=== PATIENT | male | born 1960 | race Caucasian/White ===

== ENCOUNTER 2019-06-01 10:31 | Inpatient (IN) | payer MEDICARE, OTHER, SELFPAY ==
[2019-06-01] VITALS (7 sets, daily range): BP systolic 98–121; BP diastolic 64–74; PULSE 84–110; RESP 13–18; TEMP 36.6–37.2; O2SAT 96–100; BMI 34.4
--- NOTE | ~2019-06-01 | XR_ITS ---
XR chest 2V 06/01/2019 10:49 Indication: Fever and body aches Procedure: 2 view chest Comparison: Comparison to multiple prior studies sequentially, with oldest reviewed study dated 12/2011. Findings: Heart size normal for technique. Left lung clear. Subtle right middle lobe infiltrates. No pleural effusion or pneumothorax. No edema. Impression: 1: Subtle right middle lobe infiltrates, atelectasis versus pneumonia. Reviewed, dictated and finalized at location A. NG MACHINE OPERATOR Impression: 1: Subtle right middle lobe infiltrates, atelectasis versus pneumonia.
--- NOTE | ~2019-06-01 | CT_ITS ---
EXAMINATION: CT abdomen pelvis w con DATE: 06/01/2019 12:31 INDICATION: Lower abdominal pain. History of prostatitis. UTI. TECHNIQUE: Computed tomography (CT) of the abdomen and pelvis was performed with 100 cc Omnipaque 350 intravenous contrast. The dose-length product was 1117.33 mGy-cm. Automated exposure control and ite rative reconstruction technique were employed. COMPARISON: CT dated 05/25/2018 FINDINGS: Bibasilar dependent atelectasis. No significant pleural or pericardial effusion. Heart size is normal. No significant vascular abnormality. The liver, spleen, pancreas, adrenal glands and right kidney are unremarkable. There is a small subce ntimeter hypodensity of the left kidney, most likely benign cysts. Bowel pattern is nonobstructive. N ormal appendix. Colonic diverticulosis without evidence for diverticulitis. There is surgical change of the rectum. Prostate gland is enlarged. Mild bladder wall thickening. No abnormal pelvic masses or fluid collections. There is triangular-shaped soft tissue in the left pelvis measuring 2.6 times 2 c m, possibly enlarged lymph node cysts prominent seminal vesicle. No osteolytic or osteoblastic lesion s. IMPRESSION: 1. Mildly enlarged prostate gland with surrounding infiltration, suspicious for chronic prostatitis. 2: Mild bladder wall thickening which may be due to underdistention, now with obstruction or cystitis . 3: Triangular-shaped soft tissue in the left pelvis adjacent to the external iliac vessels measuring 2.6 x 2 cm which may represent enlarged lymph node or seminal vesicle. Reviewed, dictated and finalized at location A. ETING CLERK IMPRESSION: 1. Mildly enlarged prostate gland with surrounding infiltration, suspicious for chronic prostatitis. 2: Mild bladder wall thickening which may be due to underdistention, now with o bstruction or cystitis. 3: Triangular-shaped soft tissue in the left pelvis adjacent to the external il iac vessels measuring 2.6 x 2 cm which may represent enlarged lymph node or mtathew inal vesicle.
--- NOTE | 2019-06-01 10:40 | ECG_ITS ---
Measurements Intervals [place] Rate: 104 P: 23 ID: 142 QRS: -12 QRSD: 99 T: 23 QT: 342 QTc: 451 Interpretive Statements SINUS TACHYCARDIA VOLTAGE CRITERIA FOR LVH BORDERLINE ST-T WAVE ABNORMALITY- INF/LAT LEADS ABNORMAL ECG Electronically Signed On 06-01-2019 14:18:43 HYDROBLASTER by Jovani Don D.O.
[2019-06-01 10:57] LABS: Basophils Absolute Auto 0.1 K/mm3 (0.0-0.1); Basophils Percent Auto 0.5 % (0.2-1.2); Eosinophils Absolute Auto 0.4 K/mm3 (0-0.3); Eosinophils Percent Auto 1.6 % (0-4.4); Hematocrit 38.6 % (42.0-52.0); Hemoglobin 12.5 g/dL (14.0-18.0); Immature Granulocyte Absolute 0.13 K/mm3 (0.00-0.031); Immature Granulocyte Percent A 0.6 % (0-0.5); Lymphocytes Absolute Auto 3.63 K/mm3 (0.9-3.2); Lymphocytes Percent Auto 16.9 % (18.3-44.2); Mean Corpuscular HGB Conc 32.4 g/dl (32-36); Mean Corpuscular Hemoglobin 30.6 pg (26-34); Mean Corpuscular Volume 94.6 fl (80-100); Mean Platelet Volume 10.8 fl (7.4-10.4); Monocytes Absolute Auto 1.4 K/mm3 (0.1-0.6); Monocytes Percent Auto 6.6 % (2.6-8.5); Neutrophils Absolute Auto 15.9 K/mm3 (1.3-6.7); Neutrophils Percent Auto 73.8 % (45.5-73.1); Platelet Count Result 149 k/mm3 (150-375); Red Blood Count 4.08 M/mm3 (4.6-6.20); Red Cell Distribution Width 13.6 % (11.5-14.5); White Blood Count 21.5 K/mm3 (4.5-10.0)
--- NOTE | 2019-06-01 10:59 | ED.WEAKNESS ---
HPI - Weakness General Chief complaint: Urogenital-Male Stated complaint: n/shafer/weakness Time Seen by Provider: 06/01/19 10:48 Source: patient Mode of arrival: ambulatory Limitations: no limitations History of Present Illness HPI Narrative: This is a 58 year old male that presents to the ER for urinary symptoms since last night. Reports frequency, feeling of incompletely emptying, and nausea. Also reports lower abdominal pressure. Reports generalized weakness and subjective fevers. Denies chest pain, shortness of breath, vomiting, hematuria, or cold symptoms. Related Data Home Medications Medication Instructions Recorded Confirmed alendronate 70 mg tablet 70 mg PO WEEKLY 05/12/19 aspirin 81 mg tablet,delayed 81 mg PO DAILY 05/12/19 release atorvastatin 40 mg tablet 40 mg PO DAILY 05/12/19 bupropion HCl 100 mg tablet 100 mg PO DAILY tablet 05/12/19 carvedilol 12.5 mg tablet 12.5 mg PO Q12H 05/12/19 ferrous sulfate 324 mg (65 mg 324 mg PO DAILY 05/12/19 iron) tablet,delayed release folic acid 1 mg tablet 1 mg PO DAILY 05/12/19 gabapentin 300 mg capsule 300 mg PO TID 05/12/19 hydrochlorothiazide 25 mg tablet 25 mg PO DAILY 05/12/19 infliximab 100 mg intravenous IVPB .Q4W each 05/12/19 solution methotrexate sodium 2.5 mg tablet 2.5 mg PO WEEKLY 05/12/19 multivitamin 1 tablet PO DAILY 05/12/19 naproxen 500 mg tablet 500 mg PO BID 05/12/19 oxycodone-acetaminophen 5 mg-325 1 tablet PO Q6H PRN 05/12/19 mg tablet pantoprazole 40 mg tablet,delayed 40 mg PO QAM 05/12/19 release prednisone 5 mg tablet 10 mg PO BID 05/12/19 C,E,zinc,copper [id number] cap PO 06/01/19 [Ocuvite Adult 50 Plus] carboxymethylcellulose-glycern 1 drp OPHTHALMIC (EYE) BID 06/01/19 [Refresh Optive] cetirizine [Zyrtec] 10 mg PO DAILY 06/01/19 cyclobenzaprine mg 06/01/19 glucosamine sulfate [Glucosamine] mg 06/01/19 icosapent ethyl [Vascepa] 2 g PO BID 02/02/20 magnesium citrate mg 06/01/19 potassium chloride meq 06/01/19 Allergies Allergy/AdvReac Type Severity Reaction Status Date / Time tuberculin, purified protein Allergy Mild Unknown Verified 06/01/19 12:14 deriva hydroxychloroquine Allergy Unknown vision Verified 06/01/19 10:39 changes Review of Systems Review of Systems: Narrative: CONSTITUTIONAL: Reports fever, chills ENT: Denies rhinorrhea, congestion, sore throat, or otalgia. CARDIOVASCULAR: Denies chest pain RESPIRATORY: Denies cough or dyspnea. GASTROINTESTINAL: Reports abdominal pain, nausea. Denies vomiting, or diarrhea. GENITOURINARY: Reports dysuria. Denies hematuria. NEUROLOGIC: Reports weakness. All systems reviewed & are unremarkable except as noted in HPI and below PMFSH Past Medical History Medical History (Updated 06/01/19 @ 13:39 by Marilynn Viveros PA-C) Chronic prostatitis Essential (primary) hypertension History of gastroesophageal reflux (GERD) Mixed hyperlipidemia Rheumatoid arthritis, unspecified Surgical History Surgical History (Updated 06/01/19 @ 11:00 by Marilynn Viveros PA-C) History of tonsillectomy Family History Family History (Updated 05/09/16 @ 14:43 by DOCTOR UNKNOWN) Mother Hypertension Cerebrovascular accident Father Patient's father is in good health Family history of cardiovascular disease Sibling Family history of malignant neoplasm Other Family history of tuberculosis Social History Social History (Updated 05/12/19 @ 10:21 by Negar Chacon) Smoking status: Never smoker Second hand tobacco smoke exposure: No Alcohol intake: never Substance use: never Substance use type: does not use Gender identity (if verbalized by the patient): Male Exam Narrative: Exam Narrative: GENERAL: Well-appearing, well-nourished, and in no acute distress. HEAD: Normocephalic, atraumatic. EYES: EOMI. CHEST: Clear to auscultation. No respiratory distress. No wheezes rales or rhonchi HEART: Regular rate and rhythm. No mu
[2019-06-01] MEDS: ONDANSETRON INJ 4 MG/2 ML VIAL IV PUSH ×2 (11:04→18:37)
[2019-06-01] MEDS: SODIUM CHLORIDE 0.9% IV 1,000 ML 999 ML IV CONT ×3 (11:04→14:05)
[2019-06-01 11:08] LABS: Alanine Aminotransferase 23 U/L (4-50); Albumin Level 4.2 g/dL (3.5-5.1); Alkaline Phosphatase 64 U/L (38-126); Aspartate Amino Transferase 26 U/L (17-59); Bilirubin,Total 0.7 mg/dL (0.2-1.3); Blood Urea Nitrogen 17 mg/dL (9-20); Calcium 8.9 mg/dL (8.4-10.2); Carbon Dioxide 28 mmol/L (22-30); Chloride 99 mmol/L (98-107); Estimated CRCL calculation 75 ml/min; Estimated Glomerular Filt Rate > 60; Glucose 103 mg/dL (75-110); Potassium 3.4 mmol/L (3.4-5.0); Sodium 137 mmol/L (137-145)
[2019-06-01 11:53] LABS: Add Urine Microscopic? YES; Appearance Urine Clear (Clear); Bacteria Urine Trace /hpf; Bilirubin Urine Negative (Negative); Blood Urine Negative (Negative); Color Urine Yellow (Yellow); Glucose Urine UA Negative (Negative); Ketones Urine Negative (Negative); Leukocyte Esterase Ur 3+ LEU/UL (Negative); Mucus Urine Few /lpf; Nitrate Urine Negative (Negative); Protein Urine 1+ mg/dL (Negative); Specific Grav Ur 1.018 (1.001-1.035); Urobilinogen Urine Negative mg/dL (<2.0); WBC Urine 51-75 /hpf
[2019-06-01 11:58] LABS: Lactic Acid Reflex 1.7 mmol/L (0.7-2.1)
[2019-06-01 12:02] LABS: CRP 4.8 mg/dL (<1.0)
--- NOTE | 2019-06-01 14:23 | PC.NURSE ---
This patient, Chalino Deng, was admitted to Medical Room 343-01. Patient/family oriented to hospital policies and general routines including ID bracelet, bed and alarms, visiting hours, pain management, procedures, bathroom and other care routines, personal items, smoking policy, room service/diet, and visiting hours. Valuables list has been completed. Information on how to activate the Rapid Response Team has been discussed. Patient/Family are encouraged to report perceived risks to care and to ask questions if they do not understand what they are told or what they should do.
[2019-06-01] MEDS: SODIUM CHLORIDE 0.9% IV 1,000 ML 125 ML IV CONT ×2 (14:31→20:00)
[2019-06-01] MEDS: GABAPENTIN 300 MG CAPSULE PO (17:36)
[2019-06-01] MEDS: NAPROXEN 500 MG TABLET PO (17:36)
[2019-06-01] MEDS: predniSONE 5 MG TABLET 15 MG PO (17:36)
[2019-06-01] MEDS: carvediloL 12.5 MG TABLET PO (20:00)
[2019-06-01] MEDS: ATORVASTATIN 40 MG TABLET PO (20:01)
[2019-06-01] MEDS: CYCLOBENZAPRINE HCL 10 MG TABLET PO (21:46)
[2019-06-01] MEDS: ENOXAPARIN 40 MG/0.4 ML SYRINGE SUB-Q (21:47)
[2019-06-02] VITALS (13 sets, daily range): BP systolic 105–147; BP diastolic 58–78; PULSE 76–110; RESP 16; TEMP 36.5–36.6; O2SAT 95–97
--- NOTE | 2019-06-02 01:46 | PHAR ---
PT'S HOME MED LUBRICATING PLUS EYE DROPS (CARBOXYMETHYLCELLULOSE 0.5%) VERIFIED BY PHARMACY
[2019-06-02] MEDS: SODIUM CHLORIDE 0.9% IV 1,000 ML 125 ML IV CONT (05:15)
[2019-06-02] MEDS: ONDANSETRON INJ 4 MG/2 ML VIAL IV PUSH (06:21)
[2019-06-02 06:24] LABS: Basophils Absolute Auto 0.1 K/mm3 (0.0-0.1); Basophils Percent Auto 0.3 % (0.2-1.2); Eosinophils Absolute Auto 0.1 K/mm3 (0-0.3); Eosinophils Percent Auto 0.3 % (0-4.4); Hematocrit 34.3 % (42.0-52.0); Mean Corpuscular HGB Conc 32.1 g/dl (32-36); Mean Corpuscular Hemoglobin 30.3 pg (26-34); Mean Corpuscular Volume 94.5 fl (80-100); Mean Platelet Volume 10.8 fl (7.4-10.4); Monocytes Absolute Auto 1.1 K/mm3 (0.1-0.6); Monocytes Percent Auto 5.1 % (2.6-8.5); Neutrophils Absolute Auto 16.6 K/mm3 (1.3-6.7); Neutrophils Percent Auto 80.3 % (45.5-73.1); Platelet Count Result 136 k/mm3 (150-375); Red Blood Count 3.63 M/mm3 (4.6-6.20); Red Cell Distribution Width 13.5 % (11.5-14.5); White Blood Count 20.7 K/mm3 (4.5-10.0)
[2019-06-02 06:36] LABS: Blood Urea Nitrogen 13 mg/dL (9-20); Calcium 8.1 mg/dL (8.4-10.2); Carbon Dioxide 24 mmol/L (22-30); Chloride 102 mmol/L (98-107); Estimated CRCL calculation 99 ml/min; Estimated Glomerular Filt Rate > 60; Glucose 105 mg/dL (75-110); Potassium 3.8 mmol/L (3.4-5.0); Sodium 136 mmol/L (137-145)
[2019-06-02] MEDS: carvediloL 12.5 MG TABLET PO ×2 (08:34→21:18)
[2019-06-02] MEDS: FERROUS SULFATE 324 MG TABLET PO (08:34)
[2019-06-02] MEDS: ASPIRIN 81 MG ENTERIC TABLET PO (08:35)
[2019-06-02] MEDS: buPROPion HCL 100 MG TABLET PO (08:35)
[2019-06-02] MEDS: GABAPENTIN 300 MG CAPSULE PO ×3 (08:36→16:47)
[2019-06-02] MEDS: MULTIVITAMINS THERAPEUTIC TAB (*BKC) 1 TABLET PO (08:36)
[2019-06-02] MEDS: FOLIC ACID 1 MG TABLET PO (08:36)
[2019-06-02] MEDS: PANTOPRAZOLE 40 MG TABLET PO (08:37)
[2019-06-02] MEDS: predniSONE 5 MG TABLET 15 MG PO ×2 (08:37→16:47)
[2019-06-02] MEDS: NAPROXEN 500 MG TABLET PO ×2 (08:37→16:48)
--- NOTE | 2019-06-02 10:13 | PM.IMHP ---
H&P: HPI History of Present Illness Chief complaint: sepsis Narrative: Date of visit 06/02/2019 0230Morelia Deng is a 58 year old white male with rheumatoid arthritis, hypertension, and recurrent prostatitis presented to the emergency on the a.m. of the with complaints of urgency and incomplete bladder emptying feeling slightly lightheaded nauseated and warm. Symptoms were the same he has had past with prostatitis. Was hospitalized almost uric go exactly at answer some for Klebsiella prostatitis with bacteremia at that time. since then he has done fine and followed up with his urologist Dr. Art. he does take Remicade and prednisone for his rheumatoid arthritis Review of Systems Review of Systems: Narrative: constitutional: weight steady appetite could and has actually lost a little weight trying Eye no double vision or scotoma mouth normal pulmonary no cough for shortness of breath CV no chest pain or palpitation GI no melena hematochezia last colonoscope within the last 2 years as per present illness muscle skeletal a year arthritis under fairly good control it has been treating for 12 years neuro is no seizure no syncope integument no rashes remainder the review of systems if not documented here were evaluated found to be negative [facility] Past Medical History Medical History (Updated 06/02/19 @ 10:24 by Ricardo Zelaya MD) Chronic prostatitis Essential (primary) hypertension History of gastroesophageal reflux (GERD) Mixed hyperlipidemia Rheumatoid arthritis, unspecified Surgical History Surgical History (Updated 06/01/19 @ 11:00 by Marilynn Viveros PA-C) History of tonsillectomy Family History Family History (Updated 06/01/19 @ 15:03 by Candy Mclaughlin RN) Mother Hypertension Cerebrovascular accident Father Family history of cardiovascular disease Patient's father is in good health Sibling Family history of malignant neoplasm Social History Social History (Updated 05/12/19 @ 10:21 by Negar Chacon) Smoking status: Never smoker Second hand tobacco smoke exposure: No Alcohol intake: former Substance use: never Substance use type: does not use Gender identity (if verbalized by the patient): Male Spiritual care concerns: No Agree to blood products: Yes Meds Home Medications and Allergies Home Medications Medication Instructions Recorded Confirmed Type alendronate 70 mg tablet 70 mg PO WEEKLY 05/12/19 06/01/19 History aspirin 81 mg tablet,delayed 81 mg PO DAILY 05/12/19 06/01/19 History release atorvastatin 40 mg tablet 40 mg PO HS 05/12/19 06/01/19 History bupropion HCl 100 mg tablet 100 mg PO DAILY tablet 05/12/19 06/01/19 History carvedilol 12.5 mg tablet 12.5 mg PO Q12H 05/12/19 06/01/19 History ferrous sulfate 324 mg (65 mg 324 mg PO DAILY 05/12/19 06/01/19 History iron) tablet,delayed release folic acid 1 mg tablet 1 mg PO DAILY 05/12/19 06/01/19 History gabapentin 300 mg capsule 300 mg PO TID 05/12/19 06/01/19 History hydrochlorothiazide 25 mg tablet 25 mg PO DAILY 05/12/19 06/01/19 History infliximab 100 mg intravenous 400 mg IVPB [id number] each 05/12/19 06/01/19 History solution methotrexate sodium 2.5 mg tablet 2.5 mg PO WEEKLY 05/12/19 06/01/19 History multivitamin 1 tablet PO DAILY 05/12/19 06/01/19 History naproxen 500 mg tablet 500 mg PO BID 05/12/19 06/01/19 History oxycodone-acetaminophen 5 mg-325 1 tablet PO Q6H PRN 05/12/19 06/01/19 History mg tablet pantoprazole 40 mg tablet,delayed 40 mg PO QAM 05/12/19 06/01/19 History release prednisone 5 mg tablet 10 mg PO BID 05/12/19 06/01/19 History C,E,zinc,copper [id number] 1 cap PO EVERY OTHER DAY 06/01/19 06/01/19 History [Ocuvite Adult 50 Plus] carboxymethylcellulose-glycern 1 drp OPHTHALMIC (EYE) BID 06/01/19 06/01/19 History [Refresh Optive] cetirizine [Zyrtec] 10 mg PO PRN 06/01/19 06/01/19 History cyclobenzaprine 10 mg PO HS 06/01/19 06/01/19
[2019-06-02] MEDS: OPTI-GEN TAB 1 TABLET PO (14:36)
[2019-06-02] MEDS: ATORVASTATIN 40 MG TABLET PO (21:18)
[2019-06-02] MEDS: CYCLOBENZAPRINE HCL 10 MG TABLET PO (21:18)
[2019-06-02] MEDS: ENOXAPARIN 40 MG/0.4 ML SYRINGE SUB-Q (21:18)
[2019-06-03] VITALS (12 sets, daily range): BP systolic 126–135; BP diastolic 65–82; PULSE 71–83; RESP 16–18; TEMP 36.1–36.4; O2SAT 96–98
[2019-06-03 06:13] LABS: Basophils Percent Auto 0.2 % (0.2-1.2); Eosinophils Absolute Auto 0.1 K/mm3 (0-0.3); Eosinophils Percent Auto 0.4 % (0-4.4); Hematocrit 32.4 % (42.0-52.0); Hemoglobin 10.4 g/dL (14.0-18.0); Immature Granulocyte Absolute 0.08 K/mm3 (0.00-0.031); Immature Granulocyte Percent A 0.5 % (0-0.5); Lymphocytes Absolute Auto 2.92 K/mm3 (0.9-3.2); Lymphocytes Percent Auto 17.5 % (18.3-44.2); Mean Corpuscular HGB Conc 32.1 g/dl (32-36); Mean Corpuscular Hemoglobin 30.4 pg (26-34); Mean Corpuscular Volume 94.7 fl (80-100); Mean Platelet Volume 11.6 fl (7.4-10.4); Monocytes Absolute Auto 0.7 K/mm3 (0.1-0.6); Neutrophils Absolute Auto 12.9 K/mm3 (1.3-6.7); Neutrophils Percent Auto 77.4 % (45.5-73.1); Platelet Count Result 146 k/mm3 (150-375); Red Blood Count 3.42 M/mm3 (4.6-6.20); Red Cell Distribution Width 13.8 % (11.5-14.5); White Blood Count 16.7 K/mm3 (4.5-10.0)
[2019-06-03 06:25] LABS: Blood Urea Nitrogen 16 mg/dL (9-20); Calcium 8.7 mg/dL (8.4-10.2); Carbon Dioxide 23 mmol/L (22-30); Chloride 108 mmol/L (98-107); Estimated CRCL calculation 90 ml/min; Estimated Glomerular Filt Rate > 60; Glucose 133 mg/dL (75-110); Potassium 4.3 mmol/L (3.4-5.0); Sodium 138 mmol/L (137-145)
[2019-06-03 06:38] LABS: Iron 26 ug/dL (49-181)
[2019-06-03 06:49] LABS: Percent Iron Saturation 12 % (20-50)
[2019-06-03] MEDS: buPROPion HCL 100 MG TABLET PO (08:59)
[2019-06-03] MEDS: predniSONE 5 MG TABLET 15 MG PO ×2 (08:59→18:01)
[2019-06-03] MEDS: FOLIC ACID 1 MG TABLET PO (08:59)
[2019-06-03] MEDS: PANTOPRAZOLE 40 MG TABLET PO (09:00)
[2019-06-03] MEDS: NAPROXEN 500 MG TABLET PO ×2 (09:00→18:01)
[2019-06-03] MEDS: GABAPENTIN 300 MG CAPSULE PO ×3 (09:00→18:00)
[2019-06-03] MEDS: carvediloL 12.5 MG TABLET PO ×2 (09:00→20:28)
[2019-06-03] MEDS: LORATADINE 10 MG TABLET PO (09:00)
[2019-06-03] MEDS: MULTIVITAMINS THERAPEUTIC TAB (*BKC) 1 TABLET PO (09:01)
[2019-06-03] MEDS: FERROUS SULFATE 324 MG TABLET PO (09:01)
[2019-06-03] MEDS: ASPIRIN 81 MG ENTERIC TABLET PO (09:01)
--- NOTE | 2019-06-03 13:48 | PM.IMPN ---
Progress Note: A&P Assessment and Plan (1) Sepsis: Qualifiers: Sepsis acute organ dysfunction status: without acute organ dysfunction Sepsis type: sepsis due to unspecified organism Qualified Code(s): A41.9 - Sepsis, unspecified organism Code(s): A41.9 - Sepsis, unspecified organism Status: Acute Assessment and Plan: Hypotension, leukocytosis and tachycardia. Urinary source (2) Prostatitis: Qualifiers: Prostatitis type: chronic Qualified Code(s): N41.1 - Chronic prostatitis Code(s): N41.9 - Inflammatory disease of prostate, unspecified Status: Acute Assessment and Plan: Enterococcus Sensitive to ampicillin, so d/c vanc and utilize 1000mg iv q 6h. (3) Rheumatoid arthritis, unspecified: Code(s): M06.9 - Rheumatoid arthritis, unspecified Status: Acute Assessment and Plan: Remicade on hold. Stress dose of steroids initially. part of leukocytosis could be from steroids too (4) Essential (primary) hypertension: Code(s): I10 - Essential (primary) hypertension Status: Acute Assessment and Plan: continue Coreg but hold hydrochlorothiazide (5) Anemia of chronic disease: Code(s): D63.8 - Anemia in other chronic diseases classified elsewhere Status: Acute Assessment and Plan: hemoglobin is since unchanged from previous values. will recheck iron studies though (6) PRASHANTH (obstructive sleep apnea): Code(s): G47.33 - Obstructive sleep apnea (adult) (pediatric) Status: Acute Assessment and Plan: continue nocturnal CPAP (7) DVT prophylaxis: Code(s): Z29.9 - Encounter for prophylactic measures, unspecified Status: Acute Assessment and Plan: Lovenox Subjective Date/time seen: 06/03/19 13:48 Interval history: Tolerating diet. Up and about independently. Fatigues very easily. Notes uninary frequency, mild pressure, and intermittent dysuria. Review of Systems Review of Systems: All systems reviewed & are unremarkable except as noted in HPI and below Exam Narrative: Exam Narrative: blood pressure 126/66 pulse is 90 afebrile on arrival to the emergency room pulse was 110 with systolic pressure of 98 before saline bolus pupils equal reactive to light sclera anicteric mouth normal neck supple no adenopathy thyromegaly carotid bruits lungs very faint basilar bilaterally posteriorly CV regular rate rhythm no murmurs or gallops abdomen soft nontender no masses extremities without edema distal pulses are 2+, no clubbing, no MCP swelling of the hand or ulnar drift neuro alert oriented cranial nerves 2-12 are intact no focal deficits Objective Data Vital Signs Vital Signs: Vital Signs - 24 hr 06/02/19 14:00 06/02/19 16:00 06/02/19 20:00 Temperature 97.9 F Pulse Rate 77 81 110 H Respiratory Rate 16 Blood Pressure 105/58 L Pulse Oximetry 95 06/02/19 21:18 06/02/19 21:30 06/02/19 22:00 Temperature 97.7 F Pulse Rate 81 76 88 Respiratory Rate 16 16 Blood Pressure 147/78 H Pulse Oximetry 97 97 06/03/19 00:00 06/03/19 04:00 06/03/19 06:00 Temperature 97.0 F L Pulse Rate 76 71 79 Respiratory Rate 16 Blood Pressure 126/65 Pulse Oximetry 98 06/03/19 08:00 06/03/19 09:00 06/03/19 09:02 Temperature Pulse Rate 83 75 75 Respiratory Rate 16 Blood Pressure Pulse Oximetry 98 Intake/Output Intake/Output: Intake & Output 05/31/19 06/01/19 06/02/19 06/03/19 23:59 23:59 23:59 23:59 Intake Total 4150 4200 1760 Output Total 950 4265 Balance 3200 -65 1760 Meds/Results Medications: Active Medications Generic Name Dose Route Start Last Admin Trade Name Freq PRN Reason Stop Dose Admin Aspirin 81 mg 06/02/19 09:00 06/03/19 09:01 Aspirin Ec PO 81 mg DAILY CHRIS Administration Atorvastatin Calcium 40 mg 06/01/19 21:00 06/02/19 21:18 Lipitor PO 40 mg HS CHRIS Administration Bu
[2019-06-03] MEDS: AMPICILLIN 1 GM/NS 50 ML 1 GM/50 ML BAG IVPB ×2 (14:47→20:28)
[2019-06-03] MEDS: ENOXAPARIN 40 MG/0.4 ML SYRINGE SUB-Q (20:28)
[2019-06-03] MEDS: SENNA/DOCUSATE SODIUM TABLET 1 TAB PO (20:28)
[2019-06-03] MEDS: ATORVASTATIN 40 MG TABLET PO (20:29)
[2019-06-03] MEDS: CYCLOBENZAPRINE HCL 10 MG TABLET PO (21:51)
[2019-06-03 22:48] LABS: Vancomycin Trough 8.5 ug/mL (10.0-20.0)
[2019-06-04] VITALS: PULSE 79
[2019-06-04] MEDS: AMPICILLIN 1 GM/NS 50 ML 1 GM/50 ML BAG IVPB ×2 (02:53→08:42)
[2019-06-04 04:00] VITALS: PULSE 60
[2019-06-04 05:51] LABS: Hematocrit 32.3 % (42.0-52.0); Hemoglobin 10.1 g/dL (14.0-18.0); Mean Corpuscular HGB Conc 31.3 g/dl (32-36); Mean Corpuscular Hemoglobin 29.9 pg (26-34); Mean Corpuscular Volume 95.6 fl (80-100); Mean Platelet Volume 11.3 fl (7.4-10.4); Platelet Count Result 166 k/mm3 (150-375); Red Blood Count 3.38 M/mm3 (4.6-6.20); Red Cell Distribution Width 13.9 % (11.5-14.5); White Blood Count 11.6 K/mm3 (4.5-10.0)
[2019-06-04 06:00] VITALS: BP 121/64; PULSE 68; RESP 16; TEMP 36.2; O2SAT 99
[2019-06-04 06:33] LABS: Blood Urea Nitrogen 15 mg/dL (9-20); Calcium 8.7 mg/dL (8.4-10.2); Carbon Dioxide 23 mmol/L (22-30); Chloride 104 mmol/L (98-107); Estimated CRCL calculation 111 ml/min; Estimated Glomerular Filt Rate > 60; Glucose 112 mg/dL (75-110); Sodium 136 mmol/L (137-145)
[2019-06-04 08:00] VITALS: PULSE 94
[2019-06-04] MEDS: NAPROXEN 500 MG TABLET PO (08:48)
[2019-06-04] MEDS: buPROPion HCL 100 MG TABLET PO (08:48)
[2019-06-04] MEDS: OPTI-GEN TAB 1 TABLET PO (08:48)
[2019-06-04] MEDS: FOLIC ACID 1 MG TABLET PO (08:48)
[2019-06-04] MEDS: ASPIRIN 81 MG ENTERIC TABLET PO (08:48)
[2019-06-04] MEDS: FERROUS SULFATE 324 MG TABLET PO (08:48)
[2019-06-04] MEDS: PANTOPRAZOLE 40 MG TABLET PO (08:48)
[2019-06-04] MEDS: GABAPENTIN 300 MG CAPSULE PO (08:48)
[2019-06-04 08:49] VITALS: PULSE 74
[2019-06-04] MEDS: carvediloL 12.5 MG TABLET PO (08:49)
[2019-06-04] MEDS: predniSONE 5 MG TABLET 15 MG PO (08:49)
[2019-06-04] MEDS: MULTIVITAMINS THERAPEUTIC TAB (*BKC) 1 TABLET PO (08:49)
--- NOTE | 2019-06-04 10:48 | PM.DS ---
DS: Diagnosis Admitting Diagnosis Admitting Diagnosis: Sepsis, unspecified organism Discharge Diagnosis (1) Sepsis: Qualifiers: Sepsis acute organ dysfunction status: without acute organ dysfunction Sepsis type: sepsis due to unspecified organism Qualified Code(s): A41.9 - Sepsis, unspecified organism Code(s): A41.9 - Sepsis, unspecified organism Status: Acute Assessment and Plan: Hypotension, leukocytosis and tachycardia. Urinary source (2) Prostatitis: Qualifiers: Prostatitis type: chronic Qualified Code(s): N41.1 - Chronic prostatitis Code(s): N41.9 - Inflammatory disease of prostate, unspecified Status: Acute Assessment and Plan: Enterococcus Sensitive to ampicillin, so d/c vanc and utilize 1000mg iv q 6h. (3) Rheumatoid arthritis, unspecified: Code(s): M06.9 - Rheumatoid arthritis, unspecified Status: Acute Assessment and Plan: Remicade on hold. Stress dose of steroids initially. part of leukocytosis could be from steroids too (4) Essential (primary) hypertension: Code(s): I10 - Essential (primary) hypertension Status: Acute Assessment and Plan: continue Coreg but hold hydrochlorothiazide (5) Anemia of chronic disease: Code(s): D63.8 - Anemia in other chronic diseases classified elsewhere Status: Acute Assessment and Plan: hemoglobin is since unchanged from previous values. will recheck iron studies though (6) PRASHANTH (obstructive sleep apnea): Code(s): G47.33 - Obstructive sleep apnea (adult) (pediatric) Status: Acute Assessment and Plan: continue nocturnal CPAP (7) DVT prophylaxis: Code(s): Z29.9 - Encounter for prophylactic measures, unspecified Status: Acute Assessment and Plan: Lovenox DS: Summary Hospital Course Reason for hospitalization: Dysuria and incomplete emptying. Hospital Course: Presented the emergency department with dysuria and incomplete emptying. Treated with vancomycin ceftriaxone. Culture grew enterococcus. Transition to ampicillin based upon sensitivities. Tolerated this well. Was up and about independently tolerating his diet with no complaints of dysuria by day of discharge. Time Spent with Patient Time attestation: Total time spent providing and/or coordinating discharge services: Exam Narrative: Exam Narrative: pupils equal reactive to light sclera anicteric mouth normal neck supple no adenopathy thyromegaly carotid bruits lungs very faint basilar bilaterally posteriorly CV regular rate rhythm no murmurs or gallops abdomen soft nontender no masses extremities without edema neuro alert oriented cranial nerves 2-12 are intact no focal deficits DS: Data Data Completed and Pending Labs on day of discharge: Labs from last 24 hours 06/04/19 06/04/19 06/03/19 05:25 05:25 21:01 WBC 11.6 H RBC 3.38 L Hgb 10.1 L Hct 32.3 L MCV 95.6 MCH 29.9 MCHC 31.3 L RDW 13.9 Plt Count 166 MPV 11.3 H Sodium 136 L Potassium 4.0 Chloride 104 Carbon Dioxide 23 BUN 15 Creatinine 0.80 Estim Creat Clear Calc 111 Estimated GFR > 60 Glucose 112 H Calcium 8.7 Vancomycin Trough 8.5 L Preliminary micro results at discharge 06/01/19 11:37 Blood Culture - Preliminary Blood 06/01/19 11:37 Blood Culture - Preliminary Blood Discharge Plan Discharge Attending physician on discharge: Reji Ruff Consulting providers: Marilynn Viveros Discharging Clinician: Reji Ruff Patient Disposition: Home, Self-Care Activity: as tolerated Diet: regular Patient Instructions: Antibiotic Form Stand Alone Forms: General Discharge Information Follow-up/Referrals: Tomas Hyman MD [Primary Care Provider] - 1 Week Discharge Medications: New ampicillin 500 mg capsule 1 gm PO Q6H Qty: 56 RF: 0 Continued
== END 2019-06-04 11:53 | disposition home or self-care (01) | DRG 872 ==
LOC: ANHED 13:26 → ANH3MED 13:36
PROVIDERS: Physician Assistant; Admitting Provider Internal Medicine; Emergency Provider Emergency Medicine; PCP Family Medicine; Visit Provider Internal Medicine
DX: A41.9 Sepsis, unspecified organism (principal); R65.20 Severe sepsis without septic shock; M06.9 Rheumatoid arthritis, unspecified; I10 Essential (primary) hypertension; N41.1 Chronic prostatitis; G47.33 Obstructive sleep apnea (adult) (pediatric); D63.8 Anemia in other chronic diseases classified elsewhere; E78.2 Mixed hyperlipidemia; K21.9 Gastro-esophageal reflux disease without esophagitis
CPT/HCPCS: 36415; 71046; 74177; 80048; 80053; 80202; 81001; 82728; 83540; 83550; 83605; 85025; 85027; 86140; 87040; 87077; 87086; 87088; 87186; 93005; 96365; 96366; 96368; 96375; 99285; A9270; J0131; J0290; J0696; J1650; J2405; J3370; J7030; J7512; Q9967

== ENCOUNTER 2019-06-18 16:30 | Outpatient (CLI) | payer MEDICARE, OTHER, SELFPAY ==
[2019-06-18 17:05] LABS: Basophils Absolute Auto 0.1 K/mm3 (0.0-0.1); Basophils Percent Auto 0.9 % (0.2-1.2); Eosinophils Absolute Auto 0.2 K/mm3 (0-0.3); Eosinophils Percent Auto 2.1 % (0-4.4); Hematocrit 38.2 % (42.0-52.0); Hemoglobin 12.4 g/dL (14.0-18.0); Immature Granulocyte Absolute 0.03 K/mm3 (0.00-0.031); Immature Granulocyte Percent A 0.3 % (0-0.5); Lymphocytes Absolute Auto 3.35 K/mm3 (0.9-3.2); Lymphocytes Percent Auto 36.3 % (18.3-44.2); Mean Corpuscular HGB Conc 32.5 g/dl (32-36); Mean Corpuscular Hemoglobin 30.5 pg (26-34); Mean Corpuscular Volume 94.1 fl (80-100); Mean Platelet Volume 11.5 fl (7.4-10.4); Monocytes Absolute Auto 0.5 K/mm3 (0.1-0.6); Monocytes Percent Auto 5.3 % (2.6-8.5); Neutrophils Absolute Auto 5.1 K/mm3 (1.3-6.7); Neutrophils Percent Auto 55.1 % (45.5-73.1); Platelet Count Result 235 k/mm3 (150-375); Red Blood Count 4.06 M/mm3 (4.6-6.20); Red Cell Distribution Width 13.2 % (11.5-14.5); White Blood Count 9.2 K/mm3 (4.5-10.0)
[2019-06-18 17:07] LABS: Add Urine Microscopic? NO; Appearance Urine Clear (Clear); Bilirubin Urine Negative (Negative); Blood Urine Negative (Negative); Color Urine Straw (Yellow); Glucose Urine UA Negative (Negative); Ketones Urine Negative (Negative); Leukocyte Esterase Ur Negative LEU/UL (NEGATIVE); Nitrate Urine Negative (Negative); Protein Urine Negative (Negative); Specific Grav Ur 1.009 (1.001-1.035); Urobilinogen Urine Negative mg/dL (<2.0)
[2019-06-18 18:17] LABS: Iron 78 ug/dL (49-181)
[2019-06-18 18:27] LABS: Percent Iron Saturation 30 % (20-50)
== END 2019-06-18 16:31 | disposition home or self-care (01) ==
LOC: ANHLAB 16:34
PROVIDERS: PCP Family Medicine; Visit Provider Physician Assistant
DX: N41.9 Inflammatory disease of prostate, unspecified (principal); D63.8 Anemia in other chronic diseases classified elsewhere
CPT/HCPCS: 36415; 81003; 82728; 83540; 83550; 85025; 87086

== ENCOUNTER 2019-07-03 14:55 | Outpatient (CLI) | payer MEDICARE, OTHER, SELFPAY ==
--- NOTE | ~2019-07-03 | MR_ITS ---
EXAMINATION: MR lumbar spine wo con EXAM DATE: 07/03/2019 15:52 INDICATION: Spondylosis with radiculopathy. Low back pain. TECHNIQUE: Multi-sequential, multiplanar MR images of the lumbar spine were obtained without contrast . Sagittal T1, T2, T2 fat saturation images. Axial T2 weighted images. Comparison is made to prior examination from 02/17/2017. FINDINGS: There is mild disc disease at L2-3, L4-5 and L5-S1. There is 2 mm retrolisthesis L4 on L5. The conus medullaris terminates at the T12-L1 level and has normal signal intensity and morphology. There are no suspicious marrow signal abnormalities. Paraspinal soft tissue is unremarkable. Level by level evaluation: T12-L1: Disc does not extend beyond the endplate margin. Facet arthropathy: None. Neural foraminal stenosis: No stenosis. Central canal stenosis: No stenosis. L1-L2: Disc does not extend beyond the endplate margin. Facet arthropathy: None. Neural foraminal stenosis: No stenosis. Central canal stenosis: No stenosis. L2-L3: There is a mild to moderate diffuse disc bulge. Facet arthropathy: Mild. Neural foraminal stenosis: Mild bilateral. Central canal stenosis: Mild. L3-L4: There is a minimal diffuse disc bulge. Facet arthropathy: Mild. Neural foraminal stenosis: No stenosis. Central canal stenosis: No stenosis. L4-L5: There is a moderate diffuse disc bulge. Facet arthropathy: Moderate. Neural foraminal stenosis: Moderate right, mild to moderate left. Central canal stenosis: Moderate. L5-S1: There is a mild to moderate diffuse disc bulge, asymmetric to the right Facet arthropathy: Mild to moderate. Neural foraminal stenosis: Mild to moderate bilateral. Central canal stenosis: Mild. Compared to 2017, there has been progression in the spondylosis particularly at L4-5. IMPRESSION: 1. L4-5 moderate facet arthropathy, central canal and right neural foraminal stenosis. 2. Lesser spondylosis other levels. Reviewed, dictated and finalized at location [facility]. WORK FINISHER IMPRESSION: 1. L4-5 moderate facet arthropathy, central canal and right neural foraminal s tenosis. 2. Lesser spondylosis other levels.
== END 2019-07-03 14:56 | disposition home or self-care (01) ==
LOC: ANHIMG 15:03
PROVIDERS: PCP Family Medicine
DX: M47.27 Other spondylosis with radiculopathy, lumbosacral region (principal); M54.5 Low back pain; M12.88 Other specific arthropathies, not elsewhere classified, other specified site; M48.061 Spinal stenosis, lumbar region without neurogenic claudication
CPT/HCPCS: 72148

== ENCOUNTER 2019-07-09 09:46 | Outpatient (CLI) | payer MEDICARE, OTHER, SELFPAY ==
--- NOTE | ~2019-07-09 | DEXA_ITS ---
Bone Density Report Name: Chalino Deng Age: 58 Sex: Male Ethnicity: White Date of : 1960 Indication: history of glucocorticoids; rheumatoid arthritis; Referring Provider: PHYSICIAN NOT ON STAFF Study: Bone densitometry was performed. Exam Date: July 09, 2019 Accession number: [id number] Bone Density: Region BMD T-score Z-score Classification AP Spine (L1-L4) 0.964 -1.2 -0.6 Osteopenia Femoral Neck (Left) 0.771 -1.2 -0.3 Osteopenia Total Hip (Left) 1.063 0.2 0.6 Normal Total Hip Bilateral Avg 1.035 0.0 0.4 Normal Femoral Neck (Right) 0.810 -0.9 0.0 Normal Total Hip (Right) 1.006 -0.2 0.2 Normal World Health Organization criteria for BMD impression classify patients as: Normal (T-score at or above -1.0), Osteopenia (T-score between -1.0 and -2.5), or Osteoporosis (T-score at or below -2.5). 10-year Fracture Risk(1): Major Osteoporotic Fracture 9.1% Hip Fracture 0.8% Reported Risk Factors: [place] (), Neck BMD=0.771, BMI=34.0, glucocorticoids, rheumatoid arthritis (1) FRAX(R) Version 3.08. Fracture probability calculated for an untreated patient. Fracture probability may be lower if the patient has received treatment. Clinical Information Provided by Patient: Has taken Glucocorticoids Has rheumatoid arthritis Patient maximum height was 70 Drinks caffeinated beverages Impression: The patient has low bone mass, based on the Total Spine T-score. The patient has an estimated ten-year risk of hip fracture of 0.8% and an estimated ten-year risk of major fracture of 9.1%, based on the WHO FRAX algorithm. The patient has risk factors, including: history of glucocorticoid therapy. Discussion: BONE DENSITY IS LOW AT ONE OR MORE SKELETAL SITES. This patient's lowest T-score is low at one or more skeletal sites. It meets the World Health Organization's (WHO) criteria for ?low bone mass? (T-score between -1.0 and -2.5). The patient's 10-year risk of fracture as calculated by FRAX is less than the threshold where pharmacological therapy is recommended by the National Osteoporosis Foundation (NOF). However, all treatment decisions require clinical judgment and consideration of individual patient factors, including patient preferences, comorbidities, previous drug use, risk factors not captured in the FRAX model (e.g., frailty, falls, vitamin D deficiency, increased bone turnover, interval significant decline in bone density) and possible under or overestimation of fracture risk by FRAX. The patient should follow a healthful lifestyle (good nutrition with adequate calcium and vitamin D, and appropriate weight-bearing exercise). Follow-Up: Consider repeating this study in 2 to 3 years to reassess this patient's status, or sooner if there is some new clinical indication. Reported by: [facility] on
== END 2019-07-09 09:47 | disposition home or self-care (01) ==
LOC: ANHIMG 09:51
PROVIDERS: PCP Family Medicine
DX: M81.0 Age-related osteoporosis without current pathological fracture (principal); M85.88 Other specified disorders of bone density and structure, other site; M85.852 Other specified disorders of bone density and structure, left thigh
CPT/HCPCS: 77080

== ENCOUNTER 2019-12-03 11:38 | Emergency (ER) | payer MEDICARE, OTHER, SELFPAY ==
[2019-12-03 11:44] VITALS: BP 155/88; PULSE 89; RESP 18; TEMP 37.3; O2SAT 98
[2019-12-03] MEDS: diazePAM 5 MG TABLET PO (12:07)
--- NOTE | 2019-12-03 12:52 | ED.BACK ---
HPI - Back Pain/Injury General Chief Complaint: Back Pain/Injury <STEFANIA Sanchez Last Filed: 12/03/19 14:34> Stated Complaint: back pain <STEFANIA Sanchez Last Filed: 12/03/19 14:34> Time Seen by Provider: 12/03/19 11:41 <STEFANIA Sanchez Last Filed: 12/03/19 14:34> Source: patient <STEFANIA Sanchez Last Filed: 12/03/19 14:34> Mode of arrival: ambulatory <STEFANIA Sanchez Last Filed: 12/03/19 14:34> Limitations: no limitations <STEFANIA Sanchez Last Filed: 12/03/19 14:34> History of Present Illness HPI Narrative: Patient is a 59-year-old male who presents to emergency department with several days duration of left lower back pain radiating into the left thigh patient denies injury or trauma does have history of chronic low back pain patient has scheduled follow-up with pain management by phone this week patient on arrival to emergency department was in no distress did take some of his home pain medications with minimal improvement pain is positional patient denies any fever chills URI symptoms or other complaints <STEFANIA Sanchez Last Filed: 12/03/19 14:34> Related Data Home Medications: Home Medications Medication Instructions Recorded Confirmed aspirin 81 mg tablet,delayed 81 mg PO DAILY 05/12/19 06/01/19 release atorvastatin 40 mg tablet 40 mg PO HS 05/12/19 06/01/19 bupropion HCl 100 mg tablet 100 mg PO DAILY tablet 05/12/19 06/01/19 carvedilol 12.5 mg tablet 12.5 mg PO Q12H 05/12/19 06/01/19 ferrous sulfate 324 mg (65 mg 324 mg PO DAILY 05/12/19 06/01/19 iron) tablet,delayed release folic acid 1 mg tablet 1 mg PO DAILY 05/12/19 06/01/19 gabapentin 300 mg capsule 300 mg PO TID 05/12/19 06/01/19 hydrochlorothiazide 25 mg tablet 25 mg PO DAILY 05/12/19 06/01/19 infliximab 100 mg intravenous 400 mg IVPB [id number] each 05/12/19 06/01/19 solution methotrexate sodium 2.5 mg tablet 2.5 mg PO WEEKLY 05/12/19 06/01/19 multivitamin 1 tablet PO DAILY 05/12/19 06/01/19 naproxen 500 mg tablet 500 mg PO BID 05/12/19 06/01/19 pantoprazole 40 mg tablet,delayed 40 mg PO QAM 05/12/19 06/01/19 release prednisone 5 mg tablet 10 mg PO BID 05/12/19 06/01/19 Ocuvite Adult 50 Plus 1 cap PO EVERY OTHER DAY 06/01/19 06/01/19 Refresh Optive 1 drp OPHTHALMIC (EYE) BID 06/01/19 06/01/19 Vascepa 2 g PO BID 06/01/19 06/01/19 glucosamine sulfate [Glucosamine] 500 mg DAILY 06/01/19 06/01/19 magnesium citrate 100 mg EVERY OTHER DAY 06/01/19 06/01/19 potassium chloride 10 meq PO DAILY 06/01/19 06/03/19 <William Darling PA-C - Last Filed: 12/03/19 14:34> Allergies/Adverse Reactions: Allergies Allergy/AdvReac Type Severity Reaction Status Date / Time tuberculin, purified protein Allergy Mild Unknown Verified 12/03/19 11:50 deriva hydroxychloroquine Allergy Unknown vision Verified 12/03/19 11:50 changes <William Darling PA-C - Last Filed: 12/03/19 14:34> Review of Systems Review of Systems: All systems reviewed & are unremarkable except as noted in HPI and below <William Darling PA-C - Last Filed: 12/03/19 14:34> [facility] Past Medical History Medical History: Medical History Chronic prostatitis Enterococcus UTI Essential (primary) hypertension History of gastroesophageal reflux (GERD) Leukocytosis Mixed hyperlipidemia Rheumatoid arthritis, unspecified <William Darling PA-C - Last Filed: 12/03/19 14:34> Surgical History Surgical History: Surgical History History of tonsillectomy <William Darling PA-C - Last Filed: 12/03/19 14:34> Family History Family History: Family History (Updated 06/01/19 @ 15:03 by Candy Mclaughlin RN) Mother Hypertension Cerebrovascular accident Father Family history of cardiovascular disease Patient's father is in good health Sibling Fa
--- NOTE | 2019-12-03 13:05 | PC.NURSE ---
pt has been reminded of need for ua, refusing straight cath, states he will attempt.
--- NOTE | 2019-12-03 13:30 | PC.NURSE ---
pt again reminded of need for ua, refusing cath.
[2019-12-03 14:15] LABS: Add Urine Microscopic? YES; Appearance Urine Clear (Clear); Bilirubin Urine Negative (Negative); Blood Urine Negative (Negative); Color Urine Yellow (Yellow); Glucose Urine UA Negative (Negative); Ketones Urine Trace mg/dL (Negative); Leukocyte Esterase Ur 1+ LEU/UL (Negative); Mucus Urine Rare /lpf; Nitrate Urine Negative (Negative); Protein Urine Negative (Negative); RBC Urine 0-2 /hpf (0-2); Specific Grav Ur 1.011 (1.001-1.035); Urobilinogen Urine Negative mg/dL (<2.0)
[2019-12-03 14:49] VITALS: BP 133/75; PULSE 78; RESP 16; O2SAT 100
== END 2019-12-03 14:50 | disposition home or self-care (01) ==
PROVIDERS: Emergency Medicine Emergency Medical Services; Emergency Provider General Practice; PCP Family Medicine
DX: N39.0 Urinary tract infection, site not specified (principal); M54.5 Low back pain; I10 Essential (primary) hypertension; K21.9 Gastro-esophageal reflux disease without esophagitis; E78.5 Hyperlipidemia, unspecified; M06.9 Rheumatoid arthritis, unspecified
CPT/HCPCS: 81001; 87086; 99283; A9270

== ENCOUNTER 2019-12-09 23:50 | Emergency (ER) | payer MEDICARE, OTHER, SELFPAY ==
[2019-12-10 00:08] VITALS: BP 112/61; PULSE 127; RESP 18; TEMP 36.5; O2SAT 100
--- NOTE | 2019-12-10 01:13 | ED.WOUNDLAC ---
HPI - Wound/Laceration General Chief Complaint: Wound/Laceration Stated Complaint: laceration to left leg Time Seen by Provider: 12/10/19 00:35 History of Present Illness HPI narrative: He tripped and hit his left thigh on metal shelving. He sustained a laceration to the thigh just above the knee. He has minimal pain. Unsure of last tetanus. No other pain or injury. Related Data Home Medications Medication Instructions Recorded Confirmed aspirin 81 mg tablet,delayed 81 mg PO DAILY 05/12/19 06/01/19 release atorvastatin 40 mg tablet 40 mg PO HS 05/12/19 06/01/19 bupropion HCl 100 mg tablet 100 mg PO DAILY tablet 05/12/19 06/01/19 carvedilol 12.5 mg tablet 12.5 mg PO Q12H 05/12/19 06/01/19 ferrous sulfate 324 mg (65 mg 324 mg PO DAILY 05/12/19 06/01/19 iron) tablet,delayed release folic acid 1 mg tablet 1 mg PO DAILY 05/12/19 06/01/19 gabapentin 300 mg capsule 300 mg PO TID 05/12/19 06/01/19 hydrochlorothiazide 25 mg tablet 25 mg PO DAILY 05/12/19 06/01/19 infliximab 100 mg intravenous 400 mg IVPB [id number] each 05/12/19 06/01/19 solution methotrexate sodium 2.5 mg tablet 2.5 mg PO WEEKLY 05/12/19 06/01/19 multivitamin 1 tablet PO DAILY 05/12/19 06/01/19 naproxen 500 mg tablet 500 mg PO BID 05/12/19 06/01/19 pantoprazole 40 mg tablet,delayed 40 mg PO QAM 05/12/19 06/01/19 release prednisone 5 mg tablet 10 mg PO BID 05/12/19 06/01/19 Ocuvite Adult 50 Plus 1 cap PO EVERY OTHER DAY 06/01/19 06/01/19 Refresh Optive 1 drp OPHTHALMIC (EYE) BID 06/01/19 06/01/19 Vascepa 2 g PO BID 06/01/19 06/01/19 glucosamine sulfate [Glucosamine] 500 mg DAILY 06/01/19 06/01/19 magnesium citrate 100 mg EVERY OTHER DAY 06/01/19 06/01/19 potassium chloride 10 meq PO DAILY 06/01/19 06/03/19 Allergies Allergy/AdvReac Type Severity Reaction Status Date / Time tuberculin, purified protein Allergy Mild Unknown Verified 12/10/19 00:14 deriva hydroxychloroquine Allergy Unknown vision Verified 12/10/19 00:14 changes Review of Systems Review of Systems: All systems reviewed & are unremarkable except as noted in HPI and below PMFSH Past Medical History Medical History Chronic prostatitis Enterococcus UTI Essential (primary) hypertension History of gastroesophageal reflux (GERD) Leukocytosis Mixed hyperlipidemia Rheumatoid arthritis, unspecified Surgical History Surgical History History of tonsillectomy Family History Family History Mother Hypertension Cerebrovascular accident Father Family history of cardiovascular disease Patient's father is in good health Sibling Family history of malignant neoplasm Social History Social History Smoking status: Never smoker Second hand tobacco smoke exposure: No Alcohol intake: former Substance use: never Substance use type: does not use Gender identity (if verbalized by the patient): Male Spiritual care concerns: No Agree to blood products: Yes Exam Const: General: no acute distress and alert Orientation/consciousness: patient oriented x3 HENMT: Head: normal to inspection Resp: Effort & Inspection: normal respiratory effort Auscultation: clear to auscultation bilaterally Cardio: Rate: regular rate Rhythm: regular rhythm Skin: Wounds: wounds noted (2x1 cm laceration to left thigh through the muscle) Neuro: General: patient oriented x3 and moves all extremities Speech: normal speech Extrem: General: normal to inspection Course Vital Signs Vital signs: Vital Signs Temperature 36.5 C 12/10/19 00:08 Pulse Rate 127 H 12/10/19 00:08 Respiratory Rate 18 12/10/19 00:08 Blood Pressure 112/61 12/10/19 00:08 Pulse Oximetry 100 12/10/19 00:08 Temperature 36.2 C L 12/10/19 03:16 Pulse Rate 79 12/10/19 03
[2019-12-10] MEDS: TETANUS,DIPHTHERIA,AC PERTUSSIS ADULT (0.5 ML) BOOSTRIX IM (02:24)
[2019-12-10 03:16] VITALS: BP 154/81; PULSE 79; RESP 19; TEMP 36.2; O2SAT 100
== END 2019-12-10 03:17 | disposition home or self-care (01) ==
PROVIDERS: Emergency Provider Emergency Medicine; PCP Family Medicine
DX: S71.112A Laceration without foreign body, left thigh, initial encounter (principal); Z79.82 Long term (current) use of aspirin; I10 Essential (primary) hypertension; K21.9 Gastro-esophageal reflux disease without esophagitis; E78.2 Mixed hyperlipidemia; M06.9 Rheumatoid arthritis, unspecified; Z23 Encounter for immunization
CPT/HCPCS: 12032; 90471; 90715; 99282

== ENCOUNTER 2020-05-12 13:36 | Outpatient (CLI) | payer MEDICARE, OTHER, SELFPAY ==
[2020-05-12 14:33] LABS: Alanine Aminotransferase 23 U/L (4-50); Alkaline Phosphatase 64 U/L (38-126); Anion Gap 7 mmol/L (8-16); Aspartate Amino Transferase 38 U/L (17-59); Bilirubin,Total 0.7 mg/dL (0.2-1.3); Blood Urea Nitrogen 18 mg/dL (9-20); Carbon Dioxide 29 mmol/L (22-30); Chloride 100 mmol/L (98-107); Estimated Glomerular Filt Rate > 60; Glucose 112 mg/dL (75-110); Potassium 4.1 mmol/L (3.4-5.0); Sodium 136 mmol/L (137-145)
== END 2020-05-12 13:37 | disposition home or self-care (01) ==
PROVIDERS: PCP Family Medicine; Visit Provider Family Medicine
DX: I10 Essential (primary) hypertension (principal)
CPT/HCPCS: 36415; 80053

== ENCOUNTER 2020-07-22 08:30 | Outpatient (CLI) | payer MEDICARE, OTHER, SELFPAY ==
--- NOTE | ~2020-07-22 | CT_ITS ---
EXAMINATION: CT abdomen pelvis w con DATE: 07/22/2020 09:02 INDICATION: Undescended testicle TECHNIQUE: Computed tomography (CT) of the abdomen and pelvis was performed with 100 cc Omnipaque 350 intravenous contrast. Automated exposure control and iterative reconstruction technique were employe d. Exam dose: 1014.27 mGy-cm total exam DLP. COMPARISON: 06/01/2019 CT abdomen pelvis. FINDINGS: There is dependent atelectasis of both lower lobes. Heart size is within normal range. Coronary artery calcification. No pericardial or pleural effusion. Small sliding hiatal hernia. No hepatic, splenic, pancreatic or adrenal or right renal space-occupying mass lesion. Stable small left renal cyst. No urinary tract calculus or hydroureteronephrosis. The urinary bladder and prostate gland are unremarkable. Stable undescended left pelvic testicle. There is a suture line of the rectum. Multiple diverticula of the sigmoid and descending colon and to a lesser extent transverse and ascending colon; no CT evidence of diverticulitis. Normal appendix. N o bowel obstruction, bowel wall thickening, pneumatosis or intraperitoneal free air. Normal caliber of the abdominal aorta. No intraperitoneal or retroperitoneal or pelvic mass lesion or adenopathy or ascites. No suspicious osteolytic or osteoblastic lesions. IMPRESSION: Stable undescended left pelvic testicle Stable small left renal cyst Small sliding hiatal hernia Diverticulosis of the colon Reviewed, dictated and finalized at [facility]. Reviewed, dictated and finalized at location [facility].
[2020-07-22 08:55] LABS: Estimated Glomerular Filt Rate 57
== END 2020-07-22 08:31 | disposition home or self-care (01) ==
PROVIDERS: PCP Family Medicine; Visit Provider Urology
DX: Q53.9 Undescended testicle, unspecified (principal); N28.1 Cyst of kidney, acquired; K44.9 Diaphragmatic hernia without obstruction or gangrene; K57.90 Diverticulosis of intestine, part unspecified, without perforation or abscess without bleeding
CPT/HCPCS: 74177; Q9967

== ENCOUNTER 2020-11-10 17:08 | Outpatient (CLI) | payer MEDICARE, OTHER, SELFPAY ==
[2020-11-10 17:31] LABS: Hematocrit 40.1 % (42.0-52.0); Hemoglobin 13.2 g/dL (14.0-18.0); Mean Corpuscular HGB Conc 32.9 g/dl (32-36); Mean Corpuscular Hemoglobin 30.1 pg (26-34); Mean Corpuscular Volume 91.3 fl (80-100); Mean Platelet Volume 11.1 fl (7.4-10.4); Platelet Count Result 154 k/mm3 (150-375); Red Blood Count 4.39 M/mm3 (4.6-6.20); White Blood Count 7.7 K/mm3 (4.5-10.0)
[2020-11-10 17:46] LABS: Alanine Aminotransferase 20 U/L (4-50); Albumin Level 4.3 g/dL (3.5-5.1); Alkaline Phosphatase 68 U/L (38-126); Anion Gap 8 mmol/L (8-16); Aspartate Amino Transferase 31 U/L (17-59); Bilirubin,Total 0.8 mg/dL (0.2-1.3); Blood Urea Nitrogen 15 mg/dL (9-20); Calcium 9.3 mg/dL (8.4-10.2); Carbon Dioxide 26 mmol/L (22-30); Chloride 99 mmol/L (98-107); Cholesterol 141 mg/dL (0-200); Estimated Glomerular Filt Rate > 60; Glucose 96 mg/dL (75-110); HDL Direct 38 mg/dL; Potassium 3.8 mmol/L (3.4-5.0); Sodium 133 mmol/L (137-145); Triglycerides 188 mg/dL (<150)
[2020-11-10 17:57] LABS: LDL Cholesterol Direct 64 mg/dL
[2020-11-10 19:26] LABS: Hemoglobin A1C 5.5 % (<5.7)
== END 2020-11-10 17:09 | disposition home or self-care (01) ==
PROVIDERS: PCP Family Medicine; Visit Provider Family Medicine
DX: M06.9 Rheumatoid arthritis, unspecified (principal); I10 Essential (primary) hypertension; E78.2 Mixed hyperlipidemia; E11.9 Type 2 diabetes mellitus without complications
CPT/HCPCS: 36415; 80053; 80061; 83036; 84443; 85027

== ENCOUNTER 2021-09-13 09:13 | Outpatient (CLI) | payer MEDICARE, OTHER, SELFPAY ==
--- NOTE | ~2021-09-13 | CT_ITS ---
EXAMINATION: CT abdomen pelvis w con DATE: 09/13/2021 09:52 INDICATION: Undescended left testicle. TECHNIQUE: Computed tomography (CT) of the abdomen and pelvis was performed with 100 cc Omnipaque 300 intravenous contrast. The dose-length product was 1080.29 mGy-cm. Automated exposure control and ite rative reconstruction technique were employed. COMPARISON: CT dated 07/22/2020 and 06/01/2019 FINDINGS: Lung bases are unremarkable. Heart size normal. No significant pleural or pericardial effus ion. The liver, spleen, adrenal glands and right kidney are unremarkable. There are small subcentimeter hy podensities of the left kidney, most likely benign. No significant vascular abnormality. No lymphaden opathy. Stable oval soft tissue mass in the left pelvis adjacent to the external iliac vessels, consi stent with undescended testicle. Otherwise, the pelvis is unremarkable. Nonobstructive bowel gas vale amrita. There is an anastomotic suture line in the rectum. Colonic diverticulosis without evidence for d iverticulitis. Mild lumbar spondylosis. No focal lytic or blastic lesions. No free air or free fluid. IMPRESSION: 1. Stable oval soft tissue mass in the left pelvis, consistent with an undescended testicle. 2: No acute abdominal abnormality. Reviewed, dictated and finalized at location [facility]. IMPRESSION: 1. Stable oval soft tissue mass in the left pelvis, consistent with an undescen ded testicle. 2: No acute abdominal abnormality.
[2021-09-13 09:47] LABS: Estimated Glomerular Filt Rate > 60
== END 2021-09-13 09:14 | disposition home or self-care (01) ==
PROVIDERS: PCP Family Medicine; Visit Provider Urology
DX: Q53.9 Undescended testicle, unspecified (principal)
CPT/HCPCS: 74177; Q9967

== ENCOUNTER 2021-12-28 13:31 | Outpatient (CLI) | payer MEDICARE, OTHER, SELFPAY ==
[2021-12-28 13:56] LABS: Hematocrit 39.7 % (42.0-52.0); Hemoglobin 12.9 g/dL (14.0-18.0); Mean Corpuscular HGB Conc 32.5 g/dl (32-36); Mean Corpuscular Hemoglobin 30.5 pg (26-34); Mean Corpuscular Volume 93.9 fl (80-100); Mean Platelet Volume 10.5 fl (7.4-10.4); Platelet Count Result 163 k/mm3 (150-375); Red Blood Count 4.23 M/mm3 (4.6-6.20); Red Cell Distribution Width 13.5 % (11.5-14.5); White Blood Count 7.5 K/mm3 (4.5-10.0)
[2021-12-28 14:05] LABS: Appearance Urine Clear (Clear); Bilirubin Urine 1+ (Negative); Blood Urine Negative (Negative); Color Urine Yellow (Yellow); Glucose Urine UA Negative (Negative); Ketones Urine Trace mg/dL (Negative); Leukocyte Esterase Ur Trace LEU/UL (NEGATIVE); Nitrate Urine Negative (Negative); Protein Urine Trace mg/dL (Negative); Specific Grav Ur 1.015 (1.001-1.035); Urobilinogen Urine 0.2 mg/dL (<2.0)
[2021-12-28 14:06] LABS: Alanine Aminotransferase 25 U/L (6-50); Albumin Level 4.4 g/dL (3.5-5.1); Alkaline Phosphatase 69 U/L (38-126); Anion Gap 12 mmol/L (8-16); Aspartate Amino Transferase 29 U/L (17-59); Blood Urea Nitrogen 22 mg/dL (9-20); Carbon Dioxide 26 mmol/L (22-30); Chloride 96 mmol/L (98-107); Cholesterol 130 mg/dL (0-200); Estimated Glomerular Filt Rate > 60; Glucose 106 mg/dL (65-110); HDL Direct 45 mg/dL; Potassium 3.8 mmol/L (3.4-5.0); Sodium 134 mmol/L (137-145); Triglycerides 125 mg/dL (<150)
[2021-12-28 14:14] LABS: Mucus Urine Rare /lpf; RBC Urine 0-2 /hpf (0-2)
[2021-12-28 14:15] LABS: Add Urine Microscopic? YES
[2021-12-28 14:17] LABS: LDL Cholesterol Direct 45 mg/dL
[2021-12-28 14:36] LABS: Prostate Specific Antigen 1.9 ng/mL (< OR = 4.0)
[2021-12-28 17:12] LABS: Hemoglobin A1C 5.2 % (<5.7)
== END 2021-12-28 13:32 | disposition home or self-care (01) ==
LOC: ANHLAB 13:36
PROVIDERS: PCP Family Medicine; Visit Provider Family Medicine
DX: E78.2 Mixed hyperlipidemia (principal); R73.01 Impaired fasting glucose; I10 Essential (primary) hypertension; M06.9 Rheumatoid arthritis, unspecified; R35.1 Nocturia; Z00.00 Encounter for general adult medical examination without abnormal findings
CPT/HCPCS: 36415; 80053; 80061; 81001; 83036; 84153; 84443; 85027

== ENCOUNTER 2022-05-18 09:24 | Outpatient (CLI) | payer MEDICARE, OTHER, SELFPAY ==
--- NOTE | ~2022-05-18 | MR_ITS ---
MRI of the lumbar spine Clinical History: Radiculopathy Technique: Axial T2-weighted images, and sagittal T1-weighted, T2-weighted, and T2 fat-sat images wer e acquired. COMPARISON: 07/03/2019 Findings: There is no fracture or subluxation of the lumbar spine. Vertebral bodies maintain normal h eight and alignment. No suspicious bone marrow signal abnormality seen. At L1-L2, there is no disc bulge or herniation. No spinal canal stenosis or neural foraminal narrowin g. At L2-L3, there is mild diffuse disc bulge and minimal facet arthropathy. No spinal canal stenosis. T here is minimal left neural foraminal narrowing. Right neural foramen preserved. At L3-L4, there is no disc bulge or herniation. No spinal canal stenosis or neural foraminal narrowin g. At L4-L5, there is mild disc bulge with small annular tear. Facet arthropathy is present. Probable mi nimal bilateral neural foraminal narrowing. There is lateral recess stenosis bilaterally with mild ov erall central canal stenosis. At L5-S1, there is mild disc bulge with facet arthropathy. No spinal canal stenosis or neural foramin al narrowing. Paravertebral soft tissues are unremarkable. Impression: Canal stenosis at L4-L5, as detailed above, related to disc bulge and facet arthropathy, with probabl e minimal bilateral neural foraminal narrowing. Additional minimal degenerative changes in the lumbar spine, as detailed above. Reviewed, dictated and finalized at [facility]. AL BINDER Impression: Canal stenosis at L4-L5, as detailed above, related to disc bulge and facet art hropathy, with probable minimal bilateral neural foraminal narrowing. Additional minimal degenerative changes in the lumbar spine, as detailed above.
== END 2022-05-18 09:25 | disposition home or self-care (01) ==
PROVIDERS: PCP Family Medicine
DX: M54.16 Radiculopathy, lumbar region (principal); M51.36 Other intervertebral disc degeneration, lumbar region
CPT/HCPCS: 72148

== ENCOUNTER 2022-08-26 09:36 | Outpatient (CLI) | payer MEDICARE, OTHER, SELFPAY ==
--- NOTE | ~2022-08-26 | DEXA_ITS ---
Bone Density Report Name: ASHLY CASEY Age: 61 Sex: Male Ethnicity: White Date of : 1960 Indication: osteopenia; history of glucocorticoids; rheumatoid arthritis; postmenopausal Referring Provider: BRENT WALTER Study: Bone densitometry was performed. Exam Date: August 26, 2022 Accession number: [id number] Bone Density: Region BMD T-score Z-score Classification AP Spine(L1-L4) 1.039 -0.5 0.1 Normal Femoral Neck (Left) 0.838 -0.7 0.3 Normal Total Hip (Left) 1.028 0.0 0.4 Normal Femoral Neck (Right) 0.845 -0.6 0.3 Normal Total Hip (Right) 1.008 -0.2 0.3 Normal Total Hip Mean 1.018 -0.1 0.4 Normal World Health Organization criteria for BMD impression classify patients as: Normal (T-score at or above -1.0), Osteopenia (T-score between -1.0 and -2.5), or Osteoporosis (T-score at or below -2.5). 10-year Fracture Risk: FRAX not reported because: All T-scores for Spine Total, Hip Total, Femoral Neck at or above -1.0 Previous Exams: Region Exam Age BMD T-score BMD Change BMD Change Date g/cm2 vs Baseline vs Previous AP Spine (L1-L4) 08/26/2022 61 1.039 -0.5 0.075 (7.8%)* 0.075 (7.8%)* 07/09/2019 58 0.964 -1.2 Total Hip(Left) 08/26/2022 61 1.028 0.0 -0.035 (-3.3%) -0.035 (-3.3%) 07/09/2019 58 1.063 0.2 Total Hip(Right) 08/26/2022 61 1.008 -0.2 0.002 (0.2%) 0.002 (0.2%) 07/09/2019 58 1.006 -0.2 *Denotes significance at 95% confidence level, LSC for AP Spine = 0.022 g/cm2, LSC for Total Hip = 0.027 g/cm2 Clinical Information Provided by Patient: Has taken Glucocorticoids Has rheumatoid arthritis Patient maximum height was 70 Drinks caffeinated beverages Impression: The patient has normal bone mass. The patient has risk factors, including: history of glucocorticoid therapy. The BMD for the Total Hip(Left) decreased, changing by -3.3% since the last DXA exam. Discussion: BONE DENSITY IS ABOVE THE MINIMUM DESIRABLE LEVEL AT ALL SKELETAL SITES TESTED. This patient?s bone mineral density is above the minimum desirable level (T-score -1.0 or better) at all sites measured. The patient should follow a healthful lifestyle (good nutrition with adequate calcium and vitamin D, and appropriate weight-bearing exercise). Follow-Up: Consider repeating this study in 3 to 4 years to reassess this patient's status, or sooner if there is some new clinical indication. Reported by: [facility] on 08/26/2022 10:19:00 AM.
== END 2022-08-26 09:37 | disposition home or self-care (01) ==
LOC: ANHIMG 09:37
PROVIDERS: PCP Family Medicine; Visit Provider Family Medicine
DX: M85.80 Other specified disorders of bone density and structure, unspecified site (principal); M06.9 Rheumatoid arthritis, unspecified; M81.0 Age-related osteoporosis without current pathological fracture
CPT/HCPCS: 77080

== ENCOUNTER 2023-07-30 08:39 | Outpatient (CLI) | payer MEDICARE, OTHER, SELFPAY ==
[2023-08-07 12:34] VITALS: BMI 30.8
--- NOTE | 2023-08-07 12:34 | WPDSLEEPSTUD ---
Sleep Study Date of Study: 07/30/23 Ordering Provider: Bladimir Sanders MD Interpreting Physician: Lorraine Amaral DO Sleep Study Type: Split Polysomnogram Height: 1.78 m Weight: 97.522 kg Body Mass Index: 30.8 Neck Circumference (inches): 15 [place]: 4 Reason for Sleep Study Previously diagnosed with PRASHANTH per medical record. No sleep study on file Sleep History The patient is a 62-year-old male that had a sleep study ordered by his clearance coordinator for evaluation of sleep apnea. The patient occasionally awakens from sleep short of breath. He occasionally awakens at night with heartburn, belching or cough. He occasionally snores and is frequently loud enough that others complain. He occasionally has trouble sleeping when he has a cold. He denies waking up gasping for air throughout the night. He rarely has breathing problems at night observed by himself or others. He occasionally sweats excessively at night. He rarely has heart palpitations or irregular heartbeats during the night. He rarely falls asleep during the day and never while driving. He denies sleep paralysis, cataplexy and hypnagogic / hypnopompic hallucinations. He denies having trouble at school or work due to sleepiness. He denies feeling afraid of going to sleep. He denies having nightmares. He denies remembering his dreams. He occasionally has thoughts racing through his mind. He occasionally feels sad or depressed. He occasionally has anxiety. He occasionally has muscular tension. He denies noticing parts of his body jerk. He denies kicking during the night. He rarely has crawling and aching feelings in his legs and rarely has leg pain during the night. He frequently grinds his teeth during sleep but never awakens with morning jaw pain. He is frequently bothered by pain during the day and frequently awakened by pain during the night. He frequently wakes up feeling stiff in the morning. He frequently wakes up with sore or achy muscles. He frequently wakes up with pain in the neck, spine and other joints. He goes to bed at 1:00 a.m. on both weekdays and weekends. It takes him several hours to fall asleep. He wakes up 3-4 times throughout the night to urinate and is able to fall back asleep within 15 minutes. He wakes up at 9:00 a.m. on both weekdays and weekends. He typically gets 4-5 hours of sleep per night. He will stay in bed for 1-2 hours after waking up in the morning. He currently lives with his and adult son. He will consume caffeinated beverages within 2 hours of bedtime. He denies engaging in physical exercise before bedtime. He will read watch television before falling asleep. He denies taking naps in the afternoon or the evening. He consumes 4 caffeinated beverages per day. He denies tobacco, alcohol and recreational drug use. [facility] Past Medical History Medical History Chronic prostatitis Dilated aortic root Enterococcus UTI Essential (primary) hypertension History of gastroesophageal reflux (GERD) History of retinal detachment right eye Impaired fasting glucose Left retinal detachment Leukocytosis Mixed hyperlipidemia Osteopenia Rheumatoid arthritis, unspecified Surgical History Surgical History History of detached retina repair right eye History of tonsillectomy Family History Family History Mother Hypertension Cerebrovascular accident Father Family history of cardiovascular disease Patient's father is in good health Sibling Family history of malignant neoplasm Social History Social History Smoking status: Never smoker Second hand tobacco smoke exposure: No Alcohol intake: former Substance use: never Substance use type: does not use Living arrangements: with family O
== END 2023-07-31 07:11 | disposition home or self-care (01) ==
LOC: ANHCSM 08:40
PROVIDERS: PCP Family Medicine; Visit Provider Internal Medicine Cardiovascular Disease
DX: G47.33 Obstructive sleep apnea (adult) (pediatric) (principal); Z72.821 Inadequate sleep hygiene
CPT/HCPCS: 95811

== ENCOUNTER 2023-09-12 08:19 | Outpatient (CLI) | payer MEDICARE, OTHER, SELFPAY ==
--- NOTE | ~2023-09-12 | CT_ITS ---
CT of the Abdomen and Pelvis: Indication: Undescended testicle Technique: 2.5 mm axial scans were obtained through the abdomen and pelvis following intravenous adm inistration of 100 cc of Omnipaque 350. Dose reduction technique was used on this scan by utilizing a utomated exposure control and iterative reconstruction technique. The dose-length product (DLP) was 1 067.51 mGy-cm. COMPARISON: 09/13/2021 Findings: Scans through the lung bases are unremarkable. The liver, spleen, pancreas, gallbladder, adrenals and left kidney are within normal limits. Probable punctate nonobstructing right renal stone. No evidence of aortic aneurysm. No lymphadenopathy. No bowel obstruction or bowel wall thickening. Anorectal anastomosis present.. Images through the pelvis were performed. Urinary bladder unremarkable. Small ovoid mass in the left pelvis is stable from prior exam, and could reflect undescended left testis.. Prostate gland mildly e nlarged. No ascites. Impression: Stable presumed undescended left testis in the left hemipelvis. Punctate nonobstructive right renal stone. Reviewed, dictated and finalized at location . Impression: Stable presumed undescended left testis in the left hemipelvis. Punctate nonobstructive right renal stone.
[2023-09-12 08:38] LABS: Estimated Glomerular Filt Rate > 60
== END 2023-09-12 08:20 | disposition home or self-care (01) ==
PROVIDERS: PCP Family Medicine; Visit Provider Urology
DX: Q53.9 Undescended testicle, unspecified (principal); N20.0 Calculus of kidney
CPT/HCPCS: 74177; Q9967

== ENCOUNTER 2023-11-08 01:53 | Day surgery (SDC) | payer MEDICARE, OTHER, SELFPAY ==
[2023-11-07 16:04] VITALS: BMI 30.9
[2023-11-08 07:16] VITALS: BP 111/74; PULSE 82; RESP 20; TEMP 35.9; O2SAT 98; BMI 31.1
[2023-11-08] MEDS: LACTATED RINGERS 1,000 ML 150 ML IV CONT (07:28)
--- NOTE | 2023-11-08 07:58 | WPDANESEPPF ---
Anes - Initial Pre Proc Eval Procedure: Operation Date: 11/08/23 08:30 Proposed Procedures p Esophagogastroduodenoscopy - Cesar Donaldson MD Date/Time: 11/08/23 07:58 Surgeon: Cesar Donaldson MD Pre Op Diagnosis: Dysphagia Patient Data Age: 63 Gender: M Height: 1.78 m Weight: 98.6 kg Last Vital Signs Temp 96.7 F L 11/08/23 07:16 Pulse 82 11/08/23 07:16 Resp 20 11/08/23 07:16 BP 111/74 11/08/23 07:16 Pulse Ox 98 11/08/23 07:16 O2 Del Method Room Air 11/08/23 07:16 Allergies Allergy/AdvReac Type Severity Reaction Status Date / Time tuberculin, purified protein Allergy Mild Unknown Verified 11/08/23 07:14 deriva hydroxychloroquine Allergy Unknown vision Verified 11/08/23 07:14 changes Home Medications Medication Instructions Recorded Confirmed Type atorvastatin 40 mg tablet 40 mg PO HS 05/12/19 11/07/23 History bupropion HCl 100 mg tablet 100 mg PO DAILY 05/12/19 11/07/23 History carvedilol 12.5 mg tablet (Coreg) 12.5 mg PO Q12H 05/12/19 11/07/23 History ferrous sulfate 324 mg (65 mg 324 mg PO DAILY 05/12/19 11/07/23 History iron) tablet,delayed release folic acid 1 mg tablet 1 mg PO DAILY 05/12/19 11/07/23 History gabapentin 300 mg capsule 300 mg PO TID 05/12/19 11/07/23 History hydrochlorothiazide 25 mg tablet 25 mg PO DAILY 05/12/19 11/07/23 History methotrexate sodium 2.5 mg tablet 2.5 mg PO WEEKLY 05/12/19 11/07/23 History multivitamin 1 tablet PO DAILY 05/12/19 11/07/23 History prednisone 5 mg tablet 10 mg PO BID 05/12/19 11/07/23 History carboxymethylcellulose 0.5 1 drp ophthalmic (eye) BID 06/01/19 11/07/23 History %-glycerin 0.9 % eye drops (Refresh Optive) glucosamine sulfate 500 mg tablet 500 mg DAILY 06/01/19 11/07/23 History (Glucosamine) icosapent ethyl 1 gram capsule 2 g PO BID 06/01/19 11/07/23 History (Vascepa) magnesium citrate 100 mg tablet 100 mg EVERY OTHER DAY 06/01/19 11/07/23 History potassium chloride 10 mEq 10 meq PO DAILY 06/01/19 11/07/23 History capsule,extended release vit C,E,zinc,copper-fyijh0i 250 1 cap PO EVERY OTHER DAY 06/01/19 11/07/23 History mg-lutein 5 mg-zeaxanthin 1 mg capsule (Ocuvite Adult 50 Plus) tizanidine 4 mg tablet 4 mg PO .qhs . #90 tabs 11/24/19 11/07/23 Rx metaxalone 800 mg tablet (Skelaxin) 800 mg PO TID PRN muscle pain #10 12/03/19 11/07/23 Rx tabs celecoxib 200 mg capsule (Celebrex) 200 mg PO BID 12/22/20 11/07/23 History cetirizine 10 mg tablet (Zyrtec) 10 mg PO DAILY #90 tabs 03/21/23 11/07/23 Rx aspirin 81 mg tablet,delayed 81 mg PO DAILY #90 tabs 07/05/23 11/07/23 Rx release pantoprazole 40 mg tablet,delayed 40 mg PO BID #180 tabs 10/31/23 11/07/23 Rx release cholecalciferol (vitamin D3) 10 10 mcg PO DAILY 11/07/23 11/07/23 History mcg (400 unit) capsule (Vitamin D3) golimumab 12.5 mg/mL intravenous See Rx Instructions .Route .COMPLEX 11/07/23 11/07/23 History solution (Simponi ARIA) turmeric 1,000 mg PO DAILY 11/07/23 11/07/23 History naproxen 250 mg tablet 250 mg PO BID PRN Pain 11/08/23 11/08/23 History Patient hx anesthesia problems: none Family hx anesthesia problems: none Results Review: All pre-operative results and documents have been reviewed as part of the pre-operative evaluation. [facility] Past Medical History Medical History (Updated 10/31/23 @ 15:27 by Tomas Hyman MD) Chronic prostatitis Dilated aortic root Enterococcus UTI Essential (primary) hypertension GERD (gastroesophageal reflux disease) History of gastroesophageal reflux (GERD) History of retinal detachment right eye Impaired fasting glucose Left retinal detachment Leukocytosis Mixed hyperlipidemia Osteopenia Rheumatoid arthritis, unspecified Surgical History Surgical History History of detached retina repair right eye History of tonsillectomy Family History Family History (Reviewed
--- NOTE | 2023-11-08 08:25 | PM.HPGS ---
History of Present Illness History of Present Illness Consent: Risks, benefits, and alternatives have been discussed and questions answered. Patient agrees to proceed with procedure. Chief complaint: Dysphagia Narrative: Chalino Deng is a 63 year old male with gerd on protonix, here for first EGD because of dysphagia for last few weeks Review of Systems Review of Systems: All systems reviewed & are unremarkable except as noted in HPI and below PMFSH Past Medical History Medical History (Updated 11/08/23 @ 08:26 by Cesar Donaldson MD) Chronic prostatitis Dilated aortic root Dysphagia Enterococcus UTI Essential (primary) hypertension GERD (gastroesophageal reflux disease) History of gastroesophageal reflux (GERD) History of retinal detachment right eye Impaired fasting glucose Left retinal detachment Leukocytosis Mixed hyperlipidemia Osteopenia Rheumatoid arthritis, unspecified Surgical History Surgical History History of detached retina repair right eye History of tonsillectomy Family History Family History Mother Hypertension Cerebrovascular accident Father Family history of cardiovascular disease Patient's father is in good health Sibling Family history of malignant neoplasm Social History Social History Smoking status: Never smoker Second hand tobacco smoke exposure: No Alcohol intake: former Substance use: never Substance use type: does not use Living arrangements: with family Occupation/Education: retired Gender identity (if verbalized by the patient): Male Spiritual care concerns: No Agree to blood products: Yes Meds Home Medications and Allergies Home Medications Medication Instructions Recorded Confirmed Type atorvastatin 40 mg tablet 40 mg PO HS 05/12/19 11/07/23 History bupropion HCl 100 mg tablet 100 mg PO DAILY 05/12/19 11/07/23 History carvedilol 12.5 mg tablet (Coreg) 12.5 mg PO Q12H 05/12/19 11/07/23 History ferrous sulfate 324 mg (65 mg 324 mg PO DAILY 05/12/19 11/07/23 History iron) tablet,delayed release folic acid 1 mg tablet 1 mg PO DAILY 05/12/19 11/07/23 History gabapentin 300 mg capsule 300 mg PO TID 05/12/19 11/07/23 History hydrochlorothiazide 25 mg tablet 25 mg PO DAILY 05/12/19 11/07/23 History methotrexate sodium 2.5 mg tablet 2.5 mg PO WEEKLY 05/12/19 11/07/23 History multivitamin 1 tablet PO DAILY 05/12/19 11/07/23 History prednisone 5 mg tablet 10 mg PO BID 05/12/19 11/07/23 History carboxymethylcellulose 0.5 1 drp ophthalmic (eye) BID 06/01/19 11/07/23 History %-glycerin 0.9 % eye drops (Refresh Optive) glucosamine sulfate 500 mg tablet 500 mg DAILY 06/01/19 11/07/23 History (Glucosamine) icosapent ethyl 1 gram capsule 2 g PO BID 06/01/19 11/07/23 History (Vascepa) magnesium citrate 100 mg tablet 100 mg EVERY OTHER DAY 06/01/19 11/07/23 History potassium chloride 10 mEq 10 meq PO DAILY 06/01/19 11/07/23 History capsule,extended release vit C,E,zinc,copper-[id number] 250 1 cap PO EVERY OTHER DAY 06/01/19 11/07/23 History mg-lutein 5 mg-zeaxanthin 1 mg capsule (Ocuvite Adult 50 Plus) tizanidine 4 mg tablet 4 mg PO .qhs . #90 tabs 11/24/19 11/07/23 Rx metaxalone 800 mg tablet (Skelaxin) 800 mg PO TID PRN muscle pain #10 12/03/19 11/07/23 Rx tabs celecoxib 200 mg capsule (Celebrex) 200 mg PO BID 12/22/20 11/07/23 History cetirizine 10 mg tablet (Zyrtec) 10 mg PO DAILY #90 tabs 03/21/23 11/07/23 Rx aspirin 81 mg tablet,delayed 81 mg PO DAILY #90 tabs 07/05/23 11/07/23 Rx release pantoprazole 40 mg tablet,delayed 40 mg PO BID #180 tabs 10/31/23 11/07/23 Rx release cholecalciferol (vitamin D3) 10 10 mcg PO DAILY 11/07/23 11/07/23 History mcg (400 unit) capsule (Vitamin D3) golimumab 12.5 mg/mL intravenous See Rx Instructions
[2023-11-08 08:40] VITALS: BP 105/63; PULSE 68; RESP 13; O2SAT 98
[2023-11-08 08:50] VITALS: BP 107/66; PULSE 62; RESP 15; O2SAT 98
[2023-11-08 09:00] VITALS: BP 109/69; PULSE 64; RESP 19; O2SAT 98
== END 2023-11-08 09:10 | disposition home or self-care (01) ==
PROVIDERS: PCP Family Medicine; Visit Provider Internal Medicine Gastroenterology
PROC: 0DJ08ZZ Inspection of Upper Intestinal Tract, Via Natural or Artificial Opening Endoscopic (ICD-10-PCS; CPT 43235; principal; 2023-11-08 08:30)
DX: K21.00 Gastro-esophageal reflux disease with esophagitis, without bleeding (principal); K22.2 Esophageal obstruction; K44.9 Diaphragmatic hernia without obstruction or gangrene; K29.50 Unspecified chronic gastritis without bleeding; I10 Essential (primary) hypertension; E78.2 Mixed hyperlipidemia; M06.9 Rheumatoid arthritis, unspecified; Z79.631 Long term (current) use of antimetabolite agent; Z79.82 Long term (current) use of aspirin; Z79.620 Long term (current) use of immunosuppressive biologic
CPT/HCPCS: 43249; 43239; 88305; C1726; J2704; J7120

== ENCOUNTER 2024-02-06 05:39 | Emergency (ER) | payer MEDICARE, OTHER, SELFPAY ==
[2024-02-06] VITALS (9 sets, daily range): BP systolic 118–143; BP diastolic 74–83; PULSE 55–79; RESP 10–20; TEMP 36.4–36.9; O2SAT 97–100
--- NOTE | ~2024-02-06 | CT_ITS ---
CT of the Abdomen and Pelvis: Indication: Abdominal pain Technique: 2.5 mm axial scans were obtained through the abdomen and pelvis following intravenous adm inistration of 100 cc of Omnipaque 350. Dose reduction technique was used on this scan by utilizing a utomated exposure control and iterative reconstruction technique. The dose-length product (DLP) was 9 69.40 mGy-cm. COMPARISON: 09/12/2023 Findings: Scans through the lung bases are unremarkable. The liver, spleen, pancreas, gallbladder, adrenals and kidneys are within normal limits. No evidence of aortic aneurysm. No lymphadenopathy. No bowel obstruction or bowel wall thickening. There is no evidence to suggest acute appendicitis. Images through the pelvis were performed. Urinary bladder unremarkable. Stable small mass in the left hemipelvis, just superior to the seminal vesicles, which could reflect undescended left testis (axia l image 143).. No ascites. Impression: Stable presumed undescended left testis in the left hemipelvis. No acute abnormality. Reviewed, dictated and finalized at location . Impression: Stable presumed undescended left testis in the left hemipelvis. No acute abnormality.
--- NOTE | 2024-02-06 05:56 | ED.GENADULT ---
HPI - General Adult General Chief complaint: Nausea/Vomiting/Diarrhea <Chip Acosta MD - Last Filed: 02/06/24 19:41> Stated complaint: vomiting, nausea, abdominal pain <Chip Acosta MD - Last Filed: 02/06/24 19:41> Time Seen by Provider: 02/06/24 05:44 <Chip Acosta MD - Last Filed: 02/06/24 19:41> History of Present Illness HPI narrative: 63-year-old male presents to the emergency department for evaluation of persistent nausea and vomiting that just started yesterday. patient states over the course of the night he had worsening nausea and vomiting and is unable to keep down fluids. Patient states he does have some associated abdominal pain but does not appear to be in significant distress. <Chip Acosta MD - Last Filed: 02/06/24 19:41> Related Data Home medications: Home Medications Medication Instructions Recorded Confirmed atorvastatin 40 mg tablet 40 mg PO HS 05/12/19 01/30/24 bupropion HCl 100 mg tablet 100 mg PO DAILY 05/12/19 01/30/24 carvedilol 12.5 mg tablet (Coreg) 12.5 mg PO Q12H 05/12/19 01/30/24 ferrous sulfate 324 mg (65 mg 324 mg PO DAILY 05/12/19 01/30/24 iron) tablet,delayed release folic acid 1 mg tablet 1 mg PO DAILY 05/12/19 01/30/24 gabapentin 300 mg capsule 300 mg PO TID 05/12/19 01/30/24 hydrochlorothiazide 25 mg tablet 25 mg PO DAILY 05/12/19 01/30/24 methotrexate sodium 2.5 mg tablet 2.5 mg PO WEEKLY 05/12/19 01/30/24 multivitamin 1 tablet PO DAILY 05/12/19 01/30/24 prednisone 5 mg tablet 10 mg PO BID 05/12/19 01/30/24 carboxymethylcellulose 0.5 1 drp ophthalmic (eye) BID 06/01/19 01/30/24 %-glycerin 0.9 % eye drops (Refresh Optive) glucosamine sulfate 500 mg tablet 500 mg DAILY 06/01/19 01/30/24 (Glucosamine) icosapent ethyl 1 gram capsule 2 g PO BID 06/01/19 01/30/24 (Vascepa) magnesium citrate 100 mg tablet 100 mg EVERY OTHER DAY 06/01/19 01/30/24 potassium chloride 10 mEq 10 meq PO DAILY 06/01/19 01/30/24 capsule,extended release vit C,E,zinc,copper-agilh0q 250 1 cap PO EVERY OTHER DAY 06/01/19 01/30/24 mg-lutein 5 mg-zeaxanthin 1 mg capsule (Ocuvite Adult 50 Plus) celecoxib 200 mg capsule (Celebrex) 200 mg PO BID 12/22/20 01/30/24 cholecalciferol (vitamin D3) 10 10 mcg PO DAILY 11/07/23 01/30/24 mcg (400 unit) capsule (Vitamin D3) golimumab 12.5 mg/mL intravenous See Rx Instructions .Route .COMPLEX 11/07/23 01/30/24 solution (Simponi ARIA) turmeric 1,000 mg PO DAILY 11/07/23 01/30/24 naproxen 250 mg tablet 250 mg PO BID PRN Pain 11/08/23 01/30/24 <Chip Acosta MD - Last Filed: 02/06/24 19:41> Allergies/adverse reactions: Allergies Allergy/AdvReac Type Severity Reaction Status Date / Time tuberculin, purified protein Allergy Mild Unknown Verified 01/30/24 10:52 deriva hydroxychloroquine Allergy Unknown vision Verified 01/30/24 10:52 changes <Chip Acosta MD - Last Filed: 02/06/24 19:41> Review of Systems Review of Systems: All systems reviewed & are unremarkable except as noted in HPI and below <Chip Acosta MD - Last Filed: 02/06/24 19:41> [facility] Past Medical History Medical History: Medical History Chronic prostatitis Dilated aortic root Dysphagia Enterococcus UTI Essential (primary) hypertension GERD (gastroesophageal reflux disease) History of gastroesophageal reflux (GERD) History of retinal detachment right eye Impaired fasting glucose Left retinal detachment Leukocytosis Mixed hyperlipidemia Osteopenia Rheumatoid arthritis, unspecified <Chip Acosta MD - Last Filed: 02/06/24 19:41> Surgical History Surgical History: Surgical History History of detached retina repair right eye History of tonsillectomy <Chip Acosta MD - Last Filed: 02/06/24 19:41> Family History Family History: Family History (Reviewed 01/30/24 @ 10
[2024-02-06] MEDS: ONDANSETRON INJ 4 MG/2 ML VIAL IV PUSH (06:00)
[2024-02-06 06:01] LABS: Basophils Absolute Auto 0.1 K/mm3 (0.0-0.1); Basophils Percent Auto 0.4 % (0.2-1.2); Eosinophils Absolute Auto 0.3 K/mm3 (0-0.3); Eosinophils Percent Auto 2.6 % (0-4.4); Hematocrit 37.4 % (42.0-52.0); Hemoglobin 12.7 g/dL (14.0-18.0); Immature Granulocyte Absolute 0.02 K/mm3 (0.00-0.031); Immature Granulocyte Percent A 0.2 % (0-0.5); Lymphocytes Absolute Auto 6.27 K/mm3 (0.9-3.2); Lymphocytes Percent Auto 53.2 % (18.3-44.2); Mean Corpuscular Hemoglobin 31.1 pg (26-34); Mean Corpuscular Volume 91.7 fl (80-100); Mean Platelet Volume 10.4 fl (7.4-10.4); Monocytes Absolute Auto 0.5 K/mm3 (0.1-0.6); Monocytes Percent Auto 4.1 % (2.6-8.5); Neutrophils Absolute Auto 4.7 K/mm3 (1.3-6.7); Neutrophils Percent Auto 39.5 % (45.5-73.1); Platelet Count Result 225 k/mm3 (150-375); Red Blood Count 4.08 M/mm3 (4.6-6.20); Red Cell Distribution Width 13.7 % (11.5-14.5); White Blood Count 11.8 K/mm3 (4.5-10.0)
[2024-02-06] MEDS: HYDROmorphone HCL INJ (*CRX) 1 MG/ML SYR 0.5 MG IV PUSH (06:01)
[2024-02-06 06:11] LABS: Alanine Aminotransferase 20 U/L (6-50); Albumin Level 4.4 g/dL (3.5-5.1); Alkaline Phosphatase 61 U/L (38-126); Anion Gap 10 mmol/L (4-12); Aspartate Amino Transferase 37 U/L (17-59); Bilirubin,Total 1.3 mg/dL (0.2-1.3); Blood Urea Nitrogen 14 mg/dL (9-20); Calcium 9.2 mg/dL (8.4-10.2); Carbon Dioxide 25 mmol/L (22-30); Chloride 93 mmol/L (98-107); Estimated CRCL calculation 115 ml/min; Estimated Glomerular Filt Rate > 60; Glucose 89 mg/dL (65-110); Lipase 186 U/L (23-300); Potassium 3.6 mmol/L (3.4-5.0); Sodium 128 mmol/L (137-145)
[2024-02-06 06:40] LABS: Add Urine Microscopic? YES; Appearance Urine Cloudy (Clear); Bacteria Urine None Seen /hpf; Bilirubin Urine Negative (Negative); Blood Urine Negative (Negative); Color Urine Yellow (Yellow); Glucose Urine UA Negative (Negative); Ketones Urine 3+ mg/dL (Negative); Leukocyte Esterase Ur Negative LEU/UL (Negative); Nitrate Urine Negative (Negative); Non Pathogenic Casts 0-2; Protein Urine Negative (Negative); RBC Urine 0-2 /hpf (0-2); Specific Grav Ur 1.012 (1.001-1.035); Squamous Epithelial Cell Urine None Seen /hpf (Few); WBC Urine 0-5 /hpf (0-3)
[2024-02-06 06:47] LABS: Atypical Lymphocytes Present; Platelet Estimate Adequate (Adequate); Schistocytes None Seen
[2024-02-06 07:08] LABS: Influenza A QL RT-PCR Negative (Negative); Influenza B QL RT-PCR Negative (Negative); RSV RNA, RT-PCR Negative (Negative); SARS-CoV-2 RNA PCR Negative (Negative)
[2024-02-06] MEDS: SODIUM CHLORIDE 0.9% IV 1,000 ML 999 ML IV CONT (07:13)
== END 2024-02-06 08:41 | disposition home or self-care (01) ==
PROVIDERS: Emergency Provider Emergency Medicine; PCP Family Medicine
DX: R11.2 Nausea with vomiting, unspecified (principal); Z20.822 Contact with and (suspected) exposure to COVID-19; N41.1 Chronic prostatitis; I10 Essential (primary) hypertension; E78.2 Mixed hyperlipidemia; M85.80 Other specified disorders of bone density and structure, unspecified site; M06.9 Rheumatoid arthritis, unspecified; K21.9 Gastro-esophageal reflux disease without esophagitis; Z87.440 Personal history of urinary (tract) infections
CPT/HCPCS: 36415; 74177; 80053; 81001; 83690; 85025; 87637; 96361; 96374; 96375; 99284; J1171; J2405; J7030; Q9967

== ENCOUNTER 2024-04-26 06:57 | Emergency (ER) | payer MEDICARE, OTHER, SELFPAY ==
[2024-04-26 08:56] VITALS: BP 132/67; PULSE 95; RESP 16; TEMP 37.1; O2SAT 99
--- NOTE | 2024-04-26 09:06 | PC.NURSE ---
pt left due to wait times.
--- OUTSIDE RECORDS SUMMARY | 2024-05-03 04:03 | XMS_ITS | Encounter Summary ---
Author Organization [facility] Address [address] [place] [address] Care Team Providers Care Marine Propulsion Technician Name Role Phone Isidro Heredia MD Unavailable [phone] Tomas Hyman MD Primary Care Provider [phone] Encounter Details Date Type Department Care Team (Latest Contact Info) Description 05/29/2023 Travel Social History Tobacco Use Types Packs/Day Years Used Date Smoking Tobacco: Never Smokeless Tobacco: Never Alcohol Use Standard Drinks/Week Comments No 0 (1 standard drink = 0.6 oz pur e alcohol) PHQ-2 Answer Date Recorded PHQ2 TOTAL SCORE 0 10/04/2022 Sex and Gender Information Value Date Recorded Sex Assigned at Not on file Gender Identity Not on file Sexual Orientation Not on file documented as of this encounter Plan of Treatment Upcoming Encounters Date Type Department Care Team (Late st Contact Info) Description 06/03/2024 1:00 PM FLIGHT DISPATCHER Appointment [facility] - Rheumatology [address] [place] [phone] 06/03/2024 2:00 PM FLIGHT DISPATCHER Office Visit [facility] - Rheumatology [address] [place] [phone] Gloria Smith MD [address] [place] [phone] documented as of this encounter Visit Diagnoses Not on filedocumented in this encounter Care Teams Marine Propulsion Technician Relationship Specialty Start Date End Date Tomas Hyman MD [address] [place] [address] PCP - General Family Medicine 09/05/18 Isidro Heredia MD Rheumatology 02/09/11 documented as of this encounter
--- OUTSIDE RECORDS SUMMARY | 2024-05-03 04:03 | XMS_ITS | Encounter Summary ---
Author Organization [facility] Address [address] [place] [address] Care Team Providers Care Physics Department Chair Name Role Phone Isidro Heredia MD Unavailable [phone] Tomas Hyman MD Primary Care Provider [phone] Encounter Details Date Type Department Care Team (Latest Contact Info) Description 09/18/2023 Travel Social History Tobacco Use Types Packs/Day Years Used Date Smoking Tobacco: Never Passive Smoke Exposure: Never Smokeless Tobacco: Never Alcohol Use Standard [...] st Contact Info) Description 06/03/2024 1:00 PM ATTRACTIONS ASSOCIATE Appointment [facility] - Rheumatology [address] [place] [id number] 06/03/2024 2:00 PM ATTRACTIONS ASSOCIATE Office Visit [facility] - Rheumatology [address] [place] [address] Gloria Smith MD [address] [place] [phone] documented as of this encounter Visit Diagnoses Not on filedocumented in this encounter Care Teams Physics Department Chair Relationship Specialty Start Date End Date Tomas Hyman MD [address] [place] [address] PCP - General Family Medicine 09/05/18 Isidro Heredia MD Rheumatology 02/09/11 documented as of this encounter
--- OUTSIDE RECORDS SUMMARY | 2024-05-03 04:03 | XMS_ITS | Encounter Summary ---
Author Organization [facility] Address [address] [facility] [place] [address] Care Team Providers Care Independent Distributor Name Role Phone Isidro Heredia MD Unavailable [phone] Tomas Hyman MD Primary Care Provider [phone] Reason for Visit * Treatment (Elective) - Closed Specialty Diagnoses / Procedures Referred By Lawrence shah Referred To Contact Diagnoses Rheumatoid arthritis without rheumatoid factor, multiple sites (HCC) Procedures [place] GOLIMUMAB FOR IV USE 1MG Gloria Smith MD [address] [place] [address] [address] Referral ID Status Reason Start Date Expiration Date Visits Re quested Visits Authorized [id number] Closed 05/18/2023 04/29/2024 8 8 Encounter Details Date Type Department Care Team (Late st Contact Info) Description 05/29/2023 12:47 PM WRAPPER SHEETER - 05/29/2023 11:59 PM WRAPPER SHEETER Hospital Encounter [facility] Medical [facility] - Rheumatology [address] [place] [address] Gloria Smith MD [address] [place] [address] Rheumatology Discharge Disposition: Home or Self Care Social History Tobacco Use Types Packs/Day Years [...] on file documented as of this encounter Last Filed Vital Signs Vital Sign Reading Time Taken Comments Blood Pressure 126/81 05/29/2023 1:27 PM WRAPPER SHEETER Pulse 79 05/29/2023 1:27 PM WRAPPER SHEETER Temperature 37 ??C (98.6 ??F) 05/29/2023 1:27 PM WRAPPER SHEETER Respiratory Rate - - Oxygen Saturation - - Inhaled Oxygen Concentration - - Weight 95.9 kg (211 lb 6.4 oz) 05/29/2023 1:27 P M WRAPPER SHEETER Height - - Body Mass Index 30.33 01/30/2023 10:56 AM CDT documented in this encounter Discharge Instructions * Discharge Instructions* Shelby Higgins RN - 05/29/2023 1:40 PM WRAPPER SHEETER Discharge Instructions [facility] Rheumatology You have received your infusion treatment today. You can remove your bandage when you get home. If you have a rash from your bandage, tell the infusion nurse at your next visit so that we can use a different type of dressing in the future. Our infusion staff is very experienced and can be a good resource for questions. If you have troubles such as fever, rash or breathing problems please call your [facility] physician for further instructions. While most problems that occur around the time of an infusion are very mild and not dangerous, they should not be ignored. Sunday through Sunday 9-5 call the office at [phone]. After hours or on the weekend call the exchange at [phone]. If you have had lab work done today the staff will contact you via mail, e-mail or telephone with the results. Remember to bring a copy of your labs to your visits with your primary care doctor. It may save you an unnecessary blood draw. For the patients that have internet access, we now have ???My Chart?? available for your use. ???My Chart?? gives you private access to your medical chart including test and lab results. You may also contact your physician via e -mail through ???My Chart?? . The physician will reply to your questions at their soonest opportunity. Be sure to use the telephone to communicate any emergencies. If you are interested in starting your free ???My Chart?? account please contact our staff for instructions at your next visit. We appreciate the opportunity to serve you and are glad you have chosen [facility] as your Provider PER SHEETER documented in this encounter Medications at Time of Discharge Medication Sig Dispensed Refills Start Date End Date aspirin EC (ECOTRIN) 81 MG tablet Take 1 (one) tablet by mouth once daily 90 tablet 11/14/2021 atorvastatin (LIPITOR) 40 MG tablet Take 1 (one) tablet by mouth at bedtime buPROPion (Wellbutrin) 100 MG tablet Take 1 (one) tablet by mouth 2 times daily 09/04/2022 typbohagmnl-ytwc-tmpd sorb, PF, 0.5-1-0.5 % SOLN Instill 1 drop into both eyes 2 times daily carvedilol (COREG) 12.5 MG tablet Take 1 (one) tablet by mouth 2 times daily 07/13/2020 CRANBERRY CONCENTRATE PO Take 1 capsule by mouth once daily 500 mg ferrous sulfate 325 (65 FE) MG tablet Take 1 (one) tablet by mouth once daily Glucosamine-Chondroit -Vit C-Mn (GLUCOSAMINE CHONDR 1500 COMPLX PO) Take 1 Tab by mouth once daily Golimumab (SIMPONI ARIA IV) 2 mg/kg by Intravenous route as directed Every 8 weeks hydroCHLOROthiazide (HYDRODIURIL) 25 MG tablet Take 1 (one) tablet by mouth once daily icosapent ethyl (VASCEPA) 1 g capsule Take 2 (two) capsules by mouth 2 times daily with morning and evening meal Magnesium Citrate 100 MG TABS Take 1 (one) tablet by mouth every other day Multiple Vitamin (MULTI-VITAMIN PO) Take 1 Tab by mouth once daily Multiple Vitamins-Minerals (OCUVITE ADULT 50+ PO) Take 1 tablet by mouth every other day pantoprazole EC (PROTONIX) 40 MG tablet Take 1 (one) tablet by mouth once daily 90 tablet 11/14/2021 Potassium 99 MG tablet Take 49.5 mg by mouth 2 times daily TURMERIC CURCUMIN PO Take 1,000 mg by mouth once daily ZYRTEC 10 MG TABS Take 1 (one) tablet by mouth once daily Seasonal (nov celecoxib (CeleBREX) 200 MG capsuleIndications:Rh eumatoid 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) Take 1 (one) capsule by mouth 2 times daily 180 capsule 1 11/28/2022 07/04/2023 folic acid (Folvite) 1 MG tabletIndications:Hig h risk medication use Take 1 (one) tablet by mouth once daily 90 tablet 3 09/04/2022 02/16/2024 gabapentin (Neurontin) 300 MG capsuleIndications:Ne uropathy Take 1 (one) capsule by mouth 3 times daily 270 capsule 1 11/28/2022 07/04/2023 methotrexate 2.5 MG tabletIndications:Rhe umatoid 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) Take 6 (six) tablets by mouth every 7 days 72 tablet 03/26/2023 07/04/2023 predniSONE (Deltasone) 5 MG tabletIndications:Rhe umatoid 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) Take 1 (one) tablet by mouth 2 times daily 180 tablet 1 11/28/2022 07/04/2023 tiZANidine (Zanaflex) 4 MG tabletIndications:Chr onic neck pain,Chronic back pain, unspecified back location, unspecified back pain laterality Take 1 (one) tablet by mouth 2 times daily as needed for Muscle Spasms 60 tablet 1 03/26/2023 02/16/2024 documented as of this encounter Progress Notes * Shelby Higgins, RN - 05/29/2023 1:41 PM CST JOSE Chalino Deng [id number] 05/29/2023 Diagnosis: Rheumatoid arthritis without rheumatoid factor, multiple sites ([facility]) [M06.09]. Pt denies symptoms of infection or antibiotic use, no open wounds, or recent surgery, or plans for surgery in the next couple of weeks. Pt is aware that we use the 0-10 pain scale to assess discomfort. 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 patient coordinator front desk pt signs consent for treatment for this infusion. BP 126/81 Pulse 79 Temp 98.6 ??F Wt 95.9 kg (211 lb 6.4 oz) ?? SCHEDULED MEDICATIONS: ?? golimumab (Simponi Aria) 180 mg in 0.9% NaCl IV 100 mL infusion, Intravenous, Once ?? Number of 24 gauge 3/4 inch placed in Left forearm ?? 1 attempt(s). Patient monitored throughout procedure. Last OV-05/23 Next OV-09/20 TB Gold-02/18 Hepatitis Screen-02/18 Last Routine Labs-02/19 Next Labs Due-09/20 Tolerated well? Yes Next treatment? Q 8 weeks Shelby Higgins RN PER SHEETER documented in this encounter Plan of Treatment Upcoming Encounters Date Type Department Care Team (Late st Contact Info) Description 06/03/2024 1:00 PM WRAPPER SHEETER Appointment [facility] - Rheumatology [address] [place] [address] [phone] 06/03/2024 2:00 PM WRAPPER SHEETER Office Visit [facility] - Rheumatology [address] [place] [address] Gloria Smith MD [address] [place] [phone] documented as of this encounter Visit Diagnoses Diagnosis 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)- Primary documented in this encounter Administered Medications Inactive Administered Medications - up to 3 most recent administrations Medication Order MAR Action Action Date Dose Rate Site golimumab (Simponi Aria) 180 mg in 0.9% NaCl IV 100 mL infusion 180 mg, at 200 mL/hr, Administer over 30 Minutes, Intravenous, ONCE, 1 dose, On Sun05/29/23 at 1330, Use in-line low protein binding 0.22 micrometer filter. $ New Bag/Syringe 05/29/2023 1:30 PM WRAPPER SHEETER 180 mg 220 mL/hr documented in this encounter Care Teams Independent Distributor Relationship Specialty Start Date End Date Tomas Hyman MD [address] [facility] [address] [place] [address] PCP - General Family Medicine 09/05/18 Isidro Heredia MD Rheumatology 02/09/11 documented as of this encounter
--- OUTSIDE RECORDS SUMMARY | 2024-05-03 04:03 | XMS_ITS | Encounter Summary ---
Author Organization [facility] Address [address] [place] [address] Care Team Providers Care Wash Box Operator Name Role Phone Isidro Heredia MD Unavailable [phone] Tomas Hyman MD Primary Care Provider [phone] Reason for Visit * Reason Onset Date Comments MEDICATION REFILL 02/16/2024 Encounter Details Date Type Department Care Team (Late st Contact Info) Description 02/16/2024 Refill [facility] Medical [facility] - Rheumatology [address] [place] [address] Gloria Smith MD [address] [place] [phone] MEDICATION REFILL Social History Tobacco Use Types Packs/Day Years Used Date Smoking Tobacco: Never Passive Smoke Exposure: Never Smokeless Tobacco: Never Alcohol Use Standard Drinks/Week Comments No 0 (1 standard drink = 0.6 oz pur e alcohol) PHQ-2 Answer Date Recorded Patient Health Questionnaire-2 Score 0 02/08/2024 Sex and Gender Information Value Date Recorded Sex Assigned at Not on file Gender Identity Not on file Sexual Orientation Not on file documented as of this encounter Miscellaneous Notes * Telephone Encounter - Shanice Rosa - 02/18/2024 9:25 AM CDT NON-BIOLOGIC REFILL REQUEST Last OV: 02/08/2024 Next Appointment: 06/03/2024 Last Fill: 09/05/23 Recent Labs Component Name 01/29/24 1037 09/17/23 1454 07/12/23 1520 WBC 12.7* 8.5 6.8 HGB 12.0* 12.7* 13.5 PLTCOUNT 212 181 184 MCV 94.3 90 92 Recent Labs Component Name 01/29/24 1037 09/17/23 1454 07/12/23 1520 CREATININE 1.06 1.01 1.11 BUN 11 13 18 SODIUM 133* 137 138 POTASSIUM 3.6 3.9 4.5 Recent Labs Component Name 01/29/24 1037 09/17/23 1454 07/12/23 1520 07/27/21 1107 02/08/21 1645 10/19/20 1540 08/24/20 1233 EGFR 80* 85 76 - 71 >60 >60 EGFRAFR - - - - 82 >60 >60 - = values in this interval not displayed. Recent Labs Component Name 01/29/24 1037 09/17/23 1454 07/12/23 1520 AST 28 21 21 ALT 20 16 17 ALKPHOS 59 58 58 TBIL 0.9 0.7 0.7 Last ESR: Recent Labs Component Name 05/29/23 1435 11/29/22 0911 02/08/21 1645 SEDRATE 23* 11 5 Last 3 CRP: Recent Labs Component Name 05/29/23 1435 11/29/22 0911 02/08/21 1645 CRP 0.49 <0.20 <1 Last Eye exam (if refill for hydroxychloroquine): documented in this encounter Plan of Treatment Upcoming Encounters Date Type Department Care Team (Late st Contact Info) Description 06/03/2024 1:00 PM PROCESSING REP Appointment [facility] - Rheumatology [address] [place] [address] [phone] 06/03/2024 2:00 PM PROCESSING REP Office Visit [facility] - Rheumatology [address] [place] [address] [phone] Gloria Smith MD [address] [place] [phone] documented as of this encounter Visit Diagnoses Diagnosis High risk medication use Encounter for long-term (current) use of other medications Chronic neck pain Cervicalgia Chronic back pain, unspecified back location, unspecified back pain laterality 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) Neuropathy Mononeuritis of unspecified site documented in this encounter Care Teams Wash Box Operator Relationship Specialty Start Date End Date Tomas Hyman MD [address] [facility] [address] [place] [phone] PCP - General Family Medicine 09/05/18 Isidro Heredia MD Rheumatology 02/09/11 documented as of this encounter
--- OUTSIDE RECORDS SUMMARY | 2024-05-03 04:03 | XMS_ITS | Encounter Summary ---
Author Organization [facility] Address [address] [place] [address] Care Team Providers Care Prospecting Driller Helper Name Role Phone Isidro Heredia MD Unavailable [phone] Tomas Hyman MD Primary Care Provider [phone] Reason for Visit * Treatment (Elective) - Closed Specialty Diagnoses / Procedures Referred By Lawrence shah Referred To Contact Diagnoses Rheumatoid arthritis without rheumatoid factor, multiple sites (HCC) Procedures [place] GOLIMUMAB FOR IV USE 1MG Gloria Smith MD [address] [place] [address] [address] Referral ID Status Reason Start Date Expiration Date Visits Re quested Visits Authorized [id number] Closed 05/18/2023 04/29/2024 8 8 Encounter Details Date Type Department Care Team (Late st Contact Info) Description 09/28/2023 8:45 AM CDT - 09/28/2023 11:59 PM CDT Hospital Encounter [facility] Medical [facility] - Rheumatology [address] [place] [address] Gloria Smith MD [address] [place] [address] Rheumatology Discharge Disposition: Home or [...] Sign Reading Time Taken Comments Blood Pressure 126/87 09/28/2023 9:24 AM CDT Pulse 90 09/28/2023 9:24 AM CDT Temperature 36.7 ??C (98 ??F) 09/28/2023 9:24 AM CDT Respiratory Rate - - Oxygen Saturation - - Inhaled Oxygen Concentration - - Weight 99.2 kg (218 lb 9.6 oz) 09/28/2023 9:24 A M CDT Height - - Body Mass Index 31.37 09/18/2023 3:34 PM CDT documented in this encounter Discharge Instructions * Discharge Instructions* Shelby Higgins RN - 09/28/2023 9:29 AM CDT Discharge Instructions [facility] Rheumatology You have received your infusion treatment [...] through Sunday 9-5 call the office at [phone], or infusion room on [phone]. After hours or on the weekend call the exchange at . If you have had lab work done [...] you and are glad you have chosen [facility] as your Provider documented in this encounter Medications at Time of Discharge Medication Sig Dispensed Refills Start Date End Date aspirin EC (ECOTRIN) 81 MG tablet Take 1 (one) tablet by mouth once daily 90 tablet 11/14/2021 atorvastatin (LIPITOR) 40 MG tablet Take 1 (one) tablet by mouth at bedtime buPROPion (Wellbutrin) 100 MG tablet Take 1 (one) tablet by mouth 2 times daily 09/04/2022 zfguegbuyhm-tjxg-wugt sorb, PF, 0.5-1-0.5 % SOLN Instill 1 [...] (one) tablet by mouth every other day Menaquinone-7 (K2-45) 45 MCG CAPS Take 1 capsule by mouth once daily 09/14/2023 Multiple Vitamin (MULTI-VITAMIN PO) Take 1 Tab [...] Take 1,000 mg by mouth once daily vitamin D3 (Cholecalciferol) 10 MCG (400 UNIT) tablet Take 1 (one) tablet by mouth once daily ZYRTEC 10 MG TABS Take 1 (one) tablet by mouth once daily Seasonal (nov celecoxib (CeleBREX) 200 MG capsuleIndications:Rh eumatoid 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) Take 1 (one) capsule by mouth 2 times daily 180 capsule 1 07/04/2023 02/16/2024 folic acid (Folvite) 1 MG tabletIndications:Hig h risk medication use Take 1 (one) tablet by mouth once daily 90 tablet 3 09/04/2022 02/16/2024 gabapentin (Neurontin) 300 MG capsuleIndications:Ne uropathy Take 1 (one) capsule by mouth 3 times daily 270 capsule 1 07/04/2023 02/16/2024 methotrexate 2.5 MG tabletIndications:Rhe umatoid 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) Take 6 (six) tablets by mouth every 7 days 72 tablet 07/04/2023 02/16/2024 predniSONE (Deltasone) 5 MG tabletIndications:Rhe umatoid 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) Take 1 (one) tablet by mouth 2 times daily 180 tablet 1 07/04/2023 02/16/2024 tiZANidine (Zanaflex) 4 MG tabletIndications:Chr onic neck pain,Chronic back pain, unspecified back location, unspecified back pain laterality Take 1 (one) tablet by mouth 2 times daily as needed for Muscle Spasms 60 tablet 1 03/26/2023 02/16/2024 documented as of this encounter Progress Notes * Shelby Higgins, RN - 09/28/2023 9:33 AM CDT JOSE Deng [id number] 09/28/2023 Diagnosis: Rheumatoid arthritis without rheumatoid factor, multiple sites (HCC) [M06.09]. Pt denies symptoms of infection or antibiotic use, no open wounds, or recent surgery, or plans for surgery in the next couple of weeks. Pt is aware that we use the 0-10 pain scale to assess discomfort. 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 desktop support engineer pt signs consent for treatment for this infusion. BP 126/87 Pulse 90 Temp 98 ??F Wt 99.2 kg (218 lb 9.6 oz) SCHEDULED MEDICATIONS: golimumab (Simponi Aria) 180 mg in 0.9% NaCl IV 100 mL infusion, Intravenous, Once Number of 24 gauge 3/4 inch placed in Left antecubital 1 attempt(s). Patient monitored throughout procedure. Last OV-09/20 Next OV-02/20 TB Gold-N/A Hepatitis Screen-N/A Last Routine Labs-09/20 Next Labs Due-02/20 Tolerated well? Yes Next treatment? Q 8 weeks Shelby Higgins RN documented in this encounter Plan of Treatment Upcoming Encounters Date Type Department Care Team (Late st Contact Info) Description 06/03/2024 1:00 PM MANAGER UTILITIES Appointment [facility] - Rheumatology [address] [place] [address] 06/03/2024 2:00 PM MANAGER UTILITIES Office Visit [facility] - Rheumatology [address] [place] [address] Gloria Smith MD [address] [place] [phone] documented as of this encounter Visit [...] 30 Minutes, Intravenous, ONCE, 1 dose, On Sun09/28/23 at 0930, Use in-line low protein binding 0.22 micrometer filter. $ New Bag/Syringe 09/28/2023 9:31 AM CDT 180 mg 200 mL/hr documented in this encounter Care Teams Prospecting Driller Helper Relationship Specialty Start Date End Date Tomas Hyman MD [address] [place] [address] PCP - General Family Medicine 09/05/18 Isidro Heredia MD Rheumatology 02/09/11 documented as of this encounter
--- OUTSIDE RECORDS SUMMARY | 2024-05-03 04:03 | XMS_ITS | Encounter Summary ---
Author Organization [facility] Address [address] [facility] [place] [address] Care Team Providers Care Marketing Services Vice President Name Role Phone Isidro Heredia MD Unavailable [phone] Tomas Hyman MD Primary Care Provider [phone] Encounter Details Date Type Department Care Team (Late Contact Info) Description 11/09/2023 Orders Only [facility] - Rheumatology [address] [place] [address] Gloria Smith MD [address] [place] [phone] 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) Social History Tobacco Use Types Packs/Day Years [...] Encounters Date Type Department Care Team (Late Contact Info) Description 06/03/2024 1:00 PM CHIEF RADIOLOGIC TECHNOLOGIST Appointment [facility] - Rheumatology [address] [place] [address] 06/03/2024 2:00 PM CHIEF RADIOLOGIC TECHNOLOGIST Office Visit [facility] - Rheumatology [address] [place] [address] [place] [address] Gloria Smith MD [address] [place] [phone] documented as of this encounter Visit Diagnoses Diagnosis 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) documented in this encounter Care Teams Marketing Services Vice President Relationship Specialty Start Date End Date Tomas Hyman MD [address] [facility] [address] [place] [address] PCP - General Family Medicine 09/05/18 Isidro Heredia MD Rheumatology 02/09/11 documented as of this encounter
--- OUTSIDE RECORDS SUMMARY | 2024-05-03 04:03 | XMS_ITS | Encounter Summary ---
Author Organization [facility] Address [address] [facility] [place] [address] Care Team Providers Care Tactical/Mobile Watch Officer Name Role Phone Isidro Heredia MD Unavailable [phone] Tomas Hyman MD Primary Care Provider [phone] Encounter Details Date Type Department Care Team (Latest Contact Info) Description 09/26/2023 Travel Social History Tobacco Use Types Packs/Day [...] st Contact Info) Description 06/03/2024 1:00 PM PIPE LINE WALKER Appointment [facility] Medical [facility] - Rheumatology [address] [place] [address] 06/03/2024 2:00 PM PIPE LINE WALKER Office Visit [facility] Medical [facility] - Rheumatology [address] [place] [address] Gloria Smith MD [address] [place] [phone] documented as of this encounter Visit Diagnoses Not on filedocumented in this encounter Care Teams Tactical/Mobile Watch Officer Relationship Specialty Start Date End Date Tomas Hyman MD [address] [place] [address] PCP - General Family Medicine 09/05/18 Isidro Heredia MD Rheumatology 02/09/11 documented as of this encounter
--- OUTSIDE RECORDS SUMMARY | 2024-05-03 04:03 | XMS_ITS | Encounter Summary ---
Author Organization [facility] Address [address] [facility] [place] [address] Care Team Providers Care Scaleman Name Role Phone Isidro Heredia MD Unavailable [phone] Tomas Hyman MD Primary Care Provider [phone] Reason for Visit * Treatment (Elective) - Closed Specialty Diagnoses / Procedures Referred By Lawrence shah Referred To Contact Diagnoses Rheumatoid arthritis without rheumatoid factor, multiple sites (HCC) Procedures [place] GOLIMUMAB FOR IV USE 1MG Gloria Smith MD [address] [place] [address] [address] Referral ID Status Reason Start Date Expiration Date Visits Re quested Visits Authorized [id number] Closed 05/18/2023 04/29/2024 8 8 Encounter Details Date Type Department Care Team (Late st Contact Info) Description 01/29/2024 9:00 AM CDT - 01/29/2024 11:59 PM CDT Hospital Encounter [facility] Medical [facility] - Rheumatology [address] [place] [address] Gloria Smith MD [address] [place] [address] Rheumatology Discharge Disposition: Home or [...] Sign Reading Time Taken Comments Blood Pressure 145/85 01/29/2024 9:21 AM CDT Pulse 100 01/29/2024 9:21 AM CDT Temperature 36.4 ??C (97.6 ??F) 01/29/2024 9:21 AM CD T Respiratory Rate - - Oxygen Saturation - - Inhaled Oxygen Concentration - - Weight 102.6 kg (226 lb 3.2 oz) 01/29/2024 9:21 AM CDT Height - - Body Mass Index 32.46 09/18/2023 3:34 PM CDT documented in this encounter Discharge Instructions * Discharge Instructions* Shelby Higgins RN - 01/29/2024 9:26 AM CDT Discharge Instructions [facility] Rheumatology You have received your infusion [...] through Sunday 9-5 call the office at [phone]. After hours or on the weekend call the exchange at . If you have had lab work done today the staff will contact you via mail, e-mail or telephone with the results. Remember to bring a copy of your labs [facility] It may save you an unnecessary [...] you and are glad you have chosen Enedina Padilla as your Provider documented in this encounter [...] tablet by mouth 2 times daily 09/04/2022 qlzkcxuzvka-wvme-up lysorb, PF, 0.5-1-0.5 % SOLN Instill 1 drop into both eyes 2 times daily carvedilol (COREG) 12.5 MG tablet Take 1 (one) tablet by mouth 2 times daily 07/13/2020 CRANBERRY CONCENTRATE PO Take 1 capsule by mouth once daily 500 mg ferrous sulfate 325 (65 FE) MG tablet Take 1 (one) tablet by mouth once daily Glucosamine-Chondro it-Vit C-Mn (GLUCOSAMINE CHONDR 1500 COMPLX PO) Take [...] 49.5 mg by mouth 2 times daily tirzepatide (Zepbound) 2.5 MG/0.5ML injection Inject 2.5 (two and one-half) mg subcutaneously every 7 days 01/23/2024 TURMERIC CURCUMIN PO Take 1,000 mg by mouth once daily vitamin D3 (Cholecalciferol) 10 MCG (400 UNIT) tablet Take 1 (one) tablet by mouth once daily ZYRTEC 10 MG TABS Take 1 (one) tablet by mouth once daily Seasonal (nov celecoxib (CeleBREX) 200 MG capsuleIndications: 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) Take 1 (one) capsule by mouth 2 times daily 180 capsule 1 07/04/2023 02/16/2024 folic acid (Folvite) 1 MG tabletIndications:H igh risk medication use Take 1 (one) tablet by mouth once daily 90 tablet 3 09/04/2022 02/16/2024 gabapentin (Neurontin) 300 MG capsuleIndications: Neuropathy Take 1 (one) capsule by mouth 3 times daily 270 capsule 1 07/04/2023 02/16/2024 methotrexate 2.5 MG tabletIndications:R heumatoid 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) Take 6 (six) tablets by mouth every 7 days 72 tablet 07/04/2023 02/16/2024 predniSONE (Deltasone) 5 MG tabletIndications:R heumatoid 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) Take 1 (one) tablet by mouth 2 times daily 180 tablet 1 07/04/2023 02/16/2024 tiZANidine (Zanaflex) 4 MG tabletIndications:C hronic neck pain,Chronic back pain, unspecified back location, unspecified back pain laterality Take 1 (one) tablet by mouth 2 times daily as needed for Muscle Spasms 60 tablet 1 03/26/2023 02/16/2024 documented as of this encounter Progress Notes * Shelby Higgins RN - 01/29/2024 9:26 AM CDT JOSE Deng [id number] 01/29/2024 Diagnosis: Rheumatoid arthritis without rheumatoid factor, multiple sites (HCC) [M06.09]. Pt denies symptoms of infection or antibiotic use, no open wounds, or recent surgery, or plans for surgery in the next couple of weeks. Pt is aware that we use the 0-10 pain scale to assess discomfort. 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 front office clerk pt signs consent for treatment for this infusion. BP 145/85 Pulse 100 Temp 97.6 ??F Wt 102.6 kg (226 lb 3.2 oz) SCHEDULED MEDICATIONS: golimumab (Simponi Aria) 200 mg in 0.9% NaCl IV 100 mL infusion, Intravenous, Once Number of 24 gauge 3/4 inch placed in Right antecubital 1 attempt(s). Patient monitored throughout procedure. Last OV-09/20 Next OV-02/20 TB Gold-N/A Hepatitis Screen-N/A Last Routine Labs-09/20 Next Labs Due-02/20 Tolerated well? Yes Next treatment? Q 8 weeks Shelby Higgins RN documented in this encounter Plan of Treatment Upcoming Encounters Date Type Department Care Team (Late st Contact Info) Description 06/03/2024 1:00 PM EXTERNAL RELATIONS MANAGER Appointment [facility] - Rheumatology [address] [place] [address] 06/03/2024 2:00 PM EXTERNAL RELATIONS MANAGER Office Visit [facility] - Rheumatology [address] [place] [address] Gloria Smith MD [address] [place] [phone] documented as of this encounter Visit Diagnoses Diagnosis 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)- Primary documented in this encounter Administered Medications Inactive Administered Medications - up to 3 most recent administrations Medication Order MAR Action Action Date Dose Rate Site golimumab (Simponi Aria) 200 mg in 0.9% NaCl IV 100 mL infusion 200 mg, at 200 mL/hr, Administer over 30 Minutes, Intravenous, ONCE, 1 dose, On Sun01/29/24 at 0930, 2 mg/kg ? 102.6 kg (Weight as of 01/29/2024) = 205.2 mg ? 4 mL/50 mg = 16.4 mL ? 50 mg/4 mL (rounded to the nearest 0.1 mL from 16.416 mL) = 205 mg Dose rounded to 200mg to prevent waste. Use in-line low protein binding 0.22 micrometer filter. $ New Bag/Syringe 01/29/2024 9:29 AM CDT 200 mg 200 mL/hr documented in this encounter Care Teams Scaleman Relationship Specialty Start Date End Date Tomas Hyman MD [address] [facility] [address] [place] [address] PCP - General Family Medicine 09/05/18 Isidro Heredia MD Rheumatology 02/09/11 documented as of this encounter
--- OUTSIDE RECORDS SUMMARY | 2024-05-03 04:03 | XMS_ITS | Encounter Summary ---
Author Organization [facility] Address [address] [place] [address] Care Team Providers Care Museum Host/Hostess Name Role Phone Isidro Heredia MD Unavailable [phone] Tomas Hyman MD Primary Care Provider [phone] Encounter Details Date Type Department Care Team (Late Contact Info) Description 01/04/2024 Orders Only [facility] - Rheumatology [address] [place] [address] Gloria Smith MD [address] [place] [phone] Rheumatoid arthritis of multiple sites with [...] (Late Contact Info) Description 06/03/2024 1:00 PM OFFICE MACHINE EMBOSSOGRAPH OPERATOR Appointment [facility] - Rheumatology [address] [place] [address] 06/03/2024 2:00 PM OFFICE MACHINE EMBOSSOGRAPH OPERATOR Office Visit [facility] - Rheumatology [address] [place] [address] [place] [phone] Gloria Smith MD [address] [place] [address] documented as of this encounter Procedures Procedure Name Priority Date/Time Associated Diagnosis Comments CBC W AUTO DIFFERENTIAL Routine 01/29/2024 10:37 AM CDT 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) COMPREHENSIVE METABOLIC PANEL Routine 01/29/2024 10:37 AM CDT 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) documented in this encounter Results * (ABNORMAL) COMPREHENSIVE METABOLIC PANEL (01/29/2024 10:37 AM CDT) Glucose 117(H) 70 - 99 mg/dL [facility] INSURANCE BILL BUN 11 7 - 26 mg/dL [facility] INSURANCE BILL Creatinine 1.06 0.72 - 1.25 mg/dL [facility] INSURANCE BILL eGFR by CKD-EPI 80(L) >=90 mL/min/1.7 3 m2 [facility] INSURANCE BILL Sodium 133(L) 136 - 145 mmol/L [facility] INSURANCE BILL Potassium 3.6 3.5 - 5.1 mmol/L [facility] INSURANCE BILL Chloride 101 98 - 107 mmol/L [facility] INSURANCE BILL CO2 29 22 - 29 mmol/L [facility] INSURANCE BILL Calcium 9.5 8.4 - 10.4 mg/dL [facility] INSURANCE BILL Protein Total 7.2 6.4 - 8.3 gm/dL [facility] INSURANCE BILL Albumin 4.0 3.4 - 5.0 gm/dL [facility] INSURANCE BILL Bilirubin Total 0.9 0.2 - 1.2 mg/dL [facility] INSURANCE BILL Alkaline Phosphatase 59 40 - 150 U/L [facility] INSURANCE BILL AST 28 5 - 34 U/L [facility] INSURANCE BILL ALT 20 0 - 55 U/L [facility] INSURANCE BILL Blood BLOOD SPECIMEN / Unknown 01/29/2024 10:37 AM CDT 01/29/2024 Narrative [facility] INSURANCE BILL - 01/29/2024 6:08 PM CDT Performed at: ?? [facility] [address] [place] ??[id number] [employer] Press Operator: Sanchez Wagner [facility], Phone: ??[phone] Gloria Smith MD LAB - CHEMISTRY MARII ARAUJO [facility] INSURANCE BILL [address] [place] [address] * (ABNORMAL) CBC WITH DIFFERENTIAL (01/29/2024 10:37 AM CDT) WBC 12.7(H) 4.0 - 10.7 x10E9/L [facility] INSURANCE BILL RBC 3.89(L) 4.30 - 5.80 x10E12/L [facility] INSURANCE BILL Hemoglobin 12.0(L) 13.3 - 17.5 g/dL [facility] INSURANCE BILL Hematocrit 36.7(L) 38.7 - 51.1 % [facility] INSURANCE BILL MCV 94.3 80.0 - 98.0 fL [facility] INSURANCE BILL MCH 30.8 26.7 - 33.6 pg [facility] INSURANCE BILL MCHC 32.7 31.7 - 36.3 g/dL [facility] INSURANCE BILL RDW 14.6 11.3 - 14.8 % [facility] INSURANCE BILL Platelet Count 212 150 - 420 x10E9/L [facility] INSURANCE BILL Comment:MPV (CS) 11.1 fL 7.8 -11.4 Granulocytes % 58.1 41.0 - 74.0 % [facility] INSURANCE BILL Lymphocytes % 29.8 17.0 - 47.0 % [facility] INSURANCE BILL Monocytes % 6.8 3.0 - 11.0 % [facility] INSURANCE BILL Eosinophils % 4.4 0.0 - 7.0 % [facility] INSURANCE BILL Basophils % 0.6 0.0 - 1.6 % [facility] INSURANCE BILL Granulocytes Absolute 7.37 1.60 - 7.50 x10E9/L [facility] INSURANCE BILL Lymphocytes Absolute 3.78 1.00 - 4.40 x10E9/L [facility] INSURANCE BILL Monocytes Absolute 0.86 0.15 - 1.00 x10E9/L [facility] INSURANCE BILL Eosinophils Absolute 0.56 0.00 - 0.60 x10E9/L [facility] INSURANCE BILL Basophils Absolute 0.07 0.00 - 0.13 x10E9/L [facility] INSURANCE BILL Immature Granulocytes 0.3 0.0 - 1.0 % [facility] INSURANCE BILL Blood BLOOD SPECIMEN / Unknown 01/29/2024 10:37 AM CDT 01/29/2024 Narrative [facility] INSURANCE BILL - 01/29/2024 6:08 PM CDT Performed at: ?? [facility] [address] , [place], [place] ??[id number] [employer] Operator: Sanchez Wagner [facility], Phone: ??[phone] Gloria Smith MD LAB - HEMATOLOGY ORD ERABLES [facility] INSURANCE BILL [address] [place] [address] documented in this encounter Visit Diagnoses Diagnosis 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) documented in this encounter Care Teams Museum Host/Hostess Relationship Specialty Start Date End Date Tomas Hyman MD [address] [place] [address] PCP - General Family Medicine 09/05/18 Isidro Heredia MD Rheumatology 02/09/11 documented as of this encounter
--- OUTSIDE RECORDS SUMMARY | 2024-05-03 04:03 | XMS_ITS | Encounter Summary ---
Author Organization [facility] Address [address] [place] [address] Care Team Providers Care Lead Caster Helper Name Role Phone Isidro Heredia MD Unavailable [phone] Tomas Hyman MD Primary Care Provider [phone] Reason for Visit * Treatment (Elective) - Closed Specialty Diagnoses / Procedures Referred By Lawrence shah Referred To Contact Diagnoses Rheumatoid arthritis without rheumatoid factor, multiple sites (HCC) Procedures [place] GOLIMUMAB FOR IV USE 1MG Gloria Smith MD [address] [place] [address] [address] Referral ID Status Reason Start Date Expiration Date Visits Re quested Visits Authorized [id number] Closed 05/18/2023 04/29/2024 8 8 Encounter Details Date Type Department Care Team (Late st Contact Info) Description 04/04/2024 9:45 AM REAL ESTATE COORDINATOR - 04/04/2024 11:59 PM REAL ESTATE COORDINATOR Hospital Encounter [facility] Medical [facility] - Rheumatology [address] [place] [address] Gloria Smith MD [address] [place] [address] Rheumatology Discharge Disposition: Home or [...] Sign Reading Time Taken Comments Blood Pressure 144/83 04/04/2024 10:23 AM REAL ESTATE COORDINATOR Pulse 82 04/04/2024 10:23 AM REAL ESTATE COORDINATOR Temperature 36.8 ??C (98.2 ??F) 04/04/2024 1 0:23 AM REAL ESTATE COORDINATOR Respiratory Rate - - Oxygen Saturation - - Inhaled Oxygen Concentration - - Weight 106.4 kg (234 lb 9.6 oz) 024 10:23 AM REAL ESTATE COORDINATOR Height - - Body Mass Index 33.66 02/08/2024 11:48 AM CDT documented in this encounter Discharge Instructions * Discharge Instructions* Shelby Higgins RN - 04/04/2024 10:29 AM REAL ESTATE COORDINATOR Discharge Instructions [facility] Rheumatology You have received your infusion treatment [...] through Sunday 9-5 call the office at [phone]. After hours or on the weekend call [...] have chosen Enedina Padilla as your Provider ESTATE COORDINATOR documented in this encounter Medications at Time of Discharge Medication Sig Dispensed Refills Start Date End Date aspirin EC (ECOTRIN) 81 MG tablet Take 1 (one) tablet by mouth once daily 90 tablet 11/14/2021 atorvastatin (LIPITOR) 40 MG tablet Take 1 (one) tablet by mouth at bedtime buPROPion (Wellbutrin) 100 MG tablet Take 1 (one) tablet by mouth 2 times daily 09/04/2022 clotzmgdtda-ucmq-enf ysorb, PF, 0.5-1-0.5 % SOLN Instill 1 drop into both eyes 2 times daily carvedilol (COREG) 12.5 MG tablet Take 1 (one) tablet by mouth 2 times daily 07/13/2020 celecoxib (CeleBREX) 200 MG capsuleIndications:R heumatoid 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) Take 1 (one) capsule by mouth 2 times daily 180 capsule 1 02/18/2024 CRANBERRY CONCENTRATE PO Take 1 capsule by mouth once daily 500 mg ferrous sulfate 325 (65 FE) MG tablet Take 1 (one) tablet by mouth once daily folic acid (Folvite) 1 MG tabletIndications:Hi gh risk medication use Take 1 (one) tablet by mouth once daily 90 tablet 3 02/18/2024 gabapentin (Neurontin) 300 MG capsuleIndications:N europathy Take 1 (one) capsule by mouth 3 times daily 270 capsule 1 02/18/2024 Glucosamine-Chondroi t-Vit C-Mn (GLUCOSAMINE CHONDR 1500 COMPLX PO) Take [...] 1 capsule by mouth once daily 09/14/2023 methotrexate 2.5 MG tabletIndications:Rh eumatoid 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) Take 6 (six) tablets by mouth every 7 days 72 tablet 02/18/2024 Multiple Vitamin (MULTI-VITAMIN PO) Take 1 Tab by mouth once daily Multiple Vitamins-Minerals (OCUVITE ADULT 50+ PO) Take 1 tablet by mouth every other day pantoprazole EC (PROTONIX) 40 MG tablet Take 1 (one) tablet by mouth once daily 90 tablet 11/14/2021 Potassium 99 MG tablet Take 49.5 mg by mouth 2 times daily predniSONE (Deltasone) 5 MG tabletIndications:Rh eumatoid 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) Take 1 (one) tablet by mouth 2 times daily 180 tablet 1 02/18/2024 tirzepatide (Zepbound) 2.5 MG/0.5ML injection Inject 2.5 (two and one-half) mg subcutaneously every 7 days 01/23/2024 tiZANidine (Zanaflex) 4 MG tabletIndications:Ch ronic neck pain,Chronic back pain, unspecified back location, unspecified back pain laterality Take 1 (one) tablet by mouth 2 times daily as needed for Muscle Spasms 60 tablet 1 02/18/2024 TURMERIC CURCUMIN PO Take 1,000 mg by mouth once daily vitamin D3 (Cholecalciferol) 10 MCG (400 UNIT) tablet Take 1 (one) tablet by mouth once daily ZYRTEC 10 MG TABS Take 1 (one) tablet by mouth once daily Seasonal (nov documented as of this encounter Progress Notes * Shelby Higgins, RN - 04/04/2024 10:29 AM CST JOSE Deng [id number] 04/04/2024 Diagnosis: Rheumatoid arthritis without rheumatoid factor, multiple sites (HCC) [M06.09]. Pt denies symptoms of infection or antibiotic use, no open wounds, or recent surgery, or plans for surgery in the next couple of weeks. Pt is aware that we use the 0-10 pain scale to assess discomfort. 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 desktop support associate pt signs consent for treatment for this infusion. BP 144/83 Pulse 82 Temp 98.2 ??F (36.8 ??C) Wt 106.4 kg (234 lb 9.6 oz) SCHEDULED MEDICATIONS: golimumab (Simponi Aria) 212.5 mg in 0.9% NaCl IV 100 mL infusion, Intravenous, Once Number of 24 gauge 3/4 inch placed in Right antecubital 1 attempt(s). Patient monitored throughout procedure. Last OV-02/20 Next OV-06/24 TB Gold-N/A Hepatitis Screen-N/A Last Routine Labs-02/20 Next Labs Due-06/24 Tolerated well? Yes Next treatment? Q 8 weeks Shelby Higgins RN ESTATE COORDINATOR documented in this encounter Plan of Treatment Upcoming Encounters Date Type Department Care Team (Late st Contact Info) Description 06/03/2024 1:00 PM REAL ESTATE COORDINATOR Appointment [facility] - Rheumatology [address] [place] [phone] 06/03/2024 2:00 PM REAL ESTATE COORDINATOR Office Visit [facility] - Rheumatology [address] [place] [phone] Gloria Smith MD [address] [place] [phone] documented as of this encounter Visit Diagnoses Diagnosis 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)- Primary documented in this encounter Administered Medications Inactive Administered Medications - up to 3 most recent administrations Medication Order MAR Action Action Date Dose Rate Site golimumab (Simponi Aria) 212.5 mg in 0.9% NaCl IV 100 mL infusion 212.5 mg (rounded from 212.8 mg = 2 mg/kg ? 106.4 kg), at 200 mL/hr, Administer over 30 Minutes, Intravenous, ONCE, 1 dose, On Sun04/04/24 at 1045, Use in-line low protein binding 0.22 micrometer filter. $ New Bag/Syringe 04/04/2024 10:34 AM REAL ESTATE COORDINATOR 212.5 mg 200 mL/hr documented in this encounter Care Teams Lead Caster Helper Relationship Specialty Start Date End Date Tomas Hyman MD [address] [place] [address] PCP - General Family Medicine 09/05/18 Isidro Heredia MD Rheumatology 02/09/11 documented as of this encounter
--- OUTSIDE RECORDS SUMMARY | 2024-05-03 04:03 | XMS_ITS | Patient Health Summary ---
Author Organization [facility] Address [address] [place] [address] Care Team Providers Care Engraver Letter Name Role Phone Isidro Heredia MD Unavailable [phone] Tomas Hyman MD Primary Care Provider [phone] Note from [facility],non-owned Affiliates and Associated Physician Practices is amultiple site organization consisting of ambulatory clinics and hospital sitesin [place], [place], [place] and [place]. This disclosure is being madepursuant to the Care Everywhere program and may not contain all information available regarding this patient. Last updated 18.[facility] Allergies * Hydroxychloroquine(Eye Discomfort) -High Criticality * Hydroxychloroquine Sulfate(Eye vision disturbance) * Simvastatin(GI Discomfort) -Medium Criticality * Tuberculin(Other) * Tuberculin Ppd(Positive , CXR yrly, Dx inactive TB) Medications * Be aware that medications may not be up to date on this document. Alwaysverify current medications with the patient. * ZYRTEC 10 MG TABS Take 1 (one) tablet by mouth once daily Seasonal (nov * Multiple Vitamin (MULTI-VITAMIN PO) Take 1 Tab by mouth once daily * Wqxrxgxrxof-Jgzdzerft-Zvz C-Mn (GLUCOSAMINE CHONDR 1500 COMPLX PO) Take 1 Tab by mouth once daily * Magnesium Citrate 100 MG TABS Take 1 (one) tablet by mouth every other day * atorvastatin (LIPITOR) 40 MG tablet Take 1 (one) tablet by mouth at bedtime * ferrous sulfate 325 (65 FE) MG tablet Take 1 (one) tablet by mouth once daily * hydroCHLOROthiazide (HYDRODIURIL) 25 MG tablet Take 1 (one) tablet by mouth once daily * Multiple Vitamins-Minerals (OCUVITE ADULT 50+ PO) Take 1 tablet by mouth every other day * icosapent ethyl (VASCEPA) 1 g capsule Take 2 (two) capsules by mouth 2 times daily with morning and evening meal * Potassium 99 MG tablet Take 49.5 mg by mouth 2 times daily * mybrdkpjkfq-scrq-rdqcjhbp, PF, 0.5-1-0.5 % SOLN Instill 1 drop into both eyes 2 times daily * TURMERIC CURCUMIN PO Take 1,000 mg by mouth once daily * carvedilol (COREG) 12.5 MG tablet(Started 07/13/2020) Take 1 (one) tablet by mouth 2 times daily * Golimumab (SIMPONI ARIA IV) 2 mg/kg by Intravenous route as directed Every 8 weeks * aspirin EC (ECOTRIN) 81 MG tablet(Started 11/14/2021) Take 1 (one) tablet by mouth once daily * pantoprazole EC (PROTONIX) 40 MG tablet(Started 11/14/2021) Take 1 (one) tablet by mouth once daily * buPROPion (Wellbutrin) 100 MG tablet(Started 09/04/2022) Take 1 (one) tablet by mouth 2 times daily * CRANBERRY CONCENTRATE PO Take 1 capsule by mouth once daily 500 mg * Menaquinone-7 (K2-45) 45 MCG CAPS(Started 09/14/2023) Take 1 capsule by mouth once daily * vitamin D3 (Cholecalciferol) 10 MCG (400 UNIT) tablet Take 1 (one) tablet by mouth once daily * folic acid (Folvite) 1 MG tablet(Started 02/18/2024) Take 1 (one) tablet by mouth once daily 3 refills by 02/17/2025 * tiZANidine (Zanaflex) 4 MG tablet(Started 02/18/2024) Take 1 (one) tablet by mouth 2 times daily as needed for Muscle Spasms 1 refill by 02/17/2025 * predniSONE (Deltasone) 5 MG tablet(Started 02/18/2024) Take 1 (one) tablet by mouth 2 times daily 1 refill by 02/17/2025 * celecoxib (CeleBREX) 200 MG capsule(Started 02/18/2024) Take 1 (one) capsule by mouth 2 times daily 1 refill by 02/17/2025 * gabapentin (Neurontin) 300 MG capsule(Started 02/18/2024) Take 1 (one) capsule by mouth 3 times daily 1 refill by 02/17/2025 * methotrexate 2.5 MG tablet(Started 02/18/2024) Take 6 (six) tablets by mouth every 7 days * tirzepatide (Zepbound) 2.5 MG/0.5ML injection(Started 01/23/2024) Inject 2.5 (two and one-half) mg subcutaneously every 7 days Active Problems Problem Noted Date Diagnosed Date Triceps tendonitis 08/01/2017 Triceps tendonitis 01/04/2017 Chronic right-sided low back pain with right-wang ed sciatica 09/13/2015 Abnormal LFTs 04/07/2015 Lumbar radiculopathy 05/22/2014 Other and unspecified hyperlipidemia 07/09/2013 Pain medication agreement signed 11/06/2012 Chronic pain syndrome 12/11/2011 Subacromial bursitis 09/04/2011 Anemia 08/30/2009 Osteopenia 08/24/2008 GERD (gastroesophageal reflux disease) 9 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 factor 07/21/2008 Immunizations * Covid Pfizer primary monovalent 12+ yr 0.3mL Purple cap(Given 03/22/2021, 07/19/2020, 06/28/2020) * HEP A VACCINE, ADULT(Given 04/08/1997) * INFLUENZA(Given 02/18/2020, 03/04/2019, 01/30/2011) * INFLUENZA VACCINE, CELL CULTURE, QUADR. (FLUCELVAX QUADRIVALENT; 6MO+) (CCIIV4)(Given 02/18/2020, 03/04/2019) * INFLUENZA VACCINE, QUADR. (AFLURIA, FLUZONE QUADRIVALENT; 6MO+) (IIV4)(Given 03/04/2009, 04/14/2008, 03/17/2005, 05/10/2004) * POLIO OPV(Given 10/06/1987) * Td (Adult), 2 Lf Tetanus Toxoid, Adsorbed, Pf(Given 01/19/2003, 01/11/1993) * YELLOW FEVER(Given 03/12/1990) * Zoster Hzv Vacc Recombinant Inj Im(Given 02/18/2020) Social History Tobacco Use Types Packs/Day Years [...] on file Sexual Orientation Not on file Last Filed Vital Signs Vital Sign Reading Time Taken Comments Blood Pressure 144/83 04/04/2024 10:23 AM [employer] Pulse 82 04/04/2024 10:23 AM [employer] Temperature 36.8 ??C (98.2 ??F) 04/04/2024 1 0:23 AM [employer] Respiratory Rate 16 09/18/2023 3:34 PM CDT Oxygen Saturation 100% 01/30/2023 10: 56 AM CDT Inhaled Oxygen Concentration - - Weight 106.4 kg (234 lb 9.6 oz) 024 10:23 AM [employer] Height 177.8 cm (5' 10 ) 02/08/2024 11: 48 AM CDT Body Mass Index 33.66 02/08/2024 11:48 AM CDT Procedures * COMPREHENSIVE METABOLIC PANEL(Performed 01/29/2024) Performed for 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) * CBC W AUTO DIFFERENTIAL(Performed 01/29/2024) Performed for 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) * COMPREHENSIVE METABOLIC PANEL(Performed 09/17/2023) Performed for 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) * CBC W AUTO DIFFERENTIAL(Performed 09/17/2023) Performed for 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) * COMPREHENSIVE METABOLIC PANEL(Performed 07/12/2023) Performed for 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) * CBC W AUTO DIFFERENTIAL(Performed 07/12/2023) Performed for 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) * C-REACTIVE PROTEIN(Performed 05/29/2023) Performed for 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) * ERYTHROCYTE SEDIMENTATION RATE(Performed 05/29/2023) Performed for 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) * COMPREHENSIVE METABOLIC PANEL(Performed 05/29/2023) Performed for 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) * CBC W AUTO DIFFERENTIAL(Performed 05/29/2023) Performed for 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) * COMPREHENSIVE METABOLIC PANEL(Performed 01/30/2023) Performed for 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) * CBC W AUTO DIFFERENTIAL(Performed 01/30/2023) Performed for 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) * C-REACTIVE PROTEIN(Performed 11/29/2022) Performed for 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) * ERYTHROCYTE SEDIMENTATION RATE(Performed 11/29/2022) Performed for 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) * COMPREHENSIVE METABOLIC PANEL(Performed 11/29/2022) Performed for 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) * CBC W AUTO DIFFERENTIAL(Performed 11/29/2022) Performed for 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) * COMPREHENSIVE METABOLIC PANEL(Performed 07/27/2022) Performed for High risk medication use * CBC W AUTO DIFFERENTIAL(Performed 07/27/2022) Performed for High risk medication use * COMPREHENSIVE METABOLIC PANEL(Performed 04/12/2022) Performed for High risk medication use * CBC W AUTO DIFFERENTIAL(Performed 04/12/2022) Performed for High risk medication use * HEPATITIS SCREEN ACUTE ([facility])(Performed 02/10/2022) Performed for 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), Fatigue, unspecified type * VITAMIN D 25-HYDROXY(Performed 02/10/2022) Performed for Vitamin D deficiency * QUANTIFERON TB-GOLD(Performed 02/10/2022) Performed for 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) * LAB RESULTS ORDER(Performed 12/28/2021) * COMPREHENSIVE METABOLIC PANEL(Performed 07/27/2021) Performed for 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) * CBC W AUTO DIFFERENTIAL(Performed 07/27/2021) Performed for 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) * REF LAB-ABN TEST REFUSAL(Performed 02/08/2021) * C-REACTIVE PROTEIN(Performed 02/08/2021) Performed for 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) * ERYTHROCYTE SEDIMENTATION RATE(Performed 02/08/2021) Performed for 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) * COMPREHENSIVE METABOLIC PANEL(Performed 02/08/2021) Performed for 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) * CBC W AUTO DIFFERENTIAL(Performed 02/08/2021) Performed for 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) * VITAMIN B12(Performed 02/08/2021) Performed for 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), Fatigue, unspecified type * COMPREHENSIVE METABOLIC PANEL(Performed 10/19/2020) Performed for 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) * CBC W AUTO DIFFERENTIAL(Performed 10/19/2020) Performed for 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) * QUANTIFERON TB-GOLD(Performed 08/24/2020) Performed for 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) * COMPREHENSIVE METABOLIC PANEL(Performed 08/24/2020) Performed for 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) * CBC W AUTO DIFFERENTIAL(Performed 08/24/2020) Performed for 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) * THIOPURINE METHYLTRANSFERASE(Performed 07/27/2020) Performed for 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) * C-REACTIVE PROTEIN(Performed 06/29/2020) Performed for 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) * ERYTHROCYTE SEDIMENTATION RATE(Performed 06/29/2020) Performed for 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) * COMPREHENSIVE METABOLIC PANEL(Performed 06/29/2020) Performed for 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) * CBC W AUTO DIFFERENTIAL(Performed 06/29/2020) Performed for 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) * XR HAND RIGHT 3VW OR MORE(Performed 05/10/2020) Performed for Hand pain, right * COMPREHENSIVE METABOLIC PANEL(Performed 05/04/2020) Performed for 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) * CBC W AUTO DIFFERENTIAL(Performed 05/04/2020) Performed for 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) * XR SI JOINTS 3VW OR MORE(Performed 02/06/2020) Performed for 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) * HLA TYPING B27(Performed 02/06/2020) Performed for 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) * C-REACTIVE PROTEIN(Performed 02/06/2020) Performed for 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) * ERYTHROCYTE SEDIMENTATION RATE(Performed 02/06/2020) Performed for 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) * COMPREHENSIVE METABOLIC PANEL(Performed 02/06/2020) Performed for 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) * CBC W AUTO DIFFERENTIAL(Performed 02/06/2020) Performed for 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) * BASIC METABOLIC PANEL (CALCIUM TOTAL)(Performed 09/26/2019) Performed for 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) * COMPREHENSIVE METABOLIC PANEL(Performed 08/29/2019) Performed for 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) * CBC W AUTO DIFFERENTIAL(Performed 08/29/2019) Performed for 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) * DEXA BONE DENSITY 2 SITES(Performed 07/09/2019) * XR CERVICAL SPINE 2 OR 3VW(Performed 04/18/2019) Performed for Osteoporosis, unspecified osteoporosis type, unspecified pathological fracture presence, 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) * C-REACTIVE PROTEIN(Performed 03/06/2019) Performed for 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) * ERYTHROCYTE SEDIMENTATION RATE(Performed 03/06/2019) Performed for 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) * COMPREHENSIVE METABOLIC PANEL(Performed 03/06/2019) Performed for 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) * CBC W AUTO DIFFERENTIAL(Performed 03/06/2019) Performed for 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) * PAIN MANAGEMENT PROCEDURE TIME(Performed 10/28/2018) Performed for Radiculopathy of lumbar region, Low back pain, unspecified back pain laterality, unspecified chronicity, with sciatica presence unspecified, Other chronic pain * ERYTHROCYTE SEDIMENTATION RATE(Performed 10/24/2018) * COMPREHENSIVE METABOLIC PANEL(Performed 10/24/2018) * CBC W AUTO DIFFERENTIAL(Performed 10/24/2018) Performed for Encounter for long-term (current) use of medications * PAIN MANAGEMENT PROCEDURE TIME(Performed 10/07/2018) Performed for Radiculopathy of lumbar region, Radiculopathy of lumbosacral region * ERYTHROCYTE SEDIMENTATION RATE(Performed 07/11/2018) Performed for 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) * COMPREHENSIVE METABOLIC PANEL(Performed 07/11/2018) Performed for 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) * CBC W AUTO DIFFERENTIAL(Performed 07/11/2018) Performed for 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) * ERYTHROCYTE SEDIMENTATION RATE(Performed 03/07/2018) Performed for Encounter for long-term (current) use of medications * COMPREHENSIVE METABOLIC PANEL(Performed 03/07/2018) Performed for Encounter for long-term (current) use of medications * CBC W AUTO DIFFERENTIAL(Performed 03/07/2018) Performed for Encounter for long-term (current) use of medications * LIPID PROFILE W TCHOL/HDL(Performed 12/19/2017) Performed for Encounter for long-term (current) use of medications * ERYTHROCYTE SEDIMENTATION RATE(Performed 12/19/2017) Performed for Encounter for long-term (current) use of medications * COMPREHENSIVE METABOLIC PANEL(Performed 12/19/2017) Performed for Encounter for long-term (current) use of medications * CBC W AUTO DIFFERENTIAL(Performed 12/19/2017) Performed for Encounter for long-term (current) use of medications * ERYTHROCYTE SEDIMENTATION RATE(Performed 10/24/2017) Performed for 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) * COMPREHENSIVE METABOLIC PANEL(Performed 10/24/2017) Performed for 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) * CBC W AUTO DIFFERENTIAL(Performed 10/24/2017) Performed for 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) * LIPID PROFILE W TCHOL/HDL(Performed 09/03/2017) Performed for Encounter for long-term (current) use of medications * ERYTHROCYTE SEDIMENTATION RATE(Performed 08/01/2017) * COMPREHENSIVE METABOLIC PANEL(Performed 08/01/2017) * CBC W AUTO DIFFERENTIAL(Performed 08/01/2017) * ERYTHROCYTE SEDIMENTATION RATE(Performed 08/01/2017) Performed for Rheumatoid arthritis involving multiple sites, unspecified rheumatoid factor presence * COMPREHENSIVE METABOLIC PANEL(Performed 08/01/2017) Performed for Rheumatoid arthritis involving multiple sites, unspecified rheumatoid factor presence * CBC W AUTO DIFFERENTIAL(Performed 08/01/2017) Performed for Rheumatoid arthritis involving multiple sites, unspecified rheumatoid factor presence * VASCULAR LAB ORDER(Performed 05/02/2017) * ERYTHROCYTE SEDIMENTATION RATE(Performed 04/05/2017) Performed for Rheumatoid arthritis involving multiple sites, unspecified rheumatoid factor presence * COMPREHENSIVE METABOLIC PANEL(Performed 04/05/2017) Performed for Rheumatoid arthritis involving multiple sites, unspecified rheumatoid factor presence * CBC W AUTO DIFFERENTIAL(Performed 04/05/2017) Performed for Rheumatoid arthritis involving multiple sites, unspecified rheumatoid factor presence * XR ANKLE BILAT 2VW(Performed 03/08/2017) Performed for Chronic pain syndrome * PAIN MANAGEMENT PROCEDURE TIME(Performed 03/01/2017) Performed for Intervertebral disc disorder with radiculopathy of lumbosacral region, Low back pain,unspecified back pain laterality, unspecified chronicity, with sciatica presence unspecified * PAIN MANAGEMENT PROCEDURE TIME(Performed 02/22/2017) Performed for Low back pain, unspecified back pain laterality, unspecified chronicity, with sciatica presence unspecified * IMAGING/RADIOLOGY/XRAY RESULTS ORDER(Performed 02/17/2017) * LIPID PROFILE W TCHOL/HDL(Performed 02/02/2017) Performed for Encounter for long-term (current) use of medications * ERYTHROCYTE SEDIMENTATION RATE(Performed 02/02/2017) Performed for Encounter for long-term (current) use of medications * COMPREHENSIVE METABOLIC PANEL(Performed 02/02/2017) Performed for Encounter for long-term (current) use of medications * CBC W AUTO DIFFERENTIAL(Performed 02/02/2017) Performed for Encounter for long-term (current) use of medications * PAIN MANAGEMENT PROCEDURE TIME(Performed 12/28/2016) Performed for Radiculopathy of lumbosacral region, Low back pain, unspecified back pain laterality,unspecified chronicity, with sciatica presence unspecified * PAIN MANAGEMENT PROCEDURE TIME(Performed 12/21/2016) Performed for Radiculopathy of lumbosacral region, Low back pain, unspecified back pain laterality,unspecified chronicity, with sciatica presence unspecified * LIPID PROFILE W TCHOL/HDL(Performed 11/23/2016) Performed for Hyperlipidemia, unspecified hyperlipidemia type * ERYTHROCYTE SEDIMENTATION RATE(Performed 11/23/2016) Performed for Rheumatoid arthritis involving multiple sites, unspecified rheumatoid factor presence * COMPREHENSIVE METABOLIC PANEL(Performed 11/23/2016) Performed for Rheumatoid arthritis involving multiple sites, unspecified rheumatoid factor presence * CBC W AUTO DIFFERENTIAL(Performed 11/23/2016) Performed for Rheumatoid arthritis involving multiple sites, unspecified rheumatoid factor presence * CARDIAC ECHOCARDIOGRAM COMPLETE ORDER(Performed 11/09/2016) * ERYTHROCYTE SEDIMENTATION RATE(Performed 09/21/2016) Performed for Rheumatoid arthritis involving multiple sites, unspecified rheumatoid factor presence * CBC W AUTO DIFFERENTIAL(Performed 09/21/2016) Performed for Rheumatoid arthritis involving multiple sites, unspecified rheumatoid factor presence * COMPREHENSIVE METABOLIC PANEL(Performed 09/21/2016) Performed for Rheumatoid arthritis involving multiple sites, unspecified rheumatoid factor presence * XR CHEST 2VW(Performed 09/21/2016) Performed for SOB (shortness of breath) on exertion * LIPID PROFILE(Performed 08/24/2016) Performed for Hyperlipidemia, unspecified hyperlipidemia type * ERYTHROCYTE SEDIMENTATION RATE(Performed 08/24/2016) Performed for Rheumatoid arthritis with negative rheumatoid factor, involving unspecified site (HCC) * COMPREHENSIVE METABOLIC PANEL(Performed 08/24/2016) Performed for Rheumatoid arthritis with negative rheumatoid factor, involving unspecified site (HCC) * CBC W AUTO DIFFERENTIAL(Performed 08/24/2016) Performed for Rheumatoid arthritis with negative rheumatoid factor, involving unspecified site (HCC) * ERYTHROCYTE SEDIMENTATION RATE(Performed 06/29/2016) Performed for 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) * COMPREHENSIVE METABOLIC PANEL(Performed 06/29/2016) Performed for 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) * CBC W AUTO DIFFERENTIAL(Performed 06/29/2016) Performed for 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) * PAIN MANAGEMENT PROCEDURE TIME(Performed 05/16/2016) Performed for Radiculopathy of lumbosacral region, Low back pain with sciatica, sciatica lateralityunspecified, unspecified back pain laterality, unspecified chronicity * ERYTHROCYTE SEDIMENTATION RATE(Performed 05/04/2016) Performed for 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) * LIPID PROFILE W TCHOL/HDL(Performed 05/04/2016) Performed for 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) * COMPREHENSIVE METABOLIC PANEL(Performed 05/04/2016) Performed for 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) * CBC W AUTO DIFFERENTIAL(Performed 05/04/2016) Performed for 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) * REF LAB-SPECIMEN STATUS REPORT(Performed 02/23/2016) * ERYTHROCYTE SEDIMENTATION RATE(Performed 02/23/2016) Performed for 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) * COMPREHENSIVE METABOLIC PANEL(Performed 02/23/2016) Performed for 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) * CBC W AUTO DIFFERENTIAL(Performed 02/23/2016) Performed for 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) * LIPID PROFILE W TCHOL/HDL(Performed 01/11/2016) Performed for 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) * ERYTHROCYTE SEDIMENTATION RATE(Performed 12/14/2015) Performed for 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) * COMPREHENSIVE METABOLIC PANEL(Performed 12/14/2015) Performed for 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) * CBC W AUTO DIFFERENTIAL(Performed 12/14/2015) Performed for 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) * T4 TOTAL(Performed 10/13/2015) Performed for Hypothyroidism due to acquired atrophy of thyroid * ERYTHROCYTE SEDIMENTATION RATE(Performed 10/13/2015) Performed for Encounter for long-term (current) use of medications * TSH(Performed 10/13/2015) Performed for Encounter for long-term (current) use of medications * LIPID PROFILE W TCHOL/HDL(Performed 10/13/2015) Performed for Encounter for long-term (current) use of medications * COMPREHENSIVE METABOLIC PANEL(Performed 10/13/2015) Performed for Encounter for long-term (current) use of medications * CBC W AUTO DIFFERENTIAL(Performed 10/13/2015) Performed for Encounter for long-term (current) use of medications * PAIN MANAGEMENT PROCEDURE TIME(Performed 09/07/2015) Performed for Intervertebral disc disorder with radiculopathy of lumbar region, Intervertebral discdisorder with radiculopathy of lumbosacral region, Radiculopathy of lumbosacral region * ERYTHROCYTE SEDIMENTATION RATE(Performed 08/16/2015) Performed for 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) * COMPREHENSIVE METABOLIC PANEL(Performed 08/16/2015) Performed for 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) * CBC W AUTO DIFFERENTIAL(Performed 08/16/2015) Performed for 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) * LIPID PROFILE W TCHOL/HDL(Performed 07/19/2015) Performed for 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) * LIPID PROFILE W TCHOL/HDL(Performed 06/14/2015) Performed for 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 factor ([facility]) * ERYTHROCYTE SEDIMENTATION RATE(Performed 06/14/2015) Performed for 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 factor ([facility]) * COMPREHENSIVE METABOLIC PANEL(Performed 06/14/2015) Performed for 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 factor ([facility]) * CBC W AUTO DIFFERENTIAL(Performed 06/14/2015) Performed for 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 factor ([facility]) * ERYTHROCYTE SEDIMENTATION RATE(Performed 04/07/2015) Performed for Rheumatoid arthritis of multiple 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 factor ([facility]) * C-REACTIVE PROTEIN(Performed 04/07/2015) Performed for Rheumatoid arthritis of multiple 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 factor ([facility]) * COMPREHENSIVE METABOLIC PANEL(Performed 04/07/2015) Performed for Rheumatoid arthritis of multiple 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 factor ([facility]) * CBC W AUTO DIFFERENTIAL(Performed 04/07/2015) Performed for Rheumatoid arthritis of multiple 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 factor ([facility]) * LIPID PROFILE W TCHOL/HDL(Performed 03/04/2015) Performed for Rheumatoid arthritis(714.0) ([facility]) * ERYTHROCYTE SEDIMENTATION RATE(Performed 03/04/2015) Performed for Rheumatoid arthritis(714.0) ([facility]) * COMPREHENSIVE METABOLIC PANEL(Performed 03/04/2015) Performed for Rheumatoid arthritis(714.0) ([facility]) * CBC W AUTO DIFFERENTIAL(Performed 03/04/2015) Performed for Rheumatoid arthritis(714.0) ([facility]) * ERYTHROCYTE SEDIMENTATION RATE(Performed 01/07/2015) Performed for Rheumatoid arthritis(714.0) ([facility]) * COMPREHENSIVE METABOLIC PANEL(Performed 01/07/2015) Performed for Rheumatoid arthritis(714.0) ([facility]) * CBC W AUTO DIFFERENTIAL(Performed 01/07/2015) Performed for Rheumatoid arthritis(714.0) ([facility]) * PAIN MANAGEMENT PROCEDURE TIME(Performed 12/29/2014) Performed for Displacement of lumbar intervertebral disc without myelopathy, Thoracic or lumbosacral neuritis or radiculitis, unspecified * PAIN MANAGEMENT PROCEDURE TIME(Performed 12/21/2014) Performed for Displacement of lumbar intervertebral disc without myelopathy, Thoracic or lumbosacral neuritis or radiculitis, unspecified * ERYTHROCYTE SEDIMENTATION RATE(Performed 11/05/2014) Performed for Rheumatoid arthritis(714.0) ([facility]) * COMPREHENSIVE METABOLIC PANEL(Performed 11/05/2014) Performed for Rheumatoid arthritis(714.0) ([facility]) * CBC W AUTO DIFFERENTIAL(Performed 11/05/2014) Performed for Rheumatoid arthritis(714.0) ([facility]) * RHEUMATOID FACTOR BLOOD QUANTITATIVE(Performed 08/12/2014) Performed for Rheumatoid arthritis(714.0) ([facility]) * ERYTHROCYTE SEDIMENTATION RATE(Performed 08/12/2014) Performed for Rheumatoid arthritis(714.0) ([facility]) * C-REACTIVE PROTEIN(Performed 08/12/2014) Performed for Rheumatoid arthritis(714.0) ([facility]) * COMPREHENSIVE METABOLIC PANEL(Performed 08/12/2014) Performed for Rheumatoid arthritis(714.0) ([facility]) * CYCLIC CITRUL PEPTIDE ANTIBODY IGG/IGA (CCP)(Performed 08/12/2014) Performed for Rheumatoid arthritis(714.0) ([facility]) * CBC W AUTO DIFFERENTIAL(Performed 08/12/2014) Performed for Rheumatoid arthritis(714.0) ([facility]) * KAMI STAINING PATTERNS REFLEXED(Performed 08/12/2014) Performed for Rheumatoid arthritis(714.0) ([facility]) * ROSA BLOOD SCREEN W/REFLEX TITER(Performed 08/12/2014) Performed for Rheumatoid arthritis(714.0) ([facility]) * CYCLIC CITRUL PEPTIDE ANTIBODY IGG/IGA (CCP)(Performed 08/12/2014) Performed for Rheumatoid arthritis(714.0) ([facility]) * C-REACTIVE PROTEIN(Performed 08/12/2014) Performed for Rheumatoid arthritis(714.0) ([facility]) * COMPREHENSIVE METABOLIC PANEL(Performed 08/12/2014) Performed for Rheumatoid arthritis(714.0) ([facility]) * CBC W AUTO DIFFERENTIAL(Performed 08/12/2014) Performed for Rheumatoid arthritis(714.0) ([facility]) * XR HAND BILAT 1VW(Performed 08/12/2014) Performed for Rheumatoid arthritis(714.0) ([facility]) * ERYTHROCYTE SEDIMENTATION RATE(Performed 06/08/2014) Performed for Rheumatoid Arthritis ([facility]) * COMPREHENSIVE METABOLIC PANEL(Performed 06/08/2014) Performed for Rheumatoid Arthritis ([facility]) * CBC W AUTO DIFFERENTIAL(Performed 06/08/2014) Performed for Rheumatoid Arthritis ([facility]) * CARDIAC EKG ORDER(Performed 05/22/2014) * PAIN MANAGEMENT PROCEDURE TIME(Performed 04/28/2014) Performed for Displacement Of Lumbar Intervertebral Disc Without Myelopathy, Thoracic or lumbosacral neuritis or radiculitis, unspecified * PAIN MANAGEMENT PROCEDURE TIME(Performed 04/14/2014) Performed for Displacement Of Lumbar Intervertebral Disc Without Myelopathy, Thoracic or lumbosacral neuritis or radiculitis, unspecified * PAIN MANAGEMENT PROCEDURE TIME(Performed 03/24/2014) Performed for Displacement Of Lumbar Intervertebral Disc Without Myelopathy, Thoracic or lumbosacral neuritis or radiculitis, unspecified * EMG WITH NERVE CONDUCTION STUDY(Performed 03/23/2014) * PAIN MANAGEMENT PROCEDURE TIME(Performed 03/17/2014) Performed for Displacement Of Lumbar Intervertebral Disc Without Myelopathy, Thoracic or lumbosacral neuritis or radiculitis, unspecified * ERYTHROCYTE SEDIMENTATION RATE(Performed 03/12/2014) Performed for Rheumatoid Arthritis ([facility]) * COMPREHENSIVE METABOLIC PANEL(Performed 03/12/2014) Performed for Rheumatoid Arthritis ([facility]) * CBC W AUTO DIFFERENTIAL(Performed 03/12/2014) Performed for Rheumatoid Arthritis ([facility]) * PAIN MANAGEMENT PROCEDURE TIME(Performed 03/10/2014) Performed for Displacement Of Lumbar Intervertebral Disc Without Myelopathy, Thoracic or lumbosacral neuritis or radiculitis, unspecified * XR CERVICAL SPINE 2 OR 3VW(Performed 02/25/2014) Performed for Rheumatoid Arthritis ([facility]) * COMPREHENSIVE METABOLIC PANEL(Performed 01/14/2014) Performed for Rheumatoid Arthritis ([facility]) * ERYTHROCYTE SEDIMENTATION RATE(Performed 01/14/2014) Performed for Rheumatoid Arthritis ([facility]) * CBC W AUTO DIFFERENTIAL(Performed 01/14/2014) Performed for Rheumatoid Arthritis ([facility]) * XR LUMBAR SPINE 2 OR 3VW(Performed 01/06/2014) Performed for Lumbar radiculopathy * MRI LUMBAR SPINE WO CONTRAST(Performed 01/02/2014) Performed for Lumbar radiculopathy * IMAGING/RADIOLOGY/XRAY RESULTS ORDER(Performed 01/02/2014) * LIPID PROFILE W TCHOL/HDL(Performed 12/12/2013) Performed for Other And Unspecified Hyperlipidemia * COMPREHENSIVE METABOLIC PANEL(Performed 11/12/2013) Performed for Rheumatoid Arthritis ([facility]) * ERYTHROCYTE SEDIMENTATION RATE(Performed 11/12/2013) Performed for Rheumatoid Arthritis ([facility]) * CBC W AUTO DIFFERENTIAL(Performed 11/12/2013) Performed for Rheumatoid Arthritis ([facility]) * ERYTHROCYTE SEDIMENTATION RATE(Performed 09/04/2013) Performed for Rheumatoid Arthritis ([facility]) * COMPREHENSIVE METABOLIC PANEL(Performed 09/04/2013) Performed for Rheumatoid Arthritis ([facility]) * CBC W AUTO DIFFERENTIAL(Performed 09/04/2013) Performed for Rheumatoid Arthritis (Hcc) * ERYTHROCYTE SEDIMENTATION RATE(Performed 07/09/2013) Performed for Rheumatoid Arthritis (Hcc) * COMPREHENSIVE METABOLIC PANEL(Performed 07/09/2013) Performed for Rheumatoid Arthritis (Hcc) * CBC W AUTO DIFFERENTIAL(Performed 07/09/2013) Performed for Rheumatoid Arthritis (Hcc) * LIPID PROFILE(Performed 07/09/2013) Performed for Other And Unspecified Hyperlipidemia * ERYTHROCYTE SEDIMENTATION RATE(Performed 06/10/2013) Performed for Rheumatoid Arthritis (Hcc) * COMPREHENSIVE METABOLIC PANEL(Performed 06/10/2013) Performed for Rheumatoid Arthritis (Hcc) * CBC W AUTO DIFFERENTIAL(Performed 06/10/2013) Performed for Rheumatoid Arthritis (Hcc) * LAB RESULTS ORDER(Performed 05/13/2013) * ERYTHROCYTE SEDIMENTATION RATE(Performed 04/11/2013) Performed for Rheumatoid Arthritis (Hcc) * COMPREHENSIVE METABOLIC PANEL(Performed 04/11/2013) Performed for Rheumatoid Arthritis ([facility]) * CBC W AUTO DIFFERENTIAL(Performed 04/11/2013) Performed for Rheumatoid Arthritis ([facility]) * CT CHEST ABDOMEN PELVIS W CONT(Performed 03/25/2013) Performed for Pleurisy, Abdominal pain * XR CHEST 2VW(Performed 03/24/2013) Performed for Pleurisy * URINALYSIS AUTO - POINT OF CARE(Performed 03/24/2013) Performed for Rheumatoid Arthritis ([facility]) * ERYTHROCYTE SEDIMENTATION RATE(Performed 03/21/2013) Performed for Rheumatoid Arthritis ([facility]) * C-REACTIVE PROTEIN(Performed 03/21/2013) Performed for Rheumatoid Arthritis ([facility]) * COMPREHENSIVE METABOLIC PANEL(Performed 03/21/2013) Performed for Rheumatoid Arthritis ([facility]) * CBC W AUTO DIFFERENTIAL(Performed 03/21/2013) Performed for Rheumatoid Arthritis ([facility]) * KAMI STAINING PATTERNS REFLEXED(Performed 02/10/2013) Performed for Rheumatoid Arthritis ([facility]) * CYCLIC CITRUL PEPTIDE ANTIBODY IGG/IGA (CCP)(Performed 02/10/2013) Performed for Rheumatoid Arthritis ([facility]) * RHEUMATOID FACTOR BLOOD QUANTITATIVE(Performed 02/10/2013) Performed for Rheumatoid Arthritis ([facility]) * ROSA BLOOD SCREEN W/REFLEX TITER(Performed 02/10/2013) Performed for Rheumatoid Arthritis ([facility]) * ERYTHROCYTE SEDIMENTATION RATE(Performed 02/10/2013) Performed for Rheumatoid Arthritis ([facility]) * C-REACTIVE PROTEIN(Performed 02/10/2013) Performed for Rheumatoid Arthritis ([facility]) * COMPREHENSIVE METABOLIC PANEL(Performed 02/10/2013) Performed for Rheumatoid Arthritis (Hcc) * CBC W AUTO DIFFERENTIAL(Performed 02/10/2013) Performed for Rheumatoid Arthritis (Hcc) * ERYTHROCYTE SEDIMENTATION RATE(Performed 12/09/2012) Performed for Rheumatoid arthritis (HCC) * C-REACTIVE PROTEIN(Performed 12/09/2012) Performed for Rheumatoid arthritis (HCC) * COMPREHENSIVE METABOLIC PANEL(Performed 12/09/2012) Performed for Rheumatoid arthritis (HCC) * CBC W AUTO DIFFERENTIAL(Performed 12/09/2012) Performed for Rheumatoid arthritis (HCC) * IMAGING/RADIOLOGY/XRAY RESULTS ORDER(Performed 10/27/2012) * ERYTHROCYTE SEDIMENTATION RATE(Performed 10/14/2012) Performed for Rheumatoid arthritis (HCC) * C-REACTIVE PROTEIN(Performed 10/14/2012) Performed for Rheumatoid arthritis (HCC) * COMPREHENSIVE METABOLIC PANEL(Performed 10/14/2012) Performed for Rheumatoid arthritis (HCC) * CBC W AUTO DIFFERENTIAL(Performed 10/14/2012) Performed for Rheumatoid arthritis (HCC) * XR CHEST 2VW(Performed 09/10/2012) Performed for Rheumatoid arthritis (HCC) * ERYTHROCYTE SEDIMENTATION RATE(Performed 09/02/2012) Performed for Rheumatoid arthritis (HCC) * COMPREHENSIVE METABOLIC PANEL(Performed 09/02/2012) Performed for Rheumatoid arthritis ([facility]) * CBC W AUTO DIFFERENTIAL(Performed 09/02/2012) Performed for Rheumatoid arthritis ([facility]) * QUANTIFERON IN TUBE REFLEXED(Performed 07/22/2012) Performed for Screening examination for pulmonary tuberculosis * QUANTIFERON TB-GOLD(Performed 07/22/2012) Performed for Screening examination for pulmonary tuberculosis * ERYTHROCYTE SEDIMENTATION RATE(Performed 07/22/2012) Performed for Rheumatoid arthritis (HCC) * C-REACTIVE PROTEIN(Performed 07/22/2012) Performed for Rheumatoid arthritis (HCC) * COMPREHENSIVE METABOLIC PANEL(Performed 07/22/2012) Performed for Rheumatoid arthritis (HCC) * CBC W AUTO DIFFERENTIAL(Performed 07/22/2012) Performed for Rheumatoid arthritis (HCC) * IMAGING/RADIOLOGY/XRAY RESULTS ORDER(Performed 07/12/2012) * ERYTHROCYTE SEDIMENTATION RATE(Performed 06/24/2012) Performed for Rheumatoid arthritis (HCC) * C-REACTIVE PROTEIN(Performed 06/24/2012) Performed for Rheumatoid arthritis (HCC) * COMPREHENSIVE METABOLIC PANEL(Performed 06/24/2012) Performed for Rheumatoid arthritis ([facility]) * CBC W AUTO DIFFERENTIAL(Performed 06/24/2012) Performed for Rheumatoid arthritis (HCC) * ERYTHROCYTE SEDIMENTATION RATE(Performed 05/27/2012) Performed for Rheumatoid arthritis (HCC) * C-REACTIVE PROTEIN(Performed 05/27/2012) Performed for Rheumatoid arthritis (HCC) * COMPREHENSIVE METABOLIC PANEL(Performed 05/27/2012) Performed for Rheumatoid arthritis (HCC) * CBC W AUTO DIFFERENTIAL(Performed 05/27/2012) Performed for Rheumatoid arthritis (HCC) * ERYTHROCYTE SEDIMENTATION RATE(Performed 04/08/2012) Performed for Rheumatoid arthritis (HCC) * C-REACTIVE PROTEIN(Performed 04/08/2012) Performed for Rheumatoid arthritis (HCC) * COMPREHENSIVE METABOLIC PANEL(Performed 04/08/2012) Performed for Rheumatoid arthritis (HCC) * CBC W AUTO DIFFERENTIAL(Performed 04/08/2012) Performed for Rheumatoid arthritis (HCC) * ERYTHROCYTE SEDIMENTATION RATE(Performed 03/11/2012) Performed for Rheumatoid arthritis (HCC) * C-REACTIVE PROTEIN(Performed 03/11/2012) Performed for Rheumatoid arthritis (HCC) * COMPREHENSIVE METABOLIC PANEL(Performed 03/11/2012) Performed for Rheumatoid arthritis (HCC) * CBC W AUTO DIFFERENTIAL(Performed 03/11/2012) Performed for Rheumatoid arthritis (HCC) * ERYTHROCYTE SEDIMENTATION RATE(Performed 02/13/2012) Performed for Rheumatoid arthritis (HCC) * C-REACTIVE PROTEIN(Performed 02/13/2012) Performed for Rheumatoid arthritis (HCC) * COMPREHENSIVE METABOLIC PANEL(Performed 02/13/2012) Performed for Rheumatoid arthritis (HCC) * CBC W AUTO DIFFERENTIAL(Performed 02/13/2012) Performed for Rheumatoid arthritis (HCC) * ERYTHROCYTE SEDIMENTATION RATE(Performed 12/11/2011) Performed for Rheumatoid arthritis (HCC) * C-REACTIVE PROTEIN(Performed 12/11/2011) Performed for Rheumatoid arthritis (HCC) * COMPREHENSIVE METABOLIC PANEL(Performed 12/11/2011) Performed for Rheumatoid arthritis (HCC) * CBC W AUTO DIFFERENTIAL(Performed 12/11/2011) Performed for Rheumatoid arthritis (HCC) * CBC W AUTO DIFFERENTIAL(Performed 11/06/2011) Performed for Rheumatoid arthritis (HCC) * C-REACTIVE PROTEIN(Performed 11/06/2011) Performed for Rheumatoid arthritis (HCC) * COMPREHENSIVE METABOLIC PANEL(Performed 11/06/2011) Performed for Rheumatoid arthritis (HCC) * ERYTHROCYTE SEDIMENTATION RATE(Performed 11/06/2011) Performed for Rheumatoid arthritis (HCC) * ERYTHROCYTE SEDIMENTATION RATE(Performed 10/09/2011) Performed for Rheumatoid arthritis (HCC) * C-REACTIVE PROTEIN(Performed 10/09/2011) Performed for Rheumatoid arthritis ([facility]) * COMPREHENSIVE METABOLIC PANEL(Performed 10/09/2011) Performed for Rheumatoid arthritis ([facility]) * CBC W AUTO DIFFERENTIAL(Performed 10/09/2011) Performed for Rheumatoid arthritis ([facility]) * ERYTHROCYTE SEDIMENTATION RATE(Performed 09/04/2011) Performed for Rheumatoid arthritis ([facility]) * C-REACTIVE PROTEIN(Performed 09/04/2011) Performed for Rheumatoid arthritis ([facility]) * COMPREHENSIVE METABOLIC PANEL(Performed 09/04/2011) Performed for Rheumatoid arthritis ([facility]) * CBC W AUTO DIFFERENTIAL(Performed 09/04/2011) Performed for Rheumatoid arthritis ([facility]) * C-REACTIVE PROTEIN(Performed 05/15/2011) Performed for Rheumatoid arthritis ([facility]) * LIPID PROFILE W LDL/HDL RATIO(Performed 05/15/2011) Performed for Hyperlipidemia * ERYTHROCYTE SEDIMENTATION RATE(Performed 05/15/2011) Performed for Rheumatoid arthritis ([facility]) * COMPREHENSIVE METABOLIC PANEL(Performed 05/15/2011) Performed for Rheumatoid arthritis ([facility]) * CBC W AUTO DIFFERENTIAL(Performed 05/15/2011) Performed for Rheumatoid arthritis ([facility]) * ERYTHROCYTE SEDIMENTATION RATE(Performed 04/17/2011) Performed for Rheumatoid arthritis ([facility]) * C-REACTIVE PROTEIN(Performed 04/17/2011) Performed for Rheumatoid arthritis ([facility]) * COMPREHENSIVE METABOLIC PANEL(Performed 04/17/2011) Performed for Rheumatoid arthritis ([facility]) * CBC W AUTO DIFFERENTIAL(Performed 04/17/2011) Performed for Rheumatoid arthritis ([facility]) * ERYTHROCYTE SEDIMENTATION RATE(Performed 03/20/2011) Performed for Rheumatoid arthritis ([facility]) * C-REACTIVE PROTEIN(Performed 03/20/2011) Performed for Rheumatoid arthritis ([facility]) * COMPREHENSIVE METABOLIC PANEL(Performed 03/20/2011) Performed for Rheumatoid arthritis ([facility]) * CBC W AUTO DIFFERENTIAL(Performed 03/20/2011) Performed for Rheumatoid arthritis ([facility]) * CYCLIC CITRUL PEPTIDE ANTIBODY IGG/IGA (CCP)(Performed 02/13/2011) Performed for Rheumatoid arthritis ([facility]) * RHEUMATOID FACTOR BLOOD QUANTITATIVE(Performed 02/13/2011) Performed for Rheumatoid arthritis ([facility]) * ERYTHROCYTE SEDIMENTATION RATE(Performed 02/13/2011) Performed for Rheumatoid arthritis ([facility]) * C-REACTIVE PROTEIN(Performed 02/13/2011) Performed for Rheumatoid arthritis ([facility]) * COMPREHENSIVE METABOLIC PANEL(Performed 02/13/2011) Performed for Rheumatoid arthritis ([facility]) * CBC W AUTO DIFFERENTIAL(Performed 02/13/2011) Performed for Rheumatoid arthritis (HCC) * ERYTHROCYTE SEDIMENTATION RATE(Performed 01/16/2011) Performed for Rheumatoid arthritis (HCC) * COMPREHENSIVE METABOLIC PANEL(Performed 01/16/2011) Performed for Rheumatoid arthritis (HCC) * C-REACTIVE PROTEIN(Performed 01/16/2011) Performed for Rheumatoid arthritis (HCC) * CBC W AUTO DIFFERENTIAL(Performed 01/16/2011) Performed for Rheumatoid arthritis (HCC) * ERYTHROCYTE SEDIMENTATION RATE(Performed 12/12/2010) Performed for Rheumatoid arthritis (HCC) * C-REACTIVE PROTEIN(Performed 12/12/2010) Performed for Rheumatoid arthritis (HCC) * CBC W AUTO DIFFERENTIAL(Performed 12/12/2010) Performed for Rheumatoid arthritis (HCC) * COMPREHENSIVE METABOLIC PANEL(Performed 12/12/2010) Performed for Rheumatoid arthritis (HCC) * ERYTHROCYTE SEDIMENTATION RATE(Performed 11/14/2010) Performed for Rheumatoid arthritis (HCC) * C-REACTIVE PROTEIN(Performed 11/14/2010) Performed for Rheumatoid arthritis (HCC) * COMPREHENSIVE METABOLIC PANEL(Performed 11/14/2010) Performed for Rheumatoid arthritis (HCC) * CBC W AUTO DIFFERENTIAL(Performed 11/14/2010) Performed for Rheumatoid arthritis (HCC) * ERYTHROCYTE SEDIMENTATION RATE(Performed 10/03/2010) Performed for Rheumatoid arthritis (HCC), Triceps tendonitis * C-REACTIVE PROTEIN(Performed 10/03/2010) Performed for Rheumatoid arthritis (HCC), Triceps tendonitis * COMPREHENSIVE METABOLIC PANEL(Performed 10/03/2010) Performed for Rheumatoid arthritis (HCC), Triceps tendonitis * CBC W AUTO DIFFERENTIAL(Performed 10/03/2010) Performed for Rheumatoid arthritis (HCC), Triceps tendonitis * ERYTHROCYTE SEDIMENTATION RATE(Performed 08/29/2010) Performed for Rheumatoid arthritis (HCC) * C-REACTIVE PROTEIN(Performed 08/29/2010) Performed for Rheumatoid arthritis (HCC) * COMPREHENSIVE METABOLIC PANEL(Performed 08/29/2010) Performed for Rheumatoid arthritis (HCC) * CBC W AUTO DIFFERENTIAL(Performed 08/29/2010) Performed for Rheumatoid arthritis (HCC) * ERYTHROCYTE SEDIMENTATION RATE(Performed 07/25/2010) Performed for Rheumatoid arthritis (HCC) * C-REACTIVE PROTEIN(Performed 07/25/2010) Performed for Rheumatoid arthritis (HCC) * COMPREHENSIVE METABOLIC PANEL(Performed 07/25/2010) Performed for Rheumatoid arthritis (HCC) * CBC W AUTO DIFFERENTIAL(Performed 07/25/2010) Performed for Rheumatoid arthritis (HCC) * ERYTHROCYTE SEDIMENTATION RATE(Performed 06/27/2010) Performed for Rheumatoid arthritis ([facility]) * CBC W AUTO DIFFERENTIAL(Performed 06/27/2010) Performed for Rheumatoid arthritis ([facility]) * C-REACTIVE PROTEIN(Performed 06/27/2010) Performed for Rheumatoid arthritis ([facility]) * COMPREHENSIVE METABOLIC PANEL(Performed 06/27/2010) Performed for Rheumatoid arthritis ([facility]) * ERYTHROCYTE SEDIMENTATION RATE(Performed 05/26/2010) Performed for Rheumatoid arthritis ([facility]) * C-REACTIVE PROTEIN(Performed 05/26/2010) Performed for Rheumatoid arthritis ([facility]) * COMPREHENSIVE METABOLIC PANEL(Performed 05/26/2010) Performed for Rheumatoid arthritis ([facility]) * CBC W AUTO DIFFERENTIAL(Performed 05/26/2010) Performed for Rheumatoid arthritis ([facility]) * ERYTHROCYTE SEDIMENTATION RATE(Performed 04/18/2010) Performed for Rheumatoid arthritis ([facility]) * C-REACTIVE PROTEIN(Performed 04/18/2010) Performed for Rheumatoid arthritis ([facility]) * COMPREHENSIVE METABOLIC PANEL(Performed 04/18/2010) Performed for Rheumatoid arthritis ([facility]) * CBC W AUTO DIFFERENTIAL(Performed 04/18/2010) Performed for Rheumatoid arthritis ([facility]) * ERYTHROCYTE SEDIMENTATION RATE(Performed 01/10/2010) Performed for Rheumatoid Arthritis ([facility]) * C-REACTIVE PROTEIN(Performed 01/10/2010) Performed for Rheumatoid Arthritis ([facility]) * COMPREHENSIVE METABOLIC PANEL(Performed 01/10/2010) Performed for Rheumatoid Arthritis ([facility]) * CBC W AUTO DIFFERENTIAL(Performed 01/10/2010) Performed for Rheumatoid Arthritis ([facility]) * ERYTHROCYTE SEDIMENTATION RATE(Performed 12/13/2009) Performed for Rheumatoid Arthritis ([facility]) * RHEUMATOID FACTOR BLOOD QUANTITATIVE(Performed 12/13/2009) Performed for Rheumatoid Arthritis ([facility]) * CYCLIC CITRUL PEPTIDE ANTIBODY IGG/IGA (CCP)(Performed 12/13/2009) Performed for Rheumatoid Arthritis ([facility]) * C-REACTIVE PROTEIN(Performed 12/13/2009) Performed for Rheumatoid Arthritis ([facility]) * COMPREHENSIVE METABOLIC PANEL(Performed 12/13/2009) Performed for Rheumatoid Arthritis ([facility]) * CBC W AUTO DIFFERENTIAL(Performed 12/13/2009) Performed for Rheumatoid Arthritis ([facility]) * CBC W AUTO DIFFERENTIAL(Performed 11/08/2009) * ERYTHROCYTE SEDIMENTATION RATE(Performed 11/08/2009) Performed for Rheumatoid Arthritis ([facility]) * CYCLIC CITRUL PEPTIDE ANTIBODY IGG/IGA (CCP)(Performed 11/08/2009) Performed for Rheumatoid Arthritis ([facility]) * C-REACTIVE PROTEIN(Performed 11/08/2009) Performed for Rheumatoid Arthritis ([facility]) * COMPREHENSIVE METABOLIC PANEL(Performed 11/08/2009) Performed for Rheumatoid Arthritis ([facility]) * ERYTHROCYTE SEDIMENTATION RATE(Performed 10/04/2009) Performed for Rheumatoid Arthritis ([facility]) * COMPREHENSIVE METABOLIC PANEL(Performed 10/04/2009) Performed for Rheumatoid Arthritis ([facility]) * C-REACTIVE PROTEIN(Performed 10/04/2009) Performed for Rheumatoid Arthritis ([facility]) * CBC W AUTO DIFFERENTIAL(Performed 10/04/2009) Performed for Rheumatoid Arthritis ([facility]) * ROSA BLOOD SCREEN W/REFLEX TITER(Performed 08/30/2009) * COMPREHENSIVE METABOLIC PANEL(Performed 08/30/2009) * CBC W AUTO DIFFERENTIAL(Performed 08/30/2009) * ERYTHROCYTE SEDIMENTATION RATE(Performed 08/30/2009) Performed for Rheumatoid Arthritis ([facility]) * RHEUMATOID FACTOR BLOOD QUANTITATIVE(Performed 08/30/2009) Performed for Rheumatoid Arthritis ([facility]) * CYCLIC CITRUL PEPTIDE ANTIBODY IGG/IGA (CCP)(Performed 08/30/2009) Performed for Rheumatoid Arthritis ([facility]) * C-REACTIVE PROTEIN(Performed 08/30/2009) Performed for Rheumatoid Arthritis ([facility]) * C-REACTIVE PROTEIN(Performed 08/02/2009) * COMPREHENSIVE METABOLIC PANEL(Performed 08/02/2009) * CBC W AUTO DIFFERENTIAL(Performed 08/02/2009) * ERYTHROCYTE SEDIMENTATION RATE(Performed 08/02/2009) Performed for Rheumatoid Arthritis ([facility]) * ERYTHROCYTE SEDIMENTATION RATE(Performed 07/05/2009) * C-REACTIVE PROTEIN(Performed 07/05/2009) Performed for Rheumatoid Arthritis ([facility]) * COMPREHENSIVE METABOLIC PANEL(Performed 07/05/2009) Performed for Rheumatoid Arthritis ([facility]) * CBC W AUTO DIFFERENTIAL(Performed 07/05/2009) Performed for Rheumatoid Arthritis ([facility]) * C-REACTIVE PROTEIN(Performed 06/07/2009) * ERYTHROCYTE SEDIMENTATION RATE(Performed 06/07/2009) * COMPREHENSIVE METABOLIC PANEL(Performed 06/07/2009) Performed for Rheumatoid Arthritis ([facility]) * CBC W AUTO DIFFERENTIAL(Performed 06/07/2009) Performed for Rheumatoid Arthritis ([facility]) * ERYTHROCYTE SEDIMENTATION RATE(Performed 05/05/2009) Performed for Rheumatoid Arthritis ([facility]) * COMPREHENSIVE METABOLIC PANEL(Performed 05/05/2009) Performed for Rheumatoid Arthritis ([facility]) * C-REACTIVE PROTEIN(Performed 05/05/2009) Performed for Rheumatoid Arthritis ([facility]) * CBC W AUTO DIFFERENTIAL(Performed 05/05/2009) Performed for Rheumatoid Arthritis ([facility]) * RHEUMATOID FACTOR BLOOD QUANTITATIVE(Performed 04/05/2009) Performed for Rheumatoid Arthritis ([facility]) * C-REACTIVE PROTEIN(Performed 04/05/2009) Performed for Rheumatoid Arthritis ([facility]) * COMPREHENSIVE METABOLIC PANEL(Performed 04/05/2009) Performed for Rheumatoid Arthritis ([facility]) * CBC W AUTO DIFFERENTIAL(Performed 04/05/2009) Performed for Rheumatoid Arthritis ([facility]) * COMPREHENSIVE METABOLIC PANEL(Performed 03/08/2009) * CBC W AUTO DIFFERENTIAL(Performed 03/08/2009) * ERYTHROCYTE SEDIMENTATION RATE(Performed 03/08/2009) Performed for Rheumatoid Arthritis ([facility]) * C-REACTIVE PROTEIN(Performed 03/08/2009) Performed for Rheumatoid Arthritis ([facility]) * C-REACTIVE PROTEIN(Performed 02/08/2009) * COMPREHENSIVE METABOLIC PANEL(Performed 02/08/2009) * CBC W AUTO DIFFERENTIAL(Performed 02/08/2009) * ERYTHROCYTE SEDIMENTATION RATE(Performed 02/08/2009) Performed for Rheumatoid Arthritis ([facility]) * COMPREHENSIVE METABOLIC PANEL(Performed 01/11/2009) * ERYTHROCYTE SEDIMENTATION RATE(Performed 01/11/2009) Performed for Rheumatoid Arthritis ([facility]) * C-REACTIVE PROTEIN(Performed 01/11/2009) Performed for Rheumatoid Arthritis ([facility]) * CBC W AUTO DIFFERENTIAL(Performed 01/11/2009) Performed for Rheumatoid Arthritis ([facility]) * ERYTHROCYTE SEDIMENTATION RATE(Performed 12/14/2008) Performed for Rheumatoid Arthritis ([facility]) * C-REACTIVE PROTEIN(Performed 12/14/2008) Performed for Rheumatoid Arthritis ([facility]) * COMPREHENSIVE METABOLIC PANEL(Performed 12/14/2008) Performed for Rheumatoid Arthritis ([facility]) * CBC W AUTO DIFFERENTIAL(Performed 12/14/2008) Performed for Rheumatoid Arthritis ([facility]) * C-REACTIVE PROTEIN(Performed 11/16/2008) * ERYTHROCYTE SEDIMENTATION RATE(Performed 11/16/2008) * COMPREHENSIVE METABOLIC PANEL(Performed 11/16/2008) Performed for Rheumatoid Arthritis ([facility]) * CBC W AUTO DIFFERENTIAL(Performed 11/16/2008) Performed for Rheumatoid Arthritis ([facility]) * RHEUMATOID FACTOR BLOOD QUANTITATIVE(Performed 10/12/2008) * ERYTHROCYTE SEDIMENTATION RATE(Performed 10/12/2008) Performed for Rheumatoid Arthritis ([facility]) * C-REACTIVE PROTEIN(Performed 10/12/2008) Performed for Rheumatoid Arthritis ([facility]) * COMPREHENSIVE METABOLIC PANEL(Performed 10/12/2008) Performed for Rheumatoid Arthritis ([facility]) * IMAGING/RADIOLOGY/XRAY RESULTS ORDER(Performed 08/28/2008) * CYCLIC CITRULLINATED PEPTIDE(CCP) AB IGG(Performed 08/24/2008) * RHEUMATOID FACTOR BLOOD QUANTITATIVE(Performed 08/24/2008) * HEMOGLOBIN A1C(Performed 08/24/2008) Performed for Rheumatoid Arthritis ([facility]) * TSH(Performed 08/24/2008) Performed for Rheumatoid Arthritis ([facility]) * URIC ACID BLOOD(Performed 08/24/2008) Performed for Rheumatoid Arthritis ([facility]) * T4 TOTAL(Performed 08/24/2008) Performed for Rheumatoid Arthritis ([facility]) * ERYTHROCYTE SEDIMENTATION RATE(Performed 08/24/2008) Performed for Rheumatoid Arthritis ([facility]) * C-REACTIVE PROTEIN(Performed 08/24/2008) Performed for Rheumatoid Arthritis ([facility]) * COMPREHENSIVE METABOLIC PANEL(Performed 08/24/2008) Performed for Rheumatoid Arthritis ([facility]) * CBC W AUTO DIFFERENTIAL(Performed 08/24/2008) Performed for Rheumatoid Arthritis ([facility]) * ERYTHROCYTE SEDIMENTATION RATE(Performed 07/27/2008) Performed for Rheumatoid Arthritis ([facility]) * C-REACTIVE PROTEIN(Performed 07/27/2008) Performed for Rheumatoid Arthritis ([facility]) * COMPREHENSIVE METABOLIC PANEL(Performed 07/27/2008) Performed for Rheumatoid Arthritis ([facility]) * CBC W AUTO DIFFERENTIAL(Performed 07/27/2008) Performed for Rheumatoid Arthritis ([facility]) * C-REACTIVE PROTEIN(Performed 06/22/2008) * ERYTHROCYTE SEDIMENTATION RATE(Performed 06/22/2008) * COMPREHENSIVE METABOLIC PANEL(Performed 06/22/2008) * CBC W AUTO DIFFERENTIAL(Performed 06/22/2008) * C-REACTIVE PROTEIN(Performed 05/18/2008) * ERYTHROCYTE SEDIMENTATION RATE(Performed 05/18/2008) * RHEUMATOID FACTOR BLOOD QUANTITATIVE(Performed 05/18/2008) * COMPREHENSIVE METABOLIC PANEL(Performed 05/18/2008) * CBC W AUTO DIFFERENTIAL(Performed 05/18/2008) * C-REACTIVE PROTEIN(Performed 04/20/2008) * ERYTHROCYTE SEDIMENTATION RATE(Performed 04/20/2008) * COMPREHENSIVE METABOLIC PANEL(Performed 04/20/2008) * CBC W AUTO DIFFERENTIAL(Performed 04/20/2008) * C-REACTIVE PROTEIN(Performed 03/30/2008) * ERYTHROCYTE SEDIMENTATION RATE(Performed 03/30/2008) * COMPREHENSIVE METABOLIC PANEL(Performed 03/30/2008) * CBC W AUTO DIFFERENTIAL(Performed 03/30/2008) Results * (ABNORMAL) CBC WITH DIFFERENTIAL (01/29/2024 10:37 AM CDT) Only the most recent of99 resultswithin the time period is included. WBC 12.7(H) 4.0 - 10.7 x10E9/L [facility] [...] 01/29/2024 6:08 PM CDT Performed at: ?? - [place] [id number], [place] ??[id number] Director Of Student Aid: Sanchez Wagner [facility], Phone: ??[phone] Gloria Smith MD LAB - HEMATOLOGY ORD ERABLES [facility] INSURANCE BILL [address] [place] [address] * (ABNORMAL) COMPREHENSIVE METABOLIC PANEL (01/29/2024 10:37 AM CDT) Only the most recent of100 resultswithin the time period is included. Glucose 117(H) 70 - 99 mg/dL [facility] [...] 01/29/2024 6:08 PM CDT Performed at: ?? - [place] [id number], [place] ??[id number] Director Of Student Aid: Sanchez COLMENARES, Phone: ??[phone] Gloria Smith MD LAB - CHEMISTRY MARII ARAUJO Performing Organization Address City/[facility]/ZIP Co de Phone Number [facility] INSURANCE BILL [address] [place] [address] * C-REACTIVE PROTEIN (05/29/2023 2:35 PM PACKAGE CENTER SUPERVISOR) Only the most recent of58 resultswithin the time period is included. C-Reactive Protein 0.49 <=0.50 mg/dL [facility] INSURANCE BILL Blood BLOOD SPECIMEN / Unknown 05/29/2023 2:35 PM PACKAGE CENTER SUPERVISOR 05/29/2023 Narrative Resulting Agency Comment Lab Testing performed at: [place] [address] [address] ?? [facility] [phone] Gloria Smith MD LAB - CHEMISTRY MARII ARAUJO Performing Organization Address [facility] Co de Phone Number [facility] INSURANCE BILL [address] [place] [address] * (ABNORMAL) ERYTHROCYTE SEDIMENTATION RATE (05/29/2023 2:35 PM PACKAGE CENTER SUPERVISOR) Only the most recent of87 resultswithin the time period is included. Pathologist [facility] Erythrocyte Sedimentation Rate Westergren 23(H) 0 - 20 MM/HR [facility] INSURANCE BILL Blood BLOOD SPECIMEN / Unknown 05/29/2023 2:35 PM PACKAGE CENTER SUPERVISOR 05/29/2023 Narrative Resulting Agency Comment Lab Testing performed at: [facility] [address] [address] ?? [facility] [phone] Gloria Smith MD LAB - HEMATOLOGY ORD ERABLES Performing Organization Address City/[facility]/ZIP Co de Phone Number [facility] INSURANCE BILL [address] [place] [address] * HEPATITIS SCREEN ACUTE ([facility]) (02/10/2022 9:46 AM CDT) Hepatitis A Virus Antibody IgM Non Reactive Non Reactive [facility] INSURANCE BILL Hepatitis B Virus Surface Antigen Non Reactive Non Reactive [facility] INSURANCE BILL Hepatitis B Core Virus Antibody IgM Non Reactive Non Reactive [facility] INSURANCE BILL Hepatitis C Antibody Non Reactive Non Reactive [facility] INSURANCE BILL Comment: Non Reactive - Antibodies to Hepatitis C virus (HCV) were no t detected, result does not exclude early acute HCV infection. Blood BLOOD SPECIMEN / Unknown 02/10/2022 9:46 AM CDT 02/10/2022 Narrative Resulting Agency Comment Lab Testing performed at: [facility] [address] ?? [place] [phone] Gloria Smith MD LAB - CHEMISTRY MARII ARAUJO Performing Organization Address City/[facility] Co de Phone Number [facility] INSURANCE BILL [address] [place] [address] * VITAMIN D 25-HYDROXY (02/10/2022 9:46 AM CDT) [facility] Vitamin D, 25 Hydroxy 52.1 30 - 100 ng/mL [facility] INSURANCE BILL Comment: Vitamin D Status: ?Deficiency ? <20 ? ng/mL ?Insufficiency ?? 20-30 ??ng/mL ?Sufficiency ? 30-100 ng/mL ?Toxicity ? >100 ?ng/mL Blood BLOOD SPECIMEN / Unknown 02/10/2022 9:46 AM CDT 02/10/2022 Narrative Resulting Agency Comment Lab Testing performed at: [facility] [address] ?? [place] [phone] Gloria Smith MD LAB - CHEMISTRY MARII ARAUJO [facility] INSURANCE BILL [address] [place] [address] * QUANTIFERON TB-GOLD (02/10/2022 9:44 AM CDT) Only the most recent of3 resultswithin the time period is included. [facility] QuantiFERON Incubation Incubation performed. [facility] INSURANCE BILL QuantiFERON Criteria [facility] INSURANCE BILL Comment: QuantiFERON-TB Gold Plus is a qualitative indirect test for M tuberculosis infection (including disease) and is intended for use in conjunction with risk assessment, radiography, and other medical and diagnostic evaluations. The QuantiFERON-TB Gold Plus result is determined by subtracting the Nil value from either TB antigen (Ag) value. The Mitogen tube serves as a control for the test. QuantiFERON TB1 Ag Value 0.04 IU/mL [facility] INSURANCE BILL QuantiFERON TB2 Ag Value 0.03 IU/mL [facility] INSURANCE BILL QuantiFERON Nil Value 0.04 IU/mL [facility] INSURANCE BILL QuantiFERON Mitogen Value >10.00 IU/mL [facility] INSURANCE BILL QuantiFERON-TB Gold Plus Negative Negative [facility] INSURANCE BILL Comment: No response to M tuberculosis antigens detected. Infection with M tuberculosis is unlikely, but high risk individuals should be considered for additional testing (ATS/IDSA/CDC Clinical Practice Guidelines, 2017). The reference range is an Antigen minus Nil result of <0.35 IU/mL. Chemiluminescence immunoassay methodology Blood BLOOD SPECIMEN / Unknown 02/10/2022 9:44 AM CDT 02/10/2022 Narrative Resulting Agency Comment [facility] Testing performed at: [facility] [address] [facility] ??[facility] [phone] Gloria Smith MD LAB - CHEMISTRY MARII ARAUJO [facility] INSURANCE BILL [address] [place] [address] * LAB RESULTS ORDER (12/28/2021) Only the most recent of2 resultswithin the time period is included. 12/28/2021 Narrative 12/28/2021 Ordered by an unspecified provider. Scanned Document LAB - THERAPEUTIC DR BUSH MONITORING ORDERABLES * REF LAB-ABN TEST REFUSAL (02/08/2021 4:45 PM CDT) [facility] Advance Beneficiary Notice Option 3 [facility] INSURANCE BILL Comment: One or more tests were removed at the request of the patient and may not be represented on this report. As a result, some or all of the tests originally requested may not have been performed or may be reported separately. Please contact your patient regarding any necessary follow-up. 02/08/2021 4:45 PM CDT 02/08/2021 Narrative Resulting Agency Comment Lab Testing performed at: [facility] [address] [place], [place] [address]ox [facility] ??[facility] [phone] Gloria Smith MD LAB - CHEMISTRY ORDAvelino I Do Now I Don'tDO Performing Organization Address City/[facility]/ZIP Co de Phone Number [facility] INSURANCE BILL [address] [place] [address] * (ABNORMAL) VITAMIN B12 (02/08/2021 4:45 PM CDT) [facility] Vitamin B12 1,257(H) 232 - 1,245 pg/mL [facility] INSURANCE BILL Blood BLOOD SPECIMEN / Unknown 02/08/2021 4:45 PM CDT 02/08/2021 Narrative Resulting Agency Comment Lab Testing performed at: [facility] [address] [place] [address] ??[facility] [phone] Gloria Smith MD LAB - CHEMISTRY ORDAircell HoldingsDO Performing Organization Address City/[facility]/ZIP Co de Phone Number [facility] INSURANCE BILL [address] [place] [address] * THIOPURINE METHYLTRANSFERASE (07/27/2020 3:14 PM CDT) [facility] TPMT Activity 23.1 Units/mL RBC [facility] INSURANCE BILL Comment: Reference Range: Normal: 15.1 - 26.4 Heterozygous for low TPMT variant: 6.3 - 15.0 Homozygous for low TPMT variant: <6.3 Interpretation [facility] INSURANCE BILL Comment: The above results can be interpreted as Normal for red blood cell Thiopurine Methyltransferase activity. For patients having an intrinsic low level of TPMT, recent RBC transfusion can variably increase their assayed enzymatic activity depending on the amount and circulating half-life of the transfused red blood cells. This test was developed and its performance characteristics determined by [employer] It has not been cleared or approved by the Food and Drug Administration. This case has been reviewed, approved, interpreted and electronically signed by Go Saenz, PhD, [facility]. Methodology [facility] INSURANCE BILL Comment: Enzymatic Endpoint/Liquid Chromatography - Tandem Mass Spectrometry (LC-MS/MS) Blood BLOOD SPECIMEN / Unknown 07/27/2020 3:14 PM CDT 07/27/2020 Narrative Resulting Agency Comment Lab Testing performed at: [facility] [address] [place] [address] ??[facility] [phone] Gloria Smith MD LAB - CHEMISTRY MARII ARAUJO [facility] Organization Address City/State/ZIP Co de Phone Number [facility] INSURANCE BILL [address] [place] [address] * XR HAND RIGHT 3VW OR MORE (05/10/2020 10:37 AM PACKAGE CENTER SUPERVISOR) Anatomical Region Laterality Modality Wrist / Hand Computed Radiogr aphy Narrative 05/10/2020 10:38 AM PACKAGE CENTER SUPERVISOR Mora Delgado, RT(R) ? 05/10/2020 11:39 AM See chart for xray results Nini Han MD DIAGNOSTIC IMAGING ORDERABLES * XR SI JOINTS 3VW OR MORE (02/06/2020 1:46 PM CDT) Anatomical Region Laterality Modality Pelvis, Lower Extremity Radiogra phic Imaging 02/06/2020 2:55 PM CDT Impressions 02/06/2020 2:55 PM CDT No acute osseous abnormality *Reading Radiologist: Bobby Rivera on 02/06/2020 at 2:55 PM Narrative 02/06/2020 2:55 PM CDT Sacroiliac joints 3 views INDICATION: Sacroiliac joint pain FINDINGS: 3 views of the sacroiliac joints without prior for comparison shows no acute fracture, subluxation or dislocation. The bilateral SI joints are patent and symmetric. Procedure Note Bobby Rivera MD - 02/06/2020 Sacroiliac joints 3 views INDICATION: Sacroiliac joint pain FINDINGS: 3 views of the sacroiliac joints without prior for comparison shows no acute fracture, subluxation or dislocation. The bilateral SI joints are patent and symmetric. IMPRESSION No acute osseous abnormality *Reading Radiologist: Bobby Rivera on 02/06/2020 at 2:55 PM Gloria Smith MD DIAGNOSTIC IMAGING O RDERABLES * HLA TYPING B27 (02/06/2020 1:32 PM CDT) HLA-B27 Negative [facility] INSURANCE BILL Comment: HLA-B*27 Negative B27 allele interpretation for all loci based on IMGT/HLA database version 3.38 This test was developed and its performance characteristics determined by [facility]. ??It has not been cleared or approved by the Food and Drug Administration. [facility] Lab CLIA ID Number [id number] ? . This test was performed using PCR (Polymerase Chain Reaction)/SSOP (Sequence Specific Oligonucleotide Probes) technique. ??SBT (Sequence Based Typing) and/or SSP (Sequence Specific Primers) may be used as supplemental methods when necessary. ??Please contact [facility] Customer Service at if you have any questions. ? . Director of HLA Laboratory Dr Frankie Salinas, PhD Blood BLOOD SPECIMEN / Unknown 02/06/2020 1:32 PM CDT 02/06/2020 Narrative Resulting Agency Comment Lab Testing performed at: [place] [id number] [facility] ??[facility] [phone] Gloria Smith MD LAB - CHEMISTRY MARII ARAUJO [facility] INSURANCE BILL [address] [place] [address] * BASIC METABOLIC PANEL (CALCIUM TOTAL) (09/26/2019 1:18 PM CDT) Glucose 98 70 - 105 mg/dL [facility] INSURANCE BILL BUN 17 8.4 - 25.7 mg/dL [facility] INSURANCE BILL Creatinine 1.14 0.72 - 1.25 mg/dL [facility] INSURANCE BILL eGFR by MDRD >60 >60 mL/min/1.7 3m2 [facility] INSURANCE BILL eGFR by MDRD >60 >60 mL/min/1.7 3m2 [facility] INSURANCE BILL Sodium 137 136 - 145 mmol/L [facility] INSURANCE BILL Potassium 4.4 3.5 - 5.1 mmol/L [facility] INSURANCE BILL Chloride 102 98 - 107 mmol/L [facility] INSURANCE BILL CO2 27 23 - 31 mmol/L [facility] INSURANCE BILL Calcium 8.7 8.4 - 10.4 mg/dL [facility] INSURANCE BILL Blood BLOOD SPECIMEN / Unknown 09/26/2019 1:18 PM CDT 09/26/2019 Narrative Resulting Agency Comment Lab Testing performed at: [address] ?? [facility] [phone] Gloria Smith MD LAB - CHEMISTRY MARII [facility] INSURANCE BILL [address] [place] [address] * DEXA BONE DENSITY 2 SITES (07/09/2019) Anatomical Region Laterality Modality Other 07/09/2019 Narrative 07/09/2019 Ordered by an unspecified provider. Scanned Document DEXA ORDERABLES * XR CERVICAL SPINE 2 OR 3VW (04/18/2019 1:48 PM PACKAGE CENTER SUPERVISOR) Only the most recent of2 resultswithin the time period is included. Anatomical Region Laterality Modality Spine Radiographic Reena ging 04/18/2019 1:56 PM PACKAGE CENTER SUPERVISOR Impressions 04/18/2019 1:59 PM PACKAGE CENTER SUPERVISOR There is moderate disc space narrowing at C5-6 and C6-7 with osteophytosis at C5-6. This could be further evaluated by MRI if indicated. Reading Radiologist: Cristina Avalos MD on 04/18/2019 at 1:59 PM Narrative 04/18/2019 1:59 PM PACKAGE CENTER SUPERVISOR Cervical spine AP and lateral INDICATION: Neck pain and stiffness. Numbness and tingling to both arms. No trauma. FINDINGS: AP, odontoid and lateral views of the cervical spine were obtained. There is straightening of the normal cervical lordosis. Retrolisthesis of C5 on C6 measures approximately 1 mm. There is no prevertebral soft tissue swelling. The base of the dens appears intact on odontoid view. Moderate disc space narrowing is present at C5-6 and C6-7 with anterior osteophytosis at C5-6. No acute bony injury is seen. Procedure Note Cristina Avalos MD - 04/18/2019 Cervical spine AP and lateral INDICATION: Neck pain and stiffness. Numbness and tingling to both arms. No trauma. FINDINGS: AP, odontoid and lateral views of the cervical spine were obtained. There is straightening of the normal cervical lordosis. Retrolisthesis of C5 on C6 measures approximately 1 mm. There is no prevertebral soft tissue swelling. The base of the dens appears intact on odontoid view. Moderate disc space narrowing is present at C5-6 and C6-7 with anterior osteophytosis at C5-6. No acute bony injury is seen. IMPRESSION There is moderate disc space narrowing at C5-6 and C6-7 with osteophytosis at C5-6. This could be further evaluated by MRI if indicated. Reading Radiologist: Cristina Avalos MD on 04/18/2019 at 1:59 PM Gloria Smith MD DIAGNOSTIC IMAGING O RDERABLES * PAIN MANAGEMENT PROCEDURE TIME (10/28/2018 12:59 PM CDT) Only the most recent of15 resultswithin the time period is included. Anatomical Region Laterality Modality X-Ray Angiograph y Narrative 10/28/2018 1:18 PM CDT Alejandro Mirza MD ? 10/28/2018 ??1:18 PM ?Bilateral L5 & S1 Transforaminal Epidural Injection Patient Name: Chalino Deng ?Provider: Alejandro Mirza MD Date of : 1960 ?Date: 10/28/2018 PCP: Tomas Hyman MD Allergies: Allergies as of 10/28/2018 - Complete 10/28/2018 Allergen Reaction Noted ? ? Plaquenil [hydroxychloroquine sulfate] ??05/15/2011 ? ? Tuberculin ppd ??07/27/2008 Medical History: Past Medical History: Diagnosis Date ? ? RA (rheumatoid arthritis) ?? Current Medications: Current Outpatient Prescriptions Medication ? ? alendronate (FOSAMAX) 70 MG tablet ? ? aspirin EC (ECOTRIN) 81 MG tablet ? ? atorvastatin (LIPITOR) 40 MG tablet ? ? buPROPion (WELLBUTRIN) 100 MG tablet ? ? tkjipthxnis-qqfv-bfwdlqgh, PF, (REFRESH OPTIVE ADVANCED PF) 0.5-1-0.5 % SOLN ? ? carvedilol (COREG) 12.5 MG tablet ? ? ferrous sulfate 325 (65 FE) MG tablet ? ? gabapentin (NEURONTIN) 300 MG capsule ? ? Jthxyeovbtw-Hjzfgigba-Xfy C-Mn (GLUCOSAMINE CHONDR 1500 COMPLX PO) ? ? hydroCHLOROthiazide (HYDRODIURIL) 25 MG tablet ? ? icosapent ethyl (VASCEPA) 1 G capsule ? ? InFLIXimab (REMICADE IV) ? ? Magnesium Citrate 100 MG TABS ? ? methotrexate 2.5 MG tablet ? ? Multiple Vitamin (MULTI-VITAMIN PO) ? ? Multiple Vitamins-Minerals (OCUVITE ADULT 50+ PO) ? ? naproxen (NAPROSYN) 500 MG tablet ? ? oxyCODONE-acetaminophen (PERCOCET) 5-325 MG tablet ? ? pantoprazole EC (PROTONIX) 40 MG tablet ? ? Potassium 99 MG tablet ? ? predniSONE (DELTASONE) 10 MG tablet ? ? ZYRTEC 10 MG TABS Current Facility-Administered Medications Medication ? ? iopamidol (ISOVUE M 200) 41 % contrast HPI: ?Pain management: ?Pt. prestents today for a transforaminal edpidural injection. Procedures: TFE ??Bilateral L5 & S1 ?? Diagnosis/Indication::Lumbar Transforaminal epidural injection ?? M54.16, M48.06, M51.17 Indication for Procedure: Intractable radicular pain of the lower extremity. Other conservative therapies and/or treatments provided inadequate pain relief. Procedure: ??Lumbar/Sacral Transforaminal Injection. Informed Consent: ??After the patient Chalino Deng ??was informed of the risks and benefits of the procedure and all questions were answered, consent was signed. Risks benefits, and alternative were discussed including risk of infection, bleeding , nerve damage, worsening pain, no pain relief whatsoever, transient increase in blood pressure, blood sugar, fluid retention,possibility of headache, possibility of shingles, or any other viral outbreak secondary to immunosuppressant effects of steroid use. Prep: ??Pt identified, proper procedure identified, site identified, and marked by Dr. Mirza. ??Responsible local tanker truck driver is not needed due to the patient not having sedation. The patient was placed in a prone position and was prepped with Chloraprep. . Fluoroscopy: ??Procedure done under fluoroscopy; verifying needle placement with ??Fluoroscopy. The transverse process/sacral foramen was identified and lidocaine 1% was injected. Local Injection: ??Lidocaine 1.0% into the skin and subcutaneous tissues using a 25 gauge needle. Needle Placement: A 22 gauge 3 1/2 spinal needle was then inserted through the anesthetized area until the tip stimulated the nerve root or was in the six o'clock position to the pedicle in AP and superior foramen in Lat fluoroscopic visualization. Nerve Root injected: Bilateral L5 & S1. Total Lidocaine: !%; 6ml Dexamethasone: 10mg, 2.5mg per level andIsovue-M 200 , .5cc per level Estimated Blood Loss: None ? Isovue-M 200 Waste : 8cc ? The patient tolerated the procedure well and there were no complications. ??The patient was taken to the recovery area. ??The patient remained in stable condition with no apparent complications. ??Vital signs stable. ??Injection site clean, dry, and intact. ??Post procedure instructions were given to the patient and a follow up appointment was confirmed. ??The patient was discharged with information on how to reach the clinic at anytime for questions or concerns. ??Pt ambulatory, denies complaints, DC to home. ??Pt survey given. Procedure codes: Epi Transfor Lumbar/Sac (S), Epi Add Levels Lumb/Sac, Fluoro. Alejandro Mirza MD Alejandro Mirza MD DIAGNOSTIC IMAGING O RDERABLES * (ABNORMAL) LIPID PROFILE W TCHOL/HDL (12/19/2017 1:00 PM CDT) Only the most recent of11 resultswithin the time period is included. Cholesterol 153 100 - 199 mg/dL [facility] INSURANCE BILL Triglycerides 194(H) 0 - 149 mg/dL [facility] INSURANCE BILL HDL Cholesterol 48 >39 mg/dL [facility] INSURANCE BILL VLDL Calculated 39 5 - 40 mg/dL [facility] INSURANCE BILL LDL Calculated 66 0 - 99 mg/dL [facility] INSURANCE BILL Comment NOT NEEDED [facility] INSURANCE BILL Comment:Ancillary determined the test is not needed Cholesterol/HDL Ratio 3.2 0.0 - 5.0 ratio [facility] INSURANCE BILL Comment: ? T. Chol/HDL Ratio ? Men ??Women ? 1/2 Avg.Risk ??3.4 ?3.3 ? Avg.Risk ??5.0 ?4.4 ?2X Avg.Risk ??9.6 ?7.1 ?3X Avg.Risk 23.4 ?? 11.0 Blood BLOOD SPECIMEN / Unknown 12/19/2017 1:00 PM CDT 12/19/2017 Narrative Resulting Agency Comment [facility] [place] [address] ??[facility] [phone] Isidro Heredia MD LAB - CHEMISTRY ORD ERABLES [facility] INSURANCE BILL [address] [place] [address] * VASCULAR LAB ORDER (05/02/2017) Anatomical Region Laterality Modality Other Isidro Heredia MD VASCULAR LAB ORDERA BLES * XR ANKLE BILAT 2 VIEWS (03/08/2017 4:07 PM PACKAGE CENTER SUPERVISOR) Anatomical Region Laterality Modality Ankle / Foot, Lower Extremity Ra diographic Imaging 03/08/2017 4:14 PM PACKAGE CENTER SUPERVISOR Impressions 03/08/2017 4:15 PM PACKAGE CENTER SUPERVISOR No fracture. Narrative 03/08/2017 4:15 PM PACKAGE CENTER SUPERVISOR Bilateral ankles 2 views INDICATION: Ankle pain AP and lateral views of the ankles are provided. There is no fracture nor malalignment nor radiopaque foreign body. Procedure Note Meenakshi Marin MD - 03/08/2017 Bilateral ankles 2 views INDICATION: Ankle pain AP and lateral views of the ankles are provided. There is no fracture nor malalignment nor radiopaque foreign body. IMPRESSION No fracture. Isidro Heredia MD DIAGNOSTIC IMAGING ORDERABLES * IMAGING/RADIOLOGY/XRAY RESULTS ORDER (02/17/2017) Only the most recent of5 resultswithin the time period is included. Anatomical Region Laterality Modality Other Isidro Heredia MD IMAGING * CARDIAC ECHOCARDIOGRAM COMPLETE ORDER (11/09/2016) Isidro Heredia MD ECHO ORDERABLES * XR CHEST PA AND LATERAL (09/21/2016 3:52 PM CDT) Only the most recent of3 resultswithin the time period is included. Anatomical Region Laterality Modality Chest Radiographic Reena ging 09/21/2016 3:53 PM CDT Impressions 09/21/2016 3:54 PM CDT Normal two-view chest x-ray. Narrative 09/21/2016 3:54 PM CDT PA AND LATERAL CHEST INDICATION: Shortness of breath x3 weeks FINDINGS: PA and lateral views of the chest show the lungs to be expanded and clear. The cardiac and mediastinal silhouettes and pulmonary vascularity are within normal limits. Procedure Note Cristina Avalos MD - 09/21/2016 PA AND LATERAL CHEST INDICATION: Shortness of breath x3 weeks FINDINGS: PA and lateral views of the chest show the lungs to be expanded and clear. The cardiac and mediastinal silhouettes and pulmonary vascularity are within normal limits. IMPRESSION Normal two-view chest x-ray. Isidro Heredia MD DIAGNOSTIC IMAGING ORDERABLES * (ABNORMAL) LIPID PROFILE (LIPID PANEL) (08/24/2016 1:00 PM CDT) Only the most recent of2 resultswithin the time period is included. Cholesterol 190 100 - 199 mg/dL [facility] INSURANCE BILL Triglycerides 230(H) 0 - 149 mg/dL [facility] INSURANCE BILL HDL Cholesterol 66 >39 mg/dL [facility] INSURANCE BILL VLDL Calculated 46(H) 5 - 40 mg/dL [facility] INSURANCE BILL LDL Calculated 78 0 - 99 mg/dL [facility] INSURANCE BILL Comment NOT NEEDED [facility] INSURANCE BILL Comment:Ancillary determined the test is not needed Blood BLOOD SPECIMEN / Unknown 08/24/2016 1:00 PM CDT 08/24/2016 Narrative Resulting Agency Comment [facility] [address] ??[facility] [phone] Isidro Heredia MD LAB - CHEMISTRY ORD ERABLES [facility] INSURANCE BILL [address] [place] [address] * PO REF LAB-SPECIMEN STATUS REPORT (02/23/2016 1:30 AM CDT) Specimen Status Report NOT NEEDED [facility] INSURANCE BILL Comment: Test could not be performed due to degeneration of specimen. ?TEST: ??[id number] ??Sedimentation Rate-Westergren Ancillary determined the test is not needed 02/23/2016 1:30 AM CDT 02/23/2016 6:29 PM CDT Narrative Resulting Agency Comment [facility] [address] [facility] [facility] ??[facility] [phone] Isidro Heredia MD LAB - CHEMISTRY ORD ERABLES Performing Organization Address [facility] Co de Phone Number [facility] INSURANCE BILL [address] [place] [address] * TSH (10/13/2015 3:30 PM CDT) Only the most recent of2 resultswithin the time period is included. TSH 1.06 0.358 - 3.740 uIU/mL [facility] INSURANCE BILL Blood specimen (specimen) BLOOD SPECIMEN / Unknown 10/13/2015 3:30 PM CDT 10/13/2015 6:21 PM CDT Narrative Resulting Agency Comment [facility] [address] ??[facility] [phone] Isidro Heredia MD LAB - CHEMISTRY ORD ERABLES Performing Organization Address City/[facility]/ZIP Co de Phone Number [facility] INSURANCE BILL [address] [place] [address] * T4 TOTAL (10/13/2015 3:30 PM CDT) Only the most recent of2 resultswithin the time period is included. T4 Total 4.9 4.7 - 13.3 ug/dL [facility] INSURANCE BILL Blood specimen (specimen) BLOOD SPECIMEN / Unknown 10/13/2015 3:30 PM CDT 10/13/2015 6:21 PM CDT Narrative Resulting Agency Comment [facility] [address] ??[place] [phone] Isidro Heredia MD LAB - CHEMISTRY CALEB FIELDS [facility] INSURANCE BILL [address] [place] [address] * CYCLIC CITRUL PEPTIDE ANTIBODY IGG/IGA (CCP) (08/12/2014 2:08 PM CDT) Only the most recent of7 resultswithin the time period is included. CCP Antibodies IgG/IgA 8 0 - 19 units [facility] INSURANCE BILL Comment: ? Negative ? <20 ? Weak positive ?20 - 39 ? Moderate positive ??40 - 59 ? Strong positive ?>59 BLOOD SPECIMEN / Unknown 08/12/2014 2:08 PM CDT 08/12/2014 6:39 PM CDT Narrative Resulting Agency Comment [facility] [address] ??[facility] [phone] Isidro Heredia MD LAB - SEROLOGY MARII ARAUJO [facility] INSURANCE BILL * RHEUMATOID FACTOR BLOOD QUANTITATIVE (08/12/2014 2:08 PM CDT) Only the most recent of9 resultswithin the time period is included. Rheumatoid Factor 10.2 0.0 - 13.9 IU/mL [facility] INSURANCE BILL Blood specimen (specimen) BLOOD SPECIMEN / Unknown 08/12/2014 2:08 PM CDT 08/12/2014 6:39 PM CDT Narrative Resulting Agency Comment [facility] [address] [facility] ??[facility] [phone] Isidro Heredia MD LAB - CHEMISTRY ORD ERABLES [facility] INSURANCE BILL * KAMI STAINING PATTERNS REFLEXED (PO REF LAB) (08/12/2014 2:03 PM CDT) Only the most recent of2 resultswithin the time period is included. Pathologist [facility] Homogeneous Pattern 1:80 [facility] INSURANCE BILL Nucleolar Pattern NOT NEEDED [facility] INSURANCE BILL Comment:Ancillary determined the test is not needed Speckled Pattern NOT NEEDED [facility] INSURANCE BILL Comment:Ancillary determined the test is not needed Centromere Pattern NOT NEEDED [facility] INSURANCE BILL Comment:Ancillary determined the test is not needed Note [facility] INSURANCE BILL Comment: A positive ROSA result may occur in healthy individuals or be associated with a variety of diseases. ??See interpre- tation below: ? . Pattern ?Antigen Detected ??Suggested Disease Association ? Homogeneous ??DNA(ds,ss,), ?High titers - SLE (Smooth) ? Histone ? Speckled ? Sm, DRAGLINE MECHANIC, SCL-70, ??SLE,MCTD,Scleroderma,Sjogrens ? SS-A/SS-B ? Nucleolar ?SCL-70, PM-1/SCL ??High titers Scleroderma Poly- ? myositis/Scleroderma Overlap ? Centromere ?? Centromere ?PSS w/Crest syndrome variable ?? 08/12/2014 2:03 PM CDT 08/12/2014 6:39 PM CDT Narrative Resulting Agency Comment [place] [id number] [facility] ??[facility] [phone] Isidro Heredia MD LAB - PATHOLOGY/CYT OLOGY ORDERABLES [facility] INSURANCE BILL * ROSA BLOOD SCREEN W/REFLEX TITER (08/12/2014 2:03 PM CDT) Only the most recent of3 resultswithin the time period is included. ROSA See patterns [facility] INSURANCE BILL Comment: ?Negative ?? <1:80 ?Borderline ??1:80 ?Positive ?? >1:80 Blood specimen (specimen) BLOOD SPECIMEN / Unknown 08/12/2014 2:03 PM CDT 08/12/2014 6:39 PM CDT Narrative Resulting Agency Comment [facility] [address] ??[facility] [phone] Isidro Heredia MD LAB - CHEMISTRY ORD ERABLES [facility] INSURANCE BILL * XR HANDS BILAT SINGLE VIEW (08/12/2014 1:12 PM CDT) Anatomical Region Laterality Modality Wrist / Hand, Upper Extremity Co mputed Radiography Narrative 08/13/2014 5:38 PM CDT Isidro Heredia MD ? 08/13/2014 ??5:38 PM Xray bilat hands: Rheumatoid Arthritis with joint space narrowing mcps and radial-carpal joints. No erosions. Isidro Heredia MD DIAGNOSTIC IMAGING ORDERABLES * CARDIAC EKG ORDER (05/22/2014) Isidro Heredia MD CARDIAC SERVICES OR DERABLES * EMG WITH NERVE CONDUCTION STUDY (03/23/2014) Alejandro Mirza MD NEUROLOGY ORDERABLES * XR LUMBAR SPINE 2 OR 3 VW (01/06/2014 2:02 PM CDT) Anatomical Region Laterality Modality Spine Other Narrative 01/06/2014 2:02 PM CDT Isidro Heredia MD ? 01/06/2014 ??2:02 PM Xrays Lumbar spine: Loss of lordotic curve. No other significant abnormalities Isidro Heredia MD DIAGNOSTIC IMAGING ORDERABLES * MRI SPINE LUMBAR NON CONTRAST (01/02/2014 7:57 AM CDT) Anatomical Region Laterality Modality Spine Magnetic Resonan ce 01/02/2014 11:1 2 AM CDT Impressions 01/02/2014 11:22 AM CDT L4-5 and L5-S1 posterior annular bulges and spondylitic changes as described without overt stenosis. See above. Edited by Josefa Harrison on 01/02/2014 11:19 AM Narrative 01/02/2014 11:22 AM CDT MRI LUMBAR SPINE WITHOUT CONTRAST CLINICAL INDICATION: Low back pain and lumbar radiculopathy. Right leg pain. TECHNIQUE: Sagittal and axial T1 and T2, sagittal STIR weighted images without contrast. COMPARISON: None. FINDINGS Degenerative disc changes are present at L4-5 and L2-3 with loss of T2 weighted signal. The conus ends at L1. There is no acute fracture or subluxation or acute bone marrow edema. 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 On dedicated axial images: L1-2: No focal disc protrusion, central canal stenosis or neural foraminal narrowing is demonstrated. L2-3: Mild posterior annular bulge is present without central canal stenosis or neural foraminal narrowing. L3-4: No focal disc protrusion, central canal stenosis or neural foraminal narrowing is demonstrated. L4-5: Mild diffuse posterior annular bulge is present. AP diameter of the canal measures 1.27 cm. No neural foraminal narrowing is demonstrated. L5-S1: Posterior annular bulge and spondylitic change are present without overt central canal stenosis. The neural foramina are patent bilaterally. Procedure Note Bobby Rivera MD - 01/02/2014 MRI LUMBAR SPINE WITHOUT CONTRAST CLINICAL INDICATION: Low back pain and lumbar radiculopathy. Right leg pain. TECHNIQUE: Sagittal and axial T1 and T2, sagittal STIR weighted images without contrast. COMPARISON: None. FINDINGS Degenerative disc changes are present at L4-5 and L2-3 with loss of T2 weighted signal. The conus ends at L1. There is no acute fracture or subluxation or acute bone marrow edema. 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 On dedicated axial images: L1-2: No focal disc protrusion, central canal stenosis or neural foraminal narrowing is demonstrated. L2-3: Mild posterior annular bulge is present without central canal stenosis or neural foraminal narrowing. L3-4: No focal disc protrusion, central canal stenosis or neural foraminal narrowing is demonstrated. L4-5: Mild diffuse posterior annular bulge is present. AP diameter of the canal measures 1.27 cm. No neural foraminal narrowing is demonstrated. L5-S1: Posterior annular bulge and spondylitic change are present without overt central canal stenosis. The neural foramina are patent bilaterally. IMPRESSION L4-5 and L5-S1 posterior annular bulges and spondylitic changes as described without overt stenosis. See above. Edited by Josefa Harrison on 01/02/2014 11:19 AM Isidro Heredia MD MR ORDERABLES * CT THORAX ABDOMEN PELVIS W CONT (03/25/2013 8:59 AM PACKAGE CENTER SUPERVISOR) Anatomical Region Laterality Modality Chest, Abdomen, Pelvis Computed Tomography 03/25/2013 11:5 3 AM PACKAGE CENTER SUPERVISOR Narrative 03/25/2013 11:57 AM PACKAGE CENTER SUPERVISOR Examination: CT chest with contrast. Indication for examination: Chest pain. Contrast-enhanced CT examination of the chest is performed 2.5 mm helical technique with sagittal and coronal reconstructions. 80 mL Omnipaque 350 contrast were used. No prior chest imaging studies are available. Examination of the lung parenchyma reveals that the lungs are well aerated. No discrete active or acute lung infiltrate is identified. There is no pneumothorax. There is no bronchiectasis or significant emphysematous change. There is no pleural or pericardial effusion. There are no abnormally enlarged hilar or mediastinal lymph nodes. Thoracic aorta is normal in contour. No bone destruction is observed. Conclusion: Unremarkable contrast-enhanced CT chest. Examination: CT abdomen and pelvis with contrast. Indication for examination: Generalized abdominal pain. CT examination of the abdomen and pelvis is performed with intravenous and oral contrast with coronal reconstructions. ??80 mL Omnipaque 350 contrast were used. No prior abdominal imaging studies are available. CT abdomen: CT examination of the abdomen shows that the liver and spleen are normal in size. No focal parenchymal mass identified. Gallbladder is normal in size. Bile ducts are not dilated. Pancreas is normal in size and appearance without focal mass. Kidneys are normal in size and shape. No obstruction or dilatation is identified. No calcified stone is observed. There are no abnormally enlarged retroperitoneal lymph nodes. There is no bowel obstruction or perforation. There is no ascites or loculated peritoneal fluid. CT pelvis: CT examination of the pelvis shows no mass lesion or fluid collection. There is no evidence of colitis or diverticulitis. There is sigmoid diverticulosis. Diverticula are also noted in the descending colon. Appendix is grossly normal in caliber. No free fluid. There is no bone destruction. Conclusion: Diverticula formation in the descending colon and particularly in the sigmoid. No evidence of colitis or diverticulitis. Otherwise unremarkable CT abdomen and pelvis as described. No acute abnormality identified. Procedure Note Dayne Rodriguez MD - 03/25/2013 Examination: CT chest with contrast. Indication for examination: Chest pain. Contrast-enhanced CT examination of the chest is performed 2.5 mm helical technique with sagittal and coronal reconstructions. 80 mL Omnipaque 350 contrast were used. No prior chest imaging studies are available. Examination of the lung parenchyma reveals that the lungs are well aerated. No discrete active or acute lung infiltrate is identified. There is no pneumothorax. There is no bronchiectasis or significant emphysematous change. There is no pleural or pericardial effusion. There are no abnormally enlarged hilar or mediastinal lymph nodes. Thoracic aorta is normal in contour. No bone destruction is observed. Conclusion: Unremarkable contrast-enhanced CT chest. Examination: CT abdomen and pelvis with contrast. Indication for examination: Generalized abdominal pain. CT examination of the abdomen and pelvis is performed with intravenous and oral contrast with coronal reconstructions. 80 mL Omnipaque 350 contrast were used. No prior abdominal imaging studies are available. CT abdomen: CT examination of the abdomen shows that the liver and spleen are normal in size. No focal parenchymal mass identified. Gallbladder is normal in size. Bile ducts are not dilated. Pancreas is normal in size and appearance without focal mass. Kidneys are normal in size and shape. No obstruction or dilatation is identified. No calcified stone is observed. There are no abnormally enlarged retroperitoneal lymph nodes. There is no bowel obstruction or perforation. There is no ascites or loculated peritoneal fluid. CT pelvis: CT examination of the pelvis shows no mass lesion or fluid collection. There is no evidence of colitis or diverticulitis. There is sigmoid diverticulosis. Diverticula are also noted in the descending colon. Appendix is grossly normal in caliber. No free fluid. There is no bone destruction. Conclusion: Diverticula formation in the descending colon and particularly in the sigmoid. No evidence of colitis or diverticulitis. Otherwise unremarkable CT abdomen and pelvis as described. No acute abnormality identified. Isidro Heredia MD CT ORDERABLES * URINALYSIS AUTO - POINT OF CARE (03/24/2013 9:16 AM PACKAGE CENTER SUPERVISOR) Clarity UA POCT Comment:creatine 100 mg/dl Color UA POCT yellow Leukocyte UA negative Negative Nitrite UA POCT negative Negative Urobilinogen UA POCT 0.1 - 1.0 EU/dL Protein UA POCT negative Negative pH UA 6.0 5.0 - 8.0 pH units Blood UA negative Negtive Specific [place]ack UA POCT 1.015 1.002 - 1.030 Ketone UA negative Negative Bilirubin UA POCT Negative Glucose UA negative Negative Urine specimen (specimen) URINE / Unknown Isidro Heredia MD LAB - POINT OF CARE ORDERABLES * (ABNORMAL) QUANTIFERON IN TUBE REFLEXED (PO REF LAB) (07/22/2012 4:43 PM CDT) QuantiFERON TB Gold Positive( A) Negative [facility] ACCOUNT BILL QuantiFERON Criteria [facility] ACCOUNT BILL Comment: To be considered positive a specimen should have a TB Ag minus Nil value greater than or equal to 0.35 IU/mL and in addition the TB Ag minus Nil value must be greater than or equal to 25% of the Nil value. There may be insufficient information in these values to differentiate between some negative and some indeterminate test values. QuantiFERON TB Ag Value 1.92 IU/mL [facility] ACCOUNT BILL QuantiFERON Nil Value 0.73 IU/mL [facility] ACCOUNT BILL QuantiFERON Mitogen Value 6.02 IU/mL [facility] ACCOUNT BILL QFT TB Ag Minus Nil Value IU/mL 1.19 IU/mL [facility] ACCOUNT BILL Interpretation [facility] ACCOUNT BILL Comment: The QuantiFERON TB Gold (in Tube) assay is intended for use as an aid in the diagnosis of TB infection. Negative results suggest that there is no TB infection. In patients with high suspicion of exposure, a negative test should be repeated. A positive test indicates infection with Mycobacterium tuberculosis. Among individuals without tuberculosis infection, a positive test may be due to exposure to M. kansasii, M. szulgai or M. marinum. On the Internet, go to cdc.gov/tb for further details. 07/22/2012 4:43 PM CDT 07/22/2012 6:18 PM CDT Narrative Resulting Agency Comment [facility] [address] ??[facility] [phone] Isidro Heredia MD LAB - CHEMISTRY ORD ERABLES [facility] ACCOUNT BILL * (ABNORMAL) LIPID PROFILE W LDL/HDL (PO REF LAB) (05/15/2011 6:06 PM PACKAGE CENTER SUPERVISOR) Cholesterol 191 100 - 199 mg/dL [facility] ACCOUNT BILL Triglycerides 334(H) 0 - 149 mg/dL [facility] ACCOUNT BILL HDL Cholesterol 47 >39 mg/dL [facility] ACCOUNT BILL Comment: According to ATP-III Guidelines, HDL-C >59 mg/dL is considered a negative risk factor for CHD. VLDL Calculated 67(H) 5 - 40 mg/dL [facility] ACCOUNT BILL LDL Calculated 77 0 - 99 mg/dL [facility] ACCOUNT BILL LDL/HDL Ratio 1.6 0.0 - 3.6 ratio units [facility] ACCOUNT BILL BLOOD SPECIMEN / Unknown 05/15/2011 6:06 PM PACKAGE CENTER SUPERVISOR 05/15/2011 9:47 PM PACKAGE CENTER SUPERVISOR Narrative Resulting Agency Comment [facility] [address] ??[facility] [phone] Isidro Heredia MD LAB - CHEMISTRY ORD ERABLES [facility] ACCOUNT BILL * URIC ACID BLOOD (08/24/2008 6:37 PM CDT) Uric Acid 5.1 2.4 - 8.2 mg/dL [facility] INSURANCE BILL BLOOD SPECIMEN / Unknown 08/24/2008 6:37 PM CDT 08/24/2008 9:56 PM CDT Narrative Resulting Agency Comment [facility] [place] [address] ??[place] [phone] Isidro Heredia MD LAB - CHEMISTRY Finder[employer]MEGAN [facility] INSURANCE BILL * HEMOGLOBIN A1C (08/24/2008 6:37 PM CDT) Hemoglobin A1c 5.6 <7.0 % [facility] INSURANCE BILL Comment: ?Diabetic Adult ?<7.0 ?Healthy Adult ?4.8 - 5.9 ?(DCCT/NGSP) ?[place] [employer]'s Summary of Glycemic ?Recommendations for Adults with Diabetes: ?Hemoglobin A1c <7.0%. More stringent glycemic goals ?(A1c <6.0%) may further reduce complications at the ?cost of increased risk of hypoglycemia. BLOOD SPECIMEN / Unknown 08/24/2008 6:37 PM CDT 08/24/2008 9:56 PM CDT Narrative Resulting Agency Comment [facility] [place] [address] ??[place] [phone] Isidro Heredia MD LAB - CHEMISTRY CALEB [employer] [facility] INSURANCE BILL * CYCLIC CITRUL PEPTIDE ANTIBODY IGG (CCP) (08/24/2008 6:37 PM CDT) CCP Antibody IgG 1 0 - 5 U/mL [facility] INSURANCE BILL Comment: ?Negative: ??0 - 5 ?Positive: ? >5 08/24/2008 6:37 PM CDT 08/24/2008 9:56 PM CDT Narrative Resulting Agency Comment [facility] [address] ??[facility] [phone] Isidro Heredia MD LAB - CHEMISTRY ORD ERABLES [facility] INSURANCE BILL Care Teams Engraver Letter Relationship Specialty Start Date End Date Tomas Hyman MD [address] [facility] [address] [place] [address] PCP - General Family Medicine 09/05/18 Isidro Heredia MD Rheumatology 02/09/11
--- OUTSIDE RECORDS SUMMARY | 2024-05-03 04:03 | XMS_ITS | Encounter Summary ---
Author Organization [facility] Address [address] [place] [address] Care Team Providers Care Gear And Spline Grinder Name Role Phone Isidro Heredia MD Unavailable [phone] Tomas Hyman MD Primary Care Provider [phone] Encounter Details Date Type Department Care Team (Late Contact Info) Description 09/14/2023 Orders Only [facility] - Rheumatology [address] [place] [address] Gloria Smith MD [address] [place] [phone] Rheumatoid arthritis of multiple sites with [...] (Late Contact Info) Description 06/03/2024 1:00 PM FRUIT SPRAYER Appointment [facility] - Rheumatology [address] [place] [address] 06/03/2024 2:00 PM FRUIT SPRAYER Office Visit [facility] - Rheumatology [address] [place] [address] [phone] Gloria Smith MD [address] [place] [address] documented as of this encounter Procedures Procedure Name Priority Date/Time Associated Diagnosis Comments CBC W AUTO DIFFERENTIAL Routine 09/17/2023 2:54 PM CDT 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) COMPREHENSIVE METABOLIC PANEL Routine 09/17/2023 2:54 PM CDT 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) documented in this encounter Results * (ABNORMAL) COMPREHENSIVE METABOLIC PANEL (09/17/2023 2:54 PM CDT) Glucose 101(H) 70 - 99 mg/dL [facility] INSURANCE BILL BUN 13 8 - 27 mg/dL [facility] INSURANCE BILL Creatinine 1.01 0.76 - 1.27 mg/dL [facility] INSURANCE BILL eGFR by CKD-EPI 85 >59 mL/min/1.7 3 [facility] INSURANCE BILL BUN/Creatinine Ratio 13 10 - 24 [facility] INSURANCE BILL Sodium 137 134 - 144 mmol/L [facility] INSURANCE BILL Potassium 3.9 3.5 - 5.2 mmol/L [facility] INSURANCE BILL Chloride 99 96 - 106 mmol/L [facility] INSURANCE BILL CO2 23 20 - 29 mmol/L [facility] INSURANCE BILL Calcium 9.5 8.6 - 10.2 mg/dL [facility] INSURANCE BILL Protein Total 6.9 6.0 - 8.5 g/dL [facility] INSURANCE BILL Albumin 4.4 3.8 - 4.9 g/dL [facility] INSURANCE BILL Globulin Total 2.5 1.5 - 4.5 g/dL [facility] INSURANCE BILL Albumin/Globulin Ratio 1.8 1.2 - 2.2 [facility] INSURANCE BILL Bilirubin Total 0.7 0.0 - 1.2 mg/dL [facility] INSURANCE BILL Alkaline Phosphatase 58 44 - 121 IU/L [facility] INSURANCE BILL AST 21 0 - 40 IU/L [facility] INSURANCE BILL ALT 16 0 - 44 IU/L [facility] INSURANCE BILL Blood BLOOD SPECIMEN / Unknown 09/17/2023 2:54 PM CDT 09/17/2023 Narrative Resulting Agency Comment Lab Testing performed at: [facility] [address] [facility] ??[facility] [phone] Gloria Smith MD LAB - CHEMISTRY MARII ARAUJO [facility] INSURANCE BILL [address] [place] [address] * (ABNORMAL) CBC WITH DIFFERENTIAL (09/17/2023 2:54 PM CDT) WBC 8.5 3.4 - 10.8 x10E3/uL [facility] INSURANCE BILL RBC 4.11(L) 4.14 - 5.80 x10E6/uL [facility] INSURANCE BILL Hemoglobin 12.7(L) 13.0 - 17.7 g/dL [facility] INSURANCE BILL Hematocrit 37.0(L) 37.5 - 51.0 % [facility] INSURANCE BILL MCV 90 79 - 97 fL [facility] INSURANCE BILL MCH 30.9 26.6 - 33.0 pg [facility] INSURANCE BILL MCHC 34.3 31.5 - 35.7 g/dL [facility] INSURANCE BILL RDW 13.4 11.6 - 15.4 % [facility] INSURANCE BILL Platelet Count 181 150 - 450 x10E3/uL [facility] INSURANCE BILL Granulocytes % 49 Not Estab. % [facility] INSURANCE BILL Lymphocytes % 38 Not Estab. % [facility] INSURANCE BILL Monocytes % 8 Not Estab. % [facility] INSURANCE BILL Eosinophils % 4 Not Estab. % [facility] INSURANCE BILL Basophils % 1 Not Estab. % [facility] INSURANCE BILL Immature Cells NOT AVAILABLE [facility] INSURANCE BILL Comment:Result cannot be obt ained for this observation. Granulocytes Absolute 4.2 1.4 - 7.0 x10E3/uL [facility] INSURANCE BILL Lymphocytes Absolute 3.2(H) 0.7 - 3.1 x10E3/uL [facility] INSURANCE BILL Monocytes Absolute 0.6 0.1 - 0.9 x10E3/uL [facility] INSURANCE BILL Eosinophils Absolute 0.4 0.0 - 0.4 x10E3/uL [facility] INSURANCE BILL Basophils Absolute 0.1 0.0 - 0.2 x10E3/uL [facility] INSURANCE BILL Immature Granulocytes 0 Not Estab. % [facility] INSURANCE BILL Immature Granulocytes Absolute 0.0 0.0 - 0.1 x10E3/uL [facility] INSURANCE BILL nRBC NOT AVAILABLE [facility] INSURANCE BILL Comment:Result cannot be obt ained for this observation. Comment Hematology NOT AVAILABLE [facility] INSURANCE BILL Comment:Result cannot be obt ained for this observation. 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
--- OUTSIDE RECORDS SUMMARY | 2024-05-03 04:03 | XMS_ITS | Encounter Summary ---
Author Organization [facility] Address [address] [place] [address] Care Team Providers Care Entertainment & Media Correspondent Name Role Phone Isidro Heredia MD Unavailable [phone] Tomas Hyman MD Primary Care Provider [phone] Encounter Details Date Type Department Care Team (Late Contact Info) Description 11/13/2023 Orders Only [facility] - Rheumatology [address], [address] [place] [phone] Gloria Smith MD [address] [place] [phone] Social History Tobacco Use Types Packs/Day Years [...] (Late Contact Info) Description 06/03/2024 1:00 PM USER EXPERIENCE LEAD Appointment [facility] - Rheumatology [address] [place] [address] 06/03/2024 2:00 PM USER EXPERIENCE LEAD Office Visit [facility] - Rheumatology [address] [place] [address] Gloria Smith MD [address] [place] [phone] documented as of this encounter Visit Diagnoses Not on filedocumented in this encounter Care Teams Entertainment & Media Correspondent Relationship Specialty Start Date End Date Tomas Hyman MD [address] [facility] [address] [place] [phone] PCP - General Family Medicine 09/05/18 Isidro Heredia MD Rheumatology 02/09/11 documented as of this encounter
--- OUTSIDE RECORDS SUMMARY | 2024-05-03 04:03 | XMS_ITS | Encounter Summary ---
Author Organization [facility] Address [address] [place] [address] Care Team Providers Care Pelts Skinner Name Role Phone Isidro Heredia MD Unavailable [phone] Tomas Hyman MD Primary Care Provider [phone] Encounter Details Date Type Department Care Team (Latest Contact Info) Description 07/30/2023 Travel Social History Tobacco Use Types Packs/Day [...] st Contact Info) Description 06/03/2024 1:00 PM GAME WARDEN Appointment [facility] - Rheumatology [address] [place] [address] 06/03/2024 2:00 PM GAME WARDEN Office Visit [facility] - Rheumatology [address] [place] [address] Gloria Smith MD [address] [place] [phone] documented as of this encounter Visit Diagnoses Not on filedocumented in this encounter Care Teams Pelts Skinner Relationship Specialty Start Date End Date Tomas Hyman MD [address] [place] [address] PCP - General Family Medicine 09/05/18 Isidro Heredia MD Rheumatology 02/09/11 documented as of this encounter
--- OUTSIDE RECORDS SUMMARY | 2024-05-03 04:03 | XMS_ITS | Encounter Summary ---
Author Organization [facility] Address [address] [facility] [place] [address] Care Team Providers Care Bank Compliance Officer Name Role Phone Isidro Heredia MD Unavailable [phone] Tomas Hyman MD Primary Care Provider Reason for Visit * Reason Onset Date Comments Rx Medication Issue 06/06/2023 Encounter Details Date Type Department Care Team (Late st Contact Info) Description 06/06/2023 Telephone [facility] - Rheumatology [address] [place] [address] Gloria Smith MD [address] [place] [phone] Rx Medication Issue Social History Tobacco Use Types Packs/Day Years [...] encounter Miscellaneous Notes * Telephone Encounter - Cristina León MA - 06/07/2023 8:48 AM CST Called patient and message given. DISTRIBUTOR * Telephone Encounter - Gloria Smith MD - 06/06/2023 5:44 PM CST Please inform pt: I spoke with Kamila. will hold mtx while he receives radiation to reduce skin sensitivity. However, if arthritis flares up then he can resume mtx. Will continue folic acid and simponi. DISTRIBUTOR * Telephone Encounter - Hammad Rodriguez - 06/06/2023 3:59 PM CST Kamila with 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 She needs verbal that it's ok for pt to stop Mtx for 7 weeks & once done with radiation, he canre-start? She needs an answer today. DISTRIBUTOR documented in this encounter Plan of Treatment Upcoming Encounters Date Type Department Care Team (Late st Contact Info) Description 06/03/2024 1:00 PM CAR DISTRIBUTOR Appointment [facility] - Rheumatology [address] [place] [address] 06/03/2024 2:00 PM CAR DISTRIBUTOR Office Visit [facility] - Rheumatology [address] [place] [address] [phone] Gloria Smith MD [address] [place] [phone] documented as of this encounter Visit Diagnoses Not on filedocumented in this encounter Care Teams Bank Compliance Officer Relationship Specialty Start Date End Date Tomas Hyman MD [address] [place], [place] [phone] PCP - General Family Medicine 09/05/18 Isidro Heredia MD Rheumatology 02/09/11 documented as of this encounter
--- OUTSIDE RECORDS SUMMARY | 2024-05-03 04:03 | XMS_ITS | Clinical Summary ---
Author Organization [facility] Address [address] [facility] [place] [address] Care Team Providers Care Toy Trains And Accessories Salesperson Name Role Phone Isidro Heredia MD Unavailable [phone] Tomas Hyman MD Primary Care Provider [phone] Source Comments [facility],non-owned Affiliates and Associated Physician Practices is amultiple site organization consisting of ambulatory clinics and hospital sitesin [place], [place], [place] and [place]. This disclosure is being madepursuant to the Care Everywhere program and may not contain all information available regarding this patient. Last updated 18.[facility] Allergies Active Allergy Reactions Criticality Noted Date Comments Hydroxychloroquine Eye Discomfort High 01/30/2023 Hydroxychloroquine Sulfate 2 Eye vision disturbance Simvastatin GI Discomfort Medium 07/09/2014 Tuberculin Other 01/30/2023 Tuberculin Ppd 07/27/2008 Positive , CXR yrly Dx inactive TB Medications * Be aware that medications may not be up to date on this document. Alwaysverify current medications with the patient. Medication Sig Dispensed Refills Start Date End Date Status ZYRTEC 10 MG TABS Take 1 (one) tablet by mouth once daily Seasonal (nov Sept Active Multiple Vitamin (MULTI-VITAMIN PO) Take 1 Tab by mouth once daily Active Glucosamine-Chond roit-Vit C-Mn (GLUCOSAMINE CHONDR 1500 COMPLX PO) Take 1 Tab by mouth once daily Active Magnesium Citrate 100 MG TABS Take 1 (one) tablet by mouth every other day Active atorvastatin (LIPITOR) 40 MG tablet Take 1 (one) tablet by mouth at bedtime Active ferrous sulfate 325 (65 FE) MG tablet Take 1 (one) tablet by mouth once daily Active hydroCHLOROthiazi de (HYDRODIURIL) 25 MG tablet Take 1 (one) tablet by mouth once daily Active Multiple Vitamins-Minerals (OCUVITE ADULT 50+ PO) Take 1 tablet by mouth every other day Active icosapent ethyl (VASCEPA) 1 g capsule Take 2 (two) capsules by mouth 2 times daily with morning and evening meal Active Potassium 99 MG tablet Take 49.5 mg by mouth 2 times daily Active carboxymeth-glyc- polysorb, PF, 0.5-1-0.5 % SOLN Instill 1 drop into both eyes 2 times daily Active TURMERIC CURCUMIN PO Take 1,000 mg by mouth once daily Active carvedilol (COREG) 12.5 MG tablet Take 1 (one) tablet by mouth 2 times daily 07/13/2020 Active Golimumab (SIMPONI ARIA IV) 2 mg/kg by Intravenous route as directed Every 8 weeks Active aspirin EC (ECOTRIN) 81 MG tablet Take 1 (one) tablet by mouth once daily 90 tablet 11/14/2021 Active pantoprazole EC (PROTONIX) 40 MG tablet Take 1 (one) tablet by mouth once daily 90 tablet 11/14/2021 Active Additional Information Patient taking differently:40 mg Oral2 TIMES DAILY, Reported on 11/23/2023 buPROPion (Wellbutrin) 100 MG tablet Take 1 (one) tablet by mouth 2 times daily 09/04/2022 Active CRANBERRY CONCENTRATE PO Take 1 capsule by mouth once daily 500 mg Active Menaquinone-7 (K2-45) 45 MCG CAPS Take 1 capsule by mouth once daily 09/14/2023 Active vitamin D3 (Cholecalciferol) 10 MCG (400 UNIT) tablet Take 1 (one) tablet by mouth once daily Active folic acid (Folvite) 1 MG tabletIndications :High risk medication use Take 1 (one) tablet by mouth once daily 90 tablet 3 02/18/2024 Active tiZANidine (Zanaflex) 4 MG tabletIndications :Chronic neck pain,Chronic back pain, unspecified back location, unspecified back pain laterality Take 1 (one) tablet by mouth 2 times daily as needed for Muscle Spasms 60 tablet 1 02/18/2024 Active predniSONE (Deltasone) 5 MG tabletIndications :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) Take 1 (one) tablet by mouth 2 times daily 180 tablet 1 02/18/2024 Active celecoxib (CeleBREX) 200 MG capsuleIndication s: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) Take 1 (one) capsule by mouth 2 times daily 180 capsule 1 02/18/2024 Active gabapentin (Neurontin) 300 MG capsuleIndication s:Neuropathy Take 1 (one) capsule by mouth 3 times daily 270 capsule 1 02/18/2024 Active methotrexate 2.5 MG tabletIndications :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) Take 6 (six) tablets by mouth every 7 days 72 tablet 02/18/2024 Active tirzepatide (Zepbound) 2.5 MG/0.5ML injection Inject 2.5 (two and one-half) mg subcutaneously every 7 days 01/23/2024 Active Active Problems Problem Noted Date Diagnosed Date Triceps tendonitis 08/01/2017 Triceps tendonitis 01/04/2017 Chronic right-sided low back pain with right-wang ed sciatica 09/13/2015 Abnormal LFTs 04/07/2015 Lumbar radiculopathy 05/22/2014 Other and unspecified hyperlipidemia 07/09/2013 Pain medication agreement signed 11/06/2012 Overview (11/06/2012): In media marketing director dated 10/14/12 Chronic pain syndrome 12/11/2011 Subacromial bursitis 09/04/2011 Anemia 08/30/2009 Osteopenia 08/24/2008 Overview (09/14/2014): Start date 08/13/2007 CT Bone Densitometry GERD (gastroesophageal reflux disease) 9 Rheumatoid arthritis of 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 factor 07/21/2008 Overview (03/07/2015): Dx start date 06/2004, Remicade 10/2004-08/02/2005 inadequate response, Orencia 09/13/2005-11/22/2005 inadequate response, Rituxan 12/06/2005-05/01/2006, Humira 08/13/2006, Methotrexate 08/2004- 02/08/2013 , Xray hands 2004 - shows scattered tiny erosions in MCP joints. Encounters Date Type Department Care Team Description 04/04/2024 9:45 AM FURNITURE TECHNICIAN - 04/04/2024 11:59 PM FURNITURE TECHNICIAN Hospital Encounter [facility] Rheumatology [address] [place] [address] Gloria Smith MD Rheumatology Discharge Disposition: Home or Self Care 02/16/2024 Refill [facility] Rheumatology [address] [place] [address] [phone] Gloria Smith MD MEDICATION REFILL 02/08/2024 11:40 AM CDT Office Visit [facility] Rheumatology [address] [place] [address] [phone] Gloria Smith MD 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) (Primary Dx) from Last 3 Months Immunizations Name Administration Dates Next Due [employer] primary monoval ent 12+ yr 0.3mL Purple cap 03/22/2021,07/19/2020,06/28/2020 HEP A VACCINE, ADULT 04/08/1997 INFLUENZA 02/18/2020,03/04/2019,01/30/2011 INFLUENZA VACCINE, CELL CULT URE, QUADR. (FLUCELVAX QUADRIVALENT; 6MO+) (CCIIV4) 02/18/2020,03/04/2019 INFLUENZA VACCINE, QUADR. (A FLURIA, FLUZONE QUADRIVALENT; 6MO+) (IIV4) 03/04/2009,04/14/2008,03/17/2005,2004 POLIO OPV 10/06/1987 Td (Adult), 2 Lf Tetanus Tox oid, Adsorbed, Pf 01/19/2003,01/11/1993 YELLOW FEVER 03/12/1990 Zoster Hzv Vacc Recombinant Inj Im 02/18/2020 Family History Medical History Relation Name Comments Heart Failure Father Other Father asbestos exposu re Hypertension Mother Other Mother aneursym Stroke Mother Relation Name Status Comments Father HEART FAILURE Mother STROKE Social History Tobacco Use Types Packs/Day Years [...] Comments Blood Pressure 144/83 04/04/2024 10:23 AM FURNITURE TECHNICIAN Pulse 82 04/04/2024 10:23 AM FURNITURE TECHNICIAN Temperature 36.8 ??C (98.2 ??F) 04/04/2024 1 0:23 AM FURNITURE TECHNICIAN Respiratory Rate 16 09/18/2023 3:34 PM CDT Oxygen Saturation 100% 01/30/2023 10: 56 AM CDT Inhaled Oxygen Concentration - - Weight 106.4 kg (234 lb 9.6 oz) 024 10:23 AM FURNITURE TECHNICIAN Height 177.8 cm (5' 10 ) 02/08/2024 11: 48 AM CDT Body Mass Index 33.66 02/08/2024 11:48 AM CDT Plan of Treatment Upcoming Encounters Date Type Department Care Team (Late st Contact Info) Description 06/03/2024 1:00 PM FURNITURE TECHNICIAN Appointment [facility] - Rheumatology [address] [place] [address] [phone] 06/03/2024 2:00 PM FURNITURE TECHNICIAN Office Visit [facility] - Rheumatology [address] [place] [address] Gloria Smith MD [address] [place] [phone] Health Maintenance Due Date Last Done Comments COLOGUARD (AGES 45-75) - COLON CA SCREENING 1962 COLON MONITORING 1962 COLONOSCOPY - COLON CA SCREENING 1962 CT COLONOGRAPHY - COLON CA SCREENING 1962 Colorectal Cancer Screening 1962 FIT - COLON CA SCREENING 1962 FLEX SIG - COLON CA SCREENING 1962 MEDICARE AWV ? 12 MONTHS 1962 Opioid Medication Urine Drug Screening 1962 HIV SCREENING 1977 DTAP/TDAP/TD VACCINES (1 - Tdap) 01/20/2003 01/19/2003, 01/11/1993 ZOSTER VACCINE (2 of 2) 04/14/2020 02/18/2020 COVID-19 VACCINE ( season) 2023 03/22/2021, 07/19/2020, 06/28/2020 INFLUENZA VACCINE (#1) 2023 0, 02/18/2020, 03/04/2019, Additional history exists SCREENING FOR DIABETES 01/28/2027 4, 09/17/2023, 07/12/2023, Additional history exists Respiratory Syncytial Virus (RSV) Vaccine Pt: or over 60 yrs (1 - 1-dose 75+ series) 2037 HEPATITIS C SCREENING Completed 02/10/2022 DEPRESSION SCREENING Completed 02/08/2024, 05/19/2022, 06/03/2021 HEPATITIS B VACCINE Aged Out No longe r eligible based on patient's age to complete this topic HIB VACCINE Aged Out No longer eligi ble based on patient's age to complete this topic HPV VACCINE Aged Out No longer eligi ble based on patient's age to complete this topic MENINGOCOCCAL VACCINE Aged Out No neva paola eligible based on patient's age to complete this topic PNEUMOCOCCAL VACCINE Aged Out No long er eligible based on patient's age to complete this topic Procedures Procedure Name Priority Date/Time Associated Diagnosis Comments COMPREHENSIVE METABOLIC PANEL Routine 01/29/2024 10:37 AM CDT 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) HEPATITIS SCREEN ACUTE ([facility]) Routine 02/10/2022 9:46 AM CDT 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) Fatigue, unspecified type from Last 3 Months or Most Recently Relevant to Health Maintenance Results * (ABNORMAL) COMPREHENSIVE METABOLIC PANEL (01/29/2024 [...] 6:08 PM CDT Performed at: ?? - [place] [address] [address] [place], [place] ??[id number] Design Teacher: [facility], Phone: ??[phone] Gloria Smith MD LAB - CHEMISTRY MARII ARAUJO [facility] INSURANCE BILL [address] [place] [address] * HEPATITIS SCREEN ACUTE ([facility]) (02/10/2022 9:46 [...] Resulting Agency Comment Lab Testing performed at: [place] [address] [address] ?? [place] [id number] Gloria Smith MD LAB - CHEMISTRY MARII Laura Organization Address City/State/ZIP Co de Phone Number [facility] INSURANCE BILL [address] [place] [address] from Last 3 Months or Most Recently Relevant to Health Maintenance Care Teams Toy Trains And Accessories Salesperson Relationship Specialty Start Date End Date Tomas Hyman MD [address] [place] [address] PCP - General Family Medicine 09/05/18 Isidro Heredia MD Rheumatology 02/09/11
--- OUTSIDE RECORDS SUMMARY | 2024-05-03 04:03 | XMS_ITS | Encounter Summary ---
Author Organization [facility] Address [address] [facility] [place] [place] [address] Care Team Providers Care Certified Registered Nurse Practitioner Name Role Phone Isidro Heredia MD Unavailable [phone] Tomas Hyman MD Primary Care Provider [phone] Encounter Details Date Type Department Care Team (Late Contact Info) Description 12/10/2023 Orders Only [facility] - Rheumatology [address] [place] [address] Gloria Smith MD [address] [place] [phone] Rheumatoid arthritis of multiple sites with [...] (Late Contact Info) Description 06/03/2024 1:00 PM NIGHT TIME NANNY Appointment [facility] - Rheumatology [address] [place] [address] 06/03/2024 2:00 PM NIGHT TIME NANNY Office Visit [facility] - Rheumatology [address] [place] [address] [place] [address] Gloria Smith MD [address] [place] [address] documented as of this encounter Visit Diagnoses Diagnosis 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) documented in this encounter Care Teams Certified Registered Nurse Practitioner Relationship Specialty Start Date End Date Tomas Hyman MD [address] [facility] [address] [place] [address] PCP - General Family Medicine 09/05/18 Isidro Heredia MD Rheumatology 02/09/11 documented as of this encounter
--- OUTSIDE RECORDS SUMMARY | 2024-05-03 04:03 | XMS_ITS | Encounter Summary ---
Author Organization [facility] Address [address] [place] [address] Care Team Providers Care Mixing Machine Tender Cork Gasket Name Role Phone Isidro Heredia MD Unavailable [phone] Tomas Hyman MD Primary Care Provider [phone] Reason for Visit * Treatment (Elective) - Closed Specialty Diagnoses / Procedures Referred By Lawrence shah Referred To Contact Diagnoses Rheumatoid arthritis without rheumatoid factor, multiple sites (HCC) Procedures [place] GOLIMUMAB FOR IV USE 1MG Gloria Smith MD [address] [place] [address] [address] Referral ID Status Reason Start Date Expiration Date Visits Re quested Visits Authorized [id number] Closed 05/18/2023 04/29/2024 8 8 Encounter Details Date Type Department Care Team (Late st Contact Info) Description 07/30/2023 1:51 PM CDT - 07/30/2023 11:59 PM CDT Hospital Encounter [facility] Medical [facility] - Rheumatology [address] [place] [address] Gloria Smith MD [address] [place] [address] Discharge Disposition: Home or Self Care Social [...] Sign Reading Time Taken Comments Blood Pressure 139/87 07/30/2023 2:16 PM CDT Pulse 75 07/30/2023 2:16 PM CDT Temperature 36.9 ??C (98.5 ??F) 07/30/2023 2:16 PM CD T Respiratory Rate - - Oxygen Saturation - - Inhaled Oxygen Concentration - - Weight 98.5 kg (217 lb 3.2 oz) 07/30/2023 2:16 P M CDT Height - - Body Mass Index 31.16 01/30/2023 10:56 AM CDT documented in this encounter Discharge Instructions * Discharge Instructions* Shelby Higgins RN - 07/30/2023 2:21 PM CDT Discharge Instructions [facility] Rheumatology You have received your infusion [...] they should not be ignored. Sunday through Sunday-5 call the office at [phone]. After hours or on the weekend call [...] tablet by mouth 2 times daily 09/04/2022 [id number] sorb, PF, 0.5-1-0.5 % SOLN Instill 1 [...] Progress Notes * Shelby Higgins, RN - 07/30/2023 2:31 PM CDT JOSE Chalino Deng [id number] 07/30/2023 Diagnosis: Rheumatoid arthritis without rheumatoid factor, multiple sites (HCC) [M06.09]. Pt denies symptoms of infection or antibiotic use, no open wounds, or recent surgery, or plans for surgery in the next couple of weeks. Pt is aware that we use the 0-10 pain scale to assess discomfort. 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 front office secretary pt signs consent for treatment for this infusion. BP 139/87 Pulse 75 Temp 98.5 ??F Wt 98.5 kg (217 lb 3.2 oz) ?? SCHEDULED MEDICATIONS: ?? golimumab (Simponi Aria) 180 mg in 0.9% NaCl IV 100 mL infusion, Intravenous, Once ?? Number of 24 gauge 3/4 inch placed in Right antecubital ?? 1 attempt(s). Patient monitored throughout procedure. Last OV-05/23 Next OV-09/20 TB Gold-02/18 Hepatitis Screen-02/18 Last Routine Labs-02/19 Next Labs Due- 09/20 Tolerated well? Yes Next treatment? Q 8 weeks Shelby Higgins RN documented in this encounter Plan of Treatment Upcoming Encounters Date Type Department Care Team (Late st Contact Info) Description 06/03/2024 1:00 PM ADMINISTRATIVE LAW JUDGE Appointment [facility] - Rheumatology [address] [place] [address] [phone] 06/03/2024 2:00 PM ADMINISTRATIVE LAW JUDGE Office Visit [facility] - Rheumatology [address] [place] [address] Gloria Smith MD [address] [place] [phone] documented as of this encounter Visit Diagnoses [...] 30 Minutes, Intravenous, ONCE, 1 dose, On Sun07/30/23 at 1415, Use in-line low protein binding 0.22 micrometer filter. $ New Bag/Syringe 07/30/2023 2:23 PM CDT 180 mg 200 mL/hr documented in this encounter Care Teams Mixing Machine Tender Cork Gasket Relationship Specialty Start Date End Date Tomas Hyman MD [address] [address] [address] [place] [address] PCP - General Family Medicine 09/05/18 Isidro Heredia MD Rheumatology 02/09/11 documented as of this encounter
--- OUTSIDE RECORDS SUMMARY | 2024-05-03 04:03 | XMS_ITS | Encounter Summary ---
Author Organization [facility] Address [address] [facility] [place] [address] Care Team Providers Care Figure Model Name Role Phone Isidro Heredia MD Unavailable Tomas Hyman MD Primary Care Provider [phone] Reason for Visit * Treatment (Elective) - Closed Specialty Diagnoses / Procedures Referred By Lawrence shah Referred To Contact Diagnoses Rheumatoid arthritis without rheumatoid factor, multiple sites (HCC) Procedures [place] GOLIMUMAB FOR IV USE 1MG Gloria Smith MD [address] [place] [address] [address] Referral ID Status Reason Start Date Expiration Date Visits Re quested Visits Authorized [id number] Closed 05/18/2023 04/29/2024 8 8 Encounter Details Date Type Department Care Team (Late st Contact Info) Description 11/23/2023 10:52 AM CDT - 11/23/2023 11:59 PM CDT Hospital Encounter [facility] Medical [facility] - Rheumatology [address] [place] [address] Gloria Smith MD [address] [place] [address] Rheumatology Discharge Disposition: Home or [...] Sign Reading Time Taken Comments Blood Pressure 127/83 11/23/2023 11:17 AM CDT Pulse 72 11/23/2023 11:17 AM CDT Temperature 36.8 ??C (98.3 ??F) 11/23/2023 1 1:17 AM CDT Respiratory Rate - - Oxygen Saturation - - Inhaled Oxygen Concentration - - Weight 100.6 kg (221 lb 12.8 oz) 2023 11:17 AM CDT Height - - Body Mass Index 31.82 09/18/2023 3:34 PM CDT documented in this encounter Discharge Instructions * Discharge Instructions* Shelby Higgins RN - 11/23/2023 11:21 AM CDT Discharge Instructions [facility] Rheumatology You have received your infusion [...] through Sunday 9-5 call the office at [phone]. After hours or on the weekend call [...] tablet by mouth 2 times daily 09/04/2022 voyllsbhstx-ldzu-pfcm sorb, PF, 0.5-1-0.5 % SOLN Instill 1 [...] Progress Notes * Shelby Higgins, RN - 11/23/2023 11:21 AM CDT JOSE Deng [id number] 11/23/2023 Diagnosis: Rheumatoid arthritis without rheumatoid factor, multiple sites (HCC) [M06.09]. Pt denies symptoms of infection or antibiotic use, no open wounds, or recent surgery, or plans for surgery in the next couple of weeks. Pt is aware that we use the 0-10 pain scale to assess discomfort. 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 front end developer javascript html css pt signs consent for treatment for this infusion. BP 127/83 Pulse 72 Temp 98.3 ??F Wt 100.6 kg (221 lb 12.8 oz) SCHEDULED MEDICATIONS: golimumab (Simponi Aria) 200 mg in 0.9% NaCl IV 100 mL infusion, Intravenous, Once Number of 24 gauge 3/4 inch placed in Left antecubital 1 attempt(s). Patient monitored throughout procedure. Last OV-09/20 Next OV-02/20 TB Gold-n/a Hepatitis Screen-n/a Last Routine Labs-09/20 Next Labs Due-02/20 Tolerated well? Yes Next treatment? Q 8 weeks Shelby Higgins RN documented in this encounter Plan of Treatment Upcoming Encounters Date Type Department Care Team (Late st Contact Info) Description 06/03/2024 1:00 PM ORTHODONTIC TECHNICIAN ASSISTANT Appointment [facility] - Rheumatology [address] [place] [address] [phone] 06/03/2024 2:00 PM ORTHODONTIC TECHNICIAN ASSISTANT Office Visit [facility] - Rheumatology [address] [place] [address] [phone] Gloria Smith MD [address] [place] [phone] documented as of this encounter Visit Diagnoses [...] 30 Minutes, Intravenous, ONCE, 1 dose, On Sun11/23/23 at 1145, 2 mg/kg, dose rounded from 201mg to prevent waste. Use in-line low protein binding 0.22 micrometer filter. $ New Bag/Syringe 11/23/2023 11:31 AM CDT 200 mg 200 mL/hr documented in this encounter Care Teams Figure Model Relationship Specialty Start Date End Date Tomas Hyman MD [address] [place] [address] PCP - General Family Medicine 09/05/18 Isidro Heredia MD Rheumatology 02/09/11 documented as of this encounter
--- OUTSIDE RECORDS SUMMARY | 2024-05-03 04:03 | XMS_ITS | Encounter Summary ---
Author Organization [facility] Address [address] [place] [address] Care Team Providers Care Slot Ambassador Name Role Phone Isidro Heredia MD Unavailable [phone] Tomas Hyman MD Primary Care Provider [phone] Encounter Details Date Type Department Care Team (Late Contact Info) Description 07/20/2023 Orders Only [facility] - Rheumatology [address] [place] [address] Gloria Smith MD [address] [place] [phone] Rheumatoid arthritis of multiple sites with [...] (Late Contact Info) Description 06/03/2024 1:00 PM AUDIO VISUAL COLLECTIONS COORDINATOR Appointment [facility] - Rheumatology [address] [place] [address] 06/03/2024 2:00 PM AUDIO VISUAL COLLECTIONS COORDINATOR Office Visit [facility] - Rheumatology [address] [place] [phone] Gloria Smith MD [address] [place] [address] documented as of this encounter Visit Diagnoses Diagnosis 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) documented in this encounter Care Teams Slot Ambassador Relationship Specialty Start Date End Date Tomas Hyman MD [address] [place] [address] PCP - General Family Medicine 09/05/18 Isidro Heredia MD Rheumatology 02/09/11 documented as of this encounter
--- OUTSIDE RECORDS SUMMARY | 2024-05-03 04:03 | XMS_ITS | Encounter Summary ---
Author Organization [facility] Address [address] [place] [address] Care Team Providers Care Color Tester Name Role Phone Isidro Heredia MD Unavailable [phone] Tomas Hyman MD Primary Care Provider [phone] Encounter Details Date Type Department Care Team (Latest Contact Info) Description 01/29/2024 Travel Social History Tobacco Use Types Packs/Day [...] st Contact Info) Description 06/03/2024 1:00 PM HELP DESK SPECIALIST Appointment [facility] Medical [facility] - Rheumatology [address] [place] [address] 06/03/2024 2:00 PM HELP DESK SPECIALIST Office Visit [facility] Medical [facility] - Rheumatology [address] [place] [address] Gloria Smith MD [address] [place] [phone] documented as of this encounter Visit Diagnoses Not on filedocumented in this encounter Care Teams Color Tester Relationship Specialty Start Date End Date Tomas Hyman MD [address] [place] [address] PCP - General Family Medicine 09/05/18 Isidro Heredia MD Rheumatology 02/09/11 documented as of this encounter
--- OUTSIDE RECORDS SUMMARY | 2024-05-03 04:03 | XMS_ITS | Encounter Summary ---
Author Organization [facility] Address [address] [place] [address] Care Team Providers Care Bag Cutter Name Role Phone Isidro Heredia MD Unavailable [phone] Tomas Hyman MD Primary Care Provider [phone] Reason for Referral * OP/Amb RFL Auth (Routine) - Pending Review Specialty Diagnoses / Procedures Referred By Contsarahi t Referred To Contact Diagnoses Right shoulder pain, unspecified chronicity Procedures NE DRAIN/INJECT LARGE JOINT/BURSA Gloria Smith MD [address] [place] [phone] Referral ID Status Reason Start Date Expiration Date V isits Requested Visits Authorized [id number] Pending Review 09/18/2023 09/17/2024 1 1 Reason for Visit * Reason Comments Follow-up Osteopenia Encounter Details Date Type Department Care Team (Late st Contact Info) Description 09/18/2023 3:40 PM CDT Office Visit [facility] - Rheumatology [address] [place] [address] Gloria Smith MD [address] [place] [phone] 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) (Primary Dx); Right shoulder pain, unspecified chronicity Social History Tobacco Use Types Packs/Day Years Used Date Smoking Tobacco: Never Passive Smoke Exposure: Never Smokeless Tobacco: Never Tobacco Cessation:Counseling Given: No Alcohol Use Standard Drinks/Week Comments No 0 [...] Sign Reading Time Taken Comments Blood Pressure 125/64 09/18/2023 3:34 PM CDT Pulse 95 09/18/2023 3:34 PM CDT Temperature - - Respiratory Rate 16 09/18/2023 3:34 PM CDT Oxygen Saturation - - Inhaled Oxygen Concentration - - Weight 99.3 kg (219 lb) 09/18/2023 3:34 PM CDT Height 177.8 cm (5' 10 ) 09/18/2023 3:34 PM CDT Body Mass Index 31.42 09/18/2023 3:34 PM CDT documented in this encounter Progress Notes * Gloria Smith MD - 09/18/2023 4:04 PM CDT CHIEF COMPLAINTS: Follow-up on rheumatoid arthritis HISTORY OF PRESENT ILLNESS: Chalino Deng is a 62 year old white male with past medical history of seropositive rheumatoid arthritis, retinal detachment status post surgery, diverticulitis, sepsis on Actemra, recurrent UTIs, recurrent prostatitis, chronic back pain and lumbar stenosis and spondylosis status post epidural injections, basal cell carcinoma 2023 status post radiation, history of shingles, who returns for follow-upon rheumatoid arthritis. (Raquel 1:160, ccp 22+ in 2009, rf 10.2) Last seen May 29, 2023. Held mtx for 2 months and restarted it 2 weeks ago. Completed 8-week course of radiation 2 weeks ago. More pain and swelling in hands. Denies recent infection. Medication history: mtx 2004-06/2020, inadequate, 10/2020-present simponi 10/2020-05/2021, inadequate, 06/2022-present Humira 06/2021-05/2022, no effect SSZ 08/2020, GI SEs AZA 06/2020-08/2020, GI SEs Remicade 10/2004-08/02/2005 lost efficacy. Resumed in February, - 09/2020, recurrent prostatitis, inadequate Orencia 09/13/2005-11/22/2005 allergic reaction Rituxan 12/06/2005-05/01/2006, inadequate response, Humira 08/13/2006, effective. No details. actemra ?- 2018, urosepsis. History of diverticulitis Leflunomide, not available at the pharmacy RA: Patient was diagnosed of rheumatoid arthritis in early when he was in the . Triedinfliximab for couple of years with great efficacy but it lost efficacy. Tried Orencia, Humira, rituximab. They either lost efficacy or caused reaction. Infliximab was restarted in February, with good effect again. Has pain and swelling in MCP, PIP joints, pain and stiffness in hands shoulders, knees, ankles, toes. Takes gabapentin, muscle relaxant, naproxen daily for joint pain and neuralgia from shingles. According to the notes, patient had small erosions in MCP joints on x-ray in 2004. PAST MEDICAL HISTORY: Past Medical History: Diagnosis Date RA (rheumatoid arthritis) ([facility]) Past Surgical History: Procedure Laterality Date Tonsillectomy at 9 years old ALLERGIES: Allergies Allergen Reactions Simvastatin GI Discomfort Hydroxychloroquine Eye Discomfort Plaquenil [Hydroxychloroquine Sulfate] Eye vision disturbance Tuberculin Other Tuberculin Ppd Positive , CXR yrly Dx inactive TB SOCIAL HISTORY: Social History Tobacco Use Smoking Status Never Passive exposure: Never Smokeless Tobacco Never Social History Substance and Sexual Activity Alcohol Use No Social History Substance and Sexual Activity Drug Use Never FAMILY HISTORY: Family History Problem Relation Name Age of Onset Other Mother aneursym Hypertension Mother Stroke Mother Other Father asbestos exposure Heart Failure Father REVIEW OF SYSTEM: A complete review of systems is negative except as per HPI. PHYSICAL EXAM: BP 125/64 Pulse 95 Resp 16 Ht 1.778 m (5' 10 ) Wt 99.3 kg (219 lb) General: in no acute distress. HEENT: anicteric sclera, no conjunctival injection, PERRL, no oral ulcers. Neck: supple, nontender, no lymphadenopathy Chest: nontender. Abdomen: soft, nontender Extremities: no peripheral swelling, clubbing or cyanosis Neurologic: Moves all extremities MSK: Tenderness and mild swelling in wrists, mcp pip, tenderness in shoulders, ankles. LABORATORY: Recent Labs Component Name 09/17/23 1454 07/12/23 1520 05/29/23 1435 01/30/23 1158 WBC 8.5 6.8 8.7 9.1 RBC 4.11* 4.36 3.90* 3.94 HGB 12.7* 13.5 12.1* 12.0 HCT 37.0* 39.9 36.4* 38.5 MCV 90 92 93.3 97.7 MCHC 34.3 33.8 33.2 31.2 PLTCOUNT 181 184 195 151* MONOCYTPCT 8 6 9.3 6.8 EOSINPCT 4 3 4.0 7.3* LYMPHABS 3.2* 2.5 2.42 3.02 MONOCYTABS 0.6 0.4 0.81 0.62 BASOABS 0.1 0.1 0.07 0.10* IMMGRANSABS 0.0 0.0 - 0.02 Recent Labs Component Name 09/17/23 1454 07/12/23 1520 05/29/23 1435 SODIUM 137 138 136 POTASSIUM 3.9 4.5 4.7 CHLORIDE 99 99 99 CO2 23 25 28 BUN 13 18 15 CREATININE 1.01 1.11 1.01 GLUCOSE 101* 89 107* CALCIUM 9.5 9.5 9.2 ALBUMIN 4.4 4.4 3.8 ALKPHOS 58 58 64 ALT 16 17 16 AST 21 21 19 TBIL 0.7 0.7 0.5 TPROT 6.9 6.8 6.9 EGFR 85 76 85* Recent Labs Component Name 05/29/23 1435 11/29/22 0911 02/08/21 1645 CRP 0.49 <0.20 <1 Recent Labs Component Name 05/29/23 1435 11/29/22 0911 02/08/21 1645 SEDRATE 23* 11 5 PROCEDURE: Procedure Name: Right shoulder steroid injection Indication: Pain Side: Right Approach: Posterior Date of procedure: 09/18/2023 Informed Consent and Counseling: The procedure, risks, and benefits were thoroughly explained to the patient. The option of not having the procedure was offered. An informed consent was obtained. PROCEDURE: The appropriate timeout was taken. The incision site was determined and marked. The area was prepped in the usual sterile fashion and the skin cleaned using chlorhexidine. Local anesthesia was achieved with Ethyl Chloride spray. A mixture of 1 ml of Lidocaine 1% and DepoMedrol (Methylprednisolone) 40 mg was injected into the joint using a 25-g x 1 1/2-in needle. Gentle aspiration before injectiondidn???t show any blood. A dressing was applied to the area. The patient tolerated the procedure well without complications.The standard post-procedure care was explained. ASSESSMENT & PLAN: Current medication: Simponi 180mg infusion q8wk, MTX 15mg weekly, folic acid 1mg, prednisone 5 mg bid, Celebrex 200 mg b.i.d. 62 year old white male with: Seropositive rheumatoid arthritis -- shoulder injection has been helpful Osteoporosis Chronic back pain and lumbar radiculopathy High-risk medication -- Monitoring for toxicity of MTX with lab tests: CBC and CMP every 3 months to monitor bone marrowfunction, liver function and kidney function. (Raquel 1:160, ccp 22+ in 2009, rf 10.2, esr-, crp) Follow-up for rheumatoid arthritis. Simponi has been effective but it lasts less than 8 weeks. RA flaring holding methotrexate for a month. Next Simponi due next week. Mild synovitis in hands onexam. Diffuse joint tenderness. -- Chronic pain is secondary to rheumatoid arthritis, osteoarthritis. Rheumatoid arthritis - status post right shoulder steroid injection. - continue Simponi infusion - consider increasing simponi to 200mg. Patient did have basal cell carcinoma - continue methotrexate, low-dose prednisone, Celebrex - labs in 3 months - return to clinic in 4-5 months Chronic neck and back pain - follows with Pain Management and receives epidural injections. Had declined lumbar surgery. - continue tizanidine to 4 mg b.i.d. p.r.n.. Osteoporosis - on chronic prednisone - DEXA 06/2019: T score -1.2 in L spine, -1.2 in femoral neck, -0.6 in total hip - had recent DEXA bone density scan with PCP and will forward results to us. - took alendronate from [id number]. - takes otc vit D daily. ORDERS: 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) (Primary) - CBC WITH DIFFERENTIAL; Future - COMPREHENSIVE METABOLIC PANEL; Future - ERYTHROCYTE SEDIMENTATION RATE; Future - C-REACTIVE PROTEIN; Future - lidocaine PF (Xylocaine MPF) 1 % injection 5 mL - methylPREDNISolone acetate (DEPO-Medrol) injection 40 mg There are no discontinued medications. There are no Patient Instructions on file for this visit. Return in about 4 months (around 01/19/2024). documented in this encounter Plan of Treatment Upcoming Encounters Date Type Department Care Team (Late st Contact Info) Description 06/03/2024 1:00 PM WELFARE OFFICER Appointment [facility] - Rheumatology [address] [place] [address] [phone] 06/03/2024 2:00 PM WELFARE OFFICER Office Visit [facility] - Rheumatology [address] [place] [address] [phone] Gloria Smith MD [address] [place] [address] [phone] Scheduled Orders Name Type Priority Associated Diagnoses Orde r Schedule CBC WITH DIFFERENTIAL Lab Routine 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) Expected: 12/10/2023, Expires: 10/18/2024 COMPREHENSIVE METABOLIC PANEL Lab Routine 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) Expected: 12/10/2023, Expires: 10/18/2024 ERYTHROCYTE SEDIMENTATION RATE Lab Routine 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) Expected: 12/10/2023, Expires: 10/18/2024 C-REACTIVE PROTEIN Lab Routine 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) Expected: 12/10/2023, Expires: 10/18/2024 documented as of this encounter Visit Diagnoses Diagnosis 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)- Primary Right shoulder pain, unspecified chronicity documented in this encounter Administered Medications Inactive Administered Medications - up to 3 most recent administrations Medication Order MAR Action Action Date Dose Rate Site lidocaine PF (Xylocaine MPF) 1 % injection 5 mL 5 mL, Intra-articular, ONCE, 1 dose, On Sun09/18/23 at 1700 $ Given 09/18/2023 4:33 PM CDT 5 mL Ri ght Shoulder methylPREDNISolone acetate (DEPO-Medrol) injection 40 mg 40 mg, Intra-articular, ONCE, 1 dose, On Sun09/18/23 at 1700 $ Given 09/18/2023 4:48 PM CDT 40 mg Ri ght Shoulder documented in this encounter Care Teams Bag Cutter Relationship Specialty Start Date End Date Tomas Hyman MD [address] [place] [address] PCP - General Family Medicine 09/05/18 Isidro Heredia MD Rheumatology 02/09/11 documented as of this encounter
--- OUTSIDE RECORDS SUMMARY | 2024-05-03 04:03 | XMS_ITS | Encounter Summary ---
Author Organization [facility] Address [address] [facility] [place] [address] Care Team Providers Care Polymer Engineer Name Role Phone Isidro Heredia MD Unavailable [phone] Tomas Hyman MD Primary Care Provider [phone] Reason for Visit * Reason Comments Rheumatoid Arthritis Encounter Details Date Type Department Care Team (Late st Contact Info) Description 02/08/2024 11:40 AM CDT Office Visit [facility] - Rheumatology [address] [place] [address] Gloria Smith MD [address] [place] [phone] 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) (Primary Dx) Social History Tobacco Use Types Packs/Day Years [...] Sign Reading Time Taken Comments Blood Pressure 111/70 02/08/2024 11:48 AM CDT Pulse 76 02/08/2024 11:48 AM CDT Temperature - - Respiratory Rate - - Oxygen Saturation - - Inhaled Oxygen Concentration - - Weight 101.2 kg (223 lb) 02/08/2024 11:48 AM CDT Height 177.8 cm (5' 10 ) 02/08/2024 11:48 AM CDT Body Mass Index 32 02/08/2024 11:48 AM CDT documented in this encounter Patient Instructions * Patient Instructions* Gloria Smith MD - 02/08/2024 12:30 PM CDT Skip 1 dose of methotrexate on 02/10. Then restart methotrexate the following Sunday. documented in this encounter Progress Notes * Gloria Smith MD - 02/08/2024 12:15 PM CDT CHIEF COMPLAINTS: Follow-up on rheumatoid arthritis HISTORY OF PRESENT ILLNESS: Chalino Deng is a 63 year old white male with past medical history of seropositive rheumatoid arthritis, retinal detachment status post surgery, diverticulitis, sepsis on Actemra, recurrent UTIs, recurrent prostatitis, chronic back pain and lumbar stenosis and spondylosis status post epidural injections, basal cell carcinoma 2023 status post radiation, history of shingles, who returns for follow-upon rheumatoid arthritis. (Raquel 1:160, ccp 22+ in 2009, rf 10.2) Last seen September 18, 2023. Had a bad fall down stairs a month ago. Left leg swollen, bruising. A week ago felt sick, no appetite, n/v. Afebrile. Hospitalized Sunday. CT abd unremarkable. Received IV fluids. Feels better. Still nauseated. Takes zofran. Some pain, swelling in both hands MCP joints and fingers about a week before last and Simponi infusion. Feels better now after Simponi on January 29, 2024. Denies recent infection. Medication history: mtx 2004-06/2020, [...] Medical History: Diagnosis Date RA (rheumatoid arthritis) ([facility]) Past Surgical History: Procedure Laterality Date Tonsillectomy [...] except as per HPI. PHYSICAL EXAM: BP 111/70 Pulse 76 Ht 1.778 m (5' 10 ) Wt 101.2 kg (223 lb) General: in no acute distress. HEENT: anicteric sclera, no conjunctival injection, PERRL, no oral ulcers. Neck: supple, nontender, no lymphadenopathy Chest: nontender. Abdomen: soft, nontender Extremities: no peripheral swelling, clubbing or cyanosis Neurologic: Moves all extremities MSK: Mild tenderness and swelling in mcps worse on right. Mild bruising, swelling in left leg with mild skin scars. LABORATORY: Recent Labs Component Name 01/29/24 1037 09/17/23 1454 07/12/23 1520 05/29/23 1435 01/30/23 1158 WBC 12.7* 8.5 6.8 - 9.1 RBC 3.89* 4.11* 4.36 - 3.94 HGB 12.0* 12.7* 13.5 - 12.0 HCT 36.7* 37.0* 39.9 - 38.5 MCV 94.3 90 92 - 97.7 MCHC 32.7 34.3 33.8 - 31.2 PLTCOUNT 212 181 184 - 151* MONOCYTPCT 6.8 8 6 - 6.8 EOSINPCT 4.4 4 3 - 7.3* LYMPHABS 3.78 3.2* 2.5 - 3.02 MONOCYTABS 0.86 0.6 0.4 - 0.62 BASOABS 0.07 0.1 0.1 - 0.10* IMMGRANSABS - 0.0 0.0 - 0.02 - = values in this interval not displayed. Recent Labs Component Name 01/29/24 1037 09/17/23 1454 07/12/23 1520 SODIUM 133* 137 138 POTASSIUM 3.6 3.9 4.5 CHLORIDE 101 99 99 CO2 29 23 25 BUN 11 13 18 CREATININE 1.06 1.01 1.11 GLUCOSE 117* 101* 89 CALCIUM 9.5 9.5 9.5 ALBUMIN 4.0 4.4 4.4 ALKPHOS 59 58 58 ALT 20 16 17 AST 28 21 21 TBIL 0.9 0.7 0.7 TPROT 7.2 6.9 6.8 EGFR 80* 85 76 Recent Labs Component Name 05/29/23 1435 11/29/22 0911 02/08/21 1645 CRP 0.49 <0.20 <1 Recent Labs Component Name 05/29/23 1435 11/29/22 0911 02/08/21 1645 SEDRATE 23* 11 5 PROCEDURE: ASSESSMENT & PLAN: Current medication: Simponi 200mg infusion q8wk, MTX 15mg weekly, folic acid 1mg, prednisone 5 mg bid, Celebrex 200 mg b.i.d. 63 year old white male with: Seropositive rheumatoid [...] but it lasts less than 8 weeks. Methotrexate also with partial effect. Had a recent fall a month ago with left leg bruising and swelling. Symptoms are improving. No fracture. Advised patient to apply heat. Having probable viral infection with nausea, poor appetite. Normal CT abdomen. Advised patient to keep well hydrated. Will hold 1 dose of methotrexate on Sunday and restart the following week. -- Chronic pain is secondary to rheumatoid arthritis, osteoarthritis. Rheumatoid arthritis - continue Simponi infusion - continue methotrexate, low-dose prednisone, Celebrex - [...] results to us. - took alendronate from [id number]. - takes otc vit D daily. ORDERS: 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) (Primary) - CBC WITH DIFFERENTIAL - COMPREHENSIVE METABOLIC PANEL - ERYTHROCYTE SEDIMENTATION RATE - C-REACTIVE PROTEIN There are no discontinued medications. Patient Instructions Skip 1 dose of methotrexate on 02/10. Then restart methotrexate the following Sunday. No follow-ups on file. documented in this encounter Plan of Treatment Upcoming Encounters Date Type Department Care Team (Late st Contact Info) Description 06/03/2024 1:00 PM CUSTOMER ENGAGEMENT SPECIALIST Appointment [facility] - Rheumatology [address] [place] [phone] 06/03/2024 2:00 PM CUSTOMER ENGAGEMENT SPECIALIST Office Visit [facility] - Rheumatology [address] [place] [phone] Gloria Smith MD [address] [place] [phone] Scheduled Orders Name Type Priority Associated Diagnoses Orde r Schedule CBC WITH DIFFERENTIAL Lab Routine 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) Ordered: 02/08/2024 COMPREHENSIVE METABOLIC PANEL Lab Routine 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) Ordered: 02/08/2024 ERYTHROCYTE SEDIMENTATION RATE Lab Routine 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) Ordered: 02/08/2024 C-REACTIVE PROTEIN Lab Routine 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) Ordered: 02/08/2024 documented as of this encounter Visit Diagnoses Diagnosis 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)- Primary documented in this encounter Administered Medications Administered Medications Medication Order MAR Action Action Date Dose Rate Site PPD Given 03/22/1987 documented in this encounter Care Teams Polymer Engineer Relationship Specialty Start Date End Date Tomas Hyman MD [address] [facility] [facility] [address] [place] [address] PCP - General Family Medicine 09/05/18 Isidro Heredia MD Rheumatology 02/09/11 documented as of this encounter
--- OUTSIDE RECORDS SUMMARY | 2024-05-03 04:03 | XMS_ITS | Encounter Summary ---
Author Organization [facility] Address [address] [facility] [place] [address] Care Team Providers Care Concreter Name Role Phone Isidro Heredia MD Unavailable [phone] Tomas Hyman MD Primary Care Provider [phone] Reason for Visit * Reason Onset Date Comments MEDICATION REFILL 07/04/2023 Encounter Details Date Type Department Care Team (Late st Contact Info) Description 07/04/2023 Refill [facility] - Rheumatology [address] [place] [address] Gloria Smith MD [address] [place] [phone] MEDICATION REFILL Social History Tobacco Use [...] encounter Miscellaneous Notes * Telephone Encounter - Dixie Beard LPN - 07/04/2023 3:12 PM STAB SETTER AND DRILLER NON-BIOLOGIC REFILL REQUEST Last OV: 05/29/2023 Next Appointment: 09/18/2023 Last Fill: 11/28 Recent Labs Component Name 05/29/23 1435 01/30/23 1158 11/29/22 0911 WBC 8.7 9.1 7.0 HGB 12.1* 12.0 11.5* PLTCOUNT 195 151* 160 MCV 93.3 97.7 94.7 Recent Labs Component Name 05/29/23 1435 01/30/23 1158 11/29/22 0911 CREATININE 1.01 0.97 0.95 BUN 15 17 15 SODIUM 136 136 138 POTASSIUM 4.7 4.9 4.0 Recent Labs Component Name 05/29/23 1435 01/30/23 1158 11/29/22 0911 07/27/21 1107 02/08/21 1645 10/19/20 1540 08/24/20 1233 EGFR 85* 89* >90 - 71 >60 >60 EGFRAFR - - - - 82 >60 >60 - = values in this interval not displayed. Recent Labs Component Name 05/29/23 1435 01/30/23 1158 11/29/22 0911 AST 19 24 21 ALT 16 20 16 ALKPHOS 64 62 49 TBIL 0.5 0.5 0.6 Last ESR: Recent Labs Component Name 05/29/23 1435 11/29/22 0911 02/08/21 1645 SEDRATE 23* 11 5 Last 3 CRP: Recent Labs Component Name 05/29/23 1435 11/29/22 0911 02/08/21 1645 CRP 0.49 <0.20 <1 SETTER AND DRILLER documented in this encounter Plan of Treatment Upcoming Encounters Date Type Department Care Team (Late st Contact Info) Description 06/03/2024 1:00 PM STAB SETTER AND DRILLER Appointment [facility] - Rheumatology [address] [place] [phone] 06/03/2024 2:00 PM STAB SETTER AND DRILLER Office Visit [facility] - Rheumatology [address] [place] [phone] Gloria Smith MD [address] [place] [phone] documented as of this encounter Visit Diagnoses Diagnosis 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) Neuropathy Mononeuritis of unspecified site documented in this encounter Care Teams Concreter Relationship Specialty Start Date End Date Tomas Hyman MD [address] [place] [address] PCP - General Family Medicine 09/05/18 Isidro Heredia MD Rheumatology 02/09/11 documented as of this encounter
--- OUTSIDE RECORDS SUMMARY | 2024-05-03 04:03 | XMS_ITS | Referral Summary ---
Author Organization [facility] Address [address] [place] [address] Care Team Providers Care Drywall Foreman Name Role Phone Isidro Heredia MD Unavailable [phone] Tomas Hyman MD Primary Care Provider [phone] Source Comments [facility],non-owned Affiliates and Associated Physician Practices is amultiple site organization consisting of ambulatory clinics and hospital sitesin [place], [place], [place] and [place]. This disclosure is being madepursuant to the Care Everywhere program and may not contain all information available regarding this patient. Last updated 18.[facility] Encounters Date Type Department Care Team Description 04/04/2024 9:45 AM COOKER SULFATE - 04/04/2024 11:59 PM COOKER SULFATE Hospital Encounter [facility] Rheumatology [address] [place] [address] Gloria Smith MD Rheumatology Discharge Disposition: Home or Self Care 02/16/2024 Refill [facility] Rheumatology [address] [place] [address] Gloria Smith MD MEDICATION REFILL 02/08/2024 11:40 AM CDT Office Visit [facility] Rheumatology [address] [place] [phone] Gloria Smith MD 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) (Primary Dx) from Last 3 Months Allergies Active Allergy Reactions Criticality Noted Date [...] tablet by mouth once daily Seasonal (nov Active Multiple Vitamin (MULTI-VITAMIN PO) Take 1 [...] medication agreement signed 11/06/2012 Overview (11/06/2012): In legal mediator dated 10/14/12 Chronic pain syndrome 12/11/2011 Subacromial bursitis 09/04/2011 Anemia 08/30/2009 Osteopenia 08/24/2008 Overview (09/14/2014): Start date 08/13/2007 CT Bone Densitometry GERD (gastroesophageal reflux disease) 9 Rheumatoid arthritis of 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 factor 07/21/2008 Overview (03/07/2015): Dx start date 06/2004, Remicade 10/2004-08/02/2005 inadequate response, Orencia 09/13/2005-11/22/2005 inadequate response, Rituxan 12/06/2005-05/01/2006, Humira 08/13/2006, Methotrexate 08/2004- 02/08/2013 , Xray hands 2004 - shows scattered tiny erosions in MCP joints. Immunizations Name Administration Dates Next Due Our[facility]Mate primary monoval ent 12+ yr 0.3mL Purple cap 03/22/2021,07/19/2020,06/28/2020 HEP A VACCINE, ADULT 04/08/1997 INFLUENZA 02/18/2020,03/04/2019,01/30/2011 INFLUENZA VACCINE, CELL CULT URE, QUADR. (FLUCELVAX QUADRIVALENT; 6MO+) (CCIIV4) 02/18/2020,03/04/2019 INFLUENZA VACCINE, QUADR. (A FLURIA, FLUZONE QUADRIVALENT; 6MO+) (IIV4) 03/04/2009,04/14/2008,03/17/2005,2004 POLIO OPV 10/06/1987 Td (Adult), 2 Lf Tetanus Tox oid, Adsorbed, Pf 01/19/2003,01/11/1993 YELLOW FEVER 03/12/1990 Zoster Hzv Vacc Recombinant Inj Im 02/18/2020 Social History Tobacco Use Types Packs/Day Years [...] Comments Blood Pressure 144/83 04/04/2024 10:23 AM COOKER SULFATE Pulse 82 04/04/2024 10:23 AM COOKER SULFATE Temperature 36.8 ??C (98.2 ??F) 04/04/2024 1 0:23 AM COOKER SULFATE Respiratory Rate 16 09/18/2023 3:34 PM CDT Oxygen Saturation 100% 01/30/2023 10: 56 AM CDT Inhaled Oxygen Concentration - - Weight 106.4 kg (234 lb 9.6 oz) 024 10:23 AM COOKER SULFATE Height 177.8 cm (5' 10 ) 02/08/2024 11: 48 AM CDT Body Mass Index 33.66 02/08/2024 11:48 AM CDT Plan of Treatment Upcoming Encounters Date Type Department Care Team (Late st Contact Info) Description 06/03/2024 1:00 PM COOKER SULFATE Appointment [facility] - Rheumatology [address] [place] [address] 06/03/2024 2:00 PM COOKER SULFATE Office Visit [facility] - Rheumatology [address] [place] [phone] Gloria Smith MD [address] [place] [phone] Procedures Procedure Name Priority Date/Time Associated Diagnosis [...] 01/29/2024 6:08 PM CDT Performed at: ?? [place] [address] [place], [place] ??[id number] Woods Boss: [facility], Phone: ??[phone] Gloria Smith MD LAB - CHEMISTRY MARII ARAUJO [facility] INSURANCE BILL [address] [place] [address] * HEPATITIS SCREEN ACUTE ([facility]) (02/10/2022 9:46 [...] Resulting Agency Comment Lab Testing performed at: [facility] [address] [address] ?? [place] [phone] Gloria Smith MD LAB - CHEMISTRY MARII ARAUJO [facility] INSURANCE BILL [address] [place] [address] from Last 3 Months or Most Recently Relevant to Health Maintenance Administered Medications Care Teams Drywall Foreman Relationship Specialty Start Date End Date Tomas Hyman MD [address] [place] [address] PCP - General Family Medicine 09/05/18 Isidro Heredia MD Rheumatology 02/09/11
--- OUTSIDE RECORDS SUMMARY | 2024-05-03 04:04 | XMS_ITS | Encounter Summary ---
Author Organization [facility] Address [address] [facility] [place] [address] Care Team Providers Care Shaft Repairer Name Role Phone Isidro Heredia MD Unavailable [phone] Tomas Hyman MD Primary Care Provider [phone] Reason for Visit * Reason Onset Date Comments Medication Prior Auth Request 09/05/2022 Encounter Details Date Type Department Care Team (Late st Contact Info) Description 09/05/2022 Telephone [facility] Medical [facility] - Rheumatology [address] [place] [address] Gloria Smith MD [address] [place] [phone] Medication Prior Auth Request Social History Tobacco Use Types Packs/Day Years Used Date Smoking Tobacco: Never Smokeless Tobacco: Never Alcohol Use Standard Drinks/Week Comments No 0 (1 standard drink = 0.6 oz pur e alcohol) PHQ-2 Answer Date Recorded PHQ2 TOTAL SCORE 0 08/02/2022 Sex and Gender Information Value Date Recorded Sex Assigned at Not on file Gender Identity Not on file Sexual Orientation Not on file documented as of this encounter Miscellaneous Notes * Telephone Encounter - Carey Loza - 09/11/2022 8:51 AM CDT Appt made for 8 weeks from September * Telephone Encounter - Gloria Smith MD - 09/05/2022 3:36 PM CDT Please schedule simponi infusion at [facility] 8 weeks after his next infusion (10/04). documented in this encounter Plan of Treatment Upcoming Encounters Date Type Department Care Team (Late st Contact Info) Description 06/03/2024 1:00 PM TOE PUNCHER Appointment [facility] - Rheumatology [address] [place] [address] [phone] 06/03/2024 2:00 PM TOE PUNCHER Office Visit [facility] - Rheumatology [address] [place] [address] [phone] Gloria Smith MD [address] [place] [phone] documented as of this encounter Visit Diagnoses Not on filedocumented in this encounter Care Teams Shaft Repairer Relationship Specialty Start Date End Date Tomas Hyman MD [address] [place] [address] PCP - General Family Medicine 09/05/18 Isidro Heredia MD Rheumatology 02/09/11 documented as of this encounter
--- OUTSIDE RECORDS SUMMARY | 2024-05-03 04:04 | XMS_ITS | Encounter Summary ---
Author Organization [facility] Health Address [address] [place] [address] Care Team Providers Care Multimedia Production Assistant Name Role Phone Isidro Heredia MD Unavailable [phone] Tomas Hyman MD Primary Care Provider [phone] Encounter Details Date Type Department Care Team (Latest Contact Info) Description 03/03/2022 12:00 PM CDT - 03/03/2022 12:04 PM CDT Hospital Encounter [facility] [address] [place], [place] [id number] [place] [address] [facility] [address] [place] [address] Discharge Disposition: Home or Self Care Social History Tobacco Use Types Packs/Day Years Used Date Smoking Tobacco: Never Smokeless Tobacco: Never Alcohol Use Standard Drinks/Week Comments No 0 (1 standard drink = 0.6 oz pur e alcohol) PHQ-2 Answer Date Recorded PHQ2 TOTAL SCORE 2 02/10/2022 Sex and Gender Information Value Date Recorded Sex Assigned at Not on file Gender Identity Not on file Sexual Orientation Not on file documented as of this encounter Medications at Time of Discharge Medication Sig Dispensed Refills Start Date End Date aspirin EC (ECOTRIN) 81 MG tablet Take 1 (one) tablet by mouth once daily 90 tablet 11/14/2021 atorvastatin (LIPITOR) 40 MG tablet Take 1 (one) tablet by mouth at bedtime njumdjbggkc-cbmf-lo lysorb, PF, 0.5-1-0.5 % SOLN Instill 1 drop into both eyes 2 times daily carvedilol (COREG) 12.5 MG tablet Take 1 (one) tablet by mouth 2 times daily 07/13/2020 ferrous sulfate 325 (65 FE) MG tablet [...] tablet by mouth once daily Seasonal (nov adalimumab (HUMIRA) 40 MG/0.4ML injection Inject 0.4 mL subcutaneously every 14 days 8 kit 2 06/10/2021 11/29/2022 celecoxib (CeleBREX) 200 MG capsuleIndications: 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) Take 1 (one) capsule by mouth 2 times daily 180 capsule 02/28/2022 06/04/2022 folic acid (FOLVITE) 1 MG tablet Take 1 (one) tablet by mouth once daily 90 tablet 3 08/04/2021 09/03/2022 gabapentin (Neurontin) 300 MG capsuleIndications: Neuropathy Take 1 (one) capsule by mouth 3 times daily 270 capsule 03/01/2022 06/04/2022 methotrexate 2.5 MG tabletIndications:R heumatoid 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) Take 6 (six) tablets by mouth every 7 days 72 tablet 02/28/2022 06/04/2022 predniSONE (DELTASONE) 5 MG tabletIndications:R heumatoid 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) Take 1 (one) tablet by mouth 2 times daily 180 tablet 11/14/2021 06/04/2022 tiZANidine (Zanaflex) 4 MG tabletIndications:C hronic neck pain,Chronic back pain, unspecified back location, unspecified back pain laterality Take 1 (one) tablet by mouth 2 times daily as needed for Muscle Spasms 60 tablet 1 02/28/2022 06/04/2022 documented as of this encounter H&P Notes * Aldo Caldwell MD - 03/03/2022 12:55 PM CDT Images from the original note were not included. Chief Complaint(s): L5/S1 KIMBERLEY Right , severe, persistent and uncontrolled and worsening lower back and LE pain HPI: Depression Screening Thoughts that you would be better off or of hurting yourself in some way: Not at all , Total Score: 0 label= PHQ-9 propId= [id number] catId= [id number] encId= [id number] PHQ-9 Thoughts that you would be better off or of hurting yourself in some way Not at all Total Score 0 Pain Management PATIENT: Patient is a 59-year-old right handed CM with a history of low back and bilateral lower extremity pain, who has been treated by Dr. Mirza. Since April 2016. He was also treated by Dr. Barnett and under Comorbid health issues include rheumatoid arthritis-seropositive, diverticulitis, sepsis, recurrentUTIs, osteoporosis chronic back pain with radiculopathy, and chronic opioid use, no longer on opioids PAIN HISTORY: On intitial presentation the patient noted their pain was chronic intractable, severe, persistent, uncontrolled and worsening low back pain that was as severe as 8-10/10 daily. The pain started many years ago with no incitinge event and has been worsening over the last 6 months. The Pain is located low back across like a band and is radiating down the right leg into his foot. He has been doing stretching, HEP, inversion table The Patient describes the pain as aching, sharp, stabbing shooting pain The pain is made worse by bending, lifting, twisting. The pain is made better by nothing IMPRESSION/PLAN #Lumbar Radicular Syndrome -Symptoms in the Right L4 and L5 dermatome -Will order a L5/S1 KIMBERLEY Right for severe pain control - He is currently taking Gabapentin TID, Celebrex BID will continue these Pain is associated with decline in function and prevents the patient from doing enjoyable activities and limits their ability to perform their ADLs. Denies bowel, bladder incontinence, saddle anesthesia, progressive upper/lower extremity weakness, urinary retention. Prior Interventions Previous Interventional Treatments - 03/01/2022 L5/S1 KIMBERLEY Right - Last KIMBERLEY was L4/5 KIMBERLEY Left 11/[address] Barnett with > 50% pain releif. Conservative Patient reports pain treatments for this severe pain to include rest, ice, heat, prior PT, chiropractic treatments and HEP. Patient reports multiple medication trials without sustained relief including Tylenol, ibuprofen, naproxen, meloxicam, gabapentin, duloxetine, and oral steroids. Patient has undergone significant amounts of physical therapy in the past. They report last doing physical therapy for 6-8 weeks [address] Barnett. He continues with HEP, TENS therapy and inversion table on a daily basis. The patient has been engaged in an ongoing home exercise program supervised by their physician for over the last one year and learned in prior or ongoing physical therapy in the last one year and will continue to engage in the home exercise program for their painful condition listed above. Patient has verbalized understanding and has agreed that they will continue their home exercise program and will be supervised by this office including after this scheduled procedure/surgery for the foreseeable future. Imaging Studies Imaging/Studies (Personally reviewed) MRI results reviewed today-(DATED 07/03/2019) include L4-L5 moderate facet arthropathy, central canal stenosis and right neural foraminal stenosis. ===== lumbar MRI from February 17, 2017: Which included mild spondylosis at L5-S1, with a central rightward extrusion abutting the right S1 nerve root in the right lateral recess. There is severe bilateral facet arthropathy, with mild to moderate bilateral neural foraminal stenosis. At L4-L5, bulging withannular tear and mild bilateral facet arthropathy, as well as mild bilateral neural foraminal and central canal stenosis. L3-4, mild facet arthropathy, without foraminal or central stenosis. L1-2 andL2-3. He is minimal pathology, with the L2-3, having mild bilateral neural foraminal stenosis. Current Medication: Taking Humira Pen 40 MG/0.4ML Pen-injector Kit as directed Subcutaneous. CeleBREX 200 MG Capsule 1 capsule with food Orally Once a day. Alendronate Sodium 70 MG Tablet 1 tablet 30 minutes before the first food, beverage or medicine of the day with plain water Orally every 7 days. Gabapentin 300 MG Capsule 1 capsule Orally tid. Carvedilol 12.5 MG Tablet as directed Orally BID. Atorvastatin Calcium 40 MG Tablet 1 tablet Orally Once a day. Ecotrin Low Strength 81 MG Tablet Delayed Release as directed Orally. hydroCHLOROthiazide 25 MG Tablet 1 tablet in the morning Orally Once a day. Folic Acid 1 MG Tablet 1 tablet Orally Once a day. tiZANidine HCl 4 MG Tablet 1 tablet as needed Orally once a day. Ferrous Sulfate 325 (65 Fe) MG Tablet 1 tablet Orally Once a day. Glucosamine Chondr 1500 Complx - Capsule as directed Orally. Methotrexate 2.5 MG Tablet as directed Orally 6 tablets once a day. Ocuvite Adult Formula - Capsule as directed Orally. Magnesium 100 MG Tablet 4 tablets with a meal Orally Once a day. Multivitamin Adult - Tablet as directed Orally. Pantoprazole Sodium 40 MG Tablet Delayed Release 1 tablet Orally Once a day. predniSONE 10 MG Tablet 1 tablet Orally Once a day. Vascepa 1 GM Capsule 2 capsules with meals Orally Twice a day. Potassium 99 MG Tablet 1 tablet Orally Once a day. Refresh Dry Eye Therapy. Medication List reviewed and reconciled with the patient. Medical History: Rheumatoid arthritis HTN Slight aorta enlargement Allergies/Intolerance: Plaquenil TB Surgical History: Tonsils and adenoids Congenital anorchia (left testicle)-exploratory surgery Unilateral monorchia Right eye retina detatchement Cataracts bilateral Hospitalization: See Surgical Hx Family History: Father: Mother: Social History: Tobacco Use: Tobacco Use/Smoking Are you a nonsmoker Tobacco use other than smoking Are you an other tobacco user? No Drugs/Alcohol: Drugs Have you used drugs other than those for medical reasons in the past 12 months? No Alcohol Screen Did you have a drink containing alcohol in the past year? No Points 0 Interpretation Negative Miscellaneous: Marital status: . Occupation: disabled, retired. Household: Household Marital status: ROS: General/Constitutional severe pain, depressed mood related to pain label= Patient complaining of value= options= propid= 91 itemid= [id number] categoryid= [id number] encounterid= [id number] Patient complaining of severe pain,depressed mood related to pain. Constitutional: Denies- Fevers, chills, Night sweats, weight loss Ophthalmologic: Denies- double vission, blurred vision, pain, ENT: Denies- Hearing changes, Ear infection, Tinnitus, Sore throat Endocrine: Denies- low thyroid, high thyroid Respiratory: Denies- Difficulty breathing, shortness of breath at rest, Cardiovascular: Denies- chest pain at rest, chest pain with exertion, Gastrointestinal: Denies- Constipation, Diarrhea, Melena, Nausea, Vomiting Genitourinary: Denies- Burning or Difficulty urinating, Urinary retention, Incontinence Musculoskeletal: as Noted in HPI. Skin: Denies- Blistering of the skin Neurologic: as Noted in HPI. Psychiatric: Denies- Homicidal thoughts, Suicidal thoughts. Objective: Vitals: Ht 70 in, Wt 226 lbs, BMI 32.42 Index, ELADIA 52, SOAPP-R 7, Ht-cm 177.8 cm, Wt-kg 102.51 kg. Past Results: Examination: General Examination alert, oriented x 3, appears to be in pain based on postural changes and grimacing label= GENERAL APPEARANCE: categoryPropId= [id number] examid= [id number] GENERAL APPEARANCE: alert, oriented x 3, appears to be in pain based on postural changes and grimacing. NC/AT, Symmetrical. label= HEAD: categoryPropId= [id number] examid= [id number] HEAD: NC/AT, Symmetrical.. Hearing intact. label= EARS: categoryPropId= [id number] examid= [id number] EARS: Hearing intact. . Normal work of breathing label= RESPIRATORY: categoryPropId= [id number] examid= [id number] RESPIRATORY: Normal work of breathing. regular rate label= HEART: categoryPropId= [id number] examid= [id number] HEART: regular rate. no edema, no clubbing, no cyanosis label= EXTREMITIES: categoryPropId= [id number] examid= [id number] EXTREMITIES: no edema, no clubbing, no cyanosis. no rash or ulcers label= SKIN: categoryPropId= [id number] examid= [id number] SKIN: no rash or ulcers. Tone normal label= MUSCULOSKELETAL: categoryPropId= [id number] examid= [id number] MUSCULOSKELETAL: Tone normal. See below label= NEUROLOGIC: categoryPropId= [id number] examid= [id number] NEUROLOGIC: See below. CERVICAL SPINE EXAM: -Positive TTP C2/C3, C3/C4, C4/C5, C5/C6, C6/C7 facets and paraspinal muscles - limited ROM of the cervical spine due to pain on flexion, rotation and extension - + guarding and grimacing on exam - spurling neg obdulia ; - motor 4-5/5 Left UE prox and distal and symm - motor 4-5/5 Right UE prox and distal and symm - documentation consultant 4-5/5 Left UE and symm - documentation consultant 4-5/5 Right UE and symm - sensory intact and symm obdulia UE prox and distal - DTR 2/4 Left UE bicep, tricep, BR - DTR 2/4 Right UE bicep, tricep, BR - Blackburn negative in B/l UE LUMBAR SPINE EXAM: - Positive TTP on palpation of the bilateral lumbar facets L3/L4 thru L5/S1 worse with extension and lateral bending and rotation with facet loading; - Lumbar spine range of motion limited and decreased on extension and rotation and with lateral bending due to severe pain; - Positive TTP over the lumbar paraspinal muscles noted - + guardin and grimacing with exam of lumbar paraspinal muscles - SLR pos RIGHT - DTR 2/4 Left knees and ankles - DTR 2/4 Right knees and ankles - Negative clonus in b/l LE - sensory intact Left LE prox and distal - sensory intact Right LE prox and distal - Motor Left EHL, FHL, TA, Knee extension/flexion, Hip flexion 5/5 - Motor Right EHL, FHL, TA, Knee extension/flexion, Hip flexion 5/5 . Physical Examination: Therapeutic Interventions: Therapeutic Interventions: Assessment: Physical Therapy Assessment: Assessment: Radiculopathy, lumbar region - M54.16 (Primary) Radiculopathy, lumbosacral region - M54.17 Low back pain, unspecified - M54.50 Spinal stenosis, lumbar region with neurogenic claudication - M48.062 Chronic pain syndrome - G89.4 Plan: Treatment: Radiculopathy, lumbar region Notes: Presents for L5/S1 KIMBERLEY Right for severe pain control. Procedures: Immunizations: Therapeutic Injections: Diagnostic Imaging: Lab Reports: Procedure Orders: Preventive Medicine: Next Appointment: 4 Weeks (Reason: f/u p LESI) documented in this encounter OR Notes * Operative - Aldo Caldwell MD - 03/03/2022 12:56 PM CDT LESI: Procedure PROCEDURE: Lumbar Epidural steroid injection with fluoroscopic guidance at L5/S1 Right SURGEON: Aldo Caldwell MD PRE-OPERATIVE DIAGNOSIS: Lumbago with sciatica, unspecified side - M54.40 (Primary) Radiculopathy, lumbar region - M54.16 Radiculopathy, lumbosacral region - M54.17 Low back pain - M54.5 POST-OPERATIVE DIAGNOSIS: SAME PREP: CHLORAPREP ANESTHESIA: Local. FLUIDS: None. BLOOD LOSS: None. DRAINS: None. COMPLICATIONS: None. CONDITION POSTPROCEDURE: Stable. PROCEDURE INDICATION: Please refer to H/P. Risks, benefits, and alternatives were discussed including the risk of infection, bleeding, nerve damage, worsening pain, no pain relief whatsoever, transient increase in blood pressure, blood sugar,fluid retention, possibility of headaches, and possibility of shingles, meningitis, discitis, paralysis, permanent neurological injury, spinal cord trauma, loss of bowel and bladder function, epidural hematoma, epidural abscess, need for surgical intervention of the spine, . Procedure Report: Fluoroscopically Guided Lumbar Epidural Steroid Injection The patient was identified in the holding area and the operative permit was explained and signed. Ihave discussed with the patient the risks, benefits, side effects and complications of a fluoroscopically guided lumbar epidural steroid injection. I explained to patient that some or all of the medication used in the injection including but not limited to steroids are commonly used as off label medications including in the epidural space. I have answered the patients questions regarding the procedure and have given the patient the opportunity to refuse the procedure. I also have discussed alternative methods of treatment. The patient stated understanding of the procedure and wished to proceed with a fluoroscopically guided lumbar epidural steroid injection. The patient was taken to the fluoroscopic suite and placed on a C-arm table in the prone position. Noninvasive blood pressure and pulse oximetry were used to monitor the patient continuously throughout the procedure. A nurse was in attendance for the duration of the procedure to carefully monitor the patient. Please refer to the nursing record for vital sign documentation and for any doses of sedatives and medications. I was present and gave the order for any medications given to the patient. The lumbar area was then prepped and draped in the usual sterile fashion. The above mentioned interspace was identified and a local skin anesthesia was accomplished with 1cc of 1% Lidocaine via a 25 gauge needle. Subsequently an 20 gauge Tuohy needle was inserted and advanced under constant incremental lateral and AP fluoroscopic guidance toward the epidural space to ensure proper depth and anglethroughout. A loss of resistance technique with 1.0 cc of preservative free saline confirmed entrance into the epidural space. 1 cc of IV Contrast (if no contraindications) was easily injected after negative aspiration of CSF or blood. Excellent outlining of the epidural spcace was witnessed. The patient then received 2 cc of preservative free normal saline along with 1 cc preservative free 0.25%PF Marcaine and 40 mg of DepoMedrol (40mg/ml). The needles were removed intact. The patient tolerated the procedure well and there were no complications. The patient was taken to the recovery area. The patient remained in stable condition with no apparent complications. Postprocedure instructions were given to the patient and a follow up appointment was confirmed. The patient was also discharged with information on how to reach the clinic or fiction and nonfiction prose writer physician at anytime for questions or complaints. documented in this encounter Plan of Treatment Upcoming Encounters Date Type Department Care Team (Late st Contact Info) Description 06/03/2024 1:00 PM MOLD FINISHER Appointment [facility] - Rheumatology [address] [place] [address] [phone] 06/03/2024 2:00 PM MOLD FINISHER Office Visit [facility] - Rheumatology [address] [place] [address] [phone] Gloria Smith MD [address] [place] [phone] documented as of this encounter Visit Diagnoses Not on filedocumented in this encounter Care Teams Multimedia Production Assistant Relationship Specialty Start Date End Date Tomas Hyman MD [address] [facility] [address] [place] [address] PCP - General Family Medicine 09/05/18 Isidro Heredia MD Rheumatology 02/09/11 documented as of this encounter
--- OUTSIDE RECORDS SUMMARY | 2024-05-03 04:04 | XMS_ITS | Encounter Summary ---
Author Organization [facility] Health Address [address] [facility] [place] [address] Care Team Providers Care Rice Farmworker Name Role Phone Isidro Heredia MD Unavailable Tomas Hyman MD Primary Care Provider [phone] Encounter Details Date Type Department Care Team (Latest Contact Info) Description 03/03/2022 12:05 PM CDT - 03/03/2022 11:59 PM CDT Hospital Encounter [facility] Pain Care [address] [place], [place] [phone] [place] [address] [facility] [address] [place] [address] Discharge Disposition: Home or Self Care Social History Tobacco Use Types Packs/Day Years Used Date Smoking Tobacco: Never Smokeless Tobacco: Never Tobacco Cessation:Counseling Given: Not Answered Alcohol Use Standard Drinks/Week Comments No 0 [...] Sign Reading Time Taken Comments Blood Pressure 122/83 03/03/2022 12:38 PM CDT Pulse 70 03/03/2022 12:38 PM CDT Temperature - - Respiratory Rate 16 03/03/2022 12:38 PM CDT Oxygen Saturation 96% 03/03/2022 12:38 PM CDT Inhaled Oxygen Concentration - - Weight - - Height - - Body Mass Index - - documented in this encounter Discharge Instructions * Patient Instructions* Mini León RN - 03/03/2022 12:15 PM CDT [facility] Pain Discharge Instructions Selective Epidural Caudal Epidural Facet Joint Sacroiliac Joint Epidural Steroid Steroid Injection Steroid Injection Injection Injection Injection Special Instructions: No soaking in water for 48 hours. Use ice pack today, 15 minutes out of everyhour until bedtime as needed. In the morning use a heating pad on low or warm shower, as needed. Then use ice or heat whichever works best for you. Your pain may become worse the first 24 to 48 hours. The injection will not take effect for 1 to 7 days with the average of about 72 hours. If you have fever, chills, severe headache, or any other problems, please call [phone] or after hours callDr. Caldwell at [phone] and tell them your physician's name. The exchange will alert the physician retail services professional. If sedation is given: No sedation given. For Your Next Visit: No additional instructions. Other Instructions: May remove band-aid in [address] Caldwell documented in this encounter Medications at Time of Discharge Medication Sig Dispensed Refills Start Date End Date aspirin EC (ECOTRIN) 81 MG tablet Take 1 (one) tablet by mouth once daily 90 tablet 11/14/2021 atorvastatin (LIPITOR) 40 MG tablet Take 1 (one) tablet by mouth at bedtime zofajyurmys-zchj-ya lysorb, PF, 0.5-1-0.5 % SOLN Instill 1 [...] 02/28/2022 06/04/2022 documented as of this encounter Plan of Treatment Upcoming Encounters Date Type Department Care Team (Late st Contact Info) Description 06/03/2024 1:00 PM STUDENT DEVELOPMENT COORDINATOR Appointment [facility] - Rheumatology [address] [place] [address] [phone] 06/03/2024 2:00 PM STUDENT DEVELOPMENT COORDINATOR Office Visit [facility] - Rheumatology [address] [place] [address] [phone] Gloria Smith MD [address] [place] [phone] Pending Results Name Type Priority Associated Diagnoses Date /Time PAIN MANAGEMENT PROCEDURE TIME Imaging Routine Lumbar radiculopathy Lumbosacral radiculopathy 03/03/2022 12:31 PM CDT documented as of this encounter Visit Diagnoses Diagnosis Lumbar radiculopathy Thoracic or lumbosacral neuritis or radiculitis, unspecified Lumbosacral radiculopathy Thoracic or lumbosacral neuritis or radiculitis, unspecified documented in this encounter Administered Medications Inactive Administered Medications - up to 3 most recent administrations Medication Order MAR Action Action Date Dose Rate Site 0.9% NaCl injection 10 mL 10 mL, Infiltration, ONCE, 1 dose, On Sun03/03/22 at 1245 $ Admin. by Other Provider 03/03/2022 12:20 PM CDT 10 mL bupivacaine PF (Marcaine PF) 0.25 % injection Infiltration, ONCE, 1 dose, On Sun03/03/22 at 1245 $ Admin. by Other Provider 03/03/2022 12:20 PM CDT 10 mL iopamidol (Isovue M 200) 41 % contrast Other, CONTRAST ONCE, Starting on Sun03/03/22 at 1217, Until 03/04/22 at 0118 $ Given - Contrast 03/03/2022 12:20 PM CDT 1 mL methylPREDNISolone acetate (DEPO-Medrol) injection 40 mg 40 mg, Infiltration, ONCE, 1 dose, On Sun03/03/22 at 1245 $ Admin. by Other Provider 03/03/2022 12:20 PM CDT 40 mg documented in this encounter Care Teams Rice Farmworker Relationship Specialty Start Date End Date Tomas Hyman MD [address] [facility] [address] [place] [address] PCP - General Family Medicine 09/05/18 Isidro Heredia MD Rheumatology 02/09/11 documented as of this encounter
--- OUTSIDE RECORDS SUMMARY | 2024-05-03 04:04 | XMS_ITS | Encounter Summary ---
Author Organization [facility] Address [address] [facility] [place] [address] Care Team Providers Care Raise Driller Name Role Phone Isidro Heredia MD Unavailable [phone] Tomas Hyman MD Primary Care Provider [phone] Reason for Visit * Treatment (Routine) - Closed Specialty Diagnoses / Procedures Referred By [place] shah Referred To Contact Infusion Therapy Nurse Diagnoses Rheumatoid arthritis without rheumatoid factor, multiple sites (HCC) Procedures DE GOLIMUMAB FOR IV USE 1MG Gloria Smith MD [address] [place] [address] [address] Referral ID Status Reason Start Date Expiration Date Visits Re quested Visits Authorized [id number] Closed 10/19/2020 04/29/2021 1 8 Encounter Details Date Type Department Care Team (Late st Contact Info) Description 04/05/2021 12:49 PM ENVIRONMENTAL SERVICES DIRECTOR - 04/05/2021 11:59 PM ENVIRONMENTAL SERVICES DIRECTOR Hospital Encounter [facility] Medical [facility] - Rheumatology [address] [place] [address] Gloria Smtih MD [address] [place] [address] Discharge Disposition: Home or Self Care Social History Tobacco Use Types Packs/Day Years Used Date Smoking Tobacco: Never Smokeless Tobacco: Never Alcohol Use Standard Drinks/Week Comments No 0 (1 standard drink = 0.6 oz pur e alcohol) Sex and Gender Information Value Date Recorded Sex Assigned at Not on file Gender Identity Not on file Sexual Orientation Not on file COVID-19 Exposure Response Date Recorded In the last month, have you been in contact with someone who was confirmed or suspected to have Coronavirus / COVID-19? No / Unsure 04/05/2021 1:49 PM ENVIRONMENTAL SERVICES DIRECTOR documented as of this encounter Last Filed Vital Signs Vital Sign Reading Time Taken Comments Blood Pressure 132/74 04/05/2021 1:07 PM ENVIRONMENTAL SERVICES DIRECTOR Pulse 61 04/05/2021 1:07 PM ENVIRONMENTAL SERVICES DIRECTOR Temperature 36.8 ??C (98.3 ??F) 04/05/2021 1:07 PM CS T Respiratory Rate 18 04/05/2021 1:07 PM ENVIRONMENTAL SERVICES DIRECTOR Oxygen Saturation - - Inhaled Oxygen Concentration - - Weight 97 kg (213 lb 12.8 oz) 04/05/2021 1:07 PM ENVIRONMENTAL SERVICES DIRECTOR Height - - Body Mass Index 30.68 02/08/2021 2:29 PM CDT documented in this encounter Discharge Instructions * Discharge Instructions* Jody Sahu RN - 04/05/2021 1:43 PM ENVIRONMENTAL SERVICES DIRECTOR [place] Rheumatology Post Infusion instructions You have received your infusion treatment today. You can remove your bandage when you get home. If you get a rash from your bandage, tell the infusion nurse at your next visit so they will use a different type of dressing in the future. Our infusion staff is very experienced and can be a good resource for questions. If you have any problems such as fever, rash or breathing problems please call your [facility] Rheumatology physician for further instructions. While most problems that occur around the time of an infusion are very mild and not dangerous, they should not be ignored. Sunday through Sunday 9-5 call the office at [phone] After hours or on the weekend call the exchange at [phone] If you have had lab work done today the staff will contact you via mail or by telephone with the results. Remember to bring a copy of your labs to your visits with your primary care doctor; it may save you an unnecessary blood draw. For the patients that have internet access, we now have ???My Chart?? available for your use. ???My Chart?? gives you private access to your medical chart including test and lab results. You may also contact your physician via email through ???My Chart?? . The physician will reply to your questions at their soonest opportunity. Be sure to use the telephone to communicate any emergencies to ensure a quick response. If you are interested in starting your free ???My Chart?? account please contact our staff for instructions at your next visit. We appreciate the opportunity to serve you and are glad you have chosen [facility] as your provider. Jody Sahu RN RONMENTAL SERVICES DIRECTOR documented in this encounter Medications at Time of Discharge Medication Sig Dispensed Refills Start Date End Date atorvastatin (LIPITOR) 40 MG tablet Take 1 (one) tablet by mouth at bedtime rkihzoijgyr-sgnb-os lysorb, PF, 0.5-1-0.5 % SOLN Instill 1 [...] 1 tablet by mouth every other day Potassium 99 MG tablet Take 49.5 mg by mouth 2 times daily TURMERIC CURCUMIN PO Take 1,000 mg by mouth once daily ZYRTEC 10 MG TABS Take 1 (one) tablet by mouth once daily Seasonal (nov Sept aspirin EC (ECOTRIN) 81 MG tablet Take 1 (one) tablet by mouth once daily 90 tablet 01/19/2021 04/13/2021 buPROPion (WELLBUTRIN) 100 MG tablet Take 100 mg by mouth 2 times daily 10/28/2020 10/28/2021 celecoxib (CELEBREX) 200 MG capsuleIndications: 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) Take 1 (one) capsule by mouth 2 times daily 180 capsule 01/18/2021 04/13/2021 folic acid (FOLVITE) 1 MG tablet Take 1 (one) tablet by mouth once daily 90 tablet 4 10/19/2020 08/03/2021 gabapentin (NEURONTIN) 300 MG capsule Take 1 (one) capsule by mouth 3 times daily 270 capsule 01/19/2021 04/13/2021 methotrexate 2.5 MG tablet Take 6 (six) tablets by mouth every 7 days 78 tablet 02/08/2021 04/13/2021 methotrexate, PF, (OTREXUP) 15 MG/0.4ML auto-injectorIndica tions: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) Inject 0.4 mL subcutaneously every 7 days 1.6 mL 3 06/09/2021 08/05/2021 pantoprazole EC (PROTONIX) 40 MG tablet Take 1 (one) tablet by mouth once daily 90 tablet 01/19/2021 04/13/2021 predniSONE (DELTASONE) 5 MG tablet Take 1 (one) tablet by mouth 2 times daily 180 tablet 01/18/2021 04/13/2021 tiZANidine (ZANAFLEX) 4 MG tablet Take 1 (one) tablet by mouth at bedtime 30 tablet 1 01/19/2021 08/03/2021 documented as of this encounter Progress Notes * Jody Sahu, RN - 04/05/2021 1:44 PM CST JOSE Deng [id number] 04/05/2021 Diagnosis: Rheumatoid arthritis without rheumatoid factor, multiple sites [M06.09]. Pt denies symptoms of infection or antibiotic use, no open wounds, or recent surgery, or plans for surgery in the next couple of weeks. Pt is aware that we use the 0-10 pain scale to assess discomfort. 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 front desk coordinator pt signs consent for treatment for this infusion. BP 132/74 Pulse 61 Temp 98.3 ??F Resp 18 Wt 97 kg (213 lb 12.8 oz) BMI 30.68 kg/m2 @ MEDICATIONS FOR CURRENT ENCOUNTER: ?? SCHEDULED MEDICATIONS: ?? golimumab (Simponi Aria) 200 mg in 0.9% NaCl IV 100 mL infusion, Intravenous, Once ?? Number of 24 gauge 3/4 inch placed in Right antecubital ?? 1 attempt(s). Patient monitored throughout procedure. Tolerated well? Yes Next treatment? 8 weeks Jody Sahu RN RONMENTAL SERVICES DIRECTOR documented in this encounter Plan of Treatment Upcoming Encounters Date Type Department Care Team (Late st Contact Info) Description 06/03/2024 1:00 PM ENVIRONMENTAL SERVICES DIRECTOR Appointment [facility] - Rheumatology [address] [place] [address] [phone] 06/03/2024 2:00 PM ENVIRONMENTAL SERVICES DIRECTOR Office Visit [facility] - Rheumatology [address] [place] [address] Gloria Smith MD [address] [place] [phone] documented as of this encounter Visit Diagnoses [...] 30 Minutes, Intravenous, ONCE, 1 dose, On Sun04/05/21 at 1430, Use in-line low protein binding 0.22 micrometer filter. $ New Bag/Syringe 04/05/2021 1:21 PM ENVIRONMENTAL SERVICES DIRECTOR 200 mg 200 mL/hr documented in this encounter Care Teams Raise Driller Relationship Specialty Start Date End Date Tomas Hyman MD [address] [address] [address] [place] [address] PCP - General Family Medicine 09/05/18 Isidro Heredia MD Rheumatology 02/09/11 documented as of this encounter
--- OUTSIDE RECORDS SUMMARY | 2024-05-03 04:04 | XMS_ITS | Encounter Summary ---
Author Organization [facility] Address [address] [facility] [place] [address] Care Team Providers Care Hris Developer Name Role Phone Isidro Heredia MD Unavailable [phone] Tomas Hyman MD Primary Care Provider [phone] Reason for Visit * Treatment (Routine) - Closed Specialty Diagnoses / Procedures Referred By [place] shah Referred To Contact Infusion Therapy Nurse Diagnoses Rheumatoid arthritis without rheumatoid factor, multiple sites (HCC) Procedures OR GOLIMUMAB FOR IV USE 1MG Gloria Smith MD [address] [place] [address] [address] Referral ID Status Reason Start Date Expiration Date Visits Re quested Visits Authorized [id number] Closed 05/12/2021 04/29/2022 1 6 Encounter Details Date Type Department Care Team (Late st Contact Info) Description 06/03/2021 11:51 AM EDISCOVERY PROJECT MANAGER - 06/03/2021 11:59 PM EDISCOVERY PROJECT MANAGER Hospital Encounter [facility] Medical [facility] - Rheumatology [address] [place] [address] Gloria Smith MD [address] [place] [address] Discharge Disposition: Home or Self Care Social History Tobacco Use Types Packs/Day Years Used Date Smoking Tobacco: Never Smokeless Tobacco: Never Alcohol Use Standard Drinks/Week Comments No 0 (1 standard drink = 0.6 oz pur e alcohol) PHQ-2 Answer Date Recorded PHQ2 TOTAL SCORE 0 06/03/2021 Sex and Gender Information Value Date Recorded Sex Assigned at Not on file Gender Identity Not on file Sexual Orientation Not on file COVID-19 Exposure Response Date Recorded In the last month, have you been in contact with someone who was confirmed or suspected to have Coronavirus / COVID-19? No / Unsure 06/03/2021 12:36 PM EDISCOVERY PROJECT MANAGER documented as of this encounter Last Filed Vital Signs Vital Sign Reading Time Taken Comments Blood Pressure 135/78 06/03/2021 12:16 PM EDISCOVERY PROJECT MANAGER Pulse 106 06/03/2021 12:16 PM EDISCOVERY PROJECT MANAGER Temperature 36.4 ??C (97.6 ??F) 06/03/2021 12:[address] Respiratory Rate 18 06/03/2021 12:16 PM EDISCOVERY PROJECT MANAGER Oxygen Saturation - - Inhaled Oxygen Concentration - - Weight 95.7 kg (211 lb) 06/03/2021 12:16 PM EDISCOVERY PROJECT MANAGER Height - - Body Mass Index 30.28 02/08/2021 2:29 PM CDT documented in this encounter Discharge Instructions * Discharge Instructions* Jody Sahu RN - 06/03/2021 12:23 PM EDISCOVERY PROJECT MANAGER [place] Rheumatology Post Infusion instructions You have received [...] rash or breathing problems please call your [facility] Rheumatology physician for further instructions. While most problems that occur around the time of an infusion are very mild and not dangerous, they should not be ignored. Sunday through Sunday 9-5 call the office at [phone] After hours or on the weekend call the exchange at [phone] If you have had lab work done [...] you and are glad you have chosen [facility] as your provider. Jody Sahu RN COVERY PROJECT MANAGER documented in this encounter Medications at Time of Discharge Medication Sig Dispensed Refills Start Date End Date atorvastatin (LIPITOR) 40 MG tablet Take 1 (one) tablet by mouth at bedtime cgafceqqqlk-uqdr-db lysorb, PF, 0.5-1-0.5 % SOLN Instill 1 [...] 14 days 8 kit 2 06/10/2021 11/29/2022 aspirin EC (ECOTRIN) 81 MG tablet Take 1 (one) tablet by mouth once daily 90 tablet 04/14/2021 08/03/2021 buPROPion (WELLBUTRIN) 100 MG tablet Take 100 mg by mouth 2 times daily 10/28/2020 10/28/2021 celecoxib (CELEBREX) 200 MG capsuleIndications: 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) Take 1 (one) capsule by mouth 2 times daily 180 capsule 04/13/2021 08/03/2021 folic acid (FOLVITE) 1 MG tablet Take 1 (one) tablet by mouth once daily 90 tablet 4 10/19/2020 08/03/2021 gabapentin (NEURONTIN) 300 MG capsule Take 1 (one) capsule by mouth 3 times daily 270 capsule 04/13/2021 08/03/2021 methotrexate 2.5 MG tablet Take 6 (six) tablets by mouth every 7 days 72 tablet 04/14/2021 08/05/2021 methotrexate, PF, (OTREXUP) 15 MG/0.4ML auto-injectorIndica tions: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) Inject 0.4 mL subcutaneously every 7 days 1.6 mL 3 06/09/2021 08/05/2021 pantoprazole EC (PROTONIX) 40 MG tablet Take 1 (one) tablet by mouth once daily 90 tablet 04/14/2021 08/03/2021 predniSONE (DELTASONE) 5 MG tablet Take 1 (one) tablet by mouth 2 times daily 180 tablet 04/13/2021 08/03/2021 tiZANidine (ZANAFLEX) 4 MG tablet Take 1 (one) tablet by mouth at bedtime 30 tablet 1 01/19/2021 08/03/2021 documented as of this encounter Progress Notes * Jody Sahu, RN - 06/03/2021 12:33 PM CST JOSE Deng [id number] 06/03/2021 Diagnosis: Rheumatoid arthritis without rheumatoid factor, multiple sites [M06.09]. Pt denies symptoms of infection or antibiotic use, no open wounds, or recent surgery, or plans for surgery in the next couple of weeks. Pt is aware that we use the 0-10 pain scale to assess discomfort. 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 trouble locator test desk pt signs consent for treatment for this infusion. BP 135/78 Pulse 106 Temp 97.6 ??F Resp 18 Wt 95.7 kg (211 lb) BMI 30.28 kg/m2 @ MEDICATIONS FOR CURRENT ENCOUNTER: ?? SCHEDULED MEDICATIONS: ?? golimumab (Simponi Aria) 200 mg in 0.9% NaCl IV 100 mL infusion, Intravenous, Once ?? Number of 24 gauge 3/4 inch placed in Right antecubital ?? 1 attempt(s). Patient monitored throughout procedure. Tolerated well? Yes Next treatment? 8 weeks Jody Sahu RN COVERY PROJECT MANAGER documented in this encounter Plan of Treatment Upcoming Encounters Date Type Department Care Team (Late st Contact Info) Description 06/03/2024 1:00 PM EDISCOVERY PROJECT MANAGER Appointment [facility] - Rheumatology [address] [place] [address] [phone] 06/03/2024 2:00 PM EDISCOVERY PROJECT MANAGER Office Visit [facility] - Rheumatology [address] [place] [address] Gloria Smith MD [address] [place] [phone] documented as of this encounter Visit Diagnoses [...] 30 Minutes, Intravenous, ONCE, 1 dose, On Sun06/03/21 at 1230, Use in-line low protein binding 0.22 micrometer filter. $ New Bag/Syringe 06/03/2021 12:29 PM EDISCOVERY PROJECT MANAGER 200 mg 200 mL/hr documented in this encounter Care Teams Hris Developer Relationship Specialty Start Date End Date Tomas Hyman MD [address] [place] [address] PCP - General Family Medicine 09/05/18 Isidro Heredia MD Rheumatology 02/09/11 documented as of this encounter
--- OUTSIDE RECORDS SUMMARY | 2024-05-03 04:04 | XMS_ITS | Encounter Summary ---
Author Organization [facility] Address [address] [facility] [address] [facility] [place] [address] Care Team Providers Care Sales Representative Raw Fibers Name Role Phone Isidro Heredia MD Unavailable [phone] Tomas Hyman MD Primary Care Provider [phone] Encounter Details Date Type Department Care Team (Latest Contact Info) Description 01/30/2023 Travel Social History Tobacco Use Types Packs/Day [...] st Contact Info) Description 06/03/2024 1:00 PM RUBBER TILE FLOOR LAYER Appointment [facility] Medical [place] [facility] - Rheumatology [address] [place] [address] 06/03/2024 2:00 PM RUBBER TILE FLOOR LAYER Office Visit [facility] - Rheumatology [address] [place] [address] Gloria Smith MD [address] [place] [phone] documented as of this encounter Visit Diagnoses Not on filedocumented in this encounter Care Teams Sales Representative Raw Fibers Relationship Specialty Start Date End Date Tomas Hyman MD [address] [place] [address] PCP - General Family Medicine 09/05/18 Isidro Heredia MD Rheumatology 02/09/11 documented as of this encounter
--- OUTSIDE RECORDS SUMMARY | 2024-05-03 04:04 | XMS_ITS | Encounter Summary ---
Author Organization [facility] Address [address] [facility] [place] [address] Care Team Providers Care Side Guider Name Role Phone Isidro Heredia MD Unavailable [phone] Tomas Hyman MD Primary Care Provider Reason for Visit * Reason Onset Date Comments Medication Prior Auth Request 02/08/2021 Encounter Details Date Type Department Care Team (Late st Contact Info) Description 02/08/2021 Telephone [facility] - Rheumatology [address] [place] [address] Gloria Dillon MD [address] [place] [phone] Medication Prior Auth Request Social History [...] COVID-19? No / Unsure 06/03/2021 12:36 PM COOK SPECIALTY documented as of this encounter Miscellaneous Notes * Addendum Note - Gloria Dillon MD - 06/09/2021 4:02 PM CSTAddended by: GLORIA DILLON on: 06/09/2021 04:02 PM Modules accepted: Orders SPECIALTY * Telephone Encounter - DeniaCarey Darrion - 06/09/2021 9:05 AM CST I do not see a script was ever sent to his pharmacy. If you could please do that and then they willlet us know if a prior auth is needed and will follow from there. SPECIALTY * Telephone Encounter - Gloria Dillon MD - 06/03/2021 1:24 PM CST Please follow up. SPECIALTY * Telephone Encounter - Gloria Dillon MD - 02/08/2021 3:35 PM CDT Request for MTX pen (otrexup) 15mg every week. Dx: seronegative RA documented in this encounter Plan of Treatment Upcoming Encounters Date Type Department Care Team (Late st Contact Info) Description 06/03/2024 1:00 PM COOK SPECIALTY Appointment [facility] - Rheumatology [address] [place] [address] 06/03/2024 2:00 PM COOK SPECIALTY Office Visit [facility] - Rheumatology [address] [place] [address] Gloria Dillon MD [address] [place] [phone] documented as of this encounter Visit Diagnoses Diagnosis 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)- Primary documented in this encounter Care Teams Side Guider Relationship Specialty Start Date End Date Tomas Hyman MD [address] [address] [place], [place] [id number] PCP - General Family Medicine 09/05/18 Isidro Heredia MD Rheumatology 02/09/11 documented as of this encounter
--- OUTSIDE RECORDS SUMMARY | 2024-05-03 04:04 | XMS_ITS | Encounter Summary ---
Author Organization 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) Procedures ID GOLIMUMAB FOR IV USE 1MG Gloria Smith MD [address] [place] [address] [address] Referral ID Status Reason Start Date Expiration Date Visits Re quested Visits Authorized [id number] Closed 05/22/2022 04/29/2023 12 12 Encounter Details Date Type Department Care Team (Latest Contact Info) Description 07/05/2022 10:42 AM WAFER BATTER MIXER - 07/05/2022 11:59 PM WAFER BATTER MIXER Hospital Encounter [facility] [address] [place] [address] Tomas Hyman MD [address] [place] [address] Discharge Disposition: Home or Self Care Social History Tobacco Use Types Packs/Day Years Used Date Smoking Tobacco: Never Smokeless Tobacco: Never Alcohol Use Standard Drinks/Week Comments No 0 (1 standard drink = 0.6 oz pur e alcohol) PHQ-2 Answer Date Recorded PHQ2 TOTAL SCORE 0 07/05/2022 Sex and Gender Information Value Date Recorded Sex Assigned at Not on file Gender Identity Not on file Sexual Orientation Not on file documented as of this encounter Last Filed Vital Signs Vital Sign Reading Time Taken Comments Blood Pressure 121/71 07/05/2022 10:45 AM WAFER BATTER MIXER Pulse 78 07/05/2022 10:45 AM WAFER BATTER MIXER Temperature 36.1 ??C (97 ??F) 07/05/2022 10:45 AM WAFER BATTER MIXER Respiratory Rate 18 07/05/2022 10:45 AM WAFER BATTER MIXER Oxygen Saturation 100% 07/05/2022 10:45 AM WAFER BATTER MIXER Inhaled Oxygen Concentration - - Weight 95.3 kg (210 lb) 07/05/2022 10:45 AM WAFER BATTER MIXER Height 177.8 cm (5' 10 ) 07/05/2022 10:45 AM WAFER BATTER MIXER Body Mass Index 30.13 07/05/2022 10:45 AM WAFER BATTER MIXER documented in this encounter Medications at Time of Discharge Medication Sig Dispensed Refills Start Date End Date aspirin EC (ECOTRIN) 81 MG tablet Take 1 (one) tablet by mouth once daily 90 tablet 11/14/2021 atorvastatin (LIPITOR) 40 MG tablet Take 1 (one) tablet by mouth at bedtime [id number]-pt lysorb, PF, 0.5-1-0.5 % SOLN Instill 1 [...] by mouth 2 times daily 180 capsule 06/05/2022 09/03/2022 folic acid (FOLVITE) 1 MG tablet Take 1 (one) tablet by mouth once daily 90 tablet 3 08/04/2021 09/03/2022 gabapentin (Neurontin) 300 MG capsuleIndications: Neuropathy Take 1 (one) capsule by mouth 3 times daily 270 capsule 06/05/2022 09/03/2022 methotrexate 2.5 MG tabletIndications:R heumatoid 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) Take 6 (six) tablets by mouth every 7 days 72 tablet 06/05/2022 09/03/2022 predniSONE (Deltasone) 5 MG tabletIndications:R heumatoid 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) Take 1 (one) tablet by mouth 2 times daily 180 tablet 06/05/2022 09/03/2022 tiZANidine (Zanaflex) 4 MG tabletIndications:C hronic neck pain,Chronic back pain, unspecified back location, unspecified back pain laterality Take 1 (one) tablet by mouth 2 times daily as needed for Muscle Spasms 60 tablet 1 06/05/2022 09/03/2022 documented as of this encounter Progress Notes * Mary Cooper RN - 07/05/2022 12:26 PM CST Patient completed scheduled Simponi at [facility]. Please call with any questions [phone]. BP 121/71 Pulse 78 Temp 97 ??F Resp 18 Ht 1.778 m (5' 10 ) Wt 95.3 kg (210 lb) SpO2 100% Medications 0.9% NaCl injection 1-40 mL (10 mL Intracatheter $ Given 07/05/22 1224) golimumab (Simponi Aria) 190 mg in 0.9% NaCl IV 100 mL infusion (0 mg Intravenous Stopped 07/05/22 1151) R BATTER MIXER documented in this encounter Plan of Treatment Upcoming Encounters Date Type Department Care Team (Late st Contact Info) Description 06/03/2024 1:00 PM WAFER BATTER MIXER Appointment [facility] - Rheumatology [address] [place] [address] 06/03/2024 2:00 PM WAFER BATTER MIXER Office Visit [facility] - Rheumatology [address] [place] [address] Gloria Smith MD [address] [place] [phone] documented as of this encounter Visit Diagnoses Diagnosis 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 $ Given 07/05/2022 12:24 PM WAFER BATTER MIXER 10 mL $ Given 07/05/2022 10:51 AM WAFER BATTER MIXER 10 mL golimumab (Simponi Aria) 190 mg in 0.9% NaCl IV 100 mL infusion 190 mg (rounded from 190.6 mg = 2 mg/kg ? 95.3 kg), at 200 mL/hr, Administer over 30 Minutes, Intravenous, ONCE, 1 dose, On Sun07/05/22 at 1100, Total volume to be infused with estimated MFR overfill 110 mL. Use in-line low protein binding 0.22 micrometer filter. $ New Bag/Syringe 07/05/2022 11:20 AM WAFER BATTER MIXER 190 mg 200 mL/hr documented in this encounter Care Teams Intake Assessor Relationship Specialty Start Date End Date Tomas Hyman MD [address] [facility] [address] [place] [address] PCP - General Family Medicine 09/05/18 Isidro Heredia MD Rheumatology 02/09/11 documented as of this encounter
--- OUTSIDE RECORDS SUMMARY | 2024-05-03 04:04 | XMS_ITS | Encounter Summary ---
Author Organization [facility] Address [address] [facility] [place] [address] Care Team Providers Care Forensic Pathologist Name Role Phone Isidro Heredia MD Unavailable [phone] Tomas Hyman MD Primary Care Provider [phone] Encounter Details Date Type Department Care Team (Late Contact Info) Description 11/18/2022 Orders Only [facility] - Rheumatology [address] [facility], [address] [place] [phone] Gloria Smith MD [address] [place] [phone] Social History Tobacco Use Types Packs/Day [...] (Late Contact Info) Description 06/03/2024 1:00 PM GRINDER LAP Appointment [facility] - Rheumatology [address] [place] [address] 06/03/2024 2:00 PM GRINDER LAP Office Visit [facility] - Rheumatology [address] [place] [address] Gloria Smith MD [address] [place] [address] documented as of this encounter Visit Diagnoses Not on filedocumented in this encounter Care Teams Forensic Pathologist Relationship Specialty Start Date End Date Tomas Hyman MD [address] [place] [address] PCP - General Family Medicine 09/05/18 Isidro Heredia MD Rheumatology 02/09/11 documented as of this encounter
--- OUTSIDE RECORDS SUMMARY | 2024-05-03 04:04 | XMS_ITS | Encounter Summary ---
Author Organization [facility] Address [address] [place] [address] Care Team Providers Care Rectifying Operator Name Role Phone Isidro Heredia MD Unavailable [phone] Tomas Hyman MD Primary Care Provider [phone] Reason for Visit * Reason Comments Follow-up Encounter Details Date Type Department Care Team (Late st Contact Info) Description 02/10/2022 8:40 AM CDT Office Visit [facility] - Rheumatology [address] [place] [address] Gloria Smith MD [address] [place] [phone] 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) (Primary Dx); Vitamin D deficiency; Fatigue, unspecified type Social History Tobacco Use Types Packs/Day Years [...] Sign Reading Time Taken Comments Blood Pressure 117/69 02/10/2022 8:30 AM CDT Pulse 79 02/10/2022 8:30 AM CDT Temperature - - Respiratory Rate 20 02/10/2022 8:30 AM CDT Oxygen Saturation 98% 02/10/2022 8:30 AM CDT Inhaled Oxygen Concentration - - Weight 105.5 kg (232 lb 9.6 oz) 02/10/2022 8:30 AM CDT Height 177.8 cm (5' 10 ) 02/10/2022 8:30 AM CDT Body Mass Index 33.37 02/10/2022 8:30 AM CDT documented in this encounter Progress Notes * Gloria Smith MD - 02/11/2022 7:19 PM CDT Vit D level normal. Continue OTC vit D. * Gloria Smith MD - 02/10/2022 8:50 AM CDT CHIEF COMPLAINTS: Follow-up on rheumatoid arthritis HISTORY OF PRESENT ILLNESS: Chalino Deng is a 61 year old white male with past medical history of seropositive rheumatoid arthritis, retinal detachment status post surgery, diverticulitis, sepsis on Actemra, recurrent UTIs, recurrent prostatitis, chronic back pain and lumbar stenosis and spondylosis status post epidural injections, history of shingles, who returns for follow-up on rheumatoid arthritis. (Raquel 1:160, ccp 22+ in 2009, rf 10.2) Last seen on September 02, 2021. Takes Humira every 2 weeks for several months now, with poor effect. He feels that Simponi worked better than Remicade which was better than Humira. Worse pain in low back. Will follow up with pain management. Having sciatica. Overall joint pain worse. Chest heaviness, not related to exertion or breathing. Cardiac workup unremarkable. Back pain 8/10 or higher, peripheral joints hurting and swollen. Denies fever, recent infection, rash. Medication history: Humira 06/2021-present mtx 2004-06/2020, inadequate, 10/2020-present simponi 10/2020-05/2021, inadequate SSZ 08/2020, GI SEs AZA 06/2020-08/2020, GI [...] MEDICAL HISTORY: Past Medical History: Diagnosis Date ??? RA (rheumatoid arthritis) ([facility]) Past Surgical History: Procedure Laterality Date ??? Tonsillectomy at 9 years old ALLERGIES: Allergies Allergen Reactions ??? Simvastatin Unknown ??? Plaquenil [Hydroxychloroquine Sulfate] Eye vision disturbance ??? Tuberculin Ppd Positive , CXR yrly Dx inactive TB SOCIAL HISTORY: Social History Tobacco Use Smoking Status Never Smoker Smokeless Tobacco Never Used Social History Substance and Sexual Activity Alcohol Use No Social History Substance and Sexual Activity Drug Use Not on file FAMILY HISTORY: Family History Problem Relation Name Age of Onset ??? Other Mother aneursym ??? Hypertension Mother ??? Stroke Mother ??? Other Father asbestos exposure ??? Heart Failure Father REVIEW OF SYSTEM: A complete review of systems is negative except as per HPI. PHYSICAL EXAM: BP 117/69 (BP SITE: LEFT ARM, BP POSITION: SITTING, BP CUFF SIZE: 11) Pulse 79 Resp 20 Ht 1.778 m (5' 10 ) Wt 105.5 kg (232 lb 9.6 oz) SpO2 98% General: in no acute distress. HEENT: anicteric sclera, no conjunctival injection, PERRL, no oral ulcers. Neck: supple, nontender, no lymphadenopathy Chest: nontender. Abdomen: soft, nontender Extremities: no peripheral swelling, clubbing or cyanosis Skin: No rash Neurologic: Moves all extremities MSK: Tenderness and mild swelling in wrists, fingers,. Tenderness in elbows, shoulders, knees, ankles, lower back. LABORATORY: Recent Labs Component Name 07/27/21 1107 02/08/21 1645 10/19/20 1540 WBC 8.1 7.5 9.5 RBC 4.09* 4.14 4.50 HGB 12.4* 12.8* 13.7 HCT 38.0 36.6* 40.8 MCV 93 88 90.7 MCHC 32.6 35.0 33.6 PLTCOUNT 171 151 179 MONOCYTPCT 6 7 7.9 EOSINPCT 6 4 4.0 LYMPHABS 4.1* 2.8 3.56 MONOCYTABS 0.5 0.5 0.75 BASOABS 0.1 0.1 0.08 IMMGRANSABS 0.0 0.0 0.02 Recent Labs Component Name 07/27/21 1107 02/08/21 1645 10/19/20 1540 SODIUM 138 136 137 POTASSIUM 3.9 4.2 4.0 CHLORIDE 99 97 100 CO2 26 26 24 BUN 16 8 22 CREATININE 1.23 1.13 1.18 GLUCOSE 102* 119* 100 CALCIUM 9.2 9.4 9.2 ALBUMIN 4.5 4.5 4.2 ALKPHOS 59 63 70 ALT 27 20 16 AST 32 27 18 TBIL 0.7 0.7 0.6 TPROT 6.9 6.7 6.6 EGFR 68 71 >60 Recent Labs Component Name 02/08/21 1645 06/29/20 1410 02/06/20 1332 CRP <1 <0.20 0.21 Recent Labs Component Name 02/08/21 1645 06/29/20 1410 02/06/20 1332 SEDRATE 5 13 12 PROCEDURE: ASSESSMENT & PLAN: Current medication: Humira 40 mg every 2 weeks, MTX 15mg weekly, folic acid 1mg, prednisone 5 mg bid, Celebrex 200 mg b.i.d. 61 year old white male with: Seropositive rheumatoid arthritis Osteoporosis Chronic back pain and lumbar radiculopathy High-risk medication -- Monitoring for toxicity of MTX with lab tests: CBC and CMP every 3 months to monitor bone marrowfunction, liver function and kidney function. (Raquel 1:160, ccp 22+ in 2010, rf 10.2, esr-, crp) Follow-up for rheumatoid arthritis. Humira has poor effect. Simponi worked relatively well. Diffusetenderness and mild synovitis in hands on exam. Back pain is much worse than before. Rheumatoid arthritis - switch Humira to Simponi infusion, 2 milligram/kilogram, pending insurance approval - continue methotrexate, low-dose prednisone - check TB, hepatitis, vitamin-D - return to clinic in 3 months Chronic neck and back pain - follows with Pain Management and will receive epidural injections. Had declined lumbar surgery. - continue tizanidine to 4 mg b.i.d. p.r.n.. Osteoporosis - Will repeat DEXA bone density scan - took alendronate from 1818-3401. The total time spent today was 40 minutes performing chart prep, review of data and visit with the patient. documented in this encounter Plan of Treatment Upcoming Encounters Date Type Department Care Team (Late st Contact Info) Description 06/03/2024 1:00 PM MANAGER INSTALLATION Appointment [facility] - Rheumatology [address] [place] [address] 06/03/2024 2:00 PM MANAGER INSTALLATION Office Visit [facility] - Rheumatology [address] [place] [address] Gloria Smith MD [address] [place] [phone] documented as of this encounter Procedures Procedure Name Priority Date/Time Associated Diagnosis Comments HEPATITIS SCREEN ACUTE ([facility]) Routine 02/10/2022 9:46 AM CDT 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) Fatigue, unspecified type VITAMIN D 25-HYDROXY Routine 02/10/2022 9:46 AM CDT Vitamin D deficiency QUANTIFERON TB-GOLD Routine 02/10/2022 9 :44 AM CDT 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) documented in this encounter Results * HEPATITIS SCREEN ACUTE ([facility]) (02/10/2022 9:46 [...] Resulting Agency Comment Lab Testing performed at: [facility] [address] eSamus Ibarra ?? Ziyad PENNY [id number] Gloria Smith MD LAB - CHEMISTRY MARII ARAUJO [facility] INSURANCE BILL [address] [place] [address] * VITAMIN D 25-HYDROXY (02/10/2022 9:46 AM CDT) Vitamin D, 25 Hydroxy 52.1 30 - 100 ng/mL [facility] INSURANCE BILL Comment: Vitamin D Status: ?Deficiency ? <20 ? ng/mL ?Insufficiency ?? 20-30 ??ng/mL ?Sufficiency ? 30-100 ng/mL ?Toxicity ? >100 ?ng/mL Blood BLOOD SPECIMEN / Unknown 02/10/2022 9:46 AM CDT 02/10/2022 Narrative Resulting Agency Comment Lab Testing performed at: [facility] [address] Depsonny Ibarra ?? Ziyad PENNY [id number] Gloria Smith MD LAB - CHEMISTRY MARII ARAUJO Performing Organization Address City/[facility]/ZIP Co de Phone Number [facility] INSURANCE BILL [address] [place] [address] * QUANTIFERON TB-GOLD (02/10/2022 9:44 AM CDT) QuantiFERON Incubation Incubation performed. [facility] INSURANCE BILL [...] Resulting Agency Comment Lab Testing performed at: [facility] [address] [facility] ??[facility] [id number] Gloria Smith MD LAB - CHEMISTRY MARII ARAUJO Performing Organization Address City/[facility]/ZIP Co de Phone Number [facility] INSURANCE BILL [address] [place] [address] documented in this encounter Visit Diagnoses Diagnosis 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)- Primary Vitamin D deficiency Fatigue, unspecified type documented in this encounter Care Teams Rectifying Operator Relationship Specialty Start Date End Date Tomas Hyman MD [address] [facility] [address] [place] [address] PCP - General Family Medicine 09/05/18 Isidro Heredia MD Rheumatology 02/09/11 documented as of this encounter
--- OUTSIDE RECORDS SUMMARY | 2024-05-03 04:04 | XMS_ITS | Encounter Summary ---
Author Organization [facility] Address [address] [place] [address] Care Team Providers Care Mig Welder Name Role Phone Isidro Heredia MD Unavailable [phone] Tomas Hyman MD Primary Care Provider [phone] Encounter Details Date Type Department Care Team (Latest Contact Info) Description 05/19/2022 Travel Social History Tobacco Use Types Packs/Day Years Used Date Smoking Tobacco: Never Smokeless Tobacco: Never Alcohol Use Standard Drinks/Week Comments No 0 (1 standard drink = 0.6 oz pur e alcohol) PHQ-2 Answer Date Recorded PHQ2 TOTAL SCORE 0 05/19/2022 Sex and Gender Information Value Date Recorded Sex Assigned at Not on file Gender Identity Not on file Sexual Orientation Not on file COVID-19 Exposure Response Date Recorded In the last 10 days, have yo u been in contact with someone who was confirmed or suspected to have Coronavirus/COVID-19? No / Unsure 05/19/2022 10:58 AM PACKAGING MECHANIC documented as of this encounter Plan of Treatment Upcoming Encounters Date Type Department Care Team (Late st Contact Info) Description 06/03/2024 1:00 PM PACKAGING MECHANIC Appointment [facility] - Rheumatology [address] [place] [address] 06/03/2024 2:00 PM PACKAGING MECHANIC Office Visit [facility] - Rheumatology [address] [place] [address] Gloria Smith MD [address] [place] [phone] documented as of this encounter Visit Diagnoses Not on filedocumented in this encounter Care Teams Mig Welder Relationship Specialty Start Date End Date Tomas Hyman MD [address] [place] [address] PCP - General Family Medicine 09/05/18 Isidro Heredia MD Rheumatology 02/09/11 documented as of this encounter
--- OUTSIDE RECORDS SUMMARY | 2024-05-03 04:04 | XMS_ITS | Encounter Summary ---
Author Organization [facility] Address [address] [facility] [place] [address] Care Team Providers Care Bilingual Speech Language Pathologist Name Role Phone Isidro Heredia MD Unavailable [phone] Tomas Hyman MD Primary Care Provider [phone] Encounter Details Date Type Department Care Team (Latest Contact Info) Description 06/03/2021 Travel Social History Tobacco Use Types Packs/Day [...] COVID-19? No / Unsure 06/03/2021 12:36 PM CRANE HELPER documented as of this encounter Plan of Treatment Upcoming Encounters Date Type Department Care Team (Late st Contact Info) Description 06/03/2024 1:00 PM CRANE HELPER Appointment [facility] - Rheumatology [address] [place] [address] 06/03/2024 2:00 PM CRANE HELPER Office Visit [facility] - Rheumatology [address] [place] [address] Gloria Smith MD [address] [place] [phone] documented as of this encounter Visit Diagnoses Not on filedocumented in this encounter Care Teams Bilingual Speech Language Pathologist Relationship Specialty Start Date End Date Tomas Hyman MD [address] [place] [address] PCP - General Family Medicine 09/05/18 Isidro Heredia MD Rheumatology 02/09/11 documented as of this encounter
--- OUTSIDE RECORDS SUMMARY | 2024-05-03 04:04 | XMS_ITS | Encounter Summary ---
Author Organization [facility] Address [address] [facility] [place] [address] Care Team Providers Care Route Returner Name Role Phone Isidro Heredia MD Unavailable [phone] Tomas Hyman MD Primary Care Provider [phone] Reason for Referral * OP/Amb RFL Auth (Routine) - Pending Review Specialty Diagnoses / Procedures Referred By Contsarahi t Referred To Contact Diagnoses Right shoulder pain, unspecified chronicity Procedures [place] DRAIN/INJECT LARGE JOINT/BURSA Gloria Smith MD [address] [place] [address] Referral ID Status Reason Start Date Expiration Date V isits Requested Visits Authorized [id number] Pending Review 05/29/2023 05/28/2024 1 1 [facility] Reason for Visit * Reason Comments Arthritis Encounter Details Date Type Department Care Team (Late st Contact Info) Description 05/29/2023 1:40 PM PUBLIC HEALTH Office Visit [facility] - Rheumatology [address] [place] [address] Gloria Smith MD [facility] [place] [address] Rheumatoid arthritis of multiple sites with [...] on file documented as of this encounter Progress Notes * Gloria Smith MD - 05/29/2023 10:21 PM CST Please inform patient: Normal blood counts. Normal liver function. Normal kidney function. Inflammatory markers are slightly higher than before, indicating flare up of RA. Hopefully it will improve after steroid injection and simponi infusion. [facility] * Gloria Smith MD - 05/29/2023 1:42 PM CST CHIEF COMPLAINTS: Follow-up on rheumatoid arthritis HISTORY [...] in 2009, rf 10.2) Last seen on January 30, 2023. Was recently diagnosed of basal cell carcinoma on forehead. Plan is to have superficial radiation therapy. Will schedule follow up with [facility] at [address] [place] [address]. Having more back pain and stiffness for 5 days, a little better with resting. Had traveled recently. Some hip pain recently. Mild swelling in hands. Pain in shoulders in morning. No recent infection. Medication history: mtx 2004-06/2020, inadequate, [...] History: Diagnosis Date ??? RA (rheumatoid arthritis) ([facility]) Past Surgical History: Procedure Laterality Date ??? Tonsillectomy at 9 years old ALLERGIES: Allergies Allergen Reactions ??? Simvastatin GI Discomfort ??? Hydroxychloroquine Eye Discomfort ??? Plaquenil [Hydroxychloroquine Sulfate] Eye vision disturbance ??? Tuberculin Other ??? Tuberculin Ppd Positive , CXR yrly Dx inactive TB SOCIAL HISTORY: Social History Tobacco Use Smoking Status Never Smokeless Tobacco Never Social History Substance [...] negative except as per HPI. PHYSICAL EXAM: There were no vitals taken for this visit. General: in no acute distress. HEENT: anicteric sclera, no conjunctival injection, PERRL, no oral ulcers. Neck: supple, nontender, no lymphadenopathy Chest: nontender. Abdomen: soft, nontender Extremities: no peripheral swelling, clubbing or cyanosis Neurologic: Moves all extremities MSK: Tenderness in bilateral shoulders worse on the right, tenderness in elbows, hands, knees, ankles. Slight puffiness in hands. LABORATORY: Recent Labs Component Name 01/30/23 1158 11/29/22 0911 07/27/22 1453 WBC 9.1 7.0 6.8 RBC 3.94 3.79* 4.19 HGB 12.0 11.5* 13.1 HCT 38.5 35.9 37.2* MCV 97.7 94.7 89 MCHC 31.2 32.0 35.2 PLTCOUNT 151* 160 157 MONOCYTPCT 6.8 7.6 7 EOSINPCT 7.3* 7.6* 3 LYMPHABS 3.02 3.39 3.0 MONOCYTABS 0.62 0.53 0.5 BASOABS 0.10* 0.06 0.1 IMMGRANSABS 0.02 0.01 0.0 Recent Labs Component Name 01/30/23 1158 11/29/22 0911 07/27/22 1454 SODIUM 136 138 129* POTASSIUM 4.9 4.0 4.8 CHLORIDE 101 103 92* CO2 25 29 23 BUN 17 15 11 CREATININE 0.97 0.95 0.99 GLUCOSE 98 104 85 CALCIUM 9.2 9.0 9.2 ALBUMIN 4.0 4.0 4.6 ALKPHOS 62 49 48 ALT 20 16 18 AST 24 21 26 TBIL 0.5 0.6 0.6 TPROT 7.0 6.5 6.6 EGFR 89* >90 88 Recent Labs Component Name 11/29/22 0911 02/08/21 1645 06/29/20 1410 CRP <0.20 <1 <0.20 Recent Labs Component Name 11/29/22 0911 02/08/21 1645 06/29/20 1410 SEDRATE 11 5 13 PROCEDURE: Procedure Name: Right shoulder steroid injection Indication: Pain Side: Right Approach: Posterior Date of procedure: 05/29/2023 Informed Consent and Counseling: The procedure, risks, and benefits were thoroughly explained to the patient. The option of not having the procedure was offered. An informed consent was obtained. ? PROCEDURE: The appropriate timeout was taken. The [...] but it lasts less than 8 weeks. Mildtenosynovitis in hands on exam, flare-up of right shoulder pain for some time. -- Chronic pain is secondary to rheumatoid arthritis, osteoarthritis. Just diagnosed of basal cell carcinoma on forehead. Dermatology recommended superficial radiation therapy. Discussed with patient that TNF inhibitors slightly increases risk of basal cell carcinoma. I am hoping to continue current DMARDs for rheumatoid arthritis but patient does have to follow with Dermatology closely for skin cancer screening. Will communicate with Dermatology and see if they are okay with that. Rheumatoid arthritis - status post right shoulder steroid injection. - consider increasing simponi to 200mg, increasing mtx to 20mg. Will not increase the dosage beforebasal cell carcinoma treatment. - continue Simponi infusion - continue methotrexate, low-dose prednisone, Celebrex - repeat CBC and CMP, inflammatory markers. Will repeat CBC and CMP every 2 months. - return to clinic in 4 months Chronic neck and back pain - [...] results to us. - took alendronate from [id number]. [facility] documented in this encounter Plan of Treatment Upcoming Encounters Date Type Department Care Team (Late st Contact Info) Description 06/03/2024 1:00 PM PUBLIC HEALTH Appointment [facility] - Rheumatology [address] [place] [address] 06/03/2024 2:00 PM PUBLIC HEALTH Office Visit [facility] - Rheumatology [address] [place] [address] Gloria Smith MD [address] [place] [phone] Scheduled Orders Name Type Priority Associated Diagnoses Orde r Schedule CBC WITH DIFFERENTIAL Lab Routine 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) [id number]-8Weeks for 5 Occurrences starting 05/29/2023 until 06/27/2024, 3 completed COMPREHENSIVE METABOLIC PANEL Lab Routine 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) [id number]-8Weeks for 5 Occurrences starting 05/29/2023 until 06/27/2024, 3 completed documented as of this encounter Procedures Procedure Name Priority Date/Time Associated Diagnosis Comments CBC W AUTO DIFFERENTIAL Routine 07/12/2023 3:20 PM CDT 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) COMPREHENSIVE METABOLIC PANEL Routine 07/12/2023 3:20 PM CDT 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) C-REACTIVE PROTEIN Routine 05/29/2023 2: 35 PM PUBLIC HEALTH 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) ERYTHROCYTE SEDIMENTATION RATE Routine 05/29/2023 2:35 PM PUBLIC HEALTH 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) CBC W AUTO DIFFERENTIAL Routine 05/29/2023 2:35 PM PUBLIC HEALTH 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) COMPREHENSIVE METABOLIC PANEL Routine 05/29/2023 2:35 PM PUBLIC HEALTH Rheumatoid arthritis 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 [...] 01/29/2024 6:08 PM CDT Performed at: ?? [facility] [place] [address] , [place], [place] ??[id number] Atomic Welder: Sanchez Wagner [facility], Phone: ??[phone] Gloria Smith MD LAB - CHEMISTRY MARII ARAUJO [facility] INSURANCE BILL [address] [place] [address] * (ABNORMAL) CBC WITH DIFFERENTIAL (01/29/2024 10:37 [...] [facility] INSURANCE BILL Comment:MPV (CS) 11.1 fL 7. 8-11.4 Granulocytes % 58.1 41.0 - 74.0 % [...] - 01/29/2024 6:08 PM CDT Performed at: ??[address] - [place] [address] [place], [place] ??[id number] Atomic Welder: Sanchez Wagner [facility], Phone: ??[phone] Gloria Smith MD LAB - HEMATOLOGY ORD ERABLES [facility] INSURANCE BILL [address] [place] [address] * (ABNORMAL) COMPREHENSIVE METABOLIC PANEL (09/17/2023 2:54 [...] Resulting Agency Comment Lab Testing performed at: [facility] [address] [facility] ??[facility] [phone] Gloria Smith MD LAB - CHEMISTRY MARII ARAUJO [facility] INSURANCE BILL [address] [place] [address] * (ABNORMAL) CBC WITH DIFFERENTIAL (09/17/2023 2:54 [...] Resulting Agency Comment Lab Testing performed at: [facility] [address] [facility] ??[facility] [phone] Gloria Smith MD LAB - HEMATOLOGY ORD ERABLES [facility] INSURANCE BILL [address] [place] [address] * COMPREHENSIVE METABOLIC PANEL (07/12/2023 3:20 PM CDT) Glucose 89 70 - 99 mg/dL [facility] INSURANCE BILL BUN 18 8 - 27 mg/dL [facility] INSURANCE BILL Creatinine 1.11 0.76 - 1.27 mg/dL [facility] INSURANCE BILL eGFR by CKD-EPI 76 >59 mL/min/1.7 3 [facility] INSURANCE BILL BUN/Creatinine Ratio 16 10 - 24 [facility] INSURANCE BILL Sodium 138 134 - 144 mmol/L [facility] INSURANCE BILL Potassium 4.5 3.5 - 5.2 mmol/L [facility] INSURANCE BILL Chloride 99 96 - 106 mmol/L [facility] INSURANCE BILL CO2 25 20 - 29 mmol/L [facility] INSURANCE BILL Calcium 9.5 8.6 - 10.2 mg/dL [facility] INSURANCE BILL Protein Total 6.8 6.0 - 8.5 g/dL [facility] INSURANCE BILL Albumin 4.4 3.8 - 4.9 g/dL [facility] INSURANCE BILL Globulin Total 2.4 1.5 - 4.5 g/dL [facility] INSURANCE BILL Albumin/Globulin Ratio 1.8 1.2 - 2.2 [facility] INSURANCE BILL Bilirubin Total 0.7 0.0 - 1.2 mg/dL [facility] INSURANCE BILL Alkaline Phosphatase 58 44 - 121 IU/L [facility] INSURANCE BILL AST 21 0 - 40 IU/L [facility] INSURANCE BILL ALT 17 0 - 44 IU/L [facility] INSURANCE BILL Comment:FASTING Blood BLOOD SPECIMEN / Unknown 07/12/2023 3:20 PM CDT 07/12/2023 Narrative Resulting Agency Comment Lab Testing performed at: [facility] [address] ??[facility] [phone] Gloria Smith MD LAB - CHEMISTRY MARII ARAUJO [facility] INSURANCE BILL [address] [place] [address] * CBC WITH DIFFERENTIAL (07/12/2023 3:20 PM CDT) WBC 6.8 3.4 - 10.8 x10E3/uL [facility] INSURANCE BILL RBC 4.36 4.14 - 5.80 x10E6/uL [facility] INSURANCE BILL Hemoglobin 13.5 13.0 - 17.7 g/dL [facility] INSURANCE BILL Hematocrit 39.9 37.5 - 51.0 % [facility] INSURANCE BILL MCV 92 79 - 97 fL [facility] INSURANCE BILL MCH 31.0 26.6 - 33.0 pg [facility] INSURANCE BILL MCHC 33.8 31.5 - 35.7 g/dL [facility] INSURANCE BILL RDW 12.7 11.6 - 15.4 % [facility] INSURANCE BILL Platelet Count 184 150 - 450 x10E3/uL [facility] INSURANCE BILL Granulocytes % 54 Not Estab. % [facility] INSURANCE BILL Lymphocytes % 36 Not Estab. % [facility] INSURANCE BILL Monocytes % 6 Not Estab. % [facility] INSURANCE BILL Eosinophils % 3 Not Estab. % [facility] INSURANCE BILL Basophils % 1 Not Estab. % [facility] INSURANCE BILL Immature Cells NOT AVAILABLE [facility] INSURANCE BILL Comment:Result cannot be obt ained for this observation. Granulocytes Absolute 3.7 1.4 - 7.0 x10E3/uL [facility] INSURANCE BILL Lymphocytes Absolute 2.5 0.7 - 3.1 x10E3/uL [facility] INSURANCE BILL Monocytes Absolute 0.4 0.1 - 0.9 x10E3/uL [facility] INSURANCE BILL Eosinophils Absolute 0.2 0.0 - 0.4 x10E3/uL [facility] INSURANCE BILL Basophils Absolute 0.1 0.0 - 0.2 x10E3/uL [facility] INSURANCE BILL Immature Granulocytes 0 Not Estab. % [facility] INSURANCE BILL Immature Granulocytes Absolute 0.0 0.0 - 0.1 x10E3/uL [facility] INSURANCE BILL nRBC NOT AVAILABLE [facility] INSURANCE BILL Comment:Result cannot be obt ained for this observation. Comment Hematology NOT AVAILABLE [facility] INSURANCE BILL Comment: FASTING Result cannot be obtained for this observation. Blood BLOOD SPECIMEN / Unknown 07/12/2023 3:20 PM CDT 07/12/2023 Narrative Resulting Agency Comment Lab Testing performed at: [facility] [address] [facility] ??[facility] [phone] Gloria Smith MD LAB - HEMATOLOGY ORD ERABLES [facility] INSURANCE BILL [address] [place] [address] * C-REACTIVE PROTEIN (05/29/2023 2:35 PM PUBLIC HEALTH) C-Reactive Protein 0.49 <=0.50 mg/dL [facility] INSURANCE BILL Blood BLOOD SPECIMEN / Unknown 05/29/2023 2:35 PM PUBLIC HEALTH 05/29/2023 Narrative Resulting Agency Comment Lab Testing performed at: [place] [address] [address] ?? [place] [id number] Gloria Smith MD LAB - CHEMISTRY MARII ARAUJO Performing Organization Address [facility]/[employer] Co de Phone Number [facility] INSURANCE BILL [address] [place] [address] * (ABNORMAL) ERYTHROCYTE SEDIMENTATION RATE (05/29/2023 2:35 PM PUBLIC HEALTH) Erythrocyte Sedimentation Rate Westergren 23(H) 0 - 20 MM/HR [facility] INSURANCE BILL Blood BLOOD SPECIMEN / Unknown 05/29/2023 2:35 PM PUBLIC HEALTH 05/29/2023 Narrative Resulting Agency Comment Lab Testing performed at: [facility] [address] ?? [place] [phone] Gloria Smith MD LAB - HEMATOLOGY ORD ERABLES Performing Organization Address City/[facility] [address]/ZIP Co de Phone Number [facility] INSURANCE BILL [address] [place] [address] * (ABNORMAL) COMPREHENSIVE METABOLIC PANEL (05/29/2023 2:35 PM PUBLIC HEALTH) Glucose 107(H) 70 - 105 mg/dL [facility] INSURANCE BILL BUN 15 7 - 26 mg/dL [facility] INSURANCE BILL Creatinine 1.01 0.72 - 1.25 mg/dL [facility] INSURANCE BILL eGFR by CKD-EPI 85(L) >=90 mL/min/1.7 3 m2 [facility] INSURANCE BILL Sodium 136 136 - 145 mmol/L [facility] INSURANCE BILL Potassium 4.7 3.5 - 5.1 mmol/L [facility] INSURANCE BILL Chloride 99 98 - 107 mmol/L [facility] INSURANCE BILL CO2 28 22 - 29 mmol/L [facility] INSURANCE BILL Calcium 9.2 8.4 - 10.4 mg/dL [facility] INSURANCE BILL Protein Total 6.9 6.4 - 8.3 gm/dL [facility] INSURANCE BILL Albumin 3.8 3.4 - 5.0 gm/dL [facility] INSURANCE BILL Bilirubin Total 0.5 0.2 - 1.2 mg/dL [facility] INSURANCE BILL Alkaline Phosphatase 64 40 - 150 U/L [facility] INSURANCE BILL AST 19 5 - 34 U/L [facility] INSURANCE BILL ALT 16 0 - 55 U/L [facility] INSURANCE BILL Blood BLOOD SPECIMEN / Unknown 05/29/2023 2:35 PM PUBLIC HEALTH 05/29/2023 Narrative Resulting Agency Comment Lab Testing performed at: [address] ?? [facility] [phone] Gloria Smtih MD LAB - CHEMISTRY MARII ARAUJO [facility] INSURANCE BILL [address] [place] [address] * (ABNORMAL) CBC WITH DIFFERENTIAL (05/29/2023 2:35 PM PUBLIC HEALTH) Pathologist [facility] WBC 8.7 4.0 - 10.7 x10E9/L [facility] INSURANCE BILL RBC 3.90(L) 4.30 - 5.80 x10E12/L [facility] INSURANCE BILL Hemoglobin 12.1(L) 13.3 - 17.5 g/dL [facility] INSURANCE BILL Hematocrit 36.4(L) 38.7 - 51.1 % [facility] INSURANCE BILL MCV 93.3 80.0 - 98.0 fL [facility] INSURANCE BILL MCH 31.0 26.7 - 33.6 pg [facility] INSURANCE BILL MCHC 33.2 31.7 - 36.3 g/dL [facility] INSURANCE BILL RDW 13.1 11.3 - 14.8 % [facility] INSURANCE BILL Platelet Count 195 150 - 420 x10E9/L [facility] INSURANCE BILL Comment:MPV (CS) 10.9 fL 7. 8-11.4 Granulocytes % 57.7 41.0 - 74.0 % [facility] INSURANCE BILL Lymphocytes % 27.9 17.0 - 47.0 % [facility] INSURANCE BILL Monocytes % 9.3 3.0 - 11.0 % [facility] INSURANCE BILL Eosinophils % 4.0 0.0 - 7.0 % [facility] INSURANCE BILL Basophils % 0.8 0.0 - 1.6 % [facility] INSURANCE BILL Granulocytes Absolute 4.99 1.60 - 7.50 x10E9/L [facility] INSURANCE BILL Lymphocytes Absolute 2.42 1.00 - 4.40 x10E9/L [facility] INSURANCE BILL Monocytes Absolute 0.81 0.15 - 1.00 x10E9/L [facility] INSURANCE BILL Eosinophils Absolute 0.35 0.00 - 0.60 x10E9/L [facility] INSURANCE BILL Basophils Absolute 0.07 0.00 - 0.13 x10E9/L [facility] INSURANCE BILL Immature Granulocytes 0.3 0.0 - 1.0 % [facility] INSURANCE BILL Blood BLOOD SPECIMEN / Unknown 05/29/2023 2:35 PM PUBLIC HEALTH 05/29/2023 Narrative Resulting Agency Comment Lab Testing performed at: [place] [address] [address] ?? [place] [id number] Gloria Smith MD LAB - HEMATOLOGY ORD ERABLES [facility] INSURANCE BILL [address] [place] [address] documented in this encounter Visit Diagnoses Diagnosis 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)- Primary Right shoulder pain, unspecified chronicity 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) documented in this encounter Administered Medications Inactive Administered Medications - up to 3 most recent administrations Medication Order MAR Action Action Date Dose Rate Site lidocaine PF (Xylocaine MPF) 1 % injection Intra-articular, ONCE, 1 dose, On Sun05/29/23 at 1700 $ Given 05/29/2023 8:34 AM PUBLIC HEALTH Right Shoulder methylPREDNISolone acetate (DEPO-Medrol) injection 40 mg 40 mg, Intra-articular, ONCE, 1 dose, On Sun05/29/23 at 1700 $ Given 05/29/2023 8:36 AM PUBLIC HEALTH 40 mg Ri ght Shoulder documented in this encounter Care Teams Route Returner Relationship Specialty Start Date End Date Tomas Hyman MD [address] [facility] [address] [place] [address] PCP - General Family Medicine 09/05/18 Isidro Heredia MD Rheumatology 02/09/11 documented as of this encounter
--- OUTSIDE RECORDS SUMMARY | 2024-05-03 04:04 | XMS_ITS | Encounter Summary ---
Author Organization [facility] Address [address] [place] [address] Care Team Providers Care Engineer Station Mainline Name Role Phone Isidro Heredia MD Unavailable [phone] Tomas Hyman MD Primary Care Provider [phone] Reason for Visit * Reason Onset Date Comments MEDICATION REFILL 03/23/2023 Encounter Details Date Type Department Care Team (Late st Contact Info) Description 03/23/2023 Refill [facility] Medical [facility] - Rheumatology [address] [place] [address] Gloria Smith MD [address] [place] [address] MEDICATION REFILL Social History Tobacco Use [...] * Telephone Encounter - Carey Loza - 03/26/2023 8:54 AM CST NON-BIOLOGIC REFILL REQUEST Last OV: 01/30/23 Next Appointment: 05/29/2023 Last Fill: Recent Labs Component Name 01/30/23 1158 11/29/22 0911 07/27/22 1453 WBC 9.1 7.0 6.8 HGB 12.0 11.5* 13.1 PLTCOUNT 151* 160 157 MCV 97.7 94.7 89 Recent Labs Component Name 01/30/23 1158 11/29/22 0911 07/27/22 1454 CREATININE 0.97 0.95 0.99 BUN 17 15 11 SODIUM 136 138 129* POTASSIUM 4.9 4.0 4.8 Recent Labs Component Name 01/30/23 1158 11/29/22 0911 07/27/22 1454 07/27/21 1107 02/08/21 1645 10/19/20 1540 08/24/20 1233 EGFR 89* >90 88 - 71 >60 >60 EGFRAFR - - - - 82 >60 >60 - = values in this interval not displayed. Recent Labs Component Name 01/30/23 1158 11/29/22 0911 07/27/22 1454 AST 24 21 26 ALT 20 16 18 ALKPHOS 62 49 48 TBIL 0.5 0.6 0.6 Last ESR: Recent Labs Component Name 11/29/22 0911 02/08/21 1645 06/29/20 1410 SEDRATE 11 5 13 Last 3 CRP: Recent Labs Component Name 11/29/22 0911 02/08/21 1645 06/29/20 1410 CRP <0.20 <1 <0.20 Last Eye exam (if refill for hydroxychloroquine): RATORY DIRECTOR documented in this encounter Plan of Treatment Upcoming Encounters Date Type Department Care Team (Late st Contact Info) Description 06/03/2024 1:00 PM LABORATORY DIRECTOR Appointment [facility] - Rheumatology [address] [place] [address] 06/03/2024 2:00 PM LABORATORY DIRECTOR Office Visit [facility] - Rheumatology [address] [place] [address] Gloria Smith MD [address] [place] [phone] documented as of this encounter Visit Diagnoses Diagnosis Chronic neck pain Cervicalgia Chronic back pain, unspecified back location, unspecified back pain laterality 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) documented in this encounter Care Teams Engineer Station Mainline Relationship Specialty Start Date End Date Tomas Hyman MD [address] [facility] [address] [place] [address] PCP - General Family Medicine 09/05/18 Isidro Heredia MD Rheumatology 02/09/11 documented as of this encounter
--- OUTSIDE RECORDS SUMMARY | 2024-05-03 04:04 | XMS_ITS | Encounter Summary ---
Author Organization [facility] Address [address] [facility] [place] [address] Care Team Providers Care Executive Casino Host Name Role Phone Isidro Heredia MD Unavailable [phone] Tomas Hyman MD Primary Care Provider [phone] Encounter Details Date Type Department Care Team (Latest Contact Info) Description 08/02/2022 Travel Social History Tobacco Use Types Packs/Day [...] suspected to have Coronavirus/COVID-19? No / Unsure 08/02/2022 11:47 AM CDT documented as of this encounter Plan of Treatment Upcoming Encounters Date Type Department Care Team (Late st Contact Info) Description 06/03/2024 1:00 PM PLACEMENT DIRECTOR Appointment [facility] - Rheumatology [address] [place] [address] 06/03/2024 2:00 PM PLACEMENT DIRECTOR Office Visit [facility] - Rheumatology [address] [place] [address] Gloria Smith MD [address] [place] [phone] documented as of this encounter Visit Diagnoses Not on filedocumented in this encounter Care Teams Executive Casino Host Relationship Specialty Start Date End Date Tomas Hyman MD [address] [place] [address] PCP - General Family Medicine 09/05/18 Isidro Heredia MD Rheumatology 02/09/11 documented as of this encounter
--- OUTSIDE RECORDS SUMMARY | 2024-05-03 04:04 | XMS_ITS | Encounter Summary ---
Author Organization [facility] Address [address] [place] [address] Care Team Providers Care Ward Attendant Name Role Phone Isidro Heredia MD Unavailable [phone] Tomas Hyman MD Primary Care Provider [phone] Reason for Visit * Reason Onset Date Comments MEDICATION REFILL 02/27/2022 Encounter Details Date Type Department Care Team (Late st Contact Info) Description 02/27/2022 Refill [facility] Medical [facility] - Rheumatology [address] [place] [address] Gloria Smith MD [address] [place] [phone] MEDICATION REFILL Social History Tobacco Use [...] encounter Miscellaneous Notes * Telephone Encounter - Arian Fernando RN - 03/01/2022 8:04 AM CDT LMOR for patient and sent [facility] message informing of Dr. Smith's below response. * Telephone Encounter - Gloria Smith MD - 02/28/2022 6:16 PM CDT Yes to renewing gabapentin. Dx: neuropathy Would defer aspirin and pantoprazole to pcp for retirement management. Those were started by dr. Heredia who is both associate professor of art history and pcp. * Telephone Encounter - Arian Fernando RN - 02/28/2022 2:15 PM CDT Tizanidine refilled for 4mg BID PRN per Dr. Smith. * Telephone Encounter - Arian Fernando RN - 02/28/2022 11:39 AM CDT Patient chart, labs and allergies reviewed and methotrexate and celebrex refilled per last office visit note. Will need to clarify dosing on tizanidine as refill is for bedtime 4mg and last note mentions continuing 4mg BID PRN. Will also see if Dr. Smith is okay continuing aspirin 81mg daily, pantoprazole 40mg daily and gabapentin 300mg TID. Please advise on diagnosis for aspirin, gabapentin and pantoprazole if so. Patient verbalized understanding that updated labs are needed in 1 month for methotrexate monitoring. NON-BIOLOGIC REFILL REQUEST Last OV: 02/10/2022 Next Appointment: 05/19/2022 Last Fill: Methotrexate- 11/14/2021 Prednisone- 11/14/2021 Celebrex- 11/14/2021 Aspirin- 11/14/2021 Pantoprazole- 11/14/2021 Gabapentin- 11/14/2021 12/28/2021 CBC/CMP Reviewed Recent Labs Component Name 07/27/21 1107 02/08/21 1645 10/19/20 1540 WBC 8.1 7.5 9.5 HGB 12.4* 12.8* 13.7 PLTCOUNT 171 151 179 MCV 93 88 90.7 Recent Labs Component Name 07/27/21 1107 02/08/21 1645 10/19/20 1540 CREATININE 1.23 1.13 1.18 BUN 16 8 22 SODIUM 138 136 137 POTASSIUM 3.9 4.2 4.0 Recent Labs Component Name 07/27/21 1107 02/08/21 1645 10/19/20 1540 08/24/20 1233 EGFR 68 71 >60 >60 EGFRAFR - 82 >60 >60 Recent Labs Component Name 07/27/21 1107 02/08/21 1645 10/19/20 1540 AST 32 27 18 ALT 27 20 16 ALKPHOS 59 63 70 TBIL 0.7 0.7 0.6 Recent Labs Component Name 02/10/22 0946 [id number] 52.1 No results for input(s): URICACID in the last 91017 hours. Last ESR: Recent Labs Component Name 02/08/21 1645 06/29/20 1410 02/06/20 1332 SEDRATE 5 13 12 Last 3 CRP: Recent Labs Component Name 02/08/21 1645 06/29/20 1410 02/06/20 1332 CRP <1 <0.20 0.21 * Telephone Encounter - Cristina León MA - 02/28/2022 9:05 AM CDT Chalino Deng Allergies Allergen Reactions ??? Simvastatin Unknown ??? Plaquenil [Hydroxychloroquine Sulfate] Eye vision disturbance ??? Tuberculin Ppd Positive , CXR yrly Dx inactive TB Requested Prescriptions Pending Prescriptions Disp Refills ??? tiZANidine (Zanaflex) 4 MG tablet 30 tablet 1 Sig: Take 1 (one) tablet by mouth at bedtime ??? aspirin EC (Ecotrin) 81 MG tablet 90 tablet 0 Sig: Take 1 (one) tablet by mouth once daily ??? celecoxib (CeleBREX) 200 MG capsule 180 capsule 0 Sig: Take 1 (one) capsule by mouth 2 times daily ??? gabapentin (Neurontin) 300 MG capsule 270 capsule 0 Sig: Take 1 (one) capsule by mouth 3 times daily ??? pantoprazole EC (Protonix) 40 MG tablet 90 tablet 0 Sig: Take 1 (one) tablet by mouth once daily ??? methotrexate 2.5 MG tablet 24 tablet 0 Sig: Take 6 (six) tablets by mouth every 7 days Last Refill: 11-14-21 Last Office Visit: 02/10/2022 Next Office Visit: 05-19-22 documented in this encounter Plan of Treatment Upcoming Encounters Date Type Department Care Team (Late st Contact Info) Description 06/03/2024 1:00 PM HEARING CARE PROFESSIONAL Appointment [facility] - Rheumatology [address] [place] [address] [phone] 06/03/2024 2:00 PM HEARING CARE PROFESSIONAL Office Visit [facility] - Rheumatology [address] [place] [address] Gloria Smith MD [address] [place] [phone] documented as of this encounter Procedures Procedure Name Priority Date/Time Associated Diagnosis Comments CBC W AUTO DIFFERENTIAL Routine 04/12/2022 3:14 PM HEARING CARE PROFESSIONAL High risk medication use COMPREHENSIVE METABOLIC PANEL Routine 04/12/2022 3:14 PM HEARING CARE PROFESSIONAL High risk medication use documented in this encounter Results * (ABNORMAL) COMPREHENSIVE METABOLIC PANEL (04/12/2022 3:14 PM HEARING CARE PROFESSIONAL) Glucose 106(H) 70 - 99 mg/dL [facility] INSURANCE BILL BUN 17 6 - 24 mg/dL [facility] INSURANCE BILL Creatinine 1.08 0.76 - 1.27 mg/dL [facility] INSURANCE BILL eGFR by CKD-EPI 79 >59 mL/min/1.7 3 [facility] INSURANCE BILL BUN/Creatinine Ratio 16 9 - 20 [facility] INSURANCE BILL Sodium 139 134 - 144 mmol/L [facility] INSURANCE BILL Potassium 4.1 3.5 - 5.2 mmol/L [facility] INSURANCE BILL Chloride 100 96 - 106 mmol/L [facility] INSURANCE BILL CO2 26 20 - 29 mmol/L [facility] INSURANCE BILL Calcium 9.5 8.7 - 10.2 mg/dL [facility] INSURANCE BILL Protein Total 6.8 6.0 - 8.5 g/dL [facility] INSURANCE BILL Albumin 4.2 3.8 - 4.9 g/dL [facility] INSURANCE BILL Globulin Total 2.6 1.5 - 4.5 g/dL [facility] INSURANCE BILL Albumin/Globulin Ratio 1.6 1.2 - 2.2 [facility] INSURANCE BILL Bilirubin Total 0.3 0.0 - 1.2 mg/dL [facility] INSURANCE BILL Alkaline Phosphatase 71 44 - 121 IU/L [facility] INSURANCE BILL AST 26 0 - 40 IU/L [facility] INSURANCE BILL ALT 19 0 - 44 IU/L [facility] INSURANCE BILL Comment:FASTING Blood BLOOD SPECIMEN / Unknown 04/12/2022 3:14 PM HEARING CARE PROFESSIONAL 04/12/2022 Narrative Resulting Agency Comment Lab Testing performed at: [facility] ??[facility] [id number] Gloria Smith MD LAB - CHEMISTRY CALEBE VAN [facility] INSURANCE BILL [address] [place] [address] * (ABNORMAL) CBC WITH DIFFERENTIAL (04/12/2022 3:14 PM HEARING CARE PROFESSIONAL) WBC 8.2 3.4 - 10.8 x10E3/uL [facility] INSURANCE BILL RBC 4.15 4.14 - 5.80 x10E6/uL [facility] INSURANCE BILL Hemoglobin 12.9(L) 13.0 - 17.7 g/dL [facility] INSURANCE BILL Hematocrit 38.2 37.5 - 51.0 % [facility] INSURANCE BILL MCV 92 79 - 97 fL [facility] INSURANCE BILL MCH 31.1 26.6 - 33.0 pg [facility] INSURANCE BILL MCHC 33.8 31.5 - 35.7 g/dL [facility] INSURANCE BILL RDW 13.3 11.6 - 15.4 % [facility] INSURANCE BILL Platelet Count 157 150 - 450 x10E3/uL [facility] INSURANCE BILL Granulocytes % 46 Not Estab. % [facility] INSURANCE BILL Lymphocytes % 39 Not Estab. % [facility] BILL Monocytes % 10 Not Estab. % [facility] BILL Eosinophils % 4 Not Estab. % [facility] INSURANCE BILL Basophils % 1 Not Estab. % [facility] INSURANCE BILL Immature Cells NOT AVAILABLE [facility]URANCE BILL Comment:Result cannot be obt ained for this observation. Granulocytes Absolute 3.8 1.4 - 7.0 x10E3/uL [facility] INSURANCE BILL Lymphocytes Absolute 3.2(H) 0.7 - 3.1 x10E3/uL [facility] INSURANCE BILL Monocytes Absolute 0.8 0.1 - 0.9 x10E3/uL [facility] INSURANCE BILL Eosinophils Absolute 0.3 0.0 - 0.4 x10E3/uL [facility] INSURANCE BILL [...] this observation. Blood BLOOD SPECIMEN / Unknown 04/12/2022 3:14 PM HEARING CARE PROFESSIONAL 04/12/2022 Narrative Resulting Agency Comment Lab [facility] performed at: [facility] [address] [facility] ??[facility] [phone] Gloria Smith MD LAB - HEMATOLOGY ORD ERABLES [facility] INSURANCE BILL [address] [place] [address] documented in this encounter Visit Diagnoses Diagnosis Chronic neck pain- Primary Cervicalgia 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) Chronic back pain, unspecified back location, unspecified back pain laterality High risk medication use Encounter for long-term (current) use of other medications Neuropathy Mononeuritis of unspecified site documented in this encounter Care Teams Ward Attendant Relationship Specialty Start Date End Date Tomas Hyman MD [address] [facility] [address] [place] [address] PCP - General Family Medicine 09/05/18 Isidro Heredia MD Rheumatology 02/09/11 documented as of this encounter
--- OUTSIDE RECORDS SUMMARY | 2024-05-03 04:04 | XMS_ITS | Encounter Summary ---
Author Organization [facility] Address [address] [facility] [place] [address] Care Team Providers Care Roller Shop Supervisor Name Role Phone Isidro Heredia MD Unavailable [phone] Tomas Hyman MD Primary Care Provider [phone] Reason for Visit * Treatment (Elective) - Closed Specialty Diagnoses / Procedures Referred By Contsarahi t Referred To Contact Diagnoses 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) Procedures AL GOLIMUMAB FOR IV USE 1MG Gloria Smith MD [address] [place] [address] [address] Referral ID Status Reason Start Date Expiration Date Visits Re quested Visits Authorized [id number] Closed 05/22/2022 04/29/2023 12 12 Encounter Details Date Type Department Care Team (Latest Contact Info) Description 08/02/2022 11:20 AM CDT - 08/02/2022 11:59 PM CDT Hospital Encounter [facility] [address] [place] [address] Tomas Hyman MD [address] [place] [address] Discharge Disposition: Home or Self [...] Recorded In the last 10 days, have chrissy u been in contact with someone who was confirmed or suspected to have Coronavirus/COVID-19? No / Unsure 08/02/2022 11:47 AM CDT documented as of this encounter Last Filed Vital Signs Vital Sign Reading Time Taken Comments Blood Pressure 109/65 08/02/2022 12:09 PM CDT Pulse 76 08/02/2022 12:09 PM CDT Temperature 36.9 ??C (98.4 ??F) 08/02/2022 12:09 PM C DT Respiratory Rate 18 08/02/2022 12:09 PM CDT Oxygen Saturation 97% 08/02/2022 12:09 PM CDT Inhaled Oxygen Concentration - - Weight 92.3 kg (203 lb 6.4 oz) 08/02/2022 12:02 PM CDT Height - - Body Mass Index 29.18 07/05/2022 10:45 AM CAMP COUNSELOR documented in this encounter Medications at Time of Discharge Medication Sig Dispensed Refills Start Date End Date aspirin EC (ECOTRIN) 81 MG tablet Take 1 (one) tablet by mouth once daily 90 tablet 11/14/2021 atorvastatin (LIPITOR) 40 MG tablet Take 1 (one) tablet by mouth at bedtime ldrqeblzatg-vopb-fz lysorb, PF, 0.5-1-0.5 % SOLN Instill 1 [...] as of this encounter Progress Notes * Kae Shell, EMERGENCY ROOM TECHNICIAN-SERVICE CENTER TECHNICIAN - 08/02/2022 1:30 PM CDT Chalino Deng 1960 Patient completed scheduled Treatment at [facility]. Please call with any questions [phone]. BP 109/65 Pulse 76 Temp 98.4 ??F Resp 18 Wt 92.3 kg (203 lb 6.4 oz) SpO2 97% Medications 0.9% NaCl injection 1-40 mL (has no administration in time range) golimumab (Simponi Aria) 185 mg in 0.9% NaCl IV 100 mL infusion (0 mg Intravenous Stopped 08/02/22 1320) Kae Shell RN 08/02/2022 1:31 PM documented in this encounter Plan of Treatment Upcoming Encounters Date Type Department Care Team (Late st Contact Info) Description 06/03/2024 1:00 PM CAMP COUNSELOR Appointment [facility] - Rheumatology [address] [place] [address] 06/03/2024 2:00 PM CAMP COUNSELOR Office Visit [facility] - Rheumatology [address] [place] [address] Gloria Smith MD [address] [place] [phone] documented as of this encounter Visit Diagnoses Diagnosis 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)- Primary documented in this encounter Administered Medications Inactive Administered Medications - up to 3 most recent administrations Medication Order MAR Action Action Date Dose Rate Site golimumab (Simponi Aria) 185 mg in 0.9% NaCl IV 100 mL infusion 185 mg (rounded from 184.6 mg = 2 mg/kg ? 92.3 kg), at 200 mL/hr, Administer over 30 Minutes, Intravenous, ONCE, 1 dose, On Sun08/02/22 at 1215, Total volume to be infused with estimated MFR overfill 110 mL. Use in-line low protein binding 0.22 micrometer filter. $ New Bag/Syringe 08/02/2022 12:50 PM CDT 185 mg 200 mL/hr documented in this encounter Care Teams Roller Shop Supervisor Relationship Specialty Start Date End Date Tomas Hyman MD [address] [place] [address] PCP - General Family Medicine 09/05/18 Isidro Heredia MD Rheumatology 02/09/11 documented as of this encounter
--- OUTSIDE RECORDS SUMMARY | 2024-05-03 04:04 | XMS_ITS | Encounter Summary ---
Author Organization [facility] Address [address] [facility] [place] [address] Care Team Providers Care Pie Maker Name Role Phone Isidro Heredia MD Unavailable [phone] Tomas Hyman MD Primary Care Provider [phone] Reason for Visit * Treatment (Elective) - Closed Specialty Diagnoses / Procedures Referred By Lawrence shah Referred To Contact Diagnoses 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) Procedures [place] GOLIMUMAB FOR IV USE 1MG Gloria Smith MD [address] [place] [address] [address] Referral ID Status Reason Start Date Expiration Date Visits Re quested Visits Authorized [id number] Closed 05/22/2022 04/29/2023 12 12 Encounter Details Date Type Department Care Team (Late st Contact Info) Description 11/29/2022 9:06 AM CDT - 11/29/2022 11:59 PM CDT Hospital Encounter [facility] Medical [facility] - Rheumatology [address] [place] [address] Gloria Smith MD [address] [place] [address] Rheumatology Discharge Disposition: Home or [...] Sign Reading Time Taken Comments Blood Pressure 140/73 11/29/2022 10:40 AM CDT Pulse 60 11/29/2022 10:40 AM CDT Temperature 36.7 ??C (98 ??F) 11/29/2022 9:59 AM CDT Respiratory Rate - - Oxygen Saturation - - Inhaled Oxygen Concentration - - Weight 89.9 kg (198 lb 3.2 oz) 11/29/2022 9:59 A M CDT Height - - Body Mass Index 28.44 07/05/2022 10:45 AM DROP HAMMER SET UP OPERATOR documented in this encounter Discharge Instructions * Discharge Instructions* Shelby Higgins RN - 11/29/2022 10:10 AM CDT Discharge Instructions [facility] Rheumatology You have received your infusion [...] they should not be ignored. Sunday through 01-02 call the office at [phone]. After hours or on the weekend call [...] tablet by mouth 2 times daily 09/04/2022 rauijwocsye-nowa-epng sorb, PF, 0.5-1-0.5 % SOLN Instill 1 [...] by mouth every 7 days 72 tablet 11/28/2022 03/23/2023 predniSONE (Deltasone) 5 MG tabletIndications:Rhe umatoid 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) Take 1 (one) tablet by mouth 2 times daily 180 tablet 1 11/28/2022 07/04/2023 tiZANidine (Zanaflex) 4 MG tabletIndications:Chr onic neck pain,Chronic back pain, unspecified back location, unspecified back pain laterality Take 1 (one) tablet by mouth 2 times daily as needed for Muscle Spasms 60 tablet 1 09/04/2022 03/23/2023 documented as of this encounter Progress Notes * Shelby Higgnis, RN - 11/29/2022 10:10 AM CDT JOSE Allred Deng [id number] 11/29/2022 Diagnosis: Rheumatoid arthritis without rheumatoid factor, multiple sites (CMS/HCC) [M06.09]. Pt denies symptoms of infection or antibiotic use, no open wounds, or recent surgery, or plans for surgery in the next couple of weeks. Pt is aware that we use the 0-10 pain scale to assess discomfort. 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 front end assistant pt signs consent for treatment for this infusion. BP 117/74 Pulse 66 Temp 98 ??F Wt 89.9 kg (198 lb 3.2 oz) ?? SCHEDULED MEDICATIONS: ?? golimumab (Simponi Aria) 180 mg in 0.9% NaCl IV 100 mL infusion, Intravenous, Once ?? Number of 24 gauge 3/4 inch placed in Right antecubital ?? 1 attempt(s). Patient monitored throughout procedure. Last OV-09/19 Next OV-01/20 TB Gold-n/a Hepatitis Screen-n/a Last Routine Labs-11/19 Next Labs Due-02/19 Tolerated well? Yes Next treatment? q 56 days Shelby Higgins RN documented in this encounter Plan of Treatment Upcoming Encounters Date Type Department Care Team (Late st Contact Info) Description 06/03/2024 1:00 PM DROP HAMMER SET UP OPERATOR Appointment [facility] - Rheumatology [address] [place] [address] [phone] 06/03/2024 2:00 PM DROP HAMMER SET UP OPERATOR Office Visit [facility] - Rheumatology [address] [place] [address] Gloria Smith MD [address] [place] [phone] documented as of this encounter Visit Diagnoses [...] 30 Minutes, Intravenous, ONCE, 1 dose, On Sun11/29/22 at 1015, Use in-line low protein binding 0.22 micrometer filter. $ New Bag/Syringe 11/29/2022 10:06 AM CDT 180 mg 200 mL/hr documented in this encounter Care Teams Pie Maker Relationship Specialty Start Date End Date Tomas Hyman MD [address] [address] [address] [place] [address] PCP - General Family Medicine 09/05/18 Isidro Heredia MD Rheumatology 02/09/11 documented as of this encounter
--- OUTSIDE RECORDS SUMMARY | 2024-05-03 04:04 | XMS_ITS | Encounter Summary ---
Author Organization [facility] Address [address] [facility] [place] [address] Care Team Providers Care Microsoft Office Instructor Name Role Phone Isidro Heredia MD Unavailable [phone] Tomas Hyman MD Primary Care Provider [phone] Reason for Visit * Reason Onset Date Comments MEDICATION REFILL 04/13/2021 Encounter Details Date Type Department Care Team (Late st Contact Info) Description 04/13/2021 Refill [facility] Medical [facility] - Rheumatology [address] [place] [address] Gloria Smith MD [address] [place] [phone] MEDICATION REFILL Social History Tobacco Use [...] COVID-19? No / Unsure 04/05/2021 1:49 PM KEYMODULE ASSEMBLY MACHINE TENDER documented as of this encounter Miscellaneous Notes * Telephone Encounter - Arian Fernando RN - 04/14/2021 9:00 AM CST Okay per Dr. Smith to renew all of the below medications. ODULE ASSEMBLY MACHINE TENDER * Telephone Encounter - Arian Fernando RN - 04/13/2021 9:55 AM CST PA still pending for Methotrexate injectable. NON-BIOLOGIC REFILL REQUEST Last OV: 02/08/2021 Next Appointment: 06/03/2021 Last Fill: Methotrexate- 02/08/2021 Pantoprazole- 01/19/2021 Gabapentin- 01/19/2021 Prednisone- 01/18/2021 Celebrex- 01/18/2021 Aspirin- 01/19/2021 Recent Labs Component Name 02/08/21 1645 10/19/20 1540 08/24/20 1233 WBC 7.5 9.5 6.3 HGB 12.8* 13.7 12.1 PLTCOUNT 151 179 156 MCV 88 90.7 95.3 Recent Labs Component Name 02/08/21 1645 10/19/20 1540 08/24/20 1233 CREATININE 1.13 1.18 1.14 BUN 8 22 16 SODIUM 136 137 139 POTASSIUM 4.2 4.0 4.0 Recent Labs Component Name 02/08/21 1645 10/19/20 1540 08/24/20 1233 EGFR 71 >60 >60 EGFRAFR 82 >60 >60 Recent Labs Component Name 02/08/21 1645 10/19/20 1540 08/24/20 1233 AST 27 18 21 ALT 20 16 15 ALKPHOS 63 70 65 TBIL 0.7 0.6 0.5 Last ESR: Recent Labs Component Name 02/08/21 1645 06/29/20 1410 02/06/20 1332 SEDRATE 5 13 12 Last 3 CRP: Recent Labs Component Name 02/08/21 1645 06/29/20 1410 02/06/20 1332 CRP <1 <0.20 0.21 ODULE ASSEMBLY MACHINE TENDER * Telephone Encounter - Manuela Mirza - 04/13/2021 8:52 AM CST Last refill-01/18/2021 and02/08/2021 Last OV-02/08/2021 Next OV-06/03/2021 ODULE ASSEMBLY MACHINE TENDER documented in this encounter Plan of Treatment Upcoming Encounters Date Type Department Care Team (Late st Contact Info) Description 06/03/2024 1:00 PM KEYMODULE ASSEMBLY MACHINE TENDER Appointment [facility] - Rheumatology [address] [place] [address] 06/03/2024 2:00 PM KEYMODULE ASSEMBLY MACHINE TENDER Office Visit [facility] - Rheumatology [address] [place] [address] Gloria Smith MD [address] [place] [phone] documented as of this encounter Visit Diagnoses Diagnosis 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) documented in this encounter Care Teams Microsoft Office Instructor Relationship Specialty Start Date End Date Tomas Hyman MD [address] [facility] [address] [place] [address] PCP - General Family Medicine 09/05/18 Isidro Heredia MD Rheumatology 02/09/11 documented as of this encounter
--- OUTSIDE RECORDS SUMMARY | 2024-05-03 04:04 | XMS_ITS | Encounter Summary ---
Author Organization [facility] Address [address] [facility] [place] [address] Care Team Providers Care Supervisor Roller Printing Name Role Phone Isidro Heredia MD Unavailable [phone] Tomas Hyman MD Primary Care Provider [phone] Reason for Visit * Reason Comments Follow-up Encounter Details Date Type Department Care Team (Late st Contact Info) Description 09/02/2021 11:00 AM CDT Office Visit [facility] - Rheumatology [address] [place] [address] Gloria Smith MD [address] [place] [phone] Rheumatoid arthritis of multiple sites with [...] Sign Reading Time Taken Comments Blood Pressure 107/75 09/02/2021 10:54 AM CDT Pulse 81 09/02/2021 10:54 AM CDT Temperature - - Respiratory Rate 20 09/02/2021 10:54 AM CDT Oxygen Saturation 100% 09/02/2021 10:54 AM CDT Inhaled Oxygen Concentration - - Weight 98.2 kg (216 lb 9.6 oz) 09/02/2021 10:54 AM CDT Height 177.8 cm (5' 10 ) 09/02/2021 10:54 AM CDT Body Mass Index 31.08 09/02/2021 10:54 AM CDT documented in this encounter Patient Instructions * Patient Instructions* Gloria Smith MD - 09/02/2021 11:42 AM CDT Continue methotrexate 6 tablets per week, folic acid daily Discussed with Ophthalmology whether it is okay to take a high-dose prednisone taper. Higher dose prednisone taper: 60 mg daily, gradually decrease to 20 mg daily, and then resume 5 mg b.i.d.. Increase tizanidine to 4 mg twice a day as needed. Restart Humira injection each week for 3 weeks, and then decrease to 1 injection every 2 weeks. documented in this encounter Progress Notes * Gloria Smith MD - 09/02/2021 11:21 AM CDT CHIEF COMPLAINTS: Follow-up on rheumatoid arthritis HISTORY OF PRESENT ILLNESS: Chalino Deng is a 60 year old white male with past medical history of seropositive rheumatoid arthritis, retinal detachment status post surgery, diverticulitis, sepsis on Actemra, recurrent UTIs, recurrent prostatitis, chronic back pain and lumbar stenosis and spondylosis status post epidural injections, history of shingles, who returns for follow-up on rheumatoid arthritis. (Raquel 1:160, ccp 22+ in 2009, rf 10.2) Last seen on June 03, 2021. Took Humira 2 doses and noticed the improvement of joint pain. Had retinal detachment status post surgery. Held the third does. Has been released by the retinal specialist to restart Humira again. Held mtx for 3 weeks due to the surgery. Pain worsened after stopping medicine. Missed NAVEEN due to eye surgery. Has significant lower back pain radiating down to the right lower extremity. Takes pred 20mg total a day lately due to pain. Takes muscle relaxer. Pain in shoulders, knees, ankles. Has difficulty sleeping at night. MS long. Medication history: Humira 06/2021-present mtx 2004-06/2020, inadequate, [...] History: Diagnosis Date ??? RA (rheumatoid arthritis) Past Surgical History: Procedure Laterality Date ??? Tonsillectomy at 9 years old ALLERGIES: Allergies Allergen Reactions ??? Plaquenil [Hydroxychloroquine Sulfate] Eye vision disturbance [...] except as per HPI. PHYSICAL EXAM: BP 107/75 (BP SITE: LEFT ARM, BP POSITION: SITTING, BP CUFF SIZE: 11) Pulse 81 Resp 20 Ht 1.778 m (5' 10 ) Wt 98.2 kg (216 lb 9.6 oz) SpO2 100% BMI 31.08 kg/m2 General: in no acute distress. HEENT: anicteric sclera, no conjunctival injection, PERRL, no oral ulcers. Neck: supple, nontender, no lymphadenopathy Chest: nontender. Abdomen: soft, nontender Extremities: no peripheral swelling, clubbing or cyanosis Skin: No rash Neurologic: Moves all extremities MSK: Tenderness in bilateral shoulders, worse on the left. Tenderness in the left knee, bilateral ankles. No obvious tenderness in wrists, hands, elbows. LABORATORY: Recent Labs Component Name 07/27/21 11002/08/21 16410/19/20 1540 WBC 8.1 7.5 9.5 RBC 4.09* [...] 68 71 >60 Recent Labs Component Name 02/08/21164406/29/20 1410 02/06/20 1332 CRP <1 <0.20 0.21 Recent Labs Component Name 02/08/21 16406/29/20 1410 02/06/20 1332 SEDRATE 5 13 12 PROCEDURE: Procedure Name: Right shoulder steroid injection Indication: Pain Side: Right Approach: posterior Date of procedure: 06/03/2021 Informed Consent and Counseling: The procedure, risks, [...] of 1 ml of Lidocaine 1% and Kenalog (Triamcinolone Acetonide) 40 mg was injected into the joint using a 25-g x 1 1/2-in needle. Gentle aspiration before injection didn???t show any blood. A dressing was applied to the area. The patient tolerated the procedure well without complications.The standard post-procedure care was explained. ASSESSMENT & PLAN: Current medication: Humira 40 mg every 2 weeks, MTX 15mg weekly, folic acid 1mg, prednisone 5 mg bid, Celebrex 200 mg b.i.d. 60 year old white male with: Seropositive rheumatoid arthritis Osteoporosis Chronic back pain and lumbar radiculopathy High-risk medication -- Monitoring for toxicity of MTX with lab tests: CBC and CMP every 3 months to monitor bone marrowfunction, liver function and kidney function. (Raquel 1:160, ccp 22+ in 2009, rf 10.2, esr-, crp) Follow-up for rheumatoid arthritis. Noticed improvement on Humira but had to stop the medicine due to retinal detachment. He has been released by retinal surgeon to restart Humira. Taking prednisone 20 mg now that helps the rheumatoid arthritis. Has significant lower back pain and right sciatica symptoms. Rheumatoid arthritis - continue Humira. He will increase the dose to 40 mg weekly for the first 3 weeks, and then decrease to every 2 weeks. - restart methotrexate. - recent CBC and CMP were stable - return to clinic in 3 months Chronic neck and back pain - follows with Pain Management and received epidural injections. Off regular Percocet since July,. Declined lumbar surgery. - ordered prednisone 60 mg taper, pending his chief meter reader's approval. Followed by 5 mg b.i.d. at baseline. - he can increase tizanidine to 4 mg b.i.d. p.r.n.. Osteoporosis - Will repeat DEXA bone density scan - took alendronate from [id number]. The total time spent today was 40 minutes performing chart prep, review of data and visit with the patient. documented in this encounter Plan of Treatment Upcoming Encounters Date Type Department Care Team (Late st Contact Info) Description 06/03/2024 1:00 PM SEMICONDUCTOR BONDER Appointment [facility] - Rheumatology [address] [place] [address] [phone] 06/03/2024 2:00 PM SEMICONDUCTOR BONDER Office Visit [facility] - Rheumatology [address] [place] [address] [phone] Gloria Smith MD [address] [place] [phone] documented as of this encounter Visit Diagnoses Diagnosis 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)- Primary documented in this encounter Care Teams Supervisor Roller Printing Relationship Specialty Start Date End Date Tomas Hyman MD [address] [place] [address] PCP - General Family Medicine 09/05/18 Isidro Heredia MD Rheumatology 02/09/11 documented as of this encounter
--- OUTSIDE RECORDS SUMMARY | 2024-05-03 04:04 | XMS_ITS | Encounter Summary ---
Author Organization [facility] Address [address] [facility] [place] [address] Care Team Providers Care Paint Roller Assembler Name Role Phone Isidro Heredia MD Unavailable [phone] Tomas Hyman MD Primary Care Provider [phone] Reason for Visit * Reason Onset Date Comments Results 07/28/2021 Encounter Details Date Type Department Care Team (Late st Contact Info) Description 07/28/2021 Telephone [facility] - Family Medicine [address] [place] [address] Gloria Smith MD [address] [place] [phone] Results Social History Tobacco Use Types Packs/Day Years [...] encounter Miscellaneous Notes * Telephone Encounter - Mariya Nichole MA - 07/28/2021 11:36 AM CDT Patient is aware and had understanding that labs showed Very mild anemia since 01/2021. -- follow up with pcp. Normal liver kidney function. * Telephone Encounter - Mariya Nichole MA - 07/28/2021 11:36 AM CDT ----- Message from Gloria Smith MD sent at 07/28/2021 11:04 AM CDT ----- Very mild anemia since 01/2021. -- follow up with pcp. Normal liver kidney function. documented in this encounter Plan of Treatment Upcoming Encounters Date Type Department Care Team (Late st Contact Info) Description 06/03/2024 1:00 PM BATTERY CHARGER Appointment [facility] - Rheumatology [address] [place] [address] 06/03/2024 2:00 PM BATTERY CHARGER Office Visit [facility] - Rheumatology [address] [place] [address] Gloria Smith MD [address] [place] [phone] documented as of this encounter Visit Diagnoses Not on filedocumented in this encounter Care Teams Paint Roller Assembler Relationship Specialty Start Date End Date Tomas Hyman MD [address] [facility] [address] [place] [address] PCP - General Family Medicine 09/05/18 Isidro Heredia MD Rheumatology 02/09/11 documented as of this encounter
--- OUTSIDE RECORDS SUMMARY | 2024-05-03 04:04 | XMS_ITS | Encounter Summary ---
Author Organization [facility] Address [address] [facility] [place] [address] Care Team Providers Care Store Worker Name Role Phone Isidro Heredia MD Unavailable [phone] Tomas Hyman MD Primary Care Provider [phone] Encounter Details Date Type Department Care Team (Latest Contact Info) Description 04/05/2021 Travel Social History Tobacco Use Types Packs/Day [...] COVID-19? No / Unsure 04/05/2021 1:49 PM DOCUMENTATION LIAISON documented as of this encounter Plan of Treatment Upcoming Encounters Date Type Department Care Team (Late st Contact Info) Description 06/03/2024 1:00 PM DOCUMENTATION LIAISON Appointment [facility] - Rheumatology [address] [place] [address] 06/03/2024 2:00 PM DOCUMENTATION LIAISON Office Visit [facility] - Rheumatology [address] [place] [address] Gloria Smith MD [address] [place] [phone] documented as of this encounter Visit Diagnoses Not on filedocumented in this encounter Care Teams Store Worker Relationship Specialty Start Date End Date Tomas Hyman MD [address] [facility] [address] [place] [address] PCP - General Family Medicine 09/05/18 Isidro Heredia MD Rheumatology 02/09/11 documented as of this encounter
--- OUTSIDE RECORDS SUMMARY | 2024-05-03 04:04 | XMS_ITS | Encounter Summary ---
Author Organization [facility] Address [address] [facility] [place] [address] Care Team Providers Care Sawdust Machine Operator Name Role Phone Isidro Heredia MD Unavailable [phone] Tomas Hyman MD Primary Care Provider [phone] Reason for Visit * Reason Onset Date Comments MEDICATION REFILL 06/04/2022 Encounter Details Date Type Department Care Team (Late st Contact Info) Description 06/04/2022 Refill [facility] Medical [facility] - Rheumatology [address] [place] [address] Gloria Smith MD [address] [place] [phone] MEDICATION REFILL Social History Tobacco Use [...] Coronavirus/COVID-19? No / Unsure 05/19/2022 10:58 AM SALES REPRESENTATIVE PUBLIC UTILITIES documented as of this encounter Miscellaneous Notes * Telephone Encounter - Arian Fernando RN - 06/05/2022 11:23 AM CST Patient chart, labs and allergies reviewed and medication refilled per last office visit note. Patient was called and informed of the above and reminded to have updated labs for medication monitoringcompleted around 07/11/2022. NON-BIOLOGIC REFILL REQUEST Last OV: 05/19/2022 Next Appointment: 09/05/2022 Last Fill: Methotrexate- 02/28/2022 Gabapentin- 03/01/2022 Celebrex- 02/28/2022 Tizanidine- 02/28/2022 Prednisone- 11/14/2021 Recent Labs Component Name 04/12/22 1514 07/27/21 1107 02/08/21 1645 WBC 8.2 8.1 7.5 HGB 12.9* 12.4* 12.8* PLTCOUNT 157 171 151 MCV 92 93 88 Recent Labs Component Name 04/12/22 1514 07/27/21 1107 02/08/21 1645 CREATININE 1.08 1.23 1.13 BUN 17 16 8 SODIUM 139 138 136 POTASSIUM 4.1 3.9 4.2 Recent Labs Component Name 04/12/22 1514 07/27/21 1107 02/08/21 1645 10/19/20 1540 08/24/20 1233 EGFR 79 68 71 >60 >60 EGFRAFR - - 82 >60 >60 Recent Labs Component Name 04/12/22 1514 07/27/21 1107 02/08/21 1645 AST 26 32 27 ALT 19 27 20 ALKPHOS 71 59 63 TBIL 0.3 0.7 0.7 Recent Labs Component Name 02/10/22 0946 [id number] 52.1 No results for input(s): URICACID in the last 02355 hours. Last ESR: Recent Labs Component Name 02/08/21 1645 06/29/20 1410 02/06/20 1332 SEDRATE 5 13 12 Last 3 CRP: Recent Labs Component Name 02/08/21 1645 06/29/20 1410 02/06/20 1332 CRP <1 <0.20 0.21 S REPRESENTATIVE PUBLIC UTILITIES * Telephone Encounter - Mariya Nichole MA - 06/05/2022 10:26 AM SALES REPRESENTATIVE PUBLIC UTILITIES Patient chart, labs and allergies reviewed and medication NON-BIOLOGIC REFILL REQUEST Last OV: 05/19/22 Next Appointment: 09/05/2022 Last Fill: 02/28/22 celecoxib, 02/28/22 methotrexate Recent Labs Component Name 04/12/22 1514 07/27/21 1107 02/08/21 1645 WBC 8.2 8.1 7.5 HGB 12.9* 12.4* 12.8* PLTCOUNT 157 171 151 MCV 92 93 88 Recent Labs Component Name 04/12/22 1514 07/27/21 1107 02/08/21 1645 CREATININE 1.08 1.23 1.13 BUN 17 16 8 SODIUM 139 138 136 POTASSIUM 4.1 3.9 4.2 Recent Labs Component Name 04/12/22 1514 07/27/21 1107 02/08/21 1645 10/19/20 1540 08/24/20 1233 EGFR 79 68 71 >60 >60 EGFRAFR - - 82 >60 >60 Recent Labs Component Name 04/12/22 1514 07/27/21 1107 02/08/21 1645 AST 26 32 27 ALT 19 27 20 ALKPHOS 71 59 63 TBIL 0.3 0.7 0.7 Recent Labs Component Name 02/10/22 0946 [id number] 52.1 No results for input(s): URICACID in the last 18254 hours. Last ESR: Recent Labs Component Name 02/08/21 1645 06/29/20 1410 02/06/20 1332 SEDRATE 5 13 12 Last 3 CRP: Recent Labs Component Name 02/08/21 1645 06/29/20 1410 02/06/20 1332 CRP <1 <0.20 0.21 Last Eye exam (if refill for hydroxychloroquine): JINA 05/19/22 Last refill 11/14/21 predisone, 02/28/22 tizanidine, 03/01/22 gabapentin Upcoming visit: 09/05/22 S REPRESENTATIVE PUBLIC UTILITIES documented in this encounter Plan of Treatment Upcoming Encounters Date Type Department Care Team (Late st Contact Info) Description 06/03/2024 1:00 PM SALES REPRESENTATIVE PUBLIC UTILITIES Appointment [facility] - Rheumatology [address] [place] [address] [phone] 06/03/2024 2:00 PM SALES REPRESENTATIVE PUBLIC UTILITIES Office Visit [facility] - Rheumatology [address] [place] [address] Gloria Smith MD [address] [place] [phone] documented as of this encounter Results * (ABNORMAL) COMPREHENSIVE METABOLIC PANEL (07/27/2022 2:54 PM CDT) Glucose 85 70 - 99 mg/dL [facility] INSURANCE BILL BUN 11 6 - 24 mg/dL [facility] INSURANCE BILL Creatinine 0.99 0.76 - 1.27 mg/dL [facility] INSURANCE BILL eGFR by CKD-EPI 88 >59 mL/min/1.7 3 [facility] INSURANCE BILL BUN/Creatinine Ratio 11 9 - 20 [facility] INSURANCE BILL Sodium 129(L) 134 - 144 mmol/L [facility] INSURANCE BILL Potassium 4.8 3.5 - 5.2 mmol/L [facility] INSURANCE BILL Chloride 92(L) 96 - 106 mmol/L [facility] INSURANCE BILL CO2 23 20 - 29 mmol/L [facility] INSURANCE BILL Calcium 9.2 8.7 - 10.2 mg/dL [facility] INSURANCE BILL Protein Total 6.6 6.0 - 8.5 g/dL [facility] INSURANCE BILL Albumin 4.6 3.8 - 4.9 g/dL [facility] INSURANCE BILL Globulin Total 2.0 1.5 - 4.5 g/dL [facility] INSURANCE BILL Albumin/Globulin Ratio 2.3(H) 1.2 - 2.2 [facility] INSURANCE BILL Bilirubin Total 0.6 0.0 - 1.2 mg/dL [facility] INSURANCE BILL Alkaline Phosphatase 48 44 - 121 IU/L [facility] INSURANCE BILL AST 26 0 - 40 IU/L [facility] INSURANCE BILL ALT 18 0 - 44 IU/L [facility] INSURANCE BILL Comment:FASTING Blood BLOOD SPECIMEN / Unknown 07/27/2022 2:54 PM CDT 07/27/2022 Narrative [facility] INSURANCE BILL - 07/28/2022 6:10 AM CDT A courtesy copy of this report has been sent to [facility] Resulting Agency Comment Lab Testing performed at: [facility] [address] ??[facility] [phone] Gloria Smith MD LAB - CHEMISTRY MARII ARAUJO [facility] INSURANCE BILL [address] [place] [address] * (ABNORMAL) CBC WITH DIFFERENTIAL (07/27/2022 2:53 PM CDT) WBC 6.8 3.4 - 10.8 x10E3/uL [facility] INSURANCE BILL RBC 4.19 4.14 - 5.80 x10E6/uL [facility] INSURANCE BILL Hemoglobin 13.1 13.0 - 17.7 g/dL [facility] INSURANCE BILL Hematocrit 37.2(L) 37.5 - 51.0 % [facility] INSURANCE BILL MCV 89 79 - 97 fL [facility] INSURANCE BILL MCH 31.3 26.6 - 33.0 pg [facility] INSURANCE BILL MCHC 35.2 31.5 - 35.7 g/dL [facility] INSURANCE BILL RDW 13.7 11.6 - 15.4 % [facility] INSURANCE BILL Platelet Count 157 150 - 450 x10E3/uL [facility] INSURANCE BILL Granulocytes % 46 Not Estab. % [facility] INSURANCE BILL Lymphocytes % 43 Not Estab. % [facility] BILL Monocytes % 7 Not Estab. % [facility] BILL Eosinophils % 3 Not Estab. % [facility] INSURANCE BILL Basophils % 1 Not Estab. % [facility] INSURANCE BILL Immature Cells NOT AVAILABLE [facility] INSURANCE BILL Comment:Result cannot be obt ained for this observation. Granulocytes Absolute 3.1 1.4 - 7.0 x10E3/uL [facility] INSURANCE BILL Lymphocytes Absolute 3.0 0.7 - 3.1 x10E3/uL [facility] INSURANCE BILL Monocytes Absolute 0.5 0.1 - 0.9 x10E3/uL [facility] INSURANCE BILL [...] this observation. Blood BLOOD SPECIMEN / Unknown 07/27/2022 2:53 PM CDT 07/27/2022 Narrative Resulting Agency Comment Lab Testing performed at: [facility] [address] ??[facility] [id number] Gloria Smith MD LAB - HEMATOLOGY ORD ERABLES [facility] INSURANCE BILL [address] [place] [address] documented in this encounter Visit Diagnoses Diagnosis High risk medication use- Primary Encounter for long-term (current) use of other medications 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) Chronic neck pain Cervicalgia Chronic back pain, unspecified back location, unspecified back pain laterality Neuropathy Mononeuritis of unspecified site High risk medication use Encounter for long-term (current) use of other medications documented in this encounter Care Teams Sawdust Machine Operator Relationship Specialty Start Date End Date Tomas Hyman MD [address] [facility] [address] [place] [address] PCP - General Family Medicine 09/05/18 Isidro Heredia MD Rheumatology 02/09/11 documented as of this encounter
--- OUTSIDE RECORDS SUMMARY | 2024-05-03 04:04 | XMS_ITS | Encounter Summary ---
Author Organization [facility] Address [address] [facility] [place] [address] Care Team Providers Care Odd Ticket Clerk Name Role Phone Isidro Heredia MD Unavailable [phone] Tomas Hyman MD Primary Care Provider Reason for Visit * Reason Onset Date Comments Medication Prior Auth Request 06/03/2021 Encounter Details Date Type Department Care Team (Late st Contact Info) Description 06/03/2021 Telephone [facility] Medical [facility] - Rheumatology [address] [place] [address] Gloria Dillon MD [address] [place] [phone] Medication Prior Auth Request Social History [...] COVID-19? No / Unsure 06/03/2021 12:36 PM GROCERY DEPARTMENT MANAGER documented as of this encounter Miscellaneous Notes * Telephone Encounter - Carey Loza - 06/16/2021 12:06 PM CST Left message for patient to call ERY DEPARTMENT MANAGER * Addendum Note - Gloria Dillon MD - 06/10/2021 10:45 AM CSTAddended by: GLORIA DILLON on: 06/10/2021 10:45 AM Modules accepted: Orders ERY DEPARTMENT MANAGER * Telephone Encounter - Gloria Dillon MD - 06/10/2021 10:45 AM CST Please explain to him. ERY DEPARTMENT MANAGER * Telephone Encounter - Denisa Mirza - 06/10/2021 9:29 AM CST Pt has an approval on file from 2006 for Humira that is still active. Lifetime approval. Please send Rx to [facility] for a 54 day supply to make this most affordable for the pt (a 54 Day Supply is the same cost as a 28 days supply for the pt). Cost will be $34 for a 2month supply. Please note: Retail cost would cost more if pt wanted to send elsewhere. Medication Prior Authorization Medication: Humira 40mg/0.4ml Pen Status: Approved through [place] already on File from 07/04/[id number] Submitted via: Insurance: [facility] Case Number: not avialable Helpdesk: [phone] ERY DEPARTMENT MANAGER * Telephone Encounter - Gloria Dillon MD - 06/03/2021 1:12 PM CST Request humira 40mg every 14 weeks. 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 ERY DEPARTMENT MANAGER documented in this encounter Plan of Treatment Upcoming Encounters Date Type Department Care Team (Late st Contact Info) Description 06/03/2024 1:00 PM GROCERY DEPARTMENT MANAGER Appointment [facility] - Rheumatology [address] [place] [address] [phone] 06/03/2024 2:00 PM GROCERY DEPARTMENT MANAGER Office Visit [facility] - Rheumatology [address] [place] [phone] Gloria Dillon MD [address] [place] [phone] documented as of this encounter Visit Diagnoses Not on filedocumented in this encounter Care Teams Odd Ticket Clerk Relationship Specialty Start Date End Date Tomas Hyman MD [address] [place] [address] PCP - General Family Medicine 09/05/18 Isidro Heredia MD Rheumatology 02/09/11 documented as of this encounter
--- OUTSIDE RECORDS SUMMARY | 2024-05-03 04:04 | XMS_ITS | Encounter Summary ---
Author Organization [facility] Address [address] [place] [address] Care Team Providers Care Reheater Helper Name Role Phone Isidro Heredia MD Unavailable [phone] Tomas Hyman MD Primary Care Provider [phone] Reason for Referral * OP/Amb RFL Auth (Routine) - Closed Specialty Diagnoses / Procedures Referred By Contsarahi t Referred To Contact Diagnoses Right shoulder pain, unspecified chronicity Procedures SC DRAIN/INJECT LARGE JOINT/BURSA Gloria Smith MD [address] [place] [address] Referral ID Status Reason Start Date Expiration Date Visits Re quested Visits Authorized [id number] Closed 09/05/2022 09/05/2023 1 1 Encounter Details Date Type Department Care Team (Late st Contact Info) Description 09/05/2022 2:20 PM CDT Office Visit [facility] - Rheumatology [address] [place] [address] Gloria Smith MD [facility] [place] [address] Rheumatoid arthritis involving right shoulder, unspecified whether rheumatoid factor present (HCC) (Primary Dx); Right shoulder pain, unspecified [...] Sign Reading Time Taken Comments Blood Pressure 115/69 09/05/2022 2:19 PM CDT Pulse 68 09/05/2022 2:19 PM CDT Temperature - - Respiratory Rate - - Oxygen Saturation - - Inhaled Oxygen Concentration - - Weight 90 kg (198 lb 6.4 oz) 09/05/2022 2:19 PM CDT Height - - Body Mass Index 28.47 07/05/2022 10:45 AM FEATHERER documented in this encounter Progress Notes * Gloria Smith MD - 09/05/2022 2:30 PM CDT CHIEF COMPLAINTS: Follow-up on rheumatoid [...] in 2009, rf 10.2) Last seen on May 19, 2022. Has had 2 loading doses of simponi infusions, last one on 08/02/2022. It works better than humira. Pain 6/10, worse in low back and right shoulder. Pain in hands. Pain worse in morning especially inright shoulder and neck. Swelling is better on simponi. Morning stiffness in LEs, back, at least 1 hour. Denies recent infection. Medication history: mtx 2004-06/2020, [...] History: Diagnosis Date ??? RA (rheumatoid arthritis) ([facility]) Past Surgical History: Procedure Laterality Date ??? Tonsillectomy at 9 years old ALLERGIES: Allergies Allergen Reactions ??? Simvastatin Unknown ??? Plaquenil [Hydroxychloroquine Sulfate] Eye vision disturbance ??? Tuberculin Ppd Positive , CXR yrly Dx inactive TB SOCIAL HISTORY: Social History Tobacco Use Smoking Status Never Smokeless Tobacco Never Vaping Use Vaping Status Never Used Social History Substance and Sexual [...] except as per HPI. PHYSICAL EXAM: BP 115/69 Pulse 68 Wt 90 kg (198 lb 6.4 oz) General: in no acute distress. HEENT: anicteric sclera, no conjunctival injection, PERRL, no oral ulcers. Neck: supple, nontender, no lymphadenopathy Chest: nontender. Abdomen: soft, nontender Extremities: no peripheral swelling, clubbing or cyanosis Skin: No rash Neurologic: Moves all extremities MSK: Tenderness in mcp pip dip joints bilaterally without obvious swelling, tenderness in right shoulder, bilateral ankles. LABORATORY: Recent Labs Component Name 07/27/22 1453 04/12/22 1514 07/27/21 1107 WBC 6.8 8.2 8.1 RBC 4.19 4.15 4.09* HGB 13.1 12.9* 12.4* HCT 37.2* 38.2 38.0 MCV 89 92 93 MCHC 35.2 33.8 32.6 PLTCOUNT 157 157 171 MONOCYTPCT 7 10 6 EOSINPCT 3 4 6 LYMPHABS 3.0 3.2* 4.1* MONOCYTABS 0.5 0.8 0.5 BASOABS 0.1 0.1 0.1 IMMGRANSABS 0.0 0.0 0.0 Recent Labs Component Name 07/27/22 1454 04/12/22 1514 07/27/21 1107 SODIUM 129* 139 138 POTASSIUM 4.8 4.1 3.9 CHLORIDE 92* 100 99 CO2 23 26 26 BUN 11 17 16 CREATININE 0.99 1.08 1.23 GLUCOSE 85 106* 102* CALCIUM 9.2 9.5 9.2 ALBUMIN 4.6 4.2 4.5 ALKPHOS 48 71 59 ALT 18 19 27 AST 26 26 32 TBIL 0.6 0.3 0.7 TPROT 6.6 6.8 6.9 EGFR 88 79 68 Recent Labs Component Name 02/08/21 1645 06/29/20 1410 02/06/20 1332 CRP <1 <0.20 0.21 Recent Labs Component Name 02/08/21 1645 06/29/20 1410 02/06/20 1332 SEDRATE 5 13 12 PROCEDURE: Procedure Name: Right shoulder steroid injection Indication: Pain Side: Right Approach: Posterior Date of procedure: 09/05/2022 Informed Consent and Counseling: The procedure, risks, [...] explained. ASSESSMENT & PLAN: Current medication: Simponi 2mg/kg infusion q8wk, MTX 15mg weekly, folic acid 1mg, prednisone 5 mg bid, Celebrex 200 mgb.i.d. 61 year old white male with: Seropositive rheumatoid arthritis Osteoporosis Chronic back pain and lumbar radiculopathy High-risk medication -- Monitoring for toxicity of MTX with lab tests: CBC and CMP every 3 months to monitor bone marrowfunction, liver function and kidney function. (Raquel 1:160, ccp 22+ in 2009, rf 10.2, esr-, crp) Follow-up for rheumatoid arthritis. Simponi x2 works much better than Humira. Chronic pain is secondary to rheumatoid arthritis, osteoarthritis. Rheumatoid arthritis - status post right shoulder steroid injection - continue Simponi infusion - continue methotrexate, low-dose prednisone, Celebrex - recent CBC and CMP were stable. - provided a letter for him to take medications when he travels to [place] in August 2022. - return to clinic in 3-4 months Chronic neck and back pain - follows with Pain Management and receives epidural injections. Had declined lumbar surgery. - continue tizanidine to 4 mg b.i.d. p.r.n.. Osteoporosis - advised patient to discuss with PCP regarding repeating bone density and compared to previous results. Previous DEXA not available in his chart. - took alendronate from [id number]. The total time spent today was 40 minutes performing chart prep, review of data and visit with the patient. documented in this encounter Plan of Treatment Upcoming Encounters Date Type Department Care Team (Late st Contact Info) Description 06/03/2024 1:00 PM FEATHERER Appointment [facility] - Rheumatology [address] [place] [address] 06/03/2024 2:00 PM FEATHERER Office Visit [facility] - Rheumatology [address] [place] [phone] Gloria Smith MD [facility] [place] [id number] documented as of this encounter Visit Diagnoses Diagnosis Rheumatoid arthritis involving right shoulder, unspecified whether rheumatoid factor present (HCC)- Primary Right shoulder pain, unspecified chronicity documented in this encounter Administered Medications Inactive Administered Medications - up to 3 most recent administrations Medication Order MAR Action Action Date Dose Rate Site lidocaine PF (Xylocaine MPF) 1 % injection Infiltration, ONCE, 1 dose, On Sun09/05/22 at 1600 $ Given 09/05/2022 3:54 PM CDT 50 mg Right Shoulder methylPREDNISolone acetate (DEPO-Medrol) injection 40 mg 40 mg, Intramuscular, ONCE, 1 dose, On Sun09/05/22 at 1600 $ Given 09/05/2022 4:04 PM CDT 40 mg Rig ht Shoulder documented in this encounter Care Teams Reheater Helper Relationship Specialty Start Date End Date Tomas Hyman MD [address] [facility] [address] [place] [address] PCP - General Family Medicine 09/05/18 Isidro Heredia MD Rheumatology 02/09/11 documented as of this encounter
--- OUTSIDE RECORDS SUMMARY | 2024-05-03 04:04 | XMS_ITS | Encounter Summary ---
Author Organization [facility] Address [address] [facility] [place] [address] Care Team Providers Care Checker Stocker Name Role Phone Isidro Heredia MD Unavailable [phone] Tomas Hyman MD Primary Care Provider [phone] Reason for Visit * Reason Onset Date Comments MEDICATION REFILL 11/13/2021 Encounter Details Date Type Department Care Team (Late st Contact Info) Description 11/13/2021 Refill [facility] - Rheumatology [address] [place] [address] Gloria Smith MD [address] [place] [phone] MEDICATION REFILL Social History Tobacco Use [...] Telephone Encounter - Arian Fernando RN - 11/14/2021 11:51 AM CDT Per 04/13/[address] Smith is okay refilling all medications listed below so long as appointment and other requirements are met. 30 day refill of methotrexate and patient will have updated labs at next follow-up. NON-BIOLOGIC REFILL REQUEST Last OV: 09/02/2021 Next Appointment: 12/16/2021 Last Fill: Methotrexate- 08/05/2021 Pantoprazole- 08/04/2021 Gabapentin- 08/04/2021 Prednisone- 08/04/2021 Celebrex- 08/04/2021 Aspirin- 08/04/2021 Recent Labs Component Name 07/27/21 1107 02/08/21 [...] 59 63 70 TBIL 0.7 0.7 0.6 No results for input(s): [id number] in the last 83765 hours. No results for input(s): URICACID in the last 50325 hours. Last ESR: Recent Labs Component Name 02/08/21 1645 06/29/20 1410 02/06/20 1332 SEDRATE 5 13 12 Last 3 CRP: Recent Labs Component Name 02/08/21 1645 06/29/20 1410 02/06/20 1332 CRP <1 <0.20 0.21 documented in this encounter Plan of Treatment Upcoming Encounters Date Type Department Care Team (Late st Contact Info) Description 06/03/2024 1:00 PM COST ACCOUNTING ANALYST Appointment [facility] - Rheumatology [address] [place] [address] 06/03/2024 2:00 PM COST ACCOUNTING ANALYST Office Visit [facility] - Rheumatology [address] [place] [phone] Gloria Smith MD [address] [place] [phone] documented as of this encounter Visit Diagnoses Diagnosis 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) documented in this encounter Care Teams Checker Stocker Relationship Specialty Start Date End Date Tomas Hyman MD [address] [facility] [address] [place] [address] PCP - General Family Medicine 09/05/18 Isidro Heredia MD Rheumatology 02/09/11 documented as of this encounter
--- OUTSIDE RECORDS SUMMARY | 2024-05-03 04:04 | XMS_ITS | Encounter Summary ---
Author Organization [facility] Address [address] [facility] [place] [address] Care Team Providers Care Executive Team Leader Name Role Phone Isidro Heredia MD Unavailable [phone] Tomas Hyman MD Primary Care Provider [phone] Reason for Visit * Reason Onset Date Comments MEDICATION REFILL 11/27/2022 Encounter Details Date Type Department Care Team (Late st Contact Info) Description 11/27/2022 Refill [facility] Medical [facility] - Rheumatology [address] [place] [address] Gloria Smith MD [address] [place] [phone] MEDICATION REFILL Social History Tobacco Use [...] * Telephone Encounter - Carey Loza - 11/27/2022 12:49 PM CDT NON-BIOLOGIC REFILL REQUEST Last OV: 09/05/22 Next Appointment: Visit date not found Last Fill: Recent Labs Component Name 07/27/22 1453 04/12/22 1514 07/27/21 1107 WBC 6.8 8.2 8.1 HGB 13.1 12.9* 12.4* PLTCOUNT 157 157 171 MCV 89 92 93 Recent Labs Component Name 07/27/22 1454 04/12/22 1514 07/27/21 1107 CREATININE 0.99 1.08 1.23 BUN 11 17 16 SODIUM 129* 139 138 POTASSIUM 4.8 4.1 3.9 Recent Labs Component Name 07/27/22 1454 04/12/22 1514 07/27/21 1107 02/08/21 1645 10/19/20 1540 08/24/20 1233 EGFR 88 79 68 71 >60 >60 EGFRAFR - - - 82 >60 >60 Recent Labs Component Name 07/27/22 1454 04/12/22 1514 07/27/21 1107 AST 26 26 32 ALT 18 19 27 ALKPHOS 48 71 59 TBIL 0.6 0.3 0.7 Last ESR: Recent Labs Component Name 02/08/21 1645 06/29/20 1410 02/06/20 1332 SEDRATE 5 13 12 Last 3 CRP: Recent Labs Component Name 02/08/21 1645 06/29/20 1410 02/06/20 1332 CRP <1 <0.20 0.21 Last Eye exam (if refill for hydroxychloroquine): documented in this encounter Plan of Treatment Upcoming Encounters Date Type Department Care Team (Late st Contact Info) Description 06/03/2024 1:00 PM WATER CHEMIST Appointment [facility] - Rheumatology [address] [place] [address] 06/03/2024 2:00 PM WATER CHEMIST Office Visit [facility] - Rheumatology [address] [place] [address] Gloria Smith MD [address] [place] [phone] documented as of this encounter Visit Diagnoses Diagnosis 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) Neuropathy Mononeuritis of unspecified site documented in this encounter Care Teams Executive Team Leader Relationship Specialty Start Date End Date Tomas Hyman MD [address] [place] [address] PCP - General Family Medicine 09/05/18 Isidro Heredia MD Rheumatology 02/09/11 documented as of this encounter
--- OUTSIDE RECORDS SUMMARY | 2024-05-03 04:04 | XMS_ITS | Encounter Summary ---
Author Organization [facility] Address [address] [place] [address] Care Team Providers Care Humanities Coordinator Name Role Phone Isidro Heredia MD Unavailable [phone] Tomas Hyman MD Primary Care Provider [phone] Reason for Referral * OP/Amb RFL Auth (Routine) - Closed Specialty Diagnoses / Procedures Referred By Contsarahi t Referred To Contact Diagnoses Right shoulder pain, unspecified chronicity Procedures LA DRAIN/INJECT LARGE JOINT/BURSA Gloria Smith MD [address] [place] [address] Referral ID Status Reason Start Date Expiration Date Visits Re quested Visits Authorized [id number] Closed 05/19/2022 05/19/2023 1 1 RER BITUMINOUS PAVING Reason for Visit * Reason Comments Follow-up Encounter Details Date Type Department Care Team (Late st Contact Info) Description 05/19/2022 11:20 AM LABORER BITUMINOUS PAVING Office Visit [facility] - Rheumatology [address] [place] [address] Gloria Smith MD [facility] [place] [address] Rheumatoid arthritis of multiple sites [...] Coronavirus/COVID-19? No / Unsure 05/19/2022 10:58 AM LABORER BITUMINOUS PAVING documented as of this encounter Last Filed Vital Signs Vital Sign Reading Time Taken Comments Blood Pressure 115/68 05/19/2022 11:04 AM LABORER BITUMINOUS PAVING Pulse 81 05/19/2022 11:04 AM LABORER BITUMINOUS PAVING Temperature - - Respiratory Rate 22 05/19/2022 11:04 AM LABORER BITUMINOUS PAVING Oxygen Saturation - - Inhaled Oxygen Concentration - - Weight 101.6 kg (224 lb) 05/19/2022 11:04 AM LABORER BITUMINOUS PAVING Height 177.8 cm (5' 10 ) 05/19/2022 11:04 AM LABORER BITUMINOUS PAVING Body Mass Index 32.14 05/19/2022 11:04 AM LABORER BITUMINOUS PAVING documented in this encounter Patient Instructions * Patient Instructions* Gloria Smith MD - 05/19/2022 11:59 AM LABORER BITUMINOUS PAVING Discuss with pcp regarding repeating bone density and compare to previous results. RER BITUMINOUS PAVING documented in this encounter Progress Notes * Gloria Smith MD - 05/19/2022 11:43 AM CST CHIEF COMPLAINTS: Follow-up on rheumatoid arthritis [...] in 2009, rf 10.2) Last seen on February 10, 2022. On humira for 9 months. Severe low back pain. Receiving Sekou with some effect, last one a month ago. Will follow with pain management. Pain in hands, shoulders. Moderate pain in knees, ankles. Swelling in hands. No noticeable change after each humira injection. Medication history: Humira 06/2021-present mtx 2004-06/2020, inadequate, [...] History: Diagnosis Date ??? RA (rheumatoid arthritis) ([facility]) Past Surgical History: Procedure Laterality Date [...] except as per HPI. PHYSICAL EXAM: BP 115/68 (BP SITE: LEFT ARM, BP POSITION: SITTING, BP CUFF SIZE: 12) Pulse 81 Resp 22 Ht 1.778 m (5' 10 ) Wt 101.6 kg (224 lb) General: in no acute distress. HEENT: anicteric sclera, no conjunctival injection, PERRL, no oral ulcers. Neck: supple, nontender, no lymphadenopathy Chest: nontender. Abdomen: soft, nontender Extremities: no peripheral swelling, clubbing or cyanosis Skin: No rash Neurologic: Moves all extremities MSK: Tenderness and mild swelling in wrists, fingers,. Tenderness in elbows, shoulders, knees, ankles, lower back. LABORATORY: Recent Labs Component Name 04/12/22 1514 07/27/21 1107 02/08/21 1645 WBC 8.2 8.1 7.5 RBC 4.15 4.09* 4.14 HGB 12.9* 12.4* 12.8* HCT 38.2 38.0 36.6* MCV 92 93 88 MCHC 33.8 32.6 35.0 PLTCOUNT 157 171 151 MONOCYTPCT 10 6 7 EOSINPCT 4 6 4 LYMPHABS 3.2* 4.1* 2.8 MONOCYTABS 0.8 0.5 0.5 BASOABS 0.1 0.1 0.1 IMMGRANSABS 0.0 0.0 0.0 Recent Labs Component Name 04/12/22 1514 07/27/21 1107 02/08/21 1645 SODIUM 139 138 136 POTASSIUM 4.1 3.9 4.2 CHLORIDE 100 99 97 CO2 26 26 26 BUN 17 16 8 CREATININE 1.08 1.23 1.13 GLUCOSE 106* 102* 119* CALCIUM 9.5 9.2 9.4 ALBUMIN 4.2 4.5 4.5 ALKPHOS 71 59 63 ALT 19 27 20 AST 26 32 27 TBIL 0.3 0.7 0.7 TPROT 6.8 6.9 6.7 EGFR 79 68 71 Recent Labs Component Name 02/08/21 1645 06/29/20 1410 02/06/20 1332 CRP <1 <0.20 0.21 Recent Labs Component Name 02/08/21 1645 06/29/20 1410 02/06/20 1332 SEDRATE 5 13 12 PROCEDURE: Procedure Name: Right shoulder steroid injection Indication: Pain Side: Right Approach: Posterior Date of procedure: 05/19/2022 Informed Consent and Counseling: The procedure, risks, [...] esr-, crp) Follow-up for rheumatoid arthritis. Humira is inadequate. Simponi worked relatively well. Severe back pain since he started Humira. Rheumatoid arthritis - status post right shoulder steroid injection - switch Humira to Simponi infusion, 2 milligram/kilogram, every 8 weeks, pending insurance approval - continue methotrexate, low-dose prednisone, Celebrex - recent CBC and CMP were stable. - return to clinic in 3 months Chronic neck and back pain - follows with Pain Management and will receive epidural injections. Had declined lumbar surgery. - continue tizanidine to 4 mg b.i.d. p.r.n.. Osteoporosis - advised patient to discuss with PCP regarding repeating bone density and compared to previous results. Previous DEXA not available in his chart. - took alendronate from [id number]. RER BITUMINOUS PAVING documented in this encounter Plan of Treatment Upcoming Encounters Date Type Department Care Team (Late st Contact Info) Description 06/03/2024 1:00 PM LABORER BITUMINOUS PAVING Appointment [facility] - Rheumatology [address] [place] [phone] 06/03/2024 2:00 PM LABORER BITUMINOUS PAVING Office Visit [facility] - Rheumatology [address] [place] [address] Gloria Smith MD [address] [place] [phone] documented as of this encounter Visit Diagnoses Diagnosis 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)- Primary Right shoulder pain, unspecified chronicity documented in this encounter Administered Medications Inactive Administered Medications - up to 3 most recent administrations Medication Order MAR Action Action Date Dose Rate Site lidocaine PF (Xylocaine MPF) 1 % injection 1 mL 1 mL, Intra-articular, ONCE, 1 dose, On Sun05/19/22 at 1245 $ Given 05/19/2022 12:24 PM LABORER BITUMINOUS PAVING 1 mL Right Shoulder methylPREDNISolone acetate (DEPO-Medrol) injection 40 mg 40 mg, Intra-articular, ONCE, 1 dose, On Sun05/19/22 at 1245 $ Given 05/19/2022 12:25 PM LABORER BITUMINOUS PAVING 40 mg Right Shoulder documented in this encounter Care Teams Humanities Coordinator Relationship Specialty Start Date End Date Tomas Hyman MD [address] [facility] [address] [place] [address] PCP - General Family Medicine 09/05/18 Isidro Heredia MD Rheumatology 02/09/11 documented as of this encounter
--- OUTSIDE RECORDS SUMMARY | 2024-05-03 04:04 | XMS_ITS | Encounter Summary ---
Author Organization [facility] Address [address] [place] [address] Care Team Providers Care Forestry Worker Name Role Phone Isidro Heredia MD Unavailable [phone] Tomas Hyman MD Primary Care Provider [phone] Encounter Details Date Type Department Care Team (Latest Contact Info) Description 02/08/2021 Travel Social History Tobacco Use Types Packs/Day [...] have Coronavirus / COVID-19? No / Unsure 02/08/2021 2:22 PM CDT documented as of this encounter Plan of Treatment Upcoming Encounters Date Type Department Care Team (Late st Contact Info) Description 06/03/2024 1:00 PM VIDEO TAPE EDITOR Appointment [facility] - Rheumatology [address] [place] [address] 06/03/2024 2:00 PM VIDEO TAPE EDITOR Office Visit [facility] - Rheumatology [address] [place] [address] Gloria Smith MD [address] [place] [phone] documented as of this encounter Visit Diagnoses Not on filedocumented in this encounter Care Teams Forestry Worker Relationship Specialty Start Date End Date Tomas Hyman MD [address] [facility] [address] [place] [address] PCP - General Family Medicine 09/05/18 Isidro Heredia MD Rheumatology 02/09/11 documented as of this encounter
--- OUTSIDE RECORDS SUMMARY | 2024-05-03 04:04 | XMS_ITS | Encounter Summary ---
Author Organization [facility] Address [address] [facility] [place] [address] Care Team Providers Care Vp Respiratory Name Role Phone Isidro Heredia MD Unavailable [phone] Tomas Hyman MD Primary Care Provider [phone] Reason for Visit * Treatment (Elective) - Closed Specialty Diagnoses / Procedures Referred By Lawrence shah Referred To Contact Diagnoses 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) Procedures [place] GOLIMUMAB FOR IV USE 1MG Gloria Smith MD [address] [place] [address] [address] Referral ID Status Reason Start Date Expiration Date Visits Re quested Visits Authorized [id number] Closed 05/22/2022 04/29/2023 12 12 Encounter Details Date Type Department Care Team (Late st Contact Info) Description 03/28/2023 11:00 AM POURER BULL LADLE - 03/28/2023 11:59 PM POURER BULL LADLE Hospital Encounter [facility] Medical [facility] - Rheumatology [address] [place] [address] Gloria Smith MD [address] [place] [address] Rheumatology Discharge Disposition: Home or [...] Sign Reading Time Taken Comments Blood Pressure 125/72 03/28/2023 11:34 AM POURER BULL LADLE Pulse 73 03/28/2023 11:34 AM POURER BULL LADLE Temperature 36.7 ??C (98 ??F) 03/28/2023 11: 34 AM POURER BULL LADLE Respiratory Rate - - Oxygen Saturation - - Inhaled Oxygen Concentration - - Weight 94.7 kg (208 lb 12.8 oz) 023 11:34 AM POURER BULL LADLE Height - - Body Mass Index 29.96 01/30/2023 10:56 AM CDT documented in this encounter Discharge Instructions * Discharge Instructions* Shelby Higgins RN - 03/28/2023 11:39 AM POURER BULL LADLE Discharge Instructions [facility] Rheumatology You have received your [...] they should not be ignored. Sunday through Sunday5 call the office at [phone]. After hours or on the weekend call the exchange at [phone]. If you have had lab work done [...] have chosen [facility] as your Provider [facility] documented in this encounter Medications at Time of Discharge Medication Sig Dispensed Refills Start Date End Date aspirin EC (ECOTRIN) 81 MG tablet Take 1 (one) tablet by mouth once daily 90 tablet 11/14/2021 atorvastatin (LIPITOR) 40 MG tablet Take 1 (one) tablet by mouth at bedtime buPROPion (Wellbutrin) 100 MG tablet Take 1 (one) tablet by mouth 2 times daily 09/04/2022 arihcttentv-dgpi-aktw sorb, PF, 0.5-1-0.5 % SOLN Instill 1 [...] Progress Notes * Shelby Higgins RN - 03/28/2023 11:46 AM CST JOSE Chalino Deng [id number] 03/28/2023 Diagnosis: Rheumatoid arthritis without rheumatoid factor, multiple sites (CMS/HCC) [M06.09]. Pt denies symptoms of infection or antibiotic use, no open wounds, or recent surgery, or plans for surgery in the next couple of weeks. Pt is aware that we use the 0-10 pain scale to assess discomfort. 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 front office specialist pt signs consent for treatment for this infusion. BP 125/72 Pulse 73 Temp 98 ??F Wt 94.7 kg (208 lb 12.8 oz) ?? SCHEDULED MEDICATIONS: ?? golimumab (Simponi Aria) 180 mg in 0.9% NaCl IV 100 mL infusion, Intravenous, Once ?? Number of 24 gauge 3/4 inch placed in Right antecubital ?? 1 attempt(s). Patient monitored throughout procedure. Last OV-02/19 Next OV-05/23 TB Gold-02/18 Hepatitis Screen-02/18 Last Routine Labs-02/19 Next Labs Due-05/23 Tolerated well? Yes Next treatment? Q 56 days Shelby Higgins RN ER BULL [facility]ADLE documented in this encounter Plan of Treatment Upcoming Encounters Date Type Department Care Team (Late st Contact Info) Description 06/03/2024 1:00 PM POURER BULL LADLE Appointment [facility] - Rheumatology [address] [place] [address] [phone] 06/03/2024 2:00 PM POURER BULL LADLE Office Visit [facility] - Rheumatology [address] [place] [address] [phone] Gloria Smith MD [address] [place] [phone] documented as of this encounter Visit Diagnoses [...] 30 Minutes, Intravenous, ONCE, 1 dose, On Sun03/28/23 at 1145, Use in-line low protein binding 0.22 micrometer filter. $ New Bag/Syringe 03/28/2023 11:44 AM POURER BULL LADLE 180 mg 200 mL/hr documented in this encounter Care Teams Vp Respiratory Relationship Specialty Start Date End Date Tomas Hyman MD [address] [address] [address] [place] [address] PCP - General Family Medicine 09/05/18 Isidro Heredia MD Rheumatology 02/09/11 documented as of this encounter
--- OUTSIDE RECORDS SUMMARY | 2024-05-03 04:04 | XMS_ITS | Encounter Summary ---
Author Organization [facility] Address [address] [facility] [place] [address] Care Team Providers Care Slice Cutting Machine Operator Name Role Phone Isidro Heredia MD Unavailable [phone] Tomas Hyman MD Primary Care Provider [phone] Reason for Visit * Reason Onset Date Comments Medication Prior Auth Request 02/10/2022 Encounter Details Date Type Department Care Team (Late st Contact Info) Description 02/10/2022 Telephone [facility] - Rheumatology [address] [place] [address] Gloria Smith MD [address] [place] [phone] Medication Prior Auth Request Social History [...] Coronavirus/COVID-19? No / Unsure 05/19/2022 10:58 AM CORN DETASSELER documented as of this encounter Miscellaneous Notes * Telephone Encounter - Arian Fernando RN - 05/19/2022 12:49 PM CST Called the [facility] and spoke with Denise who verified that the Simponi Infusion plan was received. I was informed that the PA will be verified by the PA team at [facility] and then the patient contacted to schedule. DETASSELER * Telephone Encounter - Gloria Smith MD - 05/19/2022 12:41 PM CST He is okay to have infusion at [facility]. I sent a therapy plan. No need to follow up PA. DETASSELER * Telephone Encounter - Gloria Smith MD - 05/18/2022 9:04 PM CST Please follow up. DETASSELER * Telephone Encounter - Gloria Smith MD - 02/10/2022 1:00 PM CDT Request simponi 2 mg/kg at weeks 0, 4, and then every 8 weeks. 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 documented in this encounter Plan of Treatment Upcoming Encounters Date Type Department Care Team (Late st Contact Info) Description 06/03/2024 1:00 PM CORN DETASSELER Appointment [facility] - Rheumatology [address] [place] [address] [phone] 06/03/2024 2:00 PM CORN DETASSELER Office Visit [facility] - Rheumatology [address] [place] [address] Gloria Smith MD [address] [place] [phone] documented as of this encounter Visit Diagnoses Not on filedocumented in this encounter Care Teams Slice Cutting Machine Operator Relationship Specialty Start Date End Date Tomas Hyman MD [address] [place] [address] PCP - General Family Medicine 09/05/18 Isidro Heredia MD Rheumatology 02/09/11 documented as of this encounter
--- OUTSIDE RECORDS SUMMARY | 2024-05-03 04:04 | XMS_ITS | Encounter Summary ---
Author Organization [facility] Address [address] [facility] [place] [address] Care Team Providers Care Freelance Writer Name Role Phone Isidro Heredia MD Unavailable [phone] Tomas Hyman MD Primary Care Provider [phone] Encounter Details Date Type Department Care Team (Late Contact Info) Description 07/11/2022 Orders Only [facility] - Rheumatology [address] [place] [address] Gloria Smith MD [address] [place] [phone] High risk medication use Social History Tobacco Use Types Packs/Day Years [...] (Late Contact Info) Description 06/03/2024 1:00 PM LEAD PRINTER Appointment [facility] - Rheumatology [address] [place] [address] 06/03/2024 2:00 PM LEAD PRINTER Office Visit [facility] - Rheumatology [address] [place] [address] Gloria Smith MD [address] [place] [phone] documented as of this encounter Procedures Procedure Name Priority Date/Time Associated Diagnosis Comments COMPREHENSIVE METABOLIC PANEL Routine 07/27/2022 2:54 PM CDT High risk medication use CBC W AUTO DIFFERENTIAL Routine 07/27/2022 2:53 PM CDT High risk medication use documented in this [...] of this report has been sent to [facility] Resulting Agency Comment Lab Testing performed at: [facility] [address] ??[facility] [phone] Gloria Smith MD LAB - CHEMISTRY MARII ARAUJO [facility] INSURANCE BILL [address] [place] [address] * (ABNORMAL) CBC WITH DIFFERENTIAL (07/27/2022 2:53 [...] Agency Comment Lab Testing performed at: [facility] [address] [facility] ??[facility] [phone] Gloria Smith MD LAB - HEMATOLOGY ORD ERABLES [facility] INSURANCE BILL [address] [place] [address] documented in this encounter Visit Diagnoses Diagnosis High risk medication use Encounter for long-term (current) use of other medications documented in this encounter Care Teams Freelance Writer Relationship Specialty Start Date End Date Tomas Hyman MD [address] [place] [address] PCP - General Family Medicine 09/05/18 Isidro Heredia MD Rheumatology 02/09/11 documented as of this encounter
--- OUTSIDE RECORDS SUMMARY | 2024-05-03 04:04 | XMS_ITS | Encounter Summary ---
Author Organization [facility] Address [address] [facility] [place] [address] Care Team Providers Care Weather Teacher Name Role Phone Isidro Heredia MD Unavailable [phone] Tomas Hyman MD Primary Care Provider [phone] Reason for Visit * Reason Onset Date Comments Scheduling 06/26/2022 Pt scheduled for Simponi infusion 07/05 at [place] Encounter Details Date Type Department Care Team (Late st Contact Info) Description 06/26/2022 Telephone [facility] [address] [facility] [address] [place], [place] [phone] Alisia Silva, RN Scheduling (Pt scheduled for Simponi infusion 07/05 at [place]) Social History Tobacco Use Types Packs/Day Years [...] (Late Contact Info) Description 06/03/2024 1:00 PM CAREER DEVELOPMENT SPECIALIST Appointment [facility] - Rheumatology [address] [place] [address] 06/03/2024 2:00 PM CAREER DEVELOPMENT SPECIALIST Office Visit [facility] - Rheumatology [address] [place] [address] Gloria Smith MD [address] [place] [phone] documented as of this encounter Visit Diagnoses Not on filedocumented in this encounter Care Teams Weather Teacher Relationship Specialty Start Date End Date Tomas Hyman MD [address] [place] [address] PCP - General Family Medicine 09/05/18 Isidro Heredia MD Rheumatology 02/09/11 documented as of this encounter
--- OUTSIDE RECORDS SUMMARY | 2024-05-03 04:04 | XMS_ITS | Encounter Summary ---
Author Organization [facility] Address [address] [facility] [place] [address] Care Team Providers Care Grill Attendant Name Role Phone Isidro Heredia MD Unavailable [phone] Tomas Hyman MD Primary Care Provider [phone] Reason for Visit * Reason Onset Date Comments MEDICATION REFILL 09/03/2022 Encounter Details Date Type Department Care Team (Late st Contact Info) Description 09/03/2022 Refill [facility] - Rheumatology [address] [place] [address] Gloria Smith MD [address] [place] [phone] MEDICATION REFILL Social History Tobacco Use [...] Telephone Encounter - Arian Fernando RN - 09/04/2022 9:22 AM CDT Patient chart, labs and allergies reviewed and medication refilled per last office visit note. NON-BIOLOGIC REFILL REQUEST Last OV: 05/19/2022 Next Appointment: 09/05/2022 Last Fill: Methotrexate- 06/05/2022 Gabapentin- 06/05/2022 Celebrex- 06/05/2022 Tizanidine- 06/05/2022 Prednisone- 06/05/2022 Folic acid- 08/04/2021 Recent Labs Component Name 07/27/22 1453 04/12/22 [...] 48 71 59 TBIL 0.6 0.3 0.7 Recent Labs Component Name 02/10/22 0946 [id number] 52.1 No results for input(s): URICACID in the last 46619 hours. Last ESR: Recent Labs Component Name 02/08/21 1645 06/29/20 1410 02/06/20 1332 SEDRATE 5 13 12 Last 3 CRP: Recent Labs Component Name 02/08/21 1645 06/29/20 1410 02/06/20 1332 CRP <1 <0.20 0.21 documented in this encounter Plan of Treatment Upcoming Encounters Date Type Department Care Team (Late st Contact Info) Description 06/03/2024 1:00 PM MAINTENANCE TECHNICIAN 2ND SHIFT Appointment [facility] - Rheumatology [address] [place] [phone] 06/03/2024 2:00 PM MAINTENANCE TECHNICIAN 2ND SHIFT Office Visit [facility] - Rheumatology [address] [place] [address] Gloria Smith MD [address] [place] [phone] documented as of this encounter Visit Diagnoses Diagnosis High risk medication use- Primary Encounter for long-term (current) use of other medications 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) Chronic neck pain Cervicalgia Chronic back pain, unspecified back location, unspecified back pain laterality Neuropathy Mononeuritis of unspecified site documented in this encounter Care Teams Grill Attendant Relationship Specialty Start Date End Date Tomas Hyman MD [address] [facility] [address] [place] [phone] PCP - General Family Medicine 09/05/18 Isidro Heredia MD Rheumatology 02/09/11 documented as of this encounter
--- OUTSIDE RECORDS SUMMARY | 2024-05-03 04:04 | XMS_ITS | Encounter Summary ---
Author Organization [facility] Address [address] [facility] [place] [address] Care Team Providers Care Clinical Instructor Name Role Phone Isidro Heredia MD Unavailable [phone] Tomas Hyman MD Primary Care Provider Reason for Referral * OP/Amb RFL Auth (Routine) - Closed Specialty Diagnoses / Procedures Referred By Contsarahi t Referred To Contact Diagnoses Right shoulder pain, unspecified chronicity Procedures [place] DRAIN/INJECT LARGE JOINT/BURSA Gloria Smith MD [address] [place] [address] Referral ID Status Reason Start Date Expiration Date Visits Re quested Visits Authorized [id number] Closed 06/03/2021 06/03/2022 1 1 IDENT CEO & FOUNDER Reason for Visit * Reason Comments Rheumatoid Arthritis Encounter Details Date Type Department Care Team (Late st Contact Info) Description 06/03/2021 1:00 PM PRESIDENT CEO & FOUNDER Office Visit [facility] - Rheumatology [address] [place] [id number] Gloria Smith MD [facility] [place] [address] Rheumatoid arthritis of multiple sites [...] COVID-19? No / Unsure 06/03/2021 12:36 PM PRESIDENT CEO & FOUNDER documented as of this encounter Last Filed Vital Signs Vital Sign Reading Time Taken Comments Blood Pressure 135/78 06/03/2021 12:46 PM PRESIDENT CEO & FOUNDER Pulse 106 06/03/2021 12:46 PM PRESIDENT CEO & FOUNDER Temperature - - Respiratory Rate - - Oxygen Saturation - - Inhaled Oxygen Concentration - - Weight 95.7 kg (211 lb) 06/03/2021 12:46 PM PRESIDENT CEO & FOUNDER Height 177.8 cm (5' 10 ) 06/03/2021 12:46 PM PRESIDENT CEO & FOUNDER Body Mass Index 30.28 06/03/2021 12:46 PM PRESIDENT CEO & FOUNDER documented in this encounter Progress Notes * Gloria Smith MD - 06/03/2021 12:55 PM CST CHIEF COMPLAINTS: Follow-up on rheumatoid arthritis HISTORY OF PRESENT ILLNESS: Chalino Deng is a 60 year old white male with past medical history of seropositive rheumatoid arthritis, diverticulitis, sepsis on Actemra, recurrent UTIs, recu rrent prostatitis, chronic back pain and lumbar stenosis and spondylosis status post epidural injections, history of shingles, who returns for follow-up on rheumatoid arthritis. (Raquel 1:160, ccp 22+ in 2009, rf 10.2) Last seen on 02/08/2021. Has been having more low back pain, with right radiculopathy. Uses inverting table with some effect. Will follow up with pain management for NAVEEN. Severe right shoulder pain. Pain in all joints, with some swelling in hands, knees. MS long. Takes a warm bath in morning. Swelling is more noticeable inmorning and evening. Sleeps poorly due to pain. Simponi infusion lasts a month only. Chronic dry eyes. Some blurry vision. He will obtain vit D result for us. Medication history: simponi 10/2020-present mtx 2004-06/2020, inadequate, 10/2020-present SSZ 08/2020, GI SEs AZA 06/2020-08/2020, GI [...] except as per HPI. PHYSICAL EXAM: BP 135/78 Pulse 106 Ht 1.778 m (5' 10 ) Wt 95.7 kg (211 lb) BMI 30.28 kg/m2 General: in no acute distress. HEENT: anicteric sclera, no conjunctival injection, PERRL, no oral ulcers. Neck: supple, nontender, no lymphadenopathy Chest: nontender. Abdomen: soft, nontender Extremities: no peripheral swelling, clubbing or cyanosis Skin: No rash Neurologic: Moves all extremities MSK: Mild tenderness and fullness in MCP and PIP joints bilaterally. Hand space officer is decreased bilaterally. Tenderness in right shoulder. Mild tenderness in the left shoulder. Mild tenderness in bilateral knees. No tenderness in elbows. LABORATORY: Recent Labs Component Name 02/08/21164410/19/20 1540 08/24/20 1233 WBC 7.5 9.5 6.3 RBC 4.14 4.50 4.02 HGB 12.8* 13.7 12.1 HCT 36.6* 40.8 38.3 MCV 88 90.7 95.3 MCHC 35.0 33.6 31.6 PLTCOUNT 151 179 156 MONOCYTPCT 7 7.9 9.3 EOSINPCT 4 4.0 7.5* LYMPHABS 2.8 3.56 2.48 MONOCYTABS 0.5 0.75 0.58 BASOABS 0.1 0.08 0.08 IMMGRANSABS 0.0 0.02 0.01 Recent Labs Component Name 02/08/21164410/19/20 1540 08/24/20 1233 SODIUM 136 137 139 POTASSIUM 4.2 4.0 4.0 CHLORIDE 97 100 106 CO2 26 24 24 BUN 8 22 16 CREATININE 1.13 1.18 1.14 GLUCOSE 119* 100 116* CALCIUM 9.4 9.2 8.6 ALBUMIN 4.5 4.2 4.0 ALKPHOS 63 70 65 ALT 20 16 15 AST 27 18 21 TBIL 0.7 0.6 0.5 TPROT 6.7 6.6 6.6 EGFR 71 >60 >60 Recent Labs Component Name 02/08/21164406/29/20 1410 02/06/20 1332 CRP <1 <0.20 0.21 Recent Labs Component Name 02/08/21164406/29/20 1410 02/06/20 1332 SEDRATE 5 13 12 [...] explained. ASSESSMENT & PLAN: Current medication: Simponi 200mg every 8 weeks, MTX 15mg weekly, folic acid 1mg, [...] 10.2, esr-, crp) Follow-up for rheumatoid arthritis. Has not received methotrexate subcutaneous injection yet. Simponi works better than Remicade but only lasts for a month or so. Has inflammatory joint symptoms, right shoulder pain today, mild synovitis in hands on exam. Rheumatoid arthritis - awaiting prior authorization of methotrexate pen. If denied by insurance, will try methotrexate vials and syringes. - switch Simponi infusion to Humira injection 40 mg every 14 days, pending insurance approval. Can start Humira 1 month after today's infusion. - repeat CBC, CMP. He will obtain vitamin-D result. - return to clinic in 3 months Right shoulder pain - status post steroid injection Chronic neck and back pain - follows with Pain Management and received epidural injections. Off regular Percocet since July,. Declined lumbar surgery. Osteoporosis - Will repeat DEXA bone density scan - took alendronate from [id number]. The total time spent today was 40 minutes performing chart prep, review of data and visit with the patient. IDENT CEO & FOUNDER documented in this encounter Plan of Treatment Upcoming Encounters Date Type Department Care Team (Late st Contact Info) Description 06/03/2024 1:00 PM PRESIDENT CEO & FOUNDER Appointment [facility] - Rheumatology [address] [place] [address] [phone] 06/03/2024 2:00 PM PRESIDENT CEO & FOUNDER Office Visit [facility] - Rheumatology [address] [place] [address] [phone] Gloria Smith MD [address] [place] [address] [phone] Scheduled Orders Name Type Priority Associated Diagnoses Orde r Schedule CBC WITH DIFFERENTIAL Lab Routine 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) Ordered: 06/03/2021 COMPREHENSIVE METABOLIC PANEL Lab Routine 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) Ordered: 06/03/2021 documented as of this encounter Procedures Procedure Name Priority Date/Time Associated Diagnosis Comments CBC W AUTO DIFFERENTIAL Routine 07/27/2021 11:07 AM CDT 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) COMPREHENSIVE METABOLIC PANEL Routine 07/27/2021 11:07 AM CDT 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) documented in this encounter Results * (ABNORMAL) COMPREHENSIVE METABOLIC PANEL (07/27/2021 11:07 AM CDT) Glucose 102(H) 65 - 99 mg/dL [facility] INSURANCE BILL BUN 16 6 - 24 mg/dL [facility] INSURANCE BILL Creatinine 1.23 0.76 - 1.27 mg/dL [facility] INSURANCE BILL eGFR by CKD-EPI 68 >59 mL/min/1.7 3 [facility] INSURANCE BILL BUN/Creatinine Ratio 13 9 - 20 [facility] INSURANCE BILL Sodium 138 134 - 144 mmol/L [facility] INSURANCE BILL Potassium 3.9 3.5 - 5.2 mmol/L [facility] INSURANCE BILL Chloride 99 96 - 106 mmol/L [facility] INSURANCE BILL CO2 26 20 - 29 mmol/L [facility] INSURANCE BILL Calcium 9.2 8.7 - 10.2 mg/dL [facility] INSURANCE BILL Protein Total 6.9 6.0 - 8.5 g/dL [facility] INSURANCE BILL Albumin 4.5 3.8 - 4.9 g/dL [facility] INSURANCE BILL Globulin Total 2.4 1.5 - 4.5 g/dL [facility] INSURANCE BILL Albumin/Globulin Ratio 1.9 1.2 - 2.2 [facility] INSURANCE BILL Bilirubin Total 0.7 0.0 - 1.2 mg/dL [facility] INSURANCE BILL Alkaline Phosphatase 59 44 - 121 IU/L [facility] INSURANCE BILL AST 32 0 - 40 IU/L [facility] INSURANCE BILL ALT 27 0 - 44 IU/L [facility] INSURANCE BILL Comment:FASTING Blood BLOOD SPECIMEN / Unknown 07/27/2021 11:07 AM CDT 07/27/2021 Narrative [facility] INSURANCE BILL - 07/28/2021 11:10 AM CDT A courtesy copy of this report has been sent to [facility] Resulting Agency Comment Lab Testing performed at: [employer] [place] [id number] [facility] ??[facility] [phone] Gloria Smith MD LAB - CHEMISTRY MARII ARAUJO [facility] INSURANCE BILL [address] [place] [address] * (ABNORMAL) CBC WITH DIFFERENTIAL (07/27/2021 11:07 AM CDT) WBC 8.1 3.4 - 10.8 x10E3/uL [facility] INSURANCE BILL RBC 4.09(L) 4.14 - 5.80 x10E6/uL [facility] INSURANCE BILL Hemoglobin 12.4(L) 13.0 - 17.7 g/dL [facility] INSURANCE BILL Hematocrit 38.0 37.5 - 51.0 % [facility] INSURANCE BILL MCV 93 79 - 97 fL [facility] INSURANCE BILL MCH 30.3 26.6 - 33.0 pg [facility] INSURANCE BILL MCHC 32.6 31.5 - 35.7 g/dL [facility] INSURANCE BILL RDW 12.6 11.6 - 15.4 % [facility] INSURANCE BILL Platelet Count 171 150 - 450 x10E3/uL [facility] INSURANCE BILL Granulocytes % 36 Not Estab. % [facility] INSURANCE BILL Lymphocytes % 51 Not Estab. % [facility] INSURANCE BILL Monocytes % 6 Not Estab. % [facility] INSURANCE BILL Eosinophils % 6 Not Estab. % [facility] INSURANCE BILL Basophils % 1 Not Estab. % [facility] INSURANCE BILL Immature Cells NOT NEEDED [facility] INSURANCE BILL Comment:Ancillary determined the test is not needed. Granulocytes Absolute 2.9 1.4 - 7.0 x10E3/uL [facility] INSURANCE BILL Lymphocytes Absolute 4.1(H) 0.7 - 3.1 x10E3/uL [facility] INSURANCE BILL Monocytes Absolute 0.5 0.1 - 0.9 x10E3/uL [facility] INSURANCE BILL Eosinophils Absolute 0.5(H) 0.0 - 0.4 x10E3/uL [facility] INSURANCE BILL Basophils Absolute 0.1 0.0 - 0.2 x10E3/uL [facility] INSURANCE BILL Immature Granulocytes 0 Not Estab. % [facility] INSURANCE BILL Immature Granulocytes Absolute 0.0 0.0 - 0.1 x10E3/uL [facility] INSURANCE BILL nRBC NOT NEEDED [facility] INSURANCE BILL Comment:Ancillary determined the test is not needed. Comment Hematology Note: [facility] INSURANCE BILL Comment: Verified by microscopic examination. FASTING Blood BLOOD SPECIMEN / Unknown 07/27/2021 11:07 AM CDT 07/27/2021 Narrative [facility] INSURANCE BILL - 07/28/2021 11:10 AM CDT A courtesy copy of this report has been sent to [facility] Resulting Agency Comment Lab Testing performed at: [employer] ??[facility] [id number] Gloria Smith MD LAB - HEMATOLOGY ORD ERABLES [facility] INSURANCE BILL [address] [place] [address] documented in this encounter Visit Diagnoses Diagnosis 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)- Primary Right shoulder pain, unspecified chronicity documented in this encounter Administered Medications Inactive Administered Medications - up to 3 most recent administrations Medication Order MAR Action Action Date Dose Rate Site lidocaine PF (Xylocaine MPF) 1 % injection Intra-articular, ONCE, 1 dose, On Sun06/03/21 at 1445 $ Given 06/03/2021 2:37 PM PRESIDENT CEO & FOUNDER Right Shoulder triamcinolone acetonide (Kenalog-40) injection 40 mg 40 mg, Intra-articular, ONCE, 1 dose, On Sun06/03/21 at 1445, Shake well before using. $ Given 06/03/2021 2:38 PM PRESIDENT CEO & FOUNDER 40 mg Righ t Shoulder documented in this encounter Care Teams Clinical Instructor Relationship Specialty Start Date End Date Tomas Hyman MD [address] [facility] [address] [place] [address] PCP - General Family Medicine 09/05/18 Isidro Heredia MD Rheumatology 02/09/11 documented as of this encounter
--- OUTSIDE RECORDS SUMMARY | 2024-05-03 04:04 | XMS_ITS | Encounter Summary ---
Author Organization [facility] Address [address] [facility] [place] [address] Care Team Providers Care Television Picture Tube Rebuilder Name Role Phone Isidro Heredia MD Unavailable [phone] Tomas Hyman MD Primary Care Provider [phone] Reason for Visit * Reason Onset Date Comments MEDICATION REFILL 08/03/2021 Encounter Details Date Type Department Care Team (Late st Contact Info) Description 08/03/2021 Refill [facility] Medical [facility] - Rheumatology [address] [place] [address] Gloria Smith MD [address] [place] [phone] MEDICATION REFILL Social History Tobacco Use [...] encounter Miscellaneous Notes * Addendum Note - Aicha Fernando RN - 08/05/2021 12:42 PM CDTAddended by: AICHA FERNANDO on: 08/05/2021 12:42 PM Modules accepted: Orders * Telephone Encounter - Aicha Fernando RN - 08/05/2021 12:41 PM CDT SubQ methotrexate discontinued per Dr. Smith * Telephone Encounter - Gloria Smith MD - 08/05/2021 12:35 PM CDT Yes please d/c mtx injection. * Addendum Note - Aicha Fernando RN - 08/05/2021 10:36 AM CDTAddended by: AICHA FERNANDO on: 08/05/2021 10:36 AM Modules accepted: Orders * Telephone Encounter - Aicha Fernando RN - 08/05/2021 9:34 AM CDT LMOR for patient to contact the office in regards to clarifying if he was able to receive subQ methotrexate. Called x2 * Telephone Encounter - Aicha Fernando RN - 08/04/2021 9:24 AM CDT Will check with Dr. Smith if oral methotrexate should be refilled. Patient was transitioned to subQ and unable to reach patient to see if he was able to pick up operator medication. NON-BIOLOGIC REFILL REQUEST Last OV: 06/03/2021 Next Appointment: 09/02/2021 Last Fill: Methotrexate- 06/09/2021 (SubQ) Pantoprazole- 04/14/2021 Gabapentin- 04/13/2021 Prednisone- 04/13/2021 Celebrex- 04/13/2021 Aspirin- 04/14/2021 Tizanidine- 01/19/2021 Folic Acid- 10/19/2020 Recent Labs Component Name 07/27/21 1107 02/08/21 [...] 1107 02/08/21 1645 10/19/20 1540 08/24/20 1233 08/24/20 1233 EGFR 68 71 >60 - >60 EGFRAFR - 82 >60 - >60 - = values in this interval not displayed. Recent Labs Component Name 07/27/21 1107 02/08/21 1645 10/19/20 1540 AST 32 27 18 ALT 27 20 16 ALKPHOS 59 63 70 TBIL 0.7 0.7 0.6 Last ESR: Recent Labs Component Name 02/08/21 1645 06/29/20 1410 02/06/20 1332 SEDRATE 5 13 12 Last 3 CRP: Recent Labs Component Name 02/08/21 1645 06/29/20 1410 02/06/20 1332 CRP <1 <0.20 0.21 * Telephone Encounter - Mariya Nichole MA - 08/03/2021 1:47 PM CDT JINA 06-03-2021 Last refill 06-15-2020 aspirin ec,pantoprazole ec,methotrexate 06/14/2020 gabapentin,prednisone,celecoxib 10-19-2020 folic acid [id number] Upcoming visit: 09-02-2021 documented in this encounter Plan of Treatment Upcoming Encounters Date Type Department Care Team (Late st Contact Info) Description 06/03/2024 1:00 PM EMERY WHEEL WORKER Appointment [facility] - Rheumatology [address] [place] [phone] 06/03/2024 2:00 PM EMERY WHEEL WORKER Office Visit [facility] - Rheumatology [address] [place] [address] Gloria Smith MD [facility] [place] [phone] documented as of this encounter Visit Diagnoses Diagnosis 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) documented in this encounter Care Teams Television Picture Tube Rebuilder Relationship Specialty Start Date End Date Tomas Hyman MD [address] [place] [address] PCP - General Family Medicine 09/05/18 Isidro Heredia MD Rheumatology 02/09/11 documented as of this encounter
--- OUTSIDE RECORDS SUMMARY | 2024-05-03 04:04 | XMS_ITS | Encounter Summary ---
Author Organization [facility] Address [address] [facility] [place] [address] Care Team Providers Care Edger Liner Name Role Phone Isidro Heredia MD Unavailable [phone] Tomas Hyman MD Primary Care Provider [phone] Reason for Visit * Reason Onset Date Comments General 11/28/2022 Encounter Details Date Type Department Care Team (Late st Contact Info) Description 11/28/2022 Telephone [facility] Medical [facility] - Rheumatology [address] [place] [phone] Gloria Smith MD [address] [place] [phone] General Social History Tobacco Use Types Packs/Day Years [...] encounter Miscellaneous Notes * Telephone Encounter - Gloria Smith MD - 11/28/2022 12:10 AM CDT Please remind patient to have lab works done before infusion. Please schedule follow up with me at the next available appt. documented in this encounter Plan of Treatment Upcoming Encounters Date Type Department Care Team (Late st Contact Info) Description 06/03/2024 1:00 PM PREPARATION DEPARTMENT SUPERVISOR Appointment [facility] - Rheumatology [address] [place] [address] [phone] 06/03/2024 2:00 PM PREPARATION DEPARTMENT SUPERVISOR Office Visit [facility] - Rheumatology [address] [place] [phone] Gloria Smith MD [address] [place] [phone] documented as of this encounter Procedures Procedure Name Priority Date/Time Associated Diagnosis Comments C-REACTIVE PROTEIN Routine 11/29/2022 9: 11 AM CDT 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) ERYTHROCYTE SEDIMENTATION RATE Routine 11/29/2022 9:11 AM CDT 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) CBC W AUTO DIFFERENTIAL Routine 11/29/2022 9:11 AM CDT 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) COMPREHENSIVE METABOLIC PANEL Routine 11/29/2022 9:11 AM CDT 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) documented in this encounter Results * C-REACTIVE PROTEIN (11/29/2022 9:11 AM CDT) C-Reactive Protein <0.20 <=0.50 mg/dL [facility] INSURANCE BILL Blood BLOOD SPECIMEN / Unknown 11/29/2022 9:11 AM CDT 11/29/2022 Narrative Resulting Agency Comment Lab Testing performed at: [facility] [address] ?? [place] [place] [id number] Gloria Smith MD LAB - CHEMISTRY MARII ARAUJO [facility] INSURANCE BILL [address] [place] [address] * ERYTHROCYTE SEDIMENTATION RATE (11/29/2022 9:11 AM CDT) Erythrocyte Sedimentation Rate Westergren 11 0 - 20 MM/HR [facility] INSURANCE BILL Blood BLOOD SPECIMEN / Unknown 11/29/2022 9:11 AM CDT 11/29/2022 Narrative Resulting Agency Comment Lab Testing performed at: [facility] [address] [address] ?? [facility] [phone] Gloria Smith MD LAB - HEMATOLOGY ORD ERABLES [facility] INSURANCE BILL [address] [place] [address] * COMPREHENSIVE METABOLIC PANEL (11/29/2022 9:11 AM CDT) Glucose 104 70 - 105 mg/dL [facility] INSURANCE BILL BUN 15 8.4 - 25.7 mg/dL [facility] INSURANCE BILL Creatinine 0.95 0.72 - 1.25 mg/dL [facility] INSURANCE BILL eGFR by CKD-EPI >90 >=90 mL/min/1.7 3 m2 [facility] INSURANCE BILL Sodium 138 136 - 145 mmol/L [facility] INSURANCE BILL Potassium 4.0 3.5 - 5.1 mmol/L [facility] INSURANCE BILL Chloride 103 98 - 107 mmol/L [facility] INSURANCE BILL CO2 29 23 - 31 mmol/L [facility] INSURANCE BILL Calcium 9.0 8.4 - 10.4 mg/dL [facility] INSURANCE BILL Protein Total 6.5 6.4 - 8.3 gm/dL [facility] INSURANCE BILL Albumin 4.0 3.2 - 4.6 gm/dL [facility] INSURANCE BILL Bilirubin Total 0.6 0.2 - 1.2 mg/dL [facility] INSURANCE BILL Alkaline Phosphatase 49 40 - 150 U/L [facility] INSURANCE BILL AST 21 5 - 34 U/L [facility] INSURANCE BILL ALT 16 0 - 61 U/L [facility] INSURANCE BILL Blood BLOOD SPECIMEN / Unknown 11/29/2022 9:11 AM CDT 11/29/2022 Narrative Resulting Agency Comment Lab Testing performed at: [facility] [address] [facility] ?? [facility] [phone] Gloria Smith MD LAB - CHEMISTRY MARII ARAUJO [facility] INSURANCE BILL [address] [place] [address] * (ABNORMAL) CBC WITH DIFFERENTIAL (11/29/2022 9:11 AM CDT) WBC 7.0 4.4 - 10.7 x10E9/L [facility] INSURANCE BILL RBC 3.79(L) 3.80 - 5.40 x10E12/L [facility] INSURANCE BILL Hemoglobin 11.5(L) 12.0 - 17.6 gm/dL [facility] INSURANCE BILL Hematocrit 35.9 35.2 - 51.7 % [facility] INSURANCE BILL MCV 94.7 80.7 - 98.3 fl [facility] INSURANCE BILL MCH 30.3 26.7 - 34.0 pg [facility] INSURANCE BILL MCHC 32.0 30.8 - 35.9 gm/dL [facility] INSURANCE BILL RDW 13.7 12.1 - 14.9 % [facility] INSURANCE BILL Platelet Count 160 153 - 416 x10E9/L [facility] INSURANCE BILL Comment:MPV FL BLOOD ([facility]) 1 1.3 fl 9.4-12.9 Granulocytes % 35.2(L) 44.0 - 73.0 % [facility] INSURANCE BILL Lymphocytes % 48.6(H) 20.0 - 43.0 % [facility] INSURANCE BILL Monocytes % 7.6 5.0 - 13.0 % [facility] INSURANCE BILL Eosinophils % 7.6(H) 0.0 - 6.0 % [facility] INSURANCE BILL Basophils % 0.9 0.0 - 2.0 % [facility] INSURANCE BILL Granulocytes Absolute 2.45 2.01 - 7.14 x10E9/L [facility] INSURANCE BILL Lymphocytes Absolute 3.39 1.07 - 3.94 x10E9/L [facility] INSURANCE BILL Monocytes Absolute 0.53 0.26 - 1.07 x10E9/L [facility] INSURANCE BILL Eosinophils Absolute 0.53(H) 0 - 0.47 x10E9/L [facility] INSURANCE BILL Basophils Absolute 0.06 0 - 0.08 x10E9/L [facility] INSURANCE BILL Immature Granulocytes 0.1 0 - 1 % [facility] INSURANCE BILL Immature Granulocytes Absolute 0.01 0.00 - 0.06 x10E9/L [facility] INSURANCE BILL nRBC 0 /100 WBC [facility] INSURANCE BILL Blood BLOOD SPECIMEN / Unknown 11/29/2022 9:11 AM CDT 11/29/2022 Narrative Resulting Agency Comment Lab Testing performed at: [facility] [address] [facility] ?? [facility] [phone] Gloria Smith MD LAB - HEMATOLOGY ORD ERABLES [facility] INSURANCE BILL [address] [place] [address] documented in this encounter Visit Diagnoses Diagnosis 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)- Primary documented in this encounter Care Teams Edger Liner Relationship Specialty Start Date End Date Tomas Hyman MD [address] [facility] [address] [place] [address] PCP - General Family Medicine 09/05/18 Isidro Heredia MD Rheumatology 02/09/11 documented as of this encounter
--- OUTSIDE RECORDS SUMMARY | 2024-05-03 04:04 | XMS_ITS | Encounter Summary ---
Author Organization [facility] Address [address] [place] [address] Care Team Providers Care Blueprinter Name Role Phone Isidro Heredia MD Unavailable [phone] Tomas Hyman MD Primary Care Provider [phone] Reason for Visit * Reason Comments Rheumatoid Arthritis Follow-up Encounter Details Date Type Department Care Team (Late st Contact Info) Description 01/30/2023 10:40 AM CDT Office Visit [facility] - Rheumatology [address] [place] [address] Gloria Smith MD [address] [place] [phone] Rheumatoid arthritis of multiple sites with [...] Sign Reading Time Taken Comments Blood Pressure 127/77 01/30/2023 10:56 AM CDT Pulse 70 01/30/2023 10:56 AM CDT Temperature 36.4 ??C (97.5 ??F) 01/30/2023 10:56 AM C DT Respiratory Rate - - Oxygen Saturation 100% 01/30/2023 10:56 AM CDT Inhaled Oxygen Concentration - - Weight 92.1 kg (203 lb) 01/30/2023 10:56 AM CDT Height 177.8 cm (5' 10 ) 01/30/2023 10:56 AM CDT Body Mass Index 29.13 01/30/2023 10:56 AM CDT documented in this encounter Progress Notes * Gloria Smith MD - 01/30/2023 11:19 AM CDT CHIEF COMPLAINTS: Follow-up on rheumatoid [...] 2009, rf 10.2) Last seen on September 05, 2022. Just completed simponi infusion today. Has been doing fine. Feels drained for 1 day after each infusion and then feels much better. No infection. Pain 7/10 mostly in back and neck. Mild pain and puffiness in hands in last week. Pain in ankles inmorning for a few days. Morning stiffness 30min-1hr. Had DEXA recently. No report available. Medication history: mtx 2004-06/2020, inadequate, 10/2020-present simponi [...] History: Diagnosis Date ??? RA (rheumatoid arthritis) ([facility]) Past Surgical History: Procedure Laterality Date ??? Tonsillectomy at 9 years old ALLERGIES: Allergies Allergen Reactions ??? Simvastatin GI Discomfort ??? Hydroxychloroquine Eye Discomfort ??? Plaquenil [Hydroxychloroquine Sulfate] Eye vision disturbance ??? Tuberculin Other ??? Tuberculin Ppd Positive , CXR yrly Dx inactive TB SOCIAL HISTORY: Social History Tobacco Use Smoking Status Never Smokeless Tobacco Never Vaping Use ??? Vaping Use: Never used Social History Substance and Sexual Activity Alcohol [...] except as per HPI. PHYSICAL EXAM: BP 127/77 Pulse 70 Temp 97.5 ??F (36.4 ??C) Ht 1.778 m (5' 10 ) Wt 92.1 kg (203 lb) SpO2 100% General: in no acute distress. HEENT: anicteric sclera, no conjunctival injection, PERRL, no oral ulcers. Neck: supple, nontender, no lymphadenopathy Chest: nontender. Abdomen: soft, nontender Extremities: no peripheral swelling, clubbing or cyanosis Skin: No rash Neurologic: Moves all extremities MSK: Mild tenderness in wrists, mcp pip joints mostly on the right, mild tenderness in left shoulder. LABORATORY: Recent Labs Component Name 11/29/22 0911 07/27/22 1453 04/12/22 1514 WBC 7.0 6.8 8.2 RBC 3.79* 4.19 4.15 HGB 11.5* 13.1 12.9* HCT 35.9 37.2* 38.2 MCV 94.7 89 92 MCHC 32.0 35.2 33.8 PLTCOUNT 160 157 157 MONOCYTPCT 7.6 7 10 EOSINPCT 7.6* 3 4 LYMPHABS 3.39 3.0 3.2* MONOCYTABS 0.53 0.5 0.8 BASOABS 0.06 0.1 0.1 IMMGRANSABS 0.01 0.0 0.0 Recent Labs Component Name 11/29/22 0911 07/27/22 1454 04/12/22 1514 SODIUM 138 129* 139 POTASSIUM 4.0 4.8 4.1 CHLORIDE 103 92* 100 CO2 29 23 26 BUN 15 11 17 CREATININE 0.95 0.99 1.08 GLUCOSE 104 85 106* CALCIUM 9.0 9.2 9.5 ALBUMIN 4.0 4.6 4.2 ALKPHOS 49 48 71 ALT 16 18 19 AST 21 26 26 TBIL 0.6 0.6 0.3 TPROT 6.5 6.6 6.8 EGFR >90 88 79 Recent Labs Component Name 11/29/22 0911 02/08/21 1645 06/29/20 1410 CRP <0.20 <1 <0.20 Recent Labs Component Name 11/29/22 0911 02/08/21 1645 06/29/20 1410 SEDRATE 11 5 13 PROCEDURE: ASSESSMENT & PLAN: Current medication: Simponi 2mg/kg infusion q8wk, MTX 15mg weekly, folic acid 1mg, prednisone 5 mg bid, Celebrex 200 mgb.i.d. 62 year old white male with: Seropositive [...] Follow-up for rheumatoid arthritis. Simponi has been effective. -- Chronic pain is secondary to rheumatoid arthritis, osteoarthritis. Rheumatoid arthritis - continue Simponi infusion - continue methotrexate, low-dose prednisone, Celebrex - repeat CBC and CMP - return to clinic in 4 months [...] results to us. - took alendronate from [id number]. documented in this encounter Plan of Treatment Upcoming Encounters Date Type Department Care Team (Late st Contact Info) Description 06/03/2024 1:00 PM STOGY MAKER Appointment [facility] - Rheumatology [address] [place] [address] 06/03/2024 2:00 PM STOGY MAKER Office Visit [facility] - Rheumatology [address] [place] [address] Gloria Smith MD [address] [place] [phone] documented as of this encounter Procedures Procedure Name Priority Date/Time Associated Diagnosis Comments CBC W AUTO DIFFERENTIAL Routine 01/30/2023 11:58 AM CDT 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) COMPREHENSIVE METABOLIC PANEL Routine 01/30/2023 11:58 AM CDT 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) documented in this encounter Results * (ABNORMAL) COMPREHENSIVE METABOLIC PANEL (01/30/2023 11:58 AM CDT) Glucose 98 70 - 105 mg/dL [facility] INSURANCE BILL BUN 17 7 - 26 mg/dL [facility] INSURANCE BILL Creatinine 0.97 0.72 - 1.25 mg/dL [facility] INSURANCE BILL eGFR by CKD-EPI 89(L) >=90 mL/min/1.7 3 m2 [facility] INSURANCE BILL Sodium 136 136 - 145 mmol/L [facility] INSURANCE BILL Potassium 4.9 3.5 - 5.1 mmol/L [facility] INSURANCE BILL Chloride 101 98 - 107 mmol/L [facility] INSURANCE BILL CO2 25 22 - 29 mmol/L [facility] INSURANCE BILL Calcium 9.2 8.4 - 10.4 mg/dL [facility] INSURANCE BILL Protein Total 7.0 6.4 - 8.3 gm/dL [facility] INSURANCE BILL Albumin 4.0 3.4 - 5.0 gm/dL [facility] INSURANCE BILL Bilirubin Total 0.5 0.2 - 1.2 mg/dL [facility] INSURANCE BILL Alkaline Phosphatase 62 40 - 150 U/L [facility] INSURANCE BILL AST 24 5 - 34 U/L [facility] INSURANCE BILL ALT 20 0 - 55 U/L [facility] INSURANCE BILL Blood BLOOD SPECIMEN / Unknown 01/30/2023 11:58 AM CDT 01/30/2023 Narrative Resulting Agency Comment Lab Testing performed at: [place] [address] [address] ?? [facility] [id number] Gloria Smith MD LAB - CHEMISTRY ORDE VAN [facility] INSURANCE BILL [address] [place] [address] * (ABNORMAL) CBC WITH DIFFERENTIAL (01/30/2023 11:58 AM CDT) WBC 9.1 4.4 - 10.7 x10E9/L [facility] INSURANCE BILL RBC 3.94 3.80 - 5.40 x10E12/L [facility] INSURANCE BILL Hemoglobin 12.0 12.0 - 17.6 gm/dL [facility] INSURANCE BILL Hematocrit 38.5 35.2 - 51.7 % [facility] INSURANCE BILL MCV 97.7 80.7 - 98.3 fl [facility] INSURANCE BILL MCH 30.5 26.7 - 34.0 pg [facility] INSURANCE BILL MCHC 31.2 30.8 - 35.9 gm/dL [facility] INSURANCE BILL RDW 13.9 12.1 - 14.9 % [facility] INSURANCE BILL Platelet Count 151(L) 153 - 416 x10E9/L [facility] INSURANCE BILL Comment:MPV FL BLOOD ([facility]) 1 1.5 fl 9.4-12.9 Granulocytes % 51.4 44.0 - 73.0 % [facility] INSURANCE BILL Lymphocytes % 33.2 20.0 - 43.0 % [facility] INSURANCE BILL Monocytes % 6.8 5.0 - 13.0 % [facility] INSURANCE BILL Eosinophils % 7.3(H) 0.0 - 6.0 % [facility] INSURANCE BILL Basophils % 1.1 0.0 - 2.0 % [facility] INSURANCE BILL Granulocytes Absolute 4.68 2.01 - 7.14 x10E9/L [facility] INSURANCE BILL Lymphocytes Absolute 3.02 1.07 - 3.94 x10E9/L [facility] INSURANCE BILL Monocytes Absolute 0.62 0.26 - 1.07 x10E9/L [facility] INSURANCE BILL Eosinophils Absolute 0.66(H) 0 - 0.47 x10E9/L [facility] INSURANCE BILL Basophils Absolute 0.10(H) 0 - 0.08 x10E9/L [facility] INSURANCE BILL Immature Granulocytes 0.2 0 - 1 % [facility] INSURANCE BILL Immature Granulocytes Absolute 0.02 0.00 - 0.06 x10E9/L [facility] INSURANCE BILL nRBC 0 /100 WBC [facility] INSURANCE BILL Blood BLOOD SPECIMEN / Unknown 01/30/2023 11:58 AM CDT 01/30/2023 Narrative Resulting Agency Comment Lab Testing performed at: [address] ?? [facility] [id number] Gloria Smith MD LAB - HEMATOLOGY ORD ERABLES [facility] INSURANCE BILL [address] [place] [address] documented in this encounter Visit Diagnoses Diagnosis 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)- Primary documented in this encounter Care Teams Blueprinter Relationship Specialty Start Date End Date Tomas Hyman MD [address] [place] [address] PCP - General Family Medicine 09/05/18 Isidro Heredia MD Rheumatology 02/09/11 documented as of this encounter
--- OUTSIDE RECORDS SUMMARY | 2024-05-03 04:04 | XMS_ITS | Encounter Summary ---
Author Organization [facility] Address [address] [place] [address] Care Team Providers Care Vice President Risk Management Name Role Phone Isidro Heredia MD Unavailable [phone] Tomas Hyman MD Primary Care Provider [phone] Reason for Visit * Treatment (Elective) - Closed Specialty Diagnoses / Procedures Referred By Contsarahi t Referred To Contact Diagnoses 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) Procedures HI GOLIMUMAB FOR IV USE 1MG Gloria Smith MD [address] [place] [address] [address] Referral ID Status Reason Start Date Expiration Date Visits Re quested Visits Authorized [id number] Closed 05/22/2022 04/29/2023 12 12 Encounter Details Date Type Department Care Team (Latest Contact Info) Description 10/04/2022 12:04 PM CDT - 10/04/2022 11:59 PM CDT Hospital Encounter [facility] [address] [address] Tomas Hyman MD [address] [place] [address] Discharge Disposition: Home or Self [...] Sign Reading Time Taken Comments Blood Pressure 128/74 10/04/2022 12:08 PM CDT Pulse 70 10/04/2022 12:08 PM CDT Temperature 35.9 ??C (96.6 ??F) 10/04/2022 12:07 PM C DT Respiratory Rate 18 10/04/2022 12:07 PM CDT Oxygen Saturation - - Inhaled Oxygen Concentration - - Weight - - Height - - Body Mass Index - - documented in this encounter Discharge Instructions * Discharge Instructions* Makayla Quiñones RN - 10/04/2022 1:11 PM CDT reivewed documented in this encounter Medications at Time of Discharge Medication Sig Dispensed Refills Start Date End Date aspirin EC (ECOTRIN) 81 MG tablet Take 1 (one) tablet by mouth once daily 90 tablet 11/14/2021 atorvastatin (LIPITOR) 40 MG tablet Take 1 (one) tablet by mouth at bedtime buPROPion (Wellbutrin) 100 MG tablet Take 1 (one) tablet by mouth 2 times daily 09/04/2022 [id number]-nglb-ek lysorb, PF, 0.5-1-0.5 % SOLN Instill 1 [...] by mouth 2 times daily 180 capsule 09/04/2022 11/27/2022 folic acid (Folvite) 1 MG tabletIndications:H igh risk medication use Take 1 (one) tablet by mouth once daily 90 tablet 3 09/04/2022 02/16/2024 gabapentin (Neurontin) 300 MG capsuleIndications: Neuropathy Take 1 (one) capsule by mouth 3 times daily 270 capsule 09/04/2022 11/27/2022 methotrexate 2.5 MG tabletIndications:R heumatoid 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) Take 6 (six) tablets by mouth every 7 days 72 tablet 09/04/2022 11/27/2022 predniSONE (Deltasone) 5 MG tabletIndications:R heumatoid 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) Take 1 (one) tablet by mouth 2 times daily 180 tablet 09/04/2022 11/27/2022 tiZANidine (Zanaflex) 4 MG tabletIndications:C hronic neck pain,Chronic back pain, unspecified back location, unspecified back pain laterality Take 1 (one) tablet by mouth 2 times daily as needed for Muscle Spasms 60 tablet 1 09/04/2022 03/23/2023 documented as of this encounter Progress Notes * LevMakayla montenegro RN - 10/04/2022 1:10 PM CDT Chalino Ish 1960 10/04/2022 Patient completed scheduled Simponi at [facility]. Please call with any questions at [phone]. BP 128/74 Pulse 70 Temp 96.6 ??F Resp 18 Medications 0.9% NaCl injection 1-40 mL (10 mL Intracatheter $ Given 10/04/22 1306) golimumab (Simponi Aria) 180 mg in 0.9% NaCl IV 100 mL infusion (0 mg Intravenous Stopped 10/04/22 1306) Pt tolerated infusion center well. Patient has no further questions at this time. Patient to receive further treatments at another infusion center documented in this encounter Plan of Treatment Upcoming Encounters Date Type Department Care Team (Late st Contact Info) Description 06/03/2024 1:00 PM DIRECTOR SPECIALTY Appointment [facility] - Rheumatology [address] [place] [address] 06/03/2024 2:00 PM DIRECTOR SPECIALTY Office Visit [facility] - Rheumatology [address] [place] [address] Gloria Smith MD [address] [place] [phone] documented as of this encounter Visit Diagnoses Diagnosis 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)- Primary documented in this encounter Administered Medications Inactive Administered Medications - up to 3 most recent administrations Medication Order MAR Action Action Date Dose Rate Site 0.9% NaCl injection 1-40 mL 1-40 mL, Intracatheter, PRN, Other, vascular access device flush, Starting on Sun10/04/22 at 1217, Until Sun10/05/22 at 0016, For Port-a-Cath, Central Line, and PICC, flush with 10ml prior to and after each use and flush with 20ml after blood draws. $ Given 10/04/2022 1:06 PM CDT 10 mL $ Given 10/04/2022 12:22 PM CDT 10 mL golimumab (Simponi Aria) 180 mg in 0.9% NaCl IV 100 mL infusion 180 mg (2 mg/kg ? 90 kg), at 200 mL/hr, Administer over 30 Minutes, Intravenous, ONCE, 1 dose, On Sun10/04/22 at 1230, Total volume to be infused with estimated MFR overfill 110 mL. Use in-line low protein binding 0.22 micrometer filter. $ New Bag/Syringe 10/04/2022 12:36 PM CDT 180 mg 200 mL/hr documented in this encounter Care Teams Vice President Risk Management Relationship Specialty Start Date End Date Tomas Hyman MD [address] [place] [address] PCP - General Family Medicine 09/05/18 Isidro Heredia MD Rheumatology 02/09/11 documented as of this encounter
--- OUTSIDE RECORDS SUMMARY | 2024-05-03 04:04 | XMS_ITS | Encounter Summary ---
Author Organization [facility] Address [address] [facility] [place] [address] Care Team Providers Care Assignment Agent Name Role Phone Isidro Heredia MD Unavailable [phone] Tomas Hyman MD Primary Care Provider [phone] Reason for Visit * Treatment (Elective) - Closed Specialty Diagnoses / Procedures Referred By Lawrence shah Referred To Contact Diagnoses 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) Procedures FL GOLIMUMAB FOR IV USE 1MG Gloria Smith MD [address] [place] [address] [address] Referral ID Status Reason Start Date Expiration Date Visits Re quested Visits Authorized [id number] Closed 05/22/2022 04/29/2023 12 12 Encounter Details Date Type Department Care Team (Late st Contact Info) Description 01/30/2023 9:31 AM CDT - 01/30/2023 11:59 PM CDT Hospital Encounter [facility] - Rheumatology [address] [place] [address] Gloria Smith MD [address] [place] [address] Rheumatology Discharge Disposition: Home or [...] Sign Reading Time Taken Comments Blood Pressure 117/67 01/30/2023 10:42 AM CDT Pulse 67 01/30/2023 10:42 AM CDT Temperature 36.4 ??C (97.6 ??F) 01/30/2023 10:06 AM C DT Respiratory Rate - - Oxygen Saturation - - Inhaled Oxygen Concentration - - Weight 92.1 kg (203 lb) 01/30/2023 10:06 AM CDT Height - - Body Mass Index 29.13 07/05/2022 10:45 AM PC SUPPORT SPECIALIST documented in this encounter Discharge Instructions * Discharge Instructions* Shelby Higgins RN - 01/30/2023 10:17 AM CDT Discharge Instructions [facility] Rheumatology You have received your [...] Sunday through 01-02 call the office at [phone]. After hours or on the weekend call [...] have chosen [facility] as your Provider documented in this [...] tablet by mouth 2 times daily 09/04/2022 qgtaldvszyv-qzpx-xjei sorb, PF, 0.5-1-0.5 % SOLN Instill 1 [...] Progress Notes * Shelby Higgins RN - 01/30/2023 10:19 AM CDT JOSE Deng [id number] 01/30/2023 Diagnosis: Rheumatoid arthritis without rheumatoid factor, multiple sites (CMS/HCC) [M06.09]. Pt denies symptoms of infection or antibiotic use, no open wounds, or recent surgery, or plans for surgery in the next couple of weeks. Pt is aware that we use the 0-10 pain scale to assess discomfort. 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 front desk administrator pt signs consent for treatment for this infusion. BP 120/67 Pulse 64 Temp 97.6 ??F Wt 92.1 kg (203 lb) ?? SCHEDULED MEDICATIONS: ?? golimumab (Simponi Aria) 180 mg in 0.9% NaCl IV 100 mL infusion, Intravenous, Once ?? Number of 24 gauge 3/4 inch placed in Right antecubital ?? 1 attempt(s). Patient monitored throughout procedure. Last OV-09/19 Next OV-02/19 TB Gold-N/A Hepatitis Screen-N/A Last Routine Labs-12/20 Next Labs Due- 02/19 Tolerated well? Yes Next treatment? Q 56 days Shelby Higgins RN documented in this encounter Plan of Treatment Upcoming Encounters Date Type Department Care Team (Late st Contact Info) Description 06/03/2024 1:00 PM PC SUPPORT SPECIALIST Appointment [facility] - Rheumatology [address] [place] [phone] 06/03/2024 2:00 PM PC SUPPORT SPECIALIST Office Visit [facility] - Rheumatology [address] [place] [address] Gloria Smith MD [address] [place] [phone] documented as of this encounter Visit Diagnoses [...] 30 Minutes, Intravenous, ONCE, 1 dose, On Sun01/30/23 at 1015, Use in-line low protein binding 0.22 micrometer filter. $ New Bag/Syringe 01/30/2023 10:12 AM CDT 180 mg 200 mL/hr documented in this encounter Care Teams Assignment Agent Relationship Specialty Start Date End Date Tomas Hyman MD [address] [place] [address] [address] [place] [address] PCP - General Family Medicine 09/05/18 Isidro Heredia MD Rheumatology 02/09/11 documented as of this encounter
--- OUTSIDE RECORDS SUMMARY | 2024-05-03 04:05 | XMS_ITS | Encounter Summary ---
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, multiple sites (HCC) Procedures HI GOLIMUMAB FOR IV USE 1MG Gloria Smith MD [address] [place] [address] [address] Referral ID Status Reason Start Date Expiration Date Visits Re quested Visits Authorized [id number] Closed 10/19/2020 04/29/2021 1 8 Encounter Details Date Type Department Care Team (Late st Contact Info) Description 12/14/2020 1:00 PM CDT - 12/14/2020 11:59 PM CDT Hospital Encounter [facility] - Rheumatology [address] [place] [address] Gloria Smith MD [address] [place] [address] Discharge Disposition: Home or Self [...] have Coronavirus / COVID-19? No / Unsure 11/16/2020 12:28 PM CDT documented as of this encounter Last Filed Vital Signs Vital Sign Reading Time Taken Comments Blood Pressure 120/70 12/14/2020 1:21 PM CDT Pulse 72 12/14/2020 1:21 PM CDT Temperature 36.9 ??C (98.4 ??F) 12/14/2020 1:21 PM CD T Respiratory Rate 18 12/14/2020 1:21 PM CDT Oxygen Saturation - - Inhaled Oxygen Concentration - - Weight 110.2 kg (243 lb) 12/14/2020 1:21 PM CDT Height - - Body Mass Index 34.87 10/19/2020 2:36 PM CDT documented in this encounter Discharge Instructions * Discharge Instructions* Jody Sahu RN - 12/14/2020 1:42 PM CDT [place] Rhe[facility]ology Post Infusion instructions You have received [...] rash or breathing problems please call your [facility] Rheumatology physician for further instructions. While most problems that occur around the time of an infusion are very mild and not dangerous, they should not be ignored. Sunday through Sunday 9-5 call the office at [phone] After hours or on the weekend call the exchange at [phone] If you have had lab work done [...] you and are glad you have chosen [facility] as your provider. Jody Sahu RN documented in this encounter Medications at Time of Discharge Medication Sig Dispensed Refills Start Date End Date atorvastatin (LIPITOR) 40 MG tablet Take 1 (one) tablet by mouth at bedtime sxziqbqsusm-pulc-bku ysorb, PF, 0.5-1-0.5 % SOLN Instill 1 drop into both eyes 2 times daily carvedilol (COREG) 12.5 MG tablet Take 1 (one) tablet by mouth 2 times daily 07/13/2020 ferrous sulfate 325 (65 FE) MG tablet Take 1 (one) tablet by mouth once daily Glucosamine-Chondroi t-Vit C-Mn (GLUCOSAMINE CHONDR 1500 COMPLX [...] EC (ECOTRIN) 81 MG tablet Take 1 tablet by mouth once daily 90 tablet 3 04/05/2020 01/17/2021 buPROPion (WELLBUTRIN) 100 MG tablet Take 100 mg by mouth 2 times daily 10/28/2020 10/28/2021 celecoxib (CELEBREX) 200 MG capsuleIndications:R heumatoid 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) Take 1 (one) capsule by mouth 2 times daily 180 capsule 1 06/29/2020 01/17/2021 folic acid (FOLVITE) 1 MG tablet Take 1 (one) tablet by mouth once daily 90 tablet 4 10/19/2020 08/03/2021 gabapentin (NEURONTIN) 300 MG capsule Take 1 (one) capsule by mouth 3 times daily 270 capsule 11/01/2020 01/17/2021 methotrexate 2.5 MG tablet Take 6 (six) tablets by mouth every 7 days 78 tablet 10/19/2020 01/17/2021 pantoprazole EC (PROTONIX) 40 MG tablet Take 1 (one) tablet by mouth once daily 90 tablet 11/01/2020 01/17/2021 predniSONE (DELTASONE) 5 MG tablet Take 1 (one) tablet by mouth 2 times daily 180 tablet 11/01/2020 01/17/2021 tiZANidine (ZANAFLEX) 4 MG tablet Take 1 tablet by mouth at bedtime 30 tablet 1 04/18/2019 01/17/2021 documented as of this encounter Progress Notes * Jody Sahu RN - 12/14/2020 1:38 PM CDT JOSE Deng [id number] 12/14/2020 Diagnosis: Rheumatoid arthritis without rheumatoid factor, multiple sites [M06.09]. Pt denies symptoms of infection or antibiotic use, no open wounds, or recent surgery, or plans for surgery in the next couple of weeks. Pt is aware that we use the 0-10 pain scale to assess discomfort. 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 front desk specialist pt signs consent for treatment for this infusion. BP 120/70 Pulse 72 Temp 98.4 ??F Resp 18 Wt 110.2 kg (243 lb) BMI 34.87 kg/m2 @ MEDICATIONS FOR CURRENT ENCOUNTER: ?? SCHEDULED MEDICATIONS: ?? golimumab (Simponi Aria) 200 mg in 0.9% NaCl IV 100 mL infusion, Intravenous, Once ?? Number of 24 gauge 3/4 inch placed in Left antecubital ?? 1 attempt(s). Patient monitored throughout procedure. Tolerated well? Yes Next treatment? 8 weeks Jody Sahu, RN documented in this encounter Plan of Treatment Upcoming Encounters Date Type Department Care Team (Late st Contact Info) Description 06/03/2024 1:00 PM CO FOUNDER AND CEO Appointment [facility] - Rheumatology [address] [place] [phone] 06/03/2024 2:00 PM CO FOUNDER AND CEO Office Visit [facility] - Rheumatology [address] [place] [address] Gloria Smith MD [address] [place] [phone] documented as of this encounter Visit [...] 30 Minutes, Intravenous, ONCE, 1 dose, On Sun12/14/20 at 1330, Use in-line low protein binding 0.22 micrometer filter. $ New Bag/Syringe 12/14/2020 1:33 PM CDT 200 mg 200 mL/hr documented in this encounter Care Teams Soda Dispenser Relationship Specialty Start Date End Date Tomas Hyman MD [address] [facility] [address] [place] [address] PCP - General Family Medicine 09/05/18 Isidro Heredia MD Rheumatology 02/09/11 documented as of this encounter
--- OUTSIDE RECORDS SUMMARY | 2024-05-03 04:05 | XMS_ITS | Encounter Summary ---
Author Organization [facility] Address [address] [facility] [place] [address] Care Team Providers Care Casting Room Operator Name Role Phone Isidro Heredia MD Unavailable [phone] Tomas Hyman MD Primary Care Provider Encounter Details Date Type Department Care Team (Latest Contact Info) Description 07/27/2020 Travel Social History Tobacco Use Types Packs/Day [...] have Coronavirus / COVID-19? No / Unsure 07/27/2020 1:16 PM CDT documented as of this encounter Plan of Treatment Upcoming Encounters Date Type Department Care Team (Late st Contact Info) Description 06/03/2024 1:00 PM SIGNAL INTEGRITY ENGINEER Appointment [facility] - Rheumatology [address] [place] [address] 06/03/2024 2:00 PM SIGNAL INTEGRITY ENGINEER Office Visit [facility] - Rheumatology [address] [place] [address] Gloria Smith MD [address] [place] [phone] documented as of this encounter Visit Diagnoses Not on filedocumented in this encounter Care Teams Casting Room Operator Relationship Specialty Start Date End Date Tomas Hyman MD [address] [facility] [address] [place] [address] PCP - General Family Medicine 09/05/18 Isidro Heredia MD Rheumatology 02/09/11 documented as of this encounter
--- OUTSIDE RECORDS SUMMARY | 2024-05-03 04:05 | XMS_ITS | Encounter Summary ---
Author Organization [facility] Address [address] [facility] [place] [address] Care Team Providers Care Africana Studies Professor Name Role Phone Isidro Heredia MD Unavailable [phone] Tomas Hyman MD Primary Care Provider [phone] Encounter Details Date Type Department Care Team (Latest Contact Info) Description 06/29/2020 Travel Social History Tobacco Use Types Packs/Day [...] have Coronavirus / COVID-19? No / Unsure 06/29/2020 11:44 AM CIGAR MACHINE FEEDER documented as of this encounter Plan of Treatment Upcoming Encounters Date Type Department Care Team (Late st Contact Info) Description 06/03/2024 1:00 PM CIGAR MACHINE FEEDER Appointment [facility] - Rheumatology [address] [place] [address] 06/03/2024 2:00 PM CIGAR MACHINE FEEDER Office Visit [facility] - Rheumatology [address] [place] [address] Gloria Smith MD [address] [place] [phone] documented as of this encounter Visit Diagnoses Not on filedocumented in this encounter Care Teams Africana Studies Professor Relationship Specialty Start Date End Date Tomas Hyman MD [address] [facility] [address] [place] [address] PCP - General Family Medicine 09/05/18 Isidro Heredia MD Rheumatology 02/09/11 documented as of this encounter
--- OUTSIDE RECORDS SUMMARY | 2024-05-03 04:05 | XMS_ITS | Encounter Summary ---
Author Organization [facility] Address [address] [facility] [address] [place] [address] Care Team Providers Care Transactional Paralegal Name Role Phone Isidro Heredia MD Unavailable [phone] Tomas Hyman MD Primary Care Provider [phone] Encounter Details Date Type Department Care Team (Latest Contact Info) Description 04/09/2020 Travel Social History Tobacco Use Types Packs/Day [...] have Coronavirus / COVID-19? No / Unsure 04/09/2020 1:56 PM KICK PRESS SETTER documented as of this encounter Plan of Treatment Upcoming Encounters Date Type Department Care Team (Late st Contact Info) Description 06/03/2024 1:00 PM KICK PRESS SETTER Appointment [facility] - Rheumatology [address] [place] [address] 06/03/2024 2:00 PM KICK PRESS SETTER Office Visit [facility] - Rheumatology [address] [place] [address] Gloria Smith MD [address] [place] [phone] documented as of this encounter Visit Diagnoses Not on filedocumented in this encounter Care Teams Transactional Paralegal Relationship Specialty Start Date End Date Tomas Hyman MD [address] [facility] [address] [place] [address] PCP - General Family Medicine 09/05/18 Isidro Heredia MD Rheumatology 02/09/11 documented as of this encounter
--- OUTSIDE RECORDS SUMMARY | 2024-05-03 04:05 | XMS_ITS | Encounter Summary ---
Author Organization [facility] Address [address] [place] [address] Care Team Providers Care Plan Coordinator Name Role Phone Isidro Heredia MD Unavailable [phone] Tomas Hyman MD Primary Care Provider [phone] Reason for Visit * Treatment (Routine) - Closed Specialty Diagnoses / Procedures Referred By Lawrence shah Referred To Contact Infusion Therapy Nurse Diagnoses Rheumatoid arthritis without rheumatoid factor, multiple sites (HCC) Procedures MD INFLIXIMAB INJECTION Gloria Smith MD [address] [place] [address] [address] Referral ID Status Reason Start Date Expiration Date Visits Re quested Visits Authorized [id number] Closed 05/09/2019 04/29/2020 1 12 Encounter Details Date Type Department Care Team (Late st Contact Info) Description 03/05/2020 10:37 AM MANAGER ACTUARIAL - 03/05/2020 11:59 PM MANAGER ACTUARIAL Hospital Encounter [facility] Medical [facility] - Rheumatology [address] [place] [address] Gloria Smith MD [address] [place] [phone] Discharge Disposition: Home or Self Care [...] have Coronavirus / COVID-19? No / Unsure 03/05/2020 11:52 AM MANAGER ACTUARIAL documented as of this encounter Last Filed Vital Signs Vital Sign Reading Time Taken Comments Blood Pressure 128/85 03/05/2020 11:20 AM MANAGER ACTUARIAL Pulse 77 03/05/2020 11:20 AM MANAGER ACTUARIAL Temperature 37.1 ??C (98.8 ??F) 03/05/2020 11:[address] Respiratory Rate 18 03/05/2020 11:20 AM MANAGER ACTUARIAL Oxygen Saturation - - Inhaled Oxygen Concentration - - Weight 103.9 kg (229 lb) 03/05/2020 11:20 AM MANAGER ACTUARIAL Height - - Body Mass Index 32.86 11/10/2019 10:34 AM CDT documented in this encounter Discharge Instructions * Discharge Instructions* Jody Sahu RN - 03/05/2020 11:45 AM MANAGER ACTUARIAL OR Rheumatology Post Infusion instructions You have received [...] rash or breathing problems please call your [facility] Rheumatology physician for further instructions. While most problems that occur around the time of an infusion are very mild and not dangerous, they should not be ignored. Sunday through Sunday 9-5 call the office at [phone] After hours or on the weekend call the exchange at [phone] If you have had lab work done [...] you and are glad you have chosen [facility] as your provider. Jody Sahu, RN GER ACTUARIAL documented in this encounter Medications at Time of Discharge Medication Sig Dispensed Refills Start Date End Date atorvastatin (LIPITOR) 40 MG tablet Take 1 (one) tablet by mouth at bedtime tjxggshafon-nmbf-pin ysorb, PF, 0.5-1-0.5 % SOLN Instill 1 drop into both eyes 2 times daily ferrous sulfate 325 (65 FE) MG tablet Take 1 (one) tablet by mouth once daily Glucosamine-Chondroi t-Vit C-Mn (GLUCOSAMINE CHONDR 1500 COMPLX PO) Take 1 Tab by mouth once daily hydroCHLOROthiazide (HYDRODIURIL) 25 MG tablet Take 1 [...] 49.5 mg by mouth 2 times daily ZYRTEC 10 MG TABS Take 1 (one) tablet by mouth once daily Seasonal (nov aspirin EC (ECOTRIN) 81 MG tablet Take 1 tablet by mouth once daily 90 tablet 3 04/15/2019 04/05/2020 buPROPion (WELLBUTRIN) 100 MG tablet Take 100 mg by mouth 2 times daily 10/16/2019 10/15/2020 buPROPion (WELLBUTRIN) 100 MG tablet Take 100 mg by mouth 2 times daily 07/14/2019 07/12/2020 carvedilol (COREG) 12.5 MG tablet Take 12.5 mg by mouth 2 times daily 07/14/2019 07/12/2020 folic acid (FOLVITE) 1 MG tablet Take 1 tablet by mouth once daily 90 tablet 4 04/18/2019 04/05/2020 gabapentin (NEURONTIN) 300 MG capsule Take 1 capsule by mouth 3 times daily 270 capsule 1 01/21/2020 07/12/2020 InFLIXimab (REMICADE IV) 600 mg by Intravenous route as directed Every 4 weeks 11/16/2020 methotrexate 2.5 MG tablet Take 6 tablets by mouth every 7 days 72 tablet 2 12/12/2018 04/05/2020 naproxen (NAPROSYN) 500 MG tablet Take 1 tablet by mouth 2 times daily 180 tablet 2 10/23/2019 06/29/2020 pantoprazole EC (PROTONIX) 40 MG tablet Take 1 tablet by mouth once daily 90 tablet 01/21/2020 04/05/2020 predniSONE (DELTASONE) 5 MG tablet Take 1 tablet by mouth 2 times daily 180 tablet 10/23/2019 07/12/2020 tiZANidine (ZANAFLEX) 4 MG tablet Take 1 tablet by mouth at bedtime 30 tablet 1 04/18/2019 01/17/2021 documented as of this encounter Progress Notes * Jody Sahu, RN - 03/05/2020 11:45 AM CST JOSE Deng [id number] 03/05/2020 Diagnosis: Rheumatoid arthritis without rheumatoid factor, multiple sites [M06.09]. Pt denies symptoms of infection or antibiotic use, no open wounds, or recent surgery, or plans for surgery in the next couple of weeks. Pt is aware that we use the 0-10 pain scale to assess discomfort. 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 front desk assistant pt signs consent for treatment for this infusion. BP 128/85 Pulse 77 Temp 98.8 ??F Resp 18 Wt 103.9 kg (229 lb) BMI 32.86 kg/m2 @ MEDICATIONS FOR CURRENT ENCOUNTER: ?? SCHEDULED MEDICATIONS: ? inFLIXimab (REMICADE) 600 mg in 0.9% NaCl IV 250 mL infusion, Intravenous, Once ?? Number of 24 gauge 3/4 inch placed in Right antecubital ?? 1 attempt(s). Patient monitored throughout procedure. Tolerated well? Yes Next treatment? 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 Use with in-line filter. $ New Bag/Syringe 03/05/2020 11:39 AM MANAGER ACTUARIAL 600 mg 250 mL/hr documented in this encounter Care Teams Plan Coordinator Relationship Specialty Start Date End Date Tomas Hyman MD [address] [facility] [address] [place] [address] PCP - General Family Medicine 09/05/18 Isidro Heredia MD Rheumatology 02/09/11 documented as of this encounter
--- OUTSIDE RECORDS SUMMARY | 2024-05-03 04:05 | XMS_ITS | Encounter Summary ---
Author Organization [facility] Address [address] [facility] [place] [address] Care Team Providers Care Fingerprinter Name Role Phone Isidro Heredia MD Unavailable [phone] Tomas Hyman MD Primary Care Provider [phone] Encounter Details Date Type Department Care Team (Latest Contact Info) Description 03/05/2020 Travel Social History Tobacco Use Types Packs/Day [...] COVID-19? No / Unsure 03/05/2020 11:52 AM RESEARCH NUTRITIONIST documented as of this encounter Plan of Treatment Upcoming Encounters Date Type Department Care Team (Late st Contact Info) Description 06/03/2024 1:00 PM RESEARCH NUTRITIONIST Appointment [facility] - Rheumatology [address] [place] [address] 06/03/2024 2:00 PM RESEARCH NUTRITIONIST Office Visit [facility] - Rheumatology [address] [place] [address] Gloria Smith MD [address] [place] [phone] documented as of this encounter Visit Diagnoses Not on filedocumented in this encounter Care Teams Fingerprinter Relationship Specialty Start Date End Date Tomas Hyman MD [address] [facility] [address] [place] [address] PCP - General Family Medicine 09/05/18 Isidro Heredia MD Rheumatology 02/09/11 documented as of this encounter
--- OUTSIDE RECORDS SUMMARY | 2024-05-03 04:05 | XMS_ITS | Encounter Summary ---
Author Organization [facility] Address [address] [facility] [place] [address] Care Team Providers Care Breastfeeding Educator Name Role Phone Isidro Heredia MD Unavailable Tomas Hyman MD Primary Care Provider [phone] Reason for Visit * Reason Onset Date Comments Question 04/06/2020 Encounter Details Date Type Department Care Team (Late st Contact Info) Description 04/06/2020 Telephone [facility] Orthopedics [address] [place] [address], [address] [address] Nini Han MD [address] [place] [address] Question Social History Tobacco Use Types Packs/Day Years [...] have Coronavirus / COVID-19? No / Unsure 04/06/2020 1:43 PM RELIEF MASTER documented as of this encounter Miscellaneous Notes * Telephone Encounter - Eryn Matos - 04/06/2020 3:48 PM CST LEFT 2 MESSAGES ASKING CHALINO CASEY TO CALL ME BACK TO SCHEDULE AN APPOINTMENT EF MASTER * Telephone Encounter - Eryn Matos Shahnaz - 04/06/2020 3:47 PM CST ----- Message from Gloria Smith MD sent at 04/06/2020 3:27 PM RELIEF MASTER ----- Regarding: referral to dr Ortega Referring him to Dr. Ortega. Dx: right palm ganglion cyst. EF MASTER documented in this encounter Plan of Treatment Upcoming Encounters Date Type Department Care Team (Late st Contact Info) Description 06/03/2024 1:00 PM RELIEF MASTER Appointment [facility] - Rheumatology [address] [place] [address] 06/03/2024 2:00 PM RELIEF MASTER Office Visit [facility] - Rheumatology [address] [place] [address] Gloria Smith MD [address] [place] [phone] documented as of this encounter Visit Diagnoses Not on filedocumented in this encounter Care Teams Breastfeeding Educator Relationship Specialty Start Date End Date Tomas Hyman MD [address] [facility] [address] [place] [address] PCP - General Family Medicine 09/05/18 Isidro Heredia MD Rheumatology 02/09/11 documented as of this encounter
--- OUTSIDE RECORDS SUMMARY | 2024-05-03 04:05 | XMS_ITS | Encounter Summary ---
Author Organization [facility] Address [address] [facility] [place] [address] Care Team Providers Care Contour Stitcher Name Role Phone Isidro Heredia MD Unavailable [phone] Tomas Hyman MD Primary Care Provider [phone] Encounter Details Date Type Department Care Team (Latest Contact Info) Description 09/21/2020 Travel Social History Tobacco Use Types Packs/Day [...] have Coronavirus / COVID-19? No / Unsure 09/21/2020 1:40 PM CDT documented as of this encounter Plan of Treatment Upcoming Encounters Date Type Department Care Team (Late st Contact Info) Description 06/03/2024 1:00 PM CATH LAB Appointment [facility] - Rheumatology [address] [place] [address] 06/03/2024 2:00 PM CATH LAB Office Visit [facility] - Rheumatology [address] [place] [address] Gloria Smith MD [address] [place] [phone] documented as of this encounter Visit Diagnoses Not on filedocumented in this encounter Care Teams Contour Stitcher Relationship Specialty Start Date End Date Tomas Hyman MD [address] [facility] [address] [place] [address] PCP - General Family Medicine 09/05/18 Isidro Heredia MD Rheumatology 02/09/11 documented as of this encounter
--- OUTSIDE RECORDS SUMMARY | 2024-05-03 04:05 | XMS_ITS | Encounter Summary ---
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, multiple sites (HCC) Procedures AK INFLIXIMAB INJECTION Gloria Smith MD [address] [place] [address] [facility] [address] [address] Referral ID Status Reason Start Date Expiration Date Visits Re quested Visits Authorized [id number] Closed 05/04/2020 04/29/2021 12 12 Encounter Details Date Type Department Care Team (Late st Contact Info) Description 06/29/2020 10:57 AM COUNTER MOLDER - 06/29/2020 11:59 PM COUNTER MOLDER Hospital Encounter [facility] Medical [facility] - Rheumatology [address] [place] [address] Gloria Smith MD [address] [place], [place] [address], [place] [address] Discharge Disposition: Home or Self [...] COVID-19? No / Unsure 06/29/2020 11:44 AM COUNTER MOLDER documented as of this encounter Last Filed Vital Signs Vital Sign Reading Time Taken Comments Blood Pressure 130/74 06/29/2020 11:14 AM COUNTER MOLDER Pulse 79 06/29/2020 11:14 AM COUNTER MOLDER Temperature 36.6 ??C (97.9 ??F) 06/29/2020 11:[address] Respiratory Rate 18 06/29/2020 11:14 AM COUNTER MOLDER Oxygen Saturation - - Inhaled Oxygen Concentration - - Weight 105.7 kg (233 lb) 06/29/2020 11:14 AM COUNTER MOLDER Height - - Body Mass Index 33.43 05/10/2020 10:26 AM COUNTER MOLDER documented in this encounter Discharge Instructions * Discharge Instructions* Jody Sahu RN - 06/29/2020 11:20 AM COUNTER MOLDER [place] Rheumatology Post Infusion instructions You have received [...] rash or breathing problems please call your [facility] Rheumatology physician for further instructions. While most problems that occur around the time of an infusion are very mild and not dangerous, they should not be ignored. Sunday through Sunday 9-5 call the office at [phone] After hours or on the weekend call the exchange at [phone] If you have had lab work done [...] you and are glad you have chosen [facility] as your provider. Jody Sahu, TOVA TER MOLDER documented in this encounter Medications at Time of Discharge Medication Sig Dispensed Refills Start Date End Date atorvastatin (LIPITOR) 40 MG tablet Take 1 (one) tablet by mouth at bedtime kjenzvnhyiv-tlyz-zmx ysorb, PF, 0.5-1-0.5 % SOLN Instill 1 [...] by mouth 2 times daily 07/14/2019 07/12/2020 celecoxib (CELEBREX) 200 MG capsuleIndications:R heumatoid 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) Take 1 (one) capsule by mouth 2 times daily 180 capsule 1 06/29/2020 01/17/2021 gabapentin (NEURONTIN) 300 MG capsule Take 1 capsule by mouth 3 times daily 270 capsule 1 01/21/2020 07/12/2020 InFLIXimab (REMICADE IV) 600 mg by Intravenous route as directed Every 4 weeks 11/16/2020 leflunomide (ARAVA) 20 MG tablet Take 1 (one) tablet by mouth once daily 30 tablet 2 06/29/2020 07/14/2020 pantoprazole EC (PROTONIX) 40 MG tablet Take 1 tablet by mouth once daily 90 tablet 04/05/2020 07/12/2020 predniSONE (DELTASONE) 5 MG tablet Take 1 tablet by mouth 2 times daily 180 tablet 10/23/2019 07/12/2020 tiZANidine (ZANAFLEX) 4 MG tablet Take 1 tablet by mouth at bedtime 30 tablet 1 04/18/2019 01/17/2021 documented as of this encounter Progress Notes * Jody Sahu RN - 06/29/2020 11:40 AM CST JOSE Allred Deng [id number] 06/29/2020 Diagnosis: Rheumatoid arthritis without rheumatoid factor, multiple sites [M06.09]. Pt denies symptoms of infection or antibiotic use, no open wounds, or recent surgery, or plans for surgery in the next couple of weeks. Pt is aware that we use the 0-10 pain scale to assess discomfort. 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 front office spec pt signs consent for treatment for this infusion. BP 130/74 Pulse 79 Temp 97.9 ??F Resp 18 Wt 105.7 kg (233 lb) BMI 33.43 kg/m2 @ MEDICATIONS FOR CURRENT ENCOUNTER: ?? CONTINUOUS MEDICATIONS: ? inFLIXimab (REMICADE) 600 mg in 0.9% NaCl IV 250 mL infusion, Intravenous, Continuous ?? Number of 24 gauge 3/4 inch placed in Right antecubital ?? 1 attempt(s). Patient monitored throughout procedure. Tolerated well? Yes Next treatment? 4 weeks Jody Sahu RN TER MOLDER documented in this encounter Plan of Treatment Upcoming Encounters Date Type Department Care Team (Late st Contact Info) Description 06/03/2024 1:00 PM COUNTER MOLDER Appointment [facility] - Rheumatology [address] [place] [address] 06/03/2024 2:00 PM COUNTER MOLDER Office Visit [facility] - Rheumatology [address] [place] [address] Gloria Smith MD [address] [place] [phone] documented as of this encounter Visit Diagnoses Diagnosis 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)- Primary documented in this encounter Administered Medications Inactive Administered Medications - up to 3 most recent administrations Medication Order MAR Action Action Date Dose Rate Site inFLIXimab (REMICADE) 600 mg in 0.9% NaCl IV 250 mL infusion 600 mg, at 10-250 mL/hr, Intravenous, CONTINUOUS, Starting on Sun06/29/20 at 1130, Until Sun06/29/20 at 1329, Infuse over a minimum of 2 hours. Start infusion rate at 10 ml/hr and slowly increase infusion rate by doubling rate every 15 minutes. After 1 hour, increase rate to 150 ml/hr for 30 minutes, then increase rate to 250 ml/hr until infusion complete, unless physician orders a different rate. Compounding NOTE: remove equal volume of infliximab out of NS 250ml IV bag for TOTAL VOLUME of 250ml. Recon each vial with 10ml SWFI or NS & total dose should be further diluted to a final concentration of 0.4-4mg/ml. Refrigerate. Use with in-line filter. $ New Bag/Syringe 06/29/2020 11:32 AM COUNTER MOLDER 600 mg 135 mL/hr documented in this encounter Care Teams Medical Review Coordinator Relationship Specialty Start Date End Date Tomas Hyman MD [address] [place] [address] [place], [place] [id number] PCP - General Family Medicine 09/05/18 Isidro Heredia MD Rheumatology 02/09/11 documented as of this encounter
--- OUTSIDE RECORDS SUMMARY | 2024-05-03 04:05 | XMS_ITS | Encounter Summary ---
Author Organization [facility] Address [address] [place] [address] Care Team Providers Care Land Acquisition Analyst Name Role Phone Isidro Heredia MD Unavailable [phone] Tomas Hyman MD Primary Care Provider [phone] Reason for Visit * Reason Onset Date Comments MEDICATION REFILL 01/17/2021 Encounter Details Date Type Department Care Team (Late st Contact Info) Description 01/17/2021 Refill [facility] - Rheumatology [address] [place] [address] Gloria Smith MD [address] [place] [address] MEDICATION REFILL Social History Tobacco Use [...] Telephone Encounter - Arian Fernando RN - 01/19/2021 8:[address] Smith it is okay to continue refilling gabapentin, aspirin, tizanidine and pantoprazole. * Telephone Encounter - Arian Fernando RN - 01/18/2021 9:52 AM CDT NON-BIOLOGIC REFILL REQUEST Last OV: 10/19/2020 Next Appointment: 02/08/2021 Last Fill: Methotrexate- 10/19/2020 Gabapentin- 11/01/2020 Tizanidine- 04/18/2019 Prednisone- 11/01/2020 Aspirin- 04/05/2020 Celebrex- 06/29/2020 Pantoprazole- 11/01/2020 Recent Labs Component Name 10/19/20 1540 08/24/20 1233 06/29/20 1410 WBC 9.5 6.3 8.6 HGB 13.7 12.1 12.3 PLTCOUNT 179 156 180 MCV 90.7 95.3 94.8 Recent Labs Component Name 10/19/20 1540 08/24/20 1233 06/29/20 1410 CREATININE 1.18 1.14 1.18 BUN 22 16 20 SODIUM 137 139 140 POTASSIUM 4.0 4.0 4.3 Recent Labs Component Name 10/19/20 1540 08/24/20 1233 06/29/20 1410 EGFR >60 >60 >60 EGFRAFR >60 >60 >60 Recent Labs Component Name 10/19/20 1540 08/24/20 1233 06/29/20 1410 AST 18 21 21 ALT 16 15 19 ALKPHOS 70 65 61 TBIL 0.6 0.5 0.5 Last ESR: Recent Labs Component Name 06/29/20 1410 02/06/20 1332 03/06/19 1134 SEDRATE 13 12 6 Last 3 CRP: Recent Labs Component Name 06/29/20 1410 02/06/20 1332 03/06/19 1134 CRP <0.20 0.21 0.31 * Telephone Encounter - Dixie Beard LPN - 01/18/2021 9:06 AM CDT LRF : 11/01 Next OV : 02/08 documented in this encounter Plan of Treatment Upcoming Encounters Date Type Department Care Team (Late st Contact Info) Description 06/03/2024 1:00 PM RETAIL MERCHANDISER TECHNICIAN Appointment [facility] - Rheumatology [address] [place] [address] 06/03/2024 2:00 PM RETAIL MERCHANDISER TECHNICIAN Office Visit [facility] - Rheumatology [address] [place] [address] Gloria Smith MD [address] [place] [phone] documented as of this encounter Visit Diagnoses Diagnosis 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) documented in this encounter Care Teams Land Acquisition Analyst Relationship Specialty Start Date End Date Tomas Hyman MD [address] [facility] [address] [place] [address] PCP - General Family Medicine 09/05/18 Isidro Heredia MD Rheumatology 02/09/11 documented as of this encounter
--- OUTSIDE RECORDS SUMMARY | 2024-05-03 04:05 | XMS_ITS | Encounter Summary ---
Author Organization [facility] Address [address] [facility] [place] [address] Care Team Providers Care Estate Tax Examiner Name Role Phone Isidro Heredia MD Unavailable [phone] Tomas Hyman MD Primary Care Provider [phone] Reason for Referral * OP/Amb RFL Auth (Routine) - Closed Specialty Diagnoses / Procedures Referred By Contsarahi t Referred To Contact Diagnoses Right shoulder pain, unspecified chronicity Procedures HI DRAIN/INJECT LARGE JOINT/BURSA Gloria Smith MD [address] [place] [address] Referral ID Status Reason Start Date Expiration Date Visits Re quested Visits Authorized [id number] Closed 08/24/2020 08/24/2021 1 1 Reason for Visit * Reason Comments Follow-up Encounter Details Date Type Department Care Team (Late st Contact Info) Description 08/24/2020 11:40 AM CDT Office Visit [facility] - Rheumatology [address] [place] [address] Gloria Smith MD [facility] [place] [address] Rheumatoid arthritis of multiple sites [...] have Coronavirus / COVID-19? No / Unsure 08/24/2020 12:45 PM CDT documented as of this encounter Last Filed Vital Signs Vital Sign Reading Time Taken Comments Blood Pressure 142/77 08/24/2020 11:16 AM CDT Pulse 85 08/24/2020 11:16 AM CDT Temperature 37 ??C (98.6 ??F) 08/24/2020 11:16 AM CDT Respiratory Rate - - Oxygen Saturation - - Inhaled Oxygen Concentration - - Weight 108.9 kg (240 lb) 08/24/2020 11:16 AM CDT Height 177.8 cm (5' 10 ) 08/24/2020 11:16 AM CDT Body Mass Index 34.44 08/24/2020 11:16 AM CDT documented in this encounter Progress Notes * Gloria Smith MD - 08/24/2020 11:46 AM CDT CHIEF COMPLAINTS: Follow-up on rheumatoid arthritis HISTORY OF PRESENT ILLNESS: Chalino Deng is a 59 year old white male with past medical history of seropositive rheumatoid arthritis, diverticulitis, sepsis on Actemra, recurrent UTIs, recu rrent prostatitis, chronic back pain and lumbar stenosis and spondylosis status post epidural injections, history of shingles, who returns for follow-up on rheumatoid arthritis. (Raquel 1:160, ccp 22+ in 2009, rf 10.2) Last seen on June 29, 2020. Methotrexate was switched to azathioprine 50 mg. He has noticed much difference. Has good days and bad days, but has chronic pain, swelling, stiffness in hands, shoulders,and other joints. Having increasing right shoulder pain lately with limited range of motion due to pain. Home exercise and heat pad helps. Denies fever, chills, recent infection. He is concerned about increasing dose of Remicade because of recurrent urinary tract infection and prostatitis requiringhospitalization in the past. Medication history: AZA 06/2020-present Remicade 10/2004-08/02/2005 lost efficacy. Resumed in February, - present, recurrent prostatitis mtx 2004-06/2020, inadequate Orencia 09/13/2005-11/22/2005 allergic reaction Rituxan 12/06/2005-05/01/2006, inadequate response, Humira 08/13/2006, effective. No details. actemra ?- 2018, urosepsis. History of diverticulitis RA: Patient was diagnosed of rheumatoid arthritis [...] except as per HPI. PHYSICAL EXAM: BP 142/77 Pulse 85 Temp 98.6 ??F (37 ??C) Ht 1.778 m (5' 10 ) Wt 108.9 kg (240 lb) BMI 34.44 kg/m2 General: in no acute distress. HEENT: anicteric sclera, no conjunctival injection, PERRL, no oral ulcers. Neck: supple, nontender, no lymphadenopathy Chest: nontender. Abdomen: soft, nontender Extremities: no peripheral swelling, clubbing or cyanosis Skin: No rash Neurologic: Moves all extremities MSK: Tenderness and fullness in MCP, PIP joints bilaterally, wrists. Tenderness in both shoulders, worse on the right shoulder. Tenderness in ankles. LABORATORY: Recent Labs Component Name 06/29/20 1410 05/04/20 1452 02/06/20 1332 WBC 8.6 8.7 9.4 RBC 4.04 4.27 4.28 HGB 12.3 13.0 12.8 HCT 38.3 40.8 40.7 MCV 94.8 95.6 95.1 MCHC 32.1 31.9 31.4 PLTCOUNT 180 188 170 MONOCYTPCT 7.7 7.6 7.7 EOSINPCT 6.2* 5.2 11.5* LYMPHABS 3.55 3.62 3.14 MONOCYTABS 0.66 0.66 0.72 BASOABS 0.08 0.07 0.13* IMMGRANSABS 0.02 0.02 0.02 Recent Labs Component Name 06/29/20 1410 05/04/20 1452 02/06/20 1332 SODIUM 140 137 139 POTASSIUM 4.3 4.3 3.8 CHLORIDE 105 100 103 CO2 23 27 27 BUN 20 13 18 CREATININE 1.18 1.13 1.22 GLUCOSE 103 108* 106* CALCIUM 9.1 9.4 9.0 ALBUMIN 4.1 4.3 4.2 ALKPHOS 61 63 68 ALT 19 25 22 AST 21 25 25 TBIL 0.5 0.6 0.6 TPROT 6.8 7.0 6.8 EGFR >60 >60 >60 Recent Labs Component Name 06/29/20 1410 02/06/20 1332 03/06/19 1134 CRP <0.20 0.21 0.31 Recent Labs Component Name 06/29/20 1410 02/06/20 1332 03/06/19 1134 SEDRATE 13 12 6 IMAGINGS: 07/03/19 MRI L spine: L4-L5 moderate facet arthropathy, central canal and right neural foraminal stenosis. Lessor spondylosis other levels. PROCEDURE: Procedure Name: Right shoulder steroid injection Indication: Pain Side: Right Approach: Posterior Date of procedure: 08/24/2020 Informed Consent and Counseling: The procedure, risks, [...] was explained. ASSESSMENT & PLAN: Current medication: Azathioprine 50 mg, infliximab 600 mg every 4 weeks, folic acid 1 mg daily, prednisone 5 mg bid, Celebrex 200 mg b.i.d. 59-year-old white male with: Seropositive rheumatoid arthritis Osteoporosis Chronic back pain and lumbar radiculopathy High-risk medication -- Monitoring for toxicity of MTX with lab tests: CBC and CMP every 3 months to monitor bone marrowfunction, liver function and kidney function. (Raquel 1:160, ccp 22+ in 2009, rf 10.2, esr-, crp) Follow-up for inflammatory arthritis. 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 Complains of increasing right shoulder pain. Has not noticed much difference between methotrexate and azathioprine. Rheumatoid arthritis - continue azathioprine. Will consider increase the does. - start sulfasalazine 500 mg b.i.d.. Discussed potential side effects including allergic reaction, rash, GI side effects. He is going to do some traveling and will start sulfasalazine in mid August. - will likely switch Remicade to Simponi at his next visit. He is concerned about increasing Remicade dosage due to recurrent urinary tract infection requiring hospitalization in the past. - continue Celebrex, prednisone, infliximab. - repeat CBC, CMP, QuantiFERON gold TB - return to clinic in 2 months Right shoulder pain - status post steroid injection - continue home exercise and heat pad - x-ray of bilateral shoulders - ultrasound of bilateral shoulders ordered Chronic neck and back pain - follows with Pain Management and received epidural injections. Off regular Percocet since July,. Osteoporosis - Will repeat DEXA bone density scan - took alendronate from [id number]. documented in this encounter Miscellaneous Notes * Addendum Note - Chandrakant Madrid - 08/24/2020 1:50 PM CDTAddended by: CHANDRAKANT MADRID on: 08/24/2020 01:50 PM Modules accepted: Orders documented in this encounter Plan of Treatment Upcoming Encounters Date Type Department Care Team (Late st Contact Info) Description 06/03/2024 1:00 PM TILTING HEAD BAND SAWYER Appointment [facility] - Rheumatology [address] [place] [address] 06/03/2024 2:00 PM TILTING HEAD BAND SAWYER Office Visit [facility] - Rheumatology [address] [place] [address] Gloria Smith MD [address] [place] [phone] documented as of this encounter Procedures Procedure Name Priority Date/Time Associated Diagnosis Comments QUANTIFERON TB-GOLD Routine 08/24/2020 1 2:33 PM CDT 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) CBC W AUTO DIFFERENTIAL Routine 08/24/2020 12:33 PM CDT 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) COMPREHENSIVE METABOLIC PANEL Routine 08/24/2020 12:33 PM CDT 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) documented in this encounter Results * QUANTIFERON TB-GOLD (08/24/2020 12:33 PM CDT) QuantiFERON Incubation Incubation performed. [facility] INSURANCE BILL QuantiFERON Criteria [facility] INSURANCE BILL Comment: The QuantiFERON-TB Gold Plus result is determined by subtracting the Nil value from either TB antigen (Ag) tube. The mitogen tube serves as a control for the test. QuantiFERON TB1 Ag Value 0.00 IU/mL [facility] INSURANCE BILL QuantiFERON TB2 Ag Value 0.00 IU/mL [facility] INSURANCE BILL QuantiFERON Nil Value 0.02 IU/mL [facility] INSURANCE BILL QuantiFERON Mitogen Value >10.00 IU/mL [facility] INSURANCE BILL QuantiFERON-TB Gold Plus Negative Negative [facility] INSURANCE BILL Comment:Chemiluminescence im munoassay methodology Blood BLOOD SPECIMEN / Unknown 08/24/2020 12:33 PM CDT 08/24/2020 Narrative Resulting Agency Comment Lab [facility] performed at: [facility] [address] [facility] [phone] Gloria Smith MD LAB - CHEMISTRY MARII ARAUJO [facility] INSURANCE BILL [address] [place] [address] * (ABNORMAL) COMPREHENSIVE METABOLIC PANEL (08/24/2020 12:33 PM CDT) Glucose 116(H) 70 - 105 mg/dL [facility] INSURANCE BILL BUN 16 8.4 - 25.7 mg/dL [facility] INSURANCE BILL Creatinine 1.14 0.72 - 1.25 mg/dL [facility] INSURANCE BILL eGFR by MDRD >60 >60 mL/min/1.7 3m2 [facility] INSURANCE BILL eGFR by MDRD >60 >60 mL/min/1.7 3m2 [facility] INSURANCE BILL Sodium 139 136 - 145 mmol/L [facility] INSURANCE BILL Potassium 4.0 3.5 - 5.1 mmol/L [facility] INSURANCE BILL Chloride 106 98 - 107 mmol/L [facility] INSURANCE BILL CO2 24 23 - 31 mmol/L [facility] INSURANCE BILL Calcium 8.6 8.4 - 10.4 mg/dL [facility] INSURANCE BILL Protein Total 6.6 6.4 - 8.3 gm/dL [facility] INSURANCE BILL Albumin 4.0 3.5 - 5.2 gm/dL [facility] INSURANCE BILL Bilirubin Total 0.5 0.2 - 1.2 mg/dL [facility] INSURANCE BILL Comment:Attention clinician: Reference Range change. Alkaline Phosphatase 65 40 - 150 U/L [facility] INSURANCE BILL Comment:Attention clinician: Reference Range change. AST 21 5 - 34 U/L [facility] INSURANCE BILL ALT 15 0 - 61 U/L [facility] INSURANCE BILL Blood BLOOD SPECIMEN / Unknown 08/24/2020 12:33 PM CDT 08/24/2020 Narrative Resulting Agency Comment Lab Testing performed at: [facility] [id number] [place], [place] [address]cierra Ibarra ?? [place] [phone] Gloria Smith MD LAB - CHEMISTRY MARII ARAUJO [facility] INSURANCE BILL [address] [place] [address] * (ABNORMAL) CBC WITH DIFFERENTIAL (08/24/2020 12:33 PM CDT) WBC 6.3 4.4 - 10.7 x10E9/L [facility] INSURANCE BILL RBC 4.02 3.80 - 5.40 x10E12/L [facility] INSURANCE BILL Hemoglobin 12.1 12.0 - 17.6 gm/dL [facility] INSURANCE BILL Hematocrit 38.3 35.2 - 51.7 % [facility] INSURANCE BILL MCV 95.3 80.7 - 98.3 fl [facility] INSURANCE BILL MCH 30.1 26.7 - 34.0 pg [facility] INSURANCE BILL MCHC 31.6 30.8 - 35.9 gm/dL [facility] INSURANCE BILL RDW 13.6 12.1 - 14.9 % [facility] INSURANCE BILL Platelet Count 156 153 - 416 x10E9/L [facility] INSURANCE BILL Comment:MPV FL BLOOD ([facility]) 1 1.7 fl 9.4-12.9 Granulocytes % 42.0(L) 44.0 - 73.0 % [facility] INSURANCE BILL Lymphocytes % 39.7 20.0 - 43.0 % [facility] INSURANCE BILL Monocytes % 9.3 5.0 - 13.0 % [facility] INSURANCE BILL Eosinophils % 7.5(H) 0.0 - 6.0 % [facility] INSURANCE BILL Basophils % 1.3 0.0 - 2.0 % [facility] INSURANCE BILL Granulocytes Absolute 2.63 2.01 - 7.14 x10E9/L [facility] INSURANCE BILL Lymphocytes Absolute 2.48 1.07 - 3.94 x10E9/L [facility] INSURANCE BILL Monocytes Absolute 0.58 0.26 - 1.07 x10E9/L [facility] INSURANCE BILL Eosinophils Absolute 0.47 0 - 0.47 x10E9/L [facility] INSURANCE BILL Basophils Absolute 0.08 0 - 0.08 x10E9/L [facility] INSURANCE BILL Immature Granulocytes 0.2 0 - 1 % [facility] INSURANCE BILL Immature Granulocytes Absolute 0.01 0.00 - 0.06 x10E9/L [facility] INSURANCE BILL nRBC 0 /100 WBC [facility] INSURANCE BILL Blood BLOOD SPECIMEN / Unknown 08/24/2020 12:33 PM CDT 08/24/2020 Narrative Resulting Agency Comment Lab Testing performed at: [facility] [address] [facility] ?? [place] [phone] Gloria Smith MD LAB - HEMATOLOGY ORD ERABLES [facility] INSURANCE BILL [address] [place] [address] documented in this encounter Visit Diagnoses Diagnosis 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)- Primary Right shoulder pain, unspecified chronicity documented in this encounter Administered Medications Inactive Administered Medications - up to 3 most recent administrations Medication Order MAR Action Action Date Dose Rate Site lidocaine PF (Xylocaine Mpf) 1 % injection Intra-articular, ONCE, 1 dose, On Sun08/24/20 at 1415 $ Given 08/24/2020 1:46 PM CDT 1 mL Right Shoulder methylPREDNISolone acetate (DEPO-Medrol) injection 40 mg 40 mg, Intra-articular, ONCE, 1 dose, On Sun08/24/20 at 1415 $ Given 08/24/2020 1:48 PM CDT 40 mg Ri ght Shoulder documented in this encounter Care Teams Estate Tax Examiner Relationship Specialty Start Date End Date Tomas Hyman MD [address] [facility] [address] [place] [address] PCP - General Family Medicine 09/05/18 Isidro Heredia MD Rheumatology 02/09/11 documented as of this encounter
--- OUTSIDE RECORDS SUMMARY | 2024-05-03 04:05 | XMS_ITS | Encounter Summary ---
Author Organization [facility] Address [address] [facility] [place] [address] Care Team Providers Care Steep Tender Name Role Phone Isidro Heredia MD Unavailable [phone] Tomas Hyman MD Primary Care Provider [phone] Reason for Visit * Treatment (Routine) - Closed Specialty Diagnoses / Procedures Referred By Lawrence shah Referred To Contact Infusion Therapy Nurse Diagnoses Rheumatoid arthritis without rheumatoid factor, multiple sites (HCC) Procedures [place] GOLIMUMAB FOR IV USE 1MG Gloria Smith MD [address] [place] [address] [address] Referral ID Status Reason Start Date Expiration Date Visits Re quested Visits Authorized [id number] Closed 10/19/2020 04/29/2021 1 8 Encounter Details Date Type Department Care Team (Late st Contact Info) Description 11/16/2020 11:50 AM CDT - 11/16/2020 11:59 PM CDT Hospital Encounter [facility] Medical [facility] - Rheumatology [address] [place] [address] Gloria Smith MD [address] [place] [address] Discharge Disposition: Home or Self [...] Sign Reading Time Taken Comments Blood Pressure 122/74 11/16/2020 12:03 PM CDT Pulse 76 11/16/2020 12:03 PM CDT Temperature 37.2 ??C (98.9 ??F) 11/16/2020 12:03 PM C DT Respiratory Rate 18 11/16/2020 12:03 PM CDT Oxygen Saturation - - Inhaled Oxygen Concentration - - Weight 111.6 kg (246 lb) 11/16/2020 12:03 PM CDT Height - - Body Mass Index 35.3 10/19/2020 2:36 PM CDT documented in this encounter Discharge Instructions * Discharge Instructions* Jody Sahu RN - 11/16/2020 12:31 PM CDT [place] Rheumatology Post Infusion instructions You have received [...] rash or breathing problems please call your [facility] Rheumatology physician for further instructions. While most problems that occur around the time of an infusion are very mild and not dangerous, they should not be ignored. Sunday through Sunday 9-5 call the office at [phone] After hours or on the weekend call the exchange at [phone] If you have had lab work done [...] you and are glad you have chosen [facility] as your provider. Jody Sahu RN documented in this encounter Medications at Time of Discharge Medication Sig Dispensed Refills Start Date End Date atorvastatin (LIPITOR) 40 MG tablet Take 1 (one) tablet by mouth at bedtime [id number] ysorb, PF, 0.5-1-0.5 % SOLN Instill 1 [...] Progress Notes * Jody Sahu, RN - 11/16/2020 12:14 PM CDT JOSE Deng [id number] 11/16/2020 Diagnosis: Rheumatoid arthritis without rheumatoid factor, multiple sites [M06.09]. Pt denies symptoms of infection or antibiotic use, no open wounds, or recent surgery, or plans for surgery in the next couple of weeks. Pt is aware that we use the 0-10 pain scale to assess discomfort. 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 credit front office developer pt signs consent for treatment for this infusion. BP 122/74 Pulse 76 Temp 98.9 ??F Resp 18 Wt 111.6 kg (246 lb) BMI 35.3 kg/m2 @ MEDICATIONS FOR CURRENT ENCOUNTER: ?? SCHEDULED MEDICATIONS: ?? golimumab (Simponi Aria) 200 mg in 0.9% NaCl IV, Intravenous, Once ?? Number of 24 gauge 3/4 inch placed in Left antecubital ?? 1 attempt(s). Patient monitored throughout procedure. Tolerated well? Yes Next treatment? 4 weeks This is the patient's first Simponi infusion. Pt able to complete infusion without signs or symptoms of hypersensitivity or reaction. Jody Sahu RN documented in this encounter Plan of Treatment Upcoming Encounters Date Type Department Care Team (Late st Contact Info) Description 06/03/2024 1:00 PM EXTERNAL AUDITOR Appointment [facility] - Rheumatology [address] [place] [address] 06/03/2024 2:00 PM EXTERNAL AUDITOR Office Visit [facility] - Rheumatology [address] [place] [address] Gloria Smith MD [address] [place] [phone] documented as of this encounter Visit Diagnoses Diagnosis 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)- Primary documented in this encounter Administered Medications Inactive Administered Medications - up to 3 most recent administrations Medication Order MAR Action Action Date Dose Rate Site golimumab (Simponi Aria) 200 mg in 0.9% NaCl IV 200 mg, at 200 mL/hr, Administer over 30 Minutes, Intravenous, ONCE, 1 dose, On Sun11/16/20 at 1230, Use in-line low protein binding 0.22 micrometer filter. $ New Bag/Syringe 11/16/2020 12:13 PM CDT 200 mg 200 mL/hr documented in this encounter Care Teams Steep Tender Relationship Specialty Start Date End Date Tomas Hyman MD [address] [address] [address] [place] [address] PCP - General Family Medicine 09/05/18 Isidro Heredia MD Rheumatology 02/09/11 documented as of this encounter
--- OUTSIDE RECORDS SUMMARY | 2024-05-03 04:05 | XMS_ITS | Encounter Summary ---
Author Organization [facility] Address [address] [place] [address] Care Team Providers Care Compliance Review Officer Name Role Phone Isidro Heredia MD Unavailable [phone] Tomas Hyman MD Primary Care Provider [phone] Encounter Details Date Type Department Care Team (Latest Contact Info) Description 05/04/2020 Travel Social History Tobacco Use Types Packs/Day [...] have Coronavirus / COVID-19? No / Unsure 05/04/2020 2:08 PM CLASSROOM TEACHER documented as of this encounter Plan of Treatment Upcoming Encounters Date Type Department Care Team (Late st Contact Info) Description 06/03/2024 1:00 PM CLASSROOM TEACHER Appointment [facility] - Rheumatology [address] [place] [address] 06/03/2024 2:00 PM CLASSROOM TEACHER Office Visit [facility] - Rheumatology [address] [place] [address] Gloria Smith MD [address] [place] [phone] documented as of this encounter Visit Diagnoses Not on filedocumented in this encounter Care Teams Compliance Review Officer Relationship Specialty Start Date End Date Tomas Hyman MD [address] [facility] [address] [place] [address] PCP - General Family Medicine 09/05/18 Isidro Heredia MD Rheumatology 02/09/11 documented as of this encounter
--- OUTSIDE RECORDS SUMMARY | 2024-05-03 04:05 | XMS_ITS | Encounter Summary ---
Author Organization [facility] Address [address] [place] [address] Care Team Providers Care Pipe Coremaker Name Role Phone Isidro Heredia MD Unavailable [phone] Tomas Hyman MD Primary Care Provider [phone] Encounter Details Date Type Department Care Team (Latest Contact Info) Description 02/06/2020 Travel Social History Tobacco Use Types Packs/Day [...] have Coronavirus / COVID-19? No / Unsure 02/06/2020 12:12 PM CDT documented as of this encounter Plan of Treatment Upcoming Encounters Date Type Department Care Team (Late st Contact Info) Description 06/03/2024 1:00 PM STRIKER OFF Appointment [facility] - Rheumatology [address] [place] [address] 06/03/2024 2:00 PM STRIKER OFF Office Visit [facility] - Rheumatology [address] [place] [address] Gloria Smith MD [address] [place] [phone] documented as of this encounter Visit Diagnoses Not on filedocumented in this encounter Care Teams Pipe Coremaker Relationship Specialty Start Date End Date Tomas Hyman MD [address] [facility] [address] [place] [address] PCP - General Family Medicine 09/05/18 Isidro Heredia MD Rheumatology 02/09/11 documented as of this encounter
--- OUTSIDE RECORDS SUMMARY | 2024-05-03 04:05 | XMS_ITS | Encounter Summary ---
Author Organization [facility] Address [address] [place] [address] Care Team Providers Care Picc Nurse Name Role Phone Isidro Heredia MD Unavailable [phone] Tomas Hyman MD Primary Care Provider [phone] Reason for Visit * Treatment (Routine) - Closed Specialty Diagnoses / Procedures Referred By Lawrence shah Referred To Contact Infusion Therapy Nurse Diagnoses Rheumatoid arthritis without rheumatoid factor, multiple sites (HCC) Procedures [place] GOLIMUMAB FOR IV USE 1MG Gloria Smith MD [address] [place] [address] [address] Referral ID Status Reason Start Date Expiration Date Visits Re quested Visits Authorized [id number] Closed 10/19/2020 04/29/2021 1 8 Encounter Details Date Type Department Care Team (Late st Contact Info) Description 02/08/2021 1:51 PM CDT - 02/08/2021 11:59 PM CDT Hospital Encounter [facility] Medical [facility] - Rheumatology [address] [place] [address] Gloria Smith MD [address] [place] [address] Discharge Disposition: Home or Self [...] Sign Reading Time Taken Comments Blood Pressure 110/71 02/08/2021 2:01 PM CDT Pulse 71 02/08/2021 2:01 PM CDT Temperature 36.8 ??C (98.2 ??F) 02/08/2021 2:01 PM CD T Respiratory Rate 18 02/08/2021 2:01 PM CDT Oxygen Saturation - - Inhaled Oxygen Concentration - - Weight 99.6 kg (219 lb 9.6 oz) 02/08/2021 2:01 P M CDT Height - - Body Mass Index 31.51 10/19/2020 2:36 PM CDT documented in this encounter Discharge Instructions * Discharge Instructions* Jody Sahu RN - 02/08/2021 2:21 PM CDT [place] [facility] [place] Infusion instructions [...] rash or breathing problems please call your [facility] Rheumatology physician for further instructions. While most problems that occur around the time of an infusion are very mild and not dangerous, they should not be ignored. Sunday through Sunday 9-5 call the office at [phone] After hours or on the weekend call the exchange at [phone] If you have had lab work done [...] you and are glad you have chosen [facility] as your provider. Jody Sahu RN documented in this encounter Medications at Time of Discharge Medication Sig Dispensed Refills Start Date End Date atorvastatin (LIPITOR) 40 MG tablet Take 1 (one) tablet by mouth at bedtime pwyebwhpssb-ernh-dg lysorb, PF, 0.5-1-0.5 % SOLN Instill 1 [...] Progress Notes * Jody Sahu RN - 02/08/2021 2:19 PM CDT JOSE Deng [id number] 02/08/2021 Diagnosis: Rheumatoid arthritis without rheumatoid factor, multiple sites [M06.09]. Pt denies symptoms of infection or antibiotic use, no open wounds, or recent surgery, or plans for surgery in the next couple of weeks. Pt is aware that we use the 0-10 pain scale to assess discomfort. 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 front end alignment specialist pt signs consent for treatment for this infusion. BP 110/71 Pulse 71 Temp 98.2 ??F Resp 18 Wt 99.6 kg (219 lb 9.6 oz) BMI 31.51 kg/m2 @ MEDICATIONS FOR CURRENT ENCOUNTER: ?? SCHEDULED MEDICATIONS: ?? golimumab (Simponi Aria) 200 mg in 0.9% NaCl IV 100 mL infusion, Intravenous, Once ?? Number of 24 gauge 3/4 inch placed in Right antecubital ?? 1 attempt(s). Patient monitored throughout procedure. Tolerated well? Yes Next treatment? 8 weeks Jody Sahu RN documented in this encounter Plan of Treatment Upcoming Encounters Date Type Department Care Team (Late st Contact Info) Description 06/03/2024 1:00 PM NEUROSCIENCE DIRECTOR NA Appointment [facility] - Rheumatology [address] [place] [address] 06/03/2024 2:00 PM NEUROSCIENCE DIRECTOR NA Office Visit [facility] - Rheumatology [address] [place] [address] Gloria Smith MD [address] [place] [address] documented as of this encounter Visit [...] 30 Minutes, Intravenous, ONCE, 1 dose, On Sun02/08/21 at 1430, Use in-line low protein binding 0.22 micrometer filter. $ New Bag/Syringe 02/08/2021 2:15 PM CDT 200 mg 200 mL/hr documented in this encounter Care Teams Picc Nurse Relationship Specialty Start Date End Date Tomas Hyman MD [address] [facility] [address] [place] [address] PCP - General Family Medicine 09/05/18 Isidro Heredia MD Rheumatology 02/09/11 documented as of this encounter
--- OUTSIDE RECORDS SUMMARY | 2024-05-03 04:05 | XMS_ITS | Encounter Summary ---
Author Organization [facility] Address [address] [facility] [place] [address] Care Team Providers Care Memorial Designer Name Role Phone Isidro Heredia MD Unavailable [phone] Tomas Hyman MD Primary Care Provider [phone] Reason for Visit * Treatment (Routine) - Closed Specialty Diagnoses / Procedures Referred By Contact Referred To Contact Infusion Therapy Nurse / Rheumatology Diagnoses Rheumatoid arthritis without rheumatoid factor, multiple sites (HCC) Procedures [place] INFLIXIMAB INJECTION Gloria Smith MD [address] [place] [address] [facility] [address] [address] Referral ID Status Reason Start Date Expiration Date Visits Re quested Visits Authorized [id number] Closed 05/04/2020 04/29/2021 12 12 Encounter Details Date Type Department Care Team (Late st Contact Info) Description 09/21/2020 12:46 PM CDT - 09/21/2020 11:59 PM CDT Hospital Encounter [facility] Medical [facility] - Rheumatology [address] [place] [address] Gloria Smith MD [facility] [place] [address] Discharge Disposition: Home or Self [...] Sign Reading Time Taken Comments Blood Pressure 142/73 09/21/2020 1:13 PM CDT Pulse 80 09/21/2020 1:13 PM CDT Temperature 36.8 ??C (98.2 ??F) 09/21/2020 1:13 PM CD T Respiratory Rate 18 09/21/2020 1:13 PM CDT Oxygen Saturation - - Inhaled Oxygen Concentration - - Weight 108.9 kg (240 lb) 09/21/2020 1:13 PM CDT Height - - Body Mass Index 34.44 08/24/2020 11:16 AM CDT documented in this encounter Discharge Instructions * Discharge Instructions* Jody Sahu RN - 09/21/2020 1:37 PM CDT [place] [facility] [place] Infusion instructions You have received [...] rash or breathing problems please call your [facility] Rheumatology physician for further instructions. While most problems that occur around the time of an infusion are very mild and not dangerous, they should not be ignored. Sunday through Sunday 9-5 call the office at [phone] After hours or on the weekend call the exchange at [phone] If you have had lab work done [...] you and are glad you have chosen [facility] as your provider. Jody Sahu RN documented in this encounter Medications at Time of Discharge Medication Sig Dispensed Refills Start Date End Date atorvastatin (LIPITOR) 40 MG tablet Take 1 (one) tablet by mouth at bedtime koqruqwjqjo-cfpz-hll ysorb, PF, 0.5-1-0.5 % SOLN Instill 1 [...] once daily 90 tablet 3 04/05/2020 01/17/2021 azaTHIOprine (IMURAN) 50 MG tablet Take 1 (one) tablet by mouth once daily 90 tablet 07/27/2020 10/19/2020 buPROPion (WELLBUTRIN) 100 MG tablet Take 100 mg by mouth 2 times daily 10/16/2019 10/15/2020 celecoxib (CELEBREX) 200 MG capsuleIndications:R heumatoid 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) Take 1 (one) capsule by mouth 2 times daily 180 capsule 1 06/29/2020 01/17/2021 gabapentin (NEURONTIN) 300 MG capsule Take 1 (one) capsule by mouth 3 times daily 270 capsule 07/13/2020 10/29/2020 InFLIXimab (REMICADE IV) 600 mg by Intravenous route as directed Every 4 weeks 11/16/2020 pantoprazole EC (PROTONIX) 40 MG tablet Take 1 (one) tablet by mouth once daily 90 tablet 07/13/2020 10/29/2020 predniSONE (DELTASONE) 5 MG tablet Take 1 (one) tablet by mouth 2 times daily 180 tablet 07/13/2020 10/29/2020 sulfaSALAzine (AZULFIDINE) 500 MG tablet Take 1 (one) tablet by mouth 2 times daily 60 tablet 3 08/24/2020 10/19/2020 tiZANidine (ZANAFLEX) 4 MG tablet Take 1 tablet by mouth at bedtime 30 tablet 1 04/18/2019 01/17/2021 documented as of this encounter Progress Notes * Jody Sahu RN - 09/21/2020 1:32 PM CDT JOSE Deng [id number] 09/21/2020 Diagnosis: Rheumatoid arthritis without rheumatoid factor, multiple sites [M06.09]. Pt denies symptoms of infection or antibiotic use, no open wounds, or recent surgery, or plans for surgery in the next couple of weeks. Pt is aware that we use the 0-10 pain scale to assess discomfort. 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 front desk admin pt signs consent for treatment for this infusion. BP 142/73 Pulse 80 Temp 98.2 ??F Resp 18 Wt 108.9 kg (240 lb) BMI 34.44 kg/m2 @ MEDICATIONS FOR CURRENT ENCOUNTER: ?? CONTINUOUS MEDICATIONS: ?? inFLIXimab (Remicade) 600 mg in 0.9% NaCl IV 250 mL infusion, Intravenous, Continuous ?? Number of 24 gauge 3/4 inch placed in Right antecubital ?? 1 attempt(s). Patient monitored throughout procedure. Tolerated well? Yes Next treatment? 4 weeks Jody Sahu RN documented in this encounter Plan of Treatment Upcoming Encounters Date Type Department Care Team (Late st Contact Info) Description 06/03/2024 1:00 PM LIBRARIAN ASSISTANT Appointment [facility] - Rheumatology [address] [place] [id number] 06/03/2024 2:00 PM LIBRARIAN ASSISTANT Office Visit [facility] - Rheumatology [address] [place] [address] Gloria Smith MD [address] [place] [phone] documented as of this encounter Visit Diagnoses Diagnosis 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)- Primary documented in this encounter Administered Medications Inactive Administered Medications - up to 3 most recent administrations Medication Order MAR Action Action Date Dose Rate Site inFLIXimab (Remicade) 600 mg in 0.9% NaCl IV 250 mL infusion 600 mg, at 10-250 mL/hr, Intravenous, CONTINUOUS, Starting on Sun09/21/20 at 1330, Until Sun09/21/20 at 1529, Infuse over a minimum of 2 hours. [...] Use with in-line filter. $ New Bag/Syringe 09/21/2020 1:26 PM CDT 600 mg 135 mL/hr documented in this encounter Care Teams Memorial Designer Relationship Specialty Start Date End Date Tomas Hyman MD [address] [place] [address] PCP - General Family Medicine 09/05/18 Isidro Heredia MD Rheumatology 02/09/11 documented as of this encounter
--- OUTSIDE RECORDS SUMMARY | 2024-05-03 04:05 | XMS_ITS | Encounter Summary ---
Author Organization [facility] Address [address] [facility] [place] [address] Care Team Providers Care Maintenance Mechanic Engine Name Role Phone Isidro Heredia MD Unavailable [phone] Tomas Hyman MD Primary Care Provider [phone] Reason for Visit * Treatment (Routine) - Closed Specialty Diagnoses / Procedures Referred By Contact Referred To Contact Infusion Therapy Nurse / Rheumatology Diagnoses Rheumatoid arthritis without rheumatoid factor, multiple sites (HCC) Procedures [place] INFLIXIMAB INJECTION Gloria Smith MD [address] [place] [address] [facility] [address] [address] Referral ID Status Reason Start Date Expiration Date Visits Re quested Visits Authorized [id number] Closed 05/04/2020 04/29/2021 12 12 Encounter Details Date Type Department Care Team (Late st Contact Info) Description 07/27/2020 11:35 AM CDT - 07/27/2020 11:59 PM CDT Hospital Encounter [facility] Medical [facility] - Rheumatology [address] [place] [address] Gloria Smith MD [facility] [place] [address] Discharge Disposition: Home or Self [...] Sign Reading Time Taken Comments Blood Pressure 131/73 07/27/2020 12:35 PM CDT Pulse 77 07/27/2020 12:35 PM CDT Temperature 36.6 ??C (97.9 ??F) 07/27/2020 12:35 PM C DT Respiratory Rate 18 07/27/2020 12:35 PM CDT Oxygen Saturation - - Inhaled Oxygen Concentration - - Weight 107 kg (236 lb) 07/27/2020 12:35 PM CDT Height - - Body Mass Index 33.86 06/29/2020 12:56 PM HOUSEPERSON documented in this encounter Discharge Instructions * Discharge Instructions* Jody Sahu RN - 07/27/2020 12:48 PM CDT [place] [facility] [place] Infusion instructions You have received [...] rash or breathing problems please call your [facility] Rheumatology physician for further instructions. While most problems that occur around the time of an infusion are very mild and not dangerous, they should not be ignored. Sunday through Sunday 9-5 call the office at [phone] After hours or on the weekend call the exchange at [phone] If you have had lab work done [...] [facility] as your provider. Jody Sahu, RN documented in this encounter Medications at Time of Discharge Medication Sig Dispensed Refills Start Date End Date atorvastatin (LIPITOR) 40 MG tablet Take 1 (one) tablet by mouth at bedtime woodmalixwn-goja-ryn ysorb, PF, 0.5-1-0.5 % SOLN Instill 1 [...] 2 times daily 180 tablet 07/13/2020 10/29/2020 tiZANidine (ZANAFLEX) 4 MG tablet Take 1 tablet by mouth at bedtime 30 tablet 1 04/18/2019 01/17/2021 documented as of this encounter Progress Notes * Jody Sahu RN - 07/27/2020 12:49 PM CDT JOSE Deng [id number] 07/27/2020 Diagnosis: Rheumatoid arthritis without rheumatoid factor, multiple sites [M06.09]. Pt denies symptoms of infection or antibiotic use, no open wounds, or recent surgery, or plans for surgery in the next couple of weeks. Pt is aware that we use the 0-10 pain scale to assess discomfort. 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 front facer pt signs consent for treatment for this infusion. BP 131/73 Pulse 77 Temp 97.9 ??F Resp 18 Wt 107 kg (236 lb) BMI 33.86 kg/m2 @ MEDICATIONS FOR CURRENT ENCOUNTER: ?? CONTINUOUS MEDICATIONS: ? inFLIXimab (Remicade) 600 mg in 0.9% NaCl IV 250 mL infusion, Intravenous, Continuous ?? Number of 24 gauge 3/4 inch placed in Right antecubital ?? 1 attempt(s). Patient monitored throughout procedure. Tolerated well? Yes Next treatment? 4 weeks Jody Sahu RN documented in this encounter Plan of Treatment Upcoming Encounters Date Type Department Care Team (Late st Contact Info) Description 06/03/2024 1:00 PM HOUSEPERSON Appointment [facility] - Rheumatology [address] [place] [address] 06/03/2024 2:00 PM HOUSEPERSON Office Visit [facility] - Rheumatology [address] [place] [address] Gloria Smtih MD [address] [place] [phone] documented as of this encounter Visit [...] at 10-250 mL/hr, Intravenous, CONTINUOUS, Starting on Sun07/27/20 at 1330, Until Sun07/27/20 at 1529, Infuse over a minimum of [...] Use with in-line filter. $ New Bag/Syringe 07/27/2020 12:40 PM CDT 600 mg 135 mL/hr documented in this encounter Care Teams Maintenance Mechanic Engine Relationship Specialty Start Date End Date Tomas Hyman MD [address] [address] [address] [place] [address] PCP - General Family Medicine 09/05/18 Isidro Heredia MD Rheumatology 02/09/11 documented as of this encounter
--- OUTSIDE RECORDS SUMMARY | 2024-05-03 04:05 | XMS_ITS | Encounter Summary ---
Author Organization [facility] Address [address] [facility] [place] [address] Care Team Providers Care Openstack Developer Name Role Phone Isidro Heredia MD Unavailable [phone] Tomas Hyman MD Primary Care Provider [phone] Reason for Visit * Reason Comments Follow-up Encounter Details Date Type Department Care Team (Late st Contact Info) Description 10/19/2020 2:40 PM CDT Office Visit [facility] - Rheumatology [address] [place] [address] Gloria Smith MD [address] [place] [phone] Rheumatoid arthritis of multiple sites with [...] Sign Reading Time Taken Comments Blood Pressure 137/72 10/19/2020 2:36 PM CDT Pulse 88 10/19/2020 2:36 PM CDT Temperature 37.1 ??C (98.8 ??F) 10/19/2020 2:36 PM CD T Respiratory Rate 18 10/19/2020 2:36 PM CDT Oxygen Saturation - - Inhaled Oxygen Concentration - - Weight 108.9 kg (240 lb) 10/19/2020 2:36 PM CDT Height 177.8 cm (5' 10 ) 10/19/2020 2:36 PM CDT Body Mass Index 34.44 10/19/2020 2:36 PM CDT documented in this encounter Progress Notes * Gloria Smith MD - 10/19/2020 2:53 PM CDT CHIEF COMPLAINTS: Follow-up on rheumatoid [...] in 2009, rf 10.2) Last seen on August 24, 2020. Right shoulder steroid injection worked well. He is having left shoulder pain. He developed abdominal pain, bloating, diarrhea on azathioprine and stop the medicine. WentGI symptoms were better, he started sulfasalazine and took it for 12 days, but had heartburn, diarrhea. Also developed yeast dermatitis in the perianal area. Stop sulfasalazine. GI symptoms are better but he still having heartburn. Methotrexate was stopped in June because of questionable efficacy.However since then Remicade infusion has not been as effective. He feels worse than before. Chronicpain in left shoulder neck, hands. Burning and tenderness all over upper extremities. Morning stiffn ess is prolonged. Feels weak and sick. States that there was ???day and night difference?? with and without methotrexate. Medication history: SSZ 08/2020, GI SEs AZA 06/2020-08/2020, GI [...] except as per HPI. PHYSICAL EXAM: BP 137/72 Pulse 88 Temp 98.8 ??F (37.1 ??C) Resp 18 Ht 1.778 m (5' 10 ) Wt 108.9 kg (240 lb) BMI 34.44 kg/m2 General: in no acute distress. HEENT: anicteric sclera, no conjunctival injection, PERRL, no oral ulcers. Neck: supple, nontender, no lymphadenopathy Chest: nontender. Abdomen: soft, nontender Extremities: no peripheral swelling, clubbing or cyanosis Skin: No rash Neurologic: Moves all extremities MSK: Tenderness and mild fullness in wrists, MCP, PIP joints bilaterally. Puffiness in both hands. Tenderness in the left shoulder. LABORATORY: Recent Labs Component Name 08/24/20 1233 06/29/20 1410 05/04/20 1452 WBC 6.3 8.6 8.7 RBC 4.02 4.04 4.27 HGB 12.1 12.3 13.0 HCT 38.3 38.3 40.8 MCV 95.3 94.8 95.6 MCHC 31.6 32.1 31.9 PLTCOUNT 156 180 188 MONOCYTPCT 9.3 7.7 7.6 EOSINPCT 7.5* 6.2* 5.2 LYMPHABS 2.48 3.55 3.62 MONOCYTABS 0.58 0.66 0.66 BASOABS 0.08 0.08 0.07 IMMGRANSABS 0.01 0.02 0.02 Recent Labs Component Name 08/24/20 1233 06/29/20 1410 05/04/20 1452 SODIUM 139 140 137 POTASSIUM 4.0 4.3 4.3 CHLORIDE 106 105 100 CO2 24 23 27 BUN 16 20 13 CREATININE 1.14 1.18 1.13 GLUCOSE 116* 103 108* CALCIUM 8.6 9.1 9.4 ALBUMIN 4.0 4.1 4.3 ALKPHOS 65 61 63 ALT 15 19 25 AST 21 21 25 TBIL 0.5 0.5 0.6 TPROT 6.6 6.8 7.0 EGFR >60 >60 >60 Recent Labs Component Name 06/29/20 1410 02/06/20 1332 03/06/19 1134 CRP <0.20 0.21 0.31 Recent Labs Component Name 06/29/20 1410 02/06/20 1332 03/06/19 1134 SEDRATE 13 12 6 ASSESSMENT & PLAN: Current medication: infliximab 600 mg every 4 weeks, prednisone 5 mg bid, Celebrex 200 mg b.i.d. 59-year-old white male with: Seropositive rheumatoid arthritis Osteoporosis Chronic back pain and lumbar radiculopathy High-risk medication -- Monitoring for toxicity of MTX with lab tests: CBC and CMP every 3 months to monitor bone marrowfunction, liver function and kidney function. (Raquel 1:160, ccp 22+ in 2009, rf 10.2, esr-, crp) Follow-up for inflammatory arthritis. He realizes that methotrexate did help because infliximab is not as effective as when it was combined with methotrexate before. Did not tolerate azathioprine or sulfasalazine due to GI side effects. Having more pain, burning sensation, and in general feeling poorly now. Rheumatoid arthritis - restart methotrexate 15 mg per week, folic acid 1 mg daily. Discussed about switching p.o. to subcutaneous injection but patient declined. Will be cautious about increasing methotrexate dose because of mild chronic kidney disease. - switch infliximab to Simponi infusion because of loss of efficacy - continue Celebrex and prednisone - repeat CBC and CMP - return to clinic in 3 months Chronic neck and back pain - follows with Pain Management and received epidural injections. Off regular Percocet since July,. Osteoporosis - Will repeat DEXA bone density scan - took alendronate from [id number]. documented in this encounter Plan of Treatment Upcoming Encounters Date Type Department Care Team (Late st Contact Info) Description 06/03/2024 1:00 PM BARREL RIFLER HOOK Appointment [facility] - Rheumatology [address] [place] [address] [phone] 06/03/2024 2:00 PM BARREL RIFLER HOOK Office Visit [facility] - Rheumatology [address] [place] [address] Gloria Smith MD [address] [place] [phone] documented as of this encounter Procedures Procedure Name Priority Date/Time Associated Diagnosis Comments CBC W AUTO DIFFERENTIAL Routine 10/19/2020 3:40 PM CDT 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) COMPREHENSIVE METABOLIC PANEL Routine 10/19/2020 3:40 PM CDT 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) documented in this encounter Results * COMPREHENSIVE METABOLIC PANEL (10/19/2020 3:40 PM CDT) Glucose 100 70 - 105 mg/dL [facility] INSURANCE BILL BUN 22 8.4 - 25.7 mg/dL [facility] INSURANCE BILL Creatinine 1.18 0.72 - 1.25 mg/dL [facility] INSURANCE BILL eGFR by MDRD >60 >60 mL/min/1.7 3m2 [facility] INSURANCE BILL eGFR by MDRD >60 >60 mL/min/1.7 3m2 [facility] INSURANCE BILL Sodium 137 136 - 145 mmol/L [facility] INSURANCE BILL Potassium 4.0 3.5 - 5.1 mmol/L [facility] INSURANCE BILL Chloride 100 98 - 107 mmol/L [facility] INSURANCE BILL CO2 24 23 - 31 mmol/L [facility] INSURANCE BILL Calcium 9.2 8.4 - 10.4 mg/dL [facility] INSURANCE BILL Protein Total 6.6 6.4 - 8.3 gm/dL [facility] INSURANCE BILL Albumin 4.2 3.5 - 5.2 gm/dL [facility] INSURANCE BILL Bilirubin Total 0.6 0.2 - 1.2 mg/dL [facility] INSURANCE BILL Alkaline Phosphatase 70 40 - 150 U/L [facility] INSURANCE BILL AST 18 5 - 34 U/L [facility] INSURANCE BILL ALT 16 0 - 61 U/L [facility] INSURANCE BILL Blood BLOOD SPECIMEN / Unknown 10/19/2020 3:40 PM CDT 10/19/2020 Narrative Resulting Agency Comment Lab Testing performed at: [address] ?? [facility] [phone] Gloria Smith MD LAB - CHEMISTRY CALEBE VAN [facility] INSURANCE BILL [address] [place] [address] * CBC WITH DIFFERENTIAL (10/19/2020 3:40 PM CDT) [facility] WBC 9.5 4.4 - 10.7 x10E9/L [facility] INSURANCE BILL RBC 4.50 3.80 - 5.40 x10E12/L [facility] INSURANCE BILL Hemoglobin 13.7 12.0 - 17.6 gm/dL [facility] INSURANCE BILL Hematocrit 40.8 35.2 - 51.7 % [facility] INSURANCE BILL MCV 90.7 80.7 - 98.3 fl [facility] INSURANCE BILL MCH 30.4 26.7 - 34.0 pg [facility] INSURANCE BILL MCHC 33.6 30.8 - 35.9 gm/dL [facility] INSURANCE BILL RDW 13.1 12.1 - 14.9 % [facility] INSURANCE BILL Platelet Count 179 153 - 416 x10E9/L [facility] INSURANCE BILL Comment:MPV FL BLOOD ([facility]) 1 1.3 fl 9.4-12.9 Granulocytes % 49.7 44.0 - 73.0 % [facility] INSURANCE BILL Lymphocytes % 37.4 20.0 - 43.0 % [facility] INSURANCE BILL Monocytes % 7.9 5.0 - 13.0 % [facility] INSURANCE BILL Eosinophils % 4.0 0.0 - 6.0 % [facility] INSURANCE BILL Basophils % 0.8 0.0 - 2.0 % [facility] INSURANCE BILL Granulocytes Absolute 4.73 2.01 - 7.14 x10E9/L [facility] INSURANCE BILL Lymphocytes Absolute 3.56 1.07 - 3.94 x10E9/L [facility] INSURANCE BILL Monocytes Absolute 0.75 0.26 - 1.07 x10E9/L [facility] INSURANCE BILL Eosinophils Absolute 0.38 0 - 0.47 x10E9/L [facility] INSURANCE BILL Basophils Absolute 0.08 0 - 0.08 x10E9/L [facility] INSURANCE BILL Immature Granulocytes 0.2 0 - 1 % [facility] INSURANCE BILL Immature Granulocytes Absolute 0.02 0.00 - 0.06 x10E9/L [facility] INSURANCE BILL nRBC 0 /100 WBC [facility] INSURANCE BILL Blood BLOOD SPECIMEN / Unknown 10/19/2020 3:40 PM CDT 10/19/2020 Narrative Resulting Agency Comment Lab Testing performed at: [facility] [id number] [address] ?? [facility] [phone] Gloria Smith MD LAB - HEMATOLOGY ORD ERABLES [facility] INSURANCE BILL [address] [place] [address] documented in this encounter Visit Diagnoses Diagnosis 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)- Primary documented in this encounter Care Teams Openstack Developer Relationship Specialty Start Date End Date Tomas Hyman MD [address] [place] [phone] PCP - General Family Medicine 09/05/18 Isidro Heredia MD Rheumatology 02/09/11 documented as of this encounter
--- OUTSIDE RECORDS SUMMARY | 2024-05-03 04:05 | XMS_ITS | Encounter Summary ---
Author Organization [facility] Address [address] [place] [address] Care Team Providers Care Consumer Services Consultant Name Role Phone Isidro Heredia MD Unavailable [phone] Tomas Hyman MD Primary Care Provider [phone] Reason for Visit * Treatment (Routine) - Closed Specialty Diagnoses / Procedures Referred By Contact Referred To Contact Infusion Therapy Nurse / Rheumatology Diagnoses Rheumatoid arthritis without rheumatoid factor, multiple sites (HCC) Procedures ID INFLIXIMAB INJECTION Gloria Smith MD [address] [place] [address] [facility] [address] [address] Referral ID Status Reason Start Date Expiration Date Visits Re quested Visits Authorized [id number] Closed 05/04/2020 04/29/2021 12 12 Encounter Details Date Type Department Care Team (Late st Contact Info) Description 08/24/2020 10:53 AM CDT - 08/24/2020 11:59 PM CDT Hospital Encounter [facility] - Rheumatology [address] [place] [address] Gloria Smith MD [facility] [place] [address] Discharge Disposition: Home or Self [...] Time Taken Comments Blood Pressure 142/77 08/24/2020 11:03 AM CDT Pulse 85 08/24/2020 11:03 AM CDT Temperature 37 ??C (98.6 ??F) 08/24/2020 11: 03 AM CDT Respiratory Rate 18 08/24/2020 11:0 3 AM CDT Oxygen Saturation - - Inhaled Oxygen Concentration - - Weight 109.1 kg (240 lb 9.6 oz) 021 11:03 AM CDT Height - - Body Mass Index 34.52 06/29/2020 12:56 PM SPLICER OPERATOR documented in this encounter Discharge Instructions * Discharge Instructions* Jody Sahu RN - 08/24/2020 11:10 AM CDT [place] Rheumatology Post Infusion instructions You have received [...] rash or breathing problems please call your [facility] Rheumatology physician for further instructions. While most problems that occur around the time of an infusion are very mild and not dangerous, they should not be ignored. Sunday through Sunday 9-5 call the office at [phone] After hours or on the weekend call the exchange at [phone] If you have had lab work done [...] you and are glad you have chosen [facility] as your provider. Jody Sahu RN documented in this encounter Medications at Time of Discharge Medication Sig Dispensed Refills Start Date End Date atorvastatin (LIPITOR) 40 MG tablet Take 1 (one) tablet by mouth at bedtime [id number] ysorb, PF, 0.5-1-0.5 % SOLN Instill 1 [...] Progress Notes * Jody Sahu RN - 08/24/2020 11:34 AM CDT JOSE Deng [id number] 08/24/2020 Diagnosis: Rheumatoid arthritis without rheumatoid factor, multiple sites [M06.09]. Pt denies symptoms of infection or antibiotic use, no open wounds, or recent surgery, or plans for surgery in the next couple of weeks. Pt is aware that we use the 0-10 pain scale to assess discomfort. 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 front counter attendant pt signs consent for treatment for this infusion. BP 142/77 Pulse 85 Temp 98.6 ??F Resp 18 Wt 109.1 kg (240 lb 9.6 oz) BMI 34.52 kg/m2 @ MEDICATIONS FOR CURRENT ENCOUNTER: ?? CONTINUOUS MEDICATIONS: ?? inFLIXimab (Remicade) 600 mg in 0.9% NaCl IV 250 mL infusion, Intravenous, Continuous ?? Number of 24 gauge 3/4 inch placed in Right antecubital ?? 1 attempt(s). Patient monitored throughout procedure. Tolerated well? Yes Next treatment? 4 weeks Jody Sahu, TOVA documented in this encounter Plan of Treatment Upcoming Encounters Date Type Department Care Team (Late st Contact Info) Description 06/03/2024 1:00 PM SPLICER OPERATOR Appointment [facility] - Rheumatology [address] [place] [address] [phone] 06/03/2024 2:00 PM SPLICER OPERATOR Office Visit [facility] - Rheumatology [address] [place] [address] Gloria Smith MD [address] [place] [phone] documented as of this encounter Visit Diagnoses [...] at 10-250 mL/hr, Intravenous, CONTINUOUS, Starting on Sun08/24/20 at 1130, Until Sun08/24/20 at 1329, Infuse over a minimum of [...] Use with in-line filter. $ New Bag/Syringe 08/24/2020 11:20 AM CDT 600 mg 135 mL/hr documented in this encounter Care Teams Consumer Services Consultant Relationship Specialty Start Date End Date Tomas Hyman MD [address] [place] [address] PCP - General Family Medicine 09/05/18 Isidro Heredia MD Rheumatology 02/09/11 documented as of this encounter
--- OUTSIDE RECORDS SUMMARY | 2024-05-03 04:05 | XMS_ITS | Encounter Summary ---
Author Organization [facility] Address [address] [facility] [place] [address] Care Team Providers Care Acid Extractor Name Role Phone Isidro Heredia MD Unavailable [phone] Tomas Hyman MD Primary Care Provider [phone] Encounter Details Date Type Department Care Team (Latest Contact Info) Description 08/24/2020 Travel Social History Tobacco Use Types Packs/Day [...] Contact Info) Description 06/03/2024 1:00 PM RESEARCH PROFESSIONAL Appointment [facility] - Rheumatology [address] [place] [address] 06/03/2024 2:00 PM RESEARCH PROFESSIONAL Office Visit [facility] - Rheumatology [address] [place] [address] Gloria Smith MD [address] [place] [phone] documented as of this encounter Visit Diagnoses Not on filedocumented in this encounter Care Teams Acid Extractor Relationship Specialty Start Date End Date Tomas Hyman MD [address] [facility] [address] [place] [address] PCP - General Family Medicine 09/05/18 Isidro Heredia MD Rheumatology 02/09/11 documented as of this encounter
--- OUTSIDE RECORDS SUMMARY | 2024-05-03 04:05 | XMS_ITS | Encounter Summary ---
Author Organization [facility] Address [address] [place] [address] Care Team Providers Care Regional Sales Director Name Role Phone Isidro Heredia MD Unavailable [phone] Tomas Hyman MD Primary Care Provider [phone] Reason for Visit * Reason Onset Date Comments MEDICATION REFILL 10/29/2020 Encounter Details Date Type Department Care Team (Late st Contact Info) Description 10/29/2020 Refill [facility] - Rheumatology [address] [place] [address] Gloria Smith MD [address] [place] [phone] MEDICATION REFILL Social History Tobacco Use [...] Telephone Encounter - Dixie Beard LPN - 10/29/2020 3:44 PM CDT LRF : 07/13 JINA : 08/24 Next OV : none documented in this encounter Plan of Treatment Upcoming Encounters Date Type Department Care Team (Late st Contact Info) Description 06/03/2024 1:00 PM HIM SPECIALIST Appointment [facility] - Rheumatology [address] [place] [address] 06/03/2024 2:00 PM HIM SPECIALIST Office Visit [facility] - Rheumatology [address] [place] [address] Gloria Smith MD [address] [place] [phone] documented as of this encounter Visit Diagnoses Not on filedocumented in this encounter Care Teams Regional Sales Director Relationship Specialty Start Date End Date Tomas Hyman MD [address] [place] [address] PCP - General Family Medicine 09/05/18 Isidro Heredia MD Rheumatology 02/09/11 documented as of this encounter
--- OUTSIDE RECORDS SUMMARY | 2024-05-03 04:05 | XMS_ITS | Encounter Summary ---
Author Organization [facility] Address [address] [facility] [place] [address] Care Team Providers Care Adoption Services Manager Name Role Phone Isidro Heredia MD Unavailable [phone] Tomas Hyman MD Primary Care Provider [phone] Encounter Details Date Type Department Care Team (Latest Contact Info) Description 04/06/2020 Travel Social History Tobacco Use Types Packs/Day [...] COVID-19? No / Unsure 04/06/2020 1:43 PM STAFF RN documented as of this encounter Plan of Treatment Upcoming Encounters Date Type Department Care Team (Late st Contact Info) Description 06/03/2024 1:00 PM STAFF RN Appointment [facility] - Rheumatology [address] [place] [address] 06/03/2024 2:00 PM STAFF RN Office Visit [facility] - Rheumatology [address] [place] [address] Gloria Smith MD [address] [place] [phone] documented as of this encounter Visit Diagnoses Not on filedocumented in this encounter Care Teams Adoption Services Manager Relationship Specialty Start Date End Date Tomas Hyman MD [address] [facility] [address] [place] [address] PCP - General Family Medicine 09/05/18 Isidro Heredia MD Rheumatology 02/09/11 documented as of this encounter
--- OUTSIDE RECORDS SUMMARY | 2024-05-03 04:05 | XMS_ITS | Encounter Summary ---
Author Organization [facility] Address [address] [facility] [place] [address] Care Team Providers Care Autism Tutor Name Role Phone Isidro Heredia MD Unavailable [phone] Tomas Hyman MD Primary Care Provider [phone] Reason for Visit * Reason Onset Date Comments MEDICATION REFILL 04/05/2020 MEDICATION REFILL 04/12/2020 Encounter Details Date Type Department Care Team (Late Contact Info) Description 04/05/2020 Refill [facility] - Rheumatology [address] [place] [address] Mycsoheilat, Generic Provider MEDICATION REFILL; MEDICATION REFILL Social History Tobacco Use Types [...] COVID-19? No / Unsure 04/09/2020 1:56 PM EMERGENCY ROOM TECHNICIAN documented as of this encounter Plan of Treatment Upcoming Encounters Date Type Department Care Team (Late Contact Info) Description 06/03/2024 1:00 PM EMERGENCY ROOM TECHNICIAN Appointment [facility] Rheumatology [address] [place] [address] 06/03/2024 2:00 PM EMERGENCY ROOM TECHNICIAN Office Visit [facility] - Rheumatology [address] [place] [address] Gloria Smith MD [facility] [place] [phone] documented as of this encounter Visit Diagnoses Not on filedocumented in this encounter Care Teams Autism Tutor Relationship Specialty Start Date End Date Tomas Hyman MD [address] [facility] [address] [place] [address] PCP - General Family Medicine 09/05/18 Isidro Heredia MD Rheumatology 02/09/11 documented as of this encounter
--- OUTSIDE RECORDS SUMMARY | 2024-05-03 04:05 | XMS_ITS | Encounter Summary ---
Author Organization [facility] Address [address] [facility] [place] [address] Care Team Providers Care Cargo Broker Name Role Phone Isidro Heredia MD Unavailable [phone] Tomas Hyman MD Primary Care Provider [phone] Reason for Visit * Reason Onset Date Comments MEDICATION REFILL 07/27/2020 Encounter Details Date Type Department Care Team (Late st Contact Info) Description 07/27/2020 Refill [facility] - Rheumatology [address] [place] [address] Gloria Smith MD [address] [place] [phone] MEDICATION REFILL Social History Tobacco Use [...] PM CDT documented as of this encounter Miscellaneous Notes * Telephone Encounter - Arian Fernando RN - 07/27/2020 3:48 PM CDT NON-BIOLOGIC REFILL REQUEST Last OV: 06/29/2020 Next Appointment: 08/24/2020 Last Fill: 07/14/2020 Recent Labs Component Name 06/29/20 1410 05/04/20 1452 02/06/20 1332 WBC 8.6 8.7 9.4 HGB 12.3 13.0 12.8 PLTCOUNT 180 188 170 MCV 94.8 95.6 95.1 Recent Labs Component Name 06/29/20 1410 05/04/20 1452 02/06/20 1332 CREATININE 1.18 1.13 1.22 BUN 20 13 18 SODIUM 140 137 139 POTASSIUM 4.3 4.3 3.8 Recent Labs Component Name 06/29/20 1410 05/04/20 1452 02/06/20 1332 EGFR >60 >60 >60 EGFRAFR >60 >60 >60 Recent Labs Component Name 06/29/20 1410 05/04/20 1452 02/06/20 1332 AST 21 25 25 ALT 19 25 22 ALKPHOS 61 63 68 TBIL 0.5 0.6 0.6 Last ESR: Recent Labs Component Name 06/29/20 1410 02/06/20 1332 03/06/19 1134 SEDRATE 13 12 6 Last 3 CRP: Recent Labs Component Name 06/29/20 1410 02/06/20 1332 03/06/19 1134 CRP <0.20 0.21 0.31 * Telephone Encounter - Vee Hair - 07/27/2020 1:13 PM CDT Patient requesting 90 day supply. He said he is doing fine on it. documented in this encounter Plan of Treatment Upcoming Encounters Date Type Department Care Team (Late st Contact Info) Description 06/03/2024 1:00 PM BUNDLER Appointment [facility] - Rheumatology [address] [place] [phone] 06/03/2024 2:00 PM BUNDLER Office Visit [facility] - Rheumatology [address] [place] [address] Gloria Smith MD [address] [place] [phone] documented as of this encounter Visit Diagnoses Not on filedocumented in this encounter Care Teams Cargo Broker Relationship Specialty Start Date End Date Tomas Hyman MD [address] [place] [address] PCP - General Family Medicine 09/05/18 Isidro Heredia MD Rheumatology 02/09/11 documented as of this encounter
--- OUTSIDE RECORDS SUMMARY | 2024-05-03 04:05 | XMS_ITS | Encounter Summary ---
Author Organization [facility] Address [address] [facility] [place] [address] Care Team Providers Care Loss Prevention Associate Name Role Phone Isidro Heredia MD Unavailable [phone] Tomas Hyman MD Primary Care Provider [phone] Reason for Visit * Reason Onset Date Comments MEDICATION REFILL 04/05/2020 Encounter Details Date Type Department Care Team (Late st Contact Info) Description 04/05/2020 Refill [facility] - Rheumatology [address] [place] [address] Glroia Smith MD [address] [place] [phone] MEDICATION REFILL Social History Tobacco Use [...] (Late Contact Info) Description 06/03/2024 1:00 PM FIELD TRAINING AGENT Appointment [facility] - Rheumatology [address] [place] [address] 06/03/2024 2:00 PM FIELD TRAINING AGENT Office Visit [facility] - Rheumatology [address] [place] [address] Gloria Smith MD [address] [place] [phone] documented as of this encounter Visit Diagnoses Not on filedocumented in this encounter Care Teams Loss Prevention Associate Relationship Specialty Start Date End Date Tomas Hyman MD [address] [place] [address] PCP - General Family Medicine 09/05/18 Isidro Heredia MD Rheumatology 02/09/11 documented as of this encounter
--- OUTSIDE RECORDS SUMMARY | 2024-05-03 04:05 | XMS_ITS | Encounter Summary ---
Author Organization [facility] Address [address] [facility] [place] [address] Care Team Providers Care Driver Engineer Name Role Phone Isidro Heredia MD Unavailable [phone] Tomas Hyman MD Primary Care Provider [phone] Reason for Visit * Reason Comments Arthritis follow up Encounter Details Date Type Department Care Team (Late st Contact Info) Description 04/06/2020 2:40 PM POWDER MIXER Office Visit [facility] - Rheumatology [address] [place] [address] Gloria Smith MD [address] [place] [address] Rheumatoid arthritis of multiple sites with [...] COVID-19? No / Unsure 04/06/2020 1:43 PM POWDER MIXER documented as of this encounter Last Filed Vital Signs Vital Sign Reading Time Taken Comments Blood Pressure 138/75 04/06/2020 2:29 PM POWDER MIXER Pulse 74 04/06/2020 2:29 PM POWDER MIXER Temperature 36.2 ??C (97.2 ??F) 04/06/2020 2:29 PM CS T Respiratory Rate - - Oxygen Saturation - - Inhaled Oxygen Concentration - - Weight 103 kg (227 lb) 04/06/2020 2:29 PM POWDER MIXER Height - - Body Mass Index 32.57 11/10/2019 10:34 AM CDT documented in this encounter Progress Notes * Gloria Smith MD - 04/06/2020 2:46 PM CST CHIEF COMPLAINTS: Follow-up on rheumatoid [...] 2009, rf 10.2) Last seen on February 06, 2020. He received the first Remicade infusion since infection on March 05, 2020, and is getting the second infusion today. Has had improvement of joint pain. Still not back to his baseline. Chronic pain in ankles, hands, at 6/10 to 8/10. Prolonged morning stiffness and chronic puffiness in hands. The wound in the left thigh is improving but not completely healed. No signof infection. Ganglion cyst in the left palm is unchanged and bothersome. Denies fever, chills, shortness of breath. Medication history: mtx 2004-present Remicade 10/2004-08/02/2005 lost efficacy. Resumed in February, - present Orencia 09/13/2005-11/22/2005 allergic reaction Rituxan 12/06/2005-05/01/2006, inadequate response, Humira 08/13/2006, effective. No details. actemra ?- 2018, urosepsis. History of diverticulitis RA: Patient was diagnosed of rheumatoid arthritis in early 1999s when he was in the . Triedinfliximab [...] except as per HPI. PHYSICAL EXAM: BP 138/75 Pulse 74 Temp 97.2 ??F (36.2 ??C) Wt 103 kg (227 lb) BMI 32.57 kg/m2 General: in no acute distress. HEENT: anicteric sclera, no conjunctival injection, PERRL, no oral ulcers. Neck: supple, nontender, no lymphadenopathy Chest: nontender. Abdomen: soft, nontender Extremities: no peripheral swelling, clubbing or cyanosis Skin: No rash Neurologic: Moves all extremities MSK: Mild tenderness and fullness in wrists, MCP, PIP joints, tenderness without swelling in some DIP joints in the right hand. Similar tenderness and fullness in the left hand but milder. Tenderness in elbows, medial aspect of both knees, tenderness and some swelling in ankles. LABORATORY: Recent Labs Component Name 02/06/20 1332 08/29/19 1245 03/06/19 1134 WBC 9.4 8.3 9.4 RBC 4.28 4.39 4.18 HGB 12.8 13.1 12.6 HCT 40.7 39.8 41.7 MCV 95.1 91 99.8* MCHC 31.4 32.9 30.2* PLTCOUNT 170 221 194 MONOCYTPCT 7.7 9 6.4 EOSINPCT 11.5* 5 2.2 LYMPHABS 3.14 3.9* 2.42 MONOCYTABS 0.72 0.8 0.60 BASOABS 0.13* 0.1 0.05 IMMGRANSABS 0.02 0.0 0.04 Recent Labs Component Name 02/06/20 1332 09/26/19 1318 08/29/19 1245 03/06/19 1134 SODIUM 139 137 140 139 POTASSIUM 3.8 4.4 4.2 4.3 CHLORIDE 103 102 100 103 CO2 27 27 23 28 BUN 18 17 20 16 CREATININE 1.22 1.14 1.57* 1.25 GLUCOSE 106* 98 94 81 CALCIUM 9.0 8.7 9.4 9.3 ALBUMIN 4.2 - 4.3 4.3 ALKPHOS 68 - 78 56 ALT 22 - 22 23 AST 25 - 22 22 TBIL 0.6 - 0.4 0.4 TPROT 6.8 - 7.1 6.9 EGFR >60 >60 49* 60* Recent Labs Component Name 02/06/20 1332 03/06/19 1134 04/07/15 1630 CRP 0.21 0.31 <0.29 Recent Labs Component Name 02/06/20 1332 03/06/19 1134 10/24/18 1000 SEDRATE 12 6 8 IMAGINGS: 07/03/19 MRI L spine: L4-L5 moderate facet arthropathy, central canal and right neural foraminal stenosis. Lessor spondylosis other levels. ASSESSMENT & PLAN: Current medication: Methotrexate 10 mg weekly, infliximab 600 mg every 4 weeks, folic acid 1 mg daily, prednisone 5 mg,naproxen 500 mg b.i.d. 59-year-old white male with: Seropositive rheumatoid arthritis Right palm ganglion cyst Osteoporosis Chronic back pain and lumbar radiculopathy High-risk medication (Raquel 1:160, ccp 22+ in 2010, rf 10.2, esr-, crp) Follow-up for inflammatory arthritis. Joint symptoms improving on Remicade but is still worse than his baseline. No infection since his last visit. - continue infliximab and methotrexate - switch naproxen to Celebrex 200 mg b.i.d. - continue prednisone 5 mg - repeat CBC and CMP at the next infusion - return to clinic in 3 months Right palms ganglion cyst - it is bothersome. Referred him to Orthopedics Chronic neck and back pain - follows with Pain Management and received epidural injections. Off Percocet since July,. Osteoporosis - Will repeat DEXA bone density scan - took alendronate from [id number]. ER MIXER documented in this encounter Plan of Treatment Upcoming Encounters Date Type Department Care Team (Late st Contact Info) Description 06/03/2024 1:00 PM POWDER MIXER Appointment [facility] - Rheumatology [address] [place] [address] 06/03/2024 2:00 PM POWDER MIXER Office Visit [facility] - Rheumatology [address] [place] [address] Gloria Smith MD [address] [place] [phone] documented as of this encounter Procedures Procedure Name Priority Date/Time Associated Diagnosis Comments CBC W AUTO DIFFERENTIAL Routine 05/04/2020 2:52 PM POWDER MIXER 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) COMPREHENSIVE METABOLIC PANEL Routine 05/04/2020 2:52 PM POWDER MIXER 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) documented in this encounter Results * (ABNORMAL) COMPREHENSIVE METABOLIC PANEL (05/04/2020 2:52 PM POWDER MIXER) Glucose 108(H) 70 - 105 mg/dL [facility] INSURANCE BILL BUN 13 8.4 - 25.7 mg/dL [facility] INSURANCE BILL Creatinine 1.13 0.72 - 1.25 mg/dL [facility] INSURANCE BILL eGFR by MDRD >60 >60 mL/min/1.7 3m2 [facility] INSURANCE BILL eGFR by MDRD >60 >60 mL/min/1.7 3m2 [facility] INSURANCE BILL Sodium 137 136 - 145 mmol/L [facility] INSURANCE BILL Potassium 4.3 3.5 - 5.1 mmol/L [facility] INSURANCE BILL Chloride 100 98 - 107 mmol/L [facility] INSURANCE BILL CO2 27 23 - 31 mmol/L [facility] INSURANCE BILL Calcium 9.4 8.4 - 10.4 mg/dL [facility] INSURANCE BILL Protein Total 7.0 6.4 - 8.3 gm/dL [facility] INSURANCE BILL Albumin 4.3 3.5 - 5.2 gm/dL [facility] INSURANCE BILL Bilirubin Total 0.6 0.2 - 1.2 mg/dL [facility] INSURANCE BILL Comment:Attention clinician: Reference Range change. Alkaline Phosphatase 63 40 - 150 U/L [facility] INSURANCE BILL Comment:Attention clinician: Reference Range change. AST 25 5 - 34 U/L [facility] INSURANCE BILL ALT 25 0 - 61 U/L [facility] INSURANCE BILL Blood BLOOD SPECIMEN / Unknown 05/04/2020 2:52 PM POWDER MIXER 05/04/2020 Narrative Resulting Agency Comment Lab Testing performed at: [facility] [address] [place] [address] ?? [place] [id number] Gloria Smith MD LAB - CHEMISTRY MARII ARAUJO [facility] INSURANCE BILL [address] [place] [address] * CBC WITH DIFFERENTIAL (05/04/2020 2:52 PM POWDER MIXER) WBC 8.7 4.4 - 10.7 x10E9/L [facility] INSURANCE BILL RBC 4.27 3.80 - 5.40 x10E12/L [facility] INSURANCE BILL Hemoglobin 13.0 12.0 - 17.6 gm/dL [facility] INSURANCE BILL Hematocrit 40.8 35.2 - 51.7 % [facility] INSURANCE BILL MCV 95.6 80.7 - 98.3 fl [facility] INSURANCE BILL MCH 30.4 26.7 - 34.0 pg [facility] INSURANCE BILL MCHC 31.9 30.8 - 35.9 gm/dL [facility] INSURANCE BILL RDW 14.1 12.1 - 14.9 % [facility] INSURANCE BILL Platelet Count 188 153 - 416 x10E9/L [facility] INSURANCE BILL Comment:MPV FL BLOOD ([facility]) 1 0.7 fl 9.4-12.9 Granulocytes % 44.6 44.0 - 73.0 % [facility] INSURANCE BILL Lymphocytes % 41.6 20.0 - 43.0 % [facility] INSURANCE BILL Monocytes % 7.6 5.0 - 13.0 % [facility] INSURANCE BILL Eosinophils % 5.2 0.0 - 6.0 % [facility] INSURANCE BILL Basophils % 0.8 0.0 - 2.0 % [facility] INSURANCE BILL Granulocytes Absolute 3.89 2.01 - 7.14 x10E9/L [facility] INSURANCE BILL Lymphocytes Absolute 3.62 1.07 - 3.94 x10E9/L [facility] INSURANCE BILL Monocytes Absolute 0.66 0.26 - 1.07 x10E9/L [facility] INSURANCE BILL Eosinophils Absolute 0.45 0 - 0.47 x10E9/L [facility] INSURANCE BILL Basophils Absolute 0.07 0 - 0.08 x10E9/L [facility] INSURANCE BILL Immature Granulocytes 0.2 0 - 1 % [facility] INSURANCE BILL Immature Granulocytes Absolute 0.02 0.00 - 0.06 x10E9/L [facility] INSURANCE BILL nRBC 0 /100 WBC [facility] INSURANCE BILL Blood BLOOD SPECIMEN / Unknown 05/04/2020 2:52 PM POWDER MIXER 05/04/2020 Narrative Resulting Agency Comment Lab Testing performed at: [address] ?? [facility] [id number] Gloria Smith MD LAB - HEMATOLOGY ORD ERABLES [facility] INSURANCE BILL [address] [place] [address] documented in this encounter Visit Diagnoses Diagnosis 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)- Primary documented in this encounter Care Teams Driver Engineer Relationship Specialty Start Date End Date Tomas Hyman MD [address] [place] [address] PCP - General Family Medicine 09/05/18 Isidro Heredia MD Rheumatology 02/09/11 documented as of this encounter
--- OUTSIDE RECORDS SUMMARY | 2024-05-03 04:05 | XMS_ITS | Encounter Summary ---
Author Organization [facility] Address [address] [facility] [place] [address] Care Team Providers Care Sample Maker Hand Name Role Phone Isidro Heredia MD Unavailable [phone] Tomas Hyman MD Primary Care Provider [phone] Encounter Details Date Type Department Care Team (Late Contact Info) Description 05/10/2020 10:30 AM AUTO CUSTOMIZE PAINTER Ancillary Procedure [facility] Orthopedics [address] [place] [phone] Nini Han MD [address] [place] [phone] Hand pain, right Social History Tobacco Use Types Packs/Day Years [...] COVID-19? No / Unsure 05/04/2020 2:08 PM AUTO CUSTOMIZE PAINTER documented as of this encounter Plan of Treatment Upcoming Encounters Date Type Department Care Team (Late Contact Info) Description 06/03/2024 1:00 PM AUTO CUSTOMIZE PAINTER Appointment [facility] Medical [facility] - Rheumatology [address] [place] [address] 06/03/2024 2:00 PM AUTO CUSTOMIZE PAINTER Office Visit [facility] - Rheumatology [address] [place] [address] Gloria Smith MD [address] [place] [address] [place] [phone] documented as of this encounter Procedures Procedure Name Priority Date/Time Associated Diagnosis Comments XR HAND RIGHT 3VW OR MORE Routine 05/10/2020 10:37 AM AUTO CUSTOMIZE PAINTER Hand pain, right documented in this encounter Results * XR HAND RIGHT 3VW OR MORE (05/10/2020 10:37 AM AUTO CUSTOMIZE PAINTER) Anatomical Region Laterality Modality Wrist / Hand Computed Radiogr aphy Narrative 05/10/2020 10:38 AM AUTO CUSTOMIZE PAINTER Mora Delgado M, RT(R) ? 05/10/2020 11:39 AM See chart for xray results Nini Han MD DIAGNOSTIC IMAGING ORDERABLES documented in this encounter Visit Diagnoses Diagnosis Hand pain, right Pain in limb documented in this encounter Care Teams Sample Maker Hand Relationship Specialty Start Date End Date Tomas Hyman MD [address] [facility] [address] [place] [address] PCP - General Family Medicine 09/05/18 Isidro Heredia MD Rheumatology 02/09/11 documented as of this encounter
--- OUTSIDE RECORDS SUMMARY | 2024-05-03 04:05 | XMS_ITS | Encounter Summary ---
Author Organization [facility] Address [address] [facility] [place] [address] Care Team Providers Care Live Truck Operator Name Role Phone Isidro Heredia MD Unavailable [phone] Tomas Hyman MD Primary Care Provider [phone] Encounter Details Date Type Department Care Team (Late Contact Info) Description 11/11/2020 Orders Only [facility] - Rheumatology [address] [facility], [address] [place] [address] Gloria Smith MD [address] [place] [address] Social History Tobacco Use Types Packs/Day [...] (Late Contact Info) Description 06/03/2024 1:00 PM MACHINE CLIPPER Appointment [facility] - Rheumatology [address] [place] [address] 06/03/2024 2:00 PM MACHINE CLIPPER Office Visit [facility] - Rheumatology [address] [place] [address] Gloria Smith MD [address] [place] [address] documented as of this encounter Visit Diagnoses Not on filedocumented in this encounter Care Teams Live Truck Operator Relationship Specialty Start Date End Date Tomas Hyman MD [address] [place] [address] PCP - General Family Medicine 09/05/18 Isidro Heredia MD Rheumatology 02/09/11 documented as of this encounter
--- OUTSIDE RECORDS SUMMARY | 2024-05-03 04:05 | XMS_ITS | Encounter Summary ---
Author Organization [facility] Address [address] [facility] [place] [address] Care Team Providers Care Specialist Physicians Name Role Phone Isidro Heredia MD Unavailable [phone] Tomas Hyman MD Primary Care Provider [phone] Reason for Visit * Treatment (Routine) - Closed Specialty Diagnoses / Procedures Referred By Contact Referred To Contact Infusion Therapy Nurse / Rheumatology Diagnoses Rheumatoid arthritis without rheumatoid factor, multiple sites (HCC) Procedures [place] INFLIXIMAB INJECTION Gloria Smith MD [address] [place] [address] [facility] [address] [address] Referral ID Status Reason Start Date Expiration Date Visits Re quested Visits Authorized [id number] Closed 05/04/2020 04/29/2021 12 12 Encounter Details Date Type Department Care Team (Late st Contact Info) Description 06/01/2020 10:50 AM SCHOOL GUIDANCE COUNSELOR - 06/01/2020 11:59 PM SCHOOL GUIDANCE COUNSELOR Hospital Encounter [facility] Medical [facility] - Rheumatology [address] [place] [address] Gloria Smith MD [address] [place], [place] [address] [address] Discharge Disposition: Home or Self [...] COVID-19? No / Unsure 05/04/2020 2:08 PM SCHOOL GUIDANCE COUNSELOR documented as of this encounter Last Filed Vital Signs Vital Sign Reading Time Taken Comments Blood Pressure 119/72 06/01/2020 11:08 AM SCHOOL GUIDANCE COUNSELOR Pulse 75 06/01/2020 11:08 AM SCHOOL GUIDANCE COUNSELOR Temperature 36.3 ??C (97.3 ??F) 06/01/2020 11:[address] Respiratory Rate 18 06/01/2020 11:08 AM SCHOOL GUIDANCE COUNSELOR Oxygen Saturation - - Inhaled Oxygen Concentration - - Weight 104.3 kg (230 lb) 06/01/2020 11:08 AM SCHOOL GUIDANCE COUNSELOR Height - - Body Mass Index 33 05/10/2020 10:26 AM SCHOOL GUIDANCE COUNSELOR documented in this encounter Discharge Instructions * Discharge Instructions* Jody Sahu RN - 06/01/2020 11:14 AM SCHOOL GUIDANCE COUNSELOR [place] Rheumatology Post Infusion instructions You have [...] rash or breathing problems please call your [facility] Rheumatology physician for further instructions. While most problems that occur around the time of an infusion are very mild and not dangerous, they should not be ignored. Sunday through Sunday 9-5 call the office at [phone] After hours or on the weekend call the exchange at [phone] If you have had lab work done [...] you and are glad you have chosen [facility] as your provider. Jody Sahu, RN OL GUIDANCE COUNSELOR documented in this encounter Medications at Time of Discharge Medication Sig Dispensed Refills Start Date End Date atorvastatin (LIPITOR) 40 MG tablet Take 1 (one) tablet by mouth at bedtime oignhwywigj-zghe-mlm ysorb, PF, 0.5-1-0.5 % SOLN Instill 1 [...] with negative rheumatoid factor (HCC) Take 1 capsule by mouth 2 times daily 30 capsule 1 04/06/2020 06/29/2020 folic acid (FOLVITE) 1 MG tablet Take 1 tablet by mouth once daily 90 tablet 4 04/05/2020 06/29/2020 gabapentin (NEURONTIN) 300 MG capsule Take 1 capsule by mouth 3 times daily 270 capsule 1 01/21/2020 07/12/2020 InFLIXimab (REMICADE IV) 600 mg by Intravenous route as directed Every 4 weeks 11/16/2020 methotrexate 2.5 MG tablet Take 6 tablets by mouth every 7 days 72 tablet 04/05/2020 06/29/2020 naproxen (NAPROSYN) 500 MG tablet Take 1 [...] Progress Notes * Jody Sahu RN - 06/01/2020 11:22 AM CST JOSE [place] Ish [id number] 06/01/2020 Diagnosis: Rheumatoid arthritis without rheumatoid factor, multiple sites [M06.09]. Pt denies symptoms of infection or antibiotic use, no open wounds, or recent surgery, or plans for surgery in the next couple of weeks. Pt is aware that we use the 0-10 pain scale to assess discomfort. 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 patient coordinator front desk pt signs consent for treatment for this infusion. BP 119/72 Pulse 75 Temp 97.3 ??F Resp 18 Wt 104.3 kg (230 lb) BMI 33 kg/m2 @ MEDICATIONS FOR CURRENT ENCOUNTER: ?? CONTINUOUS MEDICATIONS: ? inFLIXimab (REMICADE) 600 mg in 0.9% NaCl IV 250 mL infusion, Intravenous, Continuous ?? Number of 24 gauge 3/4 inch placed in Right antecubital ?? 1 attempt(s). Patient monitored throughout procedure. Tolerated well? Yes Next treatment? 4 weeks Jody Sahu RN OL GUIDANCE COUNSELOR documented in this encounter Plan of Treatment Upcoming Encounters Date Type Department Care Team (Late st Contact Info) Description 06/03/2024 1:00 PM SCHOOL GUIDANCE COUNSELOR Appointment [facility] - Rheumatology [address] [place] [address] 06/03/2024 2:00 PM SCHOOL GUIDANCE COUNSELOR Office Visit [facility] - Rheumatology [address] [place] [address] Gloria Smith MD [address] [place] [phone] documented as of this encounter Visit [...] at 10-250 mL/hr, Intravenous, CONTINUOUS, Starting on Sun06/01/20 at 1130, Until Sun06/01/20 at 1329, Infuse over a minimum of [...] Use with in-line filter. $ New Bag/Syringe 06/01/2020 11:24 AM SCHOOL GUIDANCE COUNSELOR 600 mg 135 mL/hr documented in this encounter Care Teams Specialist Physicians Relationship Specialty Start Date End Date Tomas Hyman MD [address] [place] [address] PCP - General Family Medicine 09/05/18 Isidro Heredia MD Rheumatology 02/09/11 documented as of this encounter
--- OUTSIDE RECORDS SUMMARY | 2024-05-03 04:05 | XMS_ITS | Encounter Summary ---
Author Organization [facility] Address [address] [place] [address] Care Team Providers Care Quality Control Clerk Name Role Phone Isidro Heredia MD Unavailable [phone] Tomas Hyman MD Primary Care Provider [phone] Reason for Visit * Treatment (Routine) - Closed Specialty Diagnoses / Procedures Referred By Lawrence shah Referred To Contact Infusion Therapy Nurse Diagnoses Rheumatoid arthritis without rheumatoid factor, multiple sites (HCC) Procedures [place] INFLIXIMAB INJECTION Gloria Smith MD [address] [place] [address] [address] Referral ID Status Reason Start Date Expiration Date Visits Re quested Visits Authorized [id number] Closed 05/09/2019 04/29/2020 1 12 Encounter Details Date Type Department Care Team (Late st Contact Info) Description 04/06/2020 12:46 PM ROVER TENDER - 04/06/2020 11:59 PM ROVER TENDER Hospital Encounter [facility] Medical [facility] - Rheumatology [address] [place] [address] Gloria Smith MD [address] [place] [phone] Discharge Disposition: Home or Self Care [...] COVID-19? No / Unsure 04/06/2020 1:43 PM ROVER TENDER documented as of this encounter Last Filed Vital Signs Vital Sign Reading Time Taken Comments Blood Pressure 138/75 04/06/2020 1:06 PM ROVER TENDER Pulse 74 04/06/2020 1:06 PM ROVER TENDER Temperature 36.2 ??C (97.2 ??F) 04/06/2020 1:06 PM CS T Respiratory Rate 18 04/06/2020 1:06 PM ROVER TENDER Oxygen Saturation - - Inhaled Oxygen Concentration - - Weight 103 kg (227 lb) 04/06/2020 1:06 PM ROVER TENDER Height - - Body Mass Index 32.57 11/10/2019 10:34 AM CDT documented in this encounter Discharge Instructions * Discharge Instructions* Jody Sahu RN - 04/06/2020 1:12 PM ROVER TENDER [place] Rheumatology Post Infusion instructions You have received [...] through Sunday 9-5 call the office at [phone] After hours or on the weekend call the exchange at [phone] If you have had lab work done [...] you and are glad you have chosen [facility] as your provider. Jody Sahu, RN R TENDER documented in this encounter Medications at Time of Discharge Medication Sig Dispensed Refills Start Date End Date atorvastatin (LIPITOR) 40 MG tablet Take 1 (one) tablet by mouth at bedtime avwhcmgkkan-nhsa-nek ysorb, PF, 0.5-1-0.5 % SOLN Instill 1 [...] Progress Notes * Jody Sahu RN - 04/06/2020 1:37 PM CST JOSE Deng [id number] 04/06/2020 Diagnosis: Rheumatoid arthritis without rheumatoid factor, multiple sites [M06.09]. Pt denies symptoms of infection or antibiotic use, no open wounds, or recent surgery, or plans for surgery in the next couple of weeks. Pt is aware that we use the 0-10 pain scale to assess discomfort. 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 manager front office pt signs consent for treatment for this infusion. BP 138/75 Pulse 74 Temp 97.2 ??F Resp 18 Wt 103 kg (227 lb) BMI 32.57 kg/m2 @ MEDICATIONS FOR CURRENT ENCOUNTER: ?? SCHEDULED MEDICATIONS: ? inFLIXimab (REMICADE) 600 mg in 0.9% NaCl IV 250 mL infusion, Intravenous, Continuous ?? Number of 24 gauge ?? 3/4 inch placed in Right antecubital ?? 1 attempt(s). Patient monitored throughout procedure. Tolerated well? Yes Next treatment? 4 weeks Jody Sahu RN R TENDER documented in this encounter Plan of Treatment Upcoming Encounters Date Type Department Care Team (Late st Contact Info) Description 06/03/2024 1:00 PM ROVER TENDER Appointment [facility] - Rheumatology [address] [place] [address] 06/03/2024 2:00 PM ROVER TENDER Office Visit [facility] - Rheumatology [address] [place] [address] Gloria Smith MD [address] [place] [phone] documented as of this encounter Visit Diagnoses Diagnosis 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)- Primary documented in this encounter Administered Medications Inactive Administered Medications - up to 3 most recent administrations Medication Order MAR Action Action Date Dose Rate Site inFLIXimab (REMICADE) 600 mg in 0.9% NaCl IV 250 mL infusion 600 mg, at 250 mL/hr, Intravenous, CONTINUOUS, Starting on 04/06/20 at 1330, Until 04/06/20 at 1529, Infuse over a minimum of [...] Use with in-line filter. $ New Bag/Syringe 04/06/2020 1:23 PM ROVER TENDER 600 mg 135 mL/hr documented in this encounter Care Teams Quality Control Clerk Relationship Specialty Start Date End Date Tomas Hyman MD [address] [place] [address] PCP - General Family Medicine 09/05/18 Isidro Heredia MD Rheumatology 02/09/11 documented as of this encounter
--- OUTSIDE RECORDS SUMMARY | 2024-05-03 04:05 | XMS_ITS | Encounter Summary ---
Author Organization [facility] Address [address] [place] [address] Care Team Providers Care Chief Juvenile Probation Officer Name Role Phone Isidro Heredia MD Unavailable [phone] Tomas Hyman MD Primary Care Provider [phone] Reason for Visit * Reason Comments Establish Care right hand Encounter Details Date Type Department Care Team (Late st Contact Info) Description 05/10/2020 9:45 AM ASBESTOS ABATEMENT TECHNICIAN Office Visit [facility] Orthopedics [address] [place] [phone] Nini Han MD [address] [place] [phone] Dupuytren's contracture (Primary Dx); Hand pain, right Social History Tobacco Use [...] COVID-19? No / Unsure 05/04/2020 2:08 PM ASBESTOS ABATEMENT TECHNICIAN documented as of this encounter Last Filed Vital Signs Vital Sign Reading Time Taken Comments Blood Pressure - - Pulse - - Temperature - - Respiratory Rate - - Oxygen Saturation - - Inhaled Oxygen Concentration - - Weight 102.1 kg (225 lb) 05/10/2020 10:26 AM ASBESTOS ABATEMENT TECHNICIAN Height 177.8 cm (5' 10 ) 05/10/2020 10:26 AM ASBESTOS ABATEMENT TECHNICIAN Body Mass Index 32.28 05/10/2020 10:26 AM ASBESTOS ABATEMENT TECHNICIAN documented in this encounter Progress Notes * Eryn Matos - 05/10/2020 10:25 AM CST Right hand STOS ABATEMENT TECHNICIAN documented in this encounter H&P Notes * Nini Han MD - 05/11/2020 4:35 AM CST DATE OF SERVICE: 05/10/2020 SUBJECTIVE: Chalino Deng is a 59-year-old male, here regarding his right hand. He has noticed a lump in it in the past 3 to 4 months. It is not tender. It is just something he has noticed and is making sure it is not anything he needs to deal with. PAST MEDICAL HISTORY: High blood pressure, sleep apnea, rheumatoid arthritis, and COPD. REVIEW OF SYSTEMS: Occasionally gets shortness of breath, chest pain, and occasional numb and tingly things. PAST SURGICAL HISTORY: Tonsils out. ALLERGIES: To Plaquenil and tuberculin PPD. CURRENT MEDICATIONS: Include Remicade infusions and he also takes a baby aspirin, Lipitor, Wellbutrin, Coreg, Celebrex, iron, folic acid, Neurontin, glucosamine, hydrochlorothiazide, and Vascepa. He is on prednisone 5 mg twice a day and Zanaflex. OBJECTIVE: He is 5 feet 10 inches, 225 pounds, puts his BMI at 32. Right hand shows a palmar nodule over the fourth metacarpal head. It is nontender. He does not have any cords going up into the fingers. It does not involve any other fingers nor his thumb. On the left side, it is negative. He is able to get his hand flat on the table. He is neurologically intact. No other issues, pain, or swelling. RADIOGRAPHS: X-rays, 3 views of the right hand show no bony abnormality. IMPRESSION: Dupuytren's contracture, right hand. PLAN: We spent time talking about the nature and possible progression of the disease. There is nothing we can do to prevent it, but if he cannot get his hand flat on the table that is when we do something about it. In the absence of that, doing nothing will be fine. He can proceed with activities as his symptoms will allow and call if he has any further concerns or problems. Nini Han M.D. CK/MedQ #: [id number] cc: Tomas Hyman STOS ABATEMENT TECHNICIAN documented in this encounter Procedure Notes * Mora Delgado RT(R) - 05/10/2020 10:38 AM CSTAssociated Order(s): XR HAND RIGHT 3VW OR MORE See chart for xray results STOS ABATEMENT TECHNICIAN documented in this encounter Plan of Treatment Upcoming Encounters Date Type Department Care Team (Late st Contact Info) Description 06/03/2024 1:00 PM ASBESTOS ABATEMENT TECHNICIAN Appointment [facility] - Rheumatology [address] [place] [address] 06/03/2024 2:00 PM ASBESTOS ABATEMENT TECHNICIAN Office Visit [facility] - Rheumatology [address] [place] [address] Gloria Smith MD [address] [place] [phone] documented as of this encounter Procedures Procedure Name Priority Date/Time Associated Diagnosis Comments XR HAND RIGHT 3VW OR MORE Routine 05/10/2020 10:37 AM ASBESTOS ABATEMENT TECHNICIAN Hand pain, right documented in this encounter Results * XR HAND RIGHT 3VW OR MORE (05/10/2020 10:37 AM ASBESTOS ABATEMENT TECHNICIAN) Anatomical Region Laterality Modality Wrist / Hand Computed Radiogr aphy Narrative 05/10/2020 10:38 AM ASBESTOS ABATEMENT TECHNICIAN Mora Delgado, RT(R) ? 05/10/2020 11:39 AM See chart for xray results Nini Han MD DIAGNOSTIC IMAGING ORDERABLES documented in this encounter Visit Diagnoses Diagnosis Dupuytren's contracture- Primary Contracture of palmar fascia Hand pain, right Pain in limb Hand pain, right Pain in limb documented in this encounter Care Teams Chief Juvenile Probation Officer Relationship Specialty Start Date End Date Tomas Hyman MD [address] [facility] [address] [place] [address] PCP - General Family Medicine 09/05/18 Isidro Heredia MD Rheumatology 02/09/11 documented as of this encounter
--- OUTSIDE RECORDS SUMMARY | 2024-05-03 04:05 | XMS_ITS | Encounter Summary ---
Author Organization [facility] Address [address] [facility] [place] [address] Care Team Providers Care Barrel Roller Name Role Phone Isidro Heredia MD Unavailable [phone] Tomas Hyman MD Primary Care Provider [phone] Reason for Visit * Treatment (Routine) - Closed Specialty Diagnoses / Procedures Referred By Contact Referred To Contact Infusion Therapy Nurse / Rheumatology Diagnoses Rheumatoid arthritis without rheumatoid factor, multiple sites (HCC) Procedures [place] INFLIXIMAB INJECTION Gloria Smith MD [address] [place] [address] [facility] [address] [address] Referral ID Status Reason Start Date Expiration Date Visits Re quested Visits Authorized [id number] Closed 05/04/2020 04/29/2021 12 12 Encounter Details Date Type Department Care Team (Late st Contact Info) Description 05/04/2020 11:42 AM INVASIVE PHYSICIAN - 05/04/2020 11:59 PM INVASIVE PHYSICIAN Hospital Encounter [facility] Medical [facility] - Rheumatology [address] [place] [address] Gloria Smith MD [address] [place], [place] [address] [address] Discharge Disposition: Home or Self [...] COVID-19? No / Unsure 05/04/2020 2:08 PM INVASIVE PHYSICIAN documented as of this encounter Last Filed Vital Signs Vital Sign Reading Time Taken Comments Blood Pressure 126/84 05/04/2020 12:14 PM INVASIVE PHYSICIAN Pulse 78 05/04/2020 12:14 PM INVASIVE PHYSICIAN Temperature 36.2 ??C (97.2 ??F) 05/04/2020 12:[address] Respiratory Rate 18 05/04/2020 12:14 PM INVASIVE PHYSICIAN Oxygen Saturation - - Inhaled Oxygen Concentration - - Weight 103.4 kg (228 lb) 05/04/2020 12:14 PM INVASIVE PHYSICIAN Height - - Body Mass Index 32.71 11/10/2019 10:34 AM CDT documented in this encounter Discharge Instructions * Discharge Instructions* Jody Sahu RN - 05/04/2020 12:41 PM INVASIVE PHYSICIAN [facility] Post Infusion instructions You have received [...] through Sunday 9-5 call the office at [phone] After hours or on the weekend call the exchange at [phone] If you have had lab work done [...] [facility] as your provider. Jody Sahu, TOVA SIVE PHYSICIAN documented in this encounter Medications at Time of Discharge Medication Sig Dispensed Refills Start Date End Date atorvastatin (LIPITOR) 40 MG tablet Take 1 (one) tablet by mouth at bedtime ysuuyuowldw-lhyc-jue ysorb, PF, 0.5-1-0.5 % SOLN Instill 1 [...] Progress Notes * Jody Sahu RN - 05/04/2020 12:42 PM CST JOSE Allred Ish [id number] 05/04/2020 Diagnosis: Rheumatoid arthritis without rheumatoid factor, multiple sites [M06.09]. Pt denies symptoms of infection or antibiotic use, no open wounds, or recent surgery, or plans for surgery in the next couple of weeks. Pt is aware that we use the 0-10 pain scale to assess discomfort. 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 front line supervisor pt signs consent for treatment for this infusion. BP 126/84 Pulse 78 Temp 97.2 ??F Resp 18 Wt 103.4 kg (228 lb) BMI 32.71 kg/m2 @ MEDICATIONS FOR CURRENT ENCOUNTER: ?? CONTINUOUS MEDICATIONS: ? inFLIXimab (REMICADE) 600 mg in 0.9% NaCl IV 250 mL infusion, Intravenous, Continuous ?? Number of 24 gauge 3/4 inch placed in Left antecubital ?? 1 attempt(s). Patient monitored throughout procedure. Tolerated well? Yes Next treatment? 4 weeks Jdoy Sahu RN SIVE PHYSICIAN documented in this encounter Plan of Treatment Upcoming Encounters Date Type Department Care Team (Late st Contact Info) Description 06/03/2024 1:00 PM INVASIVE PHYSICIAN Appointment [facility] - Rheumatology [address] [place] [address] 06/03/2024 2:00 PM INVASIVE PHYSICIAN Office Visit [facility] - Rheumatology [address] [place] [address] Gloria Smith MD [address] [place] [phone] documented as of this encounter Visit [...] at 10-250 mL/hr, Intravenous, CONTINUOUS, Starting on Sun05/04/20 at 1230, Until Sun05/04/20 at 1429, Infuse over a minimum of 2 hours. [...] Use with in-line filter. $ New Bag/Syringe 05/04/2020 12:28 PM INVASIVE PHYSICIAN 600 mg 135 mL/hr documented in this encounter Care Teams Barrel Roller Relationship Specialty Start Date End Date Tomas Hyman MD [address] [place] [address] PCP - General Family Medicine 09/05/18 Isidro Heredia MD Rheumatology 02/09/11 documented as of this encounter
--- OUTSIDE RECORDS SUMMARY | 2024-05-03 04:05 | XMS_ITS | Encounter Summary ---
Author Organization [facility] Address [address] [place] [address] Care Team Providers Care Process Equipment Operator Name Role Phone Isidro Heredia MD Unavailable [phone] Tomas Hyman MD Primary Care Provider [phone] Reason for Visit * Reason Onset Date Comments MEDICATION REFILL 07/12/2020 MEDICATION REFILL 07/20/2020 Encounter Details Date Type Department Care Team (Late st Contact Info) Description 07/12/2020 Refill [facility] Medical [facility] - Rheumatology [address] [place] [address] Gloria Smith MD [address] [place] [phone] MEDICATION REFILL; MEDICATION REFILL Social History Tobacco [...] COVID-19? No / Unsure 06/29/2020 11:44 AM PART TIME documented as of this encounter Miscellaneous Notes * Telephone Encounter - Arian Fernando RN - 07/13/2020 8:59 AM CDT NON-BIOLOGIC REFILL REQUEST Last OV: 06/29/2020 Next Appointment: 08/24/2020 Last Fill: Pantoprazole- 04/05/2020 Gabapentin- 01/21/2020 Prednisone- 10/23/2019 Recent Labs Component Name 06/29/20 1410 05/04/20 [...] Telephone Encounter - Dixie Beard LPN - 07/13/2020 8:42 AM CDT LRF : 04/05 JINA : 06/29 Next OV : 08/24 documented in this encounter Plan of Treatment Upcoming Encounters Date Type Department Care Team (Late st Contact Info) Description 06/03/2024 1:00 PM PART TIME Appointment [facility] - Rheumatology [address] [place], [place] [phone] 06/03/2024 2:00 PM PART TIME Office Visit [facility] - Rheumatology [address] [place] [address] Gloria Smith MD [address] [place] [phone] documented as of this encounter Visit Diagnoses Not on filedocumented in this encounter Care Teams Process Equipment Operator Relationship Specialty Start Date End Date Tomas Hyman MD [address] [facility] [address] [place] [address] PCP - General Family Medicine 09/05/18 Isidro Heredia MD Rheumatology 02/09/11 documented as of this encounter
--- OUTSIDE RECORDS SUMMARY | 2024-05-03 04:05 | XMS_ITS | Encounter Summary ---
Author Organization [facility] Address [address] [facility] [place] [address] Care Team Providers Care Electronics Technician Name Role Phone Isidro Heredia MD Unavailable [phone] Tomas Hyman MD Primary Care Provider [phone] Encounter Details Date Type Department Care Team (Late st Contact Info) Description 06/29/2020 1:00 PM FILM DEVELOPING MACHINE OPERATOR Office Visit [facility] Medical [facility] - Rheumatology [address] [place] [address] Gloria Smith MD [address] [place] [phone] Rheumatoid arthritis of multiple sites with [...] COVID-19? No / Unsure 06/29/2020 11:44 AM FILM DEVELOPING MACHINE OPERATOR documented as of this encounter Last Filed Vital Signs Vital Sign Reading Time Taken Comments Blood Pressure 130/74 06/29/2020 12:56 PM FILM DEVELOPING MACHINE OPERATOR Pulse 79 06/29/2020 12:56 PM FILM DEVELOPING MACHINE OPERATOR Temperature 36.6 ??C (97.9 ??F) 06/29/2020 12:[address] Respiratory Rate - - Oxygen Saturation - - Inhaled Oxygen Concentration - - Weight 105.7 kg (233 lb) 06/29/2020 12:56 PM FILM DEVELOPING MACHINE OPERATOR Height 177.8 cm (5' 10 ) 06/29/2020 12:56 PM FILM DEVELOPING MACHINE OPERATOR Body Mass Index 33.43 06/29/2020 12:56 PM FILM DEVELOPING MACHINE OPERATOR documented in this encounter Progress Notes * Gloria Smith MD - 06/29/2020 1:11 PM CST CHIEF COMPLAINTS: Follow-up on rheumatoid [...] in 2009, rf 10.2) Last seen on April 06, 2020. He has been doing fine. Complains of right shoulder pain worse with use, left ankle pain, and chronic pain and swelling in both hands. Morning stiffness lasts for 1 hr and improves on a warm shower and medications. Having more lower back pain with radiation to the right lower extremity lately, and has scheduled to have epidural injection. Denies fever, chills, recent infection, oral ulcer, nausea. Medication history: mtx 2004-present Remicade 10/2004-08/02/2005 lost [...] except as per HPI. PHYSICAL EXAM: BP 130/74 Pulse 79 Temp 97.9 ??F (36.6 ??C) Ht 1.778 m (5' 10 ) Wt 105.7 kg (233 lb) BMI 33.43 kg/m2 General: in no acute distress. HEENT: anicteric sclera, no conjunctival injection, PERRL, no oral ulcers. Neck: supple, nontender, no lymphadenopathy Chest: nontender. Abdomen: soft, nontender Extremities: no peripheral swelling, clubbing or cyanosis Skin: No rash Neurologic: Moves all extremities MSK: Mild tenderness and fullness in wrists, MCP, PIP joints. Tenderness in right shoulder, left ankle. LABORATORY: Recent Labs Component Name 05/04/20 1452 02/06/20 1332 08/29/19 1245 WBC 8.7 9.4 8.3 RBC 4.27 4.28 4.39 HGB 13.0 12.8 13.1 HCT 40.8 40.7 39.8 MCV 95.6 95.1 91 MCHC 31.9 31.4 32.9 PLTCOUNT 188 170 221 MONOCYTPCT 7.6 7.7 9 EOSINPCT 5.2 11.5* 5 LYMPHABS 3.62 3.14 3.9* MONOCYTABS 0.66 0.72 0.8 BASOABS 0.07 0.13* 0.1 IMMGRANSABS 0.02 0.02 0.0 Recent Labs Component Name 05/04/20 1452 02/06/20 1332 09/26/19 1318 08/29/19 1245 SODIUM 137 139 137 140 POTASSIUM 4.3 3.8 4.4 4.2 CHLORIDE 100 103 102 100 CO2 27 27 27 23 BUN 13 18 17 20 CREATININE 1.13 1.22 1.14 1.57* GLUCOSE 108* 106* 98 94 CALCIUM 9.4 9.0 8.7 9.4 ALBUMIN 4.3 4.2 - 4.3 ALKPHOS 63 68 - 78 ALT 25 22 - 22 AST 25 25 - 22 TBIL 0.6 0.6 - 0.4 TPROT 7.0 6.8 - 7.1 EGFR >60 >60 >60 49* Recent Labs Component Name 02/06/20 1332 03/06/19 [...] 10.2, esr-, crp) Follow-up for inflammatory arthritis. 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 States that Remicade has never worked great but it does help to some degree. Rheumatoid arthritis - switch methotrexate to leflunomide 20 mg. Discussed potential side effects including infection, liver toxicity, bone marrow suppression, diarrhea. - continue Celebrex, prednisone, infliximab. Next options will be Simponi or Cimzia. - repeat CBC, CMP, ESR, CRP - return to clinic in 2 months Chronic neck and back pain - follows with Pain Management and received epidural injections. Off regular Percocet since July,. Osteoporosis - Will repeat DEXA bone density scan - took alendronate from [id number]. DEVELOPING MACHINE OPERATOR documented in this encounter Plan of Treatment Upcoming Encounters Date Type Department Care Team (Late st Contact Info) Description 06/03/2024 1:00 PM FILM DEVELOPING MACHINE OPERATOR Appointment [facility] - Rheumatology [address] [place] [phone] 06/03/2024 2:00 PM FILM DEVELOPING MACHINE OPERATOR Office Visit [facility] - Rheumatology [address] [place] [address] Gloria Smith MD [address] [place] [phone] documented as of this encounter Procedures Procedure Name Priority Date/Time Associated Diagnosis Comments C-REACTIVE PROTEIN Routine 06/29/2020 2: 10 PM FILM DEVELOPING MACHINE OPERATOR 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 factor (HCC) ERYTHROCYTE SEDIMENTATION RATE Routine 06/29/2020 2:10 PM FILM DEVELOPING MACHINE OPERATOR 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 factor (HCC) CBC W AUTO DIFFERENTIAL Routine 06/29/2020 2:10 PM FILM DEVELOPING MACHINE OPERATOR 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 factor (HCC) COMPREHENSIVE METABOLIC PANEL Routine 06/29/2020 2:10 PM FILM DEVELOPING MACHINE OPERATOR 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 factor (HCC) documented in this encounter Results * C-REACTIVE PROTEIN (06/29/2020 2:10 PM FILM DEVELOPING MACHINE OPERATOR) C-Reactive Protein <0.20 <=0.50 mg/dL [facility] INSURANCE BILL Blood BLOOD SPECIMEN / Unknown 06/29/2020 2:10 PM FILM DEVELOPING MACHINE OPERATOR 06/29/2020 Narrative Resulting Agency Comment Lab Testing performed at: [place] [address] ?? [facility] [id number] Gloria Smith MD LAB - CHEMISTRY ORDE RABLES Performing Organization Address City/[facility]/ZIP Co de Phone Number [facility] INSURANCE BILL [address] [place] [address] * ERYTHROCYTE SEDIMENTATION RATE (06/29/2020 2:10 PM FILM DEVELOPING MACHINE OPERATOR) Erythrocyte Sedimentation Rate Westergren 13 0 - 20 MM/HR [facility] INSURANCE BILL Blood BLOOD SPECIMEN / Unknown 06/29/2020 2:10 PM FILM DEVELOPING MACHINE OPERATOR 06/29/2020 Narrative Resulting Agency Comment Lab Testing performed at: [address] ?? [facility] [id number] Gloria Smith MD LAB - HEMATOLOGY ORD ERABLES Performing Organization Address City/[facility] Co de Phone Number [facility] INSURANCE BILL [address] [place] [address] * COMPREHENSIVE METABOLIC PANEL (06/29/2020 2:10 PM FILM DEVELOPING MACHINE OPERATOR) Glucose 103 70 - 105 mg/dL [facility] INSURANCE BILL BUN 20 8.4 - 25.7 mg/dL [facility] INSURANCE BILL Creatinine 1.18 0.72 - 1.25 mg/dL [facility] INSURANCE BILL eGFR by MDRD >60 >60 mL/min/1.7 3m2 [facility] INSURANCE BILL eGFR by MDRD >60 >60 mL/min/1.7 3m2 [facility] INSURANCE BILL Sodium 140 136 - 145 mmol/L [facility] INSURANCE BILL Potassium 4.3 3.5 - 5.1 mmol/L [facility] INSURANCE BILL Chloride 105 98 - 107 mmol/L [facility] INSURANCE BILL CO2 23 23 - 31 mmol/L [facility] INSURANCE BILL Calcium 9.1 8.4 - 10.4 mg/dL [facility] INSURANCE BILL Protein Total 6.8 6.4 - 8.3 gm/dL [facility] INSURANCE BILL Albumin 4.1 3.5 - 5.2 gm/dL [facility] INSURANCE BILL Bilirubin Total 0.5 0.2 - 1.2 mg/dL [facility] INSURANCE BILL Comment:Attention clinician: Reference Range change. Alkaline Phosphatase 61 40 - 150 U/L [facility] INSURANCE BILL Comment:Attention clinician: Reference Range change. AST 21 5 - 34 U/L [facility] INSURANCE BILL ALT 19 0 - 61 U/L [facility] INSURANCE BILL Blood BLOOD SPECIMEN / Unknown 06/29/2020 2:10 PM FILM DEVELOPING MACHINE OPERATOR 06/29/2020 Narrative Resulting Agency Comment Lab Testing performed at: [facility] [address] [address] ?? [facility] [id number] Gloria Smith MD LAB - CHEMISTRY MARII ARAUJO [facility] INSURANCE BILL [address] [place] [address] * (ABNORMAL) CBC WITH DIFFERENTIAL (06/29/2020 2:10 PM FILM DEVELOPING MACHINE OPERATOR) WBC 8.6 4.4 - 10.7 x10E9/L [facility] INSURANCE BILL RBC 4.04 3.80 - 5.40 x10E12/L [facility] INSURANCE BILL Hemoglobin 12.3 12.0 - 17.6 gm/dL [facility] INSURANCE BILL Hematocrit 38.3 35.2 - 51.7 % [facility] INSURANCE BILL MCV 94.8 80.7 - 98.3 fl [facility] INSURANCE BILL MCH 30.4 26.7 - 34.0 pg [facility] INSURANCE BILL MCHC 32.1 30.8 - 35.9 gm/dL [facility] INSURANCE BILL RDW 13.8 12.1 - 14.9 % [facility] INSURANCE BILL Platelet Count 180 153 - 416 x10E9/L [facility] INSURANCE BILL Comment:MPV FL BLOOD ([facility]) 1 1.4 fl 9.4-12.9 Granulocytes % 43.6(L) 44.0 - 73.0 % [facility] INSURANCE BILL Lymphocytes % 41.4 20.0 - 43.0 % [facility] INSURANCE BILL Monocytes % 7.7 5.0 - 13.0 % [facility] INSURANCE BILL Eosinophils % 6.2(H) 0.0 - 6.0 % [facility] INSURANCE BILL Basophils % 0.9 0.0 - 2.0 % [facility] INSURANCE BILL Granulocytes Absolute 3.74 2.01 - 7.14 x10E9/L [facility] INSURANCE BILL Lymphocytes Absolute 3.55 1.07 - 3.94 x10E9/L [facility] INSURANCE BILL [...] INSURANCE BILL Blood BLOOD SPECIMEN / Unknown 06/29/2020 2:10 PM FILM DEVELOPING MACHINE OPERATOR 06/29/2020 Narrative Resulting Agency Comment Lab Testing performed at: [address] ?? [facility] [id number] Gloria Smith MD LAB - HEMATOLOGY ORD ERABLES [facility] INSURANCE BILL [address] [place] [address] documented in this encounter Visit Diagnoses Diagnosis 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 factor (HCC)- Primary documented in this encounter Care Teams Electronics Technician Relationship Specialty Start Date End Date Tomas Hyman MD [address] [place] [address] PCP - General Family Medicine 09/05/18 Isidro Heredia MD Rheumatology 02/09/11 documented as of this encounter
--- OUTSIDE RECORDS SUMMARY | 2024-05-03 04:05 | XMS_ITS | Encounter Summary ---
Author Organization [facility] Address [address] [facility] [place] [address] Care Team Providers Care Bullion Weigher Name Role Phone Isidro Heredia MD Unavailable [phone] Tomas Hyman MD Primary Care Provider Encounter Details Date Type Department Care Team (Latest Contact Info) Description 11/16/2020 Travel Social History Tobacco Use Types Packs/Day [...] Contact Info) Description 06/03/2024 1:00 PM SALES SUPPORT REP Appointment [facility] - Rheumatology [address] [place] [address] 06/03/2024 2:00 PM SALES SUPPORT REP Office Visit [facility] - Rheumatology [address] [place] [address] Gloria Smith MD [address] [place] [phone] documented as of this encounter Visit Diagnoses Not on filedocumented in this encounter Care Teams Bullion Weigher Relationship Specialty Start Date End Date Tomas Hyman MD [address] [facility] [address] [place] [address] PCP - General Family Medicine 09/05/18 Isidro Heredia MD Rheumatology 02/09/11 documented as of this encounter
--- OUTSIDE RECORDS SUMMARY | 2024-05-03 04:05 | XMS_ITS | Encounter Summary ---
Author Organization [facility] Address [address] [place] [address] Care Team Providers Care Children'S Minister Name Role Phone Isidro Heredia MD Unavailable [phone] Tomas Hyman MD Primary Care Provider [phone] Reason for Visit * Reason Comments Arthritis follow up Encounter Details Date Type Department Care Team (Late st Contact Info) Description 02/06/2020 11:40 AM CDT Office Visit [facility] - Rheumatology [address] [place] [address] Gloria Smith MD [address] [place] [phone] Rheumatoid arthritis of multiple sites with [...] Sign Reading Time Taken Comments Blood Pressure 153/78 02/06/2020 12:11 PM CDT Pulse 78 02/06/2020 12:11 PM CDT Temperature 36.8 ??C (98.2 ??F) 02/06/2020 12:11 PM C DT Respiratory Rate - - Oxygen Saturation - - Inhaled Oxygen Concentration - - Weight 103.4 kg (228 lb) 02/06/2020 12:11 PM CDT Height - - Body Mass Index 32.71 11/10/2019 10:34 AM CDT documented in this encounter Progress Notes * Gloria Smith MD - 02/10/2020 12:22 PM CDT HLA B27 negative. * Gloria Smith MD - 02/06/2020 11:40 AM CDT CHIEF COMPLAINTS: Follow-up on rheumatoid [...] in 2009, rf 10.2) Last seen on November 10, 2019. His last Remicade infusion was on that day. He had UTI, then fell and had wound infection from a foreign body. Had several courses of antibiotics. Follows with Wound Care.Left thigh wound is improving and healing. He denies fever, chills, skin rash, dysuria, abdominal pain, diarrhea. Stopped methotrexate in November due to infections. Rheumatoid arthritis has flared up while off Remicade and methotrexate. Has pain, swelling, stiffness in knees, ankles,. Has a new synovial cyst on the right palm. States that when he developed UTI in November, he had severe low back andleg pain, which improved significantly after antibiotic treatment. Medication history: mtx 2004-present Remicade 10/2004-08/02/2005 lost [...] except as per HPI. PHYSICAL EXAM: BP 153/78 Pulse 78 Temp 98.2 ??F (36.8 ??C) Wt 103.4 kg (228 lb) BMI 32.71 kg/m2 General: in no acute distress. HEENT: anicteric sclera, no conjunctival injection, PERRL, no oral ulcers. Neck: supple, nontender, no lymphadenopathy Chest: nontender. Abdomen: soft, nontender Extremities: no peripheral swelling, clubbing or cyanosis Skin: Faint erythematous papules in dermatome of the right-sided chest wall and back. Neurologic: Moves all extremities MSK: Tenderness and swelling in wrists, MCP and PIP joints bilaterally. A small tender nodule in the right palm. Tenderness and some swelling in knees, ankles. LABORATORY: Recent Labs Component Name 08/29/19 1245 03/06/19 1134 10/24/18 1000 WBC 8.3 9.4 8.6 RBC 4.39 4.18 3.81* HGB 13.1 12.6 11.8* HCT 39.8 41.7 35.9* MCV 91 99.8* 94 MCHC 32.9 30.2* 32.9 PLTCOUNT 221 194 160 MONOCYTPCT 9 6.4 9 EOSINPCT 5 2.2 6 LYMPHABS 3.9* 2.42 2.7 MONOCYTABS 0.8 0.60 0.7 BASOABS 0.1 0.05 0.1 IMMGRANSABS 0.0 0.04 0.0 Recent Labs Component Name 09/26/19 1318 08/29/19 1245 03/06/19 1134 10/24/18 1000 SODIUM 137 140 139 142 POTASSIUM 4.4 4.2 4.3 4.4 CHLORIDE 102 100 103 104 CO2 27 23 28 23 BUN 17 20 16 14 CREATININE 1.14 1.57* 1.25 1.17 GLUCOSE 98 94 81 95 CALCIUM 8.7 9.4 9.3 9.3 ALBUMIN - 4.3 4.3 4.2 ALKPHOS - 78 56 54 ALT - 22 23 25 AST - 22 22 25 TBIL - 0.4 0.4 0.4 TPROT - 7.1 6.9 6.4 EGFR >60 49* 60* 69 Recent Labs Component Name 03/06/19 1134 04/07/15 1630 08/12/14 1408 CRP 0.31 <0.29 1.6 Recent Labs Component Name 03/06/19 1134 10/24/18 1000 07/11/18 0930 SEDRATE 6 8 14 IMAGINGS: 07/03/19 MRI L spine: L4-L5 moderate facet arthropathy, central canal and right neural foraminal stenosis. Lessor spondylosis other levels. ASSESSMENT & PLAN: Current medication: Methotrexate 10 mg weekly. It was stopped in November due to infection. Folic acid 1 mg daily. Remicade 600 mg every 6 weeks. Last infusion on November 10, 2019. Prednisone 5 mg 59-year-old white male with: Seropositive rheumatoid arthritis Osteoporosis Chronic back pain and lumbar radiculopathy High-risk medication (Raquel 1:160, ccp 22+ in 2009, rf 10.2, esr-, crp) Follow-up for rheumatoid arthritis. Rheumatoid arthritis is flaring up while off DMARDs because of recent infections. Recent UTI exacerbated low back and the leg pain. This raises questions of seronegative spondyloarthropathy. - resume methotrexate 10 mg per week. - continue Remicade 600 mg every 4 weeks. However, if by 4 weeks the left thigh wound is still not completely healed, would postpone the infusion to 6 weeks from now. - continue prednisone 5 mg - repeat CBC, CMP, ESR, CRP, HLA B27. - x-ray of SI joints - return to clinic in 3 months Right palm synovial cyst - if no improvement with DMARDs, can try steroid injection at his next visit, or refer to orthopedic surgeon. He has had similar nodules removed in the past. Chronic neck and back pain - follows with Pain Management and received epidural injections. - Off Percocet since July,. Osteoporosis - repeat DEXA bone density scan - took alendronate from [id number]. documented in this encounter Plan of Treatment Upcoming Encounters Date Type Department Care Team (Late st Contact Info) Description 06/03/2024 1:00 PM DYNAMOMETER TESTER ENGINE Appointment [facility] - Rheumatology [address] [place] [address] 06/03/2024 2:00 PM DYNAMOMETER TESTER ENGINE Office Visit [facility] - Rheumatology [address] [place] [address] [phone] Gloria Smith MD [address] [place] [phone] documented as of this encounter Procedures Procedure Name Priority Date/Time Associated Diagnosis Comments C-REACTIVE PROTEIN Routine 02/06/2020 1: 32 PM CDT 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 factor (HCC) HLA TYPING B27 Routine 02/06/2020 1:32 PM CDT 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 factor (HCC) ERYTHROCYTE SEDIMENTATION RATE Routine 02/06/2020 1:32 PM CDT 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 factor (HCC) CBC W AUTO DIFFERENTIAL Routine 02/06/2020 1:32 PM CDT 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 factor (HCC) COMPREHENSIVE METABOLIC PANEL Routine 02/06/2020 1:32 PM CDT 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 factor (HCC) documented in this encounter Results * XR SI JOINTS 3VW OR MORE (02/06/2020 1:46 PM CDT) Anatomical Region Laterality Modality Pelvis, Lower Extremity [facility] 02/06/2020 2:55 PM CDT Impressions 02/06/2020 [...] B27 (02/06/2020 1:32 PM CDT) HLA-B27 Negative [facility] INSURANCE BILL Comment: HLA-B*27 Negative B27 allele interpretation for all loci based on IMGT/HLA database version 3.38 This test was developed and its performance characteristics determined by [facility]. ??It has not been cleared or approved by the Food and Drug Administration. [facility] CLIA ID Number [id number] ? . This test was performed using PCR (Polymerase Chain Reaction)/SSOP (Sequence Specific Oligonucleotide Probes) technique. ??SBT (Sequence Based Typing) and/or SSP (Sequence Specific Primers) may be used as supplemental methods when necessary. ??Please contact [facility] Customer Service at if you have any questions. ? . Director of [facility] Laboratory Dr Frankie Salinas, PhD Blood BLOOD SPECIMEN / Unknown 02/06/2020 1:32 PM CDT 02/06/2020 Narrative Resulting Agency Comment Lab Testing performed at: [place] [id number] [facility] ??Critical access hospital [id number] Gloria Smith MD LAB - CHEMISTRY MARII ARAUJO Performing Organization Address City/[facility]/ZIP Co de Phone Number [facility] INSURANCE BILL [address] [place] [address] * C-REACTIVE PROTEIN (02/06/2020 1:32 PM CDT) C-Reactive Protein 0.21 <=0.50 mg/dL [facility] INSURANCE BILL Blood BLOOD SPECIMEN / Unknown 02/06/2020 1:32 PM CDT 02/06/2020 Narrative Resulting Agency Comment Lab Testing performed at: [facility] [place] [address] [place] ?? [facility] [phone] Gloria Smith MD LAB - CHEMISTRY MARII ARAUJO [facility] INSURANCE BILL [address] [place] [address] * ERYTHROCYTE SEDIMENTATION RATE (02/06/2020 1:32 PM CDT) Erythrocyte Sedimentation Rate Westergren 12 0 - 20 MM/HR [facility] INSURANCE BILL Blood BLOOD SPECIMEN / Unknown 02/06/2020 1:32 PM CDT 02/06/2020 Narrative Resulting Agency Comment Lab Testing performed at: [place] [address] [address] ?? [place] [id number] Gloria Smith MD LAB - HEMATOLOGY ORD ERABLES [facility] INSURANCE BILL [address] [place] [address] * (ABNORMAL) COMPREHENSIVE METABOLIC PANEL (02/06/2020 1:32 PM CDT) Glucose 106(H) 70 - 105 mg/dL [facility] INSURANCE BILL BUN 18 8.4 - 25.7 mg/dL [facility] INSURANCE BILL Creatinine 1.22 0.72 - 1.25 mg/dL [facility] INSURANCE BILL eGFR by MDRD >60 >60 mL/min/1.7 3m2 [facility] INSURANCE BILL eGFR by MDRD >60 >60 mL/min/1.7 3m2 [facility] INSURANCE BILL Sodium 139 136 - 145 mmol/L [facility] INSURANCE BILL Potassium 3.8 3.5 - 5.1 mmol/L [facility] INSURANCE BILL [...] 1.2 mg/dL [facility] INSURANCE BILL Alkaline Phosphatase 68 39 - 139 U/L [facility] INSURANCE BILL AST 25 5 - 34 U/L [facility] INSURANCE BILL ALT 22 0 - 61 U/L [facility] INSURANCE BILL Blood BLOOD SPECIMEN / Unknown 02/06/2020 1:32 PM CDT 02/06/2020 Narrative Resulting Agency Comment Lab Testing performed at: [facility] [address] [address] ?? [facility] [phone] Gloria Smith MD LAB - CHEMISTRY MARII ARAUJO [facility] INSURANCE BILL [address] [place] [address] * (ABNORMAL) CBC WITH DIFFERENTIAL (02/06/2020 1:32 PM CDT) WBC 9.4 4.4 - 10.7 x10E9/L [facility] INSURANCE BILL RBC 4.28 3.80 - 5.40 x10E12/L [facility] INSURANCE BILL Hemoglobin 12.8 12.0 - 17.6 gm/dL [facility] INSURANCE BILL Hematocrit 40.7 35.2 - 51.7 % [facility] INSURANCE BILL MCV 95.1 80.7 - 98.3 fl [facility] INSURANCE BILL MCH 29.9 26.7 - 34.0 pg [facility] INSURANCE BILL MCHC 31.4 30.8 - 35.9 gm/dL [facility] INSURANCE BILL RDW 13.9 12.1 - 14.9 % [facility] INSURANCE BILL Platelet Count 170 153 - 416 x10E9/L [facility] INSURANCE BILL Comment:MPV FL BLOOD (SSM) 1 1.5 fl 9.4-12.9 Granulocytes % 45.8 44.0 - 73.0 % [facility] INSURANCE BILL Lymphocytes % 33.4 20.0 - 43.0 % [facility] INSURANCE BILL Monocytes % 7.7 5.0 - 13.0 % [facility] INSURANCE BILL Eosinophils % 11.5(H) 0.0 - 6.0 % [facility] INSURANCE BILL Basophils % 1.4 0.0 - 2.0 % [facility] INSURANCE BILL Granulocytes Absolute 4.31 2.01 - 7.14 x10E9/L [facility] INSURANCE BILL Lymphocytes Absolute 3.14 1.07 - 3.94 x10E9/L [facility] INSURANCE BILL Monocytes Absolute 0.72 0.26 - 1.07 x10E9/L [facility] INSURANCE BILL Eosinophils Absolute 1.08(H) 0 - 0.47 x10E9/L [facility] INSURANCE BILL Basophils Absolute 0.13(H) 0 - 0.08 x10E9/L [facility] INSURANCE BILL Immature Granulocytes 0.2 0 - 1 % [facility] INSURANCE BILL Immature Granulocytes Absolute 0.02 0.00 - 0.06 x10E9/L [facility] INSURANCE BILL nRBC 0 /100 WBC [facility] INSURANCE BILL Blood BLOOD SPECIMEN / Unknown 02/06/2020 1:32 PM CDT 02/06/2020 Narrative Resulting Agency Comment Lab Testing performed at: [address] ?? [facility] [id number] Gloria Smith MD LAB - HEMATOLOGY ORD ERABLES [facility] INSURANCE BILL [address] [place] [address] documented in this encounter Visit Diagnoses Diagnosis 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 factor (HCC)- Primary 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 factor (HCC) documented in this encounter Care Teams Children'S Minister Relationship Specialty Start Date End Date Tomas Hyman MD [address] [facility] [address] [place] [address] PCP - General Family Medicine 09/05/18 Isidro Heredia MD Rheumatology 02/09/11 documented as of this encounter
--- OUTSIDE RECORDS SUMMARY | 2024-05-03 04:05 | XMS_ITS | Encounter Summary ---
Author Organization [facility] Address [address] [facility] [place] [address] Care Team Providers Care Motion Graphics Designer Name Role Phone Isidro Heredia MD Unavailable [phone] Tomas Hyman MD Primary Care Provider [phone] Reason for Visit * Reason Onset Date Comments Question 04/08/2020 Encounter Details Date Type Department Care Team (Late st Contact Info) Description 04/08/2020 Telephone [facility] Orthopedics [address] [place] [phone] Nini Han MD [address] [place] [phone] Question Social History Tobacco Use Types [...] COVID-19? No / Unsure 04/06/2020 1:43 PM SERVICE ASSISTANT documented as of this encounter Miscellaneous Notes * Telephone Encounter - Eryn Matos - 04/08/2020 12:30 PM CST LEFT A MESSAGE ASKING CHALINO CASEY TO RETURN MY CALL TO SCHEDULE AN APPOINTMENT ICE ASSISTANT * Telephone Encounter - Eryn Matos Shahnaz - 04/08/2020 12:30 PM CST ----- Message from Gloria Smith MD sent at 04/06/2020 3:27 PM SERVICE ASSISTANT ----- Regarding: referral to dr Ortega Referring him to Dr. Ortega. Dx: right palm ganglion cyst. ICE ASSISTANT documented in this encounter Plan of Treatment Upcoming Encounters Date Type Department Care Team (Late st Contact Info) Description 06/03/2024 1:00 PM SERVICE ASSISTANT Appointment [facility] - Rheumatology [address] [place] [address] 06/03/2024 2:00 PM SERVICE ASSISTANT Office Visit [facility] - Rheumatology [address] [place] [address] Gloria Smith MD [address] [place] [phone] documented as of this encounter Visit Diagnoses Not on filedocumented in this encounter Care Teams Motion Graphics Designer Relationship Specialty Start Date End Date Tomas Hyman MD [address] [facility] [address] [place] [address] PCP - General Family Medicine 09/05/18 Isidro Heredia MD Rheumatology 02/09/11 documented as of this encounter
--- OUTSIDE RECORDS SUMMARY | 2024-05-03 04:05 | XMS_ITS | Encounter Summary ---
Author Organization [facility] Address [address] [place] [address] Care Team Providers Care Gas Operator Name Role Phone Isidro Heredia MD Unavailable Tomas Hyman MD Primary Care Provider [phone] Reason for Visit * Reason Onset Date Comments Question 09/13/2020 Encounter Details Date Type Department Care Team (Late st Contact Info) Description 09/13/2020 Telephone [facility] - Rheumatology [address] [place] [address] Gloria Smith MD [address] [place] [phone] Question Social History Tobacco Use Types [...] Telephone Encounter - Gloria Smith MD - 09/13/2020 7:19 PM CDT I plan to change the infusion next time since we modified the oral meds last time. * Telephone Encounter - Carey Loza - 09/13/2020 10:51 AM CDT Patient is due to come in to the office next week for his remicade infusion and is questioning if he will be getting the Remicade or the drug you discussed with him at his last office visit. He thinks the drug was Simponi but I advised that I had not received any new direction. Is he to change thisinfusion? Please advise and I will let the patient know. documented in this encounter Plan of Treatment Upcoming Encounters Date Type Department Care Team (Late st Contact Info) Description 06/03/2024 1:00 PM NAILING MACHINE OPERATOR AUTOMATIC Appointment [facility] - Rheumatology [address] [place] [phone] 06/03/2024 2:00 PM NAILING MACHINE OPERATOR AUTOMATIC Office Visit [facility] - Rheumatology [address] [place] [address] [phone] Gloria Smith MD [address] [place] [phone] documented as of this encounter Visit Diagnoses Not on filedocumented in this encounter Care Teams Gas Operator Relationship Specialty Start Date End Date Tomas Hyman MD [address] [facility] [address] [place] [address] PCP - General Family Medicine 09/05/18 Isidro Heredia MD Rheumatology 02/09/11 documented as of this encounter
--- OUTSIDE RECORDS SUMMARY | 2024-05-03 04:05 | XMS_ITS | Encounter Summary ---
Author Organization [facility] Address [address] [facility] [place] [address] Care Team Providers Care Law Examiner Name Role Phone Isidro Heredia MD Unavailable [phone] Tomas Hyman MD Primary Care Provider [phone] Reason for Visit * Reason Comments Follow-up Encounter Details Date Type Department Care Team (Late st Contact Info) Description 02/08/2021 2:40 PM CDT Office Visit [facility] - Rheumatology [address] [place] [address] Gloria Smith MD [address] [place] [phone] 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 Please call [facility] for result. * Gloria Smith MD - 02/08/2021 5:29 PM CDT CHIEF COMPLAINTS: Follow-up on rheumatoid [...] in 2009, rf 10.2) Last seen on October 19, 2020. He has had 3 Simponi infusions so far, the last 1 today. States that Simponi seem to work about the same as Remicade. However, he has been having more pain for the last few weeks. Has poor appetite, and lost some weight. Has not had much motivation of doing things. Stayed home for the last 3 weeks before today's appointment. Chronic pain hands, knees, shoulders, lower back. Lower back pain seems to be getting worse and he follows with Pain Management. Lumbar surgery was recommended but he is not interested. Denies fever, chills, recent infection. Medication history: simponi 10/2020-present mtx 2005-06/2020, inadequate, 10/2020-present SSZ 08/2020, GI SEs AZA [...] except as per HPI. PHYSICAL EXAM: BP 110/71 (BP SITE: LEFT ARM, BP POSITION: SITTING, BP CUFF SIZE: 11) Pulse 71 Ht 1.778 m (5' 10 ) Wt 99.6 kg (219 lb 9.6 oz) SpO2 96% BMI 31.51 kg/m2 General: in no acute distress. HEENT: anicteric sclera, no conjunctival injection, PERRL, no oral ulcers. Neck: supple, nontender, no lymphadenopathy Chest: nontender. Abdomen: soft, nontender Extremities: no peripheral swelling, clubbing or cyanosis Skin: No rash Neurologic: Moves all extremities MSK: No significant tenderness or swelling in wrists, MCP, PIP joints. Some tenderness in the shoulders, knees. Swelling LABORATORY: Recent Labs Component Name 10/19/20 1540 08/24/20 1233 06/29/20 1410 WBC 9.5 6.3 8.6 RBC 4.50 4.02 4.04 HGB 13.7 12.1 12.3 HCT 40.8 38.3 38.3 MCV 90.7 95.3 94.8 MCHC 33.6 31.6 32.1 PLTCOUNT 179 156 180 MONOCYTPCT 7.9 9.3 7.7 EOSINPCT 4.0 7.5* 6.2* LYMPHABS 3.56 2.48 3.55 MONOCYTABS 0.75 0.58 0.66 BASOABS 0.08 0.08 0.08 IMMGRANSABS 0.02 0.01 0.02 Recent Labs Component Name 10/19/20 1540 08/24/20 1233 06/29/20 1410 SODIUM 137 139 140 POTASSIUM 4.0 4.0 4.3 CHLORIDE 100 106 105 CO2 24 24 23 BUN 22 16 20 CREATININE 1.18 1.14 1.18 GLUCOSE 100 116* 103 CALCIUM 9.2 8.6 9.1 ALBUMIN 4.2 4.0 4.1 ALKPHOS 70 65 61 ALT 16 15 19 AST 18 21 21 TBIL 0.6 0.5 0.5 TPROT 6.6 6.6 6.8 EGFR >60 >60 >60 Recent Labs Component Name 06/29/20 1410 02/06/20 1332 03/06/19 1134 CRP <0.20 0.21 0.31 Recent Labs Component Name 06/29/20 1410 02/06/20 1332 03/06/19 1134 SEDRATE 13 12 6 ASSESSMENT & PLAN: Current medication: Simponi 200mg [...] crp) Follow-up for rheumatoid arthritis. Has not noticed much improvement with addition of methotrexate and switching from Remicade to Simponi. However, the hand exam is better today, without obvious synovitis. He is feeling down for the last few weeks and lost some weight. This may contribute to him not feeling well lately. Rheumatoid arthritis - Switch methotrexate from p.o. to subcutaneous injection and stay on the 15 mg per week due to mild kidney function impairment. Subcutaneous injection for better efficacy. - Continue Simponi infusion for longer period of time - Continue Celebrex, prednisone - Repeat CBC, CMP, inflammatory markers - Return to clinic in 2 months Fatigue - Check vitamin B12 and vitamin-D level due to significant fatigue Chronic neck and back pain - follows with Pain Management and received epidural injections. Off regular Percocet since July,. Declined lumbar surgery. Osteoporosis - Will repeat DEXA bone density scan - took alendronate from [id number]. The total time spent today was 40 minutes performing chart prep, review of data and visit with the patient. documented in this encounter Plan of Treatment Upcoming Encounters Date Type Department Care Team (Late st Contact Info) Description 06/03/2024 1:00 PM AMF MECHANIC Appointment [facility] - Rheumatology [address] [place] [address] 06/03/2024 2:00 PM AMF MECHANIC Office Visit [facility] - Rheumatology [address] [place] [address] Gloria Smith MD [address] [place] [phone] Scheduled Orders Name Type Priority Associated Diagnoses Orde r Schedule VITAMIN D 25-HYDROXY Lab Routine 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 factor (HCC) Fatigue, unspecified type Ordered: 02/08/2021 documented as of this encounter Procedures Procedure Name Priority Date/Time Associated Diagnosis Comments REF LAB-ABN TEST REFUSAL 02/08/2021 4:45 PM CDT C-REACTIVE PROTEIN Routine 02/08/2021 4: 45 PM CDT 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 factor (HCC) ERYTHROCYTE SEDIMENTATION RATE Routine 02/08/2021 4:45 PM CDT 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 factor (HCC) CBC W AUTO DIFFERENTIAL Routine 02/08/2021 4:45 PM CDT 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 factor (HCC) COMPREHENSIVE METABOLIC PANEL Routine 02/08/2021 4:45 PM CDT Rheumatoid arthritis of multiple sites with negative rheumatoid factor (HCC) VITAMIN B12 Routine 02/08/2021 4:45 PM CDT Rheumatoid arthritis of multiple sites with negative rheumatoid factor (HCC) Fatigue, unspecified type documented in this encounter Results * REF LAB-ABN TEST REFUSAL (02/08/2021 4:45 PM CDT) Advance Beneficiary Notice Option 3 [facility] INS[facility] B[facility] Comment: One or more tests [...] Resulting Agency Comment Lab Testing performed at: [facility] [place] [address] [facility] ??Formerly [facility], [facility] [phone] Gloria Smith MD LAB - CHEMISTRY MARII ARAUJO [facility] INSURANCE BILL [address] [place] [address] * C-REACTIVE PROTEIN (02/08/2021 4:45 PM CDT) C-Reactive Protein <1 0 - 10 mg/L [facility] INSURANCE BILL Blood BLOOD SPECIMEN / Unknown 02/08/2021 4:45 PM CDT 02/08/2021 Narrative Resulting Agency Comment Lab Testing performed at: [facility] [place] [address] ??Formerly [facility], [facility] [phone] Gloria Smith MD LAB - CHEMISTRY ORDE RABLES Performing Organization Address City/[facility]/ZIP Co de Phone Number [facility] INSURANCE BILL [address] [place] [address] * ERYTHROCYTE SEDIMENTATION RATE (02/08/2021 4:45 PM CDT) Erythrocyte Sedimentation Rate Westergren 5 0 - 30 mm/hr [facility] INSURANCE BILL Blood BLOOD SPECIMEN / Unknown 02/08/2021 4:45 PM CDT 02/08/2021 Narrative Resulting Agency Comment Lab Testing performed at: [facility] [place] [address] ??Formerly [facility], [facility] [phone] Gloria Smith MD LAB - HEMATOLOGY ORD ERABLES Performing Organization Address City/[facility]/ZIP Co de Phone Number [facility] INSURANCE BILL [address] [place] [address] * (ABNORMAL) COMPREHENSIVE METABOLIC PANEL (02/08/2021 4:45 PM CDT) Glucose 119(H) 65 - 99 mg/dL [facility] INSURANCE BILL BUN 8 6 - 24 mg/dL [facility] INSURANCE BILL Creatinine 1.13 0.76 - 1.27 mg/dL [facility] INSURANCE BILL eGFR by MDRD 71 >59 mL/min/1.7 3 [facility] INSURANCE BILL eGFR by MDRD 82 >59 mL/min/1.7 3 [facility] INSURANCE BILL Comment: [facility] currently reports eGFR in compliance with the current ??recommendations of the National Kidney Foundation. [facility] will ??update reporting as new guidelines are published from the NKF-ASN ??Task force. BUN/Creatinine Ratio 7(L) 9 - 20 [facility] INSURANCE BILL Sodium 136 134 - 144 mmol/L [facility] INSURANCE BILL Potassium 4.2 3.5 - 5.2 mmol/L [facility] INSURANCE BILL Chloride 97 96 - 106 mmol/L [facility] INSURANCE BILL CO2 26 20 - 29 mmol/L [facility] INSURANCE BILL Calcium 9.4 8.7 - 10.2 mg/dL [facility] INSURANCE BILL Protein Total 6.7 6.0 - 8.5 g/dL [facility] INSURANCE BILL Albumin 4.5 3.8 - 4.9 g/dL [facility] INSURANCE BILL Globulin Total 2.2 1.5 - 4.5 g/dL [facility] INSURANCE BILL Albumin/Globulin Ratio 2.0 1.2 - 2.2 [facility] INSURANCE BILL Bilirubin Total 0.7 0.0 - 1.2 mg/dL [facility] INSURANCE BILL Alkaline Phosphatase 63 44 - 121 IU/L [facility] INSURANCE BILL Comment:Please note refere nce interval change AST 27 0 - 40 IU/L [facility] INSURANCE BILL ALT 20 0 - 44 IU/L [facility] INSURANCE BILL Blood BLOOD SPECIMEN / Unknown 02/08/2021 4:45 PM CDT 02/08/2021 Narrative Resulting Agency Comment Lab Testing performed at: [facility] ??Formerly [facility], [facility] [phone] Gloria Smith MD LAB - CHEMISTRY MARII ARAUJO [facility] INSURANCE BILL [address] [place] [address] * (ABNORMAL) CBC WITH DIFFERENTIAL (02/08/2021 4:45 PM CDT) WBC 7.5 3.4 - 10.8 x10E3/uL [facility] INSURANCE BILL RBC 4.14 4.14 - 5.80 x10E6/uL [facility] INSURANCE BILL Hemoglobin 12.8(L) 13.0 - 17.7 g/dL [facility] INSURANCE BILL Hematocrit 36.6(L) 37.5 - 51.0 % [facility] INSURANCE BILL MCV 88 79 - 97 fL [facility] INSURANCE BILL MCH 30.9 26.6 - 33.0 pg [facility] INSURANCE BILL MCHC 35.0 31.5 - 35.7 g/dL [facility] INSURANCE BILL RDW 13.4 11.6 - 15.4 % [facility] INSURANCE BILL Platelet Count 151 150 - 450 x10E3/uL [facility] INSURANCE BILL Granulocytes % 51 Not Estab. % [facility] INSURANCE BILL Lymphocytes % 37 Not Estab. % [facility] INSURANCE BILL Monocytes % 7 Not Estab. % [facility] INSURANCE BILL Eosinophils % 4 Not Estab. % [facility] INSURANCE BILL Basophils % 1 Not Estab. % [facility] INSURANCE BILL Immature Cells NOT NEEDED [facility] INSURANCE BILL Comment:Ancillary determined the test is not needed. Granulocytes Absolute 3.8 1.4 - 7.0 x10E3/uL [facility] INSURANCE BILL Lymphocytes Absolute 2.8 0.7 - 3.1 x10E3/uL [facility] INSURANCE BILL [...] the test is not needed. Comment Hematology NOT NEEDED [facility] INSURANCE BILL Comment:Ancillary determined the test is not needed. Blood BLOOD SPECIMEN / Unknown 02/08/2021 4:45 PM CDT 02/08/2021 Narrative Resulting Agency Comment Lab Testing performed at: [facility] [address] ??[facility]ly [facility], [facility] [phone] Gloria Smith MD LAB - HEMATOLOGY ORD ERABLES [facility] INSURANCE BILL [address] [place] [address] * (ABNORMAL) VITAMIN B12 (02/08/2021 4:45 PM CDT) Vitamin B12 1,257(H) 232 - 1,245 pg/mL [facility] INSURANCE BILL Blood BLOOD SPECIMEN / Unknown 02/08/2021 4:45 PM CDT 02/08/2021 Narrative Resulting Agency Comment Lab Testing performed at: [facility] [address] ??[facility]ly [facility], [facility] [phone] Gloria Smith MD LAB - CHEMISTRY MARII ARAUJO [facility] INSURANCE BILL [address] [place] [address] documented in this encounter Visit Diagnoses Diagnosis Rheumatoid arthritis of multiple sites with negative rheumatoid factor (HCC)- Primary Fatigue, unspecified type documented in this encounter Care Teams Law Examiner Relationship Specialty Start Date End Date Tomas Hyman MD [address] [place] [address] PCP - General Family Medicine 09/05/18 Isidro Heredia MD Rheumatology 02/09/11 documented as of this encounter
--- OUTSIDE RECORDS SUMMARY | 2024-05-03 04:05 | XMS_ITS | Encounter Summary ---
Author Organization [facility] Address [address] [facility] [place] [place] [address] Care Team Providers Care Wrapper Layer And Examiner Soft Work Name Role Phone Isidro Heredia MD Unavailable [phone] Tomas Hyman MD Primary Care Provider [phone] Reason for Visit * Treatment (Routine) - Closed Specialty Diagnoses / Procedures Referred By Contact Referred To Contact Infusion Therapy Nurse / Rheumatology Diagnoses Rheumatoid arthritis without rheumatoid factor, multiple sites (HCC) Procedures [place] INFLIXIMAB INJECTION Gloria Smith MD [address] [place] [address] [facility] [address] [address] Referral ID Status Reason Start Date Expiration Date Visits Re quested Visits Authorized [id number] Closed 05/04/2020 04/29/2021 12 12 Encounter Details Date Type Department Care Team (Late st Contact Info) Description 10/19/2020 1:54 PM CDT - 10/19/2020 11:59 PM CDT Hospital Encounter [facility] Medical [facility] - Rheumatology [address] [place] [address] Gloria Smith MD [facility] [place] [address] Discharge Disposition: Home or Self [...] Time Taken Comments Blood Pressure 137/72 10/19/2020 2:30 PM CDT Pulse 88 10/19/2020 2:30 PM CDT Temperature 37.1 ??C (98.8 ??F) 10/19/2020 2:30 PM CD T Respiratory Rate 18 10/19/2020 2:30 PM CDT Oxygen Saturation - - Inhaled Oxygen Concentration - - Weight 109.1 kg (240 lb 9.6 oz) 10/19/2020 2:30 PM CDT Height - - Body Mass Index 34.52 08/24/2020 11:16 AM CDT documented in this encounter Discharge Instructions * Discharge Instructions* Jody Sahu RN - 10/19/2020 2:40 PM CDT [place] Rheumatology Post Infusion instructions You have received your infusion treatment today. You can remove your bandage when you get home. Ifyou get a rash from your bandage, tell [...] through Sunday 9-5 call the office at [phone] After hours or on the weekend call the exchange at [phone] If you have had lab work done [...] you and are glad you have chosen [facility] as your provider. Jody Sahu RN documented in this encounter Medications at Time of Discharge Medication Sig Dispensed Refills Start Date End Date atorvastatin (LIPITOR) 40 MG tablet Take 1 (one) tablet by mouth at bedtime kmlqtedihum-faba-xpy ysorb, PF, 0.5-1-0.5 % SOLN Instill 1 [...] once daily 90 tablet 3 04/05/2020 01/17/2021 celecoxib (CELEBREX) 200 MG capsuleIndications:R heumatoid arthritis [...] 11/16/2020 methotrexate 2.5 MG tablet Take 6 (six) [...] Progress Notes * Jody Sahu RN - 10/19/2020 2:38 PM CDT JOSE Deng [id number] 10/19/2020 Diagnosis: Rheumatoid arthritis without rheumatoid factor, multiple sites [M06.09]. Pt denies symptoms of infection or antibiotic use, no open wounds, or recent surgery, or plans for surgery in the next couple of weeks. Pt is aware that we use the 0-10 pain scale to assess discomfort. 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 BP 137/72 Pulse 88 Temp 98.8 ??F Resp 18 Wt 109.1 kg (240 [...] st Contact Info) Description 06/03/2024 1:00 PM PIT HAND Appointment [facility] - Rheumatology [address] [place] [address] 06/03/2024 2:00 PM PIT HAND Office Visit [facility] - Rheumatology [address] [place] [address] Gloria Smith MD [address] [place] [phone] documented as of this encounter Visit [...] at 10-250 mL/hr, Intravenous, CONTINUOUS, Starting on Sun10/19/20 at 1430, Until Sun10/19/20 at 1629, Infuse over a minimum of 2 hours. [...] Use with in-line filter. $ New Bag/Syringe 10/19/2020 2:35 PM CDT 600 mg 135 mL/hr documented in this encounter Care Teams Wrapper Layer And Examiner Soft Work Relationship Specialty Start Date End Date Tomas Hyman MD [address] [place] [address] PCP - General Family Medicine 09/05/18 Isidro Heredia MD Rheumatology 02/09/11 documented as of this encounter
--- OUTSIDE RECORDS SUMMARY | 2024-05-03 04:05 | XMS_ITS | Encounter Summary ---
Author Organization [facility] Address [address] [place] [address] Care Team Providers Care Outboard Motor Tester Name Role Phone Isidro Heredia MD Unavailable [phone] Tomas Hyman MD Primary Care Provider [phone] Encounter Details Date Type Department Care Team (Late st Contact Info) Description 02/06/2020 1:41 PM CDT - 02/06/2020 11:59 PM CDT Hospital Encounter [facility] - Medical Imaging [address] [facility] [place] [address] Gloria Smith MD [address] [place] [phone] Discharge Disposition: Home or Self Care Social [...] PM CDT documented as of this encounter Medications at Time of Discharge Medication Sig Dispensed Refills Start Date End Date atorvastatin (LIPITOR) 40 MG tablet Take 1 (one) tablet by mouth at bedtime yhzhgihlxap-gihl-fz lysorb, PF, 0.5-1-0.5 % SOLN Instill 1 [...] by mouth once daily Seasonal (nov Sept acetaminophen (TYLENOL) 325 MG tablet Take 325 mg by mouth every 4 hours as needed for Fever or Pain Maximum allowable Acetaminophen amount = 4 Grams (4000 mg) / 24 hours. 03/05/2020 aspirin EC (ECOTRIN) 81 MG tablet Take [...] 04/18/2019 01/17/2021 documented as of this encounter Plan of Treatment Upcoming Encounters Date Type Department Care Team (Late st Contact Info) Description 06/03/2024 1:00 PM BRAILLE OPERATOR Appointment [facility] - Rheumatology [address] [place] [address] 06/03/2024 2:00 PM BRAILLE OPERATOR Office Visit [facility] - Rheumatology [address] [place] [address] Gloria Smith MD [address] [place] [phone] documented as of this encounter Procedures Procedure Name Priority Date/Time Associated Diagnosis Comments XR SI JOINTS 3VW OR MORE Routine 02/06/2020 1:46 PM CDT Rheumatoid arthritis of multiple sites with negative rheumatoid factor (HCC) documented in this encounter Results * XR SI JOINTS 3VW OR MORE (02/06/2020 1:46 PM CDT) Anatomical Region Laterality Modality Pelvis, Lower Extremity [facility] Imaging 02/06/2020 2:55 PM CDT Impressions [...] Gloria Smith MD DIAGNOSTIC IMAGING O RDERABLES documented in this encounter Visit Diagnoses Diagnosis Rheumatoid arthritis of multiple sites with negative rheumatoid factor (HCC) documented in this encounter Care Teams Outboard Motor Tester Relationship Specialty Start Date End Date Tomas Hyman MD [address] [place] [address] PCP - General Family Medicine 09/05/18 Isidro Heredia MD Rheumatology 02/09/11 documented as of this encounter
--- OUTSIDE RECORDS SUMMARY | 2024-05-03 04:06 | XMS_ITS | Encounter Summary ---
Author Organization [facility] Address [address] [facility] [place] [address] Care Team Providers Care Lecturer In Marketing Name Role Phone Isidro Heredia MD Unavailable [phone] Tomas Hyman MD Primary Care Provider [phone] Encounter Details Date Type Department Care Team (Late Contact Info) Description 08/28/2019 Orders Only [facility] - Rheumatology [address] [place] [address] Gloria Smith MD [address] [place] [phone] Social History Tobacco Use Types Packs/Day [...] have Coronavirus / COVID-19? No / Unsure 08/28/2019 2:44 PM CDT documented as of this encounter Plan of Treatment Upcoming Encounters Date Type Department Care Team (Late Contact Info) Description 06/03/2024 1:00 PM LOGISTICS COORDINATOR Appointment [facility] - Rheumatology [address] [place] [address] 06/03/2024 2:00 PM LOGISTICS COORDINATOR Office Visit [facility] - Rheumatology [address] [place] [address] Gloria Smith MD [address] [place] [phone] documented as of this encounter Visit Diagnoses Not on filedocumented in this encounter Care Teams Lecturer In Marketing Relationship Specialty Start Date End Date Tomas Hyman MD [address] [facility] [address] [place] [address] PCP - General Family Medicine 09/05/18 Isidro Heredia MD Rheumatology 02/09/11 documented as of this encounter
--- OUTSIDE RECORDS SUMMARY | 2024-05-03 04:06 | XMS_ITS | Encounter Summary ---
Author Organization [facility] Address [address] [place] [address] Care Team Providers Care Electric Meter Setter Name Role Phone Isidro Heredia MD Unavailable [phone] Tomas Hyman MD Primary Care Provider [phone] Reason for Visit * Treatment (Routine) - Closed Specialty Diagnoses / Procedures Referred By Lawrence shah Referred To Contact Infusion Therapy Nurse Diagnoses Rheumatoid arthritis without rheumatoid factor, multiple sites (HCC) Procedures [place] INFLIXIMAB INJECTION Gloria Smith MD [address] [place] [address] [facility] [id number] [place] [phone] Referral ID Status Reason Start Date Expiration Date Visits Re quested Visits Authorized [id number] Closed 05/09/2019 04/29/2020 1 12 Encounter Details Date Type Department Care Team (Late st Contact Info) Description 08/29/2019 10:00 AM CDT - 08/29/2019 11:59 PM CDT Hospital Encounter [facility] - Rheumatology [address] [facility] [place] [address] Gloria Smith MD [address] [place] [address] Discharge Disposition: Home or Self [...] Sign Reading Time Taken Comments Blood Pressure 146/78 08/29/2019 10:08 AM CDT Pulse 87 08/29/2019 10:08 AM CDT Temperature 36.6 ??C (97.8 ??F) 08/29/2019 10:08 AM C DT Respiratory Rate 18 08/29/2019 10:08 AM CDT Oxygen Saturation - - Inhaled Oxygen Concentration - - Weight 110.2 kg (243 lb) 08/29/2019 10:07 AM CDT Height - - Body Mass Index 34.87 09/05/2018 10:54 AM CDT documented in this encounter Discharge Instructions * Discharge Instructions* Mary Watt RN - 08/29/2019 10:12 AM CDT Discharge Instructions [facility] Rheumatology You have received your infusion [...] through Sunday 9-5 call the office at [phone]. After hours or on the weekend call the exchange at [phone]. If you have had lab work done [...] 1 (one) tablet by mouth at bedtime amdqgrhgnic-pjuv-xu lysorb, PF, 0.5-1-0.5 % SOLN Instill 1 [...] Grams (4000 mg) / 24 hours. 03/05/2020 alendronate (FOSAMAX) 70 MG tablet TAKE 1 TABLET EVERY 7 DAYS BEFORE A MEAL IN THE MORNING WITH FULL GLASS OF WATER ON AN EMPTY STOMACH AND REMAIN UPRIGHT FOR 30 MINUTES 12 tablet 04/15/2019 11/10/2019 aspirin EC (ECOTRIN) 81 MG tablet Take 1 tablet by mouth once daily 90 tablet 3 04/15/2019 04/05/2020 buPROPion (WELLBUTRIN) 100 MG tablet Take 100 mg by mouth 2 times daily 07/14/2019 07/12/2020 buPROPion (WELLBUTRIN) 100 MG tablet Take 100 mg by mouth once daily 11/10/2019 carvedilol (COREG) 12.5 MG tablet Take 12.5 mg by mouth 2 times daily 07/14/2019 07/12/2020 carvedilol (COREG) 12.5 MG tablet TAKE 1 TABLET TWICE A DAY WITH MORNING AND EVENING MEALS (NEED TO START GETTING FROM PRIMARY CARE PHYSICIAN) 180 tablet 2 11/21/2017 11/10/2019 folic acid (FOLVITE) 1 MG tablet Take 1 tablet by mouth once daily 90 tablet 4 04/18/2019 04/05/2020 gabapentin (NEURONTIN) 300 MG capsule Take 1 capsule by mouth 3 times daily 270 capsule 1 07/14/2019 01/21/2020 InFLIXimab (REMICADE IV) 600 mg by Intravenous route as directed Every 4 weeks 11/16/2020 methotrexate 2.5 MG tablet Take 6 tablets by mouth every 7 days 72 tablet 2 12/12/2018 04/05/2020 naproxen (NAPROSYN) 500 MG tablet Take 1 tablet by mouth 2 times daily 180 tablet 2 12/12/2018 10/23/2019 oxyCODONE-acetamino phen (PERCOCET) 5-325 MG tablet Take 1 tablet by mouth every 6 hours as needed for Pain Dx: 714.0 RA 120 tablet 12/12/2018 11/10/2019 pantoprazole EC (PROTONIX) 40 MG tablet Take 1 tablet by mouth once daily 90 tablet 07/14/2019 10/23/2019 predniSONE (DELTASONE) 5 MG tablet Take 1 tablet by mouth 2 times daily 180 tablet 07/14/2019 10/23/2019 tiZANidine (ZANAFLEX) 4 MG tablet Take 1 tablet by mouth at bedtime 30 tablet 1 04/18/2019 01/17/2021 documented as of this encounter Progress Notes * Jody Sahu RN - 08/29/2019 10:00 AM CDT JOSE Deng [id number] 08/29/2019 Diagnosis: Rheumatoid arthritis without rheumatoid factor, multiple sites [M06.09]. Pt denies symptoms of infection or antibiotic use, no open wounds, or recent surgery, or plans for surgery in the next couple of weeks. Pt is aware that we use the 0-10 pain scale to assess discomfort. 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 front maker lockstitch pt signs consent for treatment for this infusion. BP 146/78 Pulse 87 Temp 97.8 ??F Resp 18 Wt 110.2 kg (243 lb) BMI 34.87 kg/m2 @ MEDICATIONS FOR CURRENT ENCOUNTER: ?? CONTINUOUS MEDICATIONS: ?? inFLIXimab (REMICADE) 600 mg in 0.9% NaCl 250 mL infusion, Intravenous, Continuous ?? Number of 24 gauge 3/4 inch placed in Right antecubital ?? 1 attempt(s). Patient monitored throughout procedure. Tolerated well? Yes Next treatment? [address] Smith's video OV, pt to return at 4 weeks for next infusion, then resume every 6 weeks. Jody Sahu RN documented in this encounter Plan of Treatment Upcoming Encounters Date Type Department Care Team (Late st Contact Info) Description 06/03/2024 1:00 PM OCEAN CLAM BOAT CAPTAIN Appointment [facility] - Rheumatology [address] [place] [address] 06/03/2024 2:00 PM OCEAN CLAM BOAT CAPTAIN Office Visit [facility] - Rheumatology [address] [place] [address] Gloria Smith MD [address] [place] [phone] documented as of this encounter Visit Diagnoses Diagnosis Rheumatoid arthritis of multiple sites with negative rheumatoid factor (HCC)- Primary documented in this encounter Administered Medications Inactive Administered Medications - up to 3 most recent administrations Medication Order MAR Action Action Date Dose Rate Site inFLIXimab (REMICADE) 600 mg in 0.9% NaCl 250 mL infusion 600 mg, at 125 mL/hr, Intravenous, CONTINUOUS, Starting on Sun08/29/19 at 1045, Until 08/30/19 at 0117, RAPID INFUSION INCLUSION CRITERIA: -Patient has previously received three standard infliximab infusions at [facility] -Patient has no history of infusion-related hypersensitivity reactions or delayed hypersensitivity reactions to infliximab. Symptoms of hypersensitivity reactions include difficulty breathing, itching, hypotension, fever, rash, headache, or body aches., -Most recent infusion within 12 weeks EXCLUSION CRITERIA: -History of infusion-related hypersensitivity reaction or delayed hypersensitivity reaction to infliximab -Most recent infusion >12 weeks ago -Patient's dose has been increased and patient is to receive the first increased dose Refrigerate. Use with in-line filter. $ New Bag/Syringe 08/29/2019 10:27 AM CDT 600 mg 125 mL/hr documented in this encounter Care Teams Electric Meter Setter Relationship Specialty Start Date End Date Tomas Hyman MD [address] [place] [address] PCP - General Family Medicine 09/05/18 Isidro Heredia MD Rheumatology 02/09/11 documented as of this encounter
--- OUTSIDE RECORDS SUMMARY | 2024-05-03 04:06 | XMS_ITS | Encounter Summary ---
Author Organization [facility] Address [address] [facility] [place] [address] Care Team Providers Care Otr Truck Driver Name Role Phone Isidro Heredia MD Unavailable [phone] Tomsa Hyman MD Primary Care Provider [phone] Reason for Visit * Reason Onset Date Comments MEDICATION REFILL 10/23/2019 Encounter Details Date Type Department Care Team (Late Contact Info) Description 10/23/2019 Refill [facility] - Rheumatology [address] [place], [place] [id number] Mychart, Generic Provider MEDICATION REFILL Social History Tobacco Use Types [...] have Coronavirus / COVID-19? No / Unsure 09/26/2019 11:06 AM CDT documented as of this encounter Miscellaneous Notes * Telephone Encounter - Ella Peters - 10/23/2019 2:59 PM CDT Carrie:09/06 Nov:11/09 documented in this encounter Plan of Treatment Upcoming Encounters Date Type Department Care Team (Late Contact Info) Description 06/03/2024 1:00 PM LEGAL COUNSEL Appointment [facility] - Rheumatology [address] [place] [address] 06/03/2024 2:00 PM LEGAL COUNSEL Office Visit [facility] - Rheumatology [address] [place] [address] Gloria Smith MD [address] [place] [phone] documented as of this encounter Visit Diagnoses Not on filedocumented in this encounter Care Teams Otr Truck Driver Relationship Specialty Start Date End Date Tomas Hyman MD [address] [place] [address] PCP - General Family Medicine 09/05/18 Isidro Heredia MD Rheumatology 02/09/11 documented as of this encounter
--- OUTSIDE RECORDS SUMMARY | 2024-05-03 04:06 | XMS_ITS | Encounter Summary ---
Author Organization [facility] Address [address] [facility] [place] [address] Care Team Providers Care Bioinformatics Engineer Name Role Phone Isidro Heredia MD Unavailable [phone] Tomas Hyman MD Primary Care Provider [phone] Encounter Details Date Type Department Care Team (Latest Contact Info) Description 12/05/2019 Travel Social History Tobacco Use Types Packs/Day [...] have Coronavirus / COVID-19? No / Unsure 12/05/2019 8:43 AM CDT documented as of this encounter Plan of Treatment Upcoming Encounters Date Type Department Care Team (Late st Contact Info) Description 06/03/2024 1:00 PM FRAME WIRER Appointment [facility] - Rheumatology [address] [place] [address] 06/03/2024 2:00 PM FRAME WIRER Office Visit [facility] - Rheumatology [address] [place] [address] Gloria Smith MD [address] [place] [phone] documented as of this encounter Visit Diagnoses Not on filedocumented in this encounter Care Teams Bioinformatics Engineer Relationship Specialty Start Date End Date Tomas Hyman MD [address] [facility] [address] [place] [address] PCP - General Family Medicine 09/05/18 Isidro Heredia MD Rheumatology 02/09/11 documented as of this encounter
--- OUTSIDE RECORDS SUMMARY | 2024-05-03 04:06 | XMS_ITS | Encounter Summary ---
Author Organization [facility] Address [address] [place] [address] Care Team Providers Care Employee Training Specialist Name Role Phone Isidro Heredia MD Unavailable [phone] Tomas Hyman MD Primary Care Provider [phone] Encounter Details Date Type Department Care Team (Latest Contact Info) Description 09/26/2019 Travel Social History Tobacco Use Types Packs/Day [...] st Contact Info) Description 06/03/2024 1:00 PM VISUAL EDUCATOR Appointment [facility] - Rheumatology [address] [place] [address] 06/03/2024 2:00 PM VISUAL EDUCATOR Office Visit [facility] - Rheumatology [address] [place] [address] Gloria Smith MD [address] [place] [phone] documented as of this encounter Visit Diagnoses Not on filedocumented in this encounter Care Teams Employee Training Specialist Relationship Specialty Start Date End Date Tomas Hyman MD [address] [facility] [address] [place] [address] PCP - General Family Medicine 09/05/18 Isidro Heredia MD Rheumatology 02/09/11 documented as of this encounter
--- OUTSIDE RECORDS SUMMARY | 2024-05-03 04:06 | XMS_ITS | Encounter Summary ---
Author Organization [facility] Address [address] [place] [address] Care Team Providers Care Front Desk Assistant Name Role Phone Isidro Heredia MD Unavailable Tomas Hyman MD Primary Care Provider [phone] Encounter Details Date Type Department Care Team (Late Contact Info) Description 12/01/2019 Orders Only [facility] - Rheumatology [address] [place] [address] Gloria Smith MD [address] [place] [phone] Social History Tobacco Use Types Packs/Day [...] have Coronavirus / COVID-19? No / Unsure 11/10/2019 11:30 AM CDT documented as of this encounter Plan of Treatment Upcoming Encounters Date Type Department Care Team (Late Contact Info) Description 06/03/2024 1:00 PM REST ROOM MAID Appointment [facility] - Rheumatology [address] [place] [address] 06/03/2024 2:00 PM REST ROOM MAID Office Visit [facility] - Rheumatology [address] [place] [address] Gloria Smith MD [address] [place] [phone] documented as of this encounter Visit Diagnoses Not on filedocumented in this encounter Care Teams Front Desk Assistant Relationship Specialty Start Date End Date Tomas Hyman MD [address] [facility] [address] [place] [address] PCP - General Family Medicine 09/05/18 Isidro Heredia MD Rheumatology 02/09/11 documented as of this encounter
--- OUTSIDE RECORDS SUMMARY | 2024-05-03 04:06 | XMS_ITS | Encounter Summary ---
Author Organization [facility] Address [address] [facility] [place] [address] Care Team Providers Care Professor Of French Name Role Phone Isidro Heredia MD Unavailable [phone] Tomas Hyman MD Primary Care Provider [phone] Reason for Visit * Reason Onset Date Comments MEDICATION REFILL 01/21/2020 Encounter Details Date Type Department Care Team (Late st Contact Info) Description 01/21/2020 Refill [facility] - Rheumatology [address] [place] [address] Gloria Smith MD [address] [place] [phone] MEDICATION REFILL Social History Tobacco Use [...] encounter Miscellaneous Notes * Telephone Encounter - Lesa Pennington - 01/21/2020 11:04 AM CDT Last seen: 11/09 Gabapentin last filled 07/14/19 (270x1) Pantoprazole last filled 10/22 (90) Next appt: None scheduled < Requested Prescriptions Pending Prescriptions Disp Refills ??? gabapentin (NEURONTIN) 300 MG capsule 270 capsule 1 Sig: Take 1 capsule by mouth 3 times daily ??? pantoprazole EC (PROTONIX) 40 MG tablet 90 tablet 0 Sig: Take 1 tablet by mouth once daily > documented in this encounter Plan of Treatment Upcoming Encounters Date Type Department Care Team (Late st Contact Info) Description 06/03/2024 1:[address] CHANGE ROOF BOLTER Appointment [facility] - Rheumatology [address] [place] [phone] 06/03/2024 2:[address] CHANGE ROOF BOLTER Office Visit [facility] - Rheumatology [address] [place] [phone] Gloria Smith MD [address] [place] [phone] documented as of this encounter Visit Diagnoses Not on filedocumented in this encounter Care Teams Professor Of French Relationship Specialty Start Date End Date Tomas Hyman MD [address] [facility] [address] [place] [address] PCP - General Family Medicine 09/05/18 Isidro Heredia MD Rheumatology 02/09/11 documented as of this encounter
--- OUTSIDE RECORDS SUMMARY | 2024-05-03 04:06 | XMS_ITS | Encounter Summary ---
Author Organization [facility] Address [address] [facility] [place] [address] Care Team Providers Care Demo Event Specialist Name Role Phone Isidro Heredia MD Unavailable [phone] Tomas Hyman MD Primary Care Provider [phone] Encounter Details Date Type Department Care Team (Latest Contact Info) Description 12/19/2019 10:56 AM CDT - 12/19/2019 10:57 AM CDT Hospital Encounter [facility] [address] [place] [address] [place] [address] [place] [address] Discharge Disposition: Home or Self Care Social [...] have Coronavirus / COVID-19? No / Unsure 12/15/2019 2:00 PM CDT documented as of this encounter Medications at Time of Discharge Medication Sig Dispensed Refills Start Date End Date atorvastatin (LIPITOR) 40 MG tablet Take 1 (one) tablet by mouth at bedtime faakanlcatq-gsve-yq lysorb, PF, 0.5-1-0.5 % SOLN Instill 1 [...] tablet by mouth once daily 90 tablet 10/23/2019 01/21/2020 predniSONE (DELTASONE) 5 MG tablet Take 1 tablet by mouth 2 times daily 180 tablet 10/23/2019 07/12/2020 tiZANidine (ZANAFLEX) 4 MG tablet Take 1 tablet by mouth at bedtime 30 tablet 1 04/18/2019 01/17/2021 documented as of this encounter Plan of Treatment Upcoming Encounters Date Type Department Care Team (Late st Contact Info) Description 06/03/2024 1:00 PM SENIOR NURSE MANAGER Appointment [facility] - Rheumatology [address] [place] [address] 06/03/2024 2:00 PM SENIOR NURSE MANAGER Office Visit [facility] - Rheumatology [address] [place] [address] Gloria Smith MD [address] [place] [phone] documented as of this encounter Visit Diagnoses Not on filedocumented in this encounter Care Teams Demo Event Specialist Relationship Specialty Start Date End Date Tomas Hyman MD [address] [address] [address] [place] [address] PCP - General Family Medicine 09/05/18 Isidro Heredia MD Rheumatology 02/09/11 documented as of this encounter
--- OUTSIDE RECORDS SUMMARY | 2024-05-03 04:06 | XMS_ITS | Encounter Summary ---
Author Organization [facility] Address [address] [place] [address] Care Team Providers Care Security Control Center Operator Name Role Phone Isidro Heredia MD Unavailable [phone] Tomas Hyman MD Primary Care Provider [phone] Reason for Visit * Reason Onset Date Comments Update 12/05/2019 Encounter Details Date Type Department Care Team (Late st Contact Info) Description 12/05/2019 Telephone [facility] Medical [facility] - Rheumatology [address] [place] [address] Gloria Smith MD [address] [place] [phone] Update Social History Tobacco Use Types Packs/Day Years [...] encounter Miscellaneous Notes * Telephone Encounter - Jody Sahu RN - 12/05/2019 11:39 AM CDT Called patient and rescheduled his appointment after his antibiotics are completed. Pt will call inafter he sees his Doctor and is cleared of infection. * Telephone Encounter - Amanda Salter - 12/05/2019 8:37 AM CDT Patient is unable to keep his appt for infusion this coming Sunday Did leave a VM documented in this encounter Plan of Treatment Upcoming Encounters Date Type Department Care Team (Late st Contact Info) Description 06/03/2024 1:00 PM TELEVISION ANTENNA INSTALLER Appointment [facility] - Rheumatology [address] [place] [phone] 06/03/2024 2:00 PM TELEVISION ANTENNA INSTALLER Office Visit [facility] - Rheumatology [address] [place] [address] Gloria Smith MD [address] [place] [phone] documented as of this encounter Visit Diagnoses Not on filedocumented in this encounter Care Teams Security Control Center Operator Relationship Specialty Start Date End Date Tomas Hyman MD [address] [facility] [address] [place] [address] PCP - General Family Medicine 09/05/18 Isidro Heredia MD Rheumatology 02/09/11 documented as of this encounter
--- OUTSIDE RECORDS SUMMARY | 2024-05-03 04:06 | XMS_ITS | Encounter Summary ---
Author Organization [facility] Address [address] [facility] [place] [address] Care Team Providers Care Practical Nursing Instructor Name Role Phone Isidro Heredia MD Unavailable [phone] Tomas Hyman MD Primary Care Provider [phone] Reason for Visit * Treatment (Routine) - Closed Specialty Diagnoses / Procedures Referred By Lawrence shah Referred To Contact Infusion Therapy Nurse Diagnoses Rheumatoid arthritis without rheumatoid factor, multiple sites (HCC) Procedures [place] INFLIXIMAB INJECTION Gloria Smith MD [address] [place] [address] [facility] [address] [place] [phone] Referral ID Status Reason Start Date Expiration Date Visits Re quested Visits Authorized [id number] Closed 05/09/2019 04/29/2020 1 12 Encounter Details Date Type Department Care Team (Late st Contact Info) Description 09/26/2019 9:49 AM CDT - 09/26/2019 11:59 PM CDT Hospital Encounter [facility] - Rheumatology [address] [facility] [place] [address] Gloria Smith MD [address] [place] [address] Discharge Disposition: Home or Self [...] Sign Reading Time Taken Comments Blood Pressure 111/77 09/26/2019 10:15 AM CDT Pulse 85 09/26/2019 10:15 AM CDT Temperature 36.8 ??C (98.3 ??F) 09/26/2019 10:15 AM C DT Respiratory Rate 18 09/26/2019 10:15 AM CDT Oxygen Saturation - - Inhaled Oxygen Concentration - - Weight 111.1 kg (245 lb) 09/26/2019 10:15 AM CDT Height - - Body Mass Index 35.15 09/05/2018 10:54 AM CDT documented in this encounter Discharge Instructions * Discharge Instructions* Jody Sahu RN - 09/26/2019 10:33 AM CDT [place] Rheumatology Post Infusion instructions You have received [...] through Sunday 9-5 call the office at [phone] After hours or on the weekend call the exchange at [phone] If you have had lab work done [...] you and are glad you have chosen [facility] as your provider. Jody Sahu, RN documented in this encounter Medications at Time of Discharge Medication Sig Dispensed Refills Start Date End Date atorvastatin (LIPITOR) 40 MG tablet Take 1 (one) tablet by mouth at bedtime lmvvcpighru-ehbk-qs lysorb, PF, 0.5-1-0.5 % SOLN Instill 1 [...] Progress Notes * Jody Sahu RN - 09/26/2019 10:00 AM CDT JOSE Deng [id number] 09/26/2019 Diagnosis: Rheumatoid arthritis without rheumatoid factor, multiple sites [M06.09]. Pt denies symptoms of infection or antibiotic use, no open wounds, or recent surgery, or plans for surgery in the next couple of weeks. Pt is aware that we use the 0-10 pain scale to assess discomfort. 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 front desk representative pt signs consent for treatment for this infusion. BP 111/77 Pulse 85 Temp 98.3 ??F Resp 18 Wt 111.1 kg (245 lb) BMI 35.15 kg/m2 @ MEDICATIONS FOR CURRENT ENCOUNTER: ?? SCHEDULED MEDICATIONS: ?? inFLIXimab (REMICADE) 600 mg in 0.9% NaCl 250 mL infusion, Intravenous, Once ?? Number of 24 gauge 3/4 inch placed in Left antecubital ?? 1 attempt(s). Patient monitored throughout procedure. Tolerated well? Yes Next treatment? 6 weeks Jody Sahu RN documented in this encounter Plan of Treatment Upcoming Encounters Date Type Department Care Team (Late st Contact Info) Description 06/03/2024 1:00 PM LAND ACQUISITION SPECIALIST Appointment [facility] - Rheumatology [address] [place] [address] 06/03/2024 2:00 PM LAND ACQUISITION SPECIALIST Office Visit [facility] - Rheumatology [address] [place] [address] [phone] Gloria Smith MD [address] [place] [phone] documented as of this encounter Visit Diagnoses Diagnosis Rheumatoid arthritis of multiple sites with negative rheumatoid factor (HCC)- Primary documented in this encounter Administered Medications Inactive Administered Medications - up to 3 most recent administrations Medication Order MAR Action Action Date Dose Rate Site inFLIXimab (REMICADE) 600 mg in 0.9% NaCl 250 mL infusion 600 mg, at 250 mL/hr, Intravenous, ONCE, 1 dose, On Sun09/26/19 at 1100, RAPID INFUSION INCLUSION CRITERIA: -Patient has previously [...] Use with in-line filter. $ New Bag/Syringe 09/26/2019 10:44 AM CDT 600 mg 135 mL/hr documented in this encounter Care Teams Practical Nursing Instructor Relationship Specialty Start Date End Date Tomas Hyman MD [address] [facility] [address] [place] [address] PCP - General Family Medicine 09/05/18 Isidro Heredia MD Rheumatology 02/09/11 documented as of this encounter
--- OUTSIDE RECORDS SUMMARY | 2024-05-03 04:06 | XMS_ITS | Encounter Summary ---
Author Organization [facility] Address [address] [place] [address] Care Team Providers Care Staff Nurse Midwife Name Role Phone Isidro Heredia MD Unavailable [phone] Tomas Hyman MD Primary Care Provider [phone] Encounter Details Date Type Department Care Team (Latest Contact Info) Description 08/28/2019 Travel Social History Tobacco Use Types Packs/Day [...] st Contact Info) Description 06/03/2024 1:00 PM SPORTS BOOK SERVER Appointment [facility] - Rheumatology [address] [place] [address] 06/03/2024 2:00 PM SPORTS BOOK SERVER Office Visit [facility] - Rheumatology [address] [place] [address] Gloria Smith MD [address] [place] [phone] documented as of this encounter Visit Diagnoses Not on filedocumented in this encounter Care Teams Staff Nurse Midwife Relationship Specialty Start Date End Date Tomas Hyman MD [address] [facility] [address] [place] [address] PCP - General Family Medicine 09/05/18 Isidro Heredia MD Rheumatology 02/09/11 documented as of this encounter
--- OUTSIDE RECORDS SUMMARY | 2024-05-03 04:06 | XMS_ITS | Encounter Summary ---
Author Organization [facility] Address [address] [place] [address] Care Team Providers Care Clinical Care Manager Name Role Phone Isidro Heredia MD Unavailable [phone] Tomas Hyman MD Primary Care Provider [phone] Encounter Details Date Type Department Care Team (Latest Contact Info) Description 12/19/2019 10:58 AM CDT - 12/19/2019 11:59 PM CDT Hospital Encounter [facility] Pain Care [address] [place] [address] [place] [address] [place] [address] Discharge Disposition: Home or Self [...] Sign Reading Time Taken Comments Blood Pressure 122/84 12/19/2019 11:24 AM CDT Pulse 84 12/19/2019 11:24 AM CDT Temperature - - Respiratory Rate 16 12/19/2019 11:24 AM CDT Oxygen Saturation 96% 12/19/2019 11:24 AM CDT Inhaled Oxygen Concentration - - Weight - - Height - - Body Mass Index - - documented in this encounter Discharge Instructions * Patient Instructions* Kristina Paris RN - 12/19/2019 11:00 AM CDT [facility] Procedure Center Pain Discharge Instructions Selective [...] headache, or any other problems, please call [phone] or after hours callDr. Barnett at [phone] and tell them your physician's name. The exchange will alert the physician monotype keyboard operator. If sedation is given: No sedation given. For Your Next Visit: No additional instructions. Other Instructions: May remove band-aid in 12 Hours. Return in 3-[address] Lazar documented in this encounter Medications at Time of Discharge Medication Sig Dispensed Refills Start Date End Date atorvastatin (LIPITOR) 40 MG tablet Take 1 (one) tablet by mouth at bedtime jtqnkvikqvl-yubl-ls lysorb, PF, 0.5-1-0.5 % SOLN Instill 1 [...] 04/18/2019 01/17/2021 documented as of this encounter H&P Notes * Anu Barnett MD - 12/19/2019 11:00 AM CDT Images from the original note were not included. Chief Complaint(s): Chronic intractable, severe, persistent and uncontrolled and worsening lower back and LE pain. Painas severe as 6-10/10 daily. Presents for repeat L4/L5 paramedian left side LESI for severe pain control. HPI: Patient is a 59-year-old right handed CM with a history of low back and bilateral lower extremity pain, who has been treated by Dr. Mirza. Since April 2016. Comorbid health issues include rheumatoid arthritis-seropositive, diverticulitis, sepsis, recurrentUTIs, osteoporosis chronic back pain with radiculopathy, and chronic opioid use, which is apparently being weaned by Dr. Heredia. Patient presents to report acute on chronic lower back and LLE pain along the left anterolateral thigh to the distal LLE to involve subjective LE weakness, n/t and cramping. Reports pain is worse with walking, standing, bending, lifting, coughing and sneezing. Pain is better with nothing. Treatments for his severe lower back and LE pain have included rest, ice, heat, tylenol, percocet, gabapentin, ibuprofen, and flexeril. Has been doing his home exercise program for over one year without sustained pain relief. Has done PT in the past - and has been doing his home exercise program regularly including non-invasive decompression with his inversion table for the last one year without sustained pain relief. He has undergone prior L4/L5 paramedian left side LESI for severe pain control and reports his LE pain had resolved for over three months prior to recurrence of his severe pain. Plan for repeat L4/L5 paramedian left side LESI for severe pain control R/b/a discussed, all questions answered. ASA 2. MRI results reviewed today-(DATED 07/03/2019) include L4-L5 moderate facet arthropathy, central canal stenosis and right neural foraminal stenosis. ===== The most recent lumbar MRI on the record is from February 17, 2017: Which included mild spondylosis at L5-S1, with a central rightward extrusion abutting the right S1 nerve root in the right lateral recess. There is severe bilateral facet arthropathy, with mild to moderate bilateral neural foraminalstenosis. At L4-L5, bulging with annular tear and mild bilateral facet arthropathy, as well as mildbilateral neural foraminal and central canal stenosis. L3-4, mild facet arthropathy, without foraminal or central stenosis. L1-2 and L2-3. He is minimal pathology, with the L2-3, having mild bilateral neural foraminal stenosis. . Current Medication: Taking Alendronate Sodium 70 MG Tablet 1 tablet 30 minutes before the first food, beverage or medicine of the day with plain water Orally every 7 days. Naproxen 500 MG Tablet 1 tablet with food or milk as needed Orally every 12 hrs. Gabapentin 300 MG Capsule 1 capsule Orally tid. Carvedilol 12.5 MG Tablet as directed Orally BID. Atorvastatin Calcium 40 MG Tablet 1 tablet Orally Once a day. Ecotrin Low Strength 81 MG Tablet Delayed Release as directed Orally. BuPROPion HCl 100 MG Tablet 1 tablet Orally Twice a day. Hydrochlorothiazide 25 MG Tablet 1 tablet in the morning Orally Once a day. Folic Acid 1 MG Tablet 1 tablet Orally Once a day. Tizanidine HCl 4 MG Tablet 1 tablet as [...] Release 1 tablet Orally Once a day. PredniSONE 10 MG Tablet 1 tablet Orally Once a day. Vascepa 1 GM Capsule 2 capsules with meals Orally Twice a day. Potassium 99 MG Tablet 1 tablet Orally Once a day. Refresh Dry Eye Therapy. Remicade 100 MG Solution Reconstituted as directed Intravenous 400mg every 6 weeks. Oxycodone-Acetaminophen 5-325 MG Tablet 1 tablet as needed Orally every 6 hrs. Medication List reviewed and reconciled with the [...] year? No Points 0 Interpretation Negative Miscellaneous: Living with: family. Marital status: . Occupation: retired. Household: Household Marital status: ROS: General/Constitutional Denies Change in appetite. Denies Chills. Denies Fatigue. Denies Fever. Denies Headache. Denies Lightheadedness. Admits Sleep disturbance. Denies Weight gain. Denies Weight loss. + severe lower back pain + severe left > right LE pain. Objective: Vitals: Ht 70 in, Wt 235 lbs, BMI 33.72 Index, ELADIA 52, SOAPP-R 7, Ht-cm 177.8 cm, Wt-kg 106.6 kg Past Results: Examination: General Examination in no acute distress, well developed, well nourished categoryPropId= [id number] examid= [id number] GENERALAPPEARANCE: in no acute distress, well developed, well nourished. NC/AT, Symmetrical categoryPropId= [id number] examid= [id number] HEAD: NC/AT, Symmetrical. PERRLA, EOMI, Visual keen intact categoryPropId= [id number] examid= [id number] EYES: PERRLA, EOMI, Visual keen intact. Hearing intact categoryPropId= [id number] examid= [id number] EARS: Hearing intact. Supple, non-tender, no thyroidomegaly categoryPropId= [id number] examid= [id number] NECK/THYROID: Supple, non-tender, no thyroidomegaly. Lungs clear w/o wheezes, no rales or rhonchi categoryPropId= [id number] examid= [id number] RESPIRATORY: Lungs clear w/o wheezes, no rales or rhonchi. regular rate & rhythm, no murmurs categoryPropId= [id number] examid= [id number] HEART: regular rate & rhythm, no murmurs. ambulates with slow antalgic gait with cane assist LUMBAR SPINE EXAM: + Severe pain on palpation of the bilateral lumbar facets L3/L4 thru L5/S1 worse with extension andlateral bending and rotation with facet loading; SLR ++ LLE at < 45 degrees Lumbar spine range of motion limited and decreased on extension and rotation and with lateral bending due to severe pain /resistance; + atrophy lumbar paraspinal muscles DTR 2/4 obdulia knees and 1/4 right ankle and 1-2/4 left ankle and asymm Sensory decreased to fine right distal LE compared to left and asymm + toe and heel stand; Motor obdulia EHL, FHL, TA 5/5 and symmetrical; Diameter Right calf: 44.25 cm Diameter Left calf: 43 cm categoryPropId= [id number] examid= [id number] MUSCULOSKELETAL: ambulates with slow antalgic gait with cane assist LUMBAR SPINE EXAM: + Severe pain on palpation of the bilateral lumbar facets L3/L4 thru L5/S1 worse with extension andlateral bending and rotation with facet loading; SLR ++ LLE at < 45 degrees Lumbar spine range of motion limited and decreased on extension and rotation and with lateral bending due to severe pain /resistance; + atrophy lumbar paraspinal muscles DTR 2/4 obdulia knees and 1/4 right ankle and 1-2/4 left ankle and asymm Sensory decreased to fine right distal LE compared to left and asymm + toe and heel stand; Motor obdulia EHL, FHL, TA 5/5 and symmetrical; Diameter Right calf: 44.25 cm Diameter Left calf: 43 cm. Skin w/o lesions, moist, well perfused categoryPropId= [id number] examid= [id number] SKIN: Skin w/o lesions, moist, well perfused. Patient alert & oriented, appropriate mood & affect, speech normal, tone normal, affect appropriate, NAD. Patient denies suicidal ideation. Patient denies homicidal ideation. categoryPropId= [id number] examid= [id number] PSYCH: Patient alert & oriented, appropriate mood & affect, speech normal, tone normal, affect appropriate, NAD. Patient denies suicidal ideation. Patient denieshomicidal ideation.. Active bowel sounds, soft, no mass or organomegaly categoryPropId= [id number] examid= [id number] GASTROINTESTINAL: Active bowel sounds, soft, no mass or organomegaly. Assessment: Other spondylosis with radiculopathy, lumbosacral region - M47.27 (Primary) Other intervertebral disc degeneration, lumbosacral region - M51.37 Low back pain - M54.5 Chronic pain syndrome - G89.4 Plan: Treatment: Other spondylosis with radiculopathy, lumbosacral region Notes: Plan for repeat L4/L5 paramedian left side LESI for severe pain control. === Risks, benefits, and alternatives were discussed including the risk of infection, bleeding, nerve damage, worsening pain, no pain relief whatsoever, transient increase in blood pressure, blood sugar,fluid retention, possibility of headaches, and possibility of shingles, meningitis, discitis, paralysis, permanent neurological injury, spinal cord trauma, loss of bowel and bladder function, epidural hematoma, epidural abscess, need for surgical intervention of the spine, . I have discussed with the patient the risks, benefits, [...] a fluoroscopically guided lumbar epidural steroid injection. Next Appointment: 4 Weeks (Reason: Re-eval s/p LESI) documented in this encounter OR Notes * Operative - Anu Barnett MD - 12/19/2019 11:00 AM CDT Procedures: LESI: Procedure Performed Lumbar Epidural steroid injection with fluoroscopic guidance at L4/L5 paramedian left side. --- Procedure DATE OF PROCEDURE: 12/19/2019 SURGEON: ANU BARNETT MD PRE-OPERATIVE DIAGNOSIS: Other spondylosis with radiculopathy, lumbosacral region - M47.27 (Primary) Other intervertebral disc degeneration, lumbosacral region - M51.37 Low back pain - M54.5 Chronic pain syndrome - G89.4 POST-OPERATIVE DIAGNOSIS: SAME _ __ __ __ __ __ __ __ __ __ _ PREP: Chloraprep. ANESTHESIA: Local anesthetic at the site(s). Total Face to Face Time: 16 minutes FLUIDS: None BLOOD LOSS: None DRAINS: None. COMPLICATIONS: None. CONDITION POSTPROCEDURE: Stable. 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 INDICATIONS: Please refer to H/P for noted indications, failed prior treatments and r/b/a discussedwith patient prior to procedure. Risks, benefits, and alternatives were discussed including [...] draped in the usual sterile fashion. The L4/L5 interspace was identified and a local skin anesthesia was accomplished with 1cc of 1% Lidocaine via a 25 gauge needle. Subsequently an 20 gauge Tuohy needle was inserted at the L4/L5 interspace and advanced under constant incremental lateral and AP fluoroscopic guidance toward the epidural space to ensure proper depth and angle throughout. A loss of resistance technique with 1.0 cc of preservative free saline confirmed entrance into the epidural space. 1 cc of isovue 200 contrast was easily injected after negative aspiration of CSF or blood. Excellent outlining of the epidural spcace was witnessed. The patient then received 5 cc of preservative free normal saline along with 2 cc preservative free 0.25% PF Marcaine and 40 mg of DepoMedrol (40mg/ml). [...] on how to reach the clinic or monotype keyboard operator physician at anytime for questions or complaints. documented in this encounter Plan of Treatment Upcoming Encounters Date Type Department Care Team (Late st Contact Info) Description 06/03/2024 1:00 PM STEM ASSEMBLER Appointment [facility] - Rheumatology [address] [place] [phone] 06/03/2024 2:00 PM STEM ASSEMBLER Office Visit [facility] - Rheumatology [address] [place] [address] Gloria Smith MD [address] [place] [phone] Pending Results Name Type Priority Associated Diagnoses Date /Time PAIN MANAGEMENT PROCEDURE TIME Imaging Routine Lumbosacral spondylosis with radiculopathy Degeneration of lumbosacral intervertebral disc Acute left-sided low back pain with sciatica, sciatica laterality unspecified Chronic pain syndrome 12/19/2019 11:26 AM CDT documented as of this encounter Visit Diagnoses Diagnosis Lumbosacral spondylosis with radiculopathy Degeneration of lumbosacral intervertebral disc Degeneration of lumbar or lumbosacral intervertebral disc Acute left-sided low back pain with sciatica, sciatica laterality unspecified Chronic pain syndrome documented in this encounter Administered Medications Inactive Administered Medications - up to 3 most recent administrations Medication Order MAR Action Action Date Dose Rate Site bupivacaine PF (MARCAINE PF) 0.25 % injection Infiltration, ONCE, 1 dose, On Sun12/19/19 at 1130 $ Admin. by Other Provider 12/19/2019 11:20 AM CDT 5 mL iopamidol (ISOVUE M 200) 41 % contrast Intraspinal, CONTRAST ONCE, Starting on Sun12/19/19 at 1109, Until 12/20/19 at 0117 $ Given - Contrast 12/19/2019 11:20 AM CDT 1 mL lidocaine PF (XYLOCAINE MPF) 1 % injection Infiltration, ONCE, 1 dose, On Sun12/19/19 at 1130 $ Admin. by Other Provider 12/19/2019 11:18 AM CDT 50 mg methylPREDNISolone acetate (DEPO-Medrol) injection 80 mg 80 mg, Intramuscular, INTRA-PROCEDURE ONCE, 1 dose, On Sun12/19/19 at 1115 $ Admin. by Other Provider 12/19/2019 11:20 AM CDT 40 mg Back documented in this encounter Care Teams Clinical Care Manager Relationship Specialty Start Date End Date Tomas Hyman MD [address] [facility] [address] [place] [address] PCP - General Family Medicine 09/05/18 Isidro Heredia MD Rheumatology 02/09/11 documented as of this encounter
--- OUTSIDE RECORDS SUMMARY | 2024-05-03 04:06 | XMS_ITS | Encounter Summary ---
Author Organization [facility] Address [address] [place] [address] Care Team Providers Care Documentation Clerk Name Role Phone Isidro Heredia MD Unavailable [phone] Tomas Hyman MD Primary Care Provider [phone] Encounter Details Date Type Department Care Team (Latest Contact Info) Description 08/19/2019 Travel Social History Tobacco Use Types Packs/Day [...] have Coronavirus / COVID-19? No / Unsure 08/19/2019 11:21 AM CDT documented as of this encounter Plan of Treatment Upcoming Encounters Date Type Department Care Team (Late st Contact Info) Description 06/03/2024 1:00 PM PROFESSIONAL BONDSMAN Appointment [facility] - Rheumatology [address] [place] [address] 06/03/2024 2:00 PM PROFESSIONAL BONDSMAN Office Visit [facility] - Rheumatology [address] [place] [address] Gloria Smith MD [address] [place] [phone] documented as of this encounter Visit Diagnoses Not on filedocumented in this encounter Care Teams Documentation Clerk Relationship Specialty Start Date End Date Tomas Hyman MD [address] [facility] [address] [place] [address] PCP - General Family Medicine 09/05/18 Isidro Heredia MD Rheumatology 02/09/11 documented as of this encounter
--- OUTSIDE RECORDS SUMMARY | 2024-05-03 04:06 | XMS_ITS | Encounter Summary ---
Author Organization [facility] Address [address] [facility] [place] [address] Care Team Providers Care Papeterie Table Assembler Name Role Phone Isidro Heredia MD Unavailable [phone] Tomas Hyman MD Primary Care Provider [phone] Reason for Visit * Treatment (Routine) - Closed Specialty Diagnoses / Procedures Referred By Lawrence shah Referred To Contact Infusion Therapy Nurse Diagnoses Rheumatoid arthritis without rheumatoid factor, multiple sites (HCC) Procedures [place] INFLIXIMAB INJECTION Gloria Smith MD [address] [place] [address] [phone] Referral ID Status Reason Start Date Expiration Date Visits Re quested Visits Authorized [id number] Closed 05/09/2019 04/29/2020 1 12 Encounter Details Date Type Department Care Team (Late st Contact Info) Description 02/06/2020 11:33 AM CDT - 02/06/2020 1:40 PM CDT Hospital Encounter [facility] Medical [facility] - Rheumatology [address] [place] [address] Gloria Smith MD [facility] [place] [address] Discharge Disposition: Home or Self [...] Time Taken Comments Blood Pressure 153/78 02/06/2020 11:44 AM CDT Pulse 78 02/06/2020 11:44 AM CDT Temperature 36.8 ??C (98.2 ??F) 02/06/2020 11:44 AM C DT Respiratory Rate 18 02/06/2020 11:44 AM CDT Oxygen Saturation - - Inhaled Oxygen Concentration - - Weight 103.4 kg (228 lb) 02/06/2020 11:44 AM CDT Height - - Body Mass Index 32.71 11/10/2019 10:34 AM CDT documented in this encounter Discharge Instructions * Discharge Instructions* Jody Sahu RN - 02/06/2020 11:55 AM CDT [place] Rhe[facility]ology Post Infusion instructions You have received [...] rash or breathing problems please call your [facility] Rheumatology physician for further instructions. While most problems that occur around the time of an infusion are very mild and not dangerous, they should not be ignored. Sunday through Sunday 9-5 call the office at [phone] After hours or on the weekend call the exchange at [phone] If you have had lab work done [...] you and are glad you have chosen [facility] as your provider. Jody Sahu, RN documented in this encounter Medications at Time of Discharge Medication Sig Dispensed Refills Start Date End Date atorvastatin (LIPITOR) 40 MG tablet Take 1 (one) tablet by mouth at bedtime ypjavappcqv-aoyb-eb lysorb, PF, 0.5-1-0.5 % SOLN Instill 1 [...] Progress Notes * Jody Sahu, RN - 02/06/2020 12:00 PM CDT JOSE Deng [id number] 02/06/2020 Diagnosis: Rheumatoid arthritis without rheumatoid factor, multiple sites [M06.09]. Pt denies symptoms of infection or antibiotic use, no open wounds, or recent surgery, or plans for surgery in the next couple of weeks. Pt is aware that we use the 0-10 pain scale to assess discomfort. 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 front desk host pt signs consent for treatment for this infusion. BP 153/78 Pulse 78 Temp 98.2 ??F Resp 18 Wt 103.4 kg (228 [...] st Contact Info) Description 06/03/2024 1:00 PM DIGITAL CAMPAIGN MANAGER Appointment [facility] - Rheumatology [address] [place] [address] [phone] 06/03/2024 2:00 PM DIGITAL CAMPAIGN MANAGER Office Visit [facility] - Rheumatology [address] [place] [address] Gloria Smith MD [address] [place] [phone] documented as of this encounter Visit Diagnoses Diagnosis Rheumatoid arthritis of multiple sites with negative rheumatoid factor (HCC)- Primary documented in this encounter Administered Medications Inactive Administered Medications - up to 3 most recent administrations Medication Order MAR Action Action Date Dose Rate Site inFLIXimab (REMICADE) 600 mg in 0.9% NaCl IV 250 mL infusion 600 mg, at 125 mL/hr, Intravenous, ONCE, 1 dose, On Sun02/06/20 at 1230, RAPID INFUSION INCLUSION CRITERIA:, -Patient has previously received three standard infliximab infusions at [facility], -Patient has no history of infusion-related hypersensitivity reactions or delayed hypersensitivity reactions to infliximab. Symptoms of hypersensitivity reactions include difficulty breathing, itching, hypotension, fever, rash, headache, or body aches., -Most recent infusion within 12 weeks, EXCLUSION CRITERIA:, -History of infusion-related hypersensitivity reaction or delayed hypersensitivity reaction to infliximab, -Most recent infusion >12 weeks ago, -Patient's dose has been increased and patient is to receive the first increased dose, , Infuse over a minimum of 2 hours. , , Infuse infliximab (REMICADE) in 250ml of NaCl using Standard infusion rate. Refrigerate. Use with in-line filter. $ New Bag/Syringe 02/06/2020 12:04 PM CDT 600 mg 135 mL/hr documented in this encounter Care Teams Papeterie Table Assembler Relationship Specialty Start Date End Date Tomas Hyman MD [address] [place] [address] PCP - General Family Medicine 09/05/18 Isidro Heredia MD Rheumatology 02/09/11 documented as of this encounter
--- OUTSIDE RECORDS SUMMARY | 2024-05-03 04:06 | XMS_ITS | Encounter Summary ---
Author Organization [facility] Address [address] [facility] [place] [address] Care Team Providers Care Tree Farmer Name Role Phone Isidro Heredia MD Unavailable [phone] Tomas Hyman MD Primary Care Provider [phone] Reason for Visit * Reason Onset Date Comments Infusion 09/24/2019 Encounter Details Date Type Department Care Team (Late st Contact Info) Description 09/24/2019 Telephone [facility] Medical [facility] - Rheumatology [id number] [place] [address] Gloria Smith MD [address] [place] [phone] Infusion Social History Tobacco Use Types Packs/Day Years [...] Telephone Encounter - Gloria Smith MD - 09/25/2019 1:45 PM CDT I recommend putting him in a private room for infusion and give him an extra surgical mask tomorrow, even if he is afebrile and without respiratory symptoms. * Telephone Encounter - Carey Loza - 09/25/2019 1:41 PM CDT Called patient back advised dr Smith was off today and requested how he was feeling. He is feeling much better fever head is not as stopped up. Does have allergies so thinks it could have been that. He said he will come in tomorrow unless he starts running a fever. * Telephone Encounter - Carey Loza - 09/25/2019 10:35 AM CDT Do you want to infuse him? His appointment for remicade is Monday 09/25 * Telephone Encounter - Estelita Gonzales MA - 09/24/2019 1:38 PM CDT Pt has has been feeling weak With a clogged up head. His head feels heavy. Pt has slight sore throat with no cough. His infusion is Sunday and pt wants to inform infusion room. Just in case he needs to cancel the infusion. documented in this encounter Plan of Treatment Upcoming Encounters Date Type Department Care Team (Late st Contact Info) Description 06/03/2024 1:00 PM AUTOMOTIVE WINDOW TINTER Appointment [facility] - Rheumatology [address] [place] [phone] 06/03/2024 2:00 PM AUTOMOTIVE WINDOW TINTER Office Visit [facility] - Rheumatology [address] [place] [address] [phone] Gloria Smith MD [address] [place] [phone] documented as of this encounter Visit Diagnoses Not on filedocumented in this encounter Care Teams Tree Farmer Relationship Specialty Start Date End Date Tomas Hyman MD [address] [facility] [address] [place] [address] PCP - General Family Medicine 09/05/18 Isidro Heredia MD Rheumatology 02/09/11 documented as of this encounter
--- OUTSIDE RECORDS SUMMARY | 2024-05-03 04:06 | XMS_ITS | Encounter Summary ---
Author Organization [facility] Address [address] [facility] [place] [address] Care Team Providers Care System Development Engineer Name Role Phone Isidro Heredia MD Unavailable [phone] Tomas Hyman MD Primary Care Provider [phone] Encounter Details Date Type Department Care Team (Latest Contact Info) Description 11/10/2019 Travel Social History Tobacco Use Types Packs/Day [...] st Contact Info) Description 06/03/2024 1:00 PM IN SERVICE EDUCATION TEACHER Appointment [facility] - Rheumatology [address] [place] [address] 06/03/2024 2:00 PM IN SERVICE EDUCATION TEACHER Office Visit [facility] - Rheumatology [address] [place] [address] Gloria Smith MD [address] [place] [phone] documented as of this encounter Visit Diagnoses Not on filedocumented in this encounter Care Teams System Development Engineer Relationship Specialty Start Date End Date Tomas Hyman MD [address] [facility] [address] [place] [address] PCP - General Family Medicine 09/05/18 Isidro Heredia MD Rheumatology 02/09/11 documented as of this encounter
--- OUTSIDE RECORDS SUMMARY | 2024-05-03 04:06 | XMS_ITS | Encounter Summary ---
Author Organization [facility] Address [address] [facility] [place] [address] Care Team Providers Care Welding Engineer Name Role Phone Isidro Heredia MD Unavailable [phone] Tomas Hyman MD Primary Care Provider [phone] Reason for Referral * Auth/Cert (Routine) - Incomplete Specialty Diagnoses / Procedures Referred By Contsarahi t Referred To Contact Diagnoses Rheumatoid arthritis of multiple sites with negative rheumatoid factor (HCC) Procedures CA DRAIN/INJECT LARGE JOINT/BURSA Gloria Dillon MD [address] [place] [address] Referral ID Status Reason Start Date Expiration Date V isits Requested Visits Authorized [id number] Incomplete 08/29/2019 02/25/2020 1 1 Reason for Visit * Reason Comments Arthritis follow up Encounter Details Date Type Department Care Team (Late st Contact Info) Description 08/29/2019 11:40 AM CDT Video Visit [facility] [employer] Medical [facility] - Rheumatology [address] [place] [address] Gloria Dillon MD [address] [place] [address] Rheumatoid arthritis of multiple sites [...] PM CDT documented as of this encounter Patient Instructions * Patient Instructions* Gloria Dillon MD - 08/29/2019 11:18 AM CDT Take prednisone 30mg x 3 days, , 20mg x 7 days, and then 10mg daily. Next remicade infusion in 4 weeks, and then every 6 weeks. documented in this encounter Progress Notes * Gloria Dillon MD - 08/29/2019 11:05 AM CDT CHIEF COMPLAINTS: Follow-up on rheumatoid arthritis HISTORY OF PRESENT ILLNESS: Chalino Deng is a 58 year old white male with past medical history of seropositive rheumatoid arthritis, diverticulitis, sepsis on Actemra, recurrent UTIs, recurrent prostatitis, chronic back pain and lumbar stenosis and spondylosis status post epidural injections, chronic opioids use, who returns for follow-up on rheumatoid arthritis. (Raquel 1:160, ccp 22+ in 2009, rf 10.2) Medication history: mtx 2004-present Remicade 10/2004-08/02/2005 lost efficacy. Resumed in February, - present Orencia 09/13/2005-11/22/2005 allergic reaction Rituxan 12/06/2005-05/01/2006, inadequate response, Humira 08/13/2006, effective. No details. actemra ?- 2018, urosepsis. History of diverticulitis Currently on Remicade 600 mg every 6 weeks, methotrexate 10 mg weekly, prednisone 5 mg b.i.d.. Takes naproxen 200 mg b.i.d., gabapentin 300 mg t.i.d., metaxalone 800 mg q.h.s. Last seen on April 18. Remicade was increased from 400 mg every 6 weeks to 600 mg every 6 weeks,and he had the first high doses on July 17. Methotrexate was decreased to 10 mg per week, and prednisone was decreased to 5 mg b.i.d.. He felt really well after last Remicade for a couple weeks. Buthas been having more pain in joints, chest tenderness, more stiffness, for the last couple of weeks. She used to take Percocet at least 2 tablets per day from Dr. Heredia, but has difficulty getting medication field now, and he stopped Percocet 3-4 weeks ago. Follows with Pain Management and received epidural steroid injection 4 weeks ago with good effect. Denies fever, chills, recent infection, skin rash in, shortness of breath, cough. Patient was diagnosed of rheumatoid arthritis in early when he was in the . Tried infliximab for couple of years with great efficacy but it gradually stopped working. Tried Orencia, Humira, rituximab. The either lost efficacy or caused reaction. Was on Actemra until 2018 when he had urosepsis. Infliximab was restarted in February, with good effect again. He developed an episodeof shingles in November and missed his last infusion. The last infliximab infusion was actually October 28, 2018. He can tell that joint pains have become worse lately. Has swelling in MCP, PIP joints, pain and stiffness in hands shoulders especially on the right, knees, ankles, toes. Pain is general worse in the morning and after activities. Morning stiffness lasts for an hour. Chronic back pain is also worse in the morning with morning stiffness of 1 hr. Denies fever, chills, oral ulcers, nausea, vomiting, diarrhea, hematochezia, Raynaud's, photosensitivity, facial rash. Takes gabapentin, muscle relaxant, naproxen daily for joint pain and neuralgia from shingles. According to the notes, patienthad small erosions in MCP joints on x-ray [...] Neck: supple, nontender, no lymphadenopathy Chest: nontender. Lungs clear to auscultation. Heart: RRR, no m/r/g Abdomen: soft, nontender, bowel sounds heard Extremities: no peripheral swelling, clubbing or cyanosis Skin: Faint erythematous papules in dermatome of the right-sided chest wall and back. Neurologic: sensation grossly intact, strength symmetric and grossly normal. MSK: tenderness and swelling in MCP joints bilaterally, tenderness in left shoulder. No tenderness in the ankles, elbows. Mild tenderness in neck. Left shoulder range of motion is limited because ofpain. Hand director of community life is decreased. LABORATORY: Recent Labs Component Name 03/06/19113310/24/18 1000 07/11/18 0930 WBC 9.4 8.6 7.5 RBC 4.18 3.81* 3.92* HGB 12.6 11.8* 11.6* HCT 41.7 35.9* 35.5* MCV 99.8* 94 91 MCHC 30.2* 32.9 32.7 PLTCOUNT 194 160 192 MONOCYTPCT 6.4 9 6 EOSINPCT 2.2 6 3 LYMPHABS 2.42 2.7 2.5 MONOCYTABS 0.60 0.7 0.4 BASOABS 0.05 0.1 0.1 IMMGRANSABS 0.04 0.0 0.0 Recent Labs Component Name 03/06/19113310/24/18 1000 07/11/18 0930 SODIUM 139 142 138 POTASSIUM 4.3 4.4 4.6 CHLORIDE 103 104 101 CO2 28 23 21 BUN 16 14 15 CREATININE 1.25 1.17 1.13 GLUCOSE 81 95 130* CALCIUM 9.3 9.3 9.2 ALBUMIN 4.3 4.2 4.2 ALKPHOS 56 54 52 ALT 23 25 19 AST 22 25 24 TBIL 0.4 0.4 0.3 TPROT 6.9 6.4 6.5 EGFR 60* 69 73 Recent Labs Component Name 03/06/19 1134 04/07/15 1630 08/12/14 1408 CRP 0.31 <0.29 1.6 Recent Labs Component Name 03/06/19 1134 10/24/18 1000 07/11/18 0930 SEDRATE 6 8 14 IMAGINGS: 07/03/19 MRI L spine: L4-L5 moderate facet arthropathy, central canal and right neural foraminal stenosis. Lessor spondylosis other levels. PROCEDURES: Procedure Name: Left shoulder steroid injection Indication: Pain Side: Left Approach: Posterior Date of procedure: 08/29/2019 Informed Consent and Counseling: The procedure, risks, [...] post-procedure care was explained. ASSESSMENT & PLAN: Seropositive rheumatoid arthritis Left shoulder pain Osteoporosis Chronic back pain and lumbar radiculopathy, following with pain management. (Raquel 1:160, ccp 22+ in 2010, rf 10.2, esr-, crp) 58-year-old white male with seropositive rheumatoid arthritis. On infliximab 600 mg every 6 weeks, methotrexate 10 mg weekly, prednisone 5 mg b.i.d.. Having more pain and stiffness for the last couple of weeks. This is probably caused by rheumatoid arthritis flare, discontinuation of pain medicine,decrease of prednisone. Methotrexate was also decreased but he had never noticed much of methotrexate before. - schedule the next infliximab infusion in 4 weeks. And then every 6 weeks. - instructed patient to take prednisone 30 mg for 3 days, 20 mg for 7 days, and then 10 mg daily. - continue methotrexate 10 mg weekly, folic acid 1 mg daily. - return to clinic in 10 weeks. Left shoulder pain - status post steroid injection today Osteoporosis - repeat DEXA bone density scan - he has been on alendronate since 2015. Will discontinue alendronate after this 90 day refill. Chronic neck and back pain - follows with Pain Management and received epidural injections. - Off Percocet since July,. documented in this encounter Miscellaneous Notes * Addendum Note - Gloria Dillon MD - 08/31/2019 11:10 AM CDTAddended by: GLORIA DILLON on: 08/31/2019 11:10 AM Modules accepted: Orders documented in this encounter Plan of Treatment Upcoming Encounters Date Type Department Care Team (Late st Contact Info) Description 06/03/2024 1:00 PM ART OBJECTS SUPERVISOR Appointment [facility] - Rheumatology [address] [place] [address] [phone] 06/03/2024 2:00 PM ART OBJECTS SUPERVISOR Office Visit [facility] - Rheumatology [address] [place] [address] [phone] Gloria Dillon MD [address] [place] [phone] documented as of this encounter Procedures Procedure Name Priority Date/Time Associated Diagnosis Comments CBC W AUTO DIFFERENTIAL Routine 08/29/2019 12:45 PM CDT Rheumatoid arthritis of multiple sites with negative rheumatoid factor (HCC) COMPREHENSIVE METABOLIC PANEL Routine 08/29/2019 12:45 PM CDT Rheumatoid arthritis of multiple sites with negative rheumatoid factor (HCC) documented in this encounter Results * BASIC METABOLIC PANEL (CALCIUM TOTAL) (09/26/2019 [...] Resulting Agency Comment Lab Testing performed at: [facility] [id number] [place] [address] ?? [facility] [id number] Gloria Dillon MD LAB - CHEMISTRY [facility] INSURANCE BILL [address] [place] [address] * (ABNORMAL) COMPREHENSIVE METABOLIC PANEL (08/29/2019 12:45 PM CDT) Glucose 94 65 - 99 mg/dL [facility] INSURANCE BILL BUN 20 6 - 24 mg/dL [facility] INSURANCE BILL Creatinine 1.57(H) 0.76 - 1.27 mg/dL [facility] INSURANCE BILL eGFR by MDRD 49(L) >59 mL/min/1.7 3 [facility] INSURANCE BILL eGFR by MDRD 56(L) >59 mL/min/1.7 3 [facility] INSURANCE BILL BUN/Creatinine Ratio 13 9 - 20 [facility] INSURANCE BILL Sodium 140 134 - 144 mmol/L [facility] INSURANCE BILL Potassium 4.2 3.5 - 5.2 mmol/L [facility] INSURANCE BILL Chloride 100 96 - 106 mmol/L [facility] INSURANCE BILL CO2 23 20 - 29 mmol/L [facility] INSURANCE BILL Calcium 9.4 8.7 - 10.2 mg/dL [facility] INSURANCE BILL Protein Total 7.1 6.0 - 8.5 g/dL [facility] INSURANCE BILL Albumin 4.3 3.8 - 4.9 g/dL [facility] INSURANCE BILL Globulin Total 2.8 1.5 - 4.5 g/dL [facility] INSURANCE BILL Albumin/Globulin Ratio 1.5 1.2 - 2.2 [facility] INSURANCE BILL Bilirubin Total 0.4 0.0 - 1.2 mg/dL [facility] INSURANCE BILL Alkaline Phosphatase 78 39 - 117 IU/L [facility] INSURANCE BILL AST 22 0 - 40 IU/L [facility] INSURANCE BILL ALT 22 0 - 44 IU/L [facility] INSURANCE BILL Blood BLOOD SPECIMEN / Unknown 08/29/2019 12:45 PM CDT 08/29/2019 Narrative Resulting Agency Comment Lab Testing performed at: [employer] ??[facility] [id number] Gloria Dillon MD LAB - CHEMISTRY MARII ARAU[facility] INSURANCE BILL [address] [place] [address] * (ABNORMAL) CBC WITH DIFFERENTIAL (08/29/2019 12:45 PM CDT) WBC 8.3 3.4 - 10.8 x10E3/uL [facility] INSURANCE BILL RBC 4.39 4.14 - 5.80 x10E6/uL [facility] INSURANCE BILL Hemoglobin 13.1 13.0 - 17.7 g/dL [facility] INSURANCE BILL Hematocrit 39.8 37.5 - 51.0 % [facility] INSURANCE BILL MCV 91 79 - 97 fL [facility] INSURANCE BILL MCH 29.8 26.6 - 33.0 pg [facility] INSURANCE BILL MCHC 32.9 31.5 - 35.7 g/dL [facility] INSURANCE BILL RDW 13.2 11.6 - 15.4 % [facility] INSURANCE BILL Platelet Count 221 150 - 450 x10E3/uL [facility] INSURANCE BILL Granulocytes % 38 Not Estab. % [facility] INSURANCE BILL Lymphocytes % 47 Not Estab. % [facility] INSURANCE BILL Monocytes % 9 Not Estab. % [facility] INSURANCE BILL Eosinophils % 5 Not Estab. % [facility] INSURANCE BILL Basophils % 1 Not Estab. % [facility] INSURANCE BILL Immature Cells NOT NEEDED [facility] INSURANCE BILL Comment:Ancillary determined the test is not needed. Granulocytes Absolute 3.2 1.4 - 7.0 x10E3/uL [facility] INSURANCE BILL Lymphocytes Absolute 3.9(H) 0.7 - 3.1 x10E3/uL [facility] INSURANCE BILL [...] not needed. Blood BLOOD SPECIMEN / Unknown 08/29/2019 12:45 PM CDT 08/29/2019 Narrative Resulting Agency Comment Lab Testing performed at: [facility] [address] [facility] ??[facility] [id number] Gloria Dillon MD LAB - HEMATOLOGY ORD ERABLES [facility] INSURANCE BILL [address] [place] [address] documented in this encounter Visit Diagnoses Diagnosis Rheumatoid arthritis of multiple sites with negative rheumatoid factor (HCC)- Primary documented in this encounter Administered Medications Inactive Administered Medications - up to 3 most recent administrations Medication Order MAR Action Action Date Dose Rate Site lidocaine (XYLOCAINE MPF) 1 % injection Infiltration, ONCE, 1 dose, On Sun08/29/19 at 1145 $ Given 08/29/2019 11:22 AM CDT Left Shoulder methylPREDNISolone acetate (DEPO-Medrol) injection 40 mg 40 mg, Intra-articular, ONCE, 1 dose, On Sun08/29/19 at 1145 $ Given 08/29/2019 11:23 AM CDT 40 mg Left Shoulder documented in this encounter Care Teams Welding Engineer Relationship Specialty Start Date End Date Tomas Hyman MD [address] [address] [address] [place] [address] PCP - General Family Medicine 09/05/18 Isidro Heredia MD Rheumatology 02/09/11 documented as of this encounter
--- OUTSIDE RECORDS SUMMARY | 2024-05-03 04:06 | XMS_ITS | Encounter Summary ---
Author Organization [facility] Address [address] [place] [address] Care Team Providers Care College Sports Assistant Name Role Phone Isidro Heredia MD Unavailable [phone] Tomas Hyman MD Primary Care Provider [phone] Reason for Visit * Reason Comments Arthritis follow up Encounter Details Date Type Department Care Team (Late st Contact Info) Description 11/10/2019 10:40 AM CDT Office Visit [facility] - Rheumatology [address] [place] [address] Gloria Smith MD [address] [place] [phone] Rheumatoid arthritis of multiple sites with [...] Sign Reading Time Taken Comments Blood Pressure 125/84 11/10/2019 10:34 AM CDT Pulse 75 11/10/2019 10:34 AM CDT Temperature 35.5 ??C (95.9 ??F) 11/10/2019 10:34 AM C DT Respiratory Rate - - Oxygen Saturation - - Inhaled Oxygen Concentration - - Weight 107 kg (236 lb) 11/10/2019 10:34 AM CDT Height 177.8 cm (5' 10 ) 11/10/2019 10:34 AM CDT Body Mass Index 33.86 11/10/2019 10:34 AM CDT documented in this encounter Progress Notes * Gloria Smith MD - 11/10/2019 11:15 AM CDT CHIEF COMPLAINTS: Follow-up on rheumatoid [...] weeks, methotrexate 10 mg weekly, prednisone 5 mg. Takes naproxen 200 mg b.i.d., gabapentin 300 mg t.i.d., metaxalone 800 mg q.h.s. Last seen on August 29, 2019. He received infliximab 600 mg 4 weeks after the infusion on August 28, and then receiving another dose today which is 6 weeks later. Infliximab side effects last for about 4 weeks. He was doing fine with mild pain that was tolerable, intermittent mild swelling in hands. For the last 1 week, he has been having more pain and swelling in hands which are constant, pain in the neck, shoulders. Severe fatigue. It is difficulty for him to work on anything. Morning stiffness is prolonged. Denies fever, chills, recent infection, oral ulcers, nausea. RA: Patient was diagnosed of rheumatoid arthritis [...] except as per HPI. PHYSICAL EXAM: BP 125/84 Pulse 75 Temp 95.9 ??F (35.5 ??C) Ht 1.778 m (5' 10 ) Wt 107 kg (236 lb) BMI 33.86 kg/m2 General: in no acute distress. HEENT: anicteric sclera, no conjunctival injection, PERRL, no oral ulcers. Neck: supple, nontender, no lymphadenopathy Chest: nontender. Abdomen: soft, nontender Extremities: no peripheral swelling, clubbing or cyanosis Skin: Faint erythematous papules in dermatome of the right-sided chest wall and back. Neurologic: Moves all extremities MSK: Bilateral hand swollen in all fingers. Hand block layer decreased bilaterally. Shoulder range of motion decreased bilaterally due to pain. LABORATORY: Recent Labs Component Name 08/29/19 1245 [...] Lessor spondylosis other levels. ASSESSMENT & PLAN: Seropositive rheumatoid arthritis Osteoporosis Chronic back pain and lumbar radiculopathy, following with pain management. (Raquel 1:160, ccp 22+ in 2010, rf 10.2, esr-, crp) 59-year-old white male with seropositive rheumatoid arthritis. Rheumatoid arthritis had good response to Remicade 600 mg but the effect only lasts for 4 weeks. Also on methotrexate 10 mg per week which by itself was not effective, prednisone 5 mg daily. Rheumatoid arthritis is flaring for the last week. - increase Remicade to 600 mg every 4 weeks. - Continue methotrexate 10 mg per week, folic acid 1 mg daily. - continue prednisone 5 mg daily - return to clinic in 3 months Osteoporosis - repeat DEXA bone density scan - took alendronate from [phone]. Chronic neck and back pain - follows with Pain Management and received epidural injections. - Off Percocet since July,. documented in this encounter Plan of Treatment Upcoming Encounters Date Type Department Care Team (Late st Contact Info) Description 06/03/2024 1:00 PM CORE DRILLER HELPER Appointment [facility] - Rheumatology [address] [place] [address] 06/03/2024 2:00 PM CORE DRILLER HELPER Office Visit [facility] - Rheumatology [address] [place] [address] [phone] Gloria Smith MD [address] [place] [phone] documented as of this encounter Visit Diagnoses Diagnosis Rheumatoid arthritis of multiple sites with negative rheumatoid factor (HCC)- Primary documented in this encounter Care Teams College Sports Assistant Relationship Specialty Start Date End Date Tomas Hyman MD [address] [place] [address] PCP - General Family Medicine 09/05/18 Isidro Heredia MD Rheumatology 02/09/11 documented as of this encounter
--- OUTSIDE RECORDS SUMMARY | 2024-05-03 04:06 | XMS_ITS | Encounter Summary ---
Author Organization [facility] Address [address] [facility] [place] [address] Care Team Providers Care Market Analyst Name Role Phone Isidro Heredia MD Unavailable [phone] Tomas Hyman MD Primary Care Provider [phone] Reason for Visit * Reason Onset Date Comments MEDICATION REFILL 10/23/2019 Encounter Details Date Type Department Care Team (Late st Contact Info) Description 10/23/2019 Refill [facility] - Rheumatology [address] [place] [address] Gloria Smith MD [address] [place] [phone] MEDICATION REFILL Social History Tobacco Use [...] Telephone Encounter - Ella Peters - 10/23/2019 2:58 PM CDT Nov:11/10/19 Carrie:08/29/19 documented in this encounter Plan of Treatment Upcoming Encounters Date Type Department Care Team (Late st Contact Info) Description 06/03/2024 1:00 PM SPECIALTY THERAPIST Appointment [facility] - Rheumatology [address] [place] [address] [phone] 06/03/2024 2:00 PM SPECIALTY THERAPIST Office Visit [facility] - Rheumatology [address] [place] [address] Gloria Smith MD [address] [place] [phone] documented as of this encounter Visit Diagnoses Not on filedocumented in this encounter Care Teams Market Analyst Relationship Specialty Start Date End Date Tomas Hyman MD [address] [facility] [address] [place] [address] PCP - General Family Medicine 09/05/18 Isidro Heredia MD Rheumatology 02/09/11 documented as of this encounter
--- OUTSIDE RECORDS SUMMARY | 2024-05-03 04:06 | XMS_ITS | Encounter Summary ---
Author Organization [facility] Address [address] [facility] [place] [address] Care Team Providers Care Teacher Visually Impaired Name Role Phone Isidro Heredia MD Unavailable [phone] Tomas Hyman MD Primary Care Provider [phone] Encounter Details Date Type Department Care Team (Latest Contact Info) Description 12/15/2019 Travel Social History Tobacco Use Types Packs/Day [...] st Contact Info) Description 06/03/2024 1:00 PM [address] Appoint[address] [facility] - Rheumatology [address] [place] [address] 06/03/2024 2:00 PM PRODUCTION CLERK Office Visit [facility] - Rheumatology [address] [place] [address] Gloria Smith MD [address] [place] [phone] documented as of this encounter Visit Diagnoses Not on filedocumented in this encounter Care Teams Teacher Visually Impaired Relationship Specialty Start Date End Date Tomas Hyman MD [address] [facility] [address] [place] [address] PCP - General Family Medicine 09/05/18 Isidro Heredia MD Rheumatology 02/09/11 documented as of this encounter
--- OUTSIDE RECORDS SUMMARY | 2024-05-03 04:06 | XMS_ITS | Encounter Summary ---
Author Organization [facility] Address [address] [facility] [place] [address] Care Team Providers Care Drop Worker Name Role Phone Isidro Heredia MD Unavailable [phone] Tomas Hyman MD Primary Care Provider [phone] Reason for Visit * Treatment (Routine) - Closed Specialty Diagnoses / Procedures Referred By Lawrence shah Referred To Contact Infusion Therapy Nurse Diagnoses Rheumatoid arthritis without rheumatoid factor, multiple sites (HCC) Procedures [place] INFLIXIMAB INJECTION Gloria Smith MD [address] [place] [address] [address] Referral ID Status Reason Start Date Expiration Date Visits Re quested Visits Authorized [id number] Closed 05/09/2019 04/29/2020 1 12 Encounter Details Date Type Department Care Team (Late st Contact Info) Description 11/10/2019 9:38 AM CDT - 11/10/2019 11:59 PM CDT Hospital Encounter [facility] Medical [facility] - Rheumatology [address] [place] [address] Gloria Smith MD [facility] [place] [address] Discharge Disposition: Home or Self [...] Time Taken Comments Blood Pressure 125/84 11/10/2019 10:04 AM CDT Pulse 75 11/10/2019 10:04 AM CDT Temperature 35.5 ??C (95.9 ??F) 11/10/2019 10:04 AM C DT Respiratory Rate 18 11/10/2019 10:04 AM CDT Oxygen Saturation - - Inhaled Oxygen Concentration - - Weight - - Height - - Body Mass Index - - documented in this encounter Discharge Instructions * Discharge Instructions* Jody Sahu RN - 11/10/2019 10:10 AM CDT [place] Rheumatology Post Infusion instructions You have received [...] rash or breathing problems please call your [facility] Rheumatology physician for further instructions. While most problems that occur around the time of an infusion are very mild and not dangerous, they should not be ignored. Sunday through 01-02 call the office at [phone] After hours or on the weekend call the exchange at [phone] If you have had lab work done [...] you and are glad you have chosen [facility] as your provider. Jody Sahu RN documented in this encounter Medications at Time of Discharge Medication Sig Dispensed Refills Start Date End Date atorvastatin (LIPITOR) 40 MG tablet Take 1 (one) tablet by mouth at bedtime mjwridnrwwj-tyqy-vp lysorb, PF, 0.5-1-0.5 % SOLN Instill 1 [...] Progress Notes * Jody Sahu, RN - 11/10/2019 10:00 AM CDT JOSE Chalino Deng [id number] 11/10/2019 Diagnosis: Rheumatoid arthritis without rheumatoid factor, multiple sites [M06.09]. Pt denies symptoms of infection or antibiotic use, no open wounds, or recent surgery, or plans for surgery in the next couple of weeks. Pt is aware that we use the 0-10 pain scale to assess discomfort. 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 medical front desk coordinator pt signs consent for treatment for this infusion. BP 125/84 Pulse 75 Temp 95.9 ??F Resp 18 @ MEDICATIONS FOR CURRENT ENCOUNTER: ?? CONTINUOUS MEDICATIONS: ?? inFLIXimab (REMICADE) 600 mg in 0.9% NaCl 250 mL infusion, Intravenous, Continuous ?? Number of 24 gauge 3/4 inch placed in Left antecubital ?? 1 attempt(s). Patient monitored throughout procedure. Tolerated well? Yes Next treatment? 6 weeks At OV, Dr Smith increased remicade to 600mg every 4 weeks Jody Sahu, TOVA documented in this encounter Plan of Treatment Upcoming Encounters Date Type Department Care Team (Late st Contact Info) Description 06/03/2024 1:00 PM FIRE CLAIMS ADJUSTER Appointment [facility] - Rheumatology [address] [place] [address] 06/03/2024 2:00 PM FIRE CLAIMS ADJUSTER Office Visit [facility] - Rheumatology [address] [place] [address] Gloria Smith MD [address] [place] [phone] documented as of this encounter Visit Diagnoses Diagnosis Rheumatoid arthritis of multiple sites with negative rheumatoid factor (HCC)- Primary documented in this encounter Administered Medications Inactive Administered Medications - up to 3 most recent administrations Medication Order MAR Action Action Date Dose Rate Site inFLIXimab (REMICADE) 600 mg in 0.9% NaCl 250 mL infusion 600 mg, Intravenous, CONTINUOUS, Starting on Sun11/10/19 at 1030, Until Sun11/10/19 at 1229, Infuse over a minimum of 2 hours. [...] Use with in-line filter. $ New Bag/Syringe 11/10/2019 10:17 AM CDT 600 mg 135 mL/hr documented in this encounter Care Teams Drop Worker Relationship Specialty Start Date End Date Tomas Hyman MD [address] [facility] [address] [place] [id number] PCP - General Family Medicine 09/05/18 Isidro Heredia MD Rheumatology 02/09/11 documented as of this encounter
--- OUTSIDE RECORDS SUMMARY | 2024-05-03 04:06 | XMS_ITS | Encounter Summary ---
Author Organization [facility] Address [address] [facility] [place] [address] Care Team Providers Care Tube Bender Name Role Phone Isidro Heredia MD Unavailable Tomas Hyman MD Primary Care Provider [phone] Reason for Visit * Reason Onset Date Comments MEDICATION REFILL 10/24/2019 MEDICATION REFILL 11/10/2019 Encounter Details Date Type Department Care Team (Late st Contact Info) Description 10/24/2019 Refill [facility] Medical [facility] - Rheumatology [address] [place] [address] Gloria Smith MD [address] [place] [phone] MEDICATION REFILL; MEDICATION REFILL Social History [...] encounter Miscellaneous Notes * Telephone Encounter - Mora Mark - 11/10/2019 3:37 PM CDT Closing based on open encounter report - see dr hernandes note below * Telephone Encounter - Gloria Smith MD - 10/24/2019 3:45 PM CDT Please let patient know to contact primary care physician for renewal of aspirin in the future. * Telephone Encounter - Ella Peters - 10/24/2019 2:55 PM CDT Nov:11/10/19 Carrie:08/29/19 documented in this encounter Plan of Treatment Upcoming Encounters Date Type Department Care Team (Late st Contact Info) Description 06/03/2024 1:00 PM TOUCH UP CARVER Appointment [facility] - Rheumatology [address] [place] [phone] 06/03/2024 2:00 PM TOUCH UP CARVER Office Visit [facility] - Rheumatology [address] [place] [address] [phone] Gloria Smith MD [address] [place] [phone] documented as of this encounter Visit Diagnoses Not on filedocumented in this encounter Care Teams Tube Bender Relationship Specialty Start Date End Date Tomas Hyman MD [address] [facility] [address] [place] [address] PCP - General Family Medicine 09/05/18 Isidro Heredia MD Rheumatology 02/09/11 documented as of this encounter
--- OUTSIDE RECORDS SUMMARY | 2024-05-03 04:06 | XMS_ITS | Encounter Summary ---
Author Organization [facility] Address [address] [facility] [place] [address] Care Team Providers Care Wood Cutter Name Role Phone Isidro Heredia MD Unavailable [phone] Tomas Hyman MD Primary Care Provider [phone] Encounter Details Date Type Department Care Team (Late Contact Info) Description 08/29/2019 Orders Only [facility] - Rheumatology [address] [place] [address] Gloria Smith MD [address] [place] [phone] Social History Tobacco Use Types Packs/Day [...] (Late Contact Info) Description 06/03/2024 1:00 PM HOSPITAL UNIT COORDINATOR Appointment [facility] - Rheumatology [address] [place] [address] 06/03/2024 2:00 PM HOSPITAL UNIT COORDINATOR Office Visit [facility] - Rheumatology [address] [place] [address] Gloria Smith MD [address] [place] [phone] documented as of this encounter Visit Diagnoses Not on filedocumented in this encounter Care Teams Wood Cutter Relationship Specialty Start Date End Date Tomas Hyman MD [address] [facility] [address] [place] [address] PCP - General Family Medicine 09/05/18 Isidro Heredia MD Rheumatology 02/09/11 documented as of this encounter
--- OUTSIDE RECORDS SUMMARY | 2024-05-03 04:06 | XMS_ITS | Encounter Summary ---
Author Organization [facility] Address [address] [facility] [place] [address] Care Team Providers Care Cooperative Extension Agent Name Role Phone Isidro Heredia MD Unavailable [phone] Tomas Hyman MD Primary Care Provider [phone] Encounter Details Date Type Department Care Team (Late Contact Info) Description 09/17/2019 Orders Only [facility] - Rheumatology [address] [place] [address] Gloria Smith MD [address] [place] [phone] Rheumatoid arthritis of multiple sites with [...] (Late Contact Info) Description 06/03/2024 1:00 PM COURTROOM DEPUTY Appointment [facility] - Rheumatology [address] [place] [address] 06/03/2024 2:00 PM COURTROOM DEPUTY Office Visit [facility] - Rheumatology [address] [place] [phone] Gloria Smith MD [address] [place], [place] [address] [phone] documented as of this encounter Procedures Procedure Name Priority Date/Time Associated Diagnosis Comments BASIC METABOLIC PANEL (CALCIUM TOTAL) Routine 09/26/2019 1:18 PM CDT Rheumatoid arthritis of multiple sites [...] Resulting Agency Comment Lab Testing performed at: [facility] [address] ?? [place] [id number] Gloria Smith MD LAB - CHEMISTRY [facility] INSURANCE BILL [address] [place] [address] documented in this encounter Visit Diagnoses Diagnosis Rheumatoid arthritis of multiple sites with negative rheumatoid factor (HCC) documented in this encounter Care Teams Cooperative Extension Agent Relationship Specialty Start Date End Date Tomas Hyman MD [address] [place] [address] PCP - General Family Medicine 09/05/18 Isidro Heredia MD Rheumatology 02/09/11 documented as of this encounter
--- OUTSIDE RECORDS SUMMARY | 2024-05-03 04:07 | XMS_ITS | Encounter Summary ---
Author Organization [facility] Address [address] [facility] [place] [address] Care Team Providers Care Laborer Construction Or Leak Gang Name Role Phone Isidro Heredia MD Unavailable [phone] Tomas Hyman MD Primary Care Provider [phone] Reason for Visit * Treatment (Routine) - Closed Specialty Diagnoses / Procedures Referred By Lawrence shah Referred To Contact Infusion Therapy Nurse Diagnoses Rheumatoid arthritis without rheumatoid factor, multiple sites (HCC) Procedures [place] INFLIXIMAB INJECTION Isidro Heredia MD [address] [place] [address] [address] Referral ID Status Reason Start Date Expiration Date Visits Re quested Visits Authorized [id number] Closed 05/13/2018 04/29/2019 1 12 Encounter Details Date Type Department Care Team (Late st Contact Info) Description 01/24/2019 12:32 PM CDT - 01/24/2019 11:59 PM CDT Hospital Encounter [facility] Medical [facility] - Rheumatology [address] [place] [address] Gloria Simth MD [address] [place] [phone] Discharge Disposition: Home or Self Care [...] Sign Reading Time Taken Comments Blood Pressure 127/82 01/24/2019 1:07 PM CDT Pulse 82 01/24/2019 1:07 PM CDT Temperature 37.2 ??C (99 ??F) 01/24/2019 1:07 PM CDT Respiratory Rate 16 01/24/2019 1:07 PM CDT Oxygen Saturation - - Inhaled Oxygen Concentration - - Weight 109.3 kg (241 lb) 01/24/2019 1:07 PM CDT Height - - Body Mass Index 34.58 09/05/2018 10:54 AM CDT documented in this encounter Discharge Instructions * Discharge Instructions* Jody Sahu RN - 01/24/2019 1:18 PM CDT [place] Rheumatology Post Infusion instructions You have received [...] rash or breathing problems please call your [facility] Rheumatology physician for further instructions. While most problems that occur around the time of an infusion are very mild and not dangerous, they should not be ignored. Sunday through 01-02 call the office at [phone] After hours or on the weekend call the exchange at [phone] If you have had lab work done [...] you and are glad you have chosen [facility] as your provider. Jody Sahu RN documented in this encounter Medications at Time of Discharge Medication Sig Dispensed Refills Start Date End Date atorvastatin (LIPITOR) 40 MG tablet Take 1 (one) tablet by mouth at bedtime wljfndftmsy-vdyy-jym ysorb, PF, 0.5-1-0.5 % SOLN Instill 1 [...] tablet by mouth once daily Seasonal (nov alendronate (FOSAMAX) 70 MG tablet TAKE 1 TABLET EVERY 7 DAYS BEFORE A MEAL IN THE MORNING WITH FULL GLASS OF WATER ON AN EMPTY STOMACH AND REMAIN UPRIGHT FOR 30 MINUTES 12 tablet 2 11/21/2017 04/14/2019 aspirin EC (ECOTRIN) 81 MG tablet Take 1 Tab by mouth once daily 90 Tab 3 07/19/2015 04/14/2019 buPROPion (WELLBUTRIN) 100 MG tablet Take 100 mg by mouth once daily 11/10/2019 carvedilol (COREG) 12.5 MG tablet TAKE 1 TABLET TWICE A DAY WITH MORNING AND EVENING MEALS (NEED TO START GETTING FROM PRIMARY CARE PHYSICIAN) 180 tablet 2 11/21/2017 11/10/2019 cyclobenzaprine (FLEXERIL) 10 MG tablet Take 1 tablet by mouth at bedtime 30 tablet 3 01/08/2019 04/18/2019 gabapentin (NEURONTIN) 300 MG capsule Take 1 capsule by mouth 3 times daily 270 capsule 1 01/08/2019 07/13/2019 InFLIXimab (REMICADE IV) 600 mg by Intravenous route as directed Every 4 weeks 11/16/2020 methotrexate 2.5 MG tablet Take 6 tablets by mouth every 7 days 72 tablet 2 12/12/2018 04/05/2020 naproxen (NAPROSYN) 500 MG tablet Take 1 tablet by mouth 2 times daily 180 tablet 2 12/12/2018 10/23/2019 oxyCODONE-acetaminop hen (PERCOCET) 5-325 MG tablet Take 1 tablet by mouth every 6 hours as needed for Pain Dx: 714.0 RA 120 tablet 12/12/2018 11/10/2019 pantoprazole EC (PROTONIX) 40 MG tablet Take 1 tablet by mouth once daily 90 tablet 01/08/2019 04/14/2019 predniSONE (DELTASONE) 10 MG tablet Take 1 tablet by mouth 2 times daily 180 tablet 1 12/12/2018 07/14/2019 documented as of this encounter Progress Notes * Jody Sahu RN - 01/24/2019 1:21 PM CDT JOSE Deng [id number] 01/24/2019 Diagnosis: Rheumatoid arthritis without rheumatoid factor, multiple sites [M06.09]. Pt denies symptoms of infection or antibiotic use, no open wounds, or recent surgery, or plans for surgery in the next couple of weeks. Pt is aware that we use the 0-10 pain scale to assess discomfort. 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 front office representative pt signs consent for treatment for this infusion. BP 127/82 Pulse 82 Temp 99 ??F Resp 16 Wt 109.3 kg (241 lb) BMI 34.58 kg/m2 @ MEDICATIONS FOR CURRENT ENCOUNTER: ?? CONTINUOUS MEDICATIONS: ?? inFLIXimab (REMICADE) 400 mg in 0.9% NaCl 250 mL infusion, Intravenous, Continuous ?? Number of 24 gauge 3/4 inch placed in Right antecubital ?? 1 attempt(s). Patient monitored throughout procedure. Tolerated well? Yes Next treatment? 7 weeks Jody Sahu RN documented in this encounter Plan of Treatment Upcoming Encounters Date Type Department Care Team (Late st Contact Info) Description 06/03/2024 1:00 PM APPAREL FASHION DESIGNER Appointment [facility] - Rheumatology [address] [place] [address] [phone] 06/03/2024 2:00 PM APPAREL FASHION DESIGNER Office Visit [facility] - Rheumatology [address] [place] [address] Gloria Smith MD [address] [place] [phone] documented as of this encounter Visit Diagnoses Diagnosis Rheumatoid arthritis of multiple sites with negative rheumatoid factor (HCC)- Primary documented in this encounter Administered Medications Inactive Administered Medications - up to 3 most recent administrations Medication Order MAR Action Action Date Dose Rate Site inFLIXimab (REMICADE) 400 mg in 0.9% NaCl 250 mL infusion 400 mg, at 10-250 mL/hr, Intravenous, CONTINUOUS, Starting on 01/24/19 at 1330, Until 01/25/19 at 0117, Refrigerate. Use with in-line filter. Infuse over a minimum of 2 hours. [...] diluted to a final concentration of 0.4-4mg/ml. Stable 6hrs RT Refrigerate. Use with in-line filter. $ New Bag/Syringe 01/24/2019 1:02 PM CDT 400 mg 135 mL/hr documented in this encounter Care Teams Laborer Construction Or Leak Gang Relationship Specialty Start Date End Date Tomas Hyman MD [address] [facility] [address] [place] [phone] PCP - General Family Medicine 09/05/18 Isidro Heredia MD Rheumatology 02/09/11 documented as of this encounter
--- OUTSIDE RECORDS SUMMARY | 2024-05-03 04:07 | XMS_ITS | Encounter Summary ---
Author Organization [facility] Address [address] [facility] [place] [address] Care Team Providers Care Grinder Set Up Operator Thread Name Role Phone Isidro Heredia MD Unavailable [phone] Tomas Hyman MD Primary Care Provider [phone] Reason for Visit * Reason Comments Arthritis follow up Encounter Details Date Type Department Care Team (Late st Contact Info) Description 09/05/2018 11:15 AM CDT Office Visit [facility] - Rheumatology [address] [place] [address] Isidro Heredia MD [address] [place] [id number] Chronic right-sided low back pain with right-sided sciatica (Primary Dx); Rheumatoid arthritis of multiple sites with negative rheumatoid factor (HCC); Chronic pain syndrome Social History Tobacco Use Types Packs/Day Years [...] Sign Reading Time Taken Comments Blood Pressure 148/80 09/05/2018 10:54 AM CDT Pulse 74 09/05/2018 10:54 AM CDT Temperature - - Respiratory Rate - - Oxygen Saturation - - Inhaled Oxygen Concentration - - Weight 112.5 kg (248 lb) 09/05/2018 10:54 AM CDT Height 177.8 cm (5' 10 ) 09/05/2018 10:54 AM CDT Body Mass Index 35.58 09/05/2018 10:54 AM CDT documented in this encounter Progress Notes * Isidro Heredia MD - 09/05/2018 11:42 AM CDT Subjective: Chalino Deng 57 year old male is here for Chief Complaint Patient presents with ??? Arthritis follow up HPI: On mtx remicade q 8 weeks naprosyn for ra On percocet Pain Level 8/10 Left foot all over and Lower back Am stiffness 1 hr Global 5/10 Fatigue yes Medication Side Effects none BP Readings from Last 2 Encounters: 09/05/18 148/80 09/05/18 142/75 Wt Readings from Last 2 Encounters: 09/05/18 112.5 kg (248 lb) 09/05/18 114.3 kg (252 lb) Temp Readings from Last 2 Encounters: 09/05/18 98.2 ??F (36.8 ??C) 07/11/18 98.7 ??F (37.1 ??C) Pulse Readings from Last 2 Encounters: 09/05/18 74 09/05/18 77 Current Outpatient Prescriptions on File Prior to Visit Medication Sig Dispense Refill ??? alendronate (FOSAMAX) 70 MG tablet TAKE 1 TABLET EVERY 7 DAYS BEFORE A MEAL IN THE MORNING WITHFULL GLASS OF WATER ON AN EMPTY STOMACH AND REMAIN UPRIGHT FOR 30 MINUTES 12 tablet 2 ??? aspirin EC (ECOTRIN) 81 MG tablet Take 1 Tab by mouth once daily 90 Tab 3 ??? atorvastatin (LIPITOR) 40 MG tablet Take 40 mg by mouth at bedtime ??? buPROPion (WELLBUTRIN) 100 MG tablet Take 100 mg by mouth once daily ??? carvedilol (COREG) 12.5 MG tablet TAKE 1 TABLET TWICE A DAY WITH MORNING AND EVENING MEALS (NEED TO START GETTING FROM PRIMARY CARE PHYSICIAN) 180 tablet 2 ??? ferrous sulfate 325 (65 FE) MG tablet Take 325 mg by mouth once daily ??? gabapentin (NEURONTIN) 300 MG capsule Take 1 capsule by mouth 2 times daily 180 capsule 3 ??? Zwrtmhgxnrt-Nfuxwiksp-Acr C-Mn (GLUCOSAMINE CHONDR 1500 COMPLX PO) Take 1 Tab by mouth once daily ??? hydroCHLOROthiazide (HYDRODIURIL) 25 MG tablet Take 25 mg by mouth once daily ??? icosapent ethyl (VASCEPA) 1 G capsule Take 2 g by mouth 2 times daily with morning and evening meal ??? InFLIXimab (REMICADE IV) 300 mg by Intravenous route as directed Every 8 weeks ??? Magnesium Citrate 100 MG TABS Take 1 tablet by mouth every other day ??? methotrexate 2.5 MG tablet TAKE 6 TABLETS EVERY 7 DAYS 72 tablet 2 ??? Multiple Vitamin (MULTI-VITAMIN PO) Take 1 Tab by mouth once daily ??? Multiple Vitamins-Minerals (OCUVITE ADULT 50+ PO) Take 1 tablet by mouth every other day ??? naproxen (NAPROSYN) 500 MG tablet 1 tablet 2 times daily 180 tablet 2 ??? pantoprazole EC (PROTONIX) 40 MG tablet Take 1 tablet by mouth once daily 90 tablet 3 ??? Potassium 99 MG tablet Take 49.5 mg by mouth 2 times daily ??? predniSONE (DELTASONE) 10 MG tablet TAKE 1 TABLET TWICE A DAY (Patient taking differently: 5 mgtwice daily) 180 tablet 1 ??? ZYRTEC 10 MG TABS Take 10 mg by mouth once daily. Seasonal (nov. No current facility-administered medications on file prior to visit. Patient Active Problem List: Rheumatoid arthritis of multiple sites with negative rheumatoid factor GERD (gastroesophageal reflux disease) Osteopenia Anemia Subacromial bursitis Chronic pain syndrome Pain medication agreement signed Other and unspecified hyperlipidemia Lumbar radiculopathy Abnormal LFTs Chronic right-sided low back pain with right-sided sciatica Triceps tendonitis Triceps tendonitis History Smoking Status ??? Never Smoker Smokeless Tobacco ??? Never Used History Alcohol Use No History Drug Use Not on file Review of Systems: General: No fever, chills, sweats, weight loss Eyes: No redness, discharge, blurred vision ENMT: No ear ache, loss of hearing, runny nose, sore gums, ulcers, sore throat CV: No chest pain, palpitations, orthopnea, syncope Resp: No shortness of breath, cough, pleurisy, wheezing GI No nausea vomiting, abdominal pain, weight loss, anorexia, gerd, melena, diarrhea No nocturia, dysuria, frequency, urgency, kidney stones. NEURO: No headaches, seizures, dizziness, confusion, numbness, tingling HEME/LYMPH: No bruising or bleeding, swollen glands SKIN: No rash, itching, dry skin ENDO No Heat or cold intol, no hyper or hypoglycemia PSYCH: No memory loss, disorientation, confusion, mood changes, ALLERGY/IMMU No runny nose, tearing, sneezing, cough, eye irritation Systems reviewed genl heart lungs Objective: General Appearance Physical Exam: BP 148/80 Pulse 74 Ht 1.778 m (5' 10 ) Wt 112.5 kg (248 lb) BMI 35.58 kg/m2 Head: perrla, eyes no irritation, vision and hearing intact, no oral ulcers, tongue normal, throat clear Neck:supple, no bruits, adenopathy Chest: clear, no rales, rhonchi or wheezes. Heart nsr. No S3,S4, or murmurs Abdomen:soft, no masses or tenderness, no organomegaly Genitalia, Groin, Buttocks: Back: no abnormal curvature, tenderness, or muscle spasm Extremities: No edema, cyanosis, or rash RUE: 8/TJ, 2/SJ, 0/muscle tenderness or weakness LUE: 8/TJ, 2/SJ, 0/muscle tenderness or weakness RLE: 0/TJ, 0/SJ, 0/muscle tenderness or weakness LLE: 0/TJ, 0/SJ, 0/muscle tenderness or weakness Assessment: Encounter Diagnoses Name Primary? Chronic right-sided low back pain with right-sided sciatica Yes ??? Rheumatoid arthritis of multiple sites with negative rheumatoid factor ??? Chronic pain syndrome Poorly Controlled ra and chronic pain inc remicade to q 7 weeeks Plan: Plan Orders Placed This Encounter ??? DISCONTD: oxyCODONE-acetaminophen (PERCOCET) 5-325 MG tablet Sig: Take 1 tablet by mouth every 6 hours as needed for Pain Dx: 714.0 RA Dispense: 120 tablet Refill: 0 ??? oxyCODONE-acetaminophen (PERCOCET) 5-325 MG tablet Sig: Take 1 tablet by mouth every 6 hours as needed for Pain Dx: 714.0 RA Dispense: 120 tablet Refill: 0 Follow up in office in 8 weeks documented in this encounter Plan of Treatment Upcoming Encounters Date Type Department Care Team (Late st Contact Info) Description 06/03/2024 1:00 PM SAFETY AND SECURITY MANAGER Appointment [facility] - Rheumatology [address] [place] [address] 06/03/2024 2:00 PM SAFETY AND SECURITY MANAGER Office Visit [facility] - Rheumatology [address] [place] [address] Gloria Smith MD [address] [place] [phone] documented as of this encounter Visit Diagnoses Diagnosis Chronic right-sided low back pain with right-sided sciatica- Primary Rheumatoid arthritis of multiple sites with negative rheumatoid factor (HCC) Chronic pain syndrome documented in this encounter Care Teams Grinder Set Up Operator Thread Relationship Specialty Start Date End Date Tomas Hyman MD [address] [facility] [address] [place] [address] PCP - General Family Medicine 09/05/18 Isidro Heredia MD Rheumatology 02/09/11 documented as of this encounter
--- OUTSIDE RECORDS SUMMARY | 2024-05-03 04:07 | XMS_ITS | Encounter Summary ---
Author Organization [facility] Address [address] [facility] [address] [place] [address] Care Team Providers Care Green Plumber Name Role Phone Isidro Heredia MD Unavailable [phone] Tomas Hyman MD Primary Care Provider [phone] Encounter Details Date Type Department Care Team (Latest Contact Info) Description 07/18/2019 Travel Social History Tobacco Use Types Packs/Day [...] st Contact Info) Description 06/03/2024 1:00 PM NODE JS DEVELOPER Appointment [facility] Medical [facility] - Rheumatology [address] [place] [address] 06/03/2024 2:00 PM NODE JS DEVELOPER Office Visit [facility] Medical [facility] - Rheumatology [address] [place] [address] Gloria Smith MD [address] [place] [phone] documented as of this encounter Visit Diagnoses Not on filedocumented in this encounter Care Teams Green Plumber Relationship Specialty Start Date End Date Tomas Hyman MD [address] [place] [address] PCP - General Family Medicine 09/05/18 Isidro Heredia MD Rheumatology 02/09/11 documented as of this encounter
--- OUTSIDE RECORDS SUMMARY | 2024-05-03 04:07 | XMS_ITS | Encounter Summary ---
Author Organization [facility] Address [address] [facility] [place] [address] Care Team Providers Care Roller Checker Name Role Phone Isidro Heredia MD Unavailable [phone] Tomas Hyman MD Primary Care Provider [phone] Reason for Visit * Reason Onset Date Comments MEDICATION REFILL 04/14/2019 MEDICATION REFILL 11/12/2019 Encounter Details Date Type Department Care Team (Late st Contact Info) Description 04/14/2019 Refill [facility] Medical [facility] - Rheumatology [address] [place] [address] Isidro Heredia MD [address] [place] [address] [phone] MEDICATION REFILL; MEDICATION REFILL Social History Tobacco [...] * Telephone Encounter - Ella Peters - 04/15/2019 8:33 AM CST [place]:01/08/19 IN WORKER documented in this encounter Plan of Treatment Upcoming Encounters Date Type Department Care Team (Late st Contact Info) Description 06/03/2024 1:00 PM FEED IN WORKER Appointment [facility] - Rheumatology [address] [place] [phone] 06/03/2024 2:00 PM FEED IN WORKER Office Visit [facility] - Rheumatology [address] [place] [address] [phone] Gloria Smith MD [address] [place] [phone] documented as of this encounter Visit Diagnoses Not on filedocumented in this encounter Care Teams Roller Checker Relationship Specialty Start Date End Date Tomas Hyman MD [address] [facility] [address] [place] [address] PCP - General Family Medicine 09/05/18 Isidro Heredia MD Rheumatology 02/09/11 documented as of this encounter
--- OUTSIDE RECORDS SUMMARY | 2024-05-03 04:07 | XMS_ITS | Encounter Summary ---
Author Organization [facility] Address [address] [place] [address] Care Team Providers Care Hot Bread Baker Name Role Phone Isidro Heredia MD Unavailable [phone] Tomas Hyman MD Primary Care Provider [phone] Reason for Visit * Treatment (Routine) - Closed Specialty Diagnoses / Procedures Referred By Lawrence shah Referred To Contact Infusion Therapy Nurse Diagnoses Rheumatoid arthritis without rheumatoid factor, multiple sites (HCC) Procedures [place] INFLIXIMAB INJECTION Isidro Heredia MD [address] [place] [address] [phone] Referral ID Status Reason Start Date Expiration Date Visits Re quested Visits Authorized [id number] Closed 05/13/2018 04/29/2019 1 12 Encounter Details Date Type Department Care Team (Late st Contact Info) Description 10/24/2018 10:00 AM CDT - 10/24/2018 11:59 PM CDT Hospital Encounter [facility] Medical [facility] - Rheumatology [address] [place] [address] Isidro Heredia MD [address] [place] [address] Discharge Disposition: Home or Self Care Social [...] Sign Reading Time Taken Comments Blood Pressure 150/82 10/24/2018 10:08 AM CDT Pulse 72 10/24/2018 10:08 AM CDT Temperature 36.7 ??C (98 ??F) 10/24/2018 10:08 AM CDT Respiratory Rate 18 10/24/2018 10:08 AM CDT Oxygen Saturation - - Inhaled Oxygen Concentration - - Weight 114.3 kg (252 lb) 10/24/2018 10:08 AM CDT Height - - Body Mass Index 36.16 09/05/2018 10:54 AM CDT documented in this encounter Discharge Instructions * Discharge Instructions* Jody Christy RN - 10/24/2018 10:28 AM CDT [place] Rheumatology Post Infusion instructions You have [...] Sunday through 01-02 call the office at [phone] After hours or on the weekend call the exchange at [phone] If you have had lab work done [...] [facility] as your provider. Jody Christy, RN documented in this encounter Medications at Time of Discharge Medication Sig Dispensed Refills Start Date End Date atorvastatin (LIPITOR) 40 MG tablet Take 1 (one) tablet by mouth at bedtime leypqsvnznt-ztsl-yfi ysorb, PF, 0.5-1-0.5 % SOLN Instill 1 [...] CARE PHYSICIAN) 180 tablet 2 11/21/2017 11/10/2019 gabapentin (NEURONTIN) 300 MG capsule Take 1 capsule by mouth 2 times daily 180 capsule 3 05/16/2018 01/08/2019 InFLIXimab (REMICADE IV) 600 mg by Intravenous route as directed Every 4 weeks 11/16/2020 methotrexate 2.5 MG tablet TAKE 6 TABLETS EVERY 7 DAYS 72 tablet 2 07/25/2017 12/12/2018 naproxen (NAPROSYN) 500 MG tablet 1 tablet 2 times daily 180 tablet 2 11/21/2017 12/12/2018 oxyCODONE-acetaminop hen (PERCOCET) 5-325 MG tablet Take 1 tablet by mouth every 6 hours as needed for Pain Dx: 714.0 RA 120 tablet 10/24/2018 12/12/2018 pantoprazole EC (PROTONIX) 40 MG tablet Take 1 tablet by mouth once daily 90 tablet 3 11/21/2017 01/08/2019 predniSONE (DELTASONE) 10 MG tablet TAKE 1 TABLET TWICE A DAY 180 tablet 1 06/18/2017 12/12/2018 documented as of this encounter Progress Notes * Jody Christy RN - 10/24/2018 10:21 AM CDT JOSE Deng [id number] 10/24/2018 Diagnosis: Rheumatoid arthritis without rheumatoid factor, multiple sites [M06.09]. Pt denies symptoms of infection or antibiotic use, no open wounds, or recent surgery, or plans for surgery in the next couple of weeks. Pt is aware that we use the 0-10 pain scale to assess discomfort. 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 javascript front end developer pt signs consent for treatment for this infusion. BP 150/82 Pulse 72 Temp 98 ??F Resp 18 Wt 114.3 kg (252 lb) BMI 36.16 kg/m2 @ MEDICATIONS FOR CURRENT ENCOUNTER: ?? inFLIXimab (REMICADE) 300 mg in 0.9% NaCl 250 mL infusion, Intravenous, Continuous ?? Number of 24 gauge 3/4 inch placed in Left antecubital ?? 1 attempt(s). Patient monitored throughout procedure. Tolerated well? Yes Next treatment? 7 weeks Jody Christy RN documented in this encounter Plan of Treatment Upcoming Encounters Date Type Department Care Team (Late st Contact Info) Description 06/03/2024 1:00 PM TAG MAKER Appointment [facility] - Rheumatology [address] [place] [address] [phone] 06/03/2024 2:00 PM TAG MAKER Office Visit [facility] - Rheumatology [address] [place] [address] Gloria Smith MD [address] [place] [phone] documented as of this encounter Visit Diagnoses Diagnosis Rheumatoid arthritis of multiple sites with negative rheumatoid factor (HCC) documented in this encounter Administered Medications Inactive Administered Medications - up to 3 most recent administrations Medication Order MAR Action Action Date Dose Rate Site inFLIXimab (REMICADE) 300 mg in 0.9% NaCl 250 mL infusion 300 mg, at 10-250 mL/hr, Intravenous, CONTINUOUS, Starting on Gabriela 10/24/18 at 1030, Until Sun10/25/18 at 0119, Infuse over a minimum of 2 hours. Start infusion rate at 10 ml/hr and slowly increase infusion rate by doubling rate every 15 minutes. After 1 hour, increase rate to 150 ml/hr for 30 minutes, then increase rate to 250 ml/hr until infusion complete, unless physician orders a different rate. Refrigerate. Use with in-line filter. $ New Bag/Syringe 10/24/2018 10:25 AM CDT 300 mg 135 mL/hr documented in this encounter Care Teams Hot Bread Baker Relationship Specialty Start Date End Date Tomas Hyman MD [address] [facility] [address] [place] [address] PCP - General Family Medicine 09/05/18 Isidro Heredia MD Rheumatology 02/09/11 documented as of this encounter
--- OUTSIDE RECORDS SUMMARY | 2024-05-03 04:07 | XMS_ITS | Encounter Summary ---
Author Organization [facility] Address [address] [facility] [place] [address] Care Team Providers Care Pantograph Setter Name Role Phone Isidro Heredia MD Unavailable [phone] Tomas Hyman MD Primary Care Provider [phone] Encounter Details Date Type Department Care Team (Latest Contact Info) Description 2018 2:03 PM CDT - 2018 11:59 PM CDT Hospital Encounter [facility] [address] [place] [address] [place] [address] [place] [address] Discharge Disposition: Home or Self Care Social [...] Sign Reading Time Taken Comments Blood Pressure 135/90 2018 2:43 PM CDT Pulse 80 2018 2:43 PM CDT Temperature - - Respiratory Rate 16 2018 2:43 PM CDT Oxygen Saturation 98% 2018 2:43 PM CDT Inhaled Oxygen Concentration - - Weight - - Height - - Body Mass Index - - documented in this encounter Medications at Time of Discharge Medication Sig Dispensed Refills Start Date End Date atorvastatin (LIPITOR) 40 MG tablet Take 1 (one) tablet by mouth at bedtime fppdfmvvlsc-rpnv-qbu ysorb, PF, 0.5-1-0.5 % SOLN Instill 1 [...] for Pain Dx: 714.0 RA 120 tablet 09/05/2018 10/24/2018 pantoprazole EC (PROTONIX) 40 MG tablet Take 1 tablet by mouth once daily 90 tablet 3 11/21/2017 01/08/2019 predniSONE (DELTASONE) 10 MG tablet TAKE 1 TABLET TWICE A DAY 180 tablet 1 06/18/2017 12/12/2018 documented as of this encounter Procedure Notes * Alejandro Mirza MD - 2018 2:58 PM CDT Bilateral L5 & S1 Transforaminal Epidural Injection Patient Name: Chalino Deng Provider: Alejandro Mirza MD Date of : 1960 Date: 2018 PCP: Tomas Hyman MD Allergies: Allergies as of 2018 - Carl as Reviewed 2018 Allergen Reaction Noted ??? Plaquenil [hydroxychloroquine sulfate] 05/15/2011 ??? Tuberculin ppd 07/27/2008 Medical History: Past Medical History: Diagnosis Date ??? RA (rheumatoid arthritis) Current Medications: Current Outpatient Prescriptions Medication ??? alendronate (FOSAMAX) 70 MG tablet ??? aspirin EC (ECOTRIN) 81 MG tablet ??? atorvastatin (LIPITOR) 40 MG tablet ??? buPROPion (WELLBUTRIN) 100 MG tablet ??? iqnxjmkocxo-anvu-uqfvqmkm, PF, (REFRESH OPTIVE ADVANCED PF) 0.5-1-0.5 % SOLN ??? carvedilol (COREG) 12.5 MG tablet ??? ferrous sulfate 325 (65 FE) MG tablet ??? gabapentin (NEURONTIN) 300 MG capsule ??? Jlipxzhjpho-Ceoewkgvd-Xhu C-Mn (GLUCOSAMINE CHONDR 1500 COMPLX PO) ??? hydroCHLOROthiazide (HYDRODIURIL) 25 MG tablet ??? icosapent ethyl (VASCEPA) 1 G capsule ??? InFLIXimab (REMICADE IV) ??? Magnesium Citrate 100 MG TABS ??? methotrexate 2.5 MG tablet ??? Multiple Vitamin (MULTI-VITAMIN PO) ??? Multiple Vitamins-Minerals (OCUVITE ADULT 50+ PO) ??? naproxen (NAPROSYN) 500 MG tablet ??? oxyCODONE-acetaminophen (PERCOCET) 5-325 MG tablet ??? pantoprazole EC (PROTONIX) 40 MG tablet ??? Potassium 99 MG tablet ??? predniSONE (DELTASONE) 10 MG tablet ??? ZYRTEC 10 MG TABS Current Facility-Administered Medications Medication ??? iopamidol (ISOVUE M 200) 41 % contrast HPI: Pain management: Pt. prestents today for a transforaminal edpidural injection. Procedures: TFE Bilateral L5 & S1 Diagnosis/Indication::Lumbar Transforaminal epidural injection M54.16, M48.06, M51.17 Indication for Procedure: Intractable radicular pain of the lower extremity. Other conservative therapies and/or treatments provided inadequate pain relief. Procedure: Lumbar/Sacral Transforaminal Injection. Informed Consent: After the patient Chalino Deng was informed of the risks and benefits of the procedure and all questions were answered, consent was signed. Risks benefits, and alternative were discussed including risk of infection, bleeding , nerve damage, worsening pain, no pain relief whatsoever,transient increase in blood pressure, blood sugar, fluid retention,possibility of headache, possibility of shingles, or any other viral outbreak secondary to immunosuppressant effects of steroid use. Prep: Pt identified, proper procedure identified, site identified, and marked by Dr. Mirza. Responsible wedding transportation driver is not needed due to the patient not having sedation. The patient was placed in a prone position and was prepped with Chloraprep. . Fluoroscopy: Procedure done under fluoroscopy; verifying needle placement with Fluoroscopy. The transverse process/sacral foramen was identified and lidocaine 1% was injected. Local Injection: Lidocaine 1.0% into the skin and subcutaneous tissues [...] !%; 6ml Dexamethasone: 10mg, 2.5mg per level and Isovue-M 200, .5cc per level Estimated Blood Loss: None Isovue-M 200 Waste : 8cc The patient tolerated the procedure well and there were no complications. The patient was taken to the recovery area. The patient remained in stable condition with no apparent complications. Vital signs stable. Injection site clean, dry, and intact. Post procedure instructions were given to the patient and a follow up appointment was confirmed. The patient was discharged with information on how to reach the clinic at anytime for questions or concerns. Pt ambulatory, denies complaints, DC to home. Pt survey given. Procedure codes: Epi Transfor Lumbar/Sac (S), Epi Add Levels Lumb/Sac, Fluoro. Alejandro Mirza MD documented in this encounter Plan of Treatment Upcoming Encounters Date Type Department Care Team (Late st Contact Info) Description 06/03/2024 1:00 PM BASEBALL COACH Appointment [facility] - Rheumatology [address] [place] [address] [phone] 06/03/2024 2:00 PM BASEBALL COACH Office Visit [facility] - Rheumatology [address] [place] [address] Gloria Smith MD [address] [place] [phone] Pending Results Name Type Priority Associated Diagnoses Date /Time PAIN MANAGEMENT PROCEDURE TIME Imaging Routine Radiculopathy of lumbar region Low back pain, unspecified back pain laterality, unspecified chronicity, with sciatica presence unspecified Other chronic pain 2018 2:43 PM CDT documented as of this encounter Visit Diagnoses Diagnosis Radiculopathy of lumbar region Thoracic or lumbosacral neuritis or radiculitis, unspecified Low back pain, unspecified back pain laterality, unspecified chronicity, with sciatica presence unspecified Other chronic pain documented in this encounter Administered Medications Inactive Administered Medications - up to 3 most recent administrations Medication Order MAR Action Action Date Dose Rate Site dexamethasone (DECADRON) injection 10 mg 10 mg, Intravenous, ONCE, 1 dose, On Sun10/21/18 at 1430 $ Admin. by Other Provider 2018 2:41 PM CDT 10 mg iopamidol (ISOVUE M 200) 41 % contrast Intraspinal, CONTRAST ONCE, Starting on Sun10/21/18 at 1404, Until 10/22/18 at 0118, Used for myelograms $ Given - Contrast 2018 2:42 PM CDT 1 mL lidocaine (XYLOCAINE MPF) 1 % injection Infiltration, ONCE, 1 dose, On 10/21/18 at 1430 $ Admin. by Other Provider 2018 2:41 PM CDT 50 mg documented in this encounter Care Teams Pantograph Setter Relationship Specialty Start Date End Date Tomas Hyman MD [address] [place] [address] PCP - General Family Medicine 09/05/18 Isidro Heredia MD Rheumatology 02/09/11 documented as of this encounter
--- OUTSIDE RECORDS SUMMARY | 2024-05-03 04:07 | XMS_ITS | Encounter Summary ---
Author Organization [facility] Address [address] [facility] [place] [address] Care Team Providers Care Rattan Worker Name Role Phone Isidro Heredia MD Unavailable [phone] Reason for Visit * Treatment (Routine) - Closed Specialty Diagnoses / Procedures Referred By Contac t Referred To Contact Infusion Therapy Nurse Diagnoses Rheumatoid arthritis without rheumatoid factor, multiple sites (HCC) Procedures [place] INFLIXIMAB INJECTION Isidro Heredia MD [address] [place] [address] [address] Referral ID Status Reason Start Date Expiration Date Visits Re quested Visits Authorized [id number] Closed 05/13/2018 04/29/2019 1 12 Encounter Details Date Type Department Care Team (Late st Contact Info) Description 07/11/2018 9:17 AM CDT - 07/11/2018 11:59 PM CDT Hospital Encounter [facility] Medical [facility] - Rheumatology [address] [place] [address] Isidro Heredia MD [address] [place] [address] Discharge Disposition: Home or Self [...] Reading Time Taken Comments Blood Pressure 148/80 07/11/2018 9:55 AM CDT Pulse 74 07/11/2018 9:55 AM CDT Temperature 37.1 ??C (98.7 ??F) 07/11/2018 9:55 AM CD T Respiratory Rate 18 07/11/2018 9:55 AM CDT Oxygen Saturation - - Inhaled Oxygen Concentration - - Weight 112.5 kg (248 lb) 07/11/2018 9:55 AM CDT Height - - Body Mass Index 35.58 01/11/2016 3:12 PM CDT documented in this encounter Discharge Instructions * Discharge Instructions* Jody Sahu RN - 07/11/2018 10:01 AM CDT [place] Rheumatology Post Infusion instructions You [...] through Sunday 9-5 call the office at [phone] After hours or on the weekend call the exchange at [phone] If you have had lab work done [...] and are glad you have chosen [facility] as your provider. Jody Sahu RN documented in this encounter Medications at Time of Discharge Medication Sig Dispensed Refills Start Date End Date atorvastatin (LIPITOR) 40 MG tablet Take 1 (one) tablet by mouth at bedtime ferrous sulfate 325 (65 FE) MG tablet [...] 100 mg by mouth once daily 11/10/2019 carboxymethylcellulo se sodium PF 0.5 % ophthalmic solution 0.5 % by Ophthalmic route 3 times daily 07/11/2018 09/05/2018 carvedilol (COREG) 12.5 MG tablet TAKE 1 TABLET TWICE A DAY WITH MORNING AND EVENING MEALS (NEED TO START GETTING FROM PRIMARY CARE PHYSICIAN) 180 tablet 2 11/21/2017 11/10/2019 gabapentin (NEURONTIN) 300 MG capsule Take 1 capsule by mouth 2 times daily 180 capsule 3 05/16/2018 01/08/2019 InFLIXimab (REMICADE IV) 600 mg by Intravenous route as directed Every 4 weeks 11/16/2020 KRILL OIL PO Take 500 mg by mouth once daily 09/05/2018 methotrexate 2.5 MG tablet TAKE 6 TABLETS EVERY 7 DAYS 72 tablet 2 07/25/2017 12/12/2018 naproxen (NAPROSYN) 500 MG tablet 1 tablet 2 times daily 180 tablet 2 11/21/2017 12/12/2018 oxyCODONE-acetaminop hen (PERCOCET) 5-325 MG tablet Take 1 tablet by mouth every 6 hours as needed for Pain Dx: 714.0 RA 120 tablet 07/11/2018 09/05/2018 pantoprazole EC (PROTONIX) 40 MG tablet Take 1 tablet by mouth once daily 90 tablet 3 11/21/2017 01/08/2019 prednisoLONE acetate (PRED FORTE) 1 % ophthalmic suspension 1 drop by Ophthalmic route 2 times daily 01/02/2018 09/05/2018 predniSONE (DELTASONE) 10 MG tablet TAKE 1 TABLET TWICE A DAY 180 tablet 1 06/18/2017 12/12/2018 REFRESH PLUS 0.5 % ophthalmic solution Instill 1 Drop into both eyes every 3 hours as needed 11/21/2016 09/05/2018 documented as of this encounter Progress Notes * Jody Sahu RN - 07/11/2018 10:03 AM CDT JOSE Chalino Deng [id number] 07/11/2018 Diagnosis: Rheumatoid arthritis without rheumatoid factor, multiple sites [M06.09]. Pt denies symptoms of infection or antibiotic use, no open wounds, or recent surgery, or plans for surgery in the next couple of weeks. Pt is aware that we use the 0-10 pain scale to assess discomfort. 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 front end alignment specialist pt signs consent for treatment for this infusion. BP 148/80 Pulse 74 Temp 98.7 ??F Resp 18 Wt 112.5 kg (248 lb) BMI 35.58 kg/m2 @ MEDICATIONS FOR CURRENT ENCOUNTER: ?? CONTINUOUS MEDICATIONS: ?? inFLIXimab (REMICADE) 300 mg in 0.9% NaCl 250 mL infusion, Intravenous, Continuous ?? Number of 24 gauge 3/4 inch placed in Left antecubital ?? 1 attempt(s). Patient monitored throughout procedure. Tolerated well? Yes Next treatment? 8 weeks Jody Sahu RN documented in this encounter Plan of Treatment Upcoming Encounters Date Type Department Care Team (Late st Contact Info) Description 06/03/2024 1:00 PM CHUTE TAPPER Appointment [facility] - Rheumatology [address] [place] [address] 06/03/2024 2:00 PM CHUTE TAPPER Office Visit [facility] - Rheumatology [address] [place] [address] Gloria Smith MD [address] [place] [phone] documented as of this encounter Visit Diagnoses Diagnosis Rheumatoid arthritis of multiple sites with negative rheumatoid factor (HCC) documented in this encounter Administered Medications Inactive Administered Medications - up to 3 most recent administrations Medication Order MAR Action Action Date Dose Rate Site inFLIXimab (REMICADE) 300 mg in 0.9% NaCl 250 mL infusion 300 mg, at 10-250 mL/hr, Intravenous, CONTINUOUS, Starting on Sun07/11/18 at 1000, Until Sun07/12/18 at 0119, Refrigerate. Use with in-line filter. Infuse over [...] Use with in-line filter. $ New Bag/Syringe 07/11/2018 9:52 AM CDT 300 mg 40 mL/hr documented in this encounter Care Teams Rattan Worker Relationship Specialty Start Date End Date Isidro Heredia MD Rheumatology 02/09/11 documented as of this encounter
--- OUTSIDE RECORDS SUMMARY | 2024-05-03 04:07 | XMS_ITS | Encounter Summary ---
Author Organization [facility] Address [address] [facility] [place] [address] Care Team Providers Care Satellite Communications Engineer Name Role Phone Isidro Heredia MD Unavailable Tomas Hyman MD Primary Care Provider [phone] Reason for Visit * Treatment (Routine) - Closed Specialty Diagnoses / Procedures Referred By Lawrence shah Referred To Contact Infusion Therapy Nurse Diagnoses Rheumatoid arthritis without rheumatoid factor, multiple sites (HCC) Procedures [place] INFLIXIMAB INJECTION Isidro Heredia MD [address] [place] [address] [address] Referral ID Status Reason Start Date Expiration Date Visits Re quested Visits Authorized [id number] Closed 05/13/2018 04/29/2019 1 12 Encounter Details Date Type Department Care Team (Late st Contact Info) Description 09/05/2018 10:00 AM CDT - 09/05/2018 11:59 PM CDT Hospital Encounter [facility] Medical [facility] - Rheumatology [address] [place] [address] Isidro Heredia MD [address] [place] [address] Discharge Disposition: Home or Self [...] Sign Reading Time Taken Comments Blood Pressure 142/75 09/05/2018 10:10 AM CDT Pulse 77 09/05/2018 10:10 AM CDT Temperature 36.8 ??C (98.2 ??F) 09/05/2018 10:10 AM C DT Respiratory Rate 18 09/05/2018 10:10 AM CDT Oxygen Saturation - - Inhaled Oxygen Concentration - - Weight 114.3 kg (252 lb) 09/05/2018 10:10 AM CDT Height - - Body Mass Index 36.16 01/11/2016 3:12 PM CDT documented in this encounter Discharge Instructions * Discharge Instructions* Jody Christy RN - 09/05/2018 10:29 AM CDT [place] Rheumatology Post Infusion instructions You have received [...] rash or breathing problems please call your [facility] Rheumatology physician for further instructions. While most problems that occur around the time of an infusion are very mild and not dangerous, they should not be ignored. Sunday through 01-02 call the office at [phone] After hours or on the weekend call the exchange at [phone] If you have had lab work done [...] you and are glad you have chosen [facility] as your provider. Jody Christy RN documented in this encounter Medications at Time of Discharge Medication Sig Dispensed Refills Start Date End Date atorvastatin (LIPITOR) 40 MG tablet Take 1 (one) tablet by mouth at bedtime jlsgimxluyd-nuzx-mud ysorb, PF, 0.5-1-0.5 % SOLN Instill 1 [...] Progress Notes * Jody Christy RN - 09/05/2018 10:27 AM CDT JOSE Deng [id number] 09/05/2018 Diagnosis: Rheumatoid arthritis without rheumatoid factor, multiple sites [M06.09]. Pt denies symptoms of infection or antibiotic use, no open wounds, or recent surgery, or plans for surgery in the next couple of weeks. Pt is aware that we use the 0-10 pain scale to assess discomfort. 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 supervisor front pt signs consent for treatment for this infusion. BP 142/75 Pulse 77 Temp 98.2 ??F Resp 18 Wt 114.3 kg (252 lb) BMI 36.16 kg/m2 @ MEDICATIONS FOR CURRENT ENCOUNTER: ?? inFLIXimab (REMICADE) 300 mg in 0.9% NaCl 250 mL infusion, Intravenous, Continuous ?? Number of 24 gauge 3/4 inch placed in Left antecubital ?? 1 attempt(s). Patient monitored throughout procedure. Tolerated well? Yes Next treatment? 8 weeks Jody Christy RN documented in this encounter Plan of Treatment Upcoming Encounters Date Type Department Care Team (Late st Contact Info) Description 06/03/2024 1:00 PM DAM ATTENDANT Appointment [facility] - Rheumatology [address] [place] [address] [phone] 06/03/2024 2:00 PM DAM ATTENDANT Office Visit [facility] - Rheumatology [address] [place] [address] [phone] Gloria Smith MD [address] [place] [phone] documented as of this encounter Visit [...] 10-250 mL/hr, Intravenous, CONTINUOUS, Starting on Gabriela 09/05/18 at 1030, Until Sun09/06/18 at 0119, Refrigerate. Use with in-line filter., Infuse over a minimum of 2 hours. Start infusion rate at 10 ml/hr and slowly increase infusion rate by doubling rate every 15 minutes. After 1 hour, increase rate to 150 ml/hr for 30 minutes, then increase rate to 250 ml/hr until infusion complete, unless physician orders a different rate. Refrigerate. Use with in-line filter. $ New Bag/Syringe 09/05/2018 10:39 AM CDT 300 mg 135 mL/hr documented in this encounter Care Teams Satellite Communications Engineer Relationship Specialty Start Date End Date Tomas Hyman MD [address] [facility] [address] [place] [address] PCP - General Family Medicine 09/05/18 Isidro Heredia MD Rheumatology 02/09/11 documented as of this encounter
--- OUTSIDE RECORDS SUMMARY | 2024-05-03 04:07 | XMS_ITS | Encounter Summary ---
Author Organization [facility] Address [address] [facility] [place] [address] Care Team Providers Care Financial Associate Name Role Phone Isidro Heredia MD Unavailable Tomas Hyman MD Primary Care Provider [phone] Encounter Details Date Type Department Care Team (Latest Contact Info) Description 10/07/2018 11:45 AM CDT - 10/07/2018 1:20 PM CDT Hospital Encounter [facility] Pain Care [address] [place] [address] [place] [address] [place] [address] Discharge Disposition: Home or Self Care Social [...] Sign Reading Time Taken Comments Blood Pressure 123/78 10/07/2018 12:55 PM CDT Pulse 71 10/07/2018 12:55 PM CDT Temperature - - Respiratory Rate 16 10/07/2018 12:55 PM CDT Oxygen Saturation 96% 10/07/2018 12:55 PM CDT Inhaled Oxygen Concentration - - Weight - - Height - - Body Mass Index - - documented in this encounter Discharge Instructions * Patient Instructions* Clare Jiang RN - 10/07/2018 12:21 PM CDT [facility] Pain Discharge Instructions Selective Epidural [...] headache, or any other problems, please call [phone] or after hours callDr. Mirza at [phone] and tell them your physician's name. The exchange will alert the physician assessment consultant. If sedation is given: No sedation given. For Your Next Visit: No additional instructions. Other Instructions: May remove band-aid in 12 Hours. Return 1 week or per insurance. documented in this encounter Medications at Time of Discharge Medication Sig Dispensed Refills Start Date End Date atorvastatin (LIPITOR) 40 MG tablet Take 1 (one) tablet by mouth at bedtime buvcovaimgy-anay-jeu ysorb, PF, 0.5-1-0.5 % SOLN Instill 1 [...] as of this encounter Progress Notes * Alejandro Mirza MD - 10/07/2018 12:38 PM CDT History and physical completed on 09/30/2018. Was reviewed today and no changes noted. documented in this encounter Plan of Treatment Upcoming Encounters Date Type Department Care Team (Late st Contact Info) Description 06/03/2024 1:00 PM CHAIN LINK FENCE INSTALLER Appointment [facility] - Rheumatology [address] [place] [address] 06/03/2024 2:00 PM CHAIN LINK FENCE INSTALLER Office Visit [facility] - Rheumatology [address] [place] [address] Gloria Smith MD [address] [place] [phone] documented as of this encounter Visit Diagnoses Not on filedocumented in this encounter Administered Medications Inactive Administered Medications - up to 3 most recent administrations Medication Order MAR Action Action Date Dose Rate Site dexamethasone (DECADRON) injection 10 mg 10 mg, Intravenous, ONCE, 1 dose, On Sun10/07/18 at 1230 $ Admin. by Other Provider 10/07/2018 12:45 PM CDT 10 mg iopamidol (ISOVUE M 200) 41 % contrast Intraspinal, CONTRAST ONCE, Starting on Sun10/07/18 at 1408, Until Sun10/08/18 at 0118, Used for myelograms $ Given - Contrast 10/07/2018 12:45 PM CDT 1 mL lidocaine (XYLOCAINE MPF) 1 % injection Infiltration, ONCE, 1 dose, On Sun10/07/18 at 1230 $ Admin. by Other Provider 10/07/2018 12:45 PM CDT 5 mL documented in this encounter Care Teams Financial Associate Relationship Specialty Start Date End Date Tomas Hyman MD [address] [facility] [address] [place] [address] PCP - General Family Medicine 09/05/18 Isidro Heredia MD Rheumatology 02/09/11 documented as of this encounter
--- OUTSIDE RECORDS SUMMARY | 2024-05-03 04:07 | XMS_ITS | Encounter Summary ---
Author Organization [facility] Address [address] [place] [address] Care Team Providers Care Pearl Hand Name Role Phone Isidro Heredia MD Unavailable [phone] Tomas Hyman MD Primary Care Provider [phone] Reason for Visit * Reason Onset Date Comments Appointment 01/02/2019 Encounter Details Date Type Department Care Team (Late st Contact Info) Description 01/02/2019 Telephone [facility] Medical [facility] - Rheumatology [address] [place] [address] Isidro Heredia MD [address] [place] [address] Appointment Social History Tobacco Use Types Packs/Day Years [...] * Telephone Encounter - Carey Loza - 01/02/2019 1:38 PM CDT Called patient left a message explaining that all the orders for his infusions needs to be under DrSong since Dr Heredia is no longer here. With the lateness of the Dr Appointment there are no infusion openings. documented in this encounter Plan of Treatment Upcoming Encounters Date Type Department Care Team (Late st Contact Info) Description 06/03/2024 1:00 PM SALES ARCHITECT Appointment [facility] - Rheumatology [address] [place] [address] [phone] 06/03/2024 2:00 PM SALES ARCHITECT Office Visit [facility] - Rheumatology [address] [place] [address] Gloria Smith MD [address] [place] [phone] documented as of this encounter Visit Diagnoses Not on filedocumented in this encounter Care Teams Pearl Hand Relationship Specialty Start Date End Date Tomas Hyman MD [address] [facility] [address] [place] [address] PCP - General Family Medicine 09/05/18 Isidro Heredia MD Rheumatology 02/09/11 documented as of this encounter
--- OUTSIDE RECORDS SUMMARY | 2024-05-03 04:07 | XMS_ITS | Encounter Summary ---
Author Organization [facility] Address [address] [facility] [place] [address] Care Team Providers Care Email Campaign Specialist Name Role Phone Isidro Heredia MD Unavailable [phone] Tomas Hyman MD Primary Care Provider Reason for Visit * Reason Onset Date Comments MEDICATION REFILL 04/14/2019 Encounter Details Date Type Department Care Team (Late st Contact Info) Description 04/14/2019 Refill [facility] - Rheumatology [address] [place] [address] Gloria Smith MD [address] [place] [phone] MEDICATION REFILL Social History Tobacco Use [...] (Late Contact Info) Description 06/03/2024 1:00 PM METER REPAIRER HELPER Appointment [facility] - Rheumatology [address] [place] [address] 06/03/2024 2:00 PM METER REPAIRER HELPER Office Visit [facility] - Rheumatology [address] [place] [address] Gloira Smith MD [address] [place] [address] documented as of this encounter Visit Diagnoses Not on filedocumented in this encounter Care Teams Email Campaign Specialist Relationship Specialty Start Date End Date Tomas Hyman MD [address] [place] [address] PCP - General Family Medicine 09/05/18 Isidro Heredia MD Rheumatology 02/09/11 documented as of this encounter
--- OUTSIDE RECORDS SUMMARY | 2024-05-03 04:07 | XMS_ITS | Encounter Summary ---
Author Organization [facility] Address [address] [facility] [place] [address] Care Team Providers Care Tin Dipper Name Role Phone Isidro Hereida MD Unavailable Encounter Details Date Type Department Care Team (Late st Contact Info) Description 05/24/2018 Orders Only [facility] - Rheumatology [address] [place] [address] Isidro Heredia MD [address] [place] [address] Encounter for long-term (current) use of medications Social History Tobacco Use Types Packs/Day Years [...] st Contact Info) Description 06/03/2024 1:00 PM MOBILE PAINT SPECIALIST Appointment [facility] - Rheumatology [address] [place] [address] 06/03/2024 2:00 PM MOBILE PAINT SPECIALIST Office Visit [facility] - Rheumatology [address] [place] [address] Gloria Smith MD [address] [place] [phone] documented as of this encounter Visit Diagnoses Diagnosis Encounter for long-term (current) use of medications Encounter for long-term (current) use of other medications documented in this encounter Care Teams Tin Dipper Relationship Specialty Start Date End Date Isidro Heredia MD Rheumatology 02/09/11 documented as of this encounter
--- OUTSIDE RECORDS SUMMARY | 2024-05-03 04:07 | XMS_ITS | Encounter Summary ---
Author Organization [facility] Address [address] [facility] [place] [address] Care Team Providers Care Atmospheric Physics Professor Name Role Phone Isidro Heredia MD Unavailable [phone] Tomas Hyman MD Primary Care Provider [phone] Encounter Details Date Type Department Care Team (Latest Contact Info) Description 10/28/2018 11:55 AM CDT - 10/28/2018 11:59 PM CDT Hospital Encounter [facility] Pain Care [address] [place] [address] [place] [address] [place] [address] Discharge Disposition: Home or Self Care Social [...] Sign Reading Time Taken Comments Blood Pressure 134/79 10/28/2018 1:02 PM CDT Pulse 86 10/28/2018 1:02 PM CDT Temperature - - Respiratory Rate 16 10/28/2018 1:02 PM CDT Oxygen Saturation 95% 10/28/2018 1:02 PM CDT Inhaled Oxygen Concentration - - Weight - - Height - - Body Mass Index - - documented in this encounter Discharge Instructions * Patient Instructions* Nena Pond RN - 10/28/2018 12:30 PM CDT [facility] Procedure Center Pain Discharge Instructions Selective Epidural [...] headache, or any other problems, please call [phone] or after hours callDr. Mirza at [phone] and tell them your physician's name. The exchange will alert the physician manager long term care. If sedation is given: No sedation given. For Your Next Visit: No additional instructions. Other Instructions: May remove band-aid in 12 Hours. Return in 2 weeks for follow up. documented in this encounter Medications at Time of Discharge Medication Sig Dispensed Refills Start Date End Date atorvastatin (LIPITOR) 40 MG tablet Take 1 (one) tablet by mouth at bedtime bvxucpblhjd-qpiz-tgi ysorb, PF, 0.5-1-0.5 % SOLN Instill 1 [...] Procedure Notes * Alejandro Mirza MD - 10/28/2018 1:18 PM CDTAssociated Order(s): PAIN MANAGEMENT PROCEDURE TIME Bilateral L5 & S1 Transforaminal Epidural Injection Patient Name: Chalino Deng Provider: Alejandro Mirza MD Date of : 1960 Date: 10/28/2018 PCP: Tomas Hyman MD Allergies: Allergies as of 10/28/2018 - Complete 10/28/2018 Allergen Reaction Noted ??? Plaquenil [hydroxychloroquine sulfate] 05/15/2011 ??? Tuberculin ppd 07/27/2008 Medical History: Past Medical History: Diagnosis Date ??? RA (rheumatoid arthritis) Current Medications: Current Outpatient Prescriptions Medication ??? alendronate (FOSAMAX) 70 MG tablet ??? aspirin EC (ECOTRIN) 81 MG tablet ??? atorvastatin (LIPITOR) 40 MG tablet ??? buPROPion (WELLBUTRIN) 100 MG tablet ??? upaqzzmjxwh-pqko-edgxugir, PF, (REFRESH OPTIVE ADVANCED PF) 0.5-1-0.5 % SOLN ??? carvedilol (COREG) 12.5 MG tablet ??? ferrous sulfate 325 (65 FE) MG tablet ??? gabapentin (NEURONTIN) 300 MG capsule ??? Mgmogftroyl-Eddcjnjdg-Gqm C-Mn (GLUCOSAMINE CHONDR 1500 COMPLX PO) ??? [...] identified, and marked by Dr. Mirza. Responsible train driver is not needed due to the [...] st Contact Info) Description 06/03/2024 1:00 PM FINANCIAL SERVICES SALES REPRESENTATIVE Appointment [facility] - Rheumatology [address] [place] [address] [phone] 06/03/2024 2:00 PM FINANCIAL SERVICES SALES REPRESENTATIVE Office Visit [facility] - Rheumatology [address] [place] [address] [phone] Gloria Smith MD [address] [place] [phone] documented as of this encounter Procedures Procedure Name Priority Date/Time Associated Diagnosis Comments PAIN MANAGEMENT PROCEDURE TIME Routine 10/28/2018 12:59 PM CDT Radiculopathy of lumbar region Low back pain, unspecified back pain laterality, unspecified chronicity, with sciatica presence unspecified Other chronic pain documented in this encounter Results * PAIN MANAGEMENT PROCEDURE TIME (10/28/2018 12:59 PM CDT) Anatomical Region Laterality Modality X-Ray Angiograph y [...] buPROPion (WELLBUTRIN) 100 MG tablet ? ? fmpkevxdugb-jsdf-rnfrkfrp, PF, (REFRESH OPTIVE ADVANCED PF) 0.5-1-0.5 % SOLN ? ? carvedilol (COREG) 12.5 MG tablet ? ? ferrous sulfate 325 (65 FE) MG tablet ? ? gabapentin (NEURONTIN) 300 MG capsule ? ? Mrqhyqxcgkq-Oebhnoltp-Xcb C-Mn (GLUCOSAMINE CHONDR 1500 COMPLX PO) ? [...] identified, and marked by Dr. Mirza. ??Responsible train driver is not needed due to the [...] Alejandro Mirza MD DIAGNOSTIC IMAGING O RDERABLES documented in this encounter Visit Diagnoses Diagnosis Radiculopathy of [...] 10 mg, Intravenous, ONCE, 1 dose, On Sun10/28/18 at 1300 $ Admin. by Other Provider 10/28/2018 12:48 PM CDT 10 mg iopamidol (ISOVUE M 200) 41 % contrast Intraspinal, CONTRAST ONCE, Starting on Sun10/28/18 at 1231, Until Sun10/29/18 at 0119, Used for myelograms $ Given - Contrast 10/28/2018 12:48 PM CDT 1 mL lidocaine (XYLOCAINE MPF) 1 % injection Infiltration, INTRA-PROCEDURE ONCE, 1 dose, On Sun10/28/18 at 1245 $ Admin. by Other Provider 10/28/2018 12:48 PM CDT 50 mg documented in this encounter Care Teams Atmospheric Physics Professor Relationship Specialty Start Date End Date Tomas Hyman MD [address] [facility] [address] [place] [address] PCP - General Family Medicine 09/05/18 Isidro Heredia MD Rheumatology 02/09/11 documented as of this encounter
--- OUTSIDE RECORDS SUMMARY | 2024-05-03 04:07 | XMS_ITS | Encounter Summary ---
Author Organization [facility] Address [address] [place] [address] Care Team Providers Care Dental Office Coordinator Name Role Phone Isidro Heredia MD Unavailable Tomas Hyman MD Primary Care Provider [phone] Reason for Visit * Treatment (Routine) - Closed Specialty Diagnoses / Procedures Referred By Lawrence t Referred To Contact Infusion Therapy Nurse Diagnoses Rheumatoid arthritis without rheumatoid factor, multiple sites (HCC) Procedures [place] INFLIXIMAB INJECTION Isidro Heredia MD [address] [place] [address] [address] Referral ID Status Reason Start Date Expiration Date Visits Re quested Visits Authorized [id number] Closed 05/13/2018 04/29/2019 1 12 Encounter Details Date Type Department Care Team (Late st Contact Info) Description 03/06/2019 8:54 AM ONLINE MARKETING SPECIALIST - 03/06/2019 11:59 PM ONLINE MARKETING SPECIALIST Hospital Encounter [facility] Medical [facility] - Rheumatology [address] [place] [address] Gloria Smith MD [address] [place] [phone] Discharge Disposition: Home or Self Care [...] Sign Reading Time Taken Comments Blood Pressure 141/82 03/06/2019 9:14 AM ONLINE MARKETING SPECIALIST Pulse 88 03/06/2019 9:14 AM ONLINE MARKETING SPECIALIST Temperature 36.8 ??C (98.2 ??F) 03/06/2019 9:14 AM CS T Respiratory Rate 17 03/06/2019 9:14 AM ONLINE MARKETING SPECIALIST Oxygen Saturation - - Inhaled Oxygen Concentration - - Weight 112 kg (247 lb) 03/06/2019 9:14 AM ONLINE MARKETING SPECIALIST Height - - Body Mass Index 35.44 09/05/2018 10:54 AM CDT documented in this encounter Discharge Instructions * Discharge Instructions* Jody Sahu RN - 03/06/2019 9:18 AM ONLINE MARKETING SPECIALIST [place] Rheumatology Post Infusion instructions You have received [...] Sunday through 01-02 call the office at [phone] After hours or on the weekend call the exchange at [phone] If you have had lab work done [...] you and are glad you have chosen [facility] as your provider. Jody Sahu RN [place] MARKETING SPECIALIST documented in this encounter Medications at Time of Discharge Medication Sig Dispensed Refills Start Date End Date atorvastatin (LIPITOR) 40 MG tablet Take 1 (one) tablet by mouth at bedtime lrpvwuxewmi-bvsy-dll ysorb, PF, 0.5-1-0.5 % SOLN Instill 1 [...] Progress Notes * Jody Sahu RN - 03/06/2019 9:28 AM CST JOSE Allred Deng [id number] 03/06/2019 Diagnosis: Rheumatoid arthritis without rheumatoid factor, multiple sites [M06.09]. Pt denies symptoms of infection or antibiotic use, no open wounds, or recent surgery, or plans for surgery in the next couple of weeks. Pt is aware that we use the 0-10 pain scale to assess discomfort. 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 front desk team member pt signs consent for treatment for this infusion. BP 141/82 Pulse 88 Temp 98.2 ??F Resp 17 Wt 112 kg (247 lb) BMI 35.44 kg/m2 @ MEDICATIONS FOR CURRENT ENCOUNTER: ?? CONTINUOUS MEDICATIONS: ?? inFLIXimab (REMICADE) 400 mg in 0.9% NaCl 250 mL infusion, Intravenous, Continuous ?? Number of 24 gauge 3/4 inch placed in Right antecubital ?? 1 attempt(s). Patient monitored throughout procedure. Tolerated well? Yes Next treatment? 6 weeks Jody Sahu RN NE MARKETING SPECIALIST documented in this encounter Plan of Treatment Upcoming Encounters Date Type Department Care Team (Late st Contact Info) Description 06/03/2024 1:00 PM ONLINE MARKETING SPECIALIST Appointment [facility] - Rheumatology [address] [place] [address] [phone] 06/03/2024 2:00 PM ONLINE MARKETING SPECIALIST Office Visit [facility] - Rheumatology [address] [place] [address] Gloria Smith MD [address] [place] [phone] documented as of this encounter Visit Diagnoses [...] 10-250 mL/hr, Intravenous, CONTINUOUS, Starting on Gabriela 03/06/19 at 0930, Until Sun03/07/19 at 0119, Refrigerate. Use with in-line filter., [...] Use with in-line filter. $ New Bag/Syringe 03/06/2019 9:23 AM ONLINE MARKETING SPECIALIST 400 mg 135 mL/hr documented in this encounter Care Teams Dental Office Coordinator Relationship Specialty Start Date End Date Tomas Hyman MD [address] [facility] [address] [place] [address] PCP - General Family Medicine 09/05/18 Isidro Heredia MD Rheumatology 02/09/11 documented as of this encounter
--- OUTSIDE RECORDS SUMMARY | 2024-05-03 04:07 | XMS_ITS | Encounter Summary ---
Author Organization [facility] Address [address] [facility] [place] [address] Care Team Providers Care Heel Varnisher Name Role Phone Isidro Heredia MD Unavailable [phone] Tomas Hyman MD Primary Care Provider [phone] Encounter Details Date Type Department Care Team (Late Contact Info) Description 05/09/2019 Orders Only [facility] - Rheumatology [address] [place] [address] Gloria Smith [facility] [place] [address] Social History Tobacco Use Types [...] (Late Contact Info) Description 06/03/2024 1:00 PM INSIDE TRUCKER Appointment [facility] - Rheumatology [address] [place] [address] 06/03/2024 2:00 PM INSIDE TRUCKER Office Visit [facility] - Rheumatology [address] [place] [address] Gloria Smith MD [facility] [place] [place] [address] documented as of this encounter Visit Diagnoses Not on filedocumented in this encounter Care Teams Heel Varnisher Relationship Specialty Start Date End Date Tomas Hyman MD [address] [place] [address] PCP - General Family Medicine 09/05/18 Isidro Heredia MD Rheumatology 02/09/11 documented as of this encounter
--- OUTSIDE RECORDS SUMMARY | 2024-05-03 04:07 | XMS_ITS | Encounter Summary ---
Author Organization [facility] Address [address] [place] [address] Care Team Providers Care Systems Tester Name Role Phone Isidro Heredia MD Unavailable [phone] oTmas Hyman MD Primary Care Provider [phone] Encounter Details Date Type Department Care Team (Latest Contact Info) Description 10/07/2018 1:21 PM CDT - 10/07/2018 11:59 PM T Hospital Encounter [facility] [address] [place], [place] [phone] [place] [address] [place] [phone] Discharge Disposition: Home or Self Care Social [...] 1 (one) tablet by mouth at bedtime ycjqjpukozk-dwjj-gae ysorb, PF, 0.5-1-0.5 % SOLN Instill 1 [...] Procedure Notes * Alejandro Mirza MD - 10/07/2018 1:48 PM CDTAssociated Order(s): PAIN MANAGEMENT PROCEDURE TIME Left L 5 & S1 Transforaminal Epidural Injection Patient Name: Chalino Deng Provider: Alejandro Mirza MD Date of : 1960 Date: 10/07/2018 PCP: Tomas Hyman MD Allergies: Allergies as of 10/07/2018 - Complete 10/07/2018 Allergen Reaction Noted ??? Plaquenil [hydroxychloroquine sulfate] 05/15/2011 ??? Tuberculin ppd 07/27/2008 Medical History: Past Medical History: Diagnosis Date ??? RA (rheumatoid arthritis) Current Medications: Current Outpatient Prescriptions Medication ??? alendronate (FOSAMAX) 70 MG tablet ??? aspirin EC (ECOTRIN) 81 MG tablet ??? atorvastatin (LIPITOR) 40 MG tablet ??? buPROPion (WELLBUTRIN) 100 MG tablet ??? vxdkqepzclb-votu-lpbotzfp, PF, (REFRESH OPTIVE ADVANCED PF) 0.5-1-0.5 % SOLN ??? carvedilol (COREG) 12.5 MG tablet ??? ferrous sulfate 325 (65 FE) MG tablet ??? gabapentin (NEURONTIN) 300 MG capsule ??? Ufrnvjpomzu-Whdaxwfer-Bqw C-Mn (GLUCOSAMINE CHONDR 1500 COMPLX PO) ??? [...] MG tablet ??? ZYRTEC 10 MG TABS No current facility-administered medications for this encounter. Facility-Administered Medications Ordered in Other Encounters Medication ??? dexamethasone (DECADRON) injection 10 mg ??? lidocaine (XYLOCAINE MPF) 1 % injection Procedures: TFE Left L5 & S1 Diagnosis/Indication:Lumbar Transforaminal epidural injection M54.17, M48.06, M51.17 Indication for Procedure: Intractable radicular [...] identified, and marked by Dr. Mirza. Responsible screw driver operator is not needed due to the patient not having sedation. The patient was placed in a prone position and was prepped with Chloraprep. Fluoroscopy: Procedure done under fluoroscopy; verifying needle placement with fluoroscopy . The transverse process/sacral foramen was identified and [...] foramen in Lat fluoroscopic visualization. Nerve Root injected :Left L5 & S1. Total Lidocaine: !%; 6ml Dexamethasone 10mmg per level Isovue-M 200, .5cc per level Estimated Blood Loss: None Isovue-M 200 waste: 9cc The patient tolerated the procedure well and [...] st Contact Info) Description 06/03/2024 1:00 PM PROTOTYPE DEICER ASSEMBLER Appointment [facility] - Rheumatology [address] [place] [address] 06/03/2024 2:00 PM PROTOTYPE DEICER ASSEMBLER Office Visit [facility] - Rheumatology [address] [place] [address] Gloria Smith MD [address] [place] [phone] documented as of this encounter Procedures Procedure Name Priority Date/Time Associated Diagnosis Comments PAIN MANAGEMENT PROCEDURE TIME Routine 10/07/2018 12:50 PM CDT Radiculopathy of lumbar region Radiculopathy of lumbosacral region documented in this encounter Results * PAIN MANAGEMENT PROCEDURE TIME (10/07/2018 12:50 PM CDT) Anatomical Region Laterality Modality X-Ray Angiograph y Narrative 10/07/2018 1:48 PM CDT Alejandro Mirza MD ? 10/07/2018 ??1:48 PM ? Left L 5 & S1 Transforaminal Epidural Injection Patient Name: Chalino Deng ?Provider: Alejandro Mirza MD Date of : 1960 ?Date: 10/07/2018 PCP: Tomas Hyman MD Allergies: Allergies as of 10/07/2018 - Complete 10/07/2018 Allergen Reaction Noted ? ? Plaquenil [hydroxychloroquine [...] buPROPion (WELLBUTRIN) 100 MG tablet ? ? megbyqggdiq-bsak-ephzthpb, PF, (REFRESH OPTIVE ADVANCED PF) 0.5-1-0.5 % SOLN ? ? carvedilol (COREG) 12.5 MG tablet ? ? ferrous sulfate 325 (65 FE) MG tablet ? ? gabapentin (NEURONTIN) 300 MG capsule ? ? Qwsesavircb-Cqeuhjvib-Wbd C-Mn (GLUCOSAMINE CHONDR 1500 COMPLX PO) ? [...] tablet ? ? ZYRTEC 10 MG TABS No current facility-administered medications for this encounter. ?? Facility-Administered Medications Ordered in Other Encounters Medication ? ? dexamethasone (DECADRON) injection 10 mg ? ? lidocaine (XYLOCAINE MPF) 1 % injection Procedures: TFE ??Left ??L5 & S1 ?? Diagnosis/Indication:Lumbar Transforaminal epidural injection M54.17, M48.06, M51.17 Indication for Procedure: Intractable radicular [...] identified, site identified, and marked by Dr. iMrza. ??Responsible screw driver operator is not needed due to the patient not having sedation. The patient was placed in a prone position and was prepped with Chloraprep. Fluoroscopy: ??Procedure done under fluoroscopy; verifying needle placement with ??fluoroscopy . ??The transverse process/sacral foramen was identified and lidocaine [...] foramen in Lat fluoroscopic visualization. Nerve Root injected :Left L5 & S1. Total Lidocaine: !%; 6ml Dexamethasone 10mg: ??5mg per level Isovue-M 200, .5cc per level Estimated Blood Loss: None ?? Isovue-M 200 waste: 9cc ? The patient tolerated the procedure well [...] Thoracic or lumbosacral neuritis or radiculitis, unspecified Radiculopathy of lumbosacral region Thoracic or lumbosacral neuritis or radiculitis, unspecified documented in this encounter Care Teams Systems Tester Relationship Specialty Start Date End Date Tomas Hyman MD [address] [facility] [address] [place] [address] PCP - General Family Medicine 5/9/19 Isidro Heredia MD Rheumatology 02/09/11 documented as of this encounter
--- OUTSIDE RECORDS SUMMARY | 2024-05-03 04:07 | XMS_ITS | Encounter Summary ---
Author Organization [facility] Address [address] [facility] [place] [address] Care Team Providers Care Art Framing Manager Name Role Phone Isidro Heredia MD Unavailable [phone] Encounter Details Date Type Department Care Team (Late st Contact Info) Description 08/16/2018 Orders Only [facility] - Rheumatology [address] [place] [address] Isidro Heredia MD [address] [place] [address] Encounter for long-term (current) use [...] st Contact Info) Description 06/03/2024 1:00 PM PHOTO TECHNICIAN Appointment [facility] - Rheumatology [address] [place] [address] 06/03/2024 2:00 PM PHOTO TECHNICIAN Office Visit [facility] - Rheumatology [address] [place] [address] Gloria Smith MD [address] [place] [phone] documented as of this encounter Procedures Procedure Name Priority Date/Time Associated Diagnosis Comments CBC W AUTO DIFFERENTIAL Routine 10/24/2018 10:00 AM CDT Encounter for long-term (current) use of medications documented in this encounter Results * (ABNORMAL) CBC WITH DIFFERENTIAL (10/24/2018 10:00 AM CDT) WBC 8.6 3.4 - 10.8 x10E3/uL [facility] INSURANCE BILL RBC 3.81(L) 4.14 - 5.80 x10E6/uL [facility] INSURANCE BILL Hemoglobin 11.8(L) 13.0 - 17.7 g/dL [facility] INSURANCE BILL Hematocrit 35.9(L) 37.5 - 51.0 % [facility] INSURANCE BILL MCV 94 79 - 97 fL [facility] INSURANCE BILL MCH 31.0 26.6 - 33.0 pg [facility] INSURANCE BILL MCHC 32.9 31.5 - 35.7 g/dL [facility] INSURANCE BILL RDW 13.9 12.3 - 15.4 % [facility] INSURANCE BILL Platelet Count 160 150 - 450 x10E3/uL [facility] INSURANCE BILL Granulocytes % 53 Not Estab. % [facility] INSURANCE BILL Lymphocytes % 31 Not Estab. % [facility] INSURANCE BILL Monocytes % 9 Not Estab. % [facility] INSURANCE BILL Eosinophils % 6 Not Estab. % [facility] INSURANCE BILL Basophils % 1 Not Estab. % [facility] INSURANCE BILL Immature Cells NOT NEEDED [facility] INSURANCE BILL Comment:Ancillary determined the test is not needed Granulocytes Absolute 4.5 1.4 - 7.0 x10E3/uL [facility] INSURANCE BILL Lymphocytes Absolute 2.7 0.7 - 3.1 x10E3/uL [facility] INSURANCE BILL Monocytes Absolute 0.7 0.1 - 0.9 x10E3/uL [facility] INSURANCE BILL Eosinophils Absolute 0.5(H) 0.0 - 0.4 x10E3/uL [facility] INSURANCE BILL Basophils Absolute 0.1 0.0 - 0.2 x10E3/uL [facility] INSURANCE BILL Immature Granulocytes 0 Not Estab. % [facility] INSURANCE BILL Immature Granulocytes Absolute 0.0 0.0 - 0.1 x10E3/uL [facility] INSURANCE BILL nRBC NOT NEEDED [facility] INSURANCE BILL Comment:Ancillary determined the test is not needed Comment Hematology NOT NEEDED [facility] INSURANCE BILL Comment:Ancillary determined the test is not needed Blood BLOOD SPECIMEN / Unknown 10/24/2018 10:00 AM CDT 10/24/2018 Narrative Resulting Agency Comment Lab Testing performed at: [facility] ??[facility] [id number] Isidro Heredia MD LAB - HEMATOLOGY OR DERABLES [facility] INSURANCE BILL [address] [place] [address] documented in this encounter Visit Diagnoses Diagnosis Encounter for long-term (current) use of medications Encounter for long-term (current) use of other medications documented in this encounter Care Teams Art Framing Manager Relationship Specialty Start Date End Date Isidro Heredia MD Rheumatology 02/09/11 documented as of this encounter
--- OUTSIDE RECORDS SUMMARY | 2024-05-03 04:07 | XMS_ITS | Encounter Summary ---
Author Organization [facility] Address [address] [facility] [place] [address] Care Team Providers Care Environmental Lawyer Name Role Phone Isidro Heredia MD Unavailable [phone] Tomas Hyman MD Primary Care Provider [phone] Reason for Visit * Reason Onset Date Comments MEDICATION REFILL 07/13/2019 Encounter Details Date Type Department Care Team (Late st Contact Info) Description 07/13/2019 Refill [facility] - Rheumatology [address] [place] [address] Gloria Smith MD [address] [place] [phone] MEDICATION REFILL Social History Tobacco Use [...] (Late Contact Info) Description 06/03/2024 1:00 PM TOLL LINE REPAIRER Appointment [facility] - Rheumatology [address] [place] [address] 06/03/2024 2:00 PM TOLL LINE REPAIRER Office Visit [facility] - Rheumatology [address] [place] [address] Gloria Smith MD [address] [place] [phone] documented as of this encounter Visit Diagnoses Not on filedocumented in this encounter Care Teams Environmental Lawyer Relationship Specialty Start Date End Date Tomas Hyman MD [address] [place] [address] PCP - General Family Medicine 09/05/18 Isidro Heredia MD Rheumatology 02/09/11 documented as of this encounter
--- OUTSIDE RECORDS SUMMARY | 2024-05-03 04:07 | XMS_ITS | Encounter Summary ---
Author Organization [facility] Address [address] [facility] [place] [address] Care Team Providers Care Meat Slicer Name Role Phone Isidro Heredia MD Unavailable Tomas Hyman MD Primary Care Provider [phone] Reason for Visit * Reason Onset Date Comments Infusion 02/28/2019 Encounter Details Date Type Department Care Team (Late st Contact Info) Description 02/28/2019 Telephone [facility] Medical [facility] - Rheumatology [address] [place] [address] Gloria Smith MD [address] [place] [phone] Infusion Social History Tobacco Use Types [...] Telephone Encounter - Jody Sahu RN - 02/28/2019 1:03 PM CDT Spoke with patient, states he received his last remicade infusion 01/24 and is having increased swelling and pain in his hands. He is currently on Remicade 400mg every [address] Smith notified and she states to bring pt in next week at 6 weeks for infusion and to have a F/U with her in March toevaluate the dose and interval change. Will call patiewnt back to schedule infusion. * Telephone Encounter - Amanda Salter - 02/28/2019 12:06 PM CDT Images from the original note were not included. Carey Loza ?? 01/02/19 1:40 PM Note Called patient left a message explaining that all the orders for his infusions needs to be under DrSong since Dr Heredia is no longer here. With the lateness of the Dr Appointment there are no infusion openings. Patient calling back would like to get infusion treatments set up spoke to Carey a couple of monthsago now ready to schedule Call patient back documented in this encounter Plan of Treatment Upcoming Encounters Date Type Department Care Team (Late st Contact Info) Description 06/03/2024 1:00 PM DOCTOR OF OPTOMETRY Appointment [facility] - Rheumatology [address] [place] [address] [phone] 06/03/2024 2:00 PM DOCTOR OF OPTOMETRY Office Visit [facility] - Rheumatology [address] [place] [address] [phone] Gloria Smith MD [address] [place] [phone] documented as of this encounter Visit Diagnoses Not on filedocumented in this encounter Care Teams Meat Slicer Relationship Specialty Start Date End Date Tomas Hyman MD [address] [place] [address] PCP - General Family Medicine 09/05/18 Isidro Heredia MD Rheumatology 02/09/11 documented as of this encounter
--- OUTSIDE RECORDS SUMMARY | 2024-05-03 04:07 | XMS_ITS | Encounter Summary ---
Author Organization [facility] Address [address] [place] [address] Care Team Providers Care Manager Massage Department Name Role Phone Isidro Heredia MD Unavailable [phone] Tomas Hyman MD Primary Care Provider [phone] Reason for Visit * Reason Comments Arthritis follow up Encounter Details Date Type Department Care Team (Late st Contact Info) Description 04/18/2019 1:00 PM BROWNFIELD REDEVELOPMENT SPECIALIST Office Visit [facility] - Rheumatology [address] [place] [address] Gloria Smith MD [address] [place] [phone] Osteoporosis, unspecified osteoporosis type, unspecified pathological fracture presence (Primary Dx); Rheumatoid arthritis of multiple sites [...] Sign Reading Time Taken Comments Blood Pressure 106/72 04/18/2019 12:38 PM BROWNFIELD REDEVELOPMENT SPECIALIST Pulse 94 04/18/2019 12:38 PM BROWNFIELD REDEVELOPMENT SPECIALIST Temperature 37.2 ??C (98.9 ??F) 04/18/2019 12:[address] Respiratory Rate - - Oxygen Saturation - - Inhaled Oxygen Concentration - - Weight - - Height - - Body Mass Index - - documented in this encounter Patient Instructions * Patient Instructions* Gloria Smith MD - 04/18/2019 1:02 PM BROWNFIELD REDEVELOPMENT SPECIALIST Decreased methotrexate to 4 tablets per week. Continue folic acid 1mg daily. Decrease prednisone to 5mg (1/2 tablet) twice a day. Bone density scan. Stop Fosamax after completing the 90 day refill. Switch Flexeril to tizanidine as muscle relaxant for neck pain. NFIELD REDEVELOPMENT SPECIALIST documented in this encounter Progress Notes * Gloria Smith MD - 07/21/2019 4:00 PM CDT DEXA bone density: T score -1.2 in L spine, -1.2 in L femoral neck, -0.9 in R femoral neck, 0.2 in total hip, 0 in bilateral average total hip, -0.2 in right total hip. Will stop alendronate after last refill. He should continue to take OTC vitamin and calcium. * Gloria Smith MD - 04/18/2019 12:48 PM CST CHIEF COMPLAINTS: Follow-up on rheumatoid arthritis HISTORY OF PRESENT ILLNESS: Chalino Deng is a 58 year old white male with past medical history of seropositive rheumatoid arthritis, diverticulitis, sepsis on Actemra, recurrent UTIs, chronic back pain and lumbar radiculopathy status post epidural injections, chronic opioids use, who returns for follow-up on rheumatoid arthritis. (Raquel 1:160, ccp 22+ in 2009, rf 10.2) Medication history: mtx 2004-present Remicade 10/2004-08/02/2005 lost efficacy. Resumed in February, - present Orencia 09/13/2005-11/22/2005 allergic reaction Rituxan 12/06/2005-05/01/2006, inadequate response, Humira 08/13/2006, effective. No details. actemra ?- 2018, urosepsis. History of diverticulitis Currently takes methotrexate 15 mg weekly, naproxen 200 mg b.i.d., gabapentin 300 mg t.i.d., metaxalone 800 mg q.h.s.. on Remicade 300 mg Q 6 weeks. Last seen on January 08, 2019. Infliximab was increased to 400 mg every 7 weeks and he did not notice much improvement. States that he feels much better after each infusion for 2 weeks, where swelling hands goes down, pain and stiffness much better. Symptoms gradually come back towards the end ofthe interval. Today he complains of pain in the neck, hands, left shoulder, knees. Bilateral hands are swollen. Morning stiffness is prolonged. Patient states that methotrexate has never worked well for him. He increased the prednisone to 20 mg per day and continues that does because misunderstanding, but he has not noticed much improvement of joint symptoms. Denies fever, chills, rash. When traveling [place] after his last visit and had a cold that lasted for a while, so he felt poorly until recently. Inflammatory markers were normal. Patient was diagnosed of rheumatoid arthritis in [...] for joint pain and neuralgia from shingles. Takes Percocet and he decrease the dose to about 3 tablets daily. According to the notes, patient had small [...] file FAMILY HISTORY: Family History Problem Relation Age of Onset ??? Other Mother aneursym ??? Hypertension Mother ??? Stroke Mother ??? Other Father asbestos exposure ??? Heart Failure Father REVIEW OF SYSTEM: A complete review of systems is negative except as per HPI. PHYSICAL EXAM: BP 106/72 Pulse 94 Temp 98.9 ??F (37.2 ??C) General: in no acute distress. HEENT: anicteric [...] and grossly normal. MSK: tenderness and swelling MCP joints bilaterally, tenderness in left shoulder. No tenderness in the ankles, elbows. Mild tenderness in neck. LABORATORY: Recent Labs Component Name 03/06/19 1134 10/24/18 1000 07/11/18 0930 WBC 9.4 8.6 7.5 RBC 4.18 3.81* 3.92* HGB 12.6 11.8* 11.6* HCT 41.7 35.9* 35.5* MCV 99.8* 94 91 MCHC 30.2* 32.9 32.7 PLTCOUNT 194 160 192 MONOCYTPCT 6.4 9 6 EOSINPCT 2.2 6 3 LYMPHABS 2.42 2.7 2.5 MONOCYTABS 0.60 0.7 0.4 BASOABS 0.05 0.1 0.1 IMMGRANSABS 0.04 0.0 0.0 Recent Labs Component Name 03/06/19 1134 10/24/18 1000 07/11/18 0930 SODIUM 139 142 138 [...] 07/11/18 0930 SEDRATE 6 8 14 IMAGINGS: No results found. OTHER DIAGNOSTICS: ASSESSMENT & PLAN: Seropositive rheumatoid arthritis Chronic back pain and lumbar radiculopathy, following with pain management. (Raquel 1:160, ccp 22+ in 2009, rf 10.2, esr-, crp) 58-year-old white male with seropositive rheumatoid arthritis. Rheumatoid arthritis controlled on infliximab 400 mg every 6 weeks, methotrexate 15 mg weekly. Methotrexate has never worked well for him. Increase of infliximab has not made much difference yet. Synovitis in hands. Normal inflammatory markers. - decrease methotrexate to 10 mg per week. Added folic acid 1 mg daily - decrease prednisone to 5 mg b.i.d. - switch Flexeril to tizanidine for neck pain - x-ray of cervical spine - increase infliximab to 600 mg every 6 weeks. - return to clinic in 3 months. Osteoporosis - repeat DEXA bone density scan - he has been on alendronate since 2014. Will discontinue alendronate after this 90 day refill. Chronic pain - Weaning percocet from Dr. Heredia. NFIELD REDEVELOPMENT SPECIALIST documented in this encounter Plan of Treatment Upcoming Encounters Date Type Department Care Team (Late st Contact Info) Description 06/03/2024 1:00 PM BROWNFIELD REDEVELOPMENT SPECIALIST Appointment [facility] - Rheumatology [address] [place] [phone] 06/03/2024 2:00 PM BROWNFIELD REDEVELOPMENT SPECIALIST Office Visit [facility] - Rheumatology [address] [place] [phone] Gloria Smith MD [facility] [place] [phone] documented as of this encounter Results * XR CERVICAL SPINE 2 OR 3VW (04/18/2019 1:48 PM BROWNFIELD REDEVELOPMENT SPECIALIST) Anatomical Region Laterality Modality Spine Radiographic Reena ging 04/18/2019 1:56 PM BROWNFIELD REDEVELOPMENT SPECIALIST Impressions 04/18/2019 1:59 PM BROWNFIELD REDEVELOPMENT SPECIALIST There is moderate disc space narrowing at C5-6 and C6-7 with osteophytosis at C5-6. This could be further evaluated by MRI if indicated. Reading Radiologist: Cristina Avalos MD on 04/18/2019 at 1:59 PM Narrative 04/18/2019 1:59 PM BROWNFIELD REDEVELOPMENT SPECIALIST Cervical spine AP and lateral INDICATION: Neck [...] documented in this encounter Visit Diagnoses Diagnosis Osteoporosis, unspecified osteoporosis type, unspecified pathological fracture presence- Primary Rheumatoid arthritis of multiple sites with negative rheumatoid factor (HCC) Osteoporosis, unspecified osteoporosis type, unspecified pathological fracture presence Rheumatoid arthritis of multiple sites with negative rheumatoid factor (HCC) documented in this encounter Care Teams Manager Massage Department Relationship Specialty Start Date End Date Tomas Hyman MD [address] [place] [address] PCP - General Family Medicine 09/05/18 Isidro Heredia MD Rheumatology 02/09/11 documented as of this encounter
--- OUTSIDE RECORDS SUMMARY | 2024-05-03 04:07 | XMS_ITS | Encounter Summary ---
Author Organization [facility] Address [address] [place] [address] Care Team Providers Care Transformation Manager Name Role Phone Isidro Heredia MD Unavailable [phone] Tomas Hyman MD Primary Care Provider [phone] Encounter Details Date Type Department Care Team (Late st Contact Info) Description 04/18/2019 1:33 PM FRAME TABLE OPERATOR HELPER - 04/18/2019 11:59 PM [facility] Encounter [facility] - Medical Imaging [address] [place] [address] Gloria Smith MD [address] [place] [phone] Discharge Disposition: Home or Self [...] 1 (one) tablet by mouth at bedtime llkhlicjroo-qxun-ije ysorb, PF, 0.5-1-0.5 % SOLN Instill 1 [...] tablet by mouth once daily 90 tablet 04/15/2019 07/13/2019 predniSONE (DELTASONE) 10 MG tablet Take 1 tablet by mouth 2 times daily 180 tablet 1 12/12/2018 07/14/2019 tiZANidine (ZANAFLEX) 4 MG tablet Take 1 tablet by mouth at bedtime 30 tablet 1 04/18/2019 01/17/2021 documented as of this encounter Progress Notes * Gloria Smith MD - 04/18/2019 11:[address] Xray showed degenerative disk disease and arthritis in the neck. Continue the same medications. E TABLE OPERATOR HELPER documented in this encounter Plan of Treatment Upcoming Encounters Date Type Department Care Team (Late st Contact Info) Description 06/03/2024 1:00 PM FRAME TABLE OPERATOR HELPER Appointment [facility] - Rheumatology [address] [place] [address] 06/03/2024 2:00 PM FRAME TABLE OPERATOR HELPER Office Visit [facility] - Rheumatology [address] [place] [address] Gloria Smith MD [address] [place] [phone] documented as of this encounter Procedures Procedure Name Priority Date/Time Associated Diagnosis Comments XR CERVICAL SPINE 2 OR 3VW Routine 04/18/2019 1:48 PM FRAME TABLE OPERATOR HELPER Osteoporosis, unspecified osteoporosis type, unspecified pathological fracture presence Rheumatoid arthritis of multiple sites with negative rheumatoid factor (HCC) documented in this encounter Results * XR CERVICAL SPINE 2 OR 3VW (04/18/2019 1:48 PM FRAME TABLE OPERATOR HELPER) Anatomical Region Laterality Modality Spine Radiographic Reena ging 04/18/2019 1:56 PM FRAME TABLE OPERATOR HELPER Impressions 04/18/2019 1:59 PM FRAME TABLE OPERATOR HELPER There is moderate disc space narrowing at C5-6 and C6-7 with osteophytosis at C5-6. This could be further evaluated by MRI if indicated. Reading Radiologist: Cristina Avalos MD on 04/18/2019 at 1:59 PM Narrative 04/18/2019 1:59 PM FRAME TABLE OPERATOR HELPER Cervical spine AP and lateral INDICATION: Neck [...] (HCC) documented in this encounter Care Teams Transformation Manager Relationship Specialty Start Date End Date Tomas Hyman MD [address] [place] [address] PCP - General Family Medicine 09/05/18 Isidro Heredia MD Rheumatology 02/09/11 documented as of this encounter
--- OUTSIDE RECORDS SUMMARY | 2024-05-03 04:07 | XMS_ITS | Encounter Summary ---
Author Organization [facility] Address [address] [place] [address] Care Team Providers Care Lead Java Programmer Name Role Phone Isidro Heredia MD Unavailable [phone] Tomas Hyman MD Primary Care Provider [phone] Reason for Visit * Reason Comments Establish Care pre lavon Encounter Details Date Type Department Care Team (Late st Contact Info) Description 01/08/2019 1:40 PM CDT Office Visit [facility] - Rheumatology [address] [place] [address] Gloria Smith MD [address] [place] [phone] Rheumatoid arthritis of multiple sites with [...] Sign Reading Time Taken Comments Blood Pressure 123/85 01/08/2019 1:51 PM CDT Pulse 86 01/08/2019 1:51 PM CDT Temperature - - Respiratory Rate - - Oxygen Saturation - - Inhaled Oxygen Concentration - - Weight 109.8 kg (242 lb) 01/08/2019 1:51 PM CDT Height - - Body Mass Index 34.72 09/05/2018 10:54 AM CDT documented in this encounter Progress Notes * Gloria Smith MD - 01/08/2019 1:40 PM CDT CHIEF COMPLAINTS: Management of rheumatoid arthritis, joint pain HISTORY OF PRESENT ILLNESS: Chalino Deng is a 58 year old white male with past medical history of seropositive rheumatoid arthritis, diverticulitis, sepsis on Actemra, recurrent UTIs, chronic back pain and lumbar radiculopathy status post epidural injections, chronic opioids use, who presents to establish care for management ofrheumatoid arthritis. (Raquel 1:160, ccp 22+ in 2009, rf 10.2, esr-, crp) Medication history: mtx 2004-present Remicade 10/2004-08/02/2005 lost efficacy. Resumed in February, - present Orencia 09/13/2005-11/22/2005 allergic reaction Rituxan 12/06/2005-05/01/2006, inadequate response, Humira 08/13/2006, effective. No details. actemra ?- 2018, urosepsis. History of diverticulitis Currently takes methotrexate 15 mg weekly, naproxen 200 mg b.i.d., gabapentin 300 mg t.i.d., metaxalone 800 mg q.h.s.. on Remicade 300 mg Q 7 weeks. Patient was diagnosed of rheumatoid arthritis in [...] except as per HPI. PHYSICAL EXAM: BP 123/85 Pulse 86 Wt 109.8 kg (242 lb) BMI 34.72 kg/m2 General: in no acute distress. HEENT: [...] intact, strength symmetric and grossly normal. MSK: mild tenderness and swelling in wrists, MCP joints, PIP joints bilaterally. Mild tenderness inbilateral shoulders, knees. No tenderness in the ankles, elbows. Mild tenderness in lower back and SI joint areas bilaterally. LABORATORY: Recent Labs Component Name 10/24/18 1000 07/11/18 0930 03/07/18 1200 WBC 8.6 7.5 10.8 RBC 3.81* 3.92* 4.07* HGB 11.8* 11.6* 12.3* HCT 35.9* 35.5* 37.6 MCV 94 91 92 MCHC 32.9 32.7 32.7 PLTCOUNT 160 192 225 MONOCYTPCT 9 6 9 EOSINPCT 6 3 4 LYMPHABS 2.7 2.5 2.0 MONOCYTABS 0.7 0.4 1.0* BASOABS 0.1 0.1 0.1 IMMGRANSABS 0.0 0.0 0.0 Recent Labs Component Name 10/24/18 1000 07/11/18 0930 03/07/18 1200 SODIUM 142 138 142 POTASSIUM 4.4 4.6 3.4* CHLORIDE 104 101 105 CO2 23 21 23 BUN 14 15 13 CREATININE 1.17 1.13 1.02 GLUCOSE 95 130* 135* CALCIUM 9.3 9.2 8.9 ALBUMIN 4.2 4.2 3.8 ALKPHOS 54 52 42 ALT 25 19 20 AST 25 24 27 TBIL 0.4 0.3 0.3 TPROT 6.4 6.5 6.1 EGFR 69 73 82 Recent Labs Component Name 04/07/15 1630 08/12/14 1408 08/12/14 1403 CRP <0.29 1.6 1.5 Recent Labs Component Name 10/24/18 1000 07/11/18 0930 03/07/18 1200 SEDRATE 8 14 23 IMAGINGS: No results found. OTHER DIAGNOSTICS: ASSESSMENT & PLAN: Seropositive rheumatoid arthritis Chronic back pain and lumbar radiculopathy, following with pain management. (Raquel 1:160, ccp 22+ in 2009, rf 10.2, esr-, crp) 58-year-old white male with seropositive rheumatoid arthritis. On infliximab 300 mg Q 7 weeks, lastinfusion on October 28, 2018. On methotrexate 15 mg weekly, prednisone 5 mg b.i.d.. Also takes naproxen, gabapentin, muscle relaxant. - synovitis in hands on exam. Rheumatoid arthritis is active. - increase infliximab to 400 mg Q 7 weeks starting 2 weeks from now. - continue methotrexate 15 mg weekly. Folic acid 1 mg daily. - continue prednisone 5 mg b.i.d.. Advised patient to increase prednisone to 20 mg for the next couple weeks while off Remicade. - he will get shingrix vaccination with his primary care. - renewed pantoprazole with no refill. Changed muscle relaxant to Flexeril 10 mg q.h.s.. Ordered gabapentin 300 mg t.i.d.. - encouraged patient to continue to limit Percocet. He will call and schedule an appointment with pain management. - return to clinic on the 2nd infusion from now. Repeat labs then. documented in this encounter Plan of Treatment Upcoming Encounters Date Type Department Care Team (Late st Contact Info) Description 06/03/2024 1:00 PM BLEACHING SUPERVISOR Appointment [facility] - Rheumatology [address] [place] [phone] 06/03/2024 2:00 PM BLEACHING SUPERVISOR Office Visit [facility] - Rheumatology [address] [place] [address] Gloria Smith MD [address] [place] [phone] documented as of this encounter Visit Diagnoses Diagnosis Rheumatoid arthritis of multiple sites with negative rheumatoid factor (HCC)- Primary documented in this encounter Care Teams Lead Java Programmer Relationship Specialty Start Date End Date Toams Hyman MD [address] [place] [address] PCP - General Family Medicine 09/05/18 Isidro Heredia MD Rheumatology 02/09/11 documented as of this encounter
--- OUTSIDE RECORDS SUMMARY | 2024-05-03 04:07 | XMS_ITS | Encounter Summary ---
Author Organization [facility] Address [address] [facility] [place] [address] Care Team Providers Care Dispatcher Refinery Name Role Phone Isidro Heredia MD Unavailable [phone] Tomas Hyman MD Primary Care Provider [phone] Encounter Details Date Type Department Care Team (Latest Contact Info) Description 08/05/2019 10:45 AM CDT - 08/05/2019 11:59 PM CDT Hospital Encounter [facility] [address] [place] [address] [place] [id number] [place] [address] Discharge Disposition: Home or Self [...] have Coronavirus / COVID-19? No / Unsure 08/04/2019 2:19 PM CDT documented as of this encounter Last Filed Vital Signs Vital Sign Reading Time Taken Comments Blood Pressure 111/73 08/05/2019 11:05 AM CDT Pulse 93 08/05/2019 11:05 AM CDT Temperature - - Respiratory Rate 16 08/05/2019 11:05 AM CDT Oxygen Saturation 96% 08/05/2019 11:05 AM CDT Inhaled Oxygen Concentration - - Weight - - Height - - Body Mass Index - - documented in this encounter Discharge Instructions * Patient Instructions* Kristina Paris RN - 08/05/2019 10:45 AM CDT [facility] Pain Discharge Instructions Selective [...] headache, or any other problems, please call [phone] or after hours callDr. Barnett at [phone] and tell them your physician's name. The exchange will alert the physician home care consultant. If sedation is given: No sedation given. For Your Next Visit: No additional instructions. Other Instructions: May remove band-aid in 12 Hours. Return in 3-[address] Barnett documented in this encounter Medications at Time of Discharge Medication Sig Dispensed Refills Start Date End Date atorvastatin (LIPITOR) 40 MG tablet Take 1 (one) tablet by mouth at bedtime owzxahwqnua-qvps-wu lysorb, PF, 0.5-1-0.5 % SOLN Instill 1 [...] 1 (one) tablet by mouth once daily (nov Sept acetaminophen (TYLENOL) 325 MG tablet [...] H&P Notes * Anu Barnett MD - 08/05/2019 10:45 AM CDT Images from the original note were not included. Chief Complaint(s): Chronic intractable, severe, persistent and uncontrolled and worsening lower back and LE pain. Painas severe as 10/10 daily. Presents for L4/L5 paramedian left side LESI for severe pain control which is currently uncontrolled, and which would otherwise lead patient to be hospitalized or seek care in the Emergency Room HPI: Patient is a 58-year-old right handed CM with a history of low back and bilateral lower extremity pain, who has been treated by Dr. Mirza. Since April 2016. Comorbid health issues include rheumatoid arthritis-seropositive, diverticulitis, sepsis, recurrentUTIs, osteoporosis chronic back pain with radiculopathy, and chronic opioid use, which is apparently being weaned by Dr. Heredia. Patient reports that he has undergone prior LESI in September and October, by Dr. Mirza with >60% pain relief lasting for over four months prior to pain recurrence. He now presents to request repeat KIMBERLEY for severe pain control. Patient presents to report acute on chronic lower back and obdulia LE pain along the anterolateral thigh to the distal obdulia LE to involve subjective LE weakness, n/t and [...] last one year without sustained pain relief. Patient has been attending physical therapy at [place], [place] since 07/02/2019 without sustained pain releif. Presents for L4/L5 paramedian left side LESI for severe pain control. R/b/a discussed and answered. ASA 2. Risks, benefits, and alternatives were discussed including [...] a fluoroscopically guided lumbar epidural steroid injection. MRI results reviewed today-(DATED 07/03/2019) include L4-L5 [...] with plain water Orally every 7 days. [place] 5-325 MG Tablet 1 tablet as needed Orally every 6 hrs. Naproxen 500 MG Tablet 1 tablet with food or milk as needed Orally every 12 hrs. Gabapentin 300 MG Capsule 1 capsule Orally Once a day. Carvedilol 12.5 MG Tablet as directed Orally [...] as directed Intravenous 400mg every 6 weeks. Medication List reviewed and reconciled with the [...] with: family. Marital status: . Occupation: retired. ROS: General/Constitutional Denies Change in appetite. Denies Chills. Denies Fatigue. Denies Fever. Denies Headache. Denies Lightheadedness. Admits Sleep disturbance. Denies Weight gain. Denies Weight loss. + severe lower back and left LE pain. Objective: Vitals: Ht 70 in, Wt 235 lbs, BMI 33.72 Index, ELADIA 52, SOAPP-R 7, Ht-cm 177.8 cm, Wt-kg 106.6 kg Examination: General Examination in no acute distress, well developed, well nourished categoryPropId= [id number] examid= [id number] GENERALAPPEARANCE: in no acute distress, well developed, well nourished. NC/AT, Symmetrical categoryPropId= [id number] examid= [id number] HEAD: NC/AT, Symmetrical. PERRLA, EOMI, Visual keen intact categoryPropId= [id number] examid= [id number] EYES: PERRLA, EOMI, Visual keen intact. Hearing intact categoryPropId= [id number] examid= [id number] EARS: Hearing intact. Supple, non-tender, no thyroidomegaly categoryPropId= [id number] examid= [id number] NECK/THYROID: Supple, non-tender, no thyroidomegaly. Lungs clear w/o wheezes, no rales or rhonchi categoryPropId= [id number] examid= [id number] RESPIRATORY: Lungs clear w/o wheezes, no rales or rhonchi. regular rate & rhythm, no murmurs categoryPropId= [id number] examid= [id number] HEART: regular rate & rhythm, no murmurs. [...] cm Diameter Left calf: 43 cm categoryPropId= [id number] examid= [id number] MUSCULOSKELETAL: ambulates with slow antalgic gait with [...] Skin w/o lesions, moist, well perfused categoryPropId= [id number] examid= [id number] SKIN: Skin w/o lesions, moist, well perfused. Patient alert & oriented, appropriate mood & affect, speech normal, tone normal, affect appropriate, NAD. Patient denies suicidal ideation. Patient denies homicidal ideation. categoryPropId= [id number] examid= [id number] PSYCH: Patient alert & oriented, appropriate mood & affect, speech normal, tone normal, affect appropriate, NAD. Patient denies suicidal ideation. Patient denieshomicidal ideation.. Active bowel sounds, soft, no mass or organomegaly categoryPropId= [id number] examid= [id number] GASTROINTESTINAL: Active bowel sounds, soft, no mass or organomegaly. Assessment: Other spondylosis with radiculopathy, lumbosacral region - M47.27 (Primary) Other intervertebral disc degeneration, lumbosacral region - M51.37 Low back pain - M54.5 Chronic pain syndrome - G89.4 Plan: Treatment: Other spondylosis with radiculopathy, lumbosacral region Notes: Lumbar Epidural steroid injection with fluoroscopic guidance at L4/L5 paramedian left side. Next Appointment: 4 Weeks (Reason: Re-eval via telehealth vs in office follow up with IT RISK AND ASSURANCE SENIOR MANAGER s/p DOI) documented in this encounter OR Notes * Operative - Anu Barnett MD - 08/05/2019 10:45 AM CDT Procedures: LESI: Procedure Performed Lumbar Epidural steroid injection with fluoroscopic guidance at L4/L5 paramedian left side. Procedure DATE OF PROCEDURE: 08/05/2019 SURGEON: ANU BARNETT MD PRE-OPERATIVE DIAGNOSIS: Other [...] DRAINS: None. COMPLICATIONS: None. CONDITION POSTPROCEDURE: Stable. SUPERVISOR FRONT: None. INDICATIONS: Please refer to H/P for [...] the operative permit was explained and signed. Antoine discussed with the patient the risks, benefits, [...] into the epidural space. 1 cc of Isovue 200 contrast was easily injected after negative aspiration of CSF or blood. Excellent outlining of the epidural spcace was witnessed. The patient then received 5 cc of preservative free normal saline along with 2 cc preservative free0.25% PF Marcaine and 80 mg of DepoMedrol (80mg/ml). The needles were removed intact. The patient tolerated the procedure well and there were no complications. The patient was taken to the recovery area. The patient remained in stable condition with no apparent complications. Postprocedure instructions were given to the patient and a follow up appointment was confirmed. The patient was also discharged with information on how to reach the clinic or home care consultant physician at anytime for questions or complaints. documented in this encounter Plan of Treatment Upcoming Encounters Date Type Department Care Team (Late st Contact Info) Description 06/03/2024 1:00 PM ADJUNCT INSTRUCTOR CHEMISTRY Appointment [facility] - Rheumatology [address] [place] [address] 06/03/2024 2:00 PM ADJUNCT INSTRUCTOR CHEMISTRY Office Visit [facility] - Rheumatology [address] [place] [address] [phone] Gloria Smith MD [address] [place] [phone] Pending Results Name Type Priority Associated Diagnoses Date /Time PAIN MANAGEMENT PROCEDURE TIME Imaging Routine Degeneration of lumbosacral intervertebral disc Lumbosacral radiculopathy due to osteoarthritis of spine Low back pain, unspecified back pain laterality, unspecified chronicity, unspecified whether sciatica present Chronic pain disorder 08/05/2019 11:00 AM CDT documented as of this encounter Visit Diagnoses Diagnosis Degeneration of lumbosacral intervertebral disc Degeneration of lumbar or lumbosacral intervertebral disc Lumbosacral radiculopathy due to osteoarthritis of spine Low back pain, unspecified back pain laterality, unspecified chronicity, unspecified whether sciatica present Chronic pain disorder Chronic pain syndrome documented in this encounter Administered Medications Inactive Administered Medications - up to 3 most recent administrations Medication Order MAR Action Action Date Dose Rate Site bupivacaine PF (MARCAINE PF) 0.25 % injection Intra-articular, ONCE, 1 dose, On Sun08/05/19 at 1115 $ Admin. by Other Provider 08/05/2019 10:59 AM CDT 5 mL Other see comments iopamidol (ISOVUE M 200) 41 % contrast Intraspinal, CONTRAST ONCE, Starting on Sun08/05/19 at 1053, Until Sun08/06/19 at 0117, Used for myelograms $ Given - Contrast 08/05/2019 10:59 AM CDT 1 mL lidocaine (XYLOCAINE MPF) 1 % injection Intra-articular, ONCE, 1 dose, On Sun08/05/19 at 1115 $ Admin. by Other Provider 08/05/2019 10:59 AM CDT 5 mg Other see comments methylPREDNISolone acetate (DEPO-Medrol) injection 80 mg 80 mg, Intra-articular, ONCE, 1 dose, On Sun08/05/19 at 1115 $ Admin. by Other Provider 08/05/2019 10:59 AM CDT 80 mg Other see comments documented in this encounter Care Teams Dispatcher Refinery Relationship Specialty Start Date End Date Tomas Hyman MD [address] [facility] [address] [place] [address] PCP - General Family Medicine 09/05/18 Isidro Heredia MD Rheumatology 02/09/11 documented as of this encounter
--- OUTSIDE RECORDS SUMMARY | 2024-05-03 04:07 | XMS_ITS | Encounter Summary ---
Author Organization [facility] Address [address] [facility] [place] [address] Care Team Providers Care Suggestion Clerk Name Role Phone Isidro Heredia MD Unavailable [phone] Reason for Visit * Treatment (Routine) - Closed Specialty Diagnoses / Procedures Referred By Contac t Referred To Contact Infusion Therapy Nurse Diagnoses Rheumatoid arthritis without rheumatoid factor, multiple sites (HCC) Procedures [place] INFLIXIMAB INJECTION Isidro Heredia MD [address] [place] [address] [address] Referral ID Status Reason Start Date Expiration Date Visits Re quested Visits Authorized [id number] Closed 05/13/2018 04/29/2019 1 12 Encounter Details Date Type Department Care Team (Late st Contact Info) Description 05/16/2018 1:30 PM LADLE LINER - 05/16/2018 11:59 PM LADLE LINER Hospital Encounter [facility] Medical [facility] - Rheumatology [address] [place] [address] Isidro Heredia MD [address] [place] [address] Discharge Disposition: Home or Self [...] Sign Reading Time Taken Comments Blood Pressure 137/69 05/16/2018 2:45 PM LADLE LINER Pulse 66 05/16/2018 2:45 PM LADLE LINER Temperature 36.9 ??C (98.4 ??F) 05/16/2018 1:49 PM CS T Respiratory Rate 18 05/16/2018 2:45 PM LADLE LINER Oxygen Saturation - - Inhaled Oxygen Concentration - - Weight 105.7 kg (233 lb) 05/16/2018 1:49 PM LADLE LINER Height - - Body Mass Index 33.43 01/11/2016 3:12 PM CDT documented in this encounter Discharge Instructions * Discharge Instructions* Jody Sahu, RN - 05/16/2018 1:53 PM LADLE LINER OR Rheumatology Post Infusion instructions You have [...] rash or breathing problems please call your [facility] Rheumatology physician for further instructions. While most problems that occur around the time of an infusion are very mild and not dangerous, they should not be ignored. Sunday through Sunday 9-5 call the office at [phone] After hours or on the weekend call the exchange at [phone] If you have had lab work done [...] you and are glad you have chosen [facility] as your provider. Jody Sahu RN E LINER documented in this encounter Medications at Time [...] 1 (one) tablet by mouth once daily Magnesium Citrate 100 MG TABS Take 1 (one) tablet by mouth every other day Multiple Vitamin (MULTI-VITAMIN PO) Take 1 Tab by mouth once daily Multiple Vitamins-Minerals (OCUVITE ADULT 50+ PO) Take 1 tablet by mouth every other day ZYRTEC 10 MG TABS Take 1 (one) [...] once daily 90 Tab 3 07/19/2015 04/14/2019 carvedilol (COREG) 12.5 MG tablet TAKE 1 [...] for Pain Dx: 714.0 RA 120 tablet 05/16/2018 07/11/2018 pantoprazole EC (PROTONIX) 40 MG tablet Take 1 tablet by mouth once daily 90 tablet 3 11/21/2017 01/08/2019 potassium - sodium phosphates (PHOS-NAK) 280-160-250 MG powder Take 1 packet by mouth 3 times daily with meals 07/11/2018 prednisoLONE acetate (PRED FORTE) 1 % ophthalmic [...] Progress Notes * Jody Sahu RN - 05/16/2018 2:02 PM CST JOSE Chalino Deng [id number] 05/16/2018 Diagnosis: Rheumatoid arthritis without rheumatoid factor, multiple sites [M06.09]. Pt denies symptoms of infection or antibiotic use, no open wounds, or recent surgery, or plans for surgery in the next couple of weeks. Pt is aware that we use the 0-10 pain scale to assess discomfort. 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 front desk worker pt signs consent for treatment for this infusion. BP 134/75 Pulse 68 Temp 98.4 ??F Resp 18 Wt 105.7 kg (233 lb) BMI 33.43 kg/m2 @ MEDICATIONS FOR CURRENT ENCOUNTER: ?? CONTINUOUS MEDICATIONS: ?? inFLIXimab (REMICADE) 300 mg in 0.9% NaCl 250 mL infusion, Intravenous, Continuous ?? Number of 24 gauge 3/4 inch placed in Left antecubital ?? 1 attempt(s). Patient monitored throughout procedure. Tolerated well? Yes Next treatment? TBD at Doctor's visit today Jody Sahu RN E LINER documented in this encounter Plan of Treatment Upcoming Encounters Date Type Department Care Team (Late st Contact Info) Description 06/03/2024 1:00 PM LADLE LINER Appointment [facility] - Rheumatology [address] [place] [address] [phone] 06/03/2024 2:00 PM LADLE LINER Office Visit [facility] - Rheumatology [address] [place] [address] [phone] Gloria Smith MD [address] [place] [phone] documented as of this encounter Visit [...] 10-250 mL/hr, Intravenous, CONTINUOUS, Starting on Gabriela 05/16/18 at 1415, Until Gabriela 05/16/18 at 1614, Refrigerate. Use with in-line filter. Infuse over [...] Use with in-line filter. $ New Bag/Syringe 05/16/2018 2:08 PM LADLE LINER 300 mg 40 mL/hr documented in this encounter Care Teams Suggestion Clerk Relationship Specialty Start Date End Date Isidro Heredia MD Rheumatology 02/09/11 documented as of this encounter
--- OUTSIDE RECORDS SUMMARY | 2024-05-03 04:07 | XMS_ITS | Encounter Summary ---
Author Organization [facility] Address [address] [facility] [place] [address] Care Team Providers Care Vp Global Name Role Phone Isidro Heredia MD Unavailable [phone] Tomas Hyman MD Primary Care Provider [phone] Reason for Visit * Reason Onset Date Comments MEDICATION REFILL 07/13/2019 Encounter Details Date Type Department Care Team (Late Contact Info) Description 07/13/2019 Refill [facility] Medical [facility] - Rheumatology [address] [place] [address] [phone] Isidro Heredia MD [address] [place] [address] MEDICATION REFILL Social History Tobacco Use Types [...] * Telephone Encounter - Ella Peters - 07/14/2019 9:19 AM CDT No future appt Carrie:04/18/19 documented in this encounter Plan of Treatment Upcoming Encounters Date Type Department Care Team (Late Contact Info) Description 06/03/2024 1:00 PM DISABILITY ATTORNEY Appointment [facility] - Rheumatology [address] [place] [address] [phone] 06/03/2024 2:00 PM DISABILITY ATTORNEY Office Visit [facility] - Rheumatology [address] [place] [address] [phone] Gloria Smith MD [address] [place] [phone] documented as of this encounter Visit Diagnoses Not on filedocumented in this encounter Care Teams Vp Global Relationship Specialty Start Date End Date Tomas Hyman MD [address] [facility] [address] [place] [address] PCP - General Family Medicine 09/05/18 Isidro Heredia MD Rheumatology 02/09/11 documented as of this encounter
--- OUTSIDE RECORDS SUMMARY | 2024-05-03 04:07 | XMS_ITS | Encounter Summary ---
Author Organization [facility] Address [address] [facility] [place] [address] Care Team Providers Care Production Sorter Name Role Phone Isidro Heredia MD Unavailable [phone] Tomas Hyman MD Primary Care Provider [phone] Reason for Visit * Treatment (Routine) - Closed Specialty Diagnoses / Procedures Referred By Lawrence t Referred To Contact Infusion Therapy Nurse Diagnoses Rheumatoid arthritis without rheumatoid factor, multiple sites (HCC) Procedures [place] INFLIXIMAB INJECTION Isidro Heredia MD [address] [place] [address] [address] Referral ID Status Reason Start Date Expiration Date Visits Re quested Visits Authorized [id number] Closed 05/13/2018 04/29/2019 1 12 Encounter Details Date Type Department Care Team (Late st Contact Info) Description 04/18/2019 11:45 AM MDS MANAGER - 04/18/2019 1:32 PM MDS MANAGER Hospital Encounter [facility] Medical [facility] - Rheumatology [address] [place] [address] Gloria Smith MD [address] [place] [phone] Discharge Disposition: Home or Self Care [...] Sign Reading Time Taken Comments Blood Pressure 138/80 04/18/2019 12:12 PM MDS MANAGER Pulse 71 04/18/2019 12:12 PM MDS MANAGER Temperature 37.1 ??C (98.8 ??F) 04/18/2019 12:[address] Respiratory Rate 17 04/18/2019 12:12 PM MDS MANAGER Oxygen Saturation - - Inhaled Oxygen Concentration - - Weight 107.5 kg (237 lb) 04/18/2019 12:12 PM MDS MANAGER Height - - Body Mass Index 34.01 09/05/2018 10:54 AM CDT documented in this encounter Discharge Instructions * Discharge Instructions* Jody Sahu RN - 04/18/2019 12:[address] Rheumatology Post Infusion instructions You have received [...] rash or breathing problems please call your [facility] Rheumatology physician for further instructions. While most problems that occur around the time of an infusion are very mild and not dangerous, they should not be ignored. Sunday through Sunday 9-5 call the office at [phone] After hours or on the weekend call the exchange at [phone] If you have had lab work done [...] Hospital as your provider. Jody Sahu RN MANAGER documented in this encounter Medications at Time of Discharge Medication Sig Dispensed Refills Start Date End Date atorvastatin (LIPITOR) 40 MG tablet Take 1 (one) tablet by mouth at bedtime amzbolbzhjy-kzri-uxn ysorb, PF, 0.5-1-0.5 % SOLN Instill 1 [...] Progress Notes * Jody Sahu, RN - 04/18/2019 12:26 PM CST JOSE Allred Deng [id number] 04/18/2019 Diagnosis: Rheumatoid arthritis without rheumatoid factor, multiple sites [M06.09]. Pt denies symptoms of infection or antibiotic use, no open wounds, or recent surgery, or plans for surgery in the next couple of weeks. Pt is aware that we use the 0-10 pain scale to assess discomfort. 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 hotel front desk agent pt signs consent for treatment for this infusion. BP 138/80 Pulse 71 Temp 98.8 ??F Resp 17 Wt 107.5 kg (237 lb) BMI 34.01 kg/m2 @ MEDICATIONS FOR CURRENT ENCOUNTER: ?? CONTINUOUS MEDICATIONS: ?? inFLIXimab (REMICADE) 400 mg in 0.9% NaCl 250 mL infusion, Intravenous, Continuous ?? Number of 24 gauge 3/4 inch placed in Right antecubital ?? 1 attempt(s). Patient monitored throughout procedure. Tolerated well? Yes Next treatment? 6 weeks Jody Sahu RN MANAGER documented in this encounter Plan of Treatment Upcoming Encounters Date Type Department Care Team (Late st Contact Info) Description 06/03/2024 1:00 PM MDS MANAGER Appointment [facility] - Rheumatology [address] [place] [address] 06/03/2024 2:00 PM MDS MANAGER Office Visit [facility] - Rheumatology [address] [place] [address] Gloria Smith MD [address] [place] [phone] documented as of this encounter Visit [...] at 10-250 mL/hr, Intravenous, CONTINUOUS, Starting on Sun04/18/19 at 1230, Until 04/19/19 at 0117, Refrigerate. Use with in-line filter., Infuse over a minimum of 2 hours. Start infusion rate at 10 ml/hr and slowly increase infusion rate by doubling rate every 15 minutes. After 1 hour, increase rate to 150 ml/hr for 30 minutes, then increase rate to 250 ml/hr until infusion complete, unless physician orders a different rate. Refrigerate. Use with in-line filter. $ New Bag/Syringe 04/18/2019 12:27 PM MDS MANAGER 400 mg 135 mL/hr documented in this encounter Care Teams Production Sorter Relationship Specialty Start Date End Date Tomas Hyman MD [address] [facility] [address] [place] [address] PCP - General Family Medicine 09/05/18 Isidro Heredia MD Rheumatology 02/09/11 documented as of this encounter
--- OUTSIDE RECORDS SUMMARY | 2024-05-03 04:07 | XMS_ITS | Encounter Summary ---
Author Organization [facility] Address [address] [place] [address] Care Team Providers Care Blintze Roller Name Role Phone Isidro Heredia MD Unavailable [phone] Tomas Hyman MD Primary Care Provider [phone] Reason for Visit * Reason Onset Date Comments MEDICATION REFILL 10/24/2018 Encounter Details Date Type Department Care Team (Late Contact Info) Description 10/24/2018 Refill [facility] - Rheumatology [address] [place] [address] Isidro Heredia MD [address] [place] [address] MEDICATION REFILL Social History Tobacco Use [...] Contact Info) Description 06/03/2024 1:00 PM USER INTERFACE DESIGNER Appointment [facility] - Rheumatology [address] [place] [address] 06/03/2024 2:00 PM USER INTERFACE DESIGNER Office Visit [facility] - Rheumatology [address] [place] [address] Gloria Smith MD [address] [place] [phone] documented as of this encounter Visit Diagnoses Not on filedocumented in this encounter Care Teams Blintze Roller Relationship Specialty Start Date End Date Tomas Hyman MD [address] [place] [address] PCP - General Family Medicine 09/05/18 Isidro Heredia MD Rheumatology 02/09/11 documented as of this encounter
--- OUTSIDE RECORDS SUMMARY | 2024-05-03 04:07 | XMS_ITS | Encounter Summary ---
Author Organization [facility] Address [address] [place] [address] Care Team Providers Care Derrick Boat Runner Name Role Phone Isidro Heredia MD Unavailable [phone] Tomas Hyman MD Primary Care Provider [phone] Encounter Details Date Type Department Care Team (Latest Contact Info) Description 07/14/2019 Travel Social History Tobacco Use Types Packs/Day [...] st Contact Info) Description 06/03/2024 1:00 PM COMMODITY MANAGER Appointment [facility] - Rheumatology [address] [place] [address] 06/03/2024 2:00 PM COMMODITY MANAGER Office Visit [facility] - Rheumatology [address] [place] [address] Gloria Smith MD [address] [place] [phone] documented as of this encounter Visit Diagnoses Not on filedocumented in this encounter Care Teams Derrick Boat Runner Relationship Specialty Start Date End Date Tomas Hyman MD [address] [place] [address] PCP - General Family Medicine 09/05/18 Isidro Heredia MD Rheumatology 02/09/11 documented as of this encounter
--- OUTSIDE RECORDS SUMMARY | 2024-05-03 04:07 | XMS_ITS | Encounter Summary ---
Author Organization [facility] Address [address] [facility] [place] [address] Care Team Providers Care Traffic Signal Supervisor Maintenance Name Role Phone sIidro Heredia MD Unavailable [phone] Tomas Hyman MD Primary Care Provider [phone] Encounter Details Date Type Department Care Team (Latest Contact Info) Description 2018 12:45 PM CDT - 2018 2:02 PM CDT Hospital Encounter [facility] [address] [place], [place] [id number] [place] [address] [place] [address] Discharge Disposition: Home or Self Care Social [...] on file documented as of this encounter Discharge Instructions * Patient Instructions* Desiree Mckinney RN - 2018 2:02 PM CDT [facility] Pain Discharge Instructions Selective Epidural [...] headache, or any other problems, please call [phone] or after hours callDr. Mirza at [phone] and tell them your physician's name. The exchange will alert the physician technology adoption manager. If sedation is given: No sedation given. For Your Next Visit: No additional instructions. Other Instructions: May remove band-aid in 12 Hours. Return in 1 week for TFE #3. documented in this encounter Medications at Time of Discharge Medication Sig Dispensed Refills Start Date End Date atorvastatin (LIPITOR) 40 MG tablet Take 1 (one) tablet by mouth at bedtime [id number] ysorb, PF, 0.5-1-0.5 % SOLN Instill 1 [...] Progress Notes * Alejandro Mirza MD - 2018 2:14 PM CDT History and physical completed on 09-30-18. Was reviewed today and no changes noted. documented in this encounter Plan of Treatment Upcoming Encounters Date Type Department Care Team (Late st Contact Info) Description 06/03/2024 1:00 PM FEED HANDLER Appointment [facility] - Rheumatology [address] [place] [phone] 06/03/2024 2:00 PM FEED HANDLER Office Visit [facility] - Rheumatology [address] [place] [address] Gloria Smith MD [address] [place] [phone] documented as of this encounter Visit Diagnoses Not on filedocumented in this encounter Care Teams Traffic Signal Supervisor Maintenance Relationship Specialty Start Date End Date Tomas Hyman MD [address] [place] [address] PCP - General Family Medicine 09/05/18 Isidro Heredia MD Rheumatology 02/09/11 documented as of this encounter
--- OUTSIDE RECORDS SUMMARY | 2024-05-03 04:07 | XMS_ITS | Encounter Summary ---
Author Organization [facility] Address [address] [place] [address] Care Team Providers Care Tableau Developer Name Role Phone Isidro Heredia MD Unavailable [phone] Tomas Hyman MD Primary Care Provider [phone] Encounter Details Date Type Department Care Team (Late Contact Info) Description 03/03/2019 Orders Only [facility] - Rheumatology [address] [place] [address] Gloria Smith MD [facility] [place] [address] Social History Tobacco Use Types [...] (Late Contact Info) Description 06/03/2024 1:00 PM BELT AND LINK SHOP SUPERVISOR Appointment [facility] - Rheumatology [address] [place] [address] 06/03/2024 2:00 PM BELT AND LINK SHOP SUPERVISOR Office Visit [facility] - Rheumatology [address] [place] [address] Gloria Smith MD [facility] [place] [place] [address] documented as of this encounter Visit Diagnoses Not on filedocumented in this encounter Care Teams Tableau Developer Relationship Specialty Start Date End Date Tomas Hyman MD [address] [place] [address] PCP - General Family Medicine 09/05/18 Isidro Heredia MD Rheumatology 02/09/11 documented as of this encounter
--- OUTSIDE RECORDS SUMMARY | 2024-05-03 04:07 | XMS_ITS | Encounter Summary ---
Author Organization [facility] Address [address] [place] [address] Care Team Providers Care Varnishing Machine Operator Name Role Phone Isidro Heredia MD Unavailable [phone] Tomas Hyman MD Primary Care Provider [phone] Encounter Details Date Type Department Care Team (Late Contact Info) Description 01/19/2019 Orders Only [facility] - Rheumatology [address] [place] [address] [facility] [place] [address] Social History Tobacco Use Types [...] (Late Contact Info) Description 06/03/2024 1:00 PM ANIMAL PATHOLOGIST Appointment [facility] - Rheumatology [address] [place] [address] 06/03/2024 2:00 PM ANIMAL PATHOLOGIST Office Visit [facility] - Rheumatology [address] [place] [address] Gloria Smith MD [facility] [place] [address] documented as of this encounter Visit Diagnoses Not on filedocumented in this encounter Care Teams Varnishing Machine Operator Relationship Specialty Start Date End Date Tomas Hyman MD [address] [place] [address] PCP - General Family Medicine 09/05/18 Isidro Heredia MD Rheumatology 02/09/11 documented as of this encounter
--- OUTSIDE RECORDS SUMMARY | 2024-05-03 04:07 | XMS_ITS | Encounter Summary ---
Author Organization [facility] Address [address] [facility] [place] [address] Care Team Providers Care Government Affairs Specialist Name Role Phone Isidro Heredia MD Unavailable [phone] Encounter Details Date Type Department Care Team (Late Contact Info) Description 05/13/2018 Orders Only [facility] - Rheumatology [address] [place] [address] Isidro Heredia MD [address] [place] [address] Rheumatoid arthritis of multiple sites with negative [...] as of this encounter Progress Notes * Lesa Pennington - 07/15/2018 4:10 PM CDT mychart sent documented in this encounter Plan of Treatment Upcoming Encounters Date Type Department Care Team (Late Contact Info) Description 06/03/2024 1:00 PM INDEPENDENT JEWELER Appointment [facility] - Rheumatology [address] [place] [address] 06/03/2024 2:00 PM INDEPENDENT JEWELER Office Visit [facility] - Rheumatology [address] [place] [address] Gloria Smith MD [address] [place] [address] [place] [phone] documented as of this encounter Procedures Procedure Name Priority Date/Time Associated Diagnosis Comments ERYTHROCYTE SEDIMENTATION RATE Routine 07/11/2018 9:30 AM CDT Rheumatoid arthritis of multiple sites with negative rheumatoid factor (HCC) CBC W AUTO DIFFERENTIAL Routine 07/11/2018 9:30 AM CDT Rheumatoid arthritis 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 factor (HCC) COMPREHENSIVE METABOLIC PANEL Routine 07/11/2018 9:30 AM CDT Rheumatoid arthritis of multiple sites with negative rheumatoid factor (HCC) documented in this encounter Results * ERYTHROCYTE SEDIMENTATION RATE (07/11/2018 9:30 AM CDT) Erythrocyte Sedimentation Rate Westergren 14 0 - 30 mm/hr [facility] INSURANCE BILL Blood BLOOD SPECIMEN / Unknown 07/11/2018 9:30 AM CDT 07/11/2018 Narrative Resulting Agency Comment [facility] [address] [facility] ??[facility] [phone] Isidro Heredia MD LAB - HEMATOLOGY OR DERABLES [facility] INSURANCE BILL [address] [place] [address] * (ABNORMAL) COMPREHENSIVE METABOLIC PANEL (07/11/2018 9:30 AM CDT) Glucose 130(H) 65 - 99 mg/dL [facility] INSURANCE BILL BUN 15 6 - 24 mg/dL [facility] INSURANCE BILL Creatinine 1.13 0.76 - 1.27 mg/dL [facility] INSURANCE BILL eGFR by MDRD 73 >59 mL/min/1.7 3 [facility] INSURANCE BILL eGFR by MDRD 84 >59 mL/min/1.7 3 [facility] INSURANCE BILL BUN/Creatinine Ratio 13 9 - 20 [facility] INSURANCE BILL Sodium 138 134 - 144 mmol/L [facility] INSURANCE BILL Potassium 4.6 3.5 - 5.2 mmol/L [facility] INSURANCE BILL Chloride 101 96 - 106 mmol/L [facility] INSURANCE BILL CO2 21 20 - 29 mmol/L [facility] INSURANCE BILL Calcium 9.2 8.7 - 10.2 mg/dL [facility] INSURANCE BILL Protein Total 6.5 6.0 - 8.5 g/dL [facility] INSURANCE BILL Albumin 4.2 3.5 - 5.5 g/dL [facility] INSURANCE BILL Globulin Total 2.3 1.5 - 4.5 g/dL [facility] INSURANCE BILL Albumin/Globulin Ratio 1.8 1.2 - 2.2 [facility] INSURANCE BILL Bilirubin Total 0.3 0.0 - 1.2 mg/dL [facility] INSURANCE BILL Alkaline Phosphatase 52 39 - 117 IU/L [facility] INSURANCE BILL AST 24 0 - 40 IU/L [facility] INSURANCE BILL ALT 19 0 - 44 IU/L [facility] INSURANCE BILL Blood BLOOD SPECIMEN / Unknown 07/11/2018 9:30 AM CDT 07/11/2018 Narrative Resulting Agency Comment [facility] [address] ??[facility] [phone] Isidro Heredia MD LAB - CHEMISTRY ORD ERABLES [facility] INSURANCE BILL [address] [place] [address] * (ABNORMAL) CBC WITH DIFFERENTIAL (07/11/2018 9:30 AM CDT) WBC 7.5 3.4 - 10.8 x10E3/uL [facility] INSURANCE BILL RBC 3.92(L) 4.14 - 5.80 x10E6/uL [facility] INSURANCE BILL Hemoglobin 11.6(L) 13.0 - 17.7 g/dL [facility] INSURANCE BILL Hematocrit 35.5(L) 37.5 - 51.0 % [facility] INSURANCE BILL MCV 91 79 - 97 fL [facility] INSURANCE BILL MCH 29.6 26.6 - 33.0 pg [facility] INSURANCE BILL MCHC 32.7 31.5 - 35.7 g/dL [facility] INSURANCE BILL RDW 14.3 12.3 - 15.4 % [facility] INSURANCE BILL Platelet Count 192 150 - 379 x10E3/uL [facility] INSURANCE BILL Granulocytes % 56 Not Estab. % [facility] INSURANCE BILL Lymphocytes % 34 Not Estab. % [facility] INSURANCE BILL Monocytes % 6 Not Estab. % [facility] INSURANCE BILL Eosinophils % 3 Not Estab. % [facility] INSURANCE BILL Basophils % 1 Not Estab. % [facility] INSURANCE BILL Immature Cells NOT NEEDED [facility] INSURANCE BILL Comment:Ancillary determined the test is not needed Granulocytes Absolute 4.2 1.4 - 7.0 x10E3/uL [...] not needed Blood BLOOD SPECIMEN / Unknown 07/11/2018 9:30 AM CDT 07/11/2018 Narrative Resulting Agency Comment [facility] [address] ??[facility] [id number] Isidro Heredia MD LAB - HEMATOLOGY OR DERABLES [facility] INSURANCE BILL [address] [place] [address] documented in this encounter Visit Diagnoses Diagnosis Rheumatoid arthritis of multiple sites with negative rheumatoid factor (HCC)- Primary documented in this encounter Care Teams Government Affairs Specialist Relationship Specialty Start Date End Date Isidro Heredia MD Rheumatology 02/09/11 documented as of this encounter
--- OUTSIDE RECORDS SUMMARY | 2024-05-03 04:07 | XMS_ITS | Encounter Summary ---
Author Organization [facility] Address [address] [place] [address] Care Team Providers Care Medical Apparatus Model Maker Name Role Phone Isidro Heredia MD Unavailable [phone] Tomas Hyman MD Primary Care Provider [phone] Reason for Visit * Treatment (Routine) - Closed Specialty Diagnoses / Procedures Referred By Lawrence shah Referred To Contact Infusion Therapy Nurse Diagnoses Rheumatoid arthritis without rheumatoid factor, multiple sites (HCC) Procedures [place] INFLIXIMAB INJECTION Isidro Heredia MD [address] [place] [address] [address] Referral ID Status Reason Start Date Expiration Date Visits Re quested Visits Authorized [id number] Closed 02/28/2018 04/29/2018 1 6 Encounter Details Date Type Department Care Team (Late st Contact Info) Description 03/27/2018 9:53 AM PROCESS ENGINEER - 03/27/2018 11:59 PM PROCESS ENGINEER Hospital Encounter [facility] - Rheumatology [address] [place] [address] Isidro Heredia MD [address] [place] [address] Discharge Disposition: Home or Self [...] Sign Reading Time Taken Comments Blood Pressure 152/68 03/27/2018 1:00 PM PROCESS ENGINEER Pulse 76 03/27/2018 1:00 PM PROCESS ENGINEER Temperature 36.6 ??C (97.9 ??F) 03/27/2018 10:[address] Respiratory Rate 18 03/27/2018 1:00 PM PROCESS ENGINEER Oxygen Saturation - - Inhaled Oxygen Concentration - - Weight 104.3 kg (230 lb) 03/27/2018 10:11 AM PROCESS ENGINEER Height - - Body Mass Index 33 01/11/2016 3:12 PM CDT documented in this encounter Discharge Instructions * Discharge Instructions* Jody Sahu RN - 03/27/2018 10:25 AM PROCESS ENGINEER [place] Rheumatology Post Infusion instructions You have received [...] through Sunday 9-5 call the office at [phone] After hours or on the weekend call the exchange at [phone] If you have had lab work done [...] Hospital as your provider. Jody Sahu RN ESS ENGINEER documented in this encounter Medications at Time [...] 11/21/2017 11/10/2019 gabapentin (NEURONTIN) 300 MG capsule 1 capsule 2 times daily 180 capsule 1 11/21/2017 05/16/2018 InFLIXimab (REMICADE IV) 600 mg by Intravenous [...] for Pain Dx: 714.0 RA 120 tablet 03/07/2018 05/16/2018 pantoprazole EC (PROTONIX) 40 MG tablet Take [...] Progress Notes * Jody Sahu RN - 03/27/2018 10:27 AM CST INFUSIONS Chalino Deng [id number] 03/27/2018 Diagnosis: Rheumatoid arthritis without rheumatoid factor, multiple sites [M06.09]. Pt denies symptoms of infection or antibiotic use, no open wounds, or recent surgery, or plans for surgery in the next couple of weeks. Pt is aware that we use the 0-10 pain scale to assess discomfort. 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 front desk auxiliary pt signs consent for treatment for this infusion. BP 147/74 Pulse 76 Temp 97.9 ??F Resp 18 Wt 104.3 kg (230 lb) BMI 33 kg/m2 @ MEDICATIONS FOR CURRENT ENCOUNTER: ?? CONTINUOUS MEDICATIONS: ?? inFLIXimab (REMICADE) 300 mg in 0.9% NaCl 250 mL infusion, Intravenous, Continuous ?? Number of 245 gauge 3/4 inch placed in Right antecubital ?? 1 attempt(s). Patient monitored throughout procedure. Tolerated well? Yes Next treatment? 4 weeks This is the patient's second loading dose. 11:30 Pt C/O feeling flushed, accompanied by a back spasm. Infusion rate decreased from 135cc to 40cc. Pt's vitals 109/[address] Heredia notified. Pt reports that he is feeling better. Will proceed with infusion and titrate up slowly. Pt completed the infusion at 1305 without any other signs of hypersensitivity. Jody Sahu RN ESS ENGINEER documented in this encounter Plan of Treatment Upcoming Encounters Date Type Department Care Team (Late st Contact Info) Description 06/03/2024 1:00 PM PROCESS ENGINEER Appointment [facility] - Rheumatology [address] [place] [address] 06/03/2024 2:00 PM PROCESS ENGINEER Office Visit [facility] - Rheumatology [address] [place] [address] Gloria Smith MD [address] [place] [phone] documented as of this encounter Visit Diagnoses Diagnosis Rheumatoid arthritis of multiple sites with negative rheumatoid factor (HCC) documented in this encounter Administered Medications Inactive Administered Medications - up to 3 most recent administrations Medication Order MAR Action Action Date Dose Rate Site inFLIXimab (REMICADE) 300 mg in 0.9% NaCl 250 mL infusion 300 mg, at 10-250 mL/hr, Intravenous, CONTINUOUS, Starting on Sun03/27/18 at 1030, Until Gabriela 03/28/18 at 0124, Infuse over a minimum of 2 hours. [...] a final concentration of 0.4-4mg/ml. Stable 6hrs RT, Refrigerate. Use with in-line filter. $ New Bag/Syringe 03/27/2018 10:20 AM PROCESS ENGINEER 300 mg 135 mL/hr documented in this encounter Care Teams Medical Apparatus Model Maker Relationship Specialty Start Date End Date Tomas Hyman MD [address] [place] [address] PCP - General Family Medicine 12/31/13 05/09/18 Isidro Heredia MD Rheumatology 02/09/11 documented as of this encounter
--- OUTSIDE RECORDS SUMMARY | 2024-05-03 04:07 | XMS_ITS | Encounter Summary ---
Author Organization [facility] Address [address] [facility] [place] [address] Care Team Providers Care Pie Icer Machine Name Role Phone Isidro Heredia MD Unavailable [phone] Tomas Hyman MD Primary Care Provider [phone] Encounter Details Date Type Department Care Team (Late st Contact Info) Description 01/24/[address] [facility] Medical [facility] - Rheumatology [address] [place] [address] Gloria Smith MD [address] [place] [phone] Rheumatoid arthritis of multiple sites with [...] Progress Notes * Gloria Smith MD - 03/08/2019 10:53 AM CST ESR and CMP wnl. Cr 1.25, stable. Please let patient know that his lab tests are normal. ANICAL SPECIALIST * Ella Peters - 01/24/2019 3:23 PM CDT Patient was here today and is requesting orders for labs. documented in this encounter Plan of Treatment Upcoming Encounters Date Type Department Care Team (Late st Contact Info) Description 06/03/2024 1:00 PM MECHANICAL SPECIALIST Appointment [facility] - Rheumatology [address] [place] [address] 06/03/2024 2:00 PM MECHANICAL SPECIALIST Office Visit 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) CBC W AUTO DIFFERENTIAL Routine 03/06/2019 11:34 AM MECHANICAL SPECIALIST Rheumatoid arthritis of multiple sites with negative rheumatoid factor (HCC) COMPREHENSIVE METABOLIC PANEL Routine 03/06/2019 11:34 AM MECHANICAL SPECIALIST Rheumatoid arthritis 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 [place] [id number] Gloria Smith MD LAB - CHEMISTRY MARII ARAUJO [facility] INSURANCE BILL [address] [place] [address] * ERYTHROCYTE SEDIMENTATION RATE (03/06/2019 11:34 AM MECHANICAL SPECIALIST) Erythrocyte Sedimentation Rate Westergren 6 0 - 20 MM/HR [facility] INSURANCE BILL Blood BLOOD SPECIMEN / Unknown 03/06/2019 11:34 AM MECHANICAL SPECIALIST 03/06/2019 Narrative Resulting Agency Comment Lab Testing performed at: [facility] [address] [address] ?? [facility] [id number] Gloria Smith MD LAB - HEMATOLOGY ORD ERABLES [facility] INSURANCE BILL [address] [place] [address] * (ABNORMAL) COMPREHENSIVE METABOLIC PANEL (03/06/2019 11:34 AM MECHANICAL SPECIALIST) Glucose 81 70 - 105 mg/dL [facility] INSURANCE BILL BUN 16 8.4 - 25.7 mg/dL [facility] INSURANCE BILL Creatinine 1.25 0.72 - 1.25 mg/dL [facility] INSURANCE BILL eGFR by MDRD 60(L) >60 mL/min/1.7 3m2 [facility] INSURANCE BILL eGFR by MDRD >60 >60 mL/min/1.7 3m2 [facility] INSURANCE BILL Sodium 139 136 - 145 mmol/L [facility] INSURANCE BILL Potassium 4.3 3.5 - 4.7 mmol/L [facility] INSURANCE BILL Chloride 103 98 - 107 mmol/L [facility] INSURANCE BILL CO2 28 23 - 31 mmol/L [facility] INSURANCE BILL Calcium 9.3 8.4 - 10.4 mg/dL [facility] INSURANCE BILL Protein Total 6.9 6.4 - 8.3 gm/dL [facility] INSURANCE BILL Albumin 4.3 3.5 - 5.2 gm/dL [facility] INSURANCE BILL Bilirubin Total 0.4 0.2 - 1.2 mg/dL [facility] INSURANCE BILL Alkaline Phosphatase 56 40 - 150 U/L [facility] INSURANCE BILL AST 22 5 - 34 U/L [facility] INSURANCE BILL ALT 23 0 - 61 U/L [facility] INSURANCE BILL Blood BLOOD SPECIMEN / Unknown 03/06/2019 11:34 AM MECHANICAL SPECIALIST 03/06/2019 Narrative Resulting Agency Comment Lab Testing performed at: [facility] [id number] [place], [place] [address] ?? [place] [id number] Gloria Smith MD LAB - CHEMISTRY MARII ARAUJO [facility] INSURANCE BILL [address] [place] [address] * (ABNORMAL) CBC WITH DIFFERENTIAL (03/06/2019 11:34 AM MECHANICAL SPECIALIST) WBC 9.4 4.4 - 10.7 x10E9/L [facility] INSURANCE BILL RBC 4.18 3.80 - 5.40 x10E12/L [facility] INSURANCE BILL Hemoglobin 12.6 12.0 - 17.6 gm/dL [facility] INSURANCE BILL Hematocrit 41.7 35.2 - 51.7 % [facility] INSURANCE BILL MCV 99.8(H) 80.7 - 98.3 fl [facility] INSURANCE BILL MCH 30.1 26.7 - 34.0 pg [facility] INSURANCE BILL MCHC 30.2(L) 30.8 - 35.9 gm/dL [facility] INSURANCE BILL RDW 13.9 12.1 - 14.9 % [facility] INSURANCE BILL Platelet Count 194 153 - 416 x10E9/L [facility] INSURANCE BILL Comment:MPV FL BLOOD ([facility]) 11.0 fl 9.4-12.9 Granulocytes % 64.9 44.0 - 73.0 % [facility] INSURANCE BILL Lymphocytes % 25.6 20.0 - 43.0 % [facility] INSURANCE BILL Monocytes % 6.4 5.0 - 13.0 % [facility] INSURANCE BILL Eosinophils % 2.2 0.0 - 6.0 % [facility] INSURANCE BILL Basophils % 0.5 0.0 - 2.0 % [facility] INSURANCE BILL Granulocytes Absolute 6.12 2.01 - 7.14 x10E9/L [facility] INSURANCE BILL Lymphocytes Absolute 2.42 1.07 - 3.94 x10E9/L [facility] INSURANCE BILL Monocytes Absolute 0.60 0.26 - 1.07 x10E9/L [facility] INSURANCE BILL Eosinophils Absolute 0.21 0 - 0.47 x10E9/L [facility] INSURANCE BILL Basophils Absolute 0.05 0 - 0.08 x10E9/L [facility] INSURANCE BILL Immature Granulocytes 0.4 0 - 1 % [facility] INSURANCE BILL Immature Granulocytes Absolute 0.04 0.00 - 0.06 x10E9/L [facility] INSURANCE BILL nRBC 0 /100 WBC [facility] INSURANCE BILL Blood BLOOD SPECIMEN / Unknown 03/06/2019 11:34 AM MECHANICAL SPECIALIST 03/06/2019 Narrative Resulting Agency Comment Lab Testing performed at: [facility] [address] [address] ?? 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
--- OUTSIDE RECORDS SUMMARY | 2024-05-03 04:07 | XMS_ITS | Encounter Summary ---
Author Organization [facility] Address [address] [facility] [place] [address] Care Team Providers Care Bulldozer Mechanic Name Role Phone Isidro Heredia MD Unavailable [phone] Tomas Hyman MD Primary Care Provider [phone] Encounter Details Date Type Department Care Team (Latest Contact Info) Description 10/28/2018 11:53 AM CDT - 10/28/2018 11:54 AM T Hospital Encounter [facility] [address] [place] [address] [place] [address] [place] [address] Discharge Disposition: Home or Self Care Social [...] 1 (one) tablet by mouth at bedtime gakdprzvcys-mbkc-xez ysorb, PF, 0.5-1-0.5 % SOLN Instill 1 [...] Progress Notes * Alejandro Mirza MD - 10/28/2018 12:23 PM CDT History and physical completed on 09-30-18. Was reviewed today and no changes noted. documented in this encounter Plan of Treatment Upcoming Encounters Date Type Department Care Team (Late st Contact Info) Description 06/03/2024 1:00 PM PRODUCTION REPAIRER Appointment [facility] - Rheumatology [address] [place] [address] 06/03/2024 2:00 PM PRODUCTION REPAIRER Office Visit [facility] - Rheumatology [address] [place] [address] Gloria Smith MD [address] [place] [phone] documented as of this encounter Visit Diagnoses Not on filedocumented in this encounter Care Teams Bulldozer Mechanic Relationship Specialty Start Date End Date Tomas Hyman MD [address] [facility] [address] [place] [address] PCP - General Family Medicine 09/05/18 Isidro Heredia MD Rheumatology 02/09/11 documented as of this encounter
--- OUTSIDE RECORDS SUMMARY | 2024-05-03 04:07 | XMS_ITS | Encounter Summary ---
Author Organization [facility] Address [address] [facility] [place] [address] Care Team Providers Care Assembled Wood Products Repairer Name Role Phone Isidro Heredia MD Unavailable [phone] Reason for Visit * Reason Comments Follow-up Encounter Details Date Type Department Care Team (Late st Contact Info) Description 05/16/2018 3:30 PM VOLUNTEER SERVICES SPECIALIST Office Visit [facility] - Rheumatology [address] [place] [address] [phone] Isidro Heredia MD [address] [place] [id number] Rheumatoid arthritis of multiple sites with negative rheumatoid factor (HCC) (Primary Dx); Chronic right-sided low back pain with right-sided sciatica; Abnormal LFTs; Chronic pain syndrome Social History Tobacco Use [...] Sign Reading Time Taken Comments Blood Pressure 143/75 05/16/2018 3:57 PM VOLUNTEER SERVICES SPECIALIST Pulse 68 05/16/2018 3:57 PM VOLUNTEER SERVICES SPECIALIST Temperature - - Respiratory Rate - - Oxygen Saturation - - Inhaled Oxygen Concentration - - Weight 105.7 kg (233 lb) 05/16/2018 3:57 PM VOLUNTEER SERVICES SPECIALIST Height - - Body Mass Index 33.43 01/11/2016 3:12 PM CDT documented in this encounter Progress Notes * Isidro Heredia MD - 05/16/2018 5:13 PM CST Subjective: Chalino Deng 57 y.o. male is here for Chief Complaint Patient presents with ??? Follow-up Subjective: Chalino Deng 57 y.o. male is here for Chief Complaint Patient presents with ??? Follow-up HPI: See below Pain Level 7/10 right Shoulder hands knees Am stiffness 1 hr Global 5/10 Fatigue yes Medication Side Effects none BP Readings from Last 2 Encounters: 05/16/18 143/75 05/16/18 137/69 Wt Readings from Last 2 Encounters: 05/16/18 105.7 kg (233 lb) 05/16/18 105.7 kg (233 lb) Temp Readings from Last 2 Encounters: 05/16/18 98.4 ??F (36.9 ??C) 03/27/18 97.9 ??F (36.6 ??C) Pulse Readings from Last 2 Encounters: 05/16/18 68 05/16/18 66 Current Outpatient Prescriptions on File Prior to [...] 40 mg by mouth at bedtime ??? carvedilol (COREG) 12.5 MG tablet TAKE 1 TABLET TWICE A DAY WITH MORNING AND EVENING MEALS (NEED TO START GETTING FROM PRIMARY CARE PHYSICIAN) 180 tablet 2 ??? ferrous sulfate 325 (65 FE) MG tablet Take 325 mg by mouth once daily ??? gabapentin (NEURONTIN) 300 MG capsule 1 capsule 2 times daily 180 capsule 1 ??? Ulalukbignl-Gfduiqcdo-Ruv C-Mn (GLUCOSAMINE CHONDR 1500 COMPLX PO) Take 1 Tab by mouth once daily ??? hydroCHLOROthiazide (HYDRODIURIL) 25 MG tablet Take 25 mg by mouth once daily ??? InFLIXimab (REMICADE IV) 300 mg by Intravenous route as directed Every 8 weeks ??? KRILL OIL PO Take 500 mg by mouth once daily ??? Magnesium Citrate 100 MG TABS Take [...] 2 times daily 180 tablet 2 ??? oxyCODONE-acetaminophen (PERCOCET) 5-325 MG tablet Take 1 tablet by mouth every 6 hours as needed for Pain Dx: 714.0 RA 120 tablet 0 ??? pantoprazole EC (PROTONIX) 40 MG tablet Take 1 tablet by mouth once daily 90 tablet 3 ??? potassium - sodium phosphates (PHOS-NAK) 280-160-250 MG powder Take 1 packet by mouth 3 times daily with meals ??? predniSONE (DELTASONE) 10 MG tablet TAKE 1 TABLET TWICE A DAY (Patient taking differently: 5 mgtwice daily) 180 tablet 1 ??? REFRESH PLUS 0.5 % ophthalmic solution Instill 1 Drop into both eyes every 3 hours as needed ??? ZYRTEC 10 MG TABS Take 10 mg by mouth once daily. Seasonal (nov. Current Facility-Administered Medications on File Prior to Visit Medication Dose Route Frequency Provider Last Rate Last Dose ??? [] inFLIXimab (REMICADE) 300 mg in 0.9% NaCl 250 mL infusion 300 mg Intravenous Continuous Isidro Heredia MD Stopped at 05/16/18 1635 Patient Active Problem List: Rheumatoid arthritis of [...] lungs Objective: General Appearance Physical Exam: BP 143/75 Pulse 68 Wt 105.7 kg (233 lb) BMI 33.43 kg/m2 Head: perrla, eyes no irritation, vision and hearing intact, no oral ulcers, tongue normal, throat clear Neck:supple, no bruits, adenopathy Chest: clear, no rales, rhonchi or wheezes. Heart nsr. No S3,S4, or murmurs Abdomen:soft, no masses or tenderness, no organomegaly Genitalia, Groin, Buttocks: Back: no abnormal curvature, tenderness, or muscle spasm Extremities: No edema, cyanosis, or rash RUE: 8 /TJ,2/SJ, 0/muscle tenderness or weakness LUE: 8/TJ, 2/SJ, 0/muscle tenderness or weakness RLE: 1/TJ, 1/SJ, 0/muscle tenderness or weakness knees LLE: 1/TJ, 1/SJ, 0/muscle tenderness or weakness Painful abduction Right shoulder tendor Right triceps tendon Assessment: Encounter Diagnoses Name Primary? Rheumatoid arthritis of multiple sites with negative rheumatoid factor Yes ??? Chronic right-sided low back pain with right-sided sciatica ??? Abnormal LFTs ??? Chronic pain syndrome poorly Controled ra chronic pain And And lbp same meds Plan: Plan No orders of the defined types were placed in this encounter. Follow up in office in 8 weeks HPI: Back on remicade after tx For prostatitis had Cataract surgery Then diverticulitis In Jan And Actemra dced . On Percocet For chronic pain Plan: Plan No orders of the defined types were placed in this encounter. Under sterile condition, 2 cc's of tac with 1 cc2% lidocaine were injected in the right shoulder Triceps Tendon . 0 cc's of synovial fluid were aspirated. Patient tolerated procedure well without complications. Follow up in office in 8 weeks NTEER SERVICES SPECIALIST documented in this encounter Plan of Treatment Upcoming Encounters Date Type Department Care Team (Late st Contact Info) Description 06/03/2024 1:00 PM VOLUNTEER SERVICES SPECIALIST Appointment [facility] - Rheumatology [address] [place] [address] [phone] 06/03/2024 2:00 PM VOLUNTEER SERVICES SPECIALIST Office Visit [facility] - Rheumatology [address] [place] [address] Gloria Smith MD [address] [place] [phone] documented as of this encounter Visit Diagnoses Diagnosis Rheumatoid arthritis of multiple sites with negative rheumatoid factor (HCC)- Primary Chronic right-sided low back pain with right-sided sciatica Abnormal LFTs Other abnormal blood chemistry Chronic pain syndrome documented in this encounter Administered Medications Inactive Administered Medications - up to 3 most recent administrations Medication Order MAR Action Action Date Dose Rate Site lidocaine hcl (PF) (XYLOCAINE MPF) 2 % injection Intra-articular, ONCE, 1 dose, On Gabriela 05/16/18 at 1800 $ Given 05/16/2018 5:34 PM VOLUNTEER SERVICES SPECIALIST Right Shoulder triamcinolone acetonide (KENALOG-40) injection 80 mg 80 mg, Intra-articular, ONCE, 1 dose, On Gabriela 05/16/18 at 1800, Shake well before using. $ Given 05/16/2018 5:34 PM VOLUNTEER SERVICES SPECIALIST 80 mg Right Shoulder documented in this encounter Care Teams Assembled Wood Products Repairer Relationship Specialty Start Date End Date Isidro Heredia MD Rheumatology 02/09/11 documented as of this encounter
--- OUTSIDE RECORDS SUMMARY | 2024-05-03 04:07 | XMS_ITS | Encounter Summary ---
Author Organization [facility] Address [address] [facility] [place] [address] Care Team Providers Care Child Protective Investigator Name Role Phone Isidro Heredia MD Unavailable [phone] Reason for Visit * Reason Comments Arthritis follow up Encounter Details Date Type Department Care Team (Late st Contact Info) Description 07/11/2018 10:15 AM CDT Office Visit [facility] - Rheumatology [address] [place] [address] [phone] Isidro Heredia MD [address] [place] [phone] Abnormal LFTs (Primary Dx); Chronic right-sided low back pain with right-sided sciatica; Rheumatoid arthritis of multiple sites with negative [...] Time Taken Comments Blood Pressure 148/80 07/11/2018 10:31 AM CDT Pulse 74 07/11/2018 10:31 AM CDT Temperature - - Respiratory Rate - - Oxygen Saturation - - Inhaled Oxygen Concentration - - Weight 112.5 kg (248 lb) 07/11/2018 10:31 AM CDT Height - - Body Mass Index 35.58 01/11/2016 3:12 PM CDT documented in this encounter Progress Notes * Isidro Heredia MD - 07/11/2018 11:09 AM CDT , Subjective: Chalino Deng 57 year old male is here for Chief Complaint Patient presents with ??? Arthritis follow up HPI: On mtx remicade naprosyn For ra and Percocet For Chronic pain Was in hosp with Urosepsis Then Detached Retina Pain Level 6/10 Hands Knees and All Over Am stiffness 1 hr Global 5/10 Fatigue yes Medication Side Effects none BP Readings from Last 2 Encounters: 07/11/18 148/80 07/11/18 148/80 Wt Readings from Last 2 Encounters: 07/11/18 112.5 kg (248 lb) 07/11/18 112.5 kg (248 lb) Temp Readings from Last 2 Encounters: 07/11/18 98.7 ??F (37.1 ??C) 05/16/18 98.4 ??F (36.9 ??C) Pulse Readings from Last 2 Encounters: 07/11/18 74 07/11/18 74 Current Outpatient Prescriptions on File Prior to [...] 2 times daily 180 capsule 3 ??? Pqfjwsbdliv-Fwrucgzda-Skx C-Mn (GLUCOSAMINE CHONDR 1500 COMPLX PO) Take [...] tablet TAKE 6 TABLETS EVERY 7 DAYS (Patient not taking: Reported on 07/11/2018) 72 tablet 2 ??? Multiple Vitamin (MULTI-VITAMIN [...] mg by mouth 2 times daily ??? prednisoLONE acetate (PRED FORTE) 1 % ophthalmic suspension 1 drop by Ophthalmic route 2 times daily ??? predniSONE (DELTASONE) 10 [...] Frequency Provider Last Rate Last Dose ??? inFLIXimab (REMICADE) 300 mg in 0.9% NaCl 250 mL infusion 300 mg Intravenous Continuous Isidro Heredia MD 40 mL/hr at 07/11/1852 300 mg at 07/11/18 09 Patient Active Problem List: Rheumatoid arthritis of [...] sneezing, cough, eye irritation Systems reviewed genl Heart lungs Objective: General Appearance Physical Exam: BP 148/80 Pulse 74 Wt 112.5 kg (248 lb) BMI 35.58 kg/m2 droopy Left Eye lid Head: perrla, eyes no irritation, vision and hearing intact, no oral ulcers, tongue normal, throat clear Neck:supple, no bruits, adenopathy Chest: clear, no rales, rhonchi or wheezes. Heart nsr. No S3,S4, or murmurs Abdomen:soft, no masses or tenderness, no organomegaly Genitalia, Groin, Buttocks: Back: no abnormal curvature, He Has Tenderness Lower Back With muscle spasm Extremities: No edema, cyanosis, or rash RUE: 10/TJ, 6/SJ, 0/muscle tenderness or weakness LUE: 9 /TJ, 3/SJ, 0/muscle tenderness or weakness RLE: 1/TJ, 1/SJ, 0/muscle tenderness or weakness LLE: 1/TJ, 1/SJ, 0/muscle tenderness or weakness Assessment: Encounter Diagnoses Name Primary? Abnormal LFTs Yes ??? Chronic right-sided low back pain with right-sided sciatica ??? Rheumatoid arthritis of multiple sites with negative rheumatoid factor ??? Chronic pain syndrome poorly Controlled ra Chronic Pain Same meds Plan: Plan Orders Placed This Encounter ??? oxyCODONE-acetaminophen (PERCOCET) 5-325 MG tablet Sig: Take 1 tablet by mouth every 6 hours as needed for Pain Dx: 714.0 RA Dispense: 120 tablet Refill: 0 Follow up in office in 8 weeks documented in this encounter Plan of Treatment Upcoming Encounters Date Type Department Care Team (Late st Contact Info) Description 06/03/2024 1:00 PM GAS TURBINE MECHANIC Appointment [facility] Rheumatology [address] [place] [address] 06/03/2024 2:00 PM GAS TURBINE MECHANIC Office Visit [facility] - Rheumatology [address] [place] [address] [phone] Gloria Smith MD [address] [place] [phone] documented as of this encounter Visit Diagnoses Diagnosis Abnormal LFTs- Primary Other abnormal blood chemistry Chronic right-sided low back pain with right-sided sciatica Rheumatoid arthritis of multiple sites with negative rheumatoid factor (HCC) Chronic pain syndrome documented in this encounter Care Teams Child Protective Investigator Relationship Specialty Start Date End Date Isidro Heredia MD Rheumatology 02/09/11 documented as of this encounter
--- OUTSIDE RECORDS SUMMARY | 2024-05-03 04:07 | XMS_ITS | Encounter Summary ---
Author Organization [facility] Address [address] [facility] [place] [address] Care Team Providers Care Silver Lap Machine Tender Name Role Phone Isidro Heredia MD Unavailable Tomas Hyman MD Primary Care Provider [phone] Encounter Details Date Type Department Care Team (Latest Contact Info) Description 08/04/2019 Travel Social History Tobacco Use Types Packs/Day [...] st Contact Info) Description 06/03/2024 1:00 PM CHIEF SERVICE DISPATCHER Appointment [facility] - Rheumatology [address] [place] [address] 06/03/2024 2:00 PM CHIEF SERVICE DISPATCHER Office Visit [facility] - Rheumatology [address] [place] [address] Gloria Smith MD [address] [place] [phone] documented as of this encounter Visit Diagnoses Not on filedocumented in this encounter Care Teams Silver Lap Machine Tender Relationship Specialty Start Date End Date Tomas Hyman MD [address] [facility] [address] [place] [address] PCP - General Family Medicine 09/05/18 Isidro Heredia MD Rheumatology 02/09/11 documented as of this encounter
--- OUTSIDE RECORDS SUMMARY | 2024-05-03 04:07 | XMS_ITS | Encounter Summary ---
Author Organization [facility] Address [address] [facility] [place] [address] Care Team Providers Care Research Technologist Name Role Phone Isidro Heredia MD Unavailable [phone] Tomas Hyman MD Primary Care Provider [phone] Encounter Details Date Type Department Care Team (Late Contact Info) Description 10/24/2018 Orders Only [facility] - Rheumatology [address] [place] [address] Isidro Heredia MD [address] [place] [address] Social History Tobacco Use Types Packs/Day Years [...] (Late Contact Info) Description 06/03/2024 1:00 PM RECEIVING AND PROCESSING SUPERVISOR Appointment [facility] - Rheumatology [address] [place] [address] 06/03/2024 2:00 PM RECEIVING AND PROCESSING SUPERVISOR Office Visit [facility] - Rheumatology [address] [place] [address] Gloria Smith MD [address] [place] [phone] documented as of this encounter Procedures Procedure Name Priority Date/Time Associated Diagnosis Comments ERYTHROCYTE SEDIMENTATION RATE 10/24/2018 10:00 AM CDT COMPREHENSIVE METABOLIC PANEL 10/24/2018 10:00 AM CDT documented in this encounter Results * ERYTHROCYTE SEDIMENTATION RATE (10/24/2018 10:00 AM CDT) Erythrocyte Sedimentation Rate Westergren 8 0 - 30 mm/hr [facility] INSURANCE BILL 10/24/2018 10:0 0 AM CDT 10/24/2018 Narrative Resulting Agency Comment Lab Testing performed at: [facility] [address] ??[facility] [id number] Isidro Heredia MD LAB - HEMATOLOGY OR DERABLES [facility] INSURANCE BILL [address] [place] [address] * COMPREHENSIVE METABOLIC PANEL (10/24/2018 10:00 AM CDT) Glucose 95 65 - 99 mg/dL [facility] INSURANCE BILL BUN 14 6 - 24 mg/dL [facility] INSURANCE BILL Creatinine 1.17 0.76 - 1.27 mg/dL [facility] INSURANCE BILL eGFR by MDRD 69 >59 mL/min/1.7 3 [facility] INSURANCE BILL eGFR by MDRD 80 >59 mL/min/1.7 3 [facility] INSURANCE BILL BUN/Creatinine Ratio 12 9 - 20 [facility] INSURANCE BILL Sodium 142 134 - 144 mmol/L [facility] INSURANCE BILL Potassium 4.4 3.5 - 5.2 mmol/L [facility] INSURANCE BILL Chloride 104 96 - 106 mmol/L [facility] INSURANCE BILL CO2 23 20 - 29 mmol/L [facility] INSURANCE BILL Calcium 9.3 8.7 - 10.2 mg/dL [facility] INSURANCE BILL Protein Total 6.4 6.0 - 8.5 g/dL [facility] INSURANCE BILL Albumin 4.2 3.5 - 5.5 g/dL [facility] INSURANCE BILL Globulin Total 2.2 1.5 - 4.5 g/dL [facility] INSURANCE BILL Albumin/Globulin Ratio 1.9 1.2 - 2.2 [facility] INSURANCE BILL Bilirubin Total 0.4 0.0 - 1.2 mg/dL [facility] INSURANCE BILL Alkaline Phosphatase 54 39 - 117 IU/L [facility] INSURANCE BILL AST 25 0 - 40 IU/L [facility] INSURANCE BILL ALT 25 0 - 44 IU/L [facility] INSURANCE BILL 10/24/2018 10:0 0 AM CDT 10/24/2018 Narrative Resulting Agency Comment Lab Testing performed at: [facility] [address] [facility] ??[facility] [phone] Isidro Heredia MD LAB - CHEMISTRY ORD ERABLES [facility] INSURANCE BILL [address] [place] [address] documented in this encounter Visit Diagnoses Not on filedocumented in this encounter Care Teams Research Technologist Relationship Specialty Start Date End Date Tomas Hyman MD [address] [facility] [address] [place] [address] PCP - General Family Medicine 09/05/18 Isidro Heredia MD Rheumatology 02/09/11 documented as of this encounter
--- OUTSIDE RECORDS SUMMARY | 2024-05-03 04:07 | XMS_ITS | Encounter Summary ---
Author Organization [facility] Address [address] [facility] [place] [address] Care Team Providers Care Food Expeditor Name Role Phone Isidro Heredia MD Unavailable [phone] Tomas Hyman MD Primary Care Provider [phone] Encounter Details Date Type Department Care Team (Late Contact Info) Description 11/08/2018 Orders Only [facility] - Rheumatology [address] [place] [address] Isidro Heredia MD [address] [place] [address] Encounter for long-term (current) use of [...] (Late Contact Info) Description 06/03/2024 1:00 PM OCCUPATIONAL THERAPY TEACHER Appointment [facility] - Rheumatology [address] [place] [address] 06/03/2024 2:00 PM OCCUPATIONAL THERAPY TEACHER Office Visit [facility] Rheumatology [address] [place] [address] Gloria Smith MD [address] [place], [place] [address], [place] [address] documented as of this encounter Visit Diagnoses Diagnosis Encounter for long-term (current) use of medications Encounter for long-term (current) use of other medications documented in this encounter Care Teams Food Expeditor Relationship Specialty Start Date End Date Tomas Hyman MD [address] [facility] [address] [place] [address] PCP - General Family Medicine 09/05/18 Isidro Heredia MD Rheumatology 02/09/11 documented as of this encounter
--- OUTSIDE RECORDS SUMMARY | 2024-05-03 04:07 | XMS_ITS | Encounter Summary ---
Author Organization [facility] Address [address] [place] [address] Care Team Providers Care Production Pattern Maker Name Role Phone Isidro Heredia MD Unavailable [phone] Tomas Hyman MD Primary Care Provider [phone] Reason for Visit * Reason Comments Arthritis follow up Encounter Details Date Type Department Care Team (Late st Contact Info) Description 12/12/2018 10:45 AM CDT Office Visit [facility] - Rheumatology [address] [place] [address] Isidro Heredia MD [address] [place] [address] Abnormal LFTs (Primary Dx); Chronic pain syndrome; Rheumatoid arthritis of multiple sites with negative rheumatoid factor (HCC); Chronic right-sided low back pain with right-sided sciatica Social History Tobacco Use Types Packs/Day Years [...] Sign Reading Time Taken Comments Blood Pressure 114/76 12/12/2018 11:23 AM CDT Pulse 87 12/12/2018 11:23 AM CDT Temperature - - Respiratory Rate - - Oxygen Saturation - - Inhaled Oxygen Concentration - - Weight 111.8 kg (246 lb 6.4 oz) 019 11:23 AM CDT Height - - Body Mass Index 35.35 09/05/2018 10:54 AM CDT documented in this encounter Progress Notes * Isidro Heredia MD - 12/12/2018 11:45 AM CDT Subjective: Chalino Deng 58 year old male is here for Chief Complaint Patient presents with ??? Arthritis follow up HPI: On mtx remicade q 8 weeks Naprosyn For ra Shingles Drying up with acvyclovir On perocet For Chronic pain Pain Level 7/10 Hands Knees Neck Am stiffness 1 hr Global 7 /10 Fatigue yes Medication Side Effects none Sciatica Better after [address] phillips BP Readings from Last 2 Encounters: 12/12/18 114/76 10/28/18 134/79 Wt Readings from Last 2 Encounters: 12/12/18 111.8 kg (246 lb 6.4 oz) 10/24/18 114.3 kg (252 lb) Temp Readings from Last 2 Encounters: 10/24/18 98 ??F (36.7 ??C) 09/05/18 98.2 ??F (36.8 ??C) Pulse Readings from Last 2 Encounters: 12/12/18 87 10/28/18 86 Current Outpatient Medications on File Prior to Visit Medication Sig [...] 100 mg by mouth once daily ??? vctzkuleuuz-kfdu-fseyvawg, PF, (REFRESH OPTIVE ADVANCED PF) 0.5-1-0.5 % SOLN Instill 1 drop into both eyes 2 times daily ??? carvedilol (COREG) 12.5 MG tablet TAKE 1 TABLET TWICE A DAY WITH MORNING AND EVENING MEALS (NEED TO START GETTING FROM PRIMARY CARE PHYSICIAN) 180 tablet 2 ??? ferrous sulfate 325 (65 FE) MG tablet Take 325 mg by mouth once daily ??? gabapentin (NEURONTIN) 300 MG capsule Take 1 capsule by mouth 2 times daily 180 capsule 3 ??? Axqfbnaibvz-Mwwmlsvll-Esc C-Mn (GLUCOSAMINE CHONDR 1500 COMPLX PO) Take [...] with right-sided sciatica Triceps tendonitis Triceps tendonitis Social History Tobacco Use Smoking Status Never Smoker Smokeless Tobacco Never Used Social History Substance and Sexual Activity Alcohol Use No Social History Substance and Sexual Activity Drug Use Not on file Review of [...] lungs Objective: General Appearance Physical Exam: BP 114/76 Pulse 87 Wt 111.8 kg (246 lb 6.4 oz) BMI 35.35 kg/m?? Head: perrla, eyes no irritation, vision and hearing intact, no oral ulcers, tongue normal, throat clear Neck:supple, no bruits, adenopathy Chest: clear, no rales, rhonchi or wheezes. Heart nsr. No S3,S4, or murmurs Abdomen:soft, no masses or tenderness, no organomegaly Genitalia, Groin, Buttocks: Back: no abnormal curvature, tenderness, or muscle spasm Shingles mid back radiates to below right breast Extremities: No edema, cyanosis, or rash RUE: 8/TJ, 4/SJ, 0/muscle tenderness or weakness LUE: 8/TJ, 4/SJ, 0/muscle tenderness or weakness RLE: 0/TJ, 0/SJ, 0/muscle tenderness or weakness LLE: 0/TJ, 0/SJ, 0/muscle tenderness or weakness Assessment: Encounter Diagnoses Name Primary? Abnormal LFTs Yes ??? Chronic pain syndrome ??? Rheumatoid arthritis of multiple sites with negative rheumatoid factor ??? Chronic right-sided low back pain with right-sided sciatica poorly controlled ra and chronic Pain Same meds Plan: Plan Orders Placed This Encounter ??? oxyCODONE-acetaminophen (PERCOCET) 5-325 MG tablet Sig: Take 1 tablet by mouth every 6 hours as needed for Pain Dx: 714.0 RA Dispense: 120 tablet Refill: 0 Needs Labs today Follow up in office in 8 weeks documented in this encounter Plan of Treatment Upcoming Encounters Date Type Department Care Team (Late st Contact Info) Description 06/03/2024 1:00 PM BLOCKERS SKIVER Appointment [facility] - Rheumatology [address] [place] [address] [phone] 06/03/2024 2:00 PM BLOCKERS SKIVER Office Visit [facility] - Rheumatology [address] [place] [address] Gloria Smith MD [address] [place] [phone] documented as of this encounter Visit Diagnoses Diagnosis Abnormal LFTs- Primary Other abnormal blood chemistry Chronic pain syndrome Rheumatoid arthritis of multiple sites with negative rheumatoid factor (HCC) Chronic right-sided low back pain with right-sided sciatica documented in this encounter Care Teams Production Pattern Maker Relationship Specialty Start Date End Date Tomas Hyman MD [address] [facility] [address] [place] [address] PCP - General Family Medicine 09/05/18 Isidro Heredia MD Rheumatology 02/09/11 documented as of this encounter
--- OUTSIDE RECORDS SUMMARY | 2024-05-03 04:07 | XMS_ITS | Encounter Summary ---
Author Organization [facility] Address [address] [facility] [place] [address] Care Team Providers Care Producer Assistant Name Role Phone Isidro Heredia MD Unavailable [phone] Tomas Hyman MD Primary Care Provider [phone] Reason for Visit * Treatment (Routine) - Closed Specialty Diagnoses / Procedures Referred By Lawrence shah Referred To Contact Infusion Therapy Nurse Diagnoses Rheumatoid arthritis without rheumatoid factor, multiple sites (HCC) Procedures [place] INFLIXIMAB INJECTION Gloria Smith MD [address] [place] [address] [address] Referral ID Status Reason Start Date Expiration Date Visits Re quested Visits Authorized [id number] Closed 05/09/2019 04/29/2020 1 12 Encounter Details Date Type Department Care Team (Late st Contact Info) Description 07/18/2019 10:44 AM CDT - 07/18/2019 11:59 PM CDT Hospital Encounter [facility] - Rheumatology [address] [place] [address] Gloria Smith MD [facility] [place] [address] Discharge Disposition: Home or Self [...] Sign Reading Time Taken Comments Blood Pressure 129/77 07/18/2019 11:13 AM CDT Pulse 92 07/18/2019 11:13 AM CDT Temperature 36.6 ??C (97.8 ??F) 07/18/2019 11:13 AM C DT Respiratory Rate 18 07/18/2019 11:13 AM CDT Oxygen Saturation - - Inhaled Oxygen Concentration - - Weight 110.2 kg (243 lb) 07/18/2019 11:13 AM CDT Height - - Body Mass Index 34.87 09/05/2018 10:54 AM CDT documented in this encounter Discharge Instructions * Discharge Instructions* Jody Sahu RN - 07/18/2019 11:47 AM CDT [place] Rheumatology Post Infusion instructions You have received [...] Sunday through 01-02 call the office at [phone] After hours or on the weekend call the exchange at [phone] If you have had lab work done [...] you and are glad you have chosen [facility] as your provider. Jody Sahu RN documented in this encounter Medications at Time of Discharge Medication Sig Dispensed Refills Start Date End Date atorvastatin (LIPITOR) 40 MG tablet Take 1 (one) tablet by mouth at bedtime bpeeumzraaj-qzyt-ul lysorb, PF, 0.5-1-0.5 % SOLN Instill 1 [...] Progress Notes * Jody Sahu RN - 07/18/2019 11:00 AM CDT JOSE Deng [id number] 07/18/2019 Diagnosis: Rheumatoid arthritis without rheumatoid factor, multiple sites [M06.09]. Pt denies symptoms of infection or antibiotic use, no open wounds, or recent surgery, or plans for surgery in the next couple of weeks. Pt is aware that we use the 0-10 pain scale to assess discomfort. 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 front attendant pt signs consent for treatment for this infusion. BP 129/77 Pulse 92 Temp 97.8 ??F Resp 18 Wt 110.2 [...] st Contact Info) Description 06/03/2024 1:00 PM CONCESSION STAND ATTENDANT Appointment [facility] - Rheumatology [address] [place] [address] 06/03/2024 2:00 PM CONCESSION STAND ATTENDANT Office Visit [facility] - Rheumatology [address] [place] [address] Gloria Smith MD [address] [place] [phone] documented as of this encounter Visit Diagnoses Diagnosis Rheumatoid arthritis of multiple sites with negative rheumatoid factor (HCC)- Primary documented in this encounter Administered Medications Inactive Administered Medications - up to 3 most recent administrations Medication Order MAR Action Action Date Dose Rate Site inFLIXimab (REMICADE) 600 mg in 0.9% NaCl 250 mL infusion 600 mg, at 10-250 mL/hr, Intravenous, CONTINUOUS, Starting on 07/18/19 at 1130, Until 07/19/19 at 0118, Refrigerate. Use with in-line filter. Infuse over [...] Use with in-line filter. $ New Bag/Syringe 07/18/2019 11:19 AM CDT 600 mg 135 mL/hr documented in this encounter Care Teams Producer Assistant Relationship Specialty Start Date End Date Tomas Hyman MD [address] [place] [address] PCP - General Family Medicine 09/05/18 Isidro Heredia MD Rheumatology 02/09/11 documented as of this encounter
--- OUTSIDE RECORDS SUMMARY | 2024-05-03 04:08 | XMS_ITS | Encounter Summary ---
Author Organization [facility] Address [address] [facility] [place] [address] Care Team Providers Care Applications Systems Analyst Name Role Phone Isidro Heredia MD Unavailable [phone] Tomas Hyman MD Primary Care Provider [phone] Reason for Visit * Reason Comments Refill Request Encounter Details Date Type Department Care Team (Late Contact Info) Description 04/21/2017 Refill [facility] - Rheumatology [address] [place] [address] Isidro Heredia MD [address] [place] [address] Refill Request Social History Tobacco Use Types Packs/Day [...] (Late Contact Info) Description 06/03/2024 1:00 PM LOG BUNCHER Appointment [facility] - Rheumatology [address] [place] [address] 06/03/2024 2:00 PM LOG BUNCHER Office Visit [facility] Rheumatology [address] [place] [address] Gloria Smith MD [address] [place], [place] [address] [address] documented as of this encounter Visit Diagnoses Not on filedocumented in this encounter Care Teams Applications Systems Analyst Relationship Specialty Start Date End Date Tomas Hyman MD [address] [place] [address] PCP - General Family Medicine 12/31/13 05/09/18 Isidro Heredia MD Rheumatology 02/09/11 documented as of this encounter
--- OUTSIDE RECORDS SUMMARY | 2024-05-03 04:08 | XMS_ITS | Encounter Summary ---
Author Organization [facility] Address [address] [facility] [place] [address] Care Team Providers Care Visitor Services Information Assistant Name Role Phone Isidro Heredia MD Unavailable [phone] Tomas Hyman MD Primary Care Provider Reason for Visit * Reason Comments Refill Request Encounter Details Date Type Department Care Team (Late Contact Info) Description 03/19/2017 Refill [facility] - Rheumatology [address] [place] [address] Isidro Heredia MD [address] [place] [address] Refill Request Social History Tobacco Use [...] (Late Contact Info) Description 06/03/2024 1:00 PM BASE LOADER Appointment [facility] - Rheumatology [address] [place] [address] 06/03/2024 2:00 PM BASE LOADER Office Visit [facility] Rheumatology [address] [place] [address] Gloria Smith MD [address] [place], [place] [address], [place] [address] documented as of this encounter Visit Diagnoses Not on filedocumented in this encounter Care Teams Visitor Services Information Assistant Relationship Specialty Start Date End Date Tomas Hyman MD [address] [place] [address] PCP - General Family Medicine 12/31/13 05/09/18 Isidro Heredia MD Rheumatology 02/09/11 documented as of this encounter
--- OUTSIDE RECORDS SUMMARY | 2024-05-03 04:08 | XMS_ITS | Encounter Summary ---
Author Organization [facility] Address [address] [facility] [place] [address] Care Team Providers Care Tow Truck Dispatcher Name Role Phone Isidro Heredia MD Unavailable [phone] Tomas Hyman MD Primary Care Provider [phone] Reason for Visit * Treatment (Routine) - Closed Specialty Diagnoses / Procedures Referred By Lawrence shah Referred To Contact Infusion Therapy Nurse Diagnoses Rheumatoid arthritis without rheumatoid factor, multiple sites (HCC) Procedures [place] INJECTION TOCILIZUMAB 1 MG Isidro Heredia MD [address] [facility] [place] [place] [address] [address] Referral ID Status Reason Start Date Expiration Date Visits Re quested Visits Authorized [id number] Closed 08/07/2016 04/29/2017 1 12 Encounter Details Date Type Department Care Team (Late st Contact Info) Description 02/02/2017 11:40 AM CDT - 02/02/2017 11:59 PM CDT Hospital Encounter [facility] - Rheumatology [address] [place] [address] Isidro Heredia MD [address] [facility] [place] [address] Discharge Disposition: Home or Self [...] Sign Reading Time Taken Comments Blood Pressure 146/93 02/02/2017 12:03 PM CDT Pulse 96 02/02/2017 12:03 PM CDT Temperature 36.7 ??C (98 ??F) 02/02/2017 12:03 PM CDT Respiratory Rate 18 02/02/2017 12:03 PM CDT Oxygen Saturation - - Inhaled Oxygen Concentration - - Weight - - Height - - Body Mass Index - - documented in this encounter Discharge Instructions * Discharge Instructions* Jody Sahu RN - 02/02/2017 12:16 PM CDT [place] Rheumatology Post Infusion instructions You have received [...] rash or breathing problems please call your [facility] Rheumatology physician for further instructions. While most problems that occur around the time of an infusion are very mild and not dangerous, they should not be ignored. Sunday through Sunday 9-5 call the office at [phone] After hours or on the weekend call the exchange at [phone] If you have had lab work done [...] 1 (one) tablet by mouth at bedtime Glucosamine-Chondroit- Vit C-Mn (GLUCOSAMINE CHONDR 1500 COMPLX PO) Take 1 Tab by mouth once daily Magnesium Citrate 100 MG TABS Take 1 (one) tablet by mouth every other day Multiple Vitamin (MULTI-VITAMIN PO) Take 1 Tab by mouth once daily ZYRTEC 10 MG TABS Take 1 (one) tablet by mouth once daily Seasonal (nov alendronate (FOSAMAX) 70 MG tablet TAKE 1 TABLET EVERY 7 DAYS BEFORE A MEAL IN MORNING WITH FULL GLASS OF WATER ON AN EMPTY STOMACH AND REMAIN UPRIGHT FOR 30 MINUTES 12 Tab 2 08/09/2016 04/21/2017 aspirin EC (ECOTRIN) 81 MG tablet Take 1 Tab by mouth once daily 90 Tab 3 07/19/2015 04/14/2019 carvedilol (COREG) 12.5 MG tablet TAKE 1 TABLET TWICE A DAY WITH MORNING AND EVENING MEALS (NEED TO START GETTING FROM PRIMARY CARE PHYSICIAN) 120 Tab 09/19/2016 11/21/2017 gabapentin (NEURONTIN) 300 MG capsule 1 Cap 2 times daily 180 Cap 1 01/04/2017 11/21/2017 KRILL OIL PO Take 500 mg by mouth once daily 09/05/2018 metaxalone (SKELAXIN) 800 MG tablet TAKE 1 TABLET THREE TIMES A DAY 270 Tab 1 12/25/2016 05/13/2017 methotrexate 2.5 MG tablet TAKE 6 TABLETS EVERY 7 DAYS 72 Tab 2 11/15/2016 07/25/2017 Multiple Vitamins-Minerals (OCUVITE PO) Take 1 Tab by mouth once daily 10/24/2017 naproxen (NAPROSYN) 500 MG tablet 1 Tab 2 times daily 180 Tab 2 09/21/2016 06/19/2017 oxyCODONE-acetaminophe n (PERCOCET) 5-325 MG tablet Take 1 Tab by mouth every 6 hours as needed for Pain Dx: 714.0 RA 120 Tab 01/04/2017 03/08/2017 pantoprazole EC (PROTONIX) 40 MG tablet Take 1 Tab by mouth once daily 90 Tab 3 09/21/2016 10/24/2017 phentermine (ADIPEX-P) 37.5 MG capsule Take 37.5 mg by mouth once daily 03/08/2017 predniSONE (DELTASONE) 10 MG tablet TAKE 1 TABLET TWICE A DAY 180 Tab 12/19/2016 03/19/2017 REFRESH PLUS 0.5 % ophthalmic solution Instill 1 Drop into both eyes every 3 hours as needed 11/21/2016 09/05/2018 Tocilizumab (ACTEMRA IV) 800 mg by Intravenous route every 30 days 03/07/2018 topiramate (TOPAMAX) 50 MG tablet Take 50 mg by mouth once daily 10/24/2017 documented as of this encounter Progress Notes * Jody Sahu RN - 02/02/2017 12:40 PM CDT JOSE Deng [id number] 02/02/2017 Diagnosis: Rheumatoid arthritis without rheumatoid factor, multiple sites [M06.09]. Pt denies symptoms of infection or antibiotic use, no open wounds, or recent surgery, or plans for surgery in the next couple of weeks. Pt is aware that we use the 0-10 pain scale to assess discomfort. 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 front desk host pt signs consent for treatment for this infusion. BP 146/93 Pulse 96 Temp 98 ??F Resp 18 @ MEDICATIONS FOR CURRENT ENCOUNTER: ?? SCHEDULED MEDICATIONS: ?? Tocilizumab 800 mg in 0.9% NaCl 100 mL IVPB, Intravenous, Once ?? CONTINUOUS MEDICATIONS: PRN MEDICATIONS: ?? Number of 24 gauge 3/4 inch placed in Left antecubital ?? 1 attempt(s). Patient monitored throughout procedure. Tolerated well? Yes Next treatment? 4 weeks Jody Sahu RN documented in this encounter Plan of Treatment Upcoming Encounters Date Type Department Care Team (Late st Contact Info) Description 06/03/2024 1:00 PM MANAGER TRADING Appointment [facility] - Rheumatology [address] [place] [address] 06/03/2024 2:00 PM MANAGER TRADING Office Visit [facility] - Rheumatology [address] [place] [address] Gloria Smith MD [address] [place], [place] [address] [place] [id number] documented as of this encounter Visit Diagnoses Diagnosis Rheumatoid arthritis of multiple sites with negative rheumatoid factor (HCC) documented in this encounter Administered Medications Inactive Administered Medications - up to 3 most recent administrations Medication Order MAR Action Action Date Dose Rate Site Tocilizumab 800 mg in 0.9% NaCl 100 mL IVPB 800 mg, at 100 mL/hr, Intravenous, ONCE, 1 dose, On Sun02/02/17 at 1230, Stable 24hrs RT $ New Bag/Syringe 02/02/2017 12:30 PM CDT 800 mg 100 mL/hr documented in this encounter Care Teams Tow Truck Dispatcher Relationship Specialty Start Date End Date Tomas Hyman MD [address] [facility] [address] [place] [address] PCP - General Family Medicine 12/31/13 05/09/18 Isidro Heredia MD Rheumatology 02/09/11 documented as of this encounter
--- OUTSIDE RECORDS SUMMARY | 2024-05-03 04:08 | XMS_ITS | Encounter Summary ---
Author Organization [facility] Address [address] [facility] [address] Care Team Providers Care Skid Adzer Name Role Phone Isidro Heredia MD Unavailable [phone] Tomas Hyman MD Primary Care Provider [phone] Reason for Visit * Treatment (Routine) - Closed Specialty Diagnoses / Procedures Referred By Lawrence shah Referred To Contact Infusion Therapy Nurse Diagnoses Rheumatoid arthritis without rheumatoid factor, multiple sites (HCC) Procedures [place] INJECTION TOCILIZUMAB 1 MG Isidro Heredia MD [address] [facility] [place] [place] [address] [address] Referral ID Status Reason Start Date Expiration Date Visits Re quested Visits Authorized [id number] Closed 05/11/2017 04/29/2018 1 13 Encounter Details Date Type Department Care Team (Late st Contact Info) Description 08/01/2017 12:53 PM CDT - 08/01/2017 11:59 PM CDT Hospital Encounter [facility] - Rheumatology [address] [place] [address] Isidro Heredia MD [address] [place] [address] Discharge Disposition: Home or Self [...] Sign Reading Time Taken Comments Blood Pressure 156/89 08/01/2017 1:14 PM CDT Pulse 102 08/01/2017 1:14 PM CDT Temperature 37.1 ??C (98.8 ??F) 08/01/2017 1:14 PM CD T Respiratory Rate 18 08/01/2017 1:14 PM CDT Oxygen Saturation - - Inhaled Oxygen Concentration - - Weight 108 kg (238 lb) 08/01/2017 1:14 PM CDT Height - - Body Mass Index 34.15 01/11/2016 3:12 PM CDT documented in this encounter Discharge Instructions * Discharge Instructions* Jody Sahu RN - 08/01/2017 1:21 PM CDT [place] Rheumatology Post Infusion instructions You have received [...] rash or breathing problems please call your [facility] Rheumatology physician for further instructions. While most problems that occur around the time of an infusion are very mild and not dangerous, they should not be ignored. Sunday through 01-02 call the office at [phone] After hours or on the weekend call the exchange at [phone] If you have had lab work done [...] UPRIGHT FOR 30 MINUTES 12 tablet 2 04/26/2017 11/21/2017 aspirin EC (ECOTRIN) 81 MG tablet Take [...] 1 TABLET THREE TIMES A DAY 270 tablet 1 05/14/2017 10/24/2017 methotrexate 2.5 MG tablet TAKE 6 TABLETS EVERY 7 DAYS 72 tablet 2 07/25/2017 12/12/2018 Multiple Vitamins-Minerals (OCUVITE PO) Take 1 Tab by mouth once daily 10/24/2017 naproxen (NAPROSYN) 500 MG tablet TAKE 1 TABLET TWICE A DAY 180 tablet 2 06/19/2017 11/21/2017 oxyCODONE-acetaminoph en (PERCOCET) 5-325 MG tablet Take 1 tablet by mouth every 6 hours as needed for Pain Dx: 714.0 RA 120 tablet 08/01/2017 10/24/2017 pantoprazole EC (PROTONIX) 40 MG tablet Take 1 Tab by mouth once daily 90 Tab 3 09/21/2016 10/24/2017 predniSONE (DELTASONE) 10 MG tablet TAKE 1 [...] Progress Notes * Jody Sahu RN - 08/01/2017 1:39 PM CDT JOSE Chalino Deng [id number] 08/01/2017 Diagnosis: Rheumatoid arthritis without rheumatoid factor, multiple sites [M06.09]. Pt denies symptoms of infection or antibiotic use, no open wounds, or recent surgery, or plans for surgery in the next couple of weeks. Pt is aware that we use the 0-10 pain scale to assess discomfort. 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 lockstitch front maker pt signs consent for treatment for this infusion. BP 156/89 Pulse 102 Temp 98.8 ??F Resp 18 Wt 108 kg (238 lb) BMI 34.15 kg/m2 @ MEDICATIONS FOR CURRENT ENCOUNTER: ?? SCHEDULED MEDICATIONS: ?? tocilizumab (ACTEMRA) 800 mg in 0.9% NaCl 60 mL IVPB, Intravenous, Once ?? CONTINUOUS MEDICATIONS: PRN MEDICATIONS: ?? Number of 24 gauge 3/4 inch placed in Right antecubital ?? 1 attempt(s). Patient monitored throughout procedure. Tolerated well? Yes Next treatment? 4 araceli Sahu RN documented in this encounter Plan of Treatment Upcoming Encounters Date Type Department Care Team (Late st Contact Info) Description 06/03/2024 1:00 PM CONSTRUCTION PRODUCER Appointment [facility] - Rheumatology [address] [place] [phone] 06/03/2024 2:00 PM CONSTRUCTION PRODUCER Office Visit [facility] - Rheumatology [address] [place] [address] Gloria Smith MD [address] [place] [phone] documented as of this encounter Visit Diagnoses Diagnosis Rheumatoid arthritis of multiple sites with negative rheumatoid factor (HCC) documented in this encounter Administered Medications Inactive Administered Medications - up to 3 most recent administrations Medication Order MAR Action Action Date Dose Rate Site tocilizumab (ACTEMRA) 800 mg in 0.9% NaCl 60 mL IVPB 800 mg, Intravenous, ONCE, 1 dose, On Sun08/01/17 at 1330, Stable 24hrs RT $ New Bag/Syringe 08/01/2017 1:30 PM CDT 800 mg documented in this encounter Care Teams Skid Adzer Relationship Specialty Start Date End Date Tomas Hyman MD [address] [facility] [address] [place] [address] PCP - General Family Medicine 12/31/13 05/09/18 Isidro Heredia MD Rheumatology 02/09/11 documented as of this encounter
--- OUTSIDE RECORDS SUMMARY | 2024-05-03 04:08 | XMS_ITS | Encounter Summary ---
Author Organization [facility] Address [address] [place] [address] Care Team Providers Care Substation Designer Name Role Phone Isidro Heredia MD Unavailable [phone] Tomas Hyman MD Primary Care Provider [phone] Reason for Visit * Reason Onset Date Comments MEDICATION REFILL 12/19/2017 Encounter Details Date Type Department Care Team (Late Contact Info) Description 12/19/2017 Refill [facility] Medical [facility] - Rheumatology [address] [place] [address] [phone] Isidro Heredia MD [address] [place] [address] MEDICATION REFILL Social History Tobacco Use [...] * Telephone Encounter - Carey Loza - 12/19/2017 2:00 PM CDT Chalino is aware that is out of the office and may not be done till tomorrow documented in this encounter Plan of Treatment Upcoming Encounters Date Type Department Care Team (Late Contact Info) Description 06/03/2024 1:00 PM FORENSIC COMPUTER EXAMINER Appointment [facility] - Rheumatology [address] [place] [address] 06/03/2024 2:00 PM FORENSIC COMPUTER EXAMINER Office Visit [facility] - Rheumatology [address] [place] [address] Gloria Smith MD [address] [place] [phone] documented as of this encounter Visit Diagnoses Not on filedocumented in this encounter Care Teams Substation Designer Relationship Specialty Start Date End Date Tomas Hyman MD [address] [place] [address] PCP - General Family Medicine 12/31/13 05/09/18 Isidro Heredia MD Rheumatology 02/09/11 documented as of this encounter
--- OUTSIDE RECORDS SUMMARY | 2024-05-03 04:08 | XMS_ITS | Encounter Summary ---
Author Organization [facility] Address [address] [place] [address] Care Team Providers Care Wine Manager Name Role Phone Isidro Heredia MD Unavailable [phone] Tomas Hyman MD Primary Care Provider [phone] Encounter Details Date Type Department Care Team (Late st Contact Info) Description 01/22/2017 Orders Only [facility] Medical [facility] - Rheumatology [address] [place] [address] [phone] Isidro Heredia MD [address] [place] [address] Encounter for long-term (current) use of [...] as of this encounter Progress Notes * Yamileth Rodríguez MA - 02/12/2017 11:41 AM CDT Message sent via my chart regarding lab results * Isidro Heredia MD - 02/07/2017 7:39 AM CDT Mild anemia same hb 11.9 meron [id number] documented in this encounter Plan of Treatment Upcoming Encounters Date Type Department Care Team (Late st Contact Info) Description 06/03/2024 1:00 PM HORSES OR MULES TEAMSTER Appointment [facility] - Rheumatology [address] [place] [address] [phone] 06/03/2024 2:00 PM HORSES OR MULES TEAMSTER Office Visit [facility] - Rheumatology [address] [place] [address] Gloria Smith MD [address] [place] [phone] documented as of this encounter Procedures Procedure Name Priority Date/Time Associated Diagnosis Comments LIPID PROFILE W TCHOL/HDL Routine 02/02/2017 12:00 PM CDT Encounter for long-term (current) use of medications ERYTHROCYTE SEDIMENTATION RATE Routine 02/02/2017 12:00 PM CDT Encounter for long-term (current) use of medications CBC W AUTO DIFFERENTIAL Routine 02/02/2017 12:00 PM CDT Encounter for long-term (current) use of medications COMPREHENSIVE METABOLIC PANEL Routine 02/02/2017 12:00 PM CDT Encounter for long-term (current) use of medications documented in this encounter Results * (ABNORMAL) LIPID PROFILE W TCHOL/HDL (02/02/2017 12:00 PM CDT) Cholesterol 167 100 - 199 mg/dL [facility] INSURANCE BILL Triglycerides 378(H) 0 - 149 mg/dL [facility] INSURANCE BILL HDL Cholesterol 45 >39 mg/dL [facility] INSURANCE BILL VLDL Calculated 76(H) 5 - 40 mg/dL [facility] INSURANCE BILL LDL Calculated 46 0 - 99 mg/dL [facility] INSURANCE BILL Comment NOT NEEDED [facility] INSURANCE BILL Comment:Ancillary determined the test is not needed Cholesterol/HDL Ratio 3.7 0.0 - 5.0 ratio units [facility] INSURANCE BILL Comment: ? T. Chol/HDL Ratio ? Men ??Women ? 1/2 Avg.Risk ??3.4 ?3.3 ? Avg.Risk ??5.0 ?4.4 ?2X Avg.Risk ??9.6 ?7.1 ?3X Avg.Risk 23.4 ?? 11.0 Blood BLOOD SPECIMEN / Unknown 02/02/2017 12:00 PM CDT 02/02/2017 Narrative Resulting Agency Comment [facility] [address] ??[facility] [phone] Isidro Heredia MD LAB - CHEMISTRY ORD DONNIE [facility] INSURANCE BILL [address] [place] [address] * ERYTHROCYTE SEDIMENTATION RATE (02/02/2017 12:00 PM CDT) Erythrocyte Sedimentation Rate Westergren 6 0 - 30 mm/hr [facility] INSURANCE BILL Blood BLOOD SPECIMEN / Unknown 02/02/2017 12:00 PM CDT 02/02/2017 Narrative Resulting Agency Comment [facility] [address] ??[facility] [phone] Isidro Heredia MD LAB - HEMATOLOGY OR DERABLES [facility] INSURANCE BILL [address] [place] [address] * (ABNORMAL) COMPREHENSIVE METABOLIC PANEL (02/02/2017 12:00 PM CDT) Glucose 113(H) 65 - 99 mg/dL [facility] INSURANCE BILL BUN 17 6 - 24 mg/dL [facility] INSURANCE BILL Creatinine 0.81 0.76 - 1.27 mg/dL [facility] INSURANCE BILL eGFR by MDRD 101 >59 mL/min/1.7 3 [facility] INSURANCE BILL eGFR by MDRD 116 >59 mL/min/1.7 3 [facility] INSURANCE BILL BUN/Creatinine Ratio 21(H) 9 - 20 [facility] INSURANCE BILL Sodium 143 134 - 144 mmol/L [facility] INSURANCE BILL Potassium 4.1 3.5 - 5.2 mmol/L [facility] INSURANCE BILL Chloride 105 96 - 106 mmol/L [facility] INSURANCE BILL CO2 22 18 - 29 mmol/L [facility] INSURANCE BILL Calcium 8.8 8.7 - 10.2 mg/dL [facility] INSURANCE BILL Protein Total 5.9(L) 6.0 - 8.5 g/dL [facility] INSURANCE BILL Albumin 4.0 3.5 - 5.5 g/dL [facility] INSURANCE BILL Globulin Total 1.9 1.5 - 4.5 g/dL [facility] INSURANCE BILL Albumin/Globulin Ratio 2.1 1.2 - 2.2 [facility] INSURANCE BILL Bilirubin Total 0.2 0.0 - 1.2 mg/dL [facility] INSURANCE BILL Alkaline Phosphatase 45 39 - 117 IU/L [facility] INSURANCE BILL AST 22 0 - 40 IU/L [facility] INSURANCE BILL ALT 29 0 - 44 IU/L [facility] INSURANCE BILL Blood BLOOD SPECIMEN / Unknown 02/02/2017 12:00 PM CDT 02/02/2017 Narrative Resulting Agency Comment [facility] [address] ??[facility] [phone] Isidro Heredia MD LAB - CHEMISTRY ORD ERABLES [facility] INSURANCE BILL [address] [place] [address] * (ABNORMAL) CBC W AUTO DIFFERENTIAL (02/02/2017 12:00 PM CDT) WBC 7.0 3.4 - 10.8 x10E3/uL [facility] INSURANCE BILL RBC 3.86(L) 4.14 - 5.80 x10E6/uL [facility] INSURANCE BILL Hemoglobin 11.9(L) 12.6 - 17.7 g/dL [facility] INSURANCE BILL Hematocrit 37.0(L) 37.5 - 51.0 % [facility] INSURANCE BILL MCV 96 79 - 97 fL [facility] INSURANCE BILL MCH 30.8 26.6 - 33.0 pg [facility] INSURANCE BILL MCHC 32.2 31.5 - 35.7 g/dL [facility] INSURANCE BILL RDW 14.4 12.3 - 15.4 % [facility] INSURANCE BILL Platelet Count 156 150 - 379 x10E3/uL [facility] INSURANCE BILL Granulocytes % 59 Not Estab. % [facility] INSURANCE BILL Lymphocytes % 29 Not Estab. % [facility] INSURANCE BILL Monocytes % 9 Not Estab. % [facility] INSURANCE BILL Eosinophils % 2 Not Estab. % [facility] INSURANCE BILL Basophils % 1 Not Estab. % [facility] INSURANCE BILL Immature Cells NOT NEEDED [facility] INSURANCE BILL Comment:Ancillary determined the test is not needed Granulocytes Absolute 4.2 1.4 - 7.0 x10E3/uL [facility] INSURANCE BILL Lymphocytes Absolute 2.0 0.7 - 3.1 x10E3/uL [facility] INSURANCE BILL Monocytes Absolute 0.6 0.1 - 0.9 x10E3/uL [facility] INSURANCE BILL Eosinophils Absolute 0.1 0.0 - 0.4 x10E3/uL [facility] INSURANCE BILL [...] not needed Blood BLOOD SPECIMEN / Unknown 02/02/2017 12:00 PM CDT 02/02/2017 Narrative Resulting Agency Comment [facility] [address] [facility] ??[facility] [phone] Isidro Heredia MD LAB - HEMATOLOGY OR DERABLES [facility] INSURANCE BILL [address] [place] [address] documented in this encounter Visit Diagnoses Diagnosis Encounter for long-term (current) use of medications- Primary Encounter for long-term (current) use of other medications documented in this encounter Care Teams Wine Manager Relationship Specialty Start Date End Date Tomas Hyman MD [address] [facility] [address] [place] [address] PCP - General Family Medicine 12/31/13 05/09/18 Isidro Heredia MD Rheumatology 02/09/11 documented as of this encounter
--- OUTSIDE RECORDS SUMMARY | 2024-05-03 04:08 | XMS_ITS | Encounter Summary ---
Author Organization [facility] Address [address] [place] [address] Care Team Providers Care Furniture Manager Name Role Phone Isidro Heredia MD Unavailable [phone] Tomas Hyman MD Primary Care Provider [phone] Reason for Visit * Reason Comments Refill Request Encounter Details Date Type Department Care Team (Late Contact Info) Description 07/25/2017 Refill [facility] - Rheumatology [address] [place] [address] Isidro Heredia MD [address] [place] [address] Refill Request Social History Tobacco Use [...] (Late Contact Info) Description 06/03/2024 1:00 PM DIPPER FISH Appointment [facility] - Rheumatology [address] [place] [address] 06/03/2024 2:00 PM DIPPER FISH Office Visit [facility] Rheumatology [address] [place] [address] Gloria Smith MD [address] [place], [place] [address], [place] [address] documented as of this encounter Visit Diagnoses Not on filedocumented in this encounter Care Teams Furniture Manager Relationship Specialty Start Date End Date Tomas Hyman MD [address] [place] [address] PCP - General Family Medicine 12/31/13 05/09/18 Isidro Heredia MD Rheumatology 02/09/11 documented as of this encounter
--- OUTSIDE RECORDS SUMMARY | 2024-05-03 04:08 | XMS_ITS | Encounter Summary ---
Author Organization [facility] Address [address] [facility] [place] [address] Care Team Providers Care Instructor Physical Education Name Role Phone Isidro Heredia MD Unavailable [phone] Tomas Hyman MD Primary Care Provider [phone] Reason for Visit * Reason Comments Rheumatoid Arthritis General dizzy, headaches, ph legm, feels weak and run down Encounter Details Date Type Department Care Team (Late st Contact Info) Description 06/14/2017 1:30 PM SAUSAGE GRINDER Office Visit [facility] Medical [facility] - Rheumatology [address] [place] [address] Isidro Heredia MD [address] [place] [address] Rheumatoid arthritis of multiple sites with negative rheumatoid factor (HCC) (Primary Dx); Chronic pain syndrome Social History Tobacco Use [...] Sign Reading Time Taken Comments Blood Pressure 148/98 06/14/2017 1:36 PM SAUSAGE GRINDER Pulse 114 06/14/2017 1:36 PM SAUSAGE GRINDER Temperature - - Respiratory Rate - - Oxygen Saturation - - Inhaled Oxygen Concentration - - Weight 106.1 kg (234 lb) 06/14/2017 1:36 PM SAUSAGE GRINDER Height - - Body Mass Index 33.58 01/11/2016 3:12 PM CDT documented in this encounter Progress Notes * Isidro Heredia MD - 06/14/2017 1:47 PM CST Subjective: Chalino Deng 56 y.o. male is here for Chief Complaint Patient presents with ??? Rheumatoid Arthritis ??? General dizzy, headaches, phlegm, feels weak and run down HPI: Has not recovered from the flu Still achy sore throat shafer Lightheaded congestion dayquil helps On mtx actemra Neurontin, no recent epid Lumbar injection on percocet On pred 10 mg bid For chronicpain Pain Level 8/10 Hands shoulders Knees Am stiffness 2 hrs Global 9/10 Fatigue yes Medication Side Effects none BP Readings from Last 2 Encounters: 06/14/17 148/98 04/05/17 163/90 Wt Readings from Last 2 Encounters: 06/14/17 106.1 kg (234 lb) 04/05/17 113.4 kg (250 lb) Temp Readings from Last 2 Encounters: 04/05/17 99 ??F 03/08/17 98.1 ??F Pulse Readings from Last 2 Encounters: 06/14/17 (!) 114 04/05/17 70 Current Outpatient Prescriptions on File Prior to Visit Medication Sig Dispense Refill ??? hydroCHLOROthiazide (HYDRODIURIL) 25 MG tablet Take 25 mg by mouth once daily ??? metaxalone (SKELAXIN) 800 MG tablet TAKE 1 TABLET THREE TIMES A DAY 270 tablet 1 ??? alendronate (FOSAMAX) 70 MG tablet TAKE 1 TABLET EVERY 7 DAYS BEFORE A MEAL IN THE MORNING WITHFULL GLASS OF WATER ON AN EMPTY STOMACH AND REMAIN UPRIGHT FOR 30 MINUTES 12 tablet 2 ??? ferrous sulfate 325 (65 FE) MG tablet Take 325 mg by mouth once daily ??? oxyCODONE-acetaminophen (PERCOCET) 5-325 MG tablet Take 1 tablet by mouth every 6 hours as needed for Pain Dx: 714.0 RA 120 tablet 0 ??? predniSONE (DELTASONE) 10 MG tablet TAKE 1 TABLET TWICE A DAY 180 tablet 0 ??? REFRESH PLUS 0.5 % ophthalmic solution Instill 1 Drop into both eyes every 3 hours as needed ??? Tocilizumab (ACTEMRA IV) 800 mg by Intravenous route every 30 days ??? gabapentin (NEURONTIN) 300 MG capsule 1 Cap 2 times daily 180 Cap 1 ??? topiramate (TOPAMAX) 50 MG tablet Take 50 mg by mouth once daily ??? methotrexate 2.5 MG tablet TAKE 6 TABLETS EVERY 7 DAYS 72 Tab 2 ??? naproxen (NAPROSYN) 500 MG tablet 1 Tab 2 times daily 180 Tab 2 ??? pantoprazole EC (PROTONIX) 40 MG tablet Take 1 Tab by mouth once daily 90 Tab 3 ??? carvedilol (COREG) 12.5 MG tablet TAKE 1 TABLET TWICE A DAY WITH MORNING AND EVENING MEALS (NEED TO START GETTING FROM PRIMARY CARE PHYSICIAN) 120 Tab 0 ??? atorvastatin (LIPITOR) 40 MG tablet Take 40 mg by mouth at bedtime ??? KRILL OIL PO Take 500 mg by mouth once daily ??? aspirin EC (ECOTRIN) 81 MG tablet Take 1 Tab by mouth once daily 90 Tab 3 ??? Magnesium Citrate 100 MG TABS Take 1 Tab by mouth once daily ??? Multiple Vitamins-Minerals (OCUVITE PO) Take 1 Tab by mouth once daily ??? Multiple Vitamin (MULTI-VITAMIN PO) Take 1 Tab by mouth once daily ??? Ygdojxktllq-Kanfwzczq-Qks C-Mn (GLUCOSAMINE CHONDR 1500 COMPLX PO) Take 1 Tab by mouth once daily ??? ZYRTEC 10 MG TABS Take 10 mg by mouth once daily. Seasonal (nov. Current Facility-Administered Medications on File Prior to Visit Medication Dose Route Frequency Provider Last Rate Last Dose ??? Tocilizumab 800 mg in 0.9% NaCl 100 mL IVPB 800 mg Intravenous Once Isidro Heredia MD Patient Active Problem List Diagnosis ??? Rheumatoid arthritis of multiple sites with negative rheumatoid factor ??? GERD (gastroesophageal reflux disease) ??? Osteopenia ??? Anemia ??? Subacromial bursitis ??? Chronic pain syndrome ??? Pain medication agreement signed ??? Other and unspecified hyperlipidemia ??? Lumbar radiculopathy ??? Abnormal LFTs ??? Chronic right-sided low back pain with right-sided sciatica ??? Triceps tendonitis History Smoking Status ??? Never [...] No nocturia, dysuria, frequency, urgency, kidney stones. MS: NEURO: No headaches, seizures, dizziness, confusion, numbness, tingling HEME/LYMPH: No bruising or bleeding, swollen glands SKIN: No rash, itching, dry skin ENDO No Heat or cold intol, no hyper or hypoglycemia PSYCH: No memory loss, disorientation, confusion, mood changes, ALLERGY/IMMU No runny nose, tearing, sneezing, cough, eye irritation Systems reviewed genl Heart lungs Objective: General Appearance Physical Exam: BP 148/98 Pulse (!) 114 Wt 106.1 kg (234 lb) BMI 33.58 kg/m2 Head: perrla, eyes no irritation, vision and hearing intact, no oral ulcers, tongue normal, throat clear Neck:supple, no bruits, adenopathy Chest: clear, no rales, rhonchi or wheezes. Heart nsr. No S3,S4, or murmurs Abdomen:soft, no masses or tenderness, no organomegaly Genitalia, Groin, Buttocks: Back: no abnormal curvature, tenderness, or muscle spasm Extremities: No edema, cyanosis, or rash RUE: 9/TJ, 8/SJ, 0/muscle tenderness or weakness LUE: 9/TJ, 8/SJ, 0/muscle tenderness or weakness RLE: 1/TJ, 0/SJ, 0/muscle tenderness or weakness LLE: 1/TJ, 0/SJ, 0/muscle tenderness or weakness Assessment: Encounter Diagnoses Name Primary? Rheumatoid arthritis of multiple sites with negative rheumatoid factor Yes ??? Chronic pain syndrome poorly controlled Chronic Pain lbp and ra asame meds Resume actmera 2-3 weeks Plan: Plan No orders of the defined types were placed in this encounter. Follow up in office in 6 weeks AGE GRINDER documented in this encounter Plan of Treatment Upcoming Encounters Date Type Department Care Team (Late st Contact Info) Description 06/03/2024 1:00 PM SAUSAGE GRINDER Appointment [facility] - Rheumatology [address] [place] [address] 06/03/2024 2:00 PM SAUSAGE GRINDER Office Visit [facility] - Rheumatology [address] [place] [address] Gloria Smith MD [address] [place] [phone] documented as of this encounter Visit Diagnoses Diagnosis Rheumatoid arthritis of multiple sites with negative rheumatoid factor (HCC)- Primary Chronic pain syndrome documented in this encounter Care Teams Instructor Physical Education Relationship Specialty Start Date End Date Tomas Hyman MD [address] [place] [address] PCP - General Family Medicine 12/31/13 05/09/18 Isidro Heredia MD Rheumatology 02/09/11 documented as of this encounter
--- OUTSIDE RECORDS SUMMARY | 2024-05-03 04:08 | XMS_ITS | Encounter Summary ---
Author Organization [facility] Address [address] [facility] [place] [address] Care Team Providers Care Elevator Constructor Supervisor Name Role Phone Isidro Heredia MD Unavailable [phone] Tomas Hyman MD Primary Care Provider [phone] Encounter Details Date Type Department Care Team (Late st Contact Info) Description 08/01/2017 Orders Only [facility] - Rheumatology [address] [place] [address] Isidro Heredia MD [address] [place] [address] Social History Tobacco Use Types Packs/Day [...] (Late Contact Info) Description 06/03/2024 1:00 PM SOUNDSCRIBER MECHANIC Appointment [facility] - Rheumatology [address] [place] [address] 06/03/2024 2:00 PM SOUNDSCRIBER MECHANIC Office Visit [facility] - Rheumatology [address] [place] [address] Gloria Smith MD [address] [place] [phone] documented as of this encounter Procedures Procedure Name Priority Date/Time Associated Diagnosis Comments ERYTHROCYTE SEDIMENTATION RATE 08/01/2017 1:00 PM CDT CBC W AUTO DIFFERENTIAL 08/01/2017 1:00 PM CDT COMPREHENSIVE METABOLIC PANEL 08/01/2017 1:00 PM CDT documented in this encounter Results * (ABNORMAL) ERYTHROCYTE SEDIMENTATION RATE (08/01/2017 1:00 PM CDT) Erythrocyte Sedimentation Rate Westergren 37(H) 0 - 30 mm/hr [facility] INSURANCE BILL 08/01/2017 1:00 PM CDT 08/01/2017 Narrative Resulting Agency Comment [facility] [address] [facility] [phone] Isidro Heredia MD LAB - HEMATOLOGY OR DERABLES [facility] INSURANCE BILL [address] [place] [address] * (ABNORMAL) COMPREHENSIVE METABOLIC PANEL (08/01/2017 1:00 PM CDT) Glucose 111(H) 65 - 99 mg/dL [facility] INSURANCE BILL BUN 12 6 - 24 mg/dL [facility] INSURANCE BILL Creatinine 0.97 0.76 - 1.27 mg/dL [facility] INSURANCE BILL eGFR by MDRD 88 >59 mL/min/1.7 3 [facility] INSURANCE BILL eGFR by MDRD 102 >59 mL/min/1.7 3 [facility] INSURANCE BILL BUN/Creatinine Ratio 12 9 - 20 [facility] INSURANCE BILL Sodium 143 134 - 144 mmol/L [facility] INSURANCE BILL Potassium 3.6 3.5 - 5.2 mmol/L [facility] INSURANCE BILL Chloride 100 96 - 106 mmol/L [facility] INSURANCE BILL CO2 26 18 - 29 mmol/L [facility] INSURANCE BILL Calcium 9.2 8.7 - 10.2 mg/dL [facility] INSURANCE BILL Protein Total 6.5 6.0 - 8.5 g/dL [facility] INSURANCE BILL Albumin 4.1 3.5 - 5.5 g/dL [facility] INSURANCE BILL Globulin Total 2.4 1.5 - 4.5 g/dL [facility] INSURANCE BILL Albumin/Globulin Ratio 1.7 1.2 - 2.2 [facility] INSURANCE BILL Bilirubin Total 0.4 0.0 - 1.2 mg/dL [facility] INSURANCE BILL Alkaline Phosphatase 72 39 - 117 IU/L [facility] INSURANCE BILL AST 22 0 - 40 IU/L [facility] INSURANCE BILL ALT 22 0 - 44 IU/L [facility] INSURANCE BILL 08/01/2017 1:00 PM CDT 08/01/2017 Narrative Resulting Agency Comment [facility] [address] [facility] [phone] Isidro Heredia MD LAB - CHEMISTRY ORD ERABLES [facility] INSURANCE BILL [address] [place] [address] * (ABNORMAL) CBC W AUTO DIFFERENTIAL (08/01/2017 1:00 PM CDT) WBC 6.5 3.4 - 10.8 x10E3/uL [facility] INSURANCE BILL RBC 3.96(L) 4.14 - 5.80 x10E6/uL [facility] INSURANCE BILL Hemoglobin 12.3(L) 13.0 - 17.7 g/dL [facility] INSURANCE BILL Hematocrit 37.2(L) 37.5 - 51.0 % [facility] INSURANCE BILL MCV 94 79 - 97 fL [facility] INSURANCE BILL MCH 31.1 26.6 - 33.0 pg [facility] INSURANCE BILL MCHC 33.1 31.5 - 35.7 g/dL [facility] INSURANCE BILL RDW 13.9 12.3 - 15.4 % [facility] INSURANCE BILL Platelet Count 220 150 - 379 x10E3/uL [facility] INSURANCE BILL Granulocytes % 57 Not Estab. % [facility] INSURANCE BILL Lymphocytes % 30 Not Estab. % [facility] INSURANCE BILL Monocytes % 8 Not Estab. % [facility] INSURANCE BILL Eosinophils % 4 Not Estab. % [facility] INSURANCE BILL Basophils % 1 Not Estab. % [facility] INSURANCE BILL Immature Cells NOT NEEDED [facility] INSURANCE BILL Comment:Ancillary determined the test is not needed Granulocytes Absolute 3.8 1.4 - 7.0 x10E3/uL [facility] INSURANCE BILL Lymphocytes Absolute 1.9 0.7 - 3.1 x10E3/uL [facility] INSURANCE BILL Monocytes Absolute 0.5 0.1 - 0.9 x10E3/uL [facility] INSURANCE BILL Eosinophils Absolute 0.3 0.0 - 0.4 x10E3/uL [facility] INSURANCE BILL Basophils Absolute 0.0 0.0 - 0.2 x10E3/uL [facility] INSURANCE BILL Immature Granulocytes 0 Not Estab. % [facility] INSURANCE BILL Immature Granulocytes Absolute 0.0 0.0 - 0.1 x10E3/uL [facility] INSURANCE BILL nRBC NOT NEEDED [facility] INSURANCE BILL Comment:Ancillary determined the test is not needed Comment Hematology NOT NEEDED [facility] INSURANCE BILL Comment:Ancillary determined the test is not needed 08/01/2017 1:00 PM CDT 08/01/2017 Narrative Resulting Agency Comment [facility] [address] [facility] [phone] Isidro Heredia MD LAB - HEMATOLOGY OR DERABLES [facility] INSURANCE BILL [address] [place] [address] documented in this encounter Visit Diagnoses Not on filedocumented in this encounter Care Teams Elevator Constructor Supervisor Relationship Specialty Start Date End Date Tomas Hyman MD [address] [place] [address] PCP - General Family Medicine 12/31/13 05/09/18 Isidro Heredia MD Rheumatology 02/09/11 documented as of this encounter
--- OUTSIDE RECORDS SUMMARY | 2024-05-03 04:08 | XMS_ITS | Encounter Summary ---
Author Organization [facility] Address [address] [place] [address] Care Team Providers Care Dairy Equipment Installer Name Role Phone Isidro Heredia MD Unavailable Tomas Hyman MD Primary Care Provider [phone] Reason for Visit * Reason Onset Date Comments MEDICATION REFILL 04/05/2017 Encounter Details Date Type Department Care Team (Late Contact Info) Description 04/05/2017 Refill [facility] - Rheumatology [address] [place] [address] Isidro Heredia MD [address] [place] [address] MEDICATION REFILL Social History Tobacco Use [...] (Late Contact Info) Description 06/03/2024 1:00 PM WELT POCKET MACHINE OPERATOR Appointment [facility] - Rheumatology [address] [place] [address] 06/03/2024 2:00 PM WELT POCKET MACHINE OPERATOR Office Visit [facility] - Rheumatology [address] [place] [address] Gloria Smith MD [address] [place] [address] documented as of this encounter Visit Diagnoses Not on filedocumented in this encounter Care Teams Dairy Equipment Installer Relationship Specialty Start Date End Date Tomas Hyman MD [address] [place] [address] PCP - General Family Medicine 12/31/13 05/09/18 Isidro Heredia MD Rheumatology 02/09/11 documented as of this encounter
--- OUTSIDE RECORDS SUMMARY | 2024-05-03 04:08 | XMS_ITS | Encounter Summary ---
Author Organization [facility] Health Address [address] [facility] [place] [address] Care Team Providers Care Physical Sciences Professor Name Role Phone Isidro Heredia MD Unavailable [phone] Tomas Hyman MD Primary Care Provider [phone] Reason for Visit * Treatment (Routine) - Closed Specialty Diagnoses / Procedures Referred By Lawrence shah Referred To Contact [place] [id number] [address] [facility] Pain Care [address] [place] [address] Referral ID Status Reason Start Date Expiration Date Visits Re quested Visits Authorized [id number] Closed 12/21/2016 06/19/2017 1 3 Encounter Details Date Type Department Care Team (Latest Contact Info) Description 02/22/2017 10:11 AM CDT - 02/22/2017 10:12 AM CDT Hospital Encounter [facility] Health Pain Care [address] [place] [address] [place] [id number] [address] Discharge Disposition: Home or Self Care Social [...] daily 10/24/2017 documented as of this encounter Plan of Treatment Upcoming Encounters Date Type Department Care Team (Late st Contact Info) Description 06/03/2024 1:00 PM MERCHANDISE EXECUTION LEADER Appointment [facility] - Rheumatology [address] [place] [address] [phone] 06/03/2024 2:00 PM MERCHANDISE EXECUTION LEADER Office Visit [facility] - Rheumatology [address] [place] [address] Gloria Smith MD [address] [place] [phone] documented as of this encounter Visit Diagnoses Not on filedocumented in this encounter Care Teams Physical Sciences Professor Relationship Specialty Start Date End Date Tomas Hyman MD [address] [facility] [address] [place] [address] PCP - General Family Medicine 12/31/13 05/09/18 Isidro Heredia MD Rheumatology 02/09/11 documented as of this encounter
--- OUTSIDE RECORDS SUMMARY | 2024-05-03 04:08 | XMS_ITS | Encounter Summary ---
Author Organization [facility] Address [address] [place] [address] Care Team Providers Care Manager Of Manufacturing Name Role Phone Isidro Heredia MD Unavailable [phone] Tomas Hyman MD Primary Care Provider [phone] Encounter Details Date Type Department Care Team (Late Contact Info) Description 10/19/2017 Orders Only [facility] - Rheumatology [address] [place] [address] Isidro Heredia MD [address] [place] [address] Rheumatoid arthritis of multiple sites with [...] (Late Contact Info) Description 06/03/2024 1:00 PM SAND MILLER Appointment [facility] - Rheumatology [address] [place] [address] 06/03/2024 2:00 PM SAND MILLER Office Visit [facility] Rheumatology [address] [place] [address] Gloria Smith MD [address] [place], [place] [address], [place] [address] documented as of this encounter Procedures Procedure Name Priority Date/Time Associated Diagnosis Comments ERYTHROCYTE SEDIMENTATION RATE Routine 10/24/2017 1:30 PM CDT Rheumatoid arthritis of multiple sites with negative rheumatoid factor (HCC) CBC W AUTO DIFFERENTIAL Routine 10/24/2017 1:30 PM CDT Rheumatoid arthritis of multiple sites with negative rheumatoid factor (HCC) COMPREHENSIVE METABOLIC PANEL Routine 10/24/2017 1:30 PM CDT Rheumatoid arthritis of multiple sites with negative rheumatoid factor (HCC) documented in this encounter Results * (ABNORMAL) ERYTHROCYTE SEDIMENTATION RATE (10/24/2017 1:30 PM CDT) Erythrocyte Sedimentation Rate Westergren 33(H) 0 - 30 mm/hr [facility] INSURANCE BILL Blood BLOOD SPECIMEN / Unknown 10/24/2017 1:30 PM CDT 10/24/2017 Narrative Resulting Agency Comment [facility] [address] [facility] ??Critical access hospital [phone] Isidro Heredia MD LAB - HEMATOLOGY OR DERABLES [facility] INSURANCE BILL [address] [place] [address] * (ABNORMAL) COMPREHENSIVE METABOLIC PANEL (10/24/2017 1:30 PM CDT) Glucose 114(H) 65 - 99 mg/dL [facility] INSURANCE BILL BUN 14 6 - 24 mg/dL [facility] INSURANCE BILL Creatinine 1.11 0.76 - 1.27 mg/dL [facility] INSURANCE BILL eGFR by MDRD 74 >59 mL/min/1.7 3 [facility] INSURANCE BILL eGFR by MDRD 86 >59 mL/min/1.7 3 [facility] INSURANCE BILL BUN/Creatinine Ratio 13 9 - 20 [facility] INSURANCE BILL Sodium 139 134 - 144 mmol/L [facility] INSURANCE BILL Potassium 4.5 3.5 - 5.2 mmol/L [facility] INSURANCE BILL Chloride 101 96 - 106 mmol/L [facility] INSURANCE BILL CO2 25 20 - 29 mmol/L [facility] INSURANCE BILL Comment:Please note refere nce interval change Calcium 9.3 8.7 - 10.2 mg/dL [facility] INSURANCE BILL Protein Total 6.6 6.0 - 8.5 g/dL [facility] INSURANCE BILL Albumin 4.1 3.5 - 5.5 g/dL [facility] INSURANCE BILL Globulin Total 2.5 1.5 - 4.5 g/dL [facility] INSURANCE BILL Albumin/Globulin Ratio 1.6 1.2 - 2.2 [facility] INSURANCE BILL Bilirubin Total 0.3 0.0 - 1.2 mg/dL [facility] INSURANCE BILL Alkaline Phosphatase 65 39 - 117 IU/L [facility] INSURANCE BILL AST 24 0 - 40 IU/L [facility] INSURANCE BILL ALT 21 0 - 44 IU/L [facility] INSURANCE BILL Blood BLOOD SPECIMEN / Unknown 10/24/2017 1:30 PM CDT 10/24/2017 Narrative Resulting Agency Comment [facility] [address] [facility] ??Critical access hospital [phone] Isidro Heredia MD LAB - CHEMISTRY ORD ERABLES [facility] INSURANCE BILL [address] [place] [address] * (ABNORMAL) CBC W AUTO DIFFERENTIAL (10/24/2017 1:30 PM CDT) WBC 11.1(H) 3.4 - 10.8 x10E3/uL [facility] INSURANCE BILL RBC 3.83(L) 4.14 - 5.80 x10E6/uL [facility] INSURANCE BILL Hemoglobin 11.6(L) 13.0 - 17.7 g/dL [facility] INSURANCE BILL Hematocrit 35.5(L) 37.5 - 51.0 % [facility] INSURANCE BILL MCV 93 79 - 97 fL [facility] INSURANCE BILL MCH 30.3 26.6 - 33.0 pg [facility] INSURANCE BILL MCHC 32.7 31.5 - 35.7 g/dL [facility] INSURANCE BILL RDW 14.5 12.3 - 15.4 % [facility] INSURANCE BILL Platelet Count 219 150 - 379 x10E3/uL [facility] INSURANCE BILL Granulocytes % 76 Not Estab. % [facility] INSURANCE BILL Lymphocytes % 18 Not Estab. % [facility] INSURANCE BILL Monocytes % 5 Not Estab. % [facility] INSURANCE BILL Eosinophils % 1 Not Estab. % [facility] INSURANCE BILL Basophils % 0 Not Estab. % [facility] INSURANCE BILL Immature Cells NOT NEEDED [facility] INSURANCE BILL Comment:Ancillary determined the test is not needed Granulocytes Absolute 8.3(H) 1.4 - 7.0 x10E3/uL [facility] INSURANCE BILL [...] not needed Blood BLOOD SPECIMEN / Unknown 10/24/2017 1:30 PM CDT 10/24/2017 Narrative Resulting Agency Comment [facility] [address] ??Critical access hospital [phone] Isidro Heredia MD LAB - HEMATOLOGY OR DERABLES Performing Organization Address City/State/[facility] Co de Phone Number [facility] INSURANCE BILL [address] [place] [address] documented in this encounter Visit Diagnoses Diagnosis Rheumatoid arthritis of multiple sites with negative rheumatoid factor (HCC)- Primary documented in this encounter Care Teams Manager Of Manufacturing Relationship Specialty Start Date End Date Tomas Hyman MD [address] [facility] [address] [place] [address] PCP - General Family Medicine 12/31/13 05/09/18 Isidro Heredia MD Rheumatology 02/09/11 documented as of this encounter
--- OUTSIDE RECORDS SUMMARY | 2024-05-03 04:08 | XMS_ITS | Encounter Summary ---
Author Organization [facility] Address [address] [facility] [place] [address] Care Team Providers Care Steno Typist Name Role Phone Isidro Heredia MD Unavailable [phone] Tomas Hyman MD Primary Care Provider [phone] Reason for Visit * Treatment (Routine) - Closed Specialty Diagnoses / Procedures Referred By Lawrence shah Referred To Contact Infusion Therapy Nurse Diagnoses Rheumatoid arthritis without rheumatoid factor, multiple sites (HCC) Procedures DE INJECTION TOCILIZUMAB 1 MG Isidro Heredia MD [facility] [place] [address] [address] Referral ID Status Reason Start Date Expiration Date Visits Re quested Visits Authorized [id number] Closed 05/11/2017 04/29/2018 1 13 Encounter Details Date Type Department Care Team (Late st Contact Info) Description 10/24/2017 1:17 PM CDT - 10/24/2017 11:59 PM CDT Hospital Encounter [facility] - Rheumatology [address] [place] [address] Isidro Heredia MD [address] [facility] [place] [address] Discharge Disposition: Home or Self [...] Sign Reading Time Taken Comments Blood Pressure 132/72 10/24/2017 1:46 PM CDT Pulse 91 10/24/2017 1:46 PM CDT Temperature 36.9 ??C (98.4 ??F) 10/24/2017 1:46 PM CD T Respiratory Rate 18 10/24/2017 1:46 PM CDT Oxygen Saturation - - Inhaled Oxygen Concentration - - Weight 106.1 kg (234 lb) 10/24/2017 1:46 PM CDT Height - - Body Mass Index 33.58 01/11/2016 3:12 PM CDT documented in this encounter Discharge Instructions * Discharge Instructions* Jody Sahu RN - 10/24/2017 1:51 PM CDT [place] [facility] Post Infusion instructions You have [...] Sunday through 01-02 call the office at [phone] After hours or on the weekend call the exchange at [phone] If you have had lab work done [...] you and are glad you have chosen [facility] as your provider. Jody Sahu [...] 07/25/2017 12/12/2018 naproxen (NAPROSYN) 500 MG tablet TAKE 1 TABLET TWICE A DAY 180 tablet 2 06/19/2017 11/21/2017 oxyCODONE-acetaminoph en (PERCOCET) 5-325 MG tablet Take 1 tablet by mouth every 6 hours as needed for Pain Dx: 714.0 RA 120 tablet 10/24/2017 12/19/2017 predniSONE (DELTASONE) 10 MG tablet TAKE 1 TABLET TWICE A DAY 180 tablet 1 06/18/2017 12/12/2018 REFRESH PLUS 0.5 % ophthalmic solution Instill 1 Drop into both eyes every 3 hours as needed 11/21/2016 09/05/2018 Tocilizumab (ACTEMRA IV) 800 mg by Intravenous route every 30 days 03/07/2018 documented as of this encounter Progress Notes * Jody Sahu RN - 10/24/2017 2:10 PM CDT JOSE Allred Deng [id number] 10/24/2017 Diagnosis: Rheumatoid arthritis without rheumatoid factor, multiple sites [M06.09]. Pt denies symptoms of infection or antibiotic use, no open wounds, or recent surgery, or plans for surgery in the next couple of weeks. Pt is aware that we use the 0-10 pain scale to assess discomfort. 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 front end architect pt signs consent for treatment for this infusion. BP 132/72 Pulse 91 Temp 98.4 ??F Resp 18 Wt 106.1 kg (234 lb) BMI 33.58 kg/m2 @ MEDICATIONS FOR CURRENT ENCOUNTER: ?? [...] st Contact Info) Description 06/03/2024 1:00 PM RABBLER Appointment [facility] - Rheumatology [address] [place] [address] [phone] 06/03/2024 2:00 PM RABBLER Office Visit [facility] - Rheumatology [address] [place] [address] [phone] Gloria Smith MD [address] [place] [phone] documented as of this encounter Visit Diagnoses Diagnosis Rheumatoid arthritis of multiple sites with negative rheumatoid factor (HCC) documented in this encounter Administered Medications Inactive Administered Medications - up to 3 most recent administrations Medication Order MAR Action Action Date Dose Rate Site Tocilizumab 800 mg in 0.9% NaCl 100 mL IVPB 800 mg, at 100 mL/hr, Intravenous, ONCE, 1 dose, On Sun10/24/17 at 1400, Stable 24hrs RT $ New Bag/Syringe 10/24/2017 1:55 PM CDT 800 mg 100 mL/hr documented in this encounter Care Teams Steno Typist Relationship Specialty Start Date End Date Tomas Hyman MD [address] [facility] [address] [place] [address] PCP - General Family Medicine 12/31/13 05/09/18 Isidro Heredia MD Rheumatology 02/09/11 documented as of this encounter
--- OUTSIDE RECORDS SUMMARY | 2024-05-03 04:08 | XMS_ITS | Encounter Summary ---
Author Organization [facility] Address [address] [facility] [place] [address] Care Team Providers Care Robot Technician Name Role Phone Isidro Heredia MD Unavailable [phone] Tomas Hyman MD Primary Care Provider [phone] Reason for Visit * Reason Comments Rheumatoid Arthritis Encounter Details Date Type Department Care Team (Late st Contact Info) Description 08/01/2017 2:15 PM CDT Office Visit [facility] - Rheumatology [address] [place] [address] Isidro Heredia MD [address] [place] [address] Abnormal LFTs (Primary Dx); Chronic right-sided low back pain with right-sided sciatica; Rheumatoid arthritis of 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 male is here for Chief Complaint Patient presents with ??? Rheumatoid Arthritis HPI: On mtx and back on actemra for r a and percocet for chronic Pain Pain Level 7/10 right shoulder Am stiffness 2-3 hrs Global 8/10 Fatigue yes Medication Side Effects none BP Readings from Last 2 Encounters: 08/01/17 156/89 08/01/17 156/89 Wt Readings from Last 2 Encounters: 08/01/17 108 kg (238 lb) 08/01/17 108 kg (238 lb) Temp Readings from Last 2 Encounters: 08/01/17 98.8 ??F 04/05/17 99 ??F Pulse Readings from Last 2 Encounters: 08/01/17 102 08/01/17 102 Current Outpatient Prescriptions on File Prior to Visit Medication Sig Dispense Refill ??? methotrexate 2.5 MG tablet TAKE 6 TABLETS EVERY 7 DAYS 72 tablet 2 ??? naproxen (NAPROSYN) 500 MG tablet TAKE 1 TABLET TWICE A DAY 180 tablet 2 ??? predniSONE (DELTASONE) 10 MG tablet TAKE 1 TABLET TWICE A DAY 180 tablet 1 ??? hydroCHLOROthiazide (HYDRODIURIL) 25 MG tablet Take [...] 325 mg by mouth once daily ??? REFRESH PLUS 0.5 % ophthalmic solution Instill 1 Drop into both eyes every 3 hours as needed ??? Tocilizumab (ACTEMRA IV) 800 mg by Intravenous route every 30 days ??? gabapentin (NEURONTIN) 300 MG capsule 1 Cap 2 times daily 180 Cap 1 ??? topiramate (TOPAMAX) 50 MG tablet Take 50 mg by mouth once daily ??? pantoprazole EC (PROTONIX) 40 MG [...] 1 Tab by mouth once daily ??? Mquvykadxom-Svystjgoo-Iwn C-Mn (GLUCOSAMINE CHONDR 1500 COMPLX PO) Take 1 Tab by mouth once daily ??? ZYRTEC 10 MG TABS Take 10 mg by mouth once daily. Seasonal (nov. No current facility-administered medications on file prior to visit. Patient Active Problem List Diagnosis ??? Rheumatoid arthritis of multiple sites with negative rheumatoid factor ??? GERD (gastroesophageal reflux disease) ??? Osteopenia ??? Anemia ??? Subacromial bursitis ??? Chronic pain syndrome ??? Pain medication agreement signed ??? Other and unspecified hyperlipidemia ??? Lumbar radiculopathy ??? Abnormal LFTs ??? Chronic right-sided low back pain with right-sided sciatica ??? Triceps tendonitis ??? Triceps tendonitis History Smoking Status ??? [...] lungs Objective: General Appearance Physical Exam: BP 156/89 Pulse 102 Wt 108 kg (238 lb) BMI 34.15 kg/m2 Head: perrla, eyes no irritation, vision [...] tenderness or weakness Painful abduction Right shoulder . Assessment: Encounter Diagnoses Name Primary? Abnormal LFTs Yes ??? Chronic right-sided low back pain with right-sided sciatica ??? Rheumatoid arthritis of multiple sites with negative rheumatoid factor ??? Chronic pain syndrome ??? Triceps tendonitis poorly controlled chronic pain and ra and shoulder tendonitis Under sterile condition, 2 cc's of tac with 1 cc 2% [id number] were injected in the right shoulder Triceps tendon . 0 cc's of synovial fluid were aspirated. Patient tolerated procedure well without complications. Plan: Plan Orders Placed This Encounter ??? VT DRAIN/INJECT LARGE JOINT/BURSA ??? oxyCODONE-acetaminophen (PERCOCET) 5-325 MG tablet Sig: Take 1 tablet by mouth every 6 hours as needed for Pain Dx: 714.0 RA Dispense: 120 tablet Refill: 0 ??? lidocaine hcl (PF) (XYLOCAINE MPF) 2 % injection ??? triamcinolone acetonide (KENALOG-40) injection 80 mg Follow up in office in 4 weeks documented in this encounter Plan of Treatment Upcoming Encounters Date Type Department Care Team (Late st Contact Info) Description 06/03/2024 1:00 PM PRINCIPAL PLANNER Appointment [facility] - Rheumatology [address] [place] [address] [phone] 06/03/2024 2:00 PM PRINCIPAL PLANNER Office Visit [facility] - Rheumatology [address] [place] [address] Gloria Smith MD [address] [place] [phone] documented as of this encounter Visit Diagnoses Diagnosis Abnormal LFTs- Primary Other abnormal blood chemistry Chronic right-sided low back pain with right-sided sciatica Rheumatoid arthritis of multiple sites with negative rheumatoid factor (HCC) Chronic pain syndrome Triceps tendonitis Other enthesopathy of elbow region documented in this encounter Administered Medications Inactive Administered Medications - up to 3 most recent administrations Medication Order MAR Action Action Date Dose Rate Site lidocaine hcl (PF) (XYLOCAINE MPF) 2 % injection Intra-articular, ONCE, 1 dose, On Sun08/01/17 at 1600 $ Given 08/01/2017 3:31 PM CDT 1 mL Right Shoulder triamcinolone acetonide (KENALOG-40) injection 80 mg 80 mg, Intra-articular, ONCE, 1 dose, On Sun08/01/17 at 1600, Shake well before using. $ Given 08/01/2017 3:31 PM CDT 80 mg Right Shoulder documented in this encounter Care Teams Robot Technician Relationship Specialty Start Date End Date Tomas Hyman MD [address] [place] [address] PCP - General Family Medicine 12/31/13 05/09/18 Isidro Heredia MD Rheumatology 02/09/11 documented as of this encounter
--- OUTSIDE RECORDS SUMMARY | 2024-05-03 04:08 | XMS_ITS | Encounter Summary ---
Author Organization [facility] Address [address] [place] [address] Care Team Providers Care Deputy Head Name Role Phone Isidro Heredia MD Unavailable Tomas Hyman MD Primary Care Provider [phone] Encounter Details Date Type Department Care Team (Latest Contact Info) Description 03/01/2017 10:05 AM CDT - 03/01/2017 11:59 PM CDT Hospital Encounter [facility] [address] [place] [address] [place] [address] [place] [address] Discharge Disposition: Home or Self Care Social [...] Sign Reading Time Taken Comments Blood Pressure 149/93 03/01/2017 10:55 AM CDT Pulse 83 03/01/2017 10:55 AM CDT Temperature - - Respiratory Rate 16 03/01/2017 10:55 AM CDT Oxygen Saturation 98% 03/01/2017 10:55 AM CDT Inhaled Oxygen Concentration - - Weight - - Height - - Body Mass Index - - documented in this encounter Discharge Instructions * Patient Instructions* Ashlie Henao RN - 03/01/2017 10:10 AM CDT [facility] Pain Discharge Instructions Selective Epidural [...] headache, or any other problems, please call [phone] or after hours callDr. Mirza at [phone] and tell them your physician's name. The exchange will alert the physician instrument and control service person. If sedation is given: No sedation given. For Your Next Visit: No additional instructions. Other Instructions: May remove band-aid in 12 Hours. Return 2 week follow up. documented in this encounter Medications [...] Progress Notes * Alejandro Mirza MD - 03/01/2017 10:14 AM CDT History and physical completed on 02/08/2017. Was reviewed today and no changes noted. documented in this encounter Procedure Notes * Alejandro Mirza MD - 03/01/2017 11:18 AM CDTAssociated Order(s): PAIN MANAGEMENT PROCEDURE TIME Right L5 & S1 Transforaminal Epidural Injection Patient Name: Chalino Deng Provider: Alejandro Mirza MD Date of : 1960 Date: 03/01/2017 PCP: Tomas Hyman MD Allergies: Allergies as of 03/01/2017 - Carl as Reviewed 03/01/2017 Allergen Reaction Noted ??? Plaquenil [hydroxychloroquine sulfate] 05/15/2011 ??? Tuberculin ppd 07/27/2008 Medical History: Past Medical History: Diagnosis Date ??? RA (rheumatoid arthritis) Current Medications: Current Outpatient Prescriptions Medication ??? REFRESH PLUS 0.5 % ophthalmic solution ??? Tocilizumab (ACTEMRA IV) ??? gabapentin (NEURONTIN) 300 MG capsule ??? oxyCODONE-acetaminophen (PERCOCET) 5-325 MG tablet ??? metaxalone (SKELAXIN) 800 MG tablet ??? predniSONE (DELTASONE) 10 MG tablet ??? phentermine (ADIPEX-P) 37.5 MG capsule ??? topiramate (TOPAMAX) 50 MG tablet ??? methotrexate 2.5 MG tablet ??? naproxen (NAPROSYN) 500 MG tablet ??? pantoprazole EC (PROTONIX) 40 MG tablet ??? carvedilol (COREG) 12.5 MG tablet ??? alendronate (FOSAMAX) 70 MG tablet ??? atorvastatin (LIPITOR) 40 MG tablet ??? KRILL OIL PO ??? aspirin EC (ECOTRIN) 81 MG tablet ??? Magnesium Citrate 100 MG TABS ??? Multiple Vitamins-Minerals (OCUVITE PO) ??? Multiple Vitamin (MULTI-VITAMIN PO) ??? Mosszucdokk-Bnagcxkhx-Uyw C-Mn (GLUCOSAMINE CHONDR 1500 COMPLX PO) ??? ZYRTEC 10 MG TABS Current Facility-Administered Medications Medication ??? methylPREDNISolone acetate (DEPO-Medrol) injection 80 mg ??? lidocaine (XYLOCAINE MPF) 1 % injection ??? bupivacaine PF (MARCAINE PF) 0.25 % injection ??? bupivacaine 0.25% - EPINEPHrine 1:200,000 (PF) injection Procedure: TFE Right L5 & S1 Diagnosis/Indication::Lumbar Transforaminal epidural injection M54.17, M48.06 M51.17 Indication for Procedure: Intractable radicular pain of the lower extremity. Other conservative therapies and/or treatments provided inadequate pain relief. Procedure: Lumbar/Sacral Transforaminal Injection. Informed Consent: After the patient ,Chalino Deng was informed of the risks and [...] identified, and marked by Dr. Mirza. Responsible freight delivery driver is not needed due to the patient not having sedation.The patient was placed in a prone position [...] in Lat fluoroscopic visualization. Nerve Root injected: Right L5 & S1. Total Lidocaine: 1%; 6 ml Dexamethasone 10mg, 5mg per level Omnipaque: 240 .5cc per level Estimated Blood Loss: None Omnipaque wase: 240 9cc The patient tolerated the procedure well [...] Add Levels Lumb/Sac, Fluoro. Alejandro Mirza MD * Alejandro Mirza MD - 02/22/2017 10:45 AM CDTAssociated Order(s): PAIN MANAGEMENT PROCEDURE TIME Right L5 & S1 Transforaminal Epidural Injection Patient Name: Chalino Deng Provider: Alejandro Mirza MD Date of : 1960 Date: 02/22/2017 PCP: Tomas Hyman MD Allergies: Allergies as of 03/01/2017 - Carl as Reviewed 03/01/2017 Allergen Reaction Noted ??? Plaquenil [hydroxychloroquine sulfate] 05/15/2011 ??? Tuberculin ppd 07/27/2008 Medical History: Past Medical History: Diagnosis Date ??? RA (rheumatoid arthritis) Current Medications: Current Outpatient Prescriptions Medication ??? REFRESH PLUS 0.5 % ophthalmic solution ??? Tocilizumab (ACTEMRA IV) ??? gabapentin (NEURONTIN) 300 MG capsule ??? oxyCODONE-acetaminophen (PERCOCET) 5-325 MG tablet ??? metaxalone (SKELAXIN) 800 MG tablet ??? predniSONE (DELTASONE) 10 MG tablet ??? phentermine (ADIPEX-P) 37.5 MG capsule ??? topiramate (TOPAMAX) 50 MG tablet ??? methotrexate 2.5 MG tablet ??? naproxen (NAPROSYN) 500 MG tablet ??? pantoprazole EC (PROTONIX) 40 MG tablet ??? carvedilol (COREG) 12.5 MG tablet ??? alendronate (FOSAMAX) 70 MG tablet ??? atorvastatin (LIPITOR) 40 MG tablet ??? KRILL OIL PO ??? aspirin EC (ECOTRIN) 81 MG tablet ??? Magnesium Citrate 100 MG TABS ??? Multiple Vitamins-Minerals (OCUVITE PO) ??? Multiple Vitamin (MULTI-VITAMIN PO) ??? Kipxrvdtppc-Peqnrlqso-Azh C-Mn (GLUCOSAMINE CHONDR 1500 COMPLX PO) ??? ZYRTEC 10 MG TABS Current Facility-Administered Medications Medication ??? methylPREDNISolone acetate (DEPO-Medrol) injection 80 mg ??? lidocaine (XYLOCAINE MPF) 1 % injection ??? bupivacaine PF (MARCAINE PF) 0.25 % injection ??? bupivacaine 0.25% - EPINEPHrine 1:200,000 (PF) injection Procedure: TFE Right L5 & S1 Diagnosis/Indication::Lumbar Transforaminal epidural injection M54.17, M48.06 M51.17 Indication for Procedure: Intractable radicular pain of the lower extremity. Other conservative therapies and/or treatments provided inadequate pain relief. Procedure: Lumbar/Sacral Transforaminal Injection. Informed Consent: After the patient ,Chalino Deng was informed of the risks and [...] identified, and marked by Dr. Mirza. Responsible freight delivery driver is not needed due to the patient not having sedation.The patient was placed in a prone position [...] in Lat fluoroscopic visualization. Nerve Root injected: Right L5 & S1. Total Lidocaine: 1%; 6 ml Dexamethasone 10mg, 5mg per level Omnipaque: 240 .5cc per level Estimated Blood Loss: None Omnipaque wase: 240 9cc The patient tolerated the procedure well [...] st Contact Info) Description 06/03/2024 1:00 PM PAN RECLAIM PROCESSOR Appointment [facility] - Rheumatology [address] [place] [address] [id number] 06/03/2024 2:00 PM PAN RECLAIM PROCESSOR Office Visit [facility] - Rheumatology [address] [place] [address] Gloria Smith MD [address] [place] [address] [phone] documented as of this encounter Procedures Procedure Name Priority Date/Time Associated Diagnosis Comments PAIN MANAGEMENT PROCEDURE TIME Routine 03/01/2017 10:22 AM CDT Intervertebral disc disorder with radiculopathy of lumbosacral region Low back pain, unspecified back pain laterality, unspecified chronicity, with sciatica presence unspecified PAIN MANAGEMENT PROCEDURE TIME Routine 02/22/2017 10:34 AM CDT Low back pain, unspecified back pain laterality, unspecified chronicity, with sciatica presence unspecified documented in this encounter Results * PAIN MANAGEMENT PROCEDURE TIME (03/01/2017 10:22 AM CDT) Anatomical Region Laterality Modality X-Ray Angiograph y Narrative 03/01/2017 11:19 AM CDT Alejandro Mirza MD ? 03/01/2017 11:19 AM Right L5 & S1 Transforaminal Epidural Injection Patient Name: Chalino Deng ?Provider: Alejandro Mirza MD Date of : 1960 ?Date: 03/01/2017 PCP: Tomas Hyman MD Allergies: Allergies as of 03/01/2017 - Carl as Reviewed 03/01/2017 Allergen Reaction Noted ? ? Plaquenil [hydroxychloroquine sulfate] ??05/15/2011 ? ? Tuberculin ppd ??07/27/2008 Medical History: Past Medical History: Diagnosis Date ? ? RA (rheumatoid arthritis) ?? Current Medications: Current Outpatient Prescriptions Medication ? ? REFRESH PLUS 0.5 % ophthalmic solution ? ? Tocilizumab (ACTEMRA IV) ? ? gabapentin (NEURONTIN) 300 MG capsule ? ? oxyCODONE-acetaminophen (PERCOCET) 5-325 MG tablet ? ? metaxalone (SKELAXIN) 800 MG tablet ? ? predniSONE (DELTASONE) 10 MG tablet ? ? phentermine (ADIPEX-P) 37.5 MG capsule ? ? topiramate (TOPAMAX) 50 MG tablet ? ? methotrexate 2.5 MG tablet ? ? naproxen (NAPROSYN) 500 MG tablet ? ? pantoprazole EC (PROTONIX) 40 MG tablet ? ? carvedilol (COREG) 12.5 MG tablet ? ? alendronate (FOSAMAX) 70 MG tablet ? ? atorvastatin (LIPITOR) 40 MG tablet ? ? KRILL OIL PO ? ? aspirin EC (ECOTRIN) 81 MG tablet ? ? Magnesium Citrate 100 MG TABS ? ? Multiple Vitamins-Minerals (OCUVITE PO) ? ? Multiple Vitamin (MULTI-VITAMIN PO) ? ? Fwpmgggbrli-Omyjnjwop-Qwv C-Mn (GLUCOSAMINE CHONDR 1500 COMPLX PO) ? ? ZYRTEC 10 MG TABS Current Facility-Administered Medications Medication ? ? methylPREDNISolone acetate (DEPO-Medrol) injection 80 mg ? ? lidocaine (XYLOCAINE MPF) 1 % injection ? ? bupivacaine PF (MARCAINE PF) 0.25 % injection ? ? bupivacaine 0.25% - EPINEPHrine 1:200,000 (PF) injection Procedure: TFE ??Right L5 & S1 Diagnosis/Indication::Lumbar Transforaminal epidural injection ?? M54.17, M48.06 M51.17 Indication for Procedure: Intractable radicular pain of the lower extremity. Other conservative therapies and/or treatments provided inadequate pain relief. Procedure: ??Lumbar/Sacral Transforaminal Injection. Informed Consent: ??After the patient ,Chalino Deng was informed of the risks and [...] identified, and marked by Dr. Mirza. ??Responsible freight delivery driver is not needed due to the patient not having sedation.The patient was placed in a prone position and was prepped with Chloraprep. Fluoroscopy: ??Procedure done under fluoroscopy; verifying needle placement with ??fluoroscopy . The transverse process/sacral foramen was identified [...] in Lat fluoroscopic visualization. Nerve Root injected: Right L5 & S1. Total Lidocaine: 1%; 6 ml Dexamethasone 10mg, 5mg per level Omnipaque: 240 .5cc per level Estimated Blood Loss: None ? Omnipaque wase: 240 9cc ? The patient tolerated the procedure [...] MD Alejandro Mirza MD DIAGNOSTIC IMAGING O RDERAMEGAN documented in this encounter Visit Diagnoses Diagnosis Intervertebral disc disorder with radiculopathy of lumbosacral region Thoracic or lumbosacral neuritis or radiculitis, unspecified Low back pain, unspecified back pain laterality, unspecified chronicity, with sciatica presence unspecified documented in this encounter Administered Medications Inactive Administered Medications - up to 3 most recent administrations Medication Order MAR Action Action Date Dose Rate Site dexamethasone (DECADRON) injection 10 mg 10 mg, Intravenous, ONCE, 1 dose, On Gabriela 03/01/17 at 1030 $ Admin. by Other Provider 03/01/2017 10:24 AM CDT 10 mg iohexol (OMNIPAQUE 240) contrast Other, INTRA-PROCEDURE ONCE, 1 dose, On Gabriela 03/01/17 at 1010, Intra-epidural Administer per physician direction. $ Given - Contrast 03/01/2017 10:25 AM CDT 1 mL lidocaine (XYLOCAINE MPF) 1 % injection Infiltration, INTRA-PROCEDURE MULTIPLE, Starting on Gabriela 03/01/17 at 1010, Until Sun03/02/17 at 0119, Administer per physician direction. $ Admin. by Other Provider 03/01/2017 10:26 AM CDT 50 mg documented in this encounter Care Teams Deputy Head Relationship Specialty Start Date End Date Tomas Hyman MD [address] [place] [address] PCP - General Family Medicine 12/31/13 05/09/18 Isidro Heredia MD Rheumatology 02/09/11 documented as of this encounter
--- OUTSIDE RECORDS SUMMARY | 2024-05-03 04:08 | XMS_ITS | Encounter Summary ---
Author Organization [facility] Address [address] [place] [address] Care Team Providers Care Egg Setter Name Role Phone Isidro Heredia MD Unavailable [phone] Tomas Hyman MD Primary Care Provider [phone] Encounter Details Date Type Department Care Team (Late Contact Info) Description 12/18/2017 Orders Only [facility] - Rheumatology [address] [place] [address] Isidro Heredia MD [address] [place] [address] Encounter for long-term (current) use of [...] (Late Contact Info) Description 06/03/2024 1:00 PM BOTTLER Appointment [facility] - Rheumatology [address] [place] [address] 06/03/2024 2:00 PM BOTTLER Office Visit [facility] Rheumatology [address] [place] [address] Song, Gloria, MD [address] [place], [place] [address], [place] [phone] documented as of this encounter Procedures Procedure Name Priority Date/Time Associated Diagnosis Comments LIPID PROFILE W TCHOL/HDL Routine 12/19/2017 1:00 PM CDT Encounter for long-term (current) use of medications ERYTHROCYTE SEDIMENTATION RATE Routine 12/19/2017 1:00 PM CDT Encounter for long-term (current) use of medications CBC W AUTO DIFFERENTIAL Routine 12/19/2017 1:00 PM CDT Encounter for long-term (current) use of medications COMPREHENSIVE METABOLIC PANEL Routine 12/19/2017 1:00 PM CDT Encounter for long-term (current) use of medications documented in this encounter Results * (ABNORMAL) LIPID PROFILE W TCHOL/HDL (12/19/2017 1:00 PM CDT) Cholesterol 153 100 - 199 mg/dL [facility] [...] CDT 12/19/2017 Narrative Resulting Agency Comment [facility] [address] ??[place] [phone] Isidro Heredia MD LAB - CHEMISTRY ORD ERABLES Performing Organization Address [facility] Co de Phone Number [facility] INSURANCE BILL [address] [place] [address] * ERYTHROCYTE SEDIMENTATION RATE (12/19/2017 1:00 PM CDT) Erythrocyte Sedimentation Rate Westergren 3 0 - 30 mm/hr [facility] INSURANCE BILL Blood BLOOD SPECIMEN / Unknown 12/19/2017 1:00 PM CDT 12/19/2017 Narrative Resulting Agency Comment [facility] [address] ??[place] [phone] Isidro Heredia MD LAB - HEMATOLOGY OR DERABLES Performing Organization Address [facility] Co de Phone Number [facility] INSURANCE BILL [address] [place] [address] * (ABNORMAL) COMPREHENSIVE METABOLIC PANEL (12/19/2017 1:00 PM CDT) Glucose 110(H) 65 - 99 mg/dL [facility] INSURANCE BILL BUN 19 6 - 24 mg/dL [facility] INSURANCE BILL Creatinine 1.27 0.76 - 1.27 mg/dL [facility] INSURANCE BILL eGFR by MDRD 63 >59 mL/min/1.7 3 [facility] INSURANCE BILL eGFR by MDRD 73 >59 mL/min/1.7 3 [facility] INSURANCE BILL BUN/Creatinine Ratio 15 9 - 20 [facility] INSURANCE BILL Sodium [...] 1.2 mg/dL [facility] INSURANCE BILL Alkaline Phosphatase 47 39 - 117 IU/L [facility] INSURANCE BILL AST 35 0 - 40 IU/L [facility] INSURANCE BILL ALT 31 0 - 44 IU/L [facility] INSURANCE BILL Blood BLOOD SPECIMEN / Unknown 12/19/2017 1:00 PM CDT 12/19/2017 Narrative Resulting Agency Comment [facility] [address] [facility] [facility] ??[facility] [phone] Isidro Heredia MD LAB - CHEMISTRY ORD ERABLES [facility] INSURANCE BILL [address] [place] [address] * (ABNORMAL) CBC WITH DIFFERENTIAL (12/19/2017 1:00 PM CDT) WBC 7.2 3.4 - 10.8 x10E3/uL [facility] INSURANCE BILL RBC 3.88(L) 4.14 - 5.80 x10E6/uL [facility] INSURANCE BILL Hemoglobin 12.4(L) 13.0 - 17.7 g/dL [facility] INSURANCE BILL Hematocrit 35.9(L) 37.5 - 51.0 % [facility] INSURANCE BILL MCV 93 79 - 97 fL [facility] INSURANCE BILL MCH 32.0 26.6 - 33.0 pg [facility] INSURANCE BILL MCHC 34.5 31.5 - 35.7 g/dL [facility] INSURANCE BILL RDW 14.5 12.3 - 15.4 % [facility] INSURANCE BILL Platelet Count 168 150 - 379 x10E3/uL [facility] INSURANCE BILL Granulocytes % 65 Not Estab. % [facility] INSURANCE BILL Lymphocytes % 27 Not Estab. % [facility] INSURANCE BILL Monocytes % 5 Not Estab. % [facility] INSURANCE BILL Eosinophils % 2 Not Estab. % [facility] INSURANCE BILL Basophils % 1 Not Estab. % [facility] INSURANCE BILL Immature Cells NOT NEEDED [facility] INSURANCE BILL Comment:Ancillary determined the test is not needed Granulocytes Absolute 4.7 1.4 - 7.0 x10E3/uL [facility] INSURANCE BILL [...] not needed Blood BLOOD SPECIMEN / Unknown 12/19/2017 1:00 PM CDT 12/19/2017 Narrative Resulting Agency Comment [facility] [address] [facility] ??[facility] [phone] Isidro Heredia MD LAB - HEMATOLOGY OR DERABLES [facility] INSURANCE BILL [address] [place] [address] documented in this encounter Visit Diagnoses Diagnosis Encounter for long-term (current) use of medications- Primary Encounter for long-term (current) use of other medications documented in this encounter Care Teams Egg Setter Relationship Specialty Start Date End Date Tomas Hyman MD [address] [facility] [address] [place] [address] PCP - General Family Medicine 12/31/13 05/09/18 Isidro Heredia MD Rheumatology 02/09/11 documented as of this encounter
--- OUTSIDE RECORDS SUMMARY | 2024-05-03 04:08 | XMS_ITS | Encounter Summary ---
Author Organization [facility] Address [address] [facility] [place] [address] Care Team Providers Care Medical Office Receptionist Name Role Phone Isidro Heredia MD Unavailable [phone] Tomas Hyman MD Primary Care Provider [phone] Reason for Visit * Treatment (Routine) - Closed Specialty Diagnoses / Procedures Referred By Lawrence shah Referred To Contact Infusion Therapy Nurse Diagnoses Rheumatoid arthritis without rheumatoid factor, multiple sites (HCC) Procedures MA INJECTION TOCILIZUMAB 1 MG Isidro Heredia MD [address] [facility] [place] [address] [address] Referral ID Status Reason Start Date Expiration Date Visits Re quested Visits Authorized [id number] Closed 05/11/2017 04/29/2018 1 13 Encounter Details Date Type Department Care Team (Late st Contact Info) Description 11/21/2017 1:30 PM CDT - 11/21/2017 11:59 PM CDT Hospital Encounter [facility] Medical [facility] - Rheumatology [address] [place] [address] Isidro Heredia MD [address] [facility] [place] [address] Discharge Disposition: Home or Self [...] Sign Reading Time Taken Comments Blood Pressure 126/76 11/21/2017 1:55 PM CDT Pulse 70 11/21/2017 1:55 PM CDT Temperature 37 ??C (98.6 ??F) 11/21/2017 1:55 PM CDT Respiratory Rate 16 11/21/2017 1:55 PM CDT Oxygen Saturation - - Inhaled Oxygen Concentration - - Weight 107.5 kg (237 lb) 11/21/2017 1:55 PM CDT Height - - Body Mass Index 34.01 01/11/2016 3:12 PM CDT documented in this encounter Discharge Instructions * Discharge Instructions* Jody Sahu RN - 11/21/2017 2:11 PM CDT [place] Rheumatology Post Infusion instructions [...] Sunday through 01-02 call the office at [phone] After hours or on the weekend call the exchange at [phone] If you have had lab work done [...] you and are glad you have chosen [facility] as your provider. Jody [...] by mouth once daily Seasonal (nov Sept alendronate (FOSAMAX) 70 MG tablet TAKE 1 [...] times daily 180 capsule 1 11/21/2017 05/16/2018 KRILL OIL PO Take 500 mg by [...] Dx: 714.0 RA 120 tablet 10/24/2017 12/19/2017 pantoprazole EC (PROTONIX) 40 MG tablet Take [...] Progress Notes * Jody Sahu RN - 11/21/2017 2:14 PM CDT JOSE Deng [id number] 11/21/2017 Diagnosis: Rheumatoid arthritis without rheumatoid factor, multiple sites [M06.09]. Pt denies symptoms of infection or antibiotic use, no open wounds, or recent surgery, or plans for surgery in the next couple of weeks. Pt is aware that we use the 0-10 pain scale to assess discomfort. 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 vest front presser pt signs consent for treatment for this infusion. BP 126/76 Pulse 70 Temp 98.6 ??F Resp 16 Wt 107.5 kg (237 lb) BMI 34.01 kg/m2 @ MEDICATIONS FOR CURRENT ENCOUNTER: ?? SCHEDULED MEDICATIONS: ?? tocilizumab (ACTEMRA) 800 mg in 0.9% NaCl 100 mL IVPB, Intravenous, Once ?? CONTINUOUS MEDICATIONS: PRN MEDICATIONS: ?? Number of 24 gauge 3/4 inch placed in Left hand ?? 1 attempt(s). Patient monitored throughout procedure. Tolerated well? Yes Next treatment? 4 weeks Jody Sahu RN documented in this encounter Plan of Treatment Upcoming Encounters Date Type Department Care Team (Late st Contact Info) Description 06/03/2024 1:00 PM FACILITY MAINTENANCE MECHANIC Appointment [facility] - Rheumatology [address] [place] [address] 06/03/2024 2:00 PM FACILITY MAINTENANCE MECHANIC Office Visit [facility] - Rheumatology [address] [place] [address] Gloria Smith MD [address] [place] [phone] documented as of this encounter Visit Diagnoses Diagnosis Rheumatoid arthritis of multiple sites with negative rheumatoid factor (HCC) documented in this encounter Administered Medications Inactive Administered Medications - up to 3 most recent administrations Medication Order MAR Action Action Date Dose Rate Site tocilizumab (ACTEMRA) 800 mg in 0.9% NaCl 100 mL IVPB 800 mg, at 100 mL/hr, Intravenous, ONCE, 1 dose, On Sun11/21/17 at 1400, Stable 24hrs RT $ New Bag/Syringe 11/21/2017 2:00 PM CDT 800 mg 100 mL/hr documented in this encounter Care Teams Medical Office Receptionist Relationship Specialty Start Date End Date Tomas Hyman MD [address] [facility] [address] [place] [address] PCP - General Family Medicine 12/31/13 05/09/18 Isidro Heredia MD Rheumatology 02/09/11 documented as of this encounter
--- OUTSIDE RECORDS SUMMARY | 2024-05-03 04:08 | XMS_ITS | Encounter Summary ---
Demographics Address [address] [facility] [place] [address] Mobile Phone Home Phone Email Address [email or web address] Address [email or web address] Preferred Language Hungarian Marital Status Evangelical Affiliation Unknown Race White Ethnic Group Not or Lati no Author Organization [facility] Address [address] [place] [address] Care Team Providers Care Stable Attendant Name Role Phone Iisdro Heredia MD Unavailable [phone] Tomas Hyman MD Primary Care Provider [phone] Encounter Details Date Type Department Care Team (Late st Contact Info) Description 04/03/2017 Orders Only [facility] Medical [facility] - Rheumatology [address] [place] [address] [phone] Isidro Heredia MD [address] [place] [address] Rheumatoid arthritis involving multiple sites, unspecified rheumatoid factor presence Social History Tobacco Use Types Packs/Day Years Used Date Smoking Tobacco: Never Smokeless Tobacco: Never Alcohol Use Standard Drinks/Week Comments No 0 (1 standard drink = 0.6 oz pur e alcohol) Sex and Gender Information Value Date Recorded Sex Assigned at Not on file Gender Identity Not on file Sexual Orientation Not on file documented as of this encounter Progress Notes * Dixie Beard LPN - 04/09/2017 3:52 PM CST Sent via my chart INTERNSHIP * Isidro Heredia MD - 04/08/2017 10:07 PM CST [place] INTERNSHIP documented in this encounter Plan of Treatment Upcoming Encounters Date Type Department Care Team (Late st Contact Info) Description 06/03/2024 1:00 PM FALL INTERNSHIP Appointment [facility] - Rheumatology [address] [place] [address] [phone] 06/03/2024 2:00 PM FALL INTERNSHIP Office Visit [facility] - Rheumatology [address] [place] [address] Gloria Smith MD [address] [place] [address] [phone] documented as of this encounter Procedures Procedure Name Priority Date/Time Associated Diagnosis Comments ERYTHROCYTE SEDIMENTATION RATE Routine 04/05/2017 2:30 PM FALL INTERNSHIP Rheumatoid arthritis involving multiple sites, unspecified rheumatoid factor presence CBC W AUTO DIFFERENTIAL Routine 04/05/2017 2:30 PM FALL INTERNSHIP Rheumatoid arthritis involving multiple sites, unspecified rheumatoid factor presence COMPREHENSIVE METABOLIC PANEL Routine 04/05/2017 2:30 PM FALL INTERNSHIP Rheumatoid arthritis involving multiple sites, unspecified rheumatoid factor presence documented in this encounter Results * ERYTHROCYTE SEDIMENTATION RATE (04/05/2017 2:30 PM FALL INTERNSHIP) Erythrocyte Sedimentation Rate Westergren 4 0 - 30 mm/hr [facility] INSURANCE BILL Blood BLOOD SPECIMEN / Unknown 04/05/2017 2:30 PM FALL INTERNSHIP 04/05/2017 Narrative Resulting Agency Comment [facility] [address] [facility] ??[facility] [phone] Isidro Heredia MD LAB - HEMATOLOGY OR DERABLES [facility] INSURANCE BILL [address] [place] [address] * (ABNORMAL) COMPREHENSIVE METABOLIC PANEL (04/05/2017 2:30 PM FALL INTERNSHIP) Glucose 100(H) 65 - 99 mg/dL [facility] INSURANCE BILL BUN 21 6 - 24 mg/dL [facility] INSURANCE BILL Creatinine 0.87 0.76 - 1.27 mg/dL [facility] INSURANCE BILL eGFR by MDRD 98 >59 mL/min/1.7 3 [facility] INSURANCE BILL eGFR by MDRD 113 >59 mL/min/1.7 3 [facility] INSURANCE BILL BUN/Creatinine Ratio 24(H) 9 - 20 [facility] INSURANCE BILL Sodium 141 134 - 144 mmol/L [facility] INSURANCE BILL Potassium 4.0 3.5 - 5.2 mmol/L [facility] INSURANCE BILL Chloride 104 96 - 106 mmol/L [facility] INSURANCE BILL CO2 21 18 - 29 mmol/L [facility] INSURANCE BILL Calcium 9.2 8.7 - 10.2 mg/dL [facility] INSURANCE BILL Protein Total 6.1 6.0 - 8.5 g/dL [facility] INSURANCE BILL Albumin 4.1 3.5 - 5.5 g/dL [facility] INSURANCE BILL Globulin Total 2.0 1.5 - 4.5 g/dL [facility] INSURANCE BILL Albumin/Globulin Ratio 2.1 1.2 - 2.2 [facility] INSURANCE BILL Bilirubin Total 0.7 0.0 - 1.2 mg/dL [facility] INSURANCE BILL Alkaline Phosphatase 39 39 - 117 IU/L [facility] INSURANCE BILL AST 21 0 - 40 IU/L [facility] INSURANCE BILL ALT 26 0 - 44 IU/L [facility] INSURANCE BILL Blood BLOOD SPECIMEN / Unknown 04/05/2017 2:30 PM FALL INTERNSHIP 04/05/2017 Narrative Resulting Agency Comment [facility] ??[facility] [phone] Isidro Heredia MD LAB - CHEMISTRY ORD ERABLES [facility] INSURANCE BILL [address] [place] [address] * (ABNORMAL) CBC W AUTO DIFFERENTIAL (04/05/2017 2:30 PM FALL INTERNSHIP) WBC 6.9 3.4 - 10.8 x10E3/uL [facility] INSURANCE BILL RBC 3.75(L) 4.14 - 5.80 x10E6/uL [facility] INSURANCE BILL Hemoglobin 12.0(L) 13.0 - 17.7 g/dL [facility] INSURANCE BILL Comment:Please note refere nce interval change Hematocrit 35.5(L) 37.5 - 51.0 % [facility] INSURANCE BILL MCV 95 79 - 97 fL [facility] INSURANCE BILL MCH 32.0 26.6 - 33.0 pg [facility] INSURANCE BILL MCHC 33.8 31.5 - 35.7 g/dL [facility] INSURANCE BILL RDW 15.0 12.3 - 15.4 % [facility] INSURANCE BILL Platelet Count 151 150 - 379 x10E3/uL [facility] INSURANCE BILL Granulocytes % 74 Not Estab. % [facility] INSURANCE BILL Lymphocytes % 18 Not Estab. % [facility] INSURANCE BILL Monocytes % 6 Not Estab. % [facility] INSURANCE BILL Eosinophils % 2 Not Estab. % [facility] INSURANCE BILL Basophils % 0 Not Estab. % [facility] INSURANCE BILL Immature Cells NOT NEEDED [facility] INSURANCE BILL Comment:Ancillary determined the test is not needed Granulocytes Absolute 5.2 1.4 - 7.0 x10E3/uL [facility] INSURANCE BILL Lymphocytes Absolute 1.2 0.7 - 3.1 x10E3/uL [facility] INSURANCE BILL [...] not needed Blood BLOOD SPECIMEN / Unknown 04/05/2017 2:30 PM FALL INTERNSHIP 04/05/2017 Narrative Resulting Agency Comment [facility] [address] [place] [address] ??[facility] [phone] Isidro Heredia MD LAB - HEMATOLOGY OR DERABLES [facility] INSURANCE BILL [address] [place] [address] documented in this encounter Visit Diagnoses Diagnosis Rheumatoid arthritis involving multiple sites, unspecified rheumatoid factor presence (HCC)- Primary documented in this encounter Care Teams Stable Attendant Relationship Specialty Start Date End Date Tomas Hyman MD [address] [place] [address] PCP - General Family Medicine 12/31/13 05/09/18 Isidro Heredia MD Rheumatology 02/09/11 documented as of this encounter
--- OUTSIDE RECORDS SUMMARY | 2024-05-03 04:08 | XMS_ITS | Encounter Summary ---
Author Organization [facility] Address [address] [facility] [place] [address] Care Team Providers Care Sports Marketing Specialist Name Role Phone Isidro Heredia MD Unavailable [phone] Tomas Hyman MD Primary Care Provider [phone] Encounter Details Date Type Department Care Team (Late Contact Info) Description 03/04/2018 Orders Only [facility] - Rheumatology [address] [place] [address] Isidro Heredia MD [address] [place] [address] Encounter for long-term (current) use of [...] (Late Contact Info) Description 06/03/2024 1:00 PM CUTTER IN Appointment [facility] - Rheumatology [address] [place] [address] 06/03/2024 2:00 PM CUTTER IN Office Visit [facility] Rheumatology [address] [place] [address] Gloria Smith MD [address] [place], [place] [address] [place] [phone] Scheduled Orders Name Type Priority Associated Diagnoses Orde r Schedule CBC WITH DIFFERENTIAL Lab Routine Encounter for long-term (current) use of medications E- 3 Months for 4 Occurrences starting 03/04/2018 until 04/03/2019, 2 completed COMPREHENSIVE METABOLIC PANEL Lab Routine Encounter for long-term (current) use of medications E- 3 Months for 4 Occurrences starting 03/04/2018 until 04/03/2019, 1 completed ERYTHROCYTE SEDIMENTATION RATE Lab Routine Encounter for long-term (current) use of medications E- 3 Months for 4 Occurrences starting 03/04/2018 until 04/03/2019, 1 completed documented as of this encounter Procedures Procedure Name Priority Date/Time Associated Diagnosis Comments ERYTHROCYTE SEDIMENTATION RATE Routine 03/07/2018 12:00 PM CUTTER IN Encounter for long-term (current) use of medications CBC W AUTO DIFFERENTIAL Routine 03/07/2018 12:00 PM CUTTER IN Encounter for long-term (current) use of medications COMPREHENSIVE METABOLIC PANEL Routine 03/07/2018 12:00 PM CUTTER IN Encounter for long-term (current) use of medications [...] Resulting Agency Comment Lab Testing performed at: [facility] ??[facility] [phone] Iisdro Heredia MD LAB - HEMATOLOGY OR DERABLES Performing Organization Address City/[facility] Co de Phone Number [facility] INSURANCE BILL [address] [place] [address] * ERYTHROCYTE SEDIMENTATION RATE (03/07/2018 12:00 PM CUTTER IN) Erythrocyte Sedimentation Rate Westergren 23 0 - 30 mm/hr [facility] INSURANCE BILL Blood BLOOD SPECIMEN / Unknown 03/07/2018 12:00 PM CUTTER IN 03/07/2018 Narrative Resulting Agency Comment [facility] ??[facility] [phone] Isidro Heredia MD LAB - HEMATOLOGY OR DERABLES Performing Organization Address City/[facility]/ZIP Co de Phone Number [facility] INSURANCE BILL [address] [place] [address] * (ABNORMAL) COMPREHENSIVE METABOLIC PANEL (03/07/2018 12:00 PM CUTTER IN) Glucose 135(H) 65 - 99 mg/dL [facility] INSURANCE BILL BUN 13 6 - 24 mg/dL [facility] INSURANCE BILL Creatinine 1.02 0.76 - 1.27 mg/dL [facility] INSURANCE BILL eGFR by MDRD 82 >59 mL/min/1.7 3 [facility] INSURANCE BILL eGFR by MDRD 95 >59 mL/min/1.7 3 [facility] INSURANCE BILL BUN/Creatinine Ratio 13 9 - 20 [facility] INSURANCE BILL Sodium 142 134 - 144 mmol/L [facility] INSURANCE BILL Potassium 3.4(L) 3.5 - 5.2 mmol/L [facility] INSURANCE BILL Chloride 105 96 - 106 mmol/L [facility] INSURANCE BILL CO2 23 20 - 29 mmol/L [facility] INSURANCE BILL Calcium 8.9 8.7 - 10.2 mg/dL [facility] INSURANCE BILL Protein Total 6.1 6.0 - 8.5 g/dL [facility] INSURANCE BILL Albumin 3.8 3.5 - 5.5 g/dL [facility] INSURANCE BILL Globulin Total 2.3 1.5 - 4.5 g/dL [facility] INSURANCE BILL Albumin/Globulin Ratio 1.7 1.2 - 2.2 [facility] INSURANCE BILL Bilirubin Total 0.3 0.0 - 1.2 mg/dL [facility] INSURANCE BILL Alkaline Phosphatase 42 39 - 117 IU/L [facility] INSURANCE BILL AST 27 0 - 40 IU/L [facility] INSURANCE BILL ALT 20 0 - 44 IU/L [facility] INSURANCE BILL Blood BLOOD SPECIMEN / Unknown 03/07/2018 12:00 PM CUTTER IN 03/07/2018 Narrative Resulting Agency Comment [facility] [address] [facility] ??[facility] [phone] Isidro Heredia MD LAB - CHEMISTRY ORD ERABLES [facility] INSURANCE BILL [address] [place] [address] * (ABNORMAL) CBC WITH DIFFERENTIAL (03/07/2018 12:00 PM CUTTER IN) [facility] WBC 10.8 3.4 - 10.8 x10E3/uL [facility] INSURANCE BILL RBC 4.07(L) 4.14 - 5.80 x10E6/uL [facility] INSURANCE BILL Hemoglobin 12.3(L) 13.0 - 17.7 g/dL [facility] INSURANCE BILL Hematocrit 37.6 37.5 - 51.0 % [facility] INSURANCE BILL MCV 92 79 - 97 fL [facility] INSURANCE BILL MCH 30.2 26.6 - 33.0 pg [facility] INSURANCE BILL MCHC 32.7 31.5 - 35.7 g/dL [facility] INSURANCE BILL RDW 13.7 12.3 - 15.4 % [facility] INSURANCE BILL Platelet Count 225 150 - 379 x10E3/uL [facility] INSURANCE BILL Granulocytes % 67 Not Estab. % [facility] INSURANCE BILL Lymphocytes % 19 Not Estab. % [facility] INSURANCE BILL Monocytes % 9 Not Estab. % [facility] INSURANCE BILL Eosinophils % 4 Not Estab. % [facility] INSURANCE BILL Basophils % 1 Not Estab. % [facility] INSURANCE BILL Immature Cells NOT NEEDED [facility] INSURANCE BILL Comment:Ancillary determined the test is not needed Granulocytes Absolute 7.3(H) 1.4 - 7.0 x10E3/uL [facility] INSURANCE BILL Lymphocytes Absolute 2.0 0.7 - 3.1 x10E3/uL [facility] INSURANCE BILL Monocytes Absolute 1.0(H) 0.1 - 0.9 x10E3/uL [facility] INSURANCE BILL [...] not needed Blood BLOOD SPECIMEN / Unknown 03/07/2018 12:00 PM CUTTER IN 03/07/2018 Narrative Resulting Agency Comment [facility] [address] ??[facility] [phone] Isidro Heredia MD LAB - HEMATOLOGY OR DERABLES [facility] INSURANCE BILL [address] [place] [address] documented in this encounter Visit Diagnoses Diagnosis Encounter for long-term (current) use of medications- Primary Encounter for long-term (current) use of other medications documented in this encounter Care Teams Sports Marketing Specialist Relationship Specialty Start Date End Date Tomas Hyman MD [address] [place] [address] PCP - General Family Medicine 12/31/13 05/09/18 Isidro Heredia MD Rheumatology 02/09/11 documented as of this encounter
--- OUTSIDE RECORDS SUMMARY | 2024-05-03 04:08 | XMS_ITS | Encounter Summary ---
Author Organization [facility] Address [address] [facility] [place] [address] Care Team Providers Care Armored Machine Operator Name Role Phone Isidro Heredia MD Unavailable [phone] Tomas Hyman MD Primary Care Provider [phone] Reason for Visit * Treatment (Routine) - Closed Specialty Diagnoses / Procedures Referred By Lawrence shah Referred To Contact Infusion Therapy Nurse Diagnoses Rheumatoid arthritis without rheumatoid factor, multiple sites (HCC) Procedures NM INFLIXIMAB INJECTION Isidro Heredia MD [address] [place] [address] [address] Referral ID Status Reason Start Date Expiration Date Visits Re quested Visits Authorized [id number] Closed 02/28/2018 04/29/2018 1 6 Encounter Details Date Type Department Care Team (Late st Contact Info) Description 03/07/2018 10:54 AM OPERATIONS TECH - 03/07/2018 11:59 PM OPERATIONS TECH Hospital Encounter [facility] Medical [facility] - Rheumatology [address] [place] [address] Isidro Heredia MD [address] [place] [address] Discharge Disposition: Home or Self [...] Sign Reading Time Taken Comments Blood Pressure 133/81 03/07/2018 11:21 AM OPERATIONS TECH Pulse 85 03/07/2018 11:21 AM OPERATIONS TECH Temperature 36.8 ??C (98.3 ??F) 03/07/2018 11:[address] Respiratory Rate 18 03/07/2018 11:21 AM OPERATIONS TECH Oxygen Saturation - - Inhaled Oxygen Concentration - - Weight 103 kg (227 lb) 03/07/2018 11:21 AM OPERATIONS TECH Height - - Body Mass Index 32.57 01/11/2016 3:12 PM CDT documented in this encounter Discharge Instructions * Discharge Instructions* Jody Sahu RN - 03/07/2018 12:07 PM OPERATIONS TECH [place] Rheumatology Post Infusion instructions You have received [...] rash or breathing problems please call your [facility] Rheumatology physician for further instructions. While most problems that occur around the time of an infusion are very mild and not dangerous, they should not be ignored. Sunday through Sunday 9-5 call the office at [phone] After hours or on the weekend call the exchange at [phone] If you have had lab work done [...] Hospital as your provider. Jody Sahu RN ATIONS TECH documented in this encounter Medications at Time [...] Progress Notes * Jody Sahu RN - 03/07/2018 11:46 AM CST JOSE Deng [id number] 03/07/2018 Diagnosis: Rheumatoid arthritis without rheumatoid factor, multiple sites [M06.09]. Pt denies symptoms of infection or antibiotic use, no open wounds, or recent surgery, or plans for surgery in the next couple of weeks. Pt is aware that we use the 0-10 pain scale to assess discomfort. 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 BP 133/81 Pulse 85 Temp 98.3 ??F Resp 18 Wt 103 kg (227 lb) BMI 32.57 kg/m2 @ MEDICATIONS FOR CURRENT ENCOUNTER: ?? CONTINUOUS MEDICATIONS: ?? inFLIXimab (REMICADE) 300 mg in 0.9% NaCl 250 mL infusion, Intravenous, Continuous ?? Number of 24 gauge 3/4 inch placed in Left hand ?? 1 attempt(s). Patient monitored throughout procedure. Tolerated well? Yes Next treatment? 2 weeks This was the patient's first remicade infusion after stopping actemra. Pt able to complete the infusion without any symptoms hypersensitivity. Jody Sahu RN ATIONS TECH documented in this encounter Plan of Treatment Upcoming Encounters Date Type Department Care Team (Late st Contact Info) Description 06/03/2024 1:00 PM OPERATIONS TECH Appointment [facility] - Rheumatology [address] [place] [address] [phone] 06/03/2024 2:00 PM OPERATIONS TECH Office Visit [facility] - Rheumatology [address] [place] [address] [phone] Gloria Smith MD [address] [place] [phone] documented as of this encounter Visit [...] 10-250 mL/hr, Intravenous, CONTINUOUS, Starting on Gabriela 03/07/18 at 1130, Until Gabrieal 03/07/18 at 1429, Refrigerate. Use with in-line filter., Infuse over [...] Use with in-line filter. $ New Bag/Syringe 03/07/2018 11:35 AM OPERATIONS TECH 300 mg 10 mL/hr documented in this encounter Care Teams Armored Machine Operator Relationship Specialty Start Date End Date Tomas Hyman MD [address] [facility] [address] [place] [address] PCP - General Family Medicine 12/31/13 05/09/18 Isidro Heredia MD Rheumatology 02/09/11 documented as of this encounter
--- OUTSIDE RECORDS SUMMARY | 2024-05-03 04:08 | XMS_ITS | Encounter Summary ---
Author Organization [facility] Address [address] [place] [address] Care Team Providers Care Boat Washer Name Role Phone Isidro Heredia MD Unavailable [phone] Tomas Hyman MD Primary Care Provider [phone] Reason for Visit * Treatment (Routine) - Closed Specialty Diagnoses / Procedures Referred By Lawrence shah Referred To Contact Infusion Therapy Nurse Diagnoses Rheumatoid arthritis without rheumatoid factor, multiple sites (HCC) Procedures MD INJECTION TOCILIZUMAB 1 MG Isidro Heredia MD [address] [facility] [place] [address] [address] Referral ID Status Reason Start Date Expiration Date Visits Re quested Visits Authorized [id number] Closed 08/07/2016 04/29/2017 1 12 Encounter Details Date Type Department Care Team (Late st Contact Info) Description 01/04/2017 2:00 PM CDT - 01/04/2017 11:59 PM CDT Hospital Encounter [facility] Medical [facility] - Rheumatology [address] [place] [address] Isidro Heredia MD [address] [facility] [place] [address] Discharge Disposition: Home or Self [...] Sign Reading Time Taken Comments Blood Pressure 140/88 01/04/2017 2:17 PM CDT Pulse 78 01/04/2017 2:17 PM CDT Temperature 36.6 ??C (97.9 ??F) 01/04/2017 2:17 PM CD T Respiratory Rate 18 01/04/2017 2:17 PM CDT Oxygen Saturation - - Inhaled Oxygen Concentration - - Weight 107 kg (236 lb) 01/04/2017 2:17 PM CDT Height - - Body Mass Index 33.86 01/11/2016 3:12 PM CDT documented in this encounter Discharge Instructions * Discharge Instructions* Jody Sahu RN - 01/04/2017 2:26 PM CDT ID Rheumatology Post Infusion instructions You [...] or breathing problems please call your [facility] Rheumatology physician for further instructions. While most problems that occur around the time of an infusion are very mild and not dangerous, they should not be ignored. Sunday through 01-02 call the office at [phone] After hours or on the weekend call the exchange at [phone] If you have had lab work done [...] [facility] as your provider. Jody Sahu RN [...] times daily 180 Tab 2 09/21/2016 06/19/2017 NEXIUM 40 MG capsule TAKE 1 CAPSULE DAILY BEFORE BREAKFAST 90 Cap 1 06/08/2016 02/02/2017 oxyCODONE-acetaminophe n (PERCOCET) 5-325 MG tablet Take [...] Progress Notes * Jody Sahu RN - 01/04/2017 2:40 PM CDT JOSE Deng [id number] 01/04/2017 Diagnosis: Rheumatoid arthritis without rheumatoid factor, multiple sites [M06.09]. Pt denies symptoms of infection or antibiotic use, no open wounds, or recent surgery, or plans for surgery in the next couple of weeks. Pt is aware that we use the 0-10 pain scale to assess discomfort. 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 BP 140/88 Pulse 78 Temp 97.9 ??F Resp 18 Wt 107 [...] st Contact Info) Description 06/03/2024 1:00 PM ELECTRON BEAM WELDING MACHINE OPERATOR Appointment [facility] - Rheumatology [address] [place] [address] [phone] 06/03/2024 2:00 PM ELECTRON BEAM WELDING MACHINE OPERATOR Office Visit [facility] - Rheumatology [address] [place] [address] Gloria Smith MD [address] [place] [phone] documented as of this encounter Visit Diagnoses Diagnosis Rheumatoid arthritis of multiple sites with negative rheumatoid factor (HCC) documented in this encounter Administered Medications Inactive Administered Medications - up to 3 most recent administrations Medication Order MAR Action Action Date Dose Rate Site Tocilizumab 800 mg in 0.9% NaCl 100 mL IVPB 800 mg, Intravenous, ONCE, 1 dose, On Gabriela 01/04/17 at 1430, Stable 24hrs RT $ Given 01/04/2017 2:30 PM CDT 800 mg documented in this encounter Care Teams Boat Washer Relationship Specialty Start Date End Date Tomas Hyman MD [address] [facility] [address] [place] [address] PCP - General Family Medicine 12/31/13 05/09/18 Isidro Heredia MD Rheumatology 02/09/11 documented as of this encounter
--- OUTSIDE RECORDS SUMMARY | 2024-05-03 04:08 | XMS_ITS | Encounter Summary ---
Author Organization [facility] Address [address] [facility] [place] [address] Care Team Providers Care Comber Fixer Name Role Phone Isidro Heredia MD Unavailable [phone] Tomas Hyman MD Primary Care Provider [phone] Encounter Details Date Type Department Care Team (Late Contact Info) Description 09/03/2017 Orders Only [facility] - Rheumatology [address] [place] [address] Isidro Heredia MD [address] [place] [address] Social History Tobacco Use Types Packs/Day [...] (Late Contact Info) Description 06/03/2024 1:00 PM FISHERMAN HELPER Appointment [facility] - Rheumatology [address] [place] [address] 06/03/2024 2:00 PM FISHERMAN HELPER Office Visit [facility] - Rheumatology [address] [place] [address] Gloria Smith MD [address] [place] [phone] documented as of this encounter Visit Diagnoses Not on filedocumented in this encounter Care Teams Comber Fixer Relationship Specialty Start Date End Date Tomas Hyman MD [address] [facility] [address] [place] [address] PCP - General Family Medicine 12/31/13 05/09/18 Isidro Heredia MD Rheumatology 02/09/11 documented as of this encounter
--- OUTSIDE RECORDS SUMMARY | 2024-05-03 04:08 | XMS_ITS | Encounter Summary ---
Author Organization [facility] Address [address] [facility] [place] [address] Care Team Providers Care Wildlife Policy Professional Name Role Phone Isidro Heredia MD Unavailable [phone] Tomas Hyman MD Primary Care Provider [phone] Reason for Visit * Reason Onset Date Comments Appointment 01/14/2018 Encounter Details Date Type Department Care Team (Late st Contact Info) Description 01/14/2018 Telephone [facility] Medical [facility] - Rheumatology [address] [place] [address] Isidro Heredia MD [address] [place] [address] Appointment Social History Tobacco Use Types [...] * Telephone Encounter - Carey Loza - 01/14/2018 8:27 AM CDT Left message on cell phone to call me to reschedule appointmet * Telephone Encounter - Carey Loza - 01/14/2018 8:25 AM CDT T/t to return patient call to reschedule appointment but could not leave a message documented in this encounter Plan of Treatment Upcoming Encounters Date Type Department Care Team (Late st Contact Info) Description 06/03/2024 1:00 PM HAND OR MACHINE PASTER Appointment [facility] - Rheumatology [address] [place] [address] 06/03/2024 2:00 PM HAND OR MACHINE PASTER Office Visit [facility] - Rheumatology [address] [place] [address] Gloria Smith MD [address] [place] [phone] documented as of this encounter Visit Diagnoses Not on filedocumented in this encounter Care Teams Wildlife Policy Professional Relationship Specialty Start Date End Date Tomas Hyman MD [address] [facility] [address] [place] [address] PCP - General Family Medicine 12/31/13 05/09/18 Isidro Heredia MD Rheumatology 02/09/11 documented as of this encounter
--- OUTSIDE RECORDS SUMMARY | 2024-05-03 04:08 | XMS_ITS | Encounter Summary ---
Author Organization [facility] Address [address] [facility] [place] [address] Care Team Providers Care Varnish Blender Name Role Phone Isidro Heredia MD Unavailable [phone] Tomas Hyman MD Primary Care Provider [phone] Reason for Visit * Treatment (Routine) - Closed Specialty Diagnoses / Procedures Referred By Lawrence shah Referred To Contact [place] [id number] [address] [facility] Pain Care [address] [place] [address] Referral ID Status Reason Start Date Expiration Date Visits Re quested Visits Authorized [id number] Closed 03/01/2017 08/28/2017 1 3 Encounter Details Date Type Department Care Team (Latest Contact Info) Description 03/01/2017 10:03 AM CDT - 03/01/2017 10:04 AM CDT Hospital Encounter [facility] Pain Care [id number] [place] [address] [place] [id number] [address] Discharge Disposition: Home or Self [...] st Contact Info) Description 06/03/2024 1:00 PM CUFF MAKER Appointment [facility] - Rheumatology [address] [place] [address] [phone] 06/03/2024 2:00 PM CUFF MAKER Office Visit [facility] - Rheumatology [address] [place] [address] Gloria Smith MD [address] [place] [phone] documented as of this encounter Visit Diagnoses Not on filedocumented in this encounter Care Teams Varnish Blender Relationship Specialty Start Date End Date Tomas Hyman MD [address] [facility] [address] [place] [address] PCP - General Family Medicine 12/31/13 05/09/18 Isidro Heredia MD Rheumatology 02/09/11 documented as of this encounter
--- OUTSIDE RECORDS SUMMARY | 2024-05-03 04:08 | XMS_ITS | Encounter Summary ---
Author Organization [facility] Address [address] [facility] [place] [address] Care Team Providers Care Spanish Language Lecturer Name Role Phone Isidro Heredia MD Unavailable Tomas Hyman MD Primary Care Provider [phone] Encounter Details Date Type Department Care Team (Late Contact Info) Description 06/12/2017 Orders Only [facility] - Rheumatology [address] [place] [address] Isidro Heredia MD [address] [place] [address] Rheumatoid arthritis involving multiple sites, unspecified [...] (Late Contact Info) Description 06/03/2024 1:00 PM TIG WELDER Appointment [facility] - Rheumatology [address] [place] [address] 06/03/2024 2:00 PM TIG WELDER Office Visit [facility] Rheumatology [address] [place] [address] Gloria Smith MD [address] [place], [place] [address], [place] [address] documented as of this encounter Procedures Procedure Name Priority Date/Time Associated Diagnosis Comments ERYTHROCYTE SEDIMENTATION RATE Routine 08/01/2017 1:00 PM CDT Rheumatoid arthritis involving multiple sites, unspecified rheumatoid factor presence CBC W AUTO DIFFERENTIAL Routine 08/01/2017 1:00 PM CDT Rheumatoid arthritis involving multiple sites, unspecified rheumatoid factor presence COMPREHENSIVE METABOLIC PANEL Routine 08/01/2017 1:00 PM CDT Rheumatoid arthritis involving multiple sites, unspecified rheumatoid factor presence documented in this encounter Results * (ABNORMAL) ERYTHROCYTE SEDIMENTATION RATE (08/01/2017 1:00 PM CDT) Erythrocyte Sedimentation Rate Westergren 37(H) 0 - 30 mm/hr [facility] INSURANCE BILL Blood BLOOD SPECIMEN / Unknown 08/01/2017 1:00 PM CDT 08/01/2017 Narrative Resulting Agency Comment [facility] [address] [facility] ??[facility] [phone] Isidro Heredia MD LAB - HEMATOLOGY OR DERABLES [facility] INSURANCE BILL [address] [place] [address] * (ABNORMAL) COMPREHENSIVE METABOLIC PANEL (08/01/2017 1:00 [...] INSURANCE BILL Blood BLOOD SPECIMEN / Unknown 08/01/2017 1:00 PM CDT 08/01/2017 Narrative Resulting Agency Comment [facility] [address] ??[facility] [phone] Isidro Heredia MD LAB - CHEMISTRY ORD ERABLES [facility] INSURANCE BILL [address] [place] [address] * (ABNORMAL) CBC W AUTO DIFFERENTIAL (08/01/2017 [...] not needed Blood BLOOD SPECIMEN / Unknown 08/01/2017 1:00 PM CDT 08/01/2017 Narrative Resulting Agency Comment [facility] [address] [facility] ??[facility] [phone] Isidro Heredia MD LAB - HEMATOLOGY OR DERABLES [facility] INSURANCE BILL [address] [place] [address] documented in this encounter Visit Diagnoses Diagnosis Rheumatoid arthritis involving multiple sites, unspecified rheumatoid factor presence (HCC)- Primary documented in this encounter Care Teams Spanish Language Lecturer Relationship Specialty Start Date End Date Tomas Hyman MD [address] [facility] [address] [place] [address] PCP - General Family Medicine 12/31/13 05/09/18 Isidro Heredia MD Rheumatology 02/09/11 documented as of this encounter
--- OUTSIDE RECORDS SUMMARY | 2024-05-03 04:08 | XMS_ITS | Encounter Summary ---
Author Organization [facility] Address [address] [facility] [place] [address] Care Team Providers Care Mash Filter Operator Name Role Phone Isidro Heredia MD Unavailable [phone] Tomas Hyman MD Primary Care Provider [phone] Encounter Details Date Type Department Care Team (Late st Contact Info) Description 03/07/2018 11:15 AM PAD MACHINE OFFBEARER Office Visit [facility] Medical [facility] - Rheumatology [address] [place] [address] [phone] Isidro Heredia MD [address] [place] [address] Subacromial bursitis (Primary Dx); Rheumatoid arthritis of multiple sites with negative rheumatoid factor (HCC); Abnormal LFTs Social History Tobacco Use Types Packs/Day Years [...] Time Taken Comments Blood Pressure 133/81 03/07/2018 11:38 AM PAD MACHINE OFFBEARER Pulse 85 03/07/2018 11:38 AM PAD MACHINE OFFBEARER Temperature - - Respiratory Rate - - Oxygen Saturation - - Inhaled Oxygen Concentration - - Weight 103 kg (227 lb) 03/07/2018 11:38 AM PAD MACHINE OFFBEARER Height - - Body Mass Index 32.57 01/11/2016 3:12 PM CDT documented in this encounter Progress Notes * Isidro Heredia MD - 03/07/2018 12:13 PM CST Subjective: Chalino Deng 57 y.o. male is here for No chief complaint on file. HPI: Missed 2 ov due to cataract Surgery then diverticulitis so actemra was switched to remicade On mtx pred 10mg am 5 mg pm For ra And percocet For chronic pain Pain Level 8/10 ankles Shoulders Am stiffness 3 hrs Global 8/10 Fatigue yes Medication Side Effects none BP Readings from Last 2 Encounters: 03/07/18 133/81 03/07/18 133/81 Wt Readings from Last 2 Encounters: 03/07/18 103 kg (227 lb) 03/07/18 103 kg (227 lb) Temp Readings from Last 2 Encounters: 03/07/18 98.3 ??F (36.8 ??C) 12/19/17 97.8 ??F (36.6 ??C) Pulse Readings from Last 2 Encounters: 03/07/18 85 03/07/18 85 Current Outpatient Prescriptions on File Prior to Visit Medication Sig Dispense Refill ??? Multiple Vitamins-Minerals (OCUVITE ADULT 50+ PO) Take 1 tablet by mouth every other day ??? gabapentin (NEURONTIN) 300 MG capsule 1 capsule 2 times daily 180 capsule 1 ??? alendronate (FOSAMAX) 70 MG tablet TAKE 1 TABLET EVERY 7 DAYS BEFORE A MEAL IN THE MORNING WITHFULL GLASS OF WATER ON AN EMPTY STOMACH AND REMAIN UPRIGHT FOR 30 MINUTES 12 tablet 2 ??? naproxen (NAPROSYN) 500 MG tablet 1 tablet 2 times daily 180 tablet 2 ??? carvedilol (COREG) 12.5 MG tablet TAKE 1 TABLET TWICE A DAY WITH MORNING AND EVENING MEALS (NEED TO START GETTING FROM PRIMARY CARE PHYSICIAN) 180 tablet 2 ??? pantoprazole EC (PROTONIX) 40 MG tablet Take 1 tablet by mouth once daily 90 tablet 3 ??? methotrexate 2.5 MG tablet TAKE 6 TABLETS EVERY 7 DAYS 72 tablet 2 ??? predniSONE (DELTASONE) 10 MG tablet TAKE 1 TABLET TWICE A DAY (Patient taking differently: 5 mgtwice daily) 180 tablet 1 ??? hydroCHLOROthiazide (HYDRODIURIL) 25 MG tablet Take 25 mg by mouth once daily ??? ferrous sulfate 325 (65 FE) MG tablet Take 325 mg by mouth once daily ??? REFRESH PLUS 0.5 % ophthalmic solution Instill 1 Drop into both eyes every 3 hours as needed ??? atorvastatin (LIPITOR) 40 MG tablet Take 40 mg by mouth at bedtime ??? KRILL OIL PO Take 500 mg by mouth once daily ??? aspirin EC (ECOTRIN) 81 MG tablet Take 1 Tab by mouth once daily 90 Tab 3 ??? Magnesium Citrate 100 MG TABS Take 1 tablet by mouth every other day ??? Multiple Vitamin (MULTI-VITAMIN PO) Take 1 Tab by mouth once daily ??? Ebnoqmeasre-Fvmvjqzau-Rhn C-Mn (GLUCOSAMINE CHONDR 1500 COMPLX PO) Take 1 Tab by mouth once daily ??? ZYRTEC 10 MG TABS Take 10 mg by mouth once daily. Seasonal (nov. ??? InFLIXimab (REMICADE IV) 300 mg by Intravenous route as directed Every 8 weeks No current facility-administered medications on file prior [...] cough, eye irritation Systems reviewed genl Heart Lungs Objective: General Appearance Physical Exam: BP 133/81 Pulse 85 Wt 103 kg (227 lb) BMI 32.57 kg/m2 Head: perrla, eyes no irritation, vision and hearing intact, no oral ulcers, tongue normal, throat clear Neck:supple, no bruits, adenopathy Chest: clear, no rales, rhonchi or wheezes. Heart nsr. No S3,S4, or murmurs Abdomen:soft, no masses or tenderness, no organomegaly Genitalia, Groin, Buttocks: Back: no abnormal curvature, tenderness, or muscle spasm Extremities: No edema, cyanosis, or rash RUE: 9/TJ, 6/SJ, 0/muscle tenderness or weakness LUE: 9/TJ, 6/SJ, 0/muscle tenderness or weakness RLE: 1/TJ, 0/SJ, 0/muscle tenderness or weakness knees LLE: 1/TJ, 0/SJ, 0/muscle tenderness or weakness Assessment: Encounter Diagnoses Name Primary? Subacromial bursitis Yes ??? Rheumatoid arthritis of multiple sites with negative rheumatoid factor ??? Abnormal LFTs poorly Controlled ra and Chronic Pain Same meds Steroid injection For bursitis Plan: Plan Orders Placed This Encounter ??? DC DRAIN/INJECT LARGE JOINT/BURSA ??? DISCONTD: oxyCODONE-acetaminophen (PERCOCET) 5-325 MG tablet Sig: Take 1 tablet by mouth every 6 hours as needed for Pain Dx: 714.0 RA Earliest Fill Date: 03/07/18 Dispense: 120 tablet Refill: 0 ??? oxyCODONE-acetaminophen (PERCOCET) 5-325 MG tablet Sig: Take 1 tablet by mouth every 6 hours as needed for Pain Dx: 714.0 RA Dispense: 120 tablet Refill: 0 ??? lidocaine hcl (PF) (XYLOCAINE MPF) 2 % injection ??? triamcinolone acetonide (KENALOG-40) injection 80 mg Under sterile condition, 2 cc's of tac with 1cc 2% Lidocaine were injected in the left shoulder Subacromial bursa . 0 cc's of synovial fluid were aspirated. Patient tolerated procedure well without complications. Follow up in office in 8 weeks MACHINE OFFBEARER documented in this encounter Plan of Treatment Upcoming Encounters Date Type Department Care Team (Late st Contact Info) Description 06/03/2024 1:00 PM PAD MACHINE OFFBEARER Appointment [facility] - Rheumatology [address] [place] [address] [phone] 06/03/2024 2:00 PM PAD MACHINE OFFBEARER Office Visit [facility] - Rheumatology [address] [place] [address] Gloria Smith MD [address] [place] [phone] documented as of this encounter Visit Diagnoses Diagnosis Subacromial bursitis- Primary Other specified disorders of rotator cuff syndrome of shoulder and allied disorders Rheumatoid arthritis of 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 $ Given 03/07/2018 3:51 PM PAD MACHINE OFFBEARER 80 mg Left Shoulder documented in this encounter Care Teams Mash Filter Operator Relationship Specialty Start Date End Date Tomas Hyman MD [address] [facility] [address] [place] [address] PCP - General Family Medicine 12/31/13 05/09/18 Isidro Heredia MD Rheumatology 02/09/11 documented as of this encounter
--- OUTSIDE RECORDS SUMMARY | 2024-05-03 04:08 | XMS_ITS | Encounter Summary ---
Author Organization [facility] Address [address] [facility] [place] [address] Care Team Providers Care Time Clock Mechanic Name Role Phone Isidro Heredia MD Unavailable [phone] Tomas Hyman MD Primary Care Provider [phone] Encounter Details Date Type Department Care Team (Late st Contact Info) Description 03/08/2017 3:56 PM WHEAT WASHER - 03/08/2017 11:59 PM [facility] Hospital Encounter [facility] - Medical Imaging [address] [place] [address] Isidro Heredia MD [address] [place] [address] Discharge Disposition: Home or Self Care [...] 1 (one) tablet by mouth at bedtime Glucosamine-Chondroit -Vit C-Mn (GLUCOSAMINE CHONDR 1500 COMPLX [...] times daily 180 Tab 2 09/21/2016 06/19/2017 oxyCODONE-acetaminoph en (PERCOCET) 5-325 MG tablet Take 1 tablet by mouth every 6 hours as needed for Pain Dx: 714.0 RA 120 tablet 03/08/2017 04/05/2017 pantoprazole EC (PROTONIX) 40 MG tablet Take [...] st Contact Info) Description 06/03/2024 1:00 PM WHEAT WASHER Appointment [facility] - Rheumatology [address] [place] [address] [phone] 06/03/2024 2:00 PM WHEAT WASHER Office Visit [facility] - Rheumatology [address] [place] [address] [phone] Gloria Smith MD [address] [place] [phone] documented as of this encounter Procedures Procedure Name Priority Date/Time Associated Diagnosis Comments XR ANKLE BILAT 2VW Routine 03/08/2017 4: 07 PM WHEAT WASHER Chronic pain syndrome documented in this encounter Results * XR ANKLE BILAT 2 VIEWS (03/08/2017 4:07 PM WHEAT WASHER) Anatomical Region Laterality Modality Ankle / Foot, Lower Extremity Ra diographic Imaging 03/08/2017 4:14 PM WHEAT WASHER Impressions 03/08/2017 4:15 PM WHEAT WASHER No fracture. Narrative 03/08/2017 4:15 PM WHEAT WASHER Bilateral ankles 2 views INDICATION: Ankle pain [...] fracture. Isidro Heredia MD DIAGNOSTIC IMAGING ORDERABLES documented in this encounter Visit Diagnoses Diagnosis Chronic pain syndrome documented in this encounter Care Teams Time Clock Mechanic Relationship Specialty Start Date End Date Tomas Hyman MD [address] [place] [address] PCP - General Family Medicine 12/31/13 05/09/18 Isidro Heredia MD Rheumatology 02/09/11 documented as of this encounter
--- OUTSIDE RECORDS SUMMARY | 2024-05-03 04:08 | XMS_ITS | Encounter Summary ---
Author Organization [facility] Address [address] [facility] [place] [address] Care Team Providers Care Business Development Executive Name Role Phone Isidro Heredia MD Unavailable [phone] Tomas Hyman MD Primary Care Provider [phone] Reason for Visit * Reason Comments Refill Request Encounter Details Date Type Department Care Team (Late Contact Info) Description 05/13/2017 Refill [facility] - Rheumatology [address] [place] [address] Isidro Heredia MD [address] [place] [address] Refill Request Social History Tobacco Use [...] (Late Contact Info) Description 06/03/2024 1:00 PM RESEARCH PROFESSOR OF BIOSTATISTICS Appointment [facility] - Rheumatology [address] [place] [address] 06/03/2024 2:00 PM RESEARCH PROFESSOR OF BIOSTATISTICS Office Visit [facility] Rheumatology [address] [place] [address] Gloria Smith MD [address] [place], [place] [address], [place] [address] documented as of this encounter Visit Diagnoses Not on filedocumented in this encounter Care Teams Business Development Executive Relationship Specialty Start Date End Date Tomas Hyman MD [address] [place] [address] PCP - General Family Medicine 12/31/13 05/09/18 Isidro Heredia MD Rheumatology 02/09/11 documented as of this encounter
--- OUTSIDE RECORDS SUMMARY | 2024-05-03 04:08 | XMS_ITS | Encounter Summary ---
Author Organization [facility] Address [address] [facility] [place] [address] Care Team Providers Care Noodle Press Operator Name Role Phone Isidro Heredia MD Unavailable [phone] Tomas Hyman MD Primary Care Provider [phone] Reason for Visit * Reason Onset Date Comments MEDICATION REFILL 11/21/2017 Encounter Details Date Type Department Care Team (Late Contact Info) Description 11/21/2017 Refill [facility] - Rheumatology [address] [place] [address] Isidro Heredia MD [address] [place] [address] MEDICATION REFILL Social History Tobacco Use [...] (Late Contact Info) Description 06/03/2024 1:00 PM INSULATION MACHINE OPERATOR Appointment [facility] - Rheumatology [address] [place] [address] 06/03/2024 2:00 PM INSULATION MACHINE OPERATOR Office Visit [facility] - Rheumatology [address] [place] [address] Gloria Smith MD [address] [place] [phone] documented as of this encounter Visit Diagnoses Not on filedocumented in this encounter Care Teams Noodle Press Operator Relationship Specialty Start Date End Date Tomas Hyman MD [address] [place] [address] PCP - General Family Medicine 12/31/13 05/09/18 Isidro Heredia MD Rheumatology 02/09/11 documented as of this encounter
--- OUTSIDE RECORDS SUMMARY | 2024-05-03 04:08 | XMS_ITS | Encounter Summary ---
Author Organization [facility] Address [address] [facility] [place] [address] Care Team Providers Care Infrastructure Administrator Name Role Phone Isidro Heredia MD Unavailable [phone] Tomas Hyman MD Primary Care Provider [phone] Reason for Visit * Reason Comments Refill Request Encounter Details Date Type Department Care Team (Late Contact Info) Description 06/17/2017 Refill [facility] - Rheumatology [address] [place] [address] Isidro Heredia MD [address] [place] [address] Refill Request Social History Tobacco Use [...] (Late Contact Info) Description 06/03/2024 1:00 PM HARNESS MAKER Appointment [facility] - Rheumatology [address] [place] [address] 06/03/2024 2:00 PM HARNESS MAKER Office Visit [facility] Rheumatology [address] [place] [address] Gloria Smith MD [address] [place], [place] [address], [place] [address] documented as of this encounter Visit Diagnoses Not on filedocumented in this encounter Care Teams Infrastructure Administrator Relationship Specialty Start Date End Date Tomas Hyman MD [address] [place] [address] PCP - General Family Medicine 12/31/13 05/09/18 Isidro Heredia MD Rheumatology 02/09/11 documented as of this encounter
--- OUTSIDE RECORDS SUMMARY | 2024-05-03 04:08 | XMS_ITS | Encounter Summary ---
Author Organization [facility] Address [address] [facility] [place] [address] Care Team Providers Care Decorator Mannequin Name Role Phone Isidro Heredia MD Unavailable [phone] Tomas Hyman MD Primary Care Provider Reason for Visit * Reason Onset Date Comments Follow-up 02/26/2018 Encounter Details Date Type Department Care Team (Late Contact Info) Description 02/26/2018 Telephone [facility] Medical [facility] - Rheumatology [address] [place] [address] Isidro Heredia MD [address] [place] [address] Follow-up Social History Tobacco Use Types Packs/Day Years [...] * Telephone Encounter - Carey Loza - 02/26/2018 1:32 PM CDT Returned patients call need to have some clarification on the voice mail he left me. documented in this encounter Plan of Treatment Upcoming Encounters Date Type Department Care Team (Late st Contact Info) Description 06/03/2024 1:00 PM COMBINE DRIVER Appointment [facility] - Rheumatology [address] [place] [address] [phone] 06/03/2024 2:00 PM COMBINE DRIVER Office Visit [facility] - Rheumatology [address] [place] [address] [phone] Gloria Smith MD [address] [place] [phone] documented as of this encounter Visit Diagnoses Not on filedocumented in this encounter Care Teams Decorator Mannequin Relationship Specialty Start Date End Date Tomas Hyman MD [address] [facility] [address] [place] [address] PCP - General Family Medicine 12/31/13 05/09/18 Isidro Heredia MD Rheumatology 02/09/11 documented as of this encounter
--- OUTSIDE RECORDS SUMMARY | 2024-05-03 04:08 | XMS_ITS | Encounter Summary ---
Author Organization [facility] Address [address] [place] [address] Care Team Providers Care Upkeep Worker Name Role Phone Isidro Heredia MD Unavailable [phone] Tomas Hyman MD Primary Care Provider [phone] Encounter Details Date Type Department Care Team (Latest Contact Info) Description 02/22/2017 10:13 AM CDT - 02/22/2017 11:59 PM CDT Hospital Encounter [facility] Pain [facility] [address] [place] [address] [place] [address] [place] [address] Discharge Disposition: Home or Self Care Social [...] Sign Reading Time Taken Comments Blood Pressure 145/90 02/22/2017 11:01 AM CDT Pulse 82 02/22/2017 11:01 AM CDT Temperature - - Respiratory Rate 16 02/22/2017 11:01 AM CDT Oxygen Saturation 96% 02/22/2017 11:01 AM CDT Inhaled Oxygen Concentration - - Weight - - Height - - Body Mass Index - - documented in this encounter Discharge Instructions * Patient Instructions* Manisha Sierra RN - 02/22/2017 10:[address] [facility] Pain Discharge Instructions Selective [...] headache, or any other problems, please call [phone] or after hours callDr. Mirza at [phone] and tell them your physician's name. The exchange will alert the physician local telephone operator. If sedation is given: No sedation given. For Your Next Visit: No additional instructions. Other Instructions: May remove band-aid in 12 Hours. Return in one week for TFE#2. documented in this encounter Medications at Time [...] Progress Notes * Alejandro Mirza MD - 02/22/2017 10:20 AM CDT History and physical completed on 02/08/2017. Was reviewed today and no changes noted. documented in this encounter Plan of Treatment Upcoming Encounters Date Type Department Care Team (Late st Contact Info) Description 06/03/2024 1:00 PM COPY LATHE OPERATOR Appointment [facility] - Rheumatology [address] [place] [address] 06/03/2024 2:00 PM COPY LATHE OPERATOR Office Visit [facility] - Rheumatology [address] [place] [address] Gloria Smith MD [address] [place] [phone] documented as of this encounter Procedures Procedure Name Priority Date/Time Associated Diagnosis Comments PAIN MANAGEMENT PROCEDURE TIME Routine 02/22/2017 10:34 AM CDT Low back pain, unspecified back pain laterality, unspecified chronicity, with sciatica presence unspecified documented in this encounter Results * PAIN MANAGEMENT PROCEDURE TIME (02/22/2017 10:34 AM CDT) Anatomical Region Laterality Modality X-Ray Angiograph y Narrative 03/01/2017 12:21 PM CDT Alejandro Mirza MD ? 03/01/2017 12:21 PM Right L5 & S1 Transforaminal Epidural Injection Patient Name: Chalino Deng ?Provider: Alejandro Mirza MD Date of : 1960 ?Date: 02/22/2017 PCP: Tomas Hyman MD Allergies: Allergies [...] ? Multiple Vitamin (MULTI-VITAMIN PO) ? ? Jiylxxgiynl-Alauitbzb-Vqo C-Mn (GLUCOSAMINE CHONDR 1500 COMPLX PO) ? [...] identified, and marked by Dr. Mirza. ??Responsible dumpcart driver is not needed due to the [...] documented in this encounter Visit Diagnoses Diagnosis Low back pain, unspecified back pain laterality, unspecified chronicity, with sciatica presence unspecified documented in this encounter Administered Medications Inactive Administered Medications - up to 3 most recent administrations Medication Order MAR Action Action Date Dose Rate Site dexamethasone (DECADRON) injection 10 mg 10 mg, Intravenous, ONCE, 1 dose, On Gabriela 02/22/17 at 1045 $ Admin. by Other Provider 02/22/2017 10:34 AM CDT 10 mg iohexol (OMNIPAQUE 240) contrast Intravenous, CONTRAST ONCE, Starting on Gabriela 02/22/17 at 1033, Until 02/23/17 at 0118 $ Given - Contrast 02/22/2017 10:34 AM CDT 3 mL lidocaine (XYLOCAINE MPF) 1 % injection Infiltration, ONCE, 1 dose, On Gabriela 02/22/17 at 1045 $ Admin. by Other Provider 02/22/2017 10:34 AM CDT 5 mg documented in this encounter Care Teams Upkeep Worker Relationship Specialty Start Date End Date Tomas Hyman MD [address] [facility] [address] [place] [address] PCP - General Family Medicine 12/31/13 05/09/18 Isidro Heredia MD Rheumatology 02/09/11 documented as of this encounter
--- OUTSIDE RECORDS SUMMARY | 2024-05-03 04:08 | XMS_ITS | Encounter Summary ---
Author Organization [facility] Address [address] [place] [address] Care Team Providers Care Antiquer Name Role Phone Isidro Heredia MD Unavailable [phone] Tomas Hyman MD Primary Care Provider [phone] Reason for Visit * Reason Comments Refill Request Encounter Details Date Type Department Care Team (Late Contact Info) Description 06/19/2017 Refill [facility] - Rheumatology [address] [place] [address] Isidro Heredia MD [address] [place] [address] Refill Request Social History Tobacco Use [...] (Late Contact Info) Description 06/03/2024 1:00 PM BIOINFORMATICS RESEARCH TECHNICIAN Appointment [facility] - Rheumatology [address] [place] [address] 06/03/2024 2:00 PM BIOINFORMATICS RESEARCH TECHNICIAN Office Visit [facility] Rheumatology [address] [place] [address] Gloria Smith MD [address] [place], [place] [address] [address] documented as of this encounter Visit Diagnoses Not on filedocumented in this encounter Care Teams Antiquer Relationship Specialty Start Date End Date Tomas Hyman MD [address] [place] [address] PCP - General Family Medicine 12/31/13 05/09/18 Isidro Heredia MD Rheumatology 02/09/11 documented as of this encounter
--- OUTSIDE RECORDS SUMMARY | 2024-05-03 04:08 | XMS_ITS | Encounter Summary ---
Author Organization [facility] Address [address] [facility] [place] [address] Care Team Providers Care Fire Management Officer Name Role Phone Isidro Heredia MD Unavailable [phone] Tomas Hyman MD Primary Care Provider [phone] Reason for Visit * Reason Comments Rheumatoid Arthritis Encounter Details Date Type Department Care Team (Late st Contact Info) Description 10/24/2017 2:30 PM CDT Office Visit [facility] - Rheumatology [address] [place] [address] Isidro Heredia MD [address] [place] [address] Chronic right-sided low back pain with [...] Time Taken Comments Blood Pressure 132/72 10/24/2017 2:18 PM CDT Pulse 91 10/24/2017 2:18 PM CDT Temperature - - Respiratory Rate - - Oxygen Saturation - - Inhaled Oxygen Concentration - - Weight 106.1 kg (234 lb) 10/24/2017 2:18 PM CDT Height - - Body Mass Index 33.58 01/11/2016 3:12 PM CDT documented in this encounter Progress Notes * Isidro Heredia MD - 10/24/2017 2:51 PM CDT Subjective: Chalino Deng 57 y.o. male is here for Chief Complaint Patient presents with ??? Rheumatoid Arthritis HPI: On mtx and actemra for ra And peercocet for chronic pain Lost 40 lb with diet Pain Level 5/10 hands Ankles Knees shoulders Good results With steroid shot rt shoulder Am stiffness 1 hr Global 5/10 Fatigue yes Medication Side Effects none Walking trails in [place] BP Readings from Last 2 Encounters: 10/24/17 132/72 10/24/17 132/72 Wt Readings from Last 2 Encounters: 10/24/17 106.1 kg (234 lb) 10/24/17 106.1 kg (234 lb) Temp Readings from Last 2 Encounters: 10/24/17 98.4 ??F (36.9 ??C) 09/03/17 98.2 ??F (36.8 ??C) Pulse Readings from Last 2 Encounters: 10/24/17 91 10/24/17 91 Current Outpatient Prescriptions on File Prior to [...] TAKE 1 TABLET THREE TIMES A DAY (Patient not taking: Reported on 10/24/2017) 270 tablet 1 ??? alendronate (FOSAMAX) 70 [...] Take 1 Tab by mouth once daily (Patient not taking: Reported on 10/24/2017) 90 Tab 3 ??? carvedilol (COREG) 12.5 [...] 1 Tab by mouth once daily ??? Kjpyokmmafn-Vdajtrkqi-Pof C-Mn (GLUCOSAMINE CHONDR 1500 COMPLX PO) Take [...] lungs Objective: General Appearance Physical Exam: BP 132/72 Pulse 91 Wt 106.1 kg (234 lb) BMI 33.58 [...] factor ??? Chronic pain syndrome poorly Controlled Chronic pain ra and lbp same meds Plan: Plan Orders Placed This Encounter ??? oxyCODONE-acetaminophen (PERCOCET) 5-325 MG tablet Sig: Take 1 tablet by mouth every 6 hours as needed for Pain Dx: 714.0 RA Dispense: 120 tablet Refill: 0 Follow up in office in 8 weeks documented in this encounter Plan of Treatment Upcoming Encounters Date Type Department Care Team (Late st Contact Info) Description 06/03/2024 1:00 PM RADIO SALES ACCOUNT EXECUTIVE Appointment [facility] - Rheumatology [address] [place] [address] 06/03/2024 2:00 PM RADIO SALES ACCOUNT EXECUTIVE Office Visit [facility] - Rheumatology [address] [place] [address] Gloria Smith MD [address] [place] [phone] documented as of this encounter Visit Diagnoses Diagnosis Chronic right-sided low back pain with right-sided sciatica- Primary Rheumatoid arthritis of multiple sites with negative rheumatoid factor (HCC) Chronic pain syndrome documented in this encounter Care Teams Fire Management Officer Relationship Specialty Start Date End Date Tomas Hyman MD [address] [facility] [address] [place] [address] PCP - General Family Medicine 12/31/13 05/09/18 Isidro Heredia MD Rheumatology 02/09/11 documented as of this encounter
--- OUTSIDE RECORDS SUMMARY | 2024-05-03 04:08 | XMS_ITS | Encounter Summary ---
Author Organization [facility] Address [address] [facility] [place] [address] Care Team Providers Care Supervisor Boarding Name Role Phone Isidro Heredia MD Unavailable [phone] Tomas Hyman MD Primary Care Provider [phone] Reason for Visit * Treatment (Routine) - Closed Specialty Diagnoses / Procedures Referred By Lawrence shah Referred To Contact Infusion Therapy Nurse Diagnoses Rheumatoid arthritis without rheumatoid factor, multiple sites (HCC) Procedures [place] INJECTION TOCILIZUMAB 1 MG Isidro Heredia MD [address] [facility] [place] [address] [address] Referral ID Status Reason Start Date Expiration Date Visits Re quested Visits Authorized [id number] Closed 05/11/2017 04/29/2018 1 13 Encounter Details Date Type Department Care Team (Late st Contact Info) Description 09/03/2017 1:47 PM CDT - 09/03/2017 11:59 PM CDT Hospital Encounter [facility] - Rheumatology [address] [place] [address] Isidro Heredia MD [address] [facility] [place] [address] Discharge Disposition: Home or Self [...] Sign Reading Time Taken Comments Blood Pressure 118/77 09/03/2017 2:10 PM CDT Pulse 76 09/03/2017 2:10 PM CDT Temperature 36.8 ??C (98.2 ??F) 09/03/2017 2:10 PM CD T Respiratory Rate 18 09/03/2017 2:10 PM CDT Oxygen Saturation - - Inhaled Oxygen Concentration - - Weight 108 kg (238 lb) 09/03/2017 2:10 PM CDT Height - - Body Mass Index 34.15 01/11/2016 3:12 PM CDT documented in this encounter Discharge Instructions * Discharge Instructions* Jody Sahu RN - 09/03/2017 2:23 PM CDT [place] Rheumatology Post Infusion instructions [...] rash or breathing problems please call your [facility] Rheumatology physician for further instructions. While most problems that occur around the time of an infusion are very mild and not dangerous, they should not be ignored. Sunday through 01-02 call the office at [phone] After hours or on the weekend call the exchange at [phone] If you have had lab work done [...] Progress Notes * Jody Sahu RN - 09/03/2017 2:38 PM CDT JOSE Allred Deng [id number] 09/03/2017 Diagnosis: Rheumatoid arthritis without rheumatoid factor, multiple sites [M06.09]. Pt denies symptoms of infection or antibiotic use, no open wounds, or recent surgery, or plans for surgery in the next couple of weeks. Pt is aware that we use the 0-10 pain scale to assess discomfort. 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 administrative assistant front desk pt signs consent for treatment for this infusion. BP 118/77 Pulse 76 Temp 98.2 ??F Resp 18 Wt 108 kg (238 [...] st Contact Info) Description 06/03/2024 1:00 PM TORNADO CHASER Appointment [facility] - Rheumatology [address] [place] [id number] 06/03/2024 2:00 PM TORNADO CHASER Office Visit [facility] - Rheumatology [address] [place] [address] Gloria Smith MD [address] [place] [phone] documented as of this encounter Visit Diagnoses Diagnosis Rheumatoid arthritis of multiple sites with negative rheumatoid factor (HCC) documented in this encounter Administered Medications Inactive Administered Medications - up to 3 most recent administrations Medication Order MAR Action Action Date Dose Rate Site Tocilizumab 800 mg in 0.9% NaCl 100 mL IVPB 800 mg, at 100 mL/hr, Intravenous, ONCE, 1 dose, On Sun09/03/17 at 1430, Stable 24hrs RT $ New Bag/Syringe 09/03/2017 2:35 PM CDT 800 mg 100 mL/hr documented in this encounter Care Teams Supervisor Boarding Relationship Specialty Start Date End Date Tomas Hyman MD [address] [facility] [address] [place] [address] PCP - General Family Medicine 12/31/13 05/09/18 Isidro Heredia MD Rheumatology 02/09/11 documented as of this encounter
--- OUTSIDE RECORDS SUMMARY | 2024-05-03 04:08 | XMS_ITS | Encounter Summary ---
Author Organization [facility] Address [address] [facility] [place] [address] Care Team Providers Care Social Media Marketing Specialist Name Role Phone Isidro Heredia MD Unavailable [phone] Tomas Hyman MD Primary Care Provider Encounter Details Date Type Department Care Team (Late Contact Info) Description 08/27/2017 Orders Only [facility] - Rheumatology [address] [place] [address] Isidro Heredia MD [address] [place] [address] Encounter for long-term (current) use of [...] (Late Contact Info) Description 06/03/2024 1:00 PM ASSOCIATE DIRECTOR FINANCE Appointment [facility] - Rheumatology [address] [place] [address] 06/03/2024 2:00 PM ASSOCIATE DIRECTOR FINANCE Office Visit [facility] Rheumatology [address] [place] [address] Song, Gloria, MD [address] [place], [place] [address], [place] [address] documented as of this encounter Procedures Procedure Name Priority Date/Time Associated Diagnosis Comments LIPID PROFILE W TCHOL/HDL Routine 09/03/2017 3:00 PM CDT Encounter for long-term (current) use of medications documented in this encounter Results * (ABNORMAL) LIPID PROFILE W TCHOL/HDL (09/03/2017 3:00 PM CDT) Cholesterol 130 100 - 199 mg/dL [facility] INSURANCE BILL Triglycerides 260(H) 0 - 149 mg/dL [facility] INSURANCE BILL HDL Cholesterol 41 >39 mg/dL [facility] INSURANCE BILL VLDL Calculated 52(H) 5 - 40 mg/dL [facility] INSURANCE BILL LDL Calculated 37 0 - 99 mg/dL [facility] INSURANCE BILL Comment NOT NEEDED [facility] INSURANCE BILL Comment:Ancillary determined the test is not needed Cholesterol/HDL Ratio 3.2 0.0 - 5.0 ratio [facility] INSURANCE BILL Comment: ? T. Chol/HDL Ratio ? Men ??Women ? 1/2 Avg.Risk ??3.4 ?3.3 ? Avg.Risk ??5.0 ?4.4 ?2X Avg.Risk ??9.6 ?7.1 ?3X Avg.Risk 23.4 ?? 11.0 Blood BLOOD SPECIMEN / Unknown 09/03/2017 3:00 PM CDT 09/03/2017 Narrative Resulting Agency Comment [facility] Given [address] ??[facility] [phone] Isidro Heredia MD LAB - CHEMISTRY ORD ERABLES [facility] INSURANCE BILL [address] [place] [address] documented in this encounter Visit Diagnoses Diagnosis Encounter for long-term (current) use of medications- Primary Encounter for long-term (current) use of other medications documented in this encounter Care Teams Social Media Marketing Specialist Relationship Specialty Start Date End Date Tomas Hyman MD [address] [facility] [address] [place] [address] PCP - General Family Medicine 12/31/13 05/09/18 Isidro Heredia MD Rheumatology 02/09/11 documented as of this encounter
--- OUTSIDE RECORDS SUMMARY | 2024-05-03 04:08 | XMS_ITS | Encounter Summary ---
Author Organization [facility] Address [address] [facility] [place] [address] Care Team Providers Care Chip Person Name Role Phone Isidro Heredia MD Unavailable [phone] Tomas Hyman MD Primary Care Provider [phone] Reason for Visit * Treatment (Routine) - Closed Specialty Diagnoses / Procedures Referred By Lawrence shah Referred To Contact Infusion Therapy Nurse Diagnoses Rheumatoid arthritis without rheumatoid factor, multiple sites (HCC) Procedures [place] INJECTION TOCILIZUMAB 1 MG Isidro Heredia MD [address] [facility] [place] [address] [address] Referral ID Status Reason Start Date Expiration Date Visits Re quested Visits Authorized [id number] Closed 05/11/2017 04/29/2018 1 13 Encounter Details Date Type Department Care Team (Late st Contact Info) Description 12/19/2017 1:00 PM CDT - 12/19/2017 11:59 PM CDT Hospital Encounter [facility] Medical [facility] - Rheumatology [address] [place] [address] Isidro Heredia MD [address] [place] [address] Discharge Disposition: Home or Self [...] Sign Reading Time Taken Comments Blood Pressure 136/77 12/19/2017 1:17 PM CDT Pulse 73 12/19/2017 1:17 PM CDT Temperature 36.6 ??C (97.8 ??F) 12/19/2017 1:17 PM CD T Respiratory Rate 16 12/19/2017 1:17 PM CDT Oxygen Saturation - - Inhaled Oxygen Concentration - - Weight 108 kg (238 lb) 12/19/2017 1:17 PM CDT Height - - Body Mass Index 34.15 01/11/2016 3:12 PM CDT documented in this encounter Discharge Instructions * Discharge Instructions* Jody Christy RN - 12/19/2017 1:40 PM CDT [place] Rheumatology Post Infusion instructions You have received [...] Sunday through 01-02 call the office at [phone] After hours or on the weekend call the exchange at [phone] If you have had lab work done [...] you and are glad you have chosen [facility] as your provider. Jody Christy RN [...] for Pain Dx: 714.0 RA 120 tablet 12/20/2017 03/07/2018 pantoprazole EC (PROTONIX) 40 MG tablet Take [...] Progress Notes * Jody Christy RN - 12/19/2017 1:45 PM CDT JOSE Deng [id number] 12/19/2017 Diagnosis: Rheumatoid arthritis without rheumatoid factor, multiple sites [M06.09]. Pt denies symptoms of infection or antibiotic use, no open wounds, or recent surgery, or plans for surgery in the next couple of weeks. Pt is aware that we use the 0-10 pain scale to assess discomfort. 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 front services agent pt signs consent for treatment for this infusion. BP 136/77 Pulse 73 Temp 97.8 ??F Resp 16 Wt 108 kg (238 lb) BMI 34.15 kg/m2 @ MEDICATIONS FOR CURRENT ENCOUNTER: ?? SCHEDULED MEDICATIONS: ?? tocilizumab (ACTEMRA) 800 mg in 0.9% NaCl 110 mL IVPB, Intravenous, Once ?? Number of 24 gauge 3/4 inch placed in Left antecubital ?? 1 attempt(s). Patient monitored throughout procedure. Tolerated well? Yes Next treatment? 4 weeks Jody Christy RN documented in this encounter Plan of Treatment Upcoming Encounters Date Type Department Care Team (Late st Contact Info) Description 06/03/2024 1:00 PM BUSINESS PLANNING ANALYST Appointment [facility] - Rheumatology [address] [place] [address] 06/03/2024 2:00 PM BUSINESS PLANNING ANALYST Office Visit [facility] - Rheumatology [address] [place], [place] [address] [id number] Gloria Smith MD [address] [place] [address] [place] [id number] documented as of this encounter Visit Diagnoses Diagnosis Rheumatoid arthritis of multiple sites with negative rheumatoid factor (HCC) documented in this encounter Administered Medications Inactive Administered Medications - up to 3 most recent administrations Medication Order MAR Action Action Date Dose Rate Site tocilizumab (ACTEMRA) 800 mg in 0.9% NaCl 110 mL IVPB 800 mg, at 110 mL/hr, Intravenous, ONCE, 1 dose, On Sun12/19/17 at 1330, Stable 24hrs RT $ New Bag/Syringe 12/19/2017 1:27 PM CDT 800 mg 110 mL/hr documented in this encounter Care Teams Chip Person Relationship Specialty Start Date End Date Tomas Hyman MD [address] [address] [address] [place] [address] PCP - General Family Medicine 12/31/13 05/09/18 Isidro Heredia MD Rheumatology 02/09/11 documented as of this encounter
--- OUTSIDE RECORDS SUMMARY | 2024-05-03 04:08 | XMS_ITS | Encounter Summary ---
Author Organization [facility] Address [address] [place] [address] Care Team Providers Care Ela Teacher Name Role Phone Isidro Heredia MD Unavailable [phone] Tomas Hyman MD Primary Care Provider [phone] Reason for Visit * Treatment (Routine) - Closed Specialty Diagnoses / Procedures Referred By Lawrence shah Referred To Contact Infusion Therapy Nurse Diagnoses Rheumatoid arthritis without rheumatoid factor, multiple sites (HCC) Procedures GA INJECTION TOCILIZUMAB 1 MG Isidro Heredia MD [address] [place] [address] [address] Referral ID Status Reason Start Date Expiration Date Visits Re quested Visits Authorized [id number] Closed 08/07/2016 04/29/2017 1 12 Encounter Details Date Type Department Care Team (Late st Contact Info) Description 03/08/2017 1:30 PM FIRST AID DIRECTOR - 03/08/2017 3:55 PM FIRST AID DIRECTOR Hospital Encounter [facility] Medical [facility] - Rheumatology [address] [place] [address] Isidro Heredia MD [address] [place] [address] Discharge Disposition: Home or Self [...] Reading Time Taken Comments Blood Pressure 128/74 03/08/2017 1:59 PM FIRST AID DIRECTOR Pulse 79 03/08/2017 1:59 PM FIRST AID DIRECTOR Temperature 36.7 ??C (98.1 ??F) 03/08/2017 1:59 PM CS T Respiratory Rate 16 03/08/2017 1:59 PM FIRST AID DIRECTOR Oxygen Saturation - - Inhaled Oxygen Concentration - - Weight 109.8 kg (242 lb) 03/08/2017 1:59 PM FIRST AID DIRECTOR Height - - Body Mass Index 34.72 01/11/2016 3:12 PM CDT documented in this encounter Discharge Instructions * Discharge Instructions* Jody Sahu RN - 03/08/2017 2:04 PM FIRST AID DIRECTOR [facility] Post Infusion instructions You have received [...] Sunday through 01-02 call the office at [phone] After hours or on the weekend call the exchange at [phone] If you have had lab work done [...] Hospital as your provider. Jody Sahu RN T AID DIRECTOR documented in this encounter Medications at [...] Progress Notes * Jody Sahu RN - 03/08/2017 2:26 PM CST JOSE Deng [id number] 03/08/2017 Diagnosis: Rheumatoid arthritis without rheumatoid factor, multiple sites [M06.09]. Pt denies symptoms of infection or antibiotic use, no open wounds, or recent surgery, or plans for surgery in the next couple of weeks. Pt is aware that we use the 0-10 pain scale to assess discomfort. 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 lockstitch front maker pt signs consent for treatment for this infusion. BP 128/74 Pulse 79 Temp 98.1 ??F Resp 16 Wt 109.8 kg (242 lb) BMI 34.72 kg/m2 @ MEDICATIONS FOR CURRENT ENCOUNTER: ?? SCHEDULED MEDICATIONS: ?? Tocilizumab 800 mg in 0.9% NaCl 100 mL IVPB, Intravenous, Once ?? CONTINUOUS MEDICATIONS: PRN MEDICATIONS: ?? Number of 24 gauge 3/4 inch placed in Left antecubital ?? 1 attempt(s). Patient monitored throughout procedure. Tolerated well? Yes Next treatment? 4 weeks Jody Sahu RN T AID DIRECTOR documented in this encounter Plan of Treatment Upcoming Encounters Date Type Department Care Team (Late st Contact Info) Description 06/03/2024 1:00 PM FIRST AID DIRECTOR Appointment [facility] - Rheumatology [address] [place] [address] 06/03/2024 2:00 PM FIRST AID DIRECTOR Office Visit [facility] - Rheumatology [address] [place] [address] Gloria Smith MD [address] [place] [phone] documented as of this encounter Visit Diagnoses Diagnosis Rheumatoid arthritis of multiple sites with negative rheumatoid factor (HCC) documented in this encounter Administered Medications Inactive Administered Medications - up to 3 most recent administrations Medication Order MAR Action Action Date Dose Rate Site Tocilizumab 800 mg in 0.9% NaCl 100 mL IVPB 800 mg, at 100 mL/hr, Intravenous, ONCE, 1 dose, On Gabriela 03/08/17 at 1400, Stable 24hrs RT $ New Bag/Syringe 03/08/2017 2:15 PM FIRST AID DIRECTOR 800 mg 100 mL/hr documented in this encounter Care Teams Ela Teacher Relationship Specialty Start Date End Date Tomas Hyman MD [address] [facility] [address] [place] [address] PCP - General Family Medicine 12/31/13 05/09/18 Isidro Heredia MD Rheumatology 02/09/11 documented as of this encounter
--- OUTSIDE RECORDS SUMMARY | 2024-05-03 04:08 | XMS_ITS | Encounter Summary ---
Author Organization [facility] Address [address] [place] [address] Care Team Providers Care Stock Repairer Name Role Phone Isidro Heredia MD Unavailable [phone] Tomas Hyman MD Primary Care Provider [phone] Reason for Visit * Treatment (Routine) - Closed Specialty Diagnoses / Procedures Referred By Lawrence shah Referred To Contact Infusion Therapy Nurse Diagnoses Rheumatoid arthritis without rheumatoid factor, multiple sites (HCC) Procedures [place] INJECTION TOCILIZUMAB 1 MG Isidro Heredia MD [address] [place] [address] [address] Referral ID Status Reason Start Date Expiration Date Visits Re quested Visits Authorized [id number] Closed 08/07/2016 04/29/2017 1 12 Encounter Details Date Type Department Care Team (Late st Contact Info) Description 04/05/2017 2:03 PM PROGRAMMER DEVELOPER - 04/05/2017 11:59 PM PROGRAMMER DEVELOPER Hospital Encounter [facility] Medical [facility] - Rheumatology [address] [place] [address] Isidro Heredia MD [address] [facility] [place] [address] Discharge Disposition: Home or Self [...] Sign Reading Time Taken Comments Blood Pressure 163/90 04/05/2017 2:25 PM PROGRAMMER DEVELOPER Pulse 70 04/05/2017 2:25 PM PROGRAMMER DEVELOPER Temperature 37.2 ??C (99 ??F) 04/05/2017 2:25 PM PROGRAMMER DEVELOPER Respiratory Rate 18 04/05/2017 2:25 PM PROGRAMMER DEVELOPER Oxygen Saturation - - Inhaled Oxygen Concentration - - Weight 113.4 kg (250 lb) 04/05/2017 2:25 PM PROGRAMMER DEVELOPER Height - - Body Mass Index 35.87 01/11/2016 3:12 PM CDT documented in this encounter Discharge Instructions * Discharge Instructions* Jody Sahu RN - 04/05/2017 2:34 PM PROGRAMMER DEVELOPER [facility] Rheumatology Post Infusion instructions You have received [...] through Sunday 9-5 call the office at [phone] After hours or on the weekend call the exchange at [phone] If you have had lab work done [...] Hospital as your provider. Jody Sahu RN RAMMER DEVELOPER documented in this encounter Medications at Time [...] for Pain Dx: 714.0 RA 120 tablet 04/05/2017 06/14/2017 pantoprazole EC (PROTONIX) 40 MG tablet Take 1 Tab by mouth once daily 90 Tab 3 09/21/2016 10/24/2017 predniSONE (DELTASONE) 10 MG tablet TAKE 1 TABLET TWICE A DAY 180 tablet 03/19/2017 06/17/2017 REFRESH PLUS 0.5 % ophthalmic solution Instill 1 Drop into both eyes every 3 hours as needed 11/21/2016 09/05/2018 Tocilizumab (ACTEMRA IV) 800 mg by Intravenous route every 30 days 03/07/2018 topiramate (TOPAMAX) 50 MG tablet Take 50 mg by mouth once daily 10/24/2017 documented as of this encounter Progress Notes * Jody Sahu RN - 04/05/2017 2:49 PM CST JOSE Deng [id number] 04/05/2017 Diagnosis: Rheumatoid arthritis without rheumatoid factor, multiple sites [M06.09]. Pt denies symptoms of infection or antibiotic use, no open wounds, or recent surgery, or plans for surgery in the next couple of weeks. Pt is aware that we use the 0-10 pain scale to assess discomfort. 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 lockstitch front edge tape sewer pt signs consent for treatment for this infusion. BP 163/90 Pulse 70 Temp 99 ??F Resp 18 Wt 113.4 kg (250 lb) BMI 35.87 kg/m2 @ MEDICATIONS FOR CURRENT ENCOUNTER: ?? SCHEDULED MEDICATIONS: ?? Tocilizumab 800 mg in 0.9% NaCl 100 mL IVPB, Intravenous, Once ?? CONTINUOUS MEDICATIONS: PRN MEDICATIONS: ?? Number of 24 gauge 3/4 inch placed in Right hand ?? 1 attempt(s). Patient monitored throughout procedure. Tolerated well? Yes Next treatment? 4 weeks Jody Sahu RN RAMMER DEVELOPER documented in this encounter Plan of Treatment Upcoming Encounters Date Type Department Care Team (Late st Contact Info) Description 06/03/2024 1:00 PM PROGRAMMER DEVELOPER Appointment [facility] - Rheumatology [address] [place] [address] 06/03/2024 2:00 PM PROGRAMMER DEVELOPER Office Visit [facility] - Rheumatology [address] [place] [address] Gloria Smith MD [address] [place] [phone] documented as of this encounter Visit Diagnoses Diagnosis Rheumatoid arthritis of multiple sites with negative rheumatoid factor (HCC) documented in this encounter Administered Medications Inactive Administered Medications - up to 3 most recent administrations Medication Order MAR Action Action Date Dose Rate Site Tocilizumab 800 mg in 0.9% NaCl 100 mL IVPB 800 mg, at 100 mL/hr, Intravenous, ONCE, 1 dose, On Gabriela 04/05/17 at 1445, Stable 24hrs RT $ New Bag/Syringe 04/05/2017 2:45 PM PROGRAMMER DEVELOPER 800 mg 100 mL/hr documented in this encounter Care Teams Stock Repairer Relationship Specialty Start Date End Date Tomas Hyman MD [address] [facility] [address] [place] [address] PCP - General Family Medicine 12/31/13 05/09/18 Isidro Heredia MD Rheumatology 02/09/11 documented as of this encounter
--- OUTSIDE RECORDS SUMMARY | 2024-05-03 04:08 | XMS_ITS | Encounter Summary ---
Author Organization [facility] Address [address] [place] [address] Care Team Providers Care Piano Mechanic Name Role Phone Isidro Heredia MD Unavailable [phone] Tomas Hyman MD Primary Care Provider [phone] Reason for Visit * Reason Comments Follow-up Encounter Details Date Type Department Care Team (Late st Contact Info) Description 03/08/2017 2:15 PM BOX PACKER Office Visit [facility] - Rheumatology [address] [place] [address] [phone] Isidro Heredia MD [address] [place] [phone] Chronic right-sided low back pain with right-sided sciatica (Primary Dx); Triceps tendonitis; Rheumatoid arthritis of multiple sites with negative rheumatoid factor (HCC); Lumbar radiculopathy; Chronic pain syndrome Social History Tobacco Use [...] Time Taken Comments Blood Pressure 128/74 03/08/2017 2:37 PM BOX PACKER Pulse 79 03/08/2017 2:37 PM BOX PACKER Temperature - - Respiratory Rate - - Oxygen Saturation - - Inhaled Oxygen Concentration - - Weight 109.8 kg (242 lb) 03/08/2017 2:37 PM BOX PACKER Height - - Body Mass Index 34.72 01/11/2016 3:12 PM CDT documented in this encounter Progress Notes * Isidro Heredia MD - 03/08/2017 2:57 PM CST Subjective: Chalino Deng 56 y.o. male is here for Chief Complaint Patient presents with ??? Follow-up HPI: On actemra and mtxx for ra And neurontin Percocet Skelaxin for chronic pain He had good relief with lumbar epid injections for sciaticqa Now he has sciatica to right groin Andmri Shows hd L5 S1 and he has neck pain radiates to right wrist Pain Level 9/10 Am stiffness 1 hr Global 01/07 Fatigue yes Medication Side Effects none Current Outpatient Prescriptions on File Prior to Visit Medication Sig Dispense Refill ??? REFRESH PLUS 0.5 % ophthalmic solution Instill 1 Drop into both eyes every 3 hours as needed ??? Tocilizumab (ACTEMRA IV) 800 mg by Intravenous route every 30 days ??? gabapentin (NEURONTIN) 300 MG capsule 1 Cap 2 times daily 180 Cap 1 ??? oxyCODONE-acetaminophen (PERCOCET) 5-325 MG tablet Take 1 Tab by mouth every 6 hours as needed for Pain Dx: 714.0 RA 120 Tab 0 ??? metaxalone (SKELAXIN) 800 MG tablet TAKE 1 TABLET THREE TIMES A DAY 270 Tab 1 ??? predniSONE (DELTASONE) 10 MG tablet TAKE 1 TABLET TWICE A DAY 180 Tab 0 ??? topiramate (TOPAMAX) 50 MG tablet Take [...] PRIMARY CARE PHYSICIAN) 120 Tab 0 ??? alendronate (FOSAMAX) 70 MG tablet TAKE 1 TABLET EVERY 7 DAYS BEFORE A MEAL IN MORNING WITH FULL GLASS OF WATER ON AN EMPTY STOMACH AND REMAIN UPRIGHT FOR 30 MINUTES 12 Tab 2 ??? atorvastatin (LIPITOR) 40 MG tablet Take [...] 1 Tab by mouth once daily ??? Cfhjhpokwrd-Fzbmmefow-Ami C-Mn (GLUCOSAMINE CHONDR 1500 COMPLX PO) Take 1 Tab by mouth once daily ??? ZYRTEC 10 MG TABS Take 10 mg by mouth once daily. Seasonal (nov. Current Facility-Administered Medications on File Prior to Visit Medication Dose Route Frequency Provider Last Rate Last Dose ??? [COMPLETED] Tocilizumab 800 mg in 0.9% NaCl 100 mL IVPB 800 mg Intravenous Once Isidro Heredia MD 100 mL/hr at 03/08/17 1415 800 mg at 03/08/17 1415 Patient Active Problem List Diagnosis ??? Rheumatoid [...] nocturia, dysuria, frequency, urgency, kidney stones. MS: No muscle weakness, tenderness or joint pain NEURO: No headaches, seizures, dizziness, confusion, numbness, tingling HEME/LYMPH: No bruising or bleeding, swollen glands SKIN: No rash, itching, dry skin ENDO No Heat or cold intol, no hyper or hypoglycemia PSYCH: No memory loss, disorientation, confusion, mood changes, ALLERGY/IMMU No runny nose, tearing, sneezing, cough, eye irritation Systems reviewed Objective: General Appearance Physical Exam: BP 128/74 Pulse 79 Wt 109.8 kg (242 lb) BMI 34.72 kg/m2 Head: perrla, eyes no irritation, vision and hearing intact, no oral ulcers, tongue normal, throat clear Neck:supple, no bruits, adenopathy Chest: clear, no rales, rhonchi or wheezes. Heart nsr. No S3,S4, or murmurs Abdomen:soft, no masses or tenderness, no organomegaly Genitalia, Groin, Buttocks: Back: no abnormal curvature, tenderness, or muscle spasm Extremities: No edema, cyanosis, or rash RUE: 9/TJ, 4/SJ, 0/muscle tenderness or weakness LUE: 9/TJ, 4/SJ, 0/muscle tenderness or weakness RLE: 0/TJ, 0/SJ, 0/muscle tenderness or weakness LLE: 0/TJ, 0/SJ, 0/muscle tenderness or weakness Painful abduction Right shoulder Assessment: Encounter Diagnoses Name Primary? Chronic right-sided low back pain with right-sided sciatica Yes ??? Triceps tendonitis ??? Rheumatoid arthritis of multiple sites with negative rheumatoid factor ??? Lumbar radiculopathy ??? Chronic pain syndrome Poorly controlled ra Triceps tendonitis Same meds and steroid injection Plan: Plan Under sterile condition, 2 cc's of tac 1 cc 2% lidocaine with were injected in the right shoulder triceps tendon. 0 cc's of synovial fluid were aspirated. Patient tolerated procedure well without complications. No orders of the defined types were placed in this encounter. Follow up in office in 4 weeks PACKER documented in this encounter Plan of Treatment Upcoming Encounters Date Type Department Care Team (Late st Contact Info) Description 06/03/2024 1:00 PM BOX PACKER Appointment [facility] - Rheumatology [address] [place] [address] 06/03/2024 2:00 PM BOX PACKER Office Visit [facility] - Rheumatology [address] [place] [phone] Gloria Smith MD [address] [place] [address] [phone] documented as of this encounter Results * XR ANKLE BILAT 2 VIEWS (03/08/2017 4:07 PM BOX PACKER) Anatomical Region Laterality Modality Ankle / Foot, Lower Extremity Ra diographic Imaging 03/08/2017 4:14 PM BOX PACKER Impressions 03/08/2017 4:15 PM BOX PACKER No fracture. Narrative 03/08/2017 4:15 PM BOX PACKER Bilateral ankles 2 views INDICATION: Ankle pain [...] in this encounter Visit Diagnoses Diagnosis Chronic right-sided low back pain with right-sided sciatica- Primary Triceps tendonitis Other enthesopathy of elbow region Rheumatoid arthritis of multiple sites with negative rheumatoid factor (HCC) Lumbar radiculopathy Thoracic or lumbosacral neuritis or radiculitis, unspecified Chronic pain syndrome Chronic pain syndrome documented in this encounter Administered Medications Inactive Administered Medications - up to 3 most recent administrations Medication Order MAR Action Action Date Dose Rate Site lidocaine (XYLOCAINE) 2 % injection Intra-articular, ONCE, 1 dose, On Gabriela 03/08/17 at 1715 $ Given 03/08/2017 4:47 PM BOX PACKER 1 mL Right Shoulder triamcinolone acetonide (KENALOG-40) injection 80 mg 80 mg, Intra-articular, ONCE, 1 dose, On Gabriela 03/08/17 at 1715, Shake well before using. $ Given 03/08/2017 4:48 PM BOX PACKER 80 mg Right Shoulder documented in this encounter Care Teams Piano Mechanic Relationship Specialty Start Date End Date Tomas Hyman MD [address] [place] [address] PCP - General Family Medicine 12/31/13 05/09/18 Isidro Heredia MD Rheumatology 02/09/11 documented as of this encounter
--- OUTSIDE RECORDS SUMMARY | 2024-05-03 04:09 | XMS_ITS | Encounter Summary ---
Author Organization [facility] Address [address] [facility] [address] Care Team Providers Care Crew Leader/Control Room Operator Name Role Phone Isidro Heredia MD Unavailable [phone] Tomas Hyman MD Primary Care Provider [phone] Encounter Details Date Type Department Care Team (Late Contact Info) Description 11/22/2016 Orders Only [facility] - Rheumatology [address] [place] [address] Isidro Heredia MD [address] [place] [address] Rheumatoid arthritis involving multiple sites, unspecified rheumatoid factor presence ; Hyperlipidemia, unspecified hyperlipidemia type Social History Tobacco Use Types Packs/Day [...] (Late Contact Info) Description 06/03/2024 1:00 PM CALCULATOR OPERATOR Appointment [facility] - Rheumatology [address] [place] [address] 06/03/2024 2:00 PM CALCULATOR OPERATOR Office Visit [facility] - Rheumatology [address] [place] [address] Gloria Smith MD [address] [place] [phone] documented as of this encounter Procedures Procedure Name Priority Date/Time Associated Diagnosis Comments LIPID PROFILE W TCHOL/HDL Routine 11/23/2016 12:30 PM CDT Hyperlipidemia, unspecified hyperlipidemia type ERYTHROCYTE SEDIMENTATION RATE Routine 11/23/2016 12:30 PM CDT Rheumatoid arthritis involving multiple sites, unspecified rheumatoid factor presence CBC W AUTO DIFFERENTIAL Routine 11/23/2016 12:30 PM CDT Rheumatoid arthritis involving multiple sites, unspecified rheumatoid factor presence COMPREHENSIVE METABOLIC PANEL Routine 11/23/2016 12:30 PM CDT Rheumatoid arthritis involving multiple sites, unspecified rheumatoid factor presence documented in this encounter Results * LIPID PROFILE W TCHOL/HDL (11/23/2016 12:30 PM CDT) Cholesterol 116 100 - 199 mg/dL [facility] INSURANCE BILL Triglycerides 87 0 - 149 mg/dL [facility] INSURANCE BILL HDL Cholesterol 54 >39 mg/dL [facility] INSURANCE BILL VLDL Calculated 17 5 - 40 mg/dL [facility] INSURANCE BILL LDL Calculated 45 0 - 99 mg/dL [facility] INSURANCE BILL Comment NOT NEEDED [facility] INSURANCE BILL Comment:Ancillary determined the test is not needed Cholesterol/HDL Ratio 2.1 0.0 - 5.0 ratio units [facility] INSURANCE BILL Comment: ? T. Chol/HDL Ratio ? Men ??Women ? 1/2 Avg.Risk ??3.4 ?3.3 ? Avg.Risk ??5.0 ?4.4 ?2X Avg.Risk ??9.6 ?7.1 ?3X Avg.Risk 23.4 ?? 11.0 Blood BLOOD SPECIMEN / Unknown 11/23/2016 12:30 PM CDT 11/23/2016 Narrative Resulting Agency Comment [facility] [address] ??[place] [phone] Isidro Heredia MD LAB - CHEMISTRY ORD ERABLES Performing Organization Address City[facility]/ZIP Co de Phone Number [facility] INSURANCE BILL [address] [place] [address] * [facility] (11/23/2016 12:30 PM CDT) Erythrocyte Sedimentation Rate Westergren 12 0 - 30 mm/hr [facility] INSURANCE BILL Blood BLOOD SPECIMEN / Unknown 11/23/2016 12:30 PM CDT 11/23/2016 Narrative Resulting Agency Comment [facility] [address] ??[place] [phone] Isidro Heredia MD LAB - HEMATOLOGY OR DERABLES Performing Organization Address [facility] Co de Phone Number [facility] INSURANCE BILL [address] [place] [address] * (ABNORMAL) COMPREHENSIVE METABOLIC PANEL (11/23/2016 12:30 PM CDT) Glucose 129(H) 65 - 99 mg/dL [facility] INSURANCE BILL BUN 19 6 - 24 mg/dL [facility] INSURANCE BILL Creatinine 0.96 0.76 - 1.27 mg/dL [facility] INSURANCE BILL eGFR by MDRD 89 >59 mL/min/1.7 3 [facility] INSURANCE BILL eGFR by MDRD 103 >59 mL/min/1.7 3 [facility] INSURANCE BILL BUN/Creatinine Ratio 20 9 - 20 [facility] INSURANCE BILL Sodium 138 134 - 144 mmol/L [facility] INSURANCE BILL Potassium 4.3 3.5 - 5.2 mmol/L [facility] INSURANCE BILL Chloride 103 96 - 106 mmol/L [facility] INSURANCE BILL CO2 19 18 - 29 mmol/L [facility] INSURANCE BILL [...] - 40 IU/L [facility] INSURANCE BILL ALT 24 0 - 44 IU/L [facility] INSURANCE BILL Blood BLOOD SPECIMEN / Unknown 11/23/2016 12:30 PM CDT 11/23/2016 Narrative Resulting Agency Comment [facility] [address] [facility] ??[facility] [phone] Isidro Heredia MD LAB - CHEMISTRY ORD ERABLES [facility] INSURANCE BILL [address] [place] [address] * (ABNORMAL) CBC W AUTO DIFFERENTIAL (11/23/2016 12:30 PM CDT) WBC 10.4 3.4 - 10.8 x10E3/uL [facility] INSURANCE BILL RBC 3.88(L) 4.14 - 5.80 x10E6/uL [facility] INSURANCE BILL Hemoglobin 12.3(L) 12.6 - 17.7 g/dL [facility] INSURANCE BILL Hematocrit 37.4(L) 37.5 - 51.0 % [facility] INSURANCE BILL MCV 96 79 - 97 fL [facility] INSURANCE BILL MCH 31.7 26.6 - 33.0 pg [facility] INSURANCE BILL MCHC 32.9 31.5 - 35.7 g/dL [facility] INSURANCE BILL RDW 13.8 12.3 - 15.4 % [facility] INSURANCE BILL Platelet Count 197 150 - 379 x10E3/uL [facility] INSURANCE BILL Granulocytes % 77 % [facility] INSURANCE BILL Lymphocytes % 16 % [facility] INSURANCE B[facility] Monocytes % 6 % [facility] INSURANCE BILL Eosinophils % 1 % [facility] INSURANCE BILL Basophils % 0 % [facility] INSURANCE BILL Immature Cells NOT NEEDED [facility] INSURANCE BILL Comment:Ancillary determined the test is not needed Granulocytes Absolute 8.0(H) 1.4 - 7.0 x10E3/uL [facility] INSURANCE BILL Lymphocytes Absolute 1.7 0.7 - 3.1 x10E3/uL [facility] INSURANCE BILL Monocytes Absolute 0.6 0.1 - 0.9 x10E3/uL [facility] INSURANCE BILL Eosinophils Absolute 0.1 0.0 - 0.4 x10E3/uL [facility] INSURANCE BILL Basophils Absolute 0.0 0.0 - 0.2 x10E3/uL [facility] INSURANCE BILL Immature Granulocytes 0 % [facility] INSURANCE BILL Immature Granulocytes Absolute 0.0 0.0 - 0.1 x10E3/uL [facility] INSURANCE BILL nRBC NOT NEEDED [facility] INSURANCE BILL Comment:Ancillary determined the test is not needed Comment Hematology NOT NEEDED [facility] INSURANCE BILL Comment:Ancillary determined the test is not needed Blood BLOOD SPECIMEN / Unknown 11/23/2016 12:30 PM CDT 11/23/2016 Narrative Resulting Agency Comment [facility] [address] [facility] ??[facility] [phone] Isidro Heredia MD LAB - HEMATOLOGY OR DERABLES [facility] INSURANCE BILL [address] [place] [address] documented in this encounter Visit Diagnoses Diagnosis Rheumatoid arthritis involving multiple sites, unspecified rheumatoid factor presence (HCC)- Primary Hyperlipidemia, unspecified hyperlipidemia type documented in this encounter Care Teams Crew Leader/Control Room Operator Relationship Specialty Start Date End Date Tomas Hyman MD [address] [facility] [address] [place] [address] PCP - General Family Medicine 12/31/13 05/09/18 Isidro Heredia MD Rheumatology 02/09/11 documented as of this encounter
--- OUTSIDE RECORDS SUMMARY | 2024-05-03 04:09 | XMS_ITS | Encounter Summary ---
Author Organization [facility] Address [address] [facility] [place] [address] Care Team Providers Care Dining Manager Name Role Phone Isidro Heredia MD Unavailable [phone] Tomas Hyman MD Primary Care Provider Reason for Visit * Reason Comments Refill Request Encounter Details Date Type Department Care Team (Late Contact Info) Description 11/15/2016 Refill [facility] - Rheumatology [address] [place] [address] Isidro Heredia MD [address] [place] [address] Refill Request Social History Tobacco Use [...] (Late Contact Info) Description 06/03/2024 1:00 PM BEVERAGE MANAGER Appointment [facility] - Rheumatology [address] [place] [address] 06/03/2024 2:00 PM BEVERAGE MANAGER Office Visit [facility] Rheumatology [address] [place] [address] Gloria Smith MD [address] [place] [address] [address] documented as of this encounter Visit Diagnoses Not on filedocumented in this encounter Care Teams Dining Manager Relationship Specialty Start Date End Date Tomas Hyman MD [address] [place] [address] PCP - General Family Medicine 12/31/13 05/09/18 Isidro Heredia MD Rheumatology 02/09/11 documented as of this encounter
--- OUTSIDE RECORDS SUMMARY | 2024-05-03 04:09 | XMS_ITS | Encounter Summary ---
Author Organization [facility] Address [address] [facility] [place] [address] Care Team Providers Care Field Installation Technician Name Role Phone Isidro Heredia MD Unavailable [phone] Tomas Hyman MD Primary Care Provider [phone] Encounter Details Date Type Department Care Team (Late Contact Info) Description 09/21/2016 Orders Only [facility] - Rheumatology [address] [place] [address] Isidro Heredia MD [address] [place] [address] Social History Tobacco Use Types Packs/Day [...] (Late Contact Info) Description 06/03/2024 1:00 PM TRIMMING MACHINE OPERATOR Appointment [facility] - Rheumatology [address] [place] [address] 06/03/2024 2:00 PM TRIMMING MACHINE OPERATOR Office Visit [facility] - Rheumatology [address] [place] [address] Gloria Smith MD [address] [place] [phone] documented as of this encounter Visit Diagnoses Not on filedocumented in this encounter Care Teams Field Installation Technician Relationship Specialty Start Date End Date Tomas Hyman MD [address] [facility] [address] [place] [address] PCP - General Family Medicine 12/31/13 05/09/18 Isidro Heredia MD Rheumatology 02/09/11 documented as of this encounter
--- OUTSIDE RECORDS SUMMARY | 2024-05-03 04:09 | XMS_ITS | Encounter Summary ---
Author Organization [facility] Address [address] [facility] [place] [address] Care Team Providers Care Business Management Analyst Name Role Phone Isidro Heredia MD Unavailable [phone] Tomas Hyman MD Primary Care Provider [phone] Reason for Visit * Treatment (Routine) - Closed Specialty Diagnoses / Procedures Referred By Lawrence shah Referred To Contact Infusion Therapy Nurse Diagnoses Rheumatoid arthritis without rheumatoid factor, multiple sites (HCC) Procedures [place] INJECTION TOCILIZUMAB 1 MG Isidro Heredia MD [address] [place] [address] [address] Referral ID Status Reason Start Date Expiration Date Visits Re quested Visits Authorized [id number] Closed 08/07/2016 04/29/2017 1 12 Encounter Details Date Type Department Care Team (Late st Contact Info) Description 09/21/2016 1:30 PM CDT - 09/21/2016 3:45 PM CDT Hospital Encounter [facility] Medical [facility] - Rheumatology [address] [place] [address] Isidro Heredia MD [address] [facility] [address] Discharge Disposition: Home or Self [...] Sign Reading Time Taken Comments Blood Pressure 159/96 09/21/2016 3:35 PM CDT Pulse 80 09/21/2016 3:35 PM CDT Temperature 36.6 ??C (97.8 ??F) 09/21/2016 3:35 PM CD T Respiratory Rate 16 09/21/2016 3:35 PM CDT Oxygen Saturation - - Inhaled Oxygen Concentration - - Weight - - Height - - Body Mass Index - - documented in this encounter Discharge Instructions * Discharge Instructions* Carlos Foreman RN - 09/21/2016 3:04 PM CDT Discharge Instructions [facility] Rheumatology You [...] through Sunday 9-5 call the office at [phone]. After hours or on the weekend call the exchange at [phone]. If you have had lab work done [...] and are glad you have chosen [facility] as your Provider documented in this encounter Medications at Time of Discharge Medication Sig Dispensed Refills Start Date End Date atorvastatin (LIPITOR) 40 MG tablet Take 1 (one) tablet by mouth at bedtime Xrmtvkzbjkl-Uwkgzyfju-J it C-Mn (GLUCOSAMINE CHONDR 1500 COMPLX PO) Take [...] 09/19/2016 11/21/2017 gabapentin (NEURONTIN) 300 MG capsule TAKE 1 CAPSULE TWICE A DAY 180 Cap 1 07/07/2016 01/04/2017 KRILL OIL PO Take 500 mg by mouth once daily 09/05/2018 metaxalone (SKELAXIN) 800 MG tablet TAKE 1 TABLET THREE TIMES A DAY 270 Tab 1 07/17/2016 12/23/2016 methotrexate 2.5 MG tablet TAKE 6 TABLETS EVERY 7 DAYS 72 Tab 3 12/15/2015 11/15/2016 Multiple Vitamins-Minerals (OCUVITE PO) Take 1 Tab by mouth once daily 10/24/2017 naproxen (NAPROSYN) 500 MG tablet 1 Tab 2 times daily 180 Tab 2 09/21/2016 06/19/2017 NEXIUM 40 MG capsule TAKE 1 CAPSULE DAILY BEFORE BREAKFAST 90 Cap 1 06/08/2016 02/02/2017 oxyCODONE-acetaminophen (PERCOCET) 5-325 MG tablet Take 1 Tab by mouth every 6 hours as needed for Pain Dx: 714.0 RA 120 Tab 09/21/2016 11/24/2016 pantoprazole EC (PROTONIX) 40 MG tablet Take 1 Tab by mouth once daily 90 Tab 3 09/21/2016 10/24/2017 predniSONE (DELTASONE) 10 MG tablet TAKE 1 TABLET TWICE A DAY 180 Tab 1 06/19/2016 12/16/2016 documented as of this encounter Plan of Treatment Upcoming Encounters Date Type Department Care Team (Late st Contact Info) Description 06/03/2024 1:00 PM INTERNET ECOMMERCE SPECIALIST Appointment [facility] - Rheumatology [address] [place] [address] 06/03/2024 2:00 PM INTERNET ECOMMERCE SPECIALIST Office Visit [facility] - Rheumatology [address] [place] [address] Gloria Smith MD [address] [place] [phone] documented as of this encounter Visit Diagnoses Diagnosis Rheumatoid arthritis of multiple sites with negative rheumatoid factor (HCC) documented in this encounter Administered Medications Inactive Administered Medications - up to 3 most recent administrations Medication Order MAR Action Action Date Dose Rate Site Tocilizumab 800 mg in 0.9% NaCl 100 mL IVPB 800 mg, Intravenous, ONCE, 1 dose, On Gabriela 09/21/16 at 1400, Stable 24hrs RT $ Given 09/21/2016 2:00 PM CDT 800 mg documented in this encounter Care Teams Business Management Analyst Relationship Specialty Start Date End Date Tomas Hyman MD [address] [place] [address] PCP - General Family Medicine 12/31/13 05/09/18 Isidro Heredia MD Rheumatology 02/09/11 documented as of this encounter
--- OUTSIDE RECORDS SUMMARY | 2024-05-03 04:09 | XMS_ITS | Encounter Summary ---
Author Organization [facility] Address [address] [place] [address] Care Team Providers Care Avp Name Role Phone Isidro Heredia MD Unavailable [phone] Tomas Hyman MD Primary Care Provider [phone] Reason for Visit * Reason Onset Date Comments MEDICATION REFILL 11/24/2016 Encounter Details Date Type Department Care Team (Late Contact Info) Description 11/24/2016 Refill [facility] - Rheumatology [address] [place] [address] Isidro Heredia MD [address] [place] [address] MEDICATION REFILL Social History Tobacco Use [...] (Late Contact Info) Description 06/03/2024 1:00 PM SPRAY MACHINE OPERATOR Appointment [facility] - Rheumatology [address] [place] [address] 06/03/2024 2:00 PM SPRAY MACHINE OPERATOR Office Visit [facility] - Rheumatology [address] [place] [address] Gloria Smith MD [address] [place] [address] documented as of this encounter Visit Diagnoses Not on filedocumented in this encounter Care Teams Avp Relationship Specialty Start Date End Date Tomas Hyman MD [address] [place] [address] PCP - General Family Medicine 12/31/13 05/09/18 Isidro Heredia MD Rheumatology 02/09/11 documented as of this encounter
--- OUTSIDE RECORDS SUMMARY | 2024-05-03 04:09 | XMS_ITS | Encounter Summary ---
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) ; Hyperlipidemia, unspecified hyperlipidemia type; Rheumatoid arthritis with negative rheumatoid factor, involving unspecified site (HCC) Social History Tobacco Use Types Packs/Day [...] Progress Notes * Dixie Beard LPN - 08/31/2016 10:36 AM CDT Sent via my chart * Isidro Heredia MD - 08/30/2016 4:31 PM CDT mtx ok meron Chol 190 documented in this encounter Plan of Treatment Upcoming Encounters Date Type Department Care Team (Late st Contact Info) Description 06/03/2024 1:00 PM STATOR CONNECTOR Appointment [facility] - Rheumatology [address] [place] [address] 06/03/2024 2:00 PM STATOR CONNECTOR Office Visit [facility] - Rheumatology [address] [place] [address] Gloria Smith MD [address] [place] [phone] documented as of this encounter Procedures Procedure Name Priority Date/Time Associated Diagnosis Comments ERYTHROCYTE SEDIMENTATION RATE Routine 08/24/2016 1:00 PM CDT Rheumatoid arthritis with negative rheumatoid factor, involving unspecified site (HCC) CBC W AUTO DIFFERENTIAL Routine 08/24/2016 1:00 PM CDT Rheumatoid arthritis with negative rheumatoid factor, involving unspecified site (HCC) COMPREHENSIVE METABOLIC PANEL Routine 08/24/2016 1:00 PM CDT Rheumatoid arthritis with negative rheumatoid factor, involving unspecified site (HCC) LIPID PROFILE Routine 08/24/2016 1:00 PM CDT Hyperlipidemia, unspecified hyperlipidemia type documented in this encounter Results * (ABNORMAL) LIPID PROFILE (LIPID PANEL) (08/24/2016 1:00 PM CDT) Cholesterol 190 100 - 199 mg/dL [facility] [...] CDT 08/24/2016 Narrative Resulting Agency Comment [facility] [address] ??[facility] [phone] Isidro Heredia MD LAB - CHEMISTRY ORD ERABLES [facility] INSURANCE BILL [address] [place] [address] * SED RATE AUTO (ESR) (08/24/2016 1:00 PM CDT) Erythrocyte Sedimentation Rate Westergren 6 0 - 30 mm/hr [facility] INSURANCE BILL Blood BLOOD SPECIMEN / Unknown 08/24/2016 1:00 PM CDT 08/24/2016 Narrative Resulting Agency Comment [facility] [id number] ??[facility] [phone] Isidro Heredia MD LAB - HEMATOLOGY OR DERABLES Performing Organization Address City/[facility]/ZIP Co de Phone Number [facility] INSURANCE BILL [address] [place] [address] * (ABNORMAL) COMPREHENSIVE METABOLIC PANEL (08/24/2016 1:00 PM CDT) Glucose 109(H) 65 - 99 mg/dL [facility] INSURANCE BILL BUN 24 6 - 24 mg/dL [facility] INSURANCE BILL Creatinine 0.85 0.76 - 1.27 mg/dL [facility] INSURANCE BILL eGFR by MDRD 99 >59 mL/min/1.7 3 [facility] INSURANCE BILL eGFR by MDRD 115 >59 mL/min/1.7 3 [facility] INSURANCE BILL BUN/Creatinine Ratio 28(H) 9 - 20 [facility] INSURANCE BILL Sodium 140 134 - 144 mmol/L [facility] INSURANCE BILL Potassium 4.4 3.5 - 5.2 mmol/L [facility] INSURANCE BILL Chloride 102 96 - 106 mmol/L [facility] INSURANCE BILL CO2 18 18 - 29 mmol/L [facility] INSURANCE BILL Calcium 9.3 8.7 - 10.2 mg/dL [facility] INSURANCE BILL Protein Total 6.3 6.0 - 8.5 g/dL [facility] INSURANCE BILL Albumin 4.2 3.5 - 5.5 g/dL [facility] INSURANCE BILL Globulin Total 2.1 1.5 - 4.5 g/dL [facility] INSURANCE BILL Albumin/Globulin Ratio 2.0 1.2 - 2.2 [facility] INSURANCE BILL Bilirubin Total 0.5 0.0 - 1.2 mg/dL [facility] INSURANCE BILL Alkaline Phosphatase 46 39 - 117 IU/L [facility] INSURANCE BILL AST 20 0 - 40 IU/L [facility] INSURANCE BILL ALT 30 0 - 44 IU/L [facility] INSURANCE BILL Blood BLOOD SPECIMEN / Unknown 08/24/2016 1:00 PM CDT 08/24/2016 Narrative Resulting Agency Comment [facility] [address] [facility] ??[facility] [phone] Isidro Heredia MD LAB - CHEMISTRY ORD ERABLES [facility] INSURANCE BILL [address] [place] [address] * CBC W AUTO DIFFERENTIAL (08/24/2016 1:00 PM CDT) WBC 9.5 3.4 - 10.8 x10E3/uL [facility] INSURANCE BILL RBC 4.16 4.14 - 5.80 x10E6/uL [facility] INSURANCE BILL Hemoglobin 13.0 12.6 - 17.7 g/dL [facility] INSURANCE BILL Hematocrit 38.0 37.5 - 51.0 % [facility] INSURANCE BILL MCV 91 79 - 97 fL [facility] INSURANCE BILL MCH 31.3 26.6 - 33.0 pg [facility] INSURANCE BILL MCHC 34.2 31.5 - 35.7 g/dL [facility] INSURANCE BILL RDW 14.8 12.3 - 15.4 % [facility] INSURANCE BILL Platelet Count 162 150 - 379 x10E3/uL [facility] INSURANCE BILL Granulocytes % 74 % [facility] INSURANCE BILL Lymphocytes % 19 % [facility] INSURANCE B[facility] Monocytes % 6 % [facility] INSURANCE BILL Eosinophils % 1 % [facility] INSURANCE BILL Basophils % 0 % [facility] INSURANCE BILL Immature Cells NOT NEEDED [facility] INSURANCE BILL Comment:Ancillary determined the test is not needed Granulocytes Absolute 7.0 1.4 - 7.0 x10E3/uL [facility] INSURANCE BILL Lymphocytes Absolute 1.8 0.7 - 3.1 x10E3/uL [facility] INSURANCE BILL [...] CDT 08/24/2016 Narrative Resulting Agency Comment [facility] [address] [facility] ??[facility] [phone] Isidro Heredia MD LAB - HEMATOLOGY OR DERABLES [facility] INSURANCE BILL [address] [place] [address] documented in this encounter Visit Diagnoses Diagnosis 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
--- OUTSIDE RECORDS SUMMARY | 2024-05-03 04:09 | XMS_ITS | Encounter Summary ---
Author Organization [facility] Address [address] [place] [address] Care Team Providers Care Plaster Form Maker Name Role Phone Isidro Heredia MD Unavailable [phone] Tomas Hyman MD Primary Care Provider [phone] Reason for Visit * Reason Comments Follow-up Encounter Details Date Type Department Care Team (Late st Contact Info) Description 01/04/2017 2:30 PM CDT Office Visit [facility] - Rheumatology [address] [place] [address] Isidro Heredia MD [address] [place] [address] Chronic right-sided low back pain with right-sided sciatica (Primary Dx); Chronic pain syndrome; Rheumatoid arthritis of multiple sites with negative rheumatoid factor (HCC); Triceps tendonitis Social History Tobacco Use Types [...] Time Taken Comments Blood Pressure 140/88 01/04/2017 2:58 PM CDT Pulse 78 01/04/2017 2:58 PM CDT Temperature - - Respiratory Rate - - Oxygen Saturation - - Inhaled Oxygen Concentration - - Weight 107 kg (236 lb) 01/04/2017 2:58 PM CDT Height - - Body Mass Index 33.86 01/11/2016 3:12 PM CDT documented in this encounter Progress Notes * Noy Anderson [facility] - 01/08/2017 9:10 AM CDT Corrected E/M code from 75[address] (new patient) to 87179 (established patient) per chart documentations * Isidro Heredia MD - 01/04/2017 3:31 PM CDT Subjective: Chalino Deng 56 y.o. male is here for Chief Complaint Patient presents with ??? Follow-up HPI: On actemra and mtx for ra and neurontin skelaxin for chronic paon 30 ln wt loss Since May Sciatica To right leg better after 2 epidural In jedtions from [place] Pain Level 5/10 After Lumbar injections pain neck Left shoulder Am stiffness 1 hr Global 6/10 Fatigue yes Medication Side Effects none Current Outpatient Prescriptions on File Prior to Visit Medication Sig Dispense Refill ??? metaxalone (SKELAXIN) 800 MG tablet TAKE 1 TABLET THREE TIMES A DAY 270 Tab 1 ??? predniSONE (DELTASONE) 10 MG tablet TAKE 1 TABLET TWICE A DAY 180 Tab 0 ??? phentermine (ADIPEX-P) 37.5 MG capsule Take 37.5 mg by mouth once daily ??? topiramate (TOPAMAX) 50 MG tablet Take [...] FOR 30 MINUTES 12 Tab 2 ??? NEXIUM 40 MG capsule TAKE 1 CAPSULE DAILY BEFORE BREAKFAST 90 Cap 1 ??? atorvastatin (LIPITOR) 40 MG tablet Take [...] 1 Tab by mouth once daily ??? Rewrjammjum-Bbuiecbkk-Aqg C-Mn (GLUCOSAMINE CHONDR 1500 COMPLX PO) Take [...] lungs Objective: General Appearance Physical Exam: BP 140/88 Pulse 78 Wt 107 kg (236 lb) BMI 33.86 kg/m2 Head: perrla, eyes no irritation, vision and hearing intact, no oral ulcers, tongue normal, throat clear Neck:supple, no bruits, adenopathy Painful abduction right shoulder Chest: clear, no rales, rhonchi or wheezes. Heart nsr. No S3,S4, or murmurs Abdomen:soft, no masses or tenderness, no organomegaly Genitalia, Groin, Buttocks: Back: no abnormal curvature, tenderness, or muscle spasm Extremities: No edema, cyanosis, or rash RUE: 10/TJ, 4/SJ, 0/muscle tenderness or weakness LUE: 10/TJ, 4/SJ, 0/muscle tenderness or weakness RLE: 0/TJ, 0/SJ, 0/muscle tenderness or weakness LLE: 0/TJ, 0/SJ, 0/muscle tenderness or weakness Painful abduction right shoulder Assessment: Encounter Diagnoses Name Primary? Chronic right-sided low back pain with right-sided sciatica Yes ??? Chronic pain syndrome ??? Rheumatoid arthritis of multiple sites with negative rheumatoid factor ??? Triceps tendonitis Poorly controlled ra Chronic pain lbp same meds and steroid inj for triceps tendonitis Plan: Plan Under sterile condition, 2 cc's of tac with 1 cc 2 were injected in the right shoulder triceps tendon. 0 cc's of synovial fluid were aspirated. Patient tolerated procedure well without complications. Orders Placed This Encounter ??? DISCONTD: oxyCODONE-acetaminophen (PERCOCET) 5-325 MG tablet Sig: Take 1 Tab by mouth every 6 hours as needed for Pain Dx: 714.0 RA Earliest Fill Date: 01/04/17 Dispense: 120 Tab Refill: 0 ??? DISCONTD: gabapentin (NEURONTIN) 300 MG capsule Si Cap 2 times daily Dispense: 180 Cap Refill: 1 ??? DISCONTD: oxyCODONE-acetaminophen (PERCOCET) 5-325 MG tablet Sig: Take 1 Tab by mouth every 6 hours as needed for Pain Dx: 714.0 RA Dispense: 120 Tab Refill: 0 ??? gabapentin (NEURONTIN) 300 MG capsule Si Cap 2 times daily Dispense: 180 Cap Refill: 1 ??? oxyCODONE-acetaminophen (PERCOCET) 5-325 MG tablet Sig: Take 1 Tab by mouth every 6 hours as needed for Pain Dx: 714.0 RA Dispense: 120 Tab Refill: 0 Follow up in office in 4 weeks documented in this encounter Plan of Treatment Upcoming Encounters Date Type Department Care Team (Late st Contact Info) Description 06/03/2024 1:00 PM CHUCKING AND SAWING MACHINE OPERATOR Appointment [facility] - Rheumatology [address] [place] [address] 06/03/2024 2:00 PM CHUCKING AND SAWING MACHINE OPERATOR Office Visit [facility] - Rheumatology [address] [place] [address] Gloria Smith MD [address] [place] [phone] documented as of this encounter Visit Diagnoses Diagnosis Chronic right-sided low back pain with right-sided sciatica- Primary Chronic pain syndrome Rheumatoid arthritis of multiple sites with negative rheumatoid factor (HCC) Triceps tendonitis Other enthesopathy of elbow region documented in this encounter Administered Medications Inactive Administered Medications - up to 3 most recent administrations Medication Order MAR Action Action Date Dose Rate Site lidocaine (XYLOCAINE MPF) 2 % injection Intra-articular, ONCE, 1 dose, On Sun01/05/17 at 0900 $ Given 01/05/2017 8:31 AM CDT Right Shoulder triamcinolone acetonide (KENALOG-40) injection 80 mg 80 mg, Intra-articular, ONCE, 1 dose, On Sun01/05/17 at 0900, Shake well before using. $ Given 01/05/2017 8:32 AM CDT 80 mg Righ t Shoulder documented in this encounter Care Teams Plaster Form Maker Relationship Specialty Start Date End Date Tomas Hyman MD [address] [facility] [address] [place] [address] PCP - General Family Medicine 12/31/13 05/09/18 Isidro Heredia MD Rheumatology 02/09/11 documented as of this encounter
--- OUTSIDE RECORDS SUMMARY | 2024-05-03 04:09 | XMS_ITS | Encounter Summary ---
Author Organization [facility] Address [address] [place] [address] Care Team Providers Care Supervisor Winter Name Role Phone Isidro Heredia MD Unavailable Tomas Hyman MD Primary Care Provider [phone] Encounter Details Date Type Department Care Team (Late st Contact Info) Description 09/21/2016 Orders Only [facility] Medical [facility] - Rheumatology [address] [place] [address] [phone] Isidro Heredia MD [address] [place] [id number] Rheumatoid arthritis involving multiple sites, unspecified [...] Progress Notes * Dixie Beard LPN - 09/28/2016 2:50 PM CDT Sent via my chart * Isidro Heredia MD - 09/28/2016 1:01 PM CDT plts 146 sl low mtx ok meron documented in this encounter Plan of Treatment Upcoming Encounters Date Type Department Care Team (Late st Contact Info) Description 06/03/2024 1:00 PM HOUSING RELOCATION Appointment [facility] - Rheumatology [address] [place] [address] [phone] 06/03/2024 2:00 PM HOUSING RELOCATION Office Visit [facility] - Rheumatology [address] [place] [address] Gloria Smith MD [address] [place] [phone] documented as of this encounter Procedures Procedure Name Priority Date/Time Associated Diagnosis Comments ERYTHROCYTE SEDIMENTATION RATE Routine 09/21/2016 3:59 PM CDT Rheumatoid arthritis involving multiple sites, unspecified rheumatoid factor presence CBC W AUTO DIFFERENTIAL Routine 09/21/2016 3:59 PM CDT Rheumatoid arthritis involving multiple sites, unspecified rheumatoid factor presence COMPREHENSIVE METABOLIC PANEL Routine 09/21/2016 3:59 PM CDT Rheumatoid arthritis involving multiple sites, unspecified rheumatoid factor presence documented in this encounter Results * SED RATE AUTO (ESR) (09/21/2016 3:59 PM CDT) Erythrocyte Sedimentation Rate Westergren 7 0 - 20 mm/hr [facility] INSURANCE BILL Blood BLOOD SPECIMEN / Unknown 09/21/2016 3:59 PM CDT 09/21/2016 Narrative Resulting Agency Comment [facility] [address] [address] ??[place] [phone] Isidro Heredia MD LAB - HEMATOLOGY OR DERABLES [facility] INSURANCE BILL [address] [place] [address] * (ABNORMAL) CBC W AUTO DIFFERENTIAL (09/21/2016 3:59 PM CDT) WBC 8.9 4.4 - 10.7 x10E9/L [facility] INSURANCE BILL RBC 3.95 3.80 - 5.40 x10E12/L [facility] INSURANCE BILL Hemoglobin 12.6 12.0 - 17.6 gm/dL [facility] INSURANCE BILL Hematocrit 39.8 35.2 - 51.7 % [facility] INSURANCE BILL MCV 100.8(H) 80.7 - 98.3 fL [facility] INSURANCE BILL MCH 31.9 26.7 - 34.0 pg [facility] INSURANCE BILL MCHC 31.7 30.8 - 35.9 gm/dL [facility] INSURANCE BILL RDW 14.5 12.1 - 14.9 % [facility] INSURANCE BILL Platelet Count 146(L) 153 - 416 x10E9/L [facility] INSURANCE BILL Comment:MPV FL BLOOD (SSM) 1 2.6 fl 9.4-12.9 Granulocytes % 69.4 44.0 - 73.0 % [facility] INSURANCE BILL Lymphocytes % 21.9 20.0 - 43.0 % [facility] INSURANCE BILL Monocytes % 6.7 5.0 - 13.0 % [facility] INSURANCE BILL Eosinophils % 0.9 0.0 - 6.0 % [facility] INSURANCE BILL Basophils % 0.3 0.0 - 2.0 % [facility] INSURANCE BILL Granulocytes Absolute 6.19 2.01 - 7.14 x10E9/L [facility] INSURANCE BILL Lymphocytes Absolute 1.96 1.07 - 3.94 x10E9/L [facility] INSURANCE BILL Monocytes Absolute 0.60 0.26 - 1.07 x10E9/L [facility] INSURANCE BILL Eosinophils Absolute 0.08 0 - 0.47 x10E9/L [facility] INSURANCE BILL Basophils Absolute 0.03 0 - 0.08 x10E9/L [facility] INSURANCE BILL Immature Granulocytes 0.8 0 - 1 % [facility] INSURANCE BILL Immature Granulocytes Absolute 0.07(H) 0.00 - 0.06 x10E9/L [facility] INSURANCE BILL nRBC 0 /100 WBC [facility] INSURANCE BILL Blood BLOOD SPECIMEN / Unknown 09/21/2016 3:59 PM CDT 09/21/2016 Narrative Resulting Agency Comment [facility] [place] [address] [address] ??[place] [phone] Isidro Heredia MD LAB - HEMATOLOGY OR DERABLES [facility] INSURANCE BILL [address] [place] [address] * COMPREHENSIVE METABOLIC PANEL (09/21/2016 3:59 PM CDT) Glucose 102 74 - 106 mg/dL [facility] INSURANCE BILL BUN 21 7 - 21 mg/dL [facility] INSURANCE BILL Creatinine 0.95 0.50 - 1.30 mg/dL [facility] INSURANCE BILL eGFR by MDRD >60 >60 mL/min/1.7 3m2 [facility] INSURANCE BILL eGFR by MDRD >60 >60 mL/min/1.7 3m2 [facility] INSURANCE BILL Sodium 139 136 - 145 mmol/L [facility] INSURANCE BILL Potassium 4.6 3.5 - 5.1 mmol/L [facility] INSURANCE BILL Chloride 104 98 - 107 mmol/L [facility] INSURANCE BILL CO2 27 22 - 31 mmol/L [facility] INSURANCE BILL Calcium 8.8 8.5 - 10.1 mg/dL [facility] INSURANCE BILL Protein Total 6.6 6.4 - 8.2 gm/dL [facility] INSURANCE BILL Albumin 4.0 3.4 - 5.0 gm/dL [facility] INSURANCE BILL Bilirubin Total 0.7 0.2 - 1.0 mg/dL [facility] INSURANCE BILL Alkaline Phosphatase 47 38 - 126 U/L [facility] INSURANCE BILL AST 23 5 - 40 U/L [facility] INSURANCE BILL ALT 48 13 - 61 U/L [facility] INSURANCE BILL Blood BLOOD SPECIMEN / Unknown 09/21/2016 3:59 PM CDT 09/21/2016 Narrative Resulting Agency Comment [facility] [address] [address] ??[place] [phone] Isidro Heredia MD LAB - CHEMISTRY ORD ERABLES [facility] INSURANCE BILL [address] [place] [address] documented in this encounter Visit Diagnoses Diagnosis Rheumatoid arthritis involving multiple sites, unspecified rheumatoid factor presence (HCC)- Primary documented in this encounter Care Teams Supervisor Winter Relationship Specialty Start Date End Date Tomas Hyman MD [address] [place] [address] PCP - General Family Medicine 12/31/13 05/09/18 Isidro Heredia MD Rheumatology 02/09/11 documented as of this encounter
--- OUTSIDE RECORDS SUMMARY | 2024-05-03 04:09 | XMS_ITS | Encounter Summary ---
Author Organization [facility] Address [address] [facility] [place] [address] Care Team Providers Care Phone Banker Name Role Phone Isidro Heredia MD Unavailable [phone] Tomas Hyman MD Primary Care Provider [phone] Reason for Visit * Reason Comments Refill Request Encounter Details Date Type Department Care Team (Late Contact Info) Description 11/18/2016 Refill [facility] - Rheumatology [address] [place] [address] Isidro Heredia MD [address] [place] [address] Refill Request Social History Tobacco Use [...] (Late Contact Info) Description 06/03/2024 1:00 PM FINANCIAL QUANTITATIVE ANALYST Appointment [facility] - Rheumatology [address] [place] [address] 06/03/2024 2:00 PM FINANCIAL QUANTITATIVE ANALYST Office Visit [facility] Rheumatology [address] [place] [address] Gloria Smith MD [address] [place], [place] [address], [place] [address] documented as of this encounter Visit Diagnoses Not on filedocumented in this encounter Care Teams Phone Banker Relationship Specialty Start Date End Date Tomas Hyman MD [address] [place] [address] PCP - General Family Medicine 12/31/13 05/09/18 Isidro Heredia MD Rheumatology 02/09/11 documented as of this encounter
--- OUTSIDE RECORDS SUMMARY | 2024-05-03 04:09 | XMS_ITS | Encounter Summary ---
Author Organization [facility] Address [address] [place] [address] Care Team Providers Care Supervisor Paper Products Name Role Phone Isidro Heredia MD Unavailable [phone] Tomas Hyman MD Primary Care Provider [phone] Encounter Details Date Type Department Care Team (Latest Contact Info) Description 12/21/2016 10:15 AM CDT - 12/21/2016 11:59 PM CDT Hospital Encounter [facility] [address] [place] [address] [place] [address] [place] [address] Discharge Disposition: Home or Self Care Social [...] Sign Reading Time Taken Comments Blood Pressure 141/90 12/21/2016 11:11 AM CDT Pulse 86 12/21/2016 11:11 AM CDT Temperature - - Respiratory Rate 16 12/21/2016 11:11 AM CDT Oxygen Saturation 97% 12/21/2016 11:11 AM CDT Inhaled Oxygen Concentration - - Weight - - Height - - Body Mass Index - - documented in this encounter Discharge Instructions * Patient Instructions* Ashlie Henao RN - 12/21/2016 10:46 AM CDT [facility] Pain Discharge Instructions Selective [...] headache, or any other problems, please call [phone] or after hours callDr. Mirza at [phone] and tell them your physician's name. The exchange will alert the physician library paraprofessional. If sedation is given: No sedation given. For Your Next Visit: No additional instructions. Other Instructions: May remove band-aid in 12 Hours. Return KIMBERLEY 2 in 1 week. documented in this encounter Medications at Time of Discharge Medication Sig Dispensed Refills Start Date End Date atorvastatin (LIPITOR) 40 MG tablet Take 1 (one) tablet by mouth at bedtime Ytyzwocwmix-Taimkwfcw-P it C-Mn (GLUCOSAMINE CHONDR 1500 COMPLX PO) [...] Pain Dx: 714.0 RA Earliest Fill Date: 11/24/16 120 Tab 11/24/2016 01/04/2017 pantoprazole EC (PROTONIX) 40 MG tablet Take [...] every 3 hours as needed 11/21/2016 09/05/2018 topiramate (TOPAMAX) 50 MG tablet Take 50 mg by mouth once daily 10/24/2017 documented as of this encounter Procedure Notes * Alejandro Mirza MD - 12/21/2016 11:23 AM CDTAssociated Order(s): PAIN MANAGEMENT PROCEDURE TIME Lumbar Epidural L5-S1 Patient Name: Chalino Deng Provider: Alejandro Mirza MD Date of : 1960 Date: 12/21/2016 PCP: Tomas Hyman MD Allergies: Allergies as of 12/21/2016 - Carl as Reviewed 12/21/2016 Allergen Reaction Noted ??? Plaquenil [hydroxychloroquine sulfate] 05/15/2011 ??? Tuberculin ppd 07/27/2008 Pt. presents today for an injection. Procedure: Epidural injection L5-S1 Diagnosis/Indication:Low back and/or leg pain M54.17, M48.06, M51.17 Other conservative therapies and/or treatments provided inadequate pain relief. Informed Consent: After the patient was informed of the risks and benefits of the procedure and allquestions were answered, consent was signed.Risks benefits, and alternative were discussed including risk of infection, bleeding , nerve damage, worsening pain, no pain relief whatsoever, transient increase in blood pressure, blood sugar, fluid retention,possibility of headache, possibility of shingles, or any other viral outbreak secondary to immunosuppressant effects of steroid use Prep: Pt identified, proper procedure identified, site identified, and marked by Dr. Mirza. Pt is not on Coumadin, Plavix or other blood thinners. Responsible rickshaw driver is not needed due to the patient not having sedation. The patient was placed in a prone position and was prepped with Chloraprep. Procedure: Lidocaine 1% was injected with a 25 gauge needle at L5-S1 verifying placement with the guided fluoroscopy. An 18 gauge Touhy needle was placed into the epidural space using loss of resistance technique with normal saline. No cerebral spinal fluid or blood was aspirated prior to the injection. 80 milligrams of Depomedrol, saline and Omnipaque: 240 1cc were injected into the epidural space. Complications: None Estimated Blood Loss: None Omnipaque Waste: 240 9cc The patient tolerated the procedure well and there were no complications. The patient was allowed to rest and recover after the procedure. The patient remained in stable condition with no apparent complications. Vital signs stable. Injection site clean, dry and intact. Post procedure instructions were given to the patient and a follow up appointment was confirmed. The patient was discharged with information on how to reach the clinic at anytime for questions or concerns. Patient ambulatory, denies complaints, discharged to home. Patient survey given. Procedure code: Epi Lum/cad, Flouro Follow Up: 1 week Alejandro Mirza MD documented in this encounter Plan of Treatment Upcoming Encounters Date Type Department Care Team (Late st Contact Info) Description 06/03/2024 1:00 PM ICT SYSTEMS TEST ENGINEER Appointment [facility] - Rheumatology [address] [place] [address] 06/03/2024 2:00 PM ICT SYSTEMS TEST ENGINEER Office Visit [facility] - Rheumatology [address] [place] [address] Gloria Smith MD [address] [place] [phone] documented as of this encounter Procedures Procedure Name Priority Date/Time Associated Diagnosis Comments PAIN MANAGEMENT PROCEDURE TIME Routine 12/21/2016 11:09 AM CDT Radiculopathy of lumbosacral region Low back pain, unspecified back pain laterality, unspecified chronicity, with sciatica presence unspecified documented in this encounter Results * PAIN MANAGEMENT PROCEDURE TIME (12/21/2016 11:09 AM CDT) Anatomical Region Laterality Modality X-Ray Angiograph y Narrative 12/21/2016 11:23 AM CDT Alejandro Mirza MD ? 12/21/2016 11:23 AM Lumbar Epidural L5-S1 Patient Name: Chalino Degn ?Provider: Alejandro Mirza MD Date of : 1960 ?Date: 12/21/2016 PCP: Tomas Hyman MD Allergies: Allergies as of 12/21/2016 - Carl as Reviewed 12/21/2016 Allergen Reaction Noted ? ? Plaquenil [hydroxychloroquine sulfate] ??05/15/2011 ? ? Tuberculin ppd ??07/27/2008 Pt. presents today for an injection. ? Procedure: Epidural injection L5-S1 ?? Diagnosis/Indication:Low back and/or leg pain M54.17, M48.06, M51.17 Other conservative therapies and/or treatments provided inadequate pain relief. Informed Consent: ??After the patient ??was informed of the risks and benefits of the procedure and all questions were answered, consent was signed.Risks benefits, and alternative were discussed including risk of infection, bleeding , nerve damage, worsening pain, no pain relief whatsoever, transient increase in blood pressure, blood sugar, fluid retention,possibility of headache, possibility of shingles, or any other viral outbreak secondary to immunosuppressant effects of steroid use Prep: ??Pt identified, proper procedure identified, site identified, and marked by Dr. Mirza. Pt is not on Coumadin, Plavix or other blood thinners. ??Responsible rickshaw driver is not needed due to the patient not having sedation. The patient was placed in a prone position and was prepped with Chloraprep. Procedure: ??Lidocaine 1% was injected with a 25 gauge needle at L5-S1 verifying placement with the guided fluoroscopy. ??An 18 gauge Touhy needle was placed into the epidural space using loss of resistance technique with normal saline. ??No cerebral spinal fluid or blood was aspirated prior to the injection. ??80 milligrams of Depomedrol, ??saline and Omnipaque: 240 1cc were injected into the epidural space. Complications: ??None Estimated Blood Loss: None ?Omnipaque Waste: 240 ??9cc The patient tolerated the procedure well and there were no complications. ??The patient was allowed to rest and recover after the procedure. ??The patient remained in stable condition with no apparent complications. ??Vital signs stable. ??Injection site clean, dry and intact. ??Post procedure instructions were given to the patient and a follow up appointment was confirmed. ??The patient was discharged with information on how to reach the clinic at anytime for questions or concerns. ??Patient ambulatory, denies complaints, discharged to home. ??Patient survey given. Procedure code: ??Epi Lum/cad, Flouro Follow Up: ??1 week Alejandro Mirza MD Alejandro Mirza MD DIAGNOSTIC IMAGING O RDERABLES documented in this encounter Visit Diagnoses Diagnosis Radiculopathy of lumbosacral region Thoracic or lumbosacral neuritis or radiculitis, unspecified Low back pain, unspecified back pain laterality, unspecified chronicity, with sciatica presence unspecified documented in this encounter Administered Medications Inactive Administered Medications - up to 3 most recent administrations Medication Order MAR Action Action Date Dose Rate Site iohexol (OMNIPAQUE 240) contrast Other, INTRA-PROCEDURE ONCE, 1 dose, On Gabriela 12/21/16 at 1043, Intra-epidural Administer per physician direction. $ Given - Contrast 12/21/2016 10:54 AM CDT 1 mL methylPREDNISolone acetate (DEPO-Medrol) injection 80 mg 80 mg, Epidural, INTRA-PROCEDURE ONCE, 1 dose, On Gabriela 12/21/16 at 1043, Administer per physician direction. May be administered as 80 mg unilaterally once, or 40 mg bilaterally once (2 separate doses). $ Admin. by Other Provider 12/21/2016 10:53 AM CDT 80 mg documented in this encounter Care Teams Supervisor Paper Products Relationship Specialty Start Date End Date Tomas Hyman MD [address] [place] [address] PCP - General Family Medicine 12/31/13 05/09/18 Isidro Heredia MD Rheumatology 02/09/11 documented as of this encounter
--- OUTSIDE RECORDS SUMMARY | 2024-05-03 04:09 | XMS_ITS | Encounter Summary ---
Author Organization [facility] Address [address] [facility] [place] [address] Care Team Providers Care Plastics Plater Name Role Phone Isidro Heredia MD Unavailable [phone] Tomas Hyman MD Primary Care Provider [phone] Reason for Visit * Reason Onset Date Comments Infusion 10/23/2016 Encounter Details Date Type Department Care Team (Late st Contact Info) Description 10/23/2016 Telephone [facility] Medical [facility] - Rheumatology [address] [place] [address] Isidro Heredia MD [address] [place] [address] Infusion Social History Tobacco Use Types Packs/Day [...] * Telephone Encounter - Carey Loza - 10/23/2016 3:20 PM CDT Tried to call patient to reschedule infusion and dr visit on October 26 but had to leave a message. Will need to advise patient that will most likely not be able to schedule Dr appointment on the same day. * Telephone Encounter - Patricia Bonds - 10/23/2016 2:13 PM CDT The pt needs to cancel and reschedule his appointment for infusion and with Dr. Heredia on 10/26/16. Please call. documented in this encounter Plan of Treatment Upcoming Encounters Date Type Department Care Team (Late st Contact Info) Description 06/03/2024 1:00 PM ENVIRONMENTAL HEALTH TECHNOLOGIST Appointment [facility] - Rheumatology [address] [place] [address] 06/03/2024 2:00 PM ENVIRONMENTAL HEALTH TECHNOLOGIST Office Visit [facility] - Rheumatology [address] [place] [address] Gloria Smith MD [address] [place] [phone] documented as of this encounter Visit Diagnoses Not on filedocumented in this encounter Care Teams Plastics Plater Relationship Specialty Start Date End Date Tomas Hyman MD [address] [facility] [address] [place] [address] PCP - General Family Medicine 12/31/13 05/09/18 Isidro Heredia MD Rheumatology 02/09/11 documented as of this encounter
--- OUTSIDE RECORDS SUMMARY | 2024-05-03 04:09 | XMS_ITS | Encounter Summary ---
Author Organization [facility] Address [address] [place] [address] Care Team Providers Care Ivory Carver Name Role Phone Isidro Heredia MD Unavailable [phone] Tomas Hyman MD Primary Care Provider [phone] Reason for Visit * Reason Comments Follow-up Encounter Details Date Type Department Care Team (Late st Contact Info) Description 11/23/2016 1:30 PM CDT Office Visit [facility] - Rheumatology [address] [place] [address] Isidro Heredia MD [address] [place] [address] Rheumatoid arthritis of multiple sites with 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 male is here for Chief Complaint Patient presents with ??? Follow-up HPI: On actemra mtx For ra On neurontin skelaxin For chronic pain Had bleeding Anal hemmrhoroid Has severe [facility] putting off further mando He lost 30 lb in 6 weeks Pain Level 8 in am Ankles Knees /10 better later in day Am stiffness 1 hr Global 7/10 Fatigue yes Medication Side Effects none Current [...] FOR 30 MINUTES 12 Tab 2 ??? metaxalone (SKELAXIN) 800 MG tablet TAKE 1 TABLET THREE TIMES A DAY 270 Tab 1 ??? gabapentin (NEURONTIN) 300 MG capsule TAKE 1 CAPSULE TWICE A DAY 180 Cap 1 ??? predniSONE (DELTASONE) 10 MG tablet TAKE 1 TABLET TWICE A DAY 180 Tab 1 ??? NEXIUM 40 MG capsule TAKE 1 CAPSULE DAILY BEFORE BREAKFAST 90 Cap 1 ??? atorvastatin (LIPITOR) 40 MG tablet Take 40 mg by mouth once daily ??? KRILL OIL PO Take 500 mg [...] 1 Tab by mouth once daily ??? Ziqlrhhimgs-Qpbkyirbd-Mbu C-Mn (GLUCOSAMINE CHONDR 1500 COMPLX PO) Take [...] right-sided low back pain with right-sided sciatica History Smoking Status ??? Never Smoker Smokeless [...] lungs Objective: General Appearance Physical Exam: BP 146/84 Pulse 79 Wt 111.6 kg (246 lb) BMI 35.3 kg/m2 Head: perrla, eyes no irritation, vision and hearing intact, no oral ulcers, tongue normal, throat clear Neck:supple, no bruits, adenopathy Chest: clear, no rales, rhonchi or wheezes. Heart nsr. No S3,S4, or murmurs Abdomen:soft, no masses or tenderness, no organomegaly Genitalia, Groin, Buttocks: Back: no abnormal curvature, tenderness, or muscle spasm Extremities: No edema, cyanosis, or rash RUE: 8/TJ, 6/SJ, 0/muscle tenderness or weakness LUE: 4/TJ, 4/SJ, 0/muscle tenderness or weakness RLE: 1/TJ, 1/SJ, 0/muscle tenderness or weakness LLE: 1/TJ, 10/SJ, 0/muscle tenderness or weakness Knees Assessment: Encounter Diagnoses Name Primary? Rheumatoid arthritis of multiple sites with negative rheumatoid factor Yes ??? Chronic pain syndrome ??? Chronic right-sided low back pain with right-sided sciatica poorly controlled chronic pain and ra same meds Plan: Plan No orders of the defined types were placed in this encounter. Follow up in office in 4 weeks documented in this encounter Plan of Treatment Upcoming Encounters Date Type Department Care Team (Late st Contact Info) Description 06/03/2024 1:00 PM IT PROJECT LEAD Appointment [facility] - Rheumatology [address] [place] [address] [phone] 06/03/2024 2:00 PM IT PROJECT LEAD Office Visit [facility] - Rheumatology [address] [place] [address] [phone] Gloria Smith MD [address] [place] [phone] documented as of this encounter Visit Diagnoses Diagnosis Rheumatoid arthritis of multiple sites with negative rheumatoid factor (HCC)- Primary Chronic pain syndrome Chronic right-sided low back pain with right-sided sciatica documented in this encounter Care Teams Ivory Carver Relationship Specialty Start Date End Date Tomas Hyman MD [address] [facility] [address] [place], [place] [phone] PCP - General Family Medicine 12/31/13 05/09/18 Isidro Heredia MD Rheumatology 02/09/11 documented as of this encounter
--- OUTSIDE RECORDS SUMMARY | 2024-05-03 04:09 | XMS_ITS | Encounter Summary ---
Author Organization [facility] Address [address] [facility] [place] [address] Care Team Providers Care Automotive Airconditioning Mechanic Name Role Phone Isidro Heredia MD Unavailable [phone] Tomas Hyman MD Primary Care Provider [phone] Reason for Visit * Reason Comments Refill Request Encounter Details Date Type Department Care Team (Late Contact Info) Description 12/23/2016 Refill [facility] - Rheumatology [address] [place] [address] Isidro Heredia MD [address] [place] [address] Refill Request Social History Tobacco Use [...] (Late Contact Info) Description 06/03/2024 1:00 PM DIRECTOR EAST COAST SALES Appointment [facility] - Rheumatology [address] [place] [address] 06/03/2024 2:00 PM DIRECTOR EAST COAST SALES Office Visit [facility] Rheumatology [address] [place] [address] Gloria Smith MD [address] [place], [place] [address] [address] documented as of this encounter Visit Diagnoses Not on filedocumented in this encounter Care Teams Automotive Airconditioning Mechanic Relationship Specialty Start Date End Date Tomas Hyman MD [address] [place] [address] PCP - General Family Medicine 12/31/13 05/09/18 Isidro Heredia MD Rheumatology 02/09/11 documented as of this encounter
--- OUTSIDE RECORDS SUMMARY | 2024-05-03 04:09 | XMS_ITS | Encounter Summary ---
Author Organization [facility] Address [address] [facility] [place] [address] Care Team Providers Care Openstack Cloud Consulting Architect Name Role Phone Isidro Heredia MD Unavailable [phone] Tomas Hyman MD Primary Care Provider [phone] Reason for Visit * Reason Comments Follow-up Medication Check tocilizumba Medication Problem NExium no longer cov ered ( omeprazole perfered ) Refill Request naproxen Narcotic Refill Percocet Encounter Details Date Type Department Care Team (Late st Contact Info) Description 09/21/2016 2:00 PM CDT Office Visit [facility] - Rheumatology [address] [place] [address] Isidro Heredia MD [address] [place] [address] Chronic right-sided low back pain with right-sided sciatica (Primary Dx); Rheumatoid arthritis of multiple sites with negative rheumatoid factor (HCC); Chronic pain syndrome; SOB (shortness of breath) on exertion Social History Tobacco Use Types Packs/Day Years [...] Sign Reading Time Taken Comments Blood Pressure 150/85 09/21/2016 2:26 PM CDT Pulse 87 09/21/2016 2:26 PM CDT Temperature - - Respiratory Rate - - Oxygen Saturation - - Inhaled Oxygen Concentration - - Weight 120.7 kg (266 lb) 09/21/2016 2:26 PM CDT Height - - Body Mass Index 38.17 01/11/2016 3:12 PM CDT documented in this encounter Progress Notes * Isidro Heredia MD - 09/21/2016 2:39 PM CDT Subjective: Chalino Deng 55 y.o. male is here for Chief Complaint Patient presents with ??? Follow-up ??? Medication Check tocilizumba ??? Medication Problem NExium no longer covered ( omeprazole perfered ) ??? Refill Request naproxen ??? Narcotic Refill Percocet HPI: On mtx actemra for ra and neurontin skelaxin for chronic pain Pain Level 8/10 legs hands shoulders neck Am stiffness 1 hr Global 7/10 Fatigue yes Medication Side Effects no He has sob with exertion fatigue weakness i reviewed all his meds Current Outpatient Prescriptions on File Prior to Visit Medication Sig Dispense Refill ??? carvedilol (COREG) 12.5 MG tablet TAKE [...] DAILY BEFORE BREAKFAST 90 Cap 1 ??? methotrexate 2.5 MG tablet TAKE 6 TABLETS EVERY 7 DAYS 72 Tab 3 ??? atorvastatin (LIPITOR) 40 MG [...] 1 Tab by mouth once daily ??? Qxopaghgqhn-Sfpsfvyjq-Uga C-Mn (GLUCOSAMINE CHONDR 1500 COMPLX PO) Take [...] lungs Objective: General Appearance Physical Exam: BP 150/85 Pulse 87 Wt 120.7 kg (266 lb) BMI 38.17 kg/m2 Head: perrla, eyes no irritation, vision and hearing intact, no oral ulcers, tongue normal, throat clear Neck:supple, no bruits, adenopathy Chest: clear, no rales, rhonchi or wheezes. Heart nsr. No S3,S4, or murmurs He has dec bs bilat Abdomen:soft, no masses or tenderness, no organomegaly Genitalia, Groin, Buttocks: Back: no abnormal curvature, tenderness, or muscle spasm Extremities: No edema, cyanosis, or rash RUE: 8/TJ, 2/SJ, 0/muscle tenderness or weakness genl swelling in hands LUE: 8/TJ, 2/SJ, 0/muscle tenderness or weakness RLE: 0/TJ, 0/SJ, 0/muscle tenderness or weakness LLE: 0/TJ, 0/SJ, 0/muscle tenderness or weakness Assessment: Encounter Diagnoses Name Primary? Chronic right-sided low back pain with right-sided sciatica Yes ??? Rheumatoid arthritis of multiple sites with negative rheumatoid factor ??? Chronic pain syndrome ??? SOB (shortness of breath) on exertion poorly controlled ra Chronic pain and lbp same meds hold naprosyn Plan: Plan Orders Placed This Encounter ??? XR CHEST PA AND LATERAL Standing Status: Future Standing Expiration Date: 09/21/2017 Order Specific Question: Exam to be performed? Answer: Per Radiologist protocol ??? oxyCODONE-acetaminophen (PERCOCET) 5-325 MG tablet Sig: Take 1 Tab by mouth every 6 hours as needed for Pain Dx: 714.0 RA Dispense: 120 Tab Refill: 0 ??? pantoprazole (PROTONIX) 40 MG packet Sig: Take 1 Packet by mouth once daily Dispense: 30 Each Refill: 5 ??? naproxen (NAPROSYN) 500 MG tablet Si Tab 2 times daily Dispense: 180 Tab Refill: 2 Follow up in office in 4 weeks documented in this encounter Plan of Treatment Upcoming Encounters Date Type Department Care Team (Late st Contact Info) Description 06/03/2024 1:00 PM LIFE ENRICHMENT ASSISTANT Appointment [facility] - Rheumatology [address] [place] [address] 06/03/2024 2:00 PM LIFE ENRICHMENT ASSISTANT Office Visit [facility] - Rheumatology [address] [place] [address] Gloria Smith MD [address] [place] [phone] documented as of this encounter Results * XR CHEST PA AND LATERAL (09/21/2016 3:52 PM CDT) Anatomical Region Laterality Modality Chest Radiographic Reena [...] x-ray. Isidro Heredia MD DIAGNOSTIC IMAGING ORDERABLES documented in this encounter Visit Diagnoses Diagnosis Chronic right-sided low back pain with right-sided sciatica- Primary Rheumatoid arthritis of multiple sites with negative rheumatoid factor (HCC) Chronic pain syndrome SOB (shortness of breath) on exertion Shortness of breath SOB (shortness of breath) on exertion Shortness of breath documented in this encounter Care Teams Openstack Cloud Consulting Architect Relationship Specialty Start Date End Date Tomas Hyman MD [address] [facility] [address] [place] [address] PCP - General Family Medicine 12/31/13 05/09/18 Isidro Heredia MD Rheumatology 02/09/11 documented as of this encounter
--- OUTSIDE RECORDS SUMMARY | 2024-05-03 04:09 | XMS_ITS | Encounter Summary ---
Author Organization [facility] Address [address] [facility] [place] [address] Care Team Providers Care Valve Tester Name Role Phone Isidro Heredia MD Unavailable [phone] Tomas Hyman MD Primary Care Provider [phone] Encounter Details Date Type Department Care Team (Latest Contact Info) Description 12/28/2016 11:22 AM CDT - 12/28/2016 11:59 PM CDT Hospital Encounter [facility] Pain Care [address] [place] [address] [place] [address] [place] [address] Discharge Disposition: Home or Self Care Social [...] Sign Reading Time Taken Comments Blood Pressure 137/87 12/28/2016 12:28 PM CDT Pulse 70 12/28/2016 12:28 PM CDT Temperature - - Respiratory Rate 16 12/28/2016 12:28 PM CDT Oxygen Saturation 97% 12/28/2016 12:28 PM CDT Inhaled Oxygen Concentration - - Weight - - Height - - Body Mass Index - - documented in this encounter Discharge Instructions * Patient Instructions* Sagrario Littlejohn RN - 12/28/2016 11:41 AM CDT [facility] Procedure Center Pain Discharge Instructions Selective [...] headache, or any other problems, please call [phone] or after hours callDr. Mirza at [phone] and tell them your physician's name. The exchange will alert the physician console attendant. If sedation is given: No sedation given. For Your Next Visit: No additional instructions. Other Instructions: May remove band-aid in 12 Hours. Return in 2 weeks for KIMBERLEY #3. documented in this encounter Medications at Time of Discharge Medication Sig Dispensed Refills Start Date End Date atorvastatin (LIPITOR) 40 MG tablet Take 1 (one) tablet by mouth at bedtime Thvdlnrausd-Wdtxgqfif-P it C-Mn (GLUCOSAMINE CHONDR 1500 COMPLX PO) [...] Progress Notes * Alejandro Mirza MD - 12/28/2016 11:33 AM CDT History and physical completed on 12/19/16. Was reviewed today and no changes noted. documented in this encounter Procedure Notes * Alejandro Mirza MD - 12/28/2016 12:44 PM CDTAssociated Order(s): PAIN MANAGEMENT PROCEDURE TIME Lumbar Epidural L5-S1 Patient Name: Chalino Deng Provider: Alejandro Mirza MD Date of : 1960 Date: 12/28/2016 PCP: Tomas Hyman MD Allergies: Allergies as of 12/28/2016 - Carl as Reviewed 12/28/2016 Allergen Reaction Noted ??? Plaquenil [hydroxychloroquine sulfate] [...] Coumadin, Plavix or other blood thinners. Responsible minibus driver is not needed due to the [...] st Contact Info) Description 06/03/2024 1:00 PM SQL SSIS DEVELOPER Appointment [facility] - Rheumatology [address] [place] [address] [phone] 06/03/2024 2:00 PM SQL SSIS DEVELOPER Office Visit [facility] - Rheumatology [address] [place] [address] [phone] Gloria Smith MD [address] [place] [phone] documented as of this encounter Procedures Procedure Name Priority Date/Time Associated Diagnosis Comments PAIN MANAGEMENT PROCEDURE TIME Routine 12/28/2016 12:25 PM CDT Radiculopathy of lumbosacral region Low back pain, unspecified back pain laterality, unspecified chronicity, with sciatica presence unspecified documented in this encounter Results * PAIN MANAGEMENT PROCEDURE TIME (12/28/2016 12:25 PM CDT) Anatomical Region Laterality Modality X-Ray Angiograph y Narrative 12/28/2016 12:44 PM CDT Alejandro Mirza MD ? 12/28/2016 12:44 PM Lumbar Epidural L5-S1 Patient Name: Chalino Deng ?Provider: Alejandro Mirza MD Date of : 1960 ?Date: 12/28/2016 PCP: Tomas Hyman MD Allergies: Allergies as of 12/28/2016 - Carl as Reviewed 12/28/2016 Allergen Reaction Noted ? ? Plaquenil [hydroxychloroquine [...] Coumadin, Plavix or other blood thinners. ??Responsible minibus driver is not needed due to the [...] Estimated Blood Loss: None ?Omnipaque Waste: 240 9cc The patient tolerated the [...] Dose Rate Site iohexol (OMNIPAQUE 240) contrast Intravenous, CONTRAST ONCE, Starting on Gabriela 12/28/16 at 1140, Until 12/29/16 at 0119 $ Given - Contrast 12/28/2016 11:56 AM CDT 1 mL methylPREDNISolone acetate (DEPO-Medrol) injection 80 mg 80 mg, Intramuscular, INTRA-PROCEDURE ONCE, 1 dose, On Gabriela 12/28/16 at 1140 $ Admin. by Other Provider 12/28/2016 11:56 AM CDT 80 mg Back documented in this encounter Care Teams Valve Tester Relationship Specialty Start Date End Date Tomas Hyman MD [address] [facility] [address] [place] [address] PCP - General Family Medicine 12/31/13 05/09/18 Isidro Heredia MD Rheumatology 02/09/11 documented as of this encounter
--- OUTSIDE RECORDS SUMMARY | 2024-05-03 04:09 | XMS_ITS | Encounter Summary ---
Author Organization [facility] Address [address] [place] [address] Care Team Providers Care Karate Instructor Name Role Phone Isidro Heredia MD Unavailable [phone] Tomas Hyman MD Primary Care Provider [phone] Encounter Details Date Type Department Care Team (Late st Contact Info) Description 09/21/2016 3:46 PM CDT - 09/21/2016 11:59 PM T Hospital Encounter [facility] Urgent Care - Medical Imaging [address] [place] [address] Isidro Heredia MD [address] [place] [address] Discharge Disposition: Home or Self Care [...] 1 (one) tablet by mouth at bedtime Fuppvoydjhv-Potmopjcz-O it C-Mn (GLUCOSAMINE CHONDR 1500 COMPLX PO) [...] st Contact Info) Description 06/03/2024 1:00 PM METAL FURNITURE GLAZIER Appointment [facility] - Rheumatology [address] [place] [address] 06/03/2024 2:00 PM METAL FURNITURE GLAZIER Office Visit [facility] - Rheumatology [address] [place] [address] Gloria Smith MD [facility] [place] [phone] documented as of this encounter Procedures Procedure Name Priority Date/Time Associated Diagnosis Comments XR CHEST 2VW Routine 09/21/2016 3:52 PM CDT SOB (shortness of breath) on exertion documented in this encounter Results * XR CHEST PA [...] documented in this encounter Visit Diagnoses Diagnosis SOB (shortness of breath) on exertion Shortness of breath documented in this encounter Care Teams Karate Instructor Relationship Specialty Start Date End Date Tomas Hmyan MD [address] [place] [address] PCP - General Family Medicine 12/31/13 05/09/18 Isidro Heredia MD Rheumatology 02/09/11 documented as of this encounter
--- OUTSIDE RECORDS SUMMARY | 2024-05-03 04:09 | XMS_ITS | Encounter Summary ---
Author Organization [facility] Address [address] [place] [place] [address] Care Team Providers Care Heel Gummer Name Role Phone Isidro Heredia MD Unavailable Tomas Hyman MD Primary Care Provider [phone] Reason for Visit * Reason Comments Refill Request Encounter Details Date Type Department Care Team (Late Contact Info) Description 12/16/2016 Refill [facility] - Rheumatology [address] [place] [address] Isidro Heredia MD [address] [place] [address] Refill Request Social History Tobacco Use [...] (Late Contact Info) Description 06/03/2024 1:00 PM ADVERTISING INSERTER Appointment [facility] - Rheumatology [address] [place] [address] 06/03/2024 2:00 PM ADVERTISING INSERTER Office Visit [facility] Rheumatology [address] [place] [address] Gloria Smith MD [address] [place], [place] [address] [address] documented as of this encounter Visit Diagnoses Not on filedocumented in this encounter Care Teams Heel Gummer Relationship Specialty Start Date End Date Tomas Hyman MD [address] [place] [address] PCP - General Family Medicine 12/31/13 05/09/18 Isidro Heredia MD Rheumatology 02/09/11 documented as of this encounter
--- OUTSIDE RECORDS SUMMARY | 2024-05-03 04:09 | XMS_ITS | Encounter Summary ---
Author Organization [facility] Address [address] [facility] [place] [address] Care Team Providers Care Anti Tank Missileman Name Role Phone Isidro Heredia MD Unavailable Tomas Hyman MD Primary Care Provider [phone] Reason for Visit * Treatment (Routine) - Closed Specialty Diagnoses / Procedures Referred By Lawrence shah Referred To Contact [place] [id number] [address] [facility] Pain Care [address] [place] [address] Referral ID Status Reason Start Date Expiration Date Visits Re quested Visits Authorized [id number] Closed 12/21/2016 06/19/2017 1 3 Encounter Details Date Type Department Care Team (Latest Contact Info) Description 12/28/2016 11:15 AM CDT - 12/28/2016 11:21 AM T Hospital Encounter [facility] Pain Care [address] [place] [address] [place] [id number] [address] Discharge Disposition: Home or Self [...] 1 (one) tablet by mouth at bedtime Bpznqhczvgz-Wuayshdku-H it C-Mn (GLUCOSAMINE CHONDR 1500 COMPLX PO) [...] st Contact Info) Description 06/03/2024 1:00 PM TRUCK LOADER AND UNLOADER Appointment [facility] - Rheumatology [address] [place] [address] [phone] 06/03/2024 2:00 PM TRUCK LOADER AND UNLOADER Office Visit [facility] - Rheumatology [address] [place] [address] [phone] Gloria Smith MD [address] [place] [phone] documented as of this encounter Visit Diagnoses Not on filedocumented in this encounter Care Teams Anti Tank Missileman Relationship Specialty Start Date End Date Tomas Hyman MD [address] [facility] [address] [place] [address] PCP - General Family Medicine 12/31/13 05/09/18 Isidro Heredia MD Rheumatology 02/09/11 documented as of this encounter
--- OUTSIDE RECORDS SUMMARY | 2024-05-03 04:09 | XMS_ITS | Encounter Summary ---
Author Organization [facility] Address [address] [place] [address] Care Team Providers Care Vulcanizer Operator Name Role Phone Isidro Heredia MD Unavailable [phone] Tomas Hyman MD Primary Care Provider [phone] Reason for Visit * Reason Onset Date Comments MEDICATION REFILL 11/29/2016 Encounter Details Date Type Department Care Team (Late st Contact Info) Description 11/29/2016 Refill [facility] Medical [facility] - Rheumatology [address] [place] [address] Isidro Heredia MD [address] [place] [address] MEDICATION REFILL Social History Tobacco Use [...] encounter Miscellaneous Notes * Telephone Encounter - Yamileth Rodríguez MA - 11/29/2016 2:28 PM CDT Left message informing patient that his prescription is ready at front office help for picking machine operator. I have left several messages but cannot remember if it was his home or cell number that his pharmacy does not except the narcotics via eprescibe so he will have to take a paper script with him. * Telephone Encounter - Erika Julien - 11/29/2016 1:16 PM CDT Requested Prescriptions Pending Prescriptions Disp Refills ??? oxyCODONE-acetaminophen (PERCOCET) 5-325 MG tablet 120 Tab 0 Sig: Take 1 Tab by mouth every 6 hours as needed for Pain Dx: 714.0 RA patient states [facility] will not except escribe for pain med . He will have to picking machine operator a paper form please advise documented in this encounter Plan of Treatment Upcoming Encounters Date Type Department Care Team (Late st Contact Info) Description 06/03/2024 1:00 PM FIELD EVIDENCE TECHNICIAN Appointment [facility] - Rheumatology [address] [place] [address] [phone] 06/03/2024 2:00 PM FIELD EVIDENCE TECHNICIAN Office Visit [facility] - Rheumatology [address] [place] [address] [phone] Gloria Smith MD [address] [place] [phone] documented as of this encounter Visit Diagnoses Not on filedocumented in this encounter Care Teams Vulcanizer Operator Relationship Specialty Start Date End Date Tomas Hyman MD [address] [facility] [address] [place] [address] PCP - General Family Medicine 12/31/13 05/09/18 Isidro Heredia MD Rheumatology 02/09/11 documented as of this encounter
--- OUTSIDE RECORDS SUMMARY | 2024-05-03 04:09 | XMS_ITS | Encounter Summary ---
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, multiple sites (HCC) Procedures [place] INJECTION TOCILIZUMAB 1 MG Isidro Heredia MD [address] [facility] [place] [address] [phone] Referral ID Status Reason Start Date Expiration Date Visits Re quested Visits Authorized [id number] Closed 08/07/2016 04/29/2017 1 12 Encounter Details Date Type Department Care Team (Late st Contact Info) Description 11/23/2016 12:13 PM CDT - 11/23/2016 11:59 PM CDT Hospital Encounter [facility] Medical [facility] - Rheumatology [address] [place] [address] Isidro Heredia MD [address] [facility] [place] [address] Discharge Disposition: Home or Self [...] Time Taken Comments Blood Pressure 146/84 11/23/2016 12:39 PM CDT Pulse 79 11/23/2016 12:39 PM CDT Temperature 36.9 ??C (98.4 ??F) 11/23/2016 1 2:39 PM CDT Respiratory Rate 16 11/23/2016 12:3 9 PM CDT Oxygen Saturation - - Inhaled Oxygen Concentration - - Weight 111.9 kg (246 lb 12.8 oz) 2016 12:39 PM CDT Height - - Body Mass Index 35.41 01/11/2016 3:12 PM CDT documented in this encounter Discharge Instructions * Discharge Instructions* Carlos Foreman RN - 11/23/2016 1:49 PM CDT Discharge Instructions [facility] Rheumatology You have received your infusion [...] through Sunday 9-5 call the office at [phone]. After hours or on the weekend call [...] 1 (one) tablet by mouth at bedtime Stntdothhpo-Ohesprsrn-U it C-Mn (GLUCOSAMINE CHONDR 1500 COMPLX PO) Take 1 Tab by mouth once daily Magnesium Citrate 100 MG TABS Take 1 (one) tablet by mouth every other day Multiple Vitamin (MULTI-VITAMIN PO) Take 1 Tab by mouth once daily ZYRTEC 10 MG TABS Take 1 (one) tablet by mouth once daily (nov alendronate (FOSAMAX) 70 MG tablet TAKE [...] A DAY 180 Tab 1 06/19/2016 12/16/2016 REFRESH PLUS 0.5 % ophthalmic solution Instill 1 Drop into both eyes every 3 hours as needed 11/21/2016 09/05/2018 topiramate (TOPAMAX) 50 MG tablet Take 50 mg by mouth once daily 10/24/2017 documented as of this encounter Progress Notes * Carlos Foreman RN - 11/23/2016 12:43 PM CDT JOSE Chalino Deng [id number] 11/23/2016 Diagnosis: Rheumatoid arthritis without rheumatoid factor, multiple sites [M06.09]. BP 146/84 Pulse 79 Temp 98.4 ??F Resp 16 Wt 111.9 kg (246 lb 12.8 oz) BMI 35.41 kg/m2 @ MEDICATIONS FOR CURRENT ENCOUNTER: ?? SCHEDULED MEDICATIONS: ?? Tocilizumab 800 mg in 0.9% NaCl 100 mL IVPB, Intravenous, Once ?? CONTINUOUS MEDICATIONS: PRN MEDICATIONS: ?? Number of 24 gauge .75 inch placed in Right hand ?? 1 attempt(s). Patient monitored throughout procedure. Tolerated well? Yes Next treatment? 4wk Carlos Foreman RN documented in this encounter Plan of Treatment Upcoming Encounters Date Type Department Care Team (Late st Contact Info) Description 06/03/2024 1:00 PM STUDENT CAREER DEVELOPMENT SPECIALIST Appointment [facility] - Rheumatology [address] [place], [place] [phone] 06/03/2024 2:00 PM STUDENT CAREER DEVELOPMENT SPECIALIST Office Visit [facility] - Rheumatology [address] [place] [phone] Gloria Smith MD [address] [place] [phone] documented as of this encounter Visit Diagnoses Diagnosis Rheumatoid arthritis of multiple sites with negative rheumatoid factor (HCC) documented in this encounter Administered Medications Inactive Administered Medications - up to 3 most recent administrations Medication Order MAR Action Action Date Dose Rate Site Tocilizumab 800 mg in 0.9% NaCl 100 mL IVPB 800 mg, Intravenous, ONCE, 1 dose, On Gabriela 11/23/16 at 1300, Stable 24hrs RT $ Given 11/23/2016 12:55 PM CDT 800 mg documented in this encounter Care Teams Wireless Communications Engineer Relationship Specialty Start Date End Date Tomas Hyman MD [address] [facility] [address] [place] [address] PCP - General Family Medicine 12/31/13 05/09/18 Isidro Heredia MD Rheumatology 02/09/11 documented as of this encounter
--- OUTSIDE RECORDS SUMMARY | 2024-05-03 04:09 | XMS_ITS | Encounter Summary ---
Author Organization [facility] Health Address [address] [facility] [place] [address] Care Team Providers Care Liquor Maker Name Role Phone Isidro Heredia MD Unavailable [phone] Tomas Hyman MD Primary Care Provider [phone] Reason for Visit * Treatment (Routine) - Closed Specialty Diagnoses / Procedures Referred By Lawrence shah Referred To Contact [place] [id number] [address] [facility] Pain Care [address] [place] [address] Referral ID Status Reason Start Date Expiration Date Visits Re quested Visits Authorized [id number] Closed 12/21/2016 06/19/2017 1 3 Encounter Details Date Type Department Care Team (Latest Contact Info) Description 12/21/2016 10:12 AM CDT - 12/21/2016 10:14 AM T Hospital Encounter [facility] Health Pain Care [address] [place] [address] [place] [address] [address] Discharge Disposition: Home or Self [...] 1 (one) tablet by mouth at bedtime Hbjckgoyxte-Xvydxcwsn-K it C-Mn (GLUCOSAMINE CHONDR 1500 COMPLX PO) [...] st Contact Info) Description 06/03/2024 1:00 PM AEROLOGIST Appointment [facility] - Rheumatology [address] [place] [address] [phone] 06/03/2024 2:00 PM AEROLOGIST Office Visit [facility] - Rheumatology [address] [place] [address] [phone] Gloria Smith MD [address] [place] [phone] documented as of this encounter Visit Diagnoses Not on filedocumented in this encounter Care Teams Liquor Maker Relationship Specialty Start Date End Date Tomas Hyman MD [address] [facility] [address] [place] [address] PCP - General Family Medicine 12/31/13 05/09/18 Isidro Heredia MD Rheumatology 02/09/11 documented as of this encounter
--- OUTSIDE RECORDS SUMMARY | 2024-05-03 04:09 | XMS_ITS | Encounter Summary ---
Author Organization [facility] Address [address] [facility] [place] [address] Care Team Providers Care Resin Shaver Name Role Phone Isidro Heredia MD Unavailable [phone] Tomas Hyman MD Primary Care Provider [phone] Reason for Visit * Reason Comments Refill Request Encounter Details Date Type Department Care Team (Late Contact Info) Description 09/19/2016 Refill [facility] - Rheumatology [address] [place] [address] Isidro Heredia MD [address] [place] [address] Refill Request Social History Tobacco Use [...] (Late Contact Info) Description 06/03/2024 1:00 PM COMPUTER SYSTEMS DESIGNER Appointment [facility] - Rheumatology [address] [place] [address] 06/03/2024 2:00 PM COMPUTER SYSTEMS DESIGNER Office Visit [facility] Rheumatology [address] [place] [address] Gloria Smith MD [address] [place], [place] [address], [place] [address] documented as of this encounter Visit Diagnoses Not on filedocumented in this encounter Care Teams Resin Shaver Relationship Specialty Start Date End Date Tomas Hyman MD [address] [place] [address] PCP - General Family Medicine 12/31/13 05/09/18 Isidro Heredia MD Rheumatology 02/09/11 documented as of this encounter
--- OUTSIDE RECORDS SUMMARY | 2024-05-03 04:10 | XMS_ITS | Encounter Summary ---
Author Organization [facility] Address [address] [facility] [place] [address] Care Team Providers Care Time Checker Name Role Phone Isidro Heredia MD Unavailable [phone] Tomas Hyman MD Primary Care Provider [phone] Reason for Visit * Reason Comments Refill Request Encounter Details Date Type Department Care Team (Late Contact Info) Description 05/23/2016 Refill [facility] - Rheumatology [address] [place] [address] Isidro eHredia MD [address] [place] [address] Refill Request Social History Tobacco Use [...] (Late Contact Info) Description 06/03/2024 1:00 PM CRANIOLOGIST Appointment [facility] - Rheumatology [address] [place] [address] 06/03/2024 2:00 PM CRANIOLOGIST Office Visit [facility] Rheumatology [address] [place] [address] Gloria Smith MD [address] [place], [place] [address], [place] [address] documented as of this encounter Visit Diagnoses Not on filedocumented in this encounter Care Teams Time Checker Relationship Specialty Start Date End Date Tomas Hyman MD [address] [place] [address] PCP - General Family Medicine 12/31/13 05/09/18 Isidro Heredia MD Rheumatology 02/09/11 documented as of this encounter
--- OUTSIDE RECORDS SUMMARY | 2024-05-03 04:10 | XMS_ITS | Encounter Summary ---
Author Organization [facility] Address [address] [facility] [place] [address] Care Team Providers Care Hydroelectric Systems Technician Name Role Phone Isidro Heredia MD Unavailable Tomas Hyman MD Primary Care Provider [phone] Reason for Visit * Reason Comments Pain Back chronic * Evaluate & Treat (Routine) - Closed Specialty Diagnoses / Procedures Referred By Lawrence shah Referred To Contact Diagnoses Rheumatoid arthritis, unspecified (HCC) Procedures ND OFFICE VISIT DURING HOURS Tomas Hyman MD [address] [place] [address] Isidro Heredia MD [address] [place] [address] Referral ID Status Reason Start Date Expiration Date Visits Re quested Visits Authorized [id number] Closed 06/08/2015 06/07/2016 6 6 Encounter Details Date Type Department Care Team (Late st Contact Info) Description 01/11/2016 3:15 PM CDT Office Visit [facility] - Rheumatology [address] [place] [address] Isidro Heredia MD [address] [place] [address] Rheumatoid arthritis of multiple sites with negative rheumatoid factor (HCC) (Primary Dx); Abnormal LFTs; Chronic right-sided low back pain with right-sided sciatica; Chronic pain syndrome; Rheumatoid arthritis of multiple 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 factor (HCC) Social History Tobacco Use [...] Sign Reading Time Taken Comments Blood Pressure 131/87 01/11/2016 3:12 PM CDT Pulse 73 01/11/2016 3:12 PM CDT Temperature - - Respiratory Rate - - Oxygen Saturation - - Inhaled Oxygen Concentration - - Weight 112.5 kg (248 lb) 01/11/2016 3:12 PM CDT Height 177.8 cm (5' 10 ) 01/11/2016 3:12 PM CDT Body Mass Index 35.58 01/11/2016 3:12 PM CDT documented in this encounter Progress Notes * Isidro Heredia MD - 01/11/2016 4:02 PM CDT Subjective: Chalino Deng 55 y.o. male is here for Chief Complaint Patient presents with ??? Pain Back chronic HPI: On actemra mtx for ra And percocet neurontin skelaxin for chronic Pain and lbp His Back is flaring Up and Needs another epid nerve injection Pain Level 6/10 lower back Am stiffness 1 hr with hot shower Global 5/10 Fatigue yes Medication Side Effects n0 Current Outpatient Prescriptions on File Prior to Visit Medication Sig Dispense Refill ??? methotrexate 2.5 MG tablet TAKE 6 TABLETS EVERY 7 DAYS 72 Tab 3 ??? atorvastatin (LIPITOR) 40 MG tablet Take 40 mg by mouth once daily ??? SKELAXIN 800 MG tablet TAKE 1 TABLET THREE TIMES A DAY 270 Tab 0 ??? gabapentin (NEURONTIN) 300 MG capsule Take 1 Cap by mouth 2 times daily 180 Cap 2 ??? predniSONE (DELTASONE) 10 MG tablet TAKE 1 TABLET TWICE A DAY 180 Tab 2 ??? NEXIUM 40 MG capsule TAKE 1 CAPSULE DAILY BEFORE BREAKFAST 90 Cap 2 ??? KRILL OIL PO Take 500 mg by mouth once daily ??? aspirin EC (ECOTRIN) 81 MG tablet Take 1 Tab by mouth once daily 90 Tab 3 ??? alendronate (FOSAMAX) 70 MG tablet TAKE 1 TABLET EVERY 7 DAYS BEFORE A MEAL IN MORNING WITH FULL GLASS OF WATER ON AN EMPTY STOMACH AND REMAIN UPRIGHT FOR 30 MINUTES 3 Tab 5 ??? carvedilol (COREG) 12.5 MG tablet Take 1 Tab by mouth 2 times daily with morning and evening meal 120 Tab 11 ??? naproxen (NAPROSYN) 500 MG tablet TAKE 1 TABLET TWICE A DAY 180 Tab 2 ??? Magnesium Citrate 100 MG TABS Take 1 Tab by mouth once daily ??? Multiple Vitamins-Minerals (OCUVITE PO) Take 1 Tab by mouth once daily ??? Multiple Vitamin (MULTI-VITAMIN PO) Take 1 Tab by mouth once daily ??? Fdjehylzdhc-Xhjqkxqus-Hvz C-Mn (GLUCOSAMINE CHONDR 1500 COMPLX PO) Take [...] back pain with right-sided sciatica History Smoking status ??? Never Smoker Smokeless tobacco ??? Never Used History Alcohol Use No [...] reviewed Objective: General Appearance Physical Exam: BP 131/87 mmHg Pulse 73 Ht 1.778 m (5' 10 ) Wt 112.492 kg (248 lb) BMI 35.58 kg/m2 Head: [...] Extremities: No edema, cyanosis, or rash RUE: 13/TJ, 2/SJ, 0/muscle tenderness or weakness LUE: 13/TJ, 2/SJ, 0/muscle tenderness or weakness RLE: 1/TJ, 0/SJ, 0/muscle tenderness or weakness LLE: 1/TJ, SJ, 0/muscle tenderness or weakness Assessment: Encounter Diagnoses Name Primary? Rheumatoid arthritis of multiple sites with negative rheumatoid factor Yes ??? Abnormal LFTs ??? Chronic right-sided low back pain with right-sided sciatica ??? Chronic pain syndrome ??? Rheumatoid arthritis of multiple 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 factor poorly controlled chronic pain ra Same meds Abn lfts ok Plan: Plan Orders Placed This Encounter ??? oxyCODONE-acetaminophen (PERCOCET) 5-325 MG tablet Sig: Take 1 Tab by mouth every 6 hours as needed for Pain Dx: 714.0 RA Dispense: 120 Tab Refill: 0 Follow up in office in 4 mo documented in this encounter Plan of Treatment Upcoming Encounters Date Type Department Care Team (Late st Contact Info) Description 06/03/2024 1:00 PM SORTER LAUNDRY ARTICLES Appointment [facility] - Rheumatology [address] [place] [address] 06/03/2024 2:00 PM SORTER LAUNDRY ARTICLES Office Visit [facility] - Rheumatology [address] [place] [address] Gloria Smith MD [address] [place] [phone] documented as of this encounter Visit Diagnoses Diagnosis Rheumatoid arthritis of multiple sites with negative rheumatoid factor (HCC)- Primary Abnormal LFTs Other abnormal blood chemistry Chronic right-sided low back pain with right-sided sciatica Chronic pain syndrome Rheumatoid arthritis of multiple 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 factor (HCC) Rheumatoid arthritis documented in this encounter Care Teams Hydroelectric Systems Technician Relationship Specialty Start Date End Date Tomas Hyman MD [address] [facility] [address] [place] [address] PCP - General Family Medicine 12/31/13 05/09/18 Isidro Heredia MD Rheumatology 02/09/11 documented as of this encounter
--- OUTSIDE RECORDS SUMMARY | 2024-05-03 04:10 | XMS_ITS | Encounter Summary ---
Author Organization [facility] Address [address] [facility] [place] [address] Care Team Providers Care Oem Sales Manager Name Role Phone Isidro Heredia MD Unavailable [phone] Tomas Hyman MD Primary Care Provider [phone] Reason for Visit * Treatment (Routine) - Closed Specialty Diagnoses / Procedures Referred By Lawrence shah Referred To Contact Infusion Therapy Nurse Diagnoses Rheumatoid arthritis without rheumatoid factor, multiple sites (HCC) Procedures [place] INJECTION TOCILIZUMAB 1 MG Isidro Heredia MD [address] [place] [address] [address] Referral ID Status Reason Start Date Expiration Date Visits Re quested Visits Authorized [id number] Closed 12/16/2015 06/07/2016 1 6 Encounter Details Date Type Department Care Team (Late st Contact Info) Description 01/11/2016 1:59 PM CDT - 01/11/2016 11:59 PM CDT Hospital Encounter [facility] Medical [facility] - Rheumatology [address] [place] [address] Isidro Heredia MD [address] [place] [address] Discharge Disposition: Home or Self [...] Time Taken Comments Blood Pressure 131/87 01/11/2016 2:12 PM CDT Pulse 73 01/11/2016 2:12 PM CDT Temperature 36.9 ??C (98.4 ??F) 01/11/2016 2:12 PM CD T Respiratory Rate 18 01/11/2016 2:12 PM CDT Oxygen Saturation - - Inhaled Oxygen Concentration - - Weight 112.5 kg (248 lb) 01/11/2016 2:12 PM CDT Height - - Body Mass Index 35.58 10/13/2015 3:55 PM CDT documented in this encounter Discharge Instructions * Discharge Instructions* Jody Sahu RN - 01/11/2016 2:16 PM CDT [place] [facility] Post Infusion instructions [...] rash or breathing problems please call your [facility] Rheumatology physician for further instructions. While most problems that occur around the time of an infusion are very mild and not dangerous, they should not be ignored. Sunday through 01-02 call the office at [phone] After hours or on the weekend call the exchange at [phone] If you have had lab work done [...] [facility] as your provider. Jody Sahu RN documented in this encounter Medications at Time of Discharge Medication Sig Dispensed Refills Start Date End Date atorvastatin (LIPITOR) 40 MG tablet Take 1 (one) tablet by mouth at bedtime Weojlotxfhy-Qyxtavcuh-L it C-Mn (GLUCOSAMINE CHONDR 1500 COMPLX PO) [...] UPRIGHT FOR 30 MINUTES 3 Tab 5 06/17/2015 08/09/2016 aspirin EC (ECOTRIN) 81 MG tablet Take 1 Tab by mouth once daily 90 Tab 3 07/19/2015 04/14/2019 carvedilol (COREG) 12.5 MG tablet Take 1 Tab by mouth 2 times daily with morning and evening meal 120 Tab 11 06/14/2015 05/23/2016 gabapentin (NEURONTIN) 300 MG capsule Take 1 Cap by mouth 2 times daily 180 Cap 2 11/15/2015 07/07/2016 KRILL OIL PO Take 500 mg by mouth once daily 09/05/2018 methotrexate 2.5 MG tablet TAKE 6 TABLETS EVERY 7 DAYS 72 Tab 3 12/15/2015 11/15/2016 Multiple Vitamins-Minerals (OCUVITE PO) Take 1 Tab by mouth once daily 10/24/2017 naproxen (NAPROSYN) 500 MG tablet TAKE 1 TABLET TWICE A DAY 180 Tab 2 04/26/2015 09/21/2016 NEXIUM 40 MG capsule TAKE 1 CAPSULE DAILY BEFORE BREAKFAST 90 Cap 2 09/13/2015 06/08/2016 oxyCODONE-acetaminophen (PERCOCET) 5-325 MG tabletIndications:Rheum atoid arthritis of multiple 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 factor (HCC) Take 1 Tab by mouth every 6 hours as needed for Pain Dx: 714.0 RA 120 Tab 0 01/11/2016 04/05/2016 predniSONE (DELTASONE) 10 MG tablet TAKE 1 TABLET TWICE A DAY 180 Tab 2 09/24/2015 06/19/2016 SKELAXIN 800 MG tablet TAKE 1 TABLET THREE TIMES A DAY 270 Tab 0 11/15/2015 03/02/2016 documented as of this encounter Progress Notes * Jody Sahu RN - 01/11/2016 2:20 PM CDT JOSE Deng [id number] 01/11/2016 Diagnosis: Rheumatoid arthritis without rheumatoid factor, multiple sites [M06.09]. Pt denies symptoms of infection or antibiotic use, no open wounds, or recent surgery, or plans for surgery in the next couple of weeks. Pt is aware that we use the 0-10 pain scale to assess discomfort. 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 front maker lockstitch pt signs consent for treatment for this infusion. BP 131/87 mmHg Pulse 73 Temp(Src) 98.4 ??F Resp 18 Wt 112.492 kg (248 lb) @ MEDICATIONS FOR CURRENT ENCOUNTER: ?? SCHEDULED MEDICATIONS: ?? Tocilizumab 800 mg in 0.9% NaCl IVPB, Intravenous, Once ?? CONTINUOUS MEDICATIONS: PRN MEDICATIONS: ?? Number of 24 gauge 3/4 inch placed in Left antecubital ?? 1 attempt(s). Patient monitored throughout procedure. Tolerated well? Yes Next treatment? 4 weeks Jody Sahu RN documented in this encounter Plan of Treatment Upcoming Encounters Date Type Department Care Team (Late st Contact Info) Description 06/03/2024 1:00 PM DRIVING SCHOOL INSTRUCTOR Appointment [facility] - Rheumatology [address] [place] [address] 06/03/2024 2:00 PM DRIVING SCHOOL INSTRUCTOR Office Visit [facility] - Rheumatology [address] [place] [address] Gloria Smith MD [address] [place] [phone] documented as of this encounter Visit Diagnoses Diagnosis Rheumatoid arthritis of multiple sites with negative rheumatoid factor (HCC) documented in this encounter Administered Medications Inactive Administered Medications - up to 3 most recent administrations Medication Order MAR Action Action Date Dose Rate Site Tocilizumab 800 mg in 0.9% NaCl IVPB 800 mg, at 100 mL/hr, Intravenous, ONCE, 1 dose, On Sun01/11/16 at 1430, 2 vials Actemra 400mg 0 waste. Stable 24hrs RT $ Given 01/11/2016 2:15 PM CDT 800 mg 100 mL/hr documented in this encounter Care Teams Oem Sales Manager Relationship Specialty Start Date End Date Tomas Hyman MD [address] [facility] [address] [place] [address] PCP - General Family Medicine 12/31/13 05/09/18 Isidro Heredia MD Rheumatology 02/09/11 documented as of this encounter
--- OUTSIDE RECORDS SUMMARY | 2024-05-03 04:10 | XMS_ITS | Encounter Summary ---
Author Organization [facility] Address [address] [facility] [place] [address] Care Team Providers Care Skidway Worker Name Role Phone Isidro Heredia MD Unavailable [phone] Tomas Hyman MD Primary Care Provider [phone] Encounter Details Date Type Department Care Team (Late st Contact Info) Description 02/23/2016 Orders Only [facility] Medical [facility] - Rheumatology [address] [place] [address] [phone] Isidro Heredia MD [address] [place] [address] Rheumatoid arthritis of multiple sites with [...] as of this encounter Progress Notes * Vee Hair - 03/01/2016 11:05 AM CDTPatient notified via maniaTV. * Isidro Heredia MD - 03/01/2016 9:15 AM CDTSl anemia Hb 11.8 plts ok 164 mtx ok meron documented in this encounter Plan of Treatment Upcoming Encounters Date Type Department Care Team (Late st Contact Info) Description 06/03/2024 1:00 PM SOFTWARE VERIFICATION ENGINEER Appointment [facility] - Rheumatology [address] [place] [address] 06/03/2024 2:00 PM SOFTWARE VERIFICATION ENGINEER Office Visit [facility] - Rheumatology [address] [place] [address] Gloria Smith MD [address] [place] [phone] documented as of this encounter Procedures Procedure Name Priority Date/Time Associated Diagnosis Comments REF LAB-SPECIMEN STATUS REPORT 02/23/2016 1:30 AM CDT ERYTHROCYTE SEDIMENTATION RATE Routine 02/23/2016 1:30 AM CDT Rheumatoid arthritis of multiple sites with negative rheumatoid factor (HCC) CBC W AUTO DIFFERENTIAL Routine 02/23/2016 1:30 AM CDT Rheumatoid arthritis of multiple sites with negative rheumatoid factor (HCC) COMPREHENSIVE METABOLIC PANEL Routine 02/23/2016 1:30 AM CDT Rheumatoid arthritis of multiple sites with negative rheumatoid factor (HCC) documented in this encounter Results * PO REF LAB-SPECIMEN STATUS REPORT (02/23/2016 1:30 AM CDT) Specimen Status Report NOT NEEDED [facility] INSURANCE BILL Comment: Test could not be performed due to degeneration of specimen. ?TEST: ??[id number] ??Sedimentation Rate-Westergren Ancillary determined the test is not needed 02/23/2016 1:30 AM CDT 02/23/2016 6:29 PM CDT Narrative Resulting Agency Comment [facility] [address] [facility] ??[facility] [phone] Isidro Heredia MD LAB - CHEMISTRY ORD ERABLES [facility] INSURANCE BILL [address] [place] [address] * SED RATE WESTERGREN (02/23/2016 1:30 AM CDT) Erythrocyte Sedimentation Rate Westergren NOT NEEDED mm/hr [facility] INSURANCE BILL Comment: Test could not be performed due to degeneration of specimen. Ancillary determined the test is not needed Blood BLOOD SPECIMEN / Unknown 02/23/2016 1:30 AM CDT 02/23/2016 6:29 PM CDT Narrative Resulting Agency Comment [facility] [address] [facility] ??[facility] [phone] Isidro Heredia MD LAB - HEMATOLOGY OR DERABLES [facility] INSURANCE BILL [address] [place] [address] * (ABNORMAL) COMPREHENSIVE METABOLIC PANEL (02/23/2016 1:30 AM CDT) Glucose 88 65 - 99 mg/dL [facility] INSURANCE BILL BUN 20 6 - 24 mg/dL [facility] INSURANCE BILL Creatinine 0.79 0.76 - 1.27 mg/dL [facility] INSURANCE BILL eGFR by MDRD 103 >59 mL/min/1.7 3 [facility] INSURANCE BILL eGFR by MDRD 119 >59 mL/min/1.7 3 [facility] INSURANCE BILL BUN/Creatinine Ratio 25(H) 9 - 20 [facility] INSURANCE BILL Sodium 144 136 - 144 mmol/L [facility] INSURANCE BILL Comment:Please note refere nce interval change Potassium 4.3 3.5 - 5.2 mmol/L [facility] INSURANCE BILL Comment:Please note refere nce interval change Chloride 103 97 - 106 mmol/L [facility] INSURANCE BILL Comment:Please note refere nce interval change CO2 20 18 - 29 mmol/L [facility] INSURANCE BILL Calcium 9.0 8.7 - 10.2 mg/dL [facility] INSURANCE BILL Protein Total 6.2 6.0 - 8.5 g/dL [facility] INSURANCE BILL Albumin 4.0 3.5 - 5.5 g/dL [facility] INSURANCE BILL Globulin Total 2.2 1.5 - 4.5 g/dL [facility] INSURANCE BILL Albumin/Globulin Ratio 1.8 1.1 - 2.5 [facility] INSURANCE BILL Bilirubin Total 0.5 0.0 - 1.2 mg/dL [facility] INSURANCE BILL Alkaline Phosphatase 59 39 - 117 IU/L [facility] INSURANCE BILL AST 22 0 - 40 IU/L [facility] INSURANCE BILL ALT 26 0 - 44 IU/L [facility] INSURANCE BILL Blood BLOOD SPECIMEN / Unknown 02/23/2016 1:30 AM CDT 02/23/2016 6:29 PM CDT Narrative Resulting Agency Comment [facility] [address] [facility] ??[facility] [phone] Isidro Heredia MD LAB - CHEMISTRY ORD ERABLES [facility] INSURANCE BILL [address] [place] [address] * (ABNORMAL) CBC W AUTO DIFFERENTIAL (02/23/2016 1:30 AM CDT) WBC 11.2(H) 3.4 - 10.8 x10E3/uL [facility] INSURANCE BILL RBC 3.67(L) 4.14 - 5.80 x10E6/uL [facility] INSURANCE BILL Hemoglobin 11.8(L) 12.6 - 17.7 g/dL [facility] INSURANCE BILL Hematocrit 33.7(L) 37.5 - 51.0 % [facility] INSURANCE BILL MCV 92 79 - 97 fL [facility] INSURANCE BILL MCH 32.2 26.6 - 33.0 pg [facility] INSURANCE BILL MCHC 35.0 31.5 - 35.7 g/dL [facility] INSURANCE BILL RDW 14.2 12.3 - 15.4 % [facility] INSURANCE BILL Platelet Count 164 150 - 379 x10E3/uL [facility] INSURANCE BILL Granulocytes % 71 % [facility] INSURANCE BILL Lymphocytes % 18 % [facility] INSURANCE B[facility] Monocytes % 9 % [facility] INSURANCE BILL Eosinophils % 2 % [facility] INSURANCE BILL Basophils % 0 % [facility] INSURANCE BILL Immature Cells NOT NEEDED [facility] INSURANCE BILL Comment:Ancillary determined the test is not needed Granulocytes Absolute 7.9(H) 1.4 - 7.0 x10E3/uL [facility] INSURANCE BILL Lymphocytes Absolute 2.1 0.7 - 3.1 x10E3/uL [facility] INSURANCE BILL [...] not needed Blood BLOOD SPECIMEN / Unknown 02/23/2016 1:30 AM CDT 02/23/2016 6:29 PM CDT Narrative Resulting Agency Comment [facility] [address] ??[facility] [phone] Isidro Heredia MD LAB - HEMATOLOGY OR DERABLES [facility] INSURANCE BILL [address] [place] [address] documented in this encounter Visit Diagnoses Diagnosis Rheumatoid arthritis of multiple sites with negative rheumatoid factor (HCC)- Primary documented in this encounter Care Teams Skidway Worker Relationship Specialty Start Date End Date Tomas Hyman MD [address] [facility] [address] [place] [address] PCP - General Family Medicine 12/31/13 05/09/18 Isidro Heredia MD Rheumatology 02/09/11 documented as of this encounter
--- OUTSIDE RECORDS SUMMARY | 2024-05-03 04:10 | XMS_ITS | Encounter Summary ---
Author Organization [facility] Address [address] [place] [address] Care Team Providers Care Deputy Attorney General Name Role Phone Isidro Heredia MD Unavailable [phone] Tomas Hyman MD Primary Care Provider [phone] Encounter Details Date Type Department Care Team (Late st Contact Info) Description 12/14/2015 Orders Only [facility] Medical [facility] - Rheumatology [address] [place] [address] [phone] Isidro Heredia MD [address] [place] [address] Rheumatoid arthritis of multiple sites with [...] Progress Notes * Yamileth Rodríguez MA - 12/20/2015 11:06 AM CDTQuick Note: Message sent via my chart regarding lab results. * Isidro Heredia MD - 12/16/2015 12:21 PM CDTQuick Note: mtx ok meron documented in this encounter Plan of Treatment Upcoming Encounters Date Type Department Care Team (Late st Contact Info) Description 06/03/2024 1:00 PM POLYMER MATERIALS CONSULTANT Appointment [facility] - Rheumatology [address] [place] [address] [phone] 06/03/2024 2:00 PM POLYMER MATERIALS CONSULTANT Office Visit [facility] - Rheumatology [address] [place] [address] Gloria Smith MD [address] [place] [address] [phone] documented as of this encounter Procedures Procedure Name Priority Date/Time Associated Diagnosis Comments ERYTHROCYTE SEDIMENTATION RATE Routine 12/14/2015 2:44 AM CDT Rheumatoid arthritis of multiple sites with negative rheumatoid factor (HCC) CBC W AUTO DIFFERENTIAL Routine 12/14/2015 2:44 AM CDT Rheumatoid arthritis of multiple sites with negative rheumatoid factor (HCC) COMPREHENSIVE METABOLIC PANEL Routine 12/14/2015 2:44 AM CDT Rheumatoid arthritis of multiple sites with negative rheumatoid factor (HCC) documented in this encounter Results * SED RATE WESTERGREN (12/14/2015 2:44 AM CDT) Erythrocyte Sedimentation Rate Westergren 4 0 - 30 mm/hr [facility] INSURANCE BILL Blood specimen (specimen) BLOOD SPECIMEN / Unknown 12/14/2015 2:44 AM CDT 12/14/2015 5:47 PM CDT Narrative Resulting Agency Comment [facility] [address] [facility] [id number] Isidro Heredia MD LAB - HEMATOLOGY OR DERABLES [facility] INSURANCE BILL [address] [place] [address] * (ABNORMAL) COMPREHENSIVE METABOLIC PANEL (12/14/2015 2:44 AM CDT) Glucose 113(H) 65 - 99 mg/dL [facility] INSURANCE BILL BUN 16 6 - 24 mg/dL [facility] INSURANCE BILL Creatinine 0.79 0.76 - 1.27 mg/dL [facility] INSURANCE BILL eGFR by MDRD 103 >59 mL/min/1.7 3 [facility] INSURANCE BILL eGFR by MDRD 119 >59 mL/min/1.7 3 [facility] INSURANCE BILL BUN/Creatinine Ratio 20 9 - 20 [facility] INSURANCE BILL Sodium 144 134 - 144 mmol/L [facility] INSURANCE BILL Potassium 4.3 3.5 - 5.2 mmol/L [facility] INSURANCE BILL Chloride 106 97 - 108 mmol/L [facility] INSURANCE BILL CO2 19 18 - 29 mmol/L [facility] INSURANCE BILL Calcium 8.8 8.7 - 10.2 mg/dL [facility] INSURANCE BILL Protein Total 5.8(L) 6.0 - 8.5 g/dL [facility] INSURANCE BILL Albumin 3.8 3.5 - 5.5 g/dL [facility] INSURANCE BILL Globulin Total 2.0 1.5 - 4.5 g/dL [facility] INSURANCE BILL Albumin/Globulin Ratio 1.9 1.1 - 2.5 [facility] INSURANCE BILL Bilirubin Total 0.5 0.0 - 1.2 mg/dL [facility] INSURANCE BILL Alkaline Phosphatase 39 39 - 117 IU/L [facility] INSURANCE BILL AST 21 0 - 40 IU/L [facility] INSURANCE BILL ALT 26 0 - 44 IU/L [facility] INSURANCE BILL Blood specimen (specimen) BLOOD SPECIMEN / Unknown 12/14/2015 2:44 AM CDT 12/14/2015 5:47 PM CDT Narrative Resulting Agency Comment [facility] [address] [facility] [id number] Isidro Heredia MD LAB - CHEMISTRY ORD ERABLES [facility] INSURANCE BILL [address] [place] [address] * (ABNORMAL) CBC W AUTO DIFFERENTIAL (12/14/2015 2:44 AM CDT) WBC 8.5 3.4 - 10.8 x10E3/uL [facility] INSURANCE BILL RBC 3.90(L) 4.14 - 5.80 x10E6/uL [facility] INSURANCE BILL Hemoglobin 12.4(L) 12.6 - 17.7 g/dL [facility] INSURANCE BILL Hematocrit 37.4(L) 37.5 - 51.0 % [facility] INSURANCE BILL MCV 96 79 - 97 fL [facility] INSURANCE BILL MCH 31.8 26.6 - 33.0 pg [facility] INSURANCE BILL MCHC 33.2 31.5 - 35.7 g/dL [facility] INSURANCE BILL RDW 14.4 12.3 - 15.4 % [facility] INSURANCE BILL Platelet Count 139(L) 150 - 379 x10E3/uL [facility] INSURANCE BILL Granulocytes % 72 % [facility] INSURANCE BILL Lymphocytes % 17 % [facility]ANCE B[facility] Monocytes % 9 % [facility] INSURANCE BILL Eosinophils % 2 % [facility] INSURANCE BILL Basophils % 0 % [facility] INSURANCE BILL Immature Cells NOT NEEDED [facility] INSURANCE BILL Comment:Ancillary determined the test is not needed Granulocytes Absolute 6.1 1.4 - 7.0 x10E3/uL [facility] INSURANCE BILL Lymphocytes Absolute 1.4 0.7 - 3.1 x10E3/uL [facility] INSURANCE BILL [...] determined the test is not needed Blood specimen (specimen) BLOOD SPECIMEN / Unknown 12/14/2015 2:44 AM CDT 12/14/2015 5:47 PM CDT Narrative Resulting Agency Comment [facility] [address] [facility] [id number] Isidro Heredia MD LAB - HEMATOLOGY OR DERABLES [facility] INSURANCE BILL [address] [place] [address] documented in this encounter Visit Diagnoses Diagnosis Rheumatoid arthritis of multiple sites with negative rheumatoid factor (HCC)- Primary documented in this encounter Care Teams Deputy Attorney General Relationship Specialty Start Date End Date Tomas Hyman MD [address] [facility] [address] [place] [address] PCP - General Family Medicine 12/31/13 05/09/18 Isidro Heredia MD Rheumatology 02/09/11 documented as of this encounter
--- OUTSIDE RECORDS SUMMARY | 2024-05-03 04:10 | XMS_ITS | Encounter Summary ---
Author Organization [facility] Address [address] [facility] [place] [address] Care Team Providers Care Public Aid Eligibility Assistant Name Role Phone Isidro Heredia MD Unavailable [phone] Tomas Hyman MD Primary Care Provider [phone] Encounter Details Date Type Department Care Team (Latest Contact Info) Description 05/16/2016 11:01 AM CLINICAL HAEMATOLOGIST - 05/16/2016 11:59 PM CLINICAL HAEMATOLOGIST Hospital Encounter [facility] Pain [facility] [address] [place] [address] [place] [address] [place] [phone] Discharge Disposition: Home or Self Care Social [...] Sign Reading Time Taken Comments Blood Pressure 143/87 05/16/2016 11:34 AM CLINICAL HAEMATOLOGIST Pulse 98 05/16/2016 11:34 AM CLINICAL HAEMATOLOGIST Temperature - - Respiratory Rate 16 05/16/2016 11:34 AM CLINICAL HAEMATOLOGIST Oxygen Saturation 98% 05/16/2016 11:34 AM CLINICAL HAEMATOLOGIST Inhaled Oxygen Concentration - - Weight - - Height - - Body Mass Index - - documented in this encounter Discharge Instructions * Patient Instructions* Nena Pond RN - 05/16/2016 11:13 AM CLINICAL HAEMATOLOGIST [facility] Pain Discharge Instructions Selective Epidural [...] headache, or any other problems, please call [phone] or after hours callDr. Mirza at [phone] and tell them your physician's name. The exchange will alert the physician application support intern. If sedation is given: No sedation given. For Your Next Visit: No additional instructions. Other Instructions: May remove band-aid in 12 Hours. Return in one week for [place] #2 ICAL HAEMATOLOGIST documented in this encounter Medications at Time of Discharge Medication Sig Dispensed Refills Start Date End Date atorvastatin (LIPITOR) 40 MG tablet Take 1 (one) tablet by mouth at bedtime Anvkapyvmkb-Wvnzhypbs-T it C-Mn (GLUCOSAMINE CHONDR 1500 COMPLX PO) [...] daily 09/05/2018 metaxalone (SKELAXIN) 800 MG tablet 1 Tab 3 times daily 270 Tab 03/02/2016 07/14/2016 methotrexate 2.5 MG tablet TAKE 6 TABLETS [...] Pain Dx: 714.0 RA Earliest Fill Date: 04/05/16 120 Tab 04/05/2016 06/01/2016 predniSONE (DELTASONE) 10 MG tablet TAKE 1 TABLET TWICE A DAY 180 Tab 2 09/24/2015 06/19/2016 documented as of this encounter Progress Notes * Alejandro Mirza MD - 05/16/2016 11:35 AM CST History and physical completed on 05/15/16. Was reviewed today and no changes noted. ICAL HAEMATOLOGIST documented in this encounter Procedure Notes * Alejandro Mirza MD - 05/16/2016 11:38 AM CSTAssociated Order(s): PAIN MANAGEMENT PROCEDURE TIME Lumbar Epidural L5-S1 Patient Name: Chalino Deng Provider: Alejandro Mirza MD Date of : 1960 Date: 05/16/2016 PCP: Tomas Hyman MD Allergies: Allergies as of 05/16/2016 - Carl as Reviewed 05/16/2016 Allergen Reaction Noted ??? Plaquenil [hydroxychloroquine sulfate] 05/15/2011 ??? Tuberculin ppd 07/27/2008 Pt. presents today for an injection. Procedure: Epidural injection L5-S1 Diagnosis/Indication:Low back and/or leg pain M54.17 Other conservative therapies and/or treatments provided inadequate [...] Coumadin, Plavix or other blood thinners. Responsible cdl company flatbed driver is not needed due to the [...] the injection. 80 milligrams of Depomedrol, saline were injected into the epidural space. Complications: None Estimated Blood Loss: None The patient tolerated the procedure well and [...] Follow Up: 1 week Alejandro Mirza MD ICAL HAEMATOLOGIST documented in this encounter Plan of Treatment Upcoming Encounters Date Type Department Care Team (Late st Contact Info) Description 06/03/2024 1:00 PM CLINICAL HAEMATOLOGIST Appointment [facility] - Rheumatology [address] [place] [address] 06/03/2024 2:00 PM CLINICAL HAEMATOLOGIST Office Visit [facility] - Rheumatology [address] [place] [address] Gloria Smith MD [address] [place] [address] [phone] documented as of this encounter Procedures Procedure Name Priority Date/Time Associated Diagnosis Comments PAIN MANAGEMENT PROCEDURE TIME Routine 05/16/2016 11:33 AM CLINICAL HAEMATOLOGIST Radiculopathy of lumbosacral region Low back pain with sciatica, sciatica laterality unspecified, unspecified back pain laterality, unspecified chronicity documented in this encounter Results * PAIN MANAGEMENT PROCEDURE TIME (05/16/2016 11:33 AM CLINICAL HAEMATOLOGIST) Anatomical Region Laterality Modality X-Ray Angiograph y Narrative 05/16/2016 11:39 AM CLINICAL HAEMATOLOGIST Alejandro Mirza MD ? 05/16/2016 11:39 AM Lumbar Epidural L5-S1 Patient Name: Chalino Deng ?Provider: Alejandro Mirza MD Date of : 1960 ?Date: 05/16/2016 PCP: Tomas Hyman MD Allergies: Allergies as of 05/16/2016 - Carl as Reviewed 05/16/2016 Allergen Reaction Noted ? ? Plaquenil [hydroxychloroquine sulfate] ??05/15/2011 ? ? Tuberculin ppd ??07/27/2008 Pt. presents today for an injection. ? Procedure: Epidural injection L5-S1 ?? Diagnosis/Indication:Low back and/or leg pain M54.17 Other conservative therapies and/or treatments provided inadequate [...] Coumadin, Plavix or other blood thinners. ??Responsible cdl company flatbed driver is not needed due to the [...] the injection. ??80 milligrams of Depomedrol, ??saline were injected into the epidural space. Complications: ??None Estimated Blood Loss: None ?? The patient tolerated the procedure well and [...] lumbosacral neuritis or radiculitis, unspecified Low back pain with sciatica, sciatica laterality unspecified, unspecified back pain laterality, unspecified chronicity documented in this encounter Administered Medications Inactive Administered Medications - up to 3 most recent administrations Medication Order MAR Action Action Date Dose Rate Site methylPREDNISolone acetate (DEPO-Medrol) injection 80 mg 80 mg, Intramuscular, INTRA-PROCEDURE ONCE, 1 dose, On Sun05/16/16 at 1115 $ Admin. by Other Provider 05/16/2016 11:30 AM CLINICAL HAEMATOLOGIST 80 mg Back documented in this encounter Care Teams Public Aid Eligibility Assistant Relationship Specialty Start Date End Date Tomas Hyman MD [address] [facility] [address] [place] [address] PCP - General Family Medicine 12/31/13 05/09/18 Isidro Heredia MD Rheumatology 02/09/11 documented as of this encounter
--- OUTSIDE RECORDS SUMMARY | 2024-05-03 04:10 | XMS_ITS | Encounter Summary ---
Author Organization [facility] Address [address] [place] [address] Care Team Providers Care Mold Builder Name Role Phone Isidro Heredia MD Unavailable [phone] Tomas Hyman MD Primary Care Provider [phone] Reason for Visit * Reason Comments Narcotic Refill percocet MEDICATION REFILL skelaxin * Evaluate & Treat (Routine) - Closed Specialty Diagnoses / Procedures Referred By Contac t Referred To Contact Diagnoses Rheumatoid arthritis, unspecified (HCC) Procedures [facility] OFFICE VISIT DURING HOURS Tomas Hyman MD [address] [place] [address] Isidro Heredia MD [address] [place] [address] Referral ID Status Reason Start Date Expiration Date Visits Re quested Visits Authorized [id number] Closed 06/15/2016 06/15/2017 6 6 Encounter Details Date Type Department Care Team (Late st Contact Info) Description 06/29/2016 2:00 PM EXPORT SPECIALIST Office Visit [facility] - Rheumatology [address] [place] [address] Isidro Heredia MD [address] [place] [address] Abnormal LFTs (Primary Dx); Chronic right-sided low back pain with right-sided sciatica; Rheumatoid arthritis of 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 male is here for Chief Complaint Patient presents with ??? Narcotic Refill percocet ??? MEDICATION REFILL skelaxin HPI: On mtxb and actemra for ra And percocet neurontin skelaxin for ra Just had rectal poyp removed Pain Level 6/10 hands Knees feet Am stiffness 90 min Global 4/10 Fatigue yes Medication Side Effects no No recent epid nerve injection For lumbar radiculopathy Current Outpatient Prescriptions on File Prior to Visit Medication Sig Dispense Refill ??? predniSONE (DELTASONE) 10 MG tablet TAKE 1 TABLET TWICE A DAY 180 Tab 1 ??? NEXIUM 40 MG capsule TAKE 1 CAPSULE DAILY BEFORE BREAKFAST 90 Cap 1 ??? carvedilol (COREG) 12.5 MG tablet TAKE 1 TABLET TWICE A DAY WITH MORNING AND EVENING MEALS 120 Tab 0 ??? metaxalone (SKELAXIN) 800 MG tablet 1 Tab 3 times daily 270 Tab 0 ??? methotrexate 2.5 MG tablet TAKE 6 TABLETS EVERY 7 DAYS 72 Tab 3 ??? atorvastatin (LIPITOR) 40 MG tablet Take 40 mg by mouth once daily ??? gabapentin (NEURONTIN) 300 MG capsule Take 1 Cap by mouth 2 times daily 180 Cap 2 ??? KRILL OIL PO Take [...] FOR 30 MINUTES 3 Tab 5 ??? naproxen (NAPROSYN) 500 MG tablet TAKE 1 TABLET TWICE A DAY 180 Tab 2 ??? Magnesium Citrate 100 MG TABS Take 1 Tab by mouth once daily ??? Multiple Vitamins-Minerals (OCUVITE PO) Take 1 Tab by mouth once daily ??? Multiple Vitamin (MULTI-VITAMIN PO) Take 1 Tab by mouth once daily ??? Qjmcjkeoskz-Omgymfeem-Owy C-Mn (GLUCOSAMINE CHONDR 1500 COMPLX PO) Take [...] lungs Objective: General Appearance Physical Exam: BP 125/84 Pulse 80 Head: perrla, eyes no irritation, vision and [...] 6/SJ, 0/muscle tenderness or weakness LUE: 9/TJ, 5/SJ, 0/muscle tenderness or weakness RLE: 0/TJ, 0/SJ, 0/muscle tenderness or weakness LLE: 0/TJ, 0/SJ, 0/muscle tenderness or weakness Assessment: Encounter Diagnoses Name Primary? Abnormal LFTs Yes ??? Chronic right-sided low back pain with right-sided sciatica ??? Rheumatoid arthritis of multiple sites with negative rheumatoid factor ??? Chronic pain syndrome ??? Rheumatoid arthritis of multiple 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 factor poorly controlled ra chronic pain and lbp same meds Plan: Plan Orders Placed This Encounter ??? oxyCODONE-acetaminophen (PERCOCET) 5-325 MG tablet Sig: Take 1 Tab by mouth every 6 hours as needed for Pain Dx: 714.0 RA Dispense: 120 Tab Refill: 0 Follow up in office in 4 weeks RT SPECIALIST documented in this encounter Plan of Treatment Upcoming Encounters Date Type Department Care Team (Late st Contact Info) Description 06/03/2024 1:00 PM EXPORT SPECIALIST Appointment [facility] - Rheumatology [address] [place] [address] 06/03/2024 2:00 PM EXPORT SPECIALIST Office Visit [facility] - Rheumatology [address] [place] [address] Gloria Smith MD [address] [place] [phone] documented as of this encounter Visit Diagnoses Diagnosis Abnormal LFTs- Primary Other abnormal blood chemistry Chronic right-sided low back pain with right-sided sciatica Rheumatoid arthritis of multiple sites with negative rheumatoid factor (HCC) Chronic pain syndrome Rheumatoid arthritis of multiple 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 factor (HCC) Rheumatoid arthritis documented in this encounter Care Teams Mold Builder Relationship Specialty Start Date End Date Tomas Hyman MD [address] [facility] [address] [place] [address] PCP - General Family Medicine 12/31/13 05/09/18 Isidro Heredia MD Rheumatology 02/09/11 documented as of this encounter
--- OUTSIDE RECORDS SUMMARY | 2024-05-03 04:10 | XMS_ITS | Encounter Summary ---
Author Organization [facility] Address [address] [place] [address] Care Team Providers Care Ambulance Attendant Name Role Phone Isidro Heredia MD Unavailable [phone] Tomas Hyman MD Primary Care Provider [phone] Reason for Visit * Reason Comments Refill Request Encounter Details Date Type Department Care Team (Late Contact Info) Description 01/01/2016 Refill [facility] - Rheumatology [address] [place] [address] Ashwini Silverio, MRI SPECIALIST-[address] [phone] Refill Request Social History Tobacco Use Types [...] (Late Contact Info) Description 06/03/2024 1:00 PM SENIOR INFORMATION SYSTEMS ARCHITECT Appointment [facility] - Rheumatology [address] [place] [address] 06/03/2024 2:00 PM SENIOR INFORMATION SYSTEMS ARCHITECT Office Visit [facility] Rheumatology [address] [place] [address] Gloria Smith MD [address] [place] [phone] documented as of this encounter Visit Diagnoses Not on filedocumented in this encounter Care Teams Ambulance Attendant Relationship Specialty Start Date End Date Tomas Hyman MD [address] [place] [address] PCP - General Family Medicine 12/31/13 05/09/18 Isidro Heredia MD Rheumatology 02/09/11 documented as of this encounter
--- OUTSIDE RECORDS SUMMARY | 2024-05-03 04:10 | XMS_ITS | Encounter Summary ---
Author Organization [facility] Address [address] [facility] [place] [address] Care Team Providers Care Playground Equipment Erector Name Role Phone Isidro Heredia MD Unavailable [phone] Tomas Hyman MD Primary Care Provider [phone] Reason for Visit * Reason Comments Refill Request Encounter Details Date Type Department Care Team (Late Contact Info) Description 06/08/2016 Refill [facility] - Rheumatology [address] [place] [address] Isidro Heredia MD [address] [place] [address] Refill Request Social History Tobacco Use [...] (Late Contact Info) Description 06/03/2024 1:00 PM BAG MAKING MACHINE TENDER Appointment [facility] - Rheumatology [address] [place] [address] 06/03/2024 2:00 PM BAG MAKING MACHINE TENDER Office Visit [facility] Rheumatology [address] [place] [address] Gloria Smith MD [address] [place], [place] [address], [place] [address] documented as of this encounter Visit Diagnoses Not on filedocumented in this encounter Care Teams Playground Equipment Erector Relationship Specialty Start Date End Date Tomas Hyman MD [address] [place] [address] PCP - General Family Medicine 12/31/13 05/09/18 Isidro Heredia MD Rheumatology 02/09/11 documented as of this encounter
--- OUTSIDE RECORDS SUMMARY | 2024-05-03 04:10 | XMS_ITS | Encounter Summary ---
Author Organization [facility] Address [address] [facility] [place] [address] Care Team Providers Care Residential Supervisor Name Role Phone Isidro Heredia MD Unavailable Tomas Hyman MD Primary Care Provider [phone] Encounter Details Date Type Department Care Team (Late Contact Info) Description 06/29/2016 Orders Only [facility] - Rheumatology [address] [place] [address] Isidro Heredia MD [address] [place] [address] Social History Tobacco Use Types Packs/Day [...] Contact Info) Description 06/03/2024 1:00 PM INSIDE SALES ASSISTANT Appointment [facility] - Rheumatology [address] [place] [address] 06/03/2024 2:00 PM INSIDE SALES ASSISTANT Office Visit [facility] - Rheumatology [address] [place] [address] Gloria Smith MD [address] [place] [phone] documented as of this encounter Visit Diagnoses Not on filedocumented in this encounter Care Teams Residential Supervisor Relationship Specialty Start Date End Date Tomas Hyman MD [address] [facility] [address] [place] [address] PCP - General Family Medicine 12/31/13 05/09/18 Isidro Heredia MD Rheumatology 02/09/11 documented as of this encounter
--- OUTSIDE RECORDS SUMMARY | 2024-05-03 04:10 | XMS_ITS | Encounter Summary ---
Author Organization [facility] Address [address] [facility] [place] [address] Care Team Providers Care Peoples[employer] Name Role Phone Isidro Heredia MD Unavailable [phone] Tomas Hyman MD Primary Care Provider [phone] Encounter Details Date Type Department Care Team (Late st Contact Info) Description 06/29/2016 Orders Only [facility] Medical [facility] - Rheumatology [address] [place] [address] [phone] Isidro Heredia MD [address] [place] [address] Rheumatoid arthritis of multiple sites with [...] Progress Notes * Yamileth Rodríguez MA - 07/03/2016 1:23 PM CST Message sent via my chart regarding lab results ECT DEVELOPMENT ENGINEER * Isidro Heredia MD - 07/02/2016 12:51 PM CST mtx [place] ECT DEVELOPMENT ENGINEER documented in this encounter Plan of Treatment Upcoming Encounters Date Type Department Care Team (Late st Contact Info) Description 06/03/2024 1:00 PM PROJECT DEVELOPMENT ENGINEER Appointment [facility] - Rheumatology [address] [place] [address] [phone] 06/03/2024 2:00 PM PROJECT DEVELOPMENT ENGINEER Office Visit [facility] - Rheumatology [address] [place] [address] Gloria Smith MD [address] [place] [address] [phone] documented as of this encounter Procedures Procedure Name Priority Date/Time Associated Diagnosis Comments ERYTHROCYTE SEDIMENTATION RATE Routine 06/29/2016 1:30 AM PROJECT DEVELOPMENT ENGINEER Rheumatoid arthritis of multiple sites with negative rheumatoid factor (HCC) CBC W AUTO DIFFERENTIAL Routine 06/29/2016 1:30 AM PROJECT DEVELOPMENT ENGINEER Rheumatoid arthritis of multiple sites with negative rheumatoid factor (HCC) COMPREHENSIVE METABOLIC PANEL Routine 06/29/2016 1:30 AM PROJECT DEVELOPMENT ENGINEER Rheumatoid arthritis of multiple sites with negative rheumatoid factor (HCC) documented in this encounter Results * SED RATE WESTERGREN (06/29/2016 1:30 AM PROJECT DEVELOPMENT ENGINEER) Erythrocyte Sedimentation Rate Westergren 10 0 - 30 mm/hr [facility] INSURANCE BILL Blood BLOOD SPECIMEN / Unknown 06/29/2016 1:30 AM PROJECT DEVELOPMENT ENGINEER 06/29/2016 Narrative Resulting Agency Comment [facility] [address] ??[facility] [phone] Isidro Heredia MD LAB - HEMATOLOGY OR DERABLES [facility] INSURANCE BILL [address] [place] [address] * (ABNORMAL) COMPREHENSIVE METABOLIC PANEL (06/29/2016 1:30 AM PROJECT DEVELOPMENT ENGINEER) Glucose 101(H) 65 - 99 mg/dL [facility] INSURANCE BILL [...] - 106 mmol/L [facility] INSURANCE BILL CO2 20 18 - 29 mmol/L [facility] INSURANCE BILL Calcium 8.8 8.7 - 10.2 mg/dL [facility] INSURANCE BILL Protein Total 6.5 6.0 - 8.5 g/dL [facility] INSURANCE BILL Albumin 4.2 3.5 - 5.5 g/dL [facility] INSURANCE BILL Globulin Total 2.3 1.5 - 4.5 g/dL [facility] INSURANCE BILL Albumin/Globulin Ratio 1.8 1.1 - 2.5 [facility] INSURANCE BILL Comment: ? Effective July 10, 2016 the reference interval ? for A/G Ratio will be changing to: ?Age ?Male ?Female ? 0 - ??7 days ? 1.1 - 2.3 ? 1.1 - 2.3 ? 8 - 30 days ? 1.2 - 2.8 ? 1.2 - 2.8 ? 1 - ??6 months ? 1.3 - 3.6 ? 1.3 - 3.6 ?7 months - ??5 years ?1.5 - 2.6 ? 1.5 - 2.6 ?> 5 years ?1.2 - 2.2 ? 1.2 - 2.2 Bilirubin Total 0.6 0.0 - 1.2 mg/dL [facility] INSURANCE BILL Alkaline Phosphatase 46 39 - 117 IU/L [facility] INSURANCE BILL AST 18 0 - 40 IU/L [facility] INSURANCE BILL ALT 21 0 - 44 IU/L [facility] INSURANCE BILL Blood BLOOD SPECIMEN / Unknown 06/29/2016 1:30 AM PROJECT DEVELOPMENT ENGINEER 06/29/2016 Narrative Resulting Agency Comment [facility] [address] [facility] ??[facility] [phone] Isidro Heredia MD LAB - CHEMISTRY ORD ERABLES [facility] INSURANCE BILL [address] [place] [address] * CBC W AUTO DIFFERENTIAL (06/29/2016 1:30 AM PROJECT DEVELOPMENT ENGINEER) Pathologist [facility] WBC 8.7 3.4 - 10.8 x10E3/uL [facility] INSURANCE BILL RBC 4.42 4.14 - 5.80 x10E6/uL [facility] INSURANCE BILL Hemoglobin 13.6 12.6 - 17.7 g/dL [facility] INSURANCE BILL Hematocrit 40.4 37.5 - 51.0 % [facility] INSURANCE BILL MCV 91 79 - 97 fL [facility] INSURANCE BILL MCH 30.8 26.6 - 33.0 pg [facility] INSURANCE BILL MCHC 33.7 31.5 - 35.7 g/dL [facility] INSURANCE BILL RDW 14.5 12.3 - 15.4 % [facility] INSURANCE BILL Platelet Count 166 150 - 379 x10E3/uL [facility] INSURANCE BILL Granulocytes % 70 % [facility] INSURANCE BILL Lymphocytes % 20 % [facility] INSURANCE BILL Monocytes % 8 % [facility] INSURANCE BILL Eosinophils % 2 [...] not needed Blood BLOOD SPECIMEN / Unknown 06/29/2016 1:30 AM PROJECT DEVELOPMENT ENGINEER 06/29/2016 Narrative Resulting Agency Comment [facility] [address] [facility] ??[facility] [phone] Isidro Heredia MD LAB - HEMATOLOGY OR DERABLES [facility] INSURANCE BILL [address] [place] [address] documented in this encounter Visit Diagnoses Diagnosis Rheumatoid arthritis of multiple sites with negative rheumatoid factor (HCC)- Primary documented in this encounter Care Teams [employer] Relationship Specialty Start Date End Date Tomas Hyman MD [address] [place] [address] PCP - General Family Medicine 12/31/13 05/09/18 Isidro Heredia MD Rheumatology 02/09/11 documented as of this encounter
--- OUTSIDE RECORDS SUMMARY | 2024-05-03 04:10 | XMS_ITS | Encounter Summary ---
Author Organization [facility] Address [address] [facility] [place] [address] Care Team Providers Care English Division Chair Name Role Phone Isidro Heredia MD Unavailable [phone] Tomas Hyman MD Primary Care Provider [phone] Reason for Visit * Treatment (Routine) - Closed Specialty Diagnoses / Procedures Referred By Lawrence shah Referred To Contact Infusion Therapy Nurse Diagnoses Rheumatoid arthritis(714.0) (HCC) Rheumatoid arthritis without rheumatoid factor, multiple sites (HCC) Procedures RI INFLIXIMAB INJECTION RI INJECTION TOCILIZUMAB 1 MG Isidro Heredia MD [address] [place] [address] [address] Referral ID Status Reason Start Date Expiration Date Visits Re quested Visits Authorized [id number] Closed 01/07/2015 01/08/2016 1 12 Encounter Details Date Type Department Care Team (Late st Contact Info) Description 10/13/2015 3:20 PM CDT - 10/13/2015 11:59 PM CDT Hospital Encounter [facility] Medical [facility] - Rheumatology [address] [place] [address] Isidro Heredia MD [address] [place] [address] Discharge Disposition: Home or Self [...] Sign Reading Time Taken Comments Blood Pressure 129/85 10/13/2015 3:42 PM CDT Pulse 85 10/13/2015 3:42 PM CDT Temperature 37 ??C (98.6 ??F) 10/13/2015 3:42 PM CDT Respiratory Rate 16 10/13/2015 3:42 PM CDT Oxygen Saturation - - Inhaled Oxygen Concentration - - Weight 110.2 kg (243 lb) 10/13/2015 3:42 PM CDT Height 177.8 cm (5' 10 ) 10/13/2015 3:42 PM CDT Body Mass Index 34.87 10/13/2015 3:42 PM CDT documented in this encounter Discharge Instructions * Discharge Instructions* Jody Sahu RN - 10/13/2015 4:06 PM CDT [facility] instructions You have [...] through Sunday 9-5 call the office at [phone] After hours or on the weekend call the exchange at [phone] If you have had lab work done [...] [facility] as your provider. Jody Sahu RN documented in this encounter Medications at Time of Discharge Medication Sig Dispensed Refills Start Date End Date Wjlopmccjbn-Yjmngzxvk-L it C-Mn (GLUCOSAMINE CHONDR 1500 COMPLX PO) [...] by mouth 2 times daily 180 Cap 1 12/03/2014 11/15/2015 KRILL OIL PO Take 500 mg by mouth once daily 09/05/2018 metaxalone (SKELAXIN) 800 MG tablet TAKE 1 TABLET THREE TIMES A DAY 270 Tab 1 09/14/2014 11/12/2015 methotrexate 2.5 MG tablet TAKE 6 TABLETS EVERY 7 DAYS 72 Tab 1 07/01/2015 12/14/2015 Multiple Vitamins-Minerals (OCUVITE PO) Take 1 Tab [...] Pain Dx: 714.0 RA 120 Tab 0 10/13/2015 11/16/2015 pravastatin (PRAVACHOL) 20 MG tablet Take 1 Tab by mouth once daily 30 Tab 11 06/14/2015 11/16/2015 predniSONE (DELTASONE) 10 MG tablet TAKE 1 TABLET TWICE A DAY 180 Tab 2 09/24/2015 06/19/2016 documented as of this encounter Progress Notes * Jody Sahu RN - 10/13/2015 4:34 PM CDT JOSE Deng [id number] 10/13/2015 Diagnosis: Rheumatoid arthritis without rheumatoid factor, multiple sites [M06.09]. Pt denies symptoms of infection or antibiotic use, no open wounds, or recent surgery, or plans for surgery in the next couple of weeks. Pt is aware that we use the 0-10 pain scale to assess discomfort. 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 front end mechanic pt signs consent for treatment for this infusion. BP 129/85 mmHg Pulse 85 Temp(Src) 98.6 ??F Resp 16 Wt 110.224 kg (243 lb) BMI 34.87 kg/m2 @ [...] st Contact Info) Description 06/03/2024 1:00 PM ADVERTISING OPERATIONS COORDINATOR Appointment [facility] - Rheumatology [address] [place] [address] 06/03/2024 2:00 PM ADVERTISING OPERATIONS COORDINATOR Office Visit [facility] - Rheumatology [address] [place] [address] Gloria Smith MD [address] [place] [phone] documented as of this encounter Visit Diagnoses Diagnosis Rheumatoid arthritis of multiple sites with negative rheumatoid factor (HCC) documented in this encounter Administered Medications Inactive Administered Medications - up to 3 most recent administrations Medication Order MAR Action Action Date Dose Rate Site Tocilizumab 800 mg in 0.9% NaCl IVPB 800 mg, at 140 mL/hr, Intravenous, ONCE, 1 dose, On Sun10/13/15 at 1600, 2 vials Actemra 400mg 0 waste. Stable 24hrs RT $ Given 10/13/2015 4:00 PM CDT 800 mg 140 mL/hr documented in this encounter Care Teams English Division Chair Relationship Specialty Start Date End Date Tomas Hyman MD [address] [facility] [address] [place] [address] PCP - General Family Medicine 12/31/13 05/09/18 Isidro Heredia MD Rheumatology 02/09/11 documented as of this encounter
--- OUTSIDE RECORDS SUMMARY | 2024-05-03 04:10 | XMS_ITS | Encounter Summary ---
Author Organization [facility] Address [address] [facility] [place] [address] Care Team Providers Care Wedding Day Coordinator Name Role Phone Isidro Heredia MD Unavailable [phone] Tomas Hyman MD Primary Care Provider [phone] Reason for Visit * Treatment (Routine) - Closed Specialty Diagnoses / Procedures Referred By Lawrence shah Referred To Contact [place] [phone] [address] [facility] Pain Care [address] [place] [address] Referral ID Status Reason Start Date Expiration Date Visits Re quested Visits Authorized [id number] Closed 05/16/2016 11/12/2016 1 3 Encounter Details Date Type Department Care Team (Latest Contact Info) Description 05/16/2016 10:30 AM FIELD SALES EXECUTIVE - 05/16/2016 11:00 AM [facility] Hospital Encounter [facility] Pain Care [id number] [place] [address] [place] [id number] [address] Discharge Disposition: Home or Self [...] 1 (one) tablet by mouth at bedtime Zqaqfisyrjf-Ydcqgeyoq-D it C-Mn (GLUCOSAMINE CHONDR 1500 COMPLX PO) [...] 09/24/2015 06/19/2016 documented as of this encounter Plan of Treatment Upcoming Encounters Date Type Department Care Team (Late st Contact Info) Description 06/03/2024 1:00 PM FIELD SALES EXECUTIVE Appointment [facility] - Rheumatology [address] [place] [address] [phone] 06/03/2024 2:00 PM FIELD SALES EXECUTIVE Office Visit [facility] - Rheumatology [address] [place] [address] [phone] Gloria Smith MD [address] [place] [phone] documented as of this encounter Visit Diagnoses Not on filedocumented in this encounter Care Teams Wedding Day Coordinator Relationship Specialty Start Date End Date Tomas Hyman MD [address] [facility] [address] [place] [address] PCP - General Family Medicine 12/31/13 05/09/18 Isidro Heredia MD Rheumatology 02/09/11 documented as of this encounter
--- OUTSIDE RECORDS SUMMARY | 2024-05-03 04:10 | XMS_ITS | Encounter Summary ---
Author Organization [facility] Address [address] [facility] [address] Care Team Providers Care Portable Canteen Operator Name Role Phone Isidro Heredia MD Unavailable [phone] Tomas Hyman MD Primary Care Provider [phone] Reason for Visit * Reason Comments Refill Request Encounter Details Date Type Department Care Team (Late Contact Info) Description 06/19/2016 Refill [facility] - Rheumatology [address] [place] [address] Isidro Heredia MD [address] [place] [address] Refill Request Social History Tobacco Use [...] (Late Contact Info) Description 06/03/2024 1:00 PM GROUNDSKEEPING YARDMAN Appointment [facility] - Rheumatology [address] [place] [address] 06/03/2024 2:00 PM GROUNDSKEEPING YARDMAN Office Visit [facility] Rheumatology [address] [place] [address] Gloria Smith MD [address] [place], [place] [address], [place] [address] documented as of this encounter Visit Diagnoses Not on filedocumented in this encounter Care Teams Portable Canteen Operator Relationship Specialty Start Date End Date Tomas Hyman MD [address] [place] [address] PCP - General Family Medicine 12/31/13 05/09/18 Isidro Heredia MD Rheumatology 02/09/11 documented as of this encounter
--- OUTSIDE RECORDS SUMMARY | 2024-05-03 04:10 | XMS_ITS | Encounter Summary ---
Author Organization [facility] Address [address] [facility] [place] [address] Care Team Providers Care Flower Shop Manager Name Role Phone Isidro Heredia MD Unavailable [phone] Tomas Hyman MD Primary Care Provider [phone] Reason for Visit * Treatment (Routine) - Closed Specialty Diagnoses / Procedures Referred By Lawrence shah Referred To Contact Infusion Therapy Nurse Diagnoses Rheumatoid arthritis(714.0) (HCC) Rheumatoid arthritis without rheumatoid factor, multiple sites (HCC) Procedures [place] INFLIXIMAB INJECTION [place] INJECTION TOCILIZUMAB 1 MG Isidro Heredia MD [address] [place] [address] [address] Referral ID Status Reason Start Date Expiration Date Visits Re quested Visits Authorized [id number] Closed 01/07/2015 01/08/2016 1 12 Encounter Details Date Type Department Care Team (Late st Contact Info) Description 09/13/2015 3:13 PM CDT - 09/13/2015 11:59 PM CDT Hospital Encounter [facility] Medical [facility] - Rheumatology [address] [place] [address] Isidro Heredia MD [address] [place] [address] Discharge Disposition: Home or Self [...] Sign Reading Time Taken Comments Blood Pressure 124/91 09/13/2015 3:38 PM CDT Pulse 70 09/13/2015 3:38 PM CDT Temperature 36.8 ??C (98.3 ??F) 09/13/2015 3:38 PM CD T Respiratory Rate 16 09/13/2015 3:38 PM CDT Oxygen Saturation - - Inhaled Oxygen Concentration - - Weight 111.1 kg (245 lb) 09/13/2015 3:38 PM CDT Height - - Body Mass Index 35.15 07/19/2015 4:42 PM CDT documented in this encounter Discharge Instructions * Discharge Instructions* Jody Sahu RN - 09/13/2015 3:44 PM CDT [place] Rhe[facility]ology Post Infusion instructions You have [...] through Sunday 9-5 call the office at [phone] After hours or on the weekend call the exchange at [phone] If you have had lab work done [...] Sig Dispensed Refills Start Date End Date Xycdddtoxsi-Xkqlsmsrj-D it C-Mn (GLUCOSAMINE CHONDR 1500 COMPLX PO) [...] Pain Dx: 714.0 RA 120 Tab 0 09/13/2015 10/13/2015 pravastatin (PRAVACHOL) 20 MG tablet Take 1 Tab by mouth once daily 30 Tab 11 06/14/2015 11/16/2015 predniSONE (DELTASONE) 10 MG tablet TAKE 1 TABLET BY MOUTH 2 TIMES A DAY 180 Tab 3 11/05/2014 09/24/2015 documented as of this encounter Progress Notes * Jody Sahu RN - 09/13/2015 4:01 PM CDT JOSE Deng [id number] 09/13/2015 Diagnosis: Rheumatoid arthritis without rheumatoid factor, multiple sites [M06.09]. Pt denies symptoms of infection or antibiotic use, no open wounds, or recent surgery, or plans for surgery in the next couple of weeks. Pt is aware that we use the 0-10 pain scale to assess discomfort. 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 test desk operator pt signs consent for treatment for this infusion. BP 124/91 mmHg Pulse 70 Temp(Src) 98.3 ??F Resp 16 Wt 111.131 kg (245 lb) @ MEDICATIONS FOR CURRENT ENCOUNTER: ?? SCHEDULED MEDICATIONS: ?? tocilizumab (ACTEMRA) 800 mg in 0.9% NaCl IVPB, Intravenous, Once ?? CONTINUOUS MEDICATIONS: PRN MEDICATIONS: ?? Number of 24 gauge 3/4 inch placed in Left hand ?? 1 attempt(s). Patient monitored throughout procedure. Tolerated well? Yes Next treatment? 4 weeks Jody Sahu RN documented in this encounter Plan of Treatment Upcoming Encounters Date Type Department Care Team (Late st Contact Info) Description 06/03/2024 1:00 PM PHOTOGRAPHY INTERN Appointment 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 Stable 24hrs RT $ Given 09/13/2015 3:50 PM CDT 800 mg 100 mL/hr documented in this encounter Care Teams Flower Shop Manager Relationship Specialty Start Date End Date Tomas Hyman MD [address] [facility] [address] [place] [address] PCP - General Family Medicine 12/31/13 05/09/18 Isidro Heredia MD Rheumatology 02/09/11 documented as of this encounter
--- OUTSIDE RECORDS SUMMARY | 2024-05-03 04:10 | XMS_ITS | Encounter Summary ---
Author Organization [facility] Address [address] [facility] [place] [address] Care Team Providers Care Research Test Engine Operator Name Role Phone Isidro Heredia MD Unavailable [phone] Tomas Hyman MD Primary Care Provider [phone] Reason for Visit * Treatment (Routine) - Closed Specialty Diagnoses / Procedures Referred By Lawrence shah Referred To Contact Infusion Therapy Nurse Diagnoses Rheumatoid arthritis without rheumatoid factor, multiple sites (HCC) Procedures CT INJECTION TOCILIZUMAB 1 MG Isidro Heredia MD [address] [place] [address] [address] Referral ID Status Reason Start Date Expiration Date Visits Re quested Visits Authorized [id number] Closed 12/16/2015 06/07/2016 1 6 Encounter Details Date Type Department Care Team (Late st Contact Info) Description 06/01/2016 1:13 PM CASKET TRIMMER - 06/01/2016 11:59 PM CASKET TRIMMER Hospital Encounter [facility] Medical [facility] - Rheumatology [address] [place] [address] Isidro Heredia MD [address] [place] [address] Discharge Disposition: Home or Self [...] Sign Reading Time Taken Comments Blood Pressure 120/76 06/01/2016 1:42 PM CASKET TRIMMER Pulse 85 06/01/2016 1:42 PM CASKET TRIMMER Temperature 36.9 ??C (98.4 ??F) 06/01/2016 1:42 PM CS T Respiratory Rate 16 06/01/2016 1:42 PM CASKET TRIMMER Oxygen Saturation - - Inhaled Oxygen Concentration - - Weight 119.3 kg (263 lb) 06/01/2016 1:42 PM CASKET TRIMMER Height - - Body Mass Index 37.74 01/11/2016 3:12 PM CDT documented in this encounter Discharge Instructions * Discharge Instructions* Jody Sahu RN - 06/01/2016 1:46 PM CASKET TRIMMER ID Rheumatology Post Infusion instructions You have [...] Sunday through 01-02 call the office at [phone] After hours or on the weekend call the exchange at [phone] If you have had lab work done [...] you and are glad you have chosen [facility] as your provider. Jody Sahu RN ET TRIMMER documented in this encounter Medications at Time of Discharge Medication Sig Dispensed Refills Start Date End Date atorvastatin (LIPITOR) 40 MG tablet Take 1 (one) tablet by mouth at bedtime Tspevbvthmn-Aultschfy-G it C-Mn (GLUCOSAMINE CHONDR 1500 COMPLX PO) [...] WITH MORNING AND EVENING MEALS 120 Tab 05/23/2016 07/20/2016 gabapentin (NEURONTIN) 300 MG capsule Take 1 [...] for Pain Dx: 714.0 RA 120 Tab 06/01/2016 06/29/2016 predniSONE (DELTASONE) 10 MG tablet TAKE 1 TABLET TWICE A DAY 180 Tab 2 09/24/2015 06/19/2016 documented as of this encounter Progress Notes * Jody Sahu RN - 06/01/2016 1:59 PM CST JOSE Deng [id number] 06/01/2016 Diagnosis: Rheumatoid arthritis without rheumatoid factor, multiple sites [M06.09]. Pt denies symptoms of infection or antibiotic use, no open wounds, or recent surgery, or plans for surgery in the next couple of weeks. Pt is aware that we use the 0-10 pain scale to assess discomfort. 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 front facer pt signs consent for treatment for this infusion. BP 120/76 Pulse 85 Temp 98.4 ??F Resp 16 Wt 119.3 kg (263 lb) BMI 37.74 kg/m2 @ MEDICATIONS FOR CURRENT ENCOUNTER: ?? SCHEDULED MEDICATIONS: ?? Tocilizumab 800 mg in 0.9% NaCl 100 mL IVPB, Intravenous, Once ?? CONTINUOUS MEDICATIONS: PRN MEDICATIONS: ?? Number of 24 gauge 3/4 inch placed in Left hand ?? 1 attempt(s). Patient monitored throughout procedure. Tolerated well? Yes Next treatment? 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 factor (HCC) documented in this encounter Administered Medications Inactive Administered Medications - up to 3 most recent administrations Medication Order MAR Action Action Date Dose Rate Site Tocilizumab 800 mg in 0.9% NaCl 100 mL IVPB 800 mg, Intravenous, ONCE, 1 dose, On Gabriela 06/01/16 at 1400, Stable 24hrs RT $ Given 06/01/2016 1:55 PM CASKET TRIMMER 800 mg documented in this encounter Care Teams Research Test Engine Operator Relationship Specialty Start Date End Date Tomas Hyman MD [address] [facility] [address] [place] [address] PCP - General Family Medicine 12/31/13 05/09/18 Isidro Heredia MD Rheumatology 02/09/11 documented as of this encounter
--- OUTSIDE RECORDS SUMMARY | 2024-05-03 04:10 | XMS_ITS | Encounter Summary ---
Author Organization [facility] Address [address] [facility] [address] Care Team Providers Care Geomorphologist Name Role Phone Isidro Heredia MD Unavailable [phone] Tomas Hyman MD Primary Care Provider Reason for Visit * Reason Comments Rheumatoid Arthritis * Evaluate & Treat (Routine) - Closed Specialty Diagnoses / Procedures Referred By Lawrence shah Referred To Contact Diagnoses Rheumatoid arthritis with rheumatoid factor, unspecified (HCC) Procedures [place] OFFICE VISIT DURING HOURS Tomas Hyman MD [address] [place] [address] Isidro Heredia MD [address] [place] [address] Referral ID Status Reason Start Date Expiration Date Visits Re quested Visits Authorized [id number] Closed 02/24/2015 02/24/2016 6 6 Encounter Details Date Type Department Care Team (Late st Contact Info) Description 09/13/2015 4:45 PM CDT Office Visit [facility] - Rheumatology [address] [place] [address] Isidro Heredia MD [address] [place] [address] Abnormal LFTs (Primary Dx); Rheumatoid arthritis of multiple sites with negative rheumatoid factor (HCC); Chronic pain syndrome; Right lumbar radiculopathy; Chronic right-sided low back pain with right-sided sciatica; Rheumatoid arthritis of multiple 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 [...] Time Taken Comments Blood Pressure 124/91 09/13/2015 4:19 PM CDT Pulse 70 09/13/2015 4:19 PM CDT Temperature - - Respiratory Rate - - Oxygen Saturation - - Inhaled Oxygen Concentration - - Weight 111.1 kg (245 lb) 09/13/2015 4:19 PM CDT Height 177.8 cm (5' 10 ) 09/13/2015 4:19 PM CDT Body Mass Index 35.15 09/13/2015 4:19 PM CDT documented in this encounter Progress Notes * Isidro Heredia MD - 09/13/2015 5:20 PM CDT Subjective: Chalino Deng 54 y.o. male is here for Chief Complaint Patient presents with ??? Rheumatoid Arthritis HPI: On mtx actemra prednisone 20 mg/d For ra and percocet skelaxin neurontin for lumbar radiculopathy Acute flare up lumbar radiculopathy while out of town then good reiwef with epid nerve injection drsmith Pain Level 6/10 ra better Am stiffness 1 hr Global 8/10 Fatigue yes Medication Side Effects no Good results local steroids left shoulder Current Outpatient Prescriptions on File Prior to Visit Medication Sig Dispense Refill ??? aspirin EC (ECOTRIN) 81 MG tablet Take 1 Tab by mouth once daily 90 Tab 3 ??? methotrexate 2.5 MG tablet TAKE 6 TABLETS EVERY 7 DAYS 72 Tab 1 ??? alendronate (FOSAMAX) 70 MG tablet TAKE 1 TABLET EVERY 7 DAYS BEFORE A MEAL IN MORNING WITH FULL GLASS OF WATER ON AN EMPTY STOMACH AND REMAIN UPRIGHT FOR 30 MINUTES 3 Tab 5 ??? pravastatin (PRAVACHOL) 20 MG tablet Take 1 Tab by mouth once daily 30 Tab 11 ??? carvedilol (COREG) 12.5 MG tablet Take 1 Tab by mouth 2 times daily with morning and evening meal 120 Tab 11 ??? naproxen (NAPROSYN) 500 MG tablet TAKE 1 TABLET TWICE A DAY 180 Tab 2 ??? gabapentin (NEURONTIN) 300 MG capsule Take 1 Cap by mouth 2 times daily 180 Cap 1 ??? predniSONE (DELTASONE) 10 MG tablet TAKE 1 TABLET BY MOUTH 2 TIMES A DAY 180 Tab 3 ??? metaxalone (SKELAXIN) 800 MG tablet TAKE 1 TABLET THREE TIMES A DAY 270 Tab 1 ??? Magnesium Citrate 100 MG TABS Take 1 Tab by mouth once daily ??? Multiple Vitamins-Minerals (OCUVITE PO) Take 1 Tab by mouth once daily ??? Multiple Vitamin (MULTI-VITAMIN PO) Take 1 Tab by mouth once daily ??? Cxnvreixmzy-Plokojclx-Wxa C-Mn (GLUCOSAMINE CHONDR 1500 COMPLX PO) Take 1 Tab by mouth once daily ??? ZYRTEC 10 MG TABS Take 10 mg by mouth once daily. Seasonal (nov. ??? KRILL OIL PO Take 500 mg by mouth once daily No current facility-administered medications on file prior [...] lungs Objective: General Appearance Physical Exam: BP 124/91 mmHg Pulse 70 Ht 1.778 m (5' 10 ) Wt 111.131 kg (245 lb) BMI 35.15 kg/m2 Head: perrla, eyes no irritation, vision and hearing intact, no oral ulcers, tongue normal, throat clear Neck:supple, no bruits, adenopathy Chest: clear, no rales, rhonchi or wheezes. Heart nsr. No S3,S4, or murmurs Abdomen:soft, no masses or tenderness, no organomegaly Genitalia, Groin, Buttocks: Back: no abnormal curvature,he has Tenderness lower back with muscle spasm Extremities: No edema, cyanosis, or rash RUE: 1/TJ, 5/SJ, 0/muscle tenderness or weakness LUE: 0/TJ, 5/SJ, 0/muscle tenderness or weakness RLE: 1/TJ, 1/SJ, 0/muscle tenderness or weakness LLE: 1/TJ, 1/SJ, 0/muscle tenderness or weakness Assessment: Encounter Diagnoses Name Primary? Abnormal LFTs Yes ??? Rheumatoid arthritis of multiple sites with negative rheumatoid factor ??? Chronic pain syndrome ??? Right lumbar radiculopathy ??? Chronic right-sided low back pain with right-sided sciatica ??? Rheumatoid arthritis of multiple 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 factor all better today same meds Plan: Plan Orders Placed This [...] Contact Info) Description 06/03/2024 1:00 PM VISUAL EFFECTS ARTIST Appointment [facility] - Rheumatology [address] [place] [address] 06/03/2024 2:00 PM VISUAL EFFECTS ARTIST Office Visit [facility] Medical [facility] - Rheumatology [address] [place] [address] Gloria Smith MD [address] [place] [phone] documented as of this encounter Visit Diagnoses Diagnosis Abnormal LFTs- Primary Other abnormal blood chemistry Rheumatoid arthritis of multiple sites with negative rheumatoid factor (HCC) Chronic pain syndrome Right lumbar radiculopathy Thoracic or lumbosacral neuritis or radiculitis, unspecified Chronic right-sided low back pain with right-sided sciatica Rheumatoid arthritis of multiple 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 factor (HCC) Rheumatoid arthritis documented in this encounter Care Teams Geomorphologist Relationship Specialty Start Date End Date Tomas Hyman MD [address] [facility] [address] [place] [address] PCP - General Family Medicine 12/31/13 05/09/18 Isidro Heredia MD Rheumatology 02/09/11 documented as of this encounter
--- OUTSIDE RECORDS SUMMARY | 2024-05-03 04:10 | XMS_ITS | Encounter Summary ---
Author Organization [facility] Address [address] [place] [address] Care Team Providers Care Executive Director Of Marketing Name Role Phone Isidro Heredia MD Unavailable [phone] Tomas Hyman MD Primary Care Provider [phone] Reason for Visit * Treatment (Routine) - Closed Specialty Diagnoses / Procedures Referred By Lawrence shah Referred To Contact Infusion Therapy Nurse Diagnoses Rheumatoid arthritis without rheumatoid factor, multiple sites (HCC) Procedures [place] INJECTION TOCILIZUMAB 1 MG Isidro Heredia MD [address] [place] [address] [phone] Referral ID Status Reason Start Date Expiration Date Visits Re quested Visits Authorized [id number] Closed 12/16/2015 06/07/2016 1 6 Encounter Details Date Type Department Care Team (Late st Contact Info) Description 04/06/2016 1:57 PM MINE ENVIRONMENTAL ENGINEER - 04/06/2016 11:59 PM MINE ENVIRONMENTAL ENGINEER Hospital Encounter [facility] Medical [facility] - Rheumatology [address] [place] [address] Isidro Heredia MD [address] [place] [address] Discharge Disposition: Home or Self [...] Sign Reading Time Taken Comments Blood Pressure 145/74 04/06/2016 3:05 PM MINE ENVIRONMENTAL ENGINEER Pulse 92 04/06/2016 3:05 PM MINE ENVIRONMENTAL ENGINEER Temperature 37 ??C (98.6 ??F) 04/06/2016 2:24 PM MINE ENVIRONMENTAL ENGINEER Respiratory Rate 16 04/06/2016 2:24 PM MINE ENVIRONMENTAL ENGINEER Oxygen Saturation - - Inhaled Oxygen Concentration - - Weight - - Height - - Body Mass Index - - documented in this encounter Discharge Instructions * Discharge Instructions* Jody Sahu RN - 04/06/2016 2:39 PM MINE ENVIRONMENTAL ENGINEER [place] Rheumatology Post Infusion instructions You have received [...] through Sunday 9-5 call the office at [phone] After hours or on the weekend call the exchange at [phone] If you have had lab work done [...] Hospital as your provider. Jody Sahu RN ENVIRONMENTAL ENGINEER documented in this encounter Medications at Time of Discharge Medication Sig Dispensed Refills Start Date End Date atorvastatin (LIPITOR) 40 MG tablet Take 1 (one) tablet by mouth at bedtime Rakuqshfjzi-Cxmbjqudp-Z it C-Mn (GLUCOSAMINE CHONDR 1500 COMPLX PO) [...] evening meal 120 Tab 11 06/14/2015 05/23/2016 diclofenac 0.1% (VOLTAREN) 0.1 % ophthalmic solution Instill 1 Drop into left eye once daily 05/04/2016 gabapentin (NEURONTIN) 300 MG capsule Take 1 [...] Progress Notes * Jody Sahu, RN - 04/06/2016 3:04 PM CST JOSE Deng [id number] 04/06/2016 Diagnosis: Rheumatoid arthritis without rheumatoid factor, multiple sites [M06.09]. Pt denies symptoms of infection or antibiotic use, no open wounds, or recent surgery, or plans for surgery in the next couple of weeks. Pt is aware that we use the 0-10 pain scale to assess discomfort. 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 front desk associate pt signs consent for treatment for this infusion. BP 164/100 Pulse 94 Temp 98.6 ??F Resp 16 @ MEDICATIONS FOR CURRENT ENCOUNTER: ?? SCHEDULED MEDICATIONS: ?? Tocilizumab 800 mg in 0.9% NaCl 100 mL IVPB, Intravenous, Once ?? CONTINUOUS MEDICATIONS: PRN MEDICATIONS: ?? Number of 24 gauge 3/4 inch placed in Right antecubital ?? 1 attempt(s). Patient monitored throughout procedure. Tolerated well? Yes Next treatment? 4 weeks Jody Sahu RN ENVIRONMENTAL ENGINEER documented in this encounter Plan of Treatment Upcoming Encounters Date Type Department Care Team (Late st Contact Info) Description 06/03/2024 1:00 PM MINE ENVIRONMENTAL ENGINEER Appointment [facility] - Rheumatology [address] [place] [address] 06/03/2024 2:00 PM MINE ENVIRONMENTAL ENGINEER Office Visit [facility] - Rheumatology [address] [place] [address] Gloria Smith MD [address] [place] [phone] documented as of this encounter Visit Diagnoses Diagnosis Rheumatoid arthritis of multiple sites with negative rheumatoid factor (HCC) documented in this encounter Administered Medications Inactive Administered Medications - up to 3 most recent administrations Medication Order MAR Action Action Date Dose Rate Site Tocilizumab 800 mg in 0.9% NaCl 100 mL IVPB 800 mg, Intravenous, ONCE, 1 dose, On Gabriela 04/06/16 at 1430, Stable 24hrs RT $ Given 04/06/2016 2:50 PM MINE ENVIRONMENTAL ENGINEER 800 mg documented in this encounter Care Teams Executive Director Of Marketing Relationship Specialty Start Date End Date Tomas Hyman MD [address] [place] [address] PCP - General Family Medicine 12/31/13 05/09/18 Isidro Heredia MD Rheumatology 02/09/11 documented as of this encounter
--- OUTSIDE RECORDS SUMMARY | 2024-05-03 04:10 | XMS_ITS | Encounter Summary ---
Author Organization [facility] Address [address] [facility] [place] [address] Care Team Providers Care Systems Test Analyst Name Role Phone Isidro Heredia MD Unavailable [phone] Tomas Hyman MD Primary Care Provider [phone] Reason for Visit * Reason Comments Refill Request Encounter Details Date Type Department Care Team (Late Contact Info) Description 07/14/2016 Refill [facility] - Rheumatology [address] [place] [address] Isidro Heredia MD [address] [place] [address] Refill Request Social History Tobacco Use [...] (Late Contact Info) Description 06/03/2024 1:00 PM QC LAB TECHNICIAN Appointment [facility] - Rheumatology [address] [place] [address] 06/03/2024 2:00 PM QC LAB TECHNICIAN Office Visit [facility] Rheumatology [address] [place] [address] Gloria Smith MD [address] [place], [place] [address], [place] [address] documented as of this encounter Visit Diagnoses Not on filedocumented in this encounter Care Teams Systems Test Analyst Relationship Specialty Start Date End Date Tomas Hyman MD [address] [place] [address] PCP - General Family Medicine 12/31/13 05/09/18 Isidro Heredia MD Rheumatology 02/09/11 documented as of this encounter
--- OUTSIDE RECORDS SUMMARY | 2024-05-03 04:10 | XMS_ITS | Encounter Summary ---
Author Organization [facility] Address [address] [place] [address] Care Team Providers Care Well Control Instructor Name Role Phone Isidro Heredia MD Unavailable [phone] Tomas Hyman MD Primary Care Provider [phone] Reason for Visit * Reason Onset Date Comments MEDICATION REFILL 12/13/2015 Encounter Details Date Type Department Care Team (Late Contact Info) Description 12/13/2015 Refill [facility] - Rheumatology [address] [place] [address] Isidro Heredia MD [address] [place] [address] MEDICATION REFILL Social History Tobacco Use [...] (Late Contact Info) Description 06/03/2024 1:00 PM MIXING PLANT DUMPER Appointment [facility] - Rheumatology [address] [place] [address] 06/03/2024 2:00 PM MIXING PLANT DUMPER Office Visit [facility] - Rheumatology [address] [place] [address] Gloria Smith MD [address] [place] [phone] documented as of this encounter Visit Diagnoses Diagnosis Rheumatoid arthritis of multiple 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 factor (HCC)- Primary Rheumatoid arthritis documented in this encounter Care Teams Well Control Instructor Relationship Specialty Start Date End Date Tomas Hyman MD [address] [facility] [address] [place] [address] PCP - General Family Medicine 12/31/13 05/09/18 Isidro Heredia MD Rheumatology 02/09/11 documented as of this encounter
--- OUTSIDE RECORDS SUMMARY | 2024-05-03 04:10 | XMS_ITS | Encounter Summary ---
Author Organization [facility] Address [address] [facility] [place] [address] Care Team Providers Care Electrolysist Name Role Phone Isidro Heredia MD Unavailable [phone] Tomas Hyman MD Primary Care Provider [phone] Reason for Visit * Reason Onset Date Comments MEDICATION REFILL 08/09/2016 Encounter Details Date Type Department Care Team (Late Contact Info) Description 08/09/2016 Refill [facility] - Rheumatology [address] [place] [address] Isidro Heredia MD [address] [place] [address] MEDICATION REFILL Social History Tobacco Use [...] (Late Contact Info) Description 06/03/2024 1:00 PM MANAGER UTILITY Appointment [facility] - Rheumatology [address] [place] [address] 06/03/2024 2:00 PM MANAGER UTILITY Office Visit [facility] - Rheumatology [address] [place] [address] Gloria Smith MD [address] [place] [phone] documented as of this encounter Visit Diagnoses Not on filedocumented in this encounter Care Teams Electrolysist Relationship Specialty Start Date End Date Tomas Hyman MD [address] [place] [address] PCP - General Family Medicine 12/31/13 05/09/18 Isidro Heredia MD Rheumatology 02/09/11 documented as of this encounter
--- OUTSIDE RECORDS SUMMARY | 2024-05-03 04:10 | XMS_ITS | Encounter Summary ---
Author Organization [facility] Address [address] [facility] [place] [address] Care Team Providers Care Director Child Abuse Therapy Name Role Phone Isidro Heredia MD Unavailable [phone] Tomas Hyman MD Primary Care Provider [phone] Reason for Visit * Reason Comments Refill Request Encounter Details Date Type Department Care Team (Late Contact Info) Description 07/20/2016 Refill [facility] - Rheumatology [address] [place] [address] Isidro Heredia MD [address] [place] [address] Refill Request Social History Tobacco Use [...] (Late Contact Info) Description 06/03/2024 1:00 PM OIL WELL LOGGER Appointment [facility] - Rheumatology [address] [place] [address] 06/03/2024 2:00 PM OIL WELL LOGGER Office Visit [facility] Rheumatology [address] [place] [address] Gloria Smith MD [address] [place], [place] [address] [address] documented as of this encounter Visit Diagnoses Not on filedocumented in this encounter Care Teams Director Child Abuse Therapy Relationship Specialty Start Date End Date Tomas Hyman MD [address] [place] [address] PCP - General Family Medicine 12/31/13 05/09/18 Isidro Heredia MD Rheumatology 02/09/11 documented as of this encounter
--- OUTSIDE RECORDS SUMMARY | 2024-05-03 04:10 | XMS_ITS | Encounter Summary ---
Author Organization [facility] Address [address] [facility] [place] [address] Care Team Providers Care Salt Cutter Name Role Phone Isidro Heredia MD Unavailable [phone] Tomas Hyman MD Primary Care Provider Reason for Visit * Reason Onset Date Comments MEDICATION REFILL 04/05/2016 Encounter Details Date Type Department Care Team (Late Contact Info) Description 04/05/2016 Refill [facility] - Rheumatology [address] [place] [address] Isidro Heredia MD [address] [place] [address] MEDICATION REFILL Social History Tobacco Use [...] (Late Contact Info) Description 06/03/2024 1:00 PM MARKETING PR INTERN Appointment [facility] - Rheumatology [address] [place] [address] 06/03/2024 2:00 PM MARKETING PR INTERN Office Visit [facility] - Rheumatology [address] [place] [address] Gloria Smith MD [address] [place] [address] documented as of this encounter Visit Diagnoses Diagnosis Rheumatoid arthritis of multiple 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 factor (HCC) Rheumatoid arthritis documented in this encounter Care Teams Salt Cutter Relationship Specialty Start Date End Date Tomas Hyman MD [address] [place] [address] PCP - General Family Medicine 12/31/13 05/09/18 Isidro Heredia MD Rheumatology 02/09/11 documented as of this encounter
--- OUTSIDE RECORDS SUMMARY | 2024-05-03 04:10 | XMS_ITS | Encounter Summary ---
Author Organization [facility] Address [address] [place] [address] Care Team Providers Care Motion Graphics Designer Name Role Phone Isidro Heredia MD Unavailable [phone] Tomas Hyman MD Primary Care Provider [phone] Reason for Visit * Treatment (Routine) - Closed Specialty Diagnoses / Procedures Referred By Lawrence shah Referred To Contact Infusion Therapy Nurse Diagnoses Rheumatoid arthritis(714.0) (HCC) Rheumatoid arthritis without rheumatoid factor, multiple sites (HCC) Procedures [place] INFLIXIMAB INJECTION [place] INJECTION TOCILIZUMAB 1 MG Isidro Heredia MD [address] [place] [address] [address] Referral ID Status Reason Start Date Expiration Date Visits Re quested Visits Authorized [id number] Closed 01/07/2015 01/08/2016 1 12 Encounter Details Date Type Department Care Team (Late st Contact Info) Description 12/14/2015 2:00 PM CDT - 12/14/2015 11:59 PM CDT Hospital Encounter [facility] - Rheumatology [address] [place] [address] Isidro Heredia MD [address] [place] [address] Discharge Disposition: Home or Self [...] Sign Reading Time Taken Comments Blood Pressure 125/81 12/14/2015 2:18 PM CDT Pulse 81 12/14/2015 2:18 PM CDT Temperature 36.4 ??C (97.6 ??F) 12/14/2015 2:18 PM CD T Respiratory Rate 16 12/14/2015 2:18 PM CDT Oxygen Saturation - - Inhaled Oxygen Concentration - - Weight 115.2 kg (254 lb) 12/14/2015 2:18 PM CDT Height - - Body Mass Index 36.45 10/13/2015 3:55 PM CDT documented in this encounter Discharge Instructions * Discharge Instructions* Carlos Foreman RN - 12/14/2015 2:43 PM CDT [place] Rheumatology Post Infusion instructions You [...] through Sunday 9-5 call the office at [phone] After hours or on the weekend call the exchange at [phone] If you have had lab work done [...] [facility] as your provider. Carlos Foreman RN documented in this encounter Medications at Time of Discharge Medication Sig Dispensed Refills Start Date End Date atorvastatin (LIPITOR) 40 MG tablet Take 1 (one) tablet by mouth at bedtime Ihdurdeihhx-Hislpniei-K it C-Mn (GLUCOSAMINE CHONDR 1500 COMPLX PO) [...] Pain Dx: 714.0 RA Earliest Fill Date: 12/15/15 120 Tab 0 12/15/2015 01/11/2016 predniSONE (DELTASONE) 10 MG tablet TAKE 1 TABLET TWICE A DAY 180 Tab 2 09/24/2015 06/19/2016 SKELAXIN 800 MG tablet TAKE 1 TABLET THREE TIMES A DAY 270 Tab 0 11/15/2015 03/02/2016 documented as of this encounter Progress Notes * Carlos Foreman RN - 12/14/2015 2:42 PM CDT JOSE Deng [id number] 12/14/2015 Diagnosis: Rheumatoid arthritis without rheumatoid factor, multiple sites [M06.09]. BP 125/81 mmHg Pulse 81 Temp(Src) 97.6 ??F Resp 16 Wt 115.214 kg (254 lb) @ MEDICATIONS FOR CURRENT ENCOUNTER: ?? [...] st Contact Info) Description 06/03/2024 1:00 PM PATENT CLERK Appointment [facility] - Rheumatology [address] [place] [phone] 06/03/2024 2:00 PM PATENT CLERK Office Visit [facility] - Rheumatology [address] [place] [phone] Gloria Smith MD [address] [place] [phone] documented as of this encounter Visit Diagnoses Diagnosis Rheumatoid arthritis of multiple sites with negative rheumatoid factor (HCC) documented in this encounter Administered Medications Inactive Administered Medications - up to 3 most recent administrations Medication Order MAR Action Action Date Dose Rate Site Tocilizumab 800 mg in 0.9% NaCl IVPB 800 mg, at 100 mL/hr, Intravenous, ONCE, 1 dose, On Sun12/14/15 at 1430, 2 vials Actemra 400mg 0 waste. Stable 24hrs RT $ Given 12/14/2015 2:30 PM CDT 800 mg 100 mL/hr documented in this encounter Care Teams Motion Graphics Designer Relationship Specialty Start Date End Date Tomas Hyman MD [address] [facility] [address] [place] [address] PCP - General Family Medicine 12/31/13 05/09/18 Isidro Heredia MD Rheumatology 02/09/11 documented as of this encounter
--- OUTSIDE RECORDS SUMMARY | 2024-05-03 04:10 | XMS_ITS | Encounter Summary ---
Author Organization [facility] Address [address] [place] [address] Care Team Providers Care Tanning Consultant Name Role Phone Isidro Heredia MD Unavailable [phone] Tomas Hyman MD Primary Care Provider [phone] Encounter Details Date Type Department Care Team (Late st Contact Info) Description 01/11/2016 Orders Only [facility] Medical [facility] - Rheumatology [address] [place] [address] [phone] Isidro Heredia MD [address] [place] [address] Rheumatoid arthritis of multiple sites with [...] encounter Progress Notes * Vee Hair - 01/17/2016 8:59 AM CDTQuick Note: Patient notified via mychart. * Isidro Heredia MD - 01/15/2016 11:20 AM CDTQuick Note: Chol good 176 documented in this encounter Plan of Treatment Upcoming Encounters Date Type Department Care Team (Late st Contact Info) Description 06/03/2024 1:00 PM HEALTH INFORMATICS INSTRUCTOR Appointment [facility] - Rheumatology [address] [place] [address] [phone] 06/03/2024 2:00 PM HEALTH INFORMATICS INSTRUCTOR Office Visit [facility] - Rheumatology [address] [place] [address] Gloria Smith MD [address] [place] [phone] documented as of this encounter Procedures Procedure Name Priority Date/Time Associated Diagnosis Comments LIPID PROFILE W TCHOL/HDL Routine 01/11/2016 2:00 AM CDT Rheumatoid arthritis of multiple sites with negative rheumatoid factor (HCC) documented in this encounter Results * (ABNORMAL) LIPID PROFILE W TCHOL/HDL (PO REF LAB) (01/11/2016 2:00 AM CDT) Cholesterol 176 100 - 199 mg/dL [facility] INSURANCE BILL Triglycerides 228(H) 0 - 149 mg/dL [facility] INSURANCE BILL HDL Cholesterol 64 >39 mg/dL [facility] INSURANCE BILL Comment: According to ATP-III Guidelines, HDL-C >59 mg/dL is considered a negative risk factor for CHD. VLDL Calculated 46(H) 5 - 40 mg/dL [facility] INSURANCE BILL LDL Calculated 66 0 - 99 mg/dL [facility] INSURANCE BILL Comment NOT NEEDED [facility] INSURANCE BILL Comment:Ancillary determined the test is not needed Cholesterol/HDL Ratio 2.8 0.0 - 5.0 ratio units [facility] INSURANCE BILL Comment: ? T. Chol/HDL Ratio ? Men ??Women ? 1/2 Avg.Risk ??3.4 ?3.3 ? Avg.Risk ??5.0 ?4.4 ?2X Avg.Risk ??9.6 ?7.1 ?3X Avg.Risk 23.4 ?? 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
--- OUTSIDE RECORDS SUMMARY | 2024-05-03 04:10 | XMS_ITS | Encounter Summary ---
Author Organization [facility] Address [address] [facility] [place] [address] Care Team Providers Care Epic Willow Analyst Name Role Phone Isidro Heredia MD Unavailable [phone] oTmas Hyman MD Primary Care Provider [phone] Reason for Visit * Reason Comments Refill Request Encounter Details Date Type Department Care Team (Late Contact Info) Description 09/13/2015 Refill [facility] - Rheumatology [address] [place] [address] Isidro Heredia MD [address] [place] [address] Refill Request Social History Tobacco Use [...] (Late Contact Info) Description 06/03/2024 1:00 PM APPLICATIONS PROCESSOR Appointment [facility] - Rheumatology [address] [place] [address] 06/03/2024 2:00 PM APPLICATIONS PROCESSOR Office Visit [facility] Rheumatology [address] [place] [address] Gloria Smith MD [address] [place], [place] [address], [place] [address] documented as of this encounter Visit Diagnoses Not on filedocumented in this encounter Care Teams Epic Willow Analyst Relationship Specialty Start Date End Date Tomas Hyman MD [address] [place] [address] PCP - General Family Medicine 12/31/13 05/09/18 Isidro Heredia MD Rheumatology 02/09/11 documented as of this encounter
--- OUTSIDE RECORDS SUMMARY | 2024-05-03 04:10 | XMS_ITS | Encounter Summary ---
Author Organization [facility] Address [address] [facility] [place] [address] Care Team Providers Care Commercial Construction Superintendent Name Role Phone Isidro Heredia MD Unavailable [phone] Tomas Hyman MD Primary Care Provider [phone] Reason for Visit * Reason Comments Refill Request Encounter Details Date Type Department Care Team (Late Contact Info) Description 11/12/2015 Refill [facility] - Rheumatology [address] [place] [address] Isidro Heredia MD [address] [place] [address] Refill Request Social History Tobacco Use [...] (Late Contact Info) Description 06/03/2024 1:00 PM COLOR SHOP HELPER Appointment [facility] - Rheumatology [address] [place] [address] 06/03/2024 2:00 PM COLOR SHOP HELPER Office Visit [facility] Rheumatology [address] [place] [address] Gloria Smith MD [address] [place], [place] [address] [address] documented as of this encounter Visit Diagnoses Not on filedocumented in this encounter Care Teams Commercial Construction Superintendent Relationship Specialty Start Date End Date Tomas Hyman MD [address] [place] [address] PCP - General Family Medicine 12/31/13 05/09/18 Isidro Heredia MD Rheumatology 02/09/11 documented as of this encounter
--- OUTSIDE RECORDS SUMMARY | 2024-05-03 04:10 | XMS_ITS | Encounter Summary ---
Author Organization [facility] Address [address] [place] [address] Care Team Providers Care Grinder Dresser Name Role Phone Isidro Heredia MD Unavailable [phone] Tomas Hyman MD Primary Care Provider [phone] Reason for Visit * Reason Comments Refill Request Encounter Details Date Type Department Care Team (Late Contact Info) Description 12/14/2015 Refill [facility] - Rheumatology [address] [place] [address] Isidro Heredia MD [address] [place] [address] Refill Request Social History Tobacco Use [...] (Late Contact Info) Description 06/03/2024 1:00 PM RIGGING ENGINEER Appointment [facility] - Rheumatology [address] [place] [address] 06/03/2024 2:00 PM RIGGING ENGINEER Office Visit [facility] Rheumatology [address] [place] [address] Gloria Smith MD [address] [place], [place] [address], [place] [address] documented as of this encounter Visit Diagnoses Not on filedocumented in this encounter Care Teams Grinder Dresser Relationship Specialty Start Date End Date Tomas Hyman MD [address] [place] [address] PCP - General Family Medicine 12/31/13 05/09/18 Isidro Heredia MD Rheumatology 02/09/11 documented as of this encounter
--- OUTSIDE RECORDS SUMMARY | 2024-05-03 04:10 | XMS_ITS | Encounter Summary ---
Author Organization [facility] Address [address] [place] [address] Care Team Providers Care Sap Crm Developer Name Role Phone Isidro Heredia MD Unavailable [phone] Tomas Hyman MD Primary Care Provider Reason for Visit * Reason Onset Date Comments MEDICATION REFILL 03/02/2016 Encounter Details Date Type Department Care Team (Late Contact Info) Description 03/02/2016 Refill [facility] - Rheumatology [address] [place] [address] Isidro Heredia MD [address] [place] [address] MEDICATION REFILL Social History Tobacco Use [...] (Late Contact Info) Description 06/03/2024 1:00 PM AREA ATTENDANT Appointment [facility] - Rheumatology [address] [place] [address] 06/03/2024 2:00 PM AREA ATTENDANT Office Visit [facility] - Rheumatology [address] [place] [address] Gloria Smith MD [address] [place] [address] documented as of this encounter Visit Diagnoses Not on filedocumented in this encounter Care Teams Sap Crm Developer Relationship Specialty Start Date End Date Tomas Hyman MD [address] [place] [address] PCP - General Family Medicine 12/31/13 05/09/18 Isidro Heredia MD Rheumatology 02/09/11 documented as of this encounter
--- OUTSIDE RECORDS SUMMARY | 2024-05-03 04:10 | XMS_ITS | Encounter Summary ---
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, multiple sites (HCC) Procedures VA INJECTION TOCILIZUMAB 1 MG Isidro Heredia MD [address] [place] [address] [address] Referral ID Status Reason Start Date Expiration Date Visits Re quested Visits Authorized [id number] Closed 06/26/2016 07/28/2016 1 6 Encounter Details Date Type Department Care Team (Late st Contact Info) Description 06/29/2016 1:30 PM PORTRAIT STUDIO PHOTOGRAPHER - 06/29/2016 11:59 PM PORTRAIT STUDIO PHOTOGRAPHER Hospital Encounter [facility] Medical [facility] - Rheumatology [address] [place] [address] Isidro Heredia MD [address] [place] [address] Discharge Disposition: Home or Self [...] Time Taken Comments Blood Pressure 125/84 06/29/2016 2:00 PM PORTRAIT STUDIO PHOTOGRAPHER Pulse 80 06/29/2016 2:00 PM PORTRAIT STUDIO PHOTOGRAPHER Temperature 36.8 ??C (98.2 ??F) 06/29/2016 2:00 PM CS T Respiratory Rate 16 06/29/2016 2:00 PM PORTRAIT STUDIO PHOTOGRAPHER Oxygen Saturation - - Inhaled Oxygen Concentration - - Weight 116.6 kg (257 lb) 06/29/2016 2:00 PM PORTRAIT STUDIO PHOTOGRAPHER Height - - Body Mass Index 36.88 01/11/2016 3:12 PM CDT documented in this encounter Discharge Instructions * Discharge Instructions* Carlos Foreman RN - 06/29/2016 2:22 PM PORTRAIT STUDIO PHOTOGRAPHER [place] Rheumatology Post Infusion instructions You have [...] Sunday through 01-02 call the office at [phone] After hours or on the weekend call the exchange at [phone] If you have had lab work done [...] [facility] as your provider. Carlos Foreman RN RAIT STUDIO PHOTOGRAPHER documented in this encounter Medications at Time of Discharge Medication Sig Dispensed Refills Start Date End Date atorvastatin (LIPITOR) 40 MG tablet Take 1 (one) tablet by mouth at bedtime Avsrmkkvrnp-Vzlnslrii-Q it C-Mn (GLUCOSAMINE CHONDR 1500 COMPLX PO) [...] 1 06/08/2016 02/02/2017 oxyCODONE-acetaminophen (PERCOCET) 5-325 MG tabletIndications:Rheum atoid arthritis of multiple 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 factor (HCC) Take 1 Tab by mouth every 6 hours as needed for Pain Dx: 714.0 RA 120 Tab 06/29/2016 07/27/2016 predniSONE (DELTASONE) 10 MG tablet TAKE 1 TABLET TWICE A DAY 180 Tab 1 06/19/2016 12/16/2016 documented as of this encounter Progress Notes * Carlos Foreman RN - 06/29/2016 2:17 PM CST JOSE Chalino Degn [id number] 06/29/2016 Diagnosis: Rheumatoid arthritis without rheumatoid factor, multiple sites [M06.09]. BP 125/84 Pulse 80 Temp 98.2 ??F Resp 16 Wt 116.6 kg (257 lb) BMI 36.88 kg/m2 @ MEDICATIONS FOR CURRENT ENCOUNTER: ?? SCHEDULED MEDICATIONS: ?? Tocilizumab 800 mg in 0.9% NaCl 100 mL IVPB, Intravenous, Once ?? CONTINUOUS MEDICATIONS: PRN MEDICATIONS: ?? Number of 24 gauge .75 inch placed in Left hand ?? 1 attempt(s). Pt had palap removed from colon 2wks ago. Per pt. Surgeon cleared him yesterday for Actemra infusion today. Dr Heredia also informed prior to tx today. Okayed for tx by same' Patient monitored throughout procedure. Tolerated well? Yes Next treatment? 4wk Carlos Foreman RN RAIT STUDIO PHOTOGRAPHER documented in this encounter Plan of Treatment Upcoming Encounters Date Type Department Care Team (Late st Contact Info) Description 06/03/2024 1:00 PM PORTRAIT STUDIO PHOTOGRAPHER Appointment [facility] - Rheumatology [address] [place] [address] [phone] 06/03/2024 2:00 PM PORTRAIT STUDIO PHOTOGRAPHER Office Visit [facility] - Rheumatology [address] [place] [address] [phone] Gloria Smith MD [address] [place] [phone] documented as of this encounter Visit Diagnoses Diagnosis Rheumatoid arthritis of multiple sites with negative rheumatoid factor (HCC) documented in this encounter Administered Medications Inactive Administered Medications - up to 3 most recent administrations Medication Order MAR Action Action Date Dose Rate Site Tocilizumab 800 mg in 0.9% NaCl 100 mL IVPB 800 mg, at 100 mL/hr, Intravenous, ONCE, 1 dose, On Gabriela 06/29/16 at 1400, Stable 24hrs RT $ Given 06/29/2016 2:10 PM PORTRAIT STUDIO PHOTOGRAPHER 800 mg 100 mL/hr documented in this encounter Care Teams Nib Adjuster Relationship Specialty Start Date End Date Tomas Hyman MD [address] [place] [address] PCP - General Family Medicine 12/31/13 05/09/18 Isidro Heredia MD Rheumatology 02/09/11 documented as of this encounter
--- OUTSIDE RECORDS SUMMARY | 2024-05-03 04:10 | XMS_ITS | Encounter Summary ---
Author Organization [facility] Address [address] [facility] [place] [address] Care Team Providers Care Decorative Greens Cutter Name Role Phone Isidro Heredia MD Unavailable [phone] Tomas Hyman MD Primary Care Provider [phone] Reason for Visit * Treatment (Routine) - Closed Specialty Diagnoses / Procedures Referred By Lawrence sahh Referred To Contact [place] [address] [address] [facility] [address] [place] [address] Referral ID Status Reason Start Date Expiration Date Visits Re quested Visits Authorized [id number] Closed 09/07/2015 03/05/2016 1 1 Encounter Details Date Type Department Care Team (Latest Contact Info) Description 09/07/2015 9:51 AM CDT - 09/07/2015 9:53 AM CDT Hospital Encounter [facility] Health Pain Care [address] [place] [address] [place] [address] [address] Discharge Disposition: Home or Self [...] Sig Dispensed Refills Start Date End Date Ntriwqumhbb-Dvccxdtwq-B it C-Mn (GLUCOSAMINE CHONDR 1500 COMPLX PO) [...] evening meal 120 Tab 11 06/14/2015 05/23/2016 esomeprazole (NEXIUM) 40 MG capsule Take 1 Cap by mouth daily before breakfast 90 Cap 3 11/05/2014 09/13/2015 gabapentin (NEURONTIN) 300 MG capsule Take 1 [...] A DAY 180 Tab 2 04/26/2015 09/21/2016 oxyCODONE-acetaminophen (PERCOCET) 5-325 MG tabletIndications:Rheum atoid arthritis of multiple 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 factor (HCC) Take 1 Tab by mouth every 6 hours as needed for Pain Dx: 714.0 RA 120 Tab 0 08/16/2015 09/13/2015 pravastatin (PRAVACHOL) 20 MG tablet Take 1 Tab by mouth once daily 30 Tab 11 06/14/2015 11/16/2015 predniSONE (DELTASONE) 10 MG tablet TAKE 1 TABLET BY MOUTH 2 TIMES A DAY 180 Tab 3 11/05/2014 09/24/2015 documented as of this encounter Plan of Treatment Upcoming Encounters Date Type Department Care Team (Late st Contact Info) Description 06/03/2024 1:00 PM ASSOCIATE DIRECTOR OF NURSING Appointment [facility] - Rheumatology [address] [place] [address] [phone] 06/03/2024 2:00 PM ASSOCIATE DIRECTOR OF NURSING Office Visit [facility] - Rheumatology [address] [place] [address] [phone] Gloria Smith MD [address] [place] [phone] documented as of this encounter Visit Diagnoses Not on filedocumented in this encounter Care Teams Decorative Greens Cutter Relationship Specialty Start Date End Date Tomas Hyman MD [address] [facility] [address] [place] [address] PCP - General Family Medicine 12/31/13 05/09/18 Isidro Heredia MD Rheumatology 02/09/11 documented as of this encounter
--- OUTSIDE RECORDS SUMMARY | 2024-05-03 04:10 | XMS_ITS | Encounter Summary ---
Author Organization [facility] Address [address] [facility] [place] [address] Care Team Providers Care Rag Baler Name Role Phone Isidro Heredia MD Unavailable [phone] Tomas Hyman MD Primary Care Provider [phone] Reason for Visit * Reason Onset Date Comments MEDICATION REFILL 11/15/2015 Encounter Details Date Type Department Care Team (Late Contact Info) Description 11/15/2015 Refill [facility] - Rheumatology [address] [place] [address] Isidro Heredia MD [address] [place] [address] MEDICATION REFILL Social History Tobacco Use [...] (Late Contact Info) Description 06/03/2024 1:00 PM CONSUMER RELATIONS COMPLAINT CLERK Appointment [facility] - Rheumatology [address] [place] [address] 06/03/2024 2:00 PM CONSUMER RELATIONS COMPLAINT CLERK Office Visit [facility] - Rheumatology [address] [place] [address] Gloria Smith MD [address] [place] [address] documented as of this encounter Visit Diagnoses Not on filedocumented in this encounter Care Teams Rag Baler Relationship Specialty Start Date End Date Tomas Hyman MD [address] [place] [address] PCP - General Family Medicine 12/31/13 05/09/18 Isidro Heredia MD Rheumatology 02/09/11 documented as of this encounter
--- OUTSIDE RECORDS SUMMARY | 2024-05-03 04:10 | XMS_ITS | Encounter Summary ---
Author Organization [facility] Address [address] [facility] [place] [address] Care Team Providers Care Entertainment Manager Name Role Phone Isidro Heredia MD Unavailable [phone] Tomas Hyman MD Primary Care Provider [phone] Reason for Visit * Treatment (Routine) - Closed Specialty Diagnoses / Procedures Referred By Lawrence shah Referred To Contact Infusion Therapy Nurse Diagnoses Rheumatoid arthritis without rheumatoid factor, multiple sites (HCC) Procedures [place] INJECTION TOCILIZUMAB 1 MG Isidro Heredia MD [address] [place] [address] [address] Referral ID Status Reason Start Date Expiration Date Visits Re quested Visits Authorized [id number] Closed 12/16/2015 06/07/2016 1 6 Encounter Details Date Type Department Care Team (Late st Contact Info) Description 05/04/2016 1:11 PM WIDE PIECE GOODS INSPECTOR - 05/04/2016 11:59 PM WIDE PIECE GOODS INSPECTOR Hospital Encounter [facility] Medical [facility] - Rheumatology [address] [place] [address] Isidro Heredia MD [address] [place] [address] Discharge Disposition: Home or Self [...] Sign Reading Time Taken Comments Blood Pressure 154/92 05/04/2016 1:27 PM WIDE PIECE GOODS INSPECTOR Pulse 96 05/04/2016 1:27 PM WIDE PIECE GOODS INSPECTOR Temperature 36.7 ??C (98 ??F) 05/04/2016 1:27 PM WIDE PIECE GOODS INSPECTOR Respiratory Rate 18 05/04/2016 1:27 PM WIDE PIECE GOODS INSPECTOR Oxygen Saturation - - Inhaled Oxygen Concentration - - Weight 117.9 kg (260 lb) 05/04/2016 1:27 PM WIDE PIECE GOODS INSPECTOR Height - - Body Mass Index 37.31 01/11/2016 3:12 PM CDT documented in this encounter Discharge Instructions * Discharge Instructions* Jody Sahu RN - 05/04/2016 1:40 PM WIDE PIECE GOODS INSPECTOR IN Rheumatology Post Infusion instructions You have received [...] through Sunday 9-5 call the office at [phone] After hours or on the weekend call the exchange at [phone] If you have had lab work done [...] Center as your provider. Jody Sahu RN PIECE GOODS INSPECTOR documented in this encounter Medications at Time of Discharge Medication Sig Dispensed Refills Start Date End Date atorvastatin (LIPITOR) 40 MG tablet Take 1 (one) tablet by mouth at bedtime Qeaoxxiunsk-Bvchyotbc-L it C-Mn (GLUCOSAMINE CHONDR 1500 COMPLX PO) [...] Progress Notes * Jody Sahu RN - 05/04/2016 1:58 PM CST JOSE Deng [id number] 05/04/2016 Diagnosis: Rheumatoid arthritis without rheumatoid factor, multiple sites [M06.09]. Pt denies symptoms of infection or antibiotic use, no open wounds, or recent surgery, or plans for surgery in the next couple of weeks. Pt is aware that we use the 0-10 pain scale to assess discomfort. 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 front services agent pt signs consent for treatment for this infusion. BP 154/92 Pulse 96 Temp 98 ??F Resp 18 Wt 117.9 kg (260 lb) BMI 37.31 kg/m2 @ MEDICATIONS FOR CURRENT ENCOUNTER: ?? SCHEDULED MEDICATIONS: ?? Tocilizumab 800 mg in 0.9% NaCl 100 mL IVPB, Intravenous, Once ?? CONTINUOUS MEDICATIONS: PRN MEDICATIONS: ?? Number of 24 gauge 3/4 inch placed in Left hand ?? 1 attempt(s). Patient monitored throughout procedure. Tolerated well? Yes Next treatment? 4 weeks Jody Sahu RN PIECE GOODS INSPECTOR documented in this encounter Plan of Treatment Upcoming Encounters Date Type Department Care Team (Late st Contact Info) Description 06/03/2024 1:00 PM WIDE PIECE GOODS INSPECTOR Appointment [facility] - Rheumatology [address] [place] [address] 06/03/2024 2:00 PM WIDE PIECE GOODS INSPECTOR Office Visit [facility] - Rheumatology [address] [place] [address] Gloria Smith MD [address] [place] [phone] documented as of this encounter Visit Diagnoses Diagnosis Rheumatoid arthritis of multiple sites with negative rheumatoid factor (HCC) documented in this encounter Administered Medications Inactive Administered Medications - up to 3 most recent administrations Medication Order MAR Action Action Date Dose Rate Site Tocilizumab 800 mg in 0.9% NaCl 100 mL IVPB 800 mg, Intravenous, ONCE, 1 dose, On Gabriela 05/04/16 at 1345, Stable 24hrs RT $ Given 05/04/2016 1:45 PM WIDE PIECE GOODS INSPECTOR 800 mg documented in this encounter Care Teams Entertainment Manager Relationship Specialty Start Date End Date Tomas Hyman MD [address] [facility] [address] [place] [address] PCP - General Family Medicine 12/31/13 05/09/18 Isidro Heredia MD Rheumatology 02/09/11 documented as of this encounter
--- OUTSIDE RECORDS SUMMARY | 2024-05-03 04:10 | XMS_ITS | Encounter Summary ---
Author Organization [facility] Address [address] [facility] [place] [address] Care Team Providers Care College Athletic Director Name Role Phone Isidro Heredia MD Unavailable Tomas Hyman MD Primary Care Provider [phone] Reason for Visit * Reason Comments Rheumatoid Arthritis * Evaluate & Treat (Routine) - Closed Specialty Diagnoses / Procedures Referred By Lawrence t Referred To Contact Diagnoses Rheumatoid arthritis with rheumatoid factor, unspecified (HCC) Procedures NM OFFICE VISIT DURING HOURS Tomas Hyman MD [address] [place] [address] Isidro Heredia MD [address] [place] [address] Referral ID Status Reason Start Date Expiration Date Visits Re quested Visits Authorized [id number] Closed 02/24/2015 02/24/2016 6 6 Encounter Details Date Type Department Care Team (Late st Contact Info) Description 10/13/2015 3:45 PM CDT Office Visit [facility] - Rheumatology [address] [place] [address] Isidro Heredia MD [address] [place] [address] Encounter for long-term (current) use of medications (Primary Dx); Rheumatoid arthritis of 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 factor (HCC); Chronic right-sided low back pain with right-sided sciatica; Chronic pain syndrome; Right lumbar radiculopathy; Rheumatoid arthritis of multiple 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 factor (HCC); Hypothyroidism due to acquired atrophy of thyroid Social History Tobacco Use Types Packs/Day Years [...] Time Taken Comments Blood Pressure 129/85 10/13/2015 3:55 PM CDT Pulse 85 10/13/2015 3:55 PM CDT Temperature - - Respiratory Rate - - Oxygen Saturation - - Inhaled Oxygen Concentration - - Weight 110.2 kg (243 lb) 10/13/2015 3:55 PM CDT Height 177.8 cm (5' 10 ) 10/13/2015 3:55 PM CDT Body Mass Index 34.87 10/13/2015 3:55 PM CDT documented in this encounter Progress Notes * Isidro Heredia MD - 10/13/2015 4:22 PM CDT Subjective: Chalino Deng 54 y.o. male is here for Chief Complaint Patient presents with ??? Rheumatoid Arthritis HPI: On actemra mtx pred 10 mg bid for ra and percocet skelaxin neurontin For chronio pain and lumbar radiculopathy Pain Level 6/10 shoulders knees hands Am stiffness 1 hr Global 5/10 Fatigue yes Medication Side Effects no Current Outpatient Prescriptions on File Prior to [...] 2 times daily 180 Cap 1 ??? metaxalone (SKELAXIN) 800 MG tablet TAKE 1 TABLET THREE TIMES A DAY 270 Tab 1 ??? Magnesium Citrate 100 MG TABS Take 1 Tab by mouth once daily ??? Multiple Vitamins-Minerals (OCUVITE PO) Take 1 Tab by mouth once daily ??? Multiple Vitamin (MULTI-VITAMIN PO) Take 1 Tab by mouth once daily ??? Pjydvzvkbtd-Ftpuhjaky-Sxg C-Mn (GLUCOSAMINE CHONDR 1500 COMPLX PO) Take [...] heart lungs Objective: General Appearance Physical Exam: using cane BP 129/85 mmHg Pulse 85 Ht 1.778 m (5' 10 ) Wt 110.224 kg (243 lb) BMI 34.87 kg/m2 Head: perrla, eyes no irritation, vision and hearing intact, no oral ulcers, tongue normal, throat clear Neck:supple, no bruits, adenopathy Chest: clear, no rales, rhonchi or wheezes. Heart nsr. No S3,S4, or murmurs Abdomen:soft, no masses or tenderness, no organomegaly Genitalia, Groin, Buttocks: Back: no abnormal curvature, tenderness, or muscle spasm Extremities: No edema, cyanosis, or rash RUE: 10/TJ, 6/SJ, 0 /muscle tenderness or weakness LUE: 10/TJ, 06SJ, 0/muscle tenderness or weakness RLE: 1/TJ, 0/SJ, 0/muscle tenderness or weakness LLE: 1/TJ, 0/SJ, 0/muscle tenderness or weakness Assessment: Encounter Diagnoses Name Primary? Encounter for long-term (current) use of medications Yes ??? Rheumatoid arthritis of multiple sites with negative rheumatoid factor ??? Chronic right-sided low back pain with right-sided sciatica ??? Chronic pain syndrome ??? Right lumbar radiculopathy ??? Rheumatoid arthritis of multiple 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 factor ??? Hypothyroidism due to acquired atrophy of thyroid Poorly controlled ra chronic pain and lbp Same meds Plan: Plan Orders Placed This Encounter ??? CBC W AUTO DIFFERENTIAL ??? COMPREHENSIVE METABOLIC PANEL ??? LIPID PROFILE W TCHOL/HDL (PO REF LAB) ??? TSH ??? SED RATE AUTO (ESR) ??? T4 TOTAL ??? oxyCODONE-acetaminophen (PERCOCET) 5-325 MG tablet Sig: Take 1 Tab by mouth every 6 hours as needed for Pain Dx: 714.0 RA Dispense: 120 Tab Refill: 0 Follow up in office in 4 weeks documented in this encounter Plan of Treatment Upcoming Encounters Date Type Department Care Team (Late st Contact Info) Description 06/03/2024 1:00 PM THREAD SINGER Appointment [facility] - Rheumatology [address] [place] [address] [phone] 06/03/2024 2:00 PM THREAD SINGER Office Visit [facility] - Rheumatology [address] [place] [address] Gloria Smith MD [address] [place] [phone] documented as of this encounter Procedures Procedure Name Priority Date/Time Associated Diagnosis Comments LIPID PROFILE W TCHOL/HDL Routine 10/13/2015 3:30 PM CDT Encounter for long-term (current) use of medications ERYTHROCYTE SEDIMENTATION RATE Routine 10/13/2015 3:30 PM CDT Encounter for long-term (current) use of medications CBC W AUTO DIFFERENTIAL Routine 10/13/2015 3:30 PM CDT Encounter for long-term (current) use of medications COMPREHENSIVE METABOLIC PANEL Routine 10/13/2015 3:30 PM CDT Encounter for long-term (current) use of medications TSH Routine 10/13/2015 3:30 PM CDT Encounter for long-term (current) use of medications T4 TOTAL Routine 10/13/2015 3:30 PM CDT Hypothyroidism due to acquired atrophy of thyroid documented in this encounter Results * T4 TOTAL (10/13/2015 3:30 PM CDT) T4 Total 4.9 4.7 - 13.3 ug/dL [facility] INSURANCE BILL Blood specimen (specimen) BLOOD SPECIMEN / Unknown 10/13/2015 3:30 PM CDT 10/13/2015 6:21 PM CDT Narrative Resulting Agency Comment [facility] [address] ??[place] [phone] Isidro Heredia MD LAB - CHEMISTRY ORD ERABLES Performing Organization Address [facility] Co de Phone Number [facility] INSURANCE BILL [address] [place] [address] * SED RATE AUTO (ESR) (10/13/2015 3:30 PM CDT) Erythrocyte Sedimentation Rate Westergren 6 0 - 20 mm/hr [facility] INSURANCE BILL Blood specimen (specimen) BLOOD SPECIMEN / Unknown 10/13/2015 3:30 PM CDT 10/13/2015 6:21 PM CDT Narrative Resulting Agency Comment [facility] [address] ??[place]iy[place] [phone] Isidro Heredia MD LAB - HEMATOLOGY OR DERABLES Performing Organization Address [facility] de Phone Number [facility] INSURANCE BILL [address] [place] [address] * TSH (10/13/2015 3:30 PM CDT) TSH 1.06 0.358 - 3.740 uIU/mL [facility] INSURANCE BILL Blood specimen (specimen) BLOOD SPECIMEN / Unknown 10/13/2015 3:30 PM CDT 10/13/2015 6:21 PM CDT Narrative Resulting Agency Comment [facility] [address] ??[place] [phone] Isidro Heredia MD LAB - CHEMISTRY ORD ERABLES Performing Organization Address [facility]/ZIP Co de Phone Number [facility] INSURANCE BILL [address] [place] [address] * (ABNORMAL) LIPID PROFILE W TCHOL/HDL (PO REF LAB) (10/13/2015 3:30 PM CDT) Cholesterol 218(H) <200 mg/dL [facility] INSURANCE BILL Triglycerides 287(H) <150 mg/dL [facility] INSURANCE BILL HDL Cholesterol 51 >40 mg/dL [facility] INSURANCE BILL VLDL Calculated 57(H) <=30 mg/dL [facility] INSURANCE BILL LDL Calculated 110 <130 mg/dL [facility] INSURANCE BILL Comment:LDL/HDL RATIO BLOOD (SSM) 2.1 <5.0 Cholesterol/HDL Ratio 4.3 <4.5 [facility] INSURANCE BILL Blood specimen (specimen) BLOOD SPECIMEN / Unknown 10/13/2015 3:30 PM CDT 10/13/2015 6:21 PM CDT Narrative Resulting Agency Comment [facility] [address] [facility] ??[place] [phone] Isidro Heredia MD LAB - CHEMISTRY ORD ERABLES [facility] INSURANCE BILL [address] [place] [address] * (ABNORMAL) COMPREHENSIVE METABOLIC PANEL (10/13/2015 3:30 PM CDT) Glucose 122(H) 74 - 106 mg/dL [facility] INSURANCE BILL BUN 18 7 - 21 mg/dL [facility] INSURANCE BILL Creatinine 1.10 0.50 - 1.30 mg/dL [facility] INSURANCE BILL eGFR by MDRD >60 >60 mL/min/1.7 3m2 [facility] INSURANCE BILL eGFR by MDRD >60 >60 mL/min/1.7 3m2 [facility] INSURANCE BILL Sodium 142 136 - 145 mmol/L [facility] INSURANCE BILL Potassium 4.2 3.5 - 5.1 mmol/L [facility] INSURANCE BILL Chloride 108(H) 98 - 107 mmol/L [facility] INSURANCE BILL CO2 24 22 - 31 mmol/L [facility] INSURANCE BILL Calcium 8.9 8.5 - 10.1 mg/dL [facility] INSURANCE BILL Protein Total 6.6 6.4 - 8.2 gm/dL [facility] INSURANCE BILL Albumin 4.1 3.4 - 5.0 gm/dL [facility] INSURANCE BILL Bilirubin Total 0.8 0.2 - 1.0 mg/dL [facility] INSURANCE BILL Alkaline Phosphatase 43 38 - 126 U/L [facility] INSURANCE BILL AST 20 5 - 40 U/L [facility] INSURANCE BILL ALT 26 12 - 78 U/L [facility] INSURANCE BILL Blood specimen (specimen) BLOOD SPECIMEN / Unknown 10/13/2015 3:30 PM CDT 10/13/2015 6:21 PM CDT Narrative Resulting Agency Comment [facility] [address] ??[place] [phone] Isidro Heredia MD LAB - CHEMISTRY ORD ERABLES [facility] INSURANCE BILL [address] [place] [address] * (ABNORMAL) CBC W AUTO DIFFERENTIAL (10/13/2015 3:30 PM CDT) WBC 7.7 4.4 - 10.7 x10E9/L [facility] INSURANCE BILL RBC 4.10 3.80 - 5.40 x10E12/L [facility] INSURANCE BILL Hemoglobin 12.9 12.0 - 17.6 gm/dL [facility] INSURANCE BILL Hematocrit 40.1 35.2 - 51.7 % [facility] INSURANCE BILL MCV 97.8 80.7 - 98.3 fL [facility] INSURANCE BILL MCH 31.5 26.7 - 34.0 pg [facility] INSURANCE BILL MCHC 32.2 30.8 - 35.9 gm/dL [facility] INSURANCE BILL RDW 14.2 12.1 - 14.9 % [facility] INSURANCE BILL Platelet Count 149(L) 153 - 416 x10E9/L [facility] INSURANCE BILL Comment:MPV FL BLOOD (SSM) 1 2.7 fl 9.4-12.9 Granulocytes % 72.8 44.0 - 73.0 % [facility] INSURANCE BILL Lymphocytes % 21.6 20.0 - 43.0 % [facility] INSURANCE BILL Monocytes % 4.3(L) 5.0 - 13.0 % [facility] INSURANCE BILL Eosinophils % 0.5 0.0 - 6.0 % [facility] INSURANCE BILL Basophils % 0.4 0.0 - 2.0 % [facility] INSURANCE BILL Granulocytes Absolute 5.63 2.01 - 7.14 x10E9/L [facility] INSURANCE BILL Lymphocytes Absolute 1.67 1.07 - 3.94 x10E9/L [facility] INSURANCE BILL Monocytes Absolute 0.33 0.26 - 1.07 x10E9/L [facility] INSURANCE BILL Eosinophils Absolute 0.04 0 - 0.47 x10E9/L [facility] INSURANCE BILL Basophils Absolute 0.03 0 - 0.08 x10E9/L [facility] INSURANCE BILL Immature Granulocytes 0.4 0 - 1 % [facility] INSURANCE BILL Immature Granulocytes Absolute 0.03 0.00 - 0.06 x10E9/L [facility] INSURANCE BILL nRBC 0 /100 WBC [facility] INSURANCE BILL Blood specimen (specimen) BLOOD SPECIMEN / Unknown 10/13/2015 3:30 PM CDT 10/13/2015 6:21 PM CDT Narrative Resulting Agency Comment [facility] [address] [facility] ??[facility] [phone] Isidro Heredia MD LAB - HEMATOLOGY OR DERABLES [facility] INSURANCE BILL [address] [place] [address] documented in this encounter Visit Diagnoses Diagnosis Encounter for long-term (current) use of medications- Primary Encounter for long-term (current) use of other medications Rheumatoid arthritis of multiple sites with negative rheumatoid factor (HCC) Chronic right-sided low back pain with right-sided sciatica Chronic pain syndrome Right lumbar radiculopathy Thoracic or lumbosacral neuritis or radiculitis, unspecified Rheumatoid arthritis of multiple 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 factor (HCC) Rheumatoid arthritis Hypothyroidism due to acquired atrophy of thyroid documented in this encounter Care Teams College Athletic Director Relationship Specialty Start Date End Date Tomas Hyman MD [address] [facility] [address] [place] [address] PCP - General Family Medicine 12/31/13 05/09/18 Isidro Heredia MD Rheumatology 02/09/11 documented as of this encounter
--- OUTSIDE RECORDS SUMMARY | 2024-05-03 04:10 | XMS_ITS | Encounter Summary ---
Author Organization [facility] Address [address] [facility] [place] [address] Care Team Providers Care Family Resource Management Professor Name Role Phone Isidro Heredia MD Unavailable Tomas Hyman MD Primary Care Provider [phone] Reason for Visit * Treatment (Routine) - Closed Specialty Diagnoses / Procedures Referred By Lawrence shah Referred To Contact Infusion Therapy Nurse Diagnoses Rheumatoid arthritis without rheumatoid factor, multiple sites (HCC) Procedures RI INJECTION TOCILIZUMAB 1 MG Isidro Heredia MD [address] [place] [address] [address] Referral ID Status Reason Start Date Expiration Date Visits Re quested Visits Authorized [id number] Closed 12/16/2015 06/07/2016 1 6 Encounter Details Date Type Department Care Team (Late st Contact Info) Description 02/23/2016 1:23 PM CDT - 02/23/2016 11:59 PM CDT Hospital Encounter [facility] - Rheumatology [address] [place] [address] Isidro Heredia MD [address] [place] [address] Discharge Disposition: Home or Self [...] Sign Reading Time Taken Comments Blood Pressure 153/85 02/23/2016 1:33 PM CDT Pulse 77 02/23/2016 1:33 PM CDT Temperature 36.7 ??C (98 ??F) 02/23/2016 1:33 PM CDT Respiratory Rate 16 02/23/2016 1:33 PM CDT Oxygen Saturation - - Inhaled Oxygen Concentration - - Weight 112.5 kg (248 lb) 02/23/2016 1:33 PM CDT Height - - Body Mass Index 35.58 01/11/2016 3:12 PM CDT documented in this encounter Discharge Instructions * Discharge Instructions* Jody Sahu RN - 02/23/2016 2:03 PM CDT [facility] Infusion instructions You have received [...] Sunday through Sunday-5 call the office at [phone] After hours or on the weekend call the exchange at [phone] If you have had lab work done [...] 1 (one) tablet by mouth at bedtime Vhyduscuatt-Brjpxuvbd-V it C-Mn (GLUCOSAMINE CHONDR 1500 COMPLX PO) [...] Progress Notes * Jody Sahu RN - 02/23/2016 1:58 PM CDT JOSE Chalino Deng [id number] 02/23/2016 Diagnosis: Rheumatoid arthritis without rheumatoid factor, multiple sites [M06.09]. Pt denies symptoms of infection or antibiotic use, no open wounds, or recent surgery, or plans for surgery in the next couple of weeks. Pt is aware that we use the 0-10 pain scale to assess discomfort. 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 vest front presser pt signs consent for treatment for this infusion. BP 153/85 Pulse 77 Temp 98 ??F Resp 16 Wt 112.5 kg (248 lb) BMI 35.58 [...] st Contact Info) Description 06/03/2024 1:00 PM BRIDGE IRONWORKER HELPER Appointment [facility] - Rheumatology [address] [place] [address] 06/03/2024 2:00 PM BRIDGE IRONWORKER HELPER Office Visit [facility] - Rheumatology [address] [place] [address] Gloria Smith MD [address] [place] [phone] documented as of this encounter Visit Diagnoses Diagnosis Rheumatoid arthritis of multiple sites with negative rheumatoid factor (HCC) documented in this encounter Administered Medications Inactive Administered Medications - up to 3 most recent administrations Medication Order MAR Action Action Date Dose Rate Site Tocilizumab 800 mg in 0.9% NaCl 100 mL IVPB 800 mg, Intravenous, ONCE, 1 dose, On Sun02/23/16 at 1400, 2 vials Actemra 400mg 0 waste. Stable 24hrs RT $ Given 02/23/2016 1:50 PM CDT 800 mg documented in this encounter Care Teams Family Resource Management Professor Relationship Specialty Start Date End Date Tomas Hyman MD [address] [facility] [address] [place] [address] PCP - General Family Medicine 12/31/13 05/09/18 Isidro Heredia MD Rheumatology 02/09/11 documented as of this encounter
--- OUTSIDE RECORDS SUMMARY | 2024-05-03 04:10 | XMS_ITS | Encounter Summary ---
Author Organization [facility] Address [address] [place] [address] Care Team Providers Care Gas Controller Name Role Phone Isidro Heredia MD Unavailable [phone] Tomas Hyman MD Primary Care Provider [phone] Reason for Visit * Reason Comments Narcotic Refill percocet * Evaluate & Treat (Routine) - Closed Specialty Diagnoses / Procedures Referred By Contsarahi t Referred To Contact Diagnoses Rheumatoid arthritis, unspecified (HCC) Procedures MD OFFICE VISIT DURING HOURS Tomas Hyman MD [address] [place] [address] Isidro Heredia MD [address] [place] [address] Referral ID Status Reason Start Date Expiration Date Visits Re quested Visits Authorized [id number] Closed 06/15/2016 06/15/2017 6 6 Encounter Details Date Type Department Care Team (Late st Contact Info) Description 08/24/2016 2:00 PM CDT Office Visit [facility] - Rheumatology [address] [place] [address] Isidro Heredia MD [address] [place] [address] Abnormal LFTs (Primary Dx); Chronic right-sided [...] as of this encounter Progress Notes * Isidro Heredia MD - 08/24/2016 2:31 PM CDT Subjective: Chalino Deng 55 y.o. male is here for Chief Complaint Patient presents with ??? Narcotic Refill percocet HPI: On mtx actemra a for ra and percocet neurontin and skelaxin for chronic pain Pain Level 6/10 Hands Knees Lower back Am stiffness 1 hr Global 7/10 Fatigue yes Medication Side Effects no Current Outpatient Prescriptions on File Prior to Visit Medication Sig Dispense Refill ??? alendronate (FOSAMAX) 70 MG tablet TAKE 1 TABLET EVERY 7 DAYS BEFORE A MEAL IN MORNING WITH FULL GLASS OF WATER ON AN EMPTY STOMACH AND REMAIN UPRIGHT FOR 30 MINUTES 12 Tab 2 ??? carvedilol (COREG) 12.5 MG tablet [...] mouth once daily 90 Tab 3 ??? naproxen (NAPROSYN) 500 MG tablet TAKE 1 TABLET TWICE A DAY 180 Tab 2 ??? Magnesium Citrate 100 MG TABS Take 1 Tab by mouth once daily ??? Multiple Vitamins-Minerals (OCUVITE PO) Take 1 Tab by mouth once daily ??? Multiple Vitamin (MULTI-VITAMIN PO) Take 1 Tab by mouth once daily ??? Gknypfpkxrh-Gpyiylrua-Fhx C-Mn (GLUCOSAMINE CHONDR 1500 COMPLX PO) Take [...] Heart lungs Objective: General Appearance Physical Exam: There were no vitals taken for this visit. Head: perrla, eyes no irritation, vision and [...] 8/TJ, 4/SJ, 0/muscle tenderness or weakness RLE: 1/TJ, 1/SJ, 0/muscle tenderness or weakness LLE: 1/TJ, 1/SJ, 0/muscle tenderness or weakness Assessment: Encounter Diagnoses Name Primary? Abnormal LFTs Yes ??? Chronic right-sided low back pain with right-sided sciatica ??? Rheumatoid arthritis of multiple sites with negative rheumatoid factor ??? Chronic pain syndrome poorly controlled ra chronic pain and lbp [...] st Contact Info) Description 06/03/2024 1:00 PM ROTARY SHEAR CUTTER Appointment [facility] - Rheumatology [address] [place] [address] 06/03/2024 2:00 PM ROTARY SHEAR CUTTER Office Visit [facility] - Rheumatology [address] [place] [address] Gloria Smith MD [address] [place] [place] [phone] documented as of this encounter Visit Diagnoses Diagnosis Abnormal LFTs- Primary Other abnormal blood chemistry Chronic right-sided low back pain with right-sided sciatica Rheumatoid arthritis of multiple sites with negative rheumatoid factor (HCC) Chronic pain syndrome documented in this encounter Care Teams Gas Controller Relationship Specialty Start Date End Date Tomas Hyman MD [address] [facility] [address] [place] [address] PCP - General Family Medicine 12/31/13 05/09/18 Isidro Heredia MD Rheumatology 02/09/11 documented as of this encounter
--- OUTSIDE RECORDS SUMMARY | 2024-05-03 04:10 | XMS_ITS | Encounter Summary ---
Author Organization [facility] Address [address] [facility] [place] [address] Care Team Providers Care Construction Site Crossing Guard Name Role Phone Isidro Heredia MD Unavailable [phone] Tomas Hyman MD Primary Care Provider [phone] Encounter Details Date Type Department Care Team (Late st Contact Info) Description 05/04/2016 Orders Only [facility] Medical [facility] - Rheumatology [address] [place] [address] [phone] Isidro Heredia MD [address] [place] [address] Rheumatoid arthritis of multiple sites with [...] Progress Notes * Yamileth Rodríguez MA - 05/16/2016 8:26 AM CST Message sent via my chart regarding lab results RUCTOR PRIVATE * Isidro Heredia MD - 05/12/2016 6:12 PM CST Wbc 12.4 sl high mtx ok Chol very Good [address] RUCTOR PRIVATE documented in this encounter Plan of Treatment Upcoming Encounters Date Type Department Care Team (Late st Contact Info) Description 06/03/2024 1:00 PM INSTRUCTOR PRIVATE Appointment [facility] - Rheumatology [address] [place] [address] 06/03/2024 2:00 PM INSTRUCTOR PRIVATE Office Visit [facility] - Rheumatology [address] [place] [address] Gloria Smith MD [address] [place] [phone] documented as of this encounter Procedures Procedure Name Priority Date/Time Associated Diagnosis Comments LIPID PROFILE W TCHOL/HDL Routine 05/04/2016 1:30 AM INSTRUCTOR PRIVATE Rheumatoid arthritis of multiple sites with negative rheumatoid factor (HCC) ERYTHROCYTE SEDIMENTATION RATE Routine 05/04/2016 1:30 AM INSTRUCTOR PRIVATE Rheumatoid arthritis of multiple sites with negative rheumatoid factor (HCC) CBC W AUTO DIFFERENTIAL Routine 05/04/2016 1:30 AM INSTRUCTOR PRIVATE Rheumatoid arthritis of multiple sites with negative rheumatoid factor (HCC) COMPREHENSIVE METABOLIC PANEL Routine 05/04/2016 1:30 AM INSTRUCTOR PRIVATE Rheumatoid arthritis of multiple sites with negative rheumatoid factor (HCC) documented in this encounter Results * SED RATE WESTERGREN (05/04/2016 1:30 AM INSTRUCTOR PRIVATE) Erythrocyte Sedimentation Rate Westergren 3 0 - 30 mm/hr [facility] INSURANCE BILL Blood BLOOD SPECIMEN / Unknown 05/04/2016 1:30 AM INSTRUCTOR PRIVATE 05/04/2016 Narrative Resulting Agency Comment [facility] [address] ??[facility] [phone] Isidro Heredia MD LAB - HEMATOLOGY OR DERABLES [facility] INSURANCE BILL [address] [place] [address] * (ABNORMAL) LIPID PROFILE W TCHOL/HDL (PO REF LAB) (05/04/2016 1:30 AM INSTRUCTOR PRIVATE) Cholesterol 129 100 - 199 mg/dL [facility] INSURANCE BILL Triglycerides 214(H) 0 - 149 mg/dL [facility] INSURANCE BILL HDL Cholesterol 51 >39 mg/dL [facility] INSURANCE BILL VLDL Calculated 43(H) 5 - 40 mg/dL [facility] INSURANCE BILL LDL Calculated 35 0 - 99 mg/dL [facility] INSURANCE BILL Comment NOT NEEDED [facility] INSURANCE BILL Comment:Ancillary determined the test is not needed Cholesterol/HDL Ratio 2.5 0.0 - 5.0 ratio units [facility] INSURANCE BILL Comment: ? T. Chol/HDL Ratio ? Men ??Women ? 1/2 Avg.Risk ??3.4 ?3.3 ? Avg.Risk ??5.0 ?4.4 ?2X Avg.Risk ??9.6 ?7.1 ?3X Avg.Risk 23.4 ?? 11.0 Blood BLOOD SPECIMEN / Unknown 05/04/2016 1:30 AM INSTRUCTOR PRIVATE 05/04/2016 Narrative Resulting Agency Comment [facility] [address] ??[facility] [phone] Isidro Heredia MD LAB - CHEMISTRY ORD ERABLES [facility] INSURANCE BILL [address] [place] [address] * (ABNORMAL) COMPREHENSIVE METABOLIC PANEL (05/04/2016 1:30 AM INSTRUCTOR PRIVATE) Glucose 97 65 - 99 mg/dL [facility] INSURANCE BILL BUN 20 6 - 24 mg/dL [facility] INSURANCE BILL Creatinine 0.84 0.76 - 1.27 mg/dL [facility] INSURANCE BILL eGFR by MDRD 100 >59 mL/min/1.7 3 [facility] INSURANCE BILL eGFR by MDRD 116 >59 mL/min/1.7 3 [facility] INSURANCE BILL BUN/Creatinine Ratio 24(H) 9 - 20 [facility] INSURANCE BILL Sodium 143 134 - 144 mmol/L [facility] INSURANCE BILL Potassium 4.6 3.5 - 5.2 mmol/L [facility] INSURANCE BILL Chloride 107(H) 96 - 106 mmol/L [facility] INSURANCE BILL CO2 19 18 - 29 mmol/L [facility] INSURANCE BILL Calcium 9.1 8.7 - 10.2 mg/dL [facility] INSURANCE BILL Protein Total 6.4 6.0 - 8.5 g/dL [facility] INSURANCE BILL Albumin 4.2 3.5 - 5.5 g/dL [facility] INSURANCE BILL Globulin Total 2.2 1.5 - 4.5 g/dL [facility] INSURANCE BILL Albumin/Globulin Ratio 1.9 1.1 - 2.5 [facility] INSURANCE BILL Bilirubin Total 0.4 0.0 - 1.2 mg/dL [facility] INSURANCE BILL Alkaline Phosphatase 51 39 - 117 IU/L [facility] INSURANCE BILL AST 24 0 - 40 IU/L [facility] INSURANCE BILL ALT 40 0 - 44 IU/L [facility] INSURANCE BILL Blood BLOOD SPECIMEN / Unknown 05/04/2016 1:30 AM INSTRUCTOR PRIVATE 05/04/2016 Narrative Resulting Agency Comment [facility] [address] ??[facility] [phone] Isidro Heredia MD LAB - CHEMISTRY ORD ERABLES [facility] INSURANCE BILL [address] [place] [address] * (ABNORMAL) CBC W AUTO DIFFERENTIAL (05/04/2016 1:30 AM INSTRUCTOR PRIVATE) WBC 12.4(H) 3.4 - 10.8 x10E3/uL [facility] INSURANCE BILL RBC 4.04(L) 4.14 - 5.80 x10E6/uL [facility] INSURANCE BILL Hemoglobin 12.7 12.6 - 17.7 g/dL [facility] INSURANCE BILL Hematocrit 38.1 37.5 - 51.0 % [facility] INSURANCE BILL MCV 94 79 - 97 fL [facility] INSURANCE BILL MCH 31.4 26.6 - 33.0 pg [facility] INSURANCE BILL MCHC 33.3 31.5 - 35.7 g/dL [facility] INSURANCE BILL RDW 14.3 12.3 - 15.4 % [facility] INSURANCE BILL Platelet Count 218 150 - 379 x10E3/uL [facility] INSURANCE BILL Granulocytes % 69 % [facility] INSURANCE BILL Lymphocytes % 23 % [facility] INSURANCE B[facility] Monocytes % 6 % [facility] INSURANCE BILL Eosinophils % 2 % [facility] INSURANCE BILL Basophils % 0 % [facility] INSURANCE BILL Immature Cells NOT NEEDED [facility] INSURANCE BILL Comment:Ancillary determined the test is not needed Granulocytes Absolute 8.5(H) 1.4 - 7.0 x10E3/uL [facility] INSURANCE BILL Lymphocytes Absolute 2.9 0.7 - 3.1 x10E3/uL [facility] INSURANCE BILL [...] not needed Blood BLOOD SPECIMEN / Unknown 05/04/2016 1:30 AM INSTRUCTOR PRIVATE 05/04/2016 Narrative Resulting Agency Comment [facility] [address] ??[facility] [phone] Isidro Heredia MD LAB - HEMATOLOGY OR DERABLES [facility] INSURANCE BILL [address] [place] [address] documented in this encounter Visit Diagnoses Diagnosis Rheumatoid arthritis of multiple sites with negative rheumatoid factor (HCC)- Primary documented in this encounter Care Teams Construction Site Crossing Guard Relationship Specialty Start Date End Date Tomas Hyman MD [address] [facility] [address] [place] [address] PCP - General Family Medicine 12/31/13 05/09/18 Isidro Heredia MD Rheumatology 02/09/11 documented as of this encounter
--- OUTSIDE RECORDS SUMMARY | 2024-05-03 04:10 | XMS_ITS | Encounter Summary ---
Author Organization [facility] Address [address] [facility] [place] [address] Care Team Providers Care Supervisor Cell Maintenance Name Role Phone Isidro Heredia MD Unavailable [phone] Tomas Hyman MD Primary Care Provider [phone] Reason for Visit * Treatment (Routine) - Closed Specialty Diagnoses / Procedures Referred By Lawrence shah Referred To Contact Infusion Therapy Nurse Diagnoses Rheumatoid arthritis(714.0) (HCC) Rheumatoid arthritis without rheumatoid factor, multiple sites (HCC) Procedures [place] INFLIXIMAB INJECTION [place] INJECTION TOCILIZUMAB 1 MG Isidro Heredia MD [address] [place] [address] [address] Referral ID Status Reason Start Date Expiration Date Visits Re quested Visits Authorized [id number] Closed 01/07/2015 01/08/2016 1 12 Encounter Details Date Type Department Care Team (Late st Contact Info) Description 11/16/2015 1:50 PM CDT - 11/16/2015 11:59 PM CDT Hospital Encounter [facility] Medical [facility] - Rheumatology [address] [place] [address] Isidro Heredia MD [address] [place] [address] Discharge Disposition: Home or Self [...] Sign Reading Time Taken Comments Blood Pressure 144/91 11/16/2015 2:03 PM CDT Pulse 90 11/16/2015 2:03 PM CDT Temperature 36.7 ??C (98 ??F) 11/16/2015 2:03 PM CDT Respiratory Rate 16 11/16/2015 2:03 PM CDT Oxygen Saturation - - Inhaled Oxygen Concentration - - Weight 111.1 kg (245 lb) 11/16/2015 2:03 PM CDT Height - - Body Mass Index 35.15 10/13/2015 3:55 PM CDT documented in this encounter Discharge Instructions * Discharge Instructions* Jody Sahu RN - 11/16/2015 2:13 PM CDT [place] Rheumatology Post Infusion instructions You have [...] they should not be ignored. Sunday through Sunday- call the office at [phone] After hours or on the weekend call the exchange at [phone] If you have had lab work done [...] 1 (one) tablet by mouth at bedtime Cqgozyqmwdr-Chcbjremu-K it C-Mn (GLUCOSAMINE CHONDR 1500 COMPLX PO) [...] Pain Dx: 714.0 RA 120 Tab 0 11/16/2015 12/13/2015 predniSONE (DELTASONE) 10 MG tablet TAKE 1 TABLET TWICE A DAY 180 Tab 2 09/24/2015 06/19/2016 SKELAXIN 800 MG tablet TAKE 1 TABLET THREE TIMES A DAY 270 Tab 0 11/15/2015 03/02/2016 triamcinolone acetonide (KENALOG) injection 2 mL by Intra-articular route once for 1 dose 2 mL 0 11/17/2015 11/17/2015 documented as of this encounter Progress Notes * Jody Sahu RN - 11/16/2015 2:32 PM CDT JOSE Deng [id number] 11/16/2015 Diagnosis: Rheumatoid arthritis without rheumatoid factor, multiple sites [M06.09]. Pt denies symptoms of infection or antibiotic use, no open wounds, or recent surgery, or plans for surgery in the next couple of weeks. Pt is aware that we use the 0-10 pain scale to assess discomfort. 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 front office medical assistant pt signs consent for treatment for this infusion. BP 144/91 mmHg Pulse 90 Temp(Src) 98 ??F Resp 16 Wt 111.131 kg (245 [...] st Contact Info) Description 06/03/2024 1:00 PM BLADE BENDER FURNACE TENDER Appointment [facility] - Rheumatology [address] [place] [address] 06/03/2024 2:00 PM BLADE BENDER FURNACE TENDER Office Visit [facility] - Rheumatology [address] [place] [address] Gloria Smith MD [address] [place] [phone] documented as of this encounter Visit Diagnoses Diagnosis Rheumatoid arthritis of multiple sites with negative rheumatoid factor (HCC) documented in this encounter Administered Medications Inactive Administered Medications - up to 3 most recent administrations Medication Order MAR Action Action Date Dose Rate Site Tocilizumab 800 mg in 0.9% NaCl IVPB 800 mg, at 100 mL/hr, Intravenous, ONCE, 1 dose, On Sun11/16/15 at 1430, 2 vials Actemra 400mg 0 waste. Stable 24hrs RT $ Given 11/16/2015 2:20 PM CDT 800 mg 100 mL/hr documented in this encounter Care Teams Supervisor Cell Maintenance Relationship Specialty Start Date End Date Tomas Hyman MD [address] [facility] [address] [place] [address] PCP - General Family Medicine 12/31/13 05/09/18 Isidro Heredia MD Rheumatology 02/09/11 documented as of this encounter
--- OUTSIDE RECORDS SUMMARY | 2024-05-03 04:10 | XMS_ITS | Encounter Summary ---
Author Organization [facility] Address [address] [place] [address] Care Team Providers Care Tape Machine Tailer Name Role Phone Isidro Heredia MD Unavailable [phone] Tomas Hyman MD Primary Care Provider [phone] Reason for Visit * Treatment (Routine) - Closed Specialty Diagnoses / Procedures Referred By Lawrence shah Referred To Contact Infusion Therapy Nurse Diagnoses Rheumatoid arthritis without rheumatoid factor, multiple sites (HCC) Procedures MD INJECTION TOCILIZUMAB 1 MG Isidro Heredia MD [address] [facility] [place] [address] [address] Referral ID Status Reason Start Date Expiration Date Visits Re quested Visits Authorized [id number] Closed 06/26/2016 07/28/2016 1 6 Encounter Details Date Type Department Care Team (Late st Contact Info) Description 07/27/2016 1:00 PM CDT - 07/27/2016 11:59 PM CDT Hospital Encounter [facility] Medical [facility] - Rheumatology [address] [place] [address] Isidro Heredia MD [address] [facility] [place] [address] Discharge Disposition: Home or Self [...] Sign Reading Time Taken Comments Blood Pressure 168/75 07/27/2016 1:15 PM CDT Pulse 75 07/27/2016 1:15 PM CDT Temperature 36.6 ??C (97.8 ??F) 07/27/2016 1:15 PM CD T Respiratory Rate 16 07/27/2016 1:15 PM CDT Oxygen Saturation - - Inhaled Oxygen Concentration - - Weight 118.4 kg (261 lb) 07/27/2016 1:15 PM CDT Height - - Body Mass Index 37.45 01/11/2016 3:12 PM CDT documented in this encounter Discharge Instructions * Discharge Instructions* Jody Sahu RN - 07/27/2016 1:21 PM CDT [place] Rheumatology Post Infusion instructions You have received [...] Sunday through 01-02 call the office at [phone] After hours or on the weekend call the exchange at [phone] If you have had lab work done [...] chosen [facility] as your provider. Jody aShu RN documented in this encounter Medications at Time of Discharge Medication Sig Dispensed Refills Start Date End Date atorvastatin (LIPITOR) 40 MG tablet Take 1 (one) tablet by mouth at bedtime Kexcwjltajh-Tsrnrbrfy-F it C-Mn (GLUCOSAMINE CHONDR 1500 COMPLX PO) [...] WITH MORNING AND EVENING MEALS 120 Tab 07/20/2016 09/19/2016 gabapentin (NEURONTIN) 300 MG capsule TAKE 1 [...] for Pain Dx: 714.0 RA 120 Tab 07/27/2016 08/24/2016 predniSONE (DELTASONE) 10 MG tablet TAKE 1 TABLET TWICE A DAY 180 Tab 1 06/19/2016 12/16/2016 documented as of this encounter Progress Notes * Jody Sahu RN - 07/27/2016 1:36 PM CDT JOSE Deng [id number] 07/27/2016 Diagnosis: Rheumatoid arthritis without rheumatoid factor, multiple sites [M06.09]. Pt denies symptoms of infection or antibiotic use, no open wounds, or recent surgery, or plans for surgery in the next couple of weeks. Pt is aware that we use the 0-10 pain scale to assess discomfort. 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 front tender pt signs consent for treatment for this infusion. BP 168/75 Pulse 75 Temp 97.8 ??F Resp 16 Wt 118.4 kg (261 lb) BMI 37.45 kg/m2 @ MEDICATIONS FOR CURRENT ENCOUNTER: ?? [...] st Contact Info) Description 06/03/2024 1:00 PM GYN PHYSICIAN Appointment [facility] - Rheumatology [address] [place] [address] 06/03/2024 2:00 PM GYN PHYSICIAN Office Visit [facility] - Rheumatology [address] [place] [address] Gloria Smith MD [address] [place] [phone] documented as of this encounter Visit Diagnoses Diagnosis Rheumatoid arthritis of multiple sites with negative rheumatoid factor (HCC) documented in this encounter Administered Medications Inactive Administered Medications - up to 3 most recent administrations Medication Order MAR Action Action Date Dose Rate Site Tocilizumab 800 mg in 0.9% NaCl 100 mL IVPB 800 mg, Intravenous, ONCE, 1 dose, On Gabriela 07/27/16 at 1330, Stable 24hrs RT $ Given 07/27/2016 1:30 PM CDT 800 mg documented in this encounter Care Teams Tape Machine Tailer Relationship Specialty Start Date End Date Tomas Hyman MD [address] [place] [address] PCP - General Family Medicine 12/31/13 05/09/18 Isidro Heredia MD Rheumatology 02/09/11 documented as of this encounter
--- OUTSIDE RECORDS SUMMARY | 2024-05-03 04:10 | XMS_ITS | Encounter Summary ---
Author Organization [facility] Address [address] [facility] [place] [address] Care Team Providers Care Manager Zone Name Role Phone Isidro Heredia MD Unavailable [phone] Tomas Hyman MD Primary Care Provider [phone] Reason for Visit * Reason Comments Refill Request Encounter Details Date Type Department Care Team (Late Contact Info) Description 07/07/2016 Refill [facility] - Rheumatology [address] [place] [address] Isidro Heredia MD [address] [place] [address] Refill Request Social History Tobacco Use [...] (Late Contact Info) Description 06/03/2024 1:00 PM PRINT SHOP ASSISTANT Appointment [facility] - Rheumatology [address] [place] [address] 06/03/2024 2:00 PM PRINT SHOP ASSISTANT Office Visit [facility] Rheumatology [address] [place] [address] Gloria Smith MD [address] [place], [place] [address], [place] [address] documented as of this encounter Visit Diagnoses Not on filedocumented in this encounter Care Teams Manager Zone Relationship Specialty Start Date End Date Tomas Hyman MD [address] [place] [address] PCP - General Family Medicine 12/31/13 05/09/18 Isidro Heredia MD Rheumatology 02/09/11 documented as of this encounter
--- OUTSIDE RECORDS SUMMARY | 2024-05-03 04:10 | XMS_ITS | Encounter Summary ---
Author Organization [facility] Address [address] [facility] [place] [address] Care Team Providers Care Mobile Architect Name Role Phone Isidro Heredia MD Unavailable [phone] Tomas Hyman MD Primary Care Provider [phone] Encounter Details Date Type Department Care Team (Latest Contact Info) Description 09/07/2015 9:54 AM CDT - 09/07/2015 11:59 PM CDT Hospital Encounter [facility] Pain Care [address] [place] [address] [place] [address] [place] [address] Discharge Disposition: Home or Self Care Social [...] Sign Reading Time Taken Comments Blood Pressure 134/83 09/07/2015 10:37 AM CDT Pulse 82 09/07/2015 10:37 AM CDT Temperature - - Respiratory Rate 16 09/07/2015 10:37 AM CDT Oxygen Saturation 96% 09/07/2015 10:37 AM CDT Inhaled Oxygen Concentration - - Weight - - Height - - Body Mass Index - - documented in this encounter Discharge Instructions * Patient Instructions* Nena Pond RN - 09/07/2015 10:19 AM CDT [facility] Procedure Center Pain Discharge Instructions [...] headache, or any other problems, please call [phone] or after hours callDr. Mirza at [phone] and tell them your physician's name. The exchange will alert the physician horizontal boring mill set up operator. If sedation is given: No sedation given. For Your Next Visit: No additional instructions. Other Instructions: May remove band-aid in 12 Hours. Return in one week for KIMBERLEY #2 documented in this encounter Medications at Time of Discharge Medication Sig Dispensed Refills Start Date End Date Wcjpvublkfd-Vxxmynfic-E it C-Mn (GLUCOSAMINE CHONDR 1500 COMPLX PO) [...] Progress Notes * Alejandro Mirza MD - 09/07/2015 10:54 AM CDT History and physical completed on 09/06/2015. Was reviewed today and no changes noted. * Alejandro Mirza MD - 09/07/2015 10:38 AM CDT History and physical completed on 09/03/15 Was reviewed today and no changes noted. documented in this encounter Procedure Notes * Alejandro Mirza MD - 09/07/2015 10:40 AM CDTAssociated Order(s): PAIN MANAGEMENT PROCEDURE TIME Lumbar Epidural L5-S1 Patient Name: Chalino Deng Provider: Alejandro Mirza MD Date of : 1960 Date: 09/07/2015 PCP: Tomas Hyman MD Allergies: Allergies as of 09/07/2015 - reviewed 09/07/2015 Allergen Reaction Noted ??? Plaquenil [hydroxychloroquine sulfate] 05/15/2011 ??? Tuberculin ppd 07/27/2008 Pt. presents today for an injection. Procedure: Epidural injection L5-S1 Diagnosis/Indication:Low back and/or leg pain M51.16 Other conservative therapies and/or treatments provided inadequate [...] Coumadin, Plavix or other blood thinners. Responsible helper driver is not needed due to the [...] prior to the injection. 80 milligrams of Depomedrol and saline were injected into the epidural space. [...] st Contact Info) Description 06/03/2024 1:00 PM CHEF CONCIERGE Appointment [facility] - Rheumatology [address] [place] [phone] 06/03/2024 2:00 PM CHEF CONCIERGE Office Visit [facility] - Rheumatology [address] [place] [address] [phone] Gloria Smith MD [address] [place] [phone] documented as of this encounter Procedures Procedure Name Priority Date/Time Associated Diagnosis Comments PAIN MANAGEMENT PROCEDURE TIME Routine 09/07/2015 10:35 AM CDT Intervertebral disc disorder with radiculopathy of lumbar region Intervertebral disc disorder with radiculopathy of lumbosacral region Radiculopathy of lumbosacral region documented in this encounter Results * PAIN MANAGEMENT PROCEDURE TIME (09/07/2015 10:35 AM CDT) Anatomical Region Laterality Modality X-Ray Angiograph y Narrative 09/07/2015 10:40 AM CDT Alejandro Mirza MD ? 09/07/2015 10:40 AM Lumbar Epidural L5-S1 Patient Name: Chalino Deng ?Provider: Alejandro Mirza MD Date of : 1960 ?Date: 09/07/2015 PCP: Tomas Hyman MD Allergies: Allergies as of 09/07/2015 - reviewed 09/07/2015 Allergen Reaction Noted ? ? Plaquenil [hydroxychloroquine sulfate] ??05/15/2011 ? ? Tuberculin ppd ??07/27/2008 Pt. presents today for an injection. ? Procedure: Epidural injection L5-S1 ?? Diagnosis/Indication:Low back and/or leg pain M51.16 Other conservative therapies and/or treatments provided inadequate [...] Coumadin, Plavix or other blood thinners. ??Responsible helper driver is not needed due to the [...] prior to the injection. ??80 milligrams of Depomedrol and saline were injected into the epidural space. Complications: ??None Estimated Blood Loss: None The patient tolerated [...] Diagnosis Intervertebral disc disorder with radiculopathy of lumbar region Thoracic or lumbosacral neuritis or radiculitis, unspecified Intervertebral disc disorder with radiculopathy of lumbosacral region Thoracic or lumbosacral neuritis or radiculitis, unspecified Radiculopathy of lumbosacral region Thoracic or lumbosacral neuritis or radiculitis, unspecified documented in this encounter Administered Medications Inactive Administered Medications - up to 3 most recent administrations Medication Order MAR Action Action Date Dose Rate Site methylPREDNISolone acetate (DEPO-MEDROL) injection 80 mg 80 mg, Intramuscular, INTRA-PROCEDURE ONCE, 1 dose, On Sun09/07/15 at 1020 $ Admin. by Other Provider 09/07/2015 10:30 AM CDT 80 mg Back documented in this encounter Care Teams Mobile Architect Relationship Specialty Start Date End Date Tomas Hyman MD [address] [facility] [address] [place] [address] PCP - General Family Medicine 12/31/13 05/09/18 Isidro Heredia MD Rheumatology 02/09/11 documented as of this encounter
--- OUTSIDE RECORDS SUMMARY | 2024-05-03 04:10 | XMS_ITS | Encounter Summary ---
Author Organization [facility] Address [address] [place] [address] Care Team Providers Care Mine Administrator Supervisor Name Role Phone Isidro Heredia MD Unavailable Tomas Hyman MD Primary Care Provider Reason for Visit * Reason Comments Rheumatoid Arthritis Headache right side of head Shoulder Pain right woul like alexandria isone injection * Evaluate & Treat (Routine) - Closed Specialty Diagnoses / Procedures Referred By Lawrence t Referred To Contact Diagnoses Rheumatoid arthritis, unspecified (HCC) Procedures IN OFFICE VISIT DURING HOURS Tomas Hyman MD [address] [place] [address] Isidro Heredia MD [address] [place] [address] Referral ID Status Reason Start Date Expiration Date Visits Re quested Visits Authorized [id number] Closed 06/08/2015 06/07/2016 6 6 Encounter Details Date Type Department Care Team (Late st Contact Info) Description 11/16/2015 2:45 PM CDT Office Visit [facility] - Rheumatology [address] [place] [address] Isidro Heredia MD [address] [facility] [address] 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 male is here for Chief Complaint Patient presents with ??? Rheumatoid Arthritis ??? Headache right side of head ??? Shoulder Pain right woul like cortisone injection HPI: On actemra mtx pred 10 mg bid for ra And percocet neurontin skelaxin for chronic pain and lbp Pain Level 7/10 right shoulder hand knees Am stiffness 1 hr Global 9/10 Fatigue yes Medication Side Effects no Current Outpatient Prescriptions on File Prior to Visit Medication Sig Dispense Refill ??? SKELAXIN 800 MG tablet TAKE 1 [...] 1 Tab by mouth once daily ??? Xgmvkgqlmvp-Ourvbulzo-Xau C-Mn (GLUCOSAMINE CHONDR 1500 COMPLX PO) Take [...] lungs Objective: General Appearance Physical Exam: BP 144/91 mmHg Pulse 90 Wt 111.131 kg (245 lb) Head: perrla, eyes no irritation, vision and hearing intact, no oral ulcers, tongue normal, throat clear Neck:supple, no bruits, adenopathy Chest: clear, no rales, rhonchi or wheezes. Heart nsr. No S3,S4, or murmurs Abdomen:soft, no masses or tenderness, no organomegaly Genitalia, Groin, Buttocks: Back: no abnormal curvature, tenderness, or muscle spasm Extremities: No edema, cyanosis, or rash RUE: 12/TJ, 7/SJ, 0/muscle tenderness or weakness LUE: 11/TJ, 6/SJ, 0/muscle tenderness or weakness RLE: 1/TJ, 1/SJ, 0/muscle tenderness or weakness LLE: 1/TJ, 1/SJ, 0/muscle tenderness or weakness Painful abduction right shoulder Assessment: Encounter Diagnoses Name Primary? Chronic right-sided low back pain with right-sided sciatica Yes ??? Rheumatoid arthritis of multiple sites with negative rheumatoid factor ??? Chronic pain syndrome ??? Rheumatoid arthritis of multiple 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 factor poorly controlled ra chronic pain and tendonitis shoulder same meds and steroid shot See pcp for headaches Plan: Plan Orders Placed This Encounter ??? oxyCODONE-acetaminophen (PERCOCET) 5-325 MG tablet Sig: Take 1 Tab by mouth every 6 hours as needed for Pain Dx: 714.0 RA Dispense: 120 Tab Refill: 0 Under sterile condition, 2 cc's of tac with 1 cc 2% lidocaine were injected in the right triceps tendon. 0 cc's of synovial fluid were aspirated. Patient tolerated procedure well without complications. Follow up in office in 4 weeks documented in this encounter Plan of Treatment Upcoming Encounters Date Type Department Care Team (Late st Contact Info) Description 06/03/2024 1:00 PM SHAKE CUTTER Appointment [facility] - Rheumatology [address] [place], [place] [id number] 06/03/2024 2:00 PM SHAKE CUTTER Office Visit [facility] - Rheumatology [address] [place] [phone] Gloria Smith MD [address] [place] [phone] documented as of this encounter Visit Diagnoses Diagnosis Chronic right-sided low back pain with right-sided sciatica- Primary Rheumatoid arthritis of multiple sites with negative rheumatoid factor (HCC) Chronic pain syndrome Rheumatoid arthritis of multiple 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 factor (HCC) Rheumatoid arthritis Triceps tendonitis Other enthesopathy of elbow region documented in this encounter Administered Medications Administered Medications Medication Order MAR Action Action Date Dose Rate Site Triamcinolone Acetonide Intraarticular Given 11/16/2015 2 mL Right Shoulde r documented in this encounter Care Teams Mine Administrator Supervisor Relationship Specialty Start Date End Date Tomas Hyman MD [address] [place] [address] PCP - General Family Medicine 12/31/13 05/09/18 Isidro Heredia MD Rheumatology 02/09/11 documented as of this encounter
--- OUTSIDE RECORDS SUMMARY | 2024-05-03 04:10 | XMS_ITS | Encounter Summary ---
Author Organization [facility] Address [address] [facility] [place] [address] Care Team Providers Care Trauma Program Manager Name Role Phone Isidro Heredia MD Unavailable [phone] Tomas Hyman MD Primary Care Provider [phone] Reason for Visit * Reason Comments Rheumatoid Arthritis Encounter Details Date Type Department Care Team (Late st Contact Info) Description 06/01/2016 2:00 PM PBX REPAIRER Office Visit [facility] - Rheumatology [address] [place] [address] Isidro Heredia MD [address] [place] [address] Chronic right-sided low back pain with right-sided sciatica (Primary Dx); Rheumatoid arthritis of multiple 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 factor (HCC); Rheumatoid arthritis of multiple sites with negative [...] Time Taken Comments Blood Pressure 120/76 06/01/2016 2:09 PM PBX REPAIRER Pulse 85 06/01/2016 2:09 PM PBX REPAIRER Temperature - - Respiratory Rate - - Oxygen Saturation - - Inhaled Oxygen Concentration - - Weight 119.3 kg (263 lb) 06/01/2016 2:09 PM PBX REPAIRER Height - - Body Mass Index 37.74 01/11/2016 3:12 PM CDT documented in this encounter Progress Notes * Isidro Heredia MD - 06/01/2016 2:55 PM CST Subjective: Chalino Deng 55 y.o. male is here for Chief Complaint Patient presents with ??? Rheumatoid Arthritis HPI: On actemra And mtx for ra and percocet neurontin skelaxin For chronic pain Goes to dr phillips For epid Nerve injection good relief Pain Level 7/10 knees hands Am stiffness 1 hr Global 5/10 Fatigue yes Medication Side Effects no Going to have sigmoid polyp removed due to gi bleeding Current Outpatient Prescriptions on File Prior to [...] 1 Tab by mouth once daily ??? Ejkwxgvcwir-Awhpbrinx-Rbw C-Mn (GLUCOSAMINE CHONDR 1500 COMPLX PO) Take [...] lungs Objective: General Appearance Physical Exam: BP 120/76 Pulse 85 Wt 119.3 kg (263 lb) BMI 37.74 kg/m2 Head: perrla, eyes no irritation, vision and hearing intact, no oral ulcers, tongue normal, throat clear Neck:supple, no bruits, adenopathy Chest: clear, no rales, rhonchi or wheezes. Heart nsr. No S3,S4, or murmurs Abdomen:soft, no masses or tenderness, no organomegaly Genitalia, Groin, Buttocks: Back: no abnormal curvature, tenderness, or muscle spasm Extremities: No edema, cyanosis, or rash RUE: /, 6/SJ, 0/muscle tenderness or weakness LUE: 10/TJ, 5/SJ, 0/muscle tenderness or weakness RLE: 0/TJ, 0/SJ, 0/muscle tenderness or weakness LLE: 0/TJ, 0/SJ, 0/muscle tenderness or weakness Assessment: Encounter Diagnoses Name Primary? Chronic right-sided low back pain with right-sided sciatica Yes ??? Rheumatoid arthritis of multiple 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 factor ??? Rheumatoid arthritis of multiple sites with negative rheumatoid factor ??? Chronic pain syndrome poorly controlled chronic pain ra And lbp same meds Plan: Plan Orders Placed This Encounter ??? oxyCODONE-acetaminophen (PERCOCET) 5-325 MG tablet Sig: Take 1 Tab by mouth every 6 hours as needed for Pain Dx: 714.0 RA Dispense: 120 Tab Refill: 0 Follow up in office in 4 weeks REPAIRER documented in this encounter Plan of Treatment Upcoming Encounters Date Type Department Care Team (Late st Contact Info) Description 06/03/2024 1:00 PM PBX REPAIRER Appointment [facility] - Rheumatology [address] [place] [phone] 06/03/2024 2:00 PM PBX REPAIRER Office Visit [facility] - Rheumatology [address] [place] [address] [phone] Gloria Smith MD [address] [place] [phone] documented as of this encounter Visit Diagnoses Diagnosis Chronic right-sided low back pain with right-sided sciatica- Primary Rheumatoid arthritis of multiple 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 factor (HCC) Rheumatoid arthritis Rheumatoid arthritis of multiple sites with negative rheumatoid factor (HCC) Chronic pain syndrome documented in this encounter Care Teams Trauma Program Manager Relationship Specialty Start Date End Date Tomas Hyman MD [address] [facility] [address] [place] [address] PCP - General Family Medicine 12/31/13 05/09/18 Isidro Heredia MD Rheumatology 02/09/11 documented as of this encounter
--- OUTSIDE RECORDS SUMMARY | 2024-05-03 04:10 | XMS_ITS | Encounter Summary ---
Author Organization [facility] Address [address] [facility] [place] [address] Care Team Providers Care Abstract Maker Name Role Phone Isidro Heredia MD Unavailable [phone] Tomas Hyman MD Primary Care Provider [phone] Reason for Visit * Reason Comments Refill Request Encounter Details Date Type Department Care Team (Late Contact Info) Description 09/24/2015 Refill [facility] - Rheumatology [address] [place] [address] Isidro Heredia MD [address] [place] [phone] Refill Request Social History Tobacco Use [...] (Late Contact Info) Description 06/03/2024 1:00 PM PAINTER SPRING Appointment [facility] - Rheumatology [address] [place] [address] 06/03/2024 2:00 PM PAINTER SPRING Office Visit [facility] Rheumatology [address] [place] [address] Gloria Smith MD [address] [place] [address] [address] documented as of this encounter Visit Diagnoses Not on filedocumented in this encounter Care Teams Abstract Maker Relationship Specialty Start Date End Date Tomas Hyman MD [address] [place] [address] PCP - General Family Medicine 12/31/13 05/09/18 Isidro Heredia MD Rheumatology 02/09/11 documented as of this encounter
--- OUTSIDE RECORDS SUMMARY | 2024-05-03 04:10 | XMS_ITS | Encounter Summary ---
Author Organization [facility] Address [address] [place] [address] Care Team Providers Care Utility Sales And Service Manager Name Role Phone Isidro Heredia MD Unavailable [phone] Tomas Hyman MD Primary Care Provider [phone] Reason for Visit * Treatment (Routine) - Closed Specialty Diagnoses / Procedures Referred By Lawrence shah Referred To Contact Infusion Therapy Nurse Diagnoses Rheumatoid arthritis without rheumatoid factor, multiple sites (HCC) Procedures NE INJECTION TOCILIZUMAB 1 MG Isidro Heredia MD [address] [facility] [place] [address] [phone] Referral ID Status Reason Start Date Expiration Date Visits Re quested Visits Authorized [id number] Closed 08/07/2016 04/29/2017 1 12 Encounter Details Date Type Department Care Team (Late st Contact Info) Description 08/24/2016 1:00 PM CDT - 08/24/2016 11:59 PM CDT Hospital Encounter [facility] - Rheumatology [address] [place] [address] Isidro Heredia MD [address] [facility] [place] [address] Discharge Disposition: Home or Self [...] Reading Time Taken Comments Blood Pressure 150/85 08/24/2016 1:30 PM CDT Pulse 87 08/24/2016 1:30 PM CDT Temperature 36.4 ??C (97.6 ??F) 08/24/2016 1:52 PM CD T Respiratory Rate 16 08/24/2016 1:30 PM CDT Oxygen Saturation - - Inhaled Oxygen Concentration - - Weight 120.7 kg (266 lb) 08/24/2016 1:30 PM CDT Height - - Body Mass Index 38.17 01/11/2016 3:12 PM CDT documented in this encounter Discharge Instructions * Discharge Instructions* Carlos Foreman RN - 08/24/2016 2:09 PM CDT [facility] Post Infusion instructions You have [...] Sunday through 01-02 call the office at [phone] After hours or on the weekend call the exchange at [phone] If you have had lab work done [...] [facility] as your provider. aCrlos Foreman RN documented in this encounter Medications at Time of Discharge Medication Sig Dispensed Refills Start Date End Date atorvastatin (LIPITOR) 40 MG tablet Take 1 (one) tablet by mouth at bedtime Imoovxxjrzu-Ufgireszl-N it C-Mn (GLUCOSAMINE CHONDR 1500 COMPLX PO) [...] for Pain Dx: 714.0 RA 120 Tab 08/24/2016 09/21/2016 predniSONE (DELTASONE) 10 MG tablet TAKE 1 TABLET TWICE A DAY 180 Tab 1 06/19/2016 12/16/2016 documented as of this encounter Progress Notes * Carlos Foreman RN - 08/24/2016 2:05 PM CDT JOSE Deng [id number] 08/24/2016 Diagnosis: Rheumatoid arthritis without rheumatoid factor, multiple sites [M06.09]. BP 150/85 Pulse 87 Temp 97.6 ??F Resp 16 Wt 120.7 kg (266 lb) BMI 38.17 kg/m2 @ MEDICATIONS FOR CURRENT ENCOUNTER: ?? [...] Contact Info) Description 06/03/2024 1:00 PM LABORATORY OPERATIONS COORDINATOR Appointment [facility] - Rheumatology [address] [place] [address] 06/03/2024 2:00 PM LABORATORY OPERATIONS COORDINATOR Office Visit [facility] - Rheumatology [address] [place] [address] Gloria Smith MD [address] [place] [phone] documented as of this encounter Visit Diagnoses Diagnosis Rheumatoid arthritis of multiple sites with negative rheumatoid factor (HCC) documented in this encounter Administered Medications Inactive Administered Medications - up to 3 most recent administrations Medication Order MAR Action Action Date Dose Rate Site Tocilizumab 800 mg in 0.9% NaCl 100 mL IVPB 800 mg, Intravenous, ONCE, 1 dose, On Gabriela 08/24/16 at 1330, Stable 24hrs RT $ Given 08/24/2016 1:45 PM CDT 800 mg documented in this encounter Care Teams Utility Sales And Service Manager Relationship Specialty Start Date End Date Tomas Hyman MD [address] [place] [address] PCP - General Family Medicine 12/31/13 05/09/18 Isidro Heredia MD Rheumatology 02/09/11 documented as of this encounter
--- OUTSIDE RECORDS SUMMARY | 2024-05-03 04:10 | XMS_ITS | Encounter Summary ---
Author Organization [facility] Address [address] [facility] [place] [address] Care Team Providers Care Supervisor Intermediates Name Role Phone Isidro Heredia MD Unavailable Tomas Hyman MD Primary Care Provider Reason for Visit * Reason Comments Narcotic Refill percocet * Evaluate & Treat (Routine) - Closed Specialty Diagnoses / Procedures Referred By Contsarahi t Referred To Contact Diagnoses Rheumatoid arthritis, unspecified (HCC) Procedures [place] OFFICE VISIT DURING HOURS Tomas Hyman MD [address] [place] [address] Isidro Heredia MD [address] [place] [address] Referral ID Status Reason Start Date Expiration Date Visits Re quested Visits Authorized [id number] Closed 06/15/2016 06/15/2017 6 6 Encounter Details Date Type Department Care Team (Late st Contact Info) Description 07/27/2016 1:30 PM CDT Office Visit [facility] - Rheumatology [address] [place] [address] Isidro Heredia MD [address] [place] [address] Chronic right-sided low back pain with right-sided sciatica (Primary Dx); Chronic pain syndrome; Rheumatoid arthritis of multiple sites with negative rheumatoid factor (HCC); Subacromial bursitis Social History Tobacco Use Types Packs/Day Years [...] Time Taken Comments Blood Pressure 168/75 07/27/2016 1:42 PM CDT Pulse 75 07/27/2016 1:42 PM CDT Temperature - - Respiratory Rate - - Oxygen Saturation - - Inhaled Oxygen Concentration - - Weight 118.4 kg (261 lb) 07/27/2016 1:42 PM CDT Height - - Body Mass Index 37.45 01/11/2016 3:12 PM CDT documented in this encounter Progress Notes * Isidro Heredia MD - 07/27/2016 2:17 PM CDT Subjective: Chalino Deng 55 y.o. male is here for Chief Complaint Patient presents with ??? Narcotic Refill percocet HPI: on actemra mtx for ra a and [id number] neuontin skelaxin Pain Level 7/10 right shoulder Hands knees Am stiffness 1 hr Global 5/10 [...] 1 Tab by mouth once daily ??? Opoutwuieqy-Xcfcjadxd-Ioa C-Mn (GLUCOSAMINE CHONDR 1500 COMPLX PO) Take [...] lungs Objective: General Appearance Physical Exam: BP 168/75 Pulse 75 Wt 118.4 kg (261 lb) BMI 37.45 kg/m2 Head: perrla, eyes no irritation, vision [...] 8/TJ, 6/SJ, 0/muscle tenderness or weakness LUE: 8/TJ, 6/SJ, 0/muscle tenderness or weakness RLE: 1 /TJ, 1/SJ, 0/muscle tenderness or weakness knees LLE: 1/TJ, 1/SJ, 0/muscle tenderness or weakness Painful abduction right shoulder Assessment: Encounter Diagnoses Name Primary? Chronic right-sided low back pain with right-sided sciatica Yes ??? Chronic pain syndrome ??? Rheumatoid arthritis of multiple sites with negative rheumatoid factor ??? Rheumatoid arthritis of multiple 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 factor Poorly controlled ra chronic pain same meds Plan: Plan Orders Placed This Encounter ??? oxyCODONE-acetaminophen (PERCOCET) 5-325 MG tablet Sig: Take 1 Tab by mouth every 6 hours as needed for Pain Dx: 714.0 RA Dispense: 120 Tab Refill: 0 Under sterile condition, 2 cc's of tac with 1 cc 2% lidocaine were injected in the right shoulder subacromial bursa. 0 cc's of synovial fluid were aspirated. Patient tolerated procedure well without complications. Follow up in office in 8 weeks documented in this encounter Plan of Treatment Upcoming Encounters Date Type Department Care Team (Late st Contact Info) Description 06/03/2024 1:00 PM FIRER WATERTENDER Appointment [facility] - Rheumatology [address] [place] [address] 06/03/2024 2:00 PM FIRER WATERTENDER Office Visit [facility] - Rheumatology [address] [place] [address] [phone] Gloria Smith MD [address] [place] [phone] documented as of this encounter Visit Diagnoses Diagnosis Chronic right-sided low back pain with right-sided sciatica- Primary Chronic pain syndrome Rheumatoid arthritis of multiple sites with negative rheumatoid factor (HCC) Subacromial bursitis Other specified disorders of rotator cuff syndrome of shoulder and allied disorders documented in this encounter Administered Medications Administered Medications Medication Order MAR Action Action Date Dose Rate Site Triamcinolone Acetonide Intraarticular Given 07/27/2016 2 mL Right deltoid documented in this encounter Care Teams Supervisor Intermediates Relationship Specialty Start Date End Date Tomas Hyman MD [address] [facility] [address] [place] [address] PCP - General Family Medicine 12/31/13 05/09/18 Isidro Heredia MD Rheumatology 02/09/11 documented as of this encounter
--- OUTSIDE RECORDS SUMMARY | 2024-05-03 04:11 | XMS_ITS | Encounter Summary ---
Author Organization [facility] Address [address] [place] [address] Care Team Providers Care Train Engineer Name Role Phone Isidro Heredia MD Unavailable [phone] Tomas Hyman MD Primary Care Provider [phone] Reason for Visit * Treatment (Routine) - Closed Specialty Diagnoses / Procedures Referred By Lawrence shah Referred To Contact Infusion Therapy Nurse Diagnoses Rheumatoid arthritis(714.0) ([facility]) Procedures IN INJECTION TOCILIZUMAB 1 MG Isidro Heredia MD [address] [place] [address] [address] Referral ID Status Reason Start Date Expiration Date Visits Re quested Visits Authorized [id number] Closed 09/29/2014 04/29/2015 1 6 Encounter Details Date Type Department Care Team (Late st Contact Info) Description 04/07/2015 2:51 PM GOLF [employer]UB HEAD FORMER - 04/07/2015 11:59 PM GOLF CLUB HEAD FORMER Hospital Encounter [facility] Medical [facility] - Rheumatology [address] [place] [address] Isidro Heredia MD [address] [place] [address] Discharge Disposition: Home or Self [...] Sign Reading Time Taken Comments Blood Pressure 120/88 04/07/2015 3:10 PM G[facility]F [facility] FORMER Pulse 108 04/07/2015 3:10 PM GOLF [employer] [facility] FORMER Temperature 37 ??C (98.6 ??F) 04/07/2015 3:10 PM [facility] FORMER Respiratory Rate 16 04/07/2015 3:10 PM GOLF [facility] FORMER Oxygen Saturation - - Inhaled Oxygen Concentration - - Weight 117 kg (258 lb) 04/07/2015 3:10 PM [facility] [employer]MER Height 177.8 cm (5' 10 ) 04/07/2015 3:10 PM GOLF [employer] FORMER Body Mass Index 37.02 04/07/2015 3:10 PM GOLF [employer] FORMER documented in this encounter Discharge Instructions * Discharge Instructions* Jody Sahu RN - 04/07/2015 3:40 PM GOLF [facility]UB [facility] FORMER [place] Rheumatology Post Infusion instructions You have [...] Sunday through 01-02 call the office at [phone] After hours or on the weekend call the exchange at [phone] If you have had lab work done [...] Center as your provider. Jody Sahu RN CLUB HEAD FORMER documented in this encounter Medications at Time of Discharge Medication Sig Dispensed Refills Start Date End Date Fpfzrlutztm-Bsmtsvlvp-S it C-Mn (GLUCOSAMINE CHONDR 1500 COMPLX PO) Take 1 Tab by mouth once daily Magnesium Citrate 100 MG TABS Take 1 (one) tablet by mouth every other day Multiple Vitamin (MULTI-VITAMIN PO) Take 1 Tab by mouth once daily ZYRTEC 10 MG TABS Take 1 (one) tablet by mouth once daily Seasonal (nov alendronate (FOSAMAX) 70 MG tablet Take 1 Tab by mouth every 7 days before meal. Take in morning with full glass of water on empty stomach and remain upright for 30 min 12 Tab 3 08/12/2014 08/16/2015 aspirin EC (ECOTRIN) 81 MG tablet Take 81 mg by mouth once daily. 07/19/2015 carvedilol (COREG) 12.5 MG tablet Take 12.5 mg by mouth 2 times daily with morning and evening meal. 06/14/2015 esomeprazole (NEXIUM) 40 MG capsule Take 1 Cap by mouth daily before breakfast 90 Cap 3 11/05/2014 09/13/2015 gabapentin (NEURONTIN) 300 MG capsule Take 1 Cap by mouth 2 times daily 180 Cap 1 12/03/2014 11/15/2015 metaxalone (SKELAXIN) 800 MG tablet TAKE 1 TABLET THREE TIMES A DAY 270 Tab 1 09/14/2014 11/12/2015 methotrexate 2.5 MG tablet TAKE 6 TABLETS EVERY 7 DAYS 72 Tab 2 11/25/2014 07/01/2015 Multiple Vitamins-Minerals (OCUVITE PO) Take 1 Tab by mouth once daily 10/24/2017 naproxen (NAPROSYN) 500 MG tablet Take 1 Tab by mouth 2 times daily. 180 Tab 3 06/08/2014 04/26/2015 oxyCODONE-acetaminophen (PERCOCET) 5-325 MG tabletIndications:Rheum atoid arthritis of multiple 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 factor (HCC) Take 1 Tab by mouth every 6 hours as needed for Pain Dx: 714.0 RA Earliest Fill Date: 04/07/15 120 Tab 0 04/07/2015 05/17/2015 pravastatin (PRAVACHOL) 20 MG tablet Take 20 mg by mouth once daily. 06/14/2015 predniSONE (DELTASONE) 10 MG tablet TAKE 1 TABLET BY MOUTH 2 TIMES A DAY 180 Tab 3 11/05/2014 09/24/2015 triamcinolone acetonide (KENALOG) injection 2 mL by Intra-articular route once for 1 dose 2 mL 0 04/13/2015 04/13/2015 documented as of this encounter Progress Notes * Jody Sahu RN - 04/07/2015 3:42 PM CST JOSE Chalino Deng [id number] 04/07/2015 Diagnosis: Rheumatoid arthritis, unspecified [M06.9]. Pt denies symptoms of infection or antibiotic use, no open wounds, or recent surgery, or plans for surgery in the next couple of weeks. Pt is aware that we use the 0-10 pain scale to assess discomfort. 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 front office director pt signs consent for treatment for this infusion. BP 120/88 mmHg Pulse 108 Temp(Src) 98.6 ??F Resp 16 Wt 117.028 kg (258 lb) BMI 37.02 kg/m2 @ MEDICATIONS FOR CURRENT ENCOUNTER: ?? SCHEDULED MEDICATIONS: ?? tocilizumab (ACTEMRA) 800 mg in 0.9% NaCl IVPB, Intravenous, Once ?? CONTINUOUS MEDICATIONS: PRN MEDICATIONS: ?? Number of 24 gauge 3/4 inch placed in Left hand ?? 1 attempt(s). Patient monitored throughout procedure. Tolerated well? Yes Next treatment? 4 weeks Jody Sahu RN CLUB HEAD FORMER documented in this encounter Plan of Treatment Upcoming Encounters Date Type Department Care Team (Late st Contact Info) Description 06/03/2024 1:00 PM GOLF CLUB HEAD FORMER Appointment [facility] - Rheumatology [address] [place] [address] 06/03/2024 2:00 PM GOLF [employer]UB HEAD FORMER Office Visit [facility] - Rheumatology [address] [place] [address] Gloria Smith MD [address] [place] [phone] documented as of this encounter Visit Diagnoses Diagnosis Rheumatoid arthritis (HCC) Rheumatoid arthritis of multiple sites with negative rheumatoid factor (HCC) documented in this encounter Administered Medications Inactive Administered Medications - up to 3 most recent administrations Medication Order MAR Action Action Date Dose Rate Site tocilizumab (ACTEMRA) 800 mg in 0.9% NaCl IVPB 800 mg, at 140 mL/hr, Intravenous, ONCE, 1 dose, On Sun04/07/15 at 1530, 2 vials Actemra 400mg 0 waste. Stable 24hrs RT $ Given 04/07/2015 3:30 PM [facility] FORMER 800 mg 140 mL/hr documented in this encounter Care Teams Train Engineer Relationship Specialty Start Date End Date Tomas Hyman MD [address] [facility] [address] [place] [address] PCP - General Family Medicine 12/31/13 05/09/18 Isidro Heredia MD Rheumatology 02/09/11 documented as of this encounter
--- OUTSIDE RECORDS SUMMARY | 2024-05-03 04:11 | XMS_ITS | Encounter Summary ---
Author Organization [facility] Address [address] [place] [address] Care Team Providers Care Metal Miner Blasting Name Role Phone Isidro Heredia MD Unavailable [phone] Tomas Hyman MD Primary Care Provider [phone] Reason for Visit * Reason Comments Refill Request Encounter Details Date Type Department Care Team (Late Contact Info) Description 06/17/2015 Refill [facility] - Rheumatology [address] [place] [address] Isidro Heredia MD [address] [place] [address] Refill Request Social History Tobacco Use [...] (Late Contact Info) Description 06/03/2024 1:00 PM RECREATIONAL COUNSELOR Appointment [facility] - Rheumatology [address] [place] [address] 06/03/2024 2:00 PM RECREATIONAL COUNSELOR Office Visit [facility] Rheumatology [address] [place] [address] Gloria Smith MD [address] [place], [place] [address], [place] [address] documented as of this encounter Visit Diagnoses Not on filedocumented in this encounter Care Teams Metal Miner Blasting Relationship Specialty Start Date End Date Tomas Hyman MD [address] [place] [address] PCP - General Family Medicine 12/31/13 05/09/18 Isidro Heredia MD Rheumatology 02/09/11 documented as of this encounter
--- OUTSIDE RECORDS SUMMARY | 2024-05-03 04:11 | XMS_ITS | Encounter Summary ---
Author Organization [facility] Address [address] [facility] [place] [address] Care Team Providers Care Motor Coach Supervisor Name Role Phone Isidro Heredia MD Unavailable [phone] Tomas Hyman MD Primary Care Provider [phone] Reason for Visit * Reason Onset Date Comments MEDICATION REFILL 07/19/2015 Encounter Details Date Type Department Care Team (Late Contact Info) Description 07/19/2015 Refill [facility] - Rheumatology [address] [place] [address] Isidro Heredia MD [address] [place] [address] MEDICATION REFILL Social History Tobacco Use [...] (Late Contact Info) Description 06/03/2024 1:00 PM HEAT TRANSFER TECHNICIAN Appointment [facility] - Rheumatology [address] [place] [address] 06/03/2024 2:00 PM HEAT TRANSFER TECHNICIAN Office Visit [facility] - Rheumatology [address] [place] [address] Gloria Smith MD [address] [place] [phone] documented as of this encounter Visit Diagnoses Diagnosis Rheumatoid arthritis of multiple 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 factor (HCC)- Primary Rheumatoid arthritis documented in this encounter Care Teams Motor Coach Supervisor Relationship Specialty Start Date End Date Tomas Hyman MD [address] [facility] [address] [place] [address] PCP - General Family Medicine 12/31/13 05/09/18 Isidro Heredia MD Rheumatology 02/09/11 documented as of this encounter
--- OUTSIDE RECORDS SUMMARY | 2024-05-03 04:11 | XMS_ITS | Encounter Summary ---
Author Organization [facility] Address [address] [place] [address] Care Team Providers Care Wood Heel Flap Rubber Name Role Phone Isidro Heredia MD Unavailable [phone] Tomas Hyman MD Primary Care Provider [phone] Reason for Visit * Treatment (Routine) - Closed Specialty Diagnoses / Procedures Referred By Lawrence shah Referred To Contact Infusion Therapy Nurse Diagnoses Rheumatoid arthritis(714.0) (HCC) Rheumatoid arthritis without rheumatoid factor, multiple sites (HCC) Procedures DC INFLIXIMAB INJECTION DC INJECTION TOCILIZUMAB 1 MG Isidro Heredia MD [address] [place] [address] [phone] Referral ID Status Reason Start Date Expiration Date Visits Re quested Visits Authorized [id number] Closed 01/07/2015 01/08/2016 1 12 Encounter Details Date Type Department Care Team (Late st Contact Info) Description 02/04/2015 2:00 PM CDT - 02/04/2015 11:59 PM CDT Hospital Encounter [facility] Medical [facility] - Rheumatology [address] [place] [address] [phone] Isidro Heredia MD [address] [place] [address] Discharge Disposition: Home or Self [...] Sign Reading Time Taken Comments Blood Pressure 129/87 02/04/2015 2:14 PM CDT Pulse 107 02/04/2015 2:14 PM CDT Temperature 36.7 ??C (98 ??F) 02/04/2015 2:14 PM CDT Respiratory Rate 16 02/04/2015 2:14 PM CDT Oxygen Saturation - - Inhaled Oxygen Concentration - - Weight 112.7 kg (248 lb 6.4 oz) 02/04/2015 2:14 PM CDT Height 177.8 cm (5' 10 ) 02/04/2015 2:14 PM CDT Body Mass Index 35.64 02/04/2015 2:14 PM CDT documented in this encounter Discharge Instructions * Discharge Instructions* Jody Sahu RN - 02/04/2015 2:37 PM CDT [place] Rheumatology Post Infusion instructions [...] through Sunday 9-5 call the office at [phone] After hours or on the weekend call the exchange at [phone] If you have had lab work done [...] you and are glad you have chosen [facility] as your provider. Jody Sahu RN documented in this encounter Medications at Time of Discharge Medication Sig Dispensed Refills Start Date End Date Zqfdnjfbbrv-Neiaifufo-A it C-Mn (GLUCOSAMINE CHONDR 1500 COMPLX PO) [...] 04/26/2015 oxyCODONE-acetaminophen (PERCOCET) 5-325 MG tabletIndications:Rheum atoid arthritis(714.0) (HCC) Take 1 Tab by mouth every 6 hours as needed for Pain Dx: 714.0 RA 120 Tab 0 02/04/2015 03/04/2015 pravastatin (PRAVACHOL) 20 MG tablet Take 20 mg by mouth once daily. 06/14/2015 predniSONE (DELTASONE) 10 MG tablet TAKE 1 TABLET BY MOUTH 2 TIMES A DAY 180 Tab 3 11/05/2014 09/24/2015 documented as of this encounter Progress Notes * Jody Sahu RN - 02/04/2015 2:38 PM CDT JOSE Deng [id number] 02/04/2015 Diagnosis: There are no admission diagnoses documented for this encounter.. Pt denies symptoms of infection or antibiotic use, no open wounds, or recent surgery, or plans for surgery in the next couple of weeks. Pt is aware that we use the 0-10 pain scale to assess discomfort. 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 front end web developer pt signs consent for treatment for this infusion. Patient questionnaire results Health Assessment Questionnaire MHAQ: Pain: Global: Rapid 3: Sleep: GI: Fatigue: BP 129/87 mmHg Pulse 107 Temp(Src) 98 ??F Resp 16 Wt 112.674 kg (248 lb 6.4 oz) BMI 35.64kg/m2 @ MEDICATIONS FOR CURRENT ENCOUNTER: ?? SCHEDULED [...] st Contact Info) Description 06/03/2024 1:00 PM BLUE LINE OPERATOR Appointment [facility] - Rheumatology [address] [place] [address] 06/03/2024 2:00 PM BLUE LINE OPERATOR Office Visit [facility] - Rheumatology [address] [place] [address] Gloria Smith MD [address] [place] [phone] documented as of this encounter Visit Diagnoses Diagnosis Rheumatoid arthritis(714.0) (HCC) Rheumatoid arthritis documented in this encounter Administered Medications Inactive Administered Medications - up to 3 most recent administrations Medication Order MAR Action Action Date Dose Rate Site Tocilizumab 800 mg in 0.9% NaCl IVPB 800 mg, at 140 mL/hr, Intravenous, ONCE, 1 dose, On Gabriela 02/04/15 at 1430, 2 vials Actemra 400mg 0 waste. Stable 24hrs RT $ Given 02/04/2015 2:25 PM CDT 800 mg 140 mL/hr documented in this encounter Care Teams Wood Heel Flap Rubber Relationship Specialty Start Date End Date Tomas Hyman MD [address] [facility] [address] [place] [address] PCP - General Family Medicine 12/31/13 05/09/18 Isidro Heredia MD Rheumatology 02/09/11 documented as of this encounter
--- OUTSIDE RECORDS SUMMARY | 2024-05-03 04:11 | XMS_ITS | Encounter Summary ---
Author Organization [facility] Address [address] [facility] [place] [address] Care Team Providers Care Recordak Operator Name Role Phone Isidro Heredia MD Unavailable [phone] Tomas Hyman MD Primary Care Provider [phone] Encounter Details Date Type Department Care Team (Late st Contact Info) Description 08/16/2015 Orders Only [facility] Medical [facility] - Rheumatology [address] [place] [address] [phone] Isidro Heredia MD [address] [place] [address] Rheumatoid arthritis of multiple sites with [...] encounter Progress Notes * Vee Hair - 08/23/2015 9:28 AM CDTQuick Note: Patient notified via mychart. * Isidro Heredia MD - 08/23/2015 9:24 AM CDTQuick Note: mtx ok meron documented in this encounter Plan of Treatment Upcoming Encounters Date Type Department Care Team (Late st Contact Info) Description 06/03/2024 1:00 PM MEDICAL COLLECTIONS SPECIALIST Appointment [facility] - Rheumatology [address] [place] [address] [phone] 06/03/2024 2:00 PM MEDICAL COLLECTIONS SPECIALIST Office Visit [facility] - Rheumatology [address] [place] [address] Gloria Smith MD [address] [place] [phone] documented as of this encounter Procedures Procedure Name Priority Date/Time Associated Diagnosis Comments ERYTHROCYTE SEDIMENTATION RATE Routine 08/16/2015 4:00 PM CDT Rheumatoid arthritis of multiple sites with negative rheumatoid factor (HCC) CBC W AUTO DIFFERENTIAL Routine 08/16/2015 4:00 PM CDT Rheumatoid arthritis of multiple sites with negative rheumatoid factor (HCC) COMPREHENSIVE METABOLIC PANEL Routine 08/16/2015 4:00 PM CDT Rheumatoid arthritis of multiple 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 factor (HCC) documented in this encounter Results * SED RATE WESTERGREN (08/16/2015 4:00 PM CDT) Erythrocyte Sedimentation Rate Westergren 5 0 - 20 mm/hr [facility] INSURANCE BILL Blood specimen (specimen) BLOOD SPECIMEN / Unknown 08/16/2015 4:00 PM CDT 08/16/2015 7:43 PM CDT Narrative Resulting Agency Comment [facility] [address] [facility] ??Ziyad PENNY [id number] Isidro Heredia MD LAB - HEMATOLOGY OR DERABLES [facility] INSURANCE BILL * (ABNORMAL) COMPREHENSIVE METABOLIC PANEL (08/16/2015 4:00 PM CDT) Glucose 100 74 - 106 mg/dL [facility] INSURANCE BILL BUN 29(H) 7 - 21 mg/dL [facility] INSURANCE BILL Creatinine 1.20 0.50 - 1.30 mg/dL [facility] INSURANCE BILL eGFR by MDRD >60 >60 mL/min/1.7 3m2 [facility] INSURANCE BILL eGFR by MDRD >60 >60 mL/min/1.7 3m2 [facility] INSURANCE BILL Sodium 143 136 - 145 mmol/L [facility] INSURANCE BILL Potassium 4.7 3.5 - 5.1 mmol/L [facility] INSURANCE BILL Chloride 111(H) 98 - 107 mmol/L [facility] INSURANCE BILL CO2 24 22 - 31 mmol/L [facility] INSURANCE BILL Calcium 9.1 8.5 - 10.1 mg/dL [facility] INSURANCE BILL Protein Total 6.4 6.4 - 8.2 gm/dL [facility] INSURANCE BILL Albumin 3.9 3.4 - 5.0 gm/dL [facility] INSURANCE BILL Bilirubin Total 0.6 0.2 - 1.0 mg/dL [facility] INSURANCE BILL Alkaline Phosphatase 36(L) 38 - 126 U/L [facility] INSURANCE BILL AST 16 5 - 40 U/L [facility] INSURANCE BILL ALT 31 12 - 78 U/L [facility] INSURANCE BILL Blood specimen (specimen) BLOOD SPECIMEN / Unknown 08/16/2015 4:00 PM CDT 08/16/2015 7:43 PM CDT Narrative Resulting Agency Comment [facility] [address] [facility] ??Ziyad PENNY [phone] Isidro Heredia MD LAB - CHEMISTRY ORD ERABLES [facility] INSURANCE BILL * CBC W AUTO DIFFERENTIAL (08/16/2015 4:00 PM CDT) WBC 7.8 4.4 - 10.7 x10E9/L [facility] INSURANCE BILL RBC 4.03 3.80 - 5.40 x10E12/L [facility] INSURANCE BILL Hemoglobin 12.6 12.0 - 17.6 gm/dL [facility] INSURANCE BILL Hematocrit 39.4 35.2 - 51.7 % [facility] INSURANCE BILL MCV 97.8 80.7 - 98.3 fL [facility] INSURANCE BILL MCH 31.3 26.7 - 34.0 pg [facility] INSURANCE BILL MCHC 32.0 30.8 - 35.9 gm/dL [facility] INSURANCE BILL RDW 14.9 12.1 - 14.9 % [facility] INSURANCE BILL Platelet Count 155 153 - 416 x10E9/L [facility] INSURANCE BILL Comment:MPV FL BLOOD (SSM) 1 2.7 fl 9.4-12.9 Granulocytes % 61.4 44.0 - 73.0 % [facility] INSURANCE BILL Lymphocytes % 24.5 20.0 - 43.0 % [facility] INSURANCE BILL Monocytes % 10.6 5.0 - 13.0 % [facility] INSURANCE BILL Eosinophils % 2.6 0.0 - 6.0 % [facility] INSURANCE BILL Basophils % 0.6 0.0 - 2.0 % [facility] INSURANCE BILL Granulocytes Absolute 4.78 2.01 - 7.14 x10E9/L [facility] INSURANCE BILL Lymphocytes Absolute 1.90 1.07 - 3.94 x10E9/L [facility] INSURANCE BILL Monocytes Absolute 0.82 0.26 - 1.07 x10E9/L [facility] INSURANCE BILL Eosinophils Absolute 0.20 0 - 0.47 x10E9/L [facility] INSURANCE BILL Basophils Absolute 0.05 0 - 0.08 x10E9/L [facility] INSURANCE BILL Immature Granulocytes 0.3 0 - 1 % [facility] INSURANCE BILL Immature Granulocytes Absolute 0.02 0.00 - 0.06 x10E9/L [facility] INSURANCE BILL nRBC 0 /100 WBC [facility] INSURANCE BILL Blood specimen (specimen) BLOOD SPECIMEN / Unknown 08/16/2015 4:00 PM CDT 08/16/2015 7:43 PM CDT Narrative Resulting Agency Comment [facility] [address] [facility] ??[facility] [phone] Isidro Heredia MD LAB - HEMATOLOGY OR DERABLES [facility] INSURANCE BILL documented in this encounter Visit Diagnoses Diagnosis Rheumatoid arthritis of 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
--- OUTSIDE RECORDS SUMMARY | 2024-05-03 04:11 | XMS_ITS | Encounter Summary ---
Author Organization [facility] Address [address] [place] [address] Care Team Providers Care Smoking Pipe Driller And Threader Name Role Phone Isidro Heredia MD Unavailable [phone] Tomas Hyman MD Primary Care Provider [phone] Reason for Visit * Treatment (Routine) - Closed Specialty Diagnoses / Procedures Referred By Lawrence shah Referred To Contact Infusion Therapy Nurse Diagnoses Rheumatoid arthritis(714.0) ([facility]) Procedures WI INJECTION TOCILIZUMAB 1 MG Isidro Heredia MD [address] [place] [address] [address] Referral ID Status Reason Start Date Expiration Date Visits Re quested Visits Authorized [id number] Closed 09/29/2014 04/29/2015 1 6 Encounter Details Date Type Department Care Team (Late st Contact Info) Description 03/04/2015 1:40 PM JUICE TESTER - 03/04/2015 11:59 PM JUICE TESTER Hospital Encounter [facility] Medical [facility] - Rheumatology [address] [place] [address] Isidro Heredia MD [address] [place] [address] Discharge Disposition: Home or Self [...] Sign Reading Time Taken Comments Blood Pressure 133/88 03/04/2015 2:01 PM JUICE TESTER Pulse 103 03/04/2015 2:01 PM JUICE TESTER Temperature 37 ??C (98.6 ??F) 03/04/2015 2:01 PM JUICE TESTER Respiratory Rate 16 03/04/2015 2:01 PM JUICE TESTER Oxygen Saturation - - Inhaled Oxygen Concentration - - Weight 116.1 kg (256 lb) 03/04/2015 2:01 PM JUICE TESTER Height - - Body Mass Index 36.73 02/04/2015 2:14 PM CDT documented in this encounter Discharge Instructions * Discharge Instructions* Carlos Foreman RN - 03/04/2015 2:54 PM JUICE TESTER [place] Rheumatology Post Infusion instructions You have [...] Sunday through Sunday-5 call the office at [phone] After hours or on the weekend call the exchange at [phone] If you have had lab work done [...] [facility] as your provider. Carlos Foreman RN E TESTER documented in this encounter Medications at Time of Discharge Medication Sig Dispensed Refills Start Date End Date Eyydsihomms-Dsnpaotyx-G it C-Mn (GLUCOSAMINE CHONDR 1500 COMPLX PO) [...] oxyCODONE-acetaminophen (PERCOCET) 5-325 MG tabletIndications:Rheum atoid arthritis(714.0) ([facility]) Take 1 Tab by mouth every 6 hours as needed for Pain Dx: 714.0 RA 120 Tab 0 03/04/2015 04/07/2015 pravastatin (PRAVACHOL) 20 MG tablet Take 20 mg by mouth once daily. 06/14/2015 predniSONE (DELTASONE) 10 MG tablet TAKE 1 TABLET BY MOUTH 2 TIMES A DAY 180 Tab 3 11/05/2014 09/24/2015 documented as of this encounter Progress Notes * Carlos Foreman RN - 03/04/2015 2:34 PM CST JOSE Deng [id number] 03/04/2015 Diagnosis: Rheumatoid arthritis, unspecified [M06.9]. Patient questionnaire results Health Assessment Questionnaire BP 133/88 mmHg Pulse 103 Temp(Src) 98.6 ??F Resp 16 Wt 116.121 kg (256 lb) @ MEDICATIONS FOR CURRENT ENCOUNTER: ?? SCHEDULED MEDICATIONS: ?? tocilizumab (ACTEMRA) 800 mg in 0.9% NaCl IVPB, Intravenous, Once ?? CONTINUOUS MEDICATIONS: PRN MEDICATIONS: ?? Number of 24 gauge .75 inch placed in Left antecubital ?? 1 attempt(s). Patient monitored throughout procedure. Tolerated well? Yes Next treatment? 4wk Carlos Foreman RN E TESTER documented in this encounter Plan of Treatment Upcoming Encounters Date Type Department Care Team (Late st Contact Info) Description 06/03/2024 1:00 PM JUICE TESTER Appointment [facility] - Rheumatology [address] [place] [address] [phone] 06/03/2024 2:00 PM JUICE TESTER Office Visit [facility] - Rheumatology [address] [place] [address] [phone] Gloria Smith MD [address] [place] [phone] documented as of this encounter Visit Diagnoses Diagnosis Rheumatoid arthritis(714.0) ([facility]) Rheumatoid arthritis documented in this encounter Administered Medications Inactive Administered Medications - up to 3 most recent administrations Medication Order MAR Action Action Date Dose Rate Site tocilizumab (ACTEMRA) 800 mg in 0.9% NaCl IVPB 800 mg, at 140 mL/hr, Intravenous, ONCE, 1 dose, On Gabriela 03/04/15 at 1415, 2 vials Actemra 400mg 0 waste. Stable 24hrs RT $ Given 03/04/2015 2:16 PM JUICE TESTER 800 mg 118 mL/hr documented in this encounter Care Teams Smoking Pipe Driller And Threader Relationship Specialty Start Date End Date Tomas Hyman MD [address] [facility] [address] [place] [address] PCP - General Family Medicine 12/31/13 05/09/18 Isidro Heredia MD Rheumatology 02/09/11 documented as of this encounter
--- OUTSIDE RECORDS SUMMARY | 2024-05-03 04:11 | XMS_ITS | Encounter Summary ---
Author Organization [facility] Address [address] [place] [address] Care Team Providers Care Clutch Assembler Name Role Phone Isidro Heredia MD Unavailable [phone] Tomas Hyman MD Primary Care Provider Reason for Visit * Reason Comments Refill Request Encounter Details Date Type Department Care Team (Late Contact Info) Description 04/26/2015 Refill [facility] - Rheumatology [address] [place] [address] Isidro Heredia MD [address] [place] [address] Refill Request Social History Tobacco Use [...] (Late Contact Info) Description 06/03/2024 1:00 PM QUALITY ASSURANCE TESTER Appointment [facility] - Rheumatology [address] [place] [address] 06/03/2024 2:00 PM QUALITY ASSURANCE TESTER Office Visit [facility] Rheumatology [address] [place] [address] Gloria Smith MD [address] [place] [address] [address] documented as of this encounter Visit Diagnoses Not on filedocumented in this encounter Care Teams Clutch Assembler Relationship Specialty Start Date End Date Tomas Hyman MD [address] [place] [address] PCP - General Family Medicine 12/31/13 05/09/18 Isidro Heredia MD Rheumatology 02/09/11 documented as of this encounter
--- OUTSIDE RECORDS SUMMARY | 2024-05-03 04:11 | XMS_ITS | Encounter Summary ---
Author Organization [facility] Address [address] [facility] [place] [address] Care Team Providers Care Director Of User Experience Name Role Phone Isidro Heredia MD Unavailable Tomas Hyman MD Primary Care Provider [phone] Reason for Visit * Reason Comments Refill Request Encounter Details Date Type Department Care Team (Late Contact Info) Description 07/01/2015 Refill [facility] - Rheumatology [address] [place] [address] Isidro Heredia MD [address] [place] [address] Refill Request Social History Tobacco Use [...] Contact Info) Description 06/03/2024 1:00 PM MANAGER ANDROID Appointment [facility] - Rheumatology [address] [place] [address] 06/03/2024 2:00 PM MANAGER ANDROID Office Visit [facility] Rheumatology [address] [place] [address] Gloria Smith MD [address] [place], [place] [address] [address] documented as of this encounter Visit Diagnoses Not on filedocumented in this encounter Care Teams Director Of User Experience Relationship Specialty Start Date End Date Tomas Hyman MD [address] [place] [address] PCP - General Family Medicine 12/31/13 05/09/18 Isidro Heredia MD Rheumatology 02/09/11 documented as of this encounter
--- OUTSIDE RECORDS SUMMARY | 2024-05-03 04:11 | XMS_ITS | Encounter Summary ---
Author Organization [facility] Address [address] [place] [address] Care Team Providers Care Pattern Perforating Machine Operator Name Role Phone Hitesh Solis MD Unavailable [phone] Tomas Hyman MD Primary Care Provider Reason for Visit * Reason Comments Rheumatoid Arthritis * Evaluate & Treat (Routine) - Closed Specialty Diagnoses / Procedures Referred By Lawrence t Referred To Contact Diagnoses Rheumatoid arthritis with rheumatoid factor, unspecified (HCC) Procedures DE OFFICE VISIT DURING HOURS Tomas Hyman MD [address] [place] [address] Hitesh Solis MD [address] [place] [address] Referral ID Status Reason Start Date Expiration Date Visits Re quested Visits Authorized [id number] Closed 02/24/2015 02/24/2016 6 6 Encounter Details Date Type Department Care Team (Late st Contact Info) Description 04/07/2015 3:30 PM TAR ROOFER Office Visit [facility] - Rheumatology [address] [place] [address] Hitesh Solis MD [address] [place] [address] Rheumatoid arthritis of multiple 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 factor (HCC) (Primary Dx); Chronic pain syndrome; Right lumbar radiculopathy; Abnormal LFTs; Subacromial bursitis, right Social History Tobacco Use Types Packs/Day [...] Time Taken Comments Blood Pressure 120/88 04/07/2015 3:41 PM TAR ROOFER Pulse 108 04/07/2015 3:41 PM TAR ROOFER Temperature - - Respiratory Rate - - Oxygen Saturation - - Inhaled Oxygen Concentration - - Weight 117 kg (258 lb) 04/07/2015 3:41 PM TAR ROOFER Height - - Body Mass Index 37.02 04/07/2015 3:10 PM TAR ROOFER documented in this encounter Progress Notes * Yamileth Rodríguez MA - 04/12/2015 11:22 AM CSTQuick Note: Patient was given results through my chart message ROOFER * Hitesh Solis MD - 04/11/2015 10:26 PM CSTQuick Note: [place] [id number] bs 125 sl inc lfts ok Resume mtx meron ROOFER * Hitesh Solis MD - 04/07/2015 4:16 PM CST Subjective: Chalino Deng 54 y.o. male is here for Chief Complaint Patient presents with ??? Rheumatoid Arthritis HPI: mtx on hold due to abn lfts On actemra pred 15 mg/d For ra on neurontin Percocet skelaxin For chronic pain and lbp Got recent epid nerve inj for lumbar radiculopathy Pain Level 7/10 right shoulder hands knees Am stiffness 2 hrs Global 8/10 Fatigue yes Medication Side Effects no Current Outpatient Prescriptions on File Prior to Visit Medication Sig Dispense Refill ??? gabapentin (NEURONTIN) 300 MG capsule Take 1 Cap by mouth 2 times daily 180 Cap 1 ??? methotrexate 2.5 MG tablet TAKE 6 TABLETS EVERY 7 DAYS 72 Tab 2 ??? predniSONE (DELTASONE) 10 MG tablet TAKE 1 TABLET BY MOUTH 2 TIMES A DAY 180 Tab 3 ??? esomeprazole (NEXIUM) 40 MG capsule Take 1 Cap by mouth daily before breakfast 90 Cap 3 ??? metaxalone (SKELAXIN) 800 MG tablet TAKE 1 TABLET THREE TIMES A DAY 270 Tab 1 ??? alendronate (FOSAMAX) 70 MG tablet Take 1 Tab by mouth every 7 days before meal. Take in morning with full glass of water on empty stomach and remain upright for 30 min 12 Tab 3 ??? pravastatin (PRAVACHOL) 20 MG tablet Take 20 mg by mouth once daily. ??? carvedilol (COREG) 12.5 MG tablet Take 12.5 mg by mouth 2 times daily with morning and evening meal. ??? aspirin EC (ECOTRIN) 81 MG tablet Take 81 mg by mouth once daily. ??? naproxen (NAPROSYN) 500 MG tablet Take 1 Tab by mouth 2 times daily. 180 Tab 3 ??? Magnesium Citrate 100 MG TABS Take by mouth. ??? Multiple Vitamins-Minerals (OCUVITE PO) Take by mouth. ??? Multiple Vitamin (MULTI-VITAMIN PO) Take by mouth once daily. ??? Igbnpztnclu-Rcrjhyktv-Zaz C-Mn (GLUCOSAMINE CHONDR 1500 COMPLX PO) Take by mouth once daily. ??? ZYRTEC 10 MG TABS Take 10 mg by mouth once daily. Seasonal (nov. No current facility-administered medications on file prior to visit. Patient Active Problem List Diagnosis ??? Rheumatoid arthritis of multiple sites with negative rheumatoid factor ??? GERD (Gastroesophageal Reflux Disease) ??? Osteopenia ??? ANEMIA ??? Subacromial bursitis ??? Chronic pain syndrome ??? Pain medication agreement signed ??? Other and unspecified hyperlipidemia ??? Lumbar radiculopathy ??? Abnormal LFTs History Smoking status ??? Never Smoker Smokeless [...] No nocturia, dysuria, frequency, urgency, kidney stones. genk Heart lungs NEURO: No headaches, seizures, dizziness, confusion, numbness, tingling HEME/LYMPH: No bruising or bleeding, swollen glands SKIN: No rash, itching, dry skin ENDO No Heat or cold intol, no hyper or hypoglycemia PSYCH: No memory loss, disorientation, confusion, mood changes, ALLERGY/IMMU No runny nose, tearing, sneezing, cough, eye irritation Systems reviewed genl heart lungs Objective: General Appearance Physical Exam: wd wn wm in nad BP 120/88 mmHg Pulse 108 Wt 117.028 kg (258 lb) Head: perrla, eyes no irritation, vision and hearing intact, no oral ulcers, tongue normal, throat clear Neck:supple, no bruits, adenopathy Chest: clear, no rales, rhonchi or wheezes. Heart nsr. No S3,S4, or murmurs Abdomen:soft, no masses or tenderness, no organomegaly Genitalia, Groin, Buttocks: Back: no abnormal curvature, tenderness, or muscle spasm Extremities: No edema, cyanosis, or rash RUE: 13/TJ, 7/SJ, 0/muscle tenderness or weakness LUE: 13/TJ, 7/SJ, 0/muscle tenderness or weakness RLE: 1/TJ, 1/SJ, 0/muscle tenderness or weakness LLE: 1/TJ, 1/SJ, 0/muscle tenderness or weakness Painful abduction right shoulder Assessment: Encounter Diagnoses Name Primary? Rheumatoid arthritis of multiple 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 factor Yes ??? Chronic pain syndrome ??? Right lumbar radiculopathy ??? Abnormal LFTs ??? Subacromial bursitis, right poorly controlled ra and chronic pain Same meds Abn lfts hold mtx Lumbar radiculopathy better Plan: Plan Orders Placed This Encounter ??? TRIAMCINOLON ACETONID NOS 10 MG INJ ??? CBC W AUTO DIFFERENTIAL ??? COMPREHENSIVE METABOLIC PANEL ??? C-REACTIVE PROTEIN ??? SED RATE WESTERGREN ??? DE DRAIN/INJECT LARGE JOINT/BURSA ??? oxyCODONE-acetaminophen (PERCOCET) 5-325 MG tablet Sig: Take 1 Tab by mouth every 6 hours as needed for Pain Dx: 714.0 RA Earliest Fill Date: 04/07/15 Dispense: 120 Tab Refill: 0 ??? triamcinolone acetonide (KENALOG) injection Si mL by Intra-articular route once for 1 dose Dispense: 2 mL Refill: 0 Under sterile condition, 2 cc's of tac with 1 cc 2% lidocaine were injected in the Right subacromial burasa. 0 cc's of synovial fluid were aspirated. Patient tolerated procedure well without complications. Follow up in office in 4 weeks ROOFER documented in this encounter Miscellaneous Notes * Addendum Note - Hitesh Solis MD - 04/13/2015 6:19 PM CSTAddended by: HITESH SOLIS on: 04/13/2015 06:19 PM Modules accepted: Orders ROOFER documented in this encounter Plan of Treatment Upcoming Encounters Date Type Department Care Team (Late st Contact Info) Description 06/03/2024 1:00 PM TAR ROOFER Appointment [facility] - Rheumatology [address] [place] [address] 06/03/2024 2:00 PM TAR ROOFER Office Visit [facility] - Rheumatology [address] [place] [address] Gloria Smith MD [address] [place] [phone] documented as of this encounter Procedures Procedure Name Priority Date/Time Associated Diagnosis Comments C-REACTIVE PROTEIN Routine 04/07/2015 4: 30 PM TAR ROOFER Rheumatoid arthritis of multiple 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 factor (HCC) ERYTHROCYTE SEDIMENTATION RATE Routine 04/07/2015 4:30 PM TAR ROOFER Rheumatoid arthritis of multiple 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 factor (HCC) CBC W AUTO DIFFERENTIAL Routine 04/07/2015 4:30 PM TAR ROOFER Rheumatoid arthritis of multiple 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 factor (HCC) COMPREHENSIVE METABOLIC PANEL Routine 04/07/2015 4:30 PM TAR ROOFER Rheumatoid arthritis of multiple 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 factor (HCC) documented in this encounter Results * SED RATE WESTERGREN (04/07/2015 4:30 PM TAR ROOFER) Erythrocyte Sedimentation Rate Westergren 6 0 - 20 mm/hr [facility] INSURANCE BILL Blood specimen (specimen) BLOOD SPECIMEN / Unknown 04/07/2015 4:30 PM TAR ROOFER 04/07/2015 7:24 PM TAR ROOFER Narrative Resulting Agency Comment [facility] [id number] [address] ??Ziyad PENNY [id number] Hietsh Solis MD LAB - HEMATOLOGY OR DERABLES [facility] INSURANCE BILL * C-REACTIVE PROTEIN (04/07/2015 4:30 PM TAR ROOFER) C-Reactive Protein <0.29 <0.30 mg/dL [facility] INSURANCE BILL Blood specimen (specimen) BLOOD SPECIMEN / Unknown 04/07/2015 4:30 PM TAR ROOFER 04/07/2015 7:24 PM TAR ROOFER Narrative Resulting Agency Comment [facility] [address] ??Ziyad PENNY [id number] Hitesh Solis MD LAB - CHEMISTRY ORD ERABLES [facility] INSURANCE BILL * (ABNORMAL) COMPREHENSIVE METABOLIC PANEL (04/07/2015 4:30 PM TAR ROOFER) Glucose 125(H) 74 - 106 mg/dL [facility] INSURANCE BILL BUN 17 7 - 21 mg/dL [facility] INSURANCE BILL Creatinine 0.98 0.50 - 1.30 mg/dL [facility] INSURANCE BILL eGFR by MDRD >60 >60 mL/min/1.7 3m2 [facility] INSURANCE BILL eGFR by MDRD >60 >60 mL/min/1.7 3m2 [facility] INSURANCE BILL Sodium 142 136 - 145 mmol/L [facility] INSURANCE BILL Potassium 4.4 3.5 - 5.1 mmol/L [facility] INSURANCE BILL Chloride 108(H) 98 - 107 mmol/L [facility] INSURANCE BILL CO2 21(L) 22 - 31 mmol/L [facility] INSURANCE BILL Calcium 9.2 8.5 - 10.1 mg/dL [facility] INSURANCE BILL Protein Total 6.8 6.4 - 8.2 gm/dL [facility] INSURANCE BILL Albumin 4.1 3.4 - 5.0 gm/dL [facility] INSURANCE BILL Bilirubin Total 0.6 0.2 - 1.0 mg/dL [facility] INSURANCE BILL Alkaline Phosphatase 58 38 - 126 U/L [facility] INSURANCE BILL AST 20 5 - 40 U/L [facility] INSURANCE BILL ALT 36 12 - 78 U/L [facility] INSURANCE BILL Blood specimen (specimen) BLOOD SPECIMEN / Unknown 04/07/2015 4:30 PM TAR ROOFER 04/07/2015 7:24 PM TAR ROOFER Narrative Resulting Agency Comment [facility] [address] [facility] ??Ziyad PENNY [id number] Hitesh Solis MD LAB - CHEMISTRY ORD ERABLES [facility] INSURANCE BILL * (ABNORMAL) CBC W AUTO DIFFERENTIAL (04/07/2015 4:30 PM TAR ROOFER) WBC 11.6(H) 4.4 - 10.7 x10E9/L [facility] INSURANCE BILL RBC 4.11 3.80 - 5.40 x10E12/L [facility] INSURANCE BILL Hemoglobin 12.8 12.0 - 17.6 gm/dL [facility] INSURANCE BILL Hematocrit 40.0 35.2 - 51.7 % [facility] INSURANCE BILL MCV 97.3 80.7 - 98.3 fL [facility] INSURANCE BILL MCH 31.1 26.7 - 34.0 pg [facility] INSURANCE BILL MCHC 32.0 30.8 - 35.9 gm/dL [facility] INSURANCE BILL RDW 13.7 12.1 - 14.9 % [facility] INSURANCE BILL Platelet Count 171 153 - 416 x10E9/L [facility] INSURANCE BILL Comment:MPV FL BLOOD (SSM) 1 2.6 fl 9.4-12.9 Granulocytes % 74.8(H) 44.0 - 73.0 % [facility] INSURANCE BILL Lymphocytes % 16.7(L) 20.0 - 43.0 % [facility] INSURANCE BILL Monocytes % 6.4 5.0 - 13.0 % [facility] INSURANCE BILL Eosinophils % 1.5 0.0 - 6.0 % [facility] INSURANCE BILL Basophils % 0.3 0.0 - 2.0 % [facility] INSURANCE BILL Granulocytes Absolute 8.69(H) 2.01 - 7.14 x10E9/L [facility] INSURANCE BILL Lymphocytes Absolute 1.94 1.07 - 3.94 x10E9/L [facility] INSURANCE BILL Monocytes Absolute 0.75 0.26 - 1.07 x10E9/L [facility] INSURANCE BILL Eosinophils Absolute 0.18 0 - 0.47 x10E9/L [facility] INSURANCE BILL Basophils Absolute 0.04 0 - 0.08 x10E9/L [facility] INSURANCE BILL Immature Granulocytes 0.3 0 - 1 % [facility] INSURANCE BILL Immature Granulocytes Absolute 0.04 0.00 - 0.06 x10E9/L [facility] INSURANCE BILL nRBC 0 /100 WBC [facility] INSURANCE BILL Blood specimen (specimen) BLOOD SPECIMEN / Unknown 04/07/2015 4:30 PM TAR ROOFER 04/07/2015 7:24 PM TAR ROOFER Narrative Resulting Agency Comment [facility] [address] [facility] ??[facility] [id number] Hitesh Solis MD LAB - HEMATOLOGY OR DERABLES [facility] INSURANCE BILL documented in this encounter Visit Diagnoses Diagnosis Rheumatoid arthritis of multiple 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 factor (HCC)- Primary Rheumatoid arthritis Chronic pain syndrome Right lumbar radiculopathy Thoracic or lumbosacral neuritis or radiculitis, unspecified Abnormal LFTs Other abnormal blood chemistry Subacromial bursitis, right documented in this encounter Administered Medications Administered Medications Medication Order MAR Action Action Date Dose Rate Site Triamcinolone Acetonide Intraarticular Given 04/07/2015 2 mL Right Shoulde r documented in this encounter Care Teams Pattern Perforating Machine Operator Relationship Specialty Start Date End Date Tomas Hyman MD [address] [facility] [address] [place] [address] PCP - General Family Medicine 12/31/13 05/09/18 Hitesh Solis MD Rheumatology 02/09/11 documented as of this encounter
--- OUTSIDE RECORDS SUMMARY | 2024-05-03 04:11 | XMS_ITS | Encounter Summary ---
Author Organization [facility] Address [address] [facility] [place] [address] Care Team Providers Care Machine Records Units Supervisor Name Role Phone Isidro Heredia MD Unavailable [phone] Tomas Hyman MD Primary Care Provider [phone] Reason for Visit * Treatment (Routine) - Closed Specialty Diagnoses / Procedures Referred By Lawrence shah Referred To Contact Infusion Therapy Nurse Diagnoses Rheumatoid arthritis(714.0) (HCC) Rheumatoid arthritis without rheumatoid factor, multiple sites (HCC) Procedures WY INFLIXIMAB INJECTION WY INJECTION TOCILIZUMAB 1 MG Isidro Heredia MD [address] [place] [address] [address] Referral ID Status Reason Start Date Expiration Date Visits Re quested Visits Authorized [id number] Closed 01/07/2015 01/08/2016 1 12 Encounter Details Date Type Department Care Team (Late st Contact Info) Description 05/17/2015 2:40 PM CONTRACT PREPARER - 05/17/2015 11:59 PM CONTRACT PREPARER Hospital Encounter [facility] - Rheumatology [address] [place] [address] Isidro Heredia MD [address] [place] [address] Discharge Disposition: Home or Self [...] Sign Reading Time Taken Comments Blood Pressure 177/83 05/17/2015 3:35 PM CONTRACT PREPARER Pulse 85 05/17/2015 3:35 PM CONTRACT PREPARER Temperature 36.8 ??C (98.2 ??F) 05/17/2015 3:12 PM CS T Respiratory Rate 16 05/17/2015 3:12 PM CONTRACT PREPARER Oxygen Saturation - - Inhaled Oxygen Concentration - - Weight 115.8 kg (255 lb 6.4 oz) 05/17/2015 3:12 PM CONTRACT PREPARER Height - - Body Mass Index 36.65 04/07/2015 3:10 PM CONTRACT PREPARER documented in this encounter Discharge Instructions * Discharge Instructions* Jody Sahu RN - 05/17/2015 3:17 PM CONTRACT PREPARER ME Rheumatology Post Infusion instructions You have received [...] through Sunday 9-5 call the office at [phone] After hours or on the weekend call the exchange at [phone] If you have had lab work done [...] Center as your provider. Jody Sahu RN RACT PREPARER documented in this encounter Medications at Time of Discharge Medication Sig Dispensed Refills Start Date End Date Igxibcmcscy-Usodsnwrq-I it C-Mn (GLUCOSAMINE CHONDR 1500 COMPLX PO) [...] Pain Dx: 714.0 RA Earliest Fill Date: 05/17/15 120 Tab 0 05/17/2015 06/14/2015 pravastatin (PRAVACHOL) 20 MG tablet Take 20 mg by mouth once daily. 06/14/2015 predniSONE (DELTASONE) 10 MG tablet TAKE 1 TABLET BY MOUTH 2 TIMES A DAY 180 Tab 3 11/05/2014 09/24/2015 documented as of this encounter Progress Notes * Jody Sahu RN - 05/17/2015 3:33 PM CST JOSE Chalino Deng [id number] 05/17/2015 Diagnosis: Rheumatoid arthritis without rheumatoid factor, multiple sites [M06.09]. Pt denies symptoms of infection or antibiotic use, no open wounds, or recent surgery, or plans for surgery in the next couple of weeks. Pt is aware that we use the 0-10 pain scale to assess discomfort. 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 front elevator operator pt signs consent for treatment for this infusion. BP 167/89 mmHg Pulse 101 Temp(Src) 98.2 ??F Resp 16 Wt 115.849 kg (255 lb 6.4 oz) @ MEDICATIONS FOR CURRENT ENCOUNTER: ?? SCHEDULED MEDICATIONS: ?? tocilizumab (ACTEMRA) 800 mg in 0.9% NaCl IVPB, Intravenous, Once ?? CONTINUOUS MEDICATIONS: PRN MEDICATIONS: ?? Number of 24 gauge 3/4 inch placed in Right antecubital ?? 1 attempt(s). Patient monitored throughout procedure. Tolerated well? Yes Next treatment? 4 weeks Jody Sahu RN RACT PREPARER documented in this encounter Plan of Treatment Upcoming Encounters Date Type Department Care Team (Late st Contact Info) Description 06/03/2024 1:00 PM CONTRACT PREPARER Appointment [facility] - Rheumatology [address] [place] [address] 06/03/2024 2:00 PM CONTRACT PREPARER Office Visit [facility] - Rheumatology [address] [place] [address] Gloria Smith MD [address] [place] [phone] documented as of this encounter Visit Diagnoses Diagnosis Rheumatoid arthritis of multiple sites with negative rheumatoid factor (HCC) documented in this encounter Administered Medications Inactive Administered Medications - up to 3 most recent administrations Medication Order MAR Action Action Date Dose Rate Site tocilizumab (ACTEMRA) 800 mg in 0.9% NaCl IVPB 800 mg, at 140 mL/hr, Intravenous, ONCE, 1 dose, On Sun05/17/15 at 1530, 2 vials Actemra 400mg 0 waste. Stable 24hrs RT $ Given 05/17/2015 3:20 PM CONTRACT PREPARER 800 mg 140 mL/hr documented in this encounter Care Teams Machine Records Units Supervisor Relationship Specialty Start Date End Date Tomas Hyman MD [address] [facility] [address] [place] [address] PCP - General Family Medicine 12/31/13 05/09/18 Isidro Heredia MD Rheumatology 02/09/11 documented as of this encounter
--- OUTSIDE RECORDS SUMMARY | 2024-05-03 04:11 | XMS_ITS | Encounter Summary ---
Author Organization [facility] Address [address] [facility] [place] [address] Care Team Providers Care Business Test Analyst Name Role Phone Isidro Heredia MD Unavailable [phone] Tomas Hyman MD Primary Care Provider [phone] Reason for Visit * Reason Comments Rheumatoid Arthritis * Evaluate & Treat (Routine) - Closed Specialty Diagnoses / Procedures Referred By Lawrence t Referred To Contact Diagnoses Rheumatoid arthritis(714.0) ([facility]) Procedures [place] OFFICE/OUTPT VISIT,EST,JULITO I Tomas Hyman MD [address] [place] [address] Isidro Heredia MD [address] [place] [address] Referral ID Status Reason Start Date Expiration Date Visits Re quested Visits Authorized [id number] Closed 09/09/2014 03/08/2015 5 5 Encounter Details Date Type Department Care Team (Late st Contact Info) Description 03/04/2015 2:45 PM SPECIAL AGENT SECRET SERVICE Office Visit [facility] Medical [facility] - Rheumatology [address] [place] [address] Isidro Heredia MD [address] [place] [address] Rheumatoid arthritis(714.0) (HCC) (Primary Dx); Chronic pain syndrome; Right lumbar radiculopathy Social History Tobacco Use Types Packs/Day Years [...] Time Taken Comments Blood Pressure 133/88 03/04/2015 2:05 PM SPECIAL AGENT SECRET SERVICE Pulse 103 03/04/2015 2:05 PM SPECIAL AGENT SECRET SERVICE Temperature - - Respiratory Rate - - Oxygen Saturation - - Inhaled Oxygen Concentration - - Weight 116.1 kg (256 lb) 03/04/2015 2:05 PM SPECIAL AGENT SECRET SERVICE Height - - Body Mass Index 36.73 02/04/2015 2:14 PM CDT documented in this encounter Progress Notes * Yamileth Rodríguez MA - 03/08/2015 12:08 PM CSTQuick Note: Message sent via my chart regarding lab results IAL AGENT SECRET SERVICE * Isidro Heredia MD - 03/08/2015 7:26 AM CSTQuick Note: lfts inc sgot and sgpt hold mtx Chol high 262 Trig high 461 meron IAL AGENT SECRET SERVICE * Isidro Heredia MD - 03/04/2015 3:48 PM CST Subjective: Chalino Deng 54 y.o. male is here for Chief Complaint Patient presents with ??? Rheumatoid Arthritis HPI: On mtx actemra prednisone 15mg/d For ra And neurontin percocet skelaxin for chronic pain and lbp Pain Level 7/10 hands right ankle knees Hips right shoulder Am stiffness 2 hrs Global 8/10 Fatigue [...] PO) Take by mouth once daily. ??? Vzhlipfejbh-Ljorbngwd-Hoj C-Mn (GLUCOSAMINE CHONDR 1500 COMPLX PO) Take by mouth once daily. ??? ZYRTEC 10 MG TABS Take 10 mg by mouth once daily. Seasonal (nov. No current facility-administered medications on file prior to visit. Patient Active Problem List Diagnosis ??? Rheumatoid arthritis(714.0) ??? GERD (Gastroesophageal Reflux Disease) ??? Osteopenia ??? ANEMIA ??? Subacromial bursitis ??? Chronic pain syndrome ??? Pain medication agreement signed ??? Other and unspecified hyperlipidemia ??? Lumbar radiculopathy History Smoking status ??? Never Smoker Smokeless [...] lungs Objective: General Appearance Physical Exam: BP 133/88 mmHg Pulse 103 Wt 116.121 kg (256 lb) Head: perrla, eyes no irritation, vision [...] 6/SJ, 0/muscle tenderness or weakness LUE: 8/TJ, 8/SJ, 0/muscle tenderness or weakness RLE: 1/TJ, 1/SJ, 0/muscle tenderness or weakness LLE: 1/TJ, 1/SJ, 0/muscle tenderness or weakness Assessment: Encounter Diagnoses Name Primary? Rheumatoid arthritis(714.0) Yes ??? Chronic pain syndrome ??? Right lumbar radiculopathy poorly controlled chronic pain and lumbar radiculopathy same meds Plan: Plan Orders Placed This Encounter ??? CBC W AUTO DIFFERENTIAL ??? COMPREHENSIVE METABOLIC PANEL ??? SED RATE WESTERGREN ??? LIPID PROFILE W TCHOL/HDL (PO REF LAB) ??? oxyCODONE-acetaminophen (PERCOCET) 5-325 MG tablet Sig: Take 1 Tab by mouth every 6 hours as needed for Pain Dx: 714.0 RA Dispense: 120 Tab Refill: 0 Follow up in office in 4 weeks IAL AGENT SECRET SERVICE documented in this encounter Plan of Treatment Upcoming Encounters Date Type Department Care Team (Late st Contact Info) Description 06/03/2024 1:00 PM SPECIAL AGENT SECRET SERVICE Appointment [facility] - Rheumatology [address] [place] [address] 06/03/2024 2:00 PM SPECIAL AGENT SECRET SERVICE Office Visit [facility] - Rheumatology [address] [place] [address] Gloria Smith MD [address] [place] [phone] documented as of this encounter Procedures Procedure Name Priority Date/Time Associated Diagnosis Comments LIPID PROFILE W TCHOL/HDL Routine 03/04/2015 2:00 PM SPECIAL AGENT SECRET SERVICE Rheumatoid arthritis(714.0) ([facility]) ERYTHROCYTE SEDIMENTATION RATE Routine 03/04/2015 2:00 PM SPECIAL AGENT SECRET SERVICE Rheumatoid arthritis(714.0) ([facility]) CBC W AUTO DIFFERENTIAL Routine 03/04/2015 2:00 PM SPECIAL AGENT SECRET SERVICE Rheumatoid arthritis(714.0) ([facility]) COMPREHENSIVE METABOLIC PANEL Routine 03/04/2015 2:00 PM SPECIAL AGENT SECRET SERVICE Rheumatoid arthritis(714.0) ([facility]) documented in this encounter Results * (ABNORMAL) LIPID PROFILE W TCHOL/HDL (PO REF LAB) (03/04/2015 2:00 PM SPECIAL AGENT SECRET SERVICE) Cholesterol 262(H) <200 mg/dL [facility] INSURANCE BILL Triglycerides 461(H) <150 mg/dL [facility] INSURANCE BILL HDL Cholesterol 49 >40 mg/dL [facility] INSURANCE BILL VLDL Calculated <=30 mg/dL [facility] INSURANCE BILL Comment: Unable to calculate LDL due to elevated Triglycerides, please consider ordering a Direct LDL. LDL Calculated <130 mg/dL [facility] INSURANCE BILL Comment: Unable to calculate LDL due to elevated Triglycerides, please consider ordering a Direct LDL. LDL/HDL RATIO BLOOD ([facility]) ?<5.0 Unable to calculate LDL due to elevated Triglycerides, please consider ordering a Direct LDL. Cholesterol/HDL Ratio 5.3(H) <4.5 [facility] INSURANCE BILL Blood specimen (specimen) BLOOD SPECIMEN / Unknown 03/04/2015 2:00 PM SPECIAL AGENT SECRET SERVICE 03/04/2015 6:11 PM SPECIAL AGENT SECRET SERVICE Narrative Resulting Agency Comment [facility] [address] ??[place] [phone] Isidro Heredia MD LAB - CHEMISTRY ORD ERABLES [facility] INSURANCE BILL * SED RATE WESTERGREN (03/04/2015 2:00 PM SPECIAL AGENT SECRET SERVICE) Erythrocyte Sedimentation Rate Westergren 7 0 - 20 mm/hr [facility] INSURANCE BILL Blood specimen (specimen) BLOOD SPECIMEN / Unknown 03/04/2015 2:00 PM SPECIAL AGENT SECRET SERVICE 03/04/2015 6:11 PM SPECIAL AGENT SECRET SERVICE Narrative Resulting Agency Comment [facility] [address] ??[place] [phone] Isidro Heredia MD LAB - HEMATOLOGY OR DERABLES [facility] INSURANCE BILL * (ABNORMAL) COMPREHENSIVE METABOLIC PANEL (03/04/2015 2:00 PM SPECIAL AGENT SECRET SERVICE) Glucose 106 74 - 106 mg/dL [facility] INSURANCE BILL BUN 18 7 - 21 mg/dL [facility] INSURANCE BILL Creatinine 0.86 0.50 - 1.30 mg/dL [facility] INSURANCE BILL eGFR by MDRD >60 >60 mL/min/1.7 3m2 [facility] INSURANCE BILL eGFR by MDRD >60 >60 mL/min/1.7 3m2 [facility] INSURANCE BILL Sodium 141 136 - 145 mmol/L [facility] INSURANCE BILL Potassium 4.2 3.5 - 5.1 mmol/L [facility] INSURANCE BILL Chloride 107 98 - 107 mmol/L [facility] INSURANCE BILL CO2 26 22 - 31 mmol/L [facility] INSURANCE BILL Calcium 8.8 8.5 - 10.1 mg/dL [facility] INSURANCE BILL Protein Total 6.7 6.4 - 8.2 gm/dL [facility] INSURANCE BILL Albumin 3.9 3.4 - 5.0 gm/dL [facility] INSURANCE BILL Bilirubin Total 0.7 0.2 - 1.0 mg/dL [facility] INSURANCE BILL Alkaline Phosphatase 55 38 - 126 U/L [facility] INSURANCE BILL AST 42(H) 5 - 40 U/L [facility] INSURANCE BILL ALT 102(H) 12 - 78 U/L [facility] INSURANCE BILL Blood specimen (specimen) BLOOD SPECIMEN / Unknown 03/04/2015 2:00 PM SPECIAL AGENT SECRET SERVICE 03/04/2015 6:11 PM SPECIAL AGENT SECRET SERVICE Narrative Resulting Agency Comment [facility] [address] [facility] ??[place] [phone] Isidro Heredia MD LAB - CHEMISTRY ORD ERABLES [facility] INSURANCE BILL * CBC W AUTO DIFFERENTIAL (03/04/2015 2:00 PM SPECIAL AGENT SECRET SERVICE) WBC 9.2 4.4 - 10.7 x10E9/L [facility] INSURANCE BILL RBC 4.06 3.80 - 5.40 x10E12/L [facility] INSURANCE BILL Hemoglobin 12.6 12.0 - 17.6 gm/dL [facility] INSURANCE BILL Hematocrit 39.3 35.2 - 51.7 % [facility] INSURANCE BILL MCV 96.8 80.7 - 98.3 fL [facility] INSURANCE BILL MCH 31.0 26.7 - 34.0 pg [facility] INSURANCE BILL MCHC 32.1 30.8 - 35.9 gm/dL [facility] INSURANCE BILL RDW 14.8 12.1 - 14.9 % [facility] INSURANCE BILL Platelet Count 170 153 - 416 x10E9/L [facility] INSURANCE BILL Comment:MPV FL BLOOD (SSM) 1 2.0 fl 9.4-12.9 Granulocytes % 66.1 44.0 - 73.0 % [facility] INSURANCE BILL Lymphocytes % 26.0 20.0 - 43.0 % [facility] INSURANCE BILL Monocytes % 6.4 5.0 - 13.0 % [facility] INSURANCE BILL Eosinophils % 1.0 0.0 - 6.0 % [facility] INSURANCE BILL Basophils % 0.2 0.0 - 2.0 % [facility] INSURANCE BILL Granulocytes Absolute 6.10 2.01 - 7.14 x10E9/L [facility] INSURANCE BILL Lymphocytes Absolute 2.40 1.07 - 3.94 x10E9/L [facility] INSURANCE BILL Monocytes Absolute 0.59 0.26 - 1.07 x10E9/L [facility] INSURANCE BILL Eosinophils Absolute 0.09 0 - 0.47 x10E9/L [facility] INSURANCE BILL Basophils Absolute 0.02 0 - 0.08 x10E9/L [facility] INSURANCE BILL Immature Granulocytes 0.3 0 - 1 % [facility] INSURANCE BILL Immature Granulocytes Absolute 0.03 0.00 - 0.06 x10E9/L [facility] INSURANCE BILL nRBC 0 /100 WBC [facility] INSURANCE BILL Blood specimen (specimen) BLOOD SPECIMEN / Unknown 03/04/2015 2:00 PM SPECIAL AGENT SECRET SERVICE 03/04/2015 6:11 PM SPECIAL AGENT SECRET SERVICE Narrative Resulting Agency Comment [facility] [address] [facility] ??[facility] [phone] Isidro Heredia MD LAB - HEMATOLOGY OR DERABLES [facility] INSURANCE BILL documented in this encounter Visit Diagnoses Diagnosis Rheumatoid arthritis(714.0) (HCC)- Primary Rheumatoid arthritis Chronic pain syndrome Right lumbar radiculopathy Thoracic or lumbosacral neuritis or radiculitis, unspecified documented in this encounter Care Teams Business Test Analyst Relationship Specialty Start Date End Date Tomas Hyman MD [address] [facility] [address] [place] [address] PCP - General Family Medicine 12/31/13 05/09/18 Isidro Heredia MD Rheumatology 02/09/11 documented as of this encounter
--- OUTSIDE RECORDS SUMMARY | 2024-05-03 04:11 | XMS_ITS | Encounter Summary ---
Author Organization [facility] Address [address] [facility] [place] [address] Care Team Providers Care Aircraft Mechanic Structures Name Role Phone Isidro Heredia MD Unavailable [phone] Tomas Hyman MD Primary Care Provider [phone] Encounter Details Date Type Department Care Team (Late st Contact Info) Description 07/19/2015 Orders Only [facility] Medical [facility] - Rheumatology [address] [place] [address] [phone] Isidro Heredia MD [address] [place] [address] Rheumatoid arthritis of multiple sites with [...] encounter Progress Notes * Vee Hair - 07/26/2015 8:49 AM CDTQuick Note: Patient notified via mychart. * Isidro Heredia MD - 07/25/2015 10:00 PM CDTQuick Note: Chol min inc 203 Trig high as before 338 documented in this encounter Plan of Treatment Upcoming Encounters Date Type Department Care Team (Late st Contact Info) Description 06/03/2024 1:00 PM SHIP'S ELECTRONIC WARFARE OFFICER Appointment [facility] - Rheumatology [address] [place] [address] [phone] 06/03/2024 2:00 PM SHIP'S ELECTRONIC WARFARE OFFICER Office Visit [facility] - Rheumatology [address] [place] [address] Gloria Smith MD [address] [place] [phone] documented as of this encounter Procedures Procedure Name Priority Date/Time Associated Diagnosis Comments LIPID PROFILE W TCHOL/HDL Routine 07/19/2015 4:30 PM CDT Rheumatoid arthritis of multiple sites with negative rheumatoid factor (HCC) documented in this encounter Results * (ABNORMAL) LIPID PROFILE W TCHOL/HDL (PO REF LAB) (07/19/2015 4:30 PM CDT) Cholesterol 203(H) <200 mg/dL [facility] INSURANCE BILL Triglycerides 338(H) <150 mg/dL [facility] INSURANCE BILL HDL Cholesterol 48 >40 mg/dL [facility] INSURANCE BILL VLDL Calculated 68(H) <=30 mg/dL [facility] INSURANCE BILL LDL Calculated 87 <130 mg/dL [facility] INSURANCE BILL Comment:LDL/HDL RATIO BLOOD ([facility]) 1.8 <5.0 Cholesterol/HDL Ratio 4.2 <4.5 [facility] INSURANCE BILL Blood specimen (specimen) BLOOD SPECIMEN / Unknown 07/19/2015 4:30 PM CDT 07/19/2015 7:11 PM CDT Narrative Resulting Agency Comment [facility] [address] [facility] [place] [phone] Isidro Heredia MD LAB - CHEMISTRY ORD ERABLES [facility] INSURANCE BILL documented in this encounter Visit Diagnoses Diagnosis Rheumatoid arthritis of 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
--- OUTSIDE RECORDS SUMMARY | 2024-05-03 04:11 | XMS_ITS | Encounter Summary ---
Author Organization [facility] Address [address] [facility] [place] [address] Care Team Providers Care Actimize Architect Name Role Phone Isidro Heredia MD Unavailable [phone] Tomas Hyman MD Primary Care Provider [phone] Reason for Visit * Reason Comments Rheumatoid Arthritis * Evaluate & Treat (Routine) - Closed Specialty Diagnoses / Procedures Referred By Lawrence t Referred To Contact Diagnoses Rheumatoid arthritis(714.0) ([facility]) Procedures [place] OFFICE/OUTPT VISIT,EST,JULITO I Tomas Hyman MD [address] [place] [address] Isidro Heredia MD [address] [place] [address] Referral ID Status Reason Start Date Expiration Date Visits Re quested Visits Authorized [id number] Closed 09/09/2014 03/08/2015 5 5 Encounter Details Date Type Department Care Team (Late st Contact Info) Description 02/04/2015 2:15 PM CDT Office Visit [facility] Medical [facility] - Rheumatology [address] [place] [address] Isidro Heredia MD [address] [place] [address] Rheumatoid arthritis(714.0) (HCC) (Primary Dx); Chronic pain syndrome Social [...] Time Taken Comments Blood Pressure 129/87 02/04/2015 2:18 PM CDT Pulse 107 02/04/2015 2:18 PM CDT Temperature - - Respiratory Rate - - Oxygen Saturation - - Inhaled Oxygen Concentration - - Weight 112.5 kg (248 lb) 02/04/2015 2:18 PM CDT Height - - Body Mass Index 35.58 02/04/2015 2:14 PM CDT documented in this encounter Progress Notes * Isidro Heredia MD - 02/04/2015 3:07 PM CDT Subjective: Chalino Deng 54 y.o. male is here for Chief Complaint Patient presents with ??? Rheumatoid Arthritis HPI: On mtx actemra pred 15mg/d for ra On neurontin percocet Skelaxin for chronic pain r shoulder better after steroid shot Pain Level 6/10 knees Am stiffness 2 hrs Global 9/10 Fatigue ye Medication Side Effects no Current Outpatient Prescriptions [...] PO) Take by mouth once daily. ??? Blbvevzembu-Osdrvpzza-Cdn C-Mn (GLUCOSAMINE CHONDR 1500 COMPLX PO) Take [...] lungs Objective: General Appearance Physical Exam: BP 129/87 mmHg Pulse 107 Wt 112.492 kg (248 lb) Head: perrla, eyes no irritation, vision [...] Encounter Diagnoses Name Primary? Rheumatoid arthritis(714.0) Yes Plan: Plan Orders Placed This Encounter ??? oxyCODONE-acetaminophen (PERCOCET) 5-325 MG tablet Sig: Take 1 Tab by mouth every 6 hours as needed for Pain Dx: 714.0 RA Dispense: 120 Tab Refill: 0 Follow up in office in 4 weeks documented in this encounter Plan of Treatment Upcoming Encounters Date Type Department Care Team (Late st Contact Info) Description 06/03/2024 1:00 PM MATURITY CHECKER Appointment [facility] - Rheumatology [address] [place] [address] [phone] 06/03/2024 2:00 PM MATURITY CHECKER Office Visit [facility] - Rheumatology [address] [place] [address] [phone] Gloria Smith MD [address] [place] [phone] documented as of this encounter Visit Diagnoses Diagnosis Rheumatoid arthritis(714.0) ([facility])- Primary Rheumatoid arthritis Chronic pain syndrome documented in this encounter Care Teams Actimize Architect Relationship Specialty Start Date End Date Tomas Hyman MD [address] [facility] [address] [place] [address] PCP - General Family Medicine 12/31/13 05/09/18 Isidro Heredia MD Rheumatology 02/09/11 documented as of this encounter
--- OUTSIDE RECORDS SUMMARY | 2024-05-03 04:11 | XMS_ITS | Encounter Summary ---
Author Organization [facility] Address [address] [place] [address] Care Team Providers Care Barrel Cooper Name Role Phone Isidro Heredia MD Unavailable [phone] Tomas Hyman MD Primary Care Provider [phone] Reason for Visit * Treatment (Routine) - Closed Specialty Diagnoses / Procedures Referred By Lawrence shah Referred To Contact [place] [id number] [address] [facility] Pain Care [address] [place] [address] Referral ID Status Reason Start Date Expiration Date Visits Re quested Visits Authorized [id number] Closed 12/21/2014 06/19/2015 1 6 Encounter Details Date Type Department Care Team (Latest Contact Info) Description 04/06/2015 1:30 PM EDITOR PRODUCER - 04/06/2015 1:42 PM [facility] Hospital Encounter [facility] Pain Care [address] [place] [address] [place] [phone] [address] Discharge Disposition: Home or Self [...] this encounter Discharge Instructions * Patient Instructions* Beatris Gallegos RN - 04/06/2015 1:56 PM EDITOR PRODUCER [facility] Pain Discharge Instructions Selective [...] headache, or any other problems, please call [phone] or after hours callDr. Mirza at [phone] and tell them your physician's name. The exchange will alert the physician educational technology coordinator. If sedation is given: No sedation given. For Your Next Visit: No additional instructions. Other Instructions: May remove band-aid in 12 Hours. Return next week follow up in 2 weeks. OR PRODUCER documented in this encounter Medications at Time of Discharge Medication Sig Dispensed Refills Start Date End Date Gjndcvkjuwy-Vjrwccykj-Z it C-Mn (GLUCOSAMINE CHONDR 1500 COMPLX PO) [...] 11/05/2014 09/24/2015 documented as of this encounter Procedure Notes * Alejandro Mirza MD - 04/06/2015 2:29 PM CST Lumbar Epudural L5-S1 Chalino Deng Provider: Alejandro Mirza MD 1960 Date: 04/06/2015 Tomas Hyman MD Pt. presents today for an injection. Allergies: Allergies as of 04/06/2015 - reviewed 04/06/2015 Allergen Reaction Noted ??? Plaquenil [hydroxychloroquine sulfate] 05/15/2011 ??? Tuberculin ppd 07/27/2008 Procedure: Epidural injection L5-S1 Diagnosis/Indication:Low back and/or [...] by Dr. Mirza. Pt is not on Coumidin, Plavix or other blood thinners. Responsible mechanic driver is not needed due to the [...] DC to home. Pt survey given. Procedure code: Epi Lum/cad, Flouro Follow Up: 1 week Alejandro Mirza MD OR PRODUCER documented in this encounter Plan of Treatment Upcoming Encounters Date Type Department Care Team (Late st Contact Info) Description 06/03/2024 1:00 PM EDITOR PRODUCER Appointment [facility] - Rheumatology [address] [place] [address] [phone] 06/03/2024 2:00 PM EDITOR PRODUCER Office Visit [facility] - Rheumatology [address] [place] [address] [phone] Gloria Smith MD [address] [place] [phone] documented as of this encounter Visit Diagnoses Not on filedocumented in this encounter Administered Medications Inactive Administered Medications - up to 3 most recent administrations Medication Order MAR Action Action Date Dose Rate Site methylPREDNISolone acetate (DEPO-MEDROL) injection 80 mg 80 mg, Intramuscular, INTRA-PROCEDURE ONCE, 1 dose, On Sun04/06/15 at 1356 $ Admin. by Other Provider 04/06/2015 2:03 PM EDITOR PRODUCER 80 mg Back documented in this encounter Care Teams Barrel Cooper Relationship Specialty Start Date End Date Tomas Hyman MD [address] [facility] [address] [place] [address] PCP - General Family Medicine 12/31/13 05/09/18 Isidro Heredia MD Rheumatology 02/09/11 documented as of this encounter
--- OUTSIDE RECORDS SUMMARY | 2024-05-03 04:11 | XMS_ITS | Encounter Summary ---
Author Organization [facility] Address [address] [facility] [place] [address] Care Team Providers Care Deputy Building Guard Name Role Phone Hitesh Solis MD Unavailable Tomas Hyman MD Primary Care Provider [phone] Reason for Visit * Reason Comments Rheumatoid Arthritis Encounter Details Date Type Department Care Team (Late st Contact Info) Description 06/14/2015 3:30 PM TYPE COPYIST Office Visit [facility] - Rheumatology [address] [place] [address] Hitesh Solis MD [address] [place] [address] Rheumatoid arthritis of multiple sites with negative rheumatoid factor (HCC) (Primary Dx); Chronic pain syndrome; Right lumbar radiculopathy; Rheumatoid [...] Sign Reading Time Taken Comments Blood Pressure 137/84 06/14/2015 3:34 PM TYPE COPYIST Pulse 98 06/14/2015 3:34 PM TYPE COPYIST Temperature - - Respiratory Rate - - Oxygen Saturation - - Inhaled Oxygen Concentration - - Weight - - Height - - Body Mass Index - - documented in this encounter Progress Notes * Hitesh Solis MD - 06/14/2015 3:51 PM CST Subjective: Chalino Deng 54 y.o. male is here for Chief Complaint Patient presents with ??? Rheumatoid Arthritis HPI: On mtx actemra pred 15 mg/d for ra and neurontin percocet skelaxin for chronic pain and lbp caroline phillips for epid nerv injection Pain Level 7/10 hands knees Ankles Am stiffness 2 hrs Global 7/10 Fatigue yes Medication Side Effects no Current Outpatient Prescriptions on File Prior to Visit Medication Sig Dispense Refill ??? naproxen (NAPROSYN) 500 MG tablet TAKE [...] for 30 min 12 Tab 3 ??? aspirin EC (ECOTRIN) 81 MG tablet Take 81 mg by mouth once daily. ??? Magnesium Citrate 100 MG TABS Take by mouth. ??? Multiple Vitamins-Minerals (OCUVITE PO) Take by mouth. ??? Multiple Vitamin (MULTI-VITAMIN PO) Take by mouth once daily. ??? Kwfeifjcdno-Jgqstdbbd-Ylr C-Mn (GLUCOSAMINE CHONDR 1500 COMPLX PO) Take [...] lungs Objective: General Appearance Physical Exam: BP 137/84 mmHg Pulse 98 Head: perrla, eyes no irritation, vision and [...] 8/TJ, 6/SJ, 0/muscle tenderness or weakness LUE: 6/TJ, 2/SJ, 0/muscle tenderness or weakness RLE: 1/TJ, 0/SJ, 0/muscle tenderness or weakness LLE: 1/TJ, 0/SJ, 0/muscle tenderness or weakness Assessment: Encounter Diagnoses Name Primary? Rheumatoid arthritis of multiple sites with negative rheumatoid factor Yes ??? Chronic pain syndrome ??? Right lumbar radiculopathy ??? Rheumatoid arthritis of multiple 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 factor poorly controlled ra Chronic pain and lumbar radiculopathy Same meds Plan: Plan Orders Placed This Encounter ??? oxyCODONE-acetaminophen (PERCOCET) 5-325 MG tablet Sig: Take 1 Tab by mouth every 6 hours as needed for Pain Dx: 714.0 RA Dispense: 120 Tab Refill: 0 ??? pravastatin (PRAVACHOL) 20 MG tablet Sig: Take 1 Tab by mouth once daily Dispense: 30 Tab Refill: 11 ??? carvedilol (COREG) 12.5 MG tablet Sig: Take 1 Tab by mouth 2 times daily with morning and evening meal Dispense: 120 Tab Refill: 11 Follow up in office in 4 weeks documented in this encounter Miscellaneous Notes * Addendum Note - Hitesh Solis MD - 06/14/2015 4:16 PM CSTAddended by: HITESH SOLIS on: 06/14/2015 04:16 PM Modules accepted: Orders COPYIST documented in this encounter Plan of Treatment Upcoming Encounters Date Type Department Care Team (Late st Contact Info) Description 06/03/2024 1:00 PM TYPE COPYIST Appointment [facility] - Rheumatology [address] [place] [address] 06/03/2024 2:00 PM TYPE COPYIST Office Visit [facility] - Rheumatology [address] [place] [phone] Gloria Smith MD [address] [place] [phone] documented as of this encounter Visit Diagnoses Diagnosis Rheumatoid arthritis of 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
--- OUTSIDE RECORDS SUMMARY | 2024-05-03 04:11 | XMS_ITS | Encounter Summary ---
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, multiple sites (HCC) Procedures SC INFLIXIMAB INJECTION SC INJECTION TOCILIZUMAB 1 MG Isidro Heredia MD [address] [place] [address] [address] Referral ID Status Reason Start Date Expiration Date Visits Re quested Visits Authorized [id number] Closed 01/07/2015 01/08/2016 1 12 Encounter Details Date Type Department Care Team (Late st Contact Info) Description 08/16/2015 3:37 PM CDT - 08/16/2015 11:59 PM CDT Hospital Encounter [facility] - Rheumatology [address] [place] [address] Isidro Heredia MD [address] [place] [address] Discharge Disposition: Home or [...] Sign Reading Time Taken Comments Blood Pressure 156/77 08/16/2015 3:52 PM CDT Pulse 80 08/16/2015 3:52 PM CDT Temperature 36.8 ??C (98.3 ??F) 08/16/2015 3:52 PM CD T Respiratory Rate 16 08/16/2015 3:52 PM CDT Oxygen Saturation - - Inhaled Oxygen Concentration - - Weight 115.7 kg (255 lb) 08/16/2015 3:52 PM CDT Height - - Body Mass Index 36.59 07/19/2015 4:42 PM CDT documented in this encounter Discharge Instructions * Discharge Instructions* Jody Sahu RN - 08/16/2015 3:58 PM CDT [place] Rheumatology Post Infusion instructions You have received [...] through Sunday 9-5 call the office at [phone] After hours or on the weekend call the exchange at [phone] If you have had lab work done [...] Sig Dispensed Refills Start Date End Date Rmgmzwxxwtn-Dpynihvol-O it C-Mn (GLUCOSAMINE CHONDR 1500 COMPLX PO) [...] Progress Notes * Jody Sahu RN - 08/16/2015 4:13 PM CDT JOSE Deng [id number] 08/16/2015 Diagnosis: Rheumatoid arthritis without rheumatoid factor, multiple sites [M06.09]. Pt denies symptoms of infection or antibiotic use, no open wounds, or recent surgery, or plans for surgery in the next couple of weeks. Pt is aware that we use the 0-10 pain scale to assess discomfort. 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 front end engineer pt signs consent for treatment for this infusion. BP 156/77 mmHg Pulse 80 Temp(Src) 98.3 ??F Resp 16 Wt 115.667 kg (255 lb) @ MEDICATIONS FOR CURRENT ENCOUNTER: ?? [...] Contact Info) Description 06/03/2024 1:00 PM MANAGER SHAREPOINT Appointment [facility] - Rheumatology [address] [place] [address] 06/03/2024 2:00 PM MANAGER SHAREPOINT Office Visit [facility] - Rheumatology [address] [place] [address] Gloria Smith MD [address] [place] [phone] documented as of this encounter Visit Diagnoses Diagnosis Rheumatoid arthritis of multiple sites with negative rheumatoid factor (HCC) documented in this encounter Administered Medications Inactive Administered Medications - up to 3 most recent administrations Medication Order MAR Action Action Date Dose Rate Site Tocilizumab 800 mg in 0.9% NaCl IVPB 800 mg, at 140 mL/hr, Intravenous, ONCE, 1 dose, On 08/16/15 at 1630, 2 vials Actemra 400mg 0 waste. Stable 24hrs RT $ Given 08/16/2015 4:10 PM CDT 800 mg 140 mL/hr documented in this encounter Care Teams Wire Harness Assembler Relationship Specialty Start Date End Date Tomas Hyman MD [address] [facility] [address] [place] [address] PCP - General Family Medicine 12/31/13 05/09/18 Isidro Heredia MD Rheumatology 02/09/11 documented as of this encounter
--- OUTSIDE RECORDS SUMMARY | 2024-05-03 04:11 | XMS_ITS | Encounter Summary ---
Author Organization [facility] Address [address] [place] [address] Care Team Providers Care Saw Man Name Role Phone Isidro Heredia MD Unavailable [phone] Tomas Hyman MD Primary Care Provider [phone] Reason for Visit * Reason Comments Rheumatoid Arthritis Encounter Details Date Type Department Care Team (Late st Contact Info) Description 08/16/2015 5:15 PM CDT Office Visit [facility] - Rheumatology [address] [place] [address] Isidro Heredia MD [address] [place] [address] Rheumatoid arthritis of multiple sites with negative rheumatoid factor (HCC) (Primary Dx); Chronic pain syndrome; Right lumbar radiculopathy; Triceps tendonitis; Rheumatoid arthritis of multiple 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 [...] Time Taken Comments Blood Pressure 156/77 08/16/2015 4:53 PM CDT Pulse 80 08/16/2015 4:53 PM CDT Temperature - - Respiratory Rate - - Oxygen Saturation - - Inhaled Oxygen Concentration - - Weight 115.7 kg (255 lb) 08/16/2015 4:53 PM CDT Height - - Body Mass Index 36.59 07/19/2015 4:42 PM CDT documented in this encounter Progress Notes * Isidro Heredia MD - 08/16/2015 5:42 PM CDT Subjective: Chalino Deng 54 y.o. male is here for Chief Complaint Patient presents with ??? Rheumatoid Arthritis HPI: On mtx actemra pred 15 mg/d For ra And neurontin percocet skelaxin for chronic pain and lbp and lumbar radiculopathy No recent epid from dr phillips Pain Level 12/07 left shoulder Knees Am stiffness 2 hrs Global 12/07 Fatigue yes Medication Side Effects no Current [...] 1 Tab by mouth once daily ??? Qvzcfuhvqtd-Ttcyyvkbp-Ebu C-Mn (GLUCOSAMINE CHONDR 1500 COMPLX PO) Take [...] lungs Objective: General Appearance Physical Exam: BP 156/77 mmHg Pulse 80 Wt 115.667 kg (255 lb) Head: perrla, eyes no irritation, vision and hearing intact, no oral ulcers, tongue normal, throat clear Neck:supple, no bruits, adenopathy Chest: clear, no rales, rhonchi or wheezes. Heart nsr. No S3,S4, or murmurs Abdomen:soft, no masses or tenderness, no organomegaly Genitalia, Groin, Buttocks: Back: no abnormal curvature, tenderness, or muscle spasm Extremities: No edema, cyanosis, or rash RUE: 6 /TJ, 4/SJ, 0/muscle tenderness or weakness LUE: 4/TJ, 3/SJ, 0/muscle tenderness or weakness RLE: 1/TJ, 0/SJ, 0/muscle tenderness or weakness LLE: 1/TJ, 0/SJ, 0/muscle tenderness or weakness Tender left triceps tendon Assessment: Encounter Diagnoses Name Primary? Rheumatoid arthritis of multiple sites with negative rheumatoid factor Yes ??? Chronic pain syndrome ??? Right lumbar radiculopathy ??? Triceps tendonitis ??? Rheumatoid arthritis of multiple 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 factor poorly controlled triceps tendonitis ra and chronic pain Same meds plus steroid injection left shoulder Under sterile condition, 2 cc's of tac with 1 cc 2% lidocaine were injected in the left shoulder triceps tendon. 0 cc's of synovial fluid were aspirated. Patient tolerated procedure well without complications. Plan: Plan Orders Placed This Encounter ??? TRIAMCINOLON ACETONID NOS 10 MG INJ ??? MT DRAIN/INJECT LARGE JOINT/BURSA ??? oxyCODONE-acetaminophen (PERCOCET) 5-325 MG tablet Sig: Take 1 Tab by mouth every 6 hours as needed for Pain Dx: 714.0 RA Dispense: 120 Tab Refill: 0 ??? triamcinolone acetonide (KENALOG) injection Si mL by Intra-articular route once for 1 dose Dispense: 2 mL Refill: 0 Follow up in office in 4 weeks documented in this encounter Plan of Treatment Upcoming Encounters Date Type Department Care Team (Late st Contact Info) Description 06/03/2024 1:00 PM WORKING SECOND HAND Appointment [facility] - Rheumatology [address] [place] [address] [phone] 06/03/2024 2:00 PM WORKING SECOND HAND Office Visit [facility] - Rheumatology [address] [place] [address] [phone] Gloria Smith MD [address] [place] [phone] documented as of this encounter Visit Diagnoses Diagnosis Rheumatoid arthritis 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)- Primary Chronic pain syndrome Right lumbar radiculopathy Thoracic or lumbosacral neuritis or radiculitis, unspecified Triceps tendonitis Other enthesopathy of elbow region Rheumatoid arthritis of multiple 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 factor (HCC) Rheumatoid arthritis documented in this encounter Administered Medications Administered Medications Medication Order MAR Action Action Date Dose Rate Site Triamcinolone Acetonide Intraarticular Given 08/20/2015 2 mL Left Shoulder documented in this encounter Care Teams Saw Man Relationship Specialty Start Date End Date Tomas Hyman MD [address] [facility] [address] [place] [address] PCP - General Family Medicine 12/31/13 05/09/18 Isidro Heredia MD Rheumatology 02/09/11 documented as of this encounter
--- OUTSIDE RECORDS SUMMARY | 2024-05-03 04:11 | XMS_ITS | Encounter Summary ---
Author Organization [facility] Address [address] [facility] [place] [address] Care Team Providers Care Maori Liaison Adviser Name Role Phone Isidro Heredia MD Unavailable [phone] Tomas Hyman MD Primary Care Provider [phone] Reason for Visit * Treatment (Routine) - Closed Specialty Diagnoses / Procedures Referred By Lawrence shah Referred To Contact Infusion Therapy Nurse Diagnoses Rheumatoid arthritis(714.0) (HCC) Rheumatoid arthritis without rheumatoid factor, multiple sites (HCC) Procedures MT INFLIXIMAB INJECTION MT INJECTION TOCILIZUMAB 1 MG Isidro Heredia MD [address] [place] [address] [phone] Referral ID Status Reason Start Date Expiration Date Visits Re quested Visits Authorized [id number] Closed 01/07/2015 01/08/2016 1 12 Encounter Details Date Type Department Care Team (Late st Contact Info) Description 07/19/2015 4:20 PM CDT - 07/19/2015 11:59 PM CDT Hospital Encounter [facility] - Rheumatology [address] [place] [address] Isidro Heredia MD [address] [place] [address] Discharge Disposition: Home or Self [...] Sign Reading Time Taken Comments Blood Pressure 138/89 07/19/2015 4:42 PM CDT Pulse 89 07/19/2015 4:42 PM CDT Temperature 36.8 ??C (98.2 ??F) 07/19/2015 4:42 PM CD T Respiratory Rate 16 07/19/2015 4:42 PM CDT Oxygen Saturation - - Inhaled Oxygen Concentration - - Weight 114.8 kg (253 lb) 07/19/2015 4:42 PM CDT Height 177.8 cm (5' 10 ) 07/19/2015 4:42 PM CDT Body Mass Index 36.3 07/19/2015 4:42 PM CDT documented in this encounter Discharge Instructions * Discharge Instructions* Jody Sahu RN - 07/19/2015 4:51 PM CDT [place] Rheumatology Post Infusion instructions [...] through Sunday 9-5 call the office at [phone] After hours or on the weekend call the exchange at [phone] If you have had lab work done [...] Sig Dispensed Refills Start Date End Date Cfofqrtgibq-Qsgkrmqnb-B it C-Mn (GLUCOSAMINE CHONDR 1500 COMPLX PO) [...] 30 MINUTES 3 Tab 5 06/17/2015 08/09/2016 alendronate (FOSAMAX) 70 MG tablet Take 1 [...] Pain Dx: 714.0 RA 120 Tab 0 07/19/2015 08/16/2015 pravastatin (PRAVACHOL) 20 MG tablet Take 1 Tab by mouth once daily 30 Tab 11 06/14/2015 11/16/2015 predniSONE (DELTASONE) 10 MG tablet TAKE 1 TABLET BY MOUTH 2 TIMES A DAY 180 Tab 3 11/05/2014 09/24/2015 documented as of this encounter Progress Notes * Jody Sahu RN - 07/19/2015 4:53 PM CDT JOSE Deng [id number] 07/19/2015 Diagnosis: Rheumatoid arthritis without rheumatoid factor, multiple sites [M06.09]. Pt denies symptoms of infection or antibiotic use, no open wounds, or recent surgery, or plans for surgery in the next couple of weeks. Pt is aware that we use the 0-10 pain scale to assess discomfort. 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 manager front pt signs consent for treatment for this infusion. BP 138/89 mmHg Pulse 89 Temp(Src) 98.2 ??F Resp 16 Wt 114.76 kg (253 lb) BMI 36.30 kg/m2 @ MEDICATIONS FOR CURRENT ENCOUNTER: ?? [...] st Contact Info) Description 06/03/2024 1:00 PM NUCLEAR REACTOR OPERATOR Appointment [facility] - Rheumatology [address] [place] [address] [phone] 06/03/2024 2:00 PM NUCLEAR REACTOR OPERATOR Office Visit [facility] - Rheumatology [address] [place] [address] [phone] Gloria Smith MD [address] [place] [phone] documented as of this encounter Visit Diagnoses Diagnosis Rheumatoid arthritis of multiple sites with negative rheumatoid factor (HCC) documented in this encounter Administered Medications Inactive Administered Medications - up to 3 most recent administrations Medication Order MAR Action Action Date Dose Rate Site Tocilizumab 800 mg in 0.9% NaCl IVPB 800 mg, at 140 mL/hr, Intravenous, ONCE, 1 dose, On 07/19/15 at 1700, 2 vials Actemra 400mg 0 waste. Stable 24hrs RT $ Given 07/19/2015 4:50 PM CDT 800 mg 140 mL/hr documented in this encounter Care Teams Maori Liaison Adviser Relationship Specialty Start Date End Date Tomas Hyman MD [address] [facility] [address] [place] [address] PCP - General Family Medicine 12/31/13 05/09/18 Isidro Heredia MD Rheumatology 02/09/11 documented as of this encounter
--- OUTSIDE RECORDS SUMMARY | 2024-05-03 04:11 | XMS_ITS | Encounter Summary ---
Author Organization [facility] Address [address] [facility] [place] [address] Care Team Providers Care Shank Taper Name Role Phone Isidro Heredia MD Unavailable [phone] Tomas Hyman MD Primary Care Provider [phone] Encounter Details Date Type Department Care Team (Latest Contact Info) Description 04/06/2015 1:43 PM MANAGER WINTER - 04/06/2015 11:59 PM MANAGER WINTER Hospital Encounter [facility] Pain Care [address] [place] [address] [place] [address] [place] [phone] Discharge Disposition: Home or Self Care Social [...] Sign Reading Time Taken Comments Blood Pressure 132/87 04/06/2015 2:17 PM MANAGER WINTER Pulse 89 04/06/2015 2:17 PM MANAGER WINTER Temperature - - Respiratory Rate 16 04/06/2015 2:17 PM MANAGER WINTER Oxygen Saturation 98% 04/06/2015 2:17 PM MANAGER WINTER Inhaled Oxygen Concentration - - Weight - - Height - - Body Mass Index - - documented in this encounter Medications at Time of Discharge Medication Sig Dispensed Refills Start Date End Date Hhdudvaeuig-Lleidkbur-Q it C-Mn (GLUCOSAMINE CHONDR 1500 COMPLX PO) [...] Contact Info) Description 06/03/2024 1:00 PM MANAGER WINTER Appointment [facility] - Rheumatology [address] [place] [address] [phone] 06/03/2024 2:00 PM MANAGER WINTER Office Visit [facility] - Rheumatology [address] [place] [address] [phone] Gloria Smith MD [address] [place] [phone] Pending Results Name Type Priority Associated Diagnoses Date /Time PAIN MANAGEMENT PROCEDURE TIME Imaging Routine Displacement of lumbar intervertebral disc without myelopathy Thoracic or lumbosacral neuritis or radiculitis, unspecified 04/06/2015 2:12 PM MANAGER WINTER documented as of this encounter Visit Diagnoses Diagnosis Displacement of lumbar intervertebral disc without myelopathy- Primary documented in this encounter Care Teams Shank Taper Relationship Specialty Start Date End Date Tomas Hyman MD [address] [facility] [address] [place] [address] PCP - General Family Medicine 12/31/13 05/09/18 Isidro Heredia MD Rheumatology 02/09/11 documented as of this encounter
--- OUTSIDE RECORDS SUMMARY | 2024-05-03 04:11 | XMS_ITS | Encounter Summary ---
Author Organization [facility] Address [address] [place] [address] Care Team Providers Care Auto Dismantler Name Role Phone Isidro Heredia MD Unavailable [phone] Tomas Hyman MD Primary Care Provider [phone] Reason for Visit * Treatment (Routine) - Closed Specialty Diagnoses / Procedures Referred By Lawrence shah Referred To Contact Infusion Therapy Nurse Diagnoses Rheumatoid arthritis(714.0) (HCC) Rheumatoid arthritis without rheumatoid factor, multiple sites (HCC) Procedures ND INFLIXIMAB INJECTION ND INJECTION TOCILIZUMAB 1 MG Isidro Heredia MD [address] [place] [address] [phone] Referral ID Status Reason Start Date Expiration Date Visits Re quested Visits Authorized [id number] Closed 01/07/2015 01/08/2016 1 12 Encounter Details Date Type Department Care Team (Late st Contact Info) Description 06/14/2015 3:00 PM METAL BASE BLOCKER - 06/14/2015 11:59 PM METAL BASE BLOCKER Hospital Encounter [facility] Medical [facility] - Rheumatology [address] [place] [address] Isidro Heredia MD [address] [place] [address] Discharge Disposition: Home or Self [...] Time Taken Comments Blood Pressure 137/84 06/14/2015 3:17 PM METAL BASE BLOCKER Pulse 98 06/14/2015 3:17 PM METAL BASE BLOCKER Temperature 36.9 ??C (98.4 ??F) 06/14/2015 3:17 PM CS T Respiratory Rate 16 06/14/2015 3:17 PM METAL BASE BLOCKER Oxygen Saturation - - Inhaled Oxygen Concentration - - Weight - - Height - - Body Mass Index - - documented in this encounter Discharge Instructions * Discharge Instructions* Carlos Foreman RN - 06/14/2015 3:18 PM METAL BASE BLOCKER ME Rheumatology Post Infusion instructions You have [...] through Sunday 9-5 call the office at [phone] After hours or on the weekend call the exchange at [phone] If you have had lab work done [...] Center as your provider. Carlos Foreman RN L BASE BLOCKER documented in this encounter Medications at Time of Discharge Medication Sig Dispensed Refills Start Date End Date Qrmdoajrlul-Kpjdeeowu-B it C-Mn (GLUCOSAMINE CHONDR 1500 COMPLX PO) [...] 07/19/2015 carvedilol (COREG) 12.5 MG tablet Take 1 [...] Pain Dx: 714.0 RA 120 Tab 0 06/14/2015 07/19/2015 pravastatin (PRAVACHOL) 20 MG tablet Take 1 Tab by mouth once daily 30 Tab 11 06/14/2015 11/16/2015 predniSONE (DELTASONE) 10 MG tablet TAKE 1 TABLET BY MOUTH 2 TIMES A DAY 180 Tab 3 11/05/2014 09/24/2015 documented as of this encounter Progress Notes * Carlos Foreman RN - 06/14/2015 3:32 PM CST JOSE Deng [id number] 06/14/2015 Diagnosis: Rheumatoid arthritis without rheumatoid factor, multiple sites [M06.09]. BP 137/84 mmHg Pulse 98 Temp(Src) 98.4 ??F Resp 16 @ MEDICATIONS FOR CURRENT ENCOUNTER: ?? SCHEDULED MEDICATIONS: ?? tocilizumab (ACTEMRA) 800 mg in 0.9% NaCl IVPB, Intravenous, Once ?? CONTINUOUS MEDICATIONS: PRN MEDICATIONS: ?? Number of 24 gauge .75 inch placed in Left forearm ?? 1 attempt(s). Patient monitored throughout procedure. Tolerated well? Yes Next treatment? 4wk Carlos Foreman RN L BASE BLOCKER documented in this encounter Plan of Treatment Upcoming Encounters Date Type Department Care Team (Late st Contact Info) Description 06/03/2024 1:00 PM METAL BASE BLOCKER Appointment [facility] - Rheumatology [address] [place] [address] 06/03/2024 2:00 PM METAL BASE BLOCKER Office Visit [facility] - Rheumatology [address] [place] [address] Gloria Smith MD [address] [place] [phone] documented as of this encounter Visit Diagnoses Diagnosis Rheumatoid arthritis of multiple sites with negative rheumatoid factor (HCC) documented in this encounter Administered Medications Inactive Administered Medications - up to 3 most recent administrations Medication Order MAR Action Action Date Dose Rate Site tocilizumab (ACTEMRA) 800 mg in 0.9% NaCl IVPB 800 mg, at 140 mL/hr, Intravenous, ONCE, 1 dose, On 06/14/15 at 1530, 2 vials Actemra 400mg 0 waste. Stable 24hrs RT $ Given 06/14/2015 3:25 PM METAL BASE BLOCKER 800 mg 140 mL/hr documented in this encounter Care Teams Auto Dismantler Relationship Specialty Start Date End Date Tomas Hyman MD [address] [facility] [address] [place] [address] PCP - General Family Medicine 12/31/13 05/09/18 Isidro Heredia MD Rheumatology 02/09/11 documented as of this encounter
--- OUTSIDE RECORDS SUMMARY | 2024-05-03 04:11 | XMS_ITS | Encounter Summary ---
Author Organization [facility] Address [address] [facility] [place] [address] Care Team Providers Care Treating Plant Operator Name Role Phone Isidro Heredia MD Unavailable Tomas Hyman MD Primary Care Provider [phone] Reason for Visit * Reason Onset Date Comments Appointment 04/20/2015 Encounter Details Date Type Department Care Team (Late st Contact Info) Description 04/20/2015 Telephone [facility] Medical [facility] - Rheumatology [address] [place] [address] Isidro Heredia MD [address] [place] [address] Appointment Social History Tobacco Use Types [...] encounter Miscellaneous Notes * Telephone Encounter - Patricia Bonds - 05/21/2015 7:47 AM CST Infusion scheduled. CTOR FEDERAL * Telephone Encounter - Erika Julien - 05/07/2015 1:12 PM CST Pt is calling back for appt CTOR FEDERAL * Telephone Encounter - Patricia Bonds - 04/20/2015 2:28 PM CST Pt calling to make an appointment for an infusion. The pt states that he would like to see Dr. Heredia at the same time. Please call. CTOR FEDERAL documented in this encounter Plan of Treatment Upcoming Encounters Date Type Department Care Team (Late st Contact Info) Description 06/03/2024 1:00 PM DIRECTOR FEDERAL Appointment [facility] - Rheumatology [address] [place] [address] 06/03/2024 2:00 PM DIRECTOR FEDERAL Office Visit [facility] - Rheumatology [address] [place] [address] Gloria Smith MD [address] [place] [phone] documented as of this encounter Visit Diagnoses Not on filedocumented in this encounter Care Teams Treating Plant Operator Relationship Specialty Start Date End Date Tomas Hyman MD [address] [place] [address] PCP - General Family Medicine 12/31/13 05/09/18 Isidro Heredia MD Rheumatology 02/09/11 documented as of this encounter
--- OUTSIDE RECORDS SUMMARY | 2024-05-03 04:11 | XMS_ITS | Encounter Summary ---
Author Organization [facility] Address [address] [facility] [place] [address] Care Team Providers Care Licensed Occupational Therapy Assistant Name Role Phone Isidro Heredia MD Unavailable [phone] Tomas Hyman MD Primary Care Provider [phone] Reason for Visit * Reason Onset Date Comments MEDICATION REFILL 05/17/2015 Encounter Details Date Type Department Care Team (Late Contact Info) Description 05/17/2015 Refill [facility] - Rheumatology [address] [place] [address] Isidro Heredia MD [address] [place] [address] MEDICATION REFILL Social History Tobacco Use [...] (Late Contact Info) Description 06/03/2024 1:00 PM FLAT SURFACER JEWEL Appointment [facility] - Rheumatology [address] [place] [address] 06/03/2024 2:00 PM FLAT SURFACER JEWEL Office Visit [facility] - Rheumatology [address] [place] [address] Gloria Smith MD [address] [place] [phone] documented as of this encounter Visit Diagnoses Diagnosis Rheumatoid arthritis of multiple 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 factor (HCC)- Primary Rheumatoid arthritis documented in this encounter Care Teams Licensed Occupational Therapy Assistant Relationship Specialty Start Date End Date Tomas Hyman MD [address] [facility] [address] [place] [address] PCP - General Family Medicine 12/31/13 05/09/18 Isidro Heredia MD Rheumatology 02/09/11 documented as of this encounter
--- OUTSIDE RECORDS SUMMARY | 2024-05-03 04:11 | XMS_ITS | Encounter Summary ---
Author Organization [facility] Address [address] [facility] [place] [address] Care Team Providers Care Competitive Shopper Name Role Phone Isidro Heredia MD Unavailable [phone] Tomas Hyman MD Primary Care Provider [phone] Encounter Details Date Type Department Care Team (Late st Contact Info) Description 06/14/2015 Orders Only [facility] Medical [facility] - Rheumatology [address] [place] [address] [phone] Isidro Heredia MD [address] [place] [address] Rheumatoid arthritis of multiple sites with [...] encounter Progress Notes * Vee Hair - 06/21/2015 10:20 AM CSTQuick Note: Patient notified via mychart. ICAL DOCUMENTATION CLERK * Isidro Heredia MD - 06/20/2015 9:14 PM CSTQuick Note: [facility]ol [facility] [address] [place] ICAL DOCUMENTATION CLERK documented in this encounter Plan of Treatment Upcoming Encounters Date Type Department Care Team (Late st Contact Info) Description 06/03/2024 1:00 PM CLINICAL DOCUMENTATION CLERK Appointment [facility] - Rheumatology [address] [place] [address] [phone] 06/03/2024 2:00 PM CLINICAL DOCUMENTATION CLERK Office Visit [facility] - Rheumatology [address] [place] [address] Gloria Smith MD [address] [place] [phone] documented as of this encounter Procedures Procedure Name Priority Date/Time Associated Diagnosis Comments LIPID PROFILE W TCHOL/HDL Routine 06/14/2015 3:00 PM CLINICAL DOCUMENTATION CLERK Rheumatoid arthritis of multiple sites with negative rheumatoid factor (HCC) ERYTHROCYTE SEDIMENTATION RATE Routine 06/14/2015 3:00 PM CLINICAL DOCUMENTATION CLERK Rheumatoid arthritis of multiple sites with negative rheumatoid factor (HCC) CBC W AUTO DIFFERENTIAL Routine 06/14/2015 3:00 PM CLINICAL DOCUMENTATION CLERK Rheumatoid arthritis of multiple sites with negative rheumatoid factor (HCC) COMPREHENSIVE METABOLIC PANEL Routine 06/14/2015 3:00 PM CLINICAL DOCUMENTATION CLERK Rheumatoid arthritis of 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) documented in this encounter Results * (ABNORMAL) LIPID PROFILE W TCHOL/HDL (PO REF LAB) (06/14/2015 3:00 PM CLINICAL DOCUMENTATION CLERK) Cholesterol 202(H) <200 mg/dL [facility] INSURANCE BILL Triglycerides 321(H) <150 mg/dL [facility] INSURANCE BILL HDL Cholesterol 52 >40 mg/dL [facility] INSURANCE BILL VLDL Calculated 64(H) <=30 mg/dL [facility] INSURANCE BILL LDL Calculated 86 <130 mg/dL [facility] INSURANCE BILL Comment:LDL/HDL RATIO BLOOD ([facility]) 1.7 <5.0 Cholesterol/HDL Ratio 3.9 <4.5 [facility] INSURANCE BILL Blood specimen (specimen) BLOOD SPECIMEN / Unknown 06/14/2015 3:00 PM CLINICAL DOCUMENTATION CLERK 06/14/2015 7:27 PM CLINICAL DOCUMENTATION CLERK Narrative Resulting Agency Comment [facility] [address] ??Ziy[place] P[place]NY [phone] Isidro Heredia MD LAB - CHEMISTRY ORD ERABLES [facility] INSURANCE BILL * SED RATE WESTERGREN (06/14/2015 3:00 PM CLINICAL DOCUMENTATION CLERK) Erythrocyte Sedimentation Rate Westergren 4 0 - 20 mm/hr [facility] INSURANCE BILL Blood specimen (specimen) BLOOD SPECIMEN / Unknown 06/14/2015 3:00 PM CLINICAL DOCUMENTATION CLERK 06/14/2015 7:27 PM CLINICAL DOCUMENTATION CLERK Narrative Resulting Agency Comment [facility] [address] ??Ziyad PENNY [phone] Isidro Heredia MD LAB - HEMATOLOGY OR DERABLES [facility] INSURANCE BILL * (ABNORMAL) COMPREHENSIVE METABOLIC PANEL (06/14/2015 3:00 PM CLINICAL DOCUMENTATION CLERK) Glucose 110(H) 74 - 106 mg/dL [facility] INSURANCE BILL BUN 17 7 - 21 mg/dL [facility] INSURANCE BILL Creatinine 1.20 0.50 - 1.30 mg/dL [facility] INSURANCE BILL eGFR by MDRD >60 >60 mL/min/1.7 3m2 [facility] INSURANCE BILL eGFR by MDRD >60 >60 mL/min/1.7 3m2 [facility] INSURANCE BILL Sodium 141 136 - 145 mmol/L [facility] INSURANCE BILL Potassium 4.1 3.5 - 5.1 mmol/L [facility] INSURANCE BILL Chloride 108(H) 98 - 107 mmol/L [facility] INSURANCE BILL CO2 23 22 - 31 mmol/L [facility] INSURANCE BILL Calcium 8.7 8.5 - 10.1 mg/dL [facility] INSURANCE BILL Protein Total 6.3(L) 6.4 - 8.2 gm/dL [facility] INSURANCE BILL Albumin 3.9 3.4 - 5.0 gm/dL [facility] INSURANCE BILL Bilirubin Total 0.5 0.2 - 1.0 mg/dL [facility] INSURANCE BILL Alkaline Phosphatase 46 38 - 126 U/L [facility] INSURANCE BILL AST 17 5 - 40 U/L [facility] INSURANCE BILL ALT 29 12 - 78 U/L [facility] INSURANCE BILL Blood specimen (specimen) BLOOD SPECIMEN / Unknown 06/14/2015 3:00 PM CLINICAL DOCUMENTATION CLERK 06/14/2015 7:27 PM CLINICAL DOCUMENTATION CLERK Narrative Resulting Agency Comment [facility] [address] [facility] ??[facility] [phone] Isidro Heredia MD LAB - CHEMISTRY ORD ERABLES [facility] INSURANCE BILL * (ABNORMAL) CBC W AUTO DIFFERENTIAL (06/14/2015 3:00 PM CLINICAL DOCUMENTATION CLERK) WBC 7.5 4.4 - 10.7 x10E9/L [facility] INSURANCE BILL RBC 4.03 3.80 - 5.40 x10E12/L [facility] INSURANCE BILL Hemoglobin 12.4 12.0 - 17.6 gm/dL [facility] INSURANCE BILL Hematocrit 39.0 35.2 - 51.7 % [facility] INSURANCE BILL MCV 96.8 80.7 - 98.3 fL [facility] INSURANCE BILL MCH 30.8 26.7 - 34.0 pg [facility] INSURANCE BILL MCHC 31.8 30.8 - 35.9 gm/dL [facility] INSURANCE BILL RDW 13.5 12.1 - 14.9 % [facility] INSURANCE BILL Platelet Count 143(L) 153 - 416 x10E9/L [facility] INSURANCE BILL Comment:MPV FL BLOOD (SSM) 1 3.0 fl 9.4-12.9 H Granulocytes % 67.9 44.0 - 73.0 % [facility] INSURANCE BILL Lymphocytes % 22.5 20.0 - 43.0 % [facility] INSURANCE BILL Monocytes % 7.6 5.0 - 13.0 % [facility] INSURANCE BILL Eosinophils % 0.9 0.0 - 6.0 % [facility] INSURANCE BILL Basophils % 0.7 0.0 - 2.0 % [facility] INSURANCE BILL Granulocytes Absolute 5.10 2.01 - 7.14 x10E9/L [facility] INSURANCE BILL Lymphocytes Absolute 1.69 1.07 - 3.94 x10E9/L [facility] INSURANCE BILL Monocytes Absolute 0.57 0.26 - 1.07 x10E9/L [facility] INSURANCE BILL Eosinophils Absolute 0.07 0 - 0.47 x10E9/L [facility] INSURANCE BILL Basophils Absolute 0.05 0 - 0.08 x10E9/L [facility] INSURANCE BILL Immature Granulocytes 0.4 0 - 1 % [facility] INSURANCE BILL Immature Granulocytes Absolute 0.03 0.00 - 0.06 x10E9/L [facility] INSURANCE BILL nRBC 0 /100 WBC [facility] INSURANCE BILL Blood specimen (specimen) BLOOD SPECIMEN / Unknown 06/14/2015 3:00 PM CLINICAL DOCUMENTATION CLERK 06/14/2015 7:27 PM CLINICAL DOCUMENTATION CLERK Narrative Resulting Agency Comment [facility] [address] [facility] ??[place] [phone] Isidro Heredia MD LAB - HEMATOLOGY OR DERABLES [facility] INSURANCE BILL documented in this encounter Visit Diagnoses Diagnosis Rheumatoid arthritis of multiple sites with negative rheumatoid factor (HCC)- Primary documented in this encounter Care Teams Competitive Shopper Relationship Specialty Start Date End Date Tomas Hyman MD [address] [place] [address] PCP - General Family Medicine 12/31/13 05/09/18 Isidro Heredia MD Rheumatology 02/09/11 documented as of this encounter
--- OUTSIDE RECORDS SUMMARY | 2024-05-03 04:12 | XMS_ITS | Encounter Summary ---
Author Organization [facility] Address [address] [facility] [place] [address] Care Team Providers Care Ship Carpenter Name Role Phone Isidro Heredia MD Unavailable [phone] Tomas Hyman MD Primary Care Provider [phone] Reason for Visit * Reason Onset Date Comments Forms 06/24/2014 Encounter Details Date Type Department Care Team (Late st Contact Info) Description 06/24/2014 Telephone [facility] Medical [facility] - Rheumatology [address] [place] [address] [phone] Isidro Heredia MD [address] [place] [address] Forms Social History Tobacco Use Types Packs/Day Years [...] encounter Miscellaneous Notes * Telephone Encounter - Rea Hagan MA - 06/25/2014 12:21 PM CST Sent a message through my-chart and explaining that FMLa are done on Fridays. I will try to completed his then and if I had any questions I will give him a call as well. I will call him once completed. 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 CASTING MACHINE SETTER documented in this encounter Plan of Treatment Upcoming Encounters Date Type Department Care Team (Late st Contact Info) Description 06/03/2024 1:00 PM DIE CASTING MACHINE SETTER Appointment [facility] - Rheumatology [address] [place] [address] [phone] 06/03/2024 2:00 PM DIE CASTING MACHINE SETTER Office Visit [facility] - Rheumatology [address] [place] [address] Gloria Smith MD [address] [place] [phone] documented as of this encounter Visit Diagnoses Not on filedocumented in this encounter Care Teams Ship Carpenter Relationship Specialty Start Date End Date Tomas Hyamn MD [address] [place] [address] PCP - General Family Medicine 12/31/13 05/09/18 Isidro Heredia MD Rheumatology 02/09/11 documented as of this encounter
--- OUTSIDE RECORDS SUMMARY | 2024-05-03 04:12 | XMS_ITS | Encounter Summary ---
Author Organization [facility] Address [address] [place] [address] Care Team Providers Care Finance Advisor Name Role Phone Isidro Heredia MD Unavailable [phone] Tomas Hyman MD Primary Care Provider [phone] Reason for Visit * Treatment (Routine) - Closed Specialty Diagnoses / Procedures Referred By Contsarahi t Referred To Contact Pain Management Diagnoses Displacement of lumbar intervertebral disc without myelopathy Thoracic or lumbosacral neuritis or radiculitis, unspecified Procedures OK INJ,FORAMEN,L/S,1 LEVEL OK INJ,FORAMEN,L/S,[place] [id number] [address] [facility] [address] [place] [address] Referral ID Status Reason Start Date Expiration Date Visits Re quested Visits Authorized [id number] Closed 03/10/2014 09/06/2014 6 6 Encounter Details Date Type Department Care Team (Latest Contact Info) Description 04/28/2014 9:57 AM OPERATIONS ENGINEER Hospital Encounter [facility] [address] [place] [address] [place] [id number] [address] Discharge Disposition: Home or Self [...] Sig Dispensed Refills Start Date End Date Hlnwzmekvfx-Yoyrwwvnk-Pq t C-Mn (GLUCOSAMINE CHONDR 1500 COMPLX PO) Take 1 Tab by mouth once daily Magnesium Citrate 100 MG TABS Take 1 (one) tablet by mouth every other day Multiple Vitamin (MULTI-VITAMIN PO) Take 1 Tab by mouth once daily ZYRTEC 10 MG TABS Take 1 (one) tablet by mouth once daily Seasonal (nov esomeprazole (NEXIUM) 40 MG capsule Take 1 Cap by mouth daily before breakfast. 90 Cap 3 01/14/2014 11/05/2014 fish oil/omega-3 fatty acids (FISH OIL) 1000 MG capsule Take 1,000 mg by mouth 2 times daily. 01/07/2015 gabapentin (NEURONTIN) 300 MG capsule Take 300 mg by mouth once. 11/05/2014 metaxalone (SKELAXIN) 800 MG tablet Take 1 Tab by mouth 3 times daily. 270 Tab 3 11/12/2013 09/12/2014 methotrexate 2.5 MG tablet TAKE 6 TABLETS EVERY 7 DAYS 72 Tab 3 01/25/2014 11/25/2014 Multiple Vitamins-Minerals (OCUVITE PO) Take 1 Tab by mouth once daily 10/24/2017 naproxen (NAPROSYN) 500 MG tablet Take 1 Tab by mouth 2 times daily. 180 Tab 3 08/19/2012 06/08/2014 oxyCODONE-acetaminophen (PERCOCET) 5-325 MG tabletIndications:Rheuma toid arthritis(714.0) ([facility]) Take 1 Tab by mouth every 6 hours as needed for Pain. 120 Tab 0 04/10/2014 05/22/2014 predniSONE (DELTASONE) 10 MG tablet TAKE 1 TABLET BY MOUTH 2 TIMES A DAY 180 Tab 3 07/17/2013 11/05/2014 risedronate Sodium (ACTONEL) 150 MG tablet Take 1 Tab by mouth every 30 days. 3 Tab 3 05/12/2013 06/08/2014 tamsulosin CR 24hr (FLOMAX) 0.4 MG capsule Take 1 Cap by mouth once daily. Take 30 minutes after a meal at the same time each day. 30 Cap 5 11/11/2012 08/12/2014 tocilizumab 20 MG/ML in 0.9% NaCl 0.9 % 100 mLIndications:Rheumatoid arthritis(714.0) (HCC) Pt to receive IV infusion 800mg Actemra/100cc0.9%norm al saline, per nasir Avila's office practice of Actemra 8mg/kg over 60 minutes and the Actemra schedule; first dose, then every 4 weeks thereafter, unless further orders received from . Exp 09/04/2014 09/04/2013 09/04/2014 documented as of this encounter Plan of Treatment Upcoming Encounters Date Type Department Care Team (Late st Contact Info) Description 06/03/2024 1:00 PM OPERATIONS ENGINEER Appointment [facility] - Rheumatology [address] [place] [address] [phone] 06/03/2024 2:00 PM OPERATIONS ENGINEER Office Visit [facility] - Rheumatology [address] [place] [address] [phone] Gloria Smith MD [address] [place] [phone] documented as of this encounter Visit Diagnoses Not on filedocumented in this encounter Care Teams Finance Advisor Relationship Specialty Start Date End Date Tomas Hyman MD [address] [facility] [address] [place] [address] PCP - General Family Medicine 12/31/13 05/09/18 Isidro Heredia MD Rheumatology 02/09/11 documented as of this encounter
--- OUTSIDE RECORDS SUMMARY | 2024-05-03 04:12 | XMS_ITS | Encounter Summary ---
Author Organization [facility] Address [address] [facility] [place] [address] Care Team Providers Care Osteopathic Resident Name Role Phone Isidro Heredia MD Unavailable [phone] Tomas Hyman MD Primary Care Provider [phone] Encounter Details Date Type Department Care Team (Latest Contact Info) Description 03/17/2014 9:10 AM FIRE PREVENTION CAPTAIN - 03/17/2014 11:59 PM FIRE PREVENTION CAPTAIN Hospital Encounter [facility] [address] [place] [address] [place] [address] [place] [phone] Discharge Disposition: Home or Self Care Social [...] Sign Reading Time Taken Comments Blood Pressure 148/91 03/17/2014 9:46 AM FIRE PREVENTION CAPTAIN Pulse 87 03/17/2014 9:46 AM FIRE PREVENTION CAPTAIN Temperature - - Respiratory Rate 16 03/17/2014 9:46 AM FIRE PREVENTION CAPTAIN Oxygen Saturation 96% 03/17/2014 9:46 AM FIRE PREVENTION CAPTAIN Inhaled Oxygen Concentration - - Weight - - Height - - Body Mass Index - - documented in this encounter Discharge Instructions * Patient Instructions* Nena Pond RN - 03/17/2014 9:20 AM FIRE PREVENTION CAPTAIN [facility] Pain Discharge Instructions Selective Epidural [...] headache, or any other problems, please call [phone] or after hours callDr. Mirza at [phone] and tell them your physician's name. The exchange will alert the physician magnetic resonance technologist. If sedation is given: No sedation given. For Your Next Visit: No additional instructions. Other Instructions: May remove band-aid in 12 Hours. Return in one week for TFE #3. Patient Signature: Date: RN Signature: Date: PREVENTION CAPTAIN documented in this encounter Medications at Time of Discharge Medication Sig Dispensed Refills Start Date End Date Fqokudmlabl-Uncsxbboq-Ly t C-Mn (GLUCOSAMINE CHONDR 1500 COMPLX PO) [...] oxyCODONE-acetaminophen (PERCOCET) 5-325 MG tabletIndications:Rheuma toid arthritis(714.0) ([facility]) Take 1 Tab by mouth every 6 hours as needed for Pain. 120 Tab 0 03/12/2014 04/10/2014 predniSONE (DELTASONE) 10 MG tablet TAKE 1 [...] 09/04/2013 09/04/2014 documented as of this encounter Procedure Notes * Alejandro Mirza MD - 03/17/2014 10:14 AM CSTAssociated Order(s): PAIN MANAGEMENT PROCEDURE TIME Right L5 & S1 Transforaminal Epidural Injection Chalino Deng Provider: Alejandro Mirza MD 1960 Date: 03/17/2014 Tomas Hyman Allergies: Allergies as of 03/17/2014 - reviewed 03/17/2014 Allergen Reaction Noted ??? Plaquenil [hydroxychloroquine sulfate] 05/15/2011 ??? Tuberculin ppd 07/27/2008 Procedure: TFE Right L5 & S1 Diagnosis/Indication::Lumbar Transforaminal epidural injection 722.10 Indication for Procedure: Intractable radicular pain of [...] identified, and marked by Dr. Mirza. Responsible pick up truck driver is not needed due to [...] injected: Right L5 & S1. Total Lidocaine: !%; 6 ml Dexamethasone 10mg The patient tolerated the procedure well and [...] Add Levels Lumb/Sac, Fluoro. Alejandro Mirza MD PREVENTION CAPTAIN documented in this encounter Plan of Treatment Upcoming Encounters Date Type Department Care Team (Late st Contact Info) Description 06/03/2024 1:00 PM FIRE PREVENTION CAPTAIN Appointment [facility] - Rheumatology [address] [place] [address] [phone] 06/03/2024 2:00 PM FIRE PREVENTION CAPTAIN Office Visit [facility] - Rheumatology [address] [place] [address] Gloria Smith MD [address] [place] [phone] documented as of this encounter Procedures Procedure Name Priority Date/Time Associated Diagnosis Comments PAIN MANAGEMENT PROCEDURE TIME Routine 03/17/2014 9:43 AM FIRE PREVENTION CAPTAIN Displacement Of Lumbar Intervertebral Disc Without Myelopathy Thoracic or lumbosacral neuritis or radiculitis, unspecified documented in this encounter Results * PAIN MANAGEMENT PROCEDURE TIME (03/17/2014 9:43 AM FIRE PREVENTION CAPTAIN) Anatomical Region Laterality Modality X-Ray Angiograph y Narrative 03/17/2014 10:14 AM FIRE PREVENTION CAPTAIN Alejandro Mirza MD ? 03/17/2014 10:14 AM Right L5 & S1 Transforaminal Epidural Injection Chalino Deng ? Provider: Alejandro Mirza MD 1960 ? Date: 03/17/2014 ?? Tomas Hyman Allergies: ?? Allergies as of 03/17/2014 - reviewed 03/17/2014 Allergen Reaction Noted ? ? Plaquenil [hydroxychloroquine sulfate] ??05/15/2011 ? ? Tuberculin ppd ??07/27/2008 Procedure: TFE ??Right L5 & S1 Diagnosis/Indication::Lumbar Transforaminal epidural injection ?? 722.10 Indication for Procedure: Intractable radicular pain of [...] identified, and marked by Dr. Mirza. ??Responsible pick up truck driver is not needed due to [...] injected: Right L5 & S1. Total Lidocaine: !%; 6 ml Dexamethasone 10mg ? The patient tolerated the procedure well [...] documented in this encounter Visit Diagnoses Diagnosis Displacement of lumbar intervertebral disc without myelopathy Thoracic or lumbosacral neuritis or radiculitis, unspecified documented in this encounter Administered Medications Inactive Administered Medications - up to 3 most recent administrations Medication Order MAR Action Action Date Dose Rate Site dexamethasone (DECADRON) injection 10 mg 10 mg, Intravenous, ONCE, 1 dose, On Sun03/17/14 at 0945 $ Admin. by Other Provider 03/17/2014 9:34 AM FIRE PREVENTION CAPTAIN 10 mg lidocaine (XYLOCAINE MPF) 1 % injection Infiltration, ONCE, 1 dose, On Sun03/17/14 at 0945 $ Admin. by Other Provider 03/17/2014 9:34 AM FIRE PREVENTION CAPTAIN 5 mL documented in this encounter Care Teams Osteopathic Resident Relationship Specialty Start Date End Date Tomas Hyman MD [address] [place] [address] PCP - General Family Medicine 12/31/13 05/09/18 Isidro Heredia MD Rheumatology 02/09/11 documented as of this encounter
--- OUTSIDE RECORDS SUMMARY | 2024-05-03 04:12 | XMS_ITS | Encounter Summary ---
Author Organization [facility] Address [address] [facility] [place] [address] Care Team Providers Care Fashion Stylist Name Role Phone Isidro Heredia MD Unavailable [phone] Tomas Hyman MD Primary Care Provider Reason for Visit * Reason Comments Follow-up RA * Evaluate & Treat (Routine) - Closed Specialty Diagnoses / Procedures Referred By Lawrence t Referred To Contact Diagnoses Rheumatoid arthritis(714.0) (HCC) Procedures [place] OFFICE/OUTPT VISIT,EST,JULITO I Tomas Hyman MD [address] [place] [address] Isidro Heredia MD [address] [place] [address] Referral ID Status Reason Start Date Expiration Date Visits Re quested Visits Authorized [id number] Closed 09/09/2014 03/08/2015 5 5 Encounter Details Date Type Department Care Team (Late st Contact Info) Description 12/03/2014 2:00 PM CDT [facility] Visit [facility] - Rheumatology [address] [place] [address] Isidro Heredia MD [address] [place] [id number] Rheumatoid arthritis(714.0) (HCC) (Primary Dx); Chronic [...] Sign Reading Time Taken Comments Blood Pressure 122/72 12/03/2014 2:39 PM CDT Pulse 72 12/03/2014 2:39 PM CDT Temperature - - Respiratory Rate - - Oxygen Saturation - - Inhaled Oxygen Concentration - - Weight 114.3 kg (252 lb) 12/03/2014 2:39 PM CDT Height - - Body Mass Index 36.16 11/05/2014 3:03 PM CDT documented in this encounter Progress Notes * Isidro Heredia MD - 12/03/2014 2:50 PM CDT Subjective: Chalino Deng 54 y.o. male is here for Chief Complaint Patient presents with ??? Follow-up RA HPI: On mtx actemra pred 10am 5 pm for ra and neurontin skelaxin and percocet for chronic pain Pain Level 8/10 hands rightarm knees ankles Am stiffness 2 hrs Global 9/10 Fatigue [...] Vitamins-Minerals (OCUVITE PO) Take by mouth. ??? fish oil/omega-3 fatty acids (FISH OIL) 1000 MG capsule Take 1,000 mg by mouth 2 times daily. ??? Multiple Vitamin (MULTI-VITAMIN PO) Take by mouth once daily. ??? Bukeyuozdgx-Bxgdinkve-Sgi C-Mn (GLUCOSAMINE CHONDR 1500 COMPLX PO) Take [...] lungs Objective: General Appearance Physical Exam: BP 122/72 mmHg Pulse 72 Wt 114.306 kg (252 lb) Head: perrla, eyes no irritation, vision [...] Rheumatoid arthritis(714.0) Yes ??? Chronic pain syndrome poorly controlled ra and chronic pain same meds Plan: Plan Orders Placed This Encounter ??? oxyCODONE-acetaminophen (PERCOCET) 5-325 MG tablet Sig: Take 1 Tab by mouth every 6 hours as needed for Pain Dx: 714.0 RA Dispense: 120 Tab Refill: 0 ??? gabapentin (NEURONTIN) 300 MG capsule Sig: Take 1 Cap by mouth 2 times daily Dispense: 180 Cap Refill: 1 Follow up in office in 4 weeks documented in this encounter Plan of Treatment Upcoming Encounters Date Type Department Care Team (Late st Contact Info) Description 06/03/2024 1:00 PM DEAN OF ADMISSIONS Appointment [facility] - Rheumatology [address] [place] [address] 06/03/2024 2:00 PM DEAN OF ADMISSIONS Office Visit [facility] - Rheumatology [address] [place] [address] Gloria Smith MD [address] [place] [phone] documented as of this encounter Visit Diagnoses Diagnosis Rheumatoid arthritis(714.0) ([facility])- Primary Rheumatoid arthritis Chronic pain syndrome documented in this encounter Care Teams Fashion Stylist Relationship Specialty Start Date End Date Tomas Hyman MD [address] [place] [address] PCP - General Family Medicine 12/31/13 05/09/18 Isidro Heredia MD Rheumatology 02/09/11 documented as of this encounter
--- OUTSIDE RECORDS SUMMARY | 2024-05-03 04:12 | XMS_ITS | Encounter Summary ---
Author Organization [facility] Address [address] [facility] [place] [address] Care Team Providers Care Rotary Envelope Machine Operator Name Role Phone Isidro Heredia MD Unavailable [phone] Tomas Hyman MD Primary Care Provider [phone] Reason for Visit * Oncology Prior Authorization - Closed Specialty Diagnoses / Procedures Referred By Contsarahi t Referred To Contact Infusion Therapy Nurse Diagnoses Rheumatoid arthritis(714.0) ([facility]) Procedures NC INJECTION TOCILIZUMAB 1 MG Isidro Heredia MD [address] [place] [address] [phone] Referral ID Status Reason Start Date Expiration Date Visits Re quested Visits Authorized [id number] Closed 05/01/2013 04/29/2014 1 12 Encounter Details Date Type Department Care Team (Late st Contact Info) Description 04/10/2014 12:17 PM PIG MACHINE SUPERVISOR - 04/10/2014 11:59 PM PIG MACHINE SUPERVISOR Hospital Encounter [facility] Medical [facility] - Rheumatology [address] [place] [address] Isidro Heredia MD [address] [place] [address] Discharge Disposition: Home or Self [...] Sign Reading Time Taken Comments Blood Pressure 149/87 04/10/2014 1:42 PM PIG MACHINE SUPERVISOR Pulse 112 04/10/2014 1:42 PM PIG MACHINE SUPERVISOR Temperature 37.2 ??C (98.9 ??F) 04/10/2014 1:42 PM CS T Respiratory Rate 18 04/10/2014 1:42 PM PIG MACHINE SUPERVISOR Oxygen Saturation - - Inhaled Oxygen Concentration - - Weight - - Height - - Body Mass Index - - documented in this encounter Discharge Instructions * Discharge Instructions* Magnolia Pruett RN - 04/10/2014 1:52 PM PIG MACHINE SUPERVISOR NE Rheumatology Post Infusion instructions You have received [...] through Sunday 9-5 call the office at [phone] After hours or on the weekend call the exchange at [phone] If you have had lab work done [...] [facility] as your provider. Magnolia Pruett, RN MACHINE SUPERVISOR documented in this encounter Medications at Time of Discharge Medication Sig Dispensed Refills Start Date End Date Ngqpkpoyqep-Wafrpgpen-Zl t C-Mn (GLUCOSAMINE CHONDR 1500 COMPLX PO) [...] tabletIndications:Rheuma toid arthritis(714.0) ([facility]) Take 1 Tab by mouth every 6 [...] 09/04/2013 09/04/2014 documented as of this encounter Progress Notes * Magnolia Pruett RN - 04/10/2014 1:53 PM CST JOSE Chalino Deng [id number] 04/10/2014 Diagnosis: Rheumatoid arthritis [714.0]. Pt denies symptoms of infection or antibiotic use, no open wounds, or recent surgery, or plans for surgery in the next couple of weeks. Pt is aware that we use the 0-10 pain scale to assess discomfort. 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 java front end web developer pt signs consent for treatment for this infusion. BP 149/87 Pulse 112 Temp(Src) 98.9 ??F Resp 18 @ MEDICATIONS FOR CURRENT ENCOUNTER: ?? SCHEDULED MEDICATIONS: ?? Tocilizumab 800 mg in 0.9% NaCl IVPB, Intravenous, Once ?? Number of 24 gauge 1 inch placed in Right hand ?? 1 attempt(s). Patient monitored throughout procedure. Tolerated well? Yes Next treatment? 4 wks Magnolia Pruett RN MACHINE SUPERVISOR documented in this encounter Plan of Treatment Upcoming Encounters Date Type Department Care Team (Late st Contact Info) Description 06/03/2024 1:00 PM PIG MACHINE SUPERVISOR Appointment [facility] - Rheumatology [address] [place] [address] 06/03/2024 2:00 PM PIG MACHINE SUPERVISOR Office Visit [facility] - Rheumatology [address] [place] [address] Gloria Smith MD [address] [place] [phone] documented as of this encounter Visit Diagnoses Diagnosis Rheumatoid arthritis(714.0) (HCC) Rheumatoid arthritis documented in this encounter Administered Medications Inactive Administered Medications - up to 3 most recent administrations Medication Order MAR Action Action Date Dose Rate Site Tocilizumab 800 mg in 0.9% NaCl IVPB 800 mg, at 140 mL/hr, Intravenous, ONCE, 1 dose, On Sun04/10/14 at 1230, 2 vials used of Actemra 400MG [facility] [id number] with 0 WASTE $ Given 04/10/2014 1:51 PM PIG MACHINE SUPERVISOR 800 mg 140 m L/hr documented in this encounter Care Teams Rotary Envelope Machine Operator Relationship Specialty Start Date End Date Tomas Hyman MD [address] [place] [address] PCP - General Family Medicine 12/31/13 05/09/18 Isidro Heredia MD Rheumatology 02/09/11 documented as of this encounter
--- OUTSIDE RECORDS SUMMARY | 2024-05-03 04:12 | XMS_ITS | Encounter Summary ---
Author Organization [facility] Address [address] [facility] [place] [address] Care Team Providers Care Wheel Loader Operator Name Role Phone Isidro Heredia MD Unavailable Tomas Hyman MD Primary Care Provider Reason for Referral * Procedure - Closed Specialty Diagnoses / Procedures Referred By Contac t Referred To Contact Cardiology Diagnoses Tachycardia Procedures EKG 12-LEAD Isidro Heredia MD [address] [place] [address] Referral ID Status Reason Start Date Expiration Date Visits Re quested Visits Authorized [id number] Closed 05/26/2014 11/22/2014 1 1 NIC SECTION TECHNICAL LEAD Reason for Visit * Reason Comments Rheumatoid Arthritis Pain Joint rt shoulder pain- wa nts cortisone injection, hand, wist, ankle pain * Evaluate & Treat (Routine) - Closed Specialty Diagnoses / Procedures Referred By Contsarahi t Referred To Contact Diagnoses Rheumatoid arthritis(714.0) ([facility]) Procedures [place] OFFICE VISIT DURING HOURS Tomas Hyman MD [address] [place] [address] Isidro Heredia MD [address] [place] [address] Referral ID Status Reason Start Date Expiration Date Visits Re quested Visits Authorized [id number] Closed 02/10/2014 02/10/2015 6 6 Encounter Details Date Type Department Care Team (Late st Contact Info) Description 05/22/2014 12:00 PM ORGANIC SECTION TECHNICAL LEAD Office Visit [facility] - Rheumatology [address] [place] [phone] Isidro Heredia MD [address] [facility] [place] [address] Rheumatoid arthritis (HCC) (Primary Dx); Chronic pain syndrome; Lumbar radiculopathy; Triceps tendonitis; Tachycardia Social History Tobacco Use Types Packs/Day Years [...] Sign Reading Time Taken Comments Blood Pressure 102/94 05/22/2014 12:35 PM ORGANIC SECTION TECHNICAL LEAD Pulse - - Temperature - - Respiratory Rate - - Oxygen Saturation - - Inhaled Oxygen Concentration - - Weight 115.7 kg (255 lb) 05/22/2014 12:35 PM ORGANIC SECTION TECHNICAL LEAD Height - - Body Mass Index 36.59 05/11/2014 9:22 AM ORGANIC SECTION TECHNICAL LEAD documented in this encounter Progress Notes * Isidro Heredia MD - 05/22/2014 1:19 PM CST Subjective: Chalino Deng 53 y.o. male is here for Chief Complaint Patient presents with ??? Rheumatoid Arthritis ??? Pain Joint rt shoulder pain- wants cortisone injection, hand, wist, ankle pain HPI: On actemra And naprosyn for ra and percocet for chronic pain His radiculopathy is better after 5 epid nerve injections he still has lbp worse with standing walking He had diarrhea for 2 days Pain Level 9/10 ankles r shoulder hands wrists Am stiffness 1 hr Global 8/10 Fatigue yes Medication Side Effects no Went to work for 4 hrs Last week and he was miserable afterwards At home he exercises and rests\ His chest feels heavy Current Outpatient Prescriptions on File Prior to Visit Medication Sig Dispense Refill ??? gabapentin (NEURONTIN) 300 MG capsule Take 300 mg by mouth once. ??? methotrexate 2.5 MG tablet TAKE 6 TABLETS EVERY 7 DAYS 72 Tab 3 ??? esomeprazole (NEXIUM) 40 MG capsule Take 1 Cap by mouth daily before breakfast. 90 Cap 3 ??? Magnesium Citrate 100 MG TABS Take by mouth. ??? Multiple Vitamins-Minerals (OCUVITE PO) Take by mouth. ??? metaxalone (SKELAXIN) 800 MG tablet Take 1 Tab by mouth 3 times daily. 270 Tab 3 ??? tocilizumab 20 MG/ML in 0.9% NaCl 0.9 % 100 mL Pt to receive IV infusion 800mg Actemra/100cc0.9%normal saline, per nasir Avila's office practice of Actemra 8mg/kg over 60 minutes and the Actemra schedule; first dose, then every 4 weeks thereafter, unless further orders received from . Exp 09/04/2014 ??? predniSONE (DELTASONE) 10 MG tablet TAKE 1 TABLET BY MOUTH 2 TIMES A DAY 180 Tab 3 ??? risedronate Sodium (ACTONEL) 150 MG tablet Take 1 Tab by mouth every 30 days. 3 Tab 3 ??? tamsulosin CR 24hr (FLOMAX) 0.4 MG capsule Take 1 Cap by mouth once daily. Take 30 minutes after a meal at the same time each day. 30 Cap 5 ??? naproxen (NAPROSYN) 500 MG tablet Take 1 Tab by mouth 2 times daily. 180 Tab 3 ??? fish oil/omega-3 fatty acids (FISH OIL) 1000 MG capsule Take 1,000 mg by mouth 2 times daily. ??? Multiple Vitamin (MULTI-VITAMIN PO) Take by mouth once daily. ??? Qubrxgugbnw-Iiqtihill-Wgs C-Mn (GLUCOSAMINE CHONDR 1500 COMPLX PO) Take by mouth once daily. ??? ZYRTEC 10 MG TABS Take 10 mg by mouth once daily. Seasonal (nov. No current facility-administered medications on file prior to visit. Patient Active Problem List Diagnosis ??? Rheumatoid Arthritis ??? GERD (Gastroesophageal Reflux Disease) ??? Osteopenia [...] lungs Objective: General Appearance Physical Exam: BP 102/94 Wt 115.667 kg (255 lb) Head: perrla, [...] No edema, cyanosis, or rash RUE: 13/TJ, 8/SJ, 0/muscle tenderness or weakness LUE: 13/TJ, 7/SJ, 0/muscle tenderness or weakness RLE: 1/TJ, 1/SJ, 0/muscle tenderness or weakness LLE: 1/TJ, 1/SJ, 0muscle tenderness or weakness Painful abduction r shoulder and tender triceps trendon Assessment: Encounter Diagnoses Name Primary? Rheumatoid arthritis Yes ??? Chronic pain syndrome ??? Lumbar radiculopathy ??? Triceps tendonitis poorly controlled ra chronic pain and triceps Tendon Same meds And local steroid shot for tendonitis Plan: Plan Orders Placed This Encounter ??? TRIAMCINOLON ACETONID NOS 10 MG INJ ??? [place] DRAIN/INJECT LARGE JOINT/BURSA ??? oxyCODONE-acetaminophen (PERCOCET) 5-325 MG tablet Sig: Take 1 Tab by mouth every 6 hours as needed for Pain. Dispense: 120 Tab Refill: 0 ??? triamcinolone acetonide (KENALOG) injection Si mL by Intra-articular route once for 1 dose. Dispense: 2 mL Refill: 0 EKG: Sinus tachycardia. HR 100. Early repolarization. Nsst-t changes. No acute change. Under sterile condition, 2 cc's of tac were injected in the right triceps tendon.Patient tolerated procedure well without complications. Follow up in office in 4 weeks NIC SECTION TECHNICAL LEAD documented in this encounter Plan of Treatment Upcoming Encounters Date Type Department Care Team (Late st Contact Info) Description 06/03/2024 1:00 PM ORGANIC SECTION TECHNICAL LEAD Appointment [facility] - Rheumatology [address] [place] [address] [phone] 06/03/2024 2:00 PM ORGANIC SECTION TECHNICAL LEAD Office Visit [facility] - Rheumatology [address] [place] [address] [phone] Gloria Smith MD [address] [place] [phone] Scheduled Orders Name Type Priority Associated Diagnoses Orde r Schedule EKG 12-LEAD ECG Routine Tachycardia 1 Occurrences starting 05/26/2014 until 05/26/2015 documented as of this encounter Visit Diagnoses Diagnosis Rheumatoid arthritis(714.0) ([facility])- Primary Rheumatoid arthritis Chronic pain syndrome Lumbar radiculopathy Thoracic or lumbosacral neuritis or radiculitis, unspecified Triceps tendonitis Other enthesopathy of elbow region Tachycardia Tachycardia, unspecified documented in this encounter Administered Medications Administered Medications Medication Order MAR Action Action Date Dose Rate Site Triamcinolone Acetonide Intraarticular Given 05/22/2014 80 mL See comments documented in this encounter Care Teams Wheel Loader Operator Relationship Specialty Start Date End Date Tomas Hyman MD [address] [facility] [address] [place] [address] PCP - General Family Medicine 12/31/13 05/09/18 Isidro Heredia MD Rheumatology 02/09/11 documented as of this encounter
--- OUTSIDE RECORDS SUMMARY | 2024-05-03 04:12 | XMS_ITS | Encounter Summary ---
Author Organization [facility] Address [address] [place] [address] Care Team Providers Care X Ray Developer Name Role Phone Isidro Heredia MD Unavailable [phone] Tomas Hyman MD Primary Care Provider Reason for Visit * Reason Comments Follow-up RA; lower joint extr emity pain Pain Back lower back pain * Evaluate & Treat (Routine) - Closed Specialty Diagnoses / Procedures Referred By Contac t Referred To Contact Diagnoses Rheumatoid arthritis(714.0) (HCC) Procedures ND OFFICE/OUTPT VISIT,JULITO RODRIGUEZ Jason E, MD [address] [place] [address] Isidro Heredia MD [address] [place] [address] Referral ID Status Reason Start Date Expiration Date Visits Re quested Visits Authorized [id number] Closed 09/09/2014 03/08/2015 5 5 Encounter Details Date Type Department Care Team (Late st Contact Info) Description 11/05/2014 2:30 PM CDT Office Visit [facility] - Rheumatology [address] [place] [address] Isidro Heredia MD [address] [place] [address] Rheumatoid arthritis(714.0) (HCC) (Primary Dx); Chronic [...] Sign Reading Time Taken Comments Blood Pressure 122/80 11/05/2014 3:03 PM CDT Pulse 84 11/05/2014 3:03 PM CDT Temperature - - Respiratory Rate - - Oxygen Saturation - - Inhaled Oxygen Concentration - - Weight 114.7 kg (252 lb 12.8 oz) 11/05/2014 3:03 PM CDT Height 177.8 cm (5' 10 ) 11/05/2014 3:03 PM CDT Body Mass Index 36.27 11/05/2014 3:03 PM CDT documented in this encounter Progress Notes * Isidro Heredia MD - 11/05/2014 3:24 PM CDT Subjective: Chalino Deng 54 y.o. male is here for Chief Complaint Patient presents with ??? Follow-up RA; lower joint extremity pain ??? Pain Back lower back pain HPI: On actemra mtx pred 10am 5 mg pm and neurontin skelaxin percocet for chronic pain Pain Level 7/10 knees ankles hands Also lumbar radiculopathy again Am stiffness 2 hrs Global 9/10 Fatigue [...] 2 times daily. 180 Tab 3 ??? gabapentin (NEURONTIN) 300 MG capsule Take 300 mg by mouth once. ??? methotrexate 2.5 MG tablet TAKE 6 TABLETS EVERY 7 DAYS 72 Tab 3 ??? Magnesium Citrate 100 MG TABS Take by mouth. ??? Multiple Vitamins-Minerals (OCUVITE PO) Take by mouth. ??? fish oil/omega-3 fatty acids (FISH OIL) 1000 MG capsule Take 1,000 mg by mouth 2 times daily. ??? Multiple Vitamin (MULTI-VITAMIN PO) Take by mouth once daily. ??? Xyuaooygsvv-Ztdmupcbw-Qmu C-Mn (GLUCOSAMINE CHONDR 1500 COMPLX PO) Take [...] lungs Objective: General Appearance Physical Exam: BP 122/80 mmHg Pulse 84 Ht 1.778 m (5' 10 ) Wt 114.669 kg (252 lb 12.8 oz) BMI 36.27 kg/m2 Head: perrla, eyes no irritation, vision and hearing intact, no oral ulcers, tongue normal, throat clear Neck:supple, no bruits, adenopathy Chest: clear, no rales, rhonchi or wheezes. Heart nsr. No S3,S4, or murmurs Abdomen:soft, no masses or tenderness, no organomegaly Genitalia, Groin, Buttocks: Back: no abnormal curvature, tenderness, or muscle spasm Extremities: No edema, cyanosis, or rash RUE: 13/TJ, 5/SJ, 0/muscle tenderness or weakness LUE: 13/TJ, 3/SJ, 0/muscle tenderness or weakness RLE: 1/TJ, 1/SJ, 0/muscle tenderness or weakness LLE: 1/TJ, 1/SJ, 0/muscle tenderness or weakness Assessment: Encounter Diagnoses Name Primary? Rheumatoid arthritis(714.0) Yes ??? Chronic pain syndrome poorly controlled ra and chronic pain same meds see pcp for bs Plan: Plan Orders Placed This Encounter ??? oxyCODONE-acetaminophen (PERCOCET) 5-325 MG tablet Sig: Take 1 Tab by mouth every 6 hours as needed for Pain Dx: 714.0 RA Dispense: 120 Tab Refill: 0 ??? predniSONE (DELTASONE) 10 MG tablet Sig: TAKE 1 TABLET BY MOUTH 2 TIMES A DAY Dispense: 180 Tab Refill: 3 ??? esomeprazole (NEXIUM) 40 MG capsule Sig: Take 1 Cap by mouth daily before breakfast Dispense: 90 Cap Refill: 3 Follow up in office in 4 weeks documented in this encounter Plan of Treatment Upcoming Encounters Date Type Department Care Team (Late st Contact Info) Description 06/03/2024 1:00 PM AGRICULTURAL EQUIPMENT MECHANIC Appointment [facility] - Rheumatology [address] [place] [address] 06/03/2024 2:00 PM AGRICULTURAL EQUIPMENT MECHANIC Office Visit [facility] - Rheumatology [address] [place] [address] Gloria Smith MD [address] [place] [phone] documented as of this encounter Visit Diagnoses Diagnosis Rheumatoid arthritis(714.0) (HCC)- Primary Rheumatoid arthritis Chronic pain syndrome documented in this encounter Care Teams X Ray Developer Relationship Specialty Start Date End Date Tomas Hyman MD [address] [facility] [address] [place] [address] PCP - General Family Medicine 12/31/13 05/09/18 Isidro Heredia MD Rheumatology 02/09/11 documented as of this encounter
--- OUTSIDE RECORDS SUMMARY | 2024-05-03 04:12 | XMS_ITS | Encounter Summary ---
Author Organization [facility] Health Address [address] [place] [address] Care Team Providers Care Valve Mechanic Name Role Phone Isidro Heredia MD Unavailable [phone] Tomas Hyman MD Primary Care Provider [phone] Reason for Visit * Treatment (Routine) - Closed Specialty Diagnoses / Procedures Referred By Lawrence shah Referred To Contact [place] [address] [address] [facility] Pain Care [address] [place] [address] Referral ID Status Reason Start Date Expiration Date Visits Re quested Visits Authorized [id number] Closed 12/21/2014 06/19/2015 1 6 Encounter Details Date Type Department Care Team (Latest Contact Info) Description 12/29/2014 9:03 AM CDT - 12/29/2014 9:04 AM CDT Hospital Encounter [facility] Health Pain Care [address] [place] [address] [place] [id number] [address] Discharge Disposition: Home or Self [...] Sig Dispensed Refills Start Date End Date Frklqaacjsd-Ixckpbpko-O it C-Mn (GLUCOSAMINE CHONDR 1500 COMPLX PO) [...] before breakfast 90 Cap 3 11/05/2014 09/13/2015 fish oil/omega-3 fatty acids (FISH OIL) 1000 MG capsule Take 1,000 mg by mouth 2 times daily. 01/07/2015 gabapentin (NEURONTIN) 300 MG capsule Take 1 [...] Pain Dx: 714.0 RA 120 Tab 0 12/03/2014 01/07/2015 pravastatin (PRAVACHOL) 20 MG tablet Take 20 mg by mouth once daily. 06/14/2015 predniSONE (DELTASONE) 10 MG tablet TAKE 1 TABLET BY MOUTH 2 TIMES A DAY 180 Tab 3 11/05/2014 09/24/2015 documented as of this encounter Plan of Treatment Upcoming Encounters Date Type Department Care Team (Late st Contact Info) Description 06/03/2024 1:00 PM MILLWRIGHT HELPER Appointment [facility] - Rheumatology [address] [place] [address] [phone] 06/03/2024 2:00 PM MILLWRIGHT HELPER Office Visit [facility] - Rheumatology [address] [place] [address] [phone] Gloria Smith MD [address] [place] [phone] documented as of this encounter Visit Diagnoses Not on filedocumented in this encounter Care Teams Valve Mechanic Relationship Specialty Start Date End Date Tomas Hyman MD [address] [facility] [address] [place] [address] PCP - General Family Medicine 12/31/13 05/09/18 Isidro Heredia MD Rheumatology 02/09/11 documented as of this encounter
--- OUTSIDE RECORDS SUMMARY | 2024-05-03 04:12 | XMS_ITS | Encounter Summary ---
Author Organization [facility] Address [address] [facility] [address] Care Team Providers Care Academic Tutor Name Role Phone Isidro Heredia MD Unavailable [phone] Tomas Hyman MD Primary Care Provider [phone] Reason for Visit * Treatment (Routine) - Closed Specialty Diagnoses / Procedures Referred By Lawrence shah Referred To Contact Infusion Therapy Nurse Diagnoses Rheumatoid arthritis(714.0) ([facility]) Procedures AL INJECTION TOCILIZUMAB 1 MG Isidro Heredia MD [address] [place] [address] [address] Referral ID Status Reason Start Date Expiration Date Visits Re quested Visits Authorized [id number] Closed 09/29/2014 04/29/2015 1 6 Encounter Details Date Type Department Care Team (Late st Contact Info) Description 01/07/2015 1:55 PM CDT - 01/07/2015 11:59 PM CDT Hospital Encounter [facility] Medical [facility] - Rheumatology [address] [place] [address] Isidro Heredia MD [address] [facility] [place] [address] Discharge Disposition: Home or Self [...] Sign Reading Time Taken Comments Blood Pressure 114/74 01/07/2015 2:05 PM CDT Pulse 91 01/07/2015 2:05 PM CDT Temperature 36.3 ??C (97.4 ??F) 01/07/2015 2:05 PM CD T Respiratory Rate 16 01/07/2015 2:05 PM CDT Oxygen Saturation - - Inhaled Oxygen Concentration - - Weight 112.1 kg (247 lb 3.2 oz) 01/07/2015 2:27 PM CDT Height - - Body Mass Index 35.47 11/05/2014 3:03 PM CDT documented in this encounter Discharge Instructions * Discharge Instructions* Carlos Foreman RN - 01/07/2015 2:30 PM CDT [facility] Rhe[facility]ology Post Infusion instructions [...] Sunday through 01-02 call the office at [phone] After hours or on the weekend call the exchange at [phone] If you have had lab work done [...] Sig Dispensed Refills Start Date End Date Jkoddvyjrch-Ymnelvcon-F it C-Mn (GLUCOSAMINE CHONDR 1500 COMPLX PO) [...] Pain Dx: 714.0 RA 120 Tab 0 01/07/2015 02/04/2015 pravastatin (PRAVACHOL) 20 MG tablet Take 20 mg by mouth once daily. 06/14/2015 predniSONE (DELTASONE) 10 MG tablet TAKE 1 TABLET BY MOUTH 2 TIMES A DAY 180 Tab 3 11/05/2014 09/24/2015 triamcinolone acetonide (KENALOG) injection 2 mL by Intra-articular route once for 1 dose 2 mL 0 01/26/2015 01/26/2015 documented as of this encounter Progress Notes * Carlos Foreman RN - 01/07/2015 2:26 PM CDT JOSE Chalino Deng [id number] 01/07/2015 Diagnosis: Rheumatoid arthritis(714.0) [714.0]. Patient questionnaire results Health Assessment Questionnaire MHAQ: Pain: Global: Rapid 3: Sleep: GI: Fatigue: BP 114/74 mmHg Pulse 91 Temp(Src) 97.4 ??F Resp 16 @ MEDICATIONS FOR CURRENT [...] st Contact Info) Description 06/03/2024 1:00 PM HUMAN RESOURCES SPECIALIST Appointment [facility] - Rheumatology [address] [place] [address] 06/03/2024 2:00 PM HUMAN RESOURCES SPECIALIST Office Visit [facility] - Rheumatology [address] [place] [address] Gloria Smith MD [address] [place] [phone] documented as of this encounter Visit Diagnoses Diagnosis Rheumatoid arthritis(714.0) (HCC) Rheumatoid arthritis documented in this encounter Administered Medications Inactive Administered Medications - up to 3 most recent administrations Medication Order MAR Action Action Date Dose Rate Site Tocilizumab 800 mg in 0.9% NaCl IVPB 800 mg, at 140 mL/hr, Intravenous, ONCE, 1 dose, On Gabriela 01/07/15 at 1430, 2 vials Actemra 400mg 0 waste. Stable 24hrs RT $ Given 01/07/2015 2:12 PM CDT 800 mg 140 mL/hr documented in this encounter Care Teams Academic Tutor Relationship Specialty Start Date End Date Tomas Hyman MD [address] [facility] [address] [place] [address] PCP - General Family Medicine 12/31/13 05/09/18 Isidro Heredia MD Rheumatology 02/09/11 documented as of this encounter
--- OUTSIDE RECORDS SUMMARY | 2024-05-03 04:12 | XMS_ITS | Encounter Summary ---
Author Organization [facility] Health Address [address] [facility] [place] [address] Care Team Providers Care Ventilating Expert Name Role Phone Isidro Heredia MD Unavailable Tomas Hyman MD Primary Care Provider [phone] Reason for Visit * Treatment (Routine) - Closed Specialty Diagnoses / Procedures Referred By Contsarahi t Referred To Contact Pain Management Diagnoses Displacement of lumbar intervertebral disc without myelopathy Thoracic or lumbosacral neuritis or radiculitis, unspecified Procedures WA INJ,FORAMEN,L/S,1 LEVEL WA INJ,FORAMEN,L/S,[place] [address] [address] [facility] Pain Care [address] [place] [address] Referral ID Status Reason Start Date Expiration Date Visits Re quested Visits Authorized [id number] Closed 03/10/2014 09/06/2014 6 6 Encounter Details Date Type Department Care Team (Latest Contact Info) Description 03/24/2014 10:15 AM CAMP GUARD - 03/24/2014 10:23 AM [facility] Hospital Encounter [facility] Pain Care [address] [place] [address] [place] [address] [place] [phone] Discharge Disposition: Home or Self Care Social [...] Sig Dispensed Refills Start Date End Date Hqfhfwbeesn-Pzpsrhokq-Ru t C-Mn (GLUCOSAMINE CHONDR 1500 COMPLX PO) [...] oxyCODONE-acetaminophen (PERCOCET) 5-325 MG tabletIndications:Rheuma toid arthritis(714.0) ([facility]) Take 1 Tab by mouth [...] Contact Info) Description 06/03/2024 1:00 PM CAMP GUARD Appointment [facility] - Rheumatology [address] [place] [address] [phone] 06/03/2024 2:00 PM CAMP GUARD Office Visit [facility] - Rheumatology [address] [place] [address] [phone] Gloria Smith MD [address] [place] [phone] documented as of this encounter Visit Diagnoses Not on filedocumented in this encounter Care Teams Ventilating Expert Relationship Specialty Start Date End Date Tomas Hyman MD [address] [facility] [address] [place] [address] PCP - General Family Medicine 12/31/13 05/09/18 Isidro Heredia MD Rheumatology 02/09/11 documented as of this encounter
--- OUTSIDE RECORDS SUMMARY | 2024-05-03 04:12 | XMS_ITS | Encounter Summary ---
Author Organization [facility] Address [address] [facility] [place] [address] Care Team Providers Care Head Banquet Waiter/Waitress Name Role Phone Isidro Heredia MD Unavailable [phone] Tomas Hyman MD Primary Care Provider [phone] Reason for Visit * Treatment (Routine) - Closed Specialty Diagnoses / Procedures Referred By Lawrence shah Referred To Contact Infusion Therapy Nurse Diagnoses Rheumatoid arthritis(714.0) ([facility]) Procedures GA INJECTION TOCILIZUMAB 1 MG Isidro Heredia MD [address] [place] [address] [address] Referral ID Status Reason Start Date Expiration Date Visits Re quested Visits Authorized [id number] Closed 09/29/2014 04/29/2015 1 6 Encounter Details Date Type Department Care Team (Late st Contact Info) Description 10/07/2014 1:54 PM CDT - 10/07/2014 11:59 PM CDT Hospital Encounter [facility] Medical [facility] - Rheumatology [address] [place] [address] Isidro Heredia MD [address] [place] [address] Discharge Disposition: Home or Self [...] Reading Time Taken Comments Blood Pressure 135/78 10/07/2014 2:12 PM CDT Pulse 102 10/07/2014 2:12 PM CDT Temperature 36.9 ??C (98.4 ??F) 10/07/2014 2:12 PM CD T Respiratory Rate 16 10/07/2014 2:12 PM CDT Oxygen Saturation - - Inhaled Oxygen Concentration - - Weight 117 kg (258 lb) 10/07/2014 2:12 PM CDT Height - - Body Mass Index 37.02 08/12/2014 10:45 AM CDT documented in this encounter Discharge Instructions * Discharge Instructions* Carlos Foreman RN - 10/07/2014 2:20 PM CDT [facility] instructions [...] Sunday through 01-02 call the office at [phone] After hours or on the weekend call the exchange at [phone] If you have had lab work done [...] chosen [facility] as your provider. Carlos Foreman RN documented in this encounter Medications at Time of Discharge Medication Sig Dispensed Refills Start Date End Date Oeobrtvtspa-Sixadsmxd-Fc t C-Mn (GLUCOSAMINE CHONDR 1500 COMPLX PO) [...] once. 11/05/2014 metaxalone (SKELAXIN) 800 MG tablet TAKE 1 [...] 3 06/08/2014 04/26/2015 oxyCODONE-acetaminophen (PERCOCET) 5-325 MG tabletIndications:Rheuma toid arthritis(714.0) ([facility]) Take 1 Tab by mouth every 6 hours as needed for Pain. 120 Tab 0 09/09/2014 11/05/2014 pravastatin (PRAVACHOL) 20 MG tablet Take 20 mg by mouth once daily. 06/14/2015 predniSONE (DELTASONE) 10 MG tablet TAKE 1 TABLET BY MOUTH 2 TIMES A DAY 180 Tab 3 07/17/2013 11/05/2014 documented as of this encounter Progress Notes * Carlos Foreman RN - 10/07/2014 2:29 PM CDT JOSE Chalino Deng [id number] 10/07/2014 Diagnosis: Rheumatoid arthritis(714.0) [714.0]. Patient questionnaire results Health Assessment Questionnaire BP 135/78 mmHg Pulse 102 Temp(Src) 98.4 ??F Resp 16 Wt 117.028 kg (258 lb) @ MEDICATIONS FOR CURRENT ENCOUNTER: ?? [...] st Contact Info) Description 06/03/2024 1:00 PM COMPENSATION/BENEFITS SPECIALIST Appointment [facility] - Rheumatology [address] [place] [address] [phone] 06/03/2024 2:00 PM COMPENSATION/BENEFITS SPECIALIST Office Visit [facility] - Rheumatology [address] [place] [address] Gloria Smith MD [address] [place] [phone] documented as of this encounter Visit Diagnoses Diagnosis Rheumatoid arthritis(714.0) ([facility]) Rheumatoid arthritis documented in this encounter Administered Medications Inactive Administered Medications - up to 3 most recent administrations Medication Order MAR Action Action Date Dose Rate Site Tocilizumab 800 mg in 0.9% NaCl IVPB 800 mg, at 140 mL/hr, Intravenous, ONCE, 1 dose, On Sun10/07/14 at 1445, 2 vials used of Actemra 400MG with 0 WASTE. Stable 24hrs RT $ Given 10/07/2014 2:20 PM CDT 800 mg 140 mL/h r documented in this encounter Care Teams Head Banquet Waiter/Waitress Relationship Specialty Start Date End Date Tomas Hyman MD [address] [facility] [address] [place] [address] PCP - General Family Medicine 12/31/13 05/09/18 Isidro Heredia MD Rheumatology 02/09/11 documented as of this encounter
--- OUTSIDE RECORDS SUMMARY | 2024-05-03 04:12 | XMS_ITS | Encounter Summary ---
Author Organization [facility] Address [address] [facility] [place] [address] Care Team Providers Care Administrative Assistant Front Desk Name Role Phone Isidro Heredia MD Unavailable [phone] Tomas Hyman MD Primary Care Provider [phone] Encounter Details Date Type Department Care Team (Latest Contact Info) Description 03/24/2014 10:24 AM CHIEF TECHNICIAN X RAY - 03/24/2014 11:59 PM CHIEF TECHNICIAN X RAY Hospital Encounter [facility] Pain Care [address] [place] [address] [place] [address] [place] [phone] Discharge Disposition: Home or Self Care Social [...] Sign Reading Time Taken Comments Blood Pressure 150/88 03/24/2014 11:20 AM CHIEF TECHNICIAN X RAY Pulse 97 03/24/2014 11:20 AM CHIEF TECHNICIAN X RAY Temperature - - Respiratory Rate 16 03/24/2014 11:20 AM CHIEF TECHNICIAN X RAY Oxygen Saturation 97% 03/24/2014 11:20 AM CHIEF TECHNICIAN X RAY Inhaled Oxygen Concentration - - Weight - - Height - - Body Mass Index - - documented in this encounter Discharge Instructions * Patient Instructions* Nena Pond RN - 03/24/2014 10:39 AM CHIEF TECHNICIAN X RAY [facility] Pain Discharge Instructions Selective Epidural [...] headache, or any other problems, please call [phone] or after hours callDr. Mirza at [phone] and tell them your physician's name. The exchange will alert the physician websphere commerce consultant. If sedation is given: No sedation given. For Your Next Visit: No additional instructions. Other Instructions: May remove band-aid in 12 Hours. Return in two weeks for follow up. Patient Signature: Date: RN Signature: Date: F TECHNICIAN X RAY documented in this encounter Medications at Time of Discharge Medication Sig Dispensed Refills Start Date End Date Goweyonpfuu-Tirdukcdz-Ks t C-Mn (GLUCOSAMINE CHONDR 1500 COMPLX PO) [...] oxyCODONE-acetaminophen (PERCOCET) 5-325 MG tabletIndications:Rheuma toid arthritis(714.0) ([facility]) Take 1 Tab by mouth [...] Procedure Notes * Alejandro Mirza MD - 03/24/2014 11:38 AM CSTAssociated Order(s): PAIN MANAGEMENT PROCEDURE TIME Right L5 & S1 Transforaminal Epidural Injection Chalino Deng Provider: Alejandro Mirza MD 1960 Date: 03/24/2014 Tomas Hyman Allergies: Allergies as of 03/24/2014 - Complete 03/24/2014 Allergen Reaction Noted ??? Plaquenil [hydroxychloroquine sulfate] 05/15/2011 ??? Tuberculin ppd 07/27/2008 Procedure: TFE Right L5 & S1 Diagnosis/Indication::Lumbar Transforaminal epidural injection 722.10 Indication for Procedure: Intractable radicular pain of the lower extremity. Other conservative therapies and/or treatments provided inadequate pain relief. Procedure: Lumbar/Sacral Transforaminal Injection. Informed Consent: After the patient ,Chlaino Deng was informed of the risks and [...] identified, and marked by Dr. Mirza. Responsible route sales delivery drivers supervisor is not needed due to the patient [...] Add Levels Lumb/Sac, Fluoro. Alejandro Mirza MD F TECHNICIAN X RAY documented in this encounter Plan of Treatment Upcoming Encounters Date Type Department Care Team (Late st Contact Info) Description 06/03/2024 1:00 PM CHIEF TECHNICIAN X RAY Appointment [facility] - Rheumatology [address] [place] [address] [phone] 06/03/2024 2:00 PM CHIEF TECHNICIAN X RAY Office Visit [facility] - Rheumatology [address] [place] [address] Gloria Smith MD [address] [place] [place] [phone] documented as of this encounter Procedures Procedure Name Priority Date/Time Associated Diagnosis Comments PAIN MANAGEMENT PROCEDURE TIME Routine 03/24/2014 11:17 AM CHIEF TECHNICIAN X RAY Displacement Of Lumbar Intervertebral Disc Without Myelopathy Thoracic or lumbosacral neuritis or radiculitis, unspecified documented in this encounter Results * PAIN MANAGEMENT PROCEDURE TIME (03/24/2014 11:17 AM CHIEF TECHNICIAN X RAY) Anatomical Region Laterality Modality X-Ray Angiograph y Narrative 03/24/2014 11:38 AM CHIEF TECHNICIAN X RAY Alejandro Mirza MD ? 03/24/2014 11:38 AM Right L5 & S1 Transforaminal Epidural Injection Chalino Deng ? Provider: Alejandro Mirza MD 1960 ? Date: 03/24/2014 ?? Tomas Hyman Allergies: ?? Allergies as of 03/24/2014 - Complete 03/24/2014 Allergen Reaction Noted ? ? Plaquenil [hydroxychloroquine [...] identified, and marked by Dr. Mirza. ??Responsible route sales delivery drivers supervisor is not needed due to the patient [...] 10 mg, Intravenous, ONCE, 1 dose, On Sun03/24/14 at 1100 $ Admin. by Other Provider 03/24/2014 11:03 AM CHIEF TECHNICIAN X RAY 10 mg documented in this encounter Care Teams Administrative Assistant Front Desk Relationship Specialty Start Date End Date Tomas Hyman MD [address] [facility] [address] [place] [address] PCP - General Family Medicine 12/31/13 05/09/18 Isidro Heredia MD Rheumatology 02/09/11 documented as of this encounter
--- OUTSIDE RECORDS SUMMARY | 2024-05-03 04:12 | XMS_ITS | Encounter Summary ---
Author Organization [facility] Address [address] [facility] [place] [address] Care Team Providers Care Residential Building Inspector Name Role Phone Isidro Heredia MD Unavailable Tomas Hyman MD Primary Care Provider [phone] Reason for Visit * Reason Comments Rheumatoid Arthritis * Evaluate & Treat (Routine) - Closed Specialty Diagnoses / Procedures Referred By Lawrence shah Referred To Contact Diagnoses Rheumatoid arthritis(714.0) (HCC) Procedures [place] OFFICE VISIT DURING HOURS Tomas Hyman MD [address] [facility] [address] [place] [address] Isidro Heredia MD [address] [place] [address] Referral ID Status Reason Start Date Expiration Date Visits Re quested Visits Authorized [id number] Closed 02/10/2014 02/10/2015 6 6 Encounter Details Date Type Department Care Team (Late st Contact Info) Description 04/10/2014 12:15 PM TOOL PUSHER Office Visit [facility] Medical [facility] - Rheumatology [address] [place] [address] Isidro Heredia MD [address] [place] [address] Rheumatoid arthritis (HCC) (Primary Dx); Chronic pain syndrome Social [...] Time Taken Comments Blood Pressure 149/87 04/10/2014 1:53 PM TOOL PUSHER Pulse 112 04/10/2014 1:53 PM TOOL PUSHER Temperature - - Respiratory Rate - - Oxygen Saturation - - Inhaled Oxygen Concentration - - Weight 117.9 kg (260 lb) 04/10/2014 1:53 PM TOOL PUSHER Height - - Body Mass Index 37.31 03/23/2014 9:18 AM TOOL PUSHER documented in this encounter Progress Notes * Isidro Heredia MD - 04/10/2014 2:26 PM CST Subjective: Chalino Deng 53 y.o. male is here for Chief Complaint Patient presents with ??? Rheumatoid Arthritis On actemra and naprosyn for ra and percocet for chromic pain Saw dr christianson for emg Saw dr phillips for epid nerve injection HPI: radicular pain better after epid nerve shots Pain Level 9/10 Am stiffness 2-3 hrs Global 9/10 Fatigue yes Medication Side [...] PO) Take by mouth once daily. ??? Eezkyqaedcr-Qnjbskukd-Bnc C-Mn (GLUCOSAMINE CHONDR 1500 COMPLX PO) Take [...] agreement signed ??? Other and unspecified hyperlipidemia History Smoking status ??? Never Smoker Smokeless [...] heart lungs Objective: General Appearance Physical Exam: wdwn wm in nad al/o x 3 BP 149/87 Pulse 112 Wt 117.935 kg (260 lb) Head: perrla, eyes no irritation, vision and hearing intact, no oral ulcers, tongue normal, throat clear Neck:supple, no bruits, adenopathy Chest: clear, no rales, rhonchi or wheezes. Heart nsr. No S3,S4, or murmurs Abdomen:soft, no masses or tenderness, no organomegaly Genitalia, Groin, Buttocks: Back: no abnormal curvature, tenderness, or muscle spasm Extremities: No edema, cyanosis, or rash RUE: 13/TJ, 6/SJ, 0/muscle tenderness or weakness LUE: 13/TJ, 6/SJ, 0/muscle tenderness or weakness RLE: /TJ, 1/SJ, 0/muscle tenderness or weakness LLE: 1/TJ, 1/SJ, 0/muscle tenderness or weakness Assessment: Encounter Diagnoses Name Primary? Rheumatoid arthritis Yes ??? Chronic pain syndrome Poorly Controlled ra and chronic pain Same meds Plan: Plan Orders Placed This Encounter ??? oxyCODONE-acetaminophen (PERCOCET) 5-325 MG tablet Sig: Take 1 Tab by mouth every 6 hours as needed for Pain. Dispense: 120 Tab Refill: 0 Follow up in office in 4 weeks PUSHER documented in this encounter Plan of Treatment Upcoming Encounters Date Type Department Care Team (Late st Contact Info) Description 06/03/2024 1:00 PM TOOL PUSHER Appointment [facility] - Rheumatology [address] [place] [address] [phone] 06/03/2024 2:00 PM TOOL PUSHER Office Visit [facility] - Rheumatology [address] [place] [address] Gloria Smith MD [address] [place] [phone] documented as of this encounter Visit Diagnoses Diagnosis Rheumatoid arthritis(714.0) ([facility])- Primary Rheumatoid arthritis Chronic pain syndrome documented in this encounter Care Teams Residential Building Inspector Relationship Specialty Start Date End Date Tomas Hyman MD [address] [place] [address] PCP - General Family Medicine 12/31/13 05/09/18 Isidro Heredia MD Rheumatology 02/09/11 documented as of this encounter
--- OUTSIDE RECORDS SUMMARY | 2024-05-03 04:12 | XMS_ITS | Encounter Summary ---
Author Organization [facility] Address [address] [facility] [place] [address] Care Team Providers Care Team Otr Truck Driver Name Role Phone Isidro Heredia MD Unavailable [phone] Tomas Hyman MD Primary Care Provider [phone] Reason for Visit * Treatment (Routine) - Closed Specialty Diagnoses / Procedures Referred By Lawrence shah Referred To Contact Infusion Therapy Nurse Diagnoses Rheumatoid arthritis(714.0) ([facility]) Procedures [place] INJECTION TOCILIZUMAB 1 MG Isidro Heredia MD [address] [place] [address] [address] Referral ID Status Reason Start Date Expiration Date Visits Re quested Visits Authorized [id number] Closed 05/08/2014 10/05/2014 1 6 Encounter Details Date Type Department Care Team (Late st Contact Info) Description 08/12/2014 10:23 AM CDT - 08/12/2014 11:59 PM CDT Hospital Encounter [facility] Medical [facility] - Rheumatology [address] [place] [address] Isidro Heredia MD [address] [facility] [place] [address] Discharge Disposition: Home or Self [...] Sign Reading Time Taken Comments Blood Pressure 118/76 08/12/2014 10:45 AM CDT Pulse 93 08/12/2014 10:45 AM CDT Temperature 36.8 ??C (98.3 ??F) 08/12/2014 10:45 AM C DT Respiratory Rate 16 08/12/2014 10:45 AM CDT Oxygen Saturation - - Inhaled Oxygen Concentration - - Weight 114.8 kg (253 lb) 08/12/2014 10:45 AM CDT Height 177.8 cm (5' 10 ) 08/12/2014 10:45 AM CDT Body Mass Index 36.3 08/12/2014 10:45 AM CDT documented in this encounter Discharge Instructions * Discharge Instructions* Manisha Sierra RN - 08/12/2014 10:44 AM CDT [place] Rheumatology Post Infusion instructions You have received [...] rash or breathing problems please call your [facility] Rheumatology physician for further instructions. While most problems that occur around the time of an infusion are very mild and not dangerous, they should not be ignored. Sunday through 01-02 call the office at [phone] After hours or on the weekend call the exchange at [phone] If you have had lab work done [...] [facility] as your provider. Manisha Sierra RN documented in this encounter Medications at Time of Discharge Medication Sig Dispensed Refills Start Date End Date Wglylniujdh-Lxoxgmrir-Pv t C-Mn (GLUCOSAMINE CHONDR 1500 COMPLX PO) [...] oxyCODONE-acetaminophen (PERCOCET) 5-325 MG tabletIndications:Rheuma toid arthritis(714.0) (HCC) Take 1 Tab by mouth every 6 hours as needed for Pain. 120 Tab 0 07/13/2014 09/09/2014 pravastatin (PRAVACHOL) 20 MG tablet Take 20 mg by mouth once daily. 06/14/2015 predniSONE (DELTASONE) 10 MG tablet TAKE 1 TABLET BY MOUTH 2 TIMES A DAY 180 Tab 3 07/17/2013 11/05/2014 risedronate Sodium (ACTONEL) 150 MG tablet Take 1 Tab by mouth every 30 days. 3 Tab 3 07/13/2014 09/09/2014 tocilizumab 20 MG/ML in 0.9% NaCl 0.9 % 100 mLIndications:Rheumatoid arthritis(714.0) (HCC) Pt to receive IV infusion 800mg Actemra/100cc0.9%norm al saline, per nasir Avila's office practice of Actemra 8mg/kg over 60 minutes and the Actemra schedule; first dose, then every 4 weeks thereafter, unless further orders received from . Exp 09/04/2014 09/04/2013 09/04/2014 documented as of this encounter Progress Notes * Manisha Sierra, RN - 08/12/2014 10:48 AM CDT JOSE Deng [id number] 08/12/2014 Diagnosis: Rheumatoid arthritis [714.0]. Patient questionnaire results Health Assessment Questionnaire MHAQ: Pain: Global: Rapid 3: Sleep: GI: Fatigue: BP 118/76 Pulse 93 Temp(Src) 98.3 ??F Resp 16 Wt 114.76 kg (253 lb) BMI 36.30 kg/m2 @ MEDICATIONS FOR CURRENT ENCOUNTER: ?? SCHEDULED MEDICATIONS: ?? Tocilizumab 800 mg in 0.9% NaCl IVPB, Intravenous, Once ?? CONTINUOUS MEDICATIONS: PRN MEDICATIONS: ?? Number of 24 gauge 3/4 inch placed in Left hand ?? 1 attempt(s). Patient monitored throughout procedure. Tolerated well? Yes Next treatment? 4 weeks Manisha D Rigo, RN documented in this encounter Plan of Treatment Upcoming Encounters Date Type Department Care Team (Late st Contact Info) Description 06/03/2024 1:00 PM ALTERATION SPECIALIST Appointment [facility] - Rheumatology [address] [place] [address] [phone] 06/03/2024 2:00 PM ALTERATION SPECIALIST Office Visit [facility] - Rheumatology [address] [place] [address] Gloria Smith MD [address] [place] [address] [phone] documented as of this encounter Visit Diagnoses Diagnosis Rheumatoid arthritis(714.0) ([facility]) Rheumatoid arthritis documented in this encounter Administered Medications Inactive Administered Medications - up to 3 most recent administrations Medication Order MAR Action Action Date Dose Rate Site Tocilizumab 800 mg in 0.9% NaCl IVPB 800 mg, at 140 mL/hr, Intravenous, ONCE, 1 dose, On Sun08/12/14 at 1030, 2 vials used of Actemra 400MG [facility] [phone] with 0 WASTE $ Given 08/12/2014 10:47 AM CDT 800 mg 140 mL/hr documented in this encounter Care Teams Team Otr Truck Driver Relationship Specialty Start Date End Date Tomas Hyman MD [address] [facility] [address] [place] [address] PCP - General Family Medicine 12/31/13 05/09/18 Isidro Heredia MD Rheumatology 02/09/11 documented as of this encounter
--- OUTSIDE RECORDS SUMMARY | 2024-05-03 04:12 | XMS_ITS | Encounter Summary ---
Author Organization [facility] Address [address] [facility] [place] [address] Care Team Providers Care Boiler Tester Name Role Phone Isidro Heredia MD Unavailable [phone] Tomas Hyman MD Primary Care Provider [phone] Reason for Referral * Procedure - Closed Specialty Diagnoses / Procedures Referred By Contac t Referred To Contact Cardiology Diagnoses Tachycardia Procedures EKG 12-LEAD Isidro Heredia MD [address] [place] [address] Referral ID Status Reason Start Date Expiration Date Visits Re quested Visits Authorized [id number] Closed 05/26/2014 11/22/2014 1 1 Reason for Visit * Treatment (Routine) - Closed Specialty Diagnoses / Procedures Referred By Contac t Referred To Contact Infusion Therapy Nurse Diagnoses Rheumatoid arthritis(714.0) ([facility]) Procedures [place] INJECTION TOCILIZUMAB 1 MG Isidro Heredia MD [address] [place] [address] [address] Referral ID Status Reason Start Date Expiration Date Visits Re quested Visits Authorized [id number] Closed 05/08/2014 10/05/2014 1 6 Encounter Details Date Type Department Care Team (Late st Contact Info) Description 07/13/2014 2:25 PM CDT - 07/13/2014 11:59 PM CDT Hospital Encounter [facility] - Rheumatology [address] [place] [address] Isidro Heredia MD [address] [facility] [place] [address] Discharge Disposition: Home or Self Care Social [...] Sign Reading Time Taken Comments Blood Pressure 132/89 07/13/2014 2:54 PM CDT Pulse 130 07/13/2014 2:54 PM CDT Temperature 36.9 ??C (98.4 ??F) 07/13/2014 2:54 PM CD T Respiratory Rate 16 07/13/2014 2:54 PM CDT Oxygen Saturation - - Inhaled Oxygen Concentration - - Weight - - Height - - Body Mass Index - - documented in this encounter Discharge Instructions * Discharge Instructions* Carlos Foreman RN - 07/13/2014 3:07 PM CDT [place] Rheumatology Post Infusion instructions [...] through Sunday 9-5 call the office at [phone] After hours or on the weekend call the exchange at [phone] If you have had lab work done [...] chosen [facility] as your provider. Carlos Foreman RN documented in this encounter Medications at Time of Discharge Medication Sig Dispensed Refills Start Date End Date Qxffqnlcogh-Eyszrxadg-Zm t C-Mn (GLUCOSAMINE CHONDR 1500 COMPLX PO) [...] 30 days. 3 Tab 3 07/13/2014 09/09/2014 tamsulosin CR 24hr (FLOMAX) 0.4 MG capsule Take 1 Cap by mouth once daily. Take 30 minutes after a meal at the same time each day. 30 Cap 5 11/11/2012 08/12/2014 tocilizumab 20 MG/ML in 0.9% NaCl 0.9 % 100 mLIndications:Rheumatoid arthritis(714.0) ([facility]) Pt to receive IV infusion 800mg Actemra/100cc0.9%norm al saline, per nasir Avila's office practice of Actemra 8mg/kg over 60 minutes and the Actemra schedule; first dose, then every 4 weeks thereafter, unless further orders received from . Exp 09/04/2014 09/04/2013 09/04/2014 documented as of this encounter Progress Notes * Carlos Foreman, RN - 07/13/2014 3:13 PM CDT JOSE Deng [id number] 07/13/2014 Diagnosis: Tachycardia [785.0]. Patient questionnaire results Health Assessment Questionnaire BP 132/89 Pulse 130 Temp(Src) 98.4 ??F Resp 16 @ MEDICATIONS FOR CURRENT ENCOUNTER: 2x 400mg vials used ?? SCHEDULED MEDICATIONS: ?? Tocilizumab 800 mg in 0.9% NaCl IVPB, Intravenous, Once ?? CONTINUOUS MEDICATIONS: PRN MEDICATIONS: ?? Number of 24 gauge .75 inch placed in Left hand ?? 1 attempt(s). Patient monitored throughout procedure. Tolerated well? Yes Next treatment? 4wk Carlos Foreman, TOVA documented in this encounter Plan of Treatment Upcoming Encounters Date Type Department Care Team (Late st Contact Info) Description 06/03/2024 1:00 PM FISHER NET Appointment [facility] - Rheumatology [address] [place] [address] 06/03/2024 2:00 PM FISHER NET Office Visit [facility] - Rheumatology [address] [place] [address] Gloria Smith MD [address] [place] [phone] Scheduled Orders Name Type Priority Associated Diagnoses Orde r Schedule EKG 12-LEAD ECG Routine Tachycardia 1 Occurrences starting 07/13/2014 until 07/13/2014 documented as of this encounter Visit Diagnoses Diagnosis Rheumatoid arthritis(714.0) (HCC) Rheumatoid arthritis Tachycardia Tachycardia, unspecified documented in this encounter Administered Medications Inactive Administered Medications - up to 3 most recent administrations Medication Order MAR Action Action Date Dose Rate Site Tocilizumab 800 mg in 0.9% NaCl IVPB 800 mg, at 140 mL/hr, Intravenous, ONCE, 1 dose, On 07/13/14 at 1245, 2 vials used of Actemra 400MG [facility] [phone] with 0 WASTE $ Given 07/13/2014 2:50 PM CDT 800 mg 140 m L/hr documented in this encounter Care Teams Boiler Tester Relationship Specialty Start Date End Date Tomas Hyman MD [address] [facility] [address] [place] [address] PCP - General Family Medicine 12/31/13 05/09/18 Isidro Heredia MD Rheumatology 02/09/11 documented as of this encounter
--- OUTSIDE RECORDS SUMMARY | 2024-05-03 04:12 | XMS_ITS | Encounter Summary ---
Author Organization [facility] Address [address] [facility] [place] [address] Care Team Providers Care Production Grip Name Role Phone Hitesh Solis MD Unavailable [phone] Tomas Hyman MD Primary Care Provider [phone] Reason for Visit * Reason Comments Rheumatoid Arthritis Shoulder Pain right, would liek co rtisone injection * Evaluate & Treat (Routine) - Closed Specialty Diagnoses / Procedures Referred By Contac t Referred To Contact Diagnoses Rheumatoid arthritis(714.0) (HCC) Procedures [place] OFFICE/OUTPT VISIT,EST,Tomas Gupta MD [address] [place] [address] Hitesh Solis MD [address] [place] [address] Referral ID Status Reason Start Date Expiration Date Visits Re quested Visits Authorized [id number] Closed 09/09/2014 03/08/2015 5 5 Encounter Details Date Type Department Care Team (Late st Contact Info) Description 01/07/2015 3:00 PM CDT Office Visit [facility] - Rheumatology [address] [place] [address] Hitesh Solis MD [address] [facility] [address] Rheumatoid arthritis(714.0) (HCC) (Primary Dx); Chronic pain syndrome; Right lumbar radiculopathy; Triceps tendonitis Social History Tobacco Use Types [...] Time Taken Comments Blood Pressure 114/74 01/07/2015 2:27 PM CDT Pulse 91 01/07/2015 2:27 PM CDT Temperature - - Respiratory Rate - - Oxygen Saturation - - Inhaled Oxygen Concentration - - Weight 112.1 kg (247 lb 3.2 oz) 01/07/2015 2:27 PM CDT Height - - Body Mass Index 35.47 11/05/2014 3:03 PM CDT documented in this encounter Progress Notes * Hitesh Solis MD - 01/07/2015 4:05 PM CDT Subjective: Chalino Deng 54 y.o. male is here for Chief Complaint Patient presents with ??? Rheumatoid Arthritis ??? Shoulder Pain right, would liek cortisone injection HPI: On mtx actemra pred 1 mg/d for ra and neurontin percocet skelaxin For chronic pain Good relief epid nerv injedtions x2 dr phillips Pain Level 7/10 hands right shoulder Am stiffness 2 hrs Global 9/10 Fatigue [...] PO) Take by mouth once daily. ??? Dulhwhpauap-Ckurdmgla-Gdp C-Mn (GLUCOSAMINE CHONDR 1500 COMPLX PO) Take [...] Heart lungs Objective: General Appearance Physical Exam: wd wm wm in nada/o x3 BP 114/74 mmHg Pulse 91 Wt 112.129 kg (247 lb 3.2 oz) Head: perrla, eyes no irritation, vision and hearing intact, no oral ulcers, tongue normal, throat clear Neck:supple, no bruits, adenopathy Chest: clear, no rales, rhonchi or wheezes. Heart nsr. No S3,S4, or murmurs Abdomen:soft, no masses or tenderness, no organomegaly Genitalia, Groin, Buttocks: Back: no abnormal curvature, tenderness, or muscle spasm Extremities: No edema, cyanosis, or rash RUE: 11/TJ, 8/SJ, 0/muscle tenderness or weakness LUE: 10/TJ, 8/SJ, 0/muscle tenderness or weakness RLE: 1/TJ, 0/SJ, 0/muscle tenderness or weakness LLE: 1/TJ, 0/SJ, 0+/muscle tenderness or weakness Assessment: Encounter Diagnoses Name Primary? Rheumatoid arthritis(714.0) Yes ??? Chronic pain syndrome ??? Right lumbar radiculopathy ??? Triceps tendonitis poorly controlled ra And chronic pain same meds Steroid shot for right shoulder Plan: Plan Orders Placed This Encounter ??? TRIAMCINOLON ACETONID NOS 10 MG INJ ??? CBC W AUTO DIFFERENTIAL ??? COMPREHENSIVE METABOLIC PANEL ??? SED RATE WESTERGREN ??? WA DRAIN/INJECT LARGE JOINT/BURSA ??? oxyCODONE-acetaminophen (PERCOCET) 5-325 MG tablet Sig: Take 1 Tab by mouth every 6 hours as needed for Pain Dx: 714.0 RA Dispense: 120 Tab Refill: 0 ??? triamcinolone acetonide (KENALOG) injection Si mL by Intra-articular route once for 1 dose Dispense: 2 mL Refill: 0 Under sterile condition, 2 cc's of tac with 1 cc 2 % lidocaine were injected in the right shoulder . 0 cc's of synovial fluid were aspirated. Patient tolerated procedure well without complications. Follow up in office in 4 weeks documented in this encounter Miscellaneous Notes * Addendum Note - Hitesh Solis MD - 01/26/2015 6:02 PM CDTAddended by: HITESH SOLIS on: 01/26/2015 06:02 PM Modules accepted: Orders documented in this encounter Plan of Treatment Upcoming Encounters Date Type Department Care Team (Late st Contact Info) Description 06/03/2024 1:00 PM GENERAL LEDGER ACCOUNTANT Appointment [facility] - Rheumatology [address] [place] [address] [phone] 06/03/2024 2:00 PM GENERAL LEDGER ACCOUNTANT Office Visit [facility] - Rheumatology [address] [place] [address] Gloria Smith MD [address] [place] [phone] documented as of this encounter Procedures Procedure Name Priority Date/Time Associated Diagnosis Comments ERYTHROCYTE SEDIMENTATION RATE Routine 01/07/2015 3:40 PM CDT Rheumatoid arthritis(714.0) ([facility]) CBC W AUTO DIFFERENTIAL Routine 01/07/2015 3:40 PM CDT Rheumatoid arthritis(714.0) ([facility]) COMPREHENSIVE METABOLIC PANEL Routine 01/07/2015 3:40 PM CDT Rheumatoid arthritis(714.0) ([facility]) documented in this encounter Results * SED RATE WESTERGREN (01/07/2015 3:40 PM CDT) Erythrocyte Sedimentation Rate Westergren 4 0 - 20 mm/hr [facility] INSURANCE BILL Blood specimen (specimen) BLOOD SPECIMEN / Unknown 01/07/2015 3:40 PM CDT 01/07/2015 6:19 PM CDT Narrative Resulting Agency Comment [facility] [address] [facility] [id number] Hitesh Solis MD LAB - HEMATOLOGY OR DERABLES [facility] INSURANCE BILL * (ABNORMAL) COMPREHENSIVE METABOLIC PANEL (01/07/2015 3:40 PM CDT) Glucose 136(H) 74 - 106 mg/dL [facility] INSURANCE BILL BUN 22(H) 7 - 21 mg/dL [facility] INSURANCE BILL Creatinine 0.93 0.50 - 1.30 mg/dL [facility] INSURANCE BILL eGFR by MDRD >60 >60 mL/min/1.7 3m2 [facility] INSURANCE BILL eGFR by MDRD >60 >60 mL/min/1.7 3m2 [facility] INSURANCE BILL Sodium 139 136 - 145 mmol/L [facility] INSURANCE BILL Potassium 4.5 3.5 - 5.1 mmol/L [facility] INSURANCE BILL Chloride 107 98 - 107 mmol/L [facility] INSURANCE BILL CO2 22 22 - 31 mmol/L [facility] INSURANCE BILL Calcium 8.7 8.5 - 10.1 mg/dL [facility] INSURANCE BILL Protein Total 6.8 6.4 - 8.2 gm/dL [facility] INSURANCE BILL Albumin 4.2 3.4 - 5.0 gm/dL [facility] INSURANCE BILL Bilirubin Total 0.6 0.2 - 1.0 mg/dL [facility] INSURANCE BILL Alkaline Phosphatase 58 38 - 126 U/L [facility] INSURANCE BILL AST 18 5 - 40 U/L [facility] INSURANCE BILL ALT 37 12 - 78 U/L [facility] INSURANCE BILL Blood specimen (specimen) BLOOD SPECIMEN / Unknown 01/07/2015 3:40 PM CDT 01/07/2015 6:19 PM CDT Narrative Resulting Agency Comment [facility] [address] [facility] ??[facility] [phone] Hitesh Solis MD LAB - CHEMISTRY ORD ERABLES [facility] INSURANCE BILL * (ABNORMAL) CBC W AUTO DIFFERENTIAL (01/07/2015 3:40 PM CDT) WBC 8.8 4.4 - 10.7 x10E9/L [facility] INSURANCE BILL RBC 4.20 3.80 - 5.40 x10E12/L [facility] INSURANCE BILL Hemoglobin 13.1 12.0 - 17.6 gm/dL [facility] INSURANCE BILL Hematocrit 41.4 35.2 - 51.7 % [facility] INSURANCE BILL MCV 98.6(H) 80.7 - 98.3 fL [facility] INSURANCE BILL MCH 31.2 26.7 - 34.0 pg [facility] INSURANCE BILL MCHC 31.6 30.8 - 35.9 gm/dL [facility] INSURANCE BILL RDW 14.2 12.1 - 14.9 % [facility] INSURANCE BILL Platelet Count 173 153 - 416 x10E9/L [facility] INSURANCE BILL Comment:MPV FL BLOOD (SSM) 1 2.7 fl 9.4-12.9 Granulocytes % 76.1(H) 44.0 - 73.0 % [facility] INSURANCE BILL Lymphocytes % 15.3(L) 20.0 - 43.0 % [facility] INSURANCE BILL Monocytes % 6.4 5.0 - 13.0 % [facility] INSURANCE BILL Eosinophils % 1.8 0.0 - 6.0 % [facility] INSURANCE BILL Basophils % 0.2 0.0 - 2.0 % [facility] INSURANCE BILL Granulocytes Absolute 6.65 2.01 - 7.14 x10E9/L [facility] INSURANCE BILL Lymphocytes Absolute 1.34 1.07 - 3.94 x10E9/L [facility] INSURANCE BILL Monocytes Absolute 0.56 0.26 - 1.07 x10E9/L [facility] INSURANCE BILL Eosinophils Absolute 0.16 0 - 0.47 x10E9/L [facility] INSURANCE BILL Basophils Absolute 0.02 0 - 0.08 x10E9/L [facility] INSURANCE BILL Immature Granulocytes 0.2 0 - 1 % [facility] INSURANCE BILL Immature Granulocytes Absolute 0.02 0.00 - 0.06 x10E9/L [facility] INSURANCE BILL nRBC 0 /100 WBC [facility] INSURANCE BILL Blood specimen (specimen) BLOOD SPECIMEN / Unknown 01/07/2015 3:40 PM CDT 01/07/2015 6:19 PM CDT Narrative Resulting Agency Comment [facility] [address] [facility] [id number] Hitesh Solis MD LAB - HEMATOLOGY OR DERABLES [facility] INSURANCE BILL documented in this encounter Visit Diagnoses Diagnosis Rheumatoid arthritis(714.0) ([facility])- Primary Rheumatoid arthritis Chronic pain syndrome Right lumbar radiculopathy Thoracic or lumbosacral neuritis or radiculitis, unspecified Triceps tendonitis Other enthesopathy of elbow region documented in this encounter Administered Medications Administered Medications Medication Order MAR Action Action Date Dose Rate Site Triamcinolone Acetonide Intraarticular Given 01/07/2015 2 mL See comments documented in this encounter Care Teams Production Grip Relationship Specialty Start Date End Date Tomas Hyman MD [address] [facility] [address] [place] [address] PCP - General Family Medicine 12/31/13 05/09/18 Hitesh Solis MD Rheumatology 02/09/11 documented as of this encounter
--- OUTSIDE RECORDS SUMMARY | 2024-05-03 04:12 | XMS_ITS | Encounter Summary ---
Author Organization [facility] Address [address] [facility] [place] [address] Care Team Providers Care [employer] Consultant Name Role Phone Isidro Heredia MD Unavailable [phone] Tomas Hyman MD Primary Care Provider [phone] Encounter Details Date Type Department Care Team (Latest Contact Info) Description 12/21/2014 9:20 AM CDT - 12/21/2014 11:59 PM CDT Hospital Encounter [facility] [address] [place] [address] [place] [address] [place] [address] Discharge Disposition: Home or Self Care Social [...] Sign Reading Time Taken Comments Blood Pressure 135/79 12/21/2014 10:29 AM CDT Pulse 90 12/21/2014 10:29 AM CDT Temperature - - Respiratory Rate 16 12/21/2014 10:29 AM CDT Oxygen Saturation 97% 12/21/2014 10:29 AM CDT Inhaled Oxygen Concentration - - Weight - - Height - - Body Mass Index - - documented in this encounter Discharge Instructions * Patient Instructions* Sagrario Littlejohn RN - 12/21/2014 9:31 AM CDT [facility] Pain Discharge Instructions Selective Epidural [...] headache, or any other problems, please call [phone] or after hours callDr. Mirza at [phone] and tell them your physician's name. The exchange will alert the physician communications intern. If sedation is given: No sedation given. For Your Next Visit: No additional instructions. Other Instructions: May remove band-aid in 12 Hours. Return in one week for KIMBERLEY #2. Patient Signature: Date: RN Signature: Date: documented in this encounter Medications at Time of Discharge Medication Sig Dispensed Refills Start Date End Date Sfkzytcgyer-Qzvshhrtr-U it C-Mn (GLUCOSAMINE CHONDR 1500 COMPLX PO) [...] Procedure Notes * Alejandro Mirza MD - 12/21/2014 10:34 AM CDTAssociated Order(s): PAIN MANAGEMENT PROCEDURE TIME Lumbar KIMBERLEY L5-S1 Chalino Deng Provider: Alejandro Mirza MD 1960 Date: 12/21/2014 Tomas Hyman (General) Pt. presents today for a injection. Allergies: Allergies as of 12/21/2014 - reviewed 12/21/2014 Allergen Reaction Noted ??? Plaquenil [hydroxychloroquine sulfate] 05/15/2011 ??? Tuberculin ppd 07/27/2008 Procedures: Epidural L5-S1 Diagnosis/Indication:Low back pain and/or leg pain 722.10 Other conservative therapies and/or treatments provided inadequate [...] Coumidin, Plavix or other blood thinners. Responsible bus driver supervisor is not needed due to the patient not having sedation. The patient was placed in a prone position and was prepped with Chloraprep. Procedure: Lidocaine 1% was injected with a 25 gauge needle at L5 verifying placement with the guided fluoroscopy. An 18 gauge Touhy needle was placed into the epidural space using loss or resistancetechnique with preservative free (PF) normal saline. No cerebral spinal fluid or blood was aspirated prior to the injection. 80 milligrams of Depo medrol and saline were injected into the epidural space. Complications: None The patient tolerated the procedure well [...] Contact Info) Description 06/03/2024 1:00 PM FIELD CROP FARMWORKER Appointment [facility] - Rheumatology [address] [place] [address] 06/03/2024 2:00 PM FIELD CROP FARMWORKER Office Visit [facility] - Rheumatology [address] [place] [address] Gloria Smith MD [address] [place] [phone] documented as of this encounter Procedures Procedure Name Priority Date/Time Associated Diagnosis Comments PAIN MANAGEMENT PROCEDURE TIME Routine 12/21/2014 10:29 AM CDT Displacement of lumbar intervertebral disc without myelopathy Thoracic or lumbosacral neuritis or radiculitis, unspecified documented in this encounter Results * PAIN MANAGEMENT PROCEDURE TIME (12/21/2014 10:29 AM CDT) Anatomical Region Laterality Modality X-Ray Angiograph y Narrative 12/21/2014 10:34 AM CDT Alejandro Mirza MD ? 12/21/2014 10:34 AM Lumbar KIMBERLEY L5-S1 Chalino Deng ?Provider: Alejandro Mirza MD 1960 ? Date: ?12/21/2014 Tomas Hyman (General) Pt. presents today for a injection. ? Allergies: Allergies as of 12/21/2014 - reviewed 12/21/2014 Allergen Reaction Noted ? ? Plaquenil [hydroxychloroquine sulfate] ??05/15/2011 ? ? Tuberculin ppd ??07/27/2008 Procedures: Epidural L5-S1 ?? Diagnosis/Indication:Low back pain and/or leg pain 722.10 Other conservative therapies and/or treatments provided inadequate [...] site identified, and marked by Dr. Mirza. ??Pt is not on Coumidin, Plavix or other blood thinners. ??Responsible bus driver supervisor is not needed due to the patient not having sedation. The patient was placed in a prone position and was prepped with Chloraprep. Procedure: ??Lidocaine 1% was injected with a 25 gauge needle at L5 verifying placement with the guided fluoroscopy. ??An 18 gauge Touhy needle was placed into the epidural space using loss or resistance technique with preservative free (PF) normal saline. ?? No cerebral spinal fluid or blood was aspirated prior to the injection. ??80 milligrams of Depo medrol and saline were injected into the epidural space. Complications: ??None The patient tolerated the procedure well and [...] DC to home. ??Pt survey given. Procedure code: ??Epi Lum/cad, Flouro [...] mg, Intramuscular, INTRA-PROCEDURE ONCE, 1 dose, On 12/21/14 at 0934 $ Admin. by Other Provider 12/21/2014 10:20 AM CDT 80 mg Back documented in this encounter Care Teams [employer] Consultant Relationship Specialty Start Date End Date Tomas Hyman MD [address] [facility] [address] [place] [address] PCP - General Family Medicine 12/31/13 05/09/18 Isidro Heredia MD Rheumatology 02/09/11 documented as of this encounter
--- OUTSIDE RECORDS SUMMARY | 2024-05-03 04:12 | XMS_ITS | Encounter Summary ---
Author Organization [facility] Address [address] [facility] [place] [address] Care Team Providers Care Commercial Glazier Name Role Phone Isidro Heredia MD Unavailable [phone] Tomas Hyman MD Primary Care Provider [phone] Reason for Visit * Treatment (Routine) - Closed Specialty Diagnoses / Procedures Referred By Lawrence shah Referred To Contact Infusion Therapy Nurse Diagnoses Rheumatoid arthritis(714.0) ([facility]) Procedures [place] INJECTION TOCILIZUMAB 1 MG Isidro Heredia MD [address] [place] [address] [address] Referral ID Status Reason Start Date Expiration Date Visits Re quested Visits Authorized [id number] Closed 05/08/2014 10/05/2014 1 6 Encounter Details Date Type Department Care Team (Late st Contact Info) Description 06/08/2014 3:53 PM BEHAVIORAL ASSISTANT - 06/08/2014 11:59 PM BEHAVIORAL ASSISTANT Hospital Encounter [facility] Medical [facility] - Rheumatology [address] [place] [address] Isidro Heredia MD [address] [place] [address] Discharge Disposition: Home or Self [...] Sign Reading Time Taken Comments Blood Pressure 141/94 06/08/2014 4:15 PM BEHAVIORAL ASSISTANT Pulse 107 06/08/2014 4:15 PM BEHAVIORAL ASSISTANT Temperature 36.8 ??C (98.2 ??F) 06/08/2014 4:15 PM CS T Respiratory Rate 16 06/08/2014 4:15 PM BEHAVIORAL ASSISTANT Oxygen Saturation - - Inhaled Oxygen Concentration - - Weight - - Height - - Body Mass Index - - documented in this encounter Discharge Instructions * Discharge Instructions* Carlos Foreman RN - 06/08/2014 4:59 PM BEHAVIORAL ASSISTANT [place] [facility] Post Infusion instructions You have received [...] through Sunday 9-5 call the office at [phone] After hours or on the weekend call the exchange at [phone] If you have had lab work done [...] have chosen [facility] as your provider. Carlos Foreman RN VIORAL ASSISTANT documented in this encounter Medications at Time of Discharge Medication Sig Dispensed Refills Start Date End Date Icxokoexetc-Dhlvbkvso-Jr t C-Mn (GLUCOSAMINE CHONDR 1500 COMPLX PO) [...] as needed for Pain. 120 Tab 0 05/22/2014 07/13/2014 predniSONE (DELTASONE) 10 MG tablet TAKE 1 TABLET BY MOUTH 2 TIMES A DAY 180 Tab 3 07/17/2013 11/05/2014 risedronate Sodium (ACTONEL) 150 MG tablet Take 1 Tab by mouth every 30 days. 3 Tab 3 06/08/2014 07/13/2014 tamsulosin CR 24hr (FLOMAX) 0.4 MG capsule Take 1 Cap by mouth once daily. Take 30 minutes after a meal at the same time each day. 30 Cap 5 11/11/2012 08/12/2014 tocilizumab 20 MG/ML in 0.9% NaCl 0.9 % 100 mLIndications:Rheumatoid arthritis(714.0) ([facility]) Pt to receive IV infusion 800mg Actemra/100cc0.9%norm al saline, per nasir Avila's office practice of Actemra 8mg/kg over 60 minutes and the Actemra schedule; first dose, then every 4 weeks thereafter, unless further orders received from . Exp 09/04/2014 09/04/2013 09/04/2014 documented as of this encounter OR Notes * Brief Op Note - Carlos Foreman RN - 06/08/2014 5:11 PM CST JOSE Deng [id number] 06/08/2014 Diagnosis: Rheumatoid arthritis [714.0]. Patient questionnaire results Health Assessment Questionnaire BP 141/94 Pulse 107 Temp(Src) 98.2 ??F Resp 16 @ MEDICATIONS FOR CURRENT ENCOUNTER: ?? SCHEDULED MEDICATIONS: ?? [COMPLETED] Tocilizumab 800 mg in 0.9% NaCl IVPB, Intravenous, Once ?? CONTINUOUS MEDICATIONS: ?? No current facility-administered medications for this encounter. PRN MEDICATIONS: No current facility-administered medications for this encounter. ?? Number of 24 gauge .75 inch placed in Left forearm ?? 1 attempt(s). Patient monitored throughout procedure. Tolerated well? Yes Next treatment? 4wk Carlos Foreman RN VIORAL ASSISTANT documented in this encounter Plan of Treatment Upcoming Encounters Date Type Department Care Team (Late st Contact Info) Description 06/03/2024 1:00 PM BEHAVIORAL ASSISTANT Appointment [facility] - Rheumatology [address] [place] [address] 06/03/2024 2:00 PM BEHAVIORAL ASSISTANT Office Visit [facility] - Rheumatology [address] [place] [address] Gloria Smith MD [address] [place] [phone] documented as of this encounter Visit Diagnoses Diagnosis Rheumatoid arthritis(714.0) (HCC) Rheumatoid arthritis documented in this encounter Administered Medications Inactive Administered Medications - up to 3 most recent administrations Medication Order MAR Action Action Date Dose Rate Site Tocilizumab 800 mg in 0.9% NaCl IVPB 800 mg, at 140 mL/hr, Intravenous, ONCE, 1 dose, On Sun06/08/14 at 1345, 2 vials used of Actemra 400MG [facility] [id number] with 0 WASTE $ Given 06/08/2014 4:10 PM BEHAVIORAL ASSISTANT 800 mg 140 m L/hr documented in this encounter Care Teams Commercial Glazier Relationship Specialty Start Date End Date Tomas Hyman MD [address] [place] [address] PCP - General Family Medicine 12/31/13 05/09/18 Isidro Heredia MD Rheumatology 02/09/11 documented as of this encounter
--- OUTSIDE RECORDS SUMMARY | 2024-05-03 04:12 | XMS_ITS | Encounter Summary ---
Author Organization [facility] Address [address] [facility] [place] [address] Care Team Providers Care Care Giver Name Role Phone Isidro Heredia MD Unavailable [phone] Tomas Hyman MD Primary Care Provider [phone] Reason for Visit * Reason Comments Pain Back lower back; aching Pain Knee bilat knee pain;achi ng;swelling * Evaluate & Treat (Routine) - Closed Specialty Diagnoses / Procedures Referred By Lawrence t Referred To Contact Diagnoses Rheumatoid arthritis(714.0) (HCC) Procedures [place] OFFICE VISIT DURING HOURS Tomas Hyman MD [address] [place] [address] Isidro Heredia MD [address] [place] [address] Referral ID Status Reason Start Date Expiration Date Visits Re quested Visits Authorized [id number] Closed 08/12/2014 02/08/2015 3 3 Encounter Details Date Type Department Care Team (Late st Contact Info) Description 10/07/2014 2:15 PM CDT Office Visit [facility] - Rheumatology [address] [place] [address] Isidro Heredia MD [address] [facility] [place] [address] Rheumatoid arthritis(714.0) (HCC) (Primary Dx); [...] Time Taken Comments Blood Pressure 135/78 10/07/2014 2:45 PM CDT Pulse 102 10/07/2014 2:45 PM CDT Temperature - - Respiratory Rate - - Oxygen Saturation - - Inhaled Oxygen Concentration - - Weight 117 kg (258 lb) 10/07/2014 2:45 PM CDT Height - - Body Mass Index 37.02 08/12/2014 10:45 AM CDT documented in this encounter Progress Notes * Isidro Heredia MD - 10/07/2014 3:11 PM CDT Subjective: Chalino Deng 53 y.o. male is here for Chief Complaint Patient presents with ??? Pain Back lower back; aching ??? Pain Knee bilat knee pain;aching;swelling HPI: On actemra mtx pred 10 mg/bidfor ra neurontin percocet Skelaxin for chronic pain He had cardiac cath For cp sob Nl exam ef 50% Pain Level 7/10 knees lbp He had had 5 epid injections which helped Am stiffness 2 hr Global 8/10 Fatigue yes Medication Side Effects no Current Outpatient Prescriptions on File Prior to Visit Medication Sig Dispense Refill ??? metaxalone (SKELAXIN) 800 MG tablet TAKE 1 TABLET THREE TIMES A DAY 270 Tab 1 ??? oxyCODONE-acetaminophen (PERCOCET) 5-325 MG tablet Take 1 Tab by mouth every 6 hours as needed for Pain. 120 Tab 0 ??? alendronate (FOSAMAX) 70 MG tablet Take [...] Vitamins-Minerals (OCUVITE PO) Take by mouth. ??? predniSONE (DELTASONE) 10 MG tablet TAKE 1 TABLET BY MOUTH 2 TIMES A DAY 180 Tab 3 ??? fish oil/omega-3 fatty acids (FISH OIL) 1000 MG capsule Take 1,000 mg by mouth 2 times daily. ??? Multiple Vitamin (MULTI-VITAMIN PO) Take by mouth once daily. ??? Gdxnctgpvtr-Xgajlvbkc-Bxc C-Mn (GLUCOSAMINE CHONDR 1500 COMPLX PO) Take [...] heart lungs Objective: General Appearance Physical Exam: obese wm in nad BP 135/78 mmHg Pulse 102 Wt 117.028 kg (258 lb) Head: perrla, eyes no irritation, vision and hearing intact, no oral ulcers, tongue normal, throat clear Neck:supple, no bruits, adenopathy Chest: clear, no rales, rhonchi or wheezes. Heart nsr. No S3,S4, or murmurs Abdomen:soft, no masses or tenderness, no organomegaly Genitalia, Groin, Buttocks: Back: no abnormal curvature, tenderness, or muscle spasm Extremities: No edema, cyanosis, or rash RUE: 2/TJ, 2/SJ, 0/muscle tenderness or weakness LUE: 2/TJ, 2/SJ, 0/muscle tenderness or weakness RLE: 1/TJ, 1/SJ, 0/muscle tenderness or weakness LLE: 1/TJ, 1/SJ, 0/muscle tenderness or weakness Assessment: Encounter Diagnoses Name Primary? Rheumatoid arthritis(714.0) Yes ??? Chronic pain syndrome poorly controlled ra and chronic pain Same meds Plan: Plan No orders of the defined types were placed in this encounter. Follow up in office in 4 weeks documented in this encounter Plan of Treatment Upcoming Encounters Date Type Department Care Team (Late st Contact Info) Description 06/03/2024 1:00 PM SUPERVISOR WHIPPED TOPPING Appointment [facility] - Rheumatology [address] [place] [phone] 06/03/2024 2:00 PM SUPERVISOR WHIPPED TOPPING Office Visit [facility] - Rheumatology [address] [place] [phone] Gloria Smith MD [address] [place] [phone] documented as of this encounter Visit Diagnoses Diagnosis Rheumatoid arthritis(714.0) ([facility])- Primary Rheumatoid arthritis Chronic pain syndrome documented in this encounter Care Teams Care Giver Relationship Specialty Start Date End Date Tomas Hyman MD [address] [facility] [address] [place] [address] PCP - General Family Medicine 12/31/13 05/09/18 Isidro Heredia MD Rheumatology 02/09/11 documented as of this encounter
--- OUTSIDE RECORDS SUMMARY | 2024-05-03 04:12 | XMS_ITS | Encounter Summary ---
Author Organization [facility] Address [address] [place] [address] Care Team Providers Care Cover Machine Operator Name Role Phone Isidro Heredia MD Unavailable Tomas Hyman MD Primary Care Provider Reason for Visit * Reason Comments Rheumatoid Arthritis * Evaluate & Treat (Routine) - Closed Specialty Diagnoses / Procedures Referred By Lawrence t Referred To Contact Diagnoses Rheumatoid arthritis(714.0) (HCC) Procedures [place] OFFICE VISIT DURING HOURS Tomas Hyman MD [address] [facility] [address] [place] [address] Isidro Heredia MD [address] [place] [address] Referral ID Status Reason Start Date Expiration Date Visits Re quested Visits Authorized [id number] Closed 02/10/2014 02/10/2015 6 6 Encounter Details Date Type Department Care Team (Late st Contact Info) Description 07/13/2014 4:15 PM CDT Office Visit [facility] Medical [facility] - Rheumatology [address] [place] [address] Isidro Heredia MD [address] [place] [address] Rheumatoid arthritis(714.0) (HCC) (Primary Dx) Social History Tobacco Use [...] Progress Notes * Isidro Heredia MD - 07/13/2014 5:19 PM CDT Subjective: Chalino Deng 53 y.o. male is here for Chief Complaint Patient presents with ??? Rheumatoid Arthritis HPI: We had a 45 min consultation discussing his failed 10 yr tx of ra And now at the point he is no longer able to pursue any type of gainful employment unles another biologic becomes available which could help him Current Outpatient Prescriptions on File Prior to Visit Medication Sig Dispense Refill ??? pravastatin (PRAVACHOL) 20 MG tablet Take [...] TIMES A DAY 180 Tab 3 ??? tamsulosin CR 24hr (FLOMAX) 0.4 MG capsule Take 1 Cap by mouth once daily. Take 30 minutes after a meal at the same time each day. 30 Cap 5 ??? fish oil/omega-3 fatty acids (FISH OIL) 1000 MG capsule Take 1,000 mg by mouth 2 times daily. ??? Multiple Vitamin (MULTI-VITAMIN PO) Take by mouth once daily. ??? Aencnaxsdxs-Sdujrkwqu-Qoc C-Mn (GLUCOSAMINE CHONDR 1500 COMPLX PO) Take by mouth once daily. ??? ZYRTEC 10 MG TABS Take 10 mg by mouth once daily. Seasonal (nov. Current Facility-Administered Medications on File Prior to Visit Medication Dose Route Frequency Provider Last Rate Last Dose ??? [COMPLETED] Tocilizumab 800 mg in 0.9% NaCl IVPB 800 mg Intravenous Once Isidro Heredia MD 800 mg at 07/13/14 1450 Patient Active Problem List Diagnosis ??? Rheumatoid [...] Systems reviewed Objective: General Appearance Physical Exam: There were [...] spasm Extremities: No edema, cyanosis, or rash Assessment: Encounter Diagnoses Name Primary? Rheumatoid arthritis Yes Plan: Plan Orders Placed This Encounter ??? oxyCODONE-acetaminophen (PERCOCET) 5-325 MG tablet Sig: Take 1 Tab by mouth every 6 hours as needed for Pain. Dispense: 120 Tab Refill: 0 ??? risedronate Sodium (ACTONEL) 150 MG tablet Sig: Take 1 Tab by mouth every 30 days. Dispense: 3 Tab Refill: 3 Follow up in office in 4 weeks documented in this encounter Plan of Treatment Upcoming Encounters Date Type Department Care Team (Late st Contact Info) Description 06/03/2024 1:00 PM ALTERATION TAILOR Appointment [facility] - Rheumatology [address] [place] [address] [phone] 06/03/2024 2:00 PM ALTERATION TAILOR Office Visit [facility] - Rheumatology [address] [place] [phone] Gloria Smith MD [address] [place] [phone] documented as of this encounter Visit Diagnoses Diagnosis Rheumatoid arthritis(714.0) ([facility])- Primary Rheumatoid arthritis documented in this encounter Care Teams Cover Machine Operator Relationship Specialty Start Date End Date Tomas Hyman MD [address] [facility] [address] [place] [address] PCP - General Family Medicine 12/31/13 05/09/18 Isidro Heredia MD Rheumatology 02/09/11 documented as of this encounter
--- OUTSIDE RECORDS SUMMARY | 2024-05-03 04:12 | XMS_ITS | Encounter Summary ---
Author Organization [facility] Address [address] [place] [address] Care Team Providers Care Pot Puncher Name Role Phone Isidro Heredia MD Unavailable [phone] Tomas Hyman MD Primary Care Provider [phone] Encounter Details Date Type Department Care Team (Latest Contact Info) Description 04/28/2014 9:58 AM BOILER TESTING TECHNICIAN - 04/28/2014 11:59 PM BOILER TESTING TECHNICIAN Hospital Encounter [facility] Pain Care [address] [place] [address] [place] [address] [place] [id number] Discharge Disposition: Home or Self Care Social [...] Sign Reading Time Taken Comments Blood Pressure 156/97 04/28/2014 10:26 AM BOILER TESTING TECHNICIAN Pulse 97 04/28/2014 10:26 AM BOILER TESTING TECHNICIAN Temperature - - Respiratory Rate 16 04/28/2014 10:26 AM BOILER TESTING TECHNICIAN Oxygen Saturation 97% 04/28/2014 10:26 AM BOILER TESTING TECHNICIAN Inhaled Oxygen Concentration - - Weight - - Height - - Body Mass Index - - documented in this encounter Discharge Instructions * Patient Instructions* Naomi Cain RN - 04/28/2014 10:10 AM BOILER TESTING TECHNICIAN [facility] Procedure Center Pain Discharge Instructions Selective [...] headache, or any other problems, please call [phone] or after hours callDr. Mirza at [phone] and tell them your physician's name. The exchange will alert the physician talent development consultant. If sedation is given: No sedation given. For Your Next Visit: No additional instructions. Other Instructions: May remove band-aid in 12 Hours. Return 2 week follow up. Patient Signature: Date: RN Signature: Date: ER TESTING TECHNICIAN documented in this encounter Medications at Time of Discharge Medication Sig Dispensed Refills Start Date End Date Qcdjnayqfke-Dfhdigynm-Mw t C-Mn (GLUCOSAMINE CHONDR 1500 COMPLX PO) [...] oxyCODONE-acetaminophen (PERCOCET) 5-325 MG tabletIndications:Rheuma toid arthritis(714.0) ([facility]) Take 1 Tab by mouth [...] 0.9% NaCl 0.9 % 100 mLIndications:Rheumatoid arthritis(714.0) ([facility]) Pt to receive IV infusion 800mg Actemra/100cc0.9%norm al saline, per nasir Avila's office practice of Actemra 8mg/kg over 60 minutes and the Actemra schedule; first dose, then every 4 weeks thereafter, unless further orders received from . Exp 09/04/2014 09/04/2013 09/04/2014 documented as of this encounter Procedure Notes * Alejandro Mirza MD - 04/28/2014 10:31 AM CSTAssociated Order(s): PAIN MANAGEMENT PROCEDURE TIME Lumbar KIMBERLEY L5-S1 Chalino Deng Provider: Alejandro Mirza MD 1960 Date: 04/28/2014 Tomas Hyman Pt. presents today for a injection. Allergies: Allergies as of 04/28/2014 - reviewed 04/28/2014 Allergen Reaction Noted ??? Plaquenil [hydroxychloroquine sulfate] [...] Coumidin, Plavix or other blood thinners. Responsible driver service technician is not needed due to the patient [...] Follow Up: 1 week Alejandro Mirza MD ER TESTING TECHNICIAN documented in this encounter Plan of Treatment Upcoming Encounters Date Type Department Care Team (Late st Contact Info) Description 06/03/2024 1:00 PM BOILER TESTING TECHNICIAN Appointment [facility] - Rheumatology [address] [place] [address] 06/03/2024 2:00 PM BOILER TESTING TECHNICIAN Office Visit [facility] - Rheumatology [address] [place] [address] Gloria Smith MD [address] [place] [address] [phone] documented as of this encounter Procedures Procedure Name Priority Date/Time Associated Diagnosis Comments PAIN MANAGEMENT PROCEDURE TIME Routine 04/28/2014 10:24 AM BOILER TESTING TECHNICIAN Displacement Of Lumbar Intervertebral Disc Without Myelopathy Thoracic or lumbosacral neuritis or radiculitis, unspecified documented in this encounter Results * PAIN MANAGEMENT PROCEDURE TIME (04/28/2014 10:24 AM BOILER TESTING TECHNICIAN) Anatomical Region Laterality Modality X-Ray Angiograph y Narrative 04/28/2014 10:31 AM BOILER TESTING TECHNICIAN Alejandro Mirza MD ? 04/28/2014 10:31 AM Lumbar KIMBERLEY L5-S1 Chalino Deng ?Provider: Alejandro Mirza MD 1960 ? Date: ?04/28/2014 Tomas Hyman Pt. presents today for a injection. ? Allergies: Allergies as of 04/28/2014 - reviewed 04/28/2014 Allergen Reaction Noted ? ? Plaquenil [hydroxychloroquine [...] Coumidin, Plavix or other blood thinners. ??Responsible driver service technician is not needed due to the patient [...] acetate (DEPO-MEDROL) injection 80 mg 80 mg, Epidural, INTRA-PROCEDURE ONCE, 1 dose, On Sun04/28/14 at 1010, Administer per physician direction. May be administered as 80 mg unilaterally once, or 40 mg bilaterally once (2 separate doses). $ Admin. by Other Provider 04/28/2014 10:19 AM BOILER TESTING TECHNICIAN 80 mg documented in this encounter Care Teams Pot Puncher Relationship Specialty Start Date End Date Tomas Hyman MD [address] [facility] [address] [place] [address] PCP - General Family Medicine 12/31/13 05/09/18 Isidro Heredia MD Rheumatology 02/09/11 documented as of this encounter
--- OUTSIDE RECORDS SUMMARY | 2024-05-03 04:12 | XMS_ITS | Encounter Summary ---
Author Organization [facility] Address [address] [place] [address] Care Team Providers Care Creative Assistant Name Role Phone Isidro Heredia MD Unavailable Tomas Hyman MD Primary Care Provider Reason for Visit * Reason Comments Rheumatoid Arthritis * Evaluate & Treat (Routine) - Closed Specialty Diagnoses / Procedures Referred By Lawrence shah Referred To Contact Diagnoses Rheumatoid arthritis(714.0) (HCC) Procedures [place] OFFICE VISIT DURING HOURS Tomas Hyman MD [address] [facility] [address] [place] [address] Isidro Heredia MD [address] [place] [address] Referral ID Status Reason Start Date Expiration Date Visits Re quested Visits Authorized [id number] Closed 02/10/2014 02/10/2015 6 6 Encounter Details Date Type Department Care Team (Late st Contact Info) Description 06/08/2014 4:45 PM SUPERVISOR DETASSELING CREW Office Visit [facility] Medical [facility] - Rheumatology [address] [place] [address] Isidro Heredia MD [address] [place] [address] Rheumatoid arthritis (HCC) (Primary Dx); Chronic pain syndrome; Lumbar radiculopathy Social History Tobacco Use Types Packs/Day [...] Time Taken Comments Blood Pressure 141/94 06/08/2014 5:26 PM SUPERVISOR DETASSELING CREW Pulse 107 06/08/2014 5:26 PM SUPERVISOR DETASSELING CREW Temperature - - Respiratory Rate - - Oxygen Saturation - - Inhaled Oxygen Concentration - - Weight 115.7 kg (255 lb) 06/08/2014 5:26 PM SUPERVISOR DETASSELING CREW Height - - Body Mass Index 36.59 05/11/2014 9:22 AM SUPERVISOR DETASSELING CREW documented in this encounter Progress Notes * Isidro Heredia MD - 06/08/2014 5:40 PM CST Subjective: Chalino Deng 53 y.o. male is here for Chief Complaint Patient presents with ??? Rheumatoid Arthritis HPI: On mtx actemra Fpred 10 mg bid for ra And neurontion Skelaxin percocet for chronic pain Pain Level 8/10 neck and bacl Am stiffness 2 hrs Global 8/10 Fatigue yes Medication Side Effects no Current Outpatient Prescriptions on File Prior to Visit Medication Sig Dispense Refill ??? oxyCODONE-acetaminophen (PERCOCET) 5-325 MG tablet Take 1 Tab by mouth every 6 hours as needed for Pain. 120 Tab 0 ??? gabapentin (NEURONTIN) 300 MG [...] PO) Take by mouth once daily. ??? Rtqzregzcuw-Jmsbcnlmf-Ffe C-Mn (GLUCOSAMINE CHONDR 1500 COMPLX PO) Take by mouth once daily. ??? ZYRTEC 10 MG TABS Take 10 mg by mouth once daily. Seasonal (nov. Current Facility-Administered Medications on File Prior to Visit Medication Dose Route Frequency Provider Last Rate Last Dose ??? [COMPLETED] Tocilizumab 800 mg in 0.9% NaCl IVPB 800 mg Intravenous Once Isidro Heredia MD 800 mg at 06/08/14 1610 Patient Active Problem List Diagnosis ??? Rheumatoid [...] reviewed Objective: General Appearance Physical Exam: BP 141/94 Pulse 107 Wt 115.667 kg (255 lb) Head: perrla, eyes no irritation, vision and hearing intact, no oral ulcers, tongue normal, throat clear Neck:supple, no bruits, adenopathy Chest: clear, no rales, rhonchi or wheezes. Heart nsr. No S3,S4, or murmurs Abdomen:soft, no masses or tenderness, no organomegaly Genitalia, Groin, Buttocks: Back: no abnormal curvature, tenderness, or muscle spasm Extremities: No edema, cyanosis, or rash RUE: 1133/TJ, 7/SJ, 0/muscle tenderness or weakness LUE: 13/TJ, 06SJ, 0/muscle tenderness or weakness RLE: 1/TJ, 1/SJ, 0/muscle tenderness or weakness LLE: 1/TJ, 1/SJ, 0/muscle tenderness or weakness Assessment: Encounter Diagnoses Name Primary? Rheumatoid arthritis Yes ??? Chronic pain syndrome ??? Lumbar radiculopathy Poorly controlled ra and chronic pain Plan: Plan Orders Placed This Encounter ??? naproxen (NAPROSYN) 500 MG tablet Sig: Take 1 Tab by mouth 2 times daily. Dispense: 180 Tab Refill: 3 ??? risedronate Sodium (ACTONEL) 150 MG tablet Sig: Take 1 Tab by mouth every 30 days. Dispense: 3 Tab Refill: 3 Follow up in office in 4 weeks RVISOR DETASSELING CREW documented in this encounter Plan of Treatment Upcoming Encounters Date Type Department Care Team (Late st Contact Info) Description 06/03/2024 1:00 PM SUPERVISOR DETASSELING CREW Appointment [facility] - Rheumatology [address] [place] [address] 06/03/2024 2:00 PM SUPERVISOR DETASSELING CREW Office Visit [facility] - Rheumatology [address] [place] [address] Gloria Smith MD [address] [place] [id number] documented as of this encounter Visit Diagnoses Diagnosis Rheumatoid arthritis(714.0) ([facility])- Primary Rheumatoid arthritis Chronic pain syndrome Lumbar radiculopathy Thoracic or lumbosacral neuritis or radiculitis, unspecified documented in this encounter Care Teams Creative Assistant Relationship Specialty Start Date End Date Tomas Hyman MD [address] [facility] [address] [place] [address] PCP - General Family Medicine 12/31/13 05/09/18 Isidro Heredia MD Rheumatology 02/09/11 documented as of this encounter
--- OUTSIDE RECORDS SUMMARY | 2024-05-03 04:12 | XMS_ITS | Encounter Summary ---
Author Organization [facility] Address [address] [place] [address] Care Team Providers Care Network Announcer Name Role Phone Isidro Heredia MD Unavailable [phone] Tomas Hyman MD Primary Care Provider [phone] Reason for Visit * Treatment (Routine) - Closed Specialty Diagnoses / Procedures Referred By Lawrence shah Referred To Contact Infusion Therapy Nurse Diagnoses Rheumatoid arthritis(714.0) ([facility]) Procedures SD INJECTION TOCILIZUMAB 1 MG Isidro Heredia MD [address] [place] [address] [id number] Referral ID Status Reason Start Date Expiration Date Visits Re quested Visits Authorized [id number] Closed 05/08/2014 10/05/2014 1 6 Encounter Details Date Type Department Care Team (Late st Contact Info) Description 05/11/2014 8:58 AM MANAGER OF CASE MANAGEMENT - 05/11/2014 11:59 PM MANAGER OF CASE MANAGEMENT Hospital Encounter [facility] Medical [facility] - Rheumatology [address] [place] [address] Isidro Heredia MD [address] [place] [address] Discharge Disposition: Home or Self [...] Sign Reading Time Taken Comments Blood Pressure 165/100 05/11/2014 9:22 AM MANAGER OF CASE MANAGEMENT Pulse 84 05/11/2014 9:22 AM MANAGER OF CASE MANAGEMENT Temperature 36.9 ??C (98.5 ??F) 05/11/2014 9:22 AM CS T Respiratory Rate 16 05/11/2014 9:22 AM MANAGER OF CASE MANAGEMENT Oxygen Saturation - - Inhaled Oxygen Concentration - - Weight 117.9 kg (260 lb) 05/11/2014 9:22 AM MANAGER OF CASE MANAGEMENT Height 177.8 cm (5' 10 ) 05/11/2014 9:22 AM MANAGER OF CASE MANAGEMENT Body Mass Index 37.31 05/11/2014 9:22 AM MANAGER OF CASE MANAGEMENT documented in this encounter Discharge Instructions * Discharge Instructions* Mirela Rodrigez RN - 05/11/2014 9:38 AM MANAGER OF CASE MANAGEMENT NE Rheumatology Post Infusion instructions You have [...] rash or breathing problems please call your [facility] Rheumatology physician for further instructions. While most problems that occur around the time of an infusion are very mild and not dangerous, they should not be ignored. Sunday through 01-02 call the office at [phone] After hours or on the weekend call the exchange at [phone] If you have had lab work done [...] [facility] as your provider. Mirela Rodrigez RN GER OF CASE MANAGEMENT documented in this encounter Medications at Time of Discharge Medication Sig Dispensed Refills Start Date End Date Eoybjfwcsrf-Atozgjbnl-Wd t C-Mn (GLUCOSAMINE CHONDR 1500 COMPLX PO) [...] oxyCODONE-acetaminophen (PERCOCET) 5-325 MG tabletIndications:Rheuma toid arthritis(714.0) ([facility]) Take 1 Tab by mouth every 6 [...] as of this encounter Progress Notes * Mirela Rodrigez RN - 05/11/2014 6:39 PM CST I spoke to Dr Heredia about the circumstances with Mr Deng, then I called Mr Deng to let him know that Dr Heredia wants him to keep his appt with Dr Mirza, pain management tomorrow, and his appt with Dr Heredia on the but he does not want him to ignore any heart flutterying--he should call his PCP or Dr Heredia so he can be further evaluated. Mr Deng agreed to the plan and thankedme for my concern. GER OF CASE MANAGEMENT * Mirela Rodrigez RN - 05/11/2014 9:34 AM CST JOSE Deng [id number] 05/11/2014 Pt denies symptoms of infection or antibiotic use, no open wounds, or recent surgery, or plans for surgery in the next couple of weeks. Pt is aware that we use the 0-10 pain scale to assess discomfort. 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 front end specialist pt signs consent for treatment for this infusion. Pt verbalizes feelings of great frustration with his chronic pain to the point that he became tearful.His BP washigh and he said that at times he is having an irregular heart beat. He has had it investigated buthe said he just doesn't want to deal with more health issues. At this time his heart rate is regular with no ectopic beats auscultated. Pt does believe that his pain injections have helped but he hasbeen off work d/t the chronic pain so his employer pulled a special project from him. I took time to talk to pt about his worth and that he needs to talk to Dr Heredia. Dr Heredia does not arrive till noon today and I informed the pt that I would discuss his situation with Dr Heredia and one of us would get back to him. BP 165/100 Pulse 84 Temp(Src) 98.5 ??F Resp 16 Wt 117.935 kg (260 lb) BMI 37.31 kg/m2 @ MEDICATIONS FOR CURRENT ENCOUNTER: ?? SCHEDULED MEDICATIONS: ?? Tocilizumab 800 mg in 0.9% NaCl IVPB, Intravenous, Once ?? Number of 24 gauge 3/4 inch placed in Left hand ?? 1 attempt(s). Patient monitored throughout procedure. Tolerated well? Yes Next treatment? 4 weeks Mirela Rodrigez RN GER OF CASE MANAGEMENT documented in this encounter Plan of Treatment Upcoming Encounters Date Type Department Care Team (Late st Contact Info) Description 06/03/2024 1:00 PM MANAGER OF CASE MANAGEMENT Appointment [facility] - Rheumatology [address] [place] [address] 06/03/2024 2:00 PM MANAGER OF CASE MANAGEMENT Office Visit [facility] - Rheumatology [address] [place] [address] Gloria Smith MD [address] [place] [phone] documented as of this encounter Visit Diagnoses Diagnosis Rheumatoid arthritis(714.0) (HCC) Rheumatoid arthritis documented in this encounter Administered Medications Inactive Administered Medications - up to 3 most recent administrations Medication Order MAR Action Action Date Dose Rate Site Tocilizumab 800 mg in 0.9% NaCl IVPB 800 mg, at 140 mL/hr, Intravenous, ONCE, 1 dose, On 05/11/14 at 0830, 2 vials used of Actemra 400MG [facility] [phone] with 0 WASTE $ Given 05/11/2014 9:32 AM MANAGER OF CASE MANAGEMENT 800 mg 140 m L/hr documented in this encounter Care Teams Network Announcer Relationship Specialty Start Date End Date Tomas Hyman MD [address] [facility] [address] [place] [address] PCP - General Family Medicine 12/31/13 05/09/18 Isidro Heredia MD Rheumatology 02/09/11 documented as of this encounter
--- OUTSIDE RECORDS SUMMARY | 2024-05-03 04:12 | XMS_ITS | Encounter Summary ---
Author Organization [facility] Address [address] [facility] [place] [address] Care Team Providers Care System Developer Associate Manager Name Role Phone Isidro Heredia MD Unavailable [phone] Tomas Hyman MD Primary Care Provider [phone] Reason for Visit * Reason Onset Date Comments Follow-up 07/07/2014 Encounter Details Date Type Department Care Team (Late st Contact Info) Description 07/07/[address] [facility] - Rheumatology [address] [place] [address] Isidro Heredia MD [address] [place] [address] Follow-up Social History Tobacco Use Types [...] Telephone Encounter - Rea Hagan MA - 07/13/2014 3:17 PM CDT Pt will come in today for ov and infusion. Will discuss forms then * Telephone Encounter - Erika Julien - 07/07/2014 2:49 PM CDT Pt is waiting for July to call him back about the forms documented in this encounter Plan of Treatment Upcoming Encounters Date Type Department Care Team (Late st Contact Info) Description 06/03/2024 1:00 PM BOARDER STEAM Appointment [facility] - Rheumatology [address] [place] [address] 06/03/2024 2:00 PM BOARDER STEAM Office Visit [facility] - Rheumatology [address] [place] [address] Gloria Smith MD [address] [place] [phone] documented as of this encounter Visit Diagnoses Not on filedocumented in this encounter Care Teams System Developer Associate Manager Relationship Specialty Start Date End Date Tomas Hyman MD [address] [place] [address] PCP - General Family Medicine 12/31/13 05/09/18 Isidro Heredia MD Rheumatology 02/09/11 documented as of this encounter
--- OUTSIDE RECORDS SUMMARY | 2024-05-03 04:12 | XMS_ITS | Encounter Summary ---
Author Organization [facility] Address [address] [facility] [place] [address] Care Team Providers Care Mix House Tender Name Role Phone Isidro Heredia MD Unavailable [phone] Tomas Hyman MD Primary Care Provider [phone] Reason for Visit * Reason Comments Refill Request Encounter Details Date Type Department Care Team (Late Contact Info) Description 11/25/2014 Refill [facility] - Rheumatology [address] [place] [address] Isidro Heredia MD [address] [place] [address] Refill Request Social History Tobacco Use [...] (Late Contact Info) Description 06/03/2024 1:00 PM BIRTH CERTIFICATE CLERK Appointment [facility] - Rheumatology [address] [place] [address] 06/03/2024 2:00 PM BIRTH CERTIFICATE CLERK Office Visit [facility] Rheumatology [address] [place] [address] Gloria Smith MD [address] [place], [place] [address] [address] documented as of this encounter Visit Diagnoses Not on filedocumented in this encounter Care Teams Mix House Tender Relationship Specialty Start Date End Date Tomas Hyman MD [address] [place] [address] PCP - General Family Medicine 12/31/13 05/09/18 Isidro Heredia MD Rheumatology 02/09/11 documented as of this encounter
--- OUTSIDE RECORDS SUMMARY | 2024-05-03 04:12 | XMS_ITS | Encounter Summary ---
Author Organization [facility] Address [address] [place] [address] Care Team Providers Care Personal Financial Counselor Name Role Phone Isidro Heredia MD Unavailable [phone] Tomas Hyman MD Primary Care Provider Reason for Visit * Reason Comments Rheumatoid Arthritis * Evaluate & Treat (Routine) - Closed Specialty Diagnoses / Procedures Referred By Lawrence shah Referred To Contact Diagnoses Rheumatoid arthritis(714.0) (HCC) Procedures IN OFFICE VISIT DURING HOURS Tomas Hyman MD [address] [place] [address] Isidro Heredia MD [address] [place] [id number] Referral ID Status Reason Start Date Expiration Date Visits Re quested Visits Authorized [id number] Closed 08/12/2014 02/08/2015 3 3 Encounter Details Date Type Department Care Team (Late st Contact Info) Description 09/09/2014 3:00 PM CDT Office Visit [facility] Medical [facility] - Rheumatology [address] [place] [address] Isidro Heredia MD [address] [place] [id number] Rheumatoid arthritis(714.0) (HCC) (Primary Dx); Chronic pain syndrome; Lumbar [...] Sign Reading Time Taken Comments Blood Pressure 123/88 09/09/2014 4:56 PM CDT Pulse 84 09/09/2014 4:56 PM CDT Temperature - - Respiratory Rate - - Oxygen Saturation - - Inhaled Oxygen Concentration - - Weight 114.8 kg (253 lb) 09/09/2014 4:56 PM CDT Height - - Body Mass Index 36.3 08/12/2014 10:45 AM CDT documented in this encounter Progress Notes * Isidro Heredia MD - 09/09/2014 5:11 PM CDT SUBJECTIVE: Chalino Deng is a 53 y.o. male who returns to the office today for follow up for his chronic pain. Chief Complaint: Chief Complaint Patient presents with ??? Rheumatoid Arthritis On mtx actemra pred 10 mg bid for ra and neurontin percocet and skelaxin for chronic pain Arthritis-yes Fatigue-yes Stiffness-yes Headaches/Migraines-occ Irritable Bowel Syndrome-no Sleeping Impairment/Difficulty-yes Stress-Yes Pain Level - 5/10 Hands knees right shoulder He Is having lumbar radiculopathy again completed 5 epid nerve injections in nov Past Medical History Diagnosis Date ??? RA (rheumatoid arthritis) Past Surgical History Procedure Laterality Date ??? Tonsillectomy at 9 years old History Smoking status ??? Never Smoker Smokeless tobacco ??? Never Used History Alcohol Use No History Drug Use Not on file Patient Active Problem List Diagnosis ??? Rheumatoid Arthritis ??? GERD (Gastroesophageal Reflux Disease) ??? Osteopenia ??? ANEMIA ??? Subacromial bursitis ??? Chronic pain syndrome ??? Pain medication agreement signed ??? Other and unspecified hyperlipidemia ??? Lumbar radiculopathy Review of Systems: General: No fever, chills, [...] tearing, sneezing, cough, eye irritation Systems reviewed OBJECTIVE: General Appearance Physical Exam: BP 123/88 mmHg Pulse 84 Wt 114.76 kg (253 lb) Head: perrla, eyes clear, vision and hearing intact, no oral ulcers, tongue normal, throat clear Neck:supple, no bruits, adenopathy Chest: clear, no rales, rhonchi or wheezes. Heart nsr. No S3,S4, or murmurs Abdomen:soft, no masses or tenderness, no organomegaly Genitalia, Groin, Buttocks: Back: no abnormal curvature, tenderness, or muscle spasm Extremities: No edema, cyanosis, or rash. RUE: 13/TJ, 0/SJ, 0/muscle tenderness or weakness LUE: 13/TJ, 0/SJ, 0/muscle tenderness or weakness RLE: 1/TJ, 1/SJ, 0/muscle tenderness or weaknessknees LLE: 1/TJ, 1/SJ, 0/muscle tenderness or weakness ASSESSMENT: He has been able to function fairly well with his narcotic analgesics. There are no signs of drug intolerance, over sedation or abuse. Outpatient Prescriptions Marked as Taking for the 09/09/14 encounter (Office Visit) with Isidro Heredia MD Medication Sig Dispense Refill ??? oxyCODONE-acetaminophen (PERCOCET) [...] 3 times daily. 270 Tab 3 ??? predniSONE (DELTASONE) 10 MG tablet TAKE 1 TABLET BY MOUTH 2 TIMES A DAY 180 Tab 3 ??? fish oil/omega-3 fatty acids (FISH OIL) 1000 MG capsule Take 1,000 mg by mouth 2 times daily. ??? Multiple Vitamin (MULTI-VITAMIN PO) Take by mouth once daily. ??? Idyxgeqymch-Qjgqfppjw-Vsh C-Mn (GLUCOSAMINE CHONDR 1500 COMPLX PO) Take by mouth once daily. ??? ZYRTEC 10 MG TABS Take 10 mg by mouth once daily. Seasonal (nov. Encounter Diagnoses Name Primary? Rheumatoid arthritis Yes ??? Chronic pain syndrome ??? Lumbar radiculopathy poorly Controlled ra Chronic pain and radiculopathy same meds May need to see dr phillips soon PLAN: Plan Discussed addiction issues. Orders Placed This Encounter ??? oxyCODONE-acetaminophen (PERCOCET) 5-325 MG tablet Sig: Take 1 Tab by mouth every 6 hours as needed for Pain. Dispense: 120 Tab Refill: 0 Return for office visit in 2 weeks. documented in this encounter Plan of Treatment Upcoming Encounters Date Type Department Care Team (Late st Contact Info) Description 06/03/2024 1:00 PM TYPING OFFICE WORKER Appointment [facility] - Rheumatology [address] [place] [phone] 06/03/2024 2:00 PM TYPING OFFICE WORKER Office Visit [facility] Medical [facility] - Rheumatology [address] [place] [address] [phone] Gloria Smith MD [address] [place] [phone] documented as of this encounter Visit Diagnoses Diagnosis Rheumatoid arthritis(714.0) ([facility])- Primary Rheumatoid arthritis Chronic pain syndrome Lumbar radiculopathy Thoracic or lumbosacral neuritis or radiculitis, unspecified documented in this encounter Care Teams Personal Financial Counselor Relationship Specialty Start Date End Date Tomas Hyman MD [address] [facility] [address] [place] [address] PCP - General Family Medicine 12/31/13 05/09/18 Isidro Heredia MD Rheumatology 02/09/11 documented as of this encounter
--- OUTSIDE RECORDS SUMMARY | 2024-05-03 04:12 | XMS_ITS | Encounter Summary ---
Author Organization [facility] Address [address] [facility] [place] [address] Care Team Providers Care Continuity Writer Name Role Phone Isidro Heredia MD Unavailable [phone] Tomas Hyman MD Primary Care Provider [phone] Reason for Visit * Treatment (Routine) - Closed Specialty Diagnoses / Procedures Referred By Lawrence shah Referred To Contact Infusion Therapy Nurse Diagnoses Rheumatoid arthritis(714.0) ([facility]) Procedures RI INJECTION TOCILIZUMAB 1 MG Isidro Heredia MD [address] [place] [address] [phone] Referral ID Status Reason Start Date Expiration Date Visits Re quested Visits Authorized [id number] Closed 09/29/2014 04/29/2015 1 6 Encounter Details Date Type Department Care Team (Late st Contact Info) Description 12/03/2014 1:21 PM CDT - 12/03/2014 11:59 PM CDT Hospital Encounter [facility] Medical [facility] - Rheumatology [address] [place] [address] Isidro Heredia MD [address] [place] [place] [address] Discharge Disposition: Home or Self [...] Time Taken Comments Blood Pressure 122/72 12/03/2014 1:42 PM CDT Pulse 72 12/03/2014 1:42 PM CDT Temperature 36.6 ??C (97.9 ??F) 12/03/2014 1:42 PM CD T Respiratory Rate 16 12/03/2014 1:42 PM CDT Oxygen Saturation - - Inhaled Oxygen Concentration - - Weight - - Height - - Body Mass Index - - documented in this encounter Discharge Instructions * Discharge Instructions* Carlos Foreman RN - 12/03/2014 2:03 PM CDT [place] Rheumatology Post Infusion instructions [...] through Sunday 9-5 call the office at [phone] After hours or on the weekend call the exchange at [phone] If you have had lab work done [...] chosen [facility] as your provider. Carlos Foreman RN documented in this encounter Medications at Time of Discharge Medication Sig Dispensed Refills Start Date End Date Orrksafsvtx-Qhjbucghe-R it C-Mn (GLUCOSAMINE CHONDR 1500 COMPLX PO) [...] Progress Notes * Carlos Foreman RN - 12/03/2014 1:59 PM CDT JOSE Chalino Deng [id number] 12/03/2014 Diagnosis: Rheumatoid arthritis(714.0) [714.0]. Patient questionnaire results Health Assessment Questionnaire BP 122/72 mmHg Pulse 72 Temp(Src) 97.9 ??F Resp 16 @ MEDICATIONS FOR CURRENT [...] st Contact Info) Description 06/03/2024 1:00 PM FELLER BUNCHER OPERATOR Appointment [facility] - Rheumatology [address] [place] [address] [phone] 06/03/2024 2:00 PM FELLER BUNCHER OPERATOR Office Visit [facility] - Rheumatology [address] [place] [address] Gloria Smith MD [address] [place] [phone] documented as of this encounter Visit Diagnoses Diagnosis Rheumatoid arthritis(714.0) (HCC) Rheumatoid arthritis documented in this encounter Administered Medications Inactive Administered Medications - up to 3 most recent administrations Medication Order MAR Action Action Date Dose Rate Site Tocilizumab 800 mg in 0.9% NaCl IVPB 800 mg, at 140 mL/hr, Intravenous, ONCE, 1 dose, On Gabriela 12/03/14 at 1400, 2 vials used of Actemra 400MG with 0 WASTE. Stable 24hrs RT $ Given 12/03/2014 1:49 PM CDT 800 mg 140 mL/h r documented in this encounter Care Teams Continuity Writer Relationship Specialty Start Date End Date Tomas Hyman MD [address] [facility] [address] [place] [address] PCP - General Family Medicine 12/31/13 05/09/18 Isidro Heredia MD Rheumatology 02/09/11 documented as of this encounter
--- OUTSIDE RECORDS SUMMARY | 2024-05-03 04:12 | XMS_ITS | Encounter Summary ---
Author Organization [facility] Address [address] [place] [address] Care Team Providers Care Spindraw Operator Name Role Phone Isidro Heredia MD Unavailable [phone] Tomas Hyman MD Primary Care Provider [phone] Reason for Visit * Treatment (Routine) - Closed Specialty Diagnoses / Procedures Referred By Lawrence shah Referred To Contact Infusion Therapy Nurse Diagnoses Rheumatoid arthritis(714.0) ([facility]) Procedures [place] INJECTION TOCILIZUMAB 1 MG Isidro Heredia MD [address] [place] [address] [phone] Referral ID Status Reason Start Date Expiration Date Visits Re quested Visits Authorized [id number] Closed 09/29/2014 04/29/2015 1 6 Encounter Details Date Type Department Care Team (Late st Contact Info) Description 11/05/2014 2:34 PM CDT - 11/05/2014 11:59 PM CDT Hospital Encounter [facility] Medical [facility] - Rheumatology [address] [place] [address] Isidro Heredia MD [address] [facility] [place] [address] Discharge Disposition: Home or Self [...] Reading Time Taken Comments Blood Pressure 110/71 11/05/2014 4:29 PM CDT Pulse 80 11/05/2014 4:29 PM CDT Temperature 36.7 ??C (98 ??F) 11/05/2014 4:29 PM CDT Respiratory Rate 16 11/05/2014 4:29 PM CDT Oxygen Saturation - - Inhaled Oxygen Concentration - - Weight 114.3 kg (252 lb) 11/05/2014 3:17 PM CDT Height - - Body Mass Index 36.16 11/05/2014 3:03 PM CDT documented in this encounter Discharge Instructions * Discharge Instructions* Carlos Foreman RN - 11/05/2014 3:58 PM CDT [place] Rheumatology Post Infusion instructions You have received [...] Sunday through 01-02 call the office at [phone] After hours or on the weekend call the exchange at [phone] If you have had lab work done [...] chosen [facility] as your provider. Carlos Foreman RN documented in this encounter Medications at Time of Discharge Medication Sig Dispensed Refills Start Date End Date Ivqhhezdivn-Tmoesqnmx-C it C-Mn (GLUCOSAMINE CHONDR 1500 COMPLX PO) [...] mg by mouth 2 times daily. 01/07/2015 metaxalone (SKELAXIN) 800 MG tablet TAKE 1 [...] Pain Dx: 714.0 RA 120 Tab 0 11/05/2014 12/03/2014 pravastatin (PRAVACHOL) 20 MG tablet Take 20 mg by mouth once daily. 06/14/2015 predniSONE (DELTASONE) 10 MG tablet TAKE 1 TABLET BY MOUTH 2 TIMES A DAY 180 Tab 3 11/05/2014 09/24/2015 documented as of this encounter Progress Notes * Carlos Foreman RN - 11/05/2014 3:56 PM CDT JOSE Chalino Deng [id number] 11/05/2014 Diagnosis: Rheumatoid arthritis(714.0) [714.0]. Patient questionnaire results Health Assessment Questionnaire BP 122/80 mmHg Pulse 84 Temp(Src) 98.2 ??F Resp 16 Wt 114.306 kg (252 lb) @ MEDICATIONS FOR CURRENT ENCOUNTER: ?? [...] st Contact Info) Description 06/03/2024 1:00 PM HYDRAULIC RIVETER Appointment [facility] - Rheumatology [address] [place] [address] [phone] 06/03/2024 2:00 PM HYDRAULIC RIVETER Office Visit [facility] - Rheumatology [address] [place] [address] Gloria Smith MD [address] [place] [phone] documented as of this encounter Visit Diagnoses Diagnosis Rheumatoid arthritis(714.0) (HCC) Rheumatoid arthritis documented in this encounter Administered Medications Inactive Administered Medications - up to 3 most recent administrations Medication Order MAR Action Action Date Dose Rate Site Tocilizumab 800 mg in 0.9% NaCl IVPB 800 mg, at 140 mL/hr, Intravenous, ONCE, 1 dose, On Gabriela 11/05/14 at 1600, 2 vials used of Actemra 400MG with 0 WASTE. Stable 24hrs RT $ Given 11/05/2014 3:20 PM CDT 800 mg 140 mL/h r documented in this encounter Care Teams Spindraw Operator Relationship Specialty Start Date End Date Tomas Hyman MD [address] [place] [address] PCP - General Family Medicine 12/31/13 05/09/18 Isidro Heredia MD Rheumatology 02/09/11 documented as of this encounter
--- OUTSIDE RECORDS SUMMARY | 2024-05-03 04:12 | XMS_ITS | Encounter Summary ---
Author Organization [facility] Address [address] [place] [address] Care Team Providers Care Etched Circuit Processor Name Role Phone Isidro Heredia MD Unavailable Tomas Hyman MD Primary Care Provider [phone] Reason for Visit * Reason Comments Low Back Pain * Evaluate & Treat (Routine) - Closed Specialty Diagnoses / Procedures Referred By Contsarahi t Referred To Contact Neurological Surgery Diagnoses LBP (low back pain) Procedures IN OFFICE/OUTPT VISIT,JULITO LOPEZ II, Jason E, MD [address] [place] [address] Shade Yao MD [address] [place] [address] Referral ID Status Reason Start Date Expiration Date Visits Re quested Visits Authorized [id number] Closed 06/08/2014 06/08/2015 5 5 Encounter Details Date Type Department Care Team (Latest Contact Info) Description 07/13/2014 11:45 AM CDT Office Visit [facility] [address] [place] [address] [place] [address] Shade Yao MD [address] [place] [phone] Lumbago (Primary Dx); Degeneration of lumbar or lumbosacral intervertebral disc Social History Tobacco Use Types Packs/Day Years [...] - - Weight 111.6 kg (246 lb) 07/13/2014 11:53 AM CDT Height 177.8 cm (5' 10 ) 07/13/2014 11:53 AM CDT Body Mass Index 35.3 07/13/2014 11:53 AM CDT documented in this encounter Patient Instructions * Patient Instructions* Shade Yao MD - 07/14/2014 6:10 AM CDT Observe for now documented in this encounter Progress Notes * Pinky Aleman - 07/14/2014 8:21 AM CDT [phone] - [facility] doesn't accept consults * Shade Yao MD - 07/13/2014 12:03 PM CDT Chalino was seen in the office today. He presents with complaints of Lower back pain. He has no leg pain now, but had right leg pain to the whole foot. He tells me that he has Numbness in the outside ofthe right foot. Had pain management which helped leg pain. On a scale of ten now down to a four. Weakness+ in the right leg, started with back pain over a year ago. Bowel and bladder ok. Reviewed MRIimages. MRI:L4-5 and L5-S1 posterior annular bulges and spondylitic changes as described without overt stenosis. Exam: normal, mild range of motion pain, 5/5 I see No real surgical indications at this time, although I suspect early DDD. I've told him that it would help to loose some weight. May need future discogram. documented in this encounter Miscellaneous Notes * Addendum Note - Pinky Aleman - 07/14/2014 8:21 AM CDTAddended by: PINKY ALEMAN on: 07/14/2014 08:21 AM Modules accepted: Level of Service documented in this encounter Plan of Treatment Upcoming Encounters Date Type Department Care Team (Late st Contact Info) Description 06/03/2024 1:00 PM STERILE PROCESS COORDINATOR Appointment [facility] - Rheumatology [address] [place] [address] 06/03/2024 2:00 PM STERILE PROCESS COORDINATOR Office Visit [facility] - Rheumatology [address] [place] [address] Gloria Smith MD [address] [place] [phone] documented as of this encounter Visit Diagnoses Diagnosis Lumbago- Primary Degeneration of lumbar or lumbosacral intervertebral disc documented in this encounter Care Teams Etched Circuit Processor Relationship Specialty Start Date End Date Tomas Hyman MD [address] [place] [address] PCP - General Family Medicine 12/31/13 05/09/18 Isidro Heredia MD Rheumatology 02/09/11 documented as of this encounter
--- OUTSIDE RECORDS SUMMARY | 2024-05-03 04:12 | XMS_ITS | Encounter Summary ---
Author Organization [facility] Address [address] [facility] [place] [address] Care Team Providers Care Carbon Paper Machine Operator Name Role Phone Isidro Heredia MD Unavailable [phone] Tomas Hyman MD Primary Care Provider [phone] Encounter Details Date Type Department Care Team (Late st Contact Info) Description 11/05/2014 Orders Only [facility] Medical [facility] - Rheumatology [address] [place] [address] [phone] Isidro Heredia MD [address] [place] [address] Rheumatoid arthritis(714.0) ([facility]) Social History Tobacco Use Types Packs/Day Years Used Date Smoking Tobacco: Never Smokeless Tobacco: Never Alcohol Use Standard Drinks/Week Comments No 0 (1 standard drink = 0.6 oz pur e alcohol) Sex and Gender Information Value Date Recorded Sex Assigned at Not on file Gender Identity Not on file Sexual Orientation Not on file documented as of this encounter Progress Notes * Rebecca Lugo - 11/10/2014 4:46 PM CDTQuick Note: Sent lab results to pt's mychart. * Isidro Heredia MD - 11/09/2014 12:46 PM CDTQuick Note: bs 146 high mtx ok meron * Rebecca Lugo - 11/05/2014 4:18 PM CDT Pt here for infusion. Tests ordered: CBC,CMP,Sed Rate. documented in this encounter Plan of Treatment Upcoming Encounters Date Type Department Care Team (Late st Contact Info) Description 06/03/2024 1:00 PM SUPERVISOR POWDERED METAL Appointment [facility] - Rheumatology [address] [place] [address] 06/03/2024 2:00 PM SUPERVISOR POWDERED METAL Office Visit [facility] - Rheumatology [address] [place] [address] Gloria Smith MD [address] [place] [phone] documented as of this encounter Procedures Procedure Name Priority Date/Time Associated Diagnosis Comments ERYTHROCYTE SEDIMENTATION RATE Routine 11/05/2014 12:00 AM CDT Rheumatoid arthritis(714.0) ([facility]) CBC W AUTO DIFFERENTIAL Routine 11/05/2014 12:00 AM CDT Rheumatoid arthritis(714.0) ([facility]) COMPREHENSIVE METABOLIC PANEL Routine 11/05/2014 12:00 AM CDT Rheumatoid arthritis(714.0) ([facility]) documented in this encounter Results * SED RATE WESTERGREN (11/05/2014 12:00 AM CDT) Erythrocyte Sedimentation Rate Westergren 5 0 - 30 mm/hr [facility] INSURANCE BILL Blood specimen (specimen) BLOOD SPECIMEN / Unknown 11/05/2014 11/05/2014 10:20 PM CDT Narrative Resulting Agency Comment [facility] [address] ??[facility] [id number] Isidro Heredia MD LAB - HEMATOLOGY OR DERABLES [facility] INSURANCE BILL * (ABNORMAL) COMPREHENSIVE METABOLIC PANEL (11/05/2014 12:00 AM CDT) Glucose 146(H) 65 - 99 mg/dL [facility] INSURANCE BILL BUN 16 6 - 24 mg/dL [facility] INSURANCE BILL Creatinine 0.88 0.76 - 1.27 mg/dL [facility] INSURANCE BILL eGFR by MDRD 99 >59 mL/min/1.7 3 [facility] INSURANCE BILL eGFR by MDRD 114 >59 mL/min/1.7 3 [facility] INSURANCE BILL BUN/Creatinine Ratio 18 9 - 20 [facility] INSURANCE BILL Sodium 139 134 - 144 mmol/L [facility] INSURANCE BILL Potassium 4.3 3.5 - 5.2 mmol/L [facility] INSURANCE BILL Chloride 102 97 - 108 mmol/L [facility] INSURANCE BILL CO2 21 18 - 29 mmol/L [facility] INSURANCE BILL Calcium 9.4 8.7 - 10.2 mg/dL [facility] INSURANCE BILL Protein Total 6.4 6.0 - 8.5 g/dL [facility] INSURANCE BILL Albumin 4.4 3.5 - 5.5 g/dL [facility] INSURANCE BILL Globulin Total 2.0 1.5 - 4.5 g/dL [facility] INSURANCE BILL Albumin/Globulin Ratio 2.2 1.1 - 2.5 [facility] INSURANCE BILL Bilirubin Total 0.5 0.0 - 1.2 mg/dL [facility] INSURANCE BILL Alkaline Phosphatase 45 39 - 117 IU/L [facility] INSURANCE BILL AST 25 0 - 40 IU/L [facility] INSURANCE BILL ALT 25 0 - 44 IU/L [facility] INSURANCE BILL Blood specimen (specimen) BLOOD SPECIMEN / Unknown 11/05/2014 11/05/2014 10:20 PM CDT Narrative Resulting Agency Comment [facility] [address] ??[facility] [id number] Isidro Heredia MD LAB - CHEMISTRY ORD ERABLES [facility] INSURANCE BILL * (ABNORMAL) CBC W AUTO DIFFERENTIAL (11/05/2014 12:00 AM CDT) WBC 8.1 3.4 - 10.8 x10E3/uL [facility] INSURANCE BILL RBC 4.11(L) 4.14 - 5.80 x10E6/uL [facility] INSURANCE BILL Hemoglobin 12.8 12.6 - 17.7 g/dL [facility] INSURANCE BILL Hematocrit 37.8 37.5 - 51.0 % [facility] INSURANCE BILL MCV 92 79 - 97 fL [facility] INSURANCE BILL MCH 31.1 26.6 - 33.0 pg [facility] INSURANCE BILL MCHC 33.9 31.5 - 35.7 g/dL [facility] INSURANCE BILL RDW 14.0 12.3 - 15.4 % [facility] INSURANCE BILL Platelet Count 191 150 - 379 x10E3/uL [facility] INSURANCE BILL Granulocytes % 65 % [facility] INSURANCE BILL Lymphocytes % 27 % [facility] INSURANCE BILL Monocytes % 6 % [facility] INSURANCE BILL Eosinophils % 2 % [facility] INSURANCE BILL Basophils % 0 % [facility] INSURANCE BILL Immature Cells NOT NEEDED [facility] INSURANCE BILL Comment:Ancillary determined the test is not needed Granulocytes Absolute 5.2 1.4 - 7.0 x10E3/uL [facility] INSURANCE BILL Lymphocytes Absolute 2.2 0.7 - 3.1 x10E3/uL [facility] INSURANCE BILL [...] Blood specimen (specimen) BLOOD SPECIMEN / Unknown 11/05/2014 11/05/2014 10:20 PM CDT Narrative Resulting Agency Comment [facility] [address] ??[facility] [id number] Isidro Heredia MD LAB - HEMATOLOGY OR DERABLES [facility] INSURANCE BILL documented in this encounter Visit Diagnoses Diagnosis Rheumatoid arthritis(714.0) ([facility])- Primary Rheumatoid arthritis documented in this encounter Care Teams Carbon Paper Machine Operator Relationship Specialty Start Date End Date Tomas Hyman MD [address] [facility] [address] [place] [address] PCP - General Family Medicine 12/31/13 05/09/18 Isidro Heredia MD Rheumatology 02/09/11 documented as of this encounter
--- OUTSIDE RECORDS SUMMARY | 2024-05-03 04:12 | XMS_ITS | Encounter Summary ---
Author Organization [facility] Address [address] [place] [address] Care Team Providers Care Metal Expediter Name Role Phone Isidro Heredia MD Unavailable [phone] Tomas Hyman MD Primary Care Provider [phone] Encounter Details Date Type Department Care Team (Late st Contact Info) Description 06/08/2014 Orders Only [facility] - Family Medicine [address] [place] [address] Isidro Heredia MD [address] [place] [address] Rheumatoid arthritis (HCC) Social History Tobacco Use Types Packs/Day [...] Progress Notes * Isidro Heredia MD - 06/13/2014 3:18 PM CSTQuick Note: mtx ok meron ING HELPER * Rea Hagan MA - 06/08/2014 4:31 PM CST Pt here for infusion, Test ordered: cbc, cmp, sed rate ING HELPER documented in this encounter Plan of Treatment Upcoming Encounters Date Type Department Care Team (Late st Contact Info) Description 06/03/2024 1:00 PM RIGGING HELPER Appointment [facility] - Rheumatology [address] [place] [address] [phone] 06/03/2024 2:00 PM RIGGING HELPER Office Visit [facility] - Rheumatology [address] [place] [address] Gloria Smith MD [address] [place] [phone] documented as of this encounter Procedures Procedure Name Priority Date/Time Associated Diagnosis Comments ERYTHROCYTE SEDIMENTATION RATE Routine 06/08/2014 4:55 PM RIGGING HELPER Rheumatoid Arthritis (Hcc) CBC W AUTO DIFFERENTIAL Routine 06/08/2014 4:55 PM RIGGING HELPER Rheumatoid Arthritis (Hcc) COMPREHENSIVE METABOLIC PANEL Routine 06/08/2014 4:55 PM RIGGING HELPER Rheumatoid Arthritis (Hcc) documented in this encounter Results * SED RATE WESTERGREN (06/08/2014 4:55 PM RIGGING HELPER) Erythrocyte Sedimentation Rate Westergren 10 0 - 30 mm/hr [facility] INSURANCE BILL Blood specimen (specimen) BLOOD SPECIMEN / Unknown 06/08/2014 4:55 PM RIGGING HELPER 06/08/2014 7:25 PM RIGGING HELPER Narrative Resulting Agency Comment [facility] [place] [address] [facility] ??[facility] [phone] Isidro Heredia MD LAB - HEMATOLOGY OR DERABLES [facility] INSURANCE BILL * (ABNORMAL) COMPREHENSIVE METABOLIC PANEL (06/08/2014 4:55 PM RIGGING HELPER) Glucose 111(H) 65 - 99 mg/dL [facility] INSURANCE BILL BUN 20 6 - 24 mg/dL [facility] INSURANCE BILL Creatinine 0.86 0.76 - 1.27 mg/dL [facility] INSURANCE BILL eGFR by MDRD 100 >59 mL/min/1.7 3 [facility] INSURANCE BILL eGFR by MDRD 116 >59 mL/min/1.7 3 [facility] INSURANCE BILL BUN/Creatinine Ratio 23(H) 9 - 20 [facility] INSURANCE BILL Sodium 138 134 - 144 mmol/L [facility] INSURANCE BILL Potassium 4.6 3.5 - 5.2 mmol/L [facility] INSURANCE BILL Chloride 102 97 - 108 mmol/L [facility] INSURANCE BILL CO2 20 18 - 29 mmol/L [facility] INSURANCE BILL Calcium 9.2 8.7 - 10.2 mg/dL [facility] INSURANCE BILL Protein Total 6.4 6.0 - 8.5 g/dL [facility] INSURANCE BILL Albumin 4.1 3.5 - 5.5 g/dL [facility] INSURANCE BILL Globulin Total 2.3 1.5 - 4.5 g/dL [facility] INSURANCE BILL Albumin/Globulin Ratio 1.8 1.1 - 2.5 [facility] INSURANCE BILL Bilirubin Total 0.3 0.0 - 1.2 mg/dL [facility] INSURANCE BILL Alkaline Phosphatase 51 39 - 117 IU/L [facility] INSURANCE BILL AST 20 0 - 40 IU/L [facility] INSURANCE BILL ALT 38 0 - 44 IU/L [facility] INSURANCE BILL Blood specimen (specimen) BLOOD SPECIMEN / Unknown 06/08/2014 4:55 PM RIGGING HELPER 06/08/2014 7:25 PM RIGGING HELPER Narrative Resulting Agency Comment [facility] [address] ??[facility] [phone] Isidro Heredia MD LAB - CHEMISTRY ORD ERABLES [facility] INSURANCE BILL * (ABNORMAL) CBC W AUTO DIFFERENTIAL (06/08/2014 4:55 PM RIGGING HELPER) WBC 9.3 3.4 - 10.8 x10E3/uL [facility] INSURANCE BILL RBC 4.24 4.14 - 5.80 x10E6/uL [facility] INSURANCE BILL Hemoglobin 13.2 12.6 - 17.7 g/dL [facility] INSURANCE BILL Hematocrit 39.1 37.5 - 51.0 % [facility] INSURANCE BILL MCV 92 79 - 97 fL [facility] INSURANCE BILL MCH 31.1 26.6 - 33.0 pg [facility] INSURANCE BILL MCHC 33.8 31.5 - 35.7 g/dL [facility] INSURANCE BILL RDW 14.9 12.3 - 15.4 % [facility] INSURANCE BILL Platelet Count 188 150 - 379 x10E3/uL [facility] INSURANCE BILL Granulocytes % 78 % [facility] INSURANCE BILL Lymphocytes % 15 % [facility]URANCE B[facility] Monocytes % 6 % [facility] INSURANCE BILL Eosinophils % 1 % [facility] INSURANCE BILL Basophils % 0 % [facility] INSURANCE BILL Immature Cells NOT NEEDED [facility] INSURANCE BILL Comment:Ancillary determined the test is not needed Granulocytes Absolute 7.2(H) 1.4 - 7.0 x10E3/uL [facility] INSURANCE BILL [...] Blood specimen (specimen) BLOOD SPECIMEN / Unknown 06/08/2014 4:55 PM RIGGING HELPER 06/08/2014 7:25 PM RIGGING HELPER Narrative Resulting Agency Comment [facility] [address] ??[facility] [phone] Isidro Heredia MD LAB - HEMATOLOGY OR DERABLES [facility] INSURANCE BILL documented in this encounter Visit Diagnoses Diagnosis Rheumatoid arthritis(714.0) (HCC)- Primary Rheumatoid arthritis documented in this encounter Care Teams Metal Expediter Relationship Specialty Start Date End Date Tomas Hyman MD [address] [facility] [address] [place] [address] PCP - General Family Medicine 12/31/13 05/09/18 Isidro Heredia MD Rheumatology 02/09/11 documented as of this encounter
--- OUTSIDE RECORDS SUMMARY | 2024-05-03 04:12 | XMS_ITS | Encounter Summary ---
Author Organization [facility] Address [address] [facility] [place] [address] Care Team Providers Care Water Main Pipe Layer Name Role Phone Isidro Heredia MD Unavailable [phone] Tomas Hyman MD Primary Care Provider [phone] Reason for Visit * Treatment (Routine) - Closed Specialty Diagnoses / Procedures Referred By Lawrence shah Referred To Contact Infusion Therapy Nurse Diagnoses Rheumatoid arthritis(714.0) ([facility]) Procedures HI INJECTION TOCILIZUMAB 1 MG Isidro Heredia MD [address] [place] [address] [phone] Referral ID Status Reason Start Date Expiration Date Visits Re quested Visits Authorized [id number] Closed 05/08/2014 10/05/2014 1 6 Encounter Details Date Type Department Care Team (Late st Contact Info) Description 09/09/2014 2:30 PM CDT - 09/09/2014 11:59 PM CDT Hospital Encounter [facility] Medical [facility] - Rheumatology [address] [place] [address] Isidro Heredia MD [address] [place] [address] Discharge Disposition: Home or Self [...] Time Taken Comments Blood Pressure 123/88 09/09/2014 2:47 PM CDT Pulse 84 09/09/2014 2:47 PM CDT Temperature 36.4 ??C (97.6 ??F) 09/09/2014 2:47 PM CD T Respiratory Rate 16 09/09/2014 2:47 PM CDT Oxygen Saturation - - Inhaled Oxygen Concentration - - Weight - - Height - - Body Mass Index - - documented in this encounter Discharge Instructions * Discharge Instructions* Carlos Foreman, RN - 09/09/2014 3:07 PM CDT [place] Rheumatology Post Infusion instructions You have received [...] through Sunday 9-5 call the office at [phone] After hours or on the weekend call the exchange at [phone] If you have had lab work done [...] Sig Dispensed Refills Start Date End Date Ffllanoccru-Dbmtrekjz-Dc t C-Mn (GLUCOSAMINE CHONDR 1500 COMPLX PO) [...] Progress Notes * Carlos Foreman RN - 09/09/2014 2:51 PM CDT JOSE Deng [id number] 09/09/2014 Diagnosis: Rheumatoid arthritis [714.0]. Patient questionnaire results Health Assessment Questionnaire MHAQ: Pain: Global: Rapid 3: Sleep: GI: Fatigue: BP 123/88 mmHg Pulse 84 Temp(Src) 97.6 ??F Resp 16 @ MEDICATIONS FOR CURRENT [...] st Contact Info) Description 06/03/2024 1:00 PM DISPLAY CARD WRITER Appointment [facility] - Rheumatology [address] [place] [address] [phone] 06/03/2024 2:00 PM DISPLAY CARD WRITER Office Visit [facility] - Rheumatology [address] [place] [address] Gloria Smith MD [address] [place] [phone] documented as of this encounter Visit Diagnoses Diagnosis Rheumatoid arthritis(714.0) (HCC) Rheumatoid arthritis documented in this encounter Administered Medications Inactive Administered Medications - up to 3 most recent administrations Medication Order MAR Action Action Date Dose Rate Site Tocilizumab 800 mg in 0.9% NaCl IVPB 800 mg, at 140 mL/hr, Intravenous, ONCE, 1 dose, On Sun09/09/14 at 1500, 2 vials used of Actemra 400MG with 0 WASTE. Use with in-line filter. Stable 24hrs RT $ Given 09/09/2014 2:57 PM CDT 800 mg 140 mL/hr Right Hand documented in this encounter Care Teams Water Main Pipe Layer Relationship Specialty Start Date End Date Tomas Hyman MD [address] [facility] [address] [place] [address] PCP - General Family Medicine 12/31/13 05/09/18 Isidro Heredia MD Rheumatology 02/09/11 documented as of this encounter
--- OUTSIDE RECORDS SUMMARY | 2024-05-03 04:12 | XMS_ITS | Encounter Summary ---
Author Organization [facility] Address [address] [facility] [place] [address] Care Team Providers Care Meat Seafood Associate Name Role Phone Isidro Heredia MD Unavailable [phone] Tomas Hyman MD Primary Care Provider [phone] Reason for Visit * Reason Onset Date Comments Forms 07/27/2014 Encounter Details Date Type Department Care Team (Late st Contact Info) Description 07/27/2014 Telephone [facility] Medical [facility] - Family Medicine [address] [place] [address] [phone] Isidro Heredia MD [address] [place] [address] Forms Social History Tobacco Use Types [...] Telephone Encounter - Rea Hagan MA - 07/28/2014 10:32 AM CDT Spoke to patient on 07/27/[address] Valiente apologies on the delay. He had not forgotten him and hadbeen catching up with work flow since back from out of town. We will have letter done shortly. We will call him once the letter is completed. * Telephone Encounter - Graf Erika - 07/27/2014 3:57 PM CDT Informed pt of message * Telephone Encounter - Rea Hagan MA - 07/27/2014 3:40 PM CDT I sent a message through my- chart to pt this am informing him that I will discuss with Dr Valiente the status of his form. I also stated that the office will give him a call today. Please let him know again for me Thanks! * Telephone Encounter - Anaya Erika - 07/27/2014 2:00 PM CDT Pt is wanting to know about the forms for his half-way he turned in 7 weeks ago and his work is asking him about it documented in this encounter Plan of Treatment Upcoming Encounters Date Type Department Care Team (Late st Contact Info) Description 06/03/2024 1:00 PM BEDSPREAD FOLDER Appointment [facility] - Rheumatology [address] [place] [address] 06/03/2024 2:00 PM BEDSPREAD FOLDER Office Visit [facility] - Rheumatology [address] [place] [address] Gloria Smith MD [address] [place] [phone] documented as of this encounter Visit Diagnoses Not on filedocumented in this encounter Care Teams Meat Seafood Associate Relationship Specialty Start Date End Date Tomas Hyman MD [address] [facility] [address] [place] [address] PCP - General Family Medicine 12/31/13 05/09/18 Isidro Heredia MD Rheumatology 02/09/11 documented as of this encounter
--- OUTSIDE RECORDS SUMMARY | 2024-05-03 04:12 | XMS_ITS | Encounter Summary ---
Author Organization [facility] Address [address] [facility] [place] [address] Care Team Providers Care Lead Oxide Mill Tender Name Role Phone Isidro Heredia MD Unavailable [phone] Tomas Hyman MD Primary Care Provider [phone] Encounter Details Date Type Department Care Team (Latest Contact Info) Description 04/14/2014 9:49 AM COMMERCIAL LINES MANAGER - 04/14/2014 11:59 PM COMMERCIAL LINES MANAGER Hospital Encounter [facility] [address] [place] [address] [place] [address] [place] [phone] Discharge Disposition: Home or Self Care Social [...] Sign Reading Time Taken Comments Blood Pressure 146/96 04/14/2014 10:33 AM COMMERCIAL LINES MANAGER Pulse 93 04/14/2014 10:33 AM COMMERCIAL LINES MANAGER Temperature - - Respiratory Rate 16 04/14/2014 10:33 AM COMMERCIAL LINES MANAGER Oxygen Saturation 98% 04/14/2014 10:33 AM COMMERCIAL LINES MANAGER Inhaled Oxygen Concentration - - Weight - - Height - - Body Mass Index - - documented in this encounter Discharge Instructions * Patient Instructions* Ashlie Henao RN - 04/14/2014 10:06 AM COMMERCIAL LINES MANAGER [facility] Procedure Center Pain Discharge [...] headache, or any other problems, please call [phone] or after hours callDr. Mirza at [phone] and tell them your physician's name. The exchange will alert the physician ammonia operator. If sedation is given: No sedation given. For Your Next Visit: No additional instructions. Other Instructions: May remove band-aid in 12 Hours. Return KIMBERLEY 2 in 1 week. Patient Signature: Date: RN Signature: Date: ERCIAL LINES MANAGER documented in this encounter Medications at Time of Discharge Medication Sig Dispensed Refills Start Date End Date Pepqsmoyqbl-Ceblcqxrv-Wz t C-Mn (GLUCOSAMINE CHONDR 1500 COMPLX PO) [...] (PERCOCET) 5-325 MG tabletIndications:Rheuma toid arthritis(714.0) ([facility]) Take 1 Tab by mouth every 6 [...] Procedure Notes * Alejandro Mirza MD - 04/14/2014 10:31 AM CSTAssociated Order(s): PAIN MANAGEMENT PROCEDURE TIME Lumbar KIMBERLEY L5-S1 Chalino Deng Provider: Alejandro Mirza MD 1960 Date: 04/14/2014 Tomas Hyman Pt. presents today for a injection. Allergies: Allergies as of 04/14/2014 - reviewed 04/14/2014 Allergen Reaction Noted ??? Plaquenil [hydroxychloroquine sulfate] [...] Coumidin, Plavix or other blood thinners. Responsible coach tour driver is not needed due to the [...] Follow Up: 1 week Alejandro Mirza MD ERCIAL LINES MANAGER documented in this encounter Plan of Treatment Upcoming Encounters Date Type Department Care Team (Late st Contact Info) Description 06/03/2024 1:00 PM COMMERCIAL LINES MANAGER Appointment [facility] - Rheumatology [address] [place] [address] 06/03/2024 2:00 PM COMMERCIAL LINES MANAGER Office Visit [facility] - Rheumatology [address] [place] [address] Gloria Smith MD [address] [place] [phone] documented as of this encounter Procedures Procedure Name Priority Date/Time Associated Diagnosis Comments PAIN MANAGEMENT PROCEDURE TIME Routine 04/14/2014 10:24 AM COMMERCIAL LINES MANAGER Displacement Of Lumbar Intervertebral Disc Without Myelopathy Thoracic or lumbosacral neuritis or radiculitis, unspecified documented in this encounter Results * PAIN MANAGEMENT PROCEDURE TIME (04/14/2014 10:24 AM COMMERCIAL LINES MANAGER) Anatomical Region Laterality Modality X-Ray Angiograph y Narrative 04/14/2014 10:32 AM COMMERCIAL LINES MANAGER Alejandro Mirza MD ? 04/14/2014 10:32 AM Lumbar KIMBERLEY L5-S1 Chalino Deng ?Provider: Alejandro Mirza MD 1960 ? Date: ?04/14/2014 Tomas Hyman Pt. presents today for a injection. ? Allergies: Allergies as of 04/14/2014 - reviewed 04/14/2014 Allergen Reaction Noted ? ? Plaquenil [hydroxychloroquine [...] Coumidin, Plavix or other blood thinners. ??Responsible coach tour driver is not needed due to the [...] Follow Up: ??1 week Alejandro Mirza MD Procedure Note Alejandro Mirza MD - 04/14/2014 10:31 AM CST Lumbar KIMBERLEY L5-S1 Chalino DengProvider: Alejandro Mirza MD 1960Date: 04/14/2014 Tomas Hyman Pt. presents today for a injection. Allergies: Allergies as of 04/14/2014 - reviewed 04/14/2014 Allergen Reaction Noted ? ? Plaquenil [hydroxychloroquine sulfate] 05/15/2011 ? ? Tuberculin ppd 07/27/2008 Procedures: Epidural L5-S1 Diagnosis/Indication:Low back pain and/or leg pain 722.10 Other conservative therapies and/or treatments provided inadequate painrelief. Informed Consent: After the patient was informed of the risks andbenefits of the procedure and all questions were answered, consent wassigned.Risks benefits, and alternative were discussed including risk ofinfection, bleeding , nerve damage, worsening pain, no pain reliefwhatsoever, transient increase in blood pressure, blood sugar, fluidretention,possibility of headache, possibility of shingles, or any otherviral outbreak secondary to immunosuppressant effects of steroid use Prep: Pt identified, proper procedure identified, site identified, andmarked by Dr. Mirza. Pt is not on Coumidin, Plavix or other bloodthinners. Responsible coach tour driver is not needed due to the patient not havingsedation. The patient was placed in a prone position and was prepped withChloraprep. Procedure: Lidocaine 1% was injected with a 25 gauge needle at F3tvzoybcva placement with the guided fluoroscopy. An 18 gauge Touhy needlewas placed into the epidural space using loss or resistance technique withpreservative free (PF) normal saline. No cerebral spinal fluid or bloodwas aspirated prior to the injection. 80 milligrams of Depo medrol andsaline were injected into the epidural space. Complications: None The patient tolerated the procedure well and there were no complications.The patient was taken to the recovery area. The patient remained instable condition with no apparent complications. Vital signs stable.Injection site clean, dry, and intact. Post procedure instructions weregiven to the patient and a follow up appointment was confirmed. Thepatient was discharged with information on how to reach the clinic atanytime for questions or concerns. Pt ambulatory, denies complaints, DCto home. Pt survey given. Procedure code: Epi Lum/cad, Flouro Follow Up: 1 week Alejandro Mirza MD Alejandro Mirza MD [...] mg, Epidural, INTRA-PROCEDURE ONCE, 1 dose, On 04/14/14 at 1001, Administer per physician direction. May be administered as 80 mg unilaterally once, or 40 mg bilaterally once (2 separate doses). $ Admin. by Other Provider 04/14/2014 10:16 AM COMMERCIAL LINES MANAGER 80 mg documented in this encounter Care Teams Lead Oxide Mill Tender Relationship Specialty Start Date End Date Tomas Hyman MD [address] [place] [address] PCP - General Family Medicine 12/31/13 05/09/18 Isidro Heredia MD Rheumatology 02/09/11 documented as of this encounter
--- OUTSIDE RECORDS SUMMARY | 2024-05-03 04:12 | XMS_ITS | Encounter Summary ---
Author Organization [facility] Address [address] [facility] [place] [address] Care Team Providers Care Saw Feeder Name Role Phone Isirdo Heredia MD Unavailable [phone] Tomas Hyman MD Primary Care Provider [phone] Reason for Visit * Treatment (Routine) - Closed Specialty Diagnoses / Procedures Referred By Contsarahi t Referred To Contact Pain Management Diagnoses Displacement of lumbar intervertebral disc without myelopathy Thoracic or lumbosacral neuritis or radiculitis, unspecified Procedures [place] INJ,FORAMEN,L/S,1 LEVEL [place] INJ,FORAMEN,L/S,[place] [id number] [address] [facility] [address] [place] [address] Referral ID Status Reason Start Date Expiration Date Visits Re quested Visits Authorized [id number] Closed 03/10/2014 09/06/2014 6 6 Encounter Details Date Type Department Care Team (Latest Contact Info) Description 04/14/2014 9:45 AM COOK SAUCE - 04/14/2014 9:48 AM COOK SAUCE Hospital Encounter [facility] Pain Care [address] [place] [address] [place] [address] [place] [phone] Discharge Disposition: Home or Self Care Social [...] Sig Dispensed Refills Start Date End Date Sljgnwnurrj-Ikmxugico-Xw t C-Mn (GLUCOSAMINE CHONDR 1500 COMPLX PO) [...] (PERCOCET) 5-325 MG tabletIndications:Rheuma toid arthritis(714.0) ([facility]) Take 1 Tab by [...] Contact Info) Description 06/03/2024 1:00 PM COOK SAUCE Appointment [facility] - Rheumatology [address] [place] [address] [phone] 06/03/2024 2:00 PM COOK SAUCE Office Visit [facility] - Rheumatology [address] [place] [address] [phone] Gloria Smith MD [address] [place] [phone] documented as of this encounter Visit Diagnoses Not on filedocumented in this encounter Care Teams Saw Feeder Relationship Specialty Start Date End Date Tomas Hyman MD [address] [facility] [address] [place] [address] PCP - General Family Medicine 12/31/13 05/09/18 Isidro Heredia MD Rheumatology 02/09/11 documented as of this encounter
--- OUTSIDE RECORDS SUMMARY | 2024-05-03 04:12 | XMS_ITS | Encounter Summary ---
Author Organization [facility] Health Address [address] [place] [address] Care Team Providers Care Child And Youth Program Assistant Name Role Phone Isidro Heredia MD Unavailable [phone] Tmoas Hyman MD Primary Care Provider [phone] Reason for Visit * Reason Comments Lower Extremity Problem right * Evaluate & Treat (Routine) - Closed Specialty Diagnoses / Procedures Referred By Lawrence shah Referred To Contact Diagnoses Lumbago Rheumatoid arthritis(714.0) ([facility]) Procedures AMB CONSULT TO ORTHOPEDIC SURGERY CT OFFICE/OUTPT VISIT,EST,Tomas Murguia MD [address] [place] [address] [place] [id number] [address] Referral ID Status Reason Start Date Expiration Date Visits Re quested Visits Authorized [id number] Closed 03/11/2014 03/11/2015 6 6 Encounter Details Date Type Department Care Team (Late st Contact Info) Description 03/23/2014 9:00 AM LITIGATOR Office Visit [facility] [id number] [place] [address]. [place] [address] [place] [id number] [facility] [address] [place] [address] Thoracic or lumbosacral neuritis or radiculitis, unspecified (Primary Dx) Social History Tobacco Use Types [...] - - Weight 117.9 kg (260 lb) 03/23/2014 9:18 AM LITIGATOR Height 177.8 cm (5' 10 ) 03/23/2014 9:18 AM LITIGATOR Body Mass Index 37.31 03/23/2014 9:18 AM LITIGATOR documented in this encounter Patient Instructions * Patient Instructions* Selvin Stern MD - 03/23/2014 10:12 AM LITIGATOR F/U with . GATOR documented in this encounter Progress Notes * Selvin Stern MD - 03/23/2014 10:12 AM CST Please see dictated clinic note. GATOR * Hali Figueroa - 03/23/2014 9:18 AM CST EMG RLE Pain scale 7/10 GATOR documented in this encounter H&P Notes * Selvin Stern MD - 03/25/2014 12:11 AM CST DATE OF SERVICE: 03/23/2014 LOCATION: [facility] [address] HISTORY: Mr. Deng is seen for complaints of low back pain, right lower extremity pain. He states the symptoms started in October of 2013. He initially had significant pain but however has residual numbness in the right foot, especially in the fifth toe. He denies any fever, chills, or recent weight loss. He denies any onset of bowel or bladder dysfunction. Symptoms are worse with prolonged sitting and with walking. He has some relief at rest and lying in the left lateral position. He denies any fever, chills, or recent weight loss. He denies any onset of bowel or bladder dysfunction. He denies any symptoms in the other extremities. PAST MEDICAL/SURGICAL HISTORY: Lumbar radiculitis, rheumatoid arthritis, tonsillectomy, testicular exploration. FAMILY HISTORY: Negative for high blood pressure, diabetes, seizure disorder, cancers, depression, heart disease, kidney disease. MEDICATIONS: Current medications are reviewed. ALLERGIES: Plaquenil, tuberculin. REVIEW OF SYSTEMS: Fatigue, weight gain, headaches, tinnitus, bruising, sleep disturbance, depression. Patient denies any fever, chills, chest pains, calf cramps with walking, diarrhea, dysuria, hot or cold spells, nausea or vomiting, nosebleeds, hoarseness, loss of hearing, ear pain, change of vision, stomach pain or ulcers, bowel or bladder dysfunction, shortness of breath, loss of appetite, difficulty swallowing, abnormal heartbeat, swollen ankles, cough, blackouts, seizures, rash or nervous exhaustion. 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 He lives with his family. He denies the use of tobacco or drugs. He limits his alcohol intake to 1 drink every 2 months. PHYSICAL EXAM: Mr. Deng is a 53-year-old male who is 70 inches in height and weighs 260 pounds. He does not appear to be in any acute distress. No ankle edema or calf tenderness was noted. EXAMINATION OF GAIT: He is able to ambulate with equal stride length. No obvious muscle weakness or instability is noted. LUMBOSACRAL EXAM: No paravertebral muscle spasm is noted. No tenderness is elicited in bilateral lumbar paraspinal regions. Range of motion is decreased in flexion and extension with some discomfort. Radicular signs are negative. BILATERAL SACROILIAC JOINT EXAM: Bilateral sacroiliac joints are nontender to palpation. Gaudencio's test was negative for SI joint pain bilaterally. No asymmetry in movement pattern was noted. BILATERAL HIP EXAM: Bilateral hip joint range of motion was full with no groin pain. Bilateral trochanteric regions were nontender to palpation. Bilateral hamstring tightness was noted. No piriformis tenderness was noted. Stretching of the piriformis did not reproduce symptoms. NEUROLOGICAL EXAM: Motor, bulk, and tone are normal in the lower extremities. Motor strength testing reveals no focal weakness. Deep tendon reflexes are 2+ throughout. Sensory exam reveals decreased touch in the right fifth toe. IMPRESSION: 1. Lumbar radiculopathy. 2. Lumbar herniated nucleus pulposus. PLAN: I discussed the clinical findings with the patient. We also discussed the necessity for proceeding with electrodiagnostic study. He wishes to proceed with the test. Selvin Boateng M.D. Electronically Signed 03/25/2014 08:17:12 [facility]/MedQ #: [id number] cc: Catina Rosa M.D. GATOR * Selvin Stern MD - 03/24/2014 11:41 PM CST DATE OF SERVICE: 03/23/2014 LOCATION: [facility] [address] [facility]G STUDY: EXAMINING PHYSICIAN: Selvin Boateng M.D. REFERRING PHYSICIAN: Alejandro Mirza M.D. HISTORY OF PRESENT ILLNESS: For further details, please see dictated clinic note. REFERRAL DIAGNOSES: 1. Lumbar herniated nucleus pulposus. 2. Lumbar radiculopathy. INTERPRETATION: Right peroneal motor nerve conduction study: Recording at the EDB and stimulating at the ankle, below fibular neck and above fibular neck revealed normal distal latency, normal CMAP amplitude and conduction velocity. Right tibial motor nerve conduction study: Recording from the adductor hallucis and stimulating at the ankle and popliteal fossa revealed normal distal latency, normal CMAP amplitude and conduction velocity. Bilateral sural sensory nerve conduction studies: Recording posterior to the lateral malleolus and stimulating at the lower leg revealed normal peak latency and normal SNAP amplitude. Bilateral superficial peroneal sensory nerve conduction studies: Recording from the anterior ankle and stimulating at the lower leg revealed normal peak latency and normal SNAP amplitude. The H-reflex studies were done on both lower extremities. A slight prolongation in the H-wave latency was noted on the right when compared to the left. Needle EMG studies of selected right lower extremity muscles and paraspinals L3-S1 were carried out. The findings are highlighted in the table. CONCLUSION: There is electrodiagnostic evidence to suggest right S1 radiculopathy. Selvin Boateng M.D. Electronically Signed 03/25/2014 08:17:17 [facility]/MedQ #: [id number] GATOR documented in this encounter Plan of Treatment Upcoming Encounters Date Type Department Care Team (Late st Contact Info) Description 06/03/2024 1:00 PM LITIGATOR Appointment [facility] - Rheumatology [address] [place] [address] [id number] 06/03/2024 2:00 PM LITIGATOR Office Visit [facility] - Rheumatology [address] [place] [address] [phone] Gloria Smith MD [address] [place] [address] [phone] documented as of this encounter Visit Diagnoses Diagnosis Thoracic or lumbosacral neuritis or radiculitis, unspecified- Primary documented in this encounter Care Teams Child And Youth Program Assistant Relationship Specialty Start Date End Date Tomas Hyman MD [address] [facility] [address] [place] [address] PCP - General Family Medicine 12/31/13 05/09/18 Isidro Heredia MD Rheumatology 02/09/11 documented as of this encounter
--- OUTSIDE RECORDS SUMMARY | 2024-05-03 04:12 | XMS_ITS | Encounter Summary ---
Author Organization [facility] Address [address] [facility] [place] [address] Care Team Providers Care Banking Pin Adjuster Name Role Phone Isidro Heredia MD Unavailable [phone] Tomas Hyman MD Primary Care Provider [phone] Reason for Visit * Reason Comments Refill Request Encounter Details Date Type Department Care Team (Late Contact Info) Description 09/12/2014 Refill [facility] - Rheumatology [address] [place] [id number] Isidro Heredia MD [address] [place] [id number] Refill Request Social History Tobacco Use [...] (Late Contact Info) Description 06/03/2024 1:00 PM NATUROPATH Appointment [facility] - Rheumatology [address] [place] [address] 06/03/2024 2:00 PM NATUROPATH Office Visit [facility] Rheumatology [address] [place] [address] Gloria Smith MD [address] [place] [address], [place] [address] documented as of this encounter Visit Diagnoses Not on filedocumented in this encounter Care Teams Banking Pin Adjuster Relationship Specialty Start Date End Date Tomas Hyman MD [address] [place] [address] PCP - General Family Medicine 12/31/13 05/09/18 Isidro Heredia MD Rheumatology 02/09/11 documented as of this encounter
--- OUTSIDE RECORDS SUMMARY | 2024-05-03 04:12 | XMS_ITS | Encounter Summary ---
Author Organization [facility] Address [address] [place] [address] Care Team Providers Care Release Of Information Specialist Name Role Phone Isidro Heredia MD Unavailable [phone] Tomas Hyman MD Primary Care Provider Reason for Visit * Reason Comments Pain Knee right Pain Back lower back Pain Hand obdulia hands, swollen a nd hot feeling Pain Muscle upper and lower extr emeties * Evaluate & Treat (Routine) - Closed Specialty Diagnoses / Procedures Referred By Contsarahi t Referred To Contact Diagnoses Rheumatoid arthritis(714.0) ([facility]) Procedures NE OFFICE VISIT DURING HOURS Tomas Hyman MD [address] [place] [address] Isidro Heredia MD [address] [place] [address] Referral ID Status Reason Start Date Expiration Date Visits Re quested Visits Authorized [id number] Closed 08/12/2014 02/08/2015 3 3 Encounter Details Date Type Department Care Team (Late st Contact Info) Description 08/12/2014 11:15 AM CDT Office Visit [facility] - Rheumatology [address] [place] [address] Isidro Heredia MD [address] [place] [address] Rheumatoid arthritis(714.0) (HCC) (Primary Dx) Social [...] Time Taken Comments Blood Pressure 118/76 08/12/2014 12:34 PM CDT Pulse 93 08/12/2014 12:34 PM CDT Temperature - - Respiratory Rate - - Oxygen Saturation - - Inhaled Oxygen Concentration - - Weight 114.8 kg (253 lb) 08/12/2014 12:34 PM CDT Height - - Body Mass Index 36.3 08/12/2014 10:45 AM CDT documented in this encounter Progress Notes * Rea Hagan MA - 08/19/2014 12:36 PM CDTQuick Note: Sent lab results through pt my-chart * Isidro Heredia MD - 08/15/2014 9:58 PM CDTQuick Note: bs 136 sl inc Rosa tr pos 1:80 meron * Isidro Heredia MD - 08/12/2014 1:35 PM CDT Subjective: Chalino Deng 53 y.o. male is here for Chief Complaint Patient presents with ??? Pain Knee right ??? Pain Back lower back ??? Pain Hand obdulia hands, swollen and hot feeling ??? Pain Muscle upper and lower extremeties HPI: On mtx actemra pred 10 mg bid neurontin skelaxin and percocet for chronic pain and ra Pain Level 7/10 lower back He had 5 epid nerve injection Am stiffness 2-3 hrs Global 9/10 Fatigue [...] 81 mg by mouth once daily. ??? oxyCODONE-acetaminophen (PERCOCET) 5-325 MG tablet Take 1 Tab by mouth every 6 hours as needed for Pain. 120 Tab 0 ??? risedronate Sodium (ACTONEL) 150 MG tablet Take 1 Tab by mouth every 30 days. 3 Tab 3 ??? naproxen (NAPROSYN) 500 MG tablet Take [...] PO) Take by mouth once daily. ??? Ywrminnierk-Mzjqjroxd-Nyv C-Mn (GLUCOSAMINE CHONDR 1500 COMPLX PO) Take by mouth once daily. ??? ZYRTEC 10 MG TABS Take 10 mg by mouth once daily. Seasonal (nov. Current Facility-Administered Medications on File Prior to Visit Medication Dose Route Frequency Provider Last Rate Last Dose ??? [COMPLETED] Tocilizumab 800 mg in 0.9% NaCl IVPB 800 mg Intravenous Once Isidro Heredia MD 800 mg at 08/12/14 1047 Patient Active Problem List Diagnosis ??? Rheumatoid [...] genl heart lungs Objective: General Appearance Physical Exam:obese wm in nad using cane for ambulation BP 118/76 Pulse 93 Wt 114.76 kg (253 lb) Head: perrla, eyes no irritation, vision [...] 10/TJ, 6/SJ, 0/muscle tenderness or weakness LUE: 10/TJ, 6/SJ, 0/muscle tenderness or weakness RLE: 1/TJ, 1/SJ, 0/muscle tenderness or weakness LLE: 1/TJ, 1/SJ, 0/muscle tenderness or weakness Assessment: Encounter Diagnoses Name Primary? Rheumatoid arthritis Yes Plan: Plan Orders Placed This Encounter ??? XR HANDS BILAT SINGLE VIEW Standing Status: Future Number of Occurrences: 1 Standing Expiration Date: 08/12/2015 Order Specific Question: Exam to be performed? Answer: Per Radiologist protocol ??? CBC W AUTO DIFFERENTIAL ??? CYCLIC CITRUL PEPTIDE ANTIBODY IGG/IGA (CCP) ??? COMPREHENSIVE METABOLIC PANEL ??? C-REACTIVE PROTEIN ??? SED RATE WESTERGREN ??? RHEUMATOID FACTOR BLOOD QUANTITATIVE ??? DISCONTD: alendronate (FOSAMAX) 70 MG tablet Sig: Take 1 Tab by mouth every 7 days before meal. Take in morning with full glass of water on empty stomach and remain upright for 30 min Dispense: 12 Tab Refill: 3 ??? alendronate (FOSAMAX) 70 MG tablet Sig: Take 1 Tab by mouth every 7 days before meal. Take in morning with full glass of water on empty stomach and remain upright for 30 min Dispense: 12 Tab Refill: 3 Follow up in office in 4 weeks documented in this encounter Procedure Notes * Isidro Heredia MD - 08/13/2014 5:32 PM CDTAssociated Order(s): XR HANDS BILAT SINGLE VIEW Xray bilat hands: Rheumatoid Arthritis with joint space narrowing mcps and radial-carpal joints. Noerosions. documented in this encounter Plan of Treatment Upcoming Encounters Date Type Department Care Team (Late st Contact Info) Description 06/03/2024 1:00 PM QUAIL FARMER Appointment [facility] - Rheumatology [address] [place] [address] 06/03/2024 2:00 PM QUAIL FARMER Office Visit [facility] - Rheumatology [address] [place] [address] Gloria Smith MD [address] [place] [phone] documented as of this encounter Procedures Procedure Name Priority Date/Time Associated Diagnosis Comments CYCLIC CITRUL PEPTIDE ANTIBODY IGG/IGA (CCP) Routine 08/12/2014 2:08 PM CDT Rheumatoid arthritis(714.0) (HCC) RHEUMATOID FACTOR BLOOD QUANTITATIVE Routine 08/12/2014 2:08 PM CDT Rheumatoid arthritis(714.0) (HCC) C-REACTIVE PROTEIN Routine 08/12/2014 2: 08 PM CDT Rheumatoid arthritis(714.0) (HCC) ERYTHROCYTE SEDIMENTATION RATE Routine 08/12/2014 2:08 PM CDT Rheumatoid arthritis(714.0) (HCC) CBC W AUTO DIFFERENTIAL Routine 08/12/2014 2:08 PM CDT Rheumatoid arthritis(714.0) (HCC) COMPREHENSIVE METABOLIC PANEL Routine 08/12/2014 2:08 PM CDT Rheumatoid arthritis(714.0) (HCC) CYCLIC CITRUL PEPTIDE ANTIBODY IGG/IGA (CCP) Routine 08/12/2014 2:03 PM CDT Rheumatoid arthritis(714.0) (HCC) KAMI STAINING PATTERNS REFLEXED Routine 08/12/2014 2:03 PM CDT Rheumatoid arthritis(714.0) (HCC) C-REACTIVE PROTEIN Routine 08/12/2014 2: 03 PM CDT Rheumatoid arthritis(714.0) (HCC) ROSA BLOOD SCREEN W/REFLEX TITER Routine 08/12/2014 2:03 PM CDT Rheumatoid arthritis(714.0) (HCC) CBC W AUTO DIFFERENTIAL Routine 08/12/2014 2:03 PM CDT Rheumatoid arthritis(714.0) (HCC) COMPREHENSIVE METABOLIC PANEL Routine 08/12/2014 2:03 PM CDT Rheumatoid arthritis(714.0) (HCC) XR HAND BILAT 1VW Routine 08/12/2014 1:1 2 PM CDT Rheumatoid arthritis(714.0) (HCC) documented in this encounter Results * RHEUMATOID FACTOR BLOOD QUANTITATIVE (08/12/2014 2:08 PM CDT) Rheumatoid Factor 10.2 0.0 - 13.9 IU/mL [facility] INSURANCE BILL Blood specimen (specimen) BLOOD SPECIMEN / Unknown 08/12/2014 2:08 PM CDT 08/12/2014 6:39 PM CDT Narrative Resulting Agency [facility] [address] ??[facility] [id number] Isidro Heredia MD LAB - CHEMISTRY ORD ERABLES Performing Organization Address City/[facility]/ZIP Co de Phone Number [facility] INSURANCE BILL * SED RATE WESTERGREN (08/12/2014 2:08 PM CDT) Erythrocyte Sedimentation Rate Westergren 13 0 - 30 mm/hr [facility] INSURANCE BILL Blood specimen (specimen) BLOOD SPECIMEN / Unknown 08/12/2014 2:08 PM CDT 08/12/2014 6:39 PM CDT Narrative Resulting Agency Comment [facility] [employer] ??[facility] [id number] Isidro Heredia MD LAB - HEMATOLOGY OR DERABLES [facility] INSURANCE BILL * C-REACTIVE PROTEIN (08/12/2014 2:08 PM CDT) C-Reactive Protein 1.6 0.0 - 4.9 mg/L [facility] INSURANCE BILL Blood specimen (specimen) BLOOD SPECIMEN / Unknown 08/12/2014 2:08 PM CDT 08/12/2014 6:39 PM CDT Narrative Resulting Agency Comment [facility] [address] ??[facility] [id number] Isidro Heredia MD LAB - CHEMISTRY ORD ERABLES [facility] INSURANCE BILL * (ABNORMAL) COMPREHENSIVE METABOLIC PANEL (08/12/2014 2:08 PM CDT) Glucose 139(H) 65 - 99 mg/dL [facility] INSURANCE BILL BUN 22 6 - 24 mg/dL [facility] INSURANCE BILL Creatinine 0.82 0.76 - 1.27 mg/dL [facility] INSURANCE BILL eGFR by MDRD 102 >59 mL/min/1.7 3 [facility] INSURANCE BILL eGFR by MDRD 118 >59 mL/min/1.7 3 [facility] INSURANCE BILL BUN/Creatinine Ratio 27(H) 9 - 20 [facility] INSURANCE BILL Sodium 138 134 - 144 mmol/L [facility] INSURANCE BILL Potassium 4.3 3.5 - 5.2 mmol/L [facility] INSURANCE BILL Chloride 101 97 - 108 mmol/L [facility] INSURANCE BILL CO2 18 18 - 29 mmol/L [facility] INSURANCE BILL Calcium 9.5 8.7 - 10.2 mg/dL [facility] INSURANCE BILL Protein Total 6.8 6.0 - 8.5 g/dL [facility] INSURANCE BILL Albumin 4.5 3.5 - 5.5 g/dL [facility] INSURANCE BILL Globulin Total 2.3 1.5 - 4.5 g/dL [facility] INSURANCE BILL Albumin/Globulin Ratio 2.0 1.1 - 2.5 [facility] INSURANCE BILL Bilirubin Total 0.7 0.0 - 1.2 mg/dL [facility] INSURANCE BILL Alkaline Phosphatase 52 39 - 117 IU/L [facility] INSURANCE BILL AST 22 0 - 40 IU/L [facility] INSURANCE BILL ALT 30 0 - 44 IU/L [facility] INSURANCE BILL Blood specimen (specimen) BLOOD SPECIMEN / Unknown 08/12/2014 2:08 PM CDT 08/12/2014 6:39 PM CDT Narrative Resulting Agency Comment [facility] [address] ??[facility] [id number] Isidro Heredia MD LAB - CHEMISTRY ORD ERABLES [facility] INSURANCE BILL * CYCLIC CITRUL PEPTIDE ANTIBODY IGG/IGA (CCP) (08/12/2014 2:08 PM CDT) Pathologist [facility] CCP Antibodies IgG/IgA 8 0 - 19 units [facility] INSURANCE BILL Comment: ? Negative ? <20 ? Weak positive ?20 - 39 ? Moderate positive ??40 - 59 ? Strong positive ?>59 BLOOD SPECIMEN / Unknown 08/12/2014 2:08 PM CDT 08/12/2014 6:39 PM CDT Narrative Resulting Agency Comment [facility] [address] ??[facility] [id number] Isidro Heredia MD LAB - SEROLOGY MARII ARAUJO [facility] INSURANCE BILL * (ABNORMAL) CBC W AUTO DIFFERENTIAL (08/12/2014 2:08 PM CDT) Pathologist [facility] WBC 10.7 3.4 - 10.8 x10E3/uL [facility] INSURANCE BILL RBC 4.36 4.14 - 5.80 x10E6/uL [facility] INSURANCE BILL Hemoglobin 13.2 12.6 - 17.7 g/dL [facility] INSURANCE BILL Hematocrit 40.5 37.5 - 51.0 % [facility] INSURANCE BILL MCV 93 79 - 97 fL [facility] INSURANCE BILL MCH 30.3 26.6 - 33.0 pg [facility] INSURANCE BILL MCHC 32.6 31.5 - 35.7 g/dL [facility] INSURANCE BILL RDW 14.7 12.3 - 15.4 % [facility] INSURANCE BILL Platelet Count 205 150 - 379 x10E3/uL [facility] INSURANCE BILL Granulocytes % 80 % [facility] INSURANCE BILL Lymphocytes % 17 % [facility] INSURANCE BILL Monocytes % 3 % [facility] INSURANCE BILL Eosinophils % 0 % [facility] INSURANCE BILL Basophils % 0 % [facility] INSURANCE BILL Immature Cells NOT NEEDED [facility] INSURANCE BILL Comment:Ancillary determined the test is not needed Granulocytes Absolute 8.5(H) 1.4 - 7.0 x10E3/uL [facility] INSURANCE BILL Lymphocytes Absolute 1.8 0.7 - 3.1 x10E3/uL [facility] INSURANCE BILL Monocytes Absolute 0.3 0.1 - 0.9 x10E3/uL [facility] INSURANCE BILL Eosinophils Absolute 0.0 0.0 - 0.4 x10E3/uL [facility] INSURANCE BILL [...] 6:39 PM CDT Narrative Resulting Agency Comment [address] ??[facility] [id number] Isidro Heredia MD LAB - HEMATOLOGY OR DERABLES [facility] INSURANCE BILL * KAMI STAINING PATTERNS REFLEXED (PO REF LAB) (08/12/2014 2:03 PM CDT) Homogeneous Pattern 1:80 [facility] INSURANCE BILL Nucleolar [...] (Smooth) ? Histone ? Speckled ? Sm, CORN PICKER, SCL-70, ??SLE,MCTD,Scleroderma,Sjogrens ? SS-A/SS-B ? Nucleolar ?SCL-70, PM-1/SCL ??High titers Scleroderma Poly- ? myositis/Scleroderma Overlap ? Centromere ?? Centromere ?PSS w/Crest syndrome variable ?? 08/12/2014 2:03 PM CDT 08/12/2014 6:39 PM CDT Narrative Resulting Agency Comment [facility] [place] [address] ??[place] [id number] Isidro Heredia MD LAB - PATHOLOGY/CYT OLOGY ORDERABLES Performing Organization Address [facility] Co de Phone Number [facility] INSURANCE BILL * ROSA BLOOD SCREEN W/REFLEX TITER (08/12/2014 2:03 PM CDT) ROSA See patterns [facility] INSURANCE BILL Comment: ?Negative ?? <1:80 ?Borderline ??1:80 ?Positive ?? >1:80 Blood specimen (specimen) BLOOD SPECIMEN / Unknown 08/12/2014 2:03 PM CDT 08/12/2014 6:39 PM CDT Narrative Resulting Agency Comment [facility] [address] ??[place] [phone] Isidro Heredia MD LAB - CHEMISTRY ORD ERABLES Performing Organization Address [facility]/ZIP Co de Phone Number [facility] INSURANCE BILL * CYCLIC CITRUL PEPTIDE ANTIBODY IGG/IGA (CCP) (08/12/2014 2:03 PM CDT) CCP Antibodies IgG/IgA 10 0 - 19 units [facility] INSURANCE BILL Comment: ? Negative ? <20 ? Weak positive ?20 - 39 ? Moderate positive ??40 - 59 ? Strong positive ?>59 BLOOD SPECIMEN / Unknown 08/12/2014 2:03 PM CDT 08/12/2014 6:39 PM CDT Narrative Resulting Agency Comment [facility] [address] ??[facility] [id number] Isidro Heredia MD LAB - SEROLOGY MARII ARAUJO Performing Organization Address [facility] Co de Phone Number [facility] INSURANCE BILL * C-REACTIVE PROTEIN (08/12/2014 2:03 PM CDT) C-Reactive Protein 1.5 0.0 - 4.9 mg/L [facility] INSURANCE BILL Blood specimen (specimen) BLOOD SPECIMEN / Unknown 08/12/2014 2:03 PM CDT 08/12/2014 6:39 PM CDT Narrative Resulting Agency Comment [facility] [place] [address] [facility] ??[place] [id number] Isidro Heredia MD LAB - CHEMISTRY CALEB FIELDS [facility] INSURANCE BILL * (ABNORMAL) COMPREHENSIVE METABOLIC PANEL (08/12/2014 2:03 PM CDT) Glucose 136(H) 65 - 99 mg/dL [facility] INSURANCE BILL BUN 22 6 - 24 mg/dL [facility] INSURANCE BILL Creatinine 0.79 0.76 - 1.27 mg/dL [facility] INSURANCE BILL eGFR by MDRD 104 >59 mL/min/1.7 3 [facility] INSURANCE BILL eGFR by MDRD 120 >59 mL/min/1.7 3 [facility] INSURANCE BILL BUN/Creatinine Ratio 28(H) 9 - 20 [facility] INSURANCE BILL Sodium 139 134 - 144 mmol/L [facility] INSURANCE BILL Potassium 4.3 3.5 - 5.2 mmol/L [facility] INSURANCE BILL Chloride 101 97 - 108 mmol/L [facility] INSURANCE BILL CO2 18 18 - 29 mmol/L [facility] INSURANCE BILL Calcium 9.5 8.7 - 10.2 mg/dL [facility] INSURANCE BILL Protein Total 7.0 6.0 - 8.5 g/dL [facility] INSURANCE BILL Albumin 4.5 3.5 - 5.5 g/dL [facility] INSURANCE BILL Globulin Total 2.5 1.5 - 4.5 g/dL [facility] INSURANCE BILL Albumin/Globulin Ratio 1.8 1.1 - 2.5 [facility] INSURANCE BILL Bilirubin Total 0.7 0.0 - 1.2 mg/dL [facility] INSURANCE BILL Alkaline Phosphatase 52 39 - 117 IU/L [facility] INSURANCE BILL AST 21 0 - 40 IU/L [facility] INSURANCE BILL ALT 30 0 - 44 IU/L [facility] INSURANCE BILL Blood specimen (specimen) BLOOD SPECIMEN / Unknown 08/12/2014 2:03 PM CDT 08/12/2014 6:39 PM CDT Narrative Resulting Agency Comment [facility] [address] ??[facility] [id number] Isidro Heredia MD LAB - CHEMISTRY ORD ERABLES [facility] INSURANCE BILL * (ABNORMAL) CBC W AUTO DIFFERENTIAL (08/12/2014 2:03 PM CDT) WBC 10.2 3.4 - 10.8 x10E3/uL [facility] INSURANCE BILL RBC 4.30 4.14 - 5.80 x10E6/uL [facility] INSURANCE BILL Hemoglobin 13.3 12.6 - 17.7 g/dL [facility] INSURANCE BILL Hematocrit 40.6 37.5 - 51.0 % [facility] INSURANCE BILL MCV 94 79 - 97 fL [facility] INSURANCE BILL MCH 30.9 26.6 - 33.0 pg [facility] INSURANCE BILL MCHC 32.8 31.5 - 35.7 g/dL [facility] INSURANCE BILL RDW 15.2 12.3 - 15.4 % [facility] INSURANCE BILL Platelet Count 201 150 - 379 x10E3/uL [facility] INSURANCE BILL Granulocytes % 79 % [facility] INSURANCE B[facility] Lymphocytes % 18 % [facility] INSURANCE B[facility] Monocytes % 3 % [facility] INSURANCE BILL Eosinophils % 0 % [facility] INSURANCE BILL Basophils % 0 % [facility] INSURANCE BILL Immature Cells NOT NEEDED [facility] INSURANCE BILL Comment:Ancillary determined the test is not needed Granulocytes Absolute 8.0(H) 1.4 - 7.0 x10E3/uL [facility] INSURANCE BILL Lymphocytes Absolute 1.8 0.7 - 3.1 x10E3/uL [facility] INSURANCE BILL Monocytes Absolute 0.3 0.1 - 0.9 x10E3/uL [facility] INSURANCE BILL Eosinophils Absolute 0.0 0.0 - 0.4 x10E3/uL [facility] INSURANCE BILL [...] PM CDT Narrative Resulting Agency Comment [facility] [address] ??[facility] [id number] Isidro Heredia MD LAB - HEMATOLOGY OR DERABLES [facility] INSURANCE BILL * XR HANDS BILAT SINGLE VIEW (08/12/2014 1:12 PM CDT) Anatomical Region Laterality Modality Wrist / Hand, Upper Extremity Co mputed Radiography Narrative 08/13/2014 5:38 PM CDT Isidro Heredia MD ? 08/13/2014 ??5:38 PM Xray bilat hands: Rheumatoid Arthritis with joint space narrowing mcps and radial-carpal joints. No erosions. Isidro Heredia MD DIAGNOSTIC IMAGING ORDERABLES documented in this encounter Visit Diagnoses Diagnosis Rheumatoid arthritis(714.0) (HCC)- Primary Rheumatoid arthritis documented in this encounter Care Teams Release Of Information Specialist Relationship Specialty Start Date End Date Tomas Hyman MD [address] [place] [address] PCP - General Family Medicine 12/31/13 05/09/18 Isidro Heredia MD Rheumatology 02/09/11 documented as of this encounter
--- OUTSIDE RECORDS SUMMARY | 2024-05-03 04:12 | XMS_ITS | Encounter Summary ---
Author Organization [facility] Address [address] [facility] [place] [address] Care Team Providers Care Gridcap Machine Operator Name Role Phone Isidro Heredia MD Unavailable [phone] Tomas Hyman MD Primary Care Provider [phone] Reason for Visit * Treatment (Routine) - Closed Specialty Diagnoses / Procedures Referred By Lawrence shah Referred To Contact [place] [address] [address] [facility] Pain Care [address] [place] [address] Referral ID Status Reason Start Date Expiration Date Visits Re quested Visits Authorized [id number] Closed 12/21/2014 06/19/2015 1 6 Encounter Details Date Type Department Care Team (Latest Contact Info) Description 12/21/2014 9:19 AM CDT Hospital Encounter [facility] Pain Care [address] [place] [address] [place] [address] [address] Discharge Disposition: Home or Self [...] Sig Dispensed Refills Start Date End Date Lyoiwgsxdnp-Bgawrauco-Z it C-Mn (GLUCOSAMINE CHONDR 1500 COMPLX PO) [...] Contact Info) Description 06/03/2024 1:00 PM MANAGER STRATE[employer]IC PARTNERSHIPS Appointment [facility] - Rheumatology [address] [place] [phone] 06/03/2024 2:00 PM MANAGER [employer]NER[employer]IPS Office Visit [facility] - Rheumatology [address] [place] [address] [phone] Gloria Smith MD [address] [place] [phone] documented as of this encounter Visit Diagnoses Not on filedocumented in this encounter Care Teams Gridcap Machine Operator Relationship Specialty Start Date End Date Tomas Hyman MD [address] [place] [address] PCP - General Family Medicine 12/31/13 05/09/18 Isidro Heredia MD Rheumatology 02/09/11 documented as of this encounter
--- OUTSIDE RECORDS SUMMARY | 2024-05-03 04:12 | XMS_ITS | Encounter Summary ---
Author Organization [facility] Address [address] [facility] [place] [address] Care Team Providers Care Outreach Assistant Name Role Phone Isidro Heredia MD Unavailable Tomas Hyman MD Primary Care Provider [phone] Encounter Details Date Type Department Care Team (Latest Contact Info) Description 12/29/2014 9:05 AM CDT - 12/29/2014 11:59 PM CDT Hospital Encounter [facility] Pain Care [address] [place] [address] [place] [address] [place] [address] Discharge Disposition: Home or Self Care Social [...] Sign Reading Time Taken Comments Blood Pressure 125/79 12/29/2014 9:50 AM CDT Pulse 68 12/29/2014 9:50 AM CDT Temperature - - Respiratory Rate 16 12/29/2014 9:50 AM CDT Oxygen Saturation 98% 12/29/2014 9:50 AM CDT Inhaled Oxygen Concentration - - Weight - - Height - - Body Mass Index - - documented in this encounter Discharge Instructions * Patient Instructions* Desiree Mckinney RN - 12/29/2014 9:11 AM CDT [facility] Procedure Center Pain Discharge Instructions Selective [...] headache, or any other problems, please call [phone] or after hours callDr. Mirza at [phone] and tell them your physician's name. The exchange will alert the physician rn long term care. If sedation is given: No sedation given. For Your Next Visit: No additional instructions. Other Instructions: May remove band-aid in 12 Hours. Return in 1 week KIMBERLEY#3. RN Signature: Date: documented in this encounter Medications at Time of Discharge Medication Sig Dispensed Refills Start Date End Date Campxbtaipj-Ujvosovzw-U it C-Mn (GLUCOSAMINE CHONDR 1500 COMPLX PO) [...] Procedure Notes * Alejandro Mirza MD - 12/29/2014 9:53 AM CDTAssociated Order(s): PAIN MANAGEMENT PROCEDURE TIME Lumbar KIMBERLEY L5-S1 Chalino Deng Provider: Alejandro Mirza MD 1960 Date: 12/29/2014 Tomas Hyman (General) Pt. presents today for a injection. Allergies: Allergies as of 12/29/2014 - reviewed 12/29/2014 Allergen Reaction Noted ??? Plaquenil [hydroxychloroquine sulfate] [...] Coumidin, Plavix or other blood thinners. Responsible cart driver is not needed due to the patient not having sedation. The patient was placed in a prone position and was prepped with Chloraprep. Procedure: Lidocaine 1Estimated Blood Loss: None% was injected with a 25 gauge needle at L5 verifying placement with the guided fluoroscopy. An 18 gauge Touhy needle was placed into the epidural space using loss or resistance technique with preservative free (PF) normal saline. No [...] Contact Info) Description 06/03/2024 1:00 PM METAL OFF BEARER Appointment [facility] - Rheumatology [address] [place] [address] 06/03/2024 2:00 PM METAL OFF BEARER Office Visit [facility] - Rheumatology [address] [place] [address] Gloria Smith MD [address] [place] [phone] documented as of this encounter Procedures Procedure Name Priority Date/Time Associated Diagnosis Comments PAIN MANAGEMENT PROCEDURE TIME Routine 12/29/2014 9:49 AM CDT Displacement of lumbar intervertebral disc without myelopathy Thoracic or lumbosacral neuritis or radiculitis, unspecified documented in this encounter Results * PAIN MANAGEMENT PROCEDURE TIME (12/29/2014 9:49 AM CDT) Anatomical Region Laterality Modality X-Ray Angiograph y Narrative 12/29/2014 9:53 AM CDT Alejandro Mirza MD ? 12/29/2014 ??9:53 AM Lumbar KIMBERLEY L5-S1 Chalino Deng ?Provider: Alejandro Mirza MD 1960 ? Date: ?12/29/2014 Tomas Hyman (General) Pt. presents today for a injection. ? Allergies: Allergies as of 12/29/2014 - reviewed 12/29/2014 Allergen Reaction Noted ? ? Plaquenil [hydroxychloroquine [...] Coumidin, Plavix or other blood thinners. ??Responsible cart driver is not needed due to the patient not having sedation. The patient was placed in a prone position and was prepped with Chloraprep. Procedure: ??Lidocaine 1Estimated Blood Loss: None% was injected with a 25 gauge needle at L5 verifying placement with the guided fluoroscopy. ??An 18 gauge Touhy needle was placed into the epidural space using loss or resistance technique with preservative free (PF) normal saline. ??No cerebral spinal fluid or [...] MD Alejandro Mirza MD DIAGNOSTIC IMAGING O RDDONNIE documented in this encounter Visit Diagnoses Diagnosis Displacement of lumbar intervertebral disc without myelopathy Thoracic or lumbosacral neuritis or radiculitis, unspecified documented in this encounter Administered Medications Inactive Administered Medications - up to 3 most recent administrations Medication Order MAR Action Action Date Dose Rate Site methylPREDNISolone acetate (DEPO-MEDROL) injection 80 mg 80 mg, Intramuscular, INTRA-PROCEDURE ONCE, 1 dose, On Sun12/29/14 at 0912 $ Admin. by Other Provider 12/29/2014 9:36 AM CDT 80 mg Back documented in this encounter Care Teams Outreach Assistant Relationship Specialty Start Date End Date Tomas Hyman MD [address] [facility] [address] [place] [address] PCP - General Family Medicine 12/31/13 05/09/18 Isidro Heredia MD Rheumatology 02/09/11 documented as of this encounter
--- OUTSIDE RECORDS SUMMARY | 2024-05-03 04:13 | XMS_ITS | Encounter Summary ---
Author Organization [facility] Address [address] [facility] [place] [address] Care Team Providers Care Bilingual Teacher Name Role Phone Isidro Doll MD Unavailable [phone] Tomas Hyman MD Primary Care Provider [phone] Reason for Visit * Reason Onset Date Comments Referral Request 02/17/2014 Encounter Details Date Type Department Care Team (Late st Contact Info) Description 02/17/[address] [facility] - Rheumatology [address] [place] [address] Isidro Doll MD [address] [place] [address] Referral Request Social History Tobacco Use Types Packs/Day [...] Telephone Encounter - Yamileth Rodríguez MA - 02/26/2014 10:52 AM CDT Yasmeen faxed a request to * Telephone Encounter - Hammad Rodriguez - 02/23/2014 11:12 AM CDT URGENT. Pt f/u on referral request from last week. He has appt tomorrow. Please advise when this isaddressed. * Telephone Encounter - Hammad Rodriguez - 02/19/2014 10:17 AM CDT Called pt & gave him the message. His PCP will not do the referral since Dr. Valiente referred pt to pain mgmt dr. Pt is cancelling appt for today & will reschedule for 02/24/14. [facility] [place] [facility] just need our office to call to get referral addressed for next weeks visit. * Telephone Encounter - Camille Torrez MA - 02/19/2014 10:09 AM CDT He will have to reschedule his appointment if his PCP will not do the referral. Since we are the specialists, we will have to call [facility] [place]. * Telephone Encounter - Hammad Rodriguez - 02/19/2014 9:41 AM CDT Pt called back to f/u on status of referral request for today's appt. * Telephone Encounter - Erika Julien - 02/18/2014 4:31 PM CDT Pt called back and he said he spoke with the pcp and that dr doll referred him to dr alan doll would have to do the referral * Telephone Encounter - Erika Julien - 02/17/2014 2:21 PM CDT lmor to call * Telephone Encounter - Yamileth Rodríguez MA - 02/17/2014 1:48 PM CDT His appt is not until and we are not the PCP * Telephone Encounter - Erika Julien - 02/17/2014 11:47 AM CDT SPECIALIST: dr christian phillips NPI(OPTIONAL): PHONE: [id number] FAX: [phone] DIAGNOSIS/CODE: eval for back and leg pain APPT DATE: 02/19/14 INSURANCE: [employer] ID #: [id number] documented in this encounter Plan of Treatment Upcoming Encounters Date Type Department Care Team (Late st Contact Info) Description 06/03/2024 1:00 PM PROFESSIONAL SERVICES CONSULTANT Appointment [facility] - Rheumatology [address] [place] [address] [phone] 06/03/2024 2:00 PM PROFESSIONAL SERVICES CONSULTANT Office Visit [facility] - Rheumatology [address] [place] [address] [phone] Gloria Smith MD [address] [place] [phone] documented as of this encounter Visit Diagnoses Not on filedocumented in this encounter Care Teams Bilingual Teacher Relationship Specialty Start Date End Date Tomas Hyman MD [address] [facility] [address] [place] [address] PCP - General Family Medicine 12/31/13 05/09/18 Isidro Doll MD Rheumatology 02/09/11 documented as of this encounter
--- OUTSIDE RECORDS SUMMARY | 2024-05-03 04:13 | XMS_ITS | Encounter Summary ---
Author Organization [facility] Address [address] [facility] [place] [address] Care Team Providers Care Clinical Practice Consultant Name Role Phone Isidro Heredia MD Unavailable [phone] Tomas Hyman MD Primary Care Provider [phone] Reason for Visit * Oncology Prior Authorization - Closed Specialty Diagnoses / Procedures Referred By Contsarahi t Referred To Contact Infusion Therapy Nurse Diagnoses Rheumatoid arthritis(714.0) ([facility]) Procedures [place] INJECTION TOCILIZUMAB 1 MG Isidro Heredia MD [address] [place] [address] [id number] Referral ID Status Reason Start Date Expiration Date Visits Re quested Visits Authorized [id number] Closed 05/01/2013 04/29/2014 1 12 Encounter Details Date Type Department Care Team (Late st Contact Info) Description 03/12/2014 12:57 PM DIAPER MACHINE TENDER - 03/12/2014 11:59 PM DIAPER MACHINE TENDER Hospital Encounter [facility] Medical [facility] - Rheumatology [address] [place] [address] Isidro Heredia MD [address] [place] [address] Discharge Disposition: Home or Self [...] Sign Reading Time Taken Comments Blood Pressure 149/96 03/12/2014 1:44 PM DIAPER MACHINE TENDER Pulse 99 03/12/2014 1:44 PM DIAPER MACHINE TENDER Temperature 37.1 ??C (98.8 ??F) 03/12/2014 1:44 PM CS T Respiratory Rate 16 03/12/2014 1:44 PM DIAPER MACHINE TENDER Oxygen Saturation - - Inhaled Oxygen Concentration - - Weight - - Height 177.8 cm (5' 10 ) 03/12/2014 1:44 PM DIAPER MACHINE TENDER Body Mass Index - - documented in this encounter Discharge Instructions * Discharge Instructions* Carlos Foreman RN - 03/12/2014 1:42 PM DIAPER MACHINE TENDER [place] Rheumatology Post Infusion instructions You have [...] through Sunday 9-5 call the office at [phone] After hours or on the weekend call the exchange at [phone] If you have had lab work done [...] have chosen [facility] as your provider. Carlos Foreman RN ER MACHINE TENDER documented in this encounter Medications at Time of Discharge Medication Sig Dispensed Refills Start Date End Date Cjgyhhseoyy-Znksxzcjd-Nq t C-Mn (GLUCOSAMINE CHONDR 1500 COMPLX PO) [...] (PERCOCET) 5-325 MG tabletIndications:Rheuma toid arthritis(714.0) ([facility]) Take 1 Tab by mouth every [...] Progress Notes * Carlos Foreman RN - 03/12/2014 1:39 PM CST JOSE Deng [id number] 03/12/2014 Diagnosis: Rheumatoid arthritis [714.0]. Patient questionnaire results Health Assessment Questionnaire There were no vitals taken for this visit. @ MEDICATIONS FOR CURRENT ENCOUNTER: ?? SCHEDULED MEDICATIONS: ?? Tocilizumab 800 mg in 0.9% NaCl IVPB, Intravenous, Once ?? CONTINUOUS MEDICATIONS: PRN MEDICATIONS: ?? Number of 22 gauge 1 inch placed in Left hand ?? 1 attempt(s). Patient monitored throughout procedure. Tolerated well? Yes Next treatment? 4wk Carlos Foreman RN ER MACHINE TENDER documented in this encounter Plan of Treatment Upcoming Encounters Date Type Department Care Team (Late st Contact Info) Description 06/03/2024 1:00 PM DIAPER MACHINE TENDER Appointment [facility] - Rheumatology [address] [place] [address] 06/03/2024 2:00 PM DIAPER MACHINE TENDER Office Visit [facility] - Rheumatology [address] [place] [address] Gloria Smith MD [address] [place] [phone] documented as of this encounter Visit Diagnoses Diagnosis Rheumatoid arthritis(714.0) (HCC) Rheumatoid arthritis documented in this encounter Administered Medications Inactive Administered Medications - up to 3 most recent administrations Medication Order MAR Action Action Date Dose Rate Site Tocilizumab 800 mg in 0.9% NaCl IVPB 800 mg, at 140 mL/hr, Intravenous, ONCE, 1 dose, On Gabriela 03/12/14 at 0900, 2 vials used of Actemra 400MG [facility] [id number] with 0 WASTE $ Given 03/12/2014 1:39 PM DIAPER MACHINE TENDER 800 mg 140 m L/hr documented in this encounter Care Teams Clinical Practice Consultant Relationship Specialty Start Date End Date Tomas Hyman MD [address] [facility] [address] [place] [address] PCP - General Family Medicine 12/31/13 05/09/18 Isidro Heredia MD Rheumatology 02/09/11 documented as of this encounter
--- OUTSIDE RECORDS SUMMARY | 2024-05-03 04:13 | XMS_ITS | Encounter Summary ---
Author Organization [facility] Address [address] [facility] [place] [address] Care Team Providers Care Investigator Internal Affairs Name Role Phone Isidro Heredia MD Unavailable [phone] Tomas Hyman MD Primary Care Provider [phone] Encounter Details Date Type Department Care Team (Latest Contact Info) Description 03/10/2014 10:19 AM TRANSFER SPECIALIST - 03/10/2014 11:59 PM TRANSFER SPECIALIST Hospital Encounter [facility] Pain Care [address] [place] [address] [place] [address] [place] [phone] Discharge Disposition: Home or Self Care Social [...] Sign Reading Time Taken Comments Blood Pressure 153/106 03/10/2014 11:12 AM TRANSFER SPECIALIST Pulse 110 03/10/2014 11:12 AM TRANSFER SPECIALIST Temperature - - Respiratory Rate 16 03/10/2014 11:12 AM TRANSFER SPECIALIST Oxygen Saturation 98% 03/10/2014 11:12 AM TRANSFER SPECIALIST Inhaled Oxygen Concentration - - Weight - - Height - - Body Mass Index - - documented in this encounter Discharge Instructions * Patient Instructions* Nena Pond RN - 03/10/2014 10:32 AM TRANSFER SPECIALIST [facility] Procedure Center Pain Discharge Instructions Selective Epidural Caudal Epidural Facet Joint Sacroiliac Joint Epidural Steroid Steroid Injection Steroid Injection Injection Injection Injection Special Instructions: No soaking in water for 48 hours. Use ice pack today, 15 minutes out of every hour until bedtime as needed. In the morning [...] headache, or any other problems, please call [phone] or after hours call Dr. Mirza at [phone] and tell them your physician's name. The exchange will alert the physician [employer] financial[employer] consultant. If sedation is given: No sedation given. For Your Next Visit: No additional instructions. Other Instructions: May remove band-aid in 12 Hours. Return in one week for TFE #2. Patient Signature: Date: RN Signature: Date: SFER SPECIALIST documented in this encounter Medications at Time of Discharge Medication Sig Dispensed Refills Start Date End Date Tjzrldrukyy-Covmxliit-Aq t C-Mn (GLUCOSAMINE CHONDR 1500 COMPLX PO) [...] oxyCODONE-acetaminophen (PERCOCET) 5-325 MG tabletIndications:Rheuma toid arthritis(714.0) ([facility]) Take 1 Tab by mouth every 6 hours as needed for Pain. 120 Tab 0 02/12/2014 03/12/2014 predniSONE (DELTASONE) 10 MG tablet TAKE 1 [...] Procedure Notes * Alejandro Mirza MD - 03/10/2014 11:15 AM CSTAssociated Order(s): PAIN MANAGEMENT PROCEDURE TIME Right L5 & S1 Transforaminal Epidural Injection Chalino Deng Provider: Alejandro Mirza MD 1960 Date: 03/10/2014 Tomas Hyman Allergies: Allergies as of 03/10/2014 - Complete 03/10/2014 Allergen Reaction Noted ??? Plaquenil [hydroxychloroquine sulfate] [...] identified, and marked by Dr. Mirza. Responsible cdl team truck driver is not needed due to [...] Add Levels Lumb/Sac, Fluoro. Alejandro Mirza MD SFER SPECIALIST documented in this encounter Plan of Treatment Upcoming Encounters Date Type Department Care Team (Late st Contact Info) Description 06/03/2024 1:00 PM TRANSFER SPECIALIST Appointment [facility] - Rheumatology [address] [place] [address] [phone] 06/03/2024 2:00 PM TRANSFER SPECIALIST Office Visit [facility] - Rheumatology [address] [place] [address] [phone] Gloria Smith MD [address] [place] [phone] documented as of this encounter Procedures Procedure Name Priority Date/Time Associated Diagnosis Comments PAIN MANAGEMENT PROCEDURE TIME Routine 03/10/2014 11:10 AM TRANSFER SPECIALIST Displacement Of Lumbar Intervertebral Disc Without Myelopathy Thoracic or lumbosacral neuritis or radiculitis, unspecified documented in this encounter Results * PAIN MANAGEMENT PROCEDURE TIME (03/10/2014 11:10 AM TRANSFER SPECIALIST) Anatomical Region Laterality Modality X-Ray Angiograph y Narrative 03/10/2014 11:16 AM TRANSFER SPECIALIST Alejandro Mirza MD ? 03/10/2014 11:16 AM Right L5 & S1 Transforaminal Epidural Injection Chalino Deng ? Provider: Alejandro Mirza MD 1960 ? Date: 03/10/2014 ?? Tomas Hyman Allergies: ?? Allergies as of 03/10/2014 - Complete 03/10/2014 Allergen Reaction Noted ? ? Plaquenil [hydroxychloroquine [...] identified, and marked by Dr. Mirza. ??Responsible cdl team truck driver is not needed due to [...] Add Levels Lumb/Sac, Fluoro. Alejandro Mirza MD Procedure Note Alejandro Mirza MD - 03/10/2014 11:15 AM CST Right L5 & S1 Transforaminal Epidural Injection Chalino Deng Provider: Aljeandro Mirza MD 1960 Date: 03/10/2014 Tomas Hyman Allergies: Allergies as of 03/10/2014 - Complete 03/10/2014 Allergen Reaction Noted ? ? Plaquenil [hydroxychloroquine sulfate] 05/15/2011 ? ? Tuberculin ppd 07/27/2008 Procedure: TFE Right L5 & S1 Diagnosis/Indication::Lumbar Transforaminal epidural injection 722.10 Indication for Procedure: Intractable radicular pain of the lowerextremity. Other conservative therapies and/or treatments provided inadequate painrelief. Procedure: Lumbar/Sacral Transforaminal Injection. Informed Consent: After the patient ,Chalino Deng was informed of the risksand benefits of the procedure and all questions were answered, consent wassigned. Risks benefits, and alternative were discussed including risk ofinfection, bleeding , nerve damage, worsening pain, no pain reliefwhatsoever, transient increase in blood pressure, blood sugar, fluidretention,possibility of headache, possibility of shingles, or any otherviral outbreak secondary to immunosuppressant effects of steroid use. Prep: Pt identified, proper procedure identified, site identified, andmarked by Dr. Mirza. Responsible cdl team truck driver is not needed due to the patientnot having sedation.The patient was placed in a prone position and wasprepped with Chloraprep. Fluoroscopy: Procedure done under fluoroscopy; verifying needle placementwith fluoroscopy . The transverse process/sacral foramen was identifiedand lidocaine 1% was injected. Local Injection: Lidocaine 1.0% into the skin and subcutaneous tissuesusing a 25 gauge needle. Needle Placement: A 22 gauge 3 1/2 spinal needle was then insertedthrough the anesthetized area until the tip stimulated the nerve root orwas in the six o'clock position to the pedicle in AP and superior foramenin Lat fluoroscopic visualization. Nerve Root injected: Right L5 & S1. Total Lidocaine: !%; 6 ml Dexamethasone 10mg The patient tolerated the procedure well and there were nocomplications. The patient was taken to the recovery area. The patientremained in stable condition with no apparent complications. Vital signsstable. Injection site clean, dry, and intact. Post procedureinstructions were given to the patient and a follow up appointment wasconfirmed. The patient was discharged with information on how to reachthe clinic at anytime for questions or concerns. Pt ambulatory, deniescomplaints, DC to home. Pt survey given. Procedure codes: Epi Transfor Lumbar/Sac (S), Epi Add Levels Lumb/Sac,Fluoro. Alejandro Mirza MD Alejandro Mirza MD DIAGNOSTIC [...] 10 mg, Intravenous, ONCE, 1 dose, On Sun03/10/14 at 1100 $ Admin. by Other Provider 03/10/2014 10:45 AM TRANSFER SPECIALIST 10 mg lidocaine (XYLOCAINE MPF) 1 % injection Infiltration, ONCE, 1 dose, On Sun03/10/14 at 1100 $ Admin. by Other Provider 03/10/2014 10:45 AM TRANSFER SPECIALIST 5 mL documented in this encounter Care Teams Investigator Internal Affairs Relationship Specialty Start Date End Date Tomas Hyman MD [address] [facility] [address] [place] [address] PCP - General Family Medicine 12/31/13 05/09/18 Isidro Heredia MD Rheumatology 02/09/11 documented as of this encounter
--- OUTSIDE RECORDS SUMMARY | 2024-05-03 04:13 | XMS_ITS | Encounter Summary ---
Author Organization [facility] Address [address] [facility] [place] [address] Care Team Providers Care Wellness Consultant Name Role Phone Hitesh Solis MD Unavailable Tomas Hyman MD Primary Care Provider Reason for Referral * Evaluate & Treat - Closed Specialty Diagnoses / Procedures Referred By Lawrence shah Referred To Contact Diagnoses Lumbar radiculopathy Hitesh Solis MD [address] [place] [address] [place] [address] [address] Referral ID Status Reason Start Date Expiration Date V isits Requested Visits Authorized [id number] Closed Specialty Services Required 02/25/2014 02/25/2015 6 6 Reason for Visit * Reason Comments Rheumatoid Arthritis Pain Joint upper and lower extr emities * Evaluate & Treat (Routine) - Closed Specialty Diagnoses / Procedures Referred By Lawrence shah Referred To Contact Diagnoses Rheumatoid arthritis(714.0) ([facility]LY [facility]) Procedures CT OFFICE VISIT DURING HOURS Tomas Hyman MD [address] [facility] [address] [place] [address] Hitesh Solis MD [address] [place] [address] Referral ID Status Reason Start Date Expiration Date Visits Re quested Visits Authorized [id number] Closed 02/10/2014 02/10/2015 6 6 Encounter Details Date Type Department Care Team (Late st Contact Info) Description 02/12/2014 2:00 PM CDT Office Visit [facility] - Rheumatology [address] [place] [address] Hitesh Solis MD [address] [place] [address] ZOHAIB ESPINO [id number] Rheumatoid arthritis (HCC) (Primary Dx); Chronic pain [...] Sign Reading Time Taken Comments Blood Pressure 142/98 02/12/2014 2:15 PM CDT Pulse 80 02/12/2014 2:15 PM CDT Temperature - - Respiratory Rate - - Oxygen Saturation - - Inhaled Oxygen Concentration - - Weight 117.3 kg (258 lb 9.6 oz) 02/12/2014 2:15 PM CDT Height - - Body Mass Index 37.11 01/14/2014 2:31 PM CDT documented in this encounter Progress Notes * Hitesh Solis MD - 02/12/2014 2:29 PM CDT Subjective: Chalino Deng 53 y.o. male is here for Chief Complaint Patient presents with ??? Rheumatoid Arthritis ??? Pain Joint upper and lower extremities HPI:on mtx actemra pred 10 mg bid for ra Pain Level 9/10 head and neck shoulder hands knees ankles Lower back Am stiffness 2 hrs Global 9/10 Fatigue severe Medication Side Effects no Current Outpatient Prescriptions [...] PO) Take by mouth once daily. ??? Ksnkzudozzg-Ksldlgfcl-Hdk C-Mn (GLUCOSAMINE CHONDR 1500 COMPLX PO) Take [...] of Systems: General: No fever, chills, sweats, He has 5 lbweight loss Eyes: No redness, discharge, blurred vision [...] tearing, sneezing, cough, eye irritation Systems reviewed genk heart lungs Objective: General Appearance Physical Exam: BP 142/98 Pulse 80 Wt 117.3 kg (258 lb 9.6 oz) Head: perrla, eyes no irritation, vision [...] 6/SJ, 0/muscle tenderness or weakness LUE: 13/TJ, 5/SJ, 0/muscle tenderness or weakness RLE: 1 /TJ, 1/SJ, 0/muscle tenderness or weakness LLE: 1/TJ, 1/SJ, 0/muscle tenderness or weakness Assessment: Encounter Diagnoses Name Primary? Rheumatoid arthritis Yes ??? Chronic pain syndrome Poorly controlled ra and chronic pain same meds Try pain clinic Plan: Plan Orders Placed This Encounter ??? XR CERVICAL SPINE 2 OR 3 VW Standing Status: Future Number of Occurrences: 1 Standing Expiration Date: 02/12/2015 Order Specific Question: Exam to be performed? Answer: Per Radiologist protocol ??? AMB REFERRAL TO PAIN CLINIC Standing Status: Future Number of Occurrences: Standing Expiration Date: 02/12/2015 Referral Type: Evaluate & Treat Referral Reason: Specialty Services Required Referred to Provider: Alejandro Mirza MD Number of Visits Requested: 1 ??? oxyCODONE-acetaminophen (PERCOCET) 5-325 MG tablet Sig: Take 1 Tab by mouth every 6 hours as needed for Pain. Dispense: 120 Tab Refill: 0 Follow up in office in 4 weeks documented in this encounter Miscellaneous Notes * Addendum Note - Hitesh Solis MD - 02/25/2014 4:40 PM CDTAddended by: HITESH SOLIS on: 02/25/2014 04:40 PM Modules accepted: Orders documented in this encounter Plan of Treatment Upcoming Encounters Date Type Department Care Team (Late st Contact Info) Description 06/03/2024 1:00 PM MICROSOFT NET DEVELOPER Appointment [facility] - Rheumatology [address] [place] [address] 06/03/2024 2:00 PM MICROSOFT NET DEVELOPER Office Visit [facility] - Rheumatology [address] [place] [address] Gloria Smith MD [address] [place] [phone] Scheduled Referrals Name Type Priority Associated Diagnoses Orde r Schedule AMB REFERRAL TO PAIN CLINIC Outpatient Referral Routine Lumbar radiculopathy 1 Occurrences starting 02/25/2014 until 02/25/2015 documented as of this encounter Results * XR CERVICAL SPINE 2 OR 3 VW (02/25/2014 6:25 PM CDT) Anatomical Region Laterality Modality Spine Other Narrative 02/25/2014 6:25 PM CDT Hitesh Solis MD ? 02/25/2014 ??6:25 PM Xrays cervical spine: DDD with narrowing disc spaces C3-C4, C4-C5, C5-C6, C7 not seen. Hitesh Solis MD DIAGNOSTIC IMAGING ORDERABLES documented in this encounter Visit Diagnoses Diagnosis Rheumatoid arthritis(714.0) ([facility])- Primary Rheumatoid arthritis Chronic pain syndrome Lumbar radiculopathy Thoracic or lumbosacral neuritis or radiculitis, unspecified Rheumatoid arthritis(714.0) ([facility])- Primary Rheumatoid arthritis documented in this encounter Care Teams Wellness Consultant Relationship Specialty Start Date End Date Tomas Hyman MD [address] [facility] [address] [place] [address] PCP - General Family Medicine 12/31/13 05/09/18 Hitesh Solis MD Rheumatology 02/09/11 documented as of this encounter
--- OUTSIDE RECORDS SUMMARY | 2024-05-03 04:13 | XMS_ITS | Encounter Summary ---
Author Organization [facility] Address [address] [place] [address] Care Team Providers Care District Customs Director Name Role Phone Nolberto Nicole MD Primary Care Provider [phone] Isidro Heredia MD Unavailable [phone] Reason for Visit * Treatment (Routine) - Closed Specialty Diagnoses / Procedures Referred By Lawrence shah Referred To Contact Infusion Therapy Nurse Diagnoses Rheumatoid arthritis(714.0) ([facility]) Procedures [place] INJECTION TOCILIZUMAB 1 MG Isidro Heredia MD [address] [place] [address] Referral ID Status Reason Start Date Expiration Date Visits Re quested Visits Authorized [id number] Closed 05/01/2013 04/29/2014 1 12 Encounter Details Date Type Department Care Team (Late st Contact Info) Description 12/12/2013 8:50 AM CDT - 12/12/2013 11:59 PM CDT Hospital Encounter [facility] - Rheumatology [address] [place] [address] Isidro Heredia MD [address] [place] [address] Discharge Disposition: Home or Self [...] Sign Reading Time Taken Comments Blood Pressure 149/81 12/12/2013 9:26 AM CDT Pulse 99 12/12/2013 9:26 AM CDT Temperature 36.8 ??C (98.2 ??F) 12/12/2013 9:26 AM CD T Respiratory Rate 16 12/12/2013 9:26 AM CDT Oxygen Saturation - - Inhaled Oxygen Concentration - - Weight 119.3 kg (263 lb) 12/12/2013 9:26 AM CDT Height 177.8 cm (5' 10 ) 12/12/2013 9:26 AM CDT Body Mass Index 37.74 12/12/2013 9:26 AM CDT documented in this encounter Discharge Instructions * Discharge Instructions* Manisha Sierra RN - 12/12/2013 9:[address] Rheumatology Post Infusion instructions You have [...] Sunday through Sunday-5 call the office at [phone] After hours or on the weekend call the exchange at [phone] If you have had lab work done [...] [facility] as your provider. Manisha Sierra RN documented in this encounter Medications at Time of Discharge Medication Sig Dispensed Refills Start Date End Date Coeqwdezwdw-Bhrqedeid-Hu t C-Mn (GLUCOSAMINE CHONDR 1500 COMPLX PO) [...] mouth daily before breakfast. 90 Cap 3 10/14/2012 01/14/2014 fish oil/omega-3 fatty acids (FISH OIL) 1000 MG capsule Take 1,000 mg by mouth 2 times daily. 01/07/2015 metaxalone (SKELAXIN) 800 MG tablet Take 1 Tab by mouth 3 times daily. 270 Tab 3 11/12/2013 09/12/2014 methotrexate 2.5 MG tablet Take 6 Tabs by mouth every 7 days. 72 Tab 3 03/17/2013 01/25/2014 Multiple Vitamins-Minerals (OCUVITE PO) Take 1 Tab by mouth once daily 10/24/2017 naproxen (NAPROSYN) 500 MG tablet Take 1 Tab by mouth 2 times daily. 180 Tab 3 08/19/2012 06/08/2014 niacin, Immediate Release, 500 MG tablet Take 500 mg by mouth at bedtime. 01/14/2014 oxyCODONE-acetaminophen (PERCOCET) 5-325 MG tabletIndications:Rheuma toid arthritis(714.0) ([facility]) Take 1 Tab by mouth every 6 hours as needed for Pain. 120 Tab 0 11/12/2013 12/31/2013 predniSONE (DELTASONE) 10 MG tablet TAKE 1 TABLET BY MOUTH 2 TIMES A DAY 180 Tab 3 07/17/2013 11/05/2014 risedronate Sodium (ACTONEL) 150 MG tablet Take 1 Tab by mouth every 30 days. 3 Tab 3 05/12/2013 06/08/2014 simvastatin (ZOCOR) 20 MG tablet Take 20 mg by mouth at bedtime. 01/14/2014 tamsulosin CR 24hr (FLOMAX) 0.4 MG capsule [...] of this encounter Progress Notes * Manisha Sierra RN - 12/12/2013 10:57 AM CDT JOSE Deng [id number] 12/12/2013 Diagnosis: Rheumatoid arthritis [714.0]. Patient questionnaire results Health Assessment Questionnaire MHAQ: Pain: Global: Rapid 3: Sleep: GI: Fatigue: BP 149/81 Pulse 99 Temp(Src) 98.2 ??F Resp 16 Wt 119.296 kg (263 lb) BMI 37.74 kg/m2 @ MEDICATIONS FOR CURRENT ENCOUNTER: ?? SCHEDULED MEDICATIONS: ?? CONTINUOUS MEDICATIONS: ?? 800mg Actemra PRN MEDICATIONS: No current facility-administered medications for this encounter. ?? Number of 22 gauge 1 inch placed in Left hand ?? 1 attempt(s). Patient monitored throughout procedure. Tolerated well? Yes Next treatment? 4 weeks Manisha Sierra RN documented in this encounter Plan of Treatment Upcoming Encounters Date Type Department Care Team (Late st Contact Info) Description 06/03/2024 1:00 PM BOOKKEEPING MANAGER Appointment [facility] - Rheumatology [address] [place] [address] 06/03/2024 2:00 PM BOOKKEEPING MANAGER Office Visit [facility] - Rheumatology [address] [place] [address] Gloria Smith MD [address] [place] [phone] documented as of this encounter Visit Diagnoses Diagnosis Rheumatoid arthritis(714.0) ([facility])- Primary Rheumatoid arthritis documented in this encounter Administered Medications Inactive Administered Medications - up to 3 most recent administrations Medication Order MAR Action Action Date Dose Rate Site Tocilizumab 800 mg in 0.9% NaCl IVPB 800 mg, at 100 mL/hr, Intravenous, ONCE, 1 dose, On Sun12/12/13 at 0930 $ Given 12/12/2013 9:25 AM CDT 800 mg 100 mL/hr documented in this encounter Care Teams District Customs Director Relationship Specialty Start Date End Date Nolberto Nicole MD PCP - General 07/21/08 12/30/13 Isidro Heredia MD Rheumatology 02/09/11 documented as of this encounter
--- OUTSIDE RECORDS SUMMARY | 2024-05-03 04:13 | XMS_ITS | Encounter Summary ---
Author Organization [facility] Address [address] [place] [address] Care Team Providers Care Biologist Name Role Phone Nolberto Nicole MD Primary Care Provider [phone] Isidro Heredia MD Unavailable [phone] Reason for Visit * Reason Onset Date Comments Encounter Opened In Error 09/04/2013 Encounter Details Date Type Department Care Team (Late st Contact Info) Description 09/04/2013 Orders Only [facility] Medical [facility] - Rheumatology [address] [place] [address] Isidro Heredia MD [address] [place] [address] ERRONEOUS ENCOUNTER--DISREGARD Social History Tobacco Use Types Packs/Day Years [...] Progress Notes * Yamileth Rodríguez MA - 09/04/2013 4:05 PM CDT Chalino Deng encounter was opened in error. Please disregard any activity associated with this encounter. documented in this encounter Plan of Treatment Upcoming Encounters Date Type Department Care Team (Late st Contact Info) Description 06/03/2024 1:00 PM TELECOM NETWORK MANAGER Appointment [facility] - Rheumatology [address] [place] [address] 06/03/2024 2:00 PM TELECOM NETWORK MANAGER Office Visit [facility] - Rheumatology [address] [place] [address] Gloria Smith MD [address] [place] [phone] documented as of this encounter Visit Diagnoses Diagnosis ERRONEOUS ENCOUNTER--DISREGARD- Primary documented in this encounter Care Teams Biologist Relationship Specialty Start Date End Date Nolberto Nicole MD PCP - General 07/21/08 12/30/13 Isidro Heredia MD Rheumatology 02/09/11 documented as of this encounter
--- OUTSIDE RECORDS SUMMARY | 2024-05-03 04:13 | XMS_ITS | Encounter Summary ---
Author Organization [facility] Address [address] [place] [address] Care Team Providers Care Gold Leaf Gilder Name Role Phone Isidro Heredia MD Unavailable [phone] Tomas Hyman MD Primary Care Provider [phone] Reason for Visit * Treatment (Routine) - Closed Specialty Diagnoses / Procedures Referred By Contsarahi t Referred To Contact Pain Management Diagnoses Displacement of lumbar intervertebral disc without myelopathy Thoracic or lumbosacral neuritis or radiculitis, unspecified Procedures [place] INJ,FORAMEN,L/S,1 LEVEL [place] INJ,FORAMEN,L/S,[place] [id number] [address] [facility] [address] [place] [address] Referral ID Status Reason Start Date Expiration Date Visits Re quested Visits Authorized [id number] Closed 03/10/2014 09/06/2014 6 6 Encounter Details Date Type Department Care Team (Latest Contact Info) Description 03/17/2014 9:09 AM FINANCIAL CONTROLLER Hospital Encounter [facility] [address] [place] [address] [place] [id number] [address] Discharge Disposition: Home or Self [...] Sig Dispensed Refills Start Date End Date Epbyucziqfo-Ouqqvhdri-Sj t C-Mn (GLUCOSAMINE CHONDR 1500 COMPLX PO) [...] 5-325 MG tabletIndications:Rheuma toid arthritis(714.0) ([facility]) Take 1 Tab by mouth every [...] Contact Info) Description 06/03/2024 1:00 PM FINANCIAL CONTROLLER Appointment [facility] - Rheumatology [address] [place] [phone] 06/03/2024 2:00 PM FINANCIAL CONTROLLER Office Visit [facility] - Rheumatology [address] [place] [address] [phone] Gloria Smith MD [address] [place] [phone] documented as of this encounter Visit Diagnoses Not on filedocumented in this encounter Care Teams Gold Leaf Gilder Relationship Specialty Start Date End Date Tomas Hyman MD [address] [facility] [address] [place] [address] PCP - General Family Medicine 12/31/13 05/09/18 Isidro Heredia MD Rheumatology 02/09/11 documented as of this encounter
--- OUTSIDE RECORDS SUMMARY | 2024-05-03 04:13 | XMS_ITS | Encounter Summary ---
Author Organization [facility] Address [address] [place] [address] Care Team Providers Care Management Trainee Marketing Name Role Phone Isidro Heredia MD Unavailable [phone] Tomas Hyman MD Primary Care Provider [phone] Reason for Visit * Treatment (Routine) - Closed Specialty Diagnoses / Procedures Referred By Lawrence shah Referred To Contact Infusion Therapy Nurse Diagnoses Rheumatoid arthritis(714.0) ([facility]) Procedures [place] INJECTION TOCILIZUMAB 1 MG Isidro Heredia MD [address] [place] [address] Referral ID Status Reason Start Date Expiration Date Visits Re quested Visits Authorized [id number] Closed 05/01/2013 04/29/2014 1 12 Encounter Details Date Type Department Care Team (Late st Contact Info) Description 01/14/2014 2:00 PM CDT - 01/14/2014 11:59 PM CDT Hospital Encounter [facility] - Rheumatology [address] [place] [address] Isidro Heredia MD [address] [place] [address] Discharge Disposition: Home or Self [...] Sign Reading Time Taken Comments Blood Pressure 156/90 01/14/2014 2:31 PM CDT Pulse 115 01/14/2014 2:31 PM CDT Temperature 36.7 ??C (98 ??F) 01/14/2014 2:31 PM CDT Respiratory Rate 18 01/14/2014 2:31 PM CDT Oxygen Saturation - - Inhaled Oxygen Concentration - - Weight 119.3 kg (263 lb) 01/14/2014 2:31 PM CDT Height 177.8 cm (5' 10 ) 01/14/2014 2:31 PM CDT Body Mass Index 37.74 01/14/2014 2:31 PM CDT documented in this encounter Discharge Instructions * Discharge Instructions* Carlos Foreman, RN - 01/14/2014 2:34 PM CDT [place] Rheumatology Post Infusion instructions [...] through Sunday 9-5 call the office at [phone] After hours or on the weekend call the exchange at [phone] If you have had lab work done [...] Sig Dispensed Refills Start Date End Date Ncivqntclsy-Nqhgttzyw-Hh t C-Mn (GLUCOSAMINE CHONDR 1500 COMPLX PO) [...] as needed for Pain. 120 Tab 0 12/31/2013 02/12/2014 predniSONE (DELTASONE) 10 MG tablet TAKE 1 [...] Progress Notes * Carlos Foreman RN - 01/14/2014 2:42 PM CDT JOSE Chalino Deng [id number] 01/14/2014 Diagnosis: Rheumatoid arthritis [714.0]. Patient questionnaire results Health Assessment Questionnaire BP 156/90 Pulse 115 Temp(Src) 98 ??F Resp 18 Wt 119.296 kg (263 lb) BMI 37.74 kg/m2 @ MEDICATIONS FOR CURRENT ENCOUNTER: ?? SCHEDULED MEDICATIONS: ?? Tocilizumab 800 mg in 0.9% NaCl IVPB, Intravenous, Once ?? CONTINUOUS MEDICATIONS: PRN MEDICATIONS: ?? Number of 22 gauge 1 inch placed in Left hand ?? 1 attempt(s). 2x 400mg vials of Actemra given With no waste. Patient monitored throughout procedure. Tolerated well? Yes Next treatment? 4wks Carlos Foreman RN documented in this encounter Plan of Treatment Upcoming Encounters Date Type Department Care Team (Late st Contact Info) Description 06/03/2024 1:00 PM PREFLIGHT MECHANIC Appointment [facility] - Rheumatology [address] [place] [address] 06/03/2024 2:00 PM PREFLIGHT MECHANIC Office Visit [facility] - Rheumatology [address] [place] [address] Gloria Smith MD [address] [place] [address] [facility] [place] [phone] documented as of this encounter Visit Diagnoses Diagnosis Rheumatoid arthritis(714.0) ([facility])- Primary Rheumatoid arthritis documented in this encounter Administered Medications Inactive Administered Medications - up to 3 most recent administrations Medication Order MAR Action Action Date Dose Rate Site Tocilizumab 800 mg in 0.9% NaCl IVPB 800 mg, at 100 mL/hr, Intravenous, ONCE, 1 dose, On Sun01/14/14 at 0800, 2 vials used of Actemra 400MG [facility] [id number] with 0 WASTE $ Given 01/14/2014 2:39 PM CDT 800 mg 100 m L/hr documented in this encounter Care Teams Management Trainee Marketing Relationship Specialty Start Date End Date Tomas Hyman MD [address] [facility] [address] [place] [address] PCP - General Family Medicine 12/31/13 05/09/18 Isidro Heredia MD Rheumatology 02/09/11 documented as of this encounter
--- OUTSIDE RECORDS SUMMARY | 2024-05-03 04:13 | XMS_ITS | Encounter Summary ---
Author Organization [facility] Address [address] [facility] [place] [address] Care Team Providers Care Scientific Laboratory Supervisor Name Role Phone Isidro Heredia MD Unavailable [phone] Tomas Hyman MD Primary Care Provider Encounter Details Date Type Department Care Team (Late Contact Info) Description 03/12/2014 Orders Only [facility] - Rheumatology [address] [place] [address] Isidro Heredia MD [address] [place] [address] Rheumatoid arthritis (HCC) Social History Tobacco [...] Progress Notes * Isidro Heredia MD - 03/15/2014 10:02 PM CSTQuick Note: All labs ok GUARD documented in this encounter Plan of Treatment Upcoming Encounters Date Type Department Care Team (Late Contact Info) Description 06/03/2024 1:00 PM LIFEGUARD Appointment [facility] - Rheumatology [address] [place] [address] 06/03/2024 2:00 PM LIFEGUARD Office Visit [facility] - Rheumatology [address] [place] [address] Gloria Smith MD [address] [place], [place] [address] [phone] documented as of this encounter Procedures Procedure Name Priority Date/Time Associated Diagnosis Comments ERYTHROCYTE SEDIMENTATION RATE Routine 03/12/2014 3:00 PM LIFEGUARD Rheumatoid Arthritis (Hcc) CBC W AUTO DIFFERENTIAL Routine 03/12/2014 3:00 PM LIFEGUARD Rheumatoid Arthritis (Hcc) COMPREHENSIVE METABOLIC PANEL Routine 03/12/2014 3:00 PM LIFEGUARD Rheumatoid Arthritis (Hcc) documented in this encounter Results * SED RATE WESTERGREN (03/12/2014 3:00 PM LIFEGUARD) Erythrocyte Sedimentation Rate Westergren 3 0 - 30 mm/hr [facility] INSURANCE BILL Blood specimen (specimen) BLOOD SPECIMEN / Unknown 03/12/2014 3:00 PM LIFEGUARD 03/12/2014 6:44 PM LIFEGUARD Narrative Resulting Agency Comment [facility] [address] ??[facility] [id number] Isidro Heredia MD LAB - HEMATOLOGY OR DERABLES [facility] INSURANCE BILL * (ABNORMAL) COMPREHENSIVE METABOLIC PANEL (03/12/2014 3:00 PM LIFEGUARD) Glucose 101(H) 65 - 99 mg/dL [facility] INSURANCE BILL BUN 27(H) 6 - 24 mg/dL [facility] INSURANCE BILL Creatinine 0.79 0.76 - 1.27 mg/dL [facility] INSURANCE BILL eGFR by MDRD 104 >59 mL/min/1.7 3 [facility] INSURANCE BILL eGFR by MDRD 120 >59 mL/min/1.7 3 [facility] INSURANCE BILL BUN/Creatinine Ratio 34(H) 9 - 20 [facility] INSURANCE BILL Sodium [...] g/dL [facility] INSURANCE BILL Albumin/Globulin Ratio 1.7 1.1 - 2.5 [facility] INSURANCE BILL Bilirubin Total 0.3 0.0 - 1.2 mg/dL [facility] INSURANCE BILL Alkaline Phosphatase 51 39 - 117 IU/L [facility] INSURANCE BILL AST 22 0 - 40 IU/L [facility] INSURANCE BILL ALT 29 0 - 44 IU/L [facility] INSURANCE BILL Blood specimen (specimen) BLOOD SPECIMEN / Unknown 03/12/2014 3:00 PM LIFEGUARD 03/12/2014 6:44 PM LIFEGUARD Narrative Resulting Agency Comment [facility] [address] ??[facility] [phone] Isidro Heredia MD LAB - CHEMISTRY ORD ERABLES [facility] INSURANCE BILL * CBC W AUTO DIFFERENTIAL (03/12/2014 3:00 PM LIFEGUARD) WBC 9.8 3.4 - 10.8 x10E3/uL [facility] INSURANCE BILL [...] INSURANCE BILL Platelet Count 181 150 - 379 x10E3/uL [facility] INSURANCE BILL Granulocytes % 73 % [facility] INSURANCE BILL Lymphocytes % [...] Blood specimen (specimen) BLOOD SPECIMEN / Unknown 03/12/2014 3:00 PM LIFEGUARD 03/12/2014 6:44 PM LIFEGUARD Narrative Resulting Agency Comment [facility] [address] ??[facility] [phone] Isidro Heredia MD LAB - HEMATOLOGY OR DERABLES [facility] INSURANCE BILL documented in this encounter Visit Diagnoses Diagnosis Rheumatoid arthritis(714.0) ([facility] [place] [facility])- Primary Rheumatoid arthritis documented in this encounter Care Teams Scientific Laboratory Supervisor Relationship Specialty Start Date End Date Tomas Hyman MD [address] [place] [address] PCP - General Family Medicine 12/31/13 05/09/18 Isidro Heredia MD Rheumatology 02/09/11 documented as of this encounter
--- OUTSIDE RECORDS SUMMARY | 2024-05-03 04:13 | XMS_ITS | Encounter Summary ---
Author Organization [facility] Address [address] [place] [address] Care Team Providers Care Dean Of Instruction Name Role Phone Isidro Heredia MD Unavailable [phone] Tomas Hyman MD Primary Care Provider [phone] Reason for Visit * Reason Onset Date Comments Letter for School or Work 03/13/2014 Encounter Details Date Type Department Care Team (Late st Contact Info) Description 03/13/2014 Telephone [facility] - Rheumatology [address] [place] [address] Isidro Heredia MD [address] [place] [address] Letter for School or Work Social History Tobacco Use Types Packs/Day Years [...] encounter Miscellaneous Notes * Telephone Encounter - Erika Julien - 03/13/2014 3:26 PM CST Informed pt of message NT ANALYST * Telephone Encounter - Rea Hagan MA - 03/13/2014 3:18 PM CST Please let pt know 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 NT ANALYST * Telephone Encounter - Hai Rodriguezdoreen - 03/13/2014 2:32 PM CST wrote letter for pt's employer, but it didn't state that it was related to RA. Pt needs a revised letter that states pt's condition is related to his RA. Pt notes he wants to seed cone picker revised letter on 03/17/14. Please call with any questions at work number if calling within next couple of hours; otherwise call pt on mobile number. NT ANALYST documented in this encounter Plan of Treatment Upcoming Encounters Date Type Department Care Team (Late st Contact Info) Description 06/03/2024 1:00 PM GEOINT ANALYST Appointment [facility] - Rheumatology [address] [place] [address] 06/03/2024 2:00 PM GEOINT ANALYST Office Visit [facility] - Rheumatology [address] [place] [address] Gloria Smith MD [address] [place] [phone] documented as of this encounter Visit Diagnoses Not on filedocumented in this encounter Care Teams Dean Of Instruction Relationship Specialty Start Date End Date Tomas Hyman MD [address] [facility] [address] [place] [address] PCP - General Family Medicine 12/31/13 05/09/18 Isidro Heredia MD Rheumatology 02/09/11 documented as of this encounter
--- OUTSIDE RECORDS SUMMARY | 2024-05-03 04:13 | XMS_ITS | Encounter Summary ---
Author Organization [facility] Address [address] [facility] [place] [address] Care Team Providers Care Specialist Managers Name Role Phone Isidro Heredia MD Unavailable [phone] Tomas Hyman MD Primary Care Provider Reason for Visit * Radiology Services - Closed Specialty Diagnoses / Procedures Referred By Lawrence shah Referred To Contact Diagnoses Lumbar radiculopathy Procedures MRI SPINE LUMBAR NON CONTRAST MRI SPINE LUMBAR WITH AND WITHOUT CONTRAST Isidro Heredia MD [address] [place] [address] Referral ID Status Reason Start Date Expiration Date Visits Re quested Visits Authorized [id number] Closed 01/02/2014 07/01/2014 1 1 Encounter Details Date Type Department Care Team (Late st Contact Info) Description 01/02/2014 7:32 AM CDT - 01/02/2014 11:59 PM T Hospital Encounter [facility] Health Imaging Services - MRI [address] [place] [address] Isidro Heredia MD [address] [place], [place] [phone] Discharge Disposition: Home or Self Care Social [...] Sig Dispensed Refills Start Date End Date Qgcoontnrve-Pmzdchrjv-Dq t C-Mn (GLUCOSAMINE CHONDR 1500 COMPLX PO) [...] oxyCODONE-acetaminophen (PERCOCET) 5-325 MG tabletIndications:Rheuma toid arthritis(714.0) ([facility]) Take 1 Tab by mouth every 6 [...] as of this encounter Progress Notes * Salina Magallanes MD - 01/16/2014 10:11 AM CDTQuick Note: Not my patient. * Rea Hagan MA - 01/16/2014 10:07 AM CDTQuick Note: Results were discuss at ov 01/14/2014 * Isidro Heredia MD - 01/04/2014 5:27 PM CDTQuick Note: ddd L4-L5 L2-L3 documented in this encounter Plan of Treatment Upcoming Encounters Date Type Department Care Team (Late st Contact Info) Description 06/03/2024 1:00 PM SUPERVISOR ASSEMBLY AND PACKING Appointment [facility] - Rheumatology [address] [place] [address] 06/03/2024 2:00 PM SUPERVISOR ASSEMBLY AND PACKING Office Visit [facility] - Rheumatology [address] [place] [address] Gloria Smith MD [address] [place] [phone] documented as of this encounter Procedures Procedure Name Priority Date/Time Associated Diagnosis Comments MRI LUMBAR SPINE WO CONTRAST Routine 01/02/2014 7:57 AM CDT Lumbar radiculopathy documented in this encounter Results * MRI SPINE LUMBAR NON CONTRAST (01/02/2014 [...] 11:19 AM Isidro Heredia MD MR ORDERABLES documented in this encounter Visit Diagnoses Diagnosis Lumbar radiculopathy Thoracic or lumbosacral neuritis or radiculitis, unspecified documented in this encounter Care Teams Specialist Managers Relationship Specialty Start Date End Date Tomas Hyman MD [address] [facility] [address] [place] [address] PCP - General Family Medicine 12/31/13 05/09/18 Isidro Heredia MD Rheumatology 02/09/11 documented as of this encounter
--- OUTSIDE RECORDS SUMMARY | 2024-05-03 04:13 | XMS_ITS | Encounter Summary ---
Author Organization [facility] Address [address] [place] [address] Care Team Providers Care Wound Care Rn Name Role Phone Nolberto Nicole MD Primary Care Provider Isidro Heredia MD Unavailable [phone] Reason for Visit * Reason Comments Rheumatoid Arthritis Pain Back lower rt side down l eg. off work for 2 weeks Swelling hands, knees, should ers Pain Joint all over * Consult, Test & Treat (Routine) - Closed Specialty Diagnoses / Procedures Referred By Contac t Referred To Contact Diagnoses Rheumatoid arthritis(714.0) ([facility]) Procedures [place] OFFICE VISIT DURING HOURS Nolberto Nicole MD [address] [place] [address] Isidro Heredia MD [address] [place] [address] Referral ID Status Reason Start Date Expiration Date Visits Re quested Visits Authorized [id number] Closed 09/30/2013 03/28/2014 1 6 Encounter Details Date Type Department Care Team (Late st Contact Info) Description 11/12/2013 3:30 PM CDT Office Visit [facility] - Rheumatology [address] [place] [address] Isidro Heredia MD [address] [facility] [address] Rheumatoid arthritis (HCC) (Primary Dx); Chronic [...] Sign Reading Time Taken Comments Blood Pressure 120/82 11/12/2013 4:11 PM CDT Pulse 80 11/12/2013 4:11 PM CDT Temperature - - Respiratory Rate - - Oxygen Saturation - - Inhaled Oxygen Concentration - - Weight 119.3 kg (263 lb) 11/12/2013 4:11 PM CDT Height - - Body Mass Index 37.74 10/15/2013 11:22 AM CDT documented in this encounter Progress Notes * Isidro Heredia MD - 11/12/2013 4:47 PM CDT Subjective: Chalino Deng 53 y.o. male is here for Chief Complaint Patient presents with ??? Rheumatoid Arthritis ??? Pain Back lower rt side down leg. off work for 2 weeks ??? Swelling hands, knees, shoulders ??? Pain Joint all over Rapid 3 6.7 HPI: On mtx pred 10 mg bid naprosyn and actemra for ra and percocet for chronic pain Pain Level 8/10 he has left lumbar radiculopathy For 10 days Am stiffness 2 hrs Global 8/10 Fatigue yes Medication Side Effects no Current Outpatient Prescriptions on File Prior to Visit Medication Sig Dispense Refill ??? tocilizumab 20 MG/ML in 0.9% NaCl [...] every 30 days. 3 Tab 3 ??? methotrexate 2.5 MG tablet Take 6 Tabs by mouth every 7 days. 72 Tab 3 ??? tamsulosin CR 24hr (FLOMAX) 0.4 MG capsule Take 1 Cap by mouth once daily. Take 30 minutes after a meal at the same time each day. 30 Cap 5 ??? esomeprazole (NEXIUM) 40 MG capsule Take 1 Cap by mouth daily before breakfast. 90 Cap 3 ??? naproxen (NAPROSYN) 500 MG tablet Take 1 Tab by mouth 2 times daily. 180 Tab 3 ??? fish oil/omega-3 fatty acids (FISH OIL) 1000 MG capsule Take 1,000 mg by mouth 2 times daily. ??? niacin, Immediate Release, 500 MG tablet Take 500 mg by mouth at bedtime. ??? Multiple Vitamin (MULTI-VITAMIN PO) Take by mouth once daily. ??? Mbzipiqsarq-Bcxzgciyv-Iod C-Mn (GLUCOSAMINE CHONDR 1500 COMPLX PO) Take by mouth once daily. ??? ZYRTEC 10 MG TABS Take 10 mg by mouth once daily. Seasonal (nov. Current Facility-Administered Medications on File Prior to Visit Medication Dose Route Frequency Provider Last Rate Last Dose ??? tocilizumab (ACTEMRA) 800 mg in 0.9% NaCl IVPB 800 mg Intravenous Once Isidro Heredia MD 800 mg at 11/12/13 1658 Patient Active Problem List Diagnosis ??? Rheumatoid [...] Physical Exam: wd wn wm in nad a/o x3 BP 120/82 Pulse 80 Wt 119.296 kg (263 lb) BMI 37.74 kg/m2 Head: [...] 8/SJ, 0/muscle tenderness or weakness LUE: 13/TJ, 2/SJ, 0/muscle tenderness or weakness RLE: 1/TJ, 1/SJ, 0/muscle tenderness or weakness LLE: 1/TJ, 1/SJ, 0/muscle tenderness or weakness Assessment: Encounter Diagnoses Name Primary? Rheumatoid arthritis Yes ??? Chronic pain syndrome ??? Lumbar radiculopathy Poorly controlled same meds Consider tameka Plan: Plan Orders Placed This Encounter ??? oxyCODONE-acetaminophen (PERCOCET) 5-325 MG tablet Sig: Take 1 Tab by mouth every 6 hours as needed for Pain. Dispense: 120 Tab Refill: 0 ??? metaxalone (SKELAXIN) 800 MG tablet Sig: Take 1 Tab by mouth 3 times daily. Dispense: 270 Tab Refill: 3 Follow up in office in 4 weeks documented in this encounter Plan of Treatment Upcoming Encounters Date Type Department Care Team (Late st Contact Info) Description 06/03/2024 1:00 PM PLATEN BUILDER UP Appointment [facility] - Rheumatology [address] [place] [address] [phone] 06/03/2024 2:00 PM PLATEN BUILDER UP Office Visit [facility] - Rheumatology [address] [place] [address] [phone] Gloria Smith MD [address] [place] [phone] documented as of this encounter Visit Diagnoses Diagnosis Rheumatoid arthritis(714.0) ([facility])- Primary Rheumatoid arthritis Chronic pain syndrome Lumbar radiculopathy Thoracic or lumbosacral neuritis or radiculitis, unspecified documented in this encounter Care Teams Wound Care Rn Relationship Specialty Start Date End Date Nolberto Nicole MD PCP - General 07/21/08 12/30/13 Isidro Heredia MD Rheumatology 02/09/11 documented as of this encounter
--- OUTSIDE RECORDS SUMMARY | 2024-05-03 04:13 | XMS_ITS | Encounter Summary ---
Author Organization [facility] Address [address] [facility] [place] [address] Care Team Providers Care Chancery Clerk Name Role Phone Isidro Heredia MD Unavailable [phone] Tomas Hyman MD Primary Care Provider [phone] Reason for Visit * Reason Comments Arthritis Encounter Details Date Type Department Care Team (Latest Contact Info) Description 02/12/2014 2:00 PM CDT Procedure visit [facility] [address] [place] [phone] Rheumatoid arthritis (HCC) Social History Tobacco Use Types Packs/Day Years Used Date Smoking Tobacco: Never Smokeless Tobacco: Never Alcohol Use Standard Drinks/Week Comments No 0 (1 standard drink = 0.6 oz pur e alcohol) Sex and Gender Information Value Date Recorded Sex Assigned at Not on file Gender Identity Not on file Sexual Orientation Not on file documented as of this encounter Procedure Notes * Isidro Heredia MD - 02/25/2014 6:22 PM CDTAssociated Order(s): XR CERVICAL SPINE 2 OR 3 VW Xrays cervical spine: DDD with narrowing disc spaces C3-C4, C4-C5, C5-C6, C7 not seen. documented in this encounter Plan of Treatment Upcoming Encounters Date Type Department Care Team (Late st Contact Info) Description 06/03/2024 1:00 PM CLINICAL CYTOPATHOLOGIST Appointment [facility] - Rheumatology [address] [place] [address] 06/03/2024 2:00 PM CLINICAL CYTOPATHOLOGIST Office Visit [facility] - Rheumatology [address] [place], [place] [phone] Gloria Smith MD [address] [place] [phone] documented as of this encounter Procedures Procedure Name Priority Date/Time Associated Diagnosis Comments XR CERVICAL SPINE 2 OR 3VW Routine 02/25/2014 6:25 PM CDT Rheumatoid Arthritis (Hcc) documented in this encounter Results * XR CERVICAL SPINE 2 OR 3 VW (02/25/2014 6:25 PM CDT) Anatomical Region Laterality Modality Spine Other Narrative 02/25/2014 6:25 PM CDT Isidro Heredia MD ? 02/25/2014 ??6:25 PM Xrays cervical spine: DDD with narrowing disc spaces C3-C4, C4-C5, C5-C6, C7 not seen. Isidro Heredia MD DIAGNOSTIC IMAGING ORDERABLES documented in this encounter Visit Diagnoses Diagnosis Rheumatoid arthritis(714.0) (HCC)- Primary Rheumatoid arthritis documented in this encounter Care Teams Chancery Clerk Relationship Specialty Start Date End Date Tomas Hyman MD [address] [facility] [address] [place] [address] PCP - General Family Medicine 12/31/13 05/09/18 Isidro Heredia MD Rheumatology 02/09/11 documented as of this encounter
--- OUTSIDE RECORDS SUMMARY | 2024-05-03 04:13 | XMS_ITS | Encounter Summary ---
Author Organization [facility] Address [address] [facility] [place] [address] Care Team Providers Care Laborer Yard Name Role Phone Isidro Heredia MD Unavailable [phone] Tomas Hyman MD Primary Care Provider [phone] Reason for Visit * Reason Comments Rheumatoid Arthritis * Consult, Test & Treat (Routine) - Closed Specialty Diagnoses / Procedures Referred By Lawrence t Referred To Contact Diagnoses Rheumatoid arthritis(714.0) (HCC) Procedures [place] OFFICE VISIT DURING HOURS Nolberto Nicole MD [address] [place] [address] Isidro Heredia MD [address] [place] [address] Referral ID Status Reason Start Date Expiration Date Visits Re quested Visits Authorized [id number] Closed 09/30/2013 03/28/2014 1 6 Encounter Details Date Type Department Care Team (Late st Contact Info) Description 01/14/2014 2:30 PM CDT Office Visit [facility] - Rheumatology [address] [place] [address] Isidro Heredia MD [address] [place] [address] Rheumatoid arthritis (HCC) (Primary Dx); [...] Time Taken Comments Blood Pressure 156/90 01/14/2014 2:49 PM CDT Pulse 115 01/14/2014 2:49 PM CDT Temperature - - Respiratory Rate - - Oxygen Saturation - - Inhaled Oxygen Concentration - - Weight 119.3 kg (263 lb) 01/14/2014 2:49 PM CDT Height - - Body Mass Index 37.74 01/14/2014 2:31 PM CDT documented in this encounter Progress Notes * Isidro Heredia MD - 01/14/2014 3:11 PM CDT Subjective: Chalino Deng 53 y.o. male is here for Chief Complaint Patient presents with ??? Rheumatoid Arthritis HPI: On mtx actemra pred 10 mg bid percocet And skelaxin for ra a and chronic pain Pain Level 9/10 Am stiffness 1 hr Global 9/10 Fatigue yes Medication Side Effects no Current Outpatient Prescriptions on File Prior to Visit Medication Sig Dispense Refill ??? oxyCODONE-acetaminophen (PERCOCET) 5-325 MG tablet Take 1 Tab by mouth every 6 hours as needed for Pain. 120 Tab 0 ??? Magnesium Citrate 100 MG TABS Take [...] PO) Take by mouth once daily. ??? Izrjwwkaamz-Bxxctvdjj-Idu C-Mn (GLUCOSAMINE CHONDR 1500 COMPLX PO) Take [...] genl heart lungs Objective: General Appearance Physical Exam:wd wn wm in nad BP 156/90 Pulse 115 Wt 119.296 kg (263 lb) Head: perrla, eyes no irritation, vision [...] 8/SJ, 0/muscle tenderness or weakness LUE: 13/TJ, 8/SJ, 0/muscle tenderness or weakness RLE: 1/TJ, 1/SJ, 0/muscle tenderness or weakness LLE: 1/TJ, 1/SJ, 0/muscle tenderness or weakness Assessment: Encounter Diagnoses Name Primary? Rheumatoid arthritis Yes ??? Chronic pain syndrome poorly controlled ra and chronic pain same meds Plan: Plan Orders Placed This Encounter ??? esomeprazole (NEXIUM) 40 MG capsule Sig: Take 1 Cap by mouth daily before breakfast. Dispense: 90 Cap Refill: 3 Letter he can not work unless he improves Follow up in office in 4 weeks documented in this encounter Plan of Treatment Upcoming Encounters Date Type Department Care Team (Late st Contact Info) Description 06/03/2024 1:00 PM INGREDIENT MIXER Appointment [facility] - Rheumatology [address] [place] [address] 06/03/2024 2:00 PM INGREDIENT MIXER Office Visit [facility] - Rheumatology [address] [place] [address] Gloria Smith MD [address] [place] [phone] documented as of this encounter Visit Diagnoses Diagnosis Rheumatoid arthritis(714.0) (HCC)- Primary Rheumatoid arthritis Chronic pain syndrome documented in this encounter Care Teams Laborer Yard Relationship Specialty Start Date End Date Tomas Hyman MD [address] [place] [address] PCP - General Family Medicine 12/31/13 05/09/18 Isidro Heredia MD Rheumatology 02/09/11 documented as of this encounter
--- OUTSIDE RECORDS SUMMARY | 2024-05-03 04:13 | XMS_ITS | Encounter Summary ---
Author Organization [facility] Address [address] [facility] [place] [address] Care Team Providers Care Health Record Technician Name Role Phone Isidro Heredia MD Unavailable Tomas Hyman MD Primary Care Provider Reason for Visit * Reason Comments Rheumatoid Arthritis * Evaluate & Treat (Routine) - Closed Specialty Diagnoses / Procedures Referred By Lawrence shah Referred To Contact Diagnoses Rheumatoid arthritis(714.0) (HCC) Procedures ME OFFICE VISIT DURING HOURS Tomas Hyman MD [address] [facility] [address] [place] [address] Isidro Heredia MD [address] [place] [address] Referral ID Status Reason Start Date Expiration Date Visits Re quested Visits Authorized [id number] Closed 02/10/2014 02/10/2015 6 6 Encounter Details Date Type Department Care Team (Late st Contact Info) Description 03/12/2014 1:45 PM CURBING STONECUTTER Office Visit [facility] - Rheumatology [address] [place] [address] Isidro Heredia MD [address] [place] [address] Chronic pain syndrome (Primary Dx); Rheumatoid arthritis (HCC); Chronic LBP Social History Tobacco Use Types Packs/Day Years Used Date Smoking Tobacco: Never Smokeless Tobacco: Never Alcohol Use Standard Drinks/Week Comments No 0 (1 standard drink = 0.6 oz pur e alcohol) Sex and Gender Information Value Date Recorded Sex Assigned at Not on file Gender Identity Not on file Sexual Orientation Not on file documented as of this encounter Progress Notes * Rea Hagan MA - 03/12/2014 3:03 PM CST Referral given to eye doctor Dr Pena ING STONECUTTER * Isidro Heredia MD - 03/12/2014 2:38 PM CST Subjective: Chalino Deng 53 y.o. male is here for Chief Complaint Patient presents with ??? Rheumatoid Arthritis On actemra naprosyn for ra and Percocet for chronic opain neurontin was added HPI: Good results with epid Ist injection Lumbar sp back better Has not worked 1 mo Cervical collar helps his neck Pain Level 7/10 hands knees ankles Back Am stiffness Global 8/10 Fatigue yes Medication Side Effects no Current Outpatient Prescriptions on File Prior to Visit Medication Sig Dispense Refill ??? gabapentin (NEURONTIN) 300 MG capsule Take 300 mg by mouth 3 times daily. ??? methotrexate 2.5 MG tablet TAKE 6 [...] PO) Take by mouth once daily. ??? Vjrxpoiedtm-Kyrlrsoyy-Pkn C-Mn (GLUCOSAMINE CHONDR 1500 COMPLX PO) Take [...] cough, eye irritation Systems reviewed genl heart lung Objective: General Appearance Physical Exam: There were [...] weakness Assessment: Encounter Diagnoses Name Primary? Chronic pain syndrome Yes ??? Rheumatoid arthritis ??? Chronic LBP poorly controlled ra chronic pain and chronic lbp same meds Plan: Plan Orders Placed This Encounter ??? AMB REFERRAL TO OPHTHALMOLOGY Standing Status: Future Number of Occurrences: Standing Expiration Date: 03/12/2015 Referral Type: Evaluate & Treat Referral Reason: Specialty Services Required Referred to Provider: Lupis Pena MD Number of Visits Requested: 3 ??? oxyCODONE-acetaminophen (PERCOCET) 5-325 MG tablet Sig: Take 1 Tab by mouth every 6 hours as needed for Pain. Dispense: 120 Tab Refill: 0 Follow up in office in 4 weeks ING STONECUTTER documented in this encounter Plan of Treatment Upcoming Encounters Date Type Department Care Team (Late st Contact Info) Description 06/03/2024 1:00 PM CURBING STONECUTTER Appointment [facility] - Rheumatology [address] [place] [address] 06/03/2024 2:00 PM CURBING STONECUTTER Office Visit [facility] - Rheumatology [address] [place] [address] Gloria Smith MD [address] [place] [phone] documented as of this encounter Visit Diagnoses Diagnosis Chronic pain syndrome- Primary Rheumatoid arthritis(714.0) (HCC) Rheumatoid arthritis Chronic LBP Lumbago documented in this encounter Care Teams Health Record Technician Relationship Specialty Start Date End Date Tomas Hyman MD [address] [facility] [address] [place] [address] PCP - General Family Medicine 12/31/13 05/09/18 Isidro Heredia MD Rheumatology 02/09/11 documented as of this encounter
--- OUTSIDE RECORDS SUMMARY | 2024-05-03 04:13 | XMS_ITS | Encounter Summary ---
Author Organization [facility] Address [address] [place] [address] Care Team Providers Care Casino Cage Supervisor Name Role Phone Isidro Heredia MD Unavailable [phone] Tomas Hyman MD Primary Care Provider [phone] Reason for Visit * Reason Onset Date Comments Follow-up 01/05/2014 Encounter Details Date Type Department Care Team (Late st Contact Info) Description 01/05/2014 Telephone [facility] - Rheumatology [address] [place] [address] Isidro Heredia MD [address] [place] [address] Follow-up Social History Tobacco Use Types [...] Telephone Encounter - Rea Hagan MA - 01/09/2014 3:15 PM CDT Lmr to call office. When he calls back, ok to find me. Thanks! * Telephone Encounter - Rea Hagan MA - 01/06/2014 11:57 AM CDT Returned pt. Lmr to call office * Telephone Encounter - Erika Julien - 01/05/2014 1:06 PM CDT Pt needs to talk to July about his work slip and results from the mri documented in this encounter Plan of Treatment Upcoming Encounters Date Type Department Care Team (Late st Contact Info) Description 06/03/2024 1:00 PM BUSINESS STRATEGY MANAGER Appointment [facility] - Rheumatology [address] [place] [address] 06/03/2024 2:00 PM BUSINESS STRATEGY MANAGER Office Visit [facility] - Rheumatology [address] [place] [address] Gloria Smith MD [address] [place] [phone] documented as of this encounter Visit Diagnoses Not on filedocumented in this encounter Care Teams Casino Cage Supervisor Relationship Specialty Start Date End Date Tomas Hyman MD [address] [facility] [address] [place] [address] PCP - General Family Medicine 12/31/13 05/09/18 Isidro Heredia MD Rheumatology 02/09/11 documented as of this encounter
--- OUTSIDE RECORDS SUMMARY | 2024-05-03 04:13 | XMS_ITS | Encounter Summary ---
Author Organization [facility] Address [address] [facility] [place] [address] Care Team Providers Care Chief Business Development Officer Name Role Phone Isidro Heredia MD Unavailable [phone] Tomas Hyman MD Primary Care Provider [phone] Encounter Details Date Type Department Care Team (Late st Contact Info) Description 01/14/2014 Orders Only [facility] Medical [facility] - Rheumatology [address] [place] [address] [phone] Isidro Heredia MD [address] [place] [phone] Rheumatoid arthritis (HCC) Social History Tobacco [...] Progress Notes * Rea Hagan MA - 01/20/2014 11:19 AM CDTQuick Note: Sent lab results to pt my chart * Isidro Heredia MD - 01/18/2014 9:05 AM CDTQuick Note: mtx ok bs nl 102 k high recheck next ov documented in this encounter Miscellaneous Notes * Addendum Note - Yamileth Rodríguez MA - 01/14/2014 3:06 PM CDTAddended by: YAMILETH RODRÍGUEZ on: 01/14/2014 03:06 PM Modules accepted: Orders documented in this encounter Plan of Treatment Upcoming Encounters Date Type Department Care Team (Late st Contact Info) Description 06/03/2024 1:00 PM DELIVERY AGENT Appointment [facility] - Rheumatology [address] [place] [address] 06/03/2024 2:00 PM DELIVERY AGENT Office Visit [facility] - Rheumatology [address] [place] [address] Gloria Smith MD [address] [place] [phone] documented as of this encounter Procedures Procedure Name Priority Date/Time Associated Diagnosis Comments ERYTHROCYTE SEDIMENTATION RATE Routine 01/14/2014 4:00 PM CDT Rheumatoid Arthritis (Hcc) CBC W AUTO DIFFERENTIAL Routine 01/14/2014 4:00 PM CDT Rheumatoid Arthritis (Hcc) COMPREHENSIVE METABOLIC PANEL Routine 01/14/2014 4:00 PM CDT Rheumatoid Arthritis (Hcc) documented in this encounter Results * (ABNORMAL) COMPREHENSIVE METABOLIC PANEL (01/14/2014 4:00 PM CDT) Glucose 102(H) 65 - 99 mg/dL [facility] INSURANCE BILL BUN 22 6 - 24 mg/dL [facility] INSURANCE BILL Creatinine 0.86 0.76 - 1.27 mg/dL [facility] INSURANCE BILL eGFR by MDRD 100 >59 mL/min/1.7 3 [facility] INSURANCE BILL eGFR by MDRD 116 >59 mL/min/1.7 3 [facility] INSURANCE BILL BUN/Creatinine Ratio 26(H) 9 - 20 [facility] INSURANCE BILL Sodium 137 134 - 144 mmol/L [facility] INSURANCE BILL Potassium 5.4(H) 3.5 - 5.2 mmol/L [facility] INSURANCE BILL Chloride 100 97 - 108 mmol/L [facility] INSURANCE BILL CO2 19 18 - 29 mmol/L [facility] INSURANCE BILL Calcium 8.5(L) 8.7 - 10.2 mg/dL [facility] INSURANCE BILL Protein Total 6.6 6.0 - 8.5 g/dL [facility] INSURANCE BILL Albumin 4.2 3.5 - 5.5 g/dL [facility] INSURANCE BILL Globulin Total 2.4 1.5 - 4.5 g/dL [facility] INSURANCE BILL Albumin/Globulin Ratio 1.8 1.1 - 2.5 [facility] INSURANCE BILL Bilirubin Total 0.6 0.0 - 1.2 mg/dL [facility] INSURANCE BILL Alkaline Phosphatase 52 39 - 117 IU/L [facility] INSURANCE BILL AST 26 0 - 40 IU/L [facility] INSURANCE BILL ALT 27 0 - 44 IU/L [facility] INSURANCE BILL Blood specimen (specimen) BLOOD SPECIMEN / Unknown 01/14/2014 4:00 PM CDT 01/14/2014 6:09 PM CDT Narrative Resulting Agency Comment [facility] ??[facility] [phone] Isidro Heredia MD LAB - CHEMISTRY ORD ERABLES [facility] INSURANCE BILL * SED RATE WESTERGREN (01/14/2014 4:00 PM CDT) Erythrocyte Sedimentation Rate Westergren 7 0 - 30 mm/hr [facility] INSURANCE BILL Blood specimen (specimen) BLOOD SPECIMEN / Unknown 01/14/2014 4:00 PM CDT 01/14/2014 6:09 PM CDT Narrative Resulting Agency Comment [facility] ??[facility] [phone] Isidro Heredia MD LAB - HEMATOLOGY OR DERABLES [facility] INSURANCE BILL * CBC W AUTO DIFFERENTIAL (01/14/2014 4:00 PM CDT) WBC 9.0 3.4 - 10.8 x10E3/uL [facility] INSURANCE BILL RBC 4.36 4.14 - 5.80 x10E6/uL [facility] INSURANCE BILL Hemoglobin 13.5 12.6 - 17.7 g/dL [facility] INSURANCE BILL Hematocrit 39.6 37.5 - 51.0 % [facility] INSURANCE BILL MCV 91 79 - 97 fL [facility] INSURANCE BILL MCH 31.0 26.6 - 33.0 pg [facility] INSURANCE BILL MCHC 34.1 31.5 - 35.7 g/dL [facility] INSURANCE BILL RDW 14.6 12.3 - 15.4 % [facility] INSURANCE BILL Platelet Count 181 150 - 379 x10E3/uL [facility] INSURANCE BILL Granulocytes % 74 % [facility] INSURANCE BILL Lymphocytes % 19 % [facility]URANCE B[facility] Monocytes % 5 % [facility] INSURANCE BILL Eosinophils % 2 % [facility]URANCE BILL Basophils % 0 % [facility] INSURANCE BILL Immature Cells NOT NEEDED [facility] INSURANCE BILL Comment:Ancillary determined the test is not needed Granulocytes Absolute 6.7 1.4 - 7.0 x10E3/uL [facility] INSURANCE BILL [...] Blood specimen (specimen) BLOOD SPECIMEN / Unknown 01/14/2014 4:00 PM CDT 01/14/2014 6:09 PM CDT Narrative Resulting Agency Comment [facility] [address] ??[facility] [phone] Isidro Heredia MD LAB - HEMATOLOGY OR DERABLES [facility] INSURANCE BILL documented in this encounter Visit Diagnoses Diagnosis Rheumatoid arthritis(714.0) (HCC)- Primary Rheumatoid arthritis documented in this encounter Care Teams Chief Business Development Officer Relationship Specialty Start Date End Date Tomas Hyman MD [address] [place] [address] PCP - General Family Medicine 12/31/13 05/09/18 Isdiro Heredia MD Rheumatology 02/09/11 documented as of this encounter
--- OUTSIDE RECORDS SUMMARY | 2024-05-03 04:13 | XMS_ITS | Encounter Summary ---
Author Organization [facility] Address [address] [facility] [place] [address] Care Team Providers Care Certified Drug Counselor Name Role Phone Nolberto Nicole MD Primary Care Provider [phone] Isidro Heredia MD Unavailable [phone] Reason for Visit * Reason Onset Date Comments Rheumatoid Arthritis 12/30/2013 Pain Back 12/30/2013 Lower Extremity Problem 12/30/2013 Encounter Details Date Type Department Care Team (Late st Contact Info) Description 12/30/2013 Telephone [facility] - Rheumatology [address] [place] [address] Isidro Heredia MD [address] [place] [address] Rheumatoid Arthritis; Pain Back; Lower Extremity Problem Social History Tobacco Use Types Packs/Day Years [...] Telephone Encounter - Rea Hagan MA - 12/30/2013 3:44 PM CDT This is noted * Telephone Encounter - Hammad Rodriguez - 12/30/2013 3:09 PM CDT Called pt & gave him the message. He agreed to come in tomorrow, 12/31/13 at 11:00am. I have placed him on the schedule accordingly. * Telephone Encounter - Rea Hagan MA - 12/30/2013 2:58 PM CDT Please call pt and let him know that he can come in tomorrow either at 11:00 or 1:45. Let me know. Thanks! * Telephone Encounter - Hammad Rodriguez - 12/30/2013 2:40 PM CDT Pt wants dr to know that his RA is acting up (in more pain & swollen all over). Unable to go towork today or tomorrow. He has an appt 01/14/14, but he wants to know if he can be seen tomorrow. Please advise. documented in this encounter Plan of Treatment Upcoming Encounters Date Type Department Care Team (Late st Contact Info) Description 06/03/2024 1:00 PM HEALTHCARE MANAGEMENT Appointment [facility] - Rheumatology [address] [place] [address] 06/03/2024 2:00 PM HEALTHCARE MANAGEMENT Office Visit [facility] - Rheumatology [address] [place] [address] Gloria Smith MD [address] [place] [phone] documented as of this encounter Visit Diagnoses Not on filedocumented in this encounter Care Teams Certified Drug Counselor Relationship Specialty Start Date End Date Nolberto Nicole MD PCP - General 07/21/08 12/30/13 Isidro Heredia MD Rheumatology 02/09/11 documented as of this encounter
--- OUTSIDE RECORDS SUMMARY | 2024-05-03 04:13 | XMS_ITS | Encounter Summary ---
Author Organization [facility] Address [address] [place] [address] Care Team Providers Care Freight Car Builder Name Role Phone Nolberto Nicole MD Primary Care Provider [phone] Isidro Heredia MD Unavailable [phone] Reason for Visit * Treatment (Routine) - Closed Specialty Diagnoses / Procedures Referred By Lawrence shah Referred To Contact Infusion Therapy Nurse Diagnoses Rheumatoid arthritis(714.0) ([facility]) Procedures [place] INJECTION TOCILIZUMAB 1 MG Isidro Heredia MD [address] [place] [address] Referral ID Status Reason Start Date Expiration Date Visits Re quested Visits Authorized [id number] Closed 05/01/2013 04/29/2014 1 12 Encounter Details Date Type Department Care Team (Late st Contact Info) Description 11/12/2013 3:33 PM CDT - 11/12/2013 11:59 PM CDT Hospital Encounter [facility] - Rheumatology [address] [place] [address] Isidro Heredia MD [address] [place] [address] Discharge Disposition: Home or Self [...] Sign Reading Time Taken Comments Blood Pressure 136/91 11/12/2013 4:29 PM CDT Pulse 126 11/12/2013 4:29 PM CDT Temperature 36.8 ??C (98.2 ??F) 11/12/2013 4:29 PM CD T Respiratory Rate 18 11/12/2013 4:29 PM CDT Oxygen Saturation - - Inhaled Oxygen Concentration - - Weight - - Height 177.8 cm (5' 10 ) 11/12/2013 4:30 PM CDT Body Mass Index - - documented in this encounter Discharge Instructions * Discharge Instructions* Carlos Foreman RN - 11/12/2013 5:48 PM CDT [place] Rheumatology Post Infusion instructions You have received [...] rash or breathing problems please call your [facility] Rheumatology physician for further instructions. While most problems that occur around the time of an infusion are very mild and not dangerous, they should not be ignored. Sunday through Sunday- call the office at [phone] After hours or on the weekend call the exchange at [phone] If you have had lab work done [...] chosen [facility] as your provider. Carlos Foreman RN documented in this encounter Medications at Time of Discharge Medication Sig Dispensed Refills Start Date End Date Altcuojrqaj-Kyoaaoaai-Jo t C-Mn (GLUCOSAMINE CHONDR 1500 COMPLX PO) [...] 5-325 MG tabletIndications:Rheuma toid arthritis(714.0) ([facility]) Take 1 Tab by mouth every 6 [...] st Contact Info) Description 06/03/2024 1:00 PM CONCIERGE Appointment [facility] - Rheumatology [address] [place] [address] [phone] 06/03/2024 2:00 PM CONCIERGE Office Visit [facility] - Rheumatology [address] [place] [address] Gloria Smith MD [address] [place] [phone] documented as of this encounter Visit Diagnoses Diagnosis Rheumatoid arthritis(714.0) ([facility])- Primary Rheumatoid arthritis documented in this encounter Administered Medications Inactive Administered Medications - up to 3 most recent administrations Medication Order MAR Action Action Date Dose Rate Site tocilizumab (ACTEMRA) 800 mg in 0.9% NaCl IVPB 800 mg, at 100 mL/hr, Intravenous, ONCE, 1 dose, On Sun11/12/13 at 1615 $ Given 11/12/2013 4:30 PM CDT 800 mg 100 mL/hr documented in this encounter Care Teams Freight Car Builder Relationship Specialty Start Date End Date Nolberto Nicole MD PCP - General 07/21/08 12/30/13 Isidro Heredia MD Rheumatology 02/09/11 documented as of this encounter
--- OUTSIDE RECORDS SUMMARY | 2024-05-03 04:13 | XMS_ITS | Encounter Summary ---
Author Organization [facility] Address [address] [place] [address] Care Team Providers Care Health Communications Specialist Name Role Phone Isidro Heredia MD Unavailable [phone] Tomas Hyman MD Primary Care Provider [phone] Reason for Visit * Reason Comments Pain Back Encounter Details Date Type Department Care Team (Latest Contact Info) Description 12/31/2013 11:00 AM CDT Procedure visit [facility] - Family Medicine [address] [place] [address] Lumbar radiculopathy Social History Tobacco Use Types [...] Procedure Notes * Isidro Heredia MD - 01/06/2014 2:01 PM CDTAssociated Order(s): XR LUMBAR SPINE 2 OR 3 VW Xrays Lumbar spine: Loss of lordotic curve. No other significant abnormalities documented in this encounter Plan of Treatment Upcoming Encounters Date Type Department Care Team (Late st Contact Info) Description 06/03/2024 1:00 PM SHEARER SCREEN MEASURER AND TRIMMER Appointment [facility] - Rheumatology [address] [place] [address] 06/03/2024 2:00 PM SHEARER SCREEN MEASURER AND TRIMMER Office Visit [facility] Medical [facility] - Rheumatology [address] [place] [address] Gloria Smith MD [address] [place] [address] documented as of this encounter Procedures Procedure Name Priority Date/Time Associated Diagnosis Comments XR LUMBAR SPINE 2 OR 3VW Routine 01/06/2014 2:02 PM CDT Lumbar radiculopathy documented in this encounter Results * XR LUMBAR SPINE 2 OR 3 VW (01/06/2014 2:02 PM CDT) Anatomical Region Laterality Modality Spine Other Narrative 01/06/2014 2:02 PM CDT Isidro Heredia MD ? 01/06/2014 ??2:02 PM Xrays Lumbar spine: Loss of lordotic curve. No other significant abnormalities Isidro Heredia MD DIAGNOSTIC IMAGING ORDERABLES documented in this encounter Visit Diagnoses Diagnosis Lumbar radiculopathy- Primary Thoracic or lumbosacral neuritis or radiculitis, unspecified documented in this encounter Care Teams Health Communications Specialist Relationship Specialty Start Date End Date Tomas Hyman MD [address] [facility] [address] [place] [address] PCP - General Family Medicine 12/31/13 05/09/18 Isidro Heredia MD Rheumatology 02/09/11 documented as of this encounter
--- OUTSIDE RECORDS SUMMARY | 2024-05-03 04:13 | XMS_ITS | Encounter Summary ---
Author Organization [facility] Address [address] [place] [address] Care Team Providers Care Molding Process Technician Name Role Phone Nolberto Nicole MD Primary Care Provider [phone] Isidro Heredia MD Unavailable [phone] Reason for Visit * Treatment (Routine) - Closed Specialty Diagnoses / Procedures Referred By Lawrence shah Referred To Contact Infusion Therapy Nurse Diagnoses Rheumatoid arthritis(714.0) ([facility]) Procedures [place] INJECTION TOCILIZUMAB 1 MG Isidro Heredia MD [address] [place] [address] Referral ID Status Reason Start Date Expiration Date Visits Re quested Visits Authorized [id number] Closed 05/01/2013 04/29/2014 1 12 Encounter Details Date Type Department Care Team (Late st Contact Info) Description 10/15/2013 11:00 AM CDT - 10/15/2013 11:59 PM T Hospital Encounter [facility] - Rheumatology [address] [place] [address] Isidro Heredia MD [address] [place] [address] Discharge Disposition: Home or Self [...] Sign Reading Time Taken Comments Blood Pressure 158/98 10/15/2013 11:22 AM CDT Pulse 115 10/15/2013 11:22 AM CDT Temperature 36.9 ??C (98.4 ??F) 10/15/2013 11:22 AM C DT Respiratory Rate 16 10/15/2013 11:22 AM CDT Oxygen Saturation - - Inhaled Oxygen Concentration - - Weight 129.3 kg (285 lb) 10/15/2013 11:22 AM CDT Height 177.8 cm (5' 10 ) 10/15/2013 11:22 AM CDT Body Mass Index 40.89 10/15/2013 11:22 AM CDT documented in this encounter Discharge Instructions * Discharge Instructions* Manisha Sierra RN - 10/15/2013 11:17 AM CDT [place] Rheumatology Post Infusion instructions You have [...] through Sunday 9-5 call the office at [phone] After hours or on the weekend call the exchange at [phone] If you have had lab work done [...] chosen [facility] as your provider. Manisha Sierra RN documented in this encounter Medications at Time of Discharge Medication Sig Dispensed Refills Start Date End Date Bnziyxruwho-Zborevqah-Ds t C-Mn (GLUCOSAMINE CHONDR 1500 COMPLX PO) Take 1 Tab by mouth once daily Multiple Vitamin (MULTI-VITAMIN PO) Take 1 Tab by mouth once daily ZYRTEC 10 MG TABS Take 1 (one) tablet by mouth once daily Seasonal (nov diclofenac sodium (VOLTAREN) 1 % gel Apply 1 g to affected area 4 times daily. 1 4 08/30/2009 11/12/2013 esomeprazole (NEXIUM) 40 MG capsule Take 1 Cap by mouth daily before breakfast. 90 Cap 3 10/14/2012 01/14/2014 fish oil/omega-3 fatty acids (FISH OIL) 1000 MG capsule Take 1,000 mg by mouth 2 times daily. 01/07/2015 metaxalone (SKELAXIN) 800 MG tablet Take 1 Tab by mouth 3 times daily. 270 Tab 1 03/11/2012 11/12/2013 methotrexate 2.5 MG tablet Take 6 Tabs by mouth every 7 days. 72 Tab 3 03/17/2013 01/25/2014 naproxen (NAPROSYN) 500 MG tablet Take 1 Tab by mouth 2 times daily. 180 Tab 3 08/19/2012 06/08/2014 niacin, Immediate Release, 500 MG tablet Take 500 mg by mouth at bedtime. 01/14/2014 oxyCODONE-acetaminophen (PERCOCET) 5-325 MG tabletIndications:Rheuma toid arthritis(714.0) ([facility]) Take 1 Tab by mouth every 6 hours as needed for Pain. 120 Tab 0 09/04/2013 11/12/2013 predniSONE (DELTASONE) 10 MG tablet TAKE 1 TABLET BY MOUTH 2 TIMES A DAY 180 Tab 3 07/17/2013 11/05/2014 risedronate Sodium (ACTONEL) 150 MG tablet Take 1 Tab by mouth every 30 days. 3 Tab 3 05/12/2013 06/08/2014 rosuvastatin (CRESTOR) 5 MG tablet Take 1 Tab by mouth at bedtime. 30 Tab 11 06/10/2013 11/12/2013 tamsulosin CR 24hr (FLOMAX) 0.4 MG capsule [...] Progress Notes * Manisha Sierra, RN - 10/15/2013 12:12 PM CDT JOSE Deng [id number] 10/15/2013 Diagnosis: Rheumatoid arthritis [714.0]. Patient questionnaire results Health Assessment Questionnaire MHAQ: Pain: Global: Rapid 3: Sleep: GI: Fatigue: BP 158/98 Pulse 115 Temp 98.4 ??F Resp 16 Wt 129.275 kg (285 lb) BMI 40.89 kg/m2 @ MEDICATIONS FOR CURRENT ENCOUNTER: ?? [...] st Contact Info) Description 06/03/2024 1:00 PM NON DESTRUCTIVE TESTING ENGINEER Appointment [facility] - Rheumatology [address] [place] [address] 06/03/2024 2:00 PM NON DESTRUCTIVE TESTING ENGINEER Office Visit [facility] - Rheumatology [address] [place] [address] Gloria Smith MD [address] [place] [phone] documented as of this encounter Visit Diagnoses Diagnosis Rheumatoid arthritis(714.0) ([facility])- Primary Rheumatoid arthritis documented in this encounter Administered Medications Inactive Administered Medications - up to 3 most recent administrations Medication Order MAR Action Action Date Dose Rate Site Tocilizumab 800 mg in 0.9% NaCl IVPB 800 mg, at 100 mL/hr, Intravenous, ONCE, 1 dose, On Sun10/15/13 at 1115 $ Given 10/15/2013 11:20 AM CDT 800 mg 100 mL/ hr documented in this encounter Care Teams Molding Process Technician Relationship Specialty Start Date End Date Nolberto Nicole MD PCP - General 07/21/08 12/30/13 Isidro Heredia MD Rheumatology 02/09/11 documented as of this encounter
--- OUTSIDE RECORDS SUMMARY | 2024-05-03 04:13 | XMS_ITS | Encounter Summary ---
Author Organization [facility] Address [address] [place] [address] Care Team Providers Care Ankle Patch Molder Name Role Phone Isidro Heredia MD Unavailable [phone] Tomas Hyman MD Primary Care Provider [phone] Reason for Visit * Oncology Prior Authorization - Closed Specialty Diagnoses / Procedures Referred By Contsarahi t Referred To Contact Infusion Therapy Nurse Diagnoses Rheumatoid arthritis(714.0) ([facility]) Procedures [place] INJECTION TOCILIZUMAB 1 MG Isidro Heredia MD [address] [place] [address] [address] Referral ID Status Reason Start Date Expiration Date Visits Re quested Visits Authorized [id number] Closed 05/01/2013 04/29/2014 1 12 Encounter Details Date Type Department Care Team (Late st Contact Info) Description 02/12/2014 1:44 PM CDT - 02/12/2014 11:59 PM CDT Hospital Encounter [facility] Medical [facility] - Rheumatology [address] [place] [address] Isidro Heredia MD [address] [facility] [place] [place] [address] Discharge Disposition: Home or [...] Time Taken Comments Blood Pressure 142/98 02/12/2014 3:08 PM CDT Pulse 80 02/12/2014 3:08 PM CDT Temperature 37.1 ??C (98.8 ??F) 02/12/2014 3:08 PM CD T Respiratory Rate 18 02/12/2014 3:08 PM CDT Oxygen Saturation - - Inhaled Oxygen Concentration - - Weight 117 kg (258 lb) 02/12/2014 3:08 PM CDT Height 177.8 cm (5' 10 ) 02/12/2014 3:08 PM CDT Body Mass Index 37.02 02/12/2014 3:08 PM CDT documented in this encounter Discharge Instructions * Discharge Instructions* Carlos Foreman RN - 02/12/2014 4:03 PM CDT [place] Rheumatology Post Infusion instructions You have received [...] Sunday through 01-02 call the office at [phone] After hours or on the weekend call the exchange at [phone] If you have had lab work done [...] [facility] as your provider. Carlos Foreman RN documented in this encounter Medications at Time of Discharge Medication Sig Dispensed Refills Start Date End Date Jacxeksxypa-Uxyzdagrb-Fk t C-Mn (GLUCOSAMINE CHONDR 1500 COMPLX PO) [...] 0.9% NaCl 0.9 % 100 mLIndications:Rheumatoid arthritis(714.0) ([facility]) Pt to receive IV infusion 800mg Actemra/100cc0.9%norm al saline, per nasir Avila's office practice of Actemra 8mg/kg over 60 minutes and the Actemra schedule; first dose, then every 4 weeks thereafter, unless further orders received from . Exp 09/04/2014 09/04/2013 09/04/2014 documented as of this encounter Progress Notes * Carlos Foreman RN - 02/12/2014 3:15 PM CDT JOSE Deng [id number] 02/12/2014 Diagnosis: Rheumatoid arthritis [714.0]. Patient questionnaire results Health Assessment Questionnaire BP 142/98 Pulse 80 Temp(Src) 98.8 ??F Resp 18 Wt 117.028 kg (258 lb) BMI 37.02 [...] st Contact Info) Description 06/03/2024 1:00 PM SURVEYOR GEODETIC Appointment [facility] - Rheumatology [address] [place] [address] 06/03/2024 2:00 PM SURVEYOR GEODETIC Office Visit [facility] - Rheumatology [address] [place] [address], [place] [address] Gloria Smith MD [address] [place] [phone] documented as of this encounter Visit Diagnoses Diagnosis Rheumatoid arthritis(714.0) ([facility]) Rheumatoid arthritis documented in this encounter Administered Medications Inactive Administered Medications - up to 3 most recent administrations Medication Order MAR Action Action Date Dose Rate Site Tocilizumab 800 mg in 0.9% NaCl IVPB 800 mg, at 100 mL/hr, Intravenous, ONCE, 1 dose, On Gabriela 02/12/14 at 0945, 2 vials used of Actemra 400MG [facility] 05493-391-50 with 0 WASTE $ Given 02/12/2014 3:10 PM CDT 800 mg 100 m L/hr documented in this encounter Care Teams Ankle Patch Molder Relationship Specialty Start Date End Date Tomas Hyman MD [address] [facility] [address] [place] [address] PCP - General Family Medicine 12/31/13 05/09/18 Isidro Heredia MD Rheumatology 02/09/11 documented as of this encounter
--- OUTSIDE RECORDS SUMMARY | 2024-05-03 04:13 | XMS_ITS | Encounter Summary ---
Author Organization [facility] Address [address] [place] [address] Care Team Providers Care Import/Export Administrator Name Role Phone Isidro Heredia MD Unavailable [phone] Tomas Hyman MD Primary Care Provider [phone] Reason for Visit * Reason Comments Refill Request Encounter Details Date Type Department Care Team (Late Contact Info) Description 01/25/2014 Refill [facility] - Rheumatology [address] [place] [address] Isidro Heredia MD [address] [place] [address] Refill Request Social History Tobacco Use [...] (Late Contact Info) Description 06/03/2024 1:00 PM CENTRAL OFFICE WORKER Appointment [facility] - Rheumatology [address] [place] [address] 06/03/2024 2:00 PM CENTRAL OFFICE WORKER Office Visit [facility] Rheumatology [address] [place] [address] Gloria Smith MD [address] [place] [address], [place] [address] documented as of this encounter Visit Diagnoses Not on filedocumented in this encounter Care Teams Import/Export Administrator Relationship Specialty Start Date End Date Tomas Hyman MD [address] [place] [address] PCP - General Family Medicine 12/31/13 05/09/18 Isidro Heredia MD Rheumatology 02/09/11 documented as of this encounter
--- OUTSIDE RECORDS SUMMARY | 2024-05-03 04:13 | XMS_ITS | Encounter Summary ---
Author Organization [facility] Address [address] [facility] [place] [address] Care Team Providers Care Remote Encoding Operations Supervisor Name Role Phone Nolberto Nicole MD Primary Care Provider [phone] Isidro Heredia MD Unavailable [phone] Encounter Details Date Type Department Care Team (Late st Contact Info) Description 11/12/2013 Orders Only [facility] - Rheumatology [address] [place] [address] [phone] Isidro Heredia MD [address] [place] [phone] Rheumatoid arthritis (HCC) Social History Tobacco [...] as of this encounter Progress Notes * Yamlieth Rodríguez MA - 11/19/2013 11:56 AM CDTQuick Note: Letter mailed to patient regarding lab results. * Isidro Heredia MD - 11/16/2013 4:44 PM CDTQuick Note: mtx ok bs 156 sl nc * Rea Hagan MA - 11/12/2013 5:00 PM CDT Pt here today for Actemera infusion. Blood ordered as follow: Cbc. Cmp, sedrate documented in this encounter Plan of Treatment Upcoming Encounters Date Type Department Care Team (Late st Contact Info) Description 06/03/2024 1:00 PM VETERANS CONTACT REPRESENTATIVE Appointment [facility] - Rheumatology [address] [place] [address] 06/03/2024 2:00 PM VETERANS CONTACT REPRESENTATIVE Office Visit [facility] - Rheumatology [address] [place] [address] Gloria Smith MD [address] [place] [phone] documented as of this encounter Procedures Procedure Name Priority Date/Time Associated Diagnosis Comments ERYTHROCYTE SEDIMENTATION RATE Routine 11/12/2013 4:15 PM CDT Rheumatoid Arthritis (Hcc) CBC W AUTO DIFFERENTIAL Routine 11/12/2013 4:15 PM CDT Rheumatoid Arthritis (Hcc) COMPREHENSIVE METABOLIC PANEL Routine 11/12/2013 4:15 PM CDT Rheumatoid Arthritis (Hcc) documented in this encounter Results * (ABNORMAL) COMPREHENSIVE METABOLIC PANEL (11/12/2013 4:15 PM CDT) Glucose 156(H) 65 - 99 mg/dL [facility] INSURANCE BILL BUN 20 6 - 24 mg/dL [facility] INSURANCE BILL Creatinine 0.96 0.76 - 1.27 mg/dL [facility] INSURANCE BILL eGFR by MDRD 91 >59 mL/min/1.7 3 [facility] INSURANCE BILL eGFR by MDRD 105 >59 mL/min/1.7 3 [facility] INSURANCE BILL BUN/Creatinine [...] 8.5 g/dL [facility] INSURANCE BILL Albumin 4.6 3.5 - 5.5 g/dL [facility] INSURANCE BILL Globulin Total 2.1 1.5 - 4.5 g/dL [facility] INSURANCE BILL Albumin/Globulin Ratio 2.2 1.1 - 2.5 [facility] INSURANCE BILL Bilirubin Total 0.6 0.0 - 1.2 mg/dL [facility] INSURANCE BILL Alkaline Phosphatase 64 39 - 117 IU/L [facility] INSURANCE BILL AST 26 0 - 40 IU/L [facility] INSURANCE BILL ALT 36 0 - 44 IU/L [facility] INSURANCE BILL Blood specimen (specimen) BLOOD SPECIMEN / Unknown 11/12/2013 4:15 PM CDT 11/12/2013 6:13 PM CDT Narrative Resulting Agency Comment [facility] ??[facility] [phone] Isidro Heredia MD LAB - CHEMISTRY ORD ERABLES Performing Organization Address City/[facility] Co de Phone Number [facility] INSURANCE BILL * SED RATE WESTERGREN (11/12/2013 4:15 PM CDT) Erythrocyte Sedimentation Rate Westergren 7 0 - 30 mm/hr [facility] INSURANCE BILL Blood specimen (specimen) BLOOD SPECIMEN / Unknown 11/12/2013 4:15 PM CDT 11/12/2013 6:13 PM CDT Narrative Resulting Agency Comment [facility] ??[facility] [phone] Isidro Heredia MD LAB - HEMATOLOGY OR DERABLES Performing Organization Address City/State/[facility] Co de Phone Number [facility] INSURANCE BILL * (ABNORMAL) CBC W AUTO DIFFERENTIAL (11/12/2013 4:15 PM CDT) WBC 7.6 3.4 - 10.8 x10E3/uL [facility] INSURANCE BILL RBC 4.27 4.14 - 5.80 x10E6/uL [facility] INSURANCE BILL Hemoglobin 13.5 12.6 - 17.7 g/dL [facility] INSURANCE BILL Hematocrit 40.2 37.5 - 51.0 % [facility] INSURANCE BILL MCV 94 79 - 97 fL [facility] INSURANCE BILL MCH 31.6 26.6 - 33.0 pg [facility] INSURANCE BILL MCHC 33.6 31.5 - 35.7 g/dL [facility] INSURANCE BILL RDW 14.6 12.3 - 15.4 % [facility] INSURANCE BILL Platelet Count 194 150 - 379 x10E3/uL [facility] INSURANCE BILL Granulocytes % 79(H) 40 - 74 % [facility] INSURANCE BILL Lymphocytes % 17 14 - 46 % [facility] INSURANCE BILL Monocytes % 4 4 - 12 % [facility] INSURANCE BILL Eosinophils % 0 0 - 5 % [facility] INSURANCE BILL Basophils % 0 0 - 3 % [facility] INSURANCE BILL Immature Cells NOT NEEDED [facility] INSURANCE BILL Comment:Ancillary determined the test is not needed Granulocytes Absolute 6.0 1.4 - 7.0 x10E3/uL [facility] INSURANCE BILL Lymphocytes Absolute 1.3 0.7 - 3.1 x10E3/uL [facility] INSURANCE BILL Monocytes Absolute 0.3 0.1 - 0.9 x10E3/uL [facility] INSURANCE BILL Eosinophils Absolute 0.0 0.0 - 0.4 x10E3/uL [facility] INSURANCE BILL Basophils Absolute 0.0 0.0 - 0.2 x10E3/uL [facility] INSURANCE BILL Immature Granulocytes 0 0 - 2 % [facility] INSURANCE BILL Immature Granulocytes Absolute 0.0 0.0 - 0.1 x10E3/uL [facility] INSURANCE BILL nRBC NOT NEEDED [facility] INSURANCE BILL Comment:Ancillary determined the test is not needed Comment Hematology NOT NEEDED [facility] INSURANCE BILL Comment:Ancillary determined the test is not needed Blood specimen (specimen) BLOOD SPECIMEN / Unknown 11/12/2013 4:15 PM CDT 11/12/2013 6:13 PM CDT Narrative Resulting Agency Comment [facility] [address] ??[facility] [phone] Isidro Heredia MD LAB - HEMATOLOGY OR DERABLES [facility] INSURANCE BILL documented in this encounter Visit Diagnoses Diagnosis Rheumatoid arthritis(714.0) (HCC)- Primary Rheumatoid arthritis documented in this encounter Care Teams Remote Encoding Operations Supervisor Relationship Specialty Start Date End Date Nolberto Nicole MD PCP - General 07/21/08 12/30/13 Isidro Heredia MD Rheumatology 02/09/11 documented as of this encounter
--- OUTSIDE RECORDS SUMMARY | 2024-05-03 04:13 | XMS_ITS | Encounter Summary ---
Author Organization [facility] Address [address] [facility] [place] [address] Care Team Providers Care Tank Cleaner Name Role Phone Nolberto Nicole MD Primary Care Provider [phone] Isidro Heredia MD Unavailable [phone] Encounter Details Date Type Department Care Team (Late st Contact Info) Description 12/12/2013 Orders Only [facility] Medical [facility] - Rheumatology [address] [place] [address] Isidro Heredia MD [address] [place] [address] Other and unspecified hyperlipidemia Social History Tobacco Use Types Packs/Day Years [...] Progress Notes * Yamileth Rodríguez MA - 12/15/2013 10:03 AM CDTQuick Note: Letter mailed to patient regarding lab results. * Isidro Heredia MD - 12/14/2013 7:53 PM CDTQuick Note: Chol sl inc 208 documented in this encounter Plan of Treatment Upcoming Encounters Date Type Department Care Team (Late st Contact Info) Description 06/03/2024 1:00 PM DIVE SUPERINTENDENT Appointment [facility] - Rheumatology [address] [place] [address] [phone] 06/03/2024 2:00 PM DIVE SUPERINTENDENT Office Visit [facility] - Rheumatology [address] [place] [address] Gloria Smith MD [address] [place] [phone] documented as of this encounter Procedures Procedure Name Priority Date/Time Associated Diagnosis Comments LIPID PROFILE W TCHOL/HDL Routine 12/12/2013 9:30 AM CDT Other And Unspecified Hyperlipidemia documented in this encounter Results * (ABNORMAL) LIPID PROFILE W TCHOL/HDL (PO REF LAB) (12/12/2013 9:30 AM CDT) Cholesterol 208(H) 100 - 199 mg/dL [facility] INSURANCE BILL Triglycerides 369(H) 0 - 149 mg/dL [facility] INSURANCE BILL HDL Cholesterol 39(L) >39 mg/dL [facility] INSURANCE BILL Comment: According to ATP-III Guidelines, HDL-C >59 mg/dL is considered a negative risk factor for CHD. VLDL Calculated 74(H) 5 - 40 mg/dL [facility] INSURANCE BILL LDL Calculated 95 0 - 99 mg/dL [facility] INSURANCE BILL Comment NOT NEEDED [facility] INSURANCE BILL Comment:Ancillary determined the test is not needed Cholesterol/HDL Ratio 5.3(H) 0.0 - 5.0 ratio units [facility] INSURANCE BILL BLOOD SPECIMEN / Unknown 12/12/2013 9:30 AM CDT 12/12/2013 12:47 PM CDT Narrative Resulting Agency Comment [facility] [address] [facility] ??[facility] [phone] Isidro Heredia MD LAB - CHEMISTRY ORD ERABLES [facility] INSURANCE BILL documented in this encounter Visit Diagnoses Diagnosis Other and unspecified hyperlipidemia- Primary documented in this encounter Care Teams Tank Cleaner Relationship Specialty Start Date End Date Nolberto Nicole MD PCP - General 07/21/08 12/30/13 Isidro Heredia MD Rheumatology 02/09/11 documented as of this encounter
--- OUTSIDE RECORDS SUMMARY | 2024-05-03 04:13 | XMS_ITS | Encounter Summary ---
Author Organization [facility] Address [address] [facility] [place] [address] Care Team Providers Care Skills Auditor Name Role Phone Isidro Heredia MD Unavailable [phone] Tomas Hyman MD Primary Care Provider [phone] Reason for Visit * Treatment (Routine) - Closed Specialty Diagnoses / Procedures Referred By Contsarahi t Referred To Contact Pain Management Diagnoses Displacement of lumbar intervertebral disc without myelopathy Thoracic or lumbosacral neuritis or radiculitis, unspecified Procedures NC INJ,FORAMEN,L/S,1 LEVEL NC INJ,FORAMEN,L/S,[place] [id number] [address] [facility] [address] [place] [address] Referral ID Status Reason Start Date Expiration Date Visits Re quested Visits Authorized [id number] Closed 03/10/2014 09/06/2014 6 6 Encounter Details Date Type Department Care Team (Latest Contact Info) Description 03/10/2014 10:18 AM SERVICE MANAGER Hospital Encounter [facility] [address] [place] [address] [place] [id number] [address] Discharge Disposition: Home or Self [...] Sig Dispensed Refills Start Date End Date Wopmubtbrrs-Ytrqaffpi-Xh t C-Mn (GLUCOSAMINE CHONDR 1500 COMPLX PO) [...] oxyCODONE-acetaminophen (PERCOCET) 5-325 MG tabletIndications:Rheuma toid arthritis(714.0) ([facility]) Take 1 Tab by mouth [...] Contact Info) Description 06/03/2024 1:00 PM SERVICE MANAGER Appointment [facility] - Rheumatology [address] [place] [address] [phone] 06/03/2024 2:00 PM SERVICE MANAGER Office Visit [facility] - Rheumatology [address] [place] [address] Gloria Smith MD [address] [place] [phone] documented as of this encounter Visit Diagnoses Not on filedocumented in this encounter Care Teams Skills Auditor Relationship Specialty Start Date End Date Tomas Hyman MD [address] [facility] [address] [place] [address] PCP - General Family Medicine 12/31/13 05/09/18 Isidro Heredia MD Rheumatology 02/09/11 documented as of this encounter
--- OUTSIDE RECORDS SUMMARY | 2024-05-03 04:13 | XMS_ITS | Encounter Summary ---
Author Organization [facility] Address [address] [place] [address] Care Team Providers Care Database Analyst Name Role Phone Isidro Heredia MD Unavailable [phone] Tomas Hyman MD Primary Care Provider [phone] Reason for Visit * Reason Comments Rheumatoid Arthritis Lower Extremity Problem right hip pain r adiates down right leg into foot * Consult, Test & Treat (Routine) - Closed Specialty Diagnoses / Procedures Referred By Contac t Referred To Contact Diagnoses Rheumatoid arthritis(714.0) ([facility]) Procedures [place] OFFICE VISIT DURING HOURS Nolberto Nicole MD [address] [place] [address] Isidro Heredia MD [address] [place] [address] Referral ID Status Reason Start Date Expiration Date Visits Re quested Visits Authorized [id number] Closed 09/30/2013 03/28/2014 1 6 Encounter Details Date Type Department Care Team (Late st Contact Info) Description 12/31/2013 11:00 AM CDT Office Visit [facility] - Rheumatology [address] [place] [address] Isidro Heredia MD [address] [place] [address] Chronic pain syndrome (Primary Dx); Rheumatoid arthritis (HCC); Lumbar radiculopathy Social History Tobacco Use Types [...] Reading Time Taken Comments Blood Pressure 141/94 12/31/2013 11:25 AM CDT Pulse 93 12/31/2013 11:25 AM CDT Temperature - - Respiratory Rate - - Oxygen Saturation - - Inhaled Oxygen Concentration - - Weight 118 kg (260 lb 3.2 oz) 12/31/2013 11:25 A M CDT Height 177.8 cm (5' 10 ) 12/31/2013 11:25 AM CDT Body Mass Index 37.33 12/31/2013 11:25 AM CDT documented in this encounter Progress Notes * Isidro Heredia MD - 12/31/2013 11:43 AM CDT Subjective: Chalino Deng 53 y.o. male is here for Chief Complaint Patient presents with ??? Rheumatoid Arthritis ??? Lower Extremity Problem right hip pain radiates down right leg into foot HPI: On mtx pred 10 mg bid actemra naprosyn For ra and percocet for chronic pain Pain Level 8/10 lbp with radiation to r foot And neck hands knees Am stiffness 1 hr Global 8/10 Fatigue yes Medication Side Effects no Current Outpatient Prescriptions on File Prior to Visit Medication Sig Dispense Refill ??? simvastatin (ZOCOR) 20 MG tablet Take 20 mg by mouth at bedtime. ??? Magnesium Citrate 100 MG TABS Take [...] PO) Take by mouth once daily. ??? Nmrneuxvmca-Fhupekcqa-Nzd C-Mn (GLUCOSAMINE CHONDR 1500 COMPLX PO) Take [...] Physical Exam: wd wn wm in nad 13a/o x3 BP 141/94 Pulse 93 Ht 1.778 m (5' 10 ) Wt 118.026 kg (260 lb 3.2 oz) BMI 37.33 kg/m2 Head: perrla, eyes no irritation, vision and hearing intact, no oral ulcers, tongue normal, throat clear Neck:supple, no bruits, adenopathy Chest: clear, no rales, rhonchi or wheezes. Heart nsr. No S3,S4, or murmurs Abdomen:soft, no masses or tenderness, no organomegaly Genitalia, Groin, Buttocks: Back: no abnormal curvature, he has tenderness lower back with spasm Extremities: No edema, cyanosis, or rash RUE: 13/TJ, 4/SJ, 0/muscle tenderness or weakness LUE: 13/TJ, 4/SJ, 0/muscle tenderness or weakness RLE: 1/TJ, 1/SJ, 0/muscle tenderness or weakness LLE: 1/TJ, 1/SJ, 0/muscle tenderness or weakness Assessment: Encounter Diagnoses Name Primary? Chronic pain syndrome Yes ??? Rheumatoid arthritis ??? Lumbar radiculopathy poorly controlled ra chronic pain radiculopathy Same meds xrays ls spine Plan: Plan Orders Placed This Encounter ??? oxyCODONE-acetaminophen (PERCOCET) 5-325 MG tablet Sig: Take 1 Tab by mouth every 6 hours as needed for Pain. Dispense: 120 Tab Refill: 0 Follow up in office in 4 weeks documented in this encounter Plan of Treatment Upcoming Encounters Date Type Department Care Team (Late st Contact Info) Description 06/03/2024 1:00 PM COPY SUPERVISOR Appointment [facility] - Rheumatology [address] [place] [address] [phone] 06/03/2024 2:00 PM COPY SUPERVISOR Office Visit [facility] - Rheumatology [address] [place] [address] [phone] Gloria Smith MD [address] [place] [phone] documented as of this encounter Results * XR LUMBAR SPINE 2 OR 3 VW (01/06/2014 2:02 PM CDT) Anatomical Region Laterality Modality Spine Other Narrative 01/06/2014 2:02 PM CDT Isidro Heredia MD ? 01/06/2014 ??2:02 PM Xrays Lumbar spine: Loss of lordotic curve. No other significant abnormalities Isidro Heredia MD DIAGNOSTIC IMAGING ORDERABLES documented in this encounter Visit Diagnoses Diagnosis Chronic pain syndrome- Primary Rheumatoid arthritis(714.0) ([facility]) Rheumatoid arthritis Lumbar radiculopathy Thoracic or lumbosacral neuritis or radiculitis, unspecified Lumbar radiculopathy- Primary Thoracic or lumbosacral neuritis or radiculitis, unspecified documented in this encounter Care Teams Database Analyst Relationship Specialty Start Date End Date Tomas Hyman MD [address] [facility] [address] [place] [address] PCP - General Family Medicine 12/31/13 05/09/18 Isidro Heredia MD Rheumatology 02/09/11 documented as of this encounter
--- OUTSIDE RECORDS SUMMARY | 2024-05-03 04:14 | XMS_ITS | Encounter Summary ---
Author Organization [facility] Address [address] [facility] [place] [address] Care Team Providers Care Watch And Clock Repairer Name Role Phone Nolberto Nicole MD Primary Care Provider [phone] Isidro Heredia MD Unavailable [phone] Reason for Visit * Reason Comments Refill Request Encounter Details Date Type Department Care Team (Late Contact Info) Description 07/17/2013 Refill [facility] - Rheumatology [address] [place] [address] Isidro Heredia MD [address] [place] [address] Refill Request Social History Tobacco Use Types Packs/Day Years Used Date Smoking Tobacco: Never Alcohol Use Standard Drinks/Week Comments No 0 (1 standard drink = 0.6 oz pur e alcohol) Sex and Gender Information Value Date Recorded Sex Assigned at Not on file Gender Identity Not on file Sexual Orientation Not on file documented as of this encounter Plan of Treatment Upcoming Encounters Date Type Department Care Team (Late Contact Info) Description 06/03/2024 1:00 PM FOUR SLIDE MACHINE SETTER Appointment [facility] - Rheumatology [address] [place] [address] 06/03/2024 2:00 PM FOUR SLIDE MACHINE SETTER Office Visit [facility] - Rheumatology [address] [place] [address] Gloria Smith MD [address] [place] [address] [place] [phone] documented as of this encounter Visit Diagnoses Not on filedocumented in this encounter Care Teams Watch And Clock Repairer Relationship Specialty Start Date End Date Nolberto Nicole MD PCP - General 07/21/08 12/30/13 Isidro Heredia MD Rheumatology 02/09/11 documented as of this encounter
--- OUTSIDE RECORDS SUMMARY | 2024-05-03 04:14 | XMS_ITS | Encounter Summary ---
Author Organization [facility] Address [address] [facility] [place] [address] Care Team Providers Care Porter Head Name Role Phone Nolberto Nicole MD Primary Care Provider [phone] Isidro Heredia MD Unavailable [phone] Reason for Visit * Reason Comments Rheumatoid Arthritis * Consult, Test & Treat (Routine) - Closed Specialty Diagnoses / Procedures Referred By Contsarahi t Referred To Contact Diagnoses Rheumatoid arthritis(714.0) (HCC) Procedures [place] OFFICE VISIT DURING HOURS Nolberto Nicole MD [address] [place] [address] Isidro Heredia MD [address] [place] [address] Referral ID Status Reason Start Date Expiration Date Visits Re quested Visits Authorized [id number] Closed 03/14/2013 09/11/2013 1 6 Encounter Details Date Type Department Care Team (Late st Contact Info) Description 05/12/2013 1:00 PM METEOROLOGICAL OBSERVER Office Visit [facility] Medical [facility] - Rheumatology [address] [place] [address] Isidro Heredia MD [address] [place] [address] Rheumatoid arthritis (HCC) (Primary Dx); Chronic pain syndrome; Subacromial bursitis Social History Tobacco Use Types [...] Reading Time Taken Comments Blood Pressure 138/89 05/12/2013 12:57 PM METEOROLOGICAL OBSERVER Pulse 81 05/12/2013 12:57 PM METEOROLOGICAL OBSERVER Temperature - - Respiratory Rate - - Oxygen Saturation - - Inhaled Oxygen Concentration - - Weight 113.4 kg (250 lb) 05/12/2013 12:57 PM METEOROLOGICAL OBSERVER Height - - Body Mass Index 35.87 05/12/2013 12:03 PM METEOROLOGICAL OBSERVER documented in this encounter Progress Notes * Isidro Heredia MD - 05/12/2013 1:09 PM CST Subjective: Chalino Deng 52 y.o. male is here for Chief Complaint Patient presents with ??? Rheumatoid Arthritis HPI: On mtx actemra 2nd dose off rituxan pred 10 mg bid for r a and percocet for chronic pain Pain Level: 8/10 hands wrist knees shoulders Am stiffness 2 hrs exhausted end of day Global 6/10 Fatigue yes Medication Side Effects no Current Outpatient Prescriptions on File Prior to Visit Medication Status Sig Dispense Refill ??? tocilizumab 20 MG/ML in NaCl 0.9 % 100 mL Active Pt to receive IV infusion Actemra 460mg/100cc 0.9%normal saline per Actemra protocol unless further orders received from Dr. Heredia. Order danaxrenny in 1 year. 04/07/2014 ??? methotrexate 2.5 MG tablet Active Take 6 Tabs by mouth every 7 days. 72 Tab 3 ??? tamsulosin CR 24hr (FLOMAX) 0.4 MG capsule Active Take 1 Cap by mouth once daily. Take 30 minutes after a meal at the same time each day. 30 Cap 5 ??? esomeprazole (NEXIUM) 40 MG capsule Active Take 1 Cap by mouth daily before breakfast. 90 Cap 3 ??? naproxen (NAPROSYN) 500 MG tablet Active Take 1 Tab by mouth 2 times daily. 180 Tab 3 ??? predniSONE (DELTASONE) 10 MG tablet Active Take 1 Tab by mouth 2 times daily. 180 Tab 3 ??? metaxalone (SKELAXIN) 800 MG tablet Active Take 1 Tab by mouth 3 times daily. 270 Tab 1 ??? fish oil/omega-3 fatty acids (FISH OIL) 1000 MG capsule Active Take 1,000 mg by mouth 2 times daily. ??? niacin, Immediate Release, 500 MG tablet Active Take 500 mg by mouth at bedtime. ??? Multiple Vitamin (MULTI-VITAMIN PO) Active Take by mouth once daily. ??? Aqrawcagbsk-Gptpefkvf-Dvd C-Mn (GLUCOSAMINE CHONDR 1500 COMPLX PO) Active Take by mouth once daily. ??? diclofenac sodium (VOLTAREN) 1 % gel Active Apply 1 g to affected area 4 times daily. 1 4 ??? ZYRTEC 10 MG TABS Active Take 10 mg by mouth once daily. Seasonal (nov. No current facility-administered medications on file prior to visit. Patient Active Problem List Diagnosis ??? Rheumatoid Arthritis ??? GERD (Gastroesophageal Reflux Disease) ??? Osteopenia ??? ANEMIA ??? Subacromial bursitis ??? Chronic pain syndrome ??? Pain medication agreement signed History Smoking status ??? Never Smoker Smokeless tobacco ??? Not on file History Alcohol Use No History Drug Use [...] wn wm in nad a/o x3 BP 138/89 Pulse 81 Wt 113.399 kg (250 lb) Head: perrla, eyes no irritation, vision [...] 13/TJ, 6/SJ, 0/muscle tenderness or weakness RLE: 1/TJ, /SJ, 0/muscle tenderness or weakness LLE: 1/TJ, 1/SJ, 0/muscle tenderness or weakness Assessment: Encounter Diagnoses Name Primary? Rheumatoid arthritis Yes ??? Chronic pain syndrome ??? Subacromial bursitis poorly controlled same meds plus steroid shot Plan: Plan Orders Placed This Encounter ??? oxycodone-acetaminophen (PERCOCET) 5-325 MG tablet Sig: Take 1 Tab by mouth every 6 hours as needed for Pain. Dispense: 120 Tab Refill: 0 ??? risedronate Sodium (ACTONEL) 150 MG tablet Sig: Take 1 Tab by mouth every 30 days. Dispense: 3 Tab Refill: 3 Follow up in office in 4 weeks Under sterile condition, 2 cc's of tac were injected in the left subacromial bursa.. Patient tolerated procedure well without complications. OROLOGICAL OBSERVER documented in this encounter Plan of Treatment Upcoming Encounters Date Type Department Care Team (Late st Contact Info) Description 06/03/2024 1:00 PM METEOROLOGICAL OBSERVER Appointment [facility] - Rheumatology [address] [place] [address] [phone] 06/03/2024 2:00 PM METEOROLOGICAL OBSERVER Office Visit [facility] - Rheumatology [address] [place] [address] [phone] Gloria Smith MD [address] [place] [phone] documented as of this encounter Visit Diagnoses Diagnosis Rheumatoid arthritis(714.0) ([facility])- Primary Rheumatoid arthritis Chronic pain syndrome Subacromial bursitis Other specified disorders of rotator cuff syndrome of shoulder and allied disorders documented in this encounter Care Teams Porter Head Relationship Specialty Start Date End Date Nolberto Nicole MD PCP - General 07/21/08 12/30/13 Isidro Heredia MD Rheumatology 02/09/11 documented as of this encounter
--- OUTSIDE RECORDS SUMMARY | 2024-05-03 04:14 | XMS_ITS | Encounter Summary ---
Author Organization [facility] Address [address] [facility] [place] [address] Care Team Providers Care Sugar Mixer Name Role Phone Nolberto Nicole MD Primary Care Provider [phone] Isidro Heredia MD Unavailable Reason for Visit * Reason Comments Rheumatoid Arthritis Pain Knee left Pain Hand rt with some swellin g * Evaluate & Treat (Routine) - Closed Specialty Diagnoses / Procedures Referred By Lawrence shah Referred To Contact Diagnoses Rheumatoid arthritis(714.0) (HCC) Procedures [place] OFFICE VISIT DURING HOURS Nolberto Nicole MD [address] [place] [address] Isidro Heredia MD [address] [place] [address] Referral ID Status Reason Start Date Expiration Date Visits Re quested Visits Authorized [id number] Closed 08/15/2012 02/11/2013 1 5 Encounter Details Date Type Department Care Team (Late st Contact Info) Description 01/09/2013 3:00 PM CDT Office Visit [facility] - Rheumatology [address] [place] [address] Isidro Heredia MD [address] [place] [address] Rheumatoid arthritis (HCC) (Primary Dx); [...] Sign Reading Time Taken Comments Blood Pressure 129/84 01/09/2013 1:35 PM CDT Pulse 110 01/09/2013 1:35 PM CDT Temperature - - Respiratory Rate - - Oxygen Saturation - - Inhaled Oxygen Concentration - - Weight 106.6 kg (235 lb) 01/09/2013 1:35 PM CDT Height - - Body Mass Index 33.72 01/09/2013 11:48 AM CDT documented in this encounter Progress Notes * Isidro Heredia MD - 01/09/2013 1:59 PM CDT Subjective: Chalino Deng 52 y.o. male is here for Chief Complaint Patient presents with ??? Rheumatoid Arthritis ??? Pain Knee left ??? Pain Hand rt with some swelling HPI: On mtx rituxan pred 10 mg bid for ra and percocet for chronic pain Pain Level: 8/10 knees hands Am stiffness 1-2 hrs Global 7/10 Fatigue yesd Medication Side Effects no Current Outpatient Prescriptions on File Prior to Visit Medication Status Sig Dispense Refill ??? rituximab (RITUXAN) 10 MG/ML injection Active Pt to receive IV infusion Rituxan 1000mg/150cc 0.9%normal saline, Benadryl 25mg (160lb or less) or 50mg (161lb or more)/10cc saline over 3 min IV push and Solumedrol 125mg/10cc saline over 3min IVP per Rituxan protocol unless further orders receivedfrom Dr. Heredia. Order will in 1 year. 12/25/2103 ??? tamsulosin CR 24hr (FLOMAX) 0.4 MG [...] 2 times daily. 180 Tab 3 ??? methotrexate 2.5 MG tablet Active Take 6 Tabs by mouth every 7 days. 72 Tab 3 ??? predniSONE (DELTASONE) 10 MG [...] Active Take by mouth once daily. ??? Rlqyvwwswme-Qxaednjag-Rdl C-Mn (GLUCOSAMINE CHONDR 1500 COMPLX PO) Active Take by mouth once daily. ??? risedronate Sodium (ACTONEL) 150 MG tablet Active Take 1 Tab by mouth every 30 days. 3 Tab 3 ??? diclofenac sodium (VOLTAREN) 1 % gel Active Apply 1 g to affected area 4 times daily. 1 4 ??? ZYRTEC 10 MG TABS Active Take 10 mg by mouth once daily. Seasonal (nov. Current Facility-Administered Medications on File Prior to Visit Medication Status Dose Route Frequency Provider Last Rate Last Dose ??? diphenhydrAMINE (BENADRYL) injection 50 mg Completed 50 mg Intravenous Once Isidro Heredia MD 50 mg at 01/09/13 1200 ??? methylPREDNISolone sod succ (Solu-MEDROL) injection 125 mg Completed 125 mg Intravenous Once Isidro Heredia MD 125 mg at 01/09/13 1205 ??? rituximab (RITUXAN) 1,000 mg in NaCl 0.9 % infusion Completed 1,000 mg Intravenous Once Isidro Rivera MD 1,000 mg at 01/09/13 1235 ??? diphenhydrAMINE (BENADRYL) injection 50 mg 50 mg Intravenous Once Isidro Heredia MD Patient [...] Appearance Physical Exam: wdwn wm in nad a/o x3 BP 129/84 Pulse 110 Wt 106.595 kg (235 lb) Head: perrla, eyes no irritation, vision and hearing intact, no oral ulcers, tongue normal, throat clear Neck:supple, no bruits, adenopathy Chest: clear, no rales, rhonchi or wheezes. Heart nsr. No S3,S4, or murmurs Abdomen:soft, no masses or tenderness, no organomegaly Genitalia, Groin, Buttocks: Back: no abnormal curvature, tenderness, or muscle spasm Extremities: No edema, cyanosis, or rash RUE: 12/TJ, 5/SJ, 0/muscle tenderness or weakness LUE: 10/TJ, 3/SJ, 0/muscle tenderness or weakness RLE: 1/TJ, [...] Contact Info) Description 06/03/2024 1:00 PM STAFF RESEARCH SCIENTIST Appointment [facility] - Rheumatology [address] [place] [address] 06/03/2024 2:00 PM STAFF RESEARCH SCIENTIST Office Visit [facility] - Rheumatology [address] [place] [address] Gloria Smith MD [address] [place] [phone] documented as of this encounter Visit Diagnoses Diagnosis Rheumatoid arthritis(714.0) (HCC)- Primary Rheumatoid arthritis Chronic pain syndrome documented in this encounter Care Teams Sugar Mixer Relationship Specialty Start Date End Date Nolberto Nicole MD PCP - General 07/21/08 12/30/13 Isidro Heredia MD Rheumatology 02/09/11 documented as of this encounter
--- OUTSIDE RECORDS SUMMARY | 2024-05-03 04:14 | XMS_ITS | Encounter Summary ---
Author Organization [facility] Address [address] [place] [address] Care Team Providers Care Fermentologist Name Role Phone Nolberto Nicole MD Primary Care Provider [phone] Isidro Heredia MD Unavailable [phone] Reason for Visit * Treatment (Routine) - Closed Specialty Diagnoses / Procedures Referred By Lawrence shah Referred To Contact Infusion Therapy Nurse Diagnoses Rheumatoid arthritis(714.0) ([facility]) Procedures CO INJECTION TOCILIZUMAB 1 MG Isidro Heredia MD [address] [facility] [place] [address] Referral ID Status Reason Start Date Expiration Date Visits Re quested Visits Authorized [id number] Closed 05/01/2013 04/29/2014 1 12 Encounter Details Date Type Department Care Team (Late st Contact Info) Description 06/10/2013 1:30 PM DREDGE MATE - 06/10/2013 11:59 PM [facility] Hospital Encounter [facility] - Rheumatology [address] [place] [address] Isidro Heredia MD [address] [place] [address] Discharge Disposition: Home or Self [...] Sign Reading Time Taken Comments Blood Pressure 130/80 06/10/2013 2:00 PM DREDGE MATE Pulse 88 06/10/2013 2:00 PM DREDGE MATE Temperature 36.8 ??C (98.2 ??F) 06/10/2013 2:00 PM CS T Respiratory Rate 16 06/10/2013 2:00 PM DREDGE MATE Oxygen Saturation - - Inhaled Oxygen Concentration - - Weight 113.4 kg (250 lb) 06/10/2013 2:00 PM DREDGE MATE Height 177.8 cm (5' 10 ) 06/10/2013 2:00 PM DREDGE MATE Body Mass Index 35.87 06/10/2013 2:00 PM DREDGE MATE documented in this encounter Discharge Instructions * Discharge Instructions* Carlos Foreman, RN - 06/10/2013 2:05 PM DREDGE MATE [place] Rheumatology Post Infusion instructions You have [...] rash or breathing problems please call your [facility] Rheumatology physician for further instructions. While most problems that occur around the time of an infusion are very mild and not dangerous, they should not be ignored. Sunday through Sunday 9-5 call the office at [phone] After hours or on the weekend call the exchange at [phone] If you have had lab work done [...] chosen [facility] as your provider. Carlos Foreman RN GE MATE * Discharge Instructions* Document, Scanned - 06/19/2013 8:21 PM DREDGE MATE GE MATE documented in this encounter Medications at Time of Discharge Medication Sig Dispensed Refills Start Date End Date Xvndjiqxhnw-Wgaqaolyu-Xs t C-Mn (GLUCOSAMINE CHONDR 1500 COMPLX PO) [...] 500 mg by mouth at bedtime. 01/14/2014 oxycodone-acetaminophen (PERCOCET) 5-325 MG tabletIndications:Rheuma toid arthritis(714.0) ([facility]) Take 1 Tab by mouth every 6 hours as needed for Pain. 120 Tab 0 06/10/2013 07/09/2013 predniSONE (DELTASONE) 10 MG tablet Take 1 Tab by mouth 2 times daily. 180 Tab 3 07/22/2012 07/17/2013 risedronate Sodium (ACTONEL) 150 MG tablet Take [...] 5 11/11/2012 08/12/2014 tocilizumab 20 MG/ML in NaCl 0.9 % 100 mL Pt to receive IV infusion Actemra 460mg/100cc 0.9%normal saline per Actemra protocol unless further orders received from Dr. Heredia. Order will in 1 year. 04/07/2014 04/07/2013 10/15/2013 documented as of this encounter Progress Notes * Carlos Foreman RN - 06/10/2013 2:04 PM CST JOSE Deng [id number] 06/10/2013 Diagnosis: Rheumatoid arthritis [714.0]. Patient questionnaire results Health Assessment Questionnaire BP 130/80 Pulse 88 Temp 98.2 ??F Resp 16 Wt 113.399 kg (250 lb) BMI 35.87 kg/m2 @ MEDICATIONS FOR CURRENT ENCOUNTER: ?? SCHEDULED MEDICATIONS: ?? tocilizumab (ACTEMRA) 460 mg in NaCl 0.9 % IVPB, Active, Intravenous, Once ?? CONTINUOUS MEDICATIONS: PRN MEDICATIONS: ?? Number of 22 gauge 1 inch placed in Right hand ?? 1 attempt(s). Patient monitored throughout procedure. Tolerated well? Yes Next treatment? 4wk Carlos Foreman RN GE MATE documented in this encounter Miscellaneous Notes * Miscellaneous Scans - Document, Scanned - 06/18/2013 10:14 PM CST GE MATE documented in this encounter Plan of Treatment Upcoming Encounters Date Type Department Care Team (Late st Contact Info) Description 06/03/2024 1:00 PM DREDGE MATE Appointment [facility] - Rheumatology [address] [place] [phone] 06/03/2024 2:00 PM DREDGE MATE Office Visit [facility] - Rheumatology [address] [place] [address] [phone] Gloria Smith MD [address] [place] [phone] documented as of this encounter Visit Diagnoses Diagnosis Rheumatoid arthritis(714.0) ([facility])- Primary Rheumatoid arthritis documented in this encounter Administered Medications Inactive Administered Medications - up to 3 most recent administrations Medication Order MAR Action Action Date Dose Rate Site tocilizumab (ACTEMRA) 460 mg in NaCl 0.9 % IVPB 460 mg, at 100 mL/hr, Intravenous, ONCE, 1 dose, On Sun06/10/13 at 1345 $ Given 06/10/2013 2:03 PM DREDGE MATE 460 mg 100 mL/hr documented in this encounter Care Teams Fermentologist Relationship Specialty Start Date End Date Nolberto Nicole MD PCP - General 07/21/08 12/30/13 Isidro Heredia MD Rheumatology 02/09/11 documented as of this encounter
--- OUTSIDE RECORDS SUMMARY | 2024-05-03 04:14 | XMS_ITS | Encounter Summary ---
Author Organization [facility] Address [address] [facility] [place] [address] Care Team Providers Care Director Hr Communications Name Role Phone Nolberto Nicole MD Primary Care Provider [phone] Isidro Heredia MD Unavailable [phone] Toams Hyman MD Primary Care Provider [phone] Encounter Details Date Type Department Care Team (Late st Contact Info) Description 01/09/2013 Orders Only [facility] - Rheumatology [address] [place] [address] Carlos Foreman RN Social History Tobacco Use Types Packs/Day Years [...] (Late Contact Info) Description 06/03/2024 1:00 PM HOT PLATE PLYWOOD PRESS LABORER Appointment [facility] - Rheumatology [address] [place] [address] 06/03/2024 2:00 PM HOT PLATE PLYWOOD PRESS LABORER Office Visit [facility] - Rheumatology [address] [place] [address] Gloria Smith MD [address] [place] [phone] documented as of this encounter Visit Diagnoses Not on filedocumented in this encounter Care Teams Director Hr Communications Relationship Specialty Start Date End Date Nolberto Nicole MD PCP - General 07/21/08 12/30/13 Tomas Hyman MD [address] [facility] [address] [place] [address] PCP - General Family Medicine 12/31/13 05/09/18 Isidro Heredia MD Rheumatology 02/09/11 documented as of this encounter
--- OUTSIDE RECORDS SUMMARY | 2024-05-03 04:14 | XMS_ITS | Encounter Summary ---
Author Organization [facility] Address [address] [facility] [place] [address] Care Team Providers Care Water Quality Tester Name Role Phone Nolberto Nicole MD Primary Care Provider Isidro Heredia MD Unavailable [phone] Encounter Details Date Type Department Care Team (Late Contact Info) Description 09/04/2013 Orders Only [facility] - Rheumatology [address] [place] [address] Carlos Foreman RN Rheumatoid arthritis (HCC) Social History Tobacco Use [...] (Late Contact Info) Description 06/03/2024 1:00 PM ROCKBOARD LATHER Appointment [facility] - Rheumatology [address] [place] [address] 06/03/2024 2:00 PM ROCKBOARD LATHER Office Visit [facility] - Rheumatology [address] [place] [address] Gloria Smith MD [address] [place] [phone] documented as of this encounter Visit Diagnoses Diagnosis Rheumatoid arthritis(714.0) (HCC)- Primary Rheumatoid arthritis documented in this encounter Care Teams Water Quality Tester Relationship Specialty Start Date End Date Nolberto Nicole MD PCP - General 07/21/08 12/30/13 Isidro Heredia MD Rheumatology 02/09/11 documented as of this encounter
--- OUTSIDE RECORDS SUMMARY | 2024-05-03 04:14 | XMS_ITS | Encounter Summary ---
Author Organization [facility] Address [address] [facility] [place] [address] Care Team Providers Care Cushion Stuffer Name Role Phone Nolberto Nicole MD Primary Care Provider Isidro Heredia MD Unavailable Reason for Visit * Reason Comments Rheumatoid Arthritis pain scale: [address] iffness: Chest Pain left side. sob whem doing yard work Hospital Follow-up [facility] ([facility]) october 25 2012 regarding bladder infection. taking Cipro and Flomax * Evaluate & Treat (Routine) - Closed Specialty Diagnoses / Procedures Referred By Lawrence shah Referred To Contact Diagnoses Rheumatoid arthritis(714.0) ([facility]) Procedures [place] OFFICE VISIT DURING HOURS Nolberto Nicole MD [address] [place] [address] Isidro Heredia MD [address] [place] [address] Referral ID Status Reason Start Date Expiration Date Visits Re quested Visits Authorized [id number] Closed 08/15/2012 02/11/2013 1 5 Encounter Details Date Type Department Care Team (Late st Contact Info) Description 11/11/2012 5:15 PM CDT Office Visit [facility] - Rheumatology [address] [place] [address] Isidro Heredia MD [address] [place] [address] Rheumatoid arthritis (HCC) (Primary Dx); Chronic pain syndrome; Acute UTI Social History Tobacco Use Types Packs/Day Years [...] Sign Reading Time Taken Comments Blood Pressure 124/90 11/11/2012 5:39 PM CDT Pulse 84 11/11/2012 5:39 PM CDT Temperature - - Respiratory Rate - - Oxygen Saturation - - Inhaled Oxygen Concentration - - Weight 111 kg (244 lb 12.8 oz) 11/11/2012 5:39 P M CDT Height - - Body Mass Index 35.13 09/02/2012 9:13 AM CDT documented in this encounter Progress Notes * Isidro Heredia MD - 11/11/2012 6:00 PM CDT Subjective: Chalino Deng 52 y.o. male is here for Chief Complaint Patient presents with ??? Rheumatoid Arthritis pain scale: 7 am stiffness: ??? Chest Pain left side. sob whem doing yard work ??? Hospital Follow-up [facility] ([facility]) october 25 2012 regarding bladder infection. taking Cipro and Flomax On mtx percocet for ra on rituxan q 6 mo failed humira remicade HPI: Went to the er with uti no stones Had flank pain got iv abt On cipro and flomax He had neg cyst and xrays Needed [facility] for 5 days Pain Level: 6/10 hands knees ankles Am stiffness 1 hr Global 7/10 Fatigue yes Medication Side Effects no Current Outpatient Prescriptions on File Prior to Visit Medication Sig Dispense Refill ??? esomeprazole (NEXIUM) 40 MG capsule Take 1 Cap by mouth daily before breakfast. 90 Cap 3 ??? naproxen (NAPROSYN) 500 MG tablet Take 1 Tab by mouth 2 times daily. 180 Tab 3 ??? methotrexate 2.5 MG tablet Take 6 Tabs by mouth every 7 days. 72 Tab 3 ??? predniSONE (DELTASONE) 10 MG tablet Take 1 Tab by mouth 2 times daily. 180 Tab 3 ??? metaxalone (SKELAXIN) 800 MG tablet Take 1 Tab by mouth 3 times daily. 270 Tab 1 ??? terbinafine (LAMISIL) 250 MG tablet Take 1 Tab by mouth once daily. 30 Tab 1 ??? fish oil/omega-3 fatty acids (FISH OIL) 1000 MG capsule Take 1,000 mg by mouth 2 times daily. ??? niacin, Immediate Release, 500 MG tablet Take 500 mg by mouth at bedtime. ??? Multiple Vitamin (MULTI-VITAMIN PO) Take by mouth once daily. ??? Myrjxhgrgfv-Ajxlfmdjg-Roi C-Mn (GLUCOSAMINE CHONDR 1500 COMPLX PO) Take by mouth once daily. ??? risedronate Sodium (ACTONEL) 150 MG tablet Take 1 Tab by mouth every 30 days. 3 Tab 3 ??? diclofenac sodium (VOLTAREN) 1 % gel Apply 1 g to affected area 4 times daily. 1 4 ??? ZYRTEC 10 MG TABS Take 10 mg by mouth once daily. Seasonal (nov. Patient Active Problem List Diagnosis ??? Rheumatoid Arthritis ??? GERD (Gastroesophageal Reflux Disease) ??? Osteopenia ??? ANEMIA ??? Subacromial bursitis ??? Chronic pain syndrome ??? Pain medication agreement signed History Smoking status ??? Never Smoker Smokeless tobacco ??? Not on file History Alcohol Use No History Drug Use Not on file Review of Systems: General: He had fever, chills, sweats, no weight loss Eyes: No redness, discharge, blurred vision ENMT: No ear ache, loss of hearing, runny nose, sore gums, ulcers, sore throat CV: After trimming tree he had chest pain with tachycardia No palpitations, orthopnea, syncope Resp: shortness of breath with exertion no, cough, pleurisy, wheezing GI No nausea vomiting, abdominal pain, weight loss, anorexia, gerd, melena, diarrhea MS: NEURO: No headaches, seizures, dizziness, confusion, [...] Exam: wd wn wm in nad BP 124/90 Pulse 84 Wt 111.041 kg (244 lb 12.8 oz) Head: perrla, eyes no irritation, vision [...] 13/TJ, 5/SJ, 0/muscle tenderness or weakness RLE: 1/TJ, 1/SJ, 0/muscle tenderness or weakness LLE: 1/TJ, 1/SJ, 0/muscle tenderness or weakness Assessment: Encounter Diagnoses Name Primary? Rheumatoid arthritis Yes ??? Chronic pain syndrome ??? Acute UTI poorly controlled ra chronic pain Move rituxan up to november Off work x 2 weeks get cardiol eval Plan: Plan Orders Placed This Encounter ??? oxycodone-acetaminophen (PERCOCET) 5-325 MG tablet Sig: Take 1 Tab by mouth every 6 hours as needed for Pain. Dispense: 120 Tab Refill: 0 Follow up in office in 4 weeks * Rea Hagan MA - 11/11/2012 5:39 PM CDT Chief Complaint Patient presents with ??? Rheumatoid Arthritis pain scale: 7 am stiffness: ??? Chest Pain left side. sob whem doing yard work ??? Hospital Follow-up [facility] ([facility]) october 25 2012 regarding bladder infection. taking Cipro and Flomax BP 124/90 Pulse 84 Wt 111.041 kg (244 lb 12.8 oz) documented in this encounter Plan of Treatment Upcoming Encounters Date Type Department Care Team (Late st Contact Info) Description 06/03/2024 1:00 PM DIESEL ENGINE SPECIALIST Appointment [facility] - Rheumatology [address] [place] [address] [phone] 06/03/2024 2:00 PM DIESEL ENGINE SPECIALIST Office Visit [facility] - Rheumatology [address] [place] [address] [phone] Gloria Smith MD [address] [place] [phone] documented as of this encounter Visit Diagnoses Diagnosis Rheumatoid arthritis(714.0) ([facility])- Primary Rheumatoid arthritis Chronic pain syndrome Acute UTI Urinary tract infection, site not specified documented in this encounter Care Teams Cushion Stuffer Relationship Specialty Start Date End Date Nolberto Nicole MD PCP - General 07/21/08 12/30/13 Isidro Heredia MD Rheumatology 02/09/11 documented as of this encounter
--- OUTSIDE RECORDS SUMMARY | 2024-05-03 04:14 | XMS_ITS | Encounter Summary ---
Author Organization [facility] Address [address] [place] [address] Care Team Providers Care Pharmacy Director Name Role Phone Nolberto Nicole MD Primary Care Provider [phone] Isidro Heredia MD Unavailable [phone] Reason for Visit * Reason Comments Cough Encounter Details Date Type Department Care Team (Latest Contact Info) Description 07/22/2012 4:15 PM CDT Procedure visit [facility] [address] [place] [address] Rheumatoid arthritis (HCC) Social History Tobacco Use [...] Procedure Notes * Isidro Heredia MD - 09/10/2012 4:15 PM CDTAssociated Order(s): XR CHEST PA AND LATERAL Cxr: poor inspiration; no active disease documented in this encounter Plan of Treatment Upcoming Encounters Date Type Department Care Team (Late st Contact Info) Description 06/03/2024 1:00 PM STEM CLEANING MACHINE FEEDER Appointment [facility] - Rheumatology [address] [place] [address] 06/03/2024 2:00 PM STEM CLEANING MACHINE FEEDER Office Visit [facility] - Rheumatology [address] [place] [phone] Gloria Smith MD [address] [place] [phone] documented as of this encounter Procedures Procedure Name Priority Date/Time Associated Diagnosis Comments XR CHEST 2VW Routine 09/10/2012 4:17 PM CDT Rheumatoid arthritis (HCC) documented in this encounter Visit Diagnoses Diagnosis Rheumatoid arthritis(714.0) (HCC) Rheumatoid arthritis documented in this encounter Care Teams Pharmacy Director Relationship Specialty Start Date End Date Nolberto Nicole MD PCP - General 07/21/08 12/30/13 Isidro Heredia MD Rheumatology 02/09/11 documented as of this encounter
--- OUTSIDE RECORDS SUMMARY | 2024-05-03 04:14 | XMS_ITS | Encounter Summary ---
Author Organization [facility] Address [address] [place] [address] Care Team Providers Care Tour Leader Name Role Phone Nolberto Nicole MD Primary Care Provider [phone] Isidro Heredia MD Unavailable [phone] Encounter Details Date Type Department Care Team (Late Contact Info) Description 12/24/2012 Orders Only [facility] - Rheumatology [address] [place] [address] Mirela Rodrigez RN Rheumatoid arthritis (HCC) Social History Tobacco [...] (Late Contact Info) Description 06/03/2024 1:00 PM NURSE DISCHARGE PLANNER Appointment [facility] - Rheumatology [address] [place] [address] 06/03/2024 2:00 PM NURSE DISCHARGE PLANNER Office Visit [facility] - Rheumatology [address] [place] [address] Gloria Smith MD [address] [place] [phone] documented as of this encounter Visit Diagnoses Diagnosis Rheumatoid arthritis(714.0) ([facility])- Primary Rheumatoid arthritis documented in this encounter Care Teams Tour Leader Relationship Specialty Start Date End Date Nolberto Nicole MD PCP - General 07/21/08 12/30/13 Isidro Heredia MD Rheumatology 02/09/11 documented as of this encounter
--- OUTSIDE RECORDS SUMMARY | 2024-05-03 04:14 | XMS_ITS | Encounter Summary ---
Author Organization [facility] Address [address] [place] [address] Care Team Providers Care Regional Economist Name Role Phone Nolberto Nicole MD Primary Care Provider [phone] Isidro Heredia MD Unavailable [phone] Reason for Visit * Reason Comments Chest Pain Encounter Details Date Type Department Care Team (Late Contact Info) Description 03/21/2013 1:15 PM EMPLOYEE DEVELOPMENT MANAGER Procedure visit [facility] - Family Medicine [address] [place] [address] Pleurisy Social History Tobacco Use Types Packs/Day Years Used Date Smoking Tobacco: Never Alcohol Use Standard Drinks/Week Comments No 0 (1 standard drink = 0.6 oz pur e alcohol) Sex and Gender Information Value Date Recorded Sex Assigned at Not on file Gender Identity Not on file Sexual Orientation Not on file documented as of this encounter Procedure Notes * Isidro Heredia MD - 03/24/2013 6:22 PM CSTAssociated Order(s): XR CHEST PA AND LATERAL CXR: NAD OYEE DEVELOPMENT MANAGER documented in this encounter Plan of Treatment Upcoming Encounters Date Type Department Care Team (Late Contact Info) Description 06/03/2024 1:00 PM EMPLOYEE DEVELOPMENT MANAGER Appointment [facility] - Rheumatology [address] [place] [address] 06/03/2024 2:00 PM EMPLOYEE DEVELOPMENT MANAGER Office Visit [facility] - Rheumatology [address] [place] [address] Gloria Smith MD [address] [place] [phone] documented as of this encounter Procedures Procedure Name Priority Date/Time Associated Diagnosis Comments XR CHEST 2VW Routine 03/24/2013 6:23 PM EMPLOYEE DEVELOPMENT MANAGER Pleurisy documented in this encounter Results * XR CHEST PA AND LATERAL (03/24/2013 6:23 PM EMPLOYEE DEVELOPMENT MANAGER) Anatomical Region Laterality Modality Chest Other Narrative 03/24/2013 6:23 PM EMPLOYEE DEVELOPMENT MANAGER Isidro Heredia MD ? 03/24/2013 ??6:23 PM CXR: ??NAD Procedure Note Isidro Heredia MD - 03/24/2013 6:22 PM CST CXR: NAD Isidro Heredia MD DIAGNOSTIC IMAGING ORDERABLES documented in this encounter Visit Diagnoses Diagnosis Pleurisy- Primary documented in this encounter Care Teams Regional Economist Relationship Specialty Start Date End Date Nolberto Nicole MD PCP - General 07/21/08 12/30/13 Isidro Heredia MD Rheumatology 02/09/11 documented as of this encounter
--- OUTSIDE RECORDS SUMMARY | 2024-05-03 04:14 | XMS_ITS | Encounter Summary ---
Author Organization [facility] Address [address] [place] [address] Care Team Providers Care Mutual Fund Manager Name Role Phone Nolberto Nicole MD Primary Care Provider Isidro Heredia MD Unavailable [phone] Reason for Visit * Reason Comments Rheumatoid Arthritis pain scale: 7/10 am stiffness: all day tolerating meds well diarrhea:yes General since on the Rituxan her feels very building maintenance superintendent the inside, no temp, off and on chills, joint soreness including whole spine, not sleeoing well get up 3-4 times a night Fatigue * Consult, Test & Treat (Routine) - Closed Specialty Diagnoses / Procedures Referred By Contsarahi t Referred To Contact Diagnoses Rheumatoid arthritis(714.0) ([facility]) Procedures DC OFFICE VISIT DURING HOURS Nolberto Nicole MD [address] [place] [address] Isidro Heredia MD [address] [place] [address] Referral ID Status Reason Start Date Expiration Date Visits Re quested Visits Authorized [id number] Closed 07/02/2012 12/29/2012 1 6 Encounter Details Date Type Department Care Team (Late st Contact Info) Description 09/16/2012 5:00 PM CDT Office Visit [facility] - Rheumatology [address] [place] [address] sIidro Heredia MD [address] [facility] [place] [address] Rheumatoid arthritis (HCC) (Primary Dx); Chronic pain [...] Sign Reading Time Taken Comments Blood Pressure 110/84 09/16/2012 4:58 PM CDT Pulse 80 09/16/2012 4:58 PM CDT Temperature - - Respiratory Rate - - Oxygen Saturation - - Inhaled Oxygen Concentration - - Weight 113.6 kg (250 lb 6.4 oz) 09/16/2012 4:58 PM CDT Height - - Body Mass Index 35.93 09/02/2012 9:13 AM CDT documented in this encounter Progress Notes * Isidro Heredia MD - 09/16/2012 5:10 PM CDT Subjective: Chalino Deng 51 y.o. male is here for Chief Complaint Patient presents with ??? Rheumatoid Arthritis pain scale: 7/10 am stiffness: all day tolerating meds well diarrhea:yes ??? General since on the Rituxan her feels very building maintenance superintendent the inside, no temp, off and on chills, joint soreness including whole spine, not sleeoing well get up 3-4 times a night ??? Fatigue HPI:on mtx pred 20 mg/d for ra and percocet He had rituxan several weeks ago Feels very tired and sore all over but he did yard work quantiferon was pos as antipated as he was txed for latent tbc in 1987 rosaline insisted on the quantiferon Pain Level: 7/10 all over Am stiffness 2-3 hrs Global 7/10 Fatigue yes Medication Side Effects no Current Outpatient Prescriptions on File Prior to Visit Medication Sig Dispense Refill ??? oxycodone-acetaminophen (PERCOCET) 5-325 MG tablet Take 1 Tab by mouth every 6 hours as needed for Pain. 120 Tab 0 ??? naproxen (NAPROSYN) 500 MG tablet Take [...] 3 times daily. 270 Tab 1 ??? esomeprazole (NEXIUM) 40 MG capsule Take 1 Cap by mouth daily before breakfast. 90 Cap 3 ??? terbinafine (LAMISIL) 250 MG tablet Take 1 Tab by mouth once daily. 30 Tab 1 ??? fish oil/omega-3 fatty acids (FISH OIL) 1000 MG capsule Take 1,000 mg by mouth 2 times daily. ??? niacin, Immediate Release, 500 MG tablet Take 500 mg by mouth at bedtime. ??? Multiple Vitamin (MULTI-VITAMIN PO) Take by mouth once daily. ??? Ngwmyvlgkrq-Xgldoghcw-Gso C-Mn (GLUCOSAMINE CHONDR 1500 COMPLX PO) Take [...] ??? Subacromial bursitis ??? Chronic pain syndrome History Smoking status ??? Never Smoker Smokeless [...] Exam: wd wn wm in nad BP 110/84 Pulse 80 Wt 250 lb 6.4 oz (113.581 kg) Head: perrla, eyes no irritation, vision and [...] 5/SJ, 0/muscle tenderness or weakness LUE: 13/TJ, 5/SJ, /muscle tenderness or weakness RLE: 1/TJ, 1/SJ, 0/muscle tenderness or weakness LLE: 1/TJ, 1/SJ, 0/muscle tenderness or weakness Assessment: Encounter Diagnoses Name Primary? Rheumatoid arthritis ??? Chronic pain syndrome poorly controlled ra and chronic pain Same meds Plan: Plan No orders of the defined types were placed in this encounter. Follow up in office in 4 weeks * Rea Hagan MA - 09/16/2012 5:00 PM CDT Chief Complaint Patient presents with ??? Rheumatoid Arthritis pain scale: 7/10 am stiffness: all day tolerating meds well diarrhea:yes ??? General since on the Rituxan her feels very building maintenance superintendent the inside, no temp, off and on chills, joint soreness including whole spine, not sleeoing well get up 3-4 times a night ??? Fatigue BP 110/84 Pulse 80 Wt 250 lb 6.4 oz (113.581 kg) documented in this encounter Plan of Treatment Upcoming Encounters Date Type Department Care Team (Late st Contact Info) Description 06/03/2024 1:00 PM MOTION PICTURE CRITIC Appointment [facility] - Rheumatology [address] [place] [address] 06/03/2024 2:00 PM MOTION PICTURE CRITIC Office Visit [facility] - Rheumatology [address] [place] [address] Gloria Smith MD [address] [place] [phone] documented as of this encounter Visit Diagnoses Diagnosis Rheumatoid arthritis(714.0) (HCC)- Primary Rheumatoid arthritis Chronic pain syndrome documented in this encounter Care Teams Mutual Fund Manager Relationship Specialty Start Date End Date Nolberto Nicole MD PCP - General 07/21/08 12/30/13 Isidro Heredia MD Rheumatology 02/09/11 documented as of this encounter
--- OUTSIDE RECORDS SUMMARY | 2024-05-03 04:14 | XMS_ITS | Encounter Summary ---
Author Organization [facility] Address [address] [facility] [place] [address] Care Team Providers Care Practice Professional Name Role Phone Nolberto Nicole MD Primary Care Provider Isidro Heredia MD Unavailable [phone] Reason for Visit * Reason Comments Rheumatoid Arthritis * Consult, Test & Treat (Routine) - Closed Specialty Diagnoses / Procedures Referred By Contsarahi t Referred To Contact Diagnoses Rheumatoid arthritis(714.0) (HCC) Procedures NE OFFICE VISIT DURING HOURS Nolberto Nicole MD [address] [place] [address] Isidro Heredia MD [address] [place] [address] Referral ID Status Reason Start Date Expiration Date Visits Re quested Visits Authorized [id number] Closed 03/14/2013 09/11/2013 1 6 Encounter Details Date Type Department Care Team (Late st Contact Info) Description 07/09/2013 2:00 PM CDT Office Visit [facility] Medical [facility] - Rheumatology [address] [place] [address] Isidro Heredia MD [address] [place] [address] Rheumatoid arthritis (HCC) (Primary Dx); Chronic [...] Sign Reading Time Taken Comments Blood Pressure 122/82 07/09/2013 1:46 PM CDT Pulse 80 07/09/2013 1:46 PM CDT Temperature - - Respiratory Rate - - Oxygen Saturation - - Inhaled Oxygen Concentration - - Weight 65.3 kg (144 lb) 07/09/2013 1:46 PM CDT Height - - Body Mass Index 20.66 06/10/2013 2:00 PM ORIENTATION AND MOBILITY INSTRUCTOR documented in this encounter Progress Notes * Isidro Heredia MD - 07/09/2013 2:17 PM CDT Subjective: Chalino Deng 52 y.o. male is here for Chief Complaint Patient presents with ??? Rheumatoid Arthritis HPI: On mtx actemra pred 10 mg bid for ra and percocet for chronic pain Pain Level: 7/10 hands knees shoulders Am stiffness 2 hrs Global 8/10 Fatigue yes Medication Side Effects no Current Outpatient Prescriptions on File Prior to Visit Medication Sig Dispense Refill ??? rosuvastatin (CRESTOR) 5 MG tablet Take 1 Tab by mouth at bedtime. 30 Tab 11 ??? risedronate Sodium (ACTONEL) 150 MG tablet Take 1 Tab by mouth every 30 days. 3 Tab 3 ??? tocilizumab 20 MG/ML in NaCl 0.9 % 100 mL Pt to receive IV infusion Actemra 460mg/100cc 0.9%normal saline per Actemra protocol unless further orders received from Dr. Heredia. Order will expirein 1 year. 04/07/2014 ??? methotrexate 2.5 MG tablet Take 6 [...] PO) Take by mouth once daily. ??? Oxdvpmyvmhq-Noefqoxaz-Srx C-Mn (GLUCOSAMINE CHONDR 1500 COMPLX PO) Take by mouth once daily. ??? diclofenac [...] dysuria, frequency, urgency, kidney stones. MS: NEURO: He has Headaches again no seizures, dizziness, confusion, numbness, tingling HEME/LYMPH: No bruising or bleeding, swollen glands SKIN: No rash, itching, dry skin ENDO No Heat or cold intol, no hyper or hypoglycemia PSYCH: No memory loss, disorientation, confusion, mood changes, ALLERGY/IMMU No runny nose, tearing, sneezing, cough, eye irritation Systems reviewed genl heart lungs13 Objective: General Appearance Physical Exam: BP 122/82 Pulse 80 Wt 65.318 kg (144 lb) Head: perrla, eyes no irritation, vision [...] st Contact Info) Description 06/03/2024 1:00 PM ORIENTATION AND MOBILITY INSTRUCTOR Appointment [facility] - Rheumatology [address] [place] [address] 06/03/2024 2:00 PM ORIENTATION AND MOBILITY INSTRUCTOR Office Visit [facility] - Rheumatology [address] [place] [address] Gloria Smith MD [address] [place] [phone] documented as of this encounter Visit Diagnoses Diagnosis Rheumatoid arthritis(714.0) (HCC)- Primary Rheumatoid arthritis Chronic pain syndrome documented in this encounter Care Teams Practice Professional Relationship Specialty Start Date End Date Nolberto Nicole MD PCP - General 07/21/08 12/30/13 Isidro Heredia MD Rheumatology 02/09/11 documented as of this encounter
--- OUTSIDE RECORDS SUMMARY | 2024-05-03 04:14 | XMS_ITS | Encounter Summary ---
Author Organization [facility] Address [address] [facility] [place] [address] Care Team Providers Care Electric Fan Assembler Name Role Phone Nolberto Nicole MD Primary Care Provider Isidro Heredia MD Unavailable [phone] Reason for Referral * - Closed Specialty Diagnoses / Procedures Referred By Contac t Referred To Contact Diagnoses Pleurisy Abdominal pain Procedures CT THORAX ABDOMEN PELVIS W CONT Isidro Heredia MD [address] [place] [address] Referral ID Status Reason Start Date Expiration Date Visits Re quested Visits Authorized [id number] Closed 03/25/2013 09/21/2013 1 1 ESS CONTROL TECHNICIAN Reason for Visit * - Closed Specialty Diagnoses / Procedures Referred By Contac t Referred To Contact Diagnoses Pleurisy Abdominal pain Procedures CT THORAX ABDOMEN PELVIS W CONT Isidro Heredia MD [address] [place] [address] Referral ID Status Reason Start Date Expiration Date Visits Re quested Visits Authorized [id number] Closed 03/25/2013 09/21/2013 1 1 Encounter Details Date Type Department Care Team (Late st Contact Info) Description 03/25/2013 8:41 AM PROCESS CONTROL TECHNICIAN - 03/25/2013 11:59 PM PROCESS CONTROL TECHNICIAN Hospital Encounter [facility] Health Imaging Services - CT Scan [address] [place] [phone] Isidro Heredia MD [address] [facility] EST [place] [address] Discharge Disposition: Home or Self Care Social [...] Sig Dispensed Refills Start Date End Date Gwpumenuwta-Bkwuvuhrx-X it C-Mn (GLUCOSAMINE CHONDR 1500 COMPLX PO) [...] at bedtime. 01/14/2014 oxycodone-acetaminophen (PERCOCET) 5-325 MG tabletIndications:Rheum atoid arthritis(714.0) ([facility]) Take 1 Tab by mouth every 6 hours as needed for Pain. 120 Tab 0 03/21/2013 05/12/2013 predniSONE (DELTASONE) 10 MG tablet Take 1 Tab by mouth 2 times daily. 180 Tab 3 07/22/2012 07/17/2013 risedronate Sodium (ACTONEL) 150 MG tablet Take 1 Tab by mouth every 30 days. 3 Tab 3 08/29/2010 05/12/2013 rituximab (RITUXAN) 10 MG/ML injection Pt to receive IV infusion Rituxan 1000mg/150cc 0.9%normal saline, Benadryl 25mg (160lb or less) or 50mg (161lb or more)/10cc saline over 3 min IV push and Solumedrol 125mg/10cc saline over 3min IVP per Rituxan protocol unless further orders received from Dr. Heredia. Order will in 1 year. 12/25/2103 12/24/2012 04/11/2013 tamsulosin CR 24hr (FLOMAX) 0.4 MG capsule Take 1 Cap by mouth once daily. Take 30 minutes after a meal at the same time each day. 30 Cap 5 11/11/2012 08/12/2014 documented as of this encounter Progress Notes * Isidro Heredia MD - 03/30/2013 10:27 PM CSTQuick Note: Ct chest nl Ct abd benign diverticulosis ESS CONTROL TECHNICIAN documented in this encounter Plan of Treatment Upcoming Encounters Date Type Department Care Team (Late st Contact Info) Description 06/03/2024 1:00 PM PROCESS CONTROL TECHNICIAN Appointment [facility] - Rheumatology [address] [place] [address] 06/03/2024 2:00 PM PROCESS CONTROL TECHNICIAN Office Visit [facility] - Rheumatology [address] [place] [address] Gloria Smith MD [address] [place] [phone] documented as of this encounter Procedures Procedure Name Priority Date/Time Associated Diagnosis Comments CT CHEST ABDOMEN PELVIS W CONT Routine 03/25/2013 8:59 AM PROCESS CONTROL TECHNICIAN Pleurisy Abdominal pain documented in this encounter Results * CT THORAX ABDOMEN PELVIS W CONT (03/25/2013 8:59 AM PROCESS CONTROL TECHNICIAN) Anatomical Region Laterality Modality Chest, Abdomen, Pelvis Computed Tomography 03/25/2013 11:5 3 AM PROCESS CONTROL TECHNICIAN Narrative 03/25/2013 11:57 AM PROCESS CONTROL TECHNICIAN Examination: CT chest with contrast. Indication for [...] abnormality identified. Isidro Heredia MD CT ORDERABLES documented in this encounter Visit Diagnoses Diagnosis Pleurisy Abdominal pain documented in this encounter Administered Medications Inactive Administered Medications - up to 3 most recent administrations Medication Order MAR Action Action Date Dose Rate Site iohexol (OMNIPAQUE 350) contrast Intravenous, CONTRAST ONCE, Starting on Sun03/25/13 at 0859, Until Sun03/26/13 at 0117 $ Given 03/25/2013 8:59 AM PROCESS CONTROL TECHNICIAN 80 mL Right Arm documented in this encounter Care Teams Electric Fan Assembler Relationship Specialty Start Date End Date Nolberto Nicole MD PCP - General 07/21/08 12/30/13 Isidro Heredia MD Rheumatology 02/09/11 documented as of this encounter
--- OUTSIDE RECORDS SUMMARY | 2024-05-03 04:14 | XMS_ITS | Encounter Summary ---
Author Organization [facility] Address [address] [place] [address] Care Team Providers Care Ditch Worker Name Role Phone Nolberto Nicole MD Primary Care Provider [phone] Isidro Heredia MD Unavailable [phone] Reason for Visit * Treatment (Routine) - Closed Specialty Diagnoses / Procedures Referred By Lawrence shah Referred To Contact Infusion Therapy Nurse Diagnoses Rheumatoid arthritis(714.0) ([facility]) Procedures UT INJECTION TOCILIZUMAB 1 MG Isidro Heredia MD [address] [place] [address] Referral ID Status Reason Start Date Expiration Date Visits Re quested Visits Authorized [id number] Closed 03/07/2013 06/05/2013 1 5 Encounter Details Date Type Department Care Team (Late st Contact Info) Description 03/21/2013 12:50 PM MITERING MACHINE OPERATOR - 03/21/2013 11:59 PM MITERING MACHINE OPERATOR Hospital Encounter [facility] - Rheumatology [address] [place] [address] Isidro Heredia MD [address] [place] [address] Discharge Disposition: Home or Self [...] Sig Dispensed Refills Start Date End Date Gtjqzcrjrya-Adftuinbw-D it C-Mn (GLUCOSAMINE CHONDR 1500 COMPLX PO) [...] oxycodone-acetaminophen (PERCOCET) 5-325 MG tabletIndications:Rheum atoid arthritis(714.0) (HCC) [...] 11/11/2012 08/12/2014 documented as of this encounter Miscellaneous Notes * Miscellaneous Scans - Document, Scanned - 04/01/2013 10:03 PM CST RING MACHINE OPERATOR documented in this encounter Plan of Treatment Upcoming Encounters Date Type Department Care Team (Late st Contact Info) Description 06/03/2024 1:00 PM MITERING MACHINE OPERATOR Appointment [facility] - Rheumatology [address] [place] [address] 06/03/2024 2:00 PM MITERING MACHINE OPERATOR Office Visit [facility] - Rheumatology [address] [place] [address] Gloria Smith MD [address] [place] [phone] documented as of this encounter Visit Diagnoses Not on filedocumented in this encounter Care Teams Ditch Worker Relationship Specialty Start Date End Date Nolberto Nicole MD PCP - General 07/21/08 12/30/13 Isidro Heredia MD Rheumatology 02/09/11 documented as of this encounter
--- OUTSIDE RECORDS SUMMARY | 2024-05-03 04:14 | XMS_ITS | Encounter Summary ---
Author Organization [facility] Address [address] [place] [address] Care Team Providers Care Small Engine Technician Name Role Phone Nolberto Nicole MD Primary Care Provider [phone] Isidro Heredia MD Unavailable [phone] Reason for Visit * Treatment (Routine) - Closed Specialty Diagnoses / Procedures Referred By Lawrence shah Referred To Contact Infusion Therapy Nurse Diagnoses Rheumatoid arthritis(714.0) ([facility]) Procedures LA INJECTION TOCILIZUMAB 1 MG Isidro Heredia MD [address] [place] [address] Referral ID Status Reason Start Date Expiration Date Visits Re quested Visits Authorized [id number] Closed 05/01/2013 04/29/2014 1 12 Encounter Details Date Type Department Care Team (Late st Contact Info) Description 07/09/2013 1:30 PM CDT - 07/09/2013 11:59 PM CDT Hospital Encounter [facility] - Rheumatology [address] [place] [address] Isidro Heredia MD [address] [place] [address] Discharge Disposition: Home or Self [...] Sign Reading Time Taken Comments Blood Pressure 130/86 07/09/2013 1:58 PM CDT Pulse 117 07/09/2013 1:58 PM CDT Temperature 36.7 ??C (98.1 ??F) 07/09/2013 1:58 PM CD T Respiratory Rate 16 07/09/2013 1:58 PM CDT Oxygen Saturation - - Inhaled Oxygen Concentration - - Weight - - Height 177.8 cm (5' 10 ) 07/09/2013 1:58 PM CDT Body Mass Index - - documented in this encounter Discharge Instructions * Discharge Instructions* Carlos Foreman RN - 07/09/2013 2:04 PM CDT [place] Rheumatology Post Infusion instructions [...] through Sunday 9-5 call the office at [phone] After hours or on the weekend call the exchange at [phone] If you have had lab work done [...] chosen [facility] as your provider. Carlos Foreman RN * Discharge Instructions* Document, Scanned - 07/22/2013 4:41 PM CDT documented in this encounter Medications at Time of Discharge Medication Sig Dispensed Refills Start Date End Date Ocerfqpsgng-Fqzoukgzq-Pr t C-Mn (GLUCOSAMINE CHONDR 1500 COMPLX PO) [...] as needed for Pain. 120 Tab 0 07/09/2013 08/07/2013 predniSONE (DELTASONE) 10 MG tablet Take 1 [...] Progress Notes * Carlos Foreman RN - 07/09/2013 2:03 PM CDT JOSE Deng [id number] 07/09/2013 Diagnosis: Rheumatoid arthritis [714.0]. Patient questionnaire results Health Assessment Questionnaire MHBP 130/86 Pulse 117 Temp 98.1 ??F Resp 16 @ MEDICATIONS FOR CURRENT ENCOUNTER: ?? SCHEDULED MEDICATIONS: ?? tocilizumab (ACTEMRA) 480 mg in NaCl 0.9 % IVPB, Intravenous, Once ?? CONTINUOUS MEDICATIONS: PRN MEDICATIONS: ?? Number of 22 gauge 1 inch placed in Right hand ?? 1 attempt(s). Patient monitored throughout procedure. Tolerated well? Yes Next treatment? 4wk Carlos Foreman RN documented in this encounter Miscellaneous Notes * Miscellaneous Scans - Document, Scanned - 07/21/2013 11:10 PM CDT documented in this encounter Plan of Treatment Upcoming Encounters Date Type Department Care Team (Late st Contact Info) Description 06/03/2024 1:00 PM INFANT TODDLER LEAD TEACHER Appointment [facility] - Rheumatology [address] [place] [address] 06/03/2024 2:00 PM INFANT TODDLER LEAD TEACHER Office Visit [facility] - Rheumatology [address] [place], [place] [phone] Gloria Smith MD [address] [place] [phone] documented as of this encounter Visit Diagnoses Diagnosis Rheumatoid arthritis(714.0) ([facility])- Primary Rheumatoid arthritis documented in this encounter Administered Medications Inactive Administered Medications - up to 3 most recent administrations Medication Order MAR Action Action Date Dose Rate Site tocilizumab (ACTEMRA) 480 mg in NaCl 0.9 % IVPB 480 mg, at 100 mL/hr, Intravenous, ONCE, 1 dose, On Sun07/09/13 at 1345 $ Given 07/09/2013 2:02 PM CDT 480 mg 100 mL/hr documented in this encounter Care Teams Small Engine Technician Relationship Specialty Start Date End Date Nolberto Nicole MD PCP - General 07/21/08 12/30/13 Isidro Heredia MD Rheumatology 02/09/11 documented as of this encounter
--- OUTSIDE RECORDS SUMMARY | 2024-05-03 04:14 | XMS_ITS | Encounter Summary ---
Author Organization [facility] Address [address] [place] [address] Care Team Providers Care Hydraulic Tester Name Role Phone Nolberto Nicole MD Primary Care Provider [phone] Isidro Heredia MD Unavailable [phone] Encounter Details Date Type Department Care Team (Late st Contact Info) Description 07/09/2013 Orders Only [facility] - Rheumatology [address] [place] [address] Isidro Heredia MD [address] [place] [address] Rheumatoid arthritis (HCC) ; Other and unspecified hyperlipidemia Social History Tobacco [...] Progress Notes * Rea Hagan MA - 07/14/2013 11:10 AM CDTQuick Note: Sent lab letter to pt * Isidro Heredia MD - 07/13/2013 8:04 PM CDTQuick Note: Chol good 166 bs 114 ok mtx ok documented in this encounter Plan of Treatment Upcoming Encounters Date Type Department Care Team (Late st Contact Info) Description 06/03/2024 1:00 PM CHIEF OF SERVICE Appointment [facility] - Rheumatology [address] [place] [address] [phone] 06/03/2024 2:00 PM CHIEF OF SERVICE Office Visit [facility] - Rheumatology [address] [place] [address] Gloria Smith MD [address] [place] [phone] documented as of this encounter Procedures Procedure Name Priority Date/Time Associated Diagnosis Comments ERYTHROCYTE SEDIMENTATION RATE Routine 07/09/2013 1:30 PM CDT Rheumatoid Arthritis (Hcc) CBC W AUTO DIFFERENTIAL Routine 07/09/2013 1:30 PM CDT Rheumatoid Arthritis (Hcc) COMPREHENSIVE METABOLIC PANEL Routine 07/09/2013 1:30 PM CDT Rheumatoid Arthritis (Hcc) LIPID PROFILE Routine 07/09/2013 1:30 PM CDT Other And Unspecified Hyperlipidemia documented in this encounter Results * SED RATE AUTO (ESR) (07/09/2013 1:30 PM CDT) Erythrocyte Sedimentation Rate Westergren 19 0 - 30 mm/hr [facility] INSURANCE BILL Blood specimen (specimen) BLOOD SPECIMEN / Unknown 07/09/2013 1:30 PM CDT 07/09/2013 6:17 PM CDT Narrative Resulting Agency Comment [facility] [address] ??[facility] [id number] Isidro Heredia MD LAB - HEMATOLOGY OR DERABLES [facility] INSURANCE BILL * (ABNORMAL) COMPREHENSIVE METABOLIC PANEL (07/09/2013 1:30 PM CDT) Glucose 114(H) 65 - 99 mg/dL [facility] INSURANCE BILL BUN 19 6 - 24 mg/dL [facility] INSURANCE BILL Creatinine 1.00 0.76 - 1.27 mg/dL [facility] INSURANCE BILL eGFR by MDRD 87 >59 mL/min/1.7 3 [facility] INSURANCE BILL eGFR by MDRD 101 >59 mL/min/1.7 3 [facility] INSURANCE BILL BUN/Creatinine Ratio 19 9 - 20 [facility] INSURANCE BILL Sodium 140 134 - 144 mmol/L [facility] INSURANCE BILL Potassium 4.5 3.5 - 5.2 mmol/L [facility] INSURANCE BILL Chloride 103 97 - 108 mmol/L [facility] INSURANCE BILL CO2 22 19 - 28 mmol/L [facility] INSURANCE BILL Calcium 9.2 8.7 - 10.2 mg/dL [facility] INSURANCE BILL Protein Total 6.6 6.0 - 8.5 g/dL [facility] INSURANCE BILL Albumin 4.2 3.5 - 5.5 g/dL [facility] INSURANCE BILL Globulin Total 2.4 1.5 - 4.5 g/dL [facility] INSURANCE BILL Albumin/Globulin Ratio 1.8 1.1 - 2.5 [facility] INSURANCE BILL Bilirubin Total 0.5 0.0 - 1.2 mg/dL [facility] INSURANCE BILL Alkaline Phosphatase 69 39 - 117 IU/L [facility] INSURANCE BILL AST 20 0 - 40 IU/L [facility] INSURANCE BILL ALT 26 0 - 44 IU/L [facility] INSURANCE BILL Blood specimen (specimen) BLOOD SPECIMEN / Unknown 07/09/2013 1:30 PM CDT 07/09/2013 6:17 PM CDT Narrative Resulting Agency Comment [facility] [address] ??[facility] [id number] Isidro Heredia MD LAB - CHEMISTRY ORD ERABLES [facility] INSURANCE BILL * (ABNORMAL) CBC W AUTO DIFFERENTIAL (07/09/2013 1:30 PM CDT) WBC 10.9(H) 3.4 - 10.8 x10E3/uL [facility] INSURANCE BILL RBC 4.36 4.14 - 5.80 x10E6/uL [facility] INSURANCE BILL Hemoglobin 12.7 12.6 - 17.7 g/dL [facility] INSURANCE BILL Hematocrit 38.4 37.5 - 51.0 % [facility] INSURANCE BILL MCV 88 79 - 97 fL [facility] INSURANCE BILL MCH 29.1 26.6 - 33.0 pg [facility] INSURANCE BILL MCHC 33.1 31.5 - 35.7 g/dL [facility] INSURANCE BILL RDW 16.7(H) 12.3 - 15.4 % [facility] INSURANCE BILL Platelet Count 180 155 - 379 x10E3/uL [facility] INSURANCE BILL Granulocytes % 78(H) 40 - 74 % [facility] INSURANCE BILL Lymphocytes % 16 14 - 46 % [facility] INSURANCE BILL Monocytes % 5 4 - 12 % [facility] INSURANCE BILL Eosinophils % 1 0 - 5 % [facility] INSURANCE [...] Blood specimen (specimen) BLOOD SPECIMEN / Unknown 07/09/2013 1:30 PM CDT 07/09/2013 6:17 PM CDT Narrative Resulting Agency Comment [facility] [address] ??[facility] [id number] Isidro Heredia MD LAB - HEMATOLOGY OR DERABLES [facility] INSURANCE BILL * (ABNORMAL) LIPID PROFILE (LIPID PANEL) (07/09/2013 1:30 PM CDT) Cholesterol 166 100 - 199 mg/dL [facility] INSURANCE BILL Triglycerides 229(H) 0 - 149 mg/dL [facility] INSURANCE BILL HDL Cholesterol 55 >39 mg/dL [facility] INSURANCE BILL Comment: According to ATP-III Guidelines, HDL-C >59 mg/dL is considered a negative risk factor for CHD. VLDL Calculated 46(H) 5 - 40 mg/dL [facility] INSURANCE BILL LDL Calculated 65 0 - 99 mg/dL [facility] INSURANCE BILL Comment NOT NEEDED [facility] INSURANCE BILL Comment:Ancillary determined the test is not needed Blood specimen (specimen) BLOOD SPECIMEN / Unknown 07/09/2013 1:30 PM CDT 07/09/2013 6:17 PM CDT Narrative Resulting Agency Comment [facility] [address] ??[facility] [id number] Isidro Heredia MD LAB - CHEMISTRY ORD ERABLES [facility] INSURANCE BILL documented in this encounter Visit Diagnoses Diagnosis Rheumatoid arthritis(714.0) ([facility])- Primary Rheumatoid arthritis Other and unspecified hyperlipidemia documented in this encounter Care Teams Hydraulic Tester Relationship Specialty Start Date End Date Nolberto Nicole MD PCP - General 07/21/08 12/30/13 Isidro Heredia MD Rheumatology 02/09/11 documented as of this encounter
--- OUTSIDE RECORDS SUMMARY | 2024-05-03 04:14 | XMS_ITS | Encounter Summary ---
Author Organization [facility] Address [address] [place] [address] Care Team Providers Care Technical Account Manager Name Role Phone Nolberto Nicole MD Primary Care Provider [phone] Isidro Heredia MD Unavailable [phone] Reason for Visit * Treatment (Routine) - Closed Specialty Diagnoses / Procedures Referred By Lawrence shah Referred To Contact Infusion Therapy Nurse Diagnoses Rheumatoid arthritis(714.0) ([facility]) Procedures SD INJECTION TOCILIZUMAB 1 MG Isidro Heredia MD [address] [place] [address] Referral ID Status Reason Start Date Expiration Date Visits Re quested Visits Authorized [id number] Closed 05/01/2013 04/29/2014 1 12 Encounter Details Date Type Department Care Team (Late st Contact Info) Description 08/07/2013 1:28 PM CDT - 08/07/2013 11:59 PM CDT Hospital Encounter [facility] - Rheumatology [address] [place] [address] Isidro Heredia MD [address] [place] [address] Discharge Disposition: Home or Self [...] Reading Time Taken Comments Blood Pressure 130/80 08/07/2013 1:52 PM CDT Pulse 102 08/07/2013 1:52 PM CDT Temperature 36.8 ??C (98.3 ??F) 08/07/2013 1:52 PM CD T Respiratory Rate 16 08/07/2013 1:52 PM CDT Oxygen Saturation - - Inhaled Oxygen Concentration - - Weight 113.4 kg (250 lb) 08/07/2013 1:52 PM CDT Height 177.8 cm (5' 10 ) 08/07/2013 1:52 PM CDT Body Mass Index 35.87 08/07/2013 1:52 PM CDT documented in this encounter Discharge Instructions * Discharge Instructions* Camryn Marx RN - 08/07/2013 2:06 PM CDT [place] Rheumatology Post Infusion instructions You have received [...] through Sunday 9-5 call the office at [phone] After hours or on the weekend call the exchange at [phone] If you have had lab work done [...] [facility] as your provider. Camryn Marx RN * Discharge Instructions* Document, Scanned - 08/20/2013 10:42 PM CDT documented in this encounter Medications at Time of Discharge Medication Sig Dispensed Refills Start Date End Date Jvuwwtscsma-Avspxflmc-Jg t C-Mn (GLUCOSAMINE CHONDR 1500 COMPLX PO) [...] as needed for Pain. 120 Tab 0 08/07/2013 09/04/2013 predniSONE (DELTASONE) 10 MG tablet TAKE 1 [...] as of this encounter Progress Notes * Camryn Marx RN - 08/07/2013 2:09 PM CDT JOSE Deng [id number] 08/07/2013 Diagnosis: Rheumatoid arthritis [714.0]. BP 130/80 Pulse 102 Temp 98.3 ??F Resp 16 Wt 113.399 kg (250 lb) BMI 35.87 kg/m2 @ MEDICATIONS FOR CURRENT ENCOUNTER: ?? SCHEDULED MEDICATIONS: ?? Tocilizumab 80 mg, tocilizumab (ACTEMRA) 400 mg in NaCl 0.9 % IVPB, Intravenous, Once ?? CONTINUOUS MEDICATIONS: PRN MEDICATIONS: ?? Number of 22 gauge 1 inch placed in Left hand ?? 1 attempt(s). Patient monitored throughout procedure. Tolerated well? Yes Next treatment? 4 weeks Camryn Marx RN documented in this encounter Miscellaneous Notes * Miscellaneous Scans - Document, Scanned - 08/20/2013 11:03 PM CDT documented in this encounter Plan of Treatment Upcoming Encounters Date Type Department Care Team (Late st Contact Info) Description 06/03/2024 1:00 PM MANGLE CATCHER Appointment [facility] - Rheumatology [address] [place] [address] [phone] 06/03/2024 2:00 PM MANGLE CATCHER Office Visit [facility] - Rheumatology [address] [place] [address] Gloria Smith MD [address] [place] [phone] documented as of this encounter Visit Diagnoses Not on filedocumented in this encounter Administered Medications Inactive Administered Medications - up to 3 most recent administrations Medication Order MAR Action Action Date Dose Rate Site Tocilizumab 80 mg, tocilizumab (ACTEMRA) 400 mg in NaCl 0.9 % IVPB 480 mg, at 100 mL/hr, Intravenous, ONCE, 1 dose, On Gabriela 08/07/13 at 1345 $ Given 08/07/2013 1:45 PM CDT 480 mg 100 mL/hr documented in this encounter Care Teams Technical Account Manager Relationship Specialty Start Date End Date Nolberto Nicole MD PCP - General 07/21/08 12/30/13 Isidro Heredia MD Rheumatology 02/09/11 documented as of this encounter
--- OUTSIDE RECORDS SUMMARY | 2024-05-03 04:14 | XMS_ITS | Encounter Summary ---
Author Organization [facility] Address [address] [facility] [place] [address] Care Team Providers Care Gluer Machine Operator Name Role Phone Nolberto Nicole MD Primary Care Provider Isidro Heredia MD Unavailable [phone] Reason for Visit * Reason Comments Rheumatoid Arthritis Pain Joint more joint pain with severe cold weather. he has to take his Percocet regularly every 6 hr constantly to take the edge off General wants to discuss his labs from his pcp- elevated lipids and new medication * Consult, Test & Treat (Routine) - Closed Specialty Diagnoses / Procedures Referred By Lawrence shah Referred To Contact Diagnoses Rheumatoid arthritis(714.0) ([facility]) Procedures [place] OFFICE VISIT DURING HOURS Nolberto Nicole MD [address] [place] [address] Isidro Heredia MD [address] [place] [address] Referral ID Status Reason Start Date Expiration Date Visits Re quested Visits Authorized [id number] Closed 03/14/2013 09/11/2013 1 6 Encounter Details Date Type Department Care Team (Late st Contact Info) Description 06/10/2013 2:15 PM DENITRATOR Office Visit [facility] - Rheumatology [address] [place] [address] Isidro Heredia MD [address] [place] [address] Rheumatoid arthritis (HCC) (Primary Dx); Chronic pain syndrome; Hyperlipidemia Social History Tobacco Use Types Packs/Day Years [...] Time Taken Comments Blood Pressure 130/80 06/10/2013 2:17 PM DENITRATOR Pulse 88 06/10/2013 2:17 PM DENITRATOR Temperature - - Respiratory Rate - - Oxygen Saturation - - Inhaled Oxygen Concentration - - Weight 113.4 kg (250 lb) 06/10/2013 2:17 PM DENITRATOR Height - - Body Mass Index 35.87 06/10/2013 2:00 PM DENITRATOR documented in this encounter Progress Notes * Isidro Heredia MD - 06/10/2013 2:54 PM CST Subjective: Chalino Deng 52 y.o. male is here for Chief Complaint Patient presents with ??? Rheumatoid Arthritis ??? Pain Joint more joint pain with severe cold weather. he has to take his Percocet regularly every 6 hr constantly to take the edge off ??? General wants to discuss his labs from his pcp- elevated lipids and new medication HPI on mtx actemra and pred 10 mg bid for ra and percocet for chronic pain Pain Level: 7/10 hands knees Am stiffness 2 hrs Global 8/10 he may need to Fatigue yes Medication Side Effects no Current Outpatient Prescriptions on File Prior to Visit Medication Status Sig Dispense Refill ??? risedronate Sodium (ACTONEL) 150 MG tablet Active Take 1 Tab by mouth every 30 days. 3 Tab 3 ??? tocilizumab 20 MG/ML in NaCl 0.9 % 100 mL Active Pt to receive IV infusion Actemra 460mg/100cc 0.9%normal saline per Actemra protocol unless further orders received from Dr. Heredia. Order willexpire in 1 year. 04/07/2014 ??? methotrexate 2.5 [...] Active Take by mouth once daily. ??? Tyopuftsphv-Pxwbpvfgy-Ovt C-Mn (GLUCOSAMINE CHONDR 1500 COMPLX PO) Active [...] Last Rate Last Dose ??? tocilizumab (ACTEMRA) 460 mg in NaCl 0.9 % IVPB Completed 460 mg Intravenous Once Isidro Heredia MD 460 mg at 06/10/13 1403 Patient Active Problem List Diagnosis ??? Rheumatoid [...] lungs Objective: General Appearance Physical Exam: BP 130/80 Pulse 88 Wt 113.399 kg (250 lb) Head: perrla, [...] arthritis Yes ??? Chronic pain syndrome ??? Hyperlipidemia poorly controlled ra and chronic pain Same meds Add crestor for chol Plan: Plan Follow up in office in 4 weeks TRATOR documented in this encounter Plan of Treatment Upcoming Encounters Date Type Department Care Team (Late st Contact Info) Description 06/03/2024 1:00 PM DENITRATOR Appointment [facility] - Rheumatology [address] [place] [address] [phone] 06/03/2024 2:00 PM DENITRATOR Office Visit [facility] - Rheumatology [address] [place] [address] [phone] Gloria Smith MD [address] [place] [phone] documented as of this encounter Visit Diagnoses Diagnosis Rheumatoid arthritis(714.0) (HCC)- Primary Rheumatoid arthritis Chronic pain syndrome Hyperlipidemia Other and unspecified hyperlipidemia documented in this encounter Care Teams Gluer Machine Operator Relationship Specialty Start Date End Date Nolberto Nicole MD PCP - General 07/21/08 12/30/13 Isidro Heredia MD Rheumatology 02/09/11 documented as of this encounter
--- OUTSIDE RECORDS SUMMARY | 2024-05-03 04:14 | XMS_ITS | Encounter Summary ---
Author Organization [facility] Address [address] [place] [address] [place] [address] Care Team Providers Care Dock Clerk Name Role Phone Nolberto Nicole MD Primary Care Provider [phone] Isidro Heredia MD Unavailable [phone] Reason for Visit * Reason Onset Date Comments MEDICATION REFILL 06/25/2013 Encounter Details Date Type Department Care Team (Late st Contact Info) Description 06/25/2013 Refill [facility] - Rheumatology [address] [place] [address] Isidro Heredia MD [address] [place] [address] MEDICATION REFILL Social History Tobacco Use [...] Telephone Encounter - Rea Hagan MA - 06/25/2013 9:23 AM CST Received a fax from [facility] requesting alternate cholesterol medication for Crestor. Crestor is not on formulary. Change to Zocor 20 mg daily. Faxed over to [phone] and received confirmation. FACTURING SR ENGINEER documented in this encounter Plan of Treatment Upcoming Encounters Date Type Department Care Team (Late st Contact Info) Description 06/03/2024 1:00 PM MANUFACTURING SR ENGINEER Appointment [facility] - Rheumatology [address] [place] [address] [phone] 06/03/2024 2:00 PM MANUFACTURING SR ENGINEER Office Visit [facility] - Rheumatology [address] [place] [address] [phone] Gloria Smith MD [address] [place] [phone] documented as of this encounter Visit Diagnoses Not on filedocumented in this encounter Care Teams Dock Clerk Relationship Specialty Start Date End Date Nolberto Nicole MD PCP - General 07/21/08 12/30/13 Isidro Heredia MD Rheumatology 02/09/11 documented as of this encounter
--- OUTSIDE RECORDS SUMMARY | 2024-05-03 04:14 | XMS_ITS | Encounter Summary ---
Author Organization [facility] Address [address] [place] [address] Care Team Providers Care Fire Code Inspector Name Role Phone Nolberto Nicole MD Primary Care Provider [phone] Isidro Heredia MD Unavailable [phone] Reason for Visit * Treatment (Routine) - Closed Specialty Diagnoses / Procedures Referred By Lawrence shah Referred To Contact Infusion Therapy Nurse Diagnoses Rheumatoid arthritis(714.0) ([facility]) Procedures SD INJECTION TOCILIZUMAB 1 MG Isidro Heredia MD [address] [facility] [place] [address] Referral ID Status Reason Start Date Expiration Date Visits Re quested Visits Authorized [id number] Closed 03/07/2013 06/05/2013 1 5 Encounter Details Date Type Department Care Team (Late st Contact Info) Description 04/11/2013 9:14 AM HAND GRINDER - 04/11/2013 11:59 PM HAND GRINDER Hospital Encounter [facility] - Rheumatology [address] [place] [phone] Isidro Heredia MD [address] [place] [address] Discharge Disposition: Home or Self [...] Sign Reading Time Taken Comments Blood Pressure 133/86 04/11/2013 9:34 AM HAND GRINDER Pulse 103 04/11/2013 9:34 AM HAND GRINDER Temperature 36.7 ??C (98.1 ??F) 04/11/2013 9:34 AM CS T Respiratory Rate 16 04/11/2013 9:34 AM HAND GRINDER Oxygen Saturation - - Inhaled Oxygen Concentration - - Weight 113.4 kg (250 lb) 04/11/2013 9:34 AM HAND GRINDER Height 177.8 cm (5' 10 ) 04/11/2013 9:34 AM HAND GRINDER Body Mass Index 35.87 04/11/2013 9:34 AM HAND GRINDER documented in this encounter Discharge Instructions * Discharge Instructions* Mirela Rodrigez, RN - 04/11/2013 9:51 AM HAND GRINDER [place] Rheumatology Post Infusion instructions You have [...] through Sunday 9-5 call the office at [phone] After hours or on the weekend call the exchange at [phone] If you have had lab work done [...] chosen [facility] as your provider. Mirela Rodrigez RN GRINDER * Discharge Instructions* Document, Scanned - 04/21/2013 8:34 PM HAND GRINDER GRINDER documented in this encounter Medications at Time of Discharge Medication Sig Dispensed Refills Start Date End Date Cunrdfbtnoc-Jhowipqyf-Vb t C-Mn (GLUCOSAMINE CHONDR 1500 COMPLX PO) [...] oxycodone-acetaminophen (PERCOCET) 5-325 MG tabletIndications:Rheuma toid arthritis(714.0) (HCC) Take 1 Tab by mouth every 6 hours as needed for Pain. 120 Tab 0 03/21/2013 05/12/2013 predniSONE (DELTASONE) 10 MG tablet Take 1 Tab by mouth 2 times daily. 180 Tab 3 07/22/2012 07/17/2013 risedronate Sodium (ACTONEL) 150 MG tablet Take 1 Tab by mouth every 30 days. 3 Tab 3 08/29/2010 05/12/2013 tamsulosin CR 24hr (FLOMAX) 0.4 MG capsule [...] Progress Notes * Mirela Rodrigez RN - 04/11/2013 9:48 AM CST JOSE Deng [id number] 04/11/2013 BP 133/86 Pulse 103 Temp 98.1 ??F Resp 16 Wt 113.399 kg (250 lb) BMI 35.87 kg/m2 Patient received: ?? 460 mgIV of Actemra and 30 cc normal saline given over 60 minutes. ?? Number of 22 gauge 1 inch placed in Left antecubital ?? 1 attempt(s). 1-400mg vial and 1-80mg vial with 20mg wasted Patient monitored throughout procedure. Tolerated well? Yes Next treatment? 4 weeks Mirela Rodrigez RN GRINDER documented in this encounter Miscellaneous Notes * Miscellaneous Scans - Document, Scanned - 04/21/2013 8:33 PM CST GRINDER documented in this encounter Plan of Treatment Upcoming Encounters Date Type Department Care Team (Late st Contact Info) Description 06/03/2024 1:00 PM HAND GRINDER Appointment [facility] - Rheumatology [address] [place] [address] 06/03/2024 2:00 PM HAND GRINDER Office Visit [facility] - Rheumatology [address] [place] [phone] Gloria Smith MD [address] [place] [phone] documented as of this encounter Visit Diagnoses Not on filedocumented in this encounter Administered Medications Inactive Administered Medications - up to 3 most recent administrations Medication Order MAR Action Action Date Dose Rate Site tocilizumab (ACTEMRA) 460 mg in NaCl 0.9 % IVPB 460 mg, at 100 mL/hr, Intravenous, ONCE, 1 dose, On Sun04/11/13 at 0945 $ Given 04/11/2013 9:48 AM HAND GRINDER 460 mg 100 mL/hr documented in this encounter Care Teams Fire Code Inspector Relationship Specialty Start Date End Date Nolberto Nicole MD PCP - General 07/21/08 12/30/13 Isidro Heredia MD Rheumatology 02/09/11 documented as of this encounter
--- OUTSIDE RECORDS SUMMARY | 2024-05-03 04:14 | XMS_ITS | Encounter Summary ---
Author Organization [facility] Address [address] [place] [address] Care Team Providers Care Bobbin Dumper Name Role Phone Nolberto Nicole MD Primary Care Provider [phone] Isidro Heredia MD Unavailable [phone] Reason for Visit * Reason Comments Rheumatoid Arthritis pain scale:9/10 am stiffness: 3 hrs toelrating meds well no abdominal pain Pain Joint all over. especially his ankles. very hard to stand and walk due to severe stiffness in the ankles. Pain Muscle all over Letter wants time off work due to Ra flare Pain Neck * Evaluate & Treat (Routine) - Closed Specialty Diagnoses / Procedures Referred By Lawrence shah Referred To Contact Diagnoses Rheumatoid arthritis(714.0) ([facility]) Procedures [place] OFFICE VISIT DURING HOURS Nolberto Nicole MD [address] [place] [address] Isidro Heredia MD [address] [place] [address] Referral ID Status Reason Start Date Expiration Date Visits Re quested Visits Authorized [id number] Closed 08/15/2012 02/11/2013 1 5 Encounter Details Date Type Department Care Team (Late st Contact Info) Description 10/14/2012 5:00 PM CDT Office Visit [facility] - Rheumatology [address] [place] [address] Isidro Heredia MD [facility] [place] [id number] Rheumatoid arthritis (HCC) (Primary Dx); Chronic pain [...] - Inhaled Oxygen Concentration - - Weight 113.9 kg (251 lb) 10/14/2012 5:13 PM CDT Height - - Body Mass Index 36.01 09/02/2012 9:13 AM CDT documented in this encounter Progress Notes * Yamileth Rodríguez MA - 2012 10:08 AM CDTQuick Note: Letter mailed to patient regarding lab results. * Isidro Heredia MD - 10/19/2012 9:53 PM CDTQuick Note: mtx ok * Isidro Heredia MD - 10/14/2012 5:29 PM CDT Subjective: Chalino Deng 51 y.o. male is here for Chief Complaint Patient presents with ??? Rheumatoid Arthritis pain scale:9 am stiffness: 3 hrs toelrating meds well no abdominal pain ??? Pain Joint all over. especially his ankles. very hard to stand and walk due to severe stiffness in the ankles. ??? Pain Muscle all over ??? Letter wants time off work due to Ra flare ??? Pain Neck HPI: On mtx And recent 1st rituxan for ra and percocet skelaxin and naprosyn for chronic pain Pain Level: 8 ankles hands shoulders neck back Am stiffness 1 hr Global 8 Fatigue yes Medication Side Effects no Current Outpatient Prescriptions on File Prior to Visit Medication Sig Dispense Refill ??? naproxen (NAPROSYN) 500 MG tablet Take [...] PO) Take by mouth once daily. ??? Piugwdlkmpt-Ptyytxtmp-Ngs C-Mn (GLUCOSAMINE CHONDR 1500 COMPLX PO) Take [...] Appearance Physical Exam: wdwn wm in nad Wt 113.853 kg (251 lb) Head: perrla, eyes no irritation, vision [...] 0/muscle tenderness or weakness RLE: 1/TJ, 1/SJ, 10/muscle tenderness or weakness LLE: 1/TJ, 1/SJ, 0 /muscle tenderness or weakness Assessment: Encounter Diagnoses Name Primary? Rheumatoid arthritis Yes ??? Chronic pain syndrome Poorly controlled ra and chronic pain Same meds Plan: Plan Orders Placed This Encounter ??? CBC W AUTO DIFFERENTIAL ??? COMPREHENSIVE METABOLIC PANEL ??? C-REACTIVE PROTEIN ??? SED RATE WESTERGREN ??? oxycodone-acetaminophen (PERCOCET) 5-325 MG tablet Sig: Take 1 Tab by mouth every 6 hours as needed for Pain. Dispense: 120 Tab Refill: 0 ??? esomeprazole (NEXIUM) 40 MG capsule Sig: Take 1 Cap by mouth daily before breakfast. Dispense: 90 Cap Refill: 3 Follow up in office in 4 weeks * Rea Hagan MA - 10/14/2012 5:25 PM CDT Chief Complaint Patient presents with ??? Rheumatoid Arthritis pain scale:9/10 am stiffness: 3 hrs toelrating meds well no abdominal pain ??? Pain Joint all over. especially his ankles. very hard to stand and walk due to severe stiffness in the ankles. ??? Pain Muscle all over ??? Letter wants time off work due to Ra flare ??? Pain Neck Wt 113.853 kg (251 lb) documented in this encounter Plan of Treatment Upcoming Encounters Date Type Department Care Team (Late st Contact Info) Description 06/03/2024 1:00 PM HUMAN RESOURCES SUPERVISOR Appointment [facility] - Rheumatology [address] [place] [address] 06/03/2024 2:00 PM HUMAN RESOURCES SUPERVISOR Office Visit [facility] - Rheumatology [address] [place] [address] Gloria Smith MD [address] [place] [phone] documented as of this encounter Procedures Procedure Name Priority Date/Time Associated Diagnosis Comments C-REACTIVE PROTEIN Routine 10/14/2012 5: 46 PM CDT Rheumatoid arthritis (HCC) ERYTHROCYTE SEDIMENTATION RATE Routine 10/14/2012 5:46 PM CDT Rheumatoid arthritis (HCC) CBC W AUTO DIFFERENTIAL Routine 10/14/2012 5:46 PM CDT Rheumatoid arthritis (HCC) COMPREHENSIVE METABOLIC PANEL Routine 10/14/2012 5:46 PM CDT Rheumatoid arthritis (HCC) documented in this encounter Results * SED RATE WESTERGREN (10/14/2012 5:46 PM CDT) Erythrocyte Sedimentation Rate Westergren 14 0 - 15 mm/hr [facility] ACCOUNT BILL Blood specimen (specimen) BLOOD SPECIMEN / Unknown 10/14/2012 5:46 PM CDT 10/14/2012 7:28 PM CDT Narrative Resulting Agency Comment [facility] [place] [address] [facility] ??[facility] [phone] Isidro Heredia MD LAB - HEMATOLOGY OR DERABLES [facility] ACCOUNT BILL * (ABNORMAL) C-REACTIVE PROTEIN (10/14/2012 5:46 PM CDT) C-Reactive Protein 8.4(H) 0.0 - 4.9 mg/L [facility] ACCOUNT BILL Blood specimen (specimen) BLOOD SPECIMEN / Unknown 10/14/2012 5:46 PM CDT 10/14/2012 7:28 PM CDT Narrative Resulting Agency Comment [facility] ??[facility] [phone] Isidro Heredia MD LAB - CHEMISTRY ORD ERABLES Performing Organization Address City/[facility]/ZIP Co de Phone Number [facility] ACCOUNT BILL * (ABNORMAL) COMPREHENSIVE METABOLIC PANEL (10/14/2012 5:46 PM CDT) Glucose 102(H) 65 - 99 mg/dL [facility] ACCOUNT BILL BUN 21 6 - 24 mg/dL [facility] ACCOUNT BILL Creatinine 0.96 0.76 - 1.27 mg/dL [facility] ACCOUNT BILL eGFR by MDRD 92 >59 mL/min/1.7 3 [facility] ACCOUNT BILL eGFR by MDRD 107 >59 mL/min/1.7 3 [facility] ACCOUNT BILL BUN/Creatinine Ratio 22(H) 9 - 20 [facility] ACCOUNT BILL Sodium 139 134 - 144 mmol/L [facility] ACCOUNT BILL Potassium 4.4 3.5 - 5.2 mmol/L [facility] ACCOUNT BILL Chloride 104 97 - 108 mmol/L [facility] ACCOUNT BILL CO2 20 19 - 28 mmol/L [facility] ACCOUNT BILL Comment:Please note refere nce interval change Calcium 9.1 8.7 - 10.2 mg/dL [facility] ACCOUNT BILL Protein Total 6.9 6.0 - 8.5 g/dL [facility] ACCOUNT BILL Albumin 4.0 3.5 - 5.5 g/dL [facility] ACCOUNT BILL Globulin Total 2.9 1.5 - 4.5 g/dL [facility] ACCOUNT BILL Albumin/Globulin Ratio 1.4 1.1 - 2.5 [facility] ACCOUNT BILL Bilirubin Total 0.3 0.0 - 1.2 mg/dL [facility] ACCOUNT BILL Alkaline Phosphatase 107 25 - 150 IU/L [facility] ACCOUNT BILL AST 24 0 - 40 IU/L [facility] ACCOUNT BILL ALT 21 0 - 44 IU/L [facility] ACCOUNT BILL Blood specimen (specimen) BLOOD SPECIMEN / Unknown 10/14/2012 5:46 PM CDT 10/14/2012 7:28 PM CDT Narrative Resulting Agency Comment [facility] [address] ??[facility] [phone] Isidro Heredia MD LAB - CHEMISTRY ORD ERABLES [facility] ACCOUNT BILL * (ABNORMAL) CBC W AUTO DIFFERENTIAL (10/14/2012 5:46 PM CDT) WBC 7.4 4.0 - 10.5 x10E3/uL [facility] ACCOUNT BILL RBC 4.43 4.14 - 5.80 x10E6/uL [facility] ACCOUNT BILL Hemoglobin 12.5(L) 12.6 - 17.7 g/dL [facility] ACCOUNT BILL Hematocrit 38.8 37.5 - 51.0 % [facility] ACCOUNT BILL MCV 88 79 - 97 fL [facility] ACCOUNT BILL MCH 28.2 26.6 - 33.0 pg [facility] ACCOUNT BILL MCHC 32.2 31.5 - 35.7 g/dL [facility] ACCOUNT BILL RDW 15.5(H) 12.3 - 15.4 % [facility] ACCOUNT BILL Platelet Count 222 140 - 415 x10E3/uL [facility] ACCOUNT BILL Granulocytes % 53 40 - 74 % [facility] ACCOUNT BILL Lymphocytes % 35 14 - 46 % [facility] ACCOUNT BILL Monocytes % 8 4 - 13 % [facility] ACCOUNT BILL Eosinophils % 3 0 - 7 % [facility] ACCOUNT BILL Basophils % 1 0 - 3 % [facility] ACCOUNT BILL Immature Cells NOT NEEDED [facility] ACCOUNT BILL Comment:Ancillary determined the test is not needed Granulocytes Absolute 3.9 1.8 - 7.8 x10E3/uL [facility] ACCOUNT BILL Lymphocytes Absolute 2.6 0.7 - 4.5 x10E3/uL [facility] ACCOUNT BILL Monocytes Absolute 0.6 0.1 - 1.0 x10E3/uL [facility] ACCOUNT BILL Eosinophils Absolute 0.2 0.0 - 0.4 x10E3/uL [facility] ACCOUNT BILL Basophils Absolute 0.1 0.0 - 0.2 x10E3/uL [facility] ACCOUNT BILL Immature Granulocytes 0 0 - 2 % [facility] ACCOUNT BILL Immature Granulocytes Absolute 0.0 0.0 - 0.1 x10E3/uL [facility] ACCOUNT BILL nRBC NOT NEEDED [facility] ACCOUNT BILL Comment:Ancillary determined the test is not needed Comment Hematology NOT NEEDED [facility] ACCOUNT BILL Comment:Ancillary determined the test is not needed Blood specimen (specimen) BLOOD SPECIMEN / Unknown 10/14/2012 5:46 PM CDT 10/14/2012 7:28 PM CDT Narrative Resulting Agency Comment [facility] [address] ??[facility] [phone] Isidro Heredia MD LAB - HEMATOLOGY OR DERABLES [facility] ACCOUNT BILL documented in this encounter Visit Diagnoses Diagnosis Rheumatoid arthritis(714.0) (HCC)- Primary Rheumatoid arthritis Chronic pain syndrome documented in this encounter Care Teams Bobbin Dumper Relationship Specialty Start Date End Date Nolberto Nicole MD PCP - General 07/21/08 12/30/13 Isidro Heredia MD Rheumatology 02/09/11 documented as of this encounter
--- OUTSIDE RECORDS SUMMARY | 2024-05-03 04:14 | XMS_ITS | Encounter Summary ---
Author Organization [facility] Address [address] [place] [address] Care Team Providers Care Computer Application Developer Name Role Phone Nolberto Nicole MD Primary Care Provider [phone] Isidro Heredia MD Unavailable Encounter Details Date Type Department Care Team (Late st Contact Info) Description 08/19/2012 12:39 PM CDT - 08/19/2012 11:59 PM CDT Hospital Encounter [facility] Medical [facility] - Rheumatology [address] [place] [address] Isidro Heredia MD [address] [place] [address] Discharge Disposition: Home or Self Care [...] Sign Reading Time Taken Comments Blood Pressure 121/75 08/19/2012 4:47 PM CDT Pulse 88 08/19/2012 4:47 PM CDT Temperature 36.9 ??C (98.5 ??F) 08/19/2012 4:47 PM CD T Respiratory Rate 16 08/19/2012 12:53 PM CDT Oxygen Saturation - - Inhaled Oxygen Concentration - - Weight 106.6 kg (235 lb) 08/19/2012 12:53 PM CDT Height 177.8 cm (5' 10 ) 08/19/2012 12:53 PM CDT Body Mass Index 33.72 08/19/2012 12:53 PM CDT documented in this encounter Discharge Instructions * Discharge Instructions* Carlos Foreman RN - 08/19/2012 1:01 PM CDT [facility] Post Infusion instructions You have received [...] through Sunday 9-5 call the office at [phone] After hours or on the weekend call the exchange at [phone] If you have had lab work done [...] [facility]. Carlos Foreman RN * Discharge Instructions* Document, Scanned - 09/02/2012 5:20 PM CDT documented in this encounter Medications at Time of Discharge Medication Sig Dispensed Refills Start Date End Date Tcwdyygkhco-Pqfptyhje-Ny t C-Mn (GLUCOSAMINE CHONDR 1500 COMPLX PO) [...] mouth daily before breakfast. 90 Cap 3 08/07/2011 10/14/2012 fish oil/omega-3 fatty acids (FISH OIL) 1000 MG capsule Take 1,000 mg by mouth 2 times daily. 01/07/2015 metaxalone (SKELAXIN) 800 MG tablet Take 1 Tab by mouth 3 times daily. 270 Tab 1 03/11/2012 11/12/2013 methotrexate 2.5 MG tablet Take 6 Tabs by mouth every 7 days. 72 Tab 3 07/22/2012 03/17/2013 naproxen (NAPROSYN) 500 MG tablet Take 1 Tab by mouth 2 times daily. 180 Tab 3 08/19/2012 06/08/2014 niacin, Immediate Release, 500 MG tablet Take 500 mg by mouth at bedtime. 01/14/2014 oxycodone-acetaminophen (PERCOCET) 5-325 MG tabletIndications:Rheuma toid arthritis(714.0) (HCC) Take 1 Tab by mouth every 6 hours as needed for Pain. 120 Tab 0 08/19/2012 10/14/2012 predniSONE (DELTASONE) 10 MG tablet Take 1 Tab by mouth 2 times daily. 180 Tab 3 07/22/2012 07/17/2013 risedronate Sodium (ACTONEL) 150 MG tablet Take 1 Tab by mouth every 30 days. 3 Tab 3 08/29/2010 05/12/2013 tamsulosin CR 24hr (FLOMAX) 0.4 MG capsule Take 0.4 mg by mouth once daily. Take 30 minutes after a meal at the same time each day. 09/02/2012 terbinafine (LAMISIL) 250 MG tablet Take 1 Tab by mouth once daily. 30 Tab 1 05/15/2011 12/26/2012 documented as of this encounter Progress Notes * Carlos Foreman RN - 08/19/2012 1:02 PM CDT JOSE Chalino Deng [id number] 08/19/2012 Patient questionnaire results Health Assessment Questionnaire MHAQ: Pain: Global: Rapid 3: Sleep: GI: Fatigue: BP 121/73 Pulse 87 Temp 98.6 ??F Resp 16 Wt 106.595 kg (235 lb) BMI 33.72 kg/m2 1ST Rituxan Treatment. Patient received: ?? 1000 mgIV of Rituxan and 150 cc normal saline given over 240 minutes. ?? Number of 22 gauge 1 inch placed in Left antecubital ?? 1 attempt(s). Patient monitored throughout procedure. Tolerated well? Yes Next treatment? 2wks Carlos Foreman RN documented in this encounter Miscellaneous Notes * Miscellaneous Scans - Document, Scanned - 09/02/2012 4:49 PM CDT documented in this encounter Plan of Treatment Upcoming Encounters Date Type Department Care Team (Late st Contact Info) Description 06/03/2024 1:00 PM AUTO ELECTRICIAN Appointment [facility] - Rheumatology [address] [place] [address] 06/03/2024 2:00 PM AUTO ELECTRICIAN Office Visit [facility] - Rheumatology [address] [place] [address] Gloria Smith MD [address] [place] [phone] documented as of this encounter Visit Diagnoses Not on filedocumented in this encounter Administered Medications Inactive Administered Medications - up to 3 most recent administrations Medication Order MAR Action Action Date Dose Rate Site diphenhydrAMINE (BENADRYL) injection 50 mg 50 mg, Intravenous, ONCE, 1 dose, On 08/19/12 at 1315, Max intravenous rate = 25 mg/min $ Given 08/19/2012 12:50 PM CDT 50 mg methylPREDNISolone sod succ (Solu-MEDROL) injection 125 mg 125 mg, Intravenous, ONE TIME, 1 dose, Starting on Sun08/19/12 at 1315, Until Sun08/19/12 at 1300 $ Given 08/19/2012 1:00 PM CDT 125 mg rituximab (RITUXAN) 1,000 mg in NaCl 0.9 % infusion 1,000 mg, Intravenous, ONCE, 1 dose, On Sun08/19/12 at 1400, Stable for 24 hours refrigerate; 48 hours at room temperature . WASTE DISPOSAL INSTRUCTIONS: Chemo Bin Disposal required. . $ Given 08/19/2012 1:15 PM CDT 1,000 mg documented in this encounter Care Teams Computer Application Developer Relationship Specialty Start Date End Date Nolberto Nicole MD PCP - General 07/21/08 12/30/13 Isidro Heredia MD Rheumatology 02/09/11 documented as of this encounter
--- OUTSIDE RECORDS SUMMARY | 2024-05-03 04:14 | XMS_ITS | Encounter Summary ---
Author Organization [facility] Address [address] [place] [address] Care Team Providers Care Starch Dumper Name Role Phone Nolberto Nicole MD Primary Care Provider Isidro Heredia MD Unavailable [phone] Reason for Visit * Reason Comments Rheumatoid Arthritis pain scle:8/10 am s tiffness: no tolerating meds well no fever/chill Shoulder Pain pain scle:9/10 Swelling Hand with shooting pain Pain Knee obdulia with shooting pa in * Evaluate & Treat (Routine) - Closed Specialty Diagnoses / Procedures Referred By Lawrence shah Referred To Contact Diagnoses Rheumatoid arthritis(714.0) ([facility]) Procedures [place] OFFICE VISIT DURING HOURS Nolberto Nicole MD [address] [place] [address] Isidro Heredia MD [address] [place] [address] Referral ID Status Reason Start Date Expiration Date Visits Re quested Visits Authorized [id number] Closed 08/15/2012 02/11/2013 1 5 Encounter Details Date Type Department Care Team (Late st Contact Info) Description 12/09/2012 5:00 PM CDT Office Visit [facility] - Rheumatology [address] [place] [address] Isidro Heredia MD [facility] [place] [address] Rheumatoid arthritis (HCC) (Primary Dx); Chronic pain [...] Sign Reading Time Taken Comments Blood Pressure 136/82 12/09/2012 5:09 PM CDT Pulse 80 12/09/2012 5:09 PM CDT Temperature - - Respiratory Rate - - Oxygen Saturation - - Inhaled Oxygen Concentration - - Weight 112.9 kg (249 lb) 12/09/2012 5:09 PM CDT Height - - Body Mass Index 35.73 09/02/2012 9:13 AM CDT documented in this encounter Progress Notes * Rea Hagan MA - 12/19/2012 3:44 PM CDTQuick Note: Sent lab letter to pt * Isidro Heredia MD - 12/19/2012 9:35 AM CDTQuick Note: [facility]bc sl inc Rest of labs ok * Isidro Heredia MD - 12/09/2012 5:35 PM CDT Subjective: Chalino Deng 52 y.o. male is here for Chief Complaint Patient presents with ??? Rheumatoid Arthritis pain scle:8/10 am stiffness: no tolerating meds well no fever/chill ??? Shoulder Pain pain scle:9/10 ??? Swelling Hand with shooting pain ??? Pain Knee obdulia with shooting pain HPI: On mtx pred 10 mg bid for ra and percocet for chronic pain Trying to get rituxan moved up Pain Level: 9 right shoulder Am stiffness 2-3 Global hrs/10 Fatigue yes Medication Side Effects no feels better after 10 days offf Current Outpatient Prescriptions on File Prior to Visit Medication Sig Dispense Refill ??? tamsulosin CR 24hr (FLOMAX) 0.4 MG [...] PO) Take by mouth once daily. ??? Jgzdxwzymio-Fgoywrcwq-Xav C-Mn (GLUCOSAMINE CHONDR 1500 COMPLX PO) Take [...] Exam: wd wn wm in nad BP 136/82 Pulse 80 Wt 112.946 kg (249 lb) Head: perrla, eyes no irritation, vision [...] 13/TJ, 5/SJ, 0/muscle tenderness or weakness LUE: 13 /TJ, 6/SJ, 0/muscle tenderness or weakness RLE: 1/TJ, 1/SJ, 0/muscle tenderness or weakness LLE: 1 /TJ, 1/SJ, 0/muscle tenderness or weakness Assessment: Encounter [...] 4 weeks * Rea Hagan MA - 12/09/2012 5:09 PM CDT Chief Complaint Patient presents with ??? Rheumatoid Arthritis pain scle:8/10 am stiffness: no tolerating meds well no fever/chill ??? Shoulder Pain pain scle:9/10 ??? Swelling Hand with shooting pain ??? Pain Knee obdulia with shooting pain BP 136/82 Pulse 80 Wt 112.946 kg (249 lb) documented in this encounter Plan of Treatment Upcoming Encounters Date Type Department Care Team (Late st Contact Info) Description 06/03/2024 1:00 PM SSIS ETL DEVELOPER Appointment [facility] - Rheumatology [address] [place] [phone] 06/03/2024 2:00 PM SSIS ETL DEVELOPER Office Visit [facility] - Rheumatology [address] [place] [phone] Gloria Smith MD [address] [place] [phone] documented as of this encounter Procedures Procedure Name Priority Date/Time Associated Diagnosis Comments C-REACTIVE PROTEIN Routine 12/09/2012 5: 49 PM CDT Rheumatoid arthritis (HCC) ERYTHROCYTE SEDIMENTATION RATE Routine 12/09/2012 5:49 PM CDT Rheumatoid arthritis (HCC) CBC W AUTO DIFFERENTIAL Routine 12/09/2012 5:49 PM CDT Rheumatoid arthritis (HCC) COMPREHENSIVE METABOLIC PANEL Routine 12/09/2012 5:49 PM CDT Rheumatoid arthritis (HCC) documented in this encounter Results * SED RATE WESTERGREN (12/09/2012 5:49 PM CDT) Erythrocyte Sedimentation Rate Westergren 24 0 - 30 mm/hr [facility] ACCOUNT BILL Blood specimen (specimen) BLOOD SPECIMEN / Unknown 12/09/2012 5:49 PM CDT 12/09/2012 7:39 PM CDT Narrative Resulting Agency Comment [facility] [place] [address] ??[facility] [phone] Isidro Heredia MD LAB - HEMATOLOGY OR DERABLES [facility] ACCOUNT BILL * C-REACTIVE PROTEIN (12/09/2012 5:49 PM CDT) C-Reactive Protein 2.9 0.0 - 4.9 mg/L [facility] ACCOUNT BILL Blood specimen (specimen) BLOOD SPECIMEN / Unknown 12/09/2012 5:49 PM CDT 12/09/2012 7:39 PM CDT Narrative Resulting Agency Comment [facility] [place] [address] ??[facility] [phone] Isidro Heredia MD LAB - CHEMISTRY ORD ERABLES Performing Organization Address City/[facility]/ZIP Co de Phone Number [facility] ACCOUNT BILL * (ABNORMAL) COMPREHENSIVE METABOLIC PANEL (12/09/2012 5:49 PM CDT) Glucose 99 65 - 99 mg/dL [facility] ACCOUNT BILL BUN 24 6 - 24 mg/dL [facility] ACCOUNT BILL Creatinine 0.94 0.76 - 1.27 mg/dL [facility] ACCOUNT BILL eGFR by MDRD 94 >59 mL/min/1.7 3 [facility] ACCOUNT BILL eGFR by MDRD 109 >59 mL/min/1.7 3 [facility] ACCOUNT BILL BUN/Creatinine Ratio 26(H) 9 - 20 [facility] ACCOUNT BILL Sodium 140 134 - 144 mmol/L [facility] ACCOUNT BILL Potassium 4.1 3.5 - 5.2 mmol/L [facility] ACCOUNT BILL Chloride 104 97 - 108 mmol/L [facility] ACCOUNT BILL CO2 19 19 - 28 mmol/L [facility] ACCOUNT BILL Calcium 9.0 8.7 - 10.2 mg/dL [facility] ACCOUNT BILL Protein Total 7.0 6.0 - 8.5 g/dL [facility] ACCOUNT BILL Albumin 4.2 3.5 - 5.5 g/dL [facility] ACCOUNT BILL Globulin Total 2.8 1.5 - 4.5 g/dL [facility] ACCOUNT BILL Albumin/Globulin Ratio 1.5 1.1 - 2.5 [facility] ACCOUNT BILL Bilirubin Total 0.2 0.0 - 1.2 mg/dL [facility] ACCOUNT BILL Alkaline Phosphatase 90 44 - 102 IU/L [facility] ACCOUNT BILL AST 17 0 - 40 IU/L [facility] ACCOUNT BILL ALT 19 0 - 44 IU/L [facility] ACCOUNT BILL Blood specimen (specimen) BLOOD SPECIMEN / Unknown 12/09/2012 5:49 PM CDT 12/09/2012 7:39 PM CDT Narrative Resulting Agency Comment [facility] [place] [phone] [facility] ??[facility] [phone] Isidro Heredia MD LAB - CHEMISTRY ORD ERABLES [facility] ACCOUNT BILL * (ABNORMAL) CBC W AUTO DIFFERENTIAL (12/09/2012 5:49 PM CDT) WBC 12.9(H) 4.0 - 10.5 x10E3/uL [facility] ACCOUNT BILL RBC 4.36 4.14 - 5.80 x10E6/uL [facility] ACCOUNT BILL Hemoglobin 12.5(L) 12.6 - 17.7 g/dL [facility] ACCOUNT BILL Hematocrit 38.2 37.5 - 51.0 % [facility] ACCOUNT BILL MCV 88 79 - 97 fL [facility] ACCOUNT BILL MCH 28.7 26.6 - 33.0 pg [facility] ACCOUNT BILL MCHC 32.7 31.5 - 35.7 g/dL [facility] ACCOUNT BILL RDW 15.9(H) 12.3 - 15.4 % [facility] ACCOUNT BILL Platelet Count 228 140 - 415 x10E3/uL [facility] ACCOUNT BILL Granulocytes % 70 40 - 74 % [facility] ACCOUNT BILL Lymphocytes % 24 14 - 46 % [facility] ACCOUNT BILL Monocytes % 5 4 - 13 % [facility] ACCOUNT BILL Eosinophils % 1 0 - 7 % [facility] ACCOUNT BILL Basophils % 0 0 - 3 % [facility] ACCOUNT BILL Immature Cells NOT NEEDED [facility] ACCOUNT BILL Comment:Ancillary determined the test is not needed Granulocytes Absolute 9.0(H) 1.8 - 7.8 x10E3/uL [facility] ACCOUNT BILL Lymphocytes Absolute 3.0 0.7 - 4.5 x10E3/uL [facility] ACCOUNT BILL Monocytes Absolute 0.7 0.1 - 1.0 x10E3/uL [facility] ACCOUNT BILL Eosinophils Absolute 0.2 0.0 - 0.4 x10E3/uL [facility] ACCOUNT BILL Basophils Absolute 0.0 0.0 - 0.2 x10E3/uL [facility] ACCOUNT BILL Immature Granulocytes 0 0 - 2 % [facility] ACCOUNT BILL Immature Granulocytes Absolute 0.0 0.0 - 0.1 x10E3/uL [facility] ACCOUNT BILL nRBC NOT NEEDED [facility] ACCOUNT BILL Comment:Ancillary determined the test is not needed Comment Hematology NOT NEEDED [facility] ACCOUNT BILL Comment:Ancillary determined the test is not needed Blood specimen (specimen) BLOOD SPECIMEN / Unknown 12/09/2012 5:49 PM CDT 12/09/2012 7:39 PM CDT Narrative Resulting Agency Comment [facility] [address] ??[facility] [phone] Isidro Heredia MD LAB - HEMATOLOGY OR DERABLES [facility] ACCOUNT BILL documented in this encounter Visit Diagnoses Diagnosis Rheumatoid arthritis(714.0) (HCC)- Primary Rheumatoid arthritis Chronic pain syndrome documented in this encounter Care Teams Starch Dumper Relationship Specialty Start Date End Date Nolberto Nicole MD PCP - General 07/21/08 12/30/13 Isidro Heredia MD Rheumatology 02/09/11 documented as of this encounter
--- OUTSIDE RECORDS SUMMARY | 2024-05-03 04:14 | XMS_ITS | Encounter Summary ---
Author Organization [facility] Address [address] [facility] [place] [address] Care Team Providers Care Towing Pilot Name Role Phone Nolberto Nicole MD Primary Care Provider Isidro Heredia MD Unavailable [phone] Reason for Visit * Treatment (Routine) - Closed Specialty Diagnoses / Procedures Referred By Lawrence shah Referred To Contact Infusion Therapy Nurse Diagnoses Rheumatoid arthritis(714.0) ([facility]) Procedures VA INJECTION RITUXIMAB 100 MG Nolberto Nicole MD [address] [facility] [place] [address] Referral ID Status Reason Start Date Expiration Date Visits Re quested Visits Authorized [id number] Closed 04/30/2012 04/29/2013 1 4 Encounter Details Date Type Department Care Team (Late st Contact Info) Description 01/09/2013 11:30 AM CDT - 01/09/2013 11:59 PM CDT Hospital Encounter [facility] - Rheumatology [address] [place] [address] Isidro Heredia MD [address] [place] [address] Discharge Disposition: Home or Self Care [...] Sign Reading Time Taken Comments Blood Pressure 132/82 01/09/2013 3:46 PM CDT Pulse 104 01/09/2013 3:46 PM CDT Temperature 36.7 ??C (98 ??F) 01/09/2013 3:46 PM CDT Respiratory Rate 18 01/09/2013 3:46 PM CDT Oxygen Saturation - - Inhaled Oxygen Concentration - - Weight 106.6 kg (235 lb) 01/09/2013 11:48 AM CDT Height 177.8 cm (5' 10 ) 01/09/2013 11:48 AM CDT Body Mass Index 33.72 01/09/2013 11:48 AM CDT documented in this encounter Discharge Instructions * Discharge Instructions* Carlos Foreman RN - 01/09/2013 12:42 PM CDT [place] Rheumatology Post Infusion instructions You [...] through Sunday 9-5 call the office at [phone] After hours or on the weekend call the exchange at [phone] If you have had lab work done [...] chosen [facility] as your provider. Carlos Foreman RN * Discharge Instructions* Document, Scanned - 01/22/2013 12:28 AM CDT documented in this encounter Medications at Time of Discharge Medication Sig Dispensed Refills Start Date End Date Wbqyjtwnssh-Jsoazokkn-I it C-Mn (GLUCOSAMINE CHONDR 1500 COMPLX PO) [...] as needed for Pain. 120 Tab 0 01/09/2013 02/10/2013 predniSONE (DELTASONE) 10 MG tablet Take 1 [...] Progress Notes * Carlos Foreman RN - 01/09/2013 12:38 PM CDT JOSE Deng [id number] 01/09/2013 Diagnosis: Rheumatoid arthritis [714.0]. Patient questionnaire results Health Assessment Questionnaire MHAQ: Pain: Global: Rapid 3: Sleep: GI: Fatigue: BP 129/84 Pulse 110 Temp 98.4 ??F Resp 16 Wt 106.595 kg (235 lb) BMI 33.72 kg/m2 Patient received: Premeds Benedryl 50mg SIVP and Solu-Medrol 125mg SIVP given prior to Rituxan Tx. ?? 1000 mgIV of Rituxan and 150 cc normal saline given over 180 minutes. ?? Number of 22 gauge 1 inch placed in Left hand ?? 1 attempt(s). Patient monitored throughout procedure. Tolerated well? Yes Next treatment? 4months Carlos Foreman RN documented in this encounter Miscellaneous Notes * Miscellaneous Scans - Document, Scanned - 01/17/2013 5:32 PM CDT documented in this encounter Plan of Treatment Upcoming Encounters Date Type Department Care Team (Late st Contact Info) Description 06/03/2024 1:00 PM HYDROTHERAPIST Appointment [facility] - Rheumatology [address] [place] [address] [phone] 06/03/2024 2:00 PM HYDROTHERAPIST Office Visit [facility] - Rheumatology [address] [place] [address] Gloria Smith MD [address] [place] [phone] documented as of this encounter Visit Diagnoses Not on filedocumented in this encounter Administered Medications Inactive Administered Medications - up to 3 most recent administrations Medication Order MAR Action Action Date Dose Rate Site diphenhydrAMINE (BENADRYL) injection 50 mg 50 mg, Intravenous, ONCE, 1 dose, On [facility] 01/09/13 at 1200, Max intravenous rate = 25 mg/min $ Given 01/09/2013 12:00 PM CDT 50 mg methylPREDNISolone sod succ (Solu-MEDROL) injection 125 mg 125 mg, Intravenous, ONCE, 1 dose, On [facility] 01/09/13 at 1215 $ Given 01/09/2013 12:05 PM CDT 125 mg rituximab (RITUXAN) 1,000 mg in NaCl 0.9 % infusion 1,000 mg, Intravenous, ONCE, 1 dose, On [facility] 01/09/13 at 1145, Stable for 24 hours refrigerate; 48 hours at room temperature . WASTE DISPOSAL INSTRUCTIONS: Chemo Bin Disposal required. . $ Given 01/09/2013 12:35 PM CDT 1,000 mg documented in this encounter Care Teams Towing Pilot Relationship Specialty Start Date End Date Nolberto Nicole MD PCP - General 07/21/08 12/30/13 Isidro Heredia MD Rheumatology 02/09/11 documented as of this encounter
--- OUTSIDE RECORDS SUMMARY | 2024-05-03 04:14 | XMS_ITS | Encounter Summary ---
Author Organization [facility] Address [address] [facility] [place] [address] Care Team Providers Care Upper Shaper Name Role Phone Nolberto Nicole MD Primary Care Provider [phone] Isidro Heredia MD Unavailable [phone] Encounter Details Date Type Department Care Team (Late st Contact Info) Description 04/11/2013 Orders Only [facility] - Rheumatology [address] [place] [address] [phone] Isidro Heredia MD [address] [place] [address] Rheumatoid arthritis (HCC) Social History Tobacco [...] Progress Notes * Rea Hagan MA - 04/21/2013 11:23 AM CSTQuick Note: Sent lab letter to pt [employer] * Isidro Heredia MD - 04/16/2013 6:50 AM CSTQuick Note: mtx ok [employer] documented in this encounter Plan of Treatment Upcoming Encounters Date Type Department Care Team (Late st Contact Info) Description 06/03/2024 1:00 PM DIRECTOR OF ANESTHESIA SERVICES Appointment [facility] - Rheumatology [address] [place] [address] 06/03/2024 2:00 PM DIRECTOR OF ANESTHESIA SERVICES Office Visit [facility] - Rheumatology [address] [place] [address] Gloria Smith MD [address] [place] [phone] documented as of this encounter Procedures Procedure Name Priority Date/Time Associated Diagnosis Comments ERYTHROCYTE SEDIMENTATION RATE Routine 04/11/2013 9:30 AM DIRECTOR OF ANESTHESIA SERVICES Rheumatoid Arthritis (Hcc) CBC W AUTO DIFFERENTIAL Routine 04/11/2013 9:30 AM DIRECTOR OF ANESTHESIA SERVICES Rheumatoid Arthritis (Hcc) COMPREHENSIVE METABOLIC PANEL Routine 04/11/2013 9:30 AM DIRECTOR OF ANESTHESIA SERVICES Rheumatoid Arthritis (Hcc) documented in this encounter Results * SED RATE WESTERGREN (04/11/2013 9:30 AM DIRECTOR OF ANESTHESIA SERVICES) Erythrocyte Sedimentation Rate Westergren 20 0 - 30 mm/hr [facility] ACCOUNT BILL Blood specimen (specimen) BLOOD SPECIMEN / Unknown 04/11/2013 9:30 AM DIRECTOR OF ANESTHESIA SERVICES 04/11/2013 6:53 PM DIRECTOR OF ANESTHESIA SERVICES Narrative Resulting Agency Comment [facility] [place] [id number] [facility] ??[facility] [phone] Isidro Heredia MD LAB - HEMATOLOGY OR DERABLES [facility] ACCOUNT BILL * (ABNORMAL) COMPREHENSIVE METABOLIC PANEL (04/11/2013 9:30 AM DIRECTOR OF ANESTHESIA SERVICES) Glucose 92 65 - 99 mg/dL [facility] ACCOUNT BILL BUN 27(H) 6 - 24 mg/dL [facility] ACCOUNT BILL Creatinine 0.93 0.76 - 1.27 mg/dL [facility] ACCOUNT BILL eGFR by MDRD 95 >59 mL/min/1.7 3 [facility] ACCOUNT BILL eGFR by MDRD 110 >59 mL/min/1.7 3 [facility] ACCOUNT BILL BUN/Creatinine Ratio 29(H) 9 - 20 [facility] ACCOUNT BILL Sodium 139 134 - 144 mmol/L [facility] ACCOUNT BILL Potassium 3.9 3.5 - 5.2 mmol/L [facility] ACCOUNT BILL Chloride 105 97 - 108 mmol/L [facility] ACCOUNT BILL CO2 22 19 - 28 mmol/L [facility] ACCOUNT BILL Calcium 9.2 8.7 - 10.2 mg/dL [facility] ACCOUNT BILL Protein Total 6.5 6.0 - 8.5 g/dL [facility] ACCOUNT BILL Albumin 4.1 3.5 - 5.5 g/dL [facility] ACCOUNT BILL Globulin Total 2.4 1.5 - 4.5 g/dL [facility] ACCOUNT BILL Albumin/Globulin Ratio 1.7 1.1 - 2.5 [facility] ACCOUNT BILL Bilirubin Total 0.4 0.0 - 1.2 mg/dL [facility] ACCOUNT BILL Alkaline Phosphatase 91 39 - 117 IU/L [facility] ACCOUNT BILL AST 16 0 - 40 IU/L [facility] ACCOUNT BILL ALT 16 0 - 44 IU/L [facility] ACCOUNT BILL Blood specimen (specimen) BLOOD SPECIMEN / Unknown 04/11/2013 9:30 AM DIRECTOR OF ANESTHESIA SERVICES 04/11/2013 6:53 PM DIRECTOR OF ANESTHESIA SERVICES Narrative Resulting Agency Comment [facility] [address] ??[facility] [phone] Isidro Heredia MD LAB - CHEMISTRY ORD ERABLES [facility] ACCOUNT BILL * (ABNORMAL) CBC W AUTO DIFFERENTIAL (04/11/2013 9:30 AM DIRECTOR OF ANESTHESIA SERVICES) WBC 8.0 3.4 - 10.8 x10E3/uL [facility] ACCOUNT BILL RBC 4.37 4.14 - 5.80 x10E6/uL [facility] ACCOUNT BILL Hemoglobin 12.5(L) 12.6 - 17.7 g/dL [facility] ACCOUNT BILL Hematocrit 37.6 37.5 - 51.0 % [facility] ACCOUNT BILL MCV 86 79 - 97 fL [facility] ACCOUNT BILL MCH 28.6 26.6 - 33.0 pg [facility] ACCOUNT BILL MCHC 33.2 31.5 - 35.7 g/dL [facility] ACCOUNT BILL RDW 14.4 12.3 - 15.4 % [facility] ACCOUNT BILL Platelet Count 190 155 - 379 x10E3/uL [facility] ACCOUNT BILL Granulocytes % 74 40 - 74 % [facility] ACCOUNT BILL Lymphocytes % 17 14 - 46 % [facility] ACCOUNT BILL Monocytes % 5 4 - 12 % [facility] ACCOUNT BILL Eosinophils % 3 0 - 5 % [facility] ACCOUNT BILL Basophils % 1 0 - 3 % [facility] ACCOUNT BILL Immature Cells NOT NEEDED [facility] ACCOUNT BILL Comment:Ancillary determined the test is not needed Granulocytes Absolute 5.9 1.4 - 7.0 x10E3/uL [facility] ACCOUNT BILL Lymphocytes Absolute 1.3 0.7 - 3.1 x10E3/uL [facility] ACCOUNT BILL Monocytes Absolute 0.4 0.1 - 0.9 x10E3/uL [facility] ACCOUNT BILL Eosinophils Absolute 0.3 0.0 - 0.4 x10E3/uL [facility] ACCOUNT BILL [...] Blood specimen (specimen) BLOOD SPECIMEN / Unknown 04/11/2013 9:30 AM DIRECTOR OF ANESTHESIA SERVICES 04/11/2013 6:53 PM DIRECTOR OF ANESTHESIA SERVICES Narrative Resulting Agency Comment [facility] [address] ??[facility] [id number] Isidro Heredia MD LAB - HEMATOLOGY OR DERABLES [facility] ACCOUNT BILL documented in this encounter Visit Diagnoses Diagnosis Rheumatoid arthritis(714.0) (HCC)- Primary Rheumatoid arthritis documented in this encounter Care Teams Upper Shaper Relationship Specialty Start Date End Date Nolberto Nicole MD PCP - General 07/21/08 12/30/13 Isidro Heredia MD Rheumatology 02/09/11 documented as of this encounter
--- OUTSIDE RECORDS SUMMARY | 2024-05-03 04:14 | XMS_ITS | Encounter Summary ---
Author Organization [facility] Address [address] [place] [address] Care Team Providers Care Conceptor Name Role Phone Nolberto Nicole MD Primary Care Provider [phone] Isidro Heredia MD Unavailable [phone] Reason for Referral * - Closed Specialty Diagnoses / Procedures Referred By Contac t Referred To Contact Diagnoses Pleurisy Abdominal pain Procedures CT THORAX ABDOMEN PELVIS W CONT Isidro Heredia MD [address] [place] [address] Referral ID Status Reason Start Date Expiration Date Visits Re quested Visits Authorized [id number] Closed 03/25/2013 09/21/2013 1 1 R Reason for Visit * Reason Comments Rheumatoid Arthritis Pain Side rt upper side. burni ng sensations. he wants liver checked Rash upper back * Consult, Test & Treat (Routine) - Closed Specialty Diagnoses / Procedures Referred By Contsarahi t Referred To Contact Diagnoses Rheumatoid arthritis(714.0) ([facility]) Procedures CO OFFICE VISIT DURING HOURS Nolberto Nicole MD [address] [place] [address] Isidro Heredia MD [address] [place] [address] Referral ID Status Reason Start Date Expiration Date Visits Re quested Visits Authorized [id number] Closed 03/14/2013 09/11/2013 1 6 Encounter Details Date Type Department Care Team (Late st Contact Info) Description 03/21/2013 1:00 PM GIVER Office Visit [facility] - Rheumatology [address] [place] [address] Isidro Heredia MD [address] [place] [address] Rheumatoid arthritis (HCC) (Primary Dx); Pleurisy; Abdominal pain Social History Tobacco Use Types Packs/Day Years [...] Sign Reading Time Taken Comments Blood Pressure 136/84 03/21/2013 1:02 PM GIVER Pulse 80 03/21/2013 1:02 PM GIVER Temperature - - Respiratory Rate - - Oxygen Saturation - - Inhaled Oxygen Concentration - - Weight 114.3 kg (252 lb) 03/21/2013 1:02 PM GIVER Height - - Body Mass Index 36.16 01/09/2013 11:48 AM CDT documented in this encounter Progress Notes * Rea Hagan MA - 04/07/2013 12:23 PM CSTQuick Note: Pt informed his lab results on 04/04/13 R * Isidro Heredia MD - 03/28/2013 9:55 PM CSTQuick Note: All labs ok Ct chest nl Ct abd Diverticulosis in colon benign Rest of ct neg R * Rea Hagan MA - 03/24/2013 9:16 AM CST Resulted the urine test R * Isidro Heredia MD - 03/21/2013 1:38 PM CST Subjective: Chalino Deng 52 y.o. male is here for Chief Complaint Patient presents with ??? Rheumatoid Arthritis ??? Pain Side rt upper side. burning sensations. he wants liver checked ??? Rash upper back HPI: 3 week hx abd bloating n/vpoor appetite diarrhea rash across upper back Last several days now with r sided abd pain w/o fever chills cough Ant chest pain He was supposed to get 1st actemra today Pain Level: 5 pain radiates to ruq/10 Am stiffness 2 hrs Global 6/10 Fatigue yes Medication Side Effects no Current Outpatient Prescriptions on File Prior to Visit Medication Status Sig Dispense Refill ??? methotrexate 2.5 MG tablet Active Take 6 Tabs by mouth every 7 days. 72 Tab 3 ??? rituximab (RITUXAN) 10 MG/ML injection Active [...] Active Take by mouth once daily. ??? Ddepahjzmjs-Tgbnhdrnh-Loc C-Mn (GLUCOSAMINE CHONDR 1500 COMPLX PO) Active [...] sore gums, ulcers, sore throat CV: No palpitations, orthopnea, syncope Resp: No shortness of breath, cough, pleurisy, wheezing GI No nocturia, dysuria, frequency, urgency, kidney stones. MS: NEURO: No headaches, seizures, dizziness, confusion, numbness, tingling HEME/LYMPH: No bruising or bleeding, swollen glands SKIN: ENDO No Heat or cold intol, no hyper or hypoglycemia PSYCH: No memory loss, disorientation, confusion, mood changes, ALLERGY/IMMU No runny nose, tearing, sneezing, cough, eye irritation Systems reviewed genl heart lungs Objective: General Appearance Physical Exam: wd wn wm in nad BP 136/84 Pulse 80 Wt 114.306 kg (252 lb) Head: perrla, [...] No edema, cyanosis, or rash RUE: 11/TJ, 6/SJ, 0/muscle tenderness or weakness LUE: 11/TJ, 6/SJ, 0/muscle tenderness or weakness RLE: 1/TJ, 1/SJ, 0/muscle tenderness or weakness LLE: 1/TJ, 1/SJ, 0/muscle tenderness or weakness Assessment: Encounter Diagnoses Name Primary? Rheumatoid arthritis Yes ??? Pleurisy ??? Abdominal pain needs ct chest and abd Cont pain meds Plan: Plan Orders Placed This Encounter ??? XR CHEST PA AND LATERAL Standing Status: Future Number of Occurrences: 1 Standing Expiration Date: 03/21/2014 Order Specific Question: Exam to be performed? Answer: Per Radiologist protocol ??? CT ABDOMEN AND PELVIS WITH IV CONTRAST Standing Status: Future Number of Occurrences: Standing Expiration Date: 03/21/2014 Order Specific Question: Exam to be performed? Answer: Per Radiologist protocol ??? CT CHEST WITH CONTRAST Standing Status: Future Number of Occurrences: Standing Expiration Date: 03/21/2014 Order Specific Question: Exam to be performed? Answer: Per Radiologist protocol Order Specific Question: Would you like 3D Imaging? Answer: No ??? oxycodone-acetaminophen (PERCOCET) 5-325 MG tablet Sig: Take 1 Tab by mouth every 6 hours as needed for Pain. Dispense: 120 Tab Refill: 0 Follow up in office in 4 weeks R documented in this encounter Plan of Treatment Upcoming Encounters Date Type Department Care Team (Late st Contact Info) Description 06/03/2024 1:00 PM GIVER Appointment [facility] - Rheumatology [address] [place] [address] 06/03/2024 2:00 PM GIVER Office Visit [facility] - Rheumatology [address] [place] [address] Gloria Smith MD [address] [place] [phone] documented as of this encounter Procedures Procedure Name Priority Date/Time Associated Diagnosis Comments URINALYSIS AUTO - POINT OF CARE Routine 03/24/2013 9:16 AM GIVER Rheumatoid Arthritis (Hcc) C-REACTIVE PROTEIN Routine 03/21/2013 2: 22 PM GIVER Rheumatoid Arthritis (Hcc) ERYTHROCYTE SEDIMENTATION RATE Routine 03/21/2013 2:22 PM GIVER Rheumatoid Arthritis (Hcc) CBC W AUTO DIFFERENTIAL Routine 03/21/2013 2:22 PM GIVER Rheumatoid Arthritis (Hcc) COMPREHENSIVE METABOLIC PANEL Routine 03/21/2013 2:22 PM GIVER Rheumatoid Arthritis (Hcc) documented in this encounter Results * CT THORAX ABDOMEN PELVIS W CONT (03/25/2013 8:59 AM GIVER) Anatomical Region Laterality Modality Chest, Abdomen, Pelvis Computed Tomography 03/25/2013 11:5 3 AM GIVER Narrative 03/25/2013 11:57 AM GIVER Examination: CT chest with contrast. Indication for [...] identified. Isidro Heredia MD CT ORDERABLES * XR CHEST PA AND LATERAL (03/24/2013 6:23 PM GIVER) Anatomical Region Laterality Modality Chest Other Narrative 03/24/2013 6:23 PM GIVER Isidro Heredia MD ? 03/24/2013 ??6:23 PM CXR: ??NAD Procedure Note Isidro Heredia MD - 03/24/2013 6:22 PM CST CXR: NAD Isidro Heredia MD DIAGNOSTIC IMAGING ORDERABLES * URINALYSIS AUTO - POINT OF CARE (03/24/2013 9:16 AM GIVER) Pathologist [facility] Clarity UA POCT Comment:creatine 100 mg/dl Color UA POCT yellow Leukocyte UA negative Negative Nitrite UA POCT negative Negative Urobilinogen UA POCT 0.1 - 1.0 EU/dL Protein UA POCT negative Negative pH UA 6.0 5.0 - 8.0 pH units Blood UA negative Negtive Specific [place] UA POCT 1.015 1.002 - 1.030 Ketone UA negative Negative Bilirubin UA POCT Negative Glucose UA negative Negative Urine specimen (specimen) URINE / Unknown Isidro Heredia MD LAB - POINT OF CARE ORDERABLES * SED RATE WESTERGREN (03/21/2013 2:22 PM GIVER) Pathologist [facility] Erythrocyte Sedimentation Rate Westergren 10 0 - 30 mm/hr [facility] ACCOUNT BILL Blood specimen (specimen) BLOOD SPECIMEN / Unknown 03/21/2013 2:22 PM GIVER 03/21/2013 4:07 PM GIVER Narrative Resulting Agency Comment [facility] [address] ??[facility] [phone] Isidro Heredia MD LAB - HEMATOLOGY OR DERABLES [facility] ACCOUNT BILL * (ABNORMAL) C-REACTIVE PROTEIN (03/21/2013 2:22 PM GIVER) C-Reactive Protein 6.7(H) 0.0 - 4.9 mg/L [facility] ACCOUNT BILL Blood specimen (specimen) BLOOD SPECIMEN / Unknown 03/21/2013 2:22 PM GIVER 03/21/2013 4:07 PM GIVER Narrative Resulting Agency Comment [facility] [address] ??[facility] [phone] Isidro Heredia MD LAB - CHEMISTRY ORD ERABLES [facility] ACCOUNT BILL * (ABNORMAL) COMPREHENSIVE METABOLIC PANEL (03/21/2013 2:22 PM GIVER) Glucose 112(H) 65 - 99 mg/dL [facility] ACCOUNT BILL BUN 19 6 - 24 mg/dL [facility] ACCOUNT BILL Creatinine 1.07 0.76 - 1.27 mg/dL [facility] ACCOUNT BILL eGFR by MDRD 81 >59 mL/min/1.7 3 [facility] ACCOUNT BILL eGFR by MDRD 93 >59 mL/min/1.7 3 [facility] ACCOUNT BILL BUN/Creatinine Ratio 18 9 - 20 [facility] ACCOUNT BILL Sodium 138 134 - 144 mmol/L [facility] ACCOUNT BILL Potassium 4.5 3.5 - 5.2 mmol/L [facility] ACCOUNT BILL Chloride 103 97 - 108 mmol/L [facility] ACCOUNT BILL CO2 22 19 - 28 mmol/L [facility] ACCOUNT BILL Calcium 9.5 8.7 - 10.2 mg/dL [facility] ACCOUNT BILL Protein Total 7.0 6.0 - 8.5 g/dL [facility] ACCOUNT BILL Albumin 4.1 3.5 - 5.5 g/dL [facility] ACCOUNT BILL Globulin Total 2.9 1.5 - 4.5 g/dL [facility] ACCOUNT BILL Albumin/Globulin Ratio 1.4 1.1 - 2.5 [facility] ACCOUNT BILL Bilirubin Total 0.3 0.0 - 1.2 mg/dL [facility] ACCOUNT BILL Alkaline Phosphatase 115 39 - 117 IU/L [facility] ACCOUNT BILL AST 21 0 - 40 IU/L [facility] ACCOUNT BILL ALT 22 0 - 44 IU/L [facility] ACCOUNT BILL Blood specimen (specimen) BLOOD SPECIMEN / Unknown 03/21/2013 2:22 PM GIVER 03/21/2013 4:07 PM GIVER Narrative Resulting Agency Comment [facility] [address] ??[facility] [phone] Isidro Heredia MD LAB - CHEMISTRY ORD ERABLES [facility] ACCOUNT BILL * (ABNORMAL) CBC W AUTO DIFFERENTIAL (03/21/2013 2:22 PM GIVER) WBC 10.6 3.4 - 10.8 x10E3/uL [facility] ACCOUNT BILL RBC 4.50 4.14 - 5.80 x10E6/uL [facility] ACCOUNT BILL Hemoglobin 13.0 12.6 - 17.7 g/dL [facility] ACCOUNT BILL Hematocrit 38.9 37.5 - 51.0 % [facility] ACCOUNT BILL MCV 86 79 - 97 fL [facility] ACCOUNT BILL MCH 28.9 26.6 - 33.0 pg [facility] ACCOUNT BILL MCHC 33.4 31.5 - 35.7 g/dL [facility] ACCOUNT BILL RDW 14.6 12.3 - 15.4 % [facility] ACCOUNT BILL Platelet Count 219 155 - 379 x10E3/uL [facility] ACCOUNT BILL Granulocytes % 77(H) 40 - 74 % [facility] ACCOUNT BILL Lymphocytes % 17 14 - 46 % [facility]OUNT BILL Monocytes % 5 4 - 12 % [facility] ACCOUNT BILL Eosinophils % 1 0 - 5 % [facility] ACCOUNT BILL Basophils % 0 0 - 3 % [facility] ACCOUNT BILL Immature Cells NOT NEEDED [facility] ACCOUNT BILL Comment:Ancillary determined the test is not needed Granulocytes Absolute 8.1(H) 1.4 - 7.0 x10E3/uL [facility] ACCOUNT BILL Lymphocytes Absolute 1.9 0.7 - 3.1 x10E3/uL [facility] ACCOUNT BILL Monocytes Absolute 0.5 0.1 - 0.9 x10E3/uL [facility] ACCOUNT BILL Eosinophils Absolute 0.1 0.0 - 0.4 x10E3/uL [facility] ACCOUNT BILL [...] Blood specimen (specimen) BLOOD SPECIMEN / Unknown 03/21/2013 2:22 PM GIVER 03/21/2013 4:07 PM GIVER Narrative Resulting Agency Comment [facility] [address] ??[facility] [phone] Isidro Heredia MD LAB - HEMATOLOGY OR DERABLES [facility] ACCOUNT BILL documented in this encounter Visit Diagnoses Diagnosis Rheumatoid arthritis(714.0) (HCC)- Primary Rheumatoid arthritis Pleurisy Abdominal pain Pleurisy- Primary Pleurisy Abdominal pain documented in this encounter Care Teams Conceptor Relationship Specialty Start Date End Date Nolberto Nicole MD PCP - General 07/21/08 12/30/13 Isidro Heredia MD Rheumatology 02/09/11 documented as of this encounter
--- OUTSIDE RECORDS SUMMARY | 2024-05-03 04:14 | XMS_ITS | Encounter Summary ---
Author Organization [facility] Address [address] [place] [address] [place] [address] Care Team Providers Care Parts Puller Name Role Phone Nolberto Nicole MD Primary Care Provider [phone] Isidro Heredia MD Unavailable [phone] Reason for Visit * Reason Onset Date Comments Results 04/02/2013 Encounter Details Date Type Department Care Team (Late st Contact Info) Description 04/02/2013 Telephone [facility] - Family Medicine [address] [place] [address] Isidro Heredia MD [address] [place] [phone] Results Social History Tobacco Use Types Packs/Day [...] Telephone Encounter - Rea Hagan MA - 04/07/2013 9:33 AM CST Late Entry: Pt returned call on 04/04/13. Informed him per [facility] [employer], they due not allow phone in or fax scripts. Pt must bring in scripts. He given me [facility] number to send his rx over. Laterin the conversation, pt said to disregard calling in the prescriptions. He is feeling a lot better than before. He will call the office back if sx persist. DULING AGENT * Telephone Encounter - Rea Hagan MA - 04/04/2013 9:55 AM CST Lmr to call office with new pharm number DULING AGENT * Telephone Encounter - Rea Hagan MA - 04/03/2013 5:09 PM CST Informed pt per Dr Valiente results shows diverticulosis and its ok to restart infusion. Also he c/o side pain. Instruct to take Neurontin [address] Valiente. Pharm closed. He will call tomorrow with a local pharm number instead DULING AGENT * Telephone Encounter - Rea Hagan MA - 04/02/2013 4:22 PM CST This is noted. Results on Dr Valiente desk for review DULING AGENT * Telephone Encounter - Erika Julien - 04/02/2013 2:45 PM CST Pt wants his ct results , dr is holding his infusion till he finds out what is causing the pain DULING AGENT documented in this encounter Plan of Treatment Upcoming Encounters Date Type Department Care Team (Late st Contact Info) Description 06/03/2024 1:00 PM SCHEDULING AGENT Appointment [facility] - Rheumatology [address] [place] [address] 06/03/2024 2:00 PM SCHEDULING AGENT Office Visit [facility] - Rheumatology [address] [place] [address] [phone] Gloria Smith MD [address] [place] [address] [phone] documented as of this encounter Visit Diagnoses Not on filedocumented in this encounter Care Teams Parts Puller Relationship Specialty Start Date End Date Nolberto Nicole MD PCP - General 07/21/08 12/30/13 Isidro Heredia MD Rheumatology 02/09/11 documented as of this encounter
--- OUTSIDE RECORDS SUMMARY | 2024-05-03 04:14 | XMS_ITS | Encounter Summary ---
Author Organization [facility] Address [address] [place] [address] Care Team Providers Care Clinical Psychology Professor Name Role Phone Nolberto Nicole MD Primary Care Provider [phone] Isidro Heredia MD Unavailable Reason for Visit * Treatment (Routine) - Closed Specialty Diagnoses / Procedures Referred By Lawrence shah Referred To Contact Infusion Therapy Nurse Diagnoses Rheumatoid arthritis(714.0) (FORMERLY [facility]) Procedures [place] INJECTION TOCILIZUMAB 1 MG Isidro Heredia MD [address] [place] [address] Referral ID Status Reason Start Date Expiration Date Visits Re quested Visits Authorized [id number] Closed 05/01/2013 04/29/2014 1 12 Encounter Details Date Type Department Care Team (Late st Contact Info) Description 09/04/2013 2:30 PM CDT - 09/04/2013 11:59 PM CDT Hospital Encounter [facility] - Rheumatology [address] [place] [phone] Isidro Heredia MD [address] [place] [address] Discharge Disposition: Home or Self [...] Sign Reading Time Taken Comments Blood Pressure 138/78 09/04/2013 2:55 PM CDT Pulse 105 09/04/2013 2:55 PM CDT Temperature 36.6 ??C (97.9 ??F) 09/04/2013 2:55 PM CD T Respiratory Rate 16 09/04/2013 2:55 PM CDT Oxygen Saturation - - Inhaled Oxygen Concentration - - Weight 120.2 kg (265 lb) 09/04/2013 2:57 PM CDT Height 177.8 cm (5' 10 ) 09/04/2013 2:55 PM CDT Body Mass Index 38.02 09/04/2013 2:55 PM CDT documented in this encounter Discharge Instructions * Discharge Instructions* Carlos Foreman RN - 09/04/2013 3:08 PM CDT [facility] Rheumatology Post Infusion instructions You have [...] through Sunday 9-5 call the office at [phone] After hours or on the weekend call the exchange at [phone] If you have had lab work done [...] RN * Discharge Instructions* Document, Scanned - 09/10/2013 12:43 AM CDT documented in this encounter Medications at Time of Discharge Medication Sig Dispensed Refills Start Date End Date Ohelvquvuac-Maodrwxpq-Ex t C-Mn (GLUCOSAMINE CHONDR 1500 COMPLX PO) [...] received from . Exp 09/04/2014 09/04/2013 09/04/2014 tocilizumab 20 MG/ML in NaCl 0.9 % 100 mL Pt to receive IV infusion Actemra 460mg/100cc 0.9%normal saline per Actemra protocol unless further orders received from Dr. Heredia. Order will in 1 year. 04/07/2014 04/07/2013 10/15/2013 documented as of this encounter Progress Notes * Carlos Foreman RN - 09/04/2013 3:05 PM CDT JOSE Deng [id number] 09/04/2013 Diagnosis: Rheumatoid arthritis [714.0]. Patient questionnaire results Health Assessment Questionnaire BP 138/78 Pulse 105 Temp 97.9 ??F Resp 16 Wt 120.203 kg (265 lb) BMI 38.02 kg/m2 @ MEDICATIONS FOR CURRENT ENCOUNTER: ?? SCHEDULED MEDICATIONS: ?? Tocilizumab 800 mg in 0.9% NaCl 0.9 % IVPB, Intravenous, Once ?? CONTINUOUS MEDICATIONS: PRN MEDICATIONS: ?? Number of 22 gauge 1 inch placed in Left hand 1 attempt(s).Pt has had no relief since starting Actemra at the 4mg/kg dose. Per Dr Heredia dose increased to 800mg every 4 wks. Patient monitored throughout procedure. Tolerated well? Yes Next treatment? 4wks Carlos Foreman RN documented in this encounter Miscellaneous Notes * Miscellaneous Scans - Document, Scanned - 09/09/2013 9:03 PM CDT documented in this encounter Plan of Treatment Upcoming Encounters Date Type Department Care Team (Late st Contact Info) Description 06/03/2024 1:00 PM GEOPHYSICAL DATA TECHNICIAN Appointment [facility] - Rheumatology [address] [place] [phone] 06/03/2024 2:00 PM GEOPHYSICAL DATA TECHNICIAN Office Visit [facility] - Rheumatology [address] [place] [address] Gloria Smith MD [address] [place] [phone] documented as of this encounter Visit Diagnoses Diagnosis Rheumatoid arthritis(714.0) (FORMERLY [facility])- Primary Rheumatoid arthritis documented in this encounter Administered Medications Inactive Administered Medications - up to 3 most recent administrations Medication Order MAR Action Action Date Dose Rate Site Tocilizumab 800 mg in 0.9% NaCl 0.9 % IVPB 800 mg, at 100 mL/hr, Intravenous, ONCE, 1 dose, On Gabriela 09/04/13 at 1500 $ Given 09/04/2013 3:04 PM CDT 800 mg 100 mL/hr documented in this encounter Care Teams Clinical Psychology Professor Relationship Specialty Start Date End Date Nolberto Nicole MD PCP - General 07/21/08 12/30/13 Isidro Heredia MD Rheumatology 02/09/11 documented as of this encounter
--- OUTSIDE RECORDS SUMMARY | 2024-05-03 04:14 | XMS_ITS | Encounter Summary ---
Author Organization [facility] Address [address] [place] [address] Care Team Providers Care Buckle Strap Drum Operator Name Role Phone Nolberto Nicole MD Primary Care Provider [phone] Isidro Heredia MD Unavailable [phone] Encounter Details Date Type Department Care Team (Late st Contact Info) Description 06/10/2013 Orders Only [facility] - Rheumatology [address] [place] [address] [phone] Isidro Heredia MD [address] [place] [phone] Rheumatoid arthritis (HCC) Social History Tobacco [...] Progress Notes * Yamileth Rodríguez MA - 06/20/2013 10:24 AM CSTQuick Note: Letter mailed to patient regarding lab results. OSCIENCE SPECIALIST * Isidro Heredia MD - 06/18/2013 6:54 AM CSTQuick Note: bs 155 mtx ok OSCIENCE SPECIALIST documented in this encounter Plan of Treatment Upcoming Encounters Date Type Department Care Team (Late st Contact Info) Description 06/03/2024 1:00 PM NEUROSCIENCE SPECIALIST Appointment [facility] - Rheumatology [address] [place] [address] [phone] 06/03/2024 2:00 PM NEUROSCIENCE SPECIALIST Office Visit [facility] - Rheumatology [address] [place] [address] Gloria Smith MD [address] [place] [phone] documented as of this encounter Procedures Procedure Name Priority Date/Time Associated Diagnosis Comments ERYTHROCYTE SEDIMENTATION RATE Routine 06/10/2013 3:30 PM NEUROSCIENCE SPECIALIST Rheumatoid Arthritis (Hcc) CBC W AUTO DIFFERENTIAL Routine 06/10/2013 3:30 PM NEUROSCIENCE SPECIALIST Rheumatoid Arthritis (Hcc) COMPREHENSIVE METABOLIC PANEL Routine 06/10/2013 3:30 PM NEUROSCIENCE SPECIALIST Rheumatoid Arthritis (Hcc) documented in this encounter Results * SED RATE WESTERGREN (06/10/2013 3:30 PM NEUROSCIENCE SPECIALIST) Erythrocyte Sedimentation Rate Westergren 29 0 - 30 mm/hr [facility] ACCOUNT BILL Blood specimen (specimen) BLOOD SPECIMEN / Unknown 06/10/2013 3:30 PM NEUROSCIENCE SPECIALIST 06/10/2013 5:37 PM NEUROSCIENCE SPECIALIST Narrative Resulting Agency Comment [facility] [place] [address] [facility] ??[facility] [id number] Isidro Heredia MD LAB - HEMATOLOGY OR DERABLES [facility] ACCOUNT BILL * (ABNORMAL) COMPREHENSIVE METABOLIC PANEL (06/10/2013 3:30 PM NEUROSCIENCE SPECIALIST) Glucose 155(H) 65 - 99 mg/dL [facility] ACCOUNT BILL BUN 21 6 - 24 mg/dL [facility] ACCOUNT BILL Creatinine 0.91 0.76 - 1.27 mg/dL [facility] ACCOUNT BILL eGFR by MDRD 98 >59 mL/min/1.7 3 [facility] ACCOUNT BILL eGFR by MDRD 113 >59 mL/min/1.7 3 [facility] ACCOUNT BILL BUN/Creatinine Ratio 23(H) 9 - 20 [facility] ACCOUNT BILL Sodium 139 134 - 144 mmol/L [facility] ACCOUNT BILL Potassium 4.2 3.5 - 5.2 mmol/L [facility] ACCOUNT BILL Chloride 102 97 - 108 mmol/L [facility] ACCOUNT BILL CO2 20 19 - 28 mmol/L [facility] ACCOUNT BILL Calcium 9.0 8.7 - 10.2 mg/dL [facility] ACCOUNT BILL Protein Total 6.9 6.0 - 8.5 g/dL [facility] ACCOUNT BILL Albumin 4.3 3.5 - 5.5 g/dL [facility] ACCOUNT BILL Globulin Total 2.6 1.5 - 4.5 g/dL [facility] ACCOUNT BILL Albumin/Globulin Ratio 1.7 1.1 - 2.5 [facility] ACCOUNT BILL Bilirubin Total 0.4 0.0 - 1.2 mg/dL [facility] ACCOUNT BILL Alkaline Phosphatase 78 39 - 117 IU/L [facility] ACCOUNT BILL AST 21 0 - 40 IU/L [facility] ACCOUNT BILL ALT 24 0 - 44 IU/L [facility] ACCOUNT BILL Blood specimen (specimen) BLOOD SPECIMEN / Unknown 06/10/2013 3:30 PM NEUROSCIENCE SPECIALIST 06/10/2013 5:37 PM NEUROSCIENCE SPECIALIST Narrative Resulting Agency Comment [facility] [address] ??[facility] [id number] Isidro Heredia MD LAB - CHEMISTRY ORD ERABLES [facility] ACCOUNT BILL * (ABNORMAL) CBC W AUTO DIFFERENTIAL (06/10/2013 3:30 PM NEUROSCIENCE SPECIALIST) WBC 9.9 3.4 - 10.8 x10E3/uL [facility] ACCOUNT BILL RBC 4.70 4.14 - 5.80 x10E6/uL [facility] ACCOUNT BILL Hemoglobin 13.6 12.6 - 17.7 g/dL [facility] ACCOUNT BILL Hematocrit 40.6 37.5 - 51.0 % [facility] ACCOUNT BILL MCV 86 79 - 97 fL [facility] ACCOUNT BILL MCH 28.9 26.6 - 33.0 pg [facility] ACCOUNT BILL MCHC 33.5 31.5 - 35.7 g/dL [facility] ACCOUNT BILL RDW 16.3(H) 12.3 - 15.4 % [facility] ACCOUNT BILL Platelet Count 185 155 - 379 x10E3/uL [facility] ACCOUNT BILL Granulocytes % 82(H) 40 - 74 % [facility] ACCOUNT BILL Lymphocytes % 13(L) 14 - 46 % [facility] ACCOUNT BILL Monocytes % 4 4 - 12 % [facility] ACCOUNT BILL Eosinophils % 1 0 - 5 % [facility] ACCOUNT BILL Basophils % 0 0 - 3 % [facility] ACCOUNT BILL Immature Cells NOT NEEDED [facility] ACCOUNT BILL Comment:Ancillary determined the test is not needed Granulocytes Absolute 8.2(H) 1.4 - 7.0 x10E3/uL [facility] ACCOUNT BILL [...] Blood specimen (specimen) BLOOD SPECIMEN / Unknown 06/10/2013 3:30 PM NEUROSCIENCE SPECIALIST 06/10/2013 5:37 PM NEUROSCIENCE SPECIALIST Narrative Resulting Agency Comment [facility] [address] ??[facility] [id number] Isidro Heredia MD LAB - HEMATOLOGY OR DERABLES [facility] ACCOUNT BILL documented in this encounter Visit Diagnoses Diagnosis Rheumatoid arthritis(714.0) (HCC)- Primary Rheumatoid arthritis documented in this encounter Care Teams Buckle Strap Drum Operator Relationship Specialty Start Date End Date Nolberto Nicole MD PCP - General 07/21/08 12/30/13 Isidro Heredia MD Rheumatology 02/09/11 documented as of this encounter
--- OUTSIDE RECORDS SUMMARY | 2024-05-03 04:14 | XMS_ITS | Encounter Summary ---
Author Organization [facility] Address [address] [place] [address] Care Team Providers Care Health Information Systems Technician Name Role Phone Nolberto Nicole MD Primary Care Provider [phone] Isidro Heredia MD Unavailable Reason for Visit * Reason Onset Date Comments MEDICATION REFILL 03/17/2013 Encounter Details Date Type Department Care Team (Late st Contact Info) Description 03/17/2013 Refill [facility] - Rheumatology [address] [place] [address] Isidor Heredia MD [address] [place] [address] MEDICATION REFILL Social History Tobacco Use [...] * Telephone Encounter - Erika Julien - 03/17/2013 3:14 PM CST Informed pt of message for refill RIDGE MAKER * Telephone Encounter - Rea Hagan MA - 03/17/2013 2:54 PM CST This is ok. Mtx was sent to pharm. Can someone put in the reason for visit RIDGE MAKER * Telephone Encounter - Carey Loza - 03/17/2013 10:42 AM CST Patient is having issues with his referral to see the Doctor but needs a script [facility] for his methotrexate. RIDGE MAKER documented in this encounter Plan of Treatment Upcoming Encounters Date Type Department Care Team (Late st Contact Info) Description 06/03/2024 1:00 PM CARTRIDGE MAKER Appointment [facility] - Rheumatology [address] [place] [address] 06/03/2024 2:00 PM CARTRIDGE MAKER Office Visit [facility] - Rheumatology [address] [place] [phone] Gloria Smith MD [address] [place] [phone] documented as of this encounter Visit Diagnoses Not on filedocumented in this encounter Care Teams Health Information Systems Technician Relationship Specialty Start Date End Date Nolberto Nicole MD PCP - General 07/21/08 12/30/13 Isidro Heredia MD Rheumatology 02/09/11 documented as of this encounter
--- OUTSIDE RECORDS SUMMARY | 2024-05-03 04:14 | XMS_ITS | Encounter Summary ---
Author Organization [facility] Address [address] [place] [address] Care Team Providers Care Tool Dispatcher Name Role Phone Nolberto Nicole MD Primary Care Provider Isidro Heredia MD Unavailable [phone] Reason for Visit * Reason Comments Rheumatoid Arthritis Pain Joint upper and lower extr emities all over especially the rt hand and knees * Evaluate & Treat (Routine) - Closed Specialty Diagnoses / Procedures Referred By Lawrence t Referred To Contact Diagnoses Rheumatoid arthritis(714.0) (HCC) Procedures [place] OFFICE VISIT DURING HOURS Nolberto Nicole MD [address] [place] [address] Isidro Heredia MD [address] [place] [address] Referral ID Status Reason Start Date Expiration Date Visits Re quested Visits Authorized [id number] Closed 08/15/2012 02/11/2013 1 5 Encounter Details Date Type Department Care Team (Late st Contact Info) Description 02/10/2013 5:00 PM CDT Office Visit [facility] [employer] - Rheumatology [address] [place] [id number] Isidro Heredia MD [address] [place] [address] Rheumatoid arthritis (HCC) (Primary Dx); Osteopenia; Chronic pain syndrome Social History Tobacco Use [...] Sign Reading Time Taken Comments Blood Pressure 122/98 02/10/2013 5:10 PM CDT Pulse 88 02/10/2013 5:10 PM CDT Temperature - - Respiratory Rate - - Oxygen Saturation - - Inhaled Oxygen Concentration - - Weight 114.3 kg (252 lb) 02/10/2013 5:10 PM CDT Height - - Body Mass Index 36.16 01/09/2013 11:48 AM CDT documented in this encounter Progress Notes * Rea Hagan MA - 02/20/2013 2:15 PM CDTQuick Note: Sent lab letter to pt * Isidro Heredia MD - 02/18/2013 6:13 PM CDTQuick Note: [facility] 12.900 Test for ra neg test for lupus tr pos * Isidro Heredia MD - 02/10/2013 5:17 PM CDT Subjective: Chalino Deng 52 y.o. male is here for Chief Complaint Patient presents with ??? Rheumatoid Arthritis ??? Pain Joint upper and lower extremities all over especially the rt hand and knees HPI: On mtx rituxan pred 10 mg bid For and Percocet for chronic pain Pain Level: 9/10 everywhere hands knees ankles neck Am stiffness 1 hr Global 7/10 [...] Active Take by mouth once daily. ??? Ndvielhymjk-Wqzajqjyt-Fnd C-Mn (GLUCOSAMINE CHONDR 1500 COMPLX PO) Active [...] wn wm in nad a/o x3 BP 122/98 Pulse 88 Wt 114.306 kg (252 lb) Head: perrla, [...] 7/SJ, 0/muscle tenderness or weakness LUE: 13/TJ, 4/SJ, 0/muscle tenderness or weakness RLE: 1/TJ, 1/SJ, 0/muscle tenderness or weakness LLE: 1/TJ, 1/SJ, 0/muscle tenderness or weakness Assessment: Encounter Diagnoses Name Primary? Rheumatoid arthritis Yes ??? Osteopenia ??? Chronic pain syndrome poorly controlled ra and Chronic pain same meds but try for actemra Plan: Plan Orders Placed This Encounter ??? CBC W AUTO DIFFERENTIAL ??? COMPREHENSIVE METABOLIC PANEL ??? C-REACTIVE PROTEIN ??? SED RATE WESTERGREN ??? ROSA BLOOD SCREEN W/REFLEX TITER ??? RHEUMATOID FACTOR BLOOD QUANTITATIVE ??? CYCLIC CITRUL PEPTIDE ANTIBODY IGG/IGA (CCP) ??? oxycodone-acetaminophen (PERCOCET) 5-325 MG tablet Sig: Take 1 Tab by mouth every 6 hours as needed for Pain. Dispense: 120 Tab Refill: 0 Follow up in office in 4 weeks documented in this encounter Plan of Treatment Upcoming Encounters Date Type Department Care Team (Late st Contact Info) Description 06/03/2024 1:00 PM MEDICAL COMMUNICATION SPECIALIST Appointment [facility] - Rheumatology [address] [place] [address] [phone] 06/03/2024 2:00 PM MEDICAL COMMUNICATION SPECIALIST Office Visit [facility] - Rheumatology [address] [place] [address] [phone] Gloria Smith MD [address] [place] [phone] documented as of this encounter Procedures Procedure Name Priority Date/Time Associated Diagnosis Comments CYCLIC CITRUL PEPTIDE ANTIBODY IGG/IGA (CCP) Routine 02/10/2013 5:37 PM CDT Rheumatoid Arthritis (Hcc) KAMI STAINING PATTERNS REFLEXED Routine 02/10/2013 5:37 PM CDT Rheumatoid Arthritis (Hcc) RHEUMATOID FACTOR BLOOD QUANTITATIVE Routine 02/10/2013 5:37 PM CDT Rheumatoid Arthritis (Hcc) ROSA BLOOD SCREEN W/REFLEX TITER Routine 02/10/2013 5:37 PM CDT Rheumatoid Arthritis (Hcc) C-REACTIVE PROTEIN Routine 02/10/2013 5: 33 PM CDT Rheumatoid Arthritis (Hcc) ERYTHROCYTE SEDIMENTATION RATE Routine 02/10/2013 5:33 PM CDT Rheumatoid Arthritis (Hcc) CBC W AUTO DIFFERENTIAL Routine 02/10/2013 5:33 PM CDT Rheumatoid Arthritis (Hcc) COMPREHENSIVE METABOLIC PANEL Routine 02/10/2013 5:33 PM CDT Rheumatoid Arthritis (Hcc) documented in this encounter Results * (ABNORMAL) KAMI STAINING PATTERNS ([facility]) (02/10/2013 5:37 PM CDT) Homogeneous Pattern 1:160(H) [facility] ACCOUNT BILL Nucleolar Pattern NOT NEEDED [facility] ACCOUNT BILL Comment:Ancillary determined the test is not needed Speckled Pattern NOT NEEDED [facility] ACCOUNT BILL Comment:Ancillary determined the test is not needed Centromere Pattern NOT NEEDED [facility] ACCOUNT BILL Comment:Ancillary determined the test is not needed Note [facility] ACCOUNT BILL Comment: A positive ROSA result may occur in healthy individuals or be associated with a variety of diseases. ??See interpre- tation below: ? . Pattern ?Antigen Detected ??Suggested Disease Association ? Homogeneous ??DNA(ds,ss,), ?High titers - SLE (Smooth) ? Histone ? Speckled ? Sm, F[employer]CH[employer]IC APPRENTICE, SCL-70, ??SLE,MCTD,Scleroderma,Sjogrens ? SS-A/SS-B ? Nucleolar ?SCL-70, PM-1/SCL ??High titers Scleroderma Poly- ? myositis/Scleroderma Overlap ? Centromere ?? Centromere ?PSS w/Crest syndrome variable ?? 02/10/2013 5:37 PM CDT 02/10/2013 7:03 PM CDT Narrative Resulting Agency Comment [facility] [address] [place] [address] ??[facility] [phone] Isidro Hreedia MD LAB - PATHOLOGY/CYT OLOGY ORDERABLES [facility] ACCOUNT BILL * CYCLIC CITRUL PEPTIDE ANTIBODY IGG/IGA ([facility]P) (02/10/2013 5:37 PM CDT) CCP Antibodies IgG/IgA 14 0 - 19 units [facility] ACCOUNT BILL Comment: ? Negative ? <20 ? Weak positive ?20 - 39 ? Moderate positive ??40 - 59 ? Strong positive ?>59 BLOOD SPECIMEN / Unknown 02/10/2013 5:37 PM CDT 02/10/2013 7:03 PM CDT Narrative Resulting Agency Comment [facility] [address] ??[facility] [phone] Isidro Heredia MD LAB - SEROLOGY ORDE RABDO Performing Organization Address [facility]/ZIP Co de Phone Number [facility] ACCOUNT BILL * RHEUMATOID FACTOR BLOOD QUANTITATIVE (02/10/2013 5:37 PM CDT) Rheumatoid Factor 9.6 0.0 - 13.9 IU/mL [facility] ACCOUNT BILL Blood specimen (specimen) BLOOD SPECIMEN / Unknown 02/10/2013 5:37 PM CDT 02/10/2013 7:03 PM CDT Narrative Resulting Agency Comment [facility] [address] [place] [address] ??[facility] [phone] Isidro Heredia MD LAB - CHEMISTRY ORD ERABLES Performing Organization Address [facility] de Phone Number [facility] ACCOUNT BILL * ROSA BLOOD SCREEN W/REFLEX TITER (02/10/2013 5:37 PM CDT) ROSA See patterns [facility] ACCOUNT BILL Comment: ?Negative ?? <1:80 ?Borderline ??1:80 ?Positive ?? >1:80 Blood specimen (specimen) BLOOD SPECIMEN / Unknown 02/10/2013 5:37 PM CDT 02/10/2013 7:03 PM CDT Narrative Resulting Agency Comment [facility] [phone] ??[facility] [phone] Isidro Heredia MD LAB - CHEMISTRY ORD ERABLES Performing Organization Address [facility] Co de Phone Number [facility] ACCOUNT BILL * SED RATE WESTERGREN (02/10/2013 5:33 PM CDT) Erythrocyte Sedimentation Rate Westergren 26 0 - 30 mm/hr [facility] ACCOUNT BILL Blood specimen (specimen) BLOOD SPECIMEN / Unknown 02/10/2013 5:33 PM CDT 02/10/2013 7:03 PM CDT Narrative Resulting Agency Comment [facility] [phone] ??[facility] [phone] Isidro Heredia MD LAB - HEMATOLOGY OR DERABLES Performing Organization Address [facility] de Phone Number [facility] ACCOUNT BILL * C-REACTIVE PROTEIN (02/10/2013 5:33 PM CDT) C-Reactive Protein 4.9 0.0 - 4.9 mg/L [facility] ACCOUNT BILL Blood specimen (specimen) BLOOD SPECIMEN / Unknown 02/10/2013 5:33 PM CDT 02/10/2013 7:03 PM CDT Narrative Resulting Agency Comment [facility] [phone] ??[facility] [phone] Isidro Heredia MD LAB - CHEMISTRY ORD ERABLES Performing Organization Address [facility] Co de Phone Number [facility] ACCOUNT BILL * (ABNORMAL) COMPREHENSIVE METABOLIC PANEL (02/10/2013 5:33 PM CDT) Glucose 109(H) 65 - 99 mg/dL [facility] ACCOUNT BILL BUN 19 6 - 24 mg/dL [facility] ACCOUNT BILL Creatinine 1.25 0.76 - 1.27 mg/dL [facility] ACCOUNT BILL eGFR by MDRD 67 >59 mL/min/1.7 3 [facility] ACCOUNT BILL eGFR by MDRD 77 >59 mL/min/1.7 3 [facility] ACCOUNT BILL BUN/Creatinine Ratio 15 9 - 20 [facility] ACCOUNT BILL Sodium 139 134 - 144 mmol/L [facility] ACCOUNT BILL Potassium 5.0 3.5 - 5.2 mmol/L [facility] ACCOUNT BILL Chloride 103 97 - 108 mmol/L [facility] ACCOUNT BILL CO2 20 19 - 28 mmol/L [facility] ACCOUNT BILL Calcium 9.6 8.7 - 10.2 mg/dL [facility] ACCOUNT BILL Protein Total 7.6 6.0 - 8.5 g/dL [facility] ACCOUNT BILL Albumin 4.5 3.5 - 5.5 g/dL [facility] ACCOUNT BILL Globulin Total 3.1 1.5 - 4.5 g/dL [facility] ACCOUNT BILL Albumin/Globulin Ratio 1.5 1.1 - 2.5 [facility] ACCOUNT BILL Bilirubin Total 0.3 0.0 - 1.2 mg/dL [facility] ACCOUNT BILL Alkaline Phosphatase 106(H) 44 - 102 IU/L [facility] ACCOUNT BILL AST 32 0 - 40 IU/L [facility] ACCOUNT BILL ALT 26 0 - 44 IU/L [facility] ACCOUNT BILL Blood specimen (specimen) BLOOD SPECIMEN / Unknown 02/10/2013 5:33 PM CDT 02/10/2013 7:03 PM CDT Narrative Resulting Agency Comment [facility] [address] ??[facility] [phone] Isidro Heredia MD LAB - CHEMISTRY ORD ERABLES [facility] ACCOUNT BILL * (ABNORMAL) CBC W AUTO DIFFERENTIAL (02/10/2013 5:33 PM CDT) WBC 6.2 3.4 - 10.8 x10E3/uL [facility] ACCOUNT BILL RBC 4.65 4.14 - 5.80 x10E6/uL [facility] ACCOUNT BILL Hemoglobin 13.4 12.6 - 17.7 g/dL [facility] ACCOUNT BILL Hematocrit 40.8 37.5 - 51.0 % [facility] ACCOUNT BILL MCV 88 79 - 97 fL [facility] ACCOUNT BILL MCH 28.8 26.6 - 33.0 pg [facility] ACCOUNT BILL MCHC 32.8 31.5 - 35.7 g/dL [facility] ACCOUNT BILL RDW 16.3(H) 12.3 - 15.4 % [facility] ACCOUNT BILL Platelet Count 252 155 - 379 x10E3/uL [facility] ACCOUNT BILL Granulocytes % 64 40 - 74 % [facility] ACCOUNT BILL Lymphocytes % 23 14 - 46 % [facility] Monocytes % 10 4 - 12 % [facility] ACCOUNT BILL Eosinophils % 2 0 - 5 % [facility] ACCOUNT BILL Basophils % 1 0 - 3 % [facility] ACCOUNT BILL Immature Cells NOT NEEDED [facility] ACCOUNT BILL Comment:Ancillary determined the test is not needed Granulocytes Absolute 3.9 1.4 - 7.0 x10E3/uL [facility] ACCOUNT BILL Lymphocytes Absolute 1.4 0.7 - 3.1 x10E3/uL [facility] ACCOUNT BILL Monocytes Absolute 0.6 0.1 - 0.9 x10E3/uL [facility] ACCOUNT BILL [...] Blood specimen (specimen) BLOOD SPECIMEN / Unknown 02/10/2013 5:33 PM CDT 02/10/2013 7:03 PM CDT Narrative Resulting Agency Comment [facility] [place] [phone] [facility] ??[facility] [phone] Isidro Heredia MD LAB - HEMATOLOGY OR DERABLES [facility] ACCOUNT BILL documented in this encounter Visit Diagnoses Diagnosis Rheumatoid arthritis(714.0) (HCC)- Primary Rheumatoid arthritis Osteopenia Disorder of bone and cartilage, unspecified Chronic pain syndrome documented in this encounter Care Teams Tool Dispatcher Relationship Specialty Start Date End Date Nolberto Nicole MD PCP - General 07/21/08 12/30/13 Isidro Heredia MD Rheumatology 02/09/11 documented as of this encounter
--- OUTSIDE RECORDS SUMMARY | 2024-05-03 04:14 | XMS_ITS | Encounter Summary ---
Author Organization [facility] Address [address] [facility] [place] [address] Care Team Providers Care Security Officers And Guards Name Role Phone Nolberto Nicole MD Primary Care Provider Isidro Heredia MD Unavailable Reason for Visit * Reason Comments Rheumatoid Arthritis needs to have CXR t o rule out TB for Rituxan pain scale: 7/10 am stiffness: 2 hours toelrating meds well Headache constant and does no t go away. above the rt eye Pain Joint obdulia knees and hands, shoulders Swelling hands * Evaluate & Treat (Routine) - Closed Specialty Diagnoses / Procedures Referred By Lawrence t Referred To Contact Diagnoses Rheumatoid arthritis(714.0) ([facility]) Procedures CA OFFICE VISIT DURING HOURS Nolberto Nicole MD [address] [place] [address] Isidro Heredia MD [address] [place] [address] Referral ID Status Reason Start Date Expiration Date Visits Re quested Visits Authorized [id number] Closed 02/20/2012 08/18/2012 1 5 Encounter Details Date Type Department Care Team (Late st Contact Info) Description 07/22/2012 3:30 PM CDT Office Visit [facility] - Rheumatology [address] [place] [address] Isidro Heredia MD [address] [facility] [place] [address] Rheumatoid arthritis (HCC) (Primary Dx); Screening examination for pulmonary tuberculosis; Sinusitis chronic, ethmoidal Social History Tobacco Use Types Packs/Day Years [...] Sign Reading Time Taken Comments Blood Pressure 128/98 07/22/2012 3:54 PM CDT Pulse - - Temperature - - Respiratory Rate - - Oxygen Saturation - - Inhaled Oxygen Concentration - - Weight 112.9 kg (248 lb 12.8 oz) 07/22/2012 3:54 PM CDT Height - - Body Mass Index 35.7 05/15/2011 5:19 PM CIRCULAR KNITTER documented in this encounter Progress Notes * Rea Hagan MA - 09/16/2012 5:08 PM CDTQuick Note: Pt informed at his office visit today. Dr Valiente will discuss treatment plan * Isidro Heredia MD - 08/04/2012 9:36 PM CDTQuick Note: quantiferon pos mtx ok * Isidro Heredia MD - 07/22/2012 4:32 PM CDT Subjective: Chalino Deng 51 y.o. male is here for Chief Complaint Patient presents with ??? Rheumatoid Arthritis needs to have CXR to rule out TB for Rituxan pain scale: 7/10 am stiffness: 2 hours toelrating meds well ??? Headache constant and does not go away. above the rt eye ??? Pain Joint obdulia knees and hands, shoulders ??? Swelling hands HPI: On mtx enbrel percocet and naprosyn pred 10 mg bid for ra He needs cxr and quantiferon bec he cant have ppd hx of tbc Pain Level: 8/10 hands wrists knees shoulders Am stiffness 2 hrs Global 7/10 Fatigue yes Medication Side Effects no He still has freq shafer Cranial mri no cranial lesion Ethmoid and sphenoid sinus Current Outpatient Prescriptions on File Prior to Visit Medication Sig Dispense Refill ??? metaxalone (SKELAXIN) 800 MG tablet Take 1 Tab by mouth 3 times daily. 270 Tab 1 ??? adalimumab (HUMIRA PEN) 40 MG/0.8ML injection Inject 0.8 mL subcutaneously every 14 days. (3 month Supply) X 3 refills = 1 yr 3 Kit 3 ??? tamsulosin CR 24hr (FLOMAX) 0.4 MG capsule Take 0.4 mg by mouth once daily. Take 30 minutes after a meal at the same time each day. ??? esomeprazole (NEXIUM) 40 MG capsule Take 1 Cap by mouth daily before breakfast. 90 Cap 3 ??? naproxen (NAPROSYN) 500 MG tablet Take 1 Tab by mouth 2 times daily. 180 Tab 3 ??? terbinafine (LAMISIL) 250 MG tablet Take 1 Tab by mouth once daily. 30 Tab 1 ??? fish oil/omega-3 fatty acids (FISH OIL) 1000 MG capsule Take 1,000 mg by mouth 2 times daily. ??? niacin, Immediate Release, 500 MG tablet Take 500 mg by mouth at bedtime. ??? Multiple Vitamin (MULTI-VITAMIN PO) Take by mouth once daily. ??? Tusstkykcxw-Pcakmorwc-Znv C-Mn (GLUCOSAMINE CHONDR 1500 COMPLX PO) Take [...] dysuria, frequency, urgency, kidney stones. MS: NEURO: , seizures, dizziness, confusion, numbness, tingling HEME/LYMPH: No bruising or bleeding, swollen glands SKIN: No rash, itching, dry skin ENDO No Heat or cold intol, no hyper or hypoglycemia PSYCH: No memory loss, disorientation, confusion, mood changes, ALLERGY/IMMU No runny nose, tearing, sneezing, cough, eye irritation Systems reviewed Objective: General Appearance Physical Exam:wd wn wm in nad BP 128/98 Wt 248 lb 12.8 oz (112.855 kg) Head: perrla, eyes no irritation, vision [...] 7/SJ, 0/muscle tenderness or weakness LUE: 13/TJ, 6/SJ, 0/muscle tenderness or weakness RLE: 1/TJ, 1/SJ, 0/muscle tenderness or weakness LLE: 1/TJ, 1/SJ, 0/muscle tenderness or weakness Assessment: Encounter Diagnoses Name Primary? Rheumatoid arthritis Yes ??? Screening examination for pulmonary tuberculosis ??? Sinusitis chronic, ethmoidal poorly controlled ra sinusitis Add levaquin Begin rituxan cxr clear Plan: Plan Orders Placed This Encounter ??? XR CHEST PA AND LATERAL Standing Status: Future Number of Occurrences: 1 Standing Expiration Date: 07/22/2013 Order Specific Question: Exam to be performed? Answer: Per Radiologist protocol ??? CBC W AUTO DIFFERENTIAL ??? COMPREHENSIVE METABOLIC PANEL ??? C-REACTIVE PROTEIN ??? SED RATE WESTERGREN ??? QUANTIFERON TB-GOLD ??? oxycodone-acetaminophen (PERCOCET) 5-325 MG tablet Sig: Take 1 Tab by mouth every 6 hours as needed for Pain. Dispense: 120 Tab Refill: 0 ??? methotrexate 2.5 MG tablet Sig: Take 6 Tabs by mouth every 7 days. Dispense: 72 Tab Refill: 3 ??? predniSONE (DELTASONE) 10 MG tablet Sig: Take 1 Tab by mouth 2 times daily. Dispense: 180 Tab Refill: 3 ??? levofloxacin (LEVAQUIN) 500 MG tablet Sig: Take 1 Tab by mouth once daily. Dispense: 7 Tab Refill: 0 Add levaquin for sinus headaches Follow up in office in 4 week * Rea Hagan MA - 07/22/2012 3:56 PM CDT Chief Complaint Patient presents with ??? Rheumatoid Arthritis needs to have CXR to rule out TB for Rituxan pain scale: 7/10 am stiffness: 2 hours toelrating medswell ??? Headache constant and does not go away. above the rt eye ??? Pain Joint obdulia knees and hands, shoulders ??? Swelling hands BP 128/98 Wt 248 lb 12.8 oz (112.855 kg) documented in this encounter Plan of Treatment Upcoming Encounters Date Type Department Care Team (Late st Contact Info) Description 06/03/2024 1:00 PM CIRCULAR KNITTER Appointment [facility] - Rheumatology [address] [place] [address] 06/03/2024 2:00 PM CIRCULAR KNITTER Office Visit [facility] - Rheumatology [address] [place] [address] Gloria Smith MD [address] [place] [phone] documented as of this encounter Procedures Procedure Name Priority Date/Time Associated Diagnosis Comments QUANTIFERON IN TUBE REFLEXED Routine 07/22/2012 4:43 PM CDT Screening examination for pulmonary tuberculosis QUANTIFERON TB-GOLD Routine 07/22/2012 4 :43 PM CDT Screening examination for pulmonary tuberculosis C-REACTIVE PROTEIN Routine 07/22/2012 4: 42 PM CDT Rheumatoid arthritis (HCC) ERYTHROCYTE SEDIMENTATION RATE Routine 07/22/2012 4:42 PM CDT Rheumatoid arthritis (HCC) CBC W AUTO DIFFERENTIAL Routine 07/22/2012 4:42 PM CDT Rheumatoid arthritis (HCC) COMPREHENSIVE METABOLIC PANEL Routine 07/22/2012 4:42 PM CDT Rheumatoid arthritis (HCC) documented in this encounter Results * XR CHEST PA AND LATERAL (09/10/2012 4:17 PM CDT) Anatomical Region Laterality Modality Chest Other Narrative 09/10/2012 4:17 PM CDT Isidro Heredia MD ? 09/10/2012 ??4:17 PM Cxr: poor inspiration; no active disease Procedure Note Isidro Heredia MD - 09/10/2012 4:15 PM CDT Cxr: poor inspiration; no active disease Isidro Heredia MD DIAGNOSTIC IMAGING ORDERABLES * (ABNORMAL) QUANTIFERON IN TUBE REFLEXED [...] 6:18 PM CDT Narrative Resulting Agency Comment [facility] ??[facility] [phone] Isidro Heredia MD LAB - CHEMISTRY ORD KingtopBLES [facility] ACCOUNT BILL * QUANTIFERON TB-GOLD (07/22/2012 4:43 PM CDT) Pathologist [facility] QuantiFERON Incubation [facility] ACCOUNT BILL Comment: Incubated, specimen forwarded to [facility], [place], [place] for completion of the assay. This specimen has been tested 3 times with 2 out of 3 values positive. ??A repeat specimen performed in 2-3 weeks time may give a consistent negative result. Blood specimen (specimen) BLOOD SPECIMEN / Unknown 07/22/2012 4:43 PM CDT 07/22/2012 6:18 PM CDT Narrative Resulting Agency Comment [facility] [id number] [place] [address] ??[facility] [phone] Isidro Heredia MD LAB - CHEMISTRY ORD [employer] [facility] ACCOUNT BILL * (ABNORMAL) SED RATE WESTERGREN (07/22/2012 4:42 PM CDT) Erythrocyte Sedimentation Rate Westergren 39(H) 0 - 15 mm/hr [facility] ACCOUNT BILL Blood specimen (specimen) BLOOD SPECIMEN / Unknown 07/22/2012 4:42 PM CDT 07/22/2012 6:18 PM CDT Narrative Resulting Agency Comment [facility] [address] ??[facility] [phone] Isidro Heredia MD LAB - HEMATOLOGY OR DERABLES Performing Organization Address City/[facility]/ZIP Co de Phone Number [facility] ACCOUNT BILL * (ABNORMAL) C-REACTIVE PROTEIN (07/22/2012 4:42 PM CDT) C-Reactive Protein 5.7(H) 0.0 - 4.9 mg/L [facility] ACCOUNT BILL Blood specimen (specimen) BLOOD SPECIMEN / Unknown 07/22/2012 4:42 PM CDT 07/22/2012 6:18 PM CDT Narrative Resulting Agency Comment [facility] ??[facility] [phone] Isidro Heredia MD LAB - CHEMISTRY ORD ERABLES [facility] ACCOUNT BILL * COMPREHENSIVE METABOLIC PANEL (07/22/2012 4:42 PM CDT) Glucose 95 65 - 99 mg/dL [facility] ACCOUNT BILL BUN 21 6 - 24 mg/dL [facility] ACCOUNT BILL Creatinine 1.06 0.76 - 1.27 mg/dL [facility] ACCOUNT BILL eGFR by MDRD 82 >59 mL/min/1.7 3 [facility] ACCOUNT BILL eGFR by MDRD 95 >59 mL/min/1.7 3 [facility] ACCOUNT BILL BUN/Creatinine Ratio 20 9 - 20 [facility] ACCOUNT BILL Sodium 137 134 - 144 mmol/L [facility] ACCOUNT BILL Potassium 4.3 3.5 - 5.2 mmol/L [facility] ACCOUNT BILL Chloride 102 97 - 108 mmol/L [facility] ACCOUNT BILL CO2 21 20 - 32 mmol/L [facility] ACCOUNT BILL Calcium 9.3 8.7 - 10.2 mg/dL [facility] ACCOUNT BILL Protein Total 7.3 6.0 - 8.5 g/dL [facility] ACCOUNT BILL Albumin 4.4 3.5 - 5.5 g/dL [facility] ACCOUNT BILL Globulin Total 2.9 1.5 - 4.5 g/dL [facility] ACCOUNT BILL Albumin/Globulin Ratio 1.5 1.1 - 2.5 [facility] ACCOUNT BILL Bilirubin Total 0.4 0.0 - 1.2 mg/dL [facility] ACCOUNT BILL Alkaline Phosphatase 107 25 - 150 IU/L [facility] ACCOUNT BILL AST 21 0 - 40 IU/L [facility] ACCOUNT BILL ALT 24 0 - 44 IU/L [facility] ACCOUNT BILL Blood specimen (specimen) BLOOD SPECIMEN / Unknown 07/22/2012 4:42 PM CDT 07/22/2012 6:18 PM CDT Narrative Resulting Agency Comment [facility] [address] ??[facility] [phone] Isidro Heredia MD LAB - CHEMISTRY ORD ERABLES [facility] ACCOUNT BILL * (ABNORMAL) CBC W AUTO DIFFERENTIAL (07/22/2012 4:42 PM CDT) WBC 11.7(H) 4.0 - 10.5 x10E3/uL [facility] ACCOUNT BILL RBC 4.71 4.14 - 5.80 x10E6/uL [facility] ACCOUNT BILL Hemoglobin 13.7 12.6 - 17.7 g/dL [facility] ACCOUNT BILL Hematocrit 40.5 37.5 - 51.0 % [facility] ACCOUNT BILL MCV 86 79 - 97 fL [facility] ACCOUNT BILL MCH 29.1 26.6 - 33.0 pg [facility] ACCOUNT BILL MCHC 33.8 31.5 - 35.7 g/dL [facility] ACCOUNT BILL RDW 14.9 12.3 - 15.4 % [facility] ACCOUNT BILL Platelet Count 214 140 - 415 x10E3/uL [facility] ACCOUNT BILL Granulocytes % 59 40 - 74 % [facility] ACCOUNT BILL Lymphocytes % 33 14 - 46 % [facility] ACCOUNT BILL Monocytes % 6 4 - 13 % [facility] ACCOUNT BILL Eosinophils % 1 0 - 7 % [facility] ACCOUNT BILL Basophils % 1 0 - 3 % [facility] ACCOUNT BILL Immature Cells NOT NEEDED [facility] ACCOUNT BILL Comment:Ancillary determined the test is not needed Granulocytes Absolute 6.9 1.8 - 7.8 x10E3/uL [facility] ACCOUNT BILL Lymphocytes Absolute 3.8 0.7 - 4.5 x10E3/uL [facility] ACCOUNT BILL Monocytes Absolute 0.7 0.1 - 1.0 x10E3/uL [facility] ACCOUNT BILL Eosinophils Absolute 0.1 [...] Blood specimen (specimen) BLOOD SPECIMEN / Unknown 07/22/2012 4:42 PM CDT 07/22/2012 6:18 PM CDT Narrative Resulting Agency Comment [facility] [address] ??[facility] [id number] Isidro Heredia MD LAB - HEMATOLOGY OR DERABLES [facility] ACCOUNT BILL documented in this encounter Visit Diagnoses Diagnosis Rheumatoid arthritis(714.0) (HCC)- Primary Rheumatoid arthritis Screening examination for pulmonary tuberculosis Sinusitis chronic, ethmoidal Chronic ethmoidal sinusitis Rheumatoid arthritis(714.0) (HCC) Rheumatoid arthritis documented in this encounter Care Teams Security Officers And Guards Relationship Specialty Start Date End Date Nolberto Nicole MD PCP - General 07/21/08 12/30/13 Isidro Heredia MD Rheumatology 02/09/11 documented as of this encounter
--- OUTSIDE RECORDS SUMMARY | 2024-05-03 04:14 | XMS_ITS | Encounter Summary ---
Author Organization [facility] Address [address] [place] [address] Care Team Providers Care Boat Ride Operator Name Role Phone Nolberto Nicole MD Primary Care Provider Isidro Heredia MD Unavailable [phone] Reason for Visit * Treatment (Routine) - Closed Specialty Diagnoses / Procedures Referred By Lawrence shah Referred To Contact Infusion Therapy Nurse Diagnoses Rheumatoid arthritis(714.0) ([facility]) Procedures SD INJECTION RITUXIMAB 100 MG Nolberto Nicole MD [address] [place] [address] Referral ID Status Reason Start Date Expiration Date Visits Re quested Visits Authorized [id number] Closed 04/30/2012 04/29/2013 1 4 Encounter Details Date Type Department Care Team (Late st Contact Info) Description 12/26/2012 10:18 AM CDT - 12/26/2012 11:59 PM CDT Hospital Encounter [facility] - Rheumatology [address] [place] [address] Isidro Heredia MD [address] [place] [phone] Discharge Disposition: Home or Self Care [...] Sign Reading Time Taken Comments Blood Pressure 128/80 12/26/2012 2:45 PM CDT Pulse 84 12/26/2012 2:45 PM CDT Temperature 36.8 ??C (98.3 ??F) 12/26/2012 2:45 PM CD T Respiratory Rate 16 12/26/2012 2:45 PM CDT Oxygen Saturation - - Inhaled Oxygen Concentration - - Weight 106.6 kg (235 lb) 12/26/2012 10:47 AM CDT Height 177.8 cm (5' 10 ) 12/26/2012 10:47 AM CDT Body Mass Index 33.72 12/26/2012 10:47 AM CDT documented in this encounter Discharge Instructions * Discharge Instructions* Mirela Rodrigez, TOVA - 12/26/2012 11:17 AM CDT IN Rheumatology Post Infusion instructions You have [...] through Sunday 9-5 call the office at [phone] After hours or on the weekend call the exchange at [phone] If you have had lab work done [...] Hospital as your provider. Mirela Rodrigez RN * Discharge Instructions* Document, Scanned - 01/05/2013 1:18 AM CDT documented in this encounter Medications at Time of Discharge Medication Sig Dispensed Refills Start Date End Date Eusigdqviwq-Jvikqnbpe-B it C-Mn (GLUCOSAMINE CHONDR 1500 COMPLX PO) [...] as needed for Pain. 120 Tab 0 12/09/2012 01/09/2013 predniSONE (DELTASONE) 10 MG tablet Take 1 [...] of this encounter Progress Notes * Mirela Rodrigez, TOVA - 12/26/2012 11:12 AM CDT JOSE Chalino Deng [id number] 12/26/2012 BP 129/75 Pulse 81 Temp 98.4 ??F Resp 16 Wt 106.595 kg (235 lb) BMI 33.72 kg/m2 Patient received: ?? 1000 mgIV of Rituxan and 150 cc normal saline given over 180 minutes. After Benadryl 50mg in saline flushj given SIVP over 10 min/Solumedrol 125mg in saline flush given SIVP over 10min ?? Number of 24 gauge 3/4 inch placed in Right hand ?? 1 attempt(s). PT'S SCHEDULE Has changed r/t discomfort level and symptoms @ 4months. Insurance confirms verification and coverage with the schedule change. Patient monitored throughout procedure. Tolerated well? Yes Next treatment? 2 weeks then 4 MONTHS Mirela Rodrigez RN documented in this encounter Miscellaneous Notes * Miscellaneous Scans - Document, Scanned - 12/31/2012 7:54 PM CDT documented in this encounter Plan of Treatment Upcoming Encounters Date Type Department Care Team (Late st Contact Info) Description 06/03/2024 1:00 PM NURSE INTERN Appointment [facility] - Rheumatology [address] [place] [address] 06/03/2024 2:00 PM NURSE INTERN Office Visit [facility] - Rheumatology [address] [place] [address] Gloria Smith MD [address] [place] [phone] documented as of this encounter Visit Diagnoses Not on filedocumented in this encounter Administered Medications Inactive Administered Medications - up to 3 most recent administrations Medication Order MAR Action Action Date Dose Rate Site diphenhydrAMINE (BENADRYL) injection 50 mg 50 mg, Intravenous, ONCE, 1 dose, On Gabriela 12/26/12 at 1045, Max intravenous rate = 25 mg/min $ Given 12/26/2012 11:10 AM CDT 50 mg methylPREDNISolone sod succ (Solu-MEDROL) injection 125 mg 125 mg, Intravenous, ONCE, 1 dose, On Gabriela 12/26/12 at 1045 $ Given 12/26/2012 11:11 AM CDT 125 mg rituximab (RITUXAN) 1,000 mg in NaCl 0.9 % infusion 1,000 mg, Intravenous, ONCE, 1 dose, On Gabriela 12/26/12 at 1100, Stable for 24 hours refrigerate; 48 hours at room temperature . WASTE DISPOSAL INSTRUCTIONS: Chemo Bin Disposal required. . $ Given 12/26/2012 11:39 AM CDT 1,000 mg documented in this encounter Care Teams Boat Ride Operator Relationship Specialty Start Date End Date Nolberto Nicole MD PCP - General 07/21/08 12/30/13 Isidro Heredia MD Rheumatology 02/09/11 documented as of this encounter
--- OUTSIDE RECORDS SUMMARY | 2024-05-03 04:14 | XMS_ITS | Encounter Summary ---
Author Organization [facility] Address [address] [place] [address] Care Team Providers Care Fire Production Operator Name Role Phone Nolberto Nicole MD Primary Care Provider [phone] Isidro Heredia MD Unavailable [phone] Encounter Details Date Type Department Care Team (Late Contact Info) Description 04/07/2013 Orders Only [facility] - Rheumatology [address] [place] [address] Mirela Rodrigez RN Rheumatoid arthritis (HCC) [...] (Late Contact Info) Description 06/03/2024 1:00 PM COMPENSATION AND BENEFITS MANAGER Appointment [facility] - Rheumatology [address] [place] [address] 06/03/2024 2:00 PM COMPENSATION AND BENEFITS MANAGER Office Visit [facility] - Rheumatology [address] [place] [address] Gloria Smith MD [address] [place] [phone] documented as of this encounter Visit Diagnoses Diagnosis Rheumatoid arthritis(714.0) ([facility])- Primary Rheumatoid arthritis documented in this encounter Care Teams Fire Production Operator Relationship Specialty Start Date End Date Nolberto Nicole MD PCP - General 07/21/08 12/30/13 Isidro Heredia MD Rheumatology 02/09/11 documented as of this encounter
--- OUTSIDE RECORDS SUMMARY | 2024-05-03 04:14 | XMS_ITS | Encounter Summary ---
Author Organization [facility] Address [address] [facility] [place] [address] Care Team Providers Care Potato Chip Cooker Machine Name Role Phone Nolberto Nicole MD Primary Care Provider [phone] Isidro Heredia MD Unavailable [phone] Reason for Visit * Reason Comments Rheumatoid Arthritis pain scale: 5/10 am stiffness: yes tolerating meds well no fever no abdominal pain Upper Extremity Problem fingers and hand s are stiff * Consult, Test & Treat (Routine) - Closed Specialty Diagnoses / Procedures Referred By Contsarahi t Referred To Contact Diagnoses Rheumatoid arthritis(714.0) ([facility]) Procedures [place] OFFICE VISIT DURING HOURS Nolberto Nicole MD [address] [place] [address] Isidro Heredia MD [address] [place] [address] Referral ID Status Reason Start Date Expiration Date Visits Re quested Visits Authorized [id number] Closed 07/02/2012 12/29/2012 1 6 Encounter Details Date Type Department Care Team (Late st Contact Info) Description 08/19/2012 4:45 PM CDT Office Visit [facility] - Rheumatology [address] [place] [address] [phone] Isidro Heredia MD [address] [place] [address] Rheumatoid arthritis (HCC) (Primary Dx); [...] Time Taken Comments Blood Pressure 121/75 08/19/2012 5:21 PM CDT Pulse 88 08/19/2012 5:21 PM CDT Temperature - - Respiratory Rate - - Oxygen Saturation - - Inhaled Oxygen Concentration - - Weight 106.6 kg (235 lb) 08/19/2012 5:21 PM CDT Height - - Body Mass Index 33.72 08/19/2012 12:53 PM CDT documented in this encounter Progress Notes * Isidro Heredia MD - 08/19/2012 5:43 PM CDT Subjective: Chalino Deng 51 y.o. male is here for Chief Complaint Patient presents with ??? Rheumatoid Arthritis pain scale: 5/10 am stiffness: yes tolerating meds well no fever no abdominal pain ??? Upper Extremity Problem fingers and hands are stiff He got his 1st rituxan today 0n mtx pred 20mg/d 30 at times and naprosyn for ra and pecocet for chronic pain HPI: Pain Level: 5/10 Hands wrists knees His shoulders better Am stiffness 2 hrs Global 7/10 Fatigue yes Medication Side Effects no Current Outpatient Prescriptions on File Prior to Visit Medication Sig Dispense Refill ??? methotrexate 2.5 MG tablet Take 6 Tabs by mouth every 7 days. 72 Tab 3 ??? predniSONE (DELTASONE) 10 MG tablet Take 1 Tab by mouth 2 times daily. 180 Tab 3 ??? metaxalone (SKELAXIN) 800 MG tablet Take 1 Tab by mouth 3 times daily. 270 Tab 1 ??? tamsulosin CR 24hr (FLOMAX) 0.4 MG [...] PO) Take by mouth once daily. ??? Mrkflaukwss-Lfecyvinq-Vvd C-Mn (GLUCOSAMINE CHONDR 1500 COMPLX PO) Take [...] wd wn wm in nad a/o x3 gaitr ok BP 121/75 Pulse 88 Wt 235 lb (106.595 kg) Head: perrla, eyes no irritation, vision [...] 6/SJ, 0/muscle tenderness or weakness LUE: 13/TJ, 4/SJ, [...] Pain. Dispense: 120 Tab Refill: 0 ??? naproxen (NAPROSYN) 500 MG tablet Sig: Take 1 Tab by mouth 2 times daily. Dispense: 180 Tab Refill: 3 Follow up in office in 4 weeks * Rea Hagan MA - 08/19/2012 5:21 PM CDT Chief Complaint Patient presents with ??? Rheumatoid Arthritis pain scale: 5/10 am stiffness: yes tolerating meds well no fever no abdominal pain ??? Upper Extremity Problem fingers and hands are stiff BP 121/75 Pulse 88 Wt 235 lb (106.595 kg) documented in this encounter Plan of Treatment Upcoming Encounters Date Type Department Care Team (Late st Contact Info) Description 06/03/2024 1:00 PM CLINIC OFFICE ASSISTANT Appointment [facility] - Rheumatology [address] [place] [address] 06/03/2024 2:00 PM CLINIC OFFICE ASSISTANT Office Visit [facility] - Rheumatology [address] [place] [address] Gloria Smith MD [address] [place] [phone] documented as of this encounter Visit Diagnoses Diagnosis Rheumatoid arthritis(714.0) (HCC)- Primary Rheumatoid arthritis Chronic pain syndrome documented in this encounter Care Teams Potato Chip Cooker Machine Relationship Specialty Start Date End Date Nolberto Nicole MD PCP - General 07/21/08 12/30/13 Isidro Heredia MD Rheumatology 02/09/11 documented as of this encounter
--- OUTSIDE RECORDS SUMMARY | 2024-05-03 04:14 | XMS_ITS | Encounter Summary ---
Author Organization [facility] Address [address] [place] [address] Care Team Providers Care Kiln Tender Name Role Phone Nolberto Nicole MD Primary Care Provider [phone] Isidro Heredia MD Unavailable [phone] Encounter Details Date Type Department Care Team (Late st Contact Info) Description 09/04/2013 Orders Only [facility] - Rheumatology [address] [place] [address] [id number] Isidro Heredia MD [address] [place] [address] Rheumatoid arthritis (HCC) Social History Tobacco [...] Progress Notes * Isidro Heredia MD - 09/14/2013 3:44 PM CDTQuick Note: mtx ok * Isidro Heredia MD - 09/14/2013 3:43 PM CDTQuick Note: mtx ok documented in this encounter Plan of Treatment Upcoming Encounters Date Type Department Care Team (Late st Contact Info) Description 06/03/2024 1:00 PM MAINTENANCE SHOP MANAGER Appointment [facility] - Rheumatology [address] [place] [address] [phone] 06/03/2024 2:00 PM MAINTENANCE SHOP MANAGER Office Visit [facility] - Rheumatology [address] [place] [address] Gloria Smith MD [address] [place] [address] [phone] documented as of this encounter Procedures Procedure Name Priority Date/Time Associated Diagnosis Comments ERYTHROCYTE SEDIMENTATION RATE Routine 09/04/2013 3:30 PM CDT Rheumatoid Arthritis (Hcc) CBC W AUTO DIFFERENTIAL Routine 09/04/2013 3:30 PM CDT Rheumatoid Arthritis (Hcc) COMPREHENSIVE METABOLIC PANEL Routine 09/04/2013 3:30 PM CDT Rheumatoid Arthritis (Hcc) documented in this encounter Results * SED RATE WESTERGREN (09/04/2013 3:30 PM CDT) Erythrocyte Sedimentation Rate Westergren 27 0 - 30 mm/hr [facility] INSURANCE BILL Blood specimen (specimen) BLOOD SPECIMEN / Unknown 09/04/2013 3:30 PM CDT 09/04/2013 6:21 PM CDT Narrative Resulting Agency Comment [facility] [place] [id number] [facility] ??[facility] [id number] Isidro Heredia MD LAB - HEMATOLOGY OR DERABLES [facility] INSURANCE BILL * (ABNORMAL) COMPREHENSIVE METABOLIC PANEL (09/04/2013 3:30 PM CDT) Glucose 108(H) 65 - 99 mg/dL [facility] INSURANCE BILL BUN 13 6 - 24 mg/dL [facility] INSURANCE BILL Creatinine 0.98 0.76 - 1.27 mg/dL [facility] INSURANCE BILL eGFR by MDRD 90 >59 mL/min/1.7 3 [facility] INSURANCE BILL eGFR by MDRD 103 >59 mL/min/1.7 3 [facility] INSURANCE BILL BUN/Creatinine Ratio 13 9 - 20 [facility] INSURANCE BILL Sodium 139 134 - 144 mmol/L [facility] INSURANCE BILL Potassium 4.7 3.5 - 5.2 mmol/L [facility] INSURANCE BILL Chloride 103 97 - 108 mmol/L [facility] INSURANCE BILL CO2 21 19 - 28 mmol/L [facility] INSURANCE BILL Calcium 9.4 8.7 [...] mg/dL [facility] INSURANCE BILL Alkaline Phosphatase 70 39 - 117 IU/L [facility] INSURANCE BILL AST 23 0 - 40 IU/L [facility] INSURANCE BILL ALT 24 0 - 44 IU/L [facility] INSURANCE BILL Blood specimen (specimen) BLOOD SPECIMEN / Unknown 09/04/2013 3:30 PM CDT 09/04/2013 6:21 PM CDT Narrative Resulting Agency Comment [facility] [address] ??[facility] [id number] Isidro Heredia MD LAB - CHEMISTRY ORD ERABLES [facility] INSURANCE BILL * (ABNORMAL) CBC W AUTO DIFFERENTIAL (09/04/2013 3:30 PM CDT) WBC 10.0 3.4 - 10.8 x10E3/uL [facility] INSURANCE BILL RBC 4.00(L) 4.14 - 5.80 x10E6/uL [facility] INSURANCE BILL Hemoglobin 12.6 12.6 - 17.7 g/dL [facility] INSURANCE BILL Hematocrit 36.9(L) 37.5 - 51.0 % [facility] INSURANCE BILL MCV 92 79 - 97 fL [facility] INSURANCE BILL MCH 31.5 26.6 - 33.0 pg [facility] INSURANCE BILL MCHC 34.1 31.5 - 35.7 g/dL [facility] INSURANCE BILL RDW 15.5(H) 12.3 - 15.4 % [facility] INSURANCE BILL Platelet Count 177 155 - 379 x10E3/uL [facility] INSURANCE BILL Granulocytes % 82(H) 40 - 74 % [facility] INSURANCE BILL Lymphocytes % 13(L) 14 - 46 % [facility] INSURANCE [...] Blood specimen (specimen) BLOOD SPECIMEN / Unknown 09/04/2013 3:30 PM CDT 09/04/2013 6:21 PM CDT Narrative Resulting Agency Comment [facility] [address] ??[facility] [id number] Isidro Heredia MD LAB - HEMATOLOGY OR DERABLES [facility] INSURANCE BILL documented in this encounter Visit Diagnoses Diagnosis Rheumatoid arthritis(714.0) (HCC)- Primary Rheumatoid arthritis documented in this encounter Care Teams Kiln Tender Relationship Specialty Start Date End Date Nolberto Nicole MD PCP - General 07/21/08 12/30/13 Isidro Heredia MD Rheumatology 02/09/11 documented as of this encounter
--- OUTSIDE RECORDS SUMMARY | 2024-05-03 04:14 | XMS_ITS | Encounter Summary ---
Author Organization [facility] Address [address] [place] [address] Care Team Providers Care Art Objects Repairer Name Role Phone Nolberto Nicole MD Primary Care Provider [phone] Isidro Heredia MD Unavailable [phone] Reason for Visit * Treatment (Routine) - Closed Specialty Diagnoses / Procedures Referred By Lawrence shah Referred To Contact Infusion Therapy Nurse Diagnoses Rheumatoid arthritis(714.0) ([facility]) Procedures VA INJECTION TOCILIZUMAB 1 MG Isidro Heredia MD [address] [place] [address] Referral ID Status Reason Start Date Expiration Date Visits Re quested Visits Authorized [id number] Closed 03/07/2013 06/05/2013 1 5 Encounter Details Date Type Department Care Team (Late st Contact Info) Description 05/12/2013 11:30 AM SHRIMP POND LABORER - 05/12/2013 11:59 PM [facility] Hospital Encounter [facility] - Rheumatology [address] [place] [address] Isidro Heredia MD [address] [place] [address] Discharge Disposition: Home or Self [...] Time Taken Comments Blood Pressure 138/89 05/12/2013 12:03 PM SHRIMP POND LABORER Pulse 81 05/12/2013 12:03 PM SHRIMP POND LABORER Temperature 36.3 ??C (97.4 ??F) 05/12/2013 12:[address] Respiratory Rate 16 05/12/2013 12:03 PM SHRIMP POND LABORER Oxygen Saturation - - Inhaled Oxygen Concentration - - Weight 113.4 kg (250 lb) 05/12/2013 12:03 PM SHRIMP POND LABORER Height 177.8 cm (5' 10 ) 05/12/2013 12:03 PM SHRIMP POND LABORER Body Mass Index 35.87 05/12/2013 12:03 PM SHRIMP POND LABORER documented in this encounter Discharge Instructions * Discharge Instructions* Mirela Rodrigez, RN - 05/12/2013 12:07 PM SHRIMP POND LABORER [place] Rheumatology Post Infusion instructions You have [...] through Sunday 9-5 call the office at [phone] After hours or on the weekend call the exchange at [phone] If you have had lab work done [...] chosen [facility] as your provider. Mirela Rodrigez RN MP POND LABORER * Discharge Instructions* Document, Scanned - 05/16/2013 7:01 PM SHRIMP POND LABORER MP POND LABORER documented in this encounter Medications at Time of Discharge Medication Sig Dispensed Refills Start Date End Date Aoxmxtzpnxr-Vtbsgtzno-Sc t C-Mn (GLUCOSAMINE CHONDR 1500 COMPLX PO) [...] as needed for Pain. 120 Tab 0 05/12/2013 06/10/2013 predniSONE (DELTASONE) 10 MG tablet Take 1 [...] Progress Notes * Mirela Rodrigez RN - 05/12/2013 12:25 PM CST JOSE Deng [id number] 05/12/2013 BP 138/89 Pulse 81 Temp 97.4 ??F Resp 16 Wt 113.399 kg (250 lb) BMI 35.87 kg/m2 Patient received: ?? 22 mgIV of Actemra and 100 cc normal saline given over 60 minutes. ?? Number of 22 gauge 1 inch placed in Right antecubital ?? 1 attempt(s). 6-80mg vials with 20mg wasted Patient monitored throughout procedure. Tolerated well? Yes Next treatment? 4 weeks Mirela Rodrigez RN MP POND LABORER documented in this encounter Miscellaneous Notes * Miscellaneous Scans - Document, Scanned - 05/15/2013 5:41 PM CST MP POND LABORER documented in this encounter Plan of Treatment Upcoming Encounters Date Type Department Care Team (Late st Contact Info) Description 06/03/2024 1:00 PM SHRIMP POND LABORER Appointment [facility] - Rheumatology [address] [place] [address] 06/03/2024 2:00 PM SHRIMP POND LABORER Office Visit [facility] - Rheumatology [address] [place] [address] Gloria Smith MD [address] [place] [phone] documented as of this encounter Visit Diagnoses Not on filedocumented in this encounter Administered Medications Inactive Administered Medications - up to 3 most recent administrations Medication Order MAR Action Action Date Dose Rate Site tocilizumab (ACTEMRA) 460 mg in NaCl 0.9 % IVPB 460 mg, at 100 mL/hr, Intravenous, ONCE, 1 dose, On Sun05/12/13 at 1215 $ Given 05/12/2013 12:19 PM SHRIMP POND LABORER 460 mg 100 mL/ hr documented in this encounter Care Teams Art Objects Repairer Relationship Specialty Start Date End Date Nolberto Nicole MD PCP - General 07/21/08 12/30/13 Isidro Heredia MD Rheumatology 02/09/11 documented as of this encounter
--- OUTSIDE RECORDS SUMMARY | 2024-05-03 04:14 | XMS_ITS | Encounter Summary ---
Author Organization [facility] Address [address] [place] [address] Care Team Providers Care Adhesive Bandage Machine Operator Name Role Phone Nolberto Nicole MD Primary Care Provider [phone] Isidro Heredia MD Unavailable [phone] Encounter Details Date Type Department Care Team (Late st Contact Info) Description 09/02/2012 8:57 AM CDT - 09/02/2012 11:59 PM CDT Hospital Encounter [facility] Medical [facility] - Rheumatology [address] [place] [address] Isidro Heredia MD [address] [place] [address] Discharge Disposition: Home or Self Care [...] Sign Reading Time Taken Comments Blood Pressure 143/95 09/02/2012 9:13 AM CDT Pulse 89 09/02/2012 9:13 AM CDT Temperature 37 ??C (98.6 ??F) 09/02/2012 9:13 AM CDT Respiratory Rate 16 09/02/2012 9:13 AM CDT Oxygen Saturation - - Inhaled Oxygen Concentration - - Weight 106.6 kg (235 lb) 09/02/2012 9:13 AM CDT Height 177.8 cm (5' 10 ) 09/02/2012 9:13 AM CDT Body Mass Index 33.72 09/02/2012 9:13 AM CDT documented in this encounter Discharge Instructions * Discharge Instructions* Mirela Rodrigez RN - 09/02/2012 9:23 AM CDT [place] Rheumatology Post Infusion instructions You [...] Sunday through 01-02 call the office at [phone] After hours or on the weekend call the exchange at [phone] If you have had lab work done [...] have chosen [facility] as your provider. Mirela Rodrigez RN * Discharge Instructions* Document, Scanned - 09/08/2012 2:12 PM CDT documented in this encounter Medications at Time of Discharge Medication Sig Dispensed Refills Start Date End Date Qshpnyuhryw-Ucjswlzsl-Gq t C-Mn (GLUCOSAMINE CHONDR 1500 COMPLX PO) [...] 30 days. 3 Tab 3 08/29/2010 05/12/2013 terbinafine (LAMISIL) 250 MG tablet Take 1 Tab by mouth once daily. 30 Tab 1 05/15/2011 12/26/2012 documented as of this encounter Progress Notes * Mirela Rodrigez RN - 09/02/2012 9:29 AM CDT JOSE Deng [id number] 09/02/2012 BP 143/95 Pulse 89 Temp 98.6 ??F Resp 16 Wt 106.595 kg (235 lb) BMI 33.72 kg/m2 Patient received: ?? 1000 mgIV of Rituxan and 250 cc normal saline given over 180 minutes. ?? Number of 22 gauge 1 inch placed in Left antecubital ?? 1 attempt(s). ?? Pretreated with Benadryl 50mg/Solumedrol 125mg Patient monitored throughout procedure. Tolerated well? Yes Next treatment? 6 months Mirela Rodrigez RN documented in this encounter Miscellaneous Notes * Miscellaneous Scans - Document, Scanned - 09/08/2012 5:30 PM CDT documented in this encounter Plan of Treatment Upcoming Encounters Date Type Department Care Team (Late st Contact Info) Description 06/03/2024 1:00 PM SPRING COILER HAND Appointment [facility] - Rheumatology [address] [place] [address] 06/03/2024 2:00 PM SPRING COILER HAND Office Visit [facility] - Rheumatology [address] [place] [address] Gloria Smith MD [address] [place] [phone] documented as of this encounter Visit Diagnoses Not on filedocumented in this encounter Administered Medications Inactive Administered Medications - up to 3 most recent administrations Medication Order MAR Action Action Date Dose Rate Site diphenhydrAMINE (BENADRYL) injection 50 mg 50 mg, Intravenous, ONCE, 1 dose, On Sun09/02/12 at 0900, Max intravenous rate = 25 mg/min $ Given 09/02/2012 9:15 AM CDT 50 mg methylPREDNISolone sod succ (Solu-MEDROL) injection 125 mg 125 mg, Intravenous, ONCE, 1 dose, On Sun09/02/12 at 0915 $ Given 09/02/2012 9:22 AM CDT 125 mg rituximab (RITUXAN) 1,000 mg in NaCl 0.9 % infusion 1,000 mg, Intravenous, ONCE, 1 dose, On Sun09/02/12 at 0930, Stable for 24 hours refrigerate; 48 hours at room temperature . WASTE DISPOSAL INSTRUCTIONS: Chemo Bin Disposal required. . $ Given 09/02/2012 9:39 AM CDT 1,000 mg documented in this encounter Care Teams Adhesive Bandage Machine Operator Relationship Specialty Start Date End Date Nolberto Nicole MD PCP - General 07/21/08 12/30/13 Isidro Heredia MD Rheumatology 02/09/11 documented as of this encounter
--- OUTSIDE RECORDS SUMMARY | 2024-05-03 04:14 | XMS_ITS | Encounter Summary ---
Author Organization [facility] Address [address] [facility] [place] [address] Care Team Providers Care Water Quality Tester Name Role Phone Nolberto Nicole MD Primary Care Provider Isidro Heredia MD Unavailable [phone] Reason for Visit * Reason Comments Rheumatoid Arthritis * Consult, Test & Treat (Routine) - Closed Specialty Diagnoses / Procedures Referred By Contsarahi t Referred To Contact Diagnoses Rheumatoid arthritis(714.0) (HCC) Procedures [place] OFFICE VISIT DURING HOURS Nolberto Nicole MD [address] [place] [address] Isidro Heredia MD [address] [place] [address] Referral ID Status Reason Start Date Expiration Date Visits Re quested Visits Authorized [id number] Closed 03/14/2013 09/11/2013 1 6 Encounter Details Date Type Department Care Team (Late st Contact Info) Description 08/07/2013 2:30 PM CDT Office Visit [facility] Medical [facility] - Rheumatology [address] [place] [address] Isidro Heredia MD [address] [place] [address] Rheumatoid arthritis (HCC) (Primary Dx); [...] Time Taken Comments Blood Pressure 130/80 08/07/2013 2:27 PM CDT Pulse 102 08/07/2013 2:27 PM CDT Temperature - - Respiratory Rate - - Oxygen Saturation - - Inhaled Oxygen Concentration - - Weight 113.4 kg (250 lb) 08/07/2013 2:27 PM CDT Height - - Body Mass Index 35.87 08/07/2013 1:52 PM CDT documented in this encounter Progress Notes * Isidro Heredia MD - 08/07/2013 3:01 PM CDT Subjective: Chalino Deng 52 y.o. male is here for Chief Complaint Patient presents with ??? Rheumatoid Arthritis HPI: on mtx actemra pred 10 mg bid For ra off plaq Pain Level: 6/10 Am stiffness 1 hr Global 8/10 Fatigue yes Medication Side Effects n0 Current Outpatient Prescriptions on File Prior to Visit Medication Sig Dispense Refill ??? predniSONE (DELTASONE) 10 MG tablet TAKE 1 TABLET BY MOUTH 2 TIMES A DAY 180 Tab 3 ??? rosuvastatin (CRESTOR) 5 MG tablet Take [...] PO) Take by mouth once daily. ??? Loidqklnkpp-Nsjlvlczi-Zsz C-Mn (GLUCOSAMINE CHONDR 1500 COMPLX PO) Take by mouth once daily. ??? diclofenac sodium (VOLTAREN) 1 % gel Apply 1 g to affected area 4 times daily. 1 4 ??? ZYRTEC 10 MG TABS Take 10 mg by mouth once daily. Seasonal (nov. Current Facility-Administered Medications on File Prior to Visit Medication Dose Route Frequency Provider Last Rate Last Dose ??? [COMPLETED] Tocilizumab 80 mg, tocilizumab (ACTEMRA) 400 mg in NaCl 0.9 % IVPB 480 mg Intravenous Once Isidro Heredia MD 480 mg at 08/07/13 1345 Patient Active Problem List Diagnosis ??? Rheumatoid [...] lungs Objective: General Appearance Physical Exam: obese wnm in nada/o x3 BP 130/80 Pulse 102 Wt 113.399 kg (250 lb) Head: perrla, [...] syndrome poorly controlled ra and chronic pain Inc actemra if not better next mo to 8 mg/mo Plan: Plan Orders Placed This Encounter ??? oxyCODONE-acetaminophen (PERCOCET) 5-325 MG tablet Sig: Take 1 Tab by mouth every 6 hours as needed for Pain. Dispense: 120 Tab Refill: 0 Follow up in office in 4 weeks documented in this encounter Plan of Treatment Upcoming Encounters Date Type Department Care Team (Late st Contact Info) Description 06/03/2024 1:[address] [facility] - Rheumatology [address] [place] [address] 06/03/2024 2:00 PM SDET Office Visit [facility] - Rheumatology [address] [place] [address] [phone] Gloria Smith MD [address] [place] [phone] documented as of this encounter Visit Diagnoses Diagnosis Rheumatoid arthritis(714.0) (HCC)- Primary Rheumatoid arthritis Chronic pain syndrome documented in this encounter Care Teams Water Quality Tester Relationship Specialty Start Date End Date Nolberto Nicole MD PCP - General 07/21/08 12/30/13 Isidro Heredia MD Rheumatology 02/09/11 documented as of this encounter
--- OUTSIDE RECORDS SUMMARY | 2024-05-03 04:14 | XMS_ITS | Encounter Summary ---
Author Organization [facility] Address [address] [place] [address] Care Team Providers Care Guest Experience Captain Name Role Phone Nolberto Nicole MD Primary Care Provider [phone] Isidro Heredia MD Unavailable [phone] Encounter Details Date Type Department Care Team (Late st Contact Info) Description 09/02/2012 Orders Only [facility] - Rheumatology [address] [place] [address] [phone] Isidro Heredia MD [address] [place] [address] Rheumatoid arthritis (HCC) Social History Tobacco [...] Notes * Rea Hagan MA - 09/16/2012 5:07 PM CDTQuick Note: Pt informed at his office visit today. Dr Valiente will discuss treatment plan * Isidro Heredia MD - 09/09/2012 5:56 AM CDTQuick Note: Wbc sl inc mtx ok * Yamileth Rodríguez MA - 09/02/2012 9:41 AM CDT Patient was here and had labs drawn for cbc,cmp, sed rate documented in this encounter Plan of Treatment Upcoming Encounters Date Type Department Care Team (Late st Contact Info) Description 06/03/2024 1:00 PM NATURAL RESOURCE SPECIALIST Appointment [facility] - Rheumatology [address] [place] [address] [phone] 06/03/2024 2:00 PM NATURAL RESOURCE SPECIALIST Office Visit [facility] - Rheumatology [address] [place] [address] Gloria Smith MD [address] [place] [phone] documented as of this encounter Procedures Procedure Name Priority Date/Time Associated Diagnosis Comments ERYTHROCYTE SEDIMENTATION RATE Routine 09/02/2012 9:30 AM CDT Rheumatoid arthritis (HCC) CBC W AUTO DIFFERENTIAL Routine 09/02/2012 9:30 AM CDT Rheumatoid arthritis (HCC) COMPREHENSIVE METABOLIC PANEL Routine 09/02/2012 9:30 AM CDT Rheumatoid arthritis (HCC) documented in this encounter Results * SED RATE WESTERGREN (09/02/2012 9:30 AM CDT) Erythrocyte Sedimentation Rate Westergren 8 0 - 15 mm/hr [facility] ACCOUNT BILL Blood specimen (specimen) BLOOD SPECIMEN / Unknown 09/02/2012 9:30 AM CDT 09/02/2012 1:15 PM CDT Narrative Resulting Agency Comment [facility] [place] [address] [facility] ??[facility] [id number] Isidro Heredia MD LAB - HEMATOLOGY OR DERABLES [facility] ACCOUNT BILL * (ABNORMAL) COMPREHENSIVE METABOLIC PANEL (09/02/2012 9:30 AM CDT) Glucose 102(H) 65 - 99 mg/dL [facility] ACCOUNT BILL BUN 22 6 - 24 mg/dL [facility] ACCOUNT BILL Creatinine 0.92 0.76 - 1.27 mg/dL [facility] ACCOUNT BILL eGFR by MDRD 97 >59 mL/min/1.7 3 [facility] ACCOUNT BILL eGFR by MDRD 113 >59 mL/min/1.7 3 [facility] ACCOUNT BILL BUN/Creatinine Ratio 24(H) 9 - 20 [facility] ACCOUNT BILL Sodium 139 134 - 144 mmol/L [facility] ACCOUNT BILL Potassium 3.6 3.5 - 5.2 mmol/L [facility] ACCOUNT BILL Chloride 103 97 - 108 mmol/L [facility] ACCOUNT BILL CO2 21 20 - 32 mmol/L [facility] ACCOUNT BILL Calcium 9.5 8.7 - 10.2 mg/dL [facility] ACCOUNT BILL Protein Total 7.2 6.0 - 8.5 g/dL [facility] ACCOUNT BILL Albumin 4.2 3.5 - 5.5 g/dL [facility] ACCOUNT BILL Globulin Total 3.0 1.5 - 4.5 g/dL [facility] ACCOUNT BILL Albumin/Globulin Ratio 1.4 1.1 - 2.5 [facility] ACCOUNT BILL Bilirubin Total 0.5 0.0 - 1.2 mg/dL [facility] ACCOUNT BILL Alkaline Phosphatase 93 25 - 150 IU/L [facility] ACCOUNT BILL AST 18 0 - 40 IU/L [facility] ACCOUNT BILL ALT 19 0 - 44 IU/L [facility] ACCOUNT BILL Blood specimen (specimen) BLOOD SPECIMEN / Unknown 09/02/2012 9:30 AM CDT 09/02/2012 1:15 PM CDT Narrative Resulting Agency Comment [facility] [address] ??[facility] [phone] Isidro Heredia MD LAB - CHEMISTRY ORD ERABLES [facility] ACCOUNT BILL * (ABNORMAL) CBC W AUTO DIFFERENTIAL (09/02/2012 9:30 AM CDT) WBC 15.9(H) 4.0 - 10.5 x10E3/uL [facility] ACCOUNT BILL RBC 4.45 4.14 - 5.80 x10E6/uL [facility] ACCOUNT BILL Hemoglobin 12.9 12.6 - 17.7 g/dL [facility] ACCOUNT BILL Hematocrit 38.9 37.5 - 51.0 % [facility] ACCOUNT BILL MCV 87 79 - 97 fL [facility] ACCOUNT BILL MCH 29.0 26.6 - 33.0 pg [facility] ACCOUNT BILL MCHC 33.2 31.5 - 35.7 g/dL [facility] ACCOUNT BILL RDW 16.2(H) 12.3 - 15.4 % [facility] ACCOUNT BILL Platelet Count 204 140 - 415 x10E3/uL [facility] ACCOUNT BILL Granulocytes % 71 40 - 74 % [facility] ACCOUNT BILL Lymphocytes % 22 14 - 46 % [facility] ACCOUNT BILL Monocytes % 5 4 - 13 % [facility] ACCOUNT BILL Eosinophils % 2 0 - 7 % [facility] ACCOUNT BILL Basophils % 0 0 - 3 % [facility] ACCOUNT BILL Immature Cells NOT NEEDED [facility] ACCOUNT BILL Comment:Ancillary determined the test is not needed Granulocytes Absolute 11.2(H) 1.8 - 7.8 x10E3/uL [facility] ACCOUNT BILL Lymphocytes Absolute 3.4 0.7 - 4.5 x10E3/uL [facility] ACCOUNT BILL Monocytes Absolute 0.9 0.1 - 1.0 x10E3/uL [facility] ACCOUNT BILL Eosinophils Absolute 0.3 [...] Blood specimen (specimen) BLOOD SPECIMEN / Unknown 09/02/2012 9:30 AM CDT 09/02/2012 1:15 PM CDT Narrative Resulting Agency Comment [facility] [address] ??[facility] [phone] Isidro Heredia MD LAB - HEMATOLOGY OR DERABLES [facility] ACCOUNT BILL documented in this encounter Visit Diagnoses Diagnosis Rheumatoid arthritis(714.0) (HCC)- Primary Rheumatoid arthritis documented in this encounter Care Teams Guest Experience Captain Relationship Specialty Start Date End Date Nolberto Nicole MD PCP - General 07/21/08 12/30/13 Isidro Heredia MD Rheumatology 02/09/11 documented as of this encounter
--- OUTSIDE RECORDS SUMMARY | 2024-05-03 04:14 | XMS_ITS | Encounter Summary ---
Author Organization [facility] Address [address] [facility] [address] Care Team Providers Care Produce Service Team Member Name Role Phone Nolberto Nicole MD Primary Care Provider Isidro Heredia MD Unavailable Reason for Visit * Reason Comments Rheumatoid Arthritis - FYI Actemera incr eased to 800 mg today due to joint pain Shoulder Pain obdulia. rt shoulder is worse * Consult, Test & Treat (Routine) - Closed Specialty Diagnoses / Procedures Referred By Contsarahi t Referred To Contact Diagnoses Rheumatoid arthritis(714.0) ([facility]) Procedures AR OFFICE VISIT DURING HOURS Nolberto Nicole MD [address] [place] [address] Isidro Heredia MD [address] [place] [address] Referral ID Status Reason Start Date Expiration Date Visits Re quested Visits Authorized [id number] Closed 03/14/2013 09/11/2013 1 6 Encounter Details Date Type Department Care Team (Late st Contact Info) Description 09/04/2013 3:15 PM CDT Office Visit [facility] [address] [place] [phone] Isidro Heredia MD [address] [place] [address] Rheumatoid arthritis (HCC) (Primary Dx); Fatigue; Chronic pain syndrome; Subacromial bursitis Social History [...] Time Taken Comments Blood Pressure 138/78 09/04/2013 3:32 PM CDT Pulse 105 09/04/2013 3:32 PM CDT Temperature - - Respiratory Rate - - Oxygen Saturation - - Inhaled Oxygen Concentration - - Weight 120.2 kg (265 lb) 09/04/2013 3:32 PM CDT Height - - Body Mass Index 38.02 09/04/2013 2:55 PM CDT documented in this encounter Progress Notes * Isidro Heredia MD - 09/04/2013 3:43 PM CDT Subjective: Chalino Deng 52 y.o. male is here for Chief Complaint Patient presents with ??? Rheumatoid Arthritis - FYI Actemera increased to 800 mg today due to joint pain ??? Shoulder Pain obdulia. rt shoulder is worse Rapid 3 6.7 HPI: On mtx pred 10 mg bid Naprosyn and actemra inc to 800 today for ra and percocet for chronic pain Pain Level: 7/10 hands knees r shoulder Am stiffness 2 hrs Global 7/10 going to 2 days at home for work Fatigue yes Medication Side Effects no Current [...] PO) Take by mouth once daily. ??? Addppqswwny-Dvqyryrlq-Dvf C-Mn (GLUCOSAMINE CHONDR 1500 COMPLX PO) Take [...] ??? Tocilizumab 800 mg in 0.9% NaCl 0.9 % IVPB 800 mg Intravenous Once Isidro Heredia MD 800 mgat 09/04/13 1504 Patient Active Problem List Diagnosis ??? Rheumatoid [...] Appearance Physical Exam: wd wn wm in [place]/o x3 BP 138/78 Pulse 105 Wt 120.203 kg (265 lb) Head: perrla, eyes no irritation, vision [...] 1/SJ, 0/muscle tenderness or weakness Painful abduction r shoulder Assessment: Encounter Diagnoses Name Primary? Rheumatoid arthritis Yes ??? Fatigue ??? Chronic pain syndrome poorly controlled Same meds but inc actemra to 800 mg Under sterile condition, 2 cc's of tac were injected in the right subacromial bursa. Patient tolerated procedure well without complications. Plan: Plan Orders Placed This Encounter ??? TSH ??? T4 TOTAL ??? oxyCODONE-acetaminophen (PERCOCET) 5-325 MG tablet Sig: Take 1 Tab by mouth every 6 hours as needed for Pain. Dispense: 120 Tab Refill: 0 Follow up in office in 4 weeks documented in this encounter Plan of Treatment Upcoming Encounters Date Type Department Care Team (Late st Contact Info) Description 06/03/2024 1:00 PM STATE DIRECTOR Appointment [facility] - Rheumatology [address] [place] [address] [phone] 06/03/2024 2:00 PM STATE DIRECTOR Office Visit [facility] - Rheumatology [address] [place] [address] Gloria Smith MD [address] [place] [address] [phone] Scheduled Orders Name Type Priority Associated Diagnoses Orde r Schedule TSH Lab Routine Fatigue Ordered: 09/04/2013 T4 TOTAL Lab Routine Fatigue Ordered: 09/04/2013 documented as of this encounter Visit Diagnoses Diagnosis Rheumatoid arthritis(714.0) ([facility])- Primary Rheumatoid arthritis Fatigue Other malaise and fatigue Chronic pain syndrome Subacromial bursitis Other specified disorders of rotator cuff syndrome of shoulder and allied disorders documented in this encounter Care Teams Produce Service Team Member Relationship Specialty Start Date End Date Nolberto Nicole MD PCP - General 07/21/08 12/30/13 Isidro Heredia MD Rheumatology 02/09/11 documented as of this encounter
--- OUTSIDE RECORDS SUMMARY | 2024-05-03 04:15 | XMS_ITS | Encounter Summary ---
Author Organization [facility] Address [address] [place] [address] [place] [address] Care Team Providers Care Cylinder Filler Name Role Phone Nolberto Nicole MD Primary Care Provider [phone] Reason for Visit * Reason Comments Follow-up RA Encounter Details Date Type Department Care Team (Late st Contact Info) Description 01/16/2011 5:30 PM CDT Office Visit [facility] Medical [facility] - Rheumatology [address] [place] [address] [phone] Isidro Heredia MD [address] [place] [address] [phone] Rheumatoid arthritis (HCC) (Primary Dx); Triceps tendonitis Social History Tobacco Use Types [...] Sign Reading Time Taken Comments Blood Pressure 120/90 01/16/2011 5:55 PM CDT Pulse 92 01/16/2011 5:55 PM CDT Temperature - - Respiratory Rate - - Oxygen Saturation - - Inhaled Oxygen Concentration - - Weight 109.3 kg (241 lb) 01/16/2011 5:55 PM CDT Height - - Body Mass Index 34.58 02/08/2009 5:43 PM CDT documented in this encounter Progress Notes * Isidro Heredia MD - 01/22/2011 11:07 PM CDTQuick Note: mtx ok * Isidro Heredia MD - 01/16/2011 5:56 PM CDT Subjective: Chalino Deng 50 y.o. male Chief Complaint Patient presents with ??? Follow-up RA Current Outpatient Prescriptions on File Prior to Visit Medication Sig Dispense Refill ??? methotrexate (RHEUMATREX) 2.5 MG tablet Take 6 Tabs by mouth every 7 days. 72 Tab 3 ??? adalimumab (HUMIRA PEN) 40 MG/0.8ML injection Inject 0.8 mL subcutaneously every 7 days. 12 Kit3 ??? predniSONE (DELTASONE) 10 MG tablet Take 1 Tab by mouth daily. In the am and 1 tab in the pm 60Tab 6 ??? naproxen (NAPROSYN) 500 MG tablet Take 1 Tab by mouth 2 times daily. 180 Tab 3 ??? risedronate Sodium (ACTONEL) 150 MG tablet Take 1 Tab by mouth every 30 days. 3 Tab 3 ??? cyclobenzaprine (FLEXERIL) 10 MG tablet Take 1 Tab by mouth at bedtime. 30 Tab 6 ??? esomeprazole (NEXIUM) 40 MG capsule Take 1 Cap by mouth daily before breakfast. 90 Cap 3 ??? fluconazole (DIFLUCAN) 100 MG tablet Take 1 Tab by mouth daily. 14 Tab 0 ??? diclofenac sodium (VOLTAREN) 1 % gel Apply 1 g to affected area 4 times daily. 1 4 ??? triamcinolone acetonide (KENALOG-40) injection 2 mL by Intra-articular route once. 1 0 ??? terbinafine (LAMISIL) 250 MG tablet Take 1 Tab by mouth daily. 30 1 ??? ZYRTEC 10 MG TABS Take 10 mg by mouth daily. ??? hydroxychloroquine (PLAQUENIL) 200 MG tablet Take 1 Tab by mouth 2 times daily. 60 4 Patient Active Problem List Diagnoses ??? Rheumatoid Arthritis ??? GERD (Gastroesophageal Reflux Disease) ??? Osteopenia ??? ANEMIA History Smoking status ??? Never Smoker Smokeless tobacco ??? Not on file History Alcohol Use No History Drug Use Not on file went to [place] for a week Pain Level: 11/06 Am stiffness 1 hr Global 11/06 Fatigue y Medication Side Effects n Review of Systems: GENERAL: No fever, chills, sweats, weight loss EARS: No wax or hearing loss. NOSE: No runny nose, bleeding, sinus drainage MOUTH: No gingivitis or stomatitis GI: No nausea vomiting, abdominal pain, weight loss, anorexia, gerd HEART: No chest pain, palpitations, orthopnea, syncope LUNGS: No shortness of breath, cough, pleurisy, wheezing : No nocturia, dysuria, frequency, urgency, kidney stones. SKIN: No itching,rash, dry skin. MS: He has muscle weakness, tenderness or joint pain NEURO: No headaches, seizures, dizziness, confusion, numbness, tingling HEME: No bruising or bleeding, swollen glands EXTREMITIES: No cyanosis, clubbing, edema OTHER: Completed Antibx for cold 01/12/11 Objective: BP 120/90 Pulse 92 Wt 241 lb (109.317 kg) Tender Joint Count 04/26 Swollen Joint Count Muscles: Weak or Tender 0 Rheumatoid Nodules: 0 Physical Exam: wd wn wm in nad HEENT perrla, hearing and vision intact, throat clear NECK- supple, no bruits LUNGS- clear, no rales , rhonchi or wheezes HEART- Normal Sinus Rhythm, no S3, S4 or murmurs ABDOMEN- soft, no masses or tenderness, no organomegaly EXTREMITIES- no edema CIRCULATION- Intact SKIN- no rash Assessment: Encounter Diagnoses Name Primary? Rheumatoid arthritis Yes ??? Triceps tendonitis Plan: Plan Orders Placed This Encounter ??? CBC W AUTO DIFFERENTIAL ??? C-REACTIVE PROTEIN ??? COMPREHENSIVE METABOLIC PANEL ??? SED RATE WESTERGREN AUTO ??? oxycodone-acetaminophen (PERCOCET) 5-325 MG tablet Sig: Take 1 Tab by mouth every 6 hours as needed for Pain. Dispense: 120 Tab Refill: 0 Same meds Follow up in office in 4 weeks * Rea Hagan MA - 01/16/2011 5:56 PM CDT Chief Complaint Patient presents with ??? Follow-up RA BP 120/90 Pulse 92 Wt 241 lb (109.317 kg) documented in this encounter Plan of Treatment Upcoming Encounters Date Type Department Care Team (Late st Contact Info) Description 06/03/2024 1:00 PM MEDICAL SCIENTIFIC OFFICER Appointment [facility] - Rheumatology [address] [place] [phone] 06/03/2024 2:00 PM MEDICAL SCIENTIFIC OFFICER Office Visit [facility] - Rheumatology [address] [place] [address] Gloria Smith MD [address] [place] [phone] documented as of this encounter Procedures Procedure Name Priority Date/Time Associated Diagnosis Comments C-REACTIVE PROTEIN Routine 01/16/2011 6: 00 PM CDT Rheumatoid arthritis (HCC) ERYTHROCYTE SEDIMENTATION RATE Routine 01/16/2011 6:00 PM CDT Rheumatoid arthritis (HCC) CBC W AUTO DIFFERENTIAL Routine 01/16/2011 6:00 PM CDT Rheumatoid arthritis (HCC) COMPREHENSIVE METABOLIC PANEL Routine 01/16/2011 6:00 PM CDT Rheumatoid arthritis (HCC) documented in this encounter Results * (ABNORMAL) SED RATE WESTERGREN AUTO (01/16/2011 6:00 PM CDT) Erythrocyte Sedimentation Rate Westergren 36(H) 0 - 23 mm/hr [facility] ACCOUNT BILL BLOOD SPECIMEN / Unknown 01/16/2011 6:00 PM CDT 01/16/2011 10:24 PM CDT Narrative Resulting Agency Comment [facility] [place] [address] [facility] ??[facility] [phone] Isidro Heredia MD LAB - HEMATOLOGY OR DERABLES [facility] ACCOUNT BILL * COMPREHENSIVE METABOLIC PANEL (01/16/2011 6:00 PM CDT) Glucose 88 65 - 99 mg/dL [facility] ACCOUNT BILL BUN 21 6 - 24 mg/dL [facility] ACCOUNT BILL Creatinine 1.05 0.76 - 1.27 mg/dL [facility] ACCOUNT BILL eGFR by MDRD 84 >59 mL/min/1.7 3 [facility] ACCOUNT BILL eGFR by MDRD 97 >59 mL/min/1.7 3 [facility] ACCOUNT BILL Comment: Note: A persistent eGFR <60 mL/min/1.73 m2 (3 months or more) may indicate chronic kidney disease. An eGFR >59 mL/min/1.73 m2 with an elevated urine protein also may indicate chronic kidney disease. Calculated using CKD-EPI formula. BUN/Creatinine Ratio 20 9 - 20 [facility] ACCOUNT BILL Sodium 141 135 - 145 mmol/L [facility] ACCOUNT BILL Potassium 4.1 3.5 - 5.2 mmol/L [facility] ACCOUNT BILL Chloride 103 97 - 108 mmol/L [facility] ACCOUNT BILL CO2 23 20 - 32 mmol/L [facility] ACCOUNT BILL Calcium 9.0 8.7 - 10.2 mg/dL [facility] ACCOUNT BILL Protein Total 7.0 6.0 - 8.5 g/dL [facility] ACCOUNT BILL Albumin 4.3 3.5 - 5.5 g/dL [facility] ACCOUNT BILL Globulin Total 2.7 1.5 - 4.5 g/dL [facility] ACCOUNT BILL Albumin/Globulin Ratio 1.6 1.1 - 2.5 [facility] ACCOUNT BILL Bilirubin Total 0.4 0.0 - 1.2 mg/dL [facility] ACCOUNT BILL Alkaline Phosphatase 84 25 - 150 IU/L [facility] ACCOUNT BILL AST 24 0 - 40 IU/L [facility] ACCOUNT BILL ALT 24 0 - 55 IU/L [facility] ACCOUNT BILL BLOOD SPECIMEN / Unknown 01/16/2011 6:00 PM CDT 01/16/2011 10:24 PM CDT Narrative Resulting Agency Comment [facility] [address] ??[facility] [phone] Isidro Heredia MD LAB - CHEMISTRY ORD ERABLES [facility] ACCOUNT BILL * (ABNORMAL) C-REACTIVE PROTEIN (01/16/2011 6:00 PM CDT) C-Reactive Protein 5.8(H) 0.0 - 4.9 mg/L [facility] ACCOUNT BILL BLOOD SPECIMEN / Unknown 01/16/2011 6:00 PM CDT 01/16/2011 10:24 PM CDT Narrative Resulting Agency Comment [facility] [address] ??[facility] [phone] Isidro Heredia MD LAB - CHEMISTRY ORD ERABLES [facility] ACCOUNT BILL * (ABNORMAL) CBC W AUTO DIFFERENTIAL (01/16/2011 6:00 PM CDT) Pathologist [facility] WBC 9.6 4.0 - 10.5 x10E3/uL [facility] ACCOUNT BILL RBC 4.19 4.10 - 5.60 x10E6/uL [facility] ACCOUNT BILL Hemoglobin 12.4(L) 12.5 - 17.0 g/dL [facility] ACCOUNT BILL Hematocrit 38.2 36.0 - 50.0 % [facility] ACCOUNT BILL MCV 91 80 - 98 fL [facility] ACCOUNT BILL MCH 29.6 27.0 - 34.0 pg [facility] ACCOUNT BILL MCHC 32.5 32.0 - 36.0 g/dL [facility] ACCOUNT BILL RDW 14.8 11.7 - 15.0 % [facility] ACCOUNT BILL Platelet Count 225 140 - 415 x10E3/uL [facility] ACCOUNT BILL Granulocytes % 51 40 - 74 % [facility] ACCOUNT BILL Lymphocytes % 37 14 - 46 % [facility] ACCOUNT BILL Monocytes % 8 4 - 13 % [facility] ACCOUNT BILL Eosinophils % 3 0 - 7 % [facility] ACCOUNT BILL Basophils % 1 0 - 3 % [facility] ACCOUNT BILL Immature Cells NOT NEEDED [facility] ACCOUNT BILL Comment:Ancillary determined the test is not needed Granulocytes Absolute 5.0 1.8 - 7.8 x10E3/uL [facility] ACCOUNT BILL Lymphocytes Absolute 3.5 0.7 - 4.5 x10E3/uL [facility] ACCOUNT BILL Monocytes Absolute 0.8 0.1 - 1.0 x10E3/uL [facility] ACCOUNT BILL Eosinophils Absolute 0.3 0.0 - 0.4 x10E3/uL [facility] ACCOUNT BILL Basophils Absolute 0.1 0.0 - 0.2 x10E3/uL [facility] ACCOUNT BILL Immature Granulocytes 0 0 - 2 % [facility] ACCOUNT BILL Comment:Please note refere nce interval change Immature Granulocytes Absolute 0.0 0.0 - 0.1 x10E3/uL [facility] ACCOUNT BILL nRBC NOT NEEDED [facility] ACCOUNT BILL Comment:Ancillary determined the test is not needed Comment Hematology NOT NEEDED [facility] ACCOUNT BILL Comment:Ancillary determined the test is not needed BLOOD SPECIMEN / Unknown 01/16/2011 6:00 PM CDT 01/16/2011 10:24 PM CDT Narrative Resulting Agency Comment [facility] [address] ??[facility] [phone] Isidro Heredia MD LAB - HEMATOLOGY OR DERABLES [facility] ACCOUNT BILL documented in this encounter Visit Diagnoses Diagnosis Rheumatoid arthritis(714.0) (HCC)- Primary Rheumatoid arthritis Triceps tendonitis Other enthesopathy of elbow region documented in this encounter Care Teams Cylinder Filler Relationship Specialty Start Date End Date Nolberto Nicole MD PCP - General 07/21/08 12/30/13 documented as of this encounter
--- OUTSIDE RECORDS SUMMARY | 2024-05-03 04:15 | XMS_ITS | Encounter Summary ---
Author Organization [facility] Address [address] [facility] [place] [address] Care Team Providers Care Registered Pharmacist Name Role Phone Nolberto Nicole MD Primary Care Provider [phone] Isidro Heredia MD Unavailable [phone] Reason for Visit * Reason Comments Follow-up ra Pain Arm difficult to lift le ft arm. very sore. Swelling Hand obdulia Pain Knee obdulia Fatigue Pain Wrist obdulia Encounter Details Date Type Department Care Team (Late st Contact Info) Description 09/04/2011 4:30 PM CDT Office Visit [facility] - Rheumatology [address] [place] [address] Isidro Heredia MD [address] [place] [phone] Rheumatoid arthritis (HCC) (Primary Dx); Triceps tendonitis; Subacromial bursitis Social History Tobacco Use Types [...] Sign Reading Time Taken Comments Blood Pressure 110/78 09/04/2011 4:45 PM CDT Pulse 88 09/04/2011 4:45 PM CDT Temperature - - Respiratory Rate - - Oxygen Saturation - - Inhaled Oxygen Concentration - - Weight 109.8 kg (242 lb) 09/04/2011 4:45 PM CDT Height - - Body Mass Index 34.72 05/15/2011 5:19 PM SUPERVISOR HAIRSPRING FABRICATION documented in this encounter Progress Notes * Yamileth Rodríguez MA - 09/11/2011 10:49 AM CDTQuick Note: Letter mailed to patient regarding lab results. * Isidro Heredia MD - 09/10/2011 8:22 AM CDTQuick Note: mtx ok * Rea Hagan MA - 09/05/2011 11:41 AM CDTAddended by: REA HAGAN on: 09/05/2011 11:41 AM Modules accepted: Orders * Rea Hagan MA - 09/05/2011 11:26 AM CDT Ordered injection and complete immunization * Isidro Heredia MD - 09/04/2011 4:45 PM CDT Subjective: Chalino Deng 50 y.o. male Chief Complaint Patient presents with ??? Follow-up ra ??? Pain Arm difficult to lift left arm. very sore. ??? Swelling Hand obdulia ??? Pain Knee obdulia ??? Fatigue ??? Pain Wrist obdulia Current Outpatient Prescriptions on File Prior to Visit Medication Sig Dispense Refill ??? amoxicillin (AMOXIL) 500 MG capsule Take 500 mg by mouth 3 times daily. ??? tamsulosin CR 24hr (FLOMAX) 0.4 MG capsule Take 0.4 mg by mouth once daily. Take 30 minutes after a meal at the same time each day. ??? esomeprazole (NEXIUM) 40 MG capsule Take 1 Cap by mouth daily before breakfast. 90 Cap 3 ??? naproxen (NAPROSYN) 500 MG tablet Take 1 Tab by mouth 2 times daily. 180 Tab 3 ??? adalimumab (HUMIRA PEN) 40 MG/0.8ML injection Inject 0.8 mL subcutaneously every 7 days. 12 Kit3 ??? methotrexate (RHEUMATREX) 2.5 MG tablet Take 6 Tabs by mouth every 7 days. 72 Tab 3 ??? terbinafine (LAMISIL) 250 MG tablet Take 1 Tab by mouth once daily. 30 Tab 1 ??? fish oil/omega-3 fatty acids (FISH OIL) 1000 MG capsule Take 1,000 mg by mouth 2 times daily. ??? niacin, Immediate Release, 500 MG tablet Take 500 mg by mouth at bedtime. ??? Multiple Vitamin (MULTI-VITAMIN PO) Take by mouth once daily. ??? Jtopjgauexd-Ltpyjnxrw-Oke C-Mn (GLUCOSAMINE CHONDR 1500 COMPLX PO) Take by mouth once daily. ??? predniSONE (DELTASONE) 10 MG tablet Take 1 Tab by mouth daily. In the am and 1 tab in the pm 60Tab 6 ??? risedronate Sodium (ACTONEL) 150 MG tablet Take 1 Tab by mouth every 30 days. 3 Tab 3 ??? cyclobenzaprine (FLEXERIL) 10 MG tablet Take 1 Tab by mouth at bedtime. 30 Tab 6 ??? diclofenac sodium (VOLTAREN) 1 % gel Apply 1 g to affected area 4 times daily. 1 4 ??? ZYRTEC 10 MG TABS Take 10 mg by mouth once daily. Seasonal (nov. Patient Active Problem List Diagnoses ??? Rheumatoid Arthritis ??? GERD (Gastroesophageal Reflux Disease) ??? Osteopenia ??? ANEMIA History Smoking status ??? Never Smoker Smokeless tobacco ??? Not on file History Alcohol Use No History Drug Use Not on file back on mtx humira for ra And percocet for pain mgt Pain Level: 810 left shoulder hands wrists Knees waking uo at hs Am stiffness 1 hr Global 810 Fatigue y Medication Side Effects n Review [...] dysuria, frequency, urgency, kidney stones. SKIN: No rash, itching, dry skin MS: NEURO: No headaches, seizures, dizziness, confusion, numbness, tingling HEME: No bruising or bleeding, swollen glands EXTREMITIES: No cyanosis, clubbing, edema OTHER: fatigue Objective: BP 110/78 Pulse 88 Wt 242 lb (109.77 kg) Tender Joint Count 24 Swollen Joint Count 14 Muscles: Weak or Tender 0 Rheumatoid Nodules: 0 painful abduction left shoulder Physical Exam: wd wn wm in nad a/o gait ok HEENT perrla, hearing and vision intact, throat clear NECK- supple, no bruits adenopathy LUNGS- clear, no rales , rhonchi or wheezes HEART- Normal Sinus Rhythm, no S3, S4 or murmurs ABDOMEN- soft, no masses or tenderness, no organomegaly EXTREMITIES- no edema CIRCULATION- Intact SKIN- no rash Assessment: Encounter Diagnoses Name Primary? Rheumatoid arthritis ??? Triceps tendonitis Plan: Plan Orders Placed This Encounter ??? CBC W AUTO DIFFERENTIAL ??? COMPREHENSIVE METABOLIC PANEL ??? C-REACTIVE PROTEIN ??? SED RATE WESTERGREN ??? oxycodone-acetaminophen (PERCOCET) 5-325 MG tablet Sig: Take 1 Tab by mouth every 6 hours as needed for Pain. Dispense: 120 Tab Refill: 0 Same meds for ra And pain mgt poorly controlled Follow up in office in 4 weeks Under sterile condition, 2 cc's of tac were injected in the left subacromial bursa .. Patient tolerated procedure well without complications. * Rea Hagan MA - 09/04/2011 4:44 PM CDT Chief Complaint Patient presents with ??? Follow-up ra ??? Pain Arm difficult to lift left arm. very sore. ??? Swelling Hand obdulia ??? Pain Knee obdulia ??? Fatigue ??? Pain Wrist obdulia BP 110/78 Pulse 88 Wt 242 lb (109.77 kg) documented in this encounter Plan of Treatment Upcoming Encounters Date Type Department Care Team (Late st Contact Info) Description 06/03/2024 1:00 PM SUPERVISOR HAIRSPRING FABRICATION Appointment [facility] - Rheumatology [address] [place] [address] 06/03/2024 2:00 PM SUPERVISOR HAIRSPRING FABRICATION Office Visit [facility] - Rheumatology [address] [place] [address] Gloria Smith MD [address] [place] [phone] documented as of this encounter Procedures Procedure Name Priority Date/Time Associated Diagnosis Comments C-REACTIVE PROTEIN Routine 09/04/2011 5: 14 PM CDT Rheumatoid arthritis (HCC) ERYTHROCYTE SEDIMENTATION RATE Routine 09/04/2011 5:14 PM CDT Rheumatoid arthritis (HCC) CBC W AUTO DIFFERENTIAL Routine 09/04/2011 5:14 PM CDT Rheumatoid arthritis (HCC) COMPREHENSIVE METABOLIC PANEL Routine 09/04/2011 5:14 PM CDT Rheumatoid arthritis (HCC) documented in this encounter Results * (ABNORMAL) SED RATE WESTERGREN (09/04/2011 5:14 PM CDT) Erythrocyte Sedimentation Rate Westergren 23(H) 0 - 15 mm/hr [facility] ACCOUNT BILL Blood specimen (specimen) BLOOD SPECIMEN / Unknown 09/04/2011 5:14 PM CDT 09/04/2011 9:51 PM CDT Narrative Resulting Agency Comment [facility] [address] [facility] ??[facility] [phone] Isidro Heredia MD LAB - HEMATOLOGY OR DERABLES [facility] ACCOUNT BILL * (ABNORMAL) C-REACTIVE PROTEIN (09/04/2011 5:14 PM CDT) C-Reactive Protein 5.2(H) 0.0 - 4.9 mg/L [facility] ACCOUNT BILL Blood specimen (specimen) BLOOD SPECIMEN / Unknown 09/04/2011 5:14 PM CDT 09/04/2011 9:51 PM CDT Narrative Resulting Agency Comment [facility] [address] [facility] ??[facility] [id number] Isidro Heredia MD LAB - CHEMISTRY ORD ERABLES [facility] ACCOUNT BILL * COMPREHENSIVE METABOLIC PANEL (09/04/2011 5:14 PM CDT) Glucose 91 65 - 99 mg/dL [facility] ACCOUNT BILL BUN 19 6 - 24 mg/dL [facility] ACCOUNT BILL Creatinine 0.96 0.76 - 1.27 mg/dL [facility] ACCOUNT BILL eGFR by MDRD 93 >59 mL/min/1.7 3 [facility] ACCOUNT BILL eGFR by MDRD 108 >59 mL/min/1.7 3 [facility] ACCOUNT BILL BUN/Creatinine Ratio 20 9 - 20 [facility] ACCOUNT BILL Sodium 138 134 - 144 mmol/L [facility] ACCOUNT BILL Potassium 4.2 3.5 - 5.2 mmol/L [facility] ACCOUNT BILL Chloride 102 97 - 108 mmol/L [facility] ACCOUNT BILL CO2 22 20 - 32 mmol/L [facility] ACCOUNT BILL [...] 1.2 mg/dL [facility] ACCOUNT BILL Alkaline Phosphatase 96 25 - 150 IU/L [facility] ACCOUNT BILL AST 19 0 - 40 IU/L [facility] ACCOUNT BILL ALT 22 0 - 55 IU/L [facility] ACCOUNT BILL Blood specimen (specimen) BLOOD SPECIMEN / Unknown 09/04/2011 5:14 PM CDT 09/04/2011 9:51 PM CDT Narrative Resulting Agency Comment [facility] [address] [facility] ??[facility] [id number] Isidro Heredia MD LAB - CHEMISTRY ORD ERABLES [facility] ACCOUNT BILL * (ABNORMAL) CBC W AUTO DIFFERENTIAL (09/04/2011 5:14 PM CDT) WBC 10.3 4.0 - 10.5 x10E3/uL [facility] ACCOUNT BILL RBC 4.34 4.10 - 5.60 x10E6/uL [facility] ACCOUNT BILL Hemoglobin 12.5 12.5 - 17.0 g/dL [facility] ACCOUNT BILL Hematocrit 38.1 36.0 - 50.0 % [facility] ACCOUNT BILL MCV 88 80 - 98 fL [facility] ACCOUNT BILL MCH 28.8 27.0 - 34.0 pg [facility] ACCOUNT BILL MCHC 32.8 32.0 - 36.0 g/dL [facility] ACCOUNT BILL RDW 15.6(H) 11.7 - 15.0 % [facility] ACCOUNT BILL Platelet Count 251 140 - 415 x10E3/uL [facility] ACCOUNT BILL Granulocytes % 57 40 - 74 % [facility] ACCOUNT [...] the test is not needed Granulocytes Absolute 5.8 1.8 - 7.8 x10E3/uL [facility] ACCOUNT BILL Lymphocytes Absolute 3.6 0.7 - 4.5 x10E3/uL [facility] ACCOUNT BILL [...] Blood specimen (specimen) BLOOD SPECIMEN / Unknown 09/04/2011 5:14 PM CDT 09/04/2011 9:51 PM CDT Narrative Resulting Agency Comment [facility] [address] [facility] ??[facility] [id number] Isidro Heredia MD LAB - HEMATOLOGY OR DERABLES [facility] ACCOUNT BILL documented in this encounter Visit Diagnoses Diagnosis Rheumatoid arthritis(714.0) ([facility])- Primary Rheumatoid arthritis Triceps tendonitis Other enthesopathy of elbow region Subacromial bursitis Other specified disorders of rotator cuff syndrome of shoulder and allied disorders documented in this encounter Care Teams Registered Pharmacist Relationship Specialty Start Date End Date Nolberto Nicole MD PCP - General 07/21/08 12/30/13 Isidro Heredia MD Rheumatology 02/09/11 documented as of this encounter
--- OUTSIDE RECORDS SUMMARY | 2024-05-03 04:15 | XMS_ITS | Encounter Summary ---
Author Organization [facility] Address [address] [facility] [place] [address] Care Team Providers Care Photovoltaic Testing Technician Name Role Phone Nolberto Nicole MD Primary Care Provider [phone] Isidro Heredia MD Unavailable [phone] Reason for Visit * Reason Comments Follow-up RA Pain Hand swollen with pain Pa in Scale: 12/07 Stress lost father Encounter Details Date Type Department Care Team (Late st Contact Info) Description 02/12/2012 5:30 PM CDT Office Visit [facility] - Rheumatology [address] [place] [address] Isidro Heredia MD [address] [place] [phone] Rheumatoid arthritis (HCC) (Primary Dx); Triceps tendonitis; Chronic pain syndrome Social History Tobacco Use [...] Sign Reading Time Taken Comments Blood Pressure 124/86 02/12/2012 6:00 PM CDT Pulse 80 02/12/2012 6:00 PM CDT Temperature - - Respiratory Rate - - Oxygen Saturation - - Inhaled Oxygen Concentration - - Weight 112.5 kg (248 lb) 02/12/2012 6:00 PM CDT Height - - Body Mass Index 35.58 05/15/2011 5:19 PM SUPERVISOR LIME documented in this encounter Progress Notes * Rea Hagan MA - 02/29/2012 10:15 AM CDTQuick Note: Sent lab letter to pt * Isidro Heredia MD - 02/18/2012 9:05 PM CDTQuick Note: mtx ok k high due to damaged specimen * Isidro Heredia MD - 02/12/2012 6:24 PM CDT Subjective: Chalino Deng 51 y.o. male is here for Chief Complaint Patient presents with ??? Follow-up RA ??? Pain Hand swollen with pain Pain Scale: 8/10 ??? Stress lost father Current Outpatient Prescriptions on File Prior to Visit Medication Sig Dispense Refill ??? metaxalone (SKELAXIN) 800 MG tablet Take 1 Tab by mouth 3 times daily. 60 Tab 0 ??? tamsulosin CR 24hr (FLOMAX) 0.4 MG capsule Take 0.4 mg by mouth once daily. Take 30 minutes after a meal at the same time each day. ??? esomeprazole (NEXIUM) 40 MG capsule Take 1 Cap by mouth daily before breakfast. 90 Cap 3 ??? naproxen (NAPROSYN) 500 MG tablet Take 1 Tab by mouth 2 times daily. 180 Tab 3 ??? methotrexate (RHEUMATREX) 2.5 MG tablet Take [...] PO) Take by mouth once daily. ??? Gbzsvjxvwcz-Qxtujgtls-Qis C-Mn (GLUCOSAMINE CHONDR 1500 COMPLX PO) Take [...] No History Drug Use Not on file on mtx humira For ra and percocet for chronic pain Pain Level: 11/06 hands wrist knees elbows Am stiffness 1 hr Global 810 Fatigue yes Medication Side Effects no Review of Systems: General: No fever, chills, [...] Physical Exam: wd wn wm in nad A/o gait ok BP 124/86 Pulse 80 Wt 248 lb (112.492 kg) Head: perrla, eyes no irritation, vision [...] 10/TJ, 4/SJ, 0/muscle tenderness or weakness RLE: 1/TJ, 0/SJ, 0/muscle tenderness or weakness knees LLE: 1/TJ, 0/SJ, 0/muscle tenderness or weakness Assessment: Encounter Diagnoses Name Primary? Rheumatoid arthritis ??? Triceps tendonitis ??? Chronic pain syndrome poorly controlled chronic pain and ra Same meds Plan: Plan Orders Placed This Encounter ??? CBC W AUTO DIFFERENTIAL ??? COMPREHENSIVE METABOLIC PANEL ??? C-REACTIVE PROTEIN ??? SED RATE WESTERGREN ??? oxycodone-acetaminophen (PERCOCET) 5-325 MG tablet Sig: Take 1 Tab by mouth every 6 hours as needed for Pain. Dispense: 120 Tab Refill: 0 ??? cyclobenzaprine (FLEXERIL) 10 MG tablet Sig: Take 1 Tab by mouth at bedtime. Dispense: 90 Tab Refill: 3 ??? adalimumab (HUMIRA PEN) 40 MG/0.8ML injection Sig: Inject 0.8 mL subcutaneously every 14 days. (3 month Supply) X 3 refills = 1 yr Dispense: 3 Kit Refill: 3 Follow up in office in 4 weeks * Rea Hagan MA - 02/12/2012 5:59 PM CDT Chief Complaint Patient presents with ??? Follow-up RA ??? Pain Hand swollen with pain Pain Scale: 8/10 ??? Stress lost father BP 124/86 Pulse 80 Wt 248 lb (112.492 kg) documented in this encounter Plan of Treatment Upcoming Encounters Date Type Department Care Team (Late st Contact Info) Description 06/03/2024 1:00 PM SUPERVISOR LIME Appointment [facility] - Rheumatology [address] [place] [address] 06/03/2024 2:00 PM SUPERVISOR LIME Office Visit [facility] - Rheumatology [address] [place] [address] [phone] Gloria Smith MD [address] [place] [phone] documented as of this encounter Procedures Procedure Name Priority Date/Time Associated Diagnosis Comments C-REACTIVE PROTEIN Routine 02/13/2012 8: 47 AM CDT Rheumatoid arthritis (HCC) ERYTHROCYTE SEDIMENTATION RATE Routine 02/13/2012 8:47 AM CDT Rheumatoid arthritis (HCC) CBC W AUTO DIFFERENTIAL Routine 02/13/2012 8:47 AM CDT Rheumatoid arthritis (HCC) COMPREHENSIVE METABOLIC PANEL Routine 02/13/2012 8:47 AM CDT Rheumatoid arthritis (HCC) documented in this encounter Results * (ABNORMAL) SED RATE WESTERGREN (02/13/2012 8:47 AM CDT) Erythrocyte Sedimentation Rate Westergren 21(H) 0 - 15 mm/hr [facility] ACCOUNT BILL Blood specimen (specimen) BLOOD SPECIMEN / Unknown 02/13/2012 8:47 AM CDT 02/13/2012 6:02 PM CDT Narrative Resulting Agency Comment [facility] [address] [facility] ??[facility] [id number] Isidro Heredia MD LAB - HEMATOLOGY OR DERABLES [facility] ACCOUNT BILL * (ABNORMAL) C-REACTIVE PROTEIN (02/13/2012 8:47 AM CDT) C-Reactive Protein 5.4(H) 0.0 - 4.9 mg/L [facility] ACCOUNT BILL Blood specimen (specimen) BLOOD SPECIMEN / Unknown 02/13/2012 8:47 AM CDT 02/13/2012 6:02 PM CDT Narrative Resulting Agency Comment [facility] [address] [place] [address] ??[facility] [id number] Isidro Heredia MD LAB - CHEMISTRY ORD ERABLES [facility] ACCOUNT BILL * (ABNORMAL) COMPREHENSIVE METABOLIC PANEL (02/13/2012 8:47 AM CDT) Glucose 73 65 - 99 mg/dL [facility] ACCOUNT BILL BUN 28(H) 6 - 24 mg/dL [facility] ACCOUNT BILL Creatinine 1.05 0.76 - 1.27 mg/dL [facility] ACCOUNT BILL eGFR by MDRD 83 >59 mL/min/1.7 3 [facility] ACCOUNT BILL eGFR by MDRD 96 >59 mL/min/1.7 3 [facility] ACCOUNT BILL BUN/Creatinine Ratio 27(H) 9 - 20 [facility] ACCOUNT BILL Sodium 139 134 - 144 mmol/L [facility] ACCOUNT BILL Potassium 5.8(H) 3.5 - 5.2 mmol/L [facility] ACCOUNT BILL Comment: This serum sample was in contact with the red cells when received. This may adversely affect serum Chemistries. Chloride 102 97 - 108 mmol/L [facility] ACCOUNT BILL CO2 19(L) 20 - 32 mmol/L [facility] ACCOUNT BILL Calcium 9.2 8.7 - 10.2 mg/dL [facility] ACCOUNT BILL Protein Total 6.9 6.0 - 8.5 g/dL [facility] ACCOUNT BILL Albumin 4.3 3.5 - 5.5 g/dL [facility] ACCOUNT BILL Globulin Total 2.6 1.5 - 4.5 g/dL [facility] ACCOUNT BILL Albumin/Globulin Ratio 1.7 1.1 - 2.5 [facility] ACCOUNT BILL Bilirubin Total 0.3 0.0 - 1.2 mg/dL [facility] ACCOUNT BILL Alkaline Phosphatase 92 25 - 150 IU/L [facility] ACCOUNT BILL AST 21 0 - 40 IU/L [facility] ACCOUNT BILL ALT 23 0 - 55 IU/L [facility] ACCOUNT BILL Comment: ? Effective February 26, 2012 the reference interval ? for ALT (SGPT) will be changing to: ? Male ?Female ?0 - 11 years ?0 - 29 ? 0 - 28 ? 12 - 17 years ?0 - 30 ? 0 - 24 ?> 17 years ?0 - 44 ? 0 - 32 Blood specimen (specimen) BLOOD SPECIMEN / Unknown 02/13/2012 8:47 AM CDT 02/13/2012 6:02 PM CDT Narrative Resulting Agency Comment [facility] [address] ??[facility] [id number] Isidro Heredia MD LAB - CHEMISTRY ORD ERABLES [facility] ACCOUNT BILL * (ABNORMAL) CBC W AUTO DIFFERENTIAL (02/13/2012 8:47 AM CDT) WBC 12.1(H) 4.0 - 10.5 x10E3/uL [facility] ACCOUNT BILL RBC 4.06(L) 4.14 - 5.80 x10E6/uL [facility] ACCOUNT BILL Hemoglobin 12.7 12.6 - 17.7 g/dL [facility] ACCOUNT BILL Hematocrit 37.3(L) 37.5 - 51.0 % [facility] ACCOUNT BILL MCV 92 79 - 97 fL [facility] ACCOUNT BILL MCH 31.3 26.6 - 33.0 pg [facility] ACCOUNT BILL MCHC 34.0 31.5 - 35.7 g/dL [facility] ACCOUNT BILL RDW 15.3 12.3 - 15.4 % [facility] ACCOUNT BILL Platelet Count 222 140 - 415 x10E3/uL [facility] ACCOUNT BILL Granulocytes % 60 40 - 74 % [facility] ACCOUNT BILL Lymphocytes % 31 14 - 46 % [facility]OUNT B[facility] Monocytes % 6 4 - 13 % [facility] ACCOUNT BILL Eosinophils % 2 0 - 7 % [facility] ACCOUNT BILL Basophils % 1 0 - 3 % [facility] ACCOUNT BILL Immature Cells NOT NEEDED [facility] ACCOUNT BILL Comment:Ancillary determined the test is not needed Granulocytes Absolute 7.3 1.8 - 7.8 x10E3/uL [facility] ACCOUNT BILL Lymphocytes Absolute 3.7 0.7 - 4.5 x10E3/uL [facility] ACCOUNT BILL [...] Blood specimen (specimen) BLOOD SPECIMEN / Unknown 02/13/2012 8:47 AM CDT 02/13/2012 6:02 PM CDT Narrative Resulting Agency Comment [facility] [address] ??[facility] [id number] Isidro Heredia MD LAB - HEMATOLOGY OR DERABLES [facility] ACCOUNT BILL documented in this encounter Visit Diagnoses Diagnosis Rheumatoid arthritis(714.0) (HCC)- Primary Rheumatoid arthritis Triceps tendonitis Other enthesopathy of elbow region Chronic pain syndrome documented in this encounter Care Teams Photovoltaic Testing Technician Relationship Specialty Start Date End Date Nolberto Nicole MD PCP - General 07/21/08 12/30/13 Isidro Heredia MD Rheumatology 02/09/11 documented as of this encounter
--- OUTSIDE RECORDS SUMMARY | 2024-05-03 04:15 | XMS_ITS | Encounter Summary ---
Author Organization [facility] Address [address] [facility] [place] [address] Care Team Providers Care Marbleizer Name Role Phone Nolberto Nicole MD Primary Care Provider [phone] Isidro Heredia MD Unavailable [phone] Reason for Visit * Reason Comments Follow-up RA Pain Hand obdulia with swelling. r t is worse with tingling sensation * Evaluate & Treat (Routine) - Closed Specialty Diagnoses / Procedures Referred By Lawrence shah Referred To Contact Diagnoses Rheumatoid arthritis(714.0) (HCC) Procedures [place] OFFICE VISIT DURING HOURS Nolberto Nicole MD [address] [place] [phone] Isidro Heredia MD [address] [place] [address] Referral ID Status Reason Start Date Expiration Date Visits Re quested Visits Authorized [id number] Closed 08/03/2011 01/30/2012 1 12 Encounter Details Date Type Department Care Team (Late st Contact Info) Description 08/07/2011 5:15 PM CDT Office Visit [facility] - Rheumatology [address] [place] [address] Isidro Heredia MD [address] [place] [address] Rheumatoid arthritis (HCC) (Primary Dx); Triceps tendonitis; Pneumonia Social History Tobacco Use Types Packs/Day Years [...] Sign Reading Time Taken Comments Blood Pressure 110/70 08/07/2011 6:06 PM CDT Pulse 104 08/07/2011 6:06 PM CDT Temperature - - Respiratory Rate - - Oxygen Saturation - - Inhaled Oxygen Concentration - - Weight 108.4 kg (239 lb) 08/07/2011 6:06 PM CDT Height - - Body Mass Index 34.29 05/15/2011 5:19 PM RAILROAD FIRER/FIREMAN documented in this encounter Progress Notes * Isidro Heredia MD - 08/07/2011 6:07 PM CDT Subjective: Chalino Deng 50 y.o. male Chief Complaint Patient presents with ??? Follow-up RA ??? Pain Hand obdulia with swelling. rt is worse with tingling sensation Current Outpatient Prescriptions on File Prior to Visit Medication Sig Dispense Refill ??? adalimumab (HUMIRA PEN) 40 MG/0.8ML injection Inject 0.8 mL subcutaneously every 7 days. 12 Kit3 ??? methotrexate (RHEUMATREX) 2.5 MG tablet Take 6 Tabs by mouth every 7 days. 72 Tab 3 ??? oxycodone-acetaminophen (PERCOCET) 5-325 MG tablet Take 1 Tab by mouth every 6 hours as needed for Pain. 120 Tab 0 ??? esomeprazole (NEXIUM) 40 MG capsule Take [...] PO) Take by mouth once daily. ??? Vwiptjqtlsr-Pglzljfvw-Ljy C-Mn (GLUCOSAMINE CHONDR 1500 COMPLX PO) Take [...] area 4 times daily. 1 4 ??? terbinafine (LAMISIL) 250 MG tablet Take [...] No History Drug Use Not on file he was in the hosp in may with pn Then went to er with urinary retention saw urologist needs cysto On mtx humira but they were held for 3-4 weeks He missed several weeks work Pain Level: 8/10 hands knees feet shoulders Am stiffness 1 hr Global 7/10 Fatigue y Medication Side Effects n Rev old notes and labs Review of Systems: GENERAL: No fever, chills, [...] NEURO: No headaches, seizures, dizziness, confusion, numbness, He has tingling rt hand HEME: No bruising or bleeding, swollen glands EXTREMITIES: No cyanosis, clubbing, edema OTHER: Objective: BP 110/70 Pulse 104 Wt 239 lb (108.41 kg) Tender Joint Count Swollen Joint Count 12/25 Muscles: Weak or Tender 0 Rheumatoid Nodules: 0 Physical Exam: wd wn wm in nad a/o HEENT perrla, hearing and vision intact, throat clear NECK- supple, no bruits LUNGS- clear, no rales , rhonchi or wheezes HEART- Normal Sinus Rhythm, no S3, S4 or murmurs ABDOMEN- soft, no masses or tenderness, no organomegaly EXTREMITIES- no edema CIRCULATION- Intact SKIN- no rash Assessment: No diagnosis found. Plan: Plan No orders of the defined types were placed in this encounter. Same meds for ra stable and pain mgt Follow up in office in 4 mo * Rea Hagan MA - 08/07/2011 6:04 PM CDT Chief Complaint Patient presents with ??? Follow-up RA ??? Pain Hand obdulia with swelling. rt is worse with tingling sensation BP 110/70 Pulse 104 Wt 239 lb (108.41 kg) documented in this encounter Plan of Treatment Upcoming Encounters Date Type Department Care Team (Late st Contact Info) Description 06/03/2024 1:00 PM RAILROAD FIRER/FIREMAN Appointment [facility] - Rheumatology [address] [place] [address] 06/03/2024 2:00 PM RAILROAD FIRER/FIREMAN Office Visit [facility] - Rheumatology [address] [place] [address] Gloria Smith MD [address] [place] [phone] documented as of this encounter Visit Diagnoses Diagnosis Rheumatoid arthritis(714.0) (HCC)- Primary Rheumatoid arthritis Triceps tendonitis Other enthesopathy of elbow region Pneumonia Pneumonia, organism unspecified documented in this encounter Care Teams Marbleizer Relationship Specialty Start Date End Date Nolberto Nicole MD PCP - General 07/21/08 12/30/13 Isidro Heredia MD Rheumatology 02/09/11 documented as of this encounter
--- OUTSIDE RECORDS SUMMARY | 2024-05-03 04:15 | XMS_ITS | Encounter Summary ---
Author Organization [facility] Address [address] [place] [address] [place] [address] Care Team Providers Care Fuel Cell Engineer Name Role Phone Nolberto Nicole MD Primary Care Provider [phone] Reason for Visit * Reason Comments Follow-up RA Fatigue Encounter Details Date Type Department Care Team (Late st Contact Info) Description 11/14/2010 5:15 PM CDT Office Visit [facility] - Rheumatology [address] [place] [address] [phone] Isidro Heredia MD [address] [place] [address] Rheumatoid arthritis (HCC) (Primary Dx); Triceps tendonitis [...] Sign Reading Time Taken Comments Blood Pressure 118/82 11/14/2010 5:25 PM CDT Pulse 80 11/14/2010 5:25 PM CDT Temperature - - Respiratory Rate - - Oxygen Saturation - - Inhaled Oxygen Concentration - - Weight 110.7 kg (244 lb) 11/14/2010 5:25 PM CDT Height - - Body Mass Index 35.01 02/08/2009 5:43 PM CDT documented in this encounter Progress Notes * Isidro Heredia MD - 11/14/2010 5:26 PM CDT Chief Complaint Patient presents with ??? Follow-up RA ??? Fatigue BP 118/82 Pulse 80 Wt 244 lb (110.678 kg) Subjective: Chalino Deng 50 y.o. male Chief Complaint Patient presents with ??? Follow-up RA ??? Fatigue Current Outpatient Prescriptions on File Prior to [...] No History Drug Use Not on file good relief with local steroids right shoulder He has been traveling a lot On mtx humira Pain Level: 8 Am stiffness 1 hr more tired than usual Global 11/06 Fatigue y Medication Side Effects n Review of Systems: GENERAL: No fever, chills, sweats, weight loss EARS: No wax or hearing loss. NOSE: No runny nose, bleeding, sinus drainage MOUTH: No gingivitis or stomatitis GI: No nausea vomiting, abdominal pain,, anorexia, gerd diarrhea HEART: No chest pain, palpitations, orthopnea, syncope LUNGS: No shortness of breath, cough, pleurisy, wheezing : No nocturia, dysuria, frequency, urgency, kidney stones. SKIN: No rash, itching, dry skin MS: NEURO: He has headaches, No seizures, dizziness, confusion, numbness, tingling HEME: No bruising or bleeding, swollen glands EXTREMITIES: No cyanosis, clubbing, edema OTHER: Objective: BP 118/82 Pulse 80 Wt 244 lb (110.678 kg) Tender Joint Count Swollen Joint Count 03/27 Muscles: Weak or Tender 0 Rheumatoid Nodules: [...] ??? C-REACTIVE PROTEIN ??? SED RATE WESTERGREN AUTO ??? oxycodone-acetaminophen (PERCOCET) 5-325 MG tablet Sig: Take 1 Tab by mouth every 6 hours as needed for Pain. Dispense: 120 Tab Refill: 0 Follow up in office in 4 weeks documented in this encounter Plan of Treatment Upcoming Encounters Date Type Department Care Team (Late st Contact Info) Description 06/03/2024 1:00 PM TECHNOLOGY PROJECT MANAGER Appointment [facility] - Rheumatology [address] [place] [address] 06/03/2024 2:00 PM TECHNOLOGY PROJECT MANAGER Office Visit [facility] - Rheumatology [address] [place] [address] [place] [address] Gloria Smith MD [address] [place], [place] [address] [phone] documented as of this encounter Procedures Procedure Name Priority Date/Time Associated Diagnosis Comments C-REACTIVE PROTEIN Routine 11/14/2010 5: 52 PM CDT Rheumatoid arthritis (HCC) ERYTHROCYTE SEDIMENTATION RATE Routine 11/14/2010 5:52 PM CDT Rheumatoid arthritis (HCC) CBC W AUTO DIFFERENTIAL Routine 11/14/2010 5:52 PM CDT Rheumatoid arthritis (HCC) COMPREHENSIVE METABOLIC PANEL Routine 11/14/2010 5:52 PM CDT Rheumatoid arthritis (HCC) documented in this encounter Results * (ABNORMAL) SED RATE WESTERGREN AUTO (11/14/2010 5:52 PM CDT) Erythrocyte Sedimentation Rate Westergren 24(H) 0 - 23 mm/hr [facility] ACCOUNT BILL BLOOD SPECIMEN / Unknown 11/14/2010 5:52 PM CDT 11/14/2010 8:52 PM CDT Narrative Resulting Agency Comment [facility] [employer] [facility] ??[facility] [phone] Isidro Heredia MD LAB - HEMATOLOGY OR DERABLES [facility] ACCOUNT BILL * (ABNORMAL) C-REACTIVE PROTEIN (11/14/2010 5:52 PM CDT) C-Reactive Protein 7.9(H) 0.0 - 4.9 mg/L [facility] ACCOUNT BILL BLOOD SPECIMEN / Unknown 11/14/2010 5:52 PM CDT 11/14/2010 8:52 PM CDT Narrative Resulting Agency Comment [facility] [address] [facility] ??[facility] [phone] Isidro Heredia MD LAB - CHEMISTRY ORD ERABLES [facility] ACCOUNT BILL * (ABNORMAL) COMPREHENSIVE METABOLIC PANEL (11/14/2010 5:52 PM CDT) Glucose 105(H) 65 - 99 mg/dL [facility] ACCOUNT BILL BUN 28(H) 6 - 24 mg/dL [facility] ACCOUNT BILL Creatinine 1.17 0.76 - 1.27 mg/dL [facility] ACCOUNT BILL eGFR by MDRD 73 >59 mL/min/1.7 3 [facility] ACCOUNT BILL eGFR by MDRD 85 >59 mL/min/1.7 3 [facility] ACCOUNT BILL Comment: Note: A persistent eGFR <60 mL/min/1.73 m2 (3 months or more) may indicate chronic kidney disease. An eGFR >59 mL/min/1.73 m2 with an elevated urine protein also may indicate chronic kidney disease. Calculated using CKD-EPI formula. BUN/Creatinine Ratio 24(H) 9 - 20 [facility] ACCOUNT BILL Sodium 139 135 - 145 mmol/L [facility] ACCOUNT BILL Potassium 4.5 3.5 - 5.2 mmol/L [facility] ACCOUNT BILL Chloride 102 97 - 108 mmol/L [facility] ACCOUNT BILL CO2 21 20 - 32 mmol/L [facility] ACCOUNT BILL Calcium 9.1 8.7 - 10.2 mg/dL [facility] ACCOUNT BILL Protein Total 7.2 6.0 - 8.5 g/dL [facility] ACCOUNT BILL Albumin 4.2 3.5 - 5.5 g/dL [facility] ACCOUNT BILL Globulin Total 3.0 1.5 - 4.5 g/dL [facility] ACCOUNT BILL Albumin/Globulin Ratio 1.4 1.1 - 2.5 [facility] ACCOUNT BILL Bilirubin Total 0.3 0.0 - 1.2 mg/dL [facility] ACCOUNT BILL Alkaline Phosphatase 88 25 - 150 IU/L [facility] ACCOUNT BILL AST 22 0 - 40 IU/L [facility] ACCOUNT BILL ALT 21 0 - 55 IU/L [facility] ACCOUNT BILL BLOOD SPECIMEN / Unknown 11/14/2010 5:52 PM CDT 11/14/2010 8:52 PM CDT Narrative Resulting Agency Comment [facility] [place] [address] [facility] ??[facility] [phone] Isidro Heredia MD LAB - CHEMISTRY ORD ERABLES [facility] ACCOUNT BILL * (ABNORMAL) CBC W AUTO DIFFERENTIAL (11/14/2010 5:52 PM CDT) WBC 10.3 4.0 - 10.5 x10E3/uL [facility] ACCOUNT BILL RBC 4.33 4.10 - 5.60 x10E6/uL [facility] ACCOUNT BILL Hemoglobin 12.4(L) 12.5 - 17.0 g/dL [facility] ACCOUNT BILL Hematocrit 38.5 36.0 - 50.0 % [facility] ACCOUNT BILL MCV 89 80 - 98 fL [facility] ACCOUNT BILL MCH 28.6 27.0 - 34.0 pg [facility] ACCOUNT BILL MCHC 32.2 32.0 - 36.0 g/dL [facility] ACCOUNT BILL RDW 15.7(H) 11.7 - 15.0 % [facility] ACCOUNT BILL Platelet Count 230 140 - 415 x10E3/uL [facility] ACCOUNT BILL Granulocytes % 68 40 - 74 % [facility] ACCOUNT [...] the test is not needed Granulocytes Absolute 7.1 1.8 - 7.8 x10E3/uL [facility] ACCOUNT BILL Lymphocytes Absolute 2.4 0.7 - 4.5 x10E3/uL [facility] ACCOUNT BILL [...] is not needed BLOOD SPECIMEN / Unknown 11/14/2010 5:52 PM CDT 11/14/2010 8:52 PM CDT Narrative Resulting Agency Comment [facility] [address] ??[facility] [phone] Isidro Heredia MD LAB - HEMATOLOGY OR DERABLES [facility] ACCOUNT BILL documented in this encounter Visit Diagnoses Diagnosis Rheumatoid arthritis(714.0) (HCC)- Primary Rheumatoid arthritis Triceps tendonitis Other enthesopathy of elbow region documented in this encounter Care Teams Fuel Cell Engineer Relationship Specialty Start Date End Date Nolberto Nicole MD PCP - General 07/21/08 12/30/13 documented as of this encounter
--- OUTSIDE RECORDS SUMMARY | 2024-05-03 04:15 | XMS_ITS | Encounter Summary ---
Author Organization [facility] Address [address] [place] [address] Care Team Providers Care Manager Military Name Role Phone Nolberto Nicole MD Primary Care Provider Isidro Heredia MD Unavailable Reason for Visit * Reason Comments Follow-up RAa Arthritis joint achey all over Swelling Hand obdulia * Consult, Test & Treat (Routine) - Closed Specialty Diagnoses / Procedures Referred By Lawrence shah Referred To Contact Diagnoses Rheumatoid arthritis(714.0) (HCC) Procedures [place] OFFICE VISIT DURING HOURS Nolberto Nicole MD [address] [place] [address] Isidro Heredia MD [address] [place] [address] Referral ID Status Reason Start Date Expiration Date Visits Re quested Visits Authorized [id number] Closed 01/06/2011 07/04/2011 1 5 Encounter Details Date Type Department Care Team (Late st Contact Info) Description 04/17/2011 5:00 PM BILLET WORKER Office Visit [facility] - Rheumatology [address] [place] [address] Isidro Heredia MD [address] [place] [address] Rheumatoid arthritis (HCC) (Primary Dx); [...] Reading Time Taken Comments Blood Pressure 130/80 04/17/2011 5:22 PM BILLET WORKER Pulse 76 04/17/2011 5:23 PM BILLET WORKER Temperature - - Respiratory Rate - - Oxygen Saturation - - Inhaled Oxygen Concentration - - Weight 108.4 kg (239 lb) 04/17/2011 5:23 PM BILLET WORKER Height - - Body Mass Index 34.29 02/08/2009 5:43 PM CDT documented in this encounter Progress Notes * Corry Santizo MA - 04/27/2011 3:41 PM CSTQuick Note: Letter mailed to patient regarding lab results. ET WORKER * Isidro Heredia MD - 04/24/2011 3:48 PM CSTQuick Note: mtx ok ET WORKER * Isidro Heredia MD - 04/17/2011 5:21 PM CST Subjective: Chalino Deng 50 y.o. male Chief Complaint Patient presents with ??? Follow-up RAa ??? Arthritis joint achey all over ??? Swelling Hand obdulia Current Outpatient Prescriptions on File Prior to Visit Medication Sig Dispense Refill ??? fish oil/omega-3 fatty acids (FISH OIL) 1000 MG capsule Take 1,000 mg by mouth 2 times daily. ??? niacin, Immediate Release, 500 MG tablet Take 500 mg by mouth at bedtime. ??? Multiple Vitamin (MULTI-VITAMIN PO) Take by mouth once daily. ??? Qjwfmhnzyzb-Qoiudxsom-Mdp C-Mn (GLUCOSAMINE CHONDR 1500 COMPLX PO) Take by mouth once daily. ??? methotrexate (RHEUMATREX) 2.5 MG tablet Take [...] Use Not on file on mtx humira and percocet pred 20 mg Pain Level: 8/10 hands wrists knees Am stiffness 1 hr Global 8/10 Fatigue y Medication Side Effects n Review [...] No cyanosis, clubbing, edema OTHER: Objective: BP 130/80 Pulse 76 Wt 239 lb (108.41 kg) Tender Joint Count 26/28 Swollen Joint Count 18/28 Muscles: Weak or Tender 0 Rheumatoid Nodules: 0 Physical Exam: HEENT perrla, hearing and vision intact, throat [...] for Pain. Dispense: 120 Tab Refill: 0 apply for actemra Follow up in office in 4 weeks ET WORKER * Rea Hagan MA - 04/17/2011 5:21 PM CST Chief Complaint Patient presents with ??? Follow-up RAa ??? Arthritis joint achey all over ??? Swelling Hand obdulia BP 130/80 Pulse 76 Wt 239 lb (108.41 kg) ET WORKER documented in this encounter Plan of Treatment Upcoming Encounters Date Type Department Care Team (Late st Contact Info) Description 06/03/2024 1:00 PM BILLET WORKER Appointment [facility] - Rheumatology [address] [place] [address] 06/03/2024 2:00 PM BILLET WORKER Office Visit [facility] - Rheumatology [address] [place] [address] Gloria Smith MD [address] [place] [phone] documented as of this encounter Procedures Procedure Name Priority Date/Time Associated Diagnosis Comments C-REACTIVE PROTEIN Routine 04/17/2011 5: 13 PM BILLET WORKER Rheumatoid arthritis (HCC) ERYTHROCYTE SEDIMENTATION RATE Routine 04/17/2011 5:13 PM BILLET WORKER Rheumatoid arthritis (HCC) CBC W AUTO DIFFERENTIAL Routine 04/17/2011 5:13 PM BILLET WORKER Rheumatoid arthritis (HCC) COMPREHENSIVE METABOLIC PANEL Routine 04/17/2011 5:13 PM BILLET WORKER Rheumatoid arthritis (HCC) documented in this encounter Results * SED RATE WESTERGREN AUTO (04/17/2011 5:13 PM BILLET WORKER) Erythrocyte Sedimentation Rate Westergren 23 0 - 23 mm/hr [facility] ACCOUNT BILL Blood specimen (specimen) BLOOD SPECIMEN / Unknown 04/17/2011 5:13 PM BILLET WORKER 04/17/2011 10:15 PM BILLET WORKER Narrative Resulting Agency Comment [facility] [place] [address] ??[facility] [phone] Isidro Heredia MD LAB - HEMATOLOGY OR DERABLES [facility] ACCOUNT BILL * (ABNORMAL) C-REACTIVE PROTEIN (04/17/2011 5:13 PM BILLET WORKER) C-Reactive Protein 16.0(H) 0.0 - 4.9 mg/L [facility] ACCOUNT BILL Blood specimen (specimen) BLOOD SPECIMEN / Unknown 04/17/2011 5:13 PM BILLET WORKER 04/17/2011 10:15 PM BILLET WORKER Narrative Resulting Agency Comment [facility] [address] ??[facility] [phone] Isidro Heredia MD LAB - CHEMISTRY ORD ERABLES [facility] ACCOUNT BILL * (ABNORMAL) COMPREHENSIVE METABOLIC PANEL (04/17/2011 5:13 PM BILLET WORKER) Glucose 106(H) 65 - 99 mg/dL [facility] ACCOUNT BILL BUN 23 6 - 24 mg/dL [facility] ACCOUNT BILL Creatinine 0.97 0.76 - 1.27 mg/dL [facility] ACCOUNT BILL eGFR by MDRD 92 >59 mL/min/1.7 3 [facility] ACCOUNT BILL eGFR by MDRD 106 >59 mL/min/1.7 3 [facility] ACCOUNT BILL Comment: Note: A persistent eGFR <60 mL/min/1.73 m2 (3 months or more) may indicate chronic kidney disease. An eGFR >59 mL/min/1.73 m2 with an elevated urine protein also may indicate chronic kidney disease. Calculated using CKD-EPI formula. BUN/Creatinine Ratio 24(H) 9 - 20 [facility] ACCOUNT BILL Sodium 139 134 - 144 mmol/L [facility] ACCOUNT BILL Comment:Please note refere nce interval change Potassium 4.0 3.5 - 5.2 mmol/L [facility] ACCOUNT BILL Chloride 104 97 - 108 mmol/L [facility] ACCOUNT BILL CO2 20 20 - 32 mmol/L [facility] ACCOUNT BILL Calcium 9.7 8.7 - 10.2 mg/dL [facility] ACCOUNT BILL Protein Total 7.1 6.0 - 8.5 g/dL [facility] ACCOUNT BILL Albumin 4.4 3.5 - 5.5 g/dL [facility] ACCOUNT BILL Globulin Total 2.7 1.5 - 4.5 g/dL [facility] ACCOUNT BILL Albumin/Globulin Ratio 1.6 1.1 - 2.5 [facility] ACCOUNT BILL Bilirubin Total 0.3 0.0 - 1.2 mg/dL [facility] ACCOUNT BILL Alkaline Phosphatase 84 25 - 150 IU/L [facility] ACCOUNT BILL AST 26 0 - 40 IU/L [facility] ACCOUNT BILL ALT 28 0 - 55 IU/L [facility] ACCOUNT BILL Blood specimen (specimen) BLOOD SPECIMEN / Unknown 04/17/2011 5:13 PM BILLET WORKER 04/17/2011 10:15 PM BILLET WORKER Narrative Resulting Agency Comment [facility] [address] ??[facility] [phone] Isidro Heredia MD LAB - CHEMISTRY ORD ERABLES [facility] ACCOUNT BILL * (ABNORMAL) CBC W AUTO DIFFERENTIAL (04/17/2011 5:13 PM BILLET WORKER) WBC 10.0 4.0 - 10.5 x10E3/uL [facility] ACCOUNT BILL RBC 4.38 4.10 - 5.60 x10E6/uL [facility] ACCOUNT BILL Hemoglobin 12.6 12.5 - 17.0 g/dL [facility] ACCOUNT BILL Hematocrit 38.3 36.0 - 50.0 % [facility] ACCOUNT BILL MCV 87 80 - 98 fL [facility] ACCOUNT BILL MCH 28.8 27.0 - 34.0 pg [facility] ACCOUNT BILL MCHC 32.9 32.0 - 36.0 g/dL [facility] ACCOUNT BILL RDW 16.4(H) 11.7 - 15.0 % [facility] ACCOUNT BILL Platelet Count 217 140 - 415 x10E3/uL [facility] ACCOUNT BILL Granulocytes % 57 40 - 74 % [facility] ACCOUNT BILL Lymphocytes % 34 14 - 46 % [facility] ACCOUNT BILL Monocytes % 7 4 - 13 % [facility] ACCOUNT BILL Eosinophils % 2 0 - 7 % [facility] ACCOUNT BILL Basophils % 0 0 - 3 % [facility] ACCOUNT BILL Immature Cells NOT NEEDED [facility] ACCOUNT BILL Comment:Ancillary determined the test is not needed Granulocytes Absolute 5.7 1.8 - 7.8 x10E3/uL [facility] ACCOUNT BILL [...] Blood specimen (specimen) BLOOD SPECIMEN / Unknown 04/17/2011 5:13 PM BILLET WORKER 04/17/2011 10:15 PM BILLET WORKER Narrative Resulting Agency Comment [facility] [place] [id number] [facility] ??[facility] [phone] Isidro Heredia MD LAB - HEMATOLOGY OR DERABLES [facility] ACCOUNT BILL documented in this encounter Visit Diagnoses Diagnosis Rheumatoid arthritis(714.0) (HCC)- Primary Rheumatoid arthritis Triceps tendonitis Other enthesopathy of elbow region documented in this encounter Care Teams Manager Military Relationship Specialty Start Date End Date Nolberto Nicole MD PCP - General 07/21/08 12/30/13 Isidro Heredia MD Rheumatology 02/09/11 documented as of this encounter
--- OUTSIDE RECORDS SUMMARY | 2024-05-03 04:15 | XMS_ITS | Encounter Summary ---
Author Organization [facility] Address [address] [facility] [place] [address] Care Team Providers Care Link Cutter Name Role Phone Nolberto Nicole MD Primary Care Provider [phone] Isidro Heredia MD Unavailable [phone] Reason for Visit * Reason Onset Date Comments Follow-up 04/15/2012 Encounter Details Date Type Department Care Team (Late st Contact Info) Description 04/15/2012 Telephone [facility] - Rheumatology [address] [place] [address] Isidro Heredia MD [address] [place] [address] Follow-up Social History Tobacco Use Types [...] * Telephone Encounter - Erika Julien - 04/15/2012 4:07 PM CST Informed pharmacy of note TRICAL INSPECTOR * Telephone Encounter - Rea Hagan MA - 04/15/2012 3:12 PM CST Please call pharm and let them know pt to take Prednisone bid. Thanks! TRICAL INSPECTOR * Telephone Encounter - ParrishYsameen - 04/15/2012 9:26 AM CST [facility] AT [facility] CALLED 2 DIFF INSTRUCTIONS ON HIS [place]ED[place] 1 ONCE DAILY THEN IT SAYS 1 IN AM 1 PM PLEASE CALL BACK TO CONFIRM [phone] TRICAL INSPECTOR documented in this encounter Plan of Treatment Upcoming Encounters Date Type Department Care Team (Late st Contact Info) Description 06/03/2024 1:00 PM ELECTRICAL INSPECTOR Appointment [facility] - Rheumatology [address] [place] [address] 06/03/2024 2:00 PM ELECTRICAL INSPECTOR Office Visit [facility] - Rheumatology [address] [place] [address] Gloria Smith MD [address] [place] [phone] documented as of this encounter Visit Diagnoses Not on filedocumented in this encounter Care Teams Link Cutter Relationship Specialty Start Date End Date Nolberto Nicole MD PCP - General 07/21/08 12/30/13 Isidro Heredia MD Rheumatology 02/09/11 documented as of this encounter
--- OUTSIDE RECORDS SUMMARY | 2024-05-03 04:15 | XMS_ITS | Encounter Summary ---
Author Organization [facility] Address [address] [facility] [place] [address] Care Team Providers Care Cherry Sorter Name Role Phone Nolberto Nicole MD Primary Care Provider [phone] Isidro Heredia MD Unavailable Reason for Visit * Reason Comments Follow-up ra Encounter Details Date Type Department Care Team (Late st Contact Info) Description 11/06/2011 5:30 PM CDT Office Visit [facility] - Rheumatology [address] [place] [phone] Isidro Heredia MD [address] [place] [id number] Rheumatoid arthritis (HCC) (Primary Dx); Triceps [...] Sign Reading Time Taken Comments Blood Pressure 128/84 11/06/2011 5:55 PM CDT Pulse 92 11/06/2011 5:55 PM CDT Temperature - - Respiratory Rate - - Oxygen Saturation - - Inhaled Oxygen Concentration - - Weight 111.7 kg (246 lb 3.2 oz) 11/06/2011 5:55 PM CDT Height - - Body Mass Index 35.33 05/15/2011 5:19 PM DEVICE SALES CONSULTANT documented in this encounter Progress Notes * Rea Hagan MA - 11/14/2011 1:47 PM CDTQuick Note: Sent lab letter to pt * Isidro Heredia MD - 11/12/2011 10:22 PM CDTQuick Note: mtx ok * Isidro Heredia MD - 11/12/2011 10:21 PM CDTQuick Note: mtx ok * Isidro Heredia MD - 11/06/2011 6:16 PM CDT Subjective: Chalino Deng 51 y.o. male is here for Chief Complaint Patient presents with ??? Follow-up ra Current Outpatient Prescriptions on File Prior to Visit Medication Sig Dispense Refill ??? metaxalone (SKELAXIN) 800 MG tablet Take 1 Tab by mouth 3 times daily. 60 Tab 0 ??? amoxicillin (AMOXIL) 500 MG capsule Take [...] PO) Take by mouth once daily. ??? Ccsgugxwnor-Rgdsimwen-Ftj C-Mn (GLUCOSAMINE CHONDR 1500 COMPLX PO) Take [...] ??? Osteopenia ??? ANEMIA ??? Subacromial bursitis History Smoking status ??? Never Smoker Smokeless tobacco ??? Not on file History Alcohol Use No History Drug Use Not on file on humira mtx naprosyn pred 15 mg /d for And percocet for chronic pain Pain Level: 11/06 knees righ shoulder hands Am stiffness 90 min Global 8/10 Fatigue yes Medication Side Effects n Review of Systems: General: No fever, chills, sweats, weight loss Eyes: No redness, discharge, blurred vision ENMT: No ear ache, loss of hearing, runny nose, sore gums, ulcers, sore thorat CV: No chest pain, palpitations, orthopnea, syncope Resp: No shortness of breath, cough, pleurisy, wheezing GI No nausea vomiting, abdominal pain, weight loss, anorexia, On meds for gerd, No melena, diarrhea No nocturia, dysuria, frequency, urgency, kidney stones. MS: NEURO: No headaches, seizures, dizziness, confusion, numbness, tingling HEME/LYMPH: No bruising or bleeding, swollen glands SKIN: No rash, itching, dry skin ENDO No Heat or cold intol, no hyper or hypoglycemia PSYCH: No memory loss, disorientation, confusion, mood changes, ALLERGY/IMMU No runny nose, tearing, sneezing, cough, eye irritation Systems reviewed genl heart lungs gi Objective: General Appearance Physical Exam:wd wn wm in nad a/o gait ok BP 128/84 Pulse 92 Wt 246 lb 3.2 oz (111.676 kg) Head: perrla, eyes no irritation, vision and hearing intact, no oral ulcers, oral mucosa and tonguenormal, throat clear Neck:supple, no bruits, adenopathy Chest: clear, no rales, rhonchi or wheezes Cor nsr w/o murmur S3 S4 Abdomen:soft, no masses or tenderness, no organomegaly Genitalia, Groin, Buttocks: Back: no abnormal curvature, tenderness, Extremities No edema cyanosis rash RUE: 8/TJ, 6/SJ, 0/muscle tenderness or weakness LUE: 8/TJ, 4/SJ, 0/muscle tenderness or weakness RLE: 1/TJ, 0/SJ, 0/muscle tenderness or weakness LLE: 1/TJ, 0/SJ, 0/muscle tenderness or weakness Assessment: Encounter Diagnoses Name Primary? Rheumatoid arthritis Yes ??? Triceps tendonitis tendonitis stable Poorly controlled ra and chronic pain same meds Plan: Plan Orders Placed This Encounter ??? SED RATE WESTERGREN ??? COMPREHENSIVE METABOLIC PANEL ??? C-REACTIVE PROTEIN ??? CBC W AUTO DIFFERENTIAL ??? oxycodone-acetaminophen (PERCOCET) 5-325 MG tablet Sig: Take 1 Tab by mouth every 6 hours as needed for Pain. Dispense: 120 Tab Refill: 0 ??? adalimumab (HUMIRA PEN) 40 MG/0.8ML injection Sig: Inject 0.8 mL subcutaneously every 14 days. Dispense: 3 Kit Refill: 3 Follow up in office in 4 weeks * Rea Hagan MA - 11/06/2011 5:54 PM CDT Chief Complaint Patient presents with ??? Follow-up ra BP 128/84 Pulse 92 Wt 246 lb 3.2 oz (111.676 kg) documented in this encounter Plan of Treatment Upcoming Encounters Date Type Department Care Team (Late st Contact Info) Description 06/03/2024 1:00 PM DEVICE SALES CONSULTANT Appointment [facility] - Rheumatology [address] [place] [phone] 06/03/2024 2:00 PM DEVICE SALES CONSULTANT Office Visit [facility] - Rheumatology [address] [place] [phone] Gloria Smith MD [address] [place] [phone] documented as of this encounter Procedures Procedure Name Priority Date/Time Associated Diagnosis Comments C-REACTIVE PROTEIN Routine 11/06/2011 6: 21 PM CDT Rheumatoid arthritis (HCC) ERYTHROCYTE SEDIMENTATION RATE Routine 11/06/2011 6:21 PM CDT Rheumatoid arthritis (HCC) CBC W AUTO DIFFERENTIAL Routine 11/06/2011 6:21 PM CDT Rheumatoid arthritis ([facility]) COMPREHENSIVE METABOLIC PANEL Routine 11/06/2011 6:21 PM CDT Rheumatoid arthritis (HCC) documented in this encounter Results * (ABNORMAL) CBC W AUTO DIFFERENTIAL (11/06/2011 6:21 PM CDT) WBC 10.6(H) 4.0 - 10.5 x10E3/uL [facility] ACCOUNT BILL RBC 4.17 4.14 - 5.80 x10E6/uL [facility] ACCOUNT BILL Hemoglobin 12.5(L) 12.6 - 17.7 g/dL [facility] ACCOUNT BILL Hematocrit 36.6(L) 37.5 - 51.0 % [facility] ACCOUNT BILL MCV 88 79 - 97 fL [facility] ACCOUNT BILL MCH 30.0 26.6 - 33.0 pg [facility] ACCOUNT BILL MCHC 34.2 31.5 - 35.7 g/dL [facility] ACCOUNT BILL RDW 16.5(H) 12.3 - 15.4 % [facility] ACCOUNT BILL Platelet Count 205 140 - 415 x10E3/uL [facility] ACCOUNT BILL Granulocytes % 54 40 - 74 % [facility] ACCOUNT BILL Lymphocytes % 38 14 - 46 % [facility] ACCOUNT BILL Monocytes % 5 4 - 13 % [facility] ACCOUNT BILL Eosinophils % 3 0 - 7 % [facility] ACCOUNT BILL Basophils % 0 0 - 3 % [facility] ACCOUNT BILL Immature Cells NOT NEEDED [facility] ACCOUNT BILL Comment:Ancillary determined the test is not needed Granulocytes Absolute 5.6 1.8 - 7.8 x10E3/uL [facility] ACCOUNT BILL Lymphocytes Absolute 4.0 0.7 - 4.5 x10E3/uL [facility] ACCOUNT BILL [...] Blood specimen (specimen) BLOOD SPECIMEN / Unknown 11/06/2011 6:21 PM CDT 11/06/2011 9:53 PM CDT Narrative Resulting Agency Comment [facility] [address] ??[facility] [phone] Isidro Heredia MD LAB - HEMATOLOGY OR DERABLES Performing Organization Address [facility] de Phone Number [facility] ACCOUNT BILL * C-REACTIVE PROTEIN (11/06/2011 6:21 PM CDT) Pathologist [facility] C-Reactive Protein 2.0 0.0 - 4.9 mg/L [facility] ACCOUNT BILL Blood specimen (specimen) BLOOD SPECIMEN / Unknown 11/06/2011 6:21 PM CDT 11/06/2011 9:53 PM CDT Narrative Resulting Agency Comment [facility] [place] [address] [facility] ??[facility] [phone] Isidro Heredia MD LAB - CHEMISTRY ORD ERABLES Performing Organization Address City/[facility]/ZIP Co de Phone Number [facility] ACCOUNT BILL * (ABNORMAL) COMPREHENSIVE METABOLIC PANEL (11/06/2011 6:21 PM CDT) Glucose 123(H) 65 - 99 mg/dL [facility] ACCOUNT BILL BUN 25(H) 6 - 24 mg/dL [facility] ACCOUNT BILL Creatinine 1.08 0.76 - 1.27 mg/dL [facility] ACCOUNT BILL eGFR by MDRD 80 >59 mL/min/1.7 3 [facility] ACCOUNT BILL eGFR by MDRD 93 >59 mL/min/1.7 3 [facility] ACCOUNT BILL BUN/Creatinine Ratio 23(H) 9 - 20 [facility] ACCOUNT BILL Sodium 141 134 - 144 mmol/L [facility] ACCOUNT BILL Potassium 4.0 3.5 - 5.2 mmol/L [...] mg/dL [facility] ACCOUNT BILL Alkaline Phosphatase 91 25 - 150 IU/L [facility] ACCOUNT BILL AST 24 0 - 40 IU/L [facility] ACCOUNT BILL ALT 25 0 - 55 IU/L [facility] ACCOUNT BILL Blood specimen (specimen) BLOOD SPECIMEN / Unknown 11/06/2011 6:21 PM CDT 11/06/2011 9:53 PM CDT Narrative Resulting Agency Comment [facility] [address] ??[facility] [phone] Isidro Heredia MD LAB - CHEMISTRY ORD ERABLES [facility] ACCOUNT BILL * (ABNORMAL) SED RATE WESTERGREN (11/06/2011 6:21 PM CDT) Erythrocyte Sedimentation Rate Westergren 24(H) 0 - 15 mm/hr [facility] ACCOUNT BILL Blood specimen (specimen) BLOOD SPECIMEN / Unknown 11/06/2011 6:21 PM CDT 11/06/2011 9:53 PM CDT Narrative Resulting Agency Comment [facility] [place] [address] [facility] ??[facility] [phone] Isidro Heredia MD LAB - HEMATOLOGY OR DERABLES [facility] ACCOUNT BILL documented in this encounter Visit Diagnoses Diagnosis Rheumatoid arthritis(714.0) ([facility])- Primary Rheumatoid arthritis Triceps tendonitis Other enthesopathy of elbow region documented in this encounter Care Teams Cherry Sorter Relationship Specialty Start Date End Date Nolberto Nicole MD PCP - General 07/21/08 12/30/13 Isidro Heredia MD Rheumatology 02/09/11 documented as of this encounter
--- OUTSIDE RECORDS SUMMARY | 2024-05-03 04:15 | XMS_ITS | Encounter Summary ---
Author Organization [facility] Address [address] [facility] [place] [address] Care Team Providers Care Thermo Cementing Folder Operator Name Role Phone Nolberto Nicole MD Primary Care Provider Reason for Visit * Reason Comments Pain Hand with swelling. (rt) Pain Knee rt. with some swelli ng Shoulder Pain rt Encounter Details Date Type Department Care Team (Late st Contact Info) Description 12/12/2010 5:15 PM CDT Office Visit [facility] - Rheumatology [address] [place] [phone] Isidro Heredia MD [address] [place] [phone] Rheumatoid arthritis (HCC) (Primary Dx); Triceps [...] Sign Reading Time Taken Comments Blood Pressure 122/90 12/12/2010 5:45 PM CDT Pulse 100 12/12/2010 5:45 PM CDT Temperature - - Respiratory Rate - - Oxygen Saturation - - Inhaled Oxygen Concentration - - Weight 111.1 kg (245 lb) 12/12/2010 5:45 PM CDT Height - - Body Mass Index 35.15 02/08/2009 5:43 PM CDT documented in this encounter Progress Notes * Isidro Heredia MD - 12/12/2010 6:13 PM CDT Subjective: Chalino Deng 50 y.o. male Chief Complaint Patient presents with ??? Pain Hand with swelling. (rt) ??? Pain Knee rt. with some swelling ??? Shoulder Pain rt Current Outpatient Prescriptions on File Prior to [...] Drug Use Not on file on mtx and humira End of the yr stress Pain Level: 12/07 Takes pred 15 to 20 mg/d Am stiffness 1 hr Global 11/06 Fatigue y Medication Side Effects n Review of Systems: GENERAL: No fever, chills, sweats, weight loss EARS: No wax or hearing loss. NOSE: No runny nose, bleeding, sinus drainage MOUTH: No gingivitis or stomatitis GI: No nausea vomiting, abdominal pain,diarrhea anorexia, gerd HEART: No chest pain, palpitations, orthopnea, syncope LUNGS: He had shortness of breath for a few days no, cough, pleurisy, wheezing : No nocturia, dysuria, frequency, urgency, kidney stones. SKIN: No rash, itching, dry skin MS: No muscle weakness, tenderness or joint pain NEURO: No headaches, seizures, dizziness, confusion, numbness, tingling HEME: No bruising or bleeding, swollen glands EXTREMITIES: No cyanosis, clubbing, edema OTHER: Objective: BP 122/90 Pulse 100 Wt 245 lb (111.131 kg) Tender Joint Count 26/28 Swollen Joint Count 0/28 Muscles: Weak or Tender 0 Rheumatoid Nodules: 0 Physical Exam: wd wn wf in nad HEENT perrla, hearing and vision [...] Plan: Plan Orders Placed This Encounter ??? COMPREHENSIVE METABOLIC PANEL ??? CBC W AUTO DIFFERENTIAL ??? C-REACTIVE PROTEIN ??? SED RATE WESTERGREN AUTO ??? oxycodone-acetaminophen (PERCOCET) 5-325 MG tablet Sig: Take 1 Tab by mouth every 6 hours as needed for Pain. Dispense: 120 Tab Refill: 0 Follow up in office in 4 weeks * Rea Hagan MA - 12/12/2010 5:47 PM CDT Chief Complaint Patient presents with ??? Pain Hand with swelling. (rt) ??? Pain Knee rt. with some swelling ??? Shoulder Pain rt BP 122/90 Pulse 100 Wt 245 lb (111.131 kg) documented in this encounter Plan of Treatment Upcoming Encounters Date Type Department Care Team (Late st Contact Info) Description 06/03/2024 1:00 PM MACHINED PARTS QUALITY INSPECTOR Appointment [facility] - Rheumatology [address] [place] [phone] 06/03/2024 2:00 PM MACHINED PARTS QUALITY INSPECTOR Office Visit [facility] - Rheumatology [address] [place] [phone] Gloria Smith MD [address] [place] [phone] documented as of this encounter Procedures Procedure Name Priority Date/Time Associated Diagnosis Comments C-REACTIVE PROTEIN Routine 12/12/2010 6: 06 PM CDT Rheumatoid arthritis (HCC) ERYTHROCYTE SEDIMENTATION RATE Routine 12/12/2010 6:06 PM CDT Rheumatoid arthritis (HCC) CBC W AUTO DIFFERENTIAL Routine 12/12/2010 6:06 PM CDT Rheumatoid arthritis (HCC) COMPREHENSIVE METABOLIC PANEL Routine 12/12/2010 6:06 PM CDT Rheumatoid arthritis (HCC) documented in this encounter Results * (ABNORMAL) SED RATE WESTERGREN AUTO (12/12/2010 6:06 PM CDT) Erythrocyte Sedimentation Rate Westergren 30(H) 0 - 23 mm/hr [facility] ACCOUNT BILL BLOOD SPECIMEN / Unknown 12/12/2010 6:06 PM CDT 12/12/2010 8:59 PM CDT Narrative Resulting Agency Comment [facility] [place] [address] [facility] ??[facility] [phone] Isidro Heredia MD LAB - HEMATOLOGY OR DERABLES [facility] ACCOUNT BILL * (ABNORMAL) C-REACTIVE PROTEIN (12/12/2010 6:06 PM CDT) C-Reactive Protein 5.2(H) 0.0 - 4.9 mg/L [facility] ACCOUNT BILL BLOOD SPECIMEN / Unknown 12/12/2010 6:06 PM CDT 12/12/2010 8:59 PM CDT Narrative Resulting Agency Comment [facility] [address] ??[facility] [phone] Isidro Heredia MD LAB - CHEMISTRY ORD ERABLES [facility] ACCOUNT BILL * (ABNORMAL) CBC W AUTO DIFFERENTIAL (12/12/2010 6:06 PM CDT) Pathologist [facility] WBC 9.7 4.0 - 10.5 x10E3/uL [facility] ACCOUNT BILL RBC 4.38 4.10 - 5.60 x10E6/uL [facility] ACCOUNT BILL Hemoglobin 12.8 12.5 - 17.0 g/dL [facility] ACCOUNT BILL Hematocrit 39.1 36.0 - 50.0 % [facility] ACCOUNT BILL MCV 89 80 - 98 fL [facility] ACCOUNT BILL MCH 29.2 27.0 - 34.0 pg [facility] ACCOUNT BILL MCHC 32.7 32.0 - 36.0 g/dL [facility] ACCOUNT BILL RDW 15.3(H) 11.7 - 15.0 % [facility] ACCOUNT BILL Platelet Count 241 140 - 415 x10E3/uL [facility] ACCOUNT BILL Granulocytes % 55 40 - 74 % [facility] ACCOUNT BILL Lymphocytes % 32 14 - 46 % [facility] Monocytes % 8 4 - 13 % [facility] ACCOUNT BILL Eosinophils % 4 0 - 7 % [facility] ACCOUNT BILL Basophils % 1 0 - 3 % [facility] ACCOUNT BILL Immature Cells NOT NEEDED [facility] ACCOUNT BILL Comment:Ancillary determined the test is not needed Granulocytes Absolute 5.4 1.8 - 7.8 x10E3/uL [facility] ACCOUNT BILL Lymphocytes Absolute 3.1 0.7 - 4.5 x10E3/uL [facility] ACCOUNT BILL Monocytes Absolute 0.8 0.1 - 1.0 x10E3/uL [facility] ACCOUNT BILL Eosinophils Absolute 0.4 0.0 - 0.4 x10E3/uL [facility] ACCOUNT BILL [...] is not needed BLOOD SPECIMEN / Unknown 12/12/2010 6:06 PM CDT 12/12/2010 8:59 PM CDT Narrative Resulting Agency Comment [facility] [address] ??[facility] [phone] Isidro Heredia MD LAB - HEMATOLOGY OR DERABLES [facility] ACCOUNT BILL * (ABNORMAL) COMPREHENSIVE METABOLIC PANEL (12/12/2010 6:06 PM CDT) Pathologist [facility] Glucose 78 65 - 99 mg/dL [facility] ACCOUNT BILL [...] disease. Calculated using CKD-EPI formula. BUN/Creatinine Ratio 21(H) 9 - 20 [facility] ACCOUNT BILL Sodium 138 135 - 145 mmol/L [facility] ACCOUNT BILL Potassium 4.0 3.5 - 5.2 mmol/L [facility] ACCOUNT BILL Chloride 100 97 - 108 mmol/L [facility] ACCOUNT BILL [...] 1.2 mg/dL [facility] ACCOUNT BILL Alkaline Phosphatase 94 25 - 150 IU/L [facility] ACCOUNT BILL AST 25 0 - 40 IU/L [facility] ACCOUNT BILL ALT 23 0 - 55 IU/L [facility] ACCOUNT BILL BLOOD SPECIMEN / Unknown 12/12/2010 6:06 PM CDT 12/12/2010 8:59 PM CDT Narrative Resulting Agency Comment [facility] [address] ??[facility] [phone] Isidro Heredia MD LAB - CHEMISTRY ORD ERABLES [facility] ACCOUNT BILL documented in this encounter Visit Diagnoses Diagnosis Rheumatoid arthritis(714.0) (HCC)- Primary Rheumatoid arthritis Triceps tendonitis Other enthesopathy of elbow region documented in this encounter Care Teams Thermo Cementing Folder Operator Relationship Specialty Start Date End Date Nolberto Nicole MD PCP - General 07/21/08 12/30/13 documented as of this encounter
--- OUTSIDE RECORDS SUMMARY | 2024-05-03 04:15 | XMS_ITS | Encounter Summary ---
Author Organization [facility] Address [address] [place] [address] Care Team Providers Care Hat Block Maker Name Role Phone Nolberto Nicole MD Primary Care Provider Isidro Heredia MD Unavailable Reason for Visit * Reason Comments Rheumatoid Arthritis new sx: racey heart , sob few times since the last visit. last episode on 03/31/12 Upper Extremity Problem hands,shoulder Lower Extremity Problem ankles, knees, h ips Swelling Hand obdulia * Evaluate & Treat (Routine) - Closed Specialty Diagnoses / Procedures Referred By Lawrence shah Referred To Contact Diagnoses Rheumatoid arthritis(714.0) ([facility]) Procedures [place] OFFICE VISIT DURING HOURS Nolberto Nicole MD [address] [place] [address] Isidro Heredia MD [address] [place] [address] Referral ID Status Reason Start Date Expiration Date Visits Re quested Visits Authorized [id number] Closed 02/20/2012 08/18/2012 1 5 Encounter Details Date Type Department Care Team (Late st Contact Info) Description 04/08/2012 5:00 PM SPEECH PATHOLOGY ASSISTANT Office Visit [facility] - Rheumatology [address] [place] [phone] Isidro Heredia MD [address] [place] [address] Rheumatoid arthritis (HCC) (Primary Dx); Chronic pain syndrome; Palpitations Social History Tobacco Use Types Packs/Day Years [...] Sign Reading Time Taken Comments Blood Pressure 110/80 04/08/2012 5:48 PM SPEECH PATHOLOGY ASSISTANT Pulse 104 04/08/2012 5:48 PM SPEECH PATHOLOGY ASSISTANT Temperature - - Respiratory Rate - - Oxygen Saturation - - Inhaled Oxygen Concentration - - Weight 114.5 kg (252 lb 6.4 oz) 04/08/2012 5:48 PM SPEECH PATHOLOGY ASSISTANT Height - - Body Mass Index 36.22 05/15/2011 5:19 PM SPEECH PATHOLOGY ASSISTANT documented in this encounter Progress Notes * Rea Hagan MA - 04/17/2012 2:11 PM CSTQuick Note: Sent lab letter to pt CH PATHOLOGY ASSISTANT * Isidro Heredia MD - 04/14/2012 8:28 PM CSTQuick Note: mtx ok CH PATHOLOGY ASSISTANT * Isidro Heredia MD - 04/08/2012 6:04 PM CST Subjective: Chalino Deng 51 y.o. male is here for Chief Complaint Patient presents with ??? Rheumatoid Arthritis new sx: racey heart, sob few times since the last visit. last episode on 03/31/12 ??? Upper Extremity Problem hands,shoulder ??? Lower Extremity Problem ankles, knees, hips ??? Swelling Hand obdulia On mtx humira pred 20mg/d for ra and percocet for chronic pain He has had palpitations and sob Waiting to hear from rituxan HPI: Pain Level: 8/10 hands wrist knees left shoulder Am stiffness 2 hrs Global 8/10 Fatigue yes Medication Side Effects no Current Outpatient Prescriptions on File Prior to Visit Medication Sig Dispense Refill ??? oxycodone-acetaminophen (PERCOCET) 5-325 MG tablet Take 1 Tab by mouth every 6 hours as needed for Pain. 120 Tab 0 ??? metaxalone (SKELAXIN) 800 MG tablet Take [...] PO) Take by mouth once daily. ??? Cexhfqtukjq-Sdtehxgso-Jyl C-Mn (GLUCOSAMINE CHONDR 1500 COMPLX PO) Take [...] nose, sore gums, ulcers, sore throat CV: hehad chest pain, palpitations x 3, noorthopnea, syncope Resp: No shortness of breath, cough, [...] Exam: wd wn wm in nad BP 110/80 Pulse 104 Wt 252 lb 6.4 oz (114.488 kg) Head: perrla, eyes no irritation, vision [...] 8/SJ, 0/muscle tenderness or weakness LUE: 13/TJ, 6/SJ, 0/muscle tenderness or weakness RLE: 1/TJ, 0/SJ, 0/muscle tenderness or weakness knees LLE: 1/TJ, 1/SJ, 0/muscle tenderness or weakness Assessment: Encounter Diagnoses Name Primary? Rheumatoid arthritis Yes ??? Chronic pain syndrome ??? Palpitations see cardiol for heart Poorly controlled ra And chronic p[ain Inc humira to q week Find out about the rituxan Plan: Plan Orders Placed This Encounter ??? CBC W AUTO DIFFERENTIAL ??? COMPREHENSIVE METABOLIC PANEL ??? C-REACTIVE PROTEIN ??? SED RATE WESTERGREN ??? predniSONE (DELTASONE) 10 MG tablet Sig: Take 1 Tab by mouth once daily. In the am and 1 tab in the pm Dispense: 60 Tab Refill: 6 Follow up in office in 4 weeks CH PATHOLOGY ASSISTANT * Rea Hagan MA - 04/08/2012 5:50 PM CST Chief Complaint Patient presents with ??? Rheumatoid Arthritis new sx: racey heart, sob few times since the last visit. last episode on 03/31/12 ??? Upper Extremity Problem hands,shoulder ??? Lower Extremity Problem ankles, knees, hips ??? Swelling Hand obdulia BP 110/80 Pulse 104 Wt 252 lb 6.4 oz (114.488 kg) CH PATHOLOGY ASSISTANT documented in this encounter Plan of Treatment Upcoming Encounters Date Type Department Care Team (Late st Contact Info) Description 06/03/2024 1:00 PM SPEECH PATHOLOGY ASSISTANT Appointment [facility] - Rheumatology [address] [place] [address] 06/03/2024 2:00 PM SPEECH PATHOLOGY ASSISTANT Office Visit [facility] - Rheumatology [address] [place] [address] [phone] Gloria Smith MD [address] [place] [phone] documented as of this encounter Procedures Procedure Name Priority Date/Time Associated Diagnosis Comments C-REACTIVE PROTEIN Routine 04/08/2012 6: 32 PM SPEECH PATHOLOGY ASSISTANT Rheumatoid arthritis (HCC) ERYTHROCYTE SEDIMENTATION RATE Routine 04/08/2012 6:32 PM SPEECH PATHOLOGY ASSISTANT Rheumatoid arthritis (HCC) CBC W AUTO DIFFERENTIAL Routine 04/08/2012 6:32 PM SPEECH PATHOLOGY ASSISTANT Rheumatoid arthritis (HCC) COMPREHENSIVE METABOLIC PANEL Routine 04/08/2012 6:32 PM SPEECH PATHOLOGY ASSISTANT Rheumatoid arthritis (HCC) documented in this encounter Results * SED RATE WESTERGREN (04/08/2012 6:32 PM SPEECH PATHOLOGY ASSISTANT) Erythrocyte Sedimentation Rate Westergren 12 0 - 15 mm/hr [facility] ACCOUNT BILL Blood specimen (specimen) BLOOD SPECIMEN / Unknown 04/08/2012 6:32 PM SPEECH PATHOLOGY ASSISTANT 04/08/2012 9:50 PM SPEECH PATHOLOGY ASSISTANT Narrative Resulting Agency Comment [facility] ??[facility] [phone] Isidro Heredia MD LAB - HEMATOLOGY OR DERABLES Performing Organization Address City/[facility] Co de Phone Number [facility] ACCOUNT BILL * (ABNORMAL) C-REACTIVE PROTEIN (04/08/2012 6:32 PM SPEECH PATHOLOGY ASSISTANT) C-Reactive Protein 8.6(H) 0.0 - 4.9 mg/L [facility] ACCOUNT BILL Blood specimen (specimen) BLOOD SPECIMEN / Unknown 04/08/2012 6:32 PM SPEECH PATHOLOGY ASSISTANT 04/08/2012 9:50 PM SPEECH PATHOLOGY ASSISTANT Narrative Resulting Agency Comment [facility] ??[facility] [phone] Isidro Heredia MD LAB - CHEMISTRY ORD ERABLES Performing Organization Address [facility] Co de Phone Number [facility] ACCOUNT BILL * (ABNORMAL) COMPREHENSIVE METABOLIC PANEL (04/08/2012 6:32 PM SPEECH PATHOLOGY ASSISTANT) Glucose 106(H) 65 - 99 mg/dL [facility] ACCOUNT BILL BUN 19 6 - 24 mg/dL [facility] ACCOUNT BILL Creatinine 1.12 0.76 - 1.27 mg/dL [facility] ACCOUNT BILL eGFR by MDRD 77 >59 mL/min/1.7 3 [facility] ACCOUNT BILL eGFR by MDRD 89 >59 mL/min/1.7 3 [facility] ACCOUNT BILL BUN/Creatinine Ratio 17 9 - 20 [facility] ACCOUNT BILL Sodium [...] 1.2 mg/dL [facility] ACCOUNT BILL Alkaline Phosphatase 98 25 - 150 IU/L [facility] ACCOUNT BILL AST 24 0 - 40 IU/L [facility] ACCOUNT BILL ALT 25 0 - 44 IU/L [facility] ACCOUNT BILL Blood specimen (specimen) BLOOD SPECIMEN / Unknown 04/08/2012 6:32 PM SPEECH PATHOLOGY ASSISTANT 04/08/2012 9:50 PM SPEECH PATHOLOGY ASSISTANT Narrative Resulting Agency Comment [facility] [address] ??[facility] [phone] Isidro Heredia MD LAB - CHEMISTRY ORD ERABLES [facility] ACCOUNT BILL * CBC W AUTO DIFFERENTIAL (04/08/2012 6:32 PM SPEECH PATHOLOGY ASSISTANT) WBC 8.1 4.0 - 10.5 x10E3/uL [facility] ACCOUNT BILL RBC 4.14 4.14 - 5.80 x10E6/uL [facility] ACCOUNT BILL Hemoglobin 12.7 12.6 - 17.7 g/dL [facility] ACCOUNT BILL Hematocrit 37.6 37.5 - 51.0 % [facility] ACCOUNT BILL MCV 91 79 - 97 fL [facility] ACCOUNT BILL MCH 30.7 26.6 - 33.0 pg [facility] ACCOUNT BILL MCHC 33.8 31.5 - 35.7 g/dL [facility] ACCOUNT BILL RDW 14.7 12.3 - 15.4 % [facility] ACCOUNT BILL Platelet Count 245 140 - 415 x10E3/uL [facility] ACCOUNT BILL Granulocytes % 48 40 - 74 % [facility] ACCOUNT BILL Lymphocytes % 40 14 - 46 % [facility] ACCOUNT [...] 7.8 x10E3/uL [facility] ACCOUNT BILL Lymphocytes Absolute 3.3 0.7 - 4.5 x10E3/uL [facility] ACCOUNT BILL [...] Blood specimen (specimen) BLOOD SPECIMEN / Unknown 04/08/2012 6:32 PM SPEECH PATHOLOGY ASSISTANT 04/08/2012 9:50 PM SPEECH PATHOLOGY ASSISTANT Narrative Resulting Agency Comment [facility] [address] ??[facility] [phone] Isidro Heredia MD LAB - HEMATOLOGY OR DERABLES [facility] ACCOUNT BILL documented in this encounter Visit Diagnoses Diagnosis Rheumatoid arthritis(714.0) (HCC)- Primary Rheumatoid arthritis Chronic pain syndrome Palpitations documented in this encounter Care Teams Hat Block Maker Relationship Specialty Start Date End Date Nolberto Nicole MD PCP - General 07/21/08 12/30/13 Isidro Heredia MD Rheumatology 02/09/11 documented as of this encounter
--- OUTSIDE RECORDS SUMMARY | 2024-05-03 04:15 | XMS_ITS | Encounter Summary ---
Author Organization [facility] Address [address] [place] [address] Care Team Providers Care Distribution Sales Manager Name Role Phone Nolberto Nicole MD Primary Care Provider [phone] Isidro Heredia MD Unavailable [phone] Reason for Visit * Reason Onset Date Comments MEDICATION REFILL 06/09/2011 Encounter Details Date Type Department Care Team (Late st Contact Info) Description 06/09/2011 Refill [facility] Medical [facility] - Rheumatology [address] [place] [address] Isidro Heredia MD [address] [place] [id number] MEDICATION REFILL Social History Tobacco Use [...] Telephone Encounter - Rea Hagan MA - 06/09/2011 4:22 PM CST Instruct pt not to take Humira injection until pneumonia is resolved. K RAILROAD AND BUS MOTOR MECHANIC * Telephone Encounter - Miranda Starr - 06/09/2011 1:38 PM CST Called pt to let him know he will need new referral for 06/12/11 visit. He said he is in the hospital for pneumonia and wants refill on Humira. K RAILROAD AND BUS MOTOR MECHANIC documented in this encounter Plan of Treatment Upcoming Encounters Date Type Department Care Team (Late st Contact Info) Description 06/03/2024 1:00 PM TRUCK RAILROAD AND BUS MOTOR MECHANIC Appointment [facility] - Rheumatology [address] [place] [phone] 06/03/2024 2:00 PM TRUCK RAILROAD AND BUS MOTOR MECHANIC Office Visit [facility] - Rheumatology [address] [place] [address] Gloria Smith MD [address] [place] [phone] documented as of this encounter Visit Diagnoses Not on filedocumented in this encounter Care Teams Distribution Sales Manager Relationship Specialty Start Date End Date Nolberto Nicole MD PCP - General 07/21/08 12/30/13 Isidro Heredia MD Rheumatology 02/09/11 documented as of this encounter
--- OUTSIDE RECORDS SUMMARY | 2024-05-03 04:15 | XMS_ITS | Encounter Summary ---
Author Organization [facility] Address [address] [facility] [place] [address] Care Team Providers Care Set Illustrator Name Role Phone Nolberto Nicole MD Primary Care Provider [phone] Isidro Heredia MD Unavailable Reason for Visit * Reason Comments Rheumatoid Arthritis Pain scale: [address] iffness: all day clammy today Headache x 1 month with dizz iness in the last few days if he does things quickly Pain Hand Pain Knee obdulia. with swelling a t the end of the day Pain Ankle rt Shoulder Pain obdulia. more soreness * Evaluate & Treat (Routine) - Closed Specialty Diagnoses / Procedures Referred By Lawrence shah Referred To Contact Diagnoses Rheumatoid arthritis(714.0) ([facility]) Procedures [place] OFFICE VISIT DURING HOURS Nolberto Nicole MD [address] [place] [address] Isidro Heredia MD [address] [place] [address] Referral ID Status Reason Start Date Expiration Date Visits Re quested Visits Authorized [id number] Closed 02/20/2012 08/18/2012 1 5 Encounter Details Date Type Department Care Team (Late st Contact Info) Description 06/24/2012 5:00 PM DEWATERING FILTERING SUPERVISOR Office Visit [facility] - Rheumatology [address] [place] [address] Isidro Heredia MD [address] [place] [address] ZOHAIB ESPINO [id number] Rheumatoid arthritis (HCC) (Primary Dx); Headache Social History Tobacco Use Types Packs/Day Years [...] Sign Reading Time Taken Comments Blood Pressure 110/86 06/24/2012 5:31 PM DEWATERING FILTERING SUPERVISOR Pulse 80 06/24/2012 5:31 PM DEWATERING FILTERING SUPERVISOR Temperature 36.8 ??C (98.2 ??F) 06/24/2012 5:31 PM CS T Respiratory Rate - - Oxygen Saturation - - Inhaled Oxygen Concentration - - Weight 111.6 kg (246 lb) 06/24/2012 5:31 PM DEWATERING FILTERING SUPERVISOR Height - - Body Mass Index 35.3 05/15/2011 5:19 PM DEWATERING FILTERING SUPERVISOR documented in this encounter Progress Notes * Yamileth Rodríguez MA - 07/01/2012 11:45 AM CSTQuick Note: Letter mailed to patient regarding alb results. TERING FILTERING SUPERVISOR * Isidro Heredia MD - 06/30/2012 5:16 PM CSTQuick Note: mtx ok TERING FILTERING SUPERVISOR * Isidro Heredia MD - 06/30/2012 5:15 PM CSTQuick Note: mtx ok TERING FILTERING SUPERVISOR * Isidro Heredia MD - 06/24/2012 5:55 PM CST Subjective: Chalino Deng 51 y.o. male is here for Chief Complaint Patient presents with ??? Rheumatoid Arthritis Pain scale: 8 am stiffness: all day clammy today ??? Headache x 1 month with dizziness in the last few days if he does things quickly ??? Pain Hand ??? Pain Knee obdulia. with swelling at the end of the day ??? Pain Ankle rt ??? Shoulder Pain obdulia. more soreness HPI: On mtx humira and pred20 mg/d and naprosyn for ra And percocet for chronic pain Shafer for 4 weeks more on the right percocet no help no blurred vision dizzyness Weakness falls Good results with steroid shot left shoulder Pain Level: 9/10 hands shafer Am stiffness all day Global 10 Fatigue yes Medication Side Effects no Current Outpatient Prescriptions on File Prior to Visit Medication Sig Dispense Refill ??? predniSONE (DELTASONE) 10 MG tablet Take 1 Tab by mouth 2 times daily. 60 Tab 6 ??? metaxalone (SKELAXIN) 800 MG tablet Take [...] PO) Take by mouth once daily. ??? Ullprghatsf-Ybijqdqil-Fww C-Mn (GLUCOSAMINE CHONDR 1500 COMPLX PO) Take [...] runny nose, sore gums, ulcers, sore throat genl heart lungs CV: No chest pain, palpitations, orthopnea, syncope Resp: No shortness of breath, cough, pleurisy, wheezing GI No nausea vomiting, abdominal pain, weight loss, anorexia, gerd, melena, diarrhea No nocturia, dysuria, frequency, urgency, kidney stones. MS: NEURO: No , seizures, dizziness, confusion, numbness, tingling HEME/LYMPH: No bruising or bleeding, swollen glands SKIN: No rash, itching, dry skin ENDO No Heat or cold intol, no hyper or hypoglycemia PSYCH: No memory loss, disorientation, confusion, mood changes, ALLERGY/IMMU No runny nose, tearing, sneezing, cough, eye irritation Systems reviewed genl heart lungs Objective: General Appearance Physical Exam: wd wnwm in nad a/o gait ok BP 110/86 Pulse 80 Temp 98.2 ??F Wt 246 lb (111.585 kg) Head: perrla, eyes no irritation, vision [...] LLE: 1/TJ, 1/SJ, 0/muscle tenderness or weakness knees Assessment: Encounter Diagnoses Name Primary? Rheumatoid arthritis Yes ??? Headache poorly controlled ra trying for rituxan Mri brain for shafer Plan: Plan Orders Placed This Encounter ??? CBC W AUTO DIFFERENTIAL ??? COMPREHENSIVE METABOLIC PANEL ??? C-REACTIVE PROTEIN ??? SED RATE WESTERGREN ??? oxycodone-acetaminophen (PERCOCET) 5-325 MG tablet Sig: Take 1 Tab by mouth every 6 hours as needed for Pain. Dispense: 120 Tab Refill: 0 Follow up in office in 4 weeks TERING FILTERING SUPERVISOR * Rea Hagan MA - 06/24/2012 5:33 PM CST Chief Complaint Patient presents with ??? Rheumatoid Arthritis Pain scale: 8 am stiffness: all day clammy today ??? Headache x 1 month with dizziness in the last few days if he does things quickly ??? Pain Hand ??? Pain Knee obdulia. with swelling at the end of the day ??? Pain Ankle rt ??? Shoulder Pain obdulia. more soreness BP 110/86 Pulse 80 Temp 98.2 ??F Wt 246 lb (111.585 kg) TERING FILTERING SUPERVISOR documented in this encounter Plan of Treatment Upcoming Encounters Date Type Department Care Team (Late st Contact Info) Description 06/03/2024 1:00 PM DEWATERING FILTERING SUPERVISOR Appointment [facility] - Rheumatology [address] [place] [address] 06/03/2024 2:00 PM DEWATERING FILTERING SUPERVISOR Office Visit [facility] - Rheumatology [address] [place] [address] Gloria Smith MD [address] [place] [phone] documented as of this encounter Procedures Procedure Name Priority Date/Time Associated Diagnosis Comments C-REACTIVE PROTEIN Routine 06/24/2012 6: 12 PM DEWATERING FILTERING SUPERVISOR Rheumatoid arthritis (HCC) ERYTHROCYTE SEDIMENTATION RATE Routine 06/24/2012 6:12 PM DEWATERING FILTERING SUPERVISOR Rheumatoid arthritis (HCC) CBC W AUTO DIFFERENTIAL Routine 06/24/2012 6:12 PM DEWATERING FILTERING SUPERVISOR Rheumatoid arthritis (HCC) COMPREHENSIVE METABOLIC PANEL Routine 06/24/2012 6:12 PM DEWATERING FILTERING SUPERVISOR Rheumatoid arthritis (HCC) documented in this encounter Results * (ABNORMAL) SED RATE WESTERGREN (06/24/2012 6:12 PM DEWATERING FILTERING SUPERVISOR) Erythrocyte Sedimentation Rate Westergren 37(H) 0 - 15 mm/hr [facility] ACCOUNT BILL Blood specimen (specimen) BLOOD SPECIMEN / Unknown 06/24/2012 6:12 PM DEWATERING FILTERING SUPERVISOR 06/24/2012 7:33 PM DEWATERING FILTERING SUPERVISOR Narrative Resulting Agency Comment [facility] [employer] ??[facility] [phone] Isidro Heredia MD LAB - HEMATOLOGY OR DERABLES [facility] ACCOUNT BILL * C-REACTIVE PROTEIN (06/24/2012 6:12 PM DEWATERING FILTERING SUPERVISOR) C-Reactive Protein 4.2 0.0 - 4.9 mg/L [facility] ACCOUNT BILL Blood specimen (specimen) BLOOD SPECIMEN / Unknown 06/24/2012 6:12 PM DEWATERING FILTERING SUPERVISOR 06/24/2012 7:33 PM DEWATERING FILTERING SUPERVISOR Narrative Resulting Agency Comment [facility] [address] [facility] ??[facility] [phone] Isidro Heredia MD LAB - CHEMISTRY ORD ERABLES [facility] ACCOUNT BILL * (ABNORMAL) COMPREHENSIVE METABOLIC PANEL (06/24/2012 6:12 PM DEWATERING FILTERING SUPERVISOR) Glucose 101(H) 65 - 99 mg/dL [facility] ACCOUNT BILL BUN 18 6 - 24 mg/dL [facility] ACCOUNT BILL Creatinine 0.99 0.76 - 1.27 mg/dL [facility] ACCOUNT BILL eGFR by MDRD 89 >59 mL/min/1.7 3 [facility] ACCOUNT BILL eGFR by MDRD 103 >59 mL/min/1.7 3 [facility] ACCOUNT BILL BUN/Creatinine Ratio 18 9 - 20 [facility] ACCOUNT BILL Sodium 139 134 - 144 mmol/L [facility] ACCOUNT BILL Potassium 4.2 3.5 - 5.2 mmol/L [facility] ACCOUNT BILL Chloride 103 97 - 108 mmol/L [facility] ACCOUNT BILL CO2 20 20 - 32 mmol/L [facility] ACCOUNT BILL Calcium 9.4 8.7 - 10.2 mg/dL [facility] ACCOUNT BILL Protein Total 7.6 6.0 - 8.5 g/dL [facility] ACCOUNT BILL Albumin 4.4 3.5 - 5.5 g/dL [facility] ACCOUNT BILL Globulin Total 3.2 1.5 - 4.5 g/dL [facility] ACCOUNT BILL Albumin/Globulin Ratio 1.4 1.1 - 2.5 [facility] ACCOUNT BILL Bilirubin Total 0.4 0.0 - 1.2 mg/dL [facility] ACCOUNT BILL Alkaline Phosphatase 96 25 - 150 IU/L [facility] ACCOUNT BILL AST 17 0 - 40 IU/L [facility] ACCOUNT BILL ALT 20 0 - 44 IU/L [facility] ACCOUNT BILL Blood specimen (specimen) BLOOD SPECIMEN / Unknown 06/24/2012 6:12 PM DEWATERING FILTERING SUPERVISOR 06/24/2012 7:33 PM DEWATERING FILTERING SUPERVISOR Narrative Resulting Agency Comment [facility] [address] ??[facility] [phone] Isidro Heredia MD LAB - CHEMISTRY ORD ERABLES [facility] ACCOUNT BILL * (ABNORMAL) CBC W AUTO DIFFERENTIAL (06/24/2012 6:12 PM DEWATERING FILTERING SUPERVISOR) WBC 10.9(H) 4.0 - 10.5 x10E3/uL [facility] ACCOUNT BILL RBC 4.80 4.14 - 5.80 x10E6/uL [facility] ACCOUNT BILL Hemoglobin 13.9 12.6 - 17.7 g/dL [facility] ACCOUNT BILL Hematocrit 40.7 37.5 - 51.0 % [facility] ACCOUNT BILL MCV 85 79 - 97 fL [facility] ACCOUNT BILL MCH 29.0 26.6 - 33.0 pg [facility] ACCOUNT BILL MCHC 34.2 31.5 - 35.7 g/dL [facility] ACCOUNT BILL RDW 14.6 12.3 - 15.4 % [facility] ACCOUNT BILL Platelet Count 234 140 - 415 x10E3/uL [facility] ACCOUNT BILL [...] the test is not needed Granulocytes Absolute 6.6 1.8 - 7.8 x10E3/uL [facility] ACCOUNT BILL [...] Blood specimen (specimen) BLOOD SPECIMEN / Unknown 06/24/2012 6:12 PM DEWATERING FILTERING SUPERVISOR 06/24/2012 7:33 PM DEWATERING FILTERING SUPERVISOR Narrative Resulting Agency Comment [facility] [address] ??[facility] [phone] Isidro Heredia MD LAB - HEMATOLOGY OR DERABLES [facility] ACCOUNT BILL documented in this encounter Visit Diagnoses Diagnosis Rheumatoid arthritis(714.0) (HCC)- Primary Rheumatoid arthritis Headache(784.0) Headache documented in this encounter Care Teams Set Illustrator Relationship Specialty Start Date End Date Nolberto Nicole MD PCP - General 3/24/09 9/2/14 Isidro Heredia MD Rheumatology 02/09/11 documented as of this encounter
--- OUTSIDE RECORDS SUMMARY | 2024-05-03 04:15 | XMS_ITS | Encounter Summary ---
Author Organization [facility] Address [address] [facility] [place] [address] Care Team Providers Care Crew Person Name Role Phone Nolberto Nicole MD Primary Care Provider [phone] Isidro Heredia MD Unavailable Reason for Visit * Reason Comments Follow-up ra Shoulder Pain left * Evaluate & Treat (Routine) - Closed Specialty Diagnoses / Procedures Referred By Lawrence t Referred To Contact Diagnoses Rheumatoid arthritis(714.0) (HCC) Procedures PA OFFICE VISIT DURING HOURS Nolberto Nicole MD 0 [place] [address] Isidro Heredia MD [address] [place] [address] Referral ID Status Reason Start Date Expiration Date Visits Re quested Visits Authorized [id number] Closed 08/03/2011 01/30/2012 1 12 Encounter Details Date Type Department Care Team (Late st Contact Info) Description 12/11/2011 5:30 PM CDT Office Visit [facility] - Rheumatology [address] [place] [address] Isidro Heredia MD [address] [place] [address] Rheumatoid arthritis (HCC) (Primary Dx); [...] Sign Reading Time Taken Comments Blood Pressure 120/98 12/11/2011 6:02 PM CDT Pulse 104 12/11/2011 6:02 PM CDT Temperature - - Respiratory Rate - - Oxygen Saturation - - Inhaled Oxygen Concentration - - Weight 111 kg (244 lb 12.8 oz) 12/11/2011 6:02 P M CDT Height - - Body Mass Index 35.13 05/15/2011 5:19 PM CANTEEN OPERATOR documented in this encounter Progress Notes * Rea Hagan MA - 12/28/2011 11:03 AM CDTQuick Note: Sent lab letter to pt * Isidro Heredia MD - 12/24/2011 4:22 PM CDTQuick Note: mtx ok * Isidro Heredia MD - 12/11/2011 6:07 PM CDT Subjective: Chalino Deng 51 y.o. male is here for Chief Complaint Patient presents with ??? Follow-up ra ??? Shoulder Pain left Current Outpatient Prescriptions on File Prior to Visit Medication Sig Dispense Refill ??? adalimumab (HUMIRA PEN) 40 MG/0.8ML injection Inject 0.8 mL subcutaneously every 14 days. 3 Kit3 ??? metaxalone (SKELAXIN) 800 MG tablet Take [...] PO) Take by mouth once daily. ??? Bxuegxhbpsa-Zpwpdbomy-Rvw C-Mn (GLUCOSAMINE CHONDR 1500 COMPLX PO) Take [...] Not on file on humira mtx naprosyn for ra and percocet for chronic pain Pain Level: 9/10 left shoulder knees hands Am stiffness 1 hr Global 8/10 Fatigue yes Medication Side Effects no Review [...] Appearance Physical Exam:wd wn wm in nad A/o gait ok BP 120/98 Pulse 104 Wt 244 lb 12.8 oz (111.041 kg) Head: perrla, eyes no irritation, vision [...] RUE: 8/TJ, 6/SJ, 0/muscle tenderness or weakness tender left triceps LUE: 8/TJ, 4/SJ, 0/muscle tenderness or weakness RLE: 1/TJ, 0/SJ, 0/muscle tenderness or weaknessknees LLE: 1/TJ, 0/SJ, 0/muscle tenderness or weakness Assessment: Encounter Diagnoses Name Primary? Rheumatoid arthritis ??? Triceps tendonitis poorly controlled ra Chronic pain and tendonitis Same meds and steroid shot Plan: Plan Orders Placed This Encounter ??? TRIAMCINOLON ACETONID NOS 10 MG INJ ??? CBC W AUTO DIFFERENTIAL ??? COMPREHENSIVE METABOLIC PANEL ??? C-REACTIVE PROTEIN ??? SED RATE WESTERGREN ??? PA DRAIN/INJECT LARGE JOINT/BURSA ??? oxycodone-acetaminophen (PERCOCET) 5-325 MG tablet Sig: Take 1 Tab by mouth every 6 hours as needed for Pain. Dispense: 120 Tab Refill: 0 ??? triamcinolone acetonide (KENALOG) injection Si mL by Intra-articular route once for 1 dose. Dispense: 2 mL Refill: 0 Under sterile condition, 2 cc's of tac were injected in the left triceps tendon. Patient tolerated procedure well without complications. Follow up in office in 4 week * Rea Hagan MA - 12/11/2011 6:04 PM CDT Chief Complaint Patient presents with ??? Follow-up ra ??? Shoulder Pain left BP 120/98 Pulse 104 Wt 244 lb 12.8 oz (111.041 kg) documented in this encounter Plan of Treatment Upcoming Encounters Date Type Department Care Team (Late st Contact Info) Description 06/03/2024 1:00 PM CANTEEN OPERATOR Appointment [facility] - Rheumatology [address] [place] [address] 06/03/2024 2:00 PM CANTEEN OPERATOR Office Visit [facility] - Rheumatology [address] [place] [address] Gloria Smith MD [address] [place] [phone] documented as of this encounter Procedures Procedure Name Priority Date/Time Associated Diagnosis Comments C-REACTIVE PROTEIN Routine 12/11/2011 6: 20 PM CDT Rheumatoid arthritis (HCC) ERYTHROCYTE SEDIMENTATION RATE Routine 12/11/2011 6:20 PM CDT Rheumatoid arthritis (HCC) CBC W AUTO DIFFERENTIAL Routine 12/11/2011 6:20 PM CDT Rheumatoid arthritis ([facility]) COMPREHENSIVE METABOLIC PANEL Routine 12/11/2011 6:20 PM CDT Rheumatoid arthritis (HCC) documented in this encounter Results * (ABNORMAL) SED RATE WESTERGREN (12/11/2011 6:20 PM CDT) Erythrocyte Sedimentation Rate Westergren 27(H) 0 - 15 mm/hr [facility] ACCOUNT BILL Blood specimen (specimen) BLOOD SPECIMEN / Unknown 12/11/2011 6:20 PM CDT 12/12/2011 4:32 AM CDT Narrative Resulting Agency Comment [facility] ??[facility] [phone] Isidro Heredia MD LAB - HEMATOLOGY OR DERABLES Performing Organization Address City/[facility]/ZIP Co de Phone Number [facility] ACCOUNT BILL * C-REACTIVE PROTEIN (12/11/2011 6:20 PM CDT) C-Reactive Protein 4.4 0.0 - 4.9 mg/L [facility] ACCOUNT BILL Blood specimen (specimen) BLOOD SPECIMEN / Unknown 12/11/2011 6:20 PM CDT 12/12/2011 4:32 AM CDT Narrative Resulting Agency Comment [facility] ??[facility] [phone] Isidro Heredia MD LAB - CHEMISTRY ORD ERABLES Performing Organization Address [facility] Co de Phone Number [facility] ACCOUNT BILL * (ABNORMAL) COMPREHENSIVE METABOLIC PANEL (12/11/2011 6:20 PM CDT) Glucose 103(H) 65 - 99 mg/dL [facility] ACCOUNT BILL BUN 22 6 - 24 mg/dL [facility] ACCOUNT BILL Creatinine 1.07 0.76 - 1.27 mg/dL [facility] ACCOUNT BILL eGFR by MDRD 81 >59 mL/min/1.7 3 [facility] ACCOUNT BILL eGFR by MDRD 94 >59 mL/min/1.7 3 [facility] ACCOUNT BILL BUN/Creatinine Ratio 21(H) 9 - 20 [facility] ACCOUNT BILL Sodium 141 134 - 144 mmol/L [facility] ACCOUNT BILL Potassium 3.8 3.5 - 5.2 mmol/L [facility] ACCOUNT BILL Chloride 104 97 - 108 mmol/L [facility] ACCOUNT BILL CO2 23 20 - 32 mmol/L [facility] ACCOUNT BILL Calcium 9.3 8.7 - 10.2 mg/dL [facility] ACCOUNT BILL Protein Total 7.1 6.0 - 8.5 g/dL [facility] ACCOUNT BILL Albumin 4.6 3.5 - 5.5 g/dL [facility] ACCOUNT BILL Globulin Total 2.5 1.5 - 4.5 g/dL [facility] ACCOUNT BILL Albumin/Globulin Ratio 1.8 1.1 - 2.5 [facility] ACCOUNT BILL Bilirubin Total 0.4 0.0 - 1.2 mg/dL [facility] ACCOUNT BILL Alkaline Phosphatase 90 25 - 150 IU/L [facility] ACCOUNT BILL AST 22 0 - 40 IU/L [facility] ACCOUNT BILL ALT 27 0 - 55 IU/L [facility] ACCOUNT BILL Blood specimen (specimen) BLOOD SPECIMEN / Unknown 12/11/2011 6:20 PM CDT 12/12/2011 4:32 AM CDT Narrative Resulting Agency Comment [facility] [address] ??[facility] [phone] Isidro Heredia MD LAB - CHEMISTRY ORD ERABLES [facility] ACCOUNT BILL * (ABNORMAL) CBC W AUTO DIFFERENTIAL (12/11/2011 6:20 PM CDT) WBC 10.9(H) 4.0 - 10.5 x10E3/uL [facility] ACCOUNT BILL RBC 4.29 4.14 - 5.80 x10E6/uL [facility] ACCOUNT BILL Hemoglobin 13.0 12.6 - 17.7 g/dL [facility] ACCOUNT BILL Hematocrit 38.3 37.5 - 51.0 % [facility] ACCOUNT BILL MCV 89 79 - 97 fL [facility] ACCOUNT BILL MCH 30.3 26.6 - 33.0 pg [facility] ACCOUNT BILL MCHC 33.9 31.5 - 35.7 g/dL [facility] ACCOUNT BILL RDW 15.6(H) 12.3 - 15.4 % [facility] ACCOUNT BILL Platelet Count 199 140 - 415 x10E3/uL [facility] ACCOUNT BILL Granulocytes % 65 40 - 74 % [facility] ACCOUNT BILL Lymphocytes % 28 14 - 46 % [facility] ACCOUNT BILL Monocytes % 5 4 - 13 % [facility] ACCOUNT BILL Eosinophils % 2 0 - 7 % [facility] ACCOUNT BILL Basophils % 0 0 - 3 % [facility] ACCOUNT BILL Immature Cells NOT NEEDED [facility] ACCOUNT BILL Comment:Ancillary determined the test is not needed Granulocytes Absolute 7.0 1.8 - 7.8 x10E3/uL [facility] ACCOUNT BILL [...] Blood specimen (specimen) BLOOD SPECIMEN / Unknown 12/11/2011 6:20 PM CDT 12/12/2011 4:32 AM CDT Narrative Resulting Agency Comment [facility] [address] ??[facility] [phone] Isidro Heredia MD LAB - HEMATOLOGY OR DERABLES [facility] ACCOUNT BILL documented in this encounter Visit Diagnoses Diagnosis Rheumatoid arthritis(714.0) ([facility])- Primary Rheumatoid arthritis Triceps tendonitis Other enthesopathy of elbow region Chronic pain syndrome documented in this encounter Care Teams Crew Person Relationship Specialty Start Date End Date Nolberto Nicole MD PCP - General 07/21/08 12/30/13 Isidro Heredia MD Rheumatology 02/09/11 documented as of this encounter
--- OUTSIDE RECORDS SUMMARY | 2024-05-03 04:15 | XMS_ITS | Encounter Summary ---
Author Organization [facility] Address [address] [facility] [place] [address] Care Team Providers Care Pottery Machine Operator Name Role Phone Nolberto Nicole MD Primary Care Provider [phone] Isidro Heredia MD Unavailable Reason for Visit * Reason Comments Rheumatoid Arthritis pain scale: 10/10 t olerating meds well no abdominal pain fevish and has cold sx: nasal and head congested Upper Extremity Problem rt shoulder pain hard to lift, neck pain rt side Pain Knee obdulia * Evaluate & Treat (Routine) - Closed Specialty Diagnoses / Procedures Referred By Lawrence shah Referred To Contact Diagnoses Rheumatoid arthritis(714.0) ([facility]) Procedures [place] OFFICE VISIT DURING HOURS Nolberto Nicole MD [address] [place] [address] Isidro Heredia MD [address] [place] [address] Referral ID Status Reason Start Date Expiration Date Visits Re quested Visits Authorized [id number] Closed 02/20/2012 08/18/2012 1 5 Encounter Details Date Type Department Care Team (Late st Contact Info) Description 05/27/2012 5:00 PM TRANSPLANT NURSE Office Visit [facility] - Rheumatology [address] [place] [address] Isidro Heredia MD [address] [place] [address] Rheumatoid arthritis (HCC) (Primary Dx); Subacromial bursitis Social History Tobacco Use Types [...] Sign Reading Time Taken Comments Blood Pressure 130/72 05/27/2012 5:38 PM TRANSPLANT NURSE Pulse 80 05/27/2012 5:38 PM TRANSPLANT NURSE Temperature 36.8 ??C (98.2 ??F) 05/27/2012 5:38 PM CS T Respiratory Rate - - Oxygen Saturation - - Inhaled Oxygen Concentration - - Weight 112.9 kg (248 lb 12.8 oz) 05/27/2012 5:38 PM TRANSPLANT NURSE Height - - Body Mass Index 35.7 05/15/2011 5:19 PM TRANSPLANT NURSE documented in this encounter Progress Notes * Isidro Heredia MD - 06/03/2012 7:00 AM CSTQuick Note: mtx ok SPLANT NURSE * Isidro Heredia MD - 05/27/2012 5:59 PM CST Subjective: Chalino Deng 51 y.o. male is here for Chief Complaint Patient presents with ??? Rheumatoid Arthritis pain scale: 10/10 tolerating meds well no abdominal pain fevish and has cold sx: nasal and head congested ??? Upper Extremity Problem rt shoulder pain hard to lift, neck pain rt side ??? Pain Knee obdulia HPI: On mtx humira pred 20 mg for ra and percocet for chronic pain He needs another ppd and application for rituxan Pain Level: 10/10 left shoulder neck knees hands Am stiffness all day Global 8/10 Fatigue yes Medication Side Effects [...] PO) Take by mouth once daily. ??? Ltraproduiy-Naczyhpjn-Ewy C-Mn (GLUCOSAMINE CHONDR 1500 COMPLX PO) Take [...] on file Review of Systems: General: He has fever, chills, for last viral synd no sweats, weight loss Eyes: No redness, discharge, [...] Physical Exam: wdwn wm in nad a/o x 3 BP 130/72 Pulse 80 Temp 98.2 ??F Wt 112.855 kg (248 lb 12.8 oz) Head: perrla, eyes no [...] 8/SJ, 0/muscle tenderness or weakness LUE: 13/TJ, 5/SJ, 0/muscle tenderness or weakness RLE: /TJ, 1/SJ, 0/muscle tenderness or weakness LLE: 1/TJ, 1/SJ, 0/muscle tenderness or weakness Assessment: Encounter Diagnoses Name Primary? Rheumatoid arthritis ??? Subacromial bursitis poorly controlled ra and bursitis Needs shoulder injection Same meds Try again for rituxan Plan: Plan Orders Placed This Encounter ??? TRIAMCINOLON ACETONID NOS 10 MG INJ ??? CBC W AUTO DIFFERENTIAL ??? COMPREHENSIVE METABOLIC PANEL ??? C-REACTIVE PROTEIN ??? SED RATE WESTERGREN ??? MA DRAIN/INJECT LARGE JOINT/BURSA ??? oxycodone-acetaminophen (PERCOCET) 5-325 MG tablet Sig: Take 1 Tab by mouth every 6 hours as needed for Pain. Dispense: 120 Tab Refill: 0 ??? triamcinolone acetonide (KENALOG) injection Si mL by Intra-articular route once for 1 dose. Dispense: 2 mL Refill: 0 Under sterile condition, 2 cc's of tac were injected in the left subacromial bursa. Patient tolerated procedure well without complications. Follow up in office in 4 weeks SPLANT NURSE * Rea Hagan MA - 05/27/2012 5:41 PM CST Chief Complaint Patient presents with ??? Rheumatoid Arthritis pain scale: 10/10 tolerating meds well no abdominal pain fevish and has cold sx: nasal and head congested ??? Upper Extremity Problem rt shoulder pain hard to lift, neck pain rt side ??? Pain Knee obdulia BP 130/72 Pulse 80 Temp 98.2 ??F Wt 112.855 kg (248 lb 12.8 oz) SPLANT NURSE documented in this encounter Plan of Treatment Upcoming Encounters Date Type Department Care Team (Late st Contact Info) Description 06/03/2024 1:00 PM TRANSPLANT NURSE Appointment [facility] - Rheumatology [address] [place] [address] 06/03/2024 2:00 PM TRANSPLANT NURSE Office Visit [facility] - Rheumatology [address] [place] [address] Gloria Smith MD [address] [place] [phone] documented as of this encounter Procedures Procedure Name Priority Date/Time Associated Diagnosis Comments C-REACTIVE PROTEIN Routine 05/27/2012 6: 20 PM TRANSPLANT NURSE Rheumatoid arthritis (HCC) ERYTHROCYTE SEDIMENTATION RATE Routine 05/27/2012 6:20 PM TRANSPLANT NURSE Rheumatoid arthritis (HCC) CBC W AUTO DIFFERENTIAL Routine 05/27/2012 6:20 PM TRANSPLANT NURSE Rheumatoid arthritis (HCC) COMPREHENSIVE METABOLIC PANEL Routine 05/27/2012 6:20 PM TRANSPLANT NURSE Rheumatoid arthritis (HCC) documented in this encounter Results * (ABNORMAL) SED RATE WESTERGREN (05/27/2012 6:20 PM TRANSPLANT NURSE) Erythrocyte Sedimentation Rate Westergren 22(H) 0 - 15 mm/hr [facility] ACCOUNT BILL Blood specimen (specimen) BLOOD SPECIMEN / Unknown 05/27/2012 6:20 PM TRANSPLANT NURSE 05/27/2012 7:35 PM TRANSPLANT NURSE Narrative Resulting Agency Comment [facility] [place] [address] ??[facility] [phone] Isidro Heredia MD LAB - HEMATOLOGY OR DERABLES [facility] ACCOUNT BILL * C-REACTIVE PROTEIN (05/27/2012 6:20 PM TRANSPLANT NURSE) C-Reactive Protein 2.9 0.0 - 4.9 mg/L [facility] ACCOUNT BILL Blood specimen (specimen) BLOOD SPECIMEN / Unknown 05/27/2012 6:20 PM TRANSPLANT NURSE 05/27/2012 7:35 PM TRANSPLANT NURSE Narrative Resulting Agency Comment [facility] [place] [address] ??[facility] [phone] Isidro Heredia MD LAB - CHEMISTRY ORD ERABLES [facility] ACCOUNT BILL * (ABNORMAL) COMPREHENSIVE METABOLIC PANEL (05/27/2012 6:20 PM TRANSPLANT NURSE) Glucose 93 65 - 99 mg/dL [facility] ACCOUNT BILL BUN 18 6 - 24 mg/dL [facility] ACCOUNT BILL Creatinine 0.96 0.76 - 1.27 mg/dL [facility] ACCOUNT BILL eGFR by MDRD 92 >59 mL/min/1.7 3 [facility] ACCOUNT BILL eGFR by MDRD 107 >59 mL/min/1.7 3 [facility] ACCOUNT BILL BUN/Creatinine Ratio 19 9 - 20 [facility] ACCOUNT BILL Sodium 137 134 - 144 mmol/L [facility] ACCOUNT BILL Potassium 4.1 3.5 - 5.2 mmol/L [facility] ACCOUNT BILL Chloride 104 97 - 108 mmol/L [facility] ACCOUNT BILL CO2 17(L) 20 - 32 mmol/L [facility] ACCOUNT BILL [...] - 150 IU/L [facility] ACCOUNT BILL AST 20 0 - 40 IU/L [facility] ACCOUNT BILL ALT 21 0 - 44 IU/L [facility] ACCOUNT BILL Blood specimen (specimen) BLOOD SPECIMEN / Unknown 05/27/2012 6:20 PM TRANSPLANT NURSE 05/27/2012 7:35 PM TRANSPLANT NURSE Narrative Resulting Agency Comment [facility] [address] ??[facility] [phone] Isidro Heredia MD LAB - CHEMISTRY ORD ERABLES [facility] ACCOUNT BILL * (ABNORMAL) CBC W AUTO DIFFERENTIAL (05/27/2012 6:20 PM TRANSPLANT NURSE) WBC 11.1(H) 4.0 - 10.5 x10E3/uL [facility] ACCOUNT BILL RBC 4.64 4.14 - 5.80 x10E6/uL [facility] ACCOUNT BILL Hemoglobin 13.6 12.6 - 17.7 g/dL [facility] ACCOUNT BILL Hematocrit 41.0 37.5 - 51.0 % [facility] ACCOUNT BILL MCV 88 79 - 97 fL [facility] ACCOUNT BILL MCH 29.3 26.6 - 33.0 pg [facility] ACCOUNT BILL MCHC 33.2 31.5 - 35.7 g/dL [facility] ACCOUNT BILL RDW 14.4 12.3 - 15.4 % [facility] ACCOUNT BILL Platelet Count 225 140 - 415 x10E3/uL [facility] ACCOUNT BILL Granulocytes % 58 40 - 74 % [facility] ACCOUNT [...] the test is not needed Granulocytes Absolute 6.5 1.8 - 7.8 x10E3/uL [facility] ACCOUNT BILL [...] Blood specimen (specimen) BLOOD SPECIMEN / Unknown 05/27/2012 6:20 PM TRANSPLANT NURSE 05/27/2012 7:35 PM TRANSPLANT NURSE Narrative Resulting Agency Comment [facility] [address] ??[facility] [phone] Isidro Heredia MD LAB - HEMATOLOGY OR DERABLES [facility] ACCOUNT BILL documented in this encounter Visit Diagnoses Diagnosis Rheumatoid arthritis(714.0) ([facility])- Primary Rheumatoid arthritis Subacromial bursitis Other specified disorders of rotator cuff syndrome of shoulder and allied disorders documented in this encounter Care Teams Pottery Machine Operator Relationship Specialty Start Date End Date Nolberto Nicole MD PCP - General 07/21/08 12/30/13 Isidro Heredia MD Rheumatology 02/09/11 documented as of this encounter
--- OUTSIDE RECORDS SUMMARY | 2024-05-03 04:15 | XMS_ITS | Encounter Summary ---
Author Organization [facility] Address [address] [place] [address] Care Team Providers Care Sales Account Coordinator Name Role Phone Nolberto Nicole MD Primary Care Provider [phone] Isidro Heredia MD Unavailable [phone] Reason for Visit * Reason Onset Date Comments General 08/01/2011 Request call ugo Valiente Encounter Details Date Type Department Care Team (Late st Contact Info) Description 08/01/2011 Telephone [facility] - Rheumatology [address] [place] [address] Isidro Heredia MD [address] [place] [phone] General (Request call from Dr Valiente) Social History Tobacco Use Types Packs/Day Years [...] Telephone Encounter - Rea Hagan MA - 08/01/2011 6:[address] Valiente ask to call patient. He hadn't seen him in a while. Per patient her was in the hospital 3 times; pneumonia and uti x 2. His first day back to work was Sunday07/31/11. He sched appointment 08/07/11 documented in this encounter Plan of Treatment Upcoming Encounters Date Type Department Care Team (Late st Contact Info) Description 06/03/2024 1:00 PM LAV CREWMAN Appointment [facility] - Rheumatology [address] [place] [address] [phone] 06/03/2024 2:00 PM LAV CREWMAN Office Visit [facility] - Rheumatology [address] [place] [address] [phone] Gloria Smith MD [address] [place] [phone] documented as of this encounter Visit Diagnoses Not on filedocumented in this encounter Care Teams Sales Account Coordinator Relationship Specialty Start Date End Date Nolberto Nicole MD PCP - General 07/21/08 12/30/13 Isidro Heredia MD Rheumatology 02/09/11 documented as of this encounter
--- OUTSIDE RECORDS SUMMARY | 2024-05-03 04:15 | XMS_ITS | Encounter Summary ---
Author Organization [facility] Address [address] [place] [address] Care Team Providers Care Head Of Sales Name Role Phone Nolberto Nicole MD Primary Care Provider [phone] Isidro Heredia MD Unavailable [phone] Reason for Visit * Reason Comments Follow-up ra Stiff Hand obdulia Encounter Details Date Type Department Care Team (Late st Contact Info) Description 03/20/2011 4:45 PM CONCEPTOR Office Visit [facility] - Rheumatology [address] [place] [address] Isidro Heredia MD [address] [place] [id number] Rheumatoid arthritis (HCC) (Primary Dx); Triceps [...] Sign Reading Time Taken Comments Blood Pressure 120/80 03/20/2011 5:10 PM CONCEPTOR Pulse 76 03/20/2011 5:10 PM CONCEPTOR Temperature - - Respiratory Rate - - Oxygen Saturation - - Inhaled Oxygen Concentration - - Weight 108.9 kg (240 lb) 03/20/2011 5:10 PM CONCEPTOR Height - - Body Mass Index 34.44 02/08/2009 5:43 PM CDT documented in this encounter Progress Notes * Isidro Heredia MD - 03/26/2011 5:36 PM CSTQuick Note: mtx ok See if we requested his old records EPTOR * Isidro Heredia MD - 03/20/2011 5:10 PM CST Subjective: Chalino Deng 50 y.o. male Chief Complaint Patient presents with ??? Follow-up ra ??? Stiff Hand obdulia Current Outpatient Prescriptions on File Prior to Visit Medication Sig Dispense Refill ??? oxycodone-acetaminophen (PERCOCET) 5-325 MG tablet Take 1 Tab by mouth every 6 hours as needed for Pain. 120 Tab 0 ??? fish oil/omega-3 fatty acids (FISH OIL) 1000 MG capsule Take 1,000 mg by mouth 2 times daily. ??? niacin, Immediate Release, 500 MG tablet Take 500 mg by mouth at bedtime. ??? Multiple Vitamin (MULTI-VITAMIN PO) Take by mouth once daily. ??? Injqfanxkpg-Lzldpjkmw-Nzc C-Mn (GLUCOSAMINE CHONDR 1500 COMPLX PO) Take [...] Use Not on file on mtx humira percocet pred 20 mg Pain Level: 7/10 hands and feet Am stiffness 1 hr Global 5/10 Fatigue y Medication Side Effects n Review [...] No cyanosis, clubbing, edema OTHER: Objective: BP 120/80 Pulse 76 Wt 240 lb (108.863 kg) Tender Joint Count 14/28 Swollen Joint Count 14/28 Muscles: Weak or Tender 0 Rheumatoid Nodules: [...] were placed in this encounter. Same meds Follow up in office in 4 weeks Get old records to verify previous biologics EPTOR * Bentley Rea YouJED Thibodeaux - 03/20/2011 5:10 PM CST Chief Complaint Patient presents with ??? Follow-up ra ??? Stiff Hand obdulia BP 120/80 Pulse 76 Wt 240 lb (108.863 kg) EPTOR documented in this encounter Plan of Treatment Upcoming Encounters Date Type Department Care Team (Late st Contact Info) Description 06/03/2024 1:00 PM CONCEPTOR Appointment [facility] - Rheumatology [address] [place] [address] 06/03/2024 2:00 PM CONCEPTOR Office Visit [facility] - Rheumatology [address] [place] [address] Gloria Smith MD [address] [place] [phone] Scheduled Orders Name Type Priority Associated Diagnoses Orde r Schedule CBC W AUTO DIFFERENTIAL Lab Routine Rheumatoid arthritis (FORMERLY [facility]) Ordered: 03/20/2011 COMPREHENSIVE METABOLIC PANEL Lab Routine Rheumatoid arthritis ([facility]) Ordered: 03/20/2011 C-REACTIVE PROTEIN Lab Routine Rheumatoid arthritis ([facility]) Ordered: 03/20/2011 SED RATE WESTERGREN AUTO Lab Routine Rheumatoid arthritis (HCC) Ordered: 03/20/2011 documented as of this encounter Procedures Procedure Name Priority Date/Time Associated Diagnosis Comments C-REACTIVE PROTEIN Routine 03/20/2011 5: 07 PM CONCEPTOR Rheumatoid arthritis (HCC) ERYTHROCYTE SEDIMENTATION RATE Routine 03/20/2011 5:07 PM CONCEPTOR Rheumatoid arthritis (HCC) CBC W AUTO DIFFERENTIAL Routine 03/20/2011 5:07 PM CONCEPTOR Rheumatoid arthritis (HCC) COMPREHENSIVE METABOLIC PANEL Routine 03/20/2011 5:07 PM CONCEPTOR Rheumatoid arthritis (HCC) documented in this encounter Results * SED RATE WESTERGREN AUTO (03/20/2011 5:07 PM CONCEPTOR) Erythrocyte Sedimentation Rate Westergren 11 0 - 23 mm/hr [facility] ACCOUNT BILL Blood specimen (specimen) BLOOD SPECIMEN / Unknown 03/20/2011 5:07 PM CONCEPTOR 03/20/2011 9:58 PM CONCEPTOR Narrative Resulting Agency Comment [facility] ??[facility] [id number] Isidro Heredia MD LAB - HEMATOLOGY OR DERABLES [facility] ACCOUNT BILL * C-REACTIVE PROTEIN (03/20/2011 5:07 PM CONCEPTOR) C-Reactive Protein 1.6 0.0 - 4.9 mg/L [facility] ACCOUNT BILL Blood specimen (specimen) BLOOD SPECIMEN / Unknown 03/20/2011 5:07 PM CONCEPTOR 03/20/2011 9:58 PM CONCEPTOR Narrative Resulting Agency Comment [facility] ??[facility] [id number] Isidro Heredia MD LAB - CHEMISTRY ORD ERABLES [facility] ACCOUNT BILL * COMPREHENSIVE METABOLIC PANEL (03/20/2011 5:07 PM CONCEPTOR) Glucose 97 65 - 99 mg/dL [facility] ACCOUNT BILL BUN 18 6 - 24 mg/dL [facility] ACCOUNT BILL Creatinine 0.99 0.76 - 1.27 mg/dL [facility] ACCOUNT BILL eGFR by MDRD 90 >59 mL/min/1.7 3 [facility] ACCOUNT BILL eGFR by MDRD 104 >59 mL/min/1.7 3 [facility] ACCOUNT BILL Comment: Note: A persistent eGFR <60 mL/min/1.73 m2 (3 months or more) may indicate chronic kidney disease. An eGFR >59 mL/min/1.73 m2 with an elevated urine protein also may indicate chronic kidney disease. Calculated using CKD-EPI formula. BUN/Creatinine Ratio 18 9 - 20 [facility] ACCOUNT BILL Sodium 140 135 - 145 mmol/L [facility] ACCOUNT BILL [...] 1.2 mg/dL [facility] ACCOUNT BILL Alkaline Phosphatase 83 25 - 150 IU/L [facility] ACCOUNT BILL AST 29 0 - 40 IU/L [facility] ACCOUNT BILL ALT 32 0 - 55 IU/L [facility] ACCOUNT BILL Blood specimen (specimen) BLOOD SPECIMEN / Unknown 03/20/2011 5:07 PM CONCEPTOR 03/20/2011 9:58 PM CONCEPTOR Narrative Resulting Agency Comment [facility] [address] ??[facility] [phone] Isidro Heredia MD LAB - CHEMISTRY ORD ERABLES [facility] ACCOUNT BILL * (ABNORMAL) CBC W AUTO DIFFERENTIAL (03/20/2011 5:07 PM CONCEPTOR) WBC 8.2 4.0 - 10.5 x10E3/uL [facility] ACCOUNT BILL RBC 4.34 4.10 - 5.60 x10E6/uL [facility] ACCOUNT BILL Hemoglobin 12.9 12.5 - 17.0 g/dL [facility] ACCOUNT BILL Hematocrit 39.6 36.0 - 50.0 % [facility] ACCOUNT BILL MCV 91 80 - 98 fL [facility] ACCOUNT BILL MCH 29.7 27.0 - 34.0 pg [facility] ACCOUNT BILL MCHC 32.6 32.0 - 36.0 g/dL [facility] ACCOUNT BILL RDW 16.0(H) 11.7 - 15.0 % [facility] ACCOUNT BILL Platelet Count 212 140 - 415 x10E3/uL [facility] ACCOUNT BILL [...] the test is not needed Granulocytes Absolute 4.4 1.8 - 7.8 x10E3/uL [facility] ACCOUNT BILL Lymphocytes Absolute 3.1 0.7 - 4.5 x10E3/uL [facility] ACCOUNT BILL Monocytes Absolute 0.5 0.1 - 1.0 x10E3/uL [facility] ACCOUNT BILL [...] Blood specimen (specimen) BLOOD SPECIMEN / Unknown 03/20/2011 5:07 PM CONCEPTOR 03/20/2011 9:58 PM CONCEPTOR Narrative Resulting Agency Comment [facility] [address] ??[facility] [phone] Isidro Heredia MD LAB - HEMATOLOGY OR DERABLES Performing Organization Address City/State/[facility] Co de Phone Number [facility] ACCOUNT BILL documented in this encounter Visit Diagnoses Diagnosis Rheumatoid arthritis(714.0) (FORMERLY [facility])- Primary Rheumatoid arthritis Triceps tendonitis Other enthesopathy of elbow region documented in this encounter Care Teams Head Of Sales Relationship Specialty Start Date End Date Nolberto Nicole MD PCP - General 07/21/08 12/30/13 Isidro Heredia MD Rheumatology 02/09/11 documented as of this encounter
--- OUTSIDE RECORDS SUMMARY | 2024-05-03 04:15 | XMS_ITS | Encounter Summary ---
Author Organization [facility] Address [address] [place] [address] Care Team Providers Care Ships Or Barges Loader Name Role Phone Nolberto Nicole MD Primary Care Provider Isidro Heredia MD Unavailable [phone] Reason for Visit * Reason Comments Follow-up RA Upper Extremity Problem rt shoulder and hands especially when he wakes up in the am. swelling in obdulia hands Medication Request wants to discuss dec rease in Prednisone * Evaluate & Treat (Routine) - Closed Specialty Diagnoses / Procedures Referred By Lawrence shah Referred To Contact Diagnoses Rheumatoid arthritis(714.0) ([facility]) Procedures CO OFFICE VISIT DURING HOURS Nolberto Nicole MD [address] [place] [phone] Isidro Heredia MD [address] [place] [address] Referral ID Status Reason Start Date Expiration Date Visits Re quested Visits Authorized [id number] Closed 02/20/2012 08/18/2012 1 5 Encounter Details Date Type Department Care Team (Late st Contact Info) Description 03/11/2012 5:00 PM RIG SITE ENGINEER Office Visit [facility] - Rheumatology [address] [place] [address] Isidro Heredia MD [address] [place] [address] Rheumatoid arthritis (HCC) (Primary Dx); [...] Sign Reading Time Taken Comments Blood Pressure 130/68 03/11/2012 5:02 PM RIG SITE ENGINEER Pulse 88 03/11/2012 5:02 PM RIG SITE ENGINEER Temperature - - Respiratory Rate - - Oxygen Saturation - - Inhaled Oxygen Concentration - - Weight 114.2 kg (251 lb 12.8 oz) 03/11/2012 5:02 PM RIG SITE ENGINEER Height - - Body Mass Index 36.13 05/15/2011 5:19 PM RIG SITE ENGINEER documented in this encounter Progress Notes * Rea Hagan MA - 03/15/2012 2:29 PM CSTQuick Note: Sent lab letter to pt SITE ENGINEER * Isidro Heredia MD - 03/15/2012 5:43 AM CSTQuick Note: mtx ok SITE ENGINEER * Isidro Heredia MD - 03/11/2012 5:23 PM CST Subjective: Chalino Deng 51 y.o. male is here for Chief Complaint Patient presents with ??? Follow-up RA ??? Upper Extremity Problem rt shoulder and hands especially when he wakes up in the am. swelling in obdulia hands ??? Medication Request wants to discuss decrease in Prednisone Current Outpatient Prescriptions on File Prior to [...] PO) Take by mouth once daily. ??? Ptrsiardwfu-Hohrgkxog-Dcb C-Mn (GLUCOSAMINE CHONDR 1500 COMPLX PO) Take [...] Use Not on file on mtx humira pred 30 mg/d for ra And percocet for chronic pain He Has been on remicade orencia Pain Level: 810 wakes him up at hs hands wrist shoulders knees feet Am stiffness all day Global 11/06 Fatigue yes Medication Side Effects no Review of Systems: General: No fever, chills, sweats, weight loss Eyes: No redness, discharge, blurred vision ENMT: No ear ache, loss of hearing, runny nose, sore gums, ulcers, sore throat CV: No chest pain, palpitations, orthopnea, syncope Resp: No shortness of breath, cough, pleurisy, wheezing GI No nausea vomiting, abdominal pain, weight loss, anorexia, gerd, melena, diarrhea On flomax for oab He had uti MS: NEURO: No headaches, seizures, dizziness, confusion, [...] wm in nad a/o gait ok BP 130/68 Pulse 88 Wt 251 lb 12.8 oz (114.216 kg) Head: perrla, eyes no irritation, vision and hearing intact, no oral ulcers, tongue normal, throat clear Neck:supple, no bruits, adenopathy Chest: clear, no rales, rhonchi or wheezes. Heart nsr. No S3,S4, or murmurs Abdomen:soft, no masses or tenderness, no organomegaly Genitalia, Groin, Buttocks: Back: no abnormal curvature, tenderness, or muscle spasm Extremities: No edema, cyanosis, or rash RUE: 13/TJ, 10/SJ, 0/muscle tenderness or weakness LUE: 13/TJ, 7/SJ, 0/muscle tenderness or weakness RLE: 1/TJ, 1/SJ, 0/muscle tenderness or weakness knees LLE: 1/TJ, 1/SJ, 0/muscle tenderness or weakness Assessment: Encounter Diagnoses Name Primary? Rheumatoid arthritis Yes ??? Triceps tendonitis acute exacerbation ra Same meds Plan: Plan Orders Placed [...] 3 times daily. Dispense: 270 Tab Refill: 1 try for rituxan Follow up in office in 4 weeks SITE ENGINEER * Rea Hagan MA - 03/11/2012 5:03 PM CST Chief Complaint Patient presents with ??? Follow-up RA ??? Upper Extremity Problem rt shoulder and hands especially when he wakes up in the am. swelling in obdulia hands ??? Medication Request wants to discuss decrease in Prednisone BP 130/68 Pulse 88 Wt 251 lb 12.8 oz (114.216 kg) SITE ENGINEER documented in this encounter Plan of Treatment Upcoming Encounters Date Type Department Care Team (Late st Contact Info) Description 06/03/2024 1:00 PM RIG SITE ENGINEER Appointment [facility] - Rheumatology [address] [place] [address] 06/03/2024 2:00 PM RIG SITE ENGINEER Office Visit [facility] - Rheumatology [address] [place] [address] Gloria Smith MD [address] [place] [phone] documented as of this encounter Procedures Procedure Name Priority Date/Time Associated Diagnosis Comments C-REACTIVE PROTEIN Routine 03/11/2012 5: 38 PM RIG SITE ENGINEER Rheumatoid arthritis (HCC) ERYTHROCYTE SEDIMENTATION RATE Routine 03/11/2012 5:38 PM RIG SITE ENGINEER Rheumatoid arthritis (HCC) CBC W AUTO DIFFERENTIAL Routine 03/11/2012 5:38 PM RIG SITE ENGINEER Rheumatoid arthritis (HCC) COMPREHENSIVE METABOLIC PANEL Routine 03/11/2012 5:38 PM RIG SITE ENGINEER Rheumatoid arthritis (HCC) documented in this encounter Results * (ABNORMAL) SED RATE WESTERGREN (03/11/2012 5:38 PM RIG SITE ENGINEER) Erythrocyte Sedimentation Rate Westergren 26(H) 0 - 15 mm/hr [facility] ACCOUNT BILL Blood specimen (specimen) BLOOD SPECIMEN / Unknown 03/11/2012 5:38 PM RIG SITE ENGINEER 03/11/2012 10:04 PM RIG SITE ENGINEER Narrative Resulting Agency Comment [facility] [address] ??[facility] [id number] Isidro Heredia MD LAB - HEMATOLOGY OR DERABLES [facility] ACCOUNT BILL * C-REACTIVE PROTEIN (03/11/2012 5:38 PM RIG SITE ENGINEER) C-Reactive Protein 3.6 0.0 - 4.9 mg/L [facility] ACCOUNT BILL Blood specimen (specimen) BLOOD SPECIMEN / Unknown 03/11/2012 5:38 PM RIG SITE ENGINEER 03/11/2012 10:04 PM RIG SITE ENGINEER Narrative Resulting Agency Comment [facility] [phone] [facility] ??Critical access hospital [id number] Isidro Heredia MD LAB - CHEMISTRY ORD ERABLES Performing Organization Address City/[facility] [address]/ZIP Co de Phone Number [facility] ACCOUNT BILL * (ABNORMAL) COMPREHENSIVE METABOLIC PANEL (03/11/2012 5:38 PM RIG SITE ENGINEER) Glucose 113(H) 65 - 99 mg/dL [facility] ACCOUNT BILL BUN 26(H) 6 - 24 mg/dL [facility] ACCOUNT BILL Creatinine 0.89 0.76 - 1.27 mg/dL [facility] ACCOUNT BILL eGFR by MDRD 100 >59 mL/min/1.7 3 [facility] ACCOUNT BILL eGFR by MDRD 116 >59 mL/min/1.7 3 [facility] ACCOUNT BILL BUN/Creatinine Ratio 29(H) 9 - 20 [facility] ACCOUNT BILL Sodium 138 134 - 144 mmol/L [facility] ACCOUNT BILL Potassium 4.6 3.5 - 5.2 mmol/L [facility] ACCOUNT BILL Chloride 106 97 - 108 mmol/L [facility] ACCOUNT BILL [...] 0 - 44 IU/L [facility] ACCOUNT BILL Comment:Please note refere nce interval change Blood specimen (specimen) BLOOD SPECIMEN / Unknown 03/11/2012 5:38 PM RIG SITE ENGINEER 03/11/2012 10:04 PM RIG SITE ENGINEER Narrative Resulting Agency Comment [facility] [address] ??[facility] hospital [id number] Isidro Heredia MD LAB - CHEMISTRY ORD ERABLES [facility] ACCOUNT BILL * (ABNORMAL) CBC W AUTO DIFFERENTIAL (03/11/2012 5:38 PM RIG SITE ENGINEER) WBC 9.8 4.0 - 10.5 x10E3/uL [facility] ACCOUNT BILL RBC 4.13(L) 4.14 - 5.80 x10E6/uL [facility] ACCOUNT BILL Hemoglobin 12.6 12.6 - 17.7 g/dL [facility] ACCOUNT BILL Hematocrit 37.2(L) 37.5 - 51.0 % [facility] ACCOUNT BILL MCV 90 79 - 97 fL [facility] ACCOUNT BILL MCH 30.5 26.6 - 33.0 pg [facility] ACCOUNT BILL MCHC 33.9 31.5 - 35.7 g/dL [facility] ACCOUNT BILL RDW 15.0 12.3 - 15.4 % [facility] ACCOUNT BILL [...] the test is not needed Granulocytes Absolute 5.3 1.8 - 7.8 x10E3/uL [facility] ACCOUNT BILL [...] Blood specimen (specimen) BLOOD SPECIMEN / Unknown 03/11/2012 5:38 PM RIG SITE ENGINEER 03/11/2012 10:04 PM RIG SITE ENGINEER Narrative Resulting Agency Comment [facility] [address] ??[facility] access hospital [phone] Isidro Heredia MD LAB - HEMATOLOGY OR DERABLES [facility] ACCOUNT BILL documented in this encounter Visit Diagnoses Diagnosis Rheumatoid arthritis(714.0) (HCC)- Primary Rheumatoid arthritis Triceps tendonitis Other enthesopathy of elbow region documented in this encounter Care Teams Ships Or Barges Loader Relationship Specialty Start Date End Date Nolberto Nicole MD PCP - General 07/21/08 12/30/13 Isidro Heredia MD Rheumatology 02/09/11 documented as of this encounter
--- OUTSIDE RECORDS SUMMARY | 2024-05-03 04:15 | XMS_ITS | Encounter Summary ---
Author Organization [facility] Address [address] [place] [address] Care Team Providers Care Chemical Economist Name Role Phone Nolberto Nicole MD Primary Care Provider [phone] Isidro Heredia MD Unavailable [phone] Reason for Visit * Reason Comments Follow-up RA. wants to discuss Humira and Actemera Toenail fungus. rt big toe Chest Pain * Consult, Test & Treat (Routine) - Closed Specialty Diagnoses / Procedures Referred By Contac t Referred To Contact Diagnoses Rheumatoid arthritis(714.0) ([facility]) Procedures [facility] OFFICE VISIT DURING HOURS Nolberto Nicole MD [address] [place] [address] Isidro Heredia MD [address] [place] [address] Referral ID Status Reason Start Date Expiration Date Visits Re quested Visits Authorized [id number] Closed 01/06/2011 07/04/2011 1 5 Encounter Details Date Type Department Care Team (Late st Contact Info) Description 05/15/2011 5:15 PM DOOR BUILDER Office Visit [facility] - Rheumatology [address] [place] [address] Isidro Heredia MD [address] [place] [address] Rheumatoid arthritis (HCC) (Primary Dx); Triceps tendonitis; Hyperlipidemia Social History Tobacco Use Types Packs/Day [...] - - Weight 111.1 kg (245 lb) 05/15/2011 5:19 PM DOOR BUILDER Height 177.8 cm (5' 10 ) 05/15/2011 5:19 PM DOOR BUILDER Body Mass Index 35.15 05/15/2011 5:19 PM DOOR BUILDER documented in this encounter Progress Notes * Rea Hagan MA - 05/23/2011 12:12 PM CSTQuick Note: Sent lab letter to pt BUILDER * Isidro Heredia MD - 05/19/2011 7:38 PM CSTQuick Note: All labs ok Chol 191 BUILDER * Isidro Heredia MD - 05/15/2011 5:47 PM CST Subjective: Chalino Deng 50 y.o. male Chief Complaint Patient presents with ??? Follow-up RA. wants to discuss Humira and Actemera ??? Toenail fungus. rt big toe ??? Chest Pain Current Outpatient Prescriptions on File Prior to Visit Medication Sig Dispense Refill ??? fish oil/omega-3 fatty acids (FISH OIL) 1000 MG capsule Take 1,000 mg by mouth 2 times daily. ??? niacin, Immediate Release, 500 MG tablet Take 500 mg by mouth at bedtime. ??? Multiple Vitamin (MULTI-VITAMIN PO) Take by mouth once daily. ??? Xisodyrjjvu-Dnkoetysv-Xlc C-Mn (GLUCOSAMINE CHONDR 1500 COMPLX PO) Take by mouth once daily. ??? adalimumab (HUMIRA PEN) 40 MG/0.8ML injection [...] Use Not on file on mtx humira for ra and pain mgt Pain Level: good and bad days He has been traveling hands wrists ankles knees Am stiffness 1 hr Global 11/06 Fatigue y Medication Side Effects n Review of Systems: GENERAL: No fever, chills, sweats, weight loss EARS: No wax or hearing loss. NOSE: No runny nose, bleeding, sinus drainage MOUTH: No gingivitis or stomatitis GI: No nausea vomiting, abdominal pain, weight loss, anorexia, gerd HEART: No palpitations, orthopnea, syncope. He has chest pain sharp evanescant LUNGS: No shortness of breath, cough, pleurisy, wheezing : No nocturia, dysuria, frequency, urgency, kidney stones. SKIN: No rash, itching, dry skin MS: NEURO: No headaches, seizures, dizziness, confusion, numbness, tingling HEME: No bruising or bleeding, swollen glands EXTREMITIES: No cyanosis, clubbing, edema OTHER: Fungus rt toe Objective: Ht 5' 10 (1.778 m) Wt 245 lb (111.131 kg) BMI 35.15 kg/m2 Tender Joint Count 28/ Swollen Joint Count 03/27 Muscles: Weak or Tender 0 Rheumatoid Nodules: 0 Physical Exam: bp 110/80 HEENT perrla, hearing and vision intact, throat clear NECK- supple, no bruits LUNGS- clear, no rales , rhonchi or wheezes HEART- Normal Sinus Rhythm, no S3, S4 or murmurs ABDOMEN- soft, no masses or tenderness, no organomegaly EXTREMITIES- no edema he has fungus in r big toenail Assessment: Encounter Diagnoses Name Primary? Rheumatoid arthritis Yes ??? Triceps tendonitis ??? Hyperlipidemia Plan: Plan Orders Placed This Encounter ??? CBC W AUTO DIFFERENTIAL ??? COMPREHENSIVE METABOLIC PANEL ??? SED RATE WESTERGREN AUTO ??? LIPID PROFILE W LDL/HDL (PO REF LAB) ??? C-REACTIVE PROTEIN ??? methotrexate (RHEUMATREX) 2.5 MG tablet Sig: Take 6 Tabs by mouth every 7 days. Dispense: 72 Tab Refill: 3 ??? oxycodone-acetaminophen (PERCOCET) 5-325 MG tablet Sig: Take 1 Tab by mouth every 6 hours as needed for Pain. Dispense: 120 Tab Refill: 0 ??? esomeprazole (NEXIUM) 40 MG capsule Sig: Take 1 Cap by mouth daily before breakfast. Dispense: 90 Cap Refill: 3 ??? terbinafine (LAMISIL) 250 MG tablet Sig: Take 1 Tab by mouth once daily. Dispense: 30 Tab Refill: 1 lamisil for fungus Follow up in office in 4 weeks Check on status of actemra BUILDER documented in this encounter Plan of Treatment Upcoming Encounters Date Type Department Care Team (Late st Contact Info) Description 06/03/2024 1:00 PM DOOR BUILDER Appointment [facility] - Rheumatology [address] [place] [address] [phone] 06/03/2024 2:00 PM DOOR BUILDER Office Visit [facility] - Rheumatology [address] [place] [phone] Gloria Smith MD [address] [place] [phone] documented as of this encounter Procedures Procedure Name Priority Date/Time Associated Diagnosis Comments LIPID PROFILE W LDL/HDL RATIO Routine 05/15/2011 6:06 PM DOOR BUILDER Hyperlipidemia C-REACTIVE PROTEIN Routine 05/15/2011 6: 06 PM DOOR BUILDER Rheumatoid arthritis (HCC) ERYTHROCYTE SEDIMENTATION RATE Routine 05/15/2011 6:06 PM DOOR BUILDER Rheumatoid arthritis (HCC) CBC W AUTO DIFFERENTIAL Routine 05/15/2011 6:06 PM DOOR BUILDER Rheumatoid arthritis (HCC) COMPREHENSIVE METABOLIC PANEL Routine 05/15/2011 6:06 PM DOOR BUILDER Rheumatoid arthritis (HCC) documented in this encounter Results * C-REACTIVE PROTEIN (05/15/2011 6:06 PM DOOR BUILDER) C-Reactive Protein 2.1 0.0 - 4.9 mg/L [facility] ACCOUNT BILL Blood specimen (specimen) BLOOD SPECIMEN / Unknown 05/15/2011 6:06 PM DOOR BUILDER 05/15/2011 9:47 PM DOOR BUILDER Narrative Resulting Agency Comment [facility] [address] ??Critical access hospital [id number] Isidro Heredia MD LAB - CHEMISTRY ORD ERABLES [facility] ACCOUNT BILL * (ABNORMAL) LIPID PROFILE W LDL/HDL (PO REF LAB) (05/15/2011 6:06 PM DOOR BUILDER) Cholesterol 191 100 - 199 mg/dL [facility] [...] BLOOD SPECIMEN / Unknown 05/15/2011 6:06 PM DOOR BUILDER 05/15/2011 9:47 PM DOOR BUILDER Narrative Resulting Agency Comment [facility] [address] ??Critical access hospital [id number] Isidro Heredia MD LAB - CHEMISTRY ORD ERABLES Performing Organization Address City/[facility]/ZIP Co de Phone Number [facility] ACCOUNT BILL * SED RATE WESTERGREN AUTO (05/15/2011 6:06 PM DOOR BUILDER) Erythrocyte Sedimentation Rate Westergren 15 0 - 15 mm/hr [facility] ACCOUNT BILL Comment:Please note refere nce interval change Blood specimen (specimen) BLOOD SPECIMEN / Unknown 05/15/2011 6:06 PM DOOR BUILDER 05/15/2011 9:47 PM DOOR BUILDER Narrative Resulting Agency Comment [facility] [address] [facility] ??Critical access hospital [id number] Isidro Heredia MD LAB - HEMATOLOGY OR DERABLES Performing Organization Address City/[facility]/ZIP Co de Phone Number [facility] ACCOUNT BILL * (ABNORMAL) COMPREHENSIVE METABOLIC PANEL (05/15/2011 6:06 PM DOOR BUILDER) Glucose 120(H) 65 - 99 mg/dL [facility] ACCOUNT BILL [...] Comment:Please note refere nce interval change Potassium 5.0 3.5 - 5.2 mmol/L [facility] [...] Blood specimen (specimen) BLOOD SPECIMEN / Unknown 05/15/2011 6:06 PM DOOR BUILDER 05/15/2011 9:47 PM DOOR BUILDER Narrative Resulting Agency Comment [facility] [address] ??Critical access hospital [id number] Isidro Heredia MD LAB - CHEMISTRY ORD ERABLES [facility] ACCOUNT BILL * (ABNORMAL) CBC W AUTO DIFFERENTIAL (05/15/2011 6:06 PM DOOR BUILDER) WBC 9.2 4.0 - 10.5 x10E3/uL [facility] ACCOUNT BILL RBC 4.26 4.10 - 5.60 x10E6/uL [facility] ACCOUNT BILL Hemoglobin 12.5 12.5 - 17.0 g/dL [facility] ACCOUNT BILL Hematocrit 37.2 36.0 - 50.0 % [facility] ACCOUNT BILL MCV 87 80 - 98 fL [facility] ACCOUNT BILL MCH 29.3 27.0 - 34.0 pg [facility] ACCOUNT BILL MCHC 33.6 32.0 - 36.0 g/dL [facility] ACCOUNT BILL RDW 16.3(H) 11.7 - 15.0 % [facility] ACCOUNT BILL Platelet Count 202 140 - 415 x10E3/uL [facility] ACCOUNT BILL Granulocytes % 72 40 - 74 % [facility] ACCOUNT BILL Lymphocytes % 21 14 - 46 % [facility] ACCOUNT [...] 7.8 x10E3/uL [facility] ACCOUNT BILL Lymphocytes Absolute 1.9 0.7 - 4.5 x10E3/uL [facility] ACCOUNT BILL [...] Blood specimen (specimen) BLOOD SPECIMEN / Unknown 05/15/2011 6:06 PM DOOR BUILDER 05/15/2011 9:47 PM DOOR BUILDER Narrative Resulting Agency Comment [facility] [address] ??Critical access hospital [id number] Isidro Heredia MD LAB - HEMATOLOGY OR DERABLES [facility] ACCOUNT BILL documented in this encounter Visit Diagnoses Diagnosis Rheumatoid arthritis(714.0) ([facility])- Primary Rheumatoid arthritis Triceps tendonitis Other enthesopathy of elbow region Hyperlipidemia Other and unspecified hyperlipidemia documented in this encounter Care Teams Chemical Economist Relationship Specialty Start Date End Date Nolberto Nicole MD PCP - General 07/21/08 12/30/13 Isidro Heredia MD Rheumatology 02/09/11 documented as of this encounter
--- OUTSIDE RECORDS SUMMARY | 2024-05-03 04:15 | XMS_ITS | Encounter Summary ---
Author Organization [facility] Address [address] [place] [address] Care Team Providers Care Residential Sales Consultant Name Role Phone Nolberto Nicole MD Primary Care Provider [phone] Isidro Heredia MD Unavailable Reason for Visit * Reason Comments Follow-up ra Pain Back lower. sharp pain mo re on the left. stabbing pain Swelling Hand obdulia Pain Lower Extremity ankles ans knees Fatigue * Evaluate & Treat (Routine) - Closed Specialty Diagnoses / Procedures Referred By Contac t Referred To Contact Diagnoses Rheumatoid arthritis(714.0) ([facility]) Procedures [facility] OFFICE VISIT DURING HOURS Nolberto Nicole MD [address] [place] [address] Isidro Heredia MD [address] [place] [address] Referral ID Status Reason Start Date Expiration Date Visits Re quested Visits Authorized [id number] Closed 08/03/2011 01/30/2012 1 12 Encounter Details Date Type Department Care Team (Late st Contact Info) Description 10/09/2011 5:30 PM CDT Office Visit [facility] [employer] [facility] - Rheumatology [address] [place] [address] [phone] Isidro Heredia MD [address] [place] [place] [address] Rheumatoid arthritis (HCC) (Primary Dx); Triceps tendonitis; LBP (low back pain) Social History Tobacco Use Types Packs/Day Years [...] Reading Time Taken Comments Blood Pressure 110/84 10/09/2011 5:13 PM CDT Pulse 92 10/09/2011 5:13 PM CDT Temperature - - Respiratory Rate - - Oxygen Saturation - - Inhaled Oxygen Concentration - - Weight 110.2 kg (243 lb) 10/09/2011 5:13 PM CDT Height - - Body Mass Index 34.87 05/15/2011 5:19 PM 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 * Isidro Heredia MD - 10/18/2011 7:52 AM CDTQuick Note: mtx ok * Isidro Heredia MD - 10/09/2011 5:13 PM CDT Chief Complaint Patient presents with ??? Follow-up ra ??? Pain Back lower. sharp pain more on the left. stabbing pain ??? Swelling Hand obdulia ??? Pain Lower Extremity ankles ans knees ??? Fatigue BP 110/84 Pulse 92 Wt 243 lb (110.224 kg) Review of Systems GENERAL: No fever, chills, sweats, weight loss [...] MS: NEURO: No headaches, seizures, dizziness, confusion, He has numbness obdulia hand HEME: No bruising or bleeding, swollen glands EXTREMITIES: No cyanosis, clubbing, edema OTHER: Fatigue Subjective: Chalino Deng 50 y.o. male Chief Complaint Patient presents with ??? Follow-up ra ??? Pain Back lower. sharp pain more on the left. stabbing pain ??? Swelling Hand obdulia ??? Pain Lower Extremity ankles ans knees ??? Fatigue Current Outpatient Prescriptions on File [...] PO) Take by mouth once daily. ??? Ujkqpwnwjil-Zbpwgdkjv-Fqz C-Mn (GLUCOSAMINE CHONDR 1500 COMPLX PO) Take [...] Drug Use Not on file on humira and mtx for ra and percocet for pain mgt Pain Level: 8/10 hands knees ankles hips Am stiffness 1 hr Global 7/10 Fatigue very Medication Side Effects n 2 weeks hx of low back pain radiates to buttocks Denies any injury Objective: BP 110/84 Pulse 92 Wt 243 lb (110.224 kg) Tender Joint Count 26/28 Swollen Joint Count 828 Muscles: Weak or Tender 0 Rheumatoid Nodules: 0 Physical Exam: wdw n wm in nad a/o gait ok HEENT perrla, hearing and vision intact, throat clear NECK- supple, no bruits LUNGS- clear, no rales , rhonchi or wheezes HEART- Normal Sinus Rhythm, no S3, S4 or murmurs ABDOMEN- soft, no masses or tenderness, no organomegaly EXTREMITIES- no edema cyanosis ulcers SKIN- no rash Assessment: Encounter Diagnoses Name Primary? Rheumatoid arthritis ??? Triceps tendonitis ??? LBP (low back pain) Plan: Plan Orders Placed This Encounter ??? CBC W AUTO DIFFERENTIAL ??? COMPREHENSIVE METABOLIC PANEL ??? C-REACTIVE PROTEIN ??? SED RATE WESTERGREN ??? oxycodone-acetaminophen (PERCOCET) 5-325 MG tablet Sig: Take 1 Tab by mouth every 6 hours as needed for Pain. Dispense: 120 Tab Refill: 0 ??? DISCONTD: metaxalone (SKELAXIN) 800 MG tablet Sig: Take 1 Tab by mouth 3 times daily. Dispense: 60 Tab Refill: 0 ??? metaxalone (SKELAXIN) 800 MG tablet Sig: Take 1 Tab by mouth 3 times daily. Dispense: 60 Tab Refill: 0 Same meds for ra poorly controlled and low back pain Follow up in office in 4 weeks Skelaxin 800 tid For acute back pain documented in this encounter Plan of Treatment Upcoming Encounters Date Type Department Care Team (Late st Contact Info) Description 06/03/2024 1:00 PM FOREIGN LANGUAGES PROFESSOR Appointment [facility] - Rheumatology [address] [place] [address] 06/03/2024 2:00 PM FOREIGN LANGUAGES PROFESSOR Office Visit [facility] - Rheumatology [address] [place] [address] Gloria Smith MD [address] [place] [phone] documented as of this encounter Procedures Procedure Name Priority Date/Time Associated Diagnosis Comments C-REACTIVE PROTEIN Routine 10/09/2011 5: 43 PM CDT Rheumatoid arthritis (HCC) ERYTHROCYTE SEDIMENTATION RATE Routine 10/09/2011 5:43 PM CDT Rheumatoid arthritis (HCC) CBC W AUTO DIFFERENTIAL Routine 10/09/2011 5:43 PM CDT Rheumatoid arthritis (HCC) COMPREHENSIVE METABOLIC PANEL Routine 10/09/2011 5:43 PM CDT Rheumatoid arthritis (HCC) documented in this encounter Results * SED RATE WESTERGREN (10/09/2011 5:43 PM CDT) Erythrocyte Sedimentation Rate Westergren 6 0 - 15 mm/hr [facility] ACCOUNT BILL Blood specimen (specimen) BLOOD SPECIMEN / Unknown 10/09/2011 5:43 PM CDT 10/09/2011 10:15 PM CDT Narrative Resulting Agency Comment [facility] [address] ??[facility] [id number] Isidro Heredia MD LAB - HEMATOLOGY OR DERABLES [facility] ACCOUNT BILL * C-REACTIVE PROTEIN (10/09/2011 5:43 PM CDT) C-Reactive Protein 2.3 0.0 - 4.9 mg/L [facility] ACCOUNT BILL Blood specimen (specimen) BLOOD SPECIMEN / Unknown 10/09/2011 5:43 PM CDT 10/09/2011 10:15 PM CDT Narrative Resulting Agency Comment [facility] [address] ??[facility] [id number] Isidro Heredia MD LAB - CHEMISTRY ORD ERABLES [facility] ACCOUNT BILL * COMPREHENSIVE METABOLIC PANEL (10/09/2011 5:43 PM CDT) Glucose 95 65 - 99 mg/dL [facility] ACCOUNT BILL BUN 19 6 - 24 mg/dL [facility] ACCOUNT BILL Creatinine 0.98 0.76 - 1.27 mg/dL [facility] ACCOUNT BILL eGFR by MDRD 91 >59 mL/min/1.7 3 [facility] ACCOUNT BILL eGFR by MDRD 105 >59 mL/min/1.7 3 [facility] ACCOUNT BILL BUN/Creatinine Ratio 19 9 - 20 [facility] ACCOUNT BILL Sodium 139 134 - 144 mmol/L [facility] ACCOUNT BILL Potassium 4.4 3.5 - 5.2 mmol/L [facility] ACCOUNT BILL Chloride 99 97 - 108 mmol/L [facility] ACCOUNT BILL CO2 22 20 - 32 mmol/L [facility] ACCOUNT BILL Calcium 9.5 8.7 - 10.2 mg/dL [facility] ACCOUNT BILL Protein Total 7.4 6.0 - 8.5 g/dL [facility] ACCOUNT BILL Albumin 4.4 3.5 - 5.5 g/dL [facility] ACCOUNT BILL Globulin Total 3.0 1.5 - 4.5 g/dL [facility] ACCOUNT BILL Albumin/Globulin Ratio 1.5 1.1 - 2.5 [facility] ACCOUNT BILL Bilirubin Total 0.4 0.0 - 1.2 mg/dL [facility] ACCOUNT BILL Alkaline Phosphatase 105 25 - 150 IU/L [facility] ACCOUNT BILL AST 21 0 - 40 IU/L [facility] ACCOUNT BILL ALT 20 0 - 55 IU/L [facility] ACCOUNT BILL Blood specimen (specimen) BLOOD SPECIMEN / Unknown 10/09/2011 5:43 PM CDT 10/09/2011 10:15 PM CDT Narrative Resulting Agency Comment [facility] [address] ??[facility] [phone] Isidro Heredia MD LAB - CHEMISTRY ORD ERABLES [facility] ACCOUNT BILL * (ABNORMAL) CBC W AUTO DIFFERENTIAL (10/09/2011 5:43 PM CDT) WBC 10.6(H) 4.0 - 10.5 x10E3/uL [facility] ACCOUNT BILL RBC 4.44 4.14 - 5.80 x10E6/uL [facility] ACCOUNT BILL Comment:Please note refere nce interval change Hemoglobin 13.2 12.6 - 17.7 g/dL [facility] ACCOUNT BILL Comment:Please note refere nce interval change Hematocrit 39.3 37.5 - 51.0 % [facility] ACCOUNT BILL Comment:Please note refere nce interval change MCV 89 79 - 97 fL [facility] ACCOUNT BILL Comment:Please note refere nce interval change MCH 29.7 26.6 - 33.0 pg [facility] ACCOUNT BILL Comment:Please note refere nce interval change MCHC 33.6 31.5 - 35.7 g/dL [facility] ACCOUNT BILL Comment:Please note refere nce interval change RDW 16.4(H) 12.3 - 15.4 % [facility] ACCOUNT BILL Comment:Please note refere nce interval change Platelet Count 227 140 - 415 x10E3/uL [facility] ACCOUNT BILL Granulocytes % 63 40 - 74 % [facility] ACCOUNT BILL Lymphocytes % 29 14 - 46 % [facility] ACCOUNT BILL Monocytes % 5 4 - 13 % [facility] ACCOUNT BILL Eosinophils % 2 0 - 7 % [facility] ACCOUNT BILL Basophils % 1 0 - 3 % [facility] ACCOUNT BILL Immature Cells NOT NEEDED [facility] ACCOUNT BILL Comment:Ancillary determined the test is not needed Granulocytes Absolute 6.7 1.8 - 7.8 x10E3/uL [facility] ACCOUNT BILL [...] Blood specimen (specimen) BLOOD SPECIMEN / Unknown 10/09/2011 5:43 PM CDT 10/09/2011 10:15 PM CDT Narrative Resulting Agency Comment [facility] [address] ??[facility] [phone] Isidro Heredia MD LAB - HEMATOLOGY OR DERABLES [facility] ACCOUNT BILL documented in this encounter Visit Diagnoses Diagnosis Rheumatoid arthritis(714.0) (HCC)- Primary Rheumatoid arthritis Triceps tendonitis Other enthesopathy of elbow region LBP (low back pain) Lumbago documented in this encounter Care Teams Residential Sales Consultant Relationship Specialty Start Date End Date Nolberto Nicole MD PCP - General 07/21/08 12/30/13 Isidro Heredia MD Rheumatology 02/09/11 documented as of this encounter
--- OUTSIDE RECORDS SUMMARY | 2024-05-03 04:15 | XMS_ITS | Encounter Summary ---
Author Organization [facility] Address [address] [place] [address] Care Team Providers Care Etl Informatica Architect Name Role Phone Nolberto Nicole MD Primary Care Provider [phone] Isidro Heredia MD Unavailable [phone] Reason for Visit * Reason Comments Follow-up ra Shoulder Pain left Swelling Hand obdulia Pain Knee obdulia Encounter Details Date Type Department Care Team (Late st Contact Info) Description 02/13/2011 5:30 PM CDT Office Visit [facility] - Rheumatology [address] [place] [address] Isidro Heredia MD [address] [place] [id number] Rheumatoid arthritis (HCC) (Primary Dx); Triceps [...] Sign Reading Time Taken Comments Blood Pressure 122/86 02/13/2011 5:55 PM CDT Pulse 88 02/13/2011 5:55 PM CDT Temperature - - Respiratory Rate - - Oxygen Saturation - - Inhaled Oxygen Concentration - - Weight 109.8 kg (242 lb) 02/13/2011 5:55 PM CDT Height - - Body Mass Index 34.72 02/08/2009 5:43 PM CDT documented in this encounter Progress Notes * Isidro Heredia MD - 02/27/2011 6:34 AM CDTQuick Note: mtx ok Test for ra neg again * Isidro Heredia MD - 02/13/2011 5:57 PM CDT Subjective: Chalino Deng 50 y.o. male Chief Complaint Patient presents with ??? Follow-up ra ??? Shoulder Pain left ??? Swelling Hand obdulia ??? Pain Knee obdulia Current Outpatient Prescriptions on File Prior [...] No History Drug Use Not on file painful left shoulder mri pending On mtx humira pred 20 mg/d percoxcetnaprosyn His arthritis is flaring up Pain Level: 11/06 hands wrist knees Am stiffness 1 hr Global 710 Fatigue y Medication Side Effects n Review [...] No cyanosis, clubbing, edema OTHER: Objective: BP 122/86 Pulse 88 Wt 242 lb (109.77 kg) Tender Joint Count 2428 Swollen Joint Count 16 Muscles: Weak or Tender 0 Rheumatoid Nodules: [...] for Pain. Dispense: 120 Tab Refill: 0 Under sterile condition, 2 cc's of tac were injected in the left subacromial bursa.. Patient tolerated procedure well without complications. Follow up in office in 4 weeks * Rea Hagan MA - 02/13/2011 5:52 PM CDT Chief Complaint Patient presents with ??? Follow-up ra ??? Shoulder Pain left ??? Swelling Hand obdulia ??? Pain Knee obdulia BP 122/86 Pulse 88 Wt 242 lb (109.77 kg) documented in this encounter Plan of Treatment Upcoming Encounters Date Type Department Care Team (Late st Contact Info) Description 06/03/2024 1:00 PM STEEL TIER Appointment [facility] - Rheumatology [address] [place] [address] 06/03/2024 2:00 PM STEEL TIER Office Visit [facility] - Rheumatology [address] [place] [address] Gloria Smith MD [address] [place] [address] [phone] documented as of this encounter Procedures Procedure Name Priority Date/Time Associated Diagnosis Comments CYCLIC CITRUL PEPTIDE ANTIBODY IGG/IGA (CCP) Routine 02/13/2011 5:59 PM CDT Rheumatoid arthritis (HCC) RHEUMATOID FACTOR BLOOD QUANTITATIVE Routine 02/13/2011 5:59 PM CDT Rheumatoid arthritis (HCC) C-REACTIVE PROTEIN Routine 02/13/2011 5: 59 PM CDT Rheumatoid arthritis (HCC) ERYTHROCYTE SEDIMENTATION RATE Routine 02/13/2011 5:59 PM CDT Rheumatoid arthritis (HCC) CBC W AUTO DIFFERENTIAL Routine 02/13/2011 5:59 PM CDT Rheumatoid arthritis (HCC) COMPREHENSIVE METABOLIC PANEL Routine 02/13/2011 5:59 PM CDT Rheumatoid arthritis (HCC) documented in this encounter Results * CYCLIC CITRUL PEPTIDE ANTIBODY IGG/IGA (CCP) (02/13/2011 5:59 PM CDT) CCP Antibodies IgG/IgA 19 0 - 19 units [facility] ACCOUNT BILL Comment: ? Negative ? <20 ? Weak positive ?20 - 39 ? Moderate positive ??40 - 59 ? Strong positive ?>59 BLOOD SPECIMEN / Unknown 02/13/2011 5:59 PM CDT 02/13/2011 9:26 PM CDT Narrative Resulting Agency Comment [facility] [address] ??[facility] [phone] Isidro Heredia MD LAB - SEROLOGY MARII ARAUJO Performing Organization Address City/[facility]/[place] Co de Phone Number [facility] ACCOUNT BILL * RHEUMATOID FACTOR BLOOD QUANTITATIVE (02/13/2011 5:59 PM CDT) Pathologist [facility] Rheumatoid Factor 8.0 0.0 - 13.9 IU/mL [facility] ACCOUNT BILL Blood specimen (specimen) BLOOD SPECIMEN / Unknown 02/13/2011 5:59 PM CDT 02/13/2011 9:26 PM CDT Narrative Resulting Agency Comment [facility] [place] [address] [facility] ??[facility] [phone] Isidro Heredia MD LAB - CHEMISTRY CALEB FIELDS [facility] ACCOUNT BILL * (ABNORMAL) SED RATE WESTERGREN AUTO (02/13/2011 5:59 PM CDT) Erythrocyte Sedimentation Rate Westergren 24(H) 0 - 23 mm/hr [facility] ACCOUNT BILL Blood specimen (specimen) BLOOD SPECIMEN / Unknown 02/13/2011 5:59 PM CDT 02/13/2011 9:26 PM CDT Narrative Resulting Agency Comment [facility] ??[facility] [phone] Isidro Heredia MD LAB - HEMATOLOGY OR DERABLES [facility] ACCOUNT BILL * C-REACTIVE PROTEIN (02/13/2011 5:59 PM CDT) C-Reactive Protein 1.2 0.0 - 4.9 mg/L [facility] ACCOUNT BILL Blood specimen (specimen) BLOOD SPECIMEN / Unknown 02/13/2011 5:59 PM CDT 02/13/2011 9:26 PM CDT Narrative Resulting Agency Comment [facility] [address] ??[facility] [phone] Isidro Heredia MD LAB - CHEMISTRY ORD ERABLES Performing Organization Address City/[facility]/ZIP Co de Phone Number [facility] ACCOUNT BILL * (ABNORMAL) COMPREHENSIVE METABOLIC PANEL (02/13/2011 5:59 PM CDT) Glucose 106(H) 65 - 99 mg/dL [facility] ACCOUNT BILL BUN 23 6 - 24 mg/dL [facility] ACCOUNT BILL Creatinine 0.94 0.76 - 1.27 mg/dL [facility] ACCOUNT BILL eGFR by MDRD 95 >59 mL/min/1.7 3 [facility] ACCOUNT BILL eGFR by MDRD 110 >59 mL/min/1.7 3 [facility] ACCOUNT BILL Comment: Note: A persistent eGFR <60 mL/min/1.73 m2 (3 months or more) may indicate chronic kidney disease. An eGFR >59 mL/min/1.73 m2 with an elevated urine protein also may indicate chronic kidney disease. Calculated using CKD-EPI formula. BUN/Creatinine Ratio 24(H) 9 - 20 [facility] ACCOUNT BILL Sodium 139 135 - 145 mmol/L [facility] ACCOUNT BILL Potassium 3.9 3.5 [...] Blood specimen (specimen) BLOOD SPECIMEN / Unknown 02/13/2011 5:59 PM CDT 02/13/2011 9:26 PM CDT Narrative Resulting Agency Comment [facility] [address] ??[facility] [phone] Isidro Heredia MD LAB - CHEMISTRY ORD ERABLES [facility] ACCOUNT BILL * (ABNORMAL) CBC W AUTO DIFFERENTIAL (02/13/2011 5:59 PM CDT) WBC 11.3(H) 4.0 - 10.5 x10E3/uL [facility] ACCOUNT BILL RBC 4.13 4.10 - 5.60 x10E6/uL [facility] ACCOUNT BILL Hemoglobin 12.1(L) 12.5 - 17.0 g/dL [facility] ACCOUNT BILL Hematocrit 36.1 36.0 - 50.0 % [facility] ACCOUNT BILL MCV 87 80 - 98 fL [facility] ACCOUNT BILL MCH 29.3 27.0 - 34.0 pg [facility] ACCOUNT BILL MCHC 33.5 32.0 - 36.0 g/dL [facility] ACCOUNT BILL RDW 14.7 11.7 - 15.0 % [facility] ACCOUNT BILL Platelet Count 226 140 - 415 x10E3/uL [facility] ACCOUNT BILL Granulocytes % 60 40 - 74 % [facility] ACCOUNT BILL Lymphocytes % 30 14 - 46 % [facility] ACCOUNT [...] Blood specimen (specimen) BLOOD SPECIMEN / Unknown 02/13/2011 5:59 PM CDT 02/13/2011 9:26 PM CDT Narrative Resulting Agency Comment [facility] [address] ??[facility] [phone] Isidro Heredia MD LAB - HEMATOLOGY OR DERABLES [facility] ACCOUNT BILL documented in this encounter Visit Diagnoses Diagnosis Rheumatoid arthritis(714.0) (HCC)- Primary Rheumatoid arthritis Triceps tendonitis Other enthesopathy of elbow region Subacromial bursitis Other specified disorders of rotator cuff syndrome of shoulder and allied disorders documented in this encounter Care Teams Etl Informatic[employer] Architect Relationship Specialty Start Date End Date Nolberto Nicole MD PCP - General 07/21/08 12/30/13 Isidro Heredia MD Rheumatology 02/09/11 documented as of this encounter
--- OUTSIDE RECORDS SUMMARY | 2024-05-03 04:16 | XMS_ITS | Encounter Summary ---
Author Organization [facility] Address [address] [place] [address] [place] [address] Care Team Providers Care Civil Laboratory Technician Name Role Phone Nolberto Nicole MD Primary Care Provider [phone] Reason for Visit * Reason Comments Swelling Hand some swelling General Pain Scale: 7/10 Shoulder Pain rt Encounter Details Date Type Department Care Team (Late st Contact Info) Description 08/29/2010 5:00 PM CDT Office Visit [facility] - Rheumatology [address] [place] [address] [phone] Isidro Heredia MD [address] [place] [id number] Rheumatoid arthritis (HCC) (Primary Dx) Social History Tobacco Use [...] Sign Reading Time Taken Comments Blood Pressure 150/100 08/29/2010 5:32 PM CDT Pulse 80 08/29/2010 5:32 PM CDT Temperature - - Respiratory Rate - - Oxygen Saturation - - Inhaled Oxygen Concentration - - Weight 110.7 kg (244 lb) 08/29/2010 5:32 PM CDT Height - - Body Mass Index 35.01 02/08/2009 5:43 PM CDT documented in this encounter Progress Notes * Rea Hagan MA - 09/02/2010 11:48 AM CDTQuick Note: Sent lab letter to pt * Isidro Heredia MD - 09/01/2010 6:10 AM CDTQuick Note: mtx ok * Isidro Heredia MD - 08/29/2010 6:04 PM CDT Subjective: Chalino Deng 49 y.o. male Chief Complaint Patient presents with ??? Swelling Hand some swelling ??? General Pain Scale: 7/10 ??? Shoulder Pain rt Current outpatient prescriptions ordered prior to encounter Medication Sig Dispense Refill ??? fluconazole (DIFLUCAN) 100 MG tablet Take [...] 60 4 Patient Active Problem List Diagnoses Code ??? Rheumatoid Arthritis 714.0 ??? GERD (Gastroesophageal Reflux Disease) 530.81S ??? Osteopenia 733.90X ??? ANEMIA 285.9AA History Smoking status ??? Never Smoker Smokeless tobacco ??? Never Used History Alcohol Use No History Drug Use Not on file doing well Pain Level: 710 Am stiffness 2 hr Global 10 Fatigue y Medication Side Effects n Review of Systems: GENERAL: No fever, chills, sweats EARS: No wax or hearing loss. NOSE: No runny nose, bleeding, sinus drainage he has allergies MOUTH: No gingivitis or stomatitis GI: No [...] No cyanosis, clubbing, edema OTHER: Objective: BP 150/100 Pulse 80 Wt 244 lb (110.678 kg) Tender Joint Count 10/25 Swollen Joint Count 02/24 Muscles: Weak or Tender 0 Rheumatoid Nodules: 0 Physical Exam: HEENT perrla, hearing and vision intact, throat clear NECK- supple, no bruits LUNGS- clear, no rales , rhonchi or wheezes HEART- Normal Sinus Rhythm, no S3, S4 or murmurs ABDOMEN- soft, no masses or tenderness, no organomegaly EXTREMITIES- no edema CIRCULATION- Intact SKIN- no rash Assessment: Encounter Diagnoses Code Name Primary? 714.0 Rheumatoid arthritis Yes Plan: Plan Orders Placed This Encounter ??? CBC W AUTO DIFFERENTIAL ??? COMPREHENSIVE METABOLIC PANEL ??? C-REACTIVE PROTEIN ??? SED RATE WESTERGREN AUTO ??? oxycodone-acetaminophen (PERCOCET) 5-325 MG tablet Sig: Take 1 Tab by mouth every 6 hours as needed for Pain. Dispense: 120 Tab Refill: 0 ??? methotrexate (RHEUMATREX) 2.5 MG tablet Sig: Take 6 Tabs by mouth every 7 days. Dispense: 72 Tab Refill: 3 ??? adalimumab (HUMIRA PEN) 40 MG/0.8ML injection Sig: Inject 0.8 mL subcutaneously every 7 days. Dispense: 12 Kit Refill: 3 ??? predniSONE (DELTASONE) 10 MG tablet Sig: Take 1 Tab by mouth daily. In the am and 1 tab in the pm Dispense: 60 Tab Refill: 6 ??? naproxen (NAPROSYN) 500 MG tablet Sig: Take 1 Tab by mouth 2 times daily. Dispense: 180 Tab Refill: 3 ??? risedronate Sodium (ACTONEL) 150 MG tablet Sig: Take 1 Tab by mouth every 30 days. Dispense: 3 Tab Refill: 3 ??? cyclobenzaprine (FLEXERIL) 10 MG tablet Sig: Take 1 Tab by mouth at bedtime. Dispense: 30 Tab Refill: 6 ??? esomeprazole (NEXIUM) 40 MG capsule Sig: Take 1 Cap by mouth daily before breakfast. Dispense: 90 Cap Refill: 3 Follow up in office in 4 weeks * Rea Hagan MA - 08/29/2010 5:35 PM CDT Chief Complaint Patient presents with ??? Swelling Hand some swelling ??? General Pain Scale: 7/10 ??? Shoulder Pain rt BP 150/100 Pulse 80 Wt 244 lb (110.678 kg) documented in this encounter Plan of Treatment Upcoming Encounters Date Type Department Care Team (Late st Contact Info) Description 06/03/2024 1:00 PM REPAIR CLERK Appointment [facility] - Rheumatology [address] [place] [address] 06/03/2024 2:00 PM REPAIR CLERK Office Visit [facility] - Rheumatology [address] [place] [address] Gloria Smith MD [address] [place] [phone] documented as of this encounter Procedures Procedure Name Priority Date/Time Associated Diagnosis Comments C-REACTIVE PROTEIN Routine 08/29/2010 5: 44 PM CDT Rheumatoid arthritis (HCC) ERYTHROCYTE SEDIMENTATION RATE Routine 08/29/2010 5:44 PM CDT Rheumatoid arthritis (HCC) CBC W AUTO DIFFERENTIAL Routine 08/29/2010 5:44 PM CDT Rheumatoid arthritis (HCC) COMPREHENSIVE METABOLIC PANEL Routine 08/29/2010 5:44 PM CDT Rheumatoid arthritis (HCC) documented in this encounter Results * (ABNORMAL) SED RATE WESTERGREN AUTO (08/29/2010 5:44 PM CDT) Erythrocyte Sedimentation Rate Westergren 23(H) 0 - 15 mm/hr [facility] ACCOUNT BILL BLOOD SPECIMEN / Unknown 08/29/2010 5:44 PM CDT 08/29/2010 9:07 PM CDT Narrative Resulting Agency Comment [facility] ??[facility] [phone] Isidro Heredia MD LAB - HEMATOLOGY OR DERABLES [facility] ACCOUNT BILL * C-REACTIVE PROTEIN (08/29/2010 5:44 PM CDT) C-Reactive Protein 1.9 0.0 - 4.9 mg/L [facility] ACCOUNT BILL BLOOD SPECIMEN / Unknown 08/29/2010 5:44 PM CDT 08/29/2010 9:07 PM CDT Narrative Resulting Agency Comment [facility] ??[facility] [phone] Isidro Heredia MD LAB - CHEMISTRY ORD ERABLES [facility] ACCOUNT BILL * (ABNORMAL) COMPREHENSIVE METABOLIC PANEL (08/29/2010 5:44 PM CDT) Glucose 94 65 - 99 mg/dL [facility] ACCOUNT BILL BUN 28(H) 6 - 24 mg/dL [facility] ACCOUNT BILL Creatinine 1.06 0.76 - 1.27 mg/dL [facility] ACCOUNT BILL eGFR by MDRD 83 >59 mL/min/1.7 3 [facility] ACCOUNT BILL eGFR by MDRD 96 >59 mL/min/1.7 3 [facility] ACCOUNT BILL Comment: Note: A persistent eGFR <60 mL/min/1.73 m2 (3 months or more) may indicate chronic kidney disease. An eGFR >59 mL/min/1.73 m2 with an elevated urine protein also may indicate chronic kidney disease. Calculated using CKD-EPI formula. BUN/Creatinine Ratio 26(H) 9 - 20 [facility] ACCOUNT BILL Sodium 139 135 - 145 mmol/L [facility] ACCOUNT BILL Potassium 4.2 3.5 [...] 1.2 mg/dL [facility] ACCOUNT BILL Alkaline Phosphatase 99 25 - 150 IU/L [facility] ACCOUNT BILL AST 22 0 - 40 IU/L [facility] ACCOUNT BILL ALT 24 0 - 55 IU/L [facility] ACCOUNT BILL BLOOD SPECIMEN / Unknown 08/29/2010 5:44 PM CDT 08/29/2010 9:07 PM CDT Narrative Resulting Agency Comment [facility] [address] ??[facility] [phone] Isidro Heredia MD LAB - CHEMISTRY ORD ERABLES [facility] ACCOUNT BILL * (ABNORMAL) CBC W AUTO DIFFERENTIAL (08/29/2010 5:44 PM CDT) WBC 11.3(H) 4.0 - 10.5 x10E3/uL [facility] ACCOUNT BILL RBC 4.29 4.10 - 5.60 x10E6/uL [facility] ACCOUNT BILL Hemoglobin 12.8 12.5 - 17.0 g/dL [facility] ACCOUNT BILL Hematocrit 38.2 36.0 - 50.0 % [facility] ACCOUNT BILL MCV 89 80 - 98 fL [facility] ACCOUNT BILL MCH 29.8 27.0 - 34.0 pg [facility] ACCOUNT BILL MCHC 33.5 32.0 - 36.0 g/dL [facility] ACCOUNT BILL RDW 15.9(H) 11.7 - 15.0 % [facility] ACCOUNT BILL Platelet Count 216 140 - 415 x10E3/uL [facility] ACCOUNT BILL Granulocytes % 56 40 - 74 % [facility] ACCOUNT [...] the test is not needed Granulocytes Absolute 6.4 1.8 - 7.8 x10E3/uL [facility] ACCOUNT BILL Lymphocytes Absolute 3.7 0.7 - 4.5 x10E3/uL [facility] ACCOUNT BILL Monocytes Absolute 0.8 0.1 - 1.0 x10E3/uL [facility] ACCOUNT BILL Eosinophils Absolute 0.3 0.0 - 0.4 x10E3/uL [facility] ACCOUNT BILL Basophils Absolute 0.1 0.0 - 0.2 x10E3/uL [facility] ACCOUNT BILL Immature Granulocytes 0 0 - 1 % [facility] ACCOUNT BILL Immature Granulocytes Absolute 0.0 0.0 - 0.1 x10E3/uL [facility] ACCOUNT BILL nRBC NOT NEEDED [facility] ACCOUNT BILL Comment:Ancillary determined the test is not needed Comment Hematology NOT NEEDED [facility] ACCOUNT BILL Comment:Ancillary determined the test is not needed BLOOD SPECIMEN / Unknown 08/29/2010 5:44 PM CDT 08/29/2010 9:07 PM CDT Narrative Resulting Agency Comment [facility] [address] ??[facility] [phone] Isidro Heredia MD LAB - HEMATOLOGY OR DERABLES [facility] ACCOUNT BILL documented in this encounter Visit Diagnoses Diagnosis Rheumatoid arthritis(714.0) (HCC)- Primary Rheumatoid arthritis documented in this encounter Care Teams Civil Laboratory Technician Relationship Specialty Start Date End Date Nolberto Nicole MD PCP - General 07/21/08 12/30/13 documented as of this encounter
--- OUTSIDE RECORDS SUMMARY | 2024-05-03 04:16 | XMS_ITS | Encounter Summary ---
Author Organization [facility] Address [address] [place] [address] Care Team Providers Care Steel Sash Erector Name Role Phone Nolberto Nicole MD Primary Care Provider [phone] Reason for Visit * Reason Comments Shoulder Pain left Pain Scale: 9/1 0 Pain Knee Swelling fingers. and sore General Pain Scale: 7/10 Encounter Details Date Type Department Care Team (Late st Contact Info) Description 07/25/2010 4:45 PM CDT Office Visit [facility] - Rheumatology [address] [place] [address] Isidro Heredia MD [address] [place] [phone] Rheumatoid arthritis (HCC) (Primary Dx); Osteopenia; Subacromial bursitis Social History Tobacco Use Types [...] Sign Reading Time Taken Comments Blood Pressure 126/96 07/25/2010 5:03 PM CDT Pulse 104 07/25/2010 5:03 PM CDT Temperature - - Respiratory Rate - - Oxygen Saturation - - Inhaled Oxygen Concentration - - Weight 99.3 kg (219 lb) 07/25/2010 5:03 PM CDT Height - - Body Mass Index 31.42 02/08/2009 5:43 PM CDT documented in this encounter Progress Notes * Corry Santizo MA - 08/01/2010 11:10 AM CDTQuick Note: Letter mailed to patient regarding lab results. * Isidro Heredia MD - 08/01/2010 6:34 AM CDTQuick Note: mtx ok * Isidro Heredia MD - 07/25/2010 5:41 PM CDT Subjective: Chalino Deng 49 y.o. male Chief Complaint Patient presents with ??? Shoulder Pain left Pain Scale: 9/10 ??? Pain Knee ??? Swelling fingers. and sore ??? General Pain Scale: 7/10 Current outpatient prescriptions ordered prior to encounter Medication Sig Dispense Refill ??? fluconazole (DIFLUCAN) 100 MG tablet Take 1 Tab by mouth daily. 14 Tab 0 ??? methotrexate (RHEUMATREX) 2.5 MG tablet Take 6 Tabs by mouth every 7 days. 72 Tab 3 ??? predniSONE (DELTASONE) 10 MG tablet Take 1 Tab by mouth daily. In the am and 1 tab in the pm 60Tab 6 ??? adalimumab (HUMIRA PEN) 40 MG/0.8ML injection Inject 0.8 mL subcutaneously every 7 days. 12 3 ??? diclofenac sodium (VOLTAREN) 1 % gel Apply 1 g to affected area 4 times daily. 1 4 ??? triamcinolone acetonide (KENALOG-40) injection 2 mL by Intra-articular route once. 1 0 ??? esomeprazole (NEXIUM) 40 MG capsule Take 1 Cap by mouth daily before breakfast. 90 3 ??? cyclobenzaprine (FLEXERIL) 10 MG tablet Take 1 Tab by mouth at bedtime. 30 6 ??? naproxen (NAPROSYN) 500 MG tablet Take 1 Tab by mouth 2 times daily. 180 3 ??? terbinafine (LAMISIL) 250 MG tablet Take 1 Tab by mouth daily. 30 1 ??? HUMIRA PEN SC Inject 40 mg subcutaneously every 7 days. 16 3 ??? ACTONEL 150 MG TABS Take 150 mg by mouth every 30 days. ??? ZYRTEC 10 MG TABS Take 10 [...] No History Drug Use Not on file his fungal infection went away then came back on buttocks On humira Pain Level: 8/10 painful shoulders L>R Am stiffness 90 min Global 7/10 Fatigue y Medication Side Effects n Review of Systems: GENERAL: No fever, chills, sweats EARS: No wax or hearing loss. NOSE: No runny nose, bleeding, sinus drainage MOUTH: No gingivitis or stomatitis GI: No nausea vomiting, abdominal pain, weight loss, anorexia, diarrhea occ gerd HEART: No chest pain, palpitations, orthopnea, syncope LUNGS: No shortness of breath, cough, pleurisy, wheezing : No nocturia, dysuria, frequency, urgency, kidney stones. SKIN: No rash, itching, dry skin MS: NEURO: occ headaches, due to stress no seizures, dizziness, confusion, numbness, tingling HEME: No bruising or bleeding, swollen glands EXTREMITIES: No cyanosis, clubbing, edema OTHER: Objective: BP 126/96 Pulse 104 Wt 219 lb (99.338 kg) Tender Joint Count 20/28 Swollen Joint Count 12 Muscles: Weak or Tender 0 Rheumatoid Nodules: [...] of tac were injected in the left shoulder. Patient tolerated procedure well without complications. * Rea Hagan MA - 07/25/2010 5:03 PM CDT Chief Complaint Patient presents with ??? Shoulder Pain left Pain Scale: 9/10 ??? Pain Knee ??? Swelling fingers. and sore ??? General Pain Scale: 7/10 BP 126/96 Pulse 104 Wt 219 lb (99.338 kg) documented in this encounter Plan of Treatment Upcoming Encounters Date Type Department Care Team (Late st Contact Info) Description 06/03/2024 1:00 PM PUG MILL OPERATOR Appointment [facility] - Rheumatology [address] [place] [address] [phone] 06/03/2024 2:00 PM PUG MILL OPERATOR Office Visit [facility] - Rheumatology [address] [place] [address] [phone] Gloria Smith MD [address] [place] [address] [phone] documented as of this encounter Procedures Procedure Name Priority Date/Time Associated Diagnosis Comments C-REACTIVE PROTEIN Routine 07/25/2010 5: 28 PM CDT Rheumatoid arthritis (HCC) ERYTHROCYTE SEDIMENTATION RATE Routine 07/25/2010 5:28 PM CDT Rheumatoid arthritis (HCC) CBC W AUTO DIFFERENTIAL Routine 07/25/2010 5:28 PM CDT Rheumatoid arthritis (HCC) COMPREHENSIVE METABOLIC PANEL Routine 07/25/2010 5:28 PM CDT Rheumatoid arthritis (HCC) documented in this encounter Results * (ABNORMAL) SED RATE WESTERGREN AUTO (07/25/2010 5:28 PM CDT) Erythrocyte Sedimentation Rate Westergren 18(H) 0 - 15 mm/hr [facility] ACCOUNT BILL BLOOD SPECIMEN / Unknown 07/25/2010 5:28 PM CDT 07/25/2010 9:35 PM CDT Narrative Resulting Agency Comment [facility] ??[facility] [phone] Isidro Heredia MD LAB - HEMATOLOGY OR DERABLES Performing Organization Address City/[facility]/ZIP Co de Phone Number [facility] ACCOUNT BILL * C-REACTIVE PROTEIN (07/25/2010 5:28 PM CDT) C-Reactive Protein 2.4 0.0 - 4.9 mg/L [facility] ACCOUNT BILL BLOOD SPECIMEN / Unknown 07/25/2010 5:28 PM CDT 07/25/2010 9:35 PM CDT Narrative Resulting Agency Comment [facility] [place] [id number] [facility] ??[facility] [phone] Isidro Heredia MD LAB - CHEMISTRY ORD ERABLES Performing Organization Address City/[facility]/ZIP Co de Phone Number [facility] ACCOUNT BILL * COMPREHENSIVE METABOLIC PANEL (07/25/2010 5:28 PM CDT) Glucose 91 65 - 99 mg/dL [facility] ACCOUNT BILL BUN 14 6 - 24 mg/dL [facility] ACCOUNT BILL Creatinine 0.90 0.76 - 1.27 mg/dL [facility] ACCOUNT BILL eGFR by MDRD >59 >59 mL/min/1.7 3 [facility] ACCOUNT BILL eGFR by MDRD >59 >59 mL/min/1.7 3 [facility] ACCOUNT BILL Comment: Note: ??Persistent reduction for 3 months or more in an eGFR <60 mL/min/1.73 m2 defines CKD. ??Patients with eGFR values >/=60 mL/min/1.73 m2 may also have CKD if evidence of persistent proteinuria is present. Additional information may be found at www.[email or web address] ? . Effective August 01, 2010, Glom Filt Rate, Estimated, will be ??calculated using the CK-EPI formula. BUN/Creatinine Ratio 16 9 - 20 [facility] ACCOUNT BILL Sodium 140 135 - 145 mmol/L [facility] ACCOUNT BILL Potassium 4.1 3.5 - 5.2 mmol/L [facility] ACCOUNT BILL Chloride 104 97 - 108 mmol/L [facility] ACCOUNT BILL CO2 20 20 - 32 mmol/L [facility] ACCOUNT BILL Calcium 9.5 8.7 - 10.2 mg/dL [facility] ACCOUNT BILL Protein Total 7.5 6.0 - 8.5 g/dL [facility] ACCOUNT BILL Albumin 4.4 3.5 - 5.5 g/dL [facility] ACCOUNT BILL Globulin Total 3.1 1.5 - 4.5 g/dL [facility] ACCOUNT BILL Albumin/Globulin Ratio 1.4 1.1 - 2.5 [facility] ACCOUNT BILL Bilirubin Total 0.5 0.0 - 1.2 mg/dL [facility] ACCOUNT BILL Alkaline Phosphatase 103 25 - 150 IU/L [facility] ACCOUNT BILL AST 34 0 - 40 IU/L [facility] ACCOUNT BILL ALT 42 0 - 55 IU/L [facility] ACCOUNT BILL BLOOD SPECIMEN / Unknown 07/25/2010 5:28 PM CDT 07/25/2010 9:35 PM CDT Narrative Resulting Agency Comment [facility] [place] [address] [facility] ??[facility] [phone] Isidro Heredia MD LAB - CHEMISTRY ORD ERABLES [facility] ACCOUNT BILL * CBC W AUTO DIFFERENTIAL (07/25/2010 5:28 PM CDT) WBC 10.2 4.0 - 10.5 x10E3/uL [facility] ACCOUNT BILL RBC 4.60 4.10 - 5.60 x10E6/uL [facility] ACCOUNT BILL Hemoglobin 13.2 12.5 - 17.0 g/dL [facility] ACCOUNT BILL Hematocrit 40.0 36.0 - 50.0 % [facility] ACCOUNT BILL MCV 87 80 - 98 fL [facility] ACCOUNT BILL MCH 28.7 27.0 - 34.0 pg [facility] ACCOUNT BILL MCHC 33.0 32.0 - 36.0 g/dL [facility] ACCOUNT BILL RDW 15.0 11.7 - 15.0 % [facility] ACCOUNT BILL [...] is not needed BLOOD SPECIMEN / Unknown 07/25/2010 5:28 PM CDT 07/25/2010 9:35 PM CDT Narrative Resulting Agency Comment [facility] [address] ??[facility] [phone] Isidro Heredia MD LAB - HEMATOLOGY OR DERABLES [facility] ACCOUNT BILL documented in this encounter Visit Diagnoses Diagnosis Rheumatoid arthritis(714.0) (HCC)- Primary Rheumatoid arthritis Osteopenia Disorder of bone and cartilage, unspecified Subacromial bursitis Other specified disorders of rotator cuff syndrome of shoulder and allied disorders documented in this encounter Care Teams Steel Sash Erector Relationship Specialty Start Date End Date Nolberto Nicole MD PCP - General 07/21/08 12/30/13 documented as of this encounter
--- OUTSIDE RECORDS SUMMARY | 2024-05-03 04:16 | XMS_ITS | Encounter Summary ---
Author Organization [facility] Address [address] [place] [address] [place] [address] Care Team Providers Care Manager Facility Name Role Phone Nolberto Nicole MD Primary Care Provider [phone] Reason for Visit * Reason Comments Rheumatoid Arthritis Encounter Details Date Type Department Care Team ([facility] Contact Info) Description 09/28/2008 Office Visit [facility] - Rheumatology [address] [place] [address] [phone] Isidro Heredia MD [address] [place], [place] [phone] Rheumatoid Arthritis (HCC) (Primary Dx) Social History Tobacco Use Types Packs/Day Years Used Date Smoking Tobacco: Never Alcohol Use Standard Drinks/Week Comments No 0 (1 standard drink = 0.6 oz pur e alcohol) Sex and Gender Information Value Date Recorded Sex Assigned at Not on file Gender Identity Not on file Sexual Orientation Not on file documented as of this encounter Progress Notes * Emily Salinas RN - 09/28/2008 8:58 AM CDT Called pt, cancelled OV today, DSR not in office, call office to reschedule documented in this encounter Plan of Treatment Upcoming Encounters Date Type Department Care Team ([facility] Contact Info) Description 06/03/2024 1:00 PM INFORMATION SYSTEMS AUDIT MANAGER Appointment [facility] - Rheumatology [address] [place] [phone] 06/03/2024 2:00 PM INFORMATION SYSTEMS AUDIT MANAGER Office Visit [facility] - Rheumatology [address] [place] [address] [phone] Gloria Smith MD [address] [place] [address] [phone] documented as of this encounter Visit Diagnoses Diagnosis Rheumatoid arthritis(714.0) ([facility])- Primary Rheumatoid arthritis documented in this encounter Care Teams Manager Facility Relationship Specialty Start Date End Date Nolberto Nicole MD PCP - General 07/21/08 12/30/13 documented as of this encounter
--- OUTSIDE RECORDS SUMMARY | 2024-05-03 04:16 | XMS_ITS | Encounter Summary ---
Author Organization [facility] Address [address] [place] [address] [place] [address] Care Team Providers Care Manager Portable Name Role Phone Nolberto Nicole MD Primary Care Provider [phone] Reason for Visit * Reason Onset Date Comments Follow-up 01/12/2009 Encounter Details Date Type Department Care Team (Late st Contact Info) Description 01/12/2009 Telephone [facility] - Rheumatology [address] [place] [address] [phone] Isidro Heredia MD [address] [place], [place] [phone] Follow-up Social History Tobacco Use Types Packs/Day [...] Telephone Encounter - Rea Hagan MA - 01/12/2009 11:48 AM CDT Informed Yamileth that our lab reordered the pt test so she can place the results back in the computer. * Telephone Encounter - Deysi Pisano - 01/12/2009 11:34 AM CDT Yamileth with [employer] called in and on 01/11/09 the patient had 4 lab test that was cancel. Heended up having them done anyway does the office want the results? Was he supposed to have them done? Please call and let her know. documented in this encounter Plan of Treatment Upcoming Encounters Date Type Department Care Team (Late st Contact Info) Description 06/03/2024 1:00 PM DIPLOMA PHARMACY TECHNICIAN Appointment [facility] - Rheumatology [address] [place] [address] [phone] 06/03/2024 2:00 PM DIPLOMA PHARMACY TECHNICIAN Office Visit [facility] - Rheumatology [address] [place] [phone] Gloria Smith MD [address] [place] [address] [phone] documented as of this encounter Visit Diagnoses Not on filedocumented in this encounter Care Teams Manager Portable Relationship Specialty Start Date End Date Nolberto Nicole MD PCP - General 07/21/08 12/30/13 documented as of this encounter
--- OUTSIDE RECORDS SUMMARY | 2024-05-03 04:16 | XMS_ITS | Encounter Summary ---
Author Organization [facility] Address [address] [place] [address] [place] [address] Care Team Providers Care Backup Operator Name Role Phone Noblerto Nicole MD Primary Care Provider [phone] Reason for Visit * Reason Comments Follow-up ra Encounter Details Date Type Department Care Team (Late st Contact Info) Description 06/07/2009 5:15 PM ALUMINUM POLISHER Office Visit [facility] - Rheumatology [address] [place] [address] [phone] Isidro Heredia MD [address] [place], [place] [phone] Rheumatoid Arthritis (HCC) (Primary Dx) Social History [...] Reading Time Taken Comments Blood Pressure 126/76 06/07/2009 5:18 PM ALUMINUM POLISHER Pulse 80 06/07/2009 5:18 PM ALUMINUM POLISHER Temperature - - Respiratory Rate - - Oxygen Saturation - - Inhaled Oxygen Concentration - - Weight 109.8 kg (242 lb) 06/07/2009 5:18 PM ALUMINUM POLISHER Height - - Body Mass Index 34.72 02/08/2009 5:43 PM CDT documented in this encounter Progress Notes * Isidro Heredia MD - 07/07/2009 9:09 PM CSTQuick Note: Mtx ok INUM POLISHER * Isidro Heredia MD - 06/07/2009 5:58 PM CST Subjective: Chalino Casey 48 y.o. male Chief Complaint Patient presents with ??? Follow-up ra Current outpatient prescriptions prior to encounter Medication Sig Dispense Refill ??? esomeprazole (NEXIUM) 40 MG capsule Take 1 Cap by mouth daily before breakfast. 90 3 ??? cyclobenzaprine (FLEXERIL) 10 MG tablet Take 1 Tab by mouth at bedtime. 30 6 ??? naproxen (NAPROSYN) 500 MG tablet Take 1 Tab by mouth 2 times daily. 180 3 ??? diclofenac sodium (VOLTAREN) 1 % gel Apply 2 g to affected area 4 times daily. 1 6 ??? Methotrexate (Anti-Rheumatic) 2.5 MG TABS Take 6 Tabs by mouth every 7 days. 72 3 ??? triamcinolone acetonide (KENALOG-40) injection 2 mL [...] by mouth 2 times daily. 60 4 ??? predniSONE (DELTASONE) 10 MG tablet Take 1 Tab by mouth daily. 30 4 Patient Active Problem List Diagnoses Code ??? Rheumatoid Arthritis 714.0 ??? GERD (Gastroesophageal Reflux Disease) 530.81S ??? Osteopenia 733.90X History Tobacco Use Never History Alcohol Use No History Drug Use Not on file doing more exercise Pain Level: 6/10 Am stiffness 3 hrs Global 610 Fatigue y Medication Side Effects n Review [...] No cyanosis, clubbing, edema OTHER: Objective: BP 126/76 Pulse 80 Wt 109.77 kg (242 lb) Tender Joint Count Swollen Joint Count 12/25 Muscles: Weak or Tender n Rheumatoid Nodules: n Physical Exam: HEENT perrla, hearing and vision intact, throat clear NECK- supple, no bruits LUNGS- clear, no rales , rhonchi or wheezes HEART- Normal Sinus Rhythm, no S3, S4 or murmurs ABDOMEN- soft, no masses or tenderness, no organomegaly EXTREMITIES- no edema CIRCULATION- Intact SKIN- no rash Assessment: Encounter Diagnoses Code Name Primary? 714.0 Rheumatoid Arthritis Yes Plan: Plan Orders Placed This Encounter ??? Cbc w auto differential ??? Comprehensive metabolic panel ??? C-reactive protein ??? Sed rate westergren auto ??? Oxycodone-acetaminophen 5-325 mg po tabs Sig: Take 1 Tab by mouth every 6 hours as needed for Pain. Dispense: 120 Refill: 0 DICTATED Follow up in office in 4 weeks Same meds INUM POLISHER * Rea Hagan MA - 06/07/2009 5:18 PM CST Chief Complaint Patient presents with ??? Follow-up ra BP 126/76 Pulse 80 Wt 109.77 kg (242 lb) INUM POLISHER documented in this encounter Miscellaneous Notes * Letter - Isidro Heredia MD - 08/13/2009 4:50 PM CDT June 07, 2009 RE: CHALINO CASEY : 1960 Nolberto Nicole MD [address] [place] [address] Nicole: This is a 48-year-old white male with: 1. Rheumatoid arthritis. His response to Humira 40 mg subcu every 2 weeks, methotrexate 15 mg every 7 days, Plaquenil 200 mg b.i.d., Voltaren Gel, and prednisone 10 mg daily, has been suboptimal. He had an inadequate response to several other biologics including Remicade, Orencia, and Rituxan. He continues to have synovitis and flare-ups. On physical exam: he has 21 tender joints and 12 swollen joints. There is no skin rash or rheumatoid nodules. Heart and lungs are normal. Office visits and LFTs for methotrexate toxicity will be continued every 4 weeks. 1. Chronic pain syndrome. On Percocet 5/325 q.i.d. p.r.n. 2. Osteoporosis. On Actonel 150 mg every month. 3. Bursitis, left shoulder. Inactive. Sincerely, Isidro Heredia M.D. Electronically Signed 08/13/2009 16:36:42 CDT DSR/MedQ #: [id number] documented in this encounter Plan of Treatment Upcoming Encounters Date Type Department Care Team (Late st Contact Info) Description 06/03/2024 1:00 PM ALUMINUM POLISHER Appointment [facility] - Rheumatology [address] [place] [phone] 06/03/2024 2:00 PM ALUMINUM POLISHER Office Visit [facility] - Rheumatology [address] [place] [address] Gloria Smith MD [address] [place] [phone] Scheduled Orders Name Type Priority Associated Diagnoses Orde r Schedule SED RATE WESTERGREN AUTO Lab Routine Rheumatoid Arthritis (HCC) Ordered: 06/07/2009 documented as of this encounter Procedures Procedure Name Priority Date/Time Associated Diagnosis Comments C-REACTIVE PROTEIN Routine 07/05/2009 6: 00 PM ALUMINUM POLISHER Rheumatoid Arthritis (HCC) CBC W AUTO DIFFERENTIAL Routine 07/05/2009 6:00 PM ALUMINUM POLISHER Rheumatoid Arthritis (HCC) COMPREHENSIVE METABOLIC PANEL Routine 07/05/2009 6:00 PM ALUMINUM POLISHER Rheumatoid Arthritis (HCC) documented in this encounter Results * (ABNORMAL) C-REACTIVE PROTEIN (07/05/2009 6:00 PM ALUMINUM POLISHER) C-Reactive Protein 5.7(H) 0.0 - 4.9 mg/L [facility] ACCOUNT BILL BLOOD SPECIMEN / Unknown 07/05/2009 6:00 PM ALUMINUM POLISHER 07/05/2009 10:21 PM ALUMINUM POLISHER Narrative Resulting Agency Comment [facility] [address] ??[facility] [phone] Isidro Heredia MD LAB - CHEMISTRY ORD ERABLES [facility] ACCOUNT BILL * COMPREHENSIVE METABOLIC PANEL (07/05/2009 6:00 PM ALUMINUM POLISHER) Glucose 88 65 - 99 mg/dL [facility] ACCOUNT BILL BUN 19 5 - 26 mg/dL [facility] ACCOUNT BILL Creatinine 1.01 0.76 - 1.27 mg/dL [facility] ACCOUNT BILL [...] present. Additional information may be found at [email or web address]. BUN/Creatinine Ratio 19 8 - 27 [facility] ACCOUNT BILL Sodium 141 135 - 145 mmol/L [facility] ACCOUNT BILL Potassium 4.3 3.5 - 5.2 mmol/L [facility] ACCOUNT BILL Chloride 103 97 - 108 mmol/L [facility] ACCOUNT BILL CO2 22 20 - 32 mmol/L [facility] ACCOUNT BILL Calcium 9.8 8.7 - 10.2 mg/dL [facility] ACCOUNT BILL Protein Total 7.3 6.0 - 8.5 g/dL [facility] ACCOUNT BILL Albumin 4.3 3.5 - 5.5 g/dL [facility] ACCOUNT BILL Globulin Total 3.0 1.5 - 4.5 g/dL [facility] ACCOUNT BILL Albumin/Globulin Ratio 1.4 1.1 - 2.5 [facility] ACCOUNT BILL Bilirubin Total 0.3 0.1 - 1.2 mg/dL [facility] ACCOUNT BILL Alkaline Phosphatase 106 25 - 150 IU/L [facility] ACCOUNT BILL AST 26 0 - 40 IU/L [facility] ACCOUNT BILL ALT 34 0 - 55 IU/L [facility] ACCOUNT BILL BLOOD SPECIMEN / Unknown 07/05/2009 6:00 PM ALUMINUM POLISHER 07/05/2009 10:21 PM ALUMINUM POLISHER Narrative Resulting Agency Comment [facility] [address] ??[facility] [phone] Isidro Heredia MD LAB - CHEMISTRY ORD ERABLES [facility] ACCOUNT BILL * (ABNORMAL) CBC W AUTO DIFFERENTIAL (07/05/2009 6:00 PM ALUMINUM POLISHER) WBC 11.2(H) 4.0 - 10.5 x10E3/uL [facility] ACCOUNT BILL RBC 4.53 4.10 - 5.60 x10E6/uL [facility] ACCOUNT BILL Hemoglobin 13.6 12.5 - 17.0 g/dL [facility] ACCOUNT BILL Hematocrit 41.1 36.0 - 50.0 % [facility] ACCOUNT BILL MCV 91 80 - 98 fL [facility] ACCOUNT BILL MCH 30.1 27.0 - 34.0 pg [facility] ACCOUNT BILL MCHC 33.2 32.0 - 36.0 g/dL [facility] ACCOUNT BILL RDW 14.4 11.7 - 15.0 % [facility] ACCOUNT BILL Platelet Count 186 140 - 415 x10E3/uL [facility] ACCOUNT BILL Granulocytes % 52 40 - 74 % [facility] ACCOUNT BILL Lymphocytes % 38 14 - 46 % [facility] ACCOUNT BILL Monocytes % 7 4 - 13 % [facility] ACCOUNT BILL Eosinophils % 3 0 - 7 % [facility] ACCOUNT BILL Basophils % 0 0 - 3 % [facility] ACCOUNT BILL Immature Cells NOT AVAIL. [facility] ACCOUNT BILL Granulocytes Absolute 5.8 1.8 - 7.8 x10E3/uL [facility] ACCOUNT BILL Lymphocytes Absolute 4.3 0.7 - 4.5 x10E3/uL [facility] ACCOUNT BILL Monocytes Absolute 0.8 0.1 - 1.0 x10E3/uL [facility] ACCOUNT BILL Eosinophils Absolute 0.3 0.0 - 0.4 x10E3/uL [facility] ACCOUNT BILL Basophils Absolute 0.0 0.0 - 0.2 x10E3/uL [facility] ACCOUNT BILL Immature Granulocytes NOT AVAIL. [facility] ACCOUNT BILL Immature Granulocytes Absolute NOT AVAIL. [facility] ACCOUNT BILL nRBC NOT AVAIL. [facility] ACCOUNT BILL Comment Hematology NOT AVAIL. [facility] ACCOUNT BILL BLOOD SPECIMEN / Unknown 07/05/2009 6:00 PM ALUMINUM POLISHER 07/05/2009 10:21 PM ALUMINUM POLISHER Narrative [facility] ACCOUNT BILL - 07/06/2009 7:23 AM ALUMINUM POLISHER Additional Result Information IMMATURE CELLS ([facility]): RESULT NOT AVAILABLE IMMATURE GRANULOCYTES ([facility]): RESULT NOT AVAILABLE IMMATURE GRANS (ABS) ([facility]): RESULT NOT AVAILABLE NRBC ([facility]): RESULT NOT AVAILABLE HEMATOLOGY COMMENTS: ??BLOOD,URINE ([facility]): RESULT NOT AVAILABLE Resulting Agency Comment [facility] [address] ??[facility] [phone] Isidro Heredia MD LAB - HEMATOLOGY OR DERABLES [facility] ACCOUNT BILL documented in this encounter Visit Diagnoses Diagnosis Rheumatoid arthritis(714.0) (HCC)- Primary Rheumatoid arthritis documented in this encounter Care Teams Backup Operator Relationship Specialty Start Date End Date Nolberto Nicole MD PCP - General 07/21/08 12/30/13 documented as of this encounter
--- OUTSIDE RECORDS SUMMARY | 2024-05-03 04:16 | XMS_ITS | Encounter Summary ---
Author Organization [facility] Address [address] [place] [address] [place] [address] Care Team Providers Care Search Strategist Name Role Phone Nolberto Nicole MD Primary Care Provider [phone] Reason for Visit * Reason Onset Date Comments MEDICATION REFILL 10/26/2009 Encounter Details Date Type Department Care Team (Late st Contact Info) Description 10/26/2009 Refill [facility] Medical [facility] - Rheumatology [address] [place] [address] [phone] Isidro Heredia MD [address] [place] [address] [phone] MEDICATION REFILL Social History Tobacco Use Types [...] Telephone Encounter - Rea Hagan MA - 10/27/2009 12:55 PM CDT Spoke with pt he states he takes his Humira every week. Rx sent to pharm * Telephone Encounter - Michelle Palomo - 10/27/2009 9:17 AM CDT Pt 's called to let Rea know that pt takes his Humira every other week unless he is hurt thenhe takes it once a week. Due to doctor orders. * Telephone Encounter - Rea Hagan MA - 10/27/2009 8:36 AM CDT Lm with to have pt to call the office re Humira documented in this encounter Plan of Treatment Upcoming Encounters Date Type Department Care Team (Late st Contact Info) Description 06/03/2024 1:00 PM FEED MANAGEMENT ADVISOR Appointment [facility] - Rheumatology [address] [place] [address] 06/03/2024 2:00 PM FEED MANAGEMENT ADVISOR Office Visit [facility] - Rheumatology [address] [place] [address] Gloria Smith MD [address] [place] [address] [phone] documented as of this encounter Visit Diagnoses Not on filedocumented in this encounter Care Teams Search Strategist Relationship Specialty Start Date End Date Nolberto Nicole MD PCP - General 07/21/08 12/30/13 documented as of this encounter
--- OUTSIDE RECORDS SUMMARY | 2024-05-03 04:16 | XMS_ITS | Encounter Summary ---
Author Organization [facility] Address [address] [place] [address] [place] [address] Care Team Providers Care Polish Maker Name Role Phone Nolberto Nicole MD Primary Care Provider [phone] Reason for Visit * Reason Comments Follow-up ra Fatigue Encounter Details Date Type Department Care Team (Late st Contact Info) Description 02/08/2009 5:00 PM CDT Office Visit [facility] [employer] [facility] - Rheumatology [address] [place] [phone] Isidro Heredia MD [address] [place] [address] [phone] Rheumatoid Arthritis (HCC) (Primary Dx); Bursitis, Subacromial/Subdelt oid Social History Tobacco Use Types Packs/Day Years [...] Sign Reading Time Taken Comments Blood Pressure 124/76 02/08/2009 5:43 PM CDT Pulse 96 02/08/2009 5:43 PM CDT Temperature - - Respiratory Rate - - Oxygen Saturation - - Inhaled Oxygen Concentration - - Weight 130.2 kg (287 lb) 02/08/2009 5:43 PM CDT Height 177.8 cm (5' 10 ) 02/08/2009 5:43 PM CDT Body Mass Index 41.18 02/08/2009 5:43 PM CDT documented in this encounter Progress Notes * Isidro Heredia MD - 02/08/2009 6:17 PM CDT .DSRSYNSubjective: Chalino Deng 48 y.o. male Chief Complaint Patient presents with ??? Follow-up ra ??? Fatigue Current outpatient prescriptions prior to encounter Medication Sig Dispense Refill ??? terbinafine (LAMISIL) 250 MG tablet Take [...] 1 Tab by mouth daily. 30 4 ??? cyclobenzaprine (FLEXERIL) 10 MG tablet Take 1 Tab by mouth at bedtime. 30 6 ??? naproxen (NAPROSYN) 500 MG tablet Take 500 mg by mouth 2 times daily. Patient Active Problem List Diagnoses Code ??? Rheumatoid Arthritis 714.0 ??? GERD (Gastroesophageal Reflux Disease) 530.81S ??? Osteopenia 733.90X History Tobacco Use Never History Alcohol Use No History Drug Use Not on file doing ok until last week then worse Getting pt on his neck and took katiana for 2 months Pain Level: 9/10 Am stiffness 1hr Global 9/10 Fatigue y Medication Side Effects n Review [...] No cyanosis, clubbing, edema OTHER: Objective: BP 124/76 Pulse 96 Ht 1.778 m (5' 10 ) Wt 130.182 kg (287 lb) Tender Joint Count 26 Swollen Joint Count 12 Muscles: Weak or [...] auto ??? Oxycodone-acetaminophen 5-325 mg po tabs (discontinued) ??? Esomeprazole magnesium 40 mg po cpdr ??? Methotrexate (anti-rheumatic) 2.5 mg po tabs ??? Oxycodone-acetaminophen 5-325 mg po tabs Follow up in office in 4 weeks Under sterile condition, 2 cc's of 80 mg TAC were injected in the rt subacromial bursa. 0 cc's of synovial fluid were aspirated. Patient tolerated procedure well without complications. * Rea Hagan MA - 02/08/2009 5:47 PM CDT Chief Complaint Patient presents with ??? Follow-up ra ??? Fatigue BP 124/76 Pulse 96 Wt 83.462 kg (184 lb) documented in this encounter Plan of Treatment Upcoming Encounters Date Type Department Care Team (Late st Contact Info) Description 06/03/2024 1:00 PM DIRECTOR INPATIENT HEADACHE PROGRAM Appointment [facility] - Rheumatology [address] [place] [phone] 06/03/2024 2:00 PM DIRECTOR INPATIENT HEADACHE PROGRAM Office Visit [facility] - Rheumatology [address] [place] [phone] Gloria Smith MD [address] [place] [address] [phone] Scheduled Orders Name Type Priority Associated Diagnoses Orde r Schedule CBC W AUTO DIFFERENTIAL Lab Routine Rheumatoid Arthritis ([facility]) Ordered: 02/08/2009 COMPREHENSIVE METABOLIC PANEL Lab Routine Rheumatoid Arthritis ([facility]) Ordered: 02/08/2009 C-REACTIVE PROTEIN Lab Routine Rheumatoid Arthritis ([facility]) Ordered: 02/08/2009 documented as of this encounter Procedures Procedure Name Priority Date/Time Associated Diagnosis Comments ERYTHROCYTE SEDIMENTATION RATE Routine 02/08/2009 6:07 PM CDT Rheumatoid Arthritis ([facility]) documented in this encounter Results * SED RATE WESTERGREN AUTO (02/08/2009 6:07 PM CDT) Erythrocyte Sedimentation Rate Westergren 7 0 - 15 mm/hr [facility] ACCOUNT BILL BLOOD SPECIMEN / Unknown 02/08/2009 6:07 PM CDT 02/08/2009 9:30 PM CDT Narrative Resulting Agency Comment [facility] [address] ??[facility] [phone] Isidro Heredia MD LAB - HEMATOLOGY OR DERABLES [facility] ACCOUNT BILL documented in this encounter Visit Diagnoses Diagnosis Rheumatoid arthritis(714.0) ([facility])- Primary Rheumatoid arthritis Bursitis, subacromial/subdeltoid Other specified disorders of rotator cuff syndrome of shoulder and allied disorders documented in this encounter Care Teams Polish Maker Relationship Specialty Start Date End Date Nolberto Nicole MD PCP - General 07/21/08 12/30/13 documented as of this encounter
--- OUTSIDE RECORDS SUMMARY | 2024-05-03 04:16 | XMS_ITS | Encounter Summary ---
Author Organization [facility] Address [address] [place] [place] [address] Care Team Providers Care Drug Purchaser Name Role Phone Nolberto Nicole MD Primary Care Provider Reason for Visit * Reason Comments Shoulder Pain rt Pain Hand rt General went to [facility] for E coli. this is resolved, treated with antibx Encounter Details Date Type Department Care Team (Late st Contact Info) Description 04/18/2010 3:15 PM SECURITY SYSTEMS ADMINISTRATOR Office Visit [facility] - Rheumatology [address] [place] [address] Isidro Heredia MD [address] [place] [phone] Rheumatoid arthritis (HCC) (Primary Dx) Social [...] Sign Reading Time Taken Comments Blood Pressure 124/84 04/18/2010 4:17 PM SECURITY SYSTEMS ADMINISTRATOR Pulse 80 04/18/2010 4:17 PM SECURITY SYSTEMS ADMINISTRATOR Temperature - - Respiratory Rate - - Oxygen Saturation - - Inhaled Oxygen Concentration - - Weight 111.6 kg (246 lb) 04/18/2010 4:17 PM SECURITY SYSTEMS ADMINISTRATOR Height - - Body Mass Index 35.3 02/08/2009 5:43 PM CDT documented in this encounter Progress Notes * Rea Hagan MA - 04/25/2010 6:50 PM CSTQuick Note: Sent lab letter to pt RITY SYSTEMS ADMINISTRATOR * Isidro Heredia MD - 04/23/2010 8:43 PM CSTQuick Note: mtx ok RITY SYSTEMS ADMINISTRATOR * Isidro Heredia MD - 04/18/2010 4:52 PM CST Subjective: Chalino Deng 49 y.o. male Chief Complaint Patient presents with ??? Shoulder Pain rt ??? Pain Hand rt ??? General went to [facility] for E coli. this is resolved, treated with antibx Current outpatient prescriptions ordered prior to encounter Medication Sig Dispense Refill ??? predniSONE (DELTASONE) [...] ??? Osteopenia 733.90X ??? ANEMIA 285.9AA History Tobacco Use Never History Alcohol Use No History Drug Use Not on file he has not been here for 3 mo bec of various issues Pain Level: 8/10 Am stiffness 1 hr Global 7/10 Fatigue [...] No cyanosis, clubbing, edema OTHER: Objective: BP 124/84 Pulse 80 Wt 246 lb (111.585 kg) Tender Joint Count Swollen Joint Count [...] protein ??? Sed rate westergren auto ??? Methotrexate (rheumatrex) 2.5 mg tablet Sig: Take 6 Tabs by mouth every 7 days. Dispense: 72 Tab Refill: 3 ??? Oxycodone-acetaminophen (percocet) 5-325 mg tablet Sig: Take 1 Tab by mouth every 6 hours as needed for Pain. Dispense: 120 Tab Refill: 0 Follow up in office in 4 mo RITY SYSTEMS ADMINISTRATOR * Rea Hagan MA - 04/18/2010 4:21 PM CST Chief Complaint Patient presents with ??? Shoulder Pain rt ??? Pain Hand rt ??? General went to [facility] for E coli. this is resolved, treated with antibx BP 124/84 Pulse 80 Wt 246 lb (111.585 kg) RITY SYSTEMS ADMINISTRATOR documented in this encounter Plan of Treatment Upcoming Encounters Date Type Department Care Team (Late st Contact Info) Description 06/03/2024 1:00 PM SECURITY SYSTEMS ADMINISTRATOR Appointment [facility] - Rheumatology [address] [place] [address] 06/03/2024 2:00 PM SECURITY SYSTEMS ADMINISTRATOR Office Visit [facility] - Rheumatology [address] [place] [address] Gloria Smith MD [address] [place] [phone] documented as of this encounter Procedures Procedure Name Priority Date/Time Associated Diagnosis Comments C-REACTIVE PROTEIN Routine 04/18/2010 4: 46 PM SECURITY SYSTEMS ADMINISTRATOR Rheumatoid arthritis (HCC) ERYTHROCYTE SEDIMENTATION RATE Routine 04/18/2010 4:46 PM SECURITY SYSTEMS ADMINISTRATOR Rheumatoid arthritis (HCC) CBC W AUTO DIFFERENTIAL Routine 04/18/2010 4:46 PM SECURITY SYSTEMS ADMINISTRATOR Rheumatoid arthritis (HCC) COMPREHENSIVE METABOLIC PANEL Routine 04/18/2010 4:46 PM SECURITY SYSTEMS ADMINISTRATOR Rheumatoid arthritis (HCC) documented in this encounter Results * (ABNORMAL) SED RATE WESTERGREN AUTO (04/18/2010 4:46 PM SECURITY SYSTEMS ADMINISTRATOR) Erythrocyte Sedimentation Rate Westergren 19(H) 0 - 15 mm/hr [facility] ACCOUNT BILL BLOOD SPECIMEN / Unknown 04/18/2010 4:46 PM SECURITY SYSTEMS ADMINISTRATOR 04/18/2010 10:29 PM SECURITY SYSTEMS ADMINISTRATOR Narrative Resulting Agency Comment [facility] [place] [address] ??[facility] [phone] Isidro Heredia MD LAB - HEMATOLOGY OR DERABLES [facility] ACCOUNT BILL * C-REACTIVE PROTEIN (04/18/2010 4:46 PM SECURITY SYSTEMS ADMINISTRATOR) C-Reactive Protein 4.5 0.0 - 4.9 mg/L [facility] ACCOUNT BILL BLOOD SPECIMEN / Unknown 04/18/2010 4:46 PM SECURITY SYSTEMS ADMINISTRATOR 04/18/2010 10:29 PM SECURITY SYSTEMS ADMINISTRATOR Narrative Resulting Agency Comment [facility] [place] [address] ??[place] [phone] Isidro Heredia MD LAB - CHEMISTRY ORD ERABLES Performing Organization Address City/[facility] Co de Phone Number [facility] ACCOUNT BILL * (ABNORMAL) COMPREHENSIVE METABOLIC PANEL (04/18/2010 4:46 PM SECURITY SYSTEMS ADMINISTRATOR) Glucose 105(H) 65 - 99 mg/dL [facility] ACCOUNT BILL BUN 27(H) 5 - 26 mg/dL [facility] ACCOUNT BILL Comment: ? Effective May 09, 2010, BUN reference interval ? will be changing to: ? 0 - 12 months ? 3 - 18 mg/dL ? 1 - 17 years ?5 - 18 mg/dL ?18 - 39 years ?6 - 20 mg/dL ?40 - 59 years ?6 - 24 mg/dL ?60 - 89 years ?8 - 27 mg/dL ? > 89 years ? 10 - 36 mg/dL Creatinine 0.96 0.76 - 1.27 mg/dL [facility] [...] may be found at [email or web address]. BUN/Creatinine Ratio 28(H) 8 - 27 [facility] ACCOUNT BILL Comment: ? Effective May 09, 2010, Bun/Creatinine Ratio ? reference interval will be changing to: ?Age ?Male ? Female ?<18 years ? 9 - 27 ?9 - 25 ?18 - 39 years ? 8 - 19 ?8 - 20 ?40 - 59 years ? 9 - 20 ?9 - 23 ?60 years and ?older ?10 - ? 11 - Sodium 138 135 - 145 mmol/L [facility] ACCOUNT BILL Potassium 4.1 3.5 - 5.2 mmol/L [facility] ACCOUNT BILL Chloride 103 97 - 108 mmol/L [facility] ACCOUNT BILL CO2 23 20 - 32 mmol/L [facility] ACCOUNT BILL Calcium 8.9 8.7 - 10.2 mg/dL [facility] ACCOUNT BILL [...] - 150 IU/L [facility] ACCOUNT BILL AST 23 0 - 40 IU/L [facility] ACCOUNT BILL ALT 28 0 - 55 IU/L [facility] ACCOUNT BILL BLOOD SPECIMEN / Unknown 04/18/2010 4:46 PM SECURITY SYSTEMS ADMINISTRATOR 04/18/2010 10:29 PM SECURITY SYSTEMS ADMINISTRATOR Narrative Resulting Agency Comment [facility] [place] [address] ??[facility] [phone] Isidro Heredia MD LAB - CHEMISTRY ORD ERABLES [facility] ACCOUNT BILL * CBC W AUTO DIFFERENTIAL (04/18/2010 4:46 PM SECURITY SYSTEMS ADMINISTRATOR) WBC 9.9 4.0 - 10.5 x10E3/uL [facility] ACCOUNT BILL RBC 4.17 4.10 - 5.60 x10E6/uL [facility] ACCOUNT BILL Hemoglobin 12.5 12.5 - 17.0 g/dL [facility] ACCOUNT BILL Hematocrit 37.4 36.0 - 50.0 % [facility] ACCOUNT BILL MCV 90 80 - 98 fL [facility] ACCOUNT BILL MCH 30.0 27.0 - 34.0 pg [facility] ACCOUNT BILL MCHC 33.4 32.0 - 36.0 g/dL [facility] ACCOUNT BILL RDW 15.0 11.7 - 15.0 % [facility] ACCOUNT BILL Platelet Count 196 140 - 415 x10E3/uL [facility] ACCOUNT BILL Granulocytes % 66 40 - 74 % [facility] ACCOUNT BILL Lymphocytes % 26 14 - 46 % [facility] ACCOUNT [...] is not needed BLOOD SPECIMEN / Unknown 04/18/2010 4:46 PM SECURITY SYSTEMS ADMINISTRATOR 04/18/2010 10:29 PM SECURITY SYSTEMS ADMINISTRATOR Narrative Resulting Agency Comment [facility] [place] [address] ??[facility] [phone] Isidro Heredia MD LAB - HEMATOLOGY OR DERABLES [facility] ACCOUNT BILL documented in this encounter Visit Diagnoses Diagnosis Rheumatoid arthritis(714.0) ([facility])- Primary Rheumatoid arthritis documented in this encounter Care Teams Drug Purchaser Relationship Specialty Start Date End Date Nolberto Nicole MD PCP - General 07/21/08 12/30/13 documented as of this encounter
--- OUTSIDE RECORDS SUMMARY | 2024-05-03 04:16 | XMS_ITS | Encounter Summary ---
Author Organization [facility] Address [address] [place] [address] Care Team Providers Care Ultrasonic Tester Name Role Phone Nolberto Nicole MD Primary Care Provider [phone] Encounter Details Date Type Department Care Team (Late Contact Info) Description 03/08/2009 Orders Only [facility] - Rheumatology [address] [place] [phone] Isidro Heredia MD [address] [place] [address] [phone] Social History Tobacco Use Types Packs/Day Years Used Date Smoking Tobacco: Never Alcohol Use Standard Drinks/Week Comments No 0 (1 standard drink = 0.6 oz pur e alcohol) Sex and Gender Information Value Date Recorded Sex Assigned at Not on file Gender Identity Not on file Sexual Orientation Not on file documented as of this encounter Progress Notes * Isidro Heredia MD - 03/14/2009 6:31 PM CSTQuick Note: Bs 104 RTISING SALES MANAGER documented in this encounter Plan of Treatment Upcoming Encounters Date Type Department Care Team (Late Contact Info) Description 06/03/2024 1:00 PM ADVERTISING SALES MANAGER Appointment [facility] - Rheumatology [address] [place] [address] [phone] 06/03/2024 2:00 PM ADVERTISING SALES MANAGER Office Visit [facility] - Rheumatology [address] [place] [address] [phone] Gloria Smith MD [address] [place] [phone] documented as of this encounter Procedures Procedure Name Priority Date/Time Associated Diagnosis Comments CBC W AUTO DIFFERENTIAL 03/08/2009 4:28 PM ADVERTISING SALES MANAGER COMPREHENSIVE METABOLIC PANEL 03/08/2009 4:28 PM ADVERTISING SALES MANAGER documented in this encounter Results * (ABNORMAL) COMPREHENSIVE METABOLIC PANEL (03/08/2009 4:28 PM ADVERTISING SALES MANAGER) Glucose 104(H) 65 - 99 mg/dL [facility] ACCOUNT BILL BUN 18 5 - 26 mg/dL [facility] ACCOUNT BILL Creatinine 0.94 0.76 [...] 8 - 27 [facility] ACCOUNT BILL Sodium 138 135 - 145 mmol/L [facility] ACCOUNT BILL Potassium 4.7 3.5 - 5.2 mmol/L [facility] ACCOUNT BILL Chloride 103 97 - 108 mmol/L [facility] ACCOUNT BILL CO2 22 20 - 32 mmol/L [facility] ACCOUNT BILL Calcium 9.4 8.5 - 10.6 mg/dL [facility] ACCOUNT BILL Protein Total 7.2 6.0 - 8.5 g/dL [facility] ACCOUNT BILL Albumin 4.4 3.5 - 5.5 g/dL [facility] ACCOUNT BILL Globulin Total 2.8 1.5 - 4.5 g/dL [facility] ACCOUNT BILL Albumin/Globulin Ratio 1.6 1.1 - 2.5 [facility] ACCOUNT BILL Bilirubin Total 0.4 0.1 - 1.2 mg/dL [facility] ACCOUNT BILL Alkaline Phosphatase 104 25 - 150 IU/L [facility] ACCOUNT BILL AST 21 0 - 40 IU/L [facility] ACCOUNT BILL ALT 33 0 - 55 IU/L [facility] ACCOUNT BILL 03/08/2009 4:28 PM ADVERTISING SALES MANAGER 03/08/2009 9:28 PM ADVERTISING SALES MANAGER Narrative Resulting Agency Comment [facility] [address] ??[facility] [phone] Isidro Heredia MD LAB - CHEMISTRY ORD ERABLES [facility] ACCOUNT BILL * (ABNORMAL) CBC W AUTO DIFFERENTIAL (03/08/2009 4:28 PM ADVERTISING SALES MANAGER) WBC 8.8 4.0 - 10.5 x10E3/uL [facility] ACCOUNT BILL RBC 4.33 4.10 - 5.60 x10E6/uL [facility] ACCOUNT BILL Hemoglobin 13.4 12.5 - 17.0 g/dL [facility] ACCOUNT BILL Hematocrit 38.6 36.0 - 50.0 % [facility] ACCOUNT BILL MCV 89 80 - 98 fL [facility] ACCOUNT BILL MCH 30.9 27.0 - 34.0 pg [facility] ACCOUNT BILL MCHC 34.7 32.0 - 36.0 g/dL [facility] ACCOUNT BILL RDW 14.1 11.7 - 15.0 % [facility] ACCOUNT BILL Platelet Count 169 140 - 415 x10E3/uL [facility] ACCOUNT BILL Granulocytes % 78(H) 40 - 74 % [facility] ACCOUNT BILL Lymphocytes % 17 14 - 46 % [facility] ACCOUNT BILL Monocytes % 4 4 - 13 % [facility] ACCOUNT BILL Eosinophils % 1 0 - 7 % [facility] ACCOUNT BILL Basophils % 0 0 - 3 % [facility] ACCOUNT BILL Granulocytes Absolute 6.9 1.8 - 7.8 x10E3/uL [facility] ACCOUNT BILL Lymphocytes Absolute 1.5 0.7 - 4.5 x10E3/uL [facility] ACCOUNT BILL Monocytes Absolute 0.4 0.1 - 1.0 x10E3/uL [facility] ACCOUNT BILL Eosinophils Absolute 0.1 0.0 - 0.4 x10E3/uL [facility] ACCOUNT BILL Basophils Absolute 0.0 0.0 - 0.2 x10E3/uL [facility] ACCOUNT BILL Comment Hematology NOT AVAIL. [facility] ACCOUNT BILL 03/08/2009 4:28 PM ADVERTISING SALES MANAGER 03/08/2009 9:28 PM ADVERTISING SALES MANAGER Narrative [facility] ACCOUNT BILL - 03/09/2009 6:12 AM ADVERTISING SALES MANAGER Additional Result Information HEMATOLOGY COMMENTS: ??BLOOD,URINE ([facility]): RESULT NOT AVAILABLE Resulting Agency Comment [facility] [address] ??[facility] [phone] Isidro Heredia MD LAB - HEMATOLOGY OR DERABLES [facility] ACCOUNT BILL documented in this encounter Visit Diagnoses Not on filedocumented in this encounter Care Teams Ultrasonic Tester Relationship Specialty Start Date End Date Nolberto Nicole MD PCP - General 07/21/08 12/30/13 documented as of this encounter
--- OUTSIDE RECORDS SUMMARY | 2024-05-03 04:16 | XMS_ITS | Encounter Summary ---
Author Organization [facility] Address [address] [place] [address] [place] [address] Care Team Providers Care International Editorial Producer Name Role Phone Nolberto Nicole MD Primary Care Provider [phone] Reason for Visit * Reason Comments Rheumatoid Arthritis followup Encounter Details Date Type Department Care Team (Late st Contact Info) Description 10/12/2008 5:15 PM CDT Office Visit [facility] - Rheumatology [address] [place] [phone] Isidro Heredia MD [address] [place] [address] Rheumatoid Arthritis (HCC) (Primary Dx); GERD (Gastroesophageal Reflux Disease); Osteopenia Social History Tobacco Use Types Packs/Day Years [...] Reading Time Taken Comments Blood Pressure 120/90 10/12/2008 5:45 PM CDT Pulse 66 10/12/2008 5:45 PM CDT Temperature - - Respiratory Rate - - Oxygen Saturation - - Inhaled Oxygen Concentration - - Weight 110.2 kg (243 lb) 10/12/2008 5:45 PM CDT Height - - Body Mass Index 34.87 07/27/2008 3:57 PM CDT documented in this encounter Progress Notes * Rea Hagan MA - 10/20/2008 4:24 PM CDTQuick Note: Informed pt labs all ok * Isidro Heredia MD - 10/19/2008 12:37 PM CDTQuick Note: Mtx ok ra neg * Isidro Heredia MD - 10/12/2008 6:25 PM CDT Subjective: Chalino Deng 47 y.o. male Chief Complaint Patient presents with ??? Rheumatoid Arthritis followup tolerable Current outpatient prescriptions prior to encounter Medication Sig Dispense Refill ??? ACTONEL 150 MG TABS Take 150 [...] by mouth at bedtime. 30 6 ??? oxycodone-acetaminophen (PERCOCET) 7.5-325 MG tablet Take 1 Tab by mouth every 4 hours as needed for Pain. 120 0 ??? naproxen (NAPROSYN) 500 MG tablet Take 500 mg by mouth 2 times daily. ??? Methotrexate (Anti-Rheumatic) 2.5 MG TABS Take 6 Tabs by mouth every 7 days. ??? PREVACID PO Take by mouth daily. ??? NEXIUM 40 MG CPDR Take 40 mg by mouth daily before breakfast. Patient Active Problem List Diagnoses Code ??? Rheumatoid Arthritis 714.0 ??? GERD (Gastroesophageal Reflux Disease) 530.81S ??? Osteopenia 733.90X History Tobacco Use Never History Alcohol Use History Drug Use Not on file Pain Level: 7/10 Am stiffness 45 min Global 7/10 Fatigue yes Medication Side Effects no Review of Systems: GENERAL: No fever, chills, [...] No cyanosis, clubbing, edema OTHER: Objective: BP 120/90 Pulse 66 Wt 110.224 kg (243 lb) Tender Joint Count 26 Swollen Joint Count 9 Muscles: Weak or Tender 0 Rheumatoid Nodules: [...] Code Name Primary? 714.0 Rheumatoid Arthritis Yes ??? 530.81S GERD (Gastroesophageal Reflux Disease) ??? 733.90X Osteopenia Plan: Plan Orders Placed This Encounter ??? Toi gonzalez Follow up in office in 4 weeks * Emily Salinas RN - 10/12/2008 5:51 PM CDT BP 120/90 Pulse 66 Wt 110.224 kg (243 lb) GH level today 7/10 Joint pain = left hand, knees, right shoulder Joint swelling= hands, knees and right shoulder Fatigue level = moderate to severe RX side effects none documented in this encounter Plan of Treatment Upcoming Encounters Date Type Department Care Team (Late st Contact Info) Description 06/03/2024 1:00 PM TRIAL EXAMINER Appointment [facility] - Rheumatology [address] [place] [address] 06/03/2024 2:00 PM TRIAL EXAMINER Office Visit [facility] - Rheumatology [address] [place] [address] Gloria Smith MD [address] [place] [address] [place] [id number] Scheduled Orders Name Type Priority Associated Diagnoses Orde r Schedule CBC W AUTO DIFFERENTIAL Lab Routine Rheumatoid Arthritis (HCC) Ordered: 10/12/2008 RHEUMATOID FACTOR BLOOD QUANTITATIVE (RF) Lab Routine Rheumatoid Arthritis (HCC) Ordered: 10/12/2008 documented as of this encounter Procedures Procedure Name Priority Date/Time Associated Diagnosis Comments C-REACTIVE PROTEIN Routine 10/12/2008 6: 16 PM CDT Rheumatoid Arthritis (HCC) ERYTHROCYTE SEDIMENTATION RATE Routine 10/12/2008 6:16 PM CDT Rheumatoid Arthritis (HCC) COMPREHENSIVE METABOLIC PANEL Routine 10/12/2008 6:16 PM CDT Rheumatoid Arthritis (HCC) documented in this encounter Results * SED RATE WESTERGREN AUTO (10/12/2008 6:16 PM CDT) Erythrocyte Sedimentation Rate Westergren 14 0 - 15 mm/hr [facility] ACCOUNT BILL BLOOD SPECIMEN / Unknown 10/12/2008 6:16 PM CDT 10/12/2008 9:22 PM CDT Narrative Resulting Agency Comment [facility] [place] [id number] [facility] ??[facility] [phone] Isidro Heredia MD LAB - HEMATOLOGY OR DERABLES [facility] ACCOUNT BILL * (ABNORMAL) C-REACTIVE PROTEIN (10/12/2008 6:16 PM CDT) C-Reactive Protein 12.9(H) 0.0 - 4.9 mg/L [facility] ACCOUNT BILL BLOOD SPECIMEN / Unknown 10/12/2008 6:16 PM CDT 10/12/2008 9:22 PM CDT Narrative Resulting Agency Comment [facility] [place] [address] [facility] ??[facility] [phone] Isidro Heredia MD LAB - CHEMISTRY ORD ERABLES [facility] ACCOUNT BILL * COMPREHENSIVE METABOLIC PANEL (10/12/2008 6:16 PM CDT) Glucose 80 65 - 99 mg/dL [facility] ACCOUNT BILL BUN 18 5 - 26 mg/dL [facility] ACCOUNT BILL Creatinine 0.89 0.76 [...] may be found at [email or web address].org. BUN/Creatinine Ratio 20 8 - 27 [facility] ACCOUNT BILL Sodium 142 135 - 145 mmol/L [facility] ACCOUNT BILL Potassium 4.0 3.5 - 5.2 mmol/L [facility] ACCOUNT BILL Chloride 103 97 - 108 mmol/L [facility] ACCOUNT BILL CO2 22 20 - 32 mmol/L [facility] ACCOUNT BILL Calcium 9.5 8.5 - 10.6 mg/dL [facility] ACCOUNT BILL Protein Total 7.4 6.0 - 8.5 g/dL [facility] ACCOUNT BILL Albumin 4.4 3.5 - 5.5 g/dL [facility] ACCOUNT BILL Globulin Total 3.0 1.5 - 4.5 g/dL [facility] ACCOUNT BILL Albumin/Globulin Ratio 1.5 1.1 - 2.5 [facility] ACCOUNT BILL Bilirubin Total 0.5 0.1 - 1.2 mg/dL [facility] ACCOUNT BILL Alkaline Phosphatase 103 25 - 150 IU/L [facility] ACCOUNT BILL AST 24 0 - 40 IU/L [facility] ACCOUNT BILL ALT 28 0 - 55 IU/L [facility] ACCOUNT BILL BLOOD SPECIMEN / Unknown 10/12/2008 6:16 PM CDT 10/12/2008 9:22 PM CDT Narrative Resulting Agency Comment [facility] [place] [address] [facility] ??[facility] [phone] Isidro Heredia MD LAB - CHEMISTRY ORD ERABLES [facility] ACCOUNT BILL documented in this encounter Visit Diagnoses Diagnosis Rheumatoid arthritis(714.0) (HCC)- Primary Rheumatoid arthritis GERD (gastroesophageal reflux disease) Esophageal reflux Osteopenia Disorder of bone and cartilage, unspecified documented in this encounter Care Teams International Editorial Producer Relationship Specialty Start Date End Date Nolberto Nicole MD PCP - General 07/21/08 12/30/13 documented as of this encounter
--- OUTSIDE RECORDS SUMMARY | 2024-05-03 04:16 | XMS_ITS | Encounter Summary ---
Author Organization [facility] Address [address] [place] [address] [place] [address] Care Team Providers Care Recycling Collections Driver Name Role Phone Nolberto Nicole MD Primary Care Provider [phone] Reason for Visit * Reason Comments Rheumatoid Arthritis followup Encounter Details Date Type Department Care Team (Late st Contact Info) Description 11/16/2008 5:15 PM CDT Office Visit [facility] - Rheumatology [address] [place] [address] Isidro Heredia MD [address] [place] [address] Rheumatoid Arthritis (HCC) (Primary Dx); GERD (Gastroesophageal [...] Reading Time Taken Comments Blood Pressure 120/90 11/16/2008 5:45 PM CDT Pulse 80 11/16/2008 5:45 PM CDT Temperature - - Respiratory Rate - - Oxygen Saturation - - Inhaled Oxygen Concentration - - Weight 110.2 kg (243 lb) 11/16/2008 5:45 PM CDT Height - - Body Mass Index 34.87 07/27/2008 3:57 PM CDT documented in this encounter Progress Notes * Rea Hagan MA - 11/23/2008 1:38 PM CDTQuick Note: Sent letter * Isidro Heredia MD - 11/22/2008 4:25 PM CDTQuick Note: M\tx ok * Isidro Heredia MD - 11/16/2008 6:18 PM CDT Subjective: Chalino Deng 48 y.o. male Chief Complaint Patient presents with ??? Rheumatoid Arthritis followup no change doing pt on his neck for 10 weeks spondylosis C5C6 Xrays [place] Current outpatient prescriptions prior to encounter Medication Sig Dispense Refill ??? HUMIRA PEN SC Inject 40 mg [...] 6 Tabs by mouth every 7 days. Patient Active Problem List Diagnoses Code ??? Rheumatoid Arthritis 714.0 ??? GERD (Gastroesophageal Reflux Disease) 530.81S ??? Osteopenia 733.90X History Tobacco Use Never History Alcohol Use History Drug Use Not on file Pain Level: 5/10 Am stiffness 1 hr Global 7/10 Fatigue [...] clubbing, edema OTHER: Objective: BP 120/90 Pulse 80 Wt 110.224 kg (243 lb) Tender Joint Count 23 Swollen Joint Count 10 Muscles: Weak or Tender 0 Rheumatoid Nodules: [...] protein ??? Sed rate westergren auto ??? Esomeprazole magnesium 40 mg po cpdr ??? Oxycodone hcl 20 mg po tb12 Follow up in office in 4 weeks * Emily Salinas RN - 11/16/2008 5:45 PM CDT BP 120/90 Pulse 80 Wt 110.224 kg (243 lb) Mild joint pain in right hand, and knees, right shoulder. Neck pain getting physical therapy 3x wkly x 10wks Unable to refill Oxycodone from last refill since it was an early refill and now he needs updated refill for oxycodone documented in this encounter Plan of Treatment Upcoming Encounters Date Type Department Care Team (Late st Contact Info) Description 06/03/2024 1:00 PM CENTRAL SUPPLY TECH Appointment [facility] - Rheumatology [address] [place] [address] [phone] 06/03/2024 2:00 PM CENTRAL SUPPLY TECH Office Visit [facility] - Rheumatology [address] [place] [address] [phone] Gloria Smith MD [address] [place] [address] [phone] Scheduled Orders Name Type Priority Associated Diagnoses Orde r Schedule C-REACTIVE PROTEIN Lab Routine Rheumatoid Arthritis (HCC) Ordered: 11/16/2008 SED RATE WESTERGREN AUTO Lab Routine Rheumatoid Arthritis (HCC) Ordered: 11/16/2008 documented as of this encounter Procedures Procedure Name Priority Date/Time Associated Diagnosis Comments CBC W AUTO DIFFERENTIAL Routine 11/16/2008 6:09 PM CDT Rheumatoid Arthritis (HCC) COMPREHENSIVE METABOLIC PANEL Routine 11/16/2008 6:09 PM CDT Rheumatoid Arthritis (HCC) documented in this encounter Results * COMPREHENSIVE METABOLIC PANEL (11/16/2008 6:09 PM CDT) Glucose 98 65 - 99 mg/dL [facility] ACCOUNT BILL BUN 25 5 - 26 mg/dL [facility] ACCOUNT BILL Creatinine 0.95 0.76 - 1.27 mg/dL [facility] ACCOUNT BILL [...] may be found at [email or web address]. BUN/Creatinine Ratio 26 8 - 27 [facility] ACCOUNT BILL Sodium 137 135 - 145 mmol/L [facility] ACCOUNT BILL Potassium 4.6 3.5 - 5.2 mmol/L [facility] ACCOUNT BILL Chloride 103 97 - 108 mmol/L [facility] ACCOUNT BILL CO2 21 20 - 32 mmol/L [facility] ACCOUNT BILL Calcium 9.3 8.5 - 10.6 mg/dL [facility] ACCOUNT BILL Protein Total 7.1 [...] [facility] ACCOUNT BILL BLOOD SPECIMEN / Unknown 11/16/2008 6:09 PM CDT 11/16/2008 9:41 PM CDT Narrative Resulting Agency Comment [facility] [address] ??[facility] [phone] Isidro Heredia MD LAB - CHEMISTRY ORD ERABLES [facility] ACCOUNT BILL * (ABNORMAL) CBC W AUTO DIFFERENTIAL (11/16/2008 6:09 PM CDT) WBC 11.9(H) 4.0 - 10.5 x10E3/uL [facility] ACCOUNT BILL RBC 4.16 4.10 - 5.60 x10E6/uL [facility] ACCOUNT BILL Hemoglobin 13.3 12.5 - 17.0 g/dL [facility] ACCOUNT BILL Hematocrit 39.2 36.0 - 50.0 % [facility] ACCOUNT BILL MCV 94 80 - 98 fL [facility] ACCOUNT BILL MCH 32.0 27.0 - 34.0 pg [facility] ACCOUNT BILL MCHC 34.0 32.0 - 36.0 g/dL [facility] ACCOUNT BILL RDW 15.8(H) 11.7 - 15.0 % [facility] ACCOUNT BILL Platelet Count 191 140 - 415 x10E3/uL [facility] ACCOUNT BILL Granulocytes % 68 40 - 74 % [facility] ACCOUNT BILL Lymphocytes % 22 14 - 46 % [facility] ACCOUNT BILL Monocytes % 6 4 - 13 % [facility] ACCOUNT BILL Eosinophils % 3 0 - 7 % [facility] ACCOUNT BILL Basophils % 1 0 - 3 % [facility] ACCOUNT BILL Granulocytes Absolute 8.1(H) 1.8 - 7.8 x10E3/uL [facility] ACCOUNT BILL Lymphocytes Absolute 2.6 0.7 - 4.5 x10E3/uL [facility] ACCOUNT BILL Monocytes Absolute 0.7 0.1 - 1.0 x10E3/uL [facility] ACCOUNT BILL Eosinophils Absolute 0.4 0.0 - 0.4 x10E3/uL [facility] ACCOUNT BILL Basophils Absolute 0.1 0.0 - 0.2 x10E3/uL [facility] ACCOUNT BILL Comment Hematology NOT AVAIL. [facility] ACCOUNT BILL BLOOD SPECIMEN / Unknown 11/16/2008 6:09 PM CDT 11/16/2008 9:41 PM CDT Narrative [facility] ACCOUNT BILL - 11/17/2008 9:26 AM CDT Additional Result Information HEMATOLOGY COMMENTS: ??BLOOD,URINE ([facility]): RESULT NOT AVAILABLE Resulting Agency Comment [facility] [address] ??[facility] [phone] Isidro Heredia MD LAB - HEMATOLOGY OR DERABLES [facility] ACCOUNT BILL documented in this encounter Visit Diagnoses Diagnosis Rheumatoid arthritis(714.0) ([facility])- Primary Rheumatoid arthritis GERD (gastroesophageal reflux disease) Esophageal reflux Osteopenia Disorder of bone and cartilage, unspecified documented in this encounter Care Teams Recycling Collections Driver Relationship Specialty Start Date End Date Nolberto Nicole MD PCP - General 07/21/08 12/30/13 documented as of this encounter
--- OUTSIDE RECORDS SUMMARY | 2024-05-03 04:16 | XMS_ITS | Encounter Summary ---
Author Organization [facility] Address [address] [place] [place] [address] Care Team Providers Care Acid Bleacher Name Role Phone Nolberto Nicole MD Primary Care Provider [phone] Encounter Details Date Type Department Care Team (Late Contact Info) Description 08/24/2008 Orders Only [facility] - Rheumatology [address] [place] [address] Isidro Heredia MD [address] [place] [address] Social History Tobacco Use Types Packs/Day [...] (Late Contact Info) Description 06/03/2024 1:00 PM CRAWLER DRAGLINE OPERATOR Appointment [facility] - Rheumatology [address] [place] [address] 06/03/2024 2:00 PM CRAWLER DRAGLINE OPERATOR Office Visit [facility] - Rheumatology [address] [place] [address] Gloria Smith MD [address] [place] [phone] documented as of this encounter Procedures Procedure Name Priority Date/Time Associated Diagnosis Comments RHEUMATOID FACTOR BLOOD QUANTITATIVE 08/24/2008 6:37 PM CDT CYCLIC CITRULLINATED PEPTIDE([facility]) AB IGG 08/24/2008 6:37 PM CDT documented in this encounter Results * CYCLIC CITRUL PEPTIDE ANTIBODY IGG ([facility]) (08/24/2008 6:37 PM CDT) CCP Antibody IgG 1 0 - 5 U/mL [facility] INSURANCE BILL Comment: ?Negative: ??0 - 5 ?Positive: ? >5 08/24/2008 6:37 PM CDT 08/24/2008 9:56 PM CDT Narrative Resulting Agency Comment [facility] [address] ??[facility] [phone] Isidro Heredia MD LAB - CHEMISTRY ORD ERABLES Performing Organization Address City/[facility] Co de Phone Number [facility] INSURANCE BILL * RHEUMATOID FACTOR BLOOD QUANTITATIVE (08/24/2008 6:37 PM CDT) Pathologist [facility] Rheumatoid Factor 5.0 0.0 - 13.9 IU/mL [facility] INSURANCE BILL 08/24/2008 6:37 PM CDT 08/24/2008 9:56 PM CDT Narrative Resulting Agency Comment [facility] [place] [address] [facility] ??[facility] [phone] Isidro Heredia MD LAB - CHEMISTRY ORD ERABLES [facility] INSURANCE BILL documented in this encounter Visit Diagnoses Not on filedocumented in this encounter Care Teams Acid Bleacher Relationship Specialty Start Date End Date Nolberto Nicole MD PCP - General 07/21/08 12/30/13 documented as of this encounter
--- OUTSIDE RECORDS SUMMARY | 2024-05-03 04:16 | XMS_ITS | Encounter Summary ---
Author Organization [facility] Address [address] [place] [address] Care Team Providers Care Screen Printing Press Operator Name Role Phone Nolberto Nicole MD Primary Care Provider [phone] Encounter Details Date Type Department Care Team (Late Contact Info) Description 06/07/2009 Orders Only [facility] - Rheumatology [address] [place] [address] Isidro Heredia MD [address] [place] [address] Social History Tobacco Use Types Packs/Day [...] (Late Contact Info) Description 06/03/2024 1:00 PM VIDEO ENGINEER Appointment [facility] - Rheumatology [address] [place] [address] 06/03/2024 2:00 PM VIDEO ENGINEER Office Visit [facility] - Rheumatology [address] [place] [address] Gloria Smith MD [address] [place] [phone] documented as of this encounter Procedures Procedure Name Priority Date/Time Associated Diagnosis Comments C-REACTIVE PROTEIN 06/07/2009 5: 41 PM VIDEO ENGINEER ERYTHROCYTE SEDIMENTATION RATE 06/07/2009 5:41 PM VIDEO ENGINEER documented in this encounter Results * C-REACTIVE PROTEIN (06/07/2009 5:41 PM VIDEO ENGINEER) C-Reactive Protein 2.0 0.0 - 4.9 mg/L [facility] ACCOUNT BILL 06/07/2009 5:41 PM VIDEO ENGINEER 06/07/2009 9:20 PM VIDEO ENGINEER Narrative Resulting Agency Comment [facility] [place] [id number] ??[facility] [phone] Isidro Heredia MD LAB - CHEMISTRY ORD ERABLES Performing Organization Address City/[facility]/ZIP Co de Phone Number [facility] ACCOUNT BILL * SED RATE WESTERGREN AUTO (06/07/2009 5:41 PM VIDEO ENGINEER) Erythrocyte Sedimentation Rate Westergren 10 0 - 15 mm/hr [facility] ACCOUNT BILL 06/07/2009 5:41 PM VIDEO ENGINEER 06/07/2009 9:20 PM VIDEO ENGINEER Narrative Resulting Agency Comment [facility] [place] [address] [facility] ??[facility] [phone] Isidro Heredia MD LAB - HEMATOLOGY OR DERABLES [facility] ACCOUNT BILL documented in this encounter Visit Diagnoses Not on filedocumented in this encounter Care Teams Screen Printing Press Operator Relationship Specialty Start Date End Date Nolberto Nicole MD PCP - General 07/21/08 12/30/13 documented as of this encounter
--- OUTSIDE RECORDS SUMMARY | 2024-05-03 04:16 | XMS_ITS | Encounter Summary ---
Author Organization [facility] Address [address] [facility] [place] [address] Care Team Providers Care River Expedition Guide Name Role Phone Nolberto Nicole MD Primary Care Provider [phone] Encounter Details Date Type Department Care Team (Late st Contact Info) Description 08/30/2009 Orders Only [facility] - Rheumatology [address] [place] [address] [phone] Isidro Heredia MD [address] [place] [address] [phone] Social History Tobacco Use Types Packs/Day Years Used Date Smoking Tobacco: Never Alcohol Use Standard Drinks/Week Comments No 0 (1 standard drink = 0.6 oz pur e alcohol) Sex and Gender Information Value Date Recorded Sex Assigned at Not on file Gender Identity Not on file Sexual Orientation Not on file documented as of this encounter Progress Notes * Rea Hagan MA - 09/09/2009 11:33 AM CDTQuick Note: Informed pt labs results * Rea Hagan MA - 09/06/2009 12:28 PM CDTQuick Note: Lm with to have pt to call the office re labs * Isidro Heredia MD - 09/06/2009 6:11 AM CDTQuick Note: Mtx Lft sl inc Hold mtx until next ov Rest of labs ok documented in this encounter Plan of Treatment Upcoming Encounters Date Type Department Care Team (Late st Contact Info) Description 06/03/2024 1:00 PM PLASTERER MAINTENANCE Appointment [facility] - Rheumatology [address] [place] [address] 06/03/2024 2:00 PM PLASTERER MAINTENANCE Office Visit [facility] - Rheumatology [address] [place] [address] Gloria Smith MD [address] [place] [phone] documented as of this encounter Procedures Procedure Name Priority Date/Time Associated Diagnosis Comments ROSA BLOOD SCREEN W/REFLEX TITER 08/30/2009 6:07 PM CDT CBC W AUTO DIFFERENTIAL 08/30/2009 6:07 PM CDT COMPREHENSIVE METABOLIC PANEL 08/30/2009 6:07 PM CDT documented in this encounter Results * ROSA BLOOD SCREEN (08/30/2009 6:07 PM CDT) ROSA Negative [facility] ACCOUNT BILL Comment: ?Negative ?? <1:80 ?Borderline ??1:80 ?Positive ?? >1:80 08/30/2009 6:07 PM CDT 08/30/2009 8:42 PM CDT Narrative Resulting Agency Comment [facility] [place] [address] [facility] ??[facility] [phone] Isidro Heredia MD LAB - CHEMISTRY ORD ERABLES [facility] ACCOUNT BILL * (ABNORMAL) COMPREHENSIVE METABOLIC PANEL (08/30/2009 6:07 PM CDT) Glucose 95 65 - 99 mg/dL [facility] ACCOUNT BILL BUN 24 5 - 26 mg/dL [facility] ACCOUNT BILL [...] may be found at [email or web address]. BUN/Creatinine Ratio 24 8 - 27 [facility] ACCOUNT BILL Sodium 139 135 - 145 mmol/L [facility] ACCOUNT BILL Potassium 4.2 3.5 - 5.2 mmol/L [facility] ACCOUNT BILL Chloride 101 97 - 108 mmol/L [facility] ACCOUNT BILL [...] 0.0 - 1.2 mg/dL [facility] ACCOUNT BILL Comment:Please note refere nce interval change Alkaline Phosphatase 100 25 - 150 IU/L [facility] ACCOUNT BILL AST 42(H) 0 - 40 IU/L [facility] ACCOUNT BILL ALT 52 0 - 55 IU/L [facility] ACCOUNT BILL 08/30/2009 6:07 PM CDT 08/30/2009 8:42 PM CDT Narrative Resulting Agency Comment [facility] [address] ??[facility] [phone] Isidro Heredia MD LAB - CHEMISTRY ORD ERABLES [facility] ACCOUNT BILL * (ABNORMAL) CBC W AUTO DIFFERENTIAL (08/30/2009 6:07 PM CDT) WBC 9.5 4.0 - 10.5 x10E3/uL [facility] ACCOUNT BILL RBC 4.35 4.10 - 5.60 x10E6/uL [facility] ACCOUNT BILL Hemoglobin 13.2 12.5 - 17.0 g/dL [facility] ACCOUNT BILL Hematocrit 39.2 36.0 - 50.0 % [facility] ACCOUNT BILL MCV 90 80 - 98 fL [facility] ACCOUNT BILL MCH 30.4 27.0 - 34.0 pg [facility] ACCOUNT BILL MCHC 33.7 32.0 - 36.0 g/dL [facility] ACCOUNT BILL RDW 15.2(H) 11.7 - 15.0 % [facility] ACCOUNT BILL Platelet Count 192 140 - 415 x10E3/uL [facility] ACCOUNT BILL Granulocytes % 54 40 - 74 % [facility] ACCOUNT BILL Lymphocytes % 39 14 - 46 % [facility] ACCOUNT BILL Monocytes % 5 4 - 13 % [facility] ACCOUNT BILL Eosinophils % 2 0 - 7 % [facility] ACCOUNT BILL Basophils % 0 0 - 3 % [facility] ACCOUNT BILL Immature Cells NOT AVAIL. [facility] ACCOUNT BILL Granulocytes Absolute 5.1 1.8 - 7.8 x10E3/uL [facility] ACCOUNT BILL [...] Comment Hematology NOT AVAIL. [facility] ACCOUNT BILL 08/30/2009 6:07 PM CDT 08/30/2009 8:42 PM CDT Narrative [facility] ACCOUNT BILL - 09/01/2009 3:09 AM CDT Additional Result Information IMMATURE CELLS ([facility]): RESULT NOT AVAILABLE IMMATURE GRANULOCYTES ([facility]): RESULT NOT AVAILABLE IMMATURE GRANS (ABS) ([facility]): RESULT NOT AVAILABLE NRBC ([facility]): RESULT NOT AVAILABLE HEMATOLOGY COMMENTS: ??BLOOD,URINE ([facility]): RESULT NOT AVAILABLE Resulting Agency Comment [facility] [address] ??[facility] [phone] Isidro Heredia MD LAB - HEMATOLOGY OR DERABLES [facility] ACCOUNT BILL documented in this encounter Visit Diagnoses Not on filedocumented in this encounter Care Teams River Expedition Guide Relationship Specialty Start Date End Date Nolberto Nicole MD PCP - General 07/21/08 12/30/13 documented as of this encounter
--- OUTSIDE RECORDS SUMMARY | 2024-05-03 04:16 | XMS_ITS | Encounter Summary ---
Author Organization [facility] Address [address] [place] [address] [place] [address] Care Team Providers Care Street Light Inspector Name Role Phone Nolberto Nicole MD Primary Care Provider [phone] Reason for Visit * Reason Comments Rheumatoid Arthritis followup Encounter Details Date Type Department Care Team (Late st Contact Info) Description 07/05/2009 5:15 PM CATTLE DEHORNER Office Visit [facility] - Rheumatology [address] [place] [address] [phone] Isidro Heredia MD [address] [place] [address] Rheumatoid Arthritis (HCC) (Primary Dx); Osteopenia; Subacromial Bursitis Social History Tobacco Use Types Packs/Day Years [...] Sign Reading Time Taken Comments Blood Pressure 100/80 07/05/2009 5:37 PM CATTLE DEHORNER Pulse 60 07/05/2009 5:37 PM CATTLE DEHORNER Temperature - - Respiratory Rate - - Oxygen Saturation - - Inhaled Oxygen Concentration - - Weight 110.2 kg (243 lb) 07/05/2009 5:37 PM CATTLE DEHORNER Height - - Body Mass Index 34.87 02/08/2009 5:43 PM CDT documented in this encounter Progress Notes * Isidro Heredia MD - 07/05/2009 6:15 PM CST Subjective: Chalino Deng 48 y.o. male Chief Complaint Patient presents with ??? Rheumatoid Arthritis followup Current outpatient prescriptions prior to encounter Medication Sig Dispense Refill ??? oxycodone-acetaminophen (PERCOCET) 5-325 MG tablet Take 1 Tab by mouth every 6 hours as needed for Pain. 120 0 ??? esomeprazole (NEXIUM) 40 MG capsule [...] mouth every 7 days. 72 3 ??? terbinafine (LAMISIL) 250 MG tablet [...] History Drug Use Not on file doing well, exercising Painful left shoulder Pain Level: 6/10 Am stiffness 1 hr Global 7/10 Fatigue y Medication Side Effects y Review of Systems: GENERAL: No fever, chills, [...] No cyanosis, clubbing, edema OTHER: Objective: BP 100/80 Pulse 60 Wt 110.224 kg (243 lb) Tender Joint Count 10 /28 Swollen Joint Count 10/ Muscles: Weak or Tender 0 Rheumatoid Nodules: [...] bursa. Patient tolerated procedure well without complications. LE DEHORNER * Emily Salinas RN - 07/05/2009 5:40 PM CST BP 100/80 Pulse 60 Wt 110.224 kg (243 lb) GH level 6/10, except pain in bilateral shoulders 8/10 worst in left shoulder unable to lift a cup LE DEHORNER documented in this encounter Plan of Treatment Upcoming Encounters Date Type Department Care Team (Late st Contact Info) Description 06/03/2024 1:00 PM CATTLE DEHORNER Appointment [facility] - Rheumatology [address] [place] [address] 06/03/2024 2:00 PM CATTLE DEHORNER Office Visit [facility] - Rheumatology [address] [place] [address] Gloria Smith MD [address] [place] [phone] documented as of this encounter Visit Diagnoses Diagnosis Rheumatoid arthritis(714.0) ([facility])- Primary Rheumatoid arthritis Osteopenia Disorder of bone and cartilage, unspecified Subacromial bursitis Other specified disorders of rotator cuff syndrome of shoulder and allied disorders documented in this encounter Care Teams Street Light Inspector Relationship Specialty Start Date End Date Nolberto Nicole MD PCP - General 07/21/08 12/30/13 documented as of this encounter
--- OUTSIDE RECORDS SUMMARY | 2024-05-03 04:16 | XMS_ITS | Encounter Summary ---
Author Organization [facility] Address [address] [facility] [place] [address] Care Team Providers Care Steward/Stewardess Wine Name Role Phone Nolberto Nicole MD Primary Care Provider [phone] Reason for Visit * Reason Comments Follow-up RA. am stiffness: 1 hr Pain Scale:9/10 Fatigue Pain Joint knees, hands rt shou lder General nodules rt pointer f jenn Encounter Details Date Type Department Care Team (Late st Contact Info) Description 05/26/2010 2:15 PM SAUTE CHEF Office Visit [facility] - Rheumatology [address] [place] [address] Isidro Heredia MD [address] [place], [place] [phone] Rheumatoid arthritis (HCC) (Primary Dx) Social History [...] Reading Time Taken Comments Blood Pressure 124/76 05/26/2010 2:39 PM SAUTE CHEF Pulse 92 05/26/2010 2:39 PM SAUTE CHEF Temperature - - Respiratory Rate - - Oxygen Saturation - - Inhaled Oxygen Concentration - - Weight 111.6 kg (246 lb) 05/26/2010 2:39 PM SAUTE CHEF Height - - Body Mass Index 35.3 02/08/2009 5:43 PM CDT documented in this encounter Progress Notes * Rea Hagan MA - 06/07/2010 3:55 PM CSTQuick Note: Sent lab letter to pt E CHEF * Isidro Heredia MD - 05/28/2010 9:25 PM CSTQuick Note: Wbc sl inc mtx ok E CHEF * Isidro Heredia MD - 05/26/2010 3:02 PM CST Subjective: Chalino Deng 49 y.o. male Chief Complaint Patient presents with ??? Follow-up RA. am stiffness: 1 hr Pain Scale:9/10 ??? Fatigue ??? Pain Joint knees, hands rt shoulder ??? General nodules rt pointer finger Current outpatient prescriptions ordered prior to encounter Medication Sig Dispense Refill ??? methotrexate (RHEUMATREX) [...] Drug Use Not on file he was working hard in [place] Painful knees qand hands Pain Level: 01/07 Am stiffness 1 hr Global 12/07 Fatigue y Medication Side Effects n Review [...] clubbing, edema OTHER: Objective: BP 124/76 Pulse 92 Wt 246 lb (111.585 kg) Tender Joint Count 28/28 Swollen Joint Count 13/28 Muscles: Weak or Tender 0 Rheumatoid Nodules: [...] for Pain. Dispense: 120 Tab Refill: 0 Inc pred to 20 mg/ prn He is on 15 mg/d Follow up in office in 4 weeks E CHEF * Rea Hagan MA - 05/26/2010 2:43 PM CST Chief Complaint Patient presents with ??? Follow-up RA. am stiffness: 1 hr Pain Scale:9/10 ??? Fatigue ??? Pain Joint knees, hands rt shoulder ??? General nodules rt pointer finger BP 124/76 Pulse 92 Wt 246 lb (111.585 kg) E CHEF documented in this encounter Plan of Treatment Upcoming Encounters Date Type Department Care Team (Late st Contact Info) Description 06/03/2024 1:00 PM SAUTE CHEF Appointment [facility] - Rheumatology [address] [place] [address] [phone] 06/03/2024 2:00 PM SAUTE CHEF Office Visit [facility] - Rheumatology [address] [place] [address] Gloria Smith MD [address] [place] [phone] documented as of this encounter Procedures Procedure Name Priority Date/Time Associated Diagnosis Comments C-REACTIVE PROTEIN Routine 05/26/2010 2: 57 PM SAUTE CHEF Rheumatoid arthritis (HCC) ERYTHROCYTE SEDIMENTATION RATE Routine 05/26/2010 2:57 PM SAUTE CHEF Rheumatoid arthritis (HCC) CBC W AUTO DIFFERENTIAL Routine 05/26/2010 2:57 PM SAUTE CHEF Rheumatoid arthritis (HCC) COMPREHENSIVE METABOLIC PANEL Routine 05/26/2010 2:57 PM SAUTE CHEF Rheumatoid arthritis (HCC) documented in this encounter Results * (ABNORMAL) SED RATE WESTERGREN AUTO (05/26/2010 2:57 PM SAUTE CHEF) Erythrocyte Sedimentation Rate Westergren 21(H) 0 - 15 mm/hr [facility] ACCOUNT BILL BLOOD SPECIMEN / Unknown 05/26/2010 2:57 PM SAUTE CHEF 05/26/2010 8:56 PM SAUTE CHEF Narrative Resulting Agency Comment [facility] ??[facility] [phone] Isidro Heredia MD LAB - HEMATOLOGY OR DERABLES Performing Organization Address City/[facility]/ZIP Co de Phone Number [facility] ACCOUNT BILL * C-REACTIVE PROTEIN (05/26/2010 2:57 PM SAUTE CHEF) C-Reactive Protein 3.9 0.0 - 4.9 mg/L [facility] ACCOUNT BILL BLOOD SPECIMEN / Unknown 05/26/2010 2:57 PM SAUTE CHEF 05/26/2010 8:56 PM SAUTE CHEF Narrative Resulting Agency Comment [facility] ??[facility] [phone] Isidro Heredia MD LAB - CHEMISTRY ORD ERABLES Performing Organization Address [facility] de Phone Number [facility] ACCOUNT BILL * (ABNORMAL) COMPREHENSIVE METABOLIC PANEL (05/26/2010 2:57 PM SAUTE CHEF) Glucose 99 65 - 99 mg/dL [facility] [...] may be found at [email or web address]. BUN/Creatinine Ratio 27(H) 9 - 20 [facility] ACCOUNT BILL Sodium 137 135 - [...] - 40 IU/L [facility] ACCOUNT BILL ALT 31 0 - 55 IU/L [facility] ACCOUNT BILL BLOOD SPECIMEN / Unknown 05/26/2010 2:57 PM SAUTE CHEF 05/26/2010 8:56 PM SAUTE CHEF Narrative Resulting Agency Comment [facility] [address] ??[facility] [phone] Isidro Heredia MD LAB - CHEMISTRY ORD ERABLES [facility] ACCOUNT BILL * (ABNORMAL) CBC W AUTO DIFFERENTIAL (05/26/2010 2:57 PM SAUTE CHEF) WBC 11.9(H) 4.0 - 10.5 x10E3/uL [facility] ACCOUNT BILL RBC 4.39 4.10 - 5.60 x10E6/uL [facility] ACCOUNT BILL Hemoglobin 13.2 12.5 - 17.0 g/dL [facility] ACCOUNT BILL Hematocrit 39.7 36.0 - 50.0 % [facility] ACCOUNT BILL [...] the test is not needed Granulocytes Absolute 7.7 1.8 - 7.8 x10E3/uL [facility] ACCOUNT BILL [...] is not needed BLOOD SPECIMEN / Unknown 05/26/2010 2:57 PM SAUTE CHEF 05/26/2010 8:56 PM SAUTE CHEF Narrative Resulting Agency Comment [facility] [address] ??[facility] [phone] Isidro Heredia MD LAB - HEMATOLOGY OR DERABLES [facility] ACCOUNT BILL documented in this encounter Visit Diagnoses Diagnosis Rheumatoid arthritis(714.0) (HCC)- Primary Rheumatoid arthritis documented in this encounter Care Teams Steward/Stewardess Wine Relationship Specialty Start Date End Date Nolberto Nicole MD PCP - General 07/21/08 12/30/13 documented as of this encounter
--- OUTSIDE RECORDS SUMMARY | 2024-05-03 04:16 | XMS_ITS | Encounter Summary ---
Author Organization [facility] Address [address] [facility] [place] [address] Care Team Providers Care Escalator Service Mechanic Name Role Phone Nolberto Nicole MD Primary Care Provider [phone] Reason for Visit * Reason Comments Chest Pain on the left side und er the rib cage since Sun 5/2. pain scale 10. if he turns a certain way it chest [place] General PCP had blwk done wh ich showed he is boderline anemic General tender to touch on l eft side chest area Encounter Details Date Type Department Care Team (Late st Contact Info) Description 08/30/2009 5:30 PM CDT Office Visit [facility] - Rheumatology [address] [place] [address] Isidro Heredia MD [address] [place], [place] [phone] Rheumatoid Arthritis (HCC) (Primary Dx) Social History [...] Sign Reading Time Taken Comments Blood Pressure 122/88 08/30/2009 5:50 PM CDT Pulse 80 08/30/2009 5:50 PM CDT Temperature - - Respiratory Rate - - Oxygen Saturation - - Inhaled Oxygen Concentration - - Weight 110.7 kg (244 lb) 08/30/2009 5:50 PM CDT Height - - Body Mass Index 35.01 02/08/2009 5:43 PM CDT documented in this encounter Progress Notes * Isidro Heredia MD - 08/30/2009 6:32 PM CDT Subjective: Chalino Deng 48 y.o. male Chief Complaint Patient presents with ??? Chest Pain on the left side under the rib cage since Sun 08/29. pain scale 10. if he turns a certain way it chest [place] ??? General PCP had blwk done which showed he is boderline anemic ??? General tender to touch on left side chest area Current outpatient prescriptions prior to encounter Medication Sig Dispense Refill ??? triamcinolone acetonide (KENALOG-40) injection 2 mL [...] No History Drug Use Not on file off plaquenil for 1 mo bec of poss eye abn Saw pcp anemic Sharp left ant cp flexeril made him go to sleep Pain Level: 10/07 humira does help Am stiffness 1 hr Global 11/06 Fatigue y Medication Side Effects y Review [...] No cyanosis, clubbing, edema OTHER: Objective: BP 122/88 Pulse 80 Wt 110.678 kg (244 lb) Tender Joint Count 28 Swollen Joint Count 03/27 Muscles: Weak or [...] Comprehensive metabolic panel ??? C-reactive protein ??? Cyclic citrul peptide antibody igg/iga (ccp) ??? Rheumatoid factor blood quantitative ??? Raquel w reflx (positive) (po ref lab) ??? Sed rate westergren auto ??? Oxycodone-acetaminophen 5-325 mg po tabs Sig: Take 1 Tab by mouth every 6 hours as needed for Pain. Dispense: 120 Refill: 0 Same meds Follow up in office in 4 weeks * Rea Hagan MA - 08/30/2009 5:53 PM CDT Chief Complaint Patient presents with ??? Chest Pain on the left side under the rib cage since Sun 08/29. pain scale 10. if he turns a certain way it chest [place] ??? General PCP had blwk done which showed he is boderline anemic ??? General tender to touch on left side chest area BP 122/88 Pulse 80 Wt 110.678 kg (244 lb) documented in this encounter Plan of Treatment Upcoming Encounters Date Type Department Care Team (Late st Contact Info) Description 06/03/2024 1:00 PM FINE GRADE OPERATOR Appointment [facility] - Rheumatology [address] [place] [address] [phone] 06/03/2024 2:00 PM FINE GRADE OPERATOR Office Visit [facility] - Rheumatology [address] [place] [address] Gloria Smith MD [address] [place] [phone] Scheduled Orders Name Type Priority Associated Diagnoses Orde r Schedule CBC W AUTO DIFFERENTIAL Lab Routine Rheumatoid Arthritis ([facility]) Ordered: 08/30/2009 COMPREHENSIVE METABOLIC PANEL Lab Routine Rheumatoid Arthritis ([facility]) Ordered: 08/30/2009 RAQUEL W REFLX (POSITIVE) (PO REF LAB) Lab Routine Rheumatoid Arthritis ([facility]) Ordered: 08/30/2009 documented as of this encounter Procedures Procedure Name Priority Date/Time Associated Diagnosis Comments CYCLIC CITRUL PEPTIDE ANTIBODY IGG/IGA (CCP) Routine 08/30/2009 6:07 PM CDT Rheumatoid Arthritis ([facility]) RHEUMATOID FACTOR BLOOD QUANTITATIVE Routine 08/30/2009 6:07 PM CDT Rheumatoid Arthritis ([facility]) C-REACTIVE PROTEIN Routine 08/30/2009 6: 07 PM CDT Rheumatoid Arthritis ([facility]) ERYTHROCYTE SEDIMENTATION RATE Routine 08/30/2009 6:07 PM CDT Rheumatoid Arthritis (HCC) documented in this encounter Results * SED RATE WESTERGREN AUTO (08/30/2009 6:07 PM CDT) Erythrocyte Sedimentation Rate Westergren 14 0 - 15 mm/hr [facility] ACCOUNT BILL BLOOD SPECIMEN / Unknown 08/30/2009 6:07 PM CDT 08/30/2009 8:42 PM CDT Narrative Resulting Agency Comment [facility] [place] [address] ??[facility] [phone] Isidro Heredia MD LAB - HEMATOLOGY OR DERABLES [facility] ACCOUNT BILL * RHEUMATOID FACTOR BLOOD QUANTITATIVE (08/30/2009 6:07 PM CDT) Rheumatoid Factor 6.8 0.0 - 13.9 IU/mL [facility] ACCOUNT BILL BLOOD SPECIMEN / Unknown 08/30/2009 6:07 PM CDT 08/30/2009 8:42 PM CDT Narrative Resulting Agency Comment [facility] [place] [address] ??[facility] [id number] Isidro Heredia MD LAB - CHEMISTRY ORD ERABLES Performing Organization Address [facility] Co de Phone Number [facility] ACCOUNT BILL * CYCLIC CITRUL PEPTIDE ANTIBODY IGG/IGA (CCP) (08/30/2009 6:07 PM CDT) CCP Antibodies IgG/IgA 14 0 - 19 units [facility] ACCOUNT BILL Comment: ? Negative ? <20 ? Weak positive ?20 - 39 ? Moderate positive ??40 - 59 ? Strong positive ?>59 BLOOD SPECIMEN / Unknown 08/30/2009 6:07 PM CDT 08/30/2009 8:42 PM CDT Narrative Resulting Agency Comment [facility] [address] ??[facility] [phone] Isidro Heredia MD LAB - SEROLOGY MARII ARAUJO [facility] ACCOUNT BILL * C-REACTIVE PROTEIN (08/30/2009 6:07 PM CDT) C-Reactive Protein 2.8 0.0 - 4.9 mg/L [facility] ACCOUNT BILL BLOOD SPECIMEN / Unknown 08/30/2009 6:07 PM CDT 08/30/2009 8:42 PM CDT Narrative Resulting Agency Comment [facility] [place] [id number] [facility] ??[facility] [id number] Isidro Heredia MD LAB - CHEMISTRY ORD DONNIE [facility] ACCOUNT BILL documented in this encounter Visit Diagnoses Diagnosis Rheumatoid arthritis(714.0) ([facility])- Primary Rheumatoid arthritis documented in this encounter Care Teams Escalator Service Mechanic Relationship Specialty Start Date End Date Nolberto Nicole MD PCP - General 07/21/08 12/30/13 documented as of this encounter
--- OUTSIDE RECORDS SUMMARY | 2024-05-03 04:16 | XMS_ITS | Encounter Summary ---
Author Organization [facility] Address [address] [place] [address] Care Team Providers Care Production Hand Name Role Phone Nolberto Nicole MD Primary Care Provider [phone] Encounter Details Date Type Department Care Team (Late Contact Info) Description 07/05/2009 Orders Only [facility] - Rheumatology [address] [place] [address] Isidro Heredia MD [address] [place] [id number] Social History Tobacco Use Types Packs/Day [...] st Contact Info) Description 06/03/2024 1:00 PM PROPERTY UNDERWRITER Appointment [facility] - Rheumatology [address] [place] [address] 06/03/2024 2:00 PM PROPERTY UNDERWRITER Office Visit [facility] - Rheumatology [address] [place] [address] Gloria Smith MD [address] [place] [phone] documented as of this encounter Procedures Procedure Name Priority Date/Time Associated Diagnosis Comments ERYTHROCYTE SEDIMENTATION RATE 07/05/2009 6:00 PM PROPERTY UNDERWRITER documented in this encounter Results * SED RATE WESTERGREN AUTO (07/05/2009 6:00 PM PROPERTY UNDERWRITER) Erythrocyte Sedimentation Rate Westergren 15 0 - 15 mm/hr [facility] ACCOUNT BILL 07/05/2009 6:00 PM PROPERTY UNDERWRITER 07/05/2009 10:21 PM PROPERTY UNDERWRITER Narrative Resulting Agency Comment [facility] [place] [id number] [facility] ??[facility] [phone] Isidro Heredia MD LAB - HEMATOLOGY OR DERABLES [facility] ACCOUNT BILL documented in this encounter Visit Diagnoses Not on filedocumented in this encounter Care Teams Production Hand Relationship Specialty Start Date End Date Nolberto Nicole MD PCP - General 07/21/08 12/30/13 documented as of this encounter
--- OUTSIDE RECORDS SUMMARY | 2024-05-03 04:16 | XMS_ITS | Encounter Summary ---
Author Organization [facility] Address [address] [place] [address] Care Team Providers Care Sole Rounding Machine Operator Name Role Phone Nolberto Nicole MD Primary Care Provider [phone] Encounter Details Date Type Department Care Team (Late Contact Info) Description 11/16/2008 Orders Only [facility] - Rheumatology [address] [place] [address] Isidro Heredia MD [address] [place] [id number] Social History Tobacco Use Types Packs/Day [...] Contact Info) Description 06/03/2024 1:00 PM HOSPITAL LIAISON Appointment [facility] - Rheumatology [address] [place] [address] 06/03/2024 2:00 PM HOSPITAL LIAISON Office Visit [facility] - Rheumatology [address] [place] [address] Gloria Smith MD [address] [place] [phone] documented as of this encounter Procedures Procedure Name Priority Date/Time Associated Diagnosis Comments C-REACTIVE PROTEIN 11/16/2008 6: 09 PM CDT ERYTHROCYTE SEDIMENTATION RATE 11/16/2008 6:09 PM CDT documented in this encounter Results * C-REACTIVE PROTEIN (11/16/2008 6:09 PM CDT) C-Reactive Protein 4.8 0.0 - 4.9 mg/L [facility] ACCOUNT BILL 11/16/2008 6:09 PM CDT 11/16/2008 9:41 PM CDT Narrative Resulting Agency Comment [facility] [place] [address] ??[facility] [phone] Isidro Heredia MD LAB - CHEMISTRY ORD ERABLES Performing Organization Address City/[facility]/ZIP Co de Phone Number [facility] ACCOUNT BILL * (ABNORMAL) SED RATE WESTERGREN AUTO (11/16/2008 6:09 PM CDT) Erythrocyte Sedimentation Rate Westergren 20(H) 0 - 15 mm/hr [facility] ACCOUNT BILL 11/16/2008 6:09 PM CDT 11/16/2008 9:41 PM CDT Narrative Resulting Agency Comment [facility] [place] [address] [facility] ??[facility] [phone] Isidro Heredia MD LAB - HEMATOLOGY OR DERABLES [facility] ACCOUNT BILL documented in this encounter Visit Diagnoses Not on filedocumented in this encounter Care Teams Sole Rounding Machine Operator Relationship Specialty Start Date End Date Nolberto Nicole MD PCP - General 07/21/08 12/30/13 documented as of this encounter
--- OUTSIDE RECORDS SUMMARY | 2024-05-03 04:16 | XMS_ITS | Encounter Summary ---
Author Organization [facility] Address [address] [facility] [place] [address] Care Team Providers Care Managing Supervisor Name Role Phone Nolberto Nicole MD Primary Care Provider [phone] Reason for Visit * Reason Comments General want to discuss swit fred [id number] - nausea. want to take Percocet General taking Cipro for div erticulitis Encounter Details Date Type Department Care Team (Late st Contact Info) Description 12/14/2008 5:15 PM CDT Office Visit [facility] Medical [facility] - Rheumatology [address] [place] [phone] Isidro Heredia MD [address] [place], [place] [id number] Rheumatoid Arthritis (HCC) (Primary Dx) Social History [...] Sign Reading Time Taken Comments Blood Pressure 128/86 12/14/2008 5:35 PM CDT Pulse 88 12/14/2008 5:35 PM CDT Temperature - - Respiratory Rate - - Oxygen Saturation - - Inhaled Oxygen Concentration - - Weight 109.8 kg (242 lb) 12/14/2008 5:35 PM CDT Height 177.8 cm (5' 10 ) 12/14/2008 5:35 PM CDT Body Mass Index 34.72 12/14/2008 5:35 PM CDT documented in this encounter Progress Notes * Rea Hagan MA - 12/18/2008 1:39 PM CDTQuick Note: Sent letter * Isidro Heredia MD - 12/17/2008 6:48 AM CDTQuick Note: Mtx ok * Isidro Heredia MD - 12/14/2008 6:03 PM CDT Subjective: Chalino Deng 48 y.o. male Chief Complaint Patient presents with ??? General want to discuss switching [id number] - nausea. want to take Percocet 5/325 ??? General taking Cipro for diverticulitis Current outpatient prescriptions prior to encounter Medication Sig Dispense Refill ??? esomeprazole (NEXIUM) 40 MG capsule Take 1 Cap by mouth daily before breakfast. 90 3 ??? HUMIRA PEN SC Inject 40 mg [...] Use History Drug Use Not on file going for pt for his neck 2-3 x /week for bulging disc which helps. Ct scan last weekk diverticulitis On cipro7 Pain Level: 7/10 Am stiffness 1 hr Global 2/10 Fatigue y Medication Side Effects n Review [...] No cyanosis, clubbing, edema OTHER: Objective: BP 128/86 Pulse 88 Ht 1.778 m (5' 10 ) Wt 109.77 kg (242 lb) Tender Joint Count 0 Swollen Joint Count 10 Muscles: Weak or [...] auto ??? Oxycodone-acetaminophen 5-325 mg po tabs Follow up in office in 4 weeks Same meds * Rea Hagan MA - 12/14/2008 5:35 PM CDT Chief Complaint Patient presents with ??? General want to discuss switching [id number] - nausea. want to take Percocet 5/325 ??? General taking Cipro for diverticulitis BP 128/86 Pulse 88 Wt 109.77 kg (242 lb) documented in this encounter Plan of Treatment Upcoming Encounters Date Type Department Care Team (Late st Contact Info) Description 06/03/2024 1:00 PM TIERCE FILLER Appointment [facility] - Rheumatology [address] [place] [address] 06/03/2024 2:00 PM TIERCE FILLER Office Visit [facility] - Rheumatology [address] [place] [address] Gloria Smith MD [address] [place] [phone] documented as of this encounter Procedures Procedure Name Priority Date/Time Associated Diagnosis Comments C-REACTIVE PROTEIN Routine 12/14/2008 5: 54 PM CDT Rheumatoid Arthritis (HCC) ERYTHROCYTE SEDIMENTATION RATE Routine 12/14/2008 5:54 PM CDT Rheumatoid Arthritis (HCC) CBC W AUTO DIFFERENTIAL Routine 12/14/2008 5:54 PM CDT Rheumatoid Arthritis (HCC) COMPREHENSIVE METABOLIC PANEL Routine 12/14/2008 5:54 PM CDT Rheumatoid Arthritis (HCC) documented in this encounter Results * SED RATE WESTERGREN AUTO (12/14/2008 5:54 PM CDT) Erythrocyte Sedimentation Rate Westergren 6 0 - 15 mm/hr [facility] ACCOUNT BILL BLOOD SPECIMEN / Unknown 12/14/2008 5:54 PM CDT 12/14/2008 9:29 PM CDT Narrative Resulting Agency Comment [facility] [place] [address] [facility] ??[facility] [phone] Isidro Heredia MD LAB - HEMATOLOGY OR DERABLES [facility] ACCOUNT BILL * C-REACTIVE PROTEIN (12/14/2008 5:54 PM CDT) C-Reactive Protein 1.6 0.0 - 4.9 mg/L [facility] ACCOUNT BILL BLOOD SPECIMEN / Unknown 12/14/2008 5:54 PM CDT 12/14/2008 9:29 PM CDT Narrative Resulting Agency Comment [facility] [address] ??[facility] [id number] Isidro Heredia MD LAB - CHEMISTRY ORD ERABLES [facility] ACCOUNT BILL * (ABNORMAL) COMPREHENSIVE METABOLIC PANEL (12/14/2008 5:54 PM CDT) Glucose 96 65 - 99 mg/dL [facility] ACCOUNT BILL [...] 8 - 27 [facility] ACCOUNT BILL Sodium 140 135 - 145 mmol/L [facility] ACCOUNT BILL Potassium 4.4 3.5 - 5.2 mmol/L [facility] ACCOUNT BILL Chloride 104 97 - 108 mmol/L [facility] ACCOUNT BILL CO2 18(L) 20 - 32 mmol/L [facility] ACCOUNT BILL Calcium 9.4 8.5 - 10.6 mg/dL [facility] ACCOUNT BILL Protein Total 7.3 6.0 - 8.5 g/dL [facility] ACCOUNT BILL Albumin 4.4 3.5 - 5.5 g/dL [facility] ACCOUNT BILL Globulin Total 2.9 1.5 - 4.5 g/dL [facility] ACCOUNT BILL Albumin/Globulin Ratio 1.5 1.1 - 2.5 [facility] ACCOUNT BILL Bilirubin Total 0.5 0.1 - 1.2 mg/dL [facility] ACCOUNT BILL Alkaline Phosphatase 97 25 - 150 IU/L [facility] ACCOUNT BILL AST 24 0 - 40 IU/L [facility] ACCOUNT BILL ALT 28 0 - 55 IU/L [facility] ACCOUNT BILL BLOOD SPECIMEN / Unknown 12/14/2008 5:54 PM CDT 12/14/2008 9:29 PM CDT Narrative Resulting Agency Comment [facility] [address] ??[facility] [phone] Isidro Heredia MD LAB - CHEMISTRY ORD ERABLES [facility] ACCOUNT BILL * CBC W AUTO DIFFERENTIAL (12/14/2008 5:54 PM CDT) WBC 9.1 4.0 - 10.5 x10E3/uL [facility] ACCOUNT BILL RBC 4.33 4.10 - 5.60 x10E6/uL [facility] ACCOUNT BILL Hemoglobin 13.6 12.5 - 17.0 g/dL [facility] ACCOUNT BILL Hematocrit 40.2 36.0 - 50.0 % [facility] ACCOUNT BILL MCV 93 80 - 98 fL [facility] ACCOUNT BILL MCH 31.5 27.0 - 34.0 pg [facility] ACCOUNT BILL MCHC 33.9 32.0 - 36.0 g/dL [facility] ACCOUNT BILL [...] 3 % [facility] ACCOUNT BILL Granulocytes Absolute 5.5 1.8 - 7.8 x10E3/uL [facility] ACCOUNT BILL Lymphocytes Absolute 2.7 0.7 - 4.5 x10E3/uL [facility] ACCOUNT BILL Monocytes Absolute 0.5 0.1 - 1.0 x10E3/uL [facility] ACCOUNT BILL Eosinophils Absolute 0.3 0.0 - 0.4 x10E3/uL [facility] ACCOUNT BILL Basophils Absolute 0.1 0.0 - 0.2 x10E3/uL [facility] ACCOUNT BILL Comment Hematology NOT AVAIL. [facility] ACCOUNT BILL BLOOD SPECIMEN / Unknown 12/14/2008 5:54 PM CDT 12/14/2008 9:29 PM CDT Narrative [facility] ACCOUNT BILL - 12/15/2008 9:27 AM CDT Additional Result Information HEMATOLOGY COMMENTS: ??BLOOD,URINE ([facility]): RESULT NOT AVAILABLE Resulting Agency Comment [facility] [address] ??[facility] [phone] Isidro Heredia MD LAB - HEMATOLOGY OR DERABLES [facility] ACCOUNT BILL documented in this encounter Visit Diagnoses Diagnosis Rheumatoid arthritis(714.0) ([facility])- Primary Rheumatoid arthritis documented in this encounter Care Teams Managing Supervisor Relationship Specialty Start Date End Date Nolberto Nicole MD PCP - General 07/21/08 12/30/13 documented as of this encounter
--- OUTSIDE RECORDS SUMMARY | 2024-05-03 04:16 | XMS_ITS | Encounter Summary ---
Author Organization [facility] Address [address] [place] [address] [place] [address] Care Team Providers Care Social Sciences Professor Name Role Phone Nolberto Nicole MD Primary Care Provider Reason for Visit * Reason Comments Follow-up ra Cramps obdulia legs at Encounter Details Date Type Department Care Team (Late st Contact Info) Description 05/05/2009 2:15 PM SALES REPRESENTATIVE DOOR TO DOOR Office Visit [facility] - Rheumatology [address] [place] [address] [phone] Isidro Heredia MD [address] [place] [phone] Rheumatoid Arthritis (HCC) (Primary Dx); Osteopenia Social History Tobacco Use Types Packs/Day [...] Sign Reading Time Taken Comments Blood Pressure 116/90 05/05/2009 2:25 PM SALES REPRESENTATIVE DOOR TO DOOR Pulse 88 05/05/2009 2:25 PM SALES REPRESENTATIVE DOOR TO DOOR Temperature - - Respiratory Rate - - Oxygen Saturation - - Inhaled Oxygen Concentration - - Weight 109.3 kg (241 lb) 05/05/2009 2:25 PM SALES REPRESENTATIVE DOOR TO DOOR Height - - Body Mass Index 34.58 02/08/2009 5:43 PM CDT documented in this encounter Progress Notes * Rea Hagan MA - 05/10/2009 11:23 AM CSTSamantha Note: Sent lab letter of 05/05/09 to pt S REPRESENTATIVE DOOR TO DOOR * Isidro Heredia MD - 05/08/2009 9:37 PM CSTQurolando Note: Mtx ok S REPRESENTATIVE DOOR TO DOOR * Isidro Heredia MD - 05/05/2009 2:50 PM CST Subjective: Chalino Deng 48 y.o. male Chief Complaint Patient presents with ??? Follow-up ra ??? Cramps obdulia legs at hs Current outpatient prescriptions prior to encounter Medication Sig Dispense Refill ??? diclofenac sodium (VOLTAREN) 1 % gel [...] No History Drug Use Not on file several flare ups in hands Pain Level: 7/10 Am stiffness 1 hr Global 610 Fatigue y Medication Side Effects [...] No cyanosis, clubbing, edema OTHER: Objective: BP 116/90 Pulse 88 Wt 109.317 kg (241 lb) Tender Joint Count Swollen Joint Count 04/26 Muscles: Weak or Tender 0 Rheumatoid Nodules: [...] Name Primary? 714.0 Rheumatoid Arthritis Yes ??? 733.90X Osteopenia Plan: Plan Orders Placed This Encounter ??? Cbc w auto differential ??? C-reactive protein ??? Comprehensive metabolic panel ??? Sed rate westergren auto ??? Oxycodone-acetaminophen 5-325 mg po tabs ??? Esomeprazole magnesium 40 mg po cpdr (discontinued) ??? Naproxen 500 mg po tabs (discontinued) ??? Cyclobenzaprine hcl 10 mg po tabs (discontinued) ??? Esomeprazole magnesium 40 mg po cpdr ??? Cyclobenzaprine hcl 10 mg po tabs ??? Naproxen 500 mg po tabs Follow up in office in 4 weeks S REPRESENTATIVE DOOR TO DOOR * Rea Hagan MA - 05/05/2009 2:25 PM CST Chief Complaint Patient presents with ??? Follow-up ra ??? Cramps obdulia legs at hs BP 116/90 Pulse 88 Wt 109.317 kg (241 lb) S REPRESENTATIVE DOOR TO DOOR documented in this encounter Plan of Treatment Upcoming Encounters Date Type Department Care Team (Late st Contact Info) Description 06/03/2024 1:00 PM SALES REPRESENTATIVE DOOR TO DOOR Appointment [facility] - Rheumatology [address] [place] [address] [phone] 06/03/2024 2:00 PM SALES REPRESENTATIVE DOOR TO DOOR Office Visit [facility] - Rheumatology [address] [place] [address] Gloria Smith MD [address] [place] [phone] documented as of this encounter Procedures Procedure Name Priority Date/Time Associated Diagnosis Comments C-REACTIVE PROTEIN Routine 05/05/2009 2: 34 PM SALES REPRESENTATIVE DOOR TO DOOR Rheumatoid Arthritis (HCC) ERYTHROCYTE SEDIMENTATION RATE Routine 05/05/2009 2:34 PM SALES REPRESENTATIVE DOOR TO DOOR Rheumatoid Arthritis (HCC) CBC W AUTO DIFFERENTIAL Routine 05/05/2009 2:34 PM SALES REPRESENTATIVE DOOR TO DOOR Rheumatoid Arthritis (HCC) COMPREHENSIVE METABOLIC PANEL Routine 05/05/2009 2:34 PM SALES REPRESENTATIVE DOOR TO DOOR Rheumatoid Arthritis (HCC) documented in this encounter Results * SED RATE WESTERGREN AUTO (05/05/2009 2:34 PM SALES REPRESENTATIVE DOOR TO DOOR) Erythrocyte Sedimentation Rate Westergren 9 0 - 15 mm/hr [facility] ACCOUNT BILL BLOOD SPECIMEN / Unknown 05/05/2009 2:34 PM SALES REPRESENTATIVE DOOR TO DOOR 05/05/2009 9:39 PM SALES REPRESENTATIVE DOOR TO DOOR Narrative Resulting Agency Comment [facility] [address] ??[facility] [phone] Isidro Heredia MD LAB - HEMATOLOGY OR DERABLES [facility] ACCOUNT BILL * COMPREHENSIVE METABOLIC PANEL (05/05/2009 2:34 PM SALES REPRESENTATIVE DOOR TO DOOR) Glucose 86 65 - 99 mg/dL [facility] ACCOUNT BILL [...] - 108 mmol/L [facility] ACCOUNT BILL CO2 26 20 - 32 mmol/L [facility] ACCOUNT BILL Calcium 9.6 8.7 - 10.2 mg/dL [facility] ACCOUNT BILL Comment:Please note refere nce interval change Protein Total 7.4 6.0 - 8.5 g/dL [facility] ACCOUNT BILL Albumin 4.5 3.5 - 5.5 g/dL [facility] ACCOUNT BILL Globulin Total 2.9 1.5 - 4.5 g/dL [facility] ACCOUNT BILL Albumin/Globulin Ratio 1.6 1.1 - 2.5 [facility] ACCOUNT BILL Bilirubin Total 0.7 0.1 - 1.2 mg/dL [facility] ACCOUNT BILL Alkaline Phosphatase 95 25 - 150 IU/L [facility] ACCOUNT BILL AST 24 0 - 40 IU/L [facility] ACCOUNT BILL ALT 31 0 - 55 IU/L [facility] ACCOUNT BILL BLOOD SPECIMEN / Unknown 05/05/2009 2:34 PM SALES REPRESENTATIVE DOOR TO DOOR 05/05/2009 9:39 PM SALES REPRESENTATIVE DOOR TO DOOR Narrative Resulting Agency Comment [facility] [address] ??[facility] [phone] Isidro Heredia MD LAB - CHEMISTRY ORD ERABLES [facility] ACCOUNT BILL * C-REACTIVE PROTEIN (05/05/2009 2:34 PM SALES REPRESENTATIVE DOOR TO DOOR) C-Reactive Protein 3.8 0.0 - 4.9 mg/L [facility] ACCOUNT BILL BLOOD SPECIMEN / Unknown 05/05/2009 2:34 PM SALES REPRESENTATIVE DOOR TO DOOR 05/05/2009 9:39 PM SALES REPRESENTATIVE DOOR TO DOOR Narrative Resulting Agency Comment [facility] [address] ??[facility] [phone] Isidro Heredia MD LAB - CHEMISTRY ORD ERABLES [facility] ACCOUNT BILL * (ABNORMAL) CBC W AUTO DIFFERENTIAL (05/05/2009 2:34 PM SALES REPRESENTATIVE DOOR TO DOOR) Pathologist [facility] WBC 8.2 4.0 - 10.5 x10E3/uL [facility] ACCOUNT BILL RBC 4.32 4.10 - 5.60 x10E6/uL [facility] ACCOUNT BILL Hemoglobin 13.1 12.5 - 17.0 g/dL [facility] ACCOUNT BILL Hematocrit 38.7 36.0 - 50.0 % [facility] ACCOUNT BILL MCV 90 80 - 98 fL [facility] ACCOUNT BILL MCH 30.4 27.0 - 34.0 pg [facility] ACCOUNT BILL MCHC 34.0 32.0 - 36.0 g/dL [facility] ACCOUNT BILL RDW 15.1(H) 11.7 - 15.0 % [facility] ACCOUNT BILL Platelet Count 169 140 - 415 x10E3/uL [facility] ACCOUNT BILL Granulocytes % 47 40 - 74 % [facility] ACCOUNT BILL Lymphocytes % 43 14 - 46 % [facility] ACCOUNT BILL Monocytes % 6 4 - 13 % [facility] ACCOUNT BILL Eosinophils % 4 0 - 7 % [facility] ACCOUNT BILL Basophils % 0 0 - 3 % [facility] ACCOUNT BILL Immature Cells NOT AVAIL. [facility] ACCOUNT BILL Granulocytes Absolute 3.9 1.8 - 7.8 x10E3/uL [...] [facility] ACCOUNT BILL BLOOD SPECIMEN / Unknown 05/05/2009 2:34 PM SALES REPRESENTATIVE DOOR TO DOOR 05/05/2009 9:39 PM SALES REPRESENTATIVE DOOR TO DOOR Narrative [facility] ACCOUNT BILL - 05/06/2009 7:23 AM SALES REPRESENTATIVE DOOR TO DOOR Additional Result Information IMMATURE CELLS ([facility]): RESULT NOT AVAILABLE IMMATURE GRANULOCYTES ([facility]): RESULT NOT AVAILABLE IMMATURE GRANS (ABS) ([facility]): RESULT NOT AVAILABLE NRBC ([facility]): RESULT NOT AVAILABLE HEMATOLOGY COMMENTS: ??BLOOD,URINE ([facility]): RESULT NOT AVAILABLE Resulting Agency Comment [facility] [address] ??[facility] [phone] Isidro Heredia MD LAB - HEMATOLOGY OR DERABLES [facility] ACCOUNT BILL documented in this encounter Visit Diagnoses Diagnosis Rheumatoid arthritis(714.0) ([facility])- Primary Rheumatoid arthritis Osteopenia Disorder of bone and cartilage, unspecified documented in this encounter Care Teams Social Sciences Professor Relationship Specialty Start Date End Date Nolberto Nicole MD PCP - General 07/21/08 12/30/13 documented as of this encounter
--- OUTSIDE RECORDS SUMMARY | 2024-05-03 04:16 | XMS_ITS | Encounter Summary ---
Author Organization [facility] Address [address] [place] [address] [place] [address] Care Team Providers Care Directional Driller Name Role Phone Nolberto Nicole MD Primary Care Provider [phone] Reason for Visit * Reason Comments Shoulder Pain rt Encounter Details Date Type Department Care Team (Late st Contact Info) Description 01/10/2010 4:15 PM CDT Office Visit [facility] - Rheumatology [address] [place] [phone] Isidro Heredia MD [address] [place] [address] Rheumatoid Arthritis (HCC) (Primary Dx); Osteopenia Social [...] Sign Reading Time Taken Comments Blood Pressure 128/90 01/10/2010 4:42 PM CDT Pulse 96 01/10/2010 4:42 PM CDT Temperature - - Respiratory Rate - - Oxygen Saturation - - Inhaled Oxygen Concentration - - Weight 114.3 kg (252 lb) 01/10/2010 4:42 PM CDT Height - - Body Mass Index 36.16 02/08/2009 5:43 PM CDT documented in this encounter Progress Notes * Yamileth Rodríguez MA - 01/17/2010 1:18 PM CDTQuick Note: Letter mailed to patient regarding lab results. * Isidro Heredia MD - 01/16/2010 10:52 AM CDTQuick Note: mtx ok * Isidro Heredia MD - 01/10/2010 5:16 PM CDT Subjective: Chalino Deng 49 y.o. male Chief Complaint Patient presents with ??? Shoulder Pain rt Current outpatient prescriptions [...] mouth 2 times daily. 180 3 ??? Methotrexate (Anti-Rheumatic) 2.5 MG TABS Take [...] No History Drug Use Not on file better than usual except right shoulder Pain Level: 7/10 Am stiffness 1 hr Global 7/10 Fatigue [...] No cyanosis, clubbing, edema OTHER: Objective: BP 128/90 Pulse 96 Wt 252 lb (114.306 kg) Tender Joint Count 24/28 Swollen Joint Count 14/28 Muscles: Weak or [...] Plan: Plan Orders Placed This Encounter ??? Oxycodone-acetaminophen (percocet) 5-325 mg tablet Sig: Take 1 Tab by mouth every 6 hours as needed for Pain. Dispense: 120 Tab Refill: 0 Follow up in office in 4 weeks Under sterile condition, 2 cc's of tac were injected in the right shoulder. Patient tolerated procedure well without complications. * Rea Hagan MA - 01/10/2010 4:43 PM CDT Chief Complaint Patient presents with ??? Shoulder Pain rt BP 128/90 Pulse 96 Wt 252 lb (114.306 kg) documented in this encounter Plan of Treatment Upcoming Encounters Date Type Department Care Team (Late st Contact Info) Description 06/03/2024 1:00 PM UMBRELLA TIPPER HAND Appointment [facility] - Rheumatology [address] [place] [address] [phone] 06/03/2024 2:00 PM UMBRELLA TIPPER HAND Office Visit [facility] - Rheumatology [address] [place] [phone] Gloria Smith MD [address] [place] [phone] documented as of this encounter Procedures Procedure Name Priority Date/Time Associated Diagnosis Comments C-REACTIVE PROTEIN Routine 01/10/2010 5: 14 PM CDT Rheumatoid Arthritis (HCC) ERYTHROCYTE SEDIMENTATION RATE Routine 01/10/2010 5:14 PM CDT Rheumatoid Arthritis (HCC) CBC W AUTO DIFFERENTIAL Routine 01/10/2010 5:14 PM CDT Rheumatoid Arthritis (HCC) COMPREHENSIVE METABOLIC PANEL Routine 01/10/2010 5:14 PM CDT Rheumatoid Arthritis (HCC) documented in this encounter Results * (ABNORMAL) SED RATE WESTERGREN AUTO (01/10/2010 5:14 PM CDT) Erythrocyte Sedimentation Rate Westergren 19(H) 0 - 15 mm/hr [facility] ACCOUNT BILL BLOOD SPECIMEN / Unknown 01/10/2010 5:14 PM CDT 01/10/2010 8:33 PM CDT Narrative Resulting Agency Comment [facility] [address] ??[facility] [phone] Isidro Heredia MD LAB - HEMATOLOGY OR DERABLES [facility] ACCOUNT BILL * C-REACTIVE PROTEIN (01/10/2010 5:14 PM CDT) C-Reactive Protein 3.4 0.0 - 4.9 mg/L [facility] ACCOUNT BILL BLOOD SPECIMEN / Unknown 01/10/2010 5:14 PM CDT 01/10/2010 8:33 PM CDT Narrative Resulting Agency Comment [facility] [address] ??[facility] [phone] Isidro Heredia MD LAB - CHEMISTRY ORD ERABLES [facility] ACCOUNT BILL * COMPREHENSIVE METABOLIC PANEL (01/10/2010 5:14 PM CDT) Glucose 93 65 - 99 mg/dL [facility] ACCOUNT BILL BUN 23 5 - 26 mg/dL [facility] ACCOUNT BILL Creatinine 0.87 0.76 - 1.27 mg/dL [facility] ACCOUNT BILL [...] 1.2 mg/dL [facility] ACCOUNT BILL Alkaline Phosphatase 101 25 - 150 IU/L [facility] ACCOUNT BILL AST 26 0 - 40 IU/L [facility] ACCOUNT BILL ALT 36 0 - 55 IU/L [facility] ACCOUNT BILL BLOOD SPECIMEN / Unknown 01/10/2010 5:14 PM CDT 01/10/2010 8:33 PM CDT Narrative Resulting Agency Comment [facility] [address] ??[facility] [phone] Isidro Heredia MD LAB - CHEMISTRY ORD ERABLES [facility] ACCOUNT BILL * CBC W AUTO DIFFERENTIAL (01/10/2010 5:14 PM CDT) WBC 9.8 4.0 - 10.5 x10E3/uL [facility] ACCOUNT BILL RBC 4.45 4.10 - 5.60 x10E6/uL [facility] ACCOUNT BILL Hemoglobin 13.1 12.5 - 17.0 g/dL [facility] ACCOUNT BILL Hematocrit 38.9 36.0 - 50.0 % [facility] ACCOUNT BILL MCV 87 80 - 98 fL [facility] ACCOUNT BILL MCH 29.4 27.0 - 34.0 pg [facility] ACCOUNT BILL MCHC 33.7 32.0 - 36.0 g/dL [facility] ACCOUNT BILL RDW 14.7 11.7 - 15.0 % [facility] ACCOUNT BILL Platelet Count 219 140 - 415 x10E3/uL [facility] ACCOUNT BILL Granulocytes % 62 40 - 74 % [facility] ACCOUNT BILL Lymphocytes % 31 14 - 46 % [facility] ACCOUNT BILL Monocytes % 6 4 - 13 % [facility] ACCOUNT BILL Eosinophils % 1 0 - 7 % [facility] ACCOUNT BILL Basophils % 0 0 - 3 % [facility] ACCOUNT BILL Immature Cells CANCELED [facility] ACCOUNT BILL Comment:Result canceled by pablo ceballos ancillary Granulocytes Absolute 5.9 1.8 - 7.8 x10E3/uL [facility] ACCOUNT BILL [...] - 0.1 x10E3/uL [facility] ACCOUNT BILL nRBC CANCELED [facility] ACCOUNT BILL Comment:Result canceled by t he ancillary Comment Hematology CANCELED [facility] ACCOUNT BILL Comment:Result canceled by t he ancillary BLOOD SPECIMEN / Unknown 01/10/2010 5:14 PM CDT 01/10/2010 8:33 PM CDT Narrative Resulting Agency Comment [facility] [address] ??[facility] [phone] Isidro Heredia MD LAB - HEMATOLOGY OR DERABLES [facility] ACCOUNT BILL documented in this encounter Visit Diagnoses Diagnosis Rheumatoid arthritis(714.0) ([facility])- Primary Rheumatoid arthritis Osteopenia Disorder of bone and cartilage, unspecified documented in this encounter Care Teams Directional Driller Relationship Specialty Start Date End Date Nolberto Nicole MD PCP - General 07/21/08 12/30/13 documented as of this encounter
--- OUTSIDE RECORDS SUMMARY | 2024-05-03 04:16 | XMS_ITS | Encounter Summary ---
Author Organization [facility] Address [address] [place] [address] [place] [address] Care Team Providers Care Cooling Pan Tender Name Role Phone Nolberto Nicole MD Primary Care Provider [phone] Reason for Visit * Reason Comments Follow-up ra Encounter Details Date Type Department Care Team (Late st Contact Info) Description 01/11/2009 4:15 PM CDT Office Visit [facility] Medical [facility] - Rheumatology [address] [place] [address] [phone] Isidro Heredia MD [address] [place] [address] [phone] Rheumatoid Arthritis (HCC) (Primary Dx) Social History [...] Sign Reading Time Taken Comments Blood Pressure 136/96 01/11/2009 5:19 PM CDT Pulse 80 01/11/2009 5:19 PM CDT Temperature - - Respiratory Rate - - Oxygen Saturation - - Inhaled Oxygen Concentration - - Weight 107 kg (236 lb) 01/11/2009 5:19 PM CDT Height - - Body Mass Index 33.86 12/14/2008 5:35 PM CDT documented in this encounter Progress Notes * Rea Hagan MA - 01/18/2009 11:33 AM CDTQuick Note: Setn letter * Isidro Heredia MD - 01/13/2009 5:15 PM CDTQuick Note: Labs ok * Isidro Heredia MD - 01/11/2009 5:34 PM CDT Subjective: Chalino Deng 48 y.o. [...] No History Drug Use Not on file pt is helping his neck Pain Level: 7/10 Am stiffness 1 HR Global 8/10 Fatigue Y Medication Side Effects N Review of Systems: GENERAL: No fever, chills, [...] No cyanosis, clubbing, edema OTHER: Objective: BP 136/96 Pulse 80 Wt 107.049 kg (236 lb) Tender Joint Count 4 Swollen Joint Count 5 Muscles: Weak or Tender 0 Rheumatoid Nodules: 0 Physical Exam: HEENT perrla, hearing and vision intact, throat clear NECK- supple, no bruits LUNGS- clear, no rales , rhonchi or wheezes HEART- Normal Sinus Rhythm, no S3, S4 or murmurs ABDOMEN- soft, no masses or tenderness, no organomegaly EXTREMITIES- no edema CIRCULATION- Intact SKIN- no rash Good muscle strength w/o tenderness Assessment: Encounter Diagnoses Code Name Primary? 714.0 Rheumatoid Arthritis Yes Plan: Plan Orders Placed This Encounter ??? Oxycodone-acetaminophen 5-325 mg po tabs Follow up in office in 4weeks Same meds No labs today * Rea Hagan MA - 01/11/2009 5:21 PM CDT Chief Complaint Patient presents with ??? Follow-up ra BP 136/96 Pulse 80 Wt 107.049 kg (236 lb) documented in this encounter Plan of Treatment Upcoming Encounters Date Type Department Care Team (Late st Contact Info) Description 06/03/2024 1:00 PM JAVA DEVELOPER ARCHITECT Appointment [facility] - Rheumatology [address] [place] [address] 06/03/2024 2:00 PM JAVA DEVELOPER ARCHITECT Office Visit [facility] - Rheumatology [address] [place] [address] Gloria Smith MD [address] [place] [phone] Scheduled Orders Name Type Priority Associated Diagnoses Orde r Schedule COMPREHENSIVE METABOLIC PANEL Lab Routine Rheumatoid Arthritis (HCC) Ordered: 01/12/2009 documented as of this encounter Procedures Procedure Name Priority Date/Time Associated Diagnosis Comments C-REACTIVE PROTEIN Routine 01/11/2009 5: 23 PM CDT Rheumatoid Arthritis (HCC) ERYTHROCYTE SEDIMENTATION RATE Routine 01/11/2009 5:23 PM CDT Rheumatoid Arthritis (HCC) CBC W AUTO DIFFERENTIAL Routine 01/11/2009 5:23 PM CDT Rheumatoid Arthritis (HCC) documented in this encounter Results * SED RATE WESTERGREN AUTO (01/11/2009 5:23 PM CDT) Erythrocyte Sedimentation Rate Westergren 13 0 - 15 mm/hr [facility] ACCOUNT BILL BLOOD SPECIMEN / Unknown 01/11/2009 5:23 PM CDT 01/11/2009 9:32 PM CDT Narrative Resulting Agency Comment [facility] [address] ??[facility] [phone] Isidro Heredia MD LAB - HEMATOLOGY OR DERABLES [facility] ACCOUNT BILL * C-REACTIVE PROTEIN (CRP) (01/11/2009 5:23 PM CDT) C-Reactive Protein 1.6 0.0 - 4.9 mg/L [facility] ACCOUNT BILL BLOOD SPECIMEN / Unknown 01/11/2009 5:23 PM CDT 01/11/2009 9:32 PM CDT Narrative Resulting Agency Comment [facility] [address] ??[facility] [phone] Isidro Heredia MD LAB - CHEMISTRY ORD ERABLES [facility] ACCOUNT BILL * (ABNORMAL) CBC W AUTO DIFFERENTIAL (01/11/2009 5:23 PM CDT) WBC 11.1(H) 4.0 - 10.5 x10E3/uL [facility] ACCOUNT BILL RBC 4.64 4.10 - 5.60 x10E6/uL [facility] ACCOUNT BILL Hemoglobin 14.5 12.5 - 17.0 g/dL [facility] ACCOUNT BILL Hematocrit 43.0 36.0 - 50.0 % [facility] ACCOUNT BILL MCV 93 80 - 98 fL [facility] ACCOUNT BILL MCH 31.2 27.0 - 34.0 pg [facility] ACCOUNT BILL MCHC 33.7 32.0 - 36.0 g/dL [facility] ACCOUNT BILL RDW 13.6 11.7 - 15.0 % [facility] ACCOUNT BILL Platelet Count 183 140 - 415 x10E3/uL [facility] ACCOUNT BILL Granulocytes % 71 40 - 74 % [facility] ACCOUNT BILL Lymphocytes % 20 14 - 46 % [facility] ACCOUNT BILL Monocytes % 5 4 - 13 % [facility] ACCOUNT BILL Eosinophils % 3 0 - 7 % [facility] ACCOUNT BILL Basophils % 1 0 - 3 % [facility] ACCOUNT BILL Granulocytes Absolute 7.9(H) 1.8 - 7.8 x10E3/uL [facility] ACCOUNT BILL Lymphocytes Absolute 2.2 0.7 - 4.5 x10E3/uL [facility] ACCOUNT BILL Monocytes Absolute 0.6 0.1 - 1.0 x10E3/uL [facility] ACCOUNT BILL Eosinophils Absolute 0.3 0.0 - 0.4 x10E3/uL [facility] ACCOUNT BILL Basophils Absolute 0.1 0.0 - 0.2 x10E3/uL [facility] ACCOUNT BILL Comment Hematology NOT AVAIL. [facility] ACCOUNT BILL BLOOD SPECIMEN / Unknown 01/11/2009 5:23 PM CDT 01/11/2009 9:32 PM CDT Narrative [facility] ACCOUNT BILL - 01/12/2009 8:28 AM CDT Additional Result Information HEMATOLOGY COMMENTS: ??BLOOD,URINE ([facility]): RESULT NOT AVAILABLE Resulting Agency Comment [facility] [address] ??[facility] [phone] Isidro Heredia MD LAB - HEMATOLOGY OR DERABLES [facility] ACCOUNT BILL documented in this encounter Visit Diagnoses Diagnosis Rheumatoid arthritis(714.0) (HCC)- Primary Rheumatoid arthritis documented in this encounter Care Teams Cooling Pan Tender Relationship Specialty Start Date End Date Nolberto Nicole MD PCP - General 07/21/08 12/30/13 documented as of this encounter
--- OUTSIDE RECORDS SUMMARY | 2024-05-03 04:16 | XMS_ITS | Encounter Summary ---
Author Organization [facility] Address [address] [place] [address] Care Team Providers Care Offc Spec Name Role Phone Nolberto Nicole MD Primary Care Provider [phone] Reason for Visit * Reason Comments Follow-up Ra Pain Scale: 7/10 Am Stiffness: 1 -2 hours Sleep: 5 hours Fatigue: yes Encounter Details Date Type Department Care Team (Late st Contact Info) Description 10/03/2010 5:00 PM CDT Office Visit [facility] - Rheumatology [address] [place] [address] Isidro Heredia MD [address] [place] [phone] Rheumatoid arthritis (HCC) (Primary Dx); Triceps [...] Reading Time Taken Comments Blood Pressure 122/80 10/03/2010 5:45 PM CDT Pulse 60 10/03/2010 5:45 PM CDT Temperature - - Respiratory Rate - - Oxygen Saturation - - Inhaled Oxygen Concentration - - Weight 100.7 kg (222 lb) 10/03/2010 5:45 PM CDT Height - - Body Mass Index 31.85 02/08/2009 5:43 PM CDT documented in this encounter Progress Notes * Isidro Heredia MD - 10/03/2010 5:58 PM CDT Subjective: Chalino Deng 49 y.o. male Chief Complaint Patient presents with ??? Follow-up Ra Pain Scale: 7/10 Am Stiffness: 1 -2 hours Sleep: 5 hours Fatigue: yes Current Outpatient Prescriptions on File Prior to [...] Drug Use Not on file on mtx 15 mg q week and humira Pain Level: 7/10 Am stiffness 2 hrs Global 5/10 Fatigue y Medication Side Effects n Review of Systems: GENERAL: No fever, chills, sweats, weight loss EARS: No wax or hearing loss. NOSE: No runny nose, bleeding, sinus drainage MOUTH: No gingivitis or stomatitis GI: No nausea vomiting, abdominal pain, anorexia, On meds For gerd HEART: No chest pain, palpitations, orthopnea, syncope LUNGS: No shortness of breath, cough, pleurisy, wheezing : No nocturia, dysuria, frequency, urgency, kidney stones. SKIN: No rash, itching, dry skin MS: NEURO: No headaches, seizures, dizziness, confusion, numbness, tingling HEME: No bruising or bleeding, swollen glands EXTREMITIES: No cyanosis, clubbing, edema OTHER: Objective: BP 122/80 Pulse 60 Wt 222 lb (100.699 kg) Tender Joint Count 02/24 Swollen Joint Count Muscles: Weak or Tender [...] tac were injected in the right triceps tendon. Patient toleratedprocedure well without complications. Follow up in office in 4 weeks * Rea Hagan MA - 10/03/2010 5:47 PM CDT Chief Complaint Patient presents with ??? Follow-up Ra Pain Scale: 7/10 Am Stiffness: 1 -2 hours Sleep: 5 hours Fatigue: yes BP 122/80 Pulse 60 Wt 222 lb (100.699 kg) documented in this encounter Plan of Treatment Upcoming Encounters Date Type Department Care Team (Late st Contact Info) Description 06/03/2024 1:00 PM ENERGY TRADING ANALYST Appointment [facility] - Rheumatology [address] [place] [address] 06/03/2024 2:00 PM ENERGY TRADING ANALYST Office Visit [facility] - Rheumatology [address] [place] [address] Gloria Smith MD [address] [place] [phone] documented as of this encounter Procedures Procedure Name Priority Date/Time Associated Diagnosis Comments C-REACTIVE PROTEIN Routine 10/03/2010 5: 56 PM CDT Rheumatoid arthritis (HCC) Triceps tendonitis ERYTHROCYTE SEDIMENTATION RATE Routine 10/03/2010 5:56 PM CDT Rheumatoid arthritis (HCC) Triceps tendonitis CBC W AUTO DIFFERENTIAL Routine 10/03/2010 5:56 PM CDT Rheumatoid arthritis (HCC) Triceps tendonitis COMPREHENSIVE METABOLIC PANEL Routine 10/03/2010 5:56 PM CDT Rheumatoid arthritis (HCC) Triceps tendonitis documented in this encounter Results * SED RATE WESTERGREN AUTO (10/03/2010 5:56 PM CDT) Erythrocyte Sedimentation Rate Westergren 23 0 - 23 mm/hr [facility] ACCOUNT BILL Comment:Please note refere nce interval change BLOOD SPECIMEN / Unknown 10/03/2010 5:56 PM CDT 10/03/2010 9:44 PM CDT Narrative Resulting Agency Comment [facility] [address] ??[facility] [phone] Isidro Heredia MD LAB - HEMATOLOGY OR DERABLES [facility] ACCOUNT BILL * C-REACTIVE PROTEIN (10/03/2010 5:56 PM CDT) C-Reactive Protein 3.7 0.0 - 4.9 mg/L [facility] ACCOUNT BILL BLOOD SPECIMEN / Unknown 10/03/2010 5:56 PM CDT 10/03/2010 9:44 PM CDT Narrative Resulting Agency Comment [facility] [address] ??[facility] [phone] Isidro Heredia MD LAB - CHEMISTRY ORD ERABLES [facility] ACCOUNT BILL * (ABNORMAL) COMPREHENSIVE METABOLIC PANEL (10/03/2010 5:56 PM CDT) Glucose 79 65 - 99 mg/dL [facility] ACCOUNT BILL BUN 25(H) 6 - 24 mg/dL [facility] ACCOUNT BILL Creatinine 1.11 0.76 - 1.27 mg/dL [facility] ACCOUNT BILL eGFR by MDRD 79 >59 mL/min/1.7 3 [facility] ACCOUNT BILL eGFR by MDRD 91 >59 mL/min/1.7 3 [facility] ACCOUNT BILL Comment: Note: A persistent eGFR <60 mL/min/1.73 m2 (3 months or more) may indicate chronic kidney disease. An eGFR >59 mL/min/1.73 m2 with an elevated urine protein also may indicate chronic kidney disease. Calculated using CKD-EPI formula. BUN/Creatinine Ratio 23(H) 9 - 20 [facility] [...] 1.2 mg/dL [facility] ACCOUNT BILL Alkaline Phosphatase 114 25 - 150 IU/L [facility] ACCOUNT BILL AST 28 0 - 40 IU/L [facility] ACCOUNT BILL ALT 35 0 - 55 IU/L [facility] ACCOUNT BILL BLOOD SPECIMEN / Unknown 10/03/2010 5:56 PM CDT 10/03/2010 9:44 PM CDT Narrative Resulting Agency Comment [facility] [place] [address] [facility] ??[facility] [phone] Isidro Heredia MD LAB - CHEMISTRY ORD ERABLES [facility] ACCOUNT BILL * (ABNORMAL) CBC W AUTO DIFFERENTIAL (10/03/2010 5:56 PM CDT) WBC 12.8(H) 4.0 - 10.5 x10E3/uL [facility] ACCOUNT BILL RBC 4.48 4.10 - 5.60 x10E6/uL [facility] ACCOUNT BILL Hemoglobin 13.2 12.5 - 17.0 g/dL [facility] ACCOUNT BILL Hematocrit 38.4 36.0 - 50.0 % [facility] ACCOUNT BILL MCV 86 80 - 98 fL [facility] ACCOUNT BILL MCH 29.5 27.0 - 34.0 pg [facility] ACCOUNT BILL MCHC 34.4 32.0 - 36.0 g/dL [facility] ACCOUNT BILL RDW 15.9(H) 11.7 - 15.0 % [facility] ACCOUNT BILL Platelet Count 240 140 - 415 x10E3/uL [facility] ACCOUNT BILL Granulocytes % 64 [...] test is not needed Granulocytes Absolute 8.2(H) 1.8 - 7.8 x10E3/uL [facility] ACCOUNT BILL [...] is not needed BLOOD SPECIMEN / Unknown 10/03/2010 5:56 PM CDT 10/03/2010 9:44 PM CDT Narrative Resulting Agency Comment [facility] [address] ??[facility] [phone] Isidro Heredia MD LAB - HEMATOLOGY OR DERABLES [facility] ACCOUNT BILL documented in this encounter Visit Diagnoses Diagnosis Rheumatoid arthritis(714.0) (HCC)- Primary Rheumatoid arthritis Triceps tendonitis Other enthesopathy of elbow region documented in this encounter Care Teams Offc Spec Relationship Specialty Start Date End Date Nolberto Nicole MD PCP - General 07/21/08 12/30/13 documented as of this encounter
--- OUTSIDE RECORDS SUMMARY | 2024-05-03 04:16 | XMS_ITS | Encounter Summary ---
Author Organization [facility] Address [address] [place] [address] Care Team Providers Care Grounds Supervisor Name Role Phone Nolberto Nicole MD Primary Care Provider [phone] Encounter Details Date Type Department Care Team (Late Contact Info) Description 02/08/2009 Orders Only [facility] - Rheumatology [address] [place] [address] [phone] Isidro Heredia MD [address] [place] [address] [phone] Social History Tobacco Use Types Packs/Day Years Used Date Smoking Tobacco: Never Alcohol Use Standard Drinks/Week Comments No 0 (1 standard drink = 0.6 oz pur e alcohol) Sex and Gender Information Value Date Recorded Sex Assigned at Not on file Gender Identity Not on file Sexual Orientation Not on file documented as of this encounter Progress Notes * Isidro Heredia MD - 02/10/2009 4:58 PM CDTQuick Note: Mtx ok documented in this encounter Plan of Treatment Upcoming Encounters Date Type Department Care Team (Late Contact Info) Description 06/03/2024 1:00 PM RESEARCH ANALYST Appointment [facility] - Rheumatology [address] [place] [address] 06/03/2024 2:00 PM RESEARCH ANALYST Office Visit [facility] - Rheumatology [address] [place] [phone] Gloria Smith MD [address] [place] [address] [place] [phone] documented as of this encounter Procedures Procedure Name Priority Date/Time Associated Diagnosis Comments C-REACTIVE PROTEIN 02/08/2009 6: 07 PM CDT CBC W AUTO DIFFERENTIAL 02/08/2009 6:07 PM CDT COMPREHENSIVE METABOLIC PANEL 02/08/2009 6:07 PM CDT documented in this encounter Results * C-REACTIVE PROTEIN (02/08/2009 6:07 PM CDT) C-Reactive Protein 2.5 0.0 - 4.9 mg/L [facility] ACCOUNT BILL 02/08/2009 6:07 PM CDT 02/08/2009 9:30 PM CDT Narrative Resulting Agency Comment [facility] [address] ??[facility] [phone] Isidro Heredia MD LAB - CHEMISTRY ORD ERABLES [facility] ACCOUNT BILL * COMPREHENSIVE METABOLIC PANEL (02/08/2009 6:07 PM CDT) Glucose 90 65 - 99 mg/dL [facility] ACCOUNT BILL BUN 18 5 - 26 mg/dL [facility] ACCOUNT BILL Creatinine 1.03 0.76 - 1.27 mg/dL [facility] ACCOUNT BILL [...] may be found at [email or web address]. BUN/Creatinine Ratio 17 8 - 27 [facility] ACCOUNT BILL Sodium 139 135 - 145 mmol/L [facility] ACCOUNT BILL Potassium 4.3 3.5 - 5.2 mmol/L [facility] ACCOUNT BILL Chloride 101 97 - 108 mmol/L [facility] ACCOUNT BILL CO2 21 20 - 32 mmol/L [facility] ACCOUNT BILL Calcium 9.8 8.5 - 10.6 mg/dL [facility] ACCOUNT BILL Protein Total 7.7 6.0 - 8.5 g/dL [facility] ACCOUNT BILL Albumin 4.7 3.5 - 5.5 g/dL [facility] ACCOUNT BILL Globulin Total 3.0 1.5 - 4.5 g/dL [facility] ACCOUNT BILL Albumin/Globulin Ratio 1.6 1.1 - 2.5 [facility] ACCOUNT BILL Bilirubin Total 0.4 0.1 - 1.2 mg/dL [facility] ACCOUNT BILL Alkaline Phosphatase 106 25 - 150 IU/L [facility] ACCOUNT BILL AST 27 0 - 40 IU/L [facility] ACCOUNT BILL ALT 36 0 - 55 IU/L [facility] ACCOUNT BILL 02/08/2009 6:07 PM CDT 02/08/2009 9:30 PM CDT Narrative Resulting Agency Comment [facility] [address] ??[facility] [phone] Isidro Heredia MD LAB - CHEMISTRY ORD ERABLES [facility] ACCOUNT BILL * CBC W AUTO DIFFERENTIAL (02/08/2009 6:07 PM CDT) WBC 7.3 4.0 - 10.5 x10E3/uL [facility] ACCOUNT BILL RBC 4.76 4.10 - 5.60 x10E6/uL [facility] ACCOUNT BILL Hemoglobin 14.2 12.5 - 17.0 g/dL [facility] ACCOUNT BILL Hematocrit 43.3 36.0 - 50.0 % [facility] ACCOUNT BILL MCV 91 80 - 98 fL [facility] ACCOUNT BILL MCH 29.9 27.0 - 34.0 pg [facility] ACCOUNT BILL MCHC 32.8 32.0 - 36.0 g/dL [facility] ACCOUNT BILL RDW 13.4 11.7 - 15.0 % [facility] ACCOUNT BILL Platelet Count 181 140 - 415 x10E3/uL [facility] ACCOUNT BILL Granulocytes % 67 40 - 74 % [facility] ACCOUNT BILL Lymphocytes % 27 14 - 46 % [facility] ACCOUNT BILL Monocytes % 4 4 - 13 % [facility] ACCOUNT BILL Eosinophils % 1 0 - 7 % [facility] ACCOUNT BILL Basophils % 1 0 - 3 % [facility] ACCOUNT BILL Granulocytes Absolute 4.9 1.8 - 7.8 x10E3/uL [facility] ACCOUNT BILL Lymphocytes Absolute 2.0 0.7 - 4.5 x10E3/uL [facility] ACCOUNT BILL Monocytes Absolute 0.3 0.1 - 1.0 x10E3/uL [facility] ACCOUNT BILL Eosinophils Absolute 0.1 0.0 - 0.4 x10E3/uL [facility] ACCOUNT BILL Basophils Absolute 0.1 0.0 - 0.2 x10E3/uL [facility] ACCOUNT BILL Comment Hematology NOT AVAIL. [facility] ACCOUNT BILL 02/08/2009 6:07 PM CDT 02/08/2009 9:30 PM CDT Narrative [facility] ACCOUNT BILL - 02/09/2009 7:21 AM CDT Additional Result Information HEMATOLOGY COMMENTS: ??BLOOD,URINE ([facility]): RESULT NOT AVAILABLE Resulting Agency Comment [facility] [address] ??[facility] [phone] Isidro Heredia MD LAB - HEMATOLOGY OR DERABLES [facility] ACCOUNT BILL documented in this encounter Visit Diagnoses Not on filedocumented in this encounter Care Teams Grounds Supervisor Relationship Specialty Start Date End Date Nolberto Nicole MD PCP - General 07/21/08 12/30/13 documented as of this encounter
--- OUTSIDE RECORDS SUMMARY | 2024-05-03 04:16 | XMS_ITS | Encounter Summary ---
Author Organization [facility] Address [address] [place] [address] Care Team Providers Care Lumber Straightener Name Role Phone Nolberto Nicole MD Primary Care Provider [phone] Encounter Details Date Type Department Care Team (Late Contact Info) Description 10/12/2008 Orders Only [facility] - Rheumatology [address] [place] [address] Isidro Heredia MD [address] [place] [phone] Social History Tobacco Use Types Packs/Day [...] (Late Contact Info) Description 06/03/2024 1:00 PM PHYSICIAN OFFICE REP Appointment [facility] - Rheumatology [address] [place] [address] 06/03/2024 2:00 PM PHYSICIAN OFFICE REP Office Visit [facility] - Rheumatology [address] [place] [address] Gloria Smith MD [address] [place] [phone] documented as of this encounter Procedures Procedure Name Priority Date/Time Associated Diagnosis Comments RHEUMATOID FACTOR BLOOD QUANTITATIVE 10/12/2008 6:16 PM CDT documented in this encounter Results * RHEUMATOID FACTOR BLOOD QUANTITATIVE (10/12/2008 6:16 PM CDT) Rheumatoid Factor 4.7 0.0 - 13.9 IU/mL [facility] ACCOUNT BILL 10/12/2008 6:16 PM CDT 10/12/2008 9:22 PM CDT Narrative Resulting Agency Comment [facility] [address] ??[facility] [phone] Isidro Heredia MD LAB - CHEMISTRY ORD ERABLES [facility] ACCOUNT BILL documented in this encounter Visit Diagnoses Not on filedocumented in this encounter Care Teams Lumber Straightener Relationship Specialty Start Date End Date Nolberto Nicole MD PCP - General 07/21/08 12/30/13 documented as of this encounter
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
--- OUTSIDE RECORDS SUMMARY | 2024-05-03 04:16 | XMS_ITS | Encounter Summary ---
Author Organization [facility] Address [address] [place] [address] [place] [address] Care Team Providers Care Histology Manager Name Role Phone Nolberto Nicole MD Primary Care Provider [phone] Reason for Visit * Reason Comments Follow-up ra Encounter Details Date Type Department Care Team (Late st Contact Info) Description 03/08/2009 4:00 PM FORENSIC SOCIAL WORKER Office Visit [facility] - Rheumatology [address] [place] [phone] Isidro Heredia MD [address] [place], [place] [phone] Rheumatoid Arthritis (HCC) (Primary Dx); Osteopenia Social [...] Reading Time Taken Comments Blood Pressure 128/80 03/08/2009 4:03 PM FORENSIC SOCIAL WORKER Pulse 92 03/08/2009 4:03 PM FORENSIC SOCIAL WORKER Temperature - - Respiratory Rate - - Oxygen Saturation - - Inhaled Oxygen Concentration - - Weight 108.9 kg (240 lb) 03/08/2009 4:03 PM FORENSIC SOCIAL WORKER Height - - Body Mass Index 34.44 02/08/2009 5:43 PM CDT documented in this encounter Progress Notes * Rea Hagan MA - 06/17/2009 11:47 AM CSTQuick Note: Sent lab letter to pt re labs NSIC SOCIAL WORKER * Isidro Heredia MD - 06/13/2009 7:57 AM CSTQuick Note: Mtx ok NSIC SOCIAL WORKER * Rea Hagan MA - 03/18/2009 4:48 PM CSTQuick Note: Sent letter NSIC SOCIAL WORKER * Isidro Heredia MD - 03/14/2009 6:32 PM CSTQuick Note: Mtx ok NSIC SOCIAL WORKER * Isidro Heredia MD - 03/08/2009 4:43 PM CST Subjective: Chalino Deng 48 y.o. male Chief Complaint Patient presents with ??? Follow-up ra Current outpatient prescriptions prior to encounter Medication Sig Dispense Refill ??? esomeprazole (NEXIUM) 40 MG capsule Take 1 Cap by mouth daily before breakfast. 90 3 ??? Methotrexate (Anti-Rheumatic) 2.5 MG TABS [...] History Drug Use Not on file good resultswith local steroids right shoulder. Pt on neck slowly better Pain Level: 8/10 Am stiffness 1 hr Global 8/10 Fatigue [...] No cyanosis, clubbing, edema OTHER: Objective: BP 128/80 Pulse 92 Wt 108.863 kg (240 lb) Tender Joint Count 25/28 Swollen Joint Count 16/28 Muscles: Weak or Tender 0 Rheumatoid Nodules: [...] ??? Oxycodone-acetaminophen 5-325 mg po tabs ??? Diclofenac sodium 1 % ex gel (discontinued) ??? Diclofenac sodium 1 % ex gel Follow up in office in 4 weeks NSIC SOCIAL WORKER * Rea Hagan MA - 03/08/2009 4:04 PM CST Chief Complaint Patient presents with ??? Follow-up ra BP 128/80 Pulse 92 Wt 108.863 kg (240 lb) NSIC SOCIAL WORKER documented in this encounter Plan of Treatment Upcoming Encounters Date Type Department Care Team (Late st Contact Info) Description 06/03/2024 1:00 PM FORENSIC SOCIAL WORKER Appointment [facility] - Rheumatology [address] [place] [address] 06/03/2024 2:00 PM FORENSIC SOCIAL WORKER Office Visit [facility] - Rheumatology [address] [place] [address] Gloria Smith MD [address] [place] [phone] documented as of this encounter Procedures Procedure Name Priority Date/Time Associated Diagnosis Comments CBC W AUTO DIFFERENTIAL Routine 06/07/2009 5:41 PM FORENSIC SOCIAL WORKER Rheumatoid Arthritis (HCC) COMPREHENSIVE METABOLIC PANEL Routine 06/07/2009 5:41 PM FORENSIC SOCIAL WORKER Rheumatoid Arthritis (HCC) C-REACTIVE PROTEIN Routine 03/08/2009 4: 28 PM FORENSIC SOCIAL WORKER Rheumatoid Arthritis (HCC) ERYTHROCYTE SEDIMENTATION RATE Routine 03/08/2009 4:28 PM FORENSIC SOCIAL WORKER Rheumatoid Arthritis (HCC) documented in this encounter Results * COMPREHENSIVE METABOLIC PANEL (06/07/2009 5:41 PM FORENSIC SOCIAL WORKER) Glucose 90 65 - 99 mg/dL [facility] ACCOUNT BILL BUN 18 5 - 26 mg/dL [facility] ACCOUNT BILL Creatinine 0.79 0.76 - 1.27 mg/dL [facility] ACCOUNT BILL [...] may be found at www.kdoqi.org. BUN/Creatinine Ratio 23 8 - 27 [facility] ACCOUNT BILL Sodium [...] [facility] ACCOUNT BILL BLOOD SPECIMEN / Unknown 06/07/2009 5:41 PM FORENSIC SOCIAL WORKER 06/07/2009 9:20 PM FORENSIC SOCIAL WORKER Narrative Resulting Agency Comment [facility] [address] ??[facility] [phone] Isidro Heredia MD LAB - CHEMISTRY ORD ERABLES [facility] ACCOUNT BILL * CBC W AUTO DIFFERENTIAL (06/07/2009 5:41 PM FORENSIC SOCIAL WORKER) WBC 10.4 4.0 - 10.5 x10E3/uL [facility] ACCOUNT BILL RBC 4.43 4.10 - 5.60 x10E6/uL [facility] ACCOUNT BILL Hemoglobin 13.5 12.5 - 17.0 g/dL [facility] ACCOUNT BILL Hematocrit 40.3 36.0 - 50.0 % [facility] ACCOUNT BILL MCV 91 80 - 98 fL [facility] ACCOUNT BILL MCH 30.5 27.0 - 34.0 pg [facility] ACCOUNT BILL MCHC 33.5 32.0 - 36.0 g/dL [facility] ACCOUNT BILL RDW 14.8 11.7 - 15.0 % [facility] ACCOUNT BILL Platelet Count 169 140 - 415 x10E3/uL [facility] ACCOUNT BILL Granulocytes % 61 40 - 74 % [facility] ACCOUNT BILL Lymphocytes % 32 14 - 46 % [facility] ACCOUNT BILL Monocytes % 5 4 - 13 % [facility] ACCOUNT BILL Eosinophils % 2 0 - 7 % [facility] ACCOUNT BILL Basophils % 0 0 - 3 % [facility] ACCOUNT BILL Immature Cells NOT AVAIL. [facility] ACCOUNT BILL Granulocytes Absolute 6.3 1.8 - 7.8 x10E3/uL [facility] ACCOUNT BILL [...] [facility] ACCOUNT BILL BLOOD SPECIMEN / Unknown 06/07/2009 5:41 PM FORENSIC SOCIAL WORKER 06/07/2009 9:20 PM FORENSIC SOCIAL WORKER Narrative [facility] ACCOUNT BILL - 06/08/2009 7:22 AM FORENSIC SOCIAL WORKER Additional Result Information IMMATURE CELLS ([facility]): RESULT NOT AVAILABLE IMMATURE GRANULOCYTES ([facility]): RESULT NOT AVAILABLE IMMATURE GRANS (ABS) ([facility]): RESULT NOT AVAILABLE NRBC ([facility]): RESULT NOT AVAILABLE HEMATOLOGY COMMENTS: ??BLOOD,URINE ([facility]): RESULT NOT AVAILABLE Resulting Agency Comment [facility] [place] [address] ??[facility] [phone] Isidro Heredia MD LAB - HEMATOLOGY OR DERABLES Performing Organization Address City/[facility]/ZIP Co de Phone Number [facility] ACCOUNT BILL * SED RATE WESTERGREN AUTO (03/08/2009 4:28 PM FORENSIC SOCIAL WORKER) Erythrocyte Sedimentation Rate Westergren 7 0 - 15 mm/hr [facility] ACCOUNT BILL BLOOD SPECIMEN / Unknown 03/08/2009 4:28 PM FORENSIC SOCIAL WORKER 03/08/2009 9:28 PM FORENSIC SOCIAL WORKER Narrative Resulting Agency Comment [facility] [place] [address] ??[facility] [phone] Isidro Heredia MD LAB - HEMATOLOGY OR DERABLES Performing Organization Address City/[facility] Co de Phone Number [facility] ACCOUNT BILL * C-REACTIVE PROTEIN (03/08/2009 4:28 PM FORENSIC SOCIAL WORKER) C-Reactive Protein 2.4 0.0 - 4.9 mg/L [facility] ACCOUNT BILL BLOOD SPECIMEN / Unknown 03/08/2009 4:28 PM FORENSIC SOCIAL WORKER 03/08/2009 9:28 PM FORENSIC SOCIAL WORKER Narrative Resulting Agency Comment [facility] [place] [address] ??[facility] [phone] Isidro Heredia MD LAB - CHEMISTRY ORD ERABLES Performing Organization Address City/[facility] Co de Phone Number [facility] ACCOUNT BILL documented in this encounter Visit Diagnoses Diagnosis Rheumatoid arthritis(714.0) ([facility])- Primary Rheumatoid arthritis Osteopenia Disorder of bone and cartilage, unspecified documented in this encounter Care Teams Histology Manager Relationship Specialty Start Date End Date Nolberto Nicole MD PCP - General 07/21/08 12/30/13 documented as of this encounter
--- OUTSIDE RECORDS SUMMARY | 2024-05-03 04:16 | XMS_ITS | Encounter Summary ---
Author Organization [facility] Address [address] [place] [address] [place] [address] Care Team Providers Care Digital Printer Name Role Phone Nolberto Nicole MD Primary Care Provider [phone] Reason for Visit * Reason Comments Follow-up ra Encounter Details Date Type Department Care Team (Late st Contact Info) Description 04/05/2009 3:00 PM MOBILE HOME LABORER Office Visit [facility] - Rheumatology [address] [place] [phone] Isidro Heredia MD [address] [place] [address] Rheumatoid Arthritis (HCC) (Primary Dx) Social History [...] Reading Time Taken Comments Blood Pressure 130/74 04/05/2009 3:07 PM MOBILE HOME LABORER Pulse 84 04/05/2009 3:07 PM MOBILE HOME LABORER Temperature - - Respiratory Rate - - Oxygen Saturation - - Inhaled Oxygen Concentration - - Weight 107.5 kg (237 lb) 04/05/2009 3:07 PM MOBILE HOME LABORER Height - - Body Mass Index 34.01 02/08/2009 5:43 PM CDT documented in this encounter Progress Notes * Rea Hagan MA - 04/13/2009 1:04 PM CSTQuick Note: Sent letter LE HOME LABORER * Isidro Heredia MD - 04/11/2009 6:52 PM CSTQurolando Note: Mtx ok LE HOME LABORER * Isidro Heredia MD - 04/05/2009 3:37 PM CST Subjective: Chalino Deng 48 y.o. male Chief Complaint Patient presents with ??? Follow-up ra Current outpatient prescriptions prior to encounter Medication Sig Dispense Refill ??? diclofenac sodium (VOLTAREN) 1 % gel Apply 2 g to affected area 4 times daily. 1 6 ??? esomeprazole (NEXIUM) 40 MG capsule [...] History Drug Use Not on file doing better Pain Level: 6/10 Am stiffness 1 hr better with hot shower Global 7/10 Fatigue occ Medication Side Effects n Review of Systems: [...] No cyanosis, clubbing, edema OTHER: Objective: BP 130/74 Pulse 84 Wt 107.502 kg (237 lb) Tender Joint Count 10/25 Swollen Joint Count 12/25 Muscles: Weak or Tender Rheumatoid Nodules: Physical Exam: HEENT perrla, hearing and vision [...] Comprehensive metabolic panel ??? C-reactive protein ??? Rheumatoid factor blood quantitative ??? Oxycodone-acetaminophen 5-325 mg po tabs Follow up in office in 4 weeks LE HOME LABORER * Rea Hagan MA - 04/05/2009 3:09 PM CST Chief Complaint Patient presents with ??? Follow-up ra BP 130/74 Pulse 84 Wt 107.502 kg (237 lb) LE HOME LABORER documented in this encounter Plan of Treatment Upcoming Encounters Date Type Department Care Team (Late st Contact Info) Description 06/03/2024 1:00 PM MOBILE HOME LABORER Appointment [facility] - Rheumatology [address] [place] [address] 06/03/2024 2:00 PM MOBILE HOME LABORER Office Visit [facility] - Rheumatology [address] [place] [address] [phone] Gloria Smith MD [address] [place] [phone] documented as of this encounter Procedures Procedure Name Priority Date/Time Associated Diagnosis Comments RHEUMATOID FACTOR BLOOD QUANTITATIVE Routine 04/05/2009 3:13 PM MOBILE HOME LABORER Rheumatoid Arthritis (HCC) C-REACTIVE PROTEIN Routine 04/05/2009 3: 13 PM MOBILE HOME LABORER Rheumatoid Arthritis (HCC) CBC W AUTO DIFFERENTIAL Routine 04/05/2009 3:13 PM MOBILE HOME LABORER Rheumatoid Arthritis (HCC) COMPREHENSIVE METABOLIC PANEL Routine 04/05/2009 3:13 PM MOBILE HOME LABORER Rheumatoid Arthritis (HCC) documented in this encounter Results * RHEUMATOID FACTOR BLOOD QUANTITATIVE (04/05/2009 3:13 PM MOBILE HOME LABORER) Rheumatoid Factor 8.0 0.0 - 13.9 IU/mL [facility] ACCOUNT BILL BLOOD SPECIMEN / Unknown 04/05/2009 3:13 PM MOBILE HOME LABORER 04/05/2009 10:32 PM MOBILE HOME LABORER Narrative Resulting Agency [facility] [address] [facility] ??[facility] [phone] Isidro Heredia MD LAB - CHEMISTRY ORD ERABLES [facility] ACCOUNT BILL * C-REACTIVE PROTEIN (04/05/2009 3:13 PM MOBILE HOME LABORER) C-Reactive Protein 3.6 0.0 - 4.9 mg/L [facility] ACCOUNT BILL BLOOD SPECIMEN / Unknown 04/05/2009 3:13 PM MOBILE HOME LABORER 04/05/2009 10:32 PM MOBILE HOME LABORER Narrative Resulting Agency Comment [facility] [place] [phone] ??[facility] [phone] Isidro Heredia MD LAB - CHEMISTRY ORD ERABLES [facility] ACCOUNT BILL * COMPREHENSIVE METABOLIC PANEL (04/05/2009 3:13 PM MOBILE HOME LABORER) Glucose 93 65 - 99 mg/dL [facility] ACCOUNT BILL BUN 15 5 - 26 mg/dL [facility] ACCOUNT BILL [...] may be found at www.kdoqi.org. BUN/Creatinine Ratio 16 8 - 27 [facility] ACCOUNT BILL Sodium [...] - 40 IU/L [facility] ACCOUNT BILL ALT 29 0 - 55 IU/L [facility] ACCOUNT BILL BLOOD SPECIMEN / Unknown 04/05/2009 3:13 PM MOBILE HOME LABORER 04/05/2009 10:32 PM MOBILE HOME LABORER Narrative Resulting Agency Comment [facility] [place] [phone] [facility] ??[facility] [phone] Isidro Heredia MD LAB - CHEMISTRY ORD ERABLES [facility] ACCOUNT BILL * CBC W AUTO DIFFERENTIAL (04/05/2009 3:13 PM MOBILE HOME LABORER) WBC 8.6 4.0 - 10.5 x10E3/uL [facility] ACCOUNT BILL RBC 4.32 4.10 - 5.60 x10E6/uL [facility] ACCOUNT BILL Hemoglobin 13.4 12.5 - 17.0 g/dL [facility] ACCOUNT BILL Hematocrit 39.0 36.0 - 50.0 % [facility] ACCOUNT BILL MCV 90 80 - 98 fL [facility] ACCOUNT BILL MCH 30.9 27.0 - 34.0 pg [facility] ACCOUNT BILL MCHC 34.3 32.0 - 36.0 g/dL [facility] ACCOUNT BILL RDW 14.8 11.7 - 15.0 % [facility] ACCOUNT BILL Platelet Count 157 140 - 415 x10E3/uL [facility] ACCOUNT BILL Granulocytes % 44 40 - 74 % [facility] ACCOUNT BILL Lymphocytes % 45 14 - 46 % [facility] ACCOUNT BILL Monocytes % 7 4 - 13 % [facility] ACCOUNT BILL Eosinophils % 3 0 - 7 % [facility] ACCOUNT BILL Basophils % 1 0 - 3 % [facility] ACCOUNT BILL Granulocytes Absolute 3.8 1.8 - 7.8 x10E3/uL [facility] ACCOUNT BILL Lymphocytes Absolute 3.9 0.7 - 4.5 x10E3/uL [facility] ACCOUNT BILL Monocytes Absolute 0.6 0.1 - 1.0 x10E3/uL [facility] ACCOUNT BILL Eosinophils Absolute 0.3 0.0 - 0.4 x10E3/uL [facility] ACCOUNT BILL Basophils Absolute 0.1 0.0 - 0.2 x10E3/uL [facility] ACCOUNT BILL Comment Hematology NOT AVAIL. [facility] ACCOUNT BILL BLOOD SPECIMEN / Unknown 04/05/2009 3:13 PM MOBILE HOME LABORER 04/05/2009 10:32 PM MOBILE HOME LABORER Narrative [facility] ACCOUNT BILL - 04/06/2009 8:31 AM MOBILE HOME LABORER Additional Result Information HEMATOLOGY COMMENTS: ??BLOOD,URINE ([facility]): RESULT NOT AVAILABLE Resulting Agency Comment [facility] [address] ??[facility] [phone] Isidro Heredia MD LAB - HEMATOLOGY OR DERABLES Performing Organization Address City/State/[facility] Co de Phone Number [facility] ACCOUNT BILL documented in this encounter Visit Diagnoses Diagnosis Rheumatoid arthritis(714.0) ([facility])- Primary Rheumatoid arthritis documented in this encounter Care Teams Digital Printer Relationship Specialty Start Date End Date Nolberto Nicole MD PCP - General 07/21/08 12/30/13 documented as of this encounter
--- OUTSIDE RECORDS SUMMARY | 2024-05-03 04:16 | XMS_ITS | Encounter Summary ---
Author Organization [facility] Address [address] [facility] [place] [address] Care Team Providers Care Emergency Planning And Response Manager Name Role Phone Nolberto Nicole MD Primary Care Provider [phone] Reason for Visit * Reason Onset Date Comments Letter 09/14/2008 Encounter Details Date Type Department Care Team (Late st Contact Info) Description 09/14/2008 Telephone [facility] - Rheumatology [address] [place], [place] [phone] Isidro Heredia MD [address] [place] [address] Letter Social History Tobacco Use Types Packs/Day Years Used Date Smoking Tobacco: Never Alcohol Use Standard Drinks/Week Comments No 0 (1 standard drink = 0.6 oz pur e alcohol) Sex and Gender Information Value Date Recorded Sex Assigned at Not on file Gender Identity Not on file Sexual Orientation Not on file documented as of this encounter Miscellaneous Notes * Telephone Encounter - Emily Salinas RN - 09/15/2008 11:30 AM CDT Patient need update letter re: [facility] condition for [facility]. He also need records sent to [facility] from 02/06/07 to present. He also had an MRI neck done for chronic neck pain and showed C5C6 cervical Spondylitis. Faxed medical records release form to [phone] for medical records release request * Telephone Encounter - Evert Pisanomy - 09/14/2008 2:00 PM CDT Patient called in a needs a letter for [facility] documented in this encounter Plan of Treatment Upcoming Encounters Date Type Department Care Team (Late st Contact Info) Description 06/03/2024 1:00 PM APPLICATIONS ENGINEER MANUFACTURING Appointment [facility] - Rheumatology [address] [place] [address] [phone] 06/03/2024 2:00 PM APPLICATIONS ENGINEER MANUFACTURING Office Visit [facility] - Rheumatology [address] [place] [phone] Gloria Smith MD [address] [place] [phone] documented as of this encounter Visit Diagnoses Not on filedocumented in this encounter Care Teams Emergency Planning And Response Manager Relationship Specialty Start Date End Date Nolberto Nicole MD PCP - General 07/21/08 12/30/13 documented as of this encounter
--- OUTSIDE RECORDS SUMMARY | 2024-05-03 04:16 | XMS_ITS | Encounter Summary ---
Author Organization [facility] Address [address] [place] [address] Care Team Providers Care Model Builder Name Role Phone Nolberto Nicole MD Primary Care Provider [phone] Reason for Visit * Reason Comments Shoulder Pain left. rt hurt little General pt has stopped the h umira injection due to fungal infection x 4 months. Pain Joint Pain Side rt. very tender to t ouch Encounter Details Date Type Department Care Team (Late st Contact Info) Description 06/27/2010 4:00 PM INTERNAL CONSULTANT Office Visit [facility] - Rheumatology [address] [place] [address] Isidro Heredia MD [address] [place] [address] [phone] Rheumatoid arthritis (HCC) (Primary Dx); Fungus infection Social History Tobacco Use Types Packs/Day Years [...] Sign Reading Time Taken Comments Blood Pressure 140/86 06/27/2010 4:21 PM INTERNAL CONSULTANT Pulse 96 06/27/2010 4:21 PM INTERNAL CONSULTANT Temperature - - Respiratory Rate - - Oxygen Saturation - - Inhaled Oxygen Concentration - - Weight 112 kg (247 lb) 06/27/2010 4:21 PM INTERNAL CONSULTANT Height - - Body Mass Index 35.44 02/08/2009 5:43 PM CDT documented in this encounter Progress Notes * Yamileth Rodríguez MA - 07/02/2010 3:42 PM CSTQuick Note: Letter mailed to patient regarding lab results. RNAL CONSULTANT * Isidro Heredia MD - 07/02/2010 7:09 AM CSTQuick Note: mtx ok Wbc Sl inc due to recent infection RNAL CONSULTANT * Isidro Heredia MD - 06/27/2010 5:00 PM CST Subjective: Chalino Deng 49 y.o. male Chief Complaint Patient presents with ??? Shoulder Pain left. rt hurt little ??? General pt has stopped the humira injection due to fungal infection x 4 months. ??? Pain Joint ??? Pain Side rt. 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 714.0 Rheumatoid arthritis Yes ??? 117.9W Fungus infection Plan: Plan Orders Placed This Encounter ??? CBC W AUTO DIFFERENTIAL ??? COMPREHENSIVE METABOLIC PANEL ??? C-REACTIVE PROTEIN ??? SED RATE WESTERGREN AUTO ??? oxycodone-acetaminophen (PERCOCET) 5-325 MG tablet Sig: Take 1 Tab by mouth every 6 hours as needed for Pain. Dispense: 120 Tab Refill: 0 ??? fluconazole (DIFLUCAN) 100 MG tablet Sig: Take 1 Tab by mouth daily. Dispense: 14 Tab Refill: 0 Follow up in office in 4 weeks RNAL CONSULTANT * Rea Hagan MA - 06/27/2010 4:21 PM CST Chief Complaint Patient presents with ??? Shoulder Pain left. rt hurt little ??? General pt has stopped the humira injection due to fungal infection x 4 months. ??? Pain Joint ??? Pain Side rt. very tender to touch BP 140/86 Pulse 96 Wt 247 lb (112.038 kg) RNAL CONSULTANT documented in this encounter Plan of Treatment Upcoming Encounters Date Type Department Care Team (Late st Contact Info) Description 06/03/2024 1:00 PM INTERNAL CONSULTANT Appointment [facility] - Rheumatology [address] [place] [address] 06/03/2024 2:00 PM INTERNAL CONSULTANT Office Visit [facility] - Rheumatology [address] [place] [address] Gloria Smith MD [address] [place] [phone] documented as of this encounter Procedures Procedure Name Priority Date/Time Associated Diagnosis Comments ERYTHROCYTE SEDIMENTATION RATE Routine 06/27/2010 4:46 PM INTERNAL CONSULTANT Rheumatoid arthritis (HCC) CBC W AUTO DIFFERENTIAL Routine 06/27/2010 4:46 PM INTERNAL CONSULTANT Rheumatoid arthritis (HCC) C-REACTIVE PROTEIN Routine 06/27/2010 4: 45 PM INTERNAL CONSULTANT Rheumatoid arthritis (HCC) COMPREHENSIVE METABOLIC PANEL Routine 06/27/2010 4:45 PM INTERNAL CONSULTANT Rheumatoid arthritis (HCC) documented in this encounter Results * (ABNORMAL) SED RATE WESTERGREN AUTO (06/27/2010 4:46 PM INTERNAL CONSULTANT) Erythrocyte Sedimentation Rate Westergren 22(H) 0 - 15 mm/hr [facility] ACCOUNT BILL BLOOD SPECIMEN / Unknown 06/27/2010 4:46 PM INTERNAL CONSULTANT 06/27/2010 10:21 PM INTERNAL CONSULTANT Narrative Resulting Agency Comment [facility] [address] ??[facility] [phone] Isidro Heredia MD LAB - HEMATOLOGY OR DERABLES [facility] ACCOUNT BILL * (ABNORMAL) CBC W AUTO DIFFERENTIAL (06/27/2010 4:46 PM INTERNAL CONSULTANT) WBC 13.3(H) 4.0 - 10.5 x10E3/uL [facility] ACCOUNT BILL RBC 4.44 4.10 - 5.60 x10E6/uL [facility] ACCOUNT BILL [...] test is not needed Granulocytes Absolute 8.5(H) 1.8 - 7.8 x10E3/uL [facility] ACCOUNT BILL [...] is not needed BLOOD SPECIMEN / Unknown 06/27/2010 4:46 PM INTERNAL CONSULTANT 06/27/2010 10:21 PM INTERNAL CONSULTANT Narrative Resulting Agency Comment [facility] [address] ??[facility] [phone] Isidro Heredia MD LAB - HEMATOLOGY OR DERABLES Performing Organization Address [facility] de Phone Number [facility] ACCOUNT BILL * (ABNORMAL) C-REACTIVE PROTEIN (06/27/2010 4:45 PM INTERNAL CONSULTANT) C-Reactive Protein 5.8(H) 0.0 - 4.9 mg/L [facility] ACCOUNT BILL BLOOD SPECIMEN / Unknown 06/27/2010 4:45 PM INTERNAL CONSULTANT 06/27/2010 9:16 PM INTERNAL CONSULTANT Narrative Resulting Agency Comment [facility] [address] ??[facility] [phone] Isidro Heredia MD LAB - CHEMISTRY ORD ERABLES Performing Organization Address City/[facility]/ZIP Co de Phone Number [facility] ACCOUNT BILL * (ABNORMAL) COMPREHENSIVE METABOLIC PANEL (06/27/2010 4:45 PM INTERNAL CONSULTANT) Glucose 85 65 - 99 mg/dL [facility] ACCOUNT BILL BUN 20 6 - 24 mg/dL [facility] ACCOUNT BILL [...] may be found at [email or web address]. BUN/Creatinine Ratio 21(H) 9 - 20 [facility] [...] [facility] ACCOUNT BILL BLOOD SPECIMEN / Unknown 06/27/2010 4:45 PM INTERNAL CONSULTANT 06/27/2010 9:16 PM INTERNAL CONSULTANT Narrative Resulting Agency Comment [facility] [address] ??[facility] [phone] Isidro Heredia MD LAB - CHEMISTRY ORD ERABLES [facility] ACCOUNT BILL documented in this encounter Visit Diagnoses Diagnosis Rheumatoid arthritis(714.0) (HCC)- Primary Rheumatoid arthritis Fungus infection Other and unspecified mycoses documented in this encounter Care Teams Model Builder Relationship Specialty Start Date End Date Nolberto Nicole MD PCP - General 07/21/08 12/30/13 documented as of this encounter
--- OUTSIDE RECORDS SUMMARY | 2024-05-03 04:16 | XMS_ITS | Encounter Summary ---
Author Organization [facility] Address [address] [place] [address] Care Team Providers Care Research Statistician Name Role Phone Nolberto Nicole MD Primary Care Provider [phone] Encounter Details Date Type Department Care Team (Late Contact Info) Description 11/08/2009 Orders Only [facility] - Rheumatology [address] [place] [address] Isidro Heredia MD [address] [place] [phone] Social History Tobacco Use Types Packs/Day [...] Info) Description 06/03/2024 1:00 PM DIRECTOR OF REIMBURSEMENT Appointment [facility] - Rheumatology [address] [place] [address] 06/03/2024 2:00 PM DIRECTOR OF REIMBURSEMENT Office Visit [facility] - Rheumatology [address] [place] [address] Gloria Simth MD [address] [place] [phone] documented as of this encounter Procedures Procedure Name Priority Date/Time Associated Diagnosis Comments CBC W AUTO DIFFERENTIAL 11/08/2009 5:18 PM CDT documented in this encounter Results * CBC W AUTO DIFFERENTIAL (11/08/2009 5:18 PM CDT) WBC 9.8 4.0 - 10.5 x10E3/uL [facility] ACCOUNT BILL RBC 4.30 4.10 - 5.60 x10E6/uL [facility] ACCOUNT BILL Hemoglobin 12.7 12.5 - 17.0 g/dL [facility] ACCOUNT BILL Hematocrit 36.5 36.0 - 50.0 % [facility] ACCOUNT BILL MCV 85 80 - 98 fL [facility] ACCOUNT BILL MCH 29.5 27.0 - 34.0 pg [facility] ACCOUNT BILL MCHC 34.8 32.0 - 36.0 g/dL [facility] ACCOUNT BILL RDW 14.9 11.7 - 15.0 % [facility] ACCOUNT BILL Platelet Count 196 140 - 415 x10E3/uL [facility] ACCOUNT BILL Granulocytes % 46 40 - 74 % [facility] ACCOUNT BILL Lymphocytes % 41 14 - 46 % [facility] ACCOUNT BILL Monocytes % 8 4 - 13 % [facility] ACCOUNT BILL Eosinophils % 4 0 - 7 % [facility] ACCOUNT BILL Basophils % 1 0 - 3 % [facility] ACCOUNT BILL Immature Cells NOT AVAIL. [facility] ACCOUNT BILL Granulocytes Absolute 4.5 1.8 - 7.8 x10E3/uL [facility] ACCOUNT BILL [...] 0.1 x10E3/uL [facility] ACCOUNT BILL nRBC NOT AVAIL. [facility] ACCOUNT BILL Comment Hematology NOT AVAIL. [facility] ACCOUNT BILL 11/08/2009 5:18 PM CDT 11/08/2009 8:47 PM CDT Narrative [facility] ACCOUNT BILL - 11/10/2009 3:08 AM CDT Additional Result Information 1MMATURE CELLS % BLOOD ([facility]): RESULT NOT AVAILABLE NRBC ([facility]): RESULT NOT AVAILABLE HEMATOLOGY COMMENTS: ??BLOOD,URINE ([facility]): RESULT NOT AVAILABLE Resulting Agency Comment [facility] [address] ??[facility] [phone] Isidro Heredia MD LAB - HEMATOLOGY OR DERABLES [facility] ACCOUNT BILL documented in this encounter Visit Diagnoses Not on filedocumented in this encounter Care Teams Research Statistician Relationship Specialty Start Date End Date Nolberto Nicole MD PCP - General 07/21/08 12/30/13 documented as of this encounter
--- OUTSIDE RECORDS SUMMARY | 2024-05-03 04:16 | XMS_ITS | Encounter Summary ---
Author Organization [facility] Address [address] [facility] [place] [address] Care Team Providers Care Blackener Name Role Phone Nolberto Nicole MD Primary Care Provider [phone] Reason for Visit * Reason Comments Follow-up ra General pt has cloudy vision stop plaquenil. Fatigue Pain Muscle Encounter Details Date Type Department Care Team (Late st Contact Info) Description 08/02/2009 5:15 PM CDT Office Visit [facility] - Rheumatology [address] [place] [address] [phone] Isidro Heredia MD [address] [place] [phone] Rheumatoid Arthritis (HCC) (Primary Dx); Osteopenia [...] Reading Time Taken Comments Blood Pressure 110/70 08/02/2009 5:23 PM CDT Pulse 88 08/02/2009 5:23 PM CDT Temperature - - Respiratory Rate - - Oxygen Saturation - - Inhaled Oxygen Concentration - - Weight 111.6 kg (246 lb) 08/02/2009 5:23 PM CDT Height - - Body Mass Index 35.3 02/08/2009 5:43 PM CDT documented in this encounter Progress Notes * Isidro Heredia MD - 08/02/2009 5:45 PM CDT Subjective: Chalino Deng 48 y.o. male Chief Complaint Patient presents with ??? Follow-up ra ??? General pt has cloudy vision stop plaquenil. ??? Fatigue ??? Pain Muscle Current outpatient prescriptions prior to encounter Medication Sig Dispense Refill ??? triamcinolone acetonide (KENALOG-40) injection 2 mL by Intra-articular route once. 1 0 ??? oxycodone-acetaminophen (PERCOCET) 5-325 MG tablet Take [...] History Drug Use Not on file he had some plaquenil toxicity with vf abnormalities so we will dc the plaquenil Pain Level:8/10 Am stiffness 1 hr Global 6/10 Fatigue y Medication Side Effects n Review [...] clubbing, edema OTHER: Objective: BP 110/70 Pulse 88 Wt 111.585 kg (246 lb) Tender Joint Count 28 Swollen Joint Count Muscles: Weak or Tender [...] C-reactive protein ??? Sed rate westergren auto Follow up in office in 4 weeks Dc plaquenil * Rea Hagan MA - 08/02/2009 5:24 PM CDT Chief Complaint Patient presents with ??? Follow-up ra ??? General pt has cloudy vision stop plaquenil. ??? Fatigue ??? Pain Muscle BP 110/70 Pulse 88 Wt 111.585 kg (246 lb) documented in this encounter Plan of Treatment Upcoming Encounters Date Type Department Care Team (Late st Contact Info) Description 06/03/2024 1:00 PM BUDGET EXAMINER Appointment [facility] - Rheumatology [address] [place] [address] [phone] 06/03/2024 2:00 PM BUDGET EXAMINER Office Visit [facility] - Rheumatology [address] [place] [address] [phone] Gloria Smith MD [address] [place] [phone] Scheduled Orders Name Type Priority Associated Diagnoses Orde r Schedule CBC W AUTO DIFFERENTIAL Lab Routine Rheumatoid Arthritis ([facility]) Ordered: 08/02/2009 COMPREHENSIVE METABOLIC PANEL Lab Routine Rheumatoid Arthritis ([facility]) Ordered: 08/02/2009 C-REACTIVE PROTEIN Lab Routine Rheumatoid Arthritis ([facility]) Ordered: 08/02/2009 documented as of this encounter Procedures Procedure Name Priority Date/Time Associated Diagnosis Comments ERYTHROCYTE SEDIMENTATION RATE Routine 08/02/2009 5:24 PM CDT Rheumatoid Arthritis ([facility]) documented in this encounter Results * SED RATE WESTERGREN AUTO (08/02/2009 5:24 PM CDT) Erythrocyte Sedimentation Rate Westergren 11 0 - 15 mm/hr [facility] ACCOUNT BILL BLOOD SPECIMEN / Unknown 08/02/2009 5:24 PM CDT 08/02/2009 9:21 PM CDT Narrative Resulting Agency Comment [facility] [address] ??[facility] [phone] Isidro Heredia MD LAB - HEMATOLOGY OR DERABLES [facility] ACCOUNT BILL documented in this encounter Visit Diagnoses Diagnosis Rheumatoid arthritis(714.0) (HCC)- Primary Rheumatoid arthritis Osteopenia Disorder of bone and cartilage, unspecified documented in this encounter Care Teams Blackener Relationship Specialty Start Date End Date Nolberto Nicole MD PCP - General 07/21/08 12/30/13 documented as of this encounter
--- OUTSIDE RECORDS SUMMARY | 2024-05-03 04:16 | XMS_ITS | Encounter Summary ---
Author Organization [facility] Address [address] [place] [address] Care Team Providers Care Steam Conditioner Filling Name Role Phone Nolberto Nicole MD Primary Care Provider [phone] Encounter Details Date Type Department Care Team (Late Contact Info) Description 08/02/2009 Orders Only [facility] - Rheumatology [address] [place] [address] [phone] Isidro Heredia MD [address] [place] [address] [phone] Social History Tobacco Use Types Packs/Day Years Used Date Smoking Tobacco: Never Alcohol Use Standard Drinks/Week Comments No 0 (1 standard drink = 0.6 oz pur e alcohol) Sex and Gender Information Value Date Recorded Sex Assigned at Not on file Gender Identity Not on file Sexual Orientation Not on file documented as of this encounter Progress Notes * Rea Hagan MA - 08/11/2009 2:26 PM CDTQuick Note: Sent lab letter to pt and copy to PCP * Isidro Heredia MD - 08/07/2009 7:52 PM CDTQuick Note: Mtx ok documented in this encounter Plan of Treatment Upcoming Encounters Date Type Department Care Team (Late st Contact Info) Description 06/03/2024 1:00 PM FILTER TIP INSPECTOR Appointment [facility] - Rheumatology [address] [place] [address] 06/03/2024 2:00 PM FILTER TIP INSPECTOR Office Visit [facility] - Rheumatology [address] [place] [address] [phone] Gloria Smith MD [address] [place] [phone] documented as of this encounter Procedures Procedure Name Priority Date/Time Associated Diagnosis Comments C-REACTIVE PROTEIN 08/02/2009 5: 24 PM CDT CBC W AUTO DIFFERENTIAL 08/02/2009 5:24 PM CDT COMPREHENSIVE METABOLIC PANEL 08/02/2009 5:24 PM CDT documented in this encounter Results * C-REACTIVE PROTEIN (08/02/2009 5:24 PM CDT) C-Reactive Protein 2.1 0.0 - 4.9 mg/L [facility] ACCOUNT BILL 08/02/2009 5:24 PM CDT 08/02/2009 9:21 PM CDT Narrative Resulting Agency Comment [facility] [address] ??[facility] [phone] Isidro Heredia MD LAB - CHEMISTRY ORD ERABLES [facility] ACCOUNT BILL * (ABNORMAL) COMPREHENSIVE METABOLIC PANEL (08/02/2009 5:24 PM CDT) Glucose 109(H) 65 - 99 mg/dL [facility] ACCOUNT BILL BUN 22 5 - 26 mg/dL [facility] ACCOUNT BILL Creatinine 0.96 0.76 [...] - 5.2 mmol/L [facility] ACCOUNT BILL Chloride 108 97 - 108 mmol/L [facility] ACCOUNT BILL CO2 21 20 - 32 mmol/L [facility] ACCOUNT BILL Calcium 8.9 8.7 - 10.2 mg/dL [facility] ACCOUNT BILL Protein Total 6.8 6.0 - 8.5 g/dL [facility] ACCOUNT BILL Albumin 4.1 3.5 - 5.5 g/dL [facility] ACCOUNT BILL Globulin Total 2.7 1.5 - 4.5 g/dL [facility] ACCOUNT BILL Albumin/Globulin Ratio 1.5 1.1 - 2.5 [facility] ACCOUNT BILL Bilirubin Total 0.2 0.1 - 1.2 mg/dL [facility] ACCOUNT BILL Alkaline Phosphatase 89 25 - 150 IU/L [facility] ACCOUNT BILL AST 25 0 - 40 IU/L [facility] ACCOUNT BILL ALT 33 0 - 55 IU/L [facility] ACCOUNT BILL 08/02/2009 5:24 PM CDT 08/02/2009 9:21 PM CDT Narrative Resulting Agency Comment [facility] [address] ??[facility] [phone] Isidro Heredia MD LAB - CHEMISTRY ORD ERABLES [facility] ACCOUNT BILL * (ABNORMAL) CBC W AUTO DIFFERENTIAL (08/02/2009 5:24 PM CDT) WBC 10.3 4.0 - 10.5 x10E3/uL [facility] ACCOUNT BILL RBC 4.12 4.10 - 5.60 x10E6/uL [facility] ACCOUNT BILL Hemoglobin 12.7 12.5 - 17.0 g/dL [facility] ACCOUNT BILL Hematocrit 37.0 36.0 - 50.0 % [facility] ACCOUNT BILL MCV 90 80 - 98 fL [facility] ACCOUNT BILL MCH 30.8 27.0 - 34.0 pg [facility] ACCOUNT BILL MCHC 34.3 32.0 - 36.0 g/dL [facility] ACCOUNT BILL RDW 15.3(H) 11.7 - 15.0 % [facility] ACCOUNT BILL Platelet Count 161 140 - 415 x10E3/uL [facility] ACCOUNT BILL Granulocytes % 50 40 - 74 % [facility] ACCOUNT BILL Lymphocytes % 40 14 - 46 % [facility]OUNT BILL Monocytes % 6 4 - 13 % [facility] ACCOUNT BILL Eosinophils % 3 0 - 7 % [facility] ACCOUNT BILL Basophils % 1 0 - 3 % [facility] ACCOUNT BILL Immature Cells NOT AVAIL. [facility] ACCOUNT BILL Granulocytes Absolute 5.2 1.8 - 7.8 x10E3/uL [facility] ACCOUNT BILL Lymphocytes Absolute 4.1 0.7 - 4.5 x10E3/uL [facility] ACCOUNT BILL [...] Comment Hematology NOT AVAIL. [facility] ACCOUNT BILL 08/02/2009 5:24 PM CDT 08/02/2009 9:21 PM CDT Narrative [facility] ACCOUNT BILL - 08/03/2009 8:25 AM CDT Additional Result Information IMMATURE CELLS ([facility]): RESULT NOT AVAILABLE IMMATURE GRANULOCYTES ([facility]): RESULT NOT AVAILABLE IMMATURE GRANS (ABS) ([facility]): RESULT NOT AVAILABLE NRBC ([facility]): RESULT NOT AVAILABLE HEMATOLOGY COMMENTS: ??BLOOD,URINE ([facility]): RESULT NOT AVAILABLE Resulting Agency Comment [facility] [address] ??[facility] [phone] Isidro Heredia MD LAB - HEMATOLOGY OR DERABLES [facility] ACCOUNT BILL documented in this encounter Visit Diagnoses Not on filedocumented in this encounter Care Teams Steam Conditioner Filling Relationship Specialty Start Date End Date Nolberto Nicole MD PCP - General 07/21/08 12/30/13 documented as of this encounter
--- OUTSIDE RECORDS SUMMARY | 2024-05-03 04:16 | XMS_ITS | Encounter Summary ---
Author Organization [facility] Address [address] [facility] [place] [address] Care Team Providers Care Pharmacist'S Aide Name Role Phone Nolberto Nicole MD Primary Care Provider [phone] Reason for Visit * Reason Comments Follow-up ra General end of last week shafer, breathing problem due to mole in air condition at job. chest still feels heavy Swelling Joint GENERALIZED BODY ACHES Pain Extremity obdulia ankle bruised Pain Leg obdulia Encounter Details Date Type Department Care Team (Late st Contact Info) Description 11/08/2009 5:00 PM CDT Office Visit [facility] - Rheumatology [address] [place] [address] Isidro Heredia MD [address] [place], [place] [phone] Rheumatoid Arthritis (HCC) (Primary Dx) Social History [...] Sign Reading Time Taken Comments Blood Pressure 130/88 11/08/2009 5:18 PM CDT Pulse 84 11/08/2009 5:18 PM CDT Temperature - - Respiratory Rate - - Oxygen Saturation - - Inhaled Oxygen Concentration - - Weight 114.8 kg (253 lb) 11/08/2009 5:18 PM CDT Height - - Body Mass Index 36.3 02/08/2009 5:43 PM CDT documented in this encounter Progress Notes * Corry Santizo RN - 11/15/2009 10:47 AM CDTQuick Note: Letter mailed to pt. * Isidro Heredia MD - 11/14/2009 9:35 AM CDTQuick Note: Test for ra sl pos Mtx ok * Isidro Heredia MD - 11/08/2009 5:46 PM CDT Subjective: Chalino Deng 49 y.o. male Chief Complaint Patient presents with ??? Follow-up ra ??? General end of last week shafer, breathing problem due to mole in air condition at job. chest still feels heavy ??? Swelling Joint ??? GENERALIZED BODY ACHES ??? Pain Extremity obdulia ankle bruised ??? Pain Leg obdulia Current outpatient prescriptions prior to encounter Medication Sig Dispense Refill ??? adalimumab (HUMIRA [...] No History Drug Use Not on file flare up last week, people sick in his building, his feet were swollen Pain Level: 11/06 Am stiffness 1 hr2 Global 11/06 Fatigue y Medication Side Effects Review of Systems: GENERAL: No fever, chills, [...] No cyanosis, clubbing, edema OTHER: Objective: BP 130/88 Pulse 84 Wt 114.76 kg (253 lb) Tender Joint Count 28/28 Swollen Joint Count 17/28 Muscles: Weak or Tender 0 Rheumatoid Nodules: [...] Plan: Plan Orders Placed This Encounter ??? Cell count synovial w crystals (po ref lab) ??? Comprehensive metabolic panel ??? C-reactive protein ??? Cyclic citrul peptide antibody igg/iga (ccp) ??? Sed rate westergren auto ??? Oxycodone-acetaminophen 5-325 mg po tabs Sig: Take 1 Tab by mouth every 6 hours as needed for Pain. Dispense: 120 Refill: 0 Inc pred to 10 mg bid x 5-7 d then taper back to 10 Follow up in office in 4 weeks * Rea Hagan MA - 11/08/2009 5:19 PM CDT Chief Complaint Patient presents with ??? Follow-up ra ??? General end of last week shafer, breathing problem due to mole in air condition at job. chest still feels heavy ??? Swelling Joint ??? GENERALIZED BODY ACHES ??? Pain Extremity obdulia ankle bruised ??? Pain Leg obdulia BP 130/88 Pulse 84 Wt 114.76 kg (253 lb) documented in this encounter Plan of Treatment Upcoming Encounters Date Type Department Care Team (Late st Contact Info) Description 06/03/2024 1:00 PM HUMAN RESOURCES TRAINEE Appointment [facility] - Rheumatology [address] [place] [address] [phone] 06/03/2024 2:00 PM HUMAN RESOURCES TRAINEE Office Visit [facility] - Rheumatology [address] [place] [address] [phone] Gloria Smith MD [address] [place] [phone] documented as of this encounter Procedures Procedure Name Priority Date/Time Associated Diagnosis Comments CYCLIC CITRUL PEPTIDE ANTIBODY IGG/IGA (CCP) Routine 11/08/2009 5:18 PM CDT Rheumatoid Arthritis (HCC) C-REACTIVE PROTEIN Routine 11/08/2009 5: 18 PM CDT Rheumatoid Arthritis (HCC) ERYTHROCYTE SEDIMENTATION RATE Routine 11/08/2009 5:18 PM CDT Rheumatoid Arthritis (HCC) COMPREHENSIVE METABOLIC PANEL Routine 11/08/2009 5:18 PM CDT Rheumatoid Arthritis (HCC) documented in this encounter Results * SED RATE WESTERGREN AUTO (11/08/2009 5:18 PM CDT) Erythrocyte Sedimentation Rate Westergren 12 0 - 15 mm/hr [facility] ACCOUNT BILL BLOOD SPECIMEN / Unknown 11/08/2009 5:18 PM CDT 11/08/2009 8:47 PM CDT Narrative Resulting Agency Comment [facility] [place] [address] [facility] ??[facility] [phone] Isidro Heredia MD LAB - HEMATOLOGY OR DERABLES [facility] ACCOUNT BILL * (ABNORMAL) CYCLIC CITRUL PEPTIDE ANTIBODY IGG/IGA (CCP) (11/08/2009 5:18 PM CDT) CCP Antibodies IgG/IgA 20(H) 0 - 19 units [facility] ACCOUNT BILL Comment: ? Negative ? <20 ? Weak positive ?20 - 39 ? Moderate positive ??40 - 59 ? Strong positive ?>59 BLOOD SPECIMEN / Unknown 11/08/2009 5:18 PM CDT 11/08/2009 8:47 PM CDT Narrative Resulting Agency Comment [facility] [address] ??[facility] [phone] Isidro Heredia MD LAB - SEROLOGY ORDAvelino ARAUJO [facility] ACCOUNT BILL * C-REACTIVE PROTEIN (11/08/2009 5:18 PM CDT) C-Reactive Protein 3.2 0.0 - 4.9 mg/L [facility] ACCOUNT BILL BLOOD SPECIMEN / Unknown 11/08/2009 5:18 PM CDT 11/08/2009 8:47 PM CDT Narrative Resulting Agency Comment [facility] [address] ??[facility] [phone] Isidro Heredia MD LAB - CHEMISTRY ORD DONNIE [facility] ACCOUNT BILL * COMPREHENSIVE METABOLIC PANEL (11/08/2009 5:18 PM CDT) Glucose 94 65 - 99 mg/dL [facility] ACCOUNT BILL BUN 22 5 - 26 mg/dL [facility] ACCOUNT BILL Creatinine 0.99 0.76 [...] may be found at [email or web address].org. BUN/Creatinine Ratio 22 8 - 27 [facility] ACCOUNT BILL Sodium [...] 1.2 mg/dL [facility] ACCOUNT BILL Alkaline Phosphatase 108 25 - 150 IU/L [facility] ACCOUNT BILL AST 38 0 - 40 IU/L [facility] ACCOUNT BILL ALT 46 0 - 55 IU/L [facility] ACCOUNT BILL BLOOD SPECIMEN / Unknown 11/08/2009 5:18 PM CDT 11/08/2009 8:47 PM CDT Narrative Resulting Agency Comment [facility] [address] ??[facility] [phone] Isidro Heredia MD LAB - CHEMISTRY ORD ERABLES [facility] ACCOUNT BILL documented in this encounter Visit Diagnoses Diagnosis Rheumatoid arthritis(714.0) ([facility])- Primary Rheumatoid arthritis documented in this encounter Care Teams Pharmacist'S Aide Relationship Specialty Start Date End Date Nolberto Nicole MD PCP - General 07/21/08 12/30/13 documented as of this encounter
--- OUTSIDE RECORDS SUMMARY | 2024-05-03 04:16 | XMS_ITS | Encounter Summary ---
Author Organization [facility] Address [address] [facility] [place] [address] Care Team Providers Care Airplane Rental Clerk Name Role Phone Nolberto Nicole MD Primary Care Provider [phone] Reason for Visit * Reason Comments Swelling Hand with white spots on palm of obdulia hands Pain legs,knees, rt foot especially the big toe Pain Back low General request handicap car d Encounter Details Date Type Department Care Team (Late st Contact Info) Description 12/13/2009 5:30 PM CDT Office Visit [facility] - Rheumatology [address] [place] [address] Isidro Heredia MD [address] [place] [phone] Rheumatoid Arthritis (HCC) (Primary Dx) Social History [...] Sign Reading Time Taken Comments Blood Pressure 140/90 12/13/2009 6:29 PM CDT Pulse 80 12/13/2009 6:29 PM CDT Temperature - - Respiratory Rate - - Oxygen Saturation - - Inhaled Oxygen Concentration - - Weight 114.8 kg (253 lb) 12/13/2009 6:29 PM CDT Height - - Body Mass Index 36.3 02/08/2009 5:43 PM CDT documented in this encounter Progress Notes * Rea Hagan MA - 12/22/2009 10:58 AM CDTQuick Note: Sent lab letter to pt * Isidro Heredia MD - 12/22/2009 6:13 AM CDTQuick Note: mtx ok Test pos for ra * Isidro Heredia MD - 12/13/2009 7:11 PM CDT Subjective: Chalino Deng 49 y.o. male Chief Complaint Patient presents with ??? Swelling Hand with white spots on palm of obdulia hands ??? Pain legs,knees, rt foot especially the big toe ??? Pain Back low ??? General request handicap card Current outpatient prescriptions ordered prior to encounter [...] History Drug Use Not on file doing fair On vacation last week in [place] Pain Level: 7/10 Am stiffness 2 hrs Global 8/10 Fatigue y Medication Side Effects n20 Review of Systems: GENERAL: No fever, chills, [...] No cyanosis, clubbing, edema OTHER: Objective: BP 140/90 Pulse 80 Wt 253 lb (114.76 kg) Tender Joint Count 20/28 Swollen Joint Count 15/28 Muscles: Weak or Tender 0 Rheumatoid Nodules: [...] (ccp) ??? Rheumatoid factor blood quantitative ??? Sed rate westergren auto ??? Oxycodone-acetaminophen (percocet) 5-325 mg tablet Sig: Take 1 Tab by mouth every 6 hours as needed for Pain. Dispense: 120 Tab Refill: 0 ??? Prednisone (deltasone) 10 mg tablet Sig: Take 1 Tab by mouth daily. In the am and 1 tab in the pm Dispense: 60 Tab Refill: 6 On humira q wk Follow up in office in 4 weeks * Rea Hagan MA - 12/13/2009 6:44 PM CDT Chief Complaint Patient presents with ??? Swelling Hand with white spots on palm of obdulia hands ??? Pain legs,knees, rt foot especially the big toe ??? Pain Back low ??? General request handicap card BP 140/90 Pulse 80 Wt 253 lb (114.76 kg) documented in this encounter Plan of Treatment Upcoming Encounters Date Type Department Care Team (Late st Contact Info) Description 06/03/2024 1:00 PM OIL FIELD CASER Appointment [facility] - Rheumatology [address] [place] [address] 06/03/2024 2:00 PM OIL FIELD CASER Office Visit [facility] - Rheumatology [address] [place] [address] [phone] Gloria Smith MD [address] [place] [phone] documented as of this encounter Procedures Procedure Name Priority Date/Time Associated Diagnosis Comments CYCLIC CITRUL PEPTIDE ANTIBODY IGG/IGA (CCP) Routine 12/13/2009 7:02 PM CDT Rheumatoid Arthritis (HCC) RHEUMATOID FACTOR BLOOD QUANTITATIVE Routine 12/13/2009 7:02 PM CDT Rheumatoid Arthritis (HCC) C-REACTIVE PROTEIN Routine 12/13/2009 7: 02 PM CDT Rheumatoid Arthritis (HCC) ERYTHROCYTE SEDIMENTATION RATE Routine 12/13/2009 7:02 PM CDT Rheumatoid Arthritis (HCC) CBC W AUTO DIFFERENTIAL Routine 12/13/2009 7:02 PM CDT Rheumatoid Arthritis (HCC) COMPREHENSIVE METABOLIC PANEL Routine 12/13/2009 7:02 PM CDT Rheumatoid Arthritis (HCC) documented in this encounter Results * SED RATE WESTERGREN AUTO (12/13/2009 7:02 PM CDT) Erythrocyte Sedimentation Rate Westergren 14 0 - 15 mm/hr [facility] ACCOUNT BILL BLOOD SPECIMEN / Unknown 12/13/2009 7:02 PM CDT 12/13/2009 10:40 PM CDT Narrative Resulting Agency Comment [facility] [place] [address] ??[facility] [phone] Isidro Heredia MD LAB - HEMATOLOGY OR DERABLES Performing Organization Address [facility] Co de Phone Number [facility] ACCOUNT BILL * RHEUMATOID FACTOR BLOOD QUANTITATIVE (12/13/2009 7:02 PM CDT) Rheumatoid Factor 8.3 0.0 - 13.9 IU/mL [facility] ACCOUNT BILL BLOOD SPECIMEN / Unknown 12/13/2009 7:02 PM CDT 12/13/2009 10:40 PM CDT Narrative Resulting Agency Comment [facility] [address] ??[facility] [phone] Isidro Heredia MD LAB - CHEMISTRY ORD ERABLES Performing Organization Address City/[facility]/ZIP Co de Phone Number [facility] ACCOUNT BILL * (ABNORMAL) CYCLIC CITRUL PEPTIDE ANTIBODY IGG/IGA (CCP) (12/13/2009 7:02 PM CDT) CCP Antibodies IgG/IgA 22(H) 0 - 19 units [facility] ACCOUNT BILL Comment: ? Negative ? <20 ? Weak positive ?20 - 39 ? Moderate positive ??40 - 59 ? Strong positive ?>59 BLOOD SPECIMEN / Unknown 12/13/2009 7:02 PM CDT 12/13/2009 10:40 PM CDT Narrative Resulting Agency Comment [facility] [address] ??[facility] [phone] Isidro Heredia MD LAB - SEROLOGY MARII ARAUJO Performing Organization Address [facility] Co de Phone Number [facility] ACCOUNT BILL * C-REACTIVE PROTEIN (12/13/2009 7:02 PM CDT) C-Reactive Protein 2.3 0.0 - 4.9 mg/L [facility] ACCOUNT BILL BLOOD SPECIMEN / Unknown 12/13/2009 7:02 PM CDT 12/13/2009 10:40 PM CDT Narrative Resulting Agency Comment [facility] [address] ??[facility] [phone] Isidro Heredia MD LAB - CHEMISTRY CALEB FIELDS Performing Organization Address City/[facility]/ZIP Co de Phone Number [facility] ACCOUNT BILL * COMPREHENSIVE METABOLIC PANEL (12/13/2009 7:02 PM CDT) Glucose 86 65 - 99 mg/dL [facility] ACCOUNT BILL BUN 20 5 - 26 mg/dL [facility] ACCOUNT BILL Creatinine 0.91 0.76 [...] - 5.2 mmol/L [facility] ACCOUNT BILL Chloride 98 97 - 108 mmol/L [facility] ACCOUNT BILL [...] [facility] ACCOUNT BILL BLOOD SPECIMEN / Unknown 12/13/2009 7:02 PM CDT 12/13/2009 10:40 PM CDT Narrative Resulting Agency Comment [facility] [address] ??[facility] [phone] Isidro Heredia MD LAB - CHEMISTRY ORD ERABLES [facility] ACCOUNT BILL * (ABNORMAL) CBC W AUTO DIFFERENTIAL (12/13/2009 7:02 PM CDT) WBC 12.9(H) 4.0 - 10.5 x10E3/uL [facility] ACCOUNT BILL RBC 4.41 4.10 - 5.60 x10E6/uL [facility] ACCOUNT BILL Hemoglobin 12.9 12.5 - 17.0 g/dL [facility] ACCOUNT BILL Hematocrit 38.0 36.0 - 50.0 % [facility] ACCOUNT BILL MCV 86 80 - 98 fL [facility] ACCOUNT BILL MCH 29.3 27.0 - 34.0 pg [facility] ACCOUNT BILL MCHC 33.9 32.0 - 36.0 g/dL [facility] ACCOUNT BILL RDW 14.4 11.7 - 15.0 % [facility] ACCOUNT BILL Platelet Count 206 140 - 415 x10E3/uL [facility] ACCOUNT BILL [...] canceled by pablo ceballos ancillary Granulocytes Absolute 8.7(H) 1.8 - 7.8 x10E3/uL [facility] ACCOUNT BILL [...] CANCELED [facility] ACCOUNT BILL Comment:Result canceled by pablo ceballos ancillary Comment Hematology CANCELED [facility] ACCOUNT BILL Comment:Result canceled by pablo ceballos ancillary BLOOD SPECIMEN / Unknown 12/13/2009 7:02 PM CDT 12/13/2009 10:40 PM CDT Narrative Resulting Agency Comment [facility] [address] ??[facility] [phone] Isidro Heredia MD LAB - HEMATOLOGY OR DERABLES [facility] ACCOUNT BILL documented in this encounter Visit Diagnoses Diagnosis Rheumatoid arthritis(714.0) (HCC)- Primary Rheumatoid arthritis documented in this encounter Care Teams Airplane Rental Clerk Relationship Specialty Start Date End Date Nolberto Nicole MD PCP - General 07/21/08 12/30/13 documented as of this encounter
--- OUTSIDE RECORDS SUMMARY | 2024-05-03 04:16 | XMS_ITS | Encounter Summary ---
Author Organization [facility] Address [address] [facility] [place] [address] Care Team Providers Care Feather Drying Machine Operator Name Role Phone Nolberto Nicole MD Primary Care Provider [phone] Encounter Details Date Type Department Care Team (Late Contact Info) Description 01/11/2009 Orders Only [facility] - Rheumatology [address] [place] [address] [phone] Isidro Heredia MD [address] [place] [address] [phone] Social History Tobacco Use Types Packs/Day Years [...] Notes * Rea Hagan MA - 01/18/2009 11:38 AM CDTQuick Note: Sent letter * Isidro Heredia MD - 01/17/2009 3:23 PM CDTQuick Note: Mtx ok documented in this encounter Plan of Treatment Upcoming Encounters Date Type Department Care Team (Late st Contact Info) Description 06/03/2024 1:00 PM DISTRIBUTION CENTER ADMINISTRATOR Appointment [facility] - Rheumatology [address] [place] [address] [phone] 06/03/2024 2:00 PM DISTRIBUTION CENTER ADMINISTRATOR Office Visit [facility] - Rheumatology [address] [place] [phone] Gloria Smith MD [address] [place] [phone] documented as of this encounter Procedures Procedure Name Priority Date/Time Associated Diagnosis Comments COMPREHENSIVE METABOLIC PANEL 01/11/2009 5:23 PM CDT documented in this encounter Results * COMPREHENSIVE METABOLIC PANEL (01/11/2009 5:23 PM CDT) Glucose 92 65 - 99 mg/dL [facility] ACCOUNT BILL BUN 19 5 - 26 mg/dL [facility] ACCOUNT BILL Creatinine 1.04 0.76 - 1.27 mg/dL [facility] ACCOUNT BILL [...] may be found at [email or web address].org. BUN/Creatinine Ratio 18 8 - 27 [facility] ACCOUNT BILL Sodium 141 135 - 145 mmol/L [facility] ACCOUNT BILL Potassium 4.4 3.5 - 5.2 mmol/L [facility] ACCOUNT BILL Chloride 103 97 - 108 mmol/L [facility] ACCOUNT BILL CO2 24 20 - 32 mmol/L [facility] ACCOUNT BILL Calcium 10.2 8.5 - 10.6 mg/dL [facility] ACCOUNT BILL Protein Total 7.8 6.0 - 8.5 g/dL [facility] ACCOUNT BILL Albumin 4.6 3.5 - 5.5 g/dL [facility] ACCOUNT BILL Globulin Total 3.2 1.5 - 4.5 g/dL [facility] ACCOUNT BILL Albumin/Globulin Ratio 1.4 1.1 - 2.5 [facility] ACCOUNT BILL Bilirubin Total 0.6 0.1 - 1.2 mg/dL [facility] ACCOUNT BILL Alkaline Phosphatase 89 25 - 150 IU/L [facility] ACCOUNT BILL AST 28 0 - 40 IU/L [facility] ACCOUNT BILL ALT 41 0 - 55 IU/L [facility] ACCOUNT BILL 01/11/2009 5:23 PM CDT 01/11/2009 9:32 PM CDT Narrative Resulting Agency Comment [facility] [place] [phone] [facility] ??[facility] [phone] Isidro Heredia MD LAB - CHEMISTRY ORD ERABLES [facility] ACCOUNT BILL documented in this encounter Visit Diagnoses Not on filedocumented in this encounter Care Teams Feather Drying Machine Operator Relationship Specialty Start Date End Date Nolberto Nicole MD PCP - General 07/21/08 12/30/13 documented as of this encounter
--- OUTSIDE RECORDS SUMMARY | 2024-05-03 04:17 | XMS_ITS | Encounter Summary ---
Author Organization [facility] Address [address] [facility] [address] [facility] [place] [address] Care Team Providers Care Coordinator Cardiopulmonary Services Name Role Phone Unavailable Primary Care Provider Unavailabl e Encounter Details Date Type Department Care Team (Late st Contact Info) Description 06/22/[address] [facility] - Family Medicine [address] [place] [phone] Isidro Heredia MD [address] [place] [phone] Social History Tobacco Use Types Packs/Day Years Used Date Smoking Tobacco: Never Assessed Sex and Gender Information Value Date Recorded Sex Assigned at Not on file Gender Identity Not on file Sexual Orientation Not on file documented as of this encounter Plan of Treatment Upcoming Encounters Date Type Department Care Team (Late st Contact Info) Description 06/03/2024 1:00 PM SPECIAL EDUCATION MATH TEACHER Appointment [facility] - Rheumatology [address] [place] [address] 06/03/2024 2:00 PM SPECIAL EDUCATION MATH TEACHER Office Visit [facility] - Rheumatology [address] [place] [phone] Gloria Smith MD [address] [place] [phone] documented as of this encounter Procedures Procedure Name Priority Date/Time Associated Diagnosis Comments C-REACTIVE PROTEIN 06/22/2008 5: 42 PM SPECIAL EDUCATION MATH TEACHER ERYTHROCYTE SEDIMENTATION RATE 06/22/2008 5:42 PM SPECIAL EDUCATION MATH TEACHER CBC W AUTO DIFFERENTIAL 06/22/2008 5:42 PM SPECIAL EDUCATION MATH TEACHER COMPREHENSIVE METABOLIC PANEL 06/22/2008 5:42 PM SPECIAL EDUCATION MATH TEACHER documented in this encounter Results * (ABNORMAL) C-REACTIVE PROTEIN (06/22/2008 5:42 PM SPECIAL EDUCATION MATH TEACHER) C-Reactive Protein 5.5(H) 0.0 - 4.9 mg/L [facility] ACCOUNT BILL 06/22/2008 5:42 PM SPECIAL EDUCATION MATH TEACHER 06/22/2008 9:42 PM SPECIAL EDUCATION MATH TEACHER Narrative Resulting Agency Comment [facility] [place] [id number] ??[facility] [phone] Isidro Heredia MD LAB - CHEMISTRY ORD ERABLES Performing Organization Address City/[facility] Co de Phone Number [facility] ACCOUNT BILL * SED RATE WESTERGREN AUTO (06/22/2008 5:42 PM SPECIAL EDUCATION MATH TEACHER) Erythrocyte Sedimentation Rate Westergren 10 0 - 15 mm/hr [facility] ACCOUNT BILL 06/22/2008 5:42 PM SPECIAL EDUCATION MATH TEACHER 06/22/2008 9:42 PM SPECIAL EDUCATION MATH TEACHER Narrative Resulting Agency Comment [facility] [place] [address] ??[facility] [phone] Isidro Heredia MD LAB - HEMATOLOGY OR DERABLES Performing Organization Address City/[facility] Co de Phone Number [facility] ACCOUNT BILL * COMPREHENSIVE METABOLIC PANEL (06/22/2008 5:42 PM SPECIAL EDUCATION MATH TEACHER) Glucose 86 65 - 99 mg/dL [facility] ACCOUNT BILL BUN 18 5 - 26 mg/dL [facility] ACCOUNT BILL Creatinine 0.90 0.76 [...] 0 - 55 IU/L [facility] ACCOUNT BILL 06/22/2008 5:42 PM SPECIAL EDUCATION MATH TEACHER 06/22/2008 9:42 PM SPECIAL EDUCATION MATH TEACHER Narrative Resulting Agency Comment [facility] [address] ??[facility] [phone] Isidro Heredia MD LAB - CHEMISTRY ORD ERABLES [facility] ACCOUNT BILL * (ABNORMAL) CBC W AUTO DIFFERENTIAL (06/22/2008 5:42 PM SPECIAL EDUCATION MATH TEACHER) WBC 11.3(H) 4.0 - 10.5 x10E3/uL [facility] ACCOUNT BILL RBC 4.49 4.10 - 5.60 x10E6/uL [facility] ACCOUNT BILL Hemoglobin 13.5 12.5 - 17.0 g/dL [facility] ACCOUNT BILL Hematocrit 40.2 36.0 - 50.0 % [facility] ACCOUNT BILL MCV 89 80 - 98 fL [facility] ACCOUNT BILL MCH 30.0 27.0 - 34.0 pg [facility] ACCOUNT BILL MCHC 33.5 32.0 - 36.0 g/dL [facility] ACCOUNT BILL RDW 15.2(H) 11.7 - 15.0 % [facility] ACCOUNT BILL Platelet Count 194 140 - 415 x10E3/uL [facility] ACCOUNT BILL Granulocytes % 52 40 - 74 % [facility] ACCOUNT BILL Lymphocytes % 38 14 - 46 % [facility] ACCOUNT BILL Monocytes % 6 4 - 13 % [facility] ACCOUNT BILL Eosinophils % 3 0 - 7 % [facility] ACCOUNT BILL Basophils % 1 0 - 3 % [facility] ACCOUNT BILL Granulocytes Absolute 5.9 1.8 - 7.8 x10E3/uL [facility] ACCOUNT BILL Lymphocytes Absolute 4.3 0.7 - 4.5 x10E3/uL [facility] ACCOUNT BILL Monocytes Absolute 0.7 0.1 - 1.0 x10E3/uL [facility] ACCOUNT BILL Eosinophils Absolute 0.3 0.0 - 0.4 x10E3/uL [facility] ACCOUNT BILL Basophils Absolute 0.1 0.0 - 0.2 x10E3/uL [facility] ACCOUNT BILL Comment Hematology NOT AVAIL. [facility] ACCOUNT BILL 06/22/2008 5:42 PM SPECIAL EDUCATION MATH TEACHER 06/22/2008 9:42 PM SPECIAL EDUCATION MATH TEACHER Narrative [facility] ACCOUNT BILL - 06/23/2008 8:39 AM SPECIAL EDUCATION MATH TEACHER Additional Result Information HEMATOLOGY COMMENTS: ??BLOOD,URINE ([facility]): RESULT NOT AVAILABLE Resulting Agency Comment [facility] [address] ??[facility] [phone] Isidro Heredia MD LAB - HEMATOLOGY OR DERABLES [facility] ACCOUNT BILL documented in this encounter Visit Diagnoses Not on filedocumented in this encounter
--- OUTSIDE RECORDS SUMMARY | 2024-05-03 04:17 | XMS_ITS | Encounter Summary ---
Author Organization [facility] Address [address] [place] [address] [place] [address] Care Team Providers Care Contact Lens Manufacturer Name Role Phone Nolberto Nicole MD Primary Care Provider [phone] Reason for Visit * Reason Comments Rheumatoid Arthritis followup Encounter Details Date Type Department Care Team (Late st Contact Info) Description 08/24/2008 5:45 PM CDT Office Visit [facility] - Rheumatology [address] [place] [address] [phone] Isidro Heredia MD [address] [place] [address] Rheumatoid Arthritis (HCC) (Primary Dx); Osteopenia Social [...] Reading Time Taken Comments Blood Pressure 130/86 08/24/2008 6:08 PM CDT Pulse 80 08/24/2008 6:08 PM CDT Temperature - - Respiratory Rate - - Oxygen Saturation - - Inhaled Oxygen Concentration - - Weight 107 kg (236 lb) 08/24/2008 6:08 PM CDT Height - - Body Mass Index 33.86 07/27/2008 3:57 PM CDT documented in this encounter Progress Notes * Emily Salinas RN - 09/15/2008 11:23 AM CDTQuick Note: Labs called * Emily Salinas RN - 08/28/2008 2:44 PM CDTQuick Note: Notified patient labs are ok, same RX * Emily Salinas RN - 08/28/2008 2:44 PM CDTQuick Note: Notified patient labs are ok, same RX * Isidro Heredia MD - 08/26/2008 8:47 AM CDTQuick Note: All labs ok incltest for ra Send labs topcp * Isidro Heredia MD - 08/24/2008 6:43 PM CDT Subjective: Chalino Deng 47 y.o. male Chief Complaint Patient presents with ??? Rheumatoid Arthritis followup Nauseated from vicodin. Arthritis worse Poor sleep prednisone up to 20 mg/day Current outpatient prescriptions prior to encounter Medication Sig Dispense Refill ??? naproxen (NAPROSYN) 500 MG tablet Take 500 mg by mouth 2 times daily. ??? Methotrexate (Anti-Rheumatic) 2.5 MG TABS Take 6 Tabs by mouth every 7 days. ??? PREVACID PO Take by mouth daily. ??? hydrocodone-acetaminophen (VICODIN) 5-500 MG tablet Take 1 Tab by mouth every 4 hours as neededfor Pain. ??? HUMIRA PEN SC Inject subcutaneously every 14 days. ??? NEXIUM 40 MG CPDR Take 40 mg by mouth daily before breakfast. Patient Active Problem List Diagnoses Code ??? Rheumatoid Arthritis 714.0 ??? GERD (Gastroesophageal Reflux Disease) 530.81S ??? Osteopenia 733.90X History Tobacco Use Never History Alcohol Use History Drug Use Not on file Pain Level: 10/10 Am stiffness 4 hrs Global 8/10 Fatigue yes Medication Side Effects yes Review of Systems: GENERAL: No fever, chills, [...] No cyanosis, clubbing, edema OTHER: Objective: BP 130/86 Pulse 80 Wt 107.049 kg (236 lb) Tender Joint Count 26 Swollen Joint Count 14 Muscles: Weak or Tender no Rheumatoid Nodules: no Physical Exam: HEENT perrla, hearing and vision [...] protein ??? Sed rate westergren auto ??? T4 total ??? Uric acid blood ??? Tsh ??? Hemoglobin a1c ??? Cyclic citrul peptide antibody igg (ccp) ??? Rheumatoid factor blood quantitative ??? Actonel 150 mg po tabs ??? Zyrtec 10 mg po tabs ??? Hydroxychloroquine sulfate 200 mg po tabs ??? Prednisone 10 mg po tabs ??? Cyclobenzaprine hcl 10 mg po tabs Send labs to sofia britt q week x 2 Follow up in office in 4 weeks * Emily Salinas RN - 08/24/2008 6:05 PM CDT BP 130/86 Pulse 80 Wt 107.049 kg (236 lb) GH level today 10/10 Joint pain Shoulders, neck, hands, knees Joint swelling hands Joint stiffness neck Fatigue level moderate RX side effects nauseated from the Vicodin Need labs lipid panel, Free T4 ,TSH,hemoglobin AIc fax results to Dr. Alonso [phone] [place] [employer] documented in this encounter Plan of Treatment Upcoming Encounters Date Type Department Care Team (Late st Contact Info) Description 06/03/2024 1:00 PM GAME ADVISOR Appointment [facility] - Rheumatology [address] [place] [address] [phone] 06/03/2024 2:00 PM GAME ADVISOR Office Visit [facility] - Rheumatology [address] [place] [address] [phone] Gloria Smith MD [address] [place] [phone] Scheduled Orders Name Type Priority Associated Diagnoses Orde r Schedule CYCLIC CITRUL PEPTIDE ANTIBODY IGG (CCP) Lab Routine Rheumatoid Arthritis (HCC) Ordered: 08/24/2008 RHEUMATOID FACTOR BLOOD QUANTITATIVE Lab Routine Rheumatoid Arthritis (HCC) Ordered: 08/24/2008 documented as of this encounter Procedures Procedure Name Priority Date/Time Associated Diagnosis Comments URIC ACID BLOOD Routine 08/24/2008 6:37 PM CDT Rheumatoid Arthritis (HCC) C-REACTIVE PROTEIN Routine 08/24/2008 6: 37 PM CDT Rheumatoid Arthritis (HCC) HEMOGLOBIN A1C Routine 08/24/2008 6:37 PM CDT Rheumatoid Arthritis (HCC) ERYTHROCYTE SEDIMENTATION RATE Routine 08/24/2008 6:37 PM CDT Rheumatoid Arthritis (HCC) CBC W AUTO DIFFERENTIAL Routine 08/24/2008 6:37 PM CDT Rheumatoid Arthritis (HCC) COMPREHENSIVE METABOLIC PANEL Routine 08/24/2008 6:37 PM CDT Rheumatoid Arthritis (HCC) TSH Routine 08/24/2008 6:37 PM CDT Rheumatoid Arthritis (HCC) T4 TOTAL Routine 08/24/2008 6:37 PM CDT Rheumatoid Arthritis (HCC) documented in this encounter Results * HEMOGLOBIN A1C (08/24/2008 6:37 PM CDT) Hemoglobin A1c 5.6 <7.0 % [facility] INSURANCE BILL Comment: ?Diabetic Adult ?<7.0 ?Healthy Adult ?4.8 - 5.9 ?(DCCT/NGSP) ?[place] Diabetes Association's Summary of Glycemic ?Recommendations for Adults with Diabetes: ?Hemoglobin A1c <7.0%. More stringent glycemic goals ?(A1c <6.0%) may further reduce complications at the ?cost of increased risk of hypoglycemia. BLOOD SPECIMEN / Unknown 08/24/2008 6:37 PM CDT 08/24/2008 9:56 PM CDT Narrative Resulting Agency Comment [facility] [place] [address] ??[facility] [phone] Isidro Heredia MD LAB - CHEMISTRY ORD ERABLES [facility] INSURANCE BILL * TSH (08/24/2008 6:37 PM CDT) TSH 1.487 0.450 - 4.500 uIU/mL [facility] INSURANCE BILL BLOOD SPECIMEN / Unknown 08/24/2008 6:37 PM CDT 08/24/2008 9:56 PM CDT Narrative Resulting Agency Comment [facility] [address] ??[facility] [phone] Isidro Heredia MD LAB - CHEMISTRY ORD ERABLES Performing Organization Address [facility] Co de Phone Number [facility] INSURANCE BILL * URIC ACID BLOOD (08/24/2008 6:37 PM CDT) Uric Acid 5.1 2.4 - 8.2 mg/dL [facility] INSURANCE BILL BLOOD SPECIMEN / Unknown 08/24/2008 6:37 PM CDT 08/24/2008 9:56 PM CDT Narrative Resulting Agency Comment [facility] [place] [address] ??[facility] [phone] Isidro Heredia MD LAB - CHEMISTRY ORD ERABLES Performing Organization Address City/[facility] Co de Phone Number [facility] INSURANCE BILL * T4 TOTAL (08/24/2008 6:37 PM CDT) T4 Total 8.7 4.5 - 12.0 ug/dL [facility] INSURANCE BILL BLOOD SPECIMEN / Unknown 08/24/2008 6:37 PM CDT 08/24/2008 9:56 PM CDT Narrative Resulting Agency Comment [facility] [address] ??[facility] [phone] Isidro Heredia MD LAB - CHEMISTRY ORD ERABLES [facility] INSURANCE BILL * SED RATE WESTERGREN AUTO (08/24/2008 6:37 PM CDT) Erythrocyte Sedimentation Rate Westergren 10 0 - 15 mm/hr [facility] INSURANCE BILL BLOOD SPECIMEN / Unknown 08/24/2008 6:37 PM CDT 08/24/2008 9:56 PM CDT Narrative Resulting Agency Comment [address] ??[facility] [phone] Isidro Heredia MD LAB - HEMATOLOGY OR DERABLES Performing Organization Address [facility] Co de Phone Number [facility] INSURANCE BILL * (ABNORMAL) C-REACTIVE PROTEIN (08/24/2008 6:37 PM CDT) C-Reactive Protein 5.2(H) 0.0 - 4.9 mg/L [facility] INSURANCE BILL BLOOD SPECIMEN / Unknown 08/24/2008 6:37 PM CDT 08/24/2008 9:56 PM CDT Narrative Resulting Agency Comment [address] ??[facility] [phone] Isidro Heredia MD LAB - CHEMISTRY ORD ERABLES Performing Organization Address [facility] Co de Phone Number [facility] INSURANCE BILL * (ABNORMAL) COMPREHENSIVE METABOLIC PANEL (08/24/2008 6:37 PM CDT) Glucose 109(H) 65 - 99 mg/dL [facility] INSURANCE BILL BUN 16 5 - 26 mg/dL [facility] INSURANCE BILL Creatinine 0.93 0.76 - 1.27 mg/dL [facility] INSURANCE BILL eGFR by MDRD >59 >59 mL/min/1.7 3 [facility] INSURANCE BILL eGFR by MDRD >59 >59 mL/min/1.7 3 [facility] INSURANCE BILL Comment: Note: ??Persistent reduction for 3 months or more in an eGFR <60 mL/min/1.73 m2 defines CKD. ??Patients with eGFR values >/=60 mL/min/1.73 m2 may also have CKD if evidence of persistent proteinuria is present. Additional information may be found at www.kdoqi.org. BUN/Creatinine Ratio 17 8 - 27 [facility] INSURANCE BILL Sodium 137 135 - 145 mmol/L [facility] INSURANCE BILL Potassium 4.0 3.5 - 5.2 mmol/L [facility] INSURANCE BILL Chloride 101 97 - 108 mmol/L [facility] INSURANCE BILL CO2 21 20 - 32 mmol/L [facility] INSURANCE BILL Calcium 9.9 8.5 - 10.6 mg/dL [facility] INSURANCE BILL Protein Total 7.2 6.0 - 8.5 g/dL [facility] INSURANCE BILL Albumin 4.5 3.5 - 5.5 g/dL [facility] INSURANCE BILL Globulin Total 2.7 1.5 - 4.5 g/dL [facility] INSURANCE BILL Albumin/Globulin Ratio 1.7 1.1 - 2.5 [facility] INSURANCE BILL Bilirubin Total 0.6 0.1 - 1.2 mg/dL [facility] INSURANCE BILL Alkaline Phosphatase 93 25 - 150 IU/L [facility] INSURANCE BILL AST 27 0 - 40 IU/L [facility] INSURANCE BILL ALT 35 0 - 55 IU/L [facility] INSURANCE BILL BLOOD SPECIMEN / Unknown 08/24/2008 6:37 PM CDT 08/24/2008 9:56 PM CDT Narrative Resulting Agency Comment [facility] [address] ??[facility] [phone] Isidro Heredia MD LAB - CHEMISTRY ORD ERABLES [facility] INSURANCE BILL * CBC W AUTO DIFFERENTIAL (08/24/2008 6:37 PM CDT) WBC 9.5 4.0 - 10.5 x10E3/uL [facility] INSURANCE BILL RBC 4.38 4.10 - 5.60 x10E6/uL [facility] INSURANCE BILL Hemoglobin 13.3 12.5 - 17.0 g/dL [facility] INSURANCE BILL Hematocrit 39.3 36.0 - 50.0 % [facility] INSURANCE BILL MCV 90 80 - 98 fL [facility] INSURANCE BILL MCH 30.5 27.0 - 34.0 pg [facility] INSURANCE BILL MCHC 33.9 32.0 - 36.0 g/dL [facility] INSURANCE BILL RDW 14.7 11.7 - 15.0 % [facility] INSURANCE BILL Platelet Count 190 140 - 415 x10E3/uL [facility] INSURANCE BILL Granulocytes % 72 40 - 74 % [facility] INSURANCE B[facility] Lymphocytes % 23 14 - 46 % [facility] INSURANCE BILL Monocytes % 4 4 - 13 % [facility] INSURANCE BILL Eosinophils % 1 0 - 7 % [facility] INSURANCE BILL Basophils % 0 0 - 3 % [facility] INSURANCE BILL Granulocytes Absolute 6.8 1.8 - 7.8 x10E3/uL [facility] INSURANCE BILL Lymphocytes Absolute 2.2 0.7 - 4.5 x10E3/uL [facility] INSURANCE BILL Monocytes Absolute 0.4 0.1 - 1.0 x10E3/uL [facility] INSURANCE BILL Eosinophils Absolute 0.1 0.0 - 0.4 x10E3/uL [facility] INSURANCE BILL Basophils Absolute 0.0 0.0 - 0.2 x10E3/uL [facility] INSURANCE BILL Comment Hematology NOT AVAIL. [facility] INSURANCE BILL BLOOD SPECIMEN / Unknown 08/24/2008 6:37 PM CDT 08/24/2008 9:56 PM CDT Narrative [facility] INSURANCE BILL - 08/26/2008 4:08 AM CDT Additional Result Information HEMATOLOGY COMMENTS: ??BLOOD,URINE ([facility]): RESULT NOT AVAILABLE Resulting Agency Comment [facility] [address] ??[facility] [phone] Isidro Heredia MD LAB - HEMATOLOGY OR DERABLES [facility] INSURANCE BILL documented in this encounter Visit Diagnoses Diagnosis Rheumatoid arthritis(714.0) ([facility])- Primary Rheumatoid arthritis Osteopenia Disorder of bone and cartilage, unspecified documented in this encounter Care Teams Contact Lens Manufacturer Relationship Specialty Start Date End Date Nolberto Nicole MD PCP - General 07/21/08 12/30/13 documented as of this encounter
--- OUTSIDE RECORDS SUMMARY | 2024-05-03 04:17 | XMS_ITS | Encounter Summary ---
Author Organization [facility] Address [address] [place] [address] Care Team Providers Care Health And Human Performance Professor Name Role Phone Unavailable Primary Care Provider Unavailabl e Encounter Details Date Type Department Care Team (Late st Contact Info) Description 03/30/2008 Orders Only [facility] - Family Medicine [address] [place] [address] Isidro Heredia MD [address] [place] [phone] Social History Tobacco Use Types Packs/Day Years Used Date Smoking Tobacco: Never Assessed Sex and Gender Information Value Date Recorded Sex Assigned at Not on file Gender Identity Not on file Sexual Orientation Not on file documented as of this encounter Plan of Treatment Upcoming Encounters Date Type Department Care Team (Late st Contact Info) Description 06/03/2024 1:00 PM TEACHERS AIDE Appointment [facility] - Rheumatology [address] [place] [address] 06/03/2024 2:00 PM TEACHERS AIDE Office Visit [facility] - Rheumatology [address] [place] [address] Gloria Smith MD [address] [place] [phone] documented as of this encounter Procedures Procedure Name Priority Date/Time Associated Diagnosis Comments C-REACTIVE PROTEIN 03/30/2008 4: 45 PM TEACHERS AIDE ERYTHROCYTE SEDIMENTATION RATE 03/30/2008 4:45 PM TEACHERS AIDE CBC W AUTO DIFFERENTIAL 03/30/2008 4:45 PM TEACHERS AIDE COMPREHENSIVE METABOLIC PANEL 03/30/2008 4:45 PM TEACHERS AIDE documented in this encounter Results * C-REACTIVE PROTEIN (03/30/2008 4:45 PM TEACHERS AIDE) C-Reactive Protein 3.2 0.0 - 4.9 mg/L [facility] ACCOUNT BILL 03/30/2008 4:45 PM TEACHERS AIDE 03/30/2008 10:25 PM TEACHERS AIDE Narrative Resulting Agency Comment [facility] [address] ??[facility] [phone] Isidro Heredia MD LAB - CHEMISTRY ORD ERABLES Performing Organization Address [facility] de Phone Number [facility] ACCOUNT BILL * SED RATE WESTERGREN AUTO (03/30/2008 4:45 PM TEACHERS AIDE) Erythrocyte Sedimentation Rate Westergren 10 0 - 15 mm/hr [facility] ACCOUNT BILL 03/30/2008 4:45 PM TEACHERS AIDE 03/30/2008 10:25 PM TEACHERS AIDE Narrative Resulting Agency Comment [facility] [address] ??[facility] [phone] Isidro Heredia MD LAB - HEMATOLOGY OR DERABLES Performing Organization Address City/[facility] Co de Phone Number [facility] ACCOUNT BILL * COMPREHENSIVE METABOLIC PANEL (03/30/2008 4:45 PM TEACHERS AIDE) Glucose 94 65 - 99 mg/dL [facility] ACCOUNT BILL BUN 13 5 - 26 mg/dL [facility] ACCOUNT BILL [...] may be found at www.kdoqi.org. BUN/Creatinine Ratio 14 8 - 27 [facility] ACCOUNT BILL Sodium 141 135 - 145 mmol/L [facility] ACCOUNT BILL Potassium 4.3 3.5 - 5.2 mmol/L [facility] ACCOUNT BILL Chloride 104 97 - 108 mmol/L [facility] ACCOUNT BILL CO2 22 20 - 32 mmol/L [facility] ACCOUNT BILL Calcium 9.6 8.5 - 10.6 mg/dL [facility] ACCOUNT BILL Protein Total 7.6 [...] 0 - 55 IU/L [facility] ACCOUNT BILL 03/30/2008 4:45 PM TEACHERS AIDE 03/30/2008 10:25 PM TEACHERS AIDE Narrative Resulting Agency Comment [facility] [address] ??[facility] [phone] Isidro Heredia MD LAB - CHEMISTRY ORD ERABLES [facility] ACCOUNT BILL * CBC W AUTO DIFFERENTIAL (03/30/2008 4:45 PM TEACHERS AIDE) WBC 8.9 4.0 - 10.5 x10E3/uL [facility] ACCOUNT BILL Comment: Effective April 06, 2008, the pediatric reference intervals ??will be changing on all result codes that are included in ??CBC With Differential/Platelet([id number]). RBC 4.57 4.10 - 5.60 x10E6/uL [facility] ACCOUNT BILL Hemoglobin 13.9 12.5 - 17.0 g/dL [facility] ACCOUNT BILL Hematocrit 40.6 36.0 - 50.0 % [facility] ACCOUNT BILL MCV 89 80 - 98 fL [facility] ACCOUNT BILL MCH 30.3 27.0 - 34.0 pg [facility] ACCOUNT BILL MCHC 34.1 32.0 - 36.0 g/dL [facility] ACCOUNT BILL RDW 14.6 11.7 - 15.0 % [facility] ACCOUNT BILL [...] 3 % [facility] ACCOUNT BILL Granulocytes Absolute 5.7 1.8 - 7.8 x10E3/uL [facility] ACCOUNT BILL Lymphocytes Absolute 2.5 0.7 - 4.5 x10E3/uL [facility] ACCOUNT BILL Monocytes Absolute 0.5 0.1 - 1.0 x10E3/uL [facility] ACCOUNT BILL Eosinophils Absolute 0.2 0.0 - 0.4 x10E3/uL [facility] ACCOUNT BILL Basophils Absolute 0.0 0.0 - 0.2 x10E3/uL [facility] ACCOUNT BILL Comment Hematology NOT AVAIL. [facility] ACCOUNT BILL 03/30/2008 4:45 PM TEACHERS AIDE 03/30/2008 10:25 PM TEACHERS AIDE Narrative [facility] ACCOUNT BILL - 03/31/2008 9:36 AM TEACHERS AIDE Additional Result Information HEMATOLOGY COMMENTS: ??BLOOD,URINE ([facility]): RESULT NOT AVAILABLE Resulting Agency Comment [facility] [address] ??[facility] [phone] Isidro Heredia MD LAB - HEMATOLOGY OR DERABLES [facility] ACCOUNT BILL documented in this encounter Visit Diagnoses Not on filedocumented in this encounter
--- OUTSIDE RECORDS SUMMARY | 2024-05-03 04:17 | XMS_ITS | Encounter Summary ---
Author Organization [facility] Address [address] [place] [address] [place] [address] Care Team Providers Care Director Records Management Name Role Phone Nolberto Nicole MD Primary Care Provider [phone] Reason for Visit * Reason Comments Rheumatoid Arthritis followup Encounter Details Date Type Department Care Team (Late st Contact Info) Description 07/27/2008 3:30 PM CDT Office Visit [facility] - Rheumatology [address] [place] [address] [phone] Isidro Heredia MD [address] [place], [place] [phone] Rheumatoid Arthritis (HCC) (Primary Dx) Social History [...] - - Weight 105.7 kg (233 lb) 07/27/2008 3:57 PM CDT Height 177.8 cm (5' 10 ) 07/27/2008 3:57 PM CDT Body Mass Index 33.43 07/27/2008 3:57 PM CDT documented in this encounter Progress Notes * Emily Salinas RN - 07/30/2008 4:47 PM CDTQuick Note: Notified patient labs are ok, stay on same MTX dose. * Isidro Heredia MD - 07/28/2008 3:08 PM CDTQuick Note: Mtx ok * Isidro Heredia MD - 07/27/2008 4:35 PM CDT Subjective: Chalino Deng 47 y.o. male Chief Complaint Patient presents with ??? Rheumatoid Arthritis followup doing ok w/o change, c/o pain base of neck Current outpatient prescriptions prior to encounter Medication Sig Dispense Refill ??? naproxen (NAPROSYN) 500 MG tablet Take 500 mg by mouth 2 times daily. ??? PLAQUENIL 200 MG TABS Take 200 mg by mouth 2 times daily. ??? Methotrexate (Anti-Rheumatic) 2.5 MG TABS Take 6 Tabs by mouth every 7 days. ??? predniSONE (DELTASONE) 10 MG tablet Take 10 mg by mouth daily. ??? PREVACID PO Take by mouth daily. ??? hydrocodone-acetaminophen (VICODIN) 5-500 MG tablet Take 1 Tab by mouth every 4 hours as neededfor Pain. ??? HUMIRA PEN SC Inject subcutaneously every 14 days. ??? NEXIUM 40 MG CPDR Take 40 mg by mouth daily before breakfast. Patient Active Problem List Diagnoses Code ??? Rheumatoid Arthritis 714.0 ??? GERD (Gastroesophageal Reflux Disease) 530.81S History Tobacco Use Never History Alcohol Use History Drug Use Not on file Pain Level: 7/10 Am stiffness 1 hr Global 6/10 Fatigue after work exhaustion Medication Side Effects no Review of Systems: [...] EXTREMITIES: No cyanosis, clubbing, edema OTHER: Objective: Ht 1.778 m (5' 10 ) Wt 105.688 kg (233 lb) Tender Joint Count 26 Swollen Joint [...] office in 4 weeks Same meds * Emily Salinas RN - 07/27/2008 4:06 PM CDT GH level today 7/10 Joint pain Rt shoulder still bothers, injection help temporarily, neck sharp pain and acid indigestion triggers taken twice on Vicodin for shoulder pain Joint swelling hands mild Fatigue level yes RX side effects none documented in this encounter Plan of Treatment Upcoming Encounters Date Type Department Care Team (Late st Contact Info) Description 06/03/2024 1:00 PM EXPORT MANAGER Appointment [facility] - Rheumatology [address] [place] [address] 06/03/2024 2:00 PM EXPORT MANAGER Office Visit [facility] - Rheumatology [address] [place] [address] Gloria Smith MD [address] [place] [phone] documented as of this encounter Procedures Procedure Name Priority Date/Time Associated Diagnosis Comments C-REACTIVE PROTEIN Routine 07/27/2008 4: 39 PM CDT Rheumatoid Arthritis (HCC) ERYTHROCYTE SEDIMENTATION RATE Routine 07/27/2008 4:39 PM CDT Rheumatoid Arthritis (HCC) CBC W AUTO DIFFERENTIAL Routine 07/27/2008 4:39 PM CDT Rheumatoid Arthritis (HCC) COMPREHENSIVE METABOLIC PANEL Routine 07/27/2008 4:39 PM CDT Rheumatoid Arthritis (HCC) documented in this encounter Results * SED RATE WESTERGREN AUTO (07/27/2008 4:39 PM CDT) Erythrocyte Sedimentation Rate Westergren 6 0 - 15 mm/hr [facility] ACCOUNT BILL BLOOD SPECIMEN / Unknown 07/27/2008 4:39 PM CDT 07/27/2008 9:25 PM CDT Narrative Resulting Agency Comment [facility] [place] [address] ??[facility] [phone] Isidro Heredia MD LAB - HEMATOLOGY OR DERABLES [facility] ACCOUNT BILL * C-REACTIVE PROTEIN (07/27/2008 4:39 PM CDT) C-Reactive Protein 3.0 0.0 - 4.9 mg/L [facility] ACCOUNT BILL BLOOD SPECIMEN / Unknown 07/27/2008 4:39 PM CDT 07/27/2008 9:25 PM CDT Narrative Resulting Agency Comment [facility] [place] [address] ??[facility] [phone] Isidro Heredia MD LAB - CHEMISTRY ORD ERABLES [facility] ACCOUNT BILL * COMPREHENSIVE METABOLIC PANEL (07/27/2008 4:39 PM CDT) Glucose 84 65 - 99 mg/dL [facility] ACCOUNT BILL [...] - 108 mmol/L [facility] ACCOUNT BILL CO2 25 20 - 32 mmol/L [facility] ACCOUNT BILL Calcium 9.7 8.5 - 10.6 mg/dL [facility] ACCOUNT BILL [...] [facility] ACCOUNT BILL BLOOD SPECIMEN / Unknown 07/27/2008 4:39 PM CDT 07/27/2008 9:25 PM CDT Narrative Resulting Agency Comment [facility] [address] ??[facility] [phone] Isidro Heredia MD LAB - CHEMISTRY ORD ERABLES [facility] ACCOUNT BILL * CBC W AUTO DIFFERENTIAL (07/27/2008 4:39 PM CDT) WBC 9.7 4.0 - 10.5 x10E3/uL [facility] ACCOUNT BILL RBC 4.42 4.10 - 5.60 x10E6/uL [facility] ACCOUNT BILL Hemoglobin 13.6 12.5 - 17.0 g/dL [facility] ACCOUNT BILL Hematocrit 40.8 36.0 - 50.0 % [facility] ACCOUNT BILL MCV 92 80 - 98 fL [facility] ACCOUNT BILL MCH 30.8 27.0 - 34.0 pg [facility] ACCOUNT BILL MCHC 33.4 32.0 - 36.0 g/dL [facility] ACCOUNT BILL RDW 14.6 11.7 - 15.0 % [facility] ACCOUNT BILL Platelet Count 184 140 - 415 x10E3/uL [facility] ACCOUNT BILL [...] [facility] ACCOUNT BILL BLOOD SPECIMEN / Unknown 07/27/2008 4:39 PM CDT 07/27/2008 9:25 PM CDT Narrative [facility] ACCOUNT BILL - 07/28/2008 9:34 AM CDT Additional Result Information HEMATOLOGY COMMENTS: ??BLOOD,URINE ([facility]): RESULT NOT AVAILABLE Resulting Agency Comment [facility] [address] ??[facility] [phone] Isidro Heredia MD LAB - HEMATOLOGY OR DERABLES [facility] ACCOUNT BILL documented in this encounter Visit Diagnoses Diagnosis Rheumatoid arthritis(714.0) (HCC)- Primary Rheumatoid arthritis documented in this encounter Care Teams Director Records Management Relationship Specialty Start Date End Date Nolberto Nicole MD PCP - General 07/21/08 12/30/13 documented as of this encounter
--- OUTSIDE RECORDS SUMMARY | 2024-05-03 04:17 | XMS_ITS | Encounter Summary ---
Author Organization [facility] Address [address] [place] [address] Care Team Providers Care Cloth Cutter Name Role Phone Unavailable Primary Care Provider Unavailabl e Encounter Details Date Type Department Care Team (Late st Contact Info) Description 04/20/2008 Orders Only [facility] - Family Medicine [address] [place] [phone] Isidro Heredia MD [address] [place] [address] Social History Tobacco Use Types Packs/Day Years Used Date Smoking Tobacco: Never Assessed Sex and Gender Information Value Date Recorded Sex Assigned at Not on file Gender Identity Not on file Sexual Orientation Not on file documented as of this encounter Plan of Treatment Upcoming Encounters Date Type Department Care Team (Late st Contact Info) Description 06/03/2024 1:00 PM COOKIE BREAKER Appointment [facility] - Rheumatology [address] [place] [address] 06/03/2024 2:00 PM COOKIE BREAKER Office Visit [facility] - Rheumatology [address] [place] [address] Glorai Smith MD [address] [place] [phone] documented as of this encounter Procedures Procedure Name Priority Date/Time Associated Diagnosis Comments C-REACTIVE PROTEIN 04/20/2008 5: 32 PM COOKIE BREAKER ERYTHROCYTE SEDIMENTATION RATE 04/20/2008 5:32 PM COOKIE BREAKER CBC W AUTO DIFFERENTIAL 04/20/2008 5:32 PM COOKIE BREAKER COMPREHENSIVE METABOLIC PANEL 04/20/2008 5:32 PM COOKIE BREAKER documented in this encounter Results * C-REACTIVE PROTEIN (04/20/2008 5:32 PM COOKIE BREAKER) C-Reactive Protein 1.9 0.0 - 4.9 mg/L [facility] ACCOUNT BILL 04/20/2008 5:32 PM COOKIE BREAKER 04/20/2008 9:26 PM COOKIE BREAKER Narrative Resulting Agency Comment [facility] [address] ??[facility] [phone] Isidro Heredia MD LAB - CHEMISTRY ORD ERABLES Performing Organization Address [facility] Co de Phone Number [facility] ACCOUNT BILL * SED RATE WESTERGREN AUTO (04/20/2008 5:32 PM COOKIE BREAKER) Erythrocyte Sedimentation Rate Westergren 6 0 - 15 mm/hr [facility] ACCOUNT BILL 04/20/2008 5:32 PM COOKIE BREAKER 04/20/2008 9:26 PM COOKIE BREAKER Narrative Resulting Agency Comment [facility] [address] ??[facility] [phone] Isidro Heredia MD LAB - HEMATOLOGY OR DERABLES Performing Organization Address [facility] Co de Phone Number [facility] ACCOUNT BILL * COMPREHENSIVE METABOLIC PANEL (04/20/2008 5:32 PM COOKIE BREAKER) Glucose 94 65 - 99 mg/dL [facility] [...] 10.6 mg/dL [facility] ACCOUNT BILL Protein Total 7.0 6.0 - 8.5 g/dL [facility] ACCOUNT BILL Albumin 4.3 3.5 - 5.5 g/dL [facility] ACCOUNT BILL Globulin Total 2.7 1.5 - 4.5 g/dL [facility] ACCOUNT BILL Albumin/Globulin Ratio 1.6 1.1 - 2.5 [facility] ACCOUNT BILL Bilirubin Total 0.3 0.1 - 1.2 mg/dL [facility] ACCOUNT BILL Alkaline Phosphatase 81 25 - 150 IU/L [facility] ACCOUNT BILL AST 22 0 - 40 IU/L [facility] ACCOUNT BILL ALT 23 0 - 55 IU/L [facility] ACCOUNT BILL 04/20/2008 5:32 PM COOKIE BREAKER 04/20/2008 9:26 PM COOKIE BREAKER Narrative Resulting Agency Comment [facility] [address] ??[facility] [phone] Isidro Heredia MD LAB - CHEMISTRY ORD ERABLES [facility] ACCOUNT BILL * (ABNORMAL) CBC W AUTO DIFFERENTIAL (04/20/2008 5:32 PM COOKIE BREAKER) WBC 9.4 4.0 - 10.5 x10E3/uL [facility] ACCOUNT BILL RBC 4.17 4.10 - 5.60 x10E6/uL [facility] ACCOUNT BILL Hemoglobin 12.5 12.5 - 17.0 g/dL [facility] ACCOUNT BILL Hematocrit 37.3 36.0 - 50.0 % [facility] ACCOUNT BILL MCV 89 80 - 98 fL [facility] ACCOUNT BILL MCH 30.0 27.0 - 34.0 pg [facility] ACCOUNT BILL MCHC 33.6 32.0 - 36.0 g/dL [facility] ACCOUNT BILL RDW 15.1(H) 11.7 - 15.0 % [facility] ACCOUNT BILL Platelet Count 187 140 - 415 x10E3/uL [facility] ACCOUNT BILL Granulocytes % 55 40 - 74 % [facility] ACCOUNT BILL Lymphocytes % 36 14 - 46 % [facility] ACCOUNT BILL Monocytes % 6 4 - 13 % [facility] ACCOUNT BILL Eosinophils % 3 0 - 7 % [facility] ACCOUNT BILL Basophils % 0 0 - 3 % [facility] ACCOUNT BILL Granulocytes Absolute 5.2 1.8 - 7.8 x10E3/uL [facility] ACCOUNT BILL Lymphocytes Absolute 3.4 0.7 - 4.5 x10E3/uL [facility] ACCOUNT BILL Monocytes Absolute 0.6 0.1 - 1.0 x10E3/uL [facility] ACCOUNT BILL Eosinophils Absolute 0.3 0.0 - 0.4 x10E3/uL [facility] ACCOUNT BILL Basophils Absolute 0.0 0.0 - 0.2 x10E3/uL [facility] ACCOUNT BILL Comment Hematology NOT AVAIL. [facility] ACCOUNT BILL 04/20/2008 5:32 PM COOKIE BREAKER 04/20/2008 9:26 PM COOKIE BREAKER Narrative [facility] ACCOUNT BILL - 04/21/2008 8:27 AM COOKIE BREAKER Additional Result Information HEMATOLOGY COMMENTS: ??BLOOD,URINE ([facility]): RESULT NOT AVAILABLE Resulting Agency Comment [facility] [address] ??[facility] [phone] Isidro Heredia MD LAB - HEMATOLOGY OR DERABLES [facility] ACCOUNT BILL documented in this encounter Visit Diagnoses Not on filedocumented in this encounter
--- OUTSIDE RECORDS SUMMARY | 2024-05-03 04:17 | XMS_ITS | Encounter Summary ---
Author Organization [facility] Address [address] [place] [address] Care Team Providers Care Scrap Handler Name Role Phone Unavailable Primary Care Provider Unavailabl e Encounter Details Date Type Department Care Team (Late st Contact Info) Description 05/18/2008 Orders Only [facility] - Family Medicine [address] [place] [address] Isidro Heredia MD [address] [place] [address] Social History Tobacco Use Types Packs/Day Years Used Date Smoking Tobacco: Never Assessed Sex and Gender Information Value Date Recorded Sex Assigned at Not on file Gender Identity Not on file Sexual Orientation Not on file documented as of this encounter Plan of Treatment Upcoming Encounters Date Type Department Care Team (Late st Contact Info) Description 06/03/2024 1:00 PM MEDIA/INSTRUCTIONAL DESIGNER Appointment [facility] - Rheumatology [address] [place] [address] 06/03/2024 2:00 PM MEDIA/INSTRUCTIONAL DESIGNER Office Visit [facility] - Rheumatology [address] [place] [address] Gloria Smith MD [address] [place] [phone] documented as of this encounter Procedures Procedure Name Priority Date/Time Associated Diagnosis Comments RHEUMATOID FACTOR BLOOD QUANTITATIVE 05/18/2008 5:47 PM MEDIA/INSTRUCTIONAL DESIGNER C-REACTIVE PROTEIN 05/18/2008 5: 47 PM MEDIA/INSTRUCTIONAL DESIGNER ERYTHROCYTE SEDIMENTATION RATE 05/18/2008 5:47 PM MEDIA/INSTRUCTIONAL DESIGNER CBC W AUTO DIFFERENTIAL 05/18/2008 5:47 PM MEDIA/INSTRUCTIONAL DESIGNER COMPREHENSIVE METABOLIC PANEL 05/18/2008 5:47 PM MEDIA/INSTRUCTIONAL DESIGNER documented in this encounter Results * C-REACTIVE PROTEIN (05/18/2008 5:47 PM MEDIA/INSTRUCTIONAL DESIGNER) C-Reactive Protein 1.8 0.0 - 4.9 mg/L [facility] ACCOUNT BILL 05/18/2008 5:47 PM MEDIA/INSTRUCTIONAL DESIGNER 05/18/2008 10:06 PM MEDIA/INSTRUCTIONAL DESIGNER Narrative Resulting Agency Comment [facility] [address] ??[facility] [phone] Isidro Heredia MD LAB - CHEMISTRY ORD ERABLES [facility] ACCOUNT BILL * SED RATE WESTERGREN AUTO (05/18/2008 5:47 PM MEDIA/INSTRUCTIONAL DESIGNER) Erythrocyte Sedimentation Rate Westergren 7 0 - 15 mm/hr [facility] ACCOUNT BILL 05/18/2008 5:47 PM MEDIA/INSTRUCTIONAL DESIGNER 05/18/2008 10:06 PM MEDIA/INSTRUCTIONAL DESIGNER Narrative Resulting Agency Comment [facility] [address] ??[facility] [phone] Isidro Heredia MD LAB - HEMATOLOGY OR DERABLES [facility] ACCOUNT BILL * RHEUMATOID FACTOR BLOOD QUANTITATIVE (05/18/2008 5:47 PM MEDIA/INSTRUCTIONAL DESIGNER) Rheumatoid Factor 5.5 0.0 - 13.9 IU/mL [facility] ACCOUNT BILL 05/18/2008 5:47 PM MEDIA/INSTRUCTIONAL DESIGNER 05/18/2008 10:06 PM MEDIA/INSTRUCTIONAL DESIGNER Narrative Resulting Agency Comment [facility] [address] [facility] ??[facility] [phone] Isidro Heredia MD LAB - CHEMISTRY ORD ERABLES [facility] ACCOUNT BILL * COMPREHENSIVE METABOLIC PANEL (05/18/2008 5:47 PM MEDIA/INSTRUCTIONAL DESIGNER) Glucose 90 65 - 99 mg/dL [facility] [...] - 40 IU/L [facility] ACCOUNT BILL ALT 30 0 - 55 IU/L [facility] ACCOUNT BILL 05/18/2008 5:47 PM MEDIA/INSTRUCTIONAL DESIGNER 05/18/2008 10:06 PM MEDIA/INSTRUCTIONAL DESIGNER Narrative Resulting Agency Comment [facility] [address] [facility] ??[facility] [phone] Isidro Heredia MD LAB - CHEMISTRY ORD ERABLES [facility] ACCOUNT BILL * CBC W AUTO DIFFERENTIAL (05/18/2008 5:47 PM MEDIA/INSTRUCTIONAL DESIGNER) WBC 10.5 4.0 - 10.5 x10E3/uL [facility] ACCOUNT BILL RBC 4.65 4.10 - 5.60 x10E6/uL [facility] ACCOUNT BILL Hemoglobin 13.9 12.5 - 17.0 g/dL [facility] ACCOUNT BILL Hematocrit 42.4 36.0 - 50.0 % [facility] ACCOUNT BILL MCV 91 80 - 98 fL [facility] ACCOUNT BILL MCH 29.9 27.0 - 34.0 pg [facility] ACCOUNT BILL MCHC 32.8 32.0 - 36.0 g/dL [facility] ACCOUNT BILL RDW 14.5 11.7 - 15.0 % [facility] ACCOUNT BILL Platelet Count 178 140 - 415 x10E3/uL [facility] ACCOUNT BILL Granulocytes % 53 40 - 74 % [facility] ACCOUNT BILL Lymphocytes % 36 14 - 46 % [facility] ACCOUNT BILL Monocytes % 6 4 - 13 % [facility] ACCOUNT BILL Eosinophils % 4 0 - 7 % [facility] ACCOUNT BILL Basophils % 1 0 - 3 % [facility] ACCOUNT BILL Granulocytes Absolute 5.6 1.8 - 7.8 x10E3/uL [facility] ACCOUNT BILL Lymphocytes Absolute 3.8 0.7 - 4.5 x10E3/uL [facility] ACCOUNT BILL Monocytes Absolute 0.6 0.1 - 1.0 x10E3/uL [facility] ACCOUNT BILL Eosinophils Absolute 0.4 0.0 - 0.4 x10E3/uL [facility] ACCOUNT BILL Basophils Absolute 0.1 0.0 - 0.2 x10E3/uL [facility] ACCOUNT BILL Comment Hematology NOT AVAIL. [facility] ACCOUNT BILL 05/18/2008 5:47 PM MEDIA/INSTRUCTIONAL DESIGNER 05/18/2008 10:06 PM MEDIA/INSTRUCTIONAL DESIGNER Narrative [facility] ACCOUNT BILL - 05/19/2008 9:28 AM MEDIA/INSTRUCTIONAL DESIGNER Additional Result Information HEMATOLOGY COMMENTS: ??BLOOD,URINE ([facility]): RESULT NOT AVAILABLE Resulting Agency Comment [facility] [address] ??[facility] [phone] Isidro Heredia MD LAB - HEMATOLOGY OR DERABLES [facility] ACCOUNT BILL documented in this encounter Visit Diagnoses Not on filedocumented in this encounter
--- OUTSIDE RECORDS SUMMARY | 2024-05-03 04:17 | XMS_ITS | Encounter Summary ---
Author Organization [facility] Address [address] [place] [address] Care Team Providers Care Com Writer Name Role Phone Nolberto Nicole MD Primary Care Provider [phone] Isidro Heredia MD Unavailable Tomas Hyman MD Primary Care Provider [phone] Tomas Hyman MD Primary Care Provider [phone] Encounter Details Date Type Department Care Team (Late st Contact Info) Description 08/18/2008 [facility] Outpatient Visit EXTERNAL NON-[facility] DEPT Isidro Heredia MD [address] [place] [address] Social History Tobacco Use Types Packs/Day [...] (Late Contact Info) Description 06/03/2024 1:00 PM EDGE BRUSHER Appointment [facility] - Rheumatology [address] [place] [phone] 06/03/2024 2:00 PM EDGE BRUSHER Office Visit [facility] - Rheumatology [address] [place] [address] Gloria Smith MD [facility] [place] [phone] documented as of this encounter Visit Diagnoses Not on filedocumented in this encounter Care Teams Com Writer Relationship Specialty Start Date End Date Nolberto Nicole MD PCP - General 07/21/08 12/30/13 Tomas Hyman MD [address] [place] [address] PCP - General Family Medicine 12/31/13 05/09/18 Tomas Hyman MD [address] [place] [address] PCP - General Family Medicine 09/05/18 Isidro Heredia MD Rheumatology 02/09/11 documented as of this encounter
--- OUTSIDE RECORDS SUMMARY | 2024-05-03 04:20 | XMS_ITS | CONTINUITY OF CARE DOCUMENT ---
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 not covered Rheumatoid arthritis active Bladimir Gomez Hyperlipidemia;NEG CRP and neg lpa active Bladimir Sanders MD Hypertriglyceridemia active Vijaya Eubanks lder Diverticulosis, colon active Bladimir Sanders MD BACK PAIN;sciatica sees scodary, on med rx active Bladimir Sanders MD Sinus tachycardia;nml tsh, due to pain, active Bladimir Sanders MD HTN essential;neg duplex active Bladimir kohler MD r/o Ischemia;ABNL NUC 15, 20% rca 15 completed - Bladimir Sanders MD Shortness of breath completed - Bladimir Sanders MD Aortic root dilatation completed 4 - Bladimir Sanders MD Diastolic dysfunction active Bladimir Sanders MD Mitral regurgitation, mild completed 09/10 - Bladimir Sanders MD COPD;DUE TO RA?, neg cxr, neg rhc 15 completed - Bladimir Sanders MD CAD;neg carotid duplex active Bladimir Sanders MD prefereds no x 2.5,neg pet 24 Screening active Bladimir Sanders MD PREDIABETES completed - Bladimir Sanders MD Nerve pain active Bladimir Sanders MD Sleep apnea active Bladimir Sanders MD Adenomatous colonic polyp active Bladimir ojeda MD Asthma completed - Bladimir Sanders MD Dyspnea on exertion completed - Bladimir Sanders MD Mitral insufficiency, mild active Bladimir viera MD Hypokalemia completed - Bladimir Sanders MD Exposure to SARS-associated coronavirus;neg igg and had vaccine active Bladimir Sanders MD Anemia, iron deficiency active Bladimir bowden MD r/o PVD;neg arvin completed - Bladimir Sanders MD ENCOUNTERS Date Type Provider Location Encounter Diag nosis - In-person encounter Office Visit Bladimir Sanders MD [facility] Obesity - In-person encounter Office Visit Bladimir Sanders MD [facility] Obesity - In-person encounter Office Visit Bladimir Sanders MD [facility] Obesity - In-person encounter Office Visit Bladimir Sanders MD [facility] CAD;neg carotid duplex - In-person encounter Office Visit Bladimir Sanders MD [facility] HypokalemiaExposure to SARS-associated coronavirus;neg igg and had vaccine - In-person encounter Office Visit Bladimir Sanders MD [facility] Exposure to SARS-associated coronavirus;neg igg and had vaccine - In-person encounter Office Visit Bladimir Sanders MD [facility] HTN essential;neg duplexAortic root dilatationr/o PVD;neg abiScreeningPREDIABETESAsthmaDyspnea on exertionMitral insufficiency, mild - In-person encounter Office Visit Bladimir Sanders MD [facility] COPD;DUE TO RA?, neg cxr, neg rhc 15Anemia, iron deficiencySleep apnea - In-person encounter Office Visit Bladimir Sanders MD [facility] Obesityr/o Ischemia;ABNL NUC 15, 20% rca 15Aortic root dilatationDiastolic dysfunctionAnemia, iron deficiencyNerve painSleep apneaAdenomatous colonic polyp - In-person encounter Office Visit Bladimir Sanders MD [facility] ObesityScreening - In-person encounter Office Visit Bladimir Sanders MD [facility] ObesitySinus tachycardia;nml tsh, due to pain,Aortic root dilatationMitral regurgitation, mildAnemia, iron deficiencyCAD;neg carotid duplex - In-person encounter Office Visit Bladimir Sanders MD [facility] Hyperlipidemia;NEG CRP and neg lpaBACK PAIN;sciatica sees scodary, on med rxSinus tachycardia;nml tsh, due to pain,HTN essential;neg duplexr/o Ischemia;ABNL NUC 15, 20% rca 15Shortness of breathAortic root dilatationDiastolic dysfunctionMitral regurgitation, mildCOPD;DUE TO RA?, neg cxr, neg rhc 15r/o PVD;neg arvin - In-person encounter Office Visit Bladimir Sanders MD [facility] ObesityRheumatoid arthritisHyperlipidemia;NEG CRP and neg lpaHypertriglyceridemiaDiverticulosis, colonBACK PAIN;sciatica sees scodary, on med rxSinus tachycardia;nml tsh, due to pain,HTN essential;neg duplexr/o Ischemia;ABNL NUC 15, 20% rca 15 VITAL SIGNS Date Observation Value Provider Body Mass Index (Ratio) 32.71 kg/m2 Esther Sanders MD oxygen saturation, oximetry 99 % Jenelle León pulse rate 72 /min Jenelle León weight E&M 228 [lb_av] Jenelle León blood pressure, cuff size regular Javon witt León blood pressure, diastolic 78 mm[Hg] Ta miryam León blood pressure, systolic 132 mm[Hg] Tab moises [place] respiratory rate E&M 12 /min Jenelle León height E&M 70 [in_i] Jenelle León Body Mass Index (Ratio) 31.99 kg/m2 Esther Sanders MD oxygen saturation, oximetry 99 % Jenelle [place] blood pressure, cuff size regular Javon witt [place] blood pressure, diastolic 90 mm[Hg] Javon witt [place] blood pressure, systolic 142 mm[Hg] Tab moises [place] pulse rate 89 /min Jenelle [place] weight E&M 223 [lb_av] Jenelle [facility] respiratory rate E&M 12 /min Jenelle León height E&M 70 [in_i] Jenelle [place] Body Mass Index (Ratio) 29.12 kg/m2 Esther Sanders MD blood pressure, diastolic 69 mm[Hg] Hannah nkLog blood pressure, systolic 106 mm[Hg] Isa kLog blood pressure, cuff size regular Tristan rret blood pressure, diastolic 69 mm[Hg] Ja rret blood pressure, systolic 106 mm[Hg] Jar ret pulse rate 79 /min Ham y respiratory rate E&M 12 /min Ham oxygen saturation, oximetry 96 % Ham weight E&M 203 [lb_av] Ham y height E&M 70 [in_i] Ham nassar Body Mass Index (Ratio) 30.70 kg/m2 Esther Sanders MD blood pressure, cuff size large Ta eddie Van blood pressure, diastolic 77 mm[Hg] Ta eddie Van blood pressure, systolic 125 mm[Hg] Loyd yosvany Van oxygen saturation, oximetry 98 % Eryn Van respiratory rate E&M 14 /min Eryn Van pulse rate 76 /min Eryn Van weight E&M 214.0 [lb_av] Eryn Delco height E&M 70 [in_i] Eryn Van Body Mass Index (Ratio) 35.58 kg/m2 Esther Sanders MD blood pressure, diastolic 70 mm[Hg] Hannah nkLogic blood pressure, systolic 114 mm[Hg] Isa kLogic pulse rate 81 /min Sherdee Harding [place]rose blood pressure, diastolic 70 mm[Hg] erkeithollis Montiel blood pressure, systolic 114 mm[Hg] She rkeithollis Montiel oxygen saturation, oximetry 97 % Sherdee Montiel respiratory rate E&M 18 /min Alex floresita Montiel weight E&M 248 [lb_av] Sherkeitha Craw [place] height E&M 70 [in_i] Sherkeitha Craw ambrose Body Mass Index (Ratio) 34.86 kg/m2 Esther Sanders MD blood pressure, diastolic 77 mm[Hg] To nsha Jarrett blood pressure, systolic 136 mm[Hg] Ton sha Jarrett oxygen saturation, oximetry 98 % Tonsha Jarrett respiratory rate E&M 16 /min Tonsha Jarrett pulse rate 78 /min Tonsha Jarrett blood pressure, resting Yes Tons shafer Jarrett weight E&M 243 [lb_av] Tonsha Jarrett height E&M 70 [in_i] Tonsha Jarrett temperature site temporal Kimberly Livel y temperature E&M 97.3 [degF] Kimberly Lively Body Mass Index (Ratio) 34.72 kg/m2 Esther Sanders MD blood pressure, cuff size large Ke mariam Govea blood pressure, diastolic 80 mm[Hg] Ke rrtae Govea blood pressure, systolic 116 mm[Hg] Sandy Govea oxygen saturation, oximetry 98 % Vijaya Govea respiratory rate E&M 18 /min Vijaya tellez pulse rate 82 /min Vijaya Eubanks lder weight E&M 242 [lb_av] Vijaya Eubanks lder height E&M 70 [in_i] Vijaya Eubanks er Body Mass Index (Ratio) 35.92 kg/m2 Esther Sanders MD blood pressure, diastolic 91 mm[Hg] Yovani Gomez blood pressure, systolic 147 mm[Hg] Chelsie Gomez oxygen saturation, oximetry 96 % Sarai Gomez respiratory rate E&M 18 /min Jennifer Gomez pulse rate 83 /min Sarai chavez weight E&M 250.4 [lb_av] Sarai garciaon height E&M 70 [in_i] Sarai chavez Body Mass Index (Ratio) 39.02 kg/m2 Esther Sanders MD blood pressure, cuff size large Layla Mirza blood pressure, diastolic 90 mm[Hg] Layla Mirza blood pressure, systolic 132 mm[Hg] Hai Mirza respiratory rate E&M 16 /min Minerva Mirza oxygen saturation, oximetry 98 % Minerva Mirza pulse rate 86 /min Minerva Mirza weight E&M 272 [lb_av] Minerva Mirza height E&M 70 [in_i] Minerva Mirza blood pressure, diastolic 90 mm[Hg] Virgilio cagei Xuan blood pressure, systolic 120 mm[Hg] Sandy ri Xuan pulse rate 109 /min Vijaya Enriquetahany er oxygen saturation, oximetry 97 % Vijaya Xuan respiratory rate E&M 16 /min Vijaya G rosalinda Body Mass Index (Ratio) 35.15 kg/m2 Germain i Xuan weight E&M 245 [lb_av] Vijaya Cha er Body Mass Index (Ratio) 37.30 kg/m2 Anea artis Shalom blood pressure, diastolic 90 mm[Hg] An eatris Shalom blood pressure, systolic 128 mm[Hg] Ane atris Brown pulse rate 114 /min Aneatris Brown oxygen saturation, oximetry 96 % Aneatris Shalom respiratory rate E&M 17 /min Aneatri s Shalom weight E&M 260 [lb_av] Aneatris Shalom blood pressure, diastolic 80 mm[Hg] Me shahzad Radha blood pressure, systolic 131 mm[Hg] Teressa judie Radha pulse rate 96 /min Va Radha oxygen saturation, oximetry 97 % Va Garcia respiratory rate E&M 14 /min Va Garcia Body Mass Index (Ratio) 37.59 kg/m2 Lee Ann karolina Garcai weight E&M 262 [lb_av] Va Garcia Body Mass Index (Ratio) 36.87 kg/m2 [facility] height E&M 70 [in_i] Va Garcia blood pressure, diastolic 99 mm[Hg] Me pike Garcia blood pressure, systolic 150 mm[Hg] Teressa dimas Garcia pulse rate 116 /min Va Garcia oxygen saturation, oximetry 96 % Va Garcia respiratory rate E&M 16 /min Va Garcia weight E&M 257 [lb_av] Va Garcia ALLERGIES Allergy Name Onset Date Reaction Criticality Status NALTREXONE HCL Low Criticality activ e ZOCOR Low Criticality active RESULTS Date Observation Value Provider Reference Range Interpretation Location lipoprotein, beta, serum, point, quantitative, calculated 64 mg/dL [facility] 0-99 HDL cholesterol, serum 45 mg/dL [facility] >39 triglyceride, serum, random 141 mg/dL [facility] 0-149 cholesterol, serum 134 mg/dL [facility] 271-388 9087/01/ 04 ferritin, serum 163 ng/mL [facility] 30-400 pro brain natriuretic peptide 12 pg/mL [facility] 0-121 hemoglobin A1C, blood, as % of total hemoglobin 5.5 % [facility] 4.8-5.6 microalbumin/crea tinine ratio, urine 25.9 MG/G CREAT [facility] 0.0-30.0 microalbumin, random, urine 2.97 mg/dL [facility] Units converted. See lab report for original value. creatinine, random, urine 114.5 mg/dL [facility] Not Estab. iron saturation percent, serum 54 % [facility] 15-55 iron, serum 159 ug/dL [facility] 38-169 iron binding capacity, unsaturated 134 ug/dL [facility] 488-877 4925/01/ 04 iron binding capacity, total 293 ug/dL [facility] 641-119 5679/05/ 31 pro brain natriuretic peptide 30.4 pg/mL [facility] 0.0 - 125.0 ferritin, serum 97.9 ng/mL [facility] 30.0 - 400.0 iron, serum 238.0 ug/dL [facility] 31.0 - 144.0 High iron saturation percent, serum 68.0 % [facility] 20.0 - 50.0 High iron binding capacity, total 350.0 ug/dL [facility] 250.0 - 450.0 rapid plasma reagin antibody, serum NON-REACTI VE [facility] NON-REACTIVE hemoglobin A1C, blood, as % of total hemoglobin 6.0 % [facility] 4.0 - 5.6 High pro brain natriuretic peptide 24.7 pg/mL [facility] 0.0 - 125.0 ferritin, serum 68.1 ng/mL [facility] 30.0 - 400.0 iron, serum 94.0 ug/dL [facility] 31.0 - 144.0 iron saturation percent, serum 24.0 % [facility] 20.0 - 50.0 iron binding capacity, total 392.0 ug/dL [facility] 250.0 - 450.0 hemoglobin A1C, blood, as % of total hemoglobin 5.5 % [facility] 4.0 - 6.0 coagulation managed by Elie Vega RN international normalized ratio (INR) 0.9 Elie Vega RN Normal prothrombin time (patient) 11.2 s Elie Vega RN HISTORY OF MEDICATION USE Medication Status Instructions Dates Provider Indications Com ments bupropion HCl 100 mg tablet active Take 1 tablet by mouth twice a day 06/26 Vijaya Govea Coreg 12.5 mg tablet active Take 1 tablet by mouth twice a day 06/26 Vijaya Govea hydrochlorothiazi de 25 mg tablet active Take 1 tablet by mouth once a day 06/26 Vijaya Govea Zepbound 2.5 mg/0.5 mL pen injector active 1 pen injector subcutaneously once a week 01/22 Clare Federico VANN celecoxib 200 mg capsule active Clare Fallgllaura FOOD PROCESSING SCIENTIST naltrexone 50 mg tablet completed Take 1/2 tablet by mouth once a day 12 tab by mouth daily, if not effective after 1 week may increase to 1/2 tab twice daily 06/10 - 01/22 Clare Caballero FOOD PROCESSING SCIENTIST icosapent ethyl 1 gram capsule completed Take 2 capsule twice a day - 12/03 Bladimir Sanders MD hydrochlorothiazi de 25 mg tablet completed 1 tablet by mouth once a day - 06/26 Vijaya Govea Wegovy 0.25 mg/0.5 mL pen injector completed Inject 0.25mg subcutaneously once a week for 4 weeks, then increase to 0.5mg once a week if tolerated. 05/15 - 12/03 Jenelle León bupropion HCl 100 mg tablet completed 1 tablet by mouth twice a day 11/17 - 06/26 Vijaya Govea atorvastatin 40 mg tablet active Take 1 tablet by mouth once a day 11/17 Vijaya Govea Coreg 12.5 mg tablet completed TAKE 1 TABLET BY MOUTH TWICE DAILY 11/17 - 06/26 Vijaya Govea hydrochlorothiazi de 25 mg tablet completed 1 tablet by mouth once a day 11/17 - 12/03 Bladimir Sanders MD Feosol unspecified unspecified active Bladimir Sanders MD Humira(CF) Pen 40 mg/0.4 mL pen injector kit completed - 05/15 Bladimir Sanders MD icosapent ethyl 1 gram capsule active TAKE 2 CAPSULES TWICE A DAY 11/15 Vijaya Govea potassium alum (bulk) 100% crystals completed 10/28 - 11/17 Bladimir Sanders MD prednisone 5 mg tablet active 1 07/13 Bladimir Sanders MD #180, 90 days supply, Prescribed by HARRY DILLON, Filled 07/14/2019 folic acid 1 mg tablet active 06/19 Bladimir Sanders MD #90, 90 days supply, Prescribed by HARRY DILLON, Filled 07/14/2019 bupropion HCl 100 mg tablet completed 1 tablet twice a day 07/04 - 11/17 Bladimir Sanders MD Vascepa 1 gram capsule completed 2 capsules by mouth twice daily [place] Coupon Code: [facility]# [id number], PCN# [id number], GRP# [id number], ID# [id number] 06/05 - 11/15 Paula Sadi AV-PHOS 250 NEUTRAL [phone] MG ORAL TABLET completed 1 packet three times a day 07/04 - 11/17 Bladimir Sanders MD hydrochlorothiazi de 25 mg tablet completed 1 tablet once a day 06/12 - 11/17 Bladimir Sanders MD ADIPEX-P 37.5 MG ORAL TABLET completed one a day 06/12 - 11/29 Vijaya Govea Magnesium (oxide/AA chelate) 300 mg capsule active 100 mg once a day Sarai Gomez KRILL OIL 500 MG ORAL CAPSULE completed once daily - 07/04 Bladimir Sanders MD FE TABS 325 (65 Fe) MG TBEC completed 1 tablet once a day - 11/17 Bladimir Sanders MD Remicade 100 mg recon soln completed every 8 weeks 07/04 - 11/17 Bladimir Sanders MD TOPAMAX 50 MG ORAL TABLET completed one a day 09/26 - 11/29 Vijaya Govea ADIPEX-P 37.5 MG ORAL CAPSULE completed one a day 09/26 - 11/29 Sarai Gomez QSYMIA 7.5-46 MG ORAL CAPSULE EXTENDED RELEASE 24 HOUR completed one tablet daily 10/22 - 11/29 Vijaya Govea QSYMIA 3.75-23 MG ORAL CAPSULE EXTENDED RELEASE 24 HOUR completed one tablet daily 10/22 - 11/29 Vijaya Govea Zyrtec 10 mg capsule active 1 tablet once a day Bladimir Sanders MD OCUVITE ORAL TABS completed - 11/17 Bladimir Sanders MD FOSAMAX 70 MG ORAL TABLET completed once weekly 09/10 - 10/15 Bladimir Sanders MD aspirin 81 mg tablet,delayed release (DR/EC) active 1 tablet by mouth once a day 07/09 Bladimir Sanders MD Coreg 12.5 mg tablet completed 1 tablet twice a day 07/09 - 11/17 Bladimir Sanders MD atorvastatin 40 mg tablet completed Take 1 tablet once a day 07/09 - 11/17 Bladimir Sanders MD MULTIVITAMINS ORAL CAPSULE completed 1 tablet once a day 07/09 - 11/17 Bladimir Sanders MD ALGAL OMEGA-3 DHA CAPSULE completed once daily 07/09 - 11/29 Sarai Gomez [facility] MAGNESIUM TABLET completed once daily 07/09 - 11/29 Aneatris Brown glucosamine-chond roitin 500-400 mg capsule completed once a day 07/09 - 11/17 Bladimir Sanders MD ACTEMRA SOLUTION completed as directed 07/09 - 11/29 Vijaya Govea ACTONEL 150 MG ORAL TABLET completed once monthly 07/09 - 09/10 Va Garcia pantoprazole 40 mg tablet,delayed release (DR/EC) active once a day 07/09 Vijaya Govea methotrexate sodium 2.5 mg tablet active 6 tablet once a week 07/09 Va Garcia metaxalone 800 mg tablet completed three times a day as needed 07/09 - 11/17 Bladimir Sanders MD PREDNISONE (LALY) 10 MG ORAL TABS completed twice daily 07/09 - 10/15 Bladimir Sanders MD OXYCODONE-ACETAMI NOPHEN 5-325 MG ORAL TABLET completed four times daily as needed 07/09 - 10/15 Bladimir Sanders MD naproxen 500 mg tablet completed twice a day 07/09 - 01/22 Clare FLOODP gabapentin 300 mg capsule active Take 2 once a day 07/09 Vijaya Xuan SOCIAL HISTORY Date Observation Value Provider personal history of marijuana use no Clare Ventimiglia FOOD PROCESSING SCIENTIST drug use no Clare Ventimig matilde 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 Bladimir Sanders MD social history reviewed E&M revi ewed - no changes required Bladimir Sanders MD social history E&M S moking History: Brigette antonio has never smoked. Bladimir Sanders MD social history reviewed E&M revi ewed - no changes required Bladimir Sanders MD smoking status Never smoker Eryn Rojas social history E&M S moking History: Brigette antonio has never smoked. Bladimir Sanders MD social history reviewed E&M revi ewed - no changes required Bladimir Sanders MD smoking status Never smoker Ishanlongkal negrete smoking status Never smoker Miguel Jarrett social history E&M S moking History: Brigette antonio has never smoked. Bladimir Sanders MD social history reviewed E&M revi ewed - no changes required Bladimir Sanders MD alcohol use no Vijaya Cha lder smoking status Never smoker Vijaya chan social history E&M S moking History: Brigette antonio has never smoked. Bladimir Sanders MD social history reviewed E&M revi ewed - no changes required Bladimir Sanders MD alcohol use no Sarai chavez smoking status Never smoker Sarai Henry number of grandchildren Tontaeya Daugherty MD H thi Sanders MD social history E&M S moking History: Brigette antonio has never smoked. Bladimir Sanders MD social history reviewed E&M revi ewed - no changes required Bladimir Sanders MD alcohol use no Minerva Hermes smoking status Never smoker Minerva Mirza social history E&M S moking History: Brigette antonio has never smoked. Bladimir Sanders MD social history reviewed E&M revi ewed - no changes required Bladimir Sanders MD alcohol use no Vijaya Cha logan smoking status Never smoker Vijaya Deion chan social history reviewed E&M revi ewed - no changes required Bladimir Sanders MD smoking status Never smoker Pedro jacobs social history reviewed E&M revi ewed - no changes required Bladimir Sanders MD smoking status Never smoker Va jacobs social history reviewed E&M revi ewed - no changes required Bladimir Sanders MD smoking status Never smoker Va jacobs FUNCTIONAL STATUS Date Observation Value Provider HRA, CV Assess/Plan, Angina (inactive) Management Plan continue current therapy Clare Caballero FOOD PROCESSING SCIENTIST HRA, CV Assess/Plan, Angina (inactive) Management Plan continue current therapy Bladimir Sanders MD HRA, CV Assess/Plan, Angina (inactive) Management Plan continue current therapy Bladimir Sanders MD HRA, CV Assess/Plan, Angina (inactive) Management Plan continue current therapy Bladimir Sanders MD HRA, CV Assess/Plan, Angina (inactive) Management Plan continue current therapy Bladimir Sanders MD HRA, CV Assess/Plan, Angina (inactive) Management Plan continue current therapy Bladimir Sanders MD HRA, CV Assess/Plan, Angina (inactive) Management Plan continue current therapy Bladimir Sanders MD HRA, CV Assess/Plan, Angina (inactive) Management Plan continue current therapy Bladimir Sanders MD HRA, CV Assess/Plan, Angina (inactive) Management Plan continue current therapy Bladimir Sanders MD FAMILY HISTORY Family Member Condition Father Negative FH of Coron nancy Artery Disease INSURANCE PROVIDERS Payer name Policy type / Coverage type Mouna red green [place] [id number] RICARDO SCHWARTZ [employer] LOAR [id number] ADVANCE DIRECTIVES Name Date DISCUSSED - NO DECISION MADE TREATMENT PLAN Date Name Performer [id number],S, t ried diet topamz adn adepix in past, did not want wellbuona Bladimir Sanders MD [id number],S, Bladimir bowden MD [id number],S, s evere T he patient is using CPAP on a regular basis. The patient has been benefiting from therapy and should continue use. Bladimir Sanders MD [id number],S, n eg rpr and b`12 Bladimir Sanders MD [id number],S, Bladimir bowden MD [id number],S, Bladimir bowden MD [id number],S, p ft nromal, nml uacr, ml a1 ,neg arvin V IT d OK Bladimir Sanders MD [id number],S, H is updated medication list for this problem includes: Coreg 12.5 Mg Tablet (Carvedilol) ..... Take 1 tablet by mouth twice daily Hydrochlorothiazide 25 Mg Tablet (Hydrochlorothiazide) ..... 1 tablet by mouth once a day Aspirin 81 Mg Tablet,delayed Release (dr/ec) (Aspirin) ..... 1 tablet by mouth once a day BP today: 106/69 P rior BP: 125/77 (11/17/2021) Bladimir Sanders MD [id number],S, p ro 20 Bladimir Sanders MD [id number],S, n uc 18 neg, rca 20% 2014, cor score 338 Bladimir Sanders MD [id number],B, i alireza minerced, had colon, b12 and folate ok Bladimir Sanders MD [id number],S, Bladimir Jacobs kal LINDER [id number],S, Bladimir Serot a [id number],S, t ried diet topamz adn adepix in past, did not want wellbuona Bladimir Sanders MD [id number],S, p ft nromal, nml uacr, ml a1 ,neg arvin V IT d OK Bladimir Sanders MD [id number],BEstherey Arlene bowden MD [id number],S, Bladimir Serot a [id number],S, Bladimir Serot a [id number],B, Bladimir Serot a [id number],C, H is updated medication list for this problem includes: Hydrochlorothiazide 25 Mg Oral Tablet (Hydrochlorothiazide) ..... One tab daily Aspirin Adult Low Dose 81 Mg Oral Tablet Delayed Release (Aspirin) ..... One tab by mouth daily Coreg 12.5 Mg Oral Tablet (Carvedilol) ..... One tab. twice daily BP today: 125/77 P rior BP: 114/70 (10/28/2020) Bladimir Sanders MD [id number],S, p ro 20 Bladimir Sanders MD [id number],B, i alireza correced, had colon, b12 and folate ok Bladimir Sanders MD [id number],S, n uc 18 neg, rca 20% 2014, cor score 338 Bladimir Sanders MD [id number],C,n uc 18 neg, rca 20% 2015, cor score 338 Bladimir Sanders MD [id number],S, t ried diet topamz adn adepix in past, did not want wellbuona Bladimir Sanders MD [id number],B, Bladimir bowden MD [id number],B, Bladimir bowden MD [id number],S, H is updated medication list for this problem includes: Hydrochlorothiazide 25 Mg Oral Tablet (Hydrochlorothiazide) ..... One tab daily Aspirin Adult Low Dose 81 Mg Oral Tablet Delayed Release (Aspirin) ..... One tab by mouth daily Coreg 12.5 Mg Oral Tablet (Carvedilol) ..... One tab. twice daily BP today: 114/70 P rior BP: 136/77 (10/16/2019) Bladimir Sanders MD [id number],S, p ro 20 Bladimir Sanders MD [id number],S, p ft nromal, nml uacr, ml a1 and probnp,neg arvin B 12 FOLATRE AND VIT d OK Bladimir Sanders MD [id number],S, s evere T he patient is using CPAP on a regular basis. The patient has been benefiting from therapy and should continue use. Bladimir Sanders MD [id number],SBladimir MD [id number],SBladimir MD [id number],S, n uc 18 neg, 20% rca 15 Bladimir Sanders MD [id number],SBladimir MD [id number],B, i alireza correced, had colon, b12 and folate ok Bladimir Sanders MD Cardiology:continued weight loss c ould not tolerate naltrexone d/t GI upset W ill try GLP-1 Clare Ventimiglia FOOD PROCESSING SCIENTIST Cardiology:remains m ild E F of 55% [facility] Cardiology:LDL 64 on last labs c rohith statin H is updated medication list for this problem includes: Icosapent Ethyl 1 Gram Capsule (Icosapent ethyl) ..... Take 2 capsules twice a day Atorvastatin 40 Mg Tablet (Atorvastatin) ..... Take 1 tablet by mouth once a day [facility] Cardiology:trig 141 on last labs R emains on vacepa H is updated medication list for this problem includes: Icosapent Ethyl 1 Gram Capsule (Icosapent ethyl) ..... Take 2 capsules twice a day Atorvastatin 40 Mg Tablet (Atorvastatin) ..... Take 1 tablet by mouth once a day [facility] Cardiology:EF 55% on last echo n o new symptoms [facility] Cardiology:BP 132/78 today in office c rohith present meds His updated medication list for this problem includes: Hydrochlorothiazide 25 Mg Tablet (Hydrochlorothiazide) ..... 1 tablet by mouth once a day Coreg 12.5 Mg Tablet (Carvedilol) ..... Take 1 tablet by mouth twice daily Aspirin 81 Mg Tablet,delayed Release (dr/ec) (Aspirin) ..... 1 tablet by mouth once a day [facility] :pro 20 ef 54 Bladimir Sanders MD Cardiology:neg egfr p ft nromal, nml uacr, ml a1 ,neg arvin V IT d OK n eg hep ppanle Bladimir Sanders MD Cardiology: n eg rpr and b`12 Bladimir Sanders MD Cardiology: p ro 20 Bladimir Sanders MD Cardiology: i alireza nelson, had colon, b12 and folate ok Bladimir Sanders MD Cardiology Bladimir Sanders MD Cardiology Bladimir Sanders MD Cardiology Bladimir Sanders MD Cardiology Bladimir Sanders MD Cardiology:neg egfr p ft nromal, nml uacr, ml a1 ,neg arvin V IT d OK Bladimir Sanders MD Cardiology Bladimir Sanders MD Cardiology:The patie nt is using CPAP on a regular basis. The patient has been benefiting from therapy and should continue use. Bladimir Sanders MD Cardiology:neg pet 2 4 n uc 18 neg, rca 20% 2014, cor score 338 Bladimir Sanders MD Cardiology Bladimir Sanders MD Cardiology: t ried diet topamz adn adepix in past, did not want wellbuona Bladimir Sanders MD Cardiology Bladimir Sanders MD Cardiology: s anyie T he patient is using CPAP on a regular basis. The patient has been benefiting from therapy and should continue use. Bladimir Sanders MD Cardiology: n eg rpr and b`12 Bladimir Sanders MD Cardiology Bladimir Sanders MD Cardiology Bladimir Sanders MD Cardiology: p ft nromal, nml uacr, ml a1 ,neg arvin V IT d OK Bladimir Sanders MD Cardiology: H is updated medication list for this problem includes: Coreg 12.5 Mg Tablet (Carvedilol) ..... Take 1 tablet by mouth twice daily Hydrochlorothiazide 25 Mg Tablet (Hydrochlorothiazide) ..... 1 tablet by mouth once a day Aspirin 81 Mg Tablet,delayed Release (dr/ec) (Aspirin) ..... 1 tablet by mouth once a day BP today: 106/69 P rior BP: 125/77 (11/17/2021) Bladimir Sanders MD Cardiology: p ro 20 Bladimir Sanders MD Cardiology: n uc 18 neg, rca 20% 2014, cor score 338 Bladimir Sanders MD Cardiology: tae lay leslie, had colon, b12 and folate ok Bladimir Sanders MD Cardiology Bladimir Sanders MD Cardiology Bladimir Sanders MD Cardiology: t ried diet cedric adn adepix in past, did not want welltriston Sanders MD Cardiology: p ft nromal, nml uacr, ml a1 ,neg arvin V IT d OK Bladimir Sanders MD Cardiology Bladimir Sanders MD Cardiology Bladimir Sanders MD Cardiology Bladimir Sanders MD Cardiology Bladimir Sanders MD Cardiology: H is updated medication list for this problem includes: Hydrochlorothiazide 25 Mg Oral Tablet (Hydrochlorothiazide) ..... One tab daily Aspirin Adult Low Dose 81 Mg Oral Tablet Delayed Release (Aspirin) ..... One tab by mouth daily Coreg 12.5 Mg Oral Tablet (Carvedilol) ..... One tab. twice daily BP today: 125/77 P rior BP: 114/70 (10/28/2020) Bladimir Sanders MD Cardiology: p ro 20 Bladimir Sanders MD Cardiology: i alireza correced, had colon, b12 and folate vic Sanders MD Cardiology: n uc 18 neg, rca 20% 2014, cor score 338 Bladimir Sanders MD :nuc 18 neg, rca 20% 2014, cor s core 338 Bladimir Sanders MD Cardiology: t ried diet yvonnefani jurgenn adepix in past, did not want welltriston Sanders MD Cardiology Bladimir Sanders MD Cardiology Bladimir Sanders MD Cardiology: H is updated medication list for this problem includes: Hydrochlorothiazide 25 Mg Oral Tablet (Hydrochlorothiazide) ..... One tab daily Aspirin Adult Low Dose 81 Mg Oral Tablet Delayed Release (Aspirin) ..... One tab by mouth daily Coreg 12.5 Mg Oral Tablet (Carvedilol) ..... One tab. twice daily BP today: 114/70 P rior BP: 136/77 (10/16/2019) Bladimir Sanders MD Cardiology: p ro 20 Bladimir Sanders MD Cardiology: p ft nromal, nml uacr, ml a1 and probnp,neg arvin B 12 FOLATRE AND VIT d OK Bladimir Sanders MD Cardiology: s chas T he patient is using CPAP on a regular basis. The patient has been benefiting from therapy and should continue use. Bladimir Sanders MD Cardiology Bladimir Sanders MD Cardiology Bladimir Sanders MD Cardiology: n uc 18 neg, 20% rca 15 Bladimir Sanders MD Cardiology Bladimir Sanders MD Cardiology: i alireza correced, had colon, b12 and folate ok Bladimir Sanders MD Cardiology:Repeat li pids H is updated medication list for this problem includes: Vascepa 1 Gm Oral Capsule (Icosapent ethyl) ..... 2 capsules by mouth twice daily universal coupon code: bin# [id number], pcn# [email or web address], grp# [email or web address], id# [id number] Atorvastatin Calcium 40 Mg Oral Tablet (Atorvastatin calcium) ..... Take one tab daily Josefa Nolasco NP Cardiology:Stable H is updated medication list for this problem includes: Hydrochlorothiazide 25 Mg Oral Tablet (Hydrochlorothiazide) ..... One tab daily Aspirin Adult Low Dose 81 Mg Oral Tablet Delayed Release (Aspirin) ..... One tab by mouth daily Coreg 12.5 Mg Oral Tablet (Carvedilol) ..... One tab. twice daily Josefa Nolasco NP Cardiology:Repeat echo Josefa claros NP Cardiology:Repeat echo Josefa claros NP Cardiology Follow up Bladimir kohler MD Cardiology Follow up : H is updated medication list for this problem includes: Atorvastatin Calcium 40 Mg Oral Tablet (Atorvastatin calcium) ..... Take one tab daily Bladimir Sanders MD Cardiology Follow up : H is updated medication list for this problem includes: Atorvastatin Calcium 40 Mg Oral Tablet (Atorvastatin calcium) ..... Take one tab daily Bladimir Sanders MD Cardiology Follow up : s chas T he patient is using CPAP on a regular basis. The patient has been benefiting from therapy and should continue use. Bladimir Sanders MD Cardiology Follow up :tried diet topamz adn adepix in past, did not want wellbuona Bladimir Sanders MD Cardiology Follow up : i alireza nelson, had colon, b12 and folate ok Bladimir Sanders MD Cardiology Follow up :pft nromal, nml uacr, ml a1 and probnp,neg arvin B 12 FOLATRE AND VIT d OK Bladimir Sanders MD Cardiology Follow up : H is updated medication list for this problem includes: Hydrochlorothiazide 25 Mg Oral Tablet (Hydrochlorothiazide) ..... One tab daily Aspirin Adult Low Dose 81 Mg Oral Tablet Delayed Release (Aspirin) ..... One tab by mouth daily Coreg 12.5 Mg Oral Tablet (Carvedilol) ..... One tab. twice daily BP today: 116/80 P rior BP: 147/91 (04/11/2017) Bladimir Sanders MD Cardiology Follow up : n ml pro Bladimir Sanders MD Cardiology Follow up :nuc 18 neg , 20% rca 15 Bladimir Sanders MD Cardiology:will add dirutic Esther Sanders MD Cardiology:neuc next year Bladimir Sanders MD Cardiology:will get back on adke px Bladimir Sanders MD Cardiology: m ay need iv irohn, b12 and folate ok Bladimir Sanders MD Cardiology: H is updated medication list for this problem includes: Atorvastatin Calcium 40 Mg Oral Tablet (Atorvastatin calcium) ..... Take one tab daily Bladimir Sanders MD Cardiology:nml pro Bladimir Sanders MD Cardiology:neg rpr and b`12 Esther Sanders MD Cardiology Bladimir Sanders MD Cardiology:4.2 by echo [address] Bladimir Sanders MD Cardiology:4.2 Bladimir Sanders MD Cardiology:severe T he patient is using CPAP on a regular basis. The patient has been benefiting from therapy and should continue use. Bladimir Sanders MD Cardiology Follow up:nml b12 Hayden Sanders MD Cardiology Follow up:many sw leanna l eason Bladimir Sanders MD Cardiology Follow up:nml pro Hayden Sanders MD Cardiology Follow up :DID NOT WANT WT LOSS SUREGDYE, will try diet pills Bladimir Sanders MD Cardiology Follow up :may need iv irohn, b12 and folate ok Bladimir Sanders MD Cardiology Follow up : B 12 FOLATRE AND VIT d OK Bladimir Sanders MD Cardiology Follow up:down to 5.5 from to 5.7 Bladimir Sanders MD Cardiology Follow up:pos nuc 15, wth 20% rca Bladimir Sanders MD Cardiology Follow up:mild 4.4,wi ll image Bladimir Sanders MD Cardiology Follow up : H is updated medication list for this problem includes: Aspirin 81 Mg Tabs (Aspirin) ..... One tab. daily Coreg 12.5 Mg Tabs (Carvedilol) ..... One tab. twice daily BP today: 120/90 P rior BP: 128/90 (10/22/2014) Bladimir Sanders MD Cardiology Follow up :due for eh co Bladimir Sanders MD Cardiology Follow up :high will try crestor H is updated medication list for this problem includes: Crestor 20 Mg Tabs (Rosuvastatin calcium) ..... One tab. daily Bladimir Sanders MD Cardiology Follow up :nml b12 an d folate Bladimir Sanders MD Cardiology Follow up :5.7 Bladimir Sanders MD Cardiology Follow up :B12 FOLATR E AND VIT OK Bladimir Sanders MD Cardiology Follow up : H is updated medication list for this problem includes: Aspirin 81 Mg Tabs (Aspirin) ..... One tab. daily Coreg 12.5 Mg Tabs (Carvedilol) ..... One tab. twice daily Bladimir Sanders MD follow up [facility], FIRST, NO RENALS NEEDED: H is updated medication list for this problem includes: Aspirin 81 Mg Tabs (Aspirin) ..... One tab. daily Coreg 12.5 Mg Tabs (Carvedilol) ..... One tab. twice daily Orders: I NR Strip (CPT-27463) Bladimir Sanders MD New Patient: O rders: H olter Monitor 24 Hr (CPT-74731) C omplete Echo (CPT-44086) S TR - Adenosine (44089) Bladimir Sanders MD New Patient: O rders: H olter Monitor 24 Hr (CPT-04260) C omplete Echo (CPT-60926) S TR - Adenosine (67162) F ull PFT (*) Bladimir Sanders MD New Patient: H is updated medication list for this problem includes: Aspirin 81 Mg Tabs (Aspirin) ..... One tab. daily Coreg 12.5 Mg Tabs (Carvedilol) ..... One tab. twice daily Bladimir Sanders MD Date Name Complete Echo Lipoprotein (a) LIPID PANEL Complete Echo RPM (remote patient monitoring) Sleep Study - split night Stress Cardiac PET-C T RPM (remote patient monitoring) CT, Coronary Calcium Score BASIC METABOLIC PANE L W/EGFR IRON AND TOTAL IRON BINDING CAPACITY FERRITIN LIPID PANEL CT, Coronary Calcium Score BASIC METABOLIC PANE L W/EGFR CT, Coronary Calcium Score FERRITIN URINALYSIS, RANDOM, MICROALB/CREATININE HEMOGLOBIN A1c PROBNP, N TERMINAL Renal Artery Duplex STR - Adenosine IRON AND TOTAL IRON BINDING CAPACITY DLCO - 90179 FRC - 40254 FVC - 66026 Complete Echo ZIO Holter Sleep Study Home HEMOGLOBIN A1c PROBNP, N TERMINAL DLCO - 36328 FRC - 91845 FVC - 78046 RPR (MONITOR) W/REFL TITER IRON AND TOTAL IRON BINDING CAPACITY FERRITIN CT Angio, chest Complete Echo IRON AND TOTAL IRON BINDING CAPACITY FERRITIN HEMOGLOBIN A1c PROBNP, N TERMINAL Complete Echo IRON AND TOTAL IRON BINDING CAPACITY VITAMIN D, 25-HYDROX Y, LC/MS/MS FOLATE, SERUM VITAMIN B12 HEMOGLOBIN A1c Carotid Duplex Bilat eral Cardiac Cath - L/R - WCHA Arterial Duplex Bi-L ower EX INR Strip DLCO Order - [id number] FRC Order - 31419 FVC Order - 23802 Full PFT STR - Adenosine Complete Echo Holter Monitor 24 Hr HISTORY OF PROCEDURES Procedure Date Procedure Name Provider Procedure Notes S tatus Complex e/m visit add on Bladimir Sanders MD completed EKG Bladimir Sanders MD complete d CT- Coronary CA score Bladimir Sanders MD completed EKG Bladimir Sanders MD complete d Regadenoson, 4 units Bladimir Sanders MD completed Cardiolite, 2 units Bladimir Sanders MD completed SPECT Images Stanislav Daugherty MD complet ed Stress EKG Sriram Lee MD complete d FVC / MVV - 83831 Bladimir Sanders MD c ompleted FRC - 04297 Bladimir Sanders MD complet ed SpO2 w/o 6min walk/titration Bladimir Sanders MD completed DLCO - 24086 Bladimir Sanders MD comple loli EKG Bladimir Sanders MD complete d SNOMED-CT: 281855489 401767 Current Medications Documented Bladimir Sanders MD completed FVC / MVV with bronchodilator - 97576 Bladimir Sanders MD completed BLOOD COUNT HEMOGLOBIN Bladimir Sanders MD completed FRC - 20167 Bladimir Sanders MD complet ed SpO2 - 07110 Bladimir Sanders MD comple loli DLCO - 66114 Bladimir Sanders MD comple loli GABBY Sanders MD c ompleted SNOMED-CT: 599531292 103837 Current Medications Documented Bladimir Sanders MD completed EKG Bladimir Sanders MD complete d SNOMED-CT: 698866634 904815 Current Medications Documented Bladimir Sanders MD completed EKG Bladimir Sanders MD complete d BLOOD COUNT HEMOGLOBIN Bladimir Sanders MD completed EKG Bladimir Sanders MD complete d
--- OUTSIDE RECORDS SUMMARY | 2024-05-03 04:20 | XMS_ITS | Patient Health Record ---
Author Organization [employer] [facility] Address [address] [facility] [place] [address] Care Team Providers Care Senior Database Programmer Name Role Phone NO PCP, NONE Primary Care Provider Unavailabl e ALLERGIES Allergen (clinical drug ingredient) Drug/Non Drug Allergy documented on EMR Reaction Allergy Type Onset Date Status hydroxychloroquine Plaquenil Unknown Drug Allergy Active Tuberculin PPD Unknown Drug Allergy Ac tive REASON FOR REFERRAL No Information MEDICATIONS Medication SIG (Take, Route, Frequency, Duration) Notes Start Date End Date Status Gabapentin Active Percocet Active Ferrous Sulfate Acti ve Carvedilol Active hydroCHLOROthiazide Active Glucosamine Active Alendronate Sodium A ctive Baby Aspirin Active BuPROPion HBr Active Atorvastatin Calcium Active Prednisone Active Pantoprazole Sodium Active Vascepa Active Remicade Active Methotrexate Active Magnesium Active oxyCODONE-Acetaminophen 5-32 5 MG 1 tablet as needed Orally every 6 hrs Active Naproxen Active SOCIAL HISTORY Tobacco Use: Social History Observation Description Date Details (start date - stop date) Never Smoker NA - NA Sex Assigned At : Social History Observation Description Sex Assigned At Unknown Tobacco Use/Smoking Question Answer Notes Are you a nonsmoker * PLAN OF TREATMENT No Information Insurance Providers Payer Name Payer Address Payer Phone Subscriber Number Group Number Insured Name Patient Relationship to Insured Coverage Start Date Coverage End Date [place] [address] [place] [phone] [id number] Chalino Deng Self - patient is the insured [facility]- [address] [place] [address] [phone] [id number] Chalino Deng Self - patient is the insured MEDICAL (GENERAL) HISTORY Medical History History ICD Code History of : High blood pressure* rheumatoid arthritis Surgical History Surgery Date(Month/Year) cataract removal Hospitalization History Reason Date(Month/Year) See Surgical History
--- OUTSIDE RECORDS SUMMARY | 2024-05-03 04:20 | XMS_ITS | Continuity of Care Document ---
Author Organization [facility] Address [address] [place] [address] [place] [address] Phone Care Team Providers Care Director Of Human Resources Name Role Phone Lupis Pena Unavailable Unavailable Procedures Procedure Date Visual Field Examination(s) Eye Exam & Treatment Visual Field Examination(s) Office/outpatient Visit, Est Visual Field Examination(s) Eye Exam & Treatment Refraction Advance Directives Directive Yes / No Effective Date File Name No Information Encounters Encounter Description Practice Location Reason(s) For Visit Diagnoses Date Provider Providers Copied on Encounter [facility], [address] [place] [address] [address], [place], [place], [id number], tel:[phone] [facility] No Information Jun- 0 Becky Baugh. [address] , [address], [place], [address], [place]. tel:[phone] Referring Provider: uLpis Palafox, [address], [place], [place], [facility]. tel:[phone] [facility], [address] [place] [address] [address], [place], [place], [id number], tel:[phone] [facility] No Information Jun- 9-201 0 Becky Baugh. [address] , [address], [place], [address], [place]. tel:[phone] [facility], [address] [place] [address] [address], [place], [place], [id number], tel:[phone] [facility] No Information b-0 8-201 0 Becky Baugh. [address] , [address], [place], [place], [facility], . tel:[phone] Referring Provider: Lupis Palafox, [address], [place], [facility]. tel:[phone] Office/outpat ient Visit, [facility], [address] [place] [address] [address], [place], [place], [id number], tel:[phone] [facility] No Information 9 Becky Hoff [address] , [address], [place], [place], [facility], . tel:[phone] [facility], [address] [place] [address] [address], [place], [place], [id number], tel:[phone] [facility] No Information Mar-0 2-200 8 Becky Baugh. [address] [facility] [address] , [address], [place], [place], [facility], . tel:[phone] Referring Provider: Lupis Palafox, [address], [place], [facility]. tel:[phone] [facility], [address] [place] [address] [address], [place], [place], [id number], tel:[phone] [facility] No Information 200 8 Becky Baugh. [address] [facility] , [address], [place], [place], [facility], . tel:[phone] Family History Family Member Type Diagnosis Age [...]
--- OUTSIDE RECORDS SUMMARY | 2024-05-03 08:52 | XMS_ITS | Clinical Summary ---
Author Organization [facility] Address [address] [place] [address] Care Team Providers Care Sourcing Manager Name Role Phone Isidro Heredia MD Unavailable Tomas Hyman MD Primary Care Provider [phone] Source Comments [facility],non-owned Affiliates and Associated Physician Practices is amultiple site organization consisting of ambulatory clinics and hospital sitesin [place], [place], [place] and [place]. This disclosure is being madepursuant to the Care Everywhere program and may not contain all information available regarding this patient. Last updated 18.[facility] Allergies Active Allergy Reactions Criticality Noted Date [...] medication agreement signed 11/06/2012 Overview (11/06/2012): In social media specialist dated 10/14/12 Chronic pain syndrome 12/11/2011 Subacromial bursitis 09/04/2011 Anemia 08/30/2009 Osteopenia 08/24/2008 Overview (09/14/2014): Start date 08/13/2007 CT Bone Densitometry GERD (gastroesophageal reflux disease) 9 [facility]oid [facility] with negative rheumatoid factor 07/21/2008 Overview (03/07/2015): Dx start date 06/2004, Remicade 10/2004-08/02/2005 inadequate response, Orencia 09/13/2005-11/22/2005 inadequate response, Rituxan 12/06/2005-05/01/2006, Humira 08/13/2006, Methotrexate 08/2004- 02/08/2013 , Xray hands 2004 - shows scattered tiny erosions in MCP joints. Encounters Date Type Department Care Team Description 04/04/2024 9:45 AM STAVE INSPECTOR - 04/04/2024 11:59 PM STAVE INSPECTOR Hospital Encounter [facility] [address] [place] [phone] Gloria Smtih MD Rheumatology Discharge Disposition: Home or Self Care 02/16/2024 Refill [facility] [address] [place] [address] [phone] Gloria Smith MD MEDICATION REFILL 02/08/2024 11:40 AM CDT Office Visit [facility] [address] [place] [address] [phone] Gloria Smith MD Rheumatoid arthritis of multiple sites with negative rheumatoid factor (HCC) (Primary Dx) from Last 3 Months Immunizations Name Administration Dates Next Due [employer] primary monoval ent 12+ yr 0.3mL Purple [...] Comments Blood Pressure 144/83 04/04/2024 10:23 AM STAVE INSPECTOR Pulse 82 04/04/2024 10:23 AM STAVE INSPECTOR Temperature 36.8 ??C (98.2 ??F) 04/04/2024 1 0:23 AM STAVE INSPECTOR Respiratory Rate 16 09/18/2023 3:34 PM CDT Oxygen Saturation 100% 01/30/2023 10: 56 AM CDT Inhaled Oxygen Concentration - - Weight 106.4 kg (234 lb 9.6 oz) 024 10:23 AM STAVE INSPECTOR Height 177.8 cm (5' 10 ) 02/08/2024 11: 48 AM CDT Body Mass Index 33.66 02/08/2024 11:48 AM CDT Plan of Treatment Upcoming Encounters Date Type Department Care Team (Late st Contact Info) Description 06/03/2024 1:00 PM STAVE INSPECTOR Appointment [facility] - Rheumatology [address] [place] [address] [phone] 06/03/2024 2:00 PM STAVE INSPECTOR Office Visit [facility] - Rheumatology [address] [place] [phone] Gloria Smith MD [address] [place] [address] [phone] Health Maintenance Due Date Last Done Comments [...] 6:08 PM CDT Performed at: ?? - [place] [address] [address] [place], [place] ??[id number] Water Softener Servicer And Installer: Sanchez [facility], Phone: ??[phone] Gloria Smith MD LAB - CHEMISTRY MARII ARAUJO [facility] INSURANCE BILL [address] [place] [address] * HEPATITIS SCREEN ACUTE ([facility]) (02/10/2022 9:46 [...] Comment Lab Testing performed at: [place] [address] [address] ?? [place] [id number] Gloria Smith MD LAB - CHEMISTRY MARII Laura Organization Address City/State/ZIP Co de Phone Number [facility] INSURANCE BILL [address] [place] [address] from Last 3 Months or Most Recently Relevant to Health Maintenance Care Teams Sourcing Manager Relationship Specialty Start Date End Date Tomas Hyman MD [address] [place] [address] PCP - General Family Medicine 09/05/18 Isidro Heredia MD Rheumatology 02/09/11
--- OUTSIDE RECORDS SUMMARY | 2024-05-03 08:52 | XMS_ITS | CONTINUITY OF CARE DOCUMENT ---
Author Name maddison washburn Address Unknown Organization [facility] Address [address] [facility] [address] [place] [address] Phone [phone] Care Team Providers Care Combine Driver Name Role Phone Tommy LINDER, Bladimir Unavailable [phone] BRENT WALTER MD Unavailable BRENT WALTER MD Unavailable PROBLEMS Condition Status Date Provider Notes Exposure to SARS-associated coronavirus;neg igg and had vaccine active Bladimir Sanders MD Hypokalemia completed - Bladimir Sanders MD Mitral insufficiency, mild active Bladimir viera MD Dyspnea on exertion completed - Bladimir Sanders MD Asthma completed - Bladimir Sanders MD Adenomatous colonic polyp active Bladimir ojeda MD Sleep apnea active Bladimir Sanders MD Nerve pain active Bladimir Sanders MD PREDIABETES completed - Bladimir Snaders MD Screening active Bladimir Sanders MD CAD;neg carotid duplex active Bladimir Sanders MD prefereds no x 2.5,neg pet 24 Anemia, iron deficiency active Bladimir bowden MD r/o PVD;neg arvin completed - Bladimir Sanders MD COPD;DUE TO RA?, neg cxr, neg rhc 15 completed - Bladimir Sanders MD Mitral regurgitation, mild completed 09/10 - Bladimir Sanders MD Diastolic dysfunction active Bladimir Sanders MD Aortic root dilatation completed 4 - Bladimir Sanders MD Shortness of breath completed - Bladimir Sanders MD r/o Ischemia;ABNL NUC 15, 20% rca 15 completed - Bladimir Sanders MD HTN essential;neg duplex active Bladimir kohler MD Sinus tachycardia;nml tsh, due to pain, active Bladimir Sanders MD BACK PAIN;sciatica sees scodary, on med rx active Bladimir Sanders MD Diverticulosis, colon active Bladimir Sanders MD Hypertriglyceridemia active Vijaya Eubanks lder Hyperlipidemia;NEG CRP and neg lpa active Bladimir Sanders MD Rheumatoid arthritis active Bladimir Gomez Obesity active Clare Ventimig matilde DATA CENTER MANAGER wegoby not covered ENCOUNTERS Date Type Provider Location Encounter Diag nosis - In-person encounter Office Visit Bladimir Sanders MD [facility] Obesity - In-person encounter Office Visit Bladimir Sanders MD [facility] Obesity - In-person encounter Office Visit Bladimir Sanders MD [facility] Obesity - In-person encounter Office Visit Bladimir Sanders MD [facility] CAD;neg carotid duplex - In-person encounter Office Visit Bladimir Sanders MD [place] [facility] HypokalemiaExposure to SARS-associated coronavirus;neg igg and had vaccine - In-person encounter Office Visit Bladimir Sanders MD [place] [facility] Exposure to SARS-associated coronavirus;neg igg and had vaccine - In-person encounter Office Visit Bladimir Sanders MD [facility] [facility] HTN essential;neg duplexAortic root dilatationr/o PVD;neg abiScreeningPREDIABETESAsthmaDyspnea on exertionMitral insufficiency, mild - In-person encounter Office Visit Bladimir Sanders MD [facility] COPD;DUE TO RA?, neg cxr, neg rhc 15Anemia, iron deficiencySleep apnea - In-person encounter Office Visit Bladimir Sanders MD [place] [facility] Obesityr/o Ischemia;ABNL NUC 15, 20% rca 15Aortic root dilatationDiastolic dysfunctionAnemia, iron deficiencyNerve painSleep apneaAdenomatous colonic polyp - In-person encounter Office Visit Bladimir Sanders MD [place] [facility] ObesityScreening - In-person encounter Office Visit Bladimir Sanders MD [place] [facility] ObesitySinus tachycardia;nml tsh, due to pain,Aortic root dilatationMitral regurgitation, mildAnemia, iron deficiencyCAD;neg carotid duplex - In-person encounter Office Visit Bladimir Sanders MD [place] [facility] Hyperlipidemia;NEG CRP and neg lpaBACK PAIN;sciatica sees scodary, on med rxSinus tachycardia;nml tsh, due to pain,HTN essential;neg duplexr/o Ischemia;ABNL NUC 15, 20% rca 15Shortness of breathAortic root dilatationDiastolic dysfunctionMitral regurgitation, mildCOPD;DUE TO RA?, neg cxr, neg rhc 15r/o PVD;neg arvin - In-person encounter Office Visit Bladimir Sanders MD [place] [facility] ObesityRheumatoid arthritisHyperlipidemia;NEG CRP and neg lpaHypertriglyceridemiaDiverticulosis, [...] blood pressure, systolic 132 mm[Hg] Tab moises Harriman respiratory rate E&M 12 /min Jenelle León height E&M 70 [in_i] Jenelle León Body Mass Index (Ratio) 31.99 kg/m2 Esther Sanders MD oxygen saturation, oximetry 99 % Jenelle Harriman blood pressure, cuff size regular Jaovn witt Harriman blood pressure, diastolic 90 mm[Hg] Javon witt Harriman blood pressure, systolic 142 mm[Hg] Tab moises Harriman pulse rate 89 /min Jenelle Harriman weight E&M 223 [lb_av] Jenelle Harriman respiratory rate E&M 12 /min Jenelle León height E&M 70 [in_i] Jenelle Harriman Body Mass Index (Ratio) 29.12 kg/m2 Esther [...] Eryn Van weight E&M 214.0 [lb_av] Eryn [place] height E&M 70 [in_i] Eryn Van Body [...] Index (Ratio) 37.59 kg/m2 Lee Ann karolina Garcia weight E&M 262 [lb_av] Va Garcia Body Mass Index (Ratio) 36.87 kg/m2 [facility] E&M 70 [in_i] Va Garcia blood [...] LinkLogic 0-149 cholesterol, serum 134 mg/dL [employer] [phone]/01/ 04 ferritin, serum 163 ng/mL [employer] 30-400 [...] iron binding capacity, unsaturated 134 ug/dL [employer] [phone]/01/ 04 iron binding capacity, total 293 ug/dL [employer] [phone]/05/ 31 pro brain natriuretic peptide 30.4 pg/mL [...] tablet by mouth once a day 06/26 Vijyaa Govea Zepbound 2.5 mg/0.5 mL pen injector active 1 pen injector subcutaneously once a week 01/22 Clare Federico VANN celecoxib 200 mg capsule active Clare Fallgllaura DATA CENTER MANAGER naltrexone 50 mg tablet completed Take 1/2 tablet by mouth once a day 12 tab by mouth daily, if not effective after 1 week may increase to 1/2 tab twice daily 06/10 - 01/22 Clare Caballero DATA CENTER MANAGER icosapent ethyl 1 gram capsule completed Take [...] completed 2 capsules by mouth twice daily [place] Coupon Code: [facility]# [id number], PCN# [id number], GRP# [id number], ID# [id number] 06/05 - 11/15 Paula Sadi AV-PHOS 250 [...] completed once daily 07/09 - 11/29 Sarai Gomze [facility] MAGNESIUM TABLET completed once daily 07/09 [...] history of marijuana use no Clare Ventimiglia DATA CENTER MANAGER drug use no Clare Ventimig matilde DATA CENTER MANAGER alcohol use no Clare Ventimig matilde [facility] smoking status Never smoker Clare Ventim iglia DATA CENTER MANAGER alcohol use no Bladimir Gomez smoking status [...] Management Plan continue current therapy Clare Caballero DATA CENTER MANAGER HRA, CV Assess/Plan, Angina (inactive) Management Plan [...] Policy type / Coverage type Mouna red democrat [place] MEDIC[place] PART B Medicare [id number] RICARDO [employer] [facility] [id number] ADVANCE DIRECTIVES Name Date DISCUSSED - NO DECISION MADE TREATMENT PLAN Date Name Performer [id number],S, t ried diet topamz adn adepix in past, did not want wellbuona Bladimir Sanders MD [id number],S, Bladimir bowden MD [id number],S, s evere T he patient is using CPAP on a regular basis. The patient has been benefiting from therapy and should continue use. Bladimir Sanders MD [id number],S, n eg rpr and b`12 Bladimir Sanders MD [id number],S, Bladimir bowden MD [id number],S, Bladimir bowden MD [id number],S, p ft nromal, nml uacr, ml a1 ,neg arvin V IT d OK Bladimir Sanders MD [id number],S, H is updated medication list for this problem includes: Coreg 12.5 Mg Tablet (Carvedilol) ..... Take 1 tablet by mouth twice daily Hydrochlorothiazide 25 Mg Tablet (Hydrochlorothiazide) ..... 1 tablet by mouth once a day Aspirin 81 Mg Tablet,delayed Release (dr/ec) (Aspirin) ..... 1 tablet by mouth once a day BP today: 106/69 P rior BP: 125/77 (11/17/2021) Bladimir Sanders MD [id number],S, p ro 20 Bladimir Sanders MD [id number],S, n uc 18 neg, rca 20% 2014, cor score 338 Bladimir Sanders MD [id number],B, i alireza minerced, had colon, b12 and folate ok Bladimir Sanders MD [id number],S, Bladimir Jacobs kal LINDER [id number],S, Bladimir Serot a [id number],S, t ried diet topamz adn adepix in past, did not want wellbuona Bladimir Sanders MD [id number],S, p ft nromal, nml uacr, ml a1 ,neg arvin V IT d OK Bladimir Sanders MD [id number],BEstherey Arlene bowden MD [id number],S, Bladimir Serot a [id number],S, Bladimir Serot a [id number],B, Bladimir Serot a [id number],C, H is updated medication list for this problem includes: Hydrochlorothiazide 25 Mg Oral Tablet (Hydrochlorothiazide) ..... One tab daily Aspirin Adult Low Dose 81 Mg Oral Tablet Delayed Release (Aspirin) ..... One tab by mouth daily Coreg 12.5 Mg Oral Tablet (Carvedilol) ..... One tab. twice daily BP today: 125/77 P rior BP: 114/70 (10/28/2020) Bladimir Sanders MD [id number],S, p ro 20 Bladimir Sanders MD [id number],B, i alireza correced, had colon, b12 and folate ok Bladimir Sanders MD [id number],S, n uc 18 neg, rca 20% 2014, cor score 338 Bladimir Sanders MD [id number],C,n uc 18 neg, rca 20% 2015, cor score 338 Bladimir Sanders MD [id number],S, t ried diet topamz adn adepix in past, did not want wellbuona Bladimir Sanders MD [id number],B, Bladimir bowden MD [id number],B, Bladimir bowden MD [id number],S, H is updated medication list for this problem includes: Hydrochlorothiazide 25 Mg Oral Tablet (Hydrochlorothiazide) ..... One tab daily Aspirin Adult Low Dose 81 Mg Oral Tablet Delayed Release (Aspirin) ..... One tab by mouth daily Coreg 12.5 Mg Oral Tablet (Carvedilol) ..... One tab. twice daily BP today: 114/70 P rior BP: 136/77 (10/16/2019) Bladimir Sanders MD [id number],S, p ro 20 Bladimir Sanders MD [id number],S, p ft nromal, nml uacr, ml a1 and probnp,neg arvin B 12 FOLATRE AND VIT d OK Bladimir Sanders MD [id number],S, s evere T he patient is using CPAP on a regular basis. The patient has been benefiting from therapy and should continue use. Bladimir Sanders MD [id number],SBladimir MD [id number],SBladimir MD [id number],S, n uc 18 neg, 20% rca 15 Bladimir Sadners MD [id number],SBladimir MD [id number],B, i alireza correced, had colon, b12 and folate ok Bladimir Sanders MD Cardiology:continued weight loss c ould not tolerate naltrexone d/t GI upset W ill try GLP-1 Clare Ventimiglia DATA CENTER MANAGER Cardiology:remains m ild E F of 55% [facility] Cardiology:LDL 64 on last labs c rohith statin H is updated medication list for this problem includes: Icosapent Ethyl 1 Gram Capsule (Icosapent ethyl) ..... Take 2 capsules twice a day Atorvastatin 40 Mg Tablet (Atorvastatin) ..... Take 1 tablet by mouth once a day [facility] Cardiology:trig 141 on last labs R emains on vacepa H is updated medication list for this problem includes: Icosapent Ethyl 1 Gram Capsule (Icosapent ethyl) ..... Take 2 capsules twice a day Atorvastatin 40 Mg Tablet (Atorvastatin) ..... Take 1 tablet by mouth once a day [facility] Cardiology:EF 55% on last echo n o new symptoms [facility] Cardiology:BP 132/78 today in office c rohith present meds His updated medication list for this problem includes: Hydrochlorothiazide 25 Mg Tablet (Hydrochlorothiazide) ..... 1 tablet by mouth once a day Coreg 12.5 Mg Tablet (Carvedilol) ..... Take 1 tablet by mouth twice daily Aspirin 81 Mg Tablet,delayed Release (dr/ec) (Aspirin) ..... 1 tablet by mouth once a day [facility] :pro 20 ef 54 Bladimir Sanders MD [...] MD Cardiology Bladimir Sanders MD Cardiology Bladimir Sanedrs MD Cardiology: n uc 18 neg, 20% rca 15 Bladimir Sanders MD Cardiology Bladimir Sanders MD Cardiology: i alireza correced, had colon, b12 and folate ok Bladimir Sanders MD Cardiology:Repeat li pids H is updated medication list for this problem includes: Vascepa 1 Gm Oral Capsule (Icosapent ethyl) ..... 2 capsules by mouth twice daily universal coupon code: bin# [id number], pcn# [email or web address], grp# [email or web address], id# [id number] Atorvastatin Calcium 40 Mg Oral Tablet (Atorvastatin [...] tab. twice daily Orders: I NR Strip (CPT-99900) Bladimir Sanders MD New Patient: O rders: H olter Monitor 24 Hr (CPT-94753) C omplete Echo (CPT-03460) S TR - Adenosine (97630) Bladimir Sanders MD New Patient: O rders: H olter Monitor 24 Hr (CPT-42130) C omplete Echo (CPT-30457) S TR - Adenosine (64514) F ull PFT (*) Bladimir Sanders MD [...] AND TOTAL IRON BINDING CAPACITY DLCO - 00405 FRC - 67365 FVC - 14039 Complete Echo ZIO Holter Sleep Study Home HEMOGLOBIN A1c PROBNP, N TERMINAL DLCO - 45862 FRC - 49069 FVC - 02816 RPR (MONITOR) W/REFL TITER IRON AND TOTAL [...] ower EX INR Strip DLCO Order - 78624 FRC Order - 36739 FVC Order - 57269 Full PFT STR - Adenosine Complete Echo [...] MD complete d FVC / MVV - 83694 Bladimir Sanders MD c ompleted FRC - 56896 Bladimir Sanders MD complet ed SpO2 w/o 6min walk/titration Bladimir Sanders MD completed DLCO - 44713 Bladimir Sanders MD comple loli EKG Bladimir Sanders MD complete d SNOMED-CT: 988500568 376715 Current Medications Documented Bladimir Sanders MD completed FVC / MVV with bronchodilator - 36293 Bladimir Sanders MD completed BLOOD COUNT HEMOGLOBIN Bladimir Sanders MD completed FRC - 06983 Bladimir Sanders MD complet ed SpO2 - 41387 Bladimir Sanders MD comple loli DLCO - 39467 Bladimir Sanders MD comple loli GABBY Sanders MD c ompleted SNOMED-CT: 022284895 836551 Current Medications Documented Bladimir Sanders MD completed EKG Bladimir Sanders MD complete d SNOMED-CT: 391424917 269703 Current Medications Documented Bladimir Sanders MD completed EKG Bladimir Sanders MD complete d BLOOD COUNT HEMOGLOBIN Bladimir Sanders MD completed EKG Bladimir Sanders MD complete d
--- OUTSIDE RECORDS SUMMARY | 2024-05-03 08:53 | XMS_ITS | Encounter Summary ---
Author Organization [facility] Address [address] [facility] [place] [address] Care Team Providers Care Roller Setter Name Role Phone Isidro Heredia MD Unavailable [phone] Tomas Hyman MD Primary Care Provider [phone] Reason for Visit * Treatment (Elective) - Closed Specialty Diagnoses / Procedures Referred By Lawrence shah Referred To Contact Diagnoses Rheumatoid arthritis without rheumatoid factor, multiple sites (HCC) Procedures DE GOLIMUMAB FOR IV USE 1MG Gloria Smith MD [address] [place] [address] [address] Referral ID Status Reason Start Date Expiration Date Visits Re quested Visits Authorized [id number] Closed 05/18/2023 04/29/2024 8 8 Encounter Details Date Type Department Care Team (Late st Contact Info) Description 01/29/2024 9:00 AM CDT - 01/29/2024 11:59 PM CDT Hospital Encounter [facility] Medical [facility] - Rheumatology [address] [place] [address] Gloria Smith MD [address] [place] [address] Rheumatology Discharge Disposition: Home or [...] - 01/29/2024 9:26 AM CDT Discharge Instructions [facility] Rheumatology You have received your infusion treatment [...] through Sunday 9-5 call the office at [phone]. After hours or on the weekend call the exchange at [phone]. If you have had lab work done today the staff will contact you via mail, e-mail or telephone with the results. Remember to bring a copy of your labs to your visits with yourva hospital doctor. It may save you an [...] and are glad you have chosen [facility] as your Provider documented in this encounter [...] tablet by mouth 2 times daily 09/04/2022 [id number]-aa lysorb, PF, 0.5-1-0.5 % SOLN Instill 1 [...] - 01/29/2024 9:26 AM CDT JOSE Deng [id number] 01/29/2024 Diagnosis: Rheumatoid arthritis without rheumatoid factor, multiple sites (HCC) [M06.09]. Pt denies symptoms of infection or antibiotic use, no open wounds, or recent surgery, or plans for surgery in the next couple of weeks. Pt is aware that we use the 0-10 pain scale to assess discomfort. 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 consent for treatment for [...] st Contact Info) Description 06/03/2024 1:00 PM CAUSTICS LOADER Appointment [facility] - Rheumatology [address] [place] [address] 06/03/2024 2:00 PM CAUSTICS LOADER Office Visit [facility] - Rheumatology [address] [place] [address] Gloria Smith MD [address] [place] [phone] documented as of this encounter Visit [...] documented in this encounter Care Teams Roller Setter Relationship Specialty Start Date End Date Tomas Hyman MD [address] [facility] [address] [place] [address] PCP - General Family Medicine 09/05/18 Isidro Heredia MD Rheumatology 02/09/11 documented as of this encounter
--- OUTSIDE RECORDS SUMMARY | 2024-05-03 08:53 | XMS_ITS | Encounter Summary ---
Author Organization [facility] Address [address] [place] [address] Care Team Providers Care Food Assembler Name Role Phone Isidro Heredia MD Unavailable [phone] Tomas Hyman MD Primary Care Provider [phone] Reason for Visit * Reason Onset Date Comments MEDICATION REFILL 02/16/2024 Encounter Details Date Type Department Care Team (Late st Contact Info) Description 02/16/2024 Refill [facility] Medical [facility] - Rheumatology [address] [place] [address] Gloria Smith MD [address] [place] [phone] MEDICATION REFILL Social History Tobacco Use [...] st Contact Info) Description 06/03/2024 1:00 PM INTERN BRAND Appointment [facility] - Rheumatology [address] [place] [phone] 06/03/2024 2:00 PM INTERN BRAND Office Visit [facility] - Rheumatology [address] [place] [phone] Gloria Smith MD [address] [place] [phone] documented as of this encounter Visit Diagnoses Diagnosis High risk medication use Encounter for long-term (current) use of other medications Chronic neck pain Cervicalgia Chronic back pain, unspecified back location, unspecified back pain laterality Rheumatoid arthritis of multiple sites with negative rheumatoid factor (HCC) Neuropathy Mononeuritis of unspecified site documented in this encounter Care Teams Food Assembler Relationship Specialty Start Date End Date Tomas Hyman MD [address] [facility] [address] [place] [id number] PCP - General Family Medicine 09/05/18 Isidro Heredia MD Rheumatology 02/09/11 documented as of this encounter
--- OUTSIDE RECORDS SUMMARY | 2024-05-03 08:53 | XMS_ITS | Encounter Summary ---
Author Organization [facility] Address [address] [place] [address] Care Team Providers Care Vertical Boring Mill Operator Name Role Phone Isidro Heredia MD Unavailable [phone] Tomas Hyman MD Primary Care Provider [phone] Encounter Details Date Type Department Care Team [...] st Contact Info) Description 06/03/2024 1:00 PM RANGE CONSERVATIONIST Appointment [facility] Medical [facility] - Rheumatology [address] [place] [address] 06/03/2024 2:00 PM RANGE CONSERVATIONIST Office Visit [facility] Medical [facility] - Rheumatology [address] [place] [address] Gloria Smith MD [address] [place] [phone] documented as of this encounter Visit Diagnoses Not on filedocumented in this encounter Care Teams Vertical Boring Mill Operator Relationship Specialty Start Date End Date Tomas Hyman MD [address] [place] [address] PCP - General Family Medicine 09/05/18 Isidro Heredia MD Rheumatology 02/09/11 documented as of this encounter
--- OUTSIDE RECORDS SUMMARY | 2024-05-03 08:53 | XMS_ITS | Encounter Summary ---
Author Organization [facility] Address [address] [facility] [place] [address] Care Team Providers Care Powder Nipper Name Role Phone Isidro Heredia MD Unavailable [phone] Tomas Hyman MD Primary Care Provider [phone] Reason for Visit * Reason Comments Rheumatoid Arthritis Encounter Details Date Type Department Care Team (Late st Contact Info) Description 02/08/2024 11:40 AM CDT Office Visit [facility] - Rheumatology [address] [place] [address] Gloria Smith MD [address] [place] [phone] Rheumatoid arthritis of multiple sites with [...] Medical History: Diagnosis Date RA (rheumatoid arthritis) ([facility]) Past Surgical History: Procedure Laterality Date Tonsillectomy [...] results to us. - took alendronate from 0012-3940. - takes otc vit D daily. ORDERS: [...] st Contact Info) Description 06/03/2024 1:00 PM BODY SHOP WORKER Appointment [facility] - Rheumatology [address] [place] [address] 06/03/2024 2:00 PM BODY SHOP WORKER Office Visit [facility] - Rheumatology [address] [place] [address] Gloria Smith MD [address] [place] [address] Scheduled Orders Name Type Priority Associated Diagnoses [...] 03/22/1987 documented in this encounter Care Teams Powder Nipper Relationship Specialty Start Date End Date Tomas Hyman MD [address] [facility] [address] [place] [address] PCP - General Family Medicine 09/05/18 Isidro Heredia MD Rheumatology 02/09/11 documented as of this encounter
--- OUTSIDE RECORDS SUMMARY | 2024-05-03 08:53 | XMS_ITS | Encounter Summary ---
Author Organization [facility] Address [address] [facility] [place] [address] Care Team Providers Care Kitchen Cleaner Name Role Phone Isidro Heredia MD Unavailable [phone] Tomas Hyman MD Primary Care Provider [phone] Reason for Visit * Treatment (Elective) - Closed Specialty Diagnoses / Procedures Referred By Lawrence shah Referred To Contact Diagnoses Rheumatoid arthritis without rheumatoid factor, multiple sites (HCC) Procedures [place] GOLIMUMAB FOR IV USE 1MG Gloria Smith MD [address] [place] [address] [address] Referral ID Status Reason Start Date Expiration Date Visits Re quested Visits Authorized [id number] Closed 05/18/2023 04/29/2024 8 8 Encounter Details Date Type Department Care Team (Late st Contact Info) Description 09/28/2023 8:45 AM CDT - 09/28/2023 11:59 PM CDT Hospital Encounter [facility] Medical [facility] - Rheumatology [address] [place] [address] Gloria Smith MD [address] [place] [address] Rheumatology Discharge Disposition: Home or [...] - 09/28/2023 9:29 AM CDT Discharge Instructions [facility] Rheumatology You have received your infusion [...] through Sunday 9-5 call the office at [phone], or infusion room on [phone]. After hours or on the weekend call the exchange at [phone]. If you have had lab work done [...] tablet by mouth 2 times daily 09/04/2022 fbfzqvbuhyi-xbuz-mhxy sorb, PF, 0.5-1-0.5 % SOLN Instill 1 [...] - 09/28/2023 9:33 AM CDT JOSE Deng [id number] 09/28/2023 Diagnosis: Rheumatoid arthritis without rheumatoid factor, multiple sites (HCC) [M06.09]. Pt denies symptoms of infection or antibiotic use, no open wounds, or recent surgery, or plans for surgery in the next couple of weeks. Pt is aware that we use the 0-10 pain scale to assess discomfort. 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 pt signs consent for treatment for this [...] st Contact Info) Description 06/03/2024 1:00 PM EXERCISE RIDER Appointment [facility] - Rheumatology [address] [place] [address] 06/03/2024 2:00 PM EXERCISE RIDER Office Visit [facility] - Rheumatology [address] [place] [address] Gloria Smith MD [address] [place] [phone] documented as of this encounter Visit [...] mL/hr documented in this encounter Care Teams Kitchen Cleaner Relationship Specialty Start Date End Date Tomas Hyman MD [address] [place] [address] PCP - General Family Medicine 09/05/18 Isidro Heredia MD Rheumatology 02/09/11 documented as of this encounter
--- OUTSIDE RECORDS SUMMARY | 2024-05-03 08:53 | XMS_ITS | Encounter Summary ---
Author Organization [facility] Address [address] [place] [address] Care Team Providers Care Boiler Out Name Role Phone Isidro Heredia MD Unavailable [phone] Tomas Hyman MD Primary Care Provider [phone] Encounter Details Date Type Department Care Team (Late Contact Info) Description 11/13/2023 Orders Only [facility] - Rheumatology [address] [facility], [address] [place] [phone] Gloria Smith MD [address] [place] [phone] Social History Tobacco Use Types Packs/Day [...] (Late Contact Info) Description 06/03/2024 1:00 PM CARGO ROUTER Appointment [facility] - Rheumatology [address] [place] [address] 06/03/2024 2:00 PM CARGO ROUTER Office Visit [facility] - Rheumatology [address] [place] [address] Gloria Smith MD [address] [place] [phone] documented as of this encounter Visit Diagnoses Not on filedocumented in this encounter Care Teams Boiler Out Relationship Specialty Start Date End Date Tomas Hyman MD [address] [facility] [address] [place] [id number] PCP - General Family Medicine 09/05/18 Isidro Heredia MD Rheumatology 02/09/11 documented as of this encounter
--- OUTSIDE RECORDS SUMMARY | 2024-05-03 08:53 | XMS_ITS | Encounter Summary ---
Author Organization [facility] Address [address] [place] [address] Care Team Providers Care Industrial Training Specialist Name Role Phone Isidro Heredia MD Unavailable [phone] Tomas Hyman MD Primary Care Provider [phone] Encounter Details Date Type Department Care Team (Late Contact Info) Description 01/04/[address] [facility] - Rheumatology [address] [place] [address] Gloria Smith MD [address] [place] [phone] Rheumatoid arthritis of multiple sites with [...] (Late Contact Info) Description 06/03/2024 1:[address] [facility] - Rheumatology [address] [place] [address] 06/03/2024 2:00 PM BILLET RECORDER Office Visit [facility] - Rheumatology [address] [place] [address] [place] [phone] Gloria Smith MD [address] [place] [address] documented as of this encounter [...] 01/29/2024 6:08 PM CDT Performed at: ?? [facility] [address] [place] ??[id number] Vascular Technologist Sonographer: Sanchez Wagner [facility], Phone: ??[phone] Gloria Smith MD LAB - CHEMISTRY MARII ARAUJO [facility] INSURANCE BILL [address] [place] [address] * (ABNORMAL) CBC WITH DIFFERENTIAL (01/29/2024 10:37 [...] 01/29/2024 6:08 PM CDT Performed at: ?? [facility] [address] , [place], [place] ??[id number] Vascular Technologist Sonographer: Sanchez Wagner [facility], Phone: ??[phone] Gloria Smith MD LAB - HEMATOLOGY ORD ERABLES [facility] INSURANCE BILL [address] [place] [address] documented in this encounter Visit Diagnoses Diagnosis Rheumatoid arthritis of multiple sites with negative rheumatoid factor (HCC) documented in this encounter Care Teams Industrial Training Specialist Relationship Specialty Start Date End Date Tomas Hyman MD [address] [place] [address] PCP - General Family Medicine 09/05/18 Isidro Heredia MD Rheumatology 02/09/11 documented as of this encounter
--- OUTSIDE RECORDS SUMMARY | 2024-05-03 08:53 | XMS_ITS | Encounter Summary ---
Author Organization [facility] Address [address] [facility] [place] [address] Care Team Providers Care Animal Husbandry Professor Name Role Phone Isidro Heredia MD Unavailable [phone] Tomsa Hyman MD Primary Care Provider [phone] Encounter Details Date Type Department Care Team (Late Contact Info) Description 11/09/2023 Orders Only [facility] - Rheumatology [address] [place] [address] Gloria Smith MD [address] [place] [phone] Rheumatoid arthritis of multiple sites with [...] (Late Contact Info) Description 06/03/2024 1:00 PM DRAGLINE OILER Appointment [facility] - Rheumatology [address] [place] [address] 06/03/2024 2:00 PM DRAGLINE OILER Office Visit [facility] - Rheumatology [address] [place] [address] [place] [address] Gloria Smith MD [address] [place] [address] documented as of this encounter Visit Diagnoses Diagnosis Rheumatoid arthritis of multiple sites with negative rheumatoid factor (HCC) documented in this encounter Care Teams Animal Husbandry Professor Relationship Specialty Start Date End Date Tomas Hyman MD [address] [facility] [address] [place] [address] PCP - General Family Medicine 09/05/18 Isidro Heredia MD Rheumatology 02/09/11 documented as of this encounter
--- OUTSIDE RECORDS SUMMARY | 2024-05-03 08:53 | XMS_ITS | Encounter Summary ---
Author Organization [facility] Address [address] [place] [address] Care Team Providers Care Private Duty Lpn Name Role Phone Isidro Heredia MD Unavailable [phone] Tomas Hyman MD Primary Care Provider [phone] Reason for Visit * Treatment (Elective) - Closed Specialty Diagnoses / Procedures Referred By Lawrence shah Referred To Contact Diagnoses Rheumatoid arthritis without rheumatoid factor, multiple sites (HCC) Procedures [place] GOLIMUMAB FOR IV USE 1MG Gloria Smith MD [address] [place] [address] [address] Referral ID Status Reason Start Date Expiration Date Visits Re quested Visits Authorized [id number] Closed 05/18/2023 04/29/2024 8 8 Encounter Details Date Type Department Care Team (Late st Contact Info) Description 04/04/2024 9:45 AM PORTABLE TRACK LINE MARKER - 04/04/2024 11:59 PM PORTABLE TRACK LINE MARKER Hospital Encounter [facility] Medical [facility] - Rheumatology [address] [place] [address] Gloria Smith MD [address] [place] [address] Rheumatology Discharge Disposition: Home or [...] Comments Blood Pressure 144/83 04/04/2024 10:23 AM PORTABLE TRACK LINE MARKER Pulse 82 04/04/2024 10:23 AM PORTABLE TRACK LINE MARKER Temperature 36.8 ??C (98.2 ??F) 04/04/2024 1 0:23 AM PORTABLE TRACK LINE MARKER Respiratory Rate - - Oxygen Saturation - - Inhaled Oxygen Concentration - - Weight 106.4 kg (234 lb 9.6 oz) 024 10:23 AM PORTABLE TRACK LINE MARKER Height - - Body Mass Index 33.66 02/08/2024 11:48 AM CDT documented in this encounter Discharge Instructions * Discharge Instructions* Shelby Higgins RN - 04/04/2024 10:29 AM PORTABLE TRACK LINE MARKER Discharge Instructions [facility] Rheumatology You have received your infusion [...] through Sunday 9-5 call the office at [phone]. After hours or on the weekend call [...] you and are glad you have chosen Enedian Padilla as your Provider ABLE TRACK LINE MARKER documented in this encounter Medications at Time of Discharge Medication Sig Dispensed Refills Start Date End Date aspirin EC (ECOTRIN) 81 MG tablet Take 1 (one) tablet by mouth once daily 90 tablet 11/14/2021 atorvastatin (LIPITOR) 40 MG tablet Take 1 (one) tablet by mouth at bedtime buPROPion (Wellbutrin) 100 MG tablet Take 1 (one) tablet by mouth 2 times daily 09/04/2022 yukbpklksta-eayz-hfg ysorb, PF, 0.5-1-0.5 % SOLN Instill 1 [...] - 04/04/2024 10:29 AM CST JOSE Deng [id number] 04/04/2024 Diagnosis: Rheumatoid arthritis without rheumatoid factor, multiple sites (HCC) [M06.09]. Pt denies symptoms of infection or antibiotic use, no open wounds, or recent surgery, or plans for surgery in the next couple of weeks. Pt is aware that we use the 0-10 pain scale to assess discomfort. 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 front edger pt signs consent for treatment for this [...] treatment? Q 8 weeks Shelby Higgins RN ABLE TRACK LINE MARKER documented in this encounter Plan of Treatment Upcoming Encounters Date Type Department Care Team (Late st Contact Info) Description 06/03/2024 1:00 PM PORTABLE TRACK LINE MARKER Appointment [facility] - Rheumatology [address] [place] [address] [id number] 06/03/2024 2:00 PM PORTABLE TRACK LINE MARKER Office Visit [facility] - Rheumatology [address] [place] [phone] Gloria Smith MD [address] [place] [phone] documented as of this encounter Visit Diagnoses [...] filter. $ New Bag/Syringe 04/04/2024 10:34 AM PORTABLE TRACK LINE MARKER 212.5 mg 200 mL/hr documented in this encounter Care Teams Private Duty Lpn Relationship Specialty Start Date End Date Tomas Hyman MD [address] [place] [address] PCP - General Family Medicine 09/05/18 Isidro Heredia MD Rheumatology 02/09/11 documented as of this encounter
--- OUTSIDE RECORDS SUMMARY | 2024-05-03 08:53 | XMS_ITS | Patient Health Summary ---
Author Organization [facility] Address [address] [place] [address] Care Team Providers Care Board Certified Family Physician Name Role Phone Isidro Heredia MD Unavailable [phone] Tomas Hyman MD Primary Care Provider [phone] Note from [facility],non-owned Affiliates and Associated Physician Practices is amultiple site organization consisting of ambulatory clinics and hospital sitesin [place]. This disclosure is being madepursuant to the Care Everywhere program and may not contain all information available regarding this patient. Last updated 18.[facility] Allergies * Hydroxychloroquine(Eye Discomfort) -High Criticality [...] 1 Tab by mouth once daily * Zjixpdkwugw-Ivrdikfui-Gfl C-Mn (GLUCOSAMINE CHONDR 1500 COMPLX PO) Take [...] mg by mouth 2 times daily * ctmlqgqwayh-sxff-jbmzrkqv, PF, 0.5-1-0.5 % SOLN Instill 1 drop [...] (gastroesophageal reflux disease) 9 Rheumatoid arthritis of [facility] sites with negative rheumatoid factor 07/21/2008 Immunizations [...] Comments Blood Pressure 144/83 04/04/2024 10:23 AM INSERTING PRESS OPERATOR Pulse 82 04/04/2024 10:23 AM INSERTING PRESS OPERATOR Temperature 36.8 ??C (98.2 ??F) 04/04/2024 1 0:23 AM INSERTING PRESS OPERATOR Respiratory Rate 16 09/18/2023 3:34 PM CDT Oxygen Saturation 100% 01/30/2023 10: 56 AM CDT Inhaled Oxygen Concentration - - Weight 106.4 kg (234 lb 9.6 oz) 024 10:23 AM INSERTING PRESS OPERATOR Height 177.8 cm (5' 10 ) 02/08/2024 [...] of multiple sites with negative rheumatoid factor ([facility]) * ERYTHROCYTE SEDIMENTATION RATE(Performed 06/14/2015) Performed for Rheumatoid arthritis of 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 factor ([facility]) * COMPREHENSIVE METABOLIC PANEL(Performed 06/14/2015) Performed for Rheumatoid arthritis of multiple 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 factor ([facility]) * CBC W AUTO DIFFERENTIAL(Performed 06/14/2015) Performed for Rheumatoid arthritis of multiple sites with negative rheumatoid factor ([facility]) * ERYTHROCYTE SEDIMENTATION RATE(Performed 04/07/2015) Performed for Rheumatoid arthritis of multiple 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 factor ([facility]) * C-REACTIVE PROTEIN(Performed 04/07/2015) Performed for Rheumatoid arthritis of multiple 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 factor ([facility]) * COMPREHENSIVE METABOLIC PANEL(Performed 04/07/2015) Performed for Rheumatoid arthritis of multiple 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 factor ([facility]) * CBC W AUTO DIFFERENTIAL(Performed 04/07/2015) Performed for Rheumatoid arthritis of multiple 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 factor ([facility]) * LIPID PROFILE W TCHOL/HDL(Performed 03/04/2015) Performed for Rheumatoid arthritis(714.0) ([facility]) * ERYTHROCYTE SEDIMENTATION RATE(Performed 03/04/2015) Performed for Rheumatoid arthritis(714.0) ([facility]) * COMPREHENSIVE METABOLIC PANEL(Performed 03/04/2015) Performed for Rheumatoid arthritis(714.0) ([facility]) * CBC W AUTO DIFFERENTIAL(Performed 03/04/2015) Performed for Rheumatoid arthritis(714.0) ([facility]) * ERYTHROCYTE SEDIMENTATION RATE(Performed 01/07/2015) Performed for Rheumatoid arthritis(714.0) ([facility]) * COMPREHENSIVE METABOLIC PANEL(Performed 01/07/2015) Performed for Rheumatoid arthritis(714.0) ([facility]) * CBC W AUTO DIFFERENTIAL(Performed 01/07/2015) Performed for Rheumatoid arthritis(714.0) ([facility]) * PAIN MANAGEMENT PROCEDURE TIME(Performed 12/29/2014) Performed for Displacement of lumbar intervertebral disc without myelopathy, Thoracic or lumbosacral neuritis or radiculitis, unspecified * PAIN MANAGEMENT PROCEDURE TIME(Performed 12/21/2014) Performed for Displacement of lumbar intervertebral disc without myelopathy, Thoracic or lumbosacral neuritis or radiculitis, unspecified * ERYTHROCYTE SEDIMENTATION RATE(Performed 11/05/2014) Performed for Rheumatoid arthritis(714.0) ([facility]) * COMPREHENSIVE METABOLIC PANEL(Performed 11/05/2014) Performed for Rheumatoid arthritis(714.0) ([facility]) * CBC W AUTO DIFFERENTIAL(Performed 11/05/2014) Performed for Rheumatoid arthritis(714.0) ([facility]) * RHEUMATOID FACTOR BLOOD QUANTITATIVE(Performed 08/12/2014) Performed for Rheumatoid arthritis(714.0) ([facility]) * ERYTHROCYTE SEDIMENTATION RATE(Performed 08/12/2014) Performed for Rheumatoid arthritis(714.0) ([facility]) * C-REACTIVE PROTEIN(Performed 08/12/2014) Performed for Rheumatoid arthritis(714.0) ([facility]) * COMPREHENSIVE METABOLIC PANEL(Performed 08/12/2014) Performed for Rheumatoid arthritis(714.0) ([facility]) * CYCLIC CITRUL PEPTIDE ANTIBODY IGG/IGA (CCP)(Performed 08/12/2014) Performed for Rheumatoid arthritis(714.0) ([facility]) * CBC W AUTO DIFFERENTIAL(Performed 08/12/2014) Performed for Rheumatoid arthritis(714.0) ([facility]) * KAMI STAINING PATTERNS REFLEXED(Performed 08/12/2014) Performed for Rheumatoid arthritis(714.0) ([facility]) * ROSA BLOOD SCREEN W/REFLEX TITER(Performed 08/12/2014) Performed for Rheumatoid arthritis(714.0) ([facility]) * CYCLIC CITRUL PEPTIDE ANTIBODY IGG/IGA (CCP)(Performed 08/12/2014) Performed for Rheumatoid arthritis(714.0) ([facility]) * C-REACTIVE PROTEIN(Performed 08/12/2014) Performed for Rheumatoid arthritis(714.0) ([facility]) * COMPREHENSIVE METABOLIC PANEL(Performed 08/12/2014) Performed for Rheumatoid arthritis(714.0) ([facility]) * CBC W AUTO DIFFERENTIAL(Performed 08/12/2014) Performed for Rheumatoid arthritis(714.0) ([facility]) * XR HAND BILAT 1VW(Performed 08/12/2014) Performed for Rheumatoid arthritis(714.0) ([facility]) * ERYTHROCYTE SEDIMENTATION RATE(Performed 06/08/2014) Performed for Rheumatoid Arthritis ([facility]) * COMPREHENSIVE METABOLIC PANEL(Performed 06/08/2014) Performed for Rheumatoid Arthritis ([facility]) * CBC W AUTO DIFFERENTIAL(Performed 06/08/2014) Performed for Rheumatoid Arthritis ([facility]) * CARDIAC EKG ORDER(Performed 05/22/2014) * PAIN [...] SEDIMENTATION RATE(Performed 03/12/2014) Performed for Rheumatoid Arthritis ([facility]) * COMPREHENSIVE METABOLIC PANEL(Performed 03/12/2014) Performed for Rheumatoid Arthritis ([facility]) * CBC W AUTO DIFFERENTIAL(Performed 03/12/2014) Performed for Rheumatoid Arthritis ([facility]) * PAIN MANAGEMENT PROCEDURE TIME(Performed 03/10/2014) Performed for Displacement Of Lumbar Intervertebral Disc Without Myelopathy, Thoracic or lumbosacral neuritis or radiculitis, unspecified * XR CERVICAL SPINE 2 OR 3VW(Performed 02/25/2014) Performed for Rheumatoid Arthritis ([facility]) * COMPREHENSIVE METABOLIC PANEL(Performed 01/14/2014) Performed for Rheumatoid Arthritis ([facility]) * ERYTHROCYTE SEDIMENTATION RATE(Performed 01/14/2014) Performed for Rheumatoid Arthritis ([facility]) * CBC W AUTO DIFFERENTIAL(Performed 01/14/2014) Performed for Rheumatoid Arthritis ([facility]) * XR LUMBAR SPINE 2 OR 3VW(Performed 01/06/2014) Performed for Lumbar radiculopathy * MRI LUMBAR SPINE WO CONTRAST(Performed 01/02/2014) Performed for Lumbar radiculopathy * IMAGING/RADIOLOGY/XRAY RESULTS ORDER(Performed 01/02/2014) * LIPID PROFILE W TCHOL/HDL(Performed 12/12/2013) Performed for Other And Unspecified Hyperlipidemia * COMPREHENSIVE METABOLIC PANEL(Performed 11/12/2013) Performed for Rheumatoid Arthritis ([facility]) * ERYTHROCYTE SEDIMENTATION RATE(Performed 11/12/2013) Performed for Rheumatoid Arthritis ([facility]) * CBC W AUTO DIFFERENTIAL(Performed 11/12/2013) Performed for Rheumatoid Arthritis ([facility]) * ERYTHROCYTE SEDIMENTATION RATE(Performed 09/04/2013) Performed for Rheumatoid Arthritis ([facility]) * COMPREHENSIVE METABOLIC PANEL(Performed 09/04/2013) Performed for Rheumatoid Arthritis ([facility]) * CBC W AUTO DIFFERENTIAL(Performed 09/04/2013) Performed [...] METABOLIC PANEL(Performed 04/11/2013) Performed for Rheumatoid Arthritis ([facility]) * CBC W AUTO DIFFERENTIAL(Performed 04/11/2013) Performed for Rheumatoid Arthritis ([facility]) * CT CHEST ABDOMEN PELVIS W CONT(Performed 03/25/2013) Performed for Pleurisy, Abdominal pain * XR CHEST 2VW(Performed 03/24/2013) Performed for Pleurisy * URINALYSIS AUTO - POINT OF CARE(Performed 03/24/2013) Performed for Rheumatoid Arthritis ([facility]) * ERYTHROCYTE SEDIMENTATION RATE(Performed 03/21/2013) Performed for Rheumatoid Arthritis ([facility]) * C-REACTIVE PROTEIN(Performed 03/21/2013) Performed for Rheumatoid Arthritis ([facility]) * COMPREHENSIVE METABOLIC PANEL(Performed 03/21/2013) Performed for Rheumatoid Arthritis ([facility]) * CBC W AUTO DIFFERENTIAL(Performed 03/21/2013) Performed for Rheumatoid Arthritis ([facility]) * KAMI STAINING PATTERNS REFLEXED(Performed 02/10/2013) Performed for Rheumatoid Arthritis ([facility]) * CYCLIC CITRUL PEPTIDE ANTIBODY IGG/IGA (CCP)(Performed 02/10/2013) Performed for Rheumatoid Arthritis ([facility]) * RHEUMATOID FACTOR BLOOD QUANTITATIVE(Performed 02/10/2013) Performed for Rheumatoid Arthritis ([facility]) * ROSA BLOOD SCREEN W/REFLEX TITER(Performed 02/10/2013) Performed for Rheumatoid Arthritis ([facility]) * ERYTHROCYTE SEDIMENTATION RATE(Performed 02/10/2013) Performed for Rheumatoid Arthritis ([facility]) * C-REACTIVE PROTEIN(Performed 02/10/2013) Performed for Rheumatoid Arthritis ([facility]) * COMPREHENSIVE METABOLIC PANEL(Performed 02/10/2013) Performed for [...] METABOLIC PANEL(Performed 09/02/2012) Performed for Rheumatoid arthritis ([facility]) * CBC W AUTO DIFFERENTIAL(Performed 09/02/2012) Performed for Rheumatoid arthritis ([facility]) * QUANTIFERON IN TUBE REFLEXED(Performed 07/22/2012) Performed [...] METABOLIC PANEL(Performed 06/24/2012) Performed for Rheumatoid arthritis ([facility]) * CBC W AUTO DIFFERENTIAL(Performed 06/24/2012) Performed [...] C-REACTIVE PROTEIN(Performed 10/09/2011) Performed for Rheumatoid arthritis ([facility]) * COMPREHENSIVE METABOLIC PANEL(Performed 10/09/2011) Performed for Rheumatoid arthritis ([facility]) * CBC W AUTO DIFFERENTIAL(Performed 10/09/2011) Performed for Rheumatoid arthritis ([facility]) * ERYTHROCYTE SEDIMENTATION RATE(Performed 09/04/2011) Performed for Rheumatoid arthritis ([facility]) * C-REACTIVE PROTEIN(Performed 09/04/2011) Performed for Rheumatoid arthritis ([facility]) * COMPREHENSIVE METABOLIC PANEL(Performed 09/04/2011) Performed for Rheumatoid arthritis ([facility]) * CBC W AUTO DIFFERENTIAL(Performed 09/04/2011) Performed for Rheumatoid arthritis ([facility]) * C-REACTIVE PROTEIN(Performed 05/15/2011) Performed for Rheumatoid arthritis ([facility]) * LIPID PROFILE W LDL/HDL RATIO(Performed 05/15/2011) Performed for Hyperlipidemia * ERYTHROCYTE SEDIMENTATION RATE(Performed 05/15/2011) Performed for Rheumatoid arthritis ([facility]) * COMPREHENSIVE METABOLIC PANEL(Performed 05/15/2011) Performed for Rheumatoid arthritis ([facility]) * CBC W AUTO DIFFERENTIAL(Performed 05/15/2011) Performed for Rheumatoid arthritis ([facility]) * ERYTHROCYTE SEDIMENTATION RATE(Performed 04/17/2011) Performed for Rheumatoid arthritis ([facility]) * C-REACTIVE PROTEIN(Performed 04/17/2011) Performed for Rheumatoid arthritis ([facility]) * COMPREHENSIVE METABOLIC PANEL(Performed 04/17/2011) Performed for Rheumatoid arthritis ([facility]) * CBC W AUTO DIFFERENTIAL(Performed 04/17/2011) Performed for Rheumatoid arthritis ([facility]) * ERYTHROCYTE SEDIMENTATION RATE(Performed 03/20/2011) Performed for Rheumatoid arthritis ([facility]) * C-REACTIVE PROTEIN(Performed 03/20/2011) Performed for Rheumatoid arthritis ([facility]) * COMPREHENSIVE METABOLIC PANEL(Performed 03/20/2011) Performed for Rheumatoid arthritis ([facility]) * CBC W AUTO DIFFERENTIAL(Performed 03/20/2011) Performed for Rheumatoid arthritis ([facility]) * CYCLIC CITRUL PEPTIDE ANTIBODY IGG/IGA (CCP)(Performed 02/13/2011) Performed for Rheumatoid arthritis ([facility]) * RHEUMATOID FACTOR BLOOD QUANTITATIVE(Performed 02/13/2011) Performed for Rheumatoid arthritis ([facility]) * ERYTHROCYTE SEDIMENTATION RATE(Performed 02/13/2011) Performed for Rheumatoid arthritis ([facility]) * C-REACTIVE PROTEIN(Performed 02/13/2011) Performed for Rheumatoid arthritis ([facility]) * COMPREHENSIVE METABOLIC PANEL(Performed 02/13/2011) Performed for Rheumatoid arthritis ([facility]) * CBC W AUTO DIFFERENTIAL(Performed 02/13/2011) Performed [...] SEDIMENTATION RATE(Performed 06/27/2010) Performed for Rheumatoid arthritis ([facility]) * CBC W AUTO DIFFERENTIAL(Performed 06/27/2010) Performed for Rheumatoid arthritis ([facility]) * C-REACTIVE PROTEIN(Performed 06/27/2010) Performed for Rheumatoid arthritis ([facility]) * COMPREHENSIVE METABOLIC PANEL(Performed 06/27/2010) Performed for Rheumatoid arthritis ([facility]) * ERYTHROCYTE SEDIMENTATION RATE(Performed 05/26/2010) Performed for Rheumatoid arthritis ([facility]) * C-REACTIVE PROTEIN(Performed 05/26/2010) Performed for Rheumatoid arthritis ([facility]) * COMPREHENSIVE METABOLIC PANEL(Performed 05/26/2010) Performed for Rheumatoid arthritis ([facility]) * CBC W AUTO DIFFERENTIAL(Performed 05/26/2010) Performed for Rheumatoid arthritis ([facility]) * ERYTHROCYTE SEDIMENTATION RATE(Performed 04/18/2010) Performed for Rheumatoid arthritis ([facility]) * C-REACTIVE PROTEIN(Performed 04/18/2010) Performed for Rheumatoid arthritis ([facility]) * COMPREHENSIVE METABOLIC PANEL(Performed 04/18/2010) Performed for Rheumatoid arthritis ([facility]) * CBC W AUTO DIFFERENTIAL(Performed 04/18/2010) Performed for Rheumatoid arthritis ([facility]) * ERYTHROCYTE SEDIMENTATION RATE(Performed 01/10/2010) Performed for Rheumatoid Arthritis ([facility]) * C-REACTIVE PROTEIN(Performed 01/10/2010) Performed for Rheumatoid Arthritis ([facility]) * COMPREHENSIVE METABOLIC PANEL(Performed 01/10/2010) Performed for Rheumatoid Arthritis ([facility]) * CBC W AUTO DIFFERENTIAL(Performed 01/10/2010) Performed for Rheumatoid Arthritis ([facility]) * ERYTHROCYTE SEDIMENTATION RATE(Performed 12/13/2009) Performed for Rheumatoid Arthritis ([facility]) * RHEUMATOID FACTOR BLOOD QUANTITATIVE(Performed 12/13/2009) Performed for Rheumatoid Arthritis ([facility]) * CYCLIC CITRUL PEPTIDE ANTIBODY IGG/IGA (CCP)(Performed 12/13/2009) Performed for Rheumatoid Arthritis ([facility]) * C-REACTIVE PROTEIN(Performed 12/13/2009) Performed for Rheumatoid Arthritis ([facility]) * COMPREHENSIVE METABOLIC PANEL(Performed 12/13/2009) Performed for Rheumatoid Arthritis ([facility]) * CBC W AUTO DIFFERENTIAL(Performed 12/13/2009) Performed for Rheumatoid Arthritis ([facility]) * CBC W AUTO DIFFERENTIAL(Performed 11/08/2009) * ERYTHROCYTE SEDIMENTATION RATE(Performed 11/08/2009) Performed for Rheumatoid Arthritis ([facility]) * CYCLIC CITRUL PEPTIDE ANTIBODY IGG/IGA (CCP)(Performed 11/08/2009) Performed for Rheumatoid Arthritis ([facility]) * C-REACTIVE PROTEIN(Performed 11/08/2009) Performed for Rheumatoid Arthritis ([facility]) * COMPREHENSIVE METABOLIC PANEL(Performed 11/08/2009) Performed for Rheumatoid Arthritis ([facility]) * ERYTHROCYTE SEDIMENTATION RATE(Performed 10/04/2009) Performed for Rheumatoid Arthritis ([facility]) * COMPREHENSIVE METABOLIC PANEL(Performed 10/04/2009) Performed for Rheumatoid Arthritis ([facility]) * C-REACTIVE PROTEIN(Performed 10/04/2009) Performed for Rheumatoid Arthritis ([facility]) * CBC W AUTO DIFFERENTIAL(Performed 10/04/2009) Performed for Rheumatoid Arthritis ([facility]) * ROSA BLOOD SCREEN W/REFLEX TITER(Performed 08/30/2009) * COMPREHENSIVE METABOLIC PANEL(Performed 08/30/2009) * CBC W AUTO DIFFERENTIAL(Performed 08/30/2009) * ERYTHROCYTE SEDIMENTATION RATE(Performed 08/30/2009) Performed for Rheumatoid Arthritis ([facility]) * RHEUMATOID FACTOR BLOOD QUANTITATIVE(Performed 08/30/2009) Performed for Rheumatoid Arthritis ([facility]) * CYCLIC CITRUL PEPTIDE ANTIBODY IGG/IGA (CCP)(Performed 08/30/2009) Performed for Rheumatoid Arthritis ([facility]) * C-REACTIVE PROTEIN(Performed 08/30/2009) Performed for Rheumatoid Arthritis ([facility]) * C-REACTIVE PROTEIN(Performed 08/02/2009) * COMPREHENSIVE METABOLIC PANEL(Performed 08/02/2009) * CBC W AUTO DIFFERENTIAL(Performed 08/02/2009) * ERYTHROCYTE SEDIMENTATION RATE(Performed 08/02/2009) Performed for Rheumatoid Arthritis ([facility]) * ERYTHROCYTE SEDIMENTATION RATE(Performed 07/05/2009) * C-REACTIVE PROTEIN(Performed 07/05/2009) Performed for Rheumatoid Arthritis ([facility]) * COMPREHENSIVE METABOLIC PANEL(Performed 07/05/2009) Performed for Rheumatoid Arthritis ([facility]) * CBC W AUTO DIFFERENTIAL(Performed 07/05/2009) Performed for Rheumatoid Arthritis ([facility]) * C-REACTIVE PROTEIN(Performed 06/07/2009) * ERYTHROCYTE SEDIMENTATION RATE(Performed 06/07/2009) * COMPREHENSIVE METABOLIC PANEL(Performed 06/07/2009) Performed for Rheumatoid Arthritis ([facility]) * CBC W AUTO DIFFERENTIAL(Performed 06/07/2009) Performed for Rheumatoid Arthritis ([facility]) * ERYTHROCYTE SEDIMENTATION RATE(Performed 05/05/2009) Performed for Rheumatoid Arthritis ([facility]) * COMPREHENSIVE METABOLIC PANEL(Performed 05/05/2009) Performed for Rheumatoid Arthritis ([facility]) * C-REACTIVE PROTEIN(Performed 05/05/2009) Performed for Rheumatoid Arthritis ([facility]) * CBC W AUTO DIFFERENTIAL(Performed 05/05/2009) Performed for Rheumatoid Arthritis ([facility]) * RHEUMATOID FACTOR BLOOD QUANTITATIVE(Performed 04/05/2009) Performed for Rheumatoid Arthritis ([facility]) * C-REACTIVE PROTEIN(Performed 04/05/2009) Performed for Rheumatoid Arthritis ([facility]) * COMPREHENSIVE METABOLIC PANEL(Performed 04/05/2009) Performed for Rheumatoid Arthritis ([facility]) * CBC W AUTO DIFFERENTIAL(Performed 04/05/2009) Performed for Rheumatoid Arthritis ([facility]) * COMPREHENSIVE METABOLIC PANEL(Performed 03/08/2009) * CBC W AUTO DIFFERENTIAL(Performed 03/08/2009) * ERYTHROCYTE SEDIMENTATION RATE(Performed 03/08/2009) Performed for Rheumatoid Arthritis ([facility]) * C-REACTIVE PROTEIN(Performed 03/08/2009) Performed for Rheumatoid Arthritis ([facility]) * C-REACTIVE PROTEIN(Performed 02/08/2009) * COMPREHENSIVE METABOLIC PANEL(Performed 02/08/2009) * CBC W AUTO DIFFERENTIAL(Performed 02/08/2009) * ERYTHROCYTE SEDIMENTATION RATE(Performed 02/08/2009) Performed for Rheumatoid Arthritis ([facility]) * COMPREHENSIVE METABOLIC PANEL(Performed 01/11/2009) * ERYTHROCYTE SEDIMENTATION RATE(Performed 01/11/2009) Performed for Rheumatoid Arthritis ([facility]) * C-REACTIVE PROTEIN(Performed 01/11/2009) Performed for Rheumatoid Arthritis ([facility]) * CBC W AUTO DIFFERENTIAL(Performed 01/11/2009) Performed for Rheumatoid Arthritis ([facility]) * ERYTHROCYTE SEDIMENTATION RATE(Performed 12/14/2008) Performed for Rheumatoid Arthritis ([facility]) * C-REACTIVE PROTEIN(Performed 12/14/2008) Performed for Rheumatoid Arthritis ([facility]) * COMPREHENSIVE METABOLIC PANEL(Performed 12/14/2008) Performed for Rheumatoid Arthritis ([facility]) * CBC W AUTO DIFFERENTIAL(Performed 12/14/2008) Performed for Rheumatoid Arthritis ([facility]) * C-REACTIVE PROTEIN(Performed 11/16/2008) * ERYTHROCYTE SEDIMENTATION RATE(Performed 11/16/2008) * COMPREHENSIVE METABOLIC PANEL(Performed 11/16/2008) Performed for Rheumatoid Arthritis ([facility]) * CBC W AUTO DIFFERENTIAL(Performed 11/16/2008) Performed for Rheumatoid Arthritis ([facility]) * RHEUMATOID FACTOR BLOOD QUANTITATIVE(Performed 10/12/2008) * ERYTHROCYTE SEDIMENTATION RATE(Performed 10/12/2008) Performed for Rheumatoid Arthritis ([facility]) * C-REACTIVE PROTEIN(Performed 10/12/2008) Performed for Rheumatoid Arthritis ([facility]) * COMPREHENSIVE METABOLIC PANEL(Performed 10/12/2008) Performed for Rheumatoid Arthritis ([facility]) * IMAGING/RADIOLOGY/XRAY RESULTS ORDER(Performed 08/28/2008) * CYCLIC CITRULLINATED PEPTIDE([facility]) AB IGG(Performed 08/24/2008) * RHEUMATOID FACTOR BLOOD QUANTITATIVE(Performed 08/24/2008) * HEMOGLOBIN A1C(Performed 08/24/2008) Performed for Rheumatoid Arthritis ([facility]) * TSH(Performed 08/24/2008) Performed for Rheumatoid Arthritis ([facility]) * URIC ACID BLOOD(Performed 08/24/2008) Performed for Rheumatoid Arthritis ([facility]) * T4 TOTAL(Performed 08/24/2008) Performed for Rheumatoid Arthritis ([facility]) * ERYTHROCYTE SEDIMENTATION RATE(Performed 08/24/2008) Performed for Rheumatoid Arthritis ([facility]) * C-REACTIVE PROTEIN(Performed 08/24/2008) Performed for Rheumatoid Arthritis ([facility]) * COMPREHENSIVE METABOLIC PANEL(Performed 08/24/2008) Performed for Rheumatoid Arthritis ([facility]) * CBC W AUTO DIFFERENTIAL(Performed 08/24/2008) Performed for Rheumatoid Arthritis ([facility]) * ERYTHROCYTE SEDIMENTATION RATE(Performed 07/27/2008) Performed for Rheumatoid Arthritis ([facility]) * C-REACTIVE PROTEIN(Performed 07/27/2008) Performed for Rheumatoid Arthritis ([facility]) * COMPREHENSIVE METABOLIC PANEL(Performed 07/27/2008) Performed for Rheumatoid Arthritis ([facility]) * CBC W AUTO DIFFERENTIAL(Performed 07/27/2008) Performed for Rheumatoid Arthritis ([facility]) * C-REACTIVE PROTEIN(Performed 06/22/2008) * ERYTHROCYTE SEDIMENTATION [...] 6:08 PM CDT Performed at: ?? - [place] [id number], [place] ??[id number] Sports Centre Manager: Sanchez [facility], Phone: ??[phone] Gloria Smith MD LAB - HEMATOLOGY ORD ERABLES [facility] INSURANCE BILL [address] [place] [address] * (ABNORMAL) COMPREHENSIVE METABOLIC PANEL (01/29/2024 10:37 [...] 6:08 PM CDT Performed at: ?? - [place] [id number], [place] ??[id number] Sports Centre Manager: Sanchez COLMENARES, Phone: ??[phone] Gloria Smith MD LAB - CHEMISTRY MARII ARAUJO Performing Organization Address City/[facility]/ZIP Co de Phone Number [facility] INSURANCE BILL [address] [place] [address] * C-REACTIVE PROTEIN (05/29/2023 2:35 PM INSERTING PRESS OPERATOR) Only the most recent of58 resultswithin the time period is included. C-Reactive Protein 0.49 <=0.50 mg/dL [facility] INSURANCE BILL Blood BLOOD SPECIMEN / Unknown 05/29/2023 2:35 PM INSERTING PRESS OPERATOR 05/29/2023 Narrative Resulting Agency Comment Lab Testing performed at: [place] [address] [address] ?? [facility] [phone] Gloria Smith MD LAB - CHEMISTRY MARII ARAUJO Performing Organization Address [facility] Co de Phone Number [facility] INSURANCE BILL [address] [place] [address] * (ABNORMAL) ERYTHROCYTE SEDIMENTATION RATE (05/29/2023 2:35 PM INSERTING PRESS OPERATOR) Only the most recent of87 resultswithin the time period is included. Pathologist [facility] Erythrocyte Sedimentation Rate Westergren 23(H) 0 - 20 MM/HR [facility] INSURANCE BILL Blood BLOOD SPECIMEN / Unknown 05/29/2023 2:35 PM INSERTING PRESS OPERATOR 05/29/2023 Narrative Resulting Agency Comment Lab Testing performed at: [facility] [address] [address] ?? [facility] [phone] Gloria Smith MD LAB - HEMATOLOGY ORD ERABLES Performing Organization Address City/[facility]/ZIP Co de Phone Number [facility] INSURANCE BILL [address] [place] [address] * HEPATITIS SCREEN ACUTE ([facility]) (02/10/2022 9:46 [...] Resulting Agency Comment Lab Testing performed at: [facility] [address] ?? [place] [phone] Gloria Smith MD LAB - CHEMISTRY MARII ARAUJO Performing Organization Address City/[facility] Co de Phone Number [facility] INSURANCE BILL [address] [place] [address] * VITAMIN D 25-HYDROXY (02/10/2022 9:46 AM CDT) [facility] Vitamin D, 25 Hydroxy 52.1 30 - 100 ng/mL [facility] INSURANCE BILL Comment: Vitamin D Status: ?Deficiency ? <20 ? ng/mL ?Insufficiency ?? 20-30 ??ng/mL ?Sufficiency ? 30-100 ng/mL ?Toxicity ? >100 ?ng/mL Blood BLOOD SPECIMEN / Unknown 02/10/2022 9:46 AM CDT 02/10/2022 Narrative Resulting Agency Comment Lab Testing performed at: [facility] [address] ?? [place] [phone] Gloria Smith MD LAB - CHEMISTRY MARII ARAUJO [facility] INSURANCE BILL [address] [place] [address] * QUANTIFERON TB-GOLD (02/10/2022 9:44 AM CDT) Only the most recent of3 resultswithin the time period is included. [facility] QuantiFERON Incubation Incubation performed. [facility] INSURANCE BILL [...] Resulting Agency Comment Lab Testing performed at: [facility] [address] [facility] ??[facility] [phone] Gloria Smith MD LAB - CHEMISTRY MARII ARAUJO [facility] INSURANCE BILL [address] [place] [address] * LAB RESULTS ORDER (12/28/2021) Only the most recent of2 resultswithin the time period is included. 12/28/2021 Narrative 12/28/2021 Ordered by an unspecified provider. Scanned Document LAB - THERAPEUTIC DR BUSH MONITORING ORDERABLES * REF LAB-ABN TEST REFUSAL (02/08/2021 4:45 PM CDT) [facility] Advance Beneficiary Notice Option 3 [facility] INSURANCE BILL Comment: One or more tests [...] Resulting Agency Comment Lab Testing performed at: Maintenance Assistant [address] [place], [place] [address]ox [facility] ??[facility] [phone] Gloria Smith MD LAB - CHEMISTRY ORDAvelino GuaranteachDO Performing Organization Address City/[facility]/ZIP Co de Phone Number [facility] INSURANCE BILL [address] [place] [address] * (ABNORMAL) VITAMIN B12 (02/08/2021 4:45 PM CDT) [facility] Vitamin B12 1,257(H) 232 - 1,245 pg/mL [email or web address] INSURANCE BILL Blood BLOOD SPECIMEN / Unknown 02/08/2021 4:45 PM CDT 02/08/2021 Narrative Resulting Agency Comment Lab Testing performed at: Maintenance Assistant [address] [place] [address] ??[facility] [phone] Gloria Smith MD LAB - CHEMISTRY ORDVirgin PlayDO Performing Organization Address City/[facility]/ZIP Co de Phone Number [facility] INSURANCE BILL [address] [place] [address] * THIOPURINE METHYLTRANSFERASE (07/27/2020 3:14 PM CDT) [facility] TPMT Activity 23.1 Units/mL RBC [facility] INSURANCE BILL Comment: Reference Range: Normal: 15.1 - 26.4 Heterozygous for low TPMT variant: 6.3 - 15.0 Homozygous for low TPMT variant: <6.3 Interpretation [facility] INSURANCE BILL Comment: The above results can be interpreted as Normal for red blood cell Thiopurine Methyltransferase activity. For patients having an intrinsic low level of TPMT, recent RBC transfusion can variably increase their assayed enzymatic activity depending on the amount and circulating half-life of the transfused red blood cells. This test was developed and its performance characteristics determined by [employer]. It has not been cleared or approved by the Food and Drug Administration. This case has been reviewed, approved, interpreted and electronically signed by Go Saenz, PhD, [facility]. Methodology [facility] INSURANCE BILL Comment: Enzymatic Endpoint/Liquid Chromatography - Tandem Mass Spectrometry (LC-MS/MS) Blood BLOOD SPECIMEN / Unknown 07/27/2020 3:14 PM CDT 07/27/2020 Narrative Resulting Agency Comment Lab Testing performed at: [employer] [address] [place] [address] ??[facility] [phone] Gloria Smith MD LAB - CHEMISTRY MARII ARAUJO [facility] Organization Address City/State/ZIP Co de Phone Number [facility] INSURANCE BILL [address] [place] [address] * XR HAND RIGHT 3VW OR MORE (05/10/2020 10:37 AM INSERTING PRESS OPERATOR) Anatomical Region Laterality Modality Wrist / Hand Computed Radiogr aphy Narrative 05/10/2020 10:38 AM INSERTING PRESS OPERATOR Mora Delgado, RT(R) ? 05/10/2020 11:39 AM [...] B27 (02/06/2020 1:32 PM CDT) HLA-B27 Negative [facility] INSURANCE BILL Comment: HLA-B*27 Negative B27 allele interpretation for all loci based on IMGT/HLA database version 3.38 This test was developed and its performance characteristics determined by [facility]. ??It has not been cleared or approved by the Food and Drug Administration. HLA Lab CLIA ID Number [id number] ? . This test was performed using PCR (Polymerase Chain Reaction)/SSOP (Sequence Specific Oligonucleotide Probes) technique. ??SBT (Sequence Based Typing) and/or SSP (Sequence Specific Primers) may be used as supplemental methods when necessary. ??Please contact [facility] Customer Service at if you have any questions. ? . Director of HLA Laboratory Dr Frankie Salinas, PhD Blood BLOOD SPECIMEN / Unknown 02/06/2020 1:32 PM CDT 02/06/2020 Narrative Resulting Agency Comment Lab Testing performed at: [place] [id number] [facility] ??[facility] [phone] Gloria Smith MD LAB - CHEMISTRY MARII AARUJO [facility] INSURANCE BILL [address] [place] [address] * BASIC METABOLIC PANEL (CALCIUM TOTAL) (09/26/2019 [...] Resulting Agency Comment Lab Testing performed at: [address] ?? [facility] [phone] Gloria Smith MD LAB - CHEMISTRY MARII [facility] INSURANCE BILL [address] [place] [address] * DEXA BONE DENSITY 2 SITES (07/09/2019) Anatomical Region Laterality Modality Other 07/09/2019 Narrative 07/09/2019 Ordered by an unspecified provider. Scanned Document DEXA ORDERABLES * XR CERVICAL SPINE 2 OR 3VW (04/18/2019 1:48 PM INSERTING PRESS OPERATOR) Only the most recent of2 resultswithin the time period is included. Anatomical Region Laterality Modality Spine Radiographic Reena ging 04/18/2019 1:56 PM INSERTING PRESS OPERATOR Impressions 04/18/2019 1:59 PM INSERTING PRESS OPERATOR There is moderate disc space narrowing at C5-6 and C6-7 with osteophytosis at C5-6. This could be further evaluated by MRI if indicated. Reading Radiologist: Cristina Avalos MD on 04/18/2019 at 1:59 PM Narrative 04/18/2019 1:59 PM INSERTING PRESS OPERATOR Cervical spine AP and lateral INDICATION: Neck [...] buPROPion (WELLBUTRIN) 100 MG tablet ? ? lyoazkgffbi-nfov-tnqrigxm, PF, (REFRESH OPTIVE ADVANCED PF) 0.5-1-0.5 % SOLN ? ? carvedilol (COREG) 12.5 MG tablet ? ? ferrous sulfate 325 (65 FE) MG tablet ? ? gabapentin (NEURONTIN) 300 MG capsule ? ? Iabiqgnvnjr-Movnpmykt-Rgp C-Mn (GLUCOSAMINE CHONDR 1500 COMPLX PO) ? [...] identified, and marked by Dr. Mirza. ??Responsible hyster driver is not needed due to the [...] Agency Comment [facility] [place] [address] ??[facility] [phone] Isidro Heredia MD LAB - CHEMISTRY ORD ERABLES [facility] INSURANCE BILL [address] [place] [address] * VASCULAR LAB ORDER (05/02/2017) Anatomical Region Laterality Modality Other Isidro Heredia MD VASCULAR LAB ORDERA BLES * XR ANKLE BILAT 2 VIEWS (03/08/2017 4:07 PM INSERTING PRESS OPERATOR) Anatomical Region Laterality Modality Ankle / Foot, Lower Extremity Ra diographic Imaging 03/08/2017 4:14 PM INSERTING PRESS OPERATOR Impressions 03/08/2017 4:15 PM INSERTING PRESS OPERATOR No fracture. Narrative 03/08/2017 4:15 PM INSERTING PRESS OPERATOR Bilateral ankles 2 views INDICATION: Ankle pain [...] CDT 08/24/2016 Narrative Resulting Agency Comment [facility] [address] ??[facility] [phone] Isidro Heredia MD LAB - CHEMISTRY ORD ERABLES [facility] INSURANCE BILL [address] [place] [address] * PO REF LAB-SPECIMEN STATUS REPORT (02/23/2016 1:30 AM CDT) Specimen Status Report NOT NEEDED [facility] INSURANCE BILL Comment: Test could not be performed due to degeneration of specimen. ?TEST: ??[id number] ??Sedimentation Rate-Westergren Ancillary determined the test is not needed 02/23/2016 1:30 AM CDT 02/23/2016 6:29 PM CDT Narrative Resulting Agency Comment [facility] [address] [facility] ??[facility] [phone] Isidro Heredia MD LAB - CHEMISTRY ORD ERABLES Performing Organization Address [facility] Co de Phone Number [facility] INSURANCE BILL [address] [place] [address] * TSH (10/13/2015 3:30 PM CDT) Only the most recent of2 resultswithin the time period is included. TSH 1.06 0.358 - 3.740 uIU/mL [facility] INSURANCE BILL Blood specimen (specimen) BLOOD SPECIMEN / Unknown 10/13/2015 3:30 PM CDT 10/13/2015 6:21 PM CDT Narrative Resulting Agency Comment [facility] [address] ??[facility] [phone] Isidro Heredia MD LAB - CHEMISTRY ORD ERABLES Performing Organization Address City/[facility]/ZIP Co de Phone Number [facility] INSURANCE BILL [address] [place] [address] * T4 TOTAL (10/13/2015 3:30 PM CDT) Only the most recent of2 resultswithin the time period is included. T4 Total 4.9 4.7 - 13.3 ug/dL [facility] INSURANCE BILL Blood specimen (specimen) BLOOD SPECIMEN / Unknown 10/13/2015 3:30 PM CDT 10/13/2015 6:21 PM CDT Narrative Resulting Agency Comment [facility] [address] [facility] ??[place] [phone] Isidro Heredia MD LAB - CHEMISTRY CALEB FIELDS [facility] INSURANCE BILL [address] [place] [address] * CYCLIC CITRUL PEPTIDE ANTIBODY IGG/IGA (CCP) [...] PM CDT Narrative Resulting Agency Comment [facility] [address] ??[facility] [phone] Isidro Heredia MD LAB - SEROLOGY MARII ARAUJO [facility] INSURANCE BILL * RHEUMATOID FACTOR BLOOD QUANTITATIVE (08/12/2014 2:08 PM CDT) Only the most recent of9 resultswithin the time period is included. Rheumatoid Factor 10.2 0.0 - 13.9 IU/mL [facility] INSURANCE BILL Blood specimen (specimen) BLOOD SPECIMEN / Unknown 08/12/2014 2:08 PM CDT 08/12/2014 6:39 PM CDT Narrative Resulting Agency Comment [facility] [address] [facility] ??[facility] [phone] Isidro Heredia MD LAB - CHEMISTRY ORD ERABLES [facility] INSURANCE BILL * KAMI STAINING PATTERNS REFLEXED (PO REF LAB) (08/12/2014 2:03 PM CDT) Only the most recent of2 resultswithin the time period is included. Pathologist [facility] Homogeneous Pattern 1:80 [facility] INSURANCE BILL Nucleolar [...] (Smooth) ? Histone ? Speckled ? Sm, EDITORIAL INTERN, SCL-70, ??SLE,MCTD,Scleroderma,Sjogrens ? SS-A/SS-B ? Nucleolar ?SCL-70, PM-1/SCL ??High titers Scleroderma Poly- ? myositis/Scleroderma Overlap ? Centromere ?? Centromere ?PSS w/Crest syndrome variable ?? 08/12/2014 2:03 PM CDT 08/12/2014 6:39 PM CDT Narrative Resulting Agency Comment [place] [id number] [facility] ??[facility] [phone] Isidro Heredia MD LAB - PATHOLOGY/CYT OLOGY [...] PM CDT Narrative Resulting Agency Comment [facility] [place] [address] [facility] ??[facility] [phone] Isidro Heredia MD LAB - CHEMISTRY ORD [...] ORDERABLES * CARDIAC EKG ORDER (05/22/2014) Isidro Hreedia MD CARDIAC SERVICES OR DERABLES * EMG [...] ABDOMEN PELVIS W CONT (03/25/2013 8:59 AM INSERTING PRESS OPERATOR) Anatomical Region Laterality Modality Chest, Abdomen, Pelvis Computed Tomography 03/25/2013 11:5 3 AM INSERTING PRESS OPERATOR Narrative 03/25/2013 11:57 AM INSERTING PRESS OPERATOR Examination: CT chest with contrast. Indication for [...] - POINT OF CARE (03/24/2013 9:16 AM INSERTING PRESS OPERATOR) Clarity UA POCT Comment:creatine 100 mg/dl Color UA POCT yellow Leukocyte UA negative Negative Nitrite UA POCT negative Negative Urobilinogen UA POCT 0.1 - 1.0 EU/dL Protein UA POCT negative Negative pH UA 6.0 5.0 - 8.0 pH units Blood UA negative Negtive Specific Darden UA POCT 1.015 1.002 - 1.030 Ketone [...] PM CDT Narrative Resulting Agency Comment [facility] [address] ??[facility] [phone] Isidro Heredia MD LAB - CHEMISTRY ORD ERABLES [facility] ACCOUNT BILL * (ABNORMAL) LIPID PROFILE W LDL/HDL (PO REF LAB) (05/15/2011 6:06 PM INSERTING PRESS OPERATOR) Cholesterol 191 100 - 199 mg/dL [facility] [...] BLOOD SPECIMEN / Unknown 05/15/2011 6:06 PM INSERTING PRESS OPERATOR 05/15/2011 9:47 PM INSERTING PRESS OPERATOR Narrative Resulting Agency Comment [facility] [address] ??[facility] [phone] Isidro Heredia MD LAB - CHEMISTRY ORD ERABLES [facility] ACCOUNT BILL * URIC ACID BLOOD (08/24/2008 6:37 PM CDT) Uric Acid 5.1 2.4 - 8.2 mg/dL [facility] INSURANCE BILL BLOOD SPECIMEN / Unknown 08/24/2008 6:37 PM CDT 08/24/2008 9:56 PM CDT Narrative Resulting Agency Comment [facility] [place] [address] ??[place] [phone] Isidro Heredia MD LAB - CHEMISTRY [employer] [facility] INSURANCE BILL * HEMOGLOBIN A1C (08/24/2008 6:37 PM CDT) Hemoglobin A1c 5.6 <7.0 % [facility] INSURANCE BILL Comment: ?Diabetic Adult ?<7.0 ?Healthy Adult ?4.8 - 5.9 ?(DCCT/NGSP) ?[place] Diabetes Association's Summary of Glycemic ?Recommendations for Adults with Diabetes: ?Hemoglobin A1c <7.0%. More stringent glycemic goals ?(A1c <6.0%) may further reduce complications at the ?cost of increased risk of hypoglycemia. BLOOD SPECIMEN / Unknown 08/24/2008 6:37 PM CDT 08/24/2008 9:56 PM CDT Narrative Resulting Agency Comment [facility] [place] [address] ??[place] [phone] Isidro Heredia MD LAB - CHEMISTRY CALEB [employer] [facility] INSURANCE BILL * CYCLIC CITRUL PEPTIDE ANTIBODY IGG (CCP) (08/24/2008 6:37 PM CDT) CCP Antibody IgG 1 0 - 5 U/mL [facility] INSURANCE BILL Comment: ?Negative: ??0 - 5 ?Positive: ? >5 08/24/2008 6:37 PM CDT 08/24/2008 9:56 PM CDT Narrative Resulting Agency Comment [facility] [address] ??[facility] [phone] Isidro Heredia MD LAB - CHEMISTRY ORD ERABLES [facility] INSURANCE BILL Care Teams Board Certified Family Physician Relationship Specialty Start Date End Date Tomas Hyman MD [address] [facility] [address] [place] [address] PCP - General Family Medicine 09/05/18 Isidro Heredia MD Rheumatology 02/09/11
--- OUTSIDE RECORDS SUMMARY | 2024-05-03 08:53 | XMS_ITS | Encounter Summary ---
Author Organization [facility] Address [address] [facility] [place] [address] Care Team Providers Care Billet Heater Operator Name Role Phone Isidro Heredia MD Unavailable [phone] Tomas Hyman MD Primary Care Provider Encounter Details Date Type Department Care Team (Late Contact Info) Description 12/10/2023 Orders Only [facility] - Rheumatology [address] [place] [address] Gloria Smith MD [address] [place] [phone] Rheumatoid arthritis of multiple sites with [...] (Late Contact Info) Description 06/03/2024 1:00 PM GASOLINE PUMP INSTALLER Appointment [facility] - Rheumatology [address] [place] [address] 06/03/2024 2:00 PM GASOLINE PUMP INSTALLER Office Visit [facility] - Rheumatology [address] [place] [address] [place] [address] Gloria Smith MD [address] [place] [address] documented as of this encounter Visit Diagnoses Diagnosis 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
--- OUTSIDE RECORDS SUMMARY | 2024-05-03 08:53 | XMS_ITS | Encounter Summary ---
Author Organization [facility] Address [address] [place] [address] Care Team Providers Care Cork Grinder Name Role Phone Isidro Heredia MD Unavailable Tomas Hyman MD Primary Care Provider [phone] Reason for Visit * Treatment (Elective) - Closed Specialty Diagnoses / Procedures Referred By Lawrence shah Referred To Contact Diagnoses Rheumatoid arthritis without rheumatoid factor, multiple sites (HCC) Procedures OR GOLIMUMAB FOR IV USE 1MG Gloria Smith MD [address] [place] [address] [address] Referral ID Status Reason Start Date Expiration Date Visits Re quested Visits Authorized [id number] Closed 05/18/2023 04/29/2024 8 8 Encounter Details Date Type Department Care Team (Late st Contact Info) Description 11/23/2023 10:52 AM CDT - 11/23/2023 11:59 PM CDT Hospital Encounter [facility] - Rheumatology [address] [place] [address] Gloria Smith MD [address] [place] [address] Rheumatology Discharge Disposition: Home or [...] - 11/23/2023 11:21 AM CDT Discharge Instructions [facility] Rheumatology You have received [...] through Sunday 9-5 call the office at [phone]. After hours or on the weekend call [...] tablet by mouth 2 times daily 09/04/2022 xyaknalyggk-ghvd-wygr sorb, PF, 0.5-1-0.5 % SOLN Instill 1 [...] - 11/23/2023 11:21 AM CDT JOSE Deng [id number] 11/23/2023 Diagnosis: Rheumatoid arthritis without rheumatoid factor, multiple sites (HCC) [M06.09]. Pt denies symptoms of infection or antibiotic use, no open wounds, or recent surgery, or plans for surgery in the next couple of weeks. Pt is aware that we use the 0-10 pain scale to assess discomfort. 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 front desk manager pt signs consent for treatment for [...] st Contact Info) Description 06/03/2024 1:00 PM WHEEL OF FORTUNE DEALER Appointment [facility] - Rheumatology [address] [place] [phone] 06/03/2024 2:00 PM WHEEL OF FORTUNE DEALER Office Visit [facility] - Rheumatology [address] [place] [address] [phone] Gloria Smith MD [address] [place] [phone] documented as of this encounter Visit Diagnoses [...] mL/hr documented in this encounter Care Teams Cork Grinder Relationship Specialty Start Date End Date Tomas Hyman MD [address] [place] [address] PCP - General Family Medicine 09/05/18 Isidro Heredia MD Rheumatology 02/09/11 documented as of this encounter
--- OUTSIDE RECORDS SUMMARY | 2024-05-03 08:53 | XMS_ITS | Referral Summary ---
Author Organization [facility] Address [address] [facility] [place] [address] Care Team Providers Care Credit Cashier Name Role Phone Isidro Heredia MD Unavailable [phone] Tomas Hyman MD Primary Care Provider [phone] Source Comments [facility],non-owned Affiliates and Associated Physician Practices is amultiple site organization consisting of ambulatory clinics and hospital sitesin [place], [place], [place] and [place]. This disclosure is being madepursuant to the Care Everywhere program and may not contain all information available regarding this patient. Last updated 18.[facility] Encounters Date Type Department Care Team Description 04/04/2024 9:45 AM GROUNDWATER CONSULTANT - 04/04/2024 11:59 PM GROUNDWATER CONSULTANT Hospital Encounter [facility] Rheumatology [address] [place] [address] Gloria Smith MD Rheumatology Discharge Disposition: Home or Self Care 02/16/2024 Refill [facility] Rheumatology [address] [place] [address] Gloria Smith MD MEDICATION REFILL 02/08/2024 11:40 AM CDT Office Visit [facility] Rheumatology [address] [place] [address] Gloria Smith MD Rheumatoid arthritis of [...] agreement signed 11/06/2012 Overview (11/06/2012): In media planner dated 10/14/12 Chronic pain syndrome 12/11/2011 Subacromial bursitis 09/04/2011 Anemia 08/30/2009 Osteopenia 08/24/2008 Overview (09/14/2014): Start date 08/13/2007 CT Bone Densitometry GERD (gastroesophageal reflux disease) 9 Rheumatoid arthritis of [facility] sites with negative rheumatoid factor 07/21/2008 Overview (03/07/2015): Dx start date 06/2004, Remicade 10/2004-08/02/2005 inadequate response, Orencia 09/13/2005-11/22/2005 inadequate response, Rituxan 12/06/2005-05/01/2006, Humira 08/13/2006, Methotrexate 08/2004- 02/08/2013 , Xray hands 2004 - shows scattered tiny erosions in MCP joints. Immunizations Name Administration Dates Next Due Home Chef primary monoval ent 12+ yr 0.3mL Purple [...] Comments Blood Pressure 144/83 04/04/2024 10:23 AM GROUNDWATER CONSULTANT Pulse 82 04/04/2024 10:23 AM GROUNDWATER CONSULTANT Temperature 36.8 ??C (98.2 ??F) 04/04/2024 1 0:23 AM GROUNDWATER CONSULTANT Respiratory Rate 16 09/18/2023 3:34 PM CDT Oxygen Saturation 100% 01/30/2023 10: 56 AM CDT Inhaled Oxygen Concentration - - Weight 106.4 kg (234 lb 9.6 oz) 024 10:23 AM GROUNDWATER CONSULTANT Height 177.8 cm (5' 10 ) 02/08/2024 11: 48 AM CDT Body Mass Index 33.66 02/08/2024 11:48 AM CDT Plan of Treatment Upcoming Encounters Date Type Department Care Team (Late st Contact Info) Description 06/03/2024 1:00 PM GROUNDWATER CONSULTANT Appointment [facility] - Rheumatology [address] [place] [address] 06/03/2024 2:00 PM GROUNDWATER CONSULTANT Office Visit [facility] - Rheumatology [address] [place] [address] Gloria Smith MD [address] [place] [phone] Procedures Procedure Name Priority Date/Time Associated [...] 01/29/2024 6:08 PM CDT Performed at: ?? [place] [address] [address] [place], [place] ??[id number] Sample Weaver: Sanchez Wagner [facility], Phone: ??[phone] Gloria Smith MD LAB - CHEMISTRY MARII ARAUJO [facility] INSURANCE BILL [address] [place] [address] * HEPATITIS SCREEN ACUTE ([facility]) (02/10/2022 9:46 [...] Agency Comment Lab Testing performed at: [facility] [address] ?? [place] [id number] Gloria Smith MD LAB - CHEMISTRY MARII ARAUJO [facility] INSURANCE BILL [address] [place] [address] from Last 3 Months or Most Recently Relevant to Health Maintenance Administered Medications Care Teams Credit Cashier Relationship Specialty Start Date End Date Tomas Hyman MD [address] [place] [address] PCP - General Family Medicine 09/05/18 Isidro Heredia MD Rheumatology 02/09/11
--- OUTSIDE RECORDS SUMMARY | 2024-05-03 08:54 | XMS_ITS | Encounter Summary ---
Author Organization [facility] Address [address] [facility] [place] [address] Care Team Providers Care Manager Product Marketing Name Role Phone Isidro Heredia MD Unavailable [phone] Tomas Hyman MD Primary Care Provider [phone] Reason for Visit * Treatment (Elective) - Closed Specialty Diagnoses / Procedures Referred By Lawrence shah Referred To Contact Diagnoses Rheumatoid arthritis of multiple sites with negative rheumatoid factor (HCC) Procedures [place] GOLIMUMAB FOR IV USE 1MG Gloria Smith MD [address] [place] [address] [address] Referral ID Status Reason Start Date Expiration Date Visits Re quested Visits Authorized [id number] Closed 05/22/2022 04/29/2023 12 12 Encounter Details Date Type Department Care Team (Late st Contact Info) Description 01/30/2023 9:31 AM CDT - 01/30/2023 11:59 PM CDT Hospital Encounter [facility] - Rheumatology [address] [place] [address] Gloria Smith MD [address] [place] [address] Rheumatology Discharge Disposition: Home or [...] Body Mass Index 29.13 07/05/2022 10:45 AM OFFICE SPECIALIST documented in this encounter Discharge Instructions * Discharge Instructions* Shelby Higgins RN - 01/30/2023 10:17 AM CDT Discharge Instructions [facility] Rheumatology You have received your infusion [...] Sunday through 01-02 call the office at [phone]. After hours or on the weekend call the exchange at [phone]. If you have had lab work done [...] tablet by mouth 2 times daily 09/04/2022 pexhnpnywhs-eaqz-svgg sorb, PF, 0.5-1-0.5 % SOLN Instill 1 [...] - 01/30/2023 10:19 AM CDT JOSE Deng [id number] 01/30/2023 Diagnosis: Rheumatoid arthritis without rheumatoid factor, [...] st Contact Info) Description 06/03/2024 1:00 PM OFFICE SPECIALIST Appointment [facility] - Rheumatology [address] [place] [phone] 06/03/2024 2:00 PM OFFICE SPECIALIST Office Visit [facility] - Rheumatology [address] [place] [address] Gloria Smith MD [address] [place] [phone] documented as of this encounter Visit Diagnoses [...] mL/hr documented in this encounter Care Teams Manager Product Marketing Relationship Specialty Start Date End Date Tomas Hyman MD [address] [address] [address] [place] [address] PCP - General Family Medicine 09/05/18 Isidro Heredia MD Rheumatology 02/09/11 documented as of this encounter
--- OUTSIDE RECORDS SUMMARY | 2024-05-03 08:54 | XMS_ITS | Encounter Summary ---
Author Organization [facility] Address [address] [facility] [place] [address] Care Team Providers Care Office Services Associate Name Role Phone Isidro Heredia MD Unavailable [phone] Tomas Hyman MD Primary Care Provider [phone] Reason for Visit * Reason Onset Date Comments Rx Medication Issue 06/06/2023 Encounter Details Date Type Department Care Team (Late st Contact Info) Description 06/06/2023 Telephone [facility] Medical [facility] - Rheumatology [address] [place] [address] Gloria Smith MD [address] [place] [phone] Rx Medication Issue Social History Tobacco [...] AM CST Called patient and message given. O CLERK * Telephone Encounter - Gloria Smith MD - 06/06/2023 5:44 PM CST Please inform pt: I spoke with Kamila. will hold mtx while he receives radiation to reduce skin sensitivity. However, if arthritis flares up then he can resume mtx. Will continue folic acid and simponi. O CLERK * Telephone Encounter - Hammad Rodriguez - [...] he canre-start? She needs an answer today. O CLERK documented in this encounter Plan of Treatment Upcoming Encounters Date Type Department Care Team (Late st Contact Info) Description 06/03/2024 1:00 PM BINGO CLERK Appointment [facility] - Rheumatology [address] [place] [address] 06/03/2024 2:00 PM BINGO CLERK Office Visit [facility] - Rheumatology [address] [place] [address] [phone] Gloria Smith MD [address] [place] [phone] documented as of this encounter Visit Diagnoses Not on filedocumented in this encounter Care Teams Office Services Associate Relationship Specialty Start Date End Date Tomas Hyman MD [address] [place], [place] [phone] PCP - General Family Medicine 09/05/18 Isidro Heredia MD Rheumatology 02/09/11 documented as of this encounter
--- OUTSIDE RECORDS SUMMARY | 2024-05-03 08:54 | XMS_ITS | Encounter Summary ---
Author Organization [facility] Address [address] [facility] [place] [address] Care Team Providers Care Outpatient Scheduler Name Role Phone Isidro Heredia MD Unavailable [phone] Tomas Hyman MD Primary Care Provider [phone] Reason for Referral * OP/Amb RFL Auth (Routine) - Pending Review Specialty Diagnoses / Procedures Referred By Contsarahi t Referred To Contact Diagnoses Right shoulder pain, unspecified chronicity Procedures MD DRAIN/INJECT LARGE JOINT/BURSA Gloria Smith MD [address] [place] [phone] Referral ID Status Reason Start Date Expiration Date V isits Requested Visits Authorized [id number] Pending Review 09/18/2023 09/17/2024 1 1 Reason for Visit * Reason Comments Follow-up Osteopenia Encounter Details Date Type Department Care Team (Late st Contact Info) Description 09/18/2023 3:40 PM CDT Office Visit [facility] - Rheumatology [address] [place] [address] Gloria Smith MD [address] [place] [phone] Rheumatoid arthritis of multiple sites with [...] Medical History: Diagnosis Date RA (rheumatoid arthritis) ([facility]LY [facility]) Past Surgical History: Procedure Laterality Date Tonsillectomy [...] results to us. - took alendronate from [id number]. - takes otc vit D daily. ORDERS: [...] st Contact Info) Description 06/03/2024 1:00 PM BAND MACHINE OPERATOR Appointment [facility] - Rheumatology [address] [place] [phone] 06/03/2024 2:00 PM BAND MACHINE OPERATOR Office Visit [facility] - Rheumatology [address] [place] [address] [phone] Gloria Smith MD [address] [place] [phone] Scheduled Orders Name Type Priority Associated Diagnoses [...] Shoulder documented in this encounter Care Teams Outpatient Scheduler Relationship Specialty Start Date End Date Tomas Hyman MD [address] [place] [address] PCP - General Family Medicine 09/05/18 Isidro Heredia MD Rheumatology 02/09/11 documented as of this encounter
--- OUTSIDE RECORDS SUMMARY | 2024-05-03 08:54 | XMS_ITS | Encounter Summary ---
Author Organization [facility] Address [address] [facility] [place] [address] Care Team Providers Care Direct Marketing Manager Name Role Phone Isidro Heredia MD Unavailable [phone] Tomas Hyman MD Primary Care Provider [phone] Reason for Visit * Reason Onset Date Comments MEDICATION REFILL 07/04/2023 Encounter Details Date Type Department Care Team (Late st Contact Info) Description 07/04/2023 Refill [facility] Medical [facility] - Rheumatology [address] [place] [address] Gloria Smith MD [address] [place] [phone] MEDICATION REFILL Social History Tobacco Use [...] Dixie Beard LPN - 07/04/2023 3:12 PM STONE RIGGER NON-BIOLOGIC REFILL REQUEST Last OV: 05/29/2023 Next [...] 0911 02/08/21 1645 CRP 0.49 <0.20 <1 E RIGGER documented in this encounter Plan of Treatment Upcoming Encounters Date Type Department Care Team (Late st Contact Info) Description 06/03/2024 1:00 PM STONE RIGGER Appointment [facility] - Rheumatology [address] [place] [phone] 06/03/2024 2:00 PM STONE RIGGER Office Visit [facility] - Rheumatology [address] [place] [address] [phone] Gloria Smith MD [address] [place] [phone] documented as of this encounter Visit Diagnoses Diagnosis Rheumatoid arthritis of multiple sites with negative rheumatoid factor (HCC) Neuropathy Mononeuritis of unspecified site documented in this encounter Care Teams Direct Marketing Manager Relationship Specialty Start Date End Date Tomas Hyman MD [address] [place] [address] PCP - General Family Medicine 09/05/18 Isidro Heredia MD Rheumatology 02/09/11 documented as of this encounter
--- OUTSIDE RECORDS SUMMARY | 2024-05-03 08:54 | XMS_ITS | Encounter Summary ---
Author Organization [facility] Address [address] [place] [address] Care Team Providers Care First Aid Officer Name Role Phone Isidro Heredia MD Unavailable [phone] Tomas Hyman MD Primary Care Provider [phone] Reason for Visit * Reason Onset Date Comments MEDICATION REFILL 11/27/2022 Encounter Details Date Type Department Care Team (Late st Contact Info) Description 11/27/2022 Refill [facility] Medical [facility] - Rheumatology [address] [place] [address] Gloria Smith MD [address] [place] [phone] MEDICATION REFILL Social History Tobacco Use [...] st Contact Info) Description 06/03/2024 1:00 PM SALESPERSON JEWELRY Appointment [facility] - Rheumatology [address] [place] [address] 06/03/2024 2:00 PM SALESPERSON JEWELRY Office Visit [facility] - Rheumatology [address] [place] [address] Gloria Smith MD [address] [place] [phone] documented as of this encounter Visit Diagnoses Diagnosis Rheumatoid arthritis of multiple sites with negative rheumatoid factor (HCC) Neuropathy Mononeuritis of unspecified site documented in this encounter Care Teams First Aid Officer Relationship Specialty Start Date End Date Tomas Hyman MD [address] [place] [address] PCP - General Family Medicine 09/05/18 Isidro Heredia MD Rheumatology 02/09/11 documented as of this encounter
--- OUTSIDE RECORDS SUMMARY | 2024-05-03 08:54 | XMS_ITS | Encounter Summary ---
Author Organization [facility] Address [address] [facility] [place] [address] Care Team Providers Care Deputy Fire Marshal Name Role Phone Isidro Heredia MD Unavailable [phone] Tomas Hyman MD Primary Care Provider [phone] Encounter Details Date Type Department Care Team (Late Contact Info) Description 11/18/2022 Orders Only [facility] - Rheumatology [address] [facility], [address] [place] [phone] Gloria Smith MD [address] [place] [phone] Social History Tobacco Use Types Packs/Day [...] (Late Contact Info) Description 06/03/2024 1:00 PM FOOD SERVICE ATTENDANT Appointment [facility] - Rheumatology [address] [place] [address] 06/03/2024 2:00 PM FOOD SERVICE ATTENDANT Office Visit [facility] - Rheumatology [address] [place] [address] Gloria Smith MD [address] [place] [phone] documented as of this encounter Visit Diagnoses Not on filedocumented in this encounter Care Teams Deputy Fire Marshal Relationship Specialty Start Date End Date Tomas Hyman MD [address] [place] [address] PCP - General Family Medicine 09/05/18 Isidro Heredia MD Rheumatology 02/09/11 documented as of this encounter
--- OUTSIDE RECORDS SUMMARY | 2024-05-03 08:54 | XMS_ITS | Encounter Summary ---
Author Organization [facility] Address [address] [facility] [place] [address] Care Team Providers Care Automotive Parts Interpreter Name Role Phone Isidro Heredia MD Unavailable [phone] Tomas Hyman MD Primary Care Provider [phone] Encounter Details Date Type Department Care Team [...] st Contact Info) Description 06/03/2024 1:00 PM SURVEY RODMAN Appointment [facility] Medical [facility] - Rheumatology [address] [place] [address] 06/03/2024 2:00 PM SURVEY RODMAN Office Visit [facility] Medical [facility] - Rheumatology [address] [place] [address] Gloria Smith MD [address] [place] [phone] documented as of this encounter Visit Diagnoses Not on filedocumented in this encounter Care Teams Automotive Parts Interpreter Relationship Specialty Start Date End Date Tomas Hyman MD [address] [place] [address] PCP - General Family Medicine 09/05/18 Isidro Heredia MD Rheumatology 02/09/11 documented as of this encounter
--- OUTSIDE RECORDS SUMMARY | 2024-05-03 08:54 | XMS_ITS | Encounter Summary ---
Author Organization [facility] Address [address] [facility] [place] [address] Care Team Providers Care Hogshead Opener Name Role Phone Isidro Heredia MD Unavailable Tomas Hyman MD Primary Care Provider [phone] Encounter Details Date Type Department Care Team (Late Contact Info) Description 07/20/2023 Orders Only [facility] - Rheumatology [address] [place] [address] Gloria Smith MD [address] [place] [phone] Rheumatoid arthritis of multiple sites with [...] (Late Contact Info) Description 06/03/2024 1:00 PM BUSINESS ATTORNEY Appointment [facility] - Rheumatology [address] [place] [address] 06/03/2024 2:00 PM BUSINESS ATTORNEY Office Visit [facility] - Rheumatology [address] [place] [address] Glroia Smith MD [address] [place] [address] documented as of this encounter Visit Diagnoses Diagnosis Rheumatoid arthritis of multiple sites with negative rheumatoid factor (HCC) documented in this encounter Care Teams Hogshead Opener Relationship Specialty Start Date End Date Tomas Hyman MD [address] [place] [address] PCP - General Family Medicine 09/05/18 Isidro Heredia MD Rheumatology 02/09/11 documented as of this encounter
--- OUTSIDE RECORDS SUMMARY | 2024-05-03 08:54 | XMS_ITS | Encounter Summary ---
Author Organization [facility] Address [address] [facility] [place] [address] Care Team Providers Care Inspector Boiler Name Role Phone Isidro Heredia MD Unavailable [phone] Tomas Hyman MD Primary Care Provider [phone] Reason for Visit * Treatment (Elective) - Closed Specialty Diagnoses / Procedures Referred By Lawrence shah Referred To Contact Diagnoses Rheumatoid arthritis of multiple sites with negative rheumatoid factor (HCC) Procedures [place] GOLIMUMAB FOR IV USE 1MG Gloria Smith MD [address] [place] [address] [address] Referral ID Status Reason Start Date Expiration Date Visits Re quested Visits Authorized [id number] Closed 05/22/2022 04/29/2023 12 12 Encounter Details Date Type Department Care Team (Late st Contact Info) Description 11/29/2022 9:06 AM CDT - 11/29/2022 11:59 PM CDT Hospital Encounter [facility] Medical [facility] - Rheumatology [address] [place] [address] Gloria Smith MD [address] [place] [address] Rheumatology Discharge Disposition: Home or [...] Body Mass Index 28.44 07/05/2022 10:45 AM MANAGER OF TRAINING documented in this encounter Discharge Instructions * Discharge Instructions* Shelby Higgins RN - 11/29/2022 10:10 AM CDT Discharge Instructions [facility] Rheumatology You have received your [...] Sunday through 01-02 call the office at [phone]. After hours or on the weekend call the exchange at [phone]. If you have had lab work done [...] tablet by mouth 2 times daily 09/04/2022 kydcgiwhrjs-fpqv-htkh sorb, PF, 0.5-1-0.5 % SOLN Instill 1 [...] Progress Notes * Shelby Higgins, RN - 11/29/2022 10:10 AM CDT JOSE Allred Deng [id number] 11/29/2022 Diagnosis: Rheumatoid arthritis without rheumatoid factor, multiple sites (CMS/HCC) [M06.09]. Pt denies symptoms of infection or antibiotic use, no open wounds, or recent surgery, or plans for surgery in the next couple of weeks. Pt is aware that we use the 0-10 pain scale to assess discomfort. 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 service desk director pt signs consent for treatment for [...] Info) Description 06/03/2024 1:00 PM MANAGER OF TRAINING Appointment [facility] - Rheumatology [address] [place] [address] [phone] 06/03/2024 2:00 PM MANAGER OF TRAINING Office Visit [facility] - Rheumatology [address] [place] [address] Gloria Smith MD [address] [place] [phone] documented as of this encounter Visit Diagnoses [...] mL/hr documented in this encounter Care Teams Inspector Boiler Relationship Specialty Start Date End Date Tomas Hyman MD [address] [address] [address] [place] [address] PCP - General Family Medicine 09/05/18 Isidro Heredia MD Rheumatology 02/09/11 documented as of this encounter
--- OUTSIDE RECORDS SUMMARY | 2024-05-03 08:54 | XMS_ITS | Encounter Summary ---
Author Organization [facility] Address [address] [facility] [place] [address] Care Team Providers Care Rug Sizer Name Role Phone Isidro Heredia MD Unavailable [phone] Tomas Hyman MD Primary Care Provider [phone] Encounter Details Date Type Department Care Team (Late Contact Info) Description 09/14/2023 Orders Only [facility] - Rheumatology [address] [place] [address] Gloria Smith MD [address] [place] [phone] Rheumatoid arthritis of multiple sites with [...] (Late Contact Info) Description 06/03/2024 1:00 PM SCHOOL BUS MONITOR Appointment [facility] - Rheumatology [address] [place] [address] 06/03/2024 2:00 PM SCHOOL BUS MONITOR Office Visit [facility] - Rheumatology [address] [place] [address] [phone] Gloria Smith MD [address] [place] [address] documented as of this encounter [...] Agency Comment Lab Testing performed at: [facility] [address] [facility] ??[facility] [id number] Gloria Smith MD LAB - CHEMISTRY MARII ARAUJO [facility] INSURANCE BILL [address] [place] [address] * (ABNORMAL) CBC WITH DIFFERENTIAL (09/17/2023 2:54 [...] Agency Comment Lab Testing performed at: [facility] [address] [facility] ??[facility] [id number] Gloria Smith MD LAB - HEMATOLOGY ORD ERABLES [facility] INSURANCE BILL [address] [place] [address] documented in this encounter Visit Diagnoses Diagnosis Rheumatoid arthritis of multiple sites with negative rheumatoid factor (HCC) documented in this encounter Care Teams Rug Sizer Relationship Specialty Start Date End Date Tomas Hyman MD [address] [facility] [address] [place] [address] PCP - General Family Medicine 09/05/18 Isidro Heredia MD Rheumatology 02/09/11 documented as of this encounter
--- OUTSIDE RECORDS SUMMARY | 2024-05-03 08:54 | XMS_ITS | Encounter Summary ---
Author Organization [facility] Address [address] [facility] [place] [address] Care Team Providers Care Police Artist Name Role Phone Isidro Heredia MD Unavailable [phone] Tomas Hyman MD Primary Care Provider [phone] Reason for Visit * Reason Comments Rheumatoid Arthritis Follow-up Encounter Details Date Type Department Care Team (Late st Contact Info) Description 01/30/2023 10:40 AM CDT Office Visit [facility] - Rheumatology [address] [place] [address] Gloria Smith MD [address] [place] [phone] Rheumatoid arthritis of multiple sites with [...] History: Diagnosis Date ??? RA (rheumatoid arthritis) ([facility]) Past Surgical History: Procedure Laterality [...] results to us. - took alendronate from [id number]. documented in this encounter Plan of Treatment Upcoming Encounters Date Type Department Care Team (Late st Contact Info) Description 06/03/2024 1:00 PM AUTO SERVICE REPRESENTATIVE Appointment [facility] - Rheumatology [address] [place] [address] 06/03/2024 2:00 PM AUTO SERVICE REPRESENTATIVE Office Visit [facility] - Rheumatology [address] [place] [address] Gloria Smith MD [address] [place] [phone] documented as of this encounter Procedures [...] Resulting Agency Comment Lab Testing performed at: [place] [address] [address] ?? [facility] [id number] Gloria Smith MD LAB - CHEMISTRY ORDE VAN [facility] INSURANCE BILL [address] [place] [address] * (ABNORMAL) CBC WITH DIFFERENTIAL (01/30/2023 11:58 [...] x10E9/L [facility] INSURANCE BILL Comment:MPV FL BLOOD ([facility]) 1 1.5 fl 9.4-12.9 Granulocytes % 51.4 [...] Resulting Agency Comment Lab Testing performed at: [address] ?? [facility] [id number] Gloria Smith MD LAB - HEMATOLOGY ORD ERABLES [facility] INSURANCE BILL [address] [place] [address] documented in this encounter Visit Diagnoses Diagnosis Rheumatoid arthritis of multiple sites with negative rheumatoid factor (HCC)- Primary documented in this encounter Care Teams Police Artist Relationship Specialty Start Date End Date Tomas Hyman MD [address] [place] [address] PCP - General Family Medicine 09/05/18 Isidro Heredia MD Rheumatology 02/09/11 documented as of this encounter
--- OUTSIDE RECORDS SUMMARY | 2024-05-03 08:54 | XMS_ITS | Encounter Summary ---
Author Organization [facility] Address [address] [place] [address] Care Team Providers Care Public Safety Director Name Role Phone Isidro Heredia MD Unavailable [phone] Tomas Hyman MD Primary Care Provider [phone] Encounter Details Date Type Department Care Team [...] st Contact Info) Description 06/03/2024 1:00 PM INFECTION PREVENTIONIST Appointment [facility] Medical [facility] - Rheumatology [address] [place] [address] 06/03/2024 2:00 PM INFECTION PREVENTIONIST Office Visit [facility] - Rheumatology [address] [place] [address] Gloria Smith MD [address] [place] [phone] documented as of this encounter Visit Diagnoses Not on filedocumented in this encounter Care Teams Public Safety Director Relationship Specialty Start Date End Date Tomas Hyman MD [address] [place] [address] PCP - General Family Medicine 09/05/18 Isidro Heredia MD Rheumatology 02/09/11 documented as of this encounter
--- OUTSIDE RECORDS SUMMARY | 2024-05-03 08:54 | XMS_ITS | Encounter Summary ---
Author Organization [facility] Address [address] [facility] [place] [address] Care Team Providers Care Dance Entertainer Name Role Phone Isidro Heredia MD Unavailable [phone] Tomas Hyman MD Primary Care Provider [phone] Encounter Details Date Type Department Care Team [...] st Contact Info) Description 06/03/2024 1:00 PM LOCK AND DAM EQUIPMENT REPAIRER Appointment [facility] Medical [facility] - Rheumatology [address] [place] [address] 06/03/2024 2:00 PM LOCK AND DAM EQUIPMENT REPAIRER Office Visit [facility] - Rheumatology [address] [place] [address] Gloria Smith MD [address] [place] [phone] documented as of this encounter Visit Diagnoses Not on filedocumented in this encounter Care Teams Dance Entertainer Relationship Specialty Start Date End Date Tomas Hyman MD [address] [place] [address] PCP - General Family Medicine 09/05/18 Isidro Heredia MD Rheumatology 02/09/11 documented as of this encounter
--- OUTSIDE RECORDS SUMMARY | 2024-05-03 08:54 | XMS_ITS | Encounter Summary ---
Author Organization [facility] Address [address] [facility] [place] [address] Care Team Providers Care Manager Membership Name Role Phone Isidro Heredia MD Unavailable [phone] Tomas Hyman MD Primary Care Provider [phone] Reason for Referral * OP/Amb RFL Auth (Routine) - Pending Review Specialty Diagnoses / Procedures Referred By Contsarahi t Referred To Contact Diagnoses Right shoulder pain, unspecified chronicity Procedures MA DRAIN/INJECT LARGE JOINT/BURSA Gloria Smith MD [address] [place] [address] Referral ID Status Reason Start Date Expiration Date V isits Requested Visits Authorized [id number] Pending Review 05/29/2023 05/28/2024 1 1 NDER INSPECTOR Reason for Visit * Reason Comments Arthritis Encounter Details Date Type Department Care Team (Late st Contact Info) Description 05/29/2023 1:40 PM CYLINDER INSPECTOR Office Visit [facility] - Rheumatology [address] [place] [address] Gloria Smith MD [facility] [place] [address] Rheumatoid arthritis of multiple sites [...] improve after steroid injection and simponi infusion. NDER INSPECTOR * Gloria Smith MD - 05/29/2023 1:42 [...] radiation therapy. Will schedule follow up with [facility] Dermatology at [address] [place] [address]. Having more back pain and stiffness for [...] History: Diagnosis Date ??? RA (rheumatoid arthritis) ([facility]) Past Surgical History: Procedure Laterality [...] results to us. - took alendronate from [id number]. NDER INSPECTOR documented in this encounter Plan of Treatment Upcoming Encounters Date Type Department Care Team (Late st Contact Info) Description 06/03/2024 1:00 PM CYLINDER INSPECTOR Appointment [facility] - Rheumatology [address] [place] [address] 06/03/2024 2:00 PM CYLINDER INSPECTOR Office Visit [facility] - Rheumatology [address] [place] [address] Gloria Smith MD [address] [place] [phone] Scheduled Orders Name Type Priority Associated [...] C-REACTIVE PROTEIN Routine 05/29/2023 2: 35 PM CYLINDER INSPECTOR Rheumatoid arthritis of multiple sites with negative rheumatoid factor (HCC) ERYTHROCYTE SEDIMENTATION RATE Routine 05/29/2023 2:35 PM CYLINDER INSPECTOR Rheumatoid arthritis of multiple sites with negative rheumatoid factor (HCC) CBC W AUTO DIFFERENTIAL Routine 05/29/2023 2:35 PM CYLINDER INSPECTOR Rheumatoid arthritis of multiple sites with negative rheumatoid factor (HCC) COMPREHENSIVE METABOLIC PANEL Routine 05/29/2023 2:35 PM CYLINDER INSPECTOR Rheumatoid arthritis of multiple sites with negative [...] 01/29/2024 6:08 PM CDT Performed at: ?? [facility] [place] [address] [address] , [place], [place] ??[id number] Plastic Tool Maker: Sanchez Wagner [facility], Phone: ??[phone] Gloria Smiht MD LAB - CHEMISTRY MARII ARAUJO [facility] INSURANCE BILL [address] [place] [address] * (ABNORMAL) CBC WITH DIFFERENTIAL (01/29/2024 10:37 [...] 6:08 PM CDT Performed at: ??01 - [place] [address] [place], [place] ??[id number] Plastic Tool Maker: Sanchez Wagner [facility], Phone: ??[phone] Gloria Smith MD LAB - HEMATOLOGY ORD ERABLES [facility] INSURANCE BILL [address] [place] [address] * (ABNORMAL) COMPREHENSIVE METABOLIC PANEL (09/17/2023 2:54 [...] Resulting Agency Comment Lab Testing performed at: [facility] [address] [facility] ??On license of [facility] [id number] Gloria Smith MD LAB - CHEMISTRY MARII ARAUJO [facility] INSURANCE BILL [address] [place] [address] * (ABNORMAL) CBC WITH DIFFERENTIAL (09/17/2023 2:54 [...] Resulting Agency Comment Lab Testing performed at: [facility] [address] [facility] ??On license of [facility] [id number] Gloria Smith MD LAB - HEMATOLOGY ORD ERABLES [facility] INSURANCE BILL [address] [place] [address] * COMPREHENSIVE METABOLIC PANEL (07/12/2023 3:20 PM [...] Agency Comment Lab Testing performed at: [facility] [address] ??On license of [facility] [id number] Gloria Smith MD LAB - CHEMISTRY MARII ARAUJO [facility] INSURANCE BILL [address] [place] [address] * CBC WITH DIFFERENTIAL (07/12/2023 3:20 PM [...] Agency Comment Lab Testing performed at: [facility] [address] [facility] ??On license of [facility] [id number] Gloria Smith MD LAB - HEMATOLOGY ORD ERABLES [facility] INSURANCE BILL [address] [place] [address] * C-REACTIVE PROTEIN (05/29/2023 2:35 PM CYLINDER INSPECTOR) C-Reactive Protein 0.49 <=0.50 mg/dL [facility] INSURANCE BILL Blood BLOOD SPECIMEN / Unknown 05/29/2023 2:35 PM CYLINDER INSPECTOR 05/29/2023 Narrative Resulting Agency Comment Lab Testing performed at: [place] [address] [address] ?? [place] [id number] Gloria Smith MD LAB - CHEMISTRY MARII ARAUJO Performing Organization Address [facility] Co de Phone Number [facility] INSURANCE BILL [address] [place] [address] * (ABNORMAL) ERYTHROCYTE SEDIMENTATION RATE (05/29/2023 2:35 PM CYLINDER INSPECTOR) Erythrocyte Sedimentation Rate Westergren 23(H) 0 - 20 MM/HR [facility] INSURANCE BILL Blood BLOOD SPECIMEN / Unknown 05/29/2023 2:35 PM CYLINDER INSPECTOR 05/29/2023 Narrative Resulting Agency Comment Lab Testing performed at: [facility] [address] [address] ?? [place] [id number] Gloria Smith MD LAB - HEMATOLOGY ORD ERABLES Performing Organization Address City/[facility]/ZIP Co de Phone Number [facility] INSURANCE BILL [address] [place] [address] * (ABNORMAL) COMPREHENSIVE METABOLIC PANEL (05/29/2023 2:35 PM CYLINDER INSPECTOR) Glucose 107(H) 70 - 105 mg/dL [facility] [...] BLOOD SPECIMEN / Unknown 05/29/2023 2:35 PM CYLINDER INSPECTOR 05/29/2023 Narrative Resulting Agency Comment Lab Testing performed at: [address] ?? [facility] [id number] Gloria Smith MD LAB - CHEMISTRY MARII ARAUJO [facility] INSURANCE BILL [address] [place] [address] * (ABNORMAL) CBC WITH DIFFERENTIAL (05/29/2023 2:35 PM CYLINDER INSPECTOR) Pathologist [facility] WBC 8.7 4.0 - 10.7 x10E9/L [facility] [...] BLOOD SPECIMEN / Unknown 05/29/2023 2:35 PM CYLINDER INSPECTOR 05/29/2023 Narrative Resulting Agency Comment Lab Testing performed at: [place] [address] [address] ?? [place] [id number] Gloria Smith MD LAB - HEMATOLOGY ORD ERABLES [facility] INSURANCE BILL [address] [place] [address] documented in this encounter Visit Diagnoses Diagnosis [...] at 1700 $ Given 05/29/2023 8:34 AM CYLINDER INSPECTOR Right Shoulder methylPREDNISolone acetate (DEPO-Medrol) injection 40 mg 40 mg, Intra-articular, ONCE, 1 dose, On Sun05/29/23 at 1700 $ Given 05/29/2023 8:36 AM CYLINDER INSPECTOR 40 mg Ri ght Shoulder documented in this encounter Care Teams Manager Membership Relationship Specialty Start Date End Date Tomas Hyman MD [address] [facility] [address] [place] [address] PCP - General Family Medicine 09/05/18 Isidro Heredia MD Rheumatology 02/09/11 documented as of this encounter
--- OUTSIDE RECORDS SUMMARY | 2024-05-03 08:54 | XMS_ITS | Encounter Summary ---
Author Organization [facility] Address [address] [place] [address] Care Team Providers Care Supervisor Steffen House Name Role Phone Isidro Heredia MD Unavailable [phone] Tomas Hyman MD Primary Care Provider [phone] Reason for Visit * Reason Onset Date Comments General 11/28/2022 Encounter Details Date Type Department Care Team (Late st Contact Info) Description 11/28/2022 Telephone [facility] Medical [facility] - Rheumatology [address] [place] [address] Gloria Smith MD [address] [place] [phone] General Social History Tobacco Use Types [...] st Contact Info) Description 06/03/2024 1:00 PM LAST DIPPER Appointment [facility] - Rheumatology [address] [place] [phone] 06/03/2024 2:00 PM LAST DIPPER Office Visit [facility] - Rheumatology [address] [place] [address] Gloria Smith MD [address] [place] [phone] documented as of this encounter Procedures Procedure [...] Resulting Agency Comment Lab Testing performed at: [facility] [place] [address] ?? [place] [id number] Gloria Smith MD LAB - CHEMISTRY MARII ARAUJO [facility] INSURANCE BILL [address] [place] [address] * ERYTHROCYTE SEDIMENTATION RATE (11/29/2022 9:11 AM CDT) Erythrocyte Sedimentation Rate Westergren 11 0 - 20 MM/HR [facility] INSURANCE BILL Blood BLOOD SPECIMEN / Unknown 11/29/2022 9:11 AM CDT 11/29/2022 Narrative Resulting Agency Comment Lab Testing performed at: [facility] [address] [address] ?? [facility] [id number] Gloria Smith MD LAB - HEMATOLOGY ORD ERABLES [facility] INSURANCE BILL [address] [place] [address] * COMPREHENSIVE METABOLIC PANEL (11/29/2022 9:11 AM [...] Comment Lab Testing performed at: [facility] [address] [facility] [phone] Gloria Smith MD LAB - CHEMISTRY MARII ARAUJO [facility] INSURANCE BILL [address] [place] [address] * (ABNORMAL) CBC WITH DIFFERENTIAL (11/29/2022 9:11 [...] [facility] INSURANCE BILL Comment:MPV FL BLOOD ([facility]) 1 1.3 fl 9.4-12.9 Granulocytes % 35.2(L) [...] Comment Lab Testing performed at: [facility] [address] [facility] ?? [facility] [id number] Gloria Smith MD LAB - HEMATOLOGY ORD ERABLES [facility] INSURANCE BILL [address] [place] [address] documented in this encounter Visit Diagnoses Diagnosis Rheumatoid arthritis of multiple sites with negative rheumatoid factor (HCC)- Primary documented in this encounter Care Teams Supervisor Steffen House Relationship Specialty Start Date End Date Tomas Hyman MD [address] [facility] [address] [place] [address] PCP - General Family Medicine 09/05/18 Isidro Heredia MD Rheumatology 02/09/11 documented as of this encounter
--- OUTSIDE RECORDS SUMMARY | 2024-05-03 08:54 | XMS_ITS | Encounter Summary ---
Author Organization [facility] Address [address] [facility] [place] [address] Care Team Providers Care Manager Inside Name Role Phone Isidro Heredia MD Unavailable [phone] Tomas Hyman MD Primary Care Provider Reason for Visit * Reason Onset Date Comments MEDICATION REFILL 03/23/2023 Encounter Details Date Type Department Care Team (Late st Contact Info) Description 03/23/2023 Refill [facility] Medical [facility] - Rheumatology [address] [place] [address] Gloria Smith MD [address] [place] [phone] MEDICATION REFILL Social History Tobacco Use [...] Last Eye exam (if refill for hydroxychloroquine): LINING BLOCKER documented in this encounter Plan of Treatment Upcoming Encounters Date Type Department Care Team (Late st Contact Info) Description 06/03/2024 1:00 PM HAT LINING BLOCKER Appointment [facility] - Rheumatology [address] [place] [address] 06/03/2024 2:00 PM HAT LINING BLOCKER Office Visit [facility] - Rheumatology [address] [place] [address] Gloria Smith MD [address] [place] [phone] documented as of this encounter Visit Diagnoses Diagnosis Chronic neck pain Cervicalgia Chronic back pain, unspecified back location, unspecified back pain laterality Rheumatoid arthritis of 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
--- OUTSIDE RECORDS SUMMARY | 2024-05-03 08:54 | XMS_ITS | Encounter Summary ---
Author Organization [facility] Address [address] [facility] [place] [address] Care Team Providers Care After School Teacher Name Role Phone Isidro Heredia MD Unavailable [phone] Tomas Hyman MD Primary Care Provider [phone] Reason for Visit * Treatment (Elective) - Closed Specialty Diagnoses / Procedures Referred By Lawrence shah Referred To Contact Diagnoses Rheumatoid arthritis without rheumatoid factor, multiple sites (HCC) Procedures MI GOLIMUMAB FOR IV USE 1MG Gloria Smith MD [address] [place] [address] [address] Referral ID Status Reason Start Date Expiration Date Visits Re quested Visits Authorized [id number] Closed 05/18/2023 04/29/2024 8 8 Encounter Details Date Type Department Care Team (Late st Contact Info) Description 07/30/2023 1:51 PM CDT - 07/30/2023 11:59 PM CDT Hospital Encounter [facility] Medical [facility] - Rheumatology [address] [place] [address] Gloria Smith MD [address] [place] [address] Discharge Disposition: Home or Self [...] - 07/30/2023 2:21 PM CDT Discharge Instructions [facility] Rheumatology You have received your [...] Sunday through Sunday-5 call the office at [phone]. After hours or on the weekend call the exchange at [phone]. If you have had lab work done [...] tablet by mouth 2 times daily 09/04/2022 yarlaebcavb-tgiz-tktu sorb, PF, 0.5-1-0.5 % SOLN Instill 1 [...] 07/30/2023 2:31 PM CDT JOSE Chalino Deng [id number] 07/30/2023 Diagnosis: Rheumatoid arthritis without rheumatoid factor, multiple sites (HCC) [M06.09]. Pt denies symptoms of infection or antibiotic use, no open wounds, or recent surgery, or plans for surgery in the next couple of weeks. Pt is aware that we use the 0-10 pain scale to assess discomfort. 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 desktop analyst pt signs consent for treatment for this [...] st Contact Info) Description 06/03/2024 1:00 PM SUMMER CAMP COUNSELOR Appointment [facility] - Rheumatology [address] [place] [phone] 06/03/2024 2:00 PM SUMMER CAMP COUNSELOR Office Visit [facility] - Rheumatology [address] [place] [address] Gloria Smith MD [address] [place] [phone] documented as of this encounter Visit Diagnoses [...] mL/hr documented in this encounter Care Teams After School Teacher Relationship Specialty Start Date End Date Tomas Hyman MD [address] [place] [address] [address] [place] [address] PCP - General Family Medicine 09/05/18 Isidro Heredia MD Rheumatology 02/09/11 documented as of this encounter
--- OUTSIDE RECORDS SUMMARY | 2024-05-03 08:54 | XMS_ITS | Encounter Summary ---
Author Organization [facility] Address [address] [place] [address] Care Team Providers Care Tire Rebuilder Name Role Phone Isidro Heredia MD Unavailable [phone] oTmas Hyman MD Primary Care Provider [phone] Encounter Details Date Type Department Care Team [...] st Contact Info) Description 06/03/2024 1:00 PM CLIENT FINANCE ANALYST Appointment [facility] Medical [facility] - Rheumatology [address] [place] [address] 06/03/2024 2:00 PM CLIENT FINANCE ANALYST Office Visit [facility] Medical [facility] - Rheumatology [address] [place] [address] Gloira Smith MD [address] [place] [phone] documented as of this encounter Visit Diagnoses Not on filedocumented in this encounter Care Teams Tire Rebuilder Relationship Specialty Start Date End Date Tomas Hyman MD [address] [place] [address] PCP - General Family Medicine 09/05/18 Isidro Heredia MD Rheumatology 02/09/11 documented as of this encounter
--- OUTSIDE RECORDS SUMMARY | 2024-05-03 08:54 | XMS_ITS | Encounter Summary ---
Author Organization [facility] Address [address] [facility] [place] [address] Care Team Providers Care Bulk Delivery Driver Name Role Phone Isidro Heredia MD Unavailable [phone] Tomas Hyman MD Primary Care Provider [phone] Reason for Visit * Treatment (Elective) - Closed Specialty Diagnoses / Procedures Referred By Lawrence shah Referred To Contact Diagnoses Rheumatoid arthritis of multiple sites with negative rheumatoid factor (HCC) Procedures AK GOLIMUMAB FOR IV USE 1MG Gloria Smith MD [address] [place] [address] [address] Referral ID Status Reason Start Date Expiration Date Visits Re quested Visits Authorized [id number] Closed 05/22/2022 04/29/2023 12 12 Encounter Details Date Type Department Care Team (Late st Contact Info) Description 03/28/2023 11:00 AM STAGE RIGGER - 03/28/2023 11:59 PM STAGE RIGGER Hospital Encounter [facility] Medical [facility] - Rheumatology [address] [place] [address] Gloria Smith MD [address] [place] [address] Rheumatology Discharge Disposition: Home or [...] Comments Blood Pressure 125/72 03/28/2023 11:34 AM STAGE RIGGER Pulse 73 03/28/2023 11:34 AM STAGE RIGGER Temperature 36.7 ??C (98 ??F) 03/28/2023 11: 34 AM STAGE RIGGER Respiratory Rate - - Oxygen Saturation - - Inhaled Oxygen Concentration - - Weight 94.7 kg (208 lb 12.8 oz) 023 11:34 AM STAGE RIGGER Height - - Body Mass Index 29.96 01/30/2023 10:56 AM CDT documented in this encounter Discharge Instructions * Discharge Instructions* Shelby Higgins RN - 03/28/2023 11:39 AM STAGE RIGGER Discharge Instructions [facility] Rheumatology You have received your infusion [...] Sunday through Sunday5 call the office at [phone]. After hours or on the weekend call [...] have chosen [facility] as your Provider E RIGGER documented in this encounter Medications at Time of Discharge Medication Sig Dispensed Refills Start Date End Date aspirin EC (ECOTRIN) 81 MG tablet Take 1 (one) tablet by mouth once daily 90 tablet 11/14/2021 atorvastatin (LIPITOR) 40 MG tablet Take 1 (one) tablet by mouth at bedtime buPROPion (Wellbutrin) 100 MG tablet Take 1 (one) tablet by mouth 2 times daily 09/04/2022 luaripnlhbb-ynzq-wmrn sorb, PF, 0.5-1-0.5 % SOLN Instill 1 [...] 03/28/2023 11:46 AM CST JOSE Chalino Deng [id number] 03/28/2023 Diagnosis: Rheumatoid arthritis without rheumatoid factor, multiple sites (CMS/HCC) [M06.09]. Pt denies symptoms of infection or antibiotic use, no open wounds, or recent surgery, or plans for surgery in the next couple of weeks. Pt is aware that we use the 0-10 pain scale to assess discomfort. 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 front end ui developer pt signs consent for treatment for [...] treatment? Q 56 days Shelby Higgins RN E RIGGER documented in this encounter Plan of Treatment Upcoming Encounters Date Type Department Care Team (Late st Contact Info) Description 06/03/2024 1:00 PM STAGE RIGGER Appointment [facility] - Rheumatology [address] [place] [address] [phone] 06/03/2024 2:00 PM STAGE RIGGER Office Visit [facility] - Rheumatology [address] [place] [address] [phone] Gloria Smith MD [address] [place] [phone] documented as of this encounter Visit Diagnoses [...] filter. $ New Bag/Syringe 03/28/2023 11:44 AM STAGE RIGGER 180 mg 200 mL/hr documented in this encounter Care Teams Bulk Delivery Driver Relationship Specialty Start Date End Date Tomas Hyman MD [address] [address] [address] [place] [address] PCP - General Family Medicine 09/05/18 Isidro Heredia MD Rheumatology 02/09/11 documented as of this encounter
--- OUTSIDE RECORDS SUMMARY | 2024-05-03 08:54 | XMS_ITS | Encounter Summary ---
Author Organization [facility] Address [address] [facility] [place] [address] Care Team Providers Care Wire Drawing Setter Name Role Phone Isidro Heredia MD Unavailable [phone] Tomas Hyman MD Primary Care Provider [phone] Reason for Visit * Treatment (Elective) - Closed Specialty Diagnoses / Procedures Referred By Lawrence shah Referred To Contact Diagnoses Rheumatoid arthritis without rheumatoid factor, multiple sites (HCC) Procedures ND GOLIMUMAB FOR IV USE 1MG Gloria Smith MD [address] [place] [address] [address] Referral ID Status Reason Start Date Expiration Date Visits Re quested Visits Authorized [id number] Closed 05/18/2023 04/29/2024 8 8 Encounter Details Date Type Department Care Team (Late st Contact Info) Description 05/29/2023 12:47 PM COMPOSING MACHINE OPERATOR - 05/29/2023 11:59 PM COMPOSING MACHINE OPERATOR Hospital Encounter [facility] Medical [facility] - Rheumatology [address] [place] [address] Gloria Smith MD [address] [place] [address] Rheumatology Discharge Disposition: Home or [...] Comments Blood Pressure 126/81 05/29/2023 1:27 PM COMPOSING MACHINE OPERATOR Pulse 79 05/29/2023 1:27 PM COMPOSING MACHINE OPERATOR Temperature 37 ??C (98.6 ??F) 05/29/2023 1:27 PM COMPOSING MACHINE OPERATOR Respiratory Rate - - Oxygen Saturation - - Inhaled Oxygen Concentration - - Weight 95.9 kg (211 lb 6.4 oz) 05/29/2023 1:27 P M COMPOSING MACHINE OPERATOR Height - - Body Mass Index 30.33 01/30/2023 10:56 AM CDT documented in this encounter Discharge Instructions * Discharge Instructions* Shelby Higgins RN - 05/29/2023 1:40 PM COMPOSING MACHINE OPERATOR Discharge Instructions [facility] Rheumatology You have received your [...] through Sunday 9-5 call the office at [phone]. After hours or on the weekend call the exchange at [phone]. If you have had lab work done [...] have chosen [facility] as your Provider OSING MACHINE OPERATOR documented in this encounter Medications at Time of Discharge Medication Sig Dispensed Refills Start Date End Date aspirin EC (ECOTRIN) 81 MG tablet Take 1 (one) tablet by mouth once daily 90 tablet 11/14/2021 atorvastatin (LIPITOR) 40 MG tablet Take 1 (one) tablet by mouth at bedtime buPROPion (Wellbutrin) 100 MG tablet Take 1 (one) tablet by mouth 2 times daily 09/04/2022 nghpiaozlhz-zpuc-pdnz sorb, PF, 0.5-1-0.5 % SOLN Instill 1 [...] 05/29/2023 1:41 PM CST JOSE Chalino Deng [id number] 05/29/2023 Diagnosis: Rheumatoid arthritis without rheumatoid factor, multiple sites ([facility]) [M06.09]. Pt denies symptoms of infection or antibiotic use, no open wounds, or recent surgery, or plans for surgery in the next couple of weeks. Pt is aware that we use the 0-10 pain scale to assess discomfort. 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 front desk supervisor pt signs consent for treatment for [...] treatment? Q 8 weeks Shelby Higgins RN OSING MACHINE OPERATOR documented in this encounter Plan of Treatment Upcoming Encounters Date Type Department Care Team (Late st Contact Info) Description 06/03/2024 1:00 PM COMPOSING MACHINE OPERATOR Appointment [facility] - Rheumatology [address] [place] [address] [phone] 06/03/2024 2:00 PM COMPOSING MACHINE OPERATOR Office Visit [facility] - Rheumatology [address] [place] [address] Gloria Smith MD [address] [place] [phone] documented as of this encounter Visit Diagnoses [...] filter. $ New Bag/Syringe 05/29/2023 1:30 PM COMPOSING MACHINE OPERATOR 180 mg 220 mL/hr documented in this encounter Care Teams Wire Drawing Setter Relationship Specialty Start Date End Date Tomas Hyman MD [address] [facility] [address] [place] [address] PCP - General Family Medicine 09/05/18 Isidro Heredia MD Rheumatology 02/09/11 documented as of this encounter
--- OUTSIDE RECORDS SUMMARY | 2024-05-03 08:54 | XMS_ITS | Encounter Summary ---
Author Organization [facility] Address [address] [facility] [place] [address] Care Team Providers Care Associate Professor Of Library Media Name Role Phone Isidro Heredia MD Unavailable [phone] Tomas Hyman MD Primary Care Provider [phone] Encounter Details Date Type Department Care Team [...] Contact Info) Description 06/03/2024 1:00 PM SENIOR UI WEB DEVELOPER Appointment [facility] Medical [facility] - Rheumatology [address] [place] [address] 06/03/2024 2:00 PM SENIOR UI WEB DEVELOPER Office Visit [facility] - Rheumatology [address] [place] [address] Gloria Smith MD [address] [place] [phone] documented as of this encounter Visit Diagnoses Not on filedocumented in this encounter Care Teams Associate Professor Of Library Media Relationship Specialty Start Date End Date Tomas Hyman MD [address] [place] [address] PCP - General Family Medicine 09/05/18 Isidro Heredia MD Rheumatology 02/09/11 documented as of this encounter
--- OUTSIDE RECORDS SUMMARY | 2024-05-03 08:55 | XMS_ITS | Encounter Summary ---
Author Organization [facility] Address [address] [facility] [place] [address] Care Team Providers Care Coremaker Pipe Name Role Phone Isidro Heredia MD Unavailable Tomas Hyman MD Primary Care Provider [phone] Reason for Referral * OP/Amb RFL Auth (Routine) - Closed Specialty Diagnoses / Procedures Referred By Contsarahi t Referred To Contact Diagnoses Right shoulder pain, unspecified chronicity Procedures IA DRAIN/INJECT LARGE JOINT/BURSA Gloria Smith MD [address] [place] [address] Referral ID Status Reason Start Date Expiration Date Visits Re quested Visits Authorized [id number] Closed 09/05/2022 09/05/2023 1 1 Encounter Details Date Type Department Care Team (Late st Contact Info) Description 09/05/2022 2:20 PM CDT Office Visit [facility] - Rheumatology [address] [place] [address] Gloria Smith MD [facility] [place] [address] Rheumatoid arthritis involving right shoulder, [...] Body Mass Index 28.47 07/05/2022 10:45 AM CONTROL ROOM HELPER documented in this encounter Progress Notes * Gloira Smith MD - 09/05/2022 2:30 PM CDT [...] History: Diagnosis Date ??? RA (rheumatoid arthritis) ([facility]) Past Surgical History: Procedure Laterality Date ??? [...] to take medications when he travels to [place] in August 2022. - return to clinic [...] in his chart. - took alendronate from 1270-1303. The total time spent today was 40 minutes performing chart prep, review of data and visit with the patient. documented in this encounter Plan of Treatment Upcoming Encounters Date Type Department Care Team (Late st Contact Info) Description 06/03/2024 1:00 PM CONTROL ROOM HELPER Appointment [facility] - Rheumatology [address] [place] [address] 06/03/2024 2:00 PM CONTROL ROOM HELPER Office Visit [facility] - Rheumatology [address] [place] [address] Gloria Smith MD [facility] [address] documented as of this encounter Visit Diagnoses [...] Shoulder documented in this encounter Care Teams Coremaker Pipe Relationship Specialty Start Date End Date Tomas Hyman MD [address] [facility] [address] [place] [address] PCP - General Family Medicine 09/05/18 Isidro Heredia MD Rheumatology 02/09/11 documented as of this encounter
--- OUTSIDE RECORDS SUMMARY | 2024-05-03 08:55 | XMS_ITS | Encounter Summary ---
Author Organization [facility] Address [address] [facility] [place] [address] Care Team Providers Care Architecture Department Chair Name Role Phone Isidro Heredia MD Unavailable [phone] Tomas Hyman MD Primary Care Provider [phone] Reason for Visit * Reason Onset Date Comments MEDICATION REFILL 09/03/2022 Encounter Details Date Type Department Care Team (Late st Contact Info) Description 09/03/2022 Refill [facility] - Rheumatology [address] [place] [address] Gloria Smith MD [address] [place] [phone] MEDICATION REFILL Social History Tobacco Use [...] 0.7 Recent Labs Component Name 02/10/22 0946 [id number] 52.1 No results for input(s): URICACID in the last 53558 hours. Last ESR: Recent Labs Component Name 02/08/21 1645 06/29/20 1410 02/06/20 1332 SEDRATE 5 13 12 Last 3 CRP: Recent Labs Component Name 02/08/21 1645 06/29/20 1410 02/06/20 1332 CRP <1 <0.20 0.21 documented in this encounter Plan of Treatment Upcoming Encounters Date Type Department Care Team (Late st Contact Info) Description 06/03/2024 1:00 PM ACCESS LIAISON Appointment [facility] - Rheumatology [address] [place] [address] 06/03/2024 2:00 PM ACCESS LIAISON Office Visit [facility] - Rheumatology [address] [place] [address] Gloria Smith MD [address] [place] [phone] documented as of this encounter Visit Diagnoses Diagnosis High risk medication use- Primary Encounter for long-term (current) use of other medications Rheumatoid arthritis of multiple sites with negative rheumatoid factor (HCC) Chronic neck pain Cervicalgia Chronic back pain, unspecified back location, unspecified back pain laterality Neuropathy Mononeuritis of unspecified site documented in this encounter Care Teams Architecture Department Chair Relationship Specialty Start Date End Date Tomas Hyman MD [address] [facility] [address] [place] [phone] PCP - General Family Medicine 09/05/18 Isidro Heredia MD Rheumatology 02/09/11 documented as of this encounter
--- OUTSIDE RECORDS SUMMARY | 2024-05-03 08:55 | XMS_ITS | Encounter Summary ---
Author Organization [facility] Address [address] [facility] [place] [address] Care Team Providers Care Clinical Assistant Name Role Phone Isidro Heredia MD Unavailable [phone] Tomas Hyman MD Primary Care Provider [phone] Reason for Visit * Reason Onset Date Comments MEDICATION REFILL 06/04/2022 Encounter Details Date Type Department Care Team (Late st Contact Info) Description 06/04/2022 Refill [facility] Medical [facility] - Rheumatology [address] [place] [address] Gloria Smith MD [address] [place] [phone] MEDICATION REFILL Social History Tobacco Use [...] Coronavirus/COVID-19? No / Unsure 05/19/2022 10:58 AM PLAYER PIANO TECHNICIAN documented as of this encounter Miscellaneous Notes [...] 0.7 Recent Labs Component Name 02/10/22 0946 [id number] 52.1 No results for input(s): URICACID in the last 97019 hours. Last ESR: Recent Labs Component Name 02/08/21 1645 06/29/20 1410 02/06/20 1332 SEDRATE 5 13 12 Last 3 CRP: Recent Labs Component Name 02/08/21 1645 06/29/20 1410 02/06/20 1332 CRP <1 <0.20 0.21 ER PIANO TECHNICIAN * Telephone Encounter - Mariya Nichole MA - 06/05/2022 10:26 AM PLAYER PIANO TECHNICIAN Patient chart, labs and allergies reviewed and [...] 0.7 Recent Labs Component Name 02/10/22 0946 [id number] 52.1 No results for input(s): URICACID in the last 42142 hours. Last ESR: Recent Labs Component Name 02/08/21 1645 06/29/20 1410 02/06/20 1332 SEDRATE 5 13 12 Last 3 CRP: Recent Labs Component Name 02/08/21 1645 06/29/20 1410 02/06/20 1332 CRP <1 <0.20 0.21 Last Eye exam (if refill for hydroxychloroquine): JINA 05/19/22 Last refill 11/14/21 predisone, 02/28/22 tizanidine, 03/01/22 gabapentin Upcoming visit: 09/05/22 ER PIANO TECHNICIAN documented in this encounter Plan of Treatment Upcoming Encounters Date Type Department Care Team (Late st Contact Info) Description 06/03/2024 1:00 PM PLAYER PIANO TECHNICIAN Appointment [facility] - Rheumatology [address] [place] [address] [phone] 06/03/2024 2:00 PM PLAYER PIANO TECHNICIAN Office Visit [facility] - Rheumatology [address] [place] [address] Gloria Smith MD [address] [place] [phone] documented as of this encounter Results [...] of this report has been sent to [facility] Resulting Agency Comment Lab Testing performed at: [facility] [place] [address] [facility] ??[facility] [id number] Gloria Smith MD LAB - CHEMISTRY MARII ARAUJO [facility] INSURANCE BILL [address] [place] [address] * (ABNORMAL) CBC WITH DIFFERENTIAL (07/27/2022 2:53 [...] Resulting Agency Comment Lab Testing performed at: [facility] [place] [address] [facility] ??[facility] [phone] Gloria Smith MD LAB - HEMATOLOGY ORD ERABLES [facility] INSURANCE BILL [address] [place] [address] documented in this encounter Visit Diagnoses Diagnosis [...] medications documented in this encounter Care Teams Clinical Assistant Relationship Specialty Start Date End Date Tomas Hyman MD [address] [facility] [address] [place] [address] PCP - General Family Medicine 09/05/18 Isidro Heredia MD Rheumatology 02/09/11 documented as of this encounter
--- OUTSIDE RECORDS SUMMARY | 2024-05-03 08:55 | XMS_ITS | Encounter Summary ---
Author Organization [facility] Address [address] [facility] [place] [address] Care Team Providers Care Linux Unix System Administrator Name Role Phone Isidro Heredia MD Unavailable [phone] Tomas Hyman MD Primary Care Provider [phone] Reason for Visit * Treatment (Elective) - Closed Specialty Diagnoses / Procedures Referred By Contsarahi t Referred To Contact Diagnoses Rheumatoid arthritis of multiple sites with negative rheumatoid factor (HCC) Procedures DE GOLIMUMAB FOR IV USE 1MG Gloria Smith MD [address] [place] [address] [address] Referral ID Status Reason Start Date Expiration Date Visits Re quested Visits Authorized [id number] Closed 05/22/2022 04/29/2023 12 12 Encounter Details Date Type Department Care Team (Latest Contact Info) Description 10/04/2022 12:04 PM CDT - 10/04/2022 11:59 PM CDT Hospital Encounter [facility] [address] Tomas Hyman MD [address] [place] [address] Discharge Disposition: Home or Self [...] tablet by mouth 2 times daily 09/04/2022 bpukrbjyasm-rlns-qa lysorb, PF, 0.5-1-0.5 % SOLN Instill 1 [...] 1960 10/04/2022 Patient completed scheduled [facility] at [facility]. Please call with any questions at [phone]. BP 128/74 Pulse 70 Temp 96.6 ??F [...] st Contact Info) Description 06/03/2024 1:00 PM R D ENGINEER Appointment [facility] - Rheumatology [address] [place] [address] 06/03/2024 2:00 PM R D ENGINEER Office Visit [facility] - Rheumatology [address] [place] [address] Gloria Smith MD [address] [place] [phone] documented as of this encounter Visit [...] mL/hr documented in this encounter Care Teams Linux Unix System Administrator Relationship Specialty Start Date End Date Tomsa Hyman MD [address] [place] [address] PCP - General Family Medicine 09/05/18 Isidro Heredia MD Rheumatology 02/09/11 documented as of this encounter
--- OUTSIDE RECORDS SUMMARY | 2024-05-03 08:55 | XMS_ITS | Encounter Summary ---
Author Organization [facility] Address [address] [facility] [place] [address] Care Team Providers Care Fitness Club Manager Name Role Phone Isidro Heredia MD Unavailable [phone] Tomas Hyman MD Primary Care Provider [phone] Encounter Details Date Type Department Care Team (Latest Contact Info) Description 03/03/2022 12:00 PM CDT - 03/03/2022 12:04 PM CDT Hospital Encounter [facility] [address] [place], [place] [phone] [place] [address] [facility] [address] [place] [address] Discharge Disposition: Home or Self [...] 1 (one) tablet by mouth at bedtime gfcigkqvezc-qbql-fb lysorb, PF, 0.5-1-0.5 % SOLN Instill 1 [...] , Total Score: 0 label= PHQ-9 propId= [id number] catId= [id number] encId= [id number] PHQ-9 Thoughts that you would be better [...] complaining of value= options= propid= 91 itemid= [id number] categoryid= [id number] encounterid= [id number] Patient complaining of severe pain,depressed mood related [...] changes and grimacing label= GENERAL APPEARANCE: categoryPropId= [id number] examid= [id number] GENERAL APPEARANCE: alert, oriented x 3, appears to be in pain based on postural changes and grimacing. NC/AT, Symmetrical. label= HEAD: categoryPropId= [id number] examid= [id number] HEAD: NC/AT, Symmetrical.. Hearing intact. label= EARS: categoryPropId= [id number] examid= [id number] EARS: Hearing intact. . Normal work of breathing label= RESPIRATORY: categoryPropId= [id number] examid= [id number] RESPIRATORY: Normal work of breathing. regular rate label= HEART: categoryPropId= [id number] examid= [id number] HEART: regular rate. no edema, no clubbing, no cyanosis label= EXTREMITIES: categoryPropId= [id number] examid= [id number] EXTREMITIES: no edema, no clubbing, no cyanosis. no rash or ulcers label= SKIN: categoryPropId= [id number] examid= [id number] SKIN: no rash or ulcers. Tone normal label= MUSCULOSKELETAL: categoryPropId= [id number] examid= [id number] MUSCULOSKELETAL: Tone normal. See below label= NEUROLOGIC: categoryPropId= [id number] examid= [id number] NEUROLOGIC: See below. CERVICAL SPINE EXAM: -Positive [...] UE prox and distal and symm - television repair teacher 4-5/5 Left UE and symm - television repair teacher 4-5/5 Right UE and symm - sensory [...] on how to reach the clinic or machine precision engraver physician at anytime for questions or complaints. documented in this encounter Plan of Treatment Upcoming Encounters Date Type Department Care Team (Late st Contact Info) Description 06/03/2024 1:00 PM ATTRACTION WORKER Appointment [facility] - Rheumatology [address] [place] [address] [phone] 06/03/2024 2:00 PM ATTRACTION WORKER Office Visit [facility] - Rheumatology [address] [place] [address] [phone] Gloria Smith MD [address] [place] [phone] documented as of this encounter Visit Diagnoses Not on filedocumented in this encounter Care Teams Fitness Club Manager Relationship Specialty Start Date End Date Tomas Hyman MD [address] [facility] [address] [place] [address] PCP - General Family Medicine 09/05/18 Isidro Heredia MD Rheumatology 02/09/11 documented as of this encounter
--- OUTSIDE RECORDS SUMMARY | 2024-05-03 08:55 | XMS_ITS | Encounter Summary ---
Author Organization [facility] Address [address] [facility] [place] [address] Care Team Providers Care Trimmer Meat Name Role Phone Isidro Heredia MD Unavailable [phone] Tomas Hyman MD Primary Care Provider [phone] Reason for Visit * Treatment (Elective) - Closed Specialty Diagnoses / Procedures Referred By Contsarahi t Referred To Contact Diagnoses Rheumatoid arthritis of multiple sites with negative rheumatoid factor (HCC) Procedures [place] GOLIMUMAB FOR IV USE 1MG Gloria Smith MD [address] [place] [address] [address] Referral ID Status Reason Start Date Expiration Date Visits Re quested Visits Authorized [id number] Closed 05/22/2022 04/29/2023 12 12 Encounter Details Date Type Department Care Team (Latest Contact Info) Description 07/05/2022 10:42 AM STENOGRAPHER PRINT SHOP - 07/05/2022 11:59 PM STENOGRAPHER PRINT SHOP Hospital Encounter [facility] [address] [place] [address] Tomas Hyman MD [address] [place] [address] Discharge Disposition: Home or Self [...] Comments Blood Pressure 121/71 07/05/2022 10:45 AM STENOGRAPHER PRINT SHOP Pulse 78 07/05/2022 10:45 AM STENOGRAPHER PRINT SHOP Temperature 36.1 ??C (97 ??F) 07/05/2022 10:45 AM STENOGRAPHER PRINT SHOP Respiratory Rate 18 07/05/2022 10:45 AM STENOGRAPHER PRINT SHOP Oxygen Saturation 100% 07/05/2022 10:45 AM STENOGRAPHER PRINT SHOP Inhaled Oxygen Concentration - - Weight 95.3 kg (210 lb) 07/05/2022 10:45 AM STENOGRAPHER PRINT SHOP Height 177.8 cm (5' 10 ) 07/05/2022 10:45 AM STENOGRAPHER PRINT SHOP Body Mass Index 30.13 07/05/2022 10:45 AM STENOGRAPHER PRINT SHOP documented in this encounter Medications at Time of Discharge Medication Sig Dispensed Refills Start Date End Date aspirin EC (ECOTRIN) 81 MG tablet Take 1 (one) tablet by mouth once daily 90 tablet 11/14/2021 atorvastatin (LIPITOR) 40 MG tablet Take 1 (one) tablet by mouth at bedtime phrjefubzco-yyyz-ni lysorb, PF, 0.5-1-0.5 % SOLN Instill 1 [...] PM CST Patient completed scheduled Simponi at [facility]. Please call with any questions [phone]. BP 121/71 Pulse 78 Temp 97 ??F Resp 18 Ht 1.778 m (5' 10 ) Wt 95.3 kg (210 lb) SpO2 100% Medications 0.9% NaCl injection 1-40 mL (10 mL Intracatheter $ Given 07/05/22 1224) golimumab (Simponi Aria) 190 mg in 0.9% NaCl IV 100 mL infusion (0 mg Intravenous Stopped 07/05/22 1151) OGRAPHER PRINT SHOP documented in this encounter Plan of Treatment Upcoming Encounters Date Type Department Care Team (Late st Contact Info) Description 06/03/2024 1:00 PM STENOGRAPHER PRINT SHOP Appointment [facility] - Rheumatology [address] [place] [address] 06/03/2024 2:00 PM STENOGRAPHER PRINT SHOP Office Visit [facility] - Rheumatology [address] [place] [address] Gloria Smith MD [address] [place] [phone] documented as of this encounter Visit [...] blood draws. $ Given 07/05/2022 12:24 PM STENOGRAPHER PRINT SHOP 10 mL $ Given 07/05/2022 10:51 AM STENOGRAPHER PRINT SHOP 10 mL golimumab (Simponi Aria) 190 mg [...] filter. $ New Bag/Syringe 07/05/2022 11:20 AM STENOGRAPHER PRINT SHOP 190 mg 200 mL/hr documented in this encounter Care Teams Trimmer Meat Relationship Specialty Start Date End Date Tomas Hyman MD [address] [facility] [address] [place] [address] PCP - General Family Medicine 09/05/18 Isidro Heredia MD Rheumatology 02/09/11 documented as of this encounter
--- OUTSIDE RECORDS SUMMARY | 2024-05-03 08:55 | XMS_ITS | Encounter Summary ---
Author Organization [facility] Address [address] [facility] [place] [address] Care Team Providers Care Sustainable Development Policy Analyst Name Role Phone Isidro Heredia MD Unavailable [phone] Tomas Hyman MD Primary Care Provider [phone] Reason for Visit * Reason Onset Date Comments Scheduling 06/26/2022 Pt scheduled for Simponi infusion 07/05 at [place] Encounter Details Date Type Department Care Team (Late st Contact Info) Description 06/26/2022 Telephone [facility] [address] [facility] [address] [place], [place] [phone] Alisia Silva, RN Scheduling (Pt scheduled for Simponi infusion 07/05 at [place]) Social History Tobacco Use Types Packs/Day Years [...] (Late Contact Info) Description 06/03/2024 1:00 PM SUPERVISOR SMOKE CONTROL Appointment [facility] - Rheumatology [address] [place] [address] 06/03/2024 2:00 PM SUPERVISOR SMOKE CONTROL Office Visit [facility] - Rheumatology [address] [place] [address] Gloria Smith MD [address] [place] [address] documented as of this encounter Visit Diagnoses Not on filedocumented in this encounter Care Teams Sustainable Development Policy Analyst Relationship Specialty Start Date End Date Tomas Hyman MD [address] [place] [address] PCP - General Family Medicine 09/05/18 Isidro Heredia MD Rheumatology 02/09/11 documented as of this encounter
--- OUTSIDE RECORDS SUMMARY | 2024-05-03 08:55 | XMS_ITS | Encounter Summary ---
Author Organization [facility] Address [address] [facility] [place] [address] Care Team Providers Care Director Of Maternity Services Name Role Phone Isidro Heredia MD Unavailable [phone] Tomas Hyman MD Primary Care Provider [phone] Reason for Visit * Reason Onset Date Comments Medication Prior Auth Request 09/05/2022 Encounter Details Date Type Department Care Team (Late st Contact Info) Description 09/05/2022 Telephone [facility] Medical [facility] - Rheumatology [address] [place] [address] Gloria Smith MD [address] [place] [phone] Medication Prior Auth Request Social History [...] PM CDT Please schedule simponi infusion at [facility] 8 weeks after his next infusion (10/04). documented in this encounter Plan of Treatment Upcoming Encounters Date Type Department Care Team (Late st Contact Info) Description 06/03/2024 1:00 PM ACUTE CARE REGISTERED NURSE Appointment [facility] - Rheumatology [address] [place] [address] [phone] 06/03/2024 2:00 PM ACUTE CARE REGISTERED NURSE Office Visit [facility] - Rheumatology [address] [place] [address] [phone] Gloria Smith MD [address] [place] [phone] documented as of this encounter Visit Diagnoses Not on filedocumented in this encounter Care Teams Director Of Maternity Services Relationship Specialty Start Date End Date Tomas Hyman MD [address] [place] [address] PCP - General Family Medicine 09/05/18 Isidro Heredia MD Rheumatology 02/09/11 documented as of this encounter
--- OUTSIDE RECORDS SUMMARY | 2024-05-03 08:55 | XMS_ITS | Encounter Summary ---
Author Organization [facility] Address [address] [facility] [place] [address] Care Team Providers Care Perch Mender Name Role Phone Isidro Heredia MD Unavailable [phone] Tomas Hyman MD Primary Care Provider [phone] Reason for Visit * Reason Onset Date Comments MEDICATION REFILL 02/27/2022 Encounter Details Date Type Department Care Team (Late st Contact Info) Description 02/27/2022 Refill [facility] Medical [facility] - Rheumatology [address] [place] [address] Gloria Smith MD [address] [place] [phone] MEDICATION REFILL Social History Tobacco Use [...] AM CDT LMOR for patient and sent [employer] message informing of Dr. Smith's below response. * Telephone Encounter - Gloria Smith MD - 02/28/2022 6:16 PM CDT Yes to renewing gabapentin. Dx: neuropathy Would defer aspirin and pantoprazole to pcp for longterm management. Those were started by dr. Heredia who is both otr truck driver and pcp. * Telephone Encounter - Arian [...] 0.6 Recent Labs Component Name 02/10/22 0946 [id number] 52.1 No results for input(s): URICACID in the last 75531 hours. Last ESR: Recent Labs Component Name [...] st Contact Info) Description 06/03/2024 1:00 PM HAWK MISSILE SYSTEM CREWMEMBER Appointment [facility] - Rheumatology [address] [place] [phone] 06/03/2024 2:00 PM HAWK MISSILE SYSTEM CREWMEMBER Office Visit [facility] - Rheumatology [address] [place] [address] Gloria Smith MD [address] [place] [phone] documented as of this encounter Procedures Procedure Name Priority Date/Time Associated Diagnosis Comments CBC W AUTO DIFFERENTIAL Routine 04/12/2022 3:14 PM HAWK MISSILE SYSTEM CREWMEMBER High risk medication use COMPREHENSIVE METABOLIC PANEL Routine 04/12/2022 3:14 PM HAWK MISSILE SYSTEM CREWMEMBER High risk medication use documented in this encounter Results * (ABNORMAL) COMPREHENSIVE METABOLIC PANEL (04/12/2022 3:14 PM HAWK MISSILE SYSTEM CREWMEMBER) Glucose 106(H) 70 - 99 mg/dL [facility] [...] BLOOD SPECIMEN / Unknown 04/12/2022 3:14 PM HAWK MISSILE SYSTEM CREWMEMBER 04/12/2022 Narrative Resulting Agency Comment Lab Testing performed at: [facility] ??[facility] [id number] Gloria Smith MD LAB - CHEMISTRY CALEBE VAN [facility] INSURANCE BILL [address] [place] [address] * (ABNORMAL) CBC WITH DIFFERENTIAL (04/12/2022 3:14 PM HAWK MISSILE SYSTEM CREWMEMBER) WBC 8.2 3.4 - 10.8 x10E3/uL [facility] [...] BLOOD SPECIMEN / Unknown 04/12/2022 3:14 PM HAWK MISSILE SYSTEM CREWMEMBER 04/12/2022 Narrative Resulting Agency Comment [facility] Testing performed at: [facility] [address] [facility] ??[facility] [id number] Gloria Smith MD LAB - HEMATOLOGY ORD ERABLES [facility] INSURANCE BILL [address] [place] [address] documented in this encounter Visit Diagnoses Diagnosis Chronic neck pain- Primary Cervicalgia Rheumatoid arthritis of multiple sites with negative rheumatoid factor (HCC) Chronic back pain, unspecified back location, unspecified back pain laterality High risk medication use Encounter for long-term (current) use of other medications Neuropathy Mononeuritis of unspecified site documented in this encounter Care Teams Perch Mender Relationship Specialty Start Date End Date Tomas Hyman MD [address] [facility] [address] [place] [address] PCP - General Family Medicine 09/05/18 Isidro Heredia MD Rheumatology 02/09/11 documented as of this encounter
--- OUTSIDE RECORDS SUMMARY | 2024-05-03 08:55 | XMS_ITS | Encounter Summary ---
Author Organization [facility] Address [address] [facility] [place] [address] Care Team Providers Care Power Plant Manager Name Role Phone Isidro Heredia MD Unavailable [phone] Tomas Hyman MD Primary Care Provider [phone] Encounter Details Date Type Department Care Team (Late Contact Info) Description 07/11/2022 Orders Only [facility] - Rheumatology [address] [place] [address] Gloria Smith MD [address] [place] [phone] High risk medication use Social History [...] (Late Contact Info) Description 06/03/2024 1:00 PM PERSONAL SUPPORT WORKER Appointment [facility] - Rheumatology [address] [place] [address] 06/03/2024 2:00 PM PERSONAL SUPPORT WORKER Office Visit [facility] - Rheumatology [address] [place] [address] Gloria Smith MD [address] [...] of this report has been sent to [facility] Resulting Agency Comment Lab Testing performed at: [facility] [address] ??[facility] [id number] Gloria Smith MD LAB - CHEMISTRY MARII ARAUJO [facility] INSURANCE BILL [address] [place] [address] * (ABNORMAL) CBC WITH DIFFERENTIAL (07/27/2022 2:53 [...] Agency Comment Lab Testing performed at: [facility] [address] [facility] ??[facility] [id number] Gloria Smith MD LAB - HEMATOLOGY ORD ERABLES [facility] INSURANCE BILL [address] [place] [address] documented in this encounter Visit Diagnoses Diagnosis High risk medication use Encounter for long-term (current) use of other medications documented in this encounter Care Teams Power Plant Manager Relationship Specialty Start Date End Date Tomas Hyman MD [address] [place] [address] PCP - General Family Medicine 09/05/18 Isidro Heredia MD Rheumatology 02/09/11 documented as of this encounter
--- OUTSIDE RECORDS SUMMARY | 2024-05-03 08:55 | XMS_ITS | Encounter Summary ---
Author Organization [facility] Address [address] [facility] [place] [address] Care Team Providers Care Chief Financial Officer Name Role Phone Isidro Heredia MD Unavailable [phone] Tomas Hyman MD Primary Care Provider [phone] Encounter Details Date Type Department Care Team [...] Coronavirus/COVID-19? No / Unsure 05/19/2022 10:58 AM OUTSIDE SALES ADVERTISING EXECUTIVE documented as of this encounter Plan of Treatment Upcoming Encounters Date Type Department Care Team (Late st Contact Info) Description 06/03/2024 1:00 PM OUTSIDE SALES ADVERTISING EXECUTIVE Appointment [facility] - Rheumatology [address] [place] [address] 06/03/2024 2:00 PM OUTSIDE SALES ADVERTISING EXECUTIVE Office Visit [facility] - Rheumatology [address] [place] [address] Gloria Smith MD [address] [place] [phone] documented as of this encounter Visit Diagnoses Not on filedocumented in this encounter Care Teams Chief Financial Officer Relationship Specialty Start Date End Date Tomas Hyman MD [address] [place] [address] PCP - General Family Medicine 09/05/18 Isidro Heredia MD Rheumatology 02/09/11 documented as of this encounter
--- OUTSIDE RECORDS SUMMARY | 2024-05-03 08:55 | XMS_ITS | Encounter Summary ---
Author Organization [facility] Address [address] [facility] [place] [address] Care Team Providers Care Revenue Field Auditor Name Role Phone Isidro Heredia MD Unavailable [phone] Tomas Hyman MD Primary Care Provider [phone] Encounter Details Date Type Department Care Team [...] Contact Info) Description 06/03/2024 1:00 PM TRANSPLANT IMMUNOLOGIST Appointment [facility] - Rheumatology [address] [place] [address] 06/03/2024 2:00 PM TRANSPLANT IMMUNOLOGIST Office Visit [facility] - Rheumatology [address] [place] [address] Gloria Smith MD [address] [place] [phone] documented as of this encounter Visit Diagnoses Not on filedocumented in this encounter Care Teams Revenue Field Auditor Relationship Specialty Start Date End Date Tomas Hyman MD [address] [place] [address] PCP - General Family Medicine 09/05/18 Isidro Heredia MD Rheumatology 02/09/11 documented as of this encounter
--- OUTSIDE RECORDS SUMMARY | 2024-05-03 08:55 | XMS_ITS | Encounter Summary ---
Author Organization [facility] Address [address] [facility] [place] [address] Care Team Providers Care Lamp Mechanic Name Role Phone Isidro Heredia MD Unavailable [phone] Tomas Hyman MD Primary Care Provider [phone] Reason for Visit * Treatment (Elective) - Closed Specialty Diagnoses / Procedures Referred By Contsarahi t Referred To Contact Diagnoses Rheumatoid arthritis of multiple sites with negative rheumatoid factor (HCC) Procedures [place] GOLIMUMAB FOR IV USE 1MG Gloria Smith MD [address] [place] [address] [address] Referral ID Status Reason Start Date Expiration Date Visits Re quested Visits Authorized [id number] Closed 05/22/2022 04/29/2023 12 12 Encounter Details Date Type Department Care Team (Latest Contact Info) Description 08/02/2022 11:20 AM CDT - 08/02/2022 11:59 PM CDT Hospital Encounter [facility] [address] [place] [address] Tomas Hyman MD [address] [place] [address] Discharge Disposition: Home or Self [...] Body Mass Index 29.18 07/05/2022 10:45 AM ADVERTISING COORDINATOR documented in this encounter Medications at Time of Discharge Medication Sig Dispensed Refills Start Date End Date aspirin EC (ECOTRIN) 81 MG tablet Take 1 (one) tablet by mouth once daily 90 tablet 11/14/2021 atorvastatin (LIPITOR) 40 MG tablet Take 1 (one) tablet by mouth at bedtime tcutrsbikqj-ahcc-xk lysorb, PF, 0.5-1-0.5 % SOLN Instill 1 [...] this encounter Progress Notes * Kae Shell, NURSING COORDINATOR-LAMINATION ASSEMBLER - 08/02/2022 1:30 PM CDT Chalino Deng 1960 Patient completed scheduled Treatment at [facility]. Please call with any questions [phone]. BP 109/65 Pulse 76 Temp 98.4 ??F [...] Contact Info) Description 06/03/2024 1:00 PM ADVERTISING COORDINATOR Appointment [facility] - Rheumatology [address] [place] [address] 06/03/2024 2:00 PM ADVERTISING COORDINATOR Office Visit [facility] - Rheumatology [address] [place] [address] Gloria Smith MD [address] [place] [phone] documented as of this encounter Visit [...] mL/hr documented in this encounter Care Teams Lamp Mechanic Relationship Specialty Start Date End Date Tomas Hyman MD [address] [place] [address] PCP - General Family Medicine 09/05/18 Isidro Heredia MD Rheumatology 02/09/11 documented as of this encounter
--- OUTSIDE RECORDS SUMMARY | 2024-05-03 08:55 | XMS_ITS | Encounter Summary ---
Author Organization [facility] Address [address] [facility] [place] [address] Care Team Providers Care District Service Manager Name Role Phone Isidro Heredia MD Unavailable [phone] Tomas Hyman MD Primary Care Provider [phone] Reason for Referral * OP/Amb RFL Auth (Routine) - Closed Specialty Diagnoses / Procedures Referred By Contsarahi t Referred To Contact Diagnoses Right shoulder pain, unspecified chronicity Procedures OK DRAIN/INJECT LARGE JOINT/BURSA Gloria Smith MD [address] [place] [address] Referral ID Status Reason Start Date Expiration Date Visits Re quested Visits Authorized [id number] Closed 05/19/2022 05/19/2023 1 1 INE WASHER Reason for Visit * Reason Comments Follow-up Encounter Details Date Type Department Care Team (Late st Contact Info) Description 05/19/2022 11:20 AM MACHINE WASHER Office Visit [facility] - Rheumatology [address] [place] [address] Gloria Smith MD [place] [address] Rheumatoid arthritis of multiple sites [...] Coronavirus/COVID-19? No / Unsure 05/19/2022 10:58 AM MACHINE WASHER documented as of this encounter Last Filed Vital Signs Vital Sign Reading Time Taken Comments Blood Pressure 115/68 05/19/2022 11:04 AM MACHINE WASHER Pulse 81 05/19/2022 11:04 AM MACHINE WASHER Temperature - - Respiratory Rate 22 05/19/2022 11:04 AM MACHINE WASHER Oxygen Saturation - - Inhaled Oxygen Concentration - - Weight 101.6 kg (224 lb) 05/19/2022 11:04 AM MACHINE WASHER Height 177.8 cm (5' 10 ) 05/19/2022 11:04 AM MACHINE WASHER Body Mass Index 32.14 05/19/2022 11:04 AM MACHINE WASHER documented in this encounter Patient Instructions * Patient Instructions* Gloria Smith MD - 05/19/2022 11:59 AM MACHINE WASHER Discuss with pcp regarding repeating bone density and compare to previous results. INE WASHER documented in this encounter Progress Notes * [...] History: Diagnosis Date ??? RA (rheumatoid arthritis) ([facility]) Past Surgical History: Procedure Laterality [...] in his chart. - took alendronate from [id number]. INE WASHER documented in this encounter Plan of Treatment Upcoming Encounters Date Type Department Care Team (Late st Contact Info) Description 06/03/2024 1:00 PM MACHINE WASHER Appointment [facility] - Rheumatology [address] [place] [address] [phone] 06/03/2024 2:00 PM MACHINE WASHER Office Visit [facility] - Rheumatology [address] [place] [address] Gloria Smith MD [address] [place] [phone] documented as of this encounter Visit Diagnoses [...] at 1245 $ Given 05/19/2022 12:24 PM MACHINE WASHER 1 mL Right Shoulder methylPREDNISolone acetate (DEPO-Medrol) injection 40 mg 40 mg, Intra-articular, ONCE, 1 dose, On Sun05/19/22 at 1245 $ Given 05/19/2022 12:25 PM MACHINE WASHER 40 mg Right Shoulder documented in this encounter Care Teams District Service Manager Relationship Specialty Start Date End Date Tomas Hyman MD [address] [facility] [place] [address] PCP - General Family Medicine 09/05/18 Isidro Heredia MD Rheumatology 02/09/11 documented as of this encounter
--- OUTSIDE RECORDS SUMMARY | 2024-05-03 08:55 | XMS_ITS | Encounter Summary ---
Author Organization [facility] Address [address] [facility] [place] [address] Care Team Providers Care Director Of Claims Name Role Phone Isidro Heredia MD Unavailable [phone] Tomas Hyman MD Primary Care Provider [phone] Encounter Details Date Type Department Care Team (Latest Contact Info) Description 03/03/2022 12:05 PM CDT - 03/03/2022 11:59 PM CDT Hospital Encounter [facility] [address] [place], [place] [phone] [place] [address] [facility] [address] [place] [address] Discharge Disposition: Home or Self [...] León RN - 03/03/2022 12:15 PM CDT [facility] Pain Discharge Instructions Selective Epidural [...] headache, or any other problems, please call [phone] or after hours callDr. Caldwell at [phone] and tell them your physician's name. The exchange will alert the physician tangible personal property appraiser. If sedation is given: No sedation given. [...] 1 (one) tablet by mouth at bedtime jydufpocmwf-gxgz-xv lysorb, PF, 0.5-1-0.5 % SOLN Instill 1 [...] st Contact Info) Description 06/03/2024 1:00 PM AUTISM MOTOR SPECIALIST Appointment [facility] - Rheumatology [address] [place] [phone] 06/03/2024 2:00 PM AUTISM MOTOR SPECIALIST Office Visit [facility] - Rheumatology [address] [place] [address] [phone] Gloria Smith MD [address] [place] [phone] Pending Results Name Type Priority Associated Diagnoses [...] mg documented in this encounter Care Teams Director Of Claims Relationship Specialty Start Date End Date Tomas Hyman MD [address] [facility] [address] [place] [address] PCP - General Family Medicine 09/05/18 Isidro Heredia MD Rheumatology 02/09/11 documented as of this encounter
--- OUTSIDE RECORDS SUMMARY | 2024-05-03 08:56 | XMS_ITS | Encounter Summary ---
Author Organization [facility] Address [address] [facility] [place] [address] Care Team Providers Care Shift Supervisor Film Processing Name Role Phone Isidro Heredia MD Unavailable [phone] Tomas Hyman MD Primary Care Provider [phone] Reason for Visit * Reason Onset Date Comments Medication Prior Auth Request 02/08/2021 Encounter Details Date Type Department Care Team (Late st Contact Info) Description 02/08/2021 Telephone [facility] - Rheumatology [address] [place] [address] Gloria Dillon MD [address] [place] [phone] Medication Prior Auth Request Social History [...] COVID-19? No / Unsure 06/03/2021 12:36 PM VIGOUREUX PRINTER documented as of this encounter Miscellaneous Notes * Addendum Note - Gloria Dillon MD - 06/09/2021 4:02 PM CSTAddended by: GLORIA DILLON on: 06/09/2021 04:02 PM Modules accepted: Orders UREUX PRINTER * Telephone Encounter - DeniaCarey Darrion - 06/09/2021 9:05 AM CST I do not see a script was ever sent to his pharmacy. If you could please do that and then they willlet us know if a prior auth is needed and will follow from there. UREUX PRINTER * Telephone Encounter - Gloria Dillon MD - 06/03/2021 1:24 PM CST Please follow up. UREUX PRINTER * Telephone Encounter - Gloria Dillon MD - 02/08/2021 3:35 PM CDT Request for MTX pen (otrexup) 15mg every week. 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
--- OUTSIDE RECORDS SUMMARY | 2024-05-03 08:56 | XMS_ITS | Encounter Summary ---
Author Organization [facility] Address [address] [facility] [place] [address] Care Team Providers Care Brick Offbearer Name Role Phone Isidro Heredia MD Unavailable [phone] Tomas Hyman MD Primary Care Provider [phone] Reason for Visit * Reason Comments Follow-up Encounter Details Date Type Department Care Team (Late st Contact Info) Description 02/08/2021 2:40 PM CDT Office Visit [facility] - Rheumatology [address] [place] [address] Gloria Smith MD [address] [place] [phone] Rheumatoid arthritis of multiple sites with [...] bone density scan - took alendronate from 3440-1246. The total time spent today was 40 minutes performing chart prep, review of data and visit with the patient. documented in this encounter Plan of Treatment Upcoming Encounters Date Type Department Care Team (Late st Contact Info) Description 06/03/2024 1:00 PM SKILLS TRAINER Appointment [facility] - Rheumatology [address] [place] [address] 06/03/2024 2:00 PM SKILLS TRAINER Office Visit [facility] - Rheumatology [address] [place] [address] Gloria Smith MD [address] [place] [phone] Scheduled Orders Name Type Priority Associated [...] PM CDT) Advance Beneficiary Notice Option 3 [facility] INSURANCE BILL Comment: One or more tests [...] Resulting Agency Comment Lab Testing performed at: [facility] [address] [facility] ??Formerly [facility] [phone] Gloria Smith MD LAB - CHEMISTRY MARII ARAUJO [employer] INSURANCE BILL [address] [place] [address] * C-REACTIVE PROTEIN (02/08/2021 4:45 PM CDT) C-Reactive Protein <1 0 - 10 mg/L [facility] INSURANCE BILL Blood BLOOD SPECIMEN / Unknown 02/08/2021 4:45 PM CDT 02/08/2021 Narrative Resulting Agency Comment Lab Testing performed at: [facility] [address] ??Formerly [facility] [id number] Gloria Smith MD LAB - CHEMISTRY ORDE RABLES Performing Organization Address City/[facility]/ZIP Co de Phone Number [facility] INSURANCE BILL [address] [place] [address] * ERYTHROCYTE SEDIMENTATION RATE (02/08/2021 4:45 PM CDT) Erythrocyte Sedimentation Rate Westergren 5 0 - 30 mm/hr [facility] INSURANCE BILL Blood BLOOD SPECIMEN / Unknown 02/08/2021 4:45 PM CDT 02/08/2021 Narrative Resulting Agency Comment Lab Testing performed at: [facility] [address] ??Formerly [facility] [id number] Gloria Smith MD LAB - HEMATOLOGY ORD ERABLES Performing Organization Address City/[facility]/ZIP Co de Phone Number [facility] INSURANCE BILL [address] [place] [address] * (ABNORMAL) COMPREHENSIVE METABOLIC PANEL (02/08/2021 4:45 [...] Resulting Agency Comment Lab Testing performed at: [facility] ??Formerly [facility] [id number] Gloria Smith MD LAB - CHEMISTRY MARII ARAUJO [facility] INSURANCE BILL [address] [place] [address] * (ABNORMAL) CBC WITH DIFFERENTIAL (02/08/2021 4:45 [...] Resulting Agency Comment Lab Testing performed at: [facility] [address] ??Formerly [facility] [id number] Gloria Smith MD LAB - HEMATOLOGY ORD ERABLES [facility] INSURANCE BILL [address] [place] [address] * (ABNORMAL) VITAMIN B12 (02/08/2021 4:45 PM CDT) Vitamin B12 1,257(H) 232 - 1,245 pg/mL [facility] INSURANCE BILL Blood BLOOD SPECIMEN / Unknown 02/08/2021 4:45 PM CDT 02/08/2021 Narrative Resulting Agency Comment Lab Testing performed at: [facility] [address] ??Formerly [facility] [id number] Gloria Smith MD LAB - CHEMISTRY MARII ARAUJO [facility] INSURANCE BILL [address] [place] [address] documented in this encounter Visit Diagnoses Diagnosis 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
--- OUTSIDE RECORDS SUMMARY | 2024-05-03 08:56 | XMS_ITS | Encounter Summary ---
Author Organization [facility] Address [address] [facility] [place] [address] Care Team Providers Care Foreign Student Adviser Name Role Phone Isidro Heredia MD Unavailable [phone] Tomas Hyman MD Primary Care Provider [phone] Reason for Visit * Reason Onset Date Comments MEDICATION REFILL 04/13/2021 Encounter Details Date Type Department Care Team (Late st Contact Info) Description 04/13/2021 Refill [facility] Medical [facility] - Rheumatology [address] [place] [address] Gloria Smith MD [address] [place] [phone] MEDICATION REFILL Social History Tobacco Use [...] COVID-19? No / Unsure 04/05/2021 1:49 PM DOBBY LOOM FIXER documented as of this encounter Miscellaneous Notes * Telephone Encounter - Arian Fernando RN - 04/14/2021 9:00 AM CST Okay per Dr. Smith to renew all of the below medications. Y LOOM FIXER * Telephone Encounter - Arian Fernando RN [...] 1410 02/06/20 1332 CRP <1 <0.20 0.21 Y LOOM FIXER * Telephone Encounter - Manuela Mirza - 04/13/2021 8:52 AM CST Last refill-01/18/2021 and02/08/2021 Last OV-02/08/2021 Next OV-06/03/2021 Y LOOM FIXER documented in this encounter Plan of Treatment Upcoming Encounters Date Type Department Care Team (Late st Contact Info) Description 06/03/2024 1:00 PM DOBBY LOOM FIXER Appointment [facility] - Rheumatology [address] [place] [address] 06/03/2024 2:00 PM DOBBY LOOM FIXER Office Visit [facility] - Rheumatology [address] [place] [address] Gloria Smith MD [address] [place] [phone] documented as of this encounter Visit Diagnoses Diagnosis Rheumatoid arthritis of multiple sites with negative rheumatoid factor (HCC) documented in this encounter Care Teams Foreign Student Adviser Relationship Specialty Start Date End Date Tomas Hyman MD [address] [facility] [address] [place] [address] PCP - General Family Medicine 09/05/18 Isidro Heredia MD Rheumatology 02/09/11 documented as of this encounter
--- OUTSIDE RECORDS SUMMARY | 2024-05-03 08:56 | XMS_ITS | Encounter Summary ---
Author Organization [facility] Address [address] [facility] [place] [address] Care Team Providers Care Double End Production Grinder Name Role Phone Isidro Heredia MD Unavailable [phone] Tomas Hyman MD Primary Care Provider [phone] Reason for Visit * Reason Onset Date Comments Results 07/28/2021 Encounter Details Date Type Department Care Team (Late st Contact Info) Description 07/28/2021 Telephone [facility] - Family Medicine [address] [place] [address] Gloria Smith MD [address] [place] [phone] Results Social History Tobacco Use Types [...] st Contact Info) Description 06/03/2024 1:00 PM EZPAWN SALES AND LENDING TEAM MEMBER Appointment [facility] - Rheumatology [address] [place] [address] 06/03/2024 2:00 PM EZPAWN SALES AND LENDING TEAM MEMBER Office Visit [facility] - Rheumatology [address] [place] [address] Gloria Smith MD [address] [place] [phone] documented as of this encounter Visit Diagnoses Not on filedocumented in this encounter Care Teams Double End Production Grinder Relationship Specialty Start Date End Date Tomas Hyman MD [address] [facility] [address] [place] [address] PCP - General Family Medicine 09/05/18 Isidro Heredia MD Rheumatology 02/09/11 documented as of this encounter
--- OUTSIDE RECORDS SUMMARY | 2024-05-03 08:56 | XMS_ITS | Encounter Summary ---
Author Organization [facility] Address [address] [place] [address] Care Team Providers Care Informatics Nurse Name Role Phone Isidro Heredia MD Unavailable [phone] Tomas Hyman MD Primary Care Provider [phone] Reason for Visit * Reason Onset Date Comments MEDICATION REFILL 08/03/2021 Encounter Details Date Type Department Care Team (Late st Contact Info) Description 08/03/2021 Refill [facility] Medical [facility] - Rheumatology [address] [place] [address] Gloria Smith MD [address] [place] [phone] MEDICATION REFILL Social History Tobacco Use [...] 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 NON-BIOLOGIC REFILL REQUEST Last OV: [...] ec,pantoprazole ec,methotrexate 06/14/2020 gabapentin,prednisone,celecoxib 10-19-2020 folic acid [id number] Upcoming visit: 09-02-2021 documented in this encounter Plan of Treatment Upcoming Encounters Date Type Department Care Team (Late st Contact Info) Description 06/03/2024 1:00 PM DIVE SUPERINTENDENT Appointment [facility] - Rheumatology [address] [place] [address] 06/03/2024 2:00 PM DIVE SUPERINTENDENT Office Visit [facility] - Rheumatology [address] [place] [address] Gloria Smith MD [facility] [place] [phone] documented as of this encounter Visit Diagnoses Diagnosis Rheumatoid arthritis of multiple sites with negative rheumatoid factor (HCC) documented in this encounter Care Teams Informatics Nurse Relationship Specialty Start Date End Date Tomas Hyman MD [address] [place] [address] PCP - General Family Medicine 09/05/18 Isidro Heredia MD Rheumatology 02/09/11 documented as of this encounter
--- OUTSIDE RECORDS SUMMARY | 2024-05-03 08:56 | XMS_ITS | Encounter Summary ---
Author Organization [facility] Address [address] [place] [address] Care Team Providers Care Gm Mobile Name Role Phone Isidro Heredia MD Unavailable [phone] Tomas Hyman MD Primary Care Provider [phone] Reason for Visit * Reason Onset Date Comments Medication Prior Auth Request 06/03/2021 Encounter Details Date Type Department Care Team (Late st Contact Info) Description 06/03/2021 Telephone [facility] Medical [facility] - Rheumatology [address] [place] [address] Gloria Dillon MD [address] [place] [phone] Medication Prior Auth Request Social History [...] COVID-19? No / Unsure 06/03/2021 12:36 PM WAREHOUSE ORDER PICKER documented as of this encounter Miscellaneous Notes * Telephone Encounter - Carey Loza - 06/16/2021 12:06 PM CST Left message for patient to call HOUSE ORDER PICKER * Addendum Note - Gloria Dillon MD - 06/10/2021 10:45 AM CSTAddended by: GLORIA DILLON on: 06/10/2021 10:45 AM Modules accepted: Orders HOUSE ORDER PICKER * Telephone Encounter - Gloria Dillon MD - 06/10/2021 10:45 AM CST Please explain to him. HOUSE ORDER PICKER * Telephone Encounter - Denisa Mirza - [...] Approved through PA already on File from 07/04/[id number] Submitted via: Insurance: [facility] Case Number: not avialable Helpdesk: [phone] HOUSE ORDER PICKER * Telephone Encounter - Gloria Dillon MD - 06/03/2021 1:12 PM CST Request humira 40mg every 14 weeks. 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 HOUSE ORDER PICKER documented in this encounter Plan of Treatment Upcoming Encounters Date Type Department Care Team (Late st Contact Info) Description 06/03/2024 1:00 PM WAREHOUSE ORDER PICKER Appointment [facility] - Rheumatology [address] [place] [phone] 06/03/2024 2:00 PM WAREHOUSE ORDER PICKER Office Visit [facility] - Rheumatology [address] [place] [address] Gloria Dillon MD [address] [place] [phone] documented as of this encounter Visit Diagnoses Not on filedocumented in this encounter Care Teams Gm Mobile Relationship Specialty Start Date End Date Tomas Hyman MD [address] [place] [address] PCP - General Family Medicine 09/05/18 Isidro Heredia MD Rheumatology 02/09/11 documented as of this encounter
--- OUTSIDE RECORDS SUMMARY | 2024-05-03 08:56 | XMS_ITS | Encounter Summary ---
Author Organization [facility] Address [address] [facility] [place] [address] Care Team Providers Care Senior Regulatory Affairs Specialist Name Role Phone Isidro Heredia MD Unavailable [phone] Tomas Hyman MD Primary Care Provider [phone] Reason for Visit * Reason Onset Date Comments Medication Prior Auth Request 02/10/2022 Encounter Details Date Type Department Care Team (Late st Contact Info) Description 02/10/2022 Telephone [facility] - Rheumatology [address] [place] [address] Gloria Smith MD [address] [place] [phone] Medication Prior Auth Request Social History [...] Coronavirus/COVID-19? No / Unsure 05/19/2022 10:58 AM INTERNATIONAL MARKETING MANAGER documented as of this encounter Miscellaneous Notes * Telephone Encounter - Arian Fernando RN - 05/19/2022 12:49 PM CST Called the [facility] and spoke with Denise who verified that the Simponi Infusion plan was received. I was informed that the PA will be verified by the PA team at [place] and then the patient contacted to schedule. RNATIONAL MARKETING MANAGER * Telephone Encounter - Gloria Smith MD - 05/19/2022 12:41 PM CST [facility]. No need to follow up PA. RNATIONAL MARKETING MANAGER * Telephone Encounter - Gloria Smith MD - 05/18/2022 9:04 PM CST Please follow up. RNATIONAL MARKETING MANAGER * Telephone Encounter - Gloria Smith MD - 02/10/2022 1:00 PM CDT Request simponi 2 mg/kg at weeks 0, 4, and then every 8 weeks. 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 documented in this encounter Plan of Treatment Upcoming Encounters Date Type Department Care Team (Late st Contact Info) Description 06/03/2024 1:00 PM INTERNATIONAL MARKETING MANAGER Appointment [facility] - Rheumatology [address] [place] [phone] 06/03/2024 2:00 PM INTERNATIONAL MARKETING MANAGER Office Visit [facility] - Rheumatology [address] [place] [address] Gloria Smith MD [address] [place] [phone] documented as of this encounter Visit Diagnoses Not on filedocumented in this encounter Care Teams Senior Regulatory Affairs Specialist Relationship Specialty Start Date End Date Tomas Hyman MD [address] [place] [address] PCP - General Family Medicine 09/05/18 Isidro Heredia MD Rheumatology 02/09/11 documented as of this encounter
--- OUTSIDE RECORDS SUMMARY | 2024-05-03 08:56 | XMS_ITS | Encounter Summary ---
Author Organization [facility] Address [address] [facility] [place] [address] Care Team Providers Care Port [place]ward Name Role Phone Isidro Heredia MD Unavailable [phone] Tomas Hyman MD Primary Care Provider [phone] Reason for Visit * Reason Onset Date Comments MEDICATION REFILL 11/13/2021 Encounter Details Date Type Department Care Team (Late st Contact Info) Description 11/13/2021 Refill [facility] - Rheumatology [address] [place] [address] Gloria Smith MD [address] [place] [phone] MEDICATION REFILL Social History Tobacco Use [...] 0.7 0.7 0.6 No results for input(s): [id number] in the last 83906 hours. No results for input(s): URICACID in the last 79581 hours. Last ESR: Recent Labs Component Name 02/08/21 1645 06/29/20 1410 02/06/20 1332 SEDRATE 5 13 12 Last 3 CRP: Recent Labs Component Name 02/08/21 1645 06/29/20 1410 02/06/20 1332 CRP <1 <0.20 0.21 documented in this encounter Plan of Treatment Upcoming Encounters Date Type Department Care Team (Late st Contact Info) Description 06/03/2024 1:00 PM FILER REPAIRER Appointment [facility] - Rheumatology [address] [place] [address] 06/03/2024 2:00 PM FILER REPAIRER Office Visit [facility] - Rheumatology [address] [place] [address] Gloria Smith MD [address] [place] [phone] documented as of this encounter Visit Diagnoses Diagnosis Rheumatoid arthritis of multiple sites with negative rheumatoid factor (HCC) documented in this encounter Care Teams [place] Relationship Specialty Start Date End Date Tomas Hyman MD [address] [facility] [address] [place] [address] PCP - General Family Medicine 09/05/18 Isidro Heredia MD Rheumatology 02/09/11 documented as of this encounter
--- OUTSIDE RECORDS SUMMARY | 2024-05-03 08:56 | XMS_ITS | Encounter Summary ---
Author Organization [facility] Address [address] [facility] [place] [address] Care Team Providers Care University Teacher Name Role Phone Isidro Heredia MD Unavailable [phone] Tomas Hyman MD Primary Care Provider [phone] Encounter Details Date Type Department Care Team [...] COVID-19? No / Unsure 04/05/2021 1:49 PM FLOOR PERSON documented as of this encounter Plan of Treatment Upcoming Encounters Date Type Department Care Team (Late st Contact Info) Description 06/03/2024 1:00 PM FLOOR PERSON Appointment [facility] - Rheumatology [address] [place] [address] 06/03/2024 2:00 PM FLOOR PERSON Office Visit [facility] - Rheumatology [address] [place] [address] Gloria Smith MD [address] [place] [phone] documented as of this encounter Visit Diagnoses Not on filedocumented in this encounter Care Teams University Teacher Relationship Specialty Start Date End Date Tomas Hyman MD [address] [facility] [address] [place] [address] PCP - General Family Medicine 09/05/18 Isidro Heredia MD Rheumatology 02/09/11 documented as of this encounter
--- OUTSIDE RECORDS SUMMARY | 2024-05-03 08:56 | XMS_ITS | Encounter Summary ---
Author Organization [facility] Address [address] [place] [address] Care Team Providers Care Service Or Work Dispatcher Name Role Phone Isidro Heredia MD Unavailable [phone] Tomas Hyman MD Primary Care Provider [phone] Reason for Visit * Reason Comments Follow-up Encounter Details Date Type Department Care Team (Late st Contact Info) Description 02/10/2022 8:40 AM CDT Office Visit [facility] - Rheumatology [address] [place] [address] Gloria Smith MD [address] [place] [phone] Rheumatoid arthritis of multiple sites with [...] History: Diagnosis Date ??? RA (rheumatoid arthritis) ([facility]) Past Surgical History: Procedure Laterality [...] bone density scan - took alendronate from 6482-4375. The total time spent today was 40 minutes performing chart prep, review of data and visit with the patient. documented in this encounter Plan of Treatment Upcoming Encounters Date Type Department Care Team (Late st Contact Info) Description 06/03/2024 1:00 PM [employer] Appointment [facility] - Rheumatology [address] [place] [address] 06/03/2024 2:00 PM [employer] Office Visit [facility] - Rheumatology [address] [place] [address] Gloria Smith MD [address] [place] [phone] documented as of this encounter Procedures Procedure [...] Resulting Agency Comment Lab Testing performed at: [facility] [address] [address] ?? Ziyad PENNY [id number] Gloria Smith MD LAB - CHEMISTRY MARII ARAUJO [facility] INSURANCE BILL [address] [place] [address] * VITAMIN D 25-HYDROXY (02/10/2022 9:46 AM CDT) Vitamin D, 25 Hydroxy 52.1 30 - 100 ng/mL [facility] INSURANCE BILL Comment: Vitamin D Status: ?Deficiency ? <20 ? ng/mL ?Insufficiency ?? 20-30 ??ng/mL ?Sufficiency ? 30-100 ng/mL ?Toxicity ? >100 ?ng/mL Blood BLOOD SPECIMEN / Unknown 02/10/2022 9:46 AM CDT 02/10/2022 Narrative Resulting Agency Comment Lab Testing performed at: [facility] [address] [address] ?? Ziyad PENNY [id number] Gloria Smith MD LAB - CHEMISTRY MARII ARAUJO Performing Organization Address City/[facility]/ZIP Co de Phone Number [facility] INSURANCE BILL [address] [place] [address] * QUANTIFERON TB-GOLD (02/10/2022 9:44 AM CDT) [...] Resulting Agency Comment Lab Testing performed at: [facility] [address] [facility] ??[facility] [phone] Gloria Smith MD LAB - CHEMISTRY MARII ARAUJO Performing Organization Address City/[facility]/ZIP Co de Phone Number [facility] INSURANCE BILL [address] [place] [address] documented in this encounter Visit Diagnoses Diagnosis 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
--- OUTSIDE RECORDS SUMMARY | 2024-05-03 08:56 | XMS_ITS | Encounter Summary ---
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, multiple sites (HCC) Procedures RI GOLIMUMAB FOR IV USE 1MG Gloria Smith MD [address] [place] [address] [address] Referral ID Status Reason Start Date Expiration Date Visits Re quested Visits Authorized [id number] Closed 10/19/2020 04/29/2021 1 8 Encounter Details Date Type Department Care Team (Late st Contact Info) Description 04/05/2021 12:49 PM TUBE MAKING MACHINE OPERATOR - 04/05/2021 11:59 PM TUBE MAKING MACHINE OPERATOR Hospital Encounter [facility] Medical [facility] - Rheumatology [address] [place] [address] Gloria Smith MD [address] [place] [address] Discharge Disposition: Home or Self [...] COVID-19? No / Unsure 04/05/2021 1:49 PM TUBE MAKING MACHINE OPERATOR documented as of this encounter Last Filed Vital Signs Vital Sign Reading Time Taken Comments Blood Pressure 132/74 04/05/2021 1:07 PM TUBE MAKING MACHINE OPERATOR Pulse 61 04/05/2021 1:07 PM TUBE MAKING MACHINE OPERATOR Temperature 36.8 ??C (98.3 ??F) 04/05/2021 1:07 PM CS T Respiratory Rate 18 04/05/2021 1:07 PM TUBE MAKING MACHINE OPERATOR Oxygen Saturation - - Inhaled Oxygen Concentration - - Weight 97 kg (213 lb 12.8 oz) 04/05/2021 1:07 PM TUBE MAKING MACHINE OPERATOR Height - - Body Mass Index 30.68 02/08/2021 2:29 PM CDT documented in this encounter Discharge Instructions * Discharge Instructions* Jody Sahu RN - 04/05/2021 1:43 PM TUBE MAKING MACHINE OPERATOR [place] Rheumatology Post Infusion instructions You have [...] through Sunday 9-5 call the office at [phone] After hours or on the weekend call the exchange at [phone] If you have had lab work done [...] Hospital as your provider. Jody Sahu RN MAKING MACHINE OPERATOR documented in this encounter Medications at Time of Discharge Medication Sig Dispensed Refills Start Date End Date atorvastatin (LIPITOR) 40 MG tablet Take 1 (one) tablet by mouth at bedtime eisknljjrio-sgou-js lysorb, PF, 0.5-1-0.5 % SOLN Instill 1 [...] - 04/05/2021 1:44 PM CST JOSE Deng [id number] 04/05/2021 Diagnosis: Rheumatoid arthritis without rheumatoid factor, [...] Next treatment? 8 weeks Jody Sahu RN MAKING MACHINE OPERATOR documented in this encounter Plan of Treatment Upcoming Encounters Date Type Department Care Team (Late st Contact Info) Description 06/03/2024 1:00 PM TUBE MAKING MACHINE OPERATOR Appointment [facility] - Rheumatology [address] [place] [address] [phone] 06/03/2024 2:00 PM TUBE MAKING MACHINE OPERATOR Office Visit [facility] - Rheumatology [address] [place] [address] Gloria Smith MD [address] [place] [phone] documented as of this encounter Visit Diagnoses [...] filter. $ New Bag/Syringe 04/05/2021 1:21 PM TUBE MAKING MACHINE OPERATOR 200 mg 200 mL/hr documented in this encounter Care Teams Scallop Shucker Relationship Specialty Start Date End Date Tomas Hyman MD [address] [address] [address] [place] [address] PCP - General Family Medicine 09/05/18 Isidro Heredia MD Rheumatology 02/09/11 documented as of this encounter
--- OUTSIDE RECORDS SUMMARY | 2024-05-03 08:56 | XMS_ITS | Encounter Summary ---
Author Organization [facility] Address [address] [place] [address] Care Team Providers Care Machine Setter Supervisor Name Role Phone Isidro Heredia MD Unavailable [phone] Tomas Hyman MD Primary Care Provider [phone] Encounter Details Date Type Department Care Team [...] Contact Info) Description 06/03/2024 1:00 PM SENIOR SQL DATABASE DEVELOPER Appointment [facility] - Rheumatology [address] [place] [address] 06/03/2024 2:00 PM SENIOR SQL DATABASE DEVELOPER Office Visit [facility] - Rheumatology [address] [place] [address] Gloria Smith MD [address] [place] [phone] documented as of this encounter Visit Diagnoses Not on filedocumented in this encounter Care Teams Machine Setter Supervisor Relationship Specialty Start Date End Date Tomas Hyman MD [address] [facility] [address] [place] [address] PCP - General Family Medicine 09/05/18 Isidro Heredia MD Rheumatology 02/09/11 documented as of this encounter
--- OUTSIDE RECORDS SUMMARY | 2024-05-03 08:56 | XMS_ITS | Encounter Summary ---
Author Organization [facility] Address [address] [facility] [place] [address] Care Team Providers Care Ell Tutor Name Role Phone Isidro Heredia MD Unavailable [phone] Tomas Hyman MD Primary Care Provider [phone] Reason for Referral * OP/Amb RFL Auth (Routine) - Closed Specialty Diagnoses / Procedures Referred By Contsarahi t Referred To Contact Diagnoses Right shoulder pain, unspecified chronicity Procedures MS DRAIN/INJECT LARGE JOINT/BURSA Gloria Smith MD [address] [place] [address] Referral ID Status Reason Start Date Expiration Date Visits Re quested Visits Authorized [id number] Closed 06/03/2021 06/03/2022 1 1 NCIAL INTERNSHIP Reason for Visit * Reason Comments Rheumatoid Arthritis Encounter Details Date Type Department Care Team (Late st Contact Info) Description 06/03/2021 1:00 PM FINANCIAL INTERNSHIP Office Visit [facility] - Rheumatology [address] [place] [address] Gloria Smith MD [facility] [place] [address] Rheumatoid arthritis of multiple sites [...] COVID-19? No / Unsure 06/03/2021 12:36 PM FINANCIAL INTERNSHIP documented as of this encounter Last Filed Vital Signs Vital Sign Reading Time Taken Comments Blood Pressure 135/78 06/03/2021 12:46 PM FINANCIAL INTERNSHIP Pulse 106 06/03/2021 12:46 PM FINANCIAL INTERNSHIP Temperature - - Respiratory Rate - - Oxygen Saturation - - Inhaled Oxygen Concentration - - Weight 95.7 kg (211 lb) 06/03/2021 12:46 PM FINANCIAL INTERNSHIP Height 177.8 cm (5' 10 ) 06/03/2021 12:46 PM FINANCIAL INTERNSHIP Body Mass Index 30.28 06/03/2021 12:46 PM FINANCIAL INTERNSHIP documented in this encounter Progress Notes * [...] in MCP and PIP joints bilaterally. Hand molder hand is decreased bilaterally. Tenderness in right shoulder. [...] bone density scan - took alendronate from [id number]. The total time spent today was 40 minutes performing chart prep, review of data and visit with the patient. NCIAL INTERNSHIP documented in this encounter Plan of Treatment Upcoming Encounters Date Type Department Care Team (Late st Contact Info) Description 06/03/2024 1:00 PM FINANCIAL INTERNSHIP Appointment [facility] - Rheumatology [address] [place] [address] [phone] 06/03/2024 2:00 PM FINANCIAL INTERNSHIP Office Visit [facility] - Rheumatology [address] [place] [address] [phone] Gloria Smith MD [address] [place] [phone] Scheduled Orders Name Type Priority Associated Diagnoses [...] of this report has been sent to [facility] Resulting Agency Comment Lab Testing performed at: [facility] [address] [id number] [facility] ??[facility] [id number] Gloria Smith MD LAB - CHEMISTRY MARII ARAUJO [facility] INSURANCE BILL [address] [place] [address] * (ABNORMAL) CBC WITH DIFFERENTIAL (07/27/2021 11:07 [...] this report has been sent to [facility] Resulting Agency Comment [facility] ??[facility] [id number] Gloria Smith MD LAB - HEMATOLOGY ORD ERABLES [facility] INSURANCE BILL [address] [place] [address] documented in this encounter Visit Diagnoses Diagnosis [...] at 1445 $ Given 06/03/2021 2:37 PM FINANCIAL INTERNSHIP Right Shoulder triamcinolone acetonide (Kenalog-40) injection 40 mg 40 mg, Intra-articular, ONCE, 1 dose, On Sun06/03/21 at 1445, Shake well before using. $ Given 06/03/2021 2:38 PM FINANCIAL INTERNSHIP 40 mg Righ t Shoulder documented in this encounter Care Teams Ell Tutor Relationship Specialty Start Date End Date Tomas Hyman MD [address] [facility] [address] [place] [address] PCP - General Family Medicine 09/05/18 Isidro Heredia MD Rheumatology 02/09/11 documented as of this encounter
--- OUTSIDE RECORDS SUMMARY | 2024-05-03 08:56 | XMS_ITS | Encounter Summary ---
Author Organization [facility] Address [address] [facility] [place] [address] Care Team Providers Care Recruiting Associate Name Role Phone Isidro Heredia MD Unavailable [phone] Tomas Hyman MD Primary Care Provider [phone] Reason for Visit * Reason Comments Follow-up Encounter Details Date Type Department Care Team (Late st Contact Info) Description 09/02/2021 11:00 AM CDT Office Visit [facility] - Rheumatology [address] [place] [address] Gloria Smith MD [address] [place] [phone] Rheumatoid arthritis of multiple sites with [...] ordered prednisone 60 mg taper, pending his quill reamer's approval. Followed by 5 mg b.i.d. at baseline. - he can increase tizanidine to 4 mg b.i.d. p.r.n.. Osteoporosis - Will repeat DEXA bone density scan - took alendronate from [id number]. The total time spent today was 40 minutes performing chart prep, review of data and visit with the patient. documented in this encounter Plan of Treatment Upcoming Encounters Date Type Department Care Team (Late st Contact Info) Description 06/03/2024 1:00 PM HEALTH TYPE TECHNICIAN Appointment [facility] - Rheumatology [address] [place] [address] [phone] 06/03/2024 2:00 PM HEALTH TYPE TECHNICIAN Office Visit [facility] - Rheumatology [address] [place] [address] [phone] Gloria Smith MD [address] [place] [phone] documented as of this encounter Visit Diagnoses Diagnosis Rheumatoid arthritis of multiple sites with negative rheumatoid factor (HCC)- Primary documented in this encounter Care Teams Recruiting Associate Relationship Specialty Start Date End Date Tomas Hyman MD [address] [place] [address] PCP - General Family Medicine 09/05/18 Isidro Heredia MD Rheumatology 02/09/11 documented as of this encounter
--- OUTSIDE RECORDS SUMMARY | 2024-05-03 08:56 | XMS_ITS | Encounter Summary ---
Author Organization [facility] Address [address] [facility] [place] [address] Care Team Providers Care Port Purser Name Role Phone Isidro Heredia MD Unavailable [phone] Tomas Hyman MD Primary Care Provider [phone] Reason for Visit * Treatment (Routine) - Closed Specialty Diagnoses / Procedures Referred By Lawrence shah Referred To Contact Infusion Therapy Nurse Diagnoses Rheumatoid arthritis without rheumatoid factor, multiple sites (HCC) Procedures MD GOLIMUMAB FOR IV USE 1MG Gloria Smith MD [address] [place] [address] [address] Referral ID Status Reason Start Date Expiration Date Visits Re quested Visits Authorized [id number] Closed 05/12/2021 04/29/2022 1 6 Encounter Details Date Type Department Care Team (Late st Contact Info) Description 06/03/2021 11:51 AM ECOLOGICAL TECHNICAL OFFICER - 06/03/2021 11:59 PM ECOLOGICAL TECHNICAL OFFICER Hospital Encounter [facility] Medical [facility] - Rheumatology [address] [place] [address] Gloria Smith MD [address] [place] [address] Discharge Disposition: Home or Self [...] COVID-19? No / Unsure 06/03/2021 12:36 PM ECOLOGICAL TECHNICAL OFFICER documented as of this encounter Last Filed Vital Signs Vital Sign Reading Time Taken Comments Blood Pressure 135/78 06/03/2021 12:16 PM ECOLOGICAL TECHNICAL OFFICER Pulse 106 06/03/2021 12:16 PM ECOLOGICAL TECHNICAL OFFICER Temperature 36.4 ??C (97.6 ??F) 06/03/2021 12:[address] Respiratory Rate 18 06/03/2021 12:16 PM ECOLOGICAL TECHNICAL OFFICER Oxygen Saturation - - Inhaled Oxygen Concentration - - Weight 95.7 kg (211 lb) 06/03/2021 12:16 PM ECOLOGICAL TECHNICAL OFFICER Height - - Body Mass Index 30.28 02/08/2021 2:29 PM CDT documented in this encounter Discharge Instructions * Discharge Instructions* Jody Sahu RN - 06/03/2021 12:23 PM ECOLOGICAL TECHNICAL OFFICER [place] Rheumatology Post Infusion instructions You have [...] through Sunday 9-5 call the office at [phone] After hours or on the weekend call the exchange at [phone] If you have had lab work done [...] Hospital as your provider. Jody Sahu RN OGICAL TECHNICAL OFFICER documented in this encounter Medications at Time of Discharge Medication Sig Dispensed Refills Start Date End Date atorvastatin (LIPITOR) 40 MG tablet Take 1 (one) tablet by mouth at bedtime alrbuenkuak-nmoc-vl lysorb, PF, 0.5-1-0.5 % SOLN Instill 1 [...] - 06/03/2021 12:33 PM CST JOSE Deng [id number] 06/03/2021 Diagnosis: Rheumatoid arthritis without rheumatoid factor, multiple sites [M06.09]. Pt denies symptoms of infection or antibiotic use, no open wounds, or recent surgery, or plans for surgery in the next couple of weeks. Pt is aware that we use the 0-10 pain scale to assess discomfort. 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 first front ventilator pt signs consent for treatment for this [...] Next treatment? 8 weeks Jody Sahu RN OGICAL TECHNICAL OFFICER documented in this encounter Plan of Treatment Upcoming Encounters Date Type Department Care Team (Late st Contact Info) Description 06/03/2024 1:00 PM ECOLOGICAL TECHNICAL OFFICER Appointment [facility] - Rheumatology [address] [place] [address] [phone] 06/03/2024 2:00 PM ECOLOGICAL TECHNICAL OFFICER Office Visit [facility] - Rheumatology [address] [place] [address] Gloria Smith MD [address] [place] [phone] documented as of this encounter Visit Diagnoses [...] filter. $ New Bag/Syringe 06/03/2021 12:29 PM ECOLOGICAL TECHNICAL OFFICER 200 mg 200 mL/hr documented in this encounter Care Teams Port Purser Relationship Specialty Start Date End Date Tomas Hyman MD [address] [place] [address] PCP - General Family Medicine 09/05/18 Isidro Heredia MD Rheumatology 02/09/11 documented as of this encounter
--- OUTSIDE RECORDS SUMMARY | 2024-05-03 08:56 | XMS_ITS | Encounter Summary ---
Author Organization [facility] Address [address] [facility] [place] [address] Care Team Providers Care Fisher Crab Name Role Phone Isidro Heredia MD Unavailable [phone] Tomas Hyman MD Primary Care Provider [phone] Reason for Visit * Treatment (Routine) - Closed Specialty Diagnoses / Procedures Referred By Lawrence shah Referred To Contact Infusion Therapy Nurse Diagnoses Rheumatoid arthritis without rheumatoid factor, multiple sites (HCC) Procedures DE GOLIMUMAB FOR IV USE 1MG Gloria Smith MD [address] [place] [address] [address] Referral ID Status Reason Start Date Expiration Date Visits Re quested Visits Authorized [id number] Closed 10/19/2020 04/29/2021 1 8 Encounter Details Date Type Department Care Team (Late st Contact Info) Description 02/08/2021 1:51 PM CDT - 02/08/2021 11:59 PM CDT Hospital Encounter [facility] Medical [facility] - Rheumatology [address] [place] [address] Gloria Smith MD [address] [place] [address] Discharge Disposition: Home or Self [...] Sahu RN - 02/08/2021 2:21 PM CDT [place] Rheumatology Post Infusion instructions [...] through Sunday 9-5 call the office at [phone] After hours or on the weekend call the exchange at [phone] If you have had lab work done [...] [facility]. Jody Sahu RN documented in this encounter Medications at Time of Discharge Medication Sig Dispensed Refills Start Date End Date atorvastatin (LIPITOR) 40 MG tablet Take 1 (one) tablet by mouth at bedtime sjfpfbcivar-gwhx-se lysorb, PF, 0.5-1-0.5 % SOLN Instill 1 [...] - 02/08/2021 2:19 PM CDT JOSE Deng [id number] 02/08/2021 Diagnosis: Rheumatoid arthritis without rheumatoid factor, [...] st Contact Info) Description 06/03/2024 1:00 PM RESIDENTIAL GAS HEAT TECHNICIAN Appointment [facility] - Rheumatology [address] [place] [address] 06/03/2024 2:00 PM RESIDENTIAL GAS HEAT TECHNICIAN Office Visit [facility] - Rheumatology [address] [place] [address] Gloria Smith MD [address] [place] [phone] documented as of this encounter Visit [...] mL/hr documented in this encounter Care Teams Fisher Crab Relationship Specialty Start Date End Date Tomas Hyman MD [address] [facility] [address] [place] [address] PCP - General Family Medicine 09/05/18 Isidro Heredia MD Rheumatology 02/09/11 documented as of this encounter
--- OUTSIDE RECORDS SUMMARY | 2024-05-03 08:56 | XMS_ITS | Encounter Summary ---
Author Organization [facility] Address [address] [facility] [place] [address] Care Team Providers Care Housekeeper Cleaning Cooking Name Role Phone Isidro Heredia MD Unavailable [phone] Tomas Hyman MD Primary Care Provider [phone] Encounter Details Date Type Department Care Team [...] COVID-19? No / Unsure 06/03/2021 12:36 PM COLLEGE PROFESSOR documented as of this encounter Plan of Treatment Upcoming Encounters Date Type Department Care Team (Late st Contact Info) Description 06/03/2024 1:00 PM COLLEGE PROFESSOR Appointment [facility] - Rheumatology [address] [place] [address] 06/03/2024 2:00 PM COLLEGE PROFESSOR Office Visit [facility] - Rheumatology [address] [place] [address] Gloria Smith MD [address] [place] [phone] documented as of this encounter Visit Diagnoses Not on filedocumented in this encounter Care Teams Housekeeper Cleaning Cooking Relationship Specialty Start Date End Date Tomas Hyman MD [address] [place] [address] PCP - General Family Medicine 09/05/18 Isidro Heredia MD Rheumatology 02/09/11 documented as of this encounter
--- OUTSIDE RECORDS SUMMARY | 2024-05-03 08:57 | XMS_ITS | Encounter Summary ---
Author Organization [facility] Address [address] [facility] [place] [address] Care Team Providers Care Windlace Machine Operator Name Role Phone Isidro Heredia MD Unavailable [phone] Tomas Hyman MD Primary Care Provider [phone] Reason for Visit * Reason Comments Follow-up Encounter Details Date Type Department Care Team (Late st Contact Info) Description 10/19/2020 2:40 PM CDT Office Visit [facility] - Rheumatology [address] [place] [address] Gloria Smith MD [address] [place] [phone] Rheumatoid arthritis of multiple sites with [...] bone density scan - took alendronate from 4207-7760. documented in this encounter Plan of Treatment Upcoming Encounters Date Type Department Care Team (Late st Contact Info) Description 06/03/2024 1:00 PM DATA SERVICES DEVELOPER Appointment [facility] - Rheumatology [address] [place] [address] [phone] 06/03/2024 2:00 PM DATA SERVICES DEVELOPER Office Visit [facility] - Rheumatology [address] [place] [address] Gloria Smith MD [address] [place] [phone] documented as of this encounter Procedures Procedure [...] Resulting Agency Comment Lab Testing performed at: [address] ?? [facility] [id number] Gloria Smith MD LAB - CHEMISTRY [place] VAN [facility] INSURANCE BILL [address] [place] [address] * CBC WITH DIFFERENTIAL (10/19/2020 3:40 PM CDT) [facility] WBC 9.5 4.4 - 10.7 x10E9/L [...] x10E9/L [facility] INSURANCE BILL Comment:MPV FL BLOOD ([facility]) 1 1.3 fl 9.4-12.9 Granulocytes % 49.7 [...] Resulting Agency Comment Lab Testing performed at: [facility] [address] [address] ?? 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
--- OUTSIDE RECORDS SUMMARY | 2024-05-03 08:57 | XMS_ITS | Encounter Summary ---
Author Organization [facility] Address [address] [facility] [address] Care Team Providers Care Animal Care Giver Name Role Phone Isidro Heredia MD Unavailable [phone] Tomas Hyman MD Primary Care Provider [phone] Reason for Visit * Treatment (Routine) - Closed Specialty Diagnoses / Procedures Referred By Contact Referred To Contact Infusion Therapy Nurse / Rheumatology Diagnoses Rheumatoid arthritis without rheumatoid factor, multiple sites (HCC) Procedures NE INFLIXIMAB INJECTION Gloria Smith MD [address] [place] [address] [facility] [address] [address] Referral ID Status Reason Start Date Expiration Date Visits Re quested Visits Authorized [id number] Closed 05/04/2020 04/29/2021 12 12 Encounter Details Date Type Department Care Team (Late st Contact Info) Description 10/19/2020 1:54 PM CDT - 10/19/2020 11:59 PM CDT Hospital Encounter [facility] Medical [facility] - Rheumatology [address] [place] [address] Gloria Smith MD [facility] [place] [address] Discharge Disposition: Home or Self [...] Sahu RN - 10/19/2020 2:40 PM CDT [place] Rheumatology Post Infusion instructions [...] through Sunday 9-5 call the office at [phone] After hours or on the weekend call the exchange at [phone] If you have had lab work done [...] 1 (one) tablet by mouth at bedtime klacakyrrzn-pkvl-xtx ysorb, PF, 0.5-1-0.5 % SOLN Instill 1 [...] - 10/19/2020 2:38 PM CDT JOSE Deng [id number] 10/19/2020 Diagnosis: Rheumatoid arthritis without rheumatoid factor, [...] st Contact Info) Description 06/03/2024 1:00 PM INSECTICIDE EXPERT Appointment [facility] - Rheumatology [address] [place] [address] 06/03/2024 2:00 PM INSECTICIDE EXPERT Office Visit [facility] - Rheumatology [address] [place] [address] Gloria Smith MD [address] [place] [phone] documented as of this encounter Visit [...] mL/hr documented in this encounter Care Teams Animal Care Giver Relationship Specialty Start Date End Date Tomas Hyman MD [address] [place] [address] PCP - General Family Medicine 09/05/18 Isidro Heredia MD Rheumatology 02/09/11 documented as of this encounter
--- OUTSIDE RECORDS SUMMARY | 2024-05-03 08:57 | XMS_ITS | Encounter Summary ---
Author Organization [facility] Address [address] [facility] [place] [address] Care Team Providers Care Hat And Cap Parts Cutter Hand Name Role Phone Isidro Heredia MD Unavailable [phone] Tomas Hyman MD Primary Care Provider [phone] Reason for Visit * Reason Onset Date Comments MEDICATION REFILL 07/12/2020 MEDICATION REFILL 07/20/2020 Encounter Details Date Type Department Care Team (Late st Contact Info) Description 07/12/2020 Refill [facility] Medical [facility] - Rheumatology [address] [place] [address] Gloria Smith MD [address] [place] [address] MEDICATION REFILL; MEDICATION REFILL Social History [...] COVID-19? No / Unsure 06/29/2020 11:44 AM SUPERVISOR HOSPITALITY HOUSE documented as of this encounter Miscellaneous Notes [...] Contact Info) Description 06/03/2024 1:00 PM SUPERVISOR HOSPITALITY HOUSE Appointment [facility] - Rheumatology [address] [place], [place] [id number] 06/03/2024 2:00 PM SUPERVISOR HOSPITALITY HOUSE Office Visit [facility] - Rheumatology [address] [place] [address] Gloria Smith MD [address] [place] [phone] documented as of this encounter Visit Diagnoses Not on filedocumented in this encounter Care Teams Hat And Cap Parts Cutter Hand Relationship Specialty Start Date End Date Tomas Hyman MD [address] [facility] [address] [place] [address] PCP - General Family Medicine 09/05/18 Isidro Heredia MD Rheumatology 02/09/11 documented as of this encounter
--- OUTSIDE RECORDS SUMMARY | 2024-05-03 08:57 | XMS_ITS | Encounter Summary ---
Author Organization [facility] Address [address] [facility] [place] [address] Care Team Providers Care Stock Plan Administrator Name Role Phone Isidro Heredia MD Unavailable [phone] Tomas Hyman MD Primary Care Provider [phone] Reason for Visit * Reason Comments Establish Care right hand Encounter Details Date Type Department Care Team (Late st Contact Info) Description 05/10/2020 9:45 AM REHABILITATION SERVICES MANAGER Office Visit [facility] Orthopedics [address] [place] [address] Nini Han MD [address] [place] [phone] Dupuytren's contracture (Primary Dx); Hand pain, [...] COVID-19? No / Unsure 05/04/2020 2:08 PM REHABILITATION SERVICES MANAGER documented as of this encounter Last Filed Vital Signs Vital Sign Reading Time Taken Comments Blood Pressure - - Pulse - - Temperature - - Respiratory Rate - - Oxygen Saturation - - Inhaled Oxygen Concentration - - Weight 102.1 kg (225 lb) 05/10/2020 10:26 AM REHABILITATION SERVICES MANAGER Height 177.8 cm (5' 10 ) 05/10/2020 10:26 AM REHABILITATION SERVICES MANAGER Body Mass Index 32.28 05/10/2020 10:26 AM REHABILITATION SERVICES MANAGER documented in this encounter Progress Notes * Eryn Matos - 05/10/2020 10:25 AM CST Right hand BILITATION SERVICES MANAGER documented in this encounter H&P Notes * [...] or problems. Nini Han M.D. CK/MedQ #: [id number] cc: Tomas Hyman BILITATION SERVICES MANAGER documented in this encounter Procedure Notes * Mora Delgado RT(R) - 05/10/2020 10:38 AM CSTAssociated Order(s): XR HAND RIGHT 3VW OR MORE See chart for xray results BILITATION SERVICES MANAGER documented in this encounter Plan of Treatment Upcoming Encounters Date Type Department Care Team (Late st Contact Info) Description 06/03/2024 1:00 PM REHABILITATION SERVICES MANAGER Appointment [facility] - Rheumatology [address] [place] [address] 06/03/2024 2:00 PM REHABILITATION SERVICES MANAGER Office Visit [facility] - Rheumatology [address] [place] [address] Gloria Smith MD [address] [place] [phone] documented as of this encounter Procedures Procedure Name Priority Date/Time Associated Diagnosis Comments XR HAND RIGHT 3VW OR MORE Routine 05/10/2020 10:37 AM REHABILITATION SERVICES MANAGER Hand pain, right documented in this encounter Results * XR HAND RIGHT 3VW OR MORE (05/10/2020 10:37 AM REHABILITATION SERVICES MANAGER) Anatomical Region Laterality Modality Wrist / Hand Computed Radiogr aphy Narrative 05/10/2020 10:38 AM REHABILITATION SERVICES MANAGER Mora Delgado, RT(R) ? 05/10/2020 11:39 AM See chart for xray results Nini Han MD DIAGNOSTIC IMAGING ORDERABLES documented in this encounter Visit Diagnoses Diagnosis Dupuytren's contracture- Primary Contracture of palmar fascia Hand pain, right Pain in limb Hand pain, right Pain in limb documented in this encounter Care Teams Stock Plan Administrator Relationship Specialty Start Date End Date Tomas Hyman MD [address] [facility] [address] [place] [address] PCP - General Family Medicine 09/05/18 Isidro Heredia MD Rheumatology 02/09/11 documented as of this encounter
--- OUTSIDE RECORDS SUMMARY | 2024-05-03 08:57 | XMS_ITS | Encounter Summary ---
Author Organization [facility] Address [address] [place] [address] Care Team Providers Care Farmworker Poultry Name Role Phone Isidro Heredia MD Unavailable Tomas Hyman MD Primary Care Provider [phone] Reason for Referral * OP/Amb RFL Auth (Routine) - Closed Specialty Diagnoses / Procedures Referred By Contsarahi t Referred To Contact Diagnoses Right shoulder pain, unspecified chronicity Procedures [place] DRAIN/INJECT LARGE JOINT/BURSA Gloria Smith MD [address] [place] [address] Referral ID Status Reason Start Date Expiration Date Visits Re quested Visits Authorized [id number] Closed 08/24/2020 08/24/2021 1 1 Reason for Visit * Reason Comments Follow-up Encounter Details Date Type Department Care Team (Late st Contact Info) Description 08/24/2020 11:40 AM CDT Office Visit [facility] - Rheumatology [address] [place] [address] Gloria Smith MD [facility] [place] [address] Rheumatoid arthritis of multiple sites [...] bone density scan - took alendronate from [id number]. documented in this encounter Miscellaneous Notes * Addendum Note - Chandrakant Madrid - 08/24/2020 1:50 PM CDTAddended by: CHANDRAKANT MADRID on: 08/24/2020 01:50 PM Modules accepted: Orders documented in this encounter Plan of Treatment Upcoming Encounters Date Type Department Care Team (Late st Contact Info) Description 06/03/2024 1:00 PM TRAFFIC SIGNAL TECHNICIAN Appointment [facility] - Rheumatology [address] [place] [address] 06/03/2024 2:00 PM TRAFFIC SIGNAL TECHNICIAN Office Visit [facility] - Rheumatology [address] [place] [address] Gloria Smith MD [address] [place] [phone] documented as of this encounter Procedures [...] Resulting Agency Comment [facility] performed at: [facility] [address] [facility] ??[facility] [id number] Gloria Smith MD LAB - CHEMISTRY MARII ARAUJO [facility] INSURANCE BILL [address] [place] [address] * (ABNORMAL) COMPREHENSIVE METABOLIC PANEL (08/24/2020 12:33 [...] Lab Testing performed at: [facility] [id number] [place], [place] [address]cierra Ibarra ?? [place] [id number] Gloria Smith MD LAB - CHEMISTRY MARII ARAUJO [facility] INSURANCE BILL [address] [place] [address] * (ABNORMAL) CBC WITH DIFFERENTIAL (08/24/2020 12:33 [...] x10E9/L [facility] INSURANCE BILL Comment:MPV FL BLOOD ([facility]) 1 1.7 fl 9.4-12.9 Granulocytes % 42.0(L) [...] Lab Testing performed at: [facility] [address] [facility] ?? [place] [id number] Gloria Smith MD LAB - HEMATOLOGY ORD ERABLES [facility] INSURANCE BILL [address] [place] [address] documented in this encounter Visit Diagnoses Diagnosis [...] Shoulder documented in this encounter Care Teams Farmworker Poultry Relationship Specialty Start Date End Date Tomas Hyman MD [address] [facility] [address] [place] [address] PCP - General Family Medicine 09/05/18 Isidro Heredia MD Rheumatology 02/09/11 documented as of this encounter
--- OUTSIDE RECORDS SUMMARY | 2024-05-03 08:57 | XMS_ITS | Encounter Summary ---
Author Organization [facility] Address [address] [place] [address] Care Team Providers Care Care Navigator Name Role Phone Isidro Heredia MD Unavailable [phone] Tomas Hyman MD Primary Care Provider [phone] Encounter Details Date Type Department Care Team [...] st Contact Info) Description 06/03/2024 1:00 PM ACADEMIC AFFAIRS DEAN Appointment [facility] - Rheumatology [address] [place] [address] 06/03/2024 2:00 PM ACADEMIC AFFAIRS DEAN Office Visit [facility] - Rheumatology [address] [place] [address] Gloria Smith MD [address] [place] [phone] documented as of this encounter Visit Diagnoses Not on filedocumented in this encounter Care Teams Care Navigator Relationship Specialty Start Date End Date Tomas Hyman MD [address] [facility] [address] [place] [address] PCP - General Family Medicine 09/05/18 Isidro Heredia MD Rheumatology 02/09/11 documented as of this encounter
--- OUTSIDE RECORDS SUMMARY | 2024-05-03 08:57 | XMS_ITS | Encounter Summary ---
Author Organization [facility] Address [address] [facility] [place] [address] Care Team Providers Care Meat Carver Name Role Phone Isidro Heredia MD Unavailable [phone] Tomas Hyman MD Primary Care Provider [phone] Reason for Visit * Reason Onset Date Comments MEDICATION REFILL 01/17/2021 Encounter Details Date Type Department Care Team (Late st Contact Info) Description 01/17/2021 Refill [facility] Medical [facility] - Rheumatology [address] [place] [address] Gloria Smith MD [address] [place] [phone] MEDICATION REFILL Social History Tobacco Use [...] st Contact Info) Description 06/03/2024 1:00 PM TOBACCO BLENDER Appointment [facility] - Rheumatology [address] [place] [address] 06/03/2024 2:00 PM TOBACCO BLENDER Office Visit [facility] - Rheumatology [address] [place] [address] Gloria Smith MD [address] [place] [phone] documented as of this encounter Visit Diagnoses Diagnosis 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
--- OUTSIDE RECORDS SUMMARY | 2024-05-03 08:57 | XMS_ITS | Encounter Summary ---
Author Organization [facility] Address [address] [facility] [place] [address] Care Team Providers Care Production Technician Name Role Phone Isidro Heredia MD Unavailable [phone] Tomas Hyman MD Primary Care Provider [phone] Reason for Visit * Treatment (Routine) - Closed Specialty Diagnoses / Procedures Referred By Contact Referred To Contact Infusion Therapy Nurse / Rheumatology Diagnoses Rheumatoid arthritis without rheumatoid factor, multiple sites (HCC) Procedures [place] INFLIXIMAB INJECTION Gloria Smith MD [address] [place] [address] [facility] [address] [address] Referral ID Status Reason Start Date Expiration Date Visits Re quested Visits Authorized [id number] Closed 05/04/2020 04/29/2021 12 12 Encounter Details Date Type Department Care Team (Late st Contact Info) Description 09/21/2020 12:46 PM CDT - 09/21/2020 11:59 PM CDT Hospital Encounter [facility] Medical [facility] - Rheumatology [address] [place] [address] Gloria Smith MD [facility] [place] [address] Discharge Disposition: Home or Self [...] Sahu RN - 09/21/2020 1:37 PM CDT [place] Rheumatology Post Infusion instructions [...] through Sunday 9-5 call the office at [phone] After hours or on the weekend call the exchange at [phone] If you have had lab work done [...] 1 (one) tablet by mouth at bedtime skxzuqfexmq-ybmm-kbt ysorb, PF, 0.5-1-0.5 % SOLN Instill 1 [...] - 09/21/2020 1:32 PM CDT JOSE Deng [id number] 09/21/2020 Diagnosis: Rheumatoid arthritis without rheumatoid factor, multiple sites [M06.09]. Pt denies symptoms of infection or antibiotic use, no open wounds, or recent surgery, or plans for surgery in the next couple of weeks. Pt is aware that we use the 0-10 pain scale to assess discomfort. 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 commercial front load operator pt signs consent for treatment for [...] st Contact Info) Description 06/03/2024 1:00 PM LIVING MANAGER Appointment [facility] - Rheumatology [address] [place] [phone] 06/03/2024 2:00 PM LIVING MANAGER Office Visit [facility] - Rheumatology [address] [place] [address] Gloria Smith MD [address] [place] [phone] documented as of this encounter Visit Diagnoses [...] documented in this encounter Care Teams Production Technician Relationship Specialty Start Date End Date Tomas Hyman MD [address] [place] [address] PCP - General Family Medicine 09/05/18 Isidro Heredia MD Rheumatology 02/09/11 documented as of this encounter
--- OUTSIDE RECORDS SUMMARY | 2024-05-03 08:57 | XMS_ITS | Encounter Summary ---
Author Organization [facility] Address [address] [facility] [place] [address] Care Team Providers Care Manager Inside Name Role Phone Isidro Heredia MD Unavailable [phone] Tomas Hyman MD Primary Care Provider [phone] Reason for Visit * Reason Onset Date Comments MEDICATION REFILL 07/27/2020 Encounter Details Date Type Department Care Team (Late st Contact Info) Description 07/27/2020 Refill [facility] Medical [facility] - Rheumatology [address] [place] [address] Gloria Smith MD [address] [place] [phone] MEDICATION REFILL Social History Tobacco Use [...] st Contact Info) Description 06/03/2024 1:00 PM ENGRAVER LETTER Appointment [facility] - Rheumatology [address] [place] [address] 06/03/2024 2:00 PM ENGRAVER LETTER Office Visit [facility] - Rheumatology [address] [place] [address] Gloria Smith MD [address] [place] [phone] documented as of this encounter Visit Diagnoses Not on filedocumented in this encounter Care Teams Manager Inside Relationship Specialty Start Date End Date Tomas Hyman MD [address] [place] [address] PCP - General Family Medicine 09/05/18 Isidro Heredia MD Rheumatology 02/09/11 documented as of this encounter
--- OUTSIDE RECORDS SUMMARY | 2024-05-03 08:57 | XMS_ITS | Encounter Summary ---
Author Organization [facility] Address [address] [facility] [place] [address] Care Team Providers Care Technical Delivery Manager Name Role Phone Isidro Heredia MD Unavailable [phone] Tomas Hyman MD Primary Care Provider [phone] Encounter Details Date Type Department Care Team [...] COVID-19? No / Unsure 06/29/2020 11:44 AM PYRIDINE OPERATOR documented as of this encounter Plan of Treatment Upcoming Encounters Date Type Department Care Team (Late st Contact Info) Description 06/03/2024 1:00 PM PYRIDINE OPERATOR Appointment [facility] - Rheumatology [address] [place] [address] 06/03/2024 2:00 PM PYRIDINE OPERATOR Office Visit [facility] - Rheumatology [address] [place] [address] Gloria Smith MD [address] [place] [phone] documented as of this encounter Visit Diagnoses Not on filedocumented in this encounter Care Teams Technical Delivery Manager Relationship Specialty Start Date End Date Tomas Hyman MD [address] [facility] [address] [place] [address] PCP - General Family Medicine 09/05/18 Isidro Heredia MD Rheumatology 02/09/11 documented as of this encounter
--- OUTSIDE RECORDS SUMMARY | 2024-05-03 08:57 | XMS_ITS | Encounter Summary ---
Author Organization [facility] Address [address] [facility] [place] [address] Care Team Providers Care Credit Relationship Manager Name Role Phone Isidro Heredia MD Unavailable [phone] Tomas Hyman MD Primary Care Provider [phone] Reason for Visit * Reason Onset Date Comments Question 09/13/2020 Encounter Details Date Type Department Care Team (Late st Contact Info) Description 09/13/2020 Telephone [facility] Medical [facility] - Rheumatology [address] [place] [address] Gloria Smith MD [address] [place] [phone] Question Social History Tobacco Use Types [...] st Contact Info) Description 06/03/2024 1:00 PM HOTEL SECURITY OFFICER Appointment [facility] - Rheumatology [address] [place] [phone] 06/03/2024 2:00 PM HOTEL SECURITY OFFICER Office Visit [facility] - Rheumatology [address] [place] [phone] Gloria Smith MD [address] [place] [phone] documented as of this encounter Visit Diagnoses Not on filedocumented in this encounter Care Teams Credit Relationship Manager Relationship Specialty Start Date End Date Tomas Hyman MD [address] [facility] [address] [place] [address] PCP - General Family Medicine 09/05/18 Isidro Heredia MD Rheumatology 02/09/11 documented as of this encounter
--- OUTSIDE RECORDS SUMMARY | 2024-05-03 08:57 | XMS_ITS | Encounter Summary ---
Author Organization [facility] Address [address] [facility] [place] [address] Care Team Providers Care Curriculum And Instruction Director Name Role Phone Isidro Heredia MD Unavailable [phone] Tomas Hyman MD Primary Care Provider [phone] Reason for Visit * Reason Onset Date Comments MEDICATION REFILL 10/29/2020 Encounter Details Date Type Department Care Team (Late st Contact Info) Description 10/29/2020 Refill [facility] - Rheumatology [address] [place] [address] Gloria Smith MD [address] [place] [phone] MEDICATION REFILL Social History Tobacco Use [...] st Contact Info) Description 06/03/2024 1:00 PM APNS Appointment [facility] - Rheumatology [address] [place] [address] 06/03/2024 2:00 PM APNS Office Visit [facility] - Rheumatology [address] [place] [address] Gloria Smith MD [address] [place] [phone] documented as of this encounter Visit Diagnoses Not on filedocumented in this encounter Care Teams Curriculum And Instruction Director Relationship Specialty Start Date End Date Tomas Hyman MD [address] [place] [address] PCP - General Family Medicine 09/05/18 Isidro Heredia MD Rheumatology 02/09/11 documented as of this encounter
--- OUTSIDE RECORDS SUMMARY | 2024-05-03 08:57 | XMS_ITS | Encounter Summary ---
Author Organization [facility] Address [address] [facility] [place] [address] Care Team Providers Care Principal Account Clerk Name Role Phone Isidro Heredia MD Unavailable [phone] Tomas Hyman MD Primary Care Provider [phone] Reason for Visit * Treatment (Routine) - Closed Specialty Diagnoses / Procedures Referred By Contact Referred To Contact Infusion Therapy Nurse / Rheumatology Diagnoses Rheumatoid arthritis without rheumatoid factor, multiple sites (HCC) Procedures [place] INFLIXIMAB INJECTION Gloria Smith MD [address] [place] [address] [facility] [address] [address] Referral ID Status Reason Start Date Expiration Date Visits Re quested Visits Authorized [id number] Closed 05/04/2020 04/29/2021 12 12 Encounter Details Date Type Department Care Team (Late st Contact Info) Description 06/29/2020 10:57 AM WOOL SCOURER - 06/29/2020 11:59 PM WOOL SCOURER Hospital Encounter [facility] Medical [facility] - Rheumatology [address] [place] [address] Gloria Smith MD [address] [place], [place] [address], [place] [address] Discharge Disposition: Home or Self [...] COVID-19? No / Unsure 06/29/2020 11:44 AM WOOL SCOURER documented as of this encounter Last Filed Vital Signs Vital Sign Reading Time Taken Comments Blood Pressure 130/74 06/29/2020 11:14 AM WOOL SCOURER Pulse 79 06/29/2020 11:14 AM WOOL SCOURER Temperature 36.6 ??C (97.9 ??F) 06/29/2020 11:[address] Respiratory Rate 18 06/29/2020 11:14 AM WOOL SCOURER Oxygen Saturation - - Inhaled Oxygen Concentration - - Weight 105.7 kg (233 lb) 06/29/2020 11:14 AM WOOL SCOURER Height - - Body Mass Index 33.43 05/10/2020 10:26 AM WOOL SCOURER documented in this encounter Discharge Instructions * Discharge Instructions* Jody Sahu RN - 06/29/2020 11:20 AM WOOL SCOURER [place] Rheumatology Post Infusion instructions You have [...] through Sunday 9-5 call the office at [phone] After hours or on the weekend call the exchange at [phone] If you have had lab work done [...] [facility] as your provider. Jody Sahu, TOVA SCOURER documented in this encounter Medications at Time of Discharge Medication Sig Dispensed Refills Start Date End Date atorvastatin (LIPITOR) 40 MG tablet Take 1 (one) tablet by mouth at bedtime cujnnzmnzzm-wgoi-wlr ysorb, PF, 0.5-1-0.5 % SOLN Instill 1 [...] 06/29/2020 11:40 AM CST JOSE Allred Deng [id number] 06/29/2020 Diagnosis: Rheumatoid arthritis without rheumatoid factor, multiple sites [M06.09]. Pt denies symptoms of infection or antibiotic use, no open wounds, or recent surgery, or plans for surgery in the next couple of weeks. Pt is aware that we use the 0-10 pain scale to assess discomfort. 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 front desk receptionist pt signs consent for treatment for this [...] Next treatment? 4 weeks Jody Sahu RN SCOURER documented in this encounter Plan of Treatment Upcoming Encounters Date Type Department Care Team (Late st Contact Info) Description 06/03/2024 1:00 PM WOOL SCOURER Appointment [facility] - Rheumatology [address] [place] [address] 06/03/2024 2:00 PM WOOL SCOURER Office Visit [facility] - Rheumatology [address] [place] [address] Gloria Smith MD [address] [place] [phone] documented as of this encounter Visit [...] filter. $ New Bag/Syringe 06/29/2020 11:32 AM WOOL SCOURER 600 mg 135 mL/hr documented in this encounter Care Teams Principal Account Clerk Relationship Specialty Start Date End Date Tomas Hyman MD [address] [place] [address] [place], [place] [phone] PCP - General Family Medicine 09/05/18 Isidro Heredia MD Rheumatology 02/09/11 documented as of this encounter
--- OUTSIDE RECORDS SUMMARY | 2024-05-03 08:57 | XMS_ITS | Encounter Summary ---
Author Organization [facility] Address [address] [facility] [place] [address] Care Team Providers Care Shooter'S Helper Name Role Phone Isidro Heredia MD Unavailable [phone] Tomas Hyman MD Primary Care Provider [phone] Reason for Visit * Treatment (Routine) - Closed Specialty Diagnoses / Procedures Referred By Contact Referred To Contact Infusion Therapy Nurse / Rheumatology Diagnoses Rheumatoid arthritis without rheumatoid factor, multiple sites (HCC) Procedures [place] INFLIXIMAB INJECTION Gloria Smith MD [address] [place] [address] [facility] [address] [address] Referral ID Status Reason Start Date Expiration Date Visits Re quested Visits Authorized [id number] Closed 05/04/2020 04/29/2021 12 12 Encounter Details Date Type Department Care Team (Late st Contact Info) Description 08/24/2020 10:53 AM CDT - 08/24/2020 11:59 PM CDT Hospital Encounter [facility] Medical [facility] - Rheumatology [address] [place] [address] Gloria Smith MD [facility] [place] [address] Discharge Disposition: Home or Self [...] Body Mass Index 34.52 06/29/2020 12:56 PM MAT ROLLER documented in this encounter Discharge Instructions * Discharge Instructions* Jody Sahu RN - 08/24/2020 11:10 AM CDT [place] Rheumatology Post Infusion instructions You have received [...] through Sunday 9-5 call the office at [phone] After hours or on the weekend call the exchange at [phone] If you have had lab work done [...] 1 (one) tablet by mouth at bedtime vfngomdffby-zxix-ydq ysorb, PF, 0.5-1-0.5 % SOLN Instill 1 [...] - 08/24/2020 11:34 AM CDT JOSE Deng [id number] 08/24/2020 Diagnosis: Rheumatoid arthritis without rheumatoid factor, [...] st Contact Info) Description 06/03/2024 1:00 PM MAT ROLLER Appointment [facility] - Rheumatology [address] [place] [address] [phone] 06/03/2024 2:00 PM MAT ROLLER Office Visit [facility] - Rheumatology [address] [place] [address] Gloria Smith MD [address] [place] [phone] documented as of this encounter Visit Diagnoses [...] mL/hr documented in this encounter Care Teams Shooter'S Helper Relationship Specialty Start Date End Date Tomas Hyman MD [address] [place] [address] PCP - General Family Medicine 09/05/18 Isidro Heredia MD Rheumatology 02/09/11 documented as of this encounter
--- OUTSIDE RECORDS SUMMARY | 2024-05-03 08:57 | XMS_ITS | Encounter Summary ---
Author Organization [facility] Address [address] [place] [address] Care Team Providers Care Armor Reconnaissance Specialist Name Role Phone Isidro Heredia MD Unavailable [phone] Tomas Hyman MD Primary Care Provider [phone] Encounter Details Date Type Department Care Team (Late Contact Info) Description 11/11/2020 Orders Only [facility] - Rheumatology [address] [facility], [address] [place] [address] Gloria Smith MD [address] [place] [address] Social History Tobacco Use Types [...] (Late Contact Info) Description 06/03/2024 1:00 PM NAVAL GUNFIRE SPOTTER Appointment [facility] - Rheumatology [address] [place] [address] 06/03/2024 2:00 PM NAVAL GUNFIRE SPOTTER Office Visit [facility] - Rheumatology [address] [place] [address] Gloria Smith MD [address] [place] [address] documented as of this encounter Visit Diagnoses Not on filedocumented in this encounter Care Teams Armor Reconnaissance Specialist Relationship Specialty Start Date End Date Tomas Hyman MD [address] [place] [address] PCP - General Family Medicine 09/05/18 Isidro Heredia MD Rheumatology 02/09/11 documented as of this encounter
--- OUTSIDE RECORDS SUMMARY | 2024-05-03 08:57 | XMS_ITS | Encounter Summary ---
Author Organization [facility] Address [address] [place] [address] Care Team Providers Care Patternmaker Pressure Cast Name Role Phone Isidro Heredia MD Unavailable [phone] Tomas Hyman MD Primary Care Provider [phone] Reason for Visit * Treatment (Routine) - Closed Specialty Diagnoses / Procedures Referred By Lawrence shah Referred To Contact Infusion Therapy Nurse Diagnoses Rheumatoid arthritis without rheumatoid factor, multiple sites (HCC) Procedures [place] GOLIMUMAB FOR IV USE 1MG Gloria Smith MD [address] [place] [address] [address] Referral ID Status Reason Start Date Expiration Date Visits Re quested Visits Authorized [id number] Closed 10/19/2020 04/29/2021 1 8 Encounter Details Date Type Department Care Team (Late st Contact Info) Description 11/16/2020 11:50 AM CDT - 11/16/2020 11:59 PM CDT Hospital Encounter [facility] Medical [facility] - Rheumatology [address] [place] [address] Gloria Smith MD [address] [place] [address] Discharge Disposition: Home or Self [...] Sahu RN - 11/16/2020 12:31 PM CDT [place] Rheumatology Post Infusion instructions You have [...] through Sunday 9-5 call the office at [phone] After hours or on the weekend call the exchange at [phone] If you have had lab work done [...] 1 (one) tablet by mouth at bedtime csdkqftumne-gvbm-rsy ysorb, PF, 0.5-1-0.5 % SOLN Instill 1 [...] - 11/16/2020 12:14 PM CDT JOSE Deng [id number] 11/16/2020 Diagnosis: Rheumatoid arthritis without rheumatoid factor, multiple sites [M06.09]. Pt denies symptoms of infection or antibiotic use, no open wounds, or recent surgery, or plans for surgery in the next couple of weeks. Pt is aware that we use the 0-10 pain scale to assess discomfort. 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 front office developer pt signs consent for [...] Contact Info) Description 06/03/2024 1:00 PM LABORER FRYER FARM Appointment [facility] - Rheumatology [address] [place] [address] 06/03/2024 2:00 PM LABORER FRYER FARM Office Visit [facility] - Rheumatology [address] [place] [address] Gloria Smith MD [address] [place] [phone] documented as of this encounter Visit [...] mL/hr documented in this encounter Care Teams Patternmaker Pressure Cast Relationship Specialty Start Date End Date Tomas Hyman MD [address] [address] [address] [place] [address] PCP - General Family Medicine 09/05/18 Isidro Heredia MD Rheumatology 02/09/11 documented as of this encounter
--- OUTSIDE RECORDS SUMMARY | 2024-05-03 08:57 | XMS_ITS | Encounter Summary ---
Author Organization [facility] Address [address] [facility] [place] [address] Care Team Providers Care Loom Control Chain Builder Name Role Phone Isidro Heredia MD Unavailable [phone] Tomas Hyman MD Primary Care Provider [phone] Encounter Details Date Type Department Care Team [...] st Contact Info) Description 06/03/2024 1:00 PM DRAFTING DETAILER Appointment [facility] - Rheumatology [address] [place] [address] 06/03/2024 2:00 PM DRAFTING DETAILER Office Visit [facility] - Rheumatology [address] [place] [address] Gloria Smith MD [address] [place] [address] documented as of this encounter Visit Diagnoses Not on filedocumented in this encounter Care Teams Loom Control Chain Builder Relationship Specialty Start Date End Date Tomas Hyman MD [address] [facility] [address] [place] [address] PCP - General Family Medicine 09/05/18 Isidro Heredia MD Rheumatology 02/09/11 documented as of this encounter
--- OUTSIDE RECORDS SUMMARY | 2024-05-03 08:57 | XMS_ITS | Encounter Summary ---
Author Organization [facility] Address [address] [place] [address] Care Team Providers Care Chemical Production Engineer Name Role Phone Isidro Heredia MD Unavailable [phone] Tomas Hyman MD Primary Care Provider [phone] Reason for Visit * Treatment (Routine) - Closed Specialty Diagnoses / Procedures Referred By Lawrence shah Referred To Contact Infusion Therapy Nurse Diagnoses Rheumatoid arthritis without rheumatoid factor, multiple sites (HCC) Procedures [place] GOLIMUMAB FOR IV USE 1MG Gloria Smith MD [address] [place] [address] [address] Referral ID Status Reason Start Date Expiration Date Visits Re quested Visits Authorized [id number] Closed 10/19/2020 04/29/2021 1 8 Encounter Details Date Type Department Care Team (Late st Contact Info) Description 12/14/2020 1:00 PM CDT - 12/14/2020 11:59 PM CDT Hospital Encounter [facility] Medical [facility] - Rheumatology [address] [place] [address] Gloria Smith MD [address] [place] [address] Discharge Disposition: Home or Self [...] Sahu RN - 12/14/2020 1:42 PM CDT [place] Rheumatology Post Infusion instructions You [...] through Sunday 9-5 call the office at [phone] After hours or on the weekend call the exchange at [phone] If you have had lab work done [...] 1 (one) tablet by mouth at bedtime sxpzudvehoj-lzuj-lef ysorb, PF, 0.5-1-0.5 % SOLN Instill 1 [...] - 12/14/2020 1:38 PM CDT JOSE Deng [id number] 12/14/2020 Diagnosis: Rheumatoid arthritis without rheumatoid factor, multiple sites [M06.09]. Pt denies symptoms of infection or antibiotic use, no open wounds, or recent surgery, or plans for surgery in the next couple of weeks. Pt is aware that we use the 0-10 pain scale to assess discomfort. 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 front end java developer pt signs consent for treatment for [...] st Contact Info) Description 06/03/2024 1:00 PM OLDER ADULT SOCIAL WORK SPECIALIST Appointment [facility] - Rheumatology [address] [place] [address] [id number] 06/03/2024 2:00 PM OLDER ADULT SOCIAL WORK SPECIALIST Office Visit [facility] - Rheumatology [address] [place] [address] Gloria Smith MD [address] [place] [phone] documented as of this encounter Visit [...] mL/hr documented in this encounter Care Teams Chemical Production Engineer Relationship Specialty Start Date End Date Tomas Hyman MD [address] [facility] [address] [place] [address] PCP - General Family Medicine 09/05/18 Isidro Heredia MD Rheumatology 02/09/11 documented as of this encounter
--- OUTSIDE RECORDS SUMMARY | 2024-05-03 08:57 | XMS_ITS | Encounter Summary ---
Author Organization [facility] Address [address] [facility] [place] [address] Care Team Providers Care Manager Utilization Management Name Role Phone Isidro Heredia MD Unavailable [phone] Tomas Hyman MD Primary Care Provider [phone] Encounter Details Date Type Department Care Team [...] st Contact Info) Description 06/03/2024 1:00 PM WORK CHECKER Appointment [facility] - Rheumatology [address] [place] [address] 06/03/2024 2:00 PM WORK CHECKER Office Visit [facility] - Rheumatology [address] [place] [address] Gloria Smith MD [address] [place] [address] documented as of this encounter Visit Diagnoses Not on filedocumented in this encounter Care Teams Manager Utilization Management Relationship Specialty Start Date End Date Tomas Hyman MD [address] [facility] [address] [place] [address] PCP - General Family Medicine 09/05/18 Isidro Heredia MD Rheumatology 02/09/11 documented as of this encounter
--- OUTSIDE RECORDS SUMMARY | 2024-05-03 08:57 | XMS_ITS | Encounter Summary ---
Author Organization [facility] Address [address] [facility] [place] [address] Care Team Providers Care Supervisor Grove Name Role Phone Isidro Heredia MD Unavailable [phone] Tomas Hyman MD Primary Care Provider [phone] Encounter Details Date Type Department Care Team [...] COVID-19? No / Unsure 05/04/2020 2:08 PM SALES ADMINISTRATION SPECIALIST documented as of this encounter Plan of Treatment Upcoming Encounters Date Type Department Care Team (Late st Contact Info) Description 06/03/2024 1:00 PM SALES ADMINISTRATION SPECIALIST Appointment [facility] - Rheumatology [address] [place] [address] 06/03/2024 2:00 PM SALES ADMINISTRATION SPECIALIST Office Visit [facility] - Rheumatology [address] [place] [address] Gloria Smith MD [address] [place] [phone] documented as of this encounter Visit Diagnoses Not on filedocumented in this encounter Care Teams Supervisor Grove Relationship Specialty Start Date End Date Tomas Hyman MD [address] [facility] [address] [place] [address] PCP - General Family Medicine 09/05/18 Isidro Heredia MD Rheumatology 02/09/11 documented as of this encounter
--- OUTSIDE RECORDS SUMMARY | 2024-05-03 08:57 | XMS_ITS | Encounter Summary ---
Author Organization [facility] Address [address] [facility] [place] [address] Care Team Providers Care Sprayer Machine Name Role Phone Isidro Heredia MD Unavailable [phone] Tomas Hyman MD Primary Care Provider [phone] Encounter Details Date Type Department Care Team [...] st Contact Info) Description 06/03/2024 1:00 PM CNMT Appointment [facility] - Rheumatology [address] [place] [address] 06/03/2024 2:00 PM CNMT Office Visit [facility] - Rheumatology [address] [place] [address] Gloria Smith MD [address] [place] [phone] documented as of this encounter Visit Diagnoses Not on filedocumented in this encounter Care Teams Sprayer Machine Relationship Specialty Start Date End Date Tomas Hyman MD [address] [facility] [address] [place] [address] PCP - General Family Medicine 09/05/18 Isidro Heredia MD Rheumatology 02/09/11 documented as of this encounter
--- OUTSIDE RECORDS SUMMARY | 2024-05-03 08:57 | XMS_ITS | Encounter Summary ---
Author Organization [facility] Address [address] [facility] [place] [address] Care Team Providers Care Hogshead Weigher Name Role Phone Isidro Heredia MD Unavailable [phone] Tomas Hyman MD Primary Care Provider [phone] Reason for Visit * Treatment (Routine) - Closed Specialty Diagnoses / Procedures Referred By Contact Referred To Contact Infusion Therapy Nurse / Rheumatology Diagnoses Rheumatoid arthritis without rheumatoid factor, multiple sites (HCC) Procedures [place] INFLIXIMAB INJECTION Gloria Smith MD [address] [place] [address] [facility] [address] [address] Referral ID Status Reason Start Date Expiration Date Visits Re quested Visits Authorized [id number] Closed 05/04/2020 04/29/2021 12 12 Encounter Details Date Type Department Care Team (Late st Contact Info) Description 06/01/2020 10:50 AM ACID PLANT HELPER - 06/01/2020 11:59 PM ACID PLANT HELPER Hospital Encounter [facility] Medical [facility] - Rheumatology [address] [place] [address] Gloria Smith MD [address] [place] [address] [address] Discharge Disposition: Home or Self [...] COVID-19? No / Unsure 05/04/2020 2:08 PM ACID PLANT HELPER documented as of this encounter Last Filed Vital Signs Vital Sign Reading Time Taken Comments Blood Pressure 119/72 06/01/2020 11:08 AM ACID PLANT HELPER Pulse 75 06/01/2020 11:08 AM ACID PLANT HELPER Temperature 36.3 ??C (97.3 ??F) 06/01/2020 11:[address] Respiratory Rate 18 06/01/2020 11:08 AM ACID PLANT HELPER Oxygen Saturation - - Inhaled Oxygen Concentration - - Weight 104.3 kg (230 lb) 06/01/2020 11:08 AM ACID PLANT HELPER Height - - Body Mass Index 33 05/10/2020 10:26 AM ACID PLANT HELPER documented in this encounter Discharge Instructions * Discharge Instructions* Jody Sahu RN - 06/01/2020 11:14 AM ACID PLANT HELPER IN Rheumatology Post Infusion instructions You have [...] through Sunday 9-5 call the office at [phone] After hours or on the weekend call the exchange at [phone] If you have had lab work done [...] Hospital as your provider. Jody Sahu, RN PLANT HELPER documented in this encounter Medications at Time of Discharge Medication Sig Dispensed Refills Start Date End Date atorvastatin (LIPITOR) 40 MG tablet Take 1 (one) tablet by mouth at bedtime tqpvzkthghf-rcvh-cvp ysorb, PF, 0.5-1-0.5 % SOLN Instill 1 [...] 06/01/2020 11:22 AM CST JOSE Allred Ish [id number] 06/01/2020 Diagnosis: Rheumatoid arthritis without rheumatoid factor, [...] Next treatment? 4 weeks Jody Sahu RN PLANT HELPER documented in this encounter Plan of Treatment Upcoming Encounters Date Type Department Care Team (Late st Contact Info) Description 06/03/2024 1:00 PM ACID PLANT HELPER Appointment [facility] - Rheumatology [address] [place] [address] 06/03/2024 2:00 PM ACID PLANT HELPER Office Visit [facility] - Rheumatology [address] [place] [address] Gloria Smith MD [address] [place] [phone] documented as of this encounter Visit [...] filter. $ New Bag/Syringe 06/01/2020 11:24 AM ACID PLANT HELPER 600 mg 135 mL/hr documented in this encounter Care Teams Hogshead Weigher Relationship Specialty Start Date End Date Tomas Hyman MD [address] [place] [address] PCP - General Family Medicine 09/05/18 Isidro Heredia MD Rheumatology 02/09/11 documented as of this encounter
--- OUTSIDE RECORDS SUMMARY | 2024-05-03 08:57 | XMS_ITS | Encounter Summary ---
Author Organization [facility] Address [address] [place] [address] Care Team Providers Care Toucher Up Name Role Phone Isidro Heredia MD Unavailable [phone] Tomas Hyman MD Primary Care Provider [phone] Reason for Visit * Treatment (Routine) - Closed Specialty Diagnoses / Procedures Referred By Contact Referred To Contact Infusion Therapy Nurse / Rheumatology Diagnoses Rheumatoid arthritis without rheumatoid factor, multiple sites (HCC) Procedures [place] INFLIXIMAB INJECTION Gloria Smith MD [address] [place] [address] [facility] [address] [address] Referral ID Status Reason Start Date Expiration Date Visits Re quested Visits Authorized [id number] Closed 05/04/2020 04/29/2021 12 12 Encounter Details Date Type Department Care Team (Late st Contact Info) Description 07/27/2020 11:35 AM CDT - 07/27/2020 11:59 PM CDT Hospital Encounter [facility] Medical [facility] - Rheumatology [address] [place] [address] Gloria Smith MD [facility] [place] [address] Discharge Disposition: Home or Self [...] Body Mass Index 33.86 06/29/2020 12:56 PM SOCIAL INSURANCE SPECIALIST documented in this encounter Discharge Instructions * Discharge Instructions* Jody Sahu RN - 07/27/2020 12:48 PM CDT [place] Rheumatology Post Infusion instructions [...] through Sunday 9-5 call the office at [phone] After hours or on the weekend call the exchange at [phone] If you have had lab work done [...] 1 (one) tablet by mouth at bedtime bhtnjuiijju-aknx-lpq ysorb, PF, 0.5-1-0.5 % SOLN Instill 1 [...] - 07/27/2020 12:49 PM CDT JOSE Deng [id number] 07/27/2020 Diagnosis: Rheumatoid arthritis without rheumatoid factor, multiple sites [M06.09]. Pt denies symptoms of infection or antibiotic use, no open wounds, or recent surgery, or plans for surgery in the next couple of weeks. Pt is aware that we use the 0-10 pain scale to assess discomfort. 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 front counter clerk pt signs consent for treatment for [...] st Contact Info) Description 06/03/2024 1:00 PM SOCIAL INSURANCE SPECIALIST Appointment [facility] - Rheumatology [address] [place] [address] 06/03/2024 2:00 PM SOCIAL INSURANCE SPECIALIST Office Visit [facility] - Rheumatology [address] [place] [address] Gloria Smith MD [address] [place] [phone] documented as of this encounter Visit [...] mL/hr documented in this encounter Care Teams Toucher Up Relationship Specialty Start Date End Date Tomas Hyman MD [address] [address] [address] [place] [address] PCP - General Family Medicine 09/05/18 Isidro Heredia MD Rheumatology 02/09/11 documented as of this encounter
--- OUTSIDE RECORDS SUMMARY | 2024-05-03 08:57 | XMS_ITS | Encounter Summary ---
Author Organization [facility] Address [address] [facility] [place] [address] Care Team Providers Care Sanitary Plumber Name Role Phone Isidro Heredia MD Unavailable [phone] Tomas Hyman MD Primary Care Provider [phone] Encounter Details Date Type Department Care Team (Late st Contact Info) Description 06/29/2020 1:00 PM SHIP'S ELECTRONIC WARFARE OFFICER Office Visit [facility] Medical [facility] - Rheumatology [address] [place] [address] Gloria Smith MD [address] [place] [address] Rheumatoid arthritis of multiple sites with [...] COVID-19? No / Unsure 06/29/2020 11:44 AM SHIP'S ELECTRONIC WARFARE OFFICER documented as of this encounter Last Filed Vital Signs Vital Sign Reading Time Taken Comments Blood Pressure 130/74 06/29/2020 12:56 PM SHIP'S ELECTRONIC WARFARE OFFICER Pulse 79 06/29/2020 12:56 PM SHIP'S ELECTRONIC WARFARE OFFICER Temperature 36.6 ??C (97.9 ??F) 06/29/2020 12:[address] Respiratory Rate - - Oxygen Saturation - - Inhaled Oxygen Concentration - - Weight 105.7 kg (233 lb) 06/29/2020 12:56 PM SHIP'S ELECTRONIC WARFARE OFFICER Height 177.8 cm (5' 10 ) 06/29/2020 12:56 PM SHIP'S ELECTRONIC WARFARE OFFICER Body Mass Index 33.43 06/29/2020 12:56 PM SHIP'S ELECTRONIC WARFARE OFFICER documented in this encounter Progress Notes * [...] bone density scan - took alendronate from 7961-9942. 'S ELECTRONIC WARFARE OFFICER documented in this encounter Plan of Treatment Upcoming Encounters Date Type Department Care Team (Late st Contact Info) Description 06/03/2024 1:00 PM SHIP'S ELECTRONIC WARFARE OFFICER Appointment [facility] - Rheumatology [address] [place] [phone] 06/03/2024 2:00 PM SHIP'S ELECTRONIC WARFARE OFFICER Office Visit [facility] - Rheumatology [address] [place] [address] Gloria Smith MD [address] [place] [phone] documented as of this encounter Procedures Procedure Name Priority Date/Time Associated Diagnosis Comments C-REACTIVE PROTEIN Routine 06/29/2020 2: 10 PM SHIP'S ELECTRONIC WARFARE OFFICER Rheumatoid 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) ERYTHROCYTE SEDIMENTATION RATE Routine 06/29/2020 2:10 PM SHIP'S ELECTRONIC WARFARE OFFICER Rheumatoid arthritis of multiple sites with negative rheumatoid factor (HCC) CBC W AUTO DIFFERENTIAL Routine 06/29/2020 2:10 PM SHIP'S ELECTRONIC WARFARE OFFICER Rheumatoid arthritis of multiple sites with negative rheumatoid factor (HCC) COMPREHENSIVE METABOLIC PANEL Routine 06/29/2020 2:10 PM SHIP'S ELECTRONIC WARFARE OFFICER Rheumatoid arthritis of multiple sites with negative rheumatoid factor (HCC) documented in this encounter Results * C-REACTIVE PROTEIN (06/29/2020 2:10 PM SHIP'S ELECTRONIC WARFARE OFFICER) C-Reactive Protein <0.20 <=0.50 mg/dL [facility] INSURANCE BILL Blood BLOOD SPECIMEN / Unknown 06/29/2020 2:10 PM SHIP'S ELECTRONIC WARFARE OFFICER 06/29/2020 Narrative Resulting Agency Comment Lab Testing performed at: [place] [address] ?? [facility] [phone] Gloria Smith MD LAB - CHEMISTRY ORDE RABLES Performing Organization Address City/[facility]/ZIP Co de Phone Number [facility] INSURANCE BILL [address] [place] [address] * ERYTHROCYTE SEDIMENTATION RATE (06/29/2020 2:10 PM SHIP'S ELECTRONIC WARFARE OFFICER) Erythrocyte Sedimentation Rate Westergren 13 0 - 20 MM/HR [facility] INSURANCE BILL Blood BLOOD SPECIMEN / Unknown 06/29/2020 2:10 PM SHIP'S ELECTRONIC WARFARE OFFICER 06/29/2020 Narrative Resulting Agency Comment Lab Testing performed at: [address] ?? [facility] [id number] Gloria Smith MD LAB - HEMATOLOGY ORD ERABLES Performing Organization Address City/[facility] Co de Phone Number [facility] INSURANCE BILL [address] [place] [address] * COMPREHENSIVE METABOLIC PANEL (06/29/2020 2:10 PM SHIP'S ELECTRONIC WARFARE OFFICER) Glucose 103 70 - 105 mg/dL [facility] [...] BLOOD SPECIMEN / Unknown 06/29/2020 2:10 PM SHIP'S ELECTRONIC WARFARE OFFICER 06/29/2020 Narrative Resulting Agency Comment Lab Testing performed at: [facility] [address] [facility] ?? [facility] [phone] Gloria Smith MD LAB - CHEMISTRY MARII ARAUJO [facility] INSURANCE BILL [address] [place] [address] * (ABNORMAL) CBC WITH DIFFERENTIAL (06/29/2020 2:10 PM SHIP'S ELECTRONIC WARFARE OFFICER) WBC 8.6 4.4 - 10.7 x10E9/L [facility] [...] [facility] INSURANCE BILL Comment:MPV [place] BLOOD ([facility]) 1 1.4 fl 9.4-12.9 Granulocytes % 43.6(L) [...] BLOOD SPECIMEN / Unknown 06/29/2020 2:10 PM SHIP'S ELECTRONIC WARFARE OFFICER 06/29/2020 Narrative Resulting Agency Comment Lab Testing performed at: [address] ?? [facility] [id number] Gloria Smith MD LAB - HEMATOLOGY ORD ERABLES [facility] INSURANCE BILL [address] [place] [address] documented in this encounter Visit Diagnoses Diagnosis Rheumatoid arthritis of multiple sites with negative rheumatoid factor (HCC)- Primary documented in this encounter Care Teams Sanitary Plumber Relationship Specialty Start Date End Date Tomas Hyman MD [address] [place] [address] PCP - General Family Medicine 09/05/18 Isidro Heredia MD Rheumatology 02/09/11 documented as of this encounter
--- OUTSIDE RECORDS SUMMARY | 2024-05-03 08:57 | XMS_ITS | Encounter Summary ---
Author Organization [facility] Address [address] [facility] [place] [address] Care Team Providers Care Portable Trackman Name Role Phone Isidro Heredia MD Unavailable [phone] Tomas Hyman MD Primary Care Provider [phone] Encounter Details Date Type Department Care Team (Late Contact Info) Description 05/10/2020 10:30 AM REGRINDER OPERATOR Ancillary Procedure [facility] Orthopedics [address] [place] [phone] iNni Han MD [address] [place] [phone] Hand pain, right Social History Tobacco [...] COVID-19? No / Unsure 05/04/2020 2:08 PM REGRINDER OPERATOR documented as of this encounter Plan of Treatment Upcoming Encounters Date Type Department Care Team (Late Contact Info) Description 06/03/2024 1:00 PM REGRINDER OPERATOR Appointment [facility] Medical [facility] - Rheumatology [address] [place] [address] 06/03/2024 2:00 PM REGRINDER OPERATOR Office Visit [facility] - Rheumatology [address] [place] [address] Gloria Smith MD [address] [place] [address] [place] [phone] documented as of this encounter Procedures Procedure Name Priority Date/Time Associated Diagnosis Comments XR HAND RIGHT 3VW OR MORE Routine 05/10/2020 10:37 AM REGRINDER OPERATOR Hand pain, right documented in this encounter Results * XR HAND RIGHT 3VW OR MORE (05/10/2020 10:37 AM REGRINDER OPERATOR) Anatomical Region Laterality Modality Wrist / Hand Computed Radiogr aphy Narrative 05/10/2020 10:38 AM REGRINDER OPERATOR Mora Delgado M, RT(R) ? 05/10/2020 11:39 AM See chart for xray results Nini Han MD DIAGNOSTIC IMAGING ORDERABLES documented in this encounter Visit Diagnoses Diagnosis Hand pain, right Pain in limb documented in this encounter Care Teams Portable Trackman Relationship Specialty Start Date End Date Tomas Hyman MD [address] [facility] [address] [place] [address] PCP - General Family Medicine 09/05/18 Isidro Heredia MD Rheumatology 02/09/11 documented as of this encounter
--- OUTSIDE RECORDS SUMMARY | 2024-05-03 08:58 | XMS_ITS | Encounter Summary ---
Author Organization [facility] Address [address] [place] [address] Care Team Providers Care Hardware Supplies Sales Representative Name Role Phone Isidro Heredia MD Unavailable [phone] Tomas Hyman MD Primary Care Provider [phone] Encounter Details Date Type Department Care Team (Late st Contact Info) Description 02/06/2020 1:41 PM CDT - 02/06/2020 11:59 PM CDT Hospital Encounter [facility] Urgent [facility] - Medical Imaging [address] [facility] [place] [address] Gloria Smith MD [address] [place] [phone] Discharge Disposition: Home or Self Care Social [...] 1 (one) tablet by mouth at bedtime iyhiwfqherb-ftgt-vg lysorb, PF, 0.5-1-0.5 % SOLN Instill 1 [...] st Contact Info) Description 06/03/2024 1:00 PM MOUNTER AUTOMATIC Appointment [facility] - Rheumatology [address] [place] [address] 06/03/2024 2:00 PM MOUNTER AUTOMATIC Office Visit [facility] - Rheumatology [address] [place] [address] Gloria Smith MD [address] [place] [phone] documented as of this encounter Procedures Procedure Name Priority Date/Time Associated Diagnosis Comments XR SI JOINTS 3VW OR MORE Routine 02/06/2020 1:46 PM CDT Rheumatoid arthritis 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
--- OUTSIDE RECORDS SUMMARY | 2024-05-03 08:58 | XMS_ITS | Encounter Summary ---
Author Organization [facility] Address [address] [place] [address] Care Team Providers Care Bumper Straightener Name Role Phone Isidro Heredia MD Unavailable [phone] Tomas Hyman MD Primary Care Provider [phone] Reason for Visit * Treatment (Routine) - Closed Specialty Diagnoses / Procedures Referred By Lawrence shah Referred To Contact Infusion Therapy Nurse Diagnoses Rheumatoid arthritis without rheumatoid factor, multiple sites (HCC) Procedures OK INFLIXIMAB INJECTION Gloria Smith MD [address] [place] [address] [address] Referral ID Status Reason Start Date Expiration Date Visits Re quested Visits Authorized [id number] Closed 05/09/2019 04/29/2020 1 12 Encounter Details Date Type Department Care Team (Late st Contact Info) Description 11/10/2019 9:38 AM CDT - 11/10/2019 11:59 PM CDT Hospital Encounter [facility] Medical [facility] - Rheumatology [address] [place] [address] Gloria Smith MD [facility] [place] [address] Discharge Disposition: Home or Self [...] Sahu RN - 11/10/2019 10:10 AM CDT [place] Rheumatology Post Infusion instructions You have received [...] Sunday through 01-02 call the office at [phone] After hours or on the weekend call the exchange at [phone] If you have had lab work done [...] 1 (one) tablet by mouth at bedtime lbvbtxbswuv-okot-sl lysorb, PF, 0.5-1-0.5 % SOLN Instill 1 [...] 11/10/2019 10:00 AM CDT JOSE Chalino Deng [id number] 11/10/2019 Diagnosis: Rheumatoid arthritis without rheumatoid factor, multiple sites [M06.09]. Pt denies symptoms of infection or antibiotic use, no open wounds, or recent surgery, or plans for surgery in the next couple of weeks. Pt is aware that we use the 0-10 pain scale to assess discomfort. 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 hotel front office manager pt signs consent for treatment for [...] st Contact Info) Description 06/03/2024 1:00 PM BOAT MASTER Appointment [facility] - Rheumatology [address] [place] [address] 06/03/2024 2:00 PM BOAT MASTER Office Visit [facility] - Rheumatology [address] [place] [address] Gloria Smith MD [address] [place] [phone] documented as of this encounter Visit [...] mL/hr documented in this encounter Care Teams Bumper Straightener Relationship Specialty Start Date End Date Tomas Hyman MD [address] [facility] [address] [place] [phone] PCP - General Family Medicine 09/05/18 Isidro Heredia MD Rheumatology 02/09/11 documented as of this encounter
--- OUTSIDE RECORDS SUMMARY | 2024-05-03 08:58 | XMS_ITS | Encounter Summary ---
Author Organization [facility] Address [address] [facility] [place] [address] Care Team Providers Care Vp Informatics Name Role Phone Isidro Heredia MD Unavailable [phone] Tomas Hyman MD Primary Care Provider [phone] Reason for Visit * Treatment (Routine) - Closed Specialty Diagnoses / Procedures Referred By Lawrence shah Referred To Contact Infusion Therapy Nurse Diagnoses Rheumatoid arthritis without rheumatoid factor, multiple sites (HCC) Procedures DE INFLIXIMAB INJECTION Gloria Smith MD [address] [place] [address] [address] Referral ID Status Reason Start Date Expiration Date Visits Re quested Visits Authorized [id number] Closed 05/09/2019 04/29/2020 1 12 Encounter Details Date Type Department Care Team (Late st Contact Info) Description 04/06/2020 12:46 PM HISTORIC SITE ADMINISTRATOR - 04/06/2020 11:59 PM HISTORIC SITE ADMINISTRATOR Hospital Encounter [facility] Medical [facility] - Rheumatology [address] [place] [address] Gloria Smith MD [address] [place] [phone] Discharge Disposition: Home or Self Care [...] COVID-19? No / Unsure 04/06/2020 1:43 PM HISTORIC SITE ADMINISTRATOR documented as of this encounter Last Filed Vital Signs Vital Sign Reading Time Taken Comments Blood Pressure 138/75 04/06/2020 1:06 PM HISTORIC SITE ADMINISTRATOR Pulse 74 04/06/2020 1:06 PM HISTORIC SITE ADMINISTRATOR Temperature 36.2 ??C (97.2 ??F) 04/06/2020 1:06 PM CS T Respiratory Rate 18 04/06/2020 1:06 PM HISTORIC SITE ADMINISTRATOR Oxygen Saturation - - Inhaled Oxygen Concentration - - Weight 103 kg (227 lb) 04/06/2020 1:06 PM HISTORIC SITE ADMINISTRATOR Height - - Body Mass Index 32.57 11/10/2019 10:34 AM CDT documented in this encounter Discharge Instructions * Discharge Instructions* Jody Sahu RN - 04/06/2020 1:12 PM HISTORIC SITE ADMINISTRATOR [place] Rheumatology Post Infusion instructions You have [...] through Sunday 9-5 call the office at [phone] After hours or on the weekend call the exchange at [phone] If you have had lab work done [...] [facility] as your provider. Jody Sahu, RN ORIC SITE ADMINISTRATOR documented in this encounter Medications at Time of Discharge Medication Sig Dispensed Refills Start Date End Date atorvastatin (LIPITOR) 40 MG tablet Take 1 (one) tablet by mouth at bedtime fbvkppbmvud-muue-stf ysorb, PF, 0.5-1-0.5 % SOLN Instill 1 [...] - 04/06/2020 1:37 PM CST JOSE Deng [id number] 04/06/2020 Diagnosis: Rheumatoid arthritis without rheumatoid factor, multiple sites [M06.09]. Pt denies symptoms of infection or antibiotic use, no open wounds, or recent surgery, or plans for surgery in the next couple of weeks. Pt is aware that we use the 0-10 pain scale to assess discomfort. 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 front office administrator pt signs consent for treatment for [...] Next treatment? 4 weeks Jdoy Sahu RN ORIC SITE ADMINISTRATOR documented in this encounter Plan of Treatment Upcoming Encounters Date Type Department Care Team (Late st Contact Info) Description 06/03/2024 1:00 PM HISTORIC SITE ADMINISTRATOR Appointment [facility] - Rheumatology [address] [place] [address] 06/03/2024 2:00 PM HISTORIC SITE ADMINISTRATOR Office Visit [facility] - Rheumatology [address] [place] [address] Gloria Smith MD [address] [place] [phone] documented as of this encounter Visit [...] filter. $ New Bag/Syringe 04/06/2020 1:23 PM HISTORIC SITE ADMINISTRATOR 600 mg 135 mL/hr documented in this encounter Care Teams Vp Informatics Relationship Specialty Start Date End Date Tomas Hyman MD [address] [place] [address] PCP - General Family Medicine 09/05/18 Isidro Heredia MD Rheumatology 02/09/11 documented as of this encounter
--- OUTSIDE RECORDS SUMMARY | 2024-05-03 08:58 | XMS_ITS | Encounter Summary ---
Author Organization [facility] Address [address] [place] [address] Care Team Providers Care Reheater Name Role Phone Isidro Heredia MD Unavailable [phone] Tomas Hyman MD Primary Care Provider [phone] Reason for Visit * Reason Comments Arthritis follow up Encounter Details Date Type Department Care Team (Late st Contact Info) Description 02/06/2020 11:40 AM CDT Office Visit [facility] - Rheumatology [address] [place] [address] Gloria Smith MD [address] [place] [phone] Rheumatoid arthritis of multiple sites with [...] bone density scan - took alendronate from [id number]. documented in this encounter Plan of Treatment Upcoming Encounters Date Type Department Care Team (Late st Contact Info) Description 06/03/2024 1:00 PM CHEMISTRY ACCOUNT MANAGER Appointment [facility] - Rheumatology [address] [place] [address] 06/03/2024 2:00 PM CHEMISTRY ACCOUNT MANAGER Office Visit [facility] - Rheumatology [address] [place] [phone] Gloria Smith MD [address] [place] [phone] documented as of this encounter Procedures [...] Region Laterality Modality Pelvis, Lower Extremity Radiogra [facility] Imaging 02/06/2020 2:55 PM CDT [...] Drug Administration. HLA Lab CLIA ID Number [id number] ? . This test was performed using PCR (Polymerase Chain Reaction)/SSOP (Sequence Specific Oligonucleotide Probes) technique. ??SBT (Sequence Based Typing) and/or SSP (Sequence Specific Primers) may be used as supplemental methods when necessary. ??Please contact [facility] Customer Service at if you have any questions. ? . Director of [facility] Laboratory Dr Frankie Salinas, PhD Blood BLOOD SPECIMEN / Unknown 02/06/2020 1:32 PM CDT 02/06/2020 Narrative Resulting Agency Comment Lab Testing performed at: [facility] [place] [id number] [facility] ??[facility] [id number] Gloria Smith MD LAB - CHEMISTRY MARII ARAUJO Performing Organization Address City/[facility]/ZIP Co de Phone Number [facility] INSURANCE BILL [address] [place] [address] * C-REACTIVE PROTEIN (02/06/2020 1:32 PM CDT) C-Reactive Protein 0.21 <=0.50 mg/dL [facility] INSURANCE BILL Blood BLOOD SPECIMEN / Unknown 02/06/2020 1:32 PM CDT 02/06/2020 Narrative Resulting Agency Comment Lab Testing performed at: [facility] [place] [address] [address] ?? [facility] [id number] Gloria Smith MD LAB - CHEMISTRY MARII ARAUJO [facility] INSURANCE BILL [address] [place] [address] * ERYTHROCYTE SEDIMENTATION RATE (02/06/2020 1:32 PM CDT) Erythrocyte Sedimentation Rate Westergren 12 0 - 20 MM/HR [facility] INSURANCE BILL Blood BLOOD SPECIMEN / Unknown 02/06/2020 1:32 PM CDT 02/06/2020 Narrative Resulting Agency Comment Lab Testing performed at: [place] [address] [address] ?? [place] [id number] Gloria Smith MD LAB - HEMATOLOGY ORD ERABLES [facility] INSURANCE BILL [address] [place] [address] * (ABNORMAL) COMPREHENSIVE METABOLIC PANEL (02/06/2020 1:32 [...] Comment Lab Testing performed at: [facility] [address] [address] ?? [facility] [id number] Gloria Smith MD LAB - CHEMISTRY MARII ARAUJO [facility] INSURANCE BILL [address] [place] [address] * (ABNORMAL) CBC WITH DIFFERENTIAL (02/06/2020 1:32 [...] Resulting Agency Comment Lab Testing performed at: [address] ?? [facility] [id number] Gloria Smith MD LAB - HEMATOLOGY ORD ERABLES [facility] INSURANCE BILL [address] [place] [address] documented in this encounter Visit Diagnoses Diagnosis Rheumatoid arthritis of multiple sites with negative rheumatoid factor (HCC)- Primary Rheumatoid arthritis of multiple sites with negative rheumatoid factor (HCC) documented in this encounter Care Teams Reheater Relationship Specialty Start Date End Date Tomas Hyman MD [address] [facility] [address] [place] [address] PCP - General Family Medicine 09/05/18 Isidro Heredia MD Rheumatology 02/09/11 documented as of this encounter
--- OUTSIDE RECORDS SUMMARY | 2024-05-03 08:58 | XMS_ITS | Encounter Summary ---
Author Organization [facility] Address [address] [facility] [place] [address] Care Team Providers Care Case Loader Operator Name Role Phone Isidro Heredia MD Unavailable [phone] Tomas Hyman MD Primary Care Provider [phone] Encounter Details Date Type Department Care Team [...] st Contact Info) Description 06/03/2024 1:00 PM MRI ASSISTANT Appointment [facility] - Rheumatology [address] [place] [address] 06/03/2024 2:00 PM MRI ASSISTANT Office Visit [facility] - Rheumatology [address] [place] [address] Gloria Smith MD [address] [place] [phone] documented as of this encounter Visit Diagnoses Not on filedocumented in this encounter Care Teams Case Loader Operator Relationship Specialty Start Date End Date Tomas Hyman MD [address] [facility] [address] [place] [address] PCP - General Family Medicine 09/05/18 Isidro Heredia MD Rheumatology 02/09/11 documented as of this encounter
--- OUTSIDE RECORDS SUMMARY | 2024-05-03 08:58 | XMS_ITS | Encounter Summary ---
Author Organization [facility] Address [address] [facility] [place] [address] Care Team Providers Care Automobile Accessories Installer Name Role Phone Isidro Heredia MD Unavailable [phone] Tomas Hyman MD Primary Care Provider [phone] Encounter Details Date Type Department Care Team [...] st Contact Info) Description 06/03/2024 1:00 PM HARDWOOD FLOOR INSTALLATION HELPER Appointment [facility] - Rheumatology [address] [place] [address] 06/03/2024 2:00 PM HARDWOOD FLOOR INSTALLATION HELPER Office Visit [facility] - Rheumatology [address] [place] [address] Gloria Smith MD [address] [place] [phone] documented as of this encounter Visit Diagnoses Not on filedocumented in this encounter Care Teams Automobile Accessories Installer Relationship Specialty Start Date End Date Tomas Hyman MD [address] [facility] [address] [place] [address] PCP - General Family Medicine 09/05/18 Isidro Heredia MD Rheumatology 02/09/11 documented as of this encounter
--- OUTSIDE RECORDS SUMMARY | 2024-05-03 08:58 | XMS_ITS | Encounter Summary ---
Author Organization [facility] Address [address] [facility] [place] [address] Care Team Providers Care Mixing Tank Operator Name Role Phone Isidro Heredia MD Unavailable [phone] Tomas Hyman MD Primary Care Provider [phone] Reason for Visit * Reason Onset Date Comments Question 04/08/2020 Encounter Details Date Type Department Care Team (Late st Contact Info) Description 04/08/2020 Telephone [facility] Orthopedics [address] [place] [phone] Nini Han MD [address] [place] [phone] Question Social History Tobacco Use Types [...] COVID-19? No / Unsure 04/06/2020 1:43 PM GEOGRAPHY INSTRUCTOR documented as of this encounter Miscellaneous Notes * Telephone Encounter - Eryn Matos - 04/08/2020 12:30 PM CST LEFT A MESSAGE ASKING CHALINO CASEY TO RETURN MY CALL TO SCHEDULE AN APPOINTMENT RAPHY INSTRUCTOR * Telephone Encounter - Eryn Matos Shahnaz - 04/08/2020 12:30 PM CST ----- Message from Gloria Smith MD sent at 04/06/2020 3:27 PM GEOGRAPHY INSTRUCTOR ----- Regarding: referral to dr Ortega Referring him to Dr. Ortega. Dx: right palm ganglion cyst. RAPHY INSTRUCTOR documented in this encounter Plan of Treatment Upcoming Encounters Date Type Department Care Team (Late st Contact Info) Description 06/03/2024 1:00 PM GEOGRAPHY INSTRUCTOR Appointment [facility] - Rheumatology [address] [place] [address] 06/03/2024 2:00 PM GEOGRAPHY INSTRUCTOR Office Visit [facility] - Rheumatology [address] [place] [address] Gloria Smith MD [address] [place] [phone] documented as of this encounter Visit Diagnoses Not on filedocumented in this encounter Care Teams Mixing Tank Operator Relationship Specialty Start Date End Date Tomas Hyman MD [address] [facility] [address] [place] [address] PCP - General Family Medicine 09/05/18 Isidro Heredia MD Rheumatology 02/09/11 documented as of this encounter
--- OUTSIDE RECORDS SUMMARY | 2024-05-03 08:58 | XMS_ITS | Encounter Summary ---
Author Organization [facility] Address [address] [facility] [place] [address] Care Team Providers Care Instrument Setter Name Role Phone Isidro Heredia MD Unavailable [phone] Tomas Hyman MD Primary Care Provider [phone] Reason for Visit * Reason Onset Date Comments Question 04/06/2020 Encounter Details Date Type Department Care Team (Late st Contact Info) Description 04/06/2020 Telephone [facility] Orthopedics [address] [place] [address], [address] [address] Nini Han MD [address] [place] [address] Question Social History Tobacco Use [...] COVID-19? No / Unsure 04/06/2020 1:43 PM DIRECTOR IT PROJECT documented as of this encounter Miscellaneous Notes * Telephone Encounter - Eryn Matos - 04/06/2020 3:48 PM CST LEFT 2 MESSAGES ASKING CHALINO CASEY TO CALL ME BACK TO SCHEDULE AN APPOINTMENT CTOR IT PROJECT * Telephone Encounter - Eryn Matos Shahnaz - 04/06/2020 3:47 PM CST ----- Message from Glorai Smith MD sent at 04/06/2020 3:27 PM DIRECTOR IT PROJECT ----- Regarding: referral to dr Ortega Referring him to Dr. Ortega. Dx: right palm ganglion cyst. CTOR IT PROJECT documented in this encounter Plan of Treatment Upcoming Encounters Date Type Department Care Team (Late st Contact Info) Description 06/03/2024 1:00 PM DIRECTOR IT PROJECT Appointment [facility] - Rheumatology [address] [place] [address] 06/03/2024 2:00 PM DIRECTOR IT PROJECT Office Visit [facility] - Rheumatology [address] [place] [address] Gloria Smith MD [address] [place] [phone] documented as of this encounter Visit Diagnoses Not on filedocumented in this encounter Care Teams Instrument Setter Relationship Specialty Start Date End Date Tomas Hyman MD [address] [facility] [address] [place] [address] PCP - General Family Medicine 09/05/18 Isidro Heredia MD Rheumatology 02/09/11 documented as of this encounter
--- OUTSIDE RECORDS SUMMARY | 2024-05-03 08:58 | XMS_ITS | Encounter Summary ---
Author Organization [facility] Address [address] [facility] [place] [address] Care Team Providers Care Home Worker Name Role Phone Isidro Heredia MD Unavailable [phone] Tomas Hyman MD Primary Care Provider [phone] Reason for Visit * Reason Onset Date Comments Update 12/05/2019 Encounter Details Date Type Department Care Team (Late st Contact Info) Description 12/05/2019 Telephone [facility] Medical [facility] - Rheumatology [address] [place] [address] Gloria Smith MD [address] [place] [phone] Update Social History Tobacco Use Types [...] Contact Info) Description 06/03/2024 1:00 PM DIESEL POWERPLANT MECHANIC Appointment [facility] - Rheumatology [address] [place] [phone] 06/03/2024 2:00 PM DIESEL POWERPLANT MECHANIC Office Visit [facility] - Rheumatology [address] [place] [address] Gloria Smith MD [address] [place] [phone] documented as of this encounter Visit Diagnoses Not on filedocumented in this encounter Care Teams Home Worker Relationship Specialty Start Date End Date Tomas Hyman MD [address] [facility] [address] [place] [address] PCP - General Family Medicine 09/05/18 Isidro Heredia MD Rheumatology 02/09/11 documented as of this encounter
--- OUTSIDE RECORDS SUMMARY | 2024-05-03 08:58 | XMS_ITS | Encounter Summary ---
Author Organization [facility] Address [address] [facility] [place] [address] Care Team Providers Care Pier Runner Name Role Phone Isidro Heredia MD Unavailable [phone] Tomas Hyman MD Primary Care Provider [phone] Encounter Details Date Type Department Care Team [...] COVID-19? No / Unsure 04/06/2020 1:43 PM OFFICE SYSTEM ANALYST documented as of this encounter Plan of Treatment Upcoming Encounters Date Type Department Care Team (Late st Contact Info) Description 06/03/2024 1:00 PM OFFICE SYSTEM ANALYST Appointment [facility] - Rheumatology [address] [place] [address] 06/03/2024 2:00 PM OFFICE SYSTEM ANALYST Office Visit [facility] - Rheumatology [address] [place] [address] Gloria Smith MD [address] [place] [phone] documented as of this encounter Visit Diagnoses Not on filedocumented in this encounter Care Teams Pier Runner Relationship Specialty Start Date End Date Tomas Hyman MD [address] [facility] [address] [place] [address] PCP - General Family Medicine 09/05/18 Isidro Heredia MD Rheumatology 02/09/11 documented as of this encounter
--- OUTSIDE RECORDS SUMMARY | 2024-05-03 08:58 | XMS_ITS | Encounter Summary ---
Author Organization [facility] Address [address] [facility] [place] [address] Care Team Providers Care Property Claims Adjuster Name Role Phone Isidro Heredia MD Unavailable [phone] Tomas Hyman MD Primary Care Provider [phone] Encounter Details Date Type Department Care Team (Latest Contact Info) Description 12/19/2019 10:56 AM CDT - 12/19/2019 10:57 AM CDT Hospital Encounter [facility] [address] [place] [address] [place] [address] [place] [address] Discharge Disposition: Home or Self [...] 1 (one) tablet by mouth at bedtime ymxmbitsoax-nstm-oy lysorb, PF, 0.5-1-0.5 % SOLN Instill 1 [...] st Contact Info) Description 06/03/2024 1:00 PM COAGULATION OPERATOR Appointment [facility] - Rheumatology [address] [place] [address] 06/03/2024 2:00 PM COAGULATION OPERATOR Office Visit [facility] - Rheumatology [address] [place] [address] Gloria Smith MD [address] [place] [phone] documented as of this encounter Visit Diagnoses Not on filedocumented in this encounter Care Teams Property Claims Adjuster Relationship Specialty Start Date End Date Tomas Hyman MD [address] [address] [address] [place] [address] PCP - General Family Medicine 09/05/18 Isidro Heredia MD Rheumatology 02/09/11 documented as of this encounter
--- OUTSIDE RECORDS SUMMARY | 2024-05-03 08:58 | XMS_ITS | Encounter Summary ---
Author Organization [facility] Address [address] [facility] [place] [address] Care Team Providers Care Electric Tape Slitter Name Role Phone Isidro Heredia MD Unavailable [phone] Tomas Hyman MD Primary Care Provider [phone] Reason for Visit * Treatment (Routine) - Closed Specialty Diagnoses / Procedures Referred By Contact Referred To Contact Infusion Therapy Nurse / Rheumatology Diagnoses Rheumatoid arthritis without rheumatoid factor, multiple sites (HCC) Procedures [place] INFLIXIMAB INJECTION Gloria Smith MD [address] [place] [address] [facility] [address] [address] Referral ID Status Reason Start Date Expiration Date Visits Re quested Visits Authorized [id number] Closed 05/04/2020 04/29/2021 12 12 Encounter Details Date Type Department Care Team (Late st Contact Info) Description 05/04/2020 11:42 AM PUNCH CARD OPERATOR - 05/04/2020 11:59 PM PUNCH CARD OPERATOR Hospital Encounter [facility] Medical [facility] - Rheumatology [address] [place] [address] Gloria Smith MD [address] [place], [place] [address] [address] Discharge Disposition: Home or Self [...] COVID-19? No / Unsure 05/04/2020 2:08 PM PUNCH CARD OPERATOR documented as of this encounter Last Filed Vital Signs Vital Sign Reading Time Taken Comments Blood Pressure 126/84 05/04/2020 12:14 PM PUNCH CARD OPERATOR Pulse 78 05/04/2020 12:14 PM PUNCH CARD OPERATOR Temperature 36.2 ??C (97.2 ??F) 05/04/2020 12:[address] Respiratory Rate 18 05/04/2020 12:14 PM PUNCH CARD OPERATOR Oxygen Saturation - - Inhaled Oxygen Concentration - - Weight 103.4 kg (228 lb) 05/04/2020 12:14 PM PUNCH CARD OPERATOR Height - - Body Mass Index 32.71 11/10/2019 10:34 AM CDT documented in this encounter Discharge Instructions * Discharge Instructions* Jody Sahu RN - 05/04/2020 12:41 PM PUNCH CARD OPERATOR [place] Rheumatology Post Infusion instructions You have [...] through Sunday 9-5 call the office at [phone] After hours or on the weekend call the exchange at [phone] If you have had lab work done [...] Medical Center as your provider. Jody Sahu, TOVA H CARD OPERATOR documented in this encounter Medications at Time of Discharge Medication Sig Dispensed Refills Start Date End Date atorvastatin (LIPITOR) 40 MG tablet Take 1 (one) tablet by mouth at bedtime ktzxrjceehk-ptze-hja ysorb, PF, 0.5-1-0.5 % SOLN Instill 1 [...] 05/04/2020 12:42 PM CST JOSE [place]red Ish [id number] 05/04/2020 Diagnosis: Rheumatoid arthritis without rheumatoid factor, multiple sites [M06.09]. Pt denies symptoms of infection or antibiotic use, no open wounds, or recent surgery, or plans for surgery in the next couple of weeks. Pt is aware that we use the 0-10 pain scale to assess discomfort. 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 front desk officer pt signs consent for treatment for this [...] Next treatment? 4 weeks Jody Sahu RN H CARD OPERATOR documented in this encounter Plan of Treatment Upcoming Encounters Date Type Department Care Team (Late st Contact Info) Description 06/03/2024 1:00 PM PUNCH CARD OPERATOR Appointment [facility] - Rheumatology [address] [place] [address] 06/03/2024 2:00 PM PUNCH CARD OPERATOR Office Visit [facility] - Rheumatology [address] [place] [address] Gloria Smith MD [address] [place] [phone] documented as of this encounter Visit [...] filter. $ New Bag/Syringe 05/04/2020 12:28 PM PUNCH CARD OPERATOR 600 mg 135 mL/hr documented in this encounter Care Teams Electric Tape Slitter Relationship Specialty Start Date End Date Tomas Hyman MD [address] [place] [address] PCP - General Family Medicine 09/05/18 Isidro Heredia MD Rheumatology 02/09/11 documented as of this encounter
--- OUTSIDE RECORDS SUMMARY | 2024-05-03 08:58 | XMS_ITS | Encounter Summary ---
Author Organization [facility] Address [address] [place] [address] Care Team Providers Care User Experience Designer Name Role Phone Isidro Heredia MD Unavailable [phone] Tomas Hyman MD Primary Care Provider [phone] Reason for Visit * Reason Onset Date Comments MEDICATION REFILL 01/21/2020 Encounter Details Date Type Department Care Team (Late st Contact Info) Description 01/21/2020 Refill [facility] - Rheumatology [address] [place] [address] Gloria Smith MD [address] [place] [phone] MEDICATION REFILL Social History Tobacco Use [...] st Contact Info) Description 06/03/2024 1:00 PM SHIP SUPERINTENDENT Appointment [facility] - Rheumatology [address] [place] [address] [phone] 06/03/2024 2:00 PM SHIP SUPERINTENDENT Office Visit [facility] - Rheumatology [address] [place] [address] [phone] Gloria Smith MD [address] [place] [phone] documented as of this encounter Visit Diagnoses Not on filedocumented in this encounter Care Teams User Experience Designer Relationship Specialty Start Date End Date Tomas Hyman MD [address] [facility] [address] [place] [address] PCP - General Family Medicine 09/05/18 Isidro Heredia MD Rheumatology 02/09/11 documented as of this encounter
--- OUTSIDE RECORDS SUMMARY | 2024-05-03 08:58 | XMS_ITS | Encounter Summary ---
Author Organization [facility] Address [address] [facility] [place] [address] Care Team Providers Care Trigonometry Tutor Name Role Phone Isidro Heredia MD Unavailable [phone] Tomas Hyman MD Primary Care Provider [phone] Encounter Details Date Type Department Care Team [...] COVID-19? No / Unsure 04/09/2020 1:56 PM MARKETING RECRUITER documented as of this encounter Plan of Treatment Upcoming Encounters Date Type Department Care Team (Late st Contact Info) Description 06/03/2024 1:00 PM MARKETING RECRUITER Appointment [facility] - Rheumatology [address] [place] [address] 06/03/2024 2:00 PM MARKETING RECRUITER Office Visit [facility] - Rheumatology [address] [place] [address] Gloria Smith MD [address] [place] [phone] documented as of this encounter Visit Diagnoses Not on filedocumented in this encounter Care Teams Trigonometry Tutor Relationship Specialty Start Date End Date Tomas Hyman MD [address] [facility] [address] [place] [address] PCP - General Family Medicine 09/05/18 Isidro Heredia MD Rheumatology 02/09/11 documented as of this encounter
--- OUTSIDE RECORDS SUMMARY | 2024-05-03 08:58 | XMS_ITS | Encounter Summary ---
Author Organization [facility] Address [address] [facility] [address] Care Team Providers Care Government Relations Director Name Role Phone Isidro Heredia MD Unavailable [phone] Tomas Hyman MD Primary Care Provider [phone] Reason for Visit * Reason Onset Date Comments MEDICATION REFILL 04/05/2020 MEDICATION REFILL 04/12/2020 Encounter Details Date Type Department Care Team (Late Contact Info) Description 04/05/2020 Refill [facility] - Rheumatology [address] [place] [address] Mycsoheilat, Generic Provider MEDICATION REFILL; MEDICATION [...] COVID-19? No / Unsure 04/09/2020 1:56 PM CRACKLING PRESS OPERATOR documented as of this encounter Plan of Treatment Upcoming Encounters Date Type Department Care Team (Late Contact Info) Description 06/03/2024 1:00 PM CRACKLING PRESS OPERATOR Appointment [facility] Rheumatology [address] [place] [address] 06/03/2024 2:00 PM CRACKLING PRESS OPERATOR Office Visit [facility] - Rheumatology [address] [place] [address] Gloria Smith MD [facility] [place] [phone] documented as of this encounter Visit Diagnoses Not on filedocumented in this encounter Care Teams Government Relations Director Relationship Specialty Start Date End Date Tomas Hyman MD [address] [facility] [address] [place] [address] PCP - General Family Medicine 09/05/18 Isidro Heredia MD Rheumatology 02/09/11 documented as of this encounter
--- OUTSIDE RECORDS SUMMARY | 2024-05-03 08:58 | XMS_ITS | Encounter Summary ---
Author Organization [facility] Address [address] [facility] [place] [address] Care Team Providers Care Bladder Changer Name Role Phone Isidro Heredia MD Unavailable [phone] Tomas Hyman MD Primary Care Provider [phone] Encounter Details Date Type Department Care Team (Late Contact Info) Description 12/01/2019 Orders Only [facility] - Rheumatology [address] [place] [address] Gloria Smith MD [address] [place] [phone] Social History Tobacco Use Types Packs/Day [...] (Late Contact Info) Description 06/03/2024 1:00 PM ORACLE TECHNICAL ARCHITECT Appointment [facility] - Rheumatology [address] [place] [address] 06/03/2024 2:00 PM ORACLE TECHNICAL ARCHITECT Office Visit [facility] - Rheumatology [address] [place] [address] Gloria Smith MD [address] [place] [phone] documented as of this encounter Visit Diagnoses Not on filedocumented in this encounter Care Teams Bladder Changer Relationship Specialty Start Date End Date Tomas Hyman MD [address] [facility] [address] [place] [address] PCP - General Family Medicine 09/05/18 Isidro Heredia MD Rheumatology 02/09/11 documented as of this encounter
--- OUTSIDE RECORDS SUMMARY | 2024-05-03 08:58 | XMS_ITS | Encounter Summary ---
Author Organization [facility] Address [address] [place] [address] Care Team Providers Care Glass Installer Technician Name Role Phone Isidro Heredia MD Unavailable Tomas Hyman MD Primary Care Provider [phone] Reason for Visit * Reason Comments Arthritis follow up Encounter Details Date Type Department Care Team (Late st Contact Info) Description 04/06/2020 2:40 PM DRUG ABUSE COUNSELOR Office Visit [facility] - Rheumatology [address] [place] [address] Gloria Smith MD [address] [place] [phone] Rheumatoid arthritis of multiple sites with [...] COVID-19? No / Unsure 04/06/2020 1:43 PM DRUG ABUSE COUNSELOR documented as of this encounter Last Filed Vital Signs Vital Sign Reading Time Taken Comments Blood Pressure 138/75 04/06/2020 2:29 PM DRUG ABUSE COUNSELOR Pulse 74 04/06/2020 2:29 PM DRUG ABUSE COUNSELOR Temperature 36.2 ??C (97.2 ??F) 04/06/2020 2:29 PM CS T Respiratory Rate - - Oxygen Saturation - - Inhaled Oxygen Concentration - - Weight 103 kg (227 lb) 04/06/2020 2:29 PM DRUG ABUSE COUNSELOR Height - - Body Mass Index 32.57 [...] bone density scan - took alendronate from [id number]. ABUSE COUNSELOR documented in this encounter Plan of Treatment Upcoming Encounters Date Type Department Care Team (Late st Contact Info) Description 06/03/2024 1:00 PM DRUG ABUSE COUNSELOR Appointment [facility] - Rheumatology [address] [place] [address] 06/03/2024 2:00 PM DRUG ABUSE COUNSELOR Office Visit [facility] - Rheumatology [address] [place] [address] Gloria Smith MD [address] [place] [phone] documented as of this encounter Procedures Procedure Name Priority Date/Time Associated Diagnosis Comments CBC W AUTO DIFFERENTIAL Routine 05/04/2020 2:52 PM DRUG ABUSE COUNSELOR Rheumatoid arthritis of multiple sites with negative rheumatoid factor (HCC) COMPREHENSIVE METABOLIC PANEL Routine 05/04/2020 2:52 PM DRUG ABUSE COUNSELOR Rheumatoid arthritis of multiple sites with negative rheumatoid factor (HCC) documented in this encounter Results * (ABNORMAL) COMPREHENSIVE METABOLIC PANEL (05/04/2020 2:52 PM DRUG ABUSE COUNSELOR) Glucose 108(H) 70 - 105 mg/dL [facility] [...] BLOOD SPECIMEN / Unknown 05/04/2020 2:52 PM DRUG ABUSE COUNSELOR 05/04/2020 Narrative Resulting Agency Comment Lab Testing performed at: [facility] [id number] [place] [address] ?? [place] [id number] Gloria Smith MD LAB - CHEMISTRY MAIRI ARAUJO [facility] INSURANCE BILL [address] [place] [address] * CBC WITH DIFFERENTIAL (05/04/2020 2:52 PM DRUG ABUSE COUNSELOR) WBC 8.7 4.4 - 10.7 x10E9/L [facility] [...] x10E9/L [facility] INSURANCE BILL Comment:MPV [place] BLOOD ([facility]) 1 0.7 fl 9.4-12.9 Granulocytes % 44.6 [...] BLOOD SPECIMEN / Unknown 05/04/2020 2:52 PM DRUG ABUSE COUNSELOR 05/04/2020 Narrative Resulting Agency Comment Lab Testing performed at: [address] ?? [facility] [id number] Gloria Smith MD LAB - HEMATOLOGY ORD ERABLES [facility] INSURANCE BILL [address] [place] [address] documented in this encounter Visit Diagnoses Diagnosis Rheumatoid arthritis of multiple sites with negative rheumatoid factor (HCC)- Primary documented in this encounter Care Teams Glass Installer Technician Relationship Specialty Start Date End Date Tomas Hyman MD [address] [place] [address] PCP - General Family Medicine 09/05/18 Isidro Heredia MD Rheumatology 02/09/11 documented as of this encounter
--- OUTSIDE RECORDS SUMMARY | 2024-05-03 08:58 | XMS_ITS | Encounter Summary ---
Author Organization [facility] Address [address] [facility] [place] [address] Care Team Providers Care After School Program Teacher Name Role Phone Isidro Heredia MD Unavailable [phone] Tomas Hyman MD Primary Care Provider [phone] Encounter Details Date Type Department Care Team [...] COVID-19? No / Unsure 03/05/2020 11:52 AM EDGE BANDER HAND documented as of this encounter Plan of Treatment Upcoming Encounters Date Type Department Care Team (Late st Contact Info) Description 06/03/2024 1:00 PM EDGE BANDER HAND Appointment [facility] - Rheumatology [address] [place] [address] 06/03/2024 2:00 PM EDGE BANDER HAND Office Visit [facility] - Rheumatology [address] [place] [address] Gloria Smith MD [address] [place] [phone] documented as of this encounter Visit Diagnoses Not on filedocumented in this encounter Care Teams After School Program Teacher Relationship Specialty Start Date End Date Tomas Hyman MD [address] [facility] [address] [place] [address] PCP - General Family Medicine 09/05/18 Isdiro Heredia MD Rheumatology 02/09/11 documented as of this encounter
--- OUTSIDE RECORDS SUMMARY | 2024-05-03 08:58 | XMS_ITS | Encounter Summary ---
Author Organization [facility] Address [address] [place] [address] Care Team Providers Care Demand Planner Name Role Phone Isidro Heredia MD Unavailable [phone] Tomas Hyman MD Primary Care Provider [phone] Encounter Details Date Type Department Care Team [...] st Contact Info) Description 06/03/2024 1:00 PM JUVENILE PROBATION OFFICER Appointment [facility] - Rheumatology [address] [place] [address] 06/03/2024 2:00 PM JUVENILE PROBATION OFFICER Office Visit [facility] - Rheumatology [address] [place] [address] Gloria Smith MD [address] [place] [phone] documented as of this encounter Visit Diagnoses Not on filedocumented in this encounter Care Teams Demand Planner Relationship Specialty Start Date End Date Tomas Hyman MD [address] [facility] [address] [place] [address] PCP - General Family Medicine 09/05/18 Isidro Heredia MD Rheumatology 02/09/11 documented as of this encounter
--- OUTSIDE RECORDS SUMMARY | 2024-05-03 08:58 | XMS_ITS | Encounter Summary ---
Author Organization [facility] Address [address] [place] [address] Care Team Providers Care Process Analyst Name Role Phone Isidro Heredia MD Unavailable Tomas Hyman MD Primary Care Provider [phone] Reason for Visit * Treatment (Routine) - Closed Specialty Diagnoses / Procedures Referred By Lawrence shah Referred To Contact Infusion Therapy Nurse Diagnoses Rheumatoid arthritis without rheumatoid factor, multiple sites (HCC) Procedures [place] INFLIXIMAB INJECTION Gloria Smith MD [address] [place] [address] [address] Referral ID Status Reason Start Date Expiration Date Visits Re quested Visits Authorized [id number] Closed 05/09/2019 04/29/2020 1 12 Encounter Details Date Type Department Care Team (Late st Contact Info) Description 03/05/2020 10:37 AM DYE WORKER - 03/05/2020 11:59 PM DYE WORKER Hospital Encounter [facility] Medical [facility] - Rheumatology [address] [place] [address] Gloria Smith MD [address] [place] [phone] Discharge Disposition: Home or Self Care [...] COVID-19? No / Unsure 03/05/2020 11:52 AM DYE WORKER documented as of this encounter Last Filed Vital Signs Vital Sign Reading Time Taken Comments Blood Pressure 128/85 03/05/2020 11:20 AM DYE WORKER Pulse 77 03/05/2020 11:20 AM DYE WORKER Temperature 37.1 ??C (98.8 ??F) 03/05/2020 11:[address] Respiratory Rate 18 03/05/2020 11:20 AM DYE WORKER Oxygen Saturation - - Inhaled Oxygen Concentration - - Weight 103.9 kg (229 lb) 03/05/2020 11:20 AM DYE WORKER Height - - Body Mass Index 32.86 11/10/2019 10:34 AM CDT documented in this encounter Discharge Instructions * Discharge Instructions* Jody Sahu RN - 03/05/2020 11:45 AM DYE WORKER [place] Rheumatology Post Infusion instructions You have [...] through Sunday 9-5 call the office at [phone] After hours or on the weekend call the exchange at [phone] If you have had lab work done [...] chosen [facility] as your provider. Jody Sahu, RN WORKER documented in this encounter Medications at Time of Discharge Medication Sig Dispensed Refills Start Date End Date atorvastatin (LIPITOR) 40 MG tablet Take 1 (one) tablet by mouth at bedtime ujwvdnttexo-grvv-pso ysorb, PF, 0.5-1-0.5 % SOLN Instill 1 [...] - 03/05/2020 11:45 AM CST JOSE Deng [id number] 03/05/2020 Diagnosis: Rheumatoid arthritis without rheumatoid factor, multiple sites [M06.09]. Pt denies symptoms of infection or antibiotic use, no open wounds, or recent surgery, or plans for surgery in the next couple of weeks. Pt is aware that we use the 0-10 pain scale to assess discomfort. 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 net front end developer pt signs consent for [...] Next treatment? 4 weeks Jody Sahu, RN WORKER documented in this encounter Plan of Treatment Upcoming Encounters Date Type Department Care Team (Late st Contact Info) Description 06/03/2024 1:00 PM DYE WORKER Appointment [facility] - Rheumatology [address] [place] [phone] 06/03/2024 2:00 PM DYE WORKER Office Visit [facility] - Rheumatology [address] [place] [address] Gloria Smith MD [address] [place] [phone] documented as of this encounter Visit [...] filter. $ New Bag/Syringe 03/05/2020 11:39 AM DYE WORKER 600 mg 250 mL/hr documented in this encounter Care Teams Process Analyst Relationship Specialty Start Date End Date Tomas Hyman MD [address] [facility] [address] [place] [address] PCP - General Family Medicine 09/05/18 Isidro Heredia MD Rheumatology 02/09/11 documented as of this encounter
--- OUTSIDE RECORDS SUMMARY | 2024-05-03 08:58 | XMS_ITS | Encounter Summary ---
Author Organization [facility] Address [address] [place] [address] Care Team Providers Care Chucking Machine Set Up Operator Tool Name Role Phone Isidro Heredia MD Unavailable [phone] Tomas Hyman MD Primary Care Provider [phone] Encounter Details Date Type Department Care Team [...] Contact Info) Description 06/03/2024 1:00 PM CORE STRIPPER Appointment [facility] - Rheumatology [address] [place] [address] 06/03/2024 2:00 PM CORE STRIPPER Office Visit [facility] - Rheumatology [address] [place] [address] Gloria Smith MD [address] [place] [phone] documented as of this encounter Visit Diagnoses Not on filedocumented in this encounter Care Teams Chucking Machine Set Up Operator Tool Relationship Specialty Start Date End Date Tomas Hyman MD [address] [facility] [address] [place] [address] PCP - General Family Medicine 09/05/18 Isidro Heredia MD Rheumatology 02/09/11 documented as of this encounter
--- OUTSIDE RECORDS SUMMARY | 2024-05-03 08:58 | XMS_ITS | Encounter Summary ---
Author Organization [facility] Address [address] [place] [address] Care Team Providers Care Shop Repairer Name Role Phone Isidro Heredia MD Unavailable [phone] Tomas Hyman MD Primary Care Provider [phone] Reason for Visit * Reason Onset Date Comments MEDICATION REFILL 04/05/2020 Encounter Details Date Type Department Care Team (Late st Contact Info) Description 04/05/2020 Refill [facility] - Rheumatology [address] [place] [address] Gloria Smith MD [address] [place] [phone] MEDICATION REFILL Social History Tobacco Use [...] (Late Contact Info) Description 06/03/2024 1:00 PM ZIPPER SETTER Appointment [facility] - Rheumatology [address] [place] [address] 06/03/2024 2:00 PM ZIPPER SETTER Office Visit [facility] - Rheumatology [address] [place] [address] Gloria Smith MD [address] [place] [address] documented as of this encounter Visit Diagnoses Not on filedocumented in this encounter Care Teams Shop Repairer Relationship Specialty Start Date End Date Tomas Hyman MD [address] [place] [address] PCP - General Family Medicine 09/05/18 Isidro Heredia MD Rheumatology 02/09/11 documented as of this encounter
--- OUTSIDE RECORDS SUMMARY | 2024-05-03 08:58 | XMS_ITS | Encounter Summary ---
Author Organization [facility] Address [address] [facility] [place] [address] Care Team Providers Care Heel Seat Fitter Name Role Phone Isidro Heredia MD Unavailable [phone] Tomas Hyman MD Primary Care Provider [phone] Encounter Details Date Type Department Care Team (Latest Contact Info) Description 12/19/2019 10:58 AM CDT - 12/19/2019 11:59 PM CDT Hospital Encounter [facility] [address] [place] [address] [place] [address] [place] [address] Discharge Disposition: Home or Self [...] Paris RN - 12/19/2019 11:00 AM CDT [facility] Pain Discharge Instructions Selective [...] headache, or any other problems, please call [phone] or after hours callDr. Barnett at [phone] and tell them your physician's name. The exchange will alert the physician foreign correspondent. If sedation is given: No sedation given. For Your Next Visit: No additional instructions. Other Instructions: May remove band-aid in 12 Hours. Return in 3-[address] Lazar documented in this encounter Medications at Time of Discharge Medication Sig Dispensed Refills Start Date End Date atorvastatin (LIPITOR) 40 MG tablet Take 1 (one) tablet by mouth at bedtime cpxcfrlveyg-ogbf-tm lysorb, PF, 0.5-1-0.5 % SOLN Instill 1 [...] acute distress, well developed, well nourished categoryPropId= [id number] examid= [id number] GENERALAPPEARANCE: in no acute distress, well developed, well nourished. NC/AT, Symmetrical categoryPropId= [id number] examid= [id number] HEAD: NC/AT, Symmetrical. PERRLA, EOMI, Visual keen intact categoryPropId= [id number] examid= [id number] EYES: PERRLA, EOMI, Visual keen intact. Hearing intact categoryPropId= [id number] examid= [id number] EARS: Hearing intact. Supple, non-tender, no thyroidomegaly categoryPropId= [id number] examid= [id number] NECK/THYROID: Supple, non-tender, no thyroidomegaly. Lungs clear w/o wheezes, no rales or rhonchi categoryPropId= [id number] examid= [id number] RESPIRATORY: Lungs clear w/o wheezes, no rales or rhonchi. regular rate & rhythm, no murmurs categoryPropId= [id number] examid= [id number] HEART: regular rate & rhythm, no murmurs. [...] cm Diameter Left calf: 43 cm categoryPropId= [id number] examid= [id number] MUSCULOSKELETAL: ambulates with slow antalgic gait with [...] Skin w/o lesions, moist, well perfused categoryPropId= [id number] examid= [id number] SKIN: Skin w/o lesions, moist, well perfused. Patient alert & oriented, appropriate mood & affect, speech normal, tone normal, affect appropriate, NAD. Patient denies suicidal ideation. Patient denies homicidal ideation. categoryPropId= [id number] examid= [id number] PSYCH: Patient alert & oriented, appropriate mood & affect, speech normal, tone normal, affect appropriate, NAD. Patient denies suicidal ideation. Patient denieshomicidal ideation.. Active bowel sounds, soft, no mass or organomegaly categoryPropId= [id number] examid= [id number] GASTROINTESTINAL: Active bowel sounds, soft, no mass [...] DRAINS: None. COMPLICATIONS: None. CONDITION POSTPROCEDURE: Stable. YOUTUBER: None. INDICATIONS: Please refer to H/P for [...] on how to reach the clinic or foreign correspondent physician at anytime for questions or complaints. documented in this encounter Plan of Treatment Upcoming Encounters Date Type Department Care Team (Late st Contact Info) Description 06/03/2024 1:00 PM ARTS EDUCATION TEACHER Appointment [facility] - Rheumatology [address] [place] [phone] 06/03/2024 2:00 PM ARTS EDUCATION TEACHER Office Visit [facility] - Rheumatology [address] [place] [address] Gloria Smith MD [address] [place] [phone] Pending Results Name Type Priority Associated Diagnoses [...] Back documented in this encounter Care Teams Heel Seat Fitter Relationship Specialty Start Date End Date Tomas Hyman MD [address] [facility] [address] [place] [address] PCP - General Family Medicine 09/05/18 Isidro Heredia MD Rheumatology 02/09/11 documented as of this encounter
--- OUTSIDE RECORDS SUMMARY | 2024-05-03 08:58 | XMS_ITS | Encounter Summary ---
Author Organization [facility] Address [address] [facility] [place] [address] Care Team Providers Care Music Autographer Name Role Phone Isidro Heredia MD Unavailable [phone] Tomas Hyman MD Primary Care Provider [phone] Reason for Visit * Treatment (Routine) - Closed Specialty Diagnoses / Procedures Referred By Lawrence shah Referred To Contact Infusion Therapy Nurse Diagnoses Rheumatoid arthritis without rheumatoid factor, multiple sites (HCC) Procedures [place] INFLIXIMAB INJECTION Gloria Smith MD [address] [place] [address] [address] Referral ID Status Reason Start Date Expiration Date Visits Re quested Visits Authorized [id number] Closed 05/09/2019 04/29/2020 1 12 Encounter Details Date Type Department Care Team (Late st Contact Info) Description 02/06/2020 11:33 AM CDT - 02/06/2020 1:40 PM CDT Hospital Encounter [facility] Medical [facility] - Rheumatology [address] [place] [address] Gloria Smith MD [facility] [place] [address] Discharge Disposition: Home or Self [...] Sahu RN - 02/06/2020 11:55 AM CDT [place] Rheumatology Post Infusion instructions You [...] through Sunday 9-5 call the office at [phone] After hours or on the weekend call the exchange at [phone] If you have had lab work done [...] [facility] as your provider. Jody Sahu, RN documented in this encounter Medications at Time of Discharge Medication Sig Dispensed Refills Start Date End Date atorvastatin (LIPITOR) 40 MG tablet Take 1 (one) tablet by mouth at bedtime hvhdxmxulti-fhzf-wr lysorb, PF, 0.5-1-0.5 % SOLN Instill 1 [...] - 02/06/2020 12:00 PM CDT JOSE Deng [id number] 02/06/2020 Diagnosis: Rheumatoid arthritis without rheumatoid factor, [...] Contact Info) Description 06/03/2024 1:00 PM BOAT BUILDER AND REPAIRER Appointment [facility] - Rheumatology [address] [place] [address] [phone] 06/03/2024 2:00 PM BOAT BUILDER AND REPAIRER Office Visit [facility] - Rheumatology [address] [place] [address] Gloria Smith MD [address] [place] [phone] documented as of this encounter Visit Diagnoses [...] previously received three standard infliximab infusions at [facility], -Patient has no history of infusion-related hypersensitivity [...] mL/hr documented in this encounter Care Teams Music Autographer Relationship Specialty Start Date End Date Tomas Hyman MD [address] [place] [address] PCP - General Family Medicine 09/05/18 Isidro Heredia MD Rheumatology 02/09/11 documented as of this encounter
--- OUTSIDE RECORDS SUMMARY | 2024-05-03 08:59 | XMS_ITS | Encounter Summary ---
Author Organization [facility] Address [address] [facility] [place] [address] Care Team Providers Care Chemistry Lecturer Name Role Phone Isidro Heredia MD Unavailable [phone] Tomas Hyman MD Primary Care Provider [phone] Reason for Visit * Reason Onset Date Comments MEDICATION REFILL 07/13/2019 Encounter Details Date Type Department Care Team (Late st Contact Info) Description 07/13/2019 Refill [facility] - Rheumatology [address] [place] [address] Gloria Smith MD [address] [place] [phone] MEDICATION REFILL Social History Tobacco Use [...] (Late Contact Info) Description 06/03/2024 1:00 PM CABLE ASSEMBLER Appointment [facility] - Rheumatology [address] [place] [address] 06/03/2024 2:00 PM CABLE ASSEMBLER Office Visit [facility] - Rheumatology [address] [place] [address] Gloria Smith MD [address] [place] [address] documented as of this encounter Visit Diagnoses Not on filedocumented in this encounter Care Teams Chemistry Lecturer Relationship Specialty Start Date End Date Tomas Hyman MD [address] [place] [address] PCP - General Family Medicine 09/05/18 Isidro Heredia MD Rheumatology 02/09/11 documented as of this encounter
--- OUTSIDE RECORDS SUMMARY | 2024-05-03 08:59 | XMS_ITS | Encounter Summary ---
Author Organization [facility] Address [address] [facility] [place] [address] Care Team Providers Care Technical Specialist Cytology Name Role Phone Isidro Heredia MD Unavailable [phone] Tomas Hyman MD Primary Care Provider [phone] Reason for Visit * Reason Onset Date Comments MEDICATION REFILL 10/23/2019 Encounter Details Date Type Department Care Team (Late st Contact Info) Description 10/23/2019 Refill [facility] - Rheumatology [address] [place] [address] Gloria Smith MD [address] [place] [phone] MEDICATION REFILL Social History Tobacco Use [...] st Contact Info) Description 06/03/2024 1:00 PM MORGUE KEEPER Appointment [facility] - Rheumatology [address] [place] [address] [phone] 06/03/2024 2:00 PM MORGUE KEEPER Office Visit [facility] - Rheumatology [address] [place] [address] Gloria Smith MD [address] [place] [phone] documented as of this encounter Visit Diagnoses Not on filedocumented in this encounter Care Teams Technical Specialist Cytology Relationship Specialty Start Date End Date Tomas Hyman MD [address] [facility] [address] [place] [address] PCP - General Family Medicine 09/05/18 Isidro Heredia MD Rheumatology 02/09/11 documented as of this encounter
--- OUTSIDE RECORDS SUMMARY | 2024-05-03 08:59 | XMS_ITS | Encounter Summary ---
Author Organization [facility] Address [address] [facility] [place] [address] Care Team Providers Care Oyster Shipper Name Role Phone Isidro Heredia MD Unavailable [phone] Tomas Hyman MD Primary Care Provider [phone] Reason for Visit * Reason Comments Arthritis follow up Encounter Details Date Type Department Care Team (Late st Contact Info) Description 11/10/2019 10:40 AM CDT Office Visit [facility] - Rheumatology [address] [place] [address] Gloria Smith MD [address] [place] [phone] Rheumatoid arthritis of multiple sites with [...] Bilateral hand swollen in all fingers. Hand champagne maker decreased bilaterally. Shoulder range of motion decreased [...] bone density scan - took alendronate from [id number]. Chronic neck and back pain - follows with Pain Management and received epidural injections. - Off Percocet since July,. documented in this encounter Plan of Treatment Upcoming Encounters Date Type Department Care Team (Late st Contact Info) Description 06/03/2024 1:00 PM SENIOR RESEARCH FELLOW Appointment [facility] - Rheumatology [address] [place] [address] 06/03/2024 2:00 PM SENIOR RESEARCH FELLOW Office Visit [facility] - Rheumatology [address] [place] [address] [phone] Gloria Smith MD [address] [place] [phone] documented as of this encounter Visit Diagnoses Diagnosis Rheumatoid arthritis of multiple sites with negative rheumatoid factor (HCC)- Primary documented in this encounter Care Teams Oyster Shipper Relationship Specialty Start Date End Date Tomas Hyman MD [address] [place] [address] PCP - General Family Medicine 09/05/18 Isidro Heredia MD Rheumatology 02/09/11 documented as of this encounter
--- OUTSIDE RECORDS SUMMARY | 2024-05-03 08:59 | XMS_ITS | Encounter Summary ---
Author Organization [facility] Address [address] [facility] [place] [address] Care Team Providers Care Agriculture Research Director Name Role Phone Isidro Heredia MD Unavailable [phone] Tomas Hyman MD Primary Care Provider [phone] Encounter Details Date Type Department Care Team (Late Contact Info) Description 09/17/2019 Orders Only [facility] - Rheumatology [address] [place] [address] Gloria Smith MD [address] [place] [phone] Rheumatoid arthritis of multiple sites with [...] (Late Contact Info) Description 06/03/2024 1:00 PM HAND LAUNDERER Appointment [facility] - Rheumatology [address] [place] [address] 06/03/2024 2:00 PM HAND LAUNDERER Office Visit [facility] - Rheumatology [address] [place] [address] Gloria Smith MD [address] [place], [place] [address] [phone] documented as of this encounter Procedures Procedure [...] Resulting Agency Comment Lab Testing performed at: [facility] [address] ?? [place] [id number] Gloria Smith MD LAB - CHEMISTRY [facility]II [facility] INSURANCE BILL [address] [place] [address] documented in this encounter Visit Diagnoses Diagnosis Rheumatoid arthritis of multiple sites with negative rheumatoid factor (HCC) documented in this encounter Care Teams Agriculture Research Director Relationship Specialty Start Date End Date Tomas Hyman MD [address] [place] [address] PCP - General Family Medicine 09/05/18 Isidro Heredia MD Rheumatology 02/09/11 documented as of this encounter
--- OUTSIDE RECORDS SUMMARY | 2024-05-03 08:59 | XMS_ITS | Encounter Summary ---
Author Organization [facility] Address [address] [facility] [place] [address] Care Team Providers Care Venue Attendant Name Role Phone Isidro Heredia MD Unavailable [phone] Tomas Hyman MD Primary Care Provider [phone] Reason for Visit * Treatment (Routine) - Closed Specialty Diagnoses / Procedures Referred By Lawrence shah Referred To Contact Infusion Therapy Nurse Diagnoses Rheumatoid arthritis without rheumatoid factor, multiple sites (HCC) Procedures [place] INFLIXIMAB INJECTION Gloria Smith MD [address] [place] [address] [facility] [address] [place] [phone] Referral ID Status Reason Start Date Expiration Date Visits Re quested Visits Authorized [id number] Closed 05/09/2019 04/29/2020 1 12 Encounter Details Date Type Department Care Team (Late st Contact Info) Description 09/26/2019 9:49 AM CDT - 09/26/2019 11:59 PM CDT Hospital Encounter [facility] - Rheumatology [address] [facility] [place] [address] Gloria Smith MD [address] [place] [address] Discharge Disposition: Home or Self [...] through Sunday 9-5 call the office at [phone] After hours or on the weekend call the exchange at [phone] If you have had lab work done [...] 1 (one) tablet by mouth at bedtime apalilnvneq-ztwe-jg lysorb, PF, 0.5-1-0.5 % SOLN Instill 1 [...] - 09/26/2019 10:00 AM CDT JOSE Deng [id number] 09/26/2019 Diagnosis: Rheumatoid arthritis without rheumatoid factor, [...] Contact Info) Description 06/03/2024 1:00 PM SALES DRIVER Appointment [facility] - Rheumatology [address] [place] [address] 06/03/2024 2:00 PM SALES DRIVER Office Visit [facility] - Rheumatology [address] [place] [address] [phone] Gloira Smith MD [address] [place] [phone] documented as of this encounter Visit [...] three standard infliximab infusions at [facility] -Patient has no history of infusion-related hypersensitivity [...] mL/hr documented in this encounter Care Teams Venue Attendant Relationship Specialty Start Date End Date Tomas Hyman MD [address] [facility] [address] [place] [address] PCP - General Family Medicine 09/05/18 Isidro Heredia MD Rheumatology 02/09/11 documented as of this encounter
--- OUTSIDE RECORDS SUMMARY | 2024-05-03 08:59 | XMS_ITS | Encounter Summary ---
Author Organization [facility] Address [address] [facility] [place] [address] Care Team Providers Care Ent Consultant Name Role Phone Isidro Heredia MD Unavailable [phone] Tomas Hyman MD Primary Care Provider [phone] Reason for Visit * Treatment (Routine) - Closed Specialty Diagnoses / Procedures Referred By Lawrence shah Referred To Contact Infusion Therapy Nurse Diagnoses Rheumatoid arthritis without rheumatoid factor, multiple sites (HCC) Procedures [place] INFLIXIMAB INJECTION Gloria Smith MD [address] [place] [address] [address] Referral ID Status Reason Start Date Expiration Date Visits Re quested Visits Authorized [id number] Closed 05/09/2019 04/29/2020 1 12 Encounter Details Date Type Department Care Team (Late st Contact Info) Description 07/18/2019 10:44 AM CDT - 07/18/2019 11:59 PM CDT Hospital Encounter [facility] - Rheumatology [address] [place] [address] Gloria Smith MD [facility] [place] [address] Discharge Disposition: Home or Self [...] Sahu RN - 07/18/2019 11:47 AM CDT [place] Rheumatology Post Infusion instructions [...] Sunday through 01-02 call the office at [phone] After hours or on the weekend call the exchange at [phone] If you have had lab work done [...] 1 (one) tablet by mouth at bedtime oatlmotdepy-cdaj-km lysorb, PF, 0.5-1-0.5 % SOLN Instill 1 [...] - 07/18/2019 11:00 AM CDT JOSE Deng [id number] 07/18/2019 Diagnosis: Rheumatoid arthritis without rheumatoid factor, multiple sites [M06.09]. Pt denies symptoms of infection or antibiotic use, no open wounds, or recent surgery, or plans for surgery in the next couple of weeks. Pt is aware that we use the 0-10 pain scale to assess discomfort. 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 bowling or skating front desk clerk pt signs consent for treatment for [...] st Contact Info) Description 06/03/2024 1:00 PM PUZZLE ASSEMBLER Appointment [facility] - Rheumatology [address] [place] [address] 06/03/2024 2:00 PM PUZZLE ASSEMBLER Office Visit [facility] - Rheumatology [address] [place] [address] Gloria Smith MD [address] [place] [phone] documented as of this encounter Visit [...] mL/hr documented in this encounter Care Teams Ent Consultant Relationship Specialty Start Date End Date Tomas Hyman MD [address] [place] [address] PCP - General Family Medicine 09/05/18 Isidro Heredia MD Rheumatology 02/09/11 documented as of this encounter
--- OUTSIDE RECORDS SUMMARY | 2024-05-03 08:59 | XMS_ITS | Encounter Summary ---
Author Organization [facility] Address [address] [place] [address] Care Team Providers Care Bilingual Administrative Assistant Name Role Phone Isidro Heredia MD Unavailable [phone] Tomas Hyman MD Primary Care Provider [phone] Encounter Details Date Type Department Care Team [...] Info) Description 06/03/2024 1:00 PM HELP DESK SUPERVISOR Appointment [facility] - Rheumatology [address] [place] [address] 06/03/2024 2:00 PM HELP DESK SUPERVISOR Office Visit [facility] - Rheumatology [address] [place] [address] Gloria Smith MD [address] [place] [phone] documented as of this encounter Visit Diagnoses Not on filedocumented in this encounter Care Teams Bilingual Administrative Assistant Relationship Specialty Start Date End Date Tomas Hyman MD [address] [facility] [address] [place] [address] PCP - General Family Medicine 09/05/18 Isidro Heredia MD Rheumatology 02/09/11 documented as of this encounter
--- OUTSIDE RECORDS SUMMARY | 2024-05-03 08:59 | XMS_ITS | Encounter Summary ---
Author Organization [facility] Address [address] [facility] [place] [address] Care Team Providers Care Cooler Deliverer Name Role Phone Isidro Heredia MD Unavailable [phone] Tomas Hyman MD Primary Care Provider [phone] Encounter Details Date Type Department Care Team (Latest Contact Info) Description 08/05/2019 10:45 AM CDT - 08/05/2019 11:59 PM CDT Hospital Encounter [facility] [address] [place] [address] [place] [address] [place] [address] Discharge Disposition: Home or Self [...] Paris RN - 08/05/2019 10:45 AM CDT [facility] Procedure [...] headache, or any other problems, please call [phone] or after hours callDr. Barnett at [phone] and tell them your physician's name. The exchange will alert the physician expedition supervisor. If sedation is given: No sedation given. For Your Next Visit: No additional instructions. Other Instructions: May remove band-aid in 12 Hours. Return in 3-[address] Barnett documented in this encounter Medications at Time of Discharge Medication Sig Dispensed Refills Start Date End Date atorvastatin (LIPITOR) 40 MG tablet Take 1 (one) tablet by mouth at bedtime mdnmnhokatg-mohd-ch lysorb, PF, 0.5-1-0.5 % SOLN Instill 1 [...] Patient has been attending physical therapy at [place], [place] since 07/02/2019 without sustained pain releif. [...] with plain water Orally every 7 days. [place] 5-325 MG Tablet 1 tablet as needed [...] acute distress, well developed, well nourished categoryPropId= [id number] examid= [id number] GENERALAPPEARANCE: in no acute distress, well developed, well nourished. NC/AT, Symmetrical categoryPropId= [id number] examid= [id number] HEAD: NC/AT, Symmetrical. PERRLA, EOMI, Visual keen intact categoryPropId= [id number] examid= [id number] EYES: PERRLA, EOMI, Visual keen intact. Hearing intact categoryPropId= [id number] examid= [id number] EARS: Hearing intact. Supple, non-tender, no thyroidomegaly categoryPropId= [id number] examid= [id number] NECK/THYROID: Supple, non-tender, no thyroidomegaly. Lungs clear w/o wheezes, no rales or rhonchi categoryPropId= [id number] examid= [id number] RESPIRATORY: Lungs clear w/o wheezes, no rales or rhonchi. regular rate & rhythm, no murmurs categoryPropId= [id number] examid= [id number] HEART: regular rate & rhythm, no murmurs. [...] cm Diameter Left calf: 43 cm categoryPropId= [id number] examid= [id number] MUSCULOSKELETAL: ambulates with slow antalgic gait with [...] Skin w/o lesions, moist, well perfused categoryPropId= [id number] examid= [id number] SKIN: Skin w/o lesions, moist, well perfused. Patient alert & oriented, appropriate mood & affect, speech normal, tone normal, affect appropriate, NAD. Patient denies suicidal ideation. Patient denies homicidal ideation. categoryPropId= [id number] examid= [id number] PSYCH: Patient alert & oriented, appropriate mood & affect, speech normal, tone normal, affect appropriate, NAD. Patient denies suicidal ideation. Patient denieshomicidal ideation.. Active bowel sounds, soft, no mass or organomegaly categoryPropId= [id number] examid= [id number] GASTROINTESTINAL: Active bowel sounds, soft, no mass [...] telehealth vs in office follow up with [facility] s/p DOI) documented in this encounter OR [...] DRAINS: None. COMPLICATIONS: None. CONDITION POSTPROCEDURE: Stable. ASSOCIATE ENGINEER: None. INDICATIONS: Please refer to H/P for [...] on how to reach the clinic or expedition supervisor physician at anytime for questions or complaints. documented in this encounter Plan of Treatment Upcoming Encounters Date Type Department Care Team (Late st Contact Info) Description 06/03/2024 1:00 PM VALET PARKER Appointment [facility] - Rheumatology [address] [place] [address] 06/03/2024 2:00 PM VALET PARKER Office Visit [facility] - Rheumatology [address] [place] [address] [phone] Gloria Smith MD [address] [place] [phone] Pending Results Name Type Priority Associated Diagnoses [...] comments documented in this encounter Care Teams Cooler Deliverer Relationship Specialty Start Date End Date Tomas Hyman MD [address] [facility] [address] [place] [address] PCP - General Family Medicine 09/05/18 Isidro Heredia MD Rheumatology 02/09/11 documented as of this encounter
--- OUTSIDE RECORDS SUMMARY | 2024-05-03 08:59 | XMS_ITS | Encounter Summary ---
Author Organization [facility] Address [address] [facility] [place] [address] Care Team Providers Care Insole Channeler Name Role Phone Isidro Heredia MD Unavailable [phone] Tomas Hyman MD Primary Care Provider [phone] Encounter Details Date Type Department Care Team [...] st Contact Info) Description 06/03/2024 1:00 PM BACK STAYER Appointment [facility] - Rheumatology [address] [place] [address] 06/03/2024 2:00 PM BACK STAYER Office Visit [facility] - Rheumatology [address] [place] [address] Gloria Smith MD [address] [place] [phone] documented as of this encounter Visit Diagnoses Not on filedocumented in this encounter Care Teams Insole Channeler Relationship Specialty Start Date End Date Tomas Hyman MD [address] [facility] [address] [place] [address] PCP - General Family Medicine 09/05/18 Isidro Heredia MD Rheumatology 02/09/11 documented as of this encounter
--- OUTSIDE RECORDS SUMMARY | 2024-05-03 08:59 | XMS_ITS | Encounter Summary ---
Author Organization [facility] Address [address] [facility] [place] [address] Care Team Providers Care Bilingual Branch Manager Name Role Phone Isidro Heredia MD Unavailable [phone] Tomas Hyman MD Primary Care Provider [phone] Encounter Details Date Type Department Care Team (Late Contact Info) Description 08/28/2019 Orders Only [facility] - Rheumatology [address] [place] [address] Gloria Smith MD [address] [place] [phone] Social History Tobacco Use Types Packs/Day [...] (Late Contact Info) Description 06/03/2024 1:00 PM TRIAGE NURSE Appointment [facility] - Rheumatology [address] [place] [address] 06/03/2024 2:00 PM TRIAGE NURSE Office Visit [facility] - Rheumatology [address] [place] [address] Gloria Smith MD [address] [place] [phone] documented as of this encounter Visit Diagnoses Not on filedocumented in this encounter Care Teams Bilingual Branch Manager Relationship Specialty Start Date End Date Tomas Hyman MD [address] [facility] [address] [place] [address] PCP - General Family Medicine 09/05/18 Isidro Heredia MD Rheumatology 02/09/11 documented as of this encounter
--- OUTSIDE RECORDS SUMMARY | 2024-05-03 08:59 | XMS_ITS | Encounter Summary ---
Author Organization [facility] Address [address] [place] [address] Care Team Providers Care Architect Internship Name Role Phone Isidro Heredia MD Unavailable [phone] Tomas Hyman MD Primary Care Provider [phone] Encounter Details Date Type Department Care Team [...] st Contact Info) Description 06/03/2024 1:00 PM GEM SETTER Appointment [facility] Medical [facility] - Rheumatology [address] [place] [address] 06/03/2024 2:00 PM GEM SETTER Office Visit [facility] Medical [facility] - Rheumatology [address] [place] [address] Gloria Smith MD [address] [place] [phone] documented as of this encounter Visit Diagnoses Not on filedocumented in this encounter Care Teams Architect Internship Relationship Specialty Start Date End Date Tomas Hyman MD [address] [place] [address] PCP - General Family Medicine 09/05/18 Isidro Heredia MD Rheumatology 02/09/11 documented as of this encounter
--- OUTSIDE RECORDS SUMMARY | 2024-05-03 08:59 | XMS_ITS | Encounter Summary ---
Author Organization [facility] Address [address] [facility] [place] [address] Care Team Providers Care Chemotherapist Name Role Phone Isidro Heredia MD Unavailable [phone] Tomas Hyman MD Primary Care Provider [phone] Reason for Visit * Reason Onset Date Comments MEDICATION REFILL 10/24/2019 MEDICATION REFILL 11/10/2019 Encounter Details Date Type Department Care Team (Late st Contact Info) Description 10/24/2019 Refill [facility] Medical [facility] - Rheumatology [address] [place] [address] Gloria Smith MD [address] [place] [phone] MEDICATION REFILL; MEDICATION REFILL Social History [...] st Contact Info) Description 06/03/2024 1:00 PM MOTOR BOSS Appointment [facility] - Rheumatology [address] [place] [phone] 06/03/2024 2:00 PM MOTOR BOSS Office Visit [facility] - Rheumatology [address] [place] [address] [phone] Gloria Smith MD [address] [place] [phone] documented as of this encounter Visit Diagnoses Not on filedocumented in this encounter Care Teams Chemotherapist Relationship Specialty Start Date End Date Tomas Hyman MD [address] [facility] [address] [place] [address] PCP - General Family Medicine 09/05/18 Isidro Heredia MD Rheumatology 02/09/11 documented as of this encounter
--- OUTSIDE RECORDS SUMMARY | 2024-05-03 08:59 | XMS_ITS | Encounter Summary ---
Author Organization [facility] Address [address] [place] [address] Care Team Providers Care Comparator Operator Name Role Phone Isidro Heredia MD Unavailable [phone] Tomas Hyman MD Primary Care Provider [phone] Encounter Details Date Type Department Care Team [...] st Contact Info) Description 06/03/2024 1:00 PM PRIMER POWDER BLENDER WET Appointment [facility] Medical [facility] - Rheumatology [address] [place] [address] 06/03/2024 2:00 PM PRIMER POWDER BLENDER WET Office Visit [facility] Medical [facility] - Rheumatology [address] [place] [address] Gloria Smith MD [address] [place] [phone] documented as of this encounter Visit Diagnoses Not on filedocumented in this encounter Care Teams Comparator Operator Relationship Specialty Start Date End Date Tomas Hyman MD [address] [place] [address] PCP - General Family Medicine 09/05/18 Isidro Heredia MD Rheumatology 02/09/11 documented as of this encounter
--- OUTSIDE RECORDS SUMMARY | 2024-05-03 08:59 | XMS_ITS | Encounter Summary ---
Author Organization [facility] Address [address] [place] [address] Care Team Providers Care Vice President Of Talent Acquisition Name Role Phone Isidro Heredia MD Unavailable [phone] Tomas Hyman MD Primary Care Provider [phone] Reason for Visit * Reason Onset Date Comments Infusion 09/24/2019 Encounter Details Date Type Department Care Team (Late st Contact Info) Description 09/24/2019 Telephone [facility] Medical [facility] - Rheumatology [address] [place] [address] Gloria Smith MD [address] [place] [phone] Infusion Social History Tobacco Use Types [...] st Contact Info) Description 06/03/2024 1:00 PM CARD CUTTER HELPER Appointment [facility] - Rheumatology [address] [place] [phone] 06/03/2024 2:00 PM CARD CUTTER HELPER Office Visit [facility] - Rheumatology [address] [place] [address] [phone] Gloria Smith MD [address] [place] [phone] documented as of this encounter Visit Diagnoses Not on filedocumented in this encounter Care Teams Vice President Of Talent Acquisition Relationship Specialty Start Date End Date Tomas Hyman MD [address] [facility] [address] [place] [address] PCP - General Family Medicine 09/05/18 Isidro Heredia MD Rheumatology 02/09/11 documented as of this encounter
--- OUTSIDE RECORDS SUMMARY | 2024-05-03 08:59 | XMS_ITS | Encounter Summary ---
Author Organization [facility] Address [address] [place] [address] Care Team Providers Care Manager Gift Name Role Phone Isidro Heredia MD Unavailable [phone] Tomas Hyman MD Primary Care Provider [phone] Encounter Details Date Type Department Care Team [...] st Contact Info) Description 06/03/2024 1:00 PM WINE CELLAR WORKER Appointment [facility] - Rheumatology [address] [place] [address] 06/03/2024 2:00 PM WINE CELLAR WORKER Office Visit [facility] - Rheumatology [address] [place] [address] Gloria Smith MD [address] [place] [phone] documented as of this encounter Visit Diagnoses Not on filedocumented in this encounter Care Teams Manager Gift Relationship Specialty Start Date End Date Tomas Hyman MD [address] [facility] [address] [place] [address] PCP - General Family Medicine 09/05/18 Isidro Heredia MD Rheumatology 02/09/11 documented as of this encounter
--- OUTSIDE RECORDS SUMMARY | 2024-05-03 08:59 | XMS_ITS | Encounter Summary ---
Author Organization [facility] Address [address] [place] [address] Care Team Providers Care Clean Rice Grader And Reel Tender Name Role Phone Isidro Heredia MD Unavailable [phone] Tomas Hyman MD Primary Care Provider [phone] Reason for Visit * Treatment (Routine) - Closed Specialty Diagnoses / Procedures Referred By Lawrence shah Referred To Contact Infusion Therapy Nurse Diagnoses Rheumatoid arthritis without rheumatoid factor, multiple sites (HCC) Procedures [place] INFLIXIMAB INJECTION Gloria Smith MD [address] [place] [address] [facility] [address] [place] [phone] Referral ID Status Reason Start Date Expiration Date Visits Re quested Visits Authorized [id number] Closed 05/09/2019 04/29/2020 1 12 Encounter Details Date Type Department Care Team (Late st Contact Info) Description 08/29/2019 10:00 AM CDT - 08/29/2019 11:59 PM CDT Hospital Encounter [facility] - Rheumatology [address] [facility] [place] [address] Gloria Smith MD [address] [place] [address] Discharge Disposition: Home or Self [...] - 08/29/2019 10:12 AM CDT Discharge Instructions [facility] Rheumatology You have received your infusion treatment [...] through Sunday 9-5 call the office at [phone]. After hours or on the weekend call the exchange at [phone]. If you have had lab work done [...] 1 (one) tablet by mouth at bedtime zvvjobroszq-dzle-vw lysorb, PF, 0.5-1-0.5 % SOLN Instill 1 [...] - 08/29/2019 10:00 AM CDT JOSE Deng [id number] 08/29/2019 Diagnosis: Rheumatoid arthritis without rheumatoid factor, [...] st Contact Info) Description 06/03/2024 1:00 PM PHYSIOTHERAPY PRACTICE MANAGER Appointment [facility] - Rheumatology [address] [place] [address] 06/03/2024 2:00 PM PHYSIOTHERAPY PRACTICE MANAGER Office Visit [facility] - Rheumatology [address] [place] [address] Gloria Smith MD [address] [place] [phone] documented as of this encounter Visit [...] previously received three standard infliximab infusions at [facility] -Patient has no history of infusion-related hypersensitivity [...] mL/hr documented in this encounter Care Teams Clean Rice Grader And Reel Tender Relationship Specialty Start Date End Date Tomas Hyman MD [address] [place] [address] PCP - General Family Medicine 09/05/18 Isidro Heredia MD Rheumatology 02/09/11 documented as of this encounter
--- OUTSIDE RECORDS SUMMARY | 2024-05-03 08:59 | XMS_ITS | Encounter Summary ---
Author Organization [facility] Address [address] [place] [address] Care Team Providers Care Scrap Sawyer Name Role Phone Isidro Heredia MD Unavailable [phone] Tomas Hyman MD Primary Care Provider [phone] Encounter Details Date Type Department Care Team [...] st Contact Info) Description 06/03/2024 1:00 PM DIMENSION WAREHOUSE SUPERVISOR Appointment [facility] - Rheumatology [address] [place] [address] 06/03/2024 2:00 PM DIMENSION WAREHOUSE SUPERVISOR Office Visit [facility] - Rheumatology [address] [place] [address] Gloria Smith MD [address] [place] [phone] documented as of this encounter Visit Diagnoses Not on filedocumented in this encounter Care Teams Scrap Sawyer Relationship Specialty Start Date End Date Tomas Hyman MD [address] [facility] [address] [place] [address] PCP - General Family Medicine 09/05/18 Isidro Heredia MD Rheumatology 02/09/11 documented as of this encounter
--- OUTSIDE RECORDS SUMMARY | 2024-05-03 08:59 | XMS_ITS | Encounter Summary ---
Author Organization [facility] Address [address] [facility] [place] [address] Care Team Providers Care Roading Engineer Name Role Phone Isidro Heredia MD Unavailable [phone] Tomas Hyman MD Primary Care Provider [phone] Reason for Visit * Reason Onset Date Comments MEDICATION REFILL 10/23/2019 Encounter Details Date Type Department Care Team (Late Contact Info) Description 10/23/2019 Refill [facility] - Rheumatology [address] [place], [place] [phone] Mychart, Generic Provider MEDICATION REFILL Social History [...] (Late Contact Info) Description 06/03/2024 1:00 PM GIS ADMINISTRATOR Appointment [facility] - Rheumatology [address] [place] [address] 06/03/2024 2:00 PM GIS ADMINISTRATOR Office Visit [facility] - Rheumatology [address] [place] [address] Gloria Smith MD [address] [place] [phone] documented as of this encounter Visit Diagnoses Not on filedocumented in this encounter Care Teams Roading Engineer Relationship Specialty Start Date End Date Tomas Hyman MD [address] [place] [address] PCP - General Family Medicine 09/05/18 Isidro Heredia MD Rheumatology 02/09/11 documented as of this encounter
--- OUTSIDE RECORDS SUMMARY | 2024-05-03 08:59 | XMS_ITS | Encounter Summary ---
Author Organization [facility] Address [address] [facility] [place] [address] Care Team Providers Care Dispute Resolution Specialist Name Role Phone Isidro Heredia MD Unavailable [phone] Tomas Hyman MD Primary Care Provider [phone] Reason for Referral * Auth/Cert (Routine) - Incomplete Specialty Diagnoses / Procedures Referred By Contsarahi t Referred To Contact Diagnoses Rheumatoid arthritis of multiple sites with negative rheumatoid factor (HCC) Procedures LA DRAIN/INJECT LARGE JOINT/BURSA Gloria Dillon MD [address] [place] [address] Referral ID Status Reason Start Date Expiration Date V isits Requested Visits Authorized [id number] Incomplete 08/29/2019 02/25/2020 1 1 Reason for Visit * Reason Comments Arthritis follow up Encounter Details Date Type Department Care Team (Late st Contact Info) Description 08/29/2019 11:40 AM CDT Video Visit [facility] - Rheumatology [address] [place] [address] Gloria Dillon MD [address] [place] [address] Rheumatoid arthritis of multiple sites [...] of motion is limited because ofpain. Hand news reel cameraman is decreased. LABORATORY: Recent Labs Component Name [...] st Contact Info) Description 06/03/2024 1:00 PM STICK PULLER Appointment [facility] - Rheumatology [address] [place] [address] [phone] 06/03/2024 2:00 PM STICK PULLER Office Visit [facility] - Rheumatology [address] [place] [address] [phone] Gloria Dillon MD [address] [place] [phone] documented as of this encounter Procedures Procedure [...] performed at: [facility] [address] [place] [address] ?? [facility] [id number] Gloria Dillon MD LAB - CHEMISTRY [facility] INSURANCE BILL [address] [place] [address] * (ABNORMAL) COMPREHENSIVE METABOLIC PANEL (08/29/2019 12:45 [...] Resulting Agency Comment Lab Testing performed at: [facility] ??formerly [facility] [id number] Gloria Dillon MD LAB - CHEMISTRY MARII ARAUJO [facility] INSURANCE BILL [address] [place] [address] * (ABNORMAL) CBC WITH DIFFERENTIAL (08/29/2019 12:45 [...] Resulting Agency Comment Lab Testing performed at: [facility] [address] [facility] ??formerly [facility] [phone] Gloria Dillon MD LAB - HEMATOLOGY ORD ERABLES [facility] INSURANCE BILL [address] [place] [address] documented in this encounter Visit Diagnoses Diagnosis [...] Shoulder documented in this encounter Care Teams Dispute Resolution Specialist Relationship Specialty Start Date End Date Tomas Hyman MD [address] [address] [address] [place] [address] PCP - General Family Medicine 09/05/18 Isidro Heredia MD Rheumatology 02/09/11 documented as of this encounter
--- OUTSIDE RECORDS SUMMARY | 2024-05-03 08:59 | XMS_ITS | Encounter Summary ---
Author Organization [facility] Address [address] [facility] [place] [address] Care Team Providers Care Due Diligence Coordinator Name Role Phone Isidro Heredia MD Unavailable [phone] Tomas Hyman MD Primary Care Provider [phone] Encounter Details Date Type Department Care Team (Late Contact Info) Description 08/29/2019 Orders Only [facility] - Rheumatology [address] [place] [address] Gloria Smith MD [address] [place] [address] Social History Tobacco Use Types Packs/Day [...] (Late Contact Info) Description 06/03/2024 1:00 PM SIMULATION ENGINEER Appointment [facility] - Rheumatology [address] [place] [address] 06/03/2024 2:00 PM SIMULATION ENGINEER Office Visit [facility] - Rheumatology [address] [place] [address] Gloria Smith MD [address] [place] [phone] documented as of this encounter Visit Diagnoses Not on filedocumented in this encounter Care Teams Due Diligence Coordinator Relationship Specialty Start Date End Date Tomas Hyman MD [address] [facility] [address] [place] [address] PCP - General Family Medicine 09/05/18 Isidro Heredia MD Rheumatology 02/09/11 documented as of this encounter
--- OUTSIDE RECORDS SUMMARY | 2024-05-03 09:00 | XMS_ITS | Encounter Summary ---
Author Organization [facility] Address [address] [facility] [place] [address] Care Team Providers Care Funeral Pre Need Consultant Name Role Phone Isidro Heredia MD Unavailable [phone] Tomas Hyman MD Primary Care Provider [phone] Reason for Visit * Treatment (Routine) - Closed Specialty Diagnoses / Procedures Referred By Lawrence t Referred To Contact Infusion Therapy Nurse Diagnoses Rheumatoid arthritis without rheumatoid factor, multiple sites (HCC) Procedures [place] INFLIXIMAB INJECTION Isidro Heredia MD [address] [place] [address] [address] Referral ID Status Reason Start Date Expiration Date Visits Re quested Visits Authorized [id number] Closed 05/13/2018 04/29/2019 1 12 Encounter Details Date Type Department Care Team (Late st Contact Info) Description 04/18/2019 11:45 AM VERTICA ARCHITECT - 04/18/2019 1:32 PM VERTICA ARCHITECT Hospital Encounter [facility] Medical [facility] - Rheumatology [address] [place] [address] Gloria Smith MD [address] [place] [address] Discharge Disposition: Home or Self Care [...] Comments Blood Pressure 138/80 04/18/2019 12:12 PM VERTICA ARCHITECT Pulse 71 04/18/2019 12:12 PM VERTICA ARCHITECT Temperature 37.1 ??C (98.8 ??F) 04/18/2019 12:[address] Respiratory Rate 17 04/18/2019 12:12 PM VERTICA ARCHITECT Oxygen Saturation - - Inhaled Oxygen Concentration - - Weight 107.5 kg (237 lb) 04/18/2019 12:12 PM VERTICA ARCHITECT Height - - Body Mass Index 34.01 09/05/2018 10:54 AM CDT documented in this encounter Discharge Instructions * Discharge Instructions* Jody Sahu RN - 04/18/2019 12:19 PM VERTICA ARCHITECT [place] Rheumatology Post Infusion instructions You have [...] through Sunday 9-5 call the office at [phone] After hours or on the weekend call the exchange at [phone] If you have had lab work done [...] Hospital as your provider. Jody Sahu RN ICA ARCHITECT documented in this encounter Medications at Time of Discharge Medication Sig Dispensed Refills Start Date End Date atorvastatin (LIPITOR) 40 MG tablet Take 1 (one) tablet by mouth at bedtime qvzpzogbbto-frew-kmz ysorb, PF, 0.5-1-0.5 % SOLN Instill 1 [...] 04/18/2019 12:26 PM CST JOSE Allred Deng [id number] 04/18/2019 Diagnosis: Rheumatoid arthritis without rheumatoid factor, [...] Next treatment? 6 weeks Jody Sahu RN ICA ARCHITECT documented in this encounter Plan of Treatment Upcoming Encounters Date Type Department Care Team (Late st Contact Info) Description 06/03/2024 1:00 PM VERTICA ARCHITECT Appointment [facility] - Rheumatology [address] [place] [address] 06/03/2024 2:00 PM VERTICA ARCHITECT Office Visit [facility] - Rheumatology [address] [place] [address] Gloria Smith MD [address] [place] [phone] documented as of this encounter Visit [...] filter. $ New Bag/Syringe 04/18/2019 12:27 PM VERTICA ARCHITECT 400 mg 135 mL/hr documented in this encounter Care Teams Funeral Pre Need Consultant Relationship Specialty Start Date End Date Tomas Hyman MD [address] [facility] [address] [place] [address] PCP - General Family Medicine 09/05/18 Isidro Heredia MD Rheumatology 02/09/11 documented as of this encounter
--- OUTSIDE RECORDS SUMMARY | 2024-05-03 09:00 | XMS_ITS | Encounter Summary ---
Author Organization [facility] Address [address] [facility] [place] [address] Care Team Providers Care Public Transit Trolley Driver Name Role Phone Isidro Heredia MD Unavailable [phone] Tomas Hyman MD Primary Care Provider [phone] Encounter Details Date Type Department Care Team (Late st Contact Info) Description 01/24/2019 Orders Only [facility] Medical [facility] - Rheumatology [address] [place] [address] Gloria Smith MD [address] [place] [phone] Rheumatoid arthritis of multiple sites with [...] know that his lab tests are normal. OGRAPHIC PROOFER * Ella Peters - 01/24/2019 3:23 PM CDT Patient was here today and is requesting orders for labs. documented in this encounter Plan of Treatment Upcoming Encounters Date Type Department Care Team (Late st Contact Info) Description 06/03/2024 1:00 PM LITHOGRAPHIC PROOFER Appointment [facility] - Rheumatology [address] [place] [address] 06/03/2024 2:00 PM LITHOGRAPHIC PROOFER Office Visit [facility] - Rheumatology [address] [place] [address] Gloria Smith MD [address] [place] [phone] documented as of this encounter Procedures Procedure Name Priority Date/Time Associated Diagnosis Comments C-REACTIVE PROTEIN Routine 03/06/2019 11 :34 AM LITHOGRAPHIC PROOFER Rheumatoid arthritis of multiple sites with negative rheumatoid factor (HCC) ERYTHROCYTE SEDIMENTATION RATE Routine 03/06/2019 11:34 AM LITHOGRAPHIC PROOFER Rheumatoid arthritis of multiple sites with negative rheumatoid factor (HCC) CBC W AUTO DIFFERENTIAL Routine 03/06/2019 11:34 AM LITHOGRAPHIC PROOFER Rheumatoid arthritis of multiple sites with negative rheumatoid factor (HCC) COMPREHENSIVE METABOLIC PANEL Routine 03/06/2019 11:34 AM LITHOGRAPHIC PROOFER Rheumatoid arthritis of multiple sites with negative rheumatoid factor (HCC) documented in this encounter Results * C-REACTIVE PROTEIN (03/06/2019 11:34 AM LITHOGRAPHIC PROOFER) C-Reactive Protein 0.31 <=0.50 mg/dL [facility] INSURANCE BILL Blood BLOOD SPECIMEN / Unknown 03/06/2019 11:34 AM LITHOGRAPHIC PROOFER 03/06/2019 Narrative Resulting Agency Comment Lab Testing performed at: [address] [address] [address] [place] [id number] Gloria Smith MD LAB - CHEMISTRY MARII ARAUJO [facility] INSURANCE BILL [address] [place] [address] * ERYTHROCYTE SEDIMENTATION RATE (03/06/2019 11:34 AM LITHOGRAPHIC PROOFER) Erythrocyte Sedimentation Rate Westergren 6 0 - 20 MM/HR [facility] INSURANCE BILL Blood BLOOD SPECIMEN / Unknown 03/06/2019 11:34 AM LITHOGRAPHIC PROOFER 03/06/2019 Narrative Resulting Agency Comment Lab Testing performed at: [facility] [address] [address] ?? [facility] [id number] Gloria Smith MD LAB - HEMATOLOGY ORD ERABLES [facility] INSURANCE BILL [address] [place] [address] * (ABNORMAL) COMPREHENSIVE METABOLIC PANEL (03/06/2019 11:34 AM LITHOGRAPHIC PROOFER) Glucose 81 70 - 105 mg/dL [facility] [...] BLOOD SPECIMEN / Unknown 03/06/2019 11:34 AM LITHOGRAPHIC PROOFER 03/06/2019 Narrative Resulting Agency Comment Lab Testing performed at: [facility] [id number] [place], [place] [address]c[address] [place] ?? [place] [id number] Gloria Smith MD LAB - CHEMISTRY MARII ARAUJO [facility] INSURANCE BILL [address] [place] [address] * (ABNORMAL) CBC WITH DIFFERENTIAL (03/06/2019 11:34 AM LITHOGRAPHIC PROOFER) WBC 9.4 4.4 - 10.7 x10E9/L [facility] [...] x10E9/L [facility] INSURANCE BILL Comment:MPV [place] BLOOD ([facility]) 11.0 fl 9.4-12.9 Granulocytes % 64.9 44.0 [...] BLOOD SPECIMEN / Unknown 03/06/2019 11:34 AM LITHOGRAPHIC PROOFER 03/06/2019 Narrative Resulting Agency Comment Lab Testing performed at: [facility] [address] [facility] ?? [facility] [phone] Gloria Smith MD LAB - HEMATOLOGY ORD ERABLES [facility] INSURANCE BILL [address] [place] [address] documented in this encounter Visit Diagnoses Diagnosis Rheumatoid arthritis of multiple sites with negative rheumatoid factor (HCC)- Primary documented in this encounter Care Teams Public Transit Trolley Driver Relationship Specialty Start Date End Date Tomas Hyman MD [address] [place] [address] PCP - General Family Medicine 09/05/18 Isidro Heredia MD Rheumatology 02/09/11 documented as of this encounter
--- OUTSIDE RECORDS SUMMARY | 2024-05-03 09:00 | XMS_ITS | Encounter Summary ---
Author Organization [facility] Address [address] [facility] [place] [address] Care Team Providers Care Carbon Paste Mixer Operator Name Role Phone Isidro Heredia MD Unavailable [phone] Tomas Hyman MD Primary Care Provider Reason for Visit * Treatment (Routine) - Closed Specialty Diagnoses / Procedures Referred By Lawrence shah Referred To Contact Infusion Therapy Nurse Diagnoses Rheumatoid arthritis without rheumatoid factor, multiple sites (HCC) Procedures [place] INFLIXIMAB INJECTION Isidro Heredia MD [address] [place] [address] [address] Referral ID Status Reason Start Date Expiration Date Visits Re quested Visits Authorized [id number] Closed 05/13/2018 04/29/2019 1 12 Encounter Details Date Type Department Care Team (Late st Contact Info) Description 01/24/2019 12:32 PM CDT - 01/24/2019 11:59 PM CDT Hospital Encounter [facility] Medical [facility] - Rheumatology [address] [place] [address] Gloria Smith MD [address] [place] [phone] Discharge Disposition: Home or Self Care [...] Sahu RN - 01/24/2019 1:18 PM CDT [facility] Rhe[facility] Post Infusion instructions [...] Sunday through 01-02 call the office at [phone] After hours or on the weekend call the exchange at [phone] If you have had lab work done [...] 1 (one) tablet by mouth at bedtime ldyroprlznd-nxwl-myc ysorb, PF, 0.5-1-0.5 % SOLN Instill 1 [...] - 01/24/2019 1:21 PM CDT JOSE Deng [id number] 01/24/2019 Diagnosis: Rheumatoid arthritis without rheumatoid factor, [...] Contact Info) Description 06/03/2024 1:00 PM OIL AND GAS FIELD TECHNICIAN Appointment [facility] - Rheumatology [address] [place] [address] [phone] 06/03/2024 2:00 PM OIL AND GAS FIELD TECHNICIAN Office Visit [facility] - Rheumatology [address] [place] [address] Gloria Smith MD [address] [place] [phone] documented as of this encounter Visit [...] mL/hr documented in this encounter Care Teams Carbon Paste Mixer Operator Relationship Specialty Start Date End Date Tomas Hyman MD [address] [facility] [address] [place] [phone] PCP - General Family Medicine 09/05/18 Isidro Heredia MD Rheumatology 02/09/11 documented as of this encounter
--- OUTSIDE RECORDS SUMMARY | 2024-05-03 09:00 | XMS_ITS | Encounter Summary ---
Author Organization [facility] Address [address] [facility] [place] [address] Care Team Providers Care Performance Improvement Specialist Name Role Phone Isidro Heredia MD Unavailable [phone] Tomas Hyman MD Primary Care Provider [phone] Encounter Details Date Type Department Care Team (Late Contact Info) Description 11/08/2018 Orders Only [facility] - Rheumatology [address] [place] [address] Isidro Heredia MD [address] [place] [address] Encounter for long-term (current) use of [...] (Late Contact Info) Description 06/03/2024 1:00 PM SEATER ASSEMBLER Appointment [facility] - Rheumatology [address] [place] [address] 06/03/2024 2:00 PM SEATER ASSEMBLER Office Visit [facility] Rheumatology [address] [place] [address] Gloria Smith MD [address] [place], [place] [address], [place] [address] documented as of this encounter Visit Diagnoses Diagnosis Encounter for long-term (current) use of medications Encounter for long-term (current) use of other medications documented in this encounter Care Teams Performance Improvement Specialist Relationship Specialty Start Date End Date Tomas Hyman MD [address] [facility] [address] [place] [address] PCP - General Family Medicine 09/05/18 Isidro Heredia MD Rheumatology 02/09/11 documented as of this encounter
--- OUTSIDE RECORDS SUMMARY | 2024-05-03 09:00 | XMS_ITS | Encounter Summary ---
Author Organization [facility] Address [address] [facility] [place] [address] Care Team Providers Care Chemic Mangler Name Role Phone Isidro Heredia MD Unavailable [phone] Tomas Hyman MD Primary Care Provider [phone] Reason for Visit * Reason Onset Date Comments MEDICATION REFILL 10/24/2018 Encounter Details Date Type Department Care Team (Late Contact Info) Description 10/24/2018 Refill [facility] - Rheumatology [address] [place] [address] Isidro Heredia MD [address] [place] [address] MEDICATION REFILL Social History Tobacco Use [...] (Late Contact Info) Description 06/03/2024 1:00 PM SCOOPER Appointment [facility] - Rheumatology [address] [place] [address] 06/03/2024 2:00 PM SCOOPER Office Visit [facility] - Rheumatology [address] [place] [address] Gloria Smith MD [address] [place] [address] documented as of this encounter Visit Diagnoses Not on filedocumented in this encounter Care Teams Chemic Mangler Relationship Specialty Start Date End Date Tomas Hyman MD [address] [place] [address] PCP - General Family Medicine 09/05/18 Isidro Heredia MD Rheumatology 02/09/11 documented as of this encounter
--- OUTSIDE RECORDS SUMMARY | 2024-05-03 09:00 | XMS_ITS | Encounter Summary ---
Author Organization [facility] Address [address] [place] [address] Care Team Providers Care Unindentured Apprentice Name Role Phone Isidro Heredia MD Unavailable [phone] Tomas Hyman MD Primary Care Provider [phone] Reason for Visit * Reason Comments Establish Care pre lavon Encounter Details Date Type Department Care Team (Late st Contact Info) Description 01/08/2019 1:40 PM CDT Office Visit [facility] - Rheumatology [address] [place] [address] Gloria Smith MD [address] [place] [phone] Rheumatoid arthritis of multiple sites with [...] st Contact Info) Description 06/03/2024 1:00 PM FINISH MIXER Appointment [facility] - Rheumatology [address] [place] [address] [phone] 06/03/2024 2:00 PM FINISH MIXER Office Visit [facility] - Rheumatology [address] [place] [address] Gloria Smith MD [address] [place] [phone] documented as of this encounter Visit Diagnoses Diagnosis Rheumatoid arthritis of multiple sites with negative rheumatoid factor (HCC)- Primary documented in this encounter Care Teams Unindentured Apprentice Relationship Specialty Start Date End Date Tomas Hyman MD [address] [place] [address] PCP - General Family Medicine 09/05/18 Isidro Heredia MD Rheumatology 02/09/11 documented as of this encounter
--- OUTSIDE RECORDS SUMMARY | 2024-05-03 09:00 | XMS_ITS | Encounter Summary ---
Author Organization [facility] Address [address] [facility] [place] [address] Care Team Providers Care Director Organizational Name Role Phone Isidro Heredia MD Unavailable [phone] Tomas Hyman MD Primary Care Provider [phone] Encounter Details Date Type Department Care Team (Late Contact Info) Description 05/09/2019 Orders Only [facility] - Rheumatology [address] [place] [address] lGoria Smith MD [facility] [place] [address] Social History Tobacco Use Types [...] (Late Contact Info) Description 06/03/2024 1:00 PM QUALIFICATION ENGINEER Appointment [facility] - Rheumatology [address] [place] [address] 06/03/2024 2:00 PM QUALIFICATION ENGINEER Office Visit [facility] - Rheumatology [address] [place] [address] Gloria Smith MD [facility] [place] [address] documented as of this encounter Visit Diagnoses Not on filedocumented in this encounter Care Teams Director Organizational Relationship Specialty Start Date End Date Tomas Hyman MD [address] [place] [address] PCP - General Family Medicine 09/05/18 Isidro Heredia MD Rheumatology 02/09/11 documented as of this encounter
--- OUTSIDE RECORDS SUMMARY | 2024-05-03 09:00 | XMS_ITS | Encounter Summary ---
Author Organization [facility] Address [address] [facility] [place] [address] Care Team Providers Care Addiction Psychiatrist Name Role Phone Isidro Heredia MD Unavailable [phone] Tomas Hyman MD Primary Care Provider Reason for Visit * Reason Comments Arthritis follow up Encounter Details Date Type Department Care Team (Late st Contact Info) Description 04/18/2019 1:00 PM SENIOR CATEGORY MANAGER Office Visit [facility] - Rheumatology [address] [place] [address] Gloria Smith MD [address] [place] [phone] Osteoporosis, unspecified osteoporosis type, unspecified pathological [...] Comments Blood Pressure 106/72 04/18/2019 12:38 PM SENIOR CATEGORY MANAGER Pulse 94 04/18/2019 12:38 PM SENIOR CATEGORY MANAGER Temperature 37.2 ??C (98.9 ??F) 04/18/2019 12:[address] Respiratory Rate - - Oxygen Saturation - - Inhaled Oxygen Concentration - - Weight - - Height - - Body Mass Index - - documented in this encounter Patient Instructions * Patient Instructions* Gloria Smith MD - 04/18/2019 1:02 PM SENIOR CATEGORY MANAGER Decreased methotrexate to 4 tablets per week. Continue folic acid 1mg daily. Decrease prednisone to 5mg (1/2 tablet) twice a day. Bone density scan. Stop Fosamax after completing the 90 day refill. Switch Flexeril to tizanidine as muscle relaxant for neck pain. OR CATEGORY MANAGER documented in this encounter Progress Notes [...] pain - Weaning percocet from Dr. Heredia. OR CATEGORY MANAGER documented in this encounter Plan of Treatment Upcoming Encounters Date Type Department Care Team (Late st Contact Info) Description 06/03/2024 1:00 PM SENIOR CATEGORY MANAGER Appointment [facility] - Rheumatology [address] [place] [address] 06/03/2024 2:00 PM SENIOR CATEGORY MANAGER Office Visit [facility] - Rheumatology [address] [place] [address] [address] [facility] [place] [address] documented as of this encounter Results * XR CERVICAL SPINE 2 OR 3VW (04/18/2019 1:48 PM SENIOR CATEGORY MANAGER) Anatomical Region Laterality Modality Spine Radiographic Reena ging 04/18/2019 1:56 PM SENIOR CATEGORY MANAGER Impressions 04/18/2019 1:59 PM SENIOR CATEGORY MANAGER There is moderate disc space narrowing at C5-6 and C6-7 with osteophytosis at C5-6. This could be further evaluated by MRI if indicated. Reading Radiologist: Cristina Avalos MD on 04/18/2019 at 1:59 PM Narrative 04/18/2019 1:59 PM SENIOR CATEGORY MANAGER Cervical spine AP and lateral INDICATION: Neck [...] (HCC) documented in this encounter Care Teams Addiction Psychiatrist Relationship Specialty Start Date End Date Tomas Hyman MD [address] [place] [address] PCP - General Family Medicine 09/05/18 Isidro Heredia MD Rheumatology 02/09/11 documented as of this encounter
--- OUTSIDE RECORDS SUMMARY | 2024-05-03 09:00 | XMS_ITS | Encounter Summary ---
Author Organization [facility] Address [address] [place] [address] Care Team Providers Care Financial Aids Officer Name Role Phone Isidro Heredia MD Unavailable [phone] Tomas Hyman MD Primary Care Provider [phone] Encounter Details Date Type Department Care Team (Late Contact Info) Description 10/24/2018 Orders Only [facility] - Rheumatology [address] [place] [address] Isidro Heredia MD [address] [place] [address] Social History Tobacco Use Types Packs/Day [...] (Late Contact Info) Description 06/03/2024 1:00 PM SANDWICH WRAPPER Appointment [facility] - Rheumatology [address] [place] [address] 06/03/2024 2:00 PM SANDWICH WRAPPER Office Visit [facility] - Rheumatology [address] [place] [address] Gloria Smith MD [address] [place] [phone] documented as of this encounter Procedures Procedure [...] Resulting Agency Comment Lab Testing performed at: [facility] [address] ??Formerly [facility] [phone] Isidro Heredia MD LAB - HEMATOLOGY OR DERABLES [facility] INSURANCE BILL [address] [place] [address] * COMPREHENSIVE METABOLIC PANEL (10/24/2018 10:00 AM [...] Agency Comment Lab Testing performed at: [facility] [address] [facility] ??Formerly [facility] [phone] Isidro Heredia MD LAB - CHEMISTRY ORD ERABLES [facility] INSURANCE BILL [address] [place] [address] documented in this encounter Visit Diagnoses Not on filedocumented in this encounter Care Teams Financial Aids Officer Relationship Specialty Start Date End Date Tomas Hyman MD [address] [facility] [address] [place] [address] PCP - General Family Medicine 09/05/18 Isidro Heredia MD Rheumatology 02/09/11 documented as of this encounter
--- OUTSIDE RECORDS SUMMARY | 2024-05-03 09:00 | XMS_ITS | Encounter Summary ---
Author Organization [facility] Address [address] [facility] [place] [address] Care Team Providers Care Finisher Screwdown Name Role Phone Isidro Heredia MD Unavailable [phone] Tomas Hyman MD Primary Care Provider [phone] Reason for Visit * Reason Onset Date Comments Appointment 01/02/2019 Encounter Details Date Type Department Care Team (Late st Contact Info) Description 01/02/[address] [facility] Medical [facility] - Rheumatology [address] [place] [address] Isidro Heredia MD [address] [place] [address] Appointment Social History Tobacco Use Types [...] encounter Miscellaneous Notes * Telephone Encounter - aCrey Loza - 01/02/2019 1:38 PM CDT Called [...] st Contact Info) Description 06/03/2024 1:00 PM ELECTRIC MOTOR ASSEMBLER AND TESTER Appointment [facility] - Rheumatology [address] [place] [address] [phone] 06/03/2024 2:00 PM ELECTRIC MOTOR ASSEMBLER AND TESTER Office Visit [facility] - Rheumatology [address] [place] [address] Gloria Smith MD [address] [place] [phone] documented as of this encounter Visit Diagnoses Not on filedocumented in this encounter Care Teams Finisher Screwdown Relationship Specialty Start Date End Date Tomas Hyman MD [address] [facility] [address] [place] [address] PCP - General Family Medicine 09/05/18 Isidro Heredia MD Rheumatology 02/09/11 documented as of this encounter
--- OUTSIDE RECORDS SUMMARY | 2024-05-03 09:00 | XMS_ITS | Encounter Summary ---
Author Organization [facility] Address [address] [facility] [place] [address] Care Team Providers Care Pre K Lead Teacher Name Role Phone Isidro Heredia MD Unavailable Tomas Hyman MD Primary Care Provider [phone] Reason for Visit * Reason Onset Date Comments MEDICATION REFILL 07/13/2019 Encounter Details Date Type Department Care Team (Late Contact Info) Description 07/13/2019 Refill [facility] Medical [facility] - Rheumatology [address] [place] [address] [phone] Isidro Heredia MD [address] [place] [address] MEDICATION REFILL Social History Tobacco Use [...] (Late Contact Info) Description 06/03/2024 1:00 PM CLINICAL DOCUMENTATION MANAGER Appointment [facility] - Rheumatology [address] [place] [address] [phone] 06/03/2024 2:00 PM CLINICAL DOCUMENTATION MANAGER Office Visit [facility] - Rheumatology [address] [place] [address] [phone] Gloria Smith MD [address] [place] [phone] documented as of this encounter Visit Diagnoses Not on filedocumented in this encounter Care Teams Pre K Lead Teacher Relationship Specialty Start Date End Date Tomas Hyman MD [address] [facility] [address] [place] [address] PCP - General Family Medicine 09/05/18 Isidro Heredia MD Rheumatology 02/09/11 documented as of this encounter
--- OUTSIDE RECORDS SUMMARY | 2024-05-03 09:00 | XMS_ITS | Encounter Summary ---
Author Organization [facility] Address [address] [place] [address] Care Team Providers Care Business Development Sales Executive Name Role Phone Isidro Heredia MD Unavailable [phone] Tomas Hyman MD Primary Care Provider [phone] Reason for Visit * Reason Onset Date Comments MEDICATION REFILL 04/14/2019 Encounter Details Date Type Department Care Team (Late st Contact Info) Description 04/14/2019 Refill [facility] - Rheumatology [address] [place] [address] Gloria Smith MD [address] [place] [phone] MEDICATION REFILL Social History Tobacco Use [...] (Late Contact Info) Description 06/03/2024 1:[address]ICE Appointment [facility] - Rheumatology [address] [place] [address] 06/03/2024 2:[address] JUSTICE Office Visit [facility] - Rheumatology [address] [place] [address] Gloria Smith MD [address] [place] [phone] documented as of this encounter Visit Diagnoses Not on filedocumented in this encounter Care Teams Business Development Sales Executive Relationship Specialty Start Date End Date Tomas Hyman MD [address] [place] [address] PCP - General Family Medicine 09/05/18 Isidro Heredia MD Rheumatology 02/09/11 documented as of this encounter
--- OUTSIDE RECORDS SUMMARY | 2024-05-03 09:00 | XMS_ITS | Encounter Summary ---
Author Organization [facility] Address [address] [facility] [place] [address] Care Team Providers Care Felt Machine Mechanic Name Role Phone Isidro Heredia MD Unavailable [phone] Tomas Hyman MD Primary Care Provider [phone] Reason for Visit * Reason Onset Date Comments Infusion 02/28/2019 Encounter Details Date Type Department Care Team (Late st Contact Info) Description 02/28/2019 Telephone [facility] Medical [facility] - Rheumatology [address] [place] [address] Gloria Smith MD [address] [place] [phone] Infusion Social History Tobacco Use Types [...] Contact Info) Description 06/03/2024 1:00 PM PRODUCTION STAGE MANAGER Appointment [facility] - Rheumatology [address] [place] [address] [phone] 06/03/2024 2:00 PM PRODUCTION STAGE MANAGER Office Visit [facility] - Rheumatology [address] [place] [address] [phone] Gloria Smith MD [address] [place] [phone] documented as of this encounter Visit Diagnoses Not on filedocumented in this encounter Care Teams Felt Machine Mechanic Relationship Specialty Start Date End Date Tomas Hyman MD [address] [place] [address] PCP - General Family Medicine 09/05/18 Isidro Heredia MD Rheumatology 02/09/11 documented as of this encounter
--- OUTSIDE RECORDS SUMMARY | 2024-05-03 09:00 | XMS_ITS | Encounter Summary ---
Author Organization [facility] Address [address] [place] [address] Care Team Providers Care Nanosystems Engineer Name Role Phone Isidro Heredia MD Unavailable [phone] Tomas Hyman MD Primary Care Provider [phone] Encounter Details Date Type Department Care Team (Late Contact Info) Description 03/03/2019 Orders Only [facility] - Rheumatology [address] [place] [address] Gloria [facility] [place] [address] Social History Tobacco Use Types [...] (Late Contact Info) Description 06/03/2024 1:00 PM FOIL SPINNER Appointment [facility] - Rheumatology [address] [place] [address] 06/03/2024 2:00 PM FOIL SPINNER Office Visit [facility] - Rheumatology [address] [place] [address] Gloria Smith MD [facility] [place] [place] [address] documented as of this encounter Visit Diagnoses Not on filedocumented in this encounter Care Teams Nanosystems Engineer Relationship Specialty Start Date End Date Tomas Hyman MD [address] [place] [address] PCP - General Family Medicine 09/05/18 Isidro Heredia MD Rheumatology 02/09/11 documented as of this encounter
--- OUTSIDE RECORDS SUMMARY | 2024-05-03 09:00 | XMS_ITS | Encounter Summary ---
Author Organization [facility] Address [address] [facility] [place] [address] Care Team Providers Care Curator Medical Museum Name Role Phone Isidro Heredia MD Unavailable [phone] Tomas Hyman MD Primary Care Provider Encounter Details Date Type Department Care Team (Latest Contact Info) Description 10/28/2018 11:55 AM CDT - 10/28/2018 11:59 PM CDT Hospital Encounter [facility] Pain Care [address] [place] [address] [place] [address] [place] [address] Discharge Disposition: Home or Self Care Social [...] Pond RN - 10/28/2018 12:30 PM CDT [facility] Procedure Center Pain Discharge [...] headache, or any other problems, please call [phone] or after hours call Dr. Mirza at [phone] and tell them your physician's name. The exchange will alert the physician signal intelligence/electronic warfare. If sedation is given: No sedation given. For Your Next Visit: No additional instructions. Other Instructions: May remove band-aid in 12 Hours. Return in 2 weeks for follow up. documented in this encounter Medications at Time of Discharge Medication Sig Dispensed Refills Start Date End Date atorvastatin (LIPITOR) 40 MG tablet Take 1 (one) tablet by mouth at bedtime gmfbhadakwi-rurs-trj ysorb, PF, 0.5-1-0.5 % SOLN Instill 1 [...] ??? buPROPion (WELLBUTRIN) 100 MG tablet ??? dibdtjxnujj-yuxs-bcducvog, PF, (REFRESH OPTIVE ADVANCED PF) 0.5-1-0.5 % SOLN ??? carvedilol (COREG) 12.5 MG tablet ??? ferrous sulfate 325 (65 FE) MG tablet ??? gabapentin (NEURONTIN) 300 MG capsule ??? Zmzjlwkwrtz-Yqxdwjint-Lxx C-Mn (GLUCOSAMINE CHONDR 1500 COMPLX PO) ??? [...] identified, and marked by Dr. Mirza. Responsible driver sales is not needed due to the patient [...] st Contact Info) Description 06/03/2024 1:00 PM MIRROR MACHINE FEEDER Appointment [facility] - Rheumatology [address] [place] [address] [phone] 06/03/2024 2:00 PM MIRROR MACHINE FEEDER Office Visit [facility] - Rheumatology [address] [place] [address] [phone] Gloria Smith MD [address] [place] [phone] documented as of this encounter Procedures Procedure [...] buPROPion (WELLBUTRIN) 100 MG tablet ? ? ryihgzdbzdd-uvkh-wixvcctt, PF, (REFRESH OPTIVE ADVANCED PF) 0.5-1-0.5 % SOLN ? ? carvedilol (COREG) 12.5 MG tablet ? ? ferrous sulfate 325 (65 FE) MG tablet ? ? gabapentin (NEURONTIN) 300 MG capsule ? ? Oltmjuppkpg-Djhnoasxx-Wdz C-Mn (GLUCOSAMINE CHONDR 1500 COMPLX PO) ? [...] identified, and marked by Dr. Mirza. ??Responsible driver sales is not needed due to the patient [...] mg documented in this encounter Care Teams Curator Medical Museum Relationship Specialty Start Date End Date Tomas Hyman MD [address] [facility] [address] [place] [address] PCP - General Family Medicine 09/05/18 Isidro Heredia MD Rheumatology 02/09/11 documented as of this encounter
--- OUTSIDE RECORDS SUMMARY | 2024-05-03 09:00 | XMS_ITS | Encounter Summary ---
Author Organization [facility] Address [address] [facility] [place] [address] Care Team Providers Care Historic Clothing And Costume Maker Name Role Phone Isidro Heredia MD Unavailable [phone] Tomas Hyman MD Primary Care Provider [phone] Encounter Details Date Type Department Care Team (Late st Contact Info) Description 04/18/2019 1:33 PM EMR ANALYST - 04/18/2019 11:59 PM [facility] Hospital Encounter [facility] - Medical Imaging [address] [place] [address] Gloria Smith MD [address] [place] [address] Discharge Disposition: Home or Self [...] 1 (one) tablet by mouth at bedtime soxwuquwoij-uwhl-fxy ysorb, PF, 0.5-1-0.5 % SOLN Instill 1 [...] in the neck. Continue the same medications. ANALYST documented in this encounter Plan of Treatment Upcoming Encounters Date Type Department Care Team (Late st Contact Info) Description 06/03/2024 1:00 PM EMR ANALYST Appointment [facility] - Rheumatology [address] [place] [address] 06/03/2024 2:00 PM EMR ANALYST Office Visit [facility] - Rheumatology [address] [place] [address] Gloria Smith MD [address] [place] [phone] documented as of this encounter Procedures Procedure Name Priority Date/Time Associated Diagnosis Comments XR CERVICAL SPINE 2 OR 3VW Routine 04/18/2019 1:48 PM EMR ANALYST Osteoporosis, unspecified osteoporosis type, unspecified pathological fracture presence Rheumatoid arthritis of multiple sites with negative rheumatoid factor (HCC) documented in this encounter Results * XR CERVICAL SPINE 2 OR 3VW (04/18/2019 1:48 PM EMR ANALYST) Anatomical Region Laterality Modality Spine Radiographic Reena ging 04/18/2019 1:56 PM EMR ANALYST Impressions 04/18/2019 1:59 PM EMR ANALYST There is moderate disc space narrowing at C5-6 and C6-7 with osteophytosis at C5-6. This could be further evaluated by MRI if indicated. Reading Radiologist: Cristina Avalos MD on 04/18/2019 at 1:59 PM Narrative 04/18/2019 1:59 PM EMR ANALYST Cervical spine AP and lateral INDICATION: Neck [...] (HCC) documented in this encounter Care Teams Historic Clothing And Costume Maker Relationship Specialty Start Date End Date Tomas Hyman MD [address] [place] [address] PCP - General Family Medicine 09/05/18 Isidro Hreedia MD Rheumatology 02/09/11 documented as of this encounter
--- OUTSIDE RECORDS SUMMARY | 2024-05-03 09:00 | XMS_ITS | Encounter Summary ---
Author Organization [facility] Address [address] [facility] [place] [address] Care Team Providers Care Nursing Program Manager Name Role Phone Isidro Heredia MD Unavailable [phone] Tomas Hyman MD Primary Care Provider [phone] Encounter Details Date Type Department Care Team (Late Contact Info) Description 01/19/2019 Orders Only [facility] - Rheumatology [address] [place] [address] Gloria Smith [facility] [place] [address] Social History Tobacco Use Types [...] (Late Contact Info) Description 06/03/2024 1:00 PM GSA COORDINATOR Appointment [facility] - Rheumatology [address] [place] [address] 06/03/2024 2:00 PM GSA COORDINATOR Office Visit [facility] - Rheumatology [address] [place] [address] Gloria Smith MD [facility] [place] [address] documented as of this encounter Visit Diagnoses Not on filedocumented in this encounter Care Teams Nursing Program Manager Relationship Specialty Start Date End Date Tomas Hyman MD [address] [place] [address] PCP - General Family Medicine 09/05/18 Isidro Heredia MD Rheumatology 02/09/11 documented as of this encounter
--- OUTSIDE RECORDS SUMMARY | 2024-05-03 09:00 | XMS_ITS | Encounter Summary ---
Author Organization [facility] Address [address] [facility] [address] Care Team Providers Care Skein Spooler Name Role Phone Isidro Heredia MD Unavailable [phone] Tomas Hyman MD Primary Care Provider Reason for Visit * Reason Onset Date Comments MEDICATION REFILL 04/14/2019 MEDICATION REFILL 11/12/2019 Encounter Details Date Type Department Care Team (Late st Contact Info) Description 04/14/2019 Refill [facility] Medical [facility] - Rheumatology [address] [place] [address] Isidro Heredia MD [address] [place] [address] [phone] MEDICATION REFILL; MEDICATION REFILL Social History Tobacco [...] Peters - 04/15/2019 8:33 AM CST [place]:01/08/19 FINISHER documented in this encounter Plan of Treatment Upcoming Encounters Date Type Department Care Team (Late st Contact Info) Description 06/03/2024 1:00 PM YARN FINISHER Appointment [facility] - Rheumatology [address] [place] [address] [phone] 06/03/2024 2:00 PM YARN FINISHER Office Visit [facility] - Rheumatology [address] [place] [address] [phone] Gloria Smith MD [address] [place] [phone] documented as of this encounter Visit Diagnoses Not on filedocumented in this encounter Care Teams Skein Spooler Relationship Specialty Start Date End Date Tomas Hyman MD [address] [facility] [address] [place] [address] PCP - General Family Medicine 09/05/18 Isidro Heredia MD Rheumatology 02/09/11 documented as of this encounter
--- OUTSIDE RECORDS SUMMARY | 2024-05-03 09:00 | XMS_ITS | Encounter Summary ---
Author Organization [facility] Address [address] [facility] [place] [address] Care Team Providers Care Glass Ribbon Machine Operator Assistant Name Role Phone Isidro Heredia MD Unavailable [phone] Tomas Hyman MD Primary Care Provider [phone] Reason for Visit * Treatment (Routine) - Closed Specialty Diagnoses / Procedures Referred By Lawrence t Referred To Contact Infusion Therapy Nurse Diagnoses Rheumatoid arthritis without rheumatoid factor, multiple sites (HCC) Procedures [place] INFLIXIMAB INJECTION Isidro Heredia MD [address] [place] [address] [phone] Referral ID Status Reason Start Date Expiration Date Visits Re quested Visits Authorized [id number] Closed 05/13/2018 04/29/2019 1 12 Encounter Details Date Type Department Care Team (Late st Contact Info) Description 03/06/2019 8:54 AM OPERATING ROOM ASSISTANT - 03/06/2019 11:59 PM OPERATING ROOM ASSISTANT Hospital Encounter [facility] Medical [facility] - Rheumatology [address] [place] [address] Gloria Smith MD [address] [place] [phone] Discharge Disposition: Home or Self Care [...] Comments Blood Pressure 141/82 03/06/2019 9:14 AM OPERATING ROOM ASSISTANT Pulse 88 03/06/2019 9:14 AM OPERATING ROOM ASSISTANT Temperature 36.8 ??C (98.2 ??F) 03/06/2019 9:14 AM CS T Respiratory Rate 17 03/06/2019 9:14 AM OPERATING ROOM ASSISTANT Oxygen Saturation - - Inhaled Oxygen Concentration - - Weight 112 kg (247 lb) 03/06/2019 9:14 AM OPERATING ROOM ASSISTANT Height - - Body Mass Index 35.44 09/05/2018 10:54 AM CDT documented in this encounter Discharge Instructions * Discharge Instructions* Jody Sahu RN - 03/06/2019 9:18 AM OPERATING ROOM ASSISTANT [place] Rheumatology Post Infusion instructions You have [...] Sunday through 01-02 call the office at [phone] After hours or on the weekend call the exchange at [phone] If you have had lab work done [...] Hospital as your provider. Jody Sahu RN ATING ROOM ASSISTANT documented in this encounter Medications at Time of Discharge Medication Sig Dispensed Refills Start Date End Date atorvastatin (LIPITOR) 40 MG tablet Take 1 (one) tablet by mouth at bedtime ykfvqehvgpl-diha-zwr ysorb, PF, 0.5-1-0.5 % SOLN Instill 1 [...] 03/06/2019 9:28 AM CST JOSE Allred Deng [id number] 03/06/2019 Diagnosis: Rheumatoid arthritis without rheumatoid factor, multiple sites [M06.09]. Pt denies symptoms of infection or antibiotic use, no open wounds, or recent surgery, or plans for surgery in the next couple of weeks. Pt is aware that we use the 0-10 pain scale to assess discomfort. 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 6 weeks Jody Sahu RN ATING ROOM ASSISTANT documented in this encounter Plan of Treatment Upcoming Encounters Date Type Department Care Team (Late st Contact Info) Description 06/03/2024 1:00 PM OPERATING ROOM ASSISTANT Appointment [facility] - Rheumatology [address] [place] [address] [phone] 06/03/2024 2:00 PM OPERATING ROOM ASSISTANT Office Visit [facility] - Rheumatology [address] [place] [address] Gloria Smith MD [address] [place] [phone] documented as of this encounter Visit Diagnoses [...] filter. $ New Bag/Syringe 03/06/2019 9:23 AM OPERATING ROOM ASSISTANT 400 mg 135 mL/hr documented in this encounter Care Teams Glass Ribbon Machine Operator Assistant Relationship Specialty Start Date End Date Tomas Hyman MD [address] [facility] [address] [place] [address] PCP - General Family Medicine 09/05/18 Isidro Heredia MD Rheumatology 02/09/11 documented as of this encounter
--- OUTSIDE RECORDS SUMMARY | 2024-05-03 09:00 | XMS_ITS | Encounter Summary ---
Author Organization [facility] Address [address] [place] [address] Care Team Providers Care Vehicle Refinisher Name Role Phone Isidro Heredia MD Unavailable [phone] Tomas Hyman MD Primary Care Provider [phone] Encounter Details Date Type Department Care Team (Latest Contact Info) Description 10/28/2018 11:53 AM CDT - 10/28/2018 11:54 AM T Hospital Encounter [facility] [address] [place] [address] [place] [address] [place] [address] Discharge Disposition: Home or Self Care Social [...] 1 (one) tablet by mouth at bedtime zitvanyqvix-vypr-qdx ysorb, PF, 0.5-1-0.5 % SOLN Instill 1 [...] Contact Info) Description 06/03/2024 1:00 PM WAREHOUSE INSULATION WORKER Appointment [facility] - Rheumatology [address] [place] [address] 06/03/2024 2:00 PM WAREHOUSE INSULATION WORKER Office Visit [facility] - Rheumatology [address] [place] [address] Gloria Smith MD [address] [place] [phone] documented as of this encounter Visit Diagnoses Not on filedocumented in this encounter Care Teams Vehicle Refinisher Relationship Specialty Start Date End Date Tomas Hyman MD [address] [facility] [address] [place] [address] PCP - General Family Medicine 09/05/18 Isidro Heredia MD Rheumatology 02/09/11 documented as of this encounter
--- OUTSIDE RECORDS SUMMARY | 2024-05-03 09:00 | XMS_ITS | Encounter Summary ---
Author Organization [facility] Address [address] [facility] [place] [address] Care Team Providers Care Director Of Financial Planning Name Role Phone Isidro Heredia MD Unavailable [phone] Tomas Hyman MD Primary Care Provider [phone] Reason for Visit * Reason Comments Arthritis follow up Encounter Details Date Type Department Care Team (Late st Contact Info) Description 12/12/2018 10:45 AM CDT Office Visit [facility] - Rheumatology [address] [place] [address] Isidro Heredia MD [address] [place] [address] Abnormal LFTs (Primary Dx); Chronic pain [...] 100 mg by mouth once daily ??? bdyqnitfebx-iwdt-hvjtzmvq, PF, (REFRESH OPTIVE ADVANCED PF) 0.5-1-0.5 % [...] 2 times daily 180 capsule 3 ??? Ywuvbczsxnz-Jjeadanuf-Cjt C-Mn (GLUCOSAMINE CHONDR 1500 COMPLX PO) Take [...] st Contact Info) Description 06/03/2024 1:00 PM CHORUS DANCER Appointment [facility] - Rheumatology [address] [place] [address] [phone] 06/03/2024 2:00 PM CHORUS DANCER Office Visit [facility] - Rheumatology [address] [place] [address] Gloria Smith MD [address] [place] [phone] documented as of this encounter Visit Diagnoses Diagnosis Abnormal LFTs- Primary Other abnormal blood chemistry Chronic pain syndrome Rheumatoid arthritis 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
--- OUTSIDE RECORDS SUMMARY | 2024-05-03 09:01 | XMS_ITS | Encounter Summary ---
Author Organization [facility] Address [address] [facility] [place] [address] Care Team Providers Care Conservation Enforcement Officer Name Role Phone Isidro Heredia MD Unavailable [phone] Tomas Hyman MD Primary Care Provider [phone] Reason for Visit * Treatment (Routine) - Closed Specialty Diagnoses / Procedures Referred By Lawrence shah Referred To Contact Infusion Therapy Nurse Diagnoses Rheumatoid arthritis without rheumatoid factor, multiple sites (HCC) Procedures [place] INFLIXIMAB INJECTION Isidro Heredia MD [address] [place] [address] [address] Referral ID Status Reason Start Date Expiration Date Visits Re quested Visits Authorized [id number] Closed 02/28/2018 04/29/2018 1 6 Encounter Details Date Type Department Care Team (Late st Contact Info) Description 03/27/2018 9:53 AM DRILLING CONTRACTOR - 03/27/2018 11:59 PM DRILLING CONTRACTOR Hospital Encounter [facility] Medical [facility] - Rheumatology [address] [place] [address] Isidro Heredia MD [address] [place] [address] Discharge Disposition: Home or Self [...] Comments Blood Pressure 152/68 03/27/2018 1:00 PM DRILLING CONTRACTOR Pulse 76 03/27/2018 1:00 PM DRILLING CONTRACTOR Temperature 36.6 ??C (97.9 ??F) 03/27/2018 10:[address] Respiratory Rate 18 03/27/2018 1:00 PM DRILLING CONTRACTOR Oxygen Saturation - - Inhaled Oxygen Concentration - - Weight 104.3 kg (230 lb) 03/27/2018 10:11 AM DRILLING CONTRACTOR Height - - Body Mass Index 33 01/11/2016 3:12 PM CDT documented in this encounter Discharge Instructions * Discharge Instructions* Jody Sahu RN - 03/27/2018 10:25 AM DRILLING CONTRACTOR [place] Rheumatology Post Infusion instructions You have [...] through Sunday 9-5 call the office at [phone] After hours or on the weekend call the exchange at [phone] If you have had lab work done [...] [facility] as your provider. Jody Sahu RN LING CONTRACTOR documented in this encounter Medications at Time [...] 03/27/2018 10:27 AM CST INFUSIONS Chalino Deng [id number] 03/27/2018 Diagnosis: Rheumatoid arthritis without rheumatoid factor, multiple sites [M06.09]. Pt denies symptoms of infection or antibiotic use, no open wounds, or recent surgery, or plans for surgery in the next couple of weeks. Pt is aware that we use the 0-10 pain scale to assess discomfort. 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 senior front end web developer pt signs consent [...] other signs of hypersensitivity. Jody Sahu RN LING CONTRACTOR documented in this encounter Plan of Treatment Upcoming Encounters Date Type Department Care Team (Late st Contact Info) Description 06/03/2024 1:00 PM DRILLING CONTRACTOR Appointment [facility] - Rheumatology [address] [place] [address] 06/03/2024 2:00 PM DRILLING CONTRACTOR Office Visit [facility] - Rheumatology [address] [place] [address] Gloria Smith MD [address] [place] [phone] documented as of this encounter Visit Diagnoses [...] filter. $ New Bag/Syringe 03/27/2018 10:20 AM DRILLING CONTRACTOR 300 mg 135 mL/hr documented in this encounter Care Teams Conservation Enforcement Officer Relationship Specialty Start Date End Date Tomas Hyman MD [address] [place] [address] PCP - General Family Medicine 12/31/13 05/09/18 Isidro Heredia MD Rheumatology 02/09/11 documented as of this encounter
--- OUTSIDE RECORDS SUMMARY | 2024-05-03 09:01 | XMS_ITS | Encounter Summary ---
Author Organization [facility] Address [address] [facility] [place] [address] Care Team Providers Care Sprinkler Installer Name Role Phone Isidro Heredia MD Unavailable Tomas Hyman MD Primary Care Provider [phone] Reason for Visit * Treatment (Routine) - Closed Specialty Diagnoses / Procedures Referred By Lawrence shah Referred To Contact Infusion Therapy Nurse Diagnoses Rheumatoid arthritis without rheumatoid factor, multiple sites (HCC) Procedures [place] INFLIXIMAB INJECTION Isidro Heredia MD [address] [place] [address] [address] Referral ID Status Reason Start Date Expiration Date Visits Re quested Visits Authorized [id number] Closed 05/13/2018 04/29/2019 1 12 Encounter Details Date Type Department Care Team (Late st Contact Info) Description 10/24/2018 10:00 AM CDT - 10/24/2018 11:59 PM CDT Hospital Encounter [facility] Medical [facility] - Rheumatology [address] [place] [address] Isidro Heredia MD [address] [place] [address] Discharge Disposition: Home or Self [...] Sunday through 01-02 call the office at [phone] After hours or on the weekend call the exchange at [phone] If you have had lab work done [...] [facility] as your provider. Jody Christy, RN documented in this encounter Medications at Time of Discharge Medication Sig Dispensed Refills Start Date End Date atorvastatin (LIPITOR) 40 MG tablet Take 1 (one) tablet by mouth at bedtime iqfidotvbvp-sloo-dix ysorb, PF, 0.5-1-0.5 % SOLN Instill 1 [...] - 10/24/2018 10:21 AM CDT JOSE Deng [id number] 10/24/2018 Diagnosis: Rheumatoid arthritis without rheumatoid factor, [...] st Contact Info) Description 06/03/2024 1:00 PM EMBOSSER APPRENTICE Appointment [facility] - Rheumatology [address] [place] [address] [phone] 06/03/2024 2:00 PM EMBOSSER APPRENTICE Office Visit [facility] - Rheumatology [address] [place] [address] Gloria Smith MD [address] [place] [phone] documented as of this encounter Visit [...] mL/hr documented in this encounter Care Teams Sprinkler Installer Relationship Specialty Start Date End Date Tomas Hyman MD [address] [facility] [address] [place] [address] PCP - General Family Medicine 09/05/18 Isidro Heredia MD Rheumatology 02/09/11 documented as of this encounter
--- OUTSIDE RECORDS SUMMARY | 2024-05-03 09:01 | XMS_ITS | Encounter Summary ---
Author Organization [facility] Address [address] [facility] [place] [address] Care Team Providers Care Transportation Modeler Name Role Phone Isidro Heredia MD Unavailable [phone] Reason for Visit * Reason Comments Arthritis follow up Encounter Details Date Type Department Care Team (Late st Contact Info) Description 07/11/2018 10:15 AM CDT Office Visit [facility] - Rheumatology [address] [place] [address] [phone] Isidro Heredia MD [address] [place] [address] Abnormal LFTs (Primary Dx); Chronic right-sided [...] 2 times daily 180 capsule 3 ??? Eqpuddfrtdo-Ddnepxajm-Drf C-Mn (GLUCOSAMINE CHONDR 1500 COMPLX PO) Take [...] Contact Info) Description 06/03/2024 1:00 PM SUPERVISOR MACHINING Appointment [facility] Rheumatology [address] [place] [address] 06/03/2024 2:00 PM SUPERVISOR MACHINING Office Visit [facility] - Rheumatology [address] [place] [address] [phone] Gloria Smith MD [address] [place] [phone] documented as of this encounter Visit Diagnoses Diagnosis Abnormal LFTs- Primary Other abnormal blood chemistry Chronic right-sided low back pain with right-sided sciatica Rheumatoid arthritis of multiple sites with negative rheumatoid factor (HCC) Chronic pain syndrome documented in this encounter Care Teams Transportation Modeler Relationship Specialty Start Date End Date Isidro Heredia MD Rheumatology 02/09/11 documented as of this encounter
--- OUTSIDE RECORDS SUMMARY | 2024-05-03 09:01 | XMS_ITS | Encounter Summary ---
Author Organization [facility] Address [address] [facility] [place] [address] Care Team Providers Care Museum Attendant Name Role Phone Isidro Heredia MD Unavailable Encounter Details Date Type Department Care Team (Late st Contact Info) Description 05/24/2018 Orders Only [facility] - Rheumatology [address] [place] [address] Isidro Heredia MD [address] [place] [address] Encounter for long-term (current) use [...] Description 06/03/2024 1:00 PM PATENT CLERK Appointment [facility] - Rheumatology [address] [place] [address] 06/03/2024 2:00 PM PATENT CLERK Office Visit [facility] - Rheumatology [address] [place] [address] Gloria Smith MD [address] [place] [phone] documented as of this encounter Visit Diagnoses Diagnosis Encounter for long-term (current) use of medications Encounter for long-term (current) use of other medications documented in this encounter Care Teams Museum Attendant Relationship Specialty Start Date End Date Isidro Heredia MD Rheumatology 02/09/11 documented as of this encounter
--- OUTSIDE RECORDS SUMMARY | 2024-05-03 09:01 | XMS_ITS | Encounter Summary ---
Author Organization [facility] Address [address] [place] [address] Care Team Providers Care Can Doffer Name Role Phone Isidro Heredia MD Unavailable [phone] Tomas Hyman MD Primary Care Provider [phone] Encounter Details Date Type Department Care Team (Latest Contact Info) Description 2018 2:03 PM CDT - 2018 11:59 PM CDT Hospital Encounter [facility] Pain Care [address] [place] [address] [place] [address] [place] [address] Discharge Disposition: Home or Self Care Social [...] 1 (one) tablet by mouth at bedtime srukwpwhoou-wvdf-zjv ysorb, PF, 0.5-1-0.5 % SOLN Instill 1 [...] ??? buPROPion (WELLBUTRIN) 100 MG tablet ??? vflzupwxrkp-pjlq-ujlgmvle, PF, (REFRESH OPTIVE ADVANCED PF) 0.5-1-0.5 % SOLN ??? carvedilol (COREG) 12.5 MG tablet ??? ferrous sulfate 325 (65 FE) MG tablet ??? gabapentin (NEURONTIN) 300 MG capsule ??? Hdlouwpkdek-Twxzqsnjf-Lrx C-Mn (GLUCOSAMINE CHONDR 1500 COMPLX PO) ??? [...] identified, and marked by Dr. Mirza. Responsible truck driver's offsider is not needed due to the patient [...] st Contact Info) Description 06/03/2024 1:00 PM CLAIM AGENT Appointment [facility] - Rheumatology [address] [place] [address] [phone] 06/03/2024 2:00 PM CLAIM AGENT Office Visit [facility] - Rheumatology [address] [place] [address] Gloria Smith MD [address] [place] [phone] Pending Results Name Type Priority Associated Diagnoses [...] mg documented in this encounter Care Teams Can Doffer Relationship Specialty Start Date End Date Tomas Hyman MD [address] [place] [address] PCP - General Family Medicine 09/05/18 Isidro Heredia MD Rheumatology 02/09/11 documented as of this encounter
--- OUTSIDE RECORDS SUMMARY | 2024-05-03 09:01 | XMS_ITS | Encounter Summary ---
Author Organization [facility] Address [address] [place] [address] Care Team Providers Care Personal Care Attendant Name Role Phone Isidro Heredia MD Unavailable [phone] Tomas Hyman MD Primary Care Provider [phone] Encounter Details Date Type Department Care Team (Latest Contact Info) Description 2018 12:45 PM CDT - 2018 2:02 PM CDT Hospital Encounter [facility] Pain Care [address] [place], [place] [phone] [place] [address] [place] [address] Discharge Disposition: Home or Self Care Social [...] Mckinney RN - 2018 2:02 PM CDT [facility] Procedure Center Pain Discharge Instructions Selective [...] headache, or any other problems, please call [phone] or after hours callDr. Mirza at [phone] and tell them your physician's name. The exchange will alert the physician construction supervisor/carpenter. If sedation is given: No sedation given. For Your Next Visit: No additional instructions. Other Instructions: May remove band-aid in 12 Hours. Return in 1 week for TFE #3. documented in this encounter Medications at Time of Discharge Medication Sig Dispensed Refills Start Date End Date atorvastatin (LIPITOR) 40 MG tablet Take 1 (one) tablet by mouth at bedtime tvieijjxovs-yntw-miz ysorb, PF, 0.5-1-0.5 % SOLN Instill 1 [...] st Contact Info) Description 06/03/2024 1:00 PM PANEL ASSEMBLER Appointment [facility] - Rheumatology [address] [place] [address] [phone] 06/03/2024 2:00 PM PANEL ASSEMBLER Office Visit [facility] - Rheumatology [address] [place] [address] Gloria Smith MD [address] [place] [phone] documented as of this encounter Visit Diagnoses Not on filedocumented in this encounter Care Teams Personal Care Attendant Relationship Specialty Start Date End Date Tomas Hyman MD [address] [place] [address] PCP - General Family Medicine 09/05/18 Isidro Heredia MD Rheumatology 02/09/11 documented as of this encounter
--- OUTSIDE RECORDS SUMMARY | 2024-05-03 09:01 | XMS_ITS | Encounter Summary ---
Author Organization [facility] Address [address] [facility] [place] [address] Care Team Providers Care Early Childhood Education Coordinator Name Role Phone Isidro Heredia MD Unavailable [phone] Reason for Visit * Reason Comments Follow-up Encounter Details Date Type Department Care Team (Late st Contact Info) Description 05/16/2018 3:30 PM TOMBSTONE POLISHER Office Visit [facility] - Rheumatology [address] [place] [address] [phone] Isidro Heredia MD [address] [place] [address] Rheumatoid arthritis of multiple sites with [...] Comments Blood Pressure 143/75 05/16/2018 3:57 PM TOMBSTONE POLISHER Pulse 68 05/16/2018 3:57 PM TOMBSTONE POLISHER Temperature - - Respiratory Rate - - Oxygen Saturation - - Inhaled Oxygen Concentration - - Weight 105.7 kg (233 lb) 05/16/2018 3:57 PM TOMBSTONE POLISHER Height - - Body Mass Index 33.43 [...] 2 times daily 180 capsule 1 ??? Aggcokwiloe-Udqevkjoz-Uhg C-Mn (GLUCOSAMINE CHONDR 1500 COMPLX PO) Take [...] Follow up in office in 8 weeks STONE POLISHER documented in this encounter Plan of Treatment Upcoming Encounters Date Type Department Care Team (Late st Contact Info) Description 06/03/2024 1:00 PM TOMBSTONE POLISHER Appointment [facility] - Rheumatology [address] [place] [address] [phone] 06/03/2024 2:00 PM TOMBSTONE POLISHER Office Visit [facility] - Rheumatology [address] [place] [address] Gloria Smith MD [address] [place] [address] [phone] documented as of this encounter Visit Diagnoses [...] at 1800 $ Given 05/16/2018 5:34 PM TOMBSTONE POLISHER Right Shoulder triamcinolone acetonide (KENALOG-40) injection 80 mg 80 mg, Intra-articular, ONCE, 1 dose, On Gabriela 05/16/18 at 1800, Shake well before using. $ Given 05/16/2018 5:34 PM TOMBSTONE POLISHER 80 mg Right Shoulder documented in this encounter Care Teams Early Childhood Education Coordinator Relationship Specialty Start Date End Date Isidro Heredia MD Rheumatology 02/09/11 documented as of this encounter
--- OUTSIDE RECORDS SUMMARY | 2024-05-03 09:01 | XMS_ITS | Encounter Summary ---
Author Organization [facility] Address [address] [facility] [place] [address] Care Team Providers Care Materials Associate Name Role Phone Isidro Heredia MD Unavailable [phone] Tomas Hyman MD Primary Care Provider [phone] Reason for Visit * Reason Comments Arthritis follow up Encounter Details Date Type Department Care Team (Late st Contact Info) Description 09/05/2018 11:15 AM CDT Office Visit [facility] - Rheumatology [address] [place] [address] Isidro Heredia MD [address] [place] [address] Chronic right-sided low back pain with [...] 2 times daily 180 capsule 3 ??? Lrvlsvnwbxs-Cumzorcvt-Zvr C-Mn (GLUCOSAMINE CHONDR 1500 COMPLX PO) Take [...] Info) Description 06/03/2024 1:00 PM NATURAL RESOURCE ECONOMIST Appointment [facility] - Rheumatology [address] [place] [address] 06/03/2024 2:00 PM NATURAL RESOURCE ECONOMIST Office Visit [facility] - Rheumatology [address] [place] [address] Gloria Smith MD [address] [place] [phone] documented as of this encounter Visit Diagnoses Diagnosis Chronic right-sided low back pain with right-sided sciatica- Primary Rheumatoid arthritis of multiple sites with negative rheumatoid factor (HCC) Chronic pain syndrome documented in this encounter Care Teams Materials Associate Relationship Specialty Start Date End Date Tomas Hyman MD [address] [facility] [address] [place] [address] PCP - General Family Medicine 09/05/18 Isidro Heredia MD Rheumatology 02/09/11 documented as of this encounter
--- OUTSIDE RECORDS SUMMARY | 2024-05-03 09:01 | XMS_ITS | Encounter Summary ---
Author Organization [facility] Address [address] [facility] [place] [address] Care Team Providers Care Shellfish Grower Name Role Phone Isidro Heredia MD Unavailable [phone] Tomas Hyman MD Primary Care Provider [phone] Encounter Details Date Type Department Care Team (Latest Contact Info) Description 10/07/2018 11:45 AM CDT - 10/07/2018 1:20 PM CDT Hospital Encounter [facility] Pain Care [address] [place] [address] [place] [address] [place] [address] Discharge Disposition: Home or Self Care Social [...] Jiang RN - 10/07/2018 12:21 PM CDT [facility] Pain Discharge Instructions Selective Epidural [...] headache, or any other problems, please call [phone] or after hours callDr. Mirza at [phone] and tell them your physician's name. The exchange will alert the physician reception agent. If sedation is given: No sedation given. For Your Next Visit: No additional instructions. Other Instructions: May remove band-aid in 12 Hours. Return 1 week or per insurance. documented in this encounter Medications at Time of Discharge Medication Sig Dispensed Refills Start Date End Date atorvastatin (LIPITOR) 40 MG tablet Take 1 (one) tablet by mouth at bedtime phvwtmafqaq-bejw-wml ysorb, PF, 0.5-1-0.5 % SOLN Instill 1 [...] st Contact Info) Description 06/03/2024 1:00 PM CAKE WRAPPER Appointment [facility] - Rheumatology [address] [place] [address] 06/03/2024 2:00 PM CAKE WRAPPER Office Visit [facility] - Rheumatology [address] [place] [address] Gloria Smith MD [address] [place] [phone] documented as of this encounter Visit [...] mL documented in this encounter Care Teams Shellfish Grower Relationship Specialty Start Date End Date Tomas Hyman MD [address] [facility] [address] [place] [address] PCP - General Family Medicine 09/05/18 Isidro Heredia MD Rheumatology 02/09/11 documented as of this encounter
--- OUTSIDE RECORDS SUMMARY | 2024-05-03 09:01 | XMS_ITS | Encounter Summary ---
Author Organization [facility] Address [address] [facility] [place] [address] Care Team Providers Care Machinery Cleaner Name Role Phone Isidro Heredia MD Unavailable [phone] Tomas Hyman MD Primary Care Provider [phone] Encounter Details Date Type Department Care Team (Latest Contact Info) Description 10/07/2018 1:21 PM CDT - 10/07/2018 11:59 PM T Hospital Encounter [facility] Pain Care [address] [place], [place] [id number] [place] [address] [place] [phone] Discharge Disposition: Home or Self Care Social [...] 1 (one) tablet by mouth at bedtime sdhbxeecned-pfqr-ajw ysorb, PF, 0.5-1-0.5 % SOLN Instill 1 [...] ??? buPROPion (WELLBUTRIN) 100 MG tablet ??? onkuefdyvhu-zyhw-jlmzamof, PF, (REFRESH OPTIVE ADVANCED PF) 0.5-1-0.5 % SOLN ??? carvedilol (COREG) 12.5 MG tablet ??? ferrous sulfate 325 (65 FE) MG tablet ??? gabapentin (NEURONTIN) 300 MG capsule ??? Ltynpikgebs-Xcxxgtsuh-Lck C-Mn (GLUCOSAMINE CHONDR 1500 COMPLX PO) ??? [...] identified, and marked by Dr. Mirza. Responsible regional truck driver is not needed due to [...] st Contact Info) Description 06/03/2024 1:00 PM ENDBAND CUTTER HAND Appointment [facility] - Rheumatology [address] [place] [address] 06/03/2024 2:00 PM ENDBAND CUTTER HAND Office Visit [facility] - Rheumatology [address] [place] [address] Gloria Smith MD [address] [place] [phone] documented as of this encounter Procedures [...] buPROPion (WELLBUTRIN) 100 MG tablet ? ? gqyxezwutyj-nbni-bdywrhkp, PF, (REFRESH OPTIVE ADVANCED PF) 0.5-1-0.5 % SOLN ? ? carvedilol (COREG) 12.5 MG tablet ? ? ferrous sulfate 325 (65 FE) MG tablet ? ? gabapentin (NEURONTIN) 300 MG capsule ? ? Mrpbtvmkfgd-Dgzwmkhcs-Afy C-Mn (GLUCOSAMINE CHONDR 1500 COMPLX PO) ? [...] identified, and marked by Dr. Mirza. ??Responsible regional truck driver is not needed due to [...] Lumbar/Sac (S), Epi Add Levels Lumb/Sac, Fluoro. Alejadnro Mirza MD Alejandro Mirza MD DIAGNOSTIC IMAGING O RDERABLES documented in this encounter Visit Diagnoses Diagnosis Radiculopathy of lumbar region Thoracic or lumbosacral neuritis or radiculitis, unspecified Radiculopathy of lumbosacral region Thoracic or lumbosacral neuritis or radiculitis, unspecified documented in this encounter Care Teams Machinery Cleaner Relationship Specialty Start Date End Date Tomas Hyman MD [address] [facility] [address] [place] [address] PCP - General Family Medicine 5/9/19 Isidro Heredia MD Rheumatology 02/09/11 documented as of this encounter
--- OUTSIDE RECORDS SUMMARY | 2024-05-03 09:01 | XMS_ITS | Encounter Summary ---
Author Organization [facility] Address [address] [place] [address] Care Team Providers Care Vegetable Loader Machine Operator Name Role Phone Isidro Heredia MD Unavailable [phone] Tomas Hyman MD Primary Care Provider [phone] Reason for Visit * Reason Onset Date Comments Follow-up 02/26/2018 Encounter Details Date Type Department Care Team (Late Contact Info) Description 02/26/2018 Telephone [facility] Medical [facility] - Rheumatology [address] [place] [address] Isidro Heredia MD [address] [place] [address] Follow-up Social History Tobacco Use Types [...] Contact Info) Description 06/03/2024 1:00 PM STICK INSERTER Appointment [facility] - Rheumatology [address] [place] [address] [phone] 06/03/2024 2:00 PM STICK INSERTER Office Visit [facility] - Rheumatology [address] [place] [address] [phone] Gloria Smith MD [address] [place] [phone] documented as of this encounter Visit Diagnoses Not on filedocumented in this encounter Care Teams Vegetable Loader Machine Operator Relationship Specialty Start Date End Date Tomas Hyman MD [address] [place] [address] PCP - General Family Medicine 12/31/13 05/09/18 Isidro Heredia MD Rheumatology 02/09/11 documented as of this encounter
--- OUTSIDE RECORDS SUMMARY | 2024-05-03 09:01 | XMS_ITS | Encounter Summary ---
Author Organization [facility] Address [address] [facility] [place] [address] Care Team Providers Care General Partner Name Role Phone Isidro Heredia MD Unavailable [phone] Reason for Visit * Treatment (Routine) - Closed Specialty Diagnoses / Procedures Referred By Contac t Referred To Contact Infusion Therapy Nurse Diagnoses Rheumatoid arthritis without rheumatoid factor, multiple sites (HCC) Procedures [place] INFLIXIMAB INJECTION Isidro Heredia MD [address] [place] [address] [address] Referral ID Status Reason Start Date Expiration Date Visits Re quested Visits Authorized [id number] Closed 05/13/2018 04/29/2019 1 12 Encounter Details Date Type Department Care Team (Late st Contact Info) Description 05/16/2018 1:30 PM MIX MAKER - 05/16/2018 11:59 PM MIX MAKER Hospital Encounter [facility] Medical [facility] - Rheumatology [address] [place] [address] Isidro Heredia MD [address] [place] [address] Discharge Disposition: Home or Self [...] Comments Blood Pressure 137/69 05/16/2018 2:45 PM MIX MAKER Pulse 66 05/16/2018 2:45 PM MIX MAKER Temperature 36.9 ??C (98.4 ??F) 05/16/2018 1:49 PM CS T Respiratory Rate 18 05/16/2018 2:45 PM MIX MAKER Oxygen Saturation - - Inhaled Oxygen Concentration - - Weight 105.7 kg (233 lb) 05/16/2018 1:49 PM MIX MAKER Height - - Body Mass Index 33.43 01/11/2016 3:12 PM CDT documented in this encounter Discharge Instructions * Discharge Instructions* Jody Sahu, RN - 05/16/2018 1:53 PM MIX MAKER MA Rheumatology Post Infusion instructions You have received [...] through Sunday 9-5 call the office at [phone] After hours or on the weekend call the exchange at [phone] If you have had lab work done [...] Hospital as your provider. Jody Sahu RN MAKER documented in this encounter Medications at Time [...] 05/16/2018 2:02 PM CST JOSE Chalino Deng [id number] 05/16/2018 Diagnosis: Rheumatoid arthritis without rheumatoid factor, multiple sites [M06.09]. Pt denies symptoms of infection or antibiotic use, no open wounds, or recent surgery, or plans for surgery in the next couple of weeks. Pt is aware that we use the 0-10 pain scale to assess discomfort. 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 front end software developer pt signs consent for treatment for [...] at Doctor's visit today Jody Sahu RN MAKER documented in this encounter Plan of Treatment Upcoming Encounters Date Type Department Care Team (Late st Contact Info) Description 06/03/2024 1:00 PM MIX MAKER Appointment [facility] - Rheumatology [address] [place] [address] [phone] 06/03/2024 2:00 PM MIX MAKER Office Visit [facility] - Rheumatology [address] [place] [address] [phone] Gloria Smith MD [address] [place] [phone] documented as of this encounter Visit [...] filter. $ New Bag/Syringe 05/16/2018 2:08 PM MIX MAKER 300 mg 40 mL/hr documented in this encounter Care Teams General Partner Relationship Specialty Start Date End Date Isidro Heredia MD Rheumatology 02/09/11 documented as of this encounter
--- OUTSIDE RECORDS SUMMARY | 2024-05-03 09:01 | XMS_ITS | Encounter Summary ---
Author Organization [facility] Address [address] [place] [place] [address] Care Team Providers Care Middleware Administrator Name Role Phone Isidro Heredia MD Unavailable Encounter Details Date Type Department Care Team (Late st Contact Info) Description 08/16/2018 Orders Only [facility] - Rheumatology [address] [place] [address] Isidro Heredia MD [address] [place] [address] Encounter for long-term (current) use [...] st Contact Info) Description 06/03/2024 1:00 PM ELECTROPLATING LABORER Appointment [facility] - Rheumatology [address] [place] [address] 06/03/2024 2:00 PM ELECTROPLATING LABORER Office Visit [facility] - Rheumatology [address] [place] [address] Gloria Smith MD [address] [place] [phone] documented as of this encounter Procedures [...] Resulting Agency Comment Lab Testing performed at: [facility] ??[facility] [phone] Isidro Heredia MD LAB - HEMATOLOGY OR DERABLES [facility] INSURANCE BILL [address] [place] [address] documented in this encounter Visit Diagnoses Diagnosis Encounter for long-term (current) use of medications Encounter for long-term (current) use of other medications documented in this encounter Care Teams Middleware Administrator Relationship Specialty Start Date End Date Isidro Heredia MD Rheumatology 02/09/11 documented as of this encounter
--- OUTSIDE RECORDS SUMMARY | 2024-05-03 09:01 | XMS_ITS | Encounter Summary ---
Author Organization [facility] Address [address] [place] [address] Care Team Providers Care Web Content Editor Name Role Phone Isidro Heredia MD Unavailable [phone] Tomas Hyman MD Primary Care Provider [phone] Encounter Details Date Type Department Care Team (Late Contact Info) Description 03/04/2018 Orders Only [facility] - Rheumatology [address] [place] [address] Isidro Heredia MD [address] [place] [address] Encounter for long-term (current) use of [...] (Late Contact Info) Description 06/03/2024 1:00 PM DERMATOLOGY NURSE PRACTITIONER Appointment [facility] - Rheumatology [address] [place] [address] 06/03/2024 2:00 PM DERMATOLOGY NURSE PRACTITIONER Office Visit [facility] Rheumatology [address] [place] [address] Gloria Smith MD [address] [place], [place] [address] [place] [phone] Scheduled Orders Name Type Priority Associated Diagnoses [...] ERYTHROCYTE SEDIMENTATION RATE Routine 03/07/2018 12:00 PM DERMATOLOGY NURSE PRACTITIONER Encounter for long-term (current) use of medications CBC W AUTO DIFFERENTIAL Routine 03/07/2018 12:00 PM DERMATOLOGY NURSE PRACTITIONER Encounter for long-term (current) use of medications COMPREHENSIVE METABOLIC PANEL Routine 03/07/2018 12:00 PM DERMATOLOGY NURSE PRACTITIONER Encounter for long-term (current) use of medications [...] Resulting Agency Comment Lab Testing performed at: [facility] ??[facility] [phone] Isidro Heredia MD LAB - HEMATOLOGY OR DERABLES Performing Organization Address City/[facility] Co de Phone Number [facility] INSURANCE BILL [address] [place] [address] * ERYTHROCYTE SEDIMENTATION RATE (03/07/2018 12:00 PM DERMATOLOGY NURSE PRACTITIONER) Erythrocyte Sedimentation Rate Westergren 23 0 - 30 mm/hr [facility] INSURANCE BILL Blood BLOOD SPECIMEN / Unknown 03/07/2018 12:00 PM DERMATOLOGY NURSE PRACTITIONER 03/07/2018 Narrative Resulting Agency Comment [facility] ??[facility] [phone] Isidro Heredia MD LAB - HEMATOLOGY OR DERABLES Performing Organization Address City/[facility]/ZIP Co de Phone Number [facility] INSURANCE BILL [address] [place] [address] * (ABNORMAL) COMPREHENSIVE METABOLIC PANEL (03/07/2018 12:00 PM DERMATOLOGY NURSE PRACTITIONER) Glucose 135(H) 65 - 99 mg/dL [facility] [...] BLOOD SPECIMEN / Unknown 03/07/2018 12:00 PM DERMATOLOGY NURSE PRACTITIONER 03/07/2018 Narrative Resulting Agency Comment [facility] [address] [facility] ??[facility] [phone] Isidro Heredia MD LAB - CHEMISTRY ORD ERABLES [facility] INSURANCE BILL [address] [place] [address] * (ABNORMAL) CBC WITH DIFFERENTIAL (03/07/2018 12:00 PM DERMATOLOGY NURSE PRACTITIONER) [facility] WBC 10.8 3.4 - 10.8 x10E3/uL [facility] [...] BLOOD SPECIMEN / Unknown 03/07/2018 12:00 PM DERMATOLOGY NURSE PRACTITIONER 03/07/2018 Narrative Resulting Agency Comment [facility] [address] ??[facility] [phone] Isidro Heredia MD LAB - HEMATOLOGY OR DERABLES [facility] INSURANCE BILL [address] [place] [address] documented in this encounter Visit Diagnoses Diagnosis Encounter for long-term (current) use of medications- Primary Encounter for long-term (current) use of other medications documented in this encounter Care Teams Web Content Editor Relationship Specialty Start Date End Date Tomas Hyman MD [address] [place] [address] PCP - General Family Medicine 12/31/13 05/09/18 Isidro Heredia MD Rheumatology 02/09/11 documented as of this encounter
--- OUTSIDE RECORDS SUMMARY | 2024-05-03 09:01 | XMS_ITS | Encounter Summary ---
Author Organization [facility] Address [address] [facility] [place] [address] Care Team Providers Care Benzene Worker Name Role Phone Isidro Heredia MD Unavailable [phone] Tomas Hyman MD Primary Care Provider [phone] Reason for Visit * Treatment (Routine) - Closed Specialty Diagnoses / Procedures Referred By Lawrence shah Referred To Contact Infusion Therapy Nurse Diagnoses Rheumatoid arthritis without rheumatoid factor, multiple sites (HCC) Procedures [place] INFLIXIMAB INJECTION Isidro Heredia MD [address] [place] [address] [address] Referral ID Status Reason Start Date Expiration Date Visits Re quested Visits Authorized [id number] Closed 02/28/2018 04/29/2018 1 6 Encounter Details Date Type Department Care Team (Late st Contact Info) Description 03/07/2018 10:54 AM SCANNER OPERATOR - 03/07/2018 11:59 PM SCANNER OPERATOR Hospital Encounter [facility] Medical [facility] - Rheumatology [address] [place] [address] Isidro Heredia MD [address] [place] [address] Discharge Disposition: Home or Self [...] Comments Blood Pressure 133/81 03/07/2018 11:21 AM SCANNER OPERATOR Pulse 85 03/07/2018 11:21 AM SCANNER OPERATOR Temperature 36.8 ??C (98.3 ??F) 03/07/2018 11:[address] Respiratory Rate 18 03/07/2018 11:21 AM SCANNER OPERATOR Oxygen Saturation - - Inhaled Oxygen Concentration - - Weight 103 kg (227 lb) 03/07/2018 11:21 AM SCANNER OPERATOR Height - - Body Mass Index 32.57 01/11/2016 3:12 PM CDT documented in this encounter Discharge Instructions * Discharge Instructions* Jody Sahu RN - 03/07/2018 12:07 PM SCANNER OPERATOR [place] Rheumatology Post Infusion instructions You have [...] through Sunday 9-5 call the office at [phone] After hours or on the weekend call the exchange at [phone] If you have had lab work done [...] Hospital as your provider. Jody Sahu RN NER OPERATOR documented in this encounter Medications at [...] - 03/07/2018 11:46 AM CST JOSE Deng [id number] 03/07/2018 Diagnosis: Rheumatoid arthritis without rheumatoid factor, multiple sites [M06.09]. Pt denies symptoms of infection or antibiotic use, no open wounds, or recent surgery, or plans for surgery in the next couple of weeks. Pt is aware that we use the 0-10 pain scale to assess discomfort. 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 desk attendant pt signs consent for treatment [...] without any symptoms hypersensitivity. Jody Sahu RN NER OPERATOR documented in this encounter Plan of Treatment Upcoming Encounters Date Type Department Care Team (Late st Contact Info) Description 06/03/2024 1:00 PM SCANNER OPERATOR Appointment [facility] - Rheumatology [address] [place] [address] [phone] 06/03/2024 2:00 PM SCANNER OPERATOR Office Visit [facility] - Rheumatology [address] [place] [address] [phone] Gloria Smith MD [address] [place] [phone] documented as of this encounter Visit [...] Starting on Gabriela 03/07/18 at 1130, Until Gabriela 03/07/18 at 1429, Refrigerate. Use with in-line [...] filter. $ New Bag/Syringe 03/07/2018 11:35 AM SCANNER OPERATOR 300 mg 10 mL/hr documented in this encounter Care Teams Benzene Worker Relationship Specialty Start Date End Date Tomas Hyman MD [address] [facility] [address] [place] [address] PCP - General Family Medicine 12/31/13 05/09/18 Isidro Heredia MD Rheumatology 02/09/11 documented as of this encounter
--- OUTSIDE RECORDS SUMMARY | 2024-05-03 09:01 | XMS_ITS | Encounter Summary ---
Author Organization [facility] Address [address] [place] [address] Care Team Providers Care Physical Therapist Assistant Name Role Phone Isidro Heredia MD Unavailable [phone] Tomas Hyman MD Primary Care Provider [phone] Reason for Visit * Reason Onset Date Comments Appointment 01/14/2018 Encounter Details Date Type Department Care Team (Late st Contact Info) Description 01/14/2018 Telephone [facility] Medical [facility] - Rheumatology [address] [place] [address] Isidro Heredia MD [address] [place] [address] Appointment Social History Tobacco Use Types [...] st Contact Info) Description 06/03/2024 1:00 PM ROBOTICS SPECIALIST Appointment [facility] - Rheumatology [address] [place] [address] 06/03/2024 2:00 PM ROBOTICS SPECIALIST Office Visit [facility] - Rheumatology [address] [place] [address] Gloria Smith MD [address] [place] [phone] documented as of this encounter Visit Diagnoses Not on filedocumented in this encounter Care Teams Physical Therapist Assistant Relationship Specialty Start Date End Date Tomas Hyman MD [address] [facility] [address] [place] [address] PCP - General Family Medicine 12/31/13 05/09/18 Isidro Heredia MD Rheumatology 02/09/11 documented as of this encounter
--- OUTSIDE RECORDS SUMMARY | 2024-05-03 09:01 | XMS_ITS | Encounter Summary ---
Author Organization [facility] Address [address] [place] [address] Care Team Providers Care Revenue Enforcement Collection Agent Name Role Phone Isidro Heredia MD Unavailable [phone] Tomas Hyman MD Primary Care Provider [phone] Reason for Visit * Treatment (Routine) - Closed Specialty Diagnoses / Procedures Referred By Lawrence shah Referred To Contact Infusion Therapy Nurse Diagnoses Rheumatoid arthritis without rheumatoid factor, multiple sites (HCC) Procedures [place] INFLIXIMAB INJECTION Isidro Heredia MD [address] [place] [address] [address] Referral ID Status Reason Start Date Expiration Date Visits Re quested Visits Authorized [id number] Closed 05/13/2018 04/29/2019 1 12 Encounter Details Date Type Department Care Team (Late st Contact Info) Description 09/05/2018 10:00 AM CDT - 09/05/2018 11:59 PM CDT Hospital Encounter [facility] Medical [facility] - Rheumatology [address] [place] [address] Isidro Heredia MD [address] [place] [address] Discharge Disposition: Home or Self [...] Christy RN - 09/05/2018 10:29 AM CDT [place] Rheumatology Post Infusion instructions You [...] Sunday through 01-02 call the office at [phone] After hours or on the weekend call the exchange at [phone] If you have had lab work done [...] [facility]. Jody Christy RN documented in this encounter Medications at Time of Discharge Medication Sig Dispensed Refills Start Date End Date atorvastatin (LIPITOR) 40 MG tablet Take 1 (one) tablet by mouth at bedtime ekwtnrzqgcn-usic-xex ysorb, PF, 0.5-1-0.5 % SOLN Instill 1 [...] - 09/05/2018 10:27 AM CDT JOSE Deng [id number] 09/05/2018 Diagnosis: Rheumatoid arthritis without rheumatoid factor, multiple sites [M06.09]. Pt denies symptoms of infection or antibiotic use, no open wounds, or recent surgery, or plans for surgery in the next couple of weeks. Pt is aware that we use the 0-10 pain scale to assess discomfort. 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 front office attendant pt signs consent for treatment for [...] st Contact Info) Description 06/03/2024 1:00 PM CAREER AND TECHNOLOGY EDUCATION TEACHER Appointment [facility] - Rheumatology [address] [place] [address] [phone] 06/03/2024 2:00 PM CAREER AND TECHNOLOGY EDUCATION TEACHER Office Visit [facility] - Rheumatology [address] [place] [address] [phone] Gloria Smith MD [address] [place] [phone] documented as of this encounter Visit [...] mL/hr documented in this encounter Care Teams Revenue Enforcement Collection Agent Relationship Specialty Start Date End Date Tomas Hyman MD [address] [facility] [address] [place] [address] PCP - General Family Medicine 09/05/18 Isidro Heredia MD Rheumatology 02/09/11 documented as of this encounter
--- OUTSIDE RECORDS SUMMARY | 2024-05-03 09:01 | XMS_ITS | Encounter Summary ---
Author Organization [facility] Address [address] [facility] [place] [address] Care Team Providers Care Transmission Supervisor Name Role Phone Isidro Heredia MD Unavailable [phone] Encounter Details Date Type Department Care Team (Late Contact Info) Description 05/13/2018 Orders Only [facility] - Rheumatology [address] [place] [address] Isidro Heredia MD [address] [place] [address] Rheumatoid arthritis of multiple sites with [...] (Late Contact Info) Description 06/03/2024 1:00 PM PACKAGING LINE OPERATOR Appointment [facility] - Rheumatology [address] [place] [address] 06/03/2024 2:00 PM PACKAGING LINE OPERATOR Office Visit [facility] - Rheumatology [address] [place] [address] Gloria Smith MD [address] [place] [address] [place] [phone] documented as of this encounter Procedures Procedure [...] CDT 07/11/2018 Narrative Resulting Agency Comment [facility] [address] [facility] ??[facility] [id number] Iisdro Heredia MD LAB - HEMATOLOGY OR DERABLES [facility] INSURANCE BILL [address] [place] [address] * (ABNORMAL) COMPREHENSIVE METABOLIC PANEL (07/11/2018 9:30 [...] CDT 07/11/2018 Narrative Resulting Agency Comment [facility] [address] ??[facility] [phone] Isidro Heredia MD LAB - CHEMISTRY ORD ERABLES [facility] INSURANCE BILL [address] [place] [address] * (ABNORMAL) CBC WITH DIFFERENTIAL (07/11/2018 9:30 [...] CDT 07/11/2018 Narrative Resulting Agency Comment [facility] [address] ??[facility] [phone] Isidro Heredia MD LAB - HEMATOLOGY OR DERABLES [facility] INSURANCE BILL [address] [place] [address] documented in this encounter Visit Diagnoses Diagnosis Rheumatoid arthritis of multiple sites with negative rheumatoid factor (HCC)- Primary documented in this encounter Care Teams Transmission Supervisor Relationship Specialty Start Date End Date Isidro Heredia MD Rheumatology 02/09/11 documented as of this encounter
--- OUTSIDE RECORDS SUMMARY | 2024-05-03 09:01 | XMS_ITS | Encounter Summary ---
Author Organization [facility] Address [address] [place] [address] Care Team Providers Care Health Science Specialist Name Role Phone Isidro Heredia MD Unavailable [phone] Reason for Visit * Treatment (Routine) - Closed Specialty Diagnoses / Procedures Referred By Contac t Referred To Contact Infusion Therapy Nurse Diagnoses Rheumatoid arthritis without rheumatoid factor, multiple sites (HCC) Procedures [place] INFLIXIMAB INJECTION Isidro Heredia MD [address] [place] [address] [address] Referral ID Status Reason Start Date Expiration Date Visits Re quested Visits Authorized [id number] Closed 05/13/2018 04/29/2019 1 12 Encounter Details Date Type Department Care Team (Late st Contact Info) Description 07/11/2018 9:17 AM CDT - 07/11/2018 11:59 PM CDT Hospital Encounter [facility] Medical [facility] - Rheumatology [address] [place] [address] Isidro Heredia MD [address] [place] [address] Discharge Disposition: Home or Self [...] Sahu RN - 07/11/2018 10:01 AM CDT [place] Rheumatology Post Infusion instructions You [...] through Sunday 9-5 call the office at [phone] After hours or on the weekend call the exchange at [phone] If you have had lab work done [...] 07/11/2018 10:03 AM CDT JOSE Chalino Deng [id number] 07/11/2018 Diagnosis: Rheumatoid arthritis without rheumatoid factor, [...] st Contact Info) Description 06/03/2024 1:00 PM AIRFRAME TECHNICIAN Appointment [facility] - Rheumatology [address] [place] [address] 06/03/2024 2:00 PM AIRFRAME TECHNICIAN Office Visit [facility] - Rheumatology [address] [place] [address] Gloria Smith MD [address] [place] [phone] documented as of this encounter Visit [...] mL/hr documented in this encounter Care Teams Health Science Specialist Relationship Specialty Start Date End Date Isidro eHredia MD Rheumatology 02/09/11 documented as of this encounter
--- OUTSIDE RECORDS SUMMARY | 2024-05-03 09:01 | XMS_ITS | Encounter Summary ---
Author Organization [facility] Address [address] [place] [address] Care Team Providers Care Manager It Security Name Role Phone Isidro Heredia MD Unavailable [phone] Tomas Hyman MD Primary Care Provider [phone] Encounter Details Date Type Department Care Team (Late st Contact Info) Description 03/07/2018 11:15 AM ASSOCIATE PROFESSOR OF CRIMINAL JUSTICE Office Visit [facility] Medical [facility] - Rheumatology [address] [place] [address] [phone] Isidro Heredia MD [address] [place] [address] Subacromial bursitis (Primary Dx); Rheumatoid arthritis [...] Comments Blood Pressure 133/81 03/07/2018 11:38 AM ASSOCIATE PROFESSOR OF CRIMINAL JUSTICE Pulse 85 03/07/2018 11:38 AM ASSOCIATE PROFESSOR OF CRIMINAL JUSTICE Temperature - - Respiratory Rate - - Oxygen Saturation - - Inhaled Oxygen Concentration - - Weight 103 kg (227 lb) 03/07/2018 11:38 AM ASSOCIATE PROFESSOR OF CRIMINAL JUSTICE Height - - Body Mass Index 32.57 [...] 1 Tab by mouth once daily ??? Lnsbnkltgif-Jzrlkbvkd-Mql C-Mn (GLUCOSAMINE CHONDR 1500 COMPLX PO) Take [...] Plan: Plan Orders Placed This Encounter ??? CO DRAIN/INJECT LARGE JOINT/BURSA ??? DISCONTD: oxyCODONE-acetaminophen (PERCOCET) [...] Follow up in office in 8 weeks CIATE PROFESSOR OF CRIMINAL JUSTICE documented in this encounter Plan of Treatment Upcoming Encounters Date Type Department Care Team (Late st Contact Info) Description 06/03/2024 1:00 PM ASSOCIATE PROFESSOR OF CRIMINAL JUSTICE Appointment [facility] - Rheumatology [address] [place] [address] [phone] 06/03/2024 2:00 PM ASSOCIATE PROFESSOR OF CRIMINAL JUSTICE Office Visit [facility] - Rheumatology [address] [place] [address] Gloria Smith MD [address] [place] [phone] documented as of this encounter Visit [...] at 1615 $ Given 03/07/2018 3:50 PM ASSOCIATE PROFESSOR OF CRIMINAL JUSTICE Left Shoulder triamcinolone acetonide (KENALOG-40) injection 80 mg 80 mg, Intra-articular, ONCE, 1 dose, On Gabriela 03/07/18 at 1615, Shake well before using. $ Given 03/07/2018 3:51 PM ASSOCIATE PROFESSOR OF CRIMINAL JUSTICE 80 mg Left Shoulder documented in this encounter Care Teams Manager It Security Relationship Specialty Start Date End Date Tomas Hyman MD [address] [facility] [address] [place] [address] PCP - General Family Medicine 12/31/13 05/09/18 Isidro Heredia MD Rheumatology 02/09/11 documented as of this encounter
--- OUTSIDE RECORDS SUMMARY | 2024-05-03 09:02 | XMS_ITS | Encounter Summary ---
Author Organization [facility] Address [address] [facility] [place] [address] Care Team Providers Care Brood Hatchery Manager Name Role Phone Isidro Heredia MD Unavailable [phone] Tomas Hyman MD Primary Care Provider [phone] Reason for Visit * Treatment (Routine) - Closed Specialty Diagnoses / Procedures Referred By Lawrence shah Referred To Contact Infusion Therapy Nurse Diagnoses Rheumatoid arthritis without rheumatoid factor, multiple sites (HCC) Procedures [place] INJECTION TOCILIZUMAB 1 MG Isidro Heredia MD [facility] [place] [address] [address] Referral ID Status Reason Start Date Expiration Date Visits Re quested Visits Authorized [id number] Closed 05/11/2017 04/29/2018 1 13 Encounter Details Date Type Department Care Team (Late st Contact Info) Description 10/24/2017 1:17 PM CDT - 10/24/2017 11:59 PM CDT Hospital Encounter [facility] - Rheumatology [address] [place] [address] Isidro Heredia MD [address] [facility] [place] [place] [address] Discharge Disposition: Home or Self [...] Sahu RN - 10/24/2017 1:51 PM CDT [place] Rheumatology Post Infusion instructions [...] Sunday through 01-02 call the office at [phone] After hours or on the weekend call the exchange at [phone] If you have had lab work done [...] 10/24/2017 2:10 PM CDT JOSE Allred Deng [id number] 10/24/2017 Diagnosis: Rheumatoid arthritis without rheumatoid factor, multiple sites [M06.09]. Pt denies symptoms of infection or antibiotic use, no open wounds, or recent surgery, or plans for surgery in the next couple of weeks. Pt is aware that we use the 0-10 pain scale to assess discomfort. 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 senior front end developer pt signs consent for [...] st Contact Info) Description 06/03/2024 1:00 PM COLLAR TURNER OPERATOR Appointment [facility] - Rheumatology [address] [place] [address] [phone] 06/03/2024 2:00 PM COLLAR TURNER OPERATOR Office Visit [facility] - Rheumatology [address] [place] [address] [phone] Gloria Smith MD [address] [place] [phone] documented as of this encounter Visit Diagnoses [...] mL/hr documented in this encounter Care Teams Brood Hatchery Manager Relationship Specialty Start Date End Date Tomas Hyman MD [address] [facility] [address] [place] [address] PCP - General Family Medicine 12/31/13 05/09/18 Isidro Heredia MD Rheumatology 02/09/11 documented as of this encounter
--- OUTSIDE RECORDS SUMMARY | 2024-05-03 09:02 | XMS_ITS | Encounter Summary ---
Author Organization [facility] Address [address] [facility] [place] [address] Care Team Providers Care Methodologist Name Role Phone Isirdo Heredia MD Unavailable [phone] Tomas Hyman MD Primary Care Provider [phone] Reason for Visit * Treatment (Routine) - Closed Specialty Diagnoses / Procedures Referred By Lawrence shah Referred To Contact Infusion Therapy Nurse Diagnoses Rheumatoid arthritis without rheumatoid factor, multiple sites (HCC) Procedures [place] INJECTION TOCILIZUMAB 1 MG Isidro Heredia MD [address] [facility] [place] [address] [address] Referral ID Status Reason Start Date Expiration Date Visits Re quested Visits Authorized [id number] Closed 05/11/2017 04/29/2018 1 13 Encounter Details Date Type Department Care Team (Late st Contact Info) Description 09/03/2017 1:47 PM CDT - 09/03/2017 11:59 PM CDT Hospital Encounter [facility] - Rheumatology [address] [place] [address] Isidro Heredia MD [address] [facility] [place] [address] Discharge Disposition: Home or Self [...] Sahu RN - 09/03/2017 2:23 PM CDT [place] Rheumatology Post Infusion instructions [...] Sunday through 01-02 call the office at [phone] After hours or on the weekend call the exchange at [phone] If you have had lab work done [...] 09/03/2017 2:38 PM CDT JOSE Allred Deng [id number] 09/03/2017 Diagnosis: Rheumatoid arthritis without rheumatoid factor, multiple sites [M06.09]. Pt denies symptoms of infection or antibiotic use, no open wounds, or recent surgery, or plans for surgery in the next couple of weeks. Pt is aware that we use the 0-10 pain scale to assess discomfort. 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 front end software engineer pt signs consent for treatment for [...] st Contact Info) Description 06/03/2024 1:00 PM FLEET MANAGER Appointment [facility] - Rheumatology [address] [place] [address] [phone] 06/03/2024 2:00 PM FLEET MANAGER Office Visit [facility] - Rheumatology [address] [place] [address] Gloria Smith MD [address] [place] [phone] documented as of this encounter Visit Diagnoses [...] mL/hr documented in this encounter Care Teams Methodologist Relationship Specialty Start Date End Date Tomas Hyman MD [address] [facility] [address] [place] [address] PCP - General Family Medicine 12/31/13 05/09/18 Isidro Heredia MD Rheumatology 02/09/11 documented as of this encounter
--- OUTSIDE RECORDS SUMMARY | 2024-05-03 09:02 | XMS_ITS | Encounter Summary ---
Author Organization [facility] Address [address] [facility] [place] [address] Care Team Providers Care Ampoule Filler And Sealer Name Role Phone Isidro Heredia MD Unavailable [phone] Tomas Hyman MD Primary Care Provider [phone] Encounter Details Date Type Department Care Team (Late Contact Info) Description 09/03/2017 Orders Only [facility] - Rheumatology [address] [place] [address] Isidro Heredia MD [address] [place] [address] Social History Tobacco Use Types Packs/Day [...] Info) Description 06/03/2024 1:00 PM QUALITY ASSURANCE SUPERVISOR BODY Appointment [facility] - Rheumatology [address] [place] [address] 06/03/2024 2:00 PM QUALITY ASSURANCE SUPERVISOR BODY Office Visit [facility] - Rheumatology [address] [place] [address] Gloria Smith MD [address] [place] [phone] documented as of this encounter Visit Diagnoses Not on filedocumented in this encounter Care Teams Ampoule Filler And Sealer Relationship Specialty Start Date End Date Tomas Hyman MD [address] [facility] [address] [place] [address] PCP - General Family Medicine 12/31/13 05/09/18 Isidro Heredia MD Rheumatology 02/09/11 documented as of this encounter
--- OUTSIDE RECORDS SUMMARY | 2024-05-03 09:02 | XMS_ITS | Encounter Summary ---
Author Organization [facility] Address [address] [facility] [place] [address] Care Team Providers Care Booster Pump Operator Name Role Phone Isidro Heredia MD Unavailable [phone] Tomas Hyman MD Primary Care Provider [phone] Reason for Visit * Reason Comments Refill Request Encounter Details Date Type Department Care Team (Late Contact Info) Description 06/17/[address] [facility] - Rheumatology [address] [place] [address] Isidro Heredia MD [address] [place] [address] Refill Request Social History Tobacco Use [...] (Late Contact Info) Description 06/03/2024 1:00 PM ASSISTANT SPA MANAGER Appointment [facility] - Rheumatology [address] [place] [address] 06/03/2024 2:00 PM ASSISTANT SPA MANAGER Office Visit [facility] Rheumatology [address] [place] [address] Gloria Smith MD [address] [place] [address], [place] [address] documented as of this encounter Visit Diagnoses Not on filedocumented in this encounter Care Teams Booster Pump Operator Relationship Specialty Start Date End Date Tomas Hyman MD [address] [place] [address] PCP - General Family Medicine 12/31/13 05/09/18 Isidro Heredia MD Rheumatology 02/09/11 documented as of this encounter
--- OUTSIDE RECORDS SUMMARY | 2024-05-03 09:02 | XMS_ITS | Encounter Summary ---
Author Organization [facility] Address [address] [facility] [place] [address] Care Team Providers Care Web Merchandiser Name Role Phone Isidro Heredia MD Unavailable [phone] Tomas Hyman MD Primary Care Provider [phone] Reason for Visit * Reason Comments Refill Request Encounter Details Date Type Department Care Team (Late Contact Info) Description 06/19/2017 Refill [facility] - Rheumatology [address] [place] [address] Isidro Heredia MD [address] [place] [address] Refill Request Social History Tobacco Use [...] (Late Contact Info) Description 06/03/2024 1:00 PM REAL ESTATE AGENT Appointment [facility] - Rheumatology [address] [place] [address] 06/03/2024 2:00 PM REAL ESTATE AGENT Office Visit [facility] Rheumatology [address] [place] [address] Gloria Smith MD [address] [place], [place] [address] [address] documented as of this encounter Visit Diagnoses Not on filedocumented in this encounter Care Teams Web Merchandiser Relationship Specialty Start Date End Date Tomas Hyman MD [address] [place] [address] PCP - General Family Medicine 12/31/13 05/09/18 Isidro Heredia MD Rheumatology 02/09/11 documented as of this encounter
--- OUTSIDE RECORDS SUMMARY | 2024-05-03 09:02 | XMS_ITS | Encounter Summary ---
Author Organization [facility] Address [address] [facility] [place] [address] Care Team Providers Care Maple Sugar Maker Name Role Phone Isidro Heredia MD Unavailable [phone] Tomas Hyman MD Primary Care Provider [phone] Reason for Visit * Reason Onset Date Comments MEDICATION REFILL 11/21/2017 Encounter Details Date Type Department Care Team (Late Contact Info) Description 11/21/2017 Refill [facility] - Rheumatology [address] [place] [address] Isidro Heredia MD [address] [place] [address] MEDICATION REFILL Social History Tobacco Use [...] (Late Contact Info) Description 06/03/2024 1:00 PM PRECINCT CAPTAIN Appointment [facility] - Rheumatology [address] [place] [address] 06/03/2024 2:00 PM PRECINCT CAPTAIN Office Visit [facility] - Rheumatology [address] [place] [address] Gloria Smith MD [address] [place] [address] documented as of this encounter Visit Diagnoses Not on filedocumented in this encounter Care Teams Maple Sugar Maker Relationship Specialty Start Date End Date Tomas Hyman MD [address] [place] [address] PCP - General Family Medicine 12/31/13 05/09/18 Isidro Heredia MD Rheumatology 02/09/11 documented as of this encounter
--- OUTSIDE RECORDS SUMMARY | 2024-05-03 09:02 | XMS_ITS | Encounter Summary ---
Author Organization [facility] Address [address] [facility] [place] [address] Care Team Providers Care Avionics Test Technician Name Role Phone Isidro Heredia MD Unavailable [phone] Tomas Hyman MD Primary Care Provider [phone] Reason for Visit * Reason Comments Rheumatoid Arthritis General dizzy, headaches, ph legm, feels weak and run down Encounter Details Date Type Department Care Team (Late st Contact Info) Description 06/14/2017 1:30 PM SOLAR MANAGER Office Visit [facility] - Rheumatology [address] [place] [address] Isidro Heredia MD [address] [place] [address] Rheumatoid arthritis of multiple sites with [...] Comments Blood Pressure 148/98 06/14/2017 1:36 PM SOLAR MANAGER Pulse 114 06/14/2017 1:36 PM SOLAR MANAGER Temperature - - Respiratory Rate - - Oxygen Saturation - - Inhaled Oxygen Concentration - - Weight 106.1 kg (234 lb) 06/14/2017 1:36 PM SOLAR MANAGER Height - - Body Mass Index 33.58 [...] 1 Tab by mouth once daily ??? Gycenckuywq-Cpqbqprcb-Kjq C-Mn (GLUCOSAMINE CHONDR 1500 COMPLX PO) Take [...] Follow up in office in 6 weeks R MANAGER documented in this encounter Plan of Treatment Upcoming Encounters Date Type Department Care Team (Late st Contact Info) Description 06/03/2024 1:00 PM SOLAR MANAGER Appointment [facility] - Rheumatology [address] [place] [address] 06/03/2024 2:00 PM SOLAR MANAGER Office Visit [facility] - Rheumatology [address] [place] [address] Gloria Smith MD [address] [place] [phone] documented as of this encounter Visit Diagnoses Diagnosis Rheumatoid arthritis of multiple sites with negative rheumatoid factor (HCC)- Primary Chronic pain syndrome documented in this encounter Care Teams Avionics Test Technician Relationship Specialty Start Date End Date Tomas Hyman MD [address] [place] [address] PCP - General Family Medicine 12/31/13 05/09/18 Isidro Heredia MD Rheumatology 02/09/11 documented as of this encounter
--- OUTSIDE RECORDS SUMMARY | 2024-05-03 09:02 | XMS_ITS | Encounter Summary ---
Author Organization [facility] Address [address] [place] [address] Care Team Providers Care Pharmaceutical Officer Name Role Phone Isidro Heredia MD Unavailable [phone] Tomas Hyman MD Primary Care Provider [phone] Reason for Visit * Reason Onset Date Comments MEDICATION REFILL 04/05/2017 Encounter Details Date Type Department Care Team (Late Contact Info) Description 04/05/2017 Refill [facility] - Rheumatology [address] [place] [address] Isidro Heredia MD [address] [place] [address] MEDICATION REFILL Social History Tobacco Use [...] (Late Contact Info) Description 06/03/2024 1:00 PM PROGRAM STRATEGIST Appointment [facility] - Rheumatology [address] [place] [address] 06/03/2024 2:00 PM PROGRAM STRATEGIST Office Visit [facility] - Rheumatology [address] [place] [place] [address] Gloria Smith MD [address] [place] [address] documented as of this encounter Visit Diagnoses Not on filedocumented in this encounter Care Teams Pharmaceutical Officer Relationship Specialty Start Date End Date Tomas Hyman MD [address] [place] [address] PCP - General Family Medicine 12/31/13 05/09/18 Isidro Heredia MD Rheumatology 02/09/11 documented as of this encounter
--- OUTSIDE RECORDS SUMMARY | 2024-05-03 09:02 | XMS_ITS | Encounter Summary ---
Author Organization [facility] Address [address] [place] [address] Care Team Providers Care Head Of Design Name Role Phone Isidro Heredia MD Unavailable [phone] Tomas Hyman MD Primary Care Provider [phone] Encounter Details Date Type Department Care Team (Late Contact Info) Description 10/19/2017 Orders Only [facility] - Rheumatology [address] [place] [address] Isidro Heredia MD [address] [place] [address] Rheumatoid arthritis of multiple sites with [...] (Late Contact Info) Description 06/03/2024 1:00 PM ELEVATOR INSTALLER Appointment [facility] - Rheumatology [address] [place] [address] 06/03/2024 2:00 PM ELEVATOR INSTALLER Office Visit [facility] Rheumatology [address] [place] [address] Gloria Smith MD [address] [place] [address], [place] [address] documented as of this encounter Procedures Procedure [...] PM CDT 10/24/2017 Narrative Resulting Agency Comment [facility] [address] [facility] ??[facility] [phone] Isidro Heredia MD LAB - HEMATOLOGY OR DERABLES [facility] INSURANCE BILL [address] [place] [address] * (ABNORMAL) COMPREHENSIVE METABOLIC PANEL (10/24/2017 1:30 [...] CDT 10/24/2017 Narrative Resulting Agency Comment [facility] [address] [facility] ??[facility] [phone] Isidro Heredia MD LAB - CHEMISTRY ORD ERABLES [facility] INSURANCE BILL [address] [place] [address] * (ABNORMAL) CBC W AUTO DIFFERENTIAL (10/24/2017 [...] CDT 10/24/2017 Narrative Resulting Agency Comment [facility] [address] ??[facility] [phone] Isidor Heredia MD LAB - HEMATOLOGY OR DERABLES Performing Organization Address City/State/[facility] Co de Phone Number [facility] INSURANCE BILL [address] [place] [address] documented in this encounter Visit Diagnoses Diagnosis Rheumatoid arthritis of multiple sites with negative rheumatoid factor (HCC)- Primary documented in this encounter Care Teams Head Of Design Relationship Specialty Start Date End Date Tomas Hyman MD [address] [facility] [address] [place] [address] PCP - General Family Medicine 12/31/13 05/09/18 Isidro Heredia MD Rheumatology 02/09/11 documented as of this encounter
--- OUTSIDE RECORDS SUMMARY | 2024-05-03 09:02 | XMS_ITS | Encounter Summary ---
Author Organization [facility] Address [address] [facility] [place] [address] Care Team Providers Care Comic Book Designer Name Role Phone Isidro Heredia MD Unavailable [phone] Tomas Hyman MD Primary Care Provider [phone] Reason for Visit * Treatment (Routine) - Closed Specialty Diagnoses / Procedures Referred By Lawrence shah Referred To Contact Infusion Therapy Nurse Diagnoses Rheumatoid arthritis without rheumatoid factor, multiple sites (HCC) Procedures [place] INJECTION TOCILIZUMAB 1 MG Isidro Heredia MD [address] [place] [address] [address] Referral ID Status Reason Start Date Expiration Date Visits Re quested Visits Authorized [id number] Closed 08/07/2016 04/29/2017 1 12 Encounter Details Date Type Department Care Team (Late st Contact Info) Description 04/05/2017 2:03 PM REFRIGERATOR TESTER - 04/05/2017 11:59 PM REFRIGERATOR TESTER Hospital Encounter [facility] - Rheumatology [address] [place] [address] Isidro Heredia MD [address] [facility] [place] [address] Discharge Disposition: Home or Self [...] Comments Blood Pressure 163/90 04/05/2017 2:25 PM REFRIGERATOR TESTER Pulse 70 04/05/2017 2:25 PM REFRIGERATOR TESTER Temperature 37.2 ??C (99 ??F) 04/05/2017 2:25 PM REFRIGERATOR TESTER Respiratory Rate 18 04/05/2017 2:25 PM REFRIGERATOR TESTER Oxygen Saturation - - Inhaled Oxygen Concentration - - Weight 113.4 kg (250 lb) 04/05/2017 2:25 PM REFRIGERATOR TESTER Height - - Body Mass Index 35.87 01/11/2016 3:12 PM CDT documented in this encounter Discharge Instructions * Discharge Instructions* Jody Sahu RN - 04/05/2017 2:34 PM REFRIGERATOR TESTER [place] Rheumatology Post Infusion instructions You have [...] through Sunday 9-5 call the office at [phone] After hours or on the weekend call the exchange at [phone] If you have had lab work done [...] [facility] as your provider. Jody Sahu RN IGERATOR TESTER documented in this encounter Medications at [...] - 04/05/2017 2:49 PM CST JOSE Deng [id number] 04/05/2017 Diagnosis: Rheumatoid arthritis without rheumatoid factor, multiple sites [M06.09]. Pt denies symptoms of infection or antibiotic use, no open wounds, or recent surgery, or plans for surgery in the next couple of weeks. Pt is aware that we use the 0-10 pain scale to assess discomfort. 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 director of front office pt signs consent for treatment [...] Next treatment? 4 weeks Jody Sahu RN IGERATOR TESTER documented in this encounter Plan of Treatment Upcoming Encounters Date Type Department Care Team (Late st Contact Info) Description 06/03/2024 1:00 PM REFRIGERATOR TESTER Appointment [facility] - Rheumatology [address] [place] [address] 06/03/2024 2:00 PM REFRIGERATOR TESTER Office Visit [facility] - Rheumatology [address] [place] [address] Gloria Smith MD [address] [place] [phone] documented as of this encounter Visit Diagnoses [...] RT $ New Bag/Syringe 04/05/2017 2:45 PM REFRIGERATOR TESTER 800 mg 100 mL/hr documented in this encounter Care Teams Comic Book Designer Relationship Specialty Start Date End Date Tomas Hyman MD [address] [facility] [address] [place] [address] PCP - General Family Medicine 12/31/13 05/09/18 Isidro Heredia MD Rheumatology 02/09/11 documented as of this encounter
--- OUTSIDE RECORDS SUMMARY | 2024-05-03 09:02 | XMS_ITS | Encounter Summary ---
Author Organization [facility] Address [address] [place] [address] Care Team Providers Care Test Driver Name Role Phone Isidro Heredia MD Unavailable [phone] Tomas Hyman MD Primary Care Provider [phone] Reason for Visit * Treatment (Routine) - Closed Specialty Diagnoses / Procedures Referred By Lawrence shah Referred To Contact Infusion Therapy Nurse Diagnoses Rheumatoid arthritis without rheumatoid factor, multiple sites (HCC) Procedures [place] INJECTION TOCILIZUMAB 1 MG Isidro Heredia MD [address] [facility] [place] [address] [address] Referral ID Status Reason Start Date Expiration Date Visits Re quested Visits Authorized [id number] Closed 05/11/2017 04/29/2018 1 13 Encounter Details Date Type Department Care Team (Late st Contact Info) Description 11/21/2017 1:30 PM CDT - 11/21/2017 11:59 PM CDT Hospital Encounter [facility] Medical [facility] - Rheumatology [address] [place] [address] Isidro Heredia MD [address] [facility] [place] [address] Discharge Disposition: Home or Self [...] Sahu RN - 11/21/2017 2:[address] Rheumatology Post Infusion instructions You [...] Sunday through 01-02 call the office at [phone] After hours or on the weekend call the exchange at [phone] If you have had lab work done [...] - 11/21/2017 2:14 PM CDT JOSE Deng [id number] 11/21/2017 Diagnosis: Rheumatoid arthritis without rheumatoid factor, [...] st Contact Info) Description 06/03/2024 1:00 PM STRANDING MACHINE OPERATOR Appointment [facility] - Rheumatology [address] [place] [address] 06/03/2024 2:00 PM STRANDING MACHINE OPERATOR Office Visit [facility] - Rheumatology [address] [place] [address] Gloria Smith MD [address] [place] [address] documented as of this encounter Visit Diagnoses [...] mL/hr documented in this encounter Care Teams Test Driver Relationship Specialty Start Date End Date Tomas Hyman MD [address] [facility] [address] [place] [address] PCP - General Family Medicine 12/31/13 05/09/18 Isidro Heredia MD Rheumatology 02/09/11 documented as of this encounter
--- OUTSIDE RECORDS SUMMARY | 2024-05-03 09:02 | XMS_ITS | Encounter Summary ---
Author Organization [facility] Address [address] [facility] [place] [address] Care Team Providers Care Exchange Clerk Name Role Phone Isidro Heredia MD Unavailable [phone] Tomas Hyman MD Primary Care Provider [phone] Encounter Details Date Type Department Care Team (Late Contact Info) Description 06/12/2017 Orders Only [facility] - Rheumatology [address] [place] [address] Isidro Heredia MD [address] [place] [address] Rheumatoid arthritis involving multiple sites, unspecified [...] (Late Contact Info) Description 06/03/2024 1:00 PM SPORTING GOODS SALES ASSOCIATE Appointment [facility] - Rheumatology [address] [place] [address] 06/03/2024 2:00 PM SPORTING GOODS SALES ASSOCIATE Office Visit [facility] Rheumatology [address] [place] [address] Gloria Smith MD [address] [place], [place] [address], [place] [address] documented as of this encounter Procedures Procedure [...] CDT 08/01/2017 Narrative Resulting Agency Comment [facility] [address] [facility] ??[facility] [phone] Isidro Heredia MD LAB - HEMATOLOGY OR DERABLES [facility] INSURANCE BILL [address] [place] [address] * (ABNORMAL) COMPREHENSIVE METABOLIC PANEL (08/01/2017 1:00 [...] CDT 08/01/2017 Narrative Resulting Agency Comment [facility] [address] ??[facility] [phone] Isidro Heredia MD LAB - CHEMISTRY ORD ERABLES [facility] INSURANCE BILL [address] [place] [address] * (ABNORMAL) CBC W AUTO DIFFERENTIAL (08/01/2017 [...] CDT 08/01/2017 Narrative Resulting Agency Comment [facility] [address] [facility] ??[facility] [id number] Isidro Heredia MD LAB - HEMATOLOGY OR DERABLES [facility] INSURANCE BILL [address] [place] [address] documented in this encounter Visit Diagnoses Diagnosis Rheumatoid arthritis involving multiple sites, unspecified rheumatoid factor presence (HCC)- Primary documented in this encounter Care Teams Exchange Clerk Relationship Specialty Start Date End Date Tomas Hyman MD [address] [facility] [address] [place] [address] PCP - General Family Medicine 12/31/13 05/09/18 Isidro Heredia MD Rheumatology 02/09/11 documented as of this encounter
--- OUTSIDE RECORDS SUMMARY | 2024-05-03 09:02 | XMS_ITS | Encounter Summary ---
Author Organization [facility] Address [address] [place] [address] Care Team Providers Care Laser Engineer Name Role Phone Isidro Heredia MD Unavailable [phone] Tomas Hyman MD Primary Care Provider [phone] Encounter Details Date Type Department Care Team (Late Contact Info) Description 12/18/2017 Orders Only [facility] - Rheumatology [address] [place] [address] Isidro Heredia MD [address] [place] [address] Encounter for long-term (current) use of [...] (Late Contact Info) Description 06/03/2024 1:00 PM WIRE CHARGER Appointment [facility] - Rheumatology [address] [place] [address] 06/03/2024 2:00 PM WIRE CHARGER Office Visit [facility] Rheumatology [address] [place] [address] Song, Gloria, MD [address] [place], [place] [address], [place] [address] documented as of this encounter Procedures Procedure [...] CDT 12/19/2017 Narrative Resulting Agency Comment [facility] [address] ??[place] [phone] Isidro Heredia MD LAB - CHEMISTRY ORD ERABLES Performing Organization Address [facility] Co de Phone Number [facility] INSURANCE BILL [address] [place] [address] * ERYTHROCYTE SEDIMENTATION RATE (12/19/2017 1:00 PM CDT) Erythrocyte Sedimentation Rate Westergren 3 0 - 30 mm/hr [facility] INSURANCE BILL Blood BLOOD SPECIMEN / Unknown 12/19/2017 1:00 PM CDT 12/19/2017 Narrative Resulting Agency Comment [facility] [address] ??[place] [phone] Isidro Heredia MD LAB - HEMATOLOGY OR DERABLES Performing Organization Address [facility] Co de Phone Number [facility] INSURANCE BILL [address] [place] [address] * (ABNORMAL) COMPREHENSIVE METABOLIC PANEL (12/19/2017 1:00 [...] CDT 12/19/2017 Narrative Resulting Agency Comment [facility] [address] [facility] ??[facility] [phone] Isidro Heredia MD LAB - CHEMISTRY ORD ERABLES [facility] INSURANCE BILL [address] [place] [address] * (ABNORMAL) CBC WITH DIFFERENTIAL (12/19/2017 1:00 [...] CDT 12/19/2017 Narrative Resulting Agency Comment [facility] [address] [facility] ??[facility] [id number] Isidro Heredia MD LAB - HEMATOLOGY OR DERABLES [facility] INSURANCE BILL [address] [place] [address] documented in this encounter Visit Diagnoses Diagnosis Encounter for long-term (current) use of medications- Primary Encounter for long-term (current) use of other medications documented in this encounter Care Teams Laser Engineer Relationship Specialty Start Date End Date Tomas Hyman MD [address] [facility] [address] [place] [address] PCP - General Family Medicine 12/31/13 05/09/18 Isidro Heredia MD Rheumatology 02/09/11 documented as of this encounter
--- OUTSIDE RECORDS SUMMARY | 2024-05-03 09:02 | XMS_ITS | Encounter Summary ---
Author Organization [facility] Address [address] [facility] [place] [address] Care Team Providers Care Food Products Tester Name Role Phone Isidro Heredia MD Unavailable [phone] Tomas Hyman MD Primary Care Provider [phone] Reason for Visit * Reason Onset Date Comments MEDICATION REFILL 12/19/2017 Encounter Details Date Type Department Care Team (Late Contact Info) Description 12/19/2017 Refill [facility] Medical [facility] - Rheumatology [address] [place] [address] [phone] Isidro Heredia MD [address] [place] [address] MEDICATION REFILL Social History Tobacco Use [...] (Late Contact Info) Description 06/03/2024 1:00 PM VENEER PRESS OPERATOR Appointment [facility] - Rheumatology [address] [place] [address] 06/03/2024 2:00 PM VENEER PRESS OPERATOR Office Visit [facility] - Rheumatology [address] [place] [address] Gloria Smith MD [address] [place] [address] documented as of this encounter Visit Diagnoses Not on filedocumented in this encounter Care Teams Food Products Tester Relationship Specialty Start Date End Date Tomas Hyman MD [address] [place] [address] PCP - General Family Medicine 12/31/13 05/09/18 Isidro Heredia MD Rheumatology 02/09/11 documented as of this encounter
--- OUTSIDE RECORDS SUMMARY | 2024-05-03 09:02 | XMS_ITS | Encounter Summary ---
Author Organization [facility] Address [address] [facility] [place] [address] Care Team Providers Care Civil Division Deputy Sheriff Name Role Phone Isidro Heredia MD Unavailable [phone] Tomas Hyman MD Primary Care Provider Reason for Visit * Reason Comments Rheumatoid Arthritis Encounter Details Date Type Department Care Team (Late st Contact Info) Description 10/24/2017 2:30 PM CDT Office Visit [facility] - Rheumatology [address] [place] [address] Isidro Heredia MD [address] [place] [address] Chronic right-sided low back pain with [...] Medication Side Effects none Walking trails in [place] BP Readings from Last 2 Encounters: 10/24/17 [...] 1 Tab by mouth once daily ??? Qjnpvhmiogd-Wlrqmqbgy-Sge C-Mn (GLUCOSAMINE CHONDR 1500 COMPLX PO) Take [...] st Contact Info) Description 06/03/2024 1:00 PM PREMIUM NOTE INTEREST CALCULATOR CLERK Appointment [facility] - Rheumatology [address] [place] [address] 06/03/2024 2:00 PM PREMIUM NOTE INTEREST CALCULATOR CLERK Office Visit [facility] - Rheumatology [address] [place] [address] Gloria Smith MD [address] [place] [address] documented as of this encounter Visit Diagnoses Diagnosis Chronic right-sided low back pain with right-sided sciatica- Primary Rheumatoid arthritis of 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
--- OUTSIDE RECORDS SUMMARY | 2024-05-03 09:02 | XMS_ITS | Encounter Summary ---
Author Organization [facility] Address [address] [place] [address] Care Team Providers Care Network Field Engineer Name Role Phone Isidro Heredia MD Unavailable [phone] Tomas Hyman MD Primary Care Provider [phone] Reason for Visit * Treatment (Routine) - Closed Specialty Diagnoses / Procedures Referred By Lawrence shah Referred To Contact Infusion Therapy Nurse Diagnoses Rheumatoid arthritis without rheumatoid factor, multiple sites (HCC) Procedures [place] INJECTION TOCILIZUMAB 1 MG Isidro Heredia MD [address] [facility] [place] [address] [address] Referral ID Status Reason Start Date Expiration Date Visits Re quested Visits Authorized [id number] Closed 05/11/2017 04/29/2018 1 13 Encounter Details Date Type Department Care Team (Late st Contact Info) Description 12/19/2017 1:00 PM CDT - 12/19/2017 11:59 PM CDT Hospital Encounter [facility] Medical [facility] - Rheumatology [address] [place] [address] Isidro Heredia MD [address] [facility] [place] [address] Discharge Disposition: Home or Self [...] Christy RN - 12/19/2017 1:40 PM CDT [place] Rheumatology Post Infusion instructions You [...] Sunday through 01-02 call the office at [phone] After hours or on the weekend call the exchange at [phone] If you have had lab work done [...] [facility] as your provider. Jody Christy RN [...] - 12/19/2017 1:45 PM CDT JOSE Deng [id number] 12/19/2017 Diagnosis: Rheumatoid arthritis without rheumatoid factor, [...] st Contact Info) Description 06/03/2024 1:00 PM ALLERGIST/IMMUNOLOGIST Appointment [facility] - Rheumatology [address] [place] [address] 06/03/2024 2:00 PM ALLERGIST/IMMUNOLOGIST Office Visit [facility] - Rheumatology [address] [place], [place] [address] [address] Gloria Smith MD [address] [place] [address] [place] [phone] documented as of this encounter Visit Diagnoses [...] mL/hr documented in this encounter Care Teams Network Field Engineer Relationship Specialty Start Date End Date Tomas Hyman MD [address] [address] [address] [place] [address] PCP - General Family Medicine 12/31/13 05/09/18 Isidro Heredia MD Rheumatology 02/09/11 documented as of this encounter
--- OUTSIDE RECORDS SUMMARY | 2024-05-03 09:02 | XMS_ITS | Encounter Summary ---
Author Organization [facility] Address [address] [place] [address] Care Team Providers Care Melt Supervisor Name Role Phone Isidro Heredia MD Unavailable [phone] Tomas Hyman MD Primary Care Provider [phone] Reason for Visit * Reason Comments Refill Request Encounter Details Date Type Department Care Team (Late Contact Info) Description 07/25/2017 Refill [facility] - Rheumatology [address] [place] [address] Isidro Heredia MD [address] [place] [address] Refill Request Social History Tobacco Use [...] (Late Contact Info) Description 06/03/2024 1:00 PM CARD PLAYER Appointment [facility] - Rheumatology [address] [place] [address] 06/03/2024 2:00 PM CARD PLAYER Office Visit [facility] Rheumatology [address] [place] [address] Gloria Smith MD [address] [place] [address], [place] [address] documented as of this encounter Visit Diagnoses Not on filedocumented in this encounter Care Teams Melt Supervisor Relationship Specialty Start Date End Date Tomas Hyman MD [address] [place] [address] PCP - General Family Medicine 12/31/13 05/09/18 Isidro Heredia MD Rheumatology 02/09/11 documented as of this encounter
--- OUTSIDE RECORDS SUMMARY | 2024-05-03 09:02 | XMS_ITS | Encounter Summary ---
Author Organization [facility] Address [address] [facility] [place] [address] Care Team Providers Care Plant Technician/Control Room Operator Name Role Phone Isidro Heredia MD Unavailable [phone] Tomas Hyman MD Primary Care Provider [phone] Reason for Visit * Reason Comments Rheumatoid Arthritis Encounter Details Date Type Department Care Team (Late st Contact Info) Description 08/01/2017 2:15 PM CDT Office Visit [facility] - Rheumatology [address] [place] [address] Isidro Heredia MD [address] [place] [address] Abnormal LFTs (Primary Dx); Chronic right-sided [...] Progress Notes * Isidro Heredia MD - 08/01/2017 2:46 PM CDT Subjective: [...] 1 Tab by mouth once daily ??? Tocprybmkqs-Kmtjopnrh-Mcd C-Mn (GLUCOSAMINE CHONDR 1500 COMPLX PO) Take [...] cc's of tac with 1 cc 2% omonr7nqsq were injected in the right shoulder Triceps tendon . 0 cc's of synovial fluid were aspirated. Patient tolerated procedure well without complications. Plan: Plan Orders Placed This Encounter ??? MA DRAIN/INJECT LARGE JOINT/BURSA ??? oxyCODONE-acetaminophen (PERCOCET) 5-325 [...] st Contact Info) Description 06/03/2024 1:00 PM GUEST EXPERIENCE SPECIALIST Appointment [facility] - Rheumatology [address] [place] [address] [phone] 06/03/2024 2:00 PM GUEST EXPERIENCE SPECIALIST Office Visit [facility] - Rheumatology [address] [place] [address] Gloria Smith MD [address] [place] [address] documented as of this encounter Visit [...] Given 08/01/2017 3:31 PM CDT 80 mg Righ t Shoulder documented in this encounter Care Teams Plant Technician/Control Room Operator Relationship Specialty Start Date End Date Tomas Hyman MD [address] [place] [address] PCP - General Family Medicine 12/31/13 05/09/18 Isidro Heredia MD Rheumatology 02/09/11 documented as of this encounter
--- OUTSIDE RECORDS SUMMARY | 2024-05-03 09:02 | XMS_ITS | Encounter Summary ---
Author Organization [facility] Address [address] [facility] [place] [address] Care Team Providers Care Manufacturing Engineering Director Name Role Phone Isidro Heredia MD Unavailable [phone] Tomas Hyman MD Primary Care Provider [phone] Encounter Details Date Type Department Care Team (Late st Contact Info) Description 08/01/2017 Orders Only [facility] - Rheumatology [address] [place] [address] Isidro Heredia MD [address] [place] [address] Social History Tobacco Use Types Packs/Day [...] (Late Contact Info) Description 06/03/2024 1:00 PM OBSTETRICAL TECH Appointment [facility] - Rheumatology [address] [place] [address] 06/03/2024 2:00 PM OBSTETRICAL TECH Office Visit [facility] - Rheumatology [address] [place] [address] Gloria Smith MD [address] [place] [address] documented as of this encounter Procedures Procedure [...] CDT 08/01/2017 Narrative Resulting Agency Comment [facility] [address] ??[facility] [phone] Isidro Heredia MD LAB - HEMATOLOGY OR DERABLES [facility] INSURANCE BILL [address] [place] [address] * (ABNORMAL) COMPREHENSIVE METABOLIC PANEL (08/01/2017 1:00 [...] CDT 08/01/2017 Narrative Resulting Agency Comment [facility] [address] ??[facility] [phone] Isidro Heredia MD LAB - CHEMISTRY ORD ERABLES [facility] INSURANCE BILL [address] [place] [address] * (ABNORMAL) CBC W AUTO DIFFERENTIAL (08/01/2017 [...] CDT 08/01/2017 Narrative Resulting Agency Comment [facility] [place] [address] [facility] ??[facility] [phone] Isidro Heredia MD LAB - HEMATOLOGY OR DERABLES [facility] INSURANCE BILL [address] [place] [address] documented in this encounter Visit Diagnoses Not on filedocumented in this encounter Care Teams Manufacturing Engineering Director Relationship Specialty Start Date End Date Tomas Hyman MD [address] [place] [address] PCP - General Family Medicine 12/31/13 05/09/18 Isidro Heredia MD Rheumatology 02/09/11 documented as of this encounter
--- OUTSIDE RECORDS SUMMARY | 2024-05-03 09:02 | XMS_ITS | Encounter Summary ---
Author Organization [facility] Address [address] [facility] [place] [address] Care Team Providers Care Meat Service Team Member Name Role Phone Isidro Heredia MD Unavailable [phone] Tomas Hyman MD Primary Care Provider [phone] Reason for Visit * Treatment (Routine) - Closed Specialty Diagnoses / Procedures Referred By Lawrence shah Referred To Contact Infusion Therapy Nurse Diagnoses Rheumatoid arthritis without rheumatoid factor, multiple sites (HCC) Procedures [place] INJECTION TOCILIZUMAB 1 MG Isidro Herdeia MD [address] [facility] [place] [address] [address] Referral ID Status Reason Start Date Expiration Date Visits Re quested Visits Authorized [id number] Closed 05/11/2017 04/29/2018 1 13 Encounter Details Date Type Department Care Team (Late st Contact Info) Description 08/01/2017 12:53 PM CDT - 08/01/2017 11:59 PM CDT Hospital Encounter [facility] - Rheumatology [address] [place] [address] Isidro Heredia MD [address] [facility] [place] [place] [address] Discharge Disposition: Home or Self [...] Sahu RN - 08/01/2017 1:21 PM CDT [place] Rheumatology Post Infusion instructions [...] Sunday through 01-02 call the office at [phone] After hours or on the weekend call the exchange at [phone] If you have had lab work done [...] 08/01/2017 1:39 PM CDT JOSE Chalino Deng [id number] 08/01/2017 Diagnosis: Rheumatoid arthritis without rheumatoid factor, [...] Contact Info) Description 06/03/2024 1:00 PM NUCLEAR UNIT OPERATOR Appointment [facility] - Rheumatology [address] [place] [address] [phone] 06/03/2024 2:00 PM NUCLEAR UNIT OPERATOR Office Visit [facility] - Rheumatology [address] [place] [address] Gloria Smith MD [address] [place] [phone] documented as of this encounter Visit [...] mg documented in this encounter Care Teams Meat Service Team Member Relationship Specialty Start Date End Date Tomas Hyman MD [address] [facility] [address] [place] [address] PCP - General Family Medicine 12/31/13 05/09/18 Isidro Heredia MD Rheumatology 02/09/11 documented as of this encounter
--- OUTSIDE RECORDS SUMMARY | 2024-05-03 09:02 | XMS_ITS | Encounter Summary ---
Author Organization [facility] Address [address] [place] [address] Care Team Providers Care Wash House Supervisor Name Role Phone Isidro Heredia MD Unavailable [phone] Tomas Hyman MD Primary Care Provider [phone] Encounter Details Date Type Department Care Team (Late Contact Info) Description 08/27/2017 Orders Only [facility] - Rheumatology [address] [place] [address] Isidro Heredia MD [address] [place] [address] Encounter for long-term (current) use of [...] (Late Contact Info) Description 06/03/2024 1:00 PM MANAGED CARE PROVIDER Appointment [facility] - Rheumatology [address] [place] [address] 06/03/2024 2:00 PM MANAGED CARE PROVIDER Office Visit [facility] Rheumatology [address] [place] [address] Song, Gloria, MD [address] [place], [place] [address], [place] [address] documented as of this encounter Procedures Procedure [...] CDT 09/03/2017 Narrative Resulting Agency Comment [facility] [place] [address] ??[facility] [phone] Isidro Heredia MD LAB - CHEMISTRY ORD ERABLES [facility] INSURANCE BILL [address] [place] [address] documented in this encounter Visit Diagnoses Diagnosis Encounter for long-term (current) use of medications- Primary Encounter for long-term (current) use of other medications documented in this encounter Care Teams Wash House Supervisor Relationship Specialty Start Date End Date Tomas Hyman MD [address] [facility] [address] [place] [address] PCP - General Family Medicine 12/31/13 05/09/18 Isidro Heredia MD Rheumatology 02/09/11 documented as of this encounter
--- OUTSIDE RECORDS SUMMARY | 2024-05-03 09:02 | XMS_ITS | Encounter Summary ---
Author Organization [facility] Address [address] [place] [address] Care Team Providers Care Administrative Fellow Name Role Phone Isidro Heredia MD Unavailable [phone] Tomas Hyman MD Primary Care Provider Reason for Visit * Reason Comments Refill Request Encounter Details Date Type Department Care Team (Late Contact Info) Description 05/13/2017 Refill [facility] - Rheumatology [address] [place] [address] Isidro Heredia MD [address] [place] [address] Refill Request Social History Tobacco Use [...] (Late Contact Info) Description 06/03/2024 1:00 PM DISH NETWORK INSTALLER Appointment [facility] - Rheumatology [address] [place] [address] 06/03/2024 2:00 PM DISH NETWORK INSTALLER Office Visit [facility] Rheumatology [address] [place] [address] Gloria Smith MD [address] [place], [place] [address] [address] documented as of this encounter Visit Diagnoses Not on filedocumented in this encounter Care Teams Administrative Fellow Relationship Specialty Start Date End Date Tomas Hyman MD [address] [place] [address] PCP - General Family Medicine 12/31/13 05/09/18 Isidro Heredia MD Rheumatology 02/09/11 documented as of this encounter
--- OUTSIDE RECORDS SUMMARY | 2024-05-03 09:02 | XMS_ITS | Encounter Summary ---
Author Organization [facility] Address [address] [facility] [place] [address] Care Team Providers Care Jacker Name Role Phone Isidro Heredia MD Unavailable Tomas Hyman MD Primary Care Provider [phone] Reason for Visit * Reason Comments Refill Request Encounter Details Date Type Department Care Team (Late Contact Info) Description 04/21/2017 Refill [facility] - Rheumatology [address] [place] [address] Isidro Heredia MD [address] [place] [address] Refill Request Social History Tobacco Use [...] (Late Contact Info) Description 06/03/2024 1:00 PM STRAW HAT MACHINE OPERATOR Appointment [facility] - Rheumatology [address] [place] [address] 06/03/2024 2:00 PM STRAW HAT MACHINE OPERATOR Office Visit [facility] Rheumatology [address] [place] [address] Gloria Smith MD [address] [place], [place] [address], [place] [address] documented as of this encounter Visit Diagnoses Not on filedocumented in this encounter Care Teams Jacker Relationship Specialty Start Date End Date Tomas Hyman MD [address] [place] [address] PCP - General Family Medicine 12/31/13 05/09/18 Isidro Heredia MD Rheumatology 02/09/11 documented as of this encounter
--- OUTSIDE RECORDS SUMMARY | 2024-05-03 09:03 | XMS_ITS | Encounter Summary ---
Author Organization [facility] Address [address] [facility] [place] [address] Care Team Providers Care Numerologist Name Role Phone Isidro Heredia MD Unavailable [phone] Tomas Hyman MD Primary Care Provider [phone] Encounter Details Date Type Department Care Team (Latest Contact Info) Description 02/22/2017 10:13 AM CDT - 02/22/2017 11:59 PM CDT Hospital Encounter [facility] Pain Care [address] [place] [address] [place] [address] [place] [address] Discharge Disposition: Home or Self Care Social [...] Sierra RN - 02/22/2017 10:22 AM CDT [facility] Procedure Center Pain Discharge Instructions [...] headache, or any other problems, please call [phone] or after hours callDr. Mirza at [phone] and tell them your physician's name. The exchange will alert the physician batting machine operator insulation. If sedation is given: No sedation given. [...] Contact Info) Description 06/03/2024 1:00 PM RESIDENTIAL REAL ESTATE SALES MANAGER Appointment [facility] - Rheumatology [address] [place] [address] 06/03/2024 2:00 PM RESIDENTIAL REAL ESTATE SALES MANAGER Office Visit [facility] - Rheumatology [address] [place] [address] Gloria Smith MD [address] [place] [address] documented as of this encounter Procedures [...] ? Multiple Vitamin (MULTI-VITAMIN PO) ? ? Qbizbrgtyza-Nbknndrza-Qkh C-Mn (GLUCOSAMINE CHONDR 1500 COMPLX PO) ? [...] identified, and marked by Dr. Mirza. ??Responsible chuck wagon driver is not needed due to the [...] mg documented in this encounter Care Teams Numerologist Relationship Specialty Start Date End Date Tomas Hyman MD [address] [facility] [address] [place] [address] PCP - General Family Medicine 12/31/13 05/09/18 Isidro Heredia MD Rheumatology 02/09/11 documented as of this encounter
--- OUTSIDE RECORDS SUMMARY | 2024-05-03 09:03 | XMS_ITS | Encounter Summary ---
Author Organization [facility] Address [address] [facility] [place] [address] Care Team Providers Care Labor Economist Name Role Phone Isidro Heredia MD Unavailable [phone] Tomas Hyman MD Primary Care Provider [phone] Encounter Details Date Type Department Care Team (Latest Contact Info) Description 12/28/2016 11:22 AM CDT - 12/28/2016 11:59 PM CDT Hospital Encounter [facility] Pain Care [address] [place] [address] [place] [address] [place] [address] Discharge Disposition: Home or Self Care Social [...] Littlejohn RN - 12/28/2016 11:41 AM CDT [facility] Procedure Center Pain Discharge Instructions Selective [...] headache, or any other problems, please call [phone] or after hours callDr. Mirza at [phone] and tell them your physician's name. The exchange will alert the physician radiographer cardiac catheterization. If sedation is given: No sedation given. For Your Next Visit: No additional instructions. Other Instructions: May remove band-aid in 12 Hours. Return in 2 weeks for KIMBERLEY #3. documented in this encounter Medications at Time of Discharge Medication Sig Dispensed Refills Start Date End Date atorvastatin (LIPITOR) 40 MG tablet Take 1 (one) tablet by mouth at bedtime Mkvizgrmnnx-Ptrqinpic-Z it C-Mn (GLUCOSAMINE CHONDR 1500 COMPLX PO) [...] Coumadin, Plavix or other blood thinners. Responsible driver messenger is not needed due to the patient [...] st Contact Info) Description 06/03/2024 1:00 PM BRISKET PULLER Appointment [facility] - Rheumatology [address] [place] [address] [phone] 06/03/2024 2:00 PM BRISKET PULLER Office Visit [facility] - Rheumatology [address] [place] [address] [phone] Gloria Smith MD [address] [place] [phone] documented as of this encounter Procedures Procedure [...] Coumadin, Plavix or other blood thinners. ??Responsible driver messenger is not needed due to the patient [...] Back documented in this encounter Care Teams Labor Economist Relationship Specialty Start Date End Date Tomas Hyman MD [address] [facility] [address] [place] [address] PCP - General Family Medicine 12/31/13 05/09/18 Isidro Heredia MD Rheumatology 02/09/11 documented as of this encounter
--- OUTSIDE RECORDS SUMMARY | 2024-05-03 09:03 | XMS_ITS | Encounter Summary ---
Author Organization [facility] Address [address] [facility] [place] [address] Care Team Providers Care Refrigeration Mechanic Helper Name Role Phone Isidro Heredia MD Unavailable [phone] Tomas Hyman MD Primary Care Provider [phone] Reason for Visit * Reason Comments Follow-up Encounter Details Date Type Department Care Team (Late st Contact Info) Description 03/08/2017 2:15 PM SPECIAL EVENTS PLANNER Office Visit [facility] - Rheumatology [address] [place] [address] [phone] Isidro Heredia MD [address] [place] [address] Chronic right-sided low back pain with [...] Comments Blood Pressure 128/74 03/08/2017 2:37 PM SPECIAL EVENTS PLANNER Pulse 79 03/08/2017 2:37 PM SPECIAL EVENTS PLANNER Temperature - - Respiratory Rate - - Oxygen Saturation - - Inhaled Oxygen Concentration - - Weight 109.8 kg (242 lb) 03/08/2017 2:37 PM SPECIAL EVENTS PLANNER Height - - Body Mass Index 34.72 [...] 1 Tab by mouth once daily ??? Cqmrcpwqigg-Refzxyhhj-Lgn C-Mn (GLUCOSAMINE CHONDR 1500 COMPLX PO) Take [...] up in office in 4 weeks IAL EVENTS PLANNER documented in this encounter Plan of Treatment Upcoming Encounters Date Type Department Care Team (Late st Contact Info) Description 06/03/2024 1:00 PM SPECIAL EVENTS PLANNER Appointment [facility] - Rheumatology [address] [place] [address] 06/03/2024 2:00 PM SPECIAL EVENTS PLANNER Office Visit [facility] - Rheumatology [address] [place] [address] Gloria Smith MD [address] [place] [address] [place] [phone] documented as of this encounter Results * XR ANKLE BILAT 2 VIEWS (03/08/2017 4:07 PM SPECIAL EVENTS PLANNER) Anatomical Region Laterality Modality Ankle / Foot, Lower Extremity Ra diographic Imaging 03/08/2017 4:14 PM SPECIAL EVENTS PLANNER Impressions 03/08/2017 4:15 PM SPECIAL EVENTS PLANNER No fracture. Narrative 03/08/2017 4:15 PM SPECIAL EVENTS PLANNER Bilateral ankles 2 views INDICATION: Ankle pain [...] at 1715 $ Given 03/08/2017 4:47 PM SPECIAL EVENTS PLANNER 1 mL Right Shoulder triamcinolone acetonide (KENALOG-40) injection 80 mg 80 mg, Intra-articular, ONCE, 1 dose, On Gabriela 03/08/17 at 1715, Shake well before using. $ Given 03/08/2017 4:48 PM SPECIAL EVENTS PLANNER 80 mg Right Shoulder documented in this encounter Care Teams Refrigeration Mechanic Helper Relationship Specialty Start Date End Date Tomas Hyman MD [address] [place] [address] PCP - General Family Medicine 12/31/13 05/09/18 Isidro Heredia MD Rheumatology 02/09/11 documented as of this encounter
--- OUTSIDE RECORDS SUMMARY | 2024-05-03 09:03 | XMS_ITS | Encounter Summary ---
Author Organization [facility] Address [address] [facility] [place] [address] Care Team Providers Care Switch Box Installer Name Role Phone Isidro Heredia MD Unavailable [phone] Tomas Hyman MD Primary Care Provider [phone] Reason for Visit * Treatment (Routine) - Closed Specialty Diagnoses / Procedures Referred By Lawrence shah Referred To Contact Infusion Therapy Nurse Diagnoses Rheumatoid arthritis without rheumatoid factor, multiple sites (HCC) Procedures ND INJECTION TOCILIZUMAB 1 MG Isidro Heredia MD [address] [place] [address] [address] Referral ID Status Reason Start Date Expiration Date Visits Re quested Visits Authorized [id number] Closed 08/07/2016 04/29/2017 1 12 Encounter Details Date Type Department Care Team (Late st Contact Info) Description 11/23/2016 12:13 PM CDT - 11/23/2016 11:59 PM CDT Hospital Encounter [facility] Medical [facility] - Rheumatology [address] [place] [address] Isidro Heredia MD [address] [facility] [place] [address] Discharge Disposition: Home or Self [...] - 11/23/2016 1:49 PM CDT Discharge Instructions [facility] Rheumatology You [...] through Sunday 9-5 call the office at [phone]. After hours or on the weekend call [...] 1 (one) tablet by mouth at bedtime Easgwxmjprw-Ijrgnmvny-T it C-Mn (GLUCOSAMINE CHONDR 1500 COMPLX PO) [...] 11/23/2016 12:43 PM CDT JOSE Chalino Deng [id number] 11/23/2016 Diagnosis: Rheumatoid arthritis without rheumatoid factor, [...] st Contact Info) Description 06/03/2024 1:00 PM WOOD MILL SUPERVISOR Appointment [facility] - Rheumatology [address] [place], [place] [phone] 06/03/2024 2:00 PM WOOD MILL SUPERVISOR Office Visit [facility] - Rheumatology [address] [place] [address] Gloria Smith MD [address] [place] [phone] documented as of this encounter Visit Diagnoses [...] mg documented in this encounter Care Teams Switch Box Installer Relationship Specialty Start Date End Date Tomas Hyman MD [address] [facility] [address] [place] [address] PCP - General Family Medicine 12/31/13 05/09/18 Isidro Heredia MD Rheumatology 02/09/11 documented as of this encounter
--- OUTSIDE RECORDS SUMMARY | 2024-05-03 09:03 | XMS_ITS | Encounter Summary ---
Author Organization [facility] Address [address] [place] [address] Care Team Providers Care Director Of Business Applications Name Role Phone Isidro Heredia MD Unavailable [phone] Tomas Hyman MD Primary Care Provider [phone] Encounter Details Date Type Department Care Team (Late st Contact Info) Description 04/03/2017 Orders Only [facility] Medical [facility] - Rheumatology [address] [place] [address] [phone] Isidro Heredia MD [address] [place] [address] Rheumatoid arthritis involving multiple sites, unspecified [...] 3:52 PM CST Sent via my chart NESS INTELLIGENCE ARCHITECT * Isidro Heredia MD - 04/08/2017 10:07 PM CST [facility] [place] [facility] NESS INTELLIGENCE ARCHITECT documented in this encounter Plan of Treatment Upcoming Encounters Date Type Department Care Team (Late st Contact Info) Description 06/03/2024 1:00 PM BUSINESS INTELLIGENCE ARCHITECT Appointment [facility] - Rheumatology [address] [place] [address] [phone] 06/03/2024 2:00 PM BUSINESS INTELLIGENCE ARCHITECT Office Visit [facility] - Rheumatology [address] [place] [address] Gloria Smith MD [address] [place] [phone] documented as of this encounter Procedures Procedure Name Priority Date/Time Associated Diagnosis Comments ERYTHROCYTE SEDIMENTATION RATE Routine 04/05/2017 2:30 PM BUSINESS INTELLIGENCE ARCHITECT Rheumatoid arthritis involving multiple sites, unspecified rheumatoid factor presence CBC W AUTO DIFFERENTIAL Routine 04/05/2017 2:30 PM BUSINESS INTELLIGENCE ARCHITECT Rheumatoid arthritis involving multiple sites, unspecified rheumatoid factor presence COMPREHENSIVE METABOLIC PANEL Routine 04/05/2017 2:30 PM BUSINESS INTELLIGENCE ARCHITECT Rheumatoid arthritis involving multiple sites, unspecified rheumatoid factor presence documented in this encounter Results * ERYTHROCYTE SEDIMENTATION RATE (04/05/2017 2:30 PM BUSINESS INTELLIGENCE ARCHITECT) Erythrocyte Sedimentation Rate Westergren 4 0 - 30 mm/hr [facility] INSURANCE BILL Blood BLOOD SPECIMEN / Unknown 04/05/2017 2:30 PM BUSINESS INTELLIGENCE ARCHITECT 04/05/2017 Narrative Resulting Agency Comment [facility] [address] [facility] [id number] Isidro Heredia MD LAB - HEMATOLOGY OR DERABLES [facility] INSURANCE BILL [address] [place] [address] * (ABNORMAL) COMPREHENSIVE METABOLIC PANEL (04/05/2017 2:30 PM BUSINESS INTELLIGENCE ARCHITECT) Glucose 100(H) 65 - 99 mg/dL [facility] [...] BLOOD SPECIMEN / Unknown 04/05/2017 2:30 PM BUSINESS INTELLIGENCE ARCHITECT 04/05/2017 Narrative Resulting Agency Comment [facility] ??[facility] [id number] Isidro Heredia MD LAB - CHEMISTRY ORD ERABLES [facility] INSURANCE BILL [address] [place] [address] * (ABNORMAL) CBC W AUTO DIFFERENTIAL (04/05/2017 2:30 PM BUSINESS INTELLIGENCE ARCHITECT) WBC 6.9 3.4 - 10.8 x10E3/uL [facility] [...] BLOOD SPECIMEN / Unknown 04/05/2017 2:30 PM BUSINESS INTELLIGENCE ARCHITECT 04/05/2017 Narrative Resulting Agency Comment [facility] [address] [place] [address] ??[facility] [id number] Isidro Heredia MD LAB - HEMATOLOGY OR DERABLES [facility] INSURANCE BILL [address] [place] [address] documented in this encounter Visit Diagnoses Diagnosis Rheumatoid arthritis involving multiple sites, unspecified rheumatoid factor presence (HCC)- Primary documented in this encounter Care Teams Director Of Business Applications Relationship Specialty Start Date End Date Tomas Hyman MD [address] [place] [address] PCP - General Family Medicine 12/31/13 05/09/18 Isidro Heredia MD Rheumatology 02/09/11 documented as of this encounter
--- OUTSIDE RECORDS SUMMARY | 2024-05-03 09:03 | XMS_ITS | Encounter Summary ---
Author Organization [facility] Address [address] [facility] [place] [address] Care Team Providers Care Airplane Technician Name Role Phone Isidro Heredia MD Unavailable [phone] Tomas Hyman MD Primary Care Provider [phone] Reason for Visit * Reason Comments Refill Request Encounter Details Date Type Department Care Team (Late Contact Info) Description 12/23/2016 Refill [facility] - Rheumatology [address] [place] [address] Isidro Heredia MD [address] [place] [address] Refill Request Social History Tobacco Use [...] (Late Contact Info) Description 06/03/2024 1:00 PM OFFSET LITHOGRAPHIC PRESS OPERATOR Appointment [facility] - Rheumatology [address] [place] [address] 06/03/2024 2:00 PM OFFSET LITHOGRAPHIC PRESS OPERATOR Office Visit [facility] Rheumatology [address] [place] [address] Gloria Smith MD [address] [place], [place] [address] [address] documented as of this encounter Visit Diagnoses Not on filedocumented in this encounter Care Teams Airplane Technician Relationship Specialty Start Date End Date Tomas Hyman MD [address] [place] [address] PCP - General Family Medicine 12/31/13 05/09/18 Isidro Heredia MD Rheumatology 02/09/11 documented as of this encounter
--- OUTSIDE RECORDS SUMMARY | 2024-05-03 09:03 | XMS_ITS | Encounter Summary ---
Author Organization [facility] Address [address] [place] [address] Care Team Providers Care Supply Controller Name Role Phone Isidro Heredia MD Unavailable [phone] Tomas Hyman MD Primary Care Provider [phone] Reason for Visit * Treatment (Routine) - Closed Specialty Diagnoses / Procedures Referred By Lawrence shah Referred To Contact [place] [address] [address] [facility] Pain Care [address] [place] [address] Referral ID Status Reason Start Date Expiration Date Visits Re quested Visits Authorized [id number] Closed 12/21/2016 06/19/2017 1 3 Encounter Details Date Type Department Care Team (Latest Contact Info) Description 02/22/2017 10:11 AM CDT - 02/22/2017 10:12 AM CDT Hospital Encounter [facility] Health Pain Care [address] [place] [address] [place] [address] [address] Discharge Disposition: Home or [...] st Contact Info) Description 06/03/2024 1:00 PM MIXED LIVESTOCK FARMER Appointment [facility] - Rheumatology [address] [place] [address] [phone] 06/03/2024 2:00 PM MIXED LIVESTOCK FARMER Office Visit [facility] - Rheumatology [address] [place] [address] Gloria Smith MD [address] [place] [phone] documented as of this encounter Visit Diagnoses Not on filedocumented in this encounter Care Teams Supply Controller Relationship Specialty Start Date End Date Tomas Hyman MD [address] [facility] [address] [place] [address] PCP - General Family Medicine 12/31/13 05/09/18 Isidro Heredia MD Rheumatology 02/09/11 documented as of this encounter
--- OUTSIDE RECORDS SUMMARY | 2024-05-03 09:03 | XMS_ITS | Encounter Summary ---
Author Organization [facility] Address [address] [facility] [place] [address] Care Team Providers Care Aircraft Pneudraulic Systems Mechanic Name Role Phone Isidro Heredia MD Unavailable [phone] Tomas Hyman MD Primary Care Provider [phone] Reason for Visit * Treatment (Routine) - Closed Specialty Diagnoses / Procedures Referred By Lawrence shah Referred To Contact Infusion Therapy Nurse Diagnoses Rheumatoid arthritis without rheumatoid factor, multiple sites (HCC) Procedures [place] INJECTION TOCILIZUMAB 1 MG Isidro Heredia MD [address] [facility] [place] [place] [address] [phone] Referral ID Status Reason Start Date Expiration Date Visits Re quested Visits Authorized [id number] Closed 08/07/2016 04/29/2017 1 12 Encounter Details Date Type Department Care Team (Late st Contact Info) Description 01/04/2017 2:00 PM CDT - 01/04/2017 11:59 PM CDT Hospital Encounter [facility] Medical [facility] - Rheumatology [address] [place] [address] Isidro Heredia MD [address] [facility] [place] [address] Discharge Disposition: Home or Self [...] Sahu RN - 01/04/2017 2:26 PM CDT [facility] Rheumatology Post Infusion instructions [...] Sunday through 01-02 call the office at [phone] After hours or on the weekend call the exchange at [phone] If you have had lab work done [...] - 01/04/2017 2:40 PM CDT JOSE Deng [id number] 01/04/2017 Diagnosis: Rheumatoid arthritis without rheumatoid factor, [...] Info) Description 06/03/2024 1:00 PM BUSINESS INTELLIGENCE DEVELOPER Appointment [facility] - Rheumatology [address] [place] [address] [phone] 06/03/2024 2:00 PM BUSINESS INTELLIGENCE DEVELOPER Office Visit [facility] - Rheumatology [address] [place] [address] Gloria Smith MD [address] [place] [phone] documented as of this encounter Visit [...] mg documented in this encounter Care Teams Aircraft Pneudraulic Systems Mechanic Relationship Specialty Start Date End Date Tomas Hyman MD [address] [facility] [address] [place] [address] PCP - General Family Medicine 12/31/13 05/09/18 Isidro Heredia MD Rheumatology 02/09/11 documented as of this encounter
--- OUTSIDE RECORDS SUMMARY | 2024-05-03 09:03 | XMS_ITS | Encounter Summary ---
Author Organization [facility] Address [address] [facility] [place] [address] Care Team Providers Care Quality Control Director Name Role Phone Isidro Heredia MD Unavailable [phone] Tomas Hyman MD Primary Care Provider [phone] Reason for Visit * Reason Comments Refill Request Encounter Details Date Type Department Care Team (Late Contact Info) Description 03/19/2017 Refill [facility] - Rheumatology [address] [place] [address] Isidro Heredia MD [address] [place] [address] Refill Request Social History Tobacco Use [...] (Late Contact Info) Description 06/03/2024 1:00 PM RN MEDICAL SURGICAL Appointment [facility] - Rheumatology [address] [place] [address] 06/03/2024 2:00 PM RN MEDICAL SURGICAL Office Visit [facility] Rheumatology [address] [place] [address] Gloria Smith MD [address] [place], [place] [address], [place] [address] documented as of this encounter Visit Diagnoses Not on filedocumented in this encounter Care Teams Quality Control Director Relationship Specialty Start Date End Date Tomas Hyman MD [address] [place] [address] PCP - General Family Medicine 12/31/13 05/09/18 Isidro Heredia MD Rheumatology 02/09/11 documented as of this encounter
--- OUTSIDE RECORDS SUMMARY | 2024-05-03 09:03 | XMS_ITS | Encounter Summary ---
Author Organization [facility] Address [address] [facility] [place] [address] Care Team Providers Care Motor Builder Winder Name Role Phone Isidro Heredia MD Unavailable [phone] Tomas Hyman MD Primary Care Provider [phone] Reason for Visit * Reason Comments Refill Request Encounter Details Date Type Department Care Team (Late Contact Info) Description 11/18/2016 Refill [facility] - Rheumatology [address] [place] [address] Isidro Heredia MD [address] [place] [address] Refill Request Social History Tobacco Use [...] (Late Contact Info) Description 06/03/2024 1:00 PM CLIENT RELATIONS SPECIALIST Appointment [facility] - Rheumatology [address] [place] [address] 06/03/2024 2:00 PM CLIENT RELATIONS SPECIALIST Office Visit [facility] Rheumatology [address] [place] [address] Gloria Smith MD [address] [place], [place] [address] [address] documented as of this encounter Visit Diagnoses Not on filedocumented in this encounter Care Teams Motor Builder Winder Relationship Specialty Start Date End Date Tomas Hyman MD [address] [place] [address] PCP - General Family Medicine 12/31/13 05/09/18 Isidro Heredia MD Rheumatology 02/09/11 documented as of this encounter
--- OUTSIDE RECORDS SUMMARY | 2024-05-03 09:03 | XMS_ITS | Encounter Summary ---
Author Organization [facility] Address [address] [facility] [place] [address] Care Team Providers Care Perl Programmer Name Role Phone Isidro Heredia MD Unavailable Tomas Hyman MD Primary Care Provider [phone] Reason for Visit * Reason Comments Follow-up Encounter Details Date Type Department Care Team (Late st Contact Info) Description 11/23/2016 1:30 PM CDT Office Visit [facility] - Rheumatology [address] [place] [address] Isidro Heredia MD [address] [place] [address] Rheumatoid arthritis of multiple sites with [...] 1 Tab by mouth once daily ??? 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
--- OUTSIDE RECORDS SUMMARY | 2024-05-03 09:03 | XMS_ITS | Encounter Summary ---
Author Organization [facility] Address [address] [place] [address] Care Team Providers Care Retail Sales Merchandiser Name Role Phone Isidro Heredia MD Unavailable [phone] Tomas Hyman MD Primary Care Provider [phone] Reason for Visit * Reason Onset Date Comments Infusion 10/23/2016 Encounter Details Date Type Department Care Team (Late st Contact Info) Description 10/23/2016 Telephone [facility] Medical [facility] - Rheumatology [address] [place] [address] Isidro Heredia MD [address] [place] [address] Infusion Social History Tobacco Use Types [...] st Contact Info) Description 06/03/2024 1:00 PM ELECTRONIC COMMUNICATIONS TECHNICIAN Appointment [facility] - Rheumatology [address] [place] [address] 06/03/2024 2:00 PM ELECTRONIC COMMUNICATIONS TECHNICIAN Office Visit [facility] - Rheumatology [address] [place] [address] Gloria Smith MD [address] [place] [phone] documented as of this encounter Visit Diagnoses Not on filedocumented in this encounter Care Teams Retail Sales Merchandiser Relationship Specialty Start Date End Date Tomas Hyman MD [address] [facility] [address] [place] [address] PCP - General Family Medicine 12/31/13 05/09/18 Isidro Heredia MD Rheumatology 02/09/11 documented as of this encounter
--- OUTSIDE RECORDS SUMMARY | 2024-05-03 09:03 | XMS_ITS | Encounter Summary ---
Author Organization [facility] Address [address] [facility] [place] [address] Care Team Providers Care Barrel Handler Name Role Phone Isidro Heredia MD Unavailable [phone] Tomas Hyman MD Primary Care Provider [phone] Encounter Details Date Type Department Care Team (Latest Contact Info) Description 12/21/2016 10:15 AM CDT - 12/21/2016 11:59 PM CDT Hospital Encounter [facility] Pain Care [address] [place] [address] [place] [address] [place] [address] Discharge Disposition: Home or Self Care Social [...] Henao RN - 12/21/2016 10:[address] [facility] Pain Discharge Instructions Selective Epidural [...] headache, or any other problems, please call [phone] or after hours callDr. Mirza at [phone] and tell them your physician's name. The exchange will alert the physician makeup sales consultant. If sedation is given: No sedation given. For Your Next Visit: No additional instructions. Other Instructions: May remove band-aid in 12 Hours. Return KIMBERLEY 2 in 1 week. documented in this encounter Medications at Time of Discharge Medication Sig Dispensed Refills Start Date End Date atorvastatin (LIPITOR) 40 MG tablet Take 1 (one) tablet by mouth at bedtime Plypeklbyqp-Gckaoxsjb-X it C-Mn (GLUCOSAMINE CHONDR 1500 COMPLX PO) [...] Coumadin, Plavix or other blood thinners. Responsible trolley coach driver is not needed due to the [...] st Contact Info) Description 06/03/2024 1:00 PM MILLED RUBBER TENDER Appointment [facility] - Rheumatology [address] [place] [address] 06/03/2024 2:00 PM MILLED RUBBER TENDER Office Visit [facility] - Rheumatology [address] [place] [address] Gloria Smith MD [address] [place] [phone] documented as of this encounter Procedures [...] Coumadin, Plavix or other blood thinners. ??Responsible trolley coach driver is not needed due to the [...] mg documented in this encounter Care Teams Barrel Handler Relationship Specialty Start Date End Date Tomas Hyman MD [address] [place] [address] PCP - General Family Medicine 12/31/13 05/09/18 Isidro Heredia MD Rheumatology 02/09/11 documented as of this encounter
--- OUTSIDE RECORDS SUMMARY | 2024-05-03 09:03 | XMS_ITS | Encounter Summary ---
Author Organization [facility] Address [address] [facility] [place] [address] Care Team Providers Care Child Welfare Specialist Name Role Phone Isidro Heredia MD Unavailable [phone] Tomas Hyman MD Primary Care Provider [phone] Reason for Visit * Reason Comments Refill Request Encounter Details Date Type Department Care Team (Late Contact Info) Description 12/16/2016 Refill [facility] - Rheumatology [address] [place] [address] Isidro Heredia MD [address] [place] [address] Refill Request Social History Tobacco Use [...] (Late Contact Info) Description 06/03/2024 1:00 PM FUSING MACHINE OPERATOR Appointment [facility] - Rheumatology [address] [place] [address] 06/03/2024 2:00 PM FUSING MACHINE OPERATOR Office Visit [facility] Rheumatology [address] [place] [address] Gloria Smith MD [address] [place], [place] [address] [address] documented as of this encounter Visit Diagnoses Not on filedocumented in this encounter Care Teams Child Welfare Specialist Relationship Specialty Start Date End Date Tomas Hyman MD [address] [place] [address] PCP - General Family Medicine 12/31/13 05/09/18 Isidro Heredia MD Rheumatology 02/09/11 documented as of this encounter
--- OUTSIDE RECORDS SUMMARY | 2024-05-03 09:03 | XMS_ITS | Encounter Summary ---
Author Organization [facility] Address [address] [place] [address] Care Team Providers Care Marketing Program Coordinator Name Role Phone Isidro Heredia MD Unavailable [phone] Tomas Hyman MD Primary Care Provider [phone] Reason for Visit * Treatment (Routine) - Closed Specialty Diagnoses / Procedures Referred By Lawrence shah Referred To Contact [place] [id number] [address] [facility] Pain Care [address] [place] [address] Referral ID Status Reason Start Date Expiration Date Visits Re quested Visits Authorized [id number] Closed 03/01/2017 08/28/2017 1 3 Encounter Details Date Type Department Care Team (Latest Contact Info) Description 03/01/2017 10:03 AM CDT - 03/01/2017 10:04 AM CDT Hospital Encounter [facility] Health Pain Care [address] [place] [address] [place] [address] [address] Discharge Disposition: Home or Self [...] st Contact Info) Description 06/03/2024 1:00 PM DISTRICT REPRESENTATIVE Appointment [facility] - Rheumatology [address] [place] [address] [phone] 06/03/2024 2:00 PM DISTRICT REPRESENTATIVE Office Visit [facility] - Rheumatology [address] [place] [address] Gloria Smith MD [address] [place] [phone] documented as of this encounter Visit Diagnoses Not on filedocumented in this encounter Care Teams Marketing Program Coordinator Relationship Specialty Start Date End Date Tomas Hyman MD [address] [facility] [address] [place] [address] PCP - General Family Medicine 12/31/13 05/09/18 Isidro Heredia MD Rheumatology 02/09/11 documented as of this encounter
--- OUTSIDE RECORDS SUMMARY | 2024-05-03 09:03 | XMS_ITS | Encounter Summary ---
Author Organization [facility] Address [address] [place] [address] Care Team Providers Care Deicer Inspector Pneumatic Name Role Phone Isidro Heredia MD Unavailable [phone] Tomas Hyman MD Primary Care Provider [phone] Reason for Visit * Treatment (Routine) - Closed Specialty Diagnoses / Procedures Referred By Lawrence shah Referred To Contact Infusion Therapy Nurse Diagnoses Rheumatoid arthritis without rheumatoid factor, multiple sites (HCC) Procedures ME INJECTION TOCILIZUMAB 1 MG Isidro Heredia MD [address] [place] [address] [phone] Referral ID Status Reason Start Date Expiration Date Visits Re quested Visits Authorized [id number] Closed 08/07/2016 04/29/2017 1 12 Encounter Details Date Type Department Care Team (Late st Contact Info) Description 03/08/2017 1:30 PM BALL THREAD MACHINE TENDER - 03/08/2017 3:55 PM BALL THREAD MACHINE TENDER Hospital Encounter [facility] Medical [facility] - Rheumatology [address] [place] [address] Isidro Heredia MD [address] [place] [address] Discharge Disposition: Home or [...] Comments Blood Pressure 128/74 03/08/2017 1:59 PM BALL THREAD MACHINE TENDER Pulse 79 03/08/2017 1:59 PM BALL THREAD MACHINE TENDER Temperature 36.7 ??C (98.1 ??F) 03/08/2017 1:59 PM CS T Respiratory Rate 16 03/08/2017 1:59 PM BALL THREAD MACHINE TENDER Oxygen Saturation - - Inhaled Oxygen Concentration - - Weight 109.8 kg (242 lb) 03/08/2017 1:59 PM BALL THREAD MACHINE TENDER Height - - Body Mass Index 34.72 01/11/2016 3:12 PM CDT documented in this encounter Discharge Instructions * Discharge Instructions* Jody Sahu RN - 03/08/2017 2:04 PM BALL THREAD MACHINE TENDER [place] [facility] Post Infusion instructions You have [...] Sunday through 01-02 call the office at [phone] After hours or on the weekend call the exchange at [phone] If you have had lab work done [...] Center as your provider. Jody Sahu RN THREAD MACHINE TENDER documented in this encounter Medications [...] - 03/08/2017 2:26 PM CST JOSE Deng [id number] 03/08/2017 Diagnosis: Rheumatoid arthritis without rheumatoid factor, [...] Next treatment? 4 weeks Jody Sahu RN THREAD MACHINE TENDER documented in this encounter Plan of Treatment Upcoming Encounters Date Type Department Care Team (Late st Contact Info) Description 06/03/2024 1:00 PM BALL THREAD MACHINE TENDER Appointment [facility] - Rheumatology [address] [place] [address] 06/03/2024 2:00 PM BALL THREAD MACHINE TENDER Office Visit [facility] - Rheumatology [address] [place] [address] Gloria Smith MD [address] [place] [phone] documented as of this encounter Visit Diagnoses [...] RT $ New Bag/Syringe 03/08/2017 2:15 PM BALL THREAD MACHINE TENDER 800 mg 100 mL/hr documented in this encounter Care Teams Deicer Inspector Pneumatic Relationship Specialty Start Date End Date Tomas Hyman MD [address] [facility] [address] [place] [address] PCP - General Family Medicine 12/31/13 05/09/18 Isidro Heredia MD Rheumatology 02/09/11 documented as of this encounter
--- OUTSIDE RECORDS SUMMARY | 2024-05-03 09:03 | XMS_ITS | Encounter Summary ---
Author Organization [facility] Address [address] [facility] [place] [address] Care Team Providers Care Biodiesel Product Development Manager Name Role Phone Isidro Heredia MD Unavailable [phone] Tomas Hyman MD Primary Care Provider [phone] Reason for Visit * Reason Onset Date Comments MEDICATION REFILL 11/24/2016 Encounter Details Date Type Department Care Team (Late Contact Info) Description 11/24/2016 Refill [facility] - Rheumatology [address] [place] [address] Isidro Heredia MD [address] [place] [address] MEDICATION REFILL Social History Tobacco Use [...] (Late Contact Info) Description 06/03/2024 1:00 PM SALES ADMINISTRATION SPECIALIST Appointment [facility] - Rheumatology [address] [place] [address] 06/03/2024 2:00 PM SALES ADMINISTRATION SPECIALIST Office Visit [facility] - Rheumatology [address] [place] [address] Gloria Smith MD [address] [place] [id number] documented as of this encounter Visit Diagnoses Not on filedocumented in this encounter Care Teams Biodiesel Product Development Manager Relationship Specialty Start Date End Date Tomas Hyman MD [address] [place] [address] PCP - General Family Medicine 12/31/13 05/09/18 Isidro Heredia MD Rheumatology 02/09/11 documented as of this encounter
--- OUTSIDE RECORDS SUMMARY | 2024-05-03 09:03 | XMS_ITS | Encounter Summary ---
Author Organization [facility] Address [address] [facility] [place] [address] Care Team Providers Care Wood Pattern Maker Name Role Phone Isidro Heredia MD Unavailable [phone] Tomas Hyman MD Primary Care Provider [phone] Encounter Details Date Type Department Care Team (Late st Contact Info) Description 03/08/2017 3:56 PM RIVET PASSER - 03/08/2017 11:59 PM [facility] Hospital Encounter [facility] - Medical Imaging [address] [place] [address] Isidro Heredia MD [address] [place] [address] Discharge Disposition: Home or Self Care [...] st Contact Info) Description 06/03/2024 1:00 PM RIVET PASSER Appointment [facility] - Rheumatology [address] [place] [address] [phone] 06/03/2024 2:00 PM RIVET PASSER Office Visit [facility] - Rheumatology [address] [place] [address] [phone] Gloria Smith MD [address] [place] [phone] documented as of this encounter Procedures Procedure Name Priority Date/Time Associated Diagnosis Comments XR ANKLE BILAT 2VW Routine 03/08/2017 4: 07 PM RIVET PASSER Chronic pain syndrome documented in this encounter Results * XR ANKLE BILAT 2 VIEWS (03/08/2017 4:07 PM RIVET PASSER) Anatomical Region Laterality Modality Ankle / Foot, Lower Extremity Ra diographic Imaging 03/08/2017 4:14 PM RIVET PASSER Impressions 03/08/2017 4:15 PM RIVET PASSER No fracture. Narrative 03/08/2017 4:15 PM RIVET PASSER Bilateral ankles 2 views INDICATION: Ankle pain [...] syndrome documented in this encounter Care Teams Wood Pattern Maker Relationship Specialty Start Date End Date Tomas Hyman MD [address] [place] [address] PCP - General Family Medicine 12/31/13 05/09/18 Isidro Heredia MD Rheumatology 02/09/11 documented as of this encounter
--- OUTSIDE RECORDS SUMMARY | 2024-05-03 09:03 | XMS_ITS | Encounter Summary ---
Author Organization [facility] Address [address] [facility] [place] [address] Care Team Providers Care Historiography Professor Name Role Phone Isidro Heredia MD Unavailable [phone] Tomas Hyman MD Primary Care Provider [phone] Encounter Details Date Type Department Care Team (Late Contact Info) Description 11/22/2016 Orders Only [facility] - Rheumatology [address] [place] [address] Isidro Heredia MD [address] [place] [address] Rheumatoid arthritis involving multiple sites, unspecified [...] Contact Info) Description 06/03/2024 1:00 PM ORACLE DATABASE ADMINISTRATOR Appointment [facility] - Rheumatology [address] [place] [address] 06/03/2024 2:00 PM ORACLE DATABASE ADMINISTRATOR Office Visit [facility] - Rheumatology [address] [place] [address] Gloria Smith MD [address] [place] [phone] documented as of this encounter Procedures Procedure [...] PM CDT 11/23/2016 Narrative Resulting Agency Comment [facility] [address] ??[place] [phone] Isidro Heredia MD LAB - CHEMISTRY ORD ERABLES Performing Organization Address City/[facility]/ZIP Co de Phone Number [facility] INSURANCE BILL [address] [place] [address] * [facility] (11/23/2016 12:30 PM CDT) Erythrocyte Sedimentation Rate Westergren 12 0 - 30 mm/hr [facility] INSURANCE BILL Blood BLOOD SPECIMEN / Unknown 11/23/2016 12:30 PM CDT 11/23/2016 Narrative Resulting Agency Comment [facility] [address] ??[place] [phone] Isidro Heredia MD LAB - HEMATOLOGY OR DERABLES Performing Organization Address City/[facility] Co de Phone Number [facility] INSURANCE BILL [address] [place] [address] * (ABNORMAL) COMPREHENSIVE METABOLIC PANEL (11/23/2016 12:30 [...] CDT 11/23/2016 Narrative Resulting Agency Comment [facility] [address] ??[facility] [phone] Isidro Heredia MD LAB - CHEMISTRY ORD ERABLES [facility] INSURANCE BILL [address] [place] [address] * (ABNORMAL) CBC W AUTO DIFFERENTIAL (11/23/2016 [...] CDT 11/23/2016 Narrative Resulting Agency Comment [facility] [address] ??[facility] [phone] Isidro Heredia MD LAB - HEMATOLOGY OR DERABLES [facility] INSURANCE BILL [address] [place] [address] documented in this encounter Visit Diagnoses Diagnosis Rheumatoid arthritis involving multiple sites, unspecified rheumatoid factor presence (HCC)- Primary Hyperlipidemia, unspecified hyperlipidemia type documented in this encounter Care Teams Historiography Professor Relationship Specialty Start Date End Date Tomas Hyman MD [address] [facility] [address] [place] [address] PCP - General Family Medicine 12/31/13 05/09/18 Isidro Heredia MD Rheumatology 02/09/11 documented as of this encounter
--- OUTSIDE RECORDS SUMMARY | 2024-05-03 09:03 | XMS_ITS | Encounter Summary ---
Author Organization [facility] Address [address] [facility] [place] [address] Care Team Providers Care Tumor Registrar Name Role Phone Isidro Heredia MD Unavailable [phone] Tomas Hyman MD Primary Care Provider [phone] Reason for Visit * Treatment (Routine) - Closed Specialty Diagnoses / Procedures Referred By Lawrence shah Referred To Contact [place] [address] [address] [facility] Pain Care [address] [place] [address] Referral ID Status Reason Start Date Expiration Date Visits Re quested Visits Authorized [id number] Closed 12/21/2016 06/19/2017 1 3 Encounter Details Date Type Department Care Team (Latest Contact Info) Description 12/28/2016 11:15 AM CDT - 12/28/2016 11:21 AM T Hospital Encounter [facility] Health Pain Care [address] [place] [address] [place] [address] [address] Discharge Disposition: Home or Self [...] 1 (one) tablet by mouth at bedtime Hsncoaivbbp-Bblxpmxdu-A it C-Mn (GLUCOSAMINE CHONDR 1500 COMPLX PO) [...] Contact Info) Description 06/03/2024 1:00 PM FLOOR COVERING PRINTER Appointment [facility] - Rheumatology [address] [place] [address] [phone] 06/03/2024 2:00 PM FLOOR COVERING PRINTER Office Visit [facility] - Rheumatology [address] [place] [address] [phone] Gloria Smith MD [address] [place] [phone] documented as of this encounter Visit Diagnoses Not on filedocumented in this encounter Care Teams Tumor Registrar Relationship Specialty Start Date End Date Tomas Hyman MD [address] [facility] [address] [place] [address] PCP - General Family Medicine 12/31/13 05/09/18 Isidro Heredia MD Rheumatology 02/09/11 documented as of this encounter
--- OUTSIDE RECORDS SUMMARY | 2024-05-03 09:03 | XMS_ITS | Encounter Summary ---
Author Organization [facility] Address [address] [facility] [place] [address] Care Team Providers Care Tilting Head Band Sawyer Name Role Phone Isidro Heredia MD Unavailable [phone] Tomas Hyman MD Primary Care Provider [phone] Reason for Visit * Treatment (Routine) - Closed Specialty Diagnoses / Procedures Referred By Lawrence shah Referred To Contact Infusion Therapy Nurse Diagnoses Rheumatoid arthritis without rheumatoid factor, multiple sites (HCC) Procedures RI INJECTION TOCILIZUMAB 1 MG Isidro Heredia MD 02 [facility] [place] [address] [address] Referral ID Status Reason Start Date Expiration Date Visits Re quested Visits Authorized [id number] Closed 08/07/2016 04/29/2017 1 12 Encounter Details Date Type Department Care Team (Late st Contact Info) Description 02/02/2017 11:40 AM CDT - 02/02/2017 11:59 PM CDT Hospital Encounter [facility] - Rheumatology [address] [place] [address] Isidro Heredia MD [address] [facility] [place] [address] Discharge Disposition: Home or Self [...] Sahu RN - 02/02/2017 12:16 PM CDT [place] Rheumatology Post Infusion instructions [...] through Sunday 9-5 call the office at [phone] After hours or on the weekend call the exchange at [phone] If you have had lab work done [...] - 02/02/2017 12:40 PM CDT JOSE Deng [id number] 02/02/2017 Diagnosis: Rheumatoid arthritis without rheumatoid factor, multiple sites [M06.09]. Pt denies symptoms of infection or antibiotic use, no open wounds, or recent surgery, or plans for surgery in the next couple of weeks. Pt is aware that we use the 0-10 pain scale to assess discomfort. 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 front desk monitor pt signs consent for treatment for this [...] st Contact Info) Description 06/03/2024 1:00 PM PORTER BATH Appointment [facility] - Rheumatology [address] [place] [address] 06/03/2024 2:00 PM PORTER BATH Office Visit [facility] - Rheumatology [address] [place] [address] Gloria Smith MD [address] [place], [place] [address] [address] documented as of this encounter Visit Diagnoses [...] mL/hr documented in this encounter Care Teams Tilting Head Band Sawyer Relationship Specialty Start Date End Date Tomas Hyman MD [address] [facility] [address] [place] [address] PCP - General Family Medicine 12/31/13 05/09/18 Isidro Heredia MD Rheumatology 02/09/11 documented as of this encounter
--- OUTSIDE RECORDS SUMMARY | 2024-05-03 09:03 | XMS_ITS | Encounter Summary ---
Author Organization [facility] Address [address] [place] [address] Care Team Providers Care Mold Changer Name Role Phone Isidro Heredia MD Unavailable [phone] Tomas Hyman MD Primary Care Provider [phone] Reason for Visit * Reason Comments Follow-up Encounter Details Date Type Department Care Team (Late st Contact Info) Description 01/04/2017 2:30 PM CDT Office Visit [facility] - Rheumatology [address] [place] [address] Isidro Heredia MD [address] [place] [address] Chronic right-sided low back pain with [...] 9:10 AM CDT Corrected E/M [place] 72412 ([place]) [place] [address]06[address] (established patient) per chart documentations * Isidro [...] 1 Tab by mouth once daily ??? Bcpdpxmjmeb-Urvydppqv-Fns C-Mn (GLUCOSAMINE CHONDR 1500 COMPLX PO) Take [...] Contact Info) Description 06/03/2024 1:00 PM INSTRUCTOR PROGRAMMABLE CONTROLLERS Appointment [facility] - Rheumatology [address] [place] [address] 06/03/2024 2:00 PM INSTRUCTOR PROGRAMMABLE CONTROLLERS Office Visit [facility] - Rheumatology [address] [place] [address] Gloria Smith MD [address] [place] [phone] documented as of this encounter Visit [...] Shoulder documented in this encounter Care Teams Mold Changer Relationship Specialty Start Date End Date Tomas Hyman MD [address] [facility] [address] [place] [address] PCP - General Family Medicine 12/31/13 05/09/18 Isidro Heredia MD Rheumatology 02/09/11 documented as of this encounter
--- OUTSIDE RECORDS SUMMARY | 2024-05-03 09:03 | XMS_ITS | Encounter Summary ---
Author Organization [facility] Address [address] [place] [address] Care Team Providers Care Software Test Analyst Name Role Phone Isidro Heredia MD Unavailable [phone] Tomas Hyman MD Primary Care Provider [phone] Encounter Details Date Type Department Care Team (Latest Contact Info) Description 03/01/2017 10:05 AM CDT - 03/01/2017 11:59 PM CDT Hospital Encounter [facility] Pain Care [address] [place] [address] [place] [address] [place] [address] Discharge Disposition: Home or Self Care Social [...] Henao RN - 03/01/2017 10:10 AM CDT [facility] Pain [...] headache, or any other problems, please call [phone] or after hours callDr. Mirza at [phone] and tell them your physician's name. The exchange will alert the physician dairy nutrition consultant. If sedation is given: No sedation [...] PO) ??? Multiple Vitamin (MULTI-VITAMIN PO) ??? Npdbufiboww-Rbytugxao-Zhg C-Mn (GLUCOSAMINE CHONDR 1500 COMPLX PO) ??? [...] identified, and marked by Dr. Mirza. Responsible armored car driver is not needed due to the [...] PO) ??? Multiple Vitamin (MULTI-VITAMIN PO) ??? Ophpswpntbs-Wwppuesyc-Dew C-Mn (GLUCOSAMINE CHONDR 1500 COMPLX PO) ??? [...] identified, and marked by Dr. Mirza. Responsible armored car driver is not needed due to the [...] Contact Info) Description 06/03/2024 1:00 PM POWDER COAT PAINTER Appointment [facility] - Rheumatology [address] [place] [phone] 06/03/2024 2:00 PM POWDER COAT PAINTER Office Visit [facility] - Rheumatology [address] [place] [address] Gloria Smith MD [address] [place] [phone] documented as of this encounter Procedures Procedure [...] ? Multiple Vitamin (MULTI-VITAMIN PO) ? ? Iousoemzteb-Bukmxltod-Emz C-Mn (GLUCOSAMINE CHONDR 1500 COMPLX PO) ? [...] identified, and marked by Dr. Mirza. ??Responsible armored car driver is not needed due to the [...] mg documented in this encounter Care Teams Software Test Analyst Relationship Specialty Start Date End Date Tomas Hyman MD [address] [place] [address] PCP - General Family Medicine 12/31/13 05/09/18 Isidro Heredia MD Rheumatology 02/09/11 documented as of this encounter
--- OUTSIDE RECORDS SUMMARY | 2024-05-03 09:03 | XMS_ITS | Encounter Summary ---
Author Organization [facility] Address [address] [facility] [place] [place] [address] Care Team Providers Care Reception Centre Manager Name Role Phone Isidro Heredia MD Unavailable [phone] Tomas Hyman MD Primary Care Provider [phone] Reason for Visit * Reason Onset Date Comments MEDICATION REFILL 11/29/2016 Encounter Details Date Type Department Care Team (Late st Contact Info) Description 11/29/2016 Refill [facility] Medical [facility] - Rheumatology [address] [place] [address] Isidro Heredia MD [address] [place] [address] MEDICATION REFILL Social History Tobacco Use [...] patient that his prescription is ready at administrative assistant front desk for picking belt operator. I have left several messages but [...] for Pain Dx: 714.0 RA patient states [facility] will not except escribe for pain med . He will have to picking belt operator a paper form please advise documented in this encounter Plan of Treatment Upcoming Encounters Date Type Department Care Team (Late st Contact Info) Description 06/03/2024 1:00 PM CHAIN MAKER Appointment [facility] - Rheumatology [address] [place] [address] [phone] 06/03/2024 2:00 PM CHAIN MAKER Office Visit [facility] - Rheumatology [address] [place] [address] [phone] Gloria Smith MD [address] [place] [phone] documented as of this encounter Visit Diagnoses Not on filedocumented in this encounter Care Teams Reception Centre Manager Relationship Specialty Start Date End Date Tomas Hyman MD [address] [facility] [address] [place] [address] PCP - General Family Medicine 12/31/13 05/09/18 Isidro Heredai MD Rheumatology 02/09/11 documented as of this encounter
--- OUTSIDE RECORDS SUMMARY | 2024-05-03 09:03 | XMS_ITS | Encounter Summary ---
Author Organization [facility] Address [address] [place] [address] Care Team Providers Care Life Skills Trainer Name Role Phone Isidro Heredia MD Unavailable [phone] Tomas Hyman MD Primary Care Provider [phone] Reason for Visit * Treatment (Routine) - Closed Specialty Diagnoses / Procedures Referred By Lawrence shah Referred To Contact [place] [id number] [address] [facility] Pain Care [address] [place] [address] Referral ID Status Reason Start Date Expiration Date Visits Re quested Visits Authorized [id number] Closed 12/21/2016 06/19/2017 1 3 Encounter Details Date Type Department Care Team (Latest Contact Info) Description 12/21/2016 10:12 AM CDT - 12/21/2016 10:14 AM T Hospital Encounter [facility] Health Pain Care [address] [place] [address] [place] [address] [address] Discharge Disposition: Home or Self [...] 1 (one) tablet by mouth at bedtime Spncyphxpto-Djhwzsrfv-G it C-Mn (GLUCOSAMINE CHONDR 1500 COMPLX PO) [...] Contact Info) Description 06/03/2024 1:00 PM DISTRICT GAUGER Appointment [facility] - Rheumatology [address] [place] [address] [phone] 06/03/2024 2:00 PM DISTRICT GAUGER Office Visit [facility] - Rheumatology [address] [place] [address] [phone] Gloria Smith MD [address] [place] [phone] documented as of this encounter Visit Diagnoses Not on filedocumented in this encounter Care Teams Life Skills Trainer Relationship Specialty Start Date End Date Tomas Hyman MD [address] [facility] [address] [place] [address] PCP - General Family Medicine 12/31/13 05/09/18 Isidro Heredia MD Rheumatology 02/09/11 documented as of this encounter
--- OUTSIDE RECORDS SUMMARY | 2024-05-03 09:03 | XMS_ITS | Encounter Summary ---
Author Organization [facility] Address [address] [facility] [place] [address] Care Team Providers Care Rf Engineer Name Role Phone Isidro Heredia MD Unavailable Tomas Hyman MD Primary Care Provider [phone] Reason for Visit * Reason Comments Refill Request Encounter Details Date Type Department Care Team (Late Contact Info) Description 11/15/2016 Refill [facility] - Rheumatology [address] [place] [address] Isidro Heredia MD [address] [place] [address] Refill Request Social History Tobacco Use [...] (Late Contact Info) Description 06/03/2024 1:00 PM TELEVISION SERVICE ENGINEER Appointment [facility] - Rheumatology [address] [place] [address] 06/03/2024 2:00 PM TELEVISION SERVICE ENGINEER Office Visit [facility] Rheumatology [address] [place] [address] Gloria Smith MD [address] [place], [place] [address] [address] documented as of this encounter Visit Diagnoses Not on filedocumented in this encounter Care Teams Rf Engineer Relationship Specialty Start Date End Date Tomas Hyman MD [address] [place] [address] PCP - General Family Medicine 12/31/13 05/09/18 Isidro Heredia MD Rheumatology 02/09/11 documented as of this encounter
--- OUTSIDE RECORDS SUMMARY | 2024-05-03 09:03 | XMS_ITS | Encounter Summary ---
Author Organization [facility] Address [address] [place] [address] Care Team Providers Care Pump Machine Operator Name Role Phone Isidro Heredia MD Unavailable [phone] Tomas Hyman MD Primary Care Provider [phone] Encounter Details Date Type Department Care Team (Late st Contact Info) Description 01/22/2017 Orders Only [facility] Medical [facility] - Rheumatology [address] [place] [address] [phone] Isidro Heredia MD [address] [place] [address] Encounter for long-term (current) use of [...] CDT Mild anemia same hb 11.9 meron [id number] documented in this encounter Plan of Treatment Upcoming Encounters Date Type Department Care Team (Late st Contact Info) Description 06/03/2024 1:00 PM WORKER'S COMPENSATION CLAIMS EXAMINER Appointment [facility] - Rheumatology [address] [place] [address] [phone] 06/03/2024 2:00 PM WORKER'S COMPENSATION CLAIMS EXAMINER Office Visit [facility] - Rheumatology [address] [place] [address] Gloria Smith MD [address] [place] [phone] documented as of this encounter Procedures [...] CDT 02/02/2017 Narrative Resulting Agency Comment [facility] [address] ??[facility] [phone] Isidro Heredia MD LAB - CHEMISTRY ORD DONNIE [facility] INSURANCE BILL [address] [place] [address] * ERYTHROCYTE SEDIMENTATION RATE (02/02/2017 12:00 PM CDT) Erythrocyte Sedimentation Rate Westergren 6 0 - 30 mm/hr [facility] INSURANCE BILL Blood BLOOD SPECIMEN / Unknown 02/02/2017 12:00 PM CDT 02/02/2017 Narrative Resulting Agency Comment [facility] [address] ??[facility] [phone] Isidro Heredia MD LAB - HEMATOLOGY OR DERABLES [facility] INSURANCE BILL [address] [place] [address] * (ABNORMAL) COMPREHENSIVE METABOLIC PANEL (02/02/2017 12:00 [...] CDT 02/02/2017 Narrative Resulting Agency Comment [facility] [address] ??[facility] [phone] Isidro Heredia MD LAB - CHEMISTRY ORD ERABLES [facility] INSURANCE BILL [address] [place] [address] * (ABNORMAL) CBC W AUTO DIFFERENTIAL (02/02/2017 [...] CDT 02/02/2017 Narrative Resulting Agency Comment [facility] [address] [facility] ??[facility] [phone] Isidro Heredia MD LAB - HEMATOLOGY OR DERABLES [facility] INSURANCE BILL [address] [place] [address] documented in this encounter Visit Diagnoses Diagnosis Encounter for long-term (current) use of medications- Primary Encounter for long-term (current) use of other medications documented in this encounter Care Teams Pump Machine Operator Relationship Specialty Start Date End Date Tomas Hyman MD [address] [facility] [address] [place] [address] PCP - General Family Medicine 12/31/13 05/09/18 Isidro Heredia MD Rheumatology 02/09/11 documented as of this encounter
--- OUTSIDE RECORDS SUMMARY | 2024-05-03 09:04 | XMS_ITS | Encounter Summary ---
Author Organization [facility] Address [address] [facility] [place] [address] Care Team Providers Care Inventory Taker Name Role Phone Isidro Heredia MD Unavailable [phone] Tomas Hyman MD Primary Care Provider [phone] Encounter Details Date Type Department Care Team (Late Contact Info) Description 09/21/2016 Orders Only [facility] - Rheumatology [address] [place] [address] Isidro Heredia MD [address] [place] [address] Social History Tobacco Use Types Packs/Day [...] (Late Contact Info) Description 06/03/2024 1:00 PM SERVICE DIRECTOR Appointment [facility] - Rheumatology [address] [place] [address] 06/03/2024 2:00 PM SERVICE DIRECTOR Office Visit [facility] - Rheumatology [address] [place] [address] Gloria Smith MD [address] [place] [phone] documented as of this encounter Visit Diagnoses Not on filedocumented in this encounter Care Teams Inventory Taker Relationship Specialty Start Date End Date Tomas Hyman MD [address] [facility] [address] [place] [address] PCP - General Family Medicine 12/31/13 05/09/18 Isidro Heredia MD Rheumatology 02/09/11 documented as of this encounter
--- OUTSIDE RECORDS SUMMARY | 2024-05-03 09:04 | XMS_ITS | Encounter Summary ---
Author Organization [facility] Address [address] [facility] [place] [address] Care Team Providers Care Electric Motor And Generator Assembler Name Role Phone Isidro Heredia MD Unavailable [phone] Tomas Hyman MD Primary Care Provider [phone] Reason for Visit * Reason Comments Refill Request Encounter Details Date Type Department Care Team (Late Contact Info) Description 07/20/2016 Refill [facility] - Rheumatology [address] [place] [address] Isidro Heredia MD [address] [place] [address] Refill Request Social History Tobacco Use [...] (Late Contact Info) Description 06/03/2024 1:00 PM UNDERWRITING ANALYST Appointment [facility] - Rheumatology [address] [place] [address] 06/03/2024 2:00 PM UNDERWRITING ANALYST Office Visit [facility] Rheumatology [address] [place] [address] Gloria Smith MD [address] [place], [place] [address], [place] [address] documented as of this encounter Visit Diagnoses Not on filedocumented in this encounter Care Teams Electric Motor And Generator Assembler Relationship Specialty Start Date End Date Tomas Hyman MD [address] [place] [address] PCP - General Family Medicine 12/31/13 05/09/18 Isidro Heredia MD Rheumatology 02/09/11 documented as of this encounter
--- OUTSIDE RECORDS SUMMARY | 2024-05-03 09:04 | XMS_ITS | Encounter Summary ---
Author Organization [facility] Address [address] [facility] [place] [address] Care Team Providers Care Network Systems Operator Name Role Phone Isidro Heredia MD Unavailable [phone] Tomas Hyman MD Primary Care Provider [phone] Reason for Visit * Reason Comments Refill Request Encounter Details Date Type Department Care Team (Late Contact Info) Description 07/14/2016 Refill [facility] - Rheumatology [address] [place] [address] Isidro Heredia MD [address] [place] [address] Refill Request Social History Tobacco Use [...] (Late Contact Info) Description 06/03/2024 1:00 PM TRAVELING SALES REPRESENTATIVE Appointment [facility] - Rheumatology [address] [place] [address] 06/03/2024 2:00 PM TRAVELING SALES REPRESENTATIVE Office Visit [facility] Rheumatology [address] [place] [address] Gloria Smith MD [address] [place], [place] [address] [address] documented as of this encounter Visit Diagnoses Not on filedocumented in this encounter Care Teams Network Systems Operator Relationship Specialty Start Date End Date Tomas Hyman MD [address] [place] [address] PCP - General Family Medicine 12/31/13 05/09/18 Isidro Heredia MD Rheumatology 02/09/11 documented as of this encounter
--- OUTSIDE RECORDS SUMMARY | 2024-05-03 09:04 | XMS_ITS | Encounter Summary ---
Author Organization [facility] Address [address] [facility] [place] [address] Care Team Providers Care Cbx Operator Name Role Phone Isidro Heredia MD Unavailable Tomas Hyman MD Primary Care Provider [phone] Reason for Visit * Reason Comments Follow-up Medication Check tocilizumba Medication Problem NExium no longer cov ered ( omeprazole perfered ) Refill Request naproxen Narcotic Refill Percocet Encounter Details Date Type Department Care Team (Late st Contact Info) Description 09/21/2016 2:00 PM CDT Office Visit [facility] - Rheumatology [address] [place] [address] Isidro Heredia MD [address] [place] [address] Chronic right-sided low back pain with [...] 1 Tab by mouth once daily ??? Gmowijrrlvw-Vtkrbwdsu-Hue C-Mn (GLUCOSAMINE CHONDR 1500 COMPLX PO) Take [...] Contact Info) Description 06/03/2024 1:00 PM DIRECTOR DIGITAL SALES Appointment [facility] - Rheumatology [address] [place] [address] 06/03/2024 2:00 PM DIRECTOR DIGITAL SALES Office Visit [facility] - Rheumatology [address] [place] [address] Gloria Smith MD [address] [place] [address] documented as of this encounter Results * [...] breath documented in this encounter Care Teams Cbx Operator Relationship Specialty Start Date End Date Tomas Hyman MD [address] [facility] [address] [place] [address] PCP - General Family Medicine 12/31/13 05/09/18 Isidro Heredia MD Rheumatology 02/09/11 documented as of this encounter
--- OUTSIDE RECORDS SUMMARY | 2024-05-03 09:04 | XMS_ITS | Encounter Summary ---
Author Organization [facility] Address [address] [facility] [place] [address] Care Team Providers Care Machine Assembler For Puller Over Name Role Phone Isidro Heredia MD Unavailable Tomas Hyman MD Primary Care Provider [phone] Reason for Visit * Reason Comments Narcotic Refill percocet * Evaluate & Treat (Routine) - Closed Specialty Diagnoses / Procedures Referred By Contsarahi t Referred To Contact Diagnoses Rheumatoid arthritis, unspecified (HCC) Procedures [place] OFFICE VISIT DURING HOURS Tomas Hyman MD [address] [place] [address] Isidro Heredia MD [address] [place] [address] Referral ID Status Reason Start Date Expiration Date Visits Re quested Visits Authorized [id number] Closed 06/15/2016 06/15/2017 6 6 Encounter Details Date Type Department Care Team (Late st Contact Info) Description 08/24/2016 2:00 PM CDT Office Visit [facility] - Rheumatology [address] [place] [address] Isidro Heredia MD [address] [place] [address] Abnormal LFTs (Primary Dx); Chronic right-sided [...] 1 Tab by mouth once daily ??? 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
--- OUTSIDE RECORDS SUMMARY | 2024-05-03 09:04 | XMS_ITS | Encounter Summary ---
Author Organization [facility] Address [address] [facility] [place] [address] Care Team Providers Care Racket Stringer Name Role Phone Isidro Heredia MD Unavailable [phone] Tomas Hyman MD Primary Care Provider [phone] Reason for Visit * Reason Comments Refill Request Encounter Details Date Type Department Care Team (Late Contact Info) Description 07/07/2016 Refill [facility] - Rheumatology [address] [place] [address] Isidro Heredia MD [address] [place] [address] Refill Request Social History Tobacco Use [...] (Late Contact Info) Description 06/03/2024 1:00 PM VENETIAN BLIND MAKER Appointment [facility] - Rheumatology [address] [place] [address] 06/03/2024 2:00 PM VENETIAN BLIND MAKER Office Visit [facility] Rheumatology [address] [place] [address] Gloria Smith MD [address] [place] [address] [address] documented as of this encounter Visit Diagnoses Not on filedocumented in this encounter Care Teams Racket Stringer Relationship Specialty Start Date End Date Tomas Hyman MD [address] [place] [address] PCP - General Family Medicine 12/31/13 05/09/18 Isidro Heredia MD Rheumatology 02/09/11 documented as of this encounter
--- OUTSIDE RECORDS SUMMARY | 2024-05-03 09:04 | XMS_ITS | Encounter Summary ---
Author Organization [facility] Address [address] [facility] [place] [address] Care Team Providers Care Ruby On Rails Consultant Name Role Phone Isidro Heredia MD Unavailable [phone] Tomas Hyman MD Primary Care Provider Encounter Details Date Type Department Care Team (Late st Contact Info) Description 09/21/2016 3:46 PM CDT - 09/21/2016 11:59 [address] [facility] Urgent Care - Medical Imaging [address] [place] [address] Isidro Heredia MD [address] [place] [address] Discharge Disposition: Home or Self Care [...] 1 (one) tablet by mouth at bedtime Gtwhhvxaths-Kgidfezuo-X it C-Mn (GLUCOSAMINE CHONDR 1500 COMPLX PO) [...] st Contact Info) Description 06/03/2024 1:00 PM ELECTRONICS ENGINEERING TECHNICIAN Appointment [facility] - Rheumatology [address] [place] [address] 06/03/2024 2:00 PM ELECTRONICS ENGINEERING TECHNICIAN Office Visit [facility] - Rheumatology [address] [place] [address] Gloria Smith MD [facility] [place] [place] [phone] documented as of this encounter Procedures Procedure [...] breath documented in this encounter Care Teams Ruby On Rails Consultant Relationship Specialty Start Date End Date Tomas Hyman MD [address] [place] [address] PCP - General Family Medicine 12/31/13 05/09/18 Isidro Heredia MD Rheumatology 02/09/11 documented as of this encounter
--- OUTSIDE RECORDS SUMMARY | 2024-05-03 09:04 | XMS_ITS | Encounter Summary ---
Author Organization [facility] Address [address] [facility] [place] [address] Care Team Providers Care Gravure Press Set Up Operator Name Role Phone Isidro Heredia MD Unavailable [phone] Tomas Hyman MD Primary Care Provider [phone] Reason for Visit * Reason Comments Rheumatoid Arthritis Encounter Details Date Type Department Care Team (Late st Contact Info) Description 06/01/2016 2:00 PM MOTHER'S HELPER Office Visit [facility] - Rheumatology [address] [place] [address] Isidro Heredia MD [address] [place] [address] Chronic right-sided low back pain with [...] Comments Blood Pressure 120/76 06/01/2016 2:09 PM MOTHER'S HELPER Pulse 85 06/01/2016 2:09 PM MOTHER'S HELPER Temperature - - Respiratory Rate - - Oxygen Saturation - - Inhaled Oxygen Concentration - - Weight 119.3 kg (263 lb) 06/01/2016 2:09 PM MOTHER'S HELPER Height - - Body Mass Index 37.74 [...] 1 Tab by mouth once daily ??? Hmmyqmmvodf-Qzjrbiulm-Rbq C-Mn (GLUCOSAMINE CHONDR 1500 COMPLX PO) Take [...] Follow up in office in 4 weeks ER'S HELPER documented in this encounter Plan of Treatment Upcoming Encounters Date Type Department Care Team (Late st Contact Info) Description 06/03/2024 1:00 PM MOTHER'S HELPER Appointment [facility] - Rheumatology [address] [place] [address] [phone] 06/03/2024 2:00 PM MOTHER'S HELPER Office Visit [facility] - Rheumatology [address] [place] [address] [phone] Gloria Smith MD [address] [place] [phone] documented as of this encounter Visit Diagnoses Diagnosis Chronic right-sided low back pain with right-sided sciatica- Primary Rheumatoid arthritis of multiple 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 factor (HCC) Rheumatoid arthritis Rheumatoid arthritis of multiple sites with negative rheumatoid factor (HCC) Chronic pain syndrome documented in this encounter Care Teams Gravure Press Set Up Operator Relationship Specialty Start Date End Date Tomas Hyman MD [address] [facility] [address] [place] [address] PCP - General Family Medicine 12/31/13 05/09/18 Isidro Heredia MD Rheumatology 02/09/11 documented as of this encounter
--- OUTSIDE RECORDS SUMMARY | 2024-05-03 09:04 | XMS_ITS | Encounter Summary ---
Author Organization [facility] Address [address] [facility] [place] [address] Care Team Providers Care Junior Qa Analyst Name Role Phone Isidro Heredia MD Unavailable [phone] Tomas Hyman MD Primary Care Provider [phone] Encounter Details Date Type Department Care Team (Late st Contact Info) Description 02/23/2016 Orders Only [facility] Medical [facility] - Rheumatology [address] [place] [address] [phone] Isidro Heredia MD [address] [place] [address] Rheumatoid arthritis of multiple sites with [...] - 03/01/2016 11:05 AM CDTPatient notified via [facility]. * Isidro Heredia MD - 03/01/2016 9:15 AM CDTSl anemia Hb 11.8 plts ok 164 mtx ok meron documented in this encounter Plan of Treatment Upcoming Encounters Date Type Department Care Team (Late st Contact Info) Description 06/03/2024 1:00 PM FREELANCE DESIGNER Appointment [facility] - Rheumatology [address] [place] [address] 06/03/2024 2:00 PM FREELANCE DESIGNER Office Visit [facility] - Rheumatology [address] [place] [address] Gloria Smith MD [address] [place] [phone] documented as of this encounter Procedures Procedure [...] performed due to degeneration of specimen. ?TEST: ??[id number] ??Sedimentation Rate-Westergren Ancillary determined the test is not needed 02/23/2016 1:30 AM CDT 02/23/2016 6:29 PM CDT Narrative Resulting Agency Comment [facility] [address] [facility] ??Critical access hospital [phone] Isidro Heredia MD LAB - CHEMISTRY ORD ERABLES [facility] INSURANCE BILL [address] [place] [address] * SED RATE WESTERGREN (02/23/2016 1:30 AM CDT) Erythrocyte Sedimentation Rate Westergren NOT NEEDED mm/hr [facility] INSURANCE BILL Comment: Test could not be performed due to degeneration of specimen. Ancillary determined the test is not needed Blood BLOOD SPECIMEN / Unknown 02/23/2016 1:30 AM CDT 02/23/2016 6:29 PM CDT Narrative Resulting Agency Comment [facility] [address] [facility] ??Critical access hospital [phone] Isidro Heredia MD LAB - HEMATOLOGY OR DERABLES [facility] INSURANCE BILL [address] [place] [address] * (ABNORMAL) COMPREHENSIVE METABOLIC PANEL (02/23/2016 1:30 [...] PM CDT Narrative Resulting Agency Comment [facility] [address] [facility] ??Critical access hospital [id number] Isidro Heredia MD LAB - CHEMISTRY ORD ERABLES [facility] INSURANCE BILL [address] [place] [address] * (ABNORMAL) CBC W AUTO DIFFERENTIAL (02/23/2016 [...] PM CDT Narrative Resulting Agency Comment [facility] [address] ??Critical access hospital [phone] Isidro Heredia MD LAB - HEMATOLOGY OR DERABLES [facility] INSURANCE BILL [address] [place] [address] documented in this encounter Visit Diagnoses Diagnosis Rheumatoid arthritis 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
--- OUTSIDE RECORDS SUMMARY | 2024-05-03 09:04 | XMS_ITS | Encounter Summary ---
Author Organization [facility] Address [address] [facility] [place] [address] Care Team Providers Care Biomedical Engineering Director Name Role Phone Isidro Heredia MD Unavailable [phone] Tomas Hyman MD Primary Care Provider Reason for Visit * Reason Onset Date Comments MEDICATION REFILL 04/05/2016 Encounter Details Date Type Department Care Team (Late Contact Info) Description 04/05/2016 Refill [facility] - Rheumatology [address] [place] [address] Isidro Heredia MD [address] [place] [address] MEDICATION REFILL Social History Tobacco Use [...] (Late Contact Info) Description 06/03/2024 1:00 PM PROJECT INTERN Appointment [facility] - Rheumatology [address] [place] [address] 06/03/2024 2:00 PM PROJECT INTERN Office Visit [facility] - Rheumatology [address] [place] [address] Gloria Smith MD [address] [place] [address] documented as of this encounter Visit Diagnoses Diagnosis Rheumatoid arthritis of multiple 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 factor (HCC) Rheumatoid arthritis documented in this encounter Care Teams Biomedical Engineering Director Relationship Specialty Start Date End Date Tomas Hyman MD [address] [place] [address] PCP - General Family Medicine 12/31/13 05/09/18 Isidro Heredia MD Rheumatology 02/09/11 documented as of this encounter
--- OUTSIDE RECORDS SUMMARY | 2024-05-03 09:04 | XMS_ITS | Encounter Summary ---
Author Organization [facility] Address [address] [place] [address] Care Team Providers Care Assistant Sales Director Name Role Phone Isidro Heredia MD Unavailable [phone] Tomas Hyman MD Primary Care Provider [phone] Encounter Details Date Type Department Care Team (Late Contact Info) Description 06/29/2016 Orders Only [facility] - Rheumatology [address] [place] [address] Isidro Heredia MD [address] [place] [address] Social History Tobacco Use Types Packs/Day [...] Contact Info) Description 06/03/2024 1:00 PM APPLICATIONS DEVELOPMENT ANALYST Appointment [facility] - Rheumatology [address] [place] [address] 06/03/2024 2:00 PM APPLICATIONS DEVELOPMENT ANALYST Office Visit [facility] - Rheumatology [address] [place] [address] Gloria Smith MD [address] [place] [phone] documented as of this encounter Visit Diagnoses Not on filedocumented in this encounter Care Teams Assistant Sales Director Relationship Specialty Start Date End Date Tomas Hyman MD [address] [facility] [address] [place] [address] PCP - General Family Medicine 12/31/13 05/09/18 Isidro Heredia MD Rheumatology 02/09/11 documented as of this encounter
--- OUTSIDE RECORDS SUMMARY | 2024-05-03 09:04 | XMS_ITS | Encounter Summary ---
Author Organization [facility] Address [address] [facility] [place] [address] Care Team Providers Care Art Therapy Specialist Name Role Phone Isidro Heredia MD Unavailable Tomas Hyman MD Primary Care Provider [phone] Reason for Visit * Reason Comments Narcotic Refill percocet MEDICATION REFILL skelaxin * Evaluate & Treat (Routine) - Closed Specialty Diagnoses / Procedures Referred By Contac t Referred To Contact Diagnoses Rheumatoid arthritis, unspecified (HCC) Procedures CT OFFICE VISIT DURING HOURS Tomas Hyman MD [address] [place] [address] Isidro Heredia MD [address] [place] [address] Referral ID Status Reason Start Date Expiration Date Visits Re quested Visits Authorized [id number] Closed 06/15/2016 06/15/2017 6 6 Encounter Details Date Type Department Care Team (Late st Contact Info) Description 06/29/2016 2:00 PM TAKE OFF WORKER Office Visit [facility] - Rheumatology [address] [place] [address] Isidro Heredia MD [address] [place] [address] Abnormal LFTs (Primary Dx); Chronic right-sided [...] Comments Blood Pressure 125/84 06/29/2016 2:20 PM TAKE OFF WORKER Pulse 80 06/29/2016 2:20 PM TAKE OFF WORKER Temperature - - Respiratory Rate - [...] 1 Tab by mouth once daily ??? Qpailhbrjif-Kgzmptses-Izs C-Mn (GLUCOSAMINE CHONDR 1500 COMPLX PO) Take [...] Follow up in office in 4 weeks OFF WORKER documented in this encounter Plan of Treatment Upcoming Encounters Date Type Department Care Team (Late st Contact Info) Description 06/03/2024 1:00 PM TAKE OFF WORKER Appointment [facility] - Rheumatology [address] [place] [address] 06/03/2024 2:00 PM TAKE OFF WORKER Office Visit [facility] - Rheumatology [address] [place] [address] Gloria Smith MD [address] [place] [phone] documented as of this encounter Visit Diagnoses Diagnosis Abnormal LFTs- Primary Other abnormal blood chemistry 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
--- OUTSIDE RECORDS SUMMARY | 2024-05-03 09:04 | XMS_ITS | Encounter Summary ---
Author Organization [facility] Address [address] [facility] [place] [address] Care Team Providers Care Documentation Billing Clerk Name Role Phone Isidro Heredia MD Unavailable [phone] Tomas Hyman MD Primary Care Provider [phone] Reason for Visit * Treatment (Routine) - Closed Specialty Diagnoses / Procedures Referred By Lawrence shah Referred To Contact Infusion Therapy Nurse Diagnoses Rheumatoid arthritis without rheumatoid factor, multiple sites (HCC) Procedures [place] INJECTION TOCILIZUMAB 1 MG Isidro Heredia MD [address] [place] [address] [address] Referral ID Status Reason Start Date Expiration Date Visits Re quested Visits Authorized [id number] Closed 12/16/2015 06/07/2016 1 6 Encounter Details Date Type Department Care Team (Late st Contact Info) Description 06/01/2016 1:13 PM PRINTING ESTIMATOR - 06/01/2016 11:59 PM PRINTING ESTIMATOR Hospital Encounter [facility] Medical [facility] - Rheumatology [address] [place] [address] Isidro Heredia MD [address] [place] [address] Discharge Disposition: Home or Self [...] Comments Blood Pressure 120/76 06/01/2016 1:42 PM PRINTING ESTIMATOR Pulse 85 06/01/2016 1:42 PM PRINTING ESTIMATOR Temperature 36.9 ??C (98.4 ??F) 06/01/2016 1:42 PM CS T Respiratory Rate 16 06/01/2016 1:42 PM PRINTING ESTIMATOR Oxygen Saturation - - Inhaled Oxygen Concentration - - Weight 119.3 kg (263 lb) 06/01/2016 1:42 PM PRINTING ESTIMATOR Height - - Body Mass Index 37.74 01/11/2016 3:12 PM CDT documented in this encounter Discharge Instructions * Discharge Instructions* Jody Sahu RN - 06/01/2016 1:46 PM PRINTING ESTIMATOR [place] Rheumatology Post Infusion instructions You have received [...] Sunday through 01-02 call the office at [phone] After hours or on the weekend call the exchange at [phone] If you have had lab work done [...] Hospital as your provider. Jody Sahu RN TING ESTIMATOR documented in this encounter Medications at Time of Discharge Medication Sig Dispensed Refills Start Date End Date atorvastatin (LIPITOR) 40 MG tablet Take 1 (one) tablet by mouth at bedtime Qascldrzmnv-Hlfudyqmu-F it C-Mn (GLUCOSAMINE CHONDR 1500 COMPLX PO) [...] - 06/01/2016 1:59 PM CST JOSE Deng [id number] 06/01/2016 Diagnosis: Rheumatoid arthritis without rheumatoid factor, multiple sites [M06.09]. Pt denies symptoms of infection or antibiotic use, no open wounds, or recent surgery, or plans for surgery in the next couple of weeks. Pt is aware that we use the 0-10 pain scale to assess discomfort. 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 front clerk pt signs consent for treatment for [...] Next treatment? 4 weeks Jody Sahu RN TING ESTIMATOR documented in this encounter Plan of Treatment Upcoming Encounters Date Type Department Care Team (Late st Contact Info) Description 06/03/2024 1:00 PM PRINTING ESTIMATOR Appointment [facility] - Rheumatology [address] [place] [address] 06/03/2024 2:00 PM PRINTING ESTIMATOR Office Visit [facility] - Rheumatology [address] [place] [address] Gloria Smith MD [address] [place] [phone] documented as of this encounter Visit Diagnoses [...] 24hrs RT $ Given 06/01/2016 1:55 PM PRINTING ESTIMATOR 800 mg documented in this encounter Care Teams Documentation Billing Clerk Relationship Specialty Start Date End Date Tomas Hyman MD [address] [facility] [address] [place] [address] PCP - General Family Medicine 12/31/13 05/09/18 Isidro Heredia MD Rheumatology 02/09/11 documented as of this encounter
--- OUTSIDE RECORDS SUMMARY | 2024-05-03 09:04 | XMS_ITS | Encounter Summary ---
Author Organization [facility] Address [address] [facility] [place] [address] Care Team Providers Care Manufacturing Applications Engineer Name Role Phone Isidro Heredia MD Unavailable Tomas Hyman MD Primary Care Provider [phone] Reason for Visit * Treatment (Routine) - Closed Specialty Diagnoses / Procedures Referred By Lawrence shah Referred To Contact [place] [address] [address] [facility] Pain Care [address] [place] [address] Referral ID Status Reason Start Date Expiration Date Visits Re quested Visits Authorized [id number] Closed 05/16/2016 11/12/2016 1 3 Encounter Details Date Type Department Care Team (Latest Contact Info) Description 05/16/2016 10:30 AM GRAPHIC DESIGN PROFESSOR - 05/16/2016 11:00 AM [facility] Hospital Encounter [facility] Health Pain Care [address] [place] [address] [place] [address] [address] Discharge Disposition: Home or Self [...] 1 (one) tablet by mouth at bedtime Ujuixvhfsfq-Vejwndgol-P it C-Mn (GLUCOSAMINE CHONDR 1500 COMPLX PO) [...] st Contact Info) Description 06/03/2024 1:00 PM GRAPHIC DESIGN PROFESSOR Appointment [facility] - Rheumatology [address] [place] [address] [phone] 06/03/2024 2:00 PM GRAPHIC DESIGN PROFESSOR Office Visit [facility] - Rheumatology [address] [place] [address] [phone] Gloria Smith MD [address] [place] [phone] documented as of this encounter Visit Diagnoses Not on filedocumented in this encounter Care Teams Manufacturing Applications Engineer Relationship Specialty Start Date End Date Tomas Hyman MD [address] [facility] [address] [place] [address] PCP - General Family Medicine 12/31/13 05/09/18 Isidro Heredia MD Rheumatology 02/09/11 documented as of this encounter
--- OUTSIDE RECORDS SUMMARY | 2024-05-03 09:04 | XMS_ITS | Encounter Summary ---
Author Organization [facility] Address [address] [facility] [place] [address] Care Team Providers Care Shift Engineer Name Role Phone Isidro Heredia MD Unavailable [phone] Tomas Hyman MD Primary Care Provider [phone] Reason for Visit * Reason Comments Refill Request Encounter Details Date Type Department Care Team (Late Contact Info) Description 06/08/2016 Refill [facility] - Rheumatology [address] [place] [address] Isidro Heerdia MD [address] [place] [address] Refill Request Social History Tobacco Use [...] (Late Contact Info) Description 06/03/2024 1:00 PM HEARING IMPAIRED TEACHER Appointment [facility] - Rheumatology [address] [place] [address] 06/03/2024 2:00 PM HEARING IMPAIRED TEACHER Office Visit [facility] Rheumatology [address] [place] [address] Gloria Smith MD [address] [place] [address] [address] documented as of this encounter Visit Diagnoses Not on filedocumented in this encounter Care Teams Shift Engineer Relationship Specialty Start Date End Date Tomas Hyman MD [address] [place] [address] PCP - General Family Medicine 12/31/13 05/09/18 Isidro Heredia MD Rheumatology 02/09/11 documented as of this encounter
--- OUTSIDE RECORDS SUMMARY | 2024-05-03 09:04 | XMS_ITS | Encounter Summary ---
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, multiple sites (HCC) Procedures [place] INJECTION TOCILIZUMAB 1 MG Isidro Heredia MD [address] [facility] [place] [address] [address] Referral ID Status Reason Start Date Expiration Date Visits Re quested Visits Authorized [id number] Closed 08/07/2016 04/29/2017 1 12 Encounter Details Date Type Department Care Team (Late st Contact Info) Description 08/24/2016 1:00 PM CDT - 08/24/2016 11:59 PM CDT Hospital Encounter [facility] Medical [facility] - Rheumatology [address] [place] [address] Isidro Heredia MD [address] [facility] [place] [address] Discharge Disposition: Home or Self [...] Foreman RN - 08/24/2016 2:09 PM CDT [place] Rheumatology Post Infusion instructions [...] Sunday through 01-02 call the office at [phone] After hours or on the weekend call the exchange at [phone] If you have had lab work done [...] 1 (one) tablet by mouth at bedtime Vnrbvzopfea-Sjbepjxhz-W it C-Mn (GLUCOSAMINE CHONDR 1500 COMPLX PO) [...] - 08/24/2016 2:05 PM CDT JOSE Deng [id number] 08/24/2016 Diagnosis: Rheumatoid arthritis without rheumatoid factor, [...] st Contact Info) Description 06/03/2024 1:00 PM PERL PROGRAMMER Appointment [facility] - Rheumatology [address] [place] [address] 06/03/2024 2:00 PM PERL PROGRAMMER Office Visit [facility] - Rheumatology [address] [place] [address] Gloria Smith MD [address] [place] [phone] documented as of this encounter Visit [...] mg documented in this encounter Care Teams Turf Sales Person Relationship Specialty Start Date End Date Tomas Hyman MD [address] [place] [address] PCP - General Family Medicine 12/31/13 05/09/18 Isidro Heredia MD Rheumatology 02/09/11 documented as of this encounter
--- OUTSIDE RECORDS SUMMARY | 2024-05-03 09:04 | XMS_ITS | Encounter Summary ---
Author Organization [facility] Address [address] [place] [place] [address] Care Team Providers Care Camp Housekeeper Name Role Phone Isidro Heredia MD Unavailable [phone] Tomas Hyman MD Primary Care Provider [phone] Reason for Visit * Reason Comments Refill Request Encounter Details Date Type Department Care Team (Late Contact Info) Description 05/23/2016 Refill [facility] - Rheumatology [address] [place] [place] [address] Isidro Heredia MD [address] [place] [address] Refill Request Social History Tobacco Use [...] (Late Contact Info) Description 06/03/2024 1:00 PM WAXED BAG MACHINE OPERATOR Appointment [facility] - Rheumatology [address] [place] [address] 06/03/2024 2:00 PM WAXED BAG MACHINE OPERATOR Office Visit [facility] Rheumatology [address] [place] [address] Gloria Smith MD [address] [place], [place] [address] [address] documented as of this encounter Visit Diagnoses Not on filedocumented in this encounter Care Teams Camp Housekeeper Relationship Specialty Start Date End Date Tomas Hyman MD [address] [place] [address] PCP - General Family Medicine 12/31/13 05/09/18 Isidro Heredia MD Rheumatology 02/09/11 documented as of this encounter
--- OUTSIDE RECORDS SUMMARY | 2024-05-03 09:04 | XMS_ITS | Encounter Summary ---
Author Organization [facility] Address [address] [place] [address] Care Team Providers Care Second Baller Name Role Phone Isidro Heredia MD Unavailable [phone] Tomas Hyman MD Primary Care Provider [phone] Encounter Details Date Type Department Care Team (Late st Contact Info) Description 05/04/2016 Orders Only [facility] Medical [facility] - Rheumatology [address] [place] [phone] Isidro Heredia MD [address] [place] [address] Rheumatoid arthritis of multiple sites with [...] sent via my chart regarding lab results HER HELPER * Isidro Heredia MD - 05/12/2016 6:12 PM CST Wbc 12.4 sl high mtx ok Chol very Good [address] HER HELPER documented in this encounter Plan of Treatment Upcoming Encounters Date Type Department Care Team (Late st Contact Info) Description 06/03/2024 1:00 PM CATCHER HELPER Appointment [facility] - Rheumatology [address] [place] [address] 06/03/2024 2:00 PM CATCHER HELPER Office Visit [facility] - Rheumatology [address] [place] [address] Gloria Smith MD [address] [place] [address] documented as of this encounter Procedures Procedure Name Priority Date/Time Associated Diagnosis Comments LIPID PROFILE W TCHOL/HDL Routine 05/04/2016 1:30 AM CATCHER HELPER Rheumatoid arthritis of multiple sites with negative rheumatoid factor (HCC) ERYTHROCYTE SEDIMENTATION RATE Routine 05/04/2016 1:30 AM CATCHER HELPER Rheumatoid arthritis of multiple sites with negative rheumatoid factor (HCC) CBC W AUTO DIFFERENTIAL Routine 05/04/2016 1:30 AM CATCHER HELPER Rheumatoid arthritis of multiple sites with negative rheumatoid factor (HCC) COMPREHENSIVE METABOLIC PANEL Routine 05/04/2016 1:30 AM CATCHER HELPER Rheumatoid arthritis of multiple sites with negative rheumatoid factor (HCC) documented in this encounter Results * SED RATE WESTERGREN (05/04/2016 1:30 AM CATCHER HELPER) Erythrocyte Sedimentation Rate Westergren 3 0 - 30 mm/hr [facility] INSURANCE BILL Blood BLOOD SPECIMEN / Unknown 05/04/2016 1:30 AM CATCHER HELPER 05/04/2016 Narrative Resulting Agency Comment [facility] [address] ??[facility] [phone] Isidro Heredia MD LAB - HEMATOLOGY OR DERABLES [facility] INSURANCE BILL [address] [place] [address] * (ABNORMAL) LIPID PROFILE W TCHOL/HDL (PO REF LAB) (05/04/2016 1:30 AM CATCHER HELPER) Cholesterol 129 100 - 199 mg/dL [facility] [...] BLOOD SPECIMEN / Unknown 05/04/2016 1:30 AM CATCHER HELPER 05/04/2016 Narrative Resulting Agency Comment [facility] [address] ??[facility] [phone] Isidro Heredia MD LAB - CHEMISTRY ORD ERABLES [facility] INSURANCE BILL [address] [place] [address] * (ABNORMAL) COMPREHENSIVE METABOLIC PANEL (05/04/2016 1:30 AM CATCHER HELPER) Glucose 97 65 - 99 mg/dL [facility] [...] BLOOD SPECIMEN / Unknown 05/04/2016 1:30 AM CATCHER HELPER 05/04/2016 Narrative Resulting Agency Comment [facility] [address] ??[facility] [phone] Isidro Heredia MD LAB - CHEMISTRY ORD ERABLES [facility] INSURANCE BILL [address] [place] [address] * (ABNORMAL) CBC W AUTO DIFFERENTIAL (05/04/2016 1:30 AM CATCHER HELPER) WBC 12.4(H) 3.4 - 10.8 x10E3/uL [facility] [...] BLOOD SPECIMEN / Unknown 05/04/2016 1:30 AM CATCHER HELPER 05/04/2016 Narrative Resulting Agency Comment [facility] [address] ??[facility] [phone] Isidro Heredia MD LAB - HEMATOLOGY OR DERABLES [facility] INSURANCE BILL [address] [place] [address] documented in this encounter Visit Diagnoses Diagnosis Rheumatoid arthritis of multiple sites with negative rheumatoid factor (HCC)- Primary documented in this encounter Care Teams Second Baller Relationship Specialty Start Date End Date Tomas Hyman MD [address] [facility] [address] [place] [address] PCP - General Family Medicine 12/31/13 05/09/18 Isidro Heredia MD Rheumatology 02/09/11 documented as of this encounter
--- OUTSIDE RECORDS SUMMARY | 2024-05-03 09:04 | XMS_ITS | Encounter Summary ---
Author Organization [facility] Address [address] [facility] [place] [address] Care Team Providers Care Red Cross Worker Name Role Phone Isidro Heredia MD Unavailable [phone] Tomas Hyman MD Primary Care Provider [phone] Reason for Visit * Reason Onset Date Comments MEDICATION REFILL 08/09/2016 Encounter Details Date Type Department Care Team (Late Contact Info) Description 08/09/2016 Refill [facility] - Rheumatology [address] [place] [address] Isidro Heredia MD [address] [place] [address] MEDICATION REFILL Social History Tobacco Use [...] (Late Contact Info) Description 06/03/2024 1:00 PM LICENSED PHYSICAL THERAPIST ASSISTANT Appointment [facility] - Rheumatology [address] [place] [address] 06/03/2024 2:00 PM LICENSED PHYSICAL THERAPIST ASSISTANT Office Visit [facility] - Rheumatology [address] [place] [address] Gloria Smith MD [address] [place] [address] documented as of this encounter Visit Diagnoses Not on filedocumented in this encounter Care Teams Red Cross Worker Relationship Specialty Start Date End Date Tomas Hyman MD [address] [place] [address] PCP - General Family Medicine 12/31/13 05/09/18 Isidro Heredia MD Rheumatology 02/09/11 documented as of this encounter
--- OUTSIDE RECORDS SUMMARY | 2024-05-03 09:04 | XMS_ITS | Encounter Summary ---
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 - Rheumatology [address] [place] [address] Isidro Heredia MD [address] [place] [address] Discharge Disposition: Home or Self [...] Comments Blood Pressure 154/92 05/04/2016 1:27 PM RETAIL PERFORMANCE COACH Pulse 96 05/04/2016 1:27 PM RETAIL PERFORMANCE COACH Temperature 36.7 ??C (98 ??F) 05/04/2016 1:27 PM RETAIL PERFORMANCE COACH Respiratory Rate 18 05/04/2016 1:27 PM RETAIL PERFORMANCE COACH Oxygen Saturation - - Inhaled Oxygen Concentration - - Weight 117.9 kg (260 lb) 05/04/2016 1:27 PM RETAIL PERFORMANCE COACH Height - - Body Mass Index 37.31 01/11/2016 3:12 PM CDT documented in this encounter Discharge Instructions * Discharge Instructions* Jody Sahu RN - 05/04/2016 1:40 PM RETAIL PERFORMANCE COACH [place] Rheumatology Post Infusion instructions You have [...] through Sunday 9-5 call the office at [phone] After hours or on the weekend call the exchange at [phone] If you have had lab work done [...] Hospital as your provider. Jody Sahu RN [place] PERFORMANCE COACH documented in this encounter Medications at Time of Discharge Medication Sig Dispensed Refills Start Date End Date atorvastatin (LIPITOR) 40 MG tablet Take 1 (one) tablet by mouth at bedtime Mnmhekvmexg-Pwdiozrmc-M it C-Mn (GLUCOSAMINE CHONDR 1500 COMPLX PO) [...] - 05/04/2016 1:58 PM CST JOSE Deng [id number] 05/04/2016 Diagnosis: Rheumatoid arthritis without rheumatoid factor, multiple sites [M06.09]. Pt denies symptoms of infection or antibiotic use, no open wounds, or recent surgery, or plans for surgery in the next couple of weeks. Pt is aware that we use the 0-10 pain scale to assess discomfort. 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 frontload driver pt signs consent for treatment for [...] Next treatment? 4 weeks Jody Sahu RN [place] PERFORMANCE COACH documented in this encounter Plan of Treatment Upcoming Encounters Date Type Department Care Team (Late st Contact Info) Description 06/03/2024 1:00 PM RETAIL PERFORMANCE COACH Appointment [facility] - Rheumatology [address] [place] [address] 06/03/2024 2:00 PM RETAIL PERFORMANCE COACH Office Visit [facility] - Rheumatology [address] [place] [address] Gloria Smith MD [address] [place] [address] documented as of this encounter Visit Diagnoses [...] 24hrs RT $ Given 05/04/2016 1:45 PM RETAIL PERFORMANCE COACH 800 mg documented in this encounter Care Teams Banquet Bartender Relationship Specialty Start Date End Date Tomas Hyman MD [address] [facility] [address] [place] [address] PCP - General Family Medicine 12/31/13 05/09/18 Isidro Heredia MD Rheumatology 02/09/11 documented as of this encounter
--- OUTSIDE RECORDS SUMMARY | 2024-05-03 09:04 | XMS_ITS | Encounter Summary ---
Author Organization [facility] Address [address] [place] [address] Care Team Providers Care Pulverizer Operator Name Role Phone Isidro Heredia MD Unavailable [phone] Tomas Hyman MD Primary Care Provider [phone] Reason for Visit * Treatment (Routine) - Closed Specialty Diagnoses / Procedures Referred By Lawrence shah Referred To Contact Infusion Therapy Nurse Diagnoses Rheumatoid arthritis without rheumatoid factor, multiple sites (HCC) Procedures [place] INJECTION TOCILIZUMAB 1 MG Isidro Heredia MD 15 [place] [address] [address] Referral ID Status Reason Start Date Expiration Date Visits Re quested Visits Authorized [id number] Closed 12/16/2015 06/07/2016 1 6 Encounter Details Date Type Department Care Team (Late st Contact Info) Description 04/06/2016 1:57 PM DYE MAKER - 04/06/2016 11:59 PM DYE MAKER Hospital Encounter [facility] Medical [facility] - Rheumatology [address] [place] [address] Isidro Heredia MD [address] [place] [address] Discharge Disposition: Home or Self [...] Comments Blood Pressure 145/74 04/06/2016 3:05 PM DYE MAKER Pulse 92 04/06/2016 3:05 PM DYE MAKER Temperature 37 ??C (98.6 ??F) 04/06/2016 2:24 PM DYE MAKER Respiratory Rate 16 04/06/2016 2:24 PM DYE MAKER Oxygen Saturation - - Inhaled Oxygen Concentration - - Weight - - Height - - Body Mass Index - - documented in this encounter Discharge Instructions * Discharge Instructions* Jody Sahu RN - 04/06/2016 2:39 PM DYE MAKER [place] Rheumatology Post Infusion instructions You have received [...] through Sunday 9-5 call the office at [phone] After hours or on the weekend call the exchange at [phone] If you have had lab work done [...] Center as your provider. 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 Pt denies symptoms of infection or antibiotic use, no open wounds, or recent surgery, or plans for surgery in the next couple of weeks. Pt is aware that we use the 0-10 pain scale to assess discomfort. 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 computer help desk specialist pt signs consent for treatment [...] Next treatment? 4 weeks Jody Sahu RN MAKER documented in this encounter Plan of Treatment Upcoming Encounters Date Type Department Care Team (Late st Contact Info) Description 06/03/2024 1:00 PM DYE MAKER Appointment [facility] - Rheumatology [address] [place] [address] 06/03/2024 2:00 PM DYE MAKER Office Visit [facility] - Rheumatology [address] [place] [address] Gloria Smith MD [address] [place] [address] documented as of this encounter Visit [...] 24hrs RT $ Given 04/06/2016 2:50 PM DYE MAKER 800 mg documented in this encounter Care Teams Pulverizer Operator Relationship Specialty Start Date End Date Tomas Hyman MD [address] [place] [address] PCP - General Family Medicine 12/31/13 05/09/18 Isidro Heredia MD Rheumatology 02/09/11 documented as of this encounter
--- OUTSIDE RECORDS SUMMARY | 2024-05-03 09:04 | XMS_ITS | Encounter Summary ---
Author Organization [facility] Address [address] [facility] [place] [address] Care Team Providers Care Dealmaker Name Role Phone Isidro Heredia MD Unavailable Tomas Hyman MD Primary Care Provider [phone] Reason for Visit * Treatment (Routine) - Closed Specialty Diagnoses / Procedures Referred By Lawrence shah Referred To Contact Infusion Therapy Nurse Diagnoses Rheumatoid arthritis without rheumatoid factor, multiple sites (HCC) Procedures [place] INJECTION TOCILIZUMAB 1 MG Isidro Heredia MD [address] [facility] [place] [address] [address] Referral ID Status Reason Start Date Expiration Date Visits Re quested Visits Authorized [id number] Closed 06/26/2016 07/28/2016 1 6 Encounter Details Date Type Department Care Team (Late st Contact Info) Description 07/27/2016 1:00 PM CDT - 07/27/2016 11:59 PM CDT Hospital Encounter [facility] Medical [facility] - Rheumatology [address] [place] [address] Isidro Heredia MD [address] [facility] [place] [address] Discharge Disposition: Home or Self [...] Sahu RN - 07/27/2016 1:[address] Rheumatology Post Infusion instructions [...] Sunday through 01-02 call the office at [phone] After hours or on the weekend call the exchange at [phone] If you have had lab work done [...] 1 (one) tablet by mouth at bedtime Mpnsvsftoya-Wtucamuxd-R it C-Mn (GLUCOSAMINE CHONDR 1500 COMPLX PO) [...] - 07/27/2016 1:36 PM CDT JOSE Deng [id number] 07/27/2016 Diagnosis: Rheumatoid arthritis without rheumatoid factor, [...] st Contact Info) Description 06/03/2024 1:00 PM DOWNSTREAM BIOMANUFACTURING TECHNICIAN Appointment [facility] - Rheumatology [address] [place] [address] 06/03/2024 2:00 PM DOWNSTREAM BIOMANUFACTURING TECHNICIAN Office Visit [facility] - Rheumatology [address] [place] [address] Gloria Smith MD [address] [place] [phone] documented as of this encounter Visit [...] mg documented in this encounter Care Teams Dealmaker Relationship Specialty Start Date End Date Tomas Hyman MD [address] [place] [address] PCP - General Family Medicine 12/31/13 05/09/18 Isidro Heredia MD Rheumatology 02/09/11 documented as of this encounter
--- OUTSIDE RECORDS SUMMARY | 2024-05-03 09:04 | XMS_ITS | Encounter Summary ---
Author Organization [facility] Address [address] [facility] [place] [address] Care Team Providers Care Biomass Facilitator Name Role Phone Isidro Heredia MD Unavailable Tomas Hyman MD Primary Care Provider [phone] Reason for Visit * Treatment (Routine) - Closed Specialty Diagnoses / Procedures Referred By Lawrence shah Referred To Contact Infusion Therapy Nurse Diagnoses Rheumatoid arthritis without rheumatoid factor, multiple sites (HCC) Procedures [place] INJECTION TOCILIZUMAB 1 MG Isidro Heredia MD [address] [place] [address] [address] Referral ID Status Reason Start Date Expiration Date Visits Re quested Visits Authorized [id number] Closed 06/26/2016 07/28/2016 1 6 Encounter Details Date Type Department Care Team (Late st Contact Info) Description 06/29/2016 1:30 PM TIP INSERTER - 06/29/2016 11:59 PM TIP INSERTER Hospital Encounter [facility] Medical [facility] - Rheumatology [address] [place] [address] Isidro Heredia MD [address] [place] [address] Discharge Disposition: Home or Self [...] Comments Blood Pressure 125/84 06/29/2016 2:00 PM TIP INSERTER Pulse 80 06/29/2016 2:00 PM TIP INSERTER Temperature 36.8 ??C (98.2 ??F) 06/29/2016 2:00 PM CS T Respiratory Rate 16 06/29/2016 2:00 PM TIP INSERTER Oxygen Saturation - - Inhaled Oxygen Concentration - - Weight 116.6 kg (257 lb) 06/29/2016 2:00 PM TIP INSERTER Height - - Body Mass Index 36.88 01/11/2016 3:12 PM CDT documented in this encounter Discharge Instructions * Discharge Instructions* Carlos Foreman RN - 06/29/2016 2:22 PM TIP INSERTER [place] Rheumatology Post Infusion instructions You have [...] Sunday through 01-02 call the office at [phone] After hours or on the weekend call the exchange at [phone] If you have had lab work done [...] Hospital as your provider. Carlos Foreman RN INSERTER documented in this encounter Medications at Time of Discharge Medication Sig Dispensed Refills Start Date End Date atorvastatin (LIPITOR) 40 MG tablet Take 1 (one) tablet by mouth at bedtime Ecuvohzxubq-Okdswwifb-T it C-Mn (GLUCOSAMINE CHONDR 1500 COMPLX PO) [...] - 06/29/2016 2:17 PM CST JOSE Chalino Deng [id number] 06/29/2016 Diagnosis: Rheumatoid arthritis without rheumatoid factor, [...] Yes Next treatment? 4wk Carlos Foreman RN INSERTER documented in this encounter Plan of Treatment Upcoming Encounters Date Type Department Care Team (Late st Contact Info) Description 06/03/2024 1:00 PM TIP INSERTER Appointment [facility] - Rheumatology [address] [place] [address] [phone] 06/03/2024 2:00 PM TIP INSERTER Office Visit [facility] - Rheumatology [address] [place] [address] [phone] Gloria Smith MD [address] [place] [phone] documented as of this encounter Visit Diagnoses [...] 24hrs RT $ Given 06/29/2016 2:10 PM TIP INSERTER 800 mg 100 mL/hr documented in this encounter Care Teams Biomass Facilitator Relationship Specialty Start Date End Date Tomas Hyman MD [address] [place] [address] PCP - General Family Medicine 12/31/13 05/09/18 Isidro Heredia MD Rheumatology 02/09/11 documented as of this encounter
--- OUTSIDE RECORDS SUMMARY | 2024-05-03 09:04 | XMS_ITS | Encounter Summary ---
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, multiple sites (HCC) Procedures [place] INJECTION TOCILIZUMAB 1 MG Isidro Heredia MD [address] [place] [address] [address] Referral ID Status Reason Start Date Expiration Date Visits Re quested Visits Authorized [id number] Closed 08/07/2016 04/29/2017 1 12 Encounter Details Date Type Department Care Team (Late st Contact Info) Description 09/21/2016 1:30 PM CDT - 09/21/2016 3:45 PM CDT Hospital Encounter [facility] Medical [facility] - Rheumatology [address] [place] [address] Isidro Heredia MD [address] [place] [address] Discharge Disposition: Home or Self [...] - 09/21/2016 3:04 PM CDT Discharge Instructions [facility] Rheumatology You [...] through Sunday 9-5 call the office at [phone]. After hours or on the weekend call [...] 1 (one) tablet by mouth at bedtime Fcmnmhtlwaq-Ovystvofa-O it C-Mn (GLUCOSAMINE CHONDR 1500 COMPLX PO) [...] st Contact Info) Description 06/03/2024 1:00 PM EVALUATION ASSISTANT Appointment [facility] - Rheumatology [address] [place] [address] 06/03/2024 2:00 PM EVALUATION ASSISTANT Office Visit [facility] - Rheumatology [address] [place] [address] Gloria Smith MD [address] [place] [phone] documented as of this encounter Visit [...] documented in this encounter Care Teams Administrative Support Associate Relationship Specialty Start Date End Date Tomas Hyman MD [address] [place] [address] PCP - General Family Medicine 12/31/13 05/09/18 Isidro Heredia MD Rheumatology 02/09/11 documented as of this encounter
--- OUTSIDE RECORDS SUMMARY | 2024-05-03 09:04 | XMS_ITS | Encounter Summary ---
Author Organization [facility] Address [address] [facility] [place] [address] Care Team Providers Care Road Commissioner Name Role Phone Isidro Heredia MD Unavailable [phone] Tomas Hyman MD Primary Care Provider [phone] Reason for Visit * Reason Onset Date Comments MEDICATION REFILL 03/02/2016 Encounter Details Date Type Department Care Team (Late Contact Info) Description 03/02/2016 Refill [facility] - Rheumatology [address] [place] [address] Isidro Heredia MD [address] [place] [address] MEDICATION REFILL Social History Tobacco Use [...] (Late Contact Info) Description 06/03/2024 1:00 PM SECURITY ORDERLY Appointment [facility] - Rheumatology [address] [place] [address] 06/03/2024 2:00 PM SECURITY ORDERLY Office Visit [facility] - Rheumatology [address] [place] [address] Gloria Smith MD [address] [place] [phone] documented as of this encounter Visit Diagnoses Not on filedocumented in this encounter Care Teams Road Commissioner Relationship Specialty Start Date End Date Tomas Hyman MD [address] [place] [address] PCP - General Family Medicine 12/31/13 05/09/18 Isidro Heredia MD Rheumatology 02/09/11 documented as of this encounter
--- OUTSIDE RECORDS SUMMARY | 2024-05-03 09:04 | XMS_ITS | Encounter Summary ---
Author Organization [facility] Address [address] [facility] [place] [address] Care Team Providers Care Service Parts Coordinator Name Role Phone Isidro Heredia MD Unavailable Tomas Hyman MD Primary Care Provider [phone] Encounter Details Date Type Department Care Team (Late st Contact Info) Description 06/29/2016 Orders Only [facility] Medical [facility] - Rheumatology [address] [place] [address] [phone] Isidro Heredia MD [address] [place] [address] Rheumatoid arthritis of multiple sites with [...] sent via my chart regarding lab results EL OPENER * Isidro Heredia MD - 07/02/2016 12:51 PM CST mtx ok meron EL OPENER documented in this encounter Plan of Treatment Upcoming Encounters Date Type Department Care Team (Late st Contact Info) Description 06/03/2024 1:00 PM MUSSEL OPENER Appointment [facility] - Rheumatology [address] [place] [address] [phone] 06/03/2024 2:00 PM MUSSEL OPENER Office Visit [facility] - Rheumatology [address] [place] [address] Gloria Smith MD [address] [place] [address] [phone] documented as of this encounter Procedures Procedure Name Priority Date/Time Associated Diagnosis Comments ERYTHROCYTE SEDIMENTATION RATE Routine 06/29/2016 1:30 AM MUSSEL OPENER Rheumatoid arthritis of multiple sites with negative rheumatoid factor (HCC) CBC W AUTO DIFFERENTIAL Routine 06/29/2016 1:30 AM MUSSEL OPENER Rheumatoid arthritis of multiple sites with negative rheumatoid factor (HCC) COMPREHENSIVE METABOLIC PANEL Routine 06/29/2016 1:30 AM MUSSEL OPENER Rheumatoid arthritis of multiple sites with negative rheumatoid factor (HCC) documented in this encounter Results * SED RATE WESTERGREN (06/29/2016 1:30 AM MUSSEL OPENER) Erythrocyte Sedimentation Rate Westergren 10 0 - 30 mm/hr [facility] INSURANCE BILL Blood BLOOD SPECIMEN / Unknown 06/29/2016 1:30 AM MUSSEL OPENER 06/29/2016 Narrative Resulting Agency Comment [facility] [address] ??[facility]ly [facility] [phone] Isidro Heredia MD LAB - HEMATOLOGY OR DERABLES [facility] INSURANCE BILL [address] [place] [address] * (ABNORMAL) COMPREHENSIVE METABOLIC PANEL (06/29/2016 1:30 AM MUSSEL OPENER) Glucose 101(H) 65 - 99 mg/dL [facility] [...] BLOOD SPECIMEN / Unknown 06/29/2016 1:30 AM MUSSEL OPENER 06/29/2016 Narrative Resulting Agency Comment [facility] [address] [facility] ??[facility] [phone] Isidro Heredia MD LAB - CHEMISTRY ORD ERABLES [facility] INSURANCE BILL [address] [place] [address] * CBC W AUTO DIFFERENTIAL (06/29/2016 1:30 AM MUSSEL OPENER) Pathologist [facility] WBC 8.7 3.4 - 10.8 x10E3/uL [facility] [...] BLOOD SPECIMEN / Unknown 06/29/2016 1:30 AM MUSSEL OPENER 06/29/2016 Narrative Resulting Agency Comment [facility] [address] [facility] ??[facility] [phone] Isidro Heredia MD LAB - HEMATOLOGY OR DERABLES [facility] INSURANCE BILL [address] [place] [address] documented in this encounter Visit Diagnoses Diagnosis Rheumatoid arthritis of multiple sites with negative rheumatoid factor (HCC)- Primary documented in this encounter Care Teams Service Parts Coordinator Relationship Specialty Start Date End Date Tomas Hyman MD [address] [place] [address] PCP - General Family Medicine 12/31/13 05/09/18 Isidro Heredia MD Rheumatology 02/09/11 documented as of this encounter
--- OUTSIDE RECORDS SUMMARY | 2024-05-03 09:04 | XMS_ITS | Encounter Summary ---
Author Organization [facility] Address [address] [place] [address] Care Team Providers Care Field Mechanic Name Role Phone Isidro Heredia MD Unavailable [phone] Tomas Hyman MD Primary Care Provider [phone] Reason for Visit * Reason Comments Refill Request Encounter Details Date Type Department Care Team (Late Contact Info) Description 06/19/2016 Refill [facility] - Rheumatology [address] [place] [address] Isidro Heredai MD [address] [place] [address] Refill Request Social History Tobacco Use [...] (Late Contact Info) Description 06/03/2024 1:00 PM REPORTER ANCHOR Appointment [facility] - Rheumatology [address] [place] [address] 06/03/2024 2:00 PM REPORTER ANCHOR Office Visit [facility] Rheumatology [address] [place] [address] Gloria Smith MD [address] [place], [place] [address] [address] documented as of this encounter Visit Diagnoses Not on filedocumented in this encounter Care Teams Field Mechanic Relationship Specialty Start Date End Date Tomas Hyman MD [address] [place] [address] PCP - General Family Medicine 12/31/13 05/09/18 Isidro Heredia MD Rheumatology 02/09/11 documented as of this encounter
--- OUTSIDE RECORDS SUMMARY | 2024-05-03 09:04 | XMS_ITS | Encounter Summary ---
Author Organization [facility] Address [address] [facility] [place] [address] Care Team Providers Care Motor Route Carrier Name Role Phone Isidro Heredia MD Unavailable [phone] Tomas Hyman MD Primary Care Provider [phone] Encounter Details Date Type Department Care Team (Late st Contact Info) Description 08/24/2016 Orders Only [facility] Medical [facility] - Rheumatology [address] [place] [address] [phone] Isidro Heredia MD [address] [place] [address] Rheumatoid arthritis involving right shoulder with [...] Contact Info) Description 06/03/2024 1:00 PM FLIGHT CONTROL MANAGER Appointment [facility] - Rheumatology [address] [place] [address] 06/03/2024 2:00 PM FLIGHT CONTROL MANAGER Office Visit [facility] - Rheumatology [address] [place] [address] Gloria Smith MD [address] [place] [phone] documented as of this encounter Procedures [...] CDT 08/24/2016 Narrative Resulting Agency Comment [facility] [address] ??[facility] [phone] Isidro Heredia MD LAB - CHEMISTRY ORD ERABLES [facility] INSURANCE BILL [address] [place] [address] * SED RATE AUTO (ESR) (08/24/2016 1:00 PM CDT) Erythrocyte Sedimentation Rate Westergren 6 0 - 30 mm/hr [facility] INSURANCE BILL Blood BLOOD SPECIMEN / Unknown 08/24/2016 1:00 PM CDT 08/24/2016 Narrative Resulting Agency Comment [facility] [id number] [facility] ??[facility] [phone] Isidro Heredia MD LAB - HEMATOLOGY OR DERABLES Performing Organization Address City/[facility]/ZIP Co de Phone Number [facility] INSURANCE BILL [address] [place] [address] * (ABNORMAL) COMPREHENSIVE METABOLIC PANEL (08/24/2016 1:00 [...] CDT 08/24/2016 Narrative Resulting Agency Comment [facility] [address] [facility] ??[facility] [phone] Isidro Heredia MD LAB - CHEMISTRY ORD ERABLES [facility] INSURANCE BILL [address] [place] [address] * CBC W AUTO DIFFERENTIAL (08/24/2016 1:00 [...] CDT 08/24/2016 Narrative Resulting Agency Comment [facility] [address] [facility] ??[facility] [phone] Isidro Heredia MD LAB - HEMATOLOGY OR DERABLES [facility] INSURANCE BILL [address] [place] [address] documented in this encounter Visit Diagnoses Diagnosis 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
--- OUTSIDE RECORDS SUMMARY | 2024-05-03 09:04 | XMS_ITS | Encounter Summary ---
Author Organization [facility] Address [address] [facility] [place] [address] Care Team Providers Care Trigonometry Tutor Name Role Phone Isidro Heredia MD Unavailable Tomas Hyman MD Primary Care Provider [phone] Reason for Visit * Reason Comments Narcotic Refill percocet * Evaluate & Treat (Routine) - Closed Specialty Diagnoses / Procedures Referred By Contsarahi t Referred To Contact Diagnoses Rheumatoid arthritis, unspecified (HCC) Procedures OK OFFICE VISIT DURING HOURS Tomas Hyman MD [address] [place] [address] Isidro Heredia MD [address] [place] [address] Referral ID Status Reason Start Date Expiration Date Visits Re quested Visits Authorized [id number] Closed 06/15/2016 06/15/2017 6 6 Encounter Details Date Type Department Care Team (Late st Contact Info) Description 07/27/2016 1:30 PM CDT Office Visit [facility] - Rheumatology [address] [place] [address] Isidro Heredia MD [address] [place] [address] Chronic right-sided low back pain with [...] on actemra mtx for ra a and hjmw3ylr neuontin skelaxin Pain Level 7/10 right shoulder [...] 1 Tab by mouth once daily ??? Ioddkimdjld-Yssoabvgp-Gsf C-Mn (GLUCOSAMINE CHONDR 1500 COMPLX PO) Take [...] st Contact Info) Description 06/03/2024 1:00 PM CORDUROY BRUSHER OPERATOR Appointment [facility] - Rheumatology [address] [place] [phone] 06/03/2024 2:00 PM CORDUROY BRUSHER OPERATOR Office Visit [facility] - Rheumatology [address] [place] [address] [phone] Gloria Smith MD [address] [place] [address] documented as of this encounter Visit [...] deltoid documented in this encounter Care Teams Trigonometry Tutor Relationship Specialty Start Date End Date Tomas Hyman MD [address] [facility] [address] [place] [address] PCP - General Family Medicine 12/31/13 05/09/18 Isidro Heredia MD Rheumatology 02/09/11 documented as of this encounter
--- OUTSIDE RECORDS SUMMARY | 2024-05-03 09:04 | XMS_ITS | Encounter Summary ---
Author Organization [facility] Address [address] [facility] [place] [address] Care Team Providers Care Creative Services Producer Name Role Phone Isidro Heredia MD Unavailable [phone] Tomas Hyman MD Primary Care Provider [phone] Reason for Visit * Reason Comments Refill Request Encounter Details Date Type Department Care Team (Late Contact Info) Description 09/19/2016 Refill [facility] - Rheumatology [address] [place] [address] Isidro Heredia MD [address] [place] [address] Refill Request Social History Tobacco Use [...] (Late Contact Info) Description 06/03/2024 1:00 PM FINAL EXPENSE AGENT Appointment [facility] - Rheumatology [address] [place] [address] 06/03/2024 2:00 PM FINAL EXPENSE AGENT Office Visit [facility] Rheumatology [address] [place] [address] Gloria Smith MD [address] [place], [place] [address] [address] documented as of this encounter Visit Diagnoses Not on filedocumented in this encounter Care Teams Creative Services Producer Relationship Specialty Start Date End Date Tomas Hyman MD [address] [place] [address] PCP - General Family Medicine 12/31/13 05/09/18 Isidro Heredia MD Rheumatology 02/09/11 documented as of this encounter
--- OUTSIDE RECORDS SUMMARY | 2024-05-03 09:04 | XMS_ITS | Encounter Summary ---
Author Organization [facility] Address [address] [facility] [place] [address] Care Team Providers Care Mosaic Worker Name Role Phone Isidro Heredia MD Unavailable [phone] Tomas Hyman MD Primary Care Provider [phone] Encounter Details Date Type Department Care Team (Latest Contact Info) Description 05/16/2016 11:01 AM SCALLOP RAKER - 05/16/2016 11:59 PM SCALLOP RAKER Hospital Encounter [facility] [address] [place] [address] [place] [address] [place] [phone] Discharge Disposition: Home or Self Care Social [...] Comments Blood Pressure 143/87 05/16/2016 11:34 AM SCALLOP RAKER Pulse 98 05/16/2016 11:34 AM SCALLOP RAKER Temperature - - Respiratory Rate 16 05/16/2016 11:34 AM SCALLOP RAKER Oxygen Saturation 98% 05/16/2016 11:34 AM SCALLOP RAKER Inhaled Oxygen Concentration - - Weight - - Height - - Body Mass Index - - documented in this encounter Discharge Instructions * Patient Instructions* Nena Pond RN - 05/16/2016 11:13 AM SCALLOP RAKER [facility] Pain Discharge Instructions [...] headache, or any other problems, please call [phone] or after hours callDr. Mirza at [phone] and tell them your physician's name. The exchange will alert the physician district extension service agent. If sedation is given: No sedation given. For Your Next Visit: No additional instructions. Other Instructions: May remove band-aid in 12 Hours. Return in one week for KIMBERLEY #2 LOP RAKER documented in this encounter Medications at Time of Discharge Medication Sig Dispensed Refills Start Date End Date atorvastatin (LIPITOR) 40 MG tablet Take 1 (one) tablet by mouth at bedtime Fvsgjaubryb-Jpplxkugx-E it C-Mn (GLUCOSAMINE CHONDR 1500 COMPLX PO) [...] Was reviewed today and no changes noted. LOP RAKER documented in this encounter Procedure Notes * [...] Coumadin, Plavix or other blood thinners. Responsible otr hazmat company driver is not needed due to the [...] Follow Up: 1 week Alejandro Mirza MD LOP RAKER documented in this encounter Plan of Treatment Upcoming Encounters Date Type Department Care Team (Late st Contact Info) Description 06/03/2024 1:00 PM SCALLOP RAKER Appointment [facility] - Rheumatology [address] [place] [address] 06/03/2024 2:00 PM SCALLOP RAKER Office Visit [facility] - Rheumatology [address] [place] [address] Gloria Smith MD [address] [place] [address] [phone] documented as of this encounter Procedures Procedure Name Priority Date/Time Associated Diagnosis Comments PAIN MANAGEMENT PROCEDURE TIME Routine 05/16/2016 11:33 AM SCALLOP RAKER Radiculopathy of lumbosacral region Low back pain with sciatica, sciatica laterality unspecified, unspecified back pain laterality, unspecified chronicity documented in this encounter Results * PAIN MANAGEMENT PROCEDURE TIME (05/16/2016 11:33 AM SCALLOP RAKER) Anatomical Region Laterality Modality X-Ray Angiograph y Narrative 05/16/2016 11:39 AM SCALLOP RAKER Alejandro Mirza MD ? 05/16/2016 11:39 AM [...] Coumadin, Plavix or other blood thinners. ??Responsible otr hazmat company driver is not needed due to the [...] Admin. by Other Provider 05/16/2016 11:30 AM SCALLOP RAKER 80 mg Back documented in this encounter Care Teams Mosaic Worker Relationship Specialty Start Date End Date Tomas Hyman MD [address] [facility] [address] [place] [address] PCP - General Family Medicine 12/31/13 05/09/18 Isidro Heredia MD Rheumatology 02/09/11 documented as of this encounter
--- OUTSIDE RECORDS SUMMARY | 2024-05-03 09:04 | XMS_ITS | Encounter Summary ---
Author Organization [facility] Address [address] [place] [address] Care Team Providers Care Glycerin Operator Name Role Phone Isidro Heredia MD Unavailable [phone] Tomas Hyman MD Primary Care Provider [phone] Encounter Details Date Type Department Care Team (Late st Contact Info) Description 09/21/2016 Orders Only [facility] Medical [facility] - Rheumatology [address] [place] [address] [phone] Isidro Heredia MD [address] [place] [address] Rheumatoid arthritis involving multiple sites, unspecified [...] Contact Info) Description 06/03/2024 1:00 PM BOX BENDER Appointment [facility] - Rheumatology [address] [place] [address] [phone] 06/03/2024 2:00 PM BOX BENDER Office Visit [facility] - Rheumatology [address] [place] [address] Gloria Smith MD [address] [place] [phone] documented as of this encounter Procedures Procedure [...] PM CDT 09/21/2016 Narrative Resulting Agency Comment [facility] [address] [address] ??[place] [phone] Isidro Heredia MD LAB - HEMATOLOGY OR DERABLES [facility] INSURANCE BILL [address] [place] [address] * (ABNORMAL) CBC W AUTO DIFFERENTIAL (09/21/2016 [...] PM CDT 09/21/2016 Narrative Resulting Agency Comment [facility] [place] [address] [address] ??[place] [phone] Isidro Heredia MD LAB - HEMATOLOGY OR DERABLES [facility] INSURANCE BILL [address] [place] [address] * COMPREHENSIVE METABOLIC PANEL (09/21/2016 3:59 PM [...] PM CDT 09/21/2016 Narrative Resulting Agency Comment [facility] [address] [address] ??[place] [phone] Isidro Heredia MD LAB - CHEMISTRY ORD ERABLES [facility] INSURANCE BILL [address] [place] [address] documented in this encounter Visit Diagnoses Diagnosis Rheumatoid arthritis involving multiple sites, unspecified rheumatoid factor presence (HCC)- Primary documented in this encounter Care Teams Glycerin Operator Relationship Specialty Start Date End Date Tomas Hyman MD [address] [place] [address] PCP - General Family Medicine 12/31/13 05/09/18 Isidro Heredia MD Rheumatology 02/09/11 documented as of this encounter
--- OUTSIDE RECORDS SUMMARY | 2024-05-03 09:05 | XMS_ITS | Encounter Summary ---
Author Organization [facility] Address [address] [facility] [place] [address] Care Team Providers Care Customer Service Voice Name Role Phone Isidro Heredia MD Unavailable [phone] Tomas Hyman MD Primary Care Provider Encounter Details Date Type Department Care Team (Late st Contact Info) Description 12/14/2015 Orders Only [facility] Medical [facility] - Rheumatology [address] [place] [address] [phone] Isidro Heredia MD [address] [place] [address] Rheumatoid arthritis of multiple sites with [...] as of this encounter Progress Notes * Yamielth Rodríguez MA - 12/20/2015 11:06 AM CDTQuick Note: Message sent via my chart regarding lab results. * Isidro Heredia MD - 12/16/2015 12:21 PM CDTQuick Note: mtx ok meron documented in this encounter Plan of Treatment Upcoming Encounters Date Type Department Care Team (Late st Contact Info) Description 06/03/2024 1:00 PM LIQUOR RECTIFIER Appointment [facility] - Rheumatology [address] [place] [address] [phone] 06/03/2024 2:00 PM LIQUOR RECTIFIER Office Visit [facility] - Rheumatology [address] [place] [address] Gloria Smith MD [address] [place] [address] [phone] documented as of this encounter Procedures Procedure [...] PM CDT Narrative Resulting Agency Comment [facility] [address] [facility] ??[facility] [phone] Isidro Heredia MD LAB - HEMATOLOGY OR DERABLES [facility] INSURANCE BILL [address] [place] [address] * (ABNORMAL) COMPREHENSIVE METABOLIC PANEL (12/14/2015 2:44 [...] PM CDT Narrative Resulting Agency Comment [facility] [address] [facility] ??[facility] [phone] sIidro Heredia MD LAB - CHEMISTRY ORD ERABLES [facility] INSURANCE BILL [address] [place] [address] * (ABNORMAL) CBC W AUTO DIFFERENTIAL (12/14/2015 [...] PM CDT Narrative Resulting Agency Comment [facility] [address] [facility] ??[facility] [phone] Isidro Heredia MD LAB - HEMATOLOGY OR DERABLES [facility] INSURANCE BILL [address] [place] [address] documented in this encounter Visit Diagnoses Diagnosis Rheumatoid arthritis of multiple sites with negative rheumatoid factor (HCC)- Primary documented in this encounter Care Teams Customer Service Voice Relationship Specialty Start Date End Date Tomas Hyman MD [address] [facility] [address] [place] [address] PCP - General Family Medicine 12/31/13 05/09/18 Isidro Heredia MD Rheumatology 02/09/11 documented as of this encounter
--- OUTSIDE RECORDS SUMMARY | 2024-05-03 09:05 | XMS_ITS | Encounter Summary ---
Author Organization [facility] Address [address] [facility] [place] [address] Care Team Providers Care Scrap Iron Cutter Name Role Phone Isidro Heredia MD Unavailable [phone] Tomas Hyman MD Primary Care Provider [phone] Reason for Visit * Treatment (Routine) - Closed Specialty Diagnoses / Procedures Referred By Lawrence shah Referred To Contact Infusion Therapy Nurse Diagnoses Rheumatoid arthritis without rheumatoid factor, multiple sites (HCC) Procedures [place] INJECTION TOCILIZUMAB 1 MG Isidro Heredia MD [address] [place] [address] [address] Referral ID Status Reason Start Date Expiration Date Visits Re quested Visits Authorized [id number] Closed 12/16/2015 06/07/2016 1 6 Encounter Details Date Type Department Care Team (Late st Contact Info) Description 01/11/2016 1:59 PM CDT - 01/11/2016 11:59 PM CDT Hospital Encounter [facility] Medical [facility] - Rheumatology [address] [place] [address] Isidro Heredia MD [address] [place] [address] Discharge Disposition: Home or Self [...] Sahu RN - 01/11/2016 2:16 PM CDT NE Rheumatology Post Infusion instructions You have [...] Sunday through 01-02 call the office at [phone] After hours or on the weekend call the exchange at [phone] If you have had lab work done [...] 1 (one) tablet by mouth at bedtime Deptfyicgyz-Yofmcenda-U it C-Mn (GLUCOSAMINE CHONDR 1500 COMPLX PO) [...] - 01/11/2016 2:20 PM CDT JOSE Deng [id number] 01/11/2016 Diagnosis: Rheumatoid arthritis without rheumatoid factor, [...] st Contact Info) Description 06/03/2024 1:00 PM COLOR SPECIALIST Appointment [facility] - Rheumatology [address] [place] [address] 06/03/2024 2:00 PM COLOR SPECIALIST Office Visit [facility] - Rheumatology [address] [place] [address] Gloria Smith MD [address] [place] [phone] documented as of this encounter Visit Diagnoses [...] mL/hr documented in this encounter Care Teams Scrap Iron Cutter Relationship Specialty Start Date End Date Tomas Hyman MD [address] [facility] [address] [place] [address] PCP - General Family Medicine 12/31/13 05/09/18 Isidro Heredia MD Rheumatology 02/09/11 documented as of this encounter
--- OUTSIDE RECORDS SUMMARY | 2024-05-03 09:05 | XMS_ITS | Encounter Summary ---
Author Organization [facility] Address [address] [place] [address] Care Team Providers Care Heart Doctor Name Role Phone Isidro Heredia MD Unavailable [phone] Tomas Hyman MD Primary Care Provider [phone] Reason for Visit * Treatment (Routine) - Closed Specialty Diagnoses / Procedures Referred By Lawrence shah Referred To Contact Infusion Therapy Nurse Diagnoses Rheumatoid arthritis(714.0) (HCC) Rheumatoid arthritis without rheumatoid factor, multiple sites (HCC) Procedures [place] INFLIXIMAB INJECTION [place] INJECTION TOCILIZUMAB 1 MG Isidro Heredia MD [address] [place] [address] [address] Referral ID Status Reason Start Date Expiration Date Visits Re quested Visits Authorized [id number] Closed 01/07/2015 01/08/2016 1 12 Encounter Details Date Type Department Care Team (Late st Contact Info) Description 11/16/2015 1:50 PM CDT - 11/16/2015 11:59 PM CDT Hospital Encounter [facility] Medical [facility] - Rheumatology [address] [place] [address] Isidro Heredia MD [address] [place] [address] Discharge Disposition: Home or Self [...] Sahu RN - 11/16/2015 2:13 PM CDT [place] Rheumatology Post Infusion instructions You [...] Sunday through Sunday- call the office at [phone] After hours or on the weekend call the exchange at [phone] If you have had lab work done [...] 1 (one) tablet by mouth at bedtime Sraneynmibf-Hifilsnvg-T it C-Mn (GLUCOSAMINE CHONDR 1500 COMPLX PO) [...] - 11/16/2015 2:32 PM CDT JOSE Deng [id number] 11/16/2015 Diagnosis: Rheumatoid arthritis without rheumatoid factor, [...] Contact Info) Description 06/03/2024 1:00 PM HOUSING GRANT ANALYST Appointment [facility] - Rheumatology [address] [place] [address] 06/03/2024 2:00 PM HOUSING GRANT ANALYST Office Visit [facility] - Rheumatology [address] [place] [address] Gloria Smith MD [address] [place] [phone] documented as of this encounter Visit [...] mL/hr documented in this encounter Care Teams Heart Doctor Relationship Specialty Start Date End Date Tomas Hyman MD 68[address] [facility] [address] [place] [address] PCP - General Family Medicine 12/31/13 05/09/18 Isidro Heredia MD Rheumatology 02/09/11 documented as of this encounter
--- OUTSIDE RECORDS SUMMARY | 2024-05-03 09:05 | XMS_ITS | Encounter Summary ---
Author Organization [facility] Address [address] [facility] [place] [address] Care Team Providers Care Crew Foreman Name Role Phone Isidro Heredia MD Unavailable [phone] Tomas Hyman MD Primary Care Provider [phone] Reason for Visit * Treatment (Routine) - Closed Specialty Diagnoses / Procedures Referred By Lawrence shah Referred To Contact [place] [address] [address] [facility] Pain Care [address] [place] [address] Referral ID Status Reason Start Date Expiration Date Visits Re quested Visits Authorized [id number] Closed 09/07/2015 03/05/2016 1 1 Encounter Details Date Type Department Care Team (Latest Contact Info) Description 09/07/2015 9:51 AM CDT - 09/07/2015 9:53 AM CDT Hospital Encounter [facility] Health Pain Care [address] [place] [address] [place] [address] [address] Discharge Disposition: Home or Self [...] Sig Dispensed Refills Start Date End Date Lomegdkiuwv-Samxozioj-Y it C-Mn (GLUCOSAMINE CHONDR 1500 COMPLX PO) [...] Contact Info) Description 06/03/2024 1:00 PM DIRECTOR PROJECT MANAGEMENT Appointment [facility] - Rheumatology [address] [place] [address] [phone] 06/03/2024 2:00 PM DIRECTOR PROJECT MANAGEMENT Office Visit [facility] - Rheumatology [address] [place] [address] [phone] Gloria Smith MD [address] [place] [phone] documented as of this encounter Visit Diagnoses Not on filedocumented in this encounter Care Teams Crew Foreman Relationship Specialty Start Date End Date Tomas Hyman MD [address] [facility] [address] [place] [address] PCP - General Family Medicine 12/31/13 05/09/18 Isidro Heredia MD Rheumatology 02/09/11 documented as of this encounter
--- OUTSIDE RECORDS SUMMARY | 2024-05-03 09:05 | XMS_ITS | Encounter Summary ---
Author Organization [facility] Address [address] [facility] [address] Care Team Providers Care Photographic Process Worker Name Role Phone Isidro Heredia MD Unavailable Tomas Hyman MD Primary Care Provider [phone] Reason for Visit * Treatment (Routine) - Closed Specialty Diagnoses / Procedures Referred By Lawrence shah Referred To Contact Infusion Therapy Nurse Diagnoses Rheumatoid arthritis(714.0) (HCC) Rheumatoid arthritis without rheumatoid factor, multiple sites (HCC) Procedures [place] INFLIXIMAB INJECTION PA INJECTION TOCILIZUMAB 1 MG Isidro Heredia MD [address] [place] [address] [address] Referral ID Status Reason Start Date Expiration Date Visits Re quested Visits Authorized [id number] Closed 01/07/2015 01/08/2016 1 12 Encounter Details Date Type Department Care Team (Late st Contact Info) Description 05/17/2015 2:40 PM ICE PLANT OPERATOR - 05/17/2015 11:59 PM ICE PLANT OPERATOR Hospital Encounter [facility] Medical [facility] - Rheumatology [address] [place] [address] Isidro Heredia MD [address] [place] [address] Discharge Disposition: Home or Self [...] Comments Blood Pressure 177/83 05/17/2015 3:35 PM ICE PLANT OPERATOR Pulse 85 05/17/2015 3:35 PM ICE PLANT OPERATOR Temperature 36.8 ??C (98.2 ??F) 05/17/2015 3:12 PM CS T Respiratory Rate 16 05/17/2015 3:12 PM ICE PLANT OPERATOR Oxygen Saturation - - Inhaled Oxygen Concentration - - Weight 115.8 kg (255 lb 6.4 oz) 05/17/2015 3:12 PM ICE PLANT OPERATOR Height - - Body Mass Index 36.65 04/07/2015 3:10 PM ICE PLANT OPERATOR documented in this encounter Discharge Instructions * Discharge Instructions* Jody Sahu RN - 05/17/2015 3:17 PM ICE PLANT OPERATOR [place] Rheumatology Post Infusion instructions You have [...] through Sunday 9-5 call the office at [phone] After hours or on the weekend call the exchange at [phone] If you have had lab work done [...] Hospital as your provider. Jody Sahu RN PLANT OPERATOR documented in this encounter Medications at Time of Discharge Medication Sig Dispensed Refills Start Date End Date Mdumvynunrw-Rpriutndr-J it C-Mn (GLUCOSAMINE CHONDR 1500 COMPLX PO) [...] 05/17/2015 3:33 PM CST JOSE Chalino Deng [id number] 05/17/2015 Diagnosis: Rheumatoid arthritis without rheumatoid factor, [...] treatment? 4 weeks Jody Sahu RN PLANT OPERATOR documented in this encounter Plan of Treatment Upcoming Encounters Date Type Department Care Team (Late st Contact Info) Description 06/03/2024 1:00 PM ICE PLANT OPERATOR Appointment [facility] - Rheumatology [address] [place] [address] 06/03/2024 2:00 PM ICE PLANT OPERATOR Office Visit [facility] - Rheumatology [address] [place] [address] Gloria Smith MD [address] [place] [phone] documented as of this encounter Visit Diagnoses [...] 24hrs RT $ Given 05/17/2015 3:20 PM ICE PLANT OPERATOR 800 mg 140 mL/hr documented in this encounter Care Teams Photographic Process Worker Relationship Specialty Start Date End Date Tomas Hyman MD [address] [facility] [address] [place] [address] PCP - General Family Medicine 12/31/13 05/09/18 Isidro Heredia MD Rheumatology 02/09/11 documented as of this encounter
--- OUTSIDE RECORDS SUMMARY | 2024-05-03 09:05 | XMS_ITS | Encounter Summary ---
Author Organization [facility] Address [address] [facility] [place] [address] Care Team Providers Care Director Fundraising Name Role Phone Isidro Heredia MD Unavailable [phone] Tomas Hyman MD Primary Care Provider [phone] Reason for Visit * Reason Comments Refill Request Encounter Details Date Type Department Care Team (Late Contact Info) Description 11/12/2015 Refill [facility] - Rheumatology [address] [place] [address] Isidro Heredia MD [address] [place] [address] Refill Request Social History Tobacco Use [...] (Late Contact Info) Description 06/03/2024 1:00 PM EARRINGS FABRICATOR Appointment [facility] - Rheumatology [address] [place] [address] 06/03/2024 2:00 PM EARRINGS FABRICATOR Office Visit [facility] Rheumatology [address] [place] [address] Gloria Smith MD [address] [place], [place] [address] [address] documented as of this encounter Visit Diagnoses Not on filedocumented in this encounter Care Teams Director Fundraising Relationship Specialty Start Date End Date Tomas Hyman MD [address] [place] [address] PCP - General Family Medicine 12/31/13 05/09/18 Isidro Heredia MD Rheumatology 02/09/11 documented as of this encounter
--- OUTSIDE RECORDS SUMMARY | 2024-05-03 09:05 | XMS_ITS | Encounter Summary ---
Author Organization [facility] Address [address] [facility] [place] [address] Care Team Providers Care Senior Occupational Therapist Name Role Phone Isidro Heredia MD Unavailable [phone] Tomas Hyman MD Primary Care Provider [phone] Reason for Visit * Reason Comments Refill Request Encounter Details Date Type Department Care Team (Late Contact Info) Description 09/13/2015 Refill [facility] - Rheumatology [address] [place] [address] Isidro Heredia MD [address] [place] [address] Refill Request Social History Tobacco Use [...] (Late Contact Info) Description 06/03/2024 1:00 PM MIDDLE SCHOOL COMBINATION TEACHER Appointment [facility] - Rheumatology [address] [place] [address] 06/03/2024 2:00 PM MIDDLE SCHOOL COMBINATION TEACHER Office Visit [facility] Rheumatology [address] [place] [address] Gloria Smith MD [address] [place], [place] [address] [address] documented as of this encounter Visit Diagnoses Not on filedocumented in this encounter Care Teams Senior Occupational Therapist Relationship Specialty Start Date End Date Tomas Hyman MD [address] [place] [address] PCP - General Family Medicine 12/31/13 05/09/18 Isidro Heredia MD Rheumatology 02/09/11 documented as of this encounter
--- OUTSIDE RECORDS SUMMARY | 2024-05-03 09:05 | XMS_ITS | Encounter Summary ---
Author Organization [facility] Address [address] [facility] [place] [address] Care Team Providers Care Software Packaging Engineer Name Role Phone Isidro Heredia MD Unavailable [phone] Tomas Hyman MD Primary Care Provider [phone] Reason for Visit * Treatment (Routine) - Closed Specialty Diagnoses / Procedures Referred By Lawrence shah Referred To Contact Infusion Therapy Nurse Diagnoses Rheumatoid arthritis(714.0) (HCC) Rheumatoid arthritis without rheumatoid factor, multiple sites (HCC) Procedures [place] INFLIXIMAB INJECTION SC INJECTION TOCILIZUMAB 1 MG Isidro Heredia MD [address] [place] [address] [address] Referral ID Status Reason Start Date Expiration Date Visits Re quested Visits Authorized [id number] Closed 01/07/2015 01/08/2016 1 12 Encounter Details Date Type Department Care Team (Late st Contact Info) Description 08/16/2015 3:37 PM CDT - 08/16/2015 11:59 PM CDT Hospital Encounter [facility] Medical [facility] - Rheumatology [address] [place] [address] Isidro Heredia MD [address] [place] [address] Discharge Disposition: Home or Self [...] Sahu RN - 08/16/2015 3:58 PM CDT [place] Rheumatology Post Infusion instructions You have received [...] through Sunday 9-5 call the office at [phone] After hours or on the weekend call the exchange at [phone] If you have had lab work done [...] Sig Dispensed Refills Start Date End Date Mcmcguhgqpy-Foouustli-D it C-Mn (GLUCOSAMINE CHONDR 1500 COMPLX PO) [...] - 08/16/2015 4:13 PM CDT JOSE Deng [id number] 08/16/2015 Diagnosis: Rheumatoid arthritis without rheumatoid factor, [...] Contact Info) Description 06/03/2024 1:00 PM CLINICAL PHYSICIAN ASSISTANT Appointment [facility] - Rheumatology [address] [place] [address] 06/03/2024 2:00 PM CLINICAL PHYSICIAN ASSISTANT Office Visit [facility] - Rheumatology [address] [place] [address] Gloria Smith MD [address] [place] [phone] documented as of this encounter Visit Diagnoses [...] mL/hr documented in this encounter Care Teams Software Packaging Engineer Relationship Specialty Start Date End Date Tomas Hyman MD 68[address] [facility] [address] [place] [address] PCP - General Family Medicine 12/31/13 05/09/18 Isidro Heredia MD Rheumatology 02/09/11 documented as of this encounter
--- OUTSIDE RECORDS SUMMARY | 2024-05-03 09:05 | XMS_ITS | Encounter Summary ---
Author Organization [facility] Address [address] [facility] [place] [address] Care Team Providers Care Print Shop Chief Clerk Name Role Phone Isidro Heredia MD Unavailable [phone] Tomas Hyman MD Primary Care Provider [phone] Encounter Details Date Type Department Care Team (Latest Contact Info) Description 09/07/2015 9:54 AM CDT - 09/07/2015 11:59 PM CDT Hospital Encounter [facility] Pain Care [address] [place] [address] [place] [address] [place] [address] Discharge Disposition: Home or Self Care Social [...] Pond RN - 09/07/2015 10:[address] [facility] Procedure Center Pain Discharge Instructions Selective [...] headache, or any other problems, please call [phone] or after hours callDr. Mirza at [phone] and tell them your physician's name. The exchange will alert the physician warning coordination meteorologist. If sedation is given: No sedation given. For Your Next Visit: No additional instructions. Other Instructions: May remove band-aid in 12 Hours. Return in one week for KIMBERLEY #2 documented in this encounter Medications at Time of Discharge Medication Sig Dispensed Refills Start Date End Date Ucmndlkjcyz-Deodbpowd-U it C-Mn (GLUCOSAMINE CHONDR 1500 COMPLX PO) [...] Coumadin, Plavix or other blood thinners. Responsible garbage truck driver is not needed due to [...] st Contact Info) Description 06/03/2024 1:00 PM AERONAUTICS COMMISSION DIRECTOR Appointment [facility] - Rheumatology [address] [place] [address] [phone] 06/03/2024 2:00 PM AERONAUTICS COMMISSION DIRECTOR Office Visit [facility] - Rheumatology [address] [place] [address] [phone] Gloria Smith MD [address] [place] [phone] documented as of this encounter Procedures Procedure [...] Coumadin, Plavix or other blood thinners. ??Responsible garbage truck driver is not needed due to [...] Back documented in this encounter Care Teams Print Shop Chief Clerk Relationship Specialty Start Date End Date Tomas Hyman MD [address] [facility] [address] [place] [address] PCP - General Family Medicine 12/31/13 05/09/18 Isidro Heredia MD Rheumatology 02/09/11 documented as of this encounter
--- OUTSIDE RECORDS SUMMARY | 2024-05-03 09:05 | XMS_ITS | Encounter Summary ---
Author Organization [facility] Address [address] [place] [address] Care Team Providers Care Copy Manager Name Role Phone Isidro Heredia MD Unavailable [phone] Tomas Hyman MD Primary Care Provider [phone] Reason for Visit * Treatment (Routine) - Closed Specialty Diagnoses / Procedures Referred By Lawrence shah Referred To Contact Infusion Therapy Nurse Diagnoses Rheumatoid arthritis(714.0) (HCC) Rheumatoid arthritis without rheumatoid factor, multiple sites (HCC) Procedures [place] INFLIXIMAB INJECTION [place] INJECTION TOCILIZUMAB 1 MG Isidro Heredia MD [address] [place] [address] [address] Referral ID Status Reason Start Date Expiration Date Visits Re quested Visits Authorized [id number] Closed 01/07/2015 01/08/2016 1 12 Encounter Details Date Type Department Care Team (Late st Contact Info) Description 10/13/2015 3:20 PM CDT - 10/13/2015 11:59 PM CDT Hospital Encounter [facility] Medical [facility] - Rheumatology [address] [place] [address] Isidro Heredia MD [address] [place] [address] Discharge Disposition: Home or Self [...] Sahu RN - 10/13/2015 4:06 PM CDT [place] Rheumatology Post Infusion instructions You have [...] through Sunday 9-5 call the office at [phone] After hours or on the weekend call the exchange at [phone] If you have had lab work done [...] chosen [facility] as your provider. Jody Sahu RN documented in this encounter Medications at Time of Discharge Medication Sig Dispensed Refills Start Date End Date Kiqerbuajso-Hwqdcdlpp-R it C-Mn (GLUCOSAMINE CHONDR 1500 COMPLX PO) [...] - 10/13/2015 4:34 PM CDT JOSE Deng [id number] 10/13/2015 Diagnosis: Rheumatoid arthritis without rheumatoid factor, multiple sites [M06.09]. Pt denies symptoms of infection or antibiotic use, no open wounds, or recent surgery, or plans for surgery in the next couple of weeks. Pt is aware that we use the 0-10 pain scale to assess discomfort. 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 medical front desk specialist pt signs consent for [...] st Contact Info) Description 06/03/2024 1:00 PM FUN HOUSE ATTENDANT Appointment [facility] - Rheumatology [address] [place] [address] 06/03/2024 2:00 PM FUN HOUSE ATTENDANT Office Visit [facility] - Rheumatology [address] [place] [address] Gloria Smith MD [address] [place] [phone] documented as of this encounter Visit Diagnoses [...] mL/hr documented in this encounter Care Teams Copy Manager Relationship Specialty Start Date End Date Tomas Hyman MD [address] [facility] [address] [place] [address] PCP - General Family Medicine 12/31/13 05/09/18 Isidro Heredia MD Rheumatology 02/09/11 documented as of this encounter
--- OUTSIDE RECORDS SUMMARY | 2024-05-03 09:05 | XMS_ITS | Encounter Summary ---
Author Organization [facility] Address [address] [place] [address] Care Team Providers Care Implementation Project Manager Name Role Phone Isidro Heredia MD Unavailable Tomas Hyman MD Primary Care Provider [phone] Reason for Visit * Reason Comments Rheumatoid Arthritis * Evaluate & Treat (Routine) - Closed Specialty Diagnoses / Procedures Referred By Lawrence t Referred To Contact Diagnoses Rheumatoid arthritis with rheumatoid factor, unspecified (HCC) Procedures ND OFFICE VISIT DURING HOURS Tomas Hyman MD [address] [place] [address] Isdiro Heredia MD [address] [place] [address] Referral ID Status Reason Start Date Expiration Date Visits Re quested Visits Authorized [id number] Closed 02/24/2015 02/24/2016 6 6 Encounter Details Date Type Department Care Team (Late st Contact Info) Description 10/13/2015 3:45 PM CDT Office Visit [facility] Medical [facility] - Rheumatology [address] [place] [address] Isidro Heredia MD [address] [place] [address] Encounter for long-term (current) use of [...] 1 Tab by mouth once daily ??? Pgslxnvlgas-Sbadmqyug-Fmq C-Mn (GLUCOSAMINE CHONDR 1500 COMPLX PO) Take [...] st Contact Info) Description 06/03/2024 1:00 PM SOUP PERSON Appointment [facility] - Rheumatology [address] [place] [address] [phone] 06/03/2024 2:00 PM SOUP PERSON Office Visit [facility] - Rheumatology [address] [place] [address] Gloria Smith MD [address] [place] [phone] documented as of this encounter Procedures Procedure [...] 6:21 PM CDT Narrative Resulting Agency Comment [facility] [address] ??Ziyad PENNY [phone] Isidro Heredia MD LAB - CHEMISTRY ORD ERABLES Performing Organization Address [facility] Co de Phone Number [facility] INSURANCE BILL [address] [place] [address] * SED RATE AUTO (ESR) (10/13/2015 3:30 PM CDT) Erythrocyte Sedimentation Rate Westergren 6 0 - 20 mm/hr [facility] INSURANCE BILL Blood specimen (specimen) BLOOD SPECIMEN / Unknown 10/13/2015 3:30 PM CDT 10/13/2015 6:21 PM CDT Narrative Resulting Agency Comment [facility] [address] ??Ziyad PENNY [phone] Isidro Heredia MD LAB - HEMATOLOGY OR DERABLES Performing Organization Address [facility] de Phone Number [facility] INSURANCE BILL [address] [place] [address] * TSH (10/13/2015 3:30 PM CDT) TSH 1.06 0.358 - 3.740 uIU/mL [facility] INSURANCE BILL Blood specimen (specimen) BLOOD SPECIMEN / Unknown 10/13/2015 3:30 PM CDT 10/13/2015 6:21 PM CDT Narrative Resulting Agency Comment [facility] [address] ??Ziyad PENNY [phone] Isidro Heredia MD LAB - CHEMISTRY ORD ERABLES Performing Organization Address [facility]/ZIP Co de Phone Number [facility] INSURANCE BILL [address] [place] [address] * (ABNORMAL) LIPID PROFILE W TCHOL/HDL (PO [...] 6:21 PM CDT Narrative Resulting Agency Comment [facility] [address] [facility] ??[place] [phone] Isidro Heredia MD LAB - CHEMISTRY ORD ERABLES [facility] INSURANCE BILL [address] [place] [address] * (ABNORMAL) COMPREHENSIVE METABOLIC PANEL (10/13/2015 3:30 [...] 6:21 PM CDT Narrative Resulting Agency Comment [facility] [address] ??[place] [id number] Isidro Heredia MD LAB - CHEMISTRY ORD ERABLES [facility] INSURANCE BILL [address] [place] [address] * (ABNORMAL) CBC W AUTO DIFFERENTIAL (10/13/2015 [...] 6:21 PM CDT Narrative Resulting Agency Comment [facility] [address] [facility] ??[facility] [id number] Isidro Heredia MD LAB - HEMATOLOGY OR DERABLES [facility] INSURANCE BILL [address] [place] [address] documented in this encounter Visit Diagnoses Diagnosis [...] thyroid documented in this encounter Care Teams Implementation Project Manager Relationship Specialty Start Date End Date Tomas Hyman MD [address] [facility] [address] [place] [address] PCP - General Family Medicine 12/31/13 05/09/18 Isidro Heredia MD Rheumatology 02/09/11 documented as of this encounter
--- OUTSIDE RECORDS SUMMARY | 2024-05-03 09:05 | XMS_ITS | Encounter Summary ---
Author Organization [facility] Address [address] [facility] [place] [address] Care Team Providers Care Buyer Liaison Name Role Phone Isidro Heredia MD Unavailable [phone] Tomas Hyman MD Primary Care Provider [phone] Encounter Details Date Type Department Care Team (Late st Contact Info) Description 01/11/2016 Orders Only [facility] Medical [facility] - Rheumatology [address] [place] [address] [phone] Isidro Heredia MD [address] [place] [address] Rheumatoid arthritis of multiple sites with [...] st Contact Info) Description 06/03/2024 1:00 PM INDEPENDENT FREIGHT AGENT Appointment [facility] - Rheumatology [address] [place] [address] [phone] 06/03/2024 2:00 PM INDEPENDENT FREIGHT AGENT Office Visit [facility] - Rheumatology [address] [place] [address] Gloria Smith MD [address] [place] [phone] documented as of this encounter Procedures [...] PM CDT Narrative Resulting Agency Comment [facility] [address] ??[facility] [phone] Isidro Heredia MD LAB - CHEMISTRY ORD [facility] Performing Organization Address City/State/[facility] Co de Phone Number [facility] INSURANCE BILL [address] [place] [address] documented in this encounter Visit Diagnoses Diagnosis Rheumatoid arthritis of multiple sites with negative rheumatoid factor (HCC)- Primary documented in this encounter Care Teams Buyer Liaison Relationship Specialty Start Date End Date Tomas Hyman MD [address] [place] [address] PCP - General Family Medicine 12/31/13 05/09/18 Isidro Heredia MD Rheumatology 02/09/11 documented as of this encounter
--- OUTSIDE RECORDS SUMMARY | 2024-05-03 09:05 | XMS_ITS | Encounter Summary ---
Author Organization [facility] Address [address] [place] [address] Care Team Providers Care Transfer Car Operator Name Role Phone Isidro Heredia MD Unavailable [phone] Tomas Hyman MD Primary Care Provider [phone] Reason for Visit * Treatment (Routine) - Closed Specialty Diagnoses / Procedures Referred By Lawrence shah Referred To Contact Infusion Therapy Nurse Diagnoses Rheumatoid arthritis(714.0) (HCC) Rheumatoid arthritis without rheumatoid factor, multiple sites (HCC) Procedures GA INFLIXIMAB INJECTION GA INJECTION TOCILIZUMAB 1 MG Isidro Heredia MD [address] [place] [address] [address] Referral ID Status Reason Start Date Expiration Date Visits Re quested Visits Authorized [id number] Closed 01/07/2015 01/08/2016 1 12 Encounter Details Date Type Department Care Team (Late st Contact Info) Description 09/13/2015 3:13 PM CDT - 09/13/2015 11:59 PM CDT Hospital Encounter [facility] Medical [facility] - Rheumatology [address] [place] [address] Isidro Heredia MD [address] [place] [address] Discharge Disposition: Home or Self [...] Sahu RN - 09/13/2015 3:44 PM CDT [place] Rheumatology Post Infusion instructions [...] through Sunday 9-5 call the office at [phone] After hours or on the weekend call the exchange at [phone] If you have had lab work done [...] Sig Dispensed Refills Start Date End Date Shcdnjskdbi-Mxlnqrstg-A it C-Mn (GLUCOSAMINE CHONDR 1500 COMPLX PO) [...] - 09/13/2015 4:01 PM CDT JOSE Deng [id number] 09/13/2015 Diagnosis: Rheumatoid arthritis without rheumatoid factor, multiple sites [M06.09]. Pt denies symptoms of infection or antibiotic use, no open wounds, or recent surgery, or plans for surgery in the next couple of weeks. Pt is aware that we use the 0-10 pain scale to assess discomfort. 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 assistant front office manager pt signs consent for [...] Contact Info) Description 06/03/2024 1:00 PM PACKAGING ASSEMBLER Appointment [facility] - Rheumatology [address] [place] [address] 06/03/2024 2:00 PM PACKAGING ASSEMBLER Office Visit [facility] - Rheumatology [address] [place] [address] Gloria Smith MD [address] [place] [phone] documented as of this encounter Visit Diagnoses [...] mL/hr documented in this encounter Care Teams Transfer Car Operator Relationship Specialty Start Date End Date Tomas Hyman MD [address] [facility] [address] [place] [address] PCP - General Family Medicine 12/31/13 05/09/18 Isidro Heredia MD Rheumatology 02/09/11 documented as of this encounter
--- OUTSIDE RECORDS SUMMARY | 2024-05-03 09:05 | XMS_ITS | Encounter Summary ---
Author Organization [facility] Address [address] [facility] [place] [address] Care Team Providers Care Production Line Solderer Name Role Phone Isidro Heredia MD Unavailable [phone] Tomas Hyman MD Primary Care Provider [phone] Reason for Visit * Reason Comments Refill Request Encounter Details Date Type Department Care Team (Late Contact Info) Description 12/14/2015 Refill [facility] - Rheumatology [address] [place] [address] Isidro Heredia MD [address] [place] [address] Refill Request Social History Tobacco Use [...] (Late Contact Info) Description 06/03/2024 1:00 PM SHOCK ABSORPTION FLOOR LAYER Appointment [facility] - Rheumatology [address] [place] [address] 06/03/2024 2:00 PM SHOCK ABSORPTION FLOOR LAYER Office Visit [facility] Rheumatology [address] [place] [address] Gloria Smith MD [address] [place] [address] [address] documented as of this encounter Visit Diagnoses Not on filedocumented in this encounter Care Teams Production Line Solderer Relationship Specialty Start Date End Date Tomas Hyman MD [address] [place] [address] PCP - General Family Medicine 12/31/13 05/09/18 Isidro Heredia MD Rheumatology 02/09/11 documented as of this encounter
--- OUTSIDE RECORDS SUMMARY | 2024-05-03 09:05 | XMS_ITS | Encounter Summary ---
Author Organization [facility] Address [address] [facility] [place] [address] Care Team Providers Care Physical Therapist Technician Name Role Phone Isidro Heredia MD Unavailable [phone] Tomas Hyman MD Primary Care Provider [phone] Encounter Details Date Type Department Care Team (Late st Contact Info) Description 06/14/2015 Orders Only [facility] Medical [facility] - Rheumatology [address] [place] [address] [phone] Isidro Heredia MD [address] [place] [address] Rheumatoid arthritis of multiple sites with [...] AM CSTQuick Note: Patient notified via mychart. SPORTATION SECURITY OFFICER * Isidro Heredia MD - 06/20/2015 9:14 PM CSTQuick Note: [facility]ol [facility] [address] [place] SPORTATION SECURITY OFFICER documented in this encounter Plan of Treatment Upcoming Encounters Date Type Department Care Team (Late st Contact Info) Description 06/03/2024 1:00 PM TRANSPORTATION SECURITY OFFICER Appointment [facility] - Rheumatology [address] [place] [address] [phone] 06/03/2024 2:00 PM TRANSPORTATION SECURITY OFFICER Office Visit [facility] - Rheumatology [address] [place] [address] Gloria Smith MD [address] [place] [phone] documented as of this encounter Procedures Procedure Name Priority Date/Time Associated Diagnosis Comments LIPID PROFILE W TCHOL/HDL Routine 06/14/2015 3:00 PM TRANSPORTATION SECURITY OFFICER Rheumatoid arthritis of multiple sites with negative rheumatoid factor (HCC) ERYTHROCYTE SEDIMENTATION RATE Routine 06/14/2015 3:00 PM TRANSPORTATION SECURITY OFFICER Rheumatoid arthritis of multiple sites with negative rheumatoid factor (HCC) CBC W AUTO DIFFERENTIAL Routine 06/14/2015 3:00 PM TRANSPORTATION SECURITY OFFICER Rheumatoid arthritis of multiple sites with negative rheumatoid factor (HCC) COMPREHENSIVE METABOLIC PANEL Routine 06/14/2015 3:00 PM TRANSPORTATION SECURITY OFFICER Rheumatoid arthritis of multiple sites with negative rheumatoid factor (HCC) documented in this encounter Results * (ABNORMAL) LIPID PROFILE W TCHOL/HDL (PO REF LAB) (06/14/2015 3:00 PM TRANSPORTATION SECURITY OFFICER) Cholesterol 202(H) <200 mg/dL [facility] INSURANCE BILL Triglycerides 321(H) <150 mg/dL [facility] INSURANCE BILL HDL Cholesterol 52 >40 mg/dL [facility] INSURANCE BILL VLDL Calculated 64(H) <=30 mg/dL [facility] INSURANCE BILL LDL Calculated 86 <130 mg/dL [facility] INSURANCE BILL Comment:LDL/HDL RATIO BLOOD ([facility]) 1.7 <5.0 Cholesterol/HDL Ratio 3.9 <4.5 [facility] INSURANCE BILL Blood specimen (specimen) BLOOD SPECIMEN / Unknown 06/14/2015 3:00 PM TRANSPORTATION SECURITY OFFICER 06/14/2015 7:27 PM TRANSPORTATION SECURITY OFFICER Narrative Resulting Agency Comment [facility] [address] ??[place] [phone] Isidro Heredia MD LAB - CHEMISTRY ORD ERABLES [facility] INSURANCE BILL * SED RATE WESTERGREN (06/14/2015 3:00 PM TRANSPORTATION SECURITY OFFICER) Erythrocyte Sedimentation Rate Westergren 4 0 - 20 mm/hr [facility] INSURANCE BILL Blood specimen (specimen) BLOOD SPECIMEN / Unknown 06/14/2015 3:00 PM TRANSPORTATION SECURITY OFFICER 06/14/2015 7:27 PM TRANSPORTATION SECURITY OFFICER Narrative Resulting Agency Comment [facility] [address] ??[place] [phone] Isidro Heredia MD LAB - HEMATOLOGY OR DERABLES [facility] INSURANCE BILL * (ABNORMAL) COMPREHENSIVE METABOLIC PANEL (06/14/2015 3:00 PM TRANSPORTATION SECURITY OFFICER) Glucose 110(H) 74 - 106 mg/dL [facility] [...] BLOOD SPECIMEN / Unknown 06/14/2015 3:00 PM TRANSPORTATION SECURITY OFFICER 06/14/2015 7:27 PM TRANSPORTATION SECURITY OFFICER Narrative Resulting Agency Comment [facility] [address] [facility] ??[facility] [phone] Isidro Heredia MD LAB - CHEMISTRY ORD ERABLES [facility] INSURANCE BILL * (ABNORMAL) CBC W AUTO DIFFERENTIAL (06/14/2015 3:00 PM TRANSPORTATION SECURITY OFFICER) WBC 7.5 4.4 - 10.7 x10E9/L [facility] [...] BLOOD SPECIMEN / Unknown 06/14/2015 3:00 PM TRANSPORTATION SECURITY OFFICER 06/14/2015 7:27 PM TRANSPORTATION SECURITY OFFICER Narrative Resulting Agency Comment [facility] [address] [facility] ??[place] [phone] Isidro Heredia MD LAB - HEMATOLOGY OR DERABLES [facility] INSURANCE BILL documented in this encounter Visit Diagnoses Diagnosis Rheumatoid arthritis of multiple sites with negative rheumatoid factor (HCC)- Primary documented in this encounter Care Teams Physical Therapist Technician Relationship Specialty Start Date End Date Toams Hyman MD [address] [place] [address] PCP - General Family Medicine 12/31/13 05/09/18 Isidro Heredia MD Rheumatology 02/09/11 documented as of this encounter
--- OUTSIDE RECORDS SUMMARY | 2024-05-03 09:05 | XMS_ITS | Encounter Summary ---
Author Organization [facility] Address [address] [facility] [place] [address] Care Team Providers Care Bridge Painter Name Role Phone Isidro Heredia MD Unavailable Tomas Hyman MD Primary Care Provider Reason for Visit * Reason Comments Rheumatoid Arthritis Headache right side of head Shoulder Pain right woul like [place] isone injection * Evaluate & Treat (Routine) - Closed Specialty Diagnoses / Procedures Referred By Lawrence t Referred To Contact Diagnoses Rheumatoid arthritis, unspecified (HCC) Procedures [place] OFFICE VISIT DURING HOURS Tomas Hyman MD [address] [place] [address] Isidro Heredia MD [address] [place] [address] Referral ID Status Reason Start Date Expiration Date Visits Re quested Visits Authorized [id number] Closed 06/08/2015 06/07/2016 6 6 Encounter Details Date Type Department Care Team (Late st Contact Info) Description 11/16/2015 2:45 PM CDT Office Visit [facility] - Rheumatology [address] [place] [address] Isidro Heredia MD [address] [place] [address] Chronic right-sided low back pain [...] 1 Tab by mouth once daily ??? Caysmsgfddk-Mwvtsmnsn-Dxl C-Mn (GLUCOSAMINE CHONDR 1500 COMPLX PO) Take [...] Contact Info) Description 06/03/2024 1:00 PM PHOTO TECHNOLOGIST Appointment [facility] - Rheumatology [address] [place], [place] [phone] 06/03/2024 2:00 PM PHOTO TECHNOLOGIST Office Visit [facility] - Rheumatology [address] [place] [address] Gloria Smith MD [address] [place] [phone] documented as of this encounter Visit [...] r documented in this encounter Care Teams Bridge Painter Relationship Specialty Start Date End Date Tomas Hyman MD [address] [facility] [address] [place] [address] PCP - General Family Medicine 12/31/13 05/09/18 Isidro Heredia MD Rheumatology 02/09/11 documented as of this encounter
--- OUTSIDE RECORDS SUMMARY | 2024-05-03 09:05 | XMS_ITS | Encounter Summary ---
Author Organization [facility] Address [address] [facility] [place] [address] Care Team Providers Care Automation Qa Lead Name Role Phone Isidro Heredia MD Unavailable [phone] Tomas Hyman MD Primary Care Provider [phone] Reason for Visit * Reason Onset Date Comments MEDICATION REFILL 11/15/2015 Encounter Details Date Type Department Care Team (Late Contact Info) Description 11/15/2015 Refill [facility] - Rheumatology [address] [place] [address] Isidro Heredia MD [address] [place] [address] MEDICATION REFILL Social History Tobacco Use [...] (Late Contact Info) Description 06/03/2024 1:00 PM FRONT OFFICE AGENT Appointment [facility] - Rheumatology [address] [place] [address] 06/03/2024 2:00 PM FRONT OFFICE AGENT Office Visit [facility] - Rheumatology [address] [place] [address] Gloria Smith MD [address] [place] [phone] documented as of this encounter Visit Diagnoses Not on filedocumented in this encounter Care Teams Automation Qa Lead Relationship Specialty Start Date End Date Tomas Hyman MD [address] [place] [address] PCP - General Family Medicine 12/31/13 05/09/18 Isidro Heredia MD Rheumatology 02/09/11 documented as of this encounter
--- OUTSIDE RECORDS SUMMARY | 2024-05-03 09:05 | XMS_ITS | Encounter Summary ---
Author Organization [facility] Address [address] [place] [address] Care Team Providers Care Activity Specialist Name Role Phone Isidro Heredia MD Unavailable [phone] Tomas Hyman MD Primary Care Provider [phone] Reason for Visit * Reason Comments Refill Request Encounter Details Date Type Department Care Team (Late Contact Info) Description 09/24/2015 Refill [facility] - Rheumatology [address] [place] [address] Isidro Heredia MD [address] [place] [address] Refill Request Social History Tobacco Use [...] (Late Contact Info) Description 06/03/2024 1:00 PM PRODUCTION SUPERINTENDENT HYDRO Appointment [facility] - Rheumatology [address] [place] [address] 06/03/2024 2:00 PM PRODUCTION SUPERINTENDENT HYDRO Office Visit [facility] Rheumatology [address] [place] [address] Gloria Smith MD [address] [place], [place] [address] [address] documented as of this encounter Visit Diagnoses Not on filedocumented in this encounter Care Teams Activity Specialist Relationship Specialty Start Date End Date Tomas Hyman MD [address] [place] [address] PCP - General Family Medicine 12/31/13 05/09/18 Isidro Heredia MD Rheumatology 02/09/11 documented as of this encounter
--- OUTSIDE RECORDS SUMMARY | 2024-05-03 09:05 | XMS_ITS | Encounter Summary ---
Author Organization [facility] Address [address] [facility] [place] [address] Care Team Providers Care Wire Strander Name Role Phone Isidro Heredia MD Unavailable [phone] Tomas Hyman MD Primary Care Provider [phone] Reason for Visit * Reason Comments Refill Request Encounter Details Date Type Department Care Team (Late Contact Info) Description 01/01/2016 Refill [facility] - Rheumatology [address] [place] [address] Ashwini Silverio, HEAD OF ENGLISH-[address] [phone] Refill Request Social History Tobacco [...] (Late Contact Info) Description 06/03/2024 1:00 PM CLAIMS AGENT RIGHT OF WAY Appointment [facility] - Rheumatology [address] [place] [address] 06/03/2024 2:00 PM CLAIMS AGENT RIGHT OF WAY Office Visit [facility] Rheumatology [address] [place] [address] Gloria Smith MD [address] [place] [address] documented as of this encounter Visit Diagnoses Not on filedocumented in this encounter Care Teams Wire Strander Relationship Specialty Start Date End Date Tomas Hyman MD [address] [place] [address] PCP - General Family Medicine 12/31/13 05/09/18 Iisdro Heredia MD Rheumatology 02/09/11 documented as of this encounter
--- OUTSIDE RECORDS SUMMARY | 2024-05-03 09:05 | XMS_ITS | Encounter Summary ---
Author Organization [facility] Address [address] [facility] [place] [address] Care Team Providers Care Wireless Sales Representative Name Role Phone Isidro Heredia MD Unavailable [phone] Tomas Hyman MD Primary Care Provider [phone] Reason for Visit * Reason Comments Refill Request Encounter Details Date Type Department Care Team (Late Contact Info) Description 06/17/2015 Refill [facility] - Rheumatology [address] [place] [address] Isidro Heredia MD [address] [place] [address] Refill Request Social History Tobacco Use [...] (Late Contact Info) Description 06/03/2024 1:00 PM MED SPA MANAGER Appointment [facility] - Rheumatology [address] [place] [address] 06/03/2024 2:00 PM MED SPA MANAGER Office Visit [facility] Rheumatology [address] [place] [address] Gloria Smith MD [address] [place], [place] [address] [address] documented as of this encounter Visit Diagnoses Not on filedocumented in this encounter Care Teams Wireless Sales Representative Relationship Specialty Start Date End Date Tomas Hyman MD [address] [place] [address] PCP - General Family Medicine 12/31/13 05/09/18 Isidro Heredia MD Rheumatology 02/09/11 documented as of this encounter
--- OUTSIDE RECORDS SUMMARY | 2024-05-03 09:05 | XMS_ITS | Encounter Summary ---
Author Organization [facility] Address [address] [facility] [place] [address] Care Team Providers Care Pound Attendant Name Role Phone Isidro Heredia MD Unavailable Tomas Hyman MD Primary Care Provider Reason for Visit * Reason Comments Rheumatoid Arthritis * Evaluate & Treat (Routine) - Closed Specialty Diagnoses / Procedures Referred By Lawrence shah Referred To Contact Diagnoses Rheumatoid arthritis with rheumatoid factor, unspecified (HCC) Procedures [place] OFFICE VISIT DURING HOURS Tomas Hyman MD [address] [place] [address] Isidro Heredia MD [address] [place] [address] Referral ID Status Reason Start Date Expiration Date Visits Re quested Visits Authorized [id number] Closed 02/24/2015 02/24/2016 6 6 Encounter Details Date Type Department Care Team (Late st Contact Info) Description 09/13/2015 4:45 PM CDT Office Visit [facility] - Rheumatology [address] [place] [address] Isidro Heredia MD [address] [place] [address] Abnormal LFTs (Primary Dx); Rheumatoid arthritis [...] 1 Tab by mouth once daily ??? Mcxkuttzvqf-Rvcuxrcsi-Ijw C-Mn (GLUCOSAMINE CHONDR 1500 COMPLX PO) Take [...] st Contact Info) Description 06/03/2024 1:00 PM TEAR DOWN MATCHER Appointment [facility] - Rheumatology [address] [place] [address] 06/03/2024 2:00 PM TEAR DOWN MATCHER Office Visit [facility] Medical [facility] - Rheumatology [address] [place] [address] Gloria Smith MD [address] [place] [phone] documented as of this encounter Visit Diagnoses Diagnosis Abnormal LFTs- Primary Other abnormal blood chemistry Rheumatoid arthritis of multiple sites with negative rheumatoid factor (HCC) Chronic pain syndrome Right lumbar radiculopathy Thoracic or lumbosacral neuritis or radiculitis, unspecified Chronic right-sided low back pain with right-sided sciatica Rheumatoid arthritis of multiple 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 factor (HCC) Rheumatoid arthritis documented in this encounter Care Teams Pound Attendant Relationship Specialty Start Date End Date Tomas Hyman MD [address] [facility] [address] [place] [address] PCP - General Family Medicine 12/31/13 05/09/18 Isidro Heredia MD Rheumatology 02/09/11 documented as of this encounter
--- OUTSIDE RECORDS SUMMARY | 2024-05-03 09:05 | XMS_ITS | Encounter Summary ---
Author Organization [facility] Address [address] [place] [address] Care Team Providers Care Pantry Worker Name Role Phone Isidro Heredia MD Unavailable Tomas Hyman MD Primary Care Provider [phone] Reason for Visit * Reason Comments Rheumatoid Arthritis Encounter Details Date Type Department Care Team (Late st Contact Info) Description 08/16/2015 5:15 PM CDT Office Visit [facility] - Rheumatology [address] [place] [address] Isidro Heredia MD [address] [place] [address] Rheumatoid arthritis of multiple sites with [...] 1 Tab by mouth once daily ??? Vvezloasxfl-Xpnbmdioc-Uqz C-Mn (GLUCOSAMINE CHONDR 1500 COMPLX PO) Take [...] TRIAMCINOLON ACETONID NOS 10 MG INJ ??? ID DRAIN/INJECT LARGE JOINT/BURSA ??? oxyCODONE-acetaminophen (PERCOCET) 5-325 [...] st Contact Info) Description 06/03/2024 1:00 PM JOY OPERATOR HELPER Appointment [facility] - Rheumatology [address] [place] [address] [phone] 06/03/2024 2:00 PM JOY OPERATOR HELPER Office Visit [facility] - Rheumatology [address] [place] [address] [phone] Gloria Smith MD [address] [place] [phone] documented as of this encounter Visit Diagnoses [...] Shoulder documented in this encounter Care Teams Pantry Worker Relationship Specialty Start Date End Date Tomas Hyman MD [address] [facility] [address] [place] [address] PCP - General Family Medicine 12/31/13 05/09/18 Isidro Heredia MD Rheumatology 02/09/11 documented as of this encounter
--- OUTSIDE RECORDS SUMMARY | 2024-05-03 09:05 | XMS_ITS | Encounter Summary ---
Author Organization [facility] Address [address] [place] [address] Care Team Providers Care Interactive Graphic Designer Name Role Phone Isidro Heredia MD Unavailable Tomas Hyman MD Primary Care Provider [phone] Reason for Visit * Reason Onset Date Comments MEDICATION REFILL 05/17/2015 Encounter Details Date Type Department Care Team (Late Contact Info) Description 05/17/2015 Refill [facility] - Rheumatology [address] [place] [address] Isidro Heredia MD [address] [place] [address] MEDICATION REFILL Social History Tobacco Use [...] (Late Contact Info) Description 06/03/2024 1:00 PM CD REACTOR OPERATOR Appointment [facility] - Rheumatology [address] [place] [address] 06/03/2024 2:00 PM CD REACTOR OPERATOR Office Visit [facility] - Rheumatology [address] [place] [address] Gloria Smith MD [address] [place] [address] documented as of this encounter Visit Diagnoses Diagnosis Rheumatoid arthritis of multiple 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 factor (HCC)- Primary Rheumatoid arthritis documented in this encounter Care Teams Interactive Graphic Designer Relationship Specialty Start Date End Date Tomas Hyman MD [address] [facility] [address] [place] [address] PCP - General Family Medicine 12/31/13 05/09/18 Isidro Heredia MD Rheumatology 02/09/11 documented as of this encounter
--- OUTSIDE RECORDS SUMMARY | 2024-05-03 09:05 | XMS_ITS | Encounter Summary ---
Author Organization [facility] Address [address] [facility] [place] [address] Care Team Providers Care Melt House Drag Operator Name Role Phone Isidro Heredia MD Unavailable [phone] Tomas Hyman MD Primary Care Provider [phone] Reason for Visit * Treatment (Routine) - Closed Specialty Diagnoses / Procedures Referred By Lawrence shah Referred To Contact Infusion Therapy Nurse Diagnoses Rheumatoid arthritis without rheumatoid factor, multiple sites (HCC) Procedures MT INJECTION TOCILIZUMAB 1 MG Isidro Heredia MD [address] [place] [address] [address] Referral ID Status Reason Start Date Expiration Date Visits Re quested Visits Authorized [id number] Closed 12/16/2015 06/07/2016 1 6 Encounter Details Date Type Department Care Team (Late st Contact Info) Description 02/23/2016 1:23 PM CDT - 02/23/2016 11:59 PM CDT Hospital Encounter [facility] - Rheumatology [address] [place] [address] Isidro Heredia MD [address] [place] [address] Discharge Disposition: Home or Self [...] Sahu RN - 02/23/2016 2:03 PM CDT [place] Rheumatology Post Infusion instructions [...] Sunday through Sunday-5 call the office at [phone] After hours or on the weekend call the exchange at [phone] If you have had lab work done [...] 1 (one) tablet by mouth at bedtime Paamifhooij-Kpyhdgrdh-W it C-Mn (GLUCOSAMINE CHONDR 1500 COMPLX PO) [...] 02/23/2016 1:58 PM CDT JOSE Chalino Deng [id number] 02/23/2016 Diagnosis: Rheumatoid arthritis without rheumatoid factor, multiple sites [M06.09]. Pt denies symptoms of infection or antibiotic use, no open wounds, or recent surgery, or plans for surgery in the next couple of weeks. Pt is aware that we use the 0-10 pain scale to assess discomfort. 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 it help desk analyst pt signs consent for treatment for [...] Contact Info) Description 06/03/2024 1:00 PM SUPERVISOR OPENING AND PICKING Appointment [facility] - Rheumatology [address] [place] [address] 06/03/2024 2:00 PM SUPERVISOR OPENING AND PICKING Office Visit [facility] - Rheumatology [address] [place] [address] Gloria Smith MD [address] [place] [phone] documented as of this encounter Visit Diagnoses [...] mg documented in this encounter Care Teams Melt House Drag Operator Relationship Specialty Start Date End Date Tomas Hyman MD [address] [facility] [address] [place] [address] PCP - General Family Medicine 12/31/13 05/09/18 Isidro Heredia MD Rheumatology 02/09/11 documented as of this encounter
--- OUTSIDE RECORDS SUMMARY | 2024-05-03 09:05 | XMS_ITS | Encounter Summary ---
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, multiple sites (HCC) Procedures MT INFLIXIMAB INJECTION MT INJECTION TOCILIZUMAB 1 MG Isidro Heredia MD [address] [place] [address] [address] Referral ID Status Reason Start Date Expiration Date Visits Re quested Visits Authorized [id number] Closed 01/07/2015 01/08/2016 1 12 Encounter Details Date Type Department Care Team (Late st Contact Info) Description 12/14/2015 2:00 PM CDT - 12/14/2015 11:59 PM CDT Hospital Encounter [facility] - Rheumatology [address] [place] [address] Isidro Heredia MD [address] [place] [address] Discharge Disposition: Home or Self [...] Foreman RN - 12/14/2015 2:43 PM CDT [place] Rheumatology Post Infusion instructions You have [...] through Sunday 9-5 call the office at [phone] After hours or on the weekend call the exchange at [phone] If you have had lab work done [...] [facility] as your provider. Carlos Foreman RN documented in this encounter Medications at Time of Discharge Medication Sig Dispensed Refills Start Date End Date atorvastatin (LIPITOR) 40 MG tablet Take 1 (one) tablet by mouth at bedtime Dqobdyqezqk-Pmxqwadiu-O it C-Mn (GLUCOSAMINE CHONDR 1500 COMPLX PO) [...] - 12/14/2015 2:42 PM CDT JOSE Deng [id number] 12/14/2015 Diagnosis: Rheumatoid arthritis without rheumatoid factor, [...] st Contact Info) Description 06/03/2024 1:00 PM FILLING HAND Appointment [facility] - Rheumatology [address] [place] [address] [phone] 06/03/2024 2:00 PM FILLING HAND Office Visit [facility] - Rheumatology [address] [place] [address] [phone] Gloria Smith MD [address] [place] [phone] documented as of this encounter Visit Diagnoses [...] mL/hr documented in this encounter Care Teams Fast Food Worker Relationship Specialty Start Date End Date Tomas Hyman MD [address] [facility] [address] [place] [address] PCP - General Family Medicine 12/31/13 05/09/18 Isidro Heredia MD Rheumatology 02/09/11 documented as of this encounter
--- OUTSIDE RECORDS SUMMARY | 2024-05-03 09:05 | XMS_ITS | Encounter Summary ---
Author Organization [facility] Address [address] [facility] [place] [address] Care Team Providers Care Center Punch Operator Name Role Phone Isidro Heredia MD Unavailable [phone] Tomas Hyman MD Primary Care Provider [phone] Reason for Visit * Reason Comments Refill Request Encounter Details Date Type Department Care Team (Late Contact Info) Description 07/01/2015 Refill [facility] - Rheumatology [address] [place] [address] Isidro Heredia MD [address] [place] [address] Refill Request Social History Tobacco Use [...] (Late Contact Info) Description 06/03/2024 1:00 PM SAFETY RELIEF VALVE TECHNICIAN Appointment [facility] - Rheumatology [address] [place] [address] 06/03/2024 2:00 PM SAFETY RELIEF VALVE TECHNICIAN Office Visit [facility] Rheumatology [address] [place] [address] Gloria Smith MD [address] [place] [address], [place] [address] documented as of this encounter Visit Diagnoses Not on filedocumented in this encounter Care Teams Center Punch Operator Relationship Specialty Start Date End Date Tomas Hyman MD [address] [place] [address] PCP - General Family Medicine 12/31/13 05/09/18 Isidro Heredia MD Rheumatology 02/09/11 documented as of this encounter
--- OUTSIDE RECORDS SUMMARY | 2024-05-03 09:05 | XMS_ITS | Encounter Summary ---
Author Organization [facility] Address [address] [facility] [place] [address] Care Team Providers Care Vigoureux Printer Name Role Phone Isidro Heredia MD Unavailable [phone] Tomas Hyman MD Primary Care Provider [phone] Reason for Visit * Reason Onset Date Comments MEDICATION REFILL 12/13/2015 Encounter Details Date Type Department Care Team (Late Contact Info) Description 12/13/2015 Refill [facility] - Rheumatology [address] [place] [address] Isidro Heredia MD [address] [place] [address] MEDICATION REFILL Social History Tobacco Use [...] (Late Contact Info) Description 06/03/2024 1:00 PM COST REDUCTION ENGINEER Appointment [facility] - Rheumatology [address] [place] [address] 06/03/2024 2:00 PM COST REDUCTION ENGINEER Office Visit [facility] - Rheumatology [address] [place] [address] Gloria Smith MD [address] [place] [address] documented as of this encounter Visit Diagnoses Diagnosis Rheumatoid arthritis of multiple 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 factor (HCC)- Primary Rheumatoid arthritis documented in this encounter Care Teams Vigoureux Printer Relationship Specialty Start Date End Date Tomas Hyman MD [address] [facility] [address] [place] [address] PCP - General Family Medicine 12/31/13 05/09/18 Isidro Heredia MD Rheumatology 02/09/11 documented as of this encounter
--- OUTSIDE RECORDS SUMMARY | 2024-05-03 09:05 | XMS_ITS | Encounter Summary ---
Author Organization [facility] Address [address] [facility] [place] [address] Care Team Providers Care Glass Washer Name Role Phone Isidro Heredia MD Unavailable [phone] Tomas Hyman MD Primary Care Provider [phone] Reason for Visit * Treatment (Routine) - Closed Specialty Diagnoses / Procedures Referred By Lawrence shah Referred To Contact Infusion Therapy Nurse Diagnoses Rheumatoid arthritis(714.0) (HCC) Rheumatoid arthritis without rheumatoid factor, multiple sites (HCC) Procedures DE INFLIXIMAB INJECTION DE INJECTION TOCILIZUMAB 1 MG Isidro Heredia MD [address] [place] [address] [address] Referral ID Status Reason Start Date Expiration Date Visits Re quested Visits Authorized [id number] Closed 01/07/2015 01/08/2016 1 12 Encounter Details Date Type Department Care Team (Late st Contact Info) Description 06/14/2015 3:00 PM IRRIGATION SPECIALIST - 06/14/2015 11:59 PM IRRIGATION SPECIALIST Hospital Encounter [facility] - Rheumatology [address] [place] [address] Isidro Heredia MD [address] [place], [...] Comments Blood Pressure 137/84 06/14/2015 3:17 PM IRRIGATION SPECIALIST Pulse 98 06/14/2015 3:17 PM IRRIGATION SPECIALIST Temperature 36.9 ??C (98.4 ??F) 06/14/2015 3:17 PM CS T Respiratory Rate 16 06/14/2015 3:17 PM IRRIGATION SPECIALIST Oxygen Saturation - - Inhaled Oxygen Concentration - - Weight - - Height - - Body Mass Index - - documented in this encounter Discharge Instructions * Discharge Instructions* Carlos Foreman RN - 06/14/2015 3:18 PM IRRIGATION SPECIALIST [place] Rheumatology Post Infusion instructions You have [...] through Sunday 9-5 call the office at [phone] After hours or on the weekend call the exchange at [phone] If you have had lab work done [...] chosen [facility] as your provider. Carlos Foreman RN GATION SPECIALIST documented in this encounter Medications at Time of Discharge Medication Sig Dispensed Refills Start Date End Date Xstkayvbnlb-Nvgarzyug-O it C-Mn (GLUCOSAMINE CHONDR 1500 COMPLX PO) [...] - 06/14/2015 3:32 PM CST JOSE Deng [id number] 06/14/2015 Diagnosis: Rheumatoid arthritis without rheumatoid factor, [...] Yes Next treatment? 4wk Carlos Foreman RN GATION SPECIALIST documented in this encounter Plan of Treatment Upcoming Encounters Date Type Department Care Team (Late st Contact Info) Description 06/03/2024 1:00 PM IRRIGATION SPECIALIST Appointment [facility] - Rheumatology [address] [place] [address] 06/03/2024 2:00 PM IRRIGATION SPECIALIST Office Visit [facility] - Rheumatology [address] [place] [address] Gloria Smith MD [address] [place] [phone] documented as of this encounter Visit [...] 24hrs RT $ Given 06/14/2015 3:25 PM IRRIGATION SPECIALIST 800 mg 140 mL/hr documented in this encounter Care Teams Glass Washer Relationship Specialty Start Date End Date Tomas Hyman MD [address] [facility] [address] [place] [address] PCP - General Family Medicine 12/31/13 05/09/18 Isidro Heredia MD Rheumatology 02/09/11 documented as of this encounter
--- OUTSIDE RECORDS SUMMARY | 2024-05-03 09:05 | XMS_ITS | Encounter Summary ---
Author Organization [facility] Address [address] [facility] [place] [address] Care Team Providers Care Acetylene Operator Name Role Phone Isidro Heredia MD Unavailable [phone] Tomas Hyman MD Primary Care Provider [phone] Encounter Details Date Type Department Care Team (Late st Contact Info) Description 07/19/2015 Orders Only [facility] Medical [facility] - Rheumatology [address] [place] [address] [phone] Isidro Heredia MD [address] [place] [address] Rheumatoid arthritis of multiple sites with [...] Contact Info) Description 06/03/2024 1:00 PM MEDICAL ADVISOR Appointment [facility] - Rheumatology [address] [place] [address] [phone] 06/03/2024 2:00 PM MEDICAL ADVISOR Office Visit [facility] - Rheumatology [address] [place] [address] Gloria Smith MD [address] [place] [phone] documented as of this encounter Procedures [...] [facility] INSURANCE BILL Comment:LDL/HDL RATIO BLOOD ([facility]) 1.8 <5.0 Cholesterol/HDL Ratio 4.2 <4.5 [facility] INSURANCE BILL Blood specimen (specimen) BLOOD SPECIMEN / Unknown 07/19/2015 4:30 PM CDT 07/19/2015 7:11 PM CDT Narrative Resulting Agency Comment [facility] [address] [facility] ??Ziyad [place] [id number] Isidro Heredia MD LAB - CHEMISTRY ORD ERABLES [facility] INSURANCE BILL documented in this encounter Visit Diagnoses Diagnosis Rheumatoid arthritis of multiple sites with negative rheumatoid factor (HCC)- Primary documented in this encounter Care Teams Acetylene Operator Relationship Specialty Start Date End Date Tomas Hyman MD [address] [place] [address] PCP - General Family Medicine 12/31/13 05/09/18 Isidro Heredia MD Rheumatology 02/09/11 documented as of this encounter
--- OUTSIDE RECORDS SUMMARY | 2024-05-03 09:05 | XMS_ITS | Encounter Summary ---
Author Organization [facility] Address [address] [facility] [place] [address] Care Team Providers Care Road Freight Brake Coupler Name Role Phone Isidro Heredia MD Unavailable [phone] Tomas Hyman MD Primary Care Provider [phone] Reason for Visit * Reason Onset Date Comments MEDICATION REFILL 07/19/2015 Encounter Details Date Type Department Care Team (Late Contact Info) Description 07/19/2015 Refill [facility] - Rheumatology [address] [place] [address] Isidro Heredia MD [address] [place] [address] MEDICATION REFILL Social History Tobacco Use [...] (Late Contact Info) Description 06/03/2024 1:00 PM LUMBER STACKER OPERATOR Appointment [facility] - Rheumatology [address] [place] [address] 06/03/2024 2:00 PM LUMBER STACKER OPERATOR Office Visit [facility] - Rheumatology [address] [place] [address] Gloria Smith MD [address] [place] [address] documented as of this encounter Visit Diagnoses Diagnosis Rheumatoid arthritis of multiple 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 factor (HCC)- Primary Rheumatoid arthritis documented in this encounter Care Teams Road Freight Brake Coupler Relationship Specialty Start Date End Date Tomas Hyman MD [address] [facility] [address] [place] [address] PCP - General Family Medicine 12/31/13 05/09/18 Isidro Heredia MD Rheumatology 02/09/11 documented as of this encounter
--- OUTSIDE RECORDS SUMMARY | 2024-05-03 09:05 | XMS_ITS | Encounter Summary ---
Author Organization [facility] Address [address] [facility] [place] [address] Care Team Providers Care President & Ceo [employer] Name Role Phone Hitesh Solis MD Unavailable [phone] Tomas Hyman MD Primary Care Provider Reason for Visit * Reason Comments Rheumatoid Arthritis Encounter Details Date Type Department Care Team (Late st Contact Info) Description 06/14/2015 3:30 PM MARBLE MASON Office Visit [facility] - Rheumatology [address] [place] [address] Hitesh Solis MD [address] [place] [address] Rheumatoid arthritis of multiple sites with [...] Comments Blood Pressure 137/84 06/14/2015 3:34 PM MARBLE MASON Pulse 98 06/14/2015 3:34 PM MARBLE MASON Temperature - - Respiratory Rate - - [...] PO) Take by mouth once daily. ??? Guyaagfehhb-Nubexeeuu-Qmh C-Mn (GLUCOSAMINE CHONDR 1500 COMPLX PO) Take [...] on: 06/14/2015 04:16 PM Modules accepted: Orders LE MASON documented in this encounter Plan of Treatment Upcoming Encounters Date Type Department Care Team (Late st Contact Info) Description 06/03/2024 1:00 PM MARBLE MASON Appointment [facility] - Rheumatology [address] [place] [address] 06/03/2024 2:00 PM MARBLE MASON Office Visit [facility] - Rheumatology [address] [place] [address] Gloria Smith MD [address] [place] [phone] documented as of this encounter Visit Diagnoses Diagnosis Rheumatoid arthritis of multiple sites with negative rheumatoid factor (HCC)- Primary Chronic pain syndrome Right lumbar radiculopathy Thoracic or lumbosacral neuritis or radiculitis, unspecified Rheumatoid arthritis of multiple 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 factor (HCC) Rheumatoid arthritis documented in this encounter Care Teams President & Ceo [employer] Relationship Specialty Start Date End Date Tomas Hyman MD [address] [facility] [address] [place] [address] PCP - General Family Medicine 12/31/13 05/09/18 Hitesh Solis MD Rheumatology 02/09/11 documented as of this encounter
--- OUTSIDE RECORDS SUMMARY | 2024-05-03 09:05 | XMS_ITS | Encounter Summary ---
Author Organization [facility] Address [address] [place] [address] Care Team Providers Care Horse Farm Manager Name Role Phone Isidro Heredia MD Unavailable Tomas Hyman MD Primary Care Provider [phone] Reason for Visit * Reason Comments Pain Back chronic * Evaluate & Treat (Routine) - Closed Specialty Diagnoses / Procedures Referred By Lawrence shah Referred To Contact Diagnoses Rheumatoid arthritis, unspecified (HCC) Procedures [place] OFFICE VISIT DURING HOURS Tomas Hyman MD [address] [place] [address] Isidro Heredia MD [address] [place] [address] Referral ID Status Reason Start Date Expiration Date Visits Re quested Visits Authorized [id number] Closed 06/08/2015 06/07/2016 6 6 Encounter Details Date Type Department Care Team (Late st Contact Info) Description 01/11/2016 3:15 PM CDT Office Visit [facility] - Rheumatology [address] [place] [address] Isidro Heredia MD [address] [place] [address] Rheumatoid arthritis of multiple sites with [...] 1 Tab by mouth once daily ??? Axxsyqprrgd-Ahcljfwqj-Mwg C-Mn (GLUCOSAMINE CHONDR 1500 COMPLX PO) Take [...] Contact Info) Description 06/03/2024 1:00 PM VISUAL MERCHANDISER Appointment [facility] - Rheumatology [address] [place] [address] 06/03/2024 2:00 PM VISUAL MERCHANDISER Office Visit [facility] - Rheumatology [address] [place] [address] Gloria Smith MD [address] [place] [phone] documented as of this encounter Visit Diagnoses Diagnosis Rheumatoid arthritis of multiple sites with negative rheumatoid factor (HCC)- Primary Abnormal LFTs Other abnormal blood chemistry Chronic right-sided low back pain with right-sided sciatica Chronic pain syndrome Rheumatoid arthritis of multiple 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 factor (HCC) Rheumatoid arthritis documented in this encounter Care Teams Horse Farm Manager Relationship Specialty Start Date End Date Tomas Hyman MD [address] [facility] [address] [place] [address] PCP - General Family Medicine 12/31/13 05/09/18 Isidro Heredia MD Rheumatology 02/09/11 documented as of this encounter
--- OUTSIDE RECORDS SUMMARY | 2024-05-03 09:05 | XMS_ITS | Encounter Summary ---
Author Organization [facility] Address [address] [facility] [address] Care Team Providers Care Automobile Service Station Attendant Name Role Phone Isidro Heredia MD Unavailable [phone] Tomas Hyman MD Primary Care Provider [phone] Reason for Visit * Treatment (Routine) - Closed Specialty Diagnoses / Procedures Referred By Lawrence shah Referred To Contact Infusion Therapy Nurse Diagnoses Rheumatoid arthritis(714.0) (HCC) Rheumatoid arthritis without rheumatoid factor, multiple sites (HCC) Procedures MT INFLIXIMAB INJECTION MT INJECTION TOCILIZUMAB 1 MG Isidro Hreedia MD [address] [place] [address] [address] Referral ID Status Reason Start Date Expiration Date Visits Re quested Visits Authorized [id number] Closed 01/07/2015 01/08/2016 1 12 Encounter Details Date Type Department Care Team (Late st Contact Info) Description 07/19/2015 4:20 PM CDT - 07/19/2015 11:59 PM CDT Hospital Encounter [facility] Medical [facility] - Rheumatology [address] [place] [address] Isidro Heredia MD [address] [place] [address] Discharge Disposition: Home or Self [...] Sahu RN - 07/19/2015 4:51 PM CDT [place] Rheumatology Post Infusion instructions You [...] through Sunday 9-5 call the office at [phone] After hours or on the weekend call the exchange at [phone] If you have had lab work done [...] Sig Dispensed Refills Start Date End Date Ubbvrvtajnj-Iuumlfwhn-Y it C-Mn (GLUCOSAMINE CHONDR 1500 COMPLX PO) [...] - 07/19/2015 4:53 PM CDT JOSE Deng [id number] 07/19/2015 Diagnosis: Rheumatoid arthritis without rheumatoid factor, [...] st Contact Info) Description 06/03/2024 1:00 PM GARNISHER Appointment [facility] - Rheumatology [address] [place] [address] [phone] 06/03/2024 2:00 PM GARNISHER Office Visit [facility] - Rheumatology [address] [place] [address] [phone] Gloria Smith MD [address] [place] [phone] documented as of this encounter Visit Diagnoses [...] mL/hr documented in this encounter Care Teams Automobile Service Station Attendant Relationship Specialty Start Date End Date Tomas Hyman MD [address] [facility] [address] [place] [address] PCP - General Family Medicine 12/31/13 05/09/18 Isidro Heredia MD Rheumatology 02/09/11 documented as of this encounter
--- OUTSIDE RECORDS SUMMARY | 2024-05-03 09:05 | XMS_ITS | Encounter Summary ---
Author Organization [facility] Address [address] [place] [address] Care Team Providers Care Personal Driver Name Role Phone Isidro Heredia MD Unavailable [phone] Tomas Hyman MD Primary Care Provider [phone] Encounter Details Date Type Department Care Team (Late st Contact Info) Description 08/16/2015 Orders Only [facility] Medical [facility] - Rheumatology [address] [place] [address] [phone] Isidro Heredia MD [address] [place] [address] Rheumatoid arthritis of multiple sites with [...] st Contact Info) Description 06/03/2024 1:00 PM GRANTS DIRECTOR Appointment [facility] - Rheumatology [address] [place] [address] [phone] 06/03/2024 2:00 PM GRANTS DIRECTOR Office Visit [facility] - Rheumatology [address] [place] [address] Gloria Smith MD [address] [place] [phone] documented as of this encounter Procedures [...] 7:43 PM CDT Narrative Resulting Agency Comment [facility] [address] [facility] ??Ziyad PENNY [phone] Isidro Heredia MD LAB - HEMATOLOGY OR [...] 7:43 PM CDT Narrative Resulting Agency Comment [facility] [address] [facility] ??Ziyad PENNY [phone] Isidro Heredia MD LAB - CHEMISTRY ORD [...] 7:43 PM CDT Narrative Resulting Agency Comment [facility] [address] [facility] ??[facility] [phone] Isidro Heredia MD LAB - HEMATOLOGY OR DERABLES [facility] INSURANCE BILL documented in this encounter Visit Diagnoses Diagnosis Rheumatoid arthritis of multiple sites with negative rheumatoid factor (HCC)- Primary documented in this encounter Care Teams Personal Driver Relationship Specialty Start Date End Date Tomas Hyman MD [address] [place] [address] PCP - General Family Medicine 12/31/13 05/09/18 Isidro Heredia MD Rheumatology 02/09/11 documented as of this encounter
--- OUTSIDE RECORDS SUMMARY | 2024-05-03 09:06 | XMS_ITS | Encounter Summary ---
Author Organization [facility] Address [address] [place] [address] Care Team Providers Care Transcription Typist Name Role Phone Isidro Heredia MD Unavailable Tomas Hyman MD Primary Care Provider [phone] Reason for Visit * Reason Comments Rheumatoid Arthritis * Evaluate & Treat (Routine) - Closed Specialty Diagnoses / Procedures Referred By Lawrence shah Referred To Contact Diagnoses Rheumatoid arthritis(714.0) (HCC) Procedures [place] OFFICE VISIT DURING HOURS Tomas Hyman MD [address] [place] [address] Isidro Heredia MD [address] [place] [address] Referral ID Status Reason Start Date Expiration Date Visits Re quested Visits Authorized [id number] Closed 08/12/2014 02/08/2015 3 3 Encounter Details Date Type Department Care Team (Late st Contact Info) Description 09/09/2014 3:00 PM CDT Office Visit [facility] Medical [facility] - Rheumatology [address] [place] [address] Isidro Heredia MD [address] [place] [address] Rheumatoid arthritis(714.0) (HCC) (Primary Dx); Chronic [...] PO) Take by mouth once daily. ??? Npizigcwyoj-Xaillphii-Ddk C-Mn (GLUCOSAMINE CHONDR 1500 COMPLX PO) Take [...] Contact Info) Description 06/03/2024 1:00 PM CAR SALES ASSOCIATE Appointment [facility] - Rheumatology [address] [place] [address] 06/03/2024 2:00 PM CAR SALES ASSOCIATE Office Visit [facility] Medical [facility] - Rheumatology [address] [place] [address] [phone] Gloria Smith MD [address] [place] [phone] documented as of this encounter Visit Diagnoses Diagnosis Rheumatoid arthritis(714.0) ([facility])- Primary Rheumatoid arthritis Chronic pain syndrome Lumbar radiculopathy Thoracic or lumbosacral neuritis or radiculitis, unspecified documented in this encounter Care Teams Transcription Typist Relationship Specialty Start Date End Date Tomas yHman MD [address] [facility] [address] [place] [address] PCP - General Family Medicine 12/31/13 05/09/18 Isidro Heredia MD Rheumatology 02/09/11 documented as of this encounter
--- OUTSIDE RECORDS SUMMARY | 2024-05-03 09:06 | XMS_ITS | Encounter Summary ---
Author Organization [facility] Address [address] [place] [place] [address] Care Team Providers Care Chemical Milling Processor Name Role Phone Isidro Heredia MD Unavailable [phone] Tomas Hyman MD Primary Care Provider [phone] Reason for Visit * Treatment (Routine) - Closed Specialty Diagnoses / Procedures Referred By Lawrence shah Referred To Contact Infusion Therapy Nurse Diagnoses Rheumatoid arthritis(714.0) ([facility]) Procedures CT INJECTION TOCILIZUMAB 1 MG Isidro Heredia MD [address] [place] [address] [address] Referral ID Status Reason Start Date Expiration Date Visits Re quested Visits Authorized [id number] Closed 09/29/2014 04/29/2015 1 6 Encounter Details Date Type Department Care Team (Late st Contact Info) Description 01/07/2015 1:55 PM CDT - 01/07/2015 11:59 PM CDT Hospital Encounter [facility] Medical [facility] - Rheumatology [address] [place] [address] Isidro Heredia MD [address] [facility] [place] [address] Discharge Disposition: Home or Self [...] Foreman RN - 01/07/2015 2:30 PM CDT [place] Rheumatology Post Infusion instructions [...] Sunday through 01-02 call the office at [phone] After hours or on the weekend call the exchange at [phone] If you have had lab work done [...] chosen [facility] as your provider. Carlos Foreman RN documented in this encounter Medications at Time of Discharge Medication Sig Dispensed Refills Start Date End Date Uidebmswmvp-Bnuuxqxux-I it C-Mn (GLUCOSAMINE CHONDR 1500 COMPLX PO) [...] 01/07/2015 2:26 PM CDT JOSE Chalino Deng [id number] 01/07/2015 Diagnosis: Rheumatoid arthritis(714.0) [714.0]. Patient questionnaire [...] Contact Info) Description 06/03/2024 1:00 PM SPECIALTY FINISHING UTILITY PERSON Appointment [facility] - Rheumatology [address] [place] [address] 06/03/2024 2:00 PM SPECIALTY FINISHING UTILITY PERSON Office Visit [facility] - Rheumatology [address] [place] [address] Gloria Smith MD [address] [place] [phone] documented as of this encounter Visit [...] documented in this encounter Care Teams Chemical Milling Processor Relationship Specialty Start Date End Date Tomas Hyman MD [address] [facility] [address] [place] [address] PCP - General Family Medicine 12/31/13 05/09/18 Isidro Heredia MD Rheumatology 02/09/11 documented as of this encounter
--- OUTSIDE RECORDS SUMMARY | 2024-05-03 09:06 | XMS_ITS | Encounter Summary ---
Author Organization [facility] Address [address] [facility] [place] [address] Care Team Providers Care Puttying And Calking Supervisor Name Role Phone Isidro Heredia MD Unavailable [phone] Tomas Hyman MD Primary Care Provider [phone] Reason for Visit * Treatment (Routine) - Closed Specialty Diagnoses / Procedures Referred By Lawrence shah Referred To Contact Infusion Therapy Nurse Diagnoses Rheumatoid arthritis(714.0) ([facility]) Procedures [place] INJECTION TOCILIZUMAB 1 MG Isidro Heredia MD [address] [place] [address] [address] Referral ID Status Reason Start Date Expiration Date Visits Re quested Visits Authorized [id number] Closed 09/29/2014 04/29/2015 1 6 Encounter Details Date Type Department Care Team (Late st Contact Info) Description 11/05/2014 2:34 PM CDT - 11/05/2014 11:59 PM CDT Hospital Encounter [facility] Medical [facility] - Rheumatology [address] [place] [address] Isidro Heredia MD [address] [facility] [address] Discharge Disposition: Home or Self [...] Foreman RN - 11/05/2014 3:58 PM CDT [place] Rheumatology Post Infusion instructions You have received [...] Sunday through 01-02 call the office at [phone] After hours or on the weekend call the exchange at [phone] If you have had lab work done [...] you and are glad you have chosen [facility] as your provider. Carlos Foreman RN documented in this encounter Medications at Time of Discharge Medication Sig Dispensed Refills Start Date End Date Ctterohdjga-Gfcmipccb-R it C-Mn (GLUCOSAMINE CHONDR 1500 COMPLX PO) [...] 11/05/2014 3:56 PM CDT JOSE Chalino Deng [id number] 11/05/2014 Diagnosis: Rheumatoid arthritis(714.0) [714.0]. Patient questionnaire [...] st Contact Info) Description 06/03/2024 1:00 PM AFTER SCHOOL PROGRAM TEACHER Appointment [facility] - Rheumatology [address] [place] [address] [phone] 06/03/2024 2:00 PM AFTER SCHOOL PROGRAM TEACHER Office Visit [facility] - Rheumatology [address] [place] [address] Gloria Smith MD [address] [place] [phone] documented as of this encounter Visit Diagnoses [...] r documented in this encounter Care Teams Puttying And Calking Supervisor Relationship Specialty Start Date End Date Tomas Hyman MD [address] [place] [address] PCP - General Family Medicine 12/31/13 05/09/18 Isidro Heredia MD Rheumatology 02/09/11 documented as of this encounter
--- OUTSIDE RECORDS SUMMARY | 2024-05-03 09:06 | XMS_ITS | Encounter Summary ---
Author Organization [facility] Address [address] [facility] [place] [address] Care Team Providers Care Commissioner Of Officials Name Role Phone Isidro Heredia MD Unavailable [phone] Tomas Hyman MD Primary Care Provider [phone] Reason for Visit * Reason Comments Rheumatoid Arthritis * Evaluate & Treat (Routine) - Closed Specialty Diagnoses / Procedures Referred By Lawrence t Referred To Contact Diagnoses Rheumatoid arthritis(714.0) ([facility]) Procedures [place] OFFICE/[place]PT VISIT,EST,JULITO I Tomas Hyman MD [address] [place] [address] Isidro Heredia MD [address] [place] [address] Referral ID Status Reason Start Date Expiration Date Visits Re quested Visits Authorized [id number] Closed 09/09/2014 03/08/2015 5 5 Encounter Details Date Type Department Care Team (Late st Contact Info) Description 03/04/2015 2:45 PM INSPECTOR AND UNLOADER Office Visit [facility] Medical [facility] - Rheumatology [address] [place] [address] Isidro Heredia MD [address] [place] [address] Rheumatoid arthritis(714.0) (HCC) (Primary Dx); Chronic [...] Comments Blood Pressure 133/88 03/04/2015 2:05 PM INSPECTOR AND UNLOADER Pulse 103 03/04/2015 2:05 PM INSPECTOR AND UNLOADER Temperature - - Respiratory Rate - - Oxygen Saturation - - Inhaled Oxygen Concentration - - Weight 116.1 kg (256 lb) 03/04/2015 2:05 PM INSPECTOR AND UNLOADER Height - - Body Mass Index 36.73 02/04/2015 2:14 PM CDT documented in this encounter Progress Notes * Yamileth Rodríguez MA - 03/08/2015 12:08 PM CSTQuick Note: Message sent via my chart regarding lab results ECTOR AND UNLOADER * Isidro Heredia MD - 03/08/2015 7:26 AM CSTQuick Note: lfts inc sgot and sgpt hold mtx Chol high 262 Trig high 461 meron ECTOR AND UNLOADER * Isidro Heredia MD - 03/04/2015 3:48 [...] PO) Take by mouth once daily. ??? Fauyxfjjjfb-Bvlztzvdf-Ecx C-Mn (GLUCOSAMINE CHONDR 1500 COMPLX PO) Take [...] Follow up in office in 4 weeks ECTOR AND UNLOADER documented in this encounter Plan of Treatment Upcoming Encounters Date Type Department Care Team (Late st Contact Info) Description 06/03/2024 1:00 PM INSPECTOR AND UNLOADER Appointment [facility] - Rheumatology [address] [place] [address] 06/03/2024 2:00 PM INSPECTOR AND UNLOADER Office Visit [facility] - Rheumatology [address] [place] [address] Gloria Smith MD [address] [place] [address] [phone] documented as of this encounter Procedures Procedure Name Priority Date/Time Associated Diagnosis Comments LIPID PROFILE W TCHOL/HDL Routine 03/04/2015 2:00 PM INSPECTOR AND UNLOADER Rheumatoid arthritis(714.0) ([facility]) ERYTHROCYTE SEDIMENTATION RATE Routine 03/04/2015 2:00 PM INSPECTOR AND UNLOADER Rheumatoid arthritis(714.0) ([facility]) CBC W AUTO DIFFERENTIAL Routine 03/04/2015 2:00 PM INSPECTOR AND UNLOADER Rheumatoid arthritis(714.0) ([facility]) COMPREHENSIVE METABOLIC PANEL Routine 03/04/2015 2:00 PM INSPECTOR AND UNLOADER Rheumatoid arthritis(714.0) ([facility]) documented in this encounter Results * (ABNORMAL) LIPID PROFILE W TCHOL/HDL (PO REF LAB) (03/04/2015 2:00 PM INSPECTOR AND UNLOADER) Cholesterol 262(H) <200 mg/dL [facility] INSURANCE BILL [...] ordering a Direct LDL. LDL/HDL RATIO BLOOD ([facility]) ?<5.0 Unable to calculate LDL due to elevated Triglycerides, please consider ordering a Direct LDL. Cholesterol/HDL Ratio 5.3(H) <4.5 [facility] INSURANCE BILL Blood specimen (specimen) BLOOD SPECIMEN / Unknown 03/04/2015 2:00 PM INSPECTOR AND UNLOADER 03/04/2015 6:11 PM INSPECTOR AND UNLOADER Narrative Resulting Agency Comment [facility] [address] ??Ziyad PENNY [phone] Isidro Heredia MD LAB - CHEMISTRY ORD ERABLES [facility] INSURANCE BILL * SED RATE WESTERGREN (03/04/2015 2:00 PM INSPECTOR AND UNLOADER) Erythrocyte Sedimentation Rate Westergren 7 0 - 20 mm/hr [facility] INSURANCE BILL Blood specimen (specimen) BLOOD SPECIMEN / Unknown 03/04/2015 2:00 PM INSPECTOR AND UNLOADER 03/04/2015 6:11 PM INSPECTOR AND UNLOADER Narrative Resulting Agency Comment [facility] [address] ??Ziyad PENNY [phone] Isidro Heredia MD LAB - HEMATOLOGY OR DERABLES [facility] INSURANCE BILL * (ABNORMAL) COMPREHENSIVE METABOLIC PANEL (03/04/2015 2:00 PM INSPECTOR AND UNLOADER) Glucose 106 74 - 106 mg/dL [facility] [...] BLOOD SPECIMEN / Unknown 03/04/2015 2:00 PM INSPECTOR AND UNLOADER 03/04/2015 6:11 PM INSPECTOR AND UNLOADER Narrative Resulting Agency Comment [facility] [address] [facility] ??[place]iy[place] [phone] Isidro Heredia MD LAB - CHEMISTRY ORD ERABLES [facility] INSURANCE BILL * CBC W AUTO DIFFERENTIAL (03/04/2015 2:00 PM INSPECTOR AND UNLOADER) WBC 9.2 4.4 - 10.7 x10E9/L [facility] [...] BLOOD SPECIMEN / Unknown 03/04/2015 2:00 PM INSPECTOR AND UNLOADER 03/04/2015 6:11 PM INSPECTOR AND UNLOADER Narrative Resulting Agency Comment [facility] [address] [facility] ??[facility] [id number] Isidro Heredia MD LAB - HEMATOLOGY OR DERABLES [facility] INSURANCE BILL documented in this encounter Visit Diagnoses Diagnosis Rheumatoid arthritis(714.0) (HCC)- Primary Rheumatoid arthritis Chronic pain syndrome Right lumbar radiculopathy Thoracic or lumbosacral neuritis or radiculitis, unspecified documented in this encounter Care Teams Commissioner Of Officials Relationship Specialty Start Date End Date Tomas Hyman MD [address] [facility] [address] [place] [address] PCP - General Family Medicine 12/31/13 05/09/18 Isidro Heredia MD Rheumatology 02/09/11 documented as of this encounter
--- OUTSIDE RECORDS SUMMARY | 2024-05-03 09:06 | XMS_ITS | Encounter Summary ---
Author Organization [facility] Address [address] [place] [address] Care Team Providers Care Mechanical Technologist Name Role Phone Isidro Heredia MD Unavailable [phone] Tomas Hyman MD Primary Care Provider [phone] Reason for Visit * Treatment (Routine) - Closed Specialty Diagnoses / Procedures Referred By Lawrence shah Referred To Contact Infusion Therapy Nurse Diagnoses Rheumatoid arthritis(714.0) (HCC) Rheumatoid arthritis without rheumatoid factor, multiple sites (HCC) Procedures [place] INFLIXIMAB INJECTION [place] INJECTION TOCILIZUMAB 1 MG Isidro Heredia MD [address] [place] [address] [phone] Referral ID Status Reason Start Date Expiration Date Visits Re quested Visits Authorized [id number] Closed 01/07/2015 01/08/2016 1 12 Encounter Details Date Type Department Care Team (Late st Contact Info) Description 02/04/2015 2:00 PM CDT - 02/04/2015 11:59 PM CDT Hospital Encounter [facility] Medical [facility] - Rheumatology [address] [place] [address] [phone] Isidro Heredia MD [address] [place] [address] Discharge Disposition: Home or Self [...] Sahu RN - 02/04/2015 2:37 PM CDT [place] Rheumatology Post Infusion instructions [...] through Sunday 9-5 call the office at [phone] After hours or on the weekend call the exchange at [phone] If you have had lab work done [...] Sig Dispensed Refills Start Date End Date Nudgenkdbkk-Jyovuuapx-J it C-Mn (GLUCOSAMINE CHONDR 1500 COMPLX PO) [...] - 02/04/2015 2:38 PM CDT JOSE Deng [id number] 02/04/2015 Diagnosis: There are no admission diagnoses documented for this encounter.. Pt denies symptoms of infection or antibiotic use, no open wounds, or recent surgery, or plans for surgery in the next couple of weeks. Pt is aware that we use the 0-10 pain scale to assess discomfort. 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 help desk manager pt signs consent for treatment [...] st Contact Info) Description 06/03/2024 1:00 PM DIABETES MANAGER Appointment [facility] - Rheumatology [address] [place] [address] 06/03/2024 2:00 PM DIABETES MANAGER Office Visit [facility] - Rheumatology [address] [place] [address] Gloria Smith MD [address] [place] [phone] documented as of this encounter Visit Diagnoses [...] mL/hr documented in this encounter Care Teams Mechanical Technologist Relationship Specialty Start Date End Date Tomas Hyman MD [address] [facility] [address] [place] [address] PCP - General Family Medicine 12/31/13 05/09/18 Isidro Heredia MD Rheumatology 02/09/11 documented as of this encounter
--- OUTSIDE RECORDS SUMMARY | 2024-05-03 09:06 | XMS_ITS | Encounter Summary ---
Author Organization [facility] Address [address] [place] [address] Care Team Providers Care Service Station Operator Name Role Phone Isidro Heredia MD Unavailable [phone] Tomas Hyman MD Primary Care Provider [phone] Reason for Visit * Reason Comments Pain Back lower back; aching Pain Knee bilat knee pain;achi ng;swelling * Evaluate & Treat (Routine) - Closed Specialty Diagnoses / Procedures Referred By Lawrence t Referred To Contact Diagnoses Rheumatoid arthritis(714.0) (HCC) Procedures [place] OFFICE VISIT DURING HOURS Tomas Hyman MD [address] [place] [address] Isidro Heredia MD [address] [place] [address] Referral ID Status Reason Start Date Expiration Date Visits Re quested Visits Authorized [id number] Closed 08/12/2014 02/08/2015 3 3 Encounter Details Date Type Department Care Team (Late st Contact Info) Description 10/07/2014 2:15 PM CDT Office Visit [facility] [employer] [facility] - Rheumatology [address] [place] [address] Isidro Heredia MD [address] [place] [address] Rheumatoid arthritis(714.0) (HCC) (Primary Dx); [...] PO) Take by mouth once daily. ??? Qmpyvgrddrj-Wghgdcxrt-Nsx C-Mn (GLUCOSAMINE CHONDR 1500 COMPLX PO) Take [...] st Contact Info) Description 06/03/2024 1:00 PM RECEPTIONIST SCHEDULER Appointment [facility] - Rheumatology [address] [place] [address] [phone] 06/03/2024 2:00 PM RECEPTIONIST SCHEDULER Office Visit [facility] - Rheumatology [address] [place] [address] Gloria Smith MD [address] [place] [phone] documented as of this encounter Visit Diagnoses Diagnosis Rheumatoid arthritis(714.0) ([facility])- Primary Rheumatoid arthritis Chronic pain syndrome documented in this encounter Care Teams Service Station Operator Relationship Specialty Start Date End Date Tomas Hyman MD [address] [facility] [address] [place] [address] PCP - General Family Medicine 12/31/13 05/09/18 Isidro Heredia MD Rheumatology 02/09/11 documented as of this encounter
--- OUTSIDE RECORDS SUMMARY | 2024-05-03 09:06 | XMS_ITS | Encounter Summary ---
Author Organization [facility] Address [address] [place] [address] Care Team Providers Care Reprographics Technician Name Role Phone Isidro Heredia MD Unavailable [phone] Tomas Hyman MD Primary Care Provider [phone] Encounter Details Date Type Department Care Team (Latest Contact Info) Description 12/29/2014 9:05 AM CDT - 12/29/2014 11:59 PM CDT Hospital Encounter [facility] [address] [place] [address] [place] [address] [place] [address] Discharge Disposition: Home or Self Care Social [...] Mckinney RN - 12/29/2014 9:11 AM CDT [facility] Procedure Center Pain Discharge Instructions [...] headache, or any other problems, please call [phone] or after hours callDr. Mirza at [phone] and tell them your physician's name. The exchange will alert the physician distribution engineer. If sedation is given: No sedation given. For Your Next Visit: No additional instructions. Other Instructions: May remove band-aid in 12 Hours. Return in 1 week KIMBERLEY#3. RN Signature: Date: documented in this encounter Medications at Time of Discharge Medication Sig Dispensed Refills Start Date End Date Kwlooviidbr-Jmxxmwijb-Y it C-Mn (GLUCOSAMINE CHONDR 1500 COMPLX PO) [...] Coumidin, Plavix or other blood thinners. Responsible water tanker driver is not needed due to the [...] st Contact Info) Description 06/03/2024 1:00 PM LOCATOR SPECIALIST Appointment [facility] - Rheumatology [address] [place] [address] 06/03/2024 2:00 PM LOCATOR SPECIALIST Office Visit [facility] - Rheumatology [address] [place] [address] Gloria Smith MD [address] [place] [phone] documented as of this encounter Procedures [...] Coumidin, Plavix or other blood thinners. ??Responsible water tanker driver is not needed due to the [...] Back documented in this encounter Care Teams Reprographics Technician Relationship Specialty Start Date End Date Tomas Hyman MD [address] [facility] [address] [place] [address] PCP - General Family Medicine 12/31/13 05/09/18 Isidro Heredia MD Rheumatology 02/09/11 documented as of this encounter
--- OUTSIDE RECORDS SUMMARY | 2024-05-03 09:06 | XMS_ITS | Encounter Summary ---
Author Organization [facility] Address [address] [facility] [place] [address] Care Team Providers Care Retail Planning Manager Name Role Phone Isidro Heredia MD Unavailable [phone] Tomas Hyman MD Primary Care Provider [phone] Reason for Visit * Reason Comments Refill Request Encounter Details Date Type Department Care Team (Late Contact Info) Description 11/25/2014 Refill [facility] - Rheumatology [address] [place] [address] Isidro Heredia MD [address] [place] [address] Refill Request Social History Tobacco Use [...] (Late Contact Info) Description 06/03/2024 1:00 PM CONTACT WORKER LITHOGRAPHY Appointment [facility] - Rheumatology [address] [place] [address] 06/03/2024 2:00 PM CONTACT WORKER LITHOGRAPHY Office Visit [facility] Rheumatology [address] [place] [address] Gloria Smith MD [address] [place], [place] [address] [address] documented as of this encounter Visit Diagnoses Not on filedocumented in this encounter Care Teams Retail Planning Manager Relationship Specialty Start Date End Date Tomas Hyman MD [address] [place] [address] PCP - General Family Medicine 12/31/13 05/09/18 Isidro Heredia MD Rheumatology 02/09/11 documented as of this encounter
--- OUTSIDE RECORDS SUMMARY | 2024-05-03 09:06 | XMS_ITS | Encounter Summary ---
Author Organization [facility] Address [address] [place] [address] Care Team Providers Care Regional Education Coordinator Name Role Phone Isidro Heredia MD Unavailable [phone] Tomas Hyman MD Primary Care Provider Reason for Visit * Reason Comments Follow-up RA; lower joint extr emity pain Pain Back lower back pain * Evaluate & Treat (Routine) - Closed Specialty Diagnoses / Procedures Referred By Contac t Referred To Contact Diagnoses Rheumatoid arthritis(714.0) (HCC) Procedures [place] OFFICE/OUTPT VISIT,JULITO RODRIGUEZ Jason E, MD [address] [place] [address] sIidro Heredia MD [address] [place] [address] Referral ID Status Reason Start Date Expiration Date Visits Re quested Visits Authorized [id number] Closed 09/09/2014 03/08/2015 5 5 Encounter Details Date Type Department Care Team (Late st Contact Info) Description 11/05/2014 2:30 PM CDT Office Visit [facility] [employer] [facility] - Rheumatology [address] [place] [address] Isidro Heredia MD [address] [place] [address] Rheumatoid arthritis(714.0) (HCC) (Primary Dx); [...] PO) Take by mouth once daily. ??? Repankabaxj-Pvzescpkk-Fxh C-Mn (GLUCOSAMINE CHONDR 1500 COMPLX PO) Take [...] st Contact Info) Description 06/03/2024 1:00 PM TURKEY EGG GATHERER Appointment [facility] - Rheumatology [address] [place] [address] 06/03/2024 2:00 PM TURKEY EGG GATHERER Office Visit [facility] - Rheumatology [address] [place] [address] Gloria Smith MD [address] [place] [phone] documented as of this encounter Visit Diagnoses Diagnosis Rheumatoid arthritis(714.0) (HCC)- Primary Rheumatoid arthritis Chronic pain syndrome documented in this encounter Care Teams Regional Education Coordinator Relationship Specialty Start Date End Date Tomas Hyman MD [address] [facility] [address] [place] [address] PCP - General Family Medicine 12/31/13 05/09/18 Isidro Heredia MD Rheumatology 02/09/11 documented as of this encounter
--- OUTSIDE RECORDS SUMMARY | 2024-05-03 09:06 | XMS_ITS | Encounter Summary ---
Author Organization [facility] Address [address] [place] [address] Care Team Providers Care Front End Developer Javascript Html Css Name Role Phone Isidro Heredia MD Unavailable [phone] Tomas Hyman MD Primary Care Provider [phone] Reason for Visit * Treatment (Routine) - Closed Specialty Diagnoses / Procedures Referred By Lawrence shah Referred To Contact Infusion Therapy Nurse Diagnoses Rheumatoid arthritis(714.0) ([facility]) Procedures MD INJECTION TOCILIZUMAB 1 MG Isidro Heredia MD [address] [place] [address] [address] Referral ID Status Reason Start Date Expiration Date Visits Re quested Visits Authorized [id number] Closed 09/29/2014 04/29/2015 1 6 Encounter Details Date Type Department Care Team (Late st Contact Info) Description 10/07/2014 1:54 PM CDT - 10/07/2014 11:59 PM CDT Hospital Encounter [facility] Medical [facility] - Rheumatology [address] [place] [address] Isidro Heredia MD [address] [facility] [address] Discharge Disposition: Home or Self [...] Foreman RN - 10/07/2014 2:20 PM CDT [place] Rheumatology Post Infusion instructions [...] Sunday through 01-02 call the office at [phone] After hours or on the weekend call the exchange at [phone] If you have had lab work done [...] [facility] as your provider. Carlos Foreman RN documented in this encounter Medications at Time of Discharge Medication Sig Dispensed Refills Start Date End Date Ymjatuedebp-Lmbcwkyqb-Dq t C-Mn (GLUCOSAMINE CHONDR 1500 COMPLX PO) [...] (PERCOCET) 5-325 MG tabletIndications:Rheuma toid arthritis(714.0) ([facility]) Take 1 Tab by mouth every 6 [...] 10/07/2014 2:29 PM CDT JOSE Chalino Deng [id number] 10/07/2014 Diagnosis: Rheumatoid arthritis(714.0) [714.0]. Patient questionnaire [...] st Contact Info) Description 06/03/2024 1:00 PM LINE ASSEMBLY UTILITY WORKER Appointment [facility] - Rheumatology [address] [place] [address] [phone] 06/03/2024 2:00 PM LINE ASSEMBLY UTILITY WORKER Office Visit [facility] - Rheumatology [address] [place] [address] Gloria Smith MD [address] [place] [phone] documented as of this encounter Visit Diagnoses Diagnosis Rheumatoid arthritis(714.0) ([facility]) Rheumatoid arthritis documented in this encounter Administered [...] r documented in this encounter Care Teams Front End Developer Javascript Html Css Relationship Specialty Start Date End Date Tomas Hyman MD [address] [facility] [address] [place] [address] PCP - General Family Medicine 12/31/13 05/09/18 Isidro Heredia MD Rheumatology 02/09/11 documented as of this encounter
--- OUTSIDE RECORDS SUMMARY | 2024-05-03 09:06 | XMS_ITS | Encounter Summary ---
Author Organization [facility] Address [address] [facility] [place] [address] Care Team Providers Care Military Pay Technician Name Role Phone Hitesh Solis MD Unavailable Tomas Hyman MD Primary Care Provider Reason for Visit * Reason Comments Rheumatoid Arthritis * Evaluate & Treat (Routine) - Closed Specialty Diagnoses / Procedures Referred By Lawrence t Referred To Contact Diagnoses Rheumatoid arthritis with rheumatoid factor, unspecified (HCC) Procedures [place] OFFICE VISIT DURING HOURS Tomas Hyman MD [address] [place] [address] Hitesh Solis MD [address] [place] [address] Referral ID Status Reason Start Date Expiration Date Visits Re quested Visits Authorized [id number] Closed 02/24/2015 02/24/2016 6 6 Encounter Details Date Type Department Care Team (Late st Contact Info) Description 04/07/2015 3:30 PM THERAPEUTIC MASSAGE TECHNICIAN Office Visit [facility] - Rheumatology [address] [place] [address] Hitesh Solis MD [address] [place] [address] Rheumatoid arthritis of multiple sites without [...] Comments Blood Pressure 120/88 04/07/2015 3:41 PM THERAPEUTIC MASSAGE TECHNICIAN Pulse 108 04/07/2015 3:41 PM THERAPEUTIC MASSAGE TECHNICIAN Temperature - - Respiratory Rate - - Oxygen Saturation - - Inhaled Oxygen Concentration - - Weight 117 kg (258 lb) 04/07/2015 3:41 PM THERAPEUTIC MASSAGE TECHNICIAN Height - - Body Mass Index 37.02 04/07/2015 3:10 PM THERAPEUTIC MASSAGE TECHNICIAN documented in this encounter Progress Notes * Yamileth Rodríguez MA - 04/12/2015 11:22 AM CSTQuick Note: Patient was given results through my chart message APEUTIC MASSAGE TECHNICIAN * Hitesh Solis MD - 04/11/2015 10:26 PM CSTQuick Note: Wbc sl inc [address] bs 125 sl inc lfts [place] Resume mtx meron APEUTIC MASSAGE TECHNICIAN * Hitesh Solis MD - 04/07/2015 4:16 [...] PO) Take by mouth once daily. ??? Ljzqkvisdcf-Mnvbjolbh-Hbl C-Mn (GLUCOSAMINE CHONDR 1500 COMPLX PO) Take [...] C-REACTIVE PROTEIN ??? SED RATE WESTERGREN ??? TX DRAIN/INJECT LARGE JOINT/BURSA ??? oxyCODONE-acetaminophen (PERCOCET) 5-325 [...] Follow up in office in 4 weeks APEUTIC MASSAGE TECHNICIAN documented in this encounter Miscellaneous Notes * Addendum Note - Hitesh Solis MD - 04/13/2015 6:19 PM CSTAddended by: HITESH SOLIS on: 04/13/2015 06:19 PM Modules accepted: Orders APEUTIC MASSAGE TECHNICIAN documented in this encounter Plan of Treatment Upcoming Encounters Date Type Department Care Team (Late st Contact Info) Description 06/03/2024 1:00 PM THERAPEUTIC MASSAGE TECHNICIAN Appointment [facility] - Rheumatology [address] [place] [address] 06/03/2024 2:00 PM THERAPEUTIC MASSAGE TECHNICIAN Office Visit [facility] - Rheumatology [address] [place] [address] Gloria Smith MD [address] [place] [phone] documented as of this encounter Procedures Procedure Name Priority Date/Time Associated Diagnosis Comments C-REACTIVE PROTEIN Routine 04/07/2015 4: 30 PM THERAPEUTIC MASSAGE TECHNICIAN Rheumatoid arthritis of multiple 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 factor (HCC) ERYTHROCYTE SEDIMENTATION RATE Routine 04/07/2015 4:30 PM THERAPEUTIC MASSAGE TECHNICIAN Rheumatoid arthritis of multiple 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 factor (HCC) CBC W AUTO DIFFERENTIAL Routine 04/07/2015 4:30 PM THERAPEUTIC MASSAGE TECHNICIAN Rheumatoid arthritis of multiple 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 factor (HCC) COMPREHENSIVE METABOLIC PANEL Routine 04/07/2015 4:30 PM THERAPEUTIC MASSAGE TECHNICIAN Rheumatoid arthritis of multiple 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 factor (HCC) documented in this encounter Results * SED RATE WESTERGREN (04/07/2015 4:30 PM THERAPEUTIC MASSAGE TECHNICIAN) Erythrocyte Sedimentation Rate Westergren 6 0 - 20 mm/hr [facility] INSURANCE BILL Blood specimen (specimen) BLOOD SPECIMEN / Unknown 04/07/2015 4:30 PM THERAPEUTIC MASSAGE TECHNICIAN 04/07/2015 7:24 PM THERAPEUTIC MASSAGE TECHNICIAN Narrative Resulting Agency Comment [facility] [address] [address] ??Ziyad [place]ENNY [id number] Hitesh Solis MD LAB - HEMATOLOGY OR DERABLES [facility] INSURANCE BILL * C-REACTIVE PROTEIN (04/07/2015 4:30 PM THERAPEUTIC MASSAGE TECHNICIAN) C-Reactive Protein <0.29 <0.30 mg/dL [facility] INSURANCE BILL Blood specimen (specimen) BLOOD SPECIMEN / Unknown 04/07/2015 4:30 PM THERAPEUTIC MASSAGE TECHNICIAN 04/07/2015 7:24 PM THERAPEUTIC MASSAGE TECHNICIAN Narrative Resulting Agency Comment [facility] [address] ??Ziyad [place]NY [id number] Hitesh Solis MD LAB - CHEMISTRY ORD ERABLES [facility] INSURANCE BILL * (ABNORMAL) COMPREHENSIVE METABOLIC PANEL (04/07/2015 4:30 PM THERAPEUTIC MASSAGE TECHNICIAN) Glucose 125(H) 74 - 106 mg/dL [facility] [...] BLOOD SPECIMEN / Unknown 04/07/2015 4:30 PM THERAPEUTIC MASSAGE TECHNICIAN 04/07/2015 7:24 PM THERAPEUTIC MASSAGE TECHNICIAN Narrative Resulting Agency Comment [facility] [address] [facility] ??Ziyad PENNY [phone] Hitesh Solis MD LAB - CHEMISTRY ORD ERABLES [facility] INSURANCE BILL * (ABNORMAL) CBC W AUTO DIFFERENTIAL (04/07/2015 4:30 PM THERAPEUTIC MASSAGE TECHNICIAN) WBC 11.6(H) 4.4 - 10.7 x10E9/L [facility] [...] BLOOD SPECIMEN / Unknown 04/07/2015 4:30 PM THERAPEUTIC MASSAGE TECHNICIAN 04/07/2015 7:24 PM THERAPEUTIC MASSAGE TECHNICIAN Narrative Resulting Agency Comment [facility] [address] [facility] ??[facility] [phone] Hitesh Solis MD LAB - HEMATOLOGY OR [...] r documented in this encounter Care Teams Military Pay Technician Relationship Specialty Start Date End Date Tomas Hyman MD [address] [facility] [address] [place] [address] PCP - General Family Medicine 12/31/13 05/09/18 Hitesh Solis MD Rheumatology 02/09/11 documented as of this encounter
--- OUTSIDE RECORDS SUMMARY | 2024-05-03 09:06 | XMS_ITS | Encounter Summary ---
Author Organization [facility] Address [address] [facility] [place] [address] Care Team Providers Care Shoe Shanker Name Role Phone Isidro Heredia MD Unavailable [phone] Tomas Hyman MD Primary Care Provider [phone] Reason for Visit * Reason Comments Refill Request Encounter Details Date Type Department Care Team (Late Contact Info) Description 04/26/2015 Refill [facility] - Rheumatology [address] [place] [address] Isidro Heredia MD [address] [place] [address] Refill Request Social History Tobacco Use [...] (Late Contact Info) Description 06/03/2024 1:00 PM INTERNAL AUDIT CONSULTANT Appointment [facility] - Rheumatology [address] [place] [address] 06/03/2024 2:00 PM INTERNAL AUDIT CONSULTANT Office Visit [facility] Rheumatology [address] [place] [address] Gloria Smith MD [address] [place] [address], [place] [address] documented as of this encounter Visit Diagnoses Not on filedocumented in this encounter Care Teams Shoe Shanker Relationship Specialty Start Date End Date Tomas Hyman MD [address] [place] [address] PCP - General Family Medicine 12/31/13 05/09/18 Isidro Heredia MD Rheumatology 02/09/11 documented as of this encounter
--- OUTSIDE RECORDS SUMMARY | 2024-05-03 09:06 | XMS_ITS | Encounter Summary ---
Author Organization [facility] Address [address] [place] [address] Care Team Providers Care Saw Filer Name Role Phone Isidro Heredia MD Unavailable [phone] Tomas Hyman MD Primary Care Provider [phone] Reason for Visit * Reason Onset Date Comments Appointment 04/20/2015 Encounter Details Date Type Department Care Team (Late st Contact Info) Description 04/20/2015 Telephone [facility] Medical [facility] - Rheumatology [address] [place] [address] Isidro Heredia MD [address] [place] [address] Appointment Social History Tobacco Use Types [...] - 05/21/2015 7:47 AM CST Infusion scheduled. RETE WORKER * Telephone Encounter - Erika Julien - 05/07/2015 1:12 PM CST Pt is calling back for appt RETE WORKER * Telephone Encounter - Patricia Bonds - 04/20/2015 2:28 PM CST Pt calling to make an appointment for an infusion. The pt states that he would like to see Dr. Heredia at the same time. Please call. RETE WORKER documented in this encounter Plan of Treatment Upcoming Encounters Date Type Department Care Team (Late st Contact Info) Description 06/03/2024 1:00 PM CONCRETE WORKER Appointment [facility] - Rheumatology [address] [place] [address] 06/03/2024 2:00 PM CONCRETE WORKER Office Visit [facility] - Rheumatology [address] [place] [address] Gloria Smith MD [address] [place] [phone] documented as of this encounter Visit Diagnoses Not on filedocumented in this encounter Care Teams Saw Filer Relationship Specialty Start Date End Date Tomas Hyman MD [address] [place] [address] PCP - General Family Medicine 12/31/13 05/09/18 Isidro Heredia MD Rheumatology 02/09/11 documented as of this encounter
--- OUTSIDE RECORDS SUMMARY | 2024-05-03 09:06 | XMS_ITS | Encounter Summary ---
Author Organization [facility] Address [address] [facility] [place] [address] Care Team Providers Care Carpentry Specialist Name Role Phone Isidro Heredia MD Unavailable [phone] Tomas Hyman MD Primary Care Provider [phone] Reason for Visit * Treatment (Routine) - Closed Specialty Diagnoses / Procedures Referred By Lawrence shah Referred To Contact [place] [address] [address] [facility] Pain Care [address] [place] [address] Referral ID Status Reason Start Date Expiration Date Visits Re quested Visits Authorized [id number] Closed 12/21/2014 06/19/2015 1 6 Encounter Details Date Type Department Care Team (Latest Contact Info) Description 12/29/2014 9:03 AM CDT - 12/29/2014 9:04 AM CDT Hospital Encounter [facility] Health Pain Care [address] [place] [address] [place] [address] [address] Discharge Disposition: Home or Self [...] Sig Dispensed Refills Start Date End Date Lvvyitzersy-Eclrqseow-U it C-Mn (GLUCOSAMINE CHONDR 1500 COMPLX PO) [...] Contact Info) Description 06/03/2024 1:00 PM SECURITY ADVISOR Appointment [facility] - Rheumatology [address] [place] [address] [phone] 06/03/2024 2:00 PM SECURITY ADVISOR Office Visit [facility] - Rheumatology [address] [place] [address] [phone] Gloria Smith MD [address] [place] [phone] documented as of this encounter Visit Diagnoses Not on filedocumented in this encounter Care Teams Carpentry Specialist Relationship Specialty Start Date End Date Tomas Hyman MD [address] [facility] [address] [place] [address] PCP - General Family Medicine 12/31/13 05/09/18 Isidro Heredia MD Rheumatology 02/09/11 documented as of this encounter
--- OUTSIDE RECORDS SUMMARY | 2024-05-03 09:06 | XMS_ITS | Encounter Summary ---
Author Organization [facility] Address [address] [facility] [place] [address] Care Team Providers Care Paper Hanger Name Role Phone Isidro Heredia MD Unavailable [phone] Tomas Hyman MD Primary Care Provider [phone] Encounter Details Date Type Department Care Team (Latest Contact Info) Description 12/21/2014 9:20 AM CDT - 12/21/2014 11:59 PM CDT Hospital Encounter [facility] Pain Care [address] [place] [address] [place] [address] [place] [address] Discharge Disposition: Home or Self Care Social [...] Littlejohn RN - 12/21/2014 9:31 AM CDT [facility] Procedure Center Pain Discharge Instructions Selective [...] headache, or any other problems, please call [phone] or after hours callDr. Mirza at [phone] and tell them your physician's name. The exchange will alert the physician floorperson. If sedation is given: No sedation given. For Your Next Visit: No additional instructions. Other Instructions: May remove band-aid in 12 Hours. Return in one week for KIMBERLEY #2. Patient Signature: Date: RN Signature: Date: documented in this encounter Medications at Time of Discharge Medication Sig Dispensed Refills Start Date End Date Xrqgclvhsrx-Gvsnhlvgz-D it C-Mn (GLUCOSAMINE CHONDR 1500 COMPLX PO) [...] Coumidin, Plavix or other blood thinners. Responsible pedicab driver is not needed due to the [...] Lum/cad, Flouro Follow Up: 1 week Alejandro iMrza MD documented in this encounter Plan of Treatment Upcoming Encounters Date Type Department Care Team (Late st Contact Info) Description 06/03/2024 1:00 PM MANAGER SERVICING Appointment [facility] - Rheumatology [address] [place] [address] 06/03/2024 2:00 PM MANAGER SERVICING Office Visit [facility] - Rheumatology [address] [place] [address] Gloria Smith MD [address] [place] [phone] documented as of this encounter Procedures [...] Coumidin, Plavix or other blood thinners. ??Responsible pedicab driver is not needed due to the [...] Back documented in this encounter Care Teams Paper Hanger Relationship Specialty Start Date End Date Tomas Hyman MD [address] [facility] [address] [place] [address] PCP - General Family Medicine 12/31/13 05/09/18 Isidro Heredia MD Rheumatology 02/09/11 documented as of this encounter
--- OUTSIDE RECORDS SUMMARY | 2024-05-03 09:06 | XMS_ITS | Encounter Summary ---
Author Organization [facility] Address [address] [facility] [place] [address] Care Team Providers Care Monorail Charger Operator Name Role Phone Isidro Heredia MD Unavailable [phone] Tomas Hyman MD Primary Care Provider [phone] Encounter Details Date Type Department Care Team (Late st Contact Info) Description 11/05/2014 Orders Only [facility] Medical [facility] - Rheumatology [address] [place] [address] [phone] Isidro Heredia MD [address] [place] [address] Rheumatoid arthritis(714.0) ([facility]) Social History Tobacco Use Types Packs/Day Years [...] st Contact Info) Description 06/03/2024 1:00 PM SYSTEM SUPPORT ADMINISTRATOR Appointment [facility] - Rheumatology [address] [place] [address] 06/03/2024 2:00 PM SYSTEM SUPPORT ADMINISTRATOR Office Visit [facility] - Rheumatology [address] [place] [address] Gloria Smith MD [address] [place] [phone] documented as of this encounter Procedures Procedure Name Priority Date/Time Associated Diagnosis Comments ERYTHROCYTE SEDIMENTATION RATE Routine 11/05/2014 12:00 AM CDT Rheumatoid arthritis(714.0) ([facility]) CBC W AUTO DIFFERENTIAL Routine 11/05/2014 12:00 AM CDT Rheumatoid arthritis(714.0) ([facility]) COMPREHENSIVE METABOLIC PANEL Routine 11/05/2014 12:00 AM CDT Rheumatoid arthritis(714.0) ([facility]) documented in this encounter Results * SED RATE WESTERGREN (11/05/2014 12:00 AM CDT) Erythrocyte Sedimentation Rate Westergren 5 0 - 30 mm/hr [facility] INSURANCE BILL Blood specimen (specimen) BLOOD SPECIMEN / Unknown 11/05/2014 11/05/2014 10:20 PM CDT Narrative Resulting Agency Comment [facility] [address] ??[facility] [phone] Isidro Heredia MD LAB - HEMATOLOGY OR [...] PM CDT Narrative Resulting Agency Comment [facility] [address] ??[facility] [phone] Isidro Heredia MD LAB - CHEMISTRY ORD [...] PM CDT Narrative Resulting Agency Comment [facility] [address] ??[facility] [phone] Isidro Heredia MD LAB - HEMATOLOGY OR DERABLES [facility] INSURANCE BILL documented in this encounter Visit Diagnoses Diagnosis Rheumatoid arthritis(714.0) ([facility])- Primary Rheumatoid arthritis documented in this encounter Care Teams Monorail Charger Operator Relationship Specialty Start Date End Date Tomas Hyman MD [address] [facility] [address] [place] [address] PCP - General Family Medicine 12/31/13 05/09/18 Isidro Heredia MD Rheumatology 02/09/11 documented as of this encounter
--- OUTSIDE RECORDS SUMMARY | 2024-05-03 09:06 | XMS_ITS | Encounter Summary ---
Author Organization [facility] Address [address] [facility] [place] [address] Care Team Providers Care Post Anesthesia Room Nurse Name Role Phone Isidro Heredia MD Unavailable [phone] Tomas Hyman MD Primary Care Provider [phone] Reason for Visit * Reason Comments Follow-up RA * Evaluate & Treat (Routine) - Closed Specialty Diagnoses / Procedures Referred By Lawrence t Referred To Contact Diagnoses Rheumatoid arthritis(714.0) (HCC) Procedures HI OFFICE/OUTPT VISIT,EST,JULITO I Tomas Hyman MD [address] [place] [address] Isidro Heredia MD [address] [place] [address] Referral ID Status Reason Start Date Expiration Date Visits Re quested Visits Authorized [id number] Closed 09/09/2014 03/08/2015 5 5 Encounter Details Date Type Department Care Team (Late st Contact Info) Description 12/03/2014 2:00 PM CDT Office Visit [facility] Medical [facility] - Rheumatology [address] [place] [address] Isidro Heredia MD [address] [place] [address] Rheumatoid arthritis(714.0) (HCC) (Primary Dx); Chronic [...] PO) Take by mouth once daily. ??? Impibyrhrkz-Ulpqpoqzq-Kng C-Mn (GLUCOSAMINE CHONDR 1500 COMPLX PO) Take [...] st Contact Info) Description 06/03/2024 1:00 PM EPIC MANAGER Appointment [facility] - Rheumatology [address] [place] [address] 06/03/2024 2:00 PM EPIC MANAGER Office Visit [facility] - Rheumatology [address] [place] [address] Gloria Smith MD [address] [place] [phone] documented as of this encounter Visit Diagnoses Diagnosis Rheumatoid arthritis(714.0) ([facility])- Primary Rheumatoid arthritis Chronic pain syndrome documented in this encounter Care Teams Post Anesthesia Room Nurse Relationship Specialty Start Date End Date Tomas Hyman MD [address] [place] [address] PCP - General Family Medicine 12/31/13 05/09/18 Isidro Heredia MD Rheumatology 02/09/11 documented as of this encounter
--- OUTSIDE RECORDS SUMMARY | 2024-05-03 09:06 | XMS_ITS | Encounter Summary ---
Author Organization [facility] Health Address [address] [place] [address] Care Team Providers Care Decaler Name Role Phone Isidro Heredia MD Unavailable [phone] Tomas Hyman MD Primary Care Provider [phone] Reason for Visit * Treatment (Routine) - Closed Specialty Diagnoses / Procedures Referred By Lawrence shah Referred To Contact [place] [address] [address] [facility] Pain Care [address] [place] [address] Referral ID Status Reason Start Date Expiration Date Visits Re quested Visits Authorized [id number] Closed 12/21/2014 06/19/2015 1 6 Encounter Details Date Type Department Care Team (Latest Contact Info) Description 04/06/2015 1:30 PM SOLAR DESIGNER - 04/06/2015 1:42 PM [facility] Hospital Encounter [facility] Pain Care [address] [place] [address] [place] [address] [address] Discharge Disposition: Home or Self [...] Beatris Gallegos RN - 04/06/2015 1:56 PM SOLAR DESIGNER [facility] De[facility] Procedure Center Pain Discharge Instructions [...] headache, or any other problems, please call [phone] or after hours callDr. Mirza at [phone] and tell them your physician's name. The exchange will alert the physician maintenance controller. If sedation is given: No sedation given. For Your Next Visit: No additional instructions. Other Instructions: May remove band-aid in 12 Hours. Return next week follow up in 2 weeks. R DESIGNER documented in this encounter Medications at Time of Discharge Medication Sig Dispensed Refills Start Date End Date Ysjxcerhnly-Gveybwcxz-L it C-Mn (GLUCOSAMINE CHONDR 1500 COMPLX PO) [...] Coumidin, Plavix or other blood thinners. Responsible crude oil driver is not needed due to the [...] Follow Up: 1 week Alejandro Mirza MD R DESIGNER documented in this encounter Plan of Treatment Upcoming Encounters Date Type Department Care Team (Late st Contact Info) Description 06/03/2024 1:00 PM SOLAR DESIGNER Appointment [facility] - Rheumatology [address] [place] [address] [phone] 06/03/2024 2:00 PM SOLAR DESIGNER Office Visit [facility] - Rheumatology [address] [place] [address] [phone] Gloria Smith MD [address] [place] [phone] documented as of this encounter Visit Diagnoses Not on filedocumented in this encounter Administered Medications Inactive Administered Medications - up to 3 most recent administrations Medication Order MAR Action Action Date Dose Rate Site methylPREDNISolone acetate (DEPO-MEDROL) injection 80 mg 80 mg, Intramuscular, INTRA-PROCEDURE ONCE, 1 dose, On Sun04/06/15 at 1356 $ Admin. by Other Provider 04/06/2015 2:03 PM SOLAR DESIGNER 80 mg Back documented in this encounter Care Teams Decaler Relationship Specialty Start Date End Date Tomas Hyman MD [address] [facility] [address] [place] [address] PCP - General Family Medicine 12/31/13 05/09/18 Isidro Heredia MD Rheumatology 02/09/11 documented as of this encounter
--- OUTSIDE RECORDS SUMMARY | 2024-05-03 09:06 | XMS_ITS | Encounter Summary ---
Author Organization [facility] Address [address] [facility] [place] [address] Care Team Providers Care Group Burner Machine Name Role Phone Hitesh Solis MD Unavailable [phone] Tomas Hyman MD Primary Care Provider [phone] Reason for Visit * Reason Comments Rheumatoid Arthritis Shoulder Pain right, would liek co rtisone injection * Evaluate & Treat (Routine) - Closed Specialty Diagnoses / Procedures Referred By Contac t Referred To Contact Diagnoses Rheumatoid arthritis(714.0) (HCC) Procedures ME OFFICE/OUTPT VISIT,EST,Tomas Gupta MD [address] [place] [address] Hitesh Solis MD [address] [place] [address] Referral ID Status Reason Start Date Expiration Date Visits Re quested Visits Authorized [id number] Closed 09/09/2014 03/08/2015 5 5 Encounter Details Date Type Department Care Team (Late st Contact Info) Description 01/07/2015 3:00 PM CDT Office Visit [facility] - Rheumatology [address] [place] [address] Hitesh Solis MD [address] [facility] [place] [address] Rheumatoid arthritis(714.0) (HCC) (Primary Dx); [...] PO) Take by mouth once daily. ??? Tvmzcdaxzzd-Qomtsabae-Qet C-Mn (GLUCOSAMINE CHONDR 1500 COMPLX PO) Take [...] METABOLIC PANEL ??? SED RATE WESTERGREN ??? ME DRAIN/INJECT LARGE JOINT/BURSA ??? oxyCODONE-acetaminophen (PERCOCET) 5-325 [...] st Contact Info) Description 06/03/2024 1:00 PM PROGRAM ARCHITECT Appointment [facility] - Rheumatology [address] [place] [address] [phone] 06/03/2024 2:00 PM PROGRAM ARCHITECT Office Visit [facility] - Rheumatology [address] [place] [address] Gloria Smith MD [address] [place] [phone] documented as of this encounter Procedures Procedure Name Priority Date/Time Associated Diagnosis Comments ERYTHROCYTE SEDIMENTATION RATE Routine 01/07/2015 3:40 PM CDT Rheumatoid arthritis(714.0) ([facility]) CBC W AUTO DIFFERENTIAL Routine 01/07/2015 3:40 PM CDT Rheumatoid arthritis(714.0) ([facility]) COMPREHENSIVE METABOLIC PANEL Routine 01/07/2015 3:40 PM CDT Rheumatoid arthritis(714.0) ([facility]) documented in this encounter Results * SED RATE WESTERGREN (01/07/2015 3:40 PM CDT) Erythrocyte Sedimentation Rate Westergren 4 0 - 20 mm/hr [facility] INSURANCE BILL Blood specimen (specimen) BLOOD SPECIMEN / Unknown 01/07/2015 3:40 PM CDT 01/07/2015 6:19 PM CDT Narrative Resulting Agency Comment [facility] [address] [facility] [place] [id number] Hitesh Solis MD LAB - HEMATOLOGY OR [...] 6:19 PM CDT Narrative Resulting Agency Comment [facility] [address] [facility] ??[facility] [id number] Hitesh Solis MD LAB - CHEMISTRY ORD [...] 6:19 PM CDT Narrative Resulting Agency Comment [facility] [address] [facility] ??[place] [id number] Hitesh Solis MD LAB - HEMATOLOGY OR DERABLES [facility] INSURANCE BILL documented in this encounter Visit Diagnoses Diagnosis Rheumatoid arthritis(714.0) ([facility])- Primary Rheumatoid arthritis Chronic pain syndrome Right lumbar radiculopathy Thoracic or lumbosacral neuritis or radiculitis, unspecified Triceps tendonitis Other enthesopathy of elbow region documented in this encounter Administered Medications Administered Medications Medication Order MAR Action Action Date Dose Rate Site Triamcinolone Acetonide Intraarticular Given 01/07/2015 2 mL See comments documented in this encounter Care Teams Group Burner Machine Relationship Specialty Start Date End Date Tomas Hyman MD [address] [facility] [address] [place] [address] PCP - General Family Medicine 12/31/13 05/09/18 Hitesh Solis MD Rheumatology 02/09/11 documented as of this encounter
--- OUTSIDE RECORDS SUMMARY | 2024-05-03 09:06 | XMS_ITS | Encounter Summary ---
Author Organization [facility] Address [address] [facility] [place] [address] Care Team Providers Care Last Trimmer Name Role Phone Isidro Heredia MD Unavailable [phone] Tomas Hyman MD Primary Care Provider [phone] Reason for Visit * Reason Comments Refill Request Encounter Details Date Type Department Care Team (Late Contact Info) Description 09/12/2014 Refill [facility] - Rheumatology [address] [place] [address] Isidro Heredia MD [address] [place] [address] Refill Request Social History Tobacco Use [...] (Late Contact Info) Description 06/03/2024 1:00 PM AIRCRAFT DELIVERY CHECKER Appointment [facility] - Rheumatology [address] [place] [address] 06/03/2024 2:00 PM AIRCRAFT DELIVERY CHECKER Office Visit [facility] Rheumatology [address] [place] [address] Gloria Smith MD [address] [place] [address] [address] documented as of this encounter Visit Diagnoses Not on filedocumented in this encounter Care Teams Last Trimmer Relationship Specialty Start Date End Date Tomas Hyman MD [address] [place] [address] PCP - General Family Medicine 12/31/13 05/09/18 Isidro Heredia MD Rheumatology 02/09/11 documented as of this encounter
--- OUTSIDE RECORDS SUMMARY | 2024-05-03 09:06 | XMS_ITS | Encounter Summary ---
Author Organization [facility] Health Address [address] [facility] [place] [address] Care Team Providers Care Vice President Biostatistics Name Role Phone Isidro Heredia MD Unavailable [phone] Tomas Hyman MD Primary Care Provider [phone] Reason for Visit * Treatment (Routine) - Closed Specialty Diagnoses / Procedures Referred By Lawrence shah Referred To Contact [place] [address] [address] [facility] Pain Care [address] [place] [address] Referral ID Status Reason Start Date Expiration Date Visits Re quested Visits Authorized [id number] Closed 12/21/2014 06/19/2015 1 6 Encounter Details Date Type Department Care Team (Latest Contact Info) Description 12/21/2014 9:19 AM CDT Hospital Encounter [facility] Health Pain Care [address] [place] [address] [place] [address] [address] Discharge Disposition: Home or Self [...] Sig Dispensed Refills Start Date End Date Ywgrqvhzdxh-Ponldpmzo-N it C-Mn (GLUCOSAMINE CHONDR 1500 COMPLX PO) [...] st Contact Info) Description 06/03/2024 1:00 PM INDUSTRIAL ECOLOGY TECHNICIAN Appointment [facility] - Rheumatology [address] [place] [address] [phone] 06/03/2024 2:00 PM INDUSTRIAL ECOLOGY TECHNICIAN Office Visit [facility] - Rheumatology [address] [place] [address] [phone] Gloria Smith MD [address] [place] [phone] documented as of this encounter Visit Diagnoses Not on filedocumented in this encounter Care Teams Vice President Biostatistics Relationship Specialty Start Date End Date Tomas Hyman MD [address] [place] [address] [place] [address] PCP - General Family Medicine 12/31/13 05/09/18 Isidro Heredia MD Rheumatology 02/09/11 documented as of this encounter
--- OUTSIDE RECORDS SUMMARY | 2024-05-03 09:06 | XMS_ITS | Encounter Summary ---
Author Organization [facility] Address [address] [facility] [place] [address] Care Team Providers Care Welding Specialist Name Role Phone Isidro Heredia MD Unavailable [phone] Tomas Hyman MD Primary Care Provider [phone] Reason for Visit * Treatment (Routine) - Closed Specialty Diagnoses / Procedures Referred By Lawrence shah Referred To Contact Infusion Therapy Nurse Diagnoses Rheumatoid arthritis(714.0) ([facility]) Procedures MT INJECTION TOCILIZUMAB 1 MG Isidro Heredia MD [address] [place] [address] [phone] Referral ID Status Reason Start Date Expiration Date Visits Re quested Visits Authorized [id number] Closed 09/29/2014 04/29/2015 1 6 Encounter Details Date Type Department Care Team (Late st Contact Info) Description 12/03/2014 1:21 PM CDT - 12/03/2014 11:59 PM CDT Hospital Encounter [facility] Medical [facility] - Rheumatology [address] [place] [address] Isidro Heredia MD [address] [place] [address] Discharge Disposition: Home or Self [...] Foreman RN - 12/03/2014 2:03 PM CDT [place] Rheumatology Post Infusion instructions [...] through Sunday 9-5 call the office at [phone] After hours or on the weekend call the exchange at [phone] If you have had lab work done [...] Sig Dispensed Refills Start Date End Date Hqrzjmxvioa-Nqhnpfkeo-V it C-Mn (GLUCOSAMINE CHONDR 1500 COMPLX PO) [...] 12/03/2014 1:59 PM CDT JOSE Chalino Deng [id number] 12/03/2014 Diagnosis: Rheumatoid arthritis(714.0) [714.0]. Patient questionnaire [...] st Contact Info) Description 06/03/2024 1:00 PM OVERLOCK COLLAR SETTER Appointment [facility] - Rheumatology [address] [place] [address] [phone] 06/03/2024 2:00 PM OVERLOCK COLLAR SETTER Office Visit [facility] - Rheumatology [address] [place] [address] Gloria Smith MD [address] [place] [phone] documented as of this encounter Visit Diagnoses [...] r documented in this encounter Care Teams Welding Specialist Relationship Specialty Start Date End Date Tomas Hyman MD [address] [facility] [address] [place] [address] PCP - General Family Medicine 12/31/13 05/09/18 Isidro Heredia MD Rheumatology 02/09/11 documented as of this encounter
--- OUTSIDE RECORDS SUMMARY | 2024-05-03 09:06 | XMS_ITS | Encounter Summary ---
Author Organization [facility] Address [address] [place] [address] Care Team Providers Care Drapery Installer Name Role Phone Isidro Heredia MD Unavailable [phone] Tomas Hyman MD Primary Care Provider [phone] Encounter Details Date Type Department Care Team (Latest Contact Info) Description 04/06/2015 1:43 PM FEED CRUSHER - 04/06/2015 11:59 PM FEED CRUSHER Hospital Encounter [facility] Pain Care [address] [place] [address] [place] [address] [place] [phone] Discharge Disposition: Home or Self Care Social [...] Comments Blood Pressure 132/87 04/06/2015 2:17 PM FEED CRUSHER Pulse 89 04/06/2015 2:17 PM FEED CRUSHER Temperature - - Respiratory Rate 16 04/06/2015 2:17 PM FEED CRUSHER Oxygen Saturation 98% 04/06/2015 2:17 PM FEED CRUSHER Inhaled Oxygen Concentration - - Weight - - Height - - Body Mass Index - - documented in this encounter Medications at Time of Discharge Medication Sig Dispensed Refills Start Date End Date Vysgitinvyn-Ohqxablpe-N it C-Mn (GLUCOSAMINE CHONDR 1500 COMPLX PO) [...] Contact Info) Description 06/03/2024 1:00 PM FEED CRUSHER Appointment [facility] - Rheumatology [address] [place] [address] [phone] 06/03/2024 2:00 PM FEED CRUSHER Office Visit [facility] - Rheumatology [address] [place] [address] [phone] Gloria Smith MD [address] [place] [phone] Pending Results Name Type Priority Associated Diagnoses Date /Time PAIN MANAGEMENT PROCEDURE TIME Imaging Routine Displacement of lumbar intervertebral disc without myelopathy Thoracic or lumbosacral neuritis or radiculitis, unspecified 04/06/2015 2:12 PM FEED CRUSHER documented as of this encounter Visit Diagnoses Diagnosis Displacement of lumbar intervertebral disc without myelopathy- Primary documented in this encounter Care Teams Drapery Installer Relationship Specialty Start Date End Date Tomas Hyman MD [address] [facility] [address] [place] [address] PCP - General Family Medicine 12/31/13 05/09/18 Isidro Heredia MD Rheumatology 02/09/11 documented as of this encounter
--- OUTSIDE RECORDS SUMMARY | 2024-05-03 09:06 | XMS_ITS | Encounter Summary ---
Author Organization [facility] Address [address] [facility] [place] [address] Care Team Providers Care Bowling Alley Mechanic Name Role Phone Isidro Heredia MD Unavailable [phone] Tomas Hyman MD Primary Care Provider [phone] Reason for Visit * Treatment (Routine) - Closed Specialty Diagnoses / Procedures Referred By Lawrence shah Referred To Contact Infusion Therapy Nurse Diagnoses Rheumatoid arthritis(714.0) ([facility]) Procedures MD INJECTION TOCILIZUMAB 1 MG Isidro Heredia MD [address] [place] [address] [phone] Referral ID Status Reason Start Date Expiration Date Visits Re quested Visits Authorized [id number] Closed 09/29/2014 04/29/2015 1 6 Encounter Details Date Type Department Care Team (Late st Contact Info) Description 03/04/2015 1:40 PM DITCHER - 03/04/2015 11:59 PM DITCHER Hospital Encounter [facility] - Rheumatology [address] [place] [address] Isidro Heredia MD [address] [place] [address] Discharge Disposition: Home or Self [...] Comments Blood Pressure 133/88 03/04/2015 2:01 PM DITCHER Pulse 103 03/04/2015 2:01 PM DITCHER Temperature 37 ??C (98.6 ??F) 03/04/2015 2:01 PM DITCHER Respiratory Rate 16 03/04/2015 2:01 PM DITCHER Oxygen Saturation - - Inhaled Oxygen Concentration - - Weight 116.1 kg (256 lb) 03/04/2015 2:01 PM DITCHER Height - - Body Mass Index 36.73 02/04/2015 2:14 PM CDT documented in this encounter Discharge Instructions * Discharge Instructions* Carlos Foreman RN - 03/04/2015 2:54 PM DITCHER [place] Rheumatology Post Infusion instructions You have [...] Sunday through Sunday-5 call the office at [phone] After hours or on the weekend call the exchange at [phone] If you have had lab work done [...] chosen [facility] as your provider. Carlos Foreman RN HER documented in this encounter Medications at Time of Discharge Medication Sig Dispensed Refills Start Date End Date Mtjfwbkdmjk-Ymsnjubuh-N it C-Mn (GLUCOSAMINE CHONDR 1500 COMPLX PO) [...] oxyCODONE-acetaminophen (PERCOCET) 5-325 MG tabletIndications:Rheum atoid arthritis(714.0) ([facility]) [...] - 03/04/2015 2:34 PM CST JOSE Deng [id number] 03/04/2015 Diagnosis: Rheumatoid arthritis, unspecified [M06.9]. Patient [...] Yes Next treatment? 4wk Carlos Foreman RN HER documented in this encounter Plan of Treatment Upcoming Encounters Date Type Department Care Team (Late st Contact Info) Description 06/03/2024 1:00 PM DITCHER Appointment [facility] - Rheumatology [address] [place] [address] [phone] 06/03/2024 2:00 PM DITCHER Office Visit [facility] - Rheumatology [address] [place] [address] [phone] Gloria Smith MD [address] [place] [phone] documented as of this encounter Visit Diagnoses Diagnosis Rheumatoid arthritis(714.0) ([facility]) Rheumatoid arthritis documented in this encounter Administered Medications Inactive Administered Medications - up to 3 most recent administrations Medication Order MAR Action Action Date Dose Rate Site tocilizumab (ACTEMRA) 800 mg in 0.9% NaCl IVPB 800 mg, at 140 mL/hr, Intravenous, ONCE, 1 dose, On Gabriela 03/04/15 at 1415, 2 vials Actemra 400mg 0 waste. Stable 24hrs RT $ Given 03/04/2015 2:16 PM DITCHER 800 mg 118 mL/hr documented in this encounter Care Teams Bowling Alley Mechanic Relationship Specialty Start Date End Date Tomas Hyman MD [address] [facility] [address] [place] [address] PCP - General Family Medicine 12/31/13 05/09/18 Isidro Heredia MD Rheumatology 02/09/11 documented as of this encounter
--- OUTSIDE RECORDS SUMMARY | 2024-05-03 09:06 | XMS_ITS | Encounter Summary ---
Author Organization [facility] Address [address] [place] [address] Care Team Providers Care Sewing Machine Operator Zipper Name Role Phone Isidro Heredia MD Unavailable [phone] Tomas Hyman MD Primary Care Provider [phone] Reason for Visit * Treatment (Routine) - Closed Specialty Diagnoses / Procedures Referred By Lawrence shah Referred To Contact Infusion Therapy Nurse Diagnoses Rheumatoid arthritis(714.0) ([facility]) Procedures [place] INJECTION TOCILIZUMAB 1 MG Isidro Heredia MD [address] [place] [address] [address] Referral ID Status Reason Start Date Expiration Date Visits Re quested Visits Authorized [id number] Closed 05/08/2014 10/05/2014 1 6 Encounter Details Date Type Department Care Team (Late st Contact Info) Description 09/09/2014 2:30 PM CDT - 09/09/2014 11:59 PM CDT Hospital Encounter [facility] Medical [facility] - Rheumatology [address] [place] [address] Isidro Heredia MD [address] [place] [address] Discharge Disposition: Home or Self [...] Foreman, RN - 09/09/2014 3:07 PM CDT [place] Rheumatology Post Infusion instructions You [...] through Sunday 9-5 call the office at [phone] After hours or on the weekend call the exchange at [phone] If you have had lab work done [...] Sig Dispensed Refills Start Date End Date Naguqbokdns-Lwedvvrbc-Pe t C-Mn (GLUCOSAMINE CHONDR 1500 COMPLX PO) [...] - 09/09/2014 2:51 PM CDT JOSE Deng [id number] 09/09/2014 Diagnosis: Rheumatoid arthritis [714.0]. Patient questionnaire [...] Contact Info) Description 06/03/2024 1:00 PM SUPERVISOR FINAL Appointment [facility] - Rheumatology [address] [place] [address] [phone] 06/03/2024 2:00 PM SUPERVISOR FINAL Office Visit [facility] - Rheumatology [address] [place] [address] Gloria Smith MD [address] [place] [phone] documented as of this encounter Visit Diagnoses [...] Hand documented in this encounter Care Teams Sewing Machine Operator Zipper Relationship Specialty Start Date End Date Tomas Hyman MD [address] [facility] [address] [place] [address] PCP - General Family Medicine 12/31/13 05/09/18 Isidro Heredia MD Rheumatology 02/09/11 documented as of this encounter
--- OUTSIDE RECORDS SUMMARY | 2024-05-03 09:06 | XMS_ITS | Encounter Summary ---
Author Organization [facility] Address [address] [place] [address] Care Team Providers Care Lay Out Carpenter Name Role Phone Isidro Heredia MD Unavailable [phone] Tomas Hyman MD Primary Care Provider Reason for Visit * Treatment (Routine) - Closed Specialty Diagnoses / Procedures Referred By Lawrence shah Referred To Contact Infusion Therapy Nurse Diagnoses Rheumatoid arthritis(714.0) ([facility]) Procedures CA INJECTION TOCILIZUMAB 1 MG Isidro Heredia MD [address] [place] [address] [address] Referral ID Status Reason Start Date Expiration Date Visits Re quested Visits Authorized [id number] Closed 09/29/2014 04/29/2015 1 6 Encounter Details Date Type Department Care Team (Late st Contact Info) Description 04/07/2015 2:51 PM RELIGIOUS STUDIES PROFESSOR - 04/07/2015 11:59 PM RELIGIOUS STUDIES PROFESSOR Hospital Encounter [facility] Medical [facility] - Rheumatology [address] [place] [address] Isidro Heredia MD [address] [place] [address] Discharge Disposition: Home or Self [...] Comments Blood Pressure 120/88 04/07/2015 3:10 PM RELIGIOUS STUDIES PROFESSOR Pulse 108 04/07/2015 3:10 PM RELIGIOUS STUDIES PROFESSOR Temperature 37 ??C (98.6 ??F) 04/07/2015 3:10 PM RELIGIOUS STUDIES PROFESSOR Respiratory Rate 16 04/07/2015 3:10 PM RELIGIOUS STUDIES PROFESSOR Oxygen Saturation - - Inhaled Oxygen Concentration - - Weight 117 kg (258 lb) 04/07/2015 3:10 PM RELIGIOUS STUDIES PROFESSOR Height 177.8 cm (5' 10 ) 04/07/2015 3:10 PM RELIGIOUS STUDIES PROFESSOR Body Mass Index 37.02 04/07/2015 3:10 PM RELIGIOUS STUDIES PROFESSOR documented in this encounter Discharge Instructions * Discharge Instructions* Jody Sahu RN - 04/07/2015 3:40 PM RELIGIOUS STUDIES PROFESSOR [place] Rheumatology Post Infusion instructions You have [...] Sunday through 01-02 call the office at [phone] After hours or on the weekend call the exchange at [phone] If you have had lab work done [...] Hospital as your provider. Jody Sahu RN GIOUS STUDIES PROFESSOR documented in this encounter Medications at Time of Discharge Medication Sig Dispensed Refills Start Date End Date Egmbpyhukaa-Cphrmeddx-J it C-Mn (GLUCOSAMINE CHONDR 1500 COMPLX PO) [...] 04/07/2015 3:42 PM CST JOSE Chalino Deng [id number] 04/07/2015 Diagnosis: Rheumatoid arthritis, unspecified [M06.9]. Pt [...] Next treatment? 4 weeks Jody Sahu RN GIOUS STUDIES PROFESSOR documented in this encounter Plan of Treatment Upcoming Encounters Date Type Department Care Team (Late st Contact Info) Description 06/03/2024 1:00 PM RELIGIOUS STUDIES PROFESSOR Appointment [facility] - Rheumatology [address] [place] [address] 06/03/2024 2:00 PM RELIGIOUS STUDIES PROFESSOR Office Visit [facility] - Rheumatology [address] [place] [address] Gloria Smith MD [address] [place] [address] [phone] documented as of this encounter Visit Diagnoses [...] 24hrs RT $ Given 04/07/2015 3:30 PM RELIGIOUS STUDIES PROFESSOR 800 mg 140 mL/hr documented in this encounter Care Teams Lay Out Carpenter Relationship Specialty Start Date End Date Tomas Hyman MD [address] [facility] [address] [place] [address] PCP - General Family Medicine 12/31/13 05/09/18 Isidro Heredia MD Rheumatology 02/09/11 documented as of this encounter
--- OUTSIDE RECORDS SUMMARY | 2024-05-03 09:06 | XMS_ITS | Encounter Summary ---
Author Organization [facility] Address [address] [facility] [place] [address] Care Team Providers Care Export Specialist Name Role Phone Isidro Heredia MD Unavailable [phone] Tomas Hyman MD Primary Care Provider [phone] Reason for Visit * Reason Comments Rheumatoid Arthritis * Evaluate & Treat (Routine) - Closed Specialty Diagnoses / Procedures Referred By Lawrence t Referred To Contact Diagnoses Rheumatoid arthritis(714.0) ([facility]) Procedures CA OFFICE/OUTPT VISIT,EST,JULITO I Tomas Hyman MD [address] [place] [address] Isidro Heredia MD [address] [place] [address] Referral ID Status Reason Start Date Expiration Date Visits Re quested Visits Authorized [id number] Closed 09/09/2014 03/08/2015 5 5 Encounter Details Date Type Department Care Team (Late st Contact Info) Description 02/04/2015 2:15 PM CDT Office Visit [facility] Medical [facility] - Rheumatology [address] [place] [address] Isidro Heredia MD [address] [place] [address] Rheumatoid arthritis(714.0) (HCC) (Primary Dx); Chronic [...] PO) Take by mouth once daily. ??? Mofoujtlctn-Mhqbykbwb-Tia C-Mn (GLUCOSAMINE CHONDR 1500 COMPLX PO) Take [...] st Contact Info) Description 06/03/2024 1:00 PM DIP BRAZIER Appointment [facility] - Rheumatology [address] [place] [address] [phone] 06/03/2024 2:00 PM DIP BRAZIER Office Visit [facility] - Rheumatology [address] [place] [address] [phone] Gloria Smith MD [address] [place] [address] [phone] documented as of this encounter Visit Diagnoses Diagnosis Rheumatoid arthritis(714.0) ([facility])- Primary Rheumatoid arthritis Chronic pain syndrome documented in this encounter Care Teams Export Specialist Relationship Specialty Start Date End Date Tomas Hyman MD [address] [facility] [address] [place] [address] PCP - General Family Medicine 12/31/13 05/09/18 Isidro Heredia MD Rheumatology 02/09/11 documented as of this encounter
--- OUTSIDE RECORDS SUMMARY | 2024-05-03 09:07 | XMS_ITS | Encounter Summary ---
Author Organization [facility] Address [address] [place] [address] Care Team Providers Care Quality Assurance Coach Name Role Phone Isidro Heredia MD Unavailable [phone] Tomas Hyman MD Primary Care Provider [phone] Encounter Details Date Type Department Care Team (Latest Contact Info) Description 04/28/2014 9:58 AM STENOTYPE OPERATOR - 04/28/2014 11:59 PM STENOTYPE OPERATOR Hospital Encounter [facility] Pain Care [address] [place] [address] [place] [address] [place] [phone] Discharge Disposition: Home or Self Care Social [...] Comments Blood Pressure 156/97 04/28/2014 10:26 AM STENOTYPE OPERATOR Pulse 97 04/28/2014 10:26 AM STENOTYPE OPERATOR Temperature - - Respiratory Rate 16 04/28/2014 10:26 AM STENOTYPE OPERATOR Oxygen Saturation 97% 04/28/2014 10:26 AM STENOTYPE OPERATOR Inhaled Oxygen Concentration - - Weight - - Height - - Body Mass Index - - documented in this encounter Discharge Instructions * Patient Instructions* Naomi Cain RN - 04/28/2014 10:10 AM STENOTYPE OPERATOR [facility] Procedure Center Pain Discharge Instructions Selective [...] headache, or any other problems, please call [phone] or after hours callDr. Mirza at [phone] and tell them your physician's name. The exchange will alert the physician ergonomics consultant. If sedation is given: No sedation given. For Your Next Visit: No additional instructions. Other Instructions: May remove band-aid in 12 Hours. Return 2 week follow up. Patient Signature: Date: RN Signature: Date: OTYPE OPERATOR documented in this encounter Medications at Time of Discharge Medication Sig Dispensed Refills Start Date End Date Cvdasvrqeto-Ofzdulwhh-Cu t C-Mn (GLUCOSAMINE CHONDR 1500 COMPLX PO) [...] 5-325 MG tabletIndications:Rheuma toid arthritis(714.0) ([facility]) Take 1 Tab by mouth [...] 0.9% NaCl 0.9 % 100 mLIndications:Rheumatoid arthritis(714.0) ([facility]) Pt to receive IV infusion [...] Coumidin, Plavix or other blood thinners. Responsible emergency vehicle driver is not needed due to the [...] Follow Up: 1 week Alejandro Mirza MD OTYPE OPERATOR documented in this encounter Plan of Treatment Upcoming Encounters Date Type Department Care Team (Late st Contact Info) Description 06/03/2024 1:00 PM STENOTYPE OPERATOR Appointment [facility] - Rheumatology [address] [place] [address] 06/03/2024 2:00 PM STENOTYPE OPERATOR Office Visit [facility] - Rheumatology [address] [place] [address] Gloria Smith MD [address] [place] [address] [phone] documented as of this encounter Procedures Procedure Name Priority Date/Time Associated Diagnosis Comments PAIN MANAGEMENT PROCEDURE TIME Routine 04/28/2014 10:24 AM STENOTYPE OPERATOR Displacement Of Lumbar Intervertebral Disc Without Myelopathy Thoracic or lumbosacral neuritis or radiculitis, unspecified documented in this encounter Results * PAIN MANAGEMENT PROCEDURE TIME (04/28/2014 10:24 AM STENOTYPE OPERATOR) Anatomical Region Laterality Modality X-Ray Angiograph y Narrative 04/28/2014 10:31 AM STENOTYPE OPERATOR Alejandro Mirza MD ? 04/28/2014 10:31 AM [...] Coumidin, Plavix or other blood thinners. ??Responsible emergency vehicle driver is not needed due to the [...] Admin. by Other Provider 04/28/2014 10:19 AM STENOTYPE OPERATOR 80 mg documented in this encounter Care Teams Quality Assurance Coach Relationship Specialty Start Date End Date Tomas Hyman MD [address] [facility] [address] [place] [address] PCP - General Family Medicine 12/31/13 05/09/18 Isidro Heredia MD Rheumatology 02/09/11 documented as of this encounter
--- OUTSIDE RECORDS SUMMARY | 2024-05-03 09:07 | XMS_ITS | Encounter Summary ---
Author Organization [facility] Address [address] [facility] [place] [address] Care Team Providers Care Bus Washer Name Role Phone Isidro Heredia MD Unavailable [phone] Tomas Hyman MD Primary Care Provider Reason for Visit * Reason Comments Pain Knee right Pain Back lower back Pain Hand obdulia hands, swollen a nd hot feeling Pain Muscle upper and lower extr emeties * Evaluate & Treat (Routine) - Closed Specialty Diagnoses / Procedures Referred By Contsarahi t Referred To Contact Diagnoses Rheumatoid arthritis(714.0) ([facility]) Procedures [place] OFFICE VISIT DURING HOURS Tomas Hyman MD [address] [place] [address] Isidro Heredia MD [address] [place] [address] Referral ID Status Reason Start Date Expiration Date Visits Re quested Visits Authorized [id number] Closed 08/12/2014 02/08/2015 3 3 Encounter Details Date Type Department Care Team (Late st Contact Info) Description 08/12/2014 11:15 AM CDT Office Visit [facility] - Rheumatology [address] [place] [address] Isidro Heredia MD [address] [place] [address] Rheumatoid arthritis(714.0) (HCC) (Primary Dx) [...] PO) Take by mouth once daily. ??? Seerfdifeuq-Izdxyxbmo-Urx C-Mn (GLUCOSAMINE CHONDR 1500 COMPLX PO) Take [...] Contact Info) Description 06/03/2024 1:00 PM EXERCISE SCIENTIST Appointment [facility] - Rheumatology [address] [place] [address] 06/03/2024 2:00 PM EXERCISE SCIENTIST Office Visit [facility] - Rheumatology [address] [place] [address] Gloria Smith MD [address] [place] [phone] documented as of this encounter Procedures Procedure [...] 6:39 PM CDT Narrative Resulting Agency Comment [facility] [address] ??[facility] [phone] Isidro Heredia MD LAB - CHEMISTRY ORD ERABLES Performing Organization Address City/[facility]/ZIP Co de Phone Number [facility] INSURANCE BILL * SED RATE WESTERGREN (08/12/2014 2:08 PM CDT) Erythrocyte Sedimentation Rate Westergren 13 0 - 30 mm/hr [facility] INSURANCE BILL Blood specimen (specimen) BLOOD SPECIMEN / Unknown 08/12/2014 2:08 PM CDT 08/12/2014 6:39 PM CDT Narrative Resulting Agency Comment [facility] [employer] ??[facility] [phone] Isidro Heredia MD LAB - HEMATOLOGY OR DERABLES [facility] INSURANCE BILL * C-REACTIVE PROTEIN (08/12/2014 2:08 PM CDT) C-Reactive Protein 1.6 0.0 - 4.9 mg/L [facility] INSURANCE BILL Blood specimen (specimen) BLOOD SPECIMEN / Unknown 08/12/2014 2:08 PM CDT 08/12/2014 6:39 PM CDT Narrative Resulting Agency Comment [facility] [address] ??[facility] [phone] Isidro Heredia MD LAB - CHEMISTRY ORD [...] PM CDT Narrative Resulting Agency Comment [facility] [address] ??[facility] [phone] Isidro Heredia MD LAB - CHEMISTRY ORD [...] CDT Narrative Resulting Agency Comment [facility] [address] ??[facility] [phone] Isidro Heredia MD LAB - SEROLOGY MARII [...] 6:39 PM CDT Narrative Resulting Agency Comment [address] ??[facility] [phone] Isidro Heredia MD LAB - HEMATOLOGY OR [...] (Smooth) ? Histone ? Speckled ? Sm, SENIOR STAFF PSYCHOLOGIST, SCL-70, ??SLE,MCTD,Scleroderma,Sjogrens ? SS-A/SS-B ? Nucleolar ?SCL-70, PM-1/SCL ??High titers Scleroderma Poly- ? myositis/Scleroderma Overlap ? Centromere ?? Centromere ?PSS w/Crest syndrome variable ?? 08/12/2014 2:03 PM CDT 08/12/2014 6:39 PM CDT Narrative Resulting Agency Comment [facility] [place] [address] ??[place] [phone] Isidro Heredia MD LAB - PATHOLOGY/CYT OLOGY ORDERABLES Performing Organization Address [facility] Co de Phone Number [facility] INSURANCE BILL * ROSA BLOOD SCREEN W/REFLEX TITER (08/12/2014 2:03 PM CDT) ROSA See patterns [facility] INSURANCE BILL Comment: ?Negative ?? <1:80 ?Borderline ??1:80 ?Positive ?? >1:80 Blood specimen (specimen) BLOOD SPECIMEN / Unknown 08/12/2014 2:03 PM CDT 08/12/2014 6:39 PM CDT Narrative Resulting Agency Comment [facility] [address] ??[place] [phone] Isidro Heredia MD LAB - CHEMISTRY ORD ERABLES Performing Organization Address [facility]/ZIP Co de Phone Number [facility] INSURANCE [...] CDT Narrative Resulting Agency Comment [facility] [address] ??[facility] [phone] Isidro Heredia MD LAB - SEROLOGY MARII ARAUJO Performing Organization Address [facility] Co de Phone Number [facility] INSURANCE BILL * C-REACTIVE PROTEIN (08/12/2014 2:03 PM CDT) C-Reactive Protein 1.5 0.0 - 4.9 mg/L [facility] INSURANCE BILL Blood specimen (specimen) BLOOD SPECIMEN / Unknown 08/12/2014 2:03 PM CDT 08/12/2014 6:39 PM CDT Narrative Resulting Agency Comment [facility] [place] [address] [facility] ??[place] [phone] Isidro Heredia MD LAB - CHEMISTRY CALEB [...] PM CDT Narrative Resulting Agency Comment [facility] [address] ??[facility] [phone] Isidro Heredia MD LAB - CHEMISTRY ORD [...] PM CDT Narrative Resulting Agency Comment [facility] [address] ??[facility] [phone] Isidro Heredia MD LAB - HEMATOLOGY OR DERABLES [facility] INSURANCE BILL * XR HANDS BILAT SINGLE VIEW (08/12/2014 1:12 PM CDT) Anatomical Region Laterality Modality Wrist / Hand, Upper Extremity Co mputed Radiography Narrative 08/13/2014 5:38 PM CDT Isidro Herdeia MD ? 08/13/2014 ??5:38 PM Xray bilat hands: Rheumatoid Arthritis with joint space narrowing mcps and radial-carpal joints. No erosions. Isidro Heredia MD DIAGNOSTIC IMAGING ORDERABLES documented in this encounter Visit Diagnoses Diagnosis Rheumatoid arthritis(714.0) (HCC)- Primary Rheumatoid arthritis documented in this encounter Care Teams Bus Washer Relationship Specialty Start Date End Date Tomas Hyman MD [address] [place] [address] PCP - General Family Medicine 12/31/13 05/09/18 Isidro Heredia MD Rheumatology 02/09/11 documented as of this encounter
--- OUTSIDE RECORDS SUMMARY | 2024-05-03 09:07 | XMS_ITS | Encounter Summary ---
Author Organization [facility] Address [address] [facility] [place] [address] Care Team Providers Care Cotton Sampler Name Role Phone Isidro Heredia MD Unavailable Tomas Hyman MD Primary Care Provider Reason for Referral * Procedure - Closed Specialty Diagnoses / Procedures Referred By Contac t Referred To Contact Cardiology Diagnoses Tachycardia Procedures EKG 12-LEAD Isidro Heredia MD [address] [place] [address] Referral ID Status Reason Start Date Expiration Date Visits Re quested Visits Authorized [id number] Closed 05/26/2014 11/22/2014 1 1 DIRECTOR Reason for Visit * Reason Comments Rheumatoid Arthritis Pain Joint rt shoulder pain- wa nts cortisone injection, hand, wist, ankle pain * Evaluate & Treat (Routine) - Closed Specialty Diagnoses / Procedures Referred By Contsarahi t Referred To Contact Diagnoses Rheumatoid arthritis(714.0) ([facility]) Procedures [place] OFFICE VISIT DURING HOURS Tomas Hyman MD [address] [place] [address] Isidro Heredia MD [address] [place] [address] Referral ID Status Reason Start Date Expiration Date Visits Re quested Visits Authorized [id number] Closed 02/10/2014 02/10/2015 6 6 Encounter Details Date Type Department Care Team (Late st Contact Info) Description 05/22/2014 12:00 PM HALL DIRECTOR Office Visit [facility] - Rheumatology [address] [place] [address] Isidro Heredia MD [address] [facility] [place] [address] Rheumatoid arthritis (HCC) (Primary Dx); Chronic pain [...] Comments Blood Pressure 102/94 05/22/2014 12:35 PM HALL DIRECTOR Pulse - - Temperature - - Respiratory Rate - - Oxygen Saturation - - Inhaled Oxygen Concentration - - Weight 115.7 kg (255 lb) 05/22/2014 12:35 PM HALL DIRECTOR Height - - Body Mass Index 36.59 05/11/2014 9:22 AM HALL DIRECTOR documented in this encounter Progress Notes * [...] PO) Take by mouth once daily. ??? Qziddnkdjwk-Lrtmwmeah-Tzr C-Mn (GLUCOSAMINE CHONDR 1500 COMPLX PO) Take [...] TRIAMCINOLON ACETONID NOS 10 MG INJ ??? VT DRAIN/INJECT LARGE JOINT/BURSA ??? oxyCODONE-acetaminophen [...] Follow up in office in 4 weeks DIRECTOR documented in this encounter Plan of Treatment Upcoming Encounters Date Type Department Care Team (Late st Contact Info) Description 06/03/2024 1:00 PM HALL DIRECTOR Appointment [facility] - Rheumatology [address] [place] [address] [phone] 06/03/2024 2:00 PM HALL DIRECTOR Office Visit [facility] - Rheumatology [address] [place] [address] [phone] Gloria Smith MD [address] [place] [phone] Scheduled Orders Name Type Priority Associated Diagnoses Orde r Schedule EKG 12-LEAD ECG Routine Tachycardia 1 Occurrences starting 05/26/2014 until 05/26/2015 documented as of this encounter Visit Diagnoses Diagnosis Rheumatoid arthritis(714.0) ([facility])- Primary Rheumatoid arthritis Chronic pain syndrome Lumbar radiculopathy Thoracic or lumbosacral neuritis or radiculitis, unspecified Triceps tendonitis Other enthesopathy of elbow region Tachycardia Tachycardia, unspecified documented in this encounter Administered Medications Administered Medications Medication Order MAR Action Action Date Dose Rate Site Triamcinolone Acetonide Intraarticular Given 05/22/2014 80 mL See comments documented in this encounter Care Teams Cotton Sampler Relationship Specialty Start Date End Date Tomas Hyman MD [address] [facility] [address] [place] [address] PCP - General Family Medicine 12/31/13 05/09/18 Isidro Heredia MD Rheumatology 02/09/11 documented as of this encounter
--- OUTSIDE RECORDS SUMMARY | 2024-05-03 09:07 | XMS_ITS | Encounter Summary ---
Author Organization [facility] Address [address] [facility] [place] [address] Care Team Providers Care Catheter Finisher And Inspector Name Role Phone Isidro Heredia MD Unavailable [phone] Tomas Hyman MD Primary Care Provider [phone] Reason for Visit * Reason Onset Date Comments Forms 06/24/2014 Encounter Details Date Type Department Care Team (Late st Contact Info) Description 06/24/2014 Telephone [facility] Medical [facility] - Rheumatology [address] [place] [address] [phone] Isidro Heredia MD [address] [place] [address] Forms Social History Tobacco Use Types [...] well. I will call him once completed. ESS DEVELOPMENT MANAGER * Telephone Encounter - Erika Julien - 06/24/2014 11:59 AM CST Pt wants to know what the statis is on his forms for work ESS DEVELOPMENT MANAGER documented in this encounter Plan of Treatment Upcoming Encounters Date Type Department Care Team (Late st Contact Info) Description 06/03/2024 1:00 PM PROCESS DEVELOPMENT MANAGER Appointment [facility] - Rheumatology [address] [place] [address] [phone] 06/03/2024 2:00 PM PROCESS DEVELOPMENT MANAGER Office Visit [facility] - Rheumatology [address] [place] [address] Gloria Smith MD [address] [place] [address] [phone] documented as of this encounter Visit Diagnoses Not on filedocumented in this encounter Care Teams Catheter Finisher And Inspector Relationship Specialty Start Date End Date Tomas Hyman MD [address] [place] [address] PCP - General Family Medicine 12/31/13 05/09/18 Isidro Heredia MD Rheumatology 02/09/11 documented as of this encounter
--- OUTSIDE RECORDS SUMMARY | 2024-05-03 09:07 | XMS_ITS | Encounter Summary ---
Author Organization [facility] Address [address] [facility] [place] [address] Care Team Providers Care Test Rack Operator Name Role Phone Isidro Heredia MD Unavailable [phone] Tomas Hyman MD Primary Care Provider [phone] Reason for Visit * Treatment (Routine) - Closed Specialty Diagnoses / Procedures Referred By Contsarahi t Referred To Contact Pain Management Diagnoses Displacement of lumbar intervertebral disc without myelopathy Thoracic or lumbosacral neuritis or radiculitis, unspecified Procedures UT INJ,FORAMEN,L/S,1 LEVEL UT INJ,FORAMEN,L/S,[place] [id number] [address] [facility] Pain Care [address] [place] [address] Referral ID Status Reason Start Date Expiration Date Visits Re quested Visits Authorized [id number] Closed 03/10/2014 09/06/2014 6 6 Encounter Details Date Type Department Care Team (Latest Contact Info) Description 04/28/2014 9:57 AM CLINICAL DATA ASSISTANT Hospital Encounter [facility] Pain Care [address] [place] [address] [place] [address] [address] Discharge Disposition: Home or Self [...] Sig Dispensed Refills Start Date End Date Zpjdltacaxc-Lczeuqtsn-Wl t C-Mn (GLUCOSAMINE CHONDR 1500 COMPLX PO) [...] 5-325 MG tabletIndications:Rheuma toid arthritis(714.0) ([facility]) Take 1 Tab by mouth [...] Contact Info) Description 06/03/2024 1:00 PM CLINICAL DATA ASSISTANT Appointment [facility] - Rheumatology [address] [place] [address] [phone] 06/03/2024 2:00 PM CLINICAL DATA ASSISTANT Office Visit [facility] - Rheumatology [address] [place] [address] [phone] Gloria Smith MD [address] [place] [address] [phone] documented as of this encounter Visit Diagnoses Not on filedocumented in this encounter Care Teams Test Rack Operator Relationship Specialty Start Date End Date Tomas Hyman MD [address] [facility] [address] [place] [address] PCP - General Family Medicine 12/31/13 05/09/18 Isidro Heredia MD Rheumatology 02/09/11 documented as of this encounter
--- OUTSIDE RECORDS SUMMARY | 2024-05-03 09:07 | XMS_ITS | Encounter Summary ---
Author Organization [facility] Address [address] [place] [address] Care Team Providers Care Preforming Machine Operator Name Role Phone Isidro Heredia MD Unavailable [phone] Tomas Hyman MD Primary Care Provider [phone] Reason for Referral * Procedure - Closed Specialty Diagnoses / Procedures Referred By Contac t Referred To Contact Cardiology Diagnoses Tachycardia Procedures EKG 12-LEAD Isidro Heredia MD [address] [place] [address] Referral ID Status Reason Start Date Expiration Date Visits Re quested Visits Authorized [id number] Closed 05/26/2014 11/22/2014 1 1 Reason for Visit * Treatment (Routine) - Closed Specialty Diagnoses / Procedures Referred By Contac t Referred To Contact Infusion Therapy Nurse Diagnoses Rheumatoid arthritis(714.0) ([facility]) Procedures [place] INJECTION TOCILIZUMAB 1 MG Isidro Heredia MD [address] [place] [address] [phone] Referral ID Status Reason Start Date Expiration Date Visits Re quested Visits Authorized [id number] Closed 05/08/2014 10/05/2014 1 6 Encounter Details Date Type Department Care Team (Late st Contact Info) Description 07/13/2014 2:25 PM CDT - 07/13/2014 11:59 PM CDT Hospital Encounter [facility] - Rheumatology [address] [place] [address] Isidro Heredia MD [address] [facility] [place] [address] Discharge Disposition: Home or Self Care Social [...] Foreman RN - 07/13/2014 3:07 PM CDT [place] Rheumatology Post Infusion instructions [...] through Sunday 9-5 call the office at [phone] After hours or on the weekend call the exchange at [phone] If you have had lab work done [...] Sig Dispensed Refills Start Date End Date Necigogzpqz-Hmmznueyx-Jp t C-Mn (GLUCOSAMINE CHONDR 1500 COMPLX PO) [...] 5-325 MG tabletIndications:Rheuma toid arthritis(714.0) ([facility]) Take 1 Tab by mouth [...] 0.9 % 100 mLIndications:Rheumatoid arthritis(714.0) ([facility]) Pt to receive IV infusion 800mg Actemra/100cc0.9%norm al saline, per nasir Avila's office practice of Actemra 8mg/kg over 60 minutes and the Actemra schedule; first dose, then every 4 weeks thereafter, unless further orders received from . Exp 09/04/2014 09/04/2013 09/04/2014 documented as of this encounter Progress Notes * Carlos Foreman, RN - 07/13/2014 3:13 PM CDT JOSE Deng [id number] 07/13/2014 Diagnosis: Tachycardia [785.0]. Patient questionnaire results [...] st Contact Info) Description 06/03/2024 1:00 PM SPRAYER INSECTICIDE Appointment [facility] - Rheumatology [address] [place] [address] 06/03/2024 2:00 PM SPRAYER INSECTICIDE Office Visit [facility] - Rheumatology [address] [place] [address] Gloria Smith MD [address] [place] [phone] Scheduled Orders Name Type Priority Associated [...] 1245, 2 vials used of Actemra 400MG [facility] 31995-237-21 with 0 WASTE $ Given 07/13/2014 2:50 PM CDT 800 mg 140 m L/hr documented in this encounter Care Teams Preforming Machine Operator Relationship Specialty Start Date End Date Tomas Hyman MD [address] [facility] [address] [place] [address] PCP - General Family Medicine 12/31/13 05/09/18 Isidro Heredia MD Rheumatology 02/09/11 documented as of this encounter
--- OUTSIDE RECORDS SUMMARY | 2024-05-03 09:07 | XMS_ITS | Encounter Summary ---
Author Organization [facility] Address [address] [facility] [place] [address] Care Team Providers Care Valet Manager Name Role Phone Isidro Heredia MD Unavailable [phone] Tomas Hyman MD Primary Care Provider [phone] Reason for Visit * Treatment (Routine) - Closed Specialty Diagnoses / Procedures Referred By Contsarahi t Referred To Contact Pain Management Diagnoses Displacement of lumbar intervertebral disc without myelopathy Thoracic or lumbosacral neuritis or radiculitis, unspecified Procedures DE INJ,FORAMEN,L/S,1 LEVEL DE INJ,FORAMEN,L/S,[place] [address] [address] [facility] [address] [place] [address] Referral ID Status Reason Start Date Expiration Date Visits Re quested Visits Authorized [id number] Closed 03/10/2014 09/06/2014 6 6 Encounter Details Date Type Department Care Team (Latest Contact Info) Description 04/14/2014 9:45 AM LAST PATTERN GRADER - 04/14/2014 9:48 AM LAST PATTERN GRADER Hospital Encounter [facility] Pain Care [address] [place] [address] [place] [address] [place] [phone] Discharge Disposition: Home or Self Care Social [...] Sig Dispensed Refills Start Date End Date Jvrorsfdnhk-Jrlhdfflg-Cc t C-Mn (GLUCOSAMINE CHONDR 1500 COMPLX PO) [...] Contact Info) Description 06/03/2024 1:00 PM LAST PATTERN GRADER Appointment [facility] - Rheumatology [address] [place] [address] [phone] 06/03/2024 2:00 PM LAST PATTERN GRADER Office Visit [facility] - Rheumatology [address] [place] [address] [phone] Gloria Smith MD [address] [place] [phone] documented as of this encounter Visit Diagnoses Not on filedocumented in this encounter Care Teams Valet Manager Relationship Specialty Start Date End Date Tomas Hyman MD [address] [facility] [address] [place] [address] PCP - General Family Medicine 12/31/13 05/09/18 Isidro Heredia MD Rheumatology 02/09/11 documented as of this encounter
--- OUTSIDE RECORDS SUMMARY | 2024-05-03 09:07 | XMS_ITS | Encounter Summary ---
Author Organization [facility] Address [address] [facility] [place] [address] Care Team Providers Care Roper Operator Name Role Phone Isidro Heredia MD Unavailable Tomas Hyman MD Primary Care Provider Reason for Visit * Reason Comments Rheumatoid Arthritis * Evaluate & Treat (Routine) - Closed Specialty Diagnoses / Procedures Referred By Lawrence t Referred To Contact Diagnoses Rheumatoid arthritis(714.0) (HCC) Procedures [place] OFFICE VISIT DURING HOURS Tomas Hyman MD [address] [facility] [address] [place] [address] Isidro Heredia MD [address] [place] [address] Referral ID Status Reason Start Date Expiration Date Visits Re quested Visits Authorized [id number] Closed 02/10/2014 02/10/2015 6 6 Encounter Details Date Type Department Care Team (Late st Contact Info) Description 07/13/2014 4:15 PM CDT Office Visit [facility] Medical [facility] - Rheumatology [address] [place] [address] Isidro Heredia MD [address] [place] [address] Rheumatoid arthritis(714.0) (HCC) (Primary Dx) Social [...] PO) Take by mouth once daily. ??? Mjnknsqxohc-Gcqbddoba-Mdr C-Mn (GLUCOSAMINE CHONDR 1500 COMPLX PO) Take [...] Contact Info) Description 06/03/2024 1:00 PM ENERGY AND CONSERVATION TECHNICIAN Appointment [facility] - Rheumatology [address] [place] [address] [phone] 06/03/2024 2:00 PM ENERGY AND CONSERVATION TECHNICIAN Office Visit [facility] - Rheumatology [address] [place] [address] Gloria Smith MD [address] [place] [phone] documented as of this encounter Visit Diagnoses Diagnosis Rheumatoid arthritis(714.0) ([facility])- Primary Rheumatoid arthritis documented in this encounter Care Teams Roper Operator Relationship Specialty Start Date End Date Tomas Hyman MD [address] [facility] [address] [place] [address] PCP - General Family Medicine 12/31/13 05/09/18 Isidro Heredia MD Rheumatology 02/09/11 documented as of this encounter
--- OUTSIDE RECORDS SUMMARY | 2024-05-03 09:07 | XMS_ITS | Encounter Summary ---
Author Organization [facility] Address [address] [facility] [place] [address] Care Team Providers Care Painter Drum Name Role Phone Isidro Heredia MD Unavailable [phone] Tomas Hyman MD Primary Care Provider Reason for Visit * Reason Comments Rheumatoid Arthritis * Evaluate & Treat (Routine) - Closed Specialty Diagnoses / Procedures Referred By Lawrence shah Referred To Contact Diagnoses Rheumatoid arthritis(714.0) (HCC) Procedures [place] OFFICE VISIT DURING HOURS Tomas Hyman MD [address] [facility] [address] [place] [address] Isidro Heredia MD [address] [place] [address] Referral ID Status Reason Start Date Expiration Date Visits Re quested Visits Authorized [id number] Closed 02/10/2014 02/10/2015 6 6 Encounter Details Date Type Department Care Team (Late st Contact Info) Description 06/08/2014 4:45 PM RATE REVIEWER Office Visit [facility] Medical [facility] - Rheumatology [address] [place] [address] Isidro Heredia MD [address] [place] [address] Rheumatoid arthritis (HCC) (Primary Dx); Chronic [...] Comments Blood Pressure 141/94 06/08/2014 5:26 PM RATE REVIEWER Pulse 107 06/08/2014 5:26 PM RATE REVIEWER Temperature - - Respiratory Rate - - Oxygen Saturation - - Inhaled Oxygen Concentration - - Weight 115.7 kg (255 lb) 06/08/2014 5:26 PM RATE REVIEWER Height - - Body Mass Index 36.59 05/11/2014 9:22 AM RATE REVIEWER documented in this encounter Progress Notes * [...] PO) Take by mouth once daily. ??? Dvtcpzfgoub-Vjuihvkct-Evg C-Mn (GLUCOSAMINE CHONDR 1500 COMPLX PO) Take [...] Follow up in office in 4 weeks REVIEWER documented in this encounter Plan of Treatment Upcoming Encounters Date Type Department Care Team (Late st Contact Info) Description 06/03/2024 1:00 PM RATE REVIEWER Appointment [facility] - Rheumatology [address] [place] [address] 06/03/2024 2:00 PM RATE REVIEWER Office Visit [facility] - Rheumatology [address] [place] [address] Gloria Smith MD [address] [place] [phone] documented as of this encounter Visit Diagnoses Diagnosis Rheumatoid arthritis(714.0) ([facility])- Primary Rheumatoid arthritis Chronic pain syndrome Lumbar radiculopathy Thoracic or lumbosacral neuritis or radiculitis, unspecified documented in this encounter Care Teams Painter Drum Relationship Specialty Start Date End Date Tomas Hyman MD [address] [facility] [address] [place] [address] PCP - General Family Medicine 12/31/13 05/09/18 Isidro Heredia MD Rheumatology 02/09/11 documented as of this encounter
--- OUTSIDE RECORDS SUMMARY | 2024-05-03 09:07 | XMS_ITS | Encounter Summary ---
Author Organization [facility] Address [address] [facility] [place] [address] Care Team Providers Care Pot Filler Name Role Phone Isidro Heredia MD Unavailable [phone] Tomas Hyman MD Primary Care Provider [phone] Encounter Details Date Type Department Care Team (Late st Contact Info) Description 06/08/2014 Orders Only [facility] - Family Medicine [address] [place] [address] Isidro Heredia MD [address] [place] [address] Rheumatoid arthritis (HCC) Social History Tobacco [...] 3:18 PM CSTQuick Note: mtx ok meron AIN FISHING VESSEL * Rea Hagan MA - 06/08/2014 4:31 PM CST Pt here for infusion, Test ordered: cbc, cmp, sed rate AIN FISHING VESSEL documented in this encounter Plan of Treatment Upcoming Encounters Date Type Department Care Team (Late st Contact Info) Description 06/03/2024 1:00 PM CAPTAIN FISHING VESSEL Appointment [facility] - Rheumatology [address] [place] [address] [phone] 06/03/2024 2:00 PM CAPTAIN FISHING VESSEL Office Visit [facility] - Rheumatology [address] [place] [address] Gloria Smith MD [address] [place] [phone] documented as of this encounter Procedures Procedure Name Priority Date/Time Associated Diagnosis Comments ERYTHROCYTE SEDIMENTATION RATE Routine 06/08/2014 4:55 PM CAPTAIN FISHING VESSEL Rheumatoid Arthritis (Hcc) CBC W AUTO DIFFERENTIAL Routine 06/08/2014 4:55 PM CAPTAIN FISHING VESSEL Rheumatoid Arthritis (Hcc) COMPREHENSIVE METABOLIC PANEL Routine 06/08/2014 4:55 PM CAPTAIN FISHING VESSEL Rheumatoid Arthritis (Hcc) documented in this encounter Results * SED RATE WESTERGREN (06/08/2014 4:55 PM CAPTAIN FISHING VESSEL) Erythrocyte Sedimentation Rate Westergren 10 0 - 30 mm/hr [facility] INSURANCE BILL Blood specimen (specimen) BLOOD SPECIMEN / Unknown 06/08/2014 4:55 PM CAPTAIN FISHING VESSEL 06/08/2014 7:25 PM CAPTAIN FISHING VESSEL Narrative Resulting Agency Comment [facility] [place] [address] [facility] ??[facility] [id number] Isidro Heredia MD LAB - HEMATOLOGY OR DERABLES [facility] INSURANCE BILL * (ABNORMAL) COMPREHENSIVE METABOLIC PANEL (06/08/2014 4:55 PM CAPTAIN FISHING VESSEL) Glucose 111(H) 65 - 99 mg/dL [facility] [...] BLOOD SPECIMEN / Unknown 06/08/2014 4:55 PM CAPTAIN FISHING VESSEL 06/08/2014 7:25 PM CAPTAIN FISHING VESSEL Narrative Resulting Agency Comment [facility] [address] ??[facility] [id number] Isidro Heredia MD LAB - CHEMISTRY ORD ERABLES [facility] INSURANCE BILL * (ABNORMAL) CBC W AUTO DIFFERENTIAL (06/08/2014 4:55 PM CAPTAIN FISHING VESSEL) WBC 9.3 3.4 - 10.8 x10E3/uL [facility] [...] BLOOD SPECIMEN / Unknown 06/08/2014 4:55 PM CAPTAIN FISHING VESSEL 06/08/2014 7:25 PM CAPTAIN FISHING VESSEL Narrative Resulting Agency Comment [facility] [address] ??[facility] [phone] Isidro Heredia MD LAB - HEMATOLOGY OR DERABLES [facility] INSURANCE BILL documented in this encounter Visit Diagnoses Diagnosis Rheumatoid arthritis(714.0) (HCC)- Primary Rheumatoid arthritis documented in this encounter Care Teams Pot Filler Relationship Specialty Start Date End Date Tomas Hyman MD [address] [facility] [address] [place] [address] PCP - General Family Medicine 12/31/13 05/09/18 Isidro Heredia MD Rheumatology 02/09/11 documented as of this encounter
--- OUTSIDE RECORDS SUMMARY | 2024-05-03 09:07 | XMS_ITS | Encounter Summary ---
Author Organization [facility] Address [address] [facility] [place] [address] Care Team Providers Care Senior Safety Management Consultant Name Role Phone Isidro Heredia MD Unavailable [phone] Tomas Hyman MD Primary Care Provider [phone] Encounter Details Date Type Department Care Team (Latest Contact Info) Description 04/14/2014 9:49 AM CONING MACHINE OPERATOR - 04/14/2014 11:59 PM CONING MACHINE OPERATOR Hospital Encounter [facility] Pain Care [address] [place] [address] [place] [address] [place] [phone] Discharge Disposition: Home or Self Care Social [...] Comments Blood Pressure 146/96 04/14/2014 10:33 AM CONING MACHINE OPERATOR Pulse 93 04/14/2014 10:33 AM CONING MACHINE OPERATOR Temperature - - Respiratory Rate 16 04/14/2014 10:33 AM CONING MACHINE OPERATOR Oxygen Saturation 98% 04/14/2014 10:33 AM CONING MACHINE OPERATOR Inhaled Oxygen Concentration - - Weight - - Height - - Body Mass Index - - documented in this encounter Discharge Instructions * Patient Instructions* Ashlie Henao RN - 04/14/2014 10:06 AM CONING MACHINE OPERATOR [facility] Procedure Center Pain Discharge Instructions [...] headache, or any other problems, please call [phone] or after hours callDr. Mirza at [phone] and tell them your physician's name. The exchange will alert the physician dairy consultant. If sedation is given: No sedation given. For Your Next Visit: No additional instructions. Other Instructions: May remove band-aid in 12 Hours. Return [place] 2 in 1 week. Patient Signature: Date: RN Signature: Date: NG MACHINE OPERATOR documented in this encounter Medications at Time of Discharge Medication Sig Dispensed Refills Start Date End Date Rhrqvkyubfn-Xtljtbyzy-Eg t C-Mn (GLUCOSAMINE CHONDR 1500 COMPLX PO) [...] 5-325 MG tabletIndications:Rheuma toid arthritis(714.0) ([facility]) Take 1 Tab by mouth every [...] Coumidin, Plavix or other blood thinners. Responsible port cdl a driver is not needed due to the [...] Follow Up: 1 week Alejandro Mirza MD NG MACHINE OPERATOR documented in this encounter Plan of Treatment Upcoming Encounters Date Type Department Care Team (Late st Contact Info) Description 06/03/2024 1:00 PM CONING MACHINE OPERATOR Appointment [facility] - Rheumatology [address] [place] [address] 06/03/2024 2:00 PM CONING MACHINE OPERATOR Office Visit [facility] - Rheumatology [address] [place] [address] Gloria Smith MD [address] [place] [phone] documented as of this encounter Procedures Procedure Name Priority Date/Time Associated Diagnosis Comments PAIN MANAGEMENT PROCEDURE TIME Routine 04/14/2014 10:24 AM CONING MACHINE OPERATOR Displacement Of Lumbar Intervertebral Disc Without Myelopathy Thoracic or lumbosacral neuritis or radiculitis, unspecified documented in this encounter Results * PAIN MANAGEMENT PROCEDURE TIME (04/14/2014 10:24 AM CONING MACHINE OPERATOR) Anatomical Region Laterality Modality X-Ray Angiograph y Narrative 04/14/2014 10:32 AM CONING MACHINE OPERATOR Alejandro Mirza MD ? 04/14/2014 10:32 AM [...] Coumidin, Plavix or other blood thinners. ??Responsible port cdl a driver is not needed due to the [...] on Coumidin, Plavix or other bloodthinners. Responsible port cdl a driver is not needed due to the patient not havingsedation. The patient was placed in a prone position and was prepped withChloraprep. Procedure: Lidocaine 1% was injected with a 25 gauge needle at S3qjvgfqkik placement with the guided fluoroscopy. An 18 [...] Admin. by Other Provider 04/14/2014 10:16 AM CONING MACHINE OPERATOR 80 mg documented in this encounter Care Teams Senior Safety Management Consultant Relationship Specialty Start Date End Date Tomas Hyman MD [address] [place] [address] PCP - General Family Medicine 12/31/13 05/09/18 Isidro Heredia MD Rheumatology 02/09/11 documented as of this encounter
--- OUTSIDE RECORDS SUMMARY | 2024-05-03 09:07 | XMS_ITS | Encounter Summary ---
Author Organization [facility] Address [address] [facility] [place] [address] Care Team Providers Care Can Piler Name Role Phone Isidro Heredia MD Unavailable [phone] Tomas Hyman MD Primary Care Provider [phone] Reason for Visit * Treatment (Routine) - Closed Specialty Diagnoses / Procedures Referred By Lawrence shah Referred To Contact Infusion Therapy Nurse Diagnoses Rheumatoid arthritis(714.0) ([facility]) Procedures [place] INJECTION TOCILIZUMAB 1 MG Isidro Heredia MD [address] [place] [address] [phone] Referral ID Status Reason Start Date Expiration Date Visits Re quested Visits Authorized [id number] Closed 05/08/2014 10/05/2014 1 6 Encounter Details Date Type Department Care Team (Late st Contact Info) Description 08/12/2014 10:23 AM CDT - 08/12/2014 11:59 PM CDT Hospital Encounter [facility] Medical [facility] - Rheumatology [address] [place] [address] Isidro Heredia MD [address] [facility] [address] Discharge Disposition: Home or Self [...] Sierra RN - 08/12/2014 10:[address] Rheumatology Post Infusion instructions [...] Sunday through 01-02 call the office at [phone] After hours or on the weekend call the exchange at [phone] If you have had lab work done [...] have chosen [facility] as your provider. Manisha Sierra RN documented in this encounter Medications at Time of Discharge Medication Sig Dispensed Refills Start Date End Date Gumtozrwwzr-Akooooyds-Ol t C-Mn (GLUCOSAMINE CHONDR 1500 COMPLX PO) [...] infusion 800mg Actemra/100cc0.9%norm al saline, per nasir vAila's office practice of Actemra 8mg/kg over 60 minutes and the Actemra schedule; first dose, then every 4 weeks thereafter, unless further orders received from . Exp 09/04/2014 09/04/2013 09/04/2014 documented as of this encounter Progress Notes * Manisha Sierra, RN - 08/12/2014 10:48 AM CDT JOSE Deng [id number] 08/12/2014 Diagnosis: Rheumatoid arthritis [714.0]. Patient questionnaire [...] st Contact Info) Description 06/03/2024 1:00 PM HOME CARE CHAPLAIN Appointment [facility] - Rheumatology [address] [place] [address] [phone] 06/03/2024 2:00 PM HOME CARE CHAPLAIN Office Visit [facility] - Rheumatology [address] [place] [address] Gloria Smith MD [address] [place] [phone] documented as of this encounter Visit Diagnoses Diagnosis Rheumatoid arthritis(714.0) ([facility]) Rheumatoid arthritis documented in this encounter Administered Medications Inactive Administered Medications - up to 3 most recent administrations Medication Order MAR Action Action Date Dose Rate Site Tocilizumab 800 mg in 0.9% NaCl IVPB 800 mg, at 140 mL/hr, Intravenous, ONCE, 1 dose, On Sun08/12/14 at 1030, 2 vials used of Actemra 400MG [facility] 28600-213-54 with 0 WASTE $ Given 08/12/2014 10:47 AM CDT 800 mg 140 mL/hr documented in this encounter Care Teams Can Piler Relationship Specialty Start Date End Date Tomas Hyman MD [address] [facility] [address] [place] [address] PCP - General Family Medicine 12/31/13 05/09/18 Isidro Heredia MD Rheumatology 02/09/11 documented as of this encounter
--- OUTSIDE RECORDS SUMMARY | 2024-05-03 09:07 | XMS_ITS | Encounter Summary ---
Author Organization [facility] Address [address] [facility] [place] [address] Care Team Providers Care Yardage Tufting Machine Operator Name Role Phone Isidro Heredia MD Unavailable [phone] Tomas Hyman MD Primary Care Provider Reason for Visit * Oncology Prior Authorization - Closed Specialty Diagnoses / Procedures Referred By Contsarahi t Referred To Contact Infusion Therapy Nurse Diagnoses Rheumatoid arthritis(714.0) ([facility]) Procedures [place] INJECTION TOCILIZUMAB 1 MG Isidro Heredia MD [address] [place] [address] [address] Referral ID Status Reason Start Date Expiration Date Visits Re quested Visits Authorized [id number] Closed 05/01/2013 04/29/2014 1 12 Encounter Details Date Type Department Care Team (Late st Contact Info) Description 04/10/2014 12:17 PM STEAM TABLE ATTENDANT - 04/10/2014 11:59 PM STEAM TABLE ATTENDANT Hospital Encounter [facility] Medical [facility] - Rheumatology [address] [place] [address] Isidro Heredia MD [address] [place] [address] Discharge Disposition: Home or Self [...] Comments Blood Pressure 149/87 04/10/2014 1:42 PM STEAM TABLE ATTENDANT Pulse 112 04/10/2014 1:42 PM STEAM TABLE ATTENDANT Temperature 37.2 ??C (98.9 ??F) 04/10/2014 1:42 PM CS T Respiratory Rate 18 04/10/2014 1:42 PM STEAM TABLE ATTENDANT Oxygen Saturation - - Inhaled Oxygen Concentration - - Weight - - Height - - Body Mass Index - - documented in this encounter Discharge Instructions * Discharge Instructions* Magnolia Pruett RN - 04/10/2014 1:52 PM STEAM TABLE ATTENDANT [place] Rheumatology Post Infusion instructions You have [...] through Sunday 9-5 call the office at [phone] After hours or on the weekend call the exchange at [phone] If you have had lab work done [...] [facility] as your provider. Magnolia Pruett, RN M TABLE ATTENDANT documented in this encounter Medications at Time of Discharge Medication Sig Dispensed Refills Start Date End Date Xbbhuvuudis-Nmhnsgweo-My t C-Mn (GLUCOSAMINE CHONDR 1500 COMPLX PO) [...] 5-325 MG tabletIndications:Rheuma toid arthritis(714.0) ([facility]) Take 1 Tab by mouth [...] 04/10/2014 1:53 PM CST JOSE Chalino Deng [id number] 04/10/2014 Diagnosis: Rheumatoid arthritis [714.0]. Pt denies symptoms of infection or antibiotic use, no open wounds, or recent surgery, or plans for surgery in the next couple of weeks. Pt is aware that we use the 0-10 pain scale to assess discomfort. 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 desk reporter pt signs consent for treatment for this infusion. BP 149/87 Pulse 112 Temp(Src) 98.9 ??F Resp 18 @ MEDICATIONS FOR CURRENT ENCOUNTER: ?? SCHEDULED MEDICATIONS: ?? Tocilizumab 800 mg in 0.9% NaCl IVPB, Intravenous, Once ?? Number of 24 gauge 1 inch placed in Right hand ?? 1 attempt(s). Patient monitored throughout procedure. Tolerated well? Yes Next treatment? 4 wks Magnolia Pruett RN M TABLE ATTENDANT documented in this encounter Plan of Treatment Upcoming Encounters Date Type Department Care Team (Late st Contact Info) Description 06/03/2024 1:00 PM STEAM TABLE ATTENDANT Appointment [facility] - Rheumatology [address] [place] [address] 06/03/2024 2:00 PM STEAM TABLE ATTENDANT Office Visit [facility] - Rheumatology [address] [place] [address] Gloria Smith MD [address] [place] [id number] documented as of this encounter Visit Diagnoses [...] 1230, 2 vials used of Actemra 400MG [facility] N[facility]ED [facility] 02526-984-19 with 0 WASTE $ Given 04/10/2014 1:51 PM STEAM TABLE ATTENDANT 800 mg 140 m L/hr documented in this encounter Care Teams Yardage Tufting Machine Operator Relationship Specialty Start Date End Date Tomas Hyman MD [address] [place] [address] PCP - General Family Medicine 12/31/13 05/09/18 Isidro Heredia MD Rheumatology 02/09/11 documented as of this encounter
--- OUTSIDE RECORDS SUMMARY | 2024-05-03 09:07 | XMS_ITS | Encounter Summary ---
Author Organization [facility] Address [address] [facility] [place] [address] Care Team Providers Care Duplicating Machine Mechanic Name Role Phone Isidro Heredia MD Unavailable [phone] Tomas Hyman MD Primary Care Provider [phone] Reason for Visit * Treatment (Routine) - Closed Specialty Diagnoses / Procedures Referred By Lawrence shah Referred To Contact Infusion Therapy Nurse Diagnoses Rheumatoid arthritis(714.0) ([facility]) Procedures [place] INJECTION TOCILIZUMAB 1 MG Isidro Heredia MD [address] [place] [address] [address] Referral ID Status Reason Start Date Expiration Date Visits Re quested Visits Authorized [id number] Closed 05/08/2014 10/05/2014 1 6 Encounter Details Date Type Department Care Team (Late st Contact Info) Description 05/11/2014 8:58 AM COMMISSARY STEWARD - 05/11/2014 11:59 PM COMMISSARY STEWARD Hospital Encounter [facility] Medical [facility] - Rheumatology [address] [place] [address] Isidro Heredia MD [address] [place] [address] Discharge Disposition: Home or Self [...] Comments Blood Pressure 165/100 05/11/2014 9:22 AM COMMISSARY STEWARD Pulse 84 05/11/2014 9:22 AM COMMISSARY STEWARD Temperature 36.9 ??C (98.5 ??F) 05/11/2014 9:22 AM CS T Respiratory Rate 16 05/11/2014 9:22 AM COMMISSARY STEWARD Oxygen Saturation - - Inhaled Oxygen Concentration - - Weight 117.9 kg (260 lb) 05/11/2014 9:22 AM COMMISSARY STEWARD Height 177.8 cm (5' 10 ) 05/11/2014 9:22 AM COMMISSARY STEWARD Body Mass Index 37.31 05/11/2014 9:22 AM COMMISSARY STEWARD documented in this encounter Discharge Instructions * Discharge Instructions* Mirela Rodrigez RN - 05/11/2014 9:38 AM COMMISSARY STEWARD [place] Rheumatology Post Infusion instructions You have [...] Sunday through 01-02 call the office at [phone] After hours or on the weekend call the exchange at [phone] If you have had lab work done [...] chosen [facility] as your provider. Mirela Rodrigez RN ISSARY STEWARD documented in this encounter Medications at Time of Discharge Medication Sig Dispensed Refills Start Date End Date Srbttdisnst-Zfipiweou-Ie t C-Mn (GLUCOSAMINE CHONDR 1500 COMPLX PO) [...] the plan and thankedme for my concern. ISSARY STEWARD * Mirela Rodrigez RN - 05/11/2014 9:34 AM CST JOSE Deng [id number] 05/11/2014 Pt denies symptoms of infection or [...] Next treatment? 4 weeks Mirela Rodrigez RN ISSARY STEWARD documented in this encounter Plan of Treatment Upcoming Encounters Date Type Department Care Team (Late st Contact Info) Description 06/03/2024 1:00 PM COMMISSARY STEWARD Appointment [facility] - Rheumatology [address] [place] [address] 06/03/2024 2:00 PM COMMISSARY STEWARD Office Visit [facility] - Rheumatology [address] [place] [address] Gloria Smith MD [address] [place] [phone] documented as of this encounter Visit [...] 0830, 2 vials used of Actemra 400MG [facility] 79834-695-20 with 0 WASTE $ Given 05/11/2014 9:32 AM COMMISSARY STEWARD 800 mg 140 m L/hr documented in this encounter Care Teams Duplicating Machine Mechanic Relationship Specialty Start Date End Date Tomas Hyman MD [address] [facility] [address] [place] [address] PCP - General Family Medicine 12/31/13 05/09/18 Isidro Heredia MD Rheumatology 02/09/11 documented as of this encounter
--- OUTSIDE RECORDS SUMMARY | 2024-05-03 09:07 | XMS_ITS | Encounter Summary ---
Author Organization [facility] Address [address] [facility] [place] [address] Care Team Providers Care Aperture Mask Etcher Name Role Phone Isidro Heredia MD Unavailable [phone] Tomas Hyman MD Primary Care Provider [phone] Reason for Visit * Reason Comments Low Back Pain * Evaluate & Treat (Routine) - Closed Specialty Diagnoses / Procedures Referred By Contsarahi t Referred To Contact Neurological Surgery Diagnoses LBP (low back pain) Procedures [place] OFFICE/OUTPT VISIT,JULITO LOPEZ II, Jason E, MD [address] [place] [address] Shade Yao MD [address] [place] [address] Referral ID Status Reason Start Date Expiration Date Visits Re quested Visits Authorized [id number] Closed 06/08/2014 06/08/2015 5 5 Encounter Details Date Type Department Care Team (Latest Contact Info) Description 07/13/2014 11:45 AM CDT Office Visit [facility] [employer] [facility] [address] [place] [address] [place] [address] Shade Yao MD [address] [place] [phone] Lumbago (Primary Dx); Degeneration of lumbar [...] Pinky Aleman - 07/14/2014 8:21 AM CDT [id number] to [id number] - [facility] doesn't accept consults * Shade Yao MD [...] st Contact Info) Description 06/03/2024 1:00 PM LEAD MANUFACTURING ENGINEERING TECH Appointment [facility] - Rheumatology [address] [place] [address] 06/03/2024 2:00 PM LEAD MANUFACTURING ENGINEERING TECH Office Visit [facility] - Rheumatology [address] [place] [address] Gloria Smith MD [address] [place] [phone] documented as of this encounter Visit Diagnoses Diagnosis Lumbago- Primary Degeneration of lumbar or lumbosacral intervertebral disc documented in this encounter Care Teams Aperture Mask Etcher Relationship Specialty Start Date End Date Tomas Hyman MD [address] [place] [address] PCP - General Family Medicine 12/31/13 05/09/18 Isidro Heredia MD Rheumatology 02/09/11 documented as of this encounter
--- OUTSIDE RECORDS SUMMARY | 2024-05-03 09:07 | XMS_ITS | Encounter Summary ---
Author Organization [facility] Address [address] [place] [address] Care Team Providers Care Press Shop Supervisor Name Role Phone Isidro Heredia MD Unavailable [phone] Tomas Hyman MD Primary Care Provider [phone] Reason for Visit * Reason Comments Lower Extremity Problem right * Evaluate & Treat (Routine) - Closed Specialty Diagnoses / Procedures Referred By Lawrence shah Referred To Contact Diagnoses Lumbago Rheumatoid arthritis(714.0) ([facility]) Procedures AMB CONSULT TO ORTHOPEDIC SURGERY [place] OFFICE/OUTPT VISIT,EST,Tomas Murguia MD [address] [place] [address] [place] [address] [address] Referral ID Status Reason Start Date Expiration Date Visits Re quested Visits Authorized [id number] Closed 03/11/2014 03/11/2015 6 6 Encounter Details Date Type Department Care Team (Late st Contact Info) Description 03/23/2014 9:00 AM PAVING INSPECTOR Office Visit [facility] [address] [place] [address]. [place] [address] [place] [address] [facility] [address] [place] [address] Thoracic or lumbosacral neuritis or [...] 117.9 kg (260 lb) 03/23/2014 9:18 AM PAVING INSPECTOR Height 177.8 cm (5' 10 ) 03/23/2014 9:18 AM PAVING INSPECTOR Body Mass Index 37.31 03/23/2014 9:18 AM PAVING INSPECTOR documented in this encounter Patient Instructions * Patient Instructions* Selvin Stern MD - 03/23/2014 10:12 AM PAVING INSPECTOR F/U with . NG INSPECTOR documented in this encounter Progress Notes * Selvin Stern MD - 03/23/2014 10:12 AM CST Please see dictated clinic note. NG INSPECTOR * Hali Figueroa - 03/23/2014 9:18 AM CST EMG RLE Pain scale 7/10 NG INSPECTOR documented in this encounter H&P Notes * Selvin Stern MD - 03/25/2014 12:11 AM CST DATE OF SERVICE: 03/23/2014 LOCATION: [facility] [address] HISTORY: Mr. Deng is seen [...] exhaustion. 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 He lives with his family. He denies [...] Selvin Boateng M.D. Electronically Signed 03/25/2014 08:17:12 [facility]/MedQ #: [id number] cc: Catina Rosa M.D. NG INSPECTOR * Selvin Stern MD - 03/24/2014 11:41 PM CST DATE OF SERVICE: 03/23/2014 LOCATION: [facility] 120 EMG STUDY: EXAMINING PHYSICIAN: Selvin Boateng [...] M.D. Electronically Signed 03/25/2014 08:17:17 [facility]/MedQ #: [id number] NG INSPECTOR documented in this encounter Plan of Treatment Upcoming Encounters Date Type Department Care Team (Late st Contact Info) Description 06/03/2024 1:00 PM PAVING INSPECTOR Appointment [facility] - Rheumatology [address] [place] [address] [phone] 06/03/2024 2:00 PM PAVING INSPECTOR Office Visit [facility] - Rheumatology [address] [place] [address] [phone] Gloria Smith MD [address] [place] [phone] documented as of this encounter Visit Diagnoses Diagnosis Thoracic or lumbosacral neuritis or radiculitis, unspecified- Primary documented in this encounter Care Teams Press Shop Supervisor Relationship Specialty Start Date End Date Tomas Hyman MD [address] [facility] [address] [place] [address] PCP - General Family Medicine 12/31/13 05/09/18 Isidro Heredia MD Rheumatology 02/09/11 documented as of this encounter
--- OUTSIDE RECORDS SUMMARY | 2024-05-03 09:07 | XMS_ITS | Encounter Summary ---
Author Organization [facility] Address [address] [facility] [place] [address] Care Team Providers Care Casting Room Helper Name Role Phone Isidro Heredia MD Unavailable [phone] Tomas Hyman MD Primary Care Provider Reason for Visit * Reason Onset Date Comments Forms 07/27/2014 Encounter Details Date Type Department Care Team (Late st Contact Info) Description 07/27/2014 Telephone [facility] - Family Medicine [address] [place] [address] [phone] Isidro Heredia MD [address] [place] [address] Forms Social History Tobacco Use Types [...] to know about the forms for his jail he turned in 7 weeks ago and his work is asking him about it documented in this encounter Plan of Treatment Upcoming Encounters Date Type Department Care Team (Late st Contact Info) Description 06/03/2024 1:00 PM SKI BINDING FITTER AND REPAIRER Appointment [facility] - Rheumatology [address] [place] [address] 06/03/2024 2:00 PM SKI BINDING FITTER AND REPAIRER Office Visit [facility] - Rheumatology [address] [place] [address] Gloria Smith MD [address] [place] [phone] documented as of this encounter Visit Diagnoses Not on filedocumented in this encounter Care Teams Casting Room Helper Relationship Specialty Start Date End Date Tomas Hyman MD [address] [facility] [address] [place] [address] PCP - General Family Medicine 12/31/13 05/09/18 Isidro Heredia MD Rheumatology 02/09/11 documented as of this encounter
--- OUTSIDE RECORDS SUMMARY | 2024-05-03 09:07 | XMS_ITS | Encounter Summary ---
Author Organization [facility] Address [address] [place] [address] Care Team Providers Care Mop Handle Assembler Name Role Phone Isidro Heredia MD Unavailable Tomas Hyman MD Primary Care Provider [phone] Reason for Visit * Reason Onset Date Comments Follow-up 07/07/2014 Encounter Details Date Type Department Care Team (Late st Contact Info) Description 07/07/2014 Telephone [facility] - Rheumatology [address] [place] [address] Isidro Heredia MD [address] [place] [address] Follow-up Social History Tobacco Use Types [...] Contact Info) Description 06/03/2024 1:00 PM RETAIL STORE CLERK Appointment [facility] - Rheumatology [address] [place] [address] 06/03/2024 2:00 PM RETAIL STORE CLERK Office Visit [facility] - Rheumatology [address] [place] [address] Gloria Smith MD [address] [place] [phone] documented as of this encounter Visit Diagnoses Not on filedocumented in this encounter Care Teams Mop Handle Assembler Relationship Specialty Start Date End Date Tomas Hyman MD [address] [place] [address] PCP - General Family Medicine 12/31/13 05/09/18 Isidro Heredia MD Rheumatology 02/09/11 documented as of this encounter
--- OUTSIDE RECORDS SUMMARY | 2024-05-03 09:07 | XMS_ITS | Encounter Summary ---
Author Organization [facility] Address [address] [facility] [place] [address] Care Team Providers Care Tube Cutter Operator Name Role Phone Isidro Heredia MD Unavailable [phone] Tomas Hyman MD Primary Care Provider [phone] Encounter Details Date Type Department Care Team (Latest Contact Info) Description 03/24/2014 10:24 AM MANAGER INPATIENT - 03/24/2014 11:59 PM MANAGER INPATIENT Hospital Encounter [facility] Pain Care [address] [place] [address] [place] [address] [place] [phone] Discharge Disposition: Home or Self Care Social [...] Comments Blood Pressure 150/88 03/24/2014 11:20 AM MANAGER INPATIENT Pulse 97 03/24/2014 11:20 AM MANAGER INPATIENT Temperature - - Respiratory Rate 16 03/24/2014 11:20 AM MANAGER INPATIENT Oxygen Saturation 97% 03/24/2014 11:20 AM MANAGER INPATIENT Inhaled Oxygen Concentration - - Weight - - Height - - Body Mass Index - - documented in this encounter Discharge Instructions * Patient Instructions* Nena Pond RN - 03/24/2014 10:39 AM MANAGER INPATIENT [facility] Procedure Center Pain Discharge [...] headache, or any other problems, please call [phone] or after hours callDr. Mirza at [phone] and tell them your physician's name. The exchange will alert the physician merchandise presentation manager. If sedation is given: No sedation given. For Your Next Visit: No additional instructions. Other Instructions: May remove band-aid in 12 Hours. Return in two weeks for follow up. Patient Signature: Date: RN Signature: Date: GER INPATIENT documented in this encounter Medications at Time of Discharge Medication Sig Dispensed Refills Start Date End Date Rapeovkndch-Ytekylwov-Nr t C-Mn (GLUCOSAMINE CHONDR 1500 COMPLX PO) [...] oxyCODONE-acetaminophen (PERCOCET) 5-325 MG tabletIndications:Rheuma toid arthritis(714.0) ([facility]) Take 1 Tab by mouth every [...] identified, and marked by Dr. Mirza. Responsible flag car driver is not needed due to [...] Add Levels Lumb/Sac, Fluoro. Alejandro Mirza MD GER INPATIENT documented in this encounter Plan of Treatment Upcoming Encounters Date Type Department Care Team (Late st Contact Info) Description 06/03/2024 1:00 PM MANAGER INPATIENT Appointment [facility] - Rheumatology [address] [place] [address] [phone] 06/03/2024 2:00 PM MANAGER INPATIENT Office Visit [facility] - Rheumatology [address] [place] [address] Gloria Smith MD [address] [place] [phone] documented as of this encounter Procedures Procedure Name Priority Date/Time Associated Diagnosis Comments PAIN MANAGEMENT PROCEDURE TIME Routine 03/24/2014 11:17 AM MANAGER INPATIENT Displacement Of Lumbar Intervertebral Disc Without Myelopathy Thoracic or lumbosacral neuritis or radiculitis, unspecified documented in this encounter Results * PAIN MANAGEMENT PROCEDURE TIME (03/24/2014 11:17 AM MANAGER INPATIENT) Anatomical Region Laterality Modality X-Ray Angiograph y Narrative 03/24/2014 11:38 AM MANAGER INPATIENT Alejandro Mirza MD ? 03/24/2014 11:38 AM [...] identified, and marked by Dr. Mirza. ??Responsible flag car driver is not needed due to [...] Admin. by Other Provider 03/24/2014 11:03 AM MANAGER INPATIENT 10 mg documented in this encounter Care Teams Tube Cutter Operator Relationship Specialty Start Date End Date Tomas Hyman MD [address] [facility] [address] [place] [address] PCP - General Family Medicine 12/31/13 05/09/18 Isidro Heredia MD Rheumatology 02/09/11 documented as of this encounter
--- OUTSIDE RECORDS SUMMARY | 2024-05-03 09:07 | XMS_ITS | Encounter Summary ---
Author Organization [facility] Address [address] [place] [address] Care Team Providers Care Commodity Merchant Name Role Phone Isidro Heredia MD Unavailable [phone] Tomas Hyman MD Primary Care Provider [phone] Reason for Visit * Treatment (Routine) - Closed Specialty Diagnoses / Procedures Referred By Contsarahi t Referred To Contact Pain Management Diagnoses Displacement of lumbar intervertebral disc without myelopathy Thoracic or lumbosacral neuritis or radiculitis, unspecified Procedures NJ INJ,FORAMEN,L/S,1 LEVEL [place] INJ,FORAMEN,L/S,[place] [address] [address] [facility] Pain Care [address] [place] [address] Referral ID Status Reason Start Date Expiration Date Visits Re quested Visits Authorized [id number] Closed 03/10/2014 09/06/2014 6 6 Encounter Details Date Type Department Care Team (Latest Contact Info) Description 03/24/2014 10:15 AM BANK NOTE DESIGNER - 03/24/2014 10:23 AM [facility] Hospital Encounter [facility] Pain Care [address] [place] [address] [place] [address] [place] [phone] Discharge Disposition: Home or Self Care Social [...] Sig Dispensed Refills Start Date End Date Ljxxbcwqjcs-Ssrqyngmm-Wj t C-Mn (GLUCOSAMINE CHONDR 1500 COMPLX PO) [...] oxyCODONE-acetaminophen (PERCOCET) 5-325 MG tabletIndications:Rheuma toid arthritis(714.0) ([facility]) Take 1 Tab by mouth [...] st Contact Info) Description 06/03/2024 1:00 PM BANK NOTE DESIGNER Appointment [facility] - Rheumatology [address] [place] [address] [phone] 06/03/2024 2:00 PM BANK NOTE DESIGNER Office Visit [facility] - Rheumatology [address] [place] [address] [phone] Gloria Smith MD [address] [place] [phone] documented as of this encounter Visit Diagnoses Not on filedocumented in this encounter Care Teams Commodity Merchant Relationship Specialty Start Date End Date Tomas Hyman MD [address] [facility] [address] [place] [address] PCP - General Family Medicine 12/31/13 05/09/18 Isidro Heredia MD Rheumatology 02/09/11 documented as of this encounter
--- OUTSIDE RECORDS SUMMARY | 2024-05-03 09:07 | XMS_ITS | Encounter Summary ---
Author Organization [facility] Address [address] [facility] [place] [address] Care Team Providers Care Precision Devices Inspector/Tester Name Role Phone Isidro Heredia MD Unavailable Tomas Hyman MD Primary Care Provider Reason for Visit * Reason Comments Rheumatoid Arthritis * Evaluate & Treat (Routine) - Closed Specialty Diagnoses / Procedures Referred By Lawrence shah Referred To Contact Diagnoses Rheumatoid arthritis(714.0) (HCC) Procedures CT OFFICE VISIT DURING HOURS Tomas Hyman MD [address] [facility] [address] [place] [address] Isidro Heredia MD [address] [place] [address] Referral ID Status Reason Start Date Expiration Date Visits Re quested Visits Authorized [id number] Closed 02/10/2014 02/10/2015 6 6 Encounter Details Date Type Department Care Team (Late st Contact Info) Description 04/10/2014 12:15 PM DATABASE ANALYST Office Visit [facility] Medical [facility] - Rheumatology [address] [place] [address] Isidro Heredia MD [address] [place] [address] Rheumatoid arthritis (HCC) (Primary Dx); Chronic [...] Comments Blood Pressure 149/87 04/10/2014 1:53 PM DATABASE ANALYST Pulse 112 04/10/2014 1:53 PM DATABASE ANALYST Temperature - - Respiratory Rate - - Oxygen Saturation - - Inhaled Oxygen Concentration - - Weight 117.9 kg (260 lb) 04/10/2014 1:53 PM DATABASE ANALYST Height - - Body Mass Index 37.31 03/23/2014 9:18 AM DATABASE ANALYST documented in this encounter Progress Notes * [...] PO) Take by mouth once daily. ??? Qvqhknzcygh-Fdqnpuuyg-Ybf C-Mn (GLUCOSAMINE CHONDR 1500 COMPLX PO) Take [...] Follow up in office in 4 weeks BASE ANALYST documented in this encounter Plan of Treatment Upcoming Encounters Date Type Department Care Team (Late st Contact Info) Description 06/03/2024 1:00 PM DATABASE ANALYST Appointment [facility] - Rheumatology [address] [place] [address] [phone] 06/03/2024 2:00 PM DATABASE ANALYST Office Visit [facility] - Rheumatology [address] [place] [address] Gloria Smith MD [address] [place] [phone] documented as of this encounter Visit Diagnoses Diagnosis Rheumatoid arthritis(714.0) ([facility])- Primary Rheumatoid arthritis Chronic pain syndrome documented in this encounter Care Teams Precision Devices Inspector/Tester Relationship Specialty Start Date End Date Tomas Hyman MD [address] [place] [address] PCP - General Family Medicine 12/31/13 05/09/18 Isidro Heredia MD Rheumatology 02/09/11 documented as of this encounter
--- OUTSIDE RECORDS SUMMARY | 2024-05-03 09:07 | XMS_ITS | Encounter Summary ---
Author Organization [facility] Address [address] [facility] [place] [address] Care Team Providers Care Mannequin Refinisher Name Role Phone Isidro Heredia MD Unavailable [phone] Tomas Hyman MD Primary Care Provider [phone] Reason for Visit * Treatment (Routine) - Closed Specialty Diagnoses / Procedures Referred By Lawrence shah Referred To Contact Infusion Therapy Nurse Diagnoses Rheumatoid arthritis(714.0) ([facility]) Procedures CT INJECTION TOCILIZUMAB 1 MG Isidro Heredia MD [address] [place] [address] [address] Referral ID Status Reason Start Date Expiration Date Visits Re quested Visits Authorized [id number] Closed 05/08/2014 10/05/2014 1 6 Encounter Details Date Type Department Care Team (Late st Contact Info) Description 06/08/2014 3:53 PM INVESTIGATION SPECIALIST - 06/08/2014 11:59 PM INVESTIGATION SPECIALIST Hospital Encounter [facility] Medical [facility] - Rheumatology [address] [place] [address] Isidro Heredia MD [address] [place] [address] Discharge Disposition: Home or Self [...] Comments Blood Pressure 141/94 06/08/2014 4:15 PM INVESTIGATION SPECIALIST Pulse 107 06/08/2014 4:15 PM INVESTIGATION SPECIALIST Temperature 36.8 ??C (98.2 ??F) 06/08/2014 4:15 PM CS T Respiratory Rate 16 06/08/2014 4:15 PM INVESTIGATION SPECIALIST Oxygen Saturation - - Inhaled Oxygen Concentration - - Weight - - Height - - Body Mass Index - - documented in this encounter Discharge Instructions * Discharge Instructions* Carlos Foreman RN - 06/08/2014 4:59 PM INVESTIGATION SPECIALIST [place] Rheumatology Post Infusion instructions You have [...] through Sunday 9-5 call the office at [phone] After hours or on the weekend call the exchange at [phone] If you have had lab work done [...] Center as your provider. Carlos Foreman RN STIGATION SPECIALIST documented in this encounter Medications at Time of Discharge Medication Sig Dispensed Refills Start Date End Date Asqeyroqaxh-Phcbiaspp-Gk t C-Mn (GLUCOSAMINE CHONDR 1500 COMPLX PO) [...] 0.9% NaCl 0.9 % 100 mLIndications:Rheumatoid arthritis(714.0) ([facility]) Pt to receive IV infusion 800mg [...] - 06/08/2014 5:11 PM CST JOSE Deng [id number] 06/08/2014 Diagnosis: Rheumatoid arthritis [714.0]. Patient questionnaire [...] Yes Next treatment? 4wk Carlos Foreman RN STIGATION SPECIALIST documented in this encounter Plan of Treatment Upcoming Encounters Date Type Department Care Team (Late st Contact Info) Description 06/03/2024 1:00 PM INVESTIGATION SPECIALIST Appointment [facility] - Rheumatology [address] [place] [address] 06/03/2024 2:00 PM INVESTIGATION SPECIALIST Office Visit [facility] - Rheumatology [address] [place] [address] Gloria Smith MD [address] [place] [phone] documented as of this encounter Visit Diagnoses [...] 1345, 2 vials used of Actemra 400MG [facility] 13390-372-12 with 0 WASTE $ Given 06/08/2014 4:10 PM INVESTIGATION SPECIALIST 800 mg 140 m L/hr documented in this encounter Care Teams Mannequin Refinisher Relationship Specialty Start Date End Date Tomas Hyman MD [address] [place] [address] PCP - General Family Medicine 12/31/13 05/09/18 Isidro Heredia MD Rheumatology 02/09/11 documented as of this encounter
--- OUTSIDE RECORDS SUMMARY | 2024-05-03 09:08 | XMS_ITS | Encounter Summary ---
Author Organization [facility] Address [address] [facility] [place] [address] Care Team Providers Care Gis Scientist Name Role Phone Nolberto Nicole MD Primary Care Provider Isidro Heredia MD Unavailable [phone] Reason for Visit * Reason Comments Rheumatoid Arthritis * Consult, Test & Treat (Routine) - Closed Specialty Diagnoses / Procedures Referred By Contsarahi t Referred To Contact Diagnoses Rheumatoid arthritis(714.0) (HCC) Procedures [place] OFFICE VISIT DURING HOURS Nolberto Nicole MD [address] [place] [address] Isidro Heredia MD [address] [place] [address] Referral ID Status Reason Start Date Expiration Date Visits Re quested Visits Authorized [id number] Closed 03/14/2013 09/11/2013 1 6 Encounter Details Date Type Department Care Team (Late st Contact Info) Description 08/07/2013 2:30 PM CDT Office Visit [facility] Medical [facility] - Rheumatology [address] [place] [address] Isidro Heredia MD [address] [place] [address] Rheumatoid arthritis (HCC) (Primary Dx); [...] PO) Take by mouth once daily. ??? Wgfjuluxubn-Hpzvsbgul-Nfj C-Mn (GLUCOSAMINE CHONDR 1500 COMPLX PO) Take [...] Contact Info) Description 06/03/2024 1:00 PM HAND PICKER Appointment [facility] - Rheumatology [address] [place] [address] 06/03/2024 2:00 PM HAND PICKER Office Visit [facility] - Rheumatology [address] [place] [address] [phone] Gloria Smith MD [address] [place] [phone] documented as of this encounter Visit Diagnoses Diagnosis Rheumatoid arthritis(714.0) (HCC)- Primary Rheumatoid arthritis Chronic pain syndrome documented in this encounter Care Teams Gis Scientist Relationship Specialty Start Date End Date Nolberto Nicole MD PCP - General 07/21/08 12/30/13 Isidro Heredia MD Rheumatology 02/09/11 documented as of this encounter
--- OUTSIDE RECORDS SUMMARY | 2024-05-03 09:08 | XMS_ITS | Encounter Summary ---
Author Organization [facility] Address [address] [place] [address] Care Team Providers Care Whiskey Proof Reader Name Role Phone Nolberto Nicole MD Primary Care Provider [phone] Isidro Heredia MD Unavailable [phone] Reason for Visit * Treatment (Routine) - Closed Specialty Diagnoses / Procedures Referred By Lawrence shah Referred To Contact Infusion Therapy Nurse Diagnoses Rheumatoid arthritis(714.0) ([facility]) Procedures [place] INJECTION TOCILIZUMAB 1 MG Isidro Heredia MD [address] [place] [address] Referral ID Status Reason Start Date Expiration Date Visits Re quested Visits Authorized [id number] Closed 05/01/2013 04/29/2014 1 12 Encounter Details Date Type Department Care Team (Late st Contact Info) Description 12/12/2013 8:50 AM CDT - 12/12/2013 11:59 PM CDT Hospital Encounter [facility] - Rheumatology [address] [place] [address] Isidro Heredia MD [address] [place] [address] Discharge Disposition: Home or Self [...] Sierra RN - 12/12/2013 9:29 AM CDT [place] Rheumatology Post Infusion instructions [...] Sunday through Sunday-5 call the office at [phone] After hours or on the weekend call the exchange at [phone] If you have had lab work done [...] [facility] as your provider. Manisha Sierra RN documented in this encounter Medications at Time of Discharge Medication Sig Dispensed Refills Start Date End Date Pplljrqxyng-Ryrzhwyox-Fe t C-Mn (GLUCOSAMINE CHONDR 1500 COMPLX PO) [...] oxyCODONE-acetaminophen (PERCOCET) 5-325 MG tabletIndications:Rheuma toid arthritis(714.0) ([facility]) Take 1 Tab by mouth every [...] - 12/12/2013 10:57 AM CDT JOSE Deng [id number] 12/12/2013 Diagnosis: Rheumatoid arthritis [714.0]. Patient questionnaire [...] st Contact Info) Description 06/03/2024 1:00 PM BUS AIDE Appointment [facility] - Rheumatology [address] [place] [address] 06/03/2024 2:00 PM BUS AIDE Office Visit [facility] - Rheumatology [address] [place] [address] Gloria Smith MD [address] [place] [phone] documented as of this encounter Visit [...] mL/hr documented in this encounter Care Teams Whiskey Proof Reader Relationship Specialty Start Date End Date Nolberto Nicole MD PCP - General 07/21/08 12/30/13 Isidro Heredia MD Rheumatology 02/09/11 documented as of this encounter
--- OUTSIDE RECORDS SUMMARY | 2024-05-03 09:08 | XMS_ITS | Encounter Summary ---
Author Organization [facility] Address [address] [place] [address] Care Team Providers Care Language Translator Name Role Phone Isidro Heredia MD Unavailable [phone] Tomas Hyman MD Primary Care Provider [phone] Reason for Visit * Radiology Services - Closed Specialty Diagnoses / Procedures Referred By Lawrence shah Referred To Contact Diagnoses Lumbar radiculopathy Procedures MRI SPINE LUMBAR NON CONTRAST MRI SPINE LUMBAR WITH AND WITHOUT CONTRAST Isidro Heredia MD [address] [facility] [place] [address] Referral ID Status Reason Start Date Expiration Date Visits Re quested Visits Authorized [id number] Closed 01/02/2014 07/01/2014 1 1 Encounter Details Date Type Department Care Team (Late st Contact Info) Description 01/02/2014 7:32 AM CDT - 01/02/2014 11:59 PM T Hospital Encounter [facility] Health Imaging Services - MRI [address] [place] [address] Isidro Heredia MD [address] [place], [place] [phone] Discharge Disposition: Home or Self Care Social [...] Sig Dispensed Refills Start Date End Date Buxwkenogsj-Hmcwaekjr-Qy t C-Mn (GLUCOSAMINE CHONDR 1500 COMPLX PO) [...] st Contact Info) Description 06/03/2024 1:00 PM ODD JOBS DAY WORKER Appointment [facility] - Rheumatology [address] [place] [address] 06/03/2024 2:00 PM ODD JOBS DAY WORKER Office Visit [facility] - Rheumatology [address] [place] [address] Gloria Smith MD [address] [place] [phone] documented as of this encounter Procedures Procedure [...] unspecified documented in this encounter Care Teams Language Translator Relationship Specialty Start Date End Date Tomas Hyman MD [address] [facility] [address] [place] [address] PCP - General Family Medicine 12/31/13 05/09/18 Isidro Heredia MD Rheumatology 02/09/11 documented as of this encounter
--- OUTSIDE RECORDS SUMMARY | 2024-05-03 09:08 | XMS_ITS | Encounter Summary ---
Author Organization [facility] Address [address] [facility] [place] [address] Care Team Providers Care Sample Patternmaker Name Role Phone Isidro Heredia MD Unavailable [phone] Tomas Hyman MD Primary Care Provider [phone] Reason for Visit * Treatment (Routine) - Closed Specialty Diagnoses / Procedures Referred By Lawrence shah Referred To Contact Infusion Therapy Nurse Diagnoses Rheumatoid arthritis(714.0) ([facility]) Procedures [place] INJECTION TOCILIZUMAB 1 MG Isidro Heredia MD [address] [place] [address] Referral ID Status Reason Start Date Expiration Date Visits Re quested Visits Authorized [id number] Closed 05/01/2013 04/29/2014 1 12 Encounter Details Date Type Department Care Team (Late st Contact Info) Description 01/14/2014 2:00 PM CDT - 01/14/2014 11:59 PM CDT Hospital Encounter [facility] - Rheumatology [address] [place] [address] Isidro Heredia MD [address] [place] [address] Discharge Disposition: Home or Self [...] Foreman, RN - 01/14/2014 2:34 PM CDT [place] Rheumatology Post Infusion instructions [...] through Sunday 9-5 call the office at [phone] After hours or on the weekend call the exchange at [phone] If you have had lab work done [...] Sig Dispensed Refills Start Date End Date Pkktuizlegg-Zcmimjbhs-Rf t C-Mn (GLUCOSAMINE CHONDR 1500 COMPLX PO) [...] 01/14/2014 2:42 PM CDT JOSE Chalino Deng [id number] 01/14/2014 Diagnosis: Rheumatoid arthritis [714.0]. Patient questionnaire [...] st Contact Info) Description 06/03/2024 1:00 PM STATISTICS PROFESSOR Appointment [facility] - Rheumatology [address] [place] [address] 06/03/2024 2:00 PM STATISTICS PROFESSOR Office Visit [facility] - Rheumatology [address] [place] [address] Gloria Smith MD [address] [place] [address] [facility] [place] [id number] documented as of this encounter Visit Diagnoses [...] 0800, 2 vials used of Actemra 400MG [facility] 06029-057-38 with 0 WASTE $ Given 01/14/2014 2:39 PM CDT 800 mg 100 m L/hr documented in this encounter Care Teams Sample Patternmaker Relationship Specialty Start Date End Date Tomas Hyman MD [address] [facility] [address] [place] [address] PCP - General Family Medicine 12/31/13 05/09/18 Isidro Heredia MD Rheumatology 02/09/11 documented as of this encounter
--- OUTSIDE RECORDS SUMMARY | 2024-05-03 09:08 | XMS_ITS | Encounter Summary ---
Author Organization [facility] Address [address] [facility] [place] [address] Care Team Providers Care Dismantler Name Role Phone Nolberto Nicole MD Primary Care Provider [phone] Isidro Heredia MD Unavailable [phone] Reason for Visit * Treatment (Routine) - Closed Specialty Diagnoses / Procedures Referred By Lawrence shah Referred To Contact Infusion Therapy Nurse Diagnoses Rheumatoid arthritis(714.0) ([facility]) Procedures [place] INJECTION TOCILIZUMAB 1 MG Isidro Heredia MD [address] [place] [address] Referral ID Status Reason Start Date Expiration Date Visits Re quested Visits Authorized [id number] Closed 05/01/2013 04/29/2014 1 12 Encounter Details Date Type Department Care Team (Late st Contact Info) Description 08/07/2013 1:28 PM CDT - 08/07/2013 11:59 PM CDT Hospital Encounter [facility] - Rheumatology [address] [place] [address] Isidro Heredia MD [address] [place] [address] Discharge Disposition: Home or Self [...] Marx RN - 08/07/2013 2:06 PM CDT [place] Rheumatology Post Infusion instructions [...] through Sunday 9-5 call the office at [phone] After hours or on the weekend call the exchange at [phone] If you have had lab work done [...] [facility] as your provider. Camryn Marx RN * Discharge Instructions* Document, Scanned - 08/20/2013 10:42 PM CDT documented in this encounter Medications at Time of Discharge Medication Sig Dispensed Refills Start Date End Date Nrkpegghjbg-Cnyxwkgmh-Tw t C-Mn (GLUCOSAMINE CHONDR 1500 COMPLX PO) [...] - 08/07/2013 2:09 PM CDT JOSE Deng [id number] 08/07/2013 Diagnosis: Rheumatoid arthritis [714.0]. BP 130/80 [...] Contact Info) Description 06/03/2024 1:00 PM MANUFACTURING ADVISOR Appointment [facility] - Rheumatology [address] [place] [address] [phone] 06/03/2024 2:00 PM MANUFACTURING ADVISOR Office Visit [facility] - Rheumatology [address] [place] [address] Gloria Smith MD [address] [place] [phone] documented as of this encounter Visit [...] mL/hr documented in this encounter Care Teams Dismantler Relationship Specialty Start Date End Date Nolberto Nicole MD PCP - General 07/21/08 12/30/13 Isidro Heredia MD Rheumatology 02/09/11 documented as of this encounter
--- OUTSIDE RECORDS SUMMARY | 2024-05-03 09:08 | XMS_ITS | Encounter Summary ---
Author Organization [facility] Address [address] [facility] [place] [address] Care Team Providers Care Geoscience Laboratory Technician Name Role Phone Isidro Doll MD Unavailable [phone] Tomas Hyman MD Primary Care Provider [phone] Reason for Visit * Reason Onset Date Comments Referral Request 02/17/2014 Encounter Details Date Type Department Care Team (Late st Contact Info) Description 02/17/2014 Telephone [facility] - Rheumatology [address] [place] [address] Isidro Doll MD [address] [place] [address] Referral Request Social History Tobacco Use [...] & will reschedule for 02/24/14. [facility] just need our office to call to get referral addressed for next weeks visit. * Telephone Encounter - Camille oTrrez MA - 02/19/2014 10:09 AM CDT He will have to reschedule his appointment if his PCP will not do the referral. Since we are the specialists, we will have to call [facility]. * Telephone Encounter - Hammad Rodriguez - [...] CDT SPECIALIST: dr christian phillips NPI(OPTIONAL): PHONE: [id number] FAX: [phone] DIAGNOSIS/CODE: eval for back and leg pain APPT DATE: 02/19/14 INSURANCE: [employer] ID #: [id number] documented in this encounter Plan of Treatment Upcoming Encounters Date Type Department Care Team (Late st Contact Info) Description 06/03/2024 1:00 PM CERTIFIED MASSAGE THERAPIST Appointment [facility] - Rheumatology [address] [place] [address] [phone] 06/03/2024 2:00 PM CERTIFIED MASSAGE THERAPIST Office Visit [facility] - Rheumatology [address] [place] [address] [phone] Gloria Smith MD [address] [place] [phone] documented as of this encounter Visit Diagnoses Not on filedocumented in this encounter Care Teams Geoscience Laboratory Technician Relationship Specialty Start Date End Date Tomas Hyman MD [address] [facility] [address] [place] [address] PCP - General Family Medicine 12/31/13 05/09/18 Isidro Doll MD Rheumatology 02/09/11 documented as of this encounter
--- OUTSIDE RECORDS SUMMARY | 2024-05-03 09:08 | XMS_ITS | Encounter Summary ---
Author Organization [facility] Address [address] [facility] [place] [address] Care Team Providers Care Well Logging Captain Mud Analysis Name Role Phone Nolberto Nicole MD Primary Care Provider Isidro Heredia MD Unavailable Reason for Visit * Reason Comments Rheumatoid Arthritis - FYI Actemera incr eased to 800 mg today due to joint pain Shoulder Pain obdulia. rt shoulder is worse * Consult, Test & Treat (Routine) - Closed Specialty Diagnoses / Procedures Referred By Contsarahi t Referred To Contact Diagnoses Rheumatoid arthritis(714.0) ([facility]) Procedures [place] OFFICE VISIT DURING HOURS Nolberto Nicole MD [address] [place] [address] Isidro Heredia MD [address] [place] [address] Referral ID Status Reason Start Date Expiration Date Visits Re quested Visits Authorized [id number] Closed 03/14/2013 09/11/2013 1 6 Encounter Details Date Type Department Care Team (Late st Contact Info) Description 09/04/2013 3:15 PM CDT [facility] - Rheumatology [address] [place] [address] Isidro Heredia MD [address] [place] [address] Rheumatoid arthritis (HCC) (Primary Dx); [...] PO) Take by mouth once daily. ??? Mxlprzdchzt-Llsaroogr-Orj C-Mn (GLUCOSAMINE CHONDR 1500 COMPLX PO) Take [...] st Contact Info) Description 06/03/2024 1:00 PM EQUESTRIAN TRAINER Appointment [facility] - Rheumatology [address] [place] [address] [phone] 06/03/2024 2:00 PM EQUESTRIAN TRAINER Office Visit [facility] - Rheumatology [address] [place] [address] Gloria Smith MD [address] [place] [address] [phone] Scheduled Orders Name Type Priority Associated Diagnoses Orde r Schedule TSH Lab Routine Fatigue Ordered: 09/04/2013 T4 TOTAL Lab Routine Fatigue Ordered: 09/04/2013 documented as of this encounter Visit Diagnoses Diagnosis Rheumatoid arthritis(714.0) ([facility])- Primary Rheumatoid arthritis Fatigue Other malaise and fatigue Chronic pain syndrome Subacromial bursitis Other specified disorders of rotator cuff syndrome of shoulder and allied disorders documented in this encounter Care Teams Well Logging Captain Mud Analysis Relationship Specialty Start Date End Date Nolberto Nicole MD PCP - General 07/21/08 12/30/13 Isidro Heredia MD Rheumatology 02/09/11 documented as of this encounter
--- OUTSIDE RECORDS SUMMARY | 2024-05-03 09:08 | XMS_ITS | Encounter Summary ---
Author Organization [facility] Address [address] [facility] [place] [address] Care Team Providers Care Spool Cleaner Name Role Phone Isidro Heredia MD Unavailable Tomas Hyman MD Primary Care Provider [phone] Reason for Visit * Oncology Prior Authorization - Closed Specialty Diagnoses / Procedures Referred By Contsarahi t Referred To Contact Infusion Therapy Nurse Diagnoses Rheumatoid arthritis(714.0) ([facility]) Procedures [place] INJECTION TOCILIZUMAB 1 MG Isidro Heredia MD [address] [place] [address] [address] Referral ID Status Reason Start Date Expiration Date Visits Re quested Visits Authorized [id number] Closed 05/01/2013 04/29/2014 1 12 Encounter Details Date Type Department Care Team (Late st Contact Info) Description 03/12/2014 12:57 PM LAUNDRY ROOM ATTENDANT - 03/12/2014 11:59 PM LAUNDRY ROOM ATTENDANT Hospital Encounter [facility] Medical [facility] - Rheumatology [address] [place] [address] Isidro Heredia MD [address] [place] [address] Discharge Disposition: Home or Self [...] Comments Blood Pressure 149/96 03/12/2014 1:44 PM LAUNDRY ROOM ATTENDANT Pulse 99 03/12/2014 1:44 PM LAUNDRY ROOM ATTENDANT Temperature 37.1 ??C (98.8 ??F) 03/12/2014 1:44 PM CS T Respiratory Rate 16 03/12/2014 1:44 PM LAUNDRY ROOM ATTENDANT Oxygen Saturation - - Inhaled Oxygen Concentration - - Weight - - Height 177.8 cm (5' 10 ) 03/12/2014 1:44 PM LAUNDRY ROOM ATTENDANT Body Mass Index - - documented in this encounter Discharge Instructions * Discharge Instructions* Carlos Foreman RN - 03/12/2014 1:42 PM LAUNDRY ROOM ATTENDANT DE Rheumatology Post Infusion instructions You have [...] through Sunday 9-5 call the office at [phone] After hours or on the weekend call the exchange at [phone] If you have had lab work done [...] Hospital as your provider. Carlos Foreman RN DRY ROOM ATTENDANT documented in this encounter Medications at Time of Discharge Medication Sig Dispensed Refills Start Date End Date Bwxqcmzjohb-Cqmitzdrx-Ox t C-Mn (GLUCOSAMINE CHONDR 1500 COMPLX PO) [...] - 03/12/2014 1:39 PM CST JOSE Deng [id number] 03/12/2014 Diagnosis: Rheumatoid arthritis [714.0]. Patient questionnaire [...] Yes Next treatment? 4wk Carlos Foreman RN DRY ROOM ATTENDANT documented in this encounter Plan of Treatment Upcoming Encounters Date Type Department Care Team (Late st Contact Info) Description 06/03/2024 1:00 PM LAUNDRY ROOM ATTENDANT Appointment [facility] - Rheumatology [address] [place] [address] 06/03/2024 2:00 PM LAUNDRY ROOM ATTENDANT Office Visit [facility] - Rheumatology [address] [place] [address] Gloria Smith MD [address] [place] [address] documented as of this encounter Visit [...] 0900, 2 vials used of Actemra 400MG [facility] 88380-621-54 with 0 WASTE $ Given 03/12/2014 1:39 PM LAUNDRY ROOM ATTENDANT 800 mg 140 m L/hr documented in this encounter Care Teams Spool Cleaner Relationship Specialty Start Date End Date Tomas Hyman MD [address] [facility] [address] [place] [address] PCP - General Family Medicine 12/31/13 05/09/18 Isidro Heredia MD Rheumatology 02/09/11 documented as of this encounter
--- OUTSIDE RECORDS SUMMARY | 2024-05-03 09:08 | XMS_ITS | Encounter Summary ---
Author Organization [facility] Address [address] [facility] [place] [address] Care Team Providers Care Neckties Painter Name Role Phone Isidro Heredia MD Unavailable [phone] Tomas Hyman MD Primary Care Provider [phone] Reason for Visit * Reason Comments Pain Back Encounter Details Date Type Department Care Team (Latest Contact Info) Description 12/31/2013 11:00 AM CDT Procedure visit [facility] - Family Medicine [address] [place] [address] Lumbar radiculopathy Social History Tobacco Use [...] st Contact Info) Description 06/03/2024 1:00 PM PRESS OPERATOR HEAVY DUTY Appointment [facility] - Rheumatology [address] [place] [address] 06/03/2024 2:00 PM PRESS OPERATOR HEAVY DUTY Office Visit [facility] Medical [facility] - Rheumatology [address] [place] [address] Gloria Smith MD [address] [facility] [address] documented as of this encounter Procedures Procedure [...] unspecified documented in this encounter Care Teams Neckties Painter Relationship Specialty Start Date End Date Tomas Hyman MD [address] [facility] [address] [place] [address] PCP - General Family Medicine 12/31/13 05/09/18 Isidro Heredia MD Rheumatology 02/09/11 documented as of this encounter
--- OUTSIDE RECORDS SUMMARY | 2024-05-03 09:08 | XMS_ITS | Encounter Summary ---
Author Organization [facility] Address [address] [facility] [place] [address] Care Team Providers Care Senior Microsoft Net Developer Name Role Phone Nolberto Nicole MD Primary Care Provider [phone] Isidro Heredia MD Unavailable [phone] Reason for Visit * Treatment (Routine) - Closed Specialty Diagnoses / Procedures Referred By Lawrence shah Referred To Contact Infusion Therapy Nurse Diagnoses Rheumatoid arthritis(714.0) ([facility]) Procedures [place] INJECTION TOCILIZUMAB 1 MG Isidro Heredia MD [address] [place] [address] Referral ID Status Reason Start Date Expiration Date Visits Re quested Visits Authorized [id number] Closed 05/01/2013 04/29/2014 1 12 Encounter Details Date Type Department Care Team (Late st Contact Info) Description 09/04/2013 2:30 PM CDT - 09/04/2013 11:59 PM CDT Hospital Encounter [facility] - Rheumatology [address] [place] [address] Isidro Heredia MD [address] [place] [address] Discharge Disposition: Home or [...] Foreman RN - 09/04/2013 3:08 PM CDT PR Rheumatology Post Infusion instructions [...] through Sunday 9-5 call the office at [phone] After hours or on the weekend call the exchange at [phone] If you have had lab work done [...] Sig Dispensed Refills Start Date End Date Afhimgqulmw-Wesnrpaob-Nq t C-Mn (GLUCOSAMINE CHONDR 1500 COMPLX PO) [...] - 09/04/2013 3:05 PM CDT JOSE Deng [id number] 09/04/2013 Diagnosis: Rheumatoid arthritis [714.0]. Patient questionnaire [...] st Contact Info) Description 06/03/2024 1:00 PM DANCING MASTER Appointment [facility] - Rheumatology [address] [place] [address] 06/03/2024 2:00 PM DANCING MASTER Office Visit [facility] - Rheumatology [address] [place] [address] Gloria Smith MD [address] [place] [phone] documented as of this encounter Visit [...] mL/hr documented in this encounter Care Teams Senior Microsoft Net Developer Relationship Specialty Start Date End Date Nolberto Nicole MD PCP - General 07/21/08 12/30/13 Isidro Heredia MD Rheumatology 02/09/11 documented as of this encounter
--- OUTSIDE RECORDS SUMMARY | 2024-05-03 09:08 | XMS_ITS | Encounter Summary ---
Author Organization [facility] Address [address] [facility] [place] [address] Care Team Providers Care Broach Grinder Name Role Phone Nolberto Nicole MD Primary Care Provider [phone] Isidro Heredia MD Unavailable [phone] Encounter Details Date Type Department Care Team (Late st Contact Info) Description 09/04/2013 Orders Only [facility] - Rheumatology [address] [place] [address] [phone] Isidro Heredia MD [address] [place] [address] Rheumatoid arthritis (HCC) Social History Tobacco [...] st Contact Info) Description 06/03/2024 1:00 PM CAFETERIA SUPERVISOR Appointment [facility] - Rheumatology [address] [place] [address] [phone] 06/03/2024 2:00 PM CAFETERIA SUPERVISOR Office Visit [facility] - Rheumatology [address] [place] [address] Gloria Smith MD [address] [place] [phone] documented as of this encounter Procedures Procedure [...] PM CDT Narrative Resulting Agency Comment [facility] [place] [id number] [facility] ??[facility] [id number] Isidro Heredia MD LAB - HEMATOLOGY OR [...] CDT Narrative Resulting Agency Comment [facility] [address] ??[facility] [id number] Isidro Heredia MD LAB - CHEMISTRY ORD [...] CDT Narrative Resulting Agency Comment [facility] [address] ??[facility] [id number] Isidro Heredia MD LAB - HEMATOLOGY OR DERABLES [facility] INSURANCE BILL documented in this encounter Visit Diagnoses Diagnosis Rheumatoid arthritis(714.0) (HCC)- Primary Rheumatoid arthritis documented in this encounter Care Teams Broach Grinder Relationship Specialty Start Date End Date Nolberto Nicole MD PCP - General 07/21/08 12/30/13 Isidro Heredia MD Rheumatology 02/09/11 documented as of this encounter
--- OUTSIDE RECORDS SUMMARY | 2024-05-03 09:08 | XMS_ITS | Encounter Summary ---
Author Organization [facility] Address [address] [facility] [place] [address] Care Team Providers Care Dialysis Social Worker Name Role Phone Nolberto Nicole MD Primary Care Provider Isidro Heredia MD Unavailable [phone] Reason for Visit * Reason Comments Rheumatoid Arthritis Pain Back lower rt side down l eg. off work for 2 weeks Swelling hands, knees, should ers Pain Joint all over * Consult, Test & Treat (Routine) - Closed Specialty Diagnoses / Procedures Referred By Contac t Referred To Contact Diagnoses Rheumatoid arthritis(714.0) ([facility]) Procedures [place] OFFICE VISIT DURING HOURS Nolberto Nicole MD [address] [place] [address] Isidro Heredia MD [address] [place] [address] Referral ID Status Reason Start Date Expiration Date Visits Re quested Visits Authorized [id number] Closed 09/30/2013 03/28/2014 1 6 Encounter Details Date Type Department Care Team (Late st Contact Info) Description 11/12/2013 3:30 PM CDT Office Visit [facility] What They Like Medical [facility] - Rheumatology [address] [place] [address] Isidro Heredia MD [address] [facility] [place] [address] Rheumatoid arthritis (HCC) (Primary Dx); [...] PO) Take by mouth once daily. ??? Fbzcbitzjib-Spbrnluyc-Oda C-Mn (GLUCOSAMINE CHONDR 1500 COMPLX PO) Take by mouth once daily. ??? ZYRTEC 10 MG TABS Take 10 mg by mouth once daily. Seasonal (nov. Current Facility-Administered Medications on File Prior to Visit Medication Dose Route Frequency Provider Last Rate Last Dose ??? tocilizumab (ACTEMRA) 800 mg in 0.9% NaCl IVPB 800 mg Intravenous Once Isidro Heredia MD 800 mg at 11/12/13 165 Patient Active Problem List Diagnosis ??? Rheumatoid [...] Contact Info) Description 06/03/2024 1:00 PM GROCERY STOCK CLERK Appointment [facility] - Rheumatology [address] [place] [address] [phone] 06/03/2024 2:00 PM GROCERY STOCK CLERK Office Visit [facility] - Rheumatology [address] [place] [address] [phone] Gloria Smith MD [address] [place] [phone] documented as of this encounter Visit Diagnoses Diagnosis Rheumatoid arthritis(714.0) ([facility])- Primary Rheumatoid arthritis Chronic pain syndrome Lumbar radiculopathy Thoracic or lumbosacral neuritis or radiculitis, unspecified documented in this encounter Care Teams Dialysis Social Worker Relationship Specialty Start Date End Date Nolberto Nicole MD PCP - General 07/21/08 12/30/13 Isidro Heredia MD Rheumatology 02/09/11 documented as of this encounter
--- OUTSIDE RECORDS SUMMARY | 2024-05-03 09:08 | XMS_ITS | Encounter Summary ---
Author Organization [facility] Address [address] [place] [address] Care Team Providers Care Liquor Bridge Operator Helper Name Role Phone Isidro Heredia MD Unavailable [phone] Tomas Hyman MD Primary Care Provider Encounter Details Date Type Department Care Team (Late Contact Info) Description 03/12/2014 Orders Only [facility] - Rheumatology [address] [place] [address] Isidro Heredia MD [address] [place] [address] Rheumatoid arthritis (HCC) Social History Tobacco [...] 10:02 PM CSTQuick Note: All labs ok AINER MAKER documented in this encounter Plan of Treatment Upcoming Encounters Date Type Department Care Team (Late Contact Info) Description 06/03/2024 1:00 PM CONTAINER MAKER Appointment [facility] - Rheumatology [address] [place] [address] 06/03/2024 2:00 PM CONTAINER MAKER Office Visit [facility] - Rheumatology [address] [place] [address] Gloria Smith MD [address] [place], [place] [address] [phone] documented as of this encounter Procedures Procedure Name Priority Date/Time Associated Diagnosis Comments ERYTHROCYTE SEDIMENTATION RATE Routine 03/12/2014 3:00 PM CONTAINER MAKER Rheumatoid Arthritis (Hcc) CBC W AUTO DIFFERENTIAL Routine 03/12/2014 3:00 PM CONTAINER MAKER Rheumatoid Arthritis (Hcc) COMPREHENSIVE METABOLIC PANEL Routine 03/12/2014 3:00 PM CONTAINER MAKER Rheumatoid Arthritis (Hcc) documented in this encounter Results * SED RATE WESTERGREN (03/12/2014 3:00 PM CONTAINER MAKER) Erythrocyte Sedimentation Rate Westergren 3 0 - 30 mm/hr [facility] INSURANCE BILL Blood specimen (specimen) BLOOD SPECIMEN / Unknown 03/12/2014 3:00 PM CONTAINER MAKER 03/12/2014 6:44 PM CONTAINER MAKER Narrative Resulting Agency Comment [facility] [address] ??[facility] [id number] Isidro Heredia MD LAB - HEMATOLOGY OR DERABLES [facility] INSURANCE BILL * (ABNORMAL) COMPREHENSIVE METABOLIC PANEL (03/12/2014 3:00 PM CONTAINER MAKER) Glucose 101(H) 65 - 99 mg/dL [facility] [...] BLOOD SPECIMEN / Unknown 03/12/2014 3:00 PM CONTAINER MAKER 03/12/2014 6:44 PM CONTAINER MAKER Narrative Resulting Agency Comment [facility] [address] ??[facility] [id number] Isidro Heredia MD LAB - CHEMISTRY ORD ERABLES [facility] INSURANCE BILL * CBC W AUTO DIFFERENTIAL (03/12/2014 3:00 PM CONTAINER MAKER) WBC 9.8 3.4 - 10.8 x10E3/uL [facility] [...] BLOOD SPECIMEN / Unknown 03/12/2014 3:00 PM CONTAINER MAKER 03/12/2014 6:44 PM CONTAINER MAKER Narrative Resulting Agency Comment [facility] [address] ??[facility] [id number] Isidro Hreedia MD LAB - HEMATOLOGY OR DERABLES [facility] INSURANCE BILL documented in this encounter Visit Diagnoses Diagnosis Rheumatoid arthritis(714.0) ([facility])- Primary Rheumatoid arthritis documented in this encounter Care Teams Liquor Bridge Operator Helper Relationship Specialty Start Date End Date Tomas Hyman MD [address] [place] [address] PCP - General Family Medicine 12/31/13 05/09/18 Isidro Heredia MD Rheumatology 02/09/11 documented as of this encounter
--- OUTSIDE RECORDS SUMMARY | 2024-05-03 09:08 | XMS_ITS | Encounter Summary ---
Author Organization [facility] Address [address] [place] [address] Care Team Providers Care Software Quality Test Engineer Name Role Phone Isidro Heredia MD Unavailable [phone] Tomas Hyman MD Primary Care Provider [phone] Reason for Visit * Reason Comments Rheumatoid Arthritis * Consult, Test & Treat (Routine) - Closed Specialty Diagnoses / Procedures Referred By Lawrence t Referred To Contact Diagnoses Rheumatoid arthritis(714.0) (HCC) Procedures [place] OFFICE VISIT DURING HOURS Nolberto Nicole MD [address] [place] [address] Isidro Heredia MD [address] [place] [address] Referral ID Status Reason Start Date Expiration Date Visits Re quested Visits Authorized [id number] Closed 09/30/2013 03/28/2014 1 6 Encounter Details Date Type Department Care Team (Late st Contact Info) Description 01/14/2014 2:30 PM CDT Office Visit [facility] Medical [facility] - Rheumatology [address] [place] [address] Isidro Heredia MD [address] [place] [address] Rheumatoid arthritis (HCC) (Primary Dx); [...] PO) Take by mouth once daily. ??? Vximwrmjghu-Ildmqxpfs-Pkn C-Mn (GLUCOSAMINE CHONDR 1500 COMPLX PO) Take [...] st Contact Info) Description 06/03/2024 1:00 PM GROUP LEADER SEMICONDUCTOR PROCESSING Appointment [facility] - Rheumatology [address] [place] [address] 06/03/2024 2:00 PM GROUP LEADER SEMICONDUCTOR PROCESSING Office Visit [facility] Medical [facility] - Rheumatology [address] [place] [address] Gloria Smith MD [address] [place] [phone] documented as of this encounter Visit Diagnoses Diagnosis Rheumatoid arthritis(714.0) (HCC)- Primary Rheumatoid arthritis Chronic pain syndrome documented in this encounter Care Teams Software Quality Test Engineer Relationship Specialty Start Date End Date Tomas Hyman MD [address] [place] [address] PCP - General Family Medicine 12/31/13 05/09/18 Isidro Heredia MD Rheumatology 02/09/11 documented as of this encounter
--- OUTSIDE RECORDS SUMMARY | 2024-05-03 09:08 | XMS_ITS | Encounter Summary ---
Author Organization [facility] Address [address] [facility] [place] [address] Care Team Providers Care Surgical Coordinator Name Role Phone Isidro Heredia MD Unavailable [phone] Tomas Hyman MD Primary Care Provider [phone] Reason for Visit * Treatment (Routine) - Closed Specialty Diagnoses / Procedures Referred By Contsarahi t Referred To Contact Pain Management Diagnoses Displacement of lumbar intervertebral disc without myelopathy Thoracic or lumbosacral neuritis or radiculitis, unspecified Procedures WA INJ,FORAMEN,L/S,1 LEVEL [place] INJ,FORAMEN,L/S,[place] [id number] [address] [facility] Pain Care [address] [place] [address] Referral ID Status Reason Start Date Expiration Date Visits Re quested Visits Authorized [id number] Closed 03/10/2014 09/06/2014 6 6 Encounter Details Date Type Department Care Team (Latest Contact Info) Description 03/17/2014 9:09 AM TOOL REPAIR TECHNICIAN Hospital Encounter [facility] Pain Care [address] [place] [address] [place] [address] [address] Discharge Disposition: Home or Self [...] Sig Dispensed Refills Start Date End Date Mddbjnigwun-Ducgmpvnx-Hs t C-Mn (GLUCOSAMINE CHONDR 1500 COMPLX PO) [...] 5-325 MG tabletIndications:Rheuma toid arthritis(714.0) ([facility]) Take 1 Tab by mouth every [...] Contact Info) Description 06/03/2024 1:00 PM TOOL REPAIR TECHNICIAN Appointment [facility] - Rheumatology [address] [place] [address] [phone] 06/03/2024 2:00 PM TOOL REPAIR TECHNICIAN Office Visit [facility] - Rheumatology [address] [place] [address] [phone] Gloria Smith MD [address] [place] [phone] documented as of this encounter Visit Diagnoses Not on filedocumented in this encounter Care Teams Surgical Coordinator Relationship Specialty Start Date End Date Tomas Hyman MD [address] [facility] [address] [place] [address] PCP - General Family Medicine 12/31/13 05/09/18 Isidro Heredia MD Rheumatology 02/09/11 documented as of this encounter
--- OUTSIDE RECORDS SUMMARY | 2024-05-03 09:08 | XMS_ITS | Encounter Summary ---
Author Organization [facility] Address [address] [facility] [place] [address] Care Team Providers Care Business Consult Name Role Phone Nolberto Nicole MD Primary Care Provider Isidro Heredia MD Unavailable [phone] Reason for Visit * Reason Comments Rheumatoid Arthritis * Consult, Test & Treat (Routine) - Closed Specialty Diagnoses / Procedures Referred By Contsarahi t Referred To Contact Diagnoses Rheumatoid arthritis(714.0) (HCC) Procedures [place] OFFICE VISIT DURING HOURS Nolberto Nicole MD [address] [place] [address] Isidro Heredia MD [address] [place] [address] Referral ID Status Reason Start Date Expiration Date Visits Re quested Visits Authorized [id number] Closed 03/14/2013 09/11/2013 1 6 Encounter Details Date Type Department Care Team (Late st Contact Info) Description 07/09/2013 2:00 PM CDT Office Visit [facility] - Rheumatology [address] [place] [address] Isidro Heredia MD [address] [place] [address] Rheumatoid arthritis (HCC) (Primary Dx); Chronic [...] Body Mass Index 20.66 06/10/2013 2:00 PM SENIOR TECHNICAL TRAINER documented in this encounter Progress Notes * [...] PO) Take by mouth once daily. ??? Mgzioijoies-Viophhtjo-Wts C-Mn (GLUCOSAMINE CHONDR 1500 COMPLX PO) Take [...] Contact Info) Description 06/03/2024 1:00 PM SENIOR TECHNICAL TRAINER Appointment [facility] - Rheumatology [address] [place] [address] 06/03/2024 2:00 PM SENIOR TECHNICAL TRAINER Office Visit [facility] - Rheumatology [address] [place] [address] Gloria Smith MD [address] [place] [phone] documented as of this encounter Visit Diagnoses Diagnosis Rheumatoid arthritis(714.0) (HCC)- Primary Rheumatoid arthritis Chronic pain syndrome documented in this encounter Care Teams Business Consult Relationship Specialty Start Date End Date Nolberto Nicole MD PCP - General 07/21/08 12/30/13 Isidro Heredia MD Rheumatology 02/09/11 documented as of this encounter
--- OUTSIDE RECORDS SUMMARY | 2024-05-03 09:08 | XMS_ITS | Encounter Summary ---
Author Organization [facility] Address [address] [place] [address] Care Team Providers Care Social Insurance Analyst Name Role Phone Nolberto Nicole MD Primary Care Provider [phone] Isidro Heredia MD Unavailable [phone] Encounter Details Date Type Department Care Team (Late st Contact Info) Description 11/12/2013 Orders Only [facility] - Rheumatology [address] [place] [address] [phone] Isidro Heredia MD [address] [place] [address] Rheumatoid arthritis (HCC) Social History Tobacco [...] Progress Notes * Yamileth Rodríguez MA - 11/19/2013 11:56 AM CDTQuick [...] Contact Info) Description 06/03/2024 1:00 PM WATER PUMP SERVICER Appointment [facility] - Rheumatology [address] [place] [address] 06/03/2024 2:00 PM WATER PUMP SERVICER Office Visit [facility] - Rheumatology [address] [place] [address] Gloria Smith MD [address] [place] [phone] documented as of this encounter Procedures [...] 6:13 PM CDT Narrative Resulting Agency Comment [facility] ??[facility] [phone] Isidro Heredia MD LAB - CHEMISTRY ORD ERABLES Performing Organization Address City/[facility] Co de Phone Number [facility] INSURANCE BILL * SED RATE WESTERGREN (11/12/2013 4:15 PM CDT) Erythrocyte Sedimentation Rate Westergren 7 0 - 30 mm/hr [facility] INSURANCE BILL Blood specimen (specimen) BLOOD SPECIMEN / Unknown 11/12/2013 4:15 PM CDT 11/12/2013 6:13 PM CDT Narrative Resulting Agency Comment [address] ??[facility] [phone] Isidro Heredia MD LAB - HEMATOLOGY OR DERABLES Performing Organization Address City/State/[facility] [...] CDT Narrative Resulting Agency Comment [facility] [address] ??[facility] [phone] Isidro Heredia MD LAB - HEMATOLOGY OR DERABLES [facility] INSURANCE BILL documented in this encounter Visit Diagnoses Diagnosis Rheumatoid arthritis(714.0) (HCC)- Primary Rheumatoid arthritis documented in this encounter Care Teams Social Insurance Analyst Relationship Specialty Start Date End Date Nolberto Nicole MD PCP - General 07/21/08 12/30/13 Isidro Heredia MD Rheumatology 02/09/11 documented as of this encounter
--- OUTSIDE RECORDS SUMMARY | 2024-05-03 09:08 | XMS_ITS | Encounter Summary ---
Author Organization [facility] Address [address] [facility] [place] [address] Care Team Providers Care Embedded Engineer Name Role Phone Isidro Heredia MD Unavailable [phone] Tomas Hyman MD Primary Care Provider [phone] Encounter Details Date Type Department Care Team (Late st Contact Info) Description 01/14/2014 Orders Only [facility] - Rheumatology [address] [place] [address] [phone] Isidro Heredia MD [address] [place] [address] Rheumatoid arthritis (HCC) Social History Tobacco [...] st Contact Info) Description 06/03/2024 1:00 PM COMPONENT ASSEMBLER SUPERVISOR Appointment [facility] - Rheumatology [address] [place] [address] 06/03/2024 2:00 PM COMPONENT ASSEMBLER SUPERVISOR Office Visit [facility] - Rheumatology [address] [place] [address] lGoria Smith MD [address] [place] [phone] documented as of this encounter Procedures [...] 6:09 PM CDT Narrative Resulting Agency Comment [facility] ??[facility] [phone] Isidro Heredia MD LAB - CHEMISTRY ORD ERABLES [facility] INSURANCE BILL * SED RATE WESTERGREN (01/14/2014 4:00 PM CDT) Erythrocyte Sedimentation Rate Westergren 7 0 - 30 mm/hr [facility] INSURANCE BILL Blood specimen (specimen) BLOOD SPECIMEN / Unknown 01/14/2014 4:00 PM CDT 01/14/2014 6:09 PM CDT Narrative Resulting Agency Comment [address] ??[facility] [phone] Isidro Heredia MD LAB - HEMATOLOGY OR [...] CDT Narrative Resulting Agency Comment [facility] [address] ??[facility] [phone] Isidro Heredia MD LAB - HEMATOLOGY OR DERABLES [facility] INSURANCE BILL documented in this encounter Visit Diagnoses Diagnosis Rheumatoid arthritis(714.0) (HCC)- Primary Rheumatoid arthritis documented in this encounter Care Teams Embedded Engineer Relationship Specialty Start Date End Date Tomas Hyman MD [address] [place] [address] PCP - General Family Medicine 12/31/13 05/09/18 Isidro Heredia MD Rheumatology 02/09/11 documented as of this encounter
--- OUTSIDE RECORDS SUMMARY | 2024-05-03 09:08 | XMS_ITS | Encounter Summary ---
Author Organization [facility] Address [address] [place] [address] Care Team Providers Care Application Defense Manager Name Role Phone Nolberto Nicole MD Primary Care Provider Isidro Heredia MD Unavailable [phone] Reason for Visit * Reason Onset Date Comments Rheumatoid Arthritis 12/30/2013 Pain Back 12/30/2013 Lower Extremity Problem 12/30/2013 Encounter Details Date Type Department Care Team (Late st Contact Info) Description 12/30/2013 Telephone [facility] - Rheumatology [address] [place] [address] Isidro Heredia MD [address] [place] [address] Rheumatoid Arthritis; Pain Back; Lower Extremity [...] st Contact Info) Description 06/03/2024 1:00 PM INFRASTRUCTURE DEVELOPER Appointment [facility] - Rheumatology [address] [place] [address] 06/03/2024 2:00 PM INFRASTRUCTURE DEVELOPER Office Visit [facility] - Rheumatology [address] [place] [address] Gloria Smith MD [address] [place] [phone] documented as of this encounter Visit Diagnoses Not on filedocumented in this encounter Care Teams Application Defense Manager Relationship Specialty Start Date End Date Nolberto Nicole MD PCP - General 07/21/08 12/30/13 Isidro Heredia MD Rheumatology 02/09/11 documented as of this encounter
--- OUTSIDE RECORDS SUMMARY | 2024-05-03 09:08 | XMS_ITS | Encounter Summary ---
Author Organization [facility] Address [address] [facility] [place] [address] Care Team Providers Care Spline Rolling Machine Job Setter Name Role Phone Isidro Heredia MD Unavailable [phone] Tomas Hyman MD Primary Care Provider [phone] Encounter Details Date Type Department Care Team (Latest Contact Info) Description 03/10/2014 10:19 AM DETAILER PHARMACEUTICALS - 03/10/2014 11:59 PM DETAILER PHARMACEUTICALS Hospital Encounter [facility] [address] [place] [address] [place] [address] [place] [phone] Discharge Disposition: Home or Self Care Social [...] Comments Blood Pressure 153/106 03/10/2014 11:12 AM DETAILER PHARMACEUTICALS Pulse 110 03/10/2014 11:12 AM DETAILER PHARMACEUTICALS Temperature - - Respiratory Rate 16 03/10/2014 11:12 AM DETAILER PHARMACEUTICALS Oxygen Saturation 98% 03/10/2014 11:12 AM DETAILER PHARMACEUTICALS Inhaled Oxygen Concentration - - Weight - - Height - - Body Mass Index - - documented in this encounter Discharge Instructions * Patient Instructions* Nena Pond RN - 03/10/2014 10:32 AM DETAILER PHARMACEUTICALS [facility] Pain Discharge Instructions Selective Epidural [...] headache, or any other problems, please call [phone] or after hours call Dr. Mirza at [phone] and tell them your physician's name. The exchange will alert the physician reconnaissance man. If sedation is given: No sedation given. For Your Next Visit: No additional instructions. Other Instructions: May remove band-aid in 12 Hours. Return in one week for TFE #2. Patient Signature: Date: RN Signature: Date: [employer] documented in this encounter Medications at Time of Discharge Medication Sig Dispensed Refills Start Date End Date Yvmuvpzgyjh-Fxnzahxnb-Pf t C-Mn (GLUCOSAMINE CHONDR 1500 COMPLX PO) [...] oxyCODONE-acetaminophen (PERCOCET) 5-325 MG tabletIndications:Rheuma toid arthritis(714.0) ([facility]) Take 1 Tab by mouth every 6 [...] and marked by Dr. Mirza. Responsible driver examiner is not needed due to the patient [...] Add Levels Lumb/Sac, Fluoro. Alejandro Mirza MD [employer] documented in this encounter Plan of Treatment Upcoming Encounters Date Type Department Care Team (Late st Contact Info) Description 06/03/2024 1:00 PM DETAILER PHARMACEUTICALS Appointment [facility] - Rheumatology [address] [place] [address] [phone] 06/03/2024 2:00 PM DETAILER PHARMACEUTICALS Office Visit [facility] - Rheumatology [address] [place] [address] [phone] Gloria Smith MD [address] [place] [phone] documented as of this encounter Procedures Procedure Name Priority Date/Time Associated Diagnosis Comments PAIN MANAGEMENT PROCEDURE TIME Routine 03/10/2014 11:10 AM DETAILER PHARMACEUTICALS Displacement Of Lumbar Intervertebral Disc Without Myelopathy Thoracic or lumbosacral neuritis or radiculitis, unspecified documented in this encounter Results * PAIN MANAGEMENT PROCEDURE TIME (03/10/2014 11:10 AM [employer]AILER [employer]ARMACE[employer]ICALS) Anatomical Region Laterality Modality X-Ray Angiograph y Narrative 03/10/2014 11:16 AM DETAILER PHARMACE[employer]ICALS Alejandro Mirza MD ? 03/10/2014 11:16 AM [...] and marked by Dr. Mirza. ??Responsible driver examiner is not needed due to the patient [...] site identified, andmarked by Dr. Mirza. Responsible driver examiner is not needed due to the patientnot [...] Admin. by Other Provider 03/10/2014 10:45 AM DETAILER PHARMACEUTICALS 10 mg lidocaine (XYLOCAINE MPF) 1 % injection Infiltration, ONCE, 1 dose, On Sun03/10/14 at 1100 $ Admin. by Other Provider 03/10/2014 10:45 AM [employer]AILER [employer]ARMACE[employer]ICALS 5 mL documented in this encounter Care Teams Spline Rolling Machine Job Setter Relationship Specialty Start Date End Date Tomas Hyman MD [address] [facility] [address] [place] [address] PCP - General Family Medicine 12/31/13 05/09/18 Isidro Heredia MD Rheumatology 02/09/11 documented as of this encounter
--- OUTSIDE RECORDS SUMMARY | 2024-05-03 09:08 | XMS_ITS | Encounter Summary ---
Author Organization [facility] Address [address] [place] [address] Care Team Providers Care Special Effects Person Name Role Phone Nolberto Nicole MD Primary Care Provider [phone] Isidro Heredia MD Unavailable [phone] Encounter Details Date Type Department Care Team (Late Contact Info) Description 09/04/2013 Orders Only [facility] - Rheumatology [address] [place] [address] Carlos Foreman RN Rheumatoid arthritis (HCC) [...] Contact Info) Description 06/03/2024 1:00 PM ORACLE SECURITY CONSULTANT Appointment [facility] - Rheumatology [address] [place] [address] 06/03/2024 2:00 PM ORACLE SECURITY CONSULTANT Office Visit [facility] - Rheumatology [address] [place] [address] Gloria Smith MD [address] [place] [phone] documented as of this encounter Visit Diagnoses Diagnosis Rheumatoid arthritis(714.0) (HCC)- Primary Rheumatoid arthritis documented in this encounter Care Teams Special Effects Person Relationship Specialty Start Date End Date Nolberto Nicole MD PCP - General 07/21/08 12/30/13 Isidro Heredia MD Rheumatology 02/09/11 documented as of this encounter
--- OUTSIDE RECORDS SUMMARY | 2024-05-03 09:08 | XMS_ITS | Encounter Summary ---
Author Organization [facility] Address [address] [place] [address] Care Team Providers Care Cigar Making Machine Supervisor Name Role Phone Nolberto Nicole MD Primary Care Provider [phone] Isidro Heredia MD Unavailable [phone] Reason for Visit * Treatment (Routine) - Closed Specialty Diagnoses / Procedures Referred By Lawrence shah Referred To Contact Infusion Therapy Nurse Diagnoses Rheumatoid arthritis(714.0) ([facility]) Procedures [place] INJECTION TOCILIZUMAB 1 MG Isidro Heredia MD [address] [place] [address] Referral ID Status Reason Start Date Expiration Date Visits Re quested Visits Authorized [id number] Closed 05/01/2013 04/29/2014 1 12 Encounter Details Date Type Department Care Team (Late st Contact Info) Description 10/15/2013 11:00 AM CDT - 10/15/2013 11:59 PM T Hospital Encounter [facility] - Rheumatology [address] [place] [address] Isidro Heredia MD [address] [place] [address] Discharge Disposition: Home or Self [...] Sierra RN - 10/15/2013 11:17 AM CDT [place] Rheumatology Post Infusion instructions [...] through Sunday 9-5 call the office at [phone] After hours or on the weekend call the exchange at [phone] If you have had lab work done [...] chosen [facility] as your provider. Manisha Sierra RN documented in this encounter Medications at Time of Discharge Medication Sig Dispensed Refills Start Date End Date Tosuoqvqcsl-Izkkfwnvr-Ns t C-Mn (GLUCOSAMINE CHONDR 1500 COMPLX PO) [...] - 10/15/2013 12:12 PM CDT JOSE Deng [id number] 10/15/2013 Diagnosis: Rheumatoid arthritis [714.0]. Patient questionnaire [...] st Contact Info) Description 06/03/2024 1:00 PM MAIL CARRIER AND CLERK Appointment [facility] - Rheumatology [address] [place] [address] 06/03/2024 2:00 PM MAIL CARRIER AND CLERK Office Visit [facility] - Rheumatology [address] [place] [address] Gloria Smith MD [address] [place] [phone] documented as of this encounter Visit Diagnoses Diagnosis Rheumatoid arthritis(714.0) ([facility])- Primary Rheumatoid arthritis documented in this encounter [...] hr documented in this encounter Care Teams Cigar Making Machine Supervisor Relationship Specialty Start Date End Date Nolberto Nicole MD PCP - General 07/21/08 12/30/13 Isidro Heredia MD Rheumatology 02/09/11 documented as of this encounter
--- OUTSIDE RECORDS SUMMARY | 2024-05-03 09:08 | XMS_ITS | Encounter Summary ---
Author Organization [facility] Address [address] [place] [address] Care Team Providers Care Slab Installer Name Role Phone Htiesh Solis MD Unavailable [phone] Tomas Hyman MD Primary Care Provider [phone] Reason for Referral * Evaluate & Treat - Closed Specialty Diagnoses / Procedures Referred By Lawrence shah Referred To Contact Diagnoses Lumbar radiculopathy Hitesh Solis MD [address] [place] [address] [place] [address] [address] Referral ID Status Reason Start Date Expiration Date V isits Requested Visits Authorized [id number] Closed Specialty Services Required 02/25/2014 02/25/2015 6 6 Reason for Visit * Reason Comments Rheumatoid Arthritis Pain Joint upper and lower extr emities * Evaluate & Treat (Routine) - Closed Specialty Diagnoses / Procedures Referred By Lawrence shah Referred To Contact Diagnoses Rheumatoid arthritis(714.0) ([facility]) Procedures [place] OFFICE VISIT DURING HOURS Tomas Hyman MD [address] [facility] [address] [place] [address] Hitesh Solis MD [address] [place] [address] Referral ID Status Reason Start Date Expiration Date Visits Re quested Visits Authorized [id number] Closed 02/10/2014 02/10/2015 6 6 Encounter Details Date Type Department Care Team (Late st Contact Info) Description 02/12/2014 2:00 PM CDT Office Visit [facility] - Rheumatology [address] [place] [address] Hitesh Solis MD [address] [place] [address] ZOHAIB ESPINO [address] Rheumatoid arthritis (HCC) (Primary Dx); Chronic pain [...] PO) Take by mouth once daily. ??? Qauqivhmxwz-Bihjlezes-Rtg C-Mn (GLUCOSAMINE CHONDR 1500 COMPLX PO) Take [...] st Contact Info) Description 06/03/2024 1:00 PM COIN MACHINE OPERATOR Appointment [facility] - Rheumatology [address] [place] [address] 06/03/2024 2:00 PM COIN MACHINE OPERATOR Office Visit [facility] - Rheumatology [address] [place] [address] Gloria Smith MD [address] [place] [phone] Scheduled Referrals Name Type Priority Associated [...] arthritis(714.0) ([facility])- Primary Rheumatoid arthritis Chronic pain syndrome Lumbar radiculopathy Thoracic or lumbosacral neuritis or radiculitis, unspecified Rheumatoid arthritis(714.0) ([facility])- Primary Rheumatoid arthritis documented in this encounter Care Teams Slab Installer Relationship Specialty Start Date End Date Tomas Hyman MD [address] [facility] [address] [place] [address] PCP - General Family Medicine 12/31/13 05/09/18 Hitesh Solis MD Rheumatology 02/09/11 documented as of this encounter
--- OUTSIDE RECORDS SUMMARY | 2024-05-03 09:08 | XMS_ITS | Encounter Summary ---
Author Organization [facility] Address [address] [facility] [place] [address] Care Team Providers Care Asphalt Spreader Name Role Phone Isidro Heredia MD Unavailable [phone] Tomas Hyman MD Primary Care Provider [phone] Reason for Visit * Reason Comments Rheumatoid Arthritis Lower Extremity Problem right hip pain r adiates down right leg into foot * Consult, Test & Treat (Routine) - Closed Specialty Diagnoses / Procedures Referred By Contac t Referred To Contact Diagnoses Rheumatoid arthritis(714.0) ([facility]) Procedures [place] OFFICE VISIT DURING HOURS Nolberto Nicole MD [address] [place] [address] Isidro Heredia MD [address] [place] [address] Referral ID Status Reason Start Date Expiration Date Visits Re quested Visits Authorized [id number] Closed 09/30/2013 03/28/2014 1 6 Encounter Details Date Type Department Care Team (Late st Contact Info) Description 12/31/2013 11:00 AM CDT Office Visit [facility] - Rheumatology [address] [place] [address] Isidro Heredia MD [address] [place] [address] Chronic pain syndrome (Primary Dx); [...] PO) Take by mouth once daily. ??? Xbejejihwzg-Kisxmipzl-Hth C-Mn (GLUCOSAMINE CHONDR 1500 COMPLX PO) Take [...] st Contact Info) Description 06/03/2024 1:00 PM TRAVELING MISSIONARY Appointment [facility] - Rheumatology [address] [place] [address] [phone] 06/03/2024 2:00 PM TRAVELING MISSIONARY Office Visit [facility] - Rheumatology [address] [place] [address] [phone] Gloria Smith MD [address] [place] [phone] documented as of this encounter Results * [...] Diagnosis Chronic pain syndrome- Primary Rheumatoid arthritis(714.0) ([facility]) Rheumatoid arthritis Lumbar radiculopathy Thoracic or lumbosacral neuritis or radiculitis, unspecified Lumbar radiculopathy- Primary Thoracic or lumbosacral neuritis or radiculitis, unspecified documented in this encounter Care Teams Asphalt Spreader Relationship Specialty Start Date End Date Tomas Hyman MD [address] [facility] [address] [place] [address] PCP - General Family Medicine 12/31/13 05/09/18 Isidro Heredia MD Rheumatology 02/09/11 documented as of this encounter
--- OUTSIDE RECORDS SUMMARY | 2024-05-03 09:08 | XMS_ITS | Encounter Summary ---
Author Organization [facility] Address [address] [facility] [place] [address] Care Team Providers Care Operation Research Analyst Name Role Phone Isidro Heredia MD Unavailable [phone] Tomas Hyman MD Primary Care Provider [phone] Reason for Visit * Oncology Prior Authorization - Closed Specialty Diagnoses / Procedures Referred By Contsarahi t Referred To Contact Infusion Therapy Nurse Diagnoses Rheumatoid arthritis(714.0) ([facility]) Procedures [place] INJECTION TOCILIZUMAB 1 MG Isidro Heredia MD [address] [place] [address] [phone] Referral ID Status Reason Start Date Expiration Date Visits Re quested Visits Authorized [id number] Closed 05/01/2013 04/29/2014 1 12 Encounter Details Date Type Department Care Team (Late st Contact Info) Description 02/12/2014 1:44 PM CDT - 02/12/2014 11:59 PM CDT Hospital Encounter [facility] - Rheumatology [address] [place] [address] Isidro Heredia MD [address] [place] [address] Discharge Disposition: Home or Self [...] Foreman RN - 02/12/2014 4:03 PM CDT [place] Rheumatology Post Infusion instructions [...] Sunday through 01-02 call the office at [phone] After hours or on the weekend call the exchange at [phone] If you have had lab work done [...] Sig Dispensed Refills Start Date End Date Sfugzpbgtle-Fgdlwxdsw-Hp t C-Mn (GLUCOSAMINE CHONDR 1500 COMPLX PO) [...] 0.9 % 100 mLIndications:Rheumatoid arthritis(714.0) ([facility]) Pt to receive IV infusion 800mg Actemra/100cc0.9%norm al saline, per nasir Avila's office practice of Actemra 8mg/kg over 60 minutes and the Actemra schedule; first dose, then every 4 weeks thereafter, unless further orders received from . Exp 09/04/2014 09/04/2013 09/04/2014 documented as of this encounter Progress Notes * Carlos Foreman RN - 02/12/2014 3:15 PM CDT JOSE Deng [id number] 02/12/2014 Diagnosis: Rheumatoid arthritis [714.0]. Patient questionnaire [...] Contact Info) Description 06/03/2024 1:00 PM GOLF TECHNICIAN Appointment [facility] - Rheumatology [address] [place] [address] 06/03/2024 2:00 PM GOLF TECHNICIAN Office Visit [facility] - Rheumatology [address] [place] [address], [place] [address] Gloria Smith MD [address] [place] [phone] documented as of this encounter Visit Diagnoses [...] 0945, 2 vials used of Actemra 400MG [facility] 04709-136-47 with 0 WASTE $ Given 02/12/2014 3:10 PM CDT 800 mg 100 m L/hr documented in this encounter Care Teams Operation Research Analyst Relationship Specialty Start Date End Date Tomas Hyman MD [address] [facility] [address] [place] [address] PCP - General Family Medicine 12/31/13 05/09/18 Isidro Heredia MD Rheumatology 02/09/11 documented as of this encounter
--- OUTSIDE RECORDS SUMMARY | 2024-05-03 09:08 | XMS_ITS | Encounter Summary ---
Author Organization [facility] Address [address] [place] [address] Care Team Providers Care Nuclear Medicine Technologist Name Role Phone Nolberto Nicole MD Primary Care Provider Isidro Heredia MD Unavailable [phone] Reason for Visit * Treatment (Routine) - Closed Specialty Diagnoses / Procedures Referred By Lawrence shah Referred To Contact Infusion Therapy Nurse Diagnoses Rheumatoid arthritis(714.0) ([facility]) Procedures AR INJECTION TOCILIZUMAB 1 MG Isidro Heredia MD [address] [place] [address] Referral ID Status Reason Start Date Expiration Date Visits Re quested Visits Authorized [id number] Closed 05/01/2013 04/29/2014 1 12 Encounter Details Date Type Department Care Team (Late st Contact Info) Description 11/12/2013 3:33 PM CDT - 11/12/2013 11:59 PM CDT Hospital Encounter [facility] - Rheumatology [address] [place] [address] Isidro Heredia MD [address] [place] [address] Discharge Disposition: Home or Self [...] Foreman RN - 11/12/2013 5:48 PM CDT [place] Rheumatology Post Infusion instructions [...] Sunday through Sunday- call the office at [phone] After hours or on the weekend call the exchange at [phone] If you have had lab work done [...] Sig Dispensed Refills Start Date End Date Doqclqjsloe-Tvjjfksir-Dg t C-Mn (GLUCOSAMINE CHONDR 1500 COMPLX PO) [...] st Contact Info) Description 06/03/2024 1:00 PM JIG INSPECTOR Appointment [facility] - Rheumatology [address] [place] [address] [phone] 06/03/2024 2:00 PM JIG INSPECTOR Office Visit [facility] - Rheumatology [address] [place] [address] Gloria Smith MD [address] [place] [address] [phone] documented as of this encounter Visit Diagnoses Diagnosis Rheumatoid arthritis(714.0) ([facility])- Primary Rheumatoid arthritis documented in this [...] mL/hr documented in this encounter Care Teams Nuclear Medicine Technologist Relationship Specialty Start Date End Date Nolberto Nicole MD PCP - General 07/21/08 12/30/13 Isidro Heredia MD Rheumatology 02/09/11 documented as of this encounter
--- OUTSIDE RECORDS SUMMARY | 2024-05-03 09:08 | XMS_ITS | Encounter Summary ---
Author Organization [facility] Address [address] [facility] [place] [address] Care Team Providers Care Dynamometer Tester Name Role Phone Isidro Heredia MD Unavailable [phone] Tomas Hyman MD Primary Care Provider [phone] Reason for Visit * Reason Comments Arthritis Encounter Details Date Type Department Care Team (Latest Contact Info) Description 02/12/2014 2:00 PM CDT Procedure visit [facility] Family Medicine [address] [place] [place] [address] Rheumatoid arthritis (HCC) Social History Tobacco Use [...] st Contact Info) Description 06/03/2024 1:00 PM ROLL FORMING MACHINE SET UP OPERATOR Appointment [facility] - Rheumatology [address] [place] [address] 06/03/2024 2:00 PM ROLL FORMING MACHINE SET UP OPERATOR Office Visit [facility] - Rheumatology [address] [place], [place] [phone] Gloria Smith MD [address] [place] [phone] documented as of this encounter Procedures Procedure [...] arthritis documented in this encounter Care Teams Dynamometer Tester Relationship Specialty Start Date End Date Tomas Hyman MD [address] [facility] [address] [place] [address] PCP - General Family Medicine 12/31/13 05/09/18 Isidro Heredia MD Rheumatology 02/09/11 documented as of this encounter
--- OUTSIDE RECORDS SUMMARY | 2024-05-03 09:08 | XMS_ITS | Encounter Summary ---
Author Organization [facility] Address [address] [place] [address] Care Team Providers Care Mass Spectrometry Manager Name Role Phone Nolberto Nicole MD Primary Care Provider [phone] Isidro Heredia MD Unavailable [phone] Encounter Details Date Type Department Care Team (Late st Contact Info) Description 07/09/2013 Orders Only [facility] - Rheumatology [address] [place] [address] Isidro Heredia MD [address] [place] [address] Rheumatoid arthritis (HCC) ; Other and [...] st Contact Info) Description 06/03/2024 1:00 PM HARVESTER OPERATOR Appointment [facility] - Rheumatology [address] [place] [address] [phone] 06/03/2024 2:00 PM HARVESTER OPERATOR Office Visit [facility] - Rheumatology [address] [place] [address] Gloria Smith MD [address] [place] [phone] documented as of this encounter Procedures [...] PM CDT Narrative Resulting Agency Comment [facility] [address] ??[facility] [phone] Isidro Heredia MD LAB - HEMATOLOGY OR [...] PM CDT Narrative Resulting Agency Comment [facility] [address] ??[facility] [phone] Isidro Heredia MD LAB - CHEMISTRY ORD [...] PM CDT Narrative Resulting Agency Comment [facility] [address] ??[facility] [phone] Isidro Heredia MD LAB - HEMATOLOGY OR [...] PM CDT Narrative Resulting Agency Comment [facility] [address] ??[facility] [phone] Isidro Heredia MD LAB - CHEMISTRY ORD ERABLES [facility] INSURANCE BILL documented in this encounter Visit Diagnoses Diagnosis Rheumatoid arthritis(714.0) ([facility])- Primary Rheumatoid arthritis Other and unspecified hyperlipidemia documented in this encounter Care Teams Mass Spectrometry Manager Relationship Specialty Start Date End Date Nolberto Nicole MD PCP - General 07/21/08 12/30/13 Isidro Heredia MD Rheumatology 02/09/11 documented as of this encounter
--- OUTSIDE RECORDS SUMMARY | 2024-05-03 09:08 | XMS_ITS | Encounter Summary ---
Author Organization [facility] Address [address] [place] [address] Care Team Providers Care Printer Machine Name Role Phone Isidro Heredia MD Unavailable [phone] Tomas Hyman MD Primary Care Provider Reason for Visit * Reason Comments Refill Request Encounter Details Date Type Department Care Team (Late Contact Info) Description 01/25/2014 Refill [facility] - Rheumatology [address] [place] [address] Isidro Heredia MD [address] [place] [address] Refill Request Social History Tobacco Use [...] (Late Contact Info) Description 06/03/2024 1:00 PM REHABILITATION SERVICES AIDE Appointment [facility] - Rheumatology [address] [place] [address] 06/03/2024 2:00 PM REHABILITATION SERVICES AIDE Office Visit [facility] Rheumatology [address] [place] [address] Gloria Smith MD [address] [place] [address], [place] [address] documented as of this encounter Visit Diagnoses Not on filedocumented in this encounter Care Teams Printer Machine Relationship Specialty Start Date End Date Tomas Hyman MD [address] [place] [address] PCP - General Family Medicine 12/31/13 05/09/18 Isidro Heredia MD Rheumatology 02/09/11 documented as of this encounter
--- OUTSIDE RECORDS SUMMARY | 2024-05-03 09:08 | XMS_ITS | Encounter Summary ---
Author Organization [facility] Address [address] [facility] [place] [address] Care Team Providers Care Transport Corps Officer Name Role Phone Isidro Heredia MD Unavailable [phone] Tomas Hyman MD Primary Care Provider [phone] Reason for Visit * Reason Onset Date Comments Letter for School or Work 03/13/2014 Encounter Details Date Type Department Care Team (Late st Contact Info) Description 03/13/2014 Telephone [facility] - Rheumatology [address] [place] [address] Isidro Heredia MD [address] [place] [address] Letter for School or Work Social [...] 3:26 PM CST Informed pt of message MANAGER * Telephone Encounter - Rea Hagan MA - 03/13/2014 3:18 PM CST Please let pt know his letter will be at the front office medical assistant for picker feeder. MANAGER * Telephone Encounter - Hai Rodriguezdoreen - 03/13/2014 2:32 PM CST wrote letter for pt's employer, but it didn't state that it was related to RA. Pt needs a revised letter that states pt's condition is related to his RA. Pt notes he wants to picker feeder revised letter on 03/17/14. Please call with any questions at work number if calling within next couple of hours; otherwise call pt on mobile number. MANAGER documented in this encounter Plan of Treatment Upcoming Encounters Date Type Department Care Team (Late st Contact Info) Description 06/03/2024 1:00 PM SEO MANAGER Appointment [facility] - Rheumatology [address] [place] [address] 06/03/2024 2:00 PM SEO MANAGER Office Visit [facility] - Rheumatology [address] [place] [address] Gloria Smith MD [address] [place] [phone] documented as of this encounter Visit Diagnoses Not on filedocumented in this encounter Care Teams Transport Corps Officer Relationship Specialty Start Date End Date Tomas Hyman MD [address] [facility] [place] [address] PCP - General Family Medicine 12/31/13 05/09/18 Isidro Heredia MD Rheumatology 02/09/11 documented as of this encounter
--- OUTSIDE RECORDS SUMMARY | 2024-05-03 09:08 | XMS_ITS | Encounter Summary ---
Author Organization [facility] Address [address] [place] [address] Care Team Providers Care Interior Design Instructor Name Role Phone Isidro Heredia MD Unavailable [phone] Tomas Hyman MD Primary Care Provider [phone] Encounter Details Date Type Department Care Team (Latest Contact Info) Description 03/17/2014 9:10 AM HAY SORTER - 03/17/2014 11:59 PM HAY SORTER Hospital Encounter [facility] Pain Care [address] [place] [address] [place] [address] [place] [phone] Discharge Disposition: Home or Self Care Social [...] Comments Blood Pressure 148/91 03/17/2014 9:46 AM HAY SORTER Pulse 87 03/17/2014 9:46 AM HAY SORTER Temperature - - Respiratory Rate 16 03/17/2014 9:46 AM HAY SORTER Oxygen Saturation 96% 03/17/2014 9:46 AM HAY SORTER Inhaled Oxygen Concentration - - Weight - - Height - - Body Mass Index - - documented in this encounter Discharge Instructions * Patient Instructions* Nena Pond RN - 03/17/2014 9:20 AM HAY SORTER [facility] Procedure Center Pain Discharge Instructions Selective Epidural [...] headache, or any other problems, please call [phone] or after hours callDr. Mirza at [phone] and tell them your physician's name. The exchange will alert the physician hydrogen plant operations manager. If sedation is given: No sedation given. For Your Next Visit: No additional instructions. Other Instructions: May remove band-aid in 12 Hours. Return in one week for TFE #3. Patient Signature: Date: RN Signature: Date: SORTER documented in this encounter Medications at Time of Discharge Medication Sig Dispensed Refills Start Date End Date Xcgxiieiprs-Euxyuzvsj-Nw t C-Mn (GLUCOSAMINE CHONDR 1500 COMPLX PO) [...] (PERCOCET) 5-325 MG tabletIndications:Rheuma toid arthritis(714.0) ([facility]) Take 1 Tab by mouth every 6 [...] identified, and marked by Dr. Mirza. Responsible vending route driver is not needed due to the [...] Add Levels Lumb/Sac, Fluoro. Alejandro Mirza MD SORTER documented in this encounter Plan of Treatment Upcoming Encounters Date Type Department Care Team (Late st Contact Info) Description 06/03/2024 1:00 PM HAY SORTER Appointment [facility] - Rheumatology [address] [place] [address] [phone] 06/03/2024 2:00 PM HAY SORTER Office Visit [facility] - Rheumatology [address] [place] [address] Gloria Smith MD [address] [place] [phone] documented as of this encounter Procedures Procedure Name Priority Date/Time Associated Diagnosis Comments PAIN MANAGEMENT PROCEDURE TIME Routine 03/17/2014 9:43 AM HAY SORTER Displacement Of Lumbar Intervertebral Disc Without Myelopathy Thoracic or lumbosacral neuritis or radiculitis, unspecified documented in this encounter Results * PAIN MANAGEMENT PROCEDURE TIME (03/17/2014 9:43 AM HAY SORTER) Anatomical Region Laterality Modality X-Ray Angiograph y Narrative 03/17/2014 10:14 AM HAY SORTER Alejandro Mirza MD ? 03/17/2014 10:14 AM [...] identified, and marked by Dr. Mirza. ??Responsible vending route driver is not needed due to the [...] Admin. by Other Provider 03/17/2014 9:34 AM HAY SORTER 10 mg lidocaine (XYLOCAINE MPF) 1 % injection Infiltration, ONCE, 1 dose, On Sun03/17/14 at 0945 $ Admin. by Other Provider 03/17/2014 9:34 AM HAY SORTER 5 mL documented in this encounter Care Teams Interior Design Instructor Relationship Specialty Start Date End Date Tomas Hyman MD [address] [facility] [address] [place] [address] PCP - General Family Medicine 12/31/13 05/09/18 Isidro Heredia MD Rheumatology 02/09/11 documented as of this encounter
--- OUTSIDE RECORDS SUMMARY | 2024-05-03 09:08 | XMS_ITS | Encounter Summary ---
Author Organization [facility] Address [address] [place] [address] Care Team Providers Care School Principal Name Role Phone Isidro Heredia MD Unavailable [phone] Tomas Hyman MD Primary Care Provider [phone] Reason for Visit * Treatment (Routine) - Closed Specialty Diagnoses / Procedures Referred By Contsarahi t Referred To Contact Pain Management Diagnoses Displacement of lumbar intervertebral disc without myelopathy Thoracic or lumbosacral neuritis or radiculitis, unspecified Procedures TN INJ,FORAMEN,L/S,1 LEVEL TN INJ,FORAMEN,L/S,[place] [address] [address] [facility] Pain Care [address] [place] [address] Referral ID Status Reason Start Date Expiration Date Visits Re quested Visits Authorized [id number] Closed 03/10/2014 09/06/2014 6 6 Encounter Details Date Type Department Care Team (Latest Contact Info) Description 03/10/2014 10:18 AM CNA GNA Hospital Encounter [facility] Pain Care [address] [place] [address] [place] [address] [address] Discharge Disposition: Home or Self [...] Sig Dispensed Refills Start Date End Date Sjzestrzseb-Maufijhvs-Br t C-Mn (GLUCOSAMINE CHONDR 1500 COMPLX PO) [...] st Contact Info) Description 06/03/2024 1:00 PM CNA GNA Appointment [facility] - Rheumatology [address] [place] [address] [phone] 06/03/2024 2:00 PM CNA GNA Office Visit [facility] - Rheumatology [address] [place] [address] Gloria Smith MD [address] [place] [address] [phone] documented as of this encounter Visit Diagnoses Not on filedocumented in this encounter Care Teams School Principal Relationship Specialty Start Date End Date Tomas Hyman MD [address] [facility] [address] [place] [address] PCP - General Family Medicine 12/31/13 05/09/18 Isidro Heredia MD Rheumatology 02/09/11 documented as of this encounter
--- OUTSIDE RECORDS SUMMARY | 2024-05-03 09:08 | XMS_ITS | Encounter Summary ---
Author Organization [facility] Address [address] [facility] [place] [address] Care Team Providers Care Radiology Manager Name Role Phone Isidro Heredia MD Unavailable [phone] Tomas Hyman MD Primary Care Provider [phone] Reason for Visit * Reason Onset Date Comments Follow-up 01/05/2014 Encounter Details Date Type Department Care Team (Late st Contact Info) Description 01/05/2014 Telephone [facility] - Rheumatology [address] [place] [address] Isidro Heredia MD [address] [place] [address] Follow-up Social History Tobacco Use Types [...] Contact Info) Description 06/03/2024 1:00 PM SYSTEM ARCHIVE ANALYST Appointment [facility] - Rheumatology [address] [place] [address] 06/03/2024 2:00 PM SYSTEM ARCHIVE ANALYST Office Visit [facility] - Rheumatology [address] [place] [address] Gloria Smith MD [address] [place] [phone] documented as of this encounter Visit Diagnoses Not on filedocumented in this encounter Care Teams Radiology Manager Relationship Specialty Start Date End Date Tomas Hyman MD [address] [facility] [address] [place] [address] PCP - General Family Medicine 12/31/13 05/09/18 Isidro Heredia MD Rheumatology 02/09/11 documented as of this encounter
--- OUTSIDE RECORDS SUMMARY | 2024-05-03 09:08 | XMS_ITS | Encounter Summary ---
Author Organization [facility] Address [address] [place] [address] Care Team Providers Care Investigative Writer Name Role Phone Isidro Heredia MD Unavailable [phone] Tomas Hyman MD Primary Care Provider Reason for Visit * Reason Comments Rheumatoid Arthritis * Evaluate & Treat (Routine) - Closed Specialty Diagnoses / Procedures Referred By Lawrence shah Referred To Contact Diagnoses Rheumatoid arthritis(714.0) (HCC) Procedures DE OFFICE VISIT DURING HOURS Tomas Hyman MD [address] [facility] [address] [place] [address] Isidro Heredia MD [address] [place] [address] Referral ID Status Reason Start Date Expiration Date Visits Re quested Visits Authorized [id number] Closed 02/10/2014 02/10/2015 6 6 Encounter Details Date Type Department Care Team (Late st Contact Info) Description 03/12/2014 1:45 PM VAT CLEANER Office Visit [facility] Medical [facility] - Rheumatology [address] [place] [address] Isidro Heredia MD [address] [place] [address] Chronic pain syndrome (Primary Dx); Rheumatoid [...] Referral given to eye doctor Dr Pena CLEANER * Isidro Heredia MD - 03/12/2014 2:38 [...] PO) Take by mouth once daily. ??? Ncndbmyojtf-Nevstjesn-Xuo C-Mn (GLUCOSAMINE CHONDR 1500 COMPLX PO) Take [...] Follow up in office in 4 weeks CLEANER documented in this encounter Plan of Treatment Upcoming Encounters Date Type Department Care Team (Late st Contact Info) Description 06/03/2024 1:00 PM VAT CLEANER Appointment [facility] - Rheumatology [address] [place] [address] 06/03/2024 2:00 PM VAT CLEANER Office Visit [facility] - Rheumatology [address] [place] [address] Gloria Smith MD [address] [place] [phone] documented as of this encounter Visit Diagnoses Diagnosis Chronic pain syndrome- Primary Rheumatoid arthritis(714.0) (HCC) Rheumatoid arthritis Chronic LBP Lumbago documented in this encounter Care Teams Investigative Writer Relationship Specialty Start Date End Date Tomas Hyman MD [address] [facility] [address] [place] [address] PCP - General Family Medicine 12/31/13 05/09/18 Isidro Heredia MD Rheumatology 02/09/11 documented as of this encounter
--- OUTSIDE RECORDS SUMMARY | 2024-05-03 09:08 | XMS_ITS | Encounter Summary ---
Author Organization [facility] Address [address] [facility] [place] [address] Care Team Providers Care Television Production Clerk Name Role Phone Nolberto Nicole MD Primary Care Provider [phone] Isidro Heredia MD Unavailable [phone] Encounter Details Date Type Department Care Team (Late st Contact Info) Description 12/12/2013 Orders Only [facility] Medical [facility] - Rheumatology [address] [place] [address] Isidro Heredia MD [address] [place] [address] Other and unspecified hyperlipidemia Social History [...] Contact Info) Description 06/03/2024 1:00 PM MANAGER EDUCATION Appointment [facility] - Rheumatology [address] [place] [address] [phone] 06/03/2024 2:00 PM MANAGER EDUCATION Office Visit [facility] - Rheumatology [address] [place] [address] Gloria Smith MD [address] [place] [phone] documented as of this encounter Procedures [...] PM CDT Narrative Resulting Agency Comment [facility] [address] [facility] ??[facility] [phone] Isidro Heredia MD LAB - CHEMISTRY ORD ERABLES [facility] INSURANCE BILL documented in this encounter Visit Diagnoses Diagnosis Other and unspecified hyperlipidemia- Primary documented in this encounter Care Teams Television Production Clerk Relationship Specialty Start Date End Date Nolberto Nicole MD PCP - General 07/21/08 12/30/13 Isidro Heredia MD Rheumatology 02/09/11 documented as of this encounter
--- OUTSIDE RECORDS SUMMARY | 2024-05-03 09:08 | XMS_ITS | Encounter Summary ---
Author Organization [facility] Address [address] [facility] [place] [address] Care Team Providers Care Microfiche Camera Operator Name Role Phone Nolberto Nicole MD Primary Care Provider [phone] Isidro Heredia MD Unavailable Reason for Visit * Reason Onset Date Comments Encounter Opened In Error 09/04/2013 Encounter Details Date Type Department Care Team (Late st Contact Info) Description 09/04/2013 Orders Only [facility] Medical [facility] - Rheumatology [address] [place] [address] Isidro Heredia MD [address] [place] [address] ERRONEOUS ENCOUNTER--DISREGARD Social History Tobacco Use [...] st Contact Info) Description 06/03/2024 1:00 PM WILLOW MACHINE OPERATOR Appointment [facility] - Rheumatology [address] [place] [address] 06/03/2024 2:00 PM WILLOW MACHINE OPERATOR Office Visit [facility] - Rheumatology [address] [place] [address] Glroia Smith MD [address] [place] [phone] documented as of this encounter Visit Diagnoses Diagnosis ERRONEOUS ENCOUNTER--DISREGARD- Primary documented in this encounter Care Teams Microfiche Camera Operator Relationship Specialty Start Date End Date Nolberto Nicole MD PCP - General 07/21/08 12/30/13 Isidro Heredia MD Rheumatology 02/09/11 documented as of this encounter
--- OUTSIDE RECORDS SUMMARY | 2024-05-03 09:08 | XMS_ITS | Encounter Summary ---
Author Organization [facility] Address [address] [facility] [address] Care Team Providers Care Rehab Care Assistant Name Role Phone Nolberto Nicole MD Primary Care Provider [phone] Isidro Heredia MD Unavailable [phone] Reason for Visit * Reason Comments Refill Request Encounter Details Date Type Department Care Team (Late Contact Info) Description 07/17/2013 Refill [facility] - Rheumatology [address] [place] [address] Isidro Heredia MD [address] [place] [address] Refill Request Social History Tobacco Use [...] (Late Contact Info) Description 06/03/2024 1:00 PM CORPORATE RISK ANALYST Appointment [facility] - Rheumatology [address] [place] [address] 06/03/2024 2:00 PM CORPORATE RISK ANALYST Office Visit [facility] - Rheumatology [address] [place] [address] Gloria Smith MD [address] [place] [address] [place] [phone] documented as of this encounter Visit Diagnoses Not on filedocumented in this encounter Care Teams Rehab Care Assistant Relationship Specialty Start Date End Date Nolberto Nicole MD PCP - General 07/21/08 12/30/13 Isidro Heredia MD Rheumatology 02/09/11 documented as of this encounter
--- OUTSIDE RECORDS SUMMARY | 2024-05-03 09:09 | XMS_ITS | Encounter Summary ---
Author Organization [facility] Address [address] [facility] [place] [address] Care Team Providers Care Jewel Hole Finish Opener Name Role Phone Nolberto Nicole MD Primary Care Provider [phone] Isidro Heredia MD Unavailable [phone] Tomas Hyman MD Primary Care Provider [phone] Encounter Details Date Type Department Care Team (Late st Contact Info) Description 01/09/2013 Orders Only [facility] - Rheumatology [address] [place] [address] Carlos Foreman RN Social History Tobacco [...] (Late Contact Info) Description 06/03/2024 1:00 PM PARTS DATA WRITER Appointment [facility] - Rheumatology [address] [place] [address] 06/03/2024 2:00 PM PARTS DATA WRITER Office Visit [facility] - Rheumatology [address] [place] [address] Gloria Smith MD [address] [place] [phone] documented as of this encounter Visit Diagnoses Not on filedocumented in this encounter Care Teams Jewel Hole Finish Opener Relationship Specialty Start Date End Date Nolberto Nicole MD PCP - General 07/21/08 12/30/13 Tomas Hyman MD [address] [facility] [address] [place] [address] PCP - General Family Medicine 12/31/13 05/09/18 Isidro Heredia MD Rheumatology 02/09/11 documented as of this encounter
--- OUTSIDE RECORDS SUMMARY | 2024-05-03 09:09 | XMS_ITS | Encounter Summary ---
Author Organization [facility] Address [address] [place] [address] Care Team Providers Care Bale Coverer Name Role Phone Nolberto Nicole MD Primary Care Provider Isidro Heredia MD Unavailable [phone] Reason for Visit * Reason Comments Rheumatoid Arthritis * Consult, Test & Treat (Routine) - Closed Specialty Diagnoses / Procedures Referred By Contsarahi t Referred To Contact Diagnoses Rheumatoid arthritis(714.0) (HCC) Procedures [place] OFFICE VISIT DURING HOURS Nolberto Nicole MD 0 [place] [address] Isidro Heredia MD [address] [place] [address] Referral ID Status Reason Start Date Expiration Date Visits Re quested Visits Authorized [id number] Closed 03/14/2013 09/11/2013 1 6 Encounter Details Date Type Department Care Team (Late st Contact Info) Description 05/12/2013 1:00 PM FIRE INVESTIGATOR Office Visit [facility] - Rheumatology [address] [place] [address] Isidro Heredia MD [address] [place] [address] Rheumatoid arthritis (HCC) (Primary Dx); Chronic [...] Comments Blood Pressure 138/89 05/12/2013 12:57 PM FIRE INVESTIGATOR Pulse 81 05/12/2013 12:57 PM FIRE INVESTIGATOR Temperature - - Respiratory Rate - - Oxygen Saturation - - Inhaled Oxygen Concentration - - Weight 113.4 kg (250 lb) 05/12/2013 12:57 PM FIRE INVESTIGATOR Height - - Body Mass Index 35.87 05/12/2013 12:03 PM FIRE INVESTIGATOR documented in this encounter Progress Notes * [...] Active Take by mouth once daily. ??? Lshjcdvpipn-Iyhdoozbx-Cqa C-Mn (GLUCOSAMINE CHONDR 1500 COMPLX PO) Active [...] bursa.. Patient tolerated procedure well without complications. INVESTIGATOR documented in this encounter Plan of Treatment Upcoming Encounters Date Type Department Care Team (Late st Contact Info) Description 06/03/2024 1:00 PM FIRE INVESTIGATOR Appointment [facility] - Rheumatology [address] [place] [address] [phone] 06/03/2024 2:00 PM FIRE INVESTIGATOR Office Visit [facility] - Rheumatology [address] [place] [address] [phone] Gloria Smith MD [address] [place] [phone] documented as of this encounter Visit Diagnoses Diagnosis Rheumatoid arthritis(714.0) ([facility])- Primary Rheumatoid arthritis Chronic pain syndrome Subacromial bursitis Other specified disorders of rotator cuff syndrome of shoulder and allied disorders documented in this encounter Care Teams Bale Coverer Relationship Specialty Start Date End Date Nolberto Nicole MD PCP - General 07/21/08 12/30/13 Isidro Heredia MD Rheumatology 02/09/11 documented as of this encounter
--- OUTSIDE RECORDS SUMMARY | 2024-05-03 09:09 | XMS_ITS | Encounter Summary ---
Author Organization [facility] Address [address] [facility] [place] [address] Care Team Providers Care Ware Dresser Name Role Phone Nolberto Nicole MD Primary Care Provider [phone] Isidro Heredia MD Unavailable [phone] Reason for Visit * Reason Comments Rheumatoid Arthritis Pain Joint upper and lower extr emities all over especially the rt hand and knees * Evaluate & Treat (Routine) - Closed Specialty Diagnoses / Procedures Referred By Lawrence t Referred To Contact Diagnoses Rheumatoid arthritis(714.0) (HCC) Procedures [place] OFFICE VISIT DURING HOURS Nolberto Nicole MD 0 [place] [address] Isidro Heredia MD [address] [place] [address] Referral ID Status Reason Start Date Expiration Date Visits Re quested Visits Authorized [id number] Closed 08/15/2012 02/11/2013 1 5 Encounter Details Date Type Department Care Team (Late st Contact Info) Description 02/10/2013 5:00 PM CDT Office Visit [facility] [employer] [facility] - Rheumatology [address] [place] [address] Isidro Heredia MD [address] [place] [address] Rheumatoid arthritis (HCC) (Primary Dx); [...] Active Take by mouth once daily. ??? Bgtmzoktkib-Zdwjjgpvz-Tva C-Mn (GLUCOSAMINE CHONDR 1500 COMPLX PO) Active [...] Contact Info) Description 06/03/2024 1:00 PM WATER SUPPLY ENGINEER Appointment [facility] - Rheumatology [address] [place] [address] [phone] 06/03/2024 2:00 PM WATER SUPPLY ENGINEER Office Visit [facility] - Rheumatology [address] [place] [address] [phone] Gloria Smith MD [address] [place] [phone] documented as of this encounter Procedures Procedure [...] (Smooth) ? Histone ? Speckled ? Sm, COORDINATE MEASURING MACHINE PROGRAMMER, SCL-70, ??SLE,MCTD,Scleroderma,Sjogrens ? SS-A/SS-B ? Nucleolar ?SCL-70, PM-1/SCL ??High titers Scleroderma Poly- ? myositis/Scleroderma Overlap ? Centromere ?? Centromere ?PSS w/Crest syndrome variable ?? 02/10/2013 5:37 PM CDT 02/10/2013 7:03 PM CDT Narrative Resulting Agency Comment [facility] [address] [place] [address] ??Critical access hospital [phone] Isidro Heredia MD LAB - PATHOLOGY/CYT OLOGY [...] PM CDT Narrative Resulting Agency Comment [facility] [address] ??[facility] [phone] Isidro Heredia MD LAB - SEROLOGY ORDE RABDO Performing Organization Address [facility]/ZIP Co de Phone Number [facility] ACCOUNT BILL * RHEUMATOID FACTOR BLOOD QUANTITATIVE (02/10/2013 5:37 PM CDT) Rheumatoid Factor 9.6 0.0 - 13.9 IU/mL [facility] ACCOUNT BILL Blood specimen (specimen) BLOOD SPECIMEN / Unknown 02/10/2013 5:37 PM CDT 02/10/2013 7:03 PM CDT Narrative Resulting Agency Comment [facility] [address] [place] [address] ??Critical access hospital [phone] Isidro Heredia MD LAB - CHEMISTRY ORD ERABLES Performing Organization Address [facility] de Phone Number [facility] ACCOUNT BILL * ROSA BLOOD SCREEN W/REFLEX TITER (02/10/2013 5:37 PM CDT) ROSA See patterns [facility] ACCOUNT BILL Comment: ?Negative ?? <1:80 ?Borderline ??1:80 ?Positive ?? >1:80 Blood specimen (specimen) BLOOD SPECIMEN / Unknown 02/10/2013 5:37 PM CDT 02/10/2013 7:03 PM CDT Narrative Resulting Agency Comment [facility] [address] ??Critical access hospital [phone] Isidro Heredia MD LAB - CHEMISTRY ORD ERABLES Performing Organization Address [facility] Co de Phone Number [facility] ACCOUNT BILL * SED RATE WESTERGREN (02/10/2013 5:33 PM CDT) Erythrocyte Sedimentation Rate Westergren 26 0 - 30 mm/hr [facility] ACCOUNT BILL Blood specimen (specimen) BLOOD SPECIMEN / Unknown 02/10/2013 5:33 PM CDT 02/10/2013 7:03 PM CDT Narrative Resulting Agency Comment [facility] [address] ??Critical access hospital [phone] Isidro Heredia MD LAB - HEMATOLOGY OR DERABLES Performing Organization Address [facility] de Phone Number [facility] ACCOUNT BILL * C-REACTIVE PROTEIN (02/10/2013 5:33 PM CDT) C-Reactive Protein 4.9 0.0 - 4.9 mg/L [facility] ACCOUNT BILL Blood specimen (specimen) BLOOD SPECIMEN / Unknown 02/10/2013 5:33 PM CDT 02/10/2013 7:03 PM CDT Narrative Resulting Agency Comment [facility] [address] ??Critical access hospital [phone] Isidro Heredia MD LAB - CHEMISTRY ORD ERABLES Performing Organization Address [facility] Co de Phone [...] CDT Narrative Resulting Agency Comment [facility] [address] ??Critical access hospital [phone] Isidro Heredia MD LAB - CHEMISTRY ORD [...] PM CDT Narrative Resulting Agency Comment [facility] [place] [id number] [facility] ??Critical access hospital [phone] Isidro Heredia MD LAB - HEMATOLOGY OR DERABLES [facility] ACCOUNT BILL documented in this encounter Visit Diagnoses Diagnosis Rheumatoid arthritis(714.0) (HCC)- Primary Rheumatoid arthritis Osteopenia Disorder of bone and cartilage, unspecified Chronic pain syndrome documented in this encounter Care Teams Ware Dresser Relationship Specialty Start Date End Date Nolberto Nicole MD PCP - General 07/21/08 12/30/13 Isidro Heredia MD Rheumatology 02/09/11 documented as of this encounter
--- OUTSIDE RECORDS SUMMARY | 2024-05-03 09:09 | XMS_ITS | Encounter Summary ---
Author Organization [facility] Address [address] [facility] [place] [address] Care Team Providers Care Pigskin Trimmer Name Role Phone Nolberto Nicole MD Primary Care Provider Isidro Heredia MD Unavailable [phone] Reason for Visit * Reason Comments Rheumatoid Arthritis pain scle:8/10 am s tiffness: no tolerating meds well no fever/chill Shoulder Pain pain scle:9/10 Swelling Hand with shooting pain Pain Knee obdulia with shooting pa in * Evaluate & Treat (Routine) - Closed Specialty Diagnoses / Procedures Referred By Lawrence shah Referred To Contact Diagnoses Rheumatoid arthritis(714.0) ([facility]) Procedures OR OFFICE VISIT DURING HOURS Nolberto Nicole MD 0 [place] [address] Isidro Heredia MD 48 [place] [address] Referral ID Status Reason Start Date Expiration Date Visits Re quested Visits Authorized [id number] Closed 08/15/2012 02/11/2013 1 5 Encounter Details Date Type Department Care Team (Late st Contact Info) Description 12/09/2012 5:00 PM CDT Office Visit [facility] - Rheumatology [address] [place] [address] Isidro Heredia MD [facility] [place] [address] Rheumatoid arthritis (HCC) (Primary Dx); Chronic pain [...] PO) Take by mouth once daily. ??? Wqxorttljbc-Gqzzebguc-Csz C-Mn (GLUCOSAMINE CHONDR 1500 COMPLX PO) Take [...] Contact Info) Description 06/03/2024 1:00 PM SENIOR PORTFOLIO MANAGER Appointment [facility] - Rheumatology [address] [place] [address] [phone] 06/03/2024 2:00 PM SENIOR PORTFOLIO MANAGER Office Visit [facility] - Rheumatology [address] [place] [address] [phone] Gloria Smith MD [address] [place] [phone] documented as of this encounter Procedures Procedure [...] PM CDT Narrative Resulting Agency Comment [facility] [address] ??[facility] [phone] Isidro Heredia MD LAB - HEMATOLOGY OR DERABLES [facility] ACCOUNT BILL * C-REACTIVE PROTEIN (12/09/2012 5:49 PM CDT) C-Reactive Protein 2.9 0.0 - 4.9 mg/L [facility] ACCOUNT BILL Blood specimen (specimen) BLOOD SPECIMEN / Unknown 12/09/2012 5:49 PM CDT 12/09/2012 7:39 PM CDT Narrative Resulting Agency Comment [facility] [address] ??[facility] [phone] Isidro Heredia MD LAB - CHEMISTRY ORD ERABLES Performing Organization Address City/[facility]/ZIP Co de Phone Number [facility] ACCOUNT [...] PM CDT Narrative Resulting Agency Comment [facility] [place] [id number] ??[facility] [phone] Isidro Heredia MD LAB - CHEMISTRY ORD [...] PM CDT Narrative Resulting Agency Comment [facility] [address] ??[facility] [phone] Isidro Heredia MD LAB - HEMATOLOGY OR DERABLES [facility] ACCOUNT BILL documented in this encounter Visit Diagnoses Diagnosis Rheumatoid arthritis(714.0) (HCC)- Primary Rheumatoid arthritis Chronic pain syndrome documented in this encounter Care Teams Pigskin Trimmer Relationship Specialty Start Date End Date Nolberto Nicole MD PCP - General 07/21/08 12/30/13 Isidro Heredia MD Rheumatology 02/09/11 documented as of this encounter
--- OUTSIDE RECORDS SUMMARY | 2024-05-03 09:09 | XMS_ITS | Encounter Summary ---
Author Organization [facility] Address [address] [facility] [place] [address] Care Team Providers Care Supervisor Pipe Finishing Name Role Phone Nolberto Nicole MD Primary Care Provider Isidro Heredia MD Unavailable [phone] Reason for Visit * Treatment (Routine) - Closed Specialty Diagnoses / Procedures Referred By Lawrence shah Referred To Contact Infusion Therapy Nurse Diagnoses Rheumatoid arthritis(714.0) ([facility]) Procedures AK INJECTION RITUXIMAB 100 MG Nolberto Nicole MD [address] [facility] [place] [address] Referral ID Status Reason Start Date Expiration Date Visits Re quested Visits Authorized [id number] Closed 04/30/2012 04/29/2013 1 4 Encounter Details Date Type Department Care Team (Late st Contact Info) Description 01/09/2013 11:30 AM CDT - 01/09/2013 11:59 PM CDT Hospital Encounter [facility] - Rheumatology [address] [place] [address] Isidro Heredia MD [address] [place] [address] Discharge Disposition: Home or Self Care [...] Foreman RN - 01/09/2013 12:42 PM CDT DC Rheumatology Post Infusion instructions You have [...] through Sunday 9-5 call the office at [phone] After hours or on the weekend call the exchange at [phone] If you have had lab work done [...] Sig Dispensed Refills Start Date End Date Ethvvwyotzy-Zepkortja-U it C-Mn (GLUCOSAMINE CHONDR 1500 COMPLX PO) [...] - 01/09/2013 12:38 PM CDT JOSE Deng [id number] 01/09/2013 Diagnosis: Rheumatoid arthritis [714.0]. Patient questionnaire [...] st Contact Info) Description 06/03/2024 1:00 PM EMS DIRECTOR Appointment [facility] - Rheumatology [address] [place] [address] [phone] 06/03/2024 2:00 PM EMS DIRECTOR Office Visit [facility] - Rheumatology [address] [place] [address] Gloria Smith MD [address] [place] [phone] documented as of this encounter Visit Diagnoses Not on filedocumented in this encounter Administered Medications Inactive Administered Medications - up to 3 most recent administrations Medication Order MAR Action Action Date Dose Rate Site diphenhydrAMINE (BENADRYL) injection 50 mg 50 mg, Intravenous, ONCE, 1 dose, On [facility] 01/09/13 at 1200, Max intravenous rate = 25 mg/min $ Given 01/09/2013 12:00 PM CDT 50 mg methylPREDNISolone sod succ (Solu-MEDROL) injection 125 mg 125 mg, Intravenous, ONCE, 1 dose, On [facility] 01/09/13 at 1215 $ Given 01/09/2013 12:05 PM CDT 125 mg rituximab (RITUXAN) 1,000 mg in NaCl 0.9 % infusion 1,000 mg, Intravenous, ONCE, 1 dose, On [facility] 01/09/13 at 1145, Stable for 24 hours refrigerate; 48 hours at room temperature . WASTE DISPOSAL INSTRUCTIONS: Chemo Bin Disposal required. . $ Given 01/09/2013 12:35 PM CDT 1,000 mg documented in this encounter Care Teams Supervisor Pipe Finishing Relationship Specialty Start Date End Date Nolberto Nicole MD PCP - General 07/21/08 12/30/13 Isidro Heredia MD Rheumatology 02/09/11 documented as of this encounter
--- OUTSIDE RECORDS SUMMARY | 2024-05-03 09:09 | XMS_ITS | Encounter Summary ---
Author Organization [facility] Address [address] [place] [address] Care Team Providers Care Facility Planner Name Role Phone Nolberto Nicole MD Primary Care Provider Isidro Heredia MD Unavailable Reason for Referral * - Closed Specialty Diagnoses / Procedures Referred By Contac t Referred To Contact Diagnoses Pleurisy Abdominal pain Procedures CT THORAX ABDOMEN PELVIS W CONT Isidro Heredia MD [address] [place] [address] Referral ID Status Reason Start Date Expiration Date Visits Re quested Visits Authorized [id number] Closed 03/25/2013 09/21/2013 1 1 ETING ANALYTICS LEAD Reason for Visit * Reason Comments Rheumatoid Arthritis Pain Side rt upper side. burni ng sensations. he wants liver checked Rash upper back * Consult, Test & Treat (Routine) - Closed Specialty Diagnoses / Procedures Referred By Contsarahi t Referred To Contact Diagnoses Rheumatoid arthritis(714.0) ([facility]) Procedures [place] OFFICE VISIT DURING HOURS Nolberto Nicole MD [address] [place] [address] Isidro Heredia MD [address] [place] [address] Referral ID Status Reason Start Date Expiration Date Visits Re quested Visits Authorized [id number] Closed 03/14/2013 09/11/2013 1 6 Encounter Details Date Type Department Care Team (Late st Contact Info) Description 03/21/2013 1:00 PM MARKETING ANALYTICS LEAD Office Visit [facility] - Rheumatology [address] [place] [address] Isidro Heredia MD [address] [place] [address] Rheumatoid arthritis (HCC) (Primary Dx); Pleurisy; Abdominal [...] Comments Blood Pressure 136/84 03/21/2013 1:02 PM MARKETING ANALYTICS LEAD Pulse 80 03/21/2013 1:02 PM MARKETING ANALYTICS LEAD Temperature - - Respiratory Rate - - Oxygen Saturation - - Inhaled Oxygen Concentration - - Weight 114.3 kg (252 lb) 03/21/2013 1:02 PM MARKETING ANALYTICS LEAD Height - - Body Mass Index 36.16 01/09/2013 11:48 AM CDT documented in this encounter Progress Notes * Rea Hagan MA - 04/07/2013 12:23 PM CSTQuick Note: Pt informed his lab results on 04/04/13 ETING ANALYTICS LEAD * Isidro Heredia MD - 03/28/2013 9:55 PM CSTQuick Note: All labs ok Ct chest nl Ct abd Diverticulosis in colon benign Rest of ct neg ETING ANALYTICS LEAD * Rea Hagan MA - 03/24/2013 9:16 AM CST Resulted the urine test ETING ANALYTICS LEAD * Isidro Heredia MD - 03/21/2013 1:38 [...] Active Take by mouth once daily. ??? Xuamejvgpzv-Fxewnqncy-Jyc C-Mn (GLUCOSAMINE CHONDR 1500 COMPLX PO) Active [...] Follow up in office in 4 weeks ETING ANALYTICS LEAD documented in this encounter Plan of Treatment Upcoming Encounters Date Type Department Care Team (Late st Contact Info) Description 06/03/2024 1:00 PM MARKETING ANALYTICS LEAD Appointment [facility] - Rheumatology [address] [place] [address] 06/03/2024 2:00 PM MARKETING ANALYTICS LEAD Office Visit [facility] - Rheumatology [address] [place] [address] Gloria Smith MD [address] [place] [phone] documented as of this encounter Procedures Procedure Name Priority Date/Time Associated Diagnosis Comments URINALYSIS AUTO - POINT OF CARE Routine 03/24/2013 9:16 AM MARKETING ANALYTICS LEAD Rheumatoid Arthritis (Hcc) C-REACTIVE PROTEIN Routine 03/21/2013 2: 22 PM MARKETING ANALYTICS LEAD Rheumatoid Arthritis (Hcc) ERYTHROCYTE SEDIMENTATION RATE Routine 03/21/2013 2:22 PM MARKETING ANALYTICS LEAD Rheumatoid Arthritis (Hcc) CBC W AUTO DIFFERENTIAL Routine 03/21/2013 2:22 PM MARKETING ANALYTICS LEAD Rheumatoid Arthritis (Hcc) COMPREHENSIVE METABOLIC PANEL Routine 03/21/2013 2:22 PM MARKETING ANALYTICS LEAD Rheumatoid Arthritis (Hcc) documented in this encounter Results * CT THORAX ABDOMEN PELVIS W CONT (03/25/2013 8:59 AM MARKETING ANALYTICS LEAD) Anatomical Region Laterality Modality Chest, Abdomen, Pelvis Computed Tomography 03/25/2013 11:5 3 AM MARKETING ANALYTICS LEAD Narrative 03/25/2013 11:57 AM MARKETING ANALYTICS LEAD Examination: CT chest with contrast. Indication for [...] CHEST PA AND LATERAL (03/24/2013 6:23 PM MARKETING ANALYTICS LEAD) Anatomical Region Laterality Modality Chest Other Narrative 03/24/2013 6:23 PM MARKETING ANALYTICS LEAD Isidro Heredia MD ? 03/24/2013 ??6:23 PM CXR: ??NAD Procedure Note Isidro Heredia MD - 03/24/2013 6:22 PM CST CXR: NAD Isidro Heredia MD DIAGNOSTIC IMAGING ORDERABLES * URINALYSIS AUTO - POINT OF CARE (03/24/2013 9:16 AM MARKETING ANALYTICS LEAD) Pathologist [facility] Clarity UA POCT Comment:creatine 100 mg/dl Color UA POCT yellow Leukocyte UA negative Negative Nitrite UA POCT negative Negative Urobilinogen UA POCT 0.1 - 1.0 EU/dL Protein UA POCT negative Negative pH UA 6.0 5.0 - 8.0 pH units Blood UA negative Negtive Specific [place] UA POCT 1.015 1.002 - 1.030 Ketone UA negative Negative Bilirubin UA POCT Negative Glucose UA negative Negative Urine specimen (specimen) URINE / Unknown Isidro Heredia MD LAB - POINT OF CARE ORDERABLES * SED RATE WESTERGREN (03/21/2013 2:22 PM MARKETING ANALYTICS LEAD) Pathologist [facility] Erythrocyte Sedimentation Rate Westergren 10 0 - 30 mm/hr [facility] ACCOUNT BILL Blood specimen (specimen) BLOOD SPECIMEN / Unknown 03/21/2013 2:22 PM MARKETING ANALYTICS LEAD 03/21/2013 4:07 PM MARKETING ANALYTICS LEAD Narrative Resulting Agency Comment [facility] [address] ??[facility] [phone] Isidro Heredia MD LAB - HEMATOLOGY OR DERABLES [facility] ACCOUNT BILL * (ABNORMAL) C-REACTIVE PROTEIN (03/21/2013 2:22 PM MARKETING ANALYTICS LEAD) C-Reactive Protein 6.7(H) 0.0 - 4.9 mg/L [facility] ACCOUNT BILL Blood specimen (specimen) BLOOD SPECIMEN / Unknown 03/21/2013 2:22 PM MARKETING ANALYTICS LEAD 03/21/2013 4:07 PM MARKETING ANALYTICS LEAD Narrative Resulting Agency Comment [facility] [address] ??[facility] [phone] Isidro Heredia MD LAB - CHEMISTRY ORD ERABLES [facility] ACCOUNT BILL * (ABNORMAL) COMPREHENSIVE METABOLIC PANEL (03/21/2013 2:22 PM MARKETING ANALYTICS LEAD) Glucose 112(H) 65 - 99 mg/dL [facility] [...] BLOOD SPECIMEN / Unknown 03/21/2013 2:22 PM MARKETING ANALYTICS LEAD 03/21/2013 4:07 PM MARKETING ANALYTICS LEAD Narrative Resulting Agency Comment [facility] [address] ??[facility] [phone] Isidro Heredia MD LAB - CHEMISTRY ORD ERABLES [facility] ACCOUNT BILL * (ABNORMAL) CBC W AUTO DIFFERENTIAL (03/21/2013 2:22 PM MARKETING ANALYTICS LEAD) WBC 10.6 3.4 - 10.8 x10E3/uL [facility] [...] BLOOD SPECIMEN / Unknown 03/21/2013 2:22 PM MARKETING ANALYTICS LEAD 03/21/2013 4:07 PM MARKETING ANALYTICS LEAD Narrative Resulting Agency Comment [facility] [address] ??[facility] [phone] Isidro Heredia MD LAB - HEMATOLOGY OR DERABLES [facility] ACCOUNT BILL documented in this encounter Visit Diagnoses Diagnosis Rheumatoid arthritis(714.0) (HCC)- Primary Rheumatoid arthritis Pleurisy Abdominal pain Pleurisy- Primary Pleurisy Abdominal pain documented in this encounter Care Teams Facility Planner Relationship Specialty Start Date End Date Nolberto Nicole MD PCP - General 07/21/08 12/30/13 Isidro Heredia MD Rheumatology 02/09/11 documented as of this encounter
--- OUTSIDE RECORDS SUMMARY | 2024-05-03 09:09 | XMS_ITS | Encounter Summary ---
Author Organization [facility] Address [address] [place] [address] Care Team Providers Care Retail Business Analyst Name Role Phone Nolberto Nicole MD Primary Care Provider [phone] Isidro Heredia MD Unavailable [phone] Encounter Details Date Type Department Care Team (Late Contact Info) Description 04/07/2013 Orders Only [facility] - Rheumatology [address] [place] [address] Mirela Rodrigez RN Rheumatoid arthritis (HCC) [...] (Late Contact Info) Description 06/03/2024 1:00 PM INFORMATION SECURITY DIRECTOR Appointment [facility] - Rheumatology [address] [place] [address] 06/03/2024 2:00 PM INFORMATION SECURITY DIRECTOR Office Visit [facility] - Rheumatology [address] [place] [address] Gloria Smith MD [address] [place] [phone] documented as of this encounter Visit Diagnoses Diagnosis Rheumatoid arthritis(714.0) ([facility])- Primary Rheumatoid arthritis documented in this encounter Care Teams Retail Business Analyst Relationship Specialty Start Date End Date Nolberto Nicole MD PCP - General 07/21/08 12/30/13 Isidro Heredia MD Rheumatology 02/09/11 documented as of this encounter
--- OUTSIDE RECORDS SUMMARY | 2024-05-03 09:09 | XMS_ITS | Encounter Summary ---
Author Organization [facility] Address [address] [place] [address] Care Team Providers Care Vector Control Assistant Name Role Phone Nolberto Nicole MD Primary Care Provider [phone] Isidro Heredia MD Unavailable [phone] Reason for Visit * Treatment (Routine) - Closed Specialty Diagnoses / Procedures Referred By Lawrence shah Referred To Contact Infusion Therapy Nurse Diagnoses Rheumatoid arthritis(714.0) ([facility]) Procedures [place] INJECTION TOCILIZUMAB 1 MG Isidro Heredia MD [address] [place] [address] Referral ID Status Reason Start Date Expiration Date Visits Re quested Visits Authorized [id number] Closed 05/01/2013 04/29/2014 1 12 Encounter Details Date Type Department Care Team (Late st Contact Info) Description 07/09/2013 1:30 PM CDT - 07/09/2013 11:59 PM CDT Hospital Encounter [facility] - Rheumatology [address] [place] [address] Isidro Heredia MD [address] [place] [address] Discharge Disposition: Home or Self [...] Foreman RN - 07/09/2013 2:04 PM CDT [place] Rheumatology Post Infusion instructions You [...] through Sunday 9-5 call the office at [phone] After hours or on the weekend call the exchange at [phone] If you have had lab work done [...] Sig Dispensed Refills Start Date End Date Qutzbzrzwky-Cydjislpy-Ad t C-Mn (GLUCOSAMINE CHONDR 1500 COMPLX PO) [...] - 07/09/2013 2:03 PM CDT JOSE Deng [id number] 07/09/2013 Diagnosis: Rheumatoid arthritis [714.0]. Patient questionnaire [...] st Contact Info) Description 06/03/2024 1:00 PM BAR MACHINE OPERATOR MULTIPLE SPINDLE Appointment [facility] - Rheumatology [address] [place] [address] 06/03/2024 2:00 PM BAR MACHINE OPERATOR MULTIPLE SPINDLE Office Visit [facility] - Rheumatology [address] [place], [place] [phone] Gloria Smith MD [address] [place] [phone] documented as of this encounter Visit Diagnoses [...] mL/hr documented in this encounter Care Teams Vector Control Assistant Relationship Specialty Start Date End Date Nolberto Nicole MD PCP - General 07/21/08 12/30/13 Isidro Heredia MD Rheumatology 02/09/11 documented as of this encounter
--- OUTSIDE RECORDS SUMMARY | 2024-05-03 09:09 | XMS_ITS | Encounter Summary ---
Author Organization [facility] Address [address] [place] [address] [place] [address] Care Team Providers Care Coning Machine Operator Name Role Phone Nolberto Nicole MD Primary Care Provider [phone] Isidro Heredia MD Unavailable [phone] Reason for Visit * Reason Onset Date Comments MEDICATION REFILL 06/25/2013 Encounter Details Date Type Department Care Team (Late st Contact Info) Description 06/25/2013 Refill [facility] Medical [facility] - Rheumatology [address] [place] [address] Isidro Heredia MD [address] [place] [address] MEDICATION REFILL Social History Tobacco Use [...] 9:23 AM CST Received a fax from [facility] requesting alternate cholesterol medication for Crestor. Crestor is not on formulary. Change to Zocor 20 mg daily. Faxed over to [phone] and received confirmation. SIS INSPECTOR documented in this encounter Plan of Treatment Upcoming Encounters Date Type Department Care Team (Late st Contact Info) Description 06/03/2024 1:00 PM CHASSIS INSPECTOR Appointment [facility] - Rheumatology [address] [place] [address] [phone] 06/03/2024 2:00 PM CHASSIS INSPECTOR Office Visit [facility] - Rheumatology [address] [place] [address] [phone] Gloria Smith MD [address] [place] [phone] documented as of this encounter Visit Diagnoses Not on filedocumented in this encounter Care Teams Coning Machine Operator Relationship Specialty Start Date End Date Nolberto Nicole MD PCP - General 07/21/08 12/30/13 Isidro Heredia MD Rheumatology 02/09/11 documented as of this encounter
--- OUTSIDE RECORDS SUMMARY | 2024-05-03 09:09 | XMS_ITS | Encounter Summary ---
Author Organization [facility] Address [address] [place] [place] [address] Care Team Providers Care Seat Joiner Name Role Phone Nolberto Nicole MD Primary Care Provider [phone] Isidro Heredia MD Unavailable Reason for Visit [...] shah Referred To Contact Diagnoses Rheumatoid arthritis(714.0) ([facility]) Procedures [place] OFFICE VISIT DURING HOURS Nolberto Nicole MD [address] [place] [address] Isidro Heredia MD [address] [place] [address] Referral ID Status Reason Start Date Expiration Date Visits Re quested Visits Authorized [id number] Closed 03/14/2013 09/11/2013 1 6 Encounter Details Date Type Department Care Team (Late st Contact Info) Description 06/10/2013 2:15 PM CARBON CUTTER Office Visit [facility] - Rheumatology [address] [place] [address] Isidro Heredia MD [address] [place] [address] Rheumatoid arthritis (HCC) (Primary Dx); Chronic pain [...] Comments Blood Pressure 130/80 06/10/2013 2:17 PM CARBON CUTTER Pulse 88 06/10/2013 2:17 PM CARBON CUTTER Temperature - - Respiratory Rate - - Oxygen Saturation - - Inhaled Oxygen Concentration - - Weight 113.4 kg (250 lb) 06/10/2013 2:17 PM CARBON CUTTER Height - - Body Mass Index 35.87 06/10/2013 2:00 PM CARBON CUTTER documented in this encounter Progress Notes * [...] Active Take by mouth once daily. ??? Muejlpautrt-Hjmsfmgmw-Vnp C-Mn (GLUCOSAMINE CHONDR 1500 COMPLX PO) Active [...] Follow up in office in 4 weeks ON CUTTER documented in this encounter Plan of Treatment Upcoming Encounters Date Type Department Care Team (Late st Contact Info) Description 06/03/2024 1:00 PM CARBON CUTTER Appointment [facility] - Rheumatology [address] [place] [address] [phone] 06/03/2024 2:00 PM CARBON CUTTER Office Visit [facility] - Rheumatology [address] [place] [address] [phone] Gloria Smith MD [address] [place] [phone] documented as of this encounter Visit Diagnoses Diagnosis Rheumatoid arthritis(714.0) (HCC)- Primary Rheumatoid arthritis Chronic pain syndrome Hyperlipidemia Other and unspecified hyperlipidemia documented in this encounter Care Teams Seat Joiner Relationship Specialty Start Date End Date Nolberto Nicole MD PCP - General 07/21/08 12/30/13 Isidro Heredia MD Rheumatology 02/09/11 documented as of this encounter
--- OUTSIDE RECORDS SUMMARY | 2024-05-03 09:09 | XMS_ITS | Encounter Summary ---
Author Organization [facility] Address [address] [place] [address] Care Team Providers Care Water Treatment Technician Name Role Phone Nolberto Nicole MD Primary Care Provider [phone] Isidro Heredia MD Unavailable [phone] Reason for Visit * Reason Onset Date Comments MEDICATION REFILL 03/17/2013 Encounter Details Date Type Department Care Team (Late st Contact Info) Description 03/17/2013 Refill [facility] Medical [facility] - Rheumatology [address] [place] [address] Isidro Heredia MD [address] [place] [address] MEDICATION REFILL Social History Tobacco Use [...] CST Informed pt of message for refill STICIAN * Telephone Encounter - Rea Hagan MA - 03/17/2013 2:54 PM CST This is ok. Mtx was sent to pharm. Can someone put in the reason for visit STICIAN * Telephone Encounter - Carey Loza - 03/17/2013 10:42 AM CST Patient is having issues with his referral to see the Doctor but needs a script [facility] for his methotrexate. STICIAN documented in this encounter Plan of Treatment Upcoming Encounters Date Type Department Care Team (Late st Contact Info) Description 06/03/2024 1:00 PM LOGISTICIAN Appointment [facility] - Rheumatology [address] [place] [address] 06/03/2024 2:00 PM LOGISTICIAN Office Visit [facility] - Rheumatology [address] [place] [address] Gloria Smith MD [address] [place] [phone] documented as of this encounter Visit Diagnoses Not on filedocumented in this encounter Care Teams Water Treatment Technician Relationship Specialty Start Date End Date Nolberto Nicole MD PCP - General 07/21/08 12/30/13 Isidro Heredia MD Rheumatology 02/09/11 documented as of this encounter
--- OUTSIDE RECORDS SUMMARY | 2024-05-03 09:09 | XMS_ITS | Encounter Summary ---
Author Organization [facility] Address [address] [place] [address] [place] [address] Care Team Providers Care Tapering Machine Operator Name Role Phone Nolberto Nicole MD Primary Care Provider [phone] Isidro Heredia MD Unavailable [phone] Reason for Visit * Reason Onset Date Comments Results 04/02/2013 Encounter Details Date Type Department Care Team (Late st Contact Info) Description 04/02/2013 Telephone [facility] Medical [facility] - Family Medicine [address] [place] [address] Isidro Heredia MD [address] [place] [address] Results Social History Tobacco Use Types [...] returned call on 04/04/13. Informed him per [facility], they due not allow phone in or fax scripts. Pt must bring in scripts. He given me [facility] number to send his rx over. Laterin the conversation, pt said to disregard calling in the prescriptions. He is feeling a lot better than before. He will call the office back if sx persist. CLAIMS ADJUSTER * Telephone Encounter - Rea Hagan MA - 04/04/2013 9:55 AM CST Lmr to call office with new pharm number CLAIMS ADJUSTER * Telephone Encounter - Rea Hagan MA - 04/03/2013 5:09 PM CST Informed pt per Dr Valiente results shows diverticulosis and its ok to restart infusion. Also he c/o side pain. Instruct to take Neurontin [address] Valiente. Pharm closed. He will call tomorrow with a local pharm number instead CLAIMS ADJUSTER * Telephone Encounter - Rea Hagan MA - 04/02/2013 4:22 PM CST This is noted. Results on Dr Valiente desk for review CLAIMS ADJUSTER * Telephone Encounter - Erika Julien - 04/02/2013 2:45 PM CST Pt wants his ct results , dr is holding his infusion till he finds out what is causing the pain CLAIMS ADJUSTER documented in this encounter Plan of Treatment Upcoming Encounters Date Type Department Care Team (Late st Contact Info) Description 06/03/2024 1:00 PM AUTO CLAIMS ADJUSTER Appointment [facility] - Rheumatology [address] [place] [address] 06/03/2024 2:00 PM AUTO CLAIMS ADJUSTER Office Visit [facility] - Rheumatology [address] [place] [address] [phone] Gloria Smith MD [address] [place] [phone] documented as of this encounter Visit Diagnoses Not on filedocumented in this encounter Care Teams Tapering Machine Operator Relationship Specialty Start Date End Date Nolberto Nicole MD PCP - General 07/21/08 12/30/13 Isidro Heredia MD Rheumatology 02/09/11 documented as of this encounter
--- OUTSIDE RECORDS SUMMARY | 2024-05-03 09:09 | XMS_ITS | Encounter Summary ---
Author Organization [facility] Address [address] [place] [address] Care Team Providers Care Medical Apparatus Model Maker Name Role Phone Nolberto Nicole MD Primary Care Provider [phone] Isidro Heredia MD Unavailable [phone] Reason for Visit * Treatment (Routine) - Closed Specialty Diagnoses / Procedures Referred By Lawrence shah Referred To Contact Infusion Therapy Nurse Diagnoses Rheumatoid arthritis(714.0) ([facility]) Procedures [place] INJECTION TOCILIZUMAB 1 MG Isidro Heredia MD [address] [facility] [facility] [place] [address] Referral ID Status Reason Start Date Expiration Date Visits Re quested Visits Authorized [id number] Closed 03/07/2013 06/05/2013 1 5 Encounter Details Date Type Department Care Team (Late st Contact Info) Description 04/11/2013 9:14 AM LENGTH CONTROL TESTER - 04/11/2013 11:59 PM LENGTH CONTROL TESTER Hospital Encounter [facility] - Rheumatology [address] [place] [address] Isidro Heredia MD [address] [place] [address] Discharge Disposition: Home or Self [...] Comments Blood Pressure 133/86 04/11/2013 9:34 AM LENGTH CONTROL TESTER Pulse 103 04/11/2013 9:34 AM LENGTH CONTROL TESTER Temperature 36.7 ??C (98.1 ??F) 04/11/2013 9:34 AM CS T Respiratory Rate 16 04/11/2013 9:34 AM LENGTH CONTROL TESTER Oxygen Saturation - - Inhaled Oxygen Concentration - - Weight 113.4 kg (250 lb) 04/11/2013 9:34 AM LENGTH CONTROL TESTER Height 177.8 cm (5' 10 ) 04/11/2013 9:34 AM LENGTH CONTROL TESTER Body Mass Index 35.87 04/11/2013 9:34 AM LENGTH CONTROL TESTER documented in this encounter Discharge Instructions * Discharge Instructions* Mirela Rodrigez, RN - 04/11/2013 9:51 AM LENGTH CONTROL TESTER [place] Rheumatology Post Infusion instructions You have [...] through Sunday 9-5 call the office at [phone] After hours or on the weekend call the exchange at [phone] If you have had lab work done [...] chosen [facility] as your provider. Mirela Rodrigez RN TH CONTROL TESTER * Discharge Instructions* Document, Scanned - 04/21/2013 8:34 PM LENGTH CONTROL TESTER TH CONTROL TESTER documented in this encounter Medications at Time of Discharge Medication Sig Dispensed Refills Start Date End Date Hbxiweedmme-Nhvsryffy-Bk t C-Mn (GLUCOSAMINE CHONDR 1500 COMPLX PO) [...] - 04/11/2013 9:48 AM CST JOSE Deng [id number] 04/11/2013 BP 133/86 Pulse 103 Temp 98.1 [...] Next treatment? 4 weeks Mirela Rodrigez RN TH CONTROL TESTER documented in this encounter Miscellaneous Notes * Miscellaneous Scans - Document, Scanned - 04/21/2013 8:33 PM CST TH CONTROL TESTER documented in this encounter Plan of Treatment Upcoming Encounters Date Type Department Care Team (Late st Contact Info) Description 06/03/2024 1:00 PM LENGTH CONTROL TESTER Appointment [facility] - Rheumatology [address] [place] [address] 06/03/2024 2:00 PM LENGTH CONTROL TESTER Office Visit [facility] - Rheumatology [address] [place] [address] Gloria Smith MD [address] [place] [phone] documented as of this encounter Visit Diagnoses Not on filedocumented in this encounter Administered Medications Inactive Administered Medications - up to 3 most recent administrations Medication Order MAR Action Action Date Dose Rate Site tocilizumab (ACTEMRA) 460 mg in NaCl 0.9 % IVPB 460 mg, at 100 mL/hr, Intravenous, ONCE, 1 dose, On Sun04/11/13 at 0945 $ Given 04/11/2013 9:48 AM LENGTH CONTROL TESTER 460 mg 100 mL/hr documented in this encounter Care Teams Medical Apparatus Model Maker Relationship Specialty Start Date End Date Nolberto Nicole MD PCP - General 07/21/08 12/30/13 Isidro Heredia MD Rheumatology 02/09/11 documented as of this encounter
--- OUTSIDE RECORDS SUMMARY | 2024-05-03 09:09 | XMS_ITS | Encounter Summary ---
Author Organization [facility] Address [address] [place] [address] Care Team Providers Care Chief Clinical Dietitian Name Role Phone Nolberto Nicole MD Primary Care Provider [phone] Isidro Heredia MD Unavailable [phone] Reason for Visit * Treatment (Routine) - Closed Specialty Diagnoses / Procedures Referred By Lawrence shah Referred To Contact Infusion Therapy Nurse Diagnoses Rheumatoid arthritis(714.0) ([facility]) Procedures CT INJECTION TOCILIZUMAB 1 MG Isidro Heredia MD [address] [place] [address] Referral ID Status Reason Start Date Expiration Date Visits Re quested Visits Authorized [id number] Closed 05/01/2013 04/29/2014 1 12 Encounter Details Date Type Department Care Team (Late st Contact Info) Description 06/10/2013 1:30 PM CLERICAL GRADER - 06/10/2013 11:59 PM [facility] Hospital Encounter [facility] - Rheumatology [address] [place] [address] Isidro Heredia MD [address] [place] [address] Discharge Disposition: Home or Self [...] Comments Blood Pressure 130/80 06/10/2013 2:00 PM CLERICAL GRADER Pulse 88 06/10/2013 2:00 PM CLERICAL GRADER Temperature 36.8 ??C (98.2 ??F) 06/10/2013 2:00 PM CS T Respiratory Rate 16 06/10/2013 2:00 PM CLERICAL GRADER Oxygen Saturation - - Inhaled Oxygen Concentration - - Weight 113.4 kg (250 lb) 06/10/2013 2:00 PM CLERICAL GRADER Height 177.8 cm (5' 10 ) 06/10/2013 2:00 PM CLERICAL GRADER Body Mass Index 35.87 06/10/2013 2:00 PM CLERICAL GRADER documented in this encounter Discharge Instructions * Discharge Instructions* Carlos Foreman, RN - 06/10/2013 2:05 PM CLERICAL GRADER [place] Rheumatology Post Infusion instructions You have [...] through Sunday 9-5 call the office at [phone] After hours or on the weekend call the exchange at [phone] If you have had lab work done [...] Hospital as your provider. Carlos Foreman RN ICAL GRADER * Discharge Instructions* Document, Scanned - 06/19/2013 8:21 PM CLERICAL GRADER ICAL GRADER documented in this encounter Medications at Time of Discharge Medication Sig Dispensed Refills Start Date End Date Jtkutbjuwfx-Epofbxgsd-Lf t C-Mn (GLUCOSAMINE CHONDR 1500 COMPLX PO) [...] (PERCOCET) 5-325 MG tabletIndications:Rheuma toid arthritis(714.0) ([facility]) Take 1 Tab by mouth every [...] - 06/10/2013 2:04 PM CST JOSE Deng [id number] 06/10/2013 Diagnosis: Rheumatoid arthritis [714.0]. Patient questionnaire [...] Yes Next treatment? 4wk Carlos Foreman RN ICAL GRADER documented in this encounter Miscellaneous Notes * Miscellaneous Scans - Document, Scanned - 06/18/2013 10:14 PM CST ICAL GRADER documented in this encounter Plan of Treatment Upcoming Encounters Date Type Department Care Team (Late st Contact Info) Description 06/03/2024 1:00 PM CLERICAL GRADER Appointment [facility] - Rheumatology [address] [place] [address] [phone] 06/03/2024 2:00 PM CLERICAL GRADER Office Visit [facility] - Rheumatology [address] [place] [address] [phone] Gloria Smith MD [address] [place] [phone] documented as of this encounter Visit Diagnoses Diagnosis Rheumatoid arthritis(714.0) ([facility])- Primary Rheumatoid arthritis documented in this encounter Administered Medications Inactive Administered Medications - up to 3 most recent administrations Medication Order MAR Action Action Date Dose Rate Site tocilizumab (ACTEMRA) 460 mg in NaCl 0.9 % IVPB 460 mg, at 100 mL/hr, Intravenous, ONCE, 1 dose, On Sun06/10/13 at 1345 $ Given 06/10/2013 2:03 PM CLERICAL GRADER 460 mg 100 mL/hr documented in this encounter Care Teams Chief Clinical Dietitian Relationship Specialty Start Date End Date Nolberto Nicole MD PCP - General 07/21/08 12/30/13 Isidro Heredia MD Rheumatology 02/09/11 documented as of this encounter
--- OUTSIDE RECORDS SUMMARY | 2024-05-03 09:09 | XMS_ITS | Encounter Summary ---
Author Organization [facility] Address [address] [place] [address] Care Team Providers Care Early Childhood Assistant Name Role Phone Nolberto Nicole MD Primary Care Provider [phone] Isidro Heredia MD Unavailable [phone] Encounter Details Date Type Department Care Team (Late Contact Info) Description 12/24/2012 Orders Only [facility] - Rheumatology [address] [place] [address] Mirela Rodrigez RN Rheumatoid arthritis (HCC) [...] Contact Info) Description 06/03/2024 1:00 PM HAND MODEL Appointment [facility] - Rheumatology [address] [place] [address] 06/03/2024 2:00 PM HAND MODEL Office Visit [facility] - Rheumatology [address] [place] [address] Gloria Smith MD [address] [place] [phone] documented as of this encounter Visit Diagnoses Diagnosis Rheumatoid arthritis(714.0) ([facility])- Primary Rheumatoid arthritis documented in this encounter Care Teams Early Childhood Assistant Relationship Specialty Start Date End Date Nolberto Nicole MD PCP - General 07/21/08 12/30/13 Isidro Heredia MD Rheumatology 02/09/11 documented as of this encounter
--- OUTSIDE RECORDS SUMMARY | 2024-05-03 09:09 | XMS_ITS | Encounter Summary ---
Author Organization [facility] Address [address] [facility] [place] [address] Care Team Providers Care Gunite Mixer Name Role Phone Nolberto Nicole MD Primary Care Provider [phone] Isidro Heredia MD Unavailable Reason for Referral * - Closed Specialty Diagnoses / Procedures Referred By Contac t Referred To Contact Diagnoses Pleurisy Abdominal pain Procedures CT THORAX ABDOMEN PELVIS W CONT Isidro Heredia MD [address] [place] [address] Referral ID Status Reason Start Date Expiration Date Visits Re quested Visits Authorized [id number] Closed 03/25/2013 09/21/2013 1 1 [place] SALESPERSON Reason for Visit * - Closed Specialty Diagnoses / Procedures Referred By Contac t Referred To Contact Diagnoses Pleurisy Abdominal pain Procedures CT THORAX ABDOMEN PELVIS W CONT Isidro Heredia MD [address] [place] [address] Referral ID Status Reason Start Date Expiration Date Visits Re quested Visits Authorized [id number] Closed 03/25/2013 09/21/2013 1 1 Encounter Details Date Type Department Care Team (Late st Contact Info) Description 03/25/2013 8:41 AM RETAIL SALESPERSON - 03/25/2013 11:59 PM RETAIL SALESPERSON Hospital Encounter [facility] Imaging Services - CT Scan [address] [place] [address] Isidro Heredia MD [address] [facility] EST [place] [address] Discharge Disposition: Home or Self Care Social [...] Sig Dispensed Refills Start Date End Date Gejbueiqdcd-Qxsavfvhd-N it C-Mn (GLUCOSAMINE CHONDR 1500 COMPLX PO) [...] oxycodone-acetaminophen (PERCOCET) 5-325 MG tabletIndications:Rheum atoid arthritis(714.0) ([facility]) Take 1 Tab by mouth every [...] Ct chest nl Ct abd benign diverticulosis [place] SAL[place] documented in this encounter Plan of Treatment Upcoming Encounters Date Type Department Care Team (Late st Contact Info) Description 06/03/2024 1:00 PM RETAIL SALESPERSON Appointment [facility] - Rheumatology [address] [place] [address] 06/03/2024 2:00 PM RETAIL SALESPERSON Office Visit [facility] - Rheumatology [address] [place] [address] Gloria Smith MD [address] [place] [address] [phone] documented as of this encounter Procedures Procedure Name Priority Date/Time Associated Diagnosis Comments CT CHEST ABDOMEN PELVIS W CONT Routine 03/25/2013 8:59 AM RETAIL SALESPERSON Pleurisy Abdominal pain documented in this encounter Results * CT THORAX ABDOMEN PELVIS W CONT (03/25/2013 8:59 AM RETAIL SALESPERSON) Anatomical Region Laterality Modality Chest, Abdomen, Pelvis Computed Tomography 03/25/2013 11:5 3 AM RETAIL SALESPERSON Narrative 03/25/2013 11:57 AM RETAIL SALESPERSON Examination: CT chest with contrast. Indication for [...] at 0117 $ Given 03/25/2013 8:59 AM RETAIL SALESPERSON 80 mL Right Arm documented in this encounter Care Teams Gunite Mixer Relationship Specialty Start Date End Date Nolberto Nicole MD PCP - General 07/21/08 12/30/13 Isidro Heredia MD Rheumatology 02/09/11 documented as of this encounter
--- OUTSIDE RECORDS SUMMARY | 2024-05-03 09:09 | XMS_ITS | Encounter Summary ---
Author Organization [facility] Address [address] [facility] [place] [address] Care Team Providers Care Street Light Cleaner Name Role Phone Nolberto Nicole MD Primary Care Provider Isidro Heredia MD Unavailable [phone] Reason for Visit * Reason Comments Rheumatoid Arthritis Pain Knee left Pain Hand rt with some swellin g * Evaluate & Treat (Routine) - Closed Specialty Diagnoses / Procedures Referred By Lawrence shah Referred To Contact Diagnoses Rheumatoid arthritis(714.0) (HCC) Procedures [place] OFFICE VISIT DURING HOURS Nolberto Nicole MD [address] [place] [address] Isidro Heredia MD [address] [place] [address] Referral ID Status Reason Start Date Expiration Date Visits Re quested Visits Authorized [id number] Closed 08/15/2012 02/11/2013 1 5 Encounter Details Date Type Department Care Team (Late st Contact Info) Description 01/09/2013 3:00 PM CDT Office Visit [facility] - Rheumatology [address] [place] [address] Isidro Heredia MD [address] [place] [address] Rheumatoid arthritis (HCC) (Primary Dx); [...] Active Take by mouth once daily. ??? Qvqmknsvsix-Lpocudylj-Tfp C-Mn (GLUCOSAMINE CHONDR 1500 COMPLX PO) Active [...] st Contact Info) Description 06/03/2024 1:00 PM SYSTEMS MGR Appointment [facility] - Rheumatology [address] [place] [address] 06/03/2024 2:00 PM SYSTEMS MGR Office Visit [facility] - Rheumatology [address] [place] [address] Gloria Smith MD [address] [place] [phone] documented as of this encounter Visit Diagnoses Diagnosis Rheumatoid arthritis(714.0) (HCC)- Primary Rheumatoid arthritis Chronic pain syndrome documented in this encounter Care Teams Street Light Cleaner Relationship Specialty Start Date End Date Nolberto Nicole MD PCP - General 07/21/08 12/30/13 Isidro Heredia MD Rheumatology 02/09/11 documented as of this encounter
--- OUTSIDE RECORDS SUMMARY | 2024-05-03 09:09 | XMS_ITS | Encounter Summary ---
Author Organization [facility] Address [address] [place] [address] Care Team Providers Care Metal Buffer Name Role Phone Nolberto Nicole MD Primary Care Provider [phone] Isidro Heredia MD Unavailable [phone] Reason for Visit * Treatment (Routine) - Closed Specialty Diagnoses / Procedures Referred By Lawrence shah Referred To Contact Infusion Therapy Nurse Diagnoses Rheumatoid arthritis(714.0) ([facility]) Procedures [place] INJECTION TOCILIZUMAB 1 MG Isidro Heredia MD [address] [facility] [place] [address] Referral ID Status Reason Start Date Expiration Date Visits Re quested Visits Authorized [id number] Closed 03/07/2013 06/05/2013 1 5 Encounter Details Date Type Department Care Team (Late st Contact Info) Description 05/12/2013 11:30 AM CARE TAKER - 05/12/2013 11:59 PM RUST Hospital Encounter [facility] - Rheumatology [address] [place] [address] Isidro Heredia MD [address] [place] [address] Discharge Disposition: Home or Self [...] Comments Blood Pressure 138/89 05/12/2013 12:03 PM CARE TAKER Pulse 81 05/12/2013 12:03 PM CARE TAKER Temperature 36.3 ??C (97.4 ??F) 05/12/2013 12:[address] Respiratory Rate 16 05/12/2013 12:03 PM CARE TAKER Oxygen Saturation - - Inhaled Oxygen Concentration - - Weight 113.4 kg (250 lb) 05/12/2013 12:03 PM CARE TAKER Height 177.8 cm (5' 10 ) 05/12/2013 12:03 PM CARE TAKER Body Mass Index 35.87 05/12/2013 12:03 PM CARE TAKER documented in this encounter Discharge Instructions * Discharge Instructions* Mirela Rodrigez, RN - 05/12/2013 12:07 PM CARE TAKER [place] Rheumatology Post Infusion instructions You have [...] through Sunday 9-5 call the office at [phone] After hours or on the weekend call the exchange at [phone] If you have had lab work done [...] [facility] as your provider. Mirela Rodrigez RN TAKER * Discharge Instructions* Document, Scanned - 05/16/2013 7:01 PM CARE TAKER TAKER documented in this encounter Medications at Time of Discharge Medication Sig Dispensed Refills Start Date End Date Bdnbyoyswcu-Gzadxdtih-Mu t C-Mn (GLUCOSAMINE CHONDR 1500 COMPLX PO) [...] - 05/12/2013 12:25 PM CST JOSE Deng [id number] 05/12/2013 BP 138/89 Pulse 81 Temp 97.4 [...] Next treatment? 4 weeks Mirela Rodrigez RN TAKER documented in this encounter Miscellaneous Notes * Miscellaneous Scans - Document, Scanned - 05/15/2013 5:41 PM CST TAKER documented in this encounter Plan of Treatment Upcoming Encounters Date Type Department Care Team (Late st Contact Info) Description 06/03/2024 1:00 PM CARE TAKER Appointment [facility] - Rheumatology [address] [place] [address] 06/03/2024 2:00 PM CARE TAKER Office Visit [facility] - Rheumatology [address] [place] [address] Gloria Smith MD [address] [place] [phone] documented as of this encounter Visit Diagnoses Not on filedocumented in this encounter Administered Medications Inactive Administered Medications - up to 3 most recent administrations Medication Order MAR Action Action Date Dose Rate Site tocilizumab (ACTEMRA) 460 mg in NaCl 0.9 % IVPB 460 mg, at 100 mL/hr, Intravenous, ONCE, 1 dose, On Sun05/12/13 at 1215 $ Given 05/12/2013 12:19 PM CARE TAKER 460 mg 100 mL/ hr documented in this encounter Care Teams Metal Buffer Relationship Specialty Start Date End Date Nolberto Nicole MD PCP - General 07/21/08 12/30/13 Isidro Heredia MD Rheumatology 02/09/11 documented as of this encounter
--- OUTSIDE RECORDS SUMMARY | 2024-05-03 09:09 | XMS_ITS | Encounter Summary ---
Author Organization [facility] Address [address] [facility] [place] [address] Care Team Providers Care Political Advisor Name Role Phone Nolberto Nicole MD Primary Care Provider [phone] Isidro Heredia MD Unavailable [phone] Encounter Details Date Type Department Care Team (Late st Contact Info) Description 04/11/2013 Orders Only [facility] - Rheumatology [address] [place] [address] [phone] Isidro Heredia MD [address] [place] [address] Rheumatoid arthritis (HCC) Social History Tobacco [...] CSTQuick Note: Sent lab letter to pt ETING INTELLIGENCE MANAGER * Isidro Heredia MD - 04/16/2013 6:50 AM CSTQuick Note: mtx ok ETING INTELLIGENCE MANAGER documented in this encounter Plan of Treatment Upcoming Encounters Date Type Department Care Team (Late st Contact Info) Description 06/03/2024 1:00 PM MARKETING INTELLIGENCE MANAGER Appointment [facility] - Rheumatology [address] [place] [address] 06/03/2024 2:00 PM MARKETING INTELLIGENCE MANAGER Office Visit [facility] - Rheumatology [address] [place] [address] Gloria Smith MD [address] [place] [phone] documented as of this encounter Procedures Procedure Name Priority Date/Time Associated Diagnosis Comments ERYTHROCYTE SEDIMENTATION RATE Routine 04/11/2013 9:30 AM MARKETING INTELLIGENCE MANAGER Rheumatoid Arthritis (Hcc) CBC W AUTO DIFFERENTIAL Routine 04/11/2013 9:30 AM MARKETING INTELLIGENCE MANAGER Rheumatoid Arthritis (Hcc) COMPREHENSIVE METABOLIC PANEL Routine 04/11/2013 9:30 AM MARKETING INTELLIGENCE MANAGER Rheumatoid Arthritis (Hcc) documented in this encounter Results * SED RATE WESTERGREN (04/11/2013 9:30 AM MARKETING INTELLIGENCE MANAGER) Erythrocyte Sedimentation Rate Westergren 20 0 - 30 mm/hr [facility] ACCOUNT BILL Blood specimen (specimen) BLOOD SPECIMEN / Unknown 04/11/2013 9:30 AM MARKETING INTELLIGENCE MANAGER 04/11/2013 6:53 PM MARKETING INTELLIGENCE MANAGER Narrative Resulting Agency Comment [facility] [place] [id number] [facility] ??[facility] [phone] Isidro Heredia MD LAB - HEMATOLOGY OR DERABLES [facility] ACCOUNT BILL * (ABNORMAL) COMPREHENSIVE METABOLIC PANEL (04/11/2013 9:30 AM MARKETING INTELLIGENCE MANAGER) Glucose 92 65 - 99 mg/dL [facility] [...] BLOOD SPECIMEN / Unknown 04/11/2013 9:30 AM MARKETING INTELLIGENCE MANAGER 04/11/2013 6:53 PM MARKETING INTELLIGENCE MANAGER Narrative Resulting Agency Comment [facility] [address] ??[facility] [phone] Isidro Heredia MD LAB - CHEMISTRY ORD ERABLES [facility] ACCOUNT BILL * (ABNORMAL) CBC W AUTO DIFFERENTIAL (04/11/2013 9:30 AM MARKETING INTELLIGENCE MANAGER) WBC 8.0 3.4 - 10.8 x10E3/uL [facility] [...] BLOOD SPECIMEN / Unknown 04/11/2013 9:30 AM MARKETING INTELLIGENCE MANAGER 04/11/2013 6:53 PM MARKETING INTELLIGENCE MANAGER Narrative Resulting Agency Comment [facility] [address] ??[facility] [phone] Isidro Heredia MD LAB - HEMATOLOGY OR DERABLES [facility] ACCOUNT BILL documented in this encounter Visit Diagnoses Diagnosis Rheumatoid arthritis(714.0) (HCC)- Primary Rheumatoid arthritis documented in this encounter Care Teams Political Advisor Relationship Specialty Start Date End Date Nolberto Nicole MD PCP - General 07/21/08 12/30/13 Isidro Heredia MD Rheumatology 02/09/11 documented as of this encounter
--- OUTSIDE RECORDS SUMMARY | 2024-05-03 09:09 | XMS_ITS | Encounter Summary ---
Author Organization [facility] Address [address] [facility] [place] [address] Care Team Providers Care Manager Interface Name Role Phone Nolberto Nicole MD Primary Care Provider [phone] Isidro Heredia MD Unavailable [phone] Reason for Visit * Treatment (Routine) - Closed Specialty Diagnoses / Procedures Referred By Lawrence shah Referred To Contact Infusion Therapy Nurse Diagnoses Rheumatoid arthritis(714.0) ([facility]) Procedures [place] INJECTION RITUXIMAB 100 MG Nolberto Nicole MD [address] [place] [address] Referral ID Status Reason Start Date Expiration Date Visits Re quested Visits Authorized [id number] Closed 04/30/2012 04/29/2013 1 4 Encounter Details Date Type Department Care Team (Late st Contact Info) Description 12/26/2012 10:18 AM CDT - 12/26/2012 11:59 PM CDT Hospital Encounter [facility] [employer] [facility] - Rheumatology [address] [place] [address] Isidro Heredia MD [address] [place] [address] Discharge Disposition: Home or Self Care [...] Rodrigez, TOVA - 12/26/2012 11:17 AM CDT [place] Rheumatology Post Infusion instructions [...] through Sunday 9-5 call the office at [phone] After hours or on the weekend call the exchange at [phone] If you have had lab work done [...] chosen [facility] as your provider. Mirela Rodrigez RN * Discharge Instructions* Document, Scanned - 01/05/2013 1:18 AM CDT documented in this encounter Medications at Time of Discharge Medication Sig Dispensed Refills Start Date End Date Eomxxwdxqwx-Nytgmkrjk-G it C-Mn (GLUCOSAMINE CHONDR 1500 COMPLX PO) [...] 12/26/2012 11:12 AM CDT JOSE Chalino Deng [id number] 12/26/2012 BP 129/75 Pulse 81 Temp 98.4 [...] Contact Info) Description 06/03/2024 1:00 PM MOLD STRIPPER Appointment [facility] - Rheumatology [address] [place] [address] 06/03/2024 2:00 PM MOLD STRIPPER Office Visit [facility] - Rheumatology [address] [place] [address] Gloria Smith MD [address] [place] [phone] documented as of this encounter Visit [...] mg documented in this encounter Care Teams Manager Interface Relationship Specialty Start Date End Date Nolberto Nicole MD PCP - General 07/21/08 12/30/13 Isidro Heredia MD Rheumatology 02/09/11 documented as of this encounter
--- OUTSIDE RECORDS SUMMARY | 2024-05-03 09:09 | XMS_ITS | Encounter Summary ---
Author Organization [facility] Address [address] [place] [address] Care Team Providers Care [place] Superintendent [employer] Name Role Phone Nolberto Nicole MD Primary Care Provider [phone] Isidro Heredia MD Unavailable [phone] Reason for Visit * Reason Comments Rheumatoid Arthritis pain scale: [address] iffness: Chest Pain left side. sob whem doing yard work Hospital Follow-up [facility] ([facility]) october 25 2012 regarding bladder infection. taking Cipro and Flomax * Evaluate & Treat (Routine) - Closed Specialty Diagnoses / Procedures Referred By Lawrence shah Referred To Contact Diagnoses Rheumatoid arthritis(714.0) ([facility]) Procedures IN OFFICE VISIT DURING HOURS Nolberto Nicole MD [address] [place] [address] Isidro Heredia MD [address] [place] [address] Referral ID Status Reason Start Date Expiration Date Visits Re quested Visits Authorized [id number] Closed 08/15/2012 02/11/2013 1 5 Encounter Details Date Type Department Care Team (Late st Contact Info) Description 11/11/2012 5:15 PM CDT Office Visit [facility] - Rheumatology [address] [place] [address] Isidro Heredia MD [address] [place] [address] Rheumatoid arthritis (HCC) (Primary Dx); Chronic pain [...] whem doing yard work ??? Hospital Follow-up [facility] ([facility]) october 25 2012 regarding bladder infection. [...] PO) Take by mouth once daily. ??? Wslglvnfugm-Vrodhkzsc-Fkb C-Mn (GLUCOSAMINE CHONDR 1500 COMPLX PO) Take [...] whem doing yard work ??? Hospital Follow-up [facility] ([facility]) october 25 2012 regarding bladder infection. taking Cipro and Flomax BP 124/90 Pulse 84 Wt 111.041 kg (244 lb 12.8 oz) documented in this encounter Plan of Treatment Upcoming Encounters Date Type Department Care Team (Late st Contact Info) Description 06/03/2024 1:00 PM SENIOR WEB APPLICATIONS DEVELOPER Appointment [facility] - Rheumatology [address] [place] [address] [phone] 06/03/2024 2:00 PM SENIOR WEB APPLICATIONS DEVELOPER Office Visit [facility] - Rheumatology [address] [place] [address] [phone] Gloria Smith MD [address] [place] [phone] documented as of this encounter Visit Diagnoses Diagnosis Rheumatoid arthritis(714.0) ([facility])- Primary Rheumatoid arthritis Chronic pain syndrome Acute UTI Urinary tract infection, site not specified documented in this encounter Care Teams [place] Superintendent [employer] Relationship Specialty Start Date End Date Nolberto Nicole MD PCP - General 07/21/08 12/30/13 Isidro Heredia MD Rheumatology 02/09/11 documented as of this encounter
--- OUTSIDE RECORDS SUMMARY | 2024-05-03 09:09 | XMS_ITS | Encounter Summary ---
Author Organization [facility] Address [address] [place] [address] Care Team Providers Care Circuit Board Assembler Name Role Phone Nolberto Nicole MD Primary Care Provider [phone] Isidro Heredia MD Unavailable [phone] Reason for Visit * Reason Comments Chest Pain Encounter Details Date Type Department Care Team (Late Contact Info) Description 03/21/2013 1:15 PM BRAND STRATEGY MANAGER Procedure visit [facility] - Family Medicine [address] [place] [address] Pleurisy Social History Tobacco Use Types [...] XR CHEST PA AND LATERAL CXR: NAD D STRATEGY MANAGER documented in this encounter Plan of Treatment Upcoming Encounters Date Type Department Care Team (Late Contact Info) Description 06/03/2024 1:00 PM BRAND STRATEGY MANAGER Appointment [facility] - Rheumatology [address] [place] [address] 06/03/2024 2:00 PM BRAND STRATEGY MANAGER Office Visit [facility] - Rheumatology [address] [place] [address] Gloria Smith MD [address] [place] [phone] documented as of this encounter Procedures Procedure Name Priority Date/Time Associated Diagnosis Comments XR CHEST 2VW Routine 03/24/2013 6:23 PM BRAND STRATEGY MANAGER Pleurisy documented in this encounter Results * XR CHEST PA AND LATERAL (03/24/2013 6:23 PM BRAND STRATEGY MANAGER) Anatomical Region Laterality Modality Chest Other Narrative 03/24/2013 6:23 PM BRAND STRATEGY MANAGER Isidro Heredia MD ? 03/24/2013 ??6:23 PM CXR: ??NAD Procedure Note Isidro Heredia MD - 03/24/2013 6:22 PM CST CXR: NAD Isidro Heredia MD DIAGNOSTIC IMAGING ORDERABLES documented in this encounter Visit Diagnoses Diagnosis Pleurisy- Primary documented in this encounter Care Teams Circuit Board Assembler Relationship Specialty Start Date End Date Nolberto Nicole MD PCP - General 07/21/08 12/30/13 Isidro Heredia MD Rheumatology 02/09/11 documented as of this encounter
--- OUTSIDE RECORDS SUMMARY | 2024-05-03 09:09 | XMS_ITS | Encounter Summary ---
Author Organization [facility] Address [address] [place] [address] Care Team Providers Care Counselor Education Professor Name Role Phone Nolberto Nicole MD Primary Care Provider [phone] Isidro Heredia MD Unavailable [phone] Reason for Visit * Treatment (Routine) - Closed Specialty Diagnoses / Procedures Referred By Lawrence shah Referred To Contact Infusion Therapy Nurse Diagnoses Rheumatoid arthritis(714.0) ([facility]) Procedures CT INJECTION TOCILIZUMAB 1 MG Isidro Heredia MD [address] [place] [address] Referral ID Status Reason Start Date Expiration Date Visits Re quested Visits Authorized [id number] Closed 03/07/2013 06/05/2013 1 5 Encounter Details Date Type Department Care Team (Late st Contact Info) Description 03/21/2013 12:50 PM DIRECT CARE WORKER - 03/21/2013 11:59 PM DIRECT CARE WORKER Hospital Encounter [facility] - Rheumatology [address] [place] [address] Isirdo Heredia MD [address] [place] [address] Discharge Disposition: Home or Self [...] Sig Dispensed Refills Start Date End Date Tmxfgpglxmq-Bljfxyzbb-Z it C-Mn (GLUCOSAMINE CHONDR 1500 COMPLX PO) [...] Document, Scanned - 04/01/2013 10:[address] CARE WORKER documented in this encounter Plan of Treatment Upcoming Encounters Date Type Department Care Team (Late st Contact Info) Description 06/03/2024 1:00 PM DIRECT CARE WORKER Appointment [facility] - Rheumatology [address] [place] [address] 06/03/2024 2:00 PM DIRECT CARE WORKER Office Visit [facility] - Rheumatology [address] [place] [address] Gloria Smith MD [address] [place] [phone] documented as of this encounter Visit Diagnoses Not on filedocumented in this encounter Care Teams Counselor Education Professor Relationship Specialty Start Date End Date Nolberto Nicole MD PCP - General 07/21/08 12/30/13 Isidro Heredia MD Rheumatology 02/09/11 documented as of this encounter
--- OUTSIDE RECORDS SUMMARY | 2024-05-03 09:09 | XMS_ITS | Encounter Summary ---
Author Organization [facility] Address [address] [facility] [place] [address] Care Team Providers Care Sandwich And Drink Cart Operator Name Role Phone Nolberto Nicole MD Primary Care Provider [phone] Isidro Heredia MD Unavailable [phone] Encounter Details Date Type Department Care Team (Late st Contact Info) Description 06/10/[address] [facility] - Rheumatology [address] [place] [address] [phone] Isidro Heredia MD [address] [place] [address] Rheumatoid arthritis (HCC) Social History Tobacco [...] Letter mailed to patient regarding lab results. R REGISTRAR * Isidro Heredia MD - 06/18/2013 6:54 AM CSTQuick Note: bs 155 mtx ok R REGISTRAR documented in this encounter Plan of Treatment Upcoming Encounters Date Type Department Care Team (Late st Contact Info) Description 06/03/2024 1:00 PM TUMOR REGISTRAR Appointment [facility] - Rheumatology [address] [place] [address] [phone] 06/03/2024 2:00 PM TUMOR REGISTRAR Office Visit [facility] - Rheumatology [address] [place] [address] Gloria Smith MD [address] [place] [phone] documented as of this encounter Procedures Procedure Name Priority Date/Time Associated Diagnosis Comments ERYTHROCYTE SEDIMENTATION RATE Routine 06/10/2013 3:30 PM TUMOR REGISTRAR Rheumatoid Arthritis (Hcc) CBC W AUTO DIFFERENTIAL Routine 06/10/2013 3:30 PM TUMOR REGISTRAR Rheumatoid Arthritis (Hcc) COMPREHENSIVE METABOLIC PANEL Routine 06/10/2013 3:30 PM TUMOR REGISTRAR Rheumatoid Arthritis (Hcc) documented in this encounter Results * SED RATE WESTERGREN (06/10/2013 3:30 PM TUMOR REGISTRAR) Erythrocyte Sedimentation Rate Westergren 29 0 - 30 mm/hr [facility] ACCOUNT BILL Blood specimen (specimen) BLOOD SPECIMEN / Unknown 06/10/2013 3:30 PM TUMOR REGISTRAR 06/10/2013 5:37 PM TUMOR REGISTRAR Narrative Resulting Agency Comment [facility] [address] [facility] ??[facility] [phone] Isidro Heredia MD LAB - HEMATOLOGY OR DERABLES [facility] ACCOUNT BILL * (ABNORMAL) COMPREHENSIVE METABOLIC PANEL (06/10/2013 3:30 PM TUMOR REGISTRAR) Glucose 155(H) 65 - 99 mg/dL [facility] [...] BLOOD SPECIMEN / Unknown 06/10/2013 3:30 PM TUMOR REGISTRAR 06/10/2013 5:37 PM TUMOR REGISTRAR Narrative Resulting Agency Comment [facility] [address] ??[facility] [phone] Isidro Heredia MD LAB - CHEMISTRY ORD ERABLES [facility] ACCOUNT BILL * (ABNORMAL) CBC W AUTO DIFFERENTIAL (06/10/2013 3:30 PM TUMOR REGISTRAR) WBC 9.9 3.4 - 10.8 x10E3/uL [facility] [...] BLOOD SPECIMEN / Unknown 06/10/2013 3:30 PM TUMOR REGISTRAR 06/10/2013 5:37 PM TUMOR REGISTRAR Narrative Resulting Agency Comment [facility] [address] ??[facility] [phone] Isidro Heredia MD LAB - HEMATOLOGY OR DERABLES [facility] ACCOUNT BILL documented in this encounter Visit Diagnoses Diagnosis Rheumatoid arthritis(714.0) (HCC)- Primary Rheumatoid arthritis documented in this encounter Care Teams Sandwich And Drink Cart Operator Relationship Specialty Start Date End Date Nolberto Nicole MD PCP - General 07/21/08 12/30/13 Isidro Heredia MD Rheumatology 02/09/11 documented as of this encounter
--- OUTSIDE RECORDS SUMMARY | 2024-05-03 09:10 | XMS_ITS | Encounter Summary ---
Author Organization [facility] Address [address] [facility] [place] [address] Care Team Providers Care Sergeant Of Officers Name Role Phone Nolberto Nicole MD Primary Care Provider Isidro Heredia MD Unavailable [phone] Reason for Visit * Reason Comments Follow-up RA Pain Hand obdulia with swelling. r t is worse with tingling sensation * Evaluate & Treat (Routine) - Closed Specialty Diagnoses / Procedures Referred By Lawrence shah Referred To Contact Diagnoses Rheumatoid arthritis(714.0) (HCC) Procedures IN OFFICE VISIT DURING HOURS Nolberto Nicole MD [address] [place] [address] Isidro Heredia MD [address] [place] [address] Referral ID Status Reason Start Date Expiration Date Visits Re quested Visits Authorized [id number] Closed 08/03/2011 01/30/2012 1 12 Encounter Details Date Type Department Care Team (Late st Contact Info) Description 08/07/2011 5:15 PM CDT Office Visit [facility] - Rheumatology [address] [place] [address] Isidro Heredia MD [address] [place] [address] Rheumatoid arthritis (HCC) (Primary Dx); [...] Body Mass Index 34.29 05/15/2011 5:19 PM BABBITT SPINNER documented in this encounter Progress Notes * [...] PO) Take by mouth once daily. ??? Hmfrlwhjgby-Ayyomfihv-Fmn C-Mn (GLUCOSAMINE CHONDR 1500 COMPLX PO) Take [...] st Contact Info) Description 06/03/2024 1:00 PM BABBITT SPINNER Appointment [facility] - Rheumatology [address] [place] [address] 06/03/2024 2:00 PM BABBITT SPINNER Office Visit [facility] - Rheumatology [address] [place] [address] Gloria Smith MD [address] [place] [phone] documented as of this encounter Visit Diagnoses Diagnosis Rheumatoid arthritis(714.0) (HCC)- Primary Rheumatoid arthritis Triceps tendonitis Other enthesopathy of elbow region Pneumonia Pneumonia, organism unspecified documented in this encounter Care Teams Sergeant Of Officers Relationship Specialty Start Date End Date Nolberto Nicole MD PCP - General 07/21/08 12/30/13 Isidro Heredia MD Rheumatology 02/09/11 documented as of this encounter
--- OUTSIDE RECORDS SUMMARY | 2024-05-03 09:10 | XMS_ITS | Encounter Summary ---
Author Organization [facility] Address [address] [facility] [place] [address] Care Team Providers Care Multicultural Services Librarian Name Role Phone Nolberto Nicole MD Primary Care Provider Isidro Heredia MD Unavailable [phone] Reason for Visit * Reason Comments Rheumatoid [...] To Contact Diagnoses Rheumatoid arthritis(714.0) ([facility]) Procedures CT OFFICE VISIT DURING HOURS Nolberto Nicole MD [address] [place] [address] Isidro Heredia MD [address] [place] [address] Referral ID Status Reason Start Date Expiration Date Visits Re quested Visits Authorized [id number] Closed 02/20/2012 08/18/2012 1 5 Encounter Details Date Type Department Care Team (Late st Contact Info) Description 07/22/2012 3:30 PM CDT Office Visit [facility] - Rheumatology [address] [place] [address] Isidro Heredia MD [address] [facility] [place] [address] Rheumatoid arthritis (HCC) (Primary Dx); Screening examination [...] Body Mass Index 35.7 05/15/2011 5:19 PM SENIOR RADIATION THERAPIST documented in this encounter Progress Notes * [...] PO) Take by mouth once daily. ??? Vncunbzxnrg-Kferkdqde-Dxg C-Mn (GLUCOSAMINE CHONDR 1500 COMPLX PO) Take [...] Contact Info) Description 06/03/2024 1:00 PM SENIOR RADIATION THERAPIST Appointment [facility] - Rheumatology [address] [place] [address] 06/03/2024 2:00 PM SENIOR RADIATION THERAPIST Office Visit [facility] - Rheumatology [address] [place] [address] Gloria Smith MD [address] [place] [phone] documented as of this encounter Procedures Procedure [...] 6:18 PM CDT Narrative Resulting Agency Comment [facility] ??[facility] [phone] Isidro Heredia MD LAB - CHEMISTRY ORD SocrativeBLES [facility] ACCOUNT BILL * QUANTIFERON TB-GOLD (07/22/2012 4:43 PM CDT) Pathologist [facility] QuantiFERON Incubation [facility] ACCOUNT BILL Comment: Incubated, specimen forwarded to [email or web address], [place], [place] for completion of the assay. This specimen has been tested 3 times with 2 out of 3 values positive. ??A repeat specimen performed in 2-3 weeks time may give a consistent negative result. Blood specimen (specimen) BLOOD SPECIMEN / Unknown 07/22/2012 4:43 PM CDT 07/22/2012 6:18 PM CDT Narrative Resulting Agency Comment [facility] [id number] [place] [address] ??[facility] [phone] Isidro Heredia MD LAB - CHEMISTRY ORD SocrativeBLES [facility] ACCOUNT BILL * (ABNORMAL) SED RATE WESTERGREN (07/22/2012 4:42 PM CDT) Erythrocyte Sedimentation Rate Westergren 39(H) 0 - 15 mm/hr [facility] ACCOUNT BILL Blood specimen (specimen) BLOOD SPECIMEN / Unknown 07/22/2012 4:42 PM CDT 07/22/2012 6:18 PM CDT Narrative Resulting Agency Comment [facility] [address] ??[facility] [phone] Isidro Heredia MD LAB - HEMATOLOGY OR DERABLES Performing Organization Address City/[facility]/ZIP Co de Phone Number [facility] ACCOUNT BILL * (ABNORMAL) C-REACTIVE PROTEIN (07/22/2012 4:42 PM CDT) C-Reactive Protein 5.7(H) 0.0 - 4.9 mg/L [facility] ACCOUNT BILL Blood specimen (specimen) BLOOD SPECIMEN / Unknown 07/22/2012 4:42 PM CDT 07/22/2012 6:18 PM CDT Narrative Resulting Agency Comment [facility] ??[facility] [phone] Isidro Heredia MD LAB - CHEMISTRY ORD [...] CDT Narrative Resulting Agency Comment [facility] [address] ??[facility] [phone] Isidro Heredia MD LAB - CHEMISTRY ORD [...] CDT Narrative Resulting Agency Comment [facility] [address] ??[facility] [phone] Isidro Heredia MD LAB - HEMATOLOGY OR DERABLES [facility] ACCOUNT BILL documented in this encounter Visit Diagnoses Diagnosis Rheumatoid arthritis(714.0) (HCC)- Primary Rheumatoid arthritis Screening examination for pulmonary tuberculosis Sinusitis chronic, ethmoidal Chronic ethmoidal sinusitis Rheumatoid arthritis(714.0) (HCC) Rheumatoid arthritis documented in this encounter Care Teams Multicultural Services Librarian Relationship Specialty Start Date End Date Nolberto Nicole MD PCP - General 07/21/08 12/30/13 Isidro Heredia MD Rheumatology 02/09/11 documented as of this encounter
--- OUTSIDE RECORDS SUMMARY | 2024-05-03 09:10 | XMS_ITS | Encounter Summary ---
Author Organization [facility] Address [address] [facility] [place] [address] Care Team Providers Care Personal Support Worker Name Role Phone Nolberto Nicole MD Primary Care Provider Isidro Heredia MD Unavailable Reason for Visit * Reason Comments Follow-up ra Shoulder Pain left * Evaluate & Treat (Routine) - Closed Specialty Diagnoses / Procedures Referred By Lawrence t Referred To Contact Diagnoses Rheumatoid arthritis(714.0) (HCC) Procedures MD OFFICE VISIT DURING HOURS Nolberto Nicole MD [address] [place] [address] Isidro Heredia MD [address] [place] [address] Referral ID Status Reason Start Date Expiration Date Visits Re quested Visits Authorized [id number] Closed 08/03/2011 01/30/2012 1 12 Encounter Details Date Type Department Care Team (Late st Contact Info) Description 12/11/2011 5:30 PM CDT Office Visit [facility] - Rheumatology [address] [place] [address] Isidro Heredia MD [address] [place] [address] Rheumatoid arthritis (HCC) (Primary Dx); [...] Body Mass Index 35.13 05/15/2011 5:19 PM LICENSED CLINICAL PSYCHOLOGIST documented in this encounter Progress Notes * [...] PO) Take by mouth once daily. ??? Sihsezvipsf-Gcmibgyov-Vjq C-Mn (GLUCOSAMINE CHONDR 1500 COMPLX PO) Take [...] C-REACTIVE PROTEIN ??? SED RATE WESTERGREN ??? MD DRAIN/INJECT LARGE JOINT/BURSA ??? oxycodone-acetaminophen (PERCOCET) 5-325 [...] st Contact Info) Description 06/03/2024 1:00 PM LICENSED CLINICAL PSYCHOLOGIST Appointment [facility] - Rheumatology [address] [place] [address] 06/03/2024 2:00 PM LICENSED CLINICAL PSYCHOLOGIST Office Visit [facility] - Rheumatology [address] [place] [address] Gloria Smith MD [address] [place] [phone] documented as of this encounter Procedures Procedure Name Priority Date/Time Associated Diagnosis Comments C-REACTIVE PROTEIN Routine 12/11/2011 6: 20 PM CDT Rheumatoid arthritis (HCC) ERYTHROCYTE SEDIMENTATION RATE Routine 12/11/2011 6:20 PM CDT Rheumatoid arthritis (HCC) CBC W AUTO DIFFERENTIAL Routine 12/11/2011 6:20 PM CDT Rheumatoid arthritis ([facility]) COMPREHENSIVE METABOLIC PANEL Routine 12/11/2011 6:20 PM CDT Rheumatoid arthritis (HCC) documented in this encounter Results * (ABNORMAL) SED RATE WESTERGREN (12/11/2011 6:20 PM CDT) Erythrocyte Sedimentation Rate Westergren 27(H) 0 - 15 mm/hr [facility] ACCOUNT BILL Blood specimen (specimen) BLOOD SPECIMEN / Unknown 12/11/2011 6:20 PM CDT 12/12/2011 4:32 AM CDT Narrative Resulting Agency Comment [facility] ??[facility] [phone] Isidro Heredia MD LAB - HEMATOLOGY OR DERABLES Performing Organization Address City/[facility]/ZIP Co de Phone Number [facility] ACCOUNT BILL * C-REACTIVE PROTEIN (12/11/2011 6:20 PM CDT) C-Reactive Protein 4.4 0.0 - 4.9 mg/L [facility] ACCOUNT BILL Blood specimen (specimen) BLOOD SPECIMEN / Unknown 12/11/2011 6:20 PM CDT 12/12/2011 4:32 AM CDT Narrative Resulting Agency Comment [facility] ??[facility] [phone] Isidro Heredia MD LAB - CHEMISTRY ORD ERABLES Performing Organization Address [facility] Co de Phone Number [facility] ACCOUNT [...] AM CDT Narrative Resulting Agency Comment [facility] [address] ??[facility] [phone] Isidro Heredia MD LAB - CHEMISTRY ORD [...] AM CDT Narrative Resulting Agency Comment [facility] [address] ??[facility] [phone] Isidro Heredia MD LAB - HEMATOLOGY OR DERABLES [facility] ACCOUNT BILL documented in this encounter Visit Diagnoses Diagnosis Rheumatoid arthritis(714.0) ([facility])- Primary Rheumatoid arthritis Triceps tendonitis Other enthesopathy of elbow region Chronic pain syndrome documented in this encounter Care Teams Personal Support Worker Relationship Specialty Start Date End Date Nolberto Nicole MD PCP - General 07/21/08 12/30/13 Isidro Heredia MD Rheumatology 02/09/11 documented as of this encounter
--- OUTSIDE RECORDS SUMMARY | 2024-05-03 09:10 | XMS_ITS | Encounter Summary ---
Author Organization [facility] Address [address] [place] [address] Care Team Providers Care Merchandise Flow Team Member Name Role Phone Nolberto Nicole MD Primary Care Provider [phone] Isidro Heredia MD Unavailable [phone] Reason for Visit * Reason Comments Follow-up RA Upper Extremity Problem rt shoulder and hands especially when he wakes up in the am. swelling in obdulia hands Medication Request wants to discuss dec rease in Prednisone * Evaluate & Treat (Routine) - Closed Specialty Diagnoses / Procedures Referred By Lawrence shah Referred To Contact Diagnoses Rheumatoid arthritis(714.0) ([facility]) Procedures [place] OFFICE VISIT DURING HOURS Nolberto Nicole MD [address] [place] [address] Isidro Heredia MD [address] [place] [address] Referral ID Status Reason Start Date Expiration Date Visits Re quested Visits Authorized [id number] Closed 02/20/2012 08/18/2012 1 5 Encounter Details Date Type Department Care Team (Late st Contact Info) Description 03/11/2012 5:00 PM MAIN LINE ASSEMBLER Office Visit [facility] - Rheumatology [address] [place] [address] Isidro Heredia MD [address] [place] [address] Rheumatoid arthritis (HCC) (Primary Dx); [...] Comments Blood Pressure 130/68 03/11/2012 5:02 PM MAIN LINE ASSEMBLER Pulse 88 03/11/2012 5:02 PM MAIN LINE ASSEMBLER Temperature - - Respiratory Rate - - Oxygen Saturation - - Inhaled Oxygen Concentration - - Weight 114.2 kg (251 lb 12.8 oz) 03/11/2012 5:02 PM MAIN LINE ASSEMBLER Height - - Body Mass Index 36.13 05/15/2011 5:19 PM MAIN LINE ASSEMBLER documented in this encounter Progress Notes * Rea Hagan MA - 03/15/2012 2:29 PM CSTQuick Note: Sent lab letter to pt LINE ASSEMBLER * Isidro Heredia MD - 03/15/2012 5:43 AM CSTQuick Note: mtx ok LINE ASSEMBLER * Isidro Heredia MD - 03/11/2012 5:23 [...] PO) Take by mouth once daily. ??? Qhkizvuizpr-Sqaziehgz-Ofj C-Mn (GLUCOSAMINE CHONDR 1500 COMPLX PO) Take [...] Follow up in office in 4 weeks LINE ASSEMBLER * Rea Hagan MA - 03/11/2012 5:03 PM CST Chief Complaint Patient presents with ??? Follow-up RA ??? Upper Extremity Problem rt shoulder and hands especially when he wakes up in the am. swelling in obdulia hands ??? Medication Request wants to discuss decrease in Prednisone BP 130/68 Pulse 88 Wt 251 lb 12.8 oz (114.216 kg) LINE ASSEMBLER documented in this encounter Plan of Treatment Upcoming Encounters Date Type Department Care Team (Late st Contact Info) Description 06/03/2024 1:00 PM MAIN LINE ASSEMBLER Appointment [facility] - Rheumatology [address] [place] [address] 06/03/2024 2:00 PM MAIN LINE ASSEMBLER Office Visit [facility] - Rheumatology [address] [place] [address] Gloria Smith MD [address] [place] [phone] documented as of this encounter Procedures Procedure Name Priority Date/Time Associated Diagnosis Comments C-REACTIVE PROTEIN Routine 03/11/2012 5: 38 PM MAIN LINE ASSEMBLER Rheumatoid arthritis (HCC) ERYTHROCYTE SEDIMENTATION RATE Routine 03/11/2012 5:38 PM MAIN LINE ASSEMBLER Rheumatoid arthritis (HCC) CBC W AUTO DIFFERENTIAL Routine 03/11/2012 5:38 PM MAIN LINE ASSEMBLER Rheumatoid arthritis (HCC) COMPREHENSIVE METABOLIC PANEL Routine 03/11/2012 5:38 PM MAIN LINE ASSEMBLER Rheumatoid arthritis (HCC) documented in this encounter Results * (ABNORMAL) SED RATE WESTERGREN (03/11/2012 5:38 PM MAIN LINE ASSEMBLER) Erythrocyte Sedimentation Rate Westergren 26(H) 0 - 15 mm/hr [facility] ACCOUNT BILL Blood specimen (specimen) BLOOD SPECIMEN / Unknown 03/11/2012 5:38 PM MAIN LINE ASSEMBLER 03/11/2012 10:04 PM MAIN LINE ASSEMBLER Narrative Resulting Agency Comment [facility] [address] ??[facility] [phone] Isidro Heredia MD LAB - HEMATOLOGY OR DERABLES [facility] ACCOUNT BILL * C-REACTIVE PROTEIN (03/11/2012 5:38 PM MAIN LINE ASSEMBLER) C-Reactive Protein 3.6 0.0 - 4.9 mg/L [facility] ACCOUNT BILL Blood specimen (specimen) BLOOD SPECIMEN / Unknown 03/11/2012 5:38 PM MAIN LINE ASSEMBLER 03/11/2012 10:04 PM MAIN LINE ASSEMBLER Narrative Resulting Agency Comment [facility] [place] [id number] [facility] ??[facility] [phone] Isidro Heredia MD LAB - CHEMISTRY ORD ERABLES Performing Organization Address City/[facility]/ZIP Co de Phone Number [facility] ACCOUNT BILL * (ABNORMAL) COMPREHENSIVE METABOLIC PANEL (03/11/2012 5:38 PM MAIN LINE ASSEMBLER) Glucose 113(H) 65 - 99 mg/dL [facility] [...] BLOOD SPECIMEN / Unknown 03/11/2012 5:38 PM MAIN LINE ASSEMBLER 03/11/2012 10:04 PM MAIN LINE ASSEMBLER Narrative Resulting Agency Comment [facility] [address] ??[facility] [phone] Isidro Heredia MD LAB - CHEMISTRY ORD ERABLES [facility] ACCOUNT BILL * (ABNORMAL) CBC W AUTO DIFFERENTIAL (03/11/2012 5:38 PM MAIN LINE ASSEMBLER) WBC 9.8 4.0 - 10.5 x10E3/uL [facility] [...] BLOOD SPECIMEN / Unknown 03/11/2012 5:38 PM MAIN LINE ASSEMBLER 03/11/2012 10:04 PM MAIN LINE ASSEMBLER Narrative Resulting Agency Comment [facility] [address] ??[facility] [phone] Isidro Heredia MD LAB - HEMATOLOGY OR DERABLES [facility] ACCOUNT BILL documented in this encounter Visit Diagnoses Diagnosis Rheumatoid arthritis(714.0) (HCC)- Primary Rheumatoid arthritis Triceps tendonitis Other enthesopathy of elbow region documented in this encounter Care Teams Merchandise Flow Team Member Relationship Specialty Start Date End Date Nolberto Nicole MD PCP - General 07/21/08 12/30/13 Isidro Heredia MD Rheumatology 02/09/11 documented as of this encounter
--- OUTSIDE RECORDS SUMMARY | 2024-05-03 09:10 | XMS_ITS | Encounter Summary ---
Author Organization [facility] Address [address] [facility] [place] [address] Care Team Providers Care Treasury Manager Name Role Phone Nolberto Nicole MD Primary Care Provider [phone] Isidro Heredia MD Unavailable [phone] Reason for Visit * Reason Comments Follow-up ra Encounter Details Date Type Department Care Team (Late st Contact Info) Description 11/06/2011 5:30 PM CDT Office Visit [facility] - Rheumatology [address] [place] [address] Isidro Heredia MD [address] [place] [address] Rheumatoid arthritis (HCC) (Primary Dx); Triceps [...] Body Mass Index 35.33 05/15/2011 5:19 PM SUPERVISOR INSTRUMENT MAINTENANCE documented in this encounter Progress Notes * [...] PO) Take by mouth once daily. ??? Tdemrkrelca-Wldpovsrl-Wvp C-Mn (GLUCOSAMINE CHONDR 1500 COMPLX PO) Take [...] Contact Info) Description 06/03/2024 1:00 PM SUPERVISOR INSTRUMENT MAINTENANCE Appointment [facility] - Rheumatology [address] [place] [address] 06/03/2024 2:00 PM SUPERVISOR INSTRUMENT MAINTENANCE Office Visit [facility] - Rheumatology [address] [place] [address] Gloria Smith MD [address] [place] [phone] documented as of this encounter Procedures Procedure Name Priority Date/Time Associated Diagnosis Comments C-REACTIVE PROTEIN Routine 11/06/2011 6: 21 PM CDT Rheumatoid arthritis (HCC) ERYTHROCYTE SEDIMENTATION RATE Routine 11/06/2011 6:21 PM CDT Rheumatoid arthritis (HCC) CBC W AUTO DIFFERENTIAL Routine 11/06/2011 6:21 PM CDT Rheumatoid arthritis ([facility]) COMPREHENSIVE METABOLIC PANEL Routine 11/06/2011 6:21 PM [...] CDT Narrative Resulting Agency Comment [facility] [address] ??[facility] [phone] Isidro Heredia MD LAB - HEMATOLOGY OR DERABLES Performing Organization Address [facility] de Phone Number [facility] ACCOUNT BILL * C-REACTIVE PROTEIN (11/06/2011 6:21 PM CDT) Pathologist [facility] C-Reactive Protein 2.0 0.0 - 4.9 mg/L [facility] ACCOUNT BILL Blood specimen (specimen) BLOOD SPECIMEN / Unknown 11/06/2011 6:21 PM CDT 11/06/2011 9:53 PM CDT Narrative Resulting Agency Comment [facility] [place] [address] [facility] ??[facility] hospital [phone] Isidro Heredia MD LAB - CHEMISTRY ORD ERABLES Performing Organization Address City/[facility]/ZIP Co de Phone Number [facility] ACCOUNT [...] CDT Narrative Resulting Agency Comment [facility] [address] ??[facility] access hospital [phone] Isidro Heredia MD LAB - CHEMISTRY ORD ERABLES [facility] ACCOUNT BILL * (ABNORMAL) SED RATE WESTERGREN (11/06/2011 6:21 PM CDT) Erythrocyte Sedimentation Rate Westergren 24(H) 0 - 15 mm/hr [facility] ACCOUNT BILL Blood specimen (specimen) BLOOD SPECIMEN / Unknown 11/06/2011 6:21 PM CDT 11/06/2011 9:53 PM CDT Narrative Resulting Agency Comment [facility] [place] [address] [facility] ??Critical access hospital [phone] Isidro Heredia MD LAB - HEMATOLOGY OR DERABLES [facility] ACCOUNT BILL documented in this encounter Visit Diagnoses Diagnosis Rheumatoid arthritis(714.0) ([facility])- Primary Rheumatoid arthritis Triceps tendonitis Other enthesopathy of elbow region documented in this encounter Care Teams Treasury Manager Relationship Specialty Start Date End Date Nolberto Nicole MD PCP - General 07/21/08 12/30/13 Isidro Heredia MD Rheumatology 02/09/11 documented as of this encounter
--- OUTSIDE RECORDS SUMMARY | 2024-05-03 09:10 | XMS_ITS | Encounter Summary ---
Author Organization [facility] Address [address] [place] [address] Care Team Providers Care Corrugated Fastener Driver Name Role Phone Nolberto Nicole MD Primary Care Provider [phone] Isidro Heredia MD Unavailable [phone] Reason for Visit * Reason Comments Follow-up RA Pain Hand swollen with pain Pa in Scale: 12/07 Stress lost father Encounter Details Date Type Department Care Team (Late st Contact Info) Description 02/12/2012 5:30 PM CDT Office Visit [facility] Medical [facility] - Rheumatology [address] [place] [address] Isidro Heredia MD [address] [place] [address] Rheumatoid arthritis (HCC) (Primary Dx); Triceps [...] Body Mass Index 35.58 05/15/2011 5:19 PM TIRE TRIMMER HAND documented in this encounter Progress Notes * [...] PO) Take by mouth once daily. ??? Mlftcqkywrl-Igkhvdysa-Iak C-Mn (GLUCOSAMINE CHONDR 1500 COMPLX PO) Take [...] st Contact Info) Description 06/03/2024 1:00 PM TIRE TRIMMER HAND Appointment [facility] - Rheumatology [address] [place] [address] 06/03/2024 2:00 PM TIRE TRIMMER HAND Office Visit [facility] - Rheumatology [address] [place] [address] [phone] Gloria Smith MD [address] [place] [phone] documented as of this encounter Procedures Procedure [...] PM CDT Narrative Resulting Agency Comment [facility] [address] [facility] ??[facility] [phone] Isidro Heredia MD LAB - HEMATOLOGY OR DERABLES [facility] ACCOUNT BILL * (ABNORMAL) C-REACTIVE PROTEIN (02/13/2012 8:47 AM CDT) C-Reactive Protein 5.4(H) 0.0 - 4.9 mg/L [facility] ACCOUNT BILL Blood specimen (specimen) BLOOD SPECIMEN / Unknown 02/13/2012 8:47 AM CDT 02/13/2012 6:02 PM CDT Narrative Resulting Agency Comment [facility] [address] [place] [address] ??[facility] [phone] Isidro Heredia MD LAB - CHEMISTRY ORD [...] CDT Narrative Resulting Agency Comment [facility] [address] ??[facility] [phone] Isidro Heredia MD LAB - CHEMISTRY ORD [...] CDT Narrative Resulting Agency Comment [facility] [address] ??[facility] [phone] Isidro Heredia MD LAB - HEMATOLOGY OR DERABLES [facility] ACCOUNT BILL documented in this encounter Visit Diagnoses Diagnosis Rheumatoid arthritis(714.0) (HCC)- Primary Rheumatoid arthritis Triceps tendonitis Other enthesopathy of elbow region Chronic pain syndrome documented in this encounter Care Teams Corrugated Fastener Driver Relationship Specialty Start Date End Date Nolberto Nicole MD PCP - General 07/21/08 12/30/13 Isidro Heredia MD Rheumatology 02/09/11 documented as of this encounter
--- OUTSIDE RECORDS SUMMARY | 2024-05-03 09:10 | XMS_ITS | Encounter Summary ---
Author Organization [facility] Address [address] [facility] [place] [address] Care Team Providers Care Animal Services Officer Name Role Phone Nolberto Nicole MD Primary [...] Referred To Contact Diagnoses Rheumatoid arthritis(714.0) ([facility]) Procedures [place] OFFICE VISIT DURING HOURS Nolberto Nicole MD [address] [place] [address] Isirdo Heredia MD [address] [place] [address] Referral ID Status Reason Start Date Expiration Date Visits Re quested Visits Authorized [id number] Closed 02/20/2012 08/18/2012 1 5 Encounter Details Date Type Department Care Team (Late st Contact Info) Description 04/08/2012 5:00 PM WEIR FISHER Office Visit [facility] - Rheumatology [address] [place] [address] Isidro Heredia MD [address] [place] [address] Rheumatoid arthritis (HCC) (Primary Dx); Chronic pain [...] Comments Blood Pressure 110/80 04/08/2012 5:48 PM WEIR FISHER Pulse 104 04/08/2012 5:48 PM WEIR FISHER Temperature - - Respiratory Rate - - Oxygen Saturation - - Inhaled Oxygen Concentration - - Weight 114.5 kg (252 lb 6.4 oz) 04/08/2012 5:48 PM WEIR FISHER Height - - Body Mass Index 36.22 05/15/2011 5:19 PM WEIR FISHER documented in this encounter Progress Notes * Rea Hagan MA - 04/17/2012 2:11 PM CSTQuick Note: Sent lab letter to pt FISHER * Isidro Heredia MD - 04/14/2012 8:28 PM CSTQuick Note: mtx ok FISHER * Isidro Heredia MD - 04/08/2012 6:04 [...] PO) Take by mouth once daily. ??? Yjiwituvawo-Zbuhyvlie-Upj C-Mn (GLUCOSAMINE CHONDR 1500 COMPLX PO) Take [...] Follow up in office in 4 weeks FISHER * Rea Hagan MA - 04/08/2012 5:50 PM CST Chief Complaint Patient presents with ??? Rheumatoid Arthritis new sx: racey heart, sob few times since the last visit. last episode on 03/31/12 ??? Upper Extremity Problem hands,shoulder ??? Lower Extremity Problem ankles, knees, hips ??? Swelling Hand obdulia BP 110/80 Pulse 104 Wt 252 lb 6.4 oz (114.488 kg) FISHER documented in this encounter Plan of Treatment Upcoming Encounters Date Type Department Care Team (Late st Contact Info) Description 06/03/2024 1:00 PM WEIR FISHER Appointment [facility] - Rheumatology [address] [place] [address] 06/03/2024 2:00 PM WEIR FISHER Office Visit [facility] - Rheumatology [address] [place] [address] [phone] Gloria Smith MD [address] [place] [phone] documented as of this encounter Procedures Procedure Name Priority Date/Time Associated Diagnosis Comments C-REACTIVE PROTEIN Routine 04/08/2012 6: 32 PM WEIR FISHER Rheumatoid arthritis (HCC) ERYTHROCYTE SEDIMENTATION RATE Routine 04/08/2012 6:32 PM WEIR FISHER Rheumatoid arthritis (HCC) CBC W AUTO DIFFERENTIAL Routine 04/08/2012 6:32 PM WEIR FISHER Rheumatoid arthritis (HCC) COMPREHENSIVE METABOLIC PANEL Routine 04/08/2012 6:32 PM WEIR FISHER Rheumatoid arthritis (HCC) documented in this encounter Results * SED RATE WESTERGREN (04/08/2012 6:32 PM WEIR FISHER) Erythrocyte Sedimentation Rate Westergren 12 0 - 15 mm/hr [facility] ACCOUNT BILL Blood specimen (specimen) BLOOD SPECIMEN / Unknown 04/08/2012 6:32 PM WEIR FISHER 04/08/2012 9:50 PM WEIR FISHER Narrative Resulting Agency Comment [facility] ??[facility] [phone] Isidro Heredia MD LAB - HEMATOLOGY OR DERABLES Performing Organization Address City/[facility] Co de Phone Number [facility] ACCOUNT BILL * (ABNORMAL) C-REACTIVE PROTEIN (04/08/2012 6:32 PM WEIR FISHER) C-Reactive Protein 8.6(H) 0.0 - 4.9 mg/L [facility] ACCOUNT BILL Blood specimen (specimen) BLOOD SPECIMEN / Unknown 04/08/2012 6:32 PM WEIR FISHER 04/08/2012 9:50 PM WEIR FISHER Narrative Resulting Agency Comment [facility] ??[facility] [phone] Isidro Heredia MD LAB - CHEMISTRY ORD ERABLES Performing Organization Address [facility] Co de Phone Number [facility] ACCOUNT BILL * (ABNORMAL) COMPREHENSIVE METABOLIC PANEL (04/08/2012 6:32 PM WEIR FISHER) Glucose 106(H) 65 - 99 mg/dL [facility] [...] BLOOD SPECIMEN / Unknown 04/08/2012 6:32 PM WEIR FISHER 04/08/2012 9:50 PM WEIR FISHER Narrative Resulting Agency Comment [facility] [address] ??[facility] [phone] Isidro Heredia MD LAB - CHEMISTRY ORD ERABLES [facility] ACCOUNT BILL * CBC W AUTO DIFFERENTIAL (04/08/2012 6:32 PM WEIR FISHER) WBC 8.1 4.0 - 10.5 x10E3/uL [facility] [...] BLOOD SPECIMEN / Unknown 04/08/2012 6:32 PM WEIR FISHER 04/08/2012 9:50 PM WEIR FISHER Narrative Resulting Agency Comment [facility] [address] ??[facility] [phone] Isidro Heredia MD LAB - HEMATOLOGY OR DERABLES [facility] ACCOUNT BILL documented in this encounter Visit Diagnoses Diagnosis Rheumatoid arthritis(714.0) (HCC)- Primary Rheumatoid arthritis Chronic pain syndrome Palpitations documented in this encounter Care Teams Animal Services Officer Relationship Specialty Start Date End Date Nolberto Nicole MD PCP - General 07/21/08 12/30/13 Isidro Heredia MD Rheumatology 02/09/11 documented as of this encounter
--- OUTSIDE RECORDS SUMMARY | 2024-05-03 09:10 | XMS_ITS | Encounter Summary ---
Author Organization [facility] Address [address] [place] [address] Care Team Providers Care Customer Engineering Specialist Name Role Phone Nolbetro Nicole MD Primary Care Provider [phone] Isidro Heredia MD Unavailable [phone] Reason for Visit * Reason Comments Cough Encounter Details Date Type Department Care Team (Latest Contact Info) Description 07/22/2012 4:15 PM CDT Procedure visit [facility] Family Medicine [address] [place] [address] Rheumatoid arthritis (HCC) Social History Tobacco [...] Contact Info) Description 06/03/2024 1:00 PM DISTRICT ATTORNEY Appointment [facility] - Rheumatology [address] [place] [address] 06/03/2024 2:00 PM DISTRICT ATTORNEY Office Visit [facility] - Rheumatology [address] [place] [address] Gloria Smith MD [address] [place] [phone] documented as of this encounter Procedures Procedure Name Priority Date/Time Associated Diagnosis Comments XR CHEST 2VW Routine 09/10/2012 4:17 PM CDT Rheumatoid arthritis (HCC) documented in this encounter Visit Diagnoses Diagnosis Rheumatoid arthritis(714.0) (HCC) Rheumatoid arthritis documented in this encounter Care Teams Customer Engineering Specialist Relationship Specialty Start Date End Date Nolberto Nicole MD PCP - General 07/21/08 12/30/13 Isidro Heredia MD Rheumatology 02/09/11 documented as of this encounter
--- OUTSIDE RECORDS SUMMARY | 2024-05-03 09:10 | XMS_ITS | Encounter Summary ---
Author Organization [facility] Address [address] [facility] [place] [address] Care Team Providers Care Publications Distribution Clerk Name Role Phone Nolberto Nicole MD Primary Care Provider Isidro Heredia MD Unavailable [phone] Encounter Details Date Type Department Care Team (Late st Contact Info) Description 08/19/2012 12:39 PM CDT - 08/19/2012 11:59 PM CDT Hospital Encounter [facility] Medical [facility] - Rheumatology [address] [place] [address] Isidro Heredia MD [address] [place] [address] Discharge Disposition: Home or Self Care [...] Foreman RN - 08/19/2012 1:01 PM CDT [place] Rheumatology Post Infusion instructions [...] through Sunday 9-5 call the office at [phone] After hours or on the weekend call the exchange at [phone] If you have had lab work done [...] Sig Dispensed Refills Start Date End Date Wpavwvsqkfq-Hagxcmche-Fp t C-Mn (GLUCOSAMINE CHONDR 1500 COMPLX PO) [...] 08/19/2012 1:02 PM CDT JOSE Chalino Deng [id number] 08/19/2012 Patient questionnaire results Health Assessment Questionnaire [...] st Contact Info) Description 06/03/2024 1:00 PM LEATHER SPLITTER Appointment [facility] - Rheumatology [address] [place] [address] 06/03/2024 2:00 PM LEATHER SPLITTER Office Visit [facility] - Rheumatology [address] [place] [address] Gloria Smith MD [address] [place] [phone] documented as of this encounter Visit [...] mg documented in this encounter Care Teams Publications Distribution Clerk Relationship Specialty Start Date End Date Nolberto Nicole MD PCP - General 07/21/08 12/30/13 Isidro Heredia MD Rheumatology 02/09/11 documented as of this encounter
--- OUTSIDE RECORDS SUMMARY | 2024-05-03 09:10 | XMS_ITS | Encounter Summary ---
Author Organization [facility] Address [address] [facility] [place] [address] Care Team Providers Care Reimbursement Specialist Name Role Phone Nolberto Nicole MD Primary Care Provider [phone] Isidro Heredia MD Unavailable Reason for Visit * Reason Comments Follow-up ra Pain Back lower. sharp pain mo re on the left. stabbing pain Swelling Hand obdulia Pain Lower Extremity ankles ans knees Fatigue * Evaluate & Treat (Routine) - Closed Specialty Diagnoses / Procedures Referred By Contac t Referred To Contact Diagnoses Rheumatoid arthritis(714.0) ([facility]) Procedures [place] OFFICE VISIT DURING HOURS Nolberto Nicole MD [address] [place] [address] Isidro Heredia MD [address] [place] [address] Referral ID Status Reason Start Date Expiration Date Visits Re quested Visits Authorized [id number] Closed 08/03/2011 01/30/2012 1 12 Encounter Details Date Type Department Care Team (Late st Contact Info) Description 10/09/2011 5:30 PM CDT Office Visit [facility] Next Generation [employer] [facility] - Rheumatology [address] [place] [address] [phone] Isidro Heredia MD [address] [facility] [place] [address] Rheumatoid arthritis (HCC) (Primary Dx); [...] Body Mass Index 34.87 05/15/2011 5:19 PM GLASS ROLLING MACHINE OPERATOR documented in this encounter Progress [...] PO) Take by mouth once daily. ??? Xcfaesxwjkd-Npucfoees-Gge C-Mn (GLUCOSAMINE CHONDR 1500 COMPLX PO) Take [...] st Contact Info) Description 06/03/2024 1:00 PM GLASS ROLLING MACHINE OPERATOR Appointment [facility] - Rheumatology [address] [place] [address] 06/03/2024 2:00 PM GLASS ROLLING MACHINE OPERATOR Office Visit [facility] - Rheumatology [address] [place] [address] Gloria Smith MD [address] [place] [phone] documented as of this encounter Procedures [...] PM CDT Narrative Resulting Agency Comment [facility] [address] [facility] ??[facility] [phone] Isidro Heredia MD LAB - HEMATOLOGY OR DERABLES [facility] ACCOUNT BILL * C-REACTIVE PROTEIN (10/09/2011 5:43 PM CDT) C-Reactive Protein 2.3 0.0 - 4.9 mg/L [facility] ACCOUNT BILL Blood specimen (specimen) BLOOD SPECIMEN / Unknown 10/09/2011 5:43 PM CDT 10/09/2011 10:15 PM CDT Narrative Resulting Agency Comment [facility] [address] ??[facility] [phone] Isidro Heredia MD LAB - CHEMISTRY ORD [...] CDT Narrative Resulting Agency Comment [facility] [address] ??[facility] [id number] Isidro Heredia MD LAB - CHEMISTRY ORD [...] CDT Narrative Resulting Agency Comment [facility] [address] ??[facility] [phone] Isidro Heredia MD LAB - HEMATOLOGY OR DERABLES [facility] ACCOUNT BILL documented in this encounter Visit Diagnoses Diagnosis Rheumatoid arthritis(714.0) (HCC)- Primary Rheumatoid arthritis Triceps tendonitis Other enthesopathy of elbow region LBP (low back pain) Lumbago documented in this encounter Care Teams Reimbursement Specialist Relationship Specialty Start Date End Date Nolberto Nicole MD PCP - General 07/21/08 12/30/13 Isidro Heredia MD Rheumatology 02/09/11 documented as of this encounter
--- OUTSIDE RECORDS SUMMARY | 2024-05-03 09:10 | XMS_ITS | Encounter Summary ---
Author Organization [facility] Address [address] [facility] [place] [address] Care Team Providers Care Conservation Science Teacher Name Role Phone Nolberto Nicole MD Primary Care Provider [phone] Isidro Heredia MD Unavailable [phone] Reason for Visit * Reason Comments Rheumatoid [...] shah Referred To Contact Diagnoses Rheumatoid arthritis(714.0) ([facility]) Procedures [place] OFFICE VISIT DURING HOURS Nolberto Nicole MD [address] [place] [address] Isidro Heredia MD [address] [place] [address] Referral ID Status Reason Start Date Expiration Date Visits Re quested Visits Authorized [id number] Closed 08/15/2012 02/11/2013 1 5 Encounter Details Date Type Department Care Team (Late st Contact Info) Description 10/14/2012 5:00 PM CDT Office Visit [facility] - Rheumatology [address] [place] [address] Isidro Heredia MD [facility] [place] [address] Rheumatoid arthritis (HCC) (Primary Dx); Chronic pain [...] PO) Take by mouth once daily. ??? Hzfunagokhk-Mseyhvaiv-Vpj C-Mn (GLUCOSAMINE CHONDR 1500 COMPLX PO) Take [...] st Contact Info) Description 06/03/2024 1:00 PM STENCILING MACHINE TENDER Appointment [facility] - Rheumatology [address] [place] [address] 06/03/2024 2:00 PM STENCILING MACHINE TENDER Office Visit [facility] - Rheumatology [address] [place] [address] Gloria Smith MD [address] [place] [phone] documented as of this encounter Procedures [...] CDT Narrative Resulting Agency Comment [facility] [address] [facility] ??[facility] [phone] Isidro Heredia MD LAB - HEMATOLOGY OR DERABLES [facility] ACCOUNT BILL * (ABNORMAL) C-REACTIVE PROTEIN (10/14/2012 5:46 PM CDT) C-Reactive Protein 8.4(H) 0.0 - 4.9 mg/L [facility] ACCOUNT BILL Blood specimen (specimen) BLOOD SPECIMEN / Unknown 10/14/2012 5:46 PM CDT 10/14/2012 7:28 PM CDT Narrative Resulting Agency Comment [facility] ??[facility] [phone] Isidro Heredia MD LAB - CHEMISTRY ORD ERABLES Performing Organization Address City/[facility]/ZIP Co de Phone Number [facility] ACCOUNT BILL [...] CDT Narrative Resulting Agency Comment [facility] [address] ??[facility] [phone] Isidro Heredia MD LAB - CHEMISTRY ORD [...] CDT Narrative Resulting Agency Comment [facility] [address] ??[facility] [phone] Isidro Heredia MD LAB - HEMATOLOGY OR DERABLES [facility] ACCOUNT BILL documented in this encounter Visit Diagnoses Diagnosis Rheumatoid arthritis(714.0) (HCC)- Primary Rheumatoid arthritis Chronic pain syndrome documented in this encounter Care Teams Conservation Science Teacher Relationship Specialty Start Date End Date Nolberto Nicole MD PCP - General 07/21/08 12/30/13 Isidro Heredia MD Rheumatology 02/09/11 documented as of this encounter
--- OUTSIDE RECORDS SUMMARY | 2024-05-03 09:10 | XMS_ITS | Encounter Summary ---
Author Organization [facility] Address [address] [facility] [place] [address] Care Team Providers Care Torpedo Man Name Role Phone Nolberto Nicole MD Primary Care Provider [phone] Isidro Heredia MD Unavailable [phone] Encounter Details Date Type Department Care Team (Late st Contact Info) Description 09/02/2012 8:57 AM CDT - 09/02/2012 11:59 PM CDT Hospital Encounter [facility] Medical [facility] - Rheumatology [address] [place] [address] Isidro Heredia MD [address] [place] [address] Discharge Disposition: Home or Self Care [...] Rodrigez RN - 09/02/2012 9:23 AM CDT [place] Rheumatology Post Infusion instructions [...] Sunday through 01-02 call the office at [phone] After hours or on the weekend call the exchange at [phone] If you have had lab work done [...] Sig Dispensed Refills Start Date End Date Pnyfqyyndhl-Vmvgcpfuo-Qj t C-Mn (GLUCOSAMINE CHONDR 1500 COMPLX PO) [...] - 09/02/2012 9:29 AM CDT JOSE Deng [id number] 09/02/2012 BP 143/95 Pulse 89 Temp 98.6 [...] Contact Info) Description 06/03/2024 1:00 PM ELECTRONIC PLOTTING SYSTEM OPERATOR Appointment [facility] - Rheumatology [address] [place] [address] 06/03/2024 2:00 PM ELECTRONIC PLOTTING SYSTEM OPERATOR Office Visit [facility] - Rheumatology [address] [place] [address] Gloria Smith MD [address] [place] [phone] documented as of this encounter Visit [...] mg documented in this encounter Care Teams Torpedo Man Relationship Specialty Start Date End Date Nolberto Nicole MD PCP - General 07/21/08 12/30/13 Isidro Heredia MD Rheumatology 02/09/11 documented as of this encounter
--- OUTSIDE RECORDS SUMMARY | 2024-05-03 09:10 | XMS_ITS | Encounter Summary ---
Author Organization [facility] Address [address] [facility] [place] [address] Care Team Providers Care Candle Wicker Name Role Phone Nolberto Nicole MD Primary Care Provider [phone] Isidro Heredia MD Unavailable Reason for Visit * Reason Comments Rheumatoid Arthritis pain scale: 5/10 am stiffness: yes tolerating meds well no fever no abdominal pain Upper Extremity Problem fingers and hand s are stiff * Consult, Test & Treat (Routine) - Closed Specialty Diagnoses / Procedures Referred By Contsarahi t Referred To Contact Diagnoses Rheumatoid arthritis(714.0) ([facility]) Procedures [place] OFFICE VISIT DURING HOURS Nolberto Nicole MD [address] [place] [address] Isidro Heredia MD [address] [place] [address] Referral ID Status Reason Start Date Expiration Date Visits Re quested Visits Authorized [id number] Closed 07/02/2012 12/29/2012 1 6 Encounter Details Date Type Department Care Team (Late st Contact Info) Description 08/19/2012 4:45 PM CDT Office Visit [facility] [employer] [facility] - Rheumatology [address] [place] [address] [phone] Isidro Heredia MD [address] [place] [address] Rheumatoid arthritis (HCC) (Primary Dx); [...] PO) Take by mouth once daily. ??? Jstgntqimew-Xfmoafmrf-Xen C-Mn (GLUCOSAMINE CHONDR 1500 COMPLX PO) Take [...] Contact Info) Description 06/03/2024 1:00 PM WOOD PATTERNMAKER Appointment [facility] - Rheumatology [address] [place] [address] 06/03/2024 2:00 PM WOOD PATTERNMAKER Office Visit [facility] - Rheumatology [address] [place] [address] Gloria Smith MD [address] [place] [phone] documented as of this encounter Visit Diagnoses Diagnosis Rheumatoid arthritis(714.0) (HCC)- Primary Rheumatoid arthritis Chronic pain syndrome documented in this encounter Care Teams Candle Wicker Relationship Specialty Start Date End Date Nolberto Nicole MD PCP - General 07/21/08 12/30/13 Isidro Heredia MD Rheumatology 02/09/11 documented as of this encounter
--- OUTSIDE RECORDS SUMMARY | 2024-05-03 09:10 | XMS_ITS | Encounter Summary ---
Author Organization [facility] Address [address] [facility] [place] [address] Care Team Providers Care Library Aide Name Role Phone Nolberto Nciole MD Primary Care Provider Isidro Heredia MD [...] shah Referred To Contact Diagnoses Rheumatoid arthritis(714.0) ([facility]) Procedures [place] OFFICE VISIT DURING HOURS Nolberto Nicole MD [address] [place] [address] Isidro Heredia MD [address] [place] [address] Referral ID Status Reason Start Date Expiration Date Visits Re quested Visits Authorized [id number] Closed 02/20/2012 08/18/2012 1 5 Encounter Details Date Type Department Care Team (Late st Contact Info) Description 06/24/2012 5:00 PM KITCHEN MANAGER Office Visit [facility] - Rheumatology [address] [place] [address] Isidro Heredia MD [address] [place] [address] ZOHAIB ESPINO [id number] Rheumatoid arthritis (HCC) (Primary Dx); Headache Social [...] Comments Blood Pressure 110/86 06/24/2012 5:31 PM KITCHEN MANAGER Pulse 80 06/24/2012 5:31 PM KITCHEN MANAGER Temperature 36.8 ??C (98.2 ??F) 06/24/2012 5:31 PM CS T Respiratory Rate - - Oxygen Saturation - - Inhaled Oxygen Concentration - - Weight 111.6 kg (246 lb) 06/24/2012 5:31 PM KITCHEN MANAGER Height - - Body Mass Index 35.3 05/15/2011 5:19 PM KITCHEN MANAGER documented in this encounter Progress Notes * Yamileth Rodríguez MA - 07/01/2012 11:45 AM CSTQuick Note: Letter mailed to patient regarding alb results. HEN MANAGER * Isidro Heredia MD - 06/30/2012 5:16 PM CSTQuick Note: mtx ok HEN MANAGER * Isidro Heredia MD - 06/30/2012 5:15 PM CSTQuick Note: mtx ok HEN MANAGER * Isidro Heredia MD - 06/24/2012 5:55 [...] PO) Take by mouth once daily. ??? Yxpkrbnsytv-Jymdvstfr-Iwq C-Mn (GLUCOSAMINE CHONDR 1500 COMPLX PO) Take [...] Follow up in office in 4 weeks HEN MANAGER * Rea Hagan MA - 06/24/2012 5:33 [...] 98.2 ??F Wt 246 lb (111.585 kg) HEN MANAGER documented in this encounter Plan of Treatment Upcoming Encounters Date Type Department Care Team (Late st Contact Info) Description 06/03/2024 1:00 PM KITCHEN MANAGER Appointment [facility] - Rheumatology [address] [place] [address] 06/03/2024 2:00 PM KITCHEN MANAGER Office Visit [facility] - Rheumatology [address] [place] [address] Gloria Smith MD [address] [place] [phone] documented as of this encounter Procedures Procedure Name Priority Date/Time Associated Diagnosis Comments C-REACTIVE PROTEIN Routine 06/24/2012 6: 12 PM KITCHEN MANAGER Rheumatoid arthritis (HCC) ERYTHROCYTE SEDIMENTATION RATE Routine 06/24/2012 6:12 PM KITCHEN MANAGER Rheumatoid arthritis (HCC) CBC W AUTO DIFFERENTIAL Routine 06/24/2012 6:12 PM KITCHEN MANAGER Rheumatoid arthritis (HCC) COMPREHENSIVE METABOLIC PANEL Routine 06/24/2012 6:12 PM KITCHEN MANAGER Rheumatoid arthritis (HCC) documented in this encounter Results * (ABNORMAL) SED RATE WESTERGREN (06/24/2012 6:12 PM KITCHEN MANAGER) Erythrocyte Sedimentation Rate Westergren 37(H) 0 - 15 mm/hr [facility] ACCOUNT BILL Blood specimen (specimen) BLOOD SPECIMEN / Unknown 06/24/2012 6:12 PM KITCHEN MANAGER 06/24/2012 7:33 PM KITCHEN MANAGER Narrative Resulting Agency Comment [facility] [place] [address] ??[facility] [phone] Isidro Heredia MD LAB - HEMATOLOGY OR DERABLES [facility] ACCOUNT BILL * C-REACTIVE PROTEIN (06/24/2012 6:12 PM KITCHEN MANAGER) C-Reactive Protein 4.2 0.0 - 4.9 mg/L [facility] ACCOUNT BILL Blood specimen (specimen) BLOOD SPECIMEN / Unknown 06/24/2012 6:12 PM KITCHEN MANAGER 06/24/2012 7:33 PM KITCHEN MANAGER Narrative Resulting Agency [facility] [place] [address] [facility] ??[facility] [phone] Isidro Heredia MD LAB - CHEMISTRY ORD ERABLES [facility] ACCOUNT BILL * (ABNORMAL) COMPREHENSIVE METABOLIC PANEL (06/24/2012 6:12 PM KITCHEN MANAGER) Glucose 101(H) 65 - 99 mg/dL [facility] [...] BLOOD SPECIMEN / Unknown 06/24/2012 6:12 PM KITCHEN MANAGER 06/24/2012 7:33 PM KITCHEN MANAGER Narrative Resulting Agency Comment [facility] [address] ??[facility] [phone] Isidro Heredia MD LAB - CHEMISTRY ORD ERABLES [facility] ACCOUNT BILL * (ABNORMAL) CBC W AUTO DIFFERENTIAL (06/24/2012 6:12 PM KITCHEN MANAGER) WBC 10.9(H) 4.0 - 10.5 x10E3/uL [facility] [...] BLOOD SPECIMEN / Unknown 06/24/2012 6:12 PM KITCHEN MANAGER 06/24/2012 7:33 PM KITCHEN MANAGER Narrative Resulting Agency Comment [facility] [address] ??[facility] [id number] Isidro Heredia MD LAB - HEMATOLOGY OR DERABLES [facility] ACCOUNT BILL documented in this encounter Visit Diagnoses Diagnosis Rheumatoid arthritis(714.0) (HCC)- Primary Rheumatoid arthritis Headache(784.0) Headache documented in this encounter Care Teams Library Aide Relationship Specialty Start Date End Date Nolberto Nicole MD PCP - General 3/24/09 9/2/14 Isidro Heredia MD Rheumatology 02/09/11 documented as of this encounter
--- OUTSIDE RECORDS SUMMARY | 2024-05-03 09:10 | XMS_ITS | Encounter Summary ---
Author Organization [facility] Address [address] [place] [address] Care Team Providers Care Crm Specialist Name Role Phone Nolberto Nicole MD Primary Care Provider Isidro Heredia MD Unavailable [phone] Reason for Visit * Reason Onset Date Comments Follow-up 04/15/2012 Encounter Details Date Type Department Care Team (Late st Contact Info) Description 04/15/2012 Telephone [facility] - Rheumatology [address] [place] [address] Isidro Heredia MD [address] [place] [address] Follow-up Social History Tobacco Use Types [...] 4:07 PM CST Informed pharmacy of note BAKERY LABORER * Telephone Encounter - Rea Hagan MA - 04/15/2012 3:12 PM CST Please call pharm and let them know pt to take Prednisone bid. Thanks! BAKERY LABORER * Telephone Encounter - ParrishYasmeen - 04/15/2012 9:26 AM CST [facility] CALLED 2 DIFF INSTRUCTIONS ON HIS PREDINSONE 1 ONCE DAILY THEN IT SAYS 1 IN AM 1 PM PLEASE CALL BACK TO CONFIRM [phone] BAKERY LABORER documented in this encounter Plan of Treatment Upcoming Encounters Date Type Department Care Team (Late st Contact Info) Description 06/03/2024 1:00 PM PIE BAKERY LABORER Appointment [facility] - Rheumatology [address] [place] [address] 06/03/2024 2:00 PM PIE BAKERY LABORER Office Visit [facility] - Rheumatology [address] [place] [address] Gloria Smith MD [address] [place] [phone] documented as of this encounter Visit Diagnoses Not on filedocumented in this encounter Care Teams Crm Specialist Relationship Specialty Start Date End Date Nolberto Nicole MD PCP - General 07/21/08 12/30/13 Isidro Heredia MD Rheumatology 02/09/11 documented as of this encounter
--- OUTSIDE RECORDS SUMMARY | 2024-05-03 09:10 | XMS_ITS | Encounter Summary ---
Author Organization [facility] Address [address] [facility] [place] [address] Care Team Providers Care Planer Off Bearer Name Role Phone Nolberto Nicole MD Primary Care Provider [phone] Isidro Heredia MD Unavailable [phone] Reason for Visit * Reason Comments Follow-up ra Pain Arm difficult to lift le ft arm. very sore. Swelling Hand obdulia Pain Knee obdulia Fatigue Pain Wrist obdulia Encounter Details Date Type Department Care Team (Late st Contact Info) Description 09/04/2011 4:30 PM CDT Office Visit [facility] - Rheumatology [address] [place] [address] Isidro Heredia MD [address] [place] [address] Rheumatoid arthritis (HCC) (Primary Dx); Triceps [...] Body Mass Index 34.72 05/15/2011 5:19 PM CAR MANAGER documented in this encounter Progress Notes [...] PO) Take by mouth once daily. ??? Rxaydkjyfpr-Bvbskucon-Pdo C-Mn (GLUCOSAMINE CHONDR 1500 COMPLX PO) Take [...] Contact Info) Description 06/03/2024 1:00 PM CAR MANAGER Appointment [facility] - Rheumatology [address] [place] [address] 06/03/2024 2:00 PM CAR MANAGER Office Visit [facility] - Rheumatology [address] [place] [address] Gloria Smith MD [address] [place] [phone] documented as of this encounter Procedures [...] PM CDT Narrative Resulting Agency Comment [facility] [address] [facility] ??[facility] [phone] Isidro Heredia MD LAB - HEMATOLOGY OR DERABLES [facility] ACCOUNT BILL * (ABNORMAL) C-REACTIVE PROTEIN (09/04/2011 5:14 PM CDT) C-Reactive Protein 5.2(H) 0.0 - 4.9 mg/L [facility] ACCOUNT BILL Blood specimen (specimen) BLOOD SPECIMEN / Unknown 09/04/2011 5:14 PM CDT 09/04/2011 9:51 PM CDT Narrative Resulting Agency Comment [facility] [place] [address] [facility] ??[facility] [id number] Isidro Heredia MD LAB - CHEMISTRY ORD [...] PM CDT Narrative Resulting Agency Comment [facility] [place] [address] [facility] ??[facility] [id number] Isidro Heredia MD LAB - CHEMISTRY ORD [...] PM CDT Narrative Resulting Agency Comment [facility] [place] [address] [facility] ??[facility] [phone] Isidro Heredia MD LAB - HEMATOLOGY OR DERABLES [facility] ACCOUNT BILL documented in this encounter Visit Diagnoses Diagnosis Rheumatoid arthritis(714.0) ([facility])- Primary Rheumatoid arthritis Triceps tendonitis Other enthesopathy of elbow region Subacromial bursitis Other specified disorders of rotator cuff syndrome of shoulder and allied disorders documented in this encounter Care Teams Planer Off Bearer Relationship Specialty Start Date End Date Nolberto Nicole MD PCP - General 07/21/08 12/30/13 Isidro Heredia MD Rheumatology 02/09/11 documented as of this encounter
--- OUTSIDE RECORDS SUMMARY | 2024-05-03 09:10 | XMS_ITS | Encounter Summary ---
Author Organization [facility] Address [address] [facility] [place] [address] Care Team Providers Care Piano Regulator Inspector Name Role Phone Nolberto Nicole MD Primary Care Provider Isidro Heredia MD Unavailable [phone] Reason for Visit * Reason Comments Rheumatoid Arthritis pain scale: 7/10 am stiffness: all day tolerating meds well diarrhea:yes General since on the Rituxan her feels very industrial cleaner the inside, no temp, off and on chills, joint soreness including whole spine, not sleeoing well get up 3-4 times a night Fatigue * Consult, Test & Treat (Routine) - Closed Specialty Diagnoses / Procedures Referred By Contsarahi t Referred To Contact Diagnoses Rheumatoid arthritis(714.0) ([facility]) Procedures [place] OFFICE VISIT DURING HOURS Nolbetro Nicole MD [address] [place] [address] Isidro Heredia MD [address] [place] [address] Referral ID Status Reason Start Date Expiration Date Visits Re quested Visits Authorized [id number] Closed 07/02/2012 12/29/2012 1 6 Encounter Details Date Type Department Care Team (Late st Contact Info) Description 09/16/2012 5:00 PM CDT Office Visit [facility] - Rheumatology [address] [place] [address] Isidro Heredia MD [address] [facility] [place] [address] Rheumatoid arthritis (HCC) (Primary Dx); Chronic pain [...] since on the Rituxan her feels very industrial cleaner the inside, no temp, off and on [...] PO) Take by mouth once daily. ??? Edjakcjncvi-Xfonszmxp-Yuw C-Mn (GLUCOSAMINE CHONDR 1500 COMPLX PO) Take [...] since on the Rituxan her feels very industrial cleaner the inside, no temp, off and on chills, joint soreness including whole spine, not sleeoing well get up 3-4 times a night ??? Fatigue BP 110/84 Pulse 80 Wt 250 lb 6.4 oz (113.581 kg) documented in this encounter Plan of Treatment Upcoming Encounters Date Type Department Care Team (Late st Contact Info) Description 06/03/2024 1:00 PM WOOL HANDLER Appointment [facility] - Rheumatology [address] [place] [address] 06/03/2024 2:00 PM WOOL HANDLER Office Visit [facility] - Rheumatology [address] [place] [address] Gloria Smith MD [address] [place] [phone] documented as of this encounter Visit Diagnoses Diagnosis Rheumatoid arthritis(714.0) (HCC)- Primary Rheumatoid arthritis Chronic pain syndrome documented in this encounter Care Teams Piano Regulator Inspector Relationship Specialty Start Date End Date Nolberto Nicole MD PCP - General 07/21/08 12/30/13 Isidro Heredia MD Rheumatology 02/09/11 documented as of this encounter
--- OUTSIDE RECORDS SUMMARY | 2024-05-03 09:10 | XMS_ITS | Encounter Summary ---
Author Organization [facility] Address [address] [facility] [place] [address] Care Team Providers Care Hydrostatic Tubing Tester Name Role Phone Nolberto Nicole MD Primary Care Provider [phone] Isidro Heredia MD Unavailable [phone] Encounter Details Date Type Department Care Team (Late st Contact Info) Description 09/02/2012 Orders Only [facility] - Rheumatology [address] [place] [address] [phone] Isidro Heredia MD [address] [place] [address] Rheumatoid arthritis (HCC) Social History Tobacco [...] st Contact Info) Description 06/03/2024 1:00 PM SAMPLER PICKUP Appointment [facility] - Rheumatology [address] [place] [address] [phone] 06/03/2024 2:00 PM SAMPLER PICKUP Office Visit [facility] - Rheumatology [address] [place] [address] Gloria Smith MD [address] [place] [phone] documented as of this encounter Procedures Procedure [...] PM CDT Narrative Resulting Agency Comment [facility] [place] [address] [facility] ??[facility] [phone] Isidro Heredia MD LAB - HEMATOLOGY OR [...] PM CDT Narrative Resulting Agency Comment [facility] [address] ??[facility] [phone] Isidro Heredia MD LAB - CHEMISTRY ORD [...] PM CDT Narrative Resulting Agency Comment [facility] [address] ??[facility] [phone] Isidro Heredia MD LAB - HEMATOLOGY OR DERABLES [facility] ACCOUNT BILL documented in this encounter Visit Diagnoses Diagnosis Rheumatoid arthritis(714.0) (HCC)- Primary Rheumatoid arthritis documented in this encounter Care Teams Hydrostatic Tubing Tester Relationship Specialty Start Date End Date Nolberto Nicole MD PCP - General 07/21/08 12/30/13 Isidro Heredia MD Rheumatology 02/09/11 documented as of this encounter
--- OUTSIDE RECORDS SUMMARY | 2024-05-03 09:10 | XMS_ITS | Encounter Summary ---
Author Organization [facility] Address [address] [facility] [place] [address] Care Team Providers Care Patch Driller Name Role Phone Nolberto Nicole MD [...] shah Referred To Contact Diagnoses Rheumatoid arthritis(714.0) ([facility]) Procedures [place] OFFICE VISIT DURING HOURS Nolberto Nicoel MD [address] [place] [address] Isidro Heredia MD [address] [place] [address] Referral ID Status Reason Start Date Expiration Date Visits Re quested Visits Authorized [id number] Closed 02/20/2012 08/18/2012 1 5 Encounter Details Date Type Department Care Team (Late st Contact Info) Description 05/27/2012 5:00 PM FACULTY MEMBER Office Visit [facility] - Rheumatology [address] [place] [address] Isidro Heredia MD [address] [place] [address] Rheumatoid arthritis (HCC) (Primary Dx); Subacromial bursitis [...] Comments Blood Pressure 130/72 05/27/2012 5:38 PM FACULTY MEMBER Pulse 80 05/27/2012 5:38 PM FACULTY MEMBER Temperature 36.8 ??C (98.2 ??F) 05/27/2012 5:38 PM CS T Respiratory Rate - - Oxygen Saturation - - Inhaled Oxygen Concentration - - Weight 112.9 kg (248 lb 12.8 oz) 05/27/2012 5:38 PM FACULTY MEMBER Height - - Body Mass Index 35.7 05/15/2011 5:19 PM FACULTY MEMBER documented in this encounter Progress Notes * Isidro Heredia MD - 06/03/2012 7:00 AM CSTQuick Note: mtx ok LTY MEMBER * Isidro Heredia MD - 05/27/2012 5:59 [...] PO) Take by mouth once daily. ??? Gorfoamgohq-Unautkyky-Lpg C-Mn (GLUCOSAMINE CHONDR 1500 COMPLX PO) Take [...] C-REACTIVE PROTEIN ??? SED RATE WESTERGREN ??? NM DRAIN/INJECT LARGE JOINT/BURSA ??? oxycodone-acetaminophen (PERCOCET) 5-325 [...] Follow up in office in 4 weeks LTY MEMBER * Rea Hagan MA - 05/27/2012 5:41 [...] Wt 112.855 kg (248 lb 12.8 oz) LTY MEMBER documented in this encounter Plan of Treatment Upcoming Encounters Date Type Department Care Team (Late st Contact Info) Description 06/03/2024 1:00 PM FACULTY MEMBER Appointment [facility] - Rheumatology [address] [place] [address] 06/03/2024 2:00 PM FACULTY MEMBER Office Visit [facility] - Rheumatology [address] [place] [address] Gloria Smith MD [address] [place] [phone] documented as of this encounter Procedures Procedure Name Priority Date/Time Associated Diagnosis Comments C-REACTIVE PROTEIN Routine 05/27/2012 6: 20 PM FACULTY MEMBER Rheumatoid arthritis (HCC) ERYTHROCYTE SEDIMENTATION RATE Routine 05/27/2012 6:20 PM FACULTY MEMBER Rheumatoid arthritis (HCC) CBC W AUTO DIFFERENTIAL Routine 05/27/2012 6:20 PM FACULTY MEMBER Rheumatoid arthritis (HCC) COMPREHENSIVE METABOLIC PANEL Routine 05/27/2012 6:20 PM FACULTY MEMBER Rheumatoid arthritis (HCC) documented in this encounter Results * (ABNORMAL) SED RATE WESTERGREN (05/27/2012 6:20 PM FACULTY MEMBER) Erythrocyte Sedimentation Rate Westergren 22(H) 0 - 15 mm/hr [facility] ACCOUNT BILL Blood specimen (specimen) BLOOD SPECIMEN / Unknown 05/27/2012 6:20 PM FACULTY MEMBER 05/27/2012 7:35 PM FACULTY MEMBER Narrative Resulting Agency Comment [facility] [place] [id number] ??[facility] [id number] Isidro Heredia MD LAB - HEMATOLOGY OR DERABLES [facility] ACCOUNT BILL * C-REACTIVE PROTEIN (05/27/2012 6:20 PM FACULTY MEMBER) C-Reactive Protein 2.9 0.0 - 4.9 mg/L [facility] ACCOUNT BILL Blood specimen (specimen) BLOOD SPECIMEN / Unknown 05/27/2012 6:20 PM FACULTY MEMBER 05/27/2012 7:35 PM FACULTY MEMBER Narrative Resulting Agency Comment [facility] [place] [address] ??[facility] [phone] Isidro Heredia MD LAB - CHEMISTRY ORD ERABLES [facility] ACCOUNT BILL * (ABNORMAL) COMPREHENSIVE METABOLIC PANEL (05/27/2012 6:20 PM FACULTY MEMBER) Glucose 93 65 - 99 mg/dL [facility] [...] BLOOD SPECIMEN / Unknown 05/27/2012 6:20 PM FACULTY MEMBER 05/27/2012 7:35 PM FACULTY MEMBER Narrative Resulting Agency Comment [facility] [address] ??[facility] [phone] Isidro Heredia MD LAB - CHEMISTRY ORD ERABLES [facility] ACCOUNT BILL * (ABNORMAL) CBC W AUTO DIFFERENTIAL (05/27/2012 6:20 PM FACULTY MEMBER) WBC 11.1(H) 4.0 - 10.5 x10E3/uL [facility] [...] BLOOD SPECIMEN / Unknown 05/27/2012 6:20 PM FACULTY MEMBER 05/27/2012 7:35 PM FACULTY MEMBER Narrative Resulting Agency Comment [facility] [address] ??[facility] [phone] Isidro Heredia MD LAB - HEMATOLOGY OR DERABLES [facility] ACCOUNT BILL documented in this encounter Visit Diagnoses Diagnosis Rheumatoid arthritis(714.0) ([facility])- Primary Rheumatoid arthritis Subacromial bursitis Other specified disorders of rotator cuff syndrome of shoulder and allied disorders documented in this encounter Care Teams Patch Driller Relationship Specialty Start Date End Date Nolberto Nicole MD PCP - General 07/21/08 12/30/13 Isidro Heredia MD Rheumatology 02/09/11 documented as of this encounter
--- OUTSIDE RECORDS SUMMARY | 2024-05-03 09:11 | XMS_ITS | Encounter Summary ---
Author Organization [facility] Address [address] [place] [address] [place] [address] Care Team Providers Care Surveillance Inspector Name Role Phone Nolberto Nicole MD Primary Care Provider [phone] Reason for Visit * Reason Onset Date Comments MEDICATION REFILL 10/26/2009 Encounter Details Date Type Department Care Team (Late st Contact Info) Description 10/26/[address] [facility] - Rheumatology [address] [place] [address] [phone] Isidro Heredia MD [address] [place] [address] [phone] MEDICATION REFILL Social History Tobacco Use Types [...] Contact Info) Description 06/03/2024 1:00 PM MOTOR GENERATOR SET OPERATOR Appointment [facility] - Rheumatology [address] [place] [address] 06/03/2024 2:00 PM MOTOR GENERATOR SET OPERATOR Office Visit [facility] - Rheumatology [address] [place] [address] Gloria Smith MD [address] [place] [phone] documented as of this encounter Visit Diagnoses Not on filedocumented in this encounter Care Teams Surveillance Inspector Relationship Specialty Start Date End Date Nolberto Nicole MD PCP - General 07/21/08 12/30/13 documented as of this encounter
--- OUTSIDE RECORDS SUMMARY | 2024-05-03 09:11 | XMS_ITS | Encounter Summary ---
Author Organization [facility] Address [address] [place] [address] Care Team Providers Care Kerfer Machine Operator Name Role Phone Nolberto Nicole MD Primary Care Provider [phone] Reason for Visit * Reason Comments Pain Hand with swelling. (rt) Pain Knee rt. with some swelli ng Shoulder Pain rt Encounter Details Date Type Department Care Team (Late st Contact Info) Description 12/12/2010 5:15 PM CDT Office Visit [facility] - Rheumatology [address] [place] [address] Isidro Heredia MD [address] [place] [address] Rheumatoid arthritis (HCC) (Primary Dx); Triceps [...] - 12/12/2010 6:13 PM CDT Subjective: Chalino Dneg 50 y.o. male Chief Complaint Patient presents [...] Contact Info) Description 06/03/2024 1:00 PM SENIOR OPERATOR Appointment [facility] - Rheumatology [address] [place] [address] [phone] 06/03/2024 2:00 PM SENIOR OPERATOR Office Visit [facility] - Rheumatology [address] [place] [address] Gloria Smith MD [address] [place] [phone] documented as of this encounter Procedures [...] PM CDT Narrative Resulting Agency Comment [facility] [place] [address] [facility] ??[facility] [phone] Isidro Heredia MD LAB - HEMATOLOGY OR DERABLES [facility] ACCOUNT BILL * (ABNORMAL) C-REACTIVE PROTEIN (12/12/2010 6:06 PM CDT) C-Reactive Protein 5.2(H) 0.0 - 4.9 mg/L [facility] ACCOUNT BILL BLOOD SPECIMEN / Unknown 12/12/2010 6:06 PM CDT 12/12/2010 8:59 PM CDT Narrative Resulting Agency Comment [facility] [address] ??[facility] [phone] Isidro Heredia MD LAB - CHEMISTRY ORD [...] CDT Narrative Resulting Agency Comment [facility] [address] ??[facility] [phone] Isidro Heredia MD LAB - HEMATOLOGY OR [...] CDT Narrative Resulting Agency Comment [facility] [address] ??[facility] [phone] Isidro Heredia MD LAB - CHEMISTRY ORD ERABLES [facility] ACCOUNT BILL documented in this encounter Visit Diagnoses Diagnosis Rheumatoid arthritis(714.0) (HCC)- Primary Rheumatoid arthritis Triceps tendonitis Other enthesopathy of elbow region documented in this encounter Care Teams Kerfer Machine Operator Relationship Specialty Start Date End Date Nolberto Nicole MD PCP - General 07/21/08 12/30/13 documented as of this encounter
--- OUTSIDE RECORDS SUMMARY | 2024-05-03 09:11 | XMS_ITS | Encounter Summary ---
Author Organization [facility] Address [address] [place] [address] Care Team Providers Care Manager Video Name Role Phone Nolberto Nicole MD Primary Care Provider Isidro Heredia MD Unavailable [phone] Reason for Visit * Reason Comments Follow-up ra Stiff Hand obdulia Encounter Details Date Type Department Care Team (Late st Contact Info) Description 03/20/2011 4:45 PM PROPOSAL DEVELOPMENT MANAGER Office Visit [facility] - Rheumatology [address] [place] [address] Isidro Heredia MD [address] [place] [address] Rheumatoid arthritis (HCC) (Primary Dx); Triceps [...] Comments Blood Pressure 120/80 03/20/2011 5:10 PM PROPOSAL DEVELOPMENT MANAGER Pulse 76 03/20/2011 5:10 PM PROPOSAL DEVELOPMENT MANAGER Temperature - - Respiratory Rate - - Oxygen Saturation - - Inhaled Oxygen Concentration - - Weight 108.9 kg (240 lb) 03/20/2011 5:10 PM PROPOSAL DEVELOPMENT MANAGER Height - - Body Mass Index 34.44 02/08/2009 5:43 PM CDT documented in this encounter Progress Notes * Isidro Heredia MD - 03/26/2011 5:36 PM CSTQuick Note: mtx ok See if we requested his old records OSAL DEVELOPMENT MANAGER * Isidro Heredia MD - 03/20/2011 5:10 [...] PO) Take by mouth once daily. ??? Hnjviqxvxtp-Xnkzznsss-Lqx C-Mn (GLUCOSAMINE CHONDR 1500 COMPLX PO) Take [...] Get old records to verify previous biologics OSAL DEVELOPMENT MANAGER * Bentley Rea YouJED Thibodeaux - 03/20/2011 5:10 PM CST Chief Complaint Patient presents with ??? Follow-up ra ??? Stiff Hand obdulia BP 120/80 Pulse 76 Wt 240 lb (108.863 kg) OSAL DEVELOPMENT MANAGER documented in this encounter Plan of Treatment Upcoming Encounters Date Type Department Care Team (Late st Contact Info) Description 06/03/2024 1:00 PM PROPOSAL DEVELOPMENT MANAGER Appointment [facility] - Rheumatology [address] [place] [address] 06/03/2024 2:00 PM PROPOSAL DEVELOPMENT MANAGER Office Visit [facility] - Rheumatology [address] [place] [address] Gloria Smith MD [address] [place] [phone] Scheduled Orders Name Type Priority Associated Diagnoses Orde r Schedule CBC W AUTO DIFFERENTIAL Lab Routine Rheumatoid arthritis ([facility]) Ordered: 03/20/2011 COMPREHENSIVE METABOLIC PANEL Lab Routine Rheumatoid arthritis ([facility]) Ordered: 03/20/2011 C-REACTIVE PROTEIN Lab Routine Rheumatoid arthritis ([facility]) Ordered: 03/20/2011 SED RATE WESTERGREN AUTO Lab Routine Rheumatoid arthritis (HCC) Ordered: 03/20/2011 documented as of this encounter Procedures Procedure Name Priority Date/Time Associated Diagnosis Comments C-REACTIVE PROTEIN Routine 03/20/2011 5: 07 PM PROPOSAL DEVELOPMENT MANAGER Rheumatoid arthritis (HCC) ERYTHROCYTE SEDIMENTATION RATE Routine 03/20/2011 5:07 PM PROPOSAL DEVELOPMENT MANAGER Rheumatoid arthritis (HCC) CBC W AUTO DIFFERENTIAL Routine 03/20/2011 5:07 PM PROPOSAL DEVELOPMENT MANAGER Rheumatoid arthritis (HCC) COMPREHENSIVE METABOLIC PANEL Routine 03/20/2011 5:07 PM PROPOSAL DEVELOPMENT MANAGER Rheumatoid arthritis (HCC) documented in this encounter Results * SED RATE WESTERGREN AUTO (03/20/2011 5:07 PM PROPOSAL DEVELOPMENT MANAGER) Erythrocyte Sedimentation Rate Westergren 11 0 - 23 mm/hr [facility] ACCOUNT BILL Blood specimen (specimen) BLOOD SPECIMEN / Unknown 03/20/2011 5:07 PM PROPOSAL DEVELOPMENT MANAGER 03/20/2011 9:58 PM PROPOSAL DEVELOPMENT MANAGER Narrative Resulting Agency Comment [facility] ??[facility] [phone] Isidro Heredia MD LAB - HEMATOLOGY OR DERABLES [facility] ACCOUNT BILL * C-REACTIVE PROTEIN (03/20/2011 5:07 PM PROPOSAL DEVELOPMENT MANAGER) C-Reactive Protein 1.6 0.0 - 4.9 mg/L [facility] ACCOUNT BILL Blood specimen (specimen) BLOOD SPECIMEN / Unknown 03/20/2011 5:07 PM PROPOSAL DEVELOPMENT MANAGER 03/20/2011 9:58 PM PROPOSAL DEVELOPMENT MANAGER Narrative Resulting Agency Comment [facility] ??[facility] [phone] Isidro Heredia MD LAB - CHEMISTRY ORD ERABLES [facility] ACCOUNT BILL * COMPREHENSIVE METABOLIC PANEL (03/20/2011 5:07 PM PROPOSAL DEVELOPMENT MANAGER) Glucose 97 65 - 99 mg/dL [facility] [...] BLOOD SPECIMEN / Unknown 03/20/2011 5:07 PM PROPOSAL DEVELOPMENT MANAGER 03/20/2011 9:58 PM PROPOSAL DEVELOPMENT MANAGER Narrative Resulting Agency Comment [facility] [address] ??[facility] [phone] Isidro Heredia MD LAB - CHEMISTRY ORD ERABLES [facility] ACCOUNT BILL * (ABNORMAL) CBC W AUTO DIFFERENTIAL (03/20/2011 5:07 PM PROPOSAL DEVELOPMENT MANAGER) WBC 8.2 4.0 - 10.5 x10E3/uL [facility] [...] BLOOD SPECIMEN / Unknown 03/20/2011 5:07 PM PROPOSAL DEVELOPMENT MANAGER 03/20/2011 9:58 PM PROPOSAL DEVELOPMENT MANAGER Narrative Resulting Agency Comment [facility] [address] ??[facility] [phone] Isidro Heredia MD LAB - HEMATOLOGY OR DERABLES Performing Organization Address City/State/[place] Co de Phone Number [facility] ACCOUNT BILL documented in this encounter Visit Diagnoses Diagnosis Rheumatoid arthritis(714.0) ([facility])- Primary Rheumatoid arthritis Triceps tendonitis Other enthesopathy of elbow region documented in this encounter Care Teams Manager Video Relationship Specialty Start Date End Date Nolberto Nicole MD PCP - General 07/21/08 12/30/13 Isidro Heredia MD Rheumatology 02/09/11 documented as of this encounter
--- OUTSIDE RECORDS SUMMARY | 2024-05-03 09:11 | XMS_ITS | Encounter Summary ---
Author Organization [facility] Address [address] [facility] [place] [address] Care Team Providers Care Seals Engraver Name Role Phone Nolberto Nicole MD Primary Care Provider [phone] Reason for Visit * Reason Comments Follow-up Ra Pain Scale: 7/10 Am Stiffness: 1 -2 hours Sleep: 5 hours Fatigue: yes Encounter Details Date Type Department Care Team (Late st Contact Info) Description 10/03/2010 5:00 PM CDT Office Visit [facility] - Rheumatology [address] [place] [address] Isidro Heredia MD [address] [place] [address] Rheumatoid arthritis (HCC) (Primary Dx); Triceps [...] st Contact Info) Description 06/03/2024 1:00 PM CORPORATE OPERATIONS COMPLIANCE MANAGER Appointment [facility] - Rheumatology [address] [place] [address] 06/03/2024 2:00 PM CORPORATE OPERATIONS COMPLIANCE MANAGER Office Visit [facility] - Rheumatology [address] [place] [address] Gloria Smith MD [address] [place] [phone] documented as of this encounter Procedures [...] PM CDT Narrative Resulting Agency Comment [facility] [address] ??[facility] [phone] Isidro Heredia MD LAB - HEMATOLOGY OR DERABLES [facility] ACCOUNT BILL * C-REACTIVE PROTEIN (10/03/2010 5:56 PM CDT) C-Reactive Protein 3.7 0.0 - 4.9 mg/L [facility] ACCOUNT BILL BLOOD SPECIMEN / Unknown 10/03/2010 5:56 PM CDT 10/03/2010 9:44 PM CDT Narrative Resulting Agency Comment [facility] [address] ??[facility] [phone] Isidro Heredia MD LAB - CHEMISTRY ORD [...] PM CDT Narrative Resulting Agency Comment [facility] [place] [address] [facility] ??[facility] [phone] Isidro Heredia MD LAB - CHEMISTRY ORD [...] PM CDT Narrative Resulting Agency Comment [facility] [address] ??[facility] [phone] Isidro Heredia MD LAB - HEMATOLOGY OR DERABLES [facility] ACCOUNT BILL documented in this encounter Visit Diagnoses Diagnosis Rheumatoid arthritis(714.0) (HCC)- Primary Rheumatoid arthritis Triceps tendonitis Other enthesopathy of elbow region documented in this encounter Care Teams Seals Engraver Relationship Specialty Start Date End Date Nolberto Nicole MD PCP - General 07/21/08 12/30/13 documented as of this encounter
--- OUTSIDE RECORDS SUMMARY | 2024-05-03 09:11 | XMS_ITS | Encounter Summary ---
Author Organization [facility] Address [address] [facility] [place] [address] Care Team Providers Care International Accountant Name Role Phone Nolberto Nicole MD Primary Care Provider Isidro Heredia MD Unavailable [phone] Reason for Visit * Reason Onset Date Comments MEDICATION REFILL 06/09/2011 Encounter Details Date Type Department Care Team (Late st Contact Info) Description 06/09/2011 Refill [facility] Medical [facility] - Rheumatology [address] [place] [address] Isidro Heredia MD [address] [place] [phone] MEDICATION REFILL Social History Tobacco Use [...] take Humira injection until pneumonia is resolved. TURE MASK ETCHER * Telephone Encounter - Miranda Starr - 06/09/2011 1:38 PM CST Called pt to let him know he will need new referral for 06/12/11 visit. He said he is in the hospital for pneumonia and wants refill on Humira. TURE MASK ETCHER documented in this encounter Plan of Treatment Upcoming Encounters Date Type Department Care Team (Late st Contact Info) Description 06/03/2024 1:00 PM APERTURE MASK ETCHER Appointment [facility] - Rheumatology [address] [place] [address] [phone] 06/03/2024 2:00 PM APERTURE MASK ETCHER Office Visit [facility] - Rheumatology [address] [place] [address] Gloria Smith MD [address] [place] [phone] documented as of this encounter Visit Diagnoses Not on filedocumented in this encounter Care Teams International Accountant Relationship Specialty Start Date End Date Nolberto Nicole MD PCP - General 07/21/08 12/30/13 Isidro Heredia MD Rheumatology 02/09/11 documented as of this encounter
--- OUTSIDE RECORDS SUMMARY | 2024-05-03 09:11 | XMS_ITS | Encounter Summary ---
Author Organization [facility] Address [address] [facility] [place] [address] Care Team Providers Care Education Director Name Role Phone Nolberto Nicole MD Primary Care Provider [phone] Reason for Visit * Reason Comments Follow-up RA. am stiffness: 1 hr Pain Scale:9/10 Fatigue Pain Joint knees, hands rt shou lder General nodules rt pointer f jenn Encounter Details Date Type Department Care Team (Late st Contact Info) Description 05/26/2010 2:15 PM BUS AIDE Office Visit [facility] - Rheumatology [address] [place] [address] Isidro Heredia MD [address] [place], [place] [phone] Rheumatoid arthritis (HCC) (Primary Dx) Social History [...] Comments Blood Pressure 124/76 05/26/2010 2:39 PM BUS AIDE Pulse 92 05/26/2010 2:39 PM BUS AIDE Temperature - - Respiratory Rate - - Oxygen Saturation - - Inhaled Oxygen Concentration - - Weight 111.6 kg (246 lb) 05/26/2010 2:39 PM BUS AIDE Height - - Body Mass Index 35.3 02/08/2009 5:43 PM CDT documented in this encounter Progress Notes * Rea Hagan MA - 06/07/2010 3:55 PM CSTQuick Note: Sent lab letter to pt AIDE * Isidro Heredia MD - 05/28/2010 9:25 PM CSTQuick Note: Wbc sl inc mtx ok AIDE * Isidro Heredia MD - 05/26/2010 3:02 [...] on file [place] was [place] in [place] Painful knees qand hands Pain Level: 01/07 [...] Follow up in office in 4 weeks AIDE * Rea Hagan MA - 05/26/2010 2:43 PM CST Chief Complaint Patient presents with ??? Follow-up RA. am stiffness: 1 hr Pain Scale:9/10 ??? Fatigue ??? Pain Joint knees, hands rt shoulder ??? General nodules rt pointer finger BP 124/76 Pulse 92 Wt 246 lb (111.585 kg) AIDE documented in this encounter Plan of Treatment Upcoming Encounters Date Type Department Care Team (Late st Contact Info) Description 06/03/2024 1:00 PM BUS AIDE Appointment [facility] - Rheumatology [address] [place] [address] [phone] 06/03/2024 2:00 PM BUS AIDE Office Visit [facility] - Rheumatology [address] [place] [address] Gloria Smith MD [address] [place] [phone] documented as of this encounter Procedures Procedure Name Priority Date/Time Associated Diagnosis Comments C-REACTIVE PROTEIN Routine 05/26/2010 2: 57 PM BUS AIDE Rheumatoid arthritis (HCC) ERYTHROCYTE SEDIMENTATION RATE Routine 05/26/2010 2:57 PM BUS AIDE Rheumatoid arthritis (HCC) CBC W AUTO DIFFERENTIAL Routine 05/26/2010 2:57 PM BUS AIDE Rheumatoid arthritis (HCC) COMPREHENSIVE METABOLIC PANEL Routine 05/26/2010 2:57 PM BUS AIDE Rheumatoid arthritis (HCC) documented in this encounter Results * (ABNORMAL) SED RATE WESTERGREN AUTO (05/26/2010 2:57 PM BUS AIDE) Erythrocyte Sedimentation Rate Westergren 21(H) 0 - 15 mm/hr [facility] ACCOUNT BILL BLOOD SPECIMEN / Unknown 05/26/2010 2:57 PM BUS AIDE 05/26/2010 8:56 PM BUS AIDE Narrative Resulting Agency Comment [facility] ??[facility] [phone] Isidro Heredia MD LAB - HEMATOLOGY OR DERABLES Performing Organization Address City/[facility]/ZIP Co de Phone Number [facility] ACCOUNT BILL * C-REACTIVE PROTEIN (05/26/2010 2:57 PM BUS AIDE) C-Reactive Protein 3.9 0.0 - 4.9 mg/L [facility] ACCOUNT BILL BLOOD SPECIMEN / Unknown 05/26/2010 2:57 PM BUS AIDE 05/26/2010 8:56 PM BUS AIDE Narrative Resulting Agency Comment [facility] ??[facility] [phone] Isidro Heredia MD LAB - CHEMISTRY ORD ERABLES Performing Organization Address [facility] de Phone Number [facility] ACCOUNT BILL * (ABNORMAL) COMPREHENSIVE METABOLIC PANEL (05/26/2010 2:57 PM BUS AIDE) Glucose 99 65 - 99 mg/dL [facility] [...] BLOOD SPECIMEN / Unknown 05/26/2010 2:57 PM BUS AIDE 05/26/2010 8:56 PM BUS AIDE Narrative Resulting Agency Comment [facility] [address] ??[facility] [phone] Isidro Heredia MD LAB - CHEMISTRY ORD ERABLES [facility] ACCOUNT BILL * (ABNORMAL) CBC W AUTO DIFFERENTIAL (05/26/2010 2:57 PM BUS AIDE) WBC 11.9(H) 4.0 - 10.5 x10E3/uL [facility] [...] BLOOD SPECIMEN / Unknown 05/26/2010 2:57 PM BUS AIDE 05/26/2010 8:56 PM BUS AIDE Narrative Resulting Agency Comment [facility] [address] ??[facility] [phone] Isidro Heredia MD LAB - HEMATOLOGY OR DERABLES [facility] ACCOUNT BILL documented in this encounter Visit Diagnoses Diagnosis Rheumatoid arthritis(714.0) (HCC)- Primary Rheumatoid arthritis documented in this encounter Care Teams Education Director Relationship Specialty Start Date End Date Nolberto Nicole MD PCP - General 07/21/08 12/30/13 documented as of this encounter
--- OUTSIDE RECORDS SUMMARY | 2024-05-03 09:11 | XMS_ITS | Encounter Summary ---
Author Organization [facility] Address [address] [place] [address] Care Team Providers Care Vp Scientific Name Role Phone Nolberto Nicole MD Primary Care Provider [phone] Reason for Visit * Reason Comments Follow-up ra General end of last week shafer, breathing problem due to mole in air condition at job. chest still feels heavy Swelling Joint GENERALIZED BODY ACHES Pain Extremity obdulia ankle bruised Pain Leg obdulia Encounter Details Date Type Department Care Team (Late st Contact Info) Description 11/08/2009 5:00 PM CDT Office Visit [facility] Medical [facility] - Rheumatology [address] [place] [address] Isidro Heredia MD [address] [place], [place] [phone] Rheumatoid Arthritis (HCC) (Primary Dx) Social History [...] st Contact Info) Description 06/03/2024 1:00 PM MODEL BUILDER Appointment [facility] - Rheumatology [address] [place] [address] [phone] 06/03/2024 2:00 PM MODEL BUILDER Office Visit [facility] - Rheumatology [address] [place] [address] [phone] Gloria Smith MD [address] [place] [phone] documented as of this encounter Procedures Procedure [...] PM CDT Narrative Resulting Agency Comment [facility] [place] [address] [facility] ??[facility] [phone] Isidro Heredia MD LAB - HEMATOLOGY OR [...] PM CDT Narrative Resulting Agency Comment [facility] [address] ??[facility] [phone] Isidro Heredia MD LAB - SEROLOGY ORDAvelino ARAUJO [facility] ACCOUNT BILL * C-REACTIVE PROTEIN (11/08/2009 5:18 PM CDT) C-Reactive Protein 3.2 0.0 - 4.9 mg/L [facility] ACCOUNT BILL BLOOD SPECIMEN / Unknown 11/08/2009 5:18 PM CDT 11/08/2009 8:47 PM CDT Narrative Resulting Agency Comment [facility] [address] ??[facility] [phone] Isidro Heredia MD LAB - CHEMISTRY ORD [...] PM CDT Narrative Resulting Agency Comment [facility] [address] ??[facility] [phone] Isidro Heredia MD LAB - CHEMISTRY ORD ERABLES [facility] ACCOUNT BILL documented in this encounter Visit Diagnoses Diagnosis Rheumatoid arthritis(714.0) ([facility])- Primary Rheumatoid arthritis documented in this encounter Care Teams Vp Scientific Relationship Specialty Start Date End Date Nolberto Nicole MD PCP - General 07/21/08 12/30/13 documented as of this encounter
--- OUTSIDE RECORDS SUMMARY | 2024-05-03 09:11 | XMS_ITS | Encounter Summary ---
Author Organization [facility] Address [address] [place] [address] Care Team Providers Care Facilities Locator Name Role Phone Nolberto Nicole MD Primary Care Provider [phone] Isidro Heredia MD Unavailable [phone] Reason for Visit * Reason Onset Date Comments General 08/01/2011 Request call ugo Valiente Encounter Details Date Type Department Care Team (Late st Contact Info) Description 08/01/2011 Telephone [facility] - Rheumatology [address] [place] [address] Isidro Heredia MD [address] [place] [phone] General (Request call from Dr Valiente) [...] st Contact Info) Description 06/03/2024 1:00 PM PHYSICAL METEOROLOGIST Appointment [facility] - Rheumatology [address] [place] [address] [phone] 06/03/2024 2:00 PM PHYSICAL METEOROLOGIST Office Visit [facility] - Rheumatology [address] [place] [address] [phone] Gloria Smith MD [address] [place] [phone] documented as of this encounter Visit Diagnoses Not on filedocumented in this encounter Care Teams Facilities Locator Relationship Specialty Start Date End Date Nolberto Nicole MD PCP - General 07/21/08 12/30/13 Isidro Heredia MD Rheumatology 02/09/11 documented as of this encounter
--- OUTSIDE RECORDS SUMMARY | 2024-05-03 09:11 | XMS_ITS | Encounter Summary ---
Author Organization [facility] Address [address] [facility] [place] [address] Care Team Providers Care Receiving Room Clerk Name Role Phone Nolberto Nicole MD Primary Care Provider [phone] Reason for Visit * Reason Comments Swelling Hand with white spots on palm of obdulia hands Pain legs,knees, rt foot especially the big toe Pain Back low General request handicap car d Encounter Details Date Type Department Care Team (Late st Contact Info) Description 12/13/2009 5:30 PM CDT Office Visit [facility] Medical [facility] - Rheumatology [address] [place] [address] Isidro Heredia MD [address] [place] [address] Rheumatoid Arthritis (HCC) (Primary Dx) Social [...] doing fair On vacation last week in [place] Pain Level: 7/10 Am stiffness 2 hrs [...] Contact Info) Description 06/03/2024 1:00 PM AGRICULTURAL MECHANIC Appointment [facility] - Rheumatology [address] [place] [phone] 06/03/2024 2:00 PM AGRICULTURAL MECHANIC Office Visit [facility] - Rheumatology [address] [place] [address] [phone] Gloria Smith MD [address] [place] [phone] documented as of this encounter Procedures Procedure [...] PM CDT Narrative Resulting Agency Comment [facility] [address] ??[facility] [phone] Isidro Heredia MD LAB - HEMATOLOGY OR DERABLES Performing Organization Address [facility] Co de Phone Number [facility] ACCOUNT BILL * RHEUMATOID FACTOR BLOOD QUANTITATIVE (12/13/2009 7:02 PM CDT) Rheumatoid Factor 8.3 0.0 - 13.9 IU/mL [facility] ACCOUNT BILL BLOOD SPECIMEN / Unknown 12/13/2009 7:02 PM CDT 12/13/2009 10:40 PM CDT Narrative Resulting Agency Comment [facility] [address] ??[facility] [phone] Isidro Heredia MD LAB - CHEMISTRY ORD ERABLES Performing Organization Address City/[facility]/ZIP Co de Phone Number [facility] ACCOUNT BILL [...] PM CDT Narrative Resulting Agency Comment [facility] [address] ??[facility] [phone] Isidro Heredia MD LAB - SEROLOGY MARII ARAUJO Performing Organization Address [facility] Co de Phone Number [facility] ACCOUNT BILL * C-REACTIVE PROTEIN (12/13/2009 7:02 PM CDT) C-Reactive Protein 2.3 0.0 - 4.9 mg/L [facility] ACCOUNT BILL BLOOD SPECIMEN / Unknown 12/13/2009 7:02 PM CDT 12/13/2009 10:40 PM CDT Narrative Resulting Agency Comment [facility] [address] ??[facility] [phone] Isidro Heredia MD LAB - CHEMISTRY CALEB FIELDS Performing Organization Address City/[facility]/ZIP Co de Phone Number [facility] ACCOUNT BILL [...] PM CDT Narrative Resulting Agency Comment [facility] [address] ??[facility] [phone] Isidro Heredia MD LAB - CHEMISTRY ORD [...] PM CDT Narrative Resulting Agency Comment [facility] [address] ??[facility] [phone] Isidro Heredia MD LAB - HEMATOLOGY OR DERABLES [facility] ACCOUNT BILL documented in this encounter Visit Diagnoses Diagnosis Rheumatoid arthritis(714.0) (HCC)- Primary Rheumatoid arthritis documented in this encounter Care Teams Receiving Room Clerk Relationship Specialty Start Date End Date Nolberto Nicole MD PCP - General 07/21/08 12/30/13 documented as of this encounter
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
--- OUTSIDE RECORDS SUMMARY | 2024-05-03 09:11 | XMS_ITS | Encounter Summary ---
Author Organization [facility] Address [address] [facility] [place] [address] Care Team Providers Care Violin Teacher Name Role Phone Nolberto Nicole MD Primary Care Provider [phone] Isidro Heredia MD Unavailable [phone] Reason for Visit * Reason Comments Follow-up ra Shoulder Pain left Swelling Hand obdulia Pain Knee obdulia Encounter Details Date Type Department Care Team (Late st Contact Info) Description 02/13/2011 5:30 PM CDT Office Visit [facility] - Rheumatology [address] [place] [address] Isidro Heredia MD [address] [place] [address] Rheumatoid arthritis (HCC) (Primary Dx); Triceps [...] Test for ra neg again * Isidro Heerdia MD - 02/13/2011 5:57 PM CDT Subjective: [...] st Contact Info) Description 06/03/2024 1:00 PM APPLIANCE SERVICER Appointment [facility] - Rheumatology [address] [place] [address] 06/03/2024 2:00 PM APPLIANCE SERVICER Office Visit [facility] - Rheumatology [address] [place] [address] Gloria Smith MD [address] [place] [phone] documented as of this encounter Procedures Procedure [...] PM CDT Narrative Resulting Agency Comment [facility] [address] ??[facility] [phone] Isidro Heredia MD LAB - SEROLOGY MARII ARAUJO Performing Organization Address City/[facility] Co de Phone Number [facility] ACCOUNT BILL * RHEUMATOID FACTOR BLOOD QUANTITATIVE (02/13/2011 5:59 PM CDT) Pathologist [facility] Rheumatoid Factor 8.0 0.0 - 13.9 IU/mL [facility] ACCOUNT BILL Blood specimen (specimen) BLOOD SPECIMEN / Unknown 02/13/2011 5:59 PM CDT 02/13/2011 9:26 PM CDT Narrative Resulting Agency Comment [facility] [place] [address] [facility] ??[facility] [phone] Isidro Heredia MD LAB - CHEMISTRY CALEB FIELDS [facility] ACCOUNT BILL * (ABNORMAL) SED RATE WESTERGREN AUTO (02/13/2011 5:59 PM CDT) Erythrocyte Sedimentation Rate Westergren 24(H) 0 - 23 mm/hr [facility] ACCOUNT BILL Blood specimen (specimen) BLOOD SPECIMEN / Unknown 02/13/2011 5:59 PM CDT 02/13/2011 9:26 PM CDT Narrative Resulting Agency Comment [facility] ??[facility] [phone] Isidro Heredia MD LAB - HEMATOLOGY OR DERABLES [facility] ACCOUNT BILL * C-REACTIVE PROTEIN (02/13/2011 5:59 PM CDT) C-Reactive Protein 1.2 0.0 - 4.9 mg/L [facility] ACCOUNT BILL Blood specimen (specimen) BLOOD SPECIMEN / Unknown 02/13/2011 5:59 PM CDT 02/13/2011 9:26 PM CDT Narrative Resulting Agency Comment [facility] [address] ??[facility] [phone] Isidro Heredia MD LAB - CHEMISTRY ORD ERABLES Performing Organization Address City/[facility]/ZIP Co de Phone Number [facility] ACCOUNT [...] CDT Narrative Resulting Agency Comment [facility] [address] ??[facility] [phone] Isidro Heredia MD LAB - CHEMISTRY ORD [...] CDT Narrative Resulting Agency Comment [facility] [address] ??[facility] [phone] Isidro Heredia MD LAB - HEMATOLOGY OR DERABLES [facility] ACCOUNT BILL documented in this encounter Visit Diagnoses Diagnosis Rheumatoid arthritis(714.0) (HCC)- Primary Rheumatoid arthritis Triceps tendonitis Other enthesopathy of elbow region Subacromial bursitis Other specified disorders of rotator cuff syndrome of shoulder and allied disorders documented in this encounter Care Teams Violin Teacher Relationship Specialty Start Date End Date Nolberto Nicole MD PCP - General 07/21/08 12/30/13 Isidro Heredia MD Rheumatology 02/09/11 documented as of this encounter
--- OUTSIDE RECORDS SUMMARY | 2024-05-03 09:11 | XMS_ITS | Encounter Summary ---
Author Organization [facility] Address [address] [address] Care Team Providers Care Pododermatologist Name Role Phone Nolberto Nicole MD Primary Care Provider Isidro Heredia MD Unavailable [phone] Reason for Visit * Reason Comments Follow-up RA. wants to discuss Humira and Actemera Toenail fungus. rt big toe Chest Pain * Consult, Test & Treat (Routine) - Closed Specialty Diagnoses / Procedures Referred By Contac t Referred To Contact Diagnoses Rheumatoid arthritis(714.0) ([facility]) Procedures SD OFFICE VISIT DURING HOURS Nolberto Nicole MD [address] [place] [address] Isidro Heredia MD [address] [place] [address] Referral ID Status Reason Start Date Expiration Date Visits Re quested Visits Authorized [id number] Closed 01/06/2011 07/04/2011 1 5 Encounter Details Date Type Department Care Team (Late st Contact Info) Description 05/15/2011 5:15 PM TUNNEL DRIER OPERATOR Office Visit [facility] - Rheumatology [address] [place] [address] Isidro Heredia MD [address] [facility] [place] [address] Rheumatoid arthritis (HCC) (Primary Dx); [...] 111.1 kg (245 lb) 05/15/2011 5:19 PM TUNNEL DRIER OPERATOR Height 177.8 cm (5' 10 ) 05/15/2011 5:19 PM TUNNEL DRIER OPERATOR Body Mass Index 35.15 05/15/2011 5:19 PM TUNNEL DRIER OPERATOR documented in this encounter Progress Notes * Rea Hagan MA - 05/23/2011 12:12 PM CSTQuick Note: Sent lab letter to pt EL DRIER OPERATOR * Isidro Heredia MD - 05/19/2011 7:38 PM CSTQuick Note: All labs ok Chol 191 EL DRIER OPERATOR * Isidro Heredia MD - 05/15/2011 5:47 [...] PO) Take by mouth once daily. ??? Gysqvhrnprw-Hxvsrcrnc-Lwr C-Mn (GLUCOSAMINE CHONDR 1500 COMPLX PO) Take [...] 4 weeks Check on status of actemra EL DRIER OPERATOR documented in this encounter Plan of Treatment Upcoming Encounters Date Type Department Care Team (Late st Contact Info) Description 06/03/2024 1:00 PM TUNNEL DRIER OPERATOR Appointment [facility] - Rheumatology [address] [place] [address] [phone] 06/03/2024 2:00 PM TUNNEL DRIER OPERATOR Office Visit [facility] - Rheumatology [address] [place] [address] Gloria Smith MD [address] [place] [phone] documented as of this encounter Procedures Procedure Name Priority Date/Time Associated Diagnosis Comments LIPID PROFILE W LDL/HDL RATIO Routine 05/15/2011 6:06 PM TUNNEL DRIER OPERATOR Hyperlipidemia C-REACTIVE PROTEIN Routine 05/15/2011 6: 06 PM TUNNEL DRIER OPERATOR Rheumatoid arthritis (HCC) ERYTHROCYTE SEDIMENTATION RATE Routine 05/15/2011 6:06 PM TUNNEL DRIER OPERATOR Rheumatoid arthritis (HCC) CBC W AUTO DIFFERENTIAL Routine 05/15/2011 6:06 PM TUNNEL DRIER OPERATOR Rheumatoid arthritis (HCC) COMPREHENSIVE METABOLIC PANEL Routine 05/15/2011 6:06 PM TUNNEL DRIER OPERATOR Rheumatoid arthritis (HCC) documented in this encounter Results * C-REACTIVE PROTEIN (05/15/2011 6:06 PM TUNNEL DRIER OPERATOR) C-Reactive Protein 2.1 0.0 - 4.9 mg/L [facility] ACCOUNT BILL Blood specimen (specimen) BLOOD SPECIMEN / Unknown 05/15/2011 6:06 PM TUNNEL DRIER OPERATOR 05/15/2011 9:47 PM TUNNEL DRIER OPERATOR Narrative Resulting Agency Comment [facility] [address] ??[facility] [phone] Isidro Heredia MD LAB - CHEMISTRY ORD ERABLES [facility] ACCOUNT BILL * (ABNORMAL) LIPID PROFILE W LDL/HDL (PO REF LAB) (05/15/2011 6:06 PM TUNNEL DRIER OPERATOR) Cholesterol 191 100 - 199 mg/dL [...] BLOOD SPECIMEN / Unknown 05/15/2011 6:06 PM TUNNEL DRIER OPERATOR 05/15/2011 9:47 PM TUNNEL DRIER OPERATOR Narrative Resulting Agency Comment [facility] [address] ??[facility] [phone] Isidro Heredia MD LAB - CHEMISTRY ORD ERABLES Performing Organization Address City/[facility]/ZIP Co de Phone Number [facility] ACCOUNT BILL * SED RATE WESTERGREN AUTO (05/15/2011 6:06 PM TUNNEL DRIER OPERATOR) Erythrocyte Sedimentation Rate Westergren 15 0 - 15 mm/hr [facility] ACCOUNT BILL Comment:Please note refere nce interval change Blood specimen (specimen) BLOOD SPECIMEN / Unknown 05/15/2011 6:06 PM TUNNEL DRIER OPERATOR 05/15/2011 9:47 PM TUNNEL DRIER OPERATOR Narrative Resulting Agency Comment [facility] [address] [facility] ??[facility] [phone] Isidro Heredia MD LAB - HEMATOLOGY OR DERABLES Performing Organization Address City/[facility]/ZIP Co de Phone Number [facility] ACCOUNT BILL * (ABNORMAL) COMPREHENSIVE METABOLIC PANEL (05/15/2011 6:06 PM TUNNEL DRIER OPERATOR) Glucose 120(H) 65 - 99 mg/dL [facility] [...] BLOOD SPECIMEN / Unknown 05/15/2011 6:06 PM TUNNEL DRIER OPERATOR 05/15/2011 9:47 PM TUNNEL DRIER OPERATOR Narrative Resulting Agency Comment [facility] [address] ??[facility] [phone] Isidro Heredia MD LAB - CHEMISTRY ORD ERABLES [facility] ACCOUNT BILL * (ABNORMAL) CBC W AUTO DIFFERENTIAL (05/15/2011 6:06 PM TUNNEL DRIER OPERATOR) WBC 9.2 4.0 - 10.5 x10E3/uL [facility] [...] BLOOD SPECIMEN / Unknown 05/15/2011 6:06 PM TUNNEL DRIER OPERATOR 05/15/2011 9:47 PM TUNNEL DRIER OPERATOR Narrative Resulting Agency Comment [facility] [address] ??[facility] [phone] Isidro Heredia MD LAB - HEMATOLOGY OR DERABLES [facility] ACCOUNT BILL documented in this encounter Visit Diagnoses Diagnosis Rheumatoid arthritis(714.0) ([facility])- Primary Rheumatoid arthritis Triceps tendonitis Other enthesopathy of elbow region Hyperlipidemia Other and unspecified hyperlipidemia documented in this encounter Care Teams Pododermatologist Relationship Specialty Start Date End Date Nolberto Nicole MD PCP - General 07/21/08 12/30/13 Isidro Heredia MD Rheumatology 02/09/11 documented as of this encounter
--- OUTSIDE RECORDS SUMMARY | 2024-05-03 09:11 | XMS_ITS | Encounter Summary ---
Author Organization [facility] Address [address] [place] [address] [place] [address] Care Team Providers Care Apron Man Name Role Phone Nolberto Nicole MD Primary Care Provider [phone] Reason for Visit * Reason Comments Follow-up RA Encounter Details Date Type Department Care Team (Late st Contact Info) Description 01/16/2011 5:30 PM CDT Office Visit [facility] - Rheumatology [address] [place] [address] [phone] Isidro Heredia MD [address] [place] [address] [phone] Rheumatoid arthritis (HCC) (Primary Dx); Triceps tendonitis [...] Drug Use Not on file went to [facility] for a week Pain Level: 11/06 Am [...] st Contact Info) Description 06/03/2024 1:00 PM LUMP ROLLER Appointment [facility] - Rheumatology [address] [place] [address] 06/03/2024 2:00 PM LUMP ROLLER Office Visit [facility] - Rheumatology [address] [place] [address] Gloria Smith MD [address] [place] [phone] documented as of this encounter Procedures [...] PM CDT Narrative Resulting Agency Comment [facility] [place] [address] [facility] ??[facility] [phone] Isidro Heredia MD LAB - HEMATOLOGY OR [...] CDT Narrative Resulting Agency Comment [facility] [address] ??[facility] [phone] Isidro Heredia MD LAB - CHEMISTRY ORD ERABLES [facility] ACCOUNT BILL * (ABNORMAL) C-REACTIVE PROTEIN (01/16/2011 6:00 PM CDT) C-Reactive Protein 5.8(H) 0.0 - 4.9 mg/L [facility] ACCOUNT BILL BLOOD SPECIMEN / Unknown 01/16/2011 6:00 PM CDT 01/16/2011 10:24 PM CDT Narrative Resulting Agency Comment [facility] [address] ??[facility] [phone] Isidro Heredia MD LAB - CHEMISTRY ORD ERABLES [facility] ACCOUNT BILL * (ABNORMAL) CBC W AUTO DIFFERENTIAL (01/16/2011 6:00 PM CDT) Pathologist [facility] WBC 9.6 4.0 - 10.5 x10E3/uL [facility] [...] CDT Narrative Resulting Agency Comment [facility] [address] ??[facility] [phone] Isidro Heredia MD LAB - HEMATOLOGY OR DERABLES [facility] ACCOUNT BILL documented in this encounter Visit Diagnoses Diagnosis Rheumatoid arthritis(714.0) (HCC)- Primary Rheumatoid arthritis Triceps tendonitis Other enthesopathy of elbow region documented in this encounter Care Teams Apron Man Relationship Specialty Start Date End Date Nolberto Nicole MD PCP - General 07/21/08 12/30/13 documented as of this encounter
--- OUTSIDE RECORDS SUMMARY | 2024-05-03 09:11 | XMS_ITS | Encounter Summary ---
Author Organization [facility] Address [address] [place] [address] [place] [address] Care Team Providers Care Self Sealing Fuel Tank Builder Name Role Phone Nolberto Nicole MD Primary Care Provider [phone] Reason for Visit * Reason Comments Swelling Hand some swelling General Pain Scale: 7/10 Shoulder Pain rt Encounter Details Date Type Department Care Team (Late st Contact Info) Description 08/29/2010 5:00 PM CDT Office Visit [facility] - Rheumatology [address] [place] [address] [phone] Isidro Heredia MD [address] [place] [address] Rheumatoid arthritis (HCC) (Primary Dx) Social [...] st Contact Info) Description 06/03/2024 1:00 PM DRIVER/GUIDE Appointment [facility] - Rheumatology [address] [place] [address] 06/03/2024 2:00 PM DRIVER/GUIDE Office Visit [facility] - Rheumatology [address] [place] [address] Gloria Smith MD [address] [place] [phone] documented as of this encounter Procedures [...] 9:07 PM CDT Narrative Resulting Agency Comment [facility] ??[facility] [phone] Isidro Heredia MD LAB - HEMATOLOGY OR DERABLES [facility] ACCOUNT BILL * C-REACTIVE PROTEIN (08/29/2010 5:44 PM CDT) C-Reactive Protein 1.9 0.0 - 4.9 mg/L [facility] ACCOUNT BILL BLOOD SPECIMEN / Unknown 08/29/2010 5:44 PM CDT 08/29/2010 9:07 PM CDT Narrative Resulting Agency Comment [facility] ??[facility] [phone] Isidro Heredia MD LAB - CHEMISTRY ORD [...] PM CDT Narrative Resulting Agency Comment [facility] [address] ??[facility] [phone] Isidro Heredia MD LAB - CHEMISTRY ORD [...] PM CDT Narrative Resulting Agency Comment [facility] [address] ??[facility] [phone] Isidro Heredia MD LAB - HEMATOLOGY OR DERABLES [facility] ACCOUNT BILL documented in this encounter Visit Diagnoses Diagnosis Rheumatoid arthritis(714.0) (HCC)- Primary Rheumatoid arthritis documented in this encounter Care Teams Self Sealing Fuel Tank Builder Relationship Specialty Start Date End Date Nolberto Nicole MD PCP - General 07/21/08 12/30/13 documented as of this encounter
--- OUTSIDE RECORDS SUMMARY | 2024-05-03 09:11 | XMS_ITS | Encounter Summary ---
Author Organization [facility] Address [address] [place] [address] Care Team Providers Care Music Education Director Name Role Phone Nolberto Nicole MD Primary Care Provider [phone] Reason for Visit * Reason Comments Shoulder Pain rt Pain Hand rt General went to [facility] for E coli. this is resolved, treated with antibx Encounter Details Date Type Department Care Team (Late st Contact Info) Description 04/18/2010 3:15 PM POST EXCHANGE MANAGER Office Visit [facility] - Rheumatology [address] [place] [address] Isidro Heredia MD [address] [place] [address] Rheumatoid arthritis (HCC) (Primary Dx) Social [...] Comments Blood Pressure 124/84 04/18/2010 4:17 PM POST EXCHANGE MANAGER Pulse 80 04/18/2010 4:17 PM POST EXCHANGE MANAGER Temperature - - Respiratory Rate - - Oxygen Saturation - - Inhaled Oxygen Concentration - - Weight 111.6 kg (246 lb) 04/18/2010 4:17 PM POST EXCHANGE MANAGER Height - - Body Mass Index 35.3 02/08/2009 5:43 PM CDT documented in this encounter Progress Notes * Rea Hagan MA - 04/25/2010 6:50 PM CSTQuick Note: Sent lab letter to pt EXCHANGE MANAGER * Isidro Heredia MD - 04/23/2010 8:43 PM CSTQuick Note: mtx ok EXCHANGE MANAGER * Isidro Heredia MD - 04/18/2010 4:52 PM CST Subjective: Chalino Deng 49 y.o. male Chief Complaint Patient presents with ??? Shoulder Pain rt ??? Pain Hand rt ??? General went to [facility] for E coli. this is [...] Follow up in office in 4 mo EXCHANGE MANAGER * Rea Hagan MA - 04/18/2010 4:21 PM CST Chief Complaint Patient presents with ??? Shoulder Pain rt ??? Pain Hand rt ??? General went to [facility] for E coli. this is resolved, treated with antibx BP 124/84 Pulse 80 Wt 246 lb (111.585 kg) EXCHANGE MANAGER documented in this encounter Plan of Treatment Upcoming Encounters Date Type Department Care Team (Late st Contact Info) Description 06/03/2024 1:00 PM POST EXCHANGE MANAGER Appointment [facility] - Rheumatology [address] [place] [address] 06/03/2024 2:00 PM POST EXCHANGE MANAGER Office Visit [facility] - Rheumatology [address] [place] [address] Gloria Smith MD [address] [place] [phone] documented as of this encounter Procedures Procedure Name Priority Date/Time Associated Diagnosis Comments C-REACTIVE PROTEIN Routine 04/18/2010 4: 46 PM POST EXCHANGE MANAGER Rheumatoid arthritis (HCC) ERYTHROCYTE SEDIMENTATION RATE Routine 04/18/2010 4:46 PM POST EXCHANGE MANAGER Rheumatoid arthritis (HCC) CBC W AUTO DIFFERENTIAL Routine 04/18/2010 4:46 PM POST EXCHANGE MANAGER Rheumatoid arthritis (HCC) COMPREHENSIVE METABOLIC PANEL Routine 04/18/2010 4:46 PM POST EXCHANGE MANAGER Rheumatoid arthritis (HCC) documented in this encounter Results * (ABNORMAL) SED RATE WESTERGREN AUTO (04/18/2010 4:46 PM POST EXCHANGE MANAGER) Erythrocyte Sedimentation Rate Westergren 19(H) 0 - 15 mm/hr [facility] ACCOUNT BILL BLOOD SPECIMEN / Unknown 04/18/2010 4:46 PM POST EXCHANGE MANAGER 04/18/2010 10:29 PM POST EXCHANGE MANAGER Narrative Resulting Agency Comment [facility] [place] [address] ??[facility] [phone] Isidro Heredia MD LAB - HEMATOLOGY OR DERABLES [facility] ACCOUNT BILL * C-REACTIVE PROTEIN (04/18/2010 4:46 PM POST EXCHANGE MANAGER) C-Reactive Protein 4.5 0.0 - 4.9 mg/L [facility] ACCOUNT BILL BLOOD SPECIMEN / Unknown 04/18/2010 4:46 PM POST EXCHANGE MANAGER 04/18/2010 10:29 PM POST EXCHANGE MANAGER Narrative Resulting Agency Comment [facility] [place] [address] ??[place] [phone] Isidro Heredia MD LAB - CHEMISTRY ORD ERABLES Performing Organization Address City/[facility] Co de Phone Number [facility] ACCOUNT BILL * (ABNORMAL) COMPREHENSIVE METABOLIC PANEL (04/18/2010 4:46 PM POST EXCHANGE MANAGER) Glucose 105(H) 65 - 99 mg/dL [facility] [...] BLOOD SPECIMEN / Unknown 04/18/2010 4:46 PM POST EXCHANGE MANAGER 04/18/2010 10:29 PM POST EXCHANGE MANAGER Narrative Resulting Agency Comment [facility] [place] [address] [facility] ??[facility] [phone] Isidro Heredia MD LAB - CHEMISTRY ORD ERABLES [facility] ACCOUNT BILL * CBC W AUTO DIFFERENTIAL (04/18/2010 4:46 PM POST EXCHANGE MANAGER) WBC 9.9 4.0 - 10.5 x10E3/uL [facility] [...] BLOOD SPECIMEN / Unknown 04/18/2010 4:46 PM POST EXCHANGE MANAGER 04/18/2010 10:29 PM POST EXCHANGE MANAGER Narrative Resulting Agency Comment [facility] [place] [address] [facility] ??[facility] [phone] Isidro Heredia MD LAB - HEMATOLOGY OR DERABLES [facility] ACCOUNT BILL documented in this encounter Visit Diagnoses Diagnosis Rheumatoid arthritis(714.0) ([facility])- Primary Rheumatoid arthritis documented in this encounter Care Teams Music Education Director Relationship Specialty Start Date End Date Nolberto Nicole MD PCP - General 07/21/08 12/30/13 documented as of this encounter
--- OUTSIDE RECORDS SUMMARY | 2024-05-03 09:11 | XMS_ITS | Encounter Summary ---
Author Organization [facility] Address [address] [place] [address] [place] [address] Care Team Providers Care Synthetic Department Supervisor Name Role Phone Nolberto Nicole MD Primary Care Provider [phone] Reason for Visit * Reason Comments Follow-up RA Fatigue Encounter Details Date Type Department Care Team (Late st Contact Info) Description 11/14/2010 5:15 PM CDT Office Visit [facility] - Rheumatology [address] [place] [address] [phone] Isidro Heredia MD [address] [place] [address] Rheumatoid arthritis (HCC) (Primary Dx); Triceps [...] Contact Info) Description 06/03/2024 1:00 PM CO CHAIRMAN Appointment [facility] - Rheumatology [address] [place] [address] 06/03/2024 2:00 PM CO CHAIRMAN Office Visit [facility] - Rheumatology [address] [place] [address] [place] [phone] Gloria Smith MD [address] [place], [place] [address] [place] [phone] documented as of this encounter Procedures Procedure [...] CDT Narrative Resulting Agency Comment [facility] [place] [facility] [id number] [facility] ??[facility] [phone] Isidro Heredia MD LAB - HEMATOLOGY OR DERABLES [facility] ACCOUNT BILL * (ABNORMAL) C-REACTIVE PROTEIN (11/14/2010 5:52 PM CDT) C-Reactive Protein 7.9(H) 0.0 - 4.9 mg/L [facility] ACCOUNT BILL BLOOD SPECIMEN / Unknown 11/14/2010 5:52 PM CDT 11/14/2010 8:52 PM CDT Narrative Resulting Agency Comment [facility] [place] Garcia[address] [facility] ??[facility] [phone] Isidro Heredia MD LAB - CHEMISTRY ORD [...] PM CDT Narrative Resulting Agency Comment [facility] [place] [address] [facility] ??[facility] [phone] Isidro Heredia MD LAB - CHEMISTRY ORD [...] CDT Narrative Resulting Agency Comment [facility] [address] ??[facility] [phone] Isidro Heredia MD LAB - HEMATOLOGY OR DERABLES [facility] ACCOUNT BILL documented in this encounter Visit Diagnoses Diagnosis Rheumatoid arthritis(714.0) (HCC)- Primary Rheumatoid arthritis Triceps tendonitis Other enthesopathy of elbow region documented in this encounter Care Teams Synthetic Department Supervisor Relationship Specialty Start Date End Date Nolberto Nicole MD PCP - General 07/21/08 12/30/13 documented as of this encounter
--- OUTSIDE RECORDS SUMMARY | 2024-05-03 09:11 | XMS_ITS | Encounter Summary ---
Author Organization [facility] Address [address] [place] [address] [place] [address] Care Team Providers Care Nuisance Wildlife Control Operator Name Role Phone Nolberto Nicole MD Primary Care Provider [phone] Reason for Visit * Reason Comments Shoulder Pain rt Encounter Details Date Type Department Care Team (Late st Contact Info) Description 01/10/2010 4:15 PM CDT Office Visit [facility] - Rheumatology [address] [place] [address] Isidro Heredia MD [address] [place] [address] Rheumatoid Arthritis (HCC) (Primary Dx); Osteopenia Social [...] Contact Info) Description 06/03/2024 1:00 PM DIE KEEPER Appointment [facility] - Rheumatology [address] [place] [address] [phone] 06/03/2024 2:00 PM DIE KEEPER Office Visit [facility] - Rheumatology [address] [place] [address] Gloria Smith MD [address] [place] [phone] documented as of this encounter Procedures Procedure [...] PM CDT Narrative Resulting Agency Comment [facility] [address] ??[facility] [phone] Isidro Heredia MD LAB - HEMATOLOGY OR DERABLES [facility] ACCOUNT BILL * C-REACTIVE PROTEIN (01/10/2010 5:14 PM CDT) C-Reactive Protein 3.4 0.0 - 4.9 mg/L [facility] ACCOUNT BILL BLOOD SPECIMEN / Unknown 01/10/2010 5:14 PM CDT 01/10/2010 8:33 PM CDT Narrative Resulting Agency Comment [facility] [address] ??[facility] [phone] Isidro Heredia MD LAB - CHEMISTRY ORD [...] PM CDT Narrative Resulting Agency Comment [facility] [address] ??[facility] [phone] Isidro Heredia MD LAB - CHEMISTRY ORD [...] PM CDT Narrative Resulting Agency Comment [facility] [address] ??[facility] [phone] Isidro Heredia MD LAB - HEMATOLOGY OR DERABLES [facility] ACCOUNT BILL documented in this encounter Visit Diagnoses Diagnosis Rheumatoid [facility](714.0) ([facility] Primary Rheumatoid arthritis Osteopenia Disorder of bone and cartilage, unspecified documented in this encounter Care Teams Nuisance Wildlife Control Operator Relationship Specialty Start Date End Date Nolberto Nicole MD PCP - General 07/21/08 12/30/13 documented as of this encounter
--- OUTSIDE RECORDS SUMMARY | 2024-05-03 09:11 | XMS_ITS | Encounter Summary ---
Author Organization [facility] Address [address] [place] [address] Care Team Providers Care Vest Busheler Name Role Phone Nolberto Nicole MD Primary Care Provider [phone] Reason for Visit * Reason Comments Shoulder Pain left Pain Scale: 9/1 0 Pain Knee Swelling fingers. and sore General Pain Scale: 7/10 Encounter Details Date Type Department Care Team (Late st Contact Info) Description 07/25/2010 4:45 PM CDT Office Visit [facility] - Rheumatology [address] [place] [address] Isidro Heredia MD [address] [place] [address] Rheumatoid arthritis (HCC) (Primary Dx); Osteopenia; [...] st Contact Info) Description 06/03/2024 1:00 PM BOARD MILL SUPERVISOR Appointment [facility] - Rheumatology [address] [place] [address] [phone] 06/03/2024 2:00 PM BOARD MILL SUPERVISOR Office Visit [facility] - Rheumatology [address] [place] [address] [phone] Gloria Smith MD [address] [place] [address] [phone] documented as of this encounter Procedures Procedure [...] 9:35 PM CDT Narrative Resulting Agency Comment [facility] ??[facility] [phone] Isidro Heredia MD LAB - HEMATOLOGY OR DERABLES Performing Organization Address City/[facility]/ZIP Co de Phone Number [facility] ACCOUNT BILL * C-REACTIVE PROTEIN (07/25/2010 5:28 PM CDT) C-Reactive Protein 2.4 0.0 - 4.9 mg/L [facility] ACCOUNT BILL BLOOD SPECIMEN / Unknown 07/25/2010 5:28 PM CDT 07/25/2010 9:35 PM CDT Narrative Resulting Agency Comment [facility] [place] [id number] [facility] ??[facility] [phone] Isidro Heredia MD LAB - CHEMISTRY ORD ERABLES Performing Organization Address City/[facility]/ZIP Co de Phone Number [facility] [...] PM CDT Narrative Resulting Agency Comment [facility] [place] [address] [facility] ??[facility] [phone] Isidro Heredia MD LAB - CHEMISTRY ORD [...] CDT Narrative Resulting Agency Comment [facility] [address] ??[facility] [phone] Isidro Heredia MD LAB - HEMATOLOGY OR DERABLES [facility] ACCOUNT BILL documented in this encounter Visit Diagnoses Diagnosis Rheumatoid arthritis(714.0) (HCC)- Primary Rheumatoid arthritis Osteopenia Disorder of bone and cartilage, unspecified Subacromial bursitis Other specified disorders of rotator cuff syndrome of shoulder and allied disorders documented in this encounter Care Teams Vest Busheler Relationship Specialty Start Date End Date Nolberto Nicole MD PCP - General 07/21/08 12/30/13 documented as of this encounter
--- OUTSIDE RECORDS SUMMARY | 2024-05-03 09:11 | XMS_ITS | Encounter Summary ---
Author Organization [facility] Address [address] [place] [address] Care Team Providers Care Plate Painter Apprentice Name Role Phone Nolberto Nicole MD Primary Care Provider [phone] Encounter Details Date Type Department Care Team (Late Contact Info) Description 11/08/2009 Orders Only [facility] - Rheumatology [address] [place] [address] Isidro Heredia MD [address] [place] [address] Social History Tobacco Use Types Packs/Day [...] Contact Info) Description 06/03/2024 1:00 PM DIRECTOR CASE Appointment [facility] - Rheumatology [address] [place] [address] 06/03/2024 2:00 PM DIRECTOR CASE Office Visit [facility] - Rheumatology [address] [place] [address] Gloria Smith MD [address] [place] [phone] documented as of this encounter Procedures [...] NOT AVAILABLE Resulting Agency Comment [facility] [address] ??[facility] [phone] Isidro Heredia MD LAB - HEMATOLOGY OR DERABLES [facility] ACCOUNT BILL documented in this encounter Visit Diagnoses Not on filedocumented in this encounter Care Teams Plate Painter Apprentice Relationship Specialty Start Date End Date Nolberto Nicole MD PCP - General 07/21/08 12/30/13 documented as of this encounter
--- OUTSIDE RECORDS SUMMARY | 2024-05-03 09:11 | XMS_ITS | Encounter Summary ---
Author Organization [facility] Address [address] [facility] [place] [address] Care Team Providers Care Multiple Spindle Router Operator Name Role Phone Nolberto Nicole MD Primary Care Provider [phone] Reason for Visit * Reason Comments Shoulder Pain left. rt hurt little General pt has stopped the h umira injection due to fungal infection x 4 months. Pain Joint Pain Side rt. very tender to t ouch Encounter Details Date Type Department Care Team (Late st Contact Info) Description 06/27/2010 4:00 PM CRIPPLE CHASER Office Visit [facility] - Rheumatology [address] [place] [address] Isidro Heredia MD [address] [place] [address] [phone] Rheumatoid arthritis (HCC) (Primary Dx); Fungus infection [...] Comments Blood Pressure 140/86 06/27/2010 4:21 PM CRIPPLE CHASER Pulse 96 06/27/2010 4:21 PM CRIPPLE CHASER Temperature - - Respiratory Rate - - Oxygen Saturation - - Inhaled Oxygen Concentration - - Weight 112 kg (247 lb) 06/27/2010 4:21 PM CRIPPLE CHASER Height - - Body Mass Index 35.44 02/08/2009 5:43 PM CDT documented in this encounter Progress Notes * Yamileth Rodríguez MA - 07/02/2010 3:42 PM CSTQuick Note: Letter mailed to patient regarding lab results. PLE CHASER * Isidro Heredia MD - 07/02/2010 7:09 AM CSTQuick Note: mtx ok Wbc Sl inc due to recent infection PLE CHASER * Isidro Heredia MD - 06/27/2010 5:00 [...] Follow up in office in 4 weeks PLE CHASER * Rea Hagan MA - 06/27/2010 4:21 PM CST Chief Complaint Patient presents with ??? Shoulder Pain left. rt hurt little ??? General pt has stopped the humira injection due to fungal infection x 4 months. ??? Pain Joint ??? Pain Side rt. very tender to touch BP 140/86 Pulse 96 Wt 247 lb (112.038 kg) PLE CHASER documented in this encounter Plan of Treatment Upcoming Encounters Date Type Department Care Team (Late st Contact Info) Description 06/03/2024 1:00 PM CRIPPLE CHASER Appointment [facility] - Rheumatology [address] [place] [address] 06/03/2024 2:00 PM CRIPPLE CHASER Office Visit [facility] - Rheumatology [address] [place] [address] Gloria Smith MD [address] [place] [phone] documented as of this encounter Procedures Procedure Name Priority Date/Time Associated Diagnosis Comments ERYTHROCYTE SEDIMENTATION RATE Routine 06/27/2010 4:46 PM CRIPPLE CHASER Rheumatoid arthritis (HCC) CBC W AUTO DIFFERENTIAL Routine 06/27/2010 4:46 PM CRIPPLE CHASER Rheumatoid arthritis (HCC) C-REACTIVE PROTEIN Routine 06/27/2010 4: 45 PM CRIPPLE CHASER Rheumatoid arthritis (HCC) COMPREHENSIVE METABOLIC PANEL Routine 06/27/2010 4:45 PM CRIPPLE CHASER Rheumatoid arthritis (HCC) documented in this encounter Results * (ABNORMAL) SED RATE WESTERGREN AUTO (06/27/2010 4:46 PM CRIPPLE CHASER) Erythrocyte Sedimentation Rate Westergren 22(H) 0 - 15 mm/hr [facility] ACCOUNT BILL BLOOD SPECIMEN / Unknown 06/27/2010 4:46 PM CRIPPLE CHASER 06/27/2010 10:21 PM CRIPPLE CHASER Narrative Resulting Agency Comment [facility] [address] ??[facility] [phone] Isidro Heredia MD LAB - HEMATOLOGY OR DERABLES [facility] ACCOUNT BILL * (ABNORMAL) CBC W AUTO DIFFERENTIAL (06/27/2010 4:46 PM CRIPPLE CHASER) WBC 13.3(H) 4.0 - 10.5 x10E3/uL [facility] [...] BLOOD SPECIMEN / Unknown 06/27/2010 4:46 PM CRIPPLE CHASER 06/27/2010 10:21 PM CRIPPLE CHASER Narrative Resulting Agency Comment [facility] [address] ??[facility] [phone] Isidro Heredia MD LAB - HEMATOLOGY OR DERABLES Performing Organization Address [facility] de Phone Number [facility] ACCOUNT BILL * (ABNORMAL) C-REACTIVE PROTEIN (06/27/2010 4:45 PM CRIPPLE CHASER) C-Reactive Protein 5.8(H) 0.0 - 4.9 mg/L [facility] ACCOUNT BILL BLOOD SPECIMEN / Unknown 06/27/2010 4:45 PM CRIPPLE CHASER 06/27/2010 9:16 PM CRIPPLE CHASER Narrative Resulting Agency Comment [facility] [address] ??[facility] [phone] Isidro Heredia MD LAB - CHEMISTRY ORD ERABLES Performing Organization Address City/[facility]/ZIP Co de Phone Number [facility] ACCOUNT BILL * (ABNORMAL) COMPREHENSIVE METABOLIC PANEL (06/27/2010 4:45 PM CRIPPLE CHASER) Glucose 85 65 - 99 mg/dL [facility] [...] BLOOD SPECIMEN / Unknown 06/27/2010 4:45 PM CRIPPLE CHASER 06/27/2010 9:16 PM CRIPPLE CHASER Narrative Resulting Agency Comment [facility] [address] ??[facility] [phone] Isidro Heredia MD LAB - CHEMISTRY ORD ERABLES [facility] ACCOUNT BILL documented in this encounter Visit Diagnoses Diagnosis Rheumatoid arthritis(714.0) (HCC)- Primary Rheumatoid arthritis Fungus infection Other and unspecified mycoses documented in this encounter Care Teams Multiple Spindle Router Operator Relationship Specialty Start Date End Date Nolberto Nicole MD PCP - General 07/21/08 12/30/13 documented as of this encounter
--- OUTSIDE RECORDS SUMMARY | 2024-05-03 09:11 | XMS_ITS | Encounter Summary ---
Author Organization [facility] Address [address] [place] [address] Care Team Providers Care Bottom Sprayer Name Role Phone Nolberto Nicole MD Primary Care Provider [phone] Isidro Heredia MD Unavailable Reason for Visit * Reason Comments Follow-up RAa Arthritis joint achey all over Swelling Hand obdulia * Consult, Test & Treat (Routine) - Closed Specialty Diagnoses / Procedures Referred By Lawrence shah Referred To Contact Diagnoses Rheumatoid arthritis(714.0) (HCC) Procedures DE OFFICE VISIT DURING HOURS Nolberto Nicole MD [address] [place] [address] Isidro Heredia MD [address] [place] [address] Referral ID Status Reason Start Date Expiration Date Visits Re quested Visits Authorized [id number] Closed 01/06/2011 07/04/2011 1 5 Encounter Details Date Type Department Care Team (Late st Contact Info) Description 04/17/2011 5:00 PM BAND DIRECTOR Office Visit [facility] - Rheumatology [address] [place] [address] Isidro Heredia MD [address] [place] [address] Rheumatoid arthritis (HCC) (Primary Dx); [...] Comments Blood Pressure 130/80 04/17/2011 5:22 PM BAND DIRECTOR Pulse 76 04/17/2011 5:23 PM BAND DIRECTOR Temperature - - Respiratory Rate - - Oxygen Saturation - - Inhaled Oxygen Concentration - - Weight 108.4 kg (239 lb) 04/17/2011 5:23 PM BAND DIRECTOR Height - - Body Mass Index 34.29 02/08/2009 5:43 PM CDT documented in this encounter Progress Notes * Corry Santizo MA - 04/27/2011 3:41 PM CSTQuick Note: Letter mailed to patient regarding lab results. DIRECTOR * Isidro Heredia MD - 04/24/2011 3:48 PM CSTQuick Note: mtx ok DIRECTOR * Isidro Heredia MD - 04/17/2011 5:21 [...] PO) Take by mouth once daily. ??? Ausicjlwszm-Cudfmewbn-Srd C-Mn (GLUCOSAMINE CHONDR 1500 COMPLX PO) Take [...] up in office in 4 weeks DIRECTOR * Rea Hagan MA - 04/17/2011 5:21 PM CST Chief Complaint Patient presents with ??? Follow-up RAa ??? Arthritis joint achey all over ??? Swelling Hand obdulia BP 130/80 Pulse 76 Wt 239 lb (108.41 kg) DIRECTOR documented in this encounter Plan of Treatment Upcoming Encounters Date Type Department Care Team (Late st Contact Info) Description 06/03/2024 1:00 PM BAND DIRECTOR Appointment [facility] - Rheumatology [address] [place] [address] 06/03/2024 2:00 PM BAND DIRECTOR Office Visit [facility] - Rheumatology [address] [place] [address] Gloria Smith MD [address] [place] [phone] documented as of this encounter Procedures Procedure Name Priority Date/Time Associated Diagnosis Comments C-REACTIVE PROTEIN Routine 04/17/2011 5: 13 PM BAND DIRECTOR Rheumatoid arthritis (HCC) ERYTHROCYTE SEDIMENTATION RATE Routine 04/17/2011 5:13 PM BAND DIRECTOR Rheumatoid arthritis (HCC) CBC W AUTO DIFFERENTIAL Routine 04/17/2011 5:13 PM BAND DIRECTOR Rheumatoid arthritis (HCC) COMPREHENSIVE METABOLIC PANEL Routine 04/17/2011 5:13 PM BAND DIRECTOR Rheumatoid arthritis (HCC) documented in this encounter Results * SED RATE WESTERGREN AUTO (04/17/2011 5:13 PM BAND DIRECTOR) Erythrocyte Sedimentation Rate Westergren 23 0 - 23 mm/hr [facility] ACCOUNT BILL Blood specimen (specimen) BLOOD SPECIMEN / Unknown 04/17/2011 5:13 PM BAND DIRECTOR 04/17/2011 10:15 PM BAND DIRECTOR Narrative Resulting Agency Comment [facility] [place] [address] ??[facility] [phone] Isidro Heredia MD LAB - HEMATOLOGY OR DERABLES [facility] ACCOUNT BILL * (ABNORMAL) C-REACTIVE PROTEIN (04/17/2011 5:13 PM BAND DIRECTOR) C-Reactive Protein 16.0(H) 0.0 - 4.9 mg/L [facility] ACCOUNT BILL Blood specimen (specimen) BLOOD SPECIMEN / Unknown 04/17/2011 5:13 PM BAND DIRECTOR 04/17/2011 10:15 PM BAND DIRECTOR Narrative Resulting Agency Comment [facility] [place] [address] ??[facility] [phone] Isidro Heredia MD LAB - CHEMISTRY ORD ERABLES [facility] ACCOUNT BILL * (ABNORMAL) COMPREHENSIVE METABOLIC PANEL (04/17/2011 5:13 PM BAND DIRECTOR) Glucose 106(H) 65 - 99 mg/dL [facility] [...] BLOOD SPECIMEN / Unknown 04/17/2011 5:13 PM BAND DIRECTOR 04/17/2011 10:15 PM BAND DIRECTOR Narrative Resulting Agency Comment [facility] [address] ??[facility] [phone] Isidro Heredia MD LAB - CHEMISTRY ORD ERABLES [facility] ACCOUNT BILL * (ABNORMAL) CBC W AUTO DIFFERENTIAL (04/17/2011 5:13 PM BAND DIRECTOR) WBC 10.0 4.0 - 10.5 x10E3/uL [facility] [...] BLOOD SPECIMEN / Unknown 04/17/2011 5:13 PM BAND DIRECTOR 04/17/2011 10:15 PM BAND DIRECTOR Narrative Resulting Agency Comment [facility] [place] [id number] [facility] ??[facility] [phone] Isidro Heredia MD LAB - HEMATOLOGY OR DERABLES [facility] ACCOUNT BILL documented in this encounter Visit Diagnoses Diagnosis Rheumatoid arthritis(714.0) (HCC)- Primary Rheumatoid arthritis Triceps tendonitis Other enthesopathy of elbow region documented in this encounter Care Teams Bottom Sprayer Relationship Specialty Start Date End Date Nolberto Nicole MD PCP - General 07/21/08 12/30/13 Isidro Heredia MD Rheumatology 02/09/11 documented as of this encounter
--- OUTSIDE RECORDS SUMMARY | 2024-05-03 09:12 | XMS_ITS | Encounter Summary ---
Author Organization [facility] Address [address] [facility] [place] [address] Care Team Providers Care Derivatives Trader Name Role Phone Nolberto Nicole MD Primary Care Provider Encounter Details Date Type Department Care Team (Late Contact Info) Description 08/02/[address] [facility] - Rheumatology [address] [place] [address] [phone] Isidro Heredia MD [address] [place] [address] [phone] Social History Tobacco Use Types Packs/Day Years [...] Contact Info) Description 06/03/2024 1:00 PM SCHOOL FUNDRAISING DIRECTOR Appointment [facility] - Rheumatology [address] [place] [address] 06/03/2024 2:00 PM SCHOOL FUNDRAISING DIRECTOR Office Visit [facility] - Rheumatology [address] [place] [address] [phone] Gloria Smith MD [address] [place] [phone] documented as of this encounter Procedures [...] CDT Narrative Resulting Agency Comment [facility] [address] ??[facility] [phone] Isidro Heredia MD LAB - CHEMISTRY ORD [...] CDT Narrative Resulting Agency Comment [facility] [address] ??[facility] [phone] Isidro Heredia MD LAB - CHEMISTRY ORD [...] NOT AVAILABLE Resulting Agency Comment [facility] [address] ??[facility] [phone] Isidro Heredia MD LAB - HEMATOLOGY OR DERABLES [facility] ACCOUNT BILL documented in this encounter Visit Diagnoses Not on filedocumented in this encounter Care Teams Derivatives Trader Relationship Specialty Start Date End Date Nolberto Nicole MD PCP - General 07/21/08 12/30/13 documented as of this encounter
--- OUTSIDE RECORDS SUMMARY | 2024-05-03 09:12 | XMS_ITS | Encounter Summary ---
Author Organization [facility] Address [address] [facility] [place] [address] Care Team Providers Care Digital Printer Name Role Phone Nolberto Nicole MD Primary Care Provider [phone] Encounter Details Date Type Department Care Team (Late Contact Info) Description 02/08/2009 Orders Only [facility] - Rheumatology [address] [place] [address] [phone] Isidro Heredia MD [address] [place] [address] [phone] Social History Tobacco Use Types Packs/Day Years [...] (Late Contact Info) Description 06/03/2024 1:00 PM CORNER FORMER Appointment [facility] - Rheumatology [address] [place] [address] 06/03/2024 2:00 PM CORNER FORMER Office Visit [facility] - Rheumatology [address] [place] [address] Gloria Smith MD [address] [place] [address] [place] [phone] documented as of this encounter Procedures Procedure [...] PM CDT Narrative Resulting Agency Comment [facility] [address] ??[facility] [phone] Isidro Heredia MD LAB - CHEMISTRY ORD [...] PM CDT Narrative Resulting Agency Comment [facility] [address] ??[facility] [phone] Isidro Heredia MD LAB - CHEMISTRY ORD [...] RESULT NOT AVAILABLE Resulting Agency Comment [facility] [address] ??[facility] [phone] Isidro Heredia MD LAB - HEMATOLOGY OR DERABLES [facility] ACCOUNT BILL documented in this encounter Visit Diagnoses Not on filedocumented in this encounter Care Teams Digital Printer Relationship Specialty Start Date End Date Nolberto Nicole MD PCP - General 07/21/08 12/30/13 documented as of this encounter
--- OUTSIDE RECORDS SUMMARY | 2024-05-03 09:12 | XMS_ITS | Encounter Summary ---
Author Organization [facility] Address [address] [place] [address] Care Team Providers Care Tattoo And Body Artist Name Role Phone Nolberto Nicole MD Primary Care Provider [phone] Encounter Details Date Type Department Care Team (Late Contact Info) Description 07/05/2009 Orders Only [facility] - Rheumatology [address] [place] [address] Isidro Heredia MD [address] [place] [phone] Social History Tobacco Use Types Packs/Day [...] st Contact Info) Description 06/03/2024 1:[address] CONTRACTOR Appointment [facility] - Rheumatology [address] [place] [address] 06/03/2024 2:[address] CONTRACTOR Office Visit [facility] - Rheumatology [address] [place] [address] Gloria Smith MD [address] [place] [phone] documented as of this encounter Procedures Procedure Name Priority Date/Time Associated Diagnosis Comments ERYTHROCYTE SEDIMENTATION RATE 07/05/2009 6:[address] CONTRACTOR documented in this encounter Results * SED RATE WESTERGREN AUTO (07/05/2009 6:[address] CONTRACTOR) Erythrocyte Sedimentation Rate Westergren 15 0 - 15 mm/hr [facility] ACCOUNT BILL 07/05/2009 6:[address] CONTRACTOR 07/05/2009 10:[address] CONTRACTOR Narrative Resulting Agency Comment [facility] [place] [id number] [facility] ??[facility] [phone] Isidro Heredia MD LAB - HEMATOLOGY OR DERABLES [facility] ACCOUNT BILL documented in this encounter Visit Diagnoses Not on filedocumented in this encounter Care Teams Tattoo And Body Artist Relationship Specialty Start Date End Date Nolberto Nicole MD PCP - General 07/21/08 12/30/13 documented as of this encounter
--- OUTSIDE RECORDS SUMMARY | 2024-05-03 09:12 | XMS_ITS | Encounter Summary ---
Author Organization [facility] Address [address] [place] [address] [place] [address] Care Team Providers Care Social Organization Professor Name Role Phone Nolberto Nicole MD Primary Care Provider [phone] Reason for Visit * Reason Comments Rheumatoid Arthritis followup Encounter Details Date Type Department Care Team (Late st Contact Info) Description 11/16/2008 5:15 PM CDT Office Visit [facility] - Rheumatology [address] [place] [phone] Isidro Heredia MD [address] [place] [address] Rheumatoid Arthritis (HCC) (Primary Dx); GERD (Gastroesophageal [...] for 10 weeks spondylosis C5C6 Xrays [place] Current outpatient prescriptions prior to encounter Medication [...] st Contact Info) Description 06/03/2024 1:00 PM HUMANITIES INSTRUCTOR Appointment [facility] - Rheumatology [address] [place] [address] [phone] 06/03/2024 2:00 PM HUMANITIES INSTRUCTOR Office Visit [facility] - Rheumatology [address] [place] [address] [phone] Gloria Smith MD [address] [place] [address] [phone] Scheduled Orders Name Type Priority Associated Diagnoses [...] CDT Narrative Resulting Agency Comment [facility] [address] ??[facility] [phone] Isidro Heredia MD LAB - CHEMISTRY ORD [...] RESULT NOT AVAILABLE Resulting Agency Comment [facility] [address] ??[facility] [phone] Isidro Heredia MD LAB - HEMATOLOGY OR DERABLES [facility] ACCOUNT BILL documented in this encounter Visit Diagnoses Diagnosis Rheumatoid arthritis(714.0) ([facility])- Primary Rheumatoid arthritis GERD (gastroesophageal reflux disease) Esophageal reflux Osteopenia Disorder of bone and cartilage, unspecified documented in this encounter Care Teams Social Organization Professor Relationship Specialty Start Date End Date Nolberto Nicole MD PCP - General 07/21/08 12/30/13 documented as of this encounter
--- OUTSIDE RECORDS SUMMARY | 2024-05-03 09:12 | XMS_ITS | Encounter Summary ---
Author Organization [facility] Address [address] [place] [address] [place] [address] Care Team Providers Care Manager Sql Name Role Phone Nolberto Nicole MD Primary Care Provider Reason for Visit * Reason Comments Rheumatoid Arthritis Encounter Details Date Type Department Care Team ([facility] Contact Info) Description 09/28/2008 Office Visit [facility] - Rheumatology [address] [place] [address] [phone] Isidro Heredia MD [address] [place], [place] [phone] Rheumatoid Arthritis (HCC) (Primary Dx) Social History [...] Upcoming Encounters Date Type Department Care Team ([facility] Contact Info) Description 06/03/2024 1:00 PM LIFTER Appointment [facility] - Rheumatology [address] [place] [phone] 06/03/2024 2:00 PM LIFTER Office Visit [facility] - Rheumatology [address] [place] [address] [phone] Gloria Smith MD [address] [place] [phone] documented as of this encounter Visit Diagnoses Diagnosis Rheumatoid arthritis(714.0) ([facility])- Primary Rheumatoid arthritis documented in this encounter Care Teams Manager Sql Relationship Specialty Start Date End Date Nolberto Nicole MD PCP - General 07/21/08 12/30/13 documented as of this encounter
--- OUTSIDE RECORDS SUMMARY | 2024-05-03 09:12 | XMS_ITS | Encounter Summary ---
Author Organization [facility] Address [address] [place] [address] [place] [address] Care Team Providers Care Global Category Manager Name Role Phone Nolberto Nicole MD Primary Care Provider [phone] Reason for Visit * Reason Comments Follow-up ra Encounter Details Date Type Department Care Team (Late st Contact Info) Description 01/11/2009 4:15 PM CDT Office Visit [facility] Medical [facility] - Rheumatology [address] [place] [address] [phone] Isidro Heredia MD [address] [place] [address] [phone] Rheumatoid Arthritis (HCC) (Primary Dx) Social History [...] st Contact Info) Description 06/03/2024 1:00 PM AOC PLANS INTELLIGENCE OFFICER Appointment [facility] - Rheumatology [address] [place] [address] 06/03/2024 2:00 PM AOC PLANS INTELLIGENCE OFFICER Office Visit [facility] - Rheumatology [address] [place] [address] Gloria Smith MD [address] [place] [phone] Scheduled Orders Name Type Priority Associated Diagnoses [...] PM CDT Narrative Resulting Agency Comment [facility] [address] ??[facility] [phone] Isidro Heredia MD LAB - HEMATOLOGY OR DERABLES [facility] ACCOUNT BILL * C-REACTIVE PROTEIN (CRP) (01/11/2009 5:23 PM CDT) C-Reactive Protein 1.6 0.0 - 4.9 mg/L [facility] ACCOUNT BILL BLOOD SPECIMEN / Unknown 01/11/2009 5:23 PM CDT 01/11/2009 9:32 PM CDT Narrative Resulting Agency Comment [facility] [address] ??[facility] [phone] Isidro Heredia MD LAB - CHEMISTRY ORD [...] RESULT NOT AVAILABLE Resulting Agency Comment [facility] [address] ??[facility] [phone] Isidro Heredia MD LAB - HEMATOLOGY OR DERABLES [facility] ACCOUNT BILL documented in this encounter Visit Diagnoses Diagnosis Rheumatoid arthritis(714.0) (HCC)- Primary Rheumatoid arthritis documented in this encounter Care Teams Global Category Manager Relationship Specialty Start Date End Date Nolberto Nicole MD PCP - General 07/21/08 12/30/13 documented as of this encounter
--- OUTSIDE RECORDS SUMMARY | 2024-05-03 09:12 | XMS_ITS | Encounter Summary ---
Author Organization [facility] Address [address] [place] [address] Care Team Providers Care Machinist Apprentice Wood Name Role Phone Unavailable Primary Care Provider Unavailabl e Encounter Details Date Type Department Care Team (Late st Contact Info) Description 06/22/2008 Orders Only [facility] - Family Medicine [address] [place] [address] Isidro Heredia MD [address] [place] [phone] Social History Tobacco Use Types Packs/Day Years Used Date Smoking Tobacco: Never Assessed Sex and Gender Information Value Date Recorded Sex Assigned at Not on file Gender Identity Not on file Sexual Orientation Not on file documented as of this encounter Plan of Treatment Upcoming Encounters Date Type Department Care Team (Late st Contact Info) Description 06/03/2024 1:00 PM NURSING SERVICES MANAGER Appointment [facility] - Rheumatology [address] [place] [address] 06/03/2024 2:00 PM NURSING SERVICES MANAGER Office Visit [facility] - Rheumatology [address] [place] [address] Gloria Smith MD [address] [place] [phone] documented as of this encounter Procedures Procedure Name Priority Date/Time Associated Diagnosis Comments C-REACTIVE PROTEIN 06/22/2008 5: 42 PM NURSING SERVICES MANAGER ERYTHROCYTE SEDIMENTATION RATE 06/22/2008 5:42 PM NURSING SERVICES MANAGER CBC W AUTO DIFFERENTIAL 06/22/2008 5:42 PM NURSING SERVICES MANAGER COMPREHENSIVE METABOLIC PANEL 06/22/2008 5:42 PM NURSING SERVICES MANAGER documented in this encounter Results * (ABNORMAL) C-REACTIVE PROTEIN (06/22/2008 5:42 PM NURSING SERVICES MANAGER) C-Reactive Protein 5.5(H) 0.0 - 4.9 mg/L [facility] ACCOUNT BILL 06/22/2008 5:42 PM NURSING SERVICES MANAGER 06/22/2008 9:42 PM NURSING SERVICES MANAGER Narrative Resulting Agency Comment [facility] [place] [address] ??[facility] [phone] Isidro Heredia MD LAB - CHEMISTRY ORD ERABLES Performing Organization Address City/[facility] Co de Phone Number [facility] ACCOUNT BILL * SED RATE WESTERGREN AUTO (06/22/2008 5:42 PM NURSING SERVICES MANAGER) Erythrocyte Sedimentation Rate Westergren 10 0 - 15 mm/hr [facility] ACCOUNT BILL 06/22/2008 5:42 PM NURSING SERVICES MANAGER 06/22/2008 9:42 PM NURSING SERVICES MANAGER Narrative Resulting Agency Comment [facility] [place] [address] ??[facility] access hospital [phone] Isidro Heredia MD LAB - HEMATOLOGY OR DERABLES Performing Organization Address City/[facility] Co de Phone Number [facility] ACCOUNT BILL * COMPREHENSIVE METABOLIC PANEL (06/22/2008 5:42 PM NURSING SERVICES MANAGER) Glucose 86 65 - 99 mg/dL [facility] [...] IU/L [facility] ACCOUNT BILL 06/22/2008 5:42 PM NURSING SERVICES MANAGER 06/22/2008 9:42 PM NURSING SERVICES MANAGER Narrative Resulting Agency Comment [facility] [address] ??[facility] hospital [phone] Isidro Heredia MD LAB - CHEMISTRY ORD ERABLES [facility] ACCOUNT BILL * (ABNORMAL) CBC W AUTO DIFFERENTIAL (06/22/2008 5:42 PM NURSING SERVICES MANAGER) WBC 11.3(H) 4.0 - 10.5 x10E3/uL [facility] [...] AVAIL. [facility] ACCOUNT BILL 06/22/2008 5:42 PM NURSING SERVICES MANAGER 06/22/2008 9:42 PM NURSING SERVICES MANAGER Narrative [facility] ACCOUNT BILL - 06/23/2008 8:39 AM NURSING SERVICES MANAGER Additional Result Information HEMATOLOGY COMMENTS: ??BLOOD,URINE ([facility]): RESULT NOT AVAILABLE Resulting Agency Comment [facility] [address] ??[facility] access hospital [phone] Isidro Heredia MD LAB - HEMATOLOGY OR DERABLES [facility] ACCOUNT BILL documented in this encounter Visit Diagnoses Not on filedocumented in this encounter
--- OUTSIDE RECORDS SUMMARY | 2024-05-03 09:12 | XMS_ITS | Encounter Summary ---
Author Organization [facility] Address [address] [place] [address] Care Team Providers Care Masticator Name Role Phone Nolberto Nicole MD Primary Care Provider [phone] Encounter Details Date Type Department Care Team (Late Contact Info) Description 08/24/2008 Orders Only [facility] - Rheumatology [address] [place] [address] Isidro Heredia MD [address] [place] [phone] Social History Tobacco Use Types Packs/Day [...] (Late Contact Info) Description 06/03/2024 1:00 PM MASTER WELDER Appointment [facility] - Rheumatology [address] [place] [address] 06/03/2024 2:00 PM MASTER WELDER Office Visit [facility] - Rheumatology [address] [place] [address] Gloria Smith MD [address] [place] [phone] documented as of this encounter Procedures [...] CDT Narrative Resulting Agency Comment [facility] [address] ??[facility] [phone] Isidro Heredia MD LAB - CHEMISTRY ORD ERABLES Performing Organization Address City/[facility] Co de Phone Number [facility] INSURANCE BILL * RHEUMATOID FACTOR BLOOD QUANTITATIVE (08/24/2008 6:37 PM CDT) Pathologist [facility] Rheumatoid Factor 5.0 0.0 - 13.9 IU/mL [facility] INSURANCE BILL 08/24/2008 6:37 PM CDT 08/24/2008 9:56 PM CDT Narrative Resulting Agency Comment [facility] [place] [address] [facility] ??Critical access hospital [phone] Isidro Heredia MD LAB - CHEMISTRY ORD ERABLES [facility] INSURANCE BILL documented in this encounter Visit Diagnoses Not on filedocumented in this encounter Care Teams Masticator Relationship Specialty Start Date End Date Nolberto Nicole MD PCP - General 07/21/08 12/30/13 documented as of this encounter
--- OUTSIDE RECORDS SUMMARY | 2024-05-03 09:12 | XMS_ITS | Encounter Summary ---
Author Organization [facility] Address [address] [place] [address] Care Team Providers Care Primary Montessori Teacher Name Role Phone Nolberto Nicole MD Primary Care Provider [phone] Encounter Details Date Type Department Care Team (Late Contact Info) Description 10/12/2008 Orders Only [facility] - Rheumatology [address] [place] [address] Isidro Heredia MD [address] [place] [address] Social History Tobacco Use Types Packs/Day [...] (Late Contact Info) Description 06/03/2024 1:00 PM LAMPS TESTER AND INSPECTOR Appointment [facility] - Rheumatology [address] [place] [address] 06/03/2024 2:00 PM LAMPS TESTER AND INSPECTOR Office Visit [facility] - Rheumatology [address] [place] [address] Gloria Smith MD [address] [place] [phone] documented as of this encounter Procedures Procedure Name Priority Date/Time Associated Diagnosis Comments RHEUMATOID FACTOR BLOOD QUANTITATIVE 10/12/2008 6:16 PM CDT documented in this encounter Results * RHEUMATOID FACTOR BLOOD QUANTITATIVE (10/12/2008 6:16 PM CDT) Rheumatoid Factor 4.7 0.0 - 13.9 IU/mL [facility] ACCOUNT BILL 10/12/2008 6:16 PM CDT 10/12/2008 9:22 PM CDT Narrative Resulting Agency Comment [facility] [address] ??[facility] [phone] Isidro Heredia MD LAB - CHEMISTRY ORD ERABLES [facility] ACCOUNT BILL documented in this encounter Visit Diagnoses Not on filedocumented in this encounter Care Teams Primary Montessori Teacher Relationship Specialty Start Date End Date Nolberto Nicole MD PCP - General 07/21/08 12/30/13 documented as of this encounter
--- OUTSIDE RECORDS SUMMARY | 2024-05-03 09:12 | XMS_ITS | Encounter Summary ---
Author Organization [facility] Address [address] [facility] [place] [address] Care Team Providers Care Restaurant Kitchen Manager Name Role Phone Nolberto Nicole MD Primary Care Provider [phone] Encounter Details Date Type Department Care Team (Late st Contact Info) Description 08/30/[address] [facility] - Rheumatology [address] [place] [address] [phone] Isidro Heredia MD [address] [place] [address] [phone] Social History Tobacco Use Types Packs/Day Years [...] st Contact Info) Description 06/03/2024 1:00 PM BRAZER ELECTRONIC Appointment [facility] - Rheumatology [address] [place] [address] 06/03/2024 2:00 PM BRAZER ELECTRONIC Office Visit [facility] - Rheumatology [address] [place] [address] Gloria Smith MD [address] [place] [phone] documented as of this encounter Procedures [...] Narrative Resulting Agency Comment [facility] [place] [address] [facility] ??[facility] [phone] Isidro Heredia MD LAB - CHEMISTRY ORD [...] PM CDT Narrative Resulting Agency Comment [facility] [address] ??[facility] [phone] Isidro Heredia MD LAB - CHEMISTRY ORD [...] RESULT NOT AVAILABLE Resulting Agency Comment [facility] [address] ??[facility] [phone] Isidro Heredia MD LAB - HEMATOLOGY OR DERABLES [facility] ACCOUNT BILL documented in this encounter Visit Diagnoses Not on filedocumented in this encounter Care Teams Restaurant Kitchen Manager Relationship Specialty Start Date End Date Nolberto Nicole MD PCP - General 07/21/08 12/30/13 documented as of this encounter
--- OUTSIDE RECORDS SUMMARY | 2024-05-03 09:12 | XMS_ITS | Encounter Summary ---
Author Organization [facility] Address [address] [place] [address] [place] [address] Care Team Providers Care Engineering Writer Name Role Phone Nolberto Nicole MD Primary Care Provider Reason for Visit * Reason Comments Follow-up ra Cramps obdulia legs at Encounter Details Date Type Department Care Team (Late st Contact Info) Description 05/05/2009 2:15 PM SOFTWARE ENGINEER DEVELOPER Office Visit [facility] - Rheumatology [address] [place] [address] [phone] Isidro Heredia MD [address] [place] [phone] Rheumatoid Arthritis (HCC) (Primary Dx); Osteopenia [...] Comments Blood Pressure 116/90 05/05/2009 2:25 PM SOFTWARE ENGINEER DEVELOPER Pulse 88 05/05/2009 2:25 PM SOFTWARE ENGINEER DEVELOPER Temperature - - Respiratory Rate - - Oxygen Saturation - - Inhaled Oxygen Concentration - - Weight 109.3 kg (241 lb) 05/05/2009 2:25 PM SOFTWARE ENGINEER DEVELOPER Height - - Body Mass Index 34.58 02/08/2009 5:43 PM CDT documented in this encounter Progress Notes * Rea Hagan MA - 05/10/2009 11:23 AM CSTSamantha Note: Sent lab letter of 05/05/09 to pt WARE ENGINEER DEVELOPER * Isidro Heredia MD - 05/08/2009 9:37 PM CSTQurolando Note: Mtx ok WARE ENGINEER DEVELOPER * Isidro Heredia MD - 05/05/2009 2:50 [...] Follow up in office in 4 weeks WARE ENGINEER DEVELOPER * Rea Hagan MA - 05/05/2009 2:25 PM CST Chief Complaint Patient presents with ??? Follow-up ra ??? Cramps obdulia legs at hs BP 116/90 Pulse 88 Wt 109.317 kg (241 lb) WARE ENGINEER DEVELOPER documented in this encounter Plan of Treatment Upcoming Encounters Date Type Department Care Team (Late st Contact Info) Description 06/03/2024 1:00 PM SOFTWARE ENGINEER DEVELOPER Appointment [facility] - Rheumatology [address] [place] [address] [phone] 06/03/2024 2:00 PM SOFTWARE ENGINEER DEVELOPER Office Visit [facility] - Rheumatology [address] [place] [address] Gloria Smith MD [address] [place] [phone] documented as of this encounter Procedures Procedure Name Priority Date/Time Associated Diagnosis Comments C-REACTIVE PROTEIN Routine 05/05/2009 2: 34 PM SOFTWARE ENGINEER DEVELOPER Rheumatoid Arthritis (HCC) ERYTHROCYTE SEDIMENTATION RATE Routine 05/05/2009 2:34 PM SOFTWARE ENGINEER DEVELOPER Rheumatoid Arthritis (HCC) CBC W AUTO DIFFERENTIAL Routine 05/05/2009 2:34 PM SOFTWARE ENGINEER DEVELOPER Rheumatoid Arthritis (HCC) COMPREHENSIVE METABOLIC PANEL Routine 05/05/2009 2:34 PM SOFTWARE ENGINEER DEVELOPER Rheumatoid Arthritis (HCC) documented in this encounter Results * SED RATE WESTERGREN AUTO (05/05/2009 2:34 PM SOFTWARE ENGINEER DEVELOPER) Erythrocyte Sedimentation Rate Westergren 9 0 - 15 mm/hr [facility] ACCOUNT BILL BLOOD SPECIMEN / Unknown 05/05/2009 2:34 PM SOFTWARE ENGINEER DEVELOPER 05/05/2009 9:39 PM SOFTWARE ENGINEER DEVELOPER Narrative Resulting Agency Comment [facility] [address] ??[facility] [phone] Isidro Heredia MD LAB - HEMATOLOGY OR DERABLES [facility] ACCOUNT BILL * COMPREHENSIVE METABOLIC PANEL (05/05/2009 2:34 PM SOFTWARE ENGINEER DEVELOPER) Glucose 86 65 - 99 mg/dL [facility] [...] BLOOD SPECIMEN / Unknown 05/05/2009 2:34 PM SOFTWARE ENGINEER DEVELOPER 05/05/2009 9:39 PM SOFTWARE ENGINEER DEVELOPER Narrative Resulting Agency Comment [facility] [address] ??[facility] [phone] Isidro Heredia MD LAB - CHEMISTRY ORD ERABLES [facility] ACCOUNT BILL * C-REACTIVE PROTEIN (05/05/2009 2:34 PM SOFTWARE ENGINEER DEVELOPER) C-Reactive Protein 3.8 0.0 - 4.9 mg/L [facility] ACCOUNT BILL BLOOD SPECIMEN / Unknown 05/05/2009 2:34 PM SOFTWARE ENGINEER DEVELOPER 05/05/2009 9:39 PM SOFTWARE ENGINEER DEVELOPER Narrative Resulting Agency Comment [facility] [address] ??[facility] [phone] Isidro Heredia MD LAB - CHEMISTRY ORD ERABLES [facility] ACCOUNT BILL * (ABNORMAL) CBC W AUTO DIFFERENTIAL (05/05/2009 2:34 PM SOFTWARE ENGINEER DEVELOPER) Pathologist [facility] WBC 8.2 4.0 - 10.5 x10E3/uL [facility] [...] BLOOD SPECIMEN / Unknown 05/05/2009 2:34 PM SOFTWARE ENGINEER DEVELOPER 05/05/2009 9:39 PM SOFTWARE ENGINEER DEVELOPER Narrative [facility] ACCOUNT BILL - 05/06/2009 7:23 AM SOFTWARE ENGINEER DEVELOPER Additional Result Information IMMATURE CELLS ([facility]): RESULT NOT AVAILABLE IMMATURE GRANULOCYTES ([facility]): RESULT NOT AVAILABLE IMMATURE GRANS (ABS) ([facility]): RESULT NOT AVAILABLE NRBC ([facility]): RESULT NOT AVAILABLE HEMATOLOGY COMMENTS: ??BLOOD,URINE ([facility]): RESULT NOT AVAILABLE Resulting Agency Comment [facility] [address] ??[facility] [phone] Isidro Heredia MD LAB - HEMATOLOGY OR DERABLES [facility] ACCOUNT BILL documented in this encounter Visit Diagnoses Diagnosis Rheumatoid arthritis(714.0) ([facility])- Primary Rheumatoid arthritis Osteopenia Disorder of bone and cartilage, unspecified documented in this encounter Care Teams Engineering Writer Relationship Specialty Start Date End Date Nolberto Nicole MD PCP - General 07/21/08 12/30/13 documented as of this encounter
--- OUTSIDE RECORDS SUMMARY | 2024-05-03 09:12 | XMS_ITS | Encounter Summary ---
Author Organization [facility] Address [address] [facility] [address] [place] [address] Care Team Providers Care Advertising Statistical Clerk Name Role Phone Nolberto Nicole MD Primary Care Provider Encounter Details Date Type Department Care Team (Late Contact Info) Description 01/11/2009 Orders Only [facility] - Rheumatology [address] [place] [address] [phone] Isidro Heredia MD [address] [place] [address] [phone] Social History Tobacco Use Types Packs/Day Years [...] Contact Info) Description 06/03/2024 1:00 PM EDITOR BOOK Appointment [facility] - Rheumatology [address] [place] [address] [phone] 06/03/2024 2:00 PM EDITOR BOOK Office Visit [facility] - Rheumatology [address] [place] [phone] Gloria Smith MD [address] [place] [phone] documented as of this encounter Procedures [...] PM CDT Narrative Resulting Agency Comment [facility] [place] [phone] [facility] ??[facility] [phone] Isidro Heredia MD LAB - CHEMISTRY ORD ERABLES [facility] ACCOUNT BILL documented in this encounter Visit Diagnoses Not on filedocumented in this encounter Care Teams Advertising Statistical Clerk Relationship Specialty Start Date End Date Nolberto Nicole MD PCP - General 07/21/08 12/30/13 documented as of this encounter
--- OUTSIDE RECORDS SUMMARY | 2024-05-03 09:12 | XMS_ITS | Encounter Summary ---
Author Organization [facility] Address [address] [place] [address] [place] [address] Care Team Providers Care Body Work Auto Trimmer Name Role Phone Nolberto Nicole MD Primary Care Provider [phone] Reason for Visit * Reason Onset Date Comments Follow-up 01/12/2009 Encounter Details Date Type Department Care Team (Late st Contact Info) Description 01/12/2009 Telephone [facility] Medical [facility] - Rheumatology [address] [place] [address] [phone] Isidro Heredia MD [address] [place], [place] [phone] Follow-up Social History Tobacco Use Types Packs/Day [...] - 01/12/2009 11:34 AM CDT Yamileth with [employer] called in and on 01/11/09 the patient had 4 lab test that was cancel. Heended up having them done anyway does the office want the results? Was he supposed to have them done? Please call and let her know. documented in this encounter Plan of Treatment Upcoming Encounters Date Type Department Care Team (Late st Contact Info) Description 06/03/2024 1:00 PM INSIDE SALES SUPERVISOR Appointment [facility] - Rheumatology [address] [place] [address] [phone] 06/03/2024 2:00 PM INSIDE SALES SUPERVISOR Office Visit [facility] - Rheumatology [address] [place] [address] Gloria Smith MD [address] [place] [address] [phone] documented as of this encounter Visit Diagnoses Not on filedocumented in this encounter Care Teams Body Work Auto Trimmer Relationship Specialty Start Date End Date Nolberto Nicole MD PCP - General 07/21/08 12/30/13 documented as of this encounter
--- OUTSIDE RECORDS SUMMARY | 2024-05-03 09:12 | XMS_ITS | Encounter Summary ---
Author Organization [facility] Address [address] [facility] [place] [address] Care Team Providers Care Ultrasound Sonographer Name Role Phone Nolberto Nicole MD Primary Care Provider [phone] Reason for Visit * Reason Onset Date Comments Letter 09/14/2008 Encounter Details Date Type Department Care Team (Late st Contact Info) Description 09/14/2008 Telephone [facility] - Rheumatology [address] [place], [place] [phone] Isidro Heredia MD [address] [place] [address] Letter Social History Tobacco Use Types Packs/Day [...] Spondylitis. Faxed medical records release form to [phone] for medical records release request * Telephone Encounter - Evert Pisanomy - 09/14/2008 2:00 PM CDT Patient called in a needs a letter for [facility] documented in this encounter Plan of Treatment Upcoming Encounters Date Type Department Care Team (Late st Contact Info) Description 06/03/2024 1:00 PM CHEMICAL ENGINEERING INTERN Appointment [facility] - Rheumatology [address] [place] [address] [phone] 06/03/2024 2:00 PM CHEMICAL ENGINEERING INTERN Office Visit [facility] - Rheumatology [address] [place] [address] Gloria Smith MD [address] [place] [address] [phone] documented as of this encounter Visit Diagnoses Not on filedocumented in this encounter Care Teams Ultrasound Sonographer Relationship Specialty Start Date End Date Nolberto Nicole MD PCP - General 07/21/08 12/30/13 documented as of this encounter
--- OUTSIDE RECORDS SUMMARY | 2024-05-03 09:12 | XMS_ITS | Encounter Summary ---
Author Organization [facility] Address [address] [place] [address] [place] [address] Care Team Providers Care Licensed Vocational Nurse Name Role Phone Nolberto Nicole MD Primary Care Provider [phone] Reason for Visit * Reason Comments Rheumatoid Arthritis followup Encounter Details Date Type Department Care Team (Late st Contact Info) Description 07/05/2009 5:15 PM DRILLING SUPERINTENDENT Office Visit [facility] - Rheumatology [address] [place] [address] [phone] Isidro Heredia MD [address] [place] [address] Rheumatoid Arthritis (HCC) (Primary Dx); Osteopenia; Subacromial [...] Comments Blood Pressure 100/80 07/05/2009 5:37 PM DRILLING SUPERINTENDENT Pulse 60 07/05/2009 5:37 PM DRILLING SUPERINTENDENT Temperature - - Respiratory Rate - - Oxygen Saturation - - Inhaled Oxygen Concentration - - Weight 110.2 kg (243 lb) 07/05/2009 5:37 PM DRILLING SUPERINTENDENT Height - - Body Mass Index 34.87 [...] bursa. Patient tolerated procedure well without complications. LING SUPERINTENDENT * Emily Salinas RN - 07/05/2009 5:40 PM CST BP 100/80 Pulse 60 Wt 110.224 kg (243 lb) GH level 6/10, except pain in bilateral shoulders 8/10 worst in left shoulder unable to lift a cup LING SUPERINTENDENT documented in this encounter Plan of Treatment Upcoming Encounters Date Type Department Care Team (Late st Contact Info) Description 06/03/2024 1:00 PM DRILLING SUPERINTENDENT Appointment [facility] - Rheumatology [address] [place] [address] 06/03/2024 2:00 PM DRILLING SUPERINTENDENT Office Visit [facility] - Rheumatology [address] [place] [address] Gloria Smith MD [address] [place] [phone] documented as of this encounter Visit Diagnoses Diagnosis Rheumatoid arthritis(714.0) ([facility])- Primary Rheumatoid arthritis Osteopenia Disorder of bone and cartilage, unspecified Subacromial bursitis Other specified disorders of rotator cuff syndrome of shoulder and allied disorders documented in this encounter Care Teams Licensed Vocational Nurse Relationship Specialty Start Date End Date Nolberto Nicole MD PCP - General 07/21/08 12/30/13 documented as of this encounter
--- OUTSIDE RECORDS SUMMARY | 2024-05-03 09:12 | XMS_ITS | Encounter Summary ---
Author Organization [facility] Address [address] [facility] [place] [address] Care Team Providers Care Appetizer Packer Name Role Phone Unavailable Primary Care Provider Unavailabl e Encounter Details Date Type Department Care Team (Late st Contact Info) Description 05/18/2008 Orders Only [facility] - Family Medicine [address] [place] [address] Isidro Heredia MD [address] [place] [address] Social History Tobacco Use Types Packs/Day Years Used Date Smoking Tobacco: Never Assessed Sex and Gender Information Value Date Recorded Sex Assigned at Not on file Gender Identity Not on file Sexual Orientation Not on file documented as of this encounter Plan of Treatment Upcoming Encounters Date Type Department Care Team (Late st Contact Info) Description 06/03/2024 1:00 PM LEAD MANUFACTURING ENGINEER Appointment [facility] - Rheumatology [address] [place] [address] 06/03/2024 2:00 PM LEAD MANUFACTURING ENGINEER Office Visit [facility] - Rheumatology [address] [place] [address] Gloria Smith MD [address] [place] [phone] documented as of this encounter Procedures Procedure Name Priority Date/Time Associated Diagnosis Comments RHEUMATOID FACTOR BLOOD QUANTITATIVE 05/18/2008 5:47 PM LEAD MANUFACTURING ENGINEER C-REACTIVE PROTEIN 05/18/2008 5: 47 PM LEAD MANUFACTURING ENGINEER ERYTHROCYTE SEDIMENTATION RATE 05/18/2008 5:47 PM LEAD MANUFACTURING ENGINEER CBC W AUTO DIFFERENTIAL 05/18/2008 5:47 PM LEAD MANUFACTURING ENGINEER COMPREHENSIVE METABOLIC PANEL 05/18/2008 5:47 PM LEAD MANUFACTURING ENGINEER documented in this encounter Results * C-REACTIVE PROTEIN (05/18/2008 5:47 PM LEAD MANUFACTURING ENGINEER) C-Reactive Protein 1.8 0.0 - 4.9 mg/L [facility] ACCOUNT BILL 05/18/2008 5:47 PM LEAD MANUFACTURING ENGINEER 05/18/2008 10:06 PM LEAD MANUFACTURING ENGINEER Narrative Resulting Agency Comment [facility] [place] [address] ??[facility] [phone] Isidro Heredia MD LAB - CHEMISTRY ORD ERABLES [facility] ACCOUNT BILL * SED RATE WESTERGREN AUTO (05/18/2008 5:47 PM LEAD MANUFACTURING ENGINEER) Erythrocyte Sedimentation Rate Westergren 7 0 - 15 mm/hr [facility] ACCOUNT BILL 05/18/2008 5:47 PM LEAD MANUFACTURING ENGINEER 05/18/2008 10:06 PM LEAD MANUFACTURING ENGINEER Narrative Resulting Agency Comment [facility] [place] [address] ??[facility] [phone] Isidro Heredia MD LAB - HEMATOLOGY OR DERABLES [facility] ACCOUNT BILL * RHEUMATOID FACTOR BLOOD QUANTITATIVE (05/18/2008 5:47 PM LEAD MANUFACTURING ENGINEER) Rheumatoid Factor 5.5 0.0 - 13.9 IU/mL [facility] ACCOUNT BILL 05/18/2008 5:47 PM LEAD MANUFACTURING ENGINEER 05/18/2008 10:06 PM LEAD MANUFACTURING ENGINEER Narrative Resulting Agency Comment [facility] [place] [address] [facility] ??[facility] [phone] Isidro Heredia MD LAB - CHEMISTRY ORD ERABLES [facility] ACCOUNT BILL * COMPREHENSIVE METABOLIC PANEL (05/18/2008 5:47 PM LEAD MANUFACTURING ENGINEER) Glucose 90 65 - 99 mg/dL [facility] [...] IU/L [facility] ACCOUNT BILL 05/18/2008 5:47 PM LEAD MANUFACTURING ENGINEER 05/18/2008 10:06 PM LEAD MANUFACTURING ENGINEER Narrative Resulting Agency Comment [facility] [place] [address] [facility] ??[facility] [phone] Isidro Heredia MD LAB - CHEMISTRY ORD ERABLES [facility] ACCOUNT BILL * CBC W AUTO DIFFERENTIAL (05/18/2008 5:47 PM LEAD MANUFACTURING ENGINEER) WBC 10.5 4.0 - 10.5 x10E3/uL [facility] [...] AVAIL. [facility] ACCOUNT BILL 05/18/2008 5:47 PM LEAD MANUFACTURING ENGINEER 05/18/2008 10:06 PM LEAD MANUFACTURING ENGINEER Narrative [facility] ACCOUNT BILL - 05/19/2008 9:28 AM LEAD MANUFACTURING ENGINEER Additional Result Information HEMATOLOGY COMMENTS: ??BLOOD,URINE ([facility]): RESULT NOT AVAILABLE Resulting Agency Comment [facility] [address] ??[facility] [phone] Isidro Heredia MD LAB - HEMATOLOGY OR DERABLES [facility] ACCOUNT BILL documented in this encounter Visit Diagnoses Not on filedocumented in this encounter
--- OUTSIDE RECORDS SUMMARY | 2024-05-03 09:12 | XMS_ITS | Encounter Summary ---
Author Organization [facility] Address [address] [place] [address] [place] [address] Care Team Providers Care Electric Blanket Wirer Name Role Phone Nolberto Nicole MD Primary Care Provider [phone] Reason for Visit * Reason Comments Rheumatoid Arthritis followup Encounter Details Date Type Department Care Team (Late st Contact Info) Description 07/27/2008 3:30 PM CDT Office Visit [facility] - Rheumatology [address] [place] [address] [phone] Isidro Heredia MD [address] [place], [place] [phone] Rheumatoid Arthritis (HCC) (Primary Dx) Social History [...] st Contact Info) Description 06/03/2024 1:00 PM DEVELOPMENT EDUCATOR Appointment [facility] - Rheumatology [address] [place] [address] 06/03/2024 2:00 PM DEVELOPMENT EDUCATOR Office Visit [facility] - Rheumatology [address] [place] [address] Gloria Smith MD [address] [place] [phone] documented as of this encounter Procedures Procedure [...] PM CDT Narrative Resulting Agency Comment [facility] [address] ??[facility] [phone] Isidro Heredia MD LAB - HEMATOLOGY OR DERABLES [facility] ACCOUNT BILL * C-REACTIVE PROTEIN (07/27/2008 4:39 PM CDT) C-Reactive Protein 3.0 0.0 - 4.9 mg/L [facility] ACCOUNT BILL BLOOD SPECIMEN / Unknown 07/27/2008 4:39 PM CDT 07/27/2008 9:25 PM CDT Narrative Resulting Agency Comment [facility] [address] ??[facility] [phone] Isidro Heredia MD LAB - CHEMISTRY ORD [...] CDT Narrative Resulting Agency Comment [facility] [address] ??[facility] [phone] Isidro Heredia MD LAB - CHEMISTRY ORD [...] RESULT NOT AVAILABLE Resulting Agency Comment [facility] [address] ??[facility] [phone] Isidro Heredia MD LAB - HEMATOLOGY OR DERABLES [facility] ACCOUNT BILL documented in this encounter Visit Diagnoses Diagnosis Rheumatoid arthritis(714.0) (HCC)- Primary Rheumatoid arthritis documented in this encounter Care Teams Electric Blanket Wirer Relationship Specialty Start Date End Date Nolberto Nicole MD PCP - General 07/21/08 12/30/13 documented as of this encounter
--- OUTSIDE RECORDS SUMMARY | 2024-05-03 09:12 | XMS_ITS | Encounter Summary ---
Author Organization [facility] Address [address] [place] [address] [place] [address] Care Team Providers Care Networks Software Consultant Name Role Phone Nolberto Nciole MD Primary Care Provider [phone] Reason for Visit * Reason Comments Follow-up ra Fatigue Encounter Details Date Type Department Care Team (Late st Contact Info) Description 02/08/2009 5:00 PM CDT Office Visit [facility] - Rheumatology [address] [place] [address] Isidro Heredia MD [address] [place] [address] [phone] Rheumatoid Arthritis (HCC) (Primary Dx); Bursitis, Subacromial/Subdelt [...] st Contact Info) Description 06/03/2024 1:00 PM THERMIT WELDING MACHINE OPERATOR Appointment [facility] - Rheumatology [address] [place] [address] 06/03/2024 2:00 PM THERMIT WELDING MACHINE OPERATOR Office Visit [facility] - Rheumatology [address] [place] [address] Gloria Smith MD [address] [place] [address] [phone] Scheduled Orders Name Type Priority Associated Diagnoses Orde r Schedule CBC W AUTO DIFFERENTIAL Lab Routine Rheumatoid Arthritis ([facility]) Ordered: 02/08/2009 COMPREHENSIVE METABOLIC PANEL Lab Routine Rheumatoid Arthritis ([facility]) Ordered: 02/08/2009 C-REACTIVE PROTEIN Lab Routine Rheumatoid Arthritis ([facility]) Ordered: 02/08/2009 documented as of this encounter Procedures Procedure Name Priority Date/Time Associated Diagnosis Comments ERYTHROCYTE SEDIMENTATION RATE Routine 02/08/2009 6:07 PM CDT Rheumatoid Arthritis ([facility]) documented in this encounter Results * SED RATE WESTERGREN AUTO (02/08/2009 6:07 PM CDT) Erythrocyte Sedimentation Rate Westergren 7 0 - 15 mm/hr [facility] ACCOUNT BILL BLOOD SPECIMEN / Unknown 02/08/2009 6:07 PM CDT 02/08/2009 9:30 PM CDT Narrative Resulting Agency Comment [facility] [address] ??[facility] [phone] Isidro Heredia MD LAB - HEMATOLOGY OR DERABLES [facility] ACCOUNT BILL documented in this encounter Visit Diagnoses Diagnosis Rheumatoid arthritis(714.0) ([facility])- Primary Rheumatoid arthritis Bursitis, subacromial/subdeltoid Other specified disorders of rotator cuff syndrome of shoulder and allied disorders documented in this encounter Care Teams Networks Software Consultant Relationship Specialty Start Date End Date Nolberto Nicole MD PCP - General 07/21/08 12/30/13 documented as of this encounter
--- OUTSIDE RECORDS SUMMARY | 2024-05-03 09:12 | XMS_ITS | Encounter Summary ---
Author Organization [facility] Address [address] [place] [address] [place] [address] Care Team Providers Care Candy Depositing Machine Operator Name Role Phone Nolberto Nicole MD Primary Care Provider [phone] Reason for Visit * Reason Comments Follow-up ra Encounter Details Date Type Department Care Team (Late st Contact Info) Description 04/05/2009 3:00 PM FRONT DESK AUXILIARY Office Visit [facility] - Rheumatology [address] [place] [address] [phone] Isidro Heredia MD [address] [place] [address] Rheumatoid Arthritis (HCC) (Primary Dx) Social History [...] Comments Blood Pressure 130/74 04/05/2009 3:07 PM FRONT DESK AUXILIARY Pulse 84 04/05/2009 3:07 PM FRONT DESK AUXILIARY Temperature - - Respiratory Rate - - Oxygen Saturation - - Inhaled Oxygen Concentration - - Weight 107.5 kg (237 lb) 04/05/2009 3:07 PM FRONT DESK AUXILIARY Height - - Body Mass Index 34.01 02/08/2009 5:43 PM CDT documented in this encounter Progress Notes * Rea Hagan MA - 04/13/2009 1:04 PM CSTQuick Note: Sent letter T DESK AUXILIARY * Isidro Heredia MD - 04/11/2009 6:52 PM CSTQurolando Note: Mtx ok T DESK AUXILIARY * Isidro Heredia MD - 04/05/2009 3:37 [...] Follow up in office in 4 weeks T DESK AUXILIARY * Rea Hagan MA - 04/05/2009 3:09 PM CST Chief Complaint Patient presents with ??? Follow-up ra BP 130/74 Pulse 84 Wt 107.502 kg (237 lb) T DESK AUXILIARY documented in this encounter Plan of Treatment Upcoming Encounters Date Type Department Care Team (Late st Contact Info) Description 06/03/2024 1:00 PM FRONT DESK AUXILIARY Appointment [facility] - Rheumatology [address] [place] [address] 06/03/2024 2:00 PM FRONT DESK AUXILIARY Office Visit [facility] - Rheumatology [address] [place] [address] [phone] Gloria Smith MD [address] [place] [phone] documented as of this encounter Procedures Procedure Name Priority Date/Time Associated Diagnosis Comments RHEUMATOID FACTOR BLOOD QUANTITATIVE Routine 04/05/2009 3:13 PM FRONT DESK AUXILIARY Rheumatoid Arthritis (HCC) C-REACTIVE PROTEIN Routine 04/05/2009 3: 13 PM FRONT DESK AUXILIARY Rheumatoid Arthritis (HCC) CBC W AUTO DIFFERENTIAL Routine 04/05/2009 3:13 PM FRONT DESK AUXILIARY Rheumatoid Arthritis (HCC) COMPREHENSIVE METABOLIC PANEL Routine 04/05/2009 3:13 PM FRONT DESK AUXILIARY Rheumatoid Arthritis (HCC) documented in this encounter Results * RHEUMATOID FACTOR BLOOD QUANTITATIVE (04/05/2009 3:13 PM FRONT DESK AUXILIARY) Rheumatoid Factor 8.0 0.0 - 13.9 IU/mL [facility] ACCOUNT BILL BLOOD SPECIMEN / Unknown 04/05/2009 3:13 PM FRONT DESK AUXILIARY 04/05/2009 10:32 PM FRONT DESK AUXILIARY Narrative Resulting Agency [facility] [address] [facility] ??[facility] [phone] Isidro Heredia MD LAB - CHEMISTRY ORD ERABLES [facility] ACCOUNT BILL * C-REACTIVE PROTEIN (04/05/2009 3:13 PM FRONT DESK AUXILIARY) C-Reactive Protein 3.6 0.0 - 4.9 mg/L [facility] ACCOUNT BILL BLOOD SPECIMEN / Unknown 04/05/2009 3:13 PM FRONT DESK AUXILIARY 04/05/2009 10:32 PM FRONT DESK AUXILIARY Narrative Resulting Agency Comment [facility] [place] [id number] [facility] ??[facility] [phone] Isidro Heredia MD LAB - CHEMISTRY ORD ERABLES [facility] ACCOUNT BILL * COMPREHENSIVE METABOLIC PANEL (04/05/2009 3:13 PM FRONT DESK AUXILIARY) Glucose 93 65 - 99 mg/dL [facility] [...] BLOOD SPECIMEN / Unknown 04/05/2009 3:13 PM FRONT DESK AUXILIARY 04/05/2009 10:32 PM FRONT DESK AUXILIARY Narrative Resulting Agency Comment [facility] [place] [id number] [facility] ??[facility] [phone] Isidro Heredia MD LAB - CHEMISTRY ORD ERABLES [facility] ACCOUNT BILL * CBC W AUTO DIFFERENTIAL (04/05/2009 3:13 PM FRONT DESK AUXILIARY) WBC 8.6 4.0 - 10.5 x10E3/uL [facility] [...] BLOOD SPECIMEN / Unknown 04/05/2009 3:13 PM FRONT DESK AUXILIARY 04/05/2009 10:32 PM FRONT DESK AUXILIARY Narrative [facility] ACCOUNT BILL - 04/06/2009 8:31 AM FRONT DESK AUXILIARY Additional Result Information HEMATOLOGY COMMENTS: ??BLOOD,URINE ([facility]): RESULT NOT AVAILABLE Resulting Agency Comment [facility] [address] ??[facility] [phone] Isidro Heredia MD LAB - HEMATOLOGY OR DERABLES Performing Organization Address City/State/[facility] Co de Phone Number [facility] ACCOUNT BILL documented in this encounter Visit Diagnoses Diagnosis Rheumatoid arthritis(714.0) ([facility])- Primary Rheumatoid arthritis documented in this encounter Care Teams Candy Depositing Machine Operator Relationship Specialty Start Date End Date Nolberto Nicole MD PCP - General 07/21/08 12/30/13 documented as of this encounter
--- OUTSIDE RECORDS SUMMARY | 2024-05-03 09:12 | XMS_ITS | Encounter Summary ---
Author Organization [facility] Address [address] [place] [address] [place] [address] Care Team Providers Care Certified Nurses' Aide Name Role Phone Nolberto Nicole MD Primary Care Provider [phone] Reason for Visit * Reason Comments Rheumatoid Arthritis followup Encounter Details Date Type Department Care Team (Late st Contact Info) Description 10/12/2008 5:15 PM CDT Office Visit [facility] - Rheumatology [address] [place] [address] Isidro Heredia MD [address] [place] [address] Rheumatoid Arthritis (HCC) (Primary Dx); GERD (Gastroesophageal [...] st Contact Info) Description 06/03/2024 1:00 PM INSURANCE CUSTOMER SERVICE SPECIALIST Appointment [facility] - Rheumatology [address] [place] [address] 06/03/2024 2:00 PM INSURANCE CUSTOMER SERVICE SPECIALIST Office Visit [facility] - Rheumatology [address] [place] [address] Gloria Smith MD [address] [place] [address] [place] [id number] Scheduled Orders Name Type Priority Associated Diagnoses [...] PM CDT Narrative Resulting Agency Comment [facility] [place] [phone] [facility] ??[facility] [phone] Isidro Heredia MD LAB - HEMATOLOGY OR DERABLES [facility] ACCOUNT BILL * (ABNORMAL) C-REACTIVE PROTEIN (10/12/2008 6:16 PM CDT) C-Reactive Protein 12.9(H) 0.0 - 4.9 mg/L [facility] ACCOUNT BILL BLOOD SPECIMEN / Unknown 10/12/2008 6:16 PM CDT 10/12/2008 9:22 PM CDT Narrative Resulting Agency Comment [facility] [place] [address] [facility] ??[facility] [phone] Isidro Heredia MD LAB - CHEMISTRY ORD [...] Narrative Resulting Agency Comment [facility] [place] [address] [facility] ??[facility] [phone] Isidro Heredia MD LAB - CHEMISTRY ORD ERABLES [facility] ACCOUNT BILL documented in this encounter Visit Diagnoses Diagnosis Rheumatoid arthritis(714.0) (HCC)- Primary Rheumatoid arthritis GERD (gastroesophageal reflux disease) Esophageal reflux Osteopenia Disorder of bone and cartilage, unspecified documented in this encounter Care Teams Certified Nurses' Aide Relationship Specialty Start Date End Date Nolberto Nicole MD PCP - General 07/21/08 12/30/13 documented as of this encounter
--- OUTSIDE RECORDS SUMMARY | 2024-05-03 09:12 | XMS_ITS | Encounter Summary ---
Author Organization [facility] Address [address] [place] [address] Care Team Providers Care Plant Tender Name Role Phone Nolberto Nicole MD Primary Care Provider [phone] Reason for Visit * Reason Comments Chest [...] Description 08/30/2009 5:30 PM CDT Office Visit [facility] - Rheumatology [address] [place] [address] Isidro Heredia MD [address] [place], [place] [phone] Rheumatoid Arthritis (HCC) (Primary Dx) Social History [...] Contact Info) Description 06/03/2024 1:00 PM SUPERVISOR SHUTTLE PREPARATION Appointment [facility] - Rheumatology [address] [place] [address] [phone] 06/03/2024 2:00 PM SUPERVISOR SHUTTLE PREPARATION Office Visit [facility] - Rheumatology [address] [place] [address] Gloria Smith MD [address] [place] [phone] Scheduled Orders Name Type Priority Associated Diagnoses Orde r Schedule CBC W AUTO DIFFERENTIAL Lab Routine Rheumatoid Arthritis ([facility]) Ordered: 08/30/2009 COMPREHENSIVE METABOLIC PANEL Lab Routine Rheumatoid Arthritis ([facility]) Ordered: 08/30/2009 RAQUEL W REFLX (POSITIVE) (PO REF LAB) Lab Routine Rheumatoid Arthritis ([facility]) Ordered: 08/30/2009 documented as of this encounter Procedures Procedure Name Priority Date/Time Associated Diagnosis Comments CYCLIC CITRUL PEPTIDE ANTIBODY IGG/IGA (CCP) Routine 08/30/2009 6:07 PM CDT Rheumatoid Arthritis ([facility]) RHEUMATOID FACTOR BLOOD QUANTITATIVE Routine 08/30/2009 6:07 PM CDT Rheumatoid Arthritis ([facility]) C-REACTIVE PROTEIN Routine 08/30/2009 6: 07 PM CDT Rheumatoid Arthritis ([facility]) ERYTHROCYTE SEDIMENTATION RATE Routine 08/30/2009 6:07 PM CDT Rheumatoid Arthritis (HCC) documented in this encounter Results * SED RATE WESTERGREN AUTO (08/30/2009 6:07 PM CDT) Erythrocyte Sedimentation Rate Westergren 14 0 - 15 mm/hr [facility] ACCOUNT BILL BLOOD SPECIMEN / Unknown 08/30/2009 6:07 PM CDT 08/30/2009 8:42 PM CDT Narrative Resulting Agency Comment [facility] [place] [address] ??[facility] [phone] Isidro Heredia MD LAB - HEMATOLOGY OR DERABLES [facility] ACCOUNT BILL * RHEUMATOID FACTOR BLOOD QUANTITATIVE (08/30/2009 6:07 PM CDT) Rheumatoid Factor 6.8 0.0 - 13.9 IU/mL [facility] ACCOUNT BILL BLOOD SPECIMEN / Unknown 08/30/2009 6:07 PM CDT 08/30/2009 8:42 PM CDT Narrative Resulting Agency Comment [facility] [address] ??[facility] [phone] Isidro Heredia MD LAB - CHEMISTRY ORD ERABLES Performing Organization Address [facility] Co de Phone Number [facility] [...] PM CDT Narrative Resulting Agency Comment [facility] [address] ??[facility] [phone] Isidro Heredia MD LAB - SEROLOGY MARII ARAUJO [facility] ACCOUNT BILL * C-REACTIVE PROTEIN (08/30/2009 6:07 PM CDT) C-Reactive Protein 2.8 0.0 - 4.9 mg/L [facility] ACCOUNT BILL BLOOD SPECIMEN / Unknown 08/30/2009 6:07 PM CDT 08/30/2009 8:42 PM CDT Narrative Resulting Agency Comment [facility] [place] [id number] [facility] ??[facility] [phone] Isidro Heredia MD LAB - CHEMISTRY ORD DONNIE [facility] ACCOUNT BILL documented in this encounter Visit Diagnoses Diagnosis Rheumatoid arthritis(714.0) ([facility])- Primary Rheumatoid arthritis documented in this encounter Care Teams Plant Tender Relationship Specialty Start Date End Date Nolberto Nicole MD PCP - General 07/21/08 12/30/13 documented as of this encounter
--- OUTSIDE RECORDS SUMMARY | 2024-05-03 09:12 | XMS_ITS | Encounter Summary ---
Author Organization [facility] Address [address] [place] [address] Care Team Providers Care Borderer Name Role Phone Nolberto Nicole MD Primary Care Provider [phone] Encounter Details Date Type Department Care Team (Late Contact Info) Description 06/07/2009 Orders Only [facility] - Rheumatology [address] [place] [address] Isidro Heredia MD [address] [place] [address] Social History Tobacco Use Types Packs/Day [...] Contact Info) Description 06/03/2024 1:00 PM LOGISTICS OPERATIONS MANAGER Appointment [facility] - Rheumatology [address] [place] [address] 06/03/2024 2:00 PM LOGISTICS OPERATIONS MANAGER Office Visit [facility] - Rheumatology [address] [place] [address] Gloria Smith MD [address] [place] [phone] documented as of this encounter Procedures Procedure Name Priority Date/Time Associated Diagnosis Comments C-REACTIVE PROTEIN 06/07/2009 5: 41 PM LOGISTICS OPERATIONS MANAGER ERYTHROCYTE SEDIMENTATION RATE 06/07/2009 5:41 PM LOGISTICS OPERATIONS MANAGER documented in this encounter Results * C-REACTIVE PROTEIN (06/07/2009 5:41 PM LOGISTICS OPERATIONS MANAGER) C-Reactive Protein 2.0 0.0 - 4.9 mg/L [facility] ACCOUNT BILL 06/07/2009 5:41 PM LOGISTICS OPERATIONS MANAGER 06/07/2009 9:20 PM LOGISTICS OPERATIONS MANAGER Narrative Resulting Agency Comment [facility] [place] [id number] ??[facility] [phone] Isidro Heredia MD LAB - CHEMISTRY ORD ERABLES Performing Organization Address City/[facility]/ZIP Co de Phone Number [facility] ACCOUNT BILL * SED RATE WESTERGREN AUTO (06/07/2009 5:41 PM LOGISTICS OPERATIONS MANAGER) Erythrocyte Sedimentation Rate Westergren 10 0 - 15 mm/hr [facility] ACCOUNT BILL 06/07/2009 5:41 PM LOGISTICS OPERATIONS MANAGER 06/07/2009 9:20 PM LOGISTICS OPERATIONS MANAGER Narrative Resulting Agency Comment [facility] [place] [address] [facility] ??[facility] [phone] Isidro Heredia MD LAB - HEMATOLOGY OR DERABLES [facility] ACCOUNT BILL documented in this encounter Visit Diagnoses Not on filedocumented in this encounter Care Teams Borderer Relationship Specialty Start Date End Date Nolberto Nicole MD PCP - General 07/21/08 12/30/13 documented as of this encounter
--- OUTSIDE RECORDS SUMMARY | 2024-05-03 09:12 | XMS_ITS | Encounter Summary ---
Author Organization [facility] Address [address] [place] [address] Care Team Providers Care Test Evaluator Name Role Phone Nolberto Nicole MD Primary Care Provider [phone] Reason for Visit * Reason Comments Follow-up ra General pt has cloudy vision stop plaquenil. Fatigue Pain Muscle Encounter Details Date Type Department Care Team (Late st Contact Info) Description 08/02/2009 5:15 PM CDT Office Visit [facility] - Rheumatology [address] [place] [address] [phone] Isidro Heredia MD [address] [place] [address] Rheumatoid Arthritis (HCC) (Primary Dx); Osteopenia [...] st Contact Info) Description 06/03/2024 1:00 PM JUKEBOX ROUTE DRIVER Appointment [facility] - Rheumatology [address] [place] [address] [phone] 06/03/2024 2:00 PM JUKEBOX ROUTE DRIVER Office Visit [facility] - Rheumatology [address] [place] [address] [phone] Gloria Smith MD [address] [place] [phone] Scheduled Orders Name Type Priority Associated Diagnoses Orde r Schedule CBC W AUTO DIFFERENTIAL Lab Routine Rheumatoid Arthritis ([facility]) Ordered: 08/02/2009 COMPREHENSIVE METABOLIC PANEL Lab Routine Rheumatoid Arthritis ([facility]) Ordered: 08/02/2009 C-REACTIVE PROTEIN Lab Routine Rheumatoid Arthritis ([facility]) Ordered: 08/02/2009 documented as of this encounter Procedures Procedure Name Priority Date/Time Associated Diagnosis Comments ERYTHROCYTE SEDIMENTATION RATE Routine 08/02/2009 5:24 PM CDT Rheumatoid Arthritis ([facility]) documented in this encounter Results * SED RATE WESTERGREN AUTO (08/02/2009 5:24 PM CDT) Erythrocyte Sedimentation Rate Westergren 11 0 - 15 mm/hr [facility] ACCOUNT BILL BLOOD SPECIMEN / Unknown 08/02/2009 5:24 PM CDT 08/02/2009 9:21 PM CDT Narrative Resulting Agency Comment [facility] [address] ??[facility] [phone] Isidro Heredia MD LAB - HEMATOLOGY OR DERABLES [facility] ACCOUNT BILL documented in this encounter Visit Diagnoses Diagnosis Rheumatoid arthritis(714.0) (HCC)- Primary Rheumatoid arthritis Osteopenia Disorder of bone and cartilage, unspecified documented in this encounter Care Teams Test Evaluator Relationship Specialty Start Date End Date Nolberto Nicole MD PCP - General 07/21/08 12/30/13 documented as of this encounter
--- OUTSIDE RECORDS SUMMARY | 2024-05-03 09:12 | XMS_ITS | Encounter Summary ---
Author Organization [facility] Address [address] [place] [address] [place] [address] Care Team Providers Care Director Of Promotions Name Role Phone Nolberto Nicole MD Primary Care Provider [phone] Reason for Visit * Reason Comments Rheumatoid Arthritis followup Encounter Details Date Type Department Care Team (Late st Contact Info) Description 08/24/2008 5:45 PM CDT Office Visit [facility] - Rheumatology [address] [place] [address] [phone] Isidro Heredia MD [address] [place] [address] Rheumatoid Arthritis (HCC) (Primary Dx); Osteopenia Social [...] ,TSH,hemoglobin AIc fax results to Dr. Alonso [phone] [place] [employer] documented in this encounter Plan of Treatment Upcoming Encounters Date Type Department Care Team (Late st Contact Info) Description 06/03/2024 1:00 PM BEAUTY ADVISOR Appointment [facility] - Rheumatology [address] [place] [address] [phone] 06/03/2024 2:00 PM BEAUTY ADVISOR Office Visit [facility] - Rheumatology [address] [place] [address] [phone] Gloria Smith MD [address] [place] [phone] Scheduled Orders Name Type Priority Associated Diagnoses [...] ?<7.0 ?Healthy Adult ?4.8 - 5.9 ?(DCCT/NGSP) ?[place] [employer]'s Summary of Glycemic ?Recommendations for Adults with Diabetes: ?Hemoglobin A1c <7.0%. More stringent glycemic goals ?(A1c <6.0%) may further reduce complications at the ?cost of increased risk of hypoglycemia. BLOOD SPECIMEN / Unknown 08/24/2008 6:37 PM CDT 08/24/2008 9:56 PM CDT Narrative Resulting Agency Comment [facility] [place] [address] ??[facility] [phone] Isidro Heredia MD LAB - CHEMISTRY ORD ERABLES [facility] INSURANCE BILL * TSH (08/24/2008 6:37 PM CDT) TSH 1.487 0.450 - 4.500 uIU/mL [facility] INSURANCE BILL BLOOD SPECIMEN / Unknown 08/24/2008 6:37 PM CDT 08/24/2008 9:56 PM CDT Narrative Resulting Agency Comment [facility] [address] ??[facility] [phone] Isidro Heredia MD LAB - CHEMISTRY ORD ERABLES Performing Organization Address [facility] Co de Phone Number [facility] INSURANCE BILL * URIC ACID BLOOD (08/24/2008 6:37 PM CDT) Uric Acid 5.1 2.4 - 8.2 mg/dL [facility] INSURANCE BILL BLOOD SPECIMEN / Unknown 08/24/2008 6:37 PM CDT 08/24/2008 9:56 PM CDT Narrative Resulting Agency Comment [facility] [address] ??[facility] [phone] Isidro Heredia MD LAB - CHEMISTRY ORD ERABLES Performing Organization Address City/[facility] Co de Phone Number [facility] INSURANCE BILL * T4 TOTAL (08/24/2008 6:37 PM CDT) T4 Total 8.7 4.5 - 12.0 ug/dL [facility] INSURANCE BILL BLOOD SPECIMEN / Unknown 08/24/2008 6:37 PM CDT 08/24/2008 9:56 PM CDT Narrative Resulting Agency Comment [facility] [address] ??[facility] [phone] Isidro Heredia MD LAB - CHEMISTRY ORD ERABLES [facility] INSURANCE BILL * SED RATE WESTERGREN AUTO (08/24/2008 6:37 PM CDT) Erythrocyte Sedimentation Rate Westergren 10 0 - 15 mm/hr [facility] INSURANCE BILL BLOOD SPECIMEN / Unknown 08/24/2008 6:37 PM CDT 08/24/2008 9:56 PM CDT Narrative Resulting Agency Comment [facility] ??[facility] [phone] Isidro Heredia MD LAB - HEMATOLOGY OR DERABLES Performing Organization Address [facility] Co de Phone Number [facility] INSURANCE BILL * (ABNORMAL) C-REACTIVE PROTEIN (08/24/2008 6:37 PM CDT) C-Reactive Protein 5.2(H) 0.0 - 4.9 mg/L [facility] INSURANCE BILL BLOOD SPECIMEN / Unknown 08/24/2008 6:37 PM CDT 08/24/2008 9:56 PM CDT Narrative Resulting Agency Comment [address] ??[facility] [phone] Isidro Heredia MD LAB - CHEMISTRY ORD ERABLES Performing Organization Address [facility] Co de Phone Number [facility] [...] CDT Narrative Resulting Agency Comment [facility] [address] ??[facility] [phone] Isidro Heredia MD LAB - CHEMISTRY ORD [...] RESULT NOT AVAILABLE Resulting Agency Comment [facility] [address] ??[facility] [phone] Isidro Heredia MD LAB - HEMATOLOGY OR DERABLES [facility] INSURANCE BILL documented in this encounter Visit Diagnoses Diagnosis Rheumatoid arthritis(714.0) ([facility])- Primary Rheumatoid arthritis Osteopenia Disorder of bone and cartilage, unspecified documented in this encounter Care Teams Director Of Promotions Relationship Specialty Start Date End Date Nolberto Nicole MD PCP - General 07/21/08 12/30/13 documented as of this encounter
--- OUTSIDE RECORDS SUMMARY | 2024-05-03 09:12 | XMS_ITS | Encounter Summary ---
Author Organization [facility] Address [address] [facility] [place] [address] Care Team Providers Care New Accounts Banking Representative Name Role Phone Nolberto Nicole MD Primary Care Provider [phone] Isidro Heredia MD Unavailable [phone] Tomas Hyman MD Primary Care Provider [phone] Tomas Hyman MD Primary Care Provider [phone] Encounter Details Date Type Department Care Team (Late st Contact Info) Description 08/18/2008 [facility] Outpatient Visit EXTERNAL NON-[facility] DEPT Isidro Heredia MD [address] [place] [address] Social History Tobacco Use Types Packs/Day [...] (Late Contact Info) Description 06/03/2024 1:00 PM PROFESSOR OF LATIN AMERICAN STUDIES Appointment [facility] - Rheumatology [address] [place] [address] [phone] 06/03/2024 2:00 PM PROFESSOR OF LATIN AMERICAN STUDIES Office Visit [facility] - Rheumatology [address] [place] [address] Gloria Smith MD [facility] [place] [phone] documented as of this encounter Visit Diagnoses Not on filedocumented in this encounter Care Teams New Accounts Banking Representative Relationship Specialty Start Date End Date Nolberto Nicole MD PCP - General 07/21/08 12/30/13 Tomas Hyman MD [address] [place] [address] PCP - General Family Medicine 12/31/13 05/09/18 Tomas Hyman MD [address] [place] [address] PCP - General Family Medicine 09/05/18 Isidro Heredia MD Rheumatology 02/09/11 documented as of this encounter
--- OUTSIDE RECORDS SUMMARY | 2024-05-03 09:12 | XMS_ITS | Encounter Summary ---
Author Organization [facility] Address [address] [facility] [place] [address] Care Team Providers Care Offender Employment Specialist Name Role Phone Nolberto Nicole MD Primary Care Provider [phone] Encounter Details Date Type Department Care Team (Late Contact Info) Description 11/16/2008 Orders Only [facility] - Rheumatology [address] [place] [address] Isidro Heredia MD [address] [place] [address] Social History Tobacco Use Types Packs/Day [...] (Late Contact Info) Description 06/03/2024 1:00 PM CHANNEL OPENER Appointment [facility] - Rheumatology [address] [place] [address] 06/03/2024 2:00 PM CHANNEL OPENER Office Visit [facility] - Rheumatology [address] [place] [address] Gloria Smith MD [address] [place] [phone] documented as of this encounter Procedures Procedure Name Priority Date/Time Associated Diagnosis Comments C-REACTIVE PROTEIN 11/16/2008 6: 09 PM CDT ERYTHROCYTE SEDIMENTATION RATE 11/16/2008 6:09 PM CDT documented in this encounter Results * C-REACTIVE PROTEIN (11/16/2008 6:09 PM CDT) C-Reactive Protein 4.8 0.0 - 4.9 mg/L [facility] ACCOUNT BILL 11/16/2008 6:09 PM CDT 11/16/2008 9:41 PM CDT Narrative Resulting Agency Comment [facility] [place] [address] ??[facility] [phone] Isidro Heredia MD LAB - CHEMISTRY ORD ERABLES Performing Organization Address City/[facility]/ZIP Co de Phone Number [facility] ACCOUNT BILL * (ABNORMAL) SED RATE WESTERGREN AUTO (11/16/2008 6:09 PM CDT) Erythrocyte Sedimentation Rate Westergren 20(H) 0 - 15 mm/hr [facility] ACCOUNT BILL 11/16/2008 6:09 PM CDT 11/16/2008 9:41 PM CDT Narrative Resulting Agency Comment [facility] [place] [address] [facility] ??[facility] hospital [phone] Isidro Heredia MD LAB - HEMATOLOGY OR DERABLES [facility] ACCOUNT BILL documented in this encounter Visit Diagnoses Not on filedocumented in this encounter Care Teams Offender Employment Specialist Relationship Specialty Start Date End Date Nolberto Nicole MD PCP - General 07/21/08 12/30/13 documented as of this encounter
--- OUTSIDE RECORDS SUMMARY | 2024-05-03 09:12 | XMS_ITS | Encounter Summary ---
Author Organization [facility] Address [address] [facility] [place] [address] Care Team Providers Care Highway Safety Engineer Name Role Phone Nolberto Nicole MD Primary Care Provider [phone] Reason for Visit * Reason Comments General want to discuss swit fred [id number] - nausea. want to take Percocet General taking Cipro for div erticulitis Encounter Details Date Type Department Care Team (Late st Contact Info) Description 12/14/2008 5:15 PM CDT Office Visit [facility] Medical [facility] - Rheumatology [address] [place] [address] Isidro Heredia MD [address] [place], [place] [phone] Rheumatoid Arthritis (HCC) (Primary Dx) Social History [...] with ??? General want to discuss switching [id number] - nausea. want to take Percocet 5/325 [...] with ??? General want to discuss switching [id number] - nausea. want to take Percocet 5/325 ??? General taking Cipro for diverticulitis BP 128/86 Pulse 88 Wt 109.77 kg (242 lb) documented in this encounter Plan of Treatment Upcoming Encounters Date Type Department Care Team (Late st Contact Info) Description 06/03/2024 1:00 PM FIRE MARSHAL REFINERY Appointment [facility] - Rheumatology [address] [place] [address] 06/03/2024 2:00 PM FIRE MARSHAL REFINERY Office Visit [facility] - Rheumatology [address] [place] [address] Gloria Smith MD [address] [place] [phone] documented as of this encounter Procedures [...] PM CDT Narrative Resulting Agency Comment [facility] [place] [address] [facility] ??[facility] [phone] Isidro Heredia MD LAB - HEMATOLOGY OR DERABLES [facility] ACCOUNT BILL * C-REACTIVE PROTEIN (12/14/2008 5:54 PM CDT) C-Reactive Protein 1.6 0.0 - 4.9 mg/L [facility] ACCOUNT BILL BLOOD SPECIMEN / Unknown 12/14/2008 5:54 PM CDT 12/14/2008 9:29 PM CDT Narrative Resulting Agency Comment [facility] [address] ??[facility] [phone] Isidro Heredia MD LAB - CHEMISTRY ORD [...] CDT Narrative Resulting Agency Comment [facility] [address] ??[facility] [phone] Isidro Heredia MD LAB - CHEMISTRY ORD [...] RESULT NOT AVAILABLE Resulting Agency Comment [facility] [address] ??[facility] [phone] Isidro Heredia MD LAB - HEMATOLOGY OR DERABLES [facility] ACCOUNT BILL documented in this encounter Visit Diagnoses Diagnosis Rheumatoid arthritis(714.0) ([facility])- Primary Rheumatoid arthritis documented in this encounter Care Teams Highway Safety Engineer Relationship Specialty Start Date End Date Nolberto Nicole MD PCP - General 07/21/08 12/30/13 documented as of this encounter
--- OUTSIDE RECORDS SUMMARY | 2024-05-03 09:12 | XMS_ITS | Encounter Summary ---
Author Organization [facility] Address [address] [facility] [place] [address] Care Team Providers Care Steward/[employer] Dining Car Name Role Phone Nolberto Nicole MD Primary Care Provider [phone] Encounter Details Date Type Department Care Team (Late Contact Info) Description 03/08/2009 Orders Only [facility] - Rheumatology [address] [place] [address] Isidro Heredia MD [address] [place] [address] [phone] Social History Tobacco Use Types Packs/Day Years [...] 03/14/2009 6:31 PM CSTQuick Note: Bs 104 ING BOX TENDER documented in this encounter Plan of Treatment Upcoming Encounters Date Type Department Care Team (Late Contact Info) Description 06/03/2024 1:00 PM DRAWING BOX TENDER Appointment [facility] - Rheumatology [address] [place] [address] [phone] 06/03/2024 2:00 PM DRAWING BOX TENDER Office Visit [facility] - Rheumatology [address] [place] [address] [phone] Gloria Smith MD [address] [place] [phone] documented as of this encounter Procedures Procedure Name Priority Date/Time Associated Diagnosis Comments CBC W AUTO DIFFERENTIAL 03/08/2009 4:28 PM DRAWING BOX TENDER COMPREHENSIVE METABOLIC PANEL 03/08/2009 4:28 PM DRAWING BOX TENDER documented in this encounter Results * (ABNORMAL) COMPREHENSIVE METABOLIC PANEL (03/08/2009 4:28 PM DRAWING BOX TENDER) Glucose 104(H) 65 - 99 mg/dL [facility] [...] IU/L [facility] ACCOUNT BILL 03/08/2009 4:28 PM DRAWING BOX TENDER 03/08/2009 9:28 PM DRAWING BOX TENDER Narrative Resulting Agency Comment [facility] [address] ??[facility] [phone] Isidro Heredia MD LAB - CHEMISTRY ORD ERABLES [facility] ACCOUNT BILL * (ABNORMAL) CBC W AUTO DIFFERENTIAL (03/08/2009 4:28 PM DRAWING BOX TENDER) WBC 8.8 4.0 - 10.5 x10E3/uL [facility] [...] AVAIL. [facility] ACCOUNT BILL 03/08/2009 4:28 PM DRAWING BOX TENDER 03/08/2009 9:28 PM DRAWING BOX TENDER Narrative [facility] ACCOUNT BILL - 03/09/2009 6:12 AM DRAWING BOX TENDER Additional Result Information HEMATOLOGY COMMENTS: ??BLOOD,URINE ([facility]): RESULT NOT AVAILABLE Resulting Agency Comment [facility] [address] ??[facility] [phone] Isidro Heredia MD LAB - HEMATOLOGY OR DERABLES [facility] ACCOUNT BILL documented in this encounter Visit Diagnoses Not on filedocumented in this encounter Care Teams Steward/[employer] Dining Car Relationship Specialty Start Date End Date Nolberto Nicole MD PCP - General 07/21/08 12/30/13 documented as of this encounter
--- OUTSIDE RECORDS SUMMARY | 2024-05-03 09:12 | XMS_ITS | Encounter Summary ---
Author Organization [facility] Address [address] [place] [address] [place] [address] Care Team Providers Care Road Roller Operator Name Role Phone Nolberto Nicole MD Primary Care Provider [phone] Reason for Visit * Reason Comments Follow-up ra Encounter Details Date Type Department Care Team (Late st Contact Info) Description 03/08/2009 4:00 PM ROLLING MILL OPERATOR HELPER Office Visit [facility] - Rheumatology [address] [place] [address] [phone] Isidro Heredia MD [address] [place], [place] [phone] Rheumatoid Arthritis (HCC) (Primary Dx); Osteopenia Social [...] Comments Blood Pressure 128/80 03/08/2009 4:03 PM ROLLING MILL OPERATOR HELPER Pulse 92 03/08/2009 4:03 PM ROLLING MILL OPERATOR HELPER Temperature - - Respiratory Rate - - Oxygen Saturation - - Inhaled Oxygen Concentration - - Weight 108.9 kg (240 lb) 03/08/2009 4:03 PM ROLLING MILL OPERATOR HELPER Height - - Body Mass Index 34.44 02/08/2009 5:43 PM CDT documented in this encounter Progress Notes * Rea Hagan MA - 06/17/2009 11:47 AM CSTQuick Note: Sent lab letter to pt re labs ING MILL OPERATOR HELPER * Isidro Heredia MD - 06/13/2009 7:57 AM CSTQuick Note: Mtx ok ING MILL OPERATOR HELPER * Rea Hagan MA - 03/18/2009 4:48 PM CSTQuick Note: Sent letter ING MILL OPERATOR HELPER * Isidro Heredia MD - 03/14/2009 6:32 PM CSTQuick Note: Mtx ok ING MILL OPERATOR HELPER * Isidro Heredia MD - 03/08/2009 4:43 [...] up in office in 4 weeks ING MILL OPERATOR HELPER * Rea Hagan MA - 03/08/2009 4:04 PM CST Chief Complaint Patient presents with ??? Follow-up ra BP 128/80 Pulse 92 Wt 108.863 kg (240 lb) ING MILL OPERATOR HELPER documented in this encounter Plan of Treatment Upcoming Encounters Date Type Department Care Team (Late st Contact Info) Description 06/03/2024 1:00 PM ROLLING MILL OPERATOR HELPER Appointment [facility] - Rheumatology [address] [place] [address] 06/03/2024 2:00 PM ROLLING MILL OPERATOR HELPER Office Visit [facility] - Rheumatology [address] [place] [address] Gloria Smith MD [address] [place] [phone] documented as of this encounter Procedures Procedure Name Priority Date/Time Associated Diagnosis Comments CBC W AUTO DIFFERENTIAL Routine 06/07/2009 5:41 PM ROLLING MILL OPERATOR HELPER Rheumatoid Arthritis (HCC) COMPREHENSIVE METABOLIC PANEL Routine 06/07/2009 5:41 PM ROLLING MILL OPERATOR HELPER Rheumatoid Arthritis (HCC) C-REACTIVE PROTEIN Routine 03/08/2009 4: 28 PM ROLLING MILL OPERATOR HELPER Rheumatoid Arthritis (HCC) ERYTHROCYTE SEDIMENTATION RATE Routine 03/08/2009 4:28 PM ROLLING MILL OPERATOR HELPER Rheumatoid Arthritis (HCC) documented in this encounter Results * COMPREHENSIVE METABOLIC PANEL (06/07/2009 5:41 PM ROLLING MILL OPERATOR HELPER) Glucose 90 65 - 99 mg/dL [facility] [...] BLOOD SPECIMEN / Unknown 06/07/2009 5:41 PM ROLLING MILL OPERATOR HELPER 06/07/2009 9:20 PM ROLLING MILL OPERATOR HELPER Narrative Resulting Agency Comment [facility] [address] ??[facility] [phone] Isidro Heredia MD LAB - CHEMISTRY ORD ERABLES [facility] ACCOUNT BILL * CBC W AUTO DIFFERENTIAL (06/07/2009 5:41 PM ROLLING MILL OPERATOR HELPER) WBC 10.4 4.0 - 10.5 x10E3/uL [facility] [...] BLOOD SPECIMEN / Unknown 06/07/2009 5:41 PM ROLLING MILL OPERATOR HELPER 06/07/2009 9:20 PM ROLLING MILL OPERATOR HELPER Narrative [facility] ACCOUNT BILL - 06/08/2009 7:22 AM ROLLING MILL OPERATOR HELPER Additional Result Information IMMATURE CELLS ([facility]): RESULT NOT AVAILABLE IMMATURE GRANULOCYTES ([facility]): RESULT NOT AVAILABLE IMMATURE GRANS (ABS) ([facility]): RESULT NOT AVAILABLE NRBC ([facility]): RESULT NOT AVAILABLE HEMATOLOGY COMMENTS: ??BLOOD,URINE ([facility]): RESULT NOT AVAILABLE Resulting Agency Comment [facility] [place] [address] ??[facility] [phone] Isidro Heredia MD LAB - HEMATOLOGY OR DERABLES Performing Organization Address City/[facility]/ZIP Co de Phone Number [facility] ACCOUNT BILL * SED RATE WESTERGREN AUTO (03/08/2009 4:28 PM ROLLING MILL OPERATOR HELPER) Erythrocyte Sedimentation Rate Westergren 7 0 - 15 mm/hr [facility] ACCOUNT BILL BLOOD SPECIMEN / Unknown 03/08/2009 4:28 PM ROLLING MILL OPERATOR HELPER 03/08/2009 9:28 PM ROLLING MILL OPERATOR HELPER Narrative Resulting Agency Comment [facility] [place] [address] ??[facility] [phone] Isidro Heredia MD LAB - HEMATOLOGY OR DERABLES Performing Organization Address City/[facility] Co de Phone Number [facility] ACCOUNT BILL * C-REACTIVE PROTEIN (03/08/2009 4:28 PM ROLLING MILL OPERATOR HELPER) C-Reactive Protein 2.4 0.0 - 4.9 mg/L [facility] ACCOUNT BILL BLOOD SPECIMEN / Unknown 03/08/2009 4:28 PM ROLLING MILL OPERATOR HELPER 03/08/2009 9:28 PM ROLLING MILL OPERATOR HELPER Narrative Resulting Agency Comment [facility] [place] [address] ??[facility] [phone] Isidro Heredia MD LAB - CHEMISTRY ORD ERABLES Performing Organization Address City/[facility] Co de Phone Number [facility] ACCOUNT BILL documented in this encounter Visit Diagnoses Diagnosis Rheumatoid arthritis(714.0) ([facility])- Primary Rheumatoid arthritis Osteopenia Disorder of bone and cartilage, unspecified documented in this encounter Care Teams Road Roller Operator Relationship Specialty Start Date End Date Nolberto Nicole MD PCP - General 07/21/08 12/30/13 documented as of this encounter
--- OUTSIDE RECORDS SUMMARY | 2024-05-03 09:12 | XMS_ITS | Encounter Summary ---
Author Organization [facility] Address [address] [place] [address] [place] [address] Care Team Providers Care Tile Setter Supervisor Name Role Phone Nolberto Nicole MD Primary Care Provider [phone] Reason for Visit * Reason Comments Follow-up ra Encounter Details Date Type Department Care Team (Late st Contact Info) Description 06/07/2009 5:15 PM FAMILY SERVICE CASEWORKER Office Visit [facility] - Rheumatology [address] [place] [address] [phone] Isidro Heredia MD [address] [place], [place] [phone] Rheumatoid Arthritis (HCC) (Primary Dx) Social History [...] Comments Blood Pressure 126/76 06/07/2009 5:18 PM FAMILY SERVICE CASEWORKER Pulse 80 06/07/2009 5:18 PM FAMILY SERVICE CASEWORKER Temperature - - Respiratory Rate - - Oxygen Saturation - - Inhaled Oxygen Concentration - - Weight 109.8 kg (242 lb) 06/07/2009 5:18 PM FAMILY SERVICE CASEWORKER Height - - Body Mass Index 34.72 02/08/2009 5:43 PM CDT documented in this encounter Progress Notes * Isidro Heredia MD - 07/07/2009 9:09 PM CSTQuick Note: Mtx ok LY SERVICE CASEWORKER * Isidro Heredia MD - 06/07/2009 5:58 [...] in office in 4 weeks Same meds LY SERVICE CASEWORKER * Rea Hagan MA - 06/07/2009 5:18 PM CST Chief Complaint Patient presents with ??? Follow-up ra BP 126/76 Pulse 80 Wt 109.77 kg (242 lb) LY SERVICE CASEWORKER documented in this encounter Miscellaneous Notes * Letter - Isidro Heredia MD - 08/13/2009 4:50 PM CDT June 07, 2009 RE: CHALINO CASEY : 1960 Nolberto Nicole MD [address] [place] [address] Nicole: This is a 48-year-old [...] Electronically Signed 08/13/2009 16:36:42 CDT DSR/MedQ #: [id number] documented in this encounter Plan of Treatment Upcoming Encounters Date Type Department Care Team (Late st Contact Info) Description 06/03/2024 1:00 PM FAMILY SERVICE CASEWORKER Appointment [facility] - Rheumatology [address] [place] [address] 06/03/2024 2:00 PM FAMILY SERVICE CASEWORKER Office Visit [facility] - Rheumatology [address] [place] [address] Gloria Smith MD [address] [place] [phone] Scheduled Orders Name Type Priority Associated Diagnoses Orde r Schedule SED RATE WESTERGREN AUTO Lab Routine Rheumatoid Arthritis (HCC) Ordered: 06/07/2009 documented as of this encounter Procedures Procedure Name Priority Date/Time Associated Diagnosis Comments C-REACTIVE PROTEIN Routine 07/05/2009 6: 00 PM FAMILY SERVICE CASEWORKER Rheumatoid Arthritis (HCC) CBC W AUTO DIFFERENTIAL Routine 07/05/2009 6:00 PM FAMILY SERVICE CASEWORKER Rheumatoid Arthritis (HCC) COMPREHENSIVE METABOLIC PANEL Routine 07/05/2009 6:00 PM FAMILY SERVICE CASEWORKER Rheumatoid Arthritis (HCC) documented in this encounter Results * (ABNORMAL) C-REACTIVE PROTEIN (07/05/2009 6:00 PM FAMILY SERVICE CASEWORKER) C-Reactive Protein 5.7(H) 0.0 - 4.9 mg/L [facility] ACCOUNT BILL BLOOD SPECIMEN / Unknown 07/05/2009 6:00 PM FAMILY SERVICE CASEWORKER 07/05/2009 10:21 PM FAMILY SERVICE CASEWORKER Narrative Resulting Agency Comment [facility] [address] ??[facility] [phone] Isidro Heredia MD LAB - CHEMISTRY ORD ERABLES [facility] ACCOUNT BILL * COMPREHENSIVE METABOLIC PANEL (07/05/2009 6:00 PM FAMILY SERVICE CASEWORKER) Glucose 88 65 - 99 mg/dL [facility] [...] BLOOD SPECIMEN / Unknown 07/05/2009 6:00 PM FAMILY SERVICE CASEWORKER 07/05/2009 10:21 PM FAMILY SERVICE CASEWORKER Narrative Resulting Agency Comment [facility] [address] ??[facility] [phone] Isidro Heredia MD LAB - CHEMISTRY ORD ERABLES [facility] ACCOUNT BILL * (ABNORMAL) CBC W AUTO DIFFERENTIAL (07/05/2009 6:00 PM FAMILY SERVICE CASEWORKER) WBC 11.2(H) 4.0 - 10.5 x10E3/uL [facility] [...] BLOOD SPECIMEN / Unknown 07/05/2009 6:00 PM FAMILY SERVICE CASEWORKER 07/05/2009 10:21 PM FAMILY SERVICE CASEWORKER Narrative [facility] ACCOUNT BILL - 07/06/2009 7:23 AM FAMILY SERVICE CASEWORKER Additional Result Information IMMATURE CELLS ([facility]): RESULT NOT AVAILABLE IMMATURE GRANULOCYTES ([facility]): RESULT NOT AVAILABLE IMMATURE GRANS (ABS) ([facility]): RESULT NOT AVAILABLE NRBC ([facility]): RESULT NOT AVAILABLE HEMATOLOGY COMMENTS: ??BLOOD,URINE ([facility]): RESULT NOT AVAILABLE Resulting Agency Comment [facility] [address] ??[facility] [phone] Isidro Heredia MD LAB - HEMATOLOGY OR DERABLES [facility] ACCOUNT BILL documented in this encounter Visit Diagnoses Diagnosis Rheumatoid arthritis(714.0) (HCC)- Primary Rheumatoid arthritis documented in this encounter Care Teams Tile Setter Supervisor Relationship Specialty Start Date End Date Nolberto Nicole MD PCP - General 07/21/08 12/30/13 documented as of this encounter
--- OUTSIDE RECORDS SUMMARY | 2024-05-03 09:13 | XMS_ITS | Encounter Summary ---
Author Organization [facility] Address [address] [place] [address] Care Team Providers Care Casket Liner Name Role Phone Unavailable Primary Care Provider Unavailabl e Encounter Details Date Type Department Care Team (Late st Contact Info) Description 03/30/2008 Orders Only [facility] - Family Medicine [address] [place] [address] Isidro Heredia MD [address] [place] [address] Social History Tobacco Use Types Packs/Day Years Used Date Smoking Tobacco: Never Assessed Sex and Gender Information Value Date Recorded Sex Assigned at Not on file Gender Identity Not on file Sexual Orientation Not on file documented as of this encounter Plan of Treatment Upcoming Encounters Date Type Department Care Team (Late st Contact Info) Description 06/03/2024 1:00 PM RN DIABETES EDUCATOR Appointment [facility] - Rheumatology [address] [place] [address] 06/03/2024 2:00 PM RN DIABETES EDUCATOR Office Visit [facility] - Rheumatology [address] [place] [address] Gloria Smith MD [address] [place] [phone] documented as of this encounter Procedures Procedure Name Priority Date/Time Associated Diagnosis Comments C-REACTIVE PROTEIN 03/30/2008 4: 45 PM RN DIABETES EDUCATOR ERYTHROCYTE SEDIMENTATION RATE 03/30/2008 4:45 PM RN DIABETES EDUCATOR CBC W AUTO DIFFERENTIAL 03/30/2008 4:45 PM RN DIABETES EDUCATOR COMPREHENSIVE METABOLIC PANEL 03/30/2008 4:45 PM RN DIABETES EDUCATOR documented in this encounter Results * C-REACTIVE PROTEIN (03/30/2008 4:45 PM RN DIABETES EDUCATOR) C-Reactive Protein 3.2 0.0 - 4.9 mg/L [facility] ACCOUNT BILL 03/30/2008 4:45 PM RN DIABETES EDUCATOR 03/30/2008 10:25 PM RN DIABETES EDUCATOR Narrative Resulting Agency Comment [facility] [address] ??[facility] [phone] Isidro Heredia MD LAB - CHEMISTRY ORD ERABLES Performing Organization Address [facility] de Phone Number [facility] ACCOUNT BILL * SED RATE WESTERGREN AUTO (03/30/2008 4:45 PM RN DIABETES EDUCATOR) Erythrocyte Sedimentation Rate Westergren 10 0 - 15 mm/hr [facility] ACCOUNT BILL 03/30/2008 4:45 PM RN DIABETES EDUCATOR 03/30/2008 10:25 PM RN DIABETES EDUCATOR Narrative Resulting Agency Comment [facility] [address] ??[facility] [phone] Isidro Heredia MD LAB - HEMATOLOGY OR DERABLES Performing Organization Address City/[facility] Co de Phone Number [facility] ACCOUNT BILL * COMPREHENSIVE METABOLIC PANEL (03/30/2008 4:45 PM RN DIABETES EDUCATOR) Glucose 94 65 - 99 mg/dL [facility] [...] IU/L [facility] ACCOUNT BILL 03/30/2008 4:45 PM RN DIABETES EDUCATOR 03/30/2008 10:25 PM RN DIABETES EDUCATOR Narrative Resulting Agency Comment [facility] [address] ??[facility] [phone] Isidro Heredia MD LAB - CHEMISTRY ORD ERABLES [facility] ACCOUNT BILL * CBC W AUTO DIFFERENTIAL (03/30/2008 4:45 PM RN DIABETES EDUCATOR) WBC 8.9 4.0 - 10.5 x10E3/uL [facility] ACCOUNT BILL Comment: Effective April 06, 2008, the pediatric reference intervals ??will be changing on all result codes that are included in ??CBC With Differential/Platelet(777526). RBC 4.57 4.10 - 5.60 x10E6/uL [facility] [...] AVAIL. [facility] ACCOUNT BILL 03/30/2008 4:45 PM RN DIABETES EDUCATOR 03/30/2008 10:25 PM RN DIABETES EDUCATOR Narrative [facility] ACCOUNT BILL - 03/31/2008 9:36 AM RN DIABETES EDUCATOR Additional Result Information HEMATOLOGY COMMENTS: ??BLOOD,URINE ([facility]): RESULT NOT AVAILABLE Resulting Agency Comment [facility] [address] ??[facility] [phone] Isidro Heredia MD LAB - HEMATOLOGY OR DERABLES [facility] ACCOUNT BILL documented in this encounter Visit Diagnoses Not on filedocumented in this encounter
--- OUTSIDE RECORDS SUMMARY | 2024-05-03 09:13 | XMS_ITS | Encounter Summary ---
Author Organization [facility] Address [address] [place] [address] Care Team Providers Care Foil Operator Name Role Phone Unavailable Primary Care Provider Unavailabl e Encounter Details Date Type Department Care Team (Late st Contact Info) Description 04/20/2008 Orders Only [facility] - Family Medicine [address] [place] [address] Isidro Heredia MD [address] [place] [address] Social History Tobacco Use Types Packs/Day Years Used Date Smoking Tobacco: Never Assessed Sex and Gender Information Value Date Recorded Sex Assigned at Not on file Gender Identity Not on file Sexual Orientation Not on file documented as of this encounter Plan of Treatment Upcoming Encounters Date Type Department Care Team (Late st Contact Info) Description 06/03/2024 1:00 PM FILLER SHAKER Appointment [facility] - Rheumatology [address] [place] [address] 06/03/2024 2:00 PM FILLER SHAKER Office Visit [facility] - Rheumatology [address] [place] [address] Gloria Smith MD [address] [place] [phone] documented as of this encounter Procedures Procedure Name Priority Date/Time Associated Diagnosis Comments C-REACTIVE PROTEIN 04/20/2008 5: 32 PM FILLER SHAKER ERYTHROCYTE SEDIMENTATION RATE 04/20/2008 5:32 PM FILLER SHAKER CBC W AUTO DIFFERENTIAL 04/20/2008 5:32 PM FILLER SHAKER COMPREHENSIVE METABOLIC PANEL 04/20/2008 5:32 PM FILLER SHAKER documented in this encounter Results * C-REACTIVE PROTEIN (04/20/2008 5:32 PM FILLER SHAKER) C-Reactive Protein 1.9 0.0 - 4.9 mg/L [facility] ACCOUNT BILL 04/20/2008 5:32 PM FILLER SHAKER 04/20/2008 9:26 PM FILLER SHAKER Narrative Resulting Agency Comment [facility] [address] ??[facility] [phone] Isidro Heredia MD LAB - CHEMISTRY ORD ERABLES Performing Organization Address [facility] Co de Phone Number [facility] ACCOUNT BILL * SED RATE WESTERGREN AUTO (04/20/2008 5:32 PM FILLER SHAKER) Erythrocyte Sedimentation Rate Westergren 6 0 - 15 mm/hr [facility] ACCOUNT BILL 04/20/2008 5:32 PM FILLER SHAKER 04/20/2008 9:26 PM FILLER SHAKER Narrative Resulting Agency Comment [facility] [address] ??[facility] [phone] Isidro Heredia MD LAB - HEMATOLOGY OR DERABLES Performing Organization Address City/[facility] Co de Phone Number [facility] ACCOUNT BILL * COMPREHENSIVE METABOLIC PANEL (04/20/2008 5:32 PM FILLER SHAKER) Glucose 94 65 - 99 mg/dL [facility] [...] IU/L [facility] ACCOUNT BILL 04/20/2008 5:32 PM FILLER SHAKER 04/20/2008 9:26 PM FILLER SHAKER Narrative Resulting Agency Comment [facility] [address] ??[facility] [phone] Isidro Heredia MD LAB - CHEMISTRY ORD ERABLES [facility] ACCOUNT BILL * (ABNORMAL) CBC W AUTO DIFFERENTIAL (04/20/2008 5:32 PM FILLER SHAKER) WBC 9.4 4.0 - 10.5 x10E3/uL [facility] [...] AVAIL. [facility] ACCOUNT BILL 04/20/2008 5:32 PM FILLER SHAKER 04/20/2008 9:26 PM FILLER SHAKER Narrative [facility] ACCOUNT BILL - 04/21/2008 8:27 AM FILLER SHAKER Additional Result Information HEMATOLOGY COMMENTS: ??BLOOD,URINE ([facility]): RESULT NOT AVAILABLE Resulting Agency Comment [facility] [address] ??[facility] [phone] Isidro Heredia MD LAB - HEMATOLOGY OR DERABLES [facility] ACCOUNT BILL documented in this encounter Visit Diagnoses Not on filedocumented in this encounter
--- OUTSIDE RECORDS SUMMARY | 2024-05-03 09:15 | XMS_ITS | Continuity of Care Document ---
Author Organization [facility] Address [address] [place] [address] [place] [address] Phone Care Team Providers Care District Manager Postal Service Name Role Phone Lupis Pena Unavailable Unavailable Procedures Procedure Date Visual Field Examination(s) Eye Exam & Treatment Visual Field Examination(s) Office/outpatient Visit, Est Visual Field Examination(s) Eye Exam & Treatment Refraction Advance Directives Directive Yes / No Effective Date File Name No Information Encounters Encounter Description Practice Location Reason(s) For Visit Diagnoses Date Provider Providers Copied on Encounter [facility], [address] [place] [address] [address], [place], [place], [id number], tel:[phone] [facility] No Information Jun- [address] , [address], [place], [address], [place]. tel:[phone] Referring Provider: Lupis Palafox, [address], [place], [place], [facility]. tel:[phone] [facility], [address] [place] [address] [address], [place], [place], [id number], tel:[phone] [facility] No Information Jun- 9-[address] , [address], [place], [address], [place]. tel:[phone] [facility], [address] [place] [address] [address], [place], [place], [id number], tel:[phone] [facility] No Information b-0 8-201 0 Becky Baugh. [address] , [address], [place], [place], [facility], . tel:[phone] Referring Provider: Lupis Palafox, [address], [place], [facility]. tel:[phone] Office/outpat ient Visit, [facility], [id number] [place] [address] [address], [place], [place], [id number], tel:[phone] [facility] No Information [address] , [address], [place], [facility], . tel:[phone] [facility], [address] [place] [address] [address], [place], [place], [id number], tel:[phone] [facility] No Information Mar-0 2-200 [address] [facility] , [address], [place], [facility], . tel:[phone] Referring Provider: Lupis Palafox, [address], [place], [facility]. tel:[phone] [facility], [address] [place] [address] [address], [place], [place], [id number], tel:[phone] [facility] No Information [address] [facility] , [address], [place], [facility], . tel:[phone] Family History Family Member Type Diagnosis Age At Onset No Information Payers Payer name Insurance type Covered constitution party ID Authoriza tion(s) No Information Social History [...]
== END 2024-04-26 09:06 | disposition left against medical advice (07) ==
PROVIDERS: PCP Family Medicine
DX: R11.2 Nausea with vomiting, unspecified (principal)
CPT/HCPCS: 99199

== ENCOUNTER 2024-04-26 17:12 | Inpatient (IN) | payer MEDICARE, OTHER, SELFPAY ==
[2024-04-26] VITALS (7 sets, daily range): BP systolic 103–120; BP diastolic 58–69; PULSE 92–127; RESP 14–22; TEMP 37.3–38.1; O2SAT 94–98; BMI 34.0
--- NOTE | ~2024-04-26 | XR_ITS ---
XR chest 2V Ordering provider: Allan East PA-C History: 63 years Male with . sepsis abdominal pain . Comparison: June 01, 2019 FINDINGS: MEDIASTINUM: The cardiac silhouette is slightly enlarged. Congestive esmer. LUNGS: No effusions or pneumothorax. Minimal opacification the left lung base medially which may eugenio dmitry atelectasis versus pneumonia. Follow-up and clinical correlation advised. OTHER: No free air under the diaphragm. Degenerative spine. IMPRESSION: Left basilar atelectasis versus pneumonia. Reviewed, dictated and finalized at location A. [employer]
--- NOTE | ~2024-04-26 | CT_ITS ---
CT abdomen pelvis w con Ordering provider: Allan East PA-C History: 63 years Male with . suprapubic pain, nausea/vomiting . Comparison: None. Technique: CT abdomen and pelvis with IV and without oral contrast. Automated exposure control and it erative reconstruction technique were employed. The dose-length product was 1237.72 mGy-cm. 100 mL Om nipaque 350 was given IV. Findings: VISUALIZED LOWER CHEST: Bilateral dependent atelectatic changes posteriorly. Possible focal area of a telectasis in the right middle lobe. Trace of pericardial effusion. UPPER ABDOMINAL ORGANS: Liver: Normal. Gallbladder: Normal. Spleen: Normal. Stomach/duodenum: Small sliding hiatus hernia. Pancreas: Normal. Adrenals: Normal. Kidneys: Tiny stone in the right kidney lower pole. PELVIC ORGANS: The bladder is underfilled with thickened wall. Evaluation for cystitis advised. Enlar ged prostate. Small soft tissue density is seen in the left side of the pelvis which measures 2.5 cm. May be a lymph nodes. Follow-up advised. BOWEL AND MESENTERY: Colon: No evidence of diverticulitis. Postoperative changes seen in the inguinal area. Fecal material is loaded in the colon. Normal appendix. Small Bowel: Normal. No obstruction. Peritoneum/mesentery: No free air or free fluid. No mesenteric lymphadenopathy. RETROPERITONEUM: Mild atheromatous disease of the abdominal aorta. No retroperitoneal lymphadenopat hy. MUSCULOSKELETAL: Superficial soft tissues: Small right fat-containing inguinal hernia. Otherwise, The superficial soft tissues are normal. Bones: Age appropriate degenerative changes of the spine. IMPRESSION: 1. Tiny stone in the right kidney lower pole. 2. Constipation 3. Enlarged prostate. Thickened wall of the urinary bladder which may indicate cystitis. 4. Right fat-containing small inguinal hernia. 5. Soft tissue density in the left side of the pelvis which may be a lymph nodes. Follow-up advised. 6. Small sliding hiatus hernia. Reviewed, dictated and finalized at location A. [employer] OPERATOR IMPRESSION: 1. Tiny stone in the right kidney lower pole. 2. Constipation 3. Enlarged prostate. Thickened wall of the urinary bladder which may indicate cystitis. 4. Right fat-containing small inguinal hernia. 5. Soft tissue density in the left side of the pelvis which may be a lymph nod es. Follow-up advised. 6. Small sliding hiatus hernia.
[2024-04-26 17:58] LABS: Basophils Percent Auto 0.2 % (0.2-1.2); Eosinophils Percent Auto 0.1 % (0-4.4); Hematocrit 36.7 % (42.0-52.0); Hemoglobin 12.5 g/dL (14.0-18.0); Immature Granulocyte Absolute 0.18 K/mm3 (0.00-0.031); Immature Granulocyte Percent A 0.8 % (0-0.5); Lymphocytes Percent Auto 14.2 % (18.3-44.2); Mean Corpuscular HGB Conc 34.1 g/dl (32-36); Mean Corpuscular Hemoglobin 31.1 pg (26-34); Mean Corpuscular Volume 91.3 fl (80-100); Mean Platelet Volume 10.2 fl (7.4-10.4); Monocytes Percent Auto 4.9 % (2.6-8.5); Neutrophils Absolute Auto 16.9 K/mm3 (1.3-6.7); Neutrophils Percent Auto 79.8 % (45.5-73.1); Platelet Count Result 116 k/mm3 (150-375); Red Blood Count 4.02 M/mm3 (4.6-6.20); Red Cell Distribution Width 13.8 % (11.5-14.5); White Blood Count 21.2 K/mm3 (4.5-10.0)
[2024-04-26 18:08] LABS: Alanine Aminotransferase 16 U/L (6-50); Albumin Level 3.8 g/dL (3.5-5.1); Alkaline Phosphatase 68 U/L (38-126); Anion Gap 2 mmol/L (4-12); Aspartate Amino Transferase 24 U/L (17-59); Bilirubin,Total 1.9 mg/dL (0.2-1.3); Blood Urea Nitrogen 18 mg/dL (9-20); Calcium 8.6 mg/dL (8.4-10.2); Carbon Dioxide 28 mmol/L (22-30); Chloride 95 mmol/L (98-107); Estimated CRCL calculation 70 ml/min; Estimated Glomerular Filt Rate > 60; Glucose 99 mg/dL (65-110); Potassium 3.7 mmol/L (3.4-5.0); Sodium 125 mmol/L (137-145)
--- NOTE | 2024-04-26 18:13 | ED_ITS ---
HPI - Male Genitourinary General Chief complaint: Urogenital-Male <Allan East PA-C - Last Filed: 04/27/24 01:12> Stated complaint: suspected UTI or kidney inf <Allan East PA-C - Last Filed: 04/27/24 01:12> Time Seen by Provider: 04/26/24 18:04 <Allan East PA-C - Last Filed: 04/27/24 01:12> Source: patient <Allan East PA-C - Last Filed: 04/27/24 01:12> Mode of arrival: ambulatory <STEFANIA Lr Last Filed: 04/27/24 01:12> Limitations: no limitations <Allan East PA-C - Last Filed: 04/27/24 01:12> History of Present Illness HPI Narrative: This is a 63 year old male with PMH of RA, UTI, prostatitis who presents to the ED for chief complaint of suprapubic abdominal pain and difficulty urinating times 1-2 days. Patient reports the symptoms started to worsen last night and he has been having episodes of urination where he is only able to dribble out a few drops. Patient reports episodes of dizziness as well as several episodes of N/V. States he is unable to keep down anything including water. States he has had prostatitis and UTIs in the past and feels that this is most likely a UTI. He does take immunomodulators for RA. <CEE Lr - Last Filed: 04/27/24 01:12> Related Data Home medications: Home Medications ?Medication ?Instructions ?Recorded ?Confirmed ?Last Taken ?Type atorvastatin 40 mg tablet 40 mg PO HS 05/12/19 04/27/24 03/04/24 History bupropion HCl 100 mg tablet 100 mg PO .q12 05/12/19 04/27/24 03/04/24 History carvedilol 12.5 mg tablet (Coreg) 12.5 mg PO Q12H 05/12/19 04/27/24 03/04/24 History ferrous sulfate 324 mg (65 mg 324 mg PO DAILY 05/12/19 04/27/24 03/04/24 History iron) tablet,delayed release folic acid 1 mg tablet 1 mg PO DAILY 05/12/19 04/27/24 03/04/24 History gabapentin 300 mg capsule 300 mg PO TID 05/12/19 04/27/24 03/04/24 History hydrochlorothiazide 25 mg tablet 25 mg PO DAILY 05/12/19 04/27/24 03/04/24 History methotrexate sodium 2.5 mg tablet 2.5 mg PO WEEKLY 05/12/19 04/27/24 03/04/24 History multivitamin 1 tablet PO DAILY 05/12/19 04/27/24 03/04/24 History prednisone 5 mg tablet 10 mg PO BID 05/12/19 04/27/24 03/04/24 History carboxymethylcellulose 0.5 1 drp ophthalmic (eye) BID 06/01/19 04/27/24 03/04/24 History %-glycerin 0.9 % eye drops (Refresh Optive) glucosamine sulfate 500 mg tablet 500 mg PO DAILY 06/01/19 04/27/24 03/04/24 History (Glucosamine) icosapent ethyl 1 gram capsule 2 g PO BID 06/01/19 04/27/24 03/04/24 History (Vascepa) magnesium citrate 100 mg tablet 100 mg PO EVERY OTHER DAY 06/01/19 04/27/24 03/04/24 History vit C,E,zinc,copper-olfcp7a 250 1 cap PO EVERY OTHER DAY 06/01/19 04/27/24 03/04/24 History mg-lutein 5 mg-zeaxanthin 1 mg capsule (Ocuvite Adult 50 Plus) celecoxib 200 mg capsule (Celebrex) 200 mg PO BID 12/22/20 04/27/24 03/04/24 History cholecalciferol (vitamin D3) 10 10 mcg PO DAILY 11/07/23 04/27/24 03/04/24 History mcg (400 unit) capsule (Vitamin D3) golimumab 12.5 mg/mL intravenous See Rx Instructions .Route .COMPLEX 11/07/23 04/27/24 04/04/24 History solution (Simponi ARIA) turmeric 1,000 mg PO DAILY 11/07/23 04/27/24 03/04/24 History potassium 99 mg tablet 49.5 mg PO BID 04/27/24 04/27/24 Unknown History <Allan East PA-C - Last Filed: 04/27/24 01:12> Allergies/Adverse reactions: Allergies Allergy/AdvReac Type Severity Reaction Status Date / Time tuberculin, purified protein Allergy Mild Unknown Verified 04/26/24 23:14 deriva hydroxychloroquine Allergy Unknown vision Verified 04/26/24 23:14 changes <Allan East PA-C - Last Filed: 04/27/24 01:12> Review of Systems 2 Review of Systems: All systems as dictated in HPI <Allan East PA-C - Last Filed: 04/27/24 01:12> [facility] Past Medical History Medical History: Medical History Erosive esophagitis Dysphagia GERD (gastroesophageal reflux disease) Dilated aortic root Osteopenia History of retinal detachment right eye Impaired fasting glucose Leukocytosis Enterococcus UTI History of gastroesophageal reflux (GERD) Chronic prostatitis Essential (primary) hypertension Left retinal detachment Mixed hyperlipidemia Rheumatoid arthritis, unspecified <Allan East PA-C Last Filed: 04/27/24 01:12> Surgical History Surgical History: Surgical History History of detached retina repair right eye History of tonsillectomy <Allan East PA-C - Last Filed: 04/27/24 01:12> Family History Family History: Family History Mother Hypertension Cerebrovascular accident Father Patient's father is in good health Acute myocardial infarction Sibling No problems noted. <Allan East PA-C Last Filed: 04/27/24 01:12> Social History Social History: Social History Smoking status: Never smoker Second hand tobacco smoke exposure: No Alcohol intake: never Substance use: never Substance use type: does not use Do You Feel Safe in your Home?: Yes Lack of Transportation: No Lack of Food: Never True Current Housing: I Have Housing Concerned About Future Housing: No Difficulty Paying Gas/Electric Bills: No Difficulty Paying for Meds: No Currently Unemployed: No Education: Master's Degree or Higher Difficulty w/ Childcare or Family Care: No Living arrangements: with family Occupation/Education: retired Gender identity (if verbalized by the patient): Male Spiritual care concerns: No Agree to blood products: Yes <Allan East PA-C - Last Filed: 04/27/24 01:12> Exam 2 Narrative: GENERAL: No acute distress. Does appear slightly diaphoretic HEAD: Normocephalic, atraumatic. EYES: PERRLA and EOMI. ENT: Nares clear, no rhinorrhea or epistaxis. Mucous membranes moist. Oropharynx without tonsillar hypertrophy exudate or other lesions. NECK: Supple. No adenopathy or masses. CHEST: No respiratory distress. Clear to auscultation. No wheezes rales or rhonchi HEART: Regular rate and rhythm. No murmur heard. Normal peripheral pulses. ABDOMEN: Mild suprapubic tenderness. Negative left flank right flank tenderness. Soft, otherwise nontender, nondistended, normal active bowel sounds. MSK: Normal range of motion. No edema. SKIN: Warm, dry, no rash. NEURO: Alert and oriented x4. No focal deficits. PSYCH: Normal mood and affect. <Allan East PA-C - Last Filed: 04/27/24 01:12> Course CANDY MAKER/PA Physician Supervision For this patient encounter, I reviewed the CANDY MAKER or PA documentation, treatment plan, and medical decision making; and I had [id number] time with this patient. <Chip Acosta MD - Last Filed: 05/09/24 23:35> Vital Signs Vital signs: Vital Signs Temperature 99.1 F 04/26/24 17:25 Pulse Rate 127 H 04/26/24 17:25 Respiratory Rate 15 04/26/24 17:25 Blood Pressure 120/58 L 04/26/24 17:25 Pulse Oximetry 98 04/26/24 17:25 Oxygen Delivery Room Air 04/26/24 17:25 Temperature 97.6 F 05/01/24 05:39 Pulse Rate 63 05/01/24 05:39 Respiratory Rate 16 05/01/24 05:39 Blood Pressure 157/88 H 05/01/24 05:39 Pulse Oximetry 99 05/01/24 05:39 Oxygen Delivery Room Air 04/30/24 20:00 <Allan East PA-C - Last Filed: 04/27/24 01:12> Vital Signs Temperature 99.1 F 04/26/24 17:25 Pulse Rate 127 H 04/26/24 17:25 Respiratory Rate 15 04/26/24 17:25 Blood Pressure 120/58 L 04/26/24 17:25 Pulse Oximetry 98 04/26/24 17:25 Oxygen Delivery Room Air 04/26/24 17:25 Temperature 97.6 F 05/01/24 05:39 Pulse Rate 63 05/01/24 05:39 Respiratory Rate 16 05/01/24 05:39 Blood Pressure 157/88 H 05/01/24 05:39 Pulse Oximetry 99 05/01/24 05:39 Oxygen Delivery Room Air 04/30/24 20:00 <Chip Acosta MD - Last Filed: 05/09/24 23:35> MDM - Male Genitourinary MDM Narrative Medical decision making narrative: This is a 63-year-old male who presents to the ED for chief complaint of urinary retention and abdominal pain. Vitals show tachycardia and mildly elevated temperature but stable blood pressure. Exam remarkable for the above with suprapubic tenderness. Roper catheter is placed due to urinary retention. [place] [address]. Stable hemoglobin. CMP shows mildly elevated bilirubin of 1.9. CRP is quite elevated at 19.8. UA shows high specific gravity with nitrite positive urine, culture pending. Will lactate is normal. Blood cultures have been drawn. Chest x-ray: IMPRESSION: Left basilar atelectasis versus pneumonia.. CT abdomen and pelvis with IV contrast: IMPRESSION: 1. Tiny stone in the right kidney lower pole. 2. Constipation 3. Enlarged prostate. Thickened wall of the urinary bladder which may indicate cystitis. 4. Right fat-containing small inguinal hernia. 5. Soft tissue density in the left side of the pelvis which may be a lymph nodes. Follow-up advised. 6. Small sliding hiatus hernia. Patient was started on sepsis bolus fluids, Rocephin and meropenem for cystitis versus prostatitis. Spoke with Urology about this case. Dr. Underwood will consult on the patient and is fine with them being admitted to the medical team. Discussed the case with hospitalist who will admit the patient to IMU. Patient is understanding and agreeable with plan for admission. <Allan East PA-C - Last Filed: 04/27/24 01:12> Lab Data Result diagrams: 05/01/24 06:34 04/29/24 06:49 <Allan East PA-C - Last Filed: 04/27/24 01:12> Labs: Lab Results 04/26/24 04/26/24 04/26/24 Range/Units 17:50 18:53 19:35 WBC 21.2 H (4.5-10.0) K/mm3 RBC 4.02 L (4.6-6.20) M/mm3 Hgb 12.5 L (14.0-18.0) g/dL Hct 36.7 L (42.0-52.0) % MCV 91.3 (80-100) fl MCH 31.1 (26-34) pg MCHC 34.1 (32-36) g/dl RDW 13.8 (11.5-14.5) % Plt Count 116 L (150-375) k/mm3 MPV 10.2 (7.4-10.4) fl Immature Gran % (Auto) 0.8 H (0-0.5) % Neut % (Auto) 79.8 H (45.5-73.1) % Lymph % (Auto) 14.2 L (18.3-44.2) % [place] % (Auto) 4.9 (2.6-8.5) % Eos % (Auto) 0.1 (0-4.4) % Baso % (Auto) 0.2 (0.2-1.2) % Lymph # (Auto) 3.00 (0.9-3.2) K/mm3 [place] # (Auto) 1.0 H (0.1-0.6) K/mm3 Eos # (Auto) 0.0 (0-0.3) K/mm3 Baso # (Auto) 0.0 (0.0-0.1) K/mm3 Abs Immat Gran (auto) 0.18 H (0.00-0.031) K/mm3 Absolute Neuts (auto) 16.9 H (1.3-6.7) K/mm3 Absolute Nucleated RBC 0.000 (0.0-0.012) K/mm3 Nucleated RBC % 0.0 (0.0-0.2) % PT 14.9 H (11.1-14.7) Seconds INR 1.1 APTT 32.6 (22.3-36.8) Seconds Sodium 125 L (137-145) mmol/L Potassium 3.7 (3.4-5.0) mmol/L Chloride 95 L (98-107) mmol/L Carbon Dioxide 28 (22-30) mmol/L Anion Gap 2 L (4-12) mmol/L BUN 18 (9-20) mg/dL Creatinine 1.20 (0.7-1.3) mg/dL Estim Creat Clear Calc 70 ml/min Estimated GFR > 60 (59 - ) Glucose 99 (65-110) mg/dL Lactic Acid 1.6 (0.7-2.0) mmol/L Calcium 8.6 (8.4-10.2) mg/dL Total Bilirubin 1.9 H (0.2-1.3) mg/dL AST 24 (17-59) U/L ALT 16 (6-50) U/L Alkaline Phosphatase 68 (38-126) U/L C-Reactive Protein 19.8 H (<1.0) mg/dL Total Protein 7.0 (6.3-8.2) g/dL Albumin 3.8 (3.5-5.1) g/dL Lipase 59 (23-300) U/L Urine Color Yellow (Yellow) Urine Appearance Clear (Clear) Urine pH 7.0 (5.0-9.0) Ur Specific [place] > 1.045 H (1.001-1.035) Urine Protein Trace (Negative) mg/dL Urine Glucose (UA) Negative (Negative) mg/dL Urine Ketones Negative (Negative) mg/dL Ur Blood (Man) Non-hemolyzed trace (Negative) Urine Nitrate Positive H (Negative) Urine Bilirubin Negative (Negative) Urine Urobilinogen 0.2 (<2.0) mg/dL Leukocyte Esterase Rfl 2+ H (Negative) FERNANDEZ/UL Urine RBC 3-5 H (0-2) /hpf Urine WBC >100 H (0-3) /hpf Ur Squamous Epith Cells None seen (Few) /hpf Urine Bacteria 4+ H /hpf Urine Casts 0-2 <Allan East PA-C - Last Filed: 04/27/24 01:12> Lab Results 04/26/24 04/26/24 04/26/24 Range/Units 17:50 18:53 19:35 WBC 21.2 H (4.5-10.0) K/mm3 RBC 4.02 L (4.6-6.20) M/mm3 Hgb 12.5 L (14.0-18.0) g/dL Hct 36.7 L (42.0-52.0) % MCV 91.3 (80-100) fl MCH 31.1 (26-34) pg MCHC 34.1 (32-36) g/dl RDW 13.8 (11.5-14.5) % Plt Count 116 L (150-375) k/mm3 MPV 10.2 (7.4-10.4) fl Immature Gran % (Auto) 0.8 H (0-0.5) % Neut % (Auto) 79.8 H (45.5-73.1) % Lymph % (Auto) 14.2 L (18.3-44.2) % [place] % (Auto) 4.9 (2.6-8.5) % Eos % (Auto) 0.1 (0-4.4) % Baso % (Auto) 0.2 (0.2-1.2) % Lymph # (Auto) 3.00 (0.9-3.2) K/mm3 [place] # (Auto) 1.0 H (0.1-0.6) K/mm3 Eos # (Auto) 0.0 (0-0.3) K/mm3 Baso # (Auto) 0.0 (0.0-0.1) K/mm3 Abs Immat Gran (auto) 0.18 H (0.00-0.031) K/mm3 Absolute Neuts (auto) 16.9 H (1.3-6.7) K/mm3 Absolute Nucleated RBC 0.000 (0.0-0.012) K/mm3 Nucleated RBC % 0.0 (0.0-0.2) % PT 14.9 H (11.1-14.7) Seconds INR 1.1 APTT 32.6 (22.3-36.8) Seconds Sodium 125 L (137-145) mmol/L Potassium 3.7 (3.4-5.0) mmol/L Chloride 95 L (98-107) mmol/L Carbon Dioxide 28 (22-30) mmol/L Anion Gap 2 L (4-12) mmol/L BUN 18 (9-20) mg/dL Creatinine 1.20 (0.7-1.3) mg/dL Estim Creat Clear Calc 70 ml/min Estimated GFR > 60 (59 - ) Glucose 99 (65-110) mg/dL Lactic Acid 1.6 (0.7-2.0) mmol/L Calcium 8.6 (8.4-10.2) mg/dL Total Bilirubin 1.9 H (0.2-1.3) mg/dL AST 24 (17-59) U/L ALT 16 (6-50) U/L Alkaline Phosphatase 68 (38-126) U/L C-Reactive Protein 19.8 H (<1.0) mg/dL Total Protein 7.0 (6.3-8.2) g/dL Albumin 3.8 (3.5-5.1) g/dL Lipase 59 (23-300) U/L Urine Color Yellow (Yellow) Urine Appearance Clear (Clear) Urine pH 7.0 (5.0-9.0) Ur Specific [place] > 1.045 H (1.001-1.035) Urine Protein Trace (Negative) mg/dL Urine Glucose (UA) Negative (Negative) mg/dL Urine Ketones Negative (Negative) mg/dL Ur Blood (Man) Non-hemolyzed trace (Negative) Urine Nitrate Positive H (Negative) Urine Bilirubin Negative (Negative) Urine Urobilinogen 0.2 (<2.0) mg/dL Leukocyte Esterase Rfl 2+ H (Negative) FERNANDEZ/UL Urine RBC 3-5 H (0-2) /hpf Urine WBC >100 H (0-3) /hpf Ur Squamous Epith Cells None seen (Few) /hpf Urine Bacteria 4+ H /hpf Urine Casts 0-2 <Chip Acosta MD - Last Filed: 05/09/24 23:35> ECG Data EKG #1: ECG completion date: 04/26/24 <Allan East PA-C - Last Filed: 04/27/24 01:12> ECG completion time: 19:25 <Allan East PA-C - Last Filed: 04/27/24 01:12> Prior ECG tracings: available for review <STEFANIA Lr Last Filed: 04/27/24 01:12> Interpretation: Sinus tachycardia Rate 100 Normal QRS Normal QTC No acute ischemic findings <Allan East PA-C - Last Filed: 04/27/24 01:12> Discharge Plan Discharge Clinical Impression: Urinary tract infection, Sepsis Prostatitis Qualifiers: Prostatitis type: chronic Qualified Code(s): N41.1 - Chronic prostatitis <STEFANIA Lr Last Filed: 04/27/24 01:12> Patient Disposition: Still a Patient <Allan East PA-C - Last Filed: 04/27/24 01:12> Condition: Stable <STEFANIA Lr Last Filed: 04/27/24 01:12>
--- NOTE | 2024-04-26 18:13 | PC.NURSE ---
0mL on bladder scan. SUN cooper at bedside and aware.
--- NOTE | 2024-04-26 18:17 | ECG_ITS ---
Test Date: 2024-04-26 19:25:35 Measurements Intervals [place] Rate: 100 P: 16 MI: 147 QRS: -14 QRSD: 100 T: 10 QT: 332 QTc: 429 Interpretive Statements SINUS TACHYCARDIA MODERATE VOLTAGE CRITERIA FOR LVH, CONSIDER NORMAL VARIANT [MEETS CRITERIA IN ONE OF: R(aVL), S(V1), R(V5), R(V5/V6)+S(V1)] ABNORMAL ECG Electronically Signed On 04-27-2024 08:57:33 [employer] by Bobby Lechuga M.D.
[2024-04-26] MEDS: LACTATED RINGERS 1,000 ML 999 ML IV CONT ×3 (18:47→21:54)
[2024-04-26 18:48] LABS: Lipase 59 U/L (23-300)
[2024-04-26] MEDS: HYDROmorphone HCL INJ (*CRX) 1 MG/ML SYR 0.5 MG IV PUSH ×2 (18:48→21:54)
[2024-04-26] MEDS: ONDANSETRON INJ 4 MG/2 ML VIAL IV PUSH ×2 (18:48→21:54)
[2024-04-26 18:49] LABS: INR 1.1; Prothrombin Time 14.9 Seconds (11.1-14.7)
[2024-04-26 18:51] LABS: Partial Thromboplastin Time 32.6 Seconds (22.3-36.8)
[2024-04-26 18:52] LABS: CRP 19.8 mg/dL (<1.0)
[2024-04-26 19:22] LABS: Lactic Acid Reflex 1.6 mmol/L (0.7-2.0)
[2024-04-26] MEDS: MEROPENEM 1 GM/NS 100 ML 1 GM/100 ML BAG IVPB (19:39)
[2024-04-26 20:06] LABS: Add Urine Microscopic? YES; Appearance Urine Clear (Clear); Bacteria Urine 4+ /hpf; Bilirubin Urine Negative (Negative); Blood Urine Non-Hemolyzed Trace (Negative); Color Urine Yellow (Yellow); Glucose Urine UA Negative (Negative); Ketones Urine Negative (Negative); Leukocyte Esterase Ur 2+ LEU/UL (Negative); Nitrate Urine Positive (Negative); Non Pathogenic Casts 0-2; Protein Urine Trace mg/dL (Negative); Specific Grav Ur > 1.045 (1.001-1.035); Squamous Epithelial Cell Urine None Seen /hpf (Few); Urobilinogen Urine 0.2 mg/dL (<2.0); WBC Urine >100 /hpf (0-3)
--- NOTE | 2024-04-26 22:46 | P.HP_ITS ---
H&P: HPI History of Present Illness Date/Time: 04/26/24 22:46 Chief Complaint: Chills Narrative: This is a 63-year-old male with past medical history significant for are a, obstructive sleep apnea, dyslipidemia, hypertension, GERD, impaired fasting glucose tolerance, chronic prostatitis. Patient presents to the emergency room due to 2-3 days of generalized malaise, chills, lower abdomen pain. Today had urinary retention. Preliminary workup was significant for urinalysis with numerous WBCs present, chest x-ray showed infiltrate. Patient has been admitted for further evaluation management and treatment. CT abdomen pelvis w con Ordering provider: Allan East PA-C History: 63 years Male with . suprapubic pain, nausea/vomiting . Comparison: None. Technique: CT abdomen and pelvis with IV and without oral contrast. Automated exposure control and iterative reconstruction technique were employed. The dose- length product was 1237.72 mGy-cm. 100 mL Omnipaque 350 was given IV. Findings: VISUALIZED LOWER CHEST: Bilateral dependent atelectatic changes posteriorly. Possible focal area of atelectasis in the right middle lobe. Trace of pericardial effusion. UPPER ABDOMINAL ORGANS: Liver: Normal. Gallbladder: Normal. Spleen: Normal. Stomach/duodenum: Small sliding hiatus hernia. Pancreas: Normal. Adrenals: Normal. Kidneys: Tiny stone in the right kidney lower pole. PELVIC ORGANS: The bladder is underfilled with thickened wall. Evaluation for cystitis advised. Enlarged prostate. Small soft tissue density is seen in the left side of the pelvis which measures 2.5 cm. May be a lymph nodes. Follow-up advised. BOWEL AND MESENTERY: Colon: No evidence of diverticulitis. Postoperative changes seen in the inguinal area. Fecal material is loaded in the colon. Normal appendix. Small Bowel: Normal. No obstruction. Peritoneum/mesentery: No free air or free fluid. No mesenteric lymphadenopathy. RETROPERITONEUM: Mild atheromatous disease of the abdominal aorta. No retroperitoneal lymphadenopathy. MUSCULOSKELETAL: Superficial soft tissues: Small right fat-containing inguinal hernia. Otherwise, The superficial soft tissues are normal. Bones: Age appropriate degenerative changes of the spine. IMPRESSION: 1. Tiny stone in the right kidney lower pole. 2. Constipation 3. Enlarged prostate. Thickened wall of the urinary bladder which may indicate cystitis. 4. Right fat-containing small inguinal hernia. 5. Soft tissue density in the left side of the pelvis which may be a lymph nodes. Follow-up advised. 6. Small sliding hiatus hernia. XR chest 2V Ordering provider: Allan East PA-C History: 63 years Male with . sepsis abdominal pain . Comparison: June 01, 2019 FINDINGS: MEDIASTINUM: The cardiac silhouette is slightly enlarged. Congestive esmer. LUNGS: No effusions or pneumothorax. Minimal opacification the left lung base medially which may indicate atelectasis versus pneumonia. Follow-up and clinical correlation advised. OTHER: No free air under the diaphragm. Degenerative spine. IMPRESSION: Left basilar atelectasis versus pneumonia. Review of Systems Review of Systems: Chills, fevers, urinary retention PMFSH Past Medical History Medical History (Updated 04/27/24 @ 01:12 by Allan East PA-C) Erosive esophagitis Dysphagia GERD (gastroesophageal reflux disease) Dilated aortic root Osteopenia History of retinal detachment right eye Impaired fasting glucose Leukocytosis Enterococcus UTI History of gastroesophageal reflux (GERD) Chronic prostatitis Essential (primary) hypertension Left retinal detachment Mixed hyperlipidemia Rheumatoid arthritis, unspecified Surgical History Surgical History History of detached retina repair right eye History of tonsillectomy Family History Family History (Updated 04/26/24 @ 23:30 by Lexi Yarbrough RN) Mother Hypertension Cerebrovascular accident Father Patient's father is in good health Acute myocardial infarction Sibling No problems noted. Social History Social History Smoking status: Never smoker Second hand tobacco smoke exposure: No Alcohol intake: never Substance use: never Substance use type: does not use Do You Feel Safe in your Home?: Yes Lack of Transportation: No Lack of Food: Never True Current Housing: I Have Housing Concerned About Future Housing: No Difficulty Paying Gas/Electric Bills: No Difficulty Paying for Meds: No Currently Unemployed: No Education: Master's Degree or Higher Difficulty w/ Childcare or Family Care: No Living arrangements: with family Occupation/Education: retired Gender identity (if verbalized by the patient): Male Spiritual care concerns: No Agree to blood products: Yes Meds Home Medications and Allergies Home Medications ?Medication ?Instructions ?Recorded ?Confirmed ?Type atorvastatin 40 mg tablet 40 mg PO HS 05/12/19 04/27/24 History bupropion HCl 100 mg tablet 100 mg PO .q12 05/12/19 04/27/24 History carvedilol 12.5 mg tablet (Coreg) 12.5 mg PO Q12H 05/12/19 04/27/24 History ferrous sulfate 324 mg (65 mg 324 mg PO DAILY 05/12/19 04/27/24 History iron) tablet,delayed release folic acid 1 mg tablet 1 mg PO DAILY 05/12/19 04/27/24 History gabapentin 300 mg capsule 300 mg PO TID 05/12/19 04/27/24 History hydrochlorothiazide 25 mg tablet 25 mg PO DAILY 05/12/19 04/27/24 History methotrexate sodium 2.5 mg tablet 2.5 mg PO WEEKLY 05/12/19 04/27/24 History multivitamin 1 tablet PO DAILY 05/12/19 04/27/24 History prednisone 5 mg tablet 10 mg PO BID 05/12/19 04/27/24 History carboxymethylcellulose 0.5 1 drp ophthalmic (eye) BID 06/01/19 04/27/24 History %-glycerin 0.9 % eye drops (Refresh Optive) glucosamine sulfate 500 mg tablet 500 mg PO DAILY 06/01/19 04/27/24 History (Glucosamine) icosapent ethyl 1 gram capsule 2 g PO BID 06/01/19 04/27/24 History (Vascepa) magnesium citrate 100 mg tablet 100 mg PO EVERY OTHER DAY 06/01/19 04/27/24 History vit C,E,zinc,copper-pnlsx7s 250 1 cap PO EVERY OTHER DAY 06/01/19 04/27/24 History mg-lutein 5 mg-zeaxanthin 1 mg capsule (Ocuvite Adult 50 Plus) tizanidine 4 mg tablet 4 mg PO .qhs . #90 tabs 11/24/19 04/27/24 Rx metaxalone 800 mg tablet (Skelaxin) 800 mg PO TID PRN muscle pain #10 12/03/19 04/27/24 Rx tabs celecoxib 200 mg capsule (Celebrex) 200 mg PO BID 12/22/20 04/27/24 History cetirizine 10 mg tablet (Zyrtec) 10 mg PO DAILY #90 tabs 03/21/23 04/27/24 Rx aspirin 81 mg tablet,delayed 81 mg PO DAILY #90 tabs 07/05/23 04/27/24 Rx release cholecalciferol (vitamin D3) 10 10 mcg PO DAILY 11/07/23 04/27/24 History mcg (400 unit) capsule (Vitamin D3) golimumab 12.5 mg/mL intravenous See Rx Instructions .Route .COMPLEX 11/07/23 04/27/24 History solution (Simponi ARIA) turmeric 1,000 mg PO DAILY 11/07/23 04/27/24 History pantoprazole 40 mg tablet,delayed 40 mg PO BID #180 tabs 11/08/23 04/27/24 Rx release potassium 99 mg tablet 49.5 mg PO BID 04/27/24 04/27/24 History Allergies Allergy/AdvReac Type Severity Reaction Status Date / Time tuberculin, purified protein Allergy Mild Unknown Verified 04/26/24 23:14 deriva hydroxychloroquine Allergy Unknown vision Verified 04/26/24 23:14 changes Vital Signs Vital Signs - 24 hr 04/26/24 17:25 04/26/24 18:05 04/26/24 18:53 Temperature 99.1 F Pulse Rate 127 H 101 H 102 H Respiratory Rate 15 16 14 Blood Pressure 120/58 L 114/64 103/69 Pulse Oximetry 98 96 94 Oxygen Delivery Room Air 04/26/24 20:49 04/26/24 22:36 Temperature 99.2 F Pulse Rate 92 109 H Respiratory Rate 15 15 Blood Pressure 105/61 119/59 L Pulse Oximetry 98 96 Oxygen Delivery Exam Narrative: Laying in a stretcher Const: General: comfortable, no acute distress, well developed, alert, awake, ill appearing acutely, tired appearing and average body habitus Nutritional Appearance: average body habitus Orientation/consciousness: patient oriented x3 HENMT: Head: normal to inspection, normocephalic and atraumatic Ears: hearing grossly normal bilaterally Face/Nose/Sinus: normal facial exam Face and sinus: normal facial exam Eyes: General: appearance normal, both eyes and all related structures Pupils: Equal, round and reactive pupils present EOM: EOMs intact bilaterally Neck: Neck: full ROM, no lymphadenopathy and no JVD Thyroid: thyroid normal Lymphatic: no lymphadenopathy noted Resp: Effort & Inspection: normal respiratory effort and able to speak in complete sentences Auscultation: clear to auscultation bilaterally Cardio: Jugular venous distension: no JVD Rate: regular rate Rhythm: regular rhythm Heart sounds: S1 normal heart sound present and S2 normal heart sound present GI: GI Palp: Yes Soft to palpation and Yes No hepatosplenomegaly present : General: Yes deferred Skin: Rashes: no rashes Wounds: no wounds Neuro: General: patient oriented x3 and CN's II-XI intact bilaterally Cranial nerves: Yes CN's II-XII intact bilaterally and Yes Equal, round and reactive pupils present Cognition (Neuro): normal cognition Speech: normal speech Gait exam (Neuro): Unable to assess gait Motor exam (neuro): 5/5 motor strength present throughout Extrem: General: normal to inspection, full ROM, no joint enlargement and no pedal edema H&P: Results Labs Labs: Short CBC 04/26/24 Range/Units 17:50 WBC 21.2 H (4.5-10.0) K/mm3 Hgb 12.5 L (14.0-18.0) g/dL Hct 36.7 L (42.0-52.0) % Plt Count 116 L (150-375) k/mm3 BMP 04/26/24 17:50 Sodium 125 L Potassium 3.7 Chloride 95 L Carbon Dioxide 28 BUN 18 Creatinine 1.20 Glucose 99 Calcium 8.6 Liver Function 04/26/24 Range/Units 17:50 Total Bilirubin 1.9 H (0.2-1.3) mg/dL AST 24 (17-59) U/L ALT 16 (6-50) U/L Alkaline Phosphatase 68 (38-126) U/L Albumin 3.8 (3.5-5.1) g/dL Urine 04/26/24 Range/Units 19:35 Urine Color Yellow (Yellow) Urine Appearance Clear (Clear) Urine pH 7.0 (5.0-9.0) Ur Specific [place] > 1.045 H (1.001-1.035) Urine Protein Trace (Negative) mg/dL Urine Glucose (UA) Negative (Negative) mg/dL Assessment and Plan Assessment and plan (1) Sepsis: Code(s): A41.9 - Sepsis, unspecified organism Status: Acute Assessment and Plan: Admit to IMU Likely secondary to prostatitis (2) Prostatitis: Qualifiers: Prostatitis type: chronic Qualified Code(s): N41.1 - Chronic prostatitis Code(s): N41.9 - Inflammatory disease of prostate, unspecified Status: Acute Assessment and Plan: Currently on Merrem Urology consult (3) Urinary tract infection: Code(s): N39.0 - Urinary tract infection, site not specified Status: Acute Assessment and Plan: Patient started on Merrem Await cultures (4) Rheumatoid arthritis, unspecified: Code(s): M06.9 - Rheumatoid arthritis, unspecified Status: Acute Assessment and Plan: Continue methotrexate Continue prednisone Patient receives symphony infusions every 2 months (5) PRASHANTH (obstructive sleep apnea): Code(s): G47.33 - Obstructive sleep apnea (adult) (pediatric) Status: Acute Assessment and Plan: CPAP at nighttime (6) Essential (primary) hypertension: Code(s): I10 - Essential (primary) hypertension Status: Acute Assessment and Plan: Restart as needed (7) GERD (gastroesophageal reflux disease): Code(s): K21.9 - Gastro-esophageal reflux disease without esophagitis Status: Acute Assessment and Plan: PPI Hospitalist [facility] Advance Care Plan I have confirmed that the patient's Advanced Care Plan is present, code status is documented, or surrogate decision maker is listed in patient medical record.: Yes Medication Reconciliation I have utilized all available resources to obtain, update and review the patients current medications (includes all prescriptions, OTC, herbals, cannabis, and nutritional supplements).: Yes
[2024-04-26] MEDS: HYDROmorphone HCL INJ (*CRX) 1 MG/ML SYR IV PUSH (22:47)
--- NOTE | 2024-04-26 22:55 | ADMGEN ---
This patient, Chalino Deng, was admitted to IMU Room 210-01. Patient/family oriented to hospital policies and general routines including ID bracelet, bed and alarms, visiting hours, pain management, procedures, bathroom and other care routines, personal items, smoking policy, room service/diet, and visiting hours. Patient/Family are encouraged to report perceived risks to care and to ask questions if they do not understand what they are told or what they should do.
[2024-04-26] MEDS: SODIUM CHLORIDE 0.9% IV 1,000 ML 125 ML IV CONT (23:06)
[2024-04-27] VITALS (17 sets, daily range): BP systolic 91–116; BP diastolic 54–66; PULSE 76–135; RESP 12–23; TEMP 36.3–39.4; O2SAT 98–99
[2024-04-27] MEDS: ONDANSETRON INJ 4 MG/2 ML VIAL IV PUSH (02:07)
[2024-04-27] MEDS: IBUPROFEN IV 800 MG/200 ML 800 MG/200 ML BAG 400 MG IVPB ×2 (03:41→21:46)
[2024-04-27] MEDS: dexAMETHasone SOD PHOS INJ 10 MG/ML 1 ML VIAL 6 MG IV PUSH (03:42)
[2024-04-27] MEDS: HYDROmorphone HCL INJ (*CRX) 1 MG/ML SYR 0.5 MG IV PUSH ×2 (03:43→16:28)
[2024-04-27] MEDS: MEROPENEM 500 MG/NS 100 ML 500 MG/100 ML BAG 200 MG IVPB ×3 (05:04→22:16)
[2024-04-27] MEDS: SODIUM CHLORIDE 0.9% IV 1,000 ML 125 ML IV CONT ×2 (08:21→16:31)
--- NOTE | 2024-04-27 08:22 | P.CONUR_ITS ---
Assessment and Plan Assessment and plan (1) Acute prostatitis: Code(s): N41.0 - Acute prostatitis Status: Acute Assessment and Plan: * Agree with dose of ceftriaxone given in the emergency department followed by meropenem. * Recommend leaving catheter in until just prior to discharge. He should have a voiding trial prior to discharge. * Continue meropenem pending cultures. Urology Consult Note HPI Date Seen: 04/27/24 Requesting Physician: Ce Jernigan MD Primary Care Provider: Tomas Hyman MD Consult Narrative Narrative: Chalino Deng is a 63 year old male known to Dr. Art with a history of BPH, last seen in October 2023. Presents to the emergency department with signs and symptoms of acute prostatitis. Specifically, he reports 2 days of generalized malaise, arthralgias/myalgias, chilling, marked irritable voiding and a sense of incomplete bladder emptying. CT scan abdomen/pelvis shows inflammation around the bladder without other significant urological findings. A Roper catheter was placed in the emergency department without difficulty and he was started on IV antibiotics. Review of Systems 2 Review of Systems: All systems reviewed & are unremarkable except as noted in HPI and below PMFSH Past Medical History Medical History (Updated 04/27/24 @ 08:24 by Lloyd Underwood MD) Erosive esophagitis Dysphagia GERD (gastroesophageal reflux disease) Dilated aortic root Osteopenia History of retinal detachment right eye Impaired fasting glucose Leukocytosis Enterococcus UTI History of gastroesophageal reflux (GERD) Chronic prostatitis Essential (primary) hypertension Left retinal detachment Mixed hyperlipidemia Rheumatoid arthritis, unspecified Surgical History Surgical History History of detached retina repair right eye History of tonsillectomy Family History Family History (Updated 04/26/24 @ 23:30 by Lexi Yarbrough RN) Mother Hypertension Cerebrovascular accident Father Patient's father is in good health Acute myocardial infarction Sibling No problems noted. Social History Social History Smoking status: Never smoker Second hand tobacco smoke exposure: No Alcohol intake: never Substance use: never Substance use type: does not use Do You Feel Safe in your Home?: Yes Lack of Transportation: No Lack of Food: Never True Current Housing: I Have Housing Concerned About Future Housing: No Difficulty Paying Gas/Electric Bills: No Difficulty Paying for Meds: No Currently Unemployed: No Education: Master's Degree or Higher Difficulty w/ Childcare or Family Care: No Living arrangements: with family Occupation/Education: retired Gender identity (if verbalized by the patient): Male Spiritual care concerns: No Agree to blood products: Yes Meds Home Medications and Allergies Home Medications ?Medication ?Instructions ?Recorded ?Confirmed ?Type atorvastatin 40 mg tablet 40 mg PO HS 05/12/19 04/27/24 History bupropion HCl 100 mg tablet 100 mg PO .q12 05/12/19 04/27/24 History carvedilol 12.5 mg tablet (Coreg) 12.5 mg PO Q12H 05/12/19 04/27/24 History ferrous sulfate 324 mg (65 mg 324 mg PO DAILY 05/12/19 04/27/24 History iron) tablet,delayed release folic acid 1 mg tablet 1 mg PO DAILY 05/12/19 04/27/24 History gabapentin 300 mg capsule 300 mg PO TID 05/12/19 04/27/24 History hydrochlorothiazide 25 mg tablet 25 mg PO DAILY 05/12/19 04/27/24 History methotrexate sodium 2.5 mg tablet 2.5 mg PO WEEKLY 05/12/19 04/27/24 History multivitamin 1 tablet PO DAILY 05/12/19 04/27/24 History prednisone 5 mg tablet 10 mg PO BID 05/12/19 04/27/24 History carboxymethylcellulose 0.5 1 drp ophthalmic (eye) BID 06/01/19 04/27/24 History %-glycerin 0.9 % eye drops (Refresh Optive) glucosamine sulfate 500 mg tablet 500 mg PO DAILY 06/01/19 04/27/24 History (Glucosamine) icosapent ethyl 1 gram capsule 2 g PO BID 06/01/19 04/27/24 History (Vascepa) magnesium citrate 100 mg tablet 100 mg PO EVERY OTHER DAY 06/01/19 04/27/24 History vit C,E,zinc,copper-geplw6o 250 1 cap PO EVERY OTHER DAY 06/01/19 04/27/24 History mg-lutein 5 mg-zeaxanthin 1 mg capsule (Ocuvite Adult 50 Plus) tizanidine 4 mg tablet 4 mg PO .qhs . #90 tabs 11/24/19 04/27/24 Rx metaxalone 800 mg tablet (Skelaxin) 800 mg PO TID PRN muscle pain #10 12/03/19 04/27/24 Rx tabs celecoxib 200 mg capsule (Celebrex) 200 mg PO BID 12/22/20 04/27/24 History cetirizine 10 mg tablet (Zyrtec) 10 mg PO DAILY #90 tabs 03/21/23 04/27/24 Rx aspirin 81 mg tablet,delayed 81 mg PO DAILY #90 tabs 07/05/23 04/27/24 Rx release cholecalciferol (vitamin D3) 10 10 mcg PO DAILY 11/07/23 04/27/24 History mcg (400 unit) capsule (Vitamin D3) golimumab 12.5 mg/mL intravenous See Rx Instructions .Route .COMPLEX 11/07/23 04/27/24 History solution (Simponi ARIA) turmeric 1,000 mg PO DAILY 11/07/23 04/27/24 History pantoprazole 40 mg tablet,delayed 40 mg PO BID #180 tabs 11/08/23 04/27/24 Rx release potassium 99 mg tablet 49.5 mg PO BID 04/27/24 04/27/24 History Allergies Allergy/AdvReac Type Severity Reaction Status Date / Time tuberculin, purified protein Allergy Mild Unknown Verified 04/26/24 23:14 deriva hydroxychloroquine Allergy Unknown vision Verified 04/26/24 23:14 changes Vital Signs Vital Signs - 24 hr 04/26/24 17:25 04/26/24 18:05 04/26/24 18:53 Temperature 99.1 F Pulse Rate 127 H 101 H 102 H Respiratory Rate 15 16 14 Blood Pressure 120/58 L 114/64 103/69 Pulse Oximetry 98 96 94 Oxygen Delivery Room Air 04/26/24 20:49 04/26/24 22:36 04/26/24 22:56 Temperature 99.2 F 100.5 F H Pulse Rate 92 109 H 112 H Respiratory Rate 15 15 22 H Blood Pressure 105/61 119/59 L 119/69 Pulse Oximetry 98 96 95 Oxygen Delivery 04/26/24 23:04 04/27/24 00:00 04/27/24 00:00 Temperature Pulse Rate 111 H 135 H Respiratory Rate Blood Pressure Pulse Oximetry Oxygen Delivery Room Air 04/27/24 02:00 04/27/24 03:09 04/27/24 03:41 Temperature 103.0 F H 103.0 F H Pulse Rate 132 H 133 H Respiratory Rate 23 H Blood Pressure 110/54 L Pulse Oximetry 99 Oxygen Delivery 04/27/24 04:00 04/27/24 04:00 04/27/24 04:40 Temperature 98.8 F Pulse Rate 134 H Respiratory Rate Blood Pressure Pulse Oximetry Oxygen Delivery Room Air 04/27/24 04:48 04/27/24 06:00 04/27/24 08:00 Temperature 98.8 F 97.8 F Pulse Rate 105 H 85 Respiratory Rate 12 Blood Pressure 91/64 L Pulse Oximetry 98 Oxygen Delivery Exam 2 Const: General: no acute distress Resp: Effort & Inspection: normal respiratory effort GI: Inspection: non-distended GI Palp: No abdominal tenderness and No Guarding due to palpation present (GI) Auscultation: normal bowel sounds Results Labs 04/26/24 17:50 04/26/24 17:50 Labs: Short CBC 04/26/24 Range/Units 17:50 WBC 21.2 H (4.5-10.0) K/mm3 Hgb 12.5 L (14.0-18.0) g/dL Hct 36.7 L (42.0-52.0) % Plt Count 116 L (150-375) k/mm3 BMP 04/26/24 17:50 Sodium 125 L Potassium 3.7 Chloride 95 L Carbon Dioxide 28 BUN 18 Creatinine 1.20 Glucose 99 Calcium 8.6 Liver Function 04/26/24 Range/Units 17:50 Total Bilirubin 1.9 H (0.2-1.3) mg/dL AST 24 (17-59) U/L ALT 16 (6-50) U/L Alkaline Phosphatase 68 (38-126) U/L Albumin 3.8 (3.5-5.1) g/dL Urine 04/26/24 Range/Units 19:35 Urine Color Yellow (Yellow) Urine Appearance Clear (Clear) Urine pH 7.0 (5.0-9.0) Ur Specific [place] > 1.045 H (1.001-1.035) Urine Protein Trace (Negative) mg/dL Urine Glucose (UA) Negative (Negative) mg/dL
[2024-04-27 08:42] LABS: Basophils Absolute Auto 0.1 K/mm3 (0.0-0.1); Basophils Percent Auto 0.3 % (0.2-1.2); Eosinophils Absolute Auto 0.1 K/mm3 (0-0.3); Eosinophils Percent Auto 0.3 % (0-4.4); Hematocrit 34.9 % (42.0-52.0); Hemoglobin 11.7 g/dL (14.0-18.0); Immature Granulocyte Absolute 3.16 K/mm3 (0.00-0.031); Immature Granulocyte Percent A 11.7 % (0-0.5); Lymphocytes Absolute Auto 1.24 K/mm3 (0.9-3.2); Lymphocytes Percent Auto 4.6 % (18.3-44.2); Mean Corpuscular HGB Conc 33.5 g/dl (32-36); Mean Corpuscular Hemoglobin 31.3 pg (26-34); Mean Corpuscular Volume 93.3 fl (80-100); Mean Platelet Volume 10.1 fl (7.4-10.4); Monocytes Absolute Auto 1.6 K/mm3 (0.1-0.6); Monocytes Percent Auto 5.9 % (2.6-8.5); Neutrophils Percent Auto 77.2 % (45.5-73.1); Platelet Count Result 99 k/mm3 (150-375); Red Blood Count 3.74 M/mm3 (4.6-6.20); Red Cell Distribution Width 13.8 % (11.5-14.5); White Blood Count 27.1 K/mm3 (4.5-10.0)
[2024-04-27 08:50] LABS: Alanine Aminotransferase 16 U/L (6-50); Albumin Level 3.2 g/dL (3.5-5.1); Alkaline Phosphatase 70 U/L (38-126); Anion Gap 2 mmol/L (4-12); Aspartate Amino Transferase 23 U/L (17-59); Bilirubin,Total 0.9 mg/dL (0.2-1.3); Blood Urea Nitrogen 17 mg/dL (9-20); Calcium 8.2 mg/dL (8.4-10.2); Carbon Dioxide 26 mmol/L (22-30); Chloride 103 mmol/L (98-107); Estimated CRCL calculation 61 ml/min; Estimated Glomerular Filt Rate 52; Glucose 107 mg/dL (65-110); Magnesium 1.9 mg/dL (1.6-2.3); Potassium 3.7 mmol/L (3.4-5.0); Sodium 131 mmol/L (137-145)
--- NOTE | 2024-04-27 12:45 | P.PNIM_ITS ---
Progress Note: A&P Assessment and Plan (1) Sepsis: Code(s): A41.9 - Sepsis, unspecified organism Status: Acute Assessment and Plan: vital signs stable Likely secondary to prostatitis (2) Prostatitis: Qualifiers: Prostatitis type: chronic Qualified Code(s): N41.1 - Chronic prostatiti s Code(s): N41.9 - Inflammatory disease of prostate, unspecified Status: Acute Assessment and Plan: Currently on [facility] following f/u on urine culture (3) Urinary tract infection: Code(s): N39.0 - Urinary tract infection, site not specified Status: Acute Assessment and Plan: Patient started on Merrem Await cultures (4) Rheumatoid arthritis, unspecified: Code(s): M06.9 - Rheumatoid arthritis, unspecified Status: Acute Assessment and Plan: Continue methotrexate Continue prednisone Patient receives symphony infusions every 2 months (5) PRASHANTH (obstructive sleep apnea): Code(s): G47.33 - Obstructive sleep apnea (adult) (pediatric) Status: Acute Assessment and Plan: CPAP at nighttime (6) Essential (primary) hypertension: Code(s): I10 - Essential (primary) hypertension Status: Acute Assessment and Plan: Restart as needed (7) GERD (gastroesophageal reflux disease): Code(s): K21.9 - Gastro-esophageal reflux disease without esophagitis Status: Acute Assessment and Plan: PPI Plan DVT prophylaxis on Sq Lovenox Subjective Date/time seen: 04/27/24 12:45 Interval history: Patient comfortable at bedside Review of Systems Review of Systems: Chills, fevers, urinary retention Exam Narrative: Laying in a stretcher Const: General: comfortable, no acute distress, well developed, alert, awake, ill appearing acutely, tired appearing and average body habitus Nutritional Appearance: average body habitus Orientation/consciousness: patient oriented x3 HENMT: Head: normal to inspection, normocephalic and atraumatic Ears: he aring grossly normal bilaterally Face/Nose/Sinus: normal facial exam Face and sinus: normal facial exam Eyes: General: appearance normal, both eyes and all related structures Pupils: Equal, round and reactive pupils present EOM: EOMs intact bilaterally Neck: Neck: full ROM, no lymphadenopathy and no JVD Thyroid: thyroid normal Lymphatic: no lymphadenopathy noted Resp: Effort & Inspection: normal respiratory effort and able to speak in complete sentences Auscultation: clear to auscultation bilaterally Cardio: Jugular venous distension: no JVD Rate: regular rate Rhythm: regular rhythm Heart sounds: S1 normal heart sound present and S2 normal heart sound present : General: Yes deferred Skin: Rashes: no rashes Wounds: no wounds Neuro: General: patient oriented x3, CN's II-XI intact bilaterally and Unable to assess gait Cranial nerves: Yes CN's II-XII intact bilaterally and Yes Equal, round and reactive pupils present Cognition (Neuro): normal cognition Speech: normal speech Gait exam (Neuro): Unable to assess gait Motor exam (neuro): 5/5 motor strength present throughout Extrem: General: normal to inspection, full ROM, no joint enlargement and no pedal edema Objective Data Vital Signs Vital Signs: Vital Signs - 24 hr 04/26/24 17:25 04/26/24 18:05 04/26/24 18:53 Temperature 99.1 F Pulse Rate 127 H 101 H 102 H Respiratory Rate 15 16 14 Blood Pressure 120/58 L 114/64 103/69 Pulse Oximetry 98 96 94 Oxygen Delivery Room Air 04/26/24 20:49 04/26/24 22:36 04/26/24 22:56 Temperature 99.2 F 100.5 F H Pulse Rate 92 109 H 112 H Respiratory Rate 15 15 22 H Blood Pressure 105/61 119/59 L 119/69 Pulse Oximetry 98 96 95 Oxygen Delivery 04/26/24 23:04 04/27/24 00:00 04/27/24 00:00 Temperature Pulse Rate 111 H 135 H Respiratory Rate Blood Pressure Pulse Oximetry Oxygen Delivery Room Air 04/27/24 02:00 04/27/24 03:09 04/27/24 03:41 Temperature 103.0 F H 103.0 F H Pulse Rate 132 H 133 H Respiratory Rate 23 H Blood Pressure 110/54 L Pulse Oximetry 99 Oxygen Delivery 04/27/24 04:00 04/27/24 04:00 04/27/24 04:40 Temperature 98.8 F Pulse Rate 134 H Respiratory Rate Blood Pressure Pulse Oximetry Oxygen Delivery Room Air 04/27/24 04:48 04/27/24 06:00 04/27/24 08:00 Temperature 98.8 F 97.8 F Pulse Rate 105 H 85 Respiratory Rate 12 Blood Pressure 91/64 L Pulse Oximetry 98 Oxygen Delivery 04/27/24 08:00 04/27/24 08:00 04/27/24 10:00 Temperature Pulse Rate 90 86 Respiratory Rate Blood Pressure Pulse Oximetry Oxygen Delivery Room Air 04/27/24 12:00 Temperature 97.4 F L Pulse Rate 86 Respiratory Rate 12 Blood Pressure 103/63 Pulse Oximetry 98 Oxygen Delivery Intake/Output Intake/Output: Intake & Output 04/24/24 04/25/24 04/26/24 04/27/24 23:59 23:59 23:59 23:59 Intake Total 2150 2400 Output Total 750 Balance 2150 1650 Meds/Results Medications: Active Medications Generic Name Dose Route Start Last Admin Trade Name Freq PRN Reason Stop Dose Admin Dexamethasone Sodium Phosphate 6 mg 04/27/24 09:00 04/27/24 03:42 Dexamethasone Sod Phos Inj 10 Mg/Ml 1 Ml Vial IV PUSH 05/06/24 09:01 6 mg DAILY CHRIS Administration Hydromorphone HCl 0.5 mg 04/26/24 20:51 04/27/24 03:43 Hydromorphone Hcl Inj (*Crx) 1 Mg/Ml Syr IV PUSH 0.5 mg Q4H PRN Administration Pain Rated 7-10 Sodium Chloride 1,000 mls @ 125 mls/hr 04/26/24 20:55 04/27/24 08:22 Normal Saline Iv IV CONT Not Given .Q8H CHRIS Meropenem 500 mg in 100 mls @ 200 mls/hr 04/27/24 05:00 04/27/24 07:00 IVPB Infused Q8HR CHRIS Infusion Ibuprofen 800 mg in 200 mls @ 400 mls/hr 04/27/24 03:14 04/27/24 07:00 Caldolor 800 Mg/200 Ml IVPB Infused Q6H PRN Infusion Pain Rated 4-6/fever Ondansetron HCl 4 mg 04/26/24 20:51 04/27/24 02:07 Ondansetron Inj 4 Mg/2 Ml Vial IV PUSH 4 mg Q4H PRN Administration Nausea Radiology Results: ITS Impressions Abdomen/Pelvis CT 04/26/24 18:34 IMPRESSION: 1. Tiny stone in the right kidney lower pole. 2. Constipation 3. Enlarged prostate. Thickened wall of the urinary bladder which may indicate cystitis. 4. Right fat-containing small inguinal hernia. 5. Soft tissue density in the left side of the pelvis which may be a lymph nodes. Follow-up advised. 6. Small sliding hiatus hernia. Chest X-Ray 04/26/24 18:47 IMPRESSION: Left basilar atelectasis versus pneumonia. Labs Labs: Laboratory Results - last 24 hr 04/26/24 04/26/24 04/26/24 17:50 18:53 19:35 WBC 21.2 H RBC 4.02 L Hgb 12.5 L Hct 36.7 L MCV 91.3 MCH 31.1 MCHC 34.1 RDW 13.8 Plt Count 116 L MPV 10.2 Immature Gran % (Auto) 0.8 H Neut % (Auto) 79.8 H Lymph % (Auto) 14.2 L [place] % (Auto) 4.9 Eos % (Auto) 0.1 Baso % (Auto) 0.2 Lymph # (Auto) 3.00 [place] # (Auto) 1.0 H Eos # (Auto) 0.0 Baso # (Auto) 0.0 Abs Immat Gran (auto) 0.18 H Absolute Neuts (auto) 16.9 H Absolute Nucleated RBC 0.000 Nucleated RBC % 0.0 % Immature Plt Fraction PT 14.9 H INR 1.1 APTT 32.6 Sodium 125 L Potassium 3.7 Chloride 95 L Carbon Dioxide 28 Anion Gap 2 L BUN 18 Creatinine 1.20 Estim Creat Clear Calc 70 Estimated GFR > 60 Glucose 99 Lactic Acid 1.6 Calcium 8.6 Magnesium Total Bilirubin 1.9 H AST 24 ALT 16 Alkaline Phosphatase 68 C-Reactive Protein 19.8 H Total Protein 7.0 Albumin 3.8 Lipase 59 Urine Color Yellow Urine Appearance Clear Urine pH 7.0 Ur Specific [place] > 1.045 H Urine Protein Trace Urine Glucose (UA) Negative Urine Ketones Negative Ur Blood (Man) Non-hemolyzed trace Urine Nitrate Positive H Urine Bilirubin Negative Urine Urobilinogen 0.2 Leukocyte Esterase Rfl 2+ H Urine RBC 3-5 H Urine WBC >100 H Ur Squamous Epith Cells None seen Urine Bacteria 4+ H Urine Casts 0-2 04/27/24 08:35 WBC 27.1 H RBC 3.74 L Hgb 11.7 L Hct 34.9 L MCV 93.3 MCH 31.3 MCHC 33.5 RDW 13.8 Plt Count 99 L MPV 10.1 Immature Gran % (Auto) 11.7 H Neut % (Auto) 77.2 H Lymph % (Auto) 4.6 L [place] % (Auto) 5.9 Eos % (Auto) 0.3 Baso % (Auto) 0.3 Lymph # (Auto) 1.24 [place] # (Auto) 1.6 H Eos # (Auto) 0.1 Baso # (Auto) 0.1 Abs Immat Gran (auto) 3.16 H Absolute Neuts (auto) 21.0 H Absolute Nucleated RBC 0.000 Nucleated RBC % 0.0 % Immature Plt Fraction 5.0 PT INR APTT Sodium 131 L Potassium 3.7 Chloride 103 Carbon Dioxide 26 Anion Gap 2 L BUN 17 Creatinine 1.40 H Estim Creat Clear Calc 61 Estimated GFR 52 L Glucose 107 Lactic Acid Calcium 8.2 L Magnesium 1.9 Total Bilirubin 0.9 AST 23 ALT 16 Alkaline Phosphatase 70 C-Reactive Protein Total Protein 6.0 L Albumin 3.2 L Lipase Urine Color Urine Appearance Urine pH Ur Specific [place] Urine Protein Urine Glucose (UA) Urine Ketones Ur Blood (Man) Urine Nitrate Urine Bilirubin Urine Urobilinogen Leukocyte Esterase Rfl Urine RBC Urine WBC Ur Squamous Epith Cells Urine Bacteria Urine Casts
[2024-04-27] MEDS: buPROPion HCL 100 MG TABLET PO ×2 (14:13→21:42)
[2024-04-27] MEDS: predniSONE 10 MG TABLET PO (16:29)
[2024-04-27] MEDS: ATORVASTATIN 40 MG TABLET PO (21:42)
[2024-04-28] VITALS (12 sets, daily range): BP systolic 102–141; BP diastolic 58–75; PULSE 66–76; RESP 16–20; TEMP 36.6–37.1; O2SAT 95–97
[2024-04-28] MEDS: SODIUM CHLORIDE 0.9% IV 1,000 ML 125 ML IV CONT ×2 (01:34→09:50)
[2024-04-28] MEDS: MEROPENEM 500 MG/NS 100 ML 500 MG/100 ML BAG 200 MG IVPB (06:25)
[2024-04-28] MEDS: buPROPion HCL 100 MG TABLET PO ×2 (08:47→20:50)
[2024-04-28] MEDS: ASPIRIN 81 MG ENTERIC TABLET PO (08:47)
[2024-04-28] MEDS: predniSONE 10 MG TABLET PO ×2 (08:48→17:25)
[2024-04-28] MEDS: ENOXAPARIN 40 MG/0.4 ML SYRINGE SUB-Q (08:48)
[2024-04-28 09:43] LABS: Hematocrit 31.5 % (42.0-52.0); Hemoglobin 10.5 g/dL (14.0-18.0); Immature Platelet Fraction Pct 7.1 % (0.9-11.2); Mean Corpuscular HGB Conc 33.3 g/dl (32-36); Mean Corpuscular Hemoglobin 31.1 pg (26-34); Mean Corpuscular Volume 93.2 fl (80-100); Mean Platelet Volume 10.5 fl (7.4-10.4); Platelet Count Result 88 k/mm3 (150-375); Red Blood Count 3.38 M/mm3 (4.6-6.20); Red Cell Distribution Width 13.9 % (11.5-14.5); White Blood Count 19.7 K/mm3 (4.5-10.0)
[2024-04-28 09:53] LABS: Anion Gap 0 mmol/L (4-12); Blood Urea Nitrogen 18 mg/dL (9-20); Carbon Dioxide 27 mmol/L (22-30); Chloride 107 mmol/L (98-107); Estimated CRCL calculation 94 ml/min; Potassium 3.9 mmol/L (3.4-5.0); Sodium 134 mmol/L (137-145)
[2024-04-28 09:54] LABS: Alanine Aminotransferase 14 U/L (6-50); Albumin Level 2.9 g/dL (3.5-5.1); Alkaline Phosphatase 60 U/L (38-126); Aspartate Amino Transferase 24 U/L (17-59); Bilirubin,Total 0.5 mg/dL (0.2-1.3); Calcium 8.1 mg/dL (8.4-10.2); Estimated Glomerular Filt Rate > 60; Glucose 136 mg/dL (65-110)
[2024-04-28 11:02] LABS: Band Neutrophils Percent 10 % (0-6); Lymphocytes Absolute Manual 2.75 K/mm3 (1.1-4.5); Monocytes Absolute Manual 0.98 K/mm3 (0.1-0.90); Monocytes Percent Manual 5 % (3-9); Neutrophils Absolute Manual 15.95 K/mm3 (1.3-6.7); Neutrophils Percent Manual 71 % (46-73); Total Cells Counted 100
[2024-04-28 11:03] LABS: Platelet Estimate Decreased (Adequate); Schistocytes None Seen
--- NOTE | 2024-04-28 11:58 | P.PNUR_ITS ---
Progress Note: A&P Assessment and Plan (1) Acute prostatitis: Code(s): N41.0 - Acute prostatitis Status: Acute Assessment and Plan: Acute on chronic (2) Urinary tract infection: Code(s): N39.0 - Urinary tract infection, site not specified Status: Acute (3) BPH loc w urin obs/LUTS: Code(s): N40.1 - Benign prostatic hyperplasia with lower urinary tract symptoms Status: Acute Plan * Agree with culture-directed antibiotics [+ blood and urine cultures] * Recommend leaving catheter in until just prior to discharge. He should have a voiding trial prior to discharge. * No plan for inpatient urologic surgical intervention * Follow-up with Dr. Art as an outpatient Subjective Subjective Date/Time Seen: 04/28/24 11:58 Interval history: NAEO. Patient OOB ambulating to bathroom. Indwelling Roper catheter intact draining clear light red urine. No clots. Urine culture +Klebsiella oxytoca, Blood culture 1/2 +gram neg bacilli on IV meropenem. Leukocytosis improving, WBC 19.7 from 27.1. ALLIE resolved, Cr 0.9 from 1.4. Afebrile. Patient reports feeling better overall. Exam Const: General: comfortable and no acute distress HENMT: Mouth: Yes moist mucous membranes Eyes: General: appearance normal, both eyes and all related structures Resp: Effort & Inspection: normal respiratory effort Urinary Catheter: Urinary Catheter: patent and draining Neuro: General: gait normal Speech: normal speech Psych: Mental Status: mental status grossly normal Objective Data Vital Signs Vital Signs: Vital Signs - 24 hr 04/27/24 12:00 04/27/24 12:00 04/27/24 12:00 Temperature 97.4 F L Pulse Rate 86 86 Respiratory Rate 12 Blood Pressure 103/63 Pulse Oximetry 98 Oxygen Delivery Room Air 04/27/24 14:00 04/27/24 16:00 04/27/24 16:00 Temperature 98.0 F Pulse Rate 86 81 77 Respiratory Rate 12 Blood Pressure 104/62 Pulse Oximetry 98 Oxygen Delivery 04/27/24 18:00 04/27/24 19:59 04/27/24 20:00 Temperature 97.6 F Pulse Rate 76 78 83 Respiratory Rate 16 Blood Pressure 116/66 Pulse Oximetry 99 Oxygen Delivery 04/27/24 21:40 04/27/24 22:00 04/28/24 00:00 Temperature Pulse Rate 78 Respiratory Rate Blood Pressure Pulse Oximetry Oxygen Delivery Room Air Room Air 04/28/24 00:00 04/28/24 00:05 04/28/24 02:00 Temperature 98.2 F Pulse Rate 76 74 74 Respiratory Rate 18 Blood Pressure 118/66 Pulse Oximetry 97 Oxygen Delivery 04/28/24 03:25 04/28/24 04:00 04/28/24 04:30 Temperature 98.0 F Pulse Rate 66 66 Respiratory Rate 18 Blood Pressure 102/58 L Pulse Oximetry 96 Oxygen Delivery Room Air 04/28/24 06:00 04/28/24 08:00 04/28/24 08:00 Temperature Pulse Rate 69 70 74 Respiratory Rate 20 Blood Pressure Pulse Oximetry 95 Oxygen Delivery Room Air 04/28/24 08:03 04/28/24 10:00 Temperature 98.3 F Pulse Rate 70 70 Respiratory Rate 20 Blood Pressure 106/65 Pulse Oximetry 95 Oxygen Delivery Intake/Output Intake/Output: Intake & Output 04/25/24 04/26/24 04/27/24 04/28/24 23:59 23:59 23:59 23:59 Intake Total 2150 4160 3689 Output Total 2500 1900 Balance 2150 1660 1789 Meds/Results Medications: Active Medications Generic Name Dose Route Start Last Admin Trade Name Freq PRN Reason Stop Dose Admin Aspirin 81 mg 04/28/24 09:00 04/28/24 08:47 Aspirin 81 Mg Enteric Tablet PO 81 mg DAILY CHRIS Administration Atorvastatin Calcium 40 mg 04/27/24 21:00 04/27/24 21:42 Atorvastatin 40 Mg Tablet PO 40 mg HS CHRIS Administration Bupropion HCl 100 mg 04/27/24 12:45 04/28/24 08:47 Bupropion Hcl 100 Mg Tablet PO 100 mg Q12HR CHRIS Administration Enoxaparin Sodium 40 mg 04/28/24 09:00 04/28/24 08:48 Enoxaparin 40 Mg/0.4 Ml Syringe SUB-Q 40 mg DAILY CHRIS Administration Hydromorphone HCl 0.5 mg 04/26/24 20:51 04/27/24 16:28 Hydromorphone Hcl Inj (*Crx) 1 Mg/Ml Syr IV PUSH 0.5 mg Q4H PRN Administration Pain Rated 7-10 Meropenem 500 mg in 100 mls @ 200 mls/hr 04/27/24 05:00 04/28/24 06:55 IVPB Infused Q8HR CHRIS Infusion Ibuprofen 800 mg in 200 mls @ 400 mls/hr 04/27/24 03:14 04/27/24 22:20 Caldolor 800 Mg/200 Ml IVPB Infused Q6H PRN Infusion Pain Rated 4-6/fever Ondansetron HCl 4 mg 04/26/24 20:51 04/27/24 02:07 Ondansetron Inj 4 Mg/2 Ml Vial IV PUSH 4 mg Q4H PRN Administration Nausea Prednisone 10 mg 04/27/24 17:00 04/28/24 08:48 Prednisone 10 Mg Tablet PO 10 mg BID CHRIS Administration Radiology Results: ITS Impressions Abdomen/Pelvis CT 04/26/24 18:34 IMPRESSION: 1. Tiny stone in the right kidney lower pole. 2. Constipation 3. Enlarged prostate. Thickened wall of the urinary bladder which may indicate cystitis. 4. Right fat-containing small inguinal hernia. 5. Soft tissue density in the left side of the pelvis which may be a lymph nodes. Follow-up advised. 6. Small sliding hiatus hernia. Chest X-Ray 04/26/24 18:47 IMPRESSION: Left basilar atelectasis versus pneumonia. Labs Labs: Laboratory Results - last 24 hr 04/28/24 09:34 WBC 19.7 H RBC 3.38 L Hgb 10.5 L Hct 31.5 L MCV 93.2 MCH 31.1 MCHC 33.3 RDW 13.9 Plt Count 88 L MPV 10.5 H Immature Gran % (Auto) Not Reportable Neut % (Auto) Not Reportable Lymph % (Auto) Not Reportable [place] % (Auto) Not Reportable Eos % (Auto) Not Reportable Baso % (Auto) Not Reportable Lymph # (Auto) Not Reportable [place] # (Auto) Not Reportable Eos # (Auto) Not Reportable Baso # (Auto) Not Reportable Abs Immat Gran (auto) Not Reportable Absolute Neuts (auto) Not Reportable Absolute Nucleated RBC Not Reportable Total Counted 100 Neutrophils % (Manual) 71 Band Neutrophils % 10 H Lymphocytes % (Manual) 14.0 L Monocytes % (Manual) 5 Nucleated RBC % Not Reportable Abs Neuts (Manual) 15.95 H Abs Lymphs (Manual) 2.75 Abs Monocytes (Manual) 0.98 H Platelet Estimate Decreased % Immature Plt Fraction 7.1 Schistocytes None seen Sodium 134 L Potassium 3.9 Chloride 107 Carbon Dioxide 27 Anion Gap 0 L BUN 18 Creatinine 0.90 Estim Creat Clear Calc 94 Estimated GFR > 60 Glucose 136 H Calcium 8.1 L Total Bilirubin 0.5 AST 24 ALT 14 Alkaline Phosphatase 60 Total Protein 6.0 L Albumin 2.9 L
--- NOTE | 2024-04-28 13:55 | PC.NURSE ---
This patient, Chalino Deng, was transferred to [[id number] ] on 04/28/24 at 1355. Personal belongings sent with patient. Report given to [TOVA Hannah @ [phone] ]. Appropriate documentation sent with patient.
--- NOTE | 2024-04-28 14:07 | P.PNIM_ITS ---
Progress Note: A&P Assessment and Plan (1) Sepsis: Code(s): A41.9 - Sepsis, unspecified organism Status: Acute Assessment and Plan: vital signs stable Likely secondary to prostatitis (2) Prostatitis: Qualifiers: Prostatitis type: chronic Qualified Code(s): N41.1 - Chronic prostatiti s Code(s): N41.9 - Inflammatory disease of prostate, unspecified Status: Acute Assessment and Plan: Currently on [facility] following f/u on urine culture (3) Urinary tract infection: Code(s): N39.0 - Urinary tract infection, site not specified Status: Acute Assessment and Plan: Patient started on Merrem Await cultures (4) Rheumatoid arthritis, unspecified: Code(s): M06.9 - Rheumatoid arthritis, unspecified Status: Acute Assessment and Plan: Hold methotrexate Continue prednisone to avoid adrenal crisis Patient receives symphony infusions every 2 months (5) PRASHANTH (obstructive sleep apnea): Code(s): G47.33 - Obstructive sleep apnea (adult) (pediatric) Status: Acute Assessment and Plan: CPAP at nighttime (6) Essential (primary) hypertension: Code(s): I10 - Essential (primary) hypertension Status: Acute Assessment and Plan: Restart as needed (7) GERD (gastroesophageal reflux disease): Code(s): K21.9 - Gastro-esophageal reflux disease without esophagitis Status: Acute Assessment and Plan: PPI Plan Klebsiella oxytoca bacteremia from prostatitis Blood and urine culture positive Continue MEropenem pending sensitivity urology following DVT prophylaxis on Sq Lovenox Subjective Date/time seen: 04/28/24 14:07 Interval history: comfortable at bedside and urine and blood culture growing Klebsiella oxytoca, Patient is being managed for bacterial prostatitis and he will continue sensitive antibiotics x 6 weeks awaiting sensitivity urology recommends having catheter in until ready for discharge Review of Systems Review of Systems: Chills, fevers, urinary retention Exam Narrative: Laying in a stretcher Const: General: comfortable, no acute distress, well developed, alert, awake, ill appearing acutely, tired appearing and average body habitus Nutritional Appearance: average body habitus Orientation/consciousness: patient oriented x3 HENMT: Head: normal to inspection, normocephalic and atraumatic Ears: hearing grossly normal bilaterally Face/Nose/Sinus: normal facial exam Face and sinus: normal facial exam Eyes: General: appearance normal, both eyes and all related structures Pupils: Equal, round and reactive pupils present EOM: EOMs intact bilaterally Neck: Neck: full ROM, no lymphadenopathy and no JVD Thyroid: thyroid normal Lymphatic: no lymphadenopathy noted Resp: Effort & Inspection: normal respiratory effort and able to speak in complete sentences Auscultation: clear to auscultation bilaterally Cardio: Jugular venous distension: no JVD Rate: regular rate Rhythm: regular rhythm Heart sounds: S1 normal heart sound present and S2 normal heart sound present : General: Yes deferred Skin: Rashes: no rashes Wounds: no wounds Neuro: General: patient oriented x3, CN's II-XI intact bilaterally and Unable to assess gait Cranial nerves: Yes CN's II-XII intact bilaterally and Yes Equal, round and reactive pupils present Cognition (Neuro): normal cognition Speech: normal speech Gait exam (Neuro): Unable to assess gait Motor exam (neuro): 5/5 motor strength present throughout Extrem: General: normal to inspection, full ROM, no joint enlargement and no pedal edema Objective Data Vital Signs Vital Signs: Vital Signs - 24 hr 04/27/24 16:00 04/27/24 16:00 04/27/24 18:00 Temperature 98.0 F Pulse Rate 81 77 76 Respiratory Rate 12 Blood Pressure 104/62 Pulse Oximetry 98 Oxygen Delivery 04/27/24 19:59 04/27/24 20:00 04/27/24 21:40 Temperature 97.6 F Pulse Rate 78 83 Respiratory Rate 16 Blood Pressure 116/66 Pulse Oximetry 99 Oxygen Delivery Room Air 04/27/24 22:00 04/28/24 00:00 04/28/24 00:00 Temperature Pulse Rate 78 76 Respiratory Rate Blood Pressure Pulse Oximetry Oxygen Delivery Room Air 04/28/24 00:05 04/28/24 02:00 04/28/24 03:25 Temperature 98.2 F 98.0 F Pulse Rate 74 74 66 Respiratory Rate 18 18 Blood Pressure 118/66 102/58 L Pulse Oximetry 97 96 Oxygen Delivery 04/28/24 04:00 04/28/24 04:30 04/28/24 06:00 Temperature Pulse Rate 66 69 Respiratory Rate Blood Pressure Pulse Oximetry Oxygen Delivery Room Air 04/28/24 08:00 04/28/24 08:00 04/28/24 08:03 Temperature 98.3 F Pulse Rate 70 74 70 Respiratory Rate 20 20 Blood Pressure 106/65 Pulse Oximetry 95 95 Oxygen Delivery Room Air 04/28/24 10:00 Temperature Pulse Rate 70 Respiratory Rate Blood Pressure Pulse Oximetry Oxygen Delivery Intake/Output Intake/Output: Intake & Output 04/25/24 04/26/24 04/27/24 04/28/24 23:59 23:59 23:59 23:59 Intake Total 2150 4160 3929 Output Total 2500 1900 Balance 2150 1660 9 Meds/Results Medications: Active Medications Generic Name Dose Route Start Last Admin Trade Name Freq PRN Reason Stop Dose Admin Aspirin 81 mg 04/28/24 09:00 04/28/24 08:47 Aspirin 81 Mg Enteric Tablet PO 81 mg DAILY CHRIS Administration Atorvastatin Calcium 40 mg 04/27/24 21:00 04/27/24 21:42 Atorvastatin 40 Mg Tablet PO 40 mg HS CHRIS Administration Bupropion HCl 100 mg 04/27/24 12:45 04/28/24 08:47 Bupropion Hcl 100 Mg Tablet PO 100 mg Q12HR CHRIS Administration Enoxaparin Sodium 40 mg 04/28/24 09:00 04/28/24 08:48 Enoxaparin 40 Mg/0.4 Ml Syringe SUB-Q 40 mg DAILY CHRIS Administration Hydromorphone HCl 0.5 mg 04/26/24 20:51 04/27/24 16:28 Hydromorphone Hcl Inj (*Crx) 1 Mg/Ml Syr IV PUSH 0.5 mg Q4H PRN Administration Pain Rated 7-10 Ibuprofen 800 mg in 200 mls @ 400 mls/hr 04/27/24 03:14 04/27/24 22:20 Caldolor 800 Mg/200 Ml IVPB Infused Q6H PRN Infusion Pain Rated 4-6/fever Meropenem 1 gm in 100 mls @ 200 mls/hr 04/28/24 14:00 IVPB Q8H CHRIS Ondansetron HCl 4 mg 04/26/24 20:51 04/27/24 02:07 Ondansetron Inj 4 Mg/2 Ml Vial IV PUSH 4 mg Q4H PRN Administration Nausea Prednisone 10 mg 04/27/24 17:00 04/28/24 08:48 Prednisone 10 Mg Tablet PO 10 mg BID CHRIS Administration Radiology Results: ITS Impressions Abdomen/Pelvis CT 04/26/24 18:34 IMPRESSION: 1. Tiny stone in the right kidney lower pole. 2. Constipation 3. Enlarged prostate. Thickened wall of the urinary bladder which may indicate cystitis. 4. Right fat-containing small inguinal hernia. 5. Soft tissue density in the left side of the pelvis which may be a lymph nodes. Follow-up advised. 6. Small sliding hiatus hernia. Chest X-Ray 04/26/24 18:47 IMPRESSION: Left basilar atelectasis versus pneumonia. Labs Labs: Laboratory Results - last 24 hr 04/28/24 09:34 WBC 19.7 H RBC 3.38 L Hgb 10.5 L Hct 31.5 L MCV 93.2 MCH 31.1 MCHC 33.3 RDW 13.9 Plt Count 88 L MPV 10.5 H Immature Gran % (Auto) Not Reportable Neut % (Auto) Not Reportable Lymph % (Auto) Not Reportable [place] % (Auto) Not Reportable Eos % (Auto) Not Reportable Baso % (Auto) Not Reportable Lymph # (Auto) Not Reportable [place] # (Auto) Not Reportable Eos # (Auto) Not Reportable Baso # (Auto) Not Reportable Abs Immat Gran (auto) Not Reportable Absolute Neuts (auto) Not Reportable Absolute Nucleated RBC Not Reportable Total Counted 100 Neutrophils % (Manual) 71 Band Neutrophils % 10 H Lymphocytes % (Manual) 14.0 L Monocytes % (Manual) 5 Nucleated RBC % Not Reportable Abs Neuts (Manual) 15.95 H Abs Lymphs (Manual) 2.75 Abs Monocytes (Manual) 0.98 H Platelet Estimate Decreased % Immature Plt Fraction 7.1 Schistocytes None seen Sodium 134 L Potassium 3.9 Chloride 107 Carbon Dioxide 27 Anion Gap 0 L BUN 18 Creatinine 0.90 Estim Creat Clear Calc 94 Estimated GFR > 60 Glucose 136 H Calcium 8.1 L Total Bilirubin 0.5 AST 24 ALT 14 Alkaline Phosphatase 60 Total Protein 6.0 L Albumin 2.9 L
[2024-04-28] MEDS: MEROPENEM 1 GM/NS 100 ML 1 GM/100 ML BAG IVPB ×2 (15:29→22:54)
--- NOTE | 2024-04-28 19:58 | PC.NURSE ---
On 04/28/24, the CERAMIC DESIGN ENGINEER, Brielle Dillard, provided care and [facility]. I have reviewed the CERAMIC DESIGN ENGINEER's documentation and agree with the findings.
[2024-04-28] MEDS: ATORVASTATIN 40 MG TABLET PO (20:50)
[2024-04-28] MEDS: HYDROmorphone HCL INJ (*CRX) 1 MG/ML SYR 0.5 MG IV PUSH (20:55)
[2024-04-29 04:23] VITALS: BP 142/84; PULSE 63; RESP 16; TEMP 36.4; O2SAT 98
[2024-04-29] MEDS: MEROPENEM 1 GM/NS 100 ML 1 GM/100 ML BAG IVPB (05:07)
[2024-04-29] MEDS: ONDANSETRON INJ 4 MG/2 ML VIAL IV PUSH (05:39)
[2024-04-29] MEDS: CALCIUM CARBONATE (TUMS) 500 MG (200 MG ELEMENTAL) PO ×2 (05:39→14:43)
[2024-04-29 07:32] LABS: Basophils Percent Auto 0.2 % (0.2-1.2); Eosinophils Percent Auto 0.2 % (0-4.4); Hematocrit 32.1 % (42.0-52.0); Hemoglobin 10.5 g/dL (14.0-18.0); Immature Granulocyte Absolute 0.08 K/mm3 (0.00-0.031); Immature Granulocyte Percent A 0.6 % (0-0.5); Immature Platelet Fraction Pct 8.6 % (0.9-11.2); Lymphocytes Absolute Auto 2.35 K/mm3 (0.9-3.2); Lymphocytes Percent Auto 18.4 % (18.3-44.2); Mean Corpuscular HGB Conc 32.7 g/dl (32-36); Mean Corpuscular Hemoglobin 30.7 pg (26-34); Mean Corpuscular Volume 93.9 fl (80-100); Monocytes Absolute Auto 0.5 K/mm3 (0.1-0.6); Monocytes Percent Auto 4.1 % (2.6-8.5); Neutrophils Absolute Auto 9.8 K/mm3 (1.3-6.7); Neutrophils Percent Auto 76.5 % (45.5-73.1); Platelet Count Result 104 k/mm3 (150-375); Red Blood Count 3.42 M/mm3 (4.6-6.20); Red Cell Distribution Width 14.2 % (11.5-14.5); White Blood Count 12.8 K/mm3 (4.5-10.0)
[2024-04-29 07:41] LABS: Alanine Aminotransferase 16 U/L (6-50); Albumin Level 2.9 g/dL (3.5-5.1); Alkaline Phosphatase 62 U/L (38-126); Anion Gap 1 mmol/L (4-12); Aspartate Amino Transferase 26 U/L (17-59); Bilirubin,Total 0.5 mg/dL (0.2-1.3); Blood Urea Nitrogen 23 mg/dL (9-20); Calcium 8.3 mg/dL (8.4-10.2); Carbon Dioxide 25 mmol/L (22-30); Chloride 110 mmol/L (98-107); Estimated CRCL calculation 105 ml/min; Estimated Glomerular Filt Rate > 60; Glucose 98 mg/dL (65-110); Magnesium 2.4 mg/dL (1.6-2.3); Potassium 3.8 mmol/L (3.4-5.0); Sodium 136 mmol/L (137-145)
[2024-04-29] MEDS: buPROPion HCL 100 MG TABLET PO ×2 (09:17→21:06)
[2024-04-29] MEDS: predniSONE 10 MG TABLET PO ×2 (09:17→18:13)
[2024-04-29] MEDS: ASPIRIN 81 MG ENTERIC TABLET PO (09:17)
--- NOTE | 2024-04-29 10:15 | P.PNIM_ITS ---
Progress Note: A&P Assessment and Plan (1) Sepsis: Code(s): A41.9 - Sepsis, unspecified organism Status: Acute Assessment and Plan: 04/29/2024 Likely secondary to prostatitis Continue with antibiotics. Monitor blood urine culture. (2) Prostatitis: Qualifiers: Prostatitis type: chronic Qualified Code(s): N41.1 - Chronic prostatitis Code(s): N41.9 - Inflammatory disease of prostate, unspecified Status: Acute Assessment and Plan: 04/29/2024 Currently on [facility] following f/u on urine culture (3) Urinary tract infection: Code(s): N39.0 - Urinary tract infection, site not specified Status: Acute Assessment and Plan: Patient started on Merrem Await cultures (4) Rheumatoid arthritis, unspecified: Code(s): M06.9 - Rheumatoid arthritis, unspecified Status: Acute Assessment and Plan: Hold methotrexate Continue prednisone to avoid adrenal crisis Patient receives symphony infusions every 2 months (5) PRASHANTH (obstructive sleep apnea): Code(s): G47.33 - Obstructive sleep apnea (adult) (pediatric) Status: Acute Assessment and Plan: CPAP at nighttime (6) Essential (primary) hypertension: Code(s): I10 - Essential (primary) hypertension Status: Acute Assessment and Plan: Restart as needed (7) GERD (gastroesophageal reflux disease): Code(s): K21.9 - Gastro-esophageal reflux disease without esophagitis Status: Acute Assessment and Plan: PPI Plan 04/29/2024 Klebsiella oxytoca bacteremia from prostatitis Blood and urine culture positive Continue Meropenem pending sensitivity urology following Possible discharge in a.m. DVT prophylaxis on Sq Lovenox Subjective Date/time seen: 04/29/24 10:15 Interval history: Patient was seen during morning rounds today. Feeling much better. No Abdominal pain, no nausea. No shortness of breath or chest pain. Review of Systems Review of Systems: Chills, fevers, urinary retention Exam Narrative: Laying in a stretcher Const: General: comfortable, no acute distress, well developed, alert, awake, ill appearing acutely, tired appearing and average body habitus Nutritional Appearance: average body habitus Orientation/consciousness: patient oriented x3 HENMT: Head: normal to inspection, normocephalic and atraumatic Ears: hearing grossly normal bilaterally Face/Nose/Sinus: normal facial exam Face and sinus: normal facial exam Eyes: General: appearance normal, both eyes and all related structures Pupils: Equal, round and reactive pupils present EOM: EOMs intact bilaterally Neck: Neck: full ROM, no lymphadenopathy and no JVD Thyroid: thyroid normal Lymphatic: no lymphadenopathy noted Resp: Effort & Inspection: normal respiratory effort and able to speak in complete sentences Auscultation: clear to auscultation bilaterally Cardio: Jugular venous distension: no JVD Rate: regular rate Rhythm: r egular rhythm Heart sounds: S1 normal heart sound present and S2 normal heart sound present : General: Yes deferred Skin: Rashes: no rashes Wounds: no wounds Neuro: General: patient oriented x3, CN's II-XI intact bilaterally and Unable to assess gait Cranial nerves: Yes CN's II-XII intact bilaterally and Yes Equal, round and reactive pupils present Cognition (Neuro): normal cognition Speech: normal speech Gait exam (Neuro): Unable to assess gait Motor exa m (neuro): 5/5 motor strength present throughout Extrem: General: normal to inspection, full ROM, no joint enlargement and no pedal edema Objective Data Vital Signs Vital Signs: Vital Signs - 24 hr 04/28/24 13:45 04/28/24 14:39 04/28/24 20:47 Temperature 36.6 C 37.1 C Pulse Rate 74 72 Respiratory Rate 20 16 Blood Pressure 125/69 141/75 H Pulse Oximetry 97 97 Oxygen Delivery Room Air 04/28/24 20:50 04/29/24 04:23 Temperature 36.4 C L Pulse Rate 74 63 Respiratory Rate 20 16 Blood Pressure 142/84 H Pulse Oximetry 97 98 Oxygen Delivery Room Air Intake/Output Intake/Output: Intake & Output 04/26/24 04/27/24 04/28/24 04/29/24 23:59 23:59 23:59 23:59 Intake Total 2150 4160 4487 890 Output Total 2500 2750 500 Balance 2150 1660 1737 390 Meds/Results Medications: Active Medications Generic Name Dose Route Start Last Admin Trade Name Freq PRN Reason Stop Dose Admin Aspirin 81 mg 04/28/24 09:00 04/29/24 09:17 Aspirin 81 Mg Enteric Tablet PO 81 mg DAILY CHRIS Administration Atorvastatin Calcium 40 mg 04/27/24 21:00 04/28/24 20:50 Atorvastatin 40 Mg Tablet PO 40 mg HS CHRIS Administration Bupropion HCl 100 mg 04/27/24 12:45 04/29/24 09:17 Bupropion Hcl 100 Mg Tablet PO 100 mg Q12HR CHRIS Administration Calcium Carbonate 200 mg 04/29/24 04:30 04/29/24 05:39 Calcium Carbonate (Tums) 500 Mg (200 Mg Elemental) PO 200 mg Q6H PRN Administration Indigestion Enoxaparin Sodium 40 mg 04/28/24 09:00 04/29/24 09:18 Enoxaparin 40 Mg/0.4 Ml Syringe SUB-Q Not Given DAILY CHRIS Hydromorphone HCl 0.5 mg 04/26/24 20:51 04/28/24 20:55 Hydromorphone Hcl Inj (*Crx) 1 Mg/Ml Syr IV PUSH 0.5 mg Q4H PRN Administration Pain Rated 7-10 Ibuprofen 800 mg in 200 mls @ 400 mls/hr 04/27/24 03:14 04/27/24 22:20 Caldolor 800 Mg/200 Ml IVPB Infused Q6H PRN Infusion Pain Rated 4-6/fever Meropenem 1 gm in 100 mls @ 200 mls/hr 04/28/24 14:00 04/29/24 05:37 IVPB Infused Q8H CHRIS Infusion Ondansetron HCl 4 mg 04/26/24 20:51 04/29/24 05:39 Ondansetron Inj 4 Mg/2 Ml Vial IV PUSH 4 mg Q4H PRN Administration Nausea Prednisone 10 mg 04/27/24 17:00 04/29/24 09:17 Prednisone 10 Mg Tablet PO 10 mg BID CHRIS Administration Radiology Results: ITS Impressions Abdomen/Pelvis CT 04/26/24 18:34 IMPRESSION: 1. Tiny stone in the right kidney lower pole. 2. Constipation 3. Enlarged prostate. Thickened wall of the urinary bladder which may indicate cystitis. 4. Right fat-containing small inguinal hernia. 5. Soft tissue density in the left side of the pelvis which may be a lymph nodes. Follow-up advised. 6. Small sliding hiatus hernia. Chest X-Ray 04/26/24 18:47 IMPRESSION: Left basilar atelectasis versus pneumonia. Labs Labs: Laboratory Results - last 24 hr 04/28/24 04/29/24 09:34 06:49 WBC 19.7 H 12.8 H RBC 3.38 L 3.42 L Hgb 10.5 L 10.5 L Hct 31.5 L 32.1 L MCV 93.2 93.9 MCH 31.1 30.7 MCHC 33.3 32.7 RDW 13.9 14.2 Plt Count 88 L 104 L MPV 10.5 H 12.0 H Immature Gran % (Auto) Not Reportable 0.6 H Neut % (Auto) Not Reportable 76.5 H Lymph % (Auto) Not Reportable 18.4 [place] % (Auto) Not Reportable 4.1 Eos % (Auto) Not Reportable 0.2 Baso % (Auto) Not Reportable 0.2 Lymph # (Auto) Not Reportable 2.35 [place] # (Auto) Not Reportable 0.5 Eos # (Auto) Not Reportable 0.0 Baso # (Auto) Not Reportable 0.0 Abs Immat Gran (auto) Not Reportable 0.08 H Absolute Neuts (auto) Not Reportable 9.8 H Absolute Nucleated RBC Not Reportable 0.000 Total Counted 100 Neutrophils % (Manual) 71 Band Neutrophils % 10 H Lymphocytes % (Manual) 14.0 L Monocytes % (Manual) 5 Nucleated RBC % Not Reportable 0.0 Abs Neuts (Manual) 15.95 H Abs Lymphs (Manual) 2.75 Abs Monocytes (Manual) 0.98 H Platelet Estimate Decreased % Immature Plt Fraction 7.1 8.6 Schistocytes None seen Sodium 136 L Potassium 3.8 Chloride 110 H Carbon Dioxide 25 Anion Gap 1 L BUN 23 H Creatinine 0.80 Estim Creat Clear Calc 105 Estimated GFR > 60 Glucose 98 Calcium 8.3 L Magnesium 2.4 H Total Bilirubin 0.5 AST 26 ALT 16 Alkaline Phosphatase 62 Total Protein 6.0 L Albumin 2.9 L
--- NOTE | 2024-04-29 12:25 | P.PNUR_ITS ---
Progress Note: A&P Assessment and Plan (1) Acute prostatitis: Code(s): N41.0 - Acute prostatitis Status: Acute Assessment and Plan: Acute on chronic (2) Urinary tract infection: Code(s): N39.0 - Urinary tract infection, site not specified Status: Acute (3) BPH loc w urin obs/LUTS: Code(s): N40.1 - Benign prostatic hyperplasia with lower urinary tract symptoms Status: Acute Plan * Agree with culture-directed antibiotics for + blood and urine cultures * Void trial in process * No plan for inpatient urologic surgical intervention * Follow-up with Dr. Art as an outpatient Subjective Subjective Date/Time Seen: 04/29/24 12:25 Interval history: NAEO; [facility] out this morning, patient denies complaints Leukocytosis resolving Renal function stable Afebrile Discharge pending blood culture speciation/susceptibilities Exam Const: General: comfortable and no acute distress HENMT: Mouth: Yes moist mucous membranes Eyes: General: appearance normal, both eyes and all related structures Resp: Effort & Inspection: normal respiratory effort Skin: General skin exam: normal color Neuro: General: gait normal Speech: normal speech Extrem: General: normal to inspection Psych: Mental Status: mental status grossly normal Objective Data Vital Signs Vital Signs: Vital Signs - 24 hr 04/28/24 13:45 04/28/24 14:39 04/28/24 20:47 Temperature 97.9 F 98.8 F Pulse Rate 74 72 Respiratory Rate 20 16 Blood Pressure 125/69 141/75 H Pulse Oximetry 97 97 Oxygen Delivery Room Air 04/28/24 20:50 04/29/24 04:23 Temperature 97.5 F L Pulse Rate 74 63 Respiratory Rate 20 16 Blood Pressure 142/84 H Pulse Oximetry 97 98 Oxygen Delivery Room Air Intake/Output Intake/Output: Intake & Output 04/26/24 04/27/24 04/28/24 04/29/24 23:59 23:59 23:59 23:59 Intake Total 2150 4160 4487 890 Output Total 2500 2750 500 Balance 2150 1660 1737 390 Meds/Results Medications: Active Medications Generic Name Dose Route Start Last Admin Trade Name Freq PRN Reason Stop Dose Admin Aspirin 81 mg 04/28/24 09:00 04/29/24 09:17 Aspirin 81 Mg Enteric Tablet PO 81 mg DAILY CHRIS Administration Atorvastatin Calcium 40 mg 04/27/24 21:00 04/28/24 20:50 Atorvastatin 40 Mg Tablet PO 40 mg HS CHRIS Administration Bupropion HCl 100 mg 04/27/24 12:45 04/29/24 09:17 Bupropion Hcl 100 Mg Tablet PO 100 mg Q12HR CHRIS Administration Calcium Carbonate 200 mg 04/29/24 04:30 04/29/24 05:39 Calcium Carbonate (Tums) 500 Mg (200 Mg Elemental) PO 200 mg Q6H PRN Administration Indigestion Enoxaparin Sodium 40 mg 04/28/24 09:00 04/29/24 09:18 Enoxaparin 40 Mg/0.4 Ml Syringe SUB-Q Not Given DAILY CHRIS Hydromorphone HCl 0.5 mg 04/26/24 20:51 04/28/24 20:55 Hydromorphone Hcl Inj (*Crx) 1 Mg/Ml Syr IV PUSH 0.5 mg Q4H PRN Administration Pain Rated 7-10 Ibuprofen 800 mg in 200 mls @ 400 mls/hr 04/27/24 03:14 04/27/24 22:20 Caldolor 800 Mg/200 Ml IVPB Infused Q6H PRN Infusion Pain Rated 4-6/fever Meropenem 1 gm in 100 mls @ 200 mls/hr 04/28/24 14:00 04/29/24 05:37 IVPB Infused Q8H CHRIS Infusion Ondansetron HCl 4 mg 04/26/24 20:51 04/29/24 05:39 Ondansetron Inj 4 Mg/2 Ml Vial IV PUSH 4 mg Q4H PRN Administration Nausea Prednisone 10 mg 04/27/24 17:00 04/29/24 09:17 Prednisone 10 Mg Tablet PO 10 mg BID CHRIS Administration Radiology Results: ITS Impressions Abdomen/Pelvis CT 04/26/24 18:34 IMPRESSION: 1. Tiny stone in the right kidney lower pole. 2. Constipation 3. Enlarged prostate. Thickened wall of the urinary bladder which may indicate cystitis. 4. Right fat-containing small inguinal hernia. 5. Soft tissue density in the left side of the pelvis which may be a lymph nodes. Follow-up advised. 6. Small sliding hiatus hernia. Chest X-Ray 04/26/24 18:47 IMPRESSION: Left basilar atelectasis versus pneumonia. Labs Labs: Laboratory Results - last 24 hr 04/29/24 06:49 WBC 12.8 H RBC 3.42 L Hgb 10.5 L Hct 32.1 L MCV 93.9 MCH 30.7 MCHC 32.7 RDW 14.2 Plt Count 104 L MPV 12.0 H Immature Gran % (Auto) 0.6 H Neut % (Auto) 76.5 H Lymph % (Auto) 18.4 [place] % (Auto) 4.1 Eos % (Auto) 0.2 Baso % (Auto) 0.2 Lymph # (Auto) 2.35 [place] # (Auto) 0.5 Eos # (Auto) 0.0 Baso # (Auto) 0.0 Abs Immat Gran (auto) 0.08 H Absolute Neuts (auto) 9.8 H Absolute Nucleated RBC 0.000 Nucleated RBC % 0.0 % Immature Plt Fraction 8.6 Sodium 136 L Potassium 3.8 Chloride 110 H Carbon Dioxide 25 Anion Gap 1 L BUN 23 H Creatinine 0.80 Estim Creat Clear Calc 105 Estimated GFR > 60 Glucose 98 Calcium 8.3 L Magnesium 2.4 H Total Bilirubin 0.5 AST 26 ALT 16 Alkaline Phosphatase 62 Total Protein 6.0 L Albumin 2.9 L
[2024-04-29] MEDS: cefTRIAXone 2 GM/NS 100 ML 2 GM/100 ML BAG IVPB (14:29)
[2024-04-29 16:00] VITALS: BP 123/76; PULSE 87; RESP 18; TEMP 36.7; O2SAT 98
[2024-04-29] MEDS: ATORVASTATIN 40 MG TABLET PO (21:06)
[2024-04-29 22:00] VITALS: BP 145/81; PULSE 58; RESP 16; TEMP 36.2; O2SAT 100
[2024-04-30] MEDS: IBUPROFEN IV 800 MG/200 ML 800 MG/200 ML BAG 400 MG IVPB ×2 (02:20→23:44)
[2024-04-30] MEDS: ONDANSETRON INJ 4 MG/2 ML VIAL IV PUSH (02:21)
[2024-04-30] MEDS: CALCIUM CARBONATE (TUMS) 500 MG (200 MG ELEMENTAL) PO (02:41)
[2024-04-30 05:42] VITALS: BP 135/79; PULSE 50; RESP 16; TEMP 36.1; O2SAT 100
[2024-04-30] MEDS: cefTRIAXone 2 GM/NS 100 ML 2 GM/100 ML BAG IVPB (08:23)
[2024-04-30] MEDS: ENOXAPARIN 40 MG/0.4 ML SYRINGE SUB-Q (08:23)
[2024-04-30] MEDS: predniSONE 10 MG TABLET PO ×2 (08:23→16:53)
[2024-04-30] MEDS: ASPIRIN 81 MG ENTERIC TABLET PO (08:23)
[2024-04-30] MEDS: buPROPion HCL 100 MG TABLET PO ×2 (08:23→21:01)
--- NOTE | 2024-04-30 11:23 | P.PNUR_ITS ---
Progress Note: A&P Assessment and Plan (1) Sepsis: Code(s): A41.9 - Sepsis, unspecified organism Status: Acute (2) Urinary tract infection: Code(s): N39.0 - Urinary tract infection, site not specified Status: Acute (3) Acute prostatitis: Code(s): N41.0 - Acute prostatitis Status: Acute Plan * Agree with culture-directed antibiotics for + blood and urine cultures * Patient previously had used BPH medication (Flomax), consider restarting plam to review with him at outpatient follow-up appointment * Follow-up with Dr. Art as an outpatient Subjective Subjective Date/Time Seen: 04/30/24 11:23 Interval history: Patient states feeling better. He states he is voiding well since catheter. Objective Data Vital Signs Vital Signs: Vital Signs - 24 hr 04/29/24 16:00 04/29/24 22:00 04/30/24 05:42 Temperature 36.7 C 36.2 C L 36.1 C L Pulse Rate 87 58 L 50 L Respiratory Rate 18 16 16 Blood Pressure 123/76 145/81 H 135/79 Pulse Oximetry 98 100 100 Intake/Output Intake/Output: Intake & Output 04/27/24 04/28/24 04/29/24 04/30/24 23:59 23:59 23:59 23:59 Intake Total 4160 4487 1350 1150 Output Total 2500 2750 1800 Balance 1660 1737 -450 1150 Meds/Results Medications: Active Medications Generic Name Dose Route Start Last Admin Trade Name Freq PRN Reason Stop Dose Admin Aspirin 81 mg 04/28/24 09:00 04/30/24 08:23 Aspirin 81 Mg Enteric Tablet PO 81 mg DAILY CHRIS Administration Atorvastatin Calcium 40 mg 04/27/24 21:00 04/29/24 21:06 Atorvastatin 40 Mg Tablet PO 40 mg HS CHRIS Administration Bupropion HCl 100 mg 04/27/24 12:45 04/30/24 08:23 Bupropion Hcl 100 Mg Tablet PO 100 mg Q12HR CHRIS Administration Calcium Carbonate 200 mg 04/29/24 04:30 04/30/24 02:41 Calcium Carbonate (Tums) 500 Mg (200 Mg Elemental) PO 200 mg Q6H PRN Administration Indigestion Enoxaparin Sodium 40 mg 04/28/24 09:00 04/30/24 08:23 Enoxaparin 40 Mg/0.4 Ml Syringe SUB-Q 40 mg DAILY CHRIS Administration Hydromorphone HCl 0.5 mg 04/26/24 20:51 04/28/24 20:55 Hydromorphone Hcl Inj (*Crx) 1 Mg/Ml Syr IV PUSH 0.5 mg Q4H PRN Administration Pain Rated 7-10 Ibuprofen 800 mg in 200 mls @ 400 mls/hr 04/27/24 03:14 04/30/24 02:20 Caldolor 800 Mg/200 Ml IVPB 400 mls/hr Q6H PRN Administration Pain Rated 4-6/fever Ceftriaxone Sodium 2 gm in 100 mls @ 200 mls/hr 04/29/24 13:00 04/30/24 08:23 Rocephin 2 Gm/Ns 100 Ml IVPB 200 mls/hr DAILY CHRIS Administration Ondansetron HCl 4 mg 04/26/24 20:51 04/30/24 02:21 Ondansetron Inj 4 Mg/2 Ml Vial IV PUSH 4 mg Q4H PRN Administration Nausea Pantoprazole Sodium 40 mg 04/30/24 09:00 Pantoprazole 40 Mg Tablet PO Q12HR CHRIS Prednisone 10 mg 04/27/24 17:00 04/30/24 08:23 Prednisone 10 Mg Tablet PO 10 mg BID CHRIS Administration Radiology Results: ITS Impressions Abdomen/Pelvis CT 04/26/24 18:34 IMPRESSION: 1. Tiny stone in the right kidney lower pole. 2. Constipation 3. Enlarged prostate. Thickened wall of the urinary bladder which may indicate cystitis. 4. Right fat-containing small inguinal hernia. 5. Soft tissue density in the left side of the pelvis which may be a lymph nodes. Follow-up advised. 6. Small sliding hiatus hernia. Chest X-Ray 04/26/24 18:47 IMPRESSION: Left basilar atelectasis versus pneumonia.
[2024-04-30] MEDS: PANTOPRAZOLE 40 MG TABLET PO ×2 (11:57→21:01)
--- NOTE | 2024-04-30 12:29 | P.PNIM_ITS ---
Progress Note: A&P Assessment and Plan (1) Sepsis: Code(s): A41.9 - Sepsis, unspecified organism Status: Acute Assessment and Plan: 04/30/2024 Likely secondary to prostatitis Continue with antibiotics. Monitor blood urine culture. (2) Prostatitis: Qualifiers: Prostatitis type: chronic Qualified Code(s): N41.1 - Chronic prostatitis Code(s): N41.9 - Inflammatory disease of prostate, unspecified Status: Acute Assessment and Plan: 04/30/2024 Currently on [facility] following f/u on urine culture (3) Urinary tract infection: Code(s): N39.0 - Urinary tract infection, site not specified Status: Acute Assessment and Plan: Patient started on Merrem Await cultures (4) Rheumatoid arthritis, unspecified: Code(s): M06.9 - Rheumatoid arthritis, unspecified Status: Acute Assessment and Plan: Hold methotrexate Continue prednisone to avoid adrenal crisis Patient receives symphony infusions every 2 months (5) PRASHANTH (obstructive sleep apnea): Code(s): G47.33 - Obstructive sleep apnea (adult) (pediatric) Status: Acute Assessment and Plan: CPAP at nighttime (6) Essential (primary) hypertension: Code(s): I10 - Essential (primary) hypertension Status: Acute Assessment and Plan: Restart as needed (7) GERD (gastroesophageal reflux disease): Code(s): K21.9 - Gastro-esophageal reflux disease without esophagitis Status: Acute Assessment and Plan: PPI Plan 04/30/2024 Klebsiella oxytoca bacteremia from prostatitis Blood and urine culture positive Continue Meropenem pending sensitivity urology following Possible discharge in a.m. DVT prophylaxis on Sq Lovenox Subjective Date/time seen: 04/30/24 12:29 Interval history: Patient was seen during the morning rounds today. Patient is feeling much better now. No fever and chills. No shortness of breath or chest pain. No abdominal pain, nausea, no vomiting Review of Systems Review of Systems: Chills, fevers, urinary retention Exam Narrative: Laying in a stretcher Const: General: comfortable, no acute distress, well developed, alert, awake, ill appearing acutely, tired appearing and average body habitus Nutritional Appearance: average body habitus Orientation/consciousness: patient oriented x3 HENMT: Head: normal to inspection, normocephalic and atraumatic Ears: hearing grossly normal bilaterally Face/Nose/Sinus: normal facial exam Face and sinus: normal facial exam Eyes: General: appearance normal, both eyes and all related structures Pupils: Equal, round and reactive pupils present EOM: EOMs intact bilaterally Neck: Neck: full ROM, no lymphadenopathy and no JVD Thyroid: thyroid normal Lymphatic: no lymphadenopathy noted Resp: Effort & Inspection: normal respiratory effort and able to speak in complete sentences Auscultation: clear to auscultation bilaterally Cardio: Jugular venous distension: no JVD Rate: regular rate Rhythm: regular rhythm Heart sounds: S1 normal heart sound present and S2 normal heart sound present : General: Yes deferred Skin: Rashes: no rashes Wounds: no wounds Neuro: General: patient oriented x3, CN's II-XI intact bilaterally and Unable to assess gait Cranial nerves: Yes CN's II-XII intact bilaterally and Yes E qual, round and reactive pupils present Cognition (Neuro): normal cognition Speech: normal speech Gait exam (Neuro): Unable to assess gait Motor exam (neuro): 5/5 motor strength present throughout Extrem: General: normal to inspection, full ROM, no joint enlargement and no pedal edema Objective Data Vital Signs Vital Signs: Vital Signs - 24 hr 04/29/24 16:00 04/29/24 22:00 04/30/24 05:42 Temperature 36.7 C 36.2 C L 36.1 C L Pulse Rate 87 58 L 50 L Respiratory Rate 18 16 16 Blood Pressure 123/76 145/81 H 135/79 Pulse Oximetry 98 100 100 Intake/Output Intake/Output: Intake & Output 04/27/24 04/28/24 04/29/24 04/30/24 23:59 23:59 23:59 23:59 Intake Total 4160 4487 1350 1150 Output Total 2500 2750 1800 Balance 1660 1737 -450 1150 Meds/Results Medications: Active Medications Generic Name Dose Route Start Last Admin Trade Name Isrealq PRN Reason Stop Dose Admin Aspirin 81 mg 04/28/24 09:00 04/30/24 08:23 Aspirin 81 Mg Enteric Tablet PO 81 mg DAILY CHRIS Administration Atorvastatin Calcium 40 mg 04/27/24 21:00 04/29/24 21:06 Atorvastatin 40 Mg Tablet PO 40 mg HS CHRIS Administration Bupropion HCl 100 mg 04/27/24 12:45 04/30/24 08:23 Bupropion Hcl 100 Mg Tablet PO 100 mg Q12HR CHRIS Administration Calcium Carbonate 200 mg 04/29/24 04:30 04/30/24 02:41 Calcium Carbonate (Tums) 500 Mg (200 Mg Elemental) PO 200 mg Q6H PRN Administration Indigestion Enoxaparin Sodium 40 mg 04/28/24 09:00 04/30/24 08:23 Enoxaparin 40 Mg/0.4 Ml Syringe SUB-Q 40 mg DAILY CHRIS Administration Hydromorphone HCl 0.5 mg 04/26/24 20:51 04/28/24 20:55 Hydromorphone Hcl Inj (*Crx) 1 Mg/Ml Syr IV PUSH 0.5 mg Q4H PRN Administration Pain Rated 7-10 Ibuprofen 800 mg in 200 mls @ 400 mls/hr 04/27/24 03:14 04/30/24 02:20 Caldolor 800 Mg/200 Ml IVPB 400 mls/hr Q6H PRN Administration Pain Rated 4-6/fever Ceftriaxone Sodium 2 gm in 100 mls @ 200 mls/hr 04/29/24 13:00 04/30/24 08:23 Rocephin 2 Gm/Ns 100 Ml IVPB 200 mls/hr DAILY CHRIS Administration Ondansetron HCl 4 mg 04/26/24 20:51 04/30/24 02:21 Ondansetron Inj 4 Mg/2 Ml Vial IV PUSH 4 mg Q4H PRN Administration Nausea Pantoprazole Sodium 40 mg 04/30/24 09:00 04/30/24 11:57 Pantoprazole 40 Mg Tablet PO 40 mg Q12HR CHRIS Administration Prednisone 10 mg 04/27/24 17:00 04/30/24 08:23 Prednisone 10 Mg Tablet PO 10 mg BID CHRIS Administration Radiology Results: ITS Impressions Abdomen/Pelvis CT 04/26/24 18:34 IMPRESSION: 1. Tiny stone in the right kidney lower pole. 2. Constipation 3. Enlarged prostate. Thickened wall of the urinary bladder which may indicate cystitis. 4. Right fat-containing small inguinal hernia. 5. Soft tissue density in the left side of the pelvis which may be a lymph nodes. Follow-up advised. 6. Small sliding hiatus hernia. Chest X-Ray 04/26/24 18:47 IMPRESSION: Left basilar atelectasis versus pneumonia.
[2024-04-30 14:00] VITALS: BP 146/62; PULSE 76; RESP 18; TEMP 37.2; O2SAT 98
[2024-04-30 20:00] VITALS: PULSE 61; RESP 16; O2SAT 98
[2024-04-30] MEDS: ATORVASTATIN 40 MG TABLET PO (21:01)
[2024-04-30 21:34] VITALS: BP 135/84; PULSE 61; RESP 16; TEMP 36.6; O2SAT 98
[2024-05-01 02:25] VITALS: PULSE 66; O2SAT 98
[2024-05-01 05:39] VITALS: BP 157/88; PULSE 63; RESP 16; TEMP 36.4; O2SAT 99
[2024-05-01 06:42] LABS: Hemoglobin 10.8 g/dL (14.0-18.0); Mean Corpuscular HGB Conc 32.7 g/dl (32-36); Mean Corpuscular Hemoglobin 30.5 pg (26-34); Mean Corpuscular Volume 93.2 fl (80-100); Mean Platelet Volume 10.8 fl (7.4-10.4); Platelet Count Result 139 k/mm3 (150-375); Red Blood Count 3.54 M/mm3 (4.6-6.20); Red Cell Distribution Width 14.2 % (11.5-14.5); White Blood Count 8.1 K/mm3 (4.5-10.0)
[2024-05-01] MEDS: PANTOPRAZOLE 40 MG TABLET PO (08:31)
[2024-05-01] MEDS: predniSONE 10 MG TABLET PO (08:31)
[2024-05-01] MEDS: buPROPion HCL 100 MG TABLET PO (08:31)
[2024-05-01] MEDS: ASPIRIN 81 MG ENTERIC TABLET PO (08:31)
[2024-05-01] MEDS: cefTRIAXone 2 GM/NS 100 ML 2 GM/100 ML BAG IVPB (08:32)
[2024-05-01] MEDS: ENOXAPARIN 40 MG/0.4 ML SYRINGE SUB-Q (08:40)
--- NOTE | 2024-05-01 10:27 | P.PNIM_ITS ---
Progress Note: A&P Assessment and Plan (1) Sepsis: Code(s): A41.9 - Sepsis, unspecified organism Status: Acute Assessment and Plan: 04/30/2024 Likely secondary to prostatitis Continue with antibiotics. Monitor blood urine culture. (2) Prostatitis: Qualifiers: Prostatitis type: chronic Qualified Code(s): N41.1 - Chronic prostatitis Code(s): N41.9 - Inflammatory disease of prostate, unspecified Status: Acute Assessment and Plan: 04/30/2024 Currently on [facility] following f/u on urine culture (3) Urinary tract infection: Code(s): N39.0 - Urinary tract infection, site not specified Status: Acute Assessment and Plan: Patient started on Merrem Await cultures (4) Rheumatoid arthritis, unspecified: Code(s): M06.9 - Rheumatoid arthritis, unspecified Status: Acute Assessment and Plan: Hold methotrexate Continue prednisone to avoid adrenal crisis Patient receives symphony infusions every 2 months (5) PRASHANTH (obstructive sleep apnea): Code(s): G47.33 - Obstructive sleep apnea (adult) (pediatric) Status: Acute Assessment and Plan: CPAP at nighttime (6) Essential (primary) hypertension: Code(s): I10 - Essential (primary) hypertension Status: Acute Assessment and Plan: Restart as needed (7) GERD (gastroesophageal reflux disease): Code(s): K21.9 - Gastro-esophageal reflux disease without esophagitis Status: Acute Assessment and Plan: PPI Plan 04/30/2024 Klebsiella oxytoca bacteremia from prostatitis Blood and urine culture positive Continue Meropenem pending sensitivity urology following Possible discharge in a.m. DVT prophylaxis on Sq Lovenox Subjective Date/time seen: 05/01/24 10:27 Interval history: Patient has Klebsiella oxytoca in the urine. Exam Narrative: Laying in a stretcher Const: General: comfortable, no acute distress, well developed, alert, awake, ill appearing acutely, tired appearing and average body habitus Nutritional Appearance: average body habitus Orientation/consciousness: patient oriented x3 HENMT: Head: normal to inspection, normocephalic and atraumatic Ears: hearing grossly normal bilaterally Face/Nose/Sinus: normal facial exam Face and sinus: normal facial exam Eyes: General: appearance normal, both eyes and all related structures Pup ils: Equal, round and reactive pupils present EOM: EOMs intact bilaterally Neck: Neck: full ROM, no lymphadenopathy and no JVD Thyroid: thyroid normal Lymphatic: no lymphadenopathy noted Resp: Effort & Inspection: normal respiratory effort and able to speak in complete sentences Auscultation: clear to auscultation bilaterally Cardio: Jugular venous distension: no JVD Rate: regular rate Rhythm: regular rhythm Heart sounds: S1 normal heart sound present and S2 normal heart sound present : General: Yes deferred Skin: Rashes: no rashes Wounds: no wounds Neuro: General: patient oriented x3, CN's II-XI intact bilaterally and Unable to assess gait Cranial nerves: Yes CN's II-XII intact bilaterally and Yes Equal, round and reactive pupils present Cognition (Neuro): normal cognition Speech: normal speech Gait exam (Neuro): Unable to assess gait Motor exam (neuro): 5/5 motor strength present throughout Extrem: General: normal to inspection, full ROM, no joint enlargement and no pedal edema Objective Data Vital Signs Vital Signs: Vital Signs - 24 hr 04/30/24 14:00 04/30/24 20:00 04/30/24 21:34 Temperature 98.9 F 97.8 F Pulse Rate 76 61 61 Respiratory Rate 18 16 16 Blood Pressure 146/62 H 135/84 Pulse Oximetry 98 98 98 Oxygen Delivery Room Air 05/01/24 02:25 05/01/24 05:39 Temperature 97.6 F Pulse Rate 66 63 Respiratory Rate 16 Blood Pressure 157/88 H Pulse Oximetry 98 99 Oxygen Delivery Intake/Output Intake/Output: Intake & Output 04/28/24 04/29/24 04/30/24 05/01/24 23:59 23:59 23:59 23:59 Intake Total 4487 1350 2720 990 Output Total 2750 1800 Balance 1737 -450 2720 990 Meds/Results Medications: Active Medications Generic Name Dose Route Start Last Admin Trade Name Freq PRN Reason Stop Dose Admin Aspirin 81 mg 04/28/24 09:00 05/01/24 08:31 Aspirin 81 Mg Enteric Tablet PO 81 mg DAILY CHRIS Administration Atorvastatin Calcium 40 mg 04/27/24 21:00 04/30/24 21:01 Atorvastatin 40 Mg Tablet PO 40 mg HS CHRIS Administration Bupropion HCl 100 mg 04/27/24 12:45 05/01/24 08:31 Bupropion Hcl 100 Mg Tablet PO 100 mg Q12HR CHRIS Administration Calcium Carbonate 200 mg 04/29/24 04:30 04/30/24 02:41 Calcium Carbonate (Tums) 500 Mg (200 Mg Elemental) PO 200 mg Q6H PRN Administration Indigestion Enoxaparin Sodium 40 mg 04/28/24 09:00 05/01/24 08:40 Enoxaparin 40 Mg/0.4 Ml Syringe SUB-Q 40 mg DAILY CHRIS Administration Hydromorphone HCl 0.5 mg 04/26/24 20:51 04/28/24 20:55 Hydromorphone Hcl Inj (*Crx) 1 Mg/Ml Syr IV PUSH 0.5 mg Q4H PRN Administration Pain Rated 7-10 Ibuprofen 800 mg in 200 mls @ 400 mls/hr 04/27/24 03:14 05/01/24 00:14 Caldolor 800 Mg/200 Ml IVPB Infused Q6H PRN Infusion Pain Rated 4-6/fever Ceftriaxone Sodium 2 gm in 100 mls @ 200 mls/hr 04/29/24 13:00 05/01/24 08:32 Rocephin 2 Gm/Ns 100 Ml IVPB 200 mls/hr DAILY CHRIS Administration Ondansetron HCl 4 mg 04/26/24 20:51 04/30/24 02:21 Ondansetron Inj 4 Mg/2 Ml Vial IV PUSH 4 mg Q4H PRN Administration Nausea Pantoprazole Sodium 40 mg 04/30/24 09:00 05/01/24 08:31 Pantoprazole 40 Mg Tablet PO 40 mg Q12HR CHRIS Administration Prednisone 10 mg 04/27/24 17:00 05/01/24 08:31 Prednisone 10 Mg Tablet PO 10 mg BID CHRIS Administration Radiology Results: ITS Impressions Abdomen/Pelvis CT 04/26/24 18:34 IMPRESSION: 1. Tiny stone in the right kidney lower pole. 2. Constipation 3. Enlarged prostate. Thickened wall of the urinary bladder which may indicate cystitis. 4. Right fat-containing small inguinal hernia. 5. Soft tissue density in the left side of the pelvis which may be a lymph nodes. Follow-up advised. 6. Small sliding hiatus hernia. Chest X-Ray 04/26/24 18:47 IMPRESSION: Left basilar atelectasis versus pneumonia. Labs Labs: Laboratory Results - last 24 hr 05/01/24 06:34 WBC 8.1 RBC 3.54 L Hgb 10.8 L Hct 33.0 L MCV 93.2 MCH 30.5 MCHC 32.7 RDW 14.2 Plt Count 139 L MPV 10.8 H
--- NOTE | 2024-05-01 11:50 | P.PNUR_ITS ---
Progress Note: A&P Assessment and Plan (1) BPH loc w urin obs/LUTS: Code(s): N40.1 - Benign prostatic hyperplasia with lower urinary tract symptoms Status: Acute (2) Acute prostatitis: Code(s): N41.0 - Acute prostatitis Status: Acute Assessment and Plan: * A wait final sensitivities on blood culture. If similar to urine I would recommend discharge on quinolone for 10 days * I have spoken with him and recommended long-term finasteride to reduce the risk of prostate related infections in the future. He is agreeable. Subjective Subjective Date/Time Seen: 05/01/24 11:50 Interval history: Comfortable, continues to void well Review of Systems Cardiovascular: Cardiovascular: Denies chest pain, Denies lightheadedness, Denies palpitations and Denies dyspnea Respiratory: Respiratory: Denies dyspnea Gastrointestinal: Gastrointestinal: Denies diarrhea, Denies nausea and Denies vomiting Genitourinary: Genitourinary: Denies hematuria and Denies dysuria Endocrine: Endocrine: Denies palpitations Exam Const: General: no acute distress Resp: Effort & Inspection: normal respiratory effort GI: Inspection: non-distended GI Palp: No abdominal tenderness and No Guarding due to palpation present (GI) Auscultation: normal bowel sounds Objective Data Vital Signs Vital Signs: Vital Signs - 24 hr 04/30/24 14:00 04/30/24 20:00 04/30/24 21:34 Temperature 98.9 F 97.8 F Pulse Rate 76 61 61 Respiratory Rate 18 16 16 Blood Pressure 146/62 H 135/84 Pulse Oximetry 98 98 98 Oxygen Delivery Room Air 05/01/24 02:25 05/01/24 05:39 Temperature 97.6 F Pulse Rate 66 63 Respiratory Rate 16 Blood Pressure 157/88 H Pulse Oximetry 98 99 Oxygen Delivery Intake/Output Intake/Output: Intake & Output 04/28/24 04/29/24 04/30/24 05/01/24 23:59 23:59 23:59 23:59 Intake Total 4487 1350 2720 1540 Output Total 2750 1800 Balance 1737 -450 2720 1540 Meds/Results Medications: Active Medications Generic Name Dose Route Start Last Admin Trade Name Freq PRN Reason Stop Dose Admin Aspirin 81 mg 04/28/24 09:00 05/01/24 08:31 Aspirin 81 Mg Enteric Tablet PO 81 mg DAILY CHRIS Administration Atorvastatin Calcium 40 mg 04/27/24 21:00 04/30/24 21:01 Atorvastatin 40 Mg Tablet PO 40 mg HS CHRIS Administration Bupropion HCl 100 mg 04/27/24 12:45 05/01/24 08:31 Bupropion Hcl 100 Mg Tablet PO 100 mg Q12HR CHRIS Administration Calcium Carbonate 200 mg 04/29/24 04:30 04/30/24 02:41 Calcium Carbonate (Tums) 500 Mg (200 Mg Elemental) PO 200 mg Q6H PRN Administration Indigestion Enoxaparin Sodium 40 mg 04/28/24 09:00 05/01/24 08:40 Enoxaparin 40 Mg/0.4 Ml Syringe SUB-Q 40 mg DAILY CHRIS Administration Hydromorphone HCl 0.5 mg 04/26/24 20:51 04/28/24 20:55 Hydromorphone Hcl Inj (*Crx) 1 Mg/Ml Syr IV PUSH 0.5 mg Q4H PRN Administration Pain Rated 7-10 Ibuprofen 800 mg in 200 mls @ 400 mls/hr 04/27/24 03:14 05/01/24 00:14 Caldolor 800 Mg/200 Ml IVPB Infused Q6H PRN Infusion Pain Rated 4-6/fever Ceftriaxone Sodium 2 gm in 100 mls @ 200 mls/hr 04/29/24 13:00 05/01/24 08:32 Rocephin 2 Gm/Ns 100 Ml IVPB 200 mls/hr DAILY CHRIS Administration Ondansetron HCl 4 mg 04/26/24 20:51 04/30/24 02:21 Ondansetron Inj 4 Mg/2 Ml Vial IV PUSH 4 mg Q4H PRN Administration Nausea Pantoprazole Sodium 40 mg 04/30/24 09:00 05/01/24 08:31 Pantoprazole 40 Mg Tablet PO 40 mg Q12HR CHRIS Administration Prednisone 10 mg 04/27/24 17:00 05/01/24 08:31 Prednisone 10 Mg Tablet PO 10 mg BID CHRIS Administration Radiology Results: ITS Impressions Abdomen/Pelvis CT 04/26/24 18:34 IMPRESSION: 1. Tiny stone in the right kidney lower pole. 2. Constipation 3. Enlarged prostate. Thickened wall of the urinary bladder which may indicate cystitis. 4. Right fat-containing small inguinal hernia. 5. Soft tissue density in the left side of the pelvis which may be a lymph nodes. Follow-up advised. 6. Small sliding hiatus hernia. Chest X-Ray 04/26/24 18:47 IMPRESSION: Left basilar atelectasis versus pneumonia. Labs Labs: Laboratory Results - last 24 hr 05/01/24 06:34 WBC 8.1 RBC 3.54 L Hgb 10.8 L Hct 33.0 L MCV 93.2 MCH 30.5 MCHC 32.7 RDW 14.2 Plt Count 139 L MPV 10.8 H
--- NOTE | 2024-05-01 16:08 | PM.DS ---
DS: Admitting Diagnosis Discharge Date 05/01/2024 Admitting Diagnosis Acute prostatitis DS: Discharge Diagnosis Discharge Diagnosis (1) Sepsis: Code(s): A41.9 - Sepsis, unspecified organism Status: Acute Assessment and Plan: 04/30/2024 Likely secondary to prostatitis Discharged with levofloxacin 750 mg for 10 days (2) Prostatitis: Qualifiers: Prostatitis type: chronic Qualified Code(s): N41.1 - Chronic prostatitis Code(s): N41.9 - Inflammatory disease of prostate, unspecified Status: Acute Assessment and Plan: Discharged with levofloxacin 750 mg for 10 days (3) Urinary tract infection: Code(s): N39.0 - Urinary tract infection, site not specified Status: Acute Assessment and Plan: Discharged with levofloxacin 750 mg for 10 days (4) Rheumatoid arthritis, unspecified: Code(s): M06.9 - Rheumatoid arthritis, unspecified Status: Acute Assessment and Plan: Hold methotrexate in-hospital but will be continued upon discharge Continue prednisone to avoid adrenal crisis Patient receives symphony infusions every 2 months (5) PRASHANTH (obstructive sleep apnea): Code(s): G47.33 - Obstructive sleep apnea (adult) (pediatric) Status: Acute Assessment and Plan: CPAP at nighttime (6) Essential (primary) hypertension: Code(s): I10 - Essential (primary) hypertension Status: Acute Assessment and Plan: Restart as needed (7) GERD (gastroesophageal reflux disease): Code(s): K21.9 - Gastro-esophageal reflux disease without esophagitis Status: Acute Assessment and Plan: PPI Plan 04/30/2024 Klebsiella oxytoca bacteremia from prostatitis Blood and urine culture positive Discharged with levofloxacin 750 mg for 10 days DS: Summary Hospital Course Hospital Course: This is a 63 year old male with PMH of RA, UTI, prostatitis who presents to the ED for chief complaint of suprapubic abdominal pain and difficulty urinating times 1-2 days. Patient reports the symptoms started to worsen last night and he has been having episodes of urination where he is only able to dribble out a few drops. Patient reports episodes of dizziness as well as several episodes of N/V. States he is unable to keep down anything including water. States he has had prostatitis and UTIs in the past and feels that this is most likely a UTI. He does take immunomodulators for RA. Klebsiella oxytoca (Blood and urine culture positive )bacteremia from prostatitis Discharged with levofloxacin 750 mg for 10 days Status at Discharge Cognitive/behavioral status at discharge: Stable Time Spent with Patient Time attestation: Total time spent providing and/or coordinating discharge services: 45 minute DS: Data Data Completed and Pending Labs on day of discharge: Labs from last 24 hours 05/01/24 06:34 WBC 8.1 RBC 3.54 L Hgb 10.8 L Hct 33.0 L MCV 93.2 MCH 30.5 MCHC 32.7 RDW 14.2 Plt Count 139 L MPV 10.8 H Preliminary micro results at discharge 04/26/24 18:53 Blood Culture - Preliminary Blood Klebsiella oxytoca Discharge Plan Discharge Attending physician on discharge: Edward Sheldon Consulting providers: Lloyd Underwood Discharging Clinician: Edward Sheldon Anticipated Discharge Date/Time: 05/01/24 16:18 Patient Disposition: Home, Self-Care Activity: as tolerated Diet: regular Discharge Instructions: Please complete levofloxacin 750 mg once a day for 10 days Contact your doctor or call 911 and come to the Emergency Room if you have any type of pain, dysuria, hematuria. Follow-up with your primary care provider and Urology in 1-2 weeks. Please call for appointment. Thank you for using [facility] for your health care needs. Patient Instructions: Antibiotic Form Patient Language: [place] Stand Alone Forms: General Discharge Information Follow-up/Referrals: David Art MD [Physician] - Call for Appointment (3-4 weeks) Discharge Medications: New finasteride 5 mg tablet 5 mg PO DAILY Qty: 90 0RF levofloxacin 750 mg tablet 750 mg PO DAILY Qty: 10 0RF Continued celecoxib [Celebrex] 200 mg capsule 200 mg PO BID methotrexate sodium 2.5 mg tablet 2.5 mg PO WEEKLY Rx Instructions: Takes 6 tablets by mouth every week multivitamin Tablet 1 tablet PO DAILY gabapentin 300 mg capsule 300 mg PO TID carvedilol [Coreg] 12.5 mg tablet 12.5 mg PO Q12H atorvastatin 40 mg tablet 40 mg PO HS hydrochlorothiazide 25 mg tablet 25 mg PO DAILY ferrous sulfate 324 mg (65 mg iron) tablet,delayed release (DR/EC) 324 mg PO DAILY prednisone 5 mg tablet 10 mg PO BID bupropion HCl 100 mg tablet 100 mg PO .q12 folic acid 1 mg tablet 1 mg PO DAILY glucosamine sulfate [Glucosamine] 500 mg Tablet 500 mg PO DAILY Refresh Optive 0.5-0.9 % Drops 1 drp OPHTHALMIC (EYE) BID Ocuvite Adult 50 Plus 250-5-1 mg Capsule 1 cap PO EVERY OTHER DAY icosapent ethyl [Vascepa] 1 gram Capsule 2 g PO BID magnesium citrate 100 mg Tablet 100 mg PO EVERY OTHER DAY metaxalone [Skelaxin] 800 mg tablet 800 mg PO TID PRN (Reason: muscle pain) Qty: 10 0RF potassium 99 mg tablet 49.5 mg PO BID cholecalciferol (vitamin D3) [Vitamin D3] 10 mcg (400 unit) Capsule 10 mcg PO DAILY Simponi ARIA 12.5 mg/mL Solution See Rx Instructions .ROUTE .COMPLEX Rx Instructions: 180 mg intravenously ;administer over 30 mins, every 8 weeks turmeric 1,000 mg PO DAILY pantoprazole 40 mg tablet,delayed release (DR/EC) 40 mg PO BID Qty: 180 4RF tizanidine 4 mg tablet 4 mg PO .qhs Qty: 90 2RF cetirizine [Zyrtec] 10 mg tablet 10 mg PO DAILY Qty: 90 3RF aspirin 81 mg tablet,delayed release (DR/EC) 81 mg PO DAILY Qty: 90 3RF Date of admission: 04/27/24 07:47 Primary Care Provider: Tomas Hyman Admitting Provider: Ce Jernigan V. Attending physician on admission: Ce Jernigan V. Condition: Stable
== END 2024-05-01 17:13 | disposition home or self-care (01) | DRG 872 ==
LOC: ANHED 18:46 → ANHIMU 22:13 → ANH3MEDSUR 04-28 13:35
PROVIDERS: Emergency Medicine; Internal Medicine; Admitting Provider Internal Medicine; Emergency Provider Physician Assistant; PCP Family Medicine; Visit Provider General Practice
DX: A41.89 Other specified sepsis (principal); N39.0 Urinary tract infection, site not specified; N41.0 Acute prostatitis; I77.819 Aortic ectasia, unspecified site; I10 Essential (primary) hypertension; N40.1 Benign prostatic hyperplasia with lower urinary tract symptoms; E78.2 Mixed hyperlipidemia; B96.1 Klebsiella pneumoniae [K. pneumoniae] as the cause of diseases classified elsewhere; K21.9 Gastro-esophageal reflux disease without esophagitis; M85.80 Other specified disorders of bone density and structure, unspecified site; M06.9 Rheumatoid arthritis, unspecified; R13.10 Dysphagia, unspecified; Z79.82 Long term (current) use of aspirin; G47.33 Obstructive sleep apnea (adult) (pediatric)
CPT/HCPCS: 36415; 71046; 74177; 80053; 81001; 83605; 83690; 83735; 85025; 85027; 85055; 85610; 85730; 86140; 87040; 87086; 87186; 93005; 96361; 96365; 96368; 96375; 96376; 99285; A9270; G0378; J0696; J1100; J1171; J1650; J1741; J2185; J2405; J7030; J7120; J7512; Q9967

== ENCOUNTER 2024-05-03 08:31 | Emergency (ER) | payer MEDICARE, OTHER, SELFPAY ==
--- NOTE | ~2024-05-03 | CT_ITS ---
EXAMINATION: CT abdomen pelvis w con DATE: 05/03/2024 13:09 INDICATION: Prostatitis. History of sepsis. TECHNIQUE: Computed tomography (CT) of the abdomen and pelvis was performed with 100 CC Omnipaque 350 intravenous contrast. Automated exposure control and iterative reconstruction technique were employe d. Exam dose: 1111.17 mGy-cm total exam DLP. COMPARISON: 04/26/2024 CT abdomen pelvis FINDINGS: There is minimal bilateral dependent lower lobe atelectasis, greater on the left. Normal heart size. Trace pericardial effusion. Coronary artery calcifications. Small sliding hiatal hernia Suspected sludge in gallbladder. No gallbladder wall thickening or pericholecystic fluid or fat stran ding. No hepatic, splenic, pancreatic, adrenal or suspicious renal space occupying mass lesion is evident. Approximately 2 mm lower pole right renal nonobstructing calculus. No ureteral calculus or hydrourete ronephrosis is noted on either side. Mild prostate enlargement. The urinary bladder is unremarkable. There is a suture line at the rectum. Numerous diverticula of the sigmoid and descending colon and to a lesser extent the hepatic flexure a jessica. No CT evidence of diverticulitis. No bowel obstruction, bowel wall thickening, pneumatosis or in traperitoneal free air is detected. Normal appendix. Normal caliber of the abdominal aorta. No intraperitoneal or retroperitoneal or pelvic mass lesion or adenopathy or ascites. Small fat-containing right inguinal hernia. Very small fat-containing umbilical hernia. Severe degenerative disc disease at L2-3. No suspicious osteolytic or osteoblastic lesions. IMPRESSION: Suture line at rectum Mild prostate enlargement Small sliding hiatal hernia Suggestion of gallbladder sludge Diverticulosis of the left and right colon; no evidence of diverticulitis Normal appendix Reviewed, dictated and finalized at [facility] Reviewed, dictated and finalized at [facility] [employer]
[2024-05-03 08:33] VITALS: BP 108/68; PULSE 131; RESP 20; TEMP 36.5; O2SAT 97
[2024-05-03] MEDS: LACTATED RINGERS 1,000 ML 999 ML IV CONT ×2 (12:17→12:40)
--- NOTE | 2024-05-03 12:23 | ED_ITS ---
HPI - Recheck/Abnormal Lab/Rx General Chief Complaint: Recheck/Abnormal Lab/Rx Stated Complaint: kidney infection Time Seen by Provider: 05/03/24 11:58 History of Present Illness HPI narrative: 63-year-old male presenting to the emergency department for evaluation of back pain, difficulty urinating, suprapubic pain. He was just discharged from this facility 2 days prior from an admission from sepsis from bacterial prostatitis with Klebsiella oxytocia of specimen. Patient was treated on inpatient basis with meropenem and later transition to p.o. Levaquin which he has been taking for last 2 days. He was cleared and discharged from the hospitalist team after inpatient evaluation with Urology. Patient did have a Roper catheter on previous admission that was DC prior to discharge. He states he was able to urinate yesterday but when he went to the bathroom today was having difficulty getting any stream started. Endorses subjective chills and fever as well as back and suprapubic pain. Denies any chest pain, difficulty breathing, nausea vomiting. Has been taking his antibiotics as well as his medications for rheumatoid arthritis. Related Data Home Medications ?Medication ?Instructions ?Recorded ?Confirmed ?Last Taken ?Type atorvastatin 40 mg tablet 40 mg PO HS 05/12/19 04/27/24 03/04/24 History bupropion HCl 100 mg tablet 100 mg PO .q12 05/12/19 04/27/24 03/04/24 History carvedilol 12.5 mg tablet (Coreg) 12.5 mg PO Q12H 05/12/19 04/27/24 03/04/24 History ferrous sulfate 324 mg (65 mg 324 mg PO DAILY 05/12/19 04/27/24 03/04/24 History iron) tablet,delayed release folic acid 1 mg tablet 1 mg PO DAILY 05/12/19 04/27/24 03/04/24 History gabapentin 300 mg capsule 300 mg PO TID 05/12/19 04/27/24 03/04/24 History hydrochlorothiazide 25 mg tablet 25 mg PO DAILY 05/12/19 04/27/24 03/04/24 History methotrexate sodium 2.5 mg tablet 2.5 mg PO WEEKLY 05/12/19 04/27/24 03/04/24 History multivitamin 1 tablet PO DAILY 05/12/19 04/27/24 03/04/24 History prednisone 5 mg tablet 10 mg PO BID 05/12/19 04/27/24 03/04/24 History carboxymethylcellulose 0.5 1 drp ophthalmic (eye) BID 06/01/19 04/27/24 03/04/24 History %-glycerin 0.9 % eye drops (Refresh Optive) glucosamine sulfate 500 mg tablet 500 mg PO DAILY 06/01/19 04/27/24 03/04/24 History (Glucosamine) icosapent ethyl 1 gram capsule 2 g PO BID 06/01/19 04/27/24 03/04/24 History (Vascepa) magnesium citrate 100 mg tablet 100 mg PO EVERY OTHER DAY 06/01/19 04/27/24 03/04/24 History vit C,E,zinc,copper-kgzmg1t 250 1 cap PO EVERY OTHER DAY 06/01/19 04/27/24 03/04/24 History mg-lutein 5 mg-zeaxanthin 1 mg capsule (Ocuvite Adult 50 Plus) celecoxib 200 mg capsule (Celebrex) 200 mg PO BID 12/22/20 04/27/24 03/04/24 History cholecalciferol (vitamin D3) 10 10 mcg PO DAILY 11/07/23 04/27/24 03/04/24 History mcg (400 unit) capsule (Vitamin D3) golimumab 12.5 mg/mL intravenous See Rx Instructions .Route .COMPLEX 11/07/23 04/27/24 04/04/24 History solution (Simponi ARIA) turmeric 1,000 mg PO DAILY 11/07/23 04/27/24 03/04/24 History potassium 99 mg tablet 49.5 mg PO BID 04/27/24 04/27/24 Unknown History Allergies Allergy/AdvReac Type Severity Reaction Status Date / Time tuberculin, purified protein Allergy Mild Unknown Verified 04/26/24 23:14 deriva hydroxychloroquine Allergy Unknown vision Verified 04/26/24 23:14 changes Review of Systems 2 Review of Systems: As reviewed above in HPI [facility] Past Medical History Medical History Erosive esophagitis Dysphagia GERD (gastroesophageal reflux disease) Dilated aortic root Osteopenia History of retinal detachment right eye Impaired fasting glucose Leukocytosis Enterococcus UTI History of gastroesophageal reflux (GERD) Chronic prostatitis Essential (primary) hypertension Left retinal detachment Mixed hyperlipidemia Rheumatoid arthritis, unspecified Surgical History Surgical History History of detached retina repair right eye History of tonsillectomy Family History Family History Mother Hypertension Cerebrovascular accident Father Patient's father is in good health Acute myocardial infarction Sibling No problems noted. Social History Social History Smoking status: Never smoker Second hand tobacco smoke exposure: No Alcohol intake: never Substance use: never Substance use type: does not use Do You Feel Safe in your Home?: Yes Lack of Transportation: No Lack of Food: Never True Current Housing: I Have Housing Concerned About Future Housing: No Difficulty Paying Gas/Electric Bills: No Difficulty Paying for Meds: No Currently Unemployed: No Education: Master's Degree or Higher Difficulty w/ Childcare or Family Care: No Living arrangements: with family Occupation/Education: retired Gender identity (if verbalized by the patient): Male Spiritual care concerns: No Agree to blood products: Yes Exam 2 Narrative: GENERAL: Uncomfortable appearing but not in any acute distress, answering questions appropriately. HEAD: [Normocephalic, atraumatic.] EYES: [PERRLA and EOMI.] ENT: Nares clear, no rhinorrhea or epistaxis. Mucous membranes moist. NECK: Supple. CHEST: [Clear to auscultation. No respiratory distress.] HEART: [Regular rate and rhythm]. No murmur heard. [Normal peripheral pulses.] ABDOMEN: Distended, soft, tender to palpation in the suprapubic region, [No rigidity or guarding] no inguinal hernias or testicular pain or swelling EXTREMITIES: Normal range of motion. [No edema.] SKIN: Warm, dry, no rash. NEURO: [No focal deficits]. Alert and oriented [x3.] PSYCH: [Normal mood and affect.] Course Vital Signs Vital signs: Vital Signs Temperature 36.5 C 05/03/24 08:33 Pulse Rate 131 H 05/03/24 08:33 Respiratory Rate 20 05/03/24 08:33 Blood Pressure 108/68 05/03/24 08:33 Pulse Oximetry 97 05/03/24 08:33 Oxygen Delivery Room Air 05/03/24 08:33 Temperature 36.5 C 05/03/24 08:33 Pulse Rate 77 05/03/24 16:32 Respiratory Rate 18 05/03/24 16:32 Blood Pressure 113/62 05/03/24 16:32 Pulse Oximetry 96 05/03/24 16:32 Oxygen Delivery Room Air 05/03/24 08:33 MDM - Recheck/Abnormal Lab/Rx MDM Narrative Medical decision making narrative: 63-year-old male presenting to the emergency department for evaluation of suprapubic and back pain as well as difficulty urinating a subjective fever and chills. He states his symptoms are feeling very similar to his prostatitis which she was just discharged after an inpatient stay over the holidays. He was discharged 2 days ago. Was seen and admitted for sepsis secondary to bacterial prostatitis with Klebsiella oxytocia that was pansensitive, was treated with meropenem inpatient and downgraded to Levaquin on p.o. discharge. Patient is tachycardic with a pulse of 131, blood pressure 108/68, no rub tachypnea fever or hypoxia. He is uncomfortable appearing but not any acute distress. He has distended abdomen suprapubic pain but no signs of peritonitis. Considerations presently are for urinary retention, recurrence of his infection or under treatment, less likely other pathology in the tract such as a kidney stone or other intra-abdominal process such as gastroenteritis. Workup was ordered including septic bundle including fluid resuscitation 2 L lactated Ringer bolus, blood cultures, CT of the abdomen pelvis with prostatitis attention. He was put back on Levaquin IV based on the cultures of his urine sample from discharge. He was given Dilaudid for pain control and laboratory studies were sent. Bladder scan was conducted shows 250 cc of urine. Will hold off on Roper catheterization at this time. Patient had improvement in his pain after around dilaudid but states that he still cannot urinate. After appropriate fluid resuscitation his vitals had normalized and he was no longer tachycardic. Blood pressure appropriate, no fever or hypoxia still. He now had about 500 cc on his bladder scan so a Roper catheter was inserted after I discussed the case with the on-call Urology team. I spoke to Dr. Montgomery from Urology and we went over patient's clinical exam, vital signs, CT scan results and urinalysis. Patient had a clean urinalysis without any active bacteria, leukocyte esterase or white or red cells. He does have a leukocytosis although his white cells have been up and down during his last few draws during his inpatient stay. No acute kidney injury is seen. Normal electrolyte profile. The CT scan shows prostate enlargement but no acute process, diverticulosis but no diverticulitis, normal appearing appendix. Recommendations per Urology are to insert a Roper catheter and maintain it and discharge the patient with continued antibiotic therapy as she was just discharged and completed a course of IV antibiotics. He just started his course of Levaquin and has a prescription ready to take. Instructed to get prescriptions for Flomax and have him follow-up with Urology on outpatient basis. Patient was re-evaluated had improvement in his pain and was agreeable to this plan of care. His vital signs have normalized and he is tolerating p.o. intake. Roper catheter inserted with drainage clear yellow urine and improvement his symptoms. We went over plan of care including admission for pain control verses discharge per Urology recommendations with urology follow- up. Patient preferred to go home and will be sent home with pain medications including as needed [place] in addition to [id number] pain medications as well as Flomax for continued symptom control. He was given catheter instructions and patient and family were comfortable with discharge at this time. Patient was given strict return precautions including developing any fever, intractable pain, developing any nausea with intractable vomiting, or any other concerns and will return to the ER at that time. Medical Records Attestation: I reviewed the patient's medical records. Lab Data Attestation: I reviewed the patient's lab results. 05/03/24 12:18 05/03/24 12:18 Labs: Lab Results 05/03/24 05/03/24 Range/Units 12:18 14:07 WBC 18.7 H (4.5-10.0) K/mm3 RBC 4.26 L (4.6-6.20) M/mm3 Hgb 13.1 L (14.0-18.0) g/dL Hct 38.7 L (42.0-52.0) % MCV 90.8 (80-100) fl MCH 30.8 (26-34) pg MCHC 33.9 (32-36) g/dl RDW 14.4 (11.5-14.5) % Plt Count 227 D (150-375) k/mm3 MPV 10.7 H (7.4-10.4) fl Immature Gran % (Auto) 0.8 H (0-0.5) % Neut % (Auto) 72.9 (45.5-73.1) % Lymph % (Auto) 16.4 L (18.3-44.2) % [facility] % (Auto) 8.1 (2.6-8.5) % Eos % (Auto) 1.3 (0-4.4) % Baso % (Auto) 0.5 (0.2-1.2) % Lymph # (Auto) 3.07 (0.9-3.2) K/mm3 [facility] # (Auto) 1.5 H (0.1-0.6) K/mm3 Eos # (Auto) 0.3 (0-0.3) K/mm3 Baso # (Auto) 0.1 (0.0-0.1) K/mm3 Abs Immat Gran (auto) 0.15 H (0.00-0.031) K/mm3 Absolute Neuts (auto) 13.6 H (1.3-6.7) K/mm3 Absolute Nucleated RBC 0.000 (0.0-0.012) K/mm3 Nucleated RBC % 0.0 (0.0-0.2) % Sodium 130 L (137-145) mmol/L Potassium 4.0 (3.4-5.0) mmol/L Chloride 100 (98-107) mmol/L Carbon Dioxide 27 (22-30) mmol/L Anion Gap 3 L (4-12) mmol/L BUN 30 H (9-20) mg/dL Creatinine 1.20 (0.7-1.3) mg/dL Estim Creat Clear Calc 70 ml/min Estimated GFR > 60 (59 - ) Glucose 100 (65-110) mg/dL Calcium 8.8 (8.4-10.2) mg/dL Total Bilirubin 0.7 (0.2-1.3) mg/dL AST 39 (17-59) U/L ALT 35 (6-50) U/L Alkaline Phosphatase 67 (38-126) U/L Total Protein 7.0 (6.3-8.2) g/dL Albumin 3.7 (3.5-5.1) g/dL Lipase 117 (23-300) U/L Urine Color Yellow (Yellow) Urine Appearance Clear (Clear) Urine pH 6.5 (5.0-9.0) Ur Specific [place] > 1.045 H (1.001-1.035) Urine Protein Negative (Negative) mg/dL Urine Glucose (UA) Negative (Negative) mg/dL Urine Ketones Negative (Negative) mg/dL Ur Blood (Man) Negative (Negative) Urine Nitrate Negative (Negative) Urine Bilirubin Negative (Negative) Urine Urobilinogen 0.2 (<2.0) mg/dL Leukocyte Esterase Rfl Negative (Negative) FERNANDEZ/UL Imaging Data Attestation: I personally reviewed and interpreted this imaging study as follows: My impression: Impressions Abdomen/Pelvis CT 05/03/24 13:50 IMPRESSION: Suture line at rectum Mild prostate enlargement Small sliding hiatal hernia Suggestion of gallbladder sludge Diverticulosis of the left and right colon; no evidence of diverticulitis Normal appendix Discharge Plan Discharge Clinical Impression: Acute urinary retention, Acute prostatitis Patient Disposition: Home, Self-Care Condition: Stable Instructions: Antibiotic Form, Prostatitis (ED), Urinary Retention in Men (ED), Roper Catheter Placement and Care (ED) Additional Instructions: We placed a Roper catheter for urine retention. Continue taking your antibiotics for your prostatitis. We will send you home with pain medications and you need to follow-up with the urologist on outpatient basis. Return to the ER if you develop any fevers, intractable pain, developing any nausea vomiting or difficulty tolerating p.o. intake or any other concerning features. Patient Language: Bangladeshi Prescriptions: New tamsulosin [Flomax] 0.4 mg capsule 0.4 mg PO DAILY Qty: 20 0RF hydrocodone-acetaminophen 10-325 mg tablet 0.5 tablet PO Q6H PRN (Reason: pain) 3 Days Qty: 12 0RF No Action celecoxib [Celebrex] 200 mg capsule 200 mg PO BID methotrexate sodium 2.5 mg tablet 2.5 mg PO WEEKLY Rx Instructions: Takes 6 tablets by mouth every week multivitamin Tablet 1 tablet PO DAILY gabapentin 300 mg capsule 300 mg PO TID carvedilol [Coreg] 12.5 mg tablet 12.5 mg PO Q12H atorvastatin 40 mg tablet 40 mg PO HS hydrochlorothiazide 25 mg tablet 25 mg PO DAILY ferrous sulfate 324 mg (65 mg iron) tablet,delayed release (DR/EC) 324 mg PO DAILY prednisone 5 mg tablet 10 mg PO BID bupropion HCl 100 mg tablet 100 mg PO .q12 folic acid 1 mg tablet 1 mg PO DAILY glucosamine sulfate [Glucosamine] 500 mg Tablet 500 mg PO DAILY Refresh Optive 0.5-0.9 % Drops 1 drp OPHTHALMIC (EYE) BID Ocuvite Adult 50 Plus 250-5-1 mg Capsule 1 cap PO EVERY OTHER DAY icosapent ethyl [Vascepa] 1 gram Capsule 2 g PO BID magnesium citrate 100 mg Tablet 100 mg PO EVERY OTHER DAY metaxalone [Skelaxin] 800 mg tablet 800 mg PO TID PRN (Reason: muscle pain) Qty: 10 0RF potassium 99 mg tablet 49.5 mg PO BID finasteride 5 mg tablet 5 mg PO DAILY Qty: 90 0RF levofloxacin 750 mg tablet 750 mg PO DAILY Qty: 10 0RF cholecalciferol (vitamin D3) [Vitamin D3] 10 mcg (400 unit) Capsule 10 mcg PO DAILY Simponi ARIA 12.5 mg/mL Solution See Rx Instructions .ROUTE .COMPLEX Rx Instructions: 180 mg intravenously ;administer over 30 mins, every 8 weeks turmeric 1,000 mg PO DAILY pantoprazole 40 mg tablet,delayed release (DR/EC) 40 mg PO BID Qty: 180 4RF tizanidine 4 mg tablet 4 mg PO .qhs Qty: 90 2RF cetirizine [Zyrtec] 10 mg tablet 10 mg PO DAILY Qty: 90 3RF aspirin 81 mg tablet,delayed release (DR/EC) 81 mg PO DAILY Qty: 90 3RF Follow-up/Referrals: Tomas Hyman MD [Primary Care Provider] - Lloyd Underwood MD [Physician] - 1 Week (Urinary retention, prostatitis) Time of Disposition: 16:35
[2024-05-03 12:30] LABS: Basophils Absolute Auto 0.1 K/mm3 (0.0-0.1); Basophils Percent Auto 0.5 % (0.2-1.2); Eosinophils Absolute Auto 0.3 K/mm3 (0-0.3); Eosinophils Percent Auto 1.3 % (0-4.4); Hematocrit 38.7 % (42.0-52.0); Hemoglobin 13.1 g/dL (14.0-18.0); Immature Granulocyte Absolute 0.15 K/mm3 (0.00-0.031); Immature Granulocyte Percent A 0.8 % (0-0.5); Lymphocytes Absolute Auto 3.07 K/mm3 (0.9-3.2); Lymphocytes Percent Auto 16.4 % (18.3-44.2); Mean Corpuscular HGB Conc 33.9 g/dl (32-36); Mean Corpuscular Hemoglobin 30.8 pg (26-34); Mean Corpuscular Volume 90.8 fl (80-100); Mean Platelet Volume 10.7 fl (7.4-10.4); Monocytes Absolute Auto 1.5 K/mm3 (0.1-0.6); Monocytes Percent Auto 8.1 % (2.6-8.5); Neutrophils Absolute Auto 13.6 K/mm3 (1.3-6.7); Neutrophils Percent Auto 72.9 % (45.5-73.1); Platelet Count Result 227 k/mm3 (150-375); Red Blood Count 4.26 M/mm3 (4.6-6.20); Red Cell Distribution Width 14.4 % (11.5-14.5); White Blood Count 18.7 K/mm3 (4.5-10.0)
[2024-05-03] MEDS: HYDROmorphone HCL INJ (*CRX) 1 MG/ML SYR IV PUSH ×2 (12:40→16:08)
[2024-05-03] MEDS: levoFLOXacin 750 MG/D5W 150 ML 750 MG/150 ML BAG 100 MG IVPB (12:40)
[2024-05-03 12:47] LABS: Alanine Aminotransferase 35 U/L (6-50); Albumin Level 3.7 g/dL (3.5-5.1); Alkaline Phosphatase 67 U/L (38-126); Anion Gap 3 mmol/L (4-12); Aspartate Amino Transferase 39 U/L (17-59); Bilirubin,Total 0.7 mg/dL (0.2-1.3); Blood Urea Nitrogen 30 mg/dL (9-20); Calcium 8.8 mg/dL (8.4-10.2); Carbon Dioxide 27 mmol/L (22-30); Chloride 100 mmol/L (98-107); Estimated CRCL calculation 70 ml/min; Estimated Glomerular Filt Rate > 60; Glucose 100 mg/dL (65-110); Lipase 117 U/L (23-300); Sodium 130 mmol/L (137-145)
[2024-05-03] MEDS: ONDANSETRON INJ 4 MG/2 ML VIAL IV PUSH ×2 (13:21→17:21)
[2024-05-03 14:14] LABS: Add Urine Microscopic? NO; Appearance Urine Clear (Clear); Bilirubin Urine Negative (Negative); Blood Urine Negative (Negative); Color Urine Yellow (Yellow); Glucose Urine UA Negative (Negative); Ketones Urine Negative (Negative); Leukocyte Esterase Ur Negative LEU/UL (Negative); Nitrate Urine Negative (Negative); Protein Urine Negative (Negative); Specific Grav Ur > 1.045 (1.001-1.035); Urobilinogen Urine 0.2 mg/dL (<2.0); pH Urine 6.5 (5.0-9.0)
[2024-05-03] MEDS: TAMSULOSIN HCL 0.4 MG CAPSULE PO (16:07)
[2024-05-03 16:32] VITALS: BP 113/62; PULSE 77; RESP 18; O2SAT 96
--- OUTSIDE RECORDS SUMMARY | 2024-05-10 10:12 | XMS_ITS | Continuity of Care Document ---
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 It does not include entries that were removed or entered in error. Problem Status Onset Date Problem Type Date of Resolution Comments Source skin neoplasm uncertain behavior Active Condition Rule out nevus lipomatosis versus compound nevus DoD rheumatoid arthritis Active Condition 45 yo male with B/L hand pain and ankle and knee pain similar to prior RA flare-ups. Taking all RA meds appropriately and has Rheum appt on Sunday but cannot sleep/sit still b/c pain becomes worse. DoD tinnitus Active Condition DoD dermatophytosis tinea cruris groin Inactive Condition DoD lymphadenopathy Active Condition reso lved now, likely due to rituxin shots, fu if it recurs DoD abdominal pain Inactive Condition sx ma y be due to med se's vs IBS, did have scope recently, recent hemorrhoidectomy and recent tx for diverticulitis, pt to est with [facility] doc today dr duncan and to cont dicyclomine for now DoD testicular neoplasm benign Active Condition seen by , see dr mckeon's note DoD visit for: services physical care home Inactive Condition will fill out 2 [phone] for pt by early next week since he has complicated med hx want to be sure all is documented, pt agreed and will likley pick up man next week, i will call when ready DoD irritable bowel syndrome Active Condition sxs suggest intestinal spasm, will treat w/ bentyl. 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 DoD hemorrhoids Active Condition dr hester man did h-ectomy at [facility] and has fu with him, doing well DoD warts plantar Active Condition cryo x 2 performed on 2 warts on plantar foot and 4 warts on L 2nd digit, katlyn'd proc well and fu wiht me in 3 wks for reexam DoD scrotal neoplasm benign Active Condition found by dr bladimir champagne this month, scrotal us ordered and to be done 30 germán DoD diverticulitis of colon Active Condition may have been predisposed due to recent immunosuppression, seems to have resolved now, pt to fu with dr yung as [place] is done but will likely be released by him, consider cscope down the road DoD testicular disorders Active Condition DoD visit for: administrative purpose Inactive Condition DoD sensorineural hearing loss Active Condition Mild HF SnHL at 8k Hz AD // Borderline-mild SnHL at 8k Hz . SD scores were excellent. Normal middle ear funciton and reflexes in both ears. AR decay negative bilaterally. DPOAEs consistent with h/o noise exposure ahd SnHL.Pt counseled re: tinnit DoD obesity Active Condition DoD Patient Education Dietary Inactive Condition DoD recent weight gain associated with medication Active Condition DoD hemorrhoids internal Active Condition DoD groin (inguinal) pain Inactive Condition after anal issu es addressed at U will re-examine right groin to determine if lymph node persistently enlarged; if so may excise node DoD anal fissure Active Condition DoD joint pain, localized in the wrist Active Condition DoD Patient Education Dietary Energy Expenditure Inactive Condition DoD Patient Education Dietary Changing Eating Habits Inactive Condition DoD Patient Education Dietary Reading Food Labels Inactive Condition DoD Patient Education Dietary Meal Planning Inactive Condition DoD Dietary Strategies When Eating Out Inactive Condition DoD Patient Education Dietary Cooking Differently Inactive Condition DoD Guidance: Concerns About Inadequate Physical Activity Inactive Condition DoD tachycardia sinus Active Condition A: eval'd by cards and will get ETT sunday, if that's ok and since echo ok, likely due to decond and possibly prednisone, pt cannot do ergo for nowP:--not qual'd for ergo for 6 mos--await cards recs sp ETT and if ok then pt to go to [facility] to get exerci DoD visit for: routine eye exam Inactive Condition Placquenil use without ocular side effects. Baseline normal DoD shortness of breath Active Condition DoD arthritis Active Condition DoD backache Inactive Condition A: mainly upper, may be due to RA but seems to be more muscular, no red flag or neuro sx at this timeP: needs xrays of c and t spine and eval from there, cont flexeril DoD Medications Combined list of outpatient medications from Department of Defense and Veterans Affairs facilities.Medications provided include 1) outpatient medications from the last 15 months, and 2) patient-reported medications. Medication Details Route Status Patient Instructions Prescription Expires Prescription Number Last Dispense Date Ordering Provider Order Date Order Qty Source ASPIRIN EC (U/D) 81 MG ORAL TBEC Take with food/mil k.Emily cruz. Active 07/04/2024 [id number] 4 [address] [place] [address]) aspirin EC 81 mg tablet 81 mg, Oral, Daily, # 90 EA, 3 total refill(s ), Hard Stop Oral (given by mouth) Ordered 07/04/2024 90.0 Ambul at ory Pharmac y aspirin EC 81 mg tablet See Instruct ions, # 90 EA, 3 total refill(s ), Acute Complet ed 07/03/2023 90.0 Ambulat ory Pharmac y atorvastati n (U/D) 40 MG ORAL TAB Take with food/mil k.Take or use exactly as directed .Obtain advice for OTCs.Do not take if .Avoid grapefru it and grapefru it juice. 03/14/2024 [id number] 3 [address] [place] [address] [place] atorvastati n 40 mg tablet See Instruct ions, # 90 EA, 3 total refill(s ), Hard Stop Ordered 04/25/2025 90.0 Ambul at ory Pharmac y atorvastati n 40 mg tablet See Instruct ions, # 90 EA, 3 total refill(s ), Hard Stop Complet ed 03/14/2024 90.0 Ambulat ory Pharmac y buPROPion 100 mg tablet See Instruct ions, # 180 EA, 3 total refill(s ), Hard Stop Ordered 04/25/2025 180.0 Ambul at ory Pharmac y buPROPion 100 mg tablet 100 mg, Oral, BID, # 180 EA, 3 total refill(s ), Hard Stop Oral (given by mouth) Complet ed 03/14/2024 180.0 Ambulat ory Pharmac y Bupropion HCl (Wellbutrin SR) Tablet 100mg Oral Do not drink alcohol. Take or use exactly as directed .Obtain advice for OTCs.May impair driving. Check with your doctor before becoming . 03/14/2024 [id number] 3 [address] [place] [address]) carboxymeth ylcel 0.5% EYE DROP [2 X15ML] For the eye. Active 06/24/2024 [id number] 4 [address] [place] [address]) carvedilol (U/D) 12.5 MG ORAL TAB May cause drowsine ss.Be careful if taking OTCs.Mike e with food/mil k.Take or use exactly as directed . 03/14/2024 [id number] 3 [address] [place] [address]) carvedilol 12.5 mg oral tablet TAKE 1 TABLET BY MOUTH TWICE DAILY, # 180 EA, 1 total refill(s ), Acute Complet ed 11/16/2022 180.0 Ambulat ory Pharmac y carvedilol 12.5 mg tablet See Instruct ions, # 180 EA, 3 total refill(s ), Hard Stop Ordered 04/25/2025 180.0 Ambul at ory Pharmac y carvedilol 12.5 mg tablet See Instruct ions, # 180 EA, 3 total refill(s ), Hard Stop Complet ed 03/14/2024 180.0 Ambulat ory Pharmac y CELECOXIB (U/D) 200 MG ORAL CAP Take with plenty of water.Ta ke with food/mil k.Obtain advice for OTCs.Do not take if . Active 07/03/2024 [id number] 4 [address] [place] [address]) celecoxib 200 mg capsule 200 mg, Oral, BID, # 180 EA, 1 total refill(s ), Hard Stop Oral (given by mouth) Complet ed 11/28/2023 180.0 Ambulat ory Pharmac y celecoxib 200 mg capsule 200 mg, Oral, BID, # 180 EA, 1 total refill(s ), Hard Stop Oral (given by mouth) Ordered 07/03/2024 180.0 Ambul at ory Pharmac y CETIRIZINE (U/D) 10 MG ORAL TAB May cause drowsine ss.Obtai n advice for OTCs. 03/20/2024 [id number] 3 [address] [place] [address] Isak GARCIA [place] cetirizine 10 mg tablet 10 mg, Oral, Daily, # 90 EA, 3 total refill(s ), Hard Stop Oral (given by mouth) Complet ed 03/20/2024 90.[address] Meyer Prednisone Tablet 5 mg Oral Take with food/mil k.Take or use exactly as directed .Obtain advice for OTCs. Active 07/03/2024 [id number] 4 [address] [place] [address] Isak [facility] ([facility] finasteride 5 mg tablet 5 mg, Oral, Daily, # 90 EA, 0 total refill(s ), Hard Stop Oral (given by mouth) Ordered 07/31/2024 90.0 Ambul at ory Pharmac y folic acid 1 mg tablet See Instruct ions, # 90 EA, 3 total refill(s ), Acute Complet ed 09/03/2023 90.0 Ambulat ory Pharmac y folic acid 1 mg tablet See Instruct ions, # 90 EA, 3 total refill(s ), Hard Stop Ordered 02/17/2025 90.0 Ambul at ory Pharmac y GABAPENTIN (U/D) 300 MG ORAL CAP May cause drowsine ss.Take or use exactly as directed . Active 07/03/2024 [id number] 4 [address] [place] [address] Isak [facility] ([facility] gabapentin 300 mg capsule 300 mg, Oral, TID, # 270 EA, 1 total refill(s ), Hard Stop Oral (given by mouth) Complet ed 11/28/2023 270.0 Ambulat ory Pharmac y gabapentin 300 mg capsule 300 mg, Oral, TID, # 270 EA, 1 total refill(s ), Hard Stop Oral (given by mouth) Ordered 07/03/2024 270.0 Ambul at ory Pharmac y Hydrochloro thiazide (Oretic) Tablet 25 mg Oral Take orange juice or banana.T anand with food/mil k.Avoid exposure to sun.Take or use exactly as directed . 03/14/2024 [id number] 3 [address] [place] [address] Isak [facility]) hydroCHLORO thiazide 25 mg oral tablet TAKE ONE TABLET BY MOUTH ONCE A DAY, # 90 EA, 3 total refill(s ), Acute Complet ed 11/16/2022 90.0 Ambulat ory Pharmac y hydroCHLORO thiazide 25 mg tablet See Instruct ions, # 90 EA, 3 total refill(s ), Hard Stop Ordered 04/25/2025 90.0 Ambul at ory Pharmac y hydroCHLORO thiazide 25 mg tablet 25 mg, Oral, # 90 EA, 3 total refill(s ), Hard Stop Oral (given by mouth) Complet ed 03/14/2024 90.0 Ambulat ory Pharmac y icosapent ethyl 1 g capsule See Instruct ions, # 360 EA, 3 total refill(s ), Hard Stop Ordered 04/25/2025 360.0 Ambul at ory Pharmac y icosapent ethyl 1 g capsule See Instruct ions, Oral, BID, # 360 EA, 3 total refill(s ), Hard Stop Oral (given by mouth) Complet ed 03/14/2024 360.0 Ambulat ory Pharmac y ICOSAPENT ETHYL 1 GM ORAL CAP Obtain advice for OTCs.Dulce sweet whole.Ch lou with your doctor before becoming .Do not chew or crush.Ta ke with food. 03/14/2024 [id number] 3 [address] [place] [address]) metHOTREXat e (U/D) 2.5 MG ORAL TAB Do not drink alcohol. Avoid exposure to sun.Take or use exactly as directed .Obtain advice for OTCs.Do not take if . Active 07/03/2024 [id number] 4 [address] [place] [address]) metHOTREXat e (U/D) 2.5 MG ORAL TAB Do not drink alcohol. Avoid exposure to sun.Take or use exactly as directed .Obtain advice for OTCs.Do not take if . 03/25/2024 [id number] 3 [address] [place] [address]) methotrexat e 2.5 mg tablet See Instruct ions, Oral, # 72 EA, 0 total refill(s ), Hard Stop Oral (given by mouth) Complet ed 11/28/2023 72.0 Ambulat ory Pharmac y methotrexat e 2.5 mg tablet See Instruct ions, # 72 EA, 0 total refill(s ), Hard Stop Ordered 07/03/2024 72.0 Ambul at ory Pharmac y naltrexone 50 mg tablet See Instruct ions, # 30 EA, 11 total refill(s ), Hard Stop Complet ed 04/08/2024 30.0 Ambulat ory Pharmac y Naltrexone Hydrochlori de (ReVia Eq.) Tablet 50 mg Oral Take or use exactly as directed . 04/08/2024 [id number] 3 [address] [place] [address] Isak GARCIA [place] pantoprazol e EC 40 mg tablet 40 mg, Oral, every morning, # 90 EA, 3 total refill(s ), Hard Stop Oral (given by mouth) Discont inued 11/08/2023 90.0 Ambulat ory Pharmac y pantoprazol e EC 40 mg tablet See Instruct ions, # 90 EA, 3 total refill(s ), Acute Complet ed 07/03/2023 90.0 Ambulat ory Pharmac y pantoprazol e EC 40 mg tablet 40 mg, Oral, BID, # 180 EA, 3 total refill(s ), Hard Stop Oral (given by mouth) Ordered 11/07/2024 180.0 Ambul at ory Pharmac y predniSONE 5 mg tablet 5 mg, Oral, BID, # 180 EA, 1 total refill(s ), Hard Stop Oral (given by mouth) Complet ed 11/28/2023 180.0 Ambulat ory Pharmac y predniSONE 5 mg tablet 5 mg, Oral, BID, # 180 EA, 1 total refill(s ), Hard Stop Oral (given by mouth) Ordered 07/03/2024 180.0 Ambul at ory Pharmac y tiZANidine 4 MG ORAL TAB May cause drowsine ss.Take or use exactly as directed .May impair driving. 03/25/2024 [id number] 3 [address] [place] [address] Isak GARCIA ([facility] tiZANidine 4 mg oral tablet TAKE ONE TABLET TWICE DAILY NEEDED FOR MUSCLE SPASM, # 60 EA, 1 total refill(s ), Acute Complet ed 02/27/2023 60.0 Ambulat ory Pharmac y tiZANidine 4 mg tablet See dose instruct ions in comments , # 60 EA, 1 total refill(s ), Acute Complet ed 06/04/2023 60.0 Ambulat ory Pharmac y tiZANidine 4 mg tablet See Instruct ions, # 60 EA, 1 total refill(s ), Hard Stop Ordered 02/17/2025 60.0 Ambul at ory Pharmac y Wegovy 0.25 mg/0.5 mL inj-pen [4pens/2mL] See Instruct ions, # 2 mL, 6 total refill(s ), Hard Stop Notes: refriger ate Complet ed 03/14/2024 2.0 Ambulat ory Pharmac y Zepbound 2.5 mg/0.5 mL inj-pen [4pens/2mL] See Instruct ions, SubCutan eous, # 2 mL, 4 total refill(s ), Hard Stop SubCut aneous (under the skin) Ordered 01/22/2025 2.0 Ambul at ory Pharmac y Allergies, Adverse Reactions, Alerts Combined list of allergies from Department of Defense and Veterans Affairs facilities. It does not include entries that were removed or entered in error. Substance Category Reaction Severity Reaction type Status Date Reported Comments Source No Known Allergies Drug allergy (disorder) active 01/13/2007 [facility] Isak GARCIA [place] Immunizations Combined list of available immunizations from the Department of Defense and Veterans Affairs facilities. Immunization Series Date Given Administered By Site Reaction Lot Number CVX Code Drug Machine Paint Mixer Status Comments Source COVID Vaccine Pfizer 2020 208 PFIZER complet ed COVID Vaccine Pfizer 03/22/21 Given Ambulat ory Pharmac y Influenza, injectable, MDCK, preservative free, quadrivalent 2020 ALUL, () Not Given Influenza , injectabl e, MDCK, preservat magdalene free, quadrival ent DoD COVID-19 (PFIZER), MRNA, LNP-S, PF, 30 MCG/0.3 ML DOSE 2 2020 208 complet ed PFR; [id number]; 1 [facility] COVID-19 (PFIZER), MRNA, LNP-S, PF, 30 MCG/0.3 ML DOSE 1 2020 208 complet ed PFR; [id number]; 1 [facility] zoster recombinant 2020 ALUL, () Not Given zoster recombina nt DoD influenza virus vaccine, inactivated 2019 88 Seqirus complet ed influenza virus vaccine, inactivat ed 02/18/20 Given Ambulat ory Pharmac y zoster recombinant 2019 ALUL, () Not Given zoster recombina nt DoD Influenza, injectable, MDCK, preservative free, quadrivalent 2019 ALUL, () Not Given Influenza , injectabl e, MDCK, preservat magdalene free, quadrival ent DoD Influenza, injectable, MDCK, preservative free, quadrivalent 2018 MARCK TORRES () Not Given Influenza , injectabl e, MDCK, preservat magdalene free, quadrival ent DoD influenza virus vaccine, live 2010 [id number] [employer] comple t ed influenza virus vaccine, live 02/01/11 Given Ambulat ory Pharmac y influenza virus vaccine, live, attenuated, for intranasal use 1 2010 Unknown, Provider [id number] 111 [employer] (MED) complet ed influenza virus vaccine, live, attenuate d, for intranasa l use DoD influenza virus vaccine,split 2008 zzLcount includes the [facility] Arm [id number] 15 sanofi pasteur complet ed influenza virus vaccine,s plit 03/04/09 Given Ambulat ory Pharmac y influenza virus vaccine, split virus (incl. purified surface antigen)-reti red CODE 1 2008 Unknown, Provider [id number] 15 Sanofi Pasteur ([facility]) complet ed influenza virus vaccine, split virus (incl. purified surface antigen)- retired CODE DoD influenza virus vaccine,split 2007 zzL t Arm [id number] 15 sanofi pasteur complet ed influenza virus vaccine,s plit 04/14/08 Given Ambulat ory Pharmac y influenza virus vaccine, split virus (incl. purified surface antigen)-reti red CODE 1 2007 Unknown, Provider [id number] 15 Sanofi Pasteur ([facility]) complet ed influenza virus vaccine, split virus (incl. purified surface antigen)- retired CODE DoD influenza virus vaccine,split 2004 [facility] [id number] 15 sanofi pasteur complet ed influenza virus vaccine,s plit 03/17/05 Given Ambulat ory Pharmac y influenza virus vaccine, split virus (incl. purified surface antigen)-reti red CODE 1 2004 Unknown, Provider [id number] 15 Sanofi Pasteur ([facility]) complet ed influenza virus vaccine, split virus (incl. purified surface antigen)- retired CODE DoD influenza virus vaccine,split [address] [facility] [facility] [id number] 15 sanofi pasteur complet ed influenza virus vaccine,s plit 05/10/04 Given Ambulat ory Pharmac y influenza virus vaccine, split virus (incl. purified surface antigen)-reti red CODE 1 2004 Unknown, Provider [id number] 15 Sanofi Pasteur ([facility]) complet ed influenza virus vaccine, split virus (incl. purified surface antigen)- retired CODE DoD influenza virus vaccine, whole virus [address] [facility] Arm [id number] 16 [employer]is Pharm[employer] ls complet ed influenza virus vaccine, whole virus 03/11/03 Given Ambulat ory Pharmac y influenza virus vaccine, whole virus 1 2002 Unknown, Provider [id number] 16 [employer] (PWJ) complet ed influenza virus vaccine, whole virus [facility] tetanus-dipht h toxoids (Td) adult/adol [address] [facility] Arm [id number] 09 sanofi pasteur complet ed tetanus-d iphth toxoids (Td) adult/ado l 01/19/03 Given Ambulat ory Pharmac y tetanus and diphtheria toxoids, adsorbed, preservative free, for adult use (2 Lf of tetanus toxoid and 2 Lf of diphtheria toxoid) 1 2002 Unknown, Provider [id number] 09 Sanofi Pasteur ([facility]) complet ed tetanus and diphtheri a toxoids, adsorbed, preservat magdalene free, for adult use (2 Lf of tetanus toxoid and 2 Lf of diphtheri a toxoid) [facility] influenza virus vaccine, whole virus 2001 [facility] t Arm [id number] 16 sanofi pasteur complet ed influenza virus vaccine, whole virus 03/07/02 Given Ambulat ory Pharmac y influenza virus vaccine, whole virus 1 2001 Unknown, Provider [id number] 16 Sanofi Pasteur ([facility]) complet ed influenza virus vaccine, whole virus DoD influenza virus vaccine, whole virus 2000 zzLef t Arm [id number] 16 sanofi pasteur complet ed influenza virus vaccine, whole virus 03/14/01 Given Ambulat ory Pharmac y influenza virus vaccine, whole virus 1 2000 Unknown, Provider [id number] 16 Sanofi [facility] ([facility]) complet ed influenza virus vaccine, whole virus DoD influenza virus vaccine, whole virus 1999 [id number] 16 [employer] [facility] complet ed influenza virus vaccine, whole virus 04/17/00 Given Ambulat ory Pharmac y influenza virus vaccine, whole virus 2 1999 Unknown, Provider [id number] [facility] complet ed influenza virus vaccine, whole virus DoD influenza virus vaccine, whole virus 1998 16 complet ed influenza virus vaccine, whole virus 02/16/99 Given Ambulat ory Pharmac y influenza virus vaccine, whole virus 1 1998 Unknown, Provider 16 () complet ed influenza virus vaccine, whole virus DoD influenza virus vaccine, whole virus [id number] 16 [facility] complet ed influenza virus vaccine, whole virus 03/08/98 Given Ambulat ory Pharmac y influenza virus vaccine, whole virus 1 1997 Unknown, Provider [id number] 16 [facility] ([facility]) complet ed influenza virus vaccine, whole virus DoD influenza virus vaccine, whole virus [id number] [id number] 16 PFIZER complet ed influenza virus vaccine, whole virus 04/13/97 Given Ambulat ory Pharmac y hepatitis A adult vaccine 1996 [id number] 52 GlaxoSmithKli ne complet ed hepatitis A adult vaccine 04/13/97 Given Ambulat ory Pharmac y influenza virus vaccine, whole virus 1 1996 Unknown, Provider [id number] [facility] ([place]) complet ed influenza virus vaccine, whole virus DoD hepatitis A vaccine, adult dosage 1 1996 Unknown, Provider [id number] 52 Smithine (SKB) complet ed hepatitis A vaccine, adult dosage DoD hepatitis A adult vaccine 1996 [id number] 52 GlaxoSmithKli ne complet ed hepatitis A adult vaccine 04/08/97 Given Ambulat ory Pharmac y hepatitis A vaccine, adult dosage 2 1996 Unknown, Provider [id number] 52 SmithKline (SKB) complet ed hepatitis A vaccine, adult dosage DoD hepatitis A adult vaccine [id number] [facility] A adult vaccine 07/14/96 Given Ambulat ory Pharmac y hepatitis A vaccine, adult dosage 1 1996 Unknown, Provider [id number] 52 [place] (CON) complet ed hepatitis A vaccine, adult dosage DoD tetanus-dipht h toxoids (Td) adult/adol 1992 09 complet ed tetanus-d iphth toxoids (Td) adult/ado l 01/11/93 Given Ambulat ory Pharmac y tetanus and diphtheria toxoids, adsorbed, preservative free, for adult use (2 Lf of tetanus toxoid and 2 Lf of diphtheria toxoid) 1 1992 Unknown, Provider 09 () complet ed tetanus and diphtheri a toxoids, adsorbed, preservat magdalene free, for adult use (2 Lf of tetanus toxoid and 2 Lf of diphtheri a toxoid) DoD yellow fever vaccine 1989 37 complet ed yellow fever vaccine 03/12/90 Given Ambulat ory Pharmac y yellow fever vaccine 1 1989 Unknown, Provider 37 () complet ed yellow fever vaccine DoD poliovirus vaccine, live, oral 1987 02 complet ed polioviru s vaccine, live, oral 10/06/87 Given Ambulat ory Pharmac y trivalent poliovirus vaccine, live, oral 1 1987 Unknown, Provider 02 () complet ed trivalent polioviru s vaccine, live, oral DoD tuberculin purified protein derivative 1986 Nickie t Arm 96 complet ed Patient Tolerance : Positive Ambulat ory Pharmac y tuberculin skin test; purified protein derivative solution, intradermal 1 1986 Unknown, Provider 96 () complet ed tuberculi n skin test; purified protein derivativ e solution, intraderm al DoD Vital Signs Combined list of inpatient and outpatient Vital Signs from Department of Defense and Veterans Affairs, ranging from 12 months to all on record, depending upon the facility. Vital Sign Value Date Comments Source No data available for this section Ambulatory Pharmacy Encounters Combined list of: 1) Encounters from Department of Veterans Affairs facilities going back up to thelast 18 months. 2) Encounters from the Department of Defense facilities going back up to 280 months. Location Location Details Encounter Type Encounter Number Reason For Visit Attending Provider ADM Date DC Date Status Disposition Source [address] [place] [address] Isak BORDENB [place] [facility] Fam Res [place]) OUTPATIENT [id number] f/u for tanesha ames and nirav leach board review ROBBIE ROBLES 09/15 Released w/o Limitations [address] [place] [address] [employer] ([facility] [facility] Fam Res [place]) [address] [place] [address] Isak BORDENB [place] S II Test Isak) TELE CONSULT [id number] ROBBIE Estrada 09/[address] [place] [address] Isak BORDENB ([facility]C [facility] II Test Isak) [address] [place] [address] [employer] ([facility] tt [facility] Fam Res [place]) TELE CONSULT [id number] Medicat ion GITA MARTINEZ 10/[address] [place] [address] [employer]ORD[employer] ([facility] Fam Res Tm Green) [address] [place] [address] [employer] [facility]Sco tt [facility] Fam Res Tm Green) OUTPATIENT [id number] F/U per ROBBIE Saez 10/27 Released w/o Limitations [address] [place] [address] [employer] BORDEN[employer] ([facility]S cott [facility] Fam Res Tm Green) [address] [place] [address] [employer] [facility]Car diologyPr ocedure Schedules ) OUTPATIENT [id number] RA, on DMANICKY SALGADO 11/03 Released w/o Limitations [address] [place] [address] [employer] ([facility]C ardiolo gyProce dure Schedul es) [address] [place] [address] [employer] ([facility]Opt ometry) OUTPATIENT [id number] routine eye exam ROSHAN PEÑA 11/18 Released w/o Limitations [address] [place] [address] [employer] ([facility]O ptometr y) [address] [place] [address] [employer] ([facility]Sco tt [facility] Fam Res Tm Green) TELE CONSULT [id number] Profile /Physic al ROBBIE Sinclair 11/[address] [place] [address] [employer] ([facility]S cott [facility] Fam Res Tm Green) [address] [place] [address] [employer] [facility]Aud iology) OUTPATIENT [id number] RA, on meds NICKY MELO 11/24 Released w/o Limitations [address] [place] [address] [employer] ([facility]A udiolog y) [facility] [employer] ([facility])(Gen eral Surgery) OUTPATIENT [id number] c-scope f/u YOSELIN YUNG 11/30 Released w/o Limitations [employer] ([facility]G eneral Surgery ) [employer] ([facility]Sco tt [facility] Fam Res Tm Green) OUTPATIENT [id number] profile and referra l ROBBIE ROBLES 01/16 Released w/o Limitations [facility] [employer] MICHIAndrew ([facility]S cott [facility] Fam Res Tm Green) [employer] ([facility]Gen eral Surgery) OUTPATIENT [id number] dr yung-f /u ARLINE López 01/17 Released w/o Limitations [facility] [employer] MICHIAndrew ([facility]G eneral Surgery ) Medical [facility] Isak B [facility]Car diology ([facility])) OUTPATIENT [id number] tachyca NICKY Dao 01/30 Released w/o Limitations Medical [facility] [employer] MICHIAndrew ([facility]C ardiolo gy ([facility])) [employer] MICHIAndrew ([facility]Sco tt [facility] Fam Res Tm Green) TELE CONSULT [id number] Austin ROBLESROBBIE Berto 02/15 Medical [facility] [employer] MICHIAndrew ([facility]S cott [facility] Fam Res Tm Green) [facility] Isak MICHIB [facility]Sco tt [facility] Fam Res Tm Green) OUTPATIENT [id number] F/U Profile (4t)--E xpires on Feb 01 ROBBIE ROBLES Berto 02/17 Released w/o Limitations [employer] ([facility]S cott [facility] Fam Res Tm Green) [facility] [employer] GARCIA [facility]Lif e Skills [facility]) OUTPATIENT [id number] GIA CORONADO 03/08 Released w/o Limitations Medical [facility] [employer] GARCIA ([facility]L lizzy Skills Clinic) [facility] Medical [facility] Isak BORDENB [facility]) OUTPATIENT [id number] weight gain MURALI BAUMANN 05/05 Released w/o Limitations [employer] ([facility])(N utritio nal Medicin e) th [employer] ([facility]Sco tt [facility] Fam Res Tm Green) OUTPATIENT [id number] joint pain--a rthriti ROBBIE Garcia 05/22 Released w/o Limitations [employer] ([facility]S cott OF Fam Res Tm Green) [employer] ([facility]Sco tt [facility] Fam Res Tm Green) TELE CONSULT [id number] Profile MARGARETROBBIE Berto 05/24 [employer] ([facility]S cott [facility] Fam Res Tm Green) [facility] [employer] ([facility])(Nut ritional Medicine) OUTPATIENT [id number] CARYL PENDLETON 05/25 Released w/o Limitations [employer] ([facility])(N utritio nal Medicin e) [employer] ([facility]Sco tt [facility] Fam Res Tm Green) TELE CONSULT [id number] Referra GITA Esteves 06/14 [employer] ([facility]S cott [facility] Fam Res Tm Green) [facility] [employer] ([facility])(Gen eral Surgery) OUTPATIENT [id number] F/U for appt with Dr. Shelley jane at [facility] YOSELIN YUNG 07/18 Released w/o Limitations [employer] ([facility])(G eneral Surgery ) [facility] [employer] ([facility])(Nut ritional Medicine) OUTPATIENT [id number] BCIP f/u at [facility] AMMY CARRASCO 07/21 Released w/o Limitations [employer] ([facility])(N utritio nal Medicin e) [employer] ([facility]Sco tt [facility] Fam Res Tm Green) TELE CONSULT [id number] ROBBIE RANDLE 07/27 [employer] ([facility]S cott [facility] Fam Res Tm Green) [employer] ([facility]Sco tt [facility] Fam Res Tm Green) TELE CONSULT [id number] Medicat ion/Ventura atment Status/ ROBBIE RANDLE 08/04 [employer] ([facility]S cott [facility] Fam Res Tm Green) Medical [facility] [employer] ([facility])(Aud iology) OUTPATIENT [id number] hearing test NICKY MELO P 08/08 Released w/o Limitations Medical [facility] [employer] ([facility]A udiolog y) Medical [facility] [employer] ([facility]Sco tt [facility] Fam Res Tm Green) OUTPATIENT [id number] mickeyripablo wilcox ROBLESROBBIE Berto 08/21 Released w/o Limitations Medical [facility] [employer] ([facility]S cott [facility] Fam Res Tm Green) [facility] [employer] ([facility]Sco tt [facility] Fam Res Tm Green) TELE CONSULT [id number] Con Carlos ROBBIE ROBLES Berto 08/25[facility] [employer] ([facility]S cott [facility] Fam Res Tm Green) [facility] Medical [facility] [employer] ([facility])(Aud iology) OUTPATIENT [id number] F/U RINGING IN EARS MELO NICKY P 10/02 Released w/o Limitations Medical [facility] [employer] ([facility])(A udiolog y) [facility] Medical [facility] [employer] ([facility]Sco tt [facility] Fam Res Tm Green) TELE CONSULT [id number] MARGARETROBBIE Berto 10/05 Medical [facility] [employer] ([facility]S cott [facility] Fam Res Tm Green) [address] [place] [address] [employer] ([facility])(Gen eral Surgery) OUTPATIENT [id number] DIVERTI YOSELIN WARD 10/17 Released w/o Limitations Medical [facility] [employer] ([facility]G eneral Surgery ) Medical [facility] [employer] ([facility]Sco tt [facility] Fam Res Tm Green) OUTPATIENT [id number] Growth on foot in mitesh of ROBBIE RANDLE Berto 10/20 Released w/o Limitations Medical [facility] [employer] ([facility]S cott [facility] Fam Res Tm Green) [facility] Medical [facility] [employer] ([facility])(Opt ometry) OUTPATIENT [id number] eye exam ROSHAN PEÑA 10/26 Released w/o Limitations [facility] [employer] ([facility])(O ptometr y) [address] [place] [address] [employer]ak GARCIA ([facility]Sco tt [facility] FAMRES Tm Blue) OUTPATIENT [id number] GI problem s MARIA ANTONIA DIAMOND 11/09 Released w/o Limitations [address] [place] [address] [employer] GARCIA ([facility]S cott [facility] FAMRES Tm Blue) [address] [place] [address] Isak BORDENB [facility]Sco tt [facility] Fam Res Tm Green) OUTPATIENT [id number] exit physica ROBBIE Harding 11/10 Released w/o Limitations [address] [place] [address] [employer]ak GARCIA [facility]S cott [facility] Fam Res Tm Green) [address] [place] [address] Isak BORDENB [facility])(Uro logy) OUTPATIENT [id number] NYDIA MCKEON 11/27 Released w/o Limitations [address] [place] [address] Isak GARCIA [facility])(U rology) [address] [place] [address] [employer]ak GARCIA [facility])(Gen eral Surgery) OUTPATIENT [id number] f/u surgery interna l hemmorr hoid complic ation diverti culitis at [facility] YOSELIN YUNG 11/29 Released w/o Limitations [address] [place] [address] [employer] GARCIA ([facility])(G eneral Surgery ) [address] [place] [address] [employer] GARCIA [facility]Sco tt [facility] Fam Res Tm Green) TELE CONSULT [id number] call ROBBIE ROBLES 12/[address] [place] [address] [employer] GARCIA ([facility]S cott [facility] Fam Res Tm Green) [address] [place] [address] Isak GARCIA [facility]Sco tt [facility] Fam Res Tm Green) OUTPATIENT [id number] Abdomin al pains, referal derm for biopsy (Dr Yung for more info) ROBBIE ROBLES 12/27 Released w/o Limitations [address] [place] [address] [employer] GARCIA ([facility]S cott [facility] Fam Res Tm Green) [address] [place] [address] Isak GARCIA [facility])(Yonas matology) OUTPATIENT [id number] YOU Thomas 12/27 Released w/o Limitations [address] [place] [address] [employer]ak GARCIA ([facility])(D ermatol ogy) [address] [place] [address] [employer]ak GARCIA [facility])(Aud iology) OUTPATIENT [id number] Fit and setup for judy s MARLIN LOZA 03/29 Released w/o Limitations [employer] GARCIA ([facility])(A udiolog y) [employer] Isak Andrew [facility]Amb Care Clinic) OUTPATIENT [id number] joint pain ROBBIE TAPIA V 03/29 Released w/o Limitations [employer] Andrew ([facility]A Care Clinic) [facility])(Yonas matology) OUTPATIENT [id number] F/U Mole check YOU SNYDER L 05/15 Released w/o Limitations [facility] ([facility])(D ermatol ogy) [facility] Outpatient Encounter [id number] 4 11/11 [facility] Procedures Combined list of: 1) Procedures from Department of Veterans Affairs facilities going back up to thelast 18 months, not all [place] non-surgical procedures are included; 2) All procedures from the Department of Defense facilities. Procedure Procedure Type Code Date Perfomer Comments Sourc e No data available for this section Amb[facility] ry Pharmacy FITTING OF SPECTACLES, EXCEPT FOR APHAKIA; MONOFOCAL 004 [facility] HEALTH AND BEHAVIOR INTERVENTION, EACH 15 MINUTES, [id number]; GROUP (2 OR MORE PATIENTS) 004 [facility] PROCTOSIGMOIDOSCOPY, RIGID; DIAGNOSTIC, WITH OR WITHOUT COLLECTION OF SPECIMEN(S) BY BRUSHING OR WASHING (SEPARATE PROCEDURE) 004 [facility] PROSTATE CANCER SCREENING; DIGITAL RECTAL EXAMINATION [facility] OPHTHALMOLOGICAL SERVICES: MEDICAL EXAMINATION AND EVALUATION, WITH INITIATION OR CONTINUATION OF DIAGNOSTIC AND TREATMENT PROGRAM; COMPREHENSIVE, ESTABLISHED PATIENT, 1 OR MORE VISITS 003 [facility] PHYS/OTH QUALIFIED [facility]ALTH [place] MACHINE OPERATOR QUALIFIED,EDUCATION, TRAIN,LICENSURE/REGU LATION (WHEN APPLICABLE) EDUC SER RENDERED TO PATS IN A GRP SETTING (EG,,OBESITY ,OR DIABETIC INSTRUCT) 002 [facility] THERAPEUTIC PROCEDURE, 1 OR MORE AREAS, EACH 15 MINUTES; THERAPEUTIC EXERCISES TO DEVELOP STRENGTH AND ENDURANCE, RANGE OF MOTION AND FLEXIBILITY 002 [facility] OSTEOPATHIC MANIPULATIVE TREATMENT (OMT); 1-2 BODY REGIONS INVOLVED 001 [facility] BIOPSY OF SKIN, SUBCUTANEOUS TISSUE AND/OR MUCOUS MEMBRANE (INCLUDING SIMPLE CLOSURE), UNLESS OTHERWISE LISTED; SINGLE LESION [facility] ASSESSMENT OF TINNITUS (INCLUDES PITCH, LOUDNESS MATCHING, AND MASKING) [facility] UNLISTED SPECIAL SERVICE, PROCEDURE OR REPORT [facility] TISSUE EXAMINATION BY MACK SLIDE OF SAMPLES FROM SKIN, HAIR, OR NAILS FOR FUNGI OR ECTOPARASITE OVA OR MITES (EG, SCABIES) [facility] FITTING OF SPECTACLES, EXCEPT FOR APHAKIA; MONOFOCAL DoD DESTRUCTION (EG, LASER SURGERY, ELECTROSURGERY, CRYOSURGERY, CHEMOSURGERY, SURGICAL CURETTEMENT), OF BENIGN LESIONS OTHER THAN SKIN TAGS OR CUTANEOUS VASCULAR PROLIFERATIVE LESIONS; UP TO 14 LESIONS [facility] EAR IMPRESSION, EACH [facility] INFUSION, NORMAL SALINE SOLUTION, 250 CC [facility] ACOUSTIC REFLEX TESTING; DECAY [facility] MEDICAL NUTRITION THERAPY; INITIAL ASSESSMENT AND INTERVENTION, INDIVIDUAL, [id number] WITH THE PATIENT, EACH 15 MINUTES [facility] MEDICAL NUTRITION THERAPY; GROUP (2 OR MORE INDIVIDUAL(S)), EACH 30 MINUTES [facility] INJECTION, KETOROLAC TROMETHAMINE, PER 15 MG [facility] MEDICAL NUTRITION THERAPY; GROUP (2 OR MORE INDIVIDUAL(S)), EACH 30 MINUTES [facility] HEALTH AND BEHAVIOR INTERVENTION, EACH 15 MINUTES, [id number]; GROUP (2 OR MORE PATIENTS) [facility] ELECTROCARDIOGRAM, ROUTINE ECG WITH AT LEAST 12 LEADS; WITH INTERPRETATION AND REPORT [facility] SPEECH AUDIOMETRY THRESHOLD; WITH SPEECH RECOGNITION [facility] FITTING OF SPECTACLES, EXCEPT FOR APHAKIA; MONOFOCAL [facility] DOPPLER ECHOCARDIOGRAPHY, PULSED WAVE AND/OR CONTINUOUS WAVE WITH SPECTRAL DISPLAY (LIST SEPARATELY IN ADDITION TO CODES FOR ECHOCARDIOGRAPHIC IMAGING); COMPLETE [facility] UNLISTED SPECIAL SERVICE, PROCEDURE OR REPORT [facility] Biopsy Skin Biopsy Skin 45843 YOU SNYDER [facility] Patient Training And Self-Care Skills Patient Training And Self-Care Skills 85453 MARLIN LOZA [facility] Evaluation Of Tinnitus Evaluation Of Tinnitus 90791 MARLIN LOZA [facility] Skin Lesion MACK Prep Skin Lesion MACK Prep 02613 006 YOU SNYDER [facility] Visual Berry Test Intermediate Examination Visual Berry Test Intermediate Examination 67919 006 ROSHAN PEÑA Spectacles Services Fitting Monofocal Except For Aphakia Spectacles Services Fitting Monofocal Except For Aphakia 56590 006 ROSHAN PEÑA Determination Of Refractive State Determination Of Refractive State 64440 006 ROSHAN PEÑA Ophthalmological Prior Patient Start Comprehensive Care Ophthalmological Prior Patient Start Comprehensive Care 40625 006 ROSHAN PEÑA Destruction Of Flat Warts By Cryosurgery Up To 14 Lesions 006 ROBBIE ROBLES [facility] Ear impre ion, each 006 NICKY MELO Acoustic Reflex Decay Test Acoustic Reflex Decay Test 27576 006 NICKY MELO Comprehensive Audiometry Comprehensive Audiometry 37130 006 NICKY MELO Tympanometry Tympanometry 06882 006 NICKY MELO Evoked Otoacoustic Sharron ions Diagnostic Evaluation 006 NICKY MELO Acoustic Reflex Testing NICKY MELO Medical Nutrition Therapy Initial A e ment And Intervention Each 15 Minutes Medical Nutrition Therapy Initial Assessment And Intervention Each 15 Minutes 76550 006 AMMY CARRASCO [facility] Medical Nutrition Therapy Group (2 or More Individuals) Each 30 Minutes Medical Nutrition Therapy Group (2 or More Individuals) Each 30 Minutes 49454 006 CARYL PENDLETON [facility] Physician Supervised Injection Intramuscular Physician Supervised Injection Intramuscular 88558 006 ROBBIE ROBLES [facility] Injection, ketorolac tromethamine, per 15 mg 006 ROBBIE ROBLES [facility] Medical Nutrition Therapy Group (2 or More Individuals) Each 30 Minutes Medical Nutrition Therapy Group (2 or More Individuals) Each 30 Minutes 68450 006 MURALI BAUMANN [facility] Health And Behav Intervention, Each Additional 15 Min Grp (2 Or More) Health And Behav Intervention, Each Additional 15 Min Grp (2 Or More) 03147 005 GIA AMADOR [facility] Electrocardiogram Electrocardiogram 54951 01/31 005 NICKY RANDHAWA Tympanometry Tympanometry 73467 005 NICKY MELO Acoustic Reflex Testing 005 NICKY MELO Audiometry Speech Threshold With Discrimination Audiometry Speech Threshold With Discrimination 02110 005 MELONICKY GALVEZ Evoked Otoacoustic Sharron ions Diagnostic Evaluation 005 NICKY MELO Threshold Audiogram (Pure Tone) Threshold Audiogram (Pure Tone) 82881 005 MELONICKY GALVEZ Visual Berry Test Limited Examination Visual Berry Test Limited Examination 73852 005 ROSHAN PEÑA Determination Of Refractive State Determination Of Refractive State 81718 005 ROSHAN PEÑA Spectacles Services Fitting Monofocal Except For Aphakia Spectacles Services Fitting Monofocal Except For Aphakia 17593 005 ROSHAN PEÑA Ophthalmological New Patient Start Comprehensive Care Ophthalmological New Patient Start Comprehensive Care 29918 005 ROSHAN PEÑA Echo (2-D) 005 NICKY RANDHAWA Echocardiogram Doppler Color Flow Velocity Mapping Echocardiogram Doppler Color Flow Velocity Mapping 84360 005 NICKY RANDHAWA Echocardiogram Doppler Echocardiogram Doppler 32754 005 NICKY RANDHAWA Social History Combined list of available smoking, tobacco, and other social history from Department of Defense and Veterans Affairs facilities. Social History Type Response Date Comment Sour e Tobacco smoking status NHIS LIFETIME NON-TOBACCO USER 11/16/2005 [facility] This section is an empty social history section. DoD Assessment and Plan Combined list of future care activities from Department of Defense and Veterans Affairs facilities (e.g., assessment and plan notes, appointments, orders, and referrals). Additional future care activities may be listed in the Plan of Care section. Result Assessment and Plan Date Source Assessment and Plan No data available for this section 05/10/2024 Ambulatory Pharmacy Functional Status Combined list of recent functional and cognitive assessments recorded at Department of Defense and Veterans Affairs (VA).VA Functional [place] Measurement (FIM) Scale: 1 = Total Assistance (Subject = 0% +), 2 = Maximal Assistance (Subject = 25% +), 3 = Moderate Assistance (Subject = 50% +), 4 = Minimal Assistance (Subject = 75% +), 5 = Supervision, 6 = Modified [place] (Device), 7 = Complete [place] (Timely, Safely). Assessment Date/Time Source Assessment Type Assessment Skill Assessment Score Assessment Details No data available for this section
--- OUTSIDE RECORDS SUMMARY | 2024-05-10 10:12 | XMS_ITS ---
Author Name [facility] [place] Organization [facility] [place] Address [address] [place] [address] Support Name Relationship Address Phone TUSHAR Carpenter Next of Kin #[address] [place] [address] TUSHAR Carpenter Emergency Contact #[address] [place] [address] Selected Encounter This section includes the information on record at [place] for the Encounter. Date/Time Encounter Type Encounter Description Reason Pro vider Source Nov 12, 2023 05:20 PM Outpatient Encounter ADMIN PAT ACTIVTIES (MASNONCT) IHE Encounter Template Text not used by [place] Social History: Smoking Status (Most current) and Tobacco Use (All prior to encounter date) This section includes the most current, and the historical, smoking and tobacco- related health factors from the [place] facility where the Encounter took place. Current Smoking Status This section includes the most current smoking, or tobacco-related health factor, from the [place] facility where the Encounter took place. Date/Time Current Smoking Status Comment Elisa bullock Nov 16, 2005 09:30 AM LIFETIME NON-TOBACCO USER [facility] Encounter Notes: All associated encounter notes This section contains the clinical notes associated to the Encounter. Date/Time Encounter Note(s) Provider Source Nov 12, 2023 05:21 PM ADMINISTRATIVE NOT E: LOCAL TITLE: SCHEDULING NOTE ST STANDARD TITLE: ADMINISTRATIVE NOTE DATE OF NOTE: NOV 12, 2023@17:21 ENTRY DATE: NOV 12, 2023@17:21:25 AUTHOR: REBEKA CASEY COSIGNER: URGENCY: STATUS: COMPLETED Additional comments: CALLED AND LEFT MESSAGE FOR PATIENT TO SCHEDULE A NEW PATIENT APPOINTMENT PER INACTIVE LIST ADDITIONAL RESULTS FROM SCHEDULING ATTEMPTS: /zoran/ REBEKA CASEY [facility] ASSTISANT Signed: 11/12/2023 17:22 REBEKA CASEY [facility] Nov 12, 2023 05:20 PM PRIMARY CARE JODI RS: LOCAL TITLE: PC NEW PATIENT NO CONTACT LETTER STL STANDARD TITLE: PRIMARY CARE LETTERS DATE OF NOTE: NOV 12, 2023@17:20 ENTRY DATE: NOV 12, 2023@17:20:50 AUTHOR: ERBEKA CASEY COSIGNER: URGENCY: STATUS: COMPLETED [facility] [address] [place] [address] NOV 12, 2023 CHALINO CASEY [address] [place] [address] DR Berto [place] [address] Dear Chalino Casey, Thank you for your interest in establishing care with a Primary Care Provider at the [facility]. Your Primary Care Provider is the clinical leader of your Patient Aligned Care Team (PACT). Your PACT Team manages and coordinates your comprehensive health care services. Primary Care includes, but is not limited to: diagnosis and management of acute and chronic health conditions, health promotion, disease prevention, overall care management, post-deployment care, and patient and caregiver education. If you would like more information, please visit [email or web address]. We have been unsuccessful in our attempts to contact you to schedule your initial appointment. Based on your current residence, the clinic recommended for your primary care needs is: [address] [address] We are happy to accommodate your request with another clinic, if needed. Please call to schedule your initial appointment. Thank you for your service, and we look forward to hearing from you. Sincerely, REBEKA CASEY [facility] ASSTISCHALINO WHALEY [facility]
--- OUTSIDE RECORDS SUMMARY | 2024-05-10 10:15 | XMS_ITS | CONTINUITY OF CARE DOCUMENT ---
Author Name maddison washburn Address Unknown Organization [facility] Address [address] [address] [place] [address] Phone [phone] Care Team Providers Care Printing Plate Clerk Name Role Phone Bladimir Sanders MD Unavailable BRENT WALTER MD Unavailable [phone] BRENT WALTER MD Unavailable [phone] PROBLEMS Condition Status Date Provider Notes Obesity active Clare Ventimig matilde FIRE INSPECTOR wegoby not covered Rheumatoid arthritis active Bladimir [...] In-person encounter Office Visit Bladimir Sanders MD [facility] Obesity - In-person encounter Office Visit Bladimir Sandesr MD [facility] Obesity - In-person encounter Office Visit Bladimir Sanders MD [facility] Obesity - In-person encounter Office Visit Bladimir Sanders MD [facility] CAD;neg carotid duplex - In-person encounter Office Visit Bladimir Sanders MD [facility] HypokalemiaExposure to SARS-associated coronavirus;neg igg and had vaccine - In-person encounter Office Visit Bladimir Sanders MD [facility] Exposure to SARS-associated coronavirus;neg igg and had vaccine - In-person encounter Office Visit Bladimir Sanders MD [facility] HTN essential;neg duplexAortic root dilatationr/o PVD;neg abiScreeningPREDIABETESAsthmaDyspnea on exertionMitral insufficiency, mild - In-person encounter Office Visit Bladimir Sanders MD [facility] COPD;DUE TO RA?, neg cxr, neg rhc 15Anemia, iron deficiencySleep apnea - In-person encounter Office Visit Bladimir Sanders MD [facility] Obesityr/o Ischemia;ABNL NUC 15, 20% rca 15Aortic root dilatationDiastolic dysfunctionAnemia, iron deficiencyNerve painSleep apneaAdenomatous colonic polyp - In-person encounter Office Visit Bladimir Sanders MD [facility] ObesityScreening - In-person encounter Office Visit Bladimir Sanders MD [facility] ObesitySinus tachycardia;nml tsh, due to pain,Aortic root dilatationMitral regurgitation, mildAnemia, iron deficiencyCAD;neg carotid duplex - In-person encounter Office Visit Bladimir Sanders MD [facility] Hyperlipidemia;NEG CRP and neg lpaBACK PAIN;sciatica sees scodary, on med rxSinus tachycardia;nml tsh, due to pain,HTN essential;neg duplexr/o Ischemia;ABNL NUC 15, 20% rca 15Shortness of breathAortic root dilatationDiastolic dysfunctionMitral regurgitation, mildCOPD;DUE TO RA?, neg cxr, neg rhc 15r/o PVD;neg arvin - In-person encounter Office Visit Bladimir Sanders MD [facility] ObesityRheumatoid arthritisHyperlipidemia;NEG CRP and neg lpaHypertriglyceridemiaDiverticulosis, [...] blood pressure, systolic 132 mm[Hg] Tab moises [place] respiratory rate E&M 12 /min Jenelle León height E&M 70 [in_i] Jenelle León Body Mass Index (Ratio) 31.99 kg/m2 Esther Sanders MD oxygen saturation, oximetry 99 % Jenelle [place] blood pressure, cuff size regular Javon witt [place] blood pressure, diastolic 90 mm[Hg] Javon witt [place] blood pressure, systolic 142 mm[Hg] Tab moises [place] pulse rate 89 /min Jenelle [place] weight E&M 223 [lb_av] Jenelle [place] respiratory rate E&M 12 /min Jenelle León height E&M 70 [in_i] Jenelle [place] Body Mass Index (Ratio) 29.12 kg/m2 Esther [...] Eryn Van weight E&M 214.0 [lb_av] Eryn Pendleton height E&M 70 [in_i] Eryn Van Body [...] Garcia Body Mass Index (Ratio) 36.87 kg/m2 [facility]&M 70 [in_i] Va Garcia blood [...] LinkLogic 0-149 cholesterol, serum 134 mg/dL [employer] [phone]/01/ 04 ferritin, serum 163 ng/mL [employer] 30-400 [...] iron binding capacity, unsaturated 134 ug/dL [employer] [phone]/01/ 04 iron binding capacity, total 293 ug/dL [employer] [phone]/05/ 31 pro brain natriuretic peptide 30.4 pg/mL [...] celecoxib 200 mg capsule active Clare Fallgllaura FIRE INSPECTOR naltrexone 50 mg tablet completed Take 1/2 tablet by mouth once a day 12 tab by mouth daily, if not effective after 1 week may increase to 1/2 tab twice daily 06/10 - 01/22 Clare Caballero FIRE INSPECTOR icosapent ethyl 1 gram capsule completed Take [...] completed 2 capsules by mouth twice daily [place] Coupon Code: [facility]# [id number], PCN# CN, GRP# [id number], ID# [id number] 06/05 - 11/15 Paula Sadi AV-PHOS 250 [...] history of marijuana use no Clare Ventimiglia FIRE INSPECTOR drug use no Clare Ventimig matilde FIRE INSPECTOR alcohol use no Clare Ventimig matilde [facility] smoking status Never smoker Clare Ventim iglia FIRE INSPECTOR alcohol use no Bladimir Gomez smoking status [...] Management Plan continue current therapy Clare Caballero FIRE INSPECTOR HRA, CV Assess/Plan, Angina (inactive) Management Plan [...] Policy type / Coverage type Mouna red libertarian [place] MEDICARE PART B Medicare [id number] RICARDO SCHWARTZ [employer] [facility] [id number] ADVANCE DIRECTIVES Name Date DISCUSSED - NO DECISION MADE TREATMENT PLAN Date Name Performer [id number],S, t ried diet topamz adn adepix in past, did not want wellbuona Bladimir Sanders MD [id number],S, Bladimir bowden MD [id number],S, s evere T he patient is using CPAP on a regular basis. The patient has been benefiting from therapy and should continue use. Bladimir Sanders MD [id number],S, n eg rpr and b`12 Bladimir Sanders MD [id number],S, Bladimir bowden MD [id number],S, Bladimir bowden MD [id number],S, p ft nromal, nml uacr, ml a1 ,neg arvin V IT d OK Bladimir Sanders MD [id number],S, H is updated medication list for this problem includes: Coreg 12.5 Mg Tablet (Carvedilol) ..... Take 1 tablet by mouth twice daily Hydrochlorothiazide 25 Mg Tablet (Hydrochlorothiazide) ..... 1 tablet by mouth once a day Aspirin 81 Mg Tablet,delayed Release (dr/ec) (Aspirin) ..... 1 tablet by mouth once a day BP today: 106/69 P rior BP: 125/77 (11/17/2021) Bladimir Sanders MD [id number],S, p ro 20 Bladimir Sanders MD [id number],S, n uc 18 neg, rca 20% 2014, cor score 338 Bladimir Sanders MD [id number],B, i alireza minerced, had colon, b12 and folate ok Bladimir Sanders MD [id number],S, Bladimir Jacobs kal LINDER [id number],S, Bladimir Serot a [id number],S, t ried diet topamz adn adepix in past, did not want wellbuona Bladimir Sanders MD [id number],S, p ft nromal, nml uacr, ml a1 ,neg arvin V IT d OK Bladimir Sanders MD [id number],BEstherey Arlene bowden MD [id number],S, Bladimir Serot a [id number],S, Bladimir Serot a [id number],B, Bladimir Serot a [id number],C, H is updated medication list for this problem includes: Hydrochlorothiazide 25 Mg Oral Tablet (Hydrochlorothiazide) ..... One tab daily Aspirin Adult Low Dose 81 Mg Oral Tablet Delayed Release (Aspirin) ..... One tab by mouth daily Coreg 12.5 Mg Oral Tablet (Carvedilol) ..... One tab. twice daily BP today: 125/77 P rior BP: 114/70 (10/28/2020) Bladimir Sanders MD [id number],S, p ro 20 Bladimir Sanders MD [id number],B, i alireza correced, had colon, b12 and folate ok Bladimir Sanders MD [id number],S, n uc 18 neg, rca 20% 2014, cor score 338 Bladimir Sanders MD [id number],C,n uc 18 neg, rca 20% 2015, cor score 338 Bladimir Sanders MD [id number],S, t ried diet topamz adn adepix in past, did not want wellbuona Bladimir Sanders MD [id number],B, Bladimir bowden MD [id number],B, Bladimir bowden MD [id number],S, H is updated medication list for this problem includes: Hydrochlorothiazide 25 Mg Oral Tablet (Hydrochlorothiazide) ..... One tab daily Aspirin Adult Low Dose 81 Mg Oral Tablet Delayed Release (Aspirin) ..... One tab by mouth daily Coreg 12.5 Mg Oral Tablet (Carvedilol) ..... One tab. twice daily BP today: 114/70 P rior BP: 136/77 (10/16/2019) Bladimir Sanders MD [id number],S, p ro 20 Bladimir Sanders MD [id number],S, p ft nromal, nml uacr, ml a1 and probnp,neg arvin B 12 FOLATRE AND VIT d OK Bladimir Sanders MD [id number],S, s evere T he patient is using CPAP on a regular basis. The patient has been benefiting from therapy and should continue use. Bladimir Sanders MD [id number],SBladimir MD [id number],SBladimir MD [id number],S, n uc 18 neg, 20% rca 15 Bladimir Sanders MD [id number],SBladimir MD [id number],B, i alireza correced, had colon, b12 and folate ok Bladimir Sanders MD Cardiology:continued weight loss c ould not tolerate naltrexone d/t GI upset W ill try GLP-1 Clare Ventimiglia FIRE INSPECTOR Cardiology:remains m ild E F of 55% [facility] Cardiology:LDL 64 on last labs c rohith statin H is updated medication list for this problem includes: Icosapent Ethyl 1 Gram Capsule (Icosapent ethyl) ..... Take 2 capsules twice a day Atorvastatin 40 Mg Tablet (Atorvastatin) ..... Take 1 tablet by mouth once a day [facility] Cardiology:trig 141 on last labs R emains on vacepa H is updated medication list for this problem includes: Icosapent Ethyl 1 Gram Capsule (Icosapent ethyl) ..... Take 2 capsules twice a day Atorvastatin 40 Mg Tablet (Atorvastatin) ..... Take 1 tablet by mouth once a day [facility] Cardiology:EF 55% on last echo n o new symptoms [facility] Cardiology:BP 132/78 today in office c rohith present meds His updated medication list for this problem includes: Hydrochlorothiazide 25 Mg Tablet (Hydrochlorothiazide) ..... 1 tablet by mouth once a day Coreg 12.5 Mg Tablet (Carvedilol) ..... Take 1 tablet by mouth twice daily Aspirin 81 Mg Tablet,delayed Release (dr/ec) (Aspirin) ..... 1 tablet by mouth once a day [facility] :pro 20 ef 54 Bladimir Sanders MD [...] mouth twice daily universal coupon code: bin# 431301, pcn# cn, grp# ecvascepa, id# [id number] Atorvastatin Calcium 40 Mg Oral Tablet (Atorvastatin [...] tab. twice daily Orders: I NR Strip (CPT-13659) Bladimir Sanders MD New Patient: O rders: H olter Monitor 24 Hr (CPT-32459) C omplete Echo (CPT-02334) S TR - Adenosine (66697) Bladimir Sanders MD New Patient: O rders: H olter Monitor 24 Hr (CPT-26630) C omplete Echo (CPT-29592) S TR - Adenosine (88354) F ull PFT (*) Bladimir Sanders MD [...] AND TOTAL IRON BINDING CAPACITY DLCO - 51289 FRC - 10860 FVC - 06001 Complete Echo ZIO Holter Sleep Study Home HEMOGLOBIN A1c PROBNP, N TERMINAL DLCO - 37760 FRC - 87466 FVC - 05107 RPR (MONITOR) W/REFL TITER IRON AND TOTAL [...] ower EX INR Strip DLCO Order - 47632 FRC Order - 11042 FVC Order - 82686 Full PFT STR - Adenosine Complete Echo [...] MD complete d FVC / MVV - 14373 Bladimir Sanders MD c ompleted FRC - 10286 Bladimir Sanders MD complet ed SpO2 w/o 6min walk/titration Bladimir Sanders MD completed DLCO - 71042 Bladimir Sanders MD comple loli EKG Bladimir Sanders MD complete d SNOMED-CT: 244878585 179888 Current Medications Documented Bladimir Sanders MD completed FVC / MVV with bronchodilator - 91692 Bladimir Sanders MD completed BLOOD COUNT HEMOGLOBIN Bladimir Sanders MD completed FRC - 24774 Bladimir Sanders MD complet ed SpO2 - 13550 Bladimir Sanders MD comple loli DLCO - 84295 Bladimir Sanders MD comple loli GABBY Sanders MD c ompleted SNOMED-CT: 813090162 131978 Current Medications Documented Bladimir Sanders MD completed EKG Bladimir Sanders MD complete d SNOMED-CT: 334740623 885776 Current Medications Documented Bladimir Sanders MD completed EKG Bladimir Sanders MD complete d BLOOD COUNT HEMOGLOBIN Bladimir Sanders MD completed EKG Bladimir Sanders MD complete d
--- OUTSIDE RECORDS SUMMARY | 2024-05-10 10:15 | XMS_ITS | Referral Summary ---
Author Organization [facility] Address [address] [place] [address] Care Team Providers Care Checkroom Attendant Name Role Phone Isidro Heredia MD Unavailable [phone] Tomas Hyman MD Primary Care Provider [phone] Source Comments [facility],non-owned Affiliates and Associated Physician Practices is amultiple site organization consisting of ambulatory clinics and hospital sitesin [place], [place], [place] and [place]. This disclosure is being madepursuant to the Care Everywhere program and may not contain all information available regarding this patient. Last updated 18.[facility] Encounters Date Type Department Care Team Description 04/04/2024 9:45 AM GRADUATION COACH - 04/04/2024 11:59 PM GRADUATION COACH Hospital Encounter [facility] Rheumatology [address] [place] [address] Gloria Smith MD Rheumatology Discharge Disposition: Home or Self Care 02/16/2024 Refill [facility] Rheumatology [address] [place] [address] Gloria Smith MD MEDICATION REFILL 02/08/2024 11:40 AM CDT Office Visit [facility] Rheumatology [address] [place] [address] Gloria Smith MD Rheumatoid arthritis of [...] medication agreement signed 11/06/2012 Overview (11/06/2012): In intermediate card tender dated 10/14/12 Chronic pain syndrome 12/11/2011 Subacromial bursitis 09/04/2011 Anemia 08/30/2009 Osteopenia 08/24/2008 Overview (09/14/2014): Start date 08/13/2007 CT Bone Densitometry GERD (gastroesophageal reflux disease) 9 [facility] with negative rheumatoid factor 07/21/2008 Overview (03/07/2015): Dx start date 06/2004, Remicade 10/2004-08/02/2005 inadequate response, Orencia 09/13/2005-11/22/2005 inadequate response, Rituxan 12/06/2005-05/01/2006, Humira 08/13/2006, Methotrexate 08/2004- 02/08/2013 , Xray hands 2004 - shows scattered tiny erosions in MCP joints. Immunizations Name Administration Dates Next Due Socialtyze primary monoval ent 12+ yr 0.3mL Purple cap 03/22/2021,07/19/2020,06/28/2020 HEP A VACCINE, ADULT 04/08/1997 INFLUENZA VACCINE 02/18/2020,03/04/2019,01/31/20 11 INFLUENZA VACCINE, CELL CULT URE, QUADR. (FLUCELVAX [...] Comments Blood Pressure 144/83 04/04/2024 10:23 AM GRADUATION COACH Pulse 82 04/04/2024 10:23 AM GRADUATION COACH Temperature 36.8 ??C (98.2 ??F) 04/04/2024 1 0:23 AM GRADUATION COACH Respiratory Rate 16 09/18/2023 3:34 PM CDT Oxygen Saturation 100% 01/30/2023 10: 56 AM CDT Inhaled Oxygen Concentration - - Weight 106.4 kg (234 lb 9.6 oz) 024 10:23 AM GRADUATION COACH Height 177.8 cm (5' 10 ) 02/08/2024 11: 48 AM CDT Body Mass Index 33.66 02/08/2024 11:48 AM CDT Plan of Treatment Upcoming Encounters Date Type Department Care Team (Late st Contact Info) Description 06/03/2024 1:00 PM GRADUATION COACH Appointment [facility] - Rheumatology [address] [place] [address] 06/03/2024 2:00 PM GRADUATION COACH Office Visit [facility] - Rheumatology [address] [place] [address] Gloria Smith MD [address] [place] [phone] Procedures Procedure Name Priority Date/Time Associated [...] 01/29/2024 6:08 PM CDT Performed at: ?? [place] [address] [address] [place], [place] ??[id number] Electrical Manufacturing Engineer: Sanchez Wagner [facility], Phone: ??[phone] Gloria Smith MD LAB - CHEMISTRY MARII ARAUJO [facility] INSURANCE BILL [address] [place] [address] * HEPATITIS SCREEN ACUTE ([facility]) (02/10/2022 9:46 [...] Resulting Agency Comment Lab Testing performed at: [facility] [address] ?? Ziyad PENNY [id number] Gloria Smith MD LAB - CHEMISTRY MARII ARAUJO [facility] INSURANCE BILL [address] [place] [address] from Last 3 Months or Most Recently Relevant to Health Maintenance Administered Medications Care Teams Checkroom Attendant Relationship Specialty Start Date End Date Tomas Hyman MD [address] [place] [address] PCP - General Family Medicine 09/05/18 Isidro Heredia MD Rheumatology 02/09/11
--- OUTSIDE RECORDS SUMMARY | 2024-05-10 10:15 | XMS_ITS | Clinical Summary ---
Author Organization [facility] Address [address] [facility] [place] [address] Care Team Providers Care Fairing Worker Name Role Phone Isidro Heredia MD Unavailable Tomas Hyman MD Primary Care Provider Source Comments [facility],non-owned Affiliates and Associated Physician Practices is amultiple site organization consisting of ambulatory clinics and hospital sitesin [place] and [place]. This disclosure is being madepursuant to the Care Everywhere program and may not contain all information available regarding this patient. Last updated 18.[facility] Allergies Active Allergy Reactions Criticality Noted Date [...] agreement signed 11/06/2012 Overview (11/06/2012): In media operator dated 10/14/12 Chronic pain syndrome 12/11/2011 Subacromial bursitis 09/04/2011 Anemia 08/30/2009 Osteopenia 08/24/2008 Overview (09/14/2014): Start date 08/13/2007 CT Bone Densitometry GERD (gastroesophageal reflux disease) 9 Rheumatoid arthritis of [facility] sites with negative rheumatoid factor 07/21/2008 Overview (03/07/2015): Dx start date 06/2004, Remicade 10/2004-08/02/2005 inadequate response, Orencia 09/13/2005-11/22/2005 inadequate response, Rituxan 12/06/2005-05/01/2006, Humira 08/13/2006, Methotrexate 08/2004- 02/08/2013 , Xray hands 2004 - shows scattered tiny erosions in MCP joints. Encounters Date Type Department Care Team Description 04/04/2024 9:45 AM COLLEGE HIRE - 04/04/2024 11:59 PM COLLEGE HIRE Hospital Encounter [facility] - Rheumatology [address] [place] [address] Gloria Smith MD Rheumatology Discharge Disposition: Home or Self Care 02/16/2024 Refill [facility] Rheumatology [address] [place] [address] [phone] Gloria Smith MD MEDICATION REFILL 02/08/2024 11:40 AM CDT Office Visit [facility] Rheumatology [address] [place] [address] [phone] Gloria Smith MD Rheumatoid arthritis of multiple sites with negative rheumatoid factor (HCC) (Primary Dx) from Last 3 Months Immunizations Name Administration Dates Next Due Boost Media primary monoval ent 12+ yr 0.3mL Purple [...] Comments Blood Pressure 144/83 04/04/2024 10:23 AM COLLEGE HIRE Pulse 82 04/04/2024 10:23 AM COLLEGE HIRE Temperature 36.8 ??C (98.2 ??F) 04/04/2024 1 0:23 AM COLLEGE HIRE Respiratory Rate 16 09/18/2023 3:34 PM CDT Oxygen Saturation 100% 01/30/2023 10: 56 AM CDT Inhaled Oxygen Concentration - - Weight 106.4 kg (234 lb 9.6 oz) 024 10:23 AM COLLEGE HIRE Height 177.8 cm (5' 10 ) 02/08/2024 11: 48 AM CDT Body Mass Index 33.66 02/08/2024 11:48 AM CDT Plan of Treatment Upcoming Encounters Date Type Department Care Team (Late st Contact Info) Description 06/03/2024 1:00 PM COLLEGE HIRE Appointment [facility] - Rheumatology [address] [place] [address] [phone] 06/03/2024 2:00 PM COLLEGE HIRE Office Visit [facility] Rheumatology [address] [place] [address] [phone] Gloria Smith MD [address] [place] [address] [phone] Health Maintenance Due Date Last Done Comments [...] VACCINES (1 - Tdap) 01/20/2003 01/19/2003, 01/11/1993 PNEUMOCOCCAL VACCINE 50+ (1 of 1 - PCV) 2012 ZOSTER VACCINE (2 of 2) 04/14/2020 02/18/2020 COVID-19 VACCINE (4 - season) 2023 03/22/2021, 07/19/2020, 06/28/2020 INFLUENZA VACCINE (#1) 2023 0, 02/18/2020, 03/04/2019, Additional history exists DEPRESSION SCREENING 04/30/2024 02/08/2024, 05/19/2022, 06/03/2021 SCREENING FOR DIABETES 01/28/2027 4, 09/17/2023, 07/12/2023, Additional history exists Respiratory Syncytial Virus (RSV) Vaccine Pt: or over 60 yrs (1 - 1-dose 75+ series) 2037 HEPATITIS C SCREENING Completed 02/10/2022 HEPATITIS B VACCINE Aged Out No longe r eligible based on patient's age to complete this topic HIB VACCINE Aged Out No longer eligi ble based on patient's age to complete this topic HPV VACCINE Aged Out No longer eligi ble based on patient's age to complete this topic MENINGOCOCCAL (Group B) VACCINE Aged Out No longer eligible based on patient's age to complete [...] 01/29/2024 6:08 PM CDT Performed at: ?? [place] [address] [address] [place], [place] ??[id number] Front Desk Auxiliary: [facility], Phone: ??[phone] Gloria Smith MD LAB - CHEMISTRY MARII ARAUJO [facility] INSURANCE BILL [address] [place] [address] * HEPATITIS SCREEN ACUTE ([facility]) (02/10/2022 9:46 [...] Comment Lab Testing performed at: [facility] [address] [address] ?? Ziyad PENNY [phone] Gloria Smith MD LAB - CHEMISTRY MARII ARAUJO [facility] INSURANCE BILL [address] [place] [address] from Last 3 Months or Most Recently Relevant to Health Maintenance Care Teams Fairing Worker Relationship Specialty Start Date End Date Tomas Hyman MD [address] [place] [address] PCP - General Family Medicine 09/05/18 Isidro Heredia MD Rheumatology 02/09/11
--- OUTSIDE RECORDS SUMMARY | 2024-05-10 10:16 | XMS_ITS | Encounter Summary ---
Author Organization [facility] Address [address] [place] [address] Care Team Providers Care Print Production Associate Name Role Phone Isidro Heredia MD Unavailable [phone] Tomas Hyman MD Primary Care Provider [phone] Encounter Details Date Type Department Care Team [...] st Contact Info) Description 06/03/2024 1:00 PM GREEN LUMBER GRADER Appointment [facility] Medical [facility] - Rheumatology [address] [place] [address] 06/03/2024 2:00 PM GREEN LUMBER GRADER Office Visit [facility] Medical [facility] - Rheumatology [address] [place] [address] Gloria Smith MD [address] [place] [phone] documented as of this encounter Visit Diagnoses Not on filedocumented in this encounter Care Teams Print Production Associate Relationship Specialty Start Date End Date Tomas Hyman MD [address] [place] [address] PCP - General Family Medicine 09/05/18 Isidro Heredia MD Rheumatology 02/09/11 documented as of this encounter
--- OUTSIDE RECORDS SUMMARY | 2024-05-10 10:16 | XMS_ITS | Encounter Summary ---
Author Organization [facility] Address [address] [facility] [place] [address] Care Team Providers Care Hot Dip Plating Supervisor Name Role Phone Isidro Heredia MD Unavailable [phone] Tomas Hyman MD Primary Care Provider [phone] Reason for Visit * Reason Onset Date Comments General 11/28/2022 Encounter Details Date Type Department Care Team (Late st Contact Info) Description 11/28/2022 Telephone [facility] Medical [facility] - Rheumatology [address] [place] [address] Gloria Smith MD [address] [place] [phone] General Social History Tobacco Use Types [...] st Contact Info) Description 06/03/2024 1:00 PM SWIMMING COACH Appointment [facility] - Rheumatology [address] [place] [address] [phone] 06/03/2024 2:00 PM SWIMMING COACH Office Visit [facility] - Rheumatology [address] [place] [address] Gloria Smith MD [address] [place] [address] [phone] documented as of this encounter Procedures Procedure [...] Agency Comment Lab Testing performed at: [facility] [address] [address] ?? Ziyad PENNY [phone] Gloria Smith MD LAB - CHEMISTRY MARII ARAUJO [facility] INSURANCE BILL [address] [place] [address] * ERYTHROCYTE SEDIMENTATION RATE (11/29/2022 9:11 AM CDT) Erythrocyte Sedimentation Rate Westergren 11 0 - 20 MM/HR [facility] INSURANCE BILL Blood BLOOD SPECIMEN / Unknown 11/29/2022 9:11 AM CDT 11/29/2022 Narrative Resulting Agency Comment Lab Testing performed at: [facility] [address] [address] ?? [facility] [phone] Gloria Smith MD LAB - HEMATOLOGY ORD ERABLES [facility] INSURANCE BILL [address] [place] [address] * COMPREHENSIVE METABOLIC PANEL (11/29/2022 9:11 AM [...] Agency Comment Lab Testing performed at: [facility] [address] [facility] ?? [facility] [phone] Gloria Smith MD LAB - CHEMISTRY MARII ARAUJO [facility] INSURANCE BILL [address] [place] [address] * (ABNORMAL) CBC WITH DIFFERENTIAL (11/29/2022 9:11 [...] x10E9/L [facility] INSURANCE BILL Comment:MPV FL BLOOD ([facility]) 1 1.3 fl 9.4-12.9 Granulocytes % [...] Agency Comment Lab Testing performed at: [facility] [address] [facility] ?? [facility] [phone] Gloria Smith MD LAB - HEMATOLOGY ORD ERABLES [facility] INSURANCE BILL [address] [place] [address] documented in this encounter Visit Diagnoses Diagnosis Rheumatoid arthritis of multiple sites with negative rheumatoid factor (HCC)- Primary documented in this encounter Care Teams Hot Dip Plating Supervisor Relationship Specialty Start Date End Date Tomas Hyman MD [address] [facility] [address] [place] [address] PCP - General Family Medicine 09/05/18 Isidro Heredia MD Rheumatology 02/09/11 documented as of this encounter
--- OUTSIDE RECORDS SUMMARY | 2024-05-10 10:16 | XMS_ITS | Encounter Summary ---
Author Organization [facility] Address [address] [facility] [place] [address] Care Team Providers Care Volleyball Referee Name Role Phone Isidro Heredia MD Unavailable [phone] Tomas Hyman MD Primary Care Provider [phone] Reason for Visit * Treatment (Elective) - Closed Specialty Diagnoses / Procedures Referred By Contsarahi t Referred To Contact Diagnoses Rheumatoid arthritis of multiple sites with negative rheumatoid factor (HCC) Procedures [place] GOLIMUMAB FOR IV USE 1MG Gloria Smith MD [address] [place] [address] [address] Referral ID Status Reason Start Date Expiration Date Visits Re quested Visits Authorized [id number] Closed 05/22/2022 04/29/2023 12 12 Encounter Details Date Type Department Care Team (Latest Contact Info) Description 10/04/2022 12:04 PM CDT - 10/04/2022 11:59 PM CDT Hospital Encounter [facility] [address] [address] Tomas Hyman MD [address] [place] [address] Discharge Disposition: Home or Self [...] tablet by mouth 2 times daily 09/04/2022 simobyvjxhs-xkip-og lysorb, PF, 0.5-1-0.5 % SOLN Instill 1 [...] 1960 10/04/2022 Patient completed scheduled [place] at [facility]. Please call with any questions at [phone]. BP 128/74 Pulse 70 Temp 96.6 ??F [...] st Contact Info) Description 06/03/2024 1:00 PM DRYWALLER Appointment [facility] - Rheumatology [address] [place] [address] 06/03/2024 2:00 PM DRYWALLER Office Visit [facility] - Rheumatology [address] [place] [address] Gloria Smith MD [address] [place] [phone] documented as of this encounter Visit [...] mL/hr documented in this encounter Care Teams Volleyball Referee Relationship Specialty Start Date End Date Tomas Hyman MD [address] [place] [address] PCP - General Family Medicine 09/05/18 Isidro Heredia MD Rheumatology 02/09/11 documented as of this encounter
--- OUTSIDE RECORDS SUMMARY | 2024-05-10 10:16 | XMS_ITS | Encounter Summary ---
Author Organization [facility] Address [address] [place] [address] Care Team Providers Care Vacuum Cleaner Repairer Name Role Phone Isidro Heredia MD Unavailable Tomas Hyman MD Primary Care Provider [phone] Reason for Visit * Treatment (Elective) - Closed Specialty Diagnoses / Procedures Referred By Lawrence shah Referred To Contact Diagnoses Rheumatoid arthritis without rheumatoid factor, multiple sites (HCC) Procedures [place] GOLIMUMAB FOR IV USE 1MG Gloria Smith MD [address] [place] [address] [address] Referral ID Status Reason Start Date Expiration Date Visits Re quested Visits Authorized [id number] Closed 05/18/2023 04/29/2024 8 8 Encounter Details Date Type Department Care Team (Late st Contact Info) Description 05/29/2023 12:47 PM PROFESSOR OF MATHEMATICS - 05/29/2023 11:59 PM PROFESSOR OF MATHEMATICS Hospital Encounter [facility] Medical [facility] - Rheumatology [address] [place] [address] Gloria Smith MD [address] [place] [address] Rheumatology Discharge Disposition: Home or [...] Comments Blood Pressure 126/81 05/29/2023 1:27 PM PROFESSOR OF MATHEMATICS Pulse 79 05/29/2023 1:27 PM PROFESSOR OF MATHEMATICS Temperature 37 ??C (98.6 ??F) 05/29/2023 1:27 PM PROFESSOR OF MATHEMATICS Respiratory Rate - - Oxygen Saturation - - Inhaled Oxygen Concentration - - Weight 95.9 kg (211 lb 6.4 oz) 05/29/2023 1:27 P M PROFESSOR OF MATHEMATICS Height - - Body Mass Index 30.33 01/30/2023 10:56 AM CDT documented in this encounter Discharge Instructions * Discharge Instructions* Shelby Higgins RN - 05/29/2023 1:40 PM PROFESSOR OF MATHEMATICS Discharge Instructions [facility] Rheumatology You have received your infusion [...] through Sunday 9-5 call the office at [phone]. After hours or on the weekend call the exchange at [phone]. If you have had lab work done [...] have chosen [facility] as your Provider ESSOR OF MATHEMATICS documented in this encounter Medications at Time of Discharge Medication Sig Dispensed Refills Start Date End Date aspirin EC (ECOTRIN) 81 MG tablet Take 1 (one) tablet by mouth once daily 90 tablet 11/14/2021 atorvastatin (LIPITOR) 40 MG tablet Take 1 (one) tablet by mouth at bedtime buPROPion (Wellbutrin) 100 MG tablet Take 1 (one) tablet by mouth 2 times daily 09/04/2022 sqwjafrqvif-tfzd-evwy sorb, PF, 0.5-1-0.5 % SOLN Instill 1 [...] 05/29/2023 1:41 PM CST JOSE Chalino Deng [id number] 05/29/2023 Diagnosis: Rheumatoid arthritis without rheumatoid factor, multiple sites ([facility]- [facility]) [M06.09]. Pt denies symptoms of infection [...] treatment? Q 8 weeks Shelby Higgins RN ESSOR OF MATHEMATICS documented in this encounter Plan of Treatment Upcoming Encounters Date Type Department Care Team (Late st Contact Info) Description 06/03/2024 1:00 PM PROFESSOR OF MATHEMATICS Appointment [facility] - Rheumatology [address] [place] [address] [phone] 06/03/2024 2:00 PM PROFESSOR OF MATHEMATICS Office Visit [facility] - Rheumatology [address] [place] [address] Gloria Smith MD [address] [place] [phone] documented as of this encounter Visit Diagnoses [...] filter. $ New Bag/Syringe 05/29/2023 1:30 PM PROFESSOR OF MATHEMATICS 180 mg 220 mL/hr documented in this encounter Care Teams Vacuum Cleaner Repairer Relationship Specialty Start Date End Date Tomas Hyman MD [address] [facility] [address] [place] [address] PCP - General Family Medicine 09/05/18 Isidro Heredia MD Rheumatology 02/09/11 documented as of this encounter
--- OUTSIDE RECORDS SUMMARY | 2024-05-10 10:16 | XMS_ITS | Encounter Summary ---
Author Organization [facility] Address [address] [facility] [place] [address] Care Team Providers Care Trousseau Consultant Name Role Phone Isidro Heredia MD Unavailable [phone] Tomas Hyman MD Primary Care Provider [phone] Reason for Visit * Treatment (Elective) - Closed Specialty Diagnoses / Procedures Referred By Lawrence shah Referred To Contact Diagnoses Rheumatoid arthritis of multiple sites with negative rheumatoid factor (HCC) Procedures [place] GOLIMUMAB FOR IV USE 1MG Gloria Smith MD [address] [place] [address] [address] Referral ID Status Reason Start Date Expiration Date Visits Re quested Visits Authorized [id number] Closed 05/22/2022 04/29/2023 12 12 Encounter Details Date Type Department Care Team (Late st Contact Info) Description 03/28/2023 11:00 AM RN MEDICAL SURGICAL - 03/28/2023 11:59 PM RN MEDICAL SURGICAL Hospital Encounter [facility] Medical [facility] - Rheumatology [address] [place] [address] Gloria Smith MD [address] [place] [address] Rheumatology Discharge Disposition: Home or [...] Comments Blood Pressure 125/72 03/28/2023 11:34 AM RN MEDICAL SURGICAL Pulse 73 03/28/2023 11:34 AM RN MEDICAL SURGICAL Temperature 36.7 ??C (98 ??F) 03/28/2023 11: 34 AM RN MEDICAL SURGICAL Respiratory Rate - - Oxygen Saturation - - Inhaled Oxygen Concentration - - Weight 94.7 kg (208 lb 12.8 oz) 023 11:34 AM RN MEDICAL SURGICAL Height - - Body Mass Index 29.96 01/30/2023 10:56 AM CDT documented in this encounter Discharge Instructions * Discharge Instructions* Shelby Higgins RN - 03/28/2023 11:39 AM RN MEDICAL SURGICAL Discharge Instructions [facility] Rheumatology You have received your infusion treatment [...] Sunday through Sunday5 call the office at [phone]. After hours or on the weekend call the exchange at [phone]. If you have had lab work done [...] have chosen [facility] as your Provider MEDICAL SURGICAL documented in this encounter Medications at Time of Discharge Medication Sig Dispensed Refills Start Date End Date aspirin EC (ECOTRIN) 81 MG tablet Take 1 (one) tablet by mouth once daily 90 tablet 11/14/2021 atorvastatin (LIPITOR) 40 MG tablet Take 1 (one) tablet by mouth at bedtime buPROPion (Wellbutrin) 100 MG tablet Take 1 (one) tablet by mouth 2 times daily 09/04/2022 pcjdbomszqw-qods-bqwa sorb, PF, 0.5-1-0.5 % SOLN Instill 1 [...] 03/28/2023 11:46 AM CST JOSE Chalino Deng [id number] 03/28/2023 Diagnosis: Rheumatoid arthritis without rheumatoid factor, [...] treatment? Q 56 days Shelby Higgins RN MEDICAL SURGICAL documented in this encounter Plan of Treatment Upcoming Encounters Date Type Department Care Team (Late st Contact Info) Description 06/03/2024 1:00 PM RN MEDICAL SURGICAL Appointment [facility] - Rheumatology [address] [place] [address] [phone] 06/03/2024 2:00 PM RN MEDICAL SURGICAL Office Visit [facility] - Rheumatology [address] [place] [address] [phone] Gloria Smith MD [address] [place] [phone] documented as of this encounter Visit Diagnoses [...] filter. $ New Bag/Syringe 03/28/2023 11:44 AM RN MEDICAL SURGICAL 180 mg 200 mL/hr documented in this encounter Care Teams Trousseau Consultant Relationship Specialty Start Date End Date Tomas Hyman MD [address] [place] [address] [address] [place] [address] PCP - General Family Medicine 09/05/18 Isidro Heredia MD Rheumatology 02/09/11 documented as of this encounter
--- OUTSIDE RECORDS SUMMARY | 2024-05-10 10:16 | XMS_ITS | Encounter Summary ---
Author Organization [facility] Address [address] [facility] [place] [address] Care Team Providers Care White Lead Grinder Name Role Phone Isidro Heredia MD Unavailable [phone] Tomas Hyman MD Primary Care Provider [phone] Encounter Details Date Type Department Care Team [...] st Contact Info) Description 06/03/2024 1:00 PM LANDSCAPE SUPERVISOR Appointment [facility] Medical [facility] - Rheumatology [address] [place] [address] 06/03/2024 2:00 PM LANDSCAPE SUPERVISOR Office Visit [facility] - Rheumatology [address] [place] [address] Gloria Smith MD [address] [place] [phone] documented as of this encounter Visit Diagnoses Not on filedocumented in this encounter Care Teams White Lead Grinder Relationship Specialty Start Date End Date Tomas Hyman MD [address] [place] [address] PCP - General Family Medicine 09/05/18 Isidro Heredia MD Rheumatology 02/09/11 documented as of this encounter
--- OUTSIDE RECORDS SUMMARY | 2024-05-10 10:16 | XMS_ITS | Encounter Summary ---
Author Organization [facility] Address [address] [facility] [place] [address] Care Team Providers Care Lumber Stacker Operator Name Role Phone Isidro Heredia MD Unavailable [phone] Tomas Hyman MD Primary Care Provider [phone] Reason for Visit * Reason Onset Date Comments MEDICATION REFILL 09/03/2022 Encounter Details Date Type Department Care Team (Late st Contact Info) Description 09/03/2022 Refill [facility] - Rheumatology [address] [place] [address] Gloria Smith MD [address] [place] [phone] MEDICATION REFILL Social History Tobacco Use [...] 0.7 Recent Labs Component Name 02/10/22 0946 [id number] 52.1 No results for input(s): URICACID in the last 79806 hours. Last ESR: Recent Labs Component Name 02/08/21 1645 06/29/20 1410 02/06/20 1332 SEDRATE 5 13 12 Last 3 CRP: Recent Labs Component Name 02/08/21 1645 06/29/20 1410 02/06/20 1332 CRP <1 <0.20 0.21 documented in this encounter Plan of Treatment Upcoming Encounters Date Type Department Care Team (Late st Contact Info) Description 06/03/2024 1:00 PM UNIFORM FORCE CAPTAIN Appointment [facility] - Rheumatology [address] [place] [address] 06/03/2024 2:00 PM UNIFORM FORCE CAPTAIN Office Visit [facility] - Rheumatology [address] [place] [address] Gloria Smith MD [address] [place] [phone] documented as of this encounter Visit Diagnoses Diagnosis High risk medication use- Primary Encounter for long-term (current) use of other medications Rheumatoid arthritis of multiple sites with negative rheumatoid factor (HCC) Chronic neck pain Cervicalgia Chronic back pain, unspecified back location, unspecified back pain laterality Neuropathy Mononeuritis of unspecified site documented in this encounter Care Teams Lumber Stacker Operator Relationship Specialty Start Date End Date Tomas Hyman MD [address] [facility] [address] [place] [phone] PCP - General Family Medicine 09/05/18 Isidro Heredia MD Rheumatology 02/09/11 documented as of this encounter
--- OUTSIDE RECORDS SUMMARY | 2024-05-10 10:16 | XMS_ITS | Encounter Summary ---
Author Organization [facility] Address [address] [facility] [place] [address] Care Team Providers Care Track Leader Name Role Phone Isidro Heredia MD Unavailable [phone] Tomas Hyman MD Primary Care Provider [phone] Reason for Referral * OP/Amb RFL Auth (Routine) - Pending Review Specialty Diagnoses / Procedures Referred By Contsarahi t Referred To Contact Diagnoses Right shoulder pain, unspecified chronicity Procedures [place] DRAIN/INJECT LARGE JOINT/BURSA Gloria Smith MD [address] [place] [phone] Referral ID Status Reason Start Date Expiration Date V isits Requested Visits Authorized [id number] Pending Review 09/18/2023 09/17/2024 1 1 Reason for Visit * Reason Comments Follow-up Osteopenia Encounter Details Date Type Department Care Team (Late st Contact Info) Description 09/18/2023 3:40 PM CDT Office Visit [facility] - Rheumatology [address] [place] [address] Gloria Smith MD [address] [place] [phone] Rheumatoid arthritis of multiple sites with [...] on rheumatoid arthritis HISTORY OF PRESENT ILLNESS: Chalnio Deng is a 62 year old white [...] Medical History: Diagnosis Date RA (rheumatoid arthritis) ([facility]) Past Surgical History: Procedure Laterality Date [...] results to us. - took alendronate from [id number]. - takes otc vit D daily. ORDERS: [...] st Contact Info) Description 06/03/2024 1:00 PM COSMETIC DENTIST Appointment [facility] - Rheumatology [address] [place] [address] [phone] 06/03/2024 2:00 PM COSMETIC DENTIST Office Visit [facility] - Rheumatology [address] [place] [address] [phone] Gloria Smith MD [address] [place] [phone] Scheduled Orders Name Type Priority Associated Diagnoses [...] Shoulder documented in this encounter Care Teams Track Leader Relationship Specialty Start Date End Date Tomas Hyman MD [address] [place] [address] PCP - General Family Medicine 09/05/18 Isidro Heredia MD Rheumatology 02/09/11 documented as of this encounter
--- OUTSIDE RECORDS SUMMARY | 2024-05-10 10:16 | XMS_ITS | Encounter Summary ---
Author Organization [facility] Address [address] [facility] [address] [facility] [place] [address] Care Team Providers Care General Road Foreman Name Role Phone Isidro Heredia MD Unavailable [phone] Tomas Hyman MD Primary Care Provider [phone] Encounter Details Date Type Department Care Team [...] Contact Info) Description 06/03/2024 1:00 PM OPERATIONS AND MAINTENANCE MANAGER Appointment [facility] Medical [facility] - Rheumatology [address] [place] [address] 06/03/2024 2:00 PM OPERATIONS AND MAINTENANCE MANAGER Office Visit [facility] Medical [facility] - Rheumatology [address] [place] [address] Gloria Smith MD [address] [place] [phone] documented as of this encounter Visit Diagnoses Not on filedocumented in this encounter Care Teams General Road Foreman Relationship Specialty Start Date End Date Tomas Hyman MD [address] [place] [address] PCP - General Family Medicine 09/05/18 Isidro Heredia MD Rheumatology 02/09/11 documented as of this encounter
--- OUTSIDE RECORDS SUMMARY | 2024-05-10 10:16 | XMS_ITS | Encounter Summary ---
Author Organization [facility] Address [address] [facility] [place] [address] Care Team Providers Care Traffic Sign Supervisor Name Role Phone Isidro Heredia MD Unavailable [phone] Tomas Hyman MD Primary Care Provider [phone] Reason for Visit * Reason Onset Date Comments MEDICATION REFILL 11/27/2022 Encounter Details Date Type Department Care Team (Late st Contact Info) Description 11/27/2022 Refill [facility] Medical [facility] - Rheumatology [address] [place] [address] Gloria Smith MD [address] [place] [phone] MEDICATION REFILL Social History Tobacco Use [...] st Contact Info) Description 06/03/2024 1:00 PM AUTOCLAVE OPERATOR Appointment [facility] - Rheumatology [address] [place] [address] 06/03/2024 2:00 PM AUTOCLAVE OPERATOR Office Visit [facility] - Rheumatology [address] [place] [address] Gloria Smith MD [address] [place] [phone] documented as of this encounter Visit Diagnoses Diagnosis Rheumatoid arthritis of multiple sites with negative rheumatoid factor (HCC) Neuropathy Mononeuritis of unspecified site documented in this encounter Care Teams Traffic Sign Supervisor Relationship Specialty Start Date End Date Tomas Hyman MD [address] [place] [address] PCP - General Family Medicine 09/05/18 Isidro Heredia MD Rheumatology 02/09/11 documented as of this encounter
--- OUTSIDE RECORDS SUMMARY | 2024-05-10 10:16 | XMS_ITS | Encounter Summary ---
Author Organization [facility] Address [address] [place] [address] Care Team Providers Care Autopsy Pathologist Name Role Phone Isidro Heredia MD Unavailable [phone] Tomas Hyman MD Primary Care Provider [phone] Reason for Referral * OP/Amb RFL Auth (Routine) - Pending Review Specialty Diagnoses / Procedures Referred By Contsarahi t Referred To Contact Diagnoses Right shoulder pain, unspecified chronicity Procedures [place] DRAIN/INJECT LARGE JOINT/BURSA Gloria Smith MD [address] [place] [address] Referral ID Status Reason Start Date Expiration Date V isits Requested Visits Authorized [id number] Pending Review 05/29/2023 05/28/2024 1 1 RONMENTAL COORDINATOR Reason for Visit * Reason Comments Arthritis Encounter Details Date Type Department Care Team (Late st Contact Info) Description 05/29/2023 1:40 PM ENVIRONMENTAL COORDINATOR Office Visit [facility] - Rheumatology [address] [place] [address] [facility] [place] [address] Rheumatoid arthritis of multiple sites [...] improve after steroid injection and simponi infusion. RONMENTAL COORDINATOR * Gloria Smith MD - 05/29/2023 1:42 [...] radiation therapy. Will schedule follow up with [facility] D[facility]atology at [address] [place] [address]. Having more back pain and stiffness for [...] Date ??? RA (rheumatoid arthritis) ([facility]) Past Surgical History: Procedure Laterality [...] results to us. - took alendronate from [id number]. RONMENTAL COORDINATOR documented in this encounter Plan of Treatment Upcoming Encounters Date Type Department Care Team (Late st Contact Info) Description 06/03/2024 1:00 PM ENVIRONMENTAL COORDINATOR Appointment [facility] - Rheumatology [address] [place] [address] 06/03/2024 2:00 PM ENVIRONMENTAL COORDINATOR Office Visit [facility] - Rheumatology [address] [place] [address] Gloria Smith MD [address] [place] [phone] Scheduled Orders Name Type Priority Associated [...] C-REACTIVE PROTEIN Routine 05/29/2023 2: 35 PM ENVIRONMENTAL COORDINATOR Rheumatoid arthritis of multiple sites with negative rheumatoid factor (HCC) ERYTHROCYTE SEDIMENTATION RATE Routine 05/29/2023 2:35 PM ENVIRONMENTAL COORDINATOR Rheumatoid arthritis of multiple sites with negative rheumatoid factor (HCC) CBC W AUTO DIFFERENTIAL Routine 05/29/2023 2:35 PM ENVIRONMENTAL COORDINATOR Rheumatoid arthritis of multiple sites with negative rheumatoid factor (HCC) COMPREHENSIVE METABOLIC PANEL Routine 05/29/2023 2:35 PM ENVIRONMENTAL COORDINATOR Rheumatoid arthritis of multiple sites with negative [...] 01/29/2024 6:08 PM CDT Performed at: ?? [facility] [address] [address] , [place], [place] ??[id number] Hot Wire Glass Tube Cutter: Sanchez Wagner [facility], Phone: ??[phone] Gloria Smith MD LAB - CHEMISTRY MARII ARAUJO [facility] INSURANCE BILL [address] [place] [address] * (ABNORMAL) CBC WITH DIFFERENTIAL (01/29/2024 10:37 [...] 6:08 PM CDT Performed at: ??01 - [place] [address] [place], [place] ??[id number] Hot Wire Glass Tube Cutter: Sanchez Wagner [facility], Phone: ??[phone] Gloria Smith MD LAB - HEMATOLOGY ORD ERABLES [facility] INSURANCE BILL [address] [place] [address] * (ABNORMAL) COMPREHENSIVE METABOLIC PANEL (09/17/2023 2:54 [...] performed at: [facility] [address] [facility] [phone] Gloria Smith MD LAB - CHEMISTRY MARII ARAUJO [facility] INSURANCE BILL [address] [place] [address] * (ABNORMAL) CBC WITH DIFFERENTIAL (09/17/2023 2:54 [...] Resulting Agency Comment Lab Testing performed at: [facility] [address] [facility] [phone] Gloria Smith MD LAB - HEMATOLOGY ORD ERABLES [facility] INSURANCE BILL [address] [place] [address] * COMPREHENSIVE METABOLIC PANEL (07/12/2023 3:20 PM [...] Agency Comment Lab Testing performed at: [facility] [address] ??[facility] [phone] Gloria Smith MD LAB - CHEMISTRY MARII ARAUJO [facility] INSURANCE BILL [address] [place] [address] * CBC WITH DIFFERENTIAL (07/12/2023 3:20 PM [...] Agency Comment Lab Testing performed at: [facility] [address] [facility] ??[facility] [id number] Gloria Smith MD LAB - HEMATOLOGY ORD ERABLES [facility] INSURANCE BILL [address] [place] [address] * C-REACTIVE PROTEIN (05/29/2023 2:35 PM ENVIRONMENTAL COORDINATOR) C-Reactive Protein 0.49 <=0.50 mg/dL [facility] INSURANCE BILL Blood BLOOD SPECIMEN / Unknown 05/29/2023 2:35 PM ENVIRONMENTAL COORDINATOR 05/29/2023 Narrative Resulting Agency Comment Lab Testing performed at: [place] [address] [address] ?? [place] [phone] Gloria Smith MD LAB - CHEMISTRY MARII ARAUJO Performing Organization Address [facility] Co de Phone Number [facility] INSURANCE BILL [address] [place] [address] * (ABNORMAL) ERYTHROCYTE SEDIMENTATION RATE (05/29/2023 2:35 PM ENVIRONMENTAL COORDINATOR) Erythrocyte Sedimentation Rate Westergren 23(H) 0 - 20 MM/HR [facility] INSURANCE BILL Blood BLOOD SPECIMEN / Unknown 05/29/2023 2:35 PM ENVIRONMENTAL COORDINATOR 05/29/2023 Narrative Resulting Agency Comment Lab Testing performed at: [facility] [address] ?? [place] [phone] Gloria Smith MD LAB - HEMATOLOGY ORD ERABLES Performing Organization Address City/[facility]/ZIP Co de Phone Number [facility] INSURANCE BILL [address] [place] [address] * (ABNORMAL) COMPREHENSIVE METABOLIC PANEL (05/29/2023 2:35 PM ENVIRONMENTAL COORDINATOR) Glucose 107(H) 70 - 105 mg/dL [facility] [...] BLOOD SPECIMEN / Unknown 05/29/2023 2:35 PM ENVIRONMENTAL COORDINATOR 05/29/2023 Narrative Resulting Agency Comment Lab Testing performed at: [address] ?? [facility] [phone] Gloria Smith MD LAB - CHEMISTRY MARII ARAUJO [facility] INSURANCE BILL [address] [place] [address] * (ABNORMAL) CBC WITH DIFFERENTIAL (05/29/2023 2:35 PM ENVIRONMENTAL COORDINATOR) Pathologist [facility] WBC 8.7 4.0 - 10.7 x10E9/L [facility] [...] BLOOD SPECIMEN / Unknown 05/29/2023 2:35 PM ENVIRONMENTAL COORDINATOR 05/29/2023 Narrative Resulting Agency Comment Lab Testing performed at: [place] [address] [address] ?? [place] [id number] Gloria Smith MD LAB - HEMATOLOGY ORD ERABLES [facility] INSURANCE BILL [address] [place] [address] documented in this encounter Visit Diagnoses Diagnosis [...] at 1700 $ Given 05/29/2023 8:34 AM ENVIRONMENTAL COORDINATOR Right Shoulder methylPREDNISolone acetate (DEPO-Medrol) injection 40 mg 40 mg, Intra-articular, ONCE, 1 dose, On Sun05/29/23 at 1700 $ Given 05/29/2023 8:36 AM ENVIRONMENTAL COORDINATOR 40 mg Ri ght Shoulder documented in this encounter Care Teams Autopsy Pathologist Relationship Specialty Start Date End Date Tomas Hyman MD [address] [facility] [address] [place] [address] PCP - General Family Medicine 09/05/18 Isidro Heredia MD Rheumatology 02/09/11 documented as of this encounter
--- OUTSIDE RECORDS SUMMARY | 2024-05-10 10:16 | XMS_ITS | Encounter Summary ---
Author Organization [facility] Address [address] [facility] [place] [address] Care Team Providers Care Insurance Claims Processor Name Role Phone Isidro Heredia MD Unavailable [phone] Tomas Hyman MD Primary Care Provider [phone] Encounter Details Date Type Department Care Team (Late Contact Info) Description 01/04/2024 Orders Only [facility] - Rheumatology [address] [place] [address] Gloria Smith MD [address] [place] [phone] Rheumatoid arthritis of multiple sites with [...] (Late Contact Info) Description 06/03/2024 1:00 PM SOLAR INSTALLATION TECHNICIAN Appointment [facility] - Rheumatology [address] [place] [address] 06/03/2024 2:00 PM SOLAR INSTALLATION TECHNICIAN Office Visit [facility] - Rheumatology [address] [place] [address] [place] [phone] Gloria Smith MD [address] [place] [address] documented as of this encounter [...] 01/29/2024 6:08 PM CDT Performed at: ?? [facility] [address] [place] ??[id number] Hoe Worker: Sanchez Wagner [facility], Phone: ??[phone] Gloria Smith MD LAB - CHEMISTRY MARII ARAUJO [facility] INSURANCE BILL [address] [place] [address] * (ABNORMAL) CBC WITH DIFFERENTIAL (01/29/2024 10:37 [...] 01/29/2024 6:08 PM CDT Performed at: ?? [facility] [address] , [place], [place] ??[id number] Hoe Worker: Sanchez Wagner [facility], Phone: ??[phone] Gloria Smith MD LAB - HEMATOLOGY ORD ERABLES [facility] INSURANCE BILL [address] [place] [address] documented in this encounter Visit Diagnoses Diagnosis Rheumatoid arthritis of multiple sites with negative rheumatoid factor (HCC) documented in this encounter Care Teams Insurance Claims Processor Relationship Specialty Start Date End Date Tomas Hyman MD [address] [place] [address] PCP - General Family Medicine 09/05/18 Isidro Heredia MD Rheumatology 02/09/11 documented as of this encounter
--- OUTSIDE RECORDS SUMMARY | 2024-05-10 10:16 | XMS_ITS | Encounter Summary ---
Author Organization [facility] Address [address] [facility] [place] [address] Care Team Providers Care Senior Project Accountant Name Role Phone Isidro Heredia MD Unavailable [phone] Tomas Hyman MD Primary Care Provider [phone] Reason for Visit * Treatment (Elective) - Closed Specialty Diagnoses / Procedures Referred By Lawrence shah Referred To Contact Diagnoses Rheumatoid arthritis without rheumatoid factor, multiple sites (HCC) Procedures ID GOLIMUMAB FOR IV USE 1MG Gloria Smith MD [address] [place] [address] [address] Referral ID Status Reason Start Date Expiration Date Visits Re quested Visits Authorized [id number] Closed 05/18/2023 04/29/2024 8 8 Encounter Details Date Type Department Care Team (Late st Contact Info) Description 09/28/2023 8:45 AM CDT - 09/28/2023 11:59 PM CDT Hospital Encounter [facility] Medical [facility] - Rheumatology [address] [place] [address] Gloria Smith MD [address] [place] [address] Rheumatology Discharge Disposition: Home or [...] - 09/28/2023 9:29 AM CDT Discharge Instructions [facility] Rheumatology You have received your infusion treatment [...] through Sunday 9-5 call the office at [phone], or infusion room on [phone]. After hours or on the weekend call [...] tablet by mouth 2 times daily 09/04/2022 fueblieqplo-mnor-fajw sorb, PF, 0.5-1-0.5 % SOLN Instill 1 [...] - 09/28/2023 9:33 AM CDT JOSE Deng [id number] 09/28/2023 Diagnosis: Rheumatoid arthritis without rheumatoid factor, [...] Contact Info) Description 06/03/2024 1:00 PM INDUSTRIAL SALES REPRESENTATIVE Appointment [facility] - Rheumatology [address] [place] [address] 06/03/2024 2:00 PM INDUSTRIAL SALES REPRESENTATIVE Office Visit [facility] - Rheumatology [address] [place] [address] Gloria Smith MD [address] [place] [phone] documented as of this encounter Visit [...] documented in this encounter Care Teams Senior Project Accountant Relationship Specialty Start Date End Date Tomas Hyman MD [address] [place] [address] PCP - General Family Medicine 09/05/18 Isidro Heredia MD Rheumatology 02/09/11 documented as of this encounter
--- OUTSIDE RECORDS SUMMARY | 2024-05-10 10:16 | XMS_ITS | Encounter Summary ---
Author Organization [facility] Address [address] [place] [address] Care Team Providers Care Workgroup Leader Name Role Phone Isidro Heredia MD Unavailable [phone] Tomas Hyman MD Primary Care Provider [phone] Reason for Visit * Reason Comments Rheumatoid Arthritis Encounter Details Date Type Department Care Team (Late st Contact Info) Description 02/08/2024 11:40 AM CDT Office Visit [facility] - Rheumatology [address] [place] [address] Gloria Smith MD [address] [place] [phone] Rheumatoid arthritis of multiple sites with [...] History: Diagnosis Date RA (rheumatoid arthritis) ([facility]) Past Surgical History: Procedure Laterality Date Tonsillectomy [...] results to us. - took alendronate from 9273-3395. - takes otc vit D daily. ORDERS: [...] st Contact Info) Description 06/03/2024 1:00 PM TIMEKEEPER Appointment [facility] - Rheumatology [address] [place] [address] 06/03/2024 2:00 PM TIMEKEEPER Office Visit [facility] - Rheumatology [address] [place] [address] Gloria Smith MD [address] [place] [phone] Scheduled Orders Name Type Priority Associated Diagnoses [...] 03/22/1987 documented in this encounter Care Teams Workgroup Leader Relationship Specialty Start Date End Date Tomas Hyman MD [address] [facility] [address] [place] [address] PCP - General Family Medicine 09/05/18 Isidro Heredia MD Rheumatology 02/09/11 documented as of this encounter
--- OUTSIDE RECORDS SUMMARY | 2024-05-10 10:16 | XMS_ITS | Encounter Summary ---
Author Organization [facility] Address [address] [facility] [place] [address] Care Team Providers Care State Auditor Name Role Phone Isidro Heredia MD Unavailable [phone] Tomas Hyman MD Primary Care Provider [phone] Encounter Details Date Type Department Care Team (Late Contact Info) Description 07/20/2023 Orders Only [facility] - Rheumatology [address] [place] [address] Gloria Smith MD [address] [place] [phone] Rheumatoid arthritis of multiple sites with [...] (Late Contact Info) Description 06/03/2024 1:00 PM SLUDGE MILL OPERATOR Appointment [facility] - Rheumatology [address] [place] [address] 06/03/2024 2:00 PM SLUDGE MILL OPERATOR Office Visit [facility] - Rheumatology [address] [place] [address] Gloria Smith MD [address] [place] [address] documented as of this encounter Visit Diagnoses Diagnosis Rheumatoid arthritis 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
--- OUTSIDE RECORDS SUMMARY | 2024-05-10 10:16 | XMS_ITS | Patient Health Summary ---
Author Organization [facility] Address [address] [place] [address] Care Team Providers Care Physician Intensivist Name Role Phone Isidro Heredia MD Unavailable [phone] Tomas Hyman MD Primary Care Provider [phone] Note from [facility],non-owned Affiliates and Associated Physician Practices is amultiple site organization consisting of ambulatory clinics and hospital sitesin [place], [place], [place] and [place]. This disclosure is being madepursuant to the Care Everywhere program and may not contain all information available regarding this patient. Last updated 18.[facility] Allergies * Hydroxychloroquine(Eye Discomfort) -High Criticality * [...] 1 Tab by mouth once daily * Klmonlyerad-Kxxjkgecg-Bpd C-Mn (GLUCOSAMINE CHONDR 1500 COMPLX PO) Take [...] mg by mouth 2 times daily * ttispwtswqz-fgbm-lovoklqj, PF, 0.5-1-0.5 % SOLN Instill 1 drop [...] disease) 9 [facility] with negative rheumatoid factor 07/21/2008 Immunizations * Covid Pfizer primary monovalent 12+ yr 0.3mL Purple cap(Given 03/22/2021, 07/19/2020, 06/28/2020) * HEP A VACCINE, ADULT(Given 04/08/1997) * INFLUENZA VACCINE(Given 02/18/2020, 03/04/2019, 01/30/2011) * INFLUENZA VACCINE, CELL [...] Comments Blood Pressure 144/83 04/04/2024 10:23 AM [employer] Pulse 82 04/04/2024 10:23 AM [employer] Temperature 36.8 ??C (98.2 ??F) 04/04/2024 1 0:23 AM [employer] Respiratory Rate 16 09/18/2023 3:34 PM CDT Oxygen Saturation 100% 01/30/2023 10: 56 AM CDT Inhaled Oxygen Concentration - - Weight 106.4 kg (234 lb 9.6 oz) 024 10:23 AM [employer] Height 177.8 cm (5' 10 ) 02/08/2024 [...] of multiple sites with negative rheumatoid factor ([facility]) * ERYTHROCYTE SEDIMENTATION RATE(Performed 06/14/2015) Performed for Rheumatoid arthritis of multiple sites with negative rheumatoid factor ([facility]) * COMPREHENSIVE METABOLIC PANEL(Performed 06/14/2015) Performed for Rheumatoid arthritis of multiple sites with negative rheumatoid factor ([facility]) * CBC W AUTO DIFFERENTIAL(Performed 06/14/2015) Performed for Rheumatoid arthritis of multiple sites with negative rheumatoid factor ([facility]) * ERYTHROCYTE SEDIMENTATION RATE(Performed 04/07/2015) Performed for Rheumatoid arthritis of multiple 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 factor ([facility]) * C-REACTIVE PROTEIN(Performed 04/07/2015) Performed for Rheumatoid arthritis of multiple 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 factor ([facility]) * COMPREHENSIVE METABOLIC PANEL(Performed 04/07/2015) Performed for Rheumatoid arthritis of multiple 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 factor ([facility]) * CBC W AUTO DIFFERENTIAL(Performed 04/07/2015) Performed for Rheumatoid arthritis of multiple 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 factor ([facility]) * LIPID PROFILE W TCHOL/HDL(Performed 03/04/2015) Performed for Rheumatoid arthritis(714.0) ([facility]) * ERYTHROCYTE SEDIMENTATION RATE(Performed 03/04/2015) Performed for Rheumatoid arthritis(714.0) ([facility]) * COMPREHENSIVE METABOLIC PANEL(Performed 03/04/2015) Performed for Rheumatoid arthritis(714.0) ([facility]) * CBC W AUTO DIFFERENTIAL(Performed 03/04/2015) Performed for Rheumatoid arthritis(714.0) ([facility]) * ERYTHROCYTE SEDIMENTATION RATE(Performed 01/07/2015) Performed for Rheumatoid arthritis(714.0) ([facility]) * COMPREHENSIVE METABOLIC PANEL(Performed 01/07/2015) Performed for Rheumatoid arthritis(714.0) ([facility]) * CBC W AUTO DIFFERENTIAL(Performed 01/07/2015) Performed for Rheumatoid arthritis(714.0) ([facility]) * PAIN MANAGEMENT PROCEDURE TIME(Performed 12/29/2014) Performed for Displacement of lumbar intervertebral disc without myelopathy, Thoracic or lumbosacral neuritis or radiculitis, unspecified * PAIN MANAGEMENT PROCEDURE TIME(Performed 12/21/2014) Performed for Displacement of lumbar intervertebral disc without myelopathy, Thoracic or lumbosacral neuritis or radiculitis, unspecified * ERYTHROCYTE SEDIMENTATION RATE(Performed 11/05/2014) Performed for Rheumatoid arthritis(714.0) ([facility]) * COMPREHENSIVE METABOLIC PANEL(Performed 11/05/2014) Performed for Rheumatoid arthritis(714.0) ([facility]) * CBC W AUTO DIFFERENTIAL(Performed 11/05/2014) Performed for Rheumatoid arthritis(714.0) ([facility]) * RHEUMATOID FACTOR BLOOD QUANTITATIVE(Performed 08/12/2014) Performed for Rheumatoid arthritis(714.0) ([facility]) * ERYTHROCYTE SEDIMENTATION RATE(Performed 08/12/2014) Performed for Rheumatoid arthritis(714.0) ([facility]) * C-REACTIVE PROTEIN(Performed 08/12/2014) Performed for Rheumatoid arthritis(714.0) ([facility]) * COMPREHENSIVE METABOLIC PANEL(Performed 08/12/2014) Performed for Rheumatoid arthritis(714.0) ([facility]) * CYCLIC CITRUL PEPTIDE ANTIBODY IGG/IGA (CCP)(Performed 08/12/2014) Performed for Rheumatoid arthritis(714.0) ([facility]) * CBC W AUTO DIFFERENTIAL(Performed 08/12/2014) Performed for Rheumatoid arthritis(714.0) ([facility]) * KMAI STAINING PATTERNS REFLEXED(Performed 08/12/2014) Performed for Rheumatoid arthritis(714.0) ([facility]) * ROSA BLOOD SCREEN W/REFLEX TITER(Performed 08/12/2014) Performed for Rheumatoid arthritis(714.0) ([facility]) * CYCLIC CITRUL PEPTIDE ANTIBODY IGG/IGA (CCP)(Performed 08/12/2014) Performed for Rheumatoid arthritis(714.0) ([facility]) * C-REACTIVE PROTEIN(Performed 08/12/2014) Performed for Rheumatoid arthritis(714.0) ([facility]) * COMPREHENSIVE METABOLIC PANEL(Performed 08/12/2014) Performed for Rheumatoid arthritis(714.0) ([facility]) * CBC W AUTO DIFFERENTIAL(Performed 08/12/2014) Performed for Rheumatoid arthritis(714.0) ([facility]) * XR HAND BILAT 1VW(Performed 08/12/2014) Performed for Rheumatoid arthritis(714.0) ([facility]) * ERYTHROCYTE SEDIMENTATION RATE(Performed 06/08/2014) Performed for Rheumatoid Arthritis ([facility]) * COMPREHENSIVE METABOLIC PANEL(Performed 06/08/2014) Performed for Rheumatoid Arthritis ([facility]) * CBC W AUTO DIFFERENTIAL(Performed 06/08/2014) Performed for Rheumatoid Arthritis ([facility]) * CARDIAC EKG ORDER(Performed 05/22/2014) * [...] SEDIMENTATION RATE(Performed 03/12/2014) Performed for Rheumatoid Arthritis ([facility]) * COMPREHENSIVE METABOLIC PANEL(Performed 03/12/2014) Performed for Rheumatoid Arthritis ([facility]) * CBC W AUTO DIFFERENTIAL(Performed 03/12/2014) Performed for Rheumatoid Arthritis ([facility]) * PAIN MANAGEMENT PROCEDURE TIME(Performed 03/10/2014) Performed for Displacement Of Lumbar Intervertebral Disc Without Myelopathy, Thoracic or lumbosacral neuritis or radiculitis, unspecified * XR CERVICAL SPINE 2 OR 3VW(Performed 02/25/2014) Performed for Rheumatoid Arthritis ([facility]) * COMPREHENSIVE METABOLIC PANEL(Performed 01/14/2014) Performed for Rheumatoid Arthritis ([facility]) * ERYTHROCYTE SEDIMENTATION RATE(Performed 01/14/2014) Performed for Rheumatoid Arthritis ([facility]) * CBC W AUTO DIFFERENTIAL(Performed 01/14/2014) Performed for Rheumatoid Arthritis ([facility]) * XR LUMBAR SPINE 2 OR 3VW(Performed 01/06/2014) Performed for Lumbar radiculopathy * MRI LUMBAR SPINE WO CONTRAST(Performed 01/02/2014) Performed for Lumbar radiculopathy * IMAGING/RADIOLOGY/XRAY RESULTS ORDER(Performed 01/02/2014) * LIPID PROFILE W TCHOL/HDL(Performed 12/12/2013) Performed for Other And Unspecified Hyperlipidemia * COMPREHENSIVE METABOLIC PANEL(Performed 11/12/2013) Performed for Rheumatoid Arthritis ([facility]) * ERYTHROCYTE SEDIMENTATION RATE(Performed 11/12/2013) Performed for Rheumatoid Arthritis ([facility]) * CBC W AUTO DIFFERENTIAL(Performed 11/12/2013) Performed for Rheumatoid Arthritis ([facility]) * ERYTHROCYTE SEDIMENTATION RATE(Performed 09/04/2013) Performed for Rheumatoid Arthritis ([facility]) * COMPREHENSIVE METABOLIC PANEL(Performed 09/04/2013) Performed for Rheumatoid Arthritis ([facility]) * CBC W AUTO DIFFERENTIAL(Performed 09/04/2013) [...] METABOLIC PANEL(Performed 04/11/2013) Performed for Rheumatoid Arthritis ([facility]) * CBC W AUTO DIFFERENTIAL(Performed 04/11/2013) Performed for Rheumatoid Arthritis ([facility]) * CT CHEST ABDOMEN PELVIS W CONT(Performed 03/25/2013) Performed for Pleurisy, Abdominal pain * XR CHEST 2VW(Performed 03/24/2013) Performed for Pleurisy * URINALYSIS AUTO - POINT OF CARE(Performed 03/24/2013) Performed for Rheumatoid Arthritis ([facility]) * ERYTHROCYTE SEDIMENTATION RATE(Performed 03/21/2013) Performed for Rheumatoid Arthritis ([facility]) * C-REACTIVE PROTEIN(Performed 03/21/2013) Performed for Rheumatoid Arthritis ([facility]) * COMPREHENSIVE METABOLIC PANEL(Performed 03/21/2013) Performed for Rheumatoid Arthritis ([facility]) * CBC W AUTO DIFFERENTIAL(Performed 03/21/2013) Performed for Rheumatoid Arthritis ([facility]) * KAMI STAINING PATTERNS REFLEXED(Performed 02/10/2013) Performed for Rheumatoid Arthritis ([facility]) * CYCLIC CITRUL PEPTIDE ANTIBODY IGG/IGA (CCP)(Performed 02/10/2013) Performed for Rheumatoid Arthritis ([facility]) * RHEUMATOID FACTOR BLOOD QUANTITATIVE(Performed 02/10/2013) Performed for Rheumatoid Arthritis ([facility]) * ROSA BLOOD SCREEN W/REFLEX TITER(Performed 02/10/2013) Performed for Rheumatoid Arthritis ([facility]) * ERYTHROCYTE SEDIMENTATION RATE(Performed 02/10/2013) Performed for Rheumatoid Arthritis ([facility]) * C-REACTIVE PROTEIN(Performed 02/10/2013) Performed for Rheumatoid Arthritis ([facility]) * COMPREHENSIVE METABOLIC PANEL(Performed 02/10/2013) Performed [...] METABOLIC PANEL(Performed 09/02/2012) Performed for Rheumatoid arthritis ([facility]) * CBC W AUTO DIFFERENTIAL(Performed 09/02/2012) Performed for Rheumatoid arthritis ([facility]) * QUANTIFERON IN TUBE REFLEXED(Performed 07/22/2012) Performed [...] METABOLIC PANEL(Performed 06/24/2012) Performed for Rheumatoid arthritis ([facility]) * CBC W AUTO DIFFERENTIAL(Performed 06/24/2012) Performed [...] C-REACTIVE PROTEIN(Performed 10/09/2011) Performed for Rheumatoid arthritis ([facility]) * COMPREHENSIVE METABOLIC PANEL(Performed 10/09/2011) Performed for Rheumatoid arthritis ([facility]) * CBC W AUTO DIFFERENTIAL(Performed 10/09/2011) Performed for Rheumatoid arthritis ([facility]) * ERYTHROCYTE SEDIMENTATION RATE(Performed 09/04/2011) Performed for Rheumatoid arthritis ([facility]) * C-REACTIVE PROTEIN(Performed 09/04/2011) Performed for Rheumatoid arthritis ([facility]) * COMPREHENSIVE METABOLIC PANEL(Performed 09/04/2011) Performed for Rheumatoid arthritis ([facility]) * CBC W AUTO DIFFERENTIAL(Performed 09/04/2011) Performed for Rheumatoid arthritis ([facility]) * C-REACTIVE PROTEIN(Performed 05/15/2011) Performed for Rheumatoid arthritis ([facility]) * LIPID PROFILE W LDL/HDL RATIO(Performed 05/15/2011) Performed for Hyperlipidemia * ERYTHROCYTE SEDIMENTATION RATE(Performed 05/15/2011) Performed for Rheumatoid arthritis ([facility]) * COMPREHENSIVE METABOLIC PANEL(Performed 05/15/2011) Performed for Rheumatoid arthritis ([facility]) * CBC W AUTO DIFFERENTIAL(Performed 05/15/2011) Performed for Rheumatoid arthritis ([facility]) * ERYTHROCYTE SEDIMENTATION RATE(Performed 04/17/2011) Performed for Rheumatoid arthritis ([facility]) * C-REACTIVE PROTEIN(Performed 04/17/2011) Performed for Rheumatoid arthritis ([facility]) * COMPREHENSIVE METABOLIC PANEL(Performed 04/17/2011) Performed for Rheumatoid arthritis ([facility]) * CBC W AUTO DIFFERENTIAL(Performed 04/17/2011) Performed for Rheumatoid arthritis ([facility]) * ERYTHROCYTE SEDIMENTATION RATE(Performed 03/20/2011) Performed for Rheumatoid arthritis ([facility]) * C-REACTIVE PROTEIN(Performed 03/20/2011) Performed for Rheumatoid arthritis ([facility]) * COMPREHENSIVE METABOLIC PANEL(Performed 03/20/2011) Performed for Rheumatoid arthritis ([facility]) * CBC W AUTO DIFFERENTIAL(Performed 03/20/2011) Performed for Rheumatoid arthritis ([facility]) * CYCLIC CITRUL PEPTIDE ANTIBODY IGG/IGA (CCP)(Performed 02/13/2011) Performed for Rheumatoid arthritis ([facility]) * RHEUMATOID FACTOR BLOOD QUANTITATIVE(Performed 02/13/2011) Performed for Rheumatoid arthritis ([facility]) * ERYTHROCYTE SEDIMENTATION RATE(Performed 02/13/2011) Performed for Rheumatoid arthritis ([facility]) * C-REACTIVE PROTEIN(Performed 02/13/2011) Performed for Rheumatoid arthritis ([facility]) * COMPREHENSIVE METABOLIC PANEL(Performed 02/13/2011) Performed for Rheumatoid arthritis ([facility]) * CBC W AUTO DIFFERENTIAL(Performed 02/13/2011) Performed [...] SEDIMENTATION RATE(Performed 06/27/2010) Performed for Rheumatoid arthritis ([facility]) * CBC W AUTO DIFFERENTIAL(Performed 06/27/2010) Performed for Rheumatoid arthritis ([facility]) * C-REACTIVE PROTEIN(Performed 06/27/2010) Performed for Rheumatoid arthritis ([facility]) * COMPREHENSIVE METABOLIC PANEL(Performed 06/27/2010) Performed for Rheumatoid arthritis ([facility]) * ERYTHROCYTE SEDIMENTATION RATE(Performed 05/26/2010) Performed for Rheumatoid arthritis ([facility]) * C-REACTIVE PROTEIN(Performed 05/26/2010) Performed for Rheumatoid arthritis ([facility]) * COMPREHENSIVE METABOLIC PANEL(Performed 05/26/2010) Performed for Rheumatoid arthritis ([facility]) * CBC W AUTO DIFFERENTIAL(Performed 05/26/2010) Performed for Rheumatoid arthritis ([facility]) * ERYTHROCYTE SEDIMENTATION RATE(Performed 04/18/2010) Performed for Rheumatoid arthritis ([facility]) * C-REACTIVE PROTEIN(Performed 04/18/2010) Performed for Rheumatoid arthritis ([facility]) * COMPREHENSIVE METABOLIC PANEL(Performed 04/18/2010) Performed for Rheumatoid arthritis ([facility]) * CBC W AUTO DIFFERENTIAL(Performed 04/18/2010) Performed for Rheumatoid arthritis ([facility]) * ERYTHROCYTE SEDIMENTATION RATE(Performed 01/10/2010) Performed for Rheumatoid Arthritis ([facility]) * C-REACTIVE PROTEIN(Performed 01/10/2010) Performed for Rheumatoid Arthritis ([facility]) * COMPREHENSIVE METABOLIC PANEL(Performed 01/10/2010) Performed for Rheumatoid Arthritis ([facility]) * CBC W AUTO DIFFERENTIAL(Performed 01/10/2010) Performed for Rheumatoid Arthritis ([facility]) * ERYTHROCYTE SEDIMENTATION RATE(Performed 12/13/2009) Performed for Rheumatoid Arthritis ([facility]) * RHEUMATOID FACTOR BLOOD QUANTITATIVE(Performed 12/13/2009) Performed for Rheumatoid Arthritis ([facility]) * CYCLIC CITRUL PEPTIDE ANTIBODY IGG/IGA (CCP)(Performed 12/13/2009) Performed for Rheumatoid Arthritis ([facility]) * C-REACTIVE PROTEIN(Performed 12/13/2009) Performed for Rheumatoid Arthritis ([facility]) * COMPREHENSIVE METABOLIC PANEL(Performed 12/13/2009) Performed for Rheumatoid Arthritis ([facility]) * CBC W AUTO DIFFERENTIAL(Performed 12/13/2009) Performed for Rheumatoid Arthritis ([facility]) * CBC W AUTO DIFFERENTIAL(Performed 11/08/2009) * ERYTHROCYTE SEDIMENTATION RATE(Performed 11/08/2009) Performed for Rheumatoid Arthritis ([facility]) * CYCLIC CITRUL PEPTIDE ANTIBODY IGG/IGA (CCP)(Performed 11/08/2009) Performed for Rheumatoid Arthritis ([facility]) * C-REACTIVE PROTEIN(Performed 11/08/2009) Performed for Rheumatoid Arthritis ([facility]) * COMPREHENSIVE METABOLIC PANEL(Performed 11/08/2009) Performed for Rheumatoid Arthritis ([facility]) * ERYTHROCYTE SEDIMENTATION RATE(Performed 10/04/2009) Performed for Rheumatoid Arthritis ([facility]) * COMPREHENSIVE METABOLIC PANEL(Performed 10/04/2009) Performed for Rheumatoid Arthritis ([facility]) * C-REACTIVE PROTEIN(Performed 10/04/2009) Performed for Rheumatoid Arthritis ([facility]) * CBC W AUTO DIFFERENTIAL(Performed 10/04/2009) Performed for Rheumatoid Arthritis ([facility]) * ROSA BLOOD SCREEN W/REFLEX TITER(Performed 08/30/2009) * COMPREHENSIVE METABOLIC PANEL(Performed 08/30/2009) * CBC W AUTO DIFFERENTIAL(Performed 08/30/2009) * ERYTHROCYTE SEDIMENTATION RATE(Performed 08/30/2009) Performed for Rheumatoid Arthritis ([facility]) * RHEUMATOID FACTOR BLOOD QUANTITATIVE(Performed 08/30/2009) Performed for Rheumatoid Arthritis ([facility]) * CYCLIC CITRUL PEPTIDE ANTIBODY IGG/IGA (CCP)(Performed 08/30/2009) Performed for Rheumatoid Arthritis ([facility]) * C-REACTIVE PROTEIN(Performed 08/30/2009) Performed for Rheumatoid Arthritis ([facility]) * C-REACTIVE PROTEIN(Performed 08/02/2009) * COMPREHENSIVE METABOLIC PANEL(Performed 08/02/2009) * CBC W AUTO DIFFERENTIAL(Performed 08/02/2009) * ERYTHROCYTE SEDIMENTATION RATE(Performed 08/02/2009) Performed for Rheumatoid Arthritis ([facility]) * ERYTHROCYTE SEDIMENTATION RATE(Performed 07/05/2009) * C-REACTIVE PROTEIN(Performed 07/05/2009) Performed for Rheumatoid Arthritis ([facility]) * COMPREHENSIVE METABOLIC PANEL(Performed 07/05/2009) Performed for Rheumatoid Arthritis ([facility]) * CBC W AUTO DIFFERENTIAL(Performed 07/05/2009) Performed for Rheumatoid Arthritis ([facility]) * C-REACTIVE PROTEIN(Performed 06/07/2009) * ERYTHROCYTE SEDIMENTATION RATE(Performed 06/07/2009) * COMPREHENSIVE METABOLIC PANEL(Performed 06/07/2009) Performed for Rheumatoid Arthritis ([facility]) * CBC W AUTO DIFFERENTIAL(Performed 06/07/2009) Performed for Rheumatoid Arthritis ([facility]) * ERYTHROCYTE SEDIMENTATION RATE(Performed 05/05/2009) Performed for Rheumatoid Arthritis ([facility]) * COMPREHENSIVE METABOLIC PANEL(Performed 05/05/2009) Performed for Rheumatoid Arthritis ([facility]) * C-REACTIVE PROTEIN(Performed 05/05/2009) Performed for Rheumatoid Arthritis ([facility]) * CBC W AUTO DIFFERENTIAL(Performed 05/05/2009) Performed for Rheumatoid Arthritis ([facility]) * RHEUMATOID FACTOR BLOOD QUANTITATIVE(Performed 04/05/2009) Performed for Rheumatoid Arthritis ([facility]) * C-REACTIVE PROTEIN(Performed 04/05/2009) Performed for Rheumatoid Arthritis ([facility]) * COMPREHENSIVE METABOLIC PANEL(Performed 04/05/2009) Performed for Rheumatoid Arthritis ([facility]) * CBC W AUTO DIFFERENTIAL(Performed 04/05/2009) Performed for Rheumatoid Arthritis ([facility]) * COMPREHENSIVE METABOLIC PANEL(Performed 03/08/2009) * CBC W AUTO DIFFERENTIAL(Performed 03/08/2009) * ERYTHROCYTE SEDIMENTATION RATE(Performed 03/08/2009) Performed for Rheumatoid Arthritis ([facility]) * C-REACTIVE PROTEIN(Performed 03/08/2009) Performed for Rheumatoid Arthritis ([facility]) * C-REACTIVE PROTEIN(Performed 02/08/2009) * COMPREHENSIVE METABOLIC PANEL(Performed 02/08/2009) * CBC W AUTO DIFFERENTIAL(Performed 02/08/2009) * ERYTHROCYTE SEDIMENTATION RATE(Performed 02/08/2009) Performed for Rheumatoid Arthritis ([facility]) * COMPREHENSIVE METABOLIC PANEL(Performed 01/11/2009) * ERYTHROCYTE SEDIMENTATION RATE(Performed 01/11/2009) Performed for Rheumatoid Arthritis ([facility]) * C-REACTIVE PROTEIN(Performed 01/11/2009) Performed for Rheumatoid Arthritis ([facility]) * CBC W AUTO DIFFERENTIAL(Performed 01/11/2009) Performed for Rheumatoid Arthritis ([facility]) * ERYTHROCYTE SEDIMENTATION RATE(Performed 12/14/2008) Performed for Rheumatoid Arthritis ([facility]) * C-REACTIVE PROTEIN(Performed 12/14/2008) Performed for Rheumatoid Arthritis ([facility]) * COMPREHENSIVE METABOLIC PANEL(Performed 12/14/2008) Performed for Rheumatoid Arthritis ([facility]) * CBC W AUTO DIFFERENTIAL(Performed 12/14/2008) Performed for Rheumatoid Arthritis ([facility]) * C-REACTIVE PROTEIN(Performed 11/16/2008) * ERYTHROCYTE SEDIMENTATION RATE(Performed 11/16/2008) * COMPREHENSIVE METABOLIC PANEL(Performed 11/16/2008) Performed for Rheumatoid Arthritis ([facility] [facility] * CBC W AUTO DIFFERENTIAL(Performed 11/16/2008) Performed for Rheumatoid Arthritis ([facility]) * RHEUMATOID FACTOR BLOOD QUANTITATIVE(Performed 10/12/2008) * ERYTHROCYTE SEDIMENTATION RATE(Performed 10/12/2008) Performed for Rheumatoid Arthritis ([facility]) * C-REACTIVE PROTEIN(Performed 10/12/2008) Performed for Rheumatoid Arthritis ([facility]) * COMPREHENSIVE METABOLIC PANEL(Performed 10/12/2008) Performed for Rheumatoid Arthritis ([facility]) * IMAGING/RADIOLOGY/XRAY RESULTS ORDER(Performed 08/28/2008) * CYCLIC CITRULLINATED PEPTIDE(CCP) AB IGG(Performed 08/24/2008) * RHEUMATOID FACTOR BLOOD QUANTITATIVE(Performed 08/24/2008) * HEMOGLOBIN A1C(Performed 08/24/2008) Performed for Rheumatoid Arthritis ([facility]) * TSH(Performed 08/24/2008) Performed for Rheumatoid Arthritis ([facility]) * URIC ACID BLOOD(Performed 08/24/2008) Performed for Rheumatoid Arthritis ([facility]) * T4 TOTAL(Performed 08/24/2008) Performed for Rheumatoid Arthritis ([facility]) * ERYTHROCYTE SEDIMENTATION RATE(Performed 08/24/2008) Performed for Rheumatoid Arthritis ([facility]) * C-REACTIVE PROTEIN(Performed 08/24/2008) Performed for Rheumatoid Arthritis ([facility]) * COMPREHENSIVE METABOLIC PANEL(Performed 08/24/2008) Performed for Rheumatoid Arthritis ([facility]) * CBC W AUTO DIFFERENTIAL(Performed 08/24/2008) Performed for Rheumatoid Arthritis ([facility]) * ERYTHROCYTE SEDIMENTATION RATE(Performed 07/27/2008) Performed for Rheumatoid Arthritis ([facility]) * C-REACTIVE PROTEIN(Performed 07/27/2008) Performed for Rheumatoid Arthritis ([facility]) * COMPREHENSIVE METABOLIC PANEL(Performed 07/27/2008) Performed for Rheumatoid Arthritis ([facility]) * CBC W AUTO DIFFERENTIAL(Performed 07/27/2008) Performed for Rheumatoid Arthritis ([facility]) * C-REACTIVE PROTEIN(Performed 06/22/2008) * ERYTHROCYTE SEDIMENTATION [...] 6:08 PM CDT Performed at: ??01 - [place] [id number], [place] ??[phone] Wrap Turner: [facility], Phone: ??[phone] Gloria Smith MD LAB - HEMATOLOGY ORD ERABLES [facility] INSURANCE BILL [address] [place] [address] * (ABNORMAL) COMPREHENSIVE METABOLIC PANEL (01/29/2024 10:37 [...] 6:08 PM CDT Performed at: ?? - [facility] access hospital [address], [place] ??[id number] Wrap Turner: [facility], Phone: ??[phone] Gloria Smith MD LAB - CHEMISTRY MARII ARAUJO Performing Organization Address City/[facility]/ZIP Co de Phone Number [facility] INSURANCE BILL [address] [place] [address] * C-REACTIVE PROTEIN (05/29/2023 2:35 PM RESEARCH WORKER KITCHEN) Only the most recent of58 resultswithin the time period is included. C-Reactive Protein 0.49 <=0.50 mg/dL [facility] INSURANCE BILL Blood BLOOD SPECIMEN / Unknown 05/29/2023 2:35 PM RESEARCH WORKER KITCHEN 05/29/2023 Narrative Resulting Agency Comment Lab Testing performed at: [place] [address] ?? [facility] [phone] Gloria Smith MD LAB - CHEMISTRY MARII ARAUJO Performing Organization Address [facility] Co de Phone Number [facility] INSURANCE BILL [address] [place] [address] * (ABNORMAL) ERYTHROCYTE SEDIMENTATION RATE (05/29/2023 2:35 PM RESEARCH WORKER KITCHEN) Only the most recent of87 resultswithin the time period is included. Pathologist [facility] Erythrocyte Sedimentation Rate Westergren 23(H) 0 - 20 MM/HR [facility] INSURANCE BILL Blood BLOOD SPECIMEN / Unknown 05/29/2023 2:35 PM RESEARCH WORKER KITCHEN 05/29/2023 Narrative Resulting Agency Comment Lab Testing performed at: [place] [id number] ?? [place] [phone] Gloria Smith MD LAB - HEMATOLOGY ORD ERABLES Performing Organization Address City/[facility]/ZIP Co de Phone Number [facility] INSURANCE BILL [address] [place] [address] * HEPATITIS SCREEN ACUTE ([facility]) (02/10/2022 9:46 [...] Lab Testing performed at: Critical access hospital [address] ?? [place] [phone] Gloria Smith MD LAB - CHEMISTRY MARII ARAUJO Performing Organization Address City/[facility] Co de Phone Number [facility] INSURANCE BILL [address] [place] [address] * VITAMIN D 25-HYDROXY (02/10/2022 9:46 AM CDT) [facility] [address] [facility] Vitamin D, 25 Hydroxy 52.1 30 - 100 ng/mL [facility] INSURANCE BILL Comment: Vitamin D Status: ?Deficiency ? <20 ? ng/mL ?Insufficiency ?? 20-30 ??ng/mL ?Sufficiency ? 30-100 ng/mL ?Toxicity ? >100 ?ng/mL Blood BLOOD SPECIMEN / Unknown 02/10/2022 9:46 AM CDT 02/10/2022 Narrative Resulting Agency Comment Lab Testing performed at: Critical access hospital [address] ?? [place] [phone] Gloria Smith MD LAB - CHEMISTRY MARII ARAUJO [facility] INSURANCE BILL [address] [place] [address] * QUANTIFERON TB-GOLD (02/10/2022 9:44 AM CDT) Only the most recent of3 resultswithin the time period is included. [facility] [address] QuantiFERON Incubation Incubation performed. [facility] INSURANCE BILL [...] Resulting Agency Comment Lab Testing performed at: [facility] [address] [facility] ??[facility] [phone] Gloria Smith MD LAB - CHEMISTRY MARII ARAUJO [facility] INSURANCE BILL [address] [place] [address] * LAB RESULTS ORDER (12/28/2021) Only the most recent of2 resultswithin the time period is included. 12/28/2021 Narrative 12/28/2021 Ordered by an unspecified provider. Scanned Document LAB - THERAPEUTIC DR BUSH MONITORING ORDERABLES * REF LAB-ABN TEST REFUSAL (02/08/2021 4:45 PM CDT) [facility] [address] Advance Beneficiary Notice Option 3 [facility] INSURANCE BILL Comment: One or more tests [...] Resulting Agency Comment Lab Testing performed at: [employer] [place], [place] [address]ox [facility] ??[facility] [phone] Gloria Smith MD LAB - CHEMISTRY ORDAvelino DigiumDO Performing Organization Address City/[facility]/ZIP Co de Phone Number [facility] INSURANCE BILL [address] [place] [address] * (ABNORMAL) VITAMIN B12 (02/08/2021 4:45 PM CDT) [facility] [address] Vitamin B12 1,257(H) 232 - 1,245 pg/mL [facility] BILL Blood BLOOD SPECIMEN / Unknown 02/08/2021 4:45 PM CDT 02/08/2021 Narrative Resulting Agency Comment Lab Testing performed at: [address] [place], [place] [address] [facility] ??[facility] [phone] Gloria Smith MD LAB - CHEMISTRY ORDadmetricksDO Performing Organization Address City/[facility]/ZIP Co de Phone Number [facility] INSURANCE BILL [address] [place] [address] * THIOPURINE METHYLTRANSFERASE (07/27/2020 3:14 PM CDT) [facility] [address] TPMT Activity 23.1 Units/mL RBC [facility] INSURANCE BILL Comment: Reference Range: Normal: 15.1 - 26.4 Heterozygous for low TPMT variant: 6.3 - 15.0 Homozygous for low TPMT variant: <6.3 Interpretation [facility] INSURANCE BILL Comment: The above results can be interpreted as Normal for red blood cell Thiopurine Methyltransferase activity. For patients having an intrinsic low level of TPMT, recent RBC transfusion can variably increase their assayed enzymatic activity depending on the amount and circulating half-life of the transfused red blood cells. This test was developed and its performance characteristics determined by [email or web address]. It has not been cleared or approved by the Food and Drug Administration. This case has been reviewed, approved, interpreted and electronically signed by Go Saenz, PhD, [facility]. Methodology [facility] INSURANCE BILL Comment: Enzymatic Endpoint/Liquid Chromatography - Tandem Mass Spectrometry (LC-MS/MS) Blood BLOOD SPECIMEN / Unknown 07/27/2020 3:14 PM CDT 07/27/2020 Narrative Resulting Agency Comment Lab Testing performed at: [employer] [address] [place] [address] ??[facility] [phone] Gloria Smith MD LAB - CHEMISTRY MARII [facility] Organization Address City/State/ZIP Co de Phone Number [facility] INSURANCE BILL [address] [place] [address] * XR HAND RIGHT 3VW OR MORE (05/10/2020 10:37 AM RESEARCH WORKER KITCHEN) Anatomical Region Laterality Modality Wrist / Hand Computed Radiogr aphy Narrative 05/10/2020 10:38 AM RESEARCH WORKER KITCHEN Mora Delgado, RT(R) ? 05/10/2020 11:39 AM [...] B27 (02/06/2020 1:32 PM CDT) HLA-B27 Negative [facility] INSURANCE BILL Comment: HLA-B*27 Negative B27 allele interpretation for all loci based on IMGT/HLA database version 3.38 This test was developed and its performance characteristics determined by [facility]. ??It has not been cleared or approved by the Food and Drug Administration. HLA Lab CLIA ID Number [id number] ? . This test was performed using PCR (Polymerase Chain Reaction)/SSOP (Sequence Specific Oligonucleotide Probes) technique. ??SBT (Sequence Based Typing) and/or SSP (Sequence Specific Primers) may be used as supplemental methods when necessary. ??Please contact [facility] Customer Service at if you have any questions. ? . Director of HLA Laboratory Dr Frankie Salinas, PhD Blood BLOOD SPECIMEN / Unknown 02/06/2020 1:32 PM CDT 02/06/2020 Narrative Resulting Agency Comment Lab Testing performed at: [place] [id number] [facility] ??[facility] [phone] Gloria Smith MD LAB - CHEMISTRY MARII ARAUJO [facility] INSURANCE BILL [address] [place] [address] * BASIC METABOLIC PANEL (CALCIUM TOTAL) (09/26/2019 [...] Agency Comment Lab Testing performed at: [address] ?? [facility] [phone] Gloria Smith MD LAB - CHEMISTRY [facility] INSURANCE BILL [address] [place] [address] * DEXA BONE DENSITY 2 SITES (07/09/2019) Anatomical Region Laterality Modality Other 07/09/2019 Narrative 07/09/2019 Ordered by an unspecified provider. Scanned Document DEXA ORDERABLES * XR CERVICAL SPINE 2 OR 3VW (04/18/2019 1:48 PM RESEARCH WORKER KITCHEN) Only the most recent of2 resultswithin the time period is included. Anatomical Region Laterality Modality Spine Radiographic Reena ging 04/18/2019 1:56 PM RESEARCH WORKER KITCHEN Impressions 04/18/2019 1:59 PM RESEARCH WORKER KITCHEN There is moderate disc space narrowing at C5-6 and C6-7 with osteophytosis at C5-6. This could be further evaluated by MRI if indicated. Reading Radiologist: Cristina Avalos MD on 04/18/2019 at 1:59 PM Narrative 04/18/2019 1:59 PM RESEARCH WORKER KITCHEN Cervical spine AP and lateral INDICATION: Neck [...] buPROPion (WELLBUTRIN) 100 MG tablet ? ? capmgvlxvnq-brgf-xxbdnaza, PF, (REFRESH OPTIVE ADVANCED PF) 0.5-1-0.5 % SOLN ? ? carvedilol (COREG) 12.5 MG tablet ? ? ferrous sulfate 325 (65 FE) MG tablet ? ? gabapentin (NEURONTIN) 300 MG capsule ? ? Clfstxtntfe-Wpbgzgmis-Sgm C-Mn (GLUCOSAMINE CHONDR 1500 COMPLX PO) ? [...] identified, and marked by Dr. Mirza. ??Responsible line haul driver is not needed due to the [...] Agency Comment [facility] [place] [address] ??[facility] [phone] Isidro Heredia MD LAB - CHEMISTRY ORD ERABLES [facility] INSURANCE BILL [address] [place] [address] * VASCULAR LAB ORDER (05/02/2017) Anatomical Region Laterality Modality Other Isidro Heredia MD VASCULAR LAB ORDERA BLES * XR ANKLE BILAT 2 VIEWS (03/08/2017 4:07 PM RESEARCH WORKER KITCHEN) Anatomical Region Laterality Modality Ankle / Foot, Lower Extremity Ra diographic Imaging 03/08/2017 4:14 PM RESEARCH WORKER KITCHEN Impressions 03/08/2017 4:15 PM RESEARCH WORKER KITCHEN No fracture. Narrative 03/08/2017 4:15 PM RESEARCH WORKER KITCHEN Bilateral ankles 2 views INDICATION: Ankle pain [...] included. Anatomical Region Laterality Modality Other Isidro Heredai MD IMAGING * CARDIAC ECHOCARDIOGRAM COMPLETE ORDER [...] CDT 08/24/2016 Narrative Resulting Agency Comment [facility] [address] ??[facility] [phone] Isidro Heredia MD LAB - CHEMISTRY ORD ERABLES Performing Organization Address City/State/[facility] Co de Phone Number [facility] INSURANCE BILL [address] [place] [address] * PO REF LAB-SPECIMEN STATUS REPORT (02/23/2016 1:30 AM CDT) Specimen Status Report NOT NEEDED [facility] INSURANCE BILL Comment: Test could not be performed due to degeneration of specimen. ?TEST: ??[id number] ??Sedimentation Rate-Westergren Ancillary determined the test is not needed 02/23/2016 1:30 AM CDT 02/23/2016 6:29 PM CDT Narrative Resulting Agency Comment [facility] [address] [facility] ??[facility] [phone] Isidro Heredia MD LAB - CHEMISTRY Visual[employer] Performing Organization Address [facility] Co de Phone Number [facility] INSURANCE BILL [address] [place] [address] * TSH (10/13/2015 3:30 PM CDT) Only the most recent of2 resultswithin the time period is included. TSH 1.06 0.358 - 3.740 uIU/mL [facility] INSURANCE BILL Blood specimen (specimen) BLOOD SPECIMEN / Unknown 10/13/2015 3:30 PM CDT 10/13/2015 6:21 PM CDT Narrative Resulting Agency Comment [facility] [address] ??[facility] [phone] Isidro Heredia MD LAB - CHEMISTRY ORD youmagBLES Performing Organization Address City/[facility]/ZIP Co de Phone Number [facility] INSURANCE BILL [address] [place] [address] * T4 TOTAL (10/13/2015 3:30 PM CDT) Only the most recent of2 resultswithin the time period is included. T4 Total 4.9 4.7 - 13.3 ug/dL [facility] INSURANCE BILL Blood specimen (specimen) BLOOD SPECIMEN / Unknown 10/13/2015 3:30 PM CDT 10/13/2015 6:21 PM CDT Narrative Resulting Agency Comment [facility] [address] [facility] ??[place] [phone] Isidro Heredia MD LAB - CHEMISTRY CALEB FIELDS [facility] INSURANCE BILL [address] [place] [address] * CYCLIC CITRUL PEPTIDE ANTIBODY IGG/IGA (CCP) [...] CDT Narrative Resulting Agency Comment [facility] [address] ??[facility] [phone] Isidro Heredia MD LAB - SEROLOGY MARII ARAUJO [facility] INSURANCE BILL * RHEUMATOID FACTOR BLOOD QUANTITATIVE (08/12/2014 2:08 PM CDT) Only the most recent of9 resultswithin the time period is included. Rheumatoid Factor 10.2 0.0 - 13.9 IU/mL [facility] INSURANCE BILL Blood specimen (specimen) BLOOD SPECIMEN / Unknown 08/12/2014 2:08 PM CDT 08/12/2014 6:39 PM CDT Narrative Resulting Agency Comment [facility] [address] [facility] ??[facility] [phone] Isidro Heredia MD LAB - CHEMISTRY ORD ERABLES [facility] INSURANCE BILL * KAMI STAINING PATTERNS REFLEXED (PO REF LAB) (08/12/2014 2:03 PM CDT) Only the most recent of2 resultswithin the time period is included. Pathologist [facility] Homogeneous Pattern 1:80 [facility] INSURANCE BILL Nucleolar [...] (Smooth) ? Histone ? Speckled ? Sm, CADMIUM LIQUOR MAKER, SCL-70, ??SLE,MCTD,Scleroderma,Sjogrens ? SS-A/SS-B ? Nucleolar ?SCL-70, PM-1/SCL ??High titers Scleroderma Poly- ? myositis/Scleroderma Overlap ? Centromere ?? Centromere ?PSS w/Crest syndrome variable ?? 08/12/2014 2:03 PM CDT 08/12/2014 6:39 PM CDT Narrative Resulting Agency Comment [address] ??[facility] [phone] Isidro Heredia MD LAB - PATHOLOGY/CYT OLOGY [...] Narrative Resulting Agency Comment [facility] [address] [facility] ??[facility] [phone] Isidro Heredia MD LAB - CHEMISTRY ORD [...] ABDOMEN PELVIS W CONT (03/25/2013 8:59 AM RESEARCH WORKER KITCHEN) Anatomical Region Laterality Modality Chest, Abdomen, Pelvis Computed Tomography 03/25/2013 11:5 3 AM RESEARCH WORKER KITCHEN Narrative 03/25/2013 11:57 AM RESEARCH WORKER KITCHEN Examination: CT chest with contrast. Indication for [...] - POINT OF CARE (03/24/2013 9:16 AM RESEARCH WORKER KITCHEN) Clarity UA POCT Comment:creatine 100 mg/dl Color UA POCT yellow Leukocyte UA negative Negative Nitrite UA POCT negative Negative Urobilinogen UA POCT 0.1 - 1.0 EU/dL Protein UA POCT negative Negative pH UA 6.0 5.0 - 8.0 pH units Blood UA negative Negtive Specific [place] UA POCT 1.015 1.002 - 1.030 Ketone [...] CDT Narrative Resulting Agency Comment [facility] [address] ??[facility] [phone] Isidro Heredia MD LAB - CHEMISTRY ORD ERABLES [facility] ACCOUNT BILL * (ABNORMAL) LIPID PROFILE W LDL/HDL (PO REF LAB) (05/15/2011 6:06 PM RESEARCH WORKER KITCHEN) Cholesterol 191 100 - 199 mg/dL [facility] [...] BLOOD SPECIMEN / Unknown 05/15/2011 6:06 PM RESEARCH WORKER KITCHEN 05/15/2011 9:47 PM RESEARCH WORKER KITCHEN Narrative Resulting Agency Comment [facility] [place] [id number] [facility] ??[facility] [phone] Isidro eHredia MD LAB - CHEMISTRY ORD ERABLES [facility] ACCOUNT BILL * URIC ACID BLOOD (08/24/2008 6:37 PM CDT) Uric Acid 5.1 2.4 - 8.2 mg/dL [facility] INSURANCE BILL BLOOD SPECIMEN / Unknown 08/24/2008 6:37 PM CDT 08/24/2008 9:56 PM CDT Narrative Resulting Agency Comment [facility] [place] [address] ??[place] [phone] Isidro Heredia MD LAB - CHEMISTRY VisualCV [facility] INSURANCE BILL * HEMOGLOBIN A1C (08/24/2008 6:37 PM CDT) Hemoglobin A1c 5.6 <7.0 % [facility] INSURANCE BILL Comment: ?Diabetic Adult ?<7.0 ?Healthy Adult ?4.8 - 5.9 ?(DCCT/NGSP) ?[place] [employer] Association's Summary of Glycemic ?Recommendations for Adults with Diabetes: ?Hemoglobin A1c <7.0%. More stringent glycemic goals ?(A1c <6.0%) may further reduce complications at the ?cost of increased risk of hypoglycemia. BLOOD SPECIMEN / Unknown 08/24/2008 6:37 PM CDT 08/24/2008 9:56 PM CDT Narrative Resulting Agency Comment [facility] [place] [address] ??[place] [phone] Isidro Heredia MD LAB - CHEMISTRY CALEB youmagMEGAN [facility] INSURANCE BILL * CYCLIC CITRUL PEPTIDE ANTIBODY IGG (CCP) (08/24/2008 6:37 PM CDT) CCP Antibody IgG 1 0 - 5 U/mL [facility] INSURANCE BILL Comment: ?Negative: ??0 - 5 ?Positive: ? >5 08/24/2008 6:37 PM CDT 08/24/2008 9:56 PM CDT Narrative Resulting Agency Comment [facility] [address] ??[facility] [phone] Isidro Heredia MD LAB - CHEMISTRY ORD ERABLES [facility] INSURANCE BILL Care Teams Physician Intensivist Relationship Specialty Start Date End Date Tomas Hyman MD [address] [facility] [address] [place] [address] PCP - General Family Medicine 09/05/18 Isidro Heredia MD Rheumatology 02/09/11
--- OUTSIDE RECORDS SUMMARY | 2024-05-10 10:16 | XMS_ITS | Encounter Summary ---
Author Organization [facility] Address [address] [facility] [place] [address] Care Team Providers Care Seat Coverer Name Role Phone Isidro Heredia MD Unavailable [phone] Tomas Hyman MD Primary Care Provider [phone] Encounter Details Date Type Department Care Team (Late Contact Info) Description 11/09/2023 Orders Only [facility] - Rheumatology [address] [place] [address] Gloria Smith MD [address] [place] [phone] Rheumatoid arthritis of multiple sites with [...] Contact Info) Description 06/03/2024 1:00 PM INDEPENDENT TRADER Appointment [facility] - Rheumatology [address] [place] [address] 06/03/2024 2:00 PM INDEPENDENT TRADER Office Visit [facility] - Rheumatology [address] [place] [address] [place] [address] Gloria Smith MD [address] [place] [address] documented as of this encounter Visit Diagnoses Diagnosis Rheumatoid arthritis of 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
--- OUTSIDE RECORDS SUMMARY | 2024-05-10 10:16 | XMS_ITS | Encounter Summary ---
Author Organization [facility] Address [address] [facility] [address] [place] [address] [place] [address] Care Team Providers Care Md Physician Dermatologist Name Role Phone Isidro Heredia MD Unavailable [phone] Tomas Hyman MD Primary Care Provider [phone] Encounter Details Date Type Department Care Team (Late Contact Info) Description 09/14/2023 Orders Only [facility] - Rheumatology [address] [place] [address] Gloria Smith MD [address] [place] [phone] Rheumatoid arthritis of multiple sites with [...] (Late Contact Info) Description 06/03/2024 1:00 PM CUPOLA TAPPER Appointment [facility] - Rheumatology [address] [place] [address] 06/03/2024 2:00 PM CUPOLA TAPPER Office Visit [facility] - Rheumatology [address] [place] [phone] Gloria Smith MD [address] [place] [address] documented as of this encounter [...] Agency Comment Lab Testing performed at: [facility] [address] [facility] ??Critical access hospital [phone] Gloria Smith MD LAB - CHEMISTRY MARII ARAUJO [facility] INSURANCE BILL [address] [place] [address] * (ABNORMAL) CBC WITH DIFFERENTIAL (09/17/2023 2:54 [...] Agency Comment Lab Testing performed at: [facility] [address] [facility] ??Critical access hospital [phone] Gloria Smith MD LAB - HEMATOLOGY ORD ERABLES [facility] INSURANCE BILL [address] [place] [address] documented in this encounter Visit Diagnoses Diagnosis Rheumatoid arthritis of multiple sites with negative rheumatoid factor (HCC) documented in this encounter Care Teams Md Physician Dermatologist Relationship Specialty Start Date End Date Tomas Hyman MD [address] [facility] [address] [place] [address] PCP - General Family Medicine 09/05/18 Isidro Heredia MD Rheumatology 02/09/11 documented as of this encounter
--- OUTSIDE RECORDS SUMMARY | 2024-05-10 10:16 | XMS_ITS | Encounter Summary ---
Author Organization [facility] Address [address] [facility] [place] [address] Care Team Providers Care Separator Operator Shellfish Meats Name Role Phone Isidro Heredia MD Unavailable [phone] Tomas Hyman MD Primary Care Provider [phone] Encounter Details Date Type Department Care Team (Late Contact Info) Description 11/18/2022 Orders Only [facility] - Rheumatology [address] [facility], [address] [place] [phone] Gloria Smith MD [address] [place] [address] Social History Tobacco Use Types Packs/Day [...] Contact Info) Description 06/03/2024 1:00 PM LEGAL ASSOCIATE Appointment [facility] - Rheumatology [address] [place] [address] 06/03/2024 2:00 PM LEGAL ASSOCIATE Office Visit [facility] - Rheumatology [address] [place] [address] Gloria Smith MD [address] [place] [address] documented as of this encounter Visit Diagnoses Not on filedocumented in this encounter Care Teams Separator Operator Shellfish Meats Relationship Specialty Start Date End Date Tomas Hyman MD [address] [place] [address] PCP - General Family Medicine 09/05/18 Isidro Heredia MD Rheumatology 02/09/11 documented as of this encounter
--- OUTSIDE RECORDS SUMMARY | 2024-05-10 10:16 | XMS_ITS | Encounter Summary ---
Author Organization [facility] Address [address] [facility] [place] [address] Care Team Providers Care Business Broker Name Role Phone Isidro Heredia MD Unavailable [phone] Tomas Hyman MD Primary Care Provider [phone] Encounter Details Date Type Department Care Team (Late Contact Info) Description 12/10/2023 Orders Only [facility] - Rheumatology [address] [place] [address] Gloria Smith MD [address] [place] [phone] Rheumatoid arthritis of multiple sites with [...] (Late Contact Info) Description 06/03/2024 1:00 PM MAINTENANCE JOB TITLES Appointment [facility] - Rheumatology [address] [place] [address] 06/03/2024 2:00 PM MAINTENANCE JOB TITLES Office Visit [facility] - Rheumatology [address] [place] [address] [place] [address] Gloria Smith MD [address] [place] [address] documented as of this encounter Visit Diagnoses Diagnosis Rheumatoid arthritis of multiple sites with negative rheumatoid factor (HCC) documented in this encounter Care Teams Business Broker Relationship Specialty Start Date End Date Tomas Hyman MD [address] [facility] [address] [place] [address] PCP - General Family Medicine 09/05/18 Isidro Heredia MD Rheumatology 02/09/11 documented as of this encounter
--- OUTSIDE RECORDS SUMMARY | 2024-05-10 10:16 | XMS_ITS | Encounter Summary ---
Author Organization [facility] Address [address] [facility] [place] [address] Care Team Providers Care Physical Therapist Technician Name Role Phone Isidro Heredia MD Unavailable [phone] Tomas Hyman MD Primary Care Provider [phone] Reason for Visit * Treatment (Elective) - Closed Specialty Diagnoses / Procedures Referred By Lawrence shah Referred To Contact Diagnoses Rheumatoid arthritis without rheumatoid factor, multiple sites (HCC) Procedures [place] GOLIMUMAB FOR IV USE 1MG Gloria Smith MD [address] [place] [address] [address] Referral ID Status Reason Start Date Expiration Date Visits Re quested Visits Authorized [id number] Closed 05/18/2023 04/29/2024 8 8 Encounter Details Date Type Department Care Team (Late st Contact Info) Description 04/04/2024 9:45 AM THORACIC SURGEON - 04/04/2024 11:59 PM THORACIC SURGEON Hospital Encounter [facility] Medical [facility] - Rheumatology [address] [place] [address] Gloria Smith MD [address] [place] [address] Rheumatology Discharge Disposition: Home or [...] Comments Blood Pressure 144/83 04/04/2024 10:23 AM THORACIC SURGEON Pulse 82 04/04/2024 10:23 AM THORACIC SURGEON Temperature 36.8 ??C (98.2 ??F) 04/04/2024 1 0:23 AM THORACIC SURGEON Respiratory Rate - - Oxygen Saturation - - Inhaled Oxygen Concentration - - Weight 106.4 kg (234 lb 9.6 oz) 024 10:23 AM THORACIC SURGEON Height - - Body Mass Index 33.66 02/08/2024 11:48 AM CDT documented in this encounter Discharge Instructions * Discharge Instructions* Shelby Higgins RN - 04/04/2024 10:29 AM THORACIC SURGEON Discharge Instructions [facility] Rheumatology You have received your infusion [...] through Sunday 9-5 call the office at [phone]. After hours or on the weekend call the exchange at [phone]. If you have had lab work done [...] have chosen Enedina Padilla as your Provider ACIC SURGEON documented in this encounter Medications at Time of Discharge Medication Sig Dispensed Refills Start Date End Date aspirin EC (ECOTRIN) 81 MG tablet Take 1 (one) tablet by mouth once daily 90 tablet 11/14/2021 atorvastatin (LIPITOR) 40 MG tablet Take 1 (one) tablet by mouth at bedtime buPROPion (Wellbutrin) 100 MG tablet Take 1 (one) tablet by mouth 2 times daily 09/04/2022 yksjanncumr-oasz-yhv ysorb, PF, 0.5-1-0.5 % SOLN Instill 1 [...] - 04/04/2024 10:29 AM CST JOSE Deng [id number] 04/04/2024 Diagnosis: Rheumatoid arthritis without rheumatoid factor, [...] treatment? Q 8 weeks Shelby Higgins RN ACIC SURGEON documented in this encounter Plan of Treatment Upcoming Encounters Date Type Department Care Team (Late st Contact Info) Description 06/03/2024 1:00 PM THORACIC SURGEON Appointment [facility] - Rheumatology [address] [place] [address] [phone] 06/03/2024 2:00 PM THORACIC SURGEON Office Visit [facility] - Rheumatology [address] [place] [address] [phone] Gloria Smith MD [address] [place] [phone] documented as of this encounter Visit Diagnoses [...] filter. $ New Bag/Syringe 04/04/2024 10:34 AM THORACIC SURGEON 212.5 mg 200 mL/hr documented in this encounter Care Teams Physical Therapist Technician Relationship Specialty Start Date End Date Tomas Hyman MD [address] [place] [address] PCP - General Family Medicine 09/05/18 Isidro Heredia MD Rheumatology 02/09/11 documented as of this encounter
--- OUTSIDE RECORDS SUMMARY | 2024-05-10 10:16 | XMS_ITS | Encounter Summary ---
Author Organization [facility] Address [address] [place] [address] Care Team Providers Care Child Care Assistant Name Role Phone Isidro Heredia MD Unavailable [phone] Tomas Hyman MD Primary Care Provider Reason for Visit * Reason Onset Date Comments MEDICATION REFILL 03/23/2023 Encounter Details Date Type Department Care Team (Late st Contact Info) Description 03/23/2023 Refill [facility] Medical [facility] - Rheumatology [address] [place] [address] Gloria Smith MD [address] [place] [phone] MEDICATION REFILL Social History Tobacco Use [...] Last Eye exam (if refill for hydroxychloroquine): UCTION CONTROL COORDINATING CLERK documented in this encounter Plan of Treatment Upcoming Encounters Date Type Department Care Team (Late st Contact Info) Description 06/03/2024 1:00 PM PRODUCTION CONTROL COORDINATING CLERK Appointment [facility] - Rheumatology [address] [place] [address] 06/03/2024 2:00 PM PRODUCTION CONTROL COORDINATING CLERK Office Visit [facility] - Rheumatology [address] [place] [address] Gloria Smith MD [address] [place] [phone] documented as of this encounter Visit Diagnoses Diagnosis Chronic neck pain Cervicalgia Chronic back pain, unspecified back location, unspecified back pain laterality Rheumatoid arthritis 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 [address] [place] [address] PCP - General Family Medicine 09/05/18 Isidro Heredia MD Rheumatology 02/09/11 documented as of this encounter
--- OUTSIDE RECORDS SUMMARY | 2024-05-10 10:16 | XMS_ITS | Encounter Summary ---
Author Organization [facility] Address [address] [facility] [place] [address] Care Team Providers Care Tourist Guide Name Role Phone Isidro Heredia MD Unavailable [phone] Tomas Hyman MD Primary Care Provider Reason for Visit * Treatment (Elective) - Closed Specialty Diagnoses / Procedures Referred By Lawrence shah Referred To Contact Diagnoses Rheumatoid arthritis of multiple sites with negative rheumatoid factor (HCC) Procedures [place] GOLIMUMAB FOR IV USE 1MG Gloria Smith MD [address] [place] [address] [address] Referral ID Status Reason Start Date Expiration Date Visits Re quested Visits Authorized [id number] Closed 05/22/2022 04/29/2023 12 12 Encounter Details Date Type Department Care Team (Late st Contact Info) Description 01/30/2023 9:31 AM CDT - 01/30/2023 11:59 PM CDT Hospital Encounter [facility] Medical [facility] - Rheumatology [address] [place] [address] Gloria Smith MD [address] [place] [address] Rheumatology Discharge Disposition: Home or [...] Body Mass Index 29.13 07/05/2022 10:45 AM BIOMASS PLANT MANAGER documented in this encounter Discharge Instructions * Discharge Instructions* Shelby Higgins RN - 01/30/2023 10:17 AM CDT Discharge Instructions [facility] Rheumatology You have received your [...] Sunday through 01-02 call the office at [phone]. After hours or on the weekend call [...] tablet by mouth 2 times daily 09/04/2022 jrcsfualwif-bfut-jaqd sorb, PF, 0.5-1-0.5 % SOLN Instill 1 [...] - 01/30/2023 10:19 AM CDT JOSE Deng [id number] 01/30/2023 Diagnosis: Rheumatoid arthritis without rheumatoid factor, [...] st Contact Info) Description 06/03/2024 1:00 PM BIOMASS PLANT MANAGER Appointment [facility] - Rheumatology [address] [place] [address] [phone] 06/03/2024 2:00 PM BIOMASS PLANT MANAGER Office Visit [facility] - Rheumatology [address] [place] [address] Gloria Smith MD [address] [place] [phone] documented as of this encounter Visit Diagnoses [...] mL/hr documented in this encounter Care Teams Tourist Guide Relationship Specialty Start Date End Date Tomas Hyman MD [address] [place] [address] [address] [address] [place] [address] PCP - General Family Medicine 09/05/18 Isidro Heredia MD Rheumatology 02/09/11 documented as of this encounter
--- OUTSIDE RECORDS SUMMARY | 2024-05-10 10:16 | XMS_ITS | Encounter Summary ---
Author Organization [facility] Address [address] [facility] [place] [address] Care Team Providers Care Theatrical Scenic Designer Name Role Phone Isidro Heredia MD Unavailable [phone] Tomas Hyman MD Primary Care Provider [phone] Reason for Visit * Reason Onset Date Comments MEDICATION REFILL 02/16/2024 Encounter Details Date Type Department Care Team (Late st Contact Info) Description 02/16/2024 Refill [facility] Medical [facility] - Rheumatology [address] [place] [address] Gloria Smith MD [address] [place] [phone] MEDICATION REFILL Social History Tobacco Use [...] st Contact Info) Description 06/03/2024 1:00 PM STONEWORKING BELT SANDER Appointment [facility] - Rheumatology [address] [place] [address] [phone] 06/03/2024 2:00 PM STONEWORKING BELT SANDER Office Visit [facility] - Rheumatology [address] [place] [address] [phone] Gloria Smith MD [address] [place] [phone] documented as of this encounter Visit Diagnoses Diagnosis High risk medication use Encounter for long-term (current) use of other medications Chronic neck pain Cervicalgia Chronic back pain, unspecified back location, unspecified back pain laterality Rheumatoid arthritis of multiple sites with negative rheumatoid factor (HCC) Neuropathy Mononeuritis of unspecified site documented in this encounter Care Teams Theatrical Scenic Designer Relationship Specialty Start Date End Date Tomas Hyman MD [address] [facility] [address] [place] [phone] PCP - General Family Medicine 09/05/18 Isidro Heredia MD Rheumatology 02/09/11 documented as of this encounter
--- OUTSIDE RECORDS SUMMARY | 2024-05-10 10:16 | XMS_ITS | Encounter Summary ---
Author Organization [facility] Address [address] [facility] [place] [address] Care Team Providers Care Sole Conforming Machine Operator Name Role Phone Isidro Heredia MD Unavailable [phone] Tomas Hyman MD Primary Care Provider [phone] Reason for Visit * Reason Comments Rheumatoid Arthritis Follow-up Encounter Details Date Type Department Care Team (Late st Contact Info) Description 01/30/2023 10:40 AM CDT Office Visit [facility] - Rheumatology [address] [place] [address] Gloria Smith MD [address] [place] [phone] Rheumatoid arthritis of multiple sites with [...] History: Diagnosis Date ??? RA (rheumatoid arthritis) ([facility]) Past Surgical History: Procedure Laterality Date ??? [...] results to us. - took alendronate from [id number]. documented in this encounter Plan of Treatment Upcoming Encounters Date Type Department Care Team (Late st Contact Info) Description 06/03/2024 1:00 PM IMAGING ADMINISTRATOR Appointment [facility] - Rheumatology [address] [place] [address] 06/03/2024 2:00 PM IMAGING ADMINISTRATOR Office Visit [facility] - Rheumatology [address] [place] [address] Gloria Smith MD [address] [place] [phone] documented as of this encounter Procedures [...] Resulting Agency Comment Lab Testing performed at: [place] [address] [address] ?? [facility] [id number] Gloria Smith MD LAB - CHEMISTRY ORDE VAN [facility] INSURANCE BILL [address] [place] [address] * (ABNORMAL) CBC WITH DIFFERENTIAL (01/30/2023 11:58 [...] x10E9/L [facility] INSURANCE BILL Comment:MPV FL BLOOD ([facility]) 1 1.5 fl 9.4-12.9 Granulocytes % [...] Resulting Agency Comment Lab Testing performed at: [address] ?? [facility] [id number] Gloria Smith MD LAB - HEMATOLOGY ORD ERABLES [facility] INSURANCE BILL [address] [place] [address] documented in this encounter Visit Diagnoses Diagnosis Rheumatoid arthritis of multiple sites with negative rheumatoid factor (HCC)- Primary documented in this encounter Care Teams Sole Conforming Machine Operator Relationship Specialty Start Date End Date Tomas Hyman MD [address] [place] [address] PCP - General Family Medicine 09/05/18 Isidro Heredia MD Rheumatology 02/09/11 documented as of this encounter
--- OUTSIDE RECORDS SUMMARY | 2024-05-10 10:16 | XMS_ITS | Encounter Summary ---
Author Organization [facility] Address [address] [facility] [place] [address] Care Team Providers Care Leather Belt Loop Cutter Name Role Phone Isidro Heredia MD Unavailable [phone] Tomas Hyman MD Primary Care Provider [phone] Reason for Visit * Treatment (Elective) - Closed Specialty Diagnoses / Procedures Referred By Lawrence shah Referred To Contact Diagnoses Rheumatoid arthritis without rheumatoid factor, multiple sites (HCC) Procedures [place] GOLIMUMAB FOR IV USE 1MG Gloria Smith MD [address] [place] [address] [address] Referral ID Status Reason Start Date Expiration Date Visits Re quested Visits Authorized [id number] Closed 05/18/2023 04/29/2024 8 8 Encounter Details Date Type Department Care Team (Late st Contact Info) Description 07/30/2023 1:51 PM CDT - 07/30/2023 11:59 PM CDT Hospital Encounter [facility] Medical [facility] - Rheumatology [address] [place] [address] Gloria Smith MD [address] [place] [address] Discharge Disposition: Home or Self [...] - 07/30/2023 2:21 PM CDT Discharge Instructions [facility] Rheumatology You have received your [...] Sunday through Sunday-5 call the office at [phone]. After hours or on the weekend call [...] tablet by mouth 2 times daily 09/04/2022 aaklqwqdvvz-elgx-zjaa sorb, PF, 0.5-1-0.5 % SOLN Instill 1 [...] 07/30/2023 2:31 PM CDT JOSE Chalino Deng [id number] 07/30/2023 Diagnosis: Rheumatoid arthritis without rheumatoid factor, [...] st Contact Info) Description 06/03/2024 1:00 PM FLEXIBLE NANNY Appointment [facility] - Rheumatology [address] [place] [address] [phone] 06/03/2024 2:00 PM FLEXIBLE NANNY Office Visit [facility] - Rheumatology [address] [place] [address] Gloria Smith MD [address] [place] [phone] documented as of this encounter Visit Diagnoses [...] mL/hr documented in this encounter Care Teams Leather Belt Loop Cutter Relationship Specialty Start Date End Date Tomas Hyman MD [address] [address] [address] [place] [address] PCP - General Family Medicine 09/05/18 Isidro Heredia MD Rheumatology 02/09/11 documented as of this encounter
--- OUTSIDE RECORDS SUMMARY | 2024-05-10 10:16 | XMS_ITS | Encounter Summary ---
Author Organization [facility] Address [address] [facility] [place] [address] Care Team Providers Care Tank House Operator Helper Name Role Phone Isidro Heredia MD Unavailable [phone] Tomas Hyman MD Primary Care Provider [phone] Reason for Visit * Treatment (Elective) - Closed Specialty Diagnoses / Procedures Referred By Lawrence shah Referred To Contact Diagnoses Rheumatoid arthritis of multiple sites with negative rheumatoid factor (HCC) Procedures [place] GOLIMUMAB FOR IV USE 1MG Gloria Smith MD [address] [place] [address] [address] Referral ID Status Reason Start Date Expiration Date Visits Re quested Visits Authorized [id number] Closed 05/22/2022 04/29/2023 12 12 Encounter Details Date Type Department Care Team (Late st Contact Info) Description 11/29/2022 9:06 AM CDT - 11/29/2022 11:59 PM CDT Hospital Encounter [facility] Medical [facility] - Rheumatology [address] [place] [address] Gloria Smith MD [address] [place] [address] Rheumatology Discharge Disposition: Home or [...] Body Mass Index 28.44 07/05/2022 10:45 AM POWER CLEANER OPERATOR documented in this encounter Discharge Instructions * Discharge Instructions* Shelby Higgins RN - 11/29/2022 10:10 AM CDT Discharge Instructions [facility] Rheumatology You have [...] Sunday through 01-02 call the office at [phone]. After hours or on the weekend call the exchange at [phone]. If you have had lab work done [...] tablet by mouth 2 times daily 09/04/2022 kqsvqnlmabf-mxoy-bply sorb, PF, 0.5-1-0.5 % SOLN Instill 1 [...] 11/29/2022 10:10 AM CDT JOSE Allred Deng [id number] 11/29/2022 Diagnosis: Rheumatoid arthritis without rheumatoid factor, [...] st Contact Info) Description 06/03/2024 1:00 PM POWER CLEANER OPERATOR Appointment [facility] - Rheumatology [address] [place] [address] [phone] 06/03/2024 2:00 PM POWER CLEANER OPERATOR Office Visit [facility] - Rheumatology [address] [place] [address] Gloria Smith MD [address] [place] [phone] documented as of this encounter Visit Diagnoses [...] mL/hr documented in this encounter Care Teams Tank House Operator Helper Relationship Specialty Start Date End Date Tomas Hyman MD [address] [address] [address] [place] [address] PCP - General Family Medicine 09/05/18 Isidro Heredia MD Rheumatology 02/09/11 documented as of this encounter
--- OUTSIDE RECORDS SUMMARY | 2024-05-10 10:16 | XMS_ITS | Encounter Summary ---
Author Organization [facility] Address [address] [facility] [place] [address] Care Team Providers Care Corporate Strategy Analyst Name Role Phone Isidro Heredia MD Unavailable [phone] Tomas Hyman MD Primary Care Provider [phone] Encounter Details Date Type Department Care Team [...] Contact Info) Description 06/03/2024 1:00 PM LIFE SCIENCES DIRECTOR Appointment [facility] - Rheumatology [address] [place] [address] 06/03/2024 2:00 PM LIFE SCIENCES DIRECTOR Office Visit [facility] - Rheumatology [address] [place] [address] Gloria Smith MD [address] [place] [phone] documented as of this encounter Visit Diagnoses Not on filedocumented in this encounter Care Teams Corporate Strategy Analyst Relationship Specialty Start Date End Date Tomas Hyman MD [address] [place] [address] PCP - General Family Medicine 09/05/18 Isidro Heredia MD Rheumatology 02/09/11 documented as of this encounter
--- OUTSIDE RECORDS SUMMARY | 2024-05-10 10:16 | XMS_ITS | Encounter Summary ---
Author Organization [facility] Address [address] [facility] [place] [address] Care Team Providers Care Director Of Restaurants Name Role Phone Isidro Heredia MD Unavailable [phone] Tomas Hyman MD Primary Care Provider [phone] Encounter Details Date Type Department Care Team [...] Info) Description 06/03/2024 1:00 PM PUBLIC HEALTH NURSE Appointment [facility] Medical [facility] - Rheumatology [address] [place] [address] 06/03/2024 2:00 PM PUBLIC HEALTH NURSE Office Visit [facility] Medical [facility] - Rheumatology [address] [place] [address] lGoria Smith MD [address] [place] [phone] documented as of this encounter Visit Diagnoses Not on filedocumented in this encounter Care Teams Director Of Restaurants Relationship Specialty Start Date End Date Tomas Hyman MD [address] [place] [address] PCP - General Family Medicine 09/05/18 Isidro Heredia MD Rheumatology 02/09/11 documented as of this encounter
--- OUTSIDE RECORDS SUMMARY | 2024-05-10 10:16 | XMS_ITS | Encounter Summary ---
Author Organization [facility] Address [address] [facility] [place] [address] Care Team Providers Care Group Practice Pediatrician Name Role Phone Isidro Heredia MD Unavailable [phone] Tomas Hyman MD Primary Care Provider [phone] Encounter Details Date Type Department Care Team [...] Contact Info) Description 06/03/2024 1:00 PM BUS DRIVER SUPERVISOR Appointment [facility] Medical [facility] - Rheumatology [address] [place] [address] 06/03/2024 2:00 PM BUS DRIVER SUPERVISOR Office Visit [facility] - Rheumatology [address] [place] [address] Gloria Smith MD [address] [place] [phone] documented as of this encounter Visit Diagnoses Not on filedocumented in this encounter Care Teams Group Practice Pediatrician Relationship Specialty Start Date End Date Tomas Hyman MD [address] [place] [address] PCP - General Family Medicine 09/05/18 Isidro Heredia MD Rheumatology 02/09/11 documented as of this encounter
--- OUTSIDE RECORDS SUMMARY | 2024-05-10 10:16 | XMS_ITS | Encounter Summary ---
Author Organization [facility] Address [address] [facility] [place] [address] Care Team Providers Care Clinical Documentation Nurse Name Role Phone Isidro Heredia MD Unavailable [phone] Tomas Hyman MD Primary Care Provider [phone] Reason for Referral * OP/Amb RFL Auth (Routine) - Closed Specialty Diagnoses / Procedures Referred By Contsarahi t Referred To Contact Diagnoses Right shoulder pain, unspecified chronicity Procedures [place] DRAIN/INJECT LARGE JOINT/BURSA Gloria [place] MD [address] [place] [address] Referral ID Status Reason Start Date Expiration Date Visits Re quested Visits Authorized [id number] Closed 09/05/2022 09/05/2023 1 1 Encounter Details Date Type Department Care Team (Late st Contact Info) Description 09/05/2022 2:20 PM CDT Office Visit [facility] - Rheumatology [address] [place] [address] Gloria [place] MD [facility] [place] [address] Rheumatoid arthritis involving right shoulder, [...] Body Mass Index 28.47 07/05/2022 10:45 AM SUPERVISOR LABORATORY ANIMAL FACILITY documented in this encounter Progress Notes * [...] History: Diagnosis Date ??? RA (rheumatoid arthritis) ([facility]) Past Surgical History: Procedure Laterality [...] to take medications when he travels to [place] in August 2022. - return to clinic [...] in his chart. - took alendronate from [id number]. The total time spent today was 40 minutes performing chart prep, review of data and visit with the patient. documented in this encounter Plan of Treatment Upcoming Encounters Date Type Department Care Team (Late st Contact Info) Description 06/03/2024 1:00 PM SUPERVISOR LABORATORY ANIMAL FACILITY Appointment [facility] - Rheumatology [address] [place] [address] 06/03/2024 2:00 PM SUPERVISOR LABORATORY ANIMAL FACILITY Office Visit [facility] - Rheumatology [address] [place] [address] Gloria [place] MD [facility][note 3] [place] [id number] documented as of this encounter Visit Diagnoses [...] documented in this encounter Care Teams Clinical Documentation Nurse Relationship Specialty Start Date End Date Tomas Hyman MD [address] [facility] [address] [place] [address] PCP - General Family Medicine 09/05/18 Isidro Heredia MD Rheumatology 02/09/11 documented as of this encounter
--- OUTSIDE RECORDS SUMMARY | 2024-05-10 10:16 | XMS_ITS | Encounter Summary ---
Author Organization [facility] Address [address] [facility] [place] [address] Care Team Providers Care Financial Planning Advisor Name Role Phone Isidro Heredia MD Unavailable [phone] Tomas Hyman MD Primary Care Provider [phone] Reason for Visit * Reason Onset Date Comments Rx Medication Issue 06/06/2023 Encounter Details Date Type Department Care Team (Late st Contact Info) Description 06/06/2023 Telephone [facility] Medical [facility] - Rheumatology [address] [place] [address] Gloria [place] MD [address] [place] [phone] Rx Medication Issue Social History Tobacco [...] AM CST Called patient and message given. DEVELOPER * Telephone Encounter - Gloria [place] MD - 06/06/2023 5:44 PM CST Please inform pt: I spoke with Kamila. will hold mtx while he receives radiation to reduce skin sensitivity. However, if arthritis flares up then he can resume mtx. Will continue folic acid and simponi. DEVELOPER * Telephone Encounter - Hmamad Rodriguez - 06/06/2023 3:59 PM CST Kamila with Dr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 She needs verbal that it's ok for pt to stop Mtx for 7 weeks & once done with radiation, he canre-start? She needs an answer today. DEVELOPER documented in this encounter Plan of Treatment Upcoming Encounters Date Type Department Care Team (Late st Contact Info) Description 06/03/2024 1:00 PM LAMP DEVELOPER Appointment [facility] - Rheumatology [address] [place] [address] 06/03/2024 2:00 PM LAMP DEVELOPER Office Visit [facility] - Rheumatology [address] [place] [address] [phone] Gloria [place] MD [address] [place] [phone] documented as of this encounter Visit Diagnoses Not on filedocumented in this encounter Care Teams Financial Planning Advisor Relationship Specialty Start Date End Date Tomas Hyman MD [address] [place], [place] [phone] PCP - General Family Medicine 09/05/18 Isidro Heredia MD Rheumatology 02/09/11 documented as of this encounter
--- OUTSIDE RECORDS SUMMARY | 2024-05-10 10:16 | XMS_ITS | Encounter Summary ---
Author Organization [facility] Address [address] [place] [place] [address] Care Team Providers Care Freight Conductor Name Role Phone Isidro Heredia MD Unavailable [phone] Tomas Hyman MD Primary Care Provider [phone] Reason for Visit * Reason Onset Date Comments Medication Prior Auth Request 09/05/2022 Encounter Details Date Type Department Care Team (Late st Contact Info) Description 09/05/2022 Telephone [facility] Medical [facility] - Rheumatology [address] [place] [address] Gloria [place] MD [address] [place] [phone] Medication Prior Auth Request Social History [...] PM CDT Please schedule simponi infusion at 8 weeks after his next infusion (10/04). documented in this encounter Plan of Treatment Upcoming Encounters Date Type Department Care Team (Late st Contact Info) Description 06/03/2024 1:00 PM ASSEMBLER RADIO AND ELECTRICAL Appointment [facility] - Rheumatology [address] [place] [address] [phone] 06/03/2024 2:00 PM ASSEMBLER RADIO AND ELECTRICAL Office Visit [facility] - Rheumatology [address] [place] [address] [phone] Gloria [place] MD [address] [place] [phone] documented as of this encounter Visit Diagnoses Not on filedocumented in this encounter Care Teams Freight Conductor Relationship Specialty Start Date End Date Tomas Hyman MD [address] [place] [address] PCP - General Family Medicine 09/05/18 Isidro Heredia MD Rheumatology 02/09/11 documented as of this encounter
--- OUTSIDE RECORDS SUMMARY | 2024-05-10 10:16 | XMS_ITS | Encounter Summary ---
Author Organization [facility] Address [address] [facility] [place] [address] Care Team Providers Care Heavy Duty Press Operator Name Role Phone Isidro Heredia MD Unavailable [phone] Tomas Hyman MD Primary Care Provider [phone] Reason for Visit * Treatment (Elective) - Closed Specialty Diagnoses / Procedures Referred By Lawrence shah Referred To Contact Diagnoses Rheumatoid arthritis without rheumatoid factor, multiple sites (HCC) Procedures [place] GOLIMUMAB FOR IV USE 1MG Gloria [place] MD [address] [place] [address] [address] Referral ID Status Reason Start Date Expiration Date Visits Re quested Visits Authorized [id number] Closed 05/18/2023 04/29/2024 8 8 Encounter Details Date Type Department Care Team (Late st Contact Info) Description 11/23/2023 10:52 AM CDT - 11/23/2023 11:59 PM CDT Hospital Encounter [facility] Medical [facility] - Rheumatology [address] [place] [address] Gloria [place] MD [address] [place] [address] Rheumatology Discharge Disposition: Home or [...] - 11/23/2023 11:21 AM CDT Discharge Instructions [facility] [...] through Sunday 9-5 call the office at [phone]. After hours or on the weekend call [...] tablet by mouth 2 times daily 09/04/2022 ypkpcrtrftx-ktfm-xsbw sorb, PF, 0.5-1-0.5 % SOLN Instill 1 [...] - 11/23/2023 11:21 AM CDT JOSE Deng [id number] 11/23/2023 Diagnosis: Rheumatoid arthritis without rheumatoid factor, [...] Contact Info) Description 06/03/2024 1:00 PM SENIOR BIOSTATISTICIAN Appointment [facility] - Rheumatology [address] [place] [address] [phone] 06/03/2024 2:00 PM SENIOR BIOSTATISTICIAN Office Visit [facility] - Rheumatology [address] [place] [address] [phone] Gloria [place] MD [address] [place] [phone] documented as of this encounter Visit Diagnoses [...] mL/hr documented in this encounter Care Teams Heavy Duty Press Operator Relationship Specialty Start Date End Date Tomas Hyman MD [address] [place] [address] PCP - General Family Medicine 09/05/18 Isidro Heredia MD Rheumatology 02/09/11 documented as of this encounter
--- OUTSIDE RECORDS SUMMARY | 2024-05-10 10:16 | XMS_ITS | Encounter Summary ---
Author Organization [facility] Address [address] [facility] [place] [address] Care Team Providers Care Equipment Service Technician Name Role Phone Isidro Heredia MD Unavailable [phone] Tomas Hyman MD Primary Care Provider [phone] Encounter Details Date Type Department Care Team (Late Contact Info) Description 11/13/2023 Orders Only [facility] - Rheumatology [address] [facility], [address] [place] [phone] Gloria [place] MD [address] [place] [phone] Social History Tobacco Use Types Packs/Day [...] (Late Contact Info) Description 06/03/2024 1:00 PM LANGUAGE PATHOLOGIST Appointment [facility] - Rheumatology [address] [place] [address] 06/03/2024 2:00 PM LANGUAGE PATHOLOGIST Office Visit [facility] - Rheumatology [address] [place] [address] Gloria [place] MD [address] [place] [phone] documented as of this encounter Visit Diagnoses Not on filedocumented in this encounter Care Teams Equipment Service Technician Relationship Specialty Start Date End Date Tomas Hyman MD [address] [facility] [address] [place] [phone] PCP - General Family Medicine 09/05/18 Isidro Heredia MD Rheumatology 02/09/11 documented as of this encounter
--- OUTSIDE RECORDS SUMMARY | 2024-05-10 10:16 | XMS_ITS | Encounter Summary ---
Author Organization [facility] Address [address] [facility] [place] [address] Care Team Providers Care History Instructor Name Role Phone Isidro Heredia MD Unavailable [phone] Tomas Hyman MD Primary Care Provider [phone] Reason for Visit * Reason Onset Date Comments MEDICATION REFILL 07/04/2023 Encounter Details Date Type Department Care Team (Late st Contact Info) Description 07/04/2023 Refill [facility] Medical [facility] - Rheumatology [address] [place] [address] Gloria [place] MD [address] [place] [phone] MEDICATION REFILL Social History Tobacco Use [...] Dixie Beard LPN - 07/04/2023 3:12 PM AUDIT REVIEWER NON-BIOLOGIC REFILL REQUEST Last OV: 05/29/2023 Next [...] 0911 02/08/21 1645 CRP 0.49 <0.20 <1 T REVIEWER documented in this encounter Plan of Treatment Upcoming Encounters Date Type Department Care Team (Late st Contact Info) Description 06/03/2024 1:00 PM AUDIT REVIEWER Appointment [facility] - Rheumatology [address] [place] [address] [phone] 06/03/2024 2:00 PM AUDIT REVIEWER Office Visit [facility] - Rheumatology [address] [place] [address] [phone] Gloria [place] MD [address] [place] [phone] documented as of this encounter Visit Diagnoses Diagnosis Rheumatoid arthritis of multiple sites with negative rheumatoid factor (HCC) Neuropathy Mononeuritis of unspecified site documented in this encounter Care Teams History Instructor Relationship Specialty Start Date End Date Tomas Hyman MD [address] [place] [address] PCP - General Family Medicine 09/05/18 Isidro Heredia MD Rheumatology 02/09/11 documented as of this encounter
--- OUTSIDE RECORDS SUMMARY | 2024-05-10 10:16 | XMS_ITS | Encounter Summary ---
Author Organization [facility] Address [address] [facility] [place] [address] Care Team Providers Care Process Manager Name Role Phone Isidro Heredia MD Unavailable [phone] Tomas Hyman MD Primary Care Provider [phone] Reason for Visit * Treatment (Elective) - Closed Specialty Diagnoses / Procedures Referred By Lawrence shah Referred To Contact Diagnoses Rheumatoid arthritis without rheumatoid factor, multiple sites (HCC) Procedures [place] GOLIMUMAB FOR IV USE 1MG Gloria [place] MD [address] [place] [address] [address] Referral ID Status Reason Start Date Expiration Date Visits Re quested Visits Authorized [id number] Closed 05/18/2023 04/29/2024 8 8 Encounter Details Date Type Department Care Team (Late st Contact Info) Description 01/29/2024 9:00 AM CDT - 01/29/2024 11:59 PM CDT Hospital Encounter [facility] Medical [facility] - Rheumatology [address] [place] [address] Gloria [place] MD [address] [place] [address] Rheumatology Discharge Disposition: Home or [...] - 01/29/2024 9:26 AM CDT Discharge Instructions [facility] Rheumatology [...] through Sunday 9-5 call the office at [phone]. After hours or on the weekend call the exchange at . If you have had lab work done today the staff will contact you via mail, e-mail or telephone with the results. Remember to bring a copy of your labs to [facility]. It may save you an unnecessary [...] tablet by mouth 2 times daily 09/04/2022 ultanouhvyu-qepv-hp lysorb, PF, 0.5-1-0.5 % SOLN Instill 1 [...] - 01/29/2024 9:26 AM CDT JOSE Deng [id number] 01/29/2024 Diagnosis: Rheumatoid arthritis without rheumatoid factor, [...] st Contact Info) Description 06/03/2024 1:00 PM SOLDER DEPOSIT OPERATOR Appointment [facility] - Rheumatology [address] [place] [address] 06/03/2024 2:00 PM SOLDER DEPOSIT OPERATOR Office Visit [facility] - Rheumatology [address] [place] [address] Gloria [place] MD [address] [place] [phone] documented as of this encounter Visit [...] documented in this encounter Care Teams Process Manager Relationship Specialty Start Date End Date Tomas Hyman MD [address] [facility] [address] [place] [address] PCP - General Family Medicine 09/05/18 Isidro Heredia MD Rheumatology 02/09/11 documented as of this encounter
--- OUTSIDE RECORDS SUMMARY | 2024-05-10 10:16 | XMS_ITS | Encounter Summary ---
Author Organization [facility] Address [address] [facility] [place] [address] Care Team Providers Care Food And Nutrition Supervisor Name Role Phone Isidro Heredia MD Unavailable [phone] Tomas Hyman MD Primary Care Provider Encounter [...] Contact Info) Description 06/03/2024 1:00 PM EDGE SETTER Appointment [facility] Medical [facility] - Rheumatology [address] [place] [address] 06/03/2024 2:00 PM EDGE SETTER Office Visit [facility] - Rheumatology [address] [place] [address] Gloria [place] MD [address] [place] [phone] documented as of this encounter Visit Diagnoses Not on filedocumented in this encounter Care Teams Food And Nutrition Supervisor Relationship Specialty Start Date End Date Tomas Hyman MD [address] [place] [address] PCP - General Family Medicine 09/05/18 Isidro Heredia MD Rheumatology 02/09/11 documented as of this encounter
--- OUTSIDE RECORDS SUMMARY | 2024-05-10 10:17 | XMS_ITS | Encounter Summary ---
Author Organization [facility] Address [address] [place] [address] Care Team Providers Care Flight Teacher Name Role Phone Isidro Heredia MD Unavailable [phone] Tomas Hyman MD Primary Care Provider [phone] Reason for Visit * Treatment (Elective) - Closed Specialty Diagnoses / Procedures Referred By Contsarahi t Referred To Contact Diagnoses Rheumatoid arthritis of multiple sites with negative rheumatoid factor (HCC) Procedures [place] GOLIMUMAB FOR IV USE 1MG Gloria Smiht MD [address] [place] [address] [address] Referral ID Status Reason Start Date Expiration Date Visits Re quested Visits Authorized [id number] Closed 05/22/2022 04/29/2023 12 12 Encounter Details Date Type Department Care Team (Latest Contact Info) Description 08/02/2022 11:20 AM CDT - 08/02/2022 11:59 PM CDT Hospital Encounter [facility] [address] [place] [address] Tomas Hyman MD [address] [place] [address] Discharge Disposition: Home or Self [...] Body Mass Index 29.18 07/05/2022 10:45 AM CLIENT SUPPORT ASSOCIATE documented in this encounter Medications at Time of Discharge Medication Sig Dispensed Refills Start Date End Date aspirin EC (ECOTRIN) 81 MG tablet Take 1 (one) tablet by mouth once daily 90 tablet 11/14/2021 atorvastatin (LIPITOR) 40 MG tablet Take 1 (one) tablet by mouth at bedtime zqxpkmaiejs-gfoo-kg lysorb, PF, 0.5-1-0.5 % SOLN Instill 1 [...] this encounter Progress Notes * Kae Shell, DRAWING MACHINE OPERATOR-GRADUATE RN - 08/02/2022 1:30 PM CDT Chalino Deng 1960 Patient completed scheduled Treatment at [facility]. Please call with any questions [phone]. BP 109/65 Pulse 76 Temp 98.4 ??F [...] Contact Info) Description 06/03/2024 1:00 PM CLIENT SUPPORT ASSOCIATE Appointment [facility] - Rheumatology [address] [place] [address] 06/03/2024 2:00 PM CLIENT SUPPORT ASSOCIATE Office Visit [facility] - Rheumatology [address] [place] [address] Gloria [place] MD [address] [place] [phone] documented as of this encounter Visit [...] mL/hr documented in this encounter Care Teams Flight Teacher Relationship Specialty Start Date End Date Tomas Hyman MD [address] [place] [address] PCP - General Family Medicine 09/05/18 Isidro Heredia MD Rheumatology 02/09/11 documented as of this encounter
--- OUTSIDE RECORDS SUMMARY | 2024-05-10 10:18 | XMS_ITS | Encounter Summary ---
Author Organization [facility] Address [address] [place] [address] Care Team Providers Care Paving Bed Maker Name Role Phone Isidro Heredia MD Unavailable [phone] Tomas Hyman MD Primary Care Provider [phone] Reason for Referral * OP/Amb RFL Auth (Routine) - Closed Specialty Diagnoses / Procedures Referred By Contsarahi t Referred To Contact Diagnoses Right shoulder pain, unspecified chronicity Procedures [place] DRAIN/INJECT LARGE JOINT/BURSA Gloria [place] MD [address] [place] [address] Referral ID Status Reason Start Date Expiration Date Visits Re quested Visits Authorized [id number] Closed 06/03/2021 06/03/2022 1 1 ING TABLE OPERATOR Reason for Visit * Reason Comments Rheumatoid Arthritis Encounter Details Date Type Department Care Team (Late st Contact Info) Description 06/03/2021 1:00 PM CUTTING TABLE OPERATOR Office Visit [facility] - Rheumatology [address] [place] [address] Gloria [place] MD [facility] [place] [address] Rheumatoid arthritis of multiple sites [...] COVID-19? No / Unsure 06/03/2021 12:36 PM CUTTING TABLE OPERATOR documented as of this encounter Last Filed Vital Signs Vital Sign Reading Time Taken Comments Blood Pressure 135/78 06/03/2021 12:46 PM CUTTING TABLE OPERATOR Pulse 106 06/03/2021 12:46 PM CUTTING TABLE OPERATOR Temperature - - Respiratory Rate - - Oxygen Saturation - - Inhaled Oxygen Concentration - - Weight 95.7 kg (211 lb) 06/03/2021 12:46 PM CUTTING TABLE OPERATOR Height 177.8 cm (5' 10 ) 06/03/2021 12:46 PM CUTTING TABLE OPERATOR Body Mass Index 30.28 06/03/2021 12:46 PM CUTTING TABLE OPERATOR documented in this encounter Progress Notes [...] in MCP and PIP joints bilaterally. Hand chief security and safety officer is decreased bilaterally. Tenderness in right [...] bone density scan - took alendronate from [id number]. The total time spent today was 40 minutes performing chart prep, review of data and visit with the patient. ING TABLE OPERATOR documented in this encounter Plan of Treatment Upcoming Encounters Date Type Department Care Team (Late st Contact Info) Description 06/03/2024 1:00 PM CUTTING TABLE OPERATOR Appointment [facility] - Rheumatology [address] [place] [address] [phone] 06/03/2024 2:00 PM CUTTING TABLE OPERATOR Office Visit [facility] - Rheumatology [address] [place] [address] [phone] Gloria [place] MD [address] [place] [phone] Scheduled Orders Name Type Priority Associated Diagnoses [...] of this report has been sent to [facility] Resulting Agency Comment Lab Testing performed at: [facility] [place] [id number] [facility] [id number] Gloria [place] MD LAB - CHEMISTRY MARII ARAUJO [facility] INSURANCE BILL [address] [place] [address] * (ABNORMAL) CBC WITH DIFFERENTIAL (07/27/2021 11:07 [...] this report has been sent to [facility] Resulting Agency Comment Lab Testing performed at: [facility] ??[facility] [id number] Gloria [place] MD LAB - HEMATOLOGY ORD ERABLES [facility] INSURANCE BILL [address] [place] [address] documented in this encounter Visit Diagnoses Diagnosis [...] at 1445 $ Given 06/03/2021 2:37 PM CUTTING TABLE OPERATOR Right Shoulder triamcinolone acetonide (Kenalog-40) injection 40 mg 40 mg, Intra-articular, ONCE, 1 dose, On Sun06/03/21 at 1445, Shake well before using. $ Given 06/03/2021 2:38 PM CUTTING TABLE OPERATOR 40 mg Righ t Shoulder documented in this encounter Care Teams Paving Bed Maker Relationship Specialty Start Date End Date Tomas Hyman MD [address] [facility] [address] [place] [address] PCP - General Family Medicine 09/05/18 Isidro Heredia MD Rheumatology 02/09/11 documented as of this encounter
--- OUTSIDE RECORDS SUMMARY | 2024-05-10 10:18 | XMS_ITS | Encounter Summary ---
Author Organization [facility] Address [address] [facility] [place] [address] Care Team Providers Care Agriculture Mechanic Name Role Phone Isidro Heredia MD Unavailable [phone] Tomas Hyman MD Primary Care Provider [phone] Reason for Visit * Reason Comments Follow-up Encounter Details Date Type Department Care Team (Late st Contact Info) Description 09/02/2021 11:00 AM CDT Office Visit [facility] - Rheumatology [address] [place] [address] Gloria Smith MD [address] [place] [place] [phone] Rheumatoid arthritis of multiple sites with [...] ordered prednisone 60 mg taper, pending his cell efficiency supervisor's approval. Followed by 5 mg b.i.d. at baseline. - he can increase tizanidine to 4 mg b.i.d. p.r.n.. Osteoporosis - Will repeat DEXA bone density scan - took alendronate from 1973-4856. The total time spent today was 40 minutes performing chart prep, review of data and visit with the patient. documented in this encounter Plan of Treatment Upcoming Encounters Date Type Department Care Team (Late st Contact Info) Description 06/03/2024 1:00 PM MEDIA LAW FACULTY MEMBER Appointment [facility] - Rheumatology [address] [place] [address] [phone] 06/03/2024 2:00 PM MEDIA LAW FACULTY MEMBER Office Visit [facility] - Rheumatology [address] [place] [address] [phone] Gloria Smith MD [address] [place] [phone] documented as of this encounter Visit Diagnoses Diagnosis Rheumatoid arthritis of multiple sites with negative rheumatoid factor (HCC)- Primary documented in this encounter Care Teams Agriculture Mechanic Relationship Specialty Start Date End Date Tomas Hyman MD [address] [place] [address] PCP - General Family Medicine 09/05/18 Isidro Heredia MD Rheumatology 02/09/11 documented as of this encounter
--- OUTSIDE RECORDS SUMMARY | 2024-05-10 10:18 | XMS_ITS | Encounter Summary ---
Author Organization [facility] Address [address] [facility] [place] [address] Care Team Providers Care Exhaust And Muffler Fitter Name Role Phone Isidro Heredia MD Unavailable [phone] Tomas Hyman MD Primary Care Provider [phone] Reason for Referral * OP/Amb RFL Auth (Routine) - Closed Specialty Diagnoses / Procedures Referred By Contsarahi t Referred To Contact Diagnoses Right shoulder pain, unspecified chronicity Procedures AK DRAIN/INJECT LARGE JOINT/BURSA Gloria Smith MD [address] [place] [address] Referral ID Status Reason Start Date Expiration Date Visits Re quested Visits Authorized [id number] Closed 05/19/2022 05/19/2023 1 1 CHING PAD MECHANIC Reason for Visit * Reason Comments Follow-up Encounter Details Date Type Department Care Team (Late st Contact Info) Description 05/19/2022 11:20 AM LAUNCHING PAD MECHANIC Office Visit [facility] - Rheumatology [address] [place] [address] Gloria Smith MD [facility] [place] [address] Rheumatoid arthritis of multiple sites [...] Coronavirus/COVID-19? No / Unsure 05/19/2022 10:58 AM LAUNCHING PAD MECHANIC documented as of this encounter Last Filed Vital Signs Vital Sign Reading Time Taken Comments Blood Pressure 115/68 05/19/2022 11:04 AM LAUNCHING PAD MECHANIC Pulse 81 05/19/2022 11:04 AM LAUNCHING PAD MECHANIC Temperature - - Respiratory Rate 22 05/19/2022 11:04 AM LAUNCHING PAD MECHANIC Oxygen Saturation - - Inhaled Oxygen Concentration - - Weight 101.6 kg (224 lb) 05/19/2022 11:04 AM LAUNCHING PAD MECHANIC Height 177.8 cm (5' 10 ) 05/19/2022 11:04 AM LAUNCHING PAD MECHANIC Body Mass Index 32.14 05/19/2022 11:04 AM LAUNCHING PAD MECHANIC documented in this encounter Patient Instructions * Patient Instructions* Gloria Smith MD - 05/19/2022 11:59 AM LAUNCHING PAD MECHANIC Discuss with pcp regarding repeating bone density and compare to previous results. CHING PAD MECHANIC documented in this encounter Progress Notes * [...] History: Diagnosis Date ??? RA (rheumatoid arthritis) ([facility]) Past Surgical History: Procedure Laterality Date ??? [...] in his chart. - took alendronate from [id number]. CHING PAD MECHANIC documented in this encounter Plan of Treatment Upcoming Encounters Date Type Department Care Team (Late st Contact Info) Description 06/03/2024 1:00 PM LAUNCHING PAD MECHANIC Appointment [facility] - Rheumatology [address] [place] [address] [phone] 06/03/2024 2:00 PM LAUNCHING PAD MECHANIC Office Visit [facility] - Rheumatology [address] [place] [address] Gloria Smith MD [address] [place] [phone] documented as of this encounter Visit Diagnoses [...] at 1245 $ Given 05/19/2022 12:24 PM LAUNCHING PAD MECHANIC 1 mL Right Shoulder methylPREDNISolone acetate (DEPO-Medrol) injection 40 mg 40 mg, Intra-articular, ONCE, 1 dose, On Sun05/19/22 at 1245 $ Given 05/19/2022 12:25 PM LAUNCHING PAD MECHANIC 40 mg Right Shoulder documented in this encounter Care Teams Exhaust And Muffler Fitter Relationship Specialty Start Date End Date Tomas Hyman MD [address] [facility] [address] [place] [address] PCP - General Family Medicine 09/05/18 Isidro Heredia MD Rheumatology 02/09/11 documented as of this encounter
--- OUTSIDE RECORDS SUMMARY | 2024-05-10 10:18 | XMS_ITS | Encounter Summary ---
Author Organization [facility] Address [address] [facility] [place] [address] Care Team Providers Care Military Technician Name Role Phone Isidro Heredia MD Unavailable [phone] Tomas Hyman MD Primary Care Provider [phone] Reason for Visit * Reason Onset Date Comments MEDICATION REFILL 02/27/2022 Encounter Details Date Type Department Care Team (Late st Contact Info) Description 02/27/2022 Refill [facility] Medical [facility] - Rheumatology [address] [place] [address] Gloria Smith MD [address] [place] [phone] MEDICATION REFILL Social History Tobacco Use [...] AM CDT LMOR for patient and sent [employer] message informing of Dr. Smith's below response. * Telephone Encounter - Gloria Smith MD - 02/28/2022 6:16 PM CDT Yes to renewing gabapentin. Dx: neuropathy Would defer aspirin and pantoprazole to pcp for intermediate teacher management. Those were started by dr. Heredia who is both batch unloader and pcp. * Telephone Encounter - Arian [...] 0.6 Recent Labs Component Name 02/10/22 0946 [id number] 52.1 No results for input(s): URICACID in the last 42975 hours. Last ESR: Recent Labs Component Name [...] st Contact Info) Description 06/03/2024 1:00 PM SLICE PLUG CUTTER OPERATOR HELPER Appointment [facility] - Rheumatology [address] [place] [address] [phone] 06/03/2024 2:00 PM SLICE PLUG CUTTER OPERATOR HELPER Office Visit [facility] - Rheumatology [address] [place] [address] Gloria Smith MD [address] [place] [phone] documented as of this encounter Procedures Procedure Name Priority Date/Time Associated Diagnosis Comments CBC W AUTO DIFFERENTIAL Routine 04/12/2022 3:14 PM SLICE PLUG CUTTER OPERATOR HELPER High risk medication use COMPREHENSIVE METABOLIC PANEL Routine 04/12/2022 3:14 PM SLICE PLUG CUTTER OPERATOR HELPER High risk medication use documented in this encounter Results * (ABNORMAL) COMPREHENSIVE METABOLIC PANEL (04/12/2022 3:14 PM SLICE PLUG CUTTER OPERATOR HELPER) Glucose 106(H) 70 - 99 mg/dL [facility] [...] BLOOD SPECIMEN / Unknown 04/12/2022 3:14 PM SLICE PLUG CUTTER OPERATOR HELPER 04/12/2022 Narrative Resulting Agency Comment Lab Testing performed at: [facility] ??[facility] [id number] Gloria Smith MD LAB - CHEMISTRY CALEBE VAN [facility] INSURANCE BILL [address] [place] [address] * (ABNORMAL) CBC WITH DIFFERENTIAL (04/12/2022 3:14 PM SLICE PLUG CUTTER OPERATOR HELPER) WBC 8.2 3.4 - 10.8 x10E3/uL [facility] [...] BLOOD SPECIMEN / Unknown 04/12/2022 3:14 PM SLICE PLUG CUTTER OPERATOR HELPER 04/12/2022 Narrative Resulting Agency Comment [facility] performed at: [facility] [address] [facility] ??[facility] [id number] Gloria Smith MD LAB - HEMATOLOGY ORD ERABLES [facility] INSURANCE BILL [address] [place] [address] documented in this encounter Visit Diagnoses Diagnosis Chronic neck pain- Primary Cervicalgia Rheumatoid arthritis of multiple sites with negative rheumatoid factor (HCC) Chronic back pain, unspecified back location, unspecified back pain laterality High risk medication use Encounter for long-term (current) use of other medications Neuropathy Mononeuritis of unspecified site documented in this encounter Care Teams Military Technician Relationship Specialty Start Date End Date Tomas Hyman MD [address] [facility] [address] [place] [address] PCP - General Family Medicine 09/05/18 Isidro Heredia MD Rheumatology 02/09/11 documented as of this encounter
--- OUTSIDE RECORDS SUMMARY | 2024-05-10 10:18 | XMS_ITS | Encounter Summary ---
Author Organization [facility] Address [address] [facility] [address] Care Team Providers Care It Network Administrator Name Role Phone Isidro Heredia MD Unavailable [phone] Tomas Hyman MD Primary Care Provider [phone] Encounter Details Date Type Department Care Team [...] Contact Info) Description 06/03/2024 1:00 PM FEED MILLER Appointment [facility] - Rheumatology [address] [place] [address] 06/03/2024 2:00 PM FEED MILLER Office Visit [facility] - Rheumatology [address] [place] [address] Gloria Smith MD [address] [place] [phone] documented as of this encounter Visit Diagnoses Not on filedocumented in this encounter Care Teams It Network Administrator Relationship Specialty Start Date End Date Tomas Hyman MD [address] [facility] [address] [place] [address] PCP - General Family Medicine 09/05/18 Isidro Heredia MD Rheumatology 02/09/11 documented as of this encounter
--- OUTSIDE RECORDS SUMMARY | 2024-05-10 10:18 | XMS_ITS | Encounter Summary ---
Author Organization [facility] Address [address] [facility] [place] [address] Care Team Providers Care Assembly Machine Tool Setter Name Role Phone Isidro Heredia MD Unavailable [phone] Tomas Hyman MD Primary Care Provider [phone] Reason for Visit * Treatment (Routine) - Closed Specialty Diagnoses / Procedures Referred By Lawrence shah Referred To Contact Infusion Therapy Nurse Diagnoses Rheumatoid arthritis without rheumatoid factor, multiple sites (HCC) Procedures GA GOLIMUMAB FOR IV USE 1MG Gloria Smith MD [address] [place] [address] [address] Referral ID Status Reason Start Date Expiration Date Visits Re quested Visits Authorized [id number] Closed 10/19/2020 04/29/2021 1 8 Encounter Details Date Type Department Care Team (Late st Contact Info) Description 02/08/2021 1:51 PM CDT - 02/08/2021 11:59 PM CDT Hospital Encounter [facility] Medical [facility] - Rheumatology [address] [place] [address] Gloria Smith MD [address] [place] [address] Discharge Disposition: Home or Self [...] Sahu RN - 02/08/2021 2:21 PM CDT [place] Rheumatology Post Infusion instructions [...] through Sunday 9-5 call the office at [phone] After hours or on the weekend call the exchange at [phone] If you have had lab work done [...] 1 (one) tablet by mouth at bedtime rpwgivtmine-yyhz-iv lysorb, PF, 0.5-1-0.5 % SOLN Instill 1 [...] - 02/08/2021 2:19 PM CDT JOSE Deng [id number] 02/08/2021 Diagnosis: Rheumatoid arthritis without rheumatoid factor, [...] st Contact Info) Description 06/03/2024 1:00 PM BLACKENER Appointment [facility] - Rheumatology [address] [place] [address] 06/03/2024 2:00 PM BLACKENER Office Visit [facility] - Rheumatology [address] [place] [address] Gloria Smith MD [address] [place] [phone] documented as of this encounter Visit [...] mL/hr documented in this encounter Care Teams Assembly Machine Tool Setter Relationship Specialty Start Date End Date Tomas Hyman MD [address] [facility] [address] [place] [address] PCP - General Family Medicine 09/05/18 Isidro Heredia MD Rheumatology 02/09/11 documented as of this encounter
--- OUTSIDE RECORDS SUMMARY | 2024-05-10 10:18 | XMS_ITS | Encounter Summary ---
Author Organization [facility] Address [address] [facility] [place] [address] Care Team Providers Care Roller Presser Operator Name Role Phone Isidro Heredia MD Unavailable [phone] Tomas Hyman MD Primary Care Provider [phone] Reason for Visit * Reason Onset Date Comments MEDICATION REFILL 08/03/2021 Encounter Details Date Type Department Care Team (Late st Contact Info) Description 08/03/2021 Refill [facility] Medical [facility] - Rheumatology [address] [place] [address] Gloria Smith MD [address] [place] [phone] MEDICATION REFILL Social History Tobacco Use [...] to see if he was able to spanish moss picker medication. NON-BIOLOGIC REFILL REQUEST Last OV: 06/03/2021 [...] ec,pantoprazole ec,methotrexate 06/14/2020 gabapentin,prednisone,celecoxib 10-19-2020 folic acid [id number] Upcoming visit: 09-02-2021 documented in this encounter Plan of Treatment Upcoming Encounters Date Type Department Care Team (Late st Contact Info) Description 06/03/2024 1:00 PM REFRIGERATION SERVICE INSPECTOR Appointment [facility] - Rheumatology [address] [place] [address] 06/03/2024 2:00 PM REFRIGERATION SERVICE INSPECTOR Office Visit [facility] - Rheumatology [address] [place] [address] Gloria Smith MD [facility] [place] [phone] documented as of this encounter Visit Diagnoses Diagnosis Rheumatoid arthritis of multiple sites with negative rheumatoid factor (HCC) documented in this encounter Care Teams Roller Presser Operator Relationship Specialty Start Date End Date Tomas Hyman MD [address] [place] [address] PCP - General Family Medicine 09/05/18 Isidro Heredia MD Rheumatology 02/09/11 documented as of this encounter
--- OUTSIDE RECORDS SUMMARY | 2024-05-10 10:18 | XMS_ITS | Encounter Summary ---
Author Organization [facility] Address [address] [facility] [place] [address] Care Team Providers Care Battery Tester Name Role Phone Isidro Heredia MD Unavailable Tomas Hyman MD Primary Care Provider [phone] Reason for Visit * Treatment (Elective) - Closed Specialty Diagnoses / Procedures Referred By Contsarahi t Referred To Contact Diagnoses Rheumatoid arthritis of multiple sites with negative rheumatoid factor (HCC) Procedures [place] GOLIMUMAB FOR IV USE 1MG Gloria Smith MD [address] [place] [address] [address] Referral ID Status Reason Start Date Expiration Date Visits Re quested Visits Authorized [id number] Closed 05/22/2022 04/29/2023 12 12 Encounter Details Date Type Department Care Team (Latest Contact Info) Description 07/05/2022 10:42 AM SUPERINTENDENT OVERHEAD DISTRIBUTION - 07/05/2022 11:59 PM SUPERINTENDENT OVERHEAD DISTRIBUTION Hospital Encounter [facility] [address] [place] [address] Tomas Hyman MD [address] [place] [address] Discharge Disposition: Home or Self [...] Comments Blood Pressure 121/71 07/05/2022 10:45 AM SUPERINTENDENT OVERHEAD DISTRIBUTION Pulse 78 07/05/2022 10:45 AM SUPERINTENDENT OVERHEAD DISTRIBUTION Temperature 36.1 ??C (97 ??F) 07/05/2022 10:45 AM SUPERINTENDENT OVERHEAD DISTRIBUTION Respiratory Rate 18 07/05/2022 10:45 AM SUPERINTENDENT OVERHEAD DISTRIBUTION Oxygen Saturation 100% 07/05/2022 10:45 AM SUPERINTENDENT OVERHEAD DISTRIBUTION Inhaled Oxygen Concentration - - Weight 95.3 kg (210 lb) 07/05/2022 10:45 AM SUPERINTENDENT OVERHEAD DISTRIBUTION Height 177.8 cm (5' 10 ) 07/05/2022 10:45 AM SUPERINTENDENT OVERHEAD DISTRIBUTION Body Mass Index 30.13 07/05/2022 10:45 AM SUPERINTENDENT OVERHEAD DISTRIBUTION documented in this encounter Medications at Time of Discharge Medication Sig Dispensed Refills Start Date End Date aspirin EC (ECOTRIN) 81 MG tablet Take 1 (one) tablet by mouth once daily 90 tablet 11/14/2021 atorvastatin (LIPITOR) 40 MG tablet Take 1 (one) tablet by mouth at bedtime caypsmzjpdr-cwec-ac lysorb, PF, 0.5-1-0.5 % SOLN Instill 1 [...] PM CST Patient completed scheduled Simponi at [facility]. Please call with any questions [phone]. BP 121/71 Pulse 78 Temp 97 ??F Resp 18 Ht 1.778 m (5' 10 ) Wt 95.3 kg (210 lb) SpO2 100% Medications 0.9% NaCl injection 1-40 mL (10 mL Intracatheter $ Given 07/05/22 1224) golimumab (Simponi Aria) 190 mg in 0.9% NaCl IV 100 mL infusion (0 mg Intravenous Stopped 07/05/22 1151) RINTENDENT OVERHEAD DISTRIBUTION documented in this encounter Plan of Treatment Upcoming Encounters Date Type Department Care Team (Late st Contact Info) Description 06/03/2024 1:00 PM SUPERINTENDENT OVERHEAD DISTRIBUTION Appointment [facility] - Rheumatology [address] [place] [address] 06/03/2024 2:00 PM SUPERINTENDENT OVERHEAD DISTRIBUTION Office Visit [facility] - Rheumatology [address] [place] [address] Gloria Smith MD [address] [place] [phone] documented as of this encounter Visit [...] blood draws. $ Given 07/05/2022 12:24 PM SUPERINTENDENT OVERHEAD DISTRIBUTION 10 mL $ Given 07/05/2022 10:51 AM SUPERINTENDENT OVERHEAD DISTRIBUTION 10 mL golimumab (Simponi Aria) 190 mg [...] filter. $ New Bag/Syringe 07/05/2022 11:20 AM SUPERINTENDENT OVERHEAD DISTRIBUTION 190 mg 200 mL/hr documented in this encounter Care Teams Battery Tester Relationship Specialty Start Date End Date Tomas Hyman MD [address] [facility] [address] [place] [address] PCP - General Family Medicine 09/05/18 Isidro Heredia MD Rheumatology 02/09/11 documented as of this encounter
--- OUTSIDE RECORDS SUMMARY | 2024-05-10 10:18 | XMS_ITS | Encounter Summary ---
Author Organization [facility] Address [address] [facility] [place] [address] Care Team Providers Care Wire Winder Name Role Phone Isidro Heredia MD Unavailable [phone] Tomas Hyman MD Primary Care Provider [phone] Reason for Visit * Reason Onset Date Comments Scheduling 06/26/2022 Pt scheduled for Simponi infusion 07/05 at [place] Encounter Details Date Type Department Care Team (Late st Contact Info) Description 06/26/2022 Telephone [facility] [address] [facility] [address] [place], [place] [phone] Alisia Silva, RN Scheduling (Pt scheduled for Simponi infusion 07/05 at [place]) Social History Tobacco Use Types Packs/Day Years [...] (Late Contact Info) Description 06/03/2024 1:00 PM SHEET METAL ERECTOR Appointment [facility] - Rheumatology [address] [place] [address] 06/03/2024 2:00 PM SHEET METAL ERECTOR Office Visit [facility] - Rheumatology [address] [place] [address] Gloria Smith MD [address] [place] [address] documented as of this encounter Visit Diagnoses Not on filedocumented in this encounter Care Teams Wire Winder Relationship Specialty Start Date End Date Tomas Hyman MD [address] [place] [address] PCP - General Family Medicine 09/05/18 Isidro Heredia MD Rheumatology 02/09/11 documented as of this encounter
--- OUTSIDE RECORDS SUMMARY | 2024-05-10 10:18 | XMS_ITS | Encounter Summary ---
Author Organization [facility] Address [address] [facility] [place] [address] Care Team Providers Care Auto Service Instructor Name Role Phone Isidro Heredia MD Unavailable [phone] Tomas Hyman MD Primary Care Provider [phone] Reason for Visit * Reason Onset Date Comments Medication Prior Auth Request 02/10/2022 Encounter Details Date Type Department Care Team (Late st Contact Info) Description 02/10/2022 Telephone [facility] - Rheumatology [address] [place] [address] Gloria Smith MD [address] [place] [phone] Medication Prior Auth Request Social History [...] Coronavirus/COVID-19? No / Unsure 05/19/2022 10:58 AM GROUND EQUIPMENT MECHANIC documented as of this encounter Miscellaneous Notes * Telephone Encounter - Arian Fernando RN - 05/19/2022 12:49 PM CST Called the [facility] and spoke with Denise who verified that the Simponi Infusion plan was received. I was informed that the PA will be verified by the PA team at [facility] and then the patient contacted to schedule. ND EQUIPMENT MECHANIC * Telephone Encounter - Gloria Smith MD - 05/19/2022 12:41 PM CST He is okay to have infusion at [facility]. I sent a therapy plan. No need to follow up PA. ND EQUIPMENT MECHANIC * Telephone Encounter - Gloria Smith MD - 05/18/2022 9:04 PM CST Please follow up. ND EQUIPMENT MECHANIC * Telephone Encounter - Gloria Smith MD - 02/10/2022 1:00 PM CDT Request simponi 2 mg/kg at weeks 0, 4, and then every 8 weeks. 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 documented in this encounter Plan of Treatment Upcoming Encounters Date Type Department Care Team (Late st Contact Info) Description 06/03/2024 1:00 PM GROUND EQUIPMENT MECHANIC Appointment [facility] - Rheumatology [address] [place] [address] [phone] 06/03/2024 2:00 PM GROUND EQUIPMENT MECHANIC Office Visit [facility] - Rheumatology [address] [place] [address] Gloria Smith MD [address] [place] [phone] documented as of this encounter Visit Diagnoses Not on filedocumented in this encounter Care Teams Auto Service Instructor Relationship Specialty Start Date End Date Tomas Hyman MD [address] [place] [address] PCP - General Family Medicine 09/05/18 Isidro Heredia MD Rheumatology 02/09/11 documented as of this encounter
--- OUTSIDE RECORDS SUMMARY | 2024-05-10 10:18 | XMS_ITS | Encounter Summary ---
Author Organization [facility] Address [address] [place] [address] Care Team Providers Care Truss Driver Helper Name Role Phone Isidro Heredia MD Unavailable [phone] Tomas Hyman MD Primary Care Provider [phone] Reason for Visit * Reason Onset Date Comments MEDICATION REFILL 11/13/2021 Encounter Details Date Type Department Care Team (Late st Contact Info) Description 11/13/2021 Refill [facility] - Rheumatology [address] [place] [address] Gloria Smith MD [address] [place] [phone] MEDICATION REFILL Social History Tobacco Use [...] 0.7 0.7 0.6 No results for input(s): [id number] in the last 83074 hours. No results for input(s): URICACID in the last 45661 hours. Last ESR: Recent Labs Component Name 02/08/21 1645 06/29/20 1410 02/06/20 1332 SEDRATE 5 13 12 Last 3 CRP: Recent Labs Component Name 02/08/21 1645 06/29/20 1410 02/06/20 1332 CRP <1 <0.20 0.21 documented in this encounter Plan of Treatment Upcoming Encounters Date Type Department Care Team (Late st Contact Info) Description 06/03/2024 1:00 PM DESIGN ASSEMBLER Appointment [facility] - Rheumatology [address] [place] [address] 06/03/2024 2:00 PM DESIGN ASSEMBLER Office Visit [facility] - Rheumatology [address] [place] [address] Gloria Smith MD [address] [place] [phone] documented as of this encounter Visit Diagnoses Diagnosis Rheumatoid arthritis of multiple sites with negative rheumatoid factor (HCC) documented in this encounter Care Teams Truss Driver Helper Relationship Specialty Start Date End Date Tomas Hyman MD [address] [facility] [address] [place] [address] PCP - General Family Medicine 09/05/18 Isidro Heredia MD Rheumatology 02/09/11 documented as of this encounter
--- OUTSIDE RECORDS SUMMARY | 2024-05-10 10:18 | XMS_ITS | Encounter Summary ---
Author Organization [facility] Address [address] [place] [address] Care Team Providers Care Rivet Tapping Machine Operator Name Role Phone Isidro Heredia MD Unavailable [phone] Tomas Hymna MD Primary Care Provider [phone] Encounter Details Date Type Department Care Team (Late Contact Info) Description 07/11/2022 Orders Only [facility] - Rheumatology [address] [place] [address] Gloria Smith MD [address] [place] [phone] High risk medication use Social History [...] (Late Contact Info) Description 06/03/2024 1:00 PM EXHIBITIONS CURATOR Appointment [facility] - Rheumatology [address] [place] [address] 06/03/2024 2:00 PM EXHIBITIONS CURATOR Office Visit [facility] - Rheumatology [address] [place] [address] Gloria Smith MD [address] [...] of this report has been sent to [facility] Resulting Agency Comment Lab Testing performed at: [facility] [place] [address] ??[facility] [id number] Gloria Smith MD LAB - CHEMISTRY MARII ARAUJO [facility] INSURANCE BILL [address] [place] [address] * (ABNORMAL) CBC WITH DIFFERENTIAL (07/27/2022 2:53 [...] Agency Comment Lab Testing performed at: [facility] [place] [address] [facility] ??[facility] [id number] Gloria Smith MD LAB - HEMATOLOGY ORD ERABLES [facility] INSURANCE BILL [address] [place] [address] documented in this encounter Visit Diagnoses Diagnosis High risk medication use Encounter for long-term (current) use of other medications documented in this encounter Care Teams Rivet Tapping Machine Operator Relationship Specialty Start Date End Date Tomas Hyman MD [address] [place] [address] PCP - General Family Medicine 09/05/18 Isidro Heredia MD Rheumatology 02/09/11 documented as of this encounter
--- OUTSIDE RECORDS SUMMARY | 2024-05-10 10:18 | XMS_ITS | Encounter Summary ---
Author Organization [facility] Address [address] [facility] [place] [address] Care Team Providers Care Service Developer Name Role Phone Isidro Heredia MD Unavailable [phone] Tomas Hyman MD Primary Care Provider [phone] Reason for Visit * Reason Comments Follow-up Encounter Details Date Type Department Care Team (Late st Contact Info) Description 02/08/2021 2:40 PM CDT Office Visit [facility] - Rheumatology [address] [place] [address] Gloria Smith MD [address] [place] [phone] Rheumatoid arthritis of multiple sites with [...] bone density scan - took alendronate from [id number]. The total time spent today was 40 minutes performing chart prep, review of data and visit with the patient. documented in this encounter Plan of Treatment Upcoming Encounters Date Type Department Care Team (Late st Contact Info) Description 06/03/2024 1:00 PM SILO TENDER Appointment [facility] - Rheumatology [address] [place] [address] 06/03/2024 2:00 PM SILO TENDER Office Visit [facility] - Rheumatology [address] [place] [address] Gloria Smith MD [address] [place] [phone] Scheduled Orders Name Type Priority Associated [...] PM CDT) Advance Beneficiary Notice Option 3 [facility] INSURANCE BILL Comment: One or more tests [...] Resulting Agency Comment Lab Testing performed at: [facility] [place] [address] [facility] ??[facility] [phone] Gloria Smith MD LAB - CHEMISTRY MARII ARAUJO [facility] INSURANCE BILL [address] [place] [address] * C-REACTIVE PROTEIN (02/08/2021 4:45 PM CDT) C-Reactive Protein <1 0 - 10 mg/L [facility] INSURANCE BILL Blood BLOOD SPECIMEN / Unknown 02/08/2021 4:45 PM CDT 02/08/2021 Narrative Resulting Agency Comment Lab Testing performed at: [facility] [place] [address] ??[facility] [id number] Gloria Smith MD LAB - CHEMISTRY ORDE RABLES Performing Organization Address City/[facility]/ZIP Co de Phone Number [facility] INSURANCE BILL [address] [place] [address] * ERYTHROCYTE SEDIMENTATION RATE (02/08/2021 4:45 PM CDT) Erythrocyte Sedimentation Rate Westergren 5 0 - 30 mm/hr [facility] INSURANCE BILL Blood BLOOD SPECIMEN / Unknown 02/08/2021 4:45 PM CDT 02/08/2021 Narrative Resulting Agency Comment Lab Testing performed at: [facility] [place] [address] ??[facility] [id number] Gloria Smith MD LAB - HEMATOLOGY ORD ERABLES Performing Organization Address City/[facility]/ZIP Co de Phone Number [facility] INSURANCE BILL [address] [place] [address] * (ABNORMAL) COMPREHENSIVE METABOLIC PANEL (02/08/2021 4:45 [...] Resulting Agency Comment Lab Testing performed at: [facility] ??[facility] [id number] Gloria Smith MD LAB - CHEMISTRY MARII ARAUJO [facility] INSURANCE BILL [address] [place] [address] * (ABNORMAL) CBC WITH DIFFERENTIAL (02/08/2021 4:45 [...] Resulting Agency Comment Lab Testing performed at: [facility] [address] ??[facility] [id number] Gloria Smith MD LAB - HEMATOLOGY ORD ERABLES [facility] INSURANCE BILL [address] [place] [address] * (ABNORMAL) VITAMIN B12 (02/08/2021 4:45 PM CDT) Vitamin B12 1,257(H) 232 - 1,245 pg/mL [facility] INSURANCE BILL Blood BLOOD SPECIMEN / Unknown 02/08/2021 4:45 PM CDT 02/08/2021 Narrative Resulting Agency Comment Lab Testing performed at: [facility] [address] ??[facility] [id number] Gloria Smith MD LAB - CHEMISTRY MARII ARAUJO [facility] INSURANCE BILL [address] [place] [address] documented in this encounter Visit Diagnoses Diagnosis Rheumatoid arthritis of multiple sites with negative rheumatoid factor (HCC)- Primary Fatigue, unspecified type documented in this encounter Care Teams Service Developer Relationship Specialty Start Date End Date Tomas Hyman MD [address] [place] [address] PCP - General Family Medicine 09/05/18 Isidro Heredia MD Rheumatology 02/09/11 documented as of this encounter
--- OUTSIDE RECORDS SUMMARY | 2024-05-10 10:18 | XMS_ITS | Encounter Summary ---
Author Organization [facility] Address [address] [address] Care Team Providers Care Salon Professional Name Role Phone Isidro Herdeia MD Unavailable [phone] Tomas Hyman MD Primary Care Provider Encounter [...] COVID-19? No / Unsure 06/03/2021 12:36 PM MERCHANT MARINER documented as of this encounter Plan of Treatment Upcoming Encounters Date Type Department Care Team (Late st Contact Info) Description 06/03/2024 1:00 PM MERCHANT MARINER Appointment [facility] - Rheumatology [address] [place] [address] 06/03/2024 2:00 PM MERCHANT MARINER Office Visit [facility] - Rheumatology [address] [place] [address] Gloria Smith MD [address] [place] [phone] documented as of this encounter Visit Diagnoses Not on filedocumented in this encounter Care Teams Salon Professional Relationship Specialty Start Date End Date Tomas Hyman MD [address] [place] [address] PCP - General Family Medicine 09/05/18 Isidro Heredia MD Rheumatology 02/09/11 documented as of this encounter
--- OUTSIDE RECORDS SUMMARY | 2024-05-10 10:18 | XMS_ITS | Encounter Summary ---
Author Organization [facility] Address [address] [facility] [place] [address] Care Team Providers Care Fruit Harvest Machine Operator Name Role Phone Isidro Heredia MD Unavailable [phone] Tomas Hyman MD Primary Care Provider [phone] Reason for Visit * Reason Onset Date Comments Results 07/28/2021 Encounter Details Date Type Department Care Team (Late st Contact Info) Description 07/28/2021 Telephone [facility] - Family Medicine [address] [place] [address] Gloria Smith MD [address] [place] [phone] Results Social History Tobacco Use Types [...] Contact Info) Description 06/03/2024 1:00 PM HAND CROCHETER Appointment [facility] - Rheumatology [address] [place] [address] 06/03/2024 2:00 PM HAND CROCHETER Office Visit [facility] - Rheumatology [address] [place] [address] Gloria Smith MD [address] [place] [phone] documented as of this encounter Visit Diagnoses Not on filedocumented in this encounter Care Teams Fruit Harvest Machine Operator Relationship Specialty Start Date End Date Tomas Hyman MD [address] [facility] [address] [place] [address] PCP - General Family Medicine 09/05/18 Isidro Heredia MD Rheumatology 02/09/11 documented as of this encounter
--- OUTSIDE RECORDS SUMMARY | 2024-05-10 10:18 | XMS_ITS | Encounter Summary ---
Author Organization [facility] Address [address] [facility] [place] [address] Care Team Providers Care Pole Lift Operator Name Role Phone Isidro Heredia MD Unavailable [phone] Tomas Hyman MD Primary Care Provider [phone] Reason for Visit * Reason Onset Date Comments Medication Prior Auth Request 06/03/2021 Encounter Details Date Type Department Care Team (Late st Contact Info) Description 06/03/[address] [facility] - Rheumatology [address] [place] [address] Gloria Dillon MD [address] [place] [phone] Medication Prior Auth Request Social History [...] COVID-19? No / Unsure 06/03/2021 12:36 PM GAMBLING SUPERVISOR documented as of this encounter Miscellaneous Notes * Telephone Encounter - Carey Loza - 06/16/2021 12:06 PM CST Left message for patient to call LING SUPERVISOR * Addendum Note - Gloria Dillon MD - 06/10/2021 10:45 AM CSTAddended by: GLORIA DILLON on: 06/10/2021 10:45 AM Modules accepted: Orders LING SUPERVISOR * Telephone Encounter - Gloria Dillon MD - 06/10/2021 10:45 AM CST Please explain to him. LING SUPERVISOR * Telephone Encounter - Denisa Mirza - [...] Approved through [place] already on File from 07/04/[id number] Submitted via: Insurance: [facility] Case Number: not avialable Helpdesk: [phone] LING SUPERVISOR * Telephone Encounter - Gloria Dillon MD - 06/03/2021 1:12 PM CST Request humira 40mg every 14 weeks. 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 LING SUPERVISOR documented in this encounter Plan of Treatment Upcoming Encounters Date Type Department Care Team (Late st Contact Info) Description 06/03/2024 1:00 PM GAMBLING SUPERVISOR Appointment [facility] - Rheumatology [address] [place] [phone] 06/03/2024 2:00 PM GAMBLING SUPERVISOR Office Visit [facility] - Rheumatology [address] [place] [address] Gloria Dillon MD [address] [place] [phone] documented as of this encounter Visit Diagnoses Not on filedocumented in this encounter Care Teams Pole Lift Operator Relationship Specialty Start Date End Date Tomas Hyman MD [address] [place] [address] PCP - General Family Medicine 09/05/18 Isidro Heredia MD Rheumatology 02/09/11 documented as of this encounter
--- OUTSIDE RECORDS SUMMARY | 2024-05-10 10:18 | XMS_ITS | Encounter Summary ---
Author Organization [facility] Address [address] [place] [address] Care Team Providers Care Risk Officer Name Role Phone Isidro Heredia MD Unavailable [phone] Tomas Hyman MD Primary Care Provider [phone] Encounter Details Date Type Department Care Team [...] COVID-19? No / Unsure 04/05/2021 1:49 PM GLAZE SUPERVISOR documented as of this encounter Plan of Treatment Upcoming Encounters Date Type Department Care Team (Late st Contact Info) Description 06/03/2024 1:00 PM GLAZE SUPERVISOR Appointment [facility] - Rheumatology [address] [place] [address] 06/03/2024 2:00 PM GLAZE SUPERVISOR Office Visit [facility] - Rheumatology [address] [place] [address] Gloria Smith MD [address] [place] [phone] documented as of this encounter Visit Diagnoses Not on filedocumented in this encounter Care Teams Risk Officer Relationship Specialty Start Date End Date Tomas Hyman MD [address] [facility] [address] [place] [address] PCP - General Family Medicine 09/05/18 Isidro Heredia MD Rheumatology 02/09/11 documented as of this encounter
--- OUTSIDE RECORDS SUMMARY | 2024-05-10 10:18 | XMS_ITS | Encounter Summary ---
Author Organization [facility] Address [address] [facility] [place] [address] Care Team Providers Care Agricultural Purchasing Agent Name Role Phone Isidro Heredia MD Unavailable [phone] Tomas Hyman MD Primary Care Provider [phone] Reason for Visit * Reason Comments Follow-up Encounter Details Date Type Department Care Team (Late st Contact Info) Description 02/10/2022 8:40 AM CDT Office Visit [facility] - Rheumatology [address] [place] [address] Gloria Smith MD [address] [place] [phone] Rheumatoid arthritis of multiple sites with [...] History: Diagnosis Date ??? RA (rheumatoid arthritis) ([facility]) Past Surgical History: Procedure Laterality Date ??? [...] bone density scan - took alendronate from [id number]. The total time spent today was 40 minutes performing chart prep, review of data and visit with the patient. documented in this encounter Plan of Treatment Upcoming Encounters Date Type Department Care Team (Late st Contact Info) Description 06/03/2024 1:00 PM YEAST MAKER Appointment [facility] - Rheumatology [address] [place] [address] 06/03/2024 2:00 PM YEAST MAKER Office Visit [facility] - Rheumatology [address] [place] [address] Gloria Smith MD [address] [place] [phone] documented as of this encounter Procedures Procedure [...] Resulting Agency Comment Lab Testing performed at: [facility] [address] [address] ?? [place] [id number] Gloria Smith MD LAB - CHEMISTRY MARII ARAUJO [facility] INSURANCE BILL [address] [place] [address] * VITAMIN D 25-HYDROXY (02/10/2022 9:46 AM CDT) Vitamin D, 25 Hydroxy 52.1 30 - 100 ng/mL [facility] INSURANCE BILL Comment: Vitamin D Status: ?Deficiency ? <20 ? ng/mL ?Insufficiency ?? 20-30 ??ng/mL ?Sufficiency ? 30-100 ng/mL ?Toxicity ? >100 ?ng/mL Blood BLOOD SPECIMEN / Unknown 02/10/2022 9:46 AM CDT 02/10/2022 Narrative Resulting Agency Comment Lab Testing performed at: [facility] [address] [address] ?? [place] [id number] Gloria Smith MD LAB - CHEMISTRY MARII ARAUJO Performing Organization Address City/[facility]/ZIP Co de Phone Number [facility] INSURANCE BILL [address] [place] [address] * QUANTIFERON TB-GOLD (02/10/2022 9:44 AM CDT) [...] Resulting Agency Comment Lab Testing performed at: [facility] [address] [facility] ??[facility] [phone] Gloria Smith MD LAB - CHEMISTRY MARII ARAUJO Performing Organization Address City/[facility]/ZIP Co de Phone Number [facility] INSURANCE BILL [address] [place] [address] documented in this encounter Visit Diagnoses Diagnosis Rheumatoid arthritis of multiple sites with negative rheumatoid factor (HCC)- Primary Vitamin D deficiency Fatigue, unspecified type documented in this encounter Care Teams Agricultural Purchasing Agent Relationship Specialty Start Date End Date Tomas Hyman MD [address] [facility] [address] [place] [address] PCP - General Family Medicine 09/05/18 Isidro Heredia MD Rheumatology 02/09/11 documented as of this encounter
--- OUTSIDE RECORDS SUMMARY | 2024-05-10 10:18 | XMS_ITS | Encounter Summary ---
Author Organization [facility] Address [address] [facility] [place] [address] Care Team Providers Care Catalyst Manufacturing Operator Name Role Phone Isidro Heredia MD Unavailable [phone] Tomas Hyman MD Primary Care Provider Encounter Details Date Type Department Care Team (Latest Contact Info) Description 03/03/2022 12:00 PM CDT - 03/03/2022 12:04 PM CDT Hospital Encounter [facility] [address] [place], [place] [phone] [place] [address] [facility] [address] [place] [address] Discharge Disposition: Home or Self [...] 1 (one) tablet by mouth at bedtime bihmteplueg-ksxc-ua lysorb, PF, 0.5-1-0.5 % SOLN Instill 1 [...] of this encounter H&P Notes * Aldo Cadlwell MD - 03/03/2022 12:55 PM CDT Images from the original note were not included. Chief Complaint(s): L5/S1 KIMBERLEY Right , severe, persistent and uncontrolled and worsening lower back and LE pain HPI: Depression Screening Thoughts that you would be better off or of hurting yourself in some way: Not at all , Total Score: 0 label= PHQ-9 propId= [id number] catId= [id number] encId= [id number] PHQ-9 Thoughts that you would be better [...] complaining of value= options= propid= 91 itemid= [id number] categoryid= [id number] encounterid= [id number] Patient complaining of severe pain,depressed mood related [...] changes and grimacing label= GENERAL APPEARANCE: categoryPropId= [id number] examid= [id number] GENERAL APPEARANCE: alert, oriented x 3, appears to be in pain based on postural changes and grimacing. NC/AT, Symmetrical. label= HEAD: categoryPropId= [id number] examid= [id number] HEAD: NC/AT, Symmetrical.. Hearing intact. label= EARS: categoryPropId= [id number] examid= [id number] EARS: Hearing intact. . Normal work of breathing label= RESPIRATORY: categoryPropId= [id number] examid= [id number] RESPIRATORY: Normal work of breathing. regular rate label= HEART: categoryPropId= [id number] examid= [id number] HEART: regular rate. no edema, no clubbing, no cyanosis label= EXTREMITIES: categoryPropId= [id number] examid= [id number] EXTREMITIES: no edema, no clubbing, no cyanosis. no rash or ulcers label= SKIN: categoryPropId= [id number] examid= [id number] SKIN: no rash or ulcers. Tone normal label= MUSCULOSKELETAL: categoryPropId= [id number] examid= [id number] MUSCULOSKELETAL: Tone normal. See below label= NEUROLOGIC: categoryPropId= [id number] examid= [id number] NEUROLOGIC: See below. CERVICAL SPINE EXAM: -Positive [...] UE prox and distal and symm - scrap metal burner 4-5/5 Left UE and symm - scrap metal burner 4-5/5 Right UE and symm - sensory [...] on how to reach the clinic or biofuels plant operations engineer physician at anytime for questions or complaints. documented in this encounter Plan of Treatment Upcoming Encounters Date Type Department Care Team (Late st Contact Info) Description 06/03/2024 1:00 PM SLAB INSTALLER Appointment [facility] - Rheumatology [address] [place] [address] [phone] 06/03/2024 2:00 PM SLAB INSTALLER Office Visit [facility] - Rheumatology [address] [place] [address] [phone] Gloria Smith MD [address] [place] [phone] documented as of this encounter Visit Diagnoses Not on filedocumented in this encounter Care Teams Catalyst Manufacturing Operator Relationship Specialty Start Date End Date Tomas Hyman MD [address] [facility] [address] [place] [address] PCP - General Family Medicine 09/05/18 Isidro Heredia MD Rheumatology 02/09/11 documented as of this encounter
--- OUTSIDE RECORDS SUMMARY | 2024-05-10 10:18 | XMS_ITS | Encounter Summary ---
Author Organization [facility] Address [address] [place] [address] Care Team Providers Care Watchmaking Teacher Name Role Phone Isidro Heredia MD Unavailable Tomas Hyman MD Primary Care Provider [phone] Reason for Visit * Reason Onset Date Comments MEDICATION REFILL 04/13/2021 Encounter Details Date Type Department Care Team (Late st Contact Info) Description 04/13/2021 Refill [facility] Medical [facility] - Rheumatology [address] [place] [address] Gloria Smith MD [address] [place] [address] MEDICATION REFILL Social History Tobacco Use [...] COVID-19? No / Unsure 04/05/2021 1:49 PM UTILITY MECHANIC SUPERVISOR documented as of this encounter Miscellaneous Notes * Telephone Encounter - Arian Fernando RN - 04/14/2021 9:00 AM CST Okay per Dr. Smith to renew all of the below medications. ITY MECHANIC SUPERVISOR * Telephone Encounter - Arian Fernando RN [...] 1410 02/06/20 1332 CRP <1 <0.20 0.21 ITY MECHANIC SUPERVISOR * Telephone Encounter - Manuela Mirza - 04/13/2021 8:52 AM CST Last refill-01/18/2021 and02/08/2021 Last OV-02/08/2021 Next OV-06/03/2021 ITY MECHANIC SUPERVISOR documented in this encounter Plan of Treatment Upcoming Encounters Date Type Department Care Team (Late st Contact Info) Description 06/03/2024 1:00 PM UTILITY MECHANIC SUPERVISOR Appointment [facility] - Rheumatology [address] [place] [address] 06/03/2024 2:00 PM UTILITY MECHANIC SUPERVISOR Office Visit [facility] - Rheumatology [address] [place] [address] Gloria Smith MD [address] [place] [phone] documented as of this encounter Visit Diagnoses Diagnosis Rheumatoid arthritis of multiple sites with negative rheumatoid factor (HCC) documented in this encounter Care Teams Watchmaking Teacher Relationship Specialty Start Date End Date Tomas Hyman MD [address] [facility] [address] [place] [address] PCP - General Family Medicine 09/05/18 Isidro Heredia MD Rheumatology 02/09/11 documented as of this encounter
--- OUTSIDE RECORDS SUMMARY | 2024-05-10 10:18 | XMS_ITS | Encounter Summary ---
Author Organization [facility] Address [address] [facility] [place] [address] Care Team Providers Care Postal Service Mail Processor Name Role Phone Isidro Heredia MD Unavailable [phone] Tomas Hyman MD Primary Care Provider [phone] Reason for Visit * Treatment (Routine) - Closed Specialty Diagnoses / Procedures Referred By Lawrence shah Referred To Contact Infusion Therapy Nurse Diagnoses Rheumatoid arthritis without rheumatoid factor, multiple sites (HCC) Procedures [place] GOLIMUMAB FOR IV USE 1MG Gloria Smith MD [address] [place] [address] [address] Referral ID Status Reason Start Date Expiration Date Visits Re quested Visits Authorized [id number] Closed 10/19/2020 04/29/2021 1 8 Encounter Details Date Type Department Care Team (Late st Contact Info) Description 04/05/2021 12:49 PM CLAIM EXAMINER - 04/05/2021 11:59 PM CLAIM EXAMINER Hospital Encounter [facility] Medical [facility] - Rheumatology [address] [place] [address] Gloria Smith MD [address] [place] [address] Discharge Disposition: Home or Self [...] COVID-19? No / Unsure 04/05/2021 1:49 PM CLAIM EXAMINER documented as of this encounter Last Filed Vital Signs Vital Sign Reading Time Taken Comments Blood Pressure 132/74 04/05/2021 1:07 PM CLAIM EXAMINER Pulse 61 04/05/2021 1:07 PM CLAIM EXAMINER Temperature 36.8 ??C (98.3 ??F) 04/05/2021 1:07 PM CS T Respiratory Rate 18 04/05/2021 1:07 PM CLAIM EXAMINER Oxygen Saturation - - Inhaled Oxygen Concentration - - Weight 97 kg (213 lb 12.8 oz) 04/05/2021 1:07 PM CLAIM EXAMINER Height - - Body Mass Index 30.68 02/08/2021 2:29 PM CDT documented in this encounter Discharge Instructions * Discharge Instructions* Jody Sahu RN - 04/05/2021 1:43 PM CLAIM EXAMINER [place] Rheumatology Post Infusion instructions You have [...] through Sunday 9-5 call the office at [phone] After hours or on the weekend call the exchange at [phone] If you have had lab work done [...] Hospital as your provider. Jody Sahu RN M EXAMINER documented in this encounter Medications at Time of Discharge Medication Sig Dispensed Refills Start Date End Date atorvastatin (LIPITOR) 40 MG tablet Take 1 (one) tablet by mouth at bedtime babtxehxwtj-vrkh-ad lysorb, PF, 0.5-1-0.5 % SOLN Instill 1 [...] - 04/05/2021 1:44 PM CST JOSE Deng [id number] 04/05/2021 Diagnosis: Rheumatoid arthritis without rheumatoid factor, [...] Next treatment? 8 weeks Jody Sahu RN M EXAMINER documented in this encounter Plan of Treatment Upcoming Encounters Date Type Department Care Team (Late st Contact Info) Description 06/03/2024 1:00 PM CLAIM EXAMINER Appointment [facility] - Rheumatology [address] [place] [phone] 06/03/2024 2:00 PM CLAIM EXAMINER Office Visit [facility] - Rheumatology [address] [place] [address] Gloria Smith MD [address] [place] [phone] documented as of this encounter Visit Diagnoses [...] filter. $ New Bag/Syringe 04/05/2021 1:21 PM CLAIM EXAMINER 200 mg 200 mL/hr documented in this encounter Care Teams Postal Service Mail Processor Relationship Specialty Start Date End Date Tomas Hyman MD [address] [address] [address] [place] [address] PCP - General Family Medicine 09/05/18 Isidro Heredia MD Rheumatology 02/09/11 documented as of this encounter
--- OUTSIDE RECORDS SUMMARY | 2024-05-10 10:18 | XMS_ITS | Encounter Summary ---
Author Organization [facility] Address [address] [place] [place] [address] Care Team Providers Care Social Insurance Administrator Name Role Phone Isidro Heredia MD Unavailable [phone] Tomas Hyman MD Primary Care Provider [phone] Encounter Details Date Type Department Care Team [...] st Contact Info) Description 06/03/2024 1:00 PM EYEGLASS CUTTER Appointment [facility] - Rheumatology [address] [place] [address] 06/03/2024 2:00 PM EYEGLASS CUTTER Office Visit [facility] - Rheumatology [address] [place] [address] Gloria Smith MD [address] [place] [phone] documented as of this encounter Visit Diagnoses Not on filedocumented in this encounter Care Teams Social Insurance Administrator Relationship Specialty Start Date End Date Tomas Hyman MD [address] [facility] [address] [place] [address] PCP - General Family Medicine 09/05/18 Isidro Heredia MD Rheumatology 02/09/11 documented as of this encounter
--- OUTSIDE RECORDS SUMMARY | 2024-05-10 10:18 | XMS_ITS | Encounter Summary ---
Author Organization [facility] Address [address] [place] [address] Care Team Providers Care Lumber Handler Name Role Phone Isidro Heredia MD Unavailable [phone] Tomas Hyman MD Primary Care Provider [phone] Reason for Visit * Treatment (Routine) - Closed Specialty Diagnoses / Procedures Referred By Lawrence shah Referred To Contact Infusion Therapy Nurse Diagnoses Rheumatoid arthritis without rheumatoid factor, multiple sites (HCC) Procedures [place] GOLIMUMAB FOR IV USE 1MG Gloria Smith MD [address] [place] [address] [address] Referral ID Status Reason Start Date Expiration Date Visits Re quested Visits Authorized [id number] Closed 05/12/2021 04/29/2022 1 6 Encounter Details Date Type Department Care Team (Late st Contact Info) Description 06/03/2021 11:51 AM RESEARCH ENGINEER - 06/03/2021 11:59 PM RESEARCH ENGINEER Hospital Encounter [facility] Medical [facility] - Rheumatology [address] [place] [address] Gloria Smith MD [address] [place] [address] Discharge Disposition: Home or Self [...] COVID-19? No / Unsure 06/03/2021 12:36 PM RESEARCH ENGINEER documented as of this encounter Last Filed Vital Signs Vital Sign Reading Time Taken Comments Blood Pressure 135/78 06/03/2021 12:16 PM RESEARCH ENGINEER Pulse 106 06/03/2021 12:16 PM RESEARCH ENGINEER Temperature 36.4 ??C (97.6 ??F) 06/03/2021 12:[address] Respiratory Rate 18 06/03/2021 12:16 PM RESEARCH ENGINEER Oxygen Saturation - - Inhaled Oxygen Concentration - - Weight 95.7 kg (211 lb) 06/03/2021 12:16 PM RESEARCH ENGINEER Height - - Body Mass Index 30.28 02/08/2021 2:29 PM CDT documented in this encounter Discharge Instructions * Discharge Instructions* Jody Sahu RN - 06/03/2021 12:23 PM RESEARCH ENGINEER [place] Rheumatology Post Infusion instructions You have [...] through Sunday 9-5 call the office at [phone] After hours or on the weekend call the exchange at [phone] If you have had lab work done [...] Hospital as your provider. Jody Sahu RN ARCH ENGINEER documented in this encounter Medications at Time of Discharge Medication Sig Dispensed Refills Start Date End Date atorvastatin (LIPITOR) 40 MG tablet Take 1 (one) tablet by mouth at bedtime ymmnzbwkrig-fggl-em lysorb, PF, 0.5-1-0.5 % SOLN Instill 1 [...] - 06/03/2021 12:33 PM CST JOSE Deng [id number] 06/03/2021 Diagnosis: Rheumatoid arthritis without rheumatoid factor, [...] Next treatment? 8 weeks Jody Sahu RN ARCH ENGINEER documented in this encounter Plan of Treatment Upcoming Encounters Date Type Department Care Team (Late st Contact Info) Description 06/03/2024 1:00 PM RESEARCH ENGINEER Appointment [facility] - Rheumatology [address] [place] [phone] 06/03/2024 2:00 PM RESEARCH ENGINEER Office Visit [facility] - Rheumatology [address] [place] [address] Gloria Smith MD [address] [place] [phone] documented as of this encounter Visit Diagnoses [...] filter. $ New Bag/Syringe 06/03/2021 12:29 PM RESEARCH ENGINEER 200 mg 200 mL/hr documented in this encounter Care Teams Lumber Handler Relationship Specialty Start Date End Date Tomas Hyman MD [address] [place] [address] PCP - General Family Medicine 09/05/18 Isidro Heredia MD Rheumatology 02/09/11 documented as of this encounter
--- OUTSIDE RECORDS SUMMARY | 2024-05-10 10:18 | XMS_ITS | Encounter Summary ---
Author Organization [facility] Address [address] [facility] [place] [address] Care Team Providers Care Magneto Repairer Name Role Phone Isidro Heredia MD Unavailable [phone] Tomas Hyman MD Primary Care Provider [phone] Reason for Visit * Treatment (Routine) - Closed Specialty Diagnoses / Procedures Referred By Lawrence shah Referred To Contact Infusion Therapy Nurse Diagnoses Rheumatoid arthritis without rheumatoid factor, multiple sites (HCC) Procedures [place] GOLIMUMAB FOR IV USE 1MG Gloria Smith MD [address] [place] [address] [address] Referral ID Status Reason Start Date Expiration Date Visits Re quested Visits Authorized [id number] Closed 10/19/2020 04/29/2021 1 8 Encounter Details Date Type Department Care Team (Late st Contact Info) Description 12/14/2020 1:00 PM CDT - 12/14/2020 11:59 PM CDT Hospital Encounter [facility] Medical [facility] - Rheumatology [address] [place] [address] Gloria Smith MD [address] [place] [address] Discharge Disposition: Home or Self [...] Sahu RN - 12/14/2020 1:42 PM CDT [place] Rheumatology Post Infusion instructions You have [...] through Sunday 9-5 call the office at [phone] After hours or on the weekend call the exchange at [phone] If you have had lab work done [...] 1 (one) tablet by mouth at bedtime nojqatfggea-bots-dbl ysorb, PF, 0.5-1-0.5 % SOLN Instill 1 [...] - 12/14/2020 1:38 PM CDT JOSE Deng [id number] 12/14/2020 Diagnosis: Rheumatoid arthritis without rheumatoid factor, [...] st Contact Info) Description 06/03/2024 1:00 PM TRAIN CLERK Appointment [facility] - Rheumatology [address] [place] [address] [phone] 06/03/2024 2:00 PM TRAIN CLERK Office Visit [facility] - Rheumatology [address] [place] [address] Gloria Smith MD [address] [place] [phone] documented as of this encounter Visit [...] mL/hr documented in this encounter Care Teams Magneto Repairer Relationship Specialty Start Date End Date Tomas Hyman MD [address] [facility] [address] [place] [address] PCP - General Family Medicine 09/05/18 Isidro Heredia MD Rheumatology 02/09/11 documented as of this encounter
--- OUTSIDE RECORDS SUMMARY | 2024-05-10 10:18 | XMS_ITS | Encounter Summary ---
Author Organization [facility] Address [address] [facility] [place] [address] Care Team Providers Care Automation Technologist Name Role Phone Isidro Heredia MD Unavailable [phone] Tomas Hyman MD Primary Care Provider [phone] Encounter Details Date Type Department Care Team (Latest Contact Info) Description 03/03/2022 12:05 PM CDT - 03/03/2022 11:59 PM CDT Hospital Encounter [facility] Pain Care [address] [place], [place] [phone] [place] [address] [facility] [address] [place] [address] Discharge Disposition: Home or Self [...] León RN - 03/03/2022 12:15 PM CDT [facility] Procedure Center Pain Discharge Instructions [...] headache, or any other problems, please call [phone] or after hours callDr. Caldwell at [phone] and tell them your physician's name. The exchange will alert the physician internal controls consultant. If sedation is given: No sedation [...] 1 (one) tablet by mouth at bedtime yqaykfwojnj-oold-mr lysorb, PF, 0.5-1-0.5 % SOLN Instill 1 [...] st Contact Info) Description 06/03/2024 1:00 PM ACCOUNTING METHODS ANALYST Appointment [facility] - Rheumatology [address] [place] [address] [phone] 06/03/2024 2:00 PM ACCOUNTING METHODS ANALYST Office Visit [facility] - Rheumatology [address] [place] [address] [phone] Gloria Smith MD [address] [place] [phone] Pending Results Name Type Priority Associated Diagnoses [...] mg documented in this encounter Care Teams Automation Technologist Relationship Specialty Start Date End Date Tomas Hyman MD [address] [facility] [address] [place] [address] PCP - General Family Medicine 09/05/18 Isidro Heredia MD Rheumatology 02/09/11 documented as of this encounter
--- OUTSIDE RECORDS SUMMARY | 2024-05-10 10:18 | XMS_ITS | Encounter Summary ---
Author Organization [facility] Address [address] [facility] [place] [address] Care Team Providers Care Syrup Blender Name Role Phone Isidro Heredia MD Unavailable [phone] Tomas Hyman MD Primary Care Provider [phone] Reason for Visit * Reason Onset Date Comments MEDICATION REFILL 10/29/2020 Encounter Details Date Type Department Care Team (Late st Contact Info) Description 10/29/2020 Refill [facility] - Rheumatology [address] [place] [address] Gloria Smith MD [address] [place] [phone] MEDICATION REFILL Social History Tobacco Use [...] Contact Info) Description 06/03/2024 1:00 PM CLINICAL ACCOUNT EXECUTIVE Appointment [facility] - Rheumatology [address] [place] [address] 06/03/2024 2:00 PM CLINICAL ACCOUNT EXECUTIVE Office Visit [facility] - Rheumatology [address] [place] [address] Gloria Smith MD [address] [place] [phone] documented as of this encounter Visit Diagnoses Not on filedocumented in this encounter Care Teams Syrup Blender Relationship Specialty Start Date End Date Tomas Hyman MD [address] [place] [address] PCP - General Family Medicine 09/05/18 Isidro Heredia MD Rheumatology 02/09/11 documented as of this encounter
--- OUTSIDE RECORDS SUMMARY | 2024-05-10 10:18 | XMS_ITS | Encounter Summary ---
Author Organization [facility] Address [address] [facility] [place] [address] Care Team Providers Care Electronic Tester Name Role Phone Isidro Heredia MD Unavailable [phone] Tomas Hyman MD Primary Care Provider [phone] Reason for Visit * Treatment (Routine) - Closed Specialty Diagnoses / Procedures Referred By Lawrence shah Referred To Contact Infusion Therapy Nurse Diagnoses Rheumatoid arthritis without rheumatoid factor, multiple sites (HCC) Procedures [place] GOLIMUMAB FOR IV USE 1MG Gloria Smith MD [address] [place] [address] [address] Referral ID Status Reason Start Date Expiration Date Visits Re quested Visits Authorized [id number] Closed 10/19/2020 04/29/2021 1 8 Encounter Details Date Type Department Care Team (Late st Contact Info) Description 11/16/2020 11:50 AM CDT - 11/16/2020 11:59 PM CDT Hospital Encounter [facility] Medical [facility] - Rheumatology [address] [place] [address] Gloria Smith MD [address] [place] [address] Discharge Disposition: Home or Self [...] Sahu RN - 11/16/2020 12:31 PM CDT [place] Rheumatology Post Infusion instructions [...] through Sunday 9-5 call the office at [phone] After hours or on the weekend call the exchange at [phone] If you have had lab work done [...] 1 (one) tablet by mouth at bedtime eoiixybffzr-dqjr-puy ysorb, PF, 0.5-1-0.5 % SOLN Instill 1 [...] - 11/16/2020 12:14 PM CDT JOSE Deng [id number] 11/16/2020 Diagnosis: Rheumatoid arthritis without rheumatoid factor, multiple sites [M06.09]. Pt denies symptoms of infection or antibiotic use, no open wounds, or recent surgery, or plans for surgery in the next couple of weeks. Pt is aware that we use the 0-10 pain scale to assess discomfort. 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 motel front desk clerk pt signs consent for [...] st Contact Info) Description 06/03/2024 1:00 PM LANDCARE OFFICER Appointment [facility] - Rheumatology [address] [place] [place] [address] 06/03/2024 2:00 PM LANDCARE OFFICER Office Visit [facility] - Rheumatology [address] [place] [address] Gloria Smith MD [address] [place] [phone] documented as of this encounter Visit [...] mL/hr documented in this encounter Care Teams Electronic Tester Relationship Specialty Start Date End Date Tomas Hyman MD [address] [address] [address] [place] [address] PCP - General Family Medicine 09/05/18 Isidro Heredia MD Rheumatology 02/09/11 documented as of this encounter
--- OUTSIDE RECORDS SUMMARY | 2024-05-10 10:18 | XMS_ITS | Encounter Summary ---
Author Organization [facility] Address [address] [facility] [place] [address] Care Team Providers Care Doll Wig Maker Rooted Hair Name Role Phone Isidro Heredia MD Unavailable [phone] Tomas Hyman MD Primary Care Provider [phone] Reason for Visit * Reason Onset Date Comments MEDICATION REFILL 01/17/2021 Encounter Details Date Type Department Care Team (Late st Contact Info) Description 01/17/2021 Refill [facility] Medical [facility] - Rheumatology [address] [place] [address] Gloria Smith MD [address] [place] [phone] MEDICATION REFILL Social History Tobacco Use [...] Contact Info) Description 06/03/2024 1:00 PM RESEARCH INTERVIEWER Appointment [facility] - Rheumatology [address] [place] [address] 06/03/2024 2:00 PM RESEARCH INTERVIEWER Office Visit [facility] - Rheumatology [address] [place] [address] Gloria Smith MD [address] [place] [phone] documented as of this encounter Visit Diagnoses Diagnosis Rheumatoid arthritis of multiple sites with negative rheumatoid factor (HCC) documented in this encounter Care Teams Doll Wig Maker Rooted Hair Relationship Specialty Start Date End Date Tomas Hyman MD [address] [facility] [address] [place] [address] PCP - General Family Medicine 09/05/18 Iisdro Heredia MD Rheumatology 02/09/11 documented as of this encounter
--- OUTSIDE RECORDS SUMMARY | 2024-05-10 10:18 | XMS_ITS | Encounter Summary ---
Author Organization [facility] Address [address] [facility] [place] [address] Care Team Providers Care Field Research Associate Name Role Phone Isidro Heredia MD Unavailable Tomas Hyman MD Primary Care Provider [phone] Encounter Details Date Type Department Care Team [...] Coronavirus/COVID-19? No / Unsure 05/19/2022 10:58 AM MARBLE SETTER documented as of this encounter Plan of Treatment Upcoming Encounters Date Type Department Care Team (Late st Contact Info) Description 06/03/2024 1:00 PM MARBLE SETTER Appointment [facility] - Rheumatology [address] [place] [address] 06/03/2024 2:00 PM MARBLE SETTER Office Visit [facility] - Rheumatology [address] [place] [address] Gloria Smith MD [address] [place] [phone] documented as of this encounter Visit Diagnoses Not on filedocumented in this encounter Care Teams Field Research Associate Relationship Specialty Start Date End Date Tomas Hyman MD [address] [place] [address] PCP - General Family Medicine 09/05/18 Isidro Heredia MD Rheumatology 02/09/11 documented as of this encounter
--- OUTSIDE RECORDS SUMMARY | 2024-05-10 10:18 | XMS_ITS | Encounter Summary ---
Author Organization [facility] Address [address] [facility] [place] [address] Care Team Providers Care Ditcher Name Role Phone Isidro Heredia MD Unavailable [phone] Tomas Hyman MD Primary Care Provider [phone] Encounter Details Date Type Department Care Team (Late Contact Info) Description 11/11/2020 Orders Only [facility] - Rheumatology [address] [facility], [address] [place] [address] Gloria Smith MD [address] [place] [address] Social History Tobacco Use Types [...] (Late Contact Info) Description 06/03/2024 1:00 PM FORM SETTER HELPER Appointment [facility] - Rheumatology [address] [place] [address] 06/03/2024 2:00 PM FORM SETTER HELPER Office Visit [facility] - Rheumatology [address] [place] [address] Gloria Smith MD [address] [place] [address] documented as of this encounter Visit Diagnoses Not on filedocumented in this encounter Care Teams Ditcher Relationship Specialty Start Date End Date Tomas Hyman MD [address] [place] [address] PCP - General Family Medicine 09/05/18 Isidro Heredia MD Rheumatology 02/09/11 documented as of this encounter
--- OUTSIDE RECORDS SUMMARY | 2024-05-10 10:18 | XMS_ITS | Encounter Summary ---
Author Organization [facility] Address [address] [facility] [place] [address] Care Team Providers Care Sfdc Architect Name Role Phone Isidro Heredia MD Unavailable [phone] Tomas Hyman MD Primary Care Provider [phone] Reason for Visit * Reason Onset Date Comments MEDICATION REFILL 06/04/2022 Encounter Details Date Type Department Care Team (Late st Contact Info) Description 06/04/2022 Refill [facility] Medical [facility] - Rheumatology [address] [place] [address] Gloria Smith MD [address] [place] [address] MEDICATION REFILL Social History Tobacco Use [...] Coronavirus/COVID-19? No / Unsure 05/19/2022 10:58 AM PELLET POST INSPECTOR documented as of this encounter Miscellaneous Notes [...] 0.7 Recent Labs Component Name 02/10/22 0946 [id number] 52.1 No results for input(s): URICACID in the last 58160 hours. Last ESR: Recent Labs Component Name 02/08/21 1645 06/29/20 1410 02/06/20 1332 SEDRATE 5 13 12 Last 3 CRP: Recent Labs Component Name 02/08/21 1645 06/29/20 1410 02/06/20 1332 CRP <1 <0.20 0.21 ET POST INSPECTOR * Telephone Encounter - Mariya Nichole MA - 06/05/2022 10:26 AM PELLET POST INSPECTOR Patient chart, labs and allergies reviewed and [...] 0.7 Recent Labs Component Name 02/10/22 0946 [id number] 52.1 No results for input(s): URICACID in the last 79944 hours. Last ESR: Recent Labs Component Name 02/08/21 1645 06/29/20 1410 02/06/20 1332 SEDRATE 5 13 12 Last 3 CRP: Recent Labs Component Name 02/08/21 1645 06/29/20 1410 02/06/20 1332 CRP <1 <0.20 0.21 Last Eye exam (if refill for hydroxychloroquine): JINA 05/19/22 Last refill 11/14/21 predisone, 02/28/22 tizanidine, 03/01/22 gabapentin Upcoming visit: 09/05/22 ET POST INSPECTOR documented in this encounter Plan of Treatment Upcoming Encounters Date Type Department Care Team (Late st Contact Info) Description 06/03/2024 1:00 PM PELLET POST INSPECTOR Appointment [facility] - Rheumatology [address] [place] [id number] 06/03/2024 2:00 PM PELLET POST INSPECTOR Office Visit [facility] - Rheumatology [address] [place] [address] Gloria Smith MD [address] [place] [phone] documented as of this encounter Results [...] Agency Comment Lab Testing performed at: [facility] [place] [address] [facility] ??[facility] [phone] Gloria Smith MD LAB - CHEMISTRY MARII ARAUJO [facility] INSURANCE BILL [address] [place] [address] * (ABNORMAL) CBC WITH DIFFERENTIAL (07/27/2022 2:53 [...] Resulting Agency Comment Lab Testing performed at: [facility] [place] [address] [facility] ??[facility] [id number] Gloria Smith MD LAB - HEMATOLOGY ORD ERABLES [facility] INSURANCE BILL [address] [place] [address] documented in this encounter Visit Diagnoses Diagnosis [...] medications documented in this encounter Care Teams Sfdc Architect Relationship Specialty Start Date End Date Tomas Hyman MD [address] [facility] [address] [place] [address] PCP - General Family Medicine 09/05/18 Isidro Heredia MD Rheumatology 02/09/11 documented as of this encounter
--- OUTSIDE RECORDS SUMMARY | 2024-05-10 10:18 | XMS_ITS | Encounter Summary ---
Author Organization [facility] Address [address] [facility] [place] [address] Care Team Providers Care Boiler House Mechanic Name Role Phone Isidro Heredia MD Unavailable [phone] Tomas Hyman MD Primary Care Provider [phone] Reason for Visit * Reason Onset Date Comments Medication Prior Auth Request 02/08/2021 Encounter Details Date Type Department Care Team (Late st Contact Info) Description 02/08/2021 Telephone [facility] - Rheumatology [address] [place] [address] Gloria Dillon MD [address] [place] [phone] Medication Prior Auth Request Social History [...] COVID-19? No / Unsure 06/03/2021 12:36 PM ART THERAPY SPECIALIST documented as of this encounter Miscellaneous Notes * Addendum Note - Gloria Dillon MD - 06/09/2021 4:02 PM CSTAddended by: GLORIA DILLON on: 06/09/2021 04:02 PM Modules accepted: Orders THERAPY SPECIALIST * Telephone Encounter - DeniaCarey Darrion - 06/09/2021 9:05 AM CST I do not see a script was ever sent to his pharmacy. If you could please do that and then they willlet us know if a prior auth is needed and will follow from there. THERAPY SPECIALIST * Telephone Encounter - Gloria Dillon MD - 06/03/2021 1:24 PM CST Please follow up. THERAPY SPECIALIST * Telephone Encounter - Gloria Dillon MD - 02/08/2021 3:35 PM CDT Request for MTX pen (otrexup) 15mg every week. Dx: seronegative RA documented in this encounter Plan of Treatment Upcoming Encounters Date Type Department Care Team (Late st Contact Info) Description 06/03/2024 1:00 PM ART THERAPY SPECIALIST Appointment [facility] - Rheumatology [address] [place] [address] 06/03/2024 2:00 PM ART THERAPY SPECIALIST Office Visit [facility] - Rheumatology [address] [place] [address] Gloria Dillon MD [address] [place] [phone] documented as of this encounter Visit Diagnoses Diagnosis Rheumatoid arthritis of multiple sites with negative rheumatoid factor (HCC)- Primary documented in this encounter Care Teams Boiler House Mechanic Relationship Specialty Start Date End Date Tomas Hyman MD [address] [place], [place] [phone] PCP - General Family Medicine 09/05/18 Isidro Heredia MD Rheumatology 02/09/11 documented as of this encounter
--- OUTSIDE RECORDS SUMMARY | 2024-05-10 10:19 | XMS_ITS | Encounter Summary ---
Author Organization [facility] Address [address] [place] [address] Care Team Providers Care Nematologist Name Role Phone Isidro Heredia MD Unavailable [phone] Tomas Hyman MD Primary Care Provider [phone] Reason for Visit * Reason Comments Arthritis follow up Encounter Details Date Type Department Care Team (Late st Contact Info) Description 04/06/2020 2:40 PM COMMUNITY LIVING INSTRUCTOR Office Visit [facility] - Rheumatology [address] [place] [address] Gloria Smith MD [address] [place] [phone] Rheumatoid arthritis of multiple sites with [...] COVID-19? No / Unsure 04/06/2020 1:43 PM COMMUNITY LIVING INSTRUCTOR documented as of this encounter Last Filed Vital Signs Vital Sign Reading Time Taken Comments Blood Pressure 138/75 04/06/2020 2:29 PM COMMUNITY LIVING INSTRUCTOR Pulse 74 04/06/2020 2:29 PM COMMUNITY LIVING INSTRUCTOR Temperature 36.2 ??C (97.2 ??F) 04/06/2020 2:29 PM CS T Respiratory Rate - - Oxygen Saturation - - Inhaled Oxygen Concentration - - Weight 103 kg (227 lb) 04/06/2020 2:29 PM COMMUNITY LIVING INSTRUCTOR Height - - Body Mass Index 32.57 [...] bone density scan - took alendronate from 7447-1778. UNITY LIVING INSTRUCTOR documented in this encounter Plan of Treatment Upcoming Encounters Date Type Department Care Team (Late st Contact Info) Description 06/03/2024 1:00 PM COMMUNITY LIVING INSTRUCTOR Appointment [facility] - Rheumatology [address] [place] [address] 06/03/2024 2:00 PM COMMUNITY LIVING INSTRUCTOR Office Visit [facility] - Rheumatology [address] [place] [address] Gloria Smith MD [address] [place] [phone] documented as of this encounter Procedures Procedure Name Priority Date/Time Associated Diagnosis Comments CBC W AUTO DIFFERENTIAL Routine 05/04/2020 2:52 PM COMMUNITY LIVING INSTRUCTOR Rheumatoid arthritis of multiple sites with negative rheumatoid factor (HCC) COMPREHENSIVE METABOLIC PANEL Routine 05/04/2020 2:52 PM COMMUNITY LIVING INSTRUCTOR Rheumatoid arthritis of multiple sites with negative rheumatoid factor (HCC) documented in this encounter Results * (ABNORMAL) COMPREHENSIVE METABOLIC PANEL (05/04/2020 2:52 PM COMMUNITY LIVING INSTRUCTOR) Glucose 108(H) 70 - 105 mg/dL [facility] [...] BLOOD SPECIMEN / Unknown 05/04/2020 2:52 PM COMMUNITY LIVING INSTRUCTOR 05/04/2020 Narrative Resulting Agency Comment Lab Testing performed at: [facility] [id number] [place] [address] ?? [place] [id number] Gloria Smith MD LAB - CHEMISTRY MARII ARAUJO [facility] INSURANCE BILL [address] [place] [address] * CBC WITH DIFFERENTIAL (05/04/2020 2:52 PM COMMUNITY LIVING INSTRUCTOR) WBC 8.7 4.4 - 10.7 x10E9/L [facility] [...] x10E9/L [facility] INSURANCE BILL Comment:MPV [place] BLOOD ([facility]) 1 0.7 fl 9.4-12.9 Granulocytes % 44.6 [...] BLOOD SPECIMEN / Unknown 05/04/2020 2:52 PM COMMUNITY LIVING INSTRUCTOR 05/04/2020 Narrative Resulting Agency Comment Lab Testing performed at: [address] ?? [facility] [id number] Gloria Smith MD LAB - HEMATOLOGY ORD ERABLES [facility] INSURANCE BILL [address] [place] [address] documented in this encounter Visit Diagnoses Diagnosis Rheumatoid arthritis of multiple sites with negative rheumatoid factor (HCC)- Primary documented in this encounter Care Teams Nematologist Relationship Specialty Start Date End Date Tomas Hyman MD [address] [place] [address] PCP - General Family Medicine 09/05/18 Isidro Heredia MD Rheumatology 02/09/11 documented as of this encounter
--- OUTSIDE RECORDS SUMMARY | 2024-05-10 10:19 | XMS_ITS | Encounter Summary ---
Author Organization [facility] Address [address] [facility] [place] [address] Care Team Providers Care Fuel Quality Tech Name Role Phone Isidro Heredia MD Unavailable [phone] Tomas Hyman MD Primary Care Provider [phone] Encounter Details Date Type Department Care Team (Late Contact Info) Description 12/01/2019 Orders Only [facility] - Rheumatology [address] [place] [address] Gloria Smith MD [address] [place] [phone] Social History Tobacco Use Types Packs/Day [...] (Late Contact Info) Description 06/03/2024 1:00 PM RIPRAP WORKER Appointment [facility] - Rheumatology [address] [place] [address] 06/03/2024 2:00 PM RIPRAP WORKER Office Visit [facility] - Rheumatology [address] [place] [address] Gloria Smith MD [address] [place] [phone] documented as of this encounter Visit Diagnoses Not on filedocumented in this encounter Care Teams Fuel Quality Tech Relationship Specialty Start Date End Date Tomas Hyman MD [address] [facility] [address] [place] [address] PCP - General Family Medicine 09/05/18 Isidro Heredia MD Rheumatology 02/09/11 documented as of this encounter
--- OUTSIDE RECORDS SUMMARY | 2024-05-10 10:19 | XMS_ITS | Encounter Summary ---
Author Organization [facility] Address [address] [facility] [place] [address] Care Team Providers Care Living Skills Advisor Name Role Phone Isidro Heredia MD Unavailable [phone] Tomas Hyman MD Primary Care Provider [phone] Reason for Referral * OP/Amb RFL Auth (Routine) - Closed Specialty Diagnoses / Procedures Referred By Contsarahi t Referred To Contact Diagnoses Right shoulder pain, unspecified chronicity Procedures [place] DRAIN/INJECT LARGE JOINT/BURSA Gloria Smith MD [address] [place] [address] Referral ID Status Reason Start Date Expiration Date Visits Re quested Visits Authorized [id number] Closed 08/24/2020 08/24/2021 1 1 Reason for Visit * Reason Comments Follow-up Encounter Details Date Type Department Care Team (Late st Contact Info) Description 08/24/2020 11:40 AM CDT Office Visit [facility] - Rheumatology [address] [place] [address] Gloria Smith MD [facility] [place] [address] Rheumatoid arthritis of multiple sites [...] bone density scan - took alendronate from 6913-2213. documented in this encounter Miscellaneous Notes * Addendum Note - Chandrakant Madrid - 08/24/2020 1:50 PM CDTAddended by: CHANDRAKANT MADRID on: 08/24/2020 01:50 PM Modules accepted: Orders documented in this encounter Plan of Treatment Upcoming Encounters Date Type Department Care Team (Late st Contact Info) Description 06/03/2024 1:00 PM WOOL SUPPLIER Appointment [facility] - Rheumatology [address] [place] [address] 06/03/2024 2:00 PM WOOL SUPPLIER Office Visit [facility] - Rheumatology [address] [place] [address] Gloria Smith MD [address] [place] [phone] documented as of this encounter Procedures [...] Resulting Agency Comment [facility]: [facility] [address] [facility] ??[facility] [id number] Gloria Smith MD LAB - CHEMISTRY MARII ARAUJO [facility] INSURANCE BILL [address] [place] [address] * (ABNORMAL) COMPREHENSIVE METABOLIC PANEL (08/24/2020 12:33 [...] Resulting Agency Comment Lab Testing performed at: [facility] [address] [place], [place] [address]cierra [place]ra ?? [place] [id number] Gloria Smith MD LAB - CHEMISTRY MARII ARAUJO [facility] INSURANCE BILL [address] [place] [address] * (ABNORMAL) CBC WITH DIFFERENTIAL (08/24/2020 12:33 [...] [facility] INSURANCE BILL Comment:MPV [place] BLOOD ([facility]) 1 1.7 fl 9.4-12.9 Granulocytes % [...] Resulting Agency Comment Lab Testing performed at: [facility] [address] [facility] ?? [place] [id number] Gloria Smith MD LAB - HEMATOLOGY ORD ERABLES [facility] INSURANCE BILL [address] [place] [address] documented in this encounter Visit Diagnoses Diagnosis [...] Shoulder documented in this encounter Care Teams Living Skills Advisor Relationship Specialty Start Date End Date Tomas Hyman MD [address] [facility] [address] [place] [address] PCP - General Family Medicine 09/05/18 Isidro Heredia MD Rheumatology 02/09/11 documented as of this encounter
--- OUTSIDE RECORDS SUMMARY | 2024-05-10 10:19 | XMS_ITS | Encounter Summary ---
Author Organization [facility] Address [address] [facility] [place] [address] Care Team Providers Care Sandwich Peddler Name Role Phone Isidro Heredia MD Unavailable [phone] Tomas Hyman MD Primary Care Provider [phone] Encounter Details Date Type Department Care Team [...] st Contact Info) Description 06/03/2024 1:00 PM VESSEL SCRAPPER HELPER Appointment [facility] - Rheumatology [address] [place] [address] 06/03/2024 2:00 PM VESSEL SCRAPPER HELPER Office Visit [facility] - Rheumatology [address] [place] [address] Gloria Smith MD [address] [place] [phone] documented as of this encounter Visit Diagnoses Not on filedocumented in this encounter Care Teams Sandwich Peddler Relationship Specialty Start Date End Date Tomas Hyman MD [address] [facility] [address] [place] [address] PCP - General Family Medicine 09/05/18 Isidro Heredia MD Rheumatology 02/09/11 documented as of this encounter
--- OUTSIDE RECORDS SUMMARY | 2024-05-10 10:19 | XMS_ITS | Encounter Summary ---
Author Organization [facility] Address [address] [facility] [place] [address] Care Team Providers Care Chief Clerk Name Role Phone sIidro Heredia MD Unavailable [phone] Tomas Hyman MD Primary Care Provider [phone] Encounter Details Date Type Department Care Team [...] COVID-19? No / Unsure 04/06/2020 1:43 PM LUNCH TRUCK DRIVER documented as of this encounter Plan of Treatment Upcoming Encounters Date Type Department Care Team (Late st Contact Info) Description 06/03/2024 1:00 PM LUNCH TRUCK DRIVER Appointment [facility] - Rheumatology [address] [place] [address] 06/03/2024 2:00 PM LUNCH TRUCK DRIVER Office Visit [facility] - Rheumatology [address] [place] [address] Gloria Smith MD [address] [place] [phone] documented as of this encounter Visit Diagnoses Not on filedocumented in this encounter Care Teams Chief Clerk Relationship Specialty Start Date End Date Tomas Hyman MD [address] [facility] [address] [place] [address] PCP - General Family Medicine 09/05/18 Isidro Heredia MD Rheumatology 02/09/11 documented as of this encounter
--- OUTSIDE RECORDS SUMMARY | 2024-05-10 10:19 | XMS_ITS | Encounter Summary ---
Author Organization [facility] Address [address] [place] [address] Care Team Providers Care Remote Recruiter Name Role Phone Isidro Heredia MD Unavailable Tomas Hyman MD Primary Care Provider [phone] Reason for Visit * Reason Onset Date Comments MEDICATION REFILL 10/24/2019 MEDICATION REFILL 11/10/2019 Encounter Details Date Type Department Care Team (Late st Contact Info) Description 10/24/[address] [facility] Medical [facility] - Rheumatology [address] [place] [address] Gloria Smith MD [address] [place] [phone] MEDICATION REFILL; MEDICATION REFILL Social History [...] st Contact Info) Description 06/03/2024 1:00 PM TILE MOLDER HAND Appointment [facility] - Rheumatology [address] [place] [address] [phone] 06/03/2024 2:00 PM TILE MOLDER HAND Office Visit [facility] - Rheumatology [address] [place] [address] [phone] Gloria Smith MD [address] [place] [phone] documented as of this encounter Visit Diagnoses Not on filedocumented in this encounter Care Teams Remote Recruiter Relationship Specialty Start Date End Date Tomas Hyman MD [address] [facility] [address] [place] [address] PCP - General Family Medicine 09/05/18 Isidro Heredia MD Rheumatology 02/09/11 documented as of this encounter
--- OUTSIDE RECORDS SUMMARY | 2024-05-10 10:19 | XMS_ITS | Encounter Summary ---
Author Organization [facility] Address [address] [place] [address] Care Team Providers Care Fan Engine Engineer Name Role Phone Isidro Heredia MD Unavailable [phone] Tomas Hyman MD Primary Care Provider [phone] Reason for Visit * Treatment (Routine) - Closed Specialty Diagnoses / Procedures Referred By Contact Referred To Contact Infusion Therapy Nurse / Rheumatology Diagnoses Rheumatoid arthritis without rheumatoid factor, multiple sites (HCC) Procedures [place] INFLIXIMAB INJECTION Gloria Smith MD [address] [place] [address] [facility] [address] [address] Referral ID Status Reason Start Date Expiration Date Visits Re quested Visits Authorized [id number] Closed 05/04/2020 04/29/2021 12 12 Encounter Details Date Type Department Care Team (Late st Contact Info) Description 06/29/2020 10:57 AM LANDMEN - 06/29/2020 11:59 PM L[facility]MEN Hospital Encounter [facility] Medical [facility] - Rheumatology [address] [place] [address] Gloria Smith MD [address] [place] [address] [address] Discharge Disposition: Home or Self [...] COVID-19? No / Unsure 06/29/2020 11:44 AM LANDMEN documented as of this encounter Last Filed Vital Signs Vital Sign Reading Time Taken Comments Blood Pressure 130/74 06/29/2020 11:14 AM LANDMEN Pulse 79 06/29/2020 11:14 AM LANDMEN Temperature 36.6 ??C (97.9 ??F) 06/29/2020 11:[address] Respiratory Rate 18 06/29/2020 11:14 AM LANDMEN Oxygen Saturation - - Inhaled Oxygen Concentration - - Weight 105.7 kg (233 lb) 06/29/2020 11:14 AM LANDMEN Height - - Body Mass Index 33.43 05/10/2020 10:26 AM LANDMEN documented in this encounter Discharge Instructions * Discharge Instructions* Jody Sahu RN - 06/29/2020 11:20 AM LANDMEN [place] Rheumatology Post Infusion instructions You have [...] through Sunday 9-5 call the office at [phone] After hours or on the weekend call the exchange at [phone] If you have had lab work done [...] [facility] Jody Sahu, TOVA MEN documented in this encounter Medications at Time of Discharge Medication Sig Dispensed Refills Start Date End Date atorvastatin (LIPITOR) 40 MG tablet Take 1 (one) tablet by mouth at bedtime gnufiktpnfs-qvlh-wum ysorb, PF, 0.5-1-0.5 % SOLN Instill 1 [...] 06/29/2020 11:40 AM CST JOSE Allred Deng [id number] 06/29/2020 Diagnosis: Rheumatoid arthritis without rheumatoid factor, [...] Next treatment? 4 weeks Jody Sahu RN MEN documented in this encounter Plan of Treatment Upcoming Encounters Date Type Department Care Team (Late st Contact Info) Description 06/03/2024 1:00 PM LANDMEN Appointment [facility] - Rheumatology [address] [place] [address] 06/03/2024 2:00 PM LANDMEN Office Visit [facility] - Rheumatology [address] [place] [address] Gloria Smith MD [address] [place] [phone] documented as of this encounter Visit [...] filter. $ New Bag/Syringe 06/29/2020 11:32 AM LANDMEN 600 mg 135 mL/hr documented in this encounter Care Teams Fan Engine Engineer Relationship Specialty Start Date End Date Tomas Hyman MD [address] [place], [place] [phone] PCP - General Family Medicine 09/05/18 Isidro Heredia MD Rheumatology 02/09/11 documented as of this encounter
--- OUTSIDE RECORDS SUMMARY | 2024-05-10 10:19 | XMS_ITS | Encounter Summary ---
Author Organization [facility] Address [address] [facility] [place] [address] Care Team Providers Care Date Night Sitter Name Role Phone Isidro Heredia MD Unavailable [phone] Tomas Hyman MD Primary Care Provider [phone] Encounter Details Date Type Department Care Team [...] st Contact Info) Description 06/03/2024 1:00 PM TOY PARTS FORMER SUPERVISOR Appointment [facility] - Rheumatology [address] [place] [address] 06/03/2024 2:00 PM TOY PARTS FORMER SUPERVISOR Office Visit [facility] - Rheumatology [address] [place] [address] Gloria Smith MD [address] [place] [phone] documented as of this encounter Visit Diagnoses Not on filedocumented in this encounter Care Teams Date Night Sitter Relationship Specialty Start Date End Date Tomas Hyman MD [address] [facility] [address] [place] [address] PCP - General Family Medicine 09/05/18 Isidro Heredia MD Rheumatology 02/09/11 documented as of this encounter
--- OUTSIDE RECORDS SUMMARY | 2024-05-10 10:19 | XMS_ITS | Encounter Summary ---
Author Organization [facility] Address [address] [place] [address] Care Team Providers Care Documentation Nurse Name Role Phone Isidro Heredia MD Unavailable [phone] Tomas Hyman MD Primary Care Provider [phone] Encounter Details Date Type Department Care Team (Late Contact Info) Description 08/29/2019 Orders Only [facility] - Rheumatology [address] [place] [address] Gloria Smith MD [address] [place] [phone] Social History Tobacco Use Types Packs/Day [...] Contact Info) Description 06/03/2024 1:00 PM LEAD DATA ARCHITECT Appointment [facility] - Rheumatology [address] [place] [address] 06/03/2024 2:00 PM LEAD DATA ARCHITECT Office Visit [facility] - Rheumatology [address] [place] [address] Gloria Smith MD [address] [place] [phone] documented as of this encounter Visit Diagnoses Not on filedocumented in this encounter Care Teams Documentation Nurse Relationship Specialty Start Date End Date Tomas Hyman MD [address] [facility] [address] [place] [address] PCP - General Family Medicine 09/05/18 Isidro Heredia MD Rheumatology 02/09/11 documented as of this encounter
--- OUTSIDE RECORDS SUMMARY | 2024-05-10 10:19 | XMS_ITS | Encounter Summary ---
Author Organization [facility] Address [address] [facility] [place] [address] Care Team Providers Care Shop Coordinator Name Role Phone Isidro Heredia MD Unavailable [phone] Tomas Hyman MD Primary Care Provider [phone] Reason for Visit * Reason Onset Date Comments MEDICATION REFILL 07/12/2020 MEDICATION REFILL 07/20/2020 Encounter Details Date Type Department Care Team (Late st Contact Info) Description 07/12/2020 Refill [facility] Medical [facility] - Rheumatology [address] [place] [address] Gloria Smith MD [address] [place] [phone] MEDICATION REFILL; MEDICATION REFILL Social History [...] COVID-19? No / Unsure 06/29/2020 11:44 AM JOB CHANGE CREW MEMBER documented as of this encounter Miscellaneous Notes [...] st Contact Info) Description 06/03/2024 1:00 PM JOB CHANGE CREW MEMBER Appointment [facility] - Rheumatology [address] [place], [place] [id number] 06/03/2024 2:00 PM JOB CHANGE CREW MEMBER Office Visit [facility] - Rheumatology [address] [place] [address] Gloria Smith MD [address] [place] [phone] documented as of this encounter Visit Diagnoses Not on filedocumented in this encounter Care Teams Shop Coordinator Relationship Specialty Start Date End Date Tomas Hyman MD [address] [facility] [address] [place] [address] PCP - General Family Medicine 09/05/18 Isidro Heredia MD Rheumatology 02/09/11 documented as of this encounter
--- OUTSIDE RECORDS SUMMARY | 2024-05-10 10:19 | XMS_ITS | Encounter Summary ---
Author Organization [facility] Address [address] [facility] [address] Care Team Providers Care Product Support Technician Name Role Phone Isidro Heredia MD Unavailable [phone] Tomas Hyman MD Primary Care Provider [phone] Reason for Visit * Reason Onset Date Comments MEDICATION REFILL 04/05/2020 MEDICATION REFILL 04/12/2020 Encounter Details Date Type Department Care Team (Late Contact Info) Description 04/05/2020 Refill [facility] - Rheumatology [address] [place] [address] Mycsoheilat, Generic Provider MEDICATION REFILL; MEDICATION [...] COVID-19? No / Unsure 04/09/2020 1:56 PM SOCIAL SECRETARY documented as of this encounter Plan of Treatment Upcoming Encounters Date Type Department Care Team (Late Contact Info) Description 06/03/2024 1:00 PM SOCIAL SECRETARY Appointment [facility] Rheumatology [address] [place] [address] 06/03/2024 2:00 PM SOCIAL SECRETARY Office Visit [facility] - Rheumatology [address] [place] [address] Gloria Smith MD [facility] [place] [phone] documented as of this encounter Visit Diagnoses Not on filedocumented in this encounter Care Teams Product Support Technician Relationship Specialty Start Date End Date Tomas Hyman MD [address] [facility] [address] [place] [address] PCP - General Family Medicine 09/05/18 Isidro Heredia MD Rheumatology 02/09/11 documented as of this encounter
--- OUTSIDE RECORDS SUMMARY | 2024-05-10 10:19 | XMS_ITS | Encounter Summary ---
Author Organization [facility] Address [address] [place] [address] Care Team Providers Care Application Infrastructure Engineer Name Role Phone Isidro Heredia MD Unavailable [phone] Tomas Hyman MD Primary Care Provider [phone] Reason for Visit * Reason Onset Date Comments Infusion 09/24/2019 Encounter Details Date Type Department Care Team (Late st Contact Info) Description 09/24/2019 Telephone [facility] Medical [facility] - Rheumatology [id number] [place] [address] Gloria Smith MD [address] [place] [phone] Infusion Social History Tobacco Use Types [...] Contact Info) Description 06/03/2024 1:00 PM SENIOR FINANCIAL Appointment [facility] - Rheumatology [address] [place] [phone] 06/03/2024 2:00 PM SENIOR FINANCIAL Office Visit [facility] - Rheumatology [address] [place] [address] [phone] Gloria Smith MD [address] [place] [phone] documented as of this encounter Visit Diagnoses Not on filedocumented in this encounter Care Teams Application Infrastructure Engineer Relationship Specialty Start Date End Date Tomas Hyman MD [address] [facility] [address] [place] [address] PCP - General Family Medicine 09/05/18 Isidro Heredia MD Rheumatology 02/09/11 documented as of this encounter
--- OUTSIDE RECORDS SUMMARY | 2024-05-10 10:19 | XMS_ITS | Encounter Summary ---
Author Organization [facility] Address [address] [facility] [place] [address] Care Team Providers Care Frame Stripper And Crusher Name Role Phone Isidro Heredia MD Unavailable Tomas Hyman MD Primary Care Provider Reason for Visit * Treatment (Routine) - Closed Specialty Diagnoses / Procedures Referred By [place] shah Referred To Contact Infusion Therapy Nurse Diagnoses Rheumatoid arthritis without rheumatoid factor, multiple sites (HCC) Procedures [place] INFLIXIMAB INJECTION Gloria Smith MD [address] [place] [address] [facility] [address] [place] [phone] Referral ID Status Reason Start Date Expiration Date Visits Re quested Visits Authorized [id number] Closed 05/09/2019 04/29/2020 1 12 Encounter Details Date Type Department Care Team (Late st Contact Info) Description 09/26/2019 9:49 AM CDT - 09/26/2019 11:59 PM CDT Hospital Encounter [facility] - Rheumatology [address] [facility] [place] [address] Gloria Smith MD [address] [place] [address] Discharge Disposition: Home or Self [...] Sahu RN - 09/26/2019 10:33 AM CDT [place] Rheumatology Post Infusion instructions [...] through Sunday 9-5 call the office at [phone] After hours or on the weekend call the exchange at [phone] If you have had lab work done [...] [facility] as your provider. Jody Sahu, RN documented in this encounter Medications at Time of Discharge Medication Sig Dispensed Refills Start Date End Date atorvastatin (LIPITOR) 40 MG tablet Take 1 (one) tablet by mouth at bedtime lknmokqcvax-bogg-ax lysorb, PF, 0.5-1-0.5 % SOLN Instill 1 [...] - 09/26/2019 10:00 AM CDT JOSE Deng [id number] 09/26/2019 Diagnosis: Rheumatoid arthritis without rheumatoid factor, [...] st Contact Info) Description 06/03/2024 1:00 PM PECAN PICKER Appointment [facility] - Rheumatology [address] [place] [address] 06/03/2024 2:00 PM PECAN PICKER Office Visit [facility] - Rheumatology [address] [place] [address] [phone] Gloria Smith MD [address] [place] [phone] documented as of this encounter Visit [...] previously received three standard infliximab infusions at [facility] -Patient has no history of infusion-related hypersensitivity [...] mL/hr documented in this encounter Care Teams Frame Stripper And Crusher Relationship Specialty Start Date End Date Tomas Hyman MD [address] [facility] [address] [place] [address] PCP - General Family Medicine 09/05/18 Isidro Heredia MD Rheumatology 02/09/11 documented as of this encounter
--- OUTSIDE RECORDS SUMMARY | 2024-05-10 10:19 | XMS_ITS | Encounter Summary ---
Author Organization [facility] Address [address] [place] [address] Care Team Providers Care Ear Mold Laboratory Technician Name Role Phone Isidro Heredia MD Unavailable [phone] Tomas Hyman MD Primary Care Provider [phone] Reason for Visit * Reason Onset Date Comments Question 09/13/2020 Encounter Details Date Type Department Care Team (Late st Contact Info) Description 09/13/2020 Telephone [facility] Medical [facility] - Rheumatology [address] [place] [address] Gloria Smith MD [address] [place] [phone] Question Social History Tobacco Use Types [...] st Contact Info) Description 06/03/2024 1:00 PM FLATWORK FEEDER Appointment [facility] - Rheumatology [address] [place] [phone] 06/03/2024 2:00 PM FLATWORK FEEDER Office Visit [facility] - Rheumatology [address] [place] [place] [address] [phone] Gloria Smith MD [address] [place] [phone] documented as of this encounter Visit Diagnoses Not on filedocumented in this encounter Care Teams Ear Mold Laboratory Technician Relationship Specialty Start Date End Date Tomas Hyman MD [address] [facility] [address] [place] [address] PCP - General Family Medicine 09/05/18 Isidro Heredia MD Rheumatology 02/09/11 documented as of this encounter
--- OUTSIDE RECORDS SUMMARY | 2024-05-10 10:19 | XMS_ITS | Encounter Summary ---
Author Organization [facility] Address [address] [facility] [place] [address] Care Team Providers Care Folder Hand Name Role Phone Isidro Heredia MD Unavailable [phone] Tomas Hyman MD Primary Care Provider [phone] Encounter Details Date Type Department Care Team [...] st Contact Info) Description 06/03/2024 1:00 PM LATHER APPRENTICE Appointment [facility] - Rheumatology [address] [place] [address] 06/03/2024 2:00 PM LATHER APPRENTICE Office Visit [facility] - Rheumatology [address] [place] [address] Gloria Smith MD [address] [place] [phone] documented as of this encounter Visit Diagnoses Not on filedocumented in this encounter Care Teams Folder Hand Relationship Specialty Start Date End Date Tomas Hyman MD [address] [facility] [address] [place] [address] PCP - General Family Medicine 09/05/18 Isidro Heredia MD Rheumatology 02/09/11 documented as of this encounter
--- OUTSIDE RECORDS SUMMARY | 2024-05-10 10:19 | XMS_ITS | Encounter Summary ---
Author Organization [facility] Address [address] [facility] [place] [address] Care Team Providers Care Loss Control Consultant Name Role Phone Isidro Heredia MD Unavailable [phone] Tomas Hyman MD Primary Care Provider [phone] Encounter Details Date Type Department Care Team [...] COVID-19? No / Unsure 04/09/2020 1:56 PM SENIOR REPORT DEVELOPER documented as of this encounter Plan of Treatment Upcoming Encounters Date Type Department Care Team (Late st Contact Info) Description 06/03/2024 1:00 PM SENIOR REPORT DEVELOPER Appointment [facility] - Rheumatology [address] [place] [address] 06/03/2024 2:00 PM SENIOR REPORT DEVELOPER Office Visit [facility] - Rheumatology [address] [place] [address] Gloria Smith MD [address] [place] [phone] documented as of this encounter Visit Diagnoses Not on filedocumented in this encounter Care Teams Loss Control Consultant Relationship Specialty Start Date End Date Tomas Hyman MD [address] [facility] [address] [place] [address] PCP - General Family Medicine 09/05/18 Isidro Heredia MD Rheumatology 02/09/11 documented as of this encounter
--- OUTSIDE RECORDS SUMMARY | 2024-05-10 10:19 | XMS_ITS | Encounter Summary ---
Author Organization [facility] Address [address] [facility] [place] [address] Care Team Providers Care Service Observer Chief Name Role Phone Isidro Heredia MD Unavailable [phone] Tomas Hyman MD Primary Care Provider Encounter [...] st Contact Info) Description 06/03/2024 1:00 PM JOINT TERMINAL ATTACK CONTROLLER Appointment [facility] - Rheumatology [address] [place] [address] 06/03/2024 2:00 PM JOINT TERMINAL ATTACK CONTROLLER Office Visit [facility] - Rheumatology [address] [place] [address] Gloria Smith MD [address] [place] [phone] documented as of this encounter Visit Diagnoses Not on filedocumented in this encounter Care Teams Service Observer Chief Relationship Specialty Start Date End Date Tomas Hyman MD [address] [facility] [address] [place] [address] PCP - General Family Medicine 09/05/18 Isidro Heredia MD Rheumatology 02/09/11 documented as of this encounter
--- OUTSIDE RECORDS SUMMARY | 2024-05-10 10:19 | XMS_ITS | Encounter Summary ---
Author Organization [facility] Address [address] [facility] [place] [address] Care Team Providers Care Mechanic Industrial Truck Name Role Phone Isidro Heredia MD Unavailable [phone] Tomas Hyman MD Primary Care Provider [phone] Encounter Details Date Type Department Care Team [...] COVID-19? No / Unsure 06/29/2020 11:44 AM STEEL UNLOADER documented as of this encounter Plan of Treatment Upcoming Encounters Date Type Department Care Team (Late st Contact Info) Description 06/03/2024 1:00 PM STEEL UNLOADER Appointment [facility] - Rheumatology [address] [place] [address] 06/03/2024 2:00 PM STEEL UNLOADER Office Visit [facility] - Rheumatology [address] [place] [address] Gloria Smith MD [address] [place] [phone] documented as of this encounter Visit Diagnoses Not on filedocumented in this encounter Care Teams Mechanic Industrial Truck Relationship Specialty Start Date End Date Tomas Hyman MD [address] [facility] [address] [place] [address] PCP - General Family Medicine 09/05/18 Isidro Heredia MD Rheumatology 02/09/11 documented as of this encounter
--- OUTSIDE RECORDS SUMMARY | 2024-05-10 10:19 | XMS_ITS | Encounter Summary ---
Author Organization [facility] Address [address] [place] [address] Care Team Providers Care Non Food Receiving Clerk Name Role Phone Isidro Heredia MD Unavailable [phone] Tomas Hyman MD Primary Care Provider [phone] Reason for Visit * Treatment (Routine) - Closed Specialty Diagnoses / Procedures Referred By Contact Referred To Contact Infusion Therapy Nurse / Rheumatology Diagnoses Rheumatoid arthritis without rheumatoid factor, multiple sites (HCC) Procedures [place] INFLIXIMAB INJECTION Gloria Smith MD [address] [place] [address] [facility] [address] [address] Referral ID Status Reason Start Date Expiration Date Visits Re quested Visits Authorized [id number] Closed 05/04/2020 04/29/2021 12 12 Encounter Details Date Type Department Care Team (Late st Contact Info) Description 05/04/2020 11:42 AM SOLAR HOT WATER INSTALLER - 05/04/2020 11:59 PM SOLAR HOT WATER INSTALLER Hospital Encounter [facility] Medical [facility] - Rheumatology [address] [place] [address] Gloria Smith MD [address] [place] [address] [address] Discharge Disposition: Home or Self [...] COVID-19? No / Unsure 05/04/2020 2:08 PM SOLAR HOT WATER INSTALLER documented as of this encounter Last Filed Vital Signs Vital Sign Reading Time Taken Comments Blood Pressure 126/84 05/04/2020 12:14 PM SOLAR HOT WATER INSTALLER Pulse 78 05/04/2020 12:14 PM SOLAR HOT WATER INSTALLER Temperature 36.2 ??C (97.2 ??F) 05/04/2020 12:[address] Respiratory Rate 18 05/04/2020 12:14 PM SOLAR HOT WATER INSTALLER Oxygen Saturation - - Inhaled Oxygen Concentration - - Weight 103.4 kg (228 lb) 05/04/2020 12:14 PM SOLAR HOT WATER INSTALLER Height - - Body Mass Index 32.71 11/10/2019 10:34 AM CDT documented in this encounter Discharge Instructions * Discharge Instructions* Jody Sahu RN - 05/04/2020 12:41 PM SOLAR HOT WATER INSTALLER PA Rheumatology Post Infusion instructions You have [...] through Sunday 9-5 call the office at [phone] After hours or on the weekend call the exchange at [phone] If you have had lab work done [...] Center as your provider. Jody Sahu, TOVA R HOT WATER INSTALLER documented in this encounter Medications at Time of Discharge Medication Sig Dispensed Refills Start Date End Date atorvastatin (LIPITOR) 40 MG tablet Take 1 (one) tablet by mouth at bedtime mwghycpqroi-bgfs-kzt ysorb, PF, 0.5-1-0.5 % SOLN Instill 1 [...] 05/04/2020 12:42 PM CST JOSE Allred Ish [id number] 05/04/2020 Diagnosis: Rheumatoid arthritis without rheumatoid factor, multiple sites [M06.09]. Pt denies symptoms of infection or antibiotic use, no open wounds, or recent surgery, or plans for surgery in the next couple of weeks. Pt is aware that we use the 0-10 pain scale to assess discomfort. 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 front office supervisor pt signs consent for treatment for [...] treatment? 4 weeks Jody Sahu RN R HOT WATER INSTALLER documented in this encounter Plan of Treatment Upcoming Encounters Date Type Department Care Team (Late st Contact Info) Description 06/03/2024 1:00 PM SOLAR HOT WATER INSTALLER Appointment [facility] - Rheumatology [address] [place] [address] 06/03/2024 2:00 PM SOLAR HOT WATER INSTALLER Office Visit [facility] - Rheumatology [address] [place] [address] Gloria Smith MD [address] [place] [phone] documented as of this encounter Visit [...] filter. $ New Bag/Syringe 05/04/2020 12:28 PM SOLAR HOT WATER INSTALLER 600 mg 135 mL/hr documented in this encounter Care Teams Non Food Receiving Clerk Relationship Specialty Start Date End Date Tomas Hyman MD [address] [place] [address] PCP - General Family Medicine 09/05/18 Isidro Heredia MD Rheumatology 02/09/11 documented as of this encounter
--- OUTSIDE RECORDS SUMMARY | 2024-05-10 10:19 | XMS_ITS | Encounter Summary ---
Author Organization [facility] Address [address] [facility] [place] [address] Care Team Providers Care Millinery Worker Name Role Phone Isidro Heredia MD Unavailable [phone] Tomas Hyman MD Primary Care Provider [phone] Reason for Visit * Treatment (Routine) - Closed Specialty Diagnoses / Procedures Referred By [place] shah Referred To Contact Infusion Therapy Nurse Diagnoses Rheumatoid arthritis without rheumatoid factor, multiple sites (HCC) Procedures [place] INFLIXIMAB INJECTION Gloria Smith MD [address] [place] [address] [address] Referral ID Status Reason Start Date Expiration Date Visits Re quested Visits Authorized [id number] Closed 05/09/2019 04/29/2020 1 12 Encounter Details Date Type Department Care Team (Late st Contact Info) Description 11/10/2019 9:38 AM CDT - 11/10/2019 11:59 PM CDT Hospital Encounter [facility] Medical [facility] - Rheumatology [address] [place] [address] Gloria Smith MD [facility] [place] [address] Discharge Disposition: Home or Self [...] Sahu RN - 11/10/2019 10:10 AM CDT OR Rheumatology Post Infusion instructions [...] Sunday through 01-02 call the office at [phone] After hours or on the weekend call the exchange at [phone] If you have had lab work done [...] 1 (one) tablet by mouth at bedtime cthsipsboxv-ptbv-bs lysorb, PF, 0.5-1-0.5 % SOLN Instill 1 [...] 11/10/2019 10:00 AM CDT JOSE Chalino Deng [id number] 11/10/2019 Diagnosis: Rheumatoid arthritis without rheumatoid factor, [...] st Contact Info) Description 06/03/2024 1:00 PM PENAL OFFICER Appointment [facility] - Rheumatology [address] [place] [address] 06/03/2024 2:00 PM PENAL OFFICER Office Visit [facility] - Rheumatology [address] [place] [address] Gloria Smith MD [address] [place] [phone] documented as of this encounter Visit [...] mL/hr documented in this encounter Care Teams Millinery Worker Relationship Specialty Start Date End Date Tomas Hyman MD [address] [facility] [address] [place] [id number] PCP - General Family Medicine 09/05/18 Isidro Heredia MD Rheumatology 02/09/11 documented as of this encounter
--- OUTSIDE RECORDS SUMMARY | 2024-05-10 10:19 | XMS_ITS | Encounter Summary ---
Author Organization [facility] Address [address] [facility] [place] [address] Care Team Providers Care Kaiwhakahaere Name Role Phone Isidro Heredia MD Unavailable [phone] Tomas Hyman MD Primary Care Provider [phone] Encounter Details Date Type Department Care Team (Latest Contact Info) Description 12/19/2019 10:56 AM CDT - 12/19/2019 10:57 AM CDT Hospital Encounter [facility] [address] [place] [address] [place] [address] [place] [address] Discharge Disposition: Home or Self [...] 1 (one) tablet by mouth at bedtime ooezaaznquv-khcq-nk lysorb, PF, 0.5-1-0.5 % SOLN Instill 1 [...] st Contact Info) Description 06/03/2024 1:00 PM FORESTRY CREW CHIEF Appointment [facility] - Rheumatology [address] [place] [address] 06/03/2024 2:00 PM FORESTRY CREW CHIEF Office Visit [facility] - Rheumatology [address] [place] [address] Gloria Smith MD [address] [place] [phone] documented as of this encounter Visit Diagnoses Not on filedocumented in this encounter Care Teams Kaiwhakahaere Relationship Specialty Start Date End Date Tomas Hyman MD [address] [place] [address] [address] [place] [address] PCP - General Family Medicine 09/05/18 Isidro Heredia MD Rheumatology 02/09/11 documented as of this encounter
--- OUTSIDE RECORDS SUMMARY | 2024-05-10 10:19 | XMS_ITS | Encounter Summary ---
Author Organization [facility] Address [address] [facility] [place] [address] Care Team Providers Care Information Clerk Name Role Phone Isidro Heredia MD Unavailable Tomas Hyman MD Primary Care Provider [phone] Encounter Details Date Type Department Care Team [...] st Contact Info) Description 06/03/2024 1:00 PM EMERGENCY VETERINARY TECHNICIAN Appointment [facility] - Rheumatology [address] [place] [address] 06/03/2024 2:00 PM EMERGENCY VETERINARY TECHNICIAN Office Visit [facility] - Rheumatology [address] [place] [address] Gloria Smith MD [address] [place] [phone] documented as of this encounter Visit Diagnoses Not on filedocumented in this encounter Care Teams Information Clerk Relationship Specialty Start Date End Date Tomas Hyman MD [address] [facility] [address] [place] [address] PCP - General Family Medicine 09/05/18 Isidro Heredia MD Rheumatology 02/09/11 documented as of this encounter
--- OUTSIDE RECORDS SUMMARY | 2024-05-10 10:19 | XMS_ITS | Encounter Summary ---
Author Organization [facility] Address [address] [facility] [place] [address] Care Team Providers Care Coverstitch Binder Name Role Phone Isidro Heredia MD Unavailable [phone] Tomas Hyman MD Primary Care Provider [phone] Encounter Details Date Type Department Care Team [...] Contact Info) Description 06/03/2024 1:00 PM FIELD BROOMER Appointment [facility] - Rheumatology [address] [place] [address] 06/03/2024 2:00 PM FIELD BROOMER Office Visit [facility] - Rheumatology [address] [place] [address] Gloria Smith MD [address] [place] [phone] documented as of this encounter Visit Diagnoses Not on filedocumented in this encounter Care Teams Coverstitch Binder Relationship Specialty Start Date End Date Tomas Hyman MD [address] [facility] [address] [place] [address] PCP - General Family Medicine 09/05/18 Isidro Heredia MD Rheumatology 02/09/11 documented as of this encounter
--- OUTSIDE RECORDS SUMMARY | 2024-05-10 10:19 | XMS_ITS | Encounter Summary ---
Author Organization [facility] Address [address] [place] [address] Care Team Providers Care Plate Roller Name Role Phone Isidro Heredia MD Unavailable [phone] Tomas Hyman MD Primary Care Provider [phone] Encounter Details Date Type Department Care Team [...] Contact Info) Description 06/03/2024 1:00 PM HYDRAULIC BILLET MAKER Appointment [facility] - Rheumatology [address] [place] [address] 06/03/2024 2:00 PM HYDRAULIC BILLET MAKER Office Visit [facility] - Rheumatology [address] [place] [address] Gloria Smith MD [address] [place] [phone] documented as of this encounter Visit Diagnoses Not on filedocumented in this encounter Care Teams Plate Roller Relationship Specialty Start Date End Date Tomas Hyman MD [address] [facility] [address] [place] [address] PCP - General Family Medicine 09/05/18 Isidro Heredia MD Rheumatology 02/09/11 documented as of this encounter
--- OUTSIDE RECORDS SUMMARY | 2024-05-10 10:19 | XMS_ITS | Encounter Summary ---
Author Organization [facility] Address [address] [facility] [place] [address] Care Team Providers Care Hvac Maintenance Technician Name Role Phone Isidro Heredia MD Unavailable [phone] Tomas Hyman MD Primary Care Provider [phone] Encounter Details Date Type Department Care Team (Latest Contact Info) Description 12/19/2019 10:58 AM CDT - 12/19/2019 11:59 PM CDT Hospital Encounter [facility] [address] [place] [address] [place] [address] [place] [address] Discharge Disposition: Home or Self [...] Paris RN - 12/19/2019 11:00 AM CDT [facility] Procedure Center Pain Discharge Instructions [...] headache, or any other problems, please call [phone] or after hours callDr. Barnett at [phone] and tell them your physician's name. The exchange will alert the physician brim ironer hand. If sedation is given: No sedation given. For Your Next Visit: No additional instructions. Other Instructions: May remove band-aid in 12 Hours. Return in 3-[address] Lazar documented in this encounter Medications at Time of Discharge Medication Sig Dispensed Refills Start Date End Date atorvastatin (LIPITOR) 40 MG tablet Take 1 (one) tablet by mouth at bedtime blmnghcdngy-wafc-ul lysorb, PF, 0.5-1-0.5 % SOLN Instill 1 [...] acute distress, well developed, well nourished categoryPropId= [id number] examid= [id number] GENERALAPPEARANCE: in no acute distress, well developed, well nourished. NC/AT, Symmetrical categoryPropId= [id number] examid= [id number] HEAD: NC/AT, Symmetrical. PERRLA, EOMI, Visual keen intact categoryPropId= [id number] examid= [id number] EYES: PERRLA, EOMI, Visual keen intact. Hearing intact categoryPropId= [id number] examid= [id number] EARS: Hearing intact. Supple, non-tender, no thyroidomegaly categoryPropId= [id number] examid= [id number] NECK/THYROID: Supple, non-tender, no thyroidomegaly. Lungs clear w/o wheezes, no rales or rhonchi categoryPropId= [id number] examid= [id number] RESPIRATORY: Lungs clear w/o wheezes, no rales or rhonchi. regular rate & rhythm, no murmurs categoryPropId= [id number] examid= [id number] HEART: regular rate & rhythm, no murmurs. [...] cm Diameter Left calf: 43 cm categoryPropId= [id number] examid= [id number] MUSCULOSKELETAL: ambulates with slow antalgic gait with [...] Skin w/o lesions, moist, well perfused categoryPropId= [id number] examid= [id number] SKIN: Skin w/o lesions, moist, well perfused. Patient alert & oriented, appropriate mood & affect, speech normal, tone normal, affect appropriate, NAD. Patient denies suicidal ideation. Patient denies homicidal ideation. categoryPropId= [id number] examid= [id number] PSYCH: Patient alert & oriented, appropriate mood & affect, speech normal, tone normal, affect appropriate, NAD. Patient denies suicidal ideation. Patient denieshomicidal ideation.. Active bowel sounds, soft, no mass or organomegaly categoryPropId= [id number] examid= [id number] GASTROINTESTINAL: Active bowel sounds, soft, no mass [...] --- Procedure DATE OF PROCEDURE: 12/19/2019 SURGEON: AUN BARNETT MD PRE-OPERATIVE DIAGNOSIS: Other spondylosis with [...] DRAINS: None. COMPLICATIONS: None. CONDITION POSTPROCEDURE: Stable. GROCERY STORE BAGGER: None. INDICATIONS: Please refer to H/P for [...] on how to reach the clinic or brim ironer hand physician at anytime for questions or complaints. documented in this encounter Plan of Treatment Upcoming Encounters Date Type Department Care Team (Late st Contact Info) Description 06/03/2024 1:00 PM DEPORTATION EXAMINER Appointment [facility] - Rheumatology [address] [place] [phone] 06/03/2024 2:00 PM DEPORTATION EXAMINER Office Visit [facility] - Rheumatology [address] [place] [address] Gloria Smith MD [address] [place] [phone] Pending Results Name Type Priority Associated Diagnoses [...] Back documented in this encounter Care Teams Hvac Maintenance Technician Relationship Specialty Start Date End Date Tomas Hyman MD [address] [facility] [address] [place] [address] PCP - General Family Medicine 09/05/18 Isidro Heredia MD Rheumatology 02/09/11 documented as of this encounter
--- OUTSIDE RECORDS SUMMARY | 2024-05-10 10:19 | XMS_ITS | Encounter Summary ---
Author Organization [facility] Address [address] [place] [address] Care Team Providers Care Online Advertising Analyst Name Role Phone Isidro Heredia MD Unavailable [phone] Tomas Hyman MD Primary Care Provider [phone] Encounter Details Date Type Department Care Team [...] Contact Info) Description 06/03/2024 1:00 PM SPEECH PATHOLOGIST ASSISTANT Appointment [facility] - Rheumatology [address] [place] [address] 06/03/2024 2:00 PM SPEECH PATHOLOGIST ASSISTANT Office Visit [facility] - Rheumatology [address] [place] [address] Gloria Smith MD [address] [place] [phone] documented as of this encounter Visit Diagnoses Not on filedocumented in this encounter Care Teams Online Advertising Analyst Relationship Specialty Start Date End Date Tomas Hyman MD [address] [facility] [address] [place] [address] PCP - General Family Medicine 09/05/18 Isidro Heredia MD Rheumatology 02/09/11 documented as of this encounter
--- OUTSIDE RECORDS SUMMARY | 2024-05-10 10:19 | XMS_ITS | Encounter Summary ---
Author Organization [facility] Address [address] [facility] [place] [place] [address] Care Team Providers Care Roll Plugger Name Role Phone Isidro Heredia MD Unavailable [phone] Tomas Hyman MD Primary Care Provider [phone] Reason for Visit * Reason Onset Date Comments Update 12/05/2019 Encounter Details Date Type Department Care Team (Late st Contact Info) Description 12/05/2019 Telephone [facility] Medical [facility] - Rheumatology [address] [place] [address] Gloria Smith MD [address] [place] [phone] Update Social History Tobacco Use Types [...] st Contact Info) Description 06/03/2024 1:00 PM SIDING COREBOARD INSPECTOR Appointment [facility] - Rheumatology [address] [place] [address] [phone] 06/03/2024 2:00 PM SIDING COREBOARD INSPECTOR Office Visit [facility] - Rheumatology [address] [place] [address] Gloria Smith MD [address] [place] [phone] documented as of this encounter Visit Diagnoses Not on filedocumented in this encounter Care Teams Roll Plugger Relationship Specialty Start Date End Date Tomas Hyman MD [address] [facility] [address] [place] [address] PCP - General Family Medicine 09/05/18 Isidro Heredia MD Rheumatology 02/09/11 documented as of this encounter
--- OUTSIDE RECORDS SUMMARY | 2024-05-10 10:19 | XMS_ITS | Encounter Summary ---
Author Organization [facility] Address [address] [facility] [place] [address] Care Team Providers Care Farm Equipment Service Technician Name Role Phone Isidro Heredia MD Unavailable [phone] Tomas Hyman MD Primary Care Provider [phone] Reason for Visit * Treatment (Routine) - Closed Specialty Diagnoses / Procedures Referred By Contact Referred To Contact Infusion Therapy Nurse / Rheumatology Diagnoses Rheumatoid arthritis without rheumatoid factor, multiple sites (HCC) Procedures [place] INFLIXIMAB INJECTION Gloria Smith MD [address] [place] [address] [facility] [address] [address] Referral ID Status Reason Start Date Expiration Date Visits Re quested Visits Authorized [id number] Closed 05/04/2020 04/29/2021 12 12 Encounter Details Date Type Department Care Team (Late st Contact Info) Description 10/19/2020 1:54 PM CDT - 10/19/2020 11:59 PM CDT Hospital Encounter [facility] Medical [facility] - Rheumatology [address] [place] [address] Gloria Smith MD [facility] [place] [address] Discharge Disposition: Home or Self [...] Sahu RN - 10/19/2020 2:40 PM CDT [place] Rheumatology Post Infusion instructions [...] through Sunday 9-5 call the office at [phone] After hours or on the weekend call the exchange at [phone] If you have had lab work done [...] have chosen [facility] as your provider. Jody Sahu RN documented in this encounter Medications at Time of Discharge Medication Sig Dispensed Refills Start Date End Date atorvastatin (LIPITOR) 40 MG tablet Take 1 (one) tablet by mouth at bedtime zlioizrglhr-jurj-oed ysorb, PF, 0.5-1-0.5 % SOLN Instill 1 [...] - 10/19/2020 2:38 PM CDT JOSE Deng [id number] 10/19/2020 Diagnosis: Rheumatoid arthritis without rheumatoid factor, multiple sites [M06.09]. Pt denies symptoms of infection or antibiotic use, no open wounds, or recent surgery, or plans for surgery in the next couple of weeks. Pt is aware that we use the 0-10 pain scale to assess discomfort. 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 front office assistant pt signs consent for treatment for [...] st Contact Info) Description 06/03/2024 1:00 PM HARDWARE DEVELOPER Appointment [facility] - Rheumatology [address] [place] [address] 06/03/2024 2:00 PM HARDWARE DEVELOPER Office Visit [facility] - Rheumatology [address] [place] [address] Gloria Smith MD [address] [place] [phone] documented as of this encounter Visit [...] mL/hr documented in this encounter Care Teams Farm Equipment Service Technician Relationship Specialty Start Date End Date Tomas Hyman MD [address] [place] [address] PCP - General Family Medicine 09/05/18 Isidro Heredia MD Rheumatology 02/09/11 documented as of this encounter
--- OUTSIDE RECORDS SUMMARY | 2024-05-10 10:19 | XMS_ITS | Encounter Summary ---
Author Organization [facility] Address [address] [place] [address] Care Team Providers Care Aviation Survival Technician Name Role Phone Isidro Heredia MD Unavailable [phone] Tomas Hyman MD Primary Care Provider [phone] Reason for Visit * Treatment (Routine) - Closed Specialty Diagnoses / Procedures Referred By Contact Referred To Contact Infusion Therapy Nurse / Rheumatology Diagnoses Rheumatoid arthritis without rheumatoid factor, multiple sites (HCC) Procedures [place] INFLIXIMAB INJECTION Gloria Smith MD [address] [place] [address] [facility] [address] [address] Referral ID Status Reason Start Date Expiration Date Visits Re quested Visits Authorized [id number] Closed 05/04/2020 04/29/2021 12 12 Encounter Details Date Type Department Care Team (Late st Contact Info) Description 09/21/2020 12:46 PM CDT - 09/21/2020 11:59 PM CDT Hospital Encounter [facility] Medical [facility] - Rheumatology [address] [place] [address] Gloria Smith MD [facility] [place] [address] Discharge Disposition: Home or Self [...] Sahu RN - 09/21/2020 1:37 PM CDT [facility] Rheumatology Post Infusion instructions [...] through Sunday 9-5 call the office at [phone] After hours or on the weekend call the exchange at [phone] If you have had lab work done [...] 1 (one) tablet by mouth at bedtime memreeajqja-lhig-fzv ysorb, PF, 0.5-1-0.5 % SOLN Instill 1 [...] - 09/21/2020 1:32 PM CDT JOSE Deng [id number] 09/21/2020 Diagnosis: Rheumatoid arthritis without rheumatoid factor, [...] st Contact Info) Description 06/03/2024 1:00 PM TANKER TRUCK DRIVER Appointment [facility] - Rheumatology [address] [place] [phone] 06/03/2024 2:00 PM TANKER TRUCK DRIVER Office Visit [facility] - Rheumatology [address] [place] [address] Gloria Smith MD [address] [place] [phone] documented as of this encounter Visit Diagnoses [...] mL/hr documented in this encounter Care Teams Aviation Survival Technician Relationship Specialty Start Date End Date Tomas Hyman MD [address] [place] [address] PCP - General Family Medicine 09/05/18 Isidro Heredia MD Rheumatology 02/09/11 documented as of this encounter
--- OUTSIDE RECORDS SUMMARY | 2024-05-10 10:19 | XMS_ITS | Encounter Summary ---
Author Organization [facility] Address [address] [facility] [place] [address] Care Team Providers Care Business Process Specialist Name Role Phone Isidro Heredia MD Unavailable [phone] Tomas Hyman MD Primary Care Provider [phone] Reason for Visit * Reason Comments Establish Care right hand Encounter Details Date Type Department Care Team (Late st Contact Info) Description 05/10/2020 9:45 AM PAINTER MIRROR Office Visit [facility] Orthopedics [address] [place] [phone] Nini Han MD [address] [place] [phone] Dupuytren's contracture (Primary Dx); Hand pain, [...] COVID-19? No / Unsure 05/04/2020 2:08 PM PAINTER MIRROR documented as of this encounter Last Filed Vital Signs Vital Sign Reading Time Taken Comments Blood Pressure - - Pulse - - Temperature - - Respiratory Rate - - Oxygen Saturation - - Inhaled Oxygen Concentration - - Weight 102.1 kg (225 lb) 05/10/2020 10:26 AM PAINTER MIRROR Height 177.8 cm (5' 10 ) 05/10/2020 10:26 AM PAINTER MIRROR Body Mass Index 32.28 05/10/2020 10:26 AM PAINTER MIRROR documented in this encounter Progress Notes * Eryn Matos - 05/10/2020 10:25 AM CST Right hand TER MIRROR documented in this encounter H&P Notes * [...] or problems. Nini Han M.D. CK/MedQ #: [id number] cc: Tomas Hyman TER MIRROR documented in this encounter Procedure Notes * Mora Delgado RT(R) - 05/10/2020 10:38 AM CSTAssociated Order(s): XR HAND RIGHT 3VW OR MORE See chart for xray results TER MIRROR documented in this encounter Plan of Treatment Upcoming Encounters Date Type Department Care Team (Late st Contact Info) Description 06/03/2024 1:00 PM PAINTER MIRROR Appointment [facility] - Rheumatology [address] [place] [address] 06/03/2024 2:00 PM PAINTER MIRROR Office Visit [facility] - Rheumatology [address] [place] [address] Gloria Smith MD [address] [place] [phone] documented as of this encounter Procedures Procedure Name Priority Date/Time Associated Diagnosis Comments XR HAND RIGHT 3VW OR MORE Routine 05/10/2020 10:37 AM PAINTER MIRROR Hand pain, right documented in this encounter Results * XR HAND RIGHT 3VW OR MORE (05/10/2020 10:37 AM PAINTER MIRROR) Anatomical Region Laterality Modality Wrist / Hand Computed Radiogr aphy Narrative 05/10/2020 10:38 AM PAINTER MIRROR Mora Delgado, RT(R) ? 05/10/2020 11:39 AM See chart for xray results Nini Han MD DIAGNOSTIC IMAGING ORDERABLES documented in this encounter Visit Diagnoses Diagnosis Dupuytren's contracture- Primary Contracture of palmar fascia Hand pain, right Pain in limb Hand pain, right Pain in limb documented in this encounter Care Teams Business Process Specialist Relationship Specialty Start Date End Date Tomas Hyman MD [address] [facility] [address] [place] [address] PCP - General Family Medicine 09/05/18 Isidro Heredia MD Rheumatology 02/09/11 documented as of this encounter
--- OUTSIDE RECORDS SUMMARY | 2024-05-10 10:19 | XMS_ITS | Encounter Summary ---
Author Organization [facility] Address [address] [facility] [place] [address] Care Team Providers Care Head Of Marketing Name Role Phone Isidro Heredia MD Unavailable [phone] Tomas Hyman MD Primary Care Provider [phone] Reason for Visit * Treatment (Routine) - Closed Specialty Diagnoses / Procedures Referred By Contact Referred To Contact Infusion Therapy Nurse / Rheumatology Diagnoses Rheumatoid arthritis without rheumatoid factor, multiple sites (HCC) Procedures [place] INFLIXIMAB INJECTION Gloria Smith MD [address] [place] [address] [facility] [address] [address] Referral ID Status Reason Start Date Expiration Date Visits Re quested Visits Authorized [id number] Closed 05/04/2020 04/29/2021 12 12 Encounter Details Date Type Department Care Team (Late st Contact Info) Description 08/24/2020 10:53 AM CDT - 08/24/2020 11:59 PM CDT Hospital Encounter [facility] Medical [facility] - Rheumatology [address] [place] [address] Gloria Smith MD [facility] [place] [address] Discharge Disposition: Home or Self [...] Body Mass Index 34.52 06/29/2020 12:56 PM SEAMSTRESS FITTER documented in this encounter Discharge Instructions * Discharge Instructions* Jody Sahu RN - 08/24/2020 11:10 AM CDT [place] Rheumatology Post Infusion instructions [...] through Sunday 9-5 call the office at [phone] After hours or on the weekend call the exchange at [phone] If you have had lab work done [...] 1 (one) tablet by mouth at bedtime xjrummvflua-kiwo-azm ysorb, PF, 0.5-1-0.5 % SOLN Instill 1 [...] - 08/24/2020 11:34 AM CDT JOSE Deng [id number] 08/24/2020 Diagnosis: Rheumatoid arthritis without rheumatoid factor, [...] st Contact Info) Description 06/03/2024 1:00 PM SEAMSTRESS FITTER Appointment [facility] - Rheumatology [address] [place] [address] [phone] 06/03/2024 2:00 PM SEAMSTRESS FITTER Office Visit [facility] - Rheumatology [address] [place] [address] Gloria Smith MD [address] [place] [phone] documented as of this encounter Visit Diagnoses [...] mL/hr documented in this encounter Care Teams Head Of Marketing Relationship Specialty Start Date End Date Tomas Hyman MD [address] [place] [address] PCP - General Family Medicine 09/05/18 Isidro Heredia MD Rheumatology 02/09/11 documented as of this encounter
--- OUTSIDE RECORDS SUMMARY | 2024-05-10 10:19 | XMS_ITS | Encounter Summary ---
Author Organization [facility] Address [address] [facility] [place] [address] Care Team Providers Care Foreign Language Interpreter Name Role Phone Isidro Heredia MD Unavailable [phone] Tomas Hyman MD Primary Care Provider [phone] Reason for Visit * Reason Onset Date Comments MEDICATION REFILL 10/23/2019 Encounter Details Date Type Department Care Team (Late st Contact Info) Description 10/23/2019 Refill [facility] - Rheumatology [address] [place] [address] Gloria Smith MD [address] [place] [phone] MEDICATION REFILL Social History Tobacco Use [...] st Contact Info) Description 06/03/2024 1:00 PM CORRESPONDENCE REVIEW CLERK Appointment [facility] - Rheumatology [address] [place] [address] [phone] 06/03/2024 2:00 PM CORRESPONDENCE REVIEW CLERK Office Visit [facility] - Rheumatology [address] [place] [address] Gloria Smith MD [address] [place] [phone] documented as of this encounter Visit Diagnoses Not on filedocumented in this encounter Care Teams Foreign Language Interpreter Relationship Specialty Start Date End Date Tomas Hyman MD [address] [facility] [address] [place] [address] PCP - General Family Medicine 09/05/18 Isidro Heredia MD Rheumatology 02/09/11 documented as of this encounter
--- OUTSIDE RECORDS SUMMARY | 2024-05-10 10:19 | XMS_ITS | Encounter Summary ---
Author Organization [facility] Address [address] [facility] [place] [address] Care Team Providers Care Primer Supervisor Name Role Phone Isidro Heredia MD Unavailable [phone] Tomas Hyman MD Primary Care Provider [phone] Reason for Visit * Reason Onset Date Comments Question 04/08/2020 Encounter Details Date Type Department Care Team (Late st Contact Info) Description 04/08/2020 Telephone [facility] Orthopedics [address] [place] [phone] Nini Han MD [address] [place] [phone] Question Social History Tobacco Use Types [...] COVID-19? No / Unsure 04/06/2020 1:43 PM MAJOR LEAGUE BASEBALL PLAYER documented as of this encounter Miscellaneous Notes * Telephone Encounter - Eryn Matos - 04/08/2020 12:30 PM CST LEFT A MESSAGE ASKING CHALINO CASEY TO RETURN MY CALL TO SCHEDULE AN APPOINTMENT R LEAGUE BASEBALL PLAYER * Telephone Encounter - Eryn Matos Shahnaz - 04/08/2020 12:30 PM CST ----- Message from Gloria Smith MD sent at 04/06/2020 3:27 PM MAJOR LEAGUE BASEBALL PLAYER ----- Regarding: referral to dr Ortega Referring him to Dr. Ortega. Dx: right palm ganglion cyst. R LEAGUE BASEBALL PLAYER documented in this encounter Plan of Treatment Upcoming Encounters Date Type Department Care Team (Late st Contact Info) Description 06/03/2024 1:00 PM MAJOR LEAGUE BASEBALL PLAYER Appointment [facility] - Rheumatology [address] [place] [address] 06/03/2024 2:00 PM MAJOR LEAGUE BASEBALL PLAYER Office Visit [facility] - Rheumatology [address] [place] [address] Gloria Smith MD [address] [place] [phone] documented as of this encounter Visit Diagnoses Not on filedocumented in this encounter Care Teams Primer Supervisor Relationship Specialty Start Date End Date Tomas Hyman MD [address] [facility] [address] [place] [address] PCP - General Family Medicine 09/05/18 Isidro Heredia MD Rheumatology 02/09/11 documented as of this encounter
--- OUTSIDE RECORDS SUMMARY | 2024-05-10 10:19 | XMS_ITS | Encounter Summary ---
Author Organization [facility] Address [address] [place] [address] Care Team Providers Care Immigration Officer Name Role Phone Isidro Heredia MD Unavailable Tomas Hyman MD Primary Care Provider [phone] Reason for Referral * Auth/Cert (Routine) - Incomplete Specialty Diagnoses / Procedures Referred By Contsarahi t Referred To Contact Diagnoses Rheumatoid arthritis of multiple sites with negative rheumatoid factor (HCC) Procedures IN DRAIN/INJECT LARGE JOINT/BURSA Gloria Dillon MD [address] [place] [address] Referral ID Status Reason Start Date Expiration Date V isits Requested Visits Authorized [id number] Incomplete 08/29/2019 02/25/2020 1 1 Reason for Visit * Reason Comments Arthritis follow up Encounter Details Date Type Department Care Team (Late st Contact Info) Description 08/29/2019 11:40 AM CDT Video Visit [facility] [facility] - Rheumatology [address] [place] [address] Gloria Dillon MD [address] [place] [address] Rheumatoid arthritis of multiple sites [...] of motion is limited because ofpain. Hand strategic planning specialist is decreased. LABORATORY: Recent Labs Component Name [...] Contact Info) Description 06/03/2024 1:00 PM PROCESS AUTOMATION ENGINEER Appointment [facility] - Rheumatology [address] [place] [address] [phone] 06/03/2024 2:00 PM PROCESS AUTOMATION ENGINEER Office Visit [facility] - Rheumatology [address] [place] [address] [phone] Gloria Dillon MD [address] [place] [phone] documented as of this encounter Procedures Procedure [...] Agency Comment Lab Testing performed at: [facility] [address] [place] [address] ?? [facility] [id number] Gloria Dillon MD LAB - CHEMISTRY [facility] INSURANCE BILL [address] [place] [address] * (ABNORMAL) COMPREHENSIVE METABOLIC PANEL (08/29/2019 12:45 [...] Resulting Agency Comment Lab Testing performed at: [facility] ??[facility] [id number] Gloria Dillon MD LAB - CHEMISTRY MARII ARAUJO [facility] INSURANCE BILL [address] [place] [address] * (ABNORMAL) CBC WITH DIFFERENTIAL (08/29/2019 12:45 [...] Resulting Agency Comment Lab Testing performed at: [facility] [address] [facility] ??[facility] [id number] Gloria Dillon MD LAB - HEMATOLOGY ORD ERABLES [facility] INSURANCE BILL [address] [place] [address] documented in this encounter Visit Diagnoses Diagnosis [...] Shoulder documented in this encounter Care Teams Immigration Officer Relationship Specialty Start Date End Date Tomas Hyman MD [address] [address] [address] [place] [address] PCP - General Family Medicine 09/05/18 Isidro Heredia MD Rheumatology 02/09/11 documented as of this encounter
--- OUTSIDE RECORDS SUMMARY | 2024-05-10 10:19 | XMS_ITS | Encounter Summary ---
Author Organization [facility] Address [address] [facility] [place] [address] Care Team Providers Care Band Bias Machine Operator Name Role Phone Isidro Heredia MD Unavailable Tomas Hyman MD Primary Care Provider [phone] Reason for Visit * Treatment (Routine) - Closed Specialty Diagnoses / Procedures Referred By Lawrence shah Referred To Contact Infusion Therapy Nurse Diagnoses Rheumatoid arthritis without rheumatoid factor, multiple sites (HCC) Procedures [place] INFLIXIMAB INJECTION Gloria Smith MD [address] [place] [address] [address] Referral ID Status Reason Start Date Expiration Date Visits Re quested Visits Authorized [id number] Closed 05/09/2019 04/29/2020 1 12 Encounter Details Date Type Department Care Team (Late st Contact Info) Description 02/06/2020 11:33 AM CDT - 02/06/2020 1:40 PM CDT Hospital Encounter [facility] Medical [facility] - Rheumatology [address] [place] [address] Gloria Smith MD [facility] [address] [place] [address] Discharge Disposition: Home or Self [...] Sahu RN - 02/06/2020 11:55 AM CDT [place] Rheumatology Post Infusion instructions [...] through Sunday 9-5 call the office at [phone] After hours or on the weekend call the exchange at [phone] If you have had lab work done [...] [facility] as your provider. Jody Sahu, RN documented in this encounter Medications at Time of Discharge Medication Sig Dispensed Refills Start Date End Date atorvastatin (LIPITOR) 40 MG tablet Take 1 (one) tablet by mouth at bedtime yrnhohznaik-ofzk-kk lysorb, PF, 0.5-1-0.5 % SOLN Instill 1 [...] - 02/06/2020 12:00 PM CDT JOSE Deng [id number] 02/06/2020 Diagnosis: Rheumatoid arthritis without rheumatoid factor, multiple sites [M06.09]. Pt denies symptoms of infection or antibiotic use, no open wounds, or recent surgery, or plans for surgery in the next couple of weeks. Pt is aware that we use the 0-10 pain scale to assess discomfort. 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 front end developer designer pt signs consent for treatment for this [...] Contact Info) Description 06/03/2024 1:00 PM MEDICAL DELIVERY TECHNICIAN Appointment [facility] - Rheumatology [address] [place] [address] [phone] 06/03/2024 2:00 PM MEDICAL DELIVERY TECHNICIAN Office Visit [facility] - Rheumatology [address] [place] [address] Gloria Smith MD [address] [place] [phone] documented as of this encounter Visit Diagnoses [...] previously received three standard infliximab infusions at [facility], -Patient has no history of infusion-related hypersensitivity [...] mL/hr documented in this encounter Care Teams Band Bias Machine Operator Relationship Specialty Start Date End Date Tomas Hyman MD [address] [place] [address] PCP - General Family Medicine 09/05/18 Isidro Heredia MD Rheumatology 02/09/11 documented as of this encounter
--- OUTSIDE RECORDS SUMMARY | 2024-05-10 10:19 | XMS_ITS | Encounter Summary ---
Author Organization [facility] Address [address] [place] [address] Care Team Providers Care Soil Surveyor Name Role Phone Isidro Heredia MD Unavailable [phone] Tomas Hyman MD Primary Care Provider [phone] Reason for Visit * Treatment (Routine) - Closed Specialty Diagnoses / Procedures Referred By Lawrence shah Referred To Contact Infusion Therapy Nurse Diagnoses Rheumatoid arthritis without rheumatoid factor, multiple sites (HCC) Procedures [place] INFLIXIMAB INJECTION Gloria Smith MD [address] [place] [address] [address] Referral ID Status Reason Start Date Expiration Date Visits Re quested Visits Authorized [id number] Closed 05/09/2019 04/29/2020 1 12 Encounter Details Date Type Department Care Team (Late st Contact Info) Description 04/06/2020 12:46 PM APPAREL DESIGNER - 04/06/2020 11:59 PM APPAREL DESIGNER Hospital Encounter [facility] Medical [facility] - Rheumatology [address] [place] [address] Gloria Smith MD [address] [place] [phone] Discharge Disposition: Home or Self Care [...] COVID-19? No / Unsure 04/06/2020 1:43 PM APPAREL DESIGNER documented as of this encounter Last Filed Vital Signs Vital Sign Reading Time Taken Comments Blood Pressure 138/75 04/06/2020 1:06 PM APPAREL DESIGNER Pulse 74 04/06/2020 1:06 PM APPAREL DESIGNER Temperature 36.2 ??C (97.2 ??F) 04/06/2020 1:06 PM CS T Respiratory Rate 18 04/06/2020 1:06 PM APPAREL DESIGNER Oxygen Saturation - - Inhaled Oxygen Concentration - - Weight 103 kg (227 lb) 04/06/2020 1:06 PM APPAREL DESIGNER Height - - Body Mass Index 32.57 11/10/2019 10:34 AM CDT documented in this encounter Discharge Instructions * Discharge Instructions* Jody Sahu RN - 04/06/2020 1:12 PM APPAREL DESIGNER IN Rheumatology Post Infusion instructions You have [...] through Sunday 9-5 call the office at [phone] After hours or on the weekend call the exchange at [phone] If you have had lab work done [...] Hospital as your provider. Jody Sahu, RN REL DESIGNER documented in this encounter Medications at Time of Discharge Medication Sig Dispensed Refills Start Date End Date atorvastatin (LIPITOR) 40 MG tablet Take 1 (one) tablet by mouth at bedtime jhtzdcmstkr-bflw-cyr ysorb, PF, 0.5-1-0.5 % SOLN Instill 1 [...] - 04/06/2020 1:37 PM CST JOSE Deng [id number] 04/06/2020 Diagnosis: Rheumatoid arthritis without rheumatoid factor, [...] Next treatment? 4 weeks Jody Sahu RN REL DESIGNER documented in this encounter Plan of Treatment Upcoming Encounters Date Type Department Care Team (Late st Contact Info) Description 06/03/2024 1:00 PM APPAREL DESIGNER Appointment [facility] - Rheumatology [address] [place] [address] 06/03/2024 2:00 PM APPAREL DESIGNER Office Visit [facility] - Rheumatology [address] [place] [address] Gloria Smith MD [address] [place] [phone] documented as of this encounter Visit [...] filter. $ New Bag/Syringe 04/06/2020 1:23 PM APPAREL DESIGNER 600 mg 135 mL/hr documented in this encounter Care Teams Soil Surveyor Relationship Specialty Start Date End Date Tomas Hyman MD [address] [place] [address] PCP - General Family Medicine 09/05/18 Isidro Heredia MD Rheumatology 02/09/11 documented as of this encounter
--- OUTSIDE RECORDS SUMMARY | 2024-05-10 10:19 | XMS_ITS | Encounter Summary ---
Author Organization [facility] Address [address] [place] [address] Care Team Providers Care Shipping Lead Name Role Phone Isidro Heredia MD Unavailable Tomas Hyman MD Primary Care Provider [phone] Encounter Details Date Type Department Care Team [...] COVID-19? No / Unsure 05/04/2020 2:08 PM TRAP OPERATOR documented as of this encounter Plan of Treatment Upcoming Encounters Date Type Department Care Team (Late st Contact Info) Description 06/03/2024 1:00 PM TRAP OPERATOR Appointment [facility] - Rheumatology [address] [place] [address] 06/03/2024 2:00 PM TRAP OPERATOR Office Visit [facility] - Rheumatology [address] [place] [address] Gloria Smith MD [address] [place] [phone] documented as of this encounter Visit Diagnoses Not on filedocumented in this encounter Care Teams Shipping Lead Relationship Specialty Start Date End Date Tomas Hyman MD [address] [facility] [address] [place] [address] PCP - General Family Medicine 09/05/18 Isidro Heredia MD Rheumatology 02/09/11 documented as of this encounter
--- OUTSIDE RECORDS SUMMARY | 2024-05-10 10:19 | XMS_ITS | Encounter Summary ---
Author Organization [facility] Address [address] [facility] [place] [address] Care Team Providers Care Rate Reviewer Name Role Phone Isidro Heredia MD Unavailable [phone] Tomas Hyman MD Primary Care Provider [phone] Reason for Visit * Reason Onset Date Comments MEDICATION REFILL 01/21/2020 Encounter Details Date Type Department Care Team (Late st Contact Info) Description 01/21/2020 Refill [facility] - Rheumatology [address] [place] [address] Gloria Smith MD [address] [place] [phone] MEDICATION REFILL Social History Tobacco Use [...] st Contact Info) Description 06/03/2024 1:00 PM BILLING SERVICES MANAGER Appointment [facility] - Rheumatology [address] [place] [address] [phone] 06/03/2024 2:00 PM BILLING SERVICES MANAGER Office Visit [facility] - Rheumatology [address] [place] [address] [phone] Gloria Smith MD [address] [place] [phone] documented as of this encounter Visit Diagnoses Not on filedocumented in this encounter Care Teams Rate Reviewer Relationship Specialty Start Date End Date Tomas Hyman MD [address] [facility] [address] [place] [address] PCP - General Family Medicine 09/05/18 Isidro Heredia MD Rheumatology 02/09/11 documented as of this encounter
--- OUTSIDE RECORDS SUMMARY | 2024-05-10 10:19 | XMS_ITS | Encounter Summary ---
Author Organization [facility] Address [address] [facility] [address] Care Team Providers Care Refinery Operator Helper Crude Unit Name Role Phone Isidro Heredia MD Unavailable [phone] Tomas Hyman MD Primary Care Provider [phone] Encounter Details Date Type Department Care Team (Late Contact Info) Description 09/17/2019 Orders Only [facility] - Rheumatology [address] [place] [address] Gloria Smith MD [address] [place] [phone] Rheumatoid arthritis of multiple sites with [...] (Late Contact Info) Description 06/03/2024 1:00 PM MICE RAISER Appointment [facility] - Rheumatology [address] [place] [address] 06/03/2024 2:00 PM MICE RAISER Office Visit [facility] - Rheumatology [address] [place] [address] Gloria Smith MD [address] [place], [place] [address] [phone] documented as of this encounter Procedures Procedure [...] Resulting Agency Comment Lab Testing performed at: [facility] [address] ?? [place] [id number] Gloria Smith MD LAB - CHEMISTRY MARII ARAUJO [facility] INSURANCE BILL [address] [place] [address] documented in this encounter Visit Diagnoses Diagnosis Rheumatoid arthritis of multiple sites with negative rheumatoid factor (HCC) documented in this encounter Care Teams Refinery Operator Helper Crude Unit Relationship Specialty Start Date End Date Tomas Hyman MD [address] [place] [address] PCP - General Family Medicine 09/05/18 Isidro Heredia MD Rheumatology 02/09/11 documented as of this encounter
--- OUTSIDE RECORDS SUMMARY | 2024-05-10 10:19 | XMS_ITS | Encounter Summary ---
Author Organization [facility] Address [address] [facility] [place] [address] Care Team Providers Care Manager Steel Name Role Phone Isidro Heredia MD Unavailable [phone] Tomas Hyman MD Primary Care Provider [phone] Encounter Details Date Type Department Care Team (Late st Contact Info) Description 02/06/2020 1:41 PM CDT - 02/06/2020 11:59 PM CDT Hospital Encounter [facility] - Medical Imaging [address] [facility] [place] [address] Gloria Smith MD [address] [place] [phone] Discharge Disposition: Home or Self Care Social [...] 1 (one) tablet by mouth at bedtime wpoarwihrip-nkpp-fx lysorb, PF, 0.5-1-0.5 % SOLN Instill 1 [...] Contact Info) Description 06/03/2024 1:00 PM ELECTRONICS SUPERVISOR Appointment [facility] - Rheumatology [address] [place] [address] 06/03/2024 2:00 PM ELECTRONICS SUPERVISOR Office Visit [facility] - Rheumatology [address] [place] [address] Gloria Smith MD [address] [place] [phone] documented as of this encounter Procedures Procedure Name Priority Date/Time Associated Diagnosis Comments XR SI JOINTS 3VW OR MORE Routine 02/06/2020 1:46 PM CDT Rheumatoid arthritis of multiple sites with negative rheumatoid factor (HCC) documented in this encounter Results * XR SI JOINTS 3VW OR MORE (02/06/2020 1:46 PM CDT) Anatomical Region Laterality Modality Pelvis, Lower Extremity [facility] Imaging 02/06/2020 2:55 PM CDT Impressions [...] documented in this encounter Care Teams Manager Steel Relationship Specialty Start Date End Date Tomas Hyman MD [address] [place] [address] PCP - General Family Medicine 09/05/18 Isidro Heredia MD Rheumatology 02/09/11 documented as of this encounter
--- OUTSIDE RECORDS SUMMARY | 2024-05-10 10:19 | XMS_ITS | Encounter Summary ---
Author Organization [facility] Address [address] [facility] [place] [address] Care Team Providers Care Administrative Analyst Name Role Phone Isidro Heredia MD Unavailable [phone] Tomas Hyman MD Primary Care Provider [phone] Reason for Visit * Reason Onset Date Comments MEDICATION REFILL 04/05/2020 Encounter Details Date Type Department Care Team (Late st Contact Info) Description 04/05/2020 Refill [facility] - Rheumatology [address] [place] [address] Gloria Smith MD [address] [place] [phone] MEDICATION REFILL Social History Tobacco Use [...] (Late Contact Info) Description 06/03/2024 1:00 PM DOCTORATE OF CHIROPRACTIC Appointment [facility] - Rheumatology [address] [place] [address] 06/03/2024 2:00 PM DOCTORATE OF CHIROPRACTIC Office Visit [facility] - Rheumatology [address] [place] [address] Gloria Smith MD [address] [place] [address] documented as of this encounter Visit Diagnoses Not on filedocumented in this encounter Care Teams Administrative Analyst Relationship Specialty Start Date End Date Tomas Hyman MD [address] [place] [address] PCP - General Family Medicine 09/05/18 Isidro Heredia MD Rheumatology 02/09/11 documented as of this encounter
--- OUTSIDE RECORDS SUMMARY | 2024-05-10 10:19 | XMS_ITS | Encounter Summary ---
Author Organization [facility] Address [address] [facility] [place] [address] Care Team Providers Care Electronic Induction Hardener Name Role Phone Isidro Heredia MD Unavailable Tomas Hyman MD Primary Care Provider [phone] Encounter Details Date Type Department Care Team [...] Contact Info) Description 06/03/2024 1:00 PM JIG OPERATOR Appointment [facility] - Rheumatology [address] [place] [address] 06/03/2024 2:00 PM JIG OPERATOR Office Visit [facility] - Rheumatology [address] [place] [address] Gloria Smith MD [address] [place] [phone] documented as of this encounter Visit Diagnoses Not on filedocumented in this encounter Care Teams Electronic Induction Hardener Relationship Specialty Start Date End Date Tomsa yHman MD [address] [facility] [address] [place] [address] PCP - General Family Medicine 09/05/18 Isidro Heredia MD Rheumatology 02/09/11 documented as of this encounter
--- OUTSIDE RECORDS SUMMARY | 2024-05-10 10:19 | XMS_ITS | Encounter Summary ---
Author Organization [facility] Address [address] [facility] [place] [address] Care Team Providers Care Crime Analyst Name Role Phone Isidro Heredia MD Unavailable [phone] Tomas Hyman MD Primary Care Provider [phone] Reason for Visit * Reason Onset Date Comments Question 04/06/2020 Encounter Details Date Type Department Care Team (Late st Contact Info) Description 04/06/2020 Telephone [facility] Orthopedics [address] [place] [address], [address] [address] Nini Han MD [address] [place] [address] Question Social History Tobacco Use [...] COVID-19? No / Unsure 04/06/2020 1:43 PM GRANULATOR TENDER documented as of this encounter Miscellaneous Notes * Telephone Encounter - Eryn Matos - 04/06/2020 3:48 PM CST LEFT 2 MESSAGES ASKING CHALINO CASEY TO CALL ME BACK TO SCHEDULE AN APPOINTMENT ULATOR TENDER * Telephone Encounter - Eryn Matos Shahnaz - 04/06/2020 3:47 PM CST ----- Message from Gloria Smith MD sent at 04/06/2020 3:27 PM GRANULATOR TENDER ----- Regarding: referral to dr Ortega Referring him to Dr. Ortega. Dx: right palm ganglion cyst. ULATOR TENDER documented in this encounter Plan of Treatment Upcoming Encounters Date Type Department Care Team (Late st Contact Info) Description 06/03/2024 1:00 PM GRANULATOR TENDER Appointment [facility] - Rheumatology [address] [place] [address] 06/03/2024 2:00 PM GRANULATOR TENDER Office Visit [facility] - Rheumatology [address] [place] [address] Gloria Smith MD [address] [place] [phone] documented as of this encounter Visit Diagnoses Not on filedocumented in this encounter Care Teams Crime Analyst Relationship Specialty Start Date End Date Tomas Hyman MD [address] [facility] [address] [place] [address] PCP - General Family Medicine 09/05/18 Isidro Heredia MD Rheumatology 02/09/11 documented as of this encounter
--- OUTSIDE RECORDS SUMMARY | 2024-05-10 10:19 | XMS_ITS | Encounter Summary ---
Author Organization [facility] Address [address] [place] [address] Care Team Providers Care Salesman/Owner Name Role Phone Isidro Heredia MD Unavailable [phone] Tomas Hyman MD Primary Care Provider [phone] Encounter Details Date Type Department Care Team (Late st Contact Info) Description 06/29/2020 1:00 PM SPIRAL WINDING MACHINE HELPER Office Visit [facility] Medical [facility] - Rheumatology [address] [place] [address] Gloria Smith MD [address] [place] [address] Rheumatoid arthritis of multiple sites with [...] COVID-19? No / Unsure 06/29/2020 11:44 AM SPIRAL WINDING MACHINE HELPER documented as of this encounter Last Filed Vital Signs Vital Sign Reading Time Taken Comments Blood Pressure 130/74 06/29/2020 12:56 PM SPIRAL WINDING MACHINE HELPER Pulse 79 06/29/2020 12:56 PM SPIRAL WINDING MACHINE HELPER Temperature 36.6 ??C (97.9 ??F) 06/29/2020 12:[address] Respiratory Rate - - Oxygen Saturation - - Inhaled Oxygen Concentration - - Weight 105.7 kg (233 lb) 06/29/2020 12:56 PM SPIRAL WINDING MACHINE HELPER Height 177.8 cm (5' 10 ) 06/29/2020 12:56 PM SPIRAL WINDING MACHINE HELPER Body Mass Index 33.43 06/29/2020 12:56 PM SPIRAL WINDING MACHINE HELPER documented in this encounter Progress Notes [...] bone density scan - took alendronate from [id number]. [place] WINDING MACHINE HELPER documented in this encounter Plan of Treatment Upcoming Encounters Date Type Department Care Team (Late st Contact Info) Description 06/03/2024 1:00 PM SPIRAL WINDING MACHINE HELPER Appointment [facility] - Rheumatology [address] [place] [address] [phone] 06/03/2024 2:00 PM SPIRAL WINDING MACHINE HELPER Office Visit [facility] - Rheumatology [address] [place] [address] Gloria Smith MD [address] [place] [phone] documented as of this encounter Procedures Procedure Name Priority Date/Time Associated Diagnosis Comments C-REACTIVE PROTEIN Routine 06/29/2020 2: 10 PM SPIRAL WINDING MACHINE HELPER Rheumatoid arthritis of multiple sites with negative rheumatoid factor (HCC) ERYTHROCYTE SEDIMENTATION RATE Routine 06/29/2020 2:10 PM SPIRAL WINDING MACHINE HELPER Rheumatoid arthritis of multiple sites with negative rheumatoid factor (HCC) CBC W AUTO DIFFERENTIAL Routine 06/29/2020 2:10 PM SPIRAL WINDING MACHINE HELPER Rheumatoid arthritis of multiple sites with negative rheumatoid factor (HCC) COMPREHENSIVE METABOLIC PANEL Routine 06/29/2020 2:10 PM SPIRAL WINDING MACHINE HELPER Rheumatoid arthritis of multiple sites with negative rheumatoid factor (HCC) documented in this encounter Results * C-REACTIVE PROTEIN (06/29/2020 2:10 PM SPIRAL WINDING MACHINE HELPER) C-Reactive Protein <0.20 <=0.50 mg/dL [facility] INSURANCE BILL Blood BLOOD SPECIMEN / Unknown 06/29/2020 2:10 PM SPIRAL WINDING MACHINE HELPER 06/29/2020 Narrative Resulting Agency Comment Lab Testing performed at: [place] [address] ?? [facility] [id number] Gloria Smith MD LAB - CHEMISTRY ORDE RABLES Performing Organization Address City/[facility]/ZIP Co de Phone Number [facility] INSURANCE BILL [address] [place] [address] * ERYTHROCYTE SEDIMENTATION RATE (06/29/2020 2:10 PM SPIRAL WINDING MACHINE HELPER) Erythrocyte Sedimentation Rate Westergren 13 0 - 20 MM/HR [facility] INSURANCE BILL Blood BLOOD SPECIMEN / Unknown 06/29/2020 2:10 PM SPIRAL WINDING MACHINE HELPER 06/29/2020 Narrative Resulting Agency Comment Lab Testing performed at: [address] ?? [facility] [id number] Gloria Smith MD LAB - HEMATOLOGY ORD ERABLES Performing Organization Address City/[facility] [[email or web address]] Co de Phone Number [facility] INSURANCE BILL [address] [place] [address] * COMPREHENSIVE METABOLIC PANEL (06/29/2020 2:10 PM SPIRAL WINDING MACHINE HELPER) Glucose 103 70 - 105 mg/dL [facility] [...] BLOOD SPECIMEN / Unknown 06/29/2020 2:10 PM SPIRAL WINDING MACHINE HELPER 06/29/2020 Narrative Resulting Agency Comment Lab Testing performed at: [facility] [address] [address] [facility] ?? [facility] [id number] Gloria Smith MD LAB - CHEMISTRY MARII ARAUJO [facility] INSURANCE BILL [address] [place] [address] * (ABNORMAL) CBC WITH DIFFERENTIAL (06/29/2020 2:10 PM SPIRAL WINDING MACHINE HELPER) WBC 8.6 4.4 - 10.7 x10E9/L [facility] [...] [facility] INSURANCE BILL Comment:MPV [place] BLOOD ([facility]) 1 1.4 fl 9.4-12.9 Granulocytes % 43.6(L) [...] BLOOD SPECIMEN / Unknown 06/29/2020 2:10 PM SPIRAL WINDING MACHINE HELPER 06/29/2020 Narrative Resulting Agency Comment Lab Testing performed at: [address] ?? 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
--- OUTSIDE RECORDS SUMMARY | 2024-05-10 10:19 | XMS_ITS | Encounter Summary ---
Author Organization [facility] Address [address] [place] [address] Care Team Providers Care Sales Assoc Name Role Phone Isidro Heredia MD Unavailable [phone] Tomas Hyman MD Primary Care Provider [phone] Reason for Visit * Treatment (Routine) - Closed Specialty Diagnoses / Procedures Referred By Contact Referred To Contact Infusion Therapy Nurse / Rheumatology Diagnoses Rheumatoid arthritis without rheumatoid factor, multiple sites (HCC) Procedures [place] INFLIXIMAB INJECTION Gloria Smith MD [address] [place] [address] [facility] [address] [address] Referral ID Status Reason Start Date Expiration Date Visits Re quested Visits Authorized [id number] Closed 05/04/2020 04/29/2021 12 12 Encounter Details Date Type Department Care Team (Late st Contact Info) Description 07/27/2020 11:35 AM CDT - 07/27/2020 11:59 PM CDT Hospital Encounter [facility] Medical [facility] - Rheumatology [address] [place] [address] Gloria Smith MD [facility] [place] [address] Discharge Disposition: Home or Self [...] Body Mass Index 33.86 06/29/2020 12:56 PM HAND LAMINATOR documented in this encounter Discharge Instructions * Discharge Instructions* Jody Sahu RN - 07/27/2020 12:48 PM CDT [place] Rheumatology Post Infusion instructions [...] through Sunday 9-5 call the office at [phone] After hours or on the weekend call the exchange at [phone] If you have had lab work done [...] [facility] as your provider. Jody Sahu, RN documented in this encounter Medications at Time of Discharge Medication Sig Dispensed Refills Start Date End Date atorvastatin (LIPITOR) 40 MG tablet Take 1 (one) tablet by mouth at bedtime mshuvtclppc-jziu-put ysorb, PF, 0.5-1-0.5 % SOLN Instill 1 [...] - 07/27/2020 12:49 PM CDT JOSE Deng [id number] 07/27/2020 Diagnosis: Rheumatoid arthritis without rheumatoid factor, multiple sites [M06.09]. Pt denies symptoms of infection or antibiotic use, no open wounds, or recent surgery, or plans for surgery in the next couple of weeks. Pt is aware that we use the 0-10 pain scale to assess discomfort. 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 lead front end developer pt signs consent for [...] Contact Info) Description 06/03/2024 1:00 PM HAND LAMINATOR Appointment [facility] - Rheumatology [address] [place] [address] 06/03/2024 2:00 PM HAND LAMINATOR Office Visit [facility] - Rheumatology [address] [place] [address] Gloria Smith MD [address] [place] [phone] documented as of this encounter Visit [...] mL/hr documented in this encounter Care Teams Sales Assoc Relationship Specialty Start Date End Date Tomas Hyman MD [address] [place] [address] [address] [place] [address] PCP - General Family Medicine 09/05/18 Isidro Heredia MD Rheumatology 02/09/11 documented as of this encounter
--- OUTSIDE RECORDS SUMMARY | 2024-05-10 10:19 | XMS_ITS | Encounter Summary ---
Author Organization [facility] Address [address] [facility] [place] [address] Care Team Providers Care Quality Checker Name Role Phone Isidro Heredia MD Unavailable [phone] Tomas Hyman MD Primary Care Provider [phone] Reason for Visit * Reason Comments Follow-up Encounter Details Date Type Department Care Team (Late st Contact Info) Description 10/19/2020 2:40 PM CDT Office Visit [facility] - Rheumatology [address] [place] [address] Gloria Smith MD [address] [place] [phone] Rheumatoid arthritis of multiple sites with [...] bone density scan - took alendronate from 0157-2528. documented in this encounter Plan of Treatment Upcoming Encounters Date Type Department Care Team (Late st Contact Info) Description 06/03/2024 1:00 PM SILICA MIXER OPERATOR Appointment [facility] - Rheumatology [address] [place] [address] [phone] 06/03/2024 2:00 PM SILICA MIXER OPERATOR Office Visit [facility] - Rheumatology [address] [place] [address] Gloria Smith MD [address] [place] [phone] documented as of this encounter Procedures Procedure [...] Resulting Agency Comment Lab Testing performed at: [address] ?? [facility] [id number] Gloria Smith MD LAB - CHEMISTRY CALEBE VAN [facility] INSURANCE BILL [address] [place] [address] * CBC WITH DIFFERENTIAL (10/19/2020 3:40 PM CDT) [facility] WBC 9.5 4.4 - 10.7 x10E9/L [facility] [...] x10E9/L [facility] INSURANCE BILL Comment:MPV [place] BLOOD ([facility]) 1 1.3 fl 9.4-12.9 Granulocytes % 49.7 [...] Testing performed at: [facility] [address] [address] ?? [facility] [id number] Gloria Smith MD LAB - HEMATOLOGY ORD ERABLES [facility] INSURANCE BILL [address] [place] [address] documented in this encounter Visit Diagnoses Diagnosis Rheumatoid arthritis of multiple sites with negative rheumatoid factor (HCC)- Primary documented in this encounter Care Teams Quality Checker Relationship Specialty Start Date End Date Tomas Hyman MD [address] [place] [phone] PCP - General Family Medicine 09/05/18 Isidro Heredia MD Rheumatology 02/09/11 documented as of this encounter
--- OUTSIDE RECORDS SUMMARY | 2024-05-10 10:19 | XMS_ITS | Encounter Summary ---
Author Organization [facility] Address [address] [facility] [place] [address] Care Team Providers Care Passenger Agent Name Role Phone Isidro Heredia MD Unavailable [phone] Tomas Hyman MD Primary Care Provider [phone] Encounter Details Date Type Department Care Team [...] st Contact Info) Description 06/03/2024 1:00 PM CONTRACTS ATTORNEY Appointment [facility] - Rheumatology [address] [place] [address] 06/03/2024 2:00 PM CONTRACTS ATTORNEY Office Visit [facility] - Rheumatology [address] [place] [address] Gloria Smith MD [address] [place] [phone] documented as of this encounter Visit Diagnoses Not on filedocumented in this encounter Care Teams Passenger Agent Relationship Specialty Start Date End Date Tomas Hyman MD [address] [facility] [address] [place] [address] PCP - General Family Medicine 09/05/18 Isidro Heredia MD Rheumatology 02/09/11 documented as of this encounter
--- OUTSIDE RECORDS SUMMARY | 2024-05-10 10:19 | XMS_ITS | Encounter Summary ---
Author Organization [facility] Address [address] [facility] [place] [address] Care Team Providers Care Ic Designer Standard Cells Name Role Phone Isidro Heredia MD Unavailable [phone] Tomas Hyman MD Primary Care Provider [phone] Reason for Visit * Reason Comments Arthritis follow up Encounter Details Date Type Department Care Team (Late st Contact Info) Description 02/06/2020 11:40 AM CDT Office Visit [facility] - Rheumatology [address] [place] [address] Gloria Smith MD [address] [place] [phone] Rheumatoid arthritis of multiple sites with [...] bone density scan - took alendronate from 4677-2782. documented in this encounter Plan of Treatment Upcoming Encounters Date Type Department Care Team (Late st Contact Info) Description 06/03/2024 1:00 PM MANAGER RENEWABLE ENERGY Appointment [facility] - Rheumatology [address] [place] [address] 06/03/2024 2:00 PM MANAGER RENEWABLE ENERGY Office Visit [facility] - Rheumatology [address] [place] [address] [phone] Gloria Smith MD [address] [place] [phone] documented as of this encounter Procedures [...] Region Laterality Modality Pelvis, Lower Extremity Radiogra [facility] 02/06/2020 2:55 PM CDT [...] Drug Administration. HLA Lab CLIA ID Number [id number] ? . This test was performed using PCR (Polymerase Chain Reaction)/SSOP (Sequence Specific Oligonucleotide Probes) technique. ??SBT (Sequence Based Typing) and/or SSP (Sequence Specific Primers) may be used as supplemental methods when necessary. ??Please contact [facility] Customer Service at if you have any questions. ? . Director of [facility] Laboratory Dr Frankie Salinas, PhD Blood BLOOD SPECIMEN / Unknown 02/06/2020 1:32 PM CDT 02/06/2020 Narrative Resulting Agency Comment Lab Testing performed at: [place] [address] [facility] ??[facility] [id number] Gloria Smith MD LAB - CHEMISTRY MARII ARAUJO Performing Organization Address City/[facility]/ZIP Co de Phone Number [facility] INSURANCE BILL [address] [place] [address] * C-REACTIVE PROTEIN (02/06/2020 1:32 PM CDT) C-Reactive Protein 0.21 <=0.50 mg/dL [facility] INSURANCE BILL Blood BLOOD SPECIMEN / Unknown 02/06/2020 1:32 PM CDT 02/06/2020 Narrative Resulting Agency Comment Lab Testing performed at: [facility] [place] [address] [address] ?? [facility] [id number] Gloria Smith MD LAB - CHEMISTRY MARII ARAUJO [facility] INSURANCE BILL [address] [place] [address] * ERYTHROCYTE SEDIMENTATION RATE (02/06/2020 1:32 PM CDT) Erythrocyte Sedimentation Rate Westergren 12 0 - 20 MM/HR [facility] INSURANCE BILL Blood BLOOD SPECIMEN / Unknown 02/06/2020 1:32 PM CDT 02/06/2020 Narrative Resulting Agency Comment Lab Testing performed at: [place] [address] [address] ?? [place] [id number] Gloria Smith MD LAB - HEMATOLOGY ORD ERABLES [facility] INSURANCE BILL [address] [place] [address] * (ABNORMAL) COMPREHENSIVE METABOLIC PANEL (02/06/2020 1:32 [...] Resulting Agency Comment Lab Testing performed at: [facility] [address] [address] ?? [facility] [id number] Gloria Smith MD LAB - CHEMISTRY MARII ARAUJO [facility] INSURANCE BILL [address] [place] [address] * (ABNORMAL) CBC WITH DIFFERENTIAL (02/06/2020 1:32 [...] Resulting Agency Comment Lab Testing performed at: [address] ?? 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
--- OUTSIDE RECORDS SUMMARY | 2024-05-10 10:19 | XMS_ITS | Encounter Summary ---
Author Organization [facility] Address [address] [facility] [place] [address] Care Team Providers Care Sock Mender Name Role Phone Isidro Heredia MD Unavailable [phone] Tomas Hyman MD Primary Care Provider [phone] Reason for Visit * Treatment (Routine) - Closed Specialty Diagnoses / Procedures Referred By Lawrence shah Referred To Contact Infusion Therapy Nurse Diagnoses Rheumatoid arthritis without rheumatoid factor, multiple sites (HCC) Procedures [place] INFLIXIMAB INJECTION Gloria Smith MD [address] [place] [address] [facility] [address] [place] [phone] Referral ID Status Reason Start Date Expiration Date Visits Re quested Visits Authorized [id number] Closed 05/09/2019 04/29/2020 1 12 Encounter Details Date Type Department Care Team (Late st Contact Info) Description 08/29/2019 10:00 AM CDT - 08/29/2019 11:59 PM CDT Hospital Encounter [facility] - Rheumatology [address] [facility] [place] [address] Gloria Smith MD [address] [place] [address] Discharge Disposition: Home or Self [...] - 08/29/2019 10:12 AM CDT Discharge Instructions [facility] Rheumatology You have received your infusion treatment [...] through Sunday 9-5 call the office at [phone]. After hours or on the weekend call the exchange at [phone]. If you have had lab work done [...] 1 (one) tablet by mouth at bedtime doovtsvryoc-hdqn-tm lysorb, PF, 0.5-1-0.5 % SOLN Instill 1 [...] - 08/29/2019 10:00 AM CDT JOSE Deng [id number] 08/29/2019 Diagnosis: Rheumatoid arthritis without rheumatoid factor, multiple sites [M06.09]. Pt denies symptoms of infection or antibiotic use, no open wounds, or recent surgery, or plans for surgery in the next couple of weeks. Pt is aware that we use the 0-10 pain scale to assess discomfort. 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 help desk engineer pt signs consent for treatment for [...] st Contact Info) Description 06/03/2024 1:00 PM MANAGED CARE PROVIDER Appointment [facility] - Rheumatology [address] [place] [address] 06/03/2024 2:00 PM MANAGED CARE PROVIDER Office Visit [facility] - Rheumatology [address] [place] [address] Gloria Smith MD [address] [place] [phone] documented as of this encounter Visit [...] previously received three standard infliximab infusions at [facility] -Patient has no history of infusion-related hypersensitivity [...] mL/hr documented in this encounter Care Teams Sock Mender Relationship Specialty Start Date End Date Tomas Hyman MD [address] [place] [address] PCP - General Family Medicine 09/05/18 Isidro Heredia MD Rheumatology 02/09/11 documented as of this encounter
--- OUTSIDE RECORDS SUMMARY | 2024-05-10 10:19 | XMS_ITS | Encounter Summary ---
Author Organization [facility] Address [address] [facility] [place] [address] Care Team Providers Care Lobby Concierge Name Role Phone Isidro Heredia MD Unavailable [phone] Tomas Hyman MD Primary Care Provider [phone] Reason for Visit * Reason Onset Date Comments MEDICATION REFILL 07/27/2020 Encounter Details Date Type Department Care Team (Late st Contact Info) Description 07/27/2020 Refill [facility] Medical [facility] - Rheumatology [address] [place] [address] Gloria Smith MD [address] [place] [phone] MEDICATION REFILL Social History Tobacco Use [...] st Contact Info) Description 06/03/2024 1:00 PM MUSIC COPYIST Appointment [facility] - Rheumatology [address] [place] [address] 06/03/2024 2:00 PM MUSIC COPYIST Office Visit [facility] - Rheumatology [address] [place] [address] Gloria Smith MD [address] [place] [phone] documented as of this encounter Visit Diagnoses Not on filedocumented in this encounter Care Teams Lobby Concierge Relationship Specialty Start Date End Date Tomas Hyman MD [address] [place] [address] PCP - General Family Medicine 09/05/18 Isidro Heredia MD Rheumatology 02/09/11 documented as of this encounter
--- OUTSIDE RECORDS SUMMARY | 2024-05-10 10:19 | XMS_ITS | Encounter Summary ---
Author Organization [facility] Address [address] [place] [address] Care Team Providers Care Teacher Aide Name Role Phone Isidro Heredia MD Unavailable [phone] Tomas Hyman MD Primary Care Provider [phone] Encounter Details Date Type Department Care Team (Late Contact Info) Description 08/28/2019 Orders Only [facility] - Rheumatology [address] [place] [address] Gloria Smith MD [address] [place] [phone] Social History Tobacco Use Types Packs/Day [...] (Late Contact Info) Description 06/03/2024 1:00 PM MENTAL HEALTH PRACTITIONER Appointment [facility] - Rheumatology [address] [place] [address] 06/03/2024 2:00 PM MENTAL HEALTH PRACTITIONER Office Visit [facility] - Rheumatology [address] [place] [address] Gloria Smith MD [address] [place] [phone] documented as of this encounter Visit Diagnoses Not on filedocumented in this encounter Care Teams Teacher Aide Relationship Specialty Start Date End Date Tomas Hyman MD [address] [facility] [address] [place] [address] PCP - General Family Medicine 09/05/18 Isidro Heredia MD Rheumatology 02/09/11 documented as of this encounter
--- OUTSIDE RECORDS SUMMARY | 2024-05-10 10:19 | XMS_ITS | Encounter Summary ---
Author Organization [facility] Address [address] [place] [address] Care Team Providers Care Tilting Head Band Sawyer Name Role Phone Isidro Heredia MD Unavailable [phone] Tomas Hyman MD Primary Care Provider [phone] Encounter Details Date Type Department Care Team [...] COVID-19? No / Unsure 03/05/2020 11:52 AM MOLD FORMS BUILDER documented as of this encounter Plan of Treatment Upcoming Encounters Date Type Department Care Team (Late st Contact Info) Description 06/03/2024 1:00 PM MOLD FORMS BUILDER Appointment [facility] - Rheumatology [address] [place] [address] 06/03/2024 2:00 PM MOLD FORMS BUILDER Office Visit [facility] - Rheumatology [address] [place] [address] Gloria Smith MD [address] [place] [phone] documented as of this encounter Visit Diagnoses Not on filedocumented in this encounter Care Teams Tilting Head Band Sawyer Relationship Specialty Start Date End Date Tomas Hyman MD [address] [facility] [address] [place] [address] PCP - General Family Medicine 09/05/18 Isidro Heredia MD Rheumatology 02/09/11 documented as of this encounter
--- OUTSIDE RECORDS SUMMARY | 2024-05-10 10:19 | XMS_ITS | Encounter Summary ---
Author Organization [facility] Address [address] [facility] [place] [address] Care Team Providers Care Traffic Worker Name Role Phone Isidro Heredia MD Unavailable [phone] Tomas Hyman MD Primary Care Provider [phone] Reason for Visit * Treatment (Routine) - Closed Specialty Diagnoses / Procedures Referred By Contact Referred To Contact Infusion Therapy Nurse / Rheumatology Diagnoses Rheumatoid arthritis without rheumatoid factor, multiple sites (HCC) Procedures [place] INFLIXIMAB INJECTION Gloria Smith MD [address] [place] [address] [facility] [address] [address] Referral ID Status Reason Start Date Expiration Date Visits Re quested Visits Authorized [id number] Closed 05/04/2020 04/29/2021 12 12 Encounter Details Date Type Department Care Team (Late st Contact Info) Description 06/01/2020 10:50 AM SOLE TACKER - 06/01/2020 11:59 PM SOLE TACKER Hospital Encounter [facility] Medical [facility] - Rheumatology [address] [place] [address] Gloria Smith MD [address] [place], [place] [address] [address] Discharge Disposition: Home or Self [...] COVID-19? No / Unsure 05/04/2020 2:08 PM SOLE TACKER documented as of this encounter Last Filed Vital Signs Vital Sign Reading Time Taken Comments Blood Pressure 119/72 06/01/2020 11:08 AM SOLE TACKER Pulse 75 06/01/2020 11:08 AM SOLE TACKER Temperature 36.3 ??C (97.3 ??F) 06/01/2020 11:[address] Respiratory Rate 18 06/01/2020 11:08 AM SOLE TACKER Oxygen Saturation - - Inhaled Oxygen Concentration - - Weight 104.3 kg (230 lb) 06/01/2020 11:08 AM SOLE TACKER Height - - Body Mass Index 33 05/10/2020 10:26 AM SOLE TACKER documented in this encounter Discharge Instructions * Discharge Instructions* Jody Sahu RN - 06/01/2020 11:14 AM SOLE TACKER [place] Rheumatology Post Infusion instructions You have [...] through Sunday 9-5 call the office at [phone] After hours or on the weekend call the exchange at [phone] If you have had lab work done [...] Hospital as your provider. Jody Sahu, RN TACKER documented in this encounter Medications at Time of Discharge Medication Sig Dispensed Refills Start Date End Date atorvastatin (LIPITOR) 40 MG tablet Take 1 (one) tablet by mouth at bedtime yglrsijqqxt-kyqx-iit ysorb, PF, 0.5-1-0.5 % SOLN Instill 1 [...] 06/01/2020 11:22 AM CST JOSE Allred Ish [id number] 06/01/2020 Diagnosis: Rheumatoid arthritis without rheumatoid factor, [...] Next treatment? 4 weeks Jody Sahu RN TACKER documented in this encounter Plan of Treatment Upcoming Encounters Date Type Department Care Team (Late st Contact Info) Description 06/03/2024 1:00 PM SOLE TACKER Appointment [facility] - Rheumatology [address] [place] [address] 06/03/2024 2:00 PM SOLE TACKER Office Visit [facility] - Rheumatology [address] [place] [address] Gloria Smith MD [address] [place] [phone] documented as of this encounter Visit [...] filter. $ New Bag/Syringe 06/01/2020 11:24 AM SOLE TACKER 600 mg 135 mL/hr documented in this encounter Care Teams Traffic Worker Relationship Specialty Start Date End Date Tomas Hyman MD [address] [place] [address] PCP - General Family Medicine 09/05/18 Isidro Heredia MD Rheumatology 02/09/11 documented as of this encounter
--- OUTSIDE RECORDS SUMMARY | 2024-05-10 10:19 | XMS_ITS | Encounter Summary ---
Author Organization [facility] Address [address] [place] [address] Care Team Providers Care Container Finishing Inspector Name Role Phone Isidro Heredia MD Unavailable [phone] Tomas Hyman MD Primary Care Provider [phone] Reason for Visit * Treatment (Routine) - Closed Specialty Diagnoses / Procedures Referred By Lawrence shah Referred To Contact Infusion Therapy Nurse Diagnoses Rheumatoid arthritis without rheumatoid factor, multiple sites (HCC) Procedures [place] INFLIXIMAB INJECTION Gloria Smith MD [address] [place] [address] [address] Referral ID Status Reason Start Date Expiration Date Visits Re quested Visits Authorized [id number] Closed 05/09/2019 04/29/2020 1 12 Encounter Details Date Type Department Care Team (Late st Contact Info) Description 03/05/2020 10:37 AM VEGETABLE TRIMMER - 03/05/2020 11:59 PM VEGETABLE TRIMMER Hospital Encounter [facility] Medical [facility] - Rheumatology [address] [place] [address] Gloria Smith MD [address] [place] [address] Discharge Disposition: Home or Self Care [...] COVID-19? No / Unsure 03/05/2020 11:52 AM VEGETABLE TRIMMER documented as of this encounter Last Filed Vital Signs Vital Sign Reading Time Taken Comments Blood Pressure 128/85 03/05/2020 11:20 AM VEGETABLE TRIMMER Pulse 77 03/05/2020 11:20 AM VEGETABLE TRIMMER Temperature 37.1 ??C (98.8 ??F) 03/05/2020 11:[address] Respiratory Rate 18 03/05/2020 11:20 AM VEGETABLE TRIMMER Oxygen Saturation - - Inhaled Oxygen Concentration - - Weight 103.9 kg (229 lb) 03/05/2020 11:20 AM VEGETABLE TRIMMER Height - - Body Mass Index 32.86 11/10/2019 10:34 AM CDT documented in this encounter Discharge Instructions * Discharge Instructions* Jody Sahu RN - 03/05/2020 11:45 AM VEGETABLE TRIMMER [place] Rheumatology Post Infusion instructions You have [...] through Sunday 9-5 call the office at [phone] After hours or on the weekend call the exchange at [phone] If you have had lab work done [...] Center as your provider. Jody Sahu, RN TABLE TRIMMER documented in this encounter Medications at Time of Discharge Medication Sig Dispensed Refills Start Date End Date atorvastatin (LIPITOR) 40 MG tablet Take 1 (one) tablet by mouth at bedtime xhfuuxqhplf-famb-klf ysorb, PF, 0.5-1-0.5 % SOLN Instill 1 [...] - 03/05/2020 11:45 AM CST JOSE Deng [id number] 03/05/2020 Diagnosis: Rheumatoid arthritis without rheumatoid factor, [...] Next treatment? 4 weeks Jody Sahu, RN TABLE TRIMMER documented in this encounter Plan of Treatment Upcoming Encounters Date Type Department Care Team (Late st Contact Info) Description 06/03/2024 1:00 PM VEGETABLE TRIMMER Appointment [facility] - Rheumatology [address] [place] [phone] 06/03/2024 2:00 PM VEGETABLE TRIMMER Office Visit [facility] - Rheumatology [address] [place] [address] Gloria Smith MD [address] [place] [phone] documented as of this encounter Visit [...] filter. $ New Bag/Syringe 03/05/2020 11:39 AM VEGETABLE TRIMMER 600 mg 250 mL/hr documented in this encounter Care Teams Container Finishing Inspector Relationship Specialty Start Date End Date Tomas Hyman MD [address] [facility] [address] [place] [address] PCP - General Family Medicine 09/05/18 Isidro Heredia MD Rheumatology 02/09/11 documented as of this encounter
--- OUTSIDE RECORDS SUMMARY | 2024-05-10 10:19 | XMS_ITS | Encounter Summary ---
Author Organization [facility] Address [address] [facility] [place] [address] Care Team Providers Care Linux Programmer Name Role Phone Isidro Heredia MD Unavailable [phone] Tomas Hyman MD Primary Care Provider [phone] Encounter Details Date Type Department Care Team (Late Contact Info) Description 05/10/2020 10:30 AM AGENT BASED MODELER Ancillary Procedure [facility] [address] [place] [address] Nini Han MD [address] [place] [phone] Hand pain, right Social History Tobacco [...] COVID-19? No / Unsure 05/04/2020 2:08 PM AGENT BASED MODELER documented as of this encounter Plan of Treatment Upcoming Encounters Date Type Department Care Team (Late Contact Info) Description 06/03/2024 1:00 PM AGENT BASED MODELER Appointment [facility] - Rheumatology [address] [place] [address] 06/03/2024 2:00 PM AGENT BASED MODELER Office Visit [facility] - Rheumatology [address] [place] [address] Gloria Smith MD [address] [place] [address] [place] [phone] documented as of this encounter Procedures Procedure Name Priority Date/Time Associated Diagnosis Comments XR HAND RIGHT 3VW OR MORE Routine 05/10/2020 10:37 AM AGENT BASED MODELER Hand pain, right documented in this encounter Results * XR HAND RIGHT 3VW OR MORE (05/10/2020 10:37 AM AGENT BASED MODELER) Anatomical Region Laterality Modality Wrist / Hand Computed Radiogr aphy Narrative 05/10/2020 10:38 AM AGENT BASED MODELER Mora Delgado M, RT(R) ? 05/10/2020 11:39 AM See chart for xray results Nini Han MD DIAGNOSTIC IMAGING ORDERABLES documented in this encounter Visit Diagnoses Diagnosis Hand pain, right Pain in limb documented in this encounter Care Teams Linux Programmer Relationship Specialty Start Date End Date Tomas Hyman MD [address] [facility] [address] [place] [address] PCP - General Family Medicine 09/05/18 Isidro Heredia MD Rheumatology 02/09/11 documented as of this encounter
--- OUTSIDE RECORDS SUMMARY | 2024-05-10 10:19 | XMS_ITS | Encounter Summary ---
Author Organization [facility] Address [address] [facility] [place] [address] Care Team Providers Care Acid Tester Name Role Phone Isidro Heredia MD Unavailable [phone] Tomas Hyman MD Primary Care Provider [phone] Reason for Visit * Reason Onset Date Comments MEDICATION REFILL 10/23/2019 Encounter Details Date Type Department Care Team (Late Contact Info) Description 10/23/2019 Refill [facility] - Rheumatology [address] [place], [place] [phone] Mychart, Generic Provider MEDICATION REFILL Social History [...] (Late Contact Info) Description 06/03/2024 1:00 PM JUSTICE PROFESSOR Appointment [facility] - Rheumatology [address] [place] [address] 06/03/2024 2:00 PM JUSTICE PROFESSOR Office Visit [facility] - Rheumatology [address] [place] [address] Gloria Smith MD [address] [place] [phone] documented as of this encounter Visit Diagnoses Not on filedocumented in this encounter Care Teams Acid Tester Relationship Specialty Start Date End Date Tomas Hyman MD [address] [place] [address] PCP - General Family Medicine 09/05/18 Isidro Heredia MD Rheumatology 02/09/11 documented as of this encounter
--- OUTSIDE RECORDS SUMMARY | 2024-05-10 10:19 | XMS_ITS | Encounter Summary ---
Author Organization [facility] Address [address] [place] [address] Care Team Providers Care Oven Dauber Name Role Phone Isidro Heredia MD Unavailable [phone] Tomas Hyman MD Primary Care Provider [phone] Reason for Visit * Reason Comments Arthritis follow up Encounter Details Date Type Department Care Team (Late st Contact Info) Description 11/10/2019 10:40 AM CDT Office Visit [facility] - Rheumatology [address] [place] [address] Gloria Smith MD [address] [place] [phone] Rheumatoid arthritis of multiple sites with [...] Bilateral hand swollen in all fingers. Hand sales representative uniforms decreased bilaterally. Shoulder range of motion decreased [...] bone density scan - took alendronate from [id number]. Chronic neck and back pain - follows with Pain Management and received epidural injections. - Off Percocet since July,. 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
--- OUTSIDE RECORDS SUMMARY | 2024-05-10 10:20 | XMS_ITS | Encounter Summary ---
Author Organization [facility] Address [address] [facility] [address] [place] [address] Care Team Providers Care Curriculum Designer Name Role Phone Isidro Heredia MD Unavailable [phone] Tomas Hyman MD Primary Care Provider [phone] Encounter Details Date Type Department Care Team [...] Contact Info) Description 06/03/2024 1:00 PM SENIOR LINUX SYSTEMS ENGINEER Appointment [facility] Medical [facility] - Rheumatology [address] [place] [address] 06/03/2024 2:00 PM SENIOR LINUX SYSTEMS ENGINEER Office Visit [facility] Medical [facility] - Rheumatology [address] [place] [address] Gloria Smith MD [address] [place] [phone] documented as of this encounter Visit Diagnoses Not on filedocumented in this encounter Care Teams Curriculum Designer Relationship Specialty Start Date End Date Tomas Hyman MD [address] [place] [address] PCP - General Family Medicine 09/05/18 Isidro Heredia MD Rheumatology 02/09/11 documented as of this encounter
--- OUTSIDE RECORDS SUMMARY | 2024-05-10 10:20 | XMS_ITS | Encounter Summary ---
Author Organization [facility] Address [address] [place] [address] Care Team Providers Care Furniture Maker Name Role Phone Isidro Heredia MD Unavailable [phone] Tomas Hyman MD Primary Care Provider [phone] Reason for Visit * Reason Onset Date Comments MEDICATION REFILL 04/14/2019 MEDICATION REFILL 11/12/2019 Encounter Details Date Type Department Care Team (Late st Contact Info) Description 04/14/2019 Refill [facility] Medical [facility] - Rheumatology [address] [place] [address] Isidro Heredia MD [address] [place] [address] [phone] MEDICATION REFILL; MEDICATION REFILL Social History Tobacco [...] Peters - 04/15/2019 8:33 AM CST [place]:01/08/19 MARKETING SPECIALIST documented in this encounter Plan of Treatment Upcoming Encounters Date Type Department Care Team (Late st Contact Info) Description 06/03/2024 1:00 PM SEO MARKETING SPECIALIST Appointment [facility] - Rheumatology [address] [place] [address] [phone] 06/03/2024 2:00 PM SEO MARKETING SPECIALIST Office Visit [facility] - Rheumatology [address] [place] [address] [phone] Gloria Smith MD [address] [place] [phone] documented as of this encounter Visit Diagnoses Not on filedocumented in this encounter Care Teams Furniture Maker Relationship Specialty Start Date End Date Tomas Hyman MD [address] [facility] [address] [place] [address] PCP - General Family Medicine 09/05/18 Isidro Heredia MD Rheumatology 02/09/11 documented as of this encounter
--- OUTSIDE RECORDS SUMMARY | 2024-05-10 10:20 | XMS_ITS | Encounter Summary ---
Author Organization [facility] Address [address] [facility] [place] [address] Care Team Providers Care County Ordinary Name Role Phone Isidro Heredia MD Unavailable [phone] Tomas Hyman MD Primary Care Provider [phone] Encounter Details Date Type Department Care Team [...] st Contact Info) Description 06/03/2024 1:00 PM LURE MAKER Appointment [facility] - Rheumatology [address] [place] [address] 06/03/2024 2:00 PM LURE MAKER Office Visit [facility] - Rheumatology [address] [place] [address] Gloria Smith MD [address] [place] [phone] documented as of this encounter Visit Diagnoses Not on filedocumented in this encounter Care Teams County Ordinary Relationship Specialty Start Date End Date Tomas Hyman MD [address] [facility] [address] [place] [address] PCP - General Family Medicine 09/05/18 Isidro Heredia MD Rheumatology 02/09/11 documented as of this encounter
--- OUTSIDE RECORDS SUMMARY | 2024-05-10 10:20 | XMS_ITS | Encounter Summary ---
Author Organization [facility] Address [address] [facility] [place] [address] Care Team Providers Care Mop Handle Assembler Name Role Phone Isidro Heredia MD Unavailable [phone] Tomas Hyman MD Primary Care Provider [phone] Encounter Details Date Type Department Care Team (Latest Contact Info) Description 10/28/2018 11:53 AM CDT - 10/28/2018 11:54 AM T Hospital Encounter [facility] [address] [place] [address] [place] [address] [place] [address] Discharge Disposition: Home or Self Care Social [...] 1 (one) tablet by mouth at bedtime eftwxhslysz-futj-tao ysorb, PF, 0.5-1-0.5 % SOLN Instill 1 [...] st Contact Info) Description 06/03/2024 1:00 PM POULTRY BARN MANAGER Appointment [facility] - Rheumatology [address] [place] [address] 06/03/2024 2:00 PM POULTRY BARN MANAGER Office Visit [facility] - Rheumatology [address] [place] [address] Gloria Smith MD [address] [place] [phone] documented as of this encounter Visit Diagnoses Not on filedocumented in this encounter Care Teams Mop Handle Assembler Relationship Specialty Start Date End Date Tomas Hyman MD [address] [facility] [address] [place] [address] PCP - General Family Medicine 09/05/18 Isidro Heredia MD Rheumatology 02/09/11 documented as of this encounter
--- OUTSIDE RECORDS SUMMARY | 2024-05-10 10:20 | XMS_ITS | Encounter Summary ---
Author Organization [facility] Address [address] [facility] [place] [address] Care Team Providers Care Pulp Maker Name Role Phone Isidro Heredia MD Unavailable [phone] Tomas Hyman MD Primary Care Provider [phone] Reason for Visit * Reason Onset Date Comments MEDICATION REFILL 07/13/2019 Encounter Details Date Type Department Care Team (Late Contact Info) Description 07/13/2019 Refill [facility] Medical [facility] - Rheumatology [address] [place] [address] [phone] Isidro Heredia MD [address] [place] [address] MEDICATION REFILL Social History Tobacco Use [...] Contact Info) Description 06/03/2024 1:00 PM HEARING THERAPIST Appointment [facility] - Rheumatology [address] [place] [address] [phone] 06/03/2024 2:00 PM HEARING THERAPIST Office Visit [facility] - Rheumatology [address] [place] [address] [phone] Gloria Smith MD [address] [place] [phone] documented as of this encounter Visit Diagnoses Not on filedocumented in this encounter Care Teams Pulp Maker Relationship Specialty Start Date End Date Tomas Hyman MD [address] [facility] [address] [place] [address] PCP - General Family Medicine 09/05/18 Isidro Heredia MD Rheumatology 02/09/11 documented as of this encounter
--- OUTSIDE RECORDS SUMMARY | 2024-05-10 10:20 | XMS_ITS | Encounter Summary ---
Author Organization [facility] Address [address] [facility] [place] [address] Care Team Providers Care Machinist Supervisor Name Role Phone Isidro Heredia MD Unavailable [phone] Tomas Hyman MD Primary Care Provider [phone] Encounter Details Date Type Department Care Team (Late Contact Info) Description 01/19/2019 Orders Only [facility] - Rheumatology [address] [place] [address] Gloria [facility] [place] [address] Social History Tobacco Use Types [...] (Late Contact Info) Description 06/03/2024 1:00 PM INSURANCE POLICY ISSUE CLERK Appointment [facility] - Rheumatology [address] [place] [address] 06/03/2024 2:00 PM INSURANCE POLICY ISSUE CLERK Office Visit [facility] - Rheumatology [address] [place] [address] Gloria Smith MD [facility] [place] [place] [address] documented as of this encounter Visit Diagnoses Not on filedocumented in this encounter Care Teams Machinist Supervisor Relationship Specialty Start Date End Date Tomas Hyman MD [address] [place] [address] PCP - General Family Medicine 09/05/18 Isidro Heredia MD Rheumatology 02/09/11 documented as of this encounter
--- OUTSIDE RECORDS SUMMARY | 2024-05-10 10:20 | XMS_ITS | Encounter Summary ---
Author Organization [facility] Address [address] [place] [address] Care Team Providers Care Chucking And Boring Machine Operator Name Role Phone Isidro Heredia MD Unavailable [phone] Tomas Hyman MD Primary Care Provider [phone] Encounter Details Date Type Department Care Team [...] st Contact Info) Description 06/03/2024 1:00 PM DITCH TENDER Appointment [facility] - Rheumatology [address] [place] [address] 06/03/2024 2:00 PM DITCH TENDER Office Visit [facility] - Rheumatology [address] [place] [address] Gloria Smith MD [address] [place] [phone] documented as of this encounter Visit Diagnoses Not on filedocumented in this encounter Care Teams Chucking And Boring Machine Operator Relationship Specialty Start Date End Date Tomas Hyman MD [address] [place] [address] PCP - General Family Medicine 09/05/18 Isidro Heredia MD Rheumatology 02/09/11 documented as of this encounter
--- OUTSIDE RECORDS SUMMARY | 2024-05-10 10:20 | XMS_ITS | Encounter Summary ---
Author Organization [facility] Address [address] [facility] [place] [address] Care Team Providers Care Compensator Name Role Phone Isidro Heredia MD Unavailable [phone] Tomas Hyman MD Primary Care Provider [phone] Encounter Details Date Type Department Care Team (Latest Contact Info) Description 10/28/2018 11:55 AM CDT - 10/28/2018 11:59 PM CDT Hospital Encounter [facility] Pain Care [address] [place] [address] [place] [address] [place] [address] Discharge Disposition: Home or Self Care Social [...] headache, or any other problems, please call [phone] or after hours callDr. Mirza at [phone] and tell them your physician's name. The exchange will alert the physician concrete pourer. If sedation is given: No sedation given. For Your Next Visit: No additional instructions. Other Instructions: May remove band-aid in 12 Hours. Return in 2 weeks for follow up. documented in this encounter Medications at Time of Discharge Medication Sig Dispensed Refills Start Date End Date atorvastatin (LIPITOR) 40 MG tablet Take 1 (one) tablet by mouth at bedtime ipvqkpllcee-hhgv-ivi ysorb, PF, 0.5-1-0.5 % SOLN Instill 1 [...] ??? buPROPion (WELLBUTRIN) 100 MG tablet ??? zlolxwvqlss-frun-dpzomikh, PF, (REFRESH OPTIVE ADVANCED PF) 0.5-1-0.5 % SOLN ??? carvedilol (COREG) 12.5 MG tablet ??? ferrous sulfate 325 (65 FE) MG tablet ??? gabapentin (NEURONTIN) 300 MG capsule ??? Vjoaswyjfnc-Spnexldsl-Ebn C-Mn (GLUCOSAMINE CHONDR 1500 COMPLX PO) ??? [...] identified, and marked by Dr. Mirza. Responsible warehouse driver is not needed due to the [...] Info) Description 06/03/2024 1:00 PM DIRECTOR OF TRAUMA Appointment [facility] - Rheumatology [address] [place] [address] [phone] 06/03/2024 2:00 PM DIRECTOR OF TRAUMA Office Visit [facility] - Rheumatology [address] [place] [address] [phone] Gloria Smith MD [address] [place] [phone] documented as of this encounter Procedures Procedure [...] buPROPion (WELLBUTRIN) 100 MG tablet ? ? afgtzssapfg-lqux-sfzhuzpn, PF, (REFRESH OPTIVE ADVANCED PF) 0.5-1-0.5 % SOLN ? ? carvedilol (COREG) 12.5 MG tablet ? ? ferrous sulfate 325 (65 FE) MG tablet ? ? gabapentin (NEURONTIN) 300 MG capsule ? ? Hzkfomsyhzq-Lqwnhtnyh-Gyx C-Mn (GLUCOSAMINE CHONDR 1500 COMPLX PO) ? [...] identified, and marked by Dr. Mirza. ??Responsible warehouse driver is not needed due to the [...] mg documented in this encounter Care Teams Compensator Relationship Specialty Start Date End Date Tomas Hyman MD [address] [facility] [address] [place] [address] PCP - General Family Medicine 09/05/18 Isidro Heredia MD Rheumatology 02/09/11 documented as of this encounter
--- OUTSIDE RECORDS SUMMARY | 2024-05-10 10:20 | XMS_ITS | Encounter Summary ---
Author Organization [facility] Address [address] [facility] [place] [address] Care Team Providers Care Deicer Inspector Electric Name Role Phone Isidro Heredia MD Unavailable [phone] Tomas Hyman MD Primary Care Provider Reason for Visit * Reason Onset Date Comments Appointment 01/02/2019 Encounter Details Date Type Department Care Team (Late st Contact Info) Description 01/02/2019 Telephone [facility] Medical [facility] - Rheumatology [address] [place] [address] Isidro Heredia MD [address] [place] [address] Appointment Social History Tobacco Use Types [...] st Contact Info) Description 06/03/2024 1:00 PM CALIBRATION ENGINEER Appointment [facility] - Rheumatology [address] [place] [address] [phone] 06/03/2024 2:00 PM CALIBRATION ENGINEER Office Visit [facility] - Rheumatology [address] [place] [address] Gloria Smith MD [address] [place] [phone] documented as of this encounter Visit Diagnoses Not on filedocumented in this encounter Care Teams Deicer Inspector Electric Relationship Specialty Start Date End Date Tomas Hyman MD [address] [facility] [address] [place] [address] PCP - General Family Medicine 09/05/18 Isidro Heredia MD Rheumatology 02/09/11 documented as of this encounter
--- OUTSIDE RECORDS SUMMARY | 2024-05-10 10:20 | XMS_ITS | Encounter Summary ---
Author Organization [facility] Address [address] [facility] [place] [address] Care Team Providers Care Bioassayist Name Role Phone Isidro Heredia MD Unavailable [phone] Tomas Hyman MD Primary Care Provider [phone] Reason for Visit * Treatment (Routine) - Closed Specialty Diagnoses / Procedures Referred By Lawrence shah Referred To Contact Infusion Therapy Nurse Diagnoses Rheumatoid arthritis without rheumatoid factor, multiple sites (HCC) Procedures [place] INFLIXIMAB INJECTION Gloria Smith MD [address] [place] [address] [address] Referral ID Status Reason Start Date Expiration Date Visits Re quested Visits Authorized [id number] Closed 05/09/2019 04/29/2020 1 12 Encounter Details Date Type Department Care Team (Late st Contact Info) Description 07/18/2019 10:44 AM CDT - 07/18/2019 11:59 PM CDT Hospital Encounter [facility] Medical [facility] - Rheumatology [address] [place] [address] Gloria Smith MD [facility] [place] [address] Discharge Disposition: Home or Self [...] Sahu RN - 07/18/2019 11:47 AM CDT [place] Rheumatology Post Infusion instructions [...] Sunday through 01-02 call the office at [phone] After hours or on the weekend call the exchange at [phone] If you have had lab work done [...] 1 (one) tablet by mouth at bedtime eykjlmtqtib-hhhk-cz lysorb, PF, 0.5-1-0.5 % SOLN Instill 1 [...] - 07/18/2019 11:00 AM CDT JOSE Deng [id number] 07/18/2019 Diagnosis: Rheumatoid arthritis without rheumatoid factor, multiple sites [M06.09]. Pt denies symptoms of infection or antibiotic use, no open wounds, or recent surgery, or plans for surgery in the next couple of weeks. Pt is aware that we use the 0-10 pain scale to assess discomfort. 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 service desk lead pt signs consent for treatment for this [...] st Contact Info) Description 06/03/2024 1:00 PM LOGGING EQUIPMENT OPERATOR Appointment [facility] - Rheumatology [address] [place] [address] 06/03/2024 2:00 PM LOGGING EQUIPMENT OPERATOR Office Visit [facility] - Rheumatology [address] [place] [address] Gloria Smith MD [address] [place] [phone] documented as of this encounter Visit [...] mL/hr documented in this encounter Care Teams Bioassayist Relationship Specialty Start Date End Date Tomas Hyman MD [address] [place] [address] PCP - General Family Medicine 09/05/18 Isidro Heredia MD Rheumatology 02/09/11 documented as of this encounter
--- OUTSIDE RECORDS SUMMARY | 2024-05-10 10:20 | XMS_ITS | Encounter Summary ---
Author Organization [facility] Address [address] [facility] [place] [address] Care Team Providers Care Financial Foundations Associate Name Role Phone Isidro Heredia MD Unavailable [phone] Tomas Hyman MD Primary Care Provider [phone] Reason for Visit * Treatment (Routine) - Closed Specialty Diagnoses / Procedures Referred By Lawrence t Referred To Contact Infusion Therapy Nurse Diagnoses Rheumatoid arthritis without rheumatoid factor, multiple sites (HCC) Procedures [place] INFLIXIMAB INJECTION Isidro Heredia MD [address] [place] [address] [address] Referral ID Status Reason Start Date Expiration Date Visits Re quested Visits Authorized [id number] Closed 05/13/2018 04/29/2019 1 12 Encounter Details Date Type Department Care Team (Late st Contact Info) Description 04/18/2019 11:45 AM SUPERVISOR DOPING - 04/18/2019 1:32 PM SUPERVISOR DOPING Hospital Encounter [facility] Medical [facility] - Rheumatology [address] [place] [address] Gloria Smith MD [address] [place] [phone] Discharge Disposition: Home or Self Care [...] Comments Blood Pressure 138/80 04/18/2019 12:12 PM SUPERVISOR DOPING Pulse 71 04/18/2019 12:12 PM SUPERVISOR DOPING Temperature 37.1 ??C (98.8 ??F) 04/18/2019 12:[address] Respiratory Rate 17 04/18/2019 12:12 PM SUPERVISOR DOPING Oxygen Saturation - - Inhaled Oxygen Concentration - - Weight 107.5 kg (237 lb) 04/18/2019 12:12 PM SUPERVISOR DOPING Height - - Body Mass Index 34.01 09/05/2018 10:54 AM CDT documented in this encounter Discharge Instructions * Discharge Instructions* Jody Sahu RN - 04/18/2019 12:[address] Rheumatology Post Infusion instructions You have [...] through Sunday 9-5 call the office at [phone] After hours or on the weekend call the exchange at [phone] If you have had lab work done [...] Center as your provider. Jody Sahu RN RVISOR DOPING documented in this encounter Medications at Time of Discharge Medication Sig Dispensed Refills Start Date End Date atorvastatin (LIPITOR) 40 MG tablet Take 1 (one) tablet by mouth at bedtime rzfkmefscin-kwdo-ukr ysorb, PF, 0.5-1-0.5 % SOLN Instill 1 [...] 04/18/2019 12:26 PM CST JOSE Allred Deng [id number] 04/18/2019 Diagnosis: Rheumatoid arthritis without rheumatoid factor, [...] Next treatment? 6 weeks Jody Sahu RN RVISOR DOPING documented in this encounter Plan of Treatment Upcoming Encounters Date Type Department Care Team (Late st Contact Info) Description 06/03/2024 1:00 PM SUPERVISOR DOPING Appointment [facility] - Rheumatology [address] [place] [address] 06/03/2024 2:00 PM SUPERVISOR DOPING Office Visit [facility] - Rheumatology [address] [place] [address] Gloria Smith MD [address] [place] [phone] documented as of this encounter Visit [...] filter. $ New Bag/Syringe 04/18/2019 12:27 PM SUPERVISOR DOPING 400 mg 135 mL/hr documented in this encounter Care Teams Financial Foundations Associate Relationship Specialty Start Date End Date Tomas Hyman MD [address] [facility] [address] [place] [address] PCP - General Family Medicine 09/05/18 Isidro Heredia MD Rheumatology 02/09/11 documented as of this encounter
--- OUTSIDE RECORDS SUMMARY | 2024-05-10 10:20 | XMS_ITS | Encounter Summary ---
Author Organization [facility] Address [address] [facility] [place] [address] Care Team Providers Care Story Editor Name Role Phone Isidro Heredia MD Unavailable [phone] Tomas Hyman MD Primary Care Provider Reason for Visit * Reason Onset Date Comments MEDICATION REFILL 10/24/2018 Encounter Details Date Type Department Care Team (Late Contact Info) Description 10/24/2018 Refill [facility] - Rheumatology [address] [place] [address] Isidro Heredia MD [address] [place] [address] MEDICATION REFILL Social History Tobacco Use [...] (Late Contact Info) Description 06/03/2024 1:00 PM TECHNOLOGY SALES CONSULTANT Appointment [facility] - Rheumatology [address] [place] [address] 06/03/2024 2:00 PM TECHNOLOGY SALES CONSULTANT Office Visit [facility] - Rheumatology [address] [place] [address] Gloria Smith MD [address] [place] [address] documented as of this encounter Visit Diagnoses Not on filedocumented in this encounter Care Teams Story Editor Relationship Specialty Start Date End Date Tomas Hyman MD [address] [place] [address] PCP - General Family Medicine 09/05/18 Isidro Heredia MD Rheumatology 02/09/11 documented as of this encounter
--- OUTSIDE RECORDS SUMMARY | 2024-05-10 10:20 | XMS_ITS | Encounter Summary ---
Author Organization [facility] Address [address] [facility] [place] [address] Care Team Providers Care System Safety Manager Name Role Phone Isidro Heredia MD Unavailable Tomas Hyman MD Primary Care Provider [phone] Encounter Details Date Type Department Care Team (Late Contact Info) Description 03/03/2019 Orders Only [facility] - Rheumatology [address] [place] [address] [facility] [place] [address] Social History Tobacco Use Types [...] Contact Info) Description 06/03/2024 1:00 PM INSURANCE CLAIM APPROVER Appointment [facility] - Rheumatology [address] [place] [address] 06/03/2024 2:00 PM INSURANCE CLAIM APPROVER Office Visit [facility] - Rheumatology [address] [place] [address] Gloria Smith MD [facility] [place] [address] documented as of this encounter Visit Diagnoses Not on filedocumented in this encounter Care Teams System Safety Manager Relationship Specialty Start Date End Date Tomas Hyman MD [address] [place] [address] PCP - General Family Medicine 09/05/18 Isidro Heredia MD Rheumatology 02/09/11 documented as of this encounter
--- OUTSIDE RECORDS SUMMARY | 2024-05-10 10:20 | XMS_ITS | Encounter Summary ---
Author Organization [facility] Address [address] [facility] [place] [address] Care Team Providers Care Paper Cup Machine Tender Name Role Phone Isidro Heredia MD Unavailable Tomas Hyman MD Primary Care Provider [phone] Reason for Visit * Reason Onset Date Comments MEDICATION REFILL 04/14/2019 Encounter Details Date Type Department Care Team (Late st Contact Info) Description 04/14/2019 Refill [facility] - Rheumatology [address] [place] [address] Gloria Smith MD [address] [place] [phone] MEDICATION REFILL Social History Tobacco Use [...] (Late Contact Info) Description 06/03/2024 1:00 PM ACQUISITION SPECIALIST Appointment [facility] - Rheumatology [address] [place] [address] 06/03/2024 2:00 PM ACQUISITION SPECIALIST Office Visit [facility] - Rheumatology [address] [place] [address] Gloria Smith MD [address] [place] [phone] documented as of this encounter Visit Diagnoses Not on filedocumented in this encounter Care Teams Paper Cup Machine Tender Relationship Specialty Start Date End Date Tomas Hyman MD [address] [place] [address] PCP - General Family Medicine 09/05/18 Isidro Heredia MD Rheumatology 02/09/11 documented as of this encounter
--- OUTSIDE RECORDS SUMMARY | 2024-05-10 10:20 | XMS_ITS | Encounter Summary ---
Author Organization [facility] Address [address] [facility] [place] [address] Care Team Providers Care Range Aide Name Role Phone Isidro Heredia MD Unavailable [phone] Tomas Hyman MD Primary Care Provider Encounter Details Date Type Department Care Team (Late Contact Info) Description 10/24/2018 Orders Only [facility] - Rheumatology [address] [place] [address] Isidro Heredia MD [address] [place] [address] Social History Tobacco Use Types Packs/Day [...] (Late Contact Info) Description 06/03/2024 1:00 PM INDUSTRIAL ENGINEERING Appointment [facility] - Rheumatology [address] [place] [address] 06/03/2024 2:00 PM INDUSTRIAL ENGINEERING Office Visit [facility] - Rheumatology [address] [place] [address] Gloria Smith MD [address] [place] [phone] documented as of this encounter Procedures Procedure [...] Resulting Agency Comment Lab Testing performed at: [facility] [address] ??[facility] [id number] Isidro Heredia MD LAB - HEMATOLOGY OR DERABLES [facility] INSURANCE BILL [address] [place] [address] * COMPREHENSIVE METABOLIC PANEL (10/24/2018 10:00 AM [...] Agency Comment Lab Testing performed at: [facility] [address] [facility] ??[facility] [id number] Isidro Heredia MD LAB - CHEMISTRY ORD ERABLES [facility] INSURANCE BILL [address] [place] [address] documented in this encounter Visit Diagnoses Not on filedocumented in this encounter Care Teams Range Aide Relationship Specialty Start Date End Date Tomas Hyman MD [address] [facility] [address] [place] [address] PCP - General Family Medicine 09/05/18 Isidro Heredia MD Rheumatology 02/09/11 documented as of this encounter
--- OUTSIDE RECORDS SUMMARY | 2024-05-10 10:20 | XMS_ITS | Encounter Summary ---
Author Organization [facility] Address [address] [facility] [place] [address] Care Team Providers Care Rn New Graduate Name Role Phone Isidro Heredia MD Unavailable [phone] Tomas Hyman MD Primary Care Provider [phone] Encounter Details Date Type Department Care Team (Latest Contact Info) Description 08/05/2019 10:45 AM CDT - 08/05/2019 11:59 PM CDT Hospital Encounter [facility] Pain Care [address] [place] [address] [place] [address] [place] [address] Discharge Disposition: Home or Self [...] Paris RN - 08/05/2019 10:45 AM CDT [facility] Procedure Center Pain Discharge [...] headache, or any other problems, please call [phone] or after hours callDr. Barnett at [phone] and tell them your physician's name. The exchange will alert the physician reconditioner. If sedation is given: No sedation given. For Your Next Visit: No additional instructions. Other Instructions: May remove band-aid in 12 Hours. Return in 3-[address] Barnett documented in this encounter Medications at Time of Discharge Medication Sig Dispensed Refills Start Date End Date atorvastatin (LIPITOR) 40 MG tablet Take 1 (one) tablet by mouth at bedtime djkekdlefpe-lzgc-tp lysorb, PF, 0.5-1-0.5 % SOLN Instill 1 [...] Patient has been attending physical therapy at [place], [place] since 07/02/2019 without sustained pain releif. [...] with plain water Orally every 7 days. Charlotte 5-325 MG Tablet 1 tablet as needed [...] acute distress, well developed, well nourished categoryPropId= [id number] examid= [id number] GENERALAPPEARANCE: in no acute distress, well developed, well nourished. NC/AT, Symmetrical categoryPropId= [id number] examid= [id number] HEAD: NC/AT, Symmetrical. PERRLA, EOMI, Visual keen intact categoryPropId= [id number] examid= [id number] EYES: PERRLA, EOMI, Visual keen intact. Hearing intact categoryPropId= [id number] examid= [id number] EARS: Hearing intact. Supple, non-tender, no thyroidomegaly categoryPropId= [id number] examid= [id number] NECK/THYROID: Supple, non-tender, no thyroidomegaly. Lungs clear w/o wheezes, no rales or rhonchi categoryPropId= [id number] examid= [id number] RESPIRATORY: Lungs clear w/o wheezes, no rales or rhonchi. regular rate & rhythm, no murmurs categoryPropId= [id number] examid= [id number] HEART: regular rate & rhythm, no murmurs. [...] cm Diameter Left calf: 43 cm categoryPropId= [id number] examid= [id number] MUSCULOSKELETAL: ambulates with slow antalgic gait with [...] Skin w/o lesions, moist, well perfused categoryPropId= [id number] examid= [id number] SKIN: Skin w/o lesions, moist, well perfused. Patient alert & oriented, appropriate mood & affect, speech normal, tone normal, affect appropriate, NAD. Patient denies suicidal ideation. Patient denies homicidal ideation. categoryPropId= [id number] examid= [id number] PSYCH: Patient alert & oriented, appropriate mood & affect, speech normal, tone normal, affect appropriate, NAD. Patient denies suicidal ideation. Patient denieshomicidal ideation.. Active bowel sounds, soft, no mass or organomegaly categoryPropId= [id number] examid= [id number] GASTROINTESTINAL: Active bowel sounds, soft, no mass [...] telehealth vs in office follow up with COMPRESSOR STATION ENGINEER CHIEF s/p DOI) documented in this encounter OR [...] DRAINS: None. COMPLICATIONS: None. CONDITION POSTPROCEDURE: Stable. CERTIFIED PEST CONTROL TECHNICIAN: None. INDICATIONS: Please refer to H/P for [...] on how to reach the clinic or reconditioner physician at anytime for questions or complaints. documented in this encounter Plan of Treatment Upcoming Encounters Date Type Department Care Team (Late st Contact Info) Description 06/03/2024 1:00 PM BOOT LINER MAKER Appointment [facility] - Rheumatology [address] [place] [address] 06/03/2024 2:00 PM BOOT LINER MAKER Office Visit [facility] - Rheumatology [address] [place] [address] [phone] Gloria Smith MD [address] [place] [phone] Pending Results Name Type Priority Associated Diagnoses [...] comments documented in this encounter Care Teams Rn New Graduate Relationship Specialty Start Date End Date Tomas Hyman MD [address] [facility] [address] [place] [address] PCP - General Family Medicine 09/05/18 Isidro Heredia MD Rheumatology 02/09/11 documented as of this encounter
--- OUTSIDE RECORDS SUMMARY | 2024-05-10 10:20 | XMS_ITS | Encounter Summary ---
Author Organization [facility] Address [address] [place] [address] Care Team Providers Care Skate Boarder Name Role Phone Isidro Heredia MD Unavailable [phone] Tomas Hyman MD Primary Care Provider [phone] Reason for Visit * Reason Onset Date Comments Infusion 02/28/2019 Encounter Details Date Type Department Care Team (Late st Contact Info) Description 02/28/2019 Telephone [facility] Medical [facility] - Rheumatology [address] [place] [address] Gloria Smith MD [address] [place] [phone] Infusion Social History Tobacco Use Types [...] st Contact Info) Description 06/03/2024 1:00 PM WING COVERER Appointment [facility] - Rheumatology [address] [place] [address] [phone] 06/03/2024 2:00 PM WING COVERER Office Visit [facility] - Rheumatology [address] [place] [address] [phone] Gloria Smith MD [address] [place] [phone] documented as of this encounter Visit Diagnoses Not on filedocumented in this encounter Care Teams Skate Boarder Relationship Specialty Start Date End Date Tomas Hyman MD [address] [place] [address] PCP - General Family Medicine 09/05/18 Isidro Heredia MD Rheumatology 02/09/11 documented as of this encounter
--- OUTSIDE RECORDS SUMMARY | 2024-05-10 10:20 | XMS_ITS | Encounter Summary ---
Author Organization [facility] Address [address] [place] [address] Care Team Providers Care Auto Wrecker Name Role Phone Isidro Heredia MD Unavailable [phone] Tomas Hyman MD Primary Care Provider [phone] Reason for Visit * Reason Comments Arthritis follow up Encounter Details Date Type Department Care Team (Late st Contact Info) Description 04/18/2019 1:00 PM MAMMA LOGIST Office Visit [facility] - Rheumatology [address] [place] [address] Gloria Smith MD [address] [place] [phone] Osteoporosis, unspecified osteoporosis type, unspecified pathological [...] Comments Blood Pressure 106/72 04/18/2019 12:38 PM MAMMA LOGIST Pulse 94 04/18/2019 12:38 PM MAMMA LOGIST Temperature 37.2 ??C (98.9 ??F) 04/18/2019 12:[address] Respiratory Rate - - Oxygen Saturation - - Inhaled Oxygen Concentration - - Weight - - Height - - Body Mass Index - - documented in this encounter Patient Instructions * Patient Instructions* Gloria Smith MD - 04/18/2019 1:02 PM MAMMA LOGIST Decreased methotrexate to 4 tablets per week. Continue folic acid 1mg daily. Decrease prednisone to 5mg (1/2 tablet) twice a day. Bone density scan. Stop Fosamax after completing the 90 day refill. Switch Flexeril to tizanidine as muscle relaxant for neck pain. A LOGIST documented in this encounter Progress Notes * [...] pain - Weaning percocet from Dr. Heredia. A LOGIST documented in this encounter Plan of Treatment Upcoming Encounters Date Type Department Care Team (Late st Contact Info) Description 06/03/2024 1:00 PM MAMMA LOGIST Appointment [facility] - Rheumatology [address] [place] [address] 06/03/2024 2:00 PM MAMMA LOGIST Office Visit [facility] - Rheumatology [address] [place] [address] Gloria Smith MD [facility] [place] [address] documented as of this encounter Results * XR CERVICAL SPINE 2 OR 3VW (04/18/2019 1:48 PM MAMMA LOGIST) Anatomical Region Laterality Modality Spine Radiographic Reena ging 04/18/2019 1:56 PM MAMMA LOGIST Impressions 04/18/2019 1:59 PM MAMMA LOGIST There is moderate disc space narrowing at C5-6 and C6-7 with osteophytosis at C5-6. This could be further evaluated by MRI if indicated. Reading Radiologist: Cristina Avalos MD on 04/18/2019 at 1:59 PM Narrative 04/18/2019 1:59 PM MAMMA LOGIST Cervical spine AP and lateral INDICATION: Neck [...] (HCC) documented in this encounter Care Teams Auto Wrecker Relationship Specialty Start Date End Date Tomas Hmyan MD [address] [place] [address] PCP - General Family Medicine 09/05/18 Isidro Heredia MD Rheumatology 02/09/11 documented as of this encounter
--- OUTSIDE RECORDS SUMMARY | 2024-05-10 10:20 | XMS_ITS | Encounter Summary ---
Author Organization [facility] Address [address] [facility] [place] [address] Care Team Providers Care Boathouse Keeper Name Role Phone Isidro Heredia MD Unavailable [phone] Tomas Hyman MD Primary Care Provider [phone] Encounter Details Date Type Department Care Team (Late st Contact Info) Description 01/24/2019 Orders Only [facility] Medical [facility] - Rheumatology [address] [place] [address] Gloria Smith MD [address] [place] [phone] Rheumatoid arthritis of multiple sites with [...] know that his lab tests are normal. IFIED REHABILITATION COUNSELOR * Ella Peters - 01/24/2019 3:23 PM CDT Patient was here today and is requesting orders for labs. documented in this encounter Plan of Treatment Upcoming Encounters Date Type Department Care Team (Late st Contact Info) Description 06/03/2024 1:00 PM CERTIFIED REHABILITATION COUNSELOR Appointment [facility] - Rheumatology [address] [place] [address] 06/03/2024 2:00 PM CERTIFIED REHABILITATION COUNSELOR Office Visit [facility] - Rheumatology [address] [place] [address] Gloria Smith MD [address] [place] [phone] documented as of this encounter Procedures Procedure Name Priority Date/Time Associated Diagnosis Comments C-REACTIVE PROTEIN Routine 03/06/2019 11 :34 AM CERTIFIED REHABILITATION COUNSELOR Rheumatoid arthritis of multiple sites with negative rheumatoid factor (HCC) ERYTHROCYTE SEDIMENTATION RATE Routine 03/06/2019 11:34 AM CERTIFIED REHABILITATION COUNSELOR Rheumatoid arthritis of multiple sites with negative rheumatoid factor (HCC) CBC W AUTO DIFFERENTIAL Routine 03/06/2019 11:34 AM CERTIFIED REHABILITATION COUNSELOR Rheumatoid arthritis of multiple sites with negative rheumatoid factor (HCC) COMPREHENSIVE METABOLIC PANEL Routine 03/06/2019 11:34 AM CERTIFIED REHABILITATION COUNSELOR Rheumatoid arthritis of multiple sites with negative rheumatoid factor (HCC) documented in this encounter Results * C-REACTIVE PROTEIN (03/06/2019 11:34 AM CERTIFIED REHABILITATION COUNSELOR) C-Reactive Protein 0.31 <=0.50 mg/dL [facility] INSURANCE BILL Blood BLOOD SPECIMEN / Unknown 03/06/2019 11:34 AM CERTIFIED REHABILITATION COUNSELOR 03/06/2019 Narrative Resulting Agency Comment Lab Testing performed at: [place] [address] [address] ?? [place] [id number] Gloria Smith MD LAB - CHEMISTRY MARII ARAUJO [facility] INSURANCE BILL [address] [place] [address] * ERYTHROCYTE SEDIMENTATION RATE (03/06/2019 11:34 AM CERTIFIED REHABILITATION COUNSELOR) Erythrocyte Sedimentation Rate Westergren 6 0 - 20 MM/HR [facility] INSURANCE BILL Blood BLOOD SPECIMEN / Unknown 03/06/2019 11:34 AM CERTIFIED REHABILITATION COUNSELOR 03/06/2019 Narrative Resulting Agency Comment Lab Testing performed at: [facility] [id number] [address] ?? [facility] [id number] Gloria Smith MD LAB - HEMATOLOGY ORD ERABLES [facility] INSURANCE BILL [address] [place] [address] * (ABNORMAL) COMPREHENSIVE METABOLIC PANEL (03/06/2019 11:34 AM CERTIFIED REHABILITATION COUNSELOR) Glucose 81 70 - 105 mg/dL [facility] [...] BLOOD SPECIMEN / Unknown 03/06/2019 11:34 AM CERTIFIED REHABILITATION COUNSELOR 03/06/2019 Narrative Resulting Agency Comment Lab Testing performed at: [facility] [id number] [place], [place] [address] ?? [place] [id number] Gloria Smith MD LAB - CHEMISTRY MARII ARAUJO [facility] INSURANCE BILL [address] [place] [address] * (ABNORMAL) CBC WITH DIFFERENTIAL (03/06/2019 11:34 AM CERTIFIED REHABILITATION COUNSELOR) WBC 9.4 4.4 - 10.7 x10E9/L [facility] [...] [facility] INSURANCE BILL Comment:MPV [place] BLOOD ([facility]) 11.0 fl 9.4-12.9 Granulocytes % 64.9 44.0 [...] BLOOD SPECIMEN / Unknown 03/06/2019 11:34 AM CERTIFIED REHABILITATION COUNSELOR 03/06/2019 Narrative Resulting Agency Comment Lab Testing performed at: [facility] [address] [facility] [id number] Gloria Smith MD LAB - HEMATOLOGY ORD ERABLES [facility] INSURANCE BILL [address] [place] [address] documented in this encounter Visit Diagnoses Diagnosis Rheumatoid arthritis of multiple sites with negative rheumatoid factor (HCC)- Primary documented in this encounter Care Teams Boathouse Keeper Relationship Specialty Start Date End Date Tomas Hyman MD [address] [place] [address] PCP - General Family Medicine 09/05/18 Isidro Heredia MD Rheumatology 02/09/11 documented as of this encounter
--- OUTSIDE RECORDS SUMMARY | 2024-05-10 10:20 | XMS_ITS | Encounter Summary ---
Author Organization [facility] Address [address] [facility] [place] [address] Care Team Providers Care Helmet Coverer Name Role Phone Isidro Heredia MD Unavailable [phone] Tomas Hyman MD Primary Care Provider [phone] Reason for Visit * Treatment (Routine) - Closed Specialty Diagnoses / Procedures Referred By Lawrence t Referred To Contact Infusion Therapy Nurse Diagnoses Rheumatoid arthritis without rheumatoid factor, multiple sites (HCC) Procedures [place] INFLIXIMAB INJECTION Isidro Heredia MD [address] [place] [address] [address] Referral ID Status Reason Start Date Expiration Date Visits Re quested Visits Authorized [id number] Closed 05/13/2018 04/29/2019 1 12 Encounter Details Date Type Department Care Team (Late st Contact Info) Description 03/06/2019 8:54 AM GANTRY CRANE OPERATOR - 03/06/2019 11:59 PM GANTRY CRANE OPERATOR Hospital Encounter [facility] Medical [facility] - Rheumatology [address] [place] [address] Gloria Smith MD [address] [place] [address] Discharge Disposition: Home or Self Care [...] Comments Blood Pressure 141/82 03/06/2019 9:14 AM GANTRY CRANE OPERATOR Pulse 88 03/06/2019 9:14 AM GANTRY CRANE OPERATOR Temperature 36.8 ??C (98.2 ??F) 03/06/2019 9:14 AM CS T Respiratory Rate 17 03/06/2019 9:14 AM GANTRY CRANE OPERATOR Oxygen Saturation - - Inhaled Oxygen Concentration - - Weight 112 kg (247 lb) 03/06/2019 9:14 AM GANTRY CRANE OPERATOR Height - - Body Mass Index 35.44 09/05/2018 10:54 AM CDT documented in this encounter Discharge Instructions * Discharge Instructions* Jody Sahu RN - 03/06/2019 9:18 AM GANTRY CRANE OPERATOR ID Rheumatology Post Infusion instructions You have [...] Sunday through 01-02 call the office at [phone] After hours or on the weekend call the exchange at [phone] If you have had lab work done [...] Hospital as your provider. Jody Sahu RN RY CRANE OPERATOR documented in this encounter Medications at Time of Discharge Medication Sig Dispensed Refills Start Date End Date atorvastatin (LIPITOR) 40 MG tablet Take 1 (one) tablet by mouth at bedtime vxanhduycxe-vkbq-hnf ysorb, PF, 0.5-1-0.5 % SOLN Instill 1 [...] 03/06/2019 9:28 AM CST JOSE Allred Deng [id number] 03/06/2019 Diagnosis: Rheumatoid arthritis without rheumatoid factor, [...] Next treatment? 6 weeks Jody Sahu RN RY CRANE OPERATOR documented in this encounter Plan of Treatment Upcoming Encounters Date Type Department Care Team (Late st Contact Info) Description 06/03/2024 1:00 PM GANTRY CRANE OPERATOR Appointment [facility] - Rheumatology [address] [place] [address] [phone] 06/03/2024 2:00 PM GANTRY CRANE OPERATOR Office Visit [facility] - Rheumatology [address] [place] [address] Gloria Smith MD [address] [place] [phone] documented as of this encounter Visit Diagnoses [...] filter. $ New Bag/Syringe 03/06/2019 9:23 AM GANTRY CRANE OPERATOR 400 mg 135 mL/hr documented in this encounter Care Teams Helmet Coverer Relationship Specialty Start Date End Date Tomas Hyman MD [address] [facility] [address] [place] [address] PCP - General Family Medicine 09/05/18 Isidro Heredia MD Rheumatology 02/09/11 documented as of this encounter
--- OUTSIDE RECORDS SUMMARY | 2024-05-10 10:20 | XMS_ITS | Encounter Summary ---
Author Organization [facility] Address [address] [facility] [place] [address] Care Team Providers Care Major Donor Coordinator Name Role Phone Isidro Heredia MD Unavailable [phone] Tomas Hyman MD Primary Care Provider [phone] Reason for Visit * Reason Onset Date Comments MEDICATION REFILL 07/13/2019 Encounter Details Date Type Department Care Team (Late st Contact Info) Description 07/13/2019 Refill [facility] - Rheumatology [address] [place] [address] Gloria Smith MD [address] [place] [phone] MEDICATION REFILL Social History Tobacco Use [...] (Late Contact Info) Description 06/03/2024 1:00 PM DRYWALL CONTRACTOR Appointment [facility] - Rheumatology [address] [place] [address] 06/03/2024 2:00 PM DRYWALL CONTRACTOR Office Visit [facility] - Rheumatology [address] [place] [address] Gloria Smith MD [address] [place] [address] documented as of this encounter Visit Diagnoses Not on filedocumented in this encounter Care Teams Major Donor Coordinator Relationship Specialty Start Date End Date Tomas Hyman MD [address] [place] [address] PCP - General Family Medicine 09/05/18 Isidro Heredia MD Rheumatology 02/09/11 documented as of this encounter
--- OUTSIDE RECORDS SUMMARY | 2024-05-10 10:20 | XMS_ITS | Encounter Summary ---
Author Organization [facility] Address [address] [facility] [place] [address] Care Team Providers Care Dye Reel Operator Name Role Phone Isidro Heredia MD Unavailable [phone] Tomas Hyman MD Primary Care Provider [phone] Encounter Details Date Type Department Care Team (Late st Contact Info) Description 04/18/2019 1:33 PM MARKETING ANALYTICS ANALYST - 04/18/2019 11:59 PM [facility] Hospital Encounter [facility] Urgent Care - Medical Imaging [address] [place] [address] Gloria Smith MD [address] [place] [address] Discharge Disposition: Home or Self [...] 1 (one) tablet by mouth at bedtime ymummlnliog-srdv-oxm ysorb, PF, 0.5-1-0.5 % SOLN Instill 1 [...] in the neck. Continue the same medications. ETING ANALYTICS ANALYST documented in this encounter Plan of Treatment Upcoming Encounters Date Type Department Care Team (Late st Contact Info) Description 06/03/2024 1:00 PM MARKETING ANALYTICS ANALYST Appointment [facility] - Rheumatology [address] [place] [address] 06/03/2024 2:00 PM MARKETING ANALYTICS ANALYST Office Visit [facility] - Rheumatology [address] [place] [address] Gloria Smith MD [address] [place] [phone] documented as of this encounter Procedures Procedure Name Priority Date/Time Associated Diagnosis Comments XR CERVICAL SPINE 2 OR 3VW Routine 04/18/2019 1:48 PM MARKETING ANALYTICS ANALYST Osteoporosis, unspecified osteoporosis type, unspecified pathological fracture presence Rheumatoid arthritis of multiple sites with negative rheumatoid factor (HCC) documented in this encounter Results * XR CERVICAL SPINE 2 OR 3VW (04/18/2019 1:48 PM MARKETING ANALYTICS ANALYST) Anatomical Region Laterality Modality Spine Radiographic Reena ging 04/18/2019 1:56 PM MARKETING ANALYTICS ANALYST Impressions 04/18/2019 1:59 PM MARKETING ANALYTICS ANALYST There is moderate disc space narrowing at C5-6 and C6-7 with osteophytosis at C5-6. This could be further evaluated by MRI if indicated. Reading Radiologist: Cristina Avalos MD on 04/18/2019 at 1:59 PM Narrative 04/18/2019 1:59 PM MARKETING ANALYTICS ANALYST Cervical spine AP and lateral INDICATION: [...] (HCC) documented in this encounter Care Teams Dye Reel Operator Relationship Specialty Start Date End Date Tomas Hyman MD [address] [place] [address] PCP - General Family Medicine 09/05/18 Isidro Heredia MD Rheumatology 02/09/11 documented as of this encounter
--- OUTSIDE RECORDS SUMMARY | 2024-05-10 10:20 | XMS_ITS | Encounter Summary ---
Author Organization [facility] Address [address] [facility] [place] [address] Care Team Providers Care Worm Packer Name Role Phone Isidro Heredia MD Unavailable [phone] Tomas Hyman MD Primary Care Provider [phone] Encounter Details Date Type Department Care Team (Late Contact Info) Description 11/08/2018 Orders Only [facility] - Rheumatology [address] [place] [address] Isidro Heredia MD [address] [place] [address] Encounter for long-term (current) use of [...] (Late Contact Info) Description 06/03/2024 1:00 PM STAFF ANTISUBMARINE OFFICER Appointment [facility] - Rheumatology [address] [place] [address] 06/03/2024 2:00 PM STAFF ANTISUBMARINE OFFICER Office Visit [facility] Rheumatology [address] [place] [address] Gloria Smith MD [address] [place], [place] [address], [place] [address] documented as of this encounter Visit Diagnoses Diagnosis Encounter for long-term (current) use of medications Encounter for long-term (current) use of other medications documented in this encounter Care Teams Worm Packer Relationship Specialty Start Date End Date Tomas Hyman MD [address] [facility] [address] [place] [address] PCP - General Family Medicine 09/05/18 Isidro Heredia MD Rheumatology 02/09/11 documented as of this encounter
--- OUTSIDE RECORDS SUMMARY | 2024-05-10 10:20 | XMS_ITS | Encounter Summary ---
Author Organization [facility] Address [address] [facility] [place] [address] Care Team Providers Care Case Supervisor Name Role Phone Isidro Heredia MD Unavailable [phone] Tomas Hyman MD Primary Care Provider [phone] Reason for Visit * Reason Comments Arthritis follow up Encounter Details Date Type Department Care Team (Late st Contact Info) Description 12/12/2018 10:45 AM CDT Office Visit [facility] - Rheumatology [address] [place] [address] Isidro Heredia MD [address] [place] [address] Abnormal LFTs (Primary Dx); Chronic pain [...] 100 mg by mouth once daily ??? vklpamsmvol-xcph-psbntlpq, PF, (REFRESH OPTIVE ADVANCED PF) 0.5-1-0.5 % [...] 2 times daily 180 capsule 3 ??? 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
--- OUTSIDE RECORDS SUMMARY | 2024-05-10 10:20 | XMS_ITS | Encounter Summary ---
Author Organization [facility] Address [address] [facility] [address] Care Team Providers Care Obstetrics Gyn Name Role Phone Isidro Heredia MD Unavailable [phone] Tomas Hyman MD Primary Care Provider [phone] Reason for Visit * Treatment (Routine) - Closed Specialty Diagnoses / Procedures Referred By Lawrence shah Referred To Contact Infusion Therapy Nurse Diagnoses Rheumatoid arthritis without rheumatoid factor, multiple sites (HCC) Procedures [place] INFLIXIMAB INJECTION Isidro Heredia MD [address] [place] [address] [address] Referral ID Status Reason Start Date Expiration Date Visits Re quested Visits Authorized [id number] Closed 05/13/2018 04/29/2019 1 12 Encounter Details Date Type Department Care Team (Late st Contact Info) Description 10/24/2018 10:00 AM CDT - 10/24/2018 11:59 PM CDT Hospital Encounter [facility] Medical [facility] - Rheumatology [address] [place] [address] Isidro Heredia MD [address] [place] [address] Discharge Disposition: Home or Self [...] Christy RN - 10/24/2018 10:28 AM CDT [place] Rhe[facility]ology Post Infusion instructions You have [...] Sunday through 01-02 call the office at [phone] After hours or on the weekend call the exchange at [phone] If you have had lab work done [...] [facility] as your provider. Jody Christy, RN documented in this encounter Medications at Time of Discharge Medication Sig Dispensed Refills Start Date End Date atorvastatin (LIPITOR) 40 MG tablet Take 1 (one) tablet by mouth at bedtime pylbrgbmonu-tmpl-wtl ysorb, PF, 0.5-1-0.5 % SOLN Instill 1 [...] - 10/24/2018 10:21 AM CDT JOSE Deng [id number] 10/24/2018 Diagnosis: Rheumatoid arthritis without rheumatoid factor, multiple sites [M06.09]. Pt denies symptoms of infection or antibiotic use, no open wounds, or recent surgery, or plans for surgery in the next couple of weeks. Pt is aware that we use the 0-10 pain scale to assess discomfort. 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 desktop manager pt signs consent for treatment for [...] st Contact Info) Description 06/03/2024 1:00 PM CONSULTING MARINE ENGINEER Appointment [facility] - Rheumatology [address] [place] [address] [phone] 06/03/2024 2:00 PM CONSULTING MARINE ENGINEER Office Visit [facility] - Rheumatology [address] [place] [address] Gloria Smith MD [address] [place] [phone] documented as of this encounter Visit [...] mL/hr documented in this encounter Care Teams Obstetrics Gyn Relationship Specialty Start Date End Date Tomas Hyman MD [address] [facility] [address] [place] [address] PCP - General Family Medicine 09/05/18 Isidro Heredia MD Rheumatology 02/09/11 documented as of this encounter
--- OUTSIDE RECORDS SUMMARY | 2024-05-10 10:20 | XMS_ITS | Encounter Summary ---
Author Organization [facility] Address [address] [facility] [place] [address] Care Team Providers Care Order Processing Manager Name Role Phone Isidro Heredia MD Unavailable [phone] Tomas Hyman MD Primary Care Provider [phone] Encounter Details Date Type Department Care Team (Late Contact Info) Description 05/09/2019 Orders Only [facility] - Rheumatology [address] [place] [address] Gloria Smith [facility] [place] [address] Social History Tobacco Use Types [...] (Late Contact Info) Description 06/03/2024 1:00 PM COAL FEEDER OPERATOR Appointment [facility] - Rheumatology [address] [place] [address] 06/03/2024 2:00 PM COAL FEEDER OPERATOR Office Visit [facility] - Rheumatology [address] [place] [address] Gloria Smith MD [facility] [place] [address] documented as of this encounter Visit Diagnoses Not on filedocumented in this encounter Care Teams Order Processing Manager Relationship Specialty Start Date End Date Tomas Hyman MD [address] [place] [address] PCP - General Family Medicine 09/05/18 Isidro Heredia MD Rheumatology 02/09/11 documented as of this encounter
--- OUTSIDE RECORDS SUMMARY | 2024-05-10 10:20 | XMS_ITS | Encounter Summary ---
Author Organization [facility] Address [address] [facility] [place] [address] Care Team Providers Care Manager Post Name Role Phone Isidro Heredia MD Unavailable [phone] Tomas Hyman MD Primary Care Provider [phone] Reason for Visit * Reason Comments Establish Care pre lavon Encounter Details Date Type Department Care Team (Late st Contact Info) Description 01/08/2019 1:40 PM CDT Office Visit [facility] - Rheumatology [address] [place] [address] Gloria Smith MD [address] [place] [phone] Rheumatoid arthritis of multiple sites with [...] st Contact Info) Description 06/03/2024 1:00 PM LOG CUT OFF SAWYER Appointment [facility] - Rheumatology [address] [place] [address] [phone] 06/03/2024 2:00 PM LOG CUT OFF SAWYER Office Visit [facility] - Rheumatology [address] [place] [address] Gloria Smith MD [address] [place] [phone] documented as of this encounter Visit Diagnoses Diagnosis Rheumatoid arthritis of multiple sites with negative rheumatoid factor (HCC)- Primary documented in this encounter Care Teams Manager Post Relationship Specialty Start Date End Date Tomas Hyman MD [address] [place] [address] PCP - General Family Medicine 09/05/18 Isidro Heredia MD Rheumatology 02/09/11 documented as of this encounter
--- OUTSIDE RECORDS SUMMARY | 2024-05-10 10:20 | XMS_ITS | Encounter Summary ---
Author Organization [facility] Address [address] [facility] [place] [address] Care Team Providers Care Manager Trading Name Role Phone Isidro Heredia MD Unavailable [phone] Tomas Hyman MD Primary Care Provider [phone] Reason for Visit * Treatment (Routine) - Closed Specialty Diagnoses / Procedures Referred By Lawrence shah Referred To Contact Infusion Therapy Nurse Diagnoses Rheumatoid arthritis without rheumatoid factor, multiple sites (HCC) Procedures ND INFLIXIMAB INJECTION Isidro Heredia MD [address] [place] [address] [address] Referral ID Status Reason Start Date Expiration Date Visits Re quested Visits Authorized [id number] Closed 05/13/2018 04/29/2019 1 12 Encounter Details Date Type Department Care Team (Late st Contact Info) Description 01/24/2019 12:32 PM CDT - 01/24/2019 11:59 PM CDT Hospital Encounter [facility] Medical [facility] - Rheumatology [address] [place] [address] Gloria Smith MD [address] [place] [phone] Discharge Disposition: Home or Self Care [...] Sahu RN - 01/24/2019 1:18 PM CDT [place] Rheumatology Post Infusion instructions You have [...] Sunday through 01-02 call the office at [phone] After hours or on the weekend call the exchange at [phone] If you have had lab work done [...] 1 (one) tablet by mouth at bedtime theobajmmlt-yghu-lqv ysorb, PF, 0.5-1-0.5 % SOLN Instill 1 [...] - 01/24/2019 1:21 PM CDT JOSE Deng [id number] 01/24/2019 Diagnosis: Rheumatoid arthritis without rheumatoid factor, multiple sites [M06.09]. Pt denies symptoms of infection or antibiotic use, no open wounds, or recent surgery, or plans for surgery in the next couple of weeks. Pt is aware that we use the 0-10 pain scale to assess discomfort. 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 front window cashier pt signs consent for treatment for this [...] st Contact Info) Description 06/03/2024 1:00 PM HR OPERATIONS ADVISOR Appointment [facility] - Rheumatology [address] [place] [address] [phone] 06/03/2024 2:00 PM HR OPERATIONS ADVISOR Office Visit [facility] - Rheumatology [address] [place] [address] Gloria Smith MD [address] [place] [phone] documented as of this encounter Visit [...] documented in this encounter Care Teams Manager Trading Relationship Specialty Start Date End Date Tomas Hyman MD [address] [facility] [address] [place] [id number] PCP - General Family Medicine 09/05/18 Isidro Heredia MD Rheumatology 02/09/11 documented as of this encounter
--- OUTSIDE RECORDS SUMMARY | 2024-05-10 10:21 | XMS_ITS | Encounter Summary ---
Author Organization [facility] Address [address] [place] [address] Care Team Providers Care Director Of Product Design Name Role Phone Isidro Heredia MD Unavailable [phone] Tomas Hyman MD Primary Care Provider [phone] Encounter Details Date Type Department Care Team (Late Contact Info) Description 08/01/2017 Orders Only [facility] - Rheumatology [address] [place] [address] Isidro Heredia MD [address] [place] [address] Social History Tobacco Use Types Packs/Day [...] Contact Info) Description 06/03/2024 1:00 PM SENIOR ANALYST PROGRAMMER Appointment [facility] - Rheumatology [address] [place] [address] 06/03/2024 2:00 PM SENIOR ANALYST PROGRAMMER Office Visit [facility] - Rheumatology [address] [place] [address] Gloria Smith MD [address] [place] [phone] documented as of this encounter Procedures Procedure [...] CDT 08/01/2017 Narrative Resulting Agency Comment [facility] [address] ??[facility] [phone] Isidro Heredia MD LAB - HEMATOLOGY OR DERABLES [facility] INSURANCE BILL [address] [place] [address] * (ABNORMAL) COMPREHENSIVE METABOLIC PANEL (08/01/2017 1:00 [...] CDT 08/01/2017 Narrative Resulting Agency Comment [facility] [address] ??[facility] [id number] Isidro Heredia MD LAB - CHEMISTRY ORD ERABLES [facility] INSURANCE BILL [address] [place] [address] * (ABNORMAL) CBC W AUTO DIFFERENTIAL (08/01/2017 [...] CDT 08/01/2017 Narrative Resulting Agency Comment [facility] [place] [address] [facility] ??[facility] [id number] Isidro Heredia MD LAB - HEMATOLOGY OR DERABLES [facility] INSURANCE BILL [address] [place] [address] documented in this encounter Visit Diagnoses Not on filedocumented in this encounter Care Teams Director Of Product Design Relationship Specialty Start Date End Date Tomas Hyman MD [address] [place] [address] PCP - General Family Medicine 12/31/13 05/09/18 Isidro Heredia MD Rheumatology 02/09/11 documented as of this encounter
--- OUTSIDE RECORDS SUMMARY | 2024-05-10 10:21 | XMS_ITS | Encounter Summary ---
Author Organization [facility] Address [address] [facility] [address] Care Team Providers Care Oracle Bpm Consultant Name Role Phone Isidro Heredia MD Unavailable [phone] Tomas Hyman MD Primary Care Provider [phone] Reason for Visit * Reason Comments Rheumatoid Arthritis Encounter Details Date Type Department Care Team (Late st Contact Info) Description 10/24/2017 2:30 PM CDT Office Visit [facility] - Rheumatology [address] [place] [address] Isidro Heredia MD [address] [place] [address] Chronic right-sided low back pain with [...] Medication Side Effects none Walking trails in [place] BP Readings from Last 2 Encounters: 10/24/17 [...] 1 Tab by mouth once daily ??? Mlmmloqrqjn-Mqqphmyvc-Nic C-Mn (GLUCOSAMINE CHONDR 1500 COMPLX PO) Take [...] st Contact Info) Description 06/03/2024 1:00 PM BANDAGE WRAPPING MACHINE OPERATOR Appointment [facility] - Rheumatology [address] [place] [address] 06/03/2024 2:00 PM BANDAGE WRAPPING MACHINE OPERATOR Office Visit [facility] - Rheumatology [address] [place] [address] Gloria Smith MD [address] [place] [phone] documented as of this encounter Visit Diagnoses Diagnosis Chronic right-sided low back pain with right-sided sciatica- Primary Rheumatoid arthritis of multiple sites with negative rheumatoid factor (HCC) Chronic pain syndrome documented in this encounter Care Teams Oracle Bpm Consultant Relationship Specialty Start Date End Date Tomas Hyman MD [address] [facility] [address] [place] [address] PCP - General Family Medicine 12/31/13 05/09/18 Isidro Heredia MD Rheumatology 02/09/11 documented as of this encounter
--- OUTSIDE RECORDS SUMMARY | 2024-05-10 10:21 | XMS_ITS | Encounter Summary ---
Author Organization [facility] Address [address] [facility] [place] [address] Care Team Providers Care Emr Analyst Name Role Phone Isidro Heredia MD Unavailable Tomas Hyman MD Primary Care Provider [phone] Reason for Visit * Reason Comments Arthritis follow up Encounter Details Date Type Department Care Team (Late st Contact Info) Description 09/05/2018 11:15 AM CDT Office Visit [facility] - Rheumatology [address] [place] [address] Isidro Heredia MD [address] [place] [address] Chronic right-sided low back pain with [...] 2 times daily 180 capsule 3 ??? Qwmhmzsirtn-Ndhahqwob-Cqp C-Mn (GLUCOSAMINE CHONDR 1500 COMPLX PO) Take [...] Contact Info) Description 06/03/2024 1:00 PM LEAD JAVASCRIPT ENGINEER Appointment [facility] - Rheumatology [address] [place] [address] 06/03/2024 2:00 PM LEAD JAVASCRIPT ENGINEER Office Visit [facility] - Rheumatology [address] [place] [address] Gloria Smith MD [address] [place] [phone] documented as of this encounter Visit Diagnoses Diagnosis Chronic right-sided low back pain with right-sided sciatica- Primary Rheumatoid arthritis of multiple sites with negative rheumatoid factor (HCC) Chronic pain syndrome documented in this encounter Care Teams Emr Analyst Relationship Specialty Start Date End Date Tomas Hyman MD [address] [facility] [address] [place] [address] PCP - General Family Medicine 09/05/18 Isidro Heredia MD Rheumatology 02/09/11 documented as of this encounter
--- OUTSIDE RECORDS SUMMARY | 2024-05-10 10:21 | XMS_ITS | Encounter Summary ---
Author Organization [facility] Address [address] [place] [address] Care Team Providers Care Chrome Tanner Name Role Phone Isidro Heredia MD Unavailable [phone] Tomas Hyman MD Primary Care Provider [phone] Reason for Visit * Treatment (Routine) - Closed Specialty Diagnoses / Procedures Referred By Lawrence shah Referred To Contact Infusion Therapy Nurse Diagnoses Rheumatoid arthritis without rheumatoid factor, multiple sites (HCC) Procedures CT INJECTION TOCILIZUMAB 1 MG Isidro Heredia MD [address] [facility] [place] [address] [address] Referral ID Status Reason Start Date Expiration Date Visits Re quested Visits Authorized [id number] Closed 05/11/2017 04/29/2018 1 13 Encounter Details Date Type Department Care Team (Late st Contact Info) Description 09/03/2017 1:47 PM CDT - 09/03/2017 11:59 PM CDT Hospital Encounter [facility] - Rheumatology [address] [place] [address] Isidro Heredia MD [address] [facility] [place] [address] Discharge Disposition: Home or Self [...] Sahu RN - 09/03/2017 2:23 PM CDT [place] Rheumatology Post Infusion instructions [...] Sunday through 01-02 call the office at [phone] After hours or on the weekend call the exchange at [phone] If you have had lab work done [...] 09/03/2017 2:38 PM CDT JOSE Allred Deng [id number] 09/03/2017 Diagnosis: Rheumatoid arthritis without rheumatoid factor, [...] st Contact Info) Description 06/03/2024 1:00 PM SEWER SEPARATION DESIGNER Appointment [facility] - Rheumatology [address] [place] [address] [phone] 06/03/2024 2:00 PM SEWER SEPARATION DESIGNER Office Visit [facility] - Rheumatology [address] [place] [address] Gloria Smith MD [address] [place] [phone] documented as of this encounter Visit Diagnoses [...] mL/hr documented in this encounter Care Teams Chrome Tanner Relationship Specialty Start Date End Date Tomas Hyman MD [address] [facility] [address] [place] [address] PCP - General Family Medicine 12/31/13 05/09/18 Isidro Heredia MD Rheumatology 02/09/11 documented as of this encounter
--- OUTSIDE RECORDS SUMMARY | 2024-05-10 10:21 | XMS_ITS | Encounter Summary ---
Author Organization [facility] Address [address] [facility] [place] [address] Care Team Providers Care Finishing Machine Tender Name Role Phone Isidro Heredia MD Unavailable [phone] Tomas Hyman MD Primary Care Provider [phone] Reason for Visit * Reason Onset Date Comments MEDICATION REFILL 11/21/2017 Encounter Details Date Type Department Care Team (Late Contact Info) Description 11/21/2017 Refill [facility] - Rheumatology [address] [place] [address] Isidro Heredia MD [address] [place] [address] MEDICATION REFILL Social History Tobacco Use [...] (Late Contact Info) Description 06/03/2024 1:00 PM PACKAGE WINDER Appointment [facility] - Rheumatology [address] [place] [address] 06/03/2024 2:00 PM PACKAGE WINDER Office Visit [facility] - Rheumatology [address] [place] [address] Gloria Smith MD [address] [place] [phone] documented as of this encounter Visit Diagnoses Not on filedocumented in this encounter Care Teams Finishing Machine Tender Relationship Specialty Start Date End Date Tomas Hyman MD [address] [place] [address] PCP - General Family Medicine 12/31/13 05/09/18 Isidro Heredia MD Rheumatology 02/09/11 documented as of this encounter
--- OUTSIDE RECORDS SUMMARY | 2024-05-10 10:21 | XMS_ITS | Encounter Summary ---
Author Organization [facility] Address [address] [facility] [place] [address] Care Team Providers Care Pharmacology Professor Name Role Phone Isidro Heredia MD Unavailable Tomas Hyman MD Primary Care Provider [phone] Reason for Visit * Reason Comments Refill Request Encounter Details Date Type Department Care Team (Late Contact Info) Description 06/17/2017 Refill [facility] - Rheumatology [address] [place] [address] Isidro Heredia MD [address] [place] [address] Refill Request Social History Tobacco Use [...] (Late Contact Info) Description 06/03/2024 1:00 PM MEASUREMENT SUPERVISOR Appointment [facility] - Rheumatology [address] [place] [address] 06/03/2024 2:00 PM MEASUREMENT SUPERVISOR Office Visit [facility] Rheumatology [address] [place] [address] Gloria Smith MD [address] [place] [address] [address] documented as of this encounter Visit Diagnoses Not on filedocumented in this encounter Care Teams Pharmacology Professor Relationship Specialty Start Date End Date Tomas Hyman MD [address] [place] [address] PCP - General Family Medicine 12/31/13 05/09/18 Isidro Heredia MD Rheumatology 02/09/11 documented as of this encounter
--- OUTSIDE RECORDS SUMMARY | 2024-05-10 10:21 | XMS_ITS | Encounter Summary ---
Author Organization [facility] Address [address] [facility] [place] [address] Care Team Providers Care Stained Glass Artist Name Role Phone Isidro Heredia MD Unavailable [phone] Reason for Visit * Reason Comments Arthritis follow up Encounter Details Date Type Department Care Team (Late st Contact Info) Description 07/11/2018 10:15 AM CDT Office Visit [facility] - Rheumatology [address] [place] [address] [phone] Isidro Heredia MD [address] [place] [address] Abnormal LFTs (Primary Dx); Chronic right-sided [...] 2 times daily 180 capsule 3 ??? Biefjspgoel-Iwxluhfak-Uef C-Mn (GLUCOSAMINE CHONDR 1500 COMPLX PO) Take [...] Contact Info) Description 06/03/2024 1:00 PM MANAGER STUDY Appointment [facility] Rheumatology [address] [place] [address] 06/03/2024 2:00 PM MANAGER STUDY Office Visit [facility] - Rheumatology [address] [place] [address] [phone] Gloria Smith MD [address] [place] [phone] documented as of this encounter Visit Diagnoses Diagnosis Abnormal LFTs- Primary Other abnormal blood chemistry Chronic right-sided low back pain with right-sided sciatica Rheumatoid arthritis 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
--- OUTSIDE RECORDS SUMMARY | 2024-05-10 10:21 | XMS_ITS | Encounter Summary ---
Author Organization [facility] Address [address] [facility] [address] Care Team Providers Care Visitor Services Information Assistant Name Role Phone Isidro Heredia MD Unavailable [phone] Tomas Hyman MD Primary Care Provider [phone] Encounter Details Date Type Department Care Team (Latest Contact Info) Description 10/07/2018 11:45 AM CDT - 10/07/2018 1:20 PM CDT Hospital Encounter [facility] Pain Care [address] [place] [address] [place] [address] [place] [address] Discharge Disposition: Home or Self Care Social [...] Jiang RN - 10/07/2018 12:[address] [facility] Procedure [facility] Pain Discharge Instructions Selective Epidural [...] headache, or any other problems, please call [phone] or after hours call Dr. Mirza at [phone] and tell them your physician's name. The exchange will alert the physician community service organization director. If sedation is given: No sedation given. For Your Next Visit: No additional instructions. Other Instructions: May remove band-aid in 12 Hours. Return 1 week or per insurance. documented in this encounter Medications at Time of Discharge Medication Sig Dispensed Refills Start Date End Date atorvastatin (LIPITOR) 40 MG tablet Take 1 (one) tablet by mouth at bedtime wjrhelwatem-rgbw-kqm ysorb, PF, 0.5-1-0.5 % SOLN Instill 1 [...] st Contact Info) Description 06/03/2024 1:00 PM HVAC PROJECT ENGINEER Appointment [facility] - Rheumatology [address] [place] [address] 06/03/2024 2:00 PM HVAC PROJECT ENGINEER Office Visit [facility] - Rheumatology [address] [place] [address] Gloria Smith MD [address] [place] [phone] documented as of this encounter Visit [...] mL documented in this encounter Care Teams Visitor Services Information Assistant Relationship Specialty Start Date End Date Tomas Hyman MD [address] [facility] [address] [place] [address] PCP - General Family Medicine 09/05/18 Isidro Heredia MD Rheumatology 02/09/11 documented as of this encounter
--- OUTSIDE RECORDS SUMMARY | 2024-05-10 10:21 | XMS_ITS | Encounter Summary ---
Author Organization [facility] Address [address] [place] [address] Care Team Providers Care High School Music Instructor Name Role Phone Isidro Heredia MD Unavailable Tomas Hyman MD Primary Care Provider [phone] Encounter Details Date Type Department Care Team (Latest Contact Info) Description 2018 2:03 PM CDT - 2018 11:59 PM CDT Hospital Encounter [facility] Pain Care [address] [place] [address] [place] [address] [place] [address] Discharge Disposition: Home or Self Care Social [...] 1 (one) tablet by mouth at bedtime ooueidynibz-ucrw-eew ysorb, PF, 0.5-1-0.5 % SOLN Instill 1 [...] ??? buPROPion (WELLBUTRIN) 100 MG tablet ??? sxvdcvoojhl-iiuw-infycuxq, PF, (REFRESH OPTIVE ADVANCED PF) 0.5-1-0.5 % SOLN ??? carvedilol (COREG) 12.5 MG tablet ??? ferrous sulfate 325 (65 FE) MG tablet ??? gabapentin (NEURONTIN) 300 MG capsule ??? Jyaliwqfnxo-Tteictwxy-Kvn C-Mn (GLUCOSAMINE CHONDR 1500 COMPLX PO) ??? [...] identified, and marked by Dr. Mirza. Responsible road train driver is not needed due to [...] st Contact Info) Description 06/03/2024 1:00 PM POOL TABLE MECHANIC Appointment [facility] - Rheumatology [address] [place] [address] [phone] 06/03/2024 2:00 PM POOL TABLE MECHANIC Office Visit [facility] - Rheumatology [address] [place] [address] Gloria Smith MD [address] [place] [phone] Pending Results Name Type Priority Associated Diagnoses [...] mg documented in this encounter Care Teams High School Music Instructor Relationship Specialty Start Date End Date Tomas Hyman MD [address] [place] [address] PCP - General Family Medicine 09/05/18 Isidro Heredia MD Rheumatology 02/09/11 documented as of this encounter
--- OUTSIDE RECORDS SUMMARY | 2024-05-10 10:21 | XMS_ITS | Encounter Summary ---
Author Organization [facility] Address [address] [facility] [place] [address] Care Team Providers Care Psychology Lecturer Name Role Phone Isidro Heredia MD Unavailable [phone] Tomas Hyman MD Primary Care Provider [phone] Reason for Visit * Reason Onset Date Comments Appointment 01/14/2018 Encounter Details Date Type Department Care Team (Late st Contact Info) Description 01/14/[address] [facility] Medical [facility] - Rheumatology [address] [place] [address] Isidro Heredia MD [address] [place] [address] Appointment Social History Tobacco Use Types [...] st Contact Info) Description 06/03/2024 1:00 PM DRIVER MATERIAL HANDLER Appointment [facility] - Rheumatology [address] [place] [address] 06/03/2024 2:00 PM DRIVER MATERIAL HANDLER Office Visit [facility] - Rheumatology [address] [place] [address] Gloria Smith MD [address] [place] [phone] documented as of this encounter Visit Diagnoses Not on filedocumented in this encounter Care Teams Psychology Lecturer Relationship Specialty Start Date End Date Tomas Hyman MD [address] [facility] [address] [place] [address] PCP - General Family Medicine 12/31/13 05/09/18 Isidro Heredia MD Rheumatology 02/09/11 documented as of this encounter
--- OUTSIDE RECORDS SUMMARY | 2024-05-10 10:21 | XMS_ITS | Encounter Summary ---
Author Organization [facility] Address [address] [place] [address] Care Team Providers Care Gaming Dealer Name Role Phone Isidro Heredia MD Unavailable Tomas Hyman MD Primary Care Provider [phone] Encounter Details Date Type Department Care Team (Late Contact Info) Description 10/19/2017 Orders Only [facility] - Rheumatology [address] [place] [address] Isidro Heredia MD [address] [place] [address] Rheumatoid arthritis of multiple sites with [...] (Late Contact Info) Description 06/03/2024 1:00 PM BRANCHER Appointment [facility] - Rheumatology [address] [place] [address] 06/03/2024 2:00 PM BRANCHER Office Visit [facility] Rheumatology [address] [place] [address] Gloria Smith MD [address] [place], [place] [address], [place] [address] documented as of this encounter Procedures Procedure [...] PM CDT 10/24/2017 Narrative Resulting Agency Comment [facility] [address] [facility] ??[facility] [phone] Isidro Heredia MD LAB - HEMATOLOGY OR DERABLES [facility] INSURANCE BILL [address] [place] [address] * (ABNORMAL) COMPREHENSIVE METABOLIC PANEL (10/24/2017 1:30 [...] CDT 10/24/2017 Narrative Resulting Agency Comment [facility] [address] [facility] ??[facility] [phone] Isidro Heredia MD LAB - CHEMISTRY ORD ERABLES [facility] INSURANCE BILL [address] [place] [address] * (ABNORMAL) CBC W AUTO DIFFERENTIAL (10/24/2017 [...] 10/24/2017 Narrative Resulting Agency Comment [facility] [address] ??[facility] [phone] Isidro Heredia MD LAB - HEMATOLOGY OR DERABLES Performing Organization Address City/State/[facility] Co de Phone Number [facility] INSURANCE BILL [address] [place] [address] documented in this encounter Visit Diagnoses Diagnosis Rheumatoid arthritis of multiple sites with 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
--- OUTSIDE RECORDS SUMMARY | 2024-05-10 10:21 | XMS_ITS | Encounter Summary ---
Author Organization [facility] Address [address] [facility] [place] [address] Care Team Providers Care Gluing Crew Leader Name Role Phone Isidro Heredia MD Unavailable [phone] Tomas Hyman MD Primary Care Provider Encounter Details Date Type Department Care Team (Late Contact Info) Description 08/27/2017 Orders Only [facility] - Rheumatology [address] [place] [address] Isidro Heredia MD [address] [place] [address] Encounter for long-term (current) use of [...] (Late Contact Info) Description 06/03/2024 1:00 PM WAREHOUSE CLERK Appointment [facility] - Rheumatology [address] [place] [address] 06/03/2024 2:00 PM WAREHOUSE CLERK Office Visit [facility] Rheumatology [address] [place] [address] Song, Gloria, MD [address] [place], [place] [address], [place] [address] documented as of this encounter Procedures Procedure [...] CDT 09/03/2017 Narrative Resulting Agency Comment [facility] [place] [address] ??[facility] [phone] Isidro Heredia MD LAB - CHEMISTRY ORD ERABLES [facility] INSURANCE BILL [address] [place] [address] documented in this encounter Visit Diagnoses Diagnosis Encounter for long-term (current) use of medications- Primary Encounter for long-term (current) use of other medications documented in this encounter Care Teams Gluing Crew Leader Relationship Specialty Start Date End Date Tomas Hyman MD [address] [facility] [address] [place] [address] PCP - General Family Medicine 12/31/13 05/09/18 Isidro Heredia MD Rheumatology 02/09/11 documented as of this encounter
--- OUTSIDE RECORDS SUMMARY | 2024-05-10 10:21 | XMS_ITS | Encounter Summary ---
Author Organization [facility] Address [address] [facility] [address] Care Team Providers Care Wig Dresser Name Role Phone sIidro Heredia MD Unavailable [phone] Reason for Visit * Reason Comments Follow-up Encounter Details Date Type Department Care Team (Late st Contact Info) Description 05/16/2018 3:30 PM HOGSHEAD MAT ASSEMBLER Office Visit [facility] - Rheumatology [address] [place] [address] [phone] Isidro Heredia MD [address] [place] [address] Rheumatoid arthritis of multiple sites with [...] Comments Blood Pressure 143/75 05/16/2018 3:57 PM HOGSHEAD MAT ASSEMBLER Pulse 68 05/16/2018 3:57 PM HOGSHEAD MAT ASSEMBLER Temperature - - Respiratory Rate - - Oxygen Saturation - - Inhaled Oxygen Concentration - - Weight 105.7 kg (233 lb) 05/16/2018 3:57 PM HOGSHEAD MAT ASSEMBLER Height - - Body Mass Index 33.43 [...] 2 times daily 180 capsule 1 ??? Vdmzxxdarws-Tliynodxz-Xlo C-Mn (GLUCOSAMINE CHONDR 1500 COMPLX PO) Take [...] Follow up in office in 8 weeks HEAD MAT ASSEMBLER documented in this encounter Plan of Treatment Upcoming Encounters Date Type Department Care Team (Late st Contact Info) Description 06/03/2024 1:00 PM HOGSHEAD MAT ASSEMBLER Appointment [facility] - Rheumatology [address] [place] [address] [phone] 06/03/2024 2:00 PM HOGSHEAD MAT ASSEMBLER Office Visit [facility] - Rheumatology [address] [place] [address] Gloria Smith MD [address] [place] [phone] documented as of this encounter Visit Diagnoses [...] at 1800 $ Given 05/16/2018 5:34 PM HOGSHEAD MAT ASSEMBLER Right Shoulder triamcinolone acetonide (KENALOG-40) injection 80 mg 80 mg, Intra-articular, ONCE, 1 dose, On Gabriela 05/16/18 at 1800, Shake well before using. $ Given 05/16/2018 5:34 PM HOGSHEAD MAT ASSEMBLER 80 mg Right Shoulder documented in this encounter Care Teams Wig Dresser Relationship Specialty Start Date End Date Isidro Heredia MD Rheumatology 02/09/11 documented as of this encounter
--- OUTSIDE RECORDS SUMMARY | 2024-05-10 10:21 | XMS_ITS | Encounter Summary ---
Author Organization [facility] Address [address] [facility] [place] [address] Care Team Providers Care Bandmill Operator Name Role Phone Isidro Heredia MD Unavailable [phone] Encounter Details Date Type Department Care Team (Late Contact Info) Description 05/13/2018 Orders Only [facility] - Rheumatology [address] [place] [address] Isidro Heredia MD [address] [place] [address] Rheumatoid arthritis of multiple sites with [...] of this encounter Progress Notes * Lesa ePnnington - 07/15/2018 4:10 PM CDT mychart sent documented in this encounter Plan of Treatment Upcoming Encounters Date Type Department Care Team (Late Contact Info) Description 06/03/2024 1:00 PM POCKET SETTER LOCKSTITCH Appointment [facility] - Rheumatology [address] [place] [address] 06/03/2024 2:00 PM POCKET SETTER LOCKSTITCH Office Visit [facility] - Rheumatology [address] [place] [address] Gloria Smith MD [address] [place] [address] [place] [address] documented as of this encounter Procedures Procedure [...] CDT 07/11/2018 Narrative Resulting Agency Comment [facility] [place] [address] [facility] ??[facility] [phone] Isidro Heredia MD LAB - HEMATOLOGY OR DERABLES [facility] INSURANCE BILL [address] [place] [address] * (ABNORMAL) COMPREHENSIVE METABOLIC PANEL (07/11/2018 9:30 [...] CDT 07/11/2018 Narrative Resulting Agency Comment [facility] [address] ??[facility] [phone] Isidro Heredia MD LAB - CHEMISTRY ORD ERABLES [facility] INSURANCE BILL [address] [place] [address] * (ABNORMAL) CBC WITH DIFFERENTIAL (07/11/2018 9:30 [...] CDT 07/11/2018 Narrative Resulting Agency Comment [facility] [address] ??[facility] [phone] Isidro Heredia MD LAB - HEMATOLOGY OR DERABLES [facility] INSURANCE BILL [address] [place] [address] documented in this encounter Visit Diagnoses Diagnosis Rheumatoid arthritis of multiple sites with negative rheumatoid factor (HCC)- Primary documented in this encounter Care Teams Bandmill Operator Relationship Specialty Start Date End Date Isidro Heredia MD Rheumatology 02/09/11 documented as of this encounter
--- OUTSIDE RECORDS SUMMARY | 2024-05-10 10:21 | XMS_ITS | Encounter Summary ---
Author Organization [facility] Address [address] [facility] [place] [address] Care Team Providers Care Inspector Advanced Composite Name Role Phone Isidro Heredia MD Unavailable [phone] Tomas Hyman MD Primary Care Provider [phone] Encounter Details Date Type Department Care Team (Late Contact Info) Description 12/18/2017 Orders Only [facility] - Rheumatology [address] [place] [address] Isidro Heredia MD [address] [place] [address] Encounter for long-term (current) use of [...] (Late Contact Info) Description 06/03/2024 1:00 PM HEAD SAMPLER Appointment [facility] - Rheumatology [address] [place] [address] 06/03/2024 2:00 PM HEAD SAMPLER Office Visit [facility] Rheumatology [address] [place] [address] Song, Gloria, MD [address] [place], [place] [address], [place] [address] documented as of this encounter Procedures Procedure [...] CDT 12/19/2017 Narrative Resulting Agency Comment [facility] [address] ??[place] [phone] Isidro Heredia MD LAB - CHEMISTRY ORD ERABLES Performing Organization Address [facility] Co de Phone Number [facility] INSURANCE BILL [address] [place] [address] * ERYTHROCYTE SEDIMENTATION RATE (12/19/2017 1:00 PM CDT) Erythrocyte Sedimentation Rate Westergren 3 0 - 30 mm/hr [facility] INSURANCE BILL Blood BLOOD SPECIMEN / Unknown 12/19/2017 1:00 PM CDT 12/19/2017 Narrative Resulting Agency Comment [facility] [address] ??[place] [phone] Isidro Heredia MD LAB - HEMATOLOGY OR DERABLES Performing Organization Address [facility] Co de Phone Number [facility] INSURANCE BILL [address] [place] [address] * (ABNORMAL) COMPREHENSIVE METABOLIC PANEL (12/19/2017 1:00 [...] CDT 12/19/2017 Narrative Resulting Agency Comment [facility] [address] [facility] ??[facility] [phone] Isidro Heredia MD LAB - CHEMISTRY ORD ERABLES [facility] INSURANCE BILL [address] [place] [address] * (ABNORMAL) CBC WITH DIFFERENTIAL (12/19/2017 1:00 [...] CDT 12/19/2017 Narrative Resulting Agency Comment [facility] [address] [facility] ??[facility] [phone] Isidro Heredia MD LAB - HEMATOLOGY OR DERABLES [facility] INSURANCE BILL [address] [place] [address] documented in this encounter Visit Diagnoses Diagnosis Encounter for long-term (current) use of medications- Primary Encounter for long-term (current) use of other medications documented in this encounter Care Teams Inspector Advanced Composite Relationship Specialty Start Date End Date Tomas Hyman MD [address] [facility] [address] [place] [address] PCP - General Family Medicine 12/31/13 05/09/18 Isidro Heredia MD Rheumatology 02/09/11 documented as of this encounter
--- OUTSIDE RECORDS SUMMARY | 2024-05-10 10:21 | XMS_ITS | Encounter Summary ---
Author Organization [facility] Address [address] [facility] [place] [address] Care Team Providers Care Printed Circuit Board Preassembler Name Role Phone Isidro Heredia MD Unavailable [phone] Tomas Hyman MD Primary Care Provider [phone] Reason for Visit * Reason Comments Refill Request Encounter Details Date Type Department Care Team (Late Contact Info) Description 06/19/2017 Refill [facility] - Rheumatology [address] [place] [address] Isidro Heredia MD [address] [place] [address] Refill Request Social History Tobacco Use [...] (Late Contact Info) Description 06/03/2024 1:00 PM APPRENTICE PHOTOGRAPHER Appointment [facility] - Rheumatology [address] [place] [address] 06/03/2024 2:00 PM APPRENTICE PHOTOGRAPHER Office Visit [facility] Rheumatology [address] [place] [address] Gloria Smith MD [address] [place], [place] [address], [place] [address] documented as of this encounter Visit Diagnoses Not on filedocumented in this encounter Care Teams Printed Circuit Board Preassembler Relationship Specialty Start Date End Date Tomas Hyman MD [address] [place] [address] PCP - General Family Medicine 12/31/13 05/09/18 Isidro Heredia MD Rheumatology 02/09/11 documented as of this encounter
--- OUTSIDE RECORDS SUMMARY | 2024-05-10 10:21 | XMS_ITS | Encounter Summary ---
Author Organization [facility] Address [address] [place] [address] Care Team Providers Care Security Vehicle Patrol Officer Name Role Phone Isidro Heredia MD Unavailable [phone] Tomas Hyman MD Primary Care Provider [phone] Reason for Visit * Treatment (Routine) - Closed Specialty Diagnoses / Procedures Referred By Lawrence shah Referred To Contact Infusion Therapy Nurse Diagnoses Rheumatoid arthritis without rheumatoid factor, multiple sites (HCC) Procedures ME INFLIXIMAB INJECTION Isidro Heredia MD [address] [place] [address] [address] Referral ID Status Reason Start Date Expiration Date Visits Re quested Visits Authorized [id number] Closed 02/28/2018 04/29/2018 1 6 Encounter Details Date Type Department Care Team (Late st Contact Info) Description 03/27/2018 9:53 AM HOT TOP LINER - 03/27/2018 11:59 PM HOT TOP LINER Hospital Encounter [facility] Medical [facility] - Rheumatology [address] [place] [address] Isidro Heredia MD [address] [place] [address] Discharge Disposition: Home or Self [...] Comments Blood Pressure 152/68 03/27/2018 1:00 PM HOT TOP LINER Pulse 76 03/27/2018 1:00 PM HOT TOP LINER Temperature 36.6 ??C (97.9 ??F) 03/27/2018 10:[address] Respiratory Rate 18 03/27/2018 1:00 PM HOT TOP LINER Oxygen Saturation - - Inhaled Oxygen Concentration - - Weight 104.3 kg (230 lb) 03/27/2018 10:11 AM HOT TOP LINER Height - - Body Mass Index 33 01/11/2016 3:12 PM CDT documented in this encounter Discharge Instructions * Discharge Instructions* Jody Sahu RN - 03/27/2018 10:25 AM HOT TOP LINER [place] Rheumatology Post Infusion instructions You have [...] through Sunday 9-5 call the office at [phone] After hours or on the weekend call the exchange at [phone] If you have had lab work done [...] Hospital as your provider. Jody Sahu RN TOP LINER documented in this encounter Medications at [...] 03/27/2018 10:27 AM CST INFUSIONS Chalino Deng [id number] 03/27/2018 Diagnosis: Rheumatoid arthritis without rheumatoid factor, [...] other signs of hypersensitivity. Jody Sahu RN TOP LINER documented in this encounter Plan of Treatment Upcoming Encounters Date Type Department Care Team (Late st Contact Info) Description 06/03/2024 1:00 PM HOT TOP LINER Appointment [facility] - Rheumatology [address] [place] [address] 06/03/2024 2:00 PM HOT TOP LINER Office Visit [facility] - Rheumatology [address] [place] [address] Gloria Smith MD [address] [place] [phone] documented as of this encounter Visit Diagnoses [...] filter. $ New Bag/Syringe 03/27/2018 10:20 AM HOT TOP LINER 300 mg 135 mL/hr documented in this encounter Care Teams Security Vehicle Patrol Officer Relationship Specialty Start Date End Date Tomas Hyman MD [address] [place] [address] PCP - General Family Medicine 12/31/13 05/09/18 Isidro Heredia MD Rheumatology 02/09/11 documented as of this encounter
--- OUTSIDE RECORDS SUMMARY | 2024-05-10 10:21 | XMS_ITS | Encounter Summary ---
Author Organization [facility] Address [address] [facility] [place] [address] Care Team Providers Care Metal Casket Maker Name Role Phone Isidro Heredia MD Unavailable [phone] Tomas Hyman MD Primary Care Provider [phone] Reason for Visit * Treatment (Routine) - Closed Specialty Diagnoses / Procedures Referred By Lawrence shah Referred To Contact Infusion Therapy Nurse Diagnoses Rheumatoid arthritis without rheumatoid factor, multiple sites (HCC) Procedures [place] INJECTION TOCILIZUMAB 1 MG Isidro Heredia MD [address] [facility] [place] [address] [address] Referral ID Status Reason Start Date Expiration Date Visits Re quested Visits Authorized [id number] Closed 05/11/2017 04/29/2018 1 13 Encounter Details Date Type Department Care Team (Late st Contact Info) Description 10/24/2017 1:17 PM CDT - 10/24/2017 11:59 PM CDT Hospital Encounter [facility] - Rheumatology [address] [place] [address] Isidro Heredia MD [address] [facility] [address] Discharge Disposition: Home or Self [...] Sahu RN - 10/24/2017 1:51 PM CDT [place] Rheumatology Post Infusion instructions [...] Sunday through 01-02 call the office at [phone] After hours or on the weekend call the exchange at [phone] If you have had lab work done [...] 10/24/2017 2:10 PM CDT JOSE Allred Deng [id number] 10/24/2017 Diagnosis: Rheumatoid arthritis without rheumatoid factor, [...] st Contact Info) Description 06/03/2024 1:00 PM ORDER ANALYST Appointment [facility] - Rheumatology [address] [place] [address] [phone] 06/03/2024 2:00 PM ORDER ANALYST Office Visit [facility] - Rheumatology [address] [place] [address] [phone] Gloria Smith MD [address] [place] [phone] documented as of this encounter Visit Diagnoses [...] mL/hr documented in this encounter Care Teams Metal Casket Maker Relationship Specialty Start Date End Date Tomas Hyman MD [address] [facility] [address] [place] [address] PCP - General Family Medicine 12/31/13 05/09/18 Isidro Heredia MD Rheumatology 02/09/11 documented as of this encounter
--- OUTSIDE RECORDS SUMMARY | 2024-05-10 10:21 | XMS_ITS | Encounter Summary ---
Author Organization [facility] Address [address] [place] [address] Care Team Providers Care Bleach Range Operator Name Role Phone Isidro Heredia MD Unavailable [phone] Tomas Hyman MD Primary Care Provider [phone] Reason for Visit * Reason Onset Date Comments MEDICATION REFILL 12/19/2017 Encounter Details Date Type Department Care Team (Late Contact Info) Description 12/19/2017 Refill [facility] Medical [facility] - Rheumatology [address] [place] [address] [phone] Isidro Heredia MD [address] [place] [address] MEDICATION REFILL Social History Tobacco Use [...] Contact Info) Description 06/03/2024 1:00 PM OIL EXPERT Appointment [facility] - Rheumatology [address] [place] [address] 06/03/2024 2:00 PM OIL EXPERT Office Visit [facility] - Rheumatology [address] [place] [address] Gloria Smith MD [address] [place] [phone] documented as of this encounter Visit Diagnoses Not on filedocumented in this encounter Care Teams Bleach Range Operator Relationship Specialty Start Date End Date Tomas Hyman MD [address] [place] [address] PCP - General Family Medicine 12/31/13 05/09/18 Isidro Heredia MD Rheumatology 02/09/11 documented as of this encounter
--- OUTSIDE RECORDS SUMMARY | 2024-05-10 10:21 | XMS_ITS | Encounter Summary ---
Author Organization [facility] Address [address] [place] [address] Care Team Providers Care Music Instructor Name Role Phone Isidro Heredia MD Unavailable [phone] Tomas Hyman MD Primary Care Provider [phone] Reason for Visit * Treatment (Routine) - Closed Specialty Diagnoses / Procedures Referred By Lawrence shah Referred To Contact Infusion Therapy Nurse Diagnoses Rheumatoid arthritis without rheumatoid factor, multiple sites (HCC) Procedures [place] INJECTION TOCILIZUMAB 1 MG Isidro Heredia MD [address] [facility] [place] [address] [address] Referral ID Status Reason Start Date Expiration Date Visits Re quested Visits Authorized [id number] Closed 05/11/2017 04/29/2018 1 13 Encounter Details Date Type Department Care Team (Late st Contact Info) Description 12/19/2017 1:00 PM CDT - 12/19/2017 11:59 PM CDT Hospital Encounter [facility] Medical [facility] - Rheumatology [address] [place] [address] Isidro Heredia MD [address] [facility] [place] [address] Discharge Disposition: Home or Self [...] Christy RN - 12/19/2017 1:40 PM CDT [place] Rheumatology Post Infusion instructions [...] Sunday through 01-02 call the office at [phone] After hours or on the weekend call the exchange at [phone] If you have had lab work done [...] [facility] Jody Christy RN [...] - 12/19/2017 1:45 PM CDT JOSE Deng [id number] 12/19/2017 Diagnosis: Rheumatoid arthritis without rheumatoid factor, [...] st Contact Info) Description 06/03/2024 1:00 PM SIDER Appointment [facility] - Rheumatology [address] [place] [address] 06/03/2024 2:00 PM SIDER Office Visit [facility] - Rheumatology [address] [place], [place] [address] [address] Gloria Smith MD [address] [place] [address] [place] [address] documented as of this encounter Visit Diagnoses [...] documented in this encounter Care Teams Music Instructor Relationship Specialty Start Date End Date Tomas Hyman MD [address] [address] [address] [place] [address] PCP - General Family Medicine 12/31/13 05/09/18 Isidro Heredia MD Rheumatology 02/09/11 documented as of this encounter
--- OUTSIDE RECORDS SUMMARY | 2024-05-10 10:21 | XMS_ITS | Encounter Summary ---
Author Organization [facility] Address [address] [place] [address] Care Team Providers Care Manager Ambulatory Name Role Phone Isidro Heredia MD Unavailable [phone] Tomas Hyman MD Primary Care Provider [phone] Encounter Details Date Type Department Care Team (Late st Contact Info) Description 03/07/2018 11:15 AM ZIPPER REPAIRER Office Visit [facility] Medical [facility] - Rheumatology [address] [place] [address] Isidro Heredia MD [address] [place] [address] Subacromial bursitis (Primary Dx); Rheumatoid arthritis [...] Comments Blood Pressure 133/81 03/07/2018 11:38 AM ZIPPER REPAIRER Pulse 85 03/07/2018 11:38 AM ZIPPER REPAIRER Temperature - - Respiratory Rate - - Oxygen Saturation - - Inhaled Oxygen Concentration - - Weight 103 kg (227 lb) 03/07/2018 11:38 AM ZIPPER REPAIRER Height - - Body Mass Index 32.57 [...] 1 Tab by mouth once daily ??? Zdemxgjpaso-Vdznljmma-Sov C-Mn (GLUCOSAMINE CHONDR 1500 COMPLX PO) Take [...] Plan: Plan Orders Placed This Encounter ??? [place] DRAIN/INJECT LARGE JOINT/BURSA ??? DISCONTD: oxyCODONE-acetaminophen (PERCOCET) [...] Follow up in office in 8 weeks ER REPAIRER documented in this encounter Plan of Treatment Upcoming Encounters Date Type Department Care Team (Late st Contact Info) Description 06/03/2024 1:00 PM ZIPPER REPAIRER Appointment [facility] - Rheumatology [address] [place] [address] [phone] 06/03/2024 2:00 PM ZIPPER REPAIRER Office Visit [facility] - Rheumatology [address] [place] [address] Gloria Smith MD [address] [place] [phone] documented as of this encounter Visit [...] at 1615 $ Given 03/07/2018 3:50 PM ZIPPER REPAIRER Left Shoulder triamcinolone acetonide (KENALOG-40) injection 80 mg 80 mg, Intra-articular, ONCE, 1 dose, On Gabriela 03/07/18 at 1615, Shake well before using. $ Given 03/07/2018 3:51 PM ZIPPER REPAIRER 80 mg Left Shoulder documented in this encounter Care Teams Manager Ambulatory Relationship Specialty Start Date End Date Tomas Hyman MD [address] [facility] [address] [place] [address] PCP - General Family Medicine 12/31/13 05/09/18 Isidro Heredia MD Rheumatology 02/09/11 documented as of this encounter
--- OUTSIDE RECORDS SUMMARY | 2024-05-10 10:21 | XMS_ITS | Encounter Summary ---
Author Organization [facility] Address [address] [place] [address] Care Team Providers Care Lift Slab Operator Name Role Phone Isidro Heredia MD Unavailable [phone] Tomas Hyman MD Primary Care Provider [phone] Encounter Details Date Type Department Care Team (Latest Contact Info) Description 2018 12:45 PM CDT - 2018 2:02 PM CDT Hospital Encounter [facility] Pain Care [address] [place], [place] [id number] [place] [address] [place] [address] Discharge Disposition: Home or Self Care Social [...] Mckinney RN - 2018 2:02 PM CDT [facility] Procedure Center Pain Discharge Instructions [...] headache, or any other problems, please call [phone] or after hours callDr. Mirza at [phone] and tell them your physician's name. The exchange will alert the physician marketing communication manager. If sedation is given: No sedation given. For Your Next Visit: No additional instructions. Other Instructions: May remove band-aid in 12 Hours. Return in 1 week for TFE #3. documented in this encounter Medications at Time of Discharge Medication Sig Dispensed Refills Start Date End Date atorvastatin (LIPITOR) 40 MG tablet Take 1 (one) tablet by mouth at bedtime jvjmudyilay-spky-iek ysorb, PF, 0.5-1-0.5 % SOLN Instill 1 [...] st Contact Info) Description 06/03/2024 1:00 PM SEWING MACHINE MECHANIC Appointment [facility] - Rheumatology [address] [place] [address] [phone] 06/03/2024 2:00 PM SEWING MACHINE MECHANIC Office Visit [facility] - Rheumatology [address] [place] [address] Glroia Smith MD [address] [place] [phone] documented as of this encounter Visit Diagnoses Not on filedocumented in this encounter Care Teams Lift Slab Operator Relationship Specialty Start Date End Date Tomas Hyman MD [address] [place] [address] PCP - General Family Medicine 09/05/18 Isidro Heredia MD Rheumatology 02/09/11 documented as of this encounter
--- OUTSIDE RECORDS SUMMARY | 2024-05-10 10:21 | XMS_ITS | Encounter Summary ---
Author Organization [facility] Address [address] [facility] [place] [address] Care Team Providers Care Musical Instrument Supervisor Name Role Phone Isidro Heredia MD Unavailable [phone] Reason for Visit * Treatment (Routine) - Closed Specialty Diagnoses / Procedures Referred By Contac t Referred To Contact Infusion Therapy Nurse Diagnoses Rheumatoid arthritis without rheumatoid factor, multiple sites (HCC) Procedures ND INFLIXIMAB INJECTION Isidro Heredia MD [address] [place] [address] [address] Referral ID Status Reason Start Date Expiration Date Visits Re quested Visits Authorized [id number] Closed 05/13/2018 04/29/2019 1 12 Encounter Details Date Type Department Care Team (Late st Contact Info) Description 07/11/2018 9:17 AM CDT - 07/11/2018 11:59 PM CDT Hospital Encounter [facility] Medical [facility] - Rheumatology [address] [place] [address] Isidro Heredia MD [address] [place] [address] Discharge Disposition: Home or Self [...] Sahu RN - 07/11/2018 10:01 AM CDT [place] Rheumatology Post Infusion instructions You have received [...] through Sunday 9-5 call the office at [phone] After hours or on the weekend call the exchange at [phone] If you have had lab work done [...] 07/11/2018 10:03 AM CDT JOSE Chalino Deng [id number] 07/11/2018 Diagnosis: Rheumatoid arthritis without rheumatoid factor, [...] st Contact Info) Description 06/03/2024 1:00 PM PHOTOGRAPHIC EQUIPMENT INSPECTOR Appointment [facility] - Rheumatology [address] [place] [address] 06/03/2024 2:00 PM PHOTOGRAPHIC EQUIPMENT INSPECTOR Office Visit [facility] - Rheumatology [address] [place] [address] Gloria Smith MD [address] [place] [phone] documented as of this encounter Visit [...] mL/hr documented in this encounter Care Teams Musical Instrument Supervisor Relationship Specialty Start Date End Date Isidro Heredia MD Rheumatology 02/09/11 documented as of this encounter
--- OUTSIDE RECORDS SUMMARY | 2024-05-10 10:21 | XMS_ITS | Encounter Summary ---
Author Organization [facility] Address [address] [facility] [place] [address] Care Team Providers Care Boring Machine Operator Production Name Role Phone Isidro Heredia MD Unavailable [phone] Tomas Hyman MD Primary Care Provider [phone] Reason for Visit * Reason Onset Date Comments Follow-up 02/26/2018 Encounter Details Date Type Department Care Team (Late Contact Info) Description 02/26/2018 Telephone [facility] Medical [facility] - Rheumatology [address] [place] [address] Isidro Heredia MD [address] [place] [address] Follow-up Social History Tobacco Use Types [...] Contact Info) Description 06/03/2024 1:00 PM CONCRETE SWIMMING POOL INSTALLER Appointment [facility] - Rheumatology [address] [place] [address] [phone] 06/03/2024 2:00 PM CONCRETE SWIMMING POOL INSTALLER Office Visit [facility] - Rheumatology [address] [place] [address] [phone] Gloria Smith MD [address] [place] [phone] documented as of this encounter Visit Diagnoses Not on filedocumented in this encounter Care Teams Boring Machine Operator Production Relationship Specialty Start Date End Date Tomas Hyman MD [address] [facility] [address] [place] [address] PCP - General Family Medicine 12/31/13 05/09/18 Isidro Heredia MD Rheumatology 02/09/11 documented as of this encounter
--- OUTSIDE RECORDS SUMMARY | 2024-05-10 10:21 | XMS_ITS | Encounter Summary ---
Author Organization [facility] Address [address] [place] [address] Care Team Providers Care Clinical Program Manager Name Role Phone Isidro Heredia MD Unavailable Tomas Hyman MD Primary Care Provider [phone] Reason for Visit * Treatment (Routine) - Closed Specialty Diagnoses / Procedures Referred By Lawrence shah Referred To Contact Infusion Therapy Nurse Diagnoses Rheumatoid arthritis without rheumatoid factor, multiple sites (HCC) Procedures [place] INJECTION TOCILIZUMAB 1 MG Isidro Heredia MD [address] [place] [address] [address] Referral ID Status Reason Start Date Expiration Date Visits Re quested Visits Authorized [id number] Closed 05/11/2017 04/29/2018 1 13 Encounter Details Date Type Department Care Team (Late st Contact Info) Description 11/21/2017 1:30 PM CDT - 11/21/2017 11:59 PM CDT Hospital Encounter [facility] Medical [facility] - Rheumatology [address] [place] [address] Isidro Heredia MD [address] [facility] [place] [address] Discharge Disposition: Home or Self [...] Sahu RN - 11/21/2017 2:11 PM CDT [place] Rheumatology Post Infusion instructions [...] Sunday through 01-02 call the office at [phone] After hours or on the weekend call the exchange at [phone] If you have had lab work done [...] - 11/21/2017 2:14 PM CDT JOSE Deng [id number] 11/21/2017 Diagnosis: Rheumatoid arthritis without rheumatoid factor, multiple sites [M06.09]. Pt denies symptoms of infection or antibiotic use, no open wounds, or recent surgery, or plans for surgery in the next couple of weeks. Pt is aware that we use the 0-10 pain scale to assess discomfort. 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 desktop support manager pt signs consent for treatment for [...] st Contact Info) Description 06/03/2024 1:00 PM SPECIFICATION MANAGER Appointment [facility] - Rheumatology [address] [place] [address] 06/03/2024 2:00 PM SPECIFICATION MANAGER Office Visit [facility] - Rheumatology [address] [place] [address] Gloria Smith MD [address] [place] [phone] documented as of this encounter Visit Diagnoses [...] documented in this encounter Care Teams Clinical Program Manager Relationship Specialty Start Date End Date Tomas Hyman MD [address] [facility] [address] [place] [address] PCP - General Family Medicine 12/31/13 05/09/18 Isidro Heredia MD Rheumatology 02/09/11 documented as of this encounter
--- OUTSIDE RECORDS SUMMARY | 2024-05-10 10:21 | XMS_ITS | Encounter Summary ---
Author Organization [facility] Address [address] [facility] [place] [address] Care Team Providers Care Golf Ball Molder Name Role Phone Isidro Heredia MD Unavailable [phone] Tomas Hyman MD Primary Care Provider [phone] Reason for Visit * Reason Comments Rheumatoid Arthritis Encounter Details Date Type Department Care Team (Late st Contact Info) Description 08/01/2017 2:15 PM CDT Office Visit [facility] - Rheumatology [address] [place] [address] Isidro Heredia MD [address] [place] [address] Abnormal LFTs (Primary Dx); Chronic right-sided [...] 1 Tab by mouth once daily ??? Vkrothxdsvi-Xulcisqtm-Mqt C-Mn (GLUCOSAMINE CHONDR 1500 COMPLX PO) Take [...] cc's of tac with 1 cc 2% owtpd0gkyc were injected in the right shoulder Triceps tendon . 0 cc's of synovial fluid were aspirated. Patient tolerated procedure well without complications. Plan: Plan Orders Placed This Encounter ??? ND DRAIN/INJECT LARGE JOINT/BURSA ??? oxyCODONE-acetaminophen (PERCOCET) 5-325 [...] Contact Info) Description 06/03/2024 1:00 PM PAINTER AND GRADER CORK Appointment [facility] - Rheumatology [address] [place] [address] [phone] 06/03/2024 2:00 PM PAINTER AND GRADER CORK Office Visit [facility] - Rheumatology [address] [place] [address] Gloria Smith MD [address] [place] [phone] documented as of this encounter Visit [...] Shoulder documented in this encounter Care Teams Golf Ball Molder Relationship Specialty Start Date End Date Tomas Hyman MD [address] [place] [address] PCP - General Family Medicine 12/31/13 05/09/18 Isidro Heredia MD Rheumatology 02/09/11 documented as of this encounter
--- OUTSIDE RECORDS SUMMARY | 2024-05-10 10:21 | XMS_ITS | Encounter Summary ---
Author Organization [facility] Address [address] [facility] [place] [address] Care Team Providers Care Brush Hand Name Role Phone Isidro Heredia MD Unavailable [phone] Tomas Hyman MD Primary Care Provider [phone] Encounter Details Date Type Department Care Team (Latest Contact Info) Description 10/07/2018 1:21 PM CDT - 10/07/2018 11:59 PM T Hospital Encounter [facility] Pain Care [address] [place], [place] [phone] [place] [address] [place] [phone] Discharge Disposition: Home or Self Care Social [...] 1 (one) tablet by mouth at bedtime kmvucucrvmg-llrb-fzb ysorb, PF, 0.5-1-0.5 % SOLN Instill 1 [...] ??? buPROPion (WELLBUTRIN) 100 MG tablet ??? zanckhwgaxf-jtkj-mqbhqanr, PF, (REFRESH OPTIVE ADVANCED PF) 0.5-1-0.5 % SOLN ??? carvedilol (COREG) 12.5 MG tablet ??? ferrous sulfate 325 (65 FE) MG tablet ??? gabapentin (NEURONTIN) 300 MG capsule ??? Enjbcxywzyo-Oxusaibhq-Buq C-Mn (GLUCOSAMINE CHONDR 1500 COMPLX PO) ??? [...] identified, and marked by Dr. Mirza. Responsible straight truck driver is not needed due to [...] st Contact Info) Description 06/03/2024 1:00 PM ADMINISTRATION MANAGER Appointment [facility] - Rheumatology [address] [place] [address] 06/03/2024 2:00 PM ADMINISTRATION MANAGER Office Visit [facility] - Rheumatology [address] [place] [address] Gloria Smith MD [address] [place] [phone] documented as of this encounter Procedures [...] buPROPion (WELLBUTRIN) 100 MG tablet ? ? lzkvzgxzmve-nuzi-jsfyjgsb, PF, (REFRESH OPTIVE ADVANCED PF) 0.5-1-0.5 % SOLN ? ? carvedilol (COREG) 12.5 MG tablet ? ? ferrous sulfate 325 (65 FE) MG tablet ? ? gabapentin (NEURONTIN) 300 MG capsule ? ? Jrrkwmyexto-Pululipzr-Tuj C-Mn (GLUCOSAMINE CHONDR 1500 COMPLX PO) ? [...] identified, and marked by Dr. Mirza. ??Responsible straight truck driver is not needed due to [...] unspecified documented in this encounter Care Teams Brush Hand Relationship Specialty Start Date End Date Tomas Hyman MD [address] [facility] [address] [place] [address] PCP - General Family Medicine 5/9/19 Isidro Heredia MD Rheumatology 02/09/11 documented as of this encounter
--- OUTSIDE RECORDS SUMMARY | 2024-05-10 10:21 | XMS_ITS | Encounter Summary ---
Author Organization [facility] Address [address] [facility] [place] [address] Care Team Providers Care Digital Media Analyst Name Role Phone Isidro Heredia MD Unavailable [phone] Tomas Hyman MD Primary Care Provider [phone] Reason for Visit * Treatment (Routine) - Closed Specialty Diagnoses / Procedures Referred By Lawrence shah Referred To Contact Infusion Therapy Nurse Diagnoses Rheumatoid arthritis without rheumatoid factor, multiple sites (HCC) Procedures [place] INJECTION TOCILIZUMAB 1 MG Isidro Heredia MD [address] [facility] [place] [address] [address] Referral ID Status Reason Start Date Expiration Date Visits Re quested Visits Authorized [id number] Closed 05/11/2017 04/29/2018 1 13 Encounter Details Date Type Department Care Team (Late st Contact Info) Description 08/01/2017 12:53 PM CDT - 08/01/2017 11:59 PM CDT Hospital Encounter [facility] - Rheumatology [address] [place] [address] Isidro Heredia MD [address] [facility] [place] [address] Discharge Disposition: Home or Self [...] Sahu RN - 08/01/2017 1:21 PM CDT [place] Rheumatology Post Infusion instructions [...] Sunday through 01-02 call the office at [phone] After hours or on the weekend call the exchange at [phone] If you have had lab work done [...] 08/01/2017 1:39 PM CDT JOSE Chalino Deng [id number] 08/01/2017 Diagnosis: Rheumatoid arthritis without rheumatoid factor, multiple sites [M06.09]. Pt denies symptoms of infection or antibiotic use, no open wounds, or recent surgery, or plans for surgery in the next couple of weeks. Pt is aware that we use the 0-10 pain scale to assess discomfort. 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 front end loader driver pt signs consent for treatment for [...] st Contact Info) Description 06/03/2024 1:00 PM POLEYARD SUPERVISOR Appointment [facility] - Rheumatology [address] [place] [address] [phone] 06/03/2024 2:00 PM POLEYARD SUPERVISOR Office Visit [facility] - Rheumatology [address] [place] [address] Gloria Smith MD [address] [place] [phone] documented as of this encounter Visit [...] mg documented in this encounter Care Teams Digital Media Analyst Relationship Specialty Start Date End Date Tomas Hyman MD [address] [facility] [address] [place] [address] PCP - General Family Medicine 12/31/13 05/09/18 Isidro Heredia MD Rheumatology 02/09/11 documented as of this encounter
--- OUTSIDE RECORDS SUMMARY | 2024-05-10 10:21 | XMS_ITS | Encounter Summary ---
Author Organization [facility] Address [address] [facility] [place] [address] Care Team Providers Care Briar Cutter Name Role Phone Isidro Heredia MD Unavailable [phone] Tomas Hyman MD Primary Care Provider [phone] Encounter Details Date Type Department Care Team (Late Contact Info) Description 03/04/2018 Orders Only [facility] - Rheumatology [address] [place] [address] Isidro Heredia MD [address] [place] [address] Encounter for long-term (current) use of [...] (Late Contact Info) Description 06/03/2024 1:00 PM SAP PP CONSULTANT Appointment [facility] - Rheumatology [address] [place] [address] 06/03/2024 2:00 PM SAP PP CONSULTANT Office Visit [facility] Rheumatology [address] [place] [address] Gloria Smith MD [address] [place], [place] [address] [place] [phone] Scheduled Orders Name Type Priority Associated Diagnoses [...] ERYTHROCYTE SEDIMENTATION RATE Routine 03/07/2018 12:00 PM SAP PP CONSULTANT Encounter for long-term (current) use of medications CBC W AUTO DIFFERENTIAL Routine 03/07/2018 12:00 PM SAP PP CONSULTANT Encounter for long-term (current) use of medications COMPREHENSIVE METABOLIC PANEL Routine 03/07/2018 12:00 PM SAP PP CONSULTANT Encounter for long-term (current) use of medications [...] Resulting Agency Comment Lab Testing performed at: [facility] ??[facility] [phone] Isidro Heredia MD LAB - HEMATOLOGY OR DERABLES Performing Organization Address City/[facility] Co de Phone Number [facility] INSURANCE BILL [address] [place] [address] * ERYTHROCYTE SEDIMENTATION RATE (03/07/2018 12:00 PM SAP PP CONSULTANT) Erythrocyte Sedimentation Rate Westergren 23 0 - 30 mm/hr [facility] INSURANCE BILL Blood BLOOD SPECIMEN / Unknown 03/07/2018 12:00 PM SAP PP CONSULTANT 03/07/2018 Narrative Resulting Agency Comment [facility] ??[facility] [phone] Isidro Heredia MD LAB - HEMATOLOGY OR DERABLES Performing Organization Address City/[facility]/ZIP Co de Phone Number [facility] INSURANCE BILL [address] [place] [address] * (ABNORMAL) COMPREHENSIVE METABOLIC PANEL (03/07/2018 12:00 PM SAP PP CONSULTANT) Glucose 135(H) 65 - 99 mg/dL [facility] [...] BLOOD SPECIMEN / Unknown 03/07/2018 12:00 PM SAP PP CONSULTANT 03/07/2018 Narrative Resulting Agency Comment [facility] [place] [address] [facility] ??[facility] [phone] Isidro Heredia MD LAB - CHEMISTRY ORD ERABLES [facility] INSURANCE BILL [address] [place] [address] * (ABNORMAL) CBC WITH DIFFERENTIAL (03/07/2018 12:00 PM SAP PP CONSULTANT) [facility] WBC 10.8 3.4 - 10.8 x10E3/uL [...] BLOOD SPECIMEN / Unknown 03/07/2018 12:00 PM SAP PP CONSULTANT 03/07/2018 Narrative Resulting Agency Comment [facility] [address] ??[facility] [phone] Isidro Heredia MD LAB - HEMATOLOGY OR DERABLES [facility] INSURANCE BILL [address] [place] [address] documented in this encounter Visit Diagnoses Diagnosis Encounter for long-term (current) use of medications- Primary Encounter for long-term (current) use of other medications documented in this encounter Care Teams Briar Cutter Relationship Specialty Start Date End Date Tomas Hyman MD [address] [place] [address] PCP - General Family Medicine 12/31/13 05/09/18 Isidro Heredia MD Rheumatology 02/09/11 documented as of this encounter
--- OUTSIDE RECORDS SUMMARY | 2024-05-10 10:21 | XMS_ITS | Encounter Summary ---
Author Organization [facility] Address [address] [facility] [place] [address] Care Team Providers Care Hydrogen Power Plant Manager Name Role Phone Isidro Heredia MD Unavailable [phone] Encounter Details Date Type Department Care Team (Late st Contact Info) Description 05/24/2018 Orders Only [facility] - Rheumatology [address] [place] [address] Isidro Heredia MD [address] [place] [address] Encounter for long-term (current) use [...] st Contact Info) Description 06/03/2024 1:00 PM PEST CONTROL APPLICATOR Appointment [facility] - Rheumatology [address] [place] [address] 06/03/2024 2:00 PM PEST CONTROL APPLICATOR Office Visit [facility] - Rheumatology [address] [place] [address] Gloria Smith MD [address] [place] [phone] documented as of this encounter Visit Diagnoses Diagnosis Encounter for long-term (current) use of medications Encounter for long-term (current) use of other medications documented in this encounter Care Teams Hydrogen Power Plant Manager Relationship Specialty Start Date End Date Isidro Heredia MD Rheumatology 02/09/11 documented as of this encounter
--- OUTSIDE RECORDS SUMMARY | 2024-05-10 10:21 | XMS_ITS | Encounter Summary ---
Author Organization [facility] Address [address] [facility] [place] [address] Care Team Providers Care Tread Tuber Machine Operator Name Role Phone Isidro Heredia MD Unavailable [phone] Tomas Hyman MD Primary Care Provider [phone] Reason for Visit * Reason Comments Refill Request Encounter Details Date Type Department Care Team (Late Contact Info) Description 07/25/2017 Refill [facility] - Rheumatology [address] [place] [address] Isidro Heredia MD [address] [place] [address] Refill Request Social History Tobacco Use [...] (Late Contact Info) Description 06/03/2024 1:00 PM MOTOR PATROL OPERATOR Appointment [facility] - Rheumatology [address] [place] [address] 06/03/2024 2:00 PM MOTOR PATROL OPERATOR Office Visit [facility] Rheumatology [address] [place] [address] Gloria Smith MD [address] [place], [place] [address] [address] documented as of this encounter Visit Diagnoses Not on filedocumented in this encounter Care Teams Tread Tuber Machine Operator Relationship Specialty Start Date End Date Tomas Hyman MD [address] [place] [address] PCP - General Family Medicine 12/31/13 05/09/18 Isidro Heredia MD Rheumatology 02/09/11 documented as of this encounter
--- OUTSIDE RECORDS SUMMARY | 2024-05-10 10:21 | XMS_ITS | Encounter Summary ---
Author Organization [facility] Address [address] [facility] [place] [address] Care Team Providers Care Manager Compliance Name Role Phone Isidro Heredia MD Unavailable [phone] Reason for Visit * Treatment (Routine) - Closed Specialty Diagnoses / Procedures Referred By Contac t Referred To Contact Infusion Therapy Nurse Diagnoses Rheumatoid arthritis without rheumatoid factor, multiple sites (HCC) Procedures [place] INFLIXIMAB INJECTION Isidro Heredia MD [address] [place] [address] [address] Referral ID Status Reason Start Date Expiration Date Visits Re quested Visits Authorized [id number] Closed 05/13/2018 04/29/2019 1 12 Encounter Details Date Type Department Care Team (Late st Contact Info) Description 05/16/2018 1:30 PM PULP MILL TEAM LEADER - 05/16/2018 11:59 PM PULP MILL TEAM LEADER Hospital Encounter [facility] Medical [facility] - Rheumatology [address] [place] [address] Isidro Heredia MD [address] [place] [address] Discharge Disposition: Home or Self [...] Comments Blood Pressure 137/69 05/16/2018 2:45 PM PULP MILL TEAM LEADER Pulse 66 05/16/2018 2:45 PM PULP MILL TEAM LEADER Temperature 36.9 ??C (98.4 ??F) 05/16/2018 1:49 PM CS T Respiratory Rate 18 05/16/2018 2:45 PM PULP MILL TEAM LEADER Oxygen Saturation - - Inhaled Oxygen Concentration - - Weight 105.7 kg (233 lb) 05/16/2018 1:49 PM PULP MILL TEAM LEADER Height - - Body Mass Index 33.43 01/11/2016 3:12 PM CDT documented in this encounter Discharge Instructions * Discharge Instructions* Jody Sahu, RN - 05/16/2018 1:53 PM PULP MILL TEAM LEADER OR Rheumatology Post Infusion instructions You have [...] through Sunday 9-5 call the office at [phone] After hours or on the weekend call the exchange at [phone] If you have had lab work done [...] Hospital as your provider. Jody Sahu RN MILL TEAM LEADER documented in this encounter Medications at Time [...] 05/16/2018 2:02 PM CST JOSE Chalino Deng [id number] 05/16/2018 Diagnosis: Rheumatoid arthritis without rheumatoid factor, multiple sites [M06.09]. Pt denies symptoms of infection or antibiotic use, no open wounds, or recent surgery, or plans for surgery in the next couple of weeks. Pt is aware that we use the 0-10 pain scale to assess discomfort. 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 bowling floor desk clerk pt signs consent for treatment [...] at Doctor's visit today Jody Sahu RN MILL TEAM LEADER documented in this encounter Plan of Treatment Upcoming Encounters Date Type Department Care Team (Late st Contact Info) Description 06/03/2024 1:00 PM PULP MILL TEAM LEADER Appointment [facility] - Rheumatology [address] [place] [address] [phone] 06/03/2024 2:00 PM PULP MILL TEAM LEADER Office [facility] - Rheumatology [address] [place] [address] [phone] Gloria Smith MD [address] [place] [phone] documented as of this encounter Visit [...] filter. $ New Bag/Syringe 05/16/2018 2:08 PM PULP MILL TEAM LEADER 300 mg 40 mL/hr documented in this encounter Care Teams Manager Compliance Relationship Specialty Start Date End Date Isidro Heredia MD Rheumatology 02/09/11 documented as of this encounter
--- OUTSIDE RECORDS SUMMARY | 2024-05-10 10:21 | XMS_ITS | Encounter Summary ---
Author Organization [facility] Address [address] [facility] [place] [address] Care Team Providers Care Music Specialist Name Role Phone Isidro Heredia MD Unavailable [phone] Tomas Hyman MD Primary Care Provider [phone] Reason for Visit * Treatment (Routine) - Closed Specialty Diagnoses / Procedures Referred By Lawrence shah Referred To Contact Infusion Therapy Nurse Diagnoses Rheumatoid arthritis without rheumatoid factor, multiple sites (HCC) Procedures [place] INFLIXIMAB INJECTION Isidro Heredia MD [address] [place] [address] [address] Referral ID Status Reason Start Date Expiration Date Visits Re quested Visits Authorized [id number] Closed 05/13/2018 04/29/2019 1 12 Encounter Details Date Type Department Care Team (Late st Contact Info) Description 09/05/2018 10:00 AM CDT - 09/05/2018 11:59 PM CDT Hospital Encounter [facility] Medical [facility] - Rheumatology [address] [place] [address] Isidro Heredia MD [address] [place], [place] [...] Christy RN - 09/05/2018 10:29 AM CDT [place] Rheumatology Post Infusion instructions You [...] Sunday through 01-02 call the office at [phone] After hours or on the weekend call the exchange at [phone] If you have had lab work done [...] [facility] as your provider. Jody Christy RN documented in this encounter Medications at Time of Discharge Medication Sig Dispensed Refills Start Date End Date atorvastatin (LIPITOR) 40 MG tablet Take 1 (one) tablet by mouth at bedtime ekguqzqpfrj-nomr-eod ysorb, PF, 0.5-1-0.5 % SOLN Instill 1 [...] - 09/05/2018 10:27 AM CDT JOSE Deng [id number] 09/05/2018 Diagnosis: Rheumatoid arthritis without rheumatoid factor, [...] st Contact Info) Description 06/03/2024 1:00 PM CELL MANAGER Appointment [facility] - Rheumatology [address] [place] [address] [phone] 06/03/2024 2:00 PM CELL MANAGER Office Visit [facility] - Rheumatology [address] [place] [address] [phone] Gloria Smith MD [address] [place] [phone] documented as of this encounter Visit [...] documented in this encounter Care Teams Music Specialist Relationship Specialty Start Date End Date Tomas Hyman MD [address] [facility] [address] [place] [address] PCP - General Family Medicine 09/05/18 Isidro Heredia MD Rheumatology 02/09/11 documented as of this encounter
--- OUTSIDE RECORDS SUMMARY | 2024-05-10 10:21 | XMS_ITS | Encounter Summary ---
Author Organization [facility] Address [address] [facility] [place] [address] Care Team Providers Care Furniture Builder Name Role Phone Isidro Heredia MD Unavailable [phone] Tomas Hyman MD Primary Care Provider [phone] Reason for Visit * Treatment (Routine) - Closed Specialty Diagnoses / Procedures Referred By Lawrence shah Referred To Contact Infusion Therapy Nurse Diagnoses Rheumatoid arthritis without rheumatoid factor, multiple sites (HCC) Procedures [place] INFLIXIMAB INJECTION Isidro Heredia MD [address] [place] [address] [address] Referral ID Status Reason Start Date Expiration Date Visits Re quested Visits Authorized [id number] Closed 02/28/2018 04/29/2018 1 6 Encounter Details Date Type Department Care Team (Late st Contact Info) Description 03/07/2018 10:54 AM YEAST STACKER - 03/07/2018 11:59 PM YEAST STACKER Hospital Encounter [facility] Medical [facility] - Rheumatology [address] [place] [address] Isidro Heredia MD [address] [place] [address] Discharge Disposition: Home or Self [...] Comments Blood Pressure 133/81 03/07/2018 11:21 AM YEAST STACKER Pulse 85 03/07/2018 11:21 AM YEAST STACKER Temperature 36.8 ??C (98.3 ??F) 03/07/2018 11:[address] Respiratory Rate 18 03/07/2018 11:21 AM YEAST STACKER Oxygen Saturation - - Inhaled Oxygen Concentration - - Weight 103 kg (227 lb) 03/07/2018 11:21 AM YEAST STACKER Height - - Body Mass Index 32.57 01/11/2016 3:12 PM CDT documented in this encounter Discharge Instructions * Discharge Instructions* Jody Sahu RN - 03/07/2018 12:07 PM YEAST STACKER [place] Rheumatology Post Infusion instructions You have [...] through Sunday 9-5 call the office at [phone] After hours or on the weekend call the exchange at [phone] If you have had lab work done [...] as your provider. Jody Sahu RN T STACKER documented in this encounter Medications at Time [...] - 03/07/2018 11:46 AM CST JOSE Deng [id number] 03/07/2018 Diagnosis: Rheumatoid arthritis without rheumatoid factor, [...] without any symptoms hypersensitivity. Jody Sahu RN T STACKER documented in this encounter Plan of Treatment Upcoming Encounters Date Type Department Care Team (Late st Contact Info) Description 06/03/2024 1:00 PM YEAST STACKER Appointment [facility] - Rheumatology [address] [place] [address] [phone] 06/03/2024 2:00 PM YEAST STACKER Office Visit [facility] - Rheumatology [address] [place] [address] [phone] Gloria Smith MD [address] [place] [phone] documented as of this encounter Visit [...] filter. $ New Bag/Syringe 03/07/2018 11:35 AM YEAST STACKER 300 mg 10 mL/hr documented in this encounter Care Teams Furniture Builder Relationship Specialty Start Date End Date Tomas Hyman MD [address] [facility] [address] [place] [address] PCP - General Family Medicine 12/31/13 05/09/18 Isidro Heredia MD Rheumatology 02/09/11 documented as of this encounter
--- OUTSIDE RECORDS SUMMARY | 2024-05-10 10:21 | XMS_ITS | Encounter Summary ---
Author Organization [facility] Address [address] [facility] [place] [address] Care Team Providers Care Camp Director Name Role Phone Isidro Heredia MD Unavailable Encounter Details Date Type Department Care Team (Late st Contact Info) Description 08/16/2018 Orders Only [facility] - Rheumatology [address] [place] [address] Isidro Heredia MD [address] [place] [address] Encounter for long-term (current) use [...] st Contact Info) Description 06/03/2024 1:00 PM LAB ASST Appointment [facility] - Rheumatology [address] [place] [address] 06/03/2024 2:00 PM LAB ASST Office Visit [facility] - Rheumatology [address] [place] [address] Gloria Smith MD [address] [place] [phone] documented as of this encounter Procedures [...] Resulting Agency Comment Lab Testing performed at: [facility] ??[facility] [id number] Isidro Heredia MD LAB - HEMATOLOGY OR DERABLES [facility] INSURANCE BILL [address] [place] [address] documented in this encounter Visit Diagnoses Diagnosis Encounter for long-term (current) use of medications Encounter for long-term (current) use of other medications documented in this encounter Care Teams Camp Director Relationship Specialty Start Date End Date Isidro Heredia MD Rheumatology 02/09/11 documented as of this encounter
--- OUTSIDE RECORDS SUMMARY | 2024-05-10 10:21 | XMS_ITS | Encounter Summary ---
Author Organization [facility] Address [address] [facility] [place] [address] Care Team Providers Care Machine Printer Name Role Phone Isidro Heredia MD Unavailable [phone] Tomas Hyman MD Primary Care Provider [phone] Encounter Details Date Type Department Care Team (Late Contact Info) Description 09/03/2017 Orders Only [facility] - Rheumatology [address] [place] [address] Isidro Heredia MD [address] [place] [address] Social History Tobacco Use Types Packs/Day [...] (Late Contact Info) Description 06/03/2024 1:00 PM PLATING TANK OPERATOR Appointment [facility] - Rheumatology [address] [place] [address] 06/03/2024 2:00 PM PLATING TANK OPERATOR Office Visit [facility] - Rheumatology [address] [place] [address] Gloria Smith MD [address] [place] [phone] documented as of this encounter Visit Diagnoses Not on filedocumented in this encounter Care Teams Machine Printer Relationship Specialty Start Date End Date Tomas Hyman MD [address] [facility] [address] [place] [address] PCP - General Family Medicine 12/31/13 05/09/18 Isidro Heredia MD Rheumatology 02/09/11 documented as of this encounter
--- OUTSIDE RECORDS SUMMARY | 2024-05-10 10:22 | XMS_ITS | Encounter Summary ---
Author Organization [facility] Address [address] [place] [address] Care Team Providers Care Geriatric Nursing Assistant Name Role Phone Isidro Heredia MD Unavailable [phone] Tomas Hyman MD Primary Care Provider Encounter Details Date Type Department Care Team (Late Contact Info) Description 06/12/2017 Orders Only [facility] - Rheumatology [address] [place] [address] Isidro Heredia MD [address] [place] [address] Rheumatoid arthritis involving multiple sites, unspecified [...] (Late Contact Info) Description 06/03/2024 1:00 PM CYLINDER PRESS OPERATOR HELPER Appointment [facility] - Rheumatology [address] [place] [address] 06/03/2024 2:00 PM CYLINDER PRESS OPERATOR HELPER Office Visit [facility] Rheumatology [address] [place] [address] Gloria Smith MD [address] [place], [place] [address], [place] [address] documented as of this encounter Procedures Procedure [...] CDT 08/01/2017 Narrative Resulting Agency Comment [facility] [address] [facility] ??[facility] [phone] Isidro Heerdia MD LAB - HEMATOLOGY OR DERABLES [facility] INSURANCE BILL [address] [place] [address] * (ABNORMAL) COMPREHENSIVE METABOLIC PANEL (08/01/2017 1:00 [...] CDT 08/01/2017 Narrative Resulting Agency Comment [facility] [address] ??[facility] [id number] Isidro Heredia MD LAB - CHEMISTRY ORD ERABLES [facility] INSURANCE BILL [address] [place] [address] * (ABNORMAL) CBC W AUTO DIFFERENTIAL (08/01/2017 [...] CDT 08/01/2017 Narrative Resulting Agency Comment [facility] [address] [facility] ??[facility] [phone] Isidro Heredia MD LAB - HEMATOLOGY OR DERABLES [facility] INSURANCE BILL [address] [place] [address] documented in this encounter Visit Diagnoses Diagnosis Rheumatoid arthritis involving multiple sites, unspecified rheumatoid factor presence (HCC)- Primary documented in this encounter Care Teams Geriatric Nursing Assistant Relationship Specialty Start Date End Date Tomas Hyman MD [address] [facility] [address] [place] [address] PCP - General Family Medicine 12/31/13 05/09/18 Isidro Heredia MD Rheumatology 02/09/11 documented as of this encounter
--- OUTSIDE RECORDS SUMMARY | 2024-05-10 10:22 | XMS_ITS | Encounter Summary ---
Author Organization [facility] Address [address] [facility] [place] [address] Care Team Providers Care Cotton Dispatcher Name Role Phone Isidro Heredia MD Unavailable [phone] Tomas Hyman MD Primary Care Provider [phone] Reason for Visit * Reason Onset Date Comments MEDICATION REFILL 04/05/2017 Encounter Details Date Type Department Care Team (Late Contact Info) Description 04/05/2017 Refill [facility] - Rheumatology [address] [place] [address] Isidro Heredia MD [address] [place] [address] MEDICATION REFILL Social History Tobacco Use [...] (Late Contact Info) Description 06/03/2024 1:00 PM BRIDAL STYLIST SALES CONSULTANT Appointment [facility] - Rheumatology [address] [place] [address] 06/03/2024 2:00 PM BRIDAL STYLIST SALES CONSULTANT Office Visit [facility] - Rheumatology [address] [place] [address] Gloria Smith MD [address] [place] [address] documented as of this encounter Visit Diagnoses Not on filedocumented in this encounter Care Teams Cotton Dispatcher Relationship Specialty Start Date End Date Tomas Hyman MD [address] [place] [address] PCP - General Family Medicine 12/31/13 05/09/18 Isidro Heredia MD Rheumatology 02/09/11 documented as of this encounter
--- OUTSIDE RECORDS SUMMARY | 2024-05-10 10:22 | XMS_ITS | Encounter Summary ---
Author Organization [facility] Address [address] [place] [address] Care Team Providers Care Event Representative Name Role Phone Isidro Heredia MD Unavailable [phone] Tomas Hyman MD Primary Care Provider Reason for Visit * Reason Comments Refill Request Encounter Details Date Type Department Care Team (Late Contact Info) Description 05/13/2017 Refill [facility] - Rheumatology [address] [place] [address] Isidro Heredia MD [address] [place] [address] Refill Request Social History Tobacco Use [...] Contact Info) Description 06/03/2024 1:00 PM FRUIT RECEIVER Appointment [facility] - Rheumatology [address] [place] [address] 06/03/2024 2:00 PM FRUIT RECEIVER Office Visit [facility] Rheumatology [address] [place] [address] Gloria Smith MD [address] [place] [address] [address] documented as of this encounter Visit Diagnoses Not on filedocumented in this encounter Care Teams Event Representative Relationship Specialty Start Date End Date Tomas Hyman MD [address] [place] [address] PCP - General Family Medicine 12/31/13 05/09/18 Isidro Heredia MD Rheumatology 02/09/11 documented as of this encounter
--- OUTSIDE RECORDS SUMMARY | 2024-05-10 10:22 | XMS_ITS | Encounter Summary ---
Author Organization [facility] Address [address] [facility] [place] [address] Care Team Providers Care Legislators Name Role Phone Isidro Heredia MD Unavailable [phone] Tomas Hyman MD Primary Care Provider [phone] Reason for Visit * Treatment (Routine) - Closed Specialty Diagnoses / Procedures Referred By Lawrence shah Referred To Contact Infusion Therapy Nurse Diagnoses Rheumatoid arthritis without rheumatoid factor, multiple sites (HCC) Procedures [place] INJECTION TOCILIZUMAB 1 MG Isidro Heredia MD [address] [place] [address] [address] Referral ID Status Reason Start Date Expiration Date Visits Re quested Visits Authorized [id number] Closed 08/07/2016 04/29/2017 1 12 Encounter Details Date Type Department Care Team (Late st Contact Info) Description 04/05/2017 2:03 PM OPTICIAN APPRENTICE DISPENSING - 04/05/2017 11:59 PM OPTICIAN APPRENTICE DISPENSING Hospital Encounter [facility] Medical [facility] - Rheumatology [address] [place] [address] Isidro Heredia MD [address] [facility] [place] [address] Discharge Disposition: Home or Self [...] Comments Blood Pressure 163/90 04/05/2017 2:25 PM OPTICIAN APPRENTICE DISPENSING Pulse 70 04/05/2017 2:25 PM OPTICIAN APPRENTICE DISPENSING Temperature 37.2 ??C (99 ??F) 04/05/2017 2:25 PM OPTICIAN APPRENTICE DISPENSING Respiratory Rate 18 04/05/2017 2:25 PM OPTICIAN APPRENTICE DISPENSING Oxygen Saturation - - Inhaled Oxygen Concentration - - Weight 113.4 kg (250 lb) 04/05/2017 2:25 PM OPTICIAN APPRENTICE DISPENSING Height - - Body Mass Index 35.87 01/11/2016 3:12 PM CDT documented in this encounter Discharge Instructions * Discharge Instructions* Jody Sahu RN - 04/05/2017 2:34 PM OPTICIAN APPRENTICE DISPENSING [place] Rheumatology Post Infusion instructions You have [...] through Sunday 9-5 call the office at [phone] After hours or on the weekend call the exchange at [phone] If you have had lab work done [...] Center as your provider. Jody Sahu RN CIAN APPRENTICE DISPENSING documented in this encounter Medications at Time [...] - 04/05/2017 2:49 PM CST JOSE Deng [id number] 04/05/2017 Diagnosis: Rheumatoid arthritis without rheumatoid factor, [...] Next treatment? 4 weeks Jody Sahu RN CIAN APPRENTICE DISPENSING documented in this encounter Plan of Treatment Upcoming Encounters Date Type Department Care Team (Late st Contact Info) Description 06/03/2024 1:00 PM OPTICIAN APPRENTICE DISPENSING Appointment [facility] - Rheumatology [address] [place] [address] 06/03/2024 2:00 PM OPTICIAN APPRENTICE DISPENSING Office Visit [facility] - Rheumatology [address] [place] [address] Gloria Smith MD [address] [place] [phone] documented as of this encounter Visit Diagnoses [...] RT $ New Bag/Syringe 04/05/2017 2:45 PM OPTICIAN APPRENTICE DISPENSING 800 mg 100 mL/hr documented in this encounter Care Teams Legislators Relationship Specialty Start Date End Date Tomas Hyman MD [address] [facility] [address] [place] [address] PCP - General Family Medicine 12/31/13 05/09/18 Isidro Heredia MD Rheumatology 02/09/11 documented as of this encounter
--- OUTSIDE RECORDS SUMMARY | 2024-05-10 10:22 | XMS_ITS | Encounter Summary ---
Author Organization [facility] Address [address] [place] [address] Care Team Providers Care Car Cooper Name Role Phone Isidro Heredia MD Unavailable [phone] Tomas Hyman MD Primary Care Provider [phone] Reason for Visit * Treatment (Routine) - Closed Specialty Diagnoses / Procedures Referred By Lawrence shah Referred To Contact [place] [id number] [address] [facility] Pain Care [address] [place] [address] Referral ID Status Reason Start Date Expiration Date Visits Re quested Visits Authorized [id number] Closed 03/01/2017 08/28/2017 1 3 Encounter Details Date Type Department Care Team (Latest Contact Info) Description 03/01/2017 10:03 AM CDT - 03/01/2017 10:04 AM CDT Hospital Encounter [facility] Pain [facility] [address] [place] [address] [place] [address] [address] Discharge Disposition: Home or Self [...] st Contact Info) Description 06/03/2024 1:00 PM CULTURE MEDIA LABORATORY ASSISTANT Appointment [facility] - Rheumatology [address] [place] [address] [phone] 06/03/2024 2:00 PM CULTURE MEDIA LABORATORY ASSISTANT Office Visit [facility] - Rheumatology [address] [place] [address] Gloria Smith MD [address] [place] [phone] documented as of this encounter Visit Diagnoses Not on filedocumented in this encounter Care Teams Car Cooper Relationship Specialty Start Date End Date Tomas Hyman MD [address] [facility] [address] [place] [address] PCP - General Family Medicine 12/31/13 05/09/18 Isidro Heredia MD Rheumatology 02/09/11 documented as of this encounter
--- OUTSIDE RECORDS SUMMARY | 2024-05-10 10:22 | XMS_ITS | Encounter Summary ---
Author Organization [facility] Address [address] [facility] [place] [address] Care Team Providers Care Director Business Travel Name Role Phone Isidro Heredia MD Unavailable [phone] Tomas Hyman MD Primary Care Provider [phone] Reason for Visit * Treatment (Routine) - Closed Specialty Diagnoses / Procedures Referred By Lawrence shah Referred To Contact Infusion Therapy Nurse Diagnoses Rheumatoid arthritis without rheumatoid factor, multiple sites (HCC) Procedures AL INJECTION TOCILIZUMAB 1 MG Isidro Heredia MD [address] [place] [address] [address] Referral ID Status Reason Start Date Expiration Date Visits Re quested Visits Authorized [id number] Closed 08/07/2016 04/29/2017 1 12 Encounter Details Date Type Department Care Team (Late st Contact Info) Description 03/08/2017 1:30 PM VP DIGITAL MARKETING - 03/08/2017 3:55 PM VP DIGITAL MARKETING Hospital Encounter [facility] - Rheumatology [address] [place] [address] Isidro Heredia MD [address] [place] [address] Discharge Disposition: Home or Self [...] Comments Blood Pressure 128/74 03/08/2017 1:59 PM VP DIGITAL MARKETING Pulse 79 03/08/2017 1:59 PM VP DIGITAL MARKETING Temperature 36.7 ??C (98.1 ??F) 03/08/2017 1:59 PM CS T Respiratory Rate 16 03/08/2017 1:59 PM VP DIGITAL MARKETING Oxygen Saturation - - Inhaled Oxygen Concentration - - Weight 109.8 kg (242 lb) 03/08/2017 1:59 PM VP DIGITAL MARKETING Height - - Body Mass Index 34.72 01/11/2016 3:12 PM CDT documented in this encounter Discharge Instructions * Discharge Instructions* Jody Sahu RN - 03/08/2017 2:04 PM VP DIGITAL MARKETING [place] Rheumatology Post Infusion instructions You have [...] Sunday through 01-02 call the office at [phone] After hours or on the weekend call the exchange at [phone] If you have had lab work done [...] Hospital as your provider. Jody Sahu RN DIGITAL MARKETING documented in this encounter Medications at Time [...] - 03/08/2017 2:26 PM CST JOSE Deng [id number] 03/08/2017 Diagnosis: Rheumatoid arthritis without rheumatoid factor, [...] Next treatment? 4 weeks Jody Sahu RN DIGITAL MARKETING documented in this encounter Plan of Treatment Upcoming Encounters Date Type Department Care Team (Late st Contact Info) Description 06/03/2024 1:00 PM VP DIGITAL MARKETING Appointment [facility] - Rheumatology [address] [place] [address] 06/03/2024 2:00 PM VP DIGITAL MARKETING Office Visit [facility] - Rheumatology [address] [place] [address] Gloria Smith MD [address] [place] [phone] documented as of this encounter Visit Diagnoses [...] RT $ New Bag/Syringe 03/08/2017 2:15 PM VP DIGITAL MARKETING 800 mg 100 mL/hr documented in this encounter Care Teams Director Business Travel Relationship Specialty Start Date End Date Tomas Hyman MD [address] [facility] [address] [place] [address] PCP - General Family Medicine 12/31/13 05/09/18 Isidro Heredai MD Rheumatology 02/09/11 documented as of this encounter
--- OUTSIDE RECORDS SUMMARY | 2024-05-10 10:22 | XMS_ITS | Encounter Summary ---
Author Organization [facility] Address [address] [place] [address] Care Team Providers Care Circle Edger Name Role Phone Isidro Heredia MD Unavailable Tomas Hyman MD Primary Care Provider [phone] Encounter Details Date Type Department Care Team (Late st Contact Info) Description 04/03/2017 Orders Only [facility] Medical [facility] - Rheumatology [address] [place] [address] [phone] Isidro Heredia MD [address] [place] [address] Rheumatoid arthritis involving multiple sites, unspecified [...] 3:52 PM CST Sent via my chart ER OPERATOR * Isidro Heredia MD - 04/08/2017 10:07 PM CST [facility] [place] [facility] ER OPERATOR documented in this encounter Plan of Treatment Upcoming Encounters Date Type Department Care Team (Late st Contact Info) Description 06/03/2024 1:00 PM PICKER OPERATOR Appointment [facility] - Rheumatology [address] [place] [address] [phone] 06/03/2024 2:00 PM PICKER OPERATOR Office Visit [facility] - Rheumatology [address] [place] [address] Gloria Smith MD [address] [place] [phone] documented as of this encounter Procedures Procedure Name Priority Date/Time Associated Diagnosis Comments ERYTHROCYTE SEDIMENTATION RATE Routine 04/05/2017 2:30 PM PICKER OPERATOR Rheumatoid arthritis involving multiple sites, unspecified rheumatoid factor presence CBC W AUTO DIFFERENTIAL Routine 04/05/2017 2:30 PM PICKER OPERATOR Rheumatoid arthritis involving multiple sites, unspecified rheumatoid factor presence COMPREHENSIVE METABOLIC PANEL Routine 04/05/2017 2:30 PM PICKER OPERATOR Rheumatoid arthritis involving multiple sites, unspecified rheumatoid factor presence documented in this encounter Results * ERYTHROCYTE SEDIMENTATION RATE (04/05/2017 2:30 PM PICKER OPERATOR) Erythrocyte Sedimentation Rate Westergren 4 0 - 30 mm/hr [facility] INSURANCE BILL Blood BLOOD SPECIMEN / Unknown 04/05/2017 2:30 PM PICKER OPERATOR 04/05/2017 Narrative Resulting Agency Comment [facility] [address] [facility] ??[facility] [phone] Isidro Heredia MD LAB - HEMATOLOGY OR DERABLES [facility] INSURANCE BILL [address] [place] [address] * (ABNORMAL) COMPREHENSIVE METABOLIC PANEL (04/05/2017 2:30 PM PICKER OPERATOR) Glucose 100(H) 65 - 99 mg/dL [facility] [...] BLOOD SPECIMEN / Unknown 04/05/2017 2:30 PM PICKER OPERATOR 04/05/2017 Narrative Resulting Agency Comment [facility] ??[facility] [phone] Isidro Heredia MD LAB - CHEMISTRY ORD ERABLES [facility] INSURANCE BILL [address] [place] [address] * (ABNORMAL) CBC W AUTO DIFFERENTIAL (04/05/2017 2:30 PM PICKER OPERATOR) WBC 6.9 3.4 - 10.8 x10E3/uL [facility] [...] BLOOD SPECIMEN / Unknown 04/05/2017 2:30 PM PICKER OPERATOR 04/05/2017 Narrative Resulting Agency Comment [facility] [address] [place] [address] ??[facility] [phone] Isidro Heredia MD LAB - HEMATOLOGY OR DERABLES [facility] INSURANCE BILL [address] [place] [address] documented in this encounter Visit Diagnoses Diagnosis Rheumatoid arthritis involving multiple sites, unspecified rheumatoid factor presence (HCC)- Primary documented in this encounter Care Teams Circle Edger Relationship Specialty Start Date End Date Tomas Hyman MD [address] [place] [address] PCP - General Family Medicine 12/31/13 05/09/18 Isidor Heredia MD Rheumatology 02/09/11 documented as of this encounter
--- OUTSIDE RECORDS SUMMARY | 2024-05-10 10:22 | XMS_ITS | Encounter Summary ---
Author Organization [facility] Address [address] [facility] [place] [address] Care Team Providers Care Chief Medical Physicist Name Role Phone Isidro Heredia MD Unavailable Tomas Hyman MD Primary Care Provider [phone] Reason for Visit * Reason Comments Follow-up Encounter Details Date Type Department Care Team (Late st Contact Info) Description 03/08/2017 2:15 PM MATERIALS INSPECTOR Office Visit [facility] - Rheumatology [address] [place] [address] [phone] Isidro Heredia MD [address] [place] [address] Chronic right-sided low back pain with [...] Comments Blood Pressure 128/74 03/08/2017 2:37 PM MATERIALS INSPECTOR Pulse 79 03/08/2017 2:37 PM MATERIALS INSPECTOR Temperature - - Respiratory Rate - - Oxygen Saturation - - Inhaled Oxygen Concentration - - Weight 109.8 kg (242 lb) 03/08/2017 2:37 PM MATERIALS INSPECTOR Height - - Body Mass Index 34.72 [...] 1 Tab by mouth once daily ??? Axlkblvienj-Atzfhnula-Ymw C-Mn (GLUCOSAMINE CHONDR 1500 COMPLX PO) Take [...] Follow up in office in 4 weeks RIALS INSPECTOR documented in this encounter Plan of Treatment Upcoming Encounters Date Type Department Care Team (Late st Contact Info) Description 06/03/2024 1:00 PM MATERIALS INSPECTOR Appointment [facility] - Rheumatology [address] [place] [address] 06/03/2024 2:00 PM MATERIALS INSPECTOR Office Visit [facility] - Rheumatology [address] [place] [address] Gloria Smith MD [address] [place] [address] [phone] documented as of this encounter Results * XR ANKLE BILAT 2 VIEWS (03/08/2017 4:07 PM MATERIALS INSPECTOR) Anatomical Region Laterality Modality Ankle / Foot, Lower Extremity Ra diographic Imaging 03/08/2017 4:14 PM MATERIALS INSPECTOR Impressions 03/08/2017 4:15 PM MATERIALS INSPECTOR No fracture. Narrative 03/08/2017 4:15 PM MATERIALS INSPECTOR Bilateral ankles 2 views INDICATION: Ankle pain [...] at 1715 $ Given 03/08/2017 4:47 PM MATERIALS INSPECTOR 1 mL Right Shoulder triamcinolone acetonide (KENALOG-40) injection 80 mg 80 mg, Intra-articular, ONCE, 1 dose, On Gabriela 03/08/17 at 1715, Shake well before using. $ Given 03/08/2017 4:48 PM MATERIALS INSPECTOR 80 mg Right Shoulder documented in this encounter Care Teams Chief Medical Physicist Relationship Specialty Start Date End Date Tomas Hyman MD [address] [place] [address] PCP - General Family Medicine 12/31/13 05/09/18 Isidro Heredia MD Rheumatology 02/09/11 documented as of this encounter
--- OUTSIDE RECORDS SUMMARY | 2024-05-10 10:22 | XMS_ITS | Encounter Summary ---
Author Organization [facility] Address [address] [facility] [place] [address] Care Team Providers Care Scout Professional Sports Name Role Phone Isidro Heredia MD Unavailable [phone] Tomas Hyman MD Primary Care Provider [phone] Encounter Details Date Type Department Care Team (Late st Contact Info) Description 03/08/2017 3:56 PM SIZER HAND - 03/08/2017 11:59 PM [facility] Hospital Encounter [facility] Ur[facility] - Medical Imaging [address] [place] [address] Isidro Heredia MD [address] [place] [address] Discharge Disposition: Home or Self Care [...] st Contact Info) Description 06/03/2024 1:00 PM SIZER HAND Appointment [facility] - Rheumatology [address] [place] [address] [phone] 06/03/2024 2:00 PM SIZER HAND Office Visit [facility] - Rheumatology [address] [place] [address] [phone] Gloria Smith MD [address] [place] [phone] documented as of this encounter Procedures Procedure Name Priority Date/Time Associated Diagnosis Comments XR ANKLE BILAT 2VW Routine 03/08/2017 4: 07 PM SIZER HAND Chronic pain syndrome documented in this encounter Results * XR ANKLE BILAT 2 VIEWS (03/08/2017 4:07 PM SIZER HAND) Anatomical Region Laterality Modality Ankle / Foot, Lower Extremity Ra diographic Imaging 03/08/2017 4:14 PM SIZER HAND Impressions 03/08/2017 4:15 PM SIZER HAND No fracture. Narrative 03/08/2017 4:15 PM SIZER HAND Bilateral ankles 2 views INDICATION: Ankle pain [...] syndrome documented in this encounter Care Teams Scout Professional Sports Relationship Specialty Start Date End Date Tomas Hyman MD [address] [place] [address] PCP - General Family Medicine 12/31/13 05/09/18 Isidro Heredia MD Rheumatology 02/09/11 documented as of this encounter
--- OUTSIDE RECORDS SUMMARY | 2024-05-10 10:22 | XMS_ITS | Encounter Summary ---
Author Organization [facility] Address [address] [place] [address] Care Team Providers Care Videogame Designer Name Role Phone Isidro Heredia MD Unavailable [phone] Tomas Hyman MD Primary Care Provider [phone] Encounter Details Date Type Department Care Team (Latest Contact Info) Description 02/22/2017 10:13 AM CDT - 02/22/2017 11:59 PM CDT Hospital Encounter [facility] Pain Care [address] [place] [address] [place] [address] [place] [address] Discharge Disposition: Home or Self Care Social [...] Sierra RN - 02/22/2017 10:22 AM CDT [facility] Pain Discharge Instructions Selective Epidural [...] headache, or any other problems, please call [phone] or after hours callDr. Mirza at [phone] and tell them your physician's name. The exchange will alert the physician production reproduction manager. If sedation is given: No sedation [...] Contact Info) Description 06/03/2024 1:00 PM MOTOR EQUIPMENT CAPTAIN Appointment [facility] - Rheumatology [address] [place] [address] 06/03/2024 2:00 PM MOTOR EQUIPMENT CAPTAIN Office Visit [facility] - Rheumatology [address] [place] [address] Gloria Smith MD [address] [place] [phone] documented as of this encounter Procedures [...] ? Multiple Vitamin (MULTI-VITAMIN PO) ? ? Hjobmnsamaq-Pktrbteqt-Lxq C-Mn (GLUCOSAMINE CHONDR 1500 COMPLX PO) ? [...] identified, and marked by Dr. Mirza. ??Responsible wagon driver salesperson is not needed due to the patient [...] mg documented in this encounter Care Teams Videogame Designer Relationship Specialty Start Date End Date Tomas Hyman MD [address] [facility] [address] [place] [address] PCP - General Family Medicine 12/31/13 05/09/18 Isidro Heredia MD Rheumatology 02/09/11 documented as of this encounter
--- OUTSIDE RECORDS SUMMARY | 2024-05-10 10:22 | XMS_ITS | Encounter Summary ---
Author Organization [facility] Address [address] [facility] [place] [address] Care Team Providers Care Tire Specialist Name Role Phone Isidro Heredia MD Unavailable [phone] Tomas Hyman MD Primary Care Provider [phone] Encounter Details Date Type Department Care Team (Latest Contact Info) Description 03/01/2017 10:05 AM CDT - 03/01/2017 11:59 PM CDT Hospital Encounter [facility] Pain Care [address] [place] [address] [place] [address] [place] [address] Discharge Disposition: Home or Self Care Social [...] Henao RN - 03/01/2017 10:10 AM CDT [facility] Procedure Center Pain Discharge [...] headache, or any other problems, please call [phone] or after hours callDr. Mirza at [phone] and tell them your physician's name. The exchange will alert the physician consumer recruiter. If sedation is given: No sedation given. [...] PO) ??? Multiple Vitamin (MULTI-VITAMIN PO) ??? Lkhgogxqffn-Nupivbtav-Wjj C-Mn (GLUCOSAMINE CHONDR 1500 COMPLX PO) ??? [...] and marked by Dr. Mirza. Responsible road driver is not needed due to the [...] PO) ??? Multiple Vitamin (MULTI-VITAMIN PO) ??? Sshnvpxsftw-Ysqqkbicd-Vdu C-Mn (GLUCOSAMINE CHONDR 1500 COMPLX PO) ??? [...] and marked by Dr. Mirza. Responsible road driver is not needed due to the [...] Contact Info) Description 06/03/2024 1:00 PM MEDICAL OFFICE ADMINISTRATOR Appointment [facility] - Rheumatology [address] [place] [address] [phone] 06/03/2024 2:00 PM MEDICAL OFFICE ADMINISTRATOR Office Visit [facility] - Rheumatology [address] [place] [address] Gloria Smith MD [address] [place] [phone] documented as of this encounter Procedures Procedure [...] ? Multiple Vitamin (MULTI-VITAMIN PO) ? ? Emarwlqjcka-Ybornyosu-Oaa C-Mn (GLUCOSAMINE CHONDR 1500 COMPLX PO) ? [...] identified, and marked by Dr. Mirza. ??Responsible road driver is not needed due to the [...] mg documented in this encounter Care Teams Tire Specialist Relationship Specialty Start Date End Date Tomas Hyman MD [address] [place] [address] PCP - General Family Medicine 12/31/13 05/09/18 Isidro Heredia MD Rheumatology 02/09/11 documented as of this encounter
--- OUTSIDE RECORDS SUMMARY | 2024-05-10 10:22 | XMS_ITS | Encounter Summary ---
Author Organization [facility] Address [address] [facility] [place] [address] Care Team Providers Care Dip Unit Operator Name Role Phone Isidro Heredia MD Unavailable [phone] Tomas Hyman MD Primary Care Provider [phone] Reason for Visit * Reason Comments Refill Request Encounter Details Date Type Department Care Team (Late Contact Info) Description 04/21/2017 Refill [facility] - Rheumatology [address] [place] [address] Isidro Heredia MD [address] [place] [address] Refill Request Social History Tobacco Use [...] (Late Contact Info) Description 06/03/2024 1:00 PM NETWORK DESIGNER Appointment [facility] - Rheumatology [address] [place] [address] 06/03/2024 2:00 PM NETWORK DESIGNER Office Visit [facility] Rheumatology [address] [place] [address] Gloria Smith MD [address] [place], [place] [address], [place] [address] documented as of this encounter Visit Diagnoses Not on filedocumented in this encounter Care Teams Dip Unit Operator Relationship Specialty Start Date End Date Tomas Hyman MD [address] [place] [address] PCP - General Family Medicine 12/31/13 05/09/18 Isidro Heredia MD Rheumatology 02/09/11 documented as of this encounter
--- OUTSIDE RECORDS SUMMARY | 2024-05-10 10:22 | XMS_ITS | Encounter Summary ---
Author Organization [facility] Address [address] [facility] [place] [address] Care Team Providers Care Lead Clinical Research Coordinator Name Role Phone Isidro Heredia MD Unavailable Tomas Hyman MD Primary Care Provider [phone] Reason for Visit * Treatment (Routine) - Closed Specialty Diagnoses / Procedures Referred By Lawrence shah Referred To Contact [place] [address] [address] [facility] Pain Care [address] [place] [address] Referral ID Status Reason Start Date Expiration Date Visits Re quested Visits Authorized [id number] Closed 12/21/2016 06/19/2017 1 3 Encounter Details Date Type Department Care Team (Latest Contact Info) Description 02/22/2017 10:11 AM CDT - 02/22/2017 10:12 AM CDT Hospital Encounter [facility] Health Pain Care [address] [place] [address] [place] [address] [address] Discharge Disposition: Home or Self [...] Contact Info) Description 06/03/2024 1:00 PM ASSEMBLER BILLIARD TABLE Appointment [facility] - Rheumatology [address] [place] [address] [phone] 06/03/2024 2:00 PM ASSEMBLER BILLIARD TABLE Office Visit [facility] - Rheumatology [address] [place] [address] Gloria Smith MD [address] [place] [phone] documented as of this encounter Visit Diagnoses Not on filedocumented in this encounter Care Teams Lead Clinical Research Coordinator Relationship Specialty Start Date End Date Tomas Hyman MD [address] [facility] [address] [place] [address] PCP - General Family Medicine 12/31/13 05/09/18 Isidro Heredia MD Rheumatology 02/09/11 documented as of this encounter
--- OUTSIDE RECORDS SUMMARY | 2024-05-10 10:22 | XMS_ITS | Encounter Summary ---
Author Organization [facility] Address [address] [place] [address] Care Team Providers Care Water Systems Engineer Name Role Phone Isidro Heredia MD Unavailable [phone] Tomas Hyman MD Primary Care Provider [phone] Reason for Visit * Reason Comments Refill Request Encounter Details Date Type Department Care Team (Late Contact Info) Description 03/19/2017 Refill [facility] - Rheumatology [address] [place] [address] Isidro Heredia MD [address] [place] [address] Refill Request Social History Tobacco Use [...] (Late Contact Info) Description 06/03/2024 1:00 PM ENVIRONMENTAL ENGINEERING ASSISTANT Appointment [facility] - Rheumatology [address] [place] [address] 06/03/2024 2:00 PM ENVIRONMENTAL ENGINEERING ASSISTANT Office Visit [facility] Rheumatology [address] [place] [address] Gloria Smith MD [address] [place], [place] [address], [place] [address] documented as of this encounter Visit Diagnoses Not on filedocumented in this encounter Care Teams Water Systems Engineer Relationship Specialty Start Date End Date Tomas Hyman MD [address] [place] [address] PCP - General Family Medicine 12/31/13 05/09/18 Isidro Heredia MD Rheumatology 02/09/11 documented as of this encounter
--- OUTSIDE RECORDS SUMMARY | 2024-05-10 10:22 | XMS_ITS | Encounter Summary ---
Author Organization [facility] Address [address] [facility] [place] [address] Care Team Providers Care Service Agent Name Role Phone Isidro Heredia MD Unavailable [phone] Tomas Hyman MD Primary Care Provider [phone] Reason for Visit * Treatment (Routine) - Closed Specialty Diagnoses / Procedures Referred By Lawrence shah Referred To Contact Infusion Therapy Nurse Diagnoses Rheumatoid arthritis without rheumatoid factor, multiple sites (HCC) Procedures NM INJECTION TOCILIZUMAB 1 MG Isidro Heredia MD [address] [facility] [place] [address] [address] Referral ID Status Reason Start Date Expiration Date Visits Re quested Visits Authorized [id number] Closed 08/07/2016 04/29/2017 1 12 Encounter Details Date Type Department Care Team (Late st Contact Info) Description 02/02/2017 11:40 AM CDT - 02/02/2017 11:59 PM CDT Hospital Encounter [facility] - Rheumatology [address] [place] [address] Isidro Heredia MD [address] [facility] [place] [place] [address] Discharge Disposition: Home or Self [...] Sahu RN - 02/02/2017 12:16 PM CDT [place] [facility] Post Infusion instructions [...] through Sunday 9-5 call the office at [phone] After hours or on the weekend call the exchange at [phone] If you have had lab work done [...] - 02/02/2017 12:40 PM CDT JOSE Deng [id number] 02/02/2017 Diagnosis: Rheumatoid arthritis without rheumatoid factor, [...] Contact Info) Description 06/03/2024 1:00 PM MAINTENANCE SERVICE TECHNICIAN Appointment [facility] - Rheumatology [address] [place] [address] 06/03/2024 2:00 PM MAINTENANCE SERVICE TECHNICIAN Office Visit [facility] - Rheumatology [address] [place] [address] Gloria Smith MD [address] [place], [place] [address] [phone] documented as of this encounter Visit Diagnoses [...] mL/hr documented in this encounter Care Teams Service Agent Relationship Specialty Start Date End Date Tomas Hyman MD [address] [facility] [address] [place] [address] PCP - General Family Medicine 12/31/13 05/09/18 Isidro Heredia MD Rheumatology 02/09/11 documented as of this encounter
--- OUTSIDE RECORDS SUMMARY | 2024-05-10 10:23 | XMS_ITS | Encounter Summary ---
Author Organization [facility] Address [address] [facility] [place] [address] Care Team Providers Care President Practicing Urologist Name Role Phone Isidro Heredia MD Unavailable Tomas Hyman MD Primary Care Provider [phone] Reason for Visit * Treatment (Routine) - Closed Specialty Diagnoses / Procedures Referred By Lawrence shah Referred To Contact Infusion Therapy Nurse Diagnoses Rheumatoid arthritis without rheumatoid factor, multiple sites (HCC) Procedures [place] INJECTION TOCILIZUMAB 1 MG Isidro Heredia MD 01 [facility] [place] [address] [address] Referral ID Status Reason Start Date Expiration Date Visits Re quested Visits Authorized [id number] Closed 08/07/2016 04/29/2017 1 12 Encounter Details Date Type Department Care Team (Late st Contact Info) Description 01/04/2017 2:00 PM CDT - 01/04/2017 11:59 PM CDT Hospital Encounter [facility] Medical [facility] - Rheumatology [address] [place] [address] Isidro Heredia MD 58 [facility] [place] [address] Discharge Disposition: Home or Self [...] Sahu RN - 01/04/2017 2:26 PM CDT [place] Rheumatology Post Infusion instructions You [...] Sunday through 01-02 call the office at [phone] After hours or on the weekend call the exchange at [phone] If you have had lab work done [...] - 01/04/2017 2:40 PM CDT JOSE Deng [id number] 01/04/2017 Diagnosis: Rheumatoid arthritis without rheumatoid factor, [...] st Contact Info) Description 06/03/2024 1:00 PM TOWBOAT ENGINEER Appointment [facility] - Rheumatology [address] [place] [address] [phone] 06/03/2024 2:00 PM TOWBOAT ENGINEER Office Visit [facility] - Rheumatology [address] [place] [address] Gloria Smith MD [address] [place] [phone] documented as of this encounter Visit [...] mg documented in this encounter Care Teams President Practicing Urologist Relationship Specialty Start Date End Date Tomas Hyman MD [address] [facility] [address] [place] [address] PCP - General Family Medicine 12/31/13 05/09/18 Isidro Heredia MD Rheumatology 02/09/11 documented as of this encounter
--- OUTSIDE RECORDS SUMMARY | 2024-05-10 10:23 | XMS_ITS | Encounter Summary ---
Author Organization [facility] Address [address] [facility] [place] [facility] [place] [address] Care Team Providers Care Winch Stripper Name Role Phone Isidro Heredia MD Unavailable [phone] Tomas Hyman MD Primary Care Provider [phone] Reason for Visit * Reason Comments Follow-up Encounter Details Date Type Department Care Team (Late st Contact Info) Description 01/04/2017 2:30 PM CDT Office Visit [facility] - Rheumatology [address] [place] [address] Isidro Heredia MD [address] [place] [address] Chronic right-sided low back pain with [...] 9:10 AM CDT Corrected E/[place] 71358 ([place]) [place] 85713 (established patient) per chart documentations * Isidro [...] 1 Tab by mouth once daily ??? Myikorgefln-Ykufvnbdx-Rho C-Mn (GLUCOSAMINE CHONDR 1500 COMPLX PO) Take [...] Info) Description 06/03/2024 1:00 PM HOME CARE ADMINISTRATOR Appointment [facility] - Rheumatology [address] [place] [address] 06/03/2024 2:00 PM HOME CARE ADMINISTRATOR Office Visit [facility] - Rheumatology [address] [place] [address] Gloria Smith MD [address] [place] [phone] documented as of this encounter Visit [...] Shoulder documented in this encounter Care Teams Winch Stripper Relationship Specialty Start Date End Date Tomas Hyman MD [address] [facility] [address] [place] [address] PCP - General Family Medicine 12/31/13 05/09/18 Isidro Heredia MD Rheumatology 02/09/11 documented as of this encounter
--- OUTSIDE RECORDS SUMMARY | 2024-05-10 10:23 | XMS_ITS | Encounter Summary ---
Author Organization [facility] Address [address] [facility] [place] [address] Care Team Providers Care Adjunct Instructor Chemistry Name Role Phone Isidro Heredia MD Unavailable [phone] Tomas Hyman MD Primary Care Provider [phone] Encounter Details Date Type Department Care Team (Late st Contact Info) Description 01/22/2017 Orders Only [facility] Medical [facility] - Rheumatology [address] [place] [address] [phone] Isidro Heredia MD [address] [place] [address] Encounter for long-term (current) use of [...] CDT Mild anemia same hb 11.9 meron [id number] documented in this encounter Plan of Treatment Upcoming Encounters Date Type Department Care Team (Late st Contact Info) Description 06/03/2024 1:00 PM DEAF/HARD OF HEARING SPECIALIST Appointment [facility] - Rheumatology [address] [place] [address] [phone] 06/03/2024 2:00 PM DEAF/HARD OF HEARING SPECIALIST Office Visit [facility] - Rheumatology [address] [place] [address] Gloria Smith MD [address] [place] [phone] documented as of this encounter Procedures [...] CDT 02/02/2017 Narrative Resulting Agency Comment [facility] [address] ??Counts include 234 beds at the [facility] [id number] Isidro Heredia MD LAB - CHEMISTRY ORD DONNIE [facility] INSURANCE BILL [address] [place] [address] * ERYTHROCYTE SEDIMENTATION RATE (02/02/2017 12:00 PM CDT) Erythrocyte Sedimentation Rate Westergren 6 0 - 30 mm/hr [facility] INSURANCE BILL Blood BLOOD SPECIMEN / Unknown 02/02/2017 12:00 PM CDT 02/02/2017 Narrative Resulting Agency Comment [facility] [address] ??Counts include 234 beds at the [facility] [id number] Isidro Heredia MD LAB - HEMATOLOGY OR DERABLES [facility] INSURANCE BILL [address] [place] [address] * (ABNORMAL) COMPREHENSIVE METABOLIC PANEL (02/02/2017 12:00 [...] CDT 02/02/2017 Narrative Resulting Agency Comment [facility] [address] ??Counts include 234 beds at the [facility] [id number] Isidro Heredia MD LAB - CHEMISTRY ORD ERABLES [facility] INSURANCE BILL [address] [place] [address] * (ABNORMAL) CBC W AUTO DIFFERENTIAL (02/02/2017 [...] CDT 02/02/2017 Narrative Resulting Agency Comment [facility] [address] [facility] ??Counts include 234 beds at the [facility] [id number] Isidro Heredia MD LAB - HEMATOLOGY OR DERABLES [facility] INSURANCE BILL [address] [place] [address] documented in this encounter Visit Diagnoses Diagnosis Encounter for long-term (current) use of medications- Primary Encounter for long-term (current) use of other medications documented in this encounter Care Teams Adjunct Instructor Chemistry Relationship Specialty Start Date End Date Tomas Hyman MD [address] [facility] [address] [place] [address] PCP - General Family Medicine 12/31/13 05/09/18 Isidro Heredia MD Rheumatology 02/09/11 documented as of this encounter
--- OUTSIDE RECORDS SUMMARY | 2024-05-10 10:23 | XMS_ITS | Encounter Summary ---
Author Organization [facility] Address [address] [facility] [place] [address] Care Team Providers Care Manager Primary Care Name Role Phone Isidro Heredia MD Unavailable [phone] Tomas Hyman MD Primary Care Provider [phone] Encounter Details Date Type Department Care Team (Latest Contact Info) Description 12/28/2016 11:22 AM CDT - 12/28/2016 11:59 PM CDT Hospital Encounter [facility] Pain Care [address] [place] [address] [place] [address] [place] [address] Discharge Disposition: Home or Self Care Social [...] Littlejohn RN - 12/28/2016 11:41 AM CDT [facility] Procedure Center [...] headache, or any other problems, please call [phone] or after hours callDr. Mirza at [phone] and tell them your physician's name. The exchange will alert the physician sharepoint solutions developer. If sedation is given: No sedation given. For Your Next Visit: No additional instructions. Other Instructions: May remove band-aid in 12 Hours. Return in 2 weeks for KIMBERLEY #3. documented in this encounter Medications at Time of Discharge Medication Sig Dispensed Refills Start Date End Date atorvastatin (LIPITOR) 40 MG tablet Take 1 (one) tablet by mouth at bedtime Lccxmysvxbs-Oqrypiiir-U it C-Mn (GLUCOSAMINE CHONDR 1500 COMPLX PO) [...] Coumadin, Plavix or other blood thinners. Responsible services delivery driver is not needed due to [...] Contact Info) Description 06/03/2024 1:00 PM PRESIDENT PRACTICING UROLOGIST Appointment [facility] - Rheumatology [address] [place] [address] [phone] 06/03/2024 2:00 PM PRESIDENT PRACTICING UROLOGIST Office Visit [facility] - Rheumatology [address] [place] [address] [phone] Gloria Smith MD [address] [place] [phone] documented as of this encounter Procedures Procedure [...] Coumadin, Plavix or other blood thinners. ??Responsible services delivery driver is not needed due to [...] Back documented in this encounter Care Teams Manager Primary Care Relationship Specialty Start Date End Date Tomas Hyman MD [address] [facility] [address] [place] [address] PCP - General Family Medicine 12/31/13 05/09/18 Isidro Heredia MD Rheumatology 02/09/11 documented as of this encounter
--- OUTSIDE RECORDS SUMMARY | 2024-05-10 10:23 | XMS_ITS | Encounter Summary ---
Author Organization [facility] Address [address] [facility] [place] [address] Care Team Providers Care County Coroner Name Role Phone Isidro Heredia MD Unavailable Tomas Hyman MD Primary Care Provider [phone] Reason for Visit * Treatment (Routine) - Closed Specialty Diagnoses / Procedures Referred By Lawrence shah Referred To Contact [place] [address] [address] [facility] Pain Care [address] [place] [address] Referral ID Status Reason Start Date Expiration Date Visits Re quested Visits Authorized [id number] Closed 12/21/2016 06/19/2017 1 3 Encounter Details Date Type Department Care Team (Latest Contact Info) Description 12/28/2016 11:15 AM CDT - 12/28/2016 11:21 AM T Hospital Encounter [facility] Health Pain Care [address] [place] [address] [place] [address] [address] Discharge Disposition: Home or Self [...] 1 (one) tablet by mouth at bedtime Rofjiqtefmy-Xzzhawdcy-W it C-Mn (GLUCOSAMINE CHONDR 1500 COMPLX PO) [...] st Contact Info) Description 06/03/2024 1:00 PM ARTIST CONSULTANT Appointment [facility] - Rheumatology [address] [place] [address] [phone] 06/03/2024 2:00 PM ARTIST CONSULTANT Office Visit [facility] - Rheumatology [address] [place] [address] [phone] Gloria Smith MD [address] [place] [phone] documented as of this encounter Visit Diagnoses Not on filedocumented in this encounter Care Teams County Coroner Relationship Specialty Start Date End Date Tomas Hyman MD [address] [facility] [address] [place] [address] PCP - General Family Medicine 12/31/13 05/09/18 Isidro Heredia MD Rheumatology 02/09/11 documented as of this encounter
--- OUTSIDE RECORDS SUMMARY | 2024-05-10 10:24 | XMS_ITS | Encounter Summary ---
Author Organization [facility] Address [address] [facility] [place] [address] Care Team Providers Care Director Financial Services Name Role Phone Isidro Heredia MD Unavailable [phone] Tomas Hyman MD Primary Care Provider [phone] Encounter Details Date Type Department Care Team (Late Contact Info) Description 09/21/2016 Orders Only [facility] - Rheumatology [address] [place] [address] Isidro Heredia MD [address] [place] [address] Social History Tobacco Use Types Packs/Day [...] (Late Contact Info) Description 06/03/2024 1:00 PM AUTOMATIC LATHE TENDER Appointment [facility] - Rheumatology [address] [place] [address] 06/03/2024 2:00 PM AUTOMATIC LATHE TENDER Office Visit [facility] - Rheumatology [address] [place] [address] Gloria Smith MD [address] [place] [phone] documented as of this encounter Visit Diagnoses Not on filedocumented in this encounter Care Teams Director Financial Services Relationship Specialty Start Date End Date Tomas Hyman MD [address] [facility] [address] [place] [address] PCP - General Family Medicine 12/31/13 05/09/18 Isidro Heredia MD Rheumatology 02/09/11 documented as of this encounter
--- OUTSIDE RECORDS SUMMARY | 2024-05-10 10:24 | XMS_ITS | Encounter Summary ---
Author Organization [facility] Address [address] [facility] [place] [address] Care Team Providers Care Head Cook Name Role Phone Isidro Heredia MD Unavailable [phone] Tomas Hyman MD Primary Care Provider [phone] Reason for Visit * Treatment (Routine) - Closed Specialty Diagnoses / Procedures Referred By Lawrence shah Referred To Contact Infusion Therapy Nurse Diagnoses Rheumatoid arthritis without rheumatoid factor, multiple sites (HCC) Procedures [place] INJECTION TOCILIZUMAB 1 MG Isidro Heredia MD 06 [facility] [place] [address] [address] Referral ID Status Reason Start Date Expiration Date Visits Re quested Visits Authorized [id number] Closed 08/07/2016 04/29/2017 1 12 Encounter Details Date Type Department Care Team (Late st Contact Info) Description 08/24/2016 1:00 PM CDT - 08/24/2016 11:59 PM CDT Hospital Encounter [facility] Medical [facility] - Rheumatology [address] [place] [address] Isidro Heredia MD [address] [facility] [address] Discharge Disposition: Home or Self [...] Foreman RN - 08/24/2016 2:09 PM CDT [place] Rheumatology Post Infusion instructions [...] Sunday through 01-02 call the office at [phone] After hours or on the weekend call the exchange at [phone] If you have had lab work done [...] 1 (one) tablet by mouth at bedtime Wxpulhikwnl-Zhnteegvb-Z it C-Mn (GLUCOSAMINE CHONDR 1500 COMPLX PO) [...] - 08/24/2016 2:05 PM CDT JOSE Deng [id number] 08/24/2016 Diagnosis: Rheumatoid arthritis without rheumatoid factor, [...] Contact Info) Description 06/03/2024 1:00 PM MANAGER AUTOMOTIVE Appointment [facility] - Rheumatology [address] [place] [address] 06/03/2024 2:00 PM MANAGER AUTOMOTIVE Office Visit [facility] - Rheumatology [address] [place] [address] Gloria Smith MD [address] [place] [phone] documented as of this encounter Visit [...] mg documented in this encounter Care Teams Head Cook Relationship Specialty Start Date End Date Tomas Hyman MD [address] [place] [address] PCP - General Family Medicine 12/31/13 05/09/18 Isidro Heredia MD Rheumatology 02/09/11 documented as of this encounter
--- OUTSIDE RECORDS SUMMARY | 2024-05-10 10:24 | XMS_ITS | Encounter Summary ---
Author Organization [facility] Address [address] [facility] [place] [address] Care Team Providers Care Fire Production Operator Name Role Phone Isidro Heredia MD Unavailable [phone] Tomas Hyman MD Primary Care Provider [phone] Encounter Details Date Type Department Care Team (Late st Contact Info) Description 09/21/2016 Orders Only [facility] Medical [facility] - Rheumatology [address] [place] [address] [phone] Isidro Heredia MD [address] [place] [address] Rheumatoid arthritis involving multiple sites, unspecified [...] Contact Info) Description 06/03/2024 1:00 PM MARKETING REPRESENTATIVE Appointment [facility] - Rheumatology [address] [place] [address] [phone] 06/03/2024 2:00 PM MARKETING REPRESENTATIVE Office Visit [facility] - Rheumatology [address] [place] [address] Gloria Smith MD [address] [place] [phone] documented as of this encounter Procedures Procedure [...] PM CDT 09/21/2016 Narrative Resulting Agency Comment [facility] [address] [address] ??[place] [phone] Isidro Heredia MD LAB - HEMATOLOGY OR DERABLES [facility] INSURANCE BILL [address] [place] [address] * (ABNORMAL) CBC W AUTO DIFFERENTIAL (09/21/2016 [...] PM CDT 09/21/2016 Narrative Resulting Agency Comment [facility] Health [facility] [place] [address] [address] ??Ziy[place] [phone] Isidro Heredia MD LAB - HEMATOLOGY OR DERABLES [facility] INSURANCE BILL [address] [place] [address] * COMPREHENSIVE METABOLIC PANEL (09/21/2016 3:59 PM [...] PM CDT 09/21/2016 Narrative Resulting Agency Comment [facility] [address] [address] ??Ziyad [place] [phone] Isidro Heredia MD LAB - CHEMISTRY ORD ERABLES [facility] INSURANCE BILL [address] [place] [address] documented in this encounter Visit Diagnoses Diagnosis Rheumatoid arthritis involving multiple sites, unspecified rheumatoid factor presence (HCC)- Primary documented in this encounter Care Teams Fire Production Operator Relationship Specialty Start Date End Date Tomas Hyman MD [address] [place] [address] PCP - General Family Medicine 12/31/13 05/09/18 Isidro Heredia MD Rheumatology 02/09/11 documented as of this encounter
--- OUTSIDE RECORDS SUMMARY | 2024-05-10 10:24 | XMS_ITS | Encounter Summary ---
Author Organization [facility] Address [address] [facility] [place] [address] Care Team Providers Care Insulation Manager Name Role Phone Isidro Heredia MD Unavailable [phone] Tomas Hyman MD Primary Care Provider [phone] Reason for Visit * Reason Comments Refill Request Encounter Details Date Type Department Care Team (Late Contact Info) Description 07/14/2016 Refill [facility] - Rheumatology [address] [place] [address] Isidro Heredia MD [address] [place] [address] Refill Request Social History Tobacco Use [...] (Late Contact Info) Description 06/03/2024 1:00 PM COMPONENTS ENGINEER Appointment [facility] - Rheumatology [address] [place] [address] 06/03/2024 2:00 PM COMPONENTS ENGINEER Office Visit [facility] Rheumatology [address] [place] [address] Gloria Smith MD [address] [place], [place] [address] [address] documented as of this encounter Visit Diagnoses Not on filedocumented in this encounter Care Teams Insulation Manager Relationship Specialty Start Date End Date Tomas Hyman MD [address] [place] [address] PCP - General Family Medicine 12/31/13 05/09/18 Isidro Heredia MD Rheumatology 02/09/11 documented as of this encounter
--- OUTSIDE RECORDS SUMMARY | 2024-05-10 10:24 | XMS_ITS | Encounter Summary ---
Author Organization [facility] Address [address] [facility] [place] [address] Care Team Providers Care Card Punching Machine Operator Name Role Phone Isidro Heredia MD Unavailable [phone] Tomas Hyman MD Primary Care Provider [phone] Reason for Visit * Treatment (Routine) - Closed Specialty Diagnoses / Procedures Referred By Lawrence shah Referred To Contact Infusion Therapy Nurse Diagnoses Rheumatoid arthritis without rheumatoid factor, multiple sites (HCC) Procedures [place] INJECTION TOCILIZUMAB 1 MG Isidro Heredia MD 68 [place] [address] [address] Referral ID Status Reason Start Date Expiration Date Visits Re quested Visits Authorized [id number] Closed 08/07/2016 04/29/2017 1 12 Encounter Details Date Type Department Care Team (Late st Contact Info) Description 09/21/2016 1:30 PM CDT - 09/21/2016 3:45 PM CDT Hospital Encounter [facility] Medical [facility] - Rheumatology [address] [place] [address] Isidro Heredia MD [address] [facility] [address] Discharge Disposition: Home or Self [...] - 09/21/2016 3:04 PM CDT Discharge Instructions [facility] [...] through Sunday 9-5 call the office at [phone]. After hours or on the weekend call [...] 1 (one) tablet by mouth at bedtime Kebpzirmpgr-Nzzdlexuk-P it C-Mn (GLUCOSAMINE CHONDR 1500 COMPLX PO) [...] st Contact Info) Description 06/03/2024 1:00 PM SEED DISTRICT SALES MANAGER Appointment [facility] - Rheumatology [address] [place] [address] 06/03/2024 2:00 PM SEED DISTRICT SALES MANAGER Office Visit [facility] - Rheumatology [address] [place] [address] Gloria Smith MD [address] [place] [phone] documented as of this encounter Visit [...] mg documented in this encounter Care Teams Card Punching Machine Operator Relationship Specialty Start Date End Date Tomas Hyman MD [address] [place] [address] PCP - General Family Medicine 12/31/13 05/09/18 Isidro Heredia MD Rheumatology 02/09/11 documented as of this encounter
--- OUTSIDE RECORDS SUMMARY | 2024-05-10 10:24 | XMS_ITS | Encounter Summary ---
Author Organization [facility] Address [address] [facility] [address] Care Team Providers Care Fire Information Officer Name Role Phone Isidro Heredia MD Unavailable [phone] Tomas Hyman MD Primary Care Provider [phone] Encounter Details Date Type Department Care Team (Late st Contact Info) Description 09/21/2016 3:46 PM CDT - 09/21/2016 11:59 PM T Hospital Encounter [facility] Urgent Care - Medical Imaging [address] [place] [address] Isidro Heredia MD [address] [place] [address] Discharge Disposition: Home or Self Care [...] 1 (one) tablet by mouth at bedtime Ejcnsmlzlix-Vqwadtoyz-L it C-Mn (GLUCOSAMINE CHONDR 1500 COMPLX PO) [...] st Contact Info) Description 06/03/2024 1:00 PM DOPE AND FABRIC WORKER Appointment [facility] - Rheumatology [address] [place] [address] 06/03/2024 2:00 PM DOPE AND FABRIC WORKER Office Visit [facility] - Rheumatology [address] [place] [address] Gloria Smith MD [facility] [place] [phone] documented as of this encounter Procedures Procedure [...] breath documented in this encounter Care Teams Fire Information Officer Relationship Specialty Start Date End Date Tomas Hyman MD [address] [place] [address] PCP - General Family Medicine 12/31/13 05/09/18 Isidro Heredia MD Rheumatology 02/09/11 documented as of this encounter
--- OUTSIDE RECORDS SUMMARY | 2024-05-10 10:24 | XMS_ITS | Encounter Summary ---
Author Organization [facility] Address [address] [facility] [place] [address] Care Team Providers Care Sexual Assault Social Worker Name Role Phone Isidro Heredia MD Unavailable [phone] Tomas Hyman MD Primary Care Provider [phone] Reason for Visit * Reason Comments Refill Request Encounter Details Date Type Department Care Team (Late Contact Info) Description 11/15/2016 Refill [facility] - Rheumatology [address] [place] [address] Isidro Heredia MD [address] [place] [address] Refill Request Social History Tobacco Use [...] (Late Contact Info) Description 06/03/2024 1:00 PM WRITING CENTER DIRECTOR Appointment [facility] - Rheumatology [address] [place] [address] 06/03/2024 2:00 PM WRITING CENTER DIRECTOR Office Visit [facility] Rheumatology [address] [place] [address] Gloria Smith MD [address] [place] [address], [place] [address] documented as of this encounter Visit Diagnoses Not on filedocumented in this encounter Care Teams Sexual Assault Social Worker Relationship Specialty Start Date End Date Tomas Hyman MD [address] [place] [address] PCP - General Family Medicine 12/31/13 05/09/18 Isidro Heredia MD Rheumatology 02/09/11 documented as of this encounter
--- OUTSIDE RECORDS SUMMARY | 2024-05-10 10:24 | XMS_ITS | Encounter Summary ---
Author Organization [facility] Address [address] [facility] [place] [address] Care Team Providers Care Plywood Stock Grader Name Role Phone Isidro Heredia MD Unavailable [phone] Tomas Hyman MD Primary Care Provider [phone] Reason for Visit * Reason Onset Date Comments Infusion 10/23/2016 Encounter Details Date Type Department Care Team (Late st Contact Info) Description 10/23/2016 Telephone [facility] Medical [facility] - Rheumatology [address] [place] [address] Isidro Heredia MD [address] [place] [address] Infusion Social History Tobacco Use Types [...] Contact Info) Description 06/03/2024 1:00 PM FLATWORK TIER Appointment [facility] - Rheumatology [address] [place] [address] 06/03/2024 2:00 PM FLATWORK TIER Office Visit [facility] - Rheumatology [address] [place] [address] Gloria Smith MD [address] [place] [address] documented as of this encounter Visit Diagnoses Not on filedocumented in this encounter Care Teams Plywood Stock Grader Relationship Specialty Start Date End Date Tomas Hyman MD [address] [facility] [address] [place] [address] PCP - General Family Medicine 12/31/13 05/09/18 Isidro Heredia MD Rheumatology 02/09/11 documented as of this encounter
--- OUTSIDE RECORDS SUMMARY | 2024-05-10 10:24 | XMS_ITS | Encounter Summary ---
Author Organization [facility] Address [address] [facility] [place] [address] Care Team Providers Care Chief Petroleum Engineer Name Role Phone Isidro Heredia MD Unavailable [phone] Tomas Hyman MD Primary Care Provider [phone] Reason for Visit * Reason Onset Date Comments MEDICATION REFILL 11/29/2016 Encounter Details Date Type Department Care Team (Late st Contact Info) Description 11/29/2016 Refill [facility] Medical [facility] - Rheumatology [address] [place] [address] Isidro Heredia MD [address] [place] [address] MEDICATION REFILL Social History Tobacco Use [...] his prescription is ready at front office secretary for picker tender helper. I have left several messages but cannot [...] for Pain Dx: 714.0 RA patient [facility] escribe for pain med . He will have to picker tender helper a paper form please advise documented in this encounter Plan of Treatment Upcoming Encounters Date Type Department Care Team (Late st Contact Info) Description 06/03/2024 1:00 PM WAREHOUSE INVENTORY CLERK Appointment [facility] - Rheumatology [address] [place] [phone] 06/03/2024 2:00 PM WAREHOUSE INVENTORY CLERK Office Visit [facility] - Rheumatology [address] [place] [address] [phone] Gloria Smith MD [address] [place] [phone] documented as of this encounter Visit Diagnoses Not on filedocumented in this encounter Care Teams Chief Petroleum Engineer Relationship Specialty Start Date End Date Tomas Hyman MD [address] [facility] [address] [place] [address] PCP - General Family Medicine 12/31/13 05/09/18 Isidro Heredia MD Rheumatology 02/09/11 documented as of this encounter
--- OUTSIDE RECORDS SUMMARY | 2024-05-10 10:24 | XMS_ITS | Encounter Summary ---
Author Organization [facility] Address [address] [facility] [place] [address] Care Team Providers Care Sweet Pickle Maker Name Role Phone Isidro Heredia MD Unavailable [phone] Tomas Hyman MD Primary Care Provider [phone] Reason for Visit * Reason Comments Refill Request Encounter Details Date Type Department Care Team (Late Contact Info) Description 12/16/2016 Refill [facility] - Rheumatology [address] [place] [address] Isidro Heredia MD [address] [place] [address] Refill Request Social History Tobacco Use [...] (Late Contact Info) Description 06/03/2024 1:00 PM CLOUD ARCHITECT Appointment [facility] - Rheumatology [address] [place] [address] 06/03/2024 2:00 PM CLOUD ARCHITECT Office Visit [facility] Rheumatology [address] [place] [address] Gloria Smith MD [address] [place], [place] [address] [address] documented as of this encounter Visit Diagnoses Not on filedocumented in this encounter Care Teams Sweet Pickle Maker Relationship Specialty Start Date End Date Tomas Hyman MD [address] [place] [address] PCP - General Family Medicine 12/31/13 05/09/18 Isidro Heredia MD Rheumatology 02/09/11 documented as of this encounter
--- OUTSIDE RECORDS SUMMARY | 2024-05-10 10:24 | XMS_ITS | Encounter Summary ---
Author Organization [facility] Address [address] [facility] [place] [address] Care Team Providers Care Nc Machinist Name Role Phone Isidro Heredia MD Unavailable [phone] Tomas Hyman MD Primary Care Provider [phone] Encounter Details Date Type Department Care Team (Late Contact Info) Description 06/29/2016 Orders Only [facility] - Rheumatology [address] [place] [address] Isidro Heredia MD [address] [place] [address] Social History Tobacco Use Types Packs/Day [...] (Late Contact Info) Description 06/03/2024 1:00 PM PLASTIC CUTTER Appointment [facility] - Rheumatology [address] [place] [address] 06/03/2024 2:00 PM PLASTIC CUTTER Office Visit [facility] - Rheumatology [address] [place] [address] Gloria Smith MD [address] [place] [phone] documented as of this encounter Visit Diagnoses Not on filedocumented in this encounter Care Teams Nc Machinist Relationship Specialty Start Date End Date Tomas Hyman MD [address] [facility] [address] [place] [address] PCP - General Family Medicine 12/31/13 05/09/18 Isidro Heredia MD Rheumatology 02/09/11 documented as of this encounter
--- OUTSIDE RECORDS SUMMARY | 2024-05-10 10:24 | XMS_ITS | Encounter Summary ---
Author Organization [facility] Address [address] [facility] [place] [address] Care Team Providers Care Test Engine Mechanic Name Role Phone Isidro Heredia MD Unavailable [phone] Tomas Hyman MD Primary Care Provider [phone] Reason for Visit * Reason Comments Narcotic Refill percocet MEDICATION REFILL skelaxin * Evaluate & Treat (Routine) - Closed Specialty Diagnoses / Procedures Referred By Contac t Referred To Contact Diagnoses Rheumatoid arthritis, unspecified (HCC) Procedures [place] OFFICE VISIT DURING HOURS Tomas Hyman MD [address] [place] [address] Isidro Heredia MD [address] [place] [address] Referral ID Status Reason Start Date Expiration Date Visits Re quested Visits Authorized [id number] Closed 06/15/2016 06/15/2017 6 6 Encounter Details Date Type Department Care Team (Late st Contact Info) Description 06/29/2016 2:00 PM GALVANOMETER ASSEMBLER Office Visit [facility] - Rheumatology [address] [place] [address] Isidro Heredia MD [address] [place] [address] Abnormal LFTs (Primary Dx); Chronic right-sided [...] Comments Blood Pressure 125/84 06/29/2016 2:20 PM GALVANOMETER ASSEMBLER Pulse 80 06/29/2016 2:20 PM GALVANOMETER ASSEMBLER Temperature - - Respiratory Rate - [...] 1 Tab by mouth once daily ??? Yzxvqzuzsbe-Jqjfgsjqf-Kus C-Mn (GLUCOSAMINE CHONDR 1500 COMPLX PO) Take [...] Follow up in office in 4 weeks ANOMETER ASSEMBLER documented in this encounter Plan of Treatment Upcoming Encounters Date Type Department Care Team (Late st Contact Info) Description 06/03/2024 1:00 PM GALVANOMETER ASSEMBLER Appointment [facility] - Rheumatology [address] [place] [address] 06/03/2024 2:00 PM GALVANOMETER ASSEMBLER Office Visit [facility] - Rheumatology [address] [place] [address] Gloria Smith MD [address] [place] [phone] documented as of this encounter Visit Diagnoses Diagnosis Abnormal LFTs- Primary Other abnormal blood chemistry 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
--- OUTSIDE RECORDS SUMMARY | 2024-05-10 10:24 | XMS_ITS | Encounter Summary ---
Author Organization [facility] Address [address] [facility] [place] [address] Care Team Providers Care Plugger Worker Name Role Phone Isidro Heredia MD Unavailable [phone] Tomas Hyman MD Primary Care Provider [phone] Reason for Visit * Reason Comments Follow-up Medication Check tocilizumba Medication Problem NExium no longer cov ered ( omeprazole perfered ) Refill Request naproxen Narcotic Refill Percocet Encounter Details Date Type Department Care Team (Late st Contact Info) Description 09/21/2016 2:00 PM CDT Office Visit [facility] - Rheumatology [address] [place] [address] Isidro Heredia MD [address] [place] [address] Chronic right-sided low back pain with [...] 1 Tab by mouth once daily ??? Hgliayrbmbc-Ghmspkjde-Lqh C-Mn (GLUCOSAMINE CHONDR 1500 COMPLX PO) Take [...] st Contact Info) Description 06/03/2024 1:00 PM LOAD DISPATCHER LOCAL Appointment [facility] - Rheumatology [address] [place] [address] 06/03/2024 2:00 PM LOAD DISPATCHER LOCAL Office Visit [facility] - Rheumatology [address] [place] [address] Gloria Smith MD [address] [place] [phone] documented as of this encounter Results * [...] breath documented in this encounter Care Teams Plugger Worker Relationship Specialty Start Date End Date Tomas Hyman MD [address] [facility] [address] [place] [address] PCP - General Family Medicine 12/31/13 05/09/18 Isidro Heredia MD Rheumatology 02/09/11 documented as of this encounter
--- OUTSIDE RECORDS SUMMARY | 2024-05-10 10:24 | XMS_ITS | Encounter Summary ---
Author Organization [facility] Address [address] [facility] [place] [address] Care Team Providers Care Psych Social Worker Name Role Phone Isidro Heredia MD Unavailable [phone] Tomas Hyman MD Primary Care Provider Reason for Visit * Treatment (Routine) - Closed Specialty Diagnoses / Procedures Referred By Lawrence shah Referred To Contact Infusion Therapy Nurse Diagnoses Rheumatoid arthritis without rheumatoid factor, multiple sites (HCC) Procedures [place] INJECTION TOCILIZUMAB 1 MG Isidro Heredia MD [address] [facility] [place] [address] [address] Referral ID Status Reason Start Date Expiration Date Visits Re quested Visits Authorized [id number] Closed 06/26/2016 07/28/2016 1 6 Encounter Details Date Type Department Care Team (Late st Contact Info) Description 07/27/2016 1:00 PM CDT - 07/27/2016 11:59 PM CDT Hospital Encounter [facility] Medical [facility] - Rheumatology [address] [place] [address] Isidro Heredia MD [address] [place] [address] Discharge Disposition: Home or Self [...] Sunday through 01-02 call the office at [phone] After hours or on the weekend call the exchange at [phone] If you have had lab work done [...] 1 (one) tablet by mouth at bedtime Rhpidmchnyd-Mqjnxrxim-I it C-Mn (GLUCOSAMINE CHONDR 1500 COMPLX PO) [...] - 07/27/2016 1:36 PM CDT JOSE Deng [id number] 07/27/2016 Diagnosis: Rheumatoid arthritis without rheumatoid factor, [...] st Contact Info) Description 06/03/2024 1:00 PM DUKEY RIDER Appointment [facility] - Rheumatology [address] [place] [address] 06/03/2024 2:00 PM DUKEY RIDER Office Visit [facility] - Rheumatology [address] [place] [address] Gloria Smith MD [address] [place] [phone] documented as of this encounter Visit [...] mg documented in this encounter Care Teams Psych Social Worker Relationship Specialty Start Date End Date Tomas Hyman MD [address] [place] [address] PCP - General Family Medicine 12/31/13 05/09/18 Isidro Heredia MD Rheumatology 02/09/11 documented as of this encounter
--- OUTSIDE RECORDS SUMMARY | 2024-05-10 10:24 | XMS_ITS | Encounter Summary ---
Author Organization [facility] Address [address] [facility] [place] [address] Care Team Providers Care Stevedoring Supervisor Name Role Phone Isidro Heredia MD Unavailable [phone] Tomas Hyman MD Primary Care Provider [phone] Reason for Visit * Reason Comments Refill Request Encounter Details Date Type Department Care Team (Late Contact Info) Description 06/08/2016 Refill [facility] - Rheumatology [address] [place] [address] Isidro Heredia MD [address] [place] [address] Refill Request Social History Tobacco Use [...] (Late Contact Info) Description 06/03/2024 1:00 PM HISTORY TUTOR Appointment [facility] - Rheumatology [address] [place] [address] 06/03/2024 2:00 PM HISTORY TUTOR Office Visit [facility] Rheumatology [address] [place] [address] Gloria Smith MD [address] [place], [place] [address] [address] documented as of this encounter Visit Diagnoses Not on filedocumented in this encounter Care Teams Stevedoring Supervisor Relationship Specialty Start Date End Date Tomas Hyman MD [address] [place] [address] PCP - General Family Medicine 12/31/13 05/09/18 Isidro Heredia MD Rheumatology 02/09/11 documented as of this encounter
--- OUTSIDE RECORDS SUMMARY | 2024-05-10 10:24 | XMS_ITS | Encounter Summary ---
Author Organization [facility] Address [address] [facility] [place] [address] Care Team Providers Care Eyeletter Name Role Phone Isidro Heredia MD Unavailable [phone] Tomas Hyman MD Primary Care Provider [phone] Reason for Visit * Reason Comments Refill Request Encounter Details Date Type Department Care Team (Late Contact Info) Description 09/19/2016 Refill [facility] - Rheumatology [address] [place] [address] Isidro Heredia MD [address] [place] [address] Refill Request Social History Tobacco Use [...] Contact Info) Description 06/03/2024 1:00 PM ASSISTANT LOAN PROCESSOR Appointment [facility] - Rheumatology [address] [place] [address] 06/03/2024 2:00 PM ASSISTANT LOAN PROCESSOR Office Visit [facility] Rheumatology [address] [place] [address] Gloria Smith MD [address] [place] [address] [address] documented as of this encounter Visit Diagnoses Not on filedocumented in this encounter Care Teams Eyeletter Relationship Specialty Start Date End Date Tomas Hyman MD [address] [place] [address] PCP - General Family Medicine 12/31/13 05/09/18 Isidro Heredia MD Rheumatology 02/09/11 documented as of this encounter
--- OUTSIDE RECORDS SUMMARY | 2024-05-10 10:24 | XMS_ITS | Encounter Summary ---
Author Organization [facility] Address [address] [place] [address] Care Team Providers Care Vb Net Developer Name Role Phone Isidro Heredia MD Unavailable [phone] Tomas Hyman MD Primary Care Provider [phone] Reason for Visit * Reason Onset Date Comments MEDICATION REFILL 11/24/2016 Encounter Details Date Type Department Care Team (Late Contact Info) Description 11/24/2016 Refill [facility] - Rheumatology [address] [place] [address] Isidro Heredia MD [address] [place] [address] MEDICATION REFILL Social History Tobacco Use [...] (Late Contact Info) Description 06/03/2024 1:00 PM HAT MEASURER Appointment [facility] - Rheumatology [address] [place] [address] 06/03/2024 2:00 PM HAT MEASURER Office Visit [facility] - Rheumatology [address] [place] [address] Gloria Smith MD [address] [place] [address] documented as of this encounter Visit Diagnoses Not on filedocumented in this encounter Care Teams Vb Net Developer Relationship Specialty Start Date End Date Tomas Hyman MD [address] [place] [address] PCP - General Family Medicine 12/31/13 05/09/18 Isidro Heredia MD Rheumatology 02/09/11 documented as of this encounter
--- OUTSIDE RECORDS SUMMARY | 2024-05-10 10:24 | XMS_ITS | Encounter Summary ---
Author Organization [facility] Address [address] [facility] [place] [address] Care Team Providers Care Bacteriologist Fishery Name Role Phone Isidro Heredia MD Unavailable [phone] Tomas Hyman MD Primary Care Provider [phone] Reason for Visit * Reason Comments Follow-up Encounter Details Date Type Department Care Team (Late st Contact Info) Description 11/23/2016 1:30 PM CDT Office Visit [facility] - Rheumatology [address] [place] [address] Isidro Heredia MD [address] [place] [address] Rheumatoid arthritis of multiple sites with [...] 1 Tab by mouth once daily ??? Zotwkwkaumc-Jhhweqcgc-Qyf C-Mn (GLUCOSAMINE CHONDR 1500 COMPLX PO) Take [...] Info) Description 06/03/2024 1:00 PM MANAGER OF INTERNAL AUDIT Appointment [facility] - Rheumatology [address] [place] [address] [phone] 06/03/2024 2:00 PM MANAGER OF INTERNAL AUDIT Office Visit [facility] - Rheumatology [address] [place] [address] [phone] Gloria Smith MD [address] [place] [phone] documented as of this encounter Visit Diagnoses Diagnosis Rheumatoid arthritis of multiple sites with negative rheumatoid factor (HCC)- Primary Chronic pain syndrome Chronic right-sided low back pain with right-sided sciatica documented in this encounter Care Teams Bacteriologist Fishery Relationship Specialty Start Date End Date Tomas Hyman MD [address] [facility] [address] [place], [place] [phone] PCP - General Family Medicine 12/31/13 05/09/18 Isidro Heredia MD Rheumatology 02/09/11 documented as of this encounter
--- OUTSIDE RECORDS SUMMARY | 2024-05-10 10:24 | XMS_ITS | Encounter Summary ---
Author Organization [facility] Address [address] [facility] [place] [address] Care Team Providers Care Agriculture Teacher Name Role Phone Isidro Heredia MD Unavailable Tomas Hyman MD Primary Care Provider Reason for Visit * Reason Comments Narcotic Refill percocet * Evaluate & Treat (Routine) - Closed Specialty Diagnoses / Procedures Referred By Contsarahi t Referred To Contact Diagnoses Rheumatoid arthritis, unspecified (HCC) Procedures [place] OFFICE VISIT DURING HOURS Tomas H[place] MD [address] [place] [address] Isidro Heredia MD [address] [place] [address] Referral ID Status Reason Start Date Expiration Date Visits Re quested Visits Authorized [id number] Closed 06/15/2016 06/15/2017 6 6 Encounter Details Date Type Department Care Team (Late st Contact Info) Description 08/24/2016 2:00 PM CDT Office Visit [facility] - Rheumatology [address] [place] [address] Isidro Heredia MD [address] [place] [address] Abnormal LFTs (Primary Dx); Chronic right-sided [...] 1 Tab by mouth once daily ??? 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
--- OUTSIDE RECORDS SUMMARY | 2024-05-10 10:24 | XMS_ITS | Encounter Summary ---
Author Organization [facility] Address [address] [facility] [place] [address] Care Team Providers Care Tray Drier Name Role Phone Isidro Heredia MD Unavailable [phone] Tomas Hyman MD Primary Care Provider [phone] Encounter Details Date Type Department Care Team (Late Contact Info) Description 11/22/2016 Orders Only [facility] - Rheumatology [address] [place] [address] Isidro Heredia MD [address] [place] [address] Rheumatoid arthritis involving multiple sites, unspecified [...] (Late Contact Info) Description 06/03/2024 1:00 PM ELECTROTYPE FINISHER Appointment [facility] - Rheumatology [address] [place] [address] 06/03/2024 2:00 PM ELECTROTYPE FINISHER Office Visit [facility] - Rheumatology [address] [place] [address] Gloria Smith MD [address] [place] [address] documented as of this encounter Procedures Procedure [...] PM CDT 11/23/2016 Narrative Resulting Agency Comment [facility] [address] ??[place] [phone] Isidro Heredia MD LAB - CHEMISTRY ORD ERABLES Performing Organization Address City/[facility]/ZIP Co de Phone Number [facility] INSURANCE BILL [address] [place] [address] * [facility] (11/23/2016 12:30 PM CDT) Erythrocyte Sedimentation Rate Westergren 12 0 - 30 mm/hr [facility] INSURANCE BILL Blood BLOOD SPECIMEN / Unknown 11/23/2016 12:30 PM CDT 11/23/2016 Narrative Resulting Agency Comment [facility] [address] ??[place] [phone] Isidro Heredia MD LAB - HEMATOLOGY OR DERABLES Performing Organization Address City/[facility] Co de Phone Number [facility] INSURANCE BILL [address] [place] [address] * (ABNORMAL) COMPREHENSIVE METABOLIC PANEL (11/23/2016 12:30 [...] CDT 11/23/2016 Narrative Resulting Agency Comment [facility] [address] [facility] ??[facility] [phone] Isidro Heredia MD LAB - CHEMISTRY ORD ERABLES [facility] INSURANCE BILL [address] [place] [address] * (ABNORMAL) CBC W AUTO DIFFERENTIAL (11/23/2016 [...] CDT 11/23/2016 Narrative Resulting Agency Comment [facility] [address] [facility] ??[facility] [phone] Isidro Heredia MD LAB - HEMATOLOGY OR DERABLES [facility] INSURANCE BILL [address] [place] [address] documented in this encounter Visit Diagnoses Diagnosis Rheumatoid arthritis involving multiple sites, unspecified rheumatoid factor presence (HCC)- Primary Hyperlipidemia, unspecified hyperlipidemia type documented in this encounter Care Teams Tray Drier Relationship Specialty Start Date End Date Tomas Hyman MD [address] [facility] [address] [place] [address] PCP - General Family Medicine 12/31/13 05/09/18 Isidro Heredia MD Rheumatology 02/09/11 documented as of this encounter
--- OUTSIDE RECORDS SUMMARY | 2024-05-10 10:24 | XMS_ITS | Encounter Summary ---
Author Organization [facility] Address [address] [place] [address] Care Team Providers Care Access Coordinator Name Role Phone Isidro Heredia MD Unavailable [phone] Tomas Hyman MD Primary Care Provider [phone] Reason for Visit * Treatment (Routine) - Closed Specialty Diagnoses / Procedures Referred By Lawrence shah Referred To Contact Infusion Therapy Nurse Diagnoses Rheumatoid arthritis without rheumatoid factor, multiple sites (HCC) Procedures MN INJECTION TOCILIZUMAB 1 MG Isidro Heredia MD 18 [place] [address] [address] Referral ID Status Reason Start Date Expiration Date Visits Re quested Visits Authorized [id number] Closed 06/26/2016 07/28/2016 1 6 Encounter Details Date Type Department Care Team (Late st Contact Info) Description 06/29/2016 1:30 PM PRINTED CIRCUIT BOARD PANELS DEVELOPER - 06/29/2016 11:59 PM PRINTED CIRCUIT BOARD PANELS DEVELOPER Hospital Encounter [facility] Medical [facility] - Rheumatology [address] [place] [address] Isidro Heredia MD [address] [place] [address] Discharge Disposition: Home or Self [...] Comments Blood Pressure 125/84 06/29/2016 2:00 PM PRINTED CIRCUIT BOARD PANELS DEVELOPER Pulse 80 06/29/2016 2:00 PM PRINTED CIRCUIT BOARD PANELS DEVELOPER Temperature 36.8 ??C (98.2 ??F) 06/29/2016 2:00 PM CS T Respiratory Rate 16 06/29/2016 2:00 PM PRINTED CIRCUIT BOARD PANELS DEVELOPER Oxygen Saturation - - Inhaled Oxygen Concentration - - Weight 116.6 kg (257 lb) 06/29/2016 2:00 PM PRINTED CIRCUIT BOARD PANELS DEVELOPER Height - - Body Mass Index 36.88 01/11/2016 3:12 PM CDT documented in this encounter Discharge Instructions * Discharge Instructions* Carlos Foreman RN - 06/29/2016 2:22 PM PRINTED CIRCUIT BOARD PANELS DEVELOPER [place] Rhe[facility]ology Post Infusion instructions You have [...] Sunday through 01-02 call the office at [phone] After hours or on the weekend call the exchange at [phone] If you have had lab work done [...] Hospital as your provider. Carlos Foreman RN TED CIRCUIT BOARD PANELS DEVELOPER documented in this encounter Medications at Time of Discharge Medication Sig Dispensed Refills Start Date End Date atorvastatin (LIPITOR) 40 MG tablet Take 1 (one) tablet by mouth at bedtime Swfweygowmx-Rqpduzrgx-V it C-Mn (GLUCOSAMINE CHONDR 1500 COMPLX PO) [...] 06/29/2016 2:17 PM CST JOSE Chalino Deng [id number] 06/29/2016 Diagnosis: Rheumatoid arthritis without rheumatoid factor, [...] Yes Next treatment? 4wk Carlos Foreman RN TED CIRCUIT BOARD PANELS DEVELOPER documented in this encounter Plan of Treatment Upcoming Encounters Date Type Department Care Team (Late st Contact Info) Description 06/03/2024 1:00 PM PRINTED CIRCUIT BOARD PANELS DEVELOPER Appointment [facility] - Rheumatology [address] [place] [address] [phone] 06/03/2024 2:00 PM PRINTED CIRCUIT BOARD PANELS DEVELOPER Office Visit [facility] - Rheumatology [address] [place] [address] [phone] Gloria Smith MD [address] [place] [phone] documented as of this encounter Visit Diagnoses [...] 24hrs RT $ Given 06/29/2016 2:10 PM PRINTED CIRCUIT BOARD PANELS DEVELOPER 800 mg 100 mL/hr documented in this encounter Care Teams Access Coordinator Relationship Specialty Start Date End Date Tomas Hyman MD [address] [place] [address] PCP - General Family Medicine 12/31/13 05/09/18 Isidro Heredia MD Rheumatology 02/09/11 documented as of this encounter
--- OUTSIDE RECORDS SUMMARY | 2024-05-10 10:24 | XMS_ITS | Encounter Summary ---
Author Organization [facility] Address [address] [facility] [place] [address] Care Team Providers Care Sagger Soak Name Role Phone Isidro Heredia MD Unavailable [phone] Tomas Hyman MD Primary Care Provider [phone] Reason for Visit * Treatment (Routine) - Closed Specialty Diagnoses / Procedures Referred By Lawrence shah Referred To Contact [place] [phone] [address] [facility] [address] [place] [address] Referral ID Status Reason Start Date Expiration Date Visits Re quested Visits Authorized [id number] Closed 12/21/2016 06/19/2017 1 3 Encounter Details Date Type Department Care Team (Latest Contact Info) Description 12/21/2016 10:12 AM CDT - 12/21/2016 10:14 AM T Hospital Encounter [facility] Pain Care [address] [place] [address] [place] [phone] [address] Discharge Disposition: Home or Self [...] 1 (one) tablet by mouth at bedtime Xcswecjjuik-Ciwjqivid-R it C-Mn (GLUCOSAMINE CHONDR 1500 COMPLX PO) [...] st Contact Info) Description 06/03/2024 1:00 PM WINDING OPERATOR Appointment [facility] - Rheumatology [address] [place] [address] [phone] 06/03/2024 2:00 PM WINDING OPERATOR Office Visit [facility] - Rheumatology [address] [place] [address] [phone] Gloria Smith MD [address] [place] [phone] documented as of this encounter Visit Diagnoses Not on filedocumented in this encounter Care Teams Sagger Soak Relationship Specialty Start Date End Date Tomas Hyman MD [address] [facility] [address] [place] [address] PCP - General Family Medicine 12/31/13 05/09/18 Isidro Heredia MD Rheumatology 02/09/11 documented as of this encounter
--- OUTSIDE RECORDS SUMMARY | 2024-05-10 10:24 | XMS_ITS | Encounter Summary ---
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, multiple sites (HCC) Procedures MA INJECTION TOCILIZUMAB 1 MG Isidro Heredia MD [address] [facility] [place] [address] [address] Referral ID Status Reason Start Date Expiration Date Visits Re quested Visits Authorized [id number] Closed 08/07/2016 04/29/2017 1 12 Encounter Details Date Type Department Care Team (Late st Contact Info) Description 11/23/2016 12:13 PM CDT - 11/23/2016 11:59 PM CDT Hospital Encounter [facility] Medical [facility] - Rheumatology [address] [place] [address] Isidro Heredia MD [address] [facility] [place] [address] Discharge Disposition: Home or Self [...] - 11/23/2016 1:49 PM CDT Discharge Instructions [facility] [...] through Sunday 9-5 call the office at [phone]. After hours or on the weekend call [...] 1 (one) tablet by mouth at bedtime Hyzztzfaxwb-Slnubttsy-C it C-Mn (GLUCOSAMINE CHONDR 1500 COMPLX PO) [...] 11/23/2016 12:43 PM CDT JOSE Chalino Deng [id number] 11/23/2016 Diagnosis: Rheumatoid arthritis without rheumatoid factor, [...] st Contact Info) Description 06/03/2024 1:00 PM RECEPTION Appointment [facility] - Rheumatology [address] [place], [place] [phone] 06/03/2024 2:00 PM RECEPTION Office Visit [facility] - Rheumatology [address] [place] [address] Gloria Smith MD [address] [place] [phone] documented as of this encounter Visit Diagnoses [...] mg documented in this encounter Care Teams Contact Agent Relationship Specialty Start Date End Date Tomas Hyman MD [address] [facility] [address] [place] [address] PCP - General Family Medicine 12/31/13 05/09/18 Isidro Heredia MD Rheumatology 02/09/11 documented as of this encounter
--- OUTSIDE RECORDS SUMMARY | 2024-05-10 10:24 | XMS_ITS | Encounter Summary ---
Author Organization [facility] Address [address] [facility] [place] [address] Care Team Providers Care Game Bird Farmer Name Role Phone Isidro Heredia MD Unavailable Tomas Hyman MD Primary Care Provider Reason for Visit * Reason Comments Narcotic Refill percocet * Evaluate & Treat (Routine) - Closed Specialty Diagnoses / Procedures Referred By Contsarahi t Referred To Contact Diagnoses Rheumatoid arthritis, unspecified (HCC) Procedures [place] OFFICE VISIT DURING HOURS Tomas Hyman MD [address] [place] [address] Isidro Heredia MD [address] [place] [address] Referral ID Status Reason Start Date Expiration Date Visits Re quested Visits Authorized [id number] Closed 06/15/2016 06/15/2017 6 6 Encounter Details Date Type Department Care Team (Late st Contact Info) Description 07/27/2016 1:30 PM CDT Office Visit [facility] - Rheumatology [address] [place] [address] Isidro Heredia MD [address] [place] [address] Chronic right-sided [...] on actemra mtx for ra a and pqrt5uds neuontin skelaxin Pain Level 7/10 right shoulder [...] 1 Tab by mouth once daily ??? Xfhxozlnzyy-Cppusmiuq-Fjm C-Mn (GLUCOSAMINE CHONDR 1500 COMPLX PO) Take [...] st Contact Info) Description 06/03/2024 1:00 PM VETERINARIAN SMALL ANIMAL Appointment [facility] - Rheumatology [address] [place] [address] 06/03/2024 2:00 PM VETERINARIAN SMALL ANIMAL Office Visit [facility] - Rheumatology [address] [place] [address] [phone] Gloria Smith MD [address] [place] [phone] documented as of this encounter Visit [...] deltoid documented in this encounter Care Teams Game Bird Farmer Relationship Specialty Start Date End Date Tomas Hyman MD [address] [facility] [address] [place] [address] PCP - General Family Medicine 12/31/13 05/09/18 Isidro Heredia MD Rheumatology 02/09/11 documented as of this encounter
--- OUTSIDE RECORDS SUMMARY | 2024-05-10 10:24 | XMS_ITS | Encounter Summary ---
Author Organization [facility] Address [address] [place] [place] [address] Care Team Providers Care Supervisor Nutritional Yeast Name Role Phone Isidro Heredia MD Unavailable [phone] Tomas Hyman MD Primary Care Provider [phone] Reason for Visit * Reason Onset Date Comments MEDICATION REFILL 08/09/2016 Encounter Details Date Type Department Care Team (Late Contact Info) Description 08/09/2016 Refill [facility] - Rheumatology [address] [place] [address] Isidro Heredia MD [address] [place] [address] MEDICATION REFILL Social History Tobacco Use [...] (Late Contact Info) Description 06/03/2024 1:00 PM DIAGNOSTIC SALES SPECIALIST Appointment [facility] - Rheumatology [address] [place] [address] 06/03/2024 2:00 PM DIAGNOSTIC SALES SPECIALIST Office Visit [facility] - Rheumatology [address] [place] [address] Gloria Smith MD [address] [place] [address] documented as of this encounter Visit Diagnoses Not on filedocumented in this encounter Care Teams Supervisor Nutritional Yeast Relationship Specialty Start Date End Date Tomas Hyman MD [address] [place] [address] PCP - General Family Medicine 12/31/13 05/09/18 Isidro Heredia MD Rheumatology 02/09/11 documented as of this encounter
--- OUTSIDE RECORDS SUMMARY | 2024-05-10 10:24 | XMS_ITS | Encounter Summary ---
Author Organization [facility] Address [address] [facility] [place] [address] Care Team Providers Care Fruit Or Nut Picker Name Role Phone Isidro Heredia MD Unavailable [phone] Tomas Hyman MD Primary Care Provider [phone] Encounter Details Date Type Department Care Team (Late st Contact Info) Description 08/24/2016 Orders Only [facility] Medical [facility] - Rheumatology [address] [place] [address] [phone] Isidro Heredia MD [address] [place] [address] Rheumatoid arthritis involving right shoulder with [...] Contact Info) Description 06/03/2024 1:00 PM SUPERVISOR BROADLOOM Appointment [facility] - Rheumatology [address] [place] [address] 06/03/2024 2:00 PM SUPERVISOR BROADLOOM Office Visit [facility] - Rheumatology [address] [place] [address] Gloria Smith MD [address] [place] [phone] documented as of this encounter Procedures [...] CDT 08/24/2016 Narrative Resulting Agency Comment [facility] [address] ??[facility] [phone] Isidro Heredia MD LAB - CHEMISTRY ORD ERABLES [facility] INSURANCE BILL [address] [place] [address] * SED RATE AUTO (ESR) (08/24/2016 1:00 PM CDT) Erythrocyte Sedimentation Rate Westergren 6 0 - 30 mm/hr [facility] INSURANCE BILL Blood BLOOD SPECIMEN / Unknown 08/24/2016 1:00 PM CDT 08/24/2016 Narrative Resulting Agency Comment [facility] [id number] ??[facility], [facility] [phone] Isidro Heredia MD LAB - HEMATOLOGY OR DERABLES Performing Organization Address City/[facility]/ZIP Co de Phone Number [facility] INSURANCE BILL [address] [place] [address] * (ABNORMAL) COMPREHENSIVE METABOLIC PANEL (08/24/2016 1:00 [...] CDT 08/24/2016 Narrative Resulting Agency Comment [facility] [address] [facility] ??[facility] [phone] Isidro Heredia MD LAB - CHEMISTRY ORD ERABLES [facility] INSURANCE BILL [address] [place] [address] * CBC W AUTO DIFFERENTIAL (08/24/2016 1:00 [...] CDT 08/24/2016 Narrative Resulting Agency Comment [facility] [address] [facility] ??[facility] [phone] Isidro Heredia MD LAB - HEMATOLOGY OR DERABLES [facility] INSURANCE BILL [address] [place] [address] documented in this encounter Visit Diagnoses Diagnosis 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
--- OUTSIDE RECORDS SUMMARY | 2024-05-10 10:24 | XMS_ITS | Encounter Summary ---
Author Organization [facility] Address [address] [facility] [place] [address] Care Team Providers Care Public Works Supervisor Name Role Phone Isidro Heredia MD Unavailable [phone] Tomas Hyman MD Primary Care Provider [phone] Reason for Visit * Reason Comments Refill Request Encounter Details Date Type Department Care Team (Late Contact Info) Description 06/19/2016 Refill [facility] - Rheumatology [address] [place] [address] Isidro Heredia MD [address] [place] [address] Refill Request Social History Tobacco Use [...] (Late Contact Info) Description 06/03/2024 1:00 PM WHITE SUGAR BOILER Appointment [facility] - Rheumatology [address] [place] [address] 06/03/2024 2:00 PM WHITE SUGAR BOILER Office Visit [facility] Rheumatology [address] [place] [address] Gloria Smith MD [address] [place], [place] [address] [address] documented as of this encounter Visit Diagnoses Not on filedocumented in this encounter Care Teams Public Works Supervisor Relationship Specialty Start Date End Date Tomas Hyman MD [address] [place] [address] PCP - General Family Medicine 12/31/13 05/09/18 Isidro Heredia MD Rheumatology 02/09/11 documented as of this encounter
--- OUTSIDE RECORDS SUMMARY | 2024-05-10 10:24 | XMS_ITS | Encounter Summary ---
Author Organization [facility] Address [address] [facility] [place] [address] Care Team Providers Care Orthopedic Tech Name Role Phone Isidro Heredia MD Unavailable [phone] Tomas Hyman MD Primary Care Provider [phone] Encounter Details Date Type Department Care Team (Late st Contact Info) Description 06/29/[address] [facility] Medical [facility] - Rheumatology [address] [place] [address] [phone] Isidro Heredia MD [address] [place] [address] Rheumatoid arthritis of multiple sites with [...] sent via my chart regarding lab results R SPATIAL SCIENTIST * Isidro Heredia MD - 07/02/2016 12:51 PM CST mtx [place] meron R SPATIAL SCIENTIST documented in this encounter Plan of Treatment Upcoming Encounters Date Type Department Care Team (Late st Contact Info) Description 06/03/2024 1:00 PM OTHER SPATIAL SCIENTIST Appointment [facility] - Rheumatology [address] [place] [address] [phone] 06/03/2024 2:00 PM OTHER SPATIAL SCIENTIST Office Visit [facility] - Rheumatology [address] [place] [address] Gloria Smith MD [address] [place] [phone] documented as of this encounter Procedures Procedure Name Priority Date/Time Associated Diagnosis Comments ERYTHROCYTE SEDIMENTATION RATE Routine 06/29/2016 1:30 AM OTHER SPATIAL SCIENTIST Rheumatoid arthritis of multiple sites with negative rheumatoid factor (HCC) CBC W AUTO DIFFERENTIAL Routine 06/29/2016 1:30 AM OTHER SPATIAL SCIENTIST Rheumatoid arthritis of multiple sites with negative rheumatoid factor (HCC) COMPREHENSIVE METABOLIC PANEL Routine 06/29/2016 1:30 AM OTHER SPATIAL SCIENTIST Rheumatoid arthritis of multiple sites with negative rheumatoid factor (HCC) documented in this encounter Results * SED RATE WESTERGREN (06/29/2016 1:30 AM OTHER SPATIAL SCIENTIST) Erythrocyte Sedimentation Rate Westergren 10 0 - 30 mm/hr [facility] INSURANCE BILL Blood BLOOD SPECIMEN / Unknown 06/29/2016 1:30 AM OTHER SPATIAL SCIENTIST 06/29/2016 Narrative Resulting Agency Comment [facility] [address] ??[facility] [phone] Isidro Heredia MD LAB - HEMATOLOGY OR DERABLES [facility] INSURANCE BILL [address] [place] [address] * (ABNORMAL) COMPREHENSIVE METABOLIC PANEL (06/29/2016 1:30 AM OTHER SPATIAL SCIENTIST) Glucose 101(H) 65 - 99 mg/dL [facility] [...] BLOOD SPECIMEN / Unknown 06/29/2016 1:30 AM OTHER SPATIAL SCIENTIST 06/29/2016 Narrative Resulting Agency Comment [facility] [address] [facility] ??[facility] [phone] Isidro Heredia MD LAB - CHEMISTRY ORD ERABLES [facility] INSURANCE BILL [address] [place] [address] * CBC W AUTO DIFFERENTIAL (06/29/2016 1:30 AM OTHER SPATIAL SCIENTIST) Pathologist [facility] WBC 8.7 3.4 - 10.8 x10E3/uL [...] BLOOD SPECIMEN / Unknown 06/29/2016 1:30 AM OTHER SPATIAL SCIENTIST 06/29/2016 Narrative Resulting Agency Comment [facility] [address] [facility] ??[facility] [phone] Isidro Heredia MD LAB - HEMATOLOGY OR DERABLES [facility] INSURANCE BILL [address] [place] [address] documented in this encounter Visit Diagnoses Diagnosis Rheumatoid arthritis 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
--- OUTSIDE RECORDS SUMMARY | 2024-05-10 10:24 | XMS_ITS | Encounter Summary ---
Author Organization [facility] Address [address] [facility] [place] [address] Care Team Providers Care Moto Mix Operator Name Role Phone Isidro Heredia MD Unavailable [phone] Tomas Hyman MD Primary Care Provider [phone] Reason for Visit * Reason Comments Refill Request Encounter Details Date Type Department Care Team (Late Contact Info) Description 07/07/2016 Refill [facility] - Rheumatology [address] [place] [address] Isirdo Heredia MD [address] [place] [address] Refill Request Social History Tobacco Use [...] (Late Contact Info) Description 06/03/2024 1:00 PM SURFACE MINER Appointment [facility] - Rheumatology [address] [place] [address] 06/03/2024 2:00 PM SURFACE MINER Office Visit [facility] Rheumatology [address] [place] [address] Gloria Smith MD [address] [place], [place] [address] [address] documented as of this encounter Visit Diagnoses Not on filedocumented in this encounter Care Teams Moto Mix Operator Relationship Specialty Start Date End Date Tomas Hyman MD [address] [place] [address] PCP - General Family Medicine 12/31/13 05/09/18 Isidro Heredia MD Rheumatology 02/09/11 documented as of this encounter
--- OUTSIDE RECORDS SUMMARY | 2024-05-10 10:24 | XMS_ITS | Encounter Summary ---
Author Organization [facility] Address [address] [facility] [place] [address] Care Team Providers Care Junior Database Administrator Name Role Phone Isidro Heredia MD Unavailable [phone] Tomas Hyman MD Primary Care Provider [phone] Encounter Details Date Type Department Care Team (Latest Contact Info) Description 12/21/2016 10:15 AM CDT - 12/21/2016 11:59 PM CDT Hospital Encounter [facility] Pain Care [address] [place] [address] [place] [address] [place] [address] Discharge Disposition: Home or Self Care Social [...] Henao RN - 12/21/2016 10:46 AM CDT [facility] Procedure Center Pain Discharge Instructions [...] headache, or any other problems, please call [phone] or after hours callDr. Mirza at [phone] and tell them your physician's name. The exchange will alert the physician environmental air specialist. If sedation is given: No sedation given. For Your Next Visit: No additional instructions. Other Instructions: May remove band-aid in 12 Hours. Return KIMBERLEY 2 in 1 week. documented in this encounter Medications at Time of Discharge Medication Sig Dispensed Refills Start Date End Date atorvastatin (LIPITOR) 40 MG tablet Take 1 (one) tablet by mouth at bedtime Oyrkuiokqjm-Evnpsedwn-D it C-Mn (GLUCOSAMINE CHONDR 1500 COMPLX PO) [...] Coumadin, Plavix or other blood thinners. Responsible city bus driver is not needed due to the [...] st Contact Info) Description 06/03/2024 1:00 PM BEAD WRAPPER Appointment [facility] - Rheumatology [address] [place] [address] 06/03/2024 2:00 PM BEAD WRAPPER Office Visit [facility] - Rheumatology [address] [place] [address] Gloria Smith MD [address] [place] [address] documented as of this encounter Procedures [...] Coumadin, Plavix or other blood thinners. ??Responsible city bus driver is not needed due to the [...] mg documented in this encounter Care Teams Junior Database Administrator Relationship Specialty Start Date End Date Tomas Hyman MD [address] [place] [address] PCP - General Family Medicine 12/31/13 05/09/18 Isidro Heredia MD Rheumatology 02/09/11 documented as of this encounter
--- OUTSIDE RECORDS SUMMARY | 2024-05-10 10:24 | XMS_ITS | Encounter Summary ---
Author Organization [facility] Address [address] [place] [address] Care Team Providers Care Medical Device Sales Consultant Name Role Phone Isidro Heredia MD Unavailable [phone] Tomas Hyman MD Primary Care Provider [phone] Reason for Visit * Reason Comments Refill Request Encounter Details Date Type Department Care Team (Late Contact Info) Description 07/20/2016 Refill [facility] - Rheumatology [address] [place] [address] Isidro Heredia MD [address] [place] [address] Refill Request Social History Tobacco Use [...] (Late Contact Info) Description 06/03/2024 1:00 PM CRYSTAL GROWING TECHNICIAN Appointment [facility] - Rheumatology [address] [place] [address] 06/03/2024 2:00 PM CRYSTAL GROWING TECHNICIAN Office Visit [facility] Rheumatology [address] [place] [address] Gloria Smith MD [address] [place], [place] [address], [place] [address] documented as of this encounter Visit Diagnoses Not on filedocumented in this encounter Care Teams Medical Device Sales Consultant Relationship Specialty Start Date End Date Tomas Hyman MD [address] [place] [address] PCP - General Family Medicine 12/31/13 05/09/18 Isidro Heredia MD Rheumatology 02/09/11 documented as of this encounter
--- OUTSIDE RECORDS SUMMARY | 2024-05-10 10:24 | XMS_ITS | Encounter Summary ---
Author Organization [facility] Address [address] [facility] [place] [address] Care Team Providers Care Mine Engineer Name Role Phone Isidro Heredia MD Unavailable [phone] Tomas Hyman MD Primary Care Provider [phone] Reason for Visit * Reason Comments Refill Request Encounter Details Date Type Department Care Team (Late Contact Info) Description 11/18/2016 Refill [facility] - Rheumatology [address] [place] [address] Isidro Heredia MD [address] [place] [address] Refill Request Social History Tobacco Use [...] Contact Info) Description 06/03/2024 1:00 PM SUPERVISOR MAPLE PRODUCTS Appointment [facility] - Rheumatology [address] [place] [address] 06/03/2024 2:00 PM SUPERVISOR MAPLE PRODUCTS Office Visit [facility] Rheumatology [address] [place] [address] Gloria Smith MD [address] [place], [place] [address] [address] documented as of this encounter Visit Diagnoses Not on filedocumented in this encounter Care Teams Mine Engineer Relationship Specialty Start Date End Date Tomas Hyman MD [address] [place] [address] PCP - General Family Medicine 12/31/13 05/09/18 Isidro Heredia MD Rheumatology 02/09/11 documented as of this encounter
--- OUTSIDE RECORDS SUMMARY | 2024-05-10 10:25 | XMS_ITS | Encounter Summary ---
Author Organization [facility] Address [address] [facility] [place] [address] Care Team Providers Care Educational Director Name Role Phone Isidro Heredia MD Unavailable [phone] Tomas Hyman MD Primary Care Provider Reason for Visit * Treatment (Routine) - Closed Specialty Diagnoses / Procedures Referred By Lawrence shah Referred To Contact Infusion Therapy Nurse Diagnoses Rheumatoid arthritis(714.0) (HCC) Rheumatoid arthritis without rheumatoid factor, multiple sites (HCC) Procedures [place] INFLIXIMAB INJECTION [place] INJECTION TOCILIZUMAB 1 MG Isidro Heredia MD [address] [place] [address] [address] Referral ID Status Reason Start Date Expiration Date Visits Re quested Visits Authorized [id number] Closed 01/07/2015 01/08/2016 1 12 Encounter Details Date Type Department Care Team (Late st Contact Info) Description 08/16/2015 3:37 PM CDT - 08/16/2015 11:59 PM CDT Hospital Encounter [facility] Medical [facility] - Rheumatology [address] [place] [address] Isidro Heredia MD [address] [place] [address] Discharge Disposition: Home or Self [...] Sahu RN - 08/16/2015 3:58 PM CDT [place] Rheumatology Post Infusion instructions [...] through Sunday 9-5 call the office at [phone] After hours or on the weekend call the exchange at [phone] If you have had lab work done [...] Sig Dispensed Refills Start Date End Date Wulmocqfwqn-Uqchiciib-L it C-Mn (GLUCOSAMINE CHONDR 1500 COMPLX PO) [...] - 08/16/2015 4:13 PM CDT JOSE Deng [id number] 08/16/2015 Diagnosis: Rheumatoid arthritis without rheumatoid factor, [...] Contact Info) Description 06/03/2024 1:00 PM SENIOR ENGINEERING TECHNICIAN Appointment [facility] - Rheumatology [address] [place] [address] 06/03/2024 2:00 PM SENIOR ENGINEERING TECHNICIAN Office Visit [facility] - Rheumatology [address] [place] [address] Gloria Smith MD [address] [place] [phone] documented as of this encounter Visit Diagnoses [...] mL/hr documented in this encounter Care Teams Educational Director Relationship Specialty Start Date End Date Tomas Hyman MD [address] [facility] [address] [place] [address] PCP - General Family Medicine 12/31/13 05/09/18 Isidro Heredia MD Rheumatology 02/09/11 documented as of this encounter
--- OUTSIDE RECORDS SUMMARY | 2024-05-10 10:25 | XMS_ITS | Encounter Summary ---
Author Organization [facility] Address [address] [facility] [place] [address] Care Team Providers Care Compensation Agent Name Role Phone Isidro Heredia MD Unavailable [phone] Tomas Hyman MD Primary Care Provider [phone] Encounter Details Date Type Department Care Team (Latest Contact Info) Description 09/07/2015 9:54 AM CDT - 09/07/2015 11:59 PM CDT Hospital Encounter [facility] Pain Care [address] [place] [address] [place] [address] [place] [address] Discharge Disposition: Home or Self Care Social [...] Pond RN - 09/07/2015 10:19 AM CDT [facility] Procedure Center Pain Discharge Instructions Selective Epidural [...] headache, or any other problems, please call [phone] or after hours callDr. Mirza at [phone] and tell them your physician's name. The exchange will alert the physician stallion keeper. If sedation is given: No sedation given. For Your Next Visit: No additional instructions. Other Instructions: May remove band-aid in 12 Hours. Return in one week for KIMBERLEY #2 documented in this encounter Medications at Time of Discharge Medication Sig Dispensed Refills Start Date End Date Mfzywpgxvio-Rewgjioex-B it C-Mn (GLUCOSAMINE CHONDR 1500 COMPLX PO) [...] Coumadin, Plavix or other blood thinners. Responsible regional company hazmat tanker driver is not needed due to [...] st Contact Info) Description 06/03/2024 1:00 PM COMPOUNDING PHARMACY TECHNICIAN Appointment [facility] - Rheumatology [address] [place] [address] [phone] 06/03/2024 2:00 PM COMPOUNDING PHARMACY TECHNICIAN Office Visit [facility] - Rheumatology [address] [place] [address] [phone] Gloria Smith MD [address] [place] [phone] documented as of this encounter Procedures Procedure [...] Coumadin, Plavix or other blood thinners. ??Responsible regional company hazmat tanker driver is not needed due to [...] Back documented in this encounter Care Teams Compensation Agent Relationship Specialty Start Date End Date Tomas Hyman MD [address] [facility] [address] [place] [address] PCP - General Family Medicine 12/31/13 05/09/18 Isidro Heredia MD Rheumatology 02/09/11 documented as of this encounter
--- OUTSIDE RECORDS SUMMARY | 2024-05-10 10:25 | XMS_ITS | Encounter Summary ---
Author Organization [facility] Address [address] [place] [address] Care Team Providers Care Industry Analyst Name Role Phone Isidro Heredia MD Unavailable [phone] Tomas Hyman MD Primary Care Provider Reason for Visit * Treatment (Routine) - Closed Specialty Diagnoses / Procedures Referred By Lawrence hsah Referred To Contact Infusion Therapy Nurse Diagnoses Rheumatoid arthritis(714.0) (HCC) Rheumatoid arthritis without rheumatoid factor, multiple sites (HCC) Procedures [place] INFLIXIMAB INJECTION [place] INJECTION TOCILIZUMAB 1 MG Isidro Heredia MD [address] [place] [address] [address] Referral ID Status Reason Start Date Expiration Date Visits Re quested Visits Authorized [id number] Closed 01/07/2015 01/08/2016 1 12 Encounter Details Date Type Department Care Team (Late st Contact Info) Description 07/19/2015 4:20 PM CDT - 07/19/2015 11:59 PM CDT Hospital Encounter [facility] Medical [facility] - Rheumatology [address] [place] [address] Isidro Heredia MD [address] [place] [address] Discharge Disposition: Home or Self [...] this encounter Discharge Instructions * Discharge Instructions* Jdoy Sahu RN - 07/19/2015 4:51 PM CDT [place] Rheumatology Post Infusion instructions [...] through Sunday 9-5 call the office at [phone] After hours or on the weekend call the exchange at [phone] If you have had lab work done [...] Sig Dispensed Refills Start Date End Date Kcdxkwzyeat-Advrthjhk-K it C-Mn (GLUCOSAMINE CHONDR 1500 COMPLX PO) [...] - 07/19/2015 4:53 PM CDT JOSE Deng [id number] 07/19/2015 Diagnosis: Rheumatoid arthritis without rheumatoid factor, multiple sites [M06.09]. Pt denies symptoms of infection or antibiotic use, no open wounds, or recent surgery, or plans for surgery in the next couple of weeks. Pt is aware that we use the 0-10 pain scale to assess discomfort. 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 desktop engineer pt signs consent for treatment for [...] Contact Info) Description 06/03/2024 1:00 PM MANAGER GAMES Appointment [facility] - Rheumatology [address] [place] [phone] 06/03/2024 2:00 PM MANAGER GAMES Office Visit [facility] - Rheumatology [address] [place] [address] [phone] Gloria Smith MD [address] [place] [phone] documented as of this encounter Visit Diagnoses [...] mL/hr documented in this encounter Care Teams Industry Analyst Relationship Specialty Start Date End Date Tomas Hyman MD [address] [facility] [address] [place] [address] PCP - General Family Medicine 12/31/13 05/09/18 Isidro Heredia MD Rheumatology 02/09/11 documented as of this encounter
--- OUTSIDE RECORDS SUMMARY | 2024-05-10 10:25 | XMS_ITS | Encounter Summary ---
Author Organization [facility] Address [address] [facility] [place] [address] Care Team Providers Care Driller Operator Name Role Phone Isidro Heredia MD Unavailable [phone] Tomas Hyman MD Primary Care Provider [phone] Reason for Visit * Treatment (Routine) - Closed Specialty Diagnoses / Procedures Referred By Lawrence shah Referred To Contact Infusion Therapy Nurse Diagnoses Rheumatoid arthritis without rheumatoid factor, multiple sites (HCC) Procedures [place] INJECTION TOCILIZUMAB 1 MG Isidro Heredia MD [address] [place] [address] [address] Referral ID Status Reason Start Date Expiration Date Visits Re quested Visits Authorized [id number] Closed 12/16/2015 06/07/2016 1 6 Encounter Details Date Type Department Care Team (Late st Contact Info) Description 06/01/2016 1:13 PM RESIDENTIAL GAS HEAT TECHNICIAN - 06/01/2016 11:59 PM RESIDENTIAL GAS HEAT TECHNICIAN Hospital Encounter [facility] Medical [facility] - Rheumatology [address] [place] [address] Isidro Heredia MD [address] [place] [address] Discharge Disposition: Home or Self [...] Comments Blood Pressure 120/76 06/01/2016 1:42 PM RESIDENTIAL GAS HEAT TECHNICIAN Pulse 85 06/01/2016 1:42 PM RESIDENTIAL GAS HEAT TECHNICIAN Temperature 36.9 ??C (98.4 ??F) 06/01/2016 1:42 PM CS T Respiratory Rate 16 06/01/2016 1:42 PM RESIDENTIAL GAS HEAT TECHNICIAN Oxygen Saturation - - Inhaled Oxygen Concentration - - Weight 119.3 kg (263 lb) 06/01/2016 1:42 PM RESIDENTIAL GAS HEAT TECHNICIAN Height - - Body Mass Index 37.74 01/11/2016 3:12 PM CDT documented in this encounter Discharge Instructions * Discharge Instructions* Jody Sahu RN - 06/01/2016 1:46 PM RESIDENTIAL GAS HEAT TECHNICIAN [place] Rheumatology Post Infusion instructions You have [...] Sunday through 01-02 call the office at [phone] After hours or on the weekend call the exchange at [phone] If you have had lab work done [...] Hospital as your provider. Jody Sahu RN DENTIAL GAS HEAT TECHNICIAN documented in this encounter Medications at Time of Discharge Medication Sig Dispensed Refills Start Date End Date atorvastatin (LIPITOR) 40 MG tablet Take 1 (one) tablet by mouth at bedtime Nmozifkcoxk-Fyyapbmyi-B it C-Mn (GLUCOSAMINE CHONDR 1500 COMPLX PO) [...] - 06/01/2016 1:59 PM CST JOSE Deng [id number] 06/01/2016 Diagnosis: Rheumatoid arthritis without rheumatoid factor, [...] Next treatment? 4 weeks Jody Sahu RN DENTIAL GAS HEAT TECHNICIAN documented in this encounter Plan of Treatment Upcoming Encounters Date Type Department Care Team (Late st Contact Info) Description 06/03/2024 1:00 PM RESIDENTIAL GAS HEAT TECHNICIAN Appointment [facility] - Rheumatology [address] [place] [address] 06/03/2024 2:00 PM RESIDENTIAL GAS HEAT TECHNICIAN Office Visit [facility] - Rheumatology [address] [place] [address] Gloria Smith MD [address] [place] [phone] documented as of this encounter Visit Diagnoses [...] 24hrs RT $ Given 06/01/2016 1:55 PM RESIDENTIAL GAS HEAT TECHNICIAN 800 mg documented in this encounter Care Teams Driller Operator Relationship Specialty Start Date End Date Tomas Hyman MD [address] [facility] [address] [place] [address] PCP - General Family Medicine 12/31/13 05/09/18 Isidro Heredia MD Rheumatology 02/09/11 documented as of this encounter
--- OUTSIDE RECORDS SUMMARY | 2024-05-10 10:25 | XMS_ITS | Encounter Summary ---
Author Organization [facility] Address [address] [facility] [place] [address] Care Team Providers Care Outside Sales Executive Name Role Phone Isidro Heredia MD Unavailable [phone] Tomas Hyman MD Primary Care Provider [phone] Reason for Visit * Reason Onset Date Comments MEDICATION REFILL 07/19/2015 Encounter Details Date Type Department Care Team (Late Contact Info) Description 07/19/2015 Refill [facility] - Rheumatology [address] [place] [address] Isidro Heredia MD [address] [place] [address] MEDICATION REFILL Social History Tobacco Use [...] (Late Contact Info) Description 06/03/2024 1:00 PM CONCRETE FINISHER Appointment [facility] - Rheumatology [address] [place] [address] 06/03/2024 2:00 PM CONCRETE FINISHER Office Visit [facility] - Rheumatology [address] [place] [address] Gloria Smith MD [address] [place] [address] documented as of this encounter Visit Diagnoses Diagnosis Rheumatoid arthritis of multiple 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 factor (HCC)- Primary Rheumatoid arthritis documented in this encounter Care Teams Outside Sales Executive Relationship Specialty Start Date End Date Tomas Hyman MD [address] [facility] [address] [place] [address] PCP - General Family Medicine 12/31/13 05/09/18 Isidro Heredia MD Rheumatology 02/09/11 documented as of this encounter
--- OUTSIDE RECORDS SUMMARY | 2024-05-10 10:25 | XMS_ITS | Encounter Summary ---
Author Organization [facility] Address [address] [place] [address] Care Team Providers Care Parts Control Clerk Name Role Phone Isidro Heredia MD Unavailable [phone] Tomas Hyman MD Primary Care Provider [phone] Reason for Visit * Treatment (Routine) - Closed Specialty Diagnoses / Procedures Referred By Lawrence shah Referred To Contact Infusion Therapy Nurse Diagnoses Rheumatoid arthritis without rheumatoid factor, multiple sites (HCC) Procedures [place] INJECTION TOCILIZUMAB 1 MG Isidro Heredia MD [address] [place] [address] [address] Referral ID Status Reason Start Date Expiration Date Visits Re quested Visits Authorized [id number] Closed 12/16/2015 06/07/2016 1 6 Encounter Details Date Type Department Care Team (Late st Contact Info) Description 02/23/2016 1:23 PM CDT - 02/23/2016 11:59 PM CDT Hospital Encounter [facility] Medical [facility] - Rheumatology [address] [place] [address] Isidro Heredia MD [address] [facility] [place] [address] Discharge Disposition: Home or Self [...] Sahu RN - 02/23/2016 2:03 PM CDT [place] Rheumatology Post Infusion instructions [...] Sunday through Sunday-5 call the office at [phone] After hours or on the weekend call the exchange at [phone] If you have had lab work done [...] 1 (one) tablet by mouth at bedtime Tojzfdmnlvq-Zbciillxq-E it C-Mn (GLUCOSAMINE CHONDR 1500 COMPLX PO) [...] 02/23/2016 1:58 PM CDT JOSE Chalino Deng [id number] 02/23/2016 Diagnosis: Rheumatoid arthritis without rheumatoid factor, multiple sites [M06.09]. Pt denies symptoms of infection or antibiotic use, no open wounds, or recent surgery, or plans for surgery in the next couple of weeks. Pt is aware that we use the 0-10 pain scale to assess discomfort. 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 treatment for [...] Contact Info) Description 06/03/2024 1:00 PM PICKER TENDER Appointment [facility] - Rheumatology [address] [place] [address] 06/03/2024 2:00 PM PICKER TENDER Office Visit [facility] - Rheumatology [address] [place] [address] Gloria Smith MD [address] [place] [phone] documented as of this encounter Visit Diagnoses [...] mg documented in this encounter Care Teams Parts Control Clerk Relationship Specialty Start Date End Date Tomas Hyman MD [address] [facility] [address] [place] [address] PCP - General Family Medicine 12/31/13 05/09/18 Isidro Heredia MD Rheumatology 02/09/11 documented as of this encounter
--- OUTSIDE RECORDS SUMMARY | 2024-05-10 10:25 | XMS_ITS | Encounter Summary ---
Author Organization [facility] Address [address] [facility] [place] [address] Care Team Providers Care Garnett Feeder Name Role Phone Isidro Heredia MD Unavailable [phone] Tomas Hyman MD Primary Care Provider [phone] Reason for Visit * Reason Comments Refill Request Encounter Details Date Type Department Care Team (Late Contact Info) Description 05/23/2016 Refill [facility] - Rheumatology [address] [place] [address] Isidro Heredia MD [address] [place] [address] Refill Request Social History Tobacco Use [...] (Late Contact Info) Description 06/03/2024 1:00 PM PROPELLANT CHARGE ZONE ASSEMBLER Appointment [facility] - Rheumatology [address] [place] [address] 06/03/2024 2:00 PM PROPELLANT CHARGE ZONE ASSEMBLER Office Visit [facility] Rheumatology [address] [place] [address] Gloria Smith MD [address] [place] [address], [place] [address] documented as of this encounter Visit Diagnoses Not on filedocumented in this encounter Care Teams Garnett Feeder Relationship Specialty Start Date End Date Tomas Hyman MD [address] [place] [address] PCP - General Family Medicine 12/31/13 05/09/18 Isidro Heredia MD Rheumatology 02/09/11 documented as of this encounter
--- OUTSIDE RECORDS SUMMARY | 2024-05-10 10:25 | XMS_ITS | Encounter Summary ---
Author Organization [facility] Address [address] [facility] [place] [address] Care Team Providers Care Development Chemist Name Role Phone Isidro Heredia MD Unavailable [phone] Tomas Hyman MD Primary Care Provider [phone] Reason for Visit * Reason Comments Rheumatoid Arthritis Encounter Details Date Type Department Care Team (Late st Contact Info) Description 06/01/2016 2:00 PM GENERAL MAINTENANCE ENGINEER Office Visit [facility] - Rheumatology [address] [place] [address] Isidro Heredia MD [address] [place] [address] Chronic right-sided low back pain with [...] Comments Blood Pressure 120/76 06/01/2016 2:09 PM GENERAL MAINTENANCE ENGINEER Pulse 85 06/01/2016 2:09 PM GENERAL MAINTENANCE ENGINEER Temperature - - Respiratory Rate - - Oxygen Saturation - - Inhaled Oxygen Concentration - - Weight 119.3 kg (263 lb) 06/01/2016 2:09 PM GENERAL MAINTENANCE ENGINEER Height - - Body Mass Index 37.74 [...] 1 Tab by mouth once daily ??? Eslrieqtitl-Zxwxqzvap-Kpy C-Mn (GLUCOSAMINE CHONDR 1500 COMPLX PO) Take [...] Follow up in office in 4 weeks RAL MAINTENANCE ENGINEER documented in this encounter Plan of Treatment Upcoming Encounters Date Type Department Care Team (Late st Contact Info) Description 06/03/2024 1:00 PM GENERAL MAINTENANCE ENGINEER Appointment [facility] - Rheumatology [address] [place] [address] [phone] 06/03/2024 2:00 PM GENERAL MAINTENANCE ENGINEER Office Visit [facility] - Rheumatology [address] [place] [address] [phone] Gloria Smith MD [address] [place] [address] [phone] documented as of this encounter Visit Diagnoses Diagnosis Chronic right-sided low back pain with right-sided sciatica- Primary Rheumatoid arthritis of multiple 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 factor (HCC) Rheumatoid arthritis Rheumatoid arthritis 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
--- OUTSIDE RECORDS SUMMARY | 2024-05-10 10:25 | XMS_ITS | Encounter Summary ---
Author Organization [facility] Address [address] [facility] [place] [place] [address] Care Team Providers Care Statistics Teacher Name Role Phone Isidro Heredia MD Unavailable [phone] Tomas Hyman MD Primary Care Provider [phone] Encounter Details Date Type Department Care Team (Late st Contact Info) Description 02/23/2016 Orders Only [facility] Medical [facility] - Rheumatology [address] [place] [address] [phone] Isidro Heredia MD [address] [place] [address] Rheumatoid arthritis of multiple sites with [...] - 03/01/2016 11:05 AM CDTPatient notified via [employer]. * Isidro Heredia MD - 03/01/2016 9:15 AM CDTSl anemia Hb 11.8 plts ok 164 mtx ok meron documented in this encounter Plan of Treatment Upcoming Encounters Date Type Department Care Team (Late st Contact Info) Description 06/03/2024 1:00 PM MINERAL MIXER Appointment [facility] - Rheumatology [address] [place] [address] 06/03/2024 2:00 PM MINERAL MIXER Office Visit [facility] - Rheumatology [address] [place] [address] Gloria Smith MD [address] [place] [address] [phone] documented as of this encounter Procedures Procedure [...] performed due to degeneration of specimen. ?TEST: ??[id number] ??Sedimentation Rate-Westergren Ancillary determined the test is not needed 02/23/2016 1:30 AM CDT 02/23/2016 6:29 PM CDT Narrative Resulting Agency Comment [facility] [address] [facility] ??Critical access hospital [id number] Isidro Heredia MD LAB - CHEMISTRY ORD ERABLES [facility] INSURANCE BILL [address] [place] [address] * SED RATE WESTERGREN (02/23/2016 1:30 AM CDT) Erythrocyte Sedimentation Rate Westergren NOT NEEDED mm/hr [facility] INSURANCE BILL Comment: Test could not be performed due to degeneration of specimen. Ancillary determined the test is not needed Blood BLOOD SPECIMEN / Unknown 02/23/2016 1:30 AM CDT 02/23/2016 6:29 PM CDT Narrative Resulting Agency Comment [facility] [address] [facility] ??Critical access hospital [id number] Isidro Heredia MD LAB - HEMATOLOGY OR DERABLES [facility] INSURANCE BILL [address] [place] [address] * (ABNORMAL) COMPREHENSIVE METABOLIC PANEL (02/23/2016 1:30 [...] PM CDT Narrative Resulting Agency Comment [facility] [address] [facility] ??Critical access hospital [id number] Isidro Heredia MD LAB - CHEMISTRY ORD ERABLES [facility] INSURANCE BILL [address] [place] [address] * (ABNORMAL) CBC W AUTO DIFFERENTIAL (02/23/2016 [...] PM CDT Narrative Resulting Agency Comment [facility] [address] ??Critical access hospital [id number] Isidro Heredia MD LAB - HEMATOLOGY OR DERABLES [facility] INSURANCE BILL [address] [place] [address] documented in this encounter Visit Diagnoses Diagnosis Rheumatoid arthritis of multiple sites with negative rheumatoid factor (HCC)- Primary documented in this encounter Care Teams Statistics Teacher Relationship Specialty Start Date End Date Tomas Hyman MD [address] [facility] [address] [place] [address] PCP - General Family Medicine 12/31/13 05/09/18 Isidro Heredia MD Rheumatology 02/09/11 documented as of this encounter
--- OUTSIDE RECORDS SUMMARY | 2024-05-10 10:25 | XMS_ITS | Encounter Summary ---
Author Organization [facility] Address [address] [place] [address] Care Team Providers Care Corrections Officer Name Role Phone Isidro Heredia MD Unavailable [phone] Tomas Hyman MD Primary Care Provider [phone] Reason for Visit * Reason Comments Refill Request Encounter Details Date Type Department Care Team (Late Contact Info) Description 11/12/2015 Refill [facility] - Rheumatology [address] [place] [address] Isidro Heredia MD [address] [place] [address] Refill Request Social History Tobacco Use [...] (Late Contact Info) Description 06/03/2024 1:00 PM BLOCK SPLITTER OPERATOR Appointment [facility] - Rheumatology [address] [place] [address] 06/03/2024 2:00 PM BLOCK SPLITTER OPERATOR Office Visit [facility] Rheumatology [address] [place] [address] Gloria Smith MD [address] [place] [address], [place] [address] documented as of this encounter Visit Diagnoses Not on filedocumented in this encounter Care Teams Corrections Officer Relationship Specialty Start Date End Date Tomas Hyman MD [address] [place] [address] PCP - General Family Medicine 12/31/13 05/09/18 Isidro Heredia MD Rheumatology 02/09/11 documented as of this encounter
--- OUTSIDE RECORDS SUMMARY | 2024-05-10 10:25 | XMS_ITS | Encounter Summary ---
Author Organization [facility] Address [address] [facility] [place] [address] Care Team Providers Care Dinkey Engineer Name Role Phone Isidro Heredia MD Unavailable [phone] Tomas Hyman MD Primary Care Provider [phone] Reason for Visit * Treatment (Routine) - Closed Specialty Diagnoses / Procedures Referred By Lawrence shah Referred To Contact Infusion Therapy Nurse Diagnoses Rheumatoid arthritis(714.0) (HCC) Rheumatoid arthritis without rheumatoid factor, multiple sites (HCC) Procedures [place] INFLIXIMAB INJECTION [place] INJECTION TOCILIZUMAB 1 MG Isidro Heredia MD [address] [place] [address] [address] Referral ID Status Reason Start Date Expiration Date Visits Re quested Visits Authorized [id number] Closed 01/07/2015 01/08/2016 1 12 Encounter Details Date Type Department Care Team (Late st Contact Info) Description 12/14/2015 2:00 PM CDT - 12/14/2015 11:59 PM CDT Hospital Encounter [facility] Medical [facility] - Rheumatology [address] [place] [address] Isidro Heredia MD [address] [place] [address] Discharge Disposition: Home or Self [...] Foreman RN - 12/14/2015 2:43 PM CDT [place] Rheumatology Post Infusion instructions [...] through Sunday 9-5 call the office at [phone] After hours or on the weekend call the exchange at [phone] If you have had lab work done [...] 1 (one) tablet by mouth at bedtime Nqshhqnrrnf-Zcpzvtewt-K it C-Mn (GLUCOSAMINE CHONDR 1500 COMPLX PO) [...] - 12/14/2015 2:42 PM CDT JOSE Deng [id number] 12/14/2015 Diagnosis: Rheumatoid arthritis without rheumatoid factor, [...] st Contact Info) Description 06/03/2024 1:00 PM MEMBER SERVICE SPECIALIST Appointment [facility] - Rheumatology [address] [place] [address] [phone] 06/03/2024 2:00 PM MEMBER SERVICE SPECIALIST Office Visit [facility] - Rheumatology [address] [place] [address] [phone] Gloria Smith MD [address] [place] [phone] documented as of this encounter Visit Diagnoses [...] mL/hr documented in this encounter Care Teams Dinkey Engineer Relationship Specialty Start Date End Date Tomas Hyman MD [address] [facility] [address] [place] [address] PCP - General Family Medicine 12/31/13 05/09/18 Isidro Heredia MD Rheumatology 02/09/11 documented as of this encounter
--- OUTSIDE RECORDS SUMMARY | 2024-05-10 10:25 | XMS_ITS | Encounter Summary ---
Author Organization [facility] Address [address] [facility] [place] [address] Care Team Providers Care Cad Specialist Name Role Phone Isidro Heredia MD Unavailable [phone] Tomas Hyman MD Primary Care Provider [phone] Encounter Details Date Type Department Care Team (Late st Contact Info) Description 12/14/2015 Orders Only [facility] Medical [facility] - Rheumatology [address] [place] [address] [phone] Isidro Heredia MD [address] [place] [address] Rheumatoid arthritis of multiple sites with [...] Contact Info) Description 06/03/2024 1:00 PM MANAGER FINE Appointment [facility] - Rheumatology [address] [place] [address] [phone] 06/03/2024 2:00 PM MANAGER FINE Office Visit [facility] - Rheumatology [address] [place] [address] Gloria Smith MD [address] [place] [address] [phone] documented as of this encounter Procedures Procedure [...] PM CDT Narrative Resulting Agency Comment [facility] [address] [facility] ??Community Health [phone] Isidro Heredia MD LAB - HEMATOLOGY OR DERABLES [facility] INSURANCE BILL [address] [place] [address] * (ABNORMAL) COMPREHENSIVE METABOLIC PANEL (12/14/2015 2:44 [...] PM CDT Narrative Resulting Agency Comment [facility] [address] [facility] ??Community Health [id number] Isidro Heredia MD LAB - CHEMISTRY ORD ERABLES [facility] INSURANCE BILL [address] [place] [address] * (ABNORMAL) CBC W AUTO DIFFERENTIAL (12/14/2015 [...] PM CDT Narrative Resulting Agency Comment [facility] [address] [facility] ??Community Health [id number] Isidro Heredia MD LAB - HEMATOLOGY OR DERABLES [facility] INSURANCE BILL [address] [place] [address] documented in this encounter Visit Diagnoses Diagnosis Rheumatoid arthritis of multiple sites with negative rheumatoid factor (HCC)- Primary documented in this encounter Care Teams Cad Specialist Relationship Specialty Start Date End Date Tomas Hyman MD [address] [facility] [address] [place] [address] PCP - General Family Medicine 12/31/13 05/09/18 Isidro Heredia MD Rheumatology 02/09/11 documented as of this encounter
--- OUTSIDE RECORDS SUMMARY | 2024-05-10 10:25 | XMS_ITS | Encounter Summary ---
Author Organization [facility] Address [address] [place] [address] Care Team Providers Care Information Engineer Name Role Phone Isidro Heredia MD Unavailable [phone] Tomas Hyman MD Primary Care Provider [phone] Reason for Visit * Reason Comments Refill Request Encounter Details Date Type Department Care Team (Late Contact Info) Description 07/01/2015 Refill [facility] - Rheumatology [address] [place] [address] Isidro Heredia MD [address] [place] [address] Refill Request Social History Tobacco Use [...] Info) Description 06/03/2024 1:00 PM MENTAL HEALTH CASE MANAGER Appointment [facility] - Rheumatology [address] [place] [address] 06/03/2024 2:00 PM MENTAL HEALTH CASE MANAGER Office Visit [facility] Rheumatology [address] [place] [address] Gloria Smith MD [address] [place] [address] [address] documented as of this encounter Visit Diagnoses Not on filedocumented in this encounter Care Teams Information Engineer Relationship Specialty Start Date End Date Tomas Hyman MD [address] [place] [address] PCP - General Family Medicine 12/31/13 05/09/18 Isidro Heredia MD Rheumatology 02/09/11 documented as of this encounter
--- OUTSIDE RECORDS SUMMARY | 2024-05-10 10:25 | XMS_ITS | Encounter Summary ---
Author Organization [facility] Address [address] [facility] [place] [address] Care Team Providers Care Shipping Lead Person Name Role Phone Isidro Heredia MD Unavailable [phone] Tomas Hyman MD Primary Care Provider Reason for Visit * Reason Comments Rheumatoid Arthritis * Evaluate & Treat (Routine) - Closed Specialty Diagnoses / Procedures Referred By Lawrence t Referred To Contact Diagnoses Rheumatoid arthritis with rheumatoid factor, unspecified (HCC) Procedures MA OFFICE VISIT DURING HOURS Tomas Hyman MD [address] [place] [address] Isidro Heredia MD [address] [place] [address] Referral ID Status Reason Start Date Expiration Date Visits Re quested Visits Authorized [id number] Closed 02/24/2015 02/24/2016 6 6 Encounter Details Date Type Department Care Team (Late st Contact Info) Description 10/13/2015 3:45 PM CDT Office Visit [facility] Medical [facility] - Rheumatology [address] [place] [address] Isidro Heredia MD [address] [place] [address] Encounter for long-term (current) use of [...] 1 Tab by mouth once daily ??? Ypewodqckak-Kxxdlsdlk-Zyv C-Mn (GLUCOSAMINE CHONDR 1500 COMPLX PO) Take [...] st Contact Info) Description 06/03/2024 1:00 PM STEWARD/STEWARDESS RAILROAD DINING CAR Appointment [facility] - Rheumatology [address] [place] [address] [phone] 06/03/2024 2:00 PM STEWARD/STEWARDESS RAILROAD DINING CAR Office Visit [facility] - Rheumatology [address] [place] [address] Gloria Smith MD [address] [place] [address] [phone] documented as of this encounter Procedures Procedure [...] 6:21 PM CDT Narrative Resulting Agency Comment [facility] [address] ??[place] [id number] Isidro Heredia MD LAB - CHEMISTRY ORD ERABLES Performing Organization Address [facility] Co de Phone Number [facility] INSURANCE BILL [address] [place] [address] * SED RATE AUTO (ESR) (10/13/2015 3:30 PM CDT) Erythrocyte Sedimentation Rate Westergren 6 0 - 20 mm/hr [facility] INSURANCE BILL Blood specimen (specimen) BLOOD SPECIMEN / Unknown 10/13/2015 3:30 PM CDT 10/13/2015 6:21 PM CDT Narrative Resulting Agency Comment [facility] [address] ??[place] [id number] Isidro Heredia MD LAB - HEMATOLOGY OR DERABLES Performing Organization Address [facility] de Phone Number [facility] INSURANCE BILL [address] [place] [address] * TSH (10/13/2015 3:30 PM CDT) TSH 1.06 0.358 - 3.740 uIU/mL [facility] INSURANCE BILL Blood specimen (specimen) BLOOD SPECIMEN / Unknown 10/13/2015 3:30 PM CDT 10/13/2015 6:21 PM CDT Narrative Resulting Agency Comment [facility] [address] ??[place] [id number] Isidro Heredia MD LAB - CHEMISTRY ORD ERABLES Performing Organization Address [facility]/ZIP Co de Phone Number [facility] INSURANCE BILL [address] [place] [address] * (ABNORMAL) LIPID PROFILE W TCHOL/HDL (PO [...] 6:21 PM CDT Narrative Resulting Agency Comment [facility] Lab [address] [facility] ??[place] [id number] Isidro Heredia MD LAB - CHEMISTRY ORD ERABLES [facility] INSURANCE BILL [address] [place] [address] * (ABNORMAL) COMPREHENSIVE METABOLIC PANEL (10/13/2015 3:30 [...] 6:21 PM CDT Narrative Resulting Agency Comment [facility] Lab [address] ??[place] [id number] Isidro Heredia MD LAB - CHEMISTRY ORD ERABLES [facility] INSURANCE BILL [address] [place] [address] * (ABNORMAL) CBC W AUTO DIFFERENTIAL (10/13/2015 [...] 6:21 PM CDT Narrative Resulting Agency Comment [facility] Lab [address] [facility] ??[facility] [id number] Isidro Heredia MD LAB - HEMATOLOGY OR DERABLES [facility] INSURANCE BILL [address] [place] [address] documented in this encounter Visit Diagnoses Diagnosis [...] thyroid documented in this encounter Care Teams Shipping Lead Person Relationship Specialty Start Date End Date Tomas Hyman MD [address] [facility] [address] [place] [address] PCP - General Family Medicine 12/31/13 05/09/18 Isidro Heredia MD Rheumatology 02/09/11 documented as of this encounter
--- OUTSIDE RECORDS SUMMARY | 2024-05-10 10:25 | XMS_ITS | Encounter Summary ---
Author Organization [facility] Address [address] [place] [address] Care Team Providers Care Java Software Engineer Name Role Phone Isidro Heredia MD Unavailable [phone] Tomas Hyman MD Primary Care Provider [phone] Reason for Visit * Reason Comments Refill Request Encounter Details Date Type Department Care Team (Late Contact Info) Description 01/01/2016 Refill [facility] - Rheumatology [address] [place] [address] Ashwini Silverio, FISHER SCALLOP-[address] [address] Refill Request Social History Tobacco [...] (Late Contact Info) Description 06/03/2024 1:00 PM EXECUTIVE DIRECTOR GLOBAL BRAND MARKETING Appointment [facility] - Rheumatology [address] [place] [address] 06/03/2024 2:00 PM EXECUTIVE DIRECTOR GLOBAL BRAND MARKETING Office Visit [facility] Rheumatology [address] [place] [address] Gloria Smith MD [address] [place] [address] documented as of this encounter Visit Diagnoses Not on filedocumented in this encounter Care Teams Java Software Engineer Relationship Specialty Start Date End Date Tomas Hyman MD [address] [place] [address] PCP - General Family Medicine 12/31/13 05/09/18 Isidro Heredia MD Rheumatology 02/09/11 documented as of this encounter
--- OUTSIDE RECORDS SUMMARY | 2024-05-10 10:25 | XMS_ITS | Encounter Summary ---
Author Organization [facility] Address [address] [facility] [place] [address] Care Team Providers Care Manager Life Name Role Phone Isidro Heredia MD Unavailable Tomas Hyman MD Primary Care Provider [phone] Reason for Visit * Reason Onset Date Comments MEDICATION REFILL 04/05/2016 Encounter Details Date Type Department Care Team (Late Contact Info) Description 04/05/2016 Refill [facility] - Rheumatology [address] [place] [address] Isidro Heredia MD [address] [place] [address] MEDICATION REFILL Social History Tobacco Use [...] (Late Contact Info) Description 06/03/2024 1:00 PM PRODUCT SUPPORT REPRESENTATIVE Appointment [facility] - Rheumatology [address] [place] [address] 06/03/2024 2:00 PM PRODUCT SUPPORT REPRESENTATIVE Office Visit [facility] - Rheumatology [address] [place] [address] Gloria Smith MD [address] [place] [phone] documented as of this encounter Visit Diagnoses Diagnosis Rheumatoid arthritis of multiple 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 factor (HCC) Rheumatoid arthritis documented in this encounter Care Teams Manager Life Relationship Specialty Start Date End Date Tomas Hyman MD [address] [place] [address] PCP - General Family Medicine 12/31/13 05/09/18 Isidro Heredia MD Rheumatology 02/09/11 documented as of this encounter
--- OUTSIDE RECORDS SUMMARY | 2024-05-10 10:25 | XMS_ITS | Encounter Summary ---
Author Organization [facility] Address [address] [place] [address] Care Team Providers Care Stock Preparation Operator Name Role Phone Isidro Heredia MD Unavailable [phone] Tomas Hyman MD Primary Care Provider [phone] Encounter Details Date Type Department Care Team (Late st Contact Info) Description 06/14/2015 Orders Only [facility] Medical [facility] - Rheumatology [address] [place] [address] [phone] Isidro Heredia MD [address] [place] [address] Rheumatoid arthritis of multiple sites with [...] AM CSTQuick Note: Patient notified via mychart. CTOR OF VALUATION * Isidro Heredia MD - 06/20/2015 9:14 PM CSTQuick Note: Chol sl inc 202 mtx ok meron CTOR OF VALUATION documented in this encounter Plan of Treatment Upcoming Encounters Date Type Department Care Team (Late st Contact Info) Description 06/03/2024 1:00 PM DIRECTOR OF VALUATION Appointment [facility] - Rheumatology [address] [place] [address] [phone] 06/03/2024 2:00 PM DIRECTOR OF VALUATION Office Visit [facility] - Rheumatology [address] [place] [address] Gloria Smith MD [address] [place] [phone] documented as of this encounter Procedures Procedure Name Priority Date/Time Associated Diagnosis Comments LIPID PROFILE W TCHOL/HDL Routine 06/14/2015 3:00 PM DIRECTOR OF VALUATION Rheumatoid arthritis of multiple sites with negative rheumatoid factor (HCC) ERYTHROCYTE SEDIMENTATION RATE Routine 06/14/2015 3:00 PM DIRECTOR OF VALUATION Rheumatoid arthritis of multiple sites with negative rheumatoid factor (HCC) CBC W AUTO DIFFERENTIAL Routine 06/14/2015 3:00 PM DIRECTOR OF VALUATION Rheumatoid arthritis of multiple sites with negative rheumatoid factor (HCC) COMPREHENSIVE METABOLIC PANEL Routine 06/14/2015 3:00 PM DIRECTOR OF VALUATION Rheumatoid arthritis of multiple sites with negative rheumatoid factor (HCC) documented in this encounter Results * (ABNORMAL) LIPID PROFILE W TCHOL/HDL (PO REF LAB) (06/14/2015 3:00 PM DIRECTOR OF VALUATION) Cholesterol 202(H) <200 mg/dL [facility] INSURANCE BILL Triglycerides 321(H) <150 mg/dL [facility] INSURANCE BILL HDL Cholesterol 52 >40 mg/dL [facility] INSURANCE BILL VLDL Calculated 64(H) <=30 mg/dL [facility] INSURANCE BILL LDL Calculated 86 <130 mg/dL [facility] INSURANCE BILL Comment:LDL/HDL RATIO BLOOD ([facility]) 1.7 <5.0 Cholesterol/HDL Ratio 3.9 <4.5 [facility] INSURANCE BILL Blood specimen (specimen) BLOOD SPECIMEN / Unknown 06/14/2015 3:00 PM DIRECTOR OF VALUATION 06/14/2015 7:27 PM DIRECTOR OF VALUATION Narrative Resulting Agency Comment [facility] [address] ??[place] [phone] Isidro Heredia MD LAB - CHEMISTRY ORD ERABLES [facility] INSURANCE BILL * SED RATE WESTERGREN (06/14/2015 3:00 PM DIRECTOR OF VALUATION) Erythrocyte Sedimentation Rate Westergren 4 0 - 20 mm/hr [facility] INSURANCE BILL Blood specimen (specimen) BLOOD SPECIMEN / Unknown 06/14/2015 3:00 PM DIRECTOR OF VALUATION 06/14/2015 7:27 PM DIRECTOR OF VALUATION Narrative Resulting Agency Comment [facility] [address] ??[place]iy[place] [phone] Isidro Heredia MD LAB - HEMATOLOGY OR DERABLES [facility] INSURANCE BILL * (ABNORMAL) COMPREHENSIVE METABOLIC PANEL (06/14/2015 3:00 PM DIRECTOR OF VALUATION) Glucose 110(H) 74 - 106 mg/dL [facility] [...] BLOOD SPECIMEN / Unknown 06/14/2015 3:00 PM DIRECTOR OF VALUATION 06/14/2015 7:27 PM DIRECTOR OF VALUATION Narrative Resulting Agency Comment [facility] [address] [facility] ??[facility] [phone] Isidro Heredia MD LAB - CHEMISTRY ORD ERABLES [facility] INSURANCE BILL * (ABNORMAL) CBC W AUTO DIFFERENTIAL (06/14/2015 3:00 PM DIRECTOR OF VALUATION) WBC 7.5 4.4 - 10.7 x10E9/L [facility] [...] BLOOD SPECIMEN / Unknown 06/14/2015 3:00 PM DIRECTOR OF VALUATION 06/14/2015 7:27 PM DIRECTOR OF VALUATION Narrative Resulting Agency Comment [facility] [address] [facility] ??[place] [phone] Isidro Heredia MD LAB - HEMATOLOGY OR DERABLES [facility] INSURANCE BILL documented in this encounter Visit Diagnoses Diagnosis Rheumatoid arthritis of multiple sites with negative rheumatoid factor (HCC)- Primary documented in this encounter Care Teams Stock Preparation Operator Relationship Specialty Start Date End Date Tomas Hyman MD [address] [place] [address] PCP - General Family Medicine 12/31/13 05/09/18 Isidro Heredia MD Rheumatology 02/09/11 documented as of this encounter
--- OUTSIDE RECORDS SUMMARY | 2024-05-10 10:25 | XMS_ITS | Encounter Summary ---
Author Organization [facility] Address [address] [facility] [address] Care Team Providers Care Command And Control Name Role Phone Isidro Heredia MD Unavailable [phone] Tomas Hyman MD Primary Care Provider [phone] Reason for Visit * Treatment (Routine) - Closed Specialty Diagnoses / Procedures Referred By Lawrence shah Referred To Contact Infusion Therapy Nurse Diagnoses Rheumatoid arthritis without rheumatoid factor, multiple sites (HCC) Procedures DC INJECTION TOCILIZUMAB 1 MG Isidro Heredia MD [address] [place] [address] [address] Referral ID Status Reason Start Date Expiration Date Visits Re quested Visits Authorized [id number] Closed 12/16/2015 06/07/2016 1 6 Encounter Details Date Type Department Care Team (Late st Contact Info) Description 05/04/2016 1:11 PM MANAGER SOFTWARE DEVELOPMENT - 05/04/2016 11:59 PM MANAGER SOFTWARE DEVELOPMENT Hospital Encounter [facility] Medical [facility] - Rheumatology [address] [place] [address] Isidro Heredia MD [address] [place] [address] Discharge Disposition: Home or Self [...] Comments Blood Pressure 154/92 05/04/2016 1:27 PM MANAGER SOFTWARE DEVELOPMENT Pulse 96 05/04/2016 1:27 PM MANAGER SOFTWARE DEVELOPMENT Temperature 36.7 ??C (98 ??F) 05/04/2016 1:27 PM MANAGER SOFTWARE DEVELOPMENT Respiratory Rate 18 05/04/2016 1:27 PM MANAGER SOFTWARE DEVELOPMENT Oxygen Saturation - - Inhaled Oxygen Concentration - - Weight 117.9 kg (260 lb) 05/04/2016 1:27 PM MANAGER SOFTWARE DEVELOPMENT Height - - Body Mass Index 37.31 01/11/2016 3:12 PM CDT documented in this encounter Discharge Instructions * Discharge Instructions* Jody Sahu RN - 05/04/2016 1:40 PM MANAGER SOFTWARE DEVELOPMENT [place] [facility] Post Infusion instructions You have [...] through Sunday 9-5 call the office at [phone] After hours or on the weekend call the exchange at [phone] If you have had lab work done [...] Hospital as your provider. Jody Sahu RN GER SOFTWARE DEVELOPMENT documented in this encounter Medications at Time of Discharge Medication Sig Dispensed Refills Start Date End Date atorvastatin (LIPITOR) 40 MG tablet Take 1 (one) tablet by mouth at bedtime Bberxtnimst-Iqxcodjgf-S it C-Mn (GLUCOSAMINE CHONDR 1500 COMPLX PO) [...] - 05/04/2016 1:58 PM CST JOSE Deng [id number] 05/04/2016 Diagnosis: Rheumatoid arthritis without rheumatoid factor, [...] Next treatment? 4 weeks Jody Sahu RN GER SOFTWARE DEVELOPMENT documented in this encounter Plan of Treatment Upcoming Encounters Date Type Department Care Team (Late st Contact Info) Description 06/03/2024 1:00 PM MANAGER SOFTWARE DEVELOPMENT Appointment [facility] - Rheumatology [address] [place] [address] 06/03/2024 2:00 PM MANAGER SOFTWARE DEVELOPMENT Office Visit [facility] - Rheumatology [address] [place] [address] Gloria Smith MD [address] [place] [phone] documented as of this encounter Visit Diagnoses [...] 24hrs RT $ Given 05/04/2016 1:45 PM MANAGER SOFTWARE DEVELOPMENT 800 mg documented in this encounter Care Teams Command And Control Relationship Specialty Start Date End Date Tomas Hyman MD [address] [facility] [address] [place] [address] PCP - General Family Medicine 12/31/13 05/09/18 Isidro Heredia MD Rheumatology 02/09/11 documented as of this encounter
--- OUTSIDE RECORDS SUMMARY | 2024-05-10 10:25 | XMS_ITS | Encounter Summary ---
Author Organization [facility] Address [address] [facility] [place] [address] Care Team Providers Care Manager Systems Name Role Phone Isidro Heredia MD Unavailable [phone] Tomas Hyman MD Primary Care Provider Encounter Details Date Type Department Care Team (Late st Contact Info) Description 05/04/2016 Orders Only [facility] Medical [facility] - Rheumatology [address] [place] [address] [phone] Isidro Heredia MD [address] [place] [address] Rheumatoid arthritis of multiple sites with [...] sent via my chart regarding lab results MER * Isidro Heredia MD - 05/12/2016 6:12 PM CST Wbc 12.4 sl high mtx ok Chol very Good 129 meron MER documented in this encounter Plan of Treatment Upcoming Encounters Date Type Department Care Team (Late st Contact Info) Description 06/03/2024 1:00 PM SKIMMER Appointment [facility] - Rheumatology [address] [place] [address] 06/03/2024 2:00 PM SKIMMER Office Visit [facility] - Rheumatology [address] [place] [address] Gloria Smith MD [address] [place] [phone] documented as of this encounter Procedures Procedure Name Priority Date/Time Associated Diagnosis Comments LIPID PROFILE W TCHOL/HDL Routine 05/04/2016 1:30 AM SKIMMER Rheumatoid arthritis of multiple sites with negative rheumatoid factor (HCC) ERYTHROCYTE SEDIMENTATION RATE Routine 05/04/2016 1:30 AM SKIMMER Rheumatoid arthritis of multiple sites with negative rheumatoid factor (HCC) CBC W AUTO DIFFERENTIAL Routine 05/04/2016 1:30 AM SKIMMER Rheumatoid arthritis of multiple sites with negative rheumatoid factor (HCC) COMPREHENSIVE METABOLIC PANEL Routine 05/04/2016 1:30 AM SKIMMER Rheumatoid arthritis of multiple sites with negative rheumatoid factor (HCC) documented in this encounter Results * SED RATE WESTERGREN (05/04/2016 1:30 AM SKIMMER) Erythrocyte Sedimentation Rate Westergren 3 0 - 30 mm/hr [facility] INSURANCE BILL Blood BLOOD SPECIMEN / Unknown 05/04/2016 1:30 AM SKIMMER 05/04/2016 Narrative Resulting Agency Comment [facility] [address] ??[facility] [phone] Isidro Heredia MD LAB - HEMATOLOGY OR DERABLES [facility] INSURANCE BILL [address] [place] [address] * (ABNORMAL) LIPID PROFILE W TCHOL/HDL (PO REF LAB) (05/04/2016 1:30 AM SKIMMER) Cholesterol 129 100 - 199 mg/dL [facility] [...] BLOOD SPECIMEN / Unknown 05/04/2016 1:30 AM SKIMMER 05/04/2016 Narrative Resulting Agency Comment [facility] [address] ??[facility] [phone] Isidro Heredia MD LAB - CHEMISTRY ORD ERABLES [facility] INSURANCE BILL [address] [place] [address] * (ABNORMAL) COMPREHENSIVE METABOLIC PANEL (05/04/2016 1:30 AM SKIMMER) Glucose 97 65 - 99 mg/dL [facility] [...] BLOOD SPECIMEN / Unknown 05/04/2016 1:30 AM SKIMMER 05/04/2016 Narrative Resulting Agency Comment [facility] [address] ??[facility] [phone] Isidro Heredia MD LAB - CHEMISTRY ORD ERABLES [facility] INSURANCE BILL [address] [place] [address] * (ABNORMAL) CBC W AUTO DIFFERENTIAL (05/04/2016 1:30 AM SKIMMER) WBC 12.4(H) 3.4 - 10.8 x10E3/uL [facility] [...] BLOOD SPECIMEN / Unknown 05/04/2016 1:30 AM SKIMMER 05/04/2016 Narrative Resulting Agency Comment [facility] [address] ??[facility] [phone] Isidro Heredia MD LAB - HEMATOLOGY OR DERABLES [facility] INSURANCE BILL [address] [place] [address] documented in this encounter Visit Diagnoses Diagnosis Rheumatoid arthritis of multiple sites with negative rheumatoid factor (HCC)- Primary documented in this encounter Care Teams Manager Systems Relationship Specialty Start Date End Date Tomas Hyman MD [address] [facility] [address] [place] [address] PCP - General Family Medicine 12/31/13 05/09/18 Isidro Heredia MD Rheumatology 02/09/11 documented as of this encounter
--- OUTSIDE RECORDS SUMMARY | 2024-05-10 10:25 | XMS_ITS | Encounter Summary ---
Author Organization [facility] Health Address [address] [facility] [place] [address] Care Team Providers Care Senior Ruby Developer Name Role Phone Isidro Heredia MD Unavailable [phone] Tomas Hyman MD Primary Care Provider [phone] Reason for Visit * Treatment (Routine) - Closed Specialty Diagnoses / Procedures Referred By Lawrence shah Referred To Contact [place] [phone] [address] [facility] Pain Care [address] [place] [address] Referral ID Status Reason Start Date Expiration Date Visits Re quested Visits Authorized [id number] Closed 05/16/2016 11/12/2016 1 3 Encounter Details Date Type Department Care Team (Latest Contact Info) Description 05/16/2016 10:30 AM WAREHOUSE GENERAL LABORER - 05/16/2016 11:00 AM [facility] Hospital Encounter [facility] Pain Care [address] [place] [address] [place] [phone] [address] Discharge Disposition: Home or Self [...] 1 (one) tablet by mouth at bedtime Bivjmgrzncu-Ouaepffwp-N it C-Mn (GLUCOSAMINE CHONDR 1500 COMPLX PO) [...] Contact Info) Description 06/03/2024 1:00 PM WAREHOUSE GENERAL LABORER Appointment [facility] - Rheumatology [address] [place] [address] [phone] 06/03/2024 2:00 PM WAREHOUSE GENERAL LABORER Office Visit [facility] - Rheumatology [address] [place] [address] [phone] Gloria Smith MD [address] [place] [phone] documented as of this encounter Visit Diagnoses Not on filedocumented in this encounter Care Teams Senior Ruby Developer Relationship Specialty Start Date End Date Tomas Hyman MD [address] [facility] [address] [place] [address] PCP - General Family Medicine 12/31/13 05/09/18 Isidro Heredia MD Rheumatology 02/09/11 documented as of this encounter
--- OUTSIDE RECORDS SUMMARY | 2024-05-10 10:25 | XMS_ITS | Encounter Summary ---
Author Organization [facility] Address [address] [facility] [place] [address] Care Team Providers Care Farm Contractor Buyer Name Role Phone Isidro Heredia MD Unavailable [phone] Tomas Hyman MD Primary Care Provider [phone] Encounter Details Date Type Department Care Team (Late st Contact Info) Description 07/19/2015 Orders Only [facility] Medical [facility] - Rheumatology [address] [place] [address] [phone] Isidro Heredia MD [address] [place] [address] Rheumatoid arthritis of multiple sites with [...] st Contact Info) Description 06/03/2024 1:00 PM MOLDER BENCH Appointment [facility] - Rheumatology [address] [place] [address] [phone] 06/03/2024 2:00 PM MOLDER BENCH Office Visit [facility] - Rheumatology [address] [place] [address] Gloria Smith MD [address] [place] [phone] documented as of this encounter Procedures [...] [facility] INSURANCE BILL Comment:LDL/HDL RATIO BLOOD ([facility]) 1.8 <5.0 Cholesterol/HDL Ratio 4.2 <4.5 [facility] INSURANCE BILL Blood specimen (specimen) BLOOD SPECIMEN / Unknown 07/19/2015 4:30 PM CDT 07/19/2015 7:11 PM CDT Narrative Resulting Agency Comment [facility] [address] [facility] ??[place] [phone] Isidro Heredia MD LAB - CHEMISTRY ORD ERABLES [facility] INSURANCE BILL documented in this encounter Visit Diagnoses Diagnosis Rheumatoid arthritis of multiple sites with negative rheumatoid factor (HCC)- Primary documented in this encounter Care Teams Farm Contractor Buyer Relationship Specialty Start Date End Date Tomas Hyman MD [address] [place] [address] PCP - General Family Medicine 12/31/13 05/09/18 Isidro Heredia MD Rheumatology 02/09/11 documented as of this encounter
--- OUTSIDE RECORDS SUMMARY | 2024-05-10 10:25 | XMS_ITS | Encounter Summary ---
Author Organization [facility] Address [address] [facility] [place] [address] Care Team Providers Care Accounting Administrative Assistant Name Role Phone Isidro Heredia MD Unavailable [phone] Tomas Hyman MD Primary Care Provider [phone] Encounter Details Date Type Department Care Team (Late st Contact Info) Description 08/16/2015 Orders Only [facility] Medical [facility] - Rheumatology [address] [place] [address] [phone] Isidro Hreedia MD [address] [place] [address] Rheumatoid arthritis of multiple sites with [...] st Contact Info) Description 06/03/2024 1:00 PM DEPUTY FIRE CHIEF Appointment [facility] - Rheumatology [address] [place] [address] [phone] 06/03/2024 2:00 PM DEPUTY FIRE CHIEF Office Visit [facility] - Rheumatology [address] [place] [address] Gloria Smith MD [address] [place] [phone] documented as of this encounter Procedures [...] 7:43 PM CDT Narrative Resulting Agency Comment [facility] [address] [facility] ??Ziyad P[place]NY [phone] Isidro Heredia MD LAB - HEMATOLOGY OR [...] 7:43 PM CDT Narrative Resulting Agency Comment [facility] [address] [facility] ??[place]iyad [place] [phone] Isidro Heredia MD LAB - CHEMISTRY ORD [...] 7:43 PM CDT Narrative Resulting Agency Comment [facility] [address] [facility] ??[facility] [phone] Isidro Heredia MD LAB - HEMATOLOGY OR DERABLES [facility] INSURANCE BILL documented in this encounter Visit Diagnoses Diagnosis Rheumatoid arthritis of multiple sites with negative rheumatoid factor (HCC)- Primary documented in this encounter Care Teams Accounting Administrative Assistant Relationship Specialty Start Date End Date Tomas Hyman MD [address] [place] [address] PCP - General Family Medicine 12/31/13 05/09/18 Isidro Heredia MD Rheumatology 02/09/11 documented as of this encounter
--- OUTSIDE RECORDS SUMMARY | 2024-05-10 10:25 | XMS_ITS | Encounter Summary ---
Author Organization [facility] Address [address] [place] [address] Care Team Providers Care Patient Services Clerk Name Role Phone Isidro Heredia MD Unavailable Tomas Hyman MD Primary Care Provider Reason for Visit * Reason Comments Rheumatoid Arthritis Headache right side of head Shoulder Pain right woul like [place] isone injection * Evaluate & Treat (Routine) - Closed Specialty Diagnoses / Procedures Referred By Lawrence t Referred To Contact Diagnoses Rheumatoid arthritis, unspecified (HCC) Procedures [place] OFFICE VISIT DURING HOURS Tomas Hyman MD [address] [place] [address] Isidro Heredia MD [address] [place] [address] Referral ID Status Reason Start Date Expiration Date Visits Re quested Visits Authorized [id number] Closed 06/08/2015 06/07/2016 6 6 Encounter Details Date Type Department Care Team (Late st Contact Info) Description 11/16/2015 2:45 PM CDT Office Visit [facility] [employer] [facility] - Rheumatology [address] [place] [address] Isidro Heredia MD [address] [facility] [place] [place] [address] Chronic right-sided low back pain [...] 1 Tab by mouth once daily ??? Cqnrfwxmnke-Ordcptiqm-Jre C-Mn (GLUCOSAMINE CHONDR 1500 COMPLX PO) Take [...] Contact Info) Description 06/03/2024 1:00 PM LEAD TECHNICAL ARCHITECT Appointment [facility] - Rheumatology [address] [place], [place] [phone] 06/03/2024 2:00 PM LEAD TECHNICAL ARCHITECT Office Visit [facility] - Rheumatology [address] [place] [address] Gloria Smith MD [address] [place] [phone] documented as of this encounter Visit [...] r documented in this encounter Care Teams Patient Services Clerk Relationship Specialty Start Date End Date Tomas Hymna MD [address] [facility] [address] [place] [address] PCP - General Family Medicine 12/31/13 05/09/18 Isidro Heredia MD Rheumatology 02/09/11 documented as of this encounter
--- OUTSIDE RECORDS SUMMARY | 2024-05-10 10:25 | XMS_ITS | Encounter Summary ---
Author Organization [facility] Address [address] [facility] [address] Care Team Providers Care Stave Bolt Equalizer Name Role Phone Isidro Heredia MD Unavailable [phone] Tomas Hyman MD Primary Care Provider [phone] Reason for Visit * Treatment (Routine) - Closed Specialty Diagnoses / Procedures Referred By Lawrence shah Referred To Contact Infusion Therapy Nurse Diagnoses Rheumatoid arthritis without rheumatoid factor, multiple sites (HCC) Procedures DE INJECTION TOCILIZUMAB 1 MG Isidro Heredia MD [address] [place] [address] [phone] Referral ID Status Reason Start Date Expiration Date Visits Re quested Visits Authorized [id number] Closed 12/16/2015 06/07/2016 1 6 Encounter Details Date Type Department Care Team (Late st Contact Info) Description 01/11/2016 1:59 PM CDT - 01/11/2016 11:59 PM CDT Hospital Encounter [facility] Medical [facility] - Rheumatology [address] [place] [address] Isidro Heredia MD [address] [place] [address] Discharge Disposition: Home or Self [...] Sahu RN - 01/11/2016 2:16 PM CDT [place] Rheumatology Post Infusion instructions [...] Sunday through 01-02 call the office at [phone] After hours or on the weekend call the exchange at [phone] If you have had lab work done [...] 1 (one) tablet by mouth at bedtime Ippgcbgxvgj-Ahxuwdxah-H it C-Mn (GLUCOSAMINE CHONDR 1500 COMPLX PO) [...] - 01/11/2016 2:20 PM CDT JOSE Deng [id number] 01/11/2016 Diagnosis: Rheumatoid arthritis without rheumatoid factor, multiple sites [M06.09]. Pt denies symptoms of infection or antibiotic use, no open wounds, or recent surgery, or plans for surgery in the next couple of weeks. Pt is aware that we use the 0-10 pain scale to assess discomfort. 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 desk editor pt signs consent for treatment for this [...] st Contact Info) Description 06/03/2024 1:00 PM DRAINAGE INSPECTOR Appointment [facility] - Rheumatology [address] [place] [address] 06/03/2024 2:00 PM DRAINAGE INSPECTOR Office Visit [facility] - Rheumatology [address] [place] [address] Gloria Smith MD [address] [place] [phone] documented as of this encounter Visit Diagnoses [...] mL/hr documented in this encounter Care Teams Stave Bolt Equalizer Relationship Specialty Start Date End Date Tomas Hyman MD [address] [facility] [address] [place] [address] PCP - General Family Medicine 12/31/13 05/09/18 Isidro Heredia MD Rheumatology 02/09/11 documented as of this encounter
--- OUTSIDE RECORDS SUMMARY | 2024-05-10 10:25 | XMS_ITS | Encounter Summary ---
Author Organization [facility] Address [address] [facility] [place] [address] Care Team Providers Care Environmental Aide Name Role Phone Isidro Heredia MD Unavailable [phone] Tomas Hyman MD Primary Care Provider [phone] Reason for Visit * Reason Comments Refill Request Encounter Details Date Type Department Care Team (Late Contact Info) Description 12/14/2015 Refill [facility] - Rheumatology [address] [place] [address] Isidro Heredia MD [address] [place] [address] Refill Request Social History Tobacco Use [...] (Late Contact Info) Description 06/03/2024 1:00 PM CONTRACTOR BROOMCORN THRESHING Appointment [facility] - Rheumatology [address] [place] [address] 06/03/2024 2:00 PM CONTRACTOR BROOMCORN THRESHING Office Visit [facility] Rheumatology [address] [place] [address] Gloria Smith MD [address] [place], [place] [address], [place] [address] documented as of this encounter Visit Diagnoses Not on filedocumented in this encounter Care Teams Environmental Aide Relationship Specialty Start Date End Date Tomas Hyman MD [address] [place] [address] PCP - General Family Medicine 12/31/13 05/09/18 Isidro Heredia MD Rheumatology 02/09/11 documented as of this encounter
--- OUTSIDE RECORDS SUMMARY | 2024-05-10 10:25 | XMS_ITS | Encounter Summary ---
Author Organization [facility] Address [address] [place] [address] Care Team Providers Care Machine Setter Sheet Metal Name Role Phone Isidro Heredia MD Unavailable [phone] Tomas Hyman MD Primary Care Provider [phone] Reason for Visit * Reason Onset Date Comments MEDICATION REFILL 11/15/2015 Encounter Details Date Type Department Care Team (Late Contact Info) Description 11/15/2015 Refill [facility] - Rheumatology [address] [place] [address] Isidro Heredia MD [address] [place] [address] MEDICATION REFILL Social History Tobacco Use [...] (Late Contact Info) Description 06/03/2024 1:00 PM CHILD PSYCHOLOGY TEACHER Appointment [facility] - Rheumatology [address] [place] [address] 06/03/2024 2:00 PM CHILD PSYCHOLOGY TEACHER Office Visit [facility] - Rheumatology [address] [place] [address] Gloria Smith MD [address] [place] [address] documented as of this encounter Visit Diagnoses Not on filedocumented in this encounter Care Teams Machine Setter Sheet Metal Relationship Specialty Start Date End Date Tomas Hyman MD [address] [place] [address] PCP - General Family Medicine 12/31/13 05/09/18 Isidro Heredia MD Rheumatology 02/09/11 documented as of this encounter
--- OUTSIDE RECORDS SUMMARY | 2024-05-10 10:25 | XMS_ITS | Encounter Summary ---
Author Organization [facility] Address [address] [facility] [place] [address] Care Team Providers Care Bobbin Winder Tender Name Role Phone Isidro Heredia MD Unavailable [phone] Tomas Hyman MD Primary Care Provider [phone] Reason for Visit * Reason Comments Refill Request Encounter Details Date Type Department Care Team (Late Contact Info) Description 09/24/2015 Refill [facility] - Rheumatology [address] [place] [address] Isidro Heredia MD [address] [place] [address] Refill Request Social History Tobacco Use [...] (Late Contact Info) Description 06/03/2024 1:00 PM ELEMENTARY EDUCATION TEACHER Appointment [facility] - Rheumatology [address] [place] [address] 06/03/2024 2:00 PM ELEMENTARY EDUCATION TEACHER Office Visit [facility] Rheumatology [address] [place] [address] Gloria Smith MD [address] [place], [place] [address] [address] documented as of this encounter Visit Diagnoses Not on filedocumented in this encounter Care Teams Bobbin Winder Tender Relationship Specialty Start Date End Date Tomas Hyman MD [address] [place] [address] PCP - General Family Medicine 12/31/13 05/09/18 Isidro Heredia MD Rheumatology 02/09/11 documented as of this encounter
--- OUTSIDE RECORDS SUMMARY | 2024-05-10 10:25 | XMS_ITS | Encounter Summary ---
Author Organization [facility] Address [address] [facility] [place] [address] Care Team Providers Care Corner Brace Block Machine Operator Name Role Phone Isidro Heredia MD Unavailable [phone] Tomas Hyman MD Primary Care Provider [phone] Reason for Visit * Treatment (Routine) - Closed Specialty Diagnoses / Procedures Referred By Lawrence shah Referred To Contact [place] [phone] [address] [facility] Pain Care [address] [place] [address] Referral ID Status Reason Start Date Expiration Date Visits Re quested Visits Authorized [id number] Closed 09/07/2015 03/05/2016 1 1 Encounter Details Date Type Department Care Team (Latest Contact Info) Description 09/07/2015 9:51 AM CDT - 09/07/2015 9:53 AM CDT Hospital Encounter [facility] Pain Care [address] [place] [address] [place] [address] [address] Discharge Disposition: Home or Self [...] Sig Dispensed Refills Start Date End Date Lusobivgnsf-Pkrfkrurh-R it C-Mn (GLUCOSAMINE CHONDR 1500 COMPLX PO) [...] st Contact Info) Description 06/03/2024 1:00 PM TECHNICAL DELIVERY MANAGER Appointment [facility] - Rheumatology [address] [place] [address] [phone] 06/03/2024 2:00 PM TECHNICAL DELIVERY MANAGER Office Visit [facility] - Rheumatology [address] [place] [address] [phone] Gloria Smith MD [address] [place] [phone] documented as of this encounter Visit Diagnoses Not on filedocumented in this encounter Care Teams Corner Brace Block Machine Operator Relationship Specialty Start Date End Date Tomas Hyman MD [address] [facility] [address] [place] [address] PCP - General Family Medicine 12/31/13 05/09/18 Isidro Heredia MD Rheumatology 02/09/11 documented as of this encounter
--- OUTSIDE RECORDS SUMMARY | 2024-05-10 10:25 | XMS_ITS | Encounter Summary ---
Author Organization [facility] Address [address] [facility] [place] [address] Care Team Providers Care Out Of School Hours Care Worker Name Role Phone Isidro Heredia MD Unavailable [phone] Tomas Hyman MD Primary Care Provider [phone] Reason for Visit * Reason Comments Rheumatoid Arthritis Encounter Details Date Type Department Care Team (Late st Contact Info) Description 08/16/2015 5:15 PM CDT Office Visit [facility] - Rheumatology [address] [place] [address] Isidro Heredia MD [address] [place] [address] Rheumatoid arthritis of multiple sites with [...] 1 Tab by mouth once daily ??? Kyymmyrcanw-Ycqsevxcp-Obt C-Mn (GLUCOSAMINE CHONDR 1500 COMPLX PO) Take [...] TRIAMCINOLON ACETONID NOS 10 MG INJ ??? RI DRAIN/INJECT LARGE JOINT/BURSA ??? oxyCODONE-acetaminophen (PERCOCET) 5-325 [...] Contact Info) Description 06/03/2024 1:00 PM JOCKEY AGENT Appointment [facility] - Rheumatology [address] [place] [address] [phone] 06/03/2024 2:00 PM JOCKEY AGENT Office Visit [facility] - Rheumatology [address] [place] [address] [phone] Gloria Smith MD [address] [place] [phone] documented as of this encounter Visit Diagnoses [...] Shoulder documented in this encounter Care Teams Out Of School Hours Care Worker Relationship Specialty Start Date End Date Tomas Hyman MD [address] [facility] [address] [place] [address] PCP - General Family Medicine 12/31/13 05/09/18 Isidro Heredia MD Rheumatology 02/09/11 documented as of this encounter
--- OUTSIDE RECORDS SUMMARY | 2024-05-10 10:25 | XMS_ITS | Encounter Summary ---
Author Organization [facility] Address [address] [facility] [place] [address] Care Team Providers Care Research And Development Engineer Name Role Phone Isidro Heredia MD Unavailable [phone] Tomas Hyman MD Primary Care Provider [phone] Reason for Visit * Treatment (Routine) - Closed Specialty Diagnoses / Procedures Referred By Lawrence shah Referred To Contact Infusion Therapy Nurse Diagnoses Rheumatoid arthritis(714.0) (HCC) Rheumatoid arthritis without rheumatoid factor, multiple sites (HCC) Procedures [place] INFLIXIMAB INJECTION [place] INJECTION TOCILIZUMAB 1 MG Isidro Heredia MD [address] [place] [address] [address] Referral ID Status Reason Start Date Expiration Date Visits Re quested Visits Authorized [id number] Closed 01/07/2015 01/08/2016 1 12 Encounter Details Date Type Department Care Team (Late st Contact Info) Description 10/13/2015 3:20 PM CDT - 10/13/2015 11:59 PM CDT Hospital Encounter [facility] Medical [facility] - Rheumatology [address] [place] [address] Isidro Heredia MD [address] [place] [address] Discharge Disposition: Home or Self [...] Sahu RN - 10/13/2015 4:06 PM CDT [place] Rheumatology Post Infusion instructions [...] through Sunday 9-5 call the office at [phone] After hours or on the weekend call the exchange at [phone] If you have had lab work done [...] Sig Dispensed Refills Start Date End Date Gjpsobmlssp-Mpelogiov-Q it C-Mn (GLUCOSAMINE CHONDR 1500 COMPLX PO) [...] - 10/13/2015 4:34 PM CDT JOSE Deng [id number] 10/13/2015 Diagnosis: Rheumatoid arthritis without rheumatoid factor, [...] st Contact Info) Description 06/03/2024 1:00 PM SPECTROGRAPHER Appointment [facility] - Rheumatology [address] [place] [address] 06/03/2024 2:00 PM SPECTROGRAPHER Office Visit [facility] - Rheumatology [address] [place] [address] Gloria Smith MD [address] [place] [phone] documented as of this encounter Visit Diagnoses [...] mL/hr documented in this encounter Care Teams Research And Development Engineer Relationship Specialty Start Date End Date Tomas Hyman MD [address] [facility] [address] [place] [address] PCP - General Family Medicine 12/31/13 05/09/18 Isidro Heredia MD Rheumatology 02/09/11 documented as of this encounter
--- OUTSIDE RECORDS SUMMARY | 2024-05-10 10:25 | XMS_ITS | Encounter Summary ---
Author Organization [facility] Address [address] [facility] [place] [address] Care Team Providers Care Local Bulk Driver Name Role Phone Isidro Heredia MD Unavailable [phone] Tomas Hyman MD Primary Care Provider [phone] Reason for Visit * Treatment (Routine) - Closed Specialty Diagnoses / Procedures Referred By Lawrence shah Referred To Contact Infusion Therapy Nurse Diagnoses Rheumatoid arthritis(714.0) (HCC) Rheumatoid arthritis without rheumatoid factor, multiple sites (HCC) Procedures [place] INFLIXIMAB INJECTION [place] INJECTION TOCILIZUMAB 1 MG Isidro Heredia MD [address] [place] [address] [address] Referral ID Status Reason Start Date Expiration Date Visits Re quested Visits Authorized [id number] Closed 01/07/2015 01/08/2016 1 12 Encounter Details Date Type Department Care Team (Late st Contact Info) Description 11/16/2015 1:50 PM CDT - 11/16/2015 11:59 PM CDT Hospital Encounter [facility] Medical [facility] - Rheumatology [address] [place] [address] Isidro Heredia MD [address] [place] [address] Discharge Disposition: Home or Self [...] Sahu RN - 11/16/2015 2:13 PM CDT [place] Rheumatology Post Infusion instructions [...] Sunday through Sunday- call the office at [phone] After hours or on the weekend call the exchange at [phone] If you have had lab work done [...] 1 (one) tablet by mouth at bedtime Zswjtvgphbl-Guumnwvtl-K it C-Mn (GLUCOSAMINE CHONDR 1500 COMPLX PO) [...] - 11/16/2015 2:32 PM CDT JOSE Deng [id number] 11/16/2015 Diagnosis: Rheumatoid arthritis without rheumatoid factor, [...] st Contact Info) Description 06/03/2024 1:00 PM EXCELSIOR MACHINE FEEDER Appointment [facility] - Rheumatology [address] [place] [address] 06/03/2024 2:00 PM EXCELSIOR MACHINE FEEDER Office Visit [facility] - Rheumatology [address] [place] [address] Gloria Smith MD [address] [place] [phone] documented as of this encounter Visit [...] mL/hr documented in this encounter Care Teams Local Bulk Driver Relationship Specialty Start Date End Date Tomas Hyman MD [address] [facility] [address] [place] [address] PCP - General Family Medicine 12/31/13 05/09/18 Isidro Heredia MD Rheumatology 02/09/11 documented as of this encounter
--- OUTSIDE RECORDS SUMMARY | 2024-05-10 10:25 | XMS_ITS | Encounter Summary ---
Author Organization [facility] Address [address] [facility] [place] [address] Care Team Providers Care Vocational Instructor Name Role Phone Isidro Heredia MD Unavailable [phone] Tomas Hyman MD Primary Care Provider [phone] Reason for Visit * Treatment (Routine) - Closed Specialty Diagnoses / Procedures Referred By Lawrence shah Referred To Contact Infusion Therapy Nurse Diagnoses Rheumatoid arthritis(714.0) (HCC) Rheumatoid arthritis without rheumatoid factor, multiple sites (HCC) Procedures [place] INFLIXIMAB INJECTION [place] INJECTION TOCILIZUMAB 1 MG Isidro Heredia MD [address] [place] [address] [address] Referral ID Status Reason Start Date Expiration Date Visits Re quested Visits Authorized [id number] Closed 01/07/2015 01/08/2016 1 12 Encounter Details Date Type Department Care Team (Late st Contact Info) Description 09/13/2015 3:13 PM CDT - 09/13/2015 11:59 PM CDT Hospital Encounter [facility] Medical [facility] - Rheumatology [address] [place] [address] Isidro Heredia MD [address] [place] [address] Discharge Disposition: Home or Self [...] Sahu RN - 09/13/2015 3:44 PM CDT [place] Rheumatology Post Infusion instructions [...] through Sunday 9-5 call the office at [phone] After hours or on the weekend call the exchange at [phone] If you have had lab work done [...] Sig Dispensed Refills Start Date End Date Surzkdojjgk-Qkgxsgrik-J it C-Mn (GLUCOSAMINE CHONDR 1500 COMPLX PO) [...] - 09/13/2015 4:01 PM CDT JOSE Deng [id number] 09/13/2015 Diagnosis: Rheumatoid arthritis without rheumatoid factor, multiple sites [M06.09]. Pt denies symptoms of infection or antibiotic use, no open wounds, or recent surgery, or plans for surgery in the next couple of weeks. Pt is aware that we use the 0-10 pain scale to assess discomfort. 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 it desktop support technician pt signs consent for treatment for this [...] st Contact Info) Description 06/03/2024 1:00 PM FRICTION WELDING MACHINE OPERATOR Appointment [facility] - Rheumatology [address] [place] [address] 06/03/2024 2:00 PM FRICTION WELDING MACHINE OPERATOR Office Visit [facility] - Rheumatology [address] [place] [address] Gloria Smith MD [address] [place] [phone] documented as of this encounter Visit Diagnoses [...] mL/hr documented in this encounter Care Teams Vocational Instructor Relationship Specialty Start Date End Date Tomas Hyman MD [address] [facility] [address] [place] [address] PCP - General Family Medicine 12/31/13 05/09/18 Isidro Heredia MD Rheumatology 02/09/11 documented as of this encounter
--- OUTSIDE RECORDS SUMMARY | 2024-05-10 10:25 | XMS_ITS | Encounter Summary ---
Author Organization [facility] Address [address] [facility] [address] Care Team Providers Care Nurses' Association Counselor Name Role Phone Isidro Heredia MD Unavailable [phone] Tomas Hyman MD Primary Care Provider [phone] Reason for Visit * Treatment (Routine) - Closed Specialty Diagnoses / Procedures Referred By Lawrence shah Referred To Contact Infusion Therapy Nurse Diagnoses Rheumatoid arthritis without rheumatoid factor, multiple sites (HCC) Procedures [place] INJECTION TOCILIZUMAB 1 MG Isidro Heredia MD [address] [place] [address] [address] Referral ID Status Reason Start Date Expiration Date Visits Re quested Visits Authorized [id number] Closed 12/16/2015 06/07/2016 1 6 Encounter Details Date Type Department Care Team (Late st Contact Info) Description 04/06/2016 1:57 PM FOREIGN LEGAL CONSULTANT - 04/06/2016 11:59 PM FOREIGN LEGAL CONSULTANT Hospital Encounter [facility] Medical [facility] - Rheumatology [address] [place] [address] Isidro Heredia MD [address] [place] [address] Discharge Disposition: Home or Self [...] Comments Blood Pressure 145/74 04/06/2016 3:05 PM FOREIGN LEGAL CONSULTANT Pulse 92 04/06/2016 3:05 PM FOREIGN LEGAL CONSULTANT Temperature 37 ??C (98.6 ??F) 04/06/2016 2:24 PM FOREIGN LEGAL CONSULTANT Respiratory Rate 16 04/06/2016 2:24 PM FOREIGN LEGAL CONSULTANT Oxygen Saturation - - Inhaled Oxygen Concentration - - Weight - - Height - - Body Mass Index - - documented in this encounter Discharge Instructions * Discharge Instructions* Jody Sahu RN - 04/06/2016 2:39 PM FOREIGN LEGAL CONSULTANT [place] Rheumatology Post Infusion instructions You have [...] through Sunday 9-5 call the office at [phone] After hours or on the weekend call the exchange at [phone] If you have had lab work done [...] Hospital as your provider. Jody Sahu RN IGN LEGAL CONSULTANT documented in this encounter Medications at Time of Discharge Medication Sig Dispensed Refills Start Date End Date atorvastatin (LIPITOR) 40 MG tablet Take 1 (one) tablet by mouth at bedtime Otphonvyjqd-Skrjdnlng-X it C-Mn (GLUCOSAMINE CHONDR 1500 COMPLX PO) [...] - 04/06/2016 3:04 PM CST JOSE Deng [id number] 04/06/2016 Diagnosis: Rheumatoid arthritis without rheumatoid factor, [...] Next treatment? 4 weeks Jody Sahu RN IGN LEGAL CONSULTANT documented in this encounter Plan of Treatment Upcoming Encounters Date Type Department Care Team (Late st Contact Info) Description 06/03/2024 1:00 PM FOREIGN LEGAL CONSULTANT Appointment [facility] - Rheumatology [address] [place] [address] 06/03/2024 2:00 PM FOREIGN LEGAL CONSULTANT Office Visit [facility] - Rheumatology [address] [place] [address] Gloria Smith MD [address] [place] [phone] documented as of this encounter Visit [...] 24hrs RT $ Given 04/06/2016 2:50 PM FOREIGN LEGAL CONSULTANT 800 mg documented in this encounter Care Teams Nurses' Association Counselor Relationship Specialty Start Date End Date Tomas Hyman MD [address] [place] [address] PCP - General Family Medicine 12/31/13 05/09/18 Isidro Heredia MD Rheumatology 02/09/11 documented as of this encounter
--- OUTSIDE RECORDS SUMMARY | 2024-05-10 10:25 | XMS_ITS | Encounter Summary ---
Author Organization [facility] Address [address] [place] [address] Care Team Providers Care Store Lead Name Role Phone Isidro Heredia MD Unavailable [phone] Tomas Hyman MD Primary Care Provider Encounter Details Date Type Department Care Team (Latest Contact Info) Description 05/16/2016 11:01 AM COBOL ENGINEER - 05/16/2016 11:59 PM COBOL ENGINEER Hospital Encounter [facility] Pain Care [address] [place] [address] [place] [address] [place] [phone] Discharge Disposition: Home or Self Care Social [...] Comments Blood Pressure 143/87 05/16/2016 11:34 AM COBOL ENGINEER Pulse 98 05/16/2016 11:34 AM COBOL ENGINEER Temperature - - Respiratory Rate 16 05/16/2016 11:34 AM COBOL ENGINEER Oxygen Saturation 98% 05/16/2016 11:34 AM COBOL ENGINEER Inhaled Oxygen Concentration - - Weight - - Height - - Body Mass Index - - documented in this encounter Discharge Instructions * Patient Instructions* Nena Pond RN - 05/16/2016 11:13 AM COBOL ENGINEER [facility] Pain Discharge Instructions [...] headache, or any other problems, please call [phone] or after hours callDr. Mirza at [phone] and tell them your physician's name. The exchange will alert the physician client liaison. If sedation is given: No sedation given. For Your Next Visit: No additional instructions. Other Instructions: May remove band-aid in 12 Hours. Return in one week for KIMBER[place] #2 L ENGINEER documented in this encounter Medications at Time of Discharge Medication Sig Dispensed Refills Start Date End Date atorvastatin (LIPITOR) 40 MG tablet Take 1 (one) tablet by mouth at bedtime Grecqoyplca-Sazriojrr-W it C-Mn (GLUCOSAMINE CHONDR 1500 COMPLX PO) [...] Was reviewed today and no changes noted. L ENGINEER documented in this encounter Procedure Notes * [...] Coumadin, Plavix or other blood thinners. Responsible seasonal delivery driver is not needed due to [...] Follow Up: 1 week Alejandro Mirza MD L ENGINEER documented in this encounter Plan of Treatment Upcoming Encounters Date Type Department Care Team (Late st Contact Info) Description 06/03/2024 1:00 PM COBOL ENGINEER Appointment [facility] - Rheumatology [address] [place] [address] 06/03/2024 2:00 PM COBOL ENGINEER Office Visit [facility] - Rheumatology [address] [place] [address] Gloria Smith MD [address] [place] [phone] documented as of this encounter Procedures Procedure Name Priority Date/Time Associated Diagnosis Comments PAIN MANAGEMENT PROCEDURE TIME Routine 05/16/2016 11:33 AM COBOL ENGINEER Radiculopathy of lumbosacral region Low back pain with sciatica, sciatica laterality unspecified, unspecified back pain laterality, unspecified chronicity documented in this encounter Results * PAIN MANAGEMENT PROCEDURE TIME (05/16/2016 11:33 AM COBOL ENGINEER) Anatomical Region Laterality Modality X-Ray Angiograph y Narrative 05/16/2016 11:39 AM COBOL ENGINEER Alejandro Mirza MD ? 05/16/2016 11:39 AM [...] Coumadin, Plavix or other blood thinners. ??Responsible seasonal delivery driver is not needed due to [...] Admin. by Other Provider 05/16/2016 11:30 AM COBOL ENGINEER 80 mg Back documented in this encounter Care Teams Store Lead Relationship Specialty Start Date End Date Tomas Hyman MD [address] [facility] [address] [place] [address] PCP - General Family Medicine 12/31/13 05/09/18 Isidro Heredia MD Rheumatology 02/09/11 documented as of this encounter
--- OUTSIDE RECORDS SUMMARY | 2024-05-10 10:25 | XMS_ITS | Encounter Summary ---
Author Organization [facility] Address [address] [place] [address] Care Team Providers Care Lock Assembler Name Role Phone Isidro Heredia MD Unavailable [phone] Tomas Hyman MD Primary Care Provider [phone] Reason for Visit * Reason Onset Date Comments MEDICATION REFILL 03/02/2016 Encounter Details Date Type Department Care Team (Late Contact Info) Description 03/02/2016 Refill [facility] - Rheumatology [address] [place] [address] Isidro Heredia MD [address] [place] [address] MEDICATION REFILL Social History Tobacco Use [...] (Late Contact Info) Description 06/03/2024 1:00 PM PROTOTYPE ENGINEER MANAGER Appointment [facility] - Rheumatology [address] [place] [address] 06/03/2024 2:00 PM PROTOTYPE ENGINEER MANAGER Office Visit [facility] - Rheumatology [address] [place] [address] Gloria Smith MD [address] [place] [address] documented as of this encounter Visit Diagnoses Not on filedocumented in this encounter Care Teams Lock Assembler Relationship Specialty Start Date End Date Tomas Hyman MD [address] [place] [address] PCP - General Family Medicine 12/31/13 05/09/18 Isidro Heredia MD Rheumatology 02/09/11 documented as of this encounter
--- OUTSIDE RECORDS SUMMARY | 2024-05-10 10:25 | XMS_ITS | Encounter Summary ---
Author Organization [facility] Address [address] [facility] [place] [address] Care Team Providers Care V Belt Mold Assembler And Curer Name Role Phone Isidro Heredia MD Unavailable [phone] Tomas Hyman MD Primary Care Provider [phone] Reason for Visit * Reason Comments Refill Request Encounter Details Date Type Department Care Team (Late Contact Info) Description 09/13/2015 Refill [facility] - Rheumatology [address] [place] [address] Isidro Heredia MD [address] [place] [address] Refill Request Social History Tobacco Use [...] Description 06/03/2024 1:00 PM DIRECTOR SPECIALTY Appointment [facility] - Rheumatology [address] [place] [address] 06/03/2024 2:00 PM DIRECTOR SPECIALTY Office Visit [facility] Rheumatology [address] [place] [address] Gloria Smith MD [address] [place] [address] [address] documented as of this encounter Visit Diagnoses Not on filedocumented in this encounter Care Teams V Belt Mold Assembler And Curer Relationship Specialty Start Date End Date Tomas Hyman MD [address] [place] [address] PCP - General Family Medicine 12/31/13 05/09/18 Isidro Heredia MD Rheumatology 02/09/11 documented as of this encounter
--- OUTSIDE RECORDS SUMMARY | 2024-05-10 10:25 | XMS_ITS | Encounter Summary ---
Author Organization [facility] Address [address] [facility] [place] [address] Care Team Providers Care Coin Machine Service Repairer Name Role Phone Isidro Heredia MD Unavailable Tomas Hyman MD Primary Care Provider [phone] Reason for Visit * Reason Comments Pain Back chronic * Evaluate & Treat (Routine) - Closed Specialty Diagnoses / Procedures Referred By Lawrence shah Referred To Contact Diagnoses Rheumatoid arthritis, unspecified (HCC) Procedures [place] OFFICE VISIT DURING HOURS Tomas Hyman MD [address] [place] [address] Isidro Heredia MD [address] [place] [address] Referral ID Status Reason Start Date Expiration Date Visits Re quested Visits Authorized [id number] Closed 06/08/2015 06/07/2016 6 6 Encounter Details Date Type Department Care Team (Late st Contact Info) Description 01/11/2016 3:15 PM CDT Office Visit [facility] - Rheumatology [address] [place] [address] Isidro Heredia MD [address] [place] [address] Rheumatoid arthritis of multiple sites with [...] 1 Tab by mouth once daily ??? Clnvfqoadjg-Azvzlfdjv-Amd C-Mn (GLUCOSAMINE CHONDR 1500 COMPLX PO) Take [...] Contact Info) Description 06/03/2024 1:00 PM RETAIL AND RESTAURANT ASSOCIATE Appointment [facility] - Rheumatology [address] [place] [address] 06/03/2024 2:00 PM RETAIL AND RESTAURANT ASSOCIATE Office Visit [facility] - Rheumatology [address] [place] [address] Gloria Smith MD [address] [place] [phone] documented as of this encounter Visit Diagnoses Diagnosis Rheumatoid arthritis of multiple sites with negative rheumatoid factor (HCC)- Primary Abnormal LFTs Other abnormal blood chemistry Chronic right-sided low back pain with right-sided sciatica Chronic pain syndrome Rheumatoid arthritis of multiple 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 factor (HCC) Rheumatoid arthritis documented in this encounter Care Teams Coin Machine Service Repairer Relationship Specialty Start Date End Date Tomas Hyman MD [address] [facility] [address] [place] [address] PCP - General Family Medicine 12/31/13 05/09/18 Isidro Heredia MD Rheumatology 02/09/11 documented as of this encounter
--- OUTSIDE RECORDS SUMMARY | 2024-05-10 10:25 | XMS_ITS | Encounter Summary ---
Author Organization [facility] Address [address] [facility] [place] [address] Care Team Providers Care Court Crier Name Role Phone Isidro Heredia MD Unavailable [phone] Tomas Hyman MD Primary Care Provider Reason for Visit * Reason Comments Rheumatoid Arthritis * Evaluate & Treat (Routine) - Closed Specialty Diagnoses / Procedures Referred By Lawrnece shah Referred To Contact Diagnoses Rheumatoid arthritis with rheumatoid factor, unspecified (HCC) Procedures [place] OFFICE VISIT DURING HOURS Tomas Hyman MD [address] [place] [address] Isidro Heredia MD [address] [place] [address] Referral ID Status Reason Start Date Expiration Date Visits Re quested Visits Authorized [id number] Closed 02/24/2015 02/24/2016 6 6 Encounter Details Date Type Department Care Team (Late st Contact Info) Description 09/13/2015 4:45 PM CDT Office Visit [facility] - Rheumatology [address] [place] [address] Isidro Heredia MD [address] [place] [address] Abnormal LFTs (Primary Dx); Rheumatoid arthritis [...] 1 Tab by mouth once daily ??? Pxiwlbfogvz-Vwlhbboea-Sqh C-Mn (GLUCOSAMINE CHONDR 1500 COMPLX PO) Take [...] Contact Info) Description 06/03/2024 1:00 PM LICENSED NURSING ASSISTANT Appointment [facility] - Rheumatology [address] [place] [address] 06/03/2024 2:00 PM LICENSED NURSING ASSISTANT Office Visit [facility] Medical [facility] - Rheumatology [address] [place] [address] Gloria Smith MD [address] [place] [phone] documented as of this encounter Visit Diagnoses Diagnosis Abnormal LFTs- Primary Other abnormal blood chemistry Rheumatoid arthritis of multiple sites with negative rheumatoid factor (HCC) Chronic pain syndrome Right lumbar radiculopathy Thoracic or lumbosacral neuritis or radiculitis, unspecified 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
--- OUTSIDE RECORDS SUMMARY | 2024-05-10 10:25 | XMS_ITS | Encounter Summary ---
Author Organization [facility] Address [address] [place] [address] Care Team Providers Care Statistical Financial Analyst Name Role Phone Isidro Heredia MD Unavailable [phone] Tomas Hyman MD Primary Care Provider [phone] Reason for Visit * Reason Comments Refill Request Encounter Details Date Type Department Care Team (Late Contact Info) Description 06/17/2015 Refill [facility] - Rheumatology [address] [place] [address] Isidro Heredia MD [address] [place] [address] Refill Request Social History Tobacco Use [...] (Late Contact Info) Description 06/03/2024 1:00 PM CUPROUS CHLORIDE OPERATOR Appointment [facility] - Rheumatology [address] [place] [address] 06/03/2024 2:00 PM CUPROUS CHLORIDE OPERATOR Office Visit [facility] Rheumatology [address] [place] [address] Gloria Smith MD [address] [place] [address] [address] documented as of this encounter Visit Diagnoses Not on filedocumented in this encounter Care Teams Statistical Financial Analyst Relationship Specialty Start Date End Date Tomas Hyman MD [address] [place] [address] PCP - General Family Medicine 12/31/13 05/09/18 Isidro Heredia MD Rheumatology 02/09/11 documented as of this encounter
--- OUTSIDE RECORDS SUMMARY | 2024-05-10 10:25 | XMS_ITS | Encounter Summary ---
Author Organization [facility] Address [address] [facility] [place] [address] Care Team Providers Care Material Dispatcher Name Role Phone Isidro Heredia MD Unavailable [phone] Tomas Hyman MD Primary Care Provider [phone] Encounter Details Date Type Department Care Team (Late st Contact Info) Description 01/11/2016 Orders Only [facility] - Rheumatology [address] [place] [address] [phone] Isidro Heredia MD [address] [place] [address] Rheumatoid arthritis of multiple sites with [...] st Contact Info) Description 06/03/2024 1:00 PM ANIMAL CONTROL SPECIALIST Appointment [facility] - Rheumatology [address] [place] [address] [phone] 06/03/2024 2:00 PM ANIMAL CONTROL SPECIALIST Office Visit [facility] - Rheumatology [address] [place] [address] Gloria Smith MD [address] [place] [address] documented as of this encounter Procedures [...] PM CDT Narrative Resulting Agency Comment [facility] [address] ??[facility] [phone] Isidro Heredia MD LAB - CHEMISTRY ORD [facility] Performing Organization Address City/State/[facility] Co de Phone Number [facility] INSURANCE BILL [address] [place] [address] documented in this encounter Visit Diagnoses Diagnosis Rheumatoid arthritis of multiple sites with negative rheumatoid factor (HCC)- Primary documented in this encounter Care Teams Material Dispatcher Relationship Specialty Start Date End Date Tomas Hyman MD [address] [place] [address] PCP - General Family Medicine 12/31/13 05/09/18 Isidro Heredia MD Rheumatology 02/09/11 documented as of this encounter
--- OUTSIDE RECORDS SUMMARY | 2024-05-10 10:25 | XMS_ITS | Encounter Summary ---
Author Organization [facility] Address [address] [facility] [place] [address] Care Team Providers Care Dust Box Tender Name Role Phone Isidro Heredia MD Unavailable [phone] Tomas Hyman MD Primary Care Provider [phone] Reason for Visit * Reason Onset Date Comments MEDICATION REFILL 12/13/2015 Encounter Details Date Type Department Care Team (Late Contact Info) Description 12/13/2015 Refill [facility] - Rheumatology [address] [place] [address] Isidro Heredia MD [address] [place] [address] MEDICATION REFILL Social History Tobacco Use [...] (Late Contact Info) Description 06/03/2024 1:00 PM CANDY MAKER HELPER Appointment [facility] - Rheumatology [address] [place] [address] 06/03/2024 2:00 PM CANDY MAKER HELPER Office Visit [facility] - Rheumatology [address] [place] [address] Gloria Smith MD [address] [place] [address] documented as of this encounter Visit Diagnoses Diagnosis Rheumatoid arthritis of multiple 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 factor (HCC)- Primary Rheumatoid arthritis documented in this encounter Care Teams Dust Box Tender Relationship Specialty Start Date End Date Tomas Hyman MD [address] [facility] [address] [place] [address] PCP - General Family Medicine 12/31/13 05/09/18 Isidro Heredia MD Rheumatology 02/09/11 documented as of this encounter
--- OUTSIDE RECORDS SUMMARY | 2024-05-10 10:26 | XMS_ITS | Encounter Summary ---
Author Organization [facility] Address [address] [place] [address] Care Team Providers Care Heater Mechanic Name Role Phone Hitesh Solis MD Unavailable [phone] Tomas Hyman MD Primary Care Provider Reason for Visit * Reason Comments Rheumatoid Arthritis * Evaluate & Treat (Routine) - Closed Specialty Diagnoses / Procedures Referred By Lawrence t Referred To Contact Diagnoses Rheumatoid arthritis with rheumatoid factor, unspecified (HCC) Procedures CT OFFICE VISIT DURING HOURS Tomas Hyman MD [address] [place] [address] Hitesh Solis MD [address] [place] [address] Referral ID Status Reason Start Date Expiration Date Visits Re quested Visits Authorized [id number] Closed 02/24/2015 02/24/2016 6 6 Encounter Details Date Type Department Care Team (Late st Contact Info) Description 04/07/2015 3:30 PM MECHANICAL PRODUCT DESIGN ENGINEER Office Visit [facility] - Rheumatology [address] [place] [address] Hitesh Solis MD [address] [place] [address] Rheumatoid arthritis of multiple sites without [...] Comments Blood Pressure 120/88 04/07/2015 3:41 PM MECHANICAL PRODUCT DESIGN ENGINEER Pulse 108 04/07/2015 3:41 PM MECHANICAL PRODUCT DESIGN ENGINEER Temperature - - Respiratory Rate - - Oxygen Saturation - - Inhaled Oxygen Concentration - - Weight 117 kg (258 lb) 04/07/2015 3:41 PM MECHANICAL PRODUCT DESIGN ENGINEER Height - - Body Mass Index 37.02 04/07/2015 3:10 PM MECHANICAL PRODUCT DESIGN ENGINEER documented in this encounter Progress Notes * Yamileth Rodríguez MA - 04/12/2015 11:22 AM CSTQuick Note: Patient was given results through my chart message ANICAL PRODUCT DESIGN ENGINEER * Hitesh Solis MD - 04/11/2015 10:26 PM CSTQuick Note: Wbc sl inc [address] bs 125 sl inc lfts ok Resume mtx meron ANICAL PRODUCT DESIGN ENGINEER * Hitesh Solis MD - 04/07/2015 4:16 [...] PO) Take by mouth once daily. ??? Zuokdtrctfl-Habopmyvp-Urc C-Mn (GLUCOSAMINE CHONDR 1500 COMPLX PO) Take [...] C-REACTIVE PROTEIN ??? SED RATE WESTERGREN ??? CT DRAIN/INJECT LARGE JOINT/BURSA ??? oxyCODONE-acetaminophen (PERCOCET) 5-325 [...] Follow up in office in 4 weeks ANICAL PRODUCT DESIGN ENGINEER documented in this encounter Miscellaneous Notes * Addendum Note - Hitesh Solis MD - 04/13/2015 6:19 PM CSTAddended by: HITESH SOLIS on: 04/13/2015 06:19 PM Modules accepted: Orders ANICAL PRODUCT DESIGN ENGINEER documented in this encounter Plan of Treatment Upcoming Encounters Date Type Department Care Team (Late st Contact Info) Description 06/03/2024 1:00 PM MECHANICAL PRODUCT DESIGN ENGINEER Appointment [facility] - Rheumatology [address] [place] [address] 06/03/2024 2:00 PM MECHANICAL PRODUCT DESIGN ENGINEER Office Visit [facility] - Rheumatology [address] [place] [address] Gloria Smith MD [address] [place] [phone] documented as of this encounter Procedures Procedure Name Priority Date/Time Associated Diagnosis Comments C-REACTIVE PROTEIN Routine 04/07/2015 4: 30 PM MECHANICAL PRODUCT DESIGN ENGINEER Rheumatoid arthritis of multiple 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 factor (HCC) ERYTHROCYTE SEDIMENTATION RATE Routine 04/07/2015 4:30 PM MECHANICAL PRODUCT DESIGN ENGINEER Rheumatoid arthritis of multiple 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 factor (HCC) CBC W AUTO DIFFERENTIAL Routine 04/07/2015 4:30 PM MECHANICAL PRODUCT DESIGN ENGINEER Rheumatoid arthritis of multiple 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 factor (HCC) COMPREHENSIVE METABOLIC PANEL Routine 04/07/2015 4:30 PM MECHANICAL PRODUCT DESIGN ENGINEER Rheumatoid arthritis of multiple 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 factor (HCC) documented in this encounter Results * SED RATE WESTERGREN (04/07/2015 4:30 PM MECHANICAL PRODUCT DESIGN ENGINEER) Erythrocyte Sedimentation Rate Westergren 6 0 - 20 mm/hr [facility] INSURANCE BILL Blood specimen (specimen) BLOOD SPECIMEN / Unknown 04/07/2015 4:30 PM MECHANICAL PRODUCT DESIGN ENGINEER 04/07/2015 7:24 PM MECHANICAL PRODUCT DESIGN ENGINEER Narrative Resulting Agency Comment [facility] [address] [address] ??[place] [phone] Hitesh Solis MD LAB - HEMATOLOGY OR DERABLES [facility] INSURANCE BILL * C-REACTIVE PROTEIN (04/07/2015 4:30 PM MECHANICAL PRODUCT DESIGN ENGINEER) C-Reactive Protein <0.29 <0.30 mg/dL [facility] INSURANCE BILL Blood specimen (specimen) BLOOD SPECIMEN / Unknown 04/07/2015 4:30 PM MECHANICAL PRODUCT DESIGN ENGINEER 04/07/2015 7:24 PM MECHANICAL PRODUCT DESIGN ENGINEER Narrative Resulting Agency Comment [facility] [address] ??[place] [id number] Hitesh Solis MD LAB - CHEMISTRY ORD ERABLES [facility] INSURANCE BILL * (ABNORMAL) COMPREHENSIVE METABOLIC PANEL (04/07/2015 4:30 PM MECHANICAL PRODUCT DESIGN ENGINEER) Glucose 125(H) 74 - 106 mg/dL [facility] [...] BLOOD SPECIMEN / Unknown 04/07/2015 4:30 PM MECHANICAL PRODUCT DESIGN ENGINEER 04/07/2015 7:24 PM MECHANICAL PRODUCT DESIGN ENGINEER Narrative Resulting Agency Comment [facility] [address] [facility] ??[place] [id number] Hitesh Solis MD LAB - CHEMISTRY ORD ERABLES [facility] INSURANCE BILL * (ABNORMAL) CBC W AUTO DIFFERENTIAL (04/07/2015 4:30 PM MECHANICAL PRODUCT DESIGN ENGINEER) WBC 11.6(H) 4.4 - 10.7 x10E9/L [facility] [...] BLOOD SPECIMEN / Unknown 04/07/2015 4:30 PM MECHANICAL PRODUCT DESIGN ENGINEER 04/07/2015 7:24 PM MECHANICAL PRODUCT DESIGN ENGINEER Narrative Resulting Agency Comment [facility] [address] [facility] ??[facility] [phone] Hitesh Solis MD LAB - HEMATOLOGY OR [...] r documented in this encounter Care Teams Heater Mechanic Relationship Specialty Start Date End Date Tomas Hyman MD [address] [facility] [address] [place] [address] PCP - General Family Medicine 12/31/13 05/09/18 Hitesh Solis MD Rheumatology 02/09/11 documented as of this encounter
--- OUTSIDE RECORDS SUMMARY | 2024-05-10 10:26 | XMS_ITS | Encounter Summary ---
Author Organization [facility] Address [address] [place] [address] Care Team Providers Care Dyno Technician Name Role Phone Isidro Heredia MD Unavailable [phone] Tomas Hyman MD Primary Care Provider [phone] Reason for Visit * Treatment (Routine) - Closed Specialty Diagnoses / Procedures Referred By Lawrence shah Referred To Contact [place] [address] [address] [facility] Pain Care [address] [place] [address] Referral ID Status Reason Start Date Expiration Date Visits Re quested Visits Authorized [id number] Closed 12/21/2014 06/19/2015 1 6 Encounter Details Date Type Department Care Team (Latest Contact Info) Description 12/21/2014 9:19 AM CDT Hospital Encounter [facility] Pain Care [address] [place] [address] [place] [address] [address] Discharge Disposition: Home or Self [...] Sig Dispensed Refills Start Date End Date Ztpxdezsldt-Clnienlmr-O it C-Mn (GLUCOSAMINE CHONDR 1500 COMPLX PO) [...] st Contact Info) Description 06/03/2024 1:00 PM HAZMAT TANKER DRIVER Appointment [facility] - Rheumatology [address] [place] [address] [phone] 06/03/2024 2:00 PM HAZMAT TANKER DRIVER Office Visit [facility] - Rheumatology [address] [place] [address] [phone] Gloria Smith MD [address] [place] [phone] documented as of this encounter Visit Diagnoses Not on filedocumented in this encounter Care Teams Dyno Technician Relationship Specialty Start Date End Date Tomas Hyman MD [address] [place] [address] [place] [address] PCP - General Family Medicine 12/31/13 05/09/18 Isidro Heredia MD Rheumatology 02/09/11 documented as of this encounter
--- OUTSIDE RECORDS SUMMARY | 2024-05-10 10:26 | XMS_ITS | Encounter Summary ---
Author Organization [facility] Address [address] [facility] [place] [address] Care Team Providers Care Customer Quality Specialist Name Role Phone Hitesh Solis MD Unavailable [phone] Tomas Hyman MD Primary Care Provider Reason for Visit * Reason Comments Rheumatoid Arthritis Shoulder Pain right, would liek co rtisone injection * Evaluate & Treat (Routine) - Closed Specialty Diagnoses / Procedures Referred By Contac t Referred To Contact Diagnoses Rheumatoid arthritis(714.0) (HCC) Procedures [place] OFFICE/OUTPT VISIT,EST,Tomas Gupta MD [address] [place] [address] Hitesh Solis MD [address] [place] [address] Referral ID Status Reason Start Date Expiration Date Visits Re quested Visits Authorized [id number] Closed 09/09/2014 03/08/2015 5 5 Encounter Details Date Type Department Care Team (Late st Contact Info) Description 01/07/2015 3:00 PM CDT Office Visit [facility] [employer] [facility] - Rheumatology [address] [place] [address] Hitesh Solis MD [address] [facility] [address] Rheumatoid arthritis(714.0) (HCC) (Primary Dx); [...] PO) Take by mouth once daily. ??? Ghodjkxqlhx-Fheczfhma-Fgo C-Mn (GLUCOSAMINE CHONDR 1500 COMPLX PO) Take [...] METABOLIC PANEL ??? SED RATE WESTERGREN ??? TN DRAIN/INJECT LARGE JOINT/BURSA ??? oxyCODONE-acetaminophen (PERCOCET) 5-325 [...] st Contact Info) Description 06/03/2024 1:00 PM EXPLOSIVES DETONATOR Appointment [facility] - Rheumatology [address] [place] [address] [phone] 06/03/2024 2:00 PM EXPLOSIVES DETONATOR Office Visit [facility] - Rheumatology [address] [place] [address] Gloria Smith MD [address] [place] [address] [phone] documented as of this encounter Procedures Procedure Name Priority Date/Time Associated Diagnosis Comments ERYTHROCYTE SEDIMENTATION RATE Routine 01/07/2015 3:40 PM CDT Rheumatoid arthritis(714.0) ([facility]) CBC W AUTO DIFFERENTIAL Routine 01/07/2015 3:40 PM CDT Rheumatoid arthritis(714.0) ([facility]) COMPREHENSIVE METABOLIC PANEL Routine 01/07/2015 3:40 PM CDT Rheumatoid arthritis(714.0) ([facility]) documented in this encounter Results * SED RATE WESTERGREN (01/07/2015 3:40 PM CDT) Erythrocyte Sedimentation Rate Westergren 4 0 - 20 mm/hr [facility] INSURANCE BILL Blood specimen (specimen) BLOOD SPECIMEN / Unknown 01/07/2015 3:40 PM CDT 01/07/2015 6:19 PM CDT Narrative Resulting Agency Comment [facility] [address] [facility] [place] [phone] Hitesh Solis MD LAB - HEMATOLOGY OR [...] 6:19 PM CDT Narrative Resulting Agency Comment [facility] [address] [facility] ??[facility] [id number] Hitesh Solis MD LAB - CHEMISTRY ORD [...] 6:19 PM CDT Narrative Resulting Agency Comment [facility] [address] [facility] ??[place] [id number] Hitesh Solis MD LAB - HEMATOLOGY OR DERABLES [facility] INSURANCE BILL documented in this encounter Visit Diagnoses Diagnosis Rheumatoid arthritis(714.0) ([facility])- Primary Rheumatoid arthritis Chronic pain syndrome Right lumbar radiculopathy Thoracic or lumbosacral neuritis or radiculitis, unspecified Triceps tendonitis Other enthesopathy of elbow region documented in this encounter Administered Medications Administered Medications Medication Order MAR Action Action Date Dose Rate Site Triamcinolone Acetonide Intraarticular Given 01/07/2015 2 mL See comments documented in this encounter Care Teams Customer Quality Specialist Relationship Specialty Start Date End Date Tomas Hyman MD [address] [facility] [address] [place] [address] PCP - General Family Medicine 12/31/13 05/09/18 Hitesh Solis MD Rheumatology 02/09/11 documented as of this encounter
--- OUTSIDE RECORDS SUMMARY | 2024-05-10 10:26 | XMS_ITS | Encounter Summary ---
Author Organization [facility] Address [address] [place] [address] Care Team Providers Care Narrative Writer Name Role Phone Isidro Heredia MD Unavailable [phone] Tomas Hyman MD Primary Care Provider [phone] Reason for Visit * Reason Comments Refill Request Encounter Details Date Type Department Care Team (Late Contact Info) Description 04/26/2015 Refill [facility] - Rheumatology [address] [place] [address] Isidro Heredia MD [address] [place] [address] Refill Request Social History Tobacco Use [...] Contact Info) Description 06/03/2024 1:00 PM MANAGER INTERN Appointment [facility] - Rheumatology [address] [place] [address] 06/03/2024 2:00 PM MANAGER INTERN Office Visit [facility] Rheumatology [address] [place] [address] Gloria Smith MD [address] [place] [address] [address] documented as of this encounter Visit Diagnoses Not on filedocumented in this encounter Care Teams Narrative Writer Relationship Specialty Start Date End Date Tomas Hyman MD [address] [place] [address] PCP - General Family Medicine 12/31/13 05/09/18 Isidro Heredia MD Rheumatology 02/09/11 documented as of this encounter
--- OUTSIDE RECORDS SUMMARY | 2024-05-10 10:26 | XMS_ITS | Encounter Summary ---
Author Organization [facility] Address [address] [place] [address] Care Team Providers Care Assembler Deck And Hull Name Role Phone Isidro Heredia MD Unavailable [phone] Tomas Hyman MD Primary Care Provider [phone] Reason for Visit * Treatment (Routine) - Closed Specialty Diagnoses / Procedures Referred By Lawrence shah Referred To Contact Infusion Therapy Nurse Diagnoses Rheumatoid arthritis(714.0) (HCC) Rheumatoid arthritis without rheumatoid factor, multiple sites (HCC) Procedures NM INFLIXIMAB INJECTION NM INJECTION TOCILIZUMAB 1 MG Isidro Heredia MD [address] [place] [address] [address] Referral ID Status Reason Start Date Expiration Date Visits Re quested Visits Authorized [id number] Closed 01/07/2015 01/08/2016 1 12 Encounter Details Date Type Department Care Team (Late st Contact Info) Description 05/17/2015 2:40 PM POURER METAL - 05/17/2015 11:59 PM POURER METAL Hospital Encounter [facility] Medical [facility] - Rheumatology [address] [place] [address] Isidro Heredia MD [address] [place] [address] Discharge Disposition: Home or Self [...] Comments Blood Pressure 177/83 05/17/2015 3:35 PM POURER METAL Pulse 85 05/17/2015 3:35 PM POURER METAL Temperature 36.8 ??C (98.2 ??F) 05/17/2015 3:12 PM CS T Respiratory Rate 16 05/17/2015 3:12 PM POURER METAL Oxygen Saturation - - Inhaled Oxygen Concentration - - Weight 115.8 kg (255 lb 6.4 oz) 05/17/2015 3:12 PM POURER METAL Height - - Body Mass Index 36.65 04/07/2015 3:10 PM POURER METAL documented in this encounter Discharge Instructions * Discharge Instructions* Jody Sahu RN - 05/17/2015 3:17 PM POURER METAL [place] [facility] Post Infusion instructions You have [...] through Sunday 9-5 call the office at [phone] After hours or on the weekend call the exchange at [phone] If you have had lab work done [...] Center as your provider. Jody Sahu RN ER METAL documented in this encounter Medications at Time of Discharge Medication Sig Dispensed Refills Start Date End Date Jmeacbrlbbc-Vthzmywna-X it C-Mn (GLUCOSAMINE CHONDR 1500 COMPLX PO) [...] 05/17/2015 3:33 PM CST JOSE Chalino Deng [id number] 05/17/2015 Diagnosis: Rheumatoid arthritis without rheumatoid factor, multiple sites [M06.09]. Pt denies symptoms of infection or antibiotic use, no open wounds, or recent surgery, or plans for surgery in the next couple of weeks. Pt is aware that we use the 0-10 pain scale to assess discomfort. 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 hotel front desk clerk pt signs consent for [...] Next treatment? 4 weeks Jody Sahu RN ER METAL documented in this encounter Plan of Treatment Upcoming Encounters Date Type Department Care Team (Late st Contact Info) Description 06/03/2024 1:00 PM POURER METAL Appointment [facility] - Rheumatology [address] [place] [address] 06/03/2024 2:00 PM POURER METAL Office Visit [facility] - Rheumatology [address] [place] [address] Gloria Smith MD [address] [place] [phone] documented as of this encounter Visit Diagnoses [...] 24hrs RT $ Given 05/17/2015 3:20 PM POURER METAL 800 mg 140 mL/hr documented in this encounter Care Teams Assembler Deck And Hull Relationship Specialty Start Date End Date Tomas Hyman MD [address] [facility] [address] [place] [address] PCP - General Family Medicine 12/31/13 05/09/18 Isidro Heredia MD Rheumatology 02/09/11 documented as of this encounter
--- OUTSIDE RECORDS SUMMARY | 2024-05-10 10:26 | XMS_ITS | Encounter Summary ---
Author Organization [facility] Address [address] [place] [address] Care Team Providers Care Tie Fastener Name Role Phone Isidro Heredia MD Unavailable [phone] Tomas Hyman MD Primary Care Provider [phone] Encounter Details Date Type Department Care Team (Latest Contact Info) Description 12/29/2014 9:05 AM CDT - 12/29/2014 11:59 PM CDT Hospital Encounter [facility] Pain Care [address] [place] [address] [place] [address] [place] [address] Discharge Disposition: Home or Self Care Social [...] Mckinney RN - 12/29/2014 9:11 AM CDT [facility] Procedure Center Pain Discharge Instructions Selective [...] or any other problems, please call [phone] or after hours callDr. Mirza at [phone] and tell them your physician's name. The exchange will alert the physician automotive parts person. If sedation is given: No sedation given. For Your Next Visit: No additional instructions. Other Instructions: May remove band-aid in 12 Hours. Return in 1 week KIMBERLEY#3. RN Signature: Date: documented in this encounter Medications at Time of Discharge Medication Sig Dispensed Refills Start Date End Date Okpsckygslb-Gbvudbsqa-S it C-Mn (GLUCOSAMINE CHONDR 1500 COMPLX PO) [...] Coumidin, Plavix or other blood thinners. Responsible pile driver operator is not needed due to [...] Contact Info) Description 06/03/2024 1:00 PM CATTLE STICKER Appointment [facility] - Rheumatology [address] [place] [address] 06/03/2024 2:00 PM CATTLE STICKER Office Visit [facility] - Rheumatology [address] [place] [address] Gloria Smith MD [address] [place] [phone] documented as of this encounter Procedures [...] Coumidin, Plavix or other blood thinners. ??Responsible pile driver operator is not needed due to [...] Back documented in this encounter Care Teams Tie Fastener Relationship Specialty Start Date End Date Tomas Hyman MD [address] [facility] [address] [place] [address] PCP - General Family Medicine 12/31/13 05/09/18 Isidro Heredia MD Rheumatology 02/09/11 documented as of this encounter
--- OUTSIDE RECORDS SUMMARY | 2024-05-10 10:26 | XMS_ITS | Encounter Summary ---
Author Organization [facility] Address [address] [facility] [place] [address] Care Team Providers Care Record Clerk Salesperson Name Role Phone Isidro Heredia MD Unavailable [phone] Tomas Hyman MD Primary Care Provider [phone] Reason for Visit * Reason Comments Rheumatoid Arthritis * Evaluate & Treat (Routine) - Closed Specialty Diagnoses / Procedures Referred By Lawrence t Referred To Contact Diagnoses Rheumatoid arthritis(714.0) ([facility]) Procedures [place] OFFICE/OUTPT VISIT,EST,JULITO I Tomas Hyman MD [address] [place] [address] Isidro Heredia MD [address] [place] [address] Referral ID Status Reason Start Date Expiration Date Visits Re quested Visits Authorized [id number] Closed 09/09/2014 03/08/2015 5 5 Encounter Details Date Type Department Care Team (Late st Contact Info) Description 03/04/2015 2:45 PM QUALITY ASSURANCE INTERN Office Visit [facility] Medical [facility] - Rheumatology [address] [place] [address] Isidro Heredia MD [address] [place] [address] Rheumatoid arthritis(714.0) (HCC) (Primary Dx); Chronic [...] Comments Blood Pressure 133/88 03/04/2015 2:05 PM QUALITY ASSURANCE INTERN Pulse 103 03/04/2015 2:05 PM QUALITY ASSURANCE INTERN Temperature - - Respiratory Rate - - Oxygen Saturation - - Inhaled Oxygen Concentration - - Weight 116.1 kg (256 lb) 03/04/2015 2:05 PM QUALITY ASSURANCE INTERN Height - - Body Mass Index 36.73 02/04/2015 2:14 PM CDT documented in this encounter Progress Notes * Yamileth Rodríguez MA - 03/08/2015 12:08 PM CSTQuick Note: Message sent via my chart regarding lab results ITY ASSURANCE INTERN * Isidro Heredia MD - 03/08/2015 7:26 AM CSTQuick Note: lfts inc sgot and sgpt hold mtx Chol high 262 Trig high 461 meron ITY ASSURANCE INTERN * Isidro Heredia MD - 03/04/2015 3:48 [...] PO) Take by mouth once daily. ??? Udgoodfvlcc-Tzjvpyrso-Wjx C-Mn (GLUCOSAMINE CHONDR 1500 COMPLX PO) Take [...] Follow up in office in 4 weeks ITY ASSURANCE INTERN documented in this encounter Plan of Treatment Upcoming Encounters Date Type Department Care Team (Late st Contact Info) Description 06/03/2024 1:00 PM QUALITY ASSURANCE INTERN Appointment [facility] - Rheumatology [address] [place] [address] 06/03/2024 2:00 PM QUALITY ASSURANCE INTERN Office Visit [facility] - Rheumatology [address] [place] [address] Gloria Smith MD [address] [place] [phone] documented as of this encounter Procedures Procedure Name Priority Date/Time Associated Diagnosis Comments LIPID PROFILE W TCHOL/HDL Routine 03/04/2015 2:00 PM QUALITY ASSURANCE INTERN Rheumatoid arthritis(714.0) ([facility]) ERYTHROCYTE SEDIMENTATION RATE Routine 03/04/2015 2:00 PM QUALITY ASSURANCE INTERN Rheumatoid arthritis(714.0) ([facility]) CBC W AUTO DIFFERENTIAL Routine 03/04/2015 2:00 PM QUALITY ASSURANCE INTERN Rheumatoid arthritis(714.0) ([facility]) COMPREHENSIVE METABOLIC PANEL Routine 03/04/2015 2:00 PM QUALITY ASSURANCE INTERN Rheumatoid arthritis(714.0) ([facility]) documented in this encounter Results * (ABNORMAL) LIPID PROFILE W TCHOL/HDL (PO REF LAB) (03/04/2015 2:00 PM QUALITY ASSURANCE INTERN) Cholesterol 262(H) <200 mg/dL [facility] INSURANCE BILL [...] ordering a Direct LDL. LDL/HDL RATIO BLOOD ([facility]) ?<5.0 Unable to calculate LDL due to elevated Triglycerides, please consider ordering a Direct LDL. Cholesterol/HDL Ratio 5.3(H) <4.5 [facility] INSURANCE BILL Blood specimen (specimen) BLOOD SPECIMEN / Unknown 03/04/2015 2:00 PM QUALITY ASSURANCE INTERN 03/04/2015 6:11 PM QUALITY ASSURANCE INTERN Narrative Resulting Agency Comment [facility] [address] ??[place] [phone] Isidro Heredia MD LAB - CHEMISTRY ORD ERABLES [facility] INSURANCE BILL * SED RATE WESTERGREN (03/04/2015 2:00 PM QUALITY ASSURANCE INTERN) Erythrocyte Sedimentation Rate Westergren 7 0 - 20 mm/hr [facility] INSURANCE BILL Blood specimen (specimen) BLOOD SPECIMEN / Unknown 03/04/2015 2:00 PM QUALITY ASSURANCE INTERN 03/04/2015 6:11 PM QUALITY ASSURANCE INTERN Narrative Resulting Agency Comment [facility] [address] ??[place] [phone] Isidro Heredia MD LAB - HEMATOLOGY OR DERABLES [facility] INSURANCE BILL * (ABNORMAL) COMPREHENSIVE METABOLIC PANEL (03/04/2015 2:00 PM QUALITY ASSURANCE INTERN) Glucose 106 74 - 106 mg/dL [facility] [...] BLOOD SPECIMEN / Unknown 03/04/2015 2:00 PM QUALITY ASSURANCE INTERN 03/04/2015 6:11 PM QUALITY ASSURANCE INTERN Narrative Resulting Agency Comment [facility] [address] [facility] ??[place] [phone] Isidro Heredia MD LAB - CHEMISTRY ORD ERABLES [facility] INSURANCE BILL * CBC W AUTO DIFFERENTIAL (03/04/2015 2:00 PM QUALITY ASSURANCE INTERN) WBC 9.2 4.4 - 10.7 x10E9/L [facility] [...] BLOOD SPECIMEN / Unknown 03/04/2015 2:00 PM QUALITY ASSURANCE INTERN 03/04/2015 6:11 PM QUALITY ASSURANCE INTERN Narrative Resulting Agency Comment [facility] [address] [facility] ??[facility] [id number] Isidro Heredia MD LAB - HEMATOLOGY OR DERABLES [facility] INSURANCE BILL documented in this encounter Visit Diagnoses Diagnosis Rheumatoid arthritis(714.0) (HCC)- Primary Rheumatoid arthritis Chronic pain syndrome Right lumbar radiculopathy Thoracic or lumbosacral neuritis or radiculitis, unspecified documented in this encounter Care Teams Record Clerk Salesperson Relationship Specialty Start Date End Date Tomas Hyman MD [address] [facility] [address] [place] [address] PCP - General Family Medicine 12/31/13 05/09/18 Isidro Heredia MD Rheumatology 02/09/11 documented as of this encounter
--- OUTSIDE RECORDS SUMMARY | 2024-05-10 10:26 | XMS_ITS | Encounter Summary ---
Author Organization [facility] Address [address] [facility] [place] [address] Care Team Providers Care Business Development Recruiter Name Role Phone Isidro Heredia MD Unavailable [phone] Tomas Hyman MD Primary Care Provider [phone] Encounter Details Date Type Department Care Team (Late st Contact Info) Description 11/05/2014 Orders Only [facility] Medical [facility] - Rheumatology [address] [place] [address] [phone] Isidro Heredia MD [address] [place] [address] Rheumatoid arthritis(714.0) ([facility]) Social History Tobacco Use Types [...] Contact Info) Description 06/03/2024 1:00 PM CHAIN PEGGER Appointment [facility] - Rheumatology [address] [place] [address] 06/03/2024 2:00 PM CHAIN PEGGER Office Visit [facility] - Rheumatology [address] [place] [address] Gloria Smith MD [address] [place] [phone] documented as of this encounter Procedures Procedure Name Priority Date/Time Associated Diagnosis Comments ERYTHROCYTE SEDIMENTATION RATE Routine 11/05/2014 12:00 AM CDT Rheumatoid arthritis(714.0) ([facility]) CBC W AUTO DIFFERENTIAL Routine 11/05/2014 12:00 AM CDT Rheumatoid arthritis(714.0) ([facility]) COMPREHENSIVE METABOLIC PANEL Routine 11/05/2014 12:00 AM CDT Rheumatoid arthritis(714.0) ([facility]) documented in this encounter Results * SED RATE WESTERGREN (11/05/2014 12:00 AM CDT) Erythrocyte Sedimentation Rate Westergren 5 0 - 30 mm/hr [facility] INSURANCE BILL Blood specimen (specimen) BLOOD SPECIMEN / Unknown 11/05/2014 11/05/2014 10:20 PM CDT Narrative Resulting Agency Comment [facility] [address] ??[facility] [phone] Isidro Heredia MD LAB - HEMATOLOGY OR [...] CDT Narrative Resulting Agency Comment [facility] [address] ??[facility] [phone] Isidro Heredia MD LAB - CHEMISTRY ORD [...] CDT Narrative Resulting Agency Comment [facility] [address] ??[facility] [phone] Isidro Heredia MD LAB - HEMATOLOGY OR DERABLES [facility] INSURANCE BILL documented in this encounter Visit Diagnoses Diagnosis Rheumatoid arthritis(714.0) ([facility])- Primary Rheumatoid arthritis documented in this encounter Care Teams Business Development Recruiter Relationship Specialty Start Date End Date Tomas Hyman MD [address] [facility] [address] [place] [address] PCP - General Family Medicine 12/31/13 05/09/18 Isidro Heredia MD Rheumatology 02/09/11 documented as of this encounter
--- OUTSIDE RECORDS SUMMARY | 2024-05-10 10:26 | XMS_ITS | Encounter Summary ---
Author Organization [facility] Address [address] [facility] [place] [address] Care Team Providers Care Precast Concrete Products Installer Name Role Phone Isidro Heredia MD Unavailable [phone] Tomas Hyman MD Primary Care Provider [phone] Reason for Visit * Treatment (Routine) - Closed Specialty Diagnoses / Procedures Referred By Lawrence shah Referred To Contact [place] [address] [address] [facility] Pain Care [address] [place] [address] Referral ID Status Reason Start Date Expiration Date Visits Re quested Visits Authorized [id number] Closed 12/21/2014 06/19/2015 1 6 Encounter Details Date Type Department Care Team (Latest Contact Info) Description 12/29/2014 9:03 AM CDT - 12/29/2014 9:04 AM CDT Hospital Encounter [facility] Pain Care [address] [place] [address] [place] [address] [address] Discharge Disposition: Home or Self [...] Sig Dispensed Refills Start Date End Date Ggptgblvaga-Gvzdwensk-Y it C-Mn (GLUCOSAMINE CHONDR 1500 COMPLX PO) [...] st Contact Info) Description 06/03/2024 1:00 PM MARINA MANAGER Appointment [facility] - Rheumatology [address] [place] [address] [phone] 06/03/2024 2:00 PM MARINA MANAGER Office Visit [facility] - Rheumatology [address] [place] [address] [phone] Gloria Smith MD [address] [place] [phone] documented as of this encounter Visit Diagnoses Not on filedocumented in this encounter Care Teams Precast Concrete Products Installer Relationship Specialty Start Date End Date Tomas Hyman MD [address] [facility] [address] [place] [address] PCP - General Family Medicine 12/31/13 05/09/18 Isidro Heredia MD Rheumatology 02/09/11 documented as of this encounter
--- OUTSIDE RECORDS SUMMARY | 2024-05-10 10:26 | XMS_ITS | Encounter Summary ---
Author Organization [facility] Address [address] [facility] [place] [address] Care Team Providers Care Science Professor Name Role Phone Isidro Heredia MD Unavailable [phone] Tomas Hyman MD Primary Care Provider [phone] Reason for Visit * Reason Onset Date Comments MEDICATION REFILL 05/17/2015 Encounter Details Date Type Department Care Team (Late Contact Info) Description 05/17/2015 Refill [facility] - Rheumatology [address] [place] [address] Isidro Heredia MD [address] [place] [address] MEDICATION REFILL Social History Tobacco Use [...] (Late Contact Info) Description 06/03/2024 1:00 PM PEARL DIVER Appointment [facility] - Rheumatology [address] [place] [address] 06/03/2024 2:00 PM PEARL DIVER Office Visit [facility] - Rheumatology [address] [place] [address] Gloria Smith MD [address] [place] [phone] documented as of this encounter Visit Diagnoses Diagnosis Rheumatoid arthritis of multiple 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
--- OUTSIDE RECORDS SUMMARY | 2024-05-10 10:26 | XMS_ITS | Encounter Summary ---
Author Organization [facility] Address [address] [place] [place] [address] Care Team Providers Care Upholstery Estimator Name Role Phone Isidro Heredia MD Unavailable [phone] Tomas Hyman MD Primary Care Provider [phone] Reason for Visit * Treatment (Routine) - Closed Specialty Diagnoses / Procedures Referred By Lawrence shah Referred To Contact Infusion Therapy Nurse Diagnoses Rheumatoid arthritis(714.0) ([facility]) Procedures [place] INJECTION TOCILIZUMAB 1 MG Isidro Heredia MD [address] [place] [address] [address] Referral ID Status Reason Start Date Expiration Date Visits Re quested Visits Authorized [id number] Closed 09/29/2014 04/29/2015 1 6 Encounter Details Date Type Department Care Team (Late st Contact Info) Description 01/07/2015 1:55 PM CDT - 01/07/2015 11:59 PM CDT Hospital Encounter [facility] Medical [facility] - Rheumatology [address] [place] [address] Isidro Heredia MD [address] [facility] [place] [place] [address] Discharge Disposition: Home or Self [...] Foreman RN - 01/07/2015 2:30 PM CDT [place] Rheumatology Post Infusion instructions [...] Sunday through 01-02 call the office at [phone] After hours or on the weekend call the exchange at [phone] If you have had lab work done [...] Sig Dispensed Refills Start Date End Date Mzsylktrrqg-Duhkkmomc-Y it C-Mn (GLUCOSAMINE CHONDR 1500 COMPLX PO) [...] 01/07/2015 2:26 PM CDT JOSE Chalino Deng [id number] 01/07/2015 Diagnosis: Rheumatoid arthritis(714.0) [714.0]. Patient questionnaire [...] st Contact Info) Description 06/03/2024 1:00 PM ENDLESS TRACK VEHICLE MECHANIC Appointment [facility] - Rheumatology [address] [place] [address] 06/03/2024 2:00 PM ENDLESS TRACK VEHICLE MECHANIC Office Visit [facility] - Rheumatology [address] [place] [address] Gloria Smith MD [address] [place] [phone] documented as of this encounter Visit [...] mL/hr documented in this encounter Care Teams Upholstery Estimator Relationship Specialty Start Date End Date Tomas Hyman MD [address] [facility] [address] [place] [address] PCP - General Family Medicine 12/31/13 05/09/18 Isidro Heredia MD Rheumatology 02/09/11 documented as of this encounter
--- OUTSIDE RECORDS SUMMARY | 2024-05-10 10:26 | XMS_ITS | Encounter Summary ---
Author Organization [facility] Address [address] [facility] [place] [address] Care Team Providers Care Clinical Dietitian Name Role Phone Isidro Heredia MD Unavailable [phone] Tomas Hyman MD Primary Care Provider [phone] Reason for Visit * Reason Comments Refill Request Encounter Details Date Type Department Care Team (Late Contact Info) Description 11/25/2014 Refill [facility] - Rheumatology [address] [place] [address] Isidro Heredia MD [address] [place] [address] Refill Request Social History Tobacco Use [...] (Late Contact Info) Description 06/03/2024 1:00 PM PER DIEM RN Appointment [facility] - Rheumatology [address] [place] [address] 06/03/2024 2:00 PM PER DIEM RN Office Visit [facility] Rheumatology [address] [place] [address] Gloria Smith MD [address] [place] [address], [place] [address] documented as of this encounter Visit Diagnoses Not on filedocumented in this encounter Care Teams Clinical Dietitian Relationship Specialty Start Date End Date Tomas Hyman MD [address] [place] [address] PCP - General Family Medicine 12/31/13 05/09/18 Isidro Heredia MD Rheumatology 02/09/11 documented as of this encounter
--- OUTSIDE RECORDS SUMMARY | 2024-05-10 10:26 | XMS_ITS | Encounter Summary ---
Author Organization [facility] Address [address] [facility] [place] [address] Care Team Providers Care Integrated Circuit Ic Layout Designer Name Role Phone Isidro Heredia MD Unavailable [phone] Tomas Hyman MD Primary Care Provider [phone] Reason for Visit * Treatment (Routine) - Closed Specialty Diagnoses / Procedures Referred By Lawrence shah Referred To Contact Infusion Therapy Nurse Diagnoses Rheumatoid arthritis(714.0) (HCC) Rheumatoid arthritis without rheumatoid factor, multiple sites (HCC) Procedures [place] INFLIXIMAB INJECTION [place] INJECTION TOCILIZUMAB 1 MG Isidro Heredia MD [address] [place] [address] [address] Referral ID Status Reason Start Date Expiration Date Visits Re quested Visits Authorized [id number] Closed 01/07/2015 01/08/2016 1 12 Encounter Details Date Type Department Care Team (Late st Contact Info) Description 02/04/2015 2:00 PM CDT - 02/04/2015 11:59 PM CDT Hospital Encounter [facility] Medical [facility] - Rheumatology [address] [place] [address] [phone] Isidro Heredia MD [address] [place] [address] Discharge Disposition: Home or Self [...] Sahu RN - 02/04/2015 2:37 PM CDT [place] Rheumatology Post Infusion instructions [...] through Sunday 9-5 call the office at [phone] After hours or on the weekend call the exchange at [phone] If you have had lab work done [...] Sig Dispensed Refills Start Date End Date Rlrmbifaumq-Yaslqxsct-N it C-Mn (GLUCOSAMINE CHONDR 1500 COMPLX PO) [...] - 02/04/2015 2:38 PM CDT JOSE Deng [id number] 02/04/2015 Diagnosis: There are no admission diagnoses [...] Contact Info) Description 06/03/2024 1:00 PM BARREL MARKER Appointment [facility] - Rheumatology [address] [place] [address] 06/03/2024 2:00 PM BARREL MARKER Office Visit [facility] - Rheumatology [address] [place] [address] Gloria Smith MD [address] [place] [phone] documented as of this encounter Visit Diagnoses [...] mL/hr documented in this encounter Care Teams Integrated Circuit Ic Layout Designer Relationship Specialty Start Date End Date Tomas Hyman MD [address] [facility] [address] [place] [address] PCP - General Family Medicine 12/31/13 05/09/18 Isidro Heredia MD Rheumatology 02/09/11 documented as of this encounter
--- OUTSIDE RECORDS SUMMARY | 2024-05-10 10:26 | XMS_ITS | Encounter Summary ---
Author Organization [facility] Address [address] [place] [address] Care Team Providers Care Emery Wheel Molder Name Role Phone Isidro Heredia MD Unavailable [phone] Tomas Hyman MD Primary Care Provider [phone] Reason for Visit * Treatment (Routine) - Closed Specialty Diagnoses / Procedures Referred By Lawrence shah Referred To Contact Infusion Therapy Nurse Diagnoses Rheumatoid arthritis(714.0) ([facility]) Procedures IN INJECTION TOCILIZUMAB 1 MG Isidro Heredia MD [address] [place] [address] [address] Referral ID Status Reason Start Date Expiration Date Visits Re quested Visits Authorized [id number] Closed 09/29/2014 04/29/2015 1 6 Encounter Details Date Type Department Care Team (Late st Contact Info) Description 03/04/2015 1:40 PM GYM INSTRUCTOR - 03/04/2015 11:59 PM GYM INSTRUCTOR Hospital Encounter [facility] Medical [facility] - Rheumatology [address] [place] [address] Isidro Heredia MD 58 [place] [address] Discharge Disposition: Home or Self [...] Comments Blood Pressure 133/88 03/04/2015 2:01 PM GYM INSTRUCTOR Pulse 103 03/04/2015 2:01 PM GYM INSTRUCTOR Temperature 37 ??C (98.6 ??F) 03/04/2015 2:01 PM GYM INSTRUCTOR Respiratory Rate 16 03/04/2015 2:01 PM GYM INSTRUCTOR Oxygen Saturation - - Inhaled Oxygen Concentration - - Weight 116.1 kg (256 lb) 03/04/2015 2:01 PM GYM INSTRUCTOR Height - - Body Mass Index 36.73 02/04/2015 2:14 PM CDT documented in this encounter Discharge Instructions * Discharge Instructions* Carlos Foreman RN - 03/04/2015 2:54 PM GYM INSTRUCTOR [place] Rheumatology Post Infusion instructions You have [...] Sunday through Sunday-5 call the office at [phone] After hours or on the weekend call the exchange at [phone] If you have had lab work done [...] Center as your provider. Carlos Foreman RN INSTRUCTOR documented in this encounter Medications at Time of Discharge Medication Sig Dispensed Refills Start Date End Date Npdkkxbrgve-Xmeacyfgp-J it C-Mn (GLUCOSAMINE CHONDR 1500 COMPLX PO) [...] oxyCODONE-acetaminophen (PERCOCET) 5-325 MG tabletIndications:Rheum atoid arthritis(714.0) ([facility]) Take 1 Tab by [...] - 03/04/2015 2:34 PM CST JOSE Deng [id number] 03/04/2015 Diagnosis: Rheumatoid arthritis, unspecified [M06.9]. Patient [...] Yes Next treatment? 4wk Carlos Foreman RN INSTRUCTOR documented in this encounter Plan of Treatment Upcoming Encounters Date Type Department Care Team (Late st Contact Info) Description 06/03/2024 1:00 PM GYM INSTRUCTOR Appointment [facility] - Rheumatology [address] [place] [address] [phone] 06/03/2024 2:00 PM GYM INSTRUCTOR Office Visit [facility] - Rheumatology [address] [place] [address] [phone] Gloria Smith MD [address] [place] [phone] documented as of this encounter Visit Diagnoses Diagnosis Rheumatoid arthritis(714.0) ([facility]) Rheumatoid arthritis documented in [...] 24hrs RT $ Given 03/04/2015 2:16 PM GYM INSTRUCTOR 800 mg 118 mL/hr documented in this encounter Care Teams Emery Wheel Molder Relationship Specialty Start Date End Date Tomas Hyman MD [address] [facility] [address] [place] [address] PCP - General Family Medicine 12/31/13 05/09/18 Isidro Heredia MD Rheumatology 02/09/11 documented as of this encounter
--- OUTSIDE RECORDS SUMMARY | 2024-05-10 10:26 | XMS_ITS | Encounter Summary ---
Author Organization [facility] Address [address] [facility] [place] [address] Care Team Providers Care Bacteriologist Soil Name Role Phone Isidro Heredia MD Unavailable Tomas Hyman MD Primary Care Provider [phone] Encounter Details Date Type Department Care Team (Latest Contact Info) Description 04/06/2015 1:43 PM BOX CAR BRACER - 04/06/2015 11:59 PM BOX CAR BRACER Hospital Encounter [facility] Pain Care [address] [place] [address] [place] [address] [place] [phone] Discharge Disposition: Home or Self Care Social [...] Comments Blood Pressure 132/87 04/06/2015 2:17 PM BOX CAR BRACER Pulse 89 04/06/2015 2:17 PM BOX CAR BRACER Temperature - - Respiratory Rate 16 04/06/2015 2:17 PM BOX CAR BRACER Oxygen Saturation 98% 04/06/2015 2:17 PM BOX CAR BRACER Inhaled Oxygen Concentration - - Weight - - Height - - Body Mass Index - - documented in this encounter Medications at Time of Discharge Medication Sig Dispensed Refills Start Date End Date Pptuhgcnqej-Guqaehmai-Q it C-Mn (GLUCOSAMINE CHONDR 1500 COMPLX PO) [...] Contact Info) Description 06/03/2024 1:00 PM BOX CAR BRACER Appointment [facility] - Rheumatology [address] [place] [address] [phone] 06/03/2024 2:00 PM BOX CAR BRACER Office Visit [facility] - Rheumatology [address] [place] [address] [phone] Gloria Smith MD [address] [place] [phone] Pending Results Name Type Priority Associated Diagnoses Date /Time PAIN MANAGEMENT PROCEDURE TIME Imaging Routine Displacement of lumbar intervertebral disc without myelopathy Thoracic or lumbosacral neuritis or radiculitis, unspecified 04/06/2015 2:12 PM BOX CAR BRACER documented as of this encounter Visit Diagnoses Diagnosis Displacement of lumbar intervertebral disc without myelopathy- Primary documented in this encounter Care Teams Bacteriologist Soil Relationship Specialty Start Date End Date Tomas Hyman MD [address] [facility] [address] [place] [address] PCP - General Family Medicine 12/31/13 05/09/18 Isidro Heredia MD Rheumatology 02/09/11 documented as of this encounter
--- OUTSIDE RECORDS SUMMARY | 2024-05-10 10:26 | XMS_ITS | Encounter Summary ---
Author Organization [facility] Address [address] [facility] [address] Care Team Providers Care Wire Galvanizer Name Role Phone Isidro Heredia MD Unavailable [phone] Tomas Hyman MD Primary Care Provider [phone] Reason for Visit * Treatment (Routine) - Closed Specialty Diagnoses / Procedures Referred By Lawrence shah Referred To Contact Infusion Therapy Nurse Diagnoses Rheumatoid arthritis(714.0) ([facility]) Procedures [place] INJECTION TOCILIZUMAB 1 MG Isidro Heredia MD 58 [place] [address] [address] Referral ID Status Reason Start Date Expiration Date Visits Re quested Visits Authorized [id number] Closed 09/29/2014 04/29/2015 1 6 Encounter Details Date Type Department Care Team (Late st Contact Info) Description 12/03/2014 1:21 PM CDT - 12/03/2014 11:59 PM CDT Hospital Encounter [facility] Medical [facility] - Rheumatology [address] [place] [address] Isidro Heredia MD [address] [facility] [place] [address] Discharge Disposition: Home or Self [...] Foreman RN - 12/03/2014 2:03 PM CDT [place] Rheumatology Post Infusion [...] through Sunday 9-5 call the office at [phone] After hours or on the weekend call the exchange at [phone] If you have had lab work done [...] Sig Dispensed Refills Start Date End Date Uontjbgwmwj-Jvvbdqwjo-W it C-Mn (GLUCOSAMINE CHONDR 1500 COMPLX PO) [...] 12/03/2014 1:59 PM CDT JOSE Chalino Deng [id number] 12/03/2014 Diagnosis: Rheumatoid arthritis(714.0) [714.0]. Patient questionnaire [...] st Contact Info) Description 06/03/2024 1:00 PM BOTTOM PRESSER Appointment [facility] - Rheumatology [address] [place] [address] [phone] 06/03/2024 2:00 PM BOTTOM PRESSER Office Visit [facility] - Rheumatology [address] [place] [address] Gloria Smith MD [address] [place] [phone] documented as of this encounter Visit Diagnoses [...] r documented in this encounter Care Teams Wire Galvanizer Relationship Specialty Start Date End Date Tomas Hyman MD [address] [facility] [address] [place] [address] PCP - General Family Medicine 12/31/13 05/09/18 Isidro Heredia MD Rheumatology 02/09/11 documented as of this encounter
--- OUTSIDE RECORDS SUMMARY | 2024-05-10 10:26 | XMS_ITS | Encounter Summary ---
Author Organization [facility] Address [address] [facility] [place] [address] Care Team Providers Care Testing Shaking Shipping Name Role Phone Hitesh Solis MD Unavailable [phone] Tomas Hyman MD Primary Care Provider [phone] Reason for Visit * Reason Comments Rheumatoid Arthritis Encounter Details Date Type Department Care Team (Late st Contact Info) Description 06/14/2015 3:30 PM BUSINESS ANALYSIS CONSULTANT Office Visit [facility] - Rheumatology [address] [place] [address] Hitesh Solis MD [address] [place] [address] Rheumatoid arthritis of multiple sites with [...] Comments Blood Pressure 137/84 06/14/2015 3:34 PM BUSINESS ANALYSIS CONSULTANT Pulse 98 06/14/2015 3:34 PM BUSINESS ANALYSIS CONSULTANT Temperature - - Respiratory Rate - [...] PO) Take by mouth once daily. ??? Wprxtsplkmi-Rxjxjsyrf-Uwi C-Mn (GLUCOSAMINE CHONDR 1500 COMPLX PO) Take [...] on: 06/14/2015 04:16 PM Modules accepted: Orders NESS ANALYSIS CONSULTANT documented in this encounter Plan of Treatment Upcoming Encounters Date Type Department Care Team (Late st Contact Info) Description 06/03/2024 1:00 PM BUSINESS ANALYSIS CONSULTANT Appointment [facility] - Rheumatology [address] [place] [address] 06/03/2024 2:00 PM BUSINESS ANALYSIS CONSULTANT Office Visit [facility] - Rheumatology [address] [place] [address] Gloria Smith MD [address] [place] [phone] documented as of this encounter Visit Diagnoses Diagnosis 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
--- OUTSIDE RECORDS SUMMARY | 2024-05-10 10:26 | XMS_ITS | Encounter Summary ---
Author Organization [facility] Address [address] [place] [address] Care Team Providers Care Manager Summer Name Role Phone Isidro Heredia MD Unavailable [phone] Tomas Hyman MD Primary Care Provider [phone] Reason for Visit * Treatment (Routine) - Closed Specialty Diagnoses / Procedures Referred By Lawrence shah Referred To Contact [place] [phone] [address] [facility] Pain Care [address] [place] [address] Referral ID Status Reason Start Date Expiration Date Visits Re quested Visits Authorized [id number] Closed 12/21/2014 06/19/2015 1 6 Encounter Details Date Type Department Care Team (Latest Contact Info) Description 04/06/2015 1:30 PM AMERICAN HISTORY PROFESSOR - 04/06/2015 1:42 PM [facility] Hospital Encounter [facility] Pain Care [address] [place] [address] [place] [address] [address] Discharge Disposition: Home or Self [...] Beatris Gallegos RN - 04/06/2015 1:56 PM AMERICAN HISTORY PROFESSOR [facility] Pain Discharge Instructions [...] headache, or any other problems, please call [phone] or after hours callDr. Mirza at [phone] and tell them your physician's name. The exchange will alert the physician satellite communications operator. If sedation is given: No sedation given. For Your Next Visit: No additional instructions. Other Instructions: May remove band-aid in 12 Hours. Return next week follow up in 2 weeks. ICAN HISTORY PROFESSOR documented in this encounter Medications at Time of Discharge Medication Sig Dispensed Refills Start Date End Date Ccyyposotql-Veqhqnvfs-G it C-Mn (GLUCOSAMINE CHONDR 1500 COMPLX PO) [...] Coumidin, Plavix or other blood thinners. Responsible truck driver instructor is not needed due to the patient [...] Follow Up: 1 week Alejandro Mirza MD ICAN HISTORY PROFESSOR documented in this encounter Plan of Treatment Upcoming Encounters Date Type Department Care Team (Late st Contact Info) Description 06/03/2024 1:00 PM AMERICAN HISTORY PROFESSOR Appointment [facility] - Rheumatology [address] [place] [address] [phone] 06/03/2024 2:00 PM AMERICAN HISTORY PROFESSOR Office Visit [facility] - Rheumatology [address] [place] [address] [phone] Gloria Smith MD [address] [place] [phone] documented as of this encounter Visit Diagnoses Not on filedocumented in this encounter Administered Medications Inactive Administered Medications - up to 3 most recent administrations Medication Order MAR Action Action Date Dose Rate Site methylPREDNISolone acetate (DEPO-MEDROL) injection 80 mg 80 mg, Intramuscular, INTRA-PROCEDURE ONCE, 1 dose, On Sun04/06/15 at 1356 $ Admin. by Other Provider 04/06/2015 2:03 PM AMERICAN HISTORY PROFESSOR 80 mg Back documented in this encounter Care Teams Manager Summer Relationship Specialty Start Date End Date Tomas Hyman MD [address] [facility] [address] [place] [address] PCP - General Family Medicine 12/31/13 05/09/18 Isidro Heredia MD Rheumatology 02/09/11 documented as of this encounter
--- OUTSIDE RECORDS SUMMARY | 2024-05-10 10:26 | XMS_ITS | Encounter Summary ---
Author Organization [facility] Address [address] [facility] [place] [address] Care Team Providers Care Lsw Name Role Phone Isidro Heredia MD Unavailable [phone] Tomas Hyman MD Primary Care Provider [phone] Reason for Visit * Treatment (Routine) - Closed Specialty Diagnoses / Procedures Referred By Lawrence shah Referred To Contact Infusion Therapy Nurse Diagnoses Rheumatoid arthritis(714.0) (HCC) Rheumatoid arthritis without rheumatoid factor, multiple sites (HCC) Procedures [place] INFLIXIMAB INJECTION [place] INJECTION TOCILIZUMAB 1 MG Isidro Heredia MD [address] [place] [address] [address] Referral ID Status Reason Start Date Expiration Date Visits Re quested Visits Authorized [id number] Closed 01/07/2015 01/08/2016 1 12 Encounter Details Date Type Department Care Team (Late st Contact Info) Description 06/14/2015 3:00 PM POST TRONIC MACHINE OPERATOR - 06/14/2015 11:59 PM POST TRONIC MACHINE OPERATOR Hospital Encounter [facility] Medical [facility] - Rheumatology [address] [place] [address] Isidro Heredia MD [address] [place] [address] Discharge Disposition: Home or Self [...] Comments Blood Pressure 137/84 06/14/2015 3:17 PM POST TRONIC MACHINE OPERATOR Pulse 98 06/14/2015 3:17 PM POST TRONIC MACHINE OPERATOR Temperature 36.9 ??C (98.4 ??F) 06/14/2015 3:17 PM CS T Respiratory Rate 16 06/14/2015 3:17 PM POST TRONIC MACHINE OPERATOR Oxygen Saturation - - Inhaled Oxygen Concentration - - Weight - - Height - - Body Mass Index - - documented in this encounter Discharge Instructions * Discharge Instructions* Carlos Foreman RN - 06/14/2015 3:18 PM POST TRONIC MACHINE OPERATOR [place] Rheumatology Post Infusion instructions You have [...] through Sunday 9-5 call the office at [phone] After hours or on the weekend call the exchange at [phone] If you have had lab work done [...] chosen [facility] as your provider. Carlos Foreman RN TRONIC MACHINE OPERATOR documented in this encounter Medications at Time of Discharge Medication Sig Dispensed Refills Start Date End Date Bjziusqjxfx-Bfhbzgoqa-W it C-Mn (GLUCOSAMINE CHONDR 1500 COMPLX PO) [...] - 06/14/2015 3:32 PM CST JOSE Deng [id number] 06/14/2015 Diagnosis: Rheumatoid arthritis without rheumatoid factor, [...] Yes Next treatment? 4wk Carlos Foreman RN TRONIC MACHINE OPERATOR documented in this encounter Plan of Treatment Upcoming Encounters Date Type Department Care Team (Late st Contact Info) Description 06/03/2024 1:00 PM POST TRONIC MACHINE OPERATOR Appointment [facility] - Rheumatology [address] [place] [address] 06/03/2024 2:00 PM POST TRONIC MACHINE OPERATOR Office Visit [facility] - Rheumatology [address] [place] [address] Gloria Smith MD [address] [place] [phone] documented as of this encounter Visit [...] 24hrs RT $ Given 06/14/2015 3:25 PM POST TRONIC MACHINE OPERATOR 800 mg 140 mL/hr documented in this encounter Care Teams Lsw Relationship Specialty Start Date End Date Tomas Hyman MD [address] [facility] [address] [place] [address] PCP - General Family Medicine 12/31/13 05/09/18 Isidro Heredia MD Rheumatology 02/09/11 documented as of this encounter
--- OUTSIDE RECORDS SUMMARY | 2024-05-10 10:26 | XMS_ITS | Encounter Summary ---
Author Organization [facility] Address [address] [place] [address] Care Team Providers Care Doctor Naturopathic Name Role Phone Isidro Heerdia MD Unavailable [phone] Tomas Hyman MD Primary Care Provider [phone] Encounter Details Date Type Department Care Team (Latest Contact Info) Description 12/21/2014 9:20 AM CDT - 12/21/2014 11:59 PM CDT Hospital Encounter [facility] Care [address] [place] [address] [place] [address] [place] [address] Discharge Disposition: Home or Self Care Social [...] Littlejohn RN - 12/21/2014 9:31 AM CDT [facility] Pain Discharge Instructions Selective Epidural [...] headache, or any other problems, please call [phone] or after hours callDr. Mirza at [phone] and tell them your physician's name. The exchange will alert the physician production welding supervisor. If sedation is given: No sedation given. For Your Next Visit: No additional instructions. Other Instructions: May remove band-aid in 12 Hours. Return in one week for KIMBERLEY #2. Patient Signature: Date: RN Signature: Date: documented in this encounter Medications at Time of Discharge Medication Sig Dispensed Refills Start Date End Date Uboguqzgyds-Djdqbioql-G it C-Mn (GLUCOSAMINE CHONDR 1500 COMPLX PO) [...] Coumidin, Plavix or other blood thinners. Responsible local driver is not needed due to the [...] Info) Description 06/03/2024 1:00 PM SENIOR UI DEVELOPER Appointment [facility] - Rheumatology [address] [place] [address] 06/03/2024 2:00 PM SENIOR UI DEVELOPER Office Visit [facility] - Rheumatology [address] [place] [address] Gloria Smith MD [address] [place] [phone] documented as of this encounter Procedures [...] Coumidin, Plavix or other blood thinners. ??Responsible local driver is not needed due to the [...] Back documented in this encounter Care Teams Doctor Naturopathic Relationship Specialty Start Date End Date Tomas Hyman MD [address] [facility] [address] [place] [address] PCP - General Family Medicine 12/31/13 05/09/18 Isidro Heredia MD Rheumatology 02/09/11 documented as of this encounter
--- OUTSIDE RECORDS SUMMARY | 2024-05-10 10:26 | XMS_ITS | Encounter Summary ---
Author Organization [facility] Address [address] [facility] [place] [address] Care Team Providers Care Community Health Education Coordinator Name Role Phone Isidro Heredia MD Unavailable [phone] Tomas Hyman MD Primary Care Provider [phone] Reason for Visit * Reason Comments Rheumatoid Arthritis * Evaluate & Treat (Routine) - Closed Specialty Diagnoses / Procedures Referred By Lawrence t Referred To Contact Diagnoses Rheumatoid arthritis(714.0) ([facility]) Procedures RI OFFICE/OUTPT VISIT,EST,JULITO I Tomas Hyman MD [address] [place] [address] Isidro Heredia MD [address] [place] [address] Referral ID Status Reason Start Date Expiration Date Visits Re quested Visits Authorized [id number] Closed 09/09/2014 03/08/2015 5 5 Encounter Details Date Type Department Care Team (Late st Contact Info) Description 02/04/2015 2:15 PM CDT Office Visit [facility] Medical [facility] - Rheumatology [address] [place] [address] Isidro Heredia MD [address] [place] [address] Rheumatoid arthritis(714.0) (HCC) (Primary Dx); Chronic [...] PO) Take by mouth once daily. ??? Txzqxjvgvol-Naiufyuou-Hbg C-Mn (GLUCOSAMINE CHONDR 1500 COMPLX PO) Take [...] st Contact Info) Description 06/03/2024 1:00 PM THERMOCOUPLE TESTER Appointment [facility] - Rheumatology [address] [place] [address] [phone] 06/03/2024 2:00 PM THERMOCOUPLE TESTER Office Visit [facility] - Rheumatology [address] [place] [address] [phone] Gloria Smith MD [address] [place] [phone] documented as of this encounter Visit Diagnoses Diagnosis Rheumatoid arthritis(714.0) ([facility])- Primary Rheumatoid arthritis Chronic pain syndrome documented in this encounter Care Teams Community Health Education Coordinator Relationship Specialty Start Date End Date Tomas Hyman MD [address] [facility] [address] [place] [address] PCP - General Family Medicine 12/31/13 05/09/18 Isidro Heredia MD Rheumatology 02/09/11 documented as of this encounter
--- OUTSIDE RECORDS SUMMARY | 2024-05-10 10:26 | XMS_ITS | Encounter Summary ---
Author Organization [facility] Address [address] [facility] [place] [address] Care Team Providers Care Returns Processor Name Role Phone Isidro Heredia MD Unavailable [phone] Tomas Hyman MD Primary Care Provider [phone] Reason for Visit * Treatment (Routine) - Closed Specialty Diagnoses / Procedures Referred By Lawrence shah Referred To Contact Infusion Therapy Nurse Diagnoses Rheumatoid arthritis(714.0) ([facility]) Procedures [place] INJECTION TOCILIZUMAB 1 MG Isidro Heredia MD [address] [place] [address] [address] Referral ID Status Reason Start Date Expiration Date Visits Re quested Visits Authorized [id number] Closed 09/29/2014 04/29/2015 1 6 Encounter Details Date Type Department Care Team (Late st Contact Info) Description 11/05/2014 2:34 PM CDT - 11/05/2014 11:59 PM CDT Hospital Encounter [facility] Medical [facility] - Rheumatology [address] [place] [address] Isidro Heredia MD [address] [place] [address] Discharge Disposition: Home or Self [...] Foreman RN - 11/05/2014 3:58 PM CDT [place] Rheumatology Post Infusion [...] Sunday through 01-02 call the office at [phone] After hours or on the weekend call the exchange at [phone] If you have had lab work done [...] Sig Dispensed Refills Start Date End Date Vwnthyjhqky-Atmbzzirk-C it C-Mn (GLUCOSAMINE CHONDR 1500 COMPLX PO) [...] 11/05/2014 3:56 PM CDT JOSE Chalino Deng [id number] 11/05/2014 Diagnosis: Rheumatoid arthritis(714.0) [714.0]. Patient questionnaire [...] st Contact Info) Description 06/03/2024 1:00 PM GEAR GRINDER Appointment [facility] - Rheumatology [address] [place] [address] [phone] 06/03/2024 2:00 PM GEAR GRINDER Office Visit [facility] - Rheumatology [address] [place] [address] Gloria Smith MD [address] [place] [phone] documented as of this encounter Visit Diagnoses [...] r documented in this encounter Care Teams Returns Processor Relationship Specialty Start Date End Date Tomas Hyman MD [address] [place] [address] PCP - General Family Medicine 12/31/13 05/09/18 Isidro Heredia MD Rheumatology 02/09/11 documented as of this encounter
--- OUTSIDE RECORDS SUMMARY | 2024-05-10 10:26 | XMS_ITS | Encounter Summary ---
Author Organization [facility] Address [address] [place] [address] Care Team Providers Care Iridologist Name Role Phone Isidro Heredia MD Unavailable [phone] Tomas Hyman MD Primary Care Provider [phone] Reason for Visit * Reason Comments Follow-up RA * Evaluate & Treat (Routine) - Closed Specialty Diagnoses / Procedures Referred By Lawrence t Referred To Contact Diagnoses Rheumatoid arthritis(714.0) (HCC) Procedures [place] OFFICE/OUTPT VISIT,EST,JULITO I Tomas Hyman MD [address] [place] [address] Isidro Heredia MD [address] [place] [address] Referral ID Status Reason Start Date Expiration Date Visits Re quested Visits Authorized [id number] Closed 09/09/2014 03/08/2015 5 5 Encounter Details Date Type Department Care Team (Late st Contact Info) Description 12/03/2014 2:00 PM CDT Office Visit [facility] Medical [facility] - Rheumatology [address] [place] [address] Isidro Heredia MD [address] [place] [address] Rheumatoid arthritis(714.0) (HCC) (Primary Dx); Chronic [...] PO) Take by mouth once daily. ??? Kcataufzzce-Swizctmnd-Fua C-Mn (GLUCOSAMINE CHONDR 1500 COMPLX PO) Take [...] Contact Info) Description 06/03/2024 1:00 PM FIELD COORDINATOR Appointment [facility] - Rheumatology [address] [place] [address] 06/03/2024 2:00 PM FIELD COORDINATOR Office Visit [facility] - Rheumatology [address] [place] [address] Gloria Smith MD [address] [place] [address] [phone] documented as of this encounter Visit Diagnoses Diagnosis Rheumatoid arthritis(714.0) ([facility])- Primary Rheumatoid arthritis Chronic pain syndrome documented in this encounter Care Teams Iridologist Relationship Specialty Start Date End Date Tomas Hyman MD [address] [place] [address] PCP - General Family Medicine 12/31/13 05/09/18 Isidro Heredia MD Rheumatology 02/09/11 documented as of this encounter
--- OUTSIDE RECORDS SUMMARY | 2024-05-10 10:26 | XMS_ITS | Encounter Summary ---
Author Organization [facility] Address [address] [facility] [place] [address] Care Team Providers Care Operations Supervisor Name Role Phone Isidro Heredia MD Unavailable Tomas Hyman MD Primary Care Provider [phone] Reason for Visit * Treatment (Routine) - Closed Specialty Diagnoses / Procedures Referred By Lawrence shah Referred To Contact Infusion Therapy Nurse Diagnoses Rheumatoid arthritis(714.0) ([facility]) Procedures [place] INJECTION TOCILIZUMAB 1 MG Isidro Heredia MD [address] [place] [address] [address] Referral ID Status Reason Start Date Expiration Date Visits Re quested Visits Authorized [id number] Closed 09/29/2014 04/29/2015 1 6 Encounter Details Date Type Department Care Team (Late st Contact Info) Description 04/07/2015 2:51 PM PIANO REGULATOR INSPECTOR - 04/07/2015 11:59 PM PIANO REGULATOR INSPECTOR Hospital Encounter [facility] Medical [facility] - Rheumatology [address] [place] [address] Isidro Heredia MD [address] [place] [address] Discharge Disposition: Home or Self [...] Comments Blood Pressure 120/88 04/07/2015 3:10 PM PIANO REGULATOR INSPECTOR Pulse 108 04/07/2015 3:10 PM PIANO REGULATOR INSPECTOR Temperature 37 ??C (98.6 ??F) 04/07/2015 3:10 PM PIANO REGULATOR INSPECTOR Respiratory Rate 16 04/07/2015 3:10 PM PIANO REGULATOR INSPECTOR Oxygen Saturation - - Inhaled Oxygen Concentration - - Weight 117 kg (258 lb) 04/07/2015 3:10 PM PIANO REGULATOR INSPECTOR Height 177.8 cm (5' 10 ) 04/07/2015 3:10 PM PIANO REGULATOR INSPECTOR Body Mass Index 37.02 04/07/2015 3:10 PM PIANO REGULATOR INSPECTOR documented in this encounter Discharge Instructions * Discharge Instructions* Jody Sahu RN - 04/07/2015 3:40 PM PIANO REGULATOR INSPECTOR [place] Rheumatology Post Infusion instructions You have [...] Sunday through 01-02 call the office at [phone] After hours or on the weekend call the exchange at [phone] If you have had lab work done [...] Hospital as your provider. Jody Sahu RN O REGULATOR INSPECTOR documented in this encounter Medications at Time of Discharge Medication Sig Dispensed Refills Start Date End Date Gfloyzxfuls-Ojuzyuaop-R it C-Mn (GLUCOSAMINE CHONDR 1500 COMPLX PO) [...] 04/07/2015 3:42 PM CST JOSE Chalino Deng [id number] 04/07/2015 Diagnosis: Rheumatoid arthritis, unspecified [M06.9]. Pt [...] Next treatment? 4 weeks Jody Sahu RN O REGULATOR INSPECTOR documented in this encounter Plan of Treatment Upcoming Encounters Date Type Department Care Team (Late st Contact Info) Description 06/03/2024 1:00 PM PIANO REGULATOR INSPECTOR Appointment [facility] - Rheumatology [address] [place] [address] 06/03/2024 2:00 PM PIANO REGULATOR INSPECTOR Office Visit [facility] - Rheumatology [address] [place] [address] Gloria Smith MD [address] [place] [address] [phone] documented as of this encounter Visit Diagnoses [...] 24hrs RT $ Given 04/07/2015 3:30 PM PIANO REGULATOR INSPECTOR 800 mg 140 mL/hr documented in this encounter Care Teams Operations Supervisor Relationship Specialty Start Date End Date Tomas Hyman MD [address] [facility] [address] [place] [address] PCP - General Family Medicine 12/31/13 05/09/18 Isidro Heredia MD Rheumatology 02/09/11 documented as of this encounter
--- OUTSIDE RECORDS SUMMARY | 2024-05-10 10:26 | XMS_ITS | Encounter Summary ---
Author Organization [facility] Address [address] [facility] [place] [address] Care Team Providers Care C D Reactor Operator Name Role Phone Isidro Heredia MD Unavailable [phone] Tomas Hyman MD Primary Care Provider Reason for Visit * Reason Onset Date Comments Appointment 04/20/2015 Encounter Details Date Type Department Care Team (Late st Contact Info) Description 04/20/2015 Telephone [facility] Medical [facility] - Rheumatology [address] [place] [address] Isidro Heredia MD [address] [place] [address] Appointment Social History Tobacco Use Types [...] - 05/21/2015 7:47 AM CST Infusion scheduled. ER MAKER * Telephone Encounter - Erika Julien - 05/07/2015 1:12 PM CST Pt is calling back for appt ER MAKER * Telephone Encounter - Patricia Bonds - 04/20/2015 2:28 PM CST Pt calling to make an appointment for an infusion. The pt states that he would like to see Dr. Heredia at the same time. Please call. ER MAKER documented in this encounter Plan of Treatment Upcoming Encounters Date Type Department Care Team (Late st Contact Info) Description 06/03/2024 1:00 PM MARKER MAKER Appointment [facility] - Rheumatology [address] [place] [address] 06/03/2024 2:00 PM MARKER MAKER Office Visit [facility] - Rheumatology [address] [place] [address] Gloria Smith MD [address] [place] [phone] documented as of this encounter Visit Diagnoses Not on filedocumented in this encounter Care Teams C D Reactor Operator Relationship Specialty Start Date End Date Tomas Hyman MD [address] [place] [address] PCP - General Family Medicine 12/31/13 05/09/18 Isidro Heredia MD Rheumatology 02/09/11 documented as of this encounter
--- OUTSIDE RECORDS SUMMARY | 2024-05-10 10:27 | XMS_ITS | Encounter Summary ---
Author Organization [facility] Address [address] [facility] [place] [address] Care Team Providers Care Community Relations Representative Name Role Phone Isidro Heredia MD Unavailable [phone] Tomas Hyman MD Primary Care Provider [phone] Reason for Visit * Treatment (Routine) - Closed Specialty Diagnoses / Procedures Referred By Lawrence shah Referred To Contact Infusion Therapy Nurse Diagnoses Rheumatoid arthritis(714.0) ([facility]) Procedures [place] INJECTION TOCILIZUMAB 1 MG Isidro Heredia MD [address] [place] [address] [address] Referral ID Status Reason Start Date Expiration Date Visits Re quested Visits Authorized [id number] Closed 09/29/2014 04/29/2015 1 6 Encounter Details Date Type Department Care Team (Late st Contact Info) Description 10/07/2014 1:54 PM CDT - 10/07/2014 11:59 PM CDT Hospital Encounter [facility] Medical [facility] - Rheumatology [address] [place] [address] Isidro Heredia MD [address] [facility] [place] [address] Discharge Disposition: Home or Self [...] Foreman RN - 10/07/2014 2:20 PM CDT [place] Rheumatology Post Infusion instructions [...] Sunday through 01-02 call the office at [phone] After hours or on the weekend call the exchange at [phone] If you have had lab work done [...] Sig Dispensed Refills Start Date End Date Hhvczrwitfs-Hycvcgols-Xi t C-Mn (GLUCOSAMINE CHONDR 1500 COMPLX PO) [...] 10/07/2014 2:29 PM CDT JOSE Chalino Deng [id number] 10/07/2014 Diagnosis: Rheumatoid arthritis(714.0) [714.0]. Patient questionnaire [...] Info) Description 06/03/2024 1:[address] [facility] - Rheumatology [address] [place] [address] [phone] 06/03/2024 2:00 PM HOUSEPERSON Office Visit [facility] - Rheumatology [address] [place] [address] Gloria Smith MD [address] [place] [phone] documented as of this encounter Visit Diagnoses Diagnosis Rheumatoid arthritis(714.0) ([facility]) Rheumatoid arthritis documented in [...] r documented in this encounter Care Teams Community Relations Representative Relationship Specialty Start Date End Date Tomas Hyamn MD [address] [facility] [address] [place] [address] PCP - General Family Medicine 12/31/13 05/09/18 Isidro Heredia MD Rheumatology 02/09/11 documented as of this encounter
--- OUTSIDE RECORDS SUMMARY | 2024-05-10 10:27 | XMS_ITS | Encounter Summary ---
Author Organization [facility] Address [address] [facility] [place] [address] Care Team Providers Care Gear Machine Operator Name Role Phone Isidro Heredia MD Unavailable [phone] Tomas Hyman MD Primary Care Provider [phone] Reason for Visit * Reason Comments Refill Request Encounter Details Date Type Department Care Team (Late Contact Info) Description 01/25/2014 Refill [facility] - Rheumatology [address] [place] [address] Isidro Heredia MD [address] [place] [address] Refill Request Social History Tobacco Use [...] (Late Contact Info) Description 06/03/2024 1:00 PM HONING MACHINE OPERATOR SEMIAUTOMATIC Appointment [facility] - Rheumatology [address] [place] [address] 06/03/2024 2:00 PM HONING MACHINE OPERATOR SEMIAUTOMATIC Office Visit [facility] Rheumatology [address] [place] [address] Gloria Smith MD [address] [place], [place] [address] [address] documented as of this encounter Visit Diagnoses Not on filedocumented in this encounter Care Teams Gear Machine Operator Relationship Specialty Start Date End Date Tomas Hyman MD [address] [place] [address] PCP - General Family Medicine 12/31/13 05/09/18 Iisdro Heredia MD Rheumatology 02/09/11 documented as of this encounter
--- OUTSIDE RECORDS SUMMARY | 2024-05-10 10:27 | XMS_ITS | Encounter Summary ---
Author Organization [facility] Address [address] [facility] [place] [address] Care Team Providers Care Die Maker Electronic Name Role Phone Isidro Heredia MD Unavailable [phone] Tomas Hyman MD Primary Care Provider [phone] Reason for Visit * Reason Comments Low Back Pain * Evaluate & Treat (Routine) - Closed Specialty Diagnoses / Procedures Referred By Contsarahi t Referred To Contact Neurological Surgery Diagnoses LBP (low back pain) Procedures [place] OFFICE/OUTPT VISIT,JULITO LOPEZ II, Jason E, MD [address] [place] [address] Shade Yao MD [address] [place] [address] Referral ID Status Reason Start Date Expiration Date Visits Re quested Visits Authorized [id number] Closed 06/08/2014 06/08/2015 5 5 Encounter Details Date Type Department Care Team (Latest Contact Info) Description 07/13/2014 11:45 AM CDT Office Visit [facility] [address] [place] [address] [place] [address] Shade Yao MD [address] [place] [phone] Lumbago (Primary Dx); Degeneration of lumbar [...] Pinky Aleman - 07/14/2014 8:21 AM CDT [phone] - [facility] doesn't accept consults * Shade Yao MD [...] st Contact Info) Description 06/03/2024 1:00 PM SKEINER Appointment [facility] - Rheumatology [address] [place] [address] 06/03/2024 2:00 PM SKEINER Office Visit [facility] - Rheumatology [address] [place] [address] Gloria Smith MD [address] [place] [phone] documented as of this encounter Visit Diagnoses Diagnosis Lumbago- Primary Degeneration of lumbar or lumbosacral intervertebral disc documented in this encounter Care Teams Die Maker Electronic Relationship Specialty Start Date End Date Tomas Hyman MD [address] [place] [address] PCP - General Family Medicine 12/31/13 05/09/18 Isidro Heredia MD Rheumatology 02/09/11 documented as of this encounter
--- OUTSIDE RECORDS SUMMARY | 2024-05-10 10:27 | XMS_ITS | Encounter Summary ---
Author Organization [facility] Address [address] [facility] [place] [address] Care Team Providers Care Power Line Lineman Name Role Phone Isidro Heredia MD Unavailable [phone] Tomas Hyman MD Primary Care Provider [phone] Reason for Visit * Reason Comments Follow-up RA; lower joint extr emity pain Pain Back lower back pain * Evaluate & Treat (Routine) - Closed Specialty Diagnoses / Procedures Referred By Contac t Referred To Contact Diagnoses Rheumatoid arthritis(714.0) (HCC) Procedures [place] OFFICE/OUTPT VISIT,UJLITO RODRIGUEZ Jason E, MD [address] [place] [address] Isidro Heredia MD [address] [place] [address] Referral ID Status Reason Start Date Expiration Date Visits Re quested Visits Authorized [id number] Closed 09/09/2014 03/08/2015 5 5 Encounter Details Date Type Department Care Team (Late st Contact Info) Description 11/05/2014 2:30 PM CDT Office Visit [facility] - Rheumatology [address] [place] [address] Isidro Heredia MD [address] [place] [address] Rheumatoid arthritis(714.0) (HCC) (Primary Dx); [...] PO) Take by mouth once daily. ??? Egtyxixiiii-Kgmzbghjf-Bwb C-Mn (GLUCOSAMINE CHONDR 1500 COMPLX PO) Take [...] Description 06/03/2024 1:00 PM STRANDING MACHINE OPERATOR HELPER Appointment [facility] [place] - Rheumatology [address] [place] [address] 06/03/2024 2:00 PM STRANDING MACHINE OPERATOR HELPER Office Visit [facility] [place] - Rheumatology [address] [place] [address] Gloria Smith MD [address] [place] [phone] documented as of this encounter Visit Diagnoses Diagnosis Rheumatoid arthritis(714.0) (HCC)- Primary Rheumatoid arthritis Chronic pain syndrome documented in this encounter Care Teams Power Line Lineman Relationship Specialty Start Date End Date Tomas Hyman MD [address] [facility] [address] [place] [address] PCP - General Family Medicine 12/31/13 05/09/18 Isidro Heredia MD Rheumatology 02/09/11 documented as of this encounter
--- OUTSIDE RECORDS SUMMARY | 2024-05-10 10:27 | XMS_ITS | Encounter Summary ---
Author Organization [facility] Address [address] [facility] [place] [address] Care Team Providers Care Grain Trader Name Role Phone Isidro Heredia MD Unavailable [phone] Tomas Hyman MD Primary Care Provider [phone] Encounter Details Date Type Department Care Team (Late st Contact Info) Description 01/14/2014 Orders Only [facility] Medical [facility] - Rheumatology [address] [place] [address] [id number] Isidro Heredia MD [address] [place] [address] Rheumatoid arthritis (HCC) Social History Tobacco [...] st Contact Info) Description 06/03/2024 1:00 PM AUCTIONEER AUTOMOBILE Appointment [facility] - Rheumatology [address] [place] [address] 06/03/2024 2:00 PM AUCTIONEER AUTOMOBILE Office Visit [facility] - Rheumatology [address] [place] [place] [address] Gloria Smith MD [address] [place] [phone] documented as of this encounter Procedures [...] 6:09 PM CDT Narrative Resulting Agency Comment [facility] ??Formerly [facility] [id number] Isidro Heredia MD LAB - CHEMISTRY ORD ERABLES [facility] INSURANCE BILL * SED RATE WESTERGREN (01/14/2014 4:00 PM CDT) Erythrocyte Sedimentation Rate Westergren 7 0 - 30 mm/hr [facility] INSURANCE BILL Blood specimen (specimen) BLOOD SPECIMEN / Unknown 01/14/2014 4:00 PM CDT 01/14/2014 6:09 PM CDT Narrative Resulting Agency Comment [facility] ??Formerly [facility] [id number] Isidro Heredia MD LAB - HEMATOLOGY OR [...] CDT Narrative Resulting Agency Comment [facility] [address] ??Formerly [facility] [id number] Isidro Heredia MD LAB - HEMATOLOGY OR DERABLES [facility] INSURANCE BILL documented in this encounter Visit Diagnoses Diagnosis Rheumatoid arthritis(714.0) (HCC)- Primary Rheumatoid arthritis documented in this encounter Care Teams Grain Trader Relationship Specialty Start Date End Date Tomas Hyman MD [address] [place] [address] PCP - General Family Medicine 12/31/13 05/09/18 Isidro Heredia MD Rheumatology 02/09/11 documented as of this encounter
--- OUTSIDE RECORDS SUMMARY | 2024-05-10 10:27 | XMS_ITS | Encounter Summary ---
Author Organization [facility] Address [address] [place] [address] Care Team Providers Care Vice President Risk Management Name Role Phone Isidro Heredia MD Unavailable [phone] Tomas Hyman MD Primary Care Provider [phone] Encounter Details Date Type Department Care Team (Latest Contact Info) Description 04/28/2014 9:58 AM OPERATOR MAINTAINER - 04/28/2014 11:59 PM OPERATOR MAINTAINER Hospital Encounter [facility] Pain Care [address] [place] [address] [place] [address] [place] [id number] Discharge Disposition: Home or Self Care Social [...] Comments Blood Pressure 156/97 04/28/2014 10:26 AM OPERATOR MAINTAINER Pulse 97 04/28/2014 10:26 AM OPERATOR MAINTAINER Temperature - - Respiratory Rate 16 04/28/2014 10:26 AM OPERATOR MAINTAINER Oxygen Saturation 97% 04/28/2014 10:26 AM OPERATOR MAINTAINER Inhaled Oxygen Concentration - - Weight - - Height - - Body Mass Index - - documented in this encounter Discharge Instructions * Patient Instructions* Naomi Cain RN - 04/28/2014 10:10 AM OPERATOR MAINTAINER [facility] Procedure Center Pain Discharge Instructions [...] headache, or any other problems, please call [phone] or after hours callDr. Mirza at [phone] and tell them your physician's name. The exchange will alert the physician photovoltaic fabrication technician. If sedation is given: No sedation given. For Your Next Visit: No additional instructions. Other Instructions: May remove band-aid in 12 Hours. Return 2 week follow up. Patient Signature: Date: RN Signature: Date: ATOR MAINTAINER documented in this encounter Medications at Time of Discharge Medication Sig Dispensed Refills Start Date End Date Gcksjylctrr-Oqzojreru-Bs t C-Mn (GLUCOSAMINE CHONDR 1500 COMPLX PO) [...] oxyCODONE-acetaminophen (PERCOCET) 5-325 MG tabletIndications:Rheuma toid arthritis(714.0) ([facility]) Take 1 Tab by mouth [...] 0.9% NaCl 0.9 % 100 mLIndications:Rheumatoid arthritis(714.0) ([facility]) Pt to receive IV infusion [...] Coumidin, Plavix or other blood thinners. Responsible commercial driver is not needed due to the [...] Follow Up: 1 week Alejandro Mirza MD ATOR MAINTAINER documented in this encounter Plan of Treatment Upcoming Encounters Date Type Department Care Team (Late st Contact Info) Description 06/03/2024 1:00 PM OPERATOR MAINTAINER Appointment [facility] - Rheumatology [address] [place] [address] 06/03/2024 2:00 PM OPERATOR MAINTAINER Office Visit [facility] - Rheumatology [address] [place] [address] Gloria Smith MD [address] [place] [phone] documented as of this encounter Procedures Procedure Name Priority Date/Time Associated Diagnosis Comments PAIN MANAGEMENT PROCEDURE TIME Routine 04/28/2014 10:24 AM OPERATOR MAINTAINER Displacement Of Lumbar Intervertebral Disc Without Myelopathy Thoracic or lumbosacral neuritis or radiculitis, unspecified documented in this encounter Results * PAIN MANAGEMENT PROCEDURE TIME (04/28/2014 10:24 AM OPERATOR MAINTAINER) Anatomical Region Laterality Modality X-Ray Angiograph y Narrative 04/28/2014 10:31 AM OPERATOR MAINTAINER Alejandro Mirza MD ? 04/28/2014 10:31 AM [...] Coumidin, Plavix or other blood thinners. ??Responsible commercial driver is not needed due to the [...] Admin. by Other Provider 04/28/2014 10:19 AM OPERATOR MAINTAINER 80 mg documented in this encounter Care Teams Vice President Risk Management Relationship Specialty Start Date End Date Tomas Hyman MD [address] [facility] [address] [place] [address] PCP - General Family Medicine 12/31/13 05/09/18 Isidro Heredia MD Rheumatology 02/09/11 documented as of this encounter
--- OUTSIDE RECORDS SUMMARY | 2024-05-10 10:27 | XMS_ITS | Encounter Summary ---
Author Organization [facility] Address [address] [place] [address] Care Team Providers Care Security Shift Manager Name Role Phone Isidro Heredia MD Unavailable [phone] Tomas Hyman MD Primary Care Provider [phone] Reason for Visit * Treatment (Routine) - Closed Specialty Diagnoses / Procedures Referred By Contsarahi t Referred To Contact Pain Management Diagnoses Displacement of lumbar intervertebral disc without myelopathy Thoracic or lumbosacral neuritis or radiculitis, unspecified Procedures AL INJ,FORAMEN,L/S,1 LEVEL AL INJ,FORAMEN,L/S,[place] [address] [address] [facility] Pain Care [address] [place] [address] Referral ID Status Reason Start Date Expiration Date Visits Re quested Visits Authorized [id number] Closed 03/10/2014 09/06/2014 6 6 Encounter Details Date Type Department Care Team (Latest Contact Info) Description 04/14/2014 9:45 AM POLO COACH - 04/14/2014 9:48 AM POLO COACH Hospital Encounter [facility] Pain Care [address] [place] [address] [place] [address] [place] [id number] Discharge Disposition: Home or Self Care Social [...] Sig Dispensed Refills Start Date End Date Xtklgrjhwdv-Axeoqmmwo-Zk t C-Mn (GLUCOSAMINE CHONDR 1500 COMPLX PO) [...] 5-325 MG tabletIndications:Rheuma toid arthritis(714.0) ([facility]) Take 1 Tab by mouth every 6 [...] st Contact Info) Description 06/03/2024 1:00 PM POLO COACH Appointment [facility] - Rheumatology [address] [place] [address] [phone] 06/03/2024 2:00 PM POLO COACH Office Visit [facility] - Rheumatology [address] [place] [address] [phone] Gloria Smith MD [address] [place] [phone] documented as of this encounter Visit Diagnoses Not on filedocumented in this encounter Care Teams Security Shift Manager Relationship Specialty Start Date End Date Tomas Hyman MD [address] [facility] [address] [place] [address] PCP - General Family Medicine 12/31/13 05/09/18 Isidro Heredia MD Rheumatology 02/09/11 documented as of this encounter
--- OUTSIDE RECORDS SUMMARY | 2024-05-10 10:27 | XMS_ITS | Encounter Summary ---
Author Organization [facility] Address [address] [facility] [place] [address] Care Team Providers Care Ad Operations Coordinator Name Role Phone Isidro Heredia MD Unavailable [phone] Tomas Hyman MD Primary Care Provider [phone] Reason for Visit * Reason Comments Pain Back lower back; aching Pain Knee bilat knee pain;achi ng;swelling * Evaluate & Treat (Routine) - Closed Specialty Diagnoses / Procedures Referred By Lawrence t Referred To Contact Diagnoses Rheumatoid arthritis(714.0) (HCC) Procedures LA OFFICE VISIT DURING HOURS Tomas Hyman MD [address] [place] [address] Isidro Heredia MD [address] [place] [address] Referral ID Status Reason Start Date Expiration Date Visits Re quested Visits Authorized [id number] Closed 08/12/2014 02/08/2015 3 3 Encounter Details Date Type Department Care Team (Late st Contact Info) Description 10/07/2014 2:15 PM CDT Office Visit [facility] [employer] [facility] - Rheumatology [address] [place] [address] Isidro Heredia MD [address] [facility] [place] [address] Rheumatoid arthritis(714.0) (HCC) (Primary Dx); [...] PO) Take by mouth once daily. ??? Adheywqsvha-Cdhsnwnmo-Nnz C-Mn (GLUCOSAMINE CHONDR 1500 COMPLX PO) Take [...] Contact Info) Description 06/03/2024 1:00 PM FLOOR AND WALL APPLIER LIQUID Appointment [facility] - Rheumatology [address] [place] [address] [phone] 06/03/2024 2:00 PM FLOOR AND WALL APPLIER LIQUID Office Visit [facility] - Rheumatology [address] [place] [address] Gloria Smith MD [address] [place] [phone] documented as of this encounter Visit Diagnoses Diagnosis Rheumatoid arthritis(714.0) ([facility])- Primary Rheumatoid arthritis Chronic pain syndrome documented in this encounter Care Teams Ad Operations Coordinator Relationship Specialty Start Date End Date Tomas Hyman MD [address] [facility] [address] [place] [address] PCP - General Family Medicine 12/31/13 05/09/18 Isidro Heredia MD Rheumatology 02/09/11 documented as of this encounter
--- OUTSIDE RECORDS SUMMARY | 2024-05-10 10:27 | XMS_ITS | Encounter Summary ---
Author Organization [facility] Address [address] [facility] [place] [address] Care Team Providers Care Frame Expander Name Role Phone Isidro Heredia MD Unavailable [phone] Tomas Hyman MD Primary Care Provider [phone] Reason for Visit * Reason Onset Date Comments Follow-up 07/07/2014 Encounter Details Date Type Department Care Team (Late st Contact Info) Description 07/07/2014 Telephone [facility] - Rheumatology [address] [place] [address] Isidro Heredia MD [address] [place] [address] Follow-up Social History Tobacco Use Types [...] st Contact Info) Description 06/03/2024 1:00 PM SUGAR PRESSER Appointment [facility] - Rheumatology [address] [place] [address] 06/03/2024 2:00 PM SUGAR PRESSER Office Visit [facility] - Rheumatology [address] [place] [address] Gloria Smith MD [address] [place] [phone] documented as of this encounter Visit Diagnoses Not on filedocumented in this encounter Care Teams Frame Expander Relationship Specialty Start Date End Date Tomas Hyman MD [address] [place] [address] PCP - General Family Medicine 12/31/13 05/09/18 Isidro Heredia MD Rheumatology 02/09/11 documented as of this encounter
--- OUTSIDE RECORDS SUMMARY | 2024-05-10 10:27 | XMS_ITS | Encounter Summary ---
Author Organization [facility] Address [address] [facility] [place] [address] Care Team Providers Care Non Acoustic Operator Name Role Phone Isidro Heredia MD Unavailable [phone] Tomas Hyman MD Primary Care Provider [phone] Reason for Visit * Reason Comments Arthritis Encounter Details Date Type Department Care Team (Latest Contact Info) Description 02/12/2014 2:00 PM CDT Procedure visit [facility] Family Medicine [address] [place] [address] Rheumatoid arthritis (HCC) Social History Tobacco Use [...] Contact Info) Description 06/03/2024 1:00 PM HOT BALLER Appointment [facility] - Rheumatology [address] [place] [address] 06/03/2024 2:00 PM HOT BALLER Office Visit [facility] - Rheumatology [address] [place], [place] [phone] Gloria Smith MD [address] [place] [phone] documented as of this encounter Procedures Procedure [...] arthritis documented in this encounter Care Teams Non Acoustic Operator Relationship Specialty Start Date End Date Tomas Hyman MD [address] [facility] [address] [place] [address] PCP - General Family Medicine 12/31/13 05/09/18 Isidro Heredia MD Rheumatology 02/09/11 documented as of this encounter
--- OUTSIDE RECORDS SUMMARY | 2024-05-10 10:27 | XMS_ITS | Encounter Summary ---
Author Organization [facility] Address [address] [facility] [address] Care Team Providers Care Finisher Denture Name Role Phone Isidro Heredia MD Unavailable [phone] Tomas Hyman MD Primary Care Provider [phone] Reason for Visit * Treatment (Routine) - Closed Specialty Diagnoses / Procedures Referred By Lawrence shah Referred To Contact Infusion Therapy Nurse Diagnoses Rheumatoid arthritis(714.0) ([facility]) Procedures SC INJECTION TOCILIZUMAB 1 MG Isidro Heredia MD [address] [place] [address] [phone] Referral ID Status Reason Start Date Expiration Date Visits Re quested Visits Authorized [id number] Closed 05/08/2014 10/05/2014 1 6 Encounter Details Date Type Department Care Team (Late st Contact Info) Description 05/11/2014 8:58 AM FOUR SLIDE MACHINE OPERATOR - 05/11/2014 11:59 PM FOUR SLIDE MACHINE OPERATOR Hospital Encounter [facility] Medical [facility] - Rheumatology [address] [place] [address] Isidro Heredia MD [address] [place] [address] Discharge Disposition: Home or Self [...] Comments Blood Pressure 165/100 05/11/2014 9:22 AM FOUR SLIDE MACHINE OPERATOR Pulse 84 05/11/2014 9:22 AM FOUR SLIDE MACHINE OPERATOR Temperature 36.9 ??C (98.5 ??F) 05/11/2014 9:22 AM CS T Respiratory Rate 16 05/11/2014 9:22 AM FOUR SLIDE MACHINE OPERATOR Oxygen Saturation - - Inhaled Oxygen Concentration - - Weight 117.9 kg (260 lb) 05/11/2014 9:22 AM FOUR SLIDE MACHINE OPERATOR Height 177.8 cm (5' 10 ) 05/11/2014 9:22 AM FOUR SLIDE MACHINE OPERATOR Body Mass Index 37.31 05/11/2014 9:22 AM FOUR SLIDE MACHINE OPERATOR documented in this encounter Discharge Instructions * Discharge Instructions* Mirela Rodrigez RN - 05/11/2014 9:38 AM FOUR SLIDE MACHINE OPERATOR [place] Rheumatology Post Infusion instructions You have [...] Sunday through 01-02 call the office at [phone] After hours or on the weekend call the exchange at [phone] If you have had lab work done [...] [facility] as [facility] provider. Mirela Rodrigez RN SLIDE MACHINE OPERATOR documented in this encounter Medications at Time of Discharge Medication Sig Dispensed Refills Start Date End Date Yynwytlwtdw-Svskkyfat-Fl t C-Mn (GLUCOSAMINE CHONDR 1500 COMPLX PO) [...] the plan and thankedme for my concern. SLIDE MACHINE OPERATOR * Mirela Rodrigez RN - 05/11/2014 9:34 AM CST JOSE Deng [id number] 05/11/2014 Pt denies symptoms of infection or [...] Next treatment? 4 weeks Mirela Rodrigez RN SLIDE MACHINE OPERATOR documented in this encounter Plan of Treatment Upcoming Encounters Date Type Department Care Team (Late st Contact Info) Description 06/03/2024 1:00 PM FOUR SLIDE MACHINE OPERATOR Appointment [facility] - Rheumatology [address] [place] [address] 06/03/2024 2:00 PM FOUR SLIDE MACHINE OPERATOR Office Visit [facility] - Rheumatology [address] [place] [address] Gloria Smith MD [address] [place] [phone] documented as of this encounter Visit [...] 0830, 2 vials used of Actemra 400MG [facility] 93825-460-18 with 0 WASTE $ Given 05/11/2014 9:32 AM FOUR SLIDE MACHINE OPERATOR 800 mg 140 m L/hr documented in this encounter Care Teams Finisher Denture Relationship Specialty Start Date End Date Tomas Hyman MD [address] [facility] [address] [place] [address] PCP - General Family Medicine 12/31/13 05/09/18 Isidro Heredia MD Rheumatology 02/09/11 documented as of this encounter
--- OUTSIDE RECORDS SUMMARY | 2024-05-10 10:27 | XMS_ITS | Encounter Summary ---
Author Organization [facility] Address [address] [place] [address] Care Team Providers Care Publishing Director Name Role Phone Isidro Heredia MD Unavailable [phone] Tomas Hyman MD Primary Care Provider [phone] Reason for Visit * Oncology Prior Authorization - Closed Specialty Diagnoses / Procedures Referred By Contsarahi t Referred To Contact Infusion Therapy Nurse Diagnoses Rheumatoid arthritis(714.0) ([facility]) Procedures AK INJECTION TOCILIZUMAB 1 MG Isidro Heredia MD [address] [place] [address] [phone] Referral ID Status Reason Start Date Expiration Date Visits Re quested Visits Authorized [id number] Closed 05/01/2013 04/29/2014 1 12 Encounter Details Date Type Department Care Team (Late st Contact Info) Description 02/12/2014 1:44 PM CDT - 02/12/2014 11:59 PM CDT Hospital Encounter [facility] Medical [facility] - Rheumatology [address] [place] [address] Isidro Heredia MD [address] [facility] [address] Discharge Disposition: Home or Self [...] Sunday through 01-02 call the office at [phone] After hours or on the weekend call the exchange at [phone] If you have had lab work done [...] Sig Dispensed Refills Start Date End Date Govqlefzaod-Zvqiwqvjq-Sj t C-Mn (GLUCOSAMINE CHONDR 1500 COMPLX PO) [...] 0.9% NaCl 0.9 % 100 mLIndications:Rheumatoid arthritis(714.0) ([facility]) Pt to receive IV infusion 800mg Actemra/100cc0.9%norm al saline, per nasir Avila's office practice of Actemra 8mg/kg over 60 minutes and the Actemra schedule; first dose, then every 4 weeks thereafter, unless further orders received from . Exp 09/04/2014 09/04/2013 09/04/2014 documented as of this encounter Progress Notes * Carlos Foreman RN - 02/12/2014 3:15 PM CDT JOSE Deng [id number] 02/12/2014 Diagnosis: Rheumatoid arthritis [714.0]. Patient questionnaire [...] st Contact Info) Description 06/03/2024 1:00 PM GAMEWELL OPERATOR Appointment [facility] - Rheumatology [address] [place] [address] 06/03/2024 2:00 PM GAMEWELL OPERATOR Office Visit [facility] - Rheumatology [address] [place] [address], [place] [address] Gloria Smith MD [address] [place] [phone] documented as of this encounter Visit Diagnoses [...] 0945, 2 vials used of Actemra 400MG [facility] 96222-536-12 with 0 WASTE $ Given 02/12/2014 3:10 PM CDT 800 mg 100 m L/hr documented in this encounter Care Teams Publishing Director Relationship Specialty Start Date End Date Tomas Hyman MD [address] [facility] [address] [place] [address] PCP - General Family Medicine 12/31/13 05/09/18 Isidro Heredia MD Rheumatology 02/09/11 documented as of this encounter
--- OUTSIDE RECORDS SUMMARY | 2024-05-10 10:27 | XMS_ITS | Encounter Summary ---
Author Organization [facility] Address [address] [facility] [place] [address] Care Team Providers Care Mining Machinery Assembler Name Role Phone Isidro Heredia MD Unavailable Tomas Hyman MD Primary Care Provider [phone] Reason for Visit * Treatment (Routine) - Closed Specialty Diagnoses / Procedures Referred By Contsarahi t Referred To Contact Pain Management Diagnoses Displacement of lumbar intervertebral disc without myelopathy Thoracic or lumbosacral neuritis or radiculitis, unspecified Procedures DE INJ,FORAMEN,L/S,1 LEVEL DE INJ,FORAMEN,L/S,[place] [address] [address] [facility] Pain Care [address] [place] [address] Referral ID Status Reason Start Date Expiration Date Visits Re quested Visits Authorized [id number] Closed 03/10/2014 09/06/2014 6 6 Encounter Details Date Type Department Care Team (Latest Contact Info) Description 03/17/2014 9:09 AM OPTOMETRIST Hospital Encounter [facility] Pain Care [address] [place] [address] [place] [address] [address] Discharge Disposition: Home or Self [...] Sig Dispensed Refills Start Date End Date Rlbuxlkeyos-Cuajftssg-Xf t C-Mn (GLUCOSAMINE CHONDR 1500 COMPLX PO) [...] st Contact Info) Description 06/03/2024 1:00 PM OPTOMETRIST Appointment [facility] - Rheumatology [address] [place] [address] [phone] 06/03/2024 2:00 PM OPTOMETRIST Office Visit [facility] - Rheumatology [address] [place] [address] [phone] Gloria Smith MD [address] [place] [phone] documented as of this encounter Visit Diagnoses Not on filedocumented in this encounter Care Teams Mining Machinery Assembler Relationship Specialty Start Date End Date Tomas Hyman MD [address] [facility] [address] [place] [address] PCP - General Family Medicine 12/31/13 05/09/18 Isidro Heredia MD Rheumatology 02/09/11 documented as of this encounter
--- OUTSIDE RECORDS SUMMARY | 2024-05-10 10:27 | XMS_ITS | Encounter Summary ---
Author Organization [facility] Address [address] [facility] [place] [address] Care Team Providers Care Oracle Financial Application Developer Name Role Phone Isidro Doll MD Unavailable [phone] Tomas Hyman MD Primary Care Provider [phone] Reason for Visit * Reason Onset Date Comments Referral Request 02/17/2014 Encounter Details Date Type Department Care Team (Late st Contact Info) Description 02/17/2014 Telephone [facility] - Rheumatology [address] [place] [address] Isidro Doll MD [address] [place] [address] Referral Request Social History Tobacco Use [...] CDT SPECIALIST: dr christian phillips NPI(OPTIONAL): PHONE: [id number] FAX: [phone] DIAGNOSIS/CODE: eval for back and leg pain APPT DATE: 02/19/14 INSURANCE: [employer] ID #: [id number] documented in this encounter Plan of Treatment Upcoming Encounters Date Type Department Care Team (Late st Contact Info) Description 06/03/2024 1:00 PM WINDER FIXER Appointment [facility] - Rheumatology [address] [place] [address] [phone] 06/03/2024 2:00 PM WINDER FIXER Office Visit [facility] - Rheumatology [address] [place] [address] [phone] Gloria Smith MD [address] [place] [address] [phone] documented as of this encounter Visit Diagnoses Not on filedocumented in this encounter Care Teams Oracle Financial Application Developer Relationship Specialty Start Date End Date Tomas Hyman MD [address] [facility] [address] [place] [address] PCP - General Family Medicine 12/31/13 05/09/18 Isidro Doll MD Rheumatology 02/09/11 documented as of this encounter
--- OUTSIDE RECORDS SUMMARY | 2024-05-10 10:27 | XMS_ITS | Encounter Summary ---
Author Organization [facility] Address [address] [place] [address] Care Team Providers Care Experimental Machinist Name Role Phone Isidro Heredia MD Unavailable [phone] Tomas Hyman MD Primary Care Provider [phone] Encounter Details Date Type Department Care Team (Latest Contact Info) Description 03/24/2014 10:24 AM FUEL BUYER - 03/24/2014 11:59 PM FUEL BUYER Hospital Encounter [facility] Pain Care [address] [place] [address] [place] [address] [place] [phone] Discharge Disposition: Home or Self Care Social [...] Comments Blood Pressure 150/88 03/24/2014 11:20 AM FUEL BUYER Pulse 97 03/24/2014 11:20 AM FUEL BUYER Temperature - - Respiratory Rate 16 03/24/2014 11:20 AM FUEL BUYER Oxygen Saturation 97% 03/24/2014 11:20 AM FUEL BUYER Inhaled Oxygen Concentration - - Weight - - Height - - Body Mass Index - - documented in this encounter Discharge Instructions * Patient Instructions* Nena Pond RN - 03/24/2014 10:39 AM FUEL BUYER [facility] Procedure Center Pain Discharge Instructions [...] headache, or any other problems, please call [phone] or after hours callDr. Mirza at [phone] and tell them your physician's name. The exchange will alert the physician offset second press operator. If sedation is given: No sedation given. For Your Next Visit: No additional instructions. Other Instructions: May remove band-aid in 12 Hours. Return in two weeks for follow up. Patient Signature: Date: RN Signature: Date: BUYER documented in this encounter Medications at Time of Discharge Medication Sig Dispensed Refills Start Date End Date Chtagtpdeeo-Phdnenkqi-Be t C-Mn (GLUCOSAMINE CHONDR 1500 COMPLX PO) [...] (PERCOCET) 5-325 MG tabletIndications:Rheuma toid arthritis(714.0) ([facility]) Take 1 Tab by mouth [...] identified, and marked by Dr. Mirza. Responsible wood pile driver operator is not needed due [...] Add Levels Lumb/Sac, Fluoro. Alejandro Mirza MD BUYER documented in this encounter Plan of Treatment Upcoming Encounters Date Type Department Care Team (Late st Contact Info) Description 06/03/2024 1:00 PM FUEL BUYER Appointment [facility] - Rheumatology [address] [place] [address] [phone] 06/03/2024 2:00 PM FUEL BUYER Office Visit [facility] - Rheumatology [address] [place] [address] Gloria Smith MD [address] [place] [phone] documented as of this encounter Procedures Procedure Name Priority Date/Time Associated Diagnosis Comments PAIN MANAGEMENT PROCEDURE TIME Routine 03/24/2014 11:17 AM FUEL BUYER Displacement Of Lumbar Intervertebral Disc Without Myelopathy Thoracic or lumbosacral neuritis or radiculitis, unspecified documented in this encounter Results * PAIN MANAGEMENT PROCEDURE TIME (03/24/2014 11:17 AM FUEL BUYER) Anatomical Region Laterality Modality X-Ray Angiograph y Narrative 03/24/2014 11:38 AM FUEL BUYER Alejandro Mirza MD ? 03/24/2014 11:38 AM [...] identified, and marked by Dr. Mirza. ??Responsible wood pile driver operator is not needed due [...] Admin. by Other Provider 03/24/2014 11:03 AM FUEL BUYER 10 mg documented in this encounter Care Teams Experimental Machinist Relationship Specialty Start Date End Date Tomas Hyman MD [address] [facility] [address] [place] [address] PCP - General Family Medicine 12/31/13 05/09/18 Isidro Heredia MD Rheumatology 02/09/11 documented as of this encounter
--- OUTSIDE RECORDS SUMMARY | 2024-05-10 10:27 | XMS_ITS | Encounter Summary ---
Author Organization [facility] Address [address] [place] [address] Care Team Providers Care Hoop Punch Operator Helper Name Role Phone Isidro Heredia MD Unavailable [phone] Tomas Hyman MD Primary Care Provider [phone] Reason for Visit * Reason Onset Date Comments Follow-up 01/05/2014 Encounter Details Date Type Department Care Team (Late st Contact Info) Description 01/05/2014 Telephone [facility] - Rheumatology [address] [place] [address] Isidro Heredia MD [address] [place] [phone] Follow-up Social History Tobacco Use Types [...] st Contact Info) Description 06/03/2024 1:00 PM POCKET ASSEMBLER Appointment [facility] - Rheumatology [address] [place] [address] 06/03/2024 2:00 PM POCKET ASSEMBLER Office Visit [facility] - Rheumatology [address] [place] [address] Gloria Smith MD [address] [place] [address] [phone] documented as of this encounter Visit Diagnoses Not on filedocumented in this encounter Care Teams Hoop Punch Operator Helper Relationship Specialty Start Date End Date Tomas Hyman MD [address] [facility] [address] [place] [address] PCP - General Family Medicine 12/31/13 05/09/18 Isidro Heredia MD Rheumatology 02/09/11 documented as of this encounter
--- OUTSIDE RECORDS SUMMARY | 2024-05-10 10:27 | XMS_ITS | Encounter Summary ---
Author Organization [facility] Address [address] [facility] [place] [address] Care Team Providers Care Captain Fishing Vessel Name Role Phone Isidro Heredia MD Unavailable [phone] Tomas Hyman MD Primary Care Provider [phone] Reason for Visit * Reason Comments Rheumatoid Arthritis * Consult, Test & Treat (Routine) - Closed Specialty Diagnoses / Procedures Referred By Lawrence t Referred To Contact Diagnoses Rheumatoid arthritis(714.0) (HCC) Procedures OR OFFICE VISIT DURING HOURS Nolberto Nicole MD [address] [place] [address] Isidro Heredia MD [address] [place] [address] Referral ID Status Reason Start Date Expiration Date Visits Re quested Visits Authorized [id number] Closed 09/30/2013 03/28/2014 1 6 Encounter Details Date Type Department Care Team (Late st Contact Info) Description 01/14/2014 2:30 PM CDT Office Visit [facility] - Rheumatology [address] [place] [address] Isidro Heredia MD [address] [place] [address] Rheumatoid arthritis (HCC) (Primary Dx); [...] PO) Take by mouth once daily. ??? Dhbylqdswor-Spmijcnct-Nsh C-Mn (GLUCOSAMINE CHONDR 1500 COMPLX PO) Take [...] Info) Description 06/03/2024 1:00 PM MANAGER OF OPERATIONS Appointment [facility] - Rheumatology [address] [place] [address] 06/03/2024 2:00 PM MANAGER OF OPERATIONS Office Visit [facility] - Rheumatology [address] [place] [address] Gloria Smith MD [address] [place] [address] [phone] documented as of this encounter Visit Diagnoses Diagnosis Rheumatoid arthritis(714.0) (HCC)- Primary Rheumatoid arthritis Chronic pain syndrome documented in this encounter Care Teams Captain Fishing Vessel Relationship Specialty Start Date End Date Tomas Hyman MD [address] [place] [address] PCP - General Family Medicine 12/31/13 05/09/18 Isidro Heredia MD Rheumatology 02/09/11 documented as of this encounter
--- OUTSIDE RECORDS SUMMARY | 2024-05-10 10:27 | XMS_ITS | Encounter Summary ---
Author Organization [facility] Address [address] [facility] [place] [address] Care Team Providers Care Polysomnography Technologist Name Role Phone Isidro Heredia MD Unavailable [phone] Tomas Hyman MD Primary Care Provider [phone] Reason for Visit * Treatment (Routine) - Closed Specialty Diagnoses / Procedures Referred By Contsarahi t Referred To Contact Pain Management Diagnoses Displacement of lumbar intervertebral disc without myelopathy Thoracic or lumbosacral neuritis or radiculitis, unspecified Procedures MO INJ,FORAMEN,L/S,1 LEVEL [place] INJ,FORAMEN,L/S,[place] [address] [address] [facility] Pain Care [address] [place] [address] Referral ID Status Reason Start Date Expiration Date Visits Re quested Visits Authorized [id number] Closed 03/10/2014 09/06/2014 6 6 Encounter Details Date Type Department Care Team (Latest Contact Info) Description 04/28/2014 9:57 AM COMMUNITY SERVICE DIRECTOR Hospital Encounter [facility] Pain Care [address] [place] [address] [place] [address] [address] Discharge Disposition: Home or [...] Sig Dispensed Refills Start Date End Date Tzddrceqzqf-Sdtqslzqr-Av t C-Mn (GLUCOSAMINE CHONDR 1500 COMPLX PO) [...] Contact Info) Description 06/03/2024 1:00 PM COMMUNITY SERVICE DIRECTOR Appointment [facility] - Rheumatology [address] [place] [address] [phone] 06/03/2024 2:00 PM COMMUNITY SERVICE DIRECTOR Office Visit [facility] - Rheumatology [address] [place] [address] [phone] Gloria Smith MD [address] [place] [address] [phone] documented as of this encounter Visit Diagnoses Not on filedocumented in this encounter Care Teams Polysomnography Technologist Relationship Specialty Start Date End Date Tomas Hyman MD [address] [facility] [address] [place] [address] PCP - General Family Medicine 12/31/13 05/09/18 Isidro Heredia MD Rheumatology 02/09/11 documented as of this encounter
--- OUTSIDE RECORDS SUMMARY | 2024-05-10 10:27 | XMS_ITS | Encounter Summary ---
Author Organization [facility] Address [address] [place] [address] Care Team Providers Care Wild Life Photographer Name Role Phone Hitesh Solis MD Unavailable Tomas Hyman MD Primary Care Provider Reason for Referral * Evaluate & Treat - Closed Specialty Diagnoses / Procedures Referred By Lawrence shah Referred To Contact Diagnoses Lumbar radiculopathy Hitesh Solis MD [address] [place] [address] [place] [address] [address] Referral ID Status Reason Start Date Expiration Date V isits Requested Visits Authorized [id number] Closed Specialty Services Required 02/25/2014 02/25/2015 6 6 Reason for Visit * Reason Comments Rheumatoid Arthritis Pain Joint upper and lower extr emities * Evaluate & Treat (Routine) - Closed Specialty Diagnoses / Procedures Referred By Lawrence shah Referred To Contact Diagnoses Rheumatoid arthritis(714.0) ([facility]) Procedures [place] OFFICE VISIT DURING HOURS Tomas Hyman MD [address] [facility] [address] [place] [address] Hitesh Solis MD [address] [place] [address] Referral ID Status Reason Start Date Expiration Date Visits Re quested Visits Authorized [id number] Closed 02/10/2014 02/10/2015 6 6 Encounter Details Date Type Department Care Team (Late st Contact Info) Description 02/12/2014 2:00 PM CDT Office Visit [facility] - Rheumatology [address] [place] [address] Hitesh Solis MD [address] [place] [address] ZOHAIB ESPINO [address] Rheumatoid arthritis (HCC) (Primary Dx); Chronic pain [...] PO) Take by mouth once daily. ??? Jwapujljajd-Ocbqocozw-Qoe C-Mn (GLUCOSAMINE CHONDR 1500 COMPLX PO) Take [...] st Contact Info) Description 06/03/2024 1:00 PM CUSTOM LEATHER PRODUCTS MAKER Appointment [facility] - Rheumatology [address] [place] [address] 06/03/2024 2:00 PM CUSTOM LEATHER PRODUCTS MAKER Office Visit [facility] - Rheumatology [address] [place] [address] Gloria Smith MD [address] [place] [phone] Scheduled Referrals Name Type Priority Associated [...] Visit Diagnoses Diagnosis Rheumatoid arthritis(714.0) ([facility])- Primary Rheumatoid arthritis Chronic pain syndrome Lumbar radiculopathy Thoracic or lumbosacral neuritis or radiculitis, unspecified Rheumatoid arthritis(714.0) ([facility])- Primary Rheumatoid arthritis documented in this encounter Care Teams Wild Life Photographer Relationship Specialty Start Date End Date Tomas Hymna MD [address] [facility] [address] [place] [address] PCP - General Family Medicine 12/31/13 05/09/18 Hitesh Solis MD Rheumatology 02/09/11 documented as of this encounter
--- OUTSIDE RECORDS SUMMARY | 2024-05-10 10:27 | XMS_ITS | Encounter Summary ---
Author Organization [facility] Address [address] [facility] [place] [address] Care Team Providers Care Python Programmer Name Role Phone Isidro Heredia MD Unavailable [phone] Tomas Hyman MD Primary Care Provider [phone] Reason for Visit * Reason Comments Rheumatoid Arthritis Lower Extremity Problem right hip pain r adiates down right leg into foot * Consult, Test & Treat (Routine) - Closed Specialty Diagnoses / Procedures Referred By Contac t Referred To Contact Diagnoses Rheumatoid arthritis(714.0) ([facility]) Procedures [place] OFFICE VISIT DURING HOURS Nolberto Nicole MD [address] [place] [address] Isidro Heredia MD [address] [place] [address] Referral ID Status Reason Start Date Expiration Date Visits Re quested Visits Authorized [id number] Closed 09/30/2013 03/28/2014 1 6 Encounter Details Date Type Department Care Team (Late st Contact Info) Description 12/31/2013 11:00 AM CDT Office Visit [facility] - Rheumatology [address] [place] [address] Isidro Heredia MD [address] [place] [address] Chronic pain syndrome (Primary Dx); [...] PO) Take by mouth once daily. ??? Btpvqfwxoth-Vpedjrsgw-Het C-Mn (GLUCOSAMINE CHONDR 1500 COMPLX PO) Take [...] Contact Info) Description 06/03/2024 1:00 PM FAMILY SERVICES COORDINATOR Appointment [facility] - Rheumatology [address] [place] [address] [phone] 06/03/2024 2:00 PM FAMILY SERVICES COORDINATOR Office Visit [facility] - Rheumatology [address] [place] [address] [phone] Gloria Smith MD [address] [place] [address] [phone] documented as of this encounter Results * XR LUMBAR SPINE 2 OR 3 VW (01/06/2014 2:02 PM CDT) Anatomical Region Laterality Modality Spine Other Narrative 01/06/2014 2:02 PM CDT Isidro Heerdia MD ? 01/06/2014 ??2:02 PM Xrays Lumbar spine: Loss of lordotic curve. No other significant abnormalities Isidro Hereida MD DIAGNOSTIC IMAGING ORDERABLES documented in this encounter Visit Diagnoses Diagnosis Chronic pain syndrome- Primary Rheumatoid arthritis(714.0) ([facility]) Rheumatoid arthritis Lumbar radiculopathy Thoracic or lumbosacral neuritis or radiculitis, unspecified Lumbar radiculopathy- Primary Thoracic or lumbosacral neuritis or radiculitis, unspecified documented in this encounter Care Teams Python Programmer Relationship Specialty Start Date End Date Tomas Hyman MD [address] [facility] [address] [place] [address] PCP - General Family Medicine 12/31/13 05/09/18 Isidro Heredia MD Rheumatology 02/09/11 documented as of this encounter
--- OUTSIDE RECORDS SUMMARY | 2024-05-10 10:27 | XMS_ITS | Encounter Summary ---
Author Organization [facility] Address [address] [facility] [place] [address] Care Team Providers Care Cardiac Rehabilitation Specialist Name Role Phone Isidro Heredia MD Unavailable Tomas Hyman MD Primary Care Provider [phone] Reason for Visit * Treatment (Routine) - Closed Specialty Diagnoses / Procedures Referred By Lawrence shah Referred To Contact Infusion Therapy Nurse Diagnoses Rheumatoid arthritis(714.0) ([facility]) Procedures [place] INJECTION TOCILIZUMAB 1 MG Isidro Heredia MD [address] [place] [address] [phone] Referral ID Status Reason Start Date Expiration Date Visits Re quested Visits Authorized [id number] Closed 05/08/2014 10/05/2014 1 6 Encounter Details Date Type Department Care Team (Late st Contact Info) Description 09/09/2014 2:30 PM CDT - 09/09/2014 11:59 PM CDT Hospital Encounter [facility] - Rheumatology [address] [place] [address] Isidro Heredia MD [address] [facility], [place] [address] Discharge Disposition: Home or Self [...] Foreman, RN - 09/09/2014 3:07 PM CDT [place] Rheumatology Post Infusion instructions You [...] through Sunday 9-5 call the office at [phone] After hours or on the weekend call the exchange at [phone] If you have had lab work done [...] Sig Dispensed Refills Start Date End Date Bkxplrufdst-Ykjcsnzry-Ui t C-Mn (GLUCOSAMINE CHONDR 1500 COMPLX PO) [...] - 09/09/2014 2:51 PM CDT JOSE Deng [id number] 09/09/2014 Diagnosis: Rheumatoid arthritis [714.0]. Patient questionnaire [...] Contact Info) Description 06/03/2024 1:00 PM RAILROAD SIGNAL TECHNICIAN Appointment [facility] - Rheumatology [address] [place] [address] [phone] 06/03/2024 2:00 PM RAILROAD SIGNAL TECHNICIAN Office Visit [facility] - Rheumatology [address] [place] [address] Gloria Smith MD [address] [place] [phone] documented as of this encounter Visit Diagnoses [...] Hand documented in this encounter Care Teams Cardiac Rehabilitation Specialist Relationship Specialty Start Date End Date Tomas Hyman MD [address] [facility] [address] [place] [address] PCP - General Family Medicine 12/31/13 05/09/18 Isidro Heredia MD Rheumatology 02/09/11 documented as of this encounter
--- OUTSIDE RECORDS SUMMARY | 2024-05-10 10:27 | XMS_ITS | Encounter Summary ---
Author Organization [facility] Address [address] [place] [address] Care Team Providers Care Public Welfare Worker Name Role Phone Isidro Heredia MD Unavailable [phone] Tomas Hyman MD Primary Care Provider Reason for Visit * Reason Comments Pain Knee right Pain Back lower back Pain Hand obdulia hands, swollen a nd hot feeling Pain Muscle upper and lower extr emeties * Evaluate & Treat (Routine) - Closed Specialty Diagnoses / Procedures Referred By Contsarahi t Referred To Contact Diagnoses Rheumatoid arthritis(714.0) ([facility]) Procedures IN OFFICE VISIT DURING HOURS Tomas Hyman MD [address] [place] [address] Isidro Heredia MD [address] [place] [address] Referral ID Status Reason Start Date Expiration Date Visits Re quested Visits Authorized [id number] Closed 08/12/2014 02/08/2015 3 3 Encounter Details Date Type Department Care Team (Late st Contact Info) Description 08/12/2014 11:15 AM CDT Office Visit [facility] - Rheumatology [address] [place] [address] Isidro Heredia MD [address] [place] [address] Rheumatoid arthritis(714.0) (HCC) (Primary Dx) [...] PO) Take by mouth once daily. ??? Giofcjntsul-Ukmiyqjzb-Uqa C-Mn (GLUCOSAMINE CHONDR 1500 COMPLX PO) Take [...] st Contact Info) Description 06/03/2024 1:00 PM WORKERS COMPENSATION COORDINATOR Appointment [facility] - Rheumatology [address] [place] [address] 06/03/2024 2:00 PM WORKERS COMPENSATION COORDINATOR Office Visit [facility] - Rheumatology [address] [place] [address] Gloria Smith MD [address] [place] [phone] documented as of this encounter Procedures Procedure [...] 6:39 PM CDT Narrative Resulting Agency Comment [facility] [address] ??[facility] [phone] Isidro Heredia MD LAB - CHEMISTRY ORD ERABLES Performing Organization Address City/[facility]/ZIP Co de Phone Number [facility] INSURANCE BILL * SED RATE WESTERGREN (08/12/2014 2:08 PM CDT) Erythrocyte Sedimentation Rate Westergren 13 0 - 30 mm/hr [facility] INSURANCE BILL Blood specimen (specimen) BLOOD SPECIMEN / Unknown 08/12/2014 2:08 PM CDT 08/12/2014 6:39 PM CDT Narrative Resulting Agency Comment [facility] [address] ??[facility] [phone] Isidro Heredia MD LAB - HEMATOLOGY OR DERABLES [facility] INSURANCE BILL * C-REACTIVE PROTEIN (08/12/2014 2:08 PM CDT) C-Reactive Protein 1.6 0.0 - 4.9 mg/L [facility] INSURANCE BILL Blood specimen (specimen) BLOOD SPECIMEN / Unknown 08/12/2014 2:08 PM CDT 08/12/2014 6:39 PM CDT Narrative Resulting Agency Comment [facility] [address] ??[facility] [phone] Isidro Heredia MD LAB - CHEMISTRY ORD [...] CDT Narrative Resulting Agency Comment [facility] [address] ??[facility] [phone] Isidro Heredia MD LAB - CHEMISTRY ORD ERABLES [facility] INSURANCE BILL * CYCLIC CITRUL PEPTIDE ANTIBODY IGG/IGA (CCP) (08/12/2014 2:08 PM CDT) Pathologist [facility] CCP Antibodies IgG/IgA 8 0 - 19 units [facility] INSURANCE BILL Comment: ? Negative ? <20 ? Weak positive ?20 - 39 ? Moderate positive ??40 - 59 ? Strong positive ?>59 BLOOD SPECIMEN / Unknown 08/12/2014 2:08 PM CDT 08/12/2014 6:39 PM CDT Narrative Resulting Agency Comment [facility] [address] ??[facility] [phone] Isidro Heredia MD LAB - SEROLOGY MARII ARAUJO [facility] INSURANCE BILL * (ABNORMAL) CBC W AUTO DIFFERENTIAL (08/12/2014 2:08 PM CDT) Pathologist [facility] WBC 10.7 3.4 - 10.8 x10E3/uL [facility] [...] 6:39 PM CDT Narrative Resulting Agency Comment [address] ??[facility] [phone] Isidro Heredia MD LAB - HEMATOLOGY OR [...] (Smooth) ? Histone ? Speckled ? Sm, ALTERNATIVE ENERGY TECHNICIAN, SCL-70, ??SLE,MCTD,Scleroderma,Sjogrens ? SS-A/SS-B ? Nucleolar ?SCL-70, PM-1/SCL ??High titers Scleroderma Poly- ? myositis/Scleroderma Overlap ? Centromere ?? Centromere ?PSS w/Crest syndrome variable ?? 08/12/2014 2:03 PM CDT 08/12/2014 6:39 PM CDT Narrative Resulting Agency Comment [facility] [place] [address] ??[place] [phone] Isidro Heredia MD LAB - PATHOLOGY/CYT OLOGY ORDERABLES Performing Organization Address [facility] Co de Phone Number [facility] INSURANCE BILL * ROSA BLOOD SCREEN W/REFLEX TITER (08/12/2014 2:03 PM CDT) ROSA See patterns [facility] INSURANCE BILL Comment: ?Negative ?? <1:80 ?Borderline ??1:80 ?Positive ?? >1:80 Blood specimen (specimen) BLOOD SPECIMEN / Unknown 08/12/2014 2:03 PM CDT 08/12/2014 6:39 PM CDT Narrative Resulting Agency Comment [facility] [address] ??[place] [phone] Isidro Heredia MD LAB - CHEMISTRY ORD ERABLES Performing Organization Address [facility]/ZIP Co de Phone Number [facility] INSURANCE BILL [...] CDT Narrative Resulting Agency Comment [facility] [address] ??[facility] [phone] Isidro Heredia MD LAB - SEROLOGY MARII ARAUJO Performing Organization Address [facility] Co de Phone Number [facility] INSURANCE BILL * C-REACTIVE PROTEIN (08/12/2014 2:03 PM CDT) C-Reactive Protein 1.5 0.0 - 4.9 mg/L [facility] INSURANCE BILL Blood specimen (specimen) BLOOD SPECIMEN / Unknown 08/12/2014 2:03 PM CDT 08/12/2014 6:39 PM CDT Narrative Resulting Agency Comment [facility] [place] [address] [facility] ??[place] [phone] Isidro Heredia MD LAB - CHEMISTRY CALEB [...] CDT Narrative Resulting Agency Comment [facility] [address] ??[facility] [phone] Isidro Heredia MD LAB - CHEMISTRY ORD [...] CDT Narrative Resulting Agency Comment [facility] [address] ??[facility] [phone] Isidro Heredia MD LAB - HEMATOLOGY OR [...] arthritis documented in this encounter Care Teams Public Welfare Worker Relationship Specialty Start Date End Date Tomas Hyman MD [address] [place] [address] PCP - General Family Medicine 12/31/13 05/09/18 Isidro Heredia MD Rheumatology 02/09/11 documented as of this encounter
--- OUTSIDE RECORDS SUMMARY | 2024-05-10 10:27 | XMS_ITS | Encounter Summary ---
Author Organization [facility] Address [address] [facility] [place] [address] Care Team Providers Care Electrical Engineering Designer Name Role Phone Isidro Heredia MD Unavailable [phone] Tomas Hyman MD Primary Care Provider Reason for Visit * Reason Comments Rheumatoid Arthritis * Evaluate & Treat (Routine) - Closed Specialty Diagnoses / Procedures Referred By Lawrence shah Referred To Contact Diagnoses Rheumatoid arthritis(714.0) (HCC) Procedures OR OFFICE VISIT DURING HOURS Tomas Hyman MD [address] [facility] [address] [place] [address] Isidro Heredia MD [address] [place] [address] Referral ID Status Reason Start Date Expiration Date Visits Re quested Visits Authorized [id number] Closed 02/10/2014 02/10/2015 6 6 Encounter Details Date Type Department Care Team (Late st Contact Info) Description 06/08/2014 4:45 PM LABORATORY SPECIALIST Office Visit [facility] Medical [facility] - Rheumatology [address] [place] [address] Isidro Heredia MD [address] [place] [address] Rheumatoid arthritis (HCC) (Primary Dx); Chronic [...] Comments Blood Pressure 141/94 06/08/2014 5:26 PM LABORATORY SPECIALIST Pulse 107 06/08/2014 5:26 PM LABORATORY SPECIALIST Temperature - - Respiratory Rate - - Oxygen Saturation - - Inhaled Oxygen Concentration - - Weight 115.7 kg (255 lb) 06/08/2014 5:26 PM LABORATORY SPECIALIST Height - - Body Mass Index 36.59 05/11/2014 9:22 AM LABORATORY SPECIALIST documented in this encounter Progress Notes [...] PO) Take by mouth once daily. ??? Sckslqdbnzp-Msxasdqgy-Pgj C-Mn (GLUCOSAMINE CHONDR 1500 COMPLX PO) Take [...] Follow up in office in 4 weeks RATORY SPECIALIST documented in this encounter Plan of Treatment Upcoming Encounters Date Type Department Care Team (Late st Contact Info) Description 06/03/2024 1:00 PM LABORATORY SPECIALIST Appointment [facility] - Rheumatology [address] [place] [address] 06/03/2024 2:00 PM LABORATORY SPECIALIST Office Visit [facility] - Rheumatology [address] [place] [address] lGoria Smith MD [address] [place] [phone] documented as of this encounter Visit Diagnoses Diagnosis Rheumatoid arthritis(714.0) ([facility])- Primary Rheumatoid arthritis Chronic pain syndrome Lumbar radiculopathy Thoracic or lumbosacral neuritis or radiculitis, unspecified documented in this encounter Care Teams Electrical Engineering Designer Relationship Specialty Start Date End Date Tomas Hyman MD [address] [facility] [address] [place] [address] PCP - General Family Medicine 12/31/13 05/09/18 Isidro Heredia MD Rheumatology 02/09/11 documented as of this encounter
--- OUTSIDE RECORDS SUMMARY | 2024-05-10 10:27 | XMS_ITS | Encounter Summary ---
Author Organization [facility] Address [address] [facility] [place] [address] Care Team Providers Care Genetic Scientist Name Role Phone Isidro Heredia MD Unavailable [phone] Tomas Hyman MD Primary Care Provider [phone] Reason for Visit * Radiology Services - Closed Specialty Diagnoses / Procedures Referred By Lawrence shah Referred To Contact Diagnoses Lumbar radiculopathy Procedures MRI SPINE LUMBAR NON CONTRAST MRI SPINE LUMBAR WITH AND WITHOUT CONTRAST Isidro Heredia MD [address] [facility] [address] Referral ID Status Reason Start Date Expiration Date Visits Re quested Visits Authorized [id number] Closed 01/02/2014 07/01/2014 1 1 Encounter Details Date Type Department Care Team (Late st Contact Info) Description 01/02/2014 7:32 AM CDT - 01/02/2014 11:59 PM T Hospital Encounter [facility] Health Imaging Services - MRI [address] [place] [address] Isidro Heredia MD [address] [place], [place] [id number] Discharge Disposition: Home or Self Care Social [...] Sig Dispensed Refills Start Date End Date Qqetljerggg-Fuwmphbwn-Qc t C-Mn (GLUCOSAMINE CHONDR 1500 COMPLX PO) [...] oxyCODONE-acetaminophen (PERCOCET) 5-325 MG tabletIndications:Rheuma toid arthritis(714.0) ([facility]) Take 1 Tab by mouth [...] Contact Info) Description 06/03/2024 1:00 PM RAILROAD DESIGN CONSULTANT Appointment [facility] - Rheumatology [address] [place] [address] 06/03/2024 2:00 PM RAILROAD DESIGN CONSULTANT Office Visit [facility] - Rheumatology [address] [place] [address] Gloria Smith MD [address] [place] [phone] documented as of this encounter Procedures Procedure [...] unspecified documented in this encounter Care Teams Genetic Scientist Relationship Specialty Start Date End Date Tomas Hyman MD [address] [facility] [address] [place] [address] PCP - General Family Medicine 12/31/13 05/09/18 Isidro Heredia MD Rheumatology 02/09/11 documented as of this encounter
--- OUTSIDE RECORDS SUMMARY | 2024-05-10 10:27 | XMS_ITS | Encounter Summary ---
Author Organization [facility] Address [address] [facility] [place] [address] Care Team Providers Care Bead Machine Operator Name Role Phone Isidro Heredia MD Unavailable [phone] Tomas Hyman MD Primary Care Provider [phone] Reason for Visit * Oncology Prior Authorization - Closed Specialty Diagnoses / Procedures Referred By Contsarahi t Referred To Contact Infusion Therapy Nurse Diagnoses Rheumatoid arthritis(714.0) ([facility]) Procedures DE INJECTION TOCILIZUMAB 1 MG Isidro Heredia MD [address] [place] [address] [phone] Referral ID Status Reason Start Date Expiration Date Visits Re quested Visits Authorized [id number] Closed 05/01/2013 04/29/2014 1 12 Encounter Details Date Type Department Care Team (Late st Contact Info) Description 04/10/2014 12:17 PM PAN DEVULCANIZER - 04/10/2014 11:59 PM PAN DEVULCANIZER Hospital Encounter [facility] Medical [facility] - Rheumatology [address] [place] [address] Isidro Heredia MD [address] [place] [address] Discharge Disposition: Home or Self [...] Comments Blood Pressure 149/87 04/10/2014 1:42 PM PAN DEVULCANIZER Pulse 112 04/10/2014 1:42 PM PAN DEVULCANIZER Temperature 37.2 ??C (98.9 ??F) 04/10/2014 1:42 PM CS T Respiratory Rate 18 04/10/2014 1:42 PM PAN DEVULCANIZER Oxygen Saturation - - Inhaled Oxygen Concentration - - Weight - - Height - - Body Mass Index - - documented in this encounter Discharge Instructions * Discharge Instructions* Magnolia Pruett RN - 04/10/2014 1:52 PM PAN DEVULCANIZER MT Rheumatology Post Infusion instructions You have [...] through Sunday 9-5 call the office at [phone] After hours or on the weekend call the exchange at [phone] If you have had lab work done [...] chosen [facility] as your provider. Magnolia Pruett, RN DEVULCANIZER documented in this encounter Medications at Time of Discharge Medication Sig Dispensed Refills Start Date End Date Ytkblglpomh-Jmjmhulsy-Jw t C-Mn (GLUCOSAMINE CHONDR 1500 COMPLX PO) [...] 04/10/2014 1:53 PM CST JOSE Chalino Deng [id number] 04/10/2014 Diagnosis: Rheumatoid arthritis [714.0]. Pt denies [...] Next treatment? 4 wks Magnolia Pruett RN DEVULCANIZER documented in this encounter Plan of Treatment Upcoming Encounters Date Type Department Care Team (Late st Contact Info) Description 06/03/2024 1:00 PM PAN DEVULCANIZER Appointment [facility] - Rheumatology [address] [place] [address] 06/03/2024 2:00 PM PAN DEVULCANIZER Office Visit [facility] - Rheumatology [address] [place] [address] Gloria Smith MD [address] [place] [phone] documented as of this encounter Visit Diagnoses [...] 1230, 2 vials used of Actemra 400MG [facility] 62333-743-88 with 0 WASTE $ Given 04/10/2014 1:51 PM PAN DEVULCANIZER 800 mg 140 m L/hr documented in this encounter Care Teams Bead Machine Operator Relationship Specialty Start Date End Date Tomas Hyman MD [address] [place] [address] PCP - General Family Medicine 12/31/13 05/09/18 Isidro Heredia MD Rheumatology 02/09/11 documented as of this encounter
--- OUTSIDE RECORDS SUMMARY | 2024-05-10 10:27 | XMS_ITS | Encounter Summary ---
Author Organization [facility] Address [address] [facility] [place] [address] Care Team Providers Care Dry Color Mixer Name Role Phone Isidro Heredia MD Unavailable [phone] Tomas Hyman MD Primary Care Provider [phone] Encounter Details Date Type Department Care Team (Latest Contact Info) Description 03/17/2014 9:10 AM INCIDENT RESPONSE SPECIALIST - 03/17/2014 11:59 PM INCIDENT RESPONSE SPECIALIST Hospital Encounter [facility] Pain Care [address] [place] [address] [place] [address] [place] [phone] Discharge Disposition: Home or Self Care Social [...] Comments Blood Pressure 148/91 03/17/2014 9:46 AM INCIDENT RESPONSE SPECIALIST Pulse 87 03/17/2014 9:46 AM INCIDENT RESPONSE SPECIALIST Temperature - - Respiratory Rate 16 03/17/2014 9:46 AM INCIDENT RESPONSE SPECIALIST Oxygen Saturation 96% 03/17/2014 9:46 AM INCIDENT RESPONSE SPECIALIST Inhaled Oxygen Concentration - - Weight - - Height - - Body Mass Index - - documented in this encounter Discharge Instructions * Patient Instructions* Nena Pond RN - 03/17/2014 9:20 AM INCIDENT RESPONSE SPECIALIST [facility] Procedure Center Pain Discharge Instructions Selective [...] headache, or any other problems, please call [phone] or after hours callDr. Mirza at [phone] and tell them your physician's name. The exchange will alert the physician risk control officer. If sedation is given: No sedation given. For Your Next Visit: No additional instructions. Other Instructions: May remove band-aid in 12 Hours. Return in one week for TFE #3. Patient Signature: Date: RN Signature: Date: DENT RESPONSE SPECIALIST documented in this encounter Medications at Time of Discharge Medication Sig Dispensed Refills Start Date End Date Kjzrumrhmor-Jmeosuysa-Je t C-Mn (GLUCOSAMINE CHONDR 1500 COMPLX PO) [...] oxyCODONE-acetaminophen (PERCOCET) 5-325 MG tabletIndications:Rheuma toid arthritis(714.0) ([facility]) Take 1 Tab by mouth every 6 [...] and marked by Dr. Mirza. Responsible cdl a driver is not needed due [...] Add Levels Lumb/Sac, Fluoro. Alejandro Mirza MD DENT RESPONSE SPECIALIST documented in this encounter Plan of Treatment Upcoming Encounters Date Type Department Care Team (Late st Contact Info) Description 06/03/2024 1:00 PM INCIDENT RESPONSE SPECIALIST Appointment [facility] - Rheumatology [address] [place] [phone] 06/03/2024 2:00 PM INCIDENT RESPONSE SPECIALIST Office Visit [facility] - Rheumatology [address] [place] [address] Gloria Smith MD [address] [place] [phone] documented as of this encounter Procedures Procedure Name Priority Date/Time Associated Diagnosis Comments PAIN MANAGEMENT PROCEDURE TIME Routine 03/17/2014 9:43 AM INCIDENT RESPONSE SPECIALIST Displacement Of Lumbar Intervertebral Disc Without Myelopathy Thoracic or lumbosacral neuritis or radiculitis, unspecified documented in this encounter Results * PAIN MANAGEMENT PROCEDURE TIME (03/17/2014 9:43 AM INCIDENT RESPONSE SPECIALIST) Anatomical Region Laterality Modality X-Ray Angiograph y Narrative 03/17/2014 10:14 AM INCIDENT RESPONSE SPECIALIST Alejandro Mirza MD ? 03/17/2014 10:14 AM [...] and marked by Dr. Mirza. ??Responsible cdl a driver is not needed due [...] Admin. by Other Provider 03/17/2014 9:34 AM INCIDENT RESPONSE SPECIALIST 10 mg lidocaine (XYLOCAINE MPF) 1 % injection Infiltration, ONCE, 1 dose, On Sun03/17/14 at 0945 $ Admin. by Other Provider 03/17/2014 9:34 AM INCIDENT RESPONSE SPECIALIST 5 mL documented in this encounter Care Teams Dry Color Mixer Relationship Specialty Start Date End Date Tomas Hyman MD [address] [facility] [address] [place] [address] PCP - General Family Medicine 12/31/13 05/09/18 Isidro Heredia MD Rheumatology 02/09/11 documented as of this encounter
--- OUTSIDE RECORDS SUMMARY | 2024-05-10 10:27 | XMS_ITS | Encounter Summary ---
Author Organization [facility] Address [address] [place] [address] Care Team Providers Care Gun Perforator Loader Name Role Phone Isidro Heredia MD Unavailable [phone] Tomas Hyman MD Primary Care Provider Reason for Visit * Reason Comments Lower Extremity Problem right * Evaluate & Treat (Routine) - Closed Specialty Diagnoses / Procedures Referred By Lawrence shah Referred To Contact Diagnoses Lumbago Rheumatoid arthritis(714.0) ([facility]) Procedures AMB CONSULT TO ORTHOPEDIC SURGERY [place] OFFICE/OUTPT VISIT,EST,Tomas Murguia MD [address] [place] [address] [place] [address] [address] Referral ID Status Reason Start Date Expiration Date Visits Re quested Visits Authorized [id number] Closed 03/11/2014 03/11/2015 6 6 Encounter Details Date Type Department Care Team (Late st Contact Info) Description 03/23/2014 9:00 AM SECTION LEADER AND MACHINE SETTER Office Visit [facility] Pain Care [id number] [place] [address]. [place] [address] [place] [address] [facility] [address] [place] [address] Thoracic or lumbosacral neuritis or [...] 117.9 kg (260 lb) 03/23/2014 9:18 AM SECTION LEADER AND MACHINE SETTER Height 177.8 cm (5' 10 ) 03/23/2014 9:18 AM SECTION LEADER AND MACHINE SETTER Body Mass Index 37.31 03/23/2014 9:18 AM SECTION LEADER AND MACHINE SETTER documented in this encounter Patient Instructions * Patient Instructions* Selvin Stern MD - 03/23/2014 10:12 AM SECTION LEADER AND MACHINE SETTER F/U with . ION LEADER AND MACHINE SETTER documented in this encounter Progress Notes * Selvin Stern MD - 03/23/2014 10:12 AM CST Please see dictated clinic note. ION LEADER AND MACHINE SETTER * Hali Figueroa - 03/23/2014 9:18 AM CST EMG RLE Pain scale 7/10 ION LEADER AND MACHINE SETTER documented in this encounter H&P Notes * Selvin Stern MD - 03/25/2014 12:11 AM CST DATE OF SERVICE: 03/23/2014 LOCATION: [facility] [address] HISTORY: Mr. Deng is [...] exhaustion. 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 He lives with his family. He denies [...] Selvin Boateng M.D. Electronically Signed 03/25/2014 08:17:12 [facility]/MedQ #: [id number] cc: Catina Rosa M.D. ION LEADER AND MACHINE SETTER * Selvin tSern MD - 03/24/2014 11:41 PM CST DATE OF SERVICE: 03/23/2014 LOCATION: [facility] 120 EMG STUDY: EXAMINING PHYSICIAN: Selvin Boateng M.D. REFERRING PHYSICIAN: lAejandro Mirza M.D. HISTORY OF PRESENT ILLNESS: For [...] M.D. Electronically Signed 03/25/2014 08:17:17 [facility]/MedQ #: [id number] ION LEADER AND MACHINE SETTER documented in this encounter Plan of Treatment Upcoming Encounters Date Type Department Care Team (Late st Contact Info) Description 06/03/2024 1:00 PM SECTION LEADER AND MACHINE SETTER Appointment [facility] - Rheumatology [address] [place] [phone] 06/03/2024 2:00 PM SECTION LEADER AND MACHINE SETTER Office Visit [facility] - Rheumatology [address] [place] [phone] Gloria Smith MD [address] [place] [phone] documented as of this encounter Visit Diagnoses Diagnosis Thoracic or lumbosacral neuritis or radiculitis, unspecified- Primary documented in this encounter Care Teams Gun Perforator Loader Relationship Specialty Start Date End Date Tomas Hyman MD [address] [facility] [address] [place] [address] PCP - General Family Medicine 12/31/13 05/09/18 Isidro Heredia MD Rheumatology 02/09/11 documented as of this encounter
--- OUTSIDE RECORDS SUMMARY | 2024-05-10 10:27 | XMS_ITS | Encounter Summary ---
Author Organization [facility] Address [address] [facility] [place] [address] Care Team Providers Care Stock Preparer Name Role Phone Isidro Heredia MD Unavailable [phone] Tomas Hyman MD Primary Care Provider [phone] Reason for Visit * Reason Comments Pain Back Encounter Details Date Type Department Care Team (Latest Contact Info) Description 12/31/2013 11:00 AM CDT Procedure visit [facility] - Family Medicine [address] [place] [address] Lumbar radiculopathy Social History Tobacco Use [...] st Contact Info) Description 06/03/2024 1:00 PM BRICK OR BLOCK MAKER Appointment [facility] - Rheumatology [address] [place] [address] 06/03/2024 2:00 PM BRICK OR BLOCK MAKER Office Visit [facility] Medical [facility] - Rheumatology [address] [place] [address] Gloria Smith MD [address] [place] [phone] documented as of this encounter Procedures Procedure [...] unspecified documented in this encounter Care Teams Stock Preparer Relationship Specialty Start Date End Date Tomas Hyman MD [address] [facility] [address] [place] [address] PCP - General Family Medicine 12/31/13 05/09/18 Isidro Heredia MD Rheumatology 02/09/11 documented as of this encounter
--- OUTSIDE RECORDS SUMMARY | 2024-05-10 10:27 | XMS_ITS | Encounter Summary ---
Author Organization [facility] Address [address] [place] [address] Care Team Providers Care Pourer Name Role Phone Isidro Heredia MD Unavailable [phone] Tomas Hyman MD Primary Care Provider [phone] Reason for Visit * Reason Onset Date Comments Forms 07/27/2014 Encounter Details Date Type Department Care Team (Late st Contact Info) Description 07/27/2014 Telephone [facility] - Family Medicine [address] [place] [address] [phone] Isidro Heredia MD [address] [place] [address] Forms Social History Tobacco Use Types [...] for me Thanks! * Telephone Encounter - [place] Erika - 07/27/2014 2:00 PM CDT Pt is wanting to know about the forms for his usp he turned in 7 weeks ago and his work is asking him about it documented in this encounter Plan of Treatment Upcoming Encounters Date Type Department Care Team (Late st Contact Info) Description 06/03/2024 1:00 PM INSTRUCTIONAL MATERIALS DIRECTOR Appointment [facility] - Rheumatology [address] [place] [address] 06/03/2024 2:00 PM INSTRUCTIONAL MATERIALS DIRECTOR Office Visit [facility] - Rheumatology [address] [place] [address] Gloria Smith MD [address] [place] [phone] documented as of this encounter Visit Diagnoses Not on filedocumented in this encounter Care Teams Pourer Relationship Specialty Start Date End Date Tomas Hyman MD [address] [facility] [address] [place] [address] PCP - General Family Medicine 12/31/13 05/09/18 Isidro Heredia MD Rheumatology 02/09/11 documented as of this encounter
--- OUTSIDE RECORDS SUMMARY | 2024-05-10 10:27 | XMS_ITS | Encounter Summary ---
Author Organization [facility] Address [address] [facility] [place] [address] Care Team Providers Care Preforms Laminator Name Role Phone Isidro Heredia MD Unavailable [phone] Tomas Hyman MD Primary Care Provider [phone] Reason for Referral * Procedure - Closed Specialty Diagnoses / Procedures Referred By Contac t Referred To Contact Cardiology Diagnoses Tachycardia Procedures EKG 12-LEAD Isidro Heredia MD [address] [place] [address] Referral ID Status Reason Start Date Expiration Date Visits Re quested Visits Authorized [id number] Closed 05/26/2014 11/22/2014 1 1 Reason for Visit * Treatment (Routine) - Closed Specialty Diagnoses / Procedures Referred By Contac t Referred To Contact Infusion Therapy Nurse Diagnoses Rheumatoid arthritis(714.0) ([facility]) Procedures AK INJECTION TOCILIZUMAB 1 MG Isidro Heredia MD [address] [place] [address] [address] Referral ID Status Reason Start Date Expiration Date Visits Re quested Visits Authorized [id number] Closed 05/08/2014 10/05/2014 1 6 Encounter Details Date Type Department Care Team (Late st Contact Info) Description 07/13/2014 2:25 PM CDT - 07/13/2014 11:59 PM CDT Hospital Encounter [facility] - Rheumatology [address] [place] [address] Isidro Heredia MD [address] [facility] [place] [address] Discharge Disposition: Home or Self Care Social [...] Foreman RN - 07/13/2014 3:07 PM CDT [place] Rheumatology Post Infusion instructions You have [...] through Sunday 9-5 call the office at [phone] After hours or on the weekend call the exchange at [phone] If you have had lab work done [...] Sig Dispensed Refills Start Date End Date Ujwjmevpzra-Smebvmbyj-Rj t C-Mn (GLUCOSAMINE CHONDR 1500 COMPLX PO) [...] NaCl 0.9 % 100 mLIndications:Rheumatoid arthritis(714.0) ([facility]) Pt to receive IV infusion 800mg Actemra/100cc0.9%norm al saline, per nasir Avila's office practice of Actemra 8mg/kg over 60 minutes and the Actemra schedule; first dose, then every 4 weeks thereafter, unless further orders received from . Exp 09/04/2014 09/04/2013 09/04/2014 documented as of this encounter Progress Notes * Carlos Foreman, RN - 07/13/2014 3:13 PM CDT JOSE Deng [id number] 07/13/2014 Diagnosis: Tachycardia [785.0]. Patient questionnaire results [...] st Contact Info) Description 06/03/2024 1:00 PM CONSUMER ADVOCATE Appointment [facility] - Rheumatology [address] [place] [address] 06/03/2024 2:00 PM CONSUMER ADVOCATE Office Visit [facility] - Rheumatology [address] [place] [address] Gloria Smith MD [address] [place] [phone] Scheduled Orders Name Type Priority Associated [...] 1245, 2 vials used of Actemra 400MG [facility] 11800-061-65 with 0 WASTE $ Given 07/13/2014 2:50 PM CDT 800 mg 140 m L/hr documented in this encounter Care Teams Preforms Laminator Relationship Specialty Start Date End Date Tomas Hyman MD [address] [facility] [address] [place] [address] PCP - General Family Medicine 12/31/13 05/09/18 Isidro Heredia MD Rheumatology 02/09/11 documented as of this encounter
--- OUTSIDE RECORDS SUMMARY | 2024-05-10 10:27 | XMS_ITS | Encounter Summary ---
Author Organization [facility] Address [address] [place] [address] Care Team Providers Care Medical Director Name Role Phone Isidro Heredia MD Unavailable [phone] Tomas Hyman MD Primary Care Provider Reason for Visit * Reason Comments Rheumatoid Arthritis * Evaluate & Treat (Routine) - Closed Specialty Diagnoses / Procedures Referred By Lawrence shah Referred To Contact Diagnoses Rheumatoid arthritis(714.0) (HCC) Procedures [place] OFFICE VISIT DURING HOURS Tomas Hyman MD [address] [facility] [address] [place] [address] Isidro Heredia MD [address] [place] [address] Referral ID Status Reason Start Date Expiration Date Visits Re quested Visits Authorized [id number] Closed 02/10/2014 02/10/2015 6 6 Encounter Details Date Type Department Care Team (Late st Contact Info) Description 03/12/2014 1:45 PM HANDBAG OPERATOR Office Visit [facility] Medical [facility] - Rheumatology [address] [place] [address] Isidro Heredia MD [address] [place] [address] Chronic pain syndrome (Primary Dx); Rheumatoid [...] Referral given to eye doctor Dr Pena BAG OPERATOR * Isidro Heredia MD - 03/12/2014 2:38 [...] PO) Take by mouth once daily. ??? Yhdparkffdy-Evsxjmqwh-Pag C-Mn (GLUCOSAMINE CHONDR 1500 COMPLX PO) Take [...] Follow up in office in 4 weeks BAG OPERATOR documented in this encounter Plan of Treatment Upcoming Encounters Date Type Department Care Team (Late st Contact Info) Description 06/03/2024 1:00 PM HANDBAG OPERATOR Appointment [facility] - Rheumatology [address] [place] [address] 06/03/2024 2:00 PM HANDBAG OPERATOR Office Visit [facility] - Rheumatology [address] [place] [address] Gloria Smith MD [address] [place] [phone] documented as of this encounter Visit Diagnoses Diagnosis Chronic pain syndrome- Primary Rheumatoid arthritis(714.0) (HCC) Rheumatoid arthritis Chronic LBP Lumbago documented in this encounter Care Teams Medical Director Relationship Specialty Start Date End Date Tomas Hyman MD [address] [facility] [address] [place] [address] PCP - General Family Medicine 12/31/13 05/09/18 Isidro Heredia MD Rheumatology 02/09/11 documented as of this encounter
--- OUTSIDE RECORDS SUMMARY | 2024-05-10 10:27 | XMS_ITS | Encounter Summary ---
Author Organization [facility] Address [address] [facility] [place] [address] Care Team Providers Care Field Appraiser Name Role Phone Isidro Heredia MD Unavailable Tomas Hyman MD Primary Care Provider Reason for Referral * Procedure - Closed Specialty Diagnoses / Procedures Referred By Contac t Referred To Contact Cardiology Diagnoses Tachycardia Procedures EKG 12-LEAD Isidro Heredia MD [address] [place] [address] Referral ID Status Reason Start Date Expiration Date Visits Re quested Visits Authorized [id number] Closed 05/26/2014 11/22/2014 1 1 SPRING REPAIRER HELPER Reason for Visit * Reason Comments Rheumatoid Arthritis Pain Joint rt shoulder pain- wa nts cortisone injection, hand, wist, ankle pain * Evaluate & Treat (Routine) - Closed Specialty Diagnoses / Procedures Referred By Contsarahi t Referred To Contact Diagnoses Rheumatoid arthritis(714.0) ([facility]) Procedures [place] OFFICE VISIT DURING HOURS Tomas Hyman MD [address] [place] [address] Isidro Heredia MD [address] [place] [address] Referral ID Status Reason Start Date Expiration Date Visits Re quested Visits Authorized [id number] Closed 02/10/2014 02/10/2015 6 6 Encounter Details Date Type Department Care Team (Late st Contact Info) Description 05/22/2014 12:00 PM HAND SPRING REPAIRER HELPER Office Visit [facility] - Rheumatology [address] [place] [address] Isidro Heredia MD [address] [facility] [address] Rheumatoid arthritis (HCC) (Primary Dx); Chronic pain [...] Comments Blood Pressure 102/94 05/22/2014 12:35 PM HAND SPRING REPAIRER HELPER Pulse - - Temperature - - Respiratory Rate - - Oxygen Saturation - - Inhaled Oxygen Concentration - - Weight 115.7 kg (255 lb) 05/22/2014 12:35 PM HAND SPRING REPAIRER HELPER Height - - Body Mass Index 36.59 05/11/2014 9:22 AM HAND SPRING REPAIRER HELPER documented in this encounter Progress Notes [...] PO) Take by mouth once daily. ??? Prqrcpfwxea-Zfdnlwawc-Dfz C-Mn (GLUCOSAMINE CHONDR 1500 COMPLX PO) Take [...] TRIAMCINOLON ACETONID NOS 10 MG INJ ??? SC DRAIN/INJECT LARGE JOINT/BURSA ??? oxyCODONE-acetaminophen (PERCOCET) 5-325 [...] Follow up in office in 4 weeks SPRING REPAIRER HELPER documented in this encounter Plan of Treatment Upcoming Encounters Date Type Department Care Team (Late st Contact Info) Description 06/03/2024 1:00 PM HAND SPRING REPAIRER HELPER Appointment [facility] - Rheumatology [address] [place] [address] [phone] 06/03/2024 2:00 PM HAND SPRING REPAIRER HELPER Office Visit [facility] - Rheumatology [address] [place] [address] [phone] Gloria Smith MD [address] [place] [phone] Scheduled Orders Name Type Priority Associated Diagnoses Orde r Schedule EKG 12-LEAD ECG Routine Tachycardia 1 Occurrences starting 05/26/2014 until 05/26/2015 documented as of this encounter Visit Diagnoses Diagnosis Rheumatoid arthritis(714.0) ([facility])- Primary Rheumatoid arthritis Chronic pain syndrome Lumbar radiculopathy Thoracic or lumbosacral neuritis or radiculitis, unspecified Triceps tendonitis Other enthesopathy of elbow region Tachycardia Tachycardia, unspecified documented in this encounter Administered Medications Administered Medications Medication Order MAR Action Action Date Dose Rate Site Triamcinolone Acetonide Intraarticular Given 05/22/2014 80 mL See comments documented in this encounter Care Teams Field Appraiser Relationship Specialty Start Date End Date Tomas Hyman MD [address] [facility] [address] [place] [address] PCP - General Family Medicine 12/31/13 05/09/18 Isidro Heredia MD Rheumatology 02/09/11 documented as of this encounter
--- OUTSIDE RECORDS SUMMARY | 2024-05-10 10:27 | XMS_ITS | Encounter Summary ---
Author Organization [facility] Health Address [address] [place] [address] Care Team Providers Care Tape Making Machine Operator Name Role Phone Isidro Heredia MD Unavailable [phone] Tomas Hyman MD Primary Care Provider [phone] Reason for Visit * Treatment (Routine) - Closed Specialty Diagnoses / Procedures Referred By Contsarahi t Referred To Contact Pain Management Diagnoses Displacement of lumbar intervertebral disc without myelopathy Thoracic or lumbosacral neuritis or radiculitis, unspecified Procedures CO INJ,FORAMEN,L/S,1 LEVEL CO INJ,FORAMEN,L/S,[place] [address] [address] [facility] Pain Care [address] [place] [address] Referral ID Status Reason Start Date Expiration Date Visits Re quested Visits Authorized [id number] Closed 03/10/2014 09/06/2014 6 6 Encounter Details Date Type Department Care Team (Latest Contact Info) Description 03/24/2014 10:15 AM STUDENT AFFAIRS DEAN - 03/24/2014 10:23 AM [facility] Hospital Encounter [facility] Pain Care [address] [place] [address] [place] [address] [place] [phone] Discharge Disposition: Home or Self Care Social [...] Sig Dispensed Refills Start Date End Date Fbjgkcftufg-Pctgvzvmt-Pn t C-Mn (GLUCOSAMINE CHONDR 1500 COMPLX PO) [...] oxyCODONE-acetaminophen (PERCOCET) 5-325 MG tabletIndications:Rheuma toid arthritis(714.0) ([facility]) Take 1 Tab by mouth [...] Contact Info) Description 06/03/2024 1:00 PM STUDENT AFFAIRS DEAN Appointment [facility] - Rheumatology [address] [place] [address] [phone] 06/03/2024 2:00 PM STUDENT AFFAIRS DEAN Office Visit [facility] - Rheumatology [address] [place] [address] [phone] Gloria Smith MD [address] [place] [phone] documented as of this encounter Visit Diagnoses Not on filedocumented in this encounter Care Teams Tape Making Machine Operator Relationship Specialty Start Date End Date Tomas Hyman MD [address] [facility] [address] [place] [address] PCP - General Family Medicine 12/31/13 05/09/18 Isidro Heredia MD Rheumatology 02/09/11 documented as of this encounter
--- OUTSIDE RECORDS SUMMARY | 2024-05-10 10:27 | XMS_ITS | Encounter Summary ---
Author Organization [facility] Address [address] [facility] [place] [address] Care Team Providers Care College Archivist Name Role Phone Isidro Heredia MD Unavailable [phone] Tomas Hyman MD Primary Care Provider [phone] Reason for Visit * Reason Comments Refill Request Encounter Details Date Type Department Care Team (Late Contact Info) Description 09/12/2014 Refill [facility] - Rheumatology [address] [place] [address] Isidro Heredia MD [address] [place] [address] Refill Request Social History Tobacco Use [...] (Late Contact Info) Description 06/03/2024 1:00 PM RITUAL CIRCUMCISER Appointment [facility] - Rheumatology [address] [place] [address] 06/03/2024 2:00 PM RITUAL CIRCUMCISER Office Visit [facility] Rheumatology [address] [place] [address] Gloria Smith MD [address] [place] [address] [phone] documented as of this encounter Visit Diagnoses Not on filedocumented in this encounter Care Teams College Archivist Relationship Specialty Start Date End Date Tomas Hyman MD [address] [place] [address] PCP - General Family Medicine 12/31/13 05/09/18 Isidro Heredia MD Rheumatology 02/09/11 documented as of this encounter
--- OUTSIDE RECORDS SUMMARY | 2024-05-10 10:27 | XMS_ITS | Encounter Summary ---
Author Organization [facility] Address [address] [facility] [place] [address] Care Team Providers Care Fabric Pattern Grader Name Role Phone Isidro Heredia MD Unavailable [phone] Tomas Hyman MD Primary Care Provider [phone] Reason for Visit * Reason Comments Rheumatoid Arthritis * Evaluate & Treat (Routine) - Closed Specialty Diagnoses / Procedures Referred By Lawrence shah Referred To Contact Diagnoses Rheumatoid arthritis(714.0) (HCC) Procedures [place] OFFICE VISIT DURING HOURS Tomas Hyman MD [address] [facility] [address] [place] [address] Isidro Heredia MD [address] [place] [address] Referral ID Status Reason Start Date Expiration Date Visits Re quested Visits Authorized [id number] Closed 02/10/2014 02/10/2015 6 6 Encounter Details Date Type Department Care Team (Late st Contact Info) Description 04/10/2014 12:15 PM PBX MANAGER [facility] Visit [facility] Medical [facility] - Rheumatology [address] [place] [address] Isidro Heredia MD [address] [place] [address] Rheumatoid arthritis (HCC) (Primary Dx); Chronic [...] Comments Blood Pressure 149/87 04/10/2014 1:53 PM PBX MANAGER Pulse 112 04/10/2014 1:53 PM PBX MANAGER Temperature - - Respiratory Rate - - Oxygen Saturation - - Inhaled Oxygen Concentration - - Weight 117.9 kg (260 lb) 04/10/2014 1:53 PM PBX MANAGER Height - - Body Mass Index 37.31 03/23/2014 9:18 AM PBX MANAGER documented in this encounter Progress Notes [...] PO) Take by mouth once daily. ??? Stcgjmedazi-Ktgjbbpfg-Afy C-Mn (GLUCOSAMINE CHONDR 1500 COMPLX PO) Take [...] Follow up in office in 4 weeks MANAGER documented in this encounter Plan of Treatment Upcoming Encounters Date Type Department Care Team (Late st Contact Info) Description 06/03/2024 1:00 PM PBX MANAGER Appointment [facility] - Rheumatology [address] [place] [address] [phone] 06/03/2024 2:00 PM PBX MANAGER Office Visit [facility] - Rheumatology [address] [place] [address] Gloria Smith MD [address] [place] [phone] documented as of this encounter Visit Diagnoses Diagnosis Rheumatoid arthritis(714.0) ([facility])- Primary Rheumatoid arthritis Chronic pain syndrome documented in this encounter Care Teams Fabric Pattern Grader Relationship Specialty Start Date End Date Tomas Hyman MD [address] [place] [address] PCP - General Family Medicine 12/31/13 05/09/18 Isidro Heredia MD Rheumatology 02/09/11 documented as of this encounter
--- OUTSIDE RECORDS SUMMARY | 2024-05-10 10:27 | XMS_ITS | Encounter Summary ---
Author Organization [facility] Health Address [address] [place] [address] Care Team Providers Care Poultry Cleaner Name Role Phone Isidro Heredia MD Unavailable [phone] Tomas Hyman MD Primary Care Provider [phone] Reason for Visit * Treatment (Routine) - Closed Specialty Diagnoses / Procedures Referred By Contsarahi t Referred To Contact Pain Management Diagnoses Displacement of lumbar intervertebral disc without myelopathy Thoracic or lumbosacral neuritis or radiculitis, unspecified Procedures IA INJ,FORAMEN,L/S,1 LEVEL [place] INJ,FORAMEN,L/S,[place] [address] [address] [facility] Pain Care [address] [place] [address] Referral ID Status Reason Start Date Expiration Date Visits Re quested Visits Authorized [id number] Closed 03/10/2014 09/06/2014 6 6 Encounter Details Date Type Department Care Team (Latest Contact Info) Description 03/10/2014 10:18 AM EMPLOYEE COMMUNICATIONS INTERN Hospital Encounter [facility] [address] [place] [address] [place] [address] [address] Discharge Disposition: Home or Self [...] Sig Dispensed Refills Start Date End Date Ydxnyhwaeev-Fbheegbxy-Js t C-Mn (GLUCOSAMINE CHONDR 1500 COMPLX PO) [...] st Contact Info) Description 06/03/2024 1:00 PM EMPLOYEE COMMUNICATIONS INTERN Appointment [facility] - Rheumatology [address] [place] [address] [phone] 06/03/2024 2:00 PM EMPLOYEE COMMUNICATIONS INTERN Office Visit [facility] - Rheumatology [address] [place] [address] Gloria Smith MD [address] [place] [phone] documented as of this encounter Visit Diagnoses Not on filedocumented in this encounter Care Teams Poultry Cleaner Relationship Specialty Start Date End Date Tomas Hyman MD [address] [facility] [address] [place] [address] PCP - General Family Medicine 12/31/13 05/09/18 Isidro Heredia MD Rheumatology 02/09/11 documented as of this encounter
--- OUTSIDE RECORDS SUMMARY | 2024-05-10 10:27 | XMS_ITS | Encounter Summary ---
Author Organization [facility] Address [address] [facility] [place] [address] Care Team Providers Care Campus Director Name Role Phone Isidro Heredia MD Unavailable [phone] Tomas Hyman MD Primary Care Provider [phone] Reason for Visit * Oncology Prior Authorization - Closed Specialty Diagnoses / Procedures Referred By Contsarahi t Referred To Contact Infusion Therapy Nurse Diagnoses Rheumatoid arthritis(714.0) ([facility]) Procedures SC INJECTION TOCILIZUMAB 1 MG Isidro Heredia MD [address] [place] [address] [phone] Referral ID Status Reason Start Date Expiration Date Visits Re quested Visits Authorized [id number] Closed 05/01/2013 04/29/2014 1 12 Encounter Details Date Type Department Care Team (Late st Contact Info) Description 03/12/2014 12:57 PM PLASTICS PLATER - 03/12/2014 11:59 PM PLASTICS PLATER Hospital Encounter [facility] Medical [facility] - Rheumatology [address] [place] [address] Isidro Heredia MD [address] [place] [address] Discharge Disposition: Home or Self [...] Comments Blood Pressure 149/96 03/12/2014 1:44 PM PLASTICS PLATER Pulse 99 03/12/2014 1:44 PM PLASTICS PLATER Temperature 37.1 ??C (98.8 ??F) 03/12/2014 1:44 PM CS T Respiratory Rate 16 03/12/2014 1:44 PM PLASTICS PLATER Oxygen Saturation - - Inhaled Oxygen Concentration - - Weight - - Height 177.8 cm (5' 10 ) 03/12/2014 1:44 PM PLASTICS PLATER Body Mass Index - - documented in this encounter Discharge Instructions * Discharge Instructions* Carlos Foreman RN - 03/12/2014 1:42 PM PLASTICS PLATER [place] Rheumatology Post Infusion instructions You have [...] through Sunday 9-5 call the office at [phone] After hours or on the weekend call the exchange at [phone] If you have had lab work done [...] Hospital as your provider. Carlos Foreman RN TICS PLATER documented in this encounter Medications at Time of Discharge Medication Sig Dispensed Refills Start Date End Date Cmljuvdptlw-Payivfyts-Zu t C-Mn (GLUCOSAMINE CHONDR 1500 COMPLX PO) [...] oxyCODONE-acetaminophen (PERCOCET) 5-325 MG tabletIndications:Rheuma toid arthritis(714.0) ([facility]) Take 1 Tab by mouth every [...] - 03/12/2014 1:39 PM CST JOSE Deng [id number] 03/12/2014 Diagnosis: Rheumatoid arthritis [714.0]. Patient questionnaire [...] Yes Next treatment? 4wk Carlos Foreman RN TICS PLATER documented in this encounter Plan of Treatment Upcoming Encounters Date Type Department Care Team (Late st Contact Info) Description 06/03/2024 1:00 PM PLASTICS PLATER Appointment [facility] - Rheumatology [address] [place] [address] 06/03/2024 2:00 PM PLASTICS PLATER Office Visit [facility] - Rheumatology [address] [place] [address] Gloria Smith MD [address] [place] [phone] documented as of this encounter Visit [...] 0900, 2 vials used of Actemra 400MG [facility] 413[address]-787-67 with 0 WASTE $ Given 03/12/2014 1:39 PM PLASTICS PLATER 800 mg 140 m L/hr documented in this encounter Care Teams Campus Director Relationship Specialty Start Date End Date Tomas Hyman MD [address] [facility] [address] [place] [address] PCP - General Family Medicine 12/31/13 05/09/18 Isidro Heredia MD Rheumatology 02/09/11 documented as of this encounter
--- OUTSIDE RECORDS SUMMARY | 2024-05-10 10:27 | XMS_ITS | Encounter Summary ---
Author Organization [facility] Address [address] [place] [address] Care Team Providers Care Supervisor Mold Shop Name Role Phone Isidro Heredia MD Unavailable Tomas Hyman MD Primary Care Provider [phone] Reason for Visit * Treatment (Routine) - Closed Specialty Diagnoses / Procedures Referred By Lawrence shah Referred To Contact Infusion Therapy Nurse Diagnoses Rheumatoid arthritis(714.0) ([facility]) Procedures [place] INJECTION TOCILIZUMAB 1 MG Isidro Heredia MD [address] [address] Referral ID Status Reason Start Date Expiration Date Visits Re quested Visits Authorized [id number] Closed 05/01/2013 04/29/2014 1 12 Encounter Details Date Type Department Care Team (Late st Contact Info) Description 01/14/2014 2:00 PM CDT - 01/14/2014 11:59 PM CDT Hospital Encounter [facility] - Rheumatology [address] [place] [address] Isidro Heredia MD [address] [place] [address] Discharge Disposition: Home or Self [...] Foreman, RN - 01/14/2014 2:34 PM CDT [place] Rheumatology Post Infusion instructions [...] through Sunday 9-5 call the office at [phone] After hours or on the weekend call the exchange at [phone] If you have had lab work done [...] Sig Dispensed Refills Start Date End Date Krhadysoczs-Ugifgjiaj-Ne t C-Mn (GLUCOSAMINE CHONDR 1500 COMPLX PO) [...] 01/14/2014 2:42 PM CDT JOSE Chalino Deng [id number] 01/14/2014 Diagnosis: Rheumatoid arthritis [714.0]. Patient questionnaire [...] st Contact Info) Description 06/03/2024 1:00 PM HEEL BURNISHER Appointment [facility] - Rheumatology [address] [place] [address] 06/03/2024 2:00 PM HEEL BURNISHER Office Visit [facility] - Rheumatology [address] [place] [address] Gloria Smith MD [address] [place] [address] [facility] [place] [id number] documented as of this encounter Visit Diagnoses Diagnosis Rheumatoid arthritis(714.0) ([facility])- Primary Rheumatoid arthritis documented in this encounter Administered Medications Inactive Administered Medications - up to 3 most recent administrations Medication Order MAR Action Action Date Dose Rate Site Tocilizumab 800 mg in 0.9% NaCl IVPB 800 mg, at 100 mL/hr, Intravenous, ONCE, 1 dose, On Sun01/14/14 at 0800, 2 vials used of Actemra 400MG [facility] [id number] with 0 WASTE $ Given 01/14/2014 2:39 PM CDT 800 mg 100 m L/hr documented in this encounter Care Teams Supervisor Mold Shop Relationship Specialty Start Date End Date Tomas Hyman MD [address] [facility] [address] [place] [address] PCP - General Family Medicine 12/31/13 05/09/18 Isidro Heredia MD Rheumatology 02/09/11 documented as of this encounter
--- OUTSIDE RECORDS SUMMARY | 2024-05-10 10:27 | XMS_ITS | Encounter Summary ---
Author Organization [facility] Address [address] [facility] [address] Care Team Providers Care Python Django Developer Name Role Phone Isidro Heredia MD Unavailable [phone] Tomas Hyman MD Primary Care Provider [phone] Reason for Visit * Reason Onset Date Comments Forms 06/24/2014 Encounter Details Date Type Department Care Team (Late st Contact Info) Description 06/24/2014 Telephone [facility] - Rheumatology [address] [place] [address] [phone] Isidro Heredia MD [address] [place] [address] Forms Social History Tobacco Use Types [...] well. I will call him once completed. ER HELPER * Telephone Encounter - Erika Julien - 06/24/2014 11:59 AM CST Pt wants to know what the statis is on his forms for work ER HELPER documented in this encounter Plan of Treatment Upcoming Encounters Date Type Department Care Team (Late st Contact Info) Description 06/03/2024 1:00 PM SAWYER HELPER Appointment [facility] - Rheumatology [address] [place] [address] [phone] 06/03/2024 2:00 PM SAWYER HELPER Office Visit [facility] - Rheumatology [address] [place] [address] Gloria Smith MD [address] [place] [address] [phone] documented as of this encounter Visit Diagnoses Not on filedocumented in this encounter Care Teams Python Django Developer Relationship Specialty Start Date End Date Tomas Hyman MD [address] [place] [address] PCP - General Family Medicine 12/31/13 05/09/18 Isidro Heredia MD Rheumatology 02/09/11 documented as of this encounter
--- OUTSIDE RECORDS SUMMARY | 2024-05-10 10:27 | XMS_ITS | Encounter Summary ---
Author Organization [facility] Address [address] [facility] [place] [address] Care Team Providers Care Cloth Finishing Range Operator Chief Name Role Phone Isidro Heredia MD Unavailable [phone] Tomas Hyman MD Primary Care Provider [phone] Encounter Details Date Type Department Care Team (Latest Contact Info) Description 04/14/2014 9:49 AM ANDROID IOS DEVELOPER - 04/14/2014 11:59 PM ANDROID IOS DEVELOPER Hospital Encounter [facility] [address] [place] [address] [place] [address] [address] [phone] Discharge Disposition: Home or Self Care Social [...] Comments Blood Pressure 146/96 04/14/2014 10:33 AM ANDROID IOS DEVELOPER Pulse 93 04/14/2014 10:33 AM ANDROID IOS DEVELOPER Temperature - - Respiratory Rate 16 04/14/2014 10:33 AM ANDROID IOS DEVELOPER Oxygen Saturation 98% 04/14/2014 10:33 AM ANDROID IOS DEVELOPER Inhaled Oxygen Concentration - - Weight - - Height - - Body Mass Index - - documented in this encounter Discharge Instructions * Patient Instructions* Ashlie Henao RN - 04/14/2014 10:06 AM ANDROID IOS DEVELOPER [facility] Pain Discharge Instructions Selective Epidural [...] headache, or any other problems, please call [phone] or after hours callDr. Mirza at [phone] and tell them your physician's name. The exchange will alert the physician distribution tech. If sedation is given: No sedation given. For Your Next Visit: No additional instructions. Other Instructions: May remove band-aid in 12 Hours. Return KIMBERLEY 2 in 1 week. Patient Signature: Date: RN Signature: Date: OID IOS DEVELOPER documented in this encounter Medications at Time of Discharge Medication Sig Dispensed Refills Start Date End Date Gsberfwfjiq-Bbxlsevta-Og t C-Mn (GLUCOSAMINE CHONDR 1500 COMPLX PO) [...] 5-325 MG tabletIndications:Rheuma toid arthritis(714.0) ([facility]) Take 1 Tab by mouth [...] Coumidin, Plavix or other blood thinners. Responsible milk wagon driver is not needed due to [...] Follow Up: 1 week Alejandro Mirza MD OID IOS DEVELOPER documented in this encounter Plan of Treatment Upcoming Encounters Date Type Department Care Team (Late st Contact Info) Description 06/03/2024 1:00 PM ANDROID IOS DEVELOPER Appointment [facility] - Rheumatology [address] [place] [address] 06/03/2024 2:00 PM ANDROID IOS DEVELOPER Office Visit [facility] - Rheumatology [address] [place] [address] Gloria Smith MD [address] [place] [address] [phone] documented as of this encounter Procedures Procedure Name Priority Date/Time Associated Diagnosis Comments PAIN MANAGEMENT PROCEDURE TIME Routine 04/14/2014 10:24 AM ANDROID IOS DEVELOPER Displacement Of Lumbar Intervertebral Disc Without Myelopathy Thoracic or lumbosacral neuritis or radiculitis, unspecified documented in this encounter Results * PAIN MANAGEMENT PROCEDURE TIME (04/14/2014 10:24 AM ANDROID IOS DEVELOPER) Anatomical Region Laterality Modality X-Ray Angiograph y Narrative 04/14/2014 10:32 AM ANDROID IOS DEVELOPER Alejandro Mirza MD ? 04/14/2014 10:32 AM [...] Coumidin, Plavix or other blood thinners. ??Responsible milk wagon driver is not needed due to [...] on Coumidin, Plavix or other bloodthinners. Responsible milk wagon driver is not needed due to the patient not havingsedation. The patient was placed in a prone position and was prepped withChloraprep. Procedure: Lidocaine 1% was injected with a 25 gauge needle at [id number] placement with the guided fluoroscopy. An 18 [...] Admin. by Other Provider 04/14/2014 10:16 AM ANDROID IOS DEVELOPER 80 mg documented in this encounter Care Teams Cloth Finishing Range Operator Chief Relationship Specialty Start Date End Date Tomas Hyman MD [address] [place] [address] PCP - General Family Medicine 12/31/13 05/09/18 Isidro Heredia MD Rheumatology 02/09/11 documented as of this encounter
--- OUTSIDE RECORDS SUMMARY | 2024-05-10 10:27 | XMS_ITS | Encounter Summary ---
Author Organization [facility] Address [address] [facility] [place] [address] Care Team Providers Care Senior Media Planner Name Role Phone Isidro Heredia MD Unavailable [phone] Tomas Hyman MD Primary Care Provider Encounter Details Date Type Department Care Team (Late Contact Info) Description 03/12/2014 Orders Only [facility] - Rheumatology [address] [place] [address] Isidro Heredia MD [address] [place] [address] Rheumatoid arthritis (HCC) Social History Tobacco [...] 10:02 PM CSTQuick Note: All labs ok L CUTTER documented in this encounter Plan of Treatment Upcoming Encounters Date Type Department Care Team (Late Contact Info) Description 06/03/2024 1:00 PM STEEL CUTTER Appointment [facility] - Rheumatology [address] [place] [address] 06/03/2024 2:00 PM STEEL CUTTER Office Visit [facility] - Rheumatology [address] [place] [address] Gloria Smtih MD [address] [place], [place] [address] [phone] documented as of this encounter Procedures Procedure Name Priority Date/Time Associated Diagnosis Comments ERYTHROCYTE SEDIMENTATION RATE Routine 03/12/2014 3:00 PM STEEL CUTTER Rheumatoid Arthritis (Hcc) CBC W AUTO DIFFERENTIAL Routine 03/12/2014 3:00 PM STEEL CUTTER Rheumatoid Arthritis (Hcc) COMPREHENSIVE METABOLIC PANEL Routine 03/12/2014 3:00 PM STEEL CUTTER Rheumatoid Arthritis (Hcc) documented in this encounter Results * SED RATE WESTERGREN (03/12/2014 3:00 PM STEEL CUTTER) Erythrocyte Sedimentation Rate Westergren 3 0 - 30 mm/hr [facility] INSURANCE BILL Blood specimen (specimen) BLOOD SPECIMEN / Unknown 03/12/2014 3:00 PM STEEL CUTTER 03/12/2014 6:44 PM STEEL CUTTER Narrative Resulting Agency Comment [facility] [address] ??[facility] [id number] Isidro Heredia MD LAB - HEMATOLOGY OR DERABLES [facility] INSURANCE BILL * (ABNORMAL) COMPREHENSIVE METABOLIC PANEL (03/12/2014 3:00 PM STEEL CUTTER) Glucose 101(H) 65 - 99 mg/dL [facility] [...] BLOOD SPECIMEN / Unknown 03/12/2014 3:00 PM STEEL CUTTER 03/12/2014 6:44 PM STEEL CUTTER Narrative Resulting Agency Comment [facility] [address] ??[facility] [id number] Isidro Heredia MD LAB - CHEMISTRY ORD ERABLES [facility] INSURANCE BILL * CBC W AUTO DIFFERENTIAL (03/12/2014 3:00 PM STEEL CUTTER) WBC 9.8 3.4 - 10.8 x10E3/uL [facility] [...] BLOOD SPECIMEN / Unknown 03/12/2014 3:00 PM STEEL CUTTER 03/12/2014 6:44 PM STEEL CUTTER Narrative Resulting Agency Comment [facility] [address] ??[facility] [id number] Isidro Heredia MD LAB - HEMATOLOGY OR DERABLES [facility] INSURANCE BILL documented in this encounter Visit Diagnoses Diagnosis Rheumatoid arthritis(714.0) ([facility])- Primary Rheumatoid arthritis documented in this encounter Care Teams Senior Media Planner Relationship Specialty Start Date End Date Tomas Hyman MD [address] [place] [address] PCP - General Family Medicine 12/31/13 05/09/18 Isidro Heredia MD Rheumatology 02/09/11 documented as of this encounter
--- OUTSIDE RECORDS SUMMARY | 2024-05-10 10:27 | XMS_ITS | Encounter Summary ---
Author Organization [facility] Address [address] [place] [address] Care Team Providers Care Deep Fat Cook Fry Name Role Phone Isidro Heredia MD Unavailable [phone] Tomas Hyman MD Primary Care Provider [phone] Reason for Visit * Reason Comments Rheumatoid Arthritis * Evaluate & Treat (Routine) - Closed Specialty Diagnoses / Procedures Referred By Lawrence t Referred To Contact Diagnoses Rheumatoid arthritis(714.0) (HCC) Procedures [place] OFFICE VISIT DURING HOURS Tomas Hyman MD [address] [facility] [address] [place] [address] Isidro Heredia MD [address] [place] [address] Referral ID Status Reason Start Date Expiration Date Visits Re quested Visits Authorized [id number] Closed 02/10/2014 02/10/2015 6 6 Encounter Details Date Type Department Care Team (Late st Contact Info) Description 07/13/2014 4:15 PM CDT Office Visit [facility] Medical [facility] - Rheumatology [address] [place] [address] Isidro Heredia MD [address] [place] [address] Rheumatoid arthritis(714.0) (HCC) (Primary Dx) Social [...] PO) Take by mouth once daily. ??? Tbisxmndlxo-Dukjhspeo-Foc C-Mn (GLUCOSAMINE CHONDR 1500 COMPLX PO) Take [...] Contact Info) Description 06/03/2024 1:00 PM HEALTH TECHNICIAN HEARING Appointment [facility] - Rheumatology [address] [place] [address] [phone] 06/03/2024 2:00 PM HEALTH TECHNICIAN HEARING Office Visit [facility] - Rheumatology [address] [place] [address] Gloria Smith MD [address] [place] [phone] documented as of this encounter Visit Diagnoses Diagnosis Rheumatoid arthritis(714.0) ([facility])- Primary Rheumatoid arthritis documented in this encounter Care Teams Deep Fat Cook Fry Relationship Specialty Start Date End Date Tomas Hyman MD [address] [facility] [address] [place] [address] PCP - General Family Medicine 12/31/13 05/09/18 Isidro Heredia MD Rheumatology 02/09/11 documented as of this encounter
--- OUTSIDE RECORDS SUMMARY | 2024-05-10 10:27 | XMS_ITS | Encounter Summary ---
Author Organization [facility] Address [address] [facility] [place] [address] Care Team Providers Care Director Of Social Services Name Role Phone Isidro Heredia MD Unavailable [phone] Tomas Hyman MD Primary Care Provider [phone] Reason for Visit * Treatment (Routine) - Closed Specialty Diagnoses / Procedures Referred By Lawrence shah Referred To Contact Infusion Therapy Nurse Diagnoses Rheumatoid arthritis(714.0) ([facility]) Procedures [place] INJECTION TOCILIZUMAB 1 MG Isidro Heredia MD [address] [place] [address] [phone] Referral ID Status Reason Start Date Expiration Date Visits Re quested Visits Authorized [id number] Closed 05/08/2014 10/05/2014 1 6 Encounter Details Date Type Department Care Team (Late st Contact Info) Description 06/08/2014 3:53 PM CARTON FILLER - 06/08/2014 11:59 PM CARTON FILLER Hospital Encounter [facility] Medical [facility] - Rheumatology [address] [place] [address] Isidro Heredia MD [address] [place] [address] Discharge Disposition: Home or Self [...] Comments Blood Pressure 141/94 06/08/2014 4:15 PM CARTON FILLER Pulse 107 06/08/2014 4:15 PM CARTON FILLER Temperature 36.8 ??C (98.2 ??F) 06/08/2014 4:15 PM CS T Respiratory Rate 16 06/08/2014 4:15 PM CARTON FILLER Oxygen Saturation - - Inhaled Oxygen Concentration - - Weight - - Height - - Body Mass Index - - documented in this encounter Discharge Instructions * Discharge Instructions* Carlos Foreman RN - 06/08/2014 4:59 PM CARTON FILLER ID Rheumatology Post Infusion instructions You have [...] through Sunday 9-5 call the office at [phone] After hours or on the weekend call the exchange at [phone] If you have had lab work done [...] Hospital as your provider. Carlos Foreman RN ON FILLER documented in this encounter Medications at Time of Discharge Medication Sig Dispensed Refills Start Date End Date Qngzktjuoll-Ucfejtxhw-Ky t C-Mn (GLUCOSAMINE CHONDR 1500 COMPLX PO) [...] 0.9% NaCl 0.9 % 100 mLIndications:Rheumatoid arthritis(714.0) ([facility]) Pt to receive IV infusion 800mg [...] - 06/08/2014 5:11 PM CST JOSE Deng [id number] 06/08/2014 Diagnosis: Rheumatoid arthritis [714.0]. Patient questionnaire [...] Yes Next treatment? 4wk Carlos Foreman RN ON FILLER documented in this encounter Plan of Treatment Upcoming Encounters Date Type Department Care Team (Late st Contact Info) Description 06/03/2024 1:00 PM CARTON FILLER Appointment [facility] - Rheumatology [address] [place] [address] 06/03/2024 2:00 PM CARTON FILLER Office Visit [facility] - Rheumatology [address] [place] [address] Gloria Smith MD [address] [place] [phone] documented as of this encounter Visit Diagnoses [...] 1345, 2 vials used of Actemra 400MG [facility] 94435-127-76 with 0 WASTE $ Given 06/08/2014 4:10 PM CARTON FILLER 800 mg 140 m L/hr documented in this encounter Care Teams Director Of Social Services Relationship Specialty Start Date End Date Tomas Hyman MD [address] [place] [address] PCP - General Family Medicine 12/31/13 05/09/18 Isidro Heredia MD Rheumatology 02/09/11 documented as of this encounter
--- OUTSIDE RECORDS SUMMARY | 2024-05-10 10:27 | XMS_ITS | Encounter Summary ---
Author Organization [facility] Address [address] [facility] [place] [address] Care Team Providers Care Seasonal Tax Preparer Name Role Phone Isidro Heredia MD Unavailable Tomas Hyman MD Primary Care Provider Reason for Visit * Reason Comments Rheumatoid Arthritis * Evaluate & Treat (Routine) - Closed Specialty Diagnoses / Procedures Referred By Lawrence shah Referred To Contact Diagnoses Rheumatoid arthritis(714.0) (HCC) Procedures [place] OFFICE VISIT DURING HOURS Tomas Hyman MD [address] [place] [address] Isidro Heredia MD [address] [place] [phone] Referral ID Status Reason Start Date Expiration Date Visits Re quested Visits Authorized [id number] Closed 08/12/2014 02/08/2015 3 3 Encounter Details Date Type Department Care Team (Late st Contact Info) Description 09/09/2014 3:00 PM CDT Office Visit [facility] Medical [facility] - Rheumatology [address] [place] [address] Isidro Heredia MD [address] [place] [address] Rheumatoid arthritis(714.0) (HCC) (Primary Dx); Chronic [...] PO) Take by mouth once daily. ??? Sehvuzxjwoc-Zihoxgfms-Jtc C-Mn (GLUCOSAMINE CHONDR 1500 COMPLX PO) Take [...] st Contact Info) Description 06/03/2024 1:00 PM THEATER USHER Appointment [facility] - Rheumatology [address] [place] [address] 06/03/2024 2:00 PM THEATER USHER Office Visit [facility] Medical [facility] - Rheumatology [address] [place] [address] [phone] Gloria Smith MD [address] [place] [phone] documented as of this encounter Visit Diagnoses Diagnosis Rheumatoid arthritis(714.0) ([facility])- Primary Rheumatoid arthritis Chronic pain syndrome Lumbar radiculopathy Thoracic or lumbosacral neuritis or radiculitis, unspecified documented in this encounter Care Teams Seasonal Tax Preparer Relationship Specialty Start Date End Date Tomas Hyman MD [address] [facility] [address] [place] [address] PCP - General Family Medicine 12/31/13 05/09/18 Isidro Heredia MD Rheumatology 02/09/11 documented as of this encounter
--- OUTSIDE RECORDS SUMMARY | 2024-05-10 10:27 | XMS_ITS | Encounter Summary ---
Author Organization [facility] Address [address] [place] [address] Care Team Providers Care Vice President Of Nursing Name Role Phone Isidro Heredia MD Unavailable Tomas Hyman MD Primary Care Provider [phone] Reason for Visit * Reason Onset Date Comments Letter for School or Work 03/13/2014 Encounter Details Date Type Department Care Team (Late st Contact Info) Description 03/13/2014 Telephone [facility] - Rheumatology [address] [place] [address] Isidro Heredia MD [address] [place] [address] Letter for School or Work Social [...] 3:26 PM CST Informed pt of message LER TIER * Telephone Encounter - Rea Hagan MA - 03/13/2014 3:18 PM CST Please let pt know his letter will be at the front desk representative for pickle maker. LER TIER * Telephone Encounter - Hai Rodriguezdoreen - 03/13/2014 2:32 PM CST wrote letter for pt's employer, but it didn't state that it was related to RA. Pt needs a revised letter that states pt's condition is related to his RA. Pt notes he wants to pickle maker revised letter on 03/17/14. Please call with any questions at work number if calling within next couple of hours; otherwise call pt on mobile number. LER TIER documented in this encounter Plan of Treatment Upcoming Encounters Date Type Department Care Team (Late st Contact Info) Description 06/03/2024 1:00 PM HEDDLER TIER Appointment [facility] - Rheumatology [address] [place] [address] 06/03/2024 2:00 PM HEDDLER TIER Office Visit [facility] - Rheumatology [address] [place] [address] Gloria Smith MD [address] [place] [phone] documented as of this encounter Visit Diagnoses Not on filedocumented in this encounter Care Teams Vice President Of Nursing Relationship Specialty Start Date End Date Tomas Hyman MD [address] [facility] [address] [place] [address] PCP - General Family Medicine 12/31/13 05/09/18 Isidro Heredia MD Rheumatology 02/09/11 documented as of this encounter
--- OUTSIDE RECORDS SUMMARY | 2024-05-10 10:27 | XMS_ITS | Encounter Summary ---
Author Organization [facility] Address [address] [facility] [place] [address] Care Team Providers Care Pediatric Urologist Name Role Phone Nolberto Nicole MD Primary Care Provider [phone] Isidro Heredia MD Unavailable [phone] Encounter Details Date Type Department Care Team (Late st Contact Info) Description 12/12/2013 Orders Only [facility] Medical [facility] - Rheumatology [address] [place] [address] Isidro Heredia MD [address] [place] [address] Other and unspecified hyperlipidemia Social History [...] st Contact Info) Description 06/03/2024 1:00 PM QA LEAD Appointment [facility] - Rheumatology [address] [place] [address] [phone] 06/03/2024 2:00 PM QA LEAD Office Visit [facility] - Rheumatology [address] [place] [address] Gloria Smith MD [address] [place] [phone] documented as of this encounter Procedures [...] PM CDT Narrative Resulting Agency Comment [facility] [place] [address] [facility] ??[facility] [phone] Isidro Heredia MD LAB - CHEMISTRY ORD ERABLES [facility] INSURANCE BILL documented in this encounter Visit Diagnoses Diagnosis Other and unspecified hyperlipidemia- Primary documented in this encounter Care Teams Pediatric Urologist Relationship Specialty Start Date End Date Nolberto Nicole MD PCP - General 07/21/08 12/30/13 Isidro Heredia MD Rheumatology 02/09/11 documented as of this encounter
--- OUTSIDE RECORDS SUMMARY | 2024-05-10 10:27 | XMS_ITS | Encounter Summary ---
Author Organization [facility] Address [address] [facility] [place] [address] Care Team Providers Care Home Health Lpn Name Role Phone Isidro Heredia MD Unavailable [phone] Tomas Hyman MD Primary Care Provider [phone] Reason for Visit * Treatment (Routine) - Closed Specialty Diagnoses / Procedures Referred By Lawrence shah Referred To Contact Infusion Therapy Nurse Diagnoses Rheumatoid arthritis(714.0) (FORMERLY [facility]) Procedures VA INJECTION TOCILIZUMAB 1 MG Isidro Heredia MD [address] [place] [address] [phone] Referral ID Status Reason Start Date Expiration Date Visits Re quested Visits Authorized [id number] Closed 05/08/2014 10/05/2014 1 6 Encounter Details Date Type Department Care Team (Late st Contact Info) Description 08/12/2014 10:23 AM CDT - 08/12/2014 11:59 PM CDT Hospital Encounter [facility] Medical [facility] - Rheumatology [address] [place] [address] Isidro Heredia MD [address] [place] [address] Discharge Disposition: Home or Self [...] Sierra RN - 08/12/2014 10:44 AM CDT [place] Rheumatology Post Infusion instructions You [...] Sunday through 01-02 call the office at [phone] After hours or on the weekend call the exchange at [phone] If you have had lab work done [...] have chosen [facility] as your provider. Manisha Sierra RN documented in this encounter Medications at Time of Discharge Medication Sig Dispensed Refills Start Date End Date Cramqndyjtt-Syxftnbap-Wi t C-Mn (GLUCOSAMINE CHONDR 1500 COMPLX PO) [...] - 08/12/2014 10:48 AM CDT JOSE Deng [id number] 08/12/2014 Diagnosis: Rheumatoid arthritis [714.0]. Patient questionnaire [...] st Contact Info) Description 06/03/2024 1:00 PM FOOD SERVICE SUPERVISOR Appointment [facility] - Rheumatology [address] [place] [address] [phone] 06/03/2024 2:00 PM FOOD SERVICE SUPERVISOR Office Visit [facility] - Rheumatology [address] [place] [address] Gloria Smith MD [address] [place] [phone] documented as of this encounter Visit Diagnoses [...] 1030, 2 vials used of Actemra 400MG FORMERLY NAMED [facility] [id number] with 0 WASTE $ Given 08/12/2014 10:47 AM CDT 800 mg 140 mL/hr documented in this encounter Care Teams Home Health Lpn Relationship Specialty Start Date End Date Tomas Hyman MD [address] [facility] [address] [place] [address] PCP - General Family Medicine 12/31/13 05/09/18 Isidro Heredia MD Rheumatology 02/09/11 documented as of this encounter
--- OUTSIDE RECORDS SUMMARY | 2024-05-10 10:27 | XMS_ITS | Encounter Summary ---
Author Organization [facility] Address [address] [facility] [place] [address] Care Team Providers Care Music Coordinator Name Role Phone Nolberto Nicole MD Primary Care Provider [phone] Isidro Heredia MD Unavailable [phone] Reason for Visit * Reason Onset Date Comments Rheumatoid Arthritis 12/30/2013 Pain Back 12/30/2013 Lower Extremity Problem 12/30/2013 Encounter Details Date Type Department Care Team (Late st Contact Info) Description 12/30/2013 Telephone [facility] - Rheumatology [address] [place] [address] Isidro Heredia MD [address] [place] [address] Rheumatoid Arthritis; Pain Back; Lower Extremity [...] st Contact Info) Description 06/03/2024 1:00 PM SECURITIES SALES ASSOCIATE Appointment [facility] - Rheumatology [address] [place] [address] 06/03/2024 2:00 PM SECURITIES SALES ASSOCIATE Office Visit [facility] - Rheumatology [address] [place] [address] Gloria Smith MD [address] [place] [phone] documented as of this encounter Visit Diagnoses Not on filedocumented in this encounter Care Teams Music Coordinator Relationship Specialty Start Date End Date Nolberto Nicole MD PCP - General 07/21/08 12/30/13 Isidro Heredia MD Rheumatology 02/09/11 documented as of this encounter
--- OUTSIDE RECORDS SUMMARY | 2024-05-10 10:27 | XMS_ITS | Encounter Summary ---
Author Organization [facility] Address [address] [facility] [place] [address] Care Team Providers Care Cpo Name Role Phone Isidro Heredia MD Unavailable [phone] Tomas Hyman MD Primary Care Provider [phone] Encounter Details Date Type Department Care Team (Late st Contact Info) Description 06/08/2014 Orders Only [facility] - Family Medicine [address] [place] [address] Isidro Heredia MD [address] [place] [address] Rheumatoid arthritis (HCC) Social History Tobacco [...] 3:18 PM CSTQuick Note: mtx ok meron HIC EDITOR * Rea Hagan MA - 06/08/2014 4:31 PM CST Pt here for infusion, Test ordered: cbc, cmp, sed rate HIC EDITOR documented in this encounter Plan of Treatment Upcoming Encounters Date Type Department Care Team (Late st Contact Info) Description 06/03/2024 1:00 PM GRAPHIC EDITOR Appointment [facility] - Rheumatology [address] [place] [address] [phone] 06/03/2024 2:00 PM GRAPHIC EDITOR Office Visit [facility] - Rheumatology [address] [place] [address] Gloria Smith MD [address] [place] [phone] documented as of this encounter Procedures Procedure Name Priority Date/Time Associated Diagnosis Comments ERYTHROCYTE SEDIMENTATION RATE Routine 06/08/2014 4:55 PM GRAPHIC EDITOR Rheumatoid Arthritis (Hcc) CBC W AUTO DIFFERENTIAL Routine 06/08/2014 4:55 PM GRAPHIC EDITOR Rheumatoid Arthritis (Hcc) COMPREHENSIVE METABOLIC PANEL Routine 06/08/2014 4:55 PM GRAPHIC EDITOR Rheumatoid Arthritis (Hcc) documented in this encounter Results * SED RATE WESTERGREN (06/08/2014 4:55 PM GRAPHIC EDITOR) Erythrocyte Sedimentation Rate Westergren 10 0 - 30 mm/hr [facility] INSURANCE BILL Blood specimen (specimen) BLOOD SPECIMEN / Unknown 06/08/2014 4:55 PM GRAPHIC EDITOR 06/08/2014 7:25 PM GRAPHIC EDITOR Narrative Resulting Agency Comment [facility] [address] [facility] ??[facility] [id number] Isidro Heredia MD LAB - HEMATOLOGY OR DERABLES [facility] INSURANCE BILL * (ABNORMAL) COMPREHENSIVE METABOLIC PANEL (06/08/2014 4:55 PM GRAPHIC EDITOR) Glucose 111(H) 65 - 99 mg/dL [facility] [...] BLOOD SPECIMEN / Unknown 06/08/2014 4:55 PM GRAPHIC EDITOR 06/08/2014 7:25 PM GRAPHIC EDITOR Narrative Resulting Agency Comment [facility] [address] ??[facility] [id number] Isidro Heredia MD LAB - CHEMISTRY ORD ERABLES [facility] INSURANCE BILL * (ABNORMAL) CBC W AUTO DIFFERENTIAL (06/08/2014 4:55 PM GRAPHIC EDITOR) WBC 9.3 3.4 - 10.8 x10E3/uL [facility] [...] BLOOD SPECIMEN / Unknown 06/08/2014 4:55 PM GRAPHIC EDITOR 06/08/2014 7:25 PM GRAPHIC EDITOR Narrative Resulting Agency Comment [facility] [address] ??[facility] [phone] Isidro Heredia MD LAB - HEMATOLOGY OR DERABLES [facility] INSURANCE BILL documented in this encounter Visit Diagnoses Diagnosis Rheumatoid arthritis(714.0) (HCC)- Primary Rheumatoid arthritis documented in this encounter Care Teams Cpo Relationship Specialty Start Date End Date Tomas Hyman MD [address] [facility] [address] [place] [address] PCP - General Family Medicine 12/31/13 05/09/18 Isidro Heredia MD Rheumatology 02/09/11 documented as of this encounter
--- OUTSIDE RECORDS SUMMARY | 2024-05-10 10:27 | XMS_ITS | Encounter Summary ---
Author Organization [facility] Address [address] [facility] [place] [address] Care Team Providers Care Social Service Technician Name Role Phone Isidro Heredia MD Unavailable [phone] Tomas Hyman MD Primary Care Provider [phone] Encounter Details Date Type Department Care Team (Latest Contact Info) Description 03/10/2014 10:19 AM TRUST OPERATIONS ASSISTANT - 03/10/2014 11:59 PM TRUST OPERATIONS ASSISTANT Hospital Encounter [facility] [address] [place] [address] [place] [address] [place] [phone] Discharge Disposition: Home or Self Care Social [...] Comments Blood Pressure 153/106 03/10/2014 11:12 AM TRUST OPERATIONS ASSISTANT Pulse 110 03/10/2014 11:12 AM TRUST OPERATIONS ASSISTANT Temperature - - Respiratory Rate 16 03/10/2014 11:12 AM TRUST OPERATIONS ASSISTANT Oxygen Saturation 98% 03/10/2014 11:12 AM TRUST OPERATIONS ASSISTANT Inhaled Oxygen Concentration - - Weight - - Height - - Body Mass Index - - documented in this encounter Discharge Instructions * Patient Instructions* Nena Pond RN - 03/10/2014 10:32 AM TRUST OPERATIONS ASSISTANT [facility] Procedure Center Pain Discharge Instructions [...] headache, or any other problems, please call [phone] or after hours call Dr. Mirza at [phone] and tell them your physician's name. The exchange will alert the physician professional organizer. If sedation is given: No sedation given. For Your Next Visit: No additional instructions. Other Instructions: May remove band-aid in 12 Hours. Return in one week for TFE #2. Patient Signature: Date: RN Signature: Date: T OPERATIONS ASSISTANT documented in this encounter Medications at Time of Discharge Medication Sig Dispensed Refills Start Date End Date Wjewdobyrsv-Xrdqtjvlj-Lw t C-Mn (GLUCOSAMINE CHONDR 1500 COMPLX PO) [...] identified, and marked by Dr. Mirza. Responsible horse and wagon driver is not needed due to [...] Add Levels Lumb/Sac, Fluoro. Alejandro Mirza MD T OPERATIONS ASSISTANT documented in this encounter Plan of Treatment Upcoming Encounters Date Type Department Care Team (Late st Contact Info) Description 06/03/2024 1:00 PM TRUST OPERATIONS ASSISTANT Appointment [facility] - Rheumatology [address] [place] [address] [phone] 06/03/2024 2:00 PM TRUST OPERATIONS ASSISTANT Office Visit [facility] - Rheumatology [address] [place] [address] [phone] Gloria Smith MD [address] [place] [phone] documented as of this encounter Procedures Procedure Name Priority Date/Time Associated Diagnosis Comments PAIN MANAGEMENT PROCEDURE TIME Routine 03/10/2014 11:10 AM TRUST OPERATIONS ASSISTANT Displacement Of Lumbar Intervertebral Disc Without Myelopathy Thoracic or lumbosacral neuritis or radiculitis, unspecified documented in this encounter Results * PAIN MANAGEMENT PROCEDURE TIME (03/10/2014 11:10 AM TRUST OPERATIONS ASSISTANT) Anatomical Region Laterality Modality X-Ray Angiograph y Narrative 03/10/2014 11:16 AM TRUST OPERATIONS ASSISTANT Alejandro Mirza MD ? 03/10/2014 11:16 AM [...] identified, and marked by Dr. Mirza. ??Responsible horse and wagon driver is not needed due to [...] site identified, andmarked by Dr. Mirza. Responsible horse and wagon driver is not needed due to [...] Admin. by Other Provider 03/10/2014 10:45 AM TRUST OPERATIONS ASSISTANT 10 mg lidocaine (XYLOCAINE MPF) 1 % injection Infiltration, ONCE, 1 dose, On Sun03/10/14 at 1100 $ Admin. by Other Provider 03/10/2014 10:45 AM TRUST OPERATIONS ASSISTANT 5 mL documented in this encounter Care Teams Social Service Technician Relationship Specialty Start Date End Date Tomas Hyman MD [address] [facility] [address] [place] [address] PCP - General Family Medicine 12/31/13 05/09/18 Isidro Heredia MD Rheumatology 02/09/11 documented as of this encounter
--- OUTSIDE RECORDS SUMMARY | 2024-05-10 10:28 | XMS_ITS | Encounter Summary ---
Author Organization [facility] Address [address] [facility] [place] [address] Care Team Providers Care Baffle Mounter Name Role Phone Nolberto Nicole MD Primary Care Provider [phone] Isidro Heredia MD Unavailable [phone] Encounter Details Date Type Department Care Team (Late st Contact Info) Description 08/19/2012 12:39 PM CDT - 08/19/2012 11:59 PM CDT Hospital Encounter [facility] Medical [facility] - Rheumatology [address] [place] [address] Isidro Heredia MD [address] [place] [address] Discharge Disposition: Home or Self Care [...] Foreman RN - 08/19/2012 1:01 PM CDT [place] Rheumatology Post Infusion instructions [...] through Sunday 9-5 call the office at [phone] After hours or on the weekend call the exchange at [phone] If you have had lab work done [...] [facility] as your provider. Carlos Foreman RN * Discharge Instructions* Document, Scanned - 09/02/2012 5:20 PM CDT documented in this encounter Medications at Time of Discharge Medication Sig Dispensed Refills Start Date End Date Jfuyskublkj-Grtdtjeqk-Fh t C-Mn (GLUCOSAMINE CHONDR 1500 COMPLX PO) [...] 08/19/2012 1:02 PM CDT JOSE Chalino Deng [id number] 08/19/2012 Patient questionnaire results Health Assessment Questionnaire [...] Contact Info) Description 06/03/2024 1:00 PM CHEF KITCHEN MANAGER Appointment [facility] - Rheumatology [address] [place] [address] 06/03/2024 2:00 PM CHEF KITCHEN MANAGER Office Visit [facility] - Rheumatology [address] [place] [address] Gloria Smith MD [address] [place] [phone] documented as of this encounter Visit [...] mg documented in this encounter Care Teams Baffle Mounter Relationship Specialty Start Date End Date Nolberto Nicole MD PCP - General 07/21/08 12/30/13 Isidro Heredia MD Rheumatology 02/09/11 documented as of this encounter
--- OUTSIDE RECORDS SUMMARY | 2024-05-10 10:28 | XMS_ITS | Encounter Summary ---
Author Organization [facility] Address [address] [facility] [place] [address] Care Team Providers Care Buffing Wheel Former Automatic Name Role Phone Nolberto Nicole MD Primary Care Provider Isidro Heredia MD Unavailable [phone] Encounter Details Date Type Department Care Team (Late st Contact Info) Description 07/09/2013 Orders Only [facility] - Rheumatology [address] [place] [address] Isidro Heredia MD [address] [place] [address] Rheumatoid arthritis (HCC) ; Other and [...] st Contact Info) Description 06/03/2024 1:00 PM NUTRITION SERVICES ASSISTANT Appointment [facility] - Rheumatology [address] [place] [address] [phone] 06/03/2024 2:00 PM NUTRITION SERVICES ASSISTANT Office Visit [facility] - Rheumatology [address] [place] [address] Gloria Smith MD [address] [place] [phone] documented as of this encounter Procedures [...] CDT Narrative Resulting Agency Comment [facility] [address] ??[facility] [phone] Isidro Heredia MD LAB - HEMATOLOGY OR [...] CDT Narrative Resulting Agency Comment [facility] [address] ??[facility] [phone] Isidro Heredia MD LAB - CHEMISTRY ORD [...] CDT Narrative Resulting Agency Comment [facility] [address] ??[facility] [phone] Isidro Heredia MD LAB - HEMATOLOGY OR [...] CDT Narrative Resulting Agency Comment [facility] [address] ??[facility] [phone] Isidro Heredia MD LAB - CHEMISTRY ORD ERABLES [facility] INSURANCE BILL documented in this encounter Visit Diagnoses Diagnosis Rheumatoid arthritis(714.0) (FORMERLY [facility])- Primary Rheumatoid arthritis Other and unspecified hyperlipidemia documented in this encounter Care Teams Buffing Wheel Former Automatic Relationship Specialty Start Date End Date Nolberto Nicole MD PCP - General 07/21/08 12/30/13 Isidro Heredia MD Rheumatology 02/09/11 documented as of this encounter
--- OUTSIDE RECORDS SUMMARY | 2024-05-10 10:28 | XMS_ITS | Encounter Summary ---
Author Organization [facility] Address [address] [facility] [place] [address] Care Team Providers Care Kindergarten Prep Teacher Name Role Phone Nolberto Nicole MD Primary Care Provider Isidro Heredia MD Unavailable [phone] Reason for Visit * Reason Comments Chest Pain Encounter Details Date Type Department Care Team (Late Contact Info) Description 03/21/2013 1:15 PM BELT KNIFE FEEDER Procedure visit [facility] - Family Medicine [address] [place] [address] Pleurisy Social History Tobacco Use Types [...] XR CHEST PA AND LATERAL CXR: NAD KNIFE FEEDER documented in this encounter Plan of Treatment Upcoming Encounters Date Type Department Care Team (Late Contact Info) Description 06/03/2024 1:00 PM BELT KNIFE FEEDER Appointment [facility] - Rheumatology [address] [place] [address] 06/03/2024 2:00 PM BELT KNIFE FEEDER Office Visit [facility] - Rheumatology [address] [place] [address] Gloria Smith MD [address] [place] [phone] documented as of this encounter Procedures Procedure Name Priority Date/Time Associated Diagnosis Comments XR CHEST 2VW Routine 03/24/2013 6:23 PM BELT KNIFE FEEDER Pleurisy documented in this encounter Results * XR CHEST PA AND LATERAL (03/24/2013 6:23 PM BELT KNIFE FEEDER) Anatomical Region Laterality Modality Chest Other Narrative 03/24/2013 6:23 PM BELT KNIFE FEEDER Isidro Heredia MD ? 03/24/2013 ??6:23 PM CXR: ??NAD Procedure Note Isidro Heredia MD - 03/24/2013 6:22 PM CST CXR: NAD Isidro Heredia MD DIAGNOSTIC IMAGING ORDERABLES documented in this encounter Visit Diagnoses Diagnosis Pleurisy- Primary documented in this encounter Care Teams Kindergarten Prep Teacher Relationship Specialty Start Date End Date Nolberto Nicole MD PCP - General 07/21/08 12/30/13 Isidro Heredia MD Rheumatology 02/09/11 documented as of this encounter
--- OUTSIDE RECORDS SUMMARY | 2024-05-10 10:28 | XMS_ITS | Encounter Summary ---
Author Organization [facility] Address [address] [facility] [place] [address] Care Team Providers Care Brewing Director Name Role Phone Nolberto Nicole MD Primary Care Provider [phone] Isidro Heredia MD Unavailable [phone] Reason for Visit * Treatment (Routine) - Closed Specialty Diagnoses / Procedures Referred By Lawrence sahh Referred To Contact Infusion Therapy Nurse Diagnoses Rheumatoid arthritis(714.0) ([facility]LY [facility]) Procedures DC INJECTION TOCILIZUMAB 1 MG Isidro Heredia MD [address] [place] [address] Referral ID Status Reason Start Date Expiration Date Visits Re quested Visits Authorized [id number] Closed 05/01/2013 04/29/2014 1 12 Encounter Details Date Type Department Care Team (Late st Contact Info) Description 09/04/2013 2:30 PM CDT - 09/04/2013 11:59 PM CDT Hospital Encounter [facility] - Rheumatology [address] [place] [address] Isidro Heredia MD [address] [place] [address] Discharge Disposition: Home or Self [...] Foreman RN - 09/04/2013 3:08 PM CDT [place] Rheumatology Post Infusion instructions [...] through Sunday 9-5 call the office at [phone] After hours or on the weekend call the exchange at [phone] If you have had lab work done [...] Sig Dispensed Refills Start Date End Date Syzldzfnokb-Wyagjtjvp-Ug t C-Mn (GLUCOSAMINE CHONDR 1500 COMPLX PO) [...] - 09/04/2013 3:05 PM CDT JOSE Deng [id number] 09/04/2013 Diagnosis: Rheumatoid arthritis [714.0]. Patient questionnaire [...] Contact Info) Description 06/03/2024 1:00 PM SAFETY DIRECTOR Appointment [facility] - Rheumatology [address] [place] [address] 06/03/2024 2:00 PM SAFETY DIRECTOR Office Visit [facility] - Rheumatology [address] [place] [address] Gloria Smith MD [address] [place] [phone] documented as of this encounter Visit [...] mL/hr documented in this encounter Care Teams Brewing Director Relationship Specialty Start Date End Date Nolberto Nicole MD PCP - General 07/21/08 12/30/13 Isidro Heredia MD Rheumatology 02/09/11 documented as of this encounter
--- OUTSIDE RECORDS SUMMARY | 2024-05-10 10:28 | XMS_ITS | Encounter Summary ---
Author Organization [facility] Address [address] [facility] [place] [address] Care Team Providers Care Artificial Insemination Technician Name Role Phone Nolberto Nicole MD [...] To Contact Diagnoses Rheumatoid arthritis(714.0) ([facility]) Procedures [place] OFFICE VISIT DURING HOURS Nolberto Nicole MD [address] [place] [address] Isidro Heredia MD [address] [place] [address] Referral ID Status Reason Start Date Expiration Date Visits Re quested Visits Authorized [id number] Closed 07/02/2012 12/29/2012 1 6 Encounter Details Date Type Department Care Team (Late st Contact Info) Description 08/19/2012 4:45 PM CDT Office Visit [facility] Medical [facility] - Rheumatology [address] [place] [address] [phone] Isidro Heredia MD [address] [place] [address] Rheumatoid arthritis (HCC) (Primary Dx); [...] PO) Take by mouth once daily. ??? Edkpfqwtqhk-Yzpamhnua-Byx C-Mn (GLUCOSAMINE CHONDR 1500 COMPLX PO) Take [...] Contact Info) Description 06/03/2024 1:00 PM BUSINESS DEVELOPMENT PROFESSIONAL Appointment [facility] - Rheumatology [address] [place] [address] 06/03/2024 2:00 PM BUSINESS DEVELOPMENT PROFESSIONAL Office Visit [facility] - Rheumatology [address] [place] [address] Gloria Smith MD [address] [place] [phone] documented as of this encounter Visit Diagnoses Diagnosis Rheumatoid arthritis(714.0) (HCC)- Primary Rheumatoid arthritis Chronic pain syndrome documented in this encounter Care Teams Artificial Insemination Technician Relationship Specialty Start Date End Date Nolberto Nicole MD PCP - General 07/21/08 12/30/13 Isidro Heredia MD Rheumatology 02/09/11 documented as of this encounter
--- OUTSIDE RECORDS SUMMARY | 2024-05-10 10:28 | XMS_ITS | Encounter Summary ---
Author Organization [facility] Address [address] [facility] [place] [address] Care Team Providers Care Archivist Economic History Name Role Phone Nolberto Nicole MD Primary Care Provider [phone] Isidro Heredia MD Unavailable [phone] Reason for Visit * Reason Comments Cough Encounter Details Date Type Department Care Team (Latest Contact Info) Description 07/22/2012 4:15 PM CDT Procedure visit [facility] Family Medicine [address] [place] [address] Rheumatoid arthritis (HCC) Social History Tobacco [...] Contact Info) Description 06/03/2024 1:00 PM ICE CREAM FREEZER ASSISTANT Appointment [facility] - Rheumatology [address] [place] [address] 06/03/2024 2:00 PM ICE CREAM FREEZER ASSISTANT Office Visit [facility] - Rheumatology [address] [place] [address] Gloria Smith MD [address] [place] [phone] documented as of this encounter Procedures Procedure Name Priority Date/Time Associated Diagnosis Comments XR CHEST 2VW Routine 09/10/2012 4:17 PM CDT Rheumatoid arthritis (HCC) documented in this encounter Visit Diagnoses Diagnosis Rheumatoid arthritis(714.0) (HCC) Rheumatoid arthritis documented in this encounter Care Teams Archivist Economic History Relationship Specialty Start Date End Date Nolberto Nicole MD PCP - General 07/21/08 12/30/13 Isidro Heredia MD Rheumatology 02/09/11 documented as of this encounter
--- OUTSIDE RECORDS SUMMARY | 2024-05-10 10:28 | XMS_ITS | Encounter Summary ---
Author Organization [facility] Address [address] [facility] [place] [address] Care Team Providers Care Crystal Machining Coordinator Name Role Phone Nolberto Nicole MD Primary Care Provider [phone] Isidro Heredia MD Unavailable [phone] Encounter Details Date Type Department Care Team (Late st Contact Info) Description 09/02/2012 8:57 AM CDT - 09/02/2012 11:59 PM CDT Hospital Encounter [facility] Medical [facility] - Rheumatology [address] [place] [address] Isidro Heredia MD [address] [place] [address] Discharge Disposition: Home or Self Care [...] Rodrigez RN - 09/02/2012 9:23 AM CDT [place] Rheumatology Post Infusion instructions You [...] Sunday through 01-02 call the office at [phone] After hours or on the weekend call the exchange at [phone] If you have had lab work done [...] have chosen [facility] as your provider. Mirela Rodrigez RN * Discharge Instructions* Document, Scanned - 09/08/2012 2:12 PM CDT documented in this encounter Medications at Time of Discharge Medication Sig Dispensed Refills Start Date End Date Nzodcmlbkyd-Agwscdxqb-Pc t C-Mn (GLUCOSAMINE CHONDR 1500 COMPLX PO) [...] - 09/02/2012 9:29 AM CDT JOSE Deng [id number] 09/02/2012 BP 143/95 Pulse 89 Temp 98.6 [...] st Contact Info) Description 06/03/2024 1:00 PM BLEND TECHNICIAN Appointment [facility] - Rheumatology [address] [place] [address] 06/03/2024 2:00 PM BLEND TECHNICIAN Office Visit [facility] - Rheumatology [address] [place] [address] Gloria Smith MD [address] [place] [phone] documented as of this encounter Visit [...] mg documented in this encounter Care Teams Crystal Machining Coordinator Relationship Specialty Start Date End Date Nolberto Nicole MD PCP - General 07/21/08 12/30/13 Isidro Heredia MD Rheumatology 02/09/11 documented as of this encounter
--- OUTSIDE RECORDS SUMMARY | 2024-05-10 10:28 | XMS_ITS | Encounter Summary ---
Author Organization [facility] Address [address] [facility] [place] [place] [address] Care Team Providers Care Primary Teaching Assistant Name Role Phone Nolberto Nicole MD Primary Care Provider [phone] Isidro Heredia MD Unavailable [phone] Reason for Visit * Reason Onset Date Comments MEDICATION REFILL 03/17/2013 Encounter Details Date Type Department Care Team (Late st Contact Info) Description 03/17/2013 Refill [facility] Medical [facility] - Rheumatology [address] [place] [address] Isidro Heredia MD [address] [place] [address] MEDICATION REFILL Social History Tobacco Use [...] CST Informed pt of message for refill ON GUARD SUPERVISOR * Telephone Encounter - Rea Hagan MA - 03/17/2013 2:54 PM CST This is ok. Mtx was sent to pharm. Can someone put in the reason for visit ON GUARD SUPERVISOR * Telephone Encounter - Carey Loza - 03/17/2013 10:42 AM CST Patient is having issues with his referral to see the Doctor but needs a script called [facility] for his methotrexate. ON GUARD SUPERVISOR documented in this encounter Plan of Treatment Upcoming Encounters Date Type Department Care Team (Late st Contact Info) Description 06/03/2024 1:00 PM PRISON GUARD SUPERVISOR Appointment [facility] - Rheumatology [address] [place] [address] 06/03/2024 2:00 PM PRISON GUARD SUPERVISOR Office Visit [facility] - Rheumatology [address] [place] [address] Gloria Smith MD [address] [place] [phone] documented as of this encounter Visit Diagnoses Not on filedocumented in this encounter Care Teams Primary Teaching Assistant Relationship Specialty Start Date End Date Nolberto Nicole MD PCP - General 07/21/08 12/30/13 Isidro Heredia MD Rheumatology 02/09/11 documented as of this encounter
--- OUTSIDE RECORDS SUMMARY | 2024-05-10 10:28 | XMS_ITS | Encounter Summary ---
Author Organization [facility] Address [address] [facility] [place] [address] Care Team Providers Care Manager User Interface Name Role Phone Nolberto Nicole MD Primary Care Provider [phone] Isidro Heredia MD Unavailable [phone] Reason for Visit * Treatment (Routine) - Closed Specialty Diagnoses / Procedures Referred By Lawrence shah Referred To Contact Infusion Therapy Nurse Diagnoses Rheumatoid arthritis(714.0) ([facility]) Procedures [place] INJECTION TOCILIZUMAB 1 MG Isidro Heredia MD [address] [place] [address] Referral ID Status Reason Start Date Expiration Date Visits Re quested Visits Authorized [id number] Closed 05/01/2013 04/29/2014 1 12 Encounter Details Date Type Department Care Team (Late st Contact Info) Description 07/09/2013 1:30 PM CDT - 07/09/2013 11:59 PM CDT Hospital Encounter [facility] - Rheumatology [address] [place] [address] Isidro Heredia MD [address] [place] [address] Discharge Disposition: Home or Self [...] Foreman RN - 07/09/2013 2:04 PM CDT [place] Rheumatology Post Infusion instructions [...] through Sunday 9-5 call the office at [phone] After hours or on the weekend call the exchange at [phone] If you have had lab work done [...] Sig Dispensed Refills Start Date End Date Ajiokcxilpi-Kmhlljaqs-Do t C-Mn (GLUCOSAMINE CHONDR 1500 COMPLX PO) [...] - 07/09/2013 2:03 PM CDT JOSE Deng [id number] 07/09/2013 Diagnosis: Rheumatoid arthritis [714.0]. Patient questionnaire [...] st Contact Info) Description 06/03/2024 1:00 PM INFORMATION CLERK AUTOMOBILE CLUB Appointment [facility] - Rheumatology [address] [place] [address] 06/03/2024 2:00 PM INFORMATION CLERK AUTOMOBILE CLUB Office Visit [facility] - Rheumatology [address] [place], [place] [phone] Gloria Smith MD [address] [place] [phone] documented as of this encounter Visit Diagnoses Diagnosis Rheumatoid arthritis(714.0) ([facility])- Primary Rheumatoid arthritis documented in [...] documented in this encounter Care Teams Manager User Interface Relationship Specialty Start Date End Date Nolberto Nicole MD PCP - General 07/21/08 12/30/13 Isidro Heredia MD Rheumatology 02/09/11 documented as of this encounter
--- OUTSIDE RECORDS SUMMARY | 2024-05-10 10:28 | XMS_ITS | Encounter Summary ---
Author Organization [facility] Address [address] [place] [address] Care Team Providers Care Corner Brace Block Machine Operator Name Role Phone Nolberto Nicole MD Primary Care Provider [phone] Isidro Heredia MD Unavailable [phone] Reason for Visit * Treatment (Routine) - Closed Specialty Diagnoses / Procedures Referred By Lawrence shah Referred To Contact Infusion Therapy Nurse Diagnoses Rheumatoid arthritis(714.0) ([facility]) Procedures [place] INJECTION TOCILIZUMAB 1 MG Isidro Heredia MD [address] [place] [address] Referral ID Status Reason Start Date Expiration Date Visits Re quested Visits Authorized [id number] Closed 05/01/2013 04/29/2014 1 12 Encounter Details Date Type Department Care Team (Late st Contact Info) Description 11/12/2013 3:33 PM CDT - 11/12/2013 11:59 PM CDT Hospital Encounter [facility] - Rheumatology [address] [place] [address] Isidro Heredia MD [address] [place] [address] Discharge Disposition: Home or Self [...] Foreman RN - 11/12/2013 5:48 PM CDT [place] Rheumatology Post Infusion instructions [...] Sunday through Sunday- call the office at [phone] After hours or on the weekend call the exchange at [phone] If you have had lab work done [...] Sig Dispensed Refills Start Date End Date Kqqnvqvvaih-Pmmabijig-Iq t C-Mn (GLUCOSAMINE CHONDR 1500 COMPLX PO) [...] 5-325 MG tabletIndications:Rheuma toid arthritis(714.0) ([facility]) Take 1 Tab by mouth [...] st Contact Info) Description 06/03/2024 1:00 PM PROMOTIONS ASSISTANT SALES MARKETING Appointment [facility] - Rheumatology [address] [place] [address] [phone] 06/03/2024 2:00 PM PROMOTIONS ASSISTANT SALES MARKETING Office Visit [facility] - Rheumatology [address] [place] [address] Gloria Smith MD [address] [place] [phone] documented as of this encounter Visit Diagnoses Diagnosis Rheumatoid arthritis(714.0) ([facility])- Primary Rheumatoid arthritis documented in [...] mL/hr documented in this encounter Care Teams Corner Brace Block Machine Operator Relationship Specialty Start Date End Date Nolberto Nicole MD PCP - General 07/21/08 12/30/13 Isidro Heredia MD Rheumatology 02/09/11 documented as of this encounter
--- OUTSIDE RECORDS SUMMARY | 2024-05-10 10:28 | XMS_ITS | Encounter Summary ---
Author Organization [facility] Address [address] [facility] [place] [address] Care Team Providers Care Theology Professor Name Role Phone Nolberto Nicole MD Primary Care Provider [phone] Isidro Heredia MD Unavailable [phone] Encounter Details Date Type Department Care Team (Late st Contact Info) Description 06/10/[address] [facility] - Rheumatology [address] [place] [address] [phone] Isidro Heredia MD [address] [place] [address] Rheumatoid arthritis (HCC) Social History Tobacco [...] Letter mailed to patient regarding lab results. TAMPER * Isidro Heredia MD - 06/18/2013 6:54 AM CSTQuick Note: bs 155 mtx ok TAMPER documented in this encounter Plan of Treatment Upcoming Encounters Date Type Department Care Team (Late st Contact Info) Description 06/03/2024 1:00 PM TIE TAMPER Appointment [facility] - Rheumatology [address] [place] [address] [phone] 06/03/2024 2:00 PM TIE TAMPER Office Visit [facility] - Rheumatology [address] [place] [address] Gloria Smith MD [address] [place] [phone] documented as of this encounter Procedures Procedure Name Priority Date/Time Associated Diagnosis Comments ERYTHROCYTE SEDIMENTATION RATE Routine 06/10/2013 3:30 PM TIE TAMPER Rheumatoid Arthritis (Hcc) CBC W AUTO DIFFERENTIAL Routine 06/10/2013 3:30 PM TIE TAMPER Rheumatoid Arthritis (Hcc) COMPREHENSIVE METABOLIC PANEL Routine 06/10/2013 3:30 PM TIE TAMPER Rheumatoid Arthritis (Hcc) documented in this encounter Results * SED RATE WESTERGREN (06/10/2013 3:30 PM TIE TAMPER) Erythrocyte Sedimentation Rate Westergren 29 0 - 30 mm/hr [facility] ACCOUNT BILL Blood specimen (specimen) BLOOD SPECIMEN / Unknown 06/10/2013 3:30 PM TIE TAMPER 06/10/2013 5:37 PM TIE TAMPER Narrative Resulting Agency Comment [facility] [place] [address] [facility] ??[facility] [phone] Isidro Heredia MD LAB - HEMATOLOGY OR DERABLES [facility] ACCOUNT BILL * (ABNORMAL) COMPREHENSIVE METABOLIC PANEL (06/10/2013 3:30 PM TIE TAMPER) Glucose 155(H) 65 - 99 mg/dL [facility] [...] BLOOD SPECIMEN / Unknown 06/10/2013 3:30 PM TIE TAMPER 06/10/2013 5:37 PM TIE TAMPER Narrative Resulting Agency Comment [facility] [address] ??[facility] [id number] Isidro Heredia MD LAB - CHEMISTRY ORD ERABLES [facility] ACCOUNT BILL * (ABNORMAL) CBC W AUTO DIFFERENTIAL (06/10/2013 3:30 PM TIE TAMPER) WBC 9.9 3.4 - 10.8 x10E3/uL [facility] [...] BLOOD SPECIMEN / Unknown 06/10/2013 3:30 PM TIE TAMPER 06/10/2013 5:37 PM TIE TAMPER Narrative Resulting Agency Comment [facility] [address] ??[facility] [phone] Isidro Heredia MD LAB - HEMATOLOGY OR DERABLES [facility] ACCOUNT BILL documented in this encounter Visit Diagnoses Diagnosis Rheumatoid arthritis(714.0) (HCC)- Primary Rheumatoid arthritis documented in this encounter Care Teams Theology Professor Relationship Specialty Start Date End Date Nolberto Nicole MD PCP - General 07/21/08 12/30/13 Isidro Heredia MD Rheumatology 02/09/11 documented as of this encounter
--- OUTSIDE RECORDS SUMMARY | 2024-05-10 10:28 | XMS_ITS | Encounter Summary ---
Author Organization [facility] Address [address] [facility] [place] [address] Care Team Providers Care Assistant Store Manager Sales Name Role Phone Nolberto Nicole MD Primary Care Provider Isidro Heredia MD Unavailable [phone] Reason for Visit * Reason Comments Rheumatoid [...] Diagnoses Rheumatoid arthritis(714.0) ([facility]) Procedures NM OFFICE VISIT DURING HOURS Nolberto Nicole MD [address] [place] [address] Isidro Heredia MD [address] [place] [address] Referral ID Status Reason Start Date Expiration Date Visits Re quested Visits Authorized [id number] Closed 02/20/2012 08/18/2012 1 5 Encounter Details Date Type Department Care Team (Late st Contact Info) Description 07/22/2012 3:30 PM CDT Office Visit [facility] - Rheumatology [address] [place] [address] Isidro Heredia MD [address] [facility] [place] [address] Rheumatoid arthritis (HCC) (Primary Dx); Screening examination [...] Body Mass Index 35.7 05/15/2011 5:19 PM CUTTING TABLE OPERATOR FIRST documented in this encounter Progress Notes * [...] PO) Take by mouth once daily. ??? Zgigikqjpbw-Dmctqrrqp-Xgo C-Mn (GLUCOSAMINE CHONDR 1500 COMPLX PO) Take [...] Description 06/03/2024 1:00 PM CUTTING TABLE OPERATOR FIRST Appointment [facility] - Rheumatology [address] [place] [address] 06/03/2024 2:00 PM CUTTING TABLE OPERATOR FIRST Office Visit [facility] - Rheumatology [address] [place] [address] Gloria Smith MD [address] [place] [phone] documented as of this encounter Procedures Procedure [...] 6:18 PM CDT Narrative Resulting Agency Comment [facility] ??[facility] [phone] Isidro Heredia MD LAB - CHEMISTRY ORD Loylty Rewardz ManagementBLES [facility] ACCOUNT BILL * QUANTIFERON TB-GOLD (07/22/2012 4:43 PM CDT) Pathologist [facility] QuantiFERON Incubation [facility] ACCOUNT BILL Comment: Incubated, specimen forwarded to [facility], [place], [place] for completion of the assay. This specimen has been tested 3 times with 2 out of 3 values positive. ??A repeat specimen performed in 2-3 weeks time may give a consistent negative result. Blood specimen (specimen) BLOOD SPECIMEN / Unknown 07/22/2012 4:43 PM CDT 07/22/2012 6:18 PM CDT Narrative Resulting Agency Comment [facility] [address] [place] [address] ??[facility] [id number] Isidro Heredia MD LAB - CHEMISTRY ORD [employer] Reward[employer] ManagementBLES [facility] ACCOUNT BILL * (ABNORMAL) SED RATE WESTERGREN (07/22/2012 4:42 PM CDT) Erythrocyte Sedimentation Rate Westergren 39(H) 0 - 15 mm/hr [facility] ACCOUNT BILL Blood specimen (specimen) BLOOD SPECIMEN / Unknown 07/22/2012 4:42 PM CDT 07/22/2012 6:18 PM CDT Narrative Resulting Agency Comment [facility] [address] ??[facility] [phone] Isidro Heredia MD LAB - HEMATOLOGY OR DERABLES Performing Organization Address City/[facility]/ZIP Co de Phone Number [facility] ACCOUNT BILL * (ABNORMAL) C-REACTIVE PROTEIN (07/22/2012 4:42 PM CDT) C-Reactive Protein 5.7(H) 0.0 - 4.9 mg/L [facility] ACCOUNT BILL Blood specimen (specimen) BLOOD SPECIMEN / Unknown 07/22/2012 4:42 PM CDT 07/22/2012 6:18 PM CDT Narrative Resulting Agency Comment [facility] ??[facility] [id number] Isidro Heredia MD LAB - CHEMISTRY ORD [...] PM CDT Narrative Resulting Agency Comment [facility] [address] ??[facility] [phone] Isidro Heredia MD LAB - CHEMISTRY ORD [...] PM CDT Narrative Resulting Agency Comment [facility] [address] ??[facility] [phone] Isidro Heredia MD LAB - HEMATOLOGY OR DERABLES [facility] ACCOUNT BILL documented in this encounter Visit Diagnoses Diagnosis Rheumatoid arthritis(714.0) (HCC)- Primary Rheumatoid arthritis Screening examination for pulmonary tuberculosis Sinusitis chronic, ethmoidal Chronic ethmoidal sinusitis Rheumatoid arthritis(714.0) (HCC) Rheumatoid arthritis documented in this encounter Care Teams Assistant Store Manager Sales Relationship Specialty Start Date End Date Nolberto Nicole MD PCP - General 07/21/08 12/30/13 Isidro Heredia MD Rheumatology 02/09/11 documented as of this encounter
--- OUTSIDE RECORDS SUMMARY | 2024-05-10 10:28 | XMS_ITS | Encounter Summary ---
Author Organization [facility] Address [address] [facility] [place] [address] Care Team Providers Care Professor Of Special Education Name Role Phone Nolberto Nicole MD Primary Care Provider [phone] Isidro Heredia MD Unavailable [phone] Reason for Visit * Reason Comments Rheumatoid Arthritis * Consult, Test & Treat (Routine) - Closed Specialty Diagnoses / Procedures Referred By Contsarahi t Referred To Contact Diagnoses Rheumatoid arthritis(714.0) (HCC) Procedures [place] OFFICE VISIT DURING HOURS Nolberto Nicole MD [address] [place] [address] Isidro Heredia MD [address] [place] [address] Referral ID Status Reason Start Date Expiration Date Visits Re quested Visits Authorized [id number] Closed 03/14/2013 09/11/2013 1 6 Encounter Details Date Type Department Care Team (Late st Contact Info) Description 05/12/2013 1:00 PM CHUTE PULLER Office Visit [facility] Medical [facility] - Rheumatology [address] [place] [address] Isidro Heredia MD [address] [place] [address] Rheumatoid arthritis (HCC) (Primary Dx); Chronic [...] Comments Blood Pressure 138/89 05/12/2013 12:57 PM CHUTE PULLER Pulse 81 05/12/2013 12:57 PM CHUTE PULLER Temperature - - Respiratory Rate - - Oxygen Saturation - - Inhaled Oxygen Concentration - - Weight 113.4 kg (250 lb) 05/12/2013 12:57 PM CHUTE PULLER Height - - Body Mass Index 35.87 05/12/2013 12:03 PM CHUTE PULLER documented in this encounter Progress Notes * [...] Active Take by mouth once daily. ??? Lpeihlelfyx-Jlrcbhpoj-Ryk C-Mn (GLUCOSAMINE CHONDR 1500 COMPLX PO) Active [...] bursa.. Patient tolerated procedure well without complications. E PULLER documented in this encounter Plan of Treatment Upcoming Encounters Date Type Department Care Team (Late st Contact Info) Description 06/03/2024 1:00 PM CHUTE PULLER Appointment [facility] - Rheumatology [address] [place] [address] [phone] 06/03/2024 2:00 PM CHUTE PULLER Office Visit [facility] - Rheumatology [address] [place] [address] [phone] Gloria Smith MD [address] [place] [phone] documented as of this encounter Visit Diagnoses Diagnosis Rheumatoid arthritis(714.0) ([facility])- Primary Rheumatoid arthritis Chronic pain syndrome Subacromial bursitis Other specified disorders of rotator cuff syndrome of shoulder and allied disorders documented in this encounter Care Teams Professor Of Special Education Relationship Specialty Start Date End Date Nolberto Nicole MD PCP - General 07/21/08 12/30/13 Isidro Heredia MD Rheumatology 02/09/11 documented as of this encounter
--- OUTSIDE RECORDS SUMMARY | 2024-05-10 10:28 | XMS_ITS | Encounter Summary ---
Author Organization [facility] Address [address] [facility] [place] [address] Care Team Providers Care Debeader Name Role Phone Nolberto Nicole MD Primary Care Provider [phone] Isidro Heredia MD Unavailable [phone] Reason for Visit * Treatment (Routine) - Closed Specialty Diagnoses / Procedures Referred By Lawrence shah Referred To Contact Infusion Therapy Nurse Diagnoses Rheumatoid arthritis(714.0) ([facility]) Procedures [place] INJECTION RITUXIMAB 100 MG Nolberto Nicole MD [address] [employer] [address] Referral ID Status Reason Start Date Expiration Date Visits Re quested Visits Authorized [id number] Closed 04/30/2012 04/29/2013 1 4 Encounter Details Date Type Department Care Team (Late st Contact Info) Description 12/26/2012 10:18 AM CDT - 12/26/2012 11:59 PM CDT Hospital Encounter [facility] - Rheumatology [address] [place] [address] Isidro Heredia MD [address] [place] [address] Discharge Disposition: Home or Self Care [...] Rodrigez, TOVA - 12/26/2012 11:17 AM CDT [place] Rheumatology Post Infusion instructions [...] through Sunday 9-5 call the office at [phone] After hours or on the weekend call the exchange at [phone] If you have had lab work done [...] [facility] as your provider. Mirela Rodrigez RN * Discharge Instructions* Document, Scanned - 01/05/2013 1:18 AM CDT documented in this encounter Medications at Time of Discharge Medication Sig Dispensed Refills Start Date End Date Jtpcfqoeonx-Zbkrcemlz-U it C-Mn (GLUCOSAMINE CHONDR 1500 COMPLX PO) [...] 12/26/2012 11:12 AM CDT JOSE Chalino Deng [id number] 12/26/2012 BP 129/75 Pulse 81 Temp 98.4 [...] st Contact Info) Description 06/03/2024 1:00 PM FISHERIES OFFICER Appointment [facility] - Rheumatology [address] [place] [address] 06/03/2024 2:00 PM FISHERIES OFFICER Office Visit [facility] - Rheumatology [address] [place] [address] Gloria Smith MD [address] [place] [phone] documented as of this encounter Visit [...] mg documented in this encounter Care Teams Debeader Relationship Specialty Start Date End Date Nolberto Nicole MD PCP - General 07/21/08 12/30/13 Isidro Heredia MD Rheumatology 02/09/11 documented as of this encounter
--- OUTSIDE RECORDS SUMMARY | 2024-05-10 10:28 | XMS_ITS | Encounter Summary ---
Author Organization [facility] Address [address] [place] [address] Care Team Providers Care Supervisor Cabinetmaker Name Role Phone Nolberto Nicole MD Primary Care Provider [phone] Isidro Heredia MD Unavailable Reason for Visit * Treatment (Routine) - Closed Specialty Diagnoses / Procedures Referred By Lawrence shah Referred To Contact Infusion Therapy Nurse Diagnoses Rheumatoid arthritis(714.0) ([facility]) Procedures MI INJECTION TOCILIZUMAB 1 MG Isidro Heredia MD [address] [place] [address] Referral ID Status Reason Start Date Expiration Date Visits Re quested Visits Authorized [id number] Closed 05/01/2013 04/29/2014 1 12 Encounter Details Date Type Department Care Team (Late st Contact Info) Description 08/07/2013 1:28 PM CDT - 08/07/2013 11:59 PM CDT Hospital Encounter [facility] - Rheumatology [address] [place] [address] Isidro Heredia MD [address] [place] [address] Discharge Disposition: Home or Self [...] Marx RN - 08/07/2013 2:06 PM CDT [place] Rheumatology Post Infusion instructions [...] through Sunday 9-5 call the office at [phone] After hours or on the weekend call the exchange at [phone] If you have had lab work done [...] have chosen [facility] as your provider. Camryn Marx RN * Discharge Instructions* Document, Scanned - 08/20/2013 10:42 PM CDT documented in this encounter Medications at Time of Discharge Medication Sig Dispensed Refills Start Date End Date Wpvxddsjhxq-Qlkgeszjj-Kk t C-Mn (GLUCOSAMINE CHONDR 1500 COMPLX PO) [...] - 08/07/2013 2:09 PM CDT JOSE Deng [id number] 08/07/2013 Diagnosis: Rheumatoid arthritis [714.0]. BP 130/80 [...] st Contact Info) Description 06/03/2024 1:00 PM DEBURRER STRIP Appointment [facility] - Rheumatology [address] [place] [address] [phone] 06/03/2024 2:00 PM DEBURRER STRIP Office Visit [facility] - Rheumatology [address] [place] [address] Gloria Smith MD [address] [place] [phone] documented as of this encounter Visit [...] documented in this encounter Care Teams Supervisor Cabinetmaker Relationship Specialty Start Date End Date Nolberto Nicole MD PCP - General 07/21/08 12/30/13 Isidro Heredia MD Rheumatology 02/09/11 documented as of this encounter
--- OUTSIDE RECORDS SUMMARY | 2024-05-10 10:28 | XMS_ITS | Encounter Summary ---
Author Organization [facility] Address [address] [place] [address] [place] [address] Care Team Providers Care Plastics Patternmaker Name Role Phone Nolberto Nicole MD Primary Care Provider [phone] Isidro Heredia MD Unavailable [phone] Reason for Visit * Reason Onset Date Comments MEDICATION REFILL 06/25/2013 Encounter Details Date Type Department Care Team (Late st Contact Info) Description 06/25/[address] [facility] Medical [facility] - Rheumatology [address] [place] [address] Isidro Heredia MD [address] [place] [address] MEDICATION REFILL Social History Tobacco Use [...] 9:23 AM CST Received a fax from [facility] requesting alternate cholesterol medication for Crestor. Crestor is not on formulary. Change to Zocor 20 mg daily. Faxed over to [phone] and received confirmation. MER PURIFICATION OPERATOR documented in this encounter Plan of Treatment Upcoming Encounters Date Type Department Care Team (Late st Contact Info) Description 06/03/2024 1:00 PM MONOMER PURIFICATION OPERATOR Appointment [facility] - Rheumatology [address] [place] [address] [phone] 06/03/2024 2:00 PM MONOMER PURIFICATION OPERATOR Office Visit [facility] - Rheumatology [address] [place] [address] [phone] Gloria Smith MD [address] [place] [phone] documented as of this encounter Visit Diagnoses Not on filedocumented in this encounter Care Teams Plastics Patternmaker Relationship Specialty Start Date End Date Nolberto Nicole MD PCP - General 07/21/08 12/30/13 Isidro Heredia MD Rheumatology 02/09/11 documented as of this encounter
--- OUTSIDE RECORDS SUMMARY | 2024-05-10 10:28 | XMS_ITS | Encounter Summary ---
Author Organization [facility] Address [address] [place] [address] Care Team Providers Care Market Research Executive Name Role Phone Nolberto Nicole MD Primary Care Provider [phone] Isidro Heredia MD Unavailable [phone] Encounter Details Date Type Department Care Team (Late st Contact Info) Description 04/11/2013 Orders Only [facility] - Rheumatology [address] [place] [address] [phone] Isidro Heredia MD [address] [place] [address] Rheumatoid arthritis (HCC) Social History Tobacco [...] Note: Sent lab letter to pt E WATER PLANT OPERATOR * Isidro Heredia MD - 04/16/2013 6:50 AM CSTQuick Note: mtx ok E WATER PLANT OPERATOR documented in this encounter Plan of Treatment Upcoming Encounters Date Type Department Care Team (Late st Contact Info) Description 06/03/2024 1:00 PM WASTE WATER PLANT OPERATOR Appointment [facility] - Rheumatology [address] [place] [address] 06/03/2024 2:00 PM WASTE WATER PLANT OPERATOR Office Visit [facility] - Rheumatology [address] [place] [address] Gloria Smith MD [address] [place] [phone] documented as of this encounter Procedures Procedure Name Priority Date/Time Associated Diagnosis Comments ERYTHROCYTE SEDIMENTATION RATE Routine 04/11/2013 9:30 AM WASTE WATER PLANT OPERATOR Rheumatoid Arthritis (Hcc) CBC W AUTO DIFFERENTIAL Routine 04/11/2013 9:30 AM WASTE WATER PLANT OPERATOR Rheumatoid Arthritis (Hcc) COMPREHENSIVE METABOLIC PANEL Routine 04/11/2013 9:30 AM WASTE WATER PLANT OPERATOR Rheumatoid Arthritis (Hcc) documented in this encounter Results * SED RATE WESTERGREN (04/11/2013 9:30 AM WASTE WATER PLANT OPERATOR) Erythrocyte Sedimentation Rate Westergren 20 0 - 30 mm/hr [facility] ACCOUNT BILL Blood specimen (specimen) BLOOD SPECIMEN / Unknown 04/11/2013 9:30 AM WASTE WATER PLANT OPERATOR 04/11/2013 6:53 PM WASTE WATER PLANT OPERATOR Narrative Resulting Agency Comment [facility] [place] [id number] [facility] ??[facility] [phone] Isidro Heredia MD LAB - HEMATOLOGY OR DERABLES [facility] ACCOUNT BILL * (ABNORMAL) COMPREHENSIVE METABOLIC PANEL (04/11/2013 9:30 AM WASTE WATER PLANT OPERATOR) Glucose 92 65 - 99 mg/dL [facility] [...] BLOOD SPECIMEN / Unknown 04/11/2013 9:30 AM WASTE WATER PLANT OPERATOR 04/11/2013 6:53 PM WASTE WATER PLANT OPERATOR Narrative Resulting Agency Comment [facility] [address] ??[facility] [phone] Isidro Heredia MD LAB - CHEMISTRY ORD ERABLES [facility] ACCOUNT BILL * (ABNORMAL) CBC W AUTO DIFFERENTIAL (04/11/2013 9:30 AM WASTE WATER PLANT OPERATOR) WBC 8.0 3.4 - 10.8 x10E3/uL [facility] [...] BLOOD SPECIMEN / Unknown 04/11/2013 9:30 AM WASTE WATER PLANT OPERATOR 04/11/2013 6:53 PM WASTE WATER PLANT OPERATOR Narrative Resulting Agency Comment [facility] [address] ??[facility] [phone] Isidro Heredia MD LAB - HEMATOLOGY OR DERABLES [facility] ACCOUNT BILL documented in this encounter Visit Diagnoses Diagnosis Rheumatoid arthritis(714.0) (HCC)- Primary Rheumatoid arthritis documented in this encounter Care Teams Market Research Executive Relationship Specialty Start Date End Date Nolberto Nicole MD PCP - General 07/21/08 12/30/13 Isidro Heredia MD Rheumatology 02/09/11 documented as of this encounter
--- OUTSIDE RECORDS SUMMARY | 2024-05-10 10:28 | XMS_ITS | Encounter Summary ---
Author Organization [facility] Address [address] [address] Care Team Providers Care Television Maintenance Man Name Role Phone Nolberto Nicole MD Primary Care Provider [phone] Isidro Heredia MD Unavailable Encounter Details Date Type Department Care Team (Late Contact Info) Description 09/04/2013 Orders Only [facility] - Rheumatology [address] [place] [address] aCrlos Foreman RN Rheumatoid arthritis (HCC) Social History [...] (Late Contact Info) Description 06/03/2024 1:00 PM DENTAL EQUIPMENT REPAIRER Appointment [facility] - Rheumatology [address] [place] [address] 06/03/2024 2:00 PM DENTAL EQUIPMENT REPAIRER Office Visit [facility] - Rheumatology [address] [place] [address] Gloria Smith MD [address] [place] [phone] documented as of this encounter Visit Diagnoses Diagnosis Rheumatoid arthritis(714.0) (HCC)- Primary Rheumatoid arthritis documented in this encounter Care Teams Television Maintenance Man Relationship Specialty Start Date End Date Nolberto Nicole MD PCP - General 07/21/08 12/30/13 Isidro Heredia MD Rheumatology 02/09/11 documented as of this encounter
--- OUTSIDE RECORDS SUMMARY | 2024-05-10 10:28 | XMS_ITS | Encounter Summary ---
Author Organization [facility] Address [address] [place] [address] Care Team Providers Care Manager Nursing Name Role Phone Nolberto Nicole MD Primary Care Provider [phone] Isidro Heredia MD Unavailable [phone] Encounter Details Date Type Department Care Team (Late Contact Info) Description 12/24/2012 Orders Only [facility] - Rheumatology [address] [place] [address] Mirela Rodrigez RN Rheumatoid arthritis (HCC) [...] (Late Contact Info) Description 06/03/2024 1:00 PM HARDWARE SALES ASSISTANT Appointment [facility] - Rheumatology [address] [place] [address] 06/03/2024 2:00 PM HARDWARE SALES ASSISTANT Office Visit [facility] - Rheumatology [address] [place] [address] Gloria Smith MD [address] [place] [phone] documented as of this encounter Visit Diagnoses Diagnosis Rheumatoid arthritis(714.0) ([facility])- Primary Rheumatoid arthritis documented in this encounter Care Teams Manager Nursing Relationship Specialty Start Date End Date Nolberto Nicole MD PCP - General 07/21/08 12/30/13 Isidro Heredia MD Rheumatology 02/09/11 documented as of this encounter
--- OUTSIDE RECORDS SUMMARY | 2024-05-10 10:28 | XMS_ITS | Encounter Summary ---
Author Organization [facility] Address [address] [place] [address] Care Team Providers Care Insole Tacker Name Role Phone Nolberto Nicole MD Primary Care Provider [phone] Isidro Heredia MD Unavailable [phone] Encounter Details Date Type Department Care Team (Late st Contact Info) Description 11/12/2013 Orders Only [facility] - Rheumatology [address] [place] [address] [phone] Isidro Heredia MD [address] [place] [address] Rheumatoid arthritis (HCC) Social History Tobacco [...] st Contact Info) Description 06/03/2024 1:00 PM SHEET ROCK LAYER Appointment [facility] - Rheumatology [address] [place] [address] 06/03/2024 2:00 PM SHEET ROCK LAYER Office Visit [facility] - Rheumatology [address] [place] [address] Gloria Smith MD [address] [place] [phone] documented as of this encounter Procedures [...] 6:13 PM CDT Narrative Resulting Agency Comment [facility] ??[facility] [phone] Isidro Heredia MD LAB - CHEMISTRY ORD ERABLES Performing Organization Address City/[facility] Co de Phone Number [facility] INSURANCE BILL * SED RATE WESTERGREN (11/12/2013 4:15 PM CDT) Erythrocyte Sedimentation Rate Westergren 7 0 - 30 mm/hr [facility] INSURANCE BILL Blood specimen (specimen) BLOOD SPECIMEN / Unknown 11/12/2013 4:15 PM CDT 11/12/2013 6:13 PM CDT Narrative Resulting Agency Comment [facility] ??[facility] [phone] Isidro Heredia MD LAB - HEMATOLOGY OR DERABLES Performing Organization Address City/State/[facility] Co de Phone Number [facility] INSURANCE BILL [...] CDT Narrative Resulting Agency Comment [facility] [address] ??[facility] [phone] Isidro Heredia MD LAB - HEMATOLOGY OR DERABLES [facility] INSURANCE BILL documented in this encounter Visit Diagnoses Diagnosis Rheumatoid arthritis(714.0) (HCC)- Primary Rheumatoid arthritis documented in this encounter Care Teams Insole Tacker Relationship Specialty Start Date End Date Nolberto Nicole MD PCP - General 07/21/08 12/30/13 Isidro Heredia MD Rheumatology 02/09/11 documented as of this encounter
--- OUTSIDE RECORDS SUMMARY | 2024-05-10 10:28 | XMS_ITS | Encounter Summary ---
Author Organization [facility] Address [address] [place] [address] Care Team Providers Care Press Operator Assistant Name Role Phone Nolberto Nicole MD Primary Care Provider [phone] Isidro Heredia MD Unavailable [phone] Reason for Visit * Treatment (Routine) - Closed Specialty Diagnoses / Procedures Referred By Lawrence shah Referred To Contact Infusion Therapy Nurse Diagnoses Rheumatoid arthritis(714.0) ([facility]) Procedures ME INJECTION TOCILIZUMAB 1 MG Isidro Heredia MD [address] [place] [address] Referral ID Status Reason Start Date Expiration Date Visits Re quested Visits Authorized [id number] Closed 03/07/2013 06/05/2013 1 5 Encounter Details Date Type Department Care Team (Late st Contact Info) Description 04/11/2013 9:14 AM COMPLIANCE ENGINEER PRODUCTS - 04/11/2013 11:59 PM COMPLIANCE ENGINEER PRODUCTS Hospital Encounter [facility] - Rheumatology [address] [place] [address] Isidro Heredia MD [address] [place] [address] Discharge Disposition: Home or Self [...] Comments Blood Pressure 133/86 04/11/2013 9:34 AM COMPLIANCE ENGINEER PRODUCTS Pulse 103 04/11/2013 9:34 AM COMPLIANCE ENGINEER PRODUCTS Temperature 36.7 ??C (98.1 ??F) 04/11/2013 9:34 AM CS T Respiratory Rate 16 04/11/2013 9:34 AM COMPLIANCE ENGINEER PRODUCTS Oxygen Saturation - - Inhaled Oxygen Concentration - - Weight 113.4 kg (250 lb) 04/11/2013 9:34 AM COMPLIANCE ENGINEER PRODUCTS Height 177.8 cm (5' 10 ) 04/11/2013 9:34 AM COMPLIANCE ENGINEER PRODUCTS Body Mass Index 35.87 04/11/2013 9:34 AM COMPLIANCE ENGINEER PRODUCTS documented in this encounter Discharge Instructions * Discharge Instructions* Mirela Rodrigez, RN - 04/11/2013 9:51 AM COMPLIANCE ENGINEER PRODUCTS [place] Rheumatology Post Infusion instructions You have [...] through Sunday 9-5 call the office at [phone] After hours or on the weekend call the exchange at [phone] If you have had lab work done [...] Center as your provider. Mirela Rodrigez RN LIANCE ENGINEER PRODUCTS * Discharge Instructions* Document, Scanned - 04/21/2013 8:34 PM COMPLIANCE ENGINEER PRODUCTS LIANCE ENGINEER PRODUCTS documented in this encounter Medications at Time of Discharge Medication Sig Dispensed Refills Start Date End Date Fvyjdfukqmb-Mlsjlyctn-Kn t C-Mn (GLUCOSAMINE CHONDR 1500 COMPLX PO) [...] - 04/11/2013 9:48 AM CST JOSE Deng [id number] 04/11/2013 BP 133/86 Pulse 103 Temp 98.1 [...] Next treatment? 4 weeks Mirela Rodrigez RN LIANCE ENGINEER PRODUCTS documented in this encounter Miscellaneous Notes * Miscellaneous Scans - Document, Scanned - 04/21/2013 8:33 PM CST LIANCE ENGINEER PRODUCTS documented in this encounter Plan of Treatment Upcoming Encounters Date Type Department Care Team (Late st Contact Info) Description 06/03/2024 1:00 PM COMPLIANCE ENGINEER PRODUCTS Appointment [facility] - Rheumatology [address] [place] [address] 06/03/2024 2:00 PM COMPLIANCE ENGINEER PRODUCTS Office Visit [facility] - Rheumatology [address] [place] [address] Gloria Smith MD [address] [place] [phone] documented as of this encounter Visit Diagnoses Not on filedocumented in this encounter Administered Medications Inactive Administered Medications - up to 3 most recent administrations Medication Order MAR Action Action Date Dose Rate Site tocilizumab (ACTEMRA) 460 mg in NaCl 0.9 % IVPB 460 mg, at 100 mL/hr, Intravenous, ONCE, 1 dose, On Sun04/11/13 at 0945 $ Given 04/11/2013 9:48 AM COMPLIANCE ENGINEER PRODUCTS 460 mg 100 mL/hr documented in this encounter Care Teams Press Operator Assistant Relationship Specialty Start Date End Date Nolberto Nicole MD PCP - General 07/21/08 12/30/13 Isidro Heredia MD Rheumatology 02/09/11 documented as of this encounter
--- OUTSIDE RECORDS SUMMARY | 2024-05-10 10:28 | XMS_ITS | Encounter Summary ---
Author Organization [facility] Address [address] [place] [address] Care Team Providers Care Customer Advocacy Manager Name Role Phone Nolberto Nicole MD Primary Care Provider [phone] Isidro Heredia MD Unavailable [phone] Reason for Visit * Reason Comments Rheumatoid [...] Referred To Contact Diagnoses Rheumatoid arthritis(714.0) ([facility]) Procedures [place] OFFICE VISIT DURING HOURS Nolberto Nicole MD [address] [place] [address] Isidro Heredia MD [address] [place] [address] Referral ID Status Reason Start Date Expiration Date Visits Re quested Visits Authorized [id number] Closed 02/20/2012 08/18/2012 1 5 Encounter Details Date Type Department Care Team (Late st Contact Info) Description 06/24/2012 5:00 PM RUBBER HEEL AND SOLE PRESS TENDER Office Visit [facility] - Rheumatology [address] [place] [address] Isidro Heredia MD [address] [place] [address] ZOHAIB ESPINO [id number] Rheumatoid arthritis (HCC) (Primary Dx); Headache Social [...] Comments Blood Pressure 110/86 06/24/2012 5:31 PM RUBBER HEEL AND SOLE PRESS TENDER Pulse 80 06/24/2012 5:31 PM RUBBER HEEL AND SOLE PRESS TENDER Temperature 36.8 ??C (98.2 ??F) 06/24/2012 5:31 PM CS T Respiratory Rate - - Oxygen Saturation - - Inhaled Oxygen Concentration - - Weight 111.6 kg (246 lb) 06/24/2012 5:31 PM RUBBER HEEL AND SOLE PRESS TENDER Height - - Body Mass Index 35.3 05/15/2011 5:19 PM RUBBER HEEL AND SOLE PRESS TENDER documented in this encounter Progress Notes * Yamileth Rodríguez MA - 07/01/2012 11:45 AM CSTQuick Note: Letter mailed to patient regarding alb results. ER HEEL AND SOLE PRESS TENDER * Isidro Heredia MD - 06/30/2012 5:16 PM CSTQuick Note: mtx ok ER HEEL AND SOLE PRESS TENDER * Isidro Heredia MD - 06/30/2012 5:15 PM CSTQuick Note: mtx ok ER HEEL AND SOLE PRESS TENDER * Isidro Heredia MD - 06/24/2012 5:55 [...] PO) Take by mouth once daily. ??? Xgiwcwqjljf-Jebbbehrc-Lja C-Mn (GLUCOSAMINE CHONDR 1500 COMPLX PO) Take [...] Follow up in office in 4 weeks ER HEEL AND SOLE PRESS TENDER * Rea Hagan MA - 06/24/2012 5:33 [...] 98.2 ??F Wt 246 lb (111.585 kg) ER HEEL AND SOLE PRESS TENDER documented in this encounter Plan of Treatment Upcoming Encounters Date Type Department Care Team (Late st Contact Info) Description 06/03/2024 1:00 PM RUBBER HEEL AND SOLE PRESS TENDER Appointment [facility] - Rheumatology [address] [place] [address] 06/03/2024 2:00 PM RUBBER HEEL AND SOLE PRESS TENDER Office Visit [facility] - Rheumatology [address] [place] [address] Gloria Smith MD [address] [place] [phone] documented as of this encounter Procedures Procedure Name Priority Date/Time Associated Diagnosis Comments C-REACTIVE PROTEIN Routine 06/24/2012 6: 12 PM RUBBER HEEL AND SOLE PRESS TENDER Rheumatoid arthritis (HCC) ERYTHROCYTE SEDIMENTATION RATE Routine 06/24/2012 6:12 PM RUBBER HEEL AND SOLE PRESS TENDER Rheumatoid arthritis (HCC) CBC W AUTO DIFFERENTIAL Routine 06/24/2012 6:12 PM RUBBER HEEL AND SOLE PRESS TENDER Rheumatoid arthritis (HCC) COMPREHENSIVE METABOLIC PANEL Routine 06/24/2012 6:12 PM RUBBER HEEL AND SOLE PRESS TENDER Rheumatoid arthritis (HCC) documented in this encounter Results * (ABNORMAL) SED RATE WESTERGREN (06/24/2012 6:12 PM RUBBER HEEL AND SOLE PRESS TENDER) Erythrocyte Sedimentation Rate Westergren 37(H) 0 - 15 mm/hr [facility] ACCOUNT BILL Blood specimen (specimen) BLOOD SPECIMEN / Unknown 06/24/2012 6:12 PM RUBBER HEEL AND SOLE PRESS TENDER 06/24/2012 7:33 PM RUBBER HEEL AND SOLE PRESS TENDER Narrative Resulting Agency [facility] [address] ??[facility] [phone] Isidro Heredia MD LAB - HEMATOLOGY OR DERABLES [facility] ACCOUNT BILL * C-REACTIVE PROTEIN (06/24/2012 6:12 PM RUBBER HEEL AND SOLE PRESS TENDER) C-Reactive Protein 4.2 0.0 - 4.9 mg/L [facility] ACCOUNT BILL Blood specimen (specimen) BLOOD SPECIMEN / Unknown 06/24/2012 6:12 PM RUBBER HEEL AND SOLE PRESS TENDER 06/24/2012 7:33 PM RUBBER HEEL AND SOLE PRESS TENDER Narrative Resulting Agency Comment [facility] [address] [facility] ??[facility] [phone] Isidro Heredia MD LAB - CHEMISTRY ORD ERABLES [facility] ACCOUNT BILL * (ABNORMAL) COMPREHENSIVE METABOLIC PANEL (06/24/2012 6:12 PM RUBBER HEEL AND SOLE PRESS TENDER) Glucose 101(H) 65 - 99 mg/dL [facility] [...] BLOOD SPECIMEN / Unknown 06/24/2012 6:12 PM RUBBER HEEL AND SOLE PRESS TENDER 06/24/2012 7:33 PM RUBBER HEEL AND SOLE PRESS TENDER Narrative Resulting Agency Comment [facility] [address] ??[facility] [phone] Isidro Heredia MD LAB - CHEMISTRY ORD ERABLES [facility] ACCOUNT BILL * (ABNORMAL) CBC W AUTO DIFFERENTIAL (06/24/2012 6:12 PM RUBBER HEEL AND SOLE PRESS TENDER) WBC 10.9(H) 4.0 - 10.5 x10E3/uL [facility] [...] BLOOD SPECIMEN / Unknown 06/24/2012 6:12 PM RUBBER HEEL AND SOLE PRESS TENDER 06/24/2012 7:33 PM RUBBER HEEL AND SOLE PRESS TENDER Narrative Resulting Agency Comment [facility] [address] ??[facility] [phone] Isidro Heredia MD LAB - HEMATOLOGY OR DERABLES [facility] ACCOUNT BILL documented in this encounter Visit Diagnoses Diagnosis Rheumatoid arthritis(714.0) (HCC)- Primary Rheumatoid arthritis Headache(784.0) Headache documented in this encounter Care Teams Customer Advocacy Manager Relationship Specialty Start Date End Date Nolberto Nicole MD PCP - General 3/24/09 9/2/14 Isidro Heredia MD Rheumatology 02/09/11 documented as of this encounter
--- OUTSIDE RECORDS SUMMARY | 2024-05-10 10:28 | XMS_ITS | Encounter Summary ---
Author Organization [facility] Address [address] [address] Care Team Providers Care Marketing Admin Name Role Phone Nolberto Nicole MD Primary Care Provider [phone] Isidro Heredia MD Unavailable Reason for Visit * Reason Comments Rheumatoid Arthritis - FYI Actemera incr eased to 800 mg today due to joint pain Shoulder Pain obdulia. rt shoulder is worse * Consult, Test & Treat (Routine) - Closed Specialty Diagnoses / Procedures Referred By Contsarahi t Referred To Contact Diagnoses Rheumatoid arthritis(714.0) ([facility]) Procedures [place] OFFICE VISIT DURING HOURS Nolberto Nicole MD [address] [place] [address] Isidro Heredia MD [address] [place] [address] Referral ID Status Reason Start Date Expiration Date Visits Re quested Visits Authorized [id number] Closed 03/14/2013 09/11/2013 1 6 Encounter Details Date Type Department Care Team (Late st Contact Info) Description 09/04/2013 3:15 PM CDT Office Visit [facility] Business [facility] - Rheumatology [address] [place] [address] Isidro Heredia MD [address] [place] [address] Rheumatoid arthritis (HCC) (Primary Dx); [...] PO) Take by mouth once daily. ??? Zfpdobacjci-Dlqnctpku-Wzg C-Mn (GLUCOSAMINE CHONDR 1500 COMPLX PO) Take [...] st Contact Info) Description 06/03/2024 1:00 PM BUILDING ECONOMIST Appointment [facility] - Rheumatology [address] [place] [address] [phone] 06/03/2024 2:00 PM BUILDING ECONOMIST Office Visit [facility] - Rheumatology [address] [place] [address] Gloria Smith MD [address] [place] [address] [phone] Scheduled Orders Name Type Priority Associated Diagnoses Orde r Schedule TSH Lab Routine Fatigue Ordered: 09/04/2013 T4 TOTAL Lab Routine Fatigue Ordered: 09/04/2013 documented as of this encounter Visit Diagnoses Diagnosis Rheumatoid arthritis(714.0) ([facility])- Primary Rheumatoid arthritis Fatigue Other malaise and fatigue Chronic pain syndrome Subacromial bursitis Other specified disorders of rotator cuff syndrome of shoulder and allied disorders documented in this encounter Care Teams Marketing Admin Relationship Specialty Start Date End Date Nolberto Nicole MD PCP - General 07/21/08 12/30/13 Isidro Heredia MD Rheumatology 02/09/11 documented as of this encounter
--- OUTSIDE RECORDS SUMMARY | 2024-05-10 10:28 | XMS_ITS | Encounter Summary ---
Author Organization [facility] Address [address] [place] [address] Care Team Providers Care Spanish Medical Interpreter Name Role Phone Nolberto Nicole MD Primary Care Provider Isidro Heredia MD Unavailable [phone] Reason for Referral * - Closed Specialty Diagnoses / Procedures Referred By Contac t Referred To Contact Diagnoses Pleurisy Abdominal pain Procedures CT THORAX ABDOMEN PELVIS W CONT Isidro Heredia MD [address] [place] [address] Referral ID Status Reason Start Date Expiration Date Visits Re quested Visits Authorized [id number] Closed 03/25/2013 09/21/2013 1 1 AGE TRUCK HELPER Reason for Visit * Reason Comments Rheumatoid Arthritis Pain Side rt upper side. burni ng sensations. he wants liver checked Rash upper back * Consult, Test & Treat (Routine) - Closed Specialty Diagnoses / Procedures Referred By Contsarahi t Referred To Contact Diagnoses Rheumatoid arthritis(714.0) ([facility]) Procedures [place] OFFICE VISIT DURING HOURS Nolberto Nicole MD [address] [place] [address] Isidro Heredia MD [address] [place] [address] Referral ID Status Reason Start Date Expiration Date Visits Re quested Visits Authorized [id number] Closed 03/14/2013 09/11/2013 1 6 Encounter Details Date Type Department Care Team (Late st Contact Info) Description 03/21/2013 1:00 PM GARBAGE TRUCK HELPER Office [facility] - Rheumatology [address] [place] [address] Isidro Heredia MD [address] [place] [address] Rheumatoid arthritis (HCC) (Primary Dx); Pleurisy; Abdominal [...] Comments Blood Pressure 136/84 03/21/2013 1:02 PM GARBAGE TRUCK HELPER Pulse 80 03/21/2013 1:02 PM GARBAGE TRUCK HELPER Temperature - - Respiratory Rate - - Oxygen Saturation - - Inhaled Oxygen Concentration - - Weight 114.3 kg (252 lb) 03/21/2013 1:02 PM GARBAGE TRUCK HELPER Height - - Body Mass Index 36.16 01/09/2013 11:48 AM CDT documented in this encounter Progress Notes * Rea Hagan MA - 04/07/2013 12:23 PM CSTQuick Note: Pt informed his lab results on 04/04/13 AGE TRUCK HELPER * Isidro Heredia MD - 03/28/2013 9:55 PM CSTQuick Note: All labs ok Ct chest nl Ct abd Diverticulosis in colon benign Rest of ct neg AGE TRUCK HELPER * Rea Hagan MA - 03/24/2013 9:16 AM CST Resulted the urine test AGE TRUCK HELPER * Isidro Heredia MD - 03/21/2013 1:38 [...] Active Take by mouth once daily. ??? Nqrqohaoadh-Bliezxgof-Ykw C-Mn (GLUCOSAMINE CHONDR 1500 COMPLX PO) Active [...] Follow up in office in 4 weeks AGE TRUCK HELPER documented in this encounter Plan of Treatment Upcoming Encounters Date Type Department Care Team (Late st Contact Info) Description 06/03/2024 1:00 PM GARBAGE TRUCK HELPER Appointment [facility] - Rheumatology [address] [place] [address] 06/03/2024 2:00 PM GARBAGE TRUCK HELPER Office Visit [facility] - Rheumatology [address] [place] [address] Gloria Smith MD [address] [place] [phone] documented as of this encounter Procedures Procedure Name Priority Date/Time Associated Diagnosis Comments URINALYSIS AUTO - POINT OF CARE Routine 03/24/2013 9:16 AM GARBAGE TRUCK HELPER Rheumatoid Arthritis (Hcc) C-REACTIVE PROTEIN Routine 03/21/2013 2: 22 PM GARBAGE TRUCK HELPER Rheumatoid Arthritis (Hcc) ERYTHROCYTE SEDIMENTATION RATE Routine 03/21/2013 2:22 PM GARBAGE TRUCK HELPER Rheumatoid Arthritis (Hcc) CBC W AUTO DIFFERENTIAL Routine 03/21/2013 2:22 PM GARBAGE TRUCK HELPER Rheumatoid Arthritis (Hcc) COMPREHENSIVE METABOLIC PANEL Routine 03/21/2013 2:22 PM GARBAGE TRUCK HELPER Rheumatoid Arthritis (Hcc) documented in this encounter Results * CT THORAX ABDOMEN PELVIS W CONT (03/25/2013 8:59 AM GARBAGE TRUCK HELPER) Anatomical Region Laterality Modality Chest, Abdomen, Pelvis Computed Tomography 03/25/2013 11:5 3 AM GARBAGE TRUCK HELPER Narrative 03/25/2013 11:57 AM GARBAGE TRUCK HELPER Examination: CT chest with contrast. Indication for [...] CHEST PA AND LATERAL (03/24/2013 6:23 PM GARBAGE TRUCK HELPER) Anatomical Region Laterality Modality Chest Other Narrative 03/24/2013 6:23 PM GARBAGE TRUCK HELPER Isidro Heredia MD ? 03/24/2013 ??6:23 PM CXR: ??NAD Procedure Note Isidro Heredia MD - 03/24/2013 6:22 PM CST CXR: NAD Isidro Heredia MD DIAGNOSTIC IMAGING ORDERABLES * URINALYSIS AUTO - POINT OF CARE (03/24/2013 9:16 AM GARBAGE TRUCK HELPER) Pathologist [facility] Clarity UA POCT Comment:creatine 100 mg/dl Color UA POCT yellow Leukocyte UA negative Negative Nitrite UA POCT negative Negative Urobilinogen UA POCT 0.1 - 1.0 EU/dL Protein UA POCT negative Negative pH UA 6.0 5.0 - 8.0 pH units Blood UA negative Negtive Specific Protem UA POCT 1.015 1.002 - 1.030 Ketone UA negative Negative Bilirubin UA POCT Negative Glucose UA negative Negative Urine specimen (specimen) URINE / Unknown Isidro Heredia MD LAB - POINT OF CARE ORDERABLES * SED RATE WESTERGREN (03/21/2013 2:22 PM GARBAGE TRUCK HELPER) Pathologist [facility] Erythrocyte Sedimentation Rate Westergren 10 0 - 30 mm/hr [facility] ACCOUNT BILL Blood specimen (specimen) BLOOD SPECIMEN / Unknown 03/21/2013 2:22 PM GARBAGE TRUCK HELPER 03/21/2013 4:07 PM GARBAGE TRUCK HELPER Narrative Resulting Agency Comment [facility] [address] ??[facility] [phone] Isidro Heredia MD LAB - HEMATOLOGY OR DERABLES [facility] ACCOUNT BILL * (ABNORMAL) C-REACTIVE PROTEIN (03/21/2013 2:22 PM GARBAGE TRUCK HELPER) C-Reactive Protein 6.7(H) 0.0 - 4.9 mg/L [facility] ACCOUNT BILL Blood specimen (specimen) BLOOD SPECIMEN / Unknown 03/21/2013 2:22 PM GARBAGE TRUCK HELPER 03/21/2013 4:07 PM GARBAGE TRUCK HELPER Narrative Resulting Agency Comment [facility] [address] ??[facility] [id number] Isidro Heredia MD LAB - CHEMISTRY ORD ERABLES [facility] ACCOUNT BILL * (ABNORMAL) COMPREHENSIVE METABOLIC PANEL (03/21/2013 2:22 PM GARBAGE TRUCK HELPER) Glucose 112(H) 65 - 99 mg/dL [facility] [...] BLOOD SPECIMEN / Unknown 03/21/2013 2:22 PM GARBAGE TRUCK HELPER 03/21/2013 4:07 PM GARBAGE TRUCK HELPER Narrative Resulting Agency Comment [facility] [address] ??[facility] [phone] Isidro Heredia MD LAB - CHEMISTRY ORD ERABLES [facility] ACCOUNT BILL * (ABNORMAL) CBC W AUTO DIFFERENTIAL (03/21/2013 2:22 PM GARBAGE TRUCK HELPER) WBC 10.6 3.4 - 10.8 x10E3/uL [facility] [...] BLOOD SPECIMEN / Unknown 03/21/2013 2:22 PM GARBAGE TRUCK HELPER 03/21/2013 4:07 PM GARBAGE TRUCK HELPER Narrative Resulting Agency Comment [facility] [address] ??[facility] [phone] Isidro Heredia MD LAB - HEMATOLOGY OR DERABLES [facility] ACCOUNT BILL documented in this encounter Visit Diagnoses Diagnosis Rheumatoid arthritis(714.0) (HCC)- Primary Rheumatoid arthritis Pleurisy Abdominal pain Pleurisy- Primary Pleurisy Abdominal pain documented in this encounter Care Teams Spanish Medical Interpreter Relationship Specialty Start Date End Date Nolberto Nicole MD PCP - General 07/21/08 12/30/13 Isidro Heredia MD Rheumatology 02/09/11 documented as of this encounter
--- OUTSIDE RECORDS SUMMARY | 2024-05-10 10:28 | XMS_ITS | Encounter Summary ---
Author Organization [facility] Address [address] [place] [address] Care Team Providers Care Cafeteria Food Server Name Role Phone Nolberto Nicole MD Primary Care Provider [phone] Isidro Heredia MD Unavailable [phone] Reason for Visit * Treatment (Routine) - Closed Specialty Diagnoses / Procedures Referred By Lawrence shah Referred To Contact Infusion Therapy Nurse Diagnoses Rheumatoid arthritis(714.0) ([facility]) Procedures [place] INJECTION TOCILIZUMAB 1 MG Isidro Heredia MD [address] [facility] [place] [address] Referral ID Status Reason Start Date Expiration Date Visits Re quested Visits Authorized [id number] Closed 03/07/2013 06/05/2013 1 5 Encounter Details Date Type Department Care Team (Late st Contact Info) Description 05/12/2013 11:30 AM GUN STRIPER - 05/12/2013 11:59 PM [facility] Hospital Encounter [facility] - Rheumatology [address] [place] [address] Isidro Heredia MD [address] [place] [address] Discharge Disposition: Home or Self [...] Comments Blood Pressure 138/89 05/12/2013 12:03 PM GUN STRIPER Pulse 81 05/12/2013 12:03 PM GUN STRIPER Temperature 36.3 ??C (97.4 ??F) 05/12/2013 12:[address] Respiratory Rate 16 05/12/2013 12:03 PM GUN STRIPER Oxygen Saturation - - Inhaled Oxygen Concentration - - Weight 113.4 kg (250 lb) 05/12/2013 12:03 PM GUN STRIPER Height 177.8 cm (5' 10 ) 05/12/2013 12:03 PM GUN STRIPER Body Mass Index 35.87 05/12/2013 12:03 PM GUN STRIPER documented in this encounter Discharge Instructions * Discharge Instructions* Mirela Rodrigez, RN - 05/12/2013 12:07 PM GUN STRIPER [place] Rheumatology Post Infusion instructions You have [...] through Sunday 9-5 call the office at [phone] After hours or on the weekend call the exchange at [phone] If you have had lab work done [...] Center as your provider. Mirela Rodrigez RN STRIPER * Discharge Instructions* Document, Scanned - 05/16/2013 7:01 PM GUN STRIPER STRIPER documented in this encounter Medications at Time of Discharge Medication Sig Dispensed Refills Start Date End Date Crxywslniui-Xqbukcnny-Md t C-Mn (GLUCOSAMINE CHONDR 1500 COMPLX PO) [...] - 05/12/2013 12:25 PM CST JOSE Deng [id number] 05/12/2013 BP 138/89 Pulse 81 Temp 97.4 [...] Next treatment? 4 weeks Mirela Rodrigez RN STRIPER documented in this encounter Miscellaneous Notes * Miscellaneous Scans - Document, Scanned - 05/15/2013 5:41 PM CST STRIPER documented in this encounter Plan of Treatment Upcoming Encounters Date Type Department Care Team (Late st Contact Info) Description 06/03/2024 1:00 PM GUN STRIPER Appointment [facility] - Rheumatology [address] [place] [address] 06/03/2024 2:00 PM GUN STRIPER Office Visit [facility] - Rheumatology [address] [place] [address] Gloria Smith MD [address] [place] [phone] documented as of this encounter Visit Diagnoses Not on filedocumented in this encounter Administered Medications Inactive Administered Medications - up to 3 most recent administrations Medication Order MAR Action Action Date Dose Rate Site tocilizumab (ACTEMRA) 460 mg in NaCl 0.9 % IVPB 460 mg, at 100 mL/hr, Intravenous, ONCE, 1 dose, On Sun05/12/13 at 1215 $ Given 05/12/2013 12:19 PM GUN STRIPER 460 mg 100 mL/ hr documented in this encounter Care Teams Cafeteria Food Server Relationship Specialty Start Date End Date Nolberto Nicole MD PCP - General 07/21/08 12/30/13 Isidro Heredia MD Rheumatology 02/09/11 documented as of this encounter
--- OUTSIDE RECORDS SUMMARY | 2024-05-10 10:28 | XMS_ITS | Encounter Summary ---
Author Organization [facility] Address [address] [place] [address] Care Team Providers Care Personnel Specialist Name Role Phone Nolberto Nicole MD Primary Care Provider Isidro Heredia MD Unavailable [phone] Reason for Visit * Reason Comments Rheumatoid Arthritis * Consult, Test & Treat (Routine) - Closed Specialty Diagnoses / Procedures Referred By Contsarahi t Referred To Contact Diagnoses Rheumatoid arthritis(714.0) (HCC) Procedures [place] OFFICE VISIT DURING HOURS Nolberto Nicole MD [address] [place] [address] Isidro Heredia MD [address] [place] [address] Referral ID Status Reason Start Date Expiration Date Visits Re quested Visits Authorized [id number] Closed 03/14/2013 09/11/2013 1 6 Encounter Details Date Type Department Care Team (Late st Contact Info) Description 08/07/2013 2:30 PM CDT Office Visit [facility] Medical [facility] - Rheumatology [address] [place] [address] Isidro Heredia MD [address] [place] [address] Rheumatoid arthritis (HCC) (Primary Dx); [...] PO) Take by mouth once daily. ??? Zcovbukmqbe-Vpkmlppif-Odh C-Mn (GLUCOSAMINE CHONDR 1500 COMPLX PO) Take [...] st Contact Info) Description 06/03/2024 1:00 PM SLASHER HAND Appointment [facility] - Rheumatology [address] [place] [address] 06/03/2024 2:00 PM SLASHER HAND Office Visit [facility] - Rheumatology [address] [place] [address] [phone] Gloria Smith MD [address] [place] [phone] documented as of this encounter Visit Diagnoses Diagnosis Rheumatoid arthritis(714.0) (HCC)- Primary Rheumatoid arthritis Chronic pain syndrome documented in this encounter Care Teams Personnel Specialist Relationship Specialty Start Date End Date Nolberto Nicole MD PCP - General 07/21/08 12/30/13 Isidro Heredia MD Rheumatology 02/09/11 documented as of this encounter
--- OUTSIDE RECORDS SUMMARY | 2024-05-10 10:28 | XMS_ITS | Encounter Summary ---
Author Organization [facility] Address [address] [facility] [place] [address] Care Team Providers Care Intelligence Manager Name Role Phone Nolberto Nicole MD Primary Care Provider [phone] Isidro Heredia MD Unavailable Reason for Visit [...] To Contact Diagnoses Rheumatoid arthritis(714.0) ([facility]) Procedures [place] OFFICE VISIT DURING HOURS Nolberto Nicole MD [address] [place] [address] Isidro Heredia MD [address] [place] [address] Referral ID Status Reason Start Date Expiration Date Visits Re quested Visits Authorized [id number] Closed 03/14/2013 09/11/2013 1 6 Encounter Details Date Type Department Care Team (Late st Contact Info) Description 06/10/2013 2:15 PM MACHINE BINDER STRIPPER Office Visit [facility] - Rheumatology [address] [place] [address] Isidro Heredia MD [address] [place] [address] Rheumatoid arthritis (HCC) (Primary Dx); Chronic pain [...] Comments Blood Pressure 130/80 06/10/2013 2:17 PM MACHINE BINDER STRIPPER Pulse 88 06/10/2013 2:17 PM MACHINE BINDER STRIPPER Temperature - - Respiratory Rate - - Oxygen Saturation - - Inhaled Oxygen Concentration - - Weight 113.4 kg (250 lb) 06/10/2013 2:17 PM MACHINE BINDER STRIPPER Height - - Body Mass Index 35.87 06/10/2013 2:00 PM MACHINE BINDER STRIPPER documented in this encounter Progress Notes * [...] Active Take by mouth once daily. ??? Quetuujomwo-Mvmkvbdvp-Ias C-Mn (GLUCOSAMINE CHONDR 1500 COMPLX PO) Active [...] Follow up in office in 4 weeks INE BINDER STRIPPER documented in this encounter Plan of Treatment Upcoming Encounters Date Type Department Care Team (Late st Contact Info) Description 06/03/2024 1:00 PM MACHINE BINDER STRIPPER Appointment [facility] - Rheumatology [address] [place] [address] [phone] 06/03/2024 2:00 PM MACHINE BINDER STRIPPER Office Visit [facility] - Rheumatology [address] [place] [address] [phone] Gloria Smith MD [address] [place] [phone] documented as of this encounter Visit Diagnoses Diagnosis Rheumatoid arthritis(714.0) (HCC)- Primary Rheumatoid arthritis Chronic pain syndrome Hyperlipidemia Other and unspecified hyperlipidemia documented in this encounter Care Teams Intelligence Manager Relationship Specialty Start Date End Date Nolberto Nicole MD PCP - General 07/21/08 12/30/13 Isidro Heredia MD Rheumatology 02/09/11 documented as of this encounter
--- OUTSIDE RECORDS SUMMARY | 2024-05-10 10:28 | XMS_ITS | Encounter Summary ---
Author Organization [facility] Address [address] [place] [address] Care Team Providers Care Acute Care Certified Nursing Assistant Name Role Phone Nolberto Nicole MD Primary Care Provider [phone] Isidro Heredia MD Unavailable [phone] Reason for Visit * Reason Comments Refill Request Encounter Details Date Type Department Care Team (Late Contact Info) Description 07/17/2013 Refill [facility] - Rheumatology [address] [place] [address] Isidro Heredia MD [address] [place] [address] Refill Request Social History Tobacco Use [...] (Late Contact Info) Description 06/03/2024 1:00 PM PATIENT TRANSITION SPECIALIST Appointment [facility] - Rheumatology [address] [place] [address] 06/03/2024 2:00 PM PATIENT TRANSITION SPECIALIST Office Visit [facility] - Rheumatology [address] [place] [address] Gloria Smith MD [address] [place] [address] [place] [phone] documented as of this encounter Visit Diagnoses Not on filedocumented in this encounter Care Teams Acute Care Certified Nursing Assistant Relationship Specialty Start Date End Date Nolberto Nicole MD PCP - General 07/21/08 12/30/13 Isidro Heredia MD Rheumatology 02/09/11 documented as of this encounter
--- OUTSIDE RECORDS SUMMARY | 2024-05-10 10:28 | XMS_ITS | Encounter Summary ---
Author Organization [facility] Address [address] [place] [address] Care Team Providers Care Tool Supervisor Name Role Phone Nolberto Nicole MD Primary Care Provider Isidro Heredia MD Unavailable [phone] Reason for Visit * Reason Comments Rheumatoid Arthritis Pain Back lower rt side down l eg. off work for 2 weeks Swelling hands, knees, should ers Pain Joint all over * Consult, Test & Treat (Routine) - Closed Specialty Diagnoses / Procedures Referred By Contac t Referred To Contact Diagnoses Rheumatoid arthritis(714.0) ([facility]) Procedures [place] OFFICE VISIT DURING HOURS Nolberto Nicole MD [address] [place] [address] Isidro Heredia MD [address] [place] [address] Referral ID Status Reason Start Date Expiration Date Visits Re quested Visits Authorized [id number] Closed 09/30/2013 03/28/2014 1 6 Encounter Details Date Type Department Care Team (Late st Contact Info) Description 11/12/2013 3:30 PM CDT Office Visit [facility] [email or web address] Medical [facility] - Rheumatology [address] [place] [address] Isidro Heredia MD [address] [facility] [place] [address] Rheumatoid arthritis (HCC) (Primary Dx); [...] PO) Take by mouth once daily. ??? Yqspuxyeote-Eontrahvw-Fcs C-Mn (GLUCOSAMINE CHONDR 1500 COMPLX PO) Take by mouth once daily. ??? ZYRTEC 10 MG TABS Take 10 mg by mouth once daily. Seasonal (nov. Current Facility-Administered Medications on File Prior to Visit Medication Dose Route Frequency Provider Last Rate Last Dose ??? tocilizumab (ACTEMRA) 800 mg in 0.9% NaCl IVPB 800 mg Intravenous Once Isidro Heredia MD 800 mg at 11/12/13 1653 Patient Active Problem List Diagnosis ??? Rheumatoid [...] Info) Description 06/03/2024 1:00 PM PROFESSOR OF LITERATURE Appointment [facility] - Rheumatology [address] [place] [address] [phone] 06/03/2024 2:00 PM PROFESSOR OF LITERATURE Office Visit [facility] - Rheumatology [address] [place] [address] [phone] Gloria Smith MD [address] [place] [phone] documented as of this encounter Visit Diagnoses Diagnosis Rheumatoid arthritis(714.0) ([facility])- Primary Rheumatoid arthritis Chronic pain syndrome Lumbar radiculopathy Thoracic or lumbosacral neuritis or radiculitis, unspecified documented in this encounter Care Teams Tool Supervisor Relationship Specialty Start Date End Date Nolberto Nicole MD PCP - General 07/21/08 12/30/13 Isidro Heredia MD Rheumatology 02/09/11 documented as of this encounter
--- OUTSIDE RECORDS SUMMARY | 2024-05-10 10:28 | XMS_ITS | Encounter Summary ---
Author Organization [facility] Address [address] [place] [address] Care Team Providers Care Public Relations Manager Name Role Phone Nolberto Nicole MD Primary Care Provider [phone] Isidro Heredia MD Unavailable [phone] Reason for Visit * Treatment (Routine) - Closed Specialty Diagnoses / Procedures Referred By Lawrence shah Referred To Contact Infusion Therapy Nurse Diagnoses Rheumatoid arthritis(714.0) ([facility]) Procedures [place] INJECTION RITUXIMAB 100 MG Nolberto Nicole MD [address] [facility] [place] [address] Referral ID Status Reason Start Date Expiration Date Visits Re quested Visits Authorized [id number] Closed 04/30/2012 04/29/2013 1 4 Encounter Details Date Type Department Care Team (Late st Contact Info) Description 01/09/2013 11:30 AM CDT - 01/09/2013 11:59 PM CDT Hospital Encounter [facility] [employer] [facility] - Rheumatology [address] [place] [address] Isidro Heredia MD [address] [place] [address] Discharge Disposition: Home or Self Care [...] Foreman RN - 01/09/2013 12:42 PM CDT ID Rheumatology Post Infusion instructions [...] through Sunday 9-5 call the office at [phone] After hours or on the weekend call the exchange at [phone] If you have had lab work done [...] chosen [facility] as your provider. Carlos Foreman RN * Discharge Instructions* Document, Scanned - 01/22/2013 12:28 AM CDT documented in this encounter Medications at Time of Discharge Medication Sig Dispensed Refills Start Date End Date Glpanvdawvl-Cgwvzizzs-U it C-Mn (GLUCOSAMINE CHONDR 1500 COMPLX PO) [...] - 01/09/2013 12:38 PM CDT JOSE Deng [id number] 01/09/2013 Diagnosis: Rheumatoid arthritis [714.0]. Patient questionnaire [...] st Contact Info) Description 06/03/2024 1:00 PM SEMI AUTOMATIC SEWING MACHINE OPERATOR Appointment [facility] - Rheumatology [address] [place] [address] [phone] 06/03/2024 2:00 PM SEMI AUTOMATIC SEWING MACHINE OPERATOR Office Visit [facility] - Rheumatology [address] [place] [address] Gloria Smith MD [address] [place] [phone] documented as of this encounter Visit Diagnoses Not on filedocumented in this encounter Administered Medications Inactive Administered Medications - up to 3 most recent administrations Medication Order MAR Action Action Date Dose Rate Site diphenhydrAMINE (BENADRYL) injection 50 mg 50 mg, Intravenous, ONCE, 1 dose, On [facility] 01/09/13 at 1200, Max intravenous rate = 25 mg/min $ Given 01/09/2013 12:00 PM CDT 50 mg methylPREDNISolone sod succ (Solu-MEDROL) injection 125 mg 125 mg, Intravenous, ONCE, 1 dose, On [facility] 01/09/13 at 1215 $ Given 01/09/2013 12:05 PM CDT 125 mg rituximab (RITUXAN) 1,000 mg in NaCl 0.9 % infusion 1,000 mg, Intravenous, ONCE, 1 dose, On [facility] 01/09/13 at 1145, Stable for 24 hours refrigerate; 48 hours at room temperature . WASTE DISPOSAL INSTRUCTIONS: Chemo Bin Disposal required. . $ Given 01/09/2013 12:35 PM CDT 1,000 mg documented in this encounter Care Teams Public Relations Manager Relationship Specialty Start Date End Date Nolberto Nicole MD PCP - General 07/21/08 12/30/13 Isidro Heredia MD Rheumatology 02/09/11 documented as of this encounter
--- OUTSIDE RECORDS SUMMARY | 2024-05-10 10:28 | XMS_ITS | Encounter Summary ---
Author Organization [facility] Address [address] [place] [address] Care Team Providers Care Hydraulics Teacher Name Role Phone Nolberto Nicole MD Primary Care Provider Isidro Heredia MD Unavailable Reason for Referral * - Closed Specialty Diagnoses / Procedures Referred By Contac t Referred To Contact Diagnoses Pleurisy Abdominal pain Procedures CT THORAX ABDOMEN PELVIS W CONT Isidro Heredia MD [address] [place] [address] Referral ID Status Reason Start Date Expiration Date Visits Re quested Visits Authorized [id number] Closed 03/25/2013 09/21/2013 1 1 BUILDER HELPER Reason for Visit * - Closed Specialty Diagnoses / Procedures Referred By Contac t Referred To Contact Diagnoses Pleurisy Abdominal pain Procedures CT THORAX ABDOMEN PELVIS W CONT Isidro Heredia MD [address] [place] [address] Referral ID Status Reason Start Date Expiration Date Visits Re quested Visits Authorized [id number] Closed 03/25/2013 09/21/2013 1 1 Encounter Details Date Type Department Care Team (Late st Contact Info) Description 03/25/2013 8:41 AM TANK BUILDER HELPER - 03/25/2013 11:59 PM TANK BUILDER HELPER Hospital Encounter [facility] Health Imaging Services - CT Scan [address] [place] [address] Isidro Heredia MD [address] [facility] [place] [id number] Discharge Disposition: Home or Self Care Social [...] Sig Dispensed Refills Start Date End Date Wgwoeskkihq-Dgalhujyh-I it C-Mn (GLUCOSAMINE CHONDR 1500 COMPLX PO) [...] oxycodone-acetaminophen (PERCOCET) 5-325 MG tabletIndications:Rheum atoid arthritis(714.0) ([facility]) Take 1 Tab by mouth [...] Ct chest nl Ct abd benign diverticulosis BUILDER HELPER documented in this encounter Plan of Treatment Upcoming Encounters Date Type Department Care Team (Late st Contact Info) Description 06/03/2024 1:00 PM TANK BUILDER HELPER Appointment [facility] - Rheumatology [address] [place] [address] 06/03/2024 2:00 PM TANK BUILDER HELPER Office Visit [facility] - Rheumatology [address] [place] [address] Gloria Smith MD [address] [place] [phone] documented as of this encounter Procedures Procedure Name Priority Date/Time Associated Diagnosis Comments CT CHEST ABDOMEN PELVIS W CONT Routine 03/25/2013 8:59 AM TANK BUILDER HELPER Pleurisy Abdominal pain documented in this encounter Results * CT THORAX ABDOMEN PELVIS W CONT (03/25/2013 8:59 AM TANK BUILDER HELPER) Anatomical Region Laterality Modality Chest, Abdomen, Pelvis Computed Tomography 03/25/2013 11:5 3 AM TANK BUILDER HELPER Narrative 03/25/2013 11:57 AM TANK BUILDER HELPER Examination: CT chest with contrast. Indication [...] at 0117 $ Given 03/25/2013 8:59 AM TANK BUILDER HELPER 80 mL Right Arm documented in this encounter Care Teams Hydraulics Teacher Relationship Specialty Start Date End Date Nolberto Nicole MD PCP - General 07/21/08 12/30/13 Isidro Heredia MD Rheumatology 02/09/11 documented as of this encounter
--- OUTSIDE RECORDS SUMMARY | 2024-05-10 10:28 | XMS_ITS | Encounter Summary ---
Author Organization [facility] Address [address] [place] [address] Care Team Providers Care Maltster Name Role Phone Nolberto Nicole MD Primary Care Provider Isidro Heredia MD Unavailable [phone] Reason for Visit * Reason Comments Rheumatoid Arthritis pain scale: 7/10 am stiffness: all day tolerating meds well diarrhea:yes General since on the Rituxan her feels very nursing home manager the inside, no temp, off and on chills, joint soreness including whole spine, not sleeoing well get up 3-4 times a night Fatigue * Consult, Test & Treat (Routine) - Closed Specialty Diagnoses / Procedures Referred By Contsarahi t Referred To Contact Diagnoses Rheumatoid arthritis(714.0) ([facility]) Procedures CT OFFICE VISIT DURING HOURS Nolberto Nicole MD [address] [place] [address] Isidro Heredia MD [address] [place] [address] Referral ID Status Reason Start Date Expiration Date Visits Re quested Visits Authorized [id number] Closed 07/02/2012 12/29/2012 1 6 Encounter Details Date Type Department Care Team (Late st Contact Info) Description 09/16/2012 5:00 PM CDT Office Visit [facility] [employer] [facility] - Rheumatology [address] [place] [address] Isidro Heredia MD [address] [facility] [place] [address] Rheumatoid arthritis (HCC) (Primary Dx); Chronic pain [...] since on the Rituxan her feels very nursing home manager the inside, no temp, off and on [...] PO) Take by mouth once daily. ??? Lsscxiewjei-Duduykztb-Jsa C-Mn (GLUCOSAMINE CHONDR 1500 COMPLX PO) Take [...] since on the Rituxan her feels very nursing home manager the inside, no temp, off and on chills, joint soreness including whole spine, not sleeoing well get up 3-4 times a night ??? Fatigue BP 110/84 Pulse 80 Wt 250 lb 6.4 oz (113.581 kg) documented in this encounter Plan of Treatment Upcoming Encounters Date Type Department Care Team (Late st Contact Info) Description 06/03/2024 1:00 PM CLOTHES DESIGNER Appointment [facility] - Rheumatology [address] [place] [address] 06/03/2024 2:00 PM CLOTHES DESIGNER Office Visit [facility] - Rheumatology [address] [place] [address] Gloria Smith MD [address] [place] [phone] documented as of this encounter Visit Diagnoses Diagnosis Rheumatoid arthritis(714.0) (HCC)- Primary Rheumatoid arthritis Chronic pain syndrome documented in this encounter Care Teams Maltster Relationship Specialty Start Date End Date Nolberto Nicole MD PCP - General 07/21/08 12/30/13 Isidro Heredia MD Rheumatology 02/09/11 documented as of this encounter
--- OUTSIDE RECORDS SUMMARY | 2024-05-10 10:28 | XMS_ITS | Encounter Summary ---
Author Organization [facility] Address [address] [place] [address] Care Team Providers Care Well Servicing Rig Operator Name Role Phone Nolberto Nicole MD Primary Care Provider [phone] Isidro Heredia MD Unavailable Reason for Visit * Treatment (Routine) - Closed Specialty Diagnoses / Procedures Referred By Lawrence shah Referred To Contact Infusion Therapy Nurse Diagnoses Rheumatoid arthritis(714.0) ([facility]) Procedures [place] INJECTION TOCILIZUMAB 1 MG Isidro Heredia MD [address] [facility] [address] Referral ID Status Reason Start Date Expiration Date Visits Re quested Visits Authorized [id number] Closed 05/01/2013 04/29/2014 1 12 Encounter Details Date Type Department Care Team (Late st Contact Info) Description 06/10/2013 1:30 PM TRIMMING CUTTER MACHINE - 06/10/2013 11:59 PM TRIMMING CUTTER MACHINE Hospital Encounter [facility] - Rheumatology [address] [place] [address] Isidro Heredia MD [address] [place] [address] Discharge Disposition: Home or Self [...] Comments Blood Pressure 130/80 06/10/2013 2:00 PM TRIMMING CUTTER MACHINE Pulse 88 06/10/2013 2:00 PM TRIMMING CUTTER MACHINE Temperature 36.8 ??C (98.2 ??F) 06/10/2013 2:00 PM CS T Respiratory Rate 16 06/10/2013 2:00 PM TRIMMING CUTTER MACHINE Oxygen Saturation - - Inhaled Oxygen Concentration - - Weight 113.4 kg (250 lb) 06/10/2013 2:00 PM TRIMMING CUTTER MACHINE Height 177.8 cm (5' 10 ) 06/10/2013 2:00 PM TRIMMING CUTTER MACHINE Body Mass Index 35.87 06/10/2013 2:00 PM TRIMMING CUTTER MACHINE documented in this encounter Discharge Instructions * Discharge Instructions* Carlos Foreman, RN - 06/10/2013 2:05 PM TRIMMING CUTTER MACHINE [facility] Rheumatology Post Infusion instructions You have [...] through Sunday 9-5 call the office at [phone] After hours or on the weekend call the exchange at [phone] If you have had lab work done [...] Hospital as your provider. Carlos Foreman RN MING CUTTER MACHINE * Discharge Instructions* Document, Scanned - 06/19/2013 8:21 PM TRIMMING CUTTER MACHINE MING CUTTER MACHINE documented in this encounter Medications at Time of Discharge Medication Sig Dispensed Refills Start Date End Date Gfckjfhqxka-Umzkhorlj-Sk t C-Mn (GLUCOSAMINE CHONDR 1500 COMPLX PO) [...] oxycodone-acetaminophen (PERCOCET) 5-325 MG tabletIndications:Rheuma toid arthritis(714.0) ([facility] [...] - 06/10/2013 2:04 PM CST JOSE Deng [id number] 06/10/2013 Diagnosis: Rheumatoid arthritis [714.0]. Patient questionnaire [...] Yes Next treatment? 4wk Carlos Foreman RN MING CUTTER MACHINE documented in this encounter Miscellaneous Notes * Miscellaneous Scans - Document, Scanned - 06/18/2013 10:14 PM CST MING CUTTER MACHINE documented in this encounter Plan of Treatment Upcoming Encounters Date Type Department Care Team (Late st Contact Info) Description 06/03/2024 1:00 PM TRIMMING CUTTER MACHINE Appointment [facility] - Rheumatology [address] [place] [address] [phone] 06/03/2024 2:00 PM TRIMMING CUTTER MACHINE Office Visit [facility] - Rheumatology [address] [place] [address] [phone] Gloria Smith MD [address] [place] [phone] documented as of this encounter Visit Diagnoses Diagnosis Rheumatoid arthritis(714.0) ([facility])- Primary Rheumatoid arthritis documented in this encounter Administered Medications Inactive Administered Medications - up to 3 most recent administrations Medication Order MAR Action Action Date Dose Rate Site tocilizumab (ACTEMRA) 460 mg in NaCl 0.9 % IVPB 460 mg, at 100 mL/hr, Intravenous, ONCE, 1 dose, On Sun06/10/13 at 1345 $ Given 06/10/2013 2:03 PM TRIMMING CUTTER MACHINE 460 mg 100 mL/hr documented in this encounter Care Teams Well Servicing Rig Operator Relationship Specialty Start Date End Date Nolberto Nicole MD PCP - General 07/21/08 12/30/13 Isidro Heredia MD Rheumatology 02/09/11 documented as of this encounter
--- OUTSIDE RECORDS SUMMARY | 2024-05-10 10:28 | XMS_ITS | Encounter Summary ---
Author Organization [facility] Address [address] [place] [address] Care Team Providers Care Dragsaw Operator Name Role Phone Nolberto Nicole MD Primary Care Provider [phone] Isidro Heredia MD Unavailable [phone] Encounter Details Date Type Department Care Team (Late Contact Info) Description 04/07/2013 Orders Only [facility] - Rheumatology [address] [place] [address] Mirela Rodrigez RN Rheumatoid arthritis (HCC) [...] Contact Info) Description 06/03/2024 1:00 PM VIDEO MANAGER Appointment [facility] - Rheumatology [address] [place] [address] 06/03/2024 2:00 PM VIDEO MANAGER Office Visit [facility] - Rheumatology [address] [place] [address] Gloria Smith MD [address] [place] [phone] documented as of this encounter Visit Diagnoses Diagnosis Rheumatoid arthritis(714.0) ([facility])- Primary Rheumatoid arthritis documented in this encounter Care Teams Dragsaw Operator Relationship Specialty Start Date End Date Nolberto Nicole MD PCP - General 07/21/08 12/30/13 Isidro Heredia MD Rheumatology 02/09/11 documented as of this encounter
--- OUTSIDE RECORDS SUMMARY | 2024-05-10 10:28 | XMS_ITS | Encounter Summary ---
Author Organization [facility] Address [address] [place] [address] Care Team Providers Care Honey Extractor Name Role Phone Nolberto Nicole MD Primary Care Provider Isidro Heredia MD Unavailable [phone] Reason for Visit * Reason Comments Rheumatoid [...] Contact Diagnoses Rheumatoid arthritis(714.0) ([facility]) Procedures [place] OFFICE VISIT DURING HOURS Nolberto Nicole MD [address] [place] [address] Isidro Heredia MD [address] [place] [address] Referral ID Status Reason Start Date Expiration Date Visits Re quested Visits Authorized [id number] Closed 08/15/2012 02/11/2013 1 5 Encounter Details Date Type Department Care Team (Late st Contact Info) Description 10/14/2012 5:00 PM CDT Office Visit [facility] - Rheumatology [address] [place] [address] Isidro Heredia MD [facility] [place] [address] Rheumatoid arthritis (HCC) (Primary Dx); Chronic pain [...] PO) Take by mouth once daily. ??? Awpktqpinbn-Yzrvufwtw-Glo C-Mn (GLUCOSAMINE CHONDR 1500 COMPLX PO) Take [...] Contact Info) Description 06/03/2024 1:00 PM LEATHER REPAIRER Appointment [facility] - Rheumatology [address] [place] [address] 06/03/2024 2:00 PM LEATHER REPAIRER Office Visit [facility] - Rheumatology [address] [place] [address] Gloria Smith MD [address] [place] [phone] documented as of this encounter Procedures [...] CDT Narrative Resulting Agency Comment [facility] [address] ??[facility] [phone] Isidro Heredia MD LAB - HEMATOLOGY OR DERABLES [facility] ACCOUNT BILL * (ABNORMAL) C-REACTIVE PROTEIN (10/14/2012 5:46 PM CDT) C-Reactive Protein 8.4(H) 0.0 - 4.9 mg/L [facility] ACCOUNT BILL Blood specimen (specimen) BLOOD SPECIMEN / Unknown 10/14/2012 5:46 PM CDT 10/14/2012 7:28 PM CDT Narrative Resulting Agency Comment [facility] ??[facility] [phone] Isidro Heredia MD LAB - CHEMISTRY ORD ERABLES Performing Organization Address City/[place] Hospital/ZIP Co de Phone Number [facility] ACCOUNT [...] CDT Narrative Resulting Agency Comment [facility] [address] ??[facility] [phone] Isidro Heredia MD LAB - CHEMISTRY ORD [...] CDT Narrative Resulting Agency Comment [facility] [address] ??[facility] [phone] Isidro Heredia MD LAB - HEMATOLOGY OR DERABLES [facility] ACCOUNT BILL documented in this encounter Visit Diagnoses Diagnosis Rheumatoid arthritis(714.0) (HCC)- Primary Rheumatoid arthritis Chronic pain syndrome documented in this encounter Care Teams Honey Extractor Relationship Specialty Start Date End Date Nolberto Nicole MD PCP - General 07/21/08 12/30/13 Isidro Heredia MD Rheumatology 02/09/11 documented as of this encounter
--- OUTSIDE RECORDS SUMMARY | 2024-05-10 10:28 | XMS_ITS | Encounter Summary ---
Author Organization [facility] Address [address] [place] [address] Care Team Providers Care Party Plan Demonstrator Name Role Phone Nolberto Nicole MD Primary Care Provider [phone] Isidro Heredia MD Unavailable [phone] Reason for Visit * Reason Onset Date Comments Encounter Opened In Error 09/04/2013 Encounter Details Date Type Department Care Team (Late st Contact Info) Description 09/04/2013 Orders Only [facility] Medical [facility] - Rheumatology [address] [place] [address] Isidro Heredia MD [address] [place] [address] ERRONEOUS ENCOUNTER--DISREGARD Social History Tobacco Use [...] st Contact Info) Description 06/03/2024 1:00 PM SUBSTATION INSPECTOR Appointment [facility] - Rheumatology [address] [place] [address] 06/03/2024 2:00 PM SUBSTATION INSPECTOR Office Visit [facility] - Rheumatology [address] [place] [address] Gloria Smith MD [address] [place] [phone] documented as of this encounter Visit Diagnoses Diagnosis ERRONEOUS ENCOUNTER--DISREGARD- Primary documented in this encounter Care Teams Party Plan Demonstrator Relationship Specialty Start Date End Date Nolberto Nicole MD PCP - General 07/21/08 12/30/13 Isidro Heredia MD Rheumatology 02/09/11 documented as of this encounter
--- OUTSIDE RECORDS SUMMARY | 2024-05-10 10:28 | XMS_ITS | Encounter Summary ---
Author Organization [facility] Address [address] [place] [address] Care Team Providers Care Workforce Services Representative Name Role Phone Nolberto Nicole MD Primary Care Provider [phone] Isidro Heredia MD Unavailable [phone] Reason for Visit * Treatment (Routine) - Closed Specialty Diagnoses / Procedures Referred By Lawrence shah Referred To Contact Infusion Therapy Nurse Diagnoses Rheumatoid arthritis(714.0) ([facility]) Procedures MD INJECTION TOCILIZUMAB 1 MG Isidro Heredia MD [address] [place] [address] Referral ID Status Reason Start Date Expiration Date Visits Re quested Visits Authorized [id number] Closed 05/01/2013 04/29/2014 1 12 Encounter Details Date Type Department Care Team (Late st Contact Info) Description 12/12/2013 8:50 AM CDT - 12/12/2013 11:59 PM CDT Hospital Encounter [facility] - Rheumatology [address] [place] [address] Isidro Heredia MD [address] [place] [address] Discharge Disposition: Home or Self [...] Sierra RN - 12/12/2013 9:29 AM CDT [place] Rheumatology Post Infusion instructions [...] Sunday through Sunday-5 call the office at [phone] After hours or on the weekend call the exchange at [phone] If you have had lab work done [...] have chosen [facility] as your provider. Manisha Sierra RN documented in this encounter Medications at Time of Discharge Medication Sig Dispensed Refills Start Date End Date Pkfrugxeeuh-Kvdgqrymf-Jf t C-Mn (GLUCOSAMINE CHONDR 1500 COMPLX PO) [...] oxyCODONE-acetaminophen (PERCOCET) 5-325 MG tabletIndications:Rheuma toid arthritis(714.0) ([facility]) Take 1 Tab by mouth every 6 [...] - 12/12/2013 10:57 AM CDT JOSE Deng [id number] 12/12/2013 Diagnosis: Rheumatoid arthritis [714.0]. Patient questionnaire [...] st Contact Info) Description 06/03/2024 1:00 PM FRUIT OR NUT FARMWORKER Appointment [facility] - Rheumatology [address] [place] [address] 06/03/2024 2:00 PM FRUIT OR NUT FARMWORKER Office Visit [facility] - Rheumatology [address] [place] [address] Gloria Smith MD [address] [place] [phone] documented as of this encounter Visit Diagnoses Diagnosis Rheumatoid arthritis(714.0) ([facility])- Primary Rheumatoid arthritis documented in this encounter [...] mL/hr documented in this encounter Care Teams Workforce Services Representative Relationship Specialty Start Date End Date Nolberto Nicole MD PCP - General 07/21/08 12/30/13 Isidro Heredia MD Rheumatology 02/09/11 documented as of this encounter
--- OUTSIDE RECORDS SUMMARY | 2024-05-10 10:28 | XMS_ITS | Encounter Summary ---
Author Organization [facility] Address [address] [place] [address] Care Team Providers Care Computer Information Systems Instructor Name Role Phone Nolberto Nicole MD Primary Care Provider [phone] Isidro Heredia MD Unavailable Reason for Visit * Reason Comments Rheumatoid Arthritis pain scle:8/10 am s tiffness: no tolerating meds well no fever/chill Shoulder Pain pain scle:9/10 Swelling Hand with shooting pain Pain Knee obdulia with shooting pa in * Evaluate & Treat (Routine) - Closed Specialty Diagnoses / Procedures Referred By Lawrence shah Referred To Contact Diagnoses Rheumatoid arthritis(714.0) ([facility]) Procedures [place] OFFICE VISIT DURING HOURS Nolberto Nicole MD [address] [place] [address] Isidro Heredia MD [address] [place] [address] Referral ID Status Reason Start Date Expiration Date Visits Re quested Visits Authorized [id number] Closed 08/15/2012 02/11/2013 1 5 Encounter Details Date Type Department Care Team (Late st Contact Info) Description 12/09/2012 5:00 PM CDT Office Visit [facility] - Rheumatology [address] [place] [address] Isidro Heredia MD [facility] [place] [place] [address] Rheumatoid arthritis (HCC) (Primary Dx); Chronic pain [...] PO) Take by mouth once daily. ??? Bcwdrbsdecj-Phtkpxvev-Pam C-Mn (GLUCOSAMINE CHONDR 1500 COMPLX PO) Take [...] Contact Info) Description 06/03/2024 1:00 PM DIRECTOR MOBILE Appointment [facility] - Rheumatology [address] [place] [address] [phone] 06/03/2024 2:00 PM DIRECTOR MOBILE Office Visit [facility] - Rheumatology [address] [place] [address] [phone] Gloria Smith MD [address] [place] [phone] documented as of this encounter Procedures Procedure [...] PM CDT Narrative Resulting Agency Comment [facility] [address] ??Formerly [facility] [phone] Isidro Heredia MD LAB - HEMATOLOGY OR DERABLES [facility] ACCOUNT BILL * C-REACTIVE PROTEIN (12/09/2012 5:49 PM CDT) C-Reactive Protein 2.9 0.0 - 4.9 mg/L [facility] ACCOUNT BILL Blood specimen (specimen) BLOOD SPECIMEN / Unknown 12/09/2012 5:49 PM CDT 12/09/2012 7:39 PM CDT Narrative Resulting Agency Comment [facility] [address] ??Formerly [facility] [phone] Isidro Heredia MD LAB - CHEMISTRY ORD ERABLES Performing Organization Address City/[facility]/ZIP Co de Phone Number [facility] ACCOUNT BILL [...] PM CDT Narrative Resulting Agency Comment [facility] [place] [id number] [facility] ??Formerly [facility] [phone] Isidro Heredia MD LAB - CHEMISTRY ORD [...] CDT Narrative Resulting Agency Comment [facility] [address] ??Formerly [facility] [phone] Isidro Heredia MD LAB - HEMATOLOGY OR DERABLES [facility] ACCOUNT BILL documented in this encounter Visit Diagnoses Diagnosis Rheumatoid arthritis(714.0) (HCC)- Primary Rheumatoid arthritis Chronic pain syndrome documented in this encounter Care Teams Computer Information Systems Instructor Relationship Specialty Start Date End Date Nolberto Nicole MD PCP - General 07/21/08 12/30/13 Isidro Heredia MD Rheumatology 02/09/11 documented as of this encounter
--- OUTSIDE RECORDS SUMMARY | 2024-05-10 10:28 | XMS_ITS | Encounter Summary ---
Author Organization [facility] Address [address] [facility] [place] [address] Care Team Providers Care Food Preservation Scientist Name Role Phone Nolberto Nicole MD Primary Care Provider [phone] Isidro Heredia MD Unavailable Tomas Hyman MD Primary Care Provider [phone] Encounter Details Date Type Department Care Team (Late st Contact Info) Description 01/09/2013 Orders Only [facility] - Rheumatology [address] [place] [address] Carlos Foreman RN Social History Tobacco [...] (Late Contact Info) Description 06/03/2024 1:00 PM CAREGIVER SERVICES HOME Appointment [facility] - Rheumatology [address] [place] [address] 06/03/2024 2:00 PM CAREGIVER SERVICES HOME Office Visit [facility] - Rheumatology [address] [place] [address] Gloria Smith MD [address] [place] [phone] documented as of this encounter Visit Diagnoses Not on filedocumented in this encounter Care Teams Food Preservation Scientist Relationship Specialty Start Date End Date Nolberto Nicole MD PCP - General 07/21/08 12/30/13 Tomas Hyman MD [address] [facility] [address] [place] [address] PCP - General Family Medicine 12/31/13 05/09/18 Isidro Heredia MD Rheumatology 02/09/11 documented as of this encounter
--- OUTSIDE RECORDS SUMMARY | 2024-05-10 10:28 | XMS_ITS | Encounter Summary ---
Author Organization [facility] Address [address] [place] [address] Care Team Providers Care Lumber Piler Operator Name Role Phone Nolberto Nicole MD Primary Care Provider [phone] Isidro Heredia MD Unavailable [phone] Reason for Visit * Treatment (Routine) - Closed Specialty Diagnoses / Procedures Referred By Lawrence shah Referred To Contact Infusion Therapy Nurse Diagnoses Rheumatoid arthritis(714.0) ([facility]) Procedures [place] INJECTION TOCILIZUMAB 1 MG Isidro Heredia MD [address] [place] [address] Referral ID Status Reason Start Date Expiration Date Visits Re quested Visits Authorized [id number] Closed 05/01/2013 04/29/2014 1 12 Encounter Details Date Type Department Care Team (Late st Contact Info) Description 10/15/2013 11:00 AM CDT - 10/15/2013 11:59 PM T Hospital Encounter [facility] - Rheumatology [address] [place] [address] Isidro Heredia MD [address] [place] [address] Discharge Disposition: Home or Self [...] Sierra RN - 10/15/2013 11:17 AM CDT [place] Rheumatology Post Infusion instructions You [...] through Sunday 9-5 call the office at [phone] After hours or on the weekend call the exchange at [phone] If you have had lab work done [...] chosen [facility] as your provider. Manisha Sierra RN documented in this encounter Medications at Time of Discharge Medication Sig Dispensed Refills Start Date End Date Anppaignzlt-Cnzkaxpwm-Vt t C-Mn (GLUCOSAMINE CHONDR 1500 COMPLX PO) [...] - 10/15/2013 12:12 PM CDT JOSE Deng [id number] 10/15/2013 Diagnosis: Rheumatoid arthritis [714.0]. Patient questionnaire [...] st Contact Info) Description 06/03/2024 1:00 PM PIECE PRESSER Appointment [facility] - Rheumatology [address] [place] [address] 06/03/2024 2:00 PM PIECE PRESSER Office Visit [facility] - Rheumatology [address] [place] [address] Gloria Smith MD [address] [place] [phone] documented as of this encounter Visit Diagnoses [...] hr documented in this encounter Care Teams Lumber Piler Operator Relationship Specialty Start Date End Date Nolberto Nicole MD PCP - General 07/21/08 12/30/13 Isidro Heredia MD Rheumatology 02/09/11 documented as of this encounter
--- OUTSIDE RECORDS SUMMARY | 2024-05-10 10:28 | XMS_ITS | Encounter Summary ---
Author Organization [facility] Address [address] [facility] [place] [address] Care Team Providers Care Field Identification Specialist Name Role Phone Nolberto Nicole MD Primary Care Provider Isidro Heredia MD Unavailable Reason for Visit * Reason Comments Rheumatoid Arthritis Pain Joint upper and lower extr emities all over especially the rt hand and knees * Evaluate & Treat (Routine) - Closed Specialty Diagnoses / Procedures Referred By Lawrence t Referred To Contact Diagnoses Rheumatoid arthritis(714.0) (HCC) Procedures [place] OFFICE VISIT DURING HOURS Nolberto Nicole MD 0 [place] [address] Isidro Heredia MD [address] [place] [address] Referral ID Status Reason Start Date Expiration Date Visits Re quested Visits Authorized [id number] Closed 08/15/2012 02/11/2013 1 5 Encounter Details Date Type Department Care Team (Late st Contact Info) Description 02/10/2013 5:00 PM CDT Office [facility] - Rheumatology [address] [place] [address] Isidro Heredia MD [address] [place] [address] Rheumatoid arthritis (HCC) (Primary Dx); [...] Active Take by mouth once daily. ??? Hivjemhgysa-Zzdptmoih-Myw C-Mn (GLUCOSAMINE CHONDR 1500 COMPLX PO) Active [...] st Contact Info) Description 06/03/2024 1:00 PM RETANNER Appointment [facility] - Rheumatology [address] [place] [address] [phone] 06/03/2024 2:00 PM RETANNER Office Visit [facility] - Rheumatology [address] [place] [address] [phone] Gloria Smith MD [address] [place] [phone] documented as of this encounter Procedures Procedure [...] (Smooth) ? Histone ? Speckled ? Sm, BAGMAN/WOMAN, SCL-70, ??SLE,MCTD,Scleroderma,Sjogrens ? SS-A/SS-B ? Nucleolar ?SCL-70, PM-1/SCL ??High titers Scleroderma Poly- ? myositis/Scleroderma Overlap ? Centromere ?? Centromere ?PSS w/Crest syndrome variable ?? 02/10/2013 5:37 PM CDT 02/10/2013 7:03 PM CDT Narrative Resulting Agency Comment [facility] [address] [place] [address] ??[facility] [phone] Isidro Heredia MD LAB - PATHOLOGY/CYT OLOGY [...] PM CDT Narrative Resulting Agency Comment [facility] [address] ??[facility] [phone] Isidro Heredia MD LAB - SEROLOGY ORDE RABDO Performing Organization Address [facility]/ZIP Co de Phone Number [facility] ACCOUNT BILL * RHEUMATOID FACTOR BLOOD QUANTITATIVE (02/10/2013 5:37 PM CDT) Rheumatoid Factor 9.6 0.0 - 13.9 IU/mL [facility] ACCOUNT BILL Blood specimen (specimen) BLOOD SPECIMEN / Unknown 02/10/2013 5:37 PM CDT 02/10/2013 7:03 PM CDT Narrative Resulting Agency Comment [facility] [address] [place] [address] ??[facility] [phone] Isidro Heredia MD LAB - CHEMISTRY ORD ERABLES Performing Organization Address [facility] de Phone Number [facility] ACCOUNT BILL * ROSA BLOOD SCREEN W/REFLEX TITER (02/10/2013 5:37 PM CDT) ROSA See patterns [facility] ACCOUNT BILL Comment: ?Negative ?? <1:80 ?Borderline ??1:80 ?Positive ?? >1:80 Blood specimen (specimen) BLOOD SPECIMEN / Unknown 02/10/2013 5:37 PM CDT 02/10/2013 7:03 PM CDT Narrative Resulting Agency Comment [facility] [phone] ??[facility] [phone] Isidro Heredia MD LAB - CHEMISTRY ORD ERABLES Performing Organization Address [facility] Co de Phone Number [facility] ACCOUNT BILL * SED RATE WESTERGREN (02/10/2013 5:33 PM CDT) Erythrocyte Sedimentation Rate Westergren 26 0 - 30 mm/hr [facility] ACCOUNT BILL Blood specimen (specimen) BLOOD SPECIMEN / Unknown 02/10/2013 5:33 PM CDT 02/10/2013 7:03 PM CDT Narrative Resulting Agency Comment [facility] [id number] ??[facility] [phone] Isidro Heredia MD LAB - HEMATOLOGY OR DERABLES Performing Organization Address [facility] de Phone Number [facility] ACCOUNT BILL * C-REACTIVE PROTEIN (02/10/2013 5:33 PM CDT) C-Reactive Protein 4.9 0.0 - 4.9 mg/L [facility] ACCOUNT BILL Blood specimen (specimen) BLOOD SPECIMEN / Unknown 02/10/2013 5:33 PM CDT 02/10/2013 7:03 PM CDT Narrative Resulting Agency Comment [facility] [id number] ??[facility] [phone] Isidro Heredia MD LAB - CHEMISTRY ORD ERABLES Performing Organization Address [facility] Co de Phone Number [facility] [...] CDT Narrative Resulting Agency Comment [facility] [address] ??[facility] [phone] Isidro Heredia MD LAB - CHEMISTRY ORD [...] PM CDT Narrative Resulting Agency Comment [facility] [place] [id number] [facility] ??[facility] [phone] Isidro Heredia MD LAB - HEMATOLOGY OR DERABLES [facility] ACCOUNT BILL documented in this encounter Visit Diagnoses Diagnosis Rheumatoid arthritis(714.0) (HCC)- Primary Rheumatoid arthritis Osteopenia Disorder of bone and cartilage, unspecified Chronic pain syndrome documented in this encounter Care Teams Field Identification Specialist Relationship Specialty Start Date End Date Nolberto Nicole MD PCP - General 07/21/08 12/30/13 Isidro Heredia MD Rheumatology 02/09/11 documented as of this encounter
--- OUTSIDE RECORDS SUMMARY | 2024-05-10 10:28 | XMS_ITS | Encounter Summary ---
Author Organization [facility] Address [address] [facility] [place] [address] Care Team Providers Care Cloth Bin Packer Name Role Phone Nolberto Nicole MD Primary Care Provider [phone] Isidro Heredia MD Unavailable [phone] Encounter Details Date Type Department Care Team (Late st Contact Info) Description 09/04/2013 Orders Only [facility] - Rheumatology [address] [place] [address] [phone] Isidro Heredia MD [address] [place] [address] Rheumatoid arthritis (HCC) Social History Tobacco [...] st Contact Info) Description 06/03/2024 1:00 PM CONVERTIBLE TOP INSTALLER Appointment [facility] - Rheumatology [address] [place] [address] [phone] 06/03/2024 2:00 PM CONVERTIBLE TOP INSTALLER Office Visit [facility] - Rheumatology [address] [place] [address] Gloria Smith MD [address] [place] [phone] documented as of this encounter Procedures Procedure [...] PM CDT Narrative Resulting Agency Comment [facility] [place] [id number] [facility] ??[facility] [phone] Isidro Heredia MD LAB - HEMATOLOGY OR [...] CDT Narrative Resulting Agency Comment [facility] [address] ??[facility] [phone] Isidro Heredia MD LAB - CHEMISTRY ORD [...] CDT Narrative Resulting Agency Comment [facility] [address] ??[facility] [phone] Isidro Heredia MD LAB - HEMATOLOGY OR DERABLES [facility] INSURANCE BILL documented in this encounter Visit Diagnoses Diagnosis Rheumatoid arthritis(714.0) (HCC)- Primary Rheumatoid arthritis documented in this encounter Care Teams Cloth Bin Packer Relationship Specialty Start Date End Date Nolberto Nicole MD PCP - General 07/21/08 12/30/13 Isidro Heredia MD Rheumatology 02/09/11 documented as of this encounter
--- OUTSIDE RECORDS SUMMARY | 2024-05-10 10:28 | XMS_ITS | Encounter Summary ---
Author Organization [facility] Address [address] [facility] [place] [address] Care Team Providers Care Gasoline Tractor Operator Name Role Phone Nolberto Nicole MD Primary Care Provider [phone] Isidro Heredia MD Unavailable [phone] Reason for Visit * Treatment (Routine) - Closed Specialty Diagnoses / Procedures Referred By Lawrence shah Referred To Contact Infusion Therapy Nurse Diagnoses Rheumatoid arthritis(714.0) ([facility]) Procedures [place] INJECTION TOCILIZUMAB 1 MG Isidro Heredia MD [address] [place] [address] Referral ID Status Reason Start Date Expiration Date Visits Re quested Visits Authorized [id number] Closed 03/07/2013 06/05/2013 1 5 Encounter Details Date Type Department Care Team (Late st Contact Info) Description 03/21/2013 12:50 PM FOOD ASSEMBLER KITCHEN - 03/21/2013 11:59 PM FOOD ASSEMBLER KITCHEN Hospital Encounter [facility] - Rheumatology [address] [place] [address] Isidro Heredia MD [address] [place] [address] Discharge Disposition: Home or Self [...] Sig Dispensed Refills Start Date End Date Lcxyzcvmmyj-Tpesczsfo-Z it C-Mn (GLUCOSAMINE CHONDR 1500 COMPLX PO) [...] Document, Scanned - 04/01/2013 10:03 PM CST ASSEMBLER KITCHEN documented in this encounter Plan of Treatment Upcoming Encounters Date Type Department Care Team (Late st Contact Info) Description 06/03/2024 1:00 PM FOOD ASSEMBLER KITCHEN Appointment [facility] - Rheumatology [address] [place] [address] 06/03/2024 2:00 PM FOOD ASSEMBLER KITCHEN Office Visit [facility] - Rheumatology [address] [place] [address] Gloria Smith MD [address] [place] [place] [phone] documented as of this encounter Visit Diagnoses Not on filedocumented in this encounter Care Teams Gasoline Tractor Operator Relationship Specialty Start Date End Date Nolberto Nicole MD PCP - General 07/21/08 12/30/13 Isidro Heredia MD Rheumatology 02/09/11 documented as of this encounter
--- OUTSIDE RECORDS SUMMARY | 2024-05-10 10:28 | XMS_ITS | Encounter Summary ---
Author Organization [facility] Address [address] [place] [address] Care Team Providers Care Professor Of English Name Role Phone Nolberto Nicole MD Primary Care Provider [phone] Isidro Heredia MD Unavailable [phone] Reason for Visit * Reason Comments Rheumatoid Arthritis * Consult, Test & Treat (Routine) - Closed Specialty Diagnoses / Procedures Referred By Contsarahi t Referred To Contact Diagnoses Rheumatoid arthritis(714.0) (HCC) Procedures [place] OFFICE VISIT DURING HOURS Nolberto Nicole MD [address] [place] [address] Isidro Heredia MD [address] [place] [address] Referral ID Status Reason Start Date Expiration Date Visits Re quested Visits Authorized [id number] Closed 03/14/2013 09/11/2013 1 6 Encounter Details Date Type Department Care Team (Late st Contact Info) Description 07/09/2013 2:00 PM CDT Office Visit [facility] Medical [facility] - Rheumatology [address] [place] [address] Isidro Heredia MD [address] [place] [address] Rheumatoid arthritis (HCC) (Primary Dx); Chronic [...] Body Mass Index 20.66 06/10/2013 2:00 PM HOT BOX OPERATOR documented in this encounter Progress Notes [...] PO) Take by mouth once daily. ??? Awkyqggagxo-Bhhvltkdo-Yvi C-Mn (GLUCOSAMINE CHONDR 1500 COMPLX PO) Take [...] Contact Info) Description 06/03/2024 1:00 PM HOT BOX OPERATOR Appointment [facility] - Rheumatology [address] [place] [address] 06/03/2024 2:00 PM HOT BOX OPERATOR Office Visit [facility] - Rheumatology [address] [place] [address] Gloria Smith MD [address] [place] [phone] documented as of this encounter Visit Diagnoses Diagnosis Rheumatoid arthritis(714.0) (HCC)- Primary Rheumatoid arthritis Chronic pain syndrome documented in this encounter Care Teams Professor Of English Relationship Specialty Start Date End Date Nolberto Nicole MD PCP - General 07/21/08 12/30/13 Isidro Heredia MD Rheumatology 02/09/11 documented as of this encounter
--- OUTSIDE RECORDS SUMMARY | 2024-05-10 10:28 | XMS_ITS | Encounter Summary ---
Author Organization [facility] Address [address] [place] [address] [place] [address] Care Team Providers Care Bag Mender Name Role Phone Nolberto Nicole MD Primary Care Provider [phone] Isidro Heredia MD Unavailable [phone] Reason for Visit * Reason Onset Date Comments Results 04/02/2013 Encounter Details Date Type Department Care Team (Late st Contact Info) Description 04/02/2013 Telephone [facility] Medical [facility] - Family Medicine [address] [place] [address] Isidro Heredia MD [address] [place] [address] Results Social History Tobacco Use Types [...] call on 04/04/13. Informed him per [facility] [employer], they due not allow phone in or fax scripts. Pt must bring in scripts. He given me [facility] number to send his rx over. Laterin the conversation, pt said to disregard calling in the prescriptions. He is feeling a lot better than before. He will call the office back if sx persist. DDLE BUG OPERATOR * Telephone Encounter - Rea Hagan MA - 04/04/2013 9:55 AM CST Lmr to call office with new pharm number DDLE BUG OPERATOR * Telephone Encounter - Rea Hagan MA - 04/03/2013 5:09 PM CST Informed pt per Dr Valiente results shows diverticulosis and its ok to restart infusion. Also he c/o side pain. Instruct to take Neurontin [address] Valiente. Pharm closed. He will call tomorrow with a local pharm number instead DDLE BUG OPERATOR * Telephone Encounter - Rea Hagan MA - 04/02/2013 4:22 PM CST This is noted. Results on Dr Valiente desk for review DDLE BUG OPERATOR * Telephone Encounter - Erika Julien - 04/02/2013 2:45 PM CST Pt wants his ct results , dr is holding his infusion till he finds out what is causing the pain DDLE BUG OPERATOR documented in this encounter Plan of Treatment Upcoming Encounters Date Type Department Care Team (Late st Contact Info) Description 06/03/2024 1:00 PM STRADDLE BUG OPERATOR Appointment [facility] - Rheumatology [address] [place] [address] 06/03/2024 2:00 PM STRADDLE BUG OPERATOR Office Visit [facility] - Rheumatology [address] [place] [address] [phone] Gloria Smith MD [address] [place] [phone] documented as of this encounter Visit Diagnoses Not on filedocumented in this encounter Care Teams Bag Mender Relationship Specialty Start Date End Date Nolberto Nicole MD PCP - General 07/21/08 12/30/13 Isidro Heredia MD Rheumatology 02/09/11 documented as of this encounter
--- OUTSIDE RECORDS SUMMARY | 2024-05-10 10:28 | XMS_ITS | Encounter Summary ---
Author Organization [facility] Address [address] [place] [address] Care Team Providers Care Risk Control Representative Name Role Phone Nolberto Nicole MD Primary Care Provider Isidro Heredia MD Unavailable Reason for Visit * Reason Comments Rheumatoid Arthritis pain scale: [address] iffness: Chest Pain left side. sob whem doing yard work Hospital Follow-up [facility] (E R) october 25 2012 regarding bladder infection. taking Cipro and Flomax * Evaluate & Treat (Routine) - Closed Specialty Diagnoses / Procedures Referred By Lawrence shah Referred To Contact Diagnoses Rheumatoid arthritis(714.0) ([facility]) Procedures UT OFFICE VISIT DURING HOURS Nolberto Nicole MD [address] [place] [address] Isidro Heredia MD [address] [place] [address] Referral ID Status Reason Start Date Expiration Date Visits Re quested Visits Authorized [id number] Closed 08/15/2012 02/11/2013 1 5 Encounter Details Date Type Department Care Team (Late st Contact Info) Description 11/11/2012 5:15 PM CDT Office Visit [facility] - Rheumatology [address] [place] [address] Isidro Heredia MD [address] [place] [address] Rheumatoid arthritis (HCC) (Primary Dx); Chronic pain [...] whem doing yard work ??? Hospital Follow-up [facility] (ER) october 25 2012 regarding bladder [...] PO) Take by mouth once daily. ??? Gsfehoipgqo-Ofvrimsbn-Bpm C-Mn (GLUCOSAMINE CHONDR 1500 COMPLX PO) Take [...] whem doing yard work ??? Hospital Follow-up [facility] (ER) october 25 2012 regarding bladder infection. taking Cipro and Flomax BP 124/90 Pulse 84 Wt 111.041 kg (244 lb 12.8 oz) documented in this encounter Plan of Treatment Upcoming Encounters Date Type Department Care Team (Late st Contact Info) Description 06/03/2024 1:00 PM STICKER OPERATOR Appointment [facility] - Rheumatology [address] [place] [address] [phone] 06/03/2024 2:00 PM STICKER OPERATOR Office Visit [facility] - Rheumatology [address] [place] [address] [phone] Gloria Smith MD [address] [place] [phone] documented as of this encounter Visit Diagnoses Diagnosis Rheumatoid arthritis(714.0) ([facility])- Primary Rheumatoid arthritis Chronic pain syndrome Acute UTI Urinary tract infection, site not specified documented in this encounter Care Teams Risk Control Representative Relationship Specialty Start Date End Date Nolberto Nicole MD PCP - General 07/21/08 12/30/13 Isidro Heredia MD Rheumatology 02/09/11 documented as of this encounter
--- OUTSIDE RECORDS SUMMARY | 2024-05-10 10:28 | XMS_ITS | Encounter Summary ---
Author Organization [facility] Address [address] [facility] [place] [address] Care Team Providers Care Owner Operator Name Role Phone Nolberto Nicole MD Primary Care Provider [phone] Isidro Heredia MD Unavailable [phone] Encounter Details Date Type Department Care Team (Late st Contact Info) Description 09/02/2012 Orders Only [facility] - Rheumatology [address] [place] [address] [phone] Isidro Heredia MD [address] [place] [address] Rheumatoid arthritis (HCC) Social History Tobacco [...] st Contact Info) Description 06/03/2024 1:00 PM INVESTIGATIVE WRITER Appointment [facility] - Rheumatology [address] [place] [address] [phone] 06/03/2024 2:00 PM INVESTIGATIVE WRITER Office Visit [facility] - Rheumatology [address] [place] [address] Gloria Smith MD [address] [place] [phone] documented as of this encounter Procedures Procedure [...] PM CDT Narrative Resulting Agency Comment [facility] [address] [facility] ??[facility] [phone] Isidro Heredia MD LAB - HEMATOLOGY OR [...] CDT Narrative Resulting Agency Comment [facility] [address] ??[facility] [phone] Isidro Heredia MD LAB - CHEMISTRY ORD [...] CDT Narrative Resulting Agency Comment [facility] [address] ??[facility] [phone] Isidro Heredia MD LAB - HEMATOLOGY OR DERABLES [facility] ACCOUNT BILL documented in this encounter Visit Diagnoses Diagnosis Rheumatoid arthritis(714.0) (HCC)- Primary Rheumatoid arthritis documented in this encounter Care Teams Owner Operator Relationship Specialty Start Date End Date Nolberto Nicole MD PCP - General 07/21/08 12/30/13 Isidro Heredia MD Rheumatology 02/09/11 documented as of this encounter
--- OUTSIDE RECORDS SUMMARY | 2024-05-10 10:28 | XMS_ITS | Encounter Summary ---
Author Organization [facility] Address [address] [facility] [place] [address] Care Team Providers Care Fuels Engineer Name Role Phone Nolberto Nicole MD Primary Care Provider [phone] Isidro Heredia MD Unavailable Reason for Visit * Reason Comments Rheumatoid Arthritis Pain Knee left Pain Hand rt with some swellin g * Evaluate & Treat (Routine) - Closed Specialty Diagnoses / Procedures Referred By Lawrence shah Referred To Contact Diagnoses Rheumatoid arthritis(714.0) (HCC) Procedures OR OFFICE VISIT DURING HOURS Nolberto Nicole MD [address] [place] [address] Isidro Heredia MD [address] [place] [address] Referral ID Status Reason Start Date Expiration Date Visits Re quested Visits Authorized [id number] Closed 08/15/2012 02/11/2013 1 5 Encounter Details Date Type Department Care Team (Late st Contact Info) Description 01/09/2013 3:00 PM CDT Office Visit [facility] - Rheumatology [address] [place] [address] Isidro Heredia MD [address] [place] [address] Rheumatoid arthritis (HCC) (Primary Dx); [...] Active Take by mouth once daily. ??? Coxfnfzufms-Snitsigsf-Hny C-Mn (GLUCOSAMINE CHONDR 1500 COMPLX PO) Active [...] st Contact Info) Description 06/03/2024 1:00 PM MAILROOM ASSOCIATE Appointment [facility] - Rheumatology [address] [place] [address] 06/03/2024 2:00 PM MAILROOM ASSOCIATE Office Visit [facility] - Rheumatology [address] [place] [address] Gloria Smith MD [address] [place] [phone] documented as of this encounter Visit Diagnoses Diagnosis Rheumatoid arthritis(714.0) (HCC)- Primary Rheumatoid arthritis Chronic pain syndrome documented in this encounter Care Teams Fuels Engineer Relationship Specialty Start Date End Date Nolberto Nicole MD PCP - General 07/21/08 12/30/13 Isidro Heredia MD Rheumatology 02/09/11 documented as of this encounter
--- OUTSIDE RECORDS SUMMARY | 2024-05-10 10:29 | XMS_ITS | Encounter Summary ---
Author Organization [facility] Address [address] [facility] [place] [address] Care Team Providers Care Medical Doctor Nuclear Medicine Name Role Phone Nolberto Nicole MD Primary Care Provider Isidro Heredia MD Unavailable Reason for Visit * Reason Comments Follow-up ra Pain Arm difficult to lift le ft arm. very sore. Swelling Hand obdulia Pain Knee obdulia Fatigue Pain Wrist obdulia Encounter Details Date Type Department Care Team (Late st Contact Info) Description 09/04/2011 4:30 PM CDT Office Visit [facility] - Rheumatology [address] [place] [address] Isidro Heredia MD [address] [place] [address] Rheumatoid arthritis (HCC) (Primary Dx); Triceps [...] Body Mass Index 34.72 05/15/2011 5:19 PM GLUE REEL OPERATOR documented in this encounter Progress Notes [...] PO) Take by mouth once daily. ??? Uslaepaazfj-Saegafkxq-Ncn C-Mn (GLUCOSAMINE CHONDR 1500 COMPLX PO) Take [...] st Contact Info) Description 06/03/2024 1:00 PM GLUE REEL OPERATOR Appointment [facility] - Rheumatology [address] [place] [address] 06/03/2024 2:00 PM GLUE REEL OPERATOR Office Visit [facility] - Rheumatology [address] [place] [address] Gloria Smith MD [address] [place] [phone] documented as of this encounter Procedures [...] PM CDT Narrative Resulting Agency Comment [facility] [place] [address] [facility] [phone] Isidro Heredia MD LAB - HEMATOLOGY OR DERABLES [facility] ACCOUNT BILL * (ABNORMAL) C-REACTIVE PROTEIN (09/04/2011 5:14 PM CDT) C-Reactive Protein 5.2(H) 0.0 - 4.9 mg/L [facility] ACCOUNT BILL Blood specimen (specimen) BLOOD SPECIMEN / Unknown 09/04/2011 5:14 PM CDT 09/04/2011 9:51 PM CDT Narrative Resulting Agency Comment [facility] [place] [address] [facility] [phone] Isidro Heredia MD LAB - CHEMISTRY ORD [...] PM CDT Narrative Resulting Agency Comment [facility] [place] [address] [facility] ??[facility] [phone] Isidro Heredia MD LAB - CHEMISTRY ORD [...] PM CDT Narrative Resulting Agency Comment [facility] [place] [address] [facility] ??[facility] [phone] Isidro Heredia MD LAB - HEMATOLOGY OR DERABLES [facility] ACCOUNT BILL documented in this encounter Visit Diagnoses Diagnosis Rheumatoid arthritis(714.0) ([facility])- Primary Rheumatoid arthritis Triceps tendonitis Other enthesopathy of elbow region Subacromial bursitis Other specified disorders of rotator cuff syndrome of shoulder and allied disorders documented in this encounter Care Teams Medical Doctor Nuclear Medicine Relationship Specialty Start Date End Date Nolberto Nicole MD PCP - General 07/21/08 12/30/13 Isidro Heredia MD Rheumatology 02/09/11 documented as of this encounter
--- OUTSIDE RECORDS SUMMARY | 2024-05-10 10:29 | XMS_ITS | Encounter Summary ---
Author Organization [facility] Address [address] [facility] [place] [address] Care Team Providers Care Academic Department Chair Name Role Phone Nolberto Nicole MD Primary Care Provider [phone] Reason for Visit * Reason Comments Shoulder Pain left. rt hurt little General pt has stopped the h umira injection due to fungal infection x 4 months. Pain Joint Pain Side rt. very tender to t ouch Encounter Details Date Type Department Care Team (Late st Contact Info) Description 06/27/2010 4:00 PM EDGE CUTTER Office Visit [facility] - Rheumatology [address] [place] [address] Isidro Heredia MD [address] [place] [address] [phone] Rheumatoid arthritis (HCC) (Primary Dx); Fungus infection [...] Comments Blood Pressure 140/86 06/27/2010 4:21 PM EDGE CUTTER Pulse 96 06/27/2010 4:21 PM EDGE CUTTER Temperature - - Respiratory Rate - - Oxygen Saturation - - Inhaled Oxygen Concentration - - Weight 112 kg (247 lb) 06/27/2010 4:21 PM EDGE CUTTER Height - - Body Mass Index 35.44 02/08/2009 5:43 PM CDT documented in this encounter Progress Notes * Yamileth Rodríguez MA - 07/02/2010 3:42 PM CSTQuick Note: Letter mailed to patient regarding lab results. CUTTER * Isidro Heredia MD - 07/02/2010 7:09 AM CSTQuick Note: mtx ok Wbc Sl inc due to recent infection CUTTER * Isidro Heredia MD - 06/27/2010 5:00 [...] Follow up in office in 4 weeks CUTTER * Rea Hagan MA - 06/27/2010 4:21 PM CST Chief Complaint Patient presents with ??? Shoulder Pain left. rt hurt little ??? General pt has stopped the humira injection due to fungal infection x 4 months. ??? Pain Joint ??? Pain Side rt. very tender to touch BP 140/86 Pulse 96 Wt 247 lb (112.038 kg) CUTTER documented in this encounter Plan of Treatment Upcoming Encounters Date Type Department Care Team (Late st Contact Info) Description 06/03/2024 1:00 PM EDGE CUTTER Appointment [facility] - Rheumatology [address] [place] [address] 06/03/2024 2:00 PM EDGE CUTTER Office Visit [facility] - Rheumatology [address] [place] [address] Gloria Smith MD [address] [place] [phone] documented as of this encounter Procedures Procedure Name Priority Date/Time Associated Diagnosis Comments ERYTHROCYTE SEDIMENTATION RATE Routine 06/27/2010 4:46 PM EDGE CUTTER Rheumatoid arthritis (HCC) CBC W AUTO DIFFERENTIAL Routine 06/27/2010 4:46 PM EDGE CUTTER Rheumatoid arthritis (HCC) C-REACTIVE PROTEIN Routine 06/27/2010 4: 45 PM EDGE CUTTER Rheumatoid arthritis (HCC) COMPREHENSIVE METABOLIC PANEL Routine 06/27/2010 4:45 PM EDGE CUTTER Rheumatoid arthritis (HCC) documented in this encounter Results * (ABNORMAL) SED RATE WESTERGREN AUTO (06/27/2010 4:46 PM EDGE CUTTER) Erythrocyte Sedimentation Rate Westergren 22(H) 0 - 15 mm/hr [facility] ACCOUNT BILL BLOOD SPECIMEN / Unknown 06/27/2010 4:46 PM EDGE CUTTER 06/27/2010 10:21 PM EDGE CUTTER Narrative Resulting Agency Comment [facility] [address] ??[facility] [phone] Isidro Heredia MD LAB - HEMATOLOGY OR DERABLES [facility] ACCOUNT BILL * (ABNORMAL) CBC W AUTO DIFFERENTIAL (06/27/2010 4:46 PM EDGE CUTTER) WBC 13.3(H) 4.0 - 10.5 x10E3/uL [facility] [...] BLOOD SPECIMEN / Unknown 06/27/2010 4:46 PM EDGE CUTTER 06/27/2010 10:21 PM EDGE CUTTER Narrative Resulting Agency Comment [facility] [address] ??[facility] [phone] Isidro Heredia MD LAB - HEMATOLOGY OR DERABLES Performing Organization Address [facility] de Phone Number [facility] ACCOUNT BILL * (ABNORMAL) C-REACTIVE PROTEIN (06/27/2010 4:45 PM EDGE CUTTER) C-Reactive Protein 5.8(H) 0.0 - 4.9 mg/L [facility] ACCOUNT BILL BLOOD SPECIMEN / Unknown 06/27/2010 4:45 PM EDGE CUTTER 06/27/2010 9:16 PM EDGE CUTTER Narrative Resulting Agency Comment [facility] [address] ??[facility] [phone] Isidro Heredia MD LAB - CHEMISTRY ORD ERABLES Performing Organization Address City/[facility]/ZIP Co de Phone Number [facility] ACCOUNT BILL * (ABNORMAL) COMPREHENSIVE METABOLIC PANEL (06/27/2010 4:45 PM EDGE CUTTER) Glucose 85 65 - 99 mg/dL [facility] [...] BLOOD SPECIMEN / Unknown 06/27/2010 4:45 PM EDGE CUTTER 06/27/2010 9:16 PM EDGE CUTTER Narrative Resulting Agency Comment [facility] [address] ??[facility] [phone] Isidro Heredia MD LAB - CHEMISTRY ORD ERABLES [facility] ACCOUNT BILL documented in this encounter Visit Diagnoses Diagnosis Rheumatoid arthritis(714.0) (HCC)- Primary Rheumatoid arthritis Fungus infection Other and unspecified mycoses documented in this encounter Care Teams Academic Department Chair Relationship Specialty Start Date End Date Nolberto Nicole MD PCP - General 07/21/08 12/30/13 documented as of this encounter
--- OUTSIDE RECORDS SUMMARY | 2024-05-10 10:29 | XMS_ITS | Encounter Summary ---
Author Organization [facility] Address [address] [place] [address] [place] [address] Care Team Providers Care Human Resources Psychologist Name Role Phone Nolberto Nicole MD Primary Care Provider [phone] Reason for Visit * Reason Comments Follow-up ra Encounter Details Date Type Department Care Team (Late st Contact Info) Description 04/05/2009 3:00 PM SUPERVISOR ROUGH END Office Visit [facility] - Rheumatology [address] [place] [address] [phone] Isidro Heredia MD [address] [place] [address] Rheumatoid Arthritis (HCC) (Primary Dx) Social History [...] Comments Blood Pressure 130/74 04/05/2009 3:07 PM SUPERVISOR ROUGH END Pulse 84 04/05/2009 3:07 PM SUPERVISOR ROUGH END Temperature - - Respiratory Rate - - Oxygen Saturation - - Inhaled Oxygen Concentration - - Weight 107.5 kg (237 lb) 04/05/2009 3:07 PM SUPERVISOR ROUGH END Height - - Body Mass Index 34.01 02/08/2009 5:43 PM CDT documented in this encounter Progress Notes * Rea Hagan MA - 04/13/2009 1:04 PM CSTQuick Note: Sent letter RVISOR ROUGH END * Isidro Heredia MD - 04/11/2009 6:52 PM CSTQurolando Note: Mtx ok RVISOR ROUGH END * Isidro Heredia MD - 04/05/2009 3:37 [...] up in office in 4 weeks RVISOR ROUGH END * Rea Hagan MA - 04/05/2009 3:09 PM CST Chief Complaint Patient presents with ??? Follow-up ra BP 130/74 Pulse 84 Wt 107.502 kg (237 lb) RVISOR ROUGH END documented in this encounter Plan of Treatment Upcoming Encounters Date Type Department Care Team (Late st Contact Info) Description 06/03/2024 1:00 PM SUPERVISOR ROUGH END Appointment [facility] - Rheumatology [address] [place] [address] 06/03/2024 2:00 PM SUPERVISOR ROUGH END Office Visit [facility] - Rheumatology [address] [place] [address] [phone] Gloria Smith MD [address] [place] [phone] documented as of this encounter Procedures Procedure Name Priority Date/Time Associated Diagnosis Comments RHEUMATOID FACTOR BLOOD QUANTITATIVE Routine 04/05/2009 3:13 PM SUPERVISOR ROUGH END Rheumatoid Arthritis (HCC) C-REACTIVE PROTEIN Routine 04/05/2009 3: 13 PM SUPERVISOR ROUGH END Rheumatoid Arthritis (HCC) CBC W AUTO DIFFERENTIAL Routine 04/05/2009 3:13 PM SUPERVISOR ROUGH END Rheumatoid Arthritis (HCC) COMPREHENSIVE METABOLIC PANEL Routine 04/05/2009 3:13 PM SUPERVISOR ROUGH END Rheumatoid Arthritis (HCC) documented in this encounter Results * RHEUMATOID FACTOR BLOOD QUANTITATIVE (04/05/2009 3:13 PM SUPERVISOR ROUGH END) Rheumatoid Factor 8.0 0.0 - 13.9 IU/mL [facility] ACCOUNT BILL BLOOD SPECIMEN / Unknown 04/05/2009 3:13 PM SUPERVISOR ROUGH END 04/05/2009 10:32 PM SUPERVISOR ROUGH END Narrative Resulting Agency Comment [facility] [address] [facility] ??[facility] [phone] Isidro Heredia MD LAB - CHEMISTRY ORD ERABLES [facility] ACCOUNT BILL * C-REACTIVE PROTEIN (04/05/2009 3:13 PM SUPERVISOR ROUGH END) C-Reactive Protein 3.6 0.0 - 4.9 mg/L [facility] ACCOUNT BILL BLOOD SPECIMEN / Unknown 04/05/2009 3:13 PM SUPERVISOR ROUGH END 04/05/2009 10:32 PM SUPERVISOR ROUGH END Narrative Resulting Agency Comment [facility] [phone] [facility] ??[facility] [phone] Isidro Heredia MD LAB - CHEMISTRY ORD ERABLES [facility] ACCOUNT BILL * COMPREHENSIVE METABOLIC PANEL (04/05/2009 3:13 PM SUPERVISOR ROUGH END) Glucose 93 65 - 99 mg/dL [facility] [...] BLOOD SPECIMEN / Unknown 04/05/2009 3:13 PM SUPERVISOR ROUGH END 04/05/2009 10:32 PM SUPERVISOR ROUGH END Narrative Resulting Agency Comment [facility] [place] [phone] [facility] ??[facility] [phone] Isidro Heredia MD LAB - CHEMISTRY ORD ERABLES [facility] ACCOUNT BILL * CBC W AUTO DIFFERENTIAL (04/05/2009 3:13 PM SUPERVISOR ROUGH END) WBC 8.6 4.0 - 10.5 x10E3/uL [facility] [...] BLOOD SPECIMEN / Unknown 04/05/2009 3:13 PM SUPERVISOR ROUGH END 04/05/2009 10:32 PM SUPERVISOR ROUGH END Narrative [facility] ACCOUNT BILL - 04/06/2009 8:31 AM SUPERVISOR ROUGH END Additional Result Information HEMATOLOGY COMMENTS: ??BLOOD,URINE ([facility]): RESULT NOT AVAILABLE Resulting Agency Comment [facility] [address] ??[facility] [phone] Isidro Heredia MD LAB - HEMATOLOGY OR DERABLES Performing Organization Address City/State/[facility] Co de Phone Number [facility] ACCOUNT BILL documented in this encounter Visit Diagnoses Diagnosis Rheumatoid arthritis(714.0) ([facility])- Primary Rheumatoid arthritis documented in this encounter Care Teams Human Resources Psychologist Relationship Specialty Start Date End Date Nolberto Nicole MD PCP - General 07/21/08 12/30/13 documented as of this encounter
--- OUTSIDE RECORDS SUMMARY | 2024-05-10 10:29 | XMS_ITS | Encounter Summary ---
Author Organization [facility] Address [address] [facility] [place] [address] Care Team Providers Care Diesel Mechanic Helper Name Role Phone Nolberto Nicole MD Primary Care Provider [phone] Isidro Heredia MD Unavailable [phone] Reason for Visit * Reason Comments Follow-up ra Encounter Details Date Type Department Care Team (Late st Contact Info) Description 11/06/2011 5:30 PM CDT Office Visit [facility] - Rheumatology [address] [place] [address] Isidro Heredia MD [address] [place] [address] Rheumatoid arthritis (HCC) (Primary Dx); Triceps [...] Body Mass Index 35.33 05/15/2011 5:19 PM PAPIER MACHE' MOLDER documented in this encounter Progress Notes * [...] PO) Take by mouth once daily. ??? Xyegahoxuru-Qtagfmjjf-Fji C-Mn (GLUCOSAMINE CHONDR 1500 COMPLX PO) Take [...] st Contact Info) Description 06/03/2024 1:00 PM PAPIER MACHE' MOLDER Appointment [facility] - Rheumatology [address] [place] [address] 06/03/2024 2:00 PM PAPIER MACHE' MOLDER Office Visit [facility] - Rheumatology [address] [place] [address] Gloria Smith MD [address] [place] [phone] documented as of this encounter Procedures Procedure Name Priority Date/Time Associated Diagnosis Comments C-REACTIVE PROTEIN Routine 11/06/2011 6: 21 PM CDT Rheumatoid arthritis (HCC) ERYTHROCYTE SEDIMENTATION RATE Routine 11/06/2011 6:21 PM CDT Rheumatoid arthritis (HCC) CBC W AUTO DIFFERENTIAL Routine 11/06/2011 6:21 PM CDT Rheumatoid arthritis ([facility]) COMPREHENSIVE METABOLIC PANEL Routine 11/06/2011 6:21 [...] PM CDT Narrative Resulting Agency Comment [facility] [address] ??[facility] [phone] Isidro Heredia MD LAB - HEMATOLOGY OR DERABLES Performing Organization Address [facility] de Phone Number [facility] ACCOUNT BILL * C-REACTIVE PROTEIN (11/06/2011 6:21 PM CDT) Pathologist [facility] C-Reactive Protein 2.0 0.0 - 4.9 mg/L [facility] ACCOUNT BILL Blood specimen (specimen) BLOOD SPECIMEN / Unknown 11/06/2011 6:21 PM CDT 11/06/2011 9:53 PM CDT Narrative Resulting Agency Comment [facility] [place] [address] [facility] ??[facility] [phone] Isidro Heredia MD LAB - CHEMISTRY ORD ERABLES Performing Organization Address City/[facility]/ZIP Co de Phone Number [facility] ACCOUNT [...] PM CDT Narrative Resulting Agency Comment [facility] [address] ??[facility] [phone] Isidro Heredia MD LAB - CHEMISTRY ORD ERABLES [facility] ACCOUNT BILL * (ABNORMAL) SED RATE WESTERGREN (11/06/2011 6:21 PM CDT) Erythrocyte Sedimentation Rate Westergren 24(H) 0 - 15 mm/hr [facility] ACCOUNT BILL Blood specimen (specimen) BLOOD SPECIMEN / Unknown 11/06/2011 6:21 PM CDT 11/06/2011 9:53 PM CDT Narrative Resulting Agency Comment [facility] [address] [facility] ??[facility] [phone] Isidro Heredia MD LAB - HEMATOLOGY OR DERABLES [facility] ACCOUNT BILL documented in this encounter Visit Diagnoses Diagnosis Rheumatoid arthritis(714.0) ([facility])- Primary Rheumatoid arthritis Triceps tendonitis Other enthesopathy of elbow region documented in this encounter Care Teams Diesel Mechanic Helper Relationship Specialty Start Date End Date Nolberto Nicole MD PCP - General 07/21/08 12/30/13 Isidro Heredia MD Rheumatology 02/09/11 documented as of this encounter
--- OUTSIDE RECORDS SUMMARY | 2024-05-10 10:29 | XMS_ITS | Encounter Summary ---
Author Organization [facility] Address [address] [place] [address] Care Team Providers Care Janitor And Cleaner Name Role Phone Nolberto Nicole MD Primary Care Provider [phone] Encounter Details Date Type Department Care Team (Late Contact Info) Description 07/05/2009 Orders Only [facility] - Rheumatology [address] [place] [address] Isidro Heredia MD [address] [place] [address] Social History Tobacco Use Types Packs/Day [...] Contact Info) Description 06/03/2024 1:00 PM MANAGER COMPLETIONS Appointment [facility] - Rheumatology [address] [place] [address] 06/03/2024 2:00 PM MANAGER COMPLETIONS Office Visit [facility] - Rheumatology [address] [place] [address] Gloria Smith MD [address] [place] [phone] documented as of this encounter Procedures Procedure Name Priority Date/Time Associated Diagnosis Comments ERYTHROCYTE SEDIMENTATION RATE 07/05/2009 6:00 PM MANAGER COMPLETIONS documented in this encounter Results * SED RATE WESTERGREN AUTO (07/05/2009 6:00 PM MANAGER COMPLETIONS) Erythrocyte Sedimentation Rate Westergren 15 0 - 15 mm/hr [facility] ACCOUNT BILL 07/05/2009 6:00 PM MANAGER COMPLETIONS 07/05/2009 10:21 PM MANAGER COMPLETIONS Narrative Resulting Agency Comment [facility] [place] [id number] [facility] ??[facility] [phone] Isidro Heredia MD LAB - HEMATOLOGY OR DERABLES [facility] ACCOUNT BILL documented in this encounter Visit Diagnoses Not on filedocumented in this encounter Care Teams Janitor And Cleaner Relationship Specialty Start Date End Date Nolberto Nicole MD PCP - General 07/21/08 12/30/13 documented as of this encounter
--- OUTSIDE RECORDS SUMMARY | 2024-05-10 10:29 | XMS_ITS | Encounter Summary ---
Author Organization [facility] Address [address] [facility] [place] [address] Care Team Providers Care Blunger Loader Name Role Phone Nolberto Nicole MD [...] shah Referred To Contact Diagnoses Rheumatoid arthritis(714.0) ([facility]) Procedures [place] OFFICE VISIT DURING HOURS Nolberto Nicole MD [address] [place] [address] Isidro Heredia MD [address] [place] [address] Referral ID Status Reason Start Date Expiration Date Visits Re quested Visits Authorized [id number] Closed 02/20/2012 08/18/2012 1 5 Encounter Details Date Type Department Care Team (Late st Contact Info) Description 04/08/2012 5:00 PM GEOTECHNICIAN Office Visit [facility] - Rheumatology [address] [place] [address] Isidro Heredia MD [address] [place] [address] Rheumatoid arthritis (HCC) (Primary Dx); Chronic pain [...] Comments Blood Pressure 110/80 04/08/2012 5:48 PM GEOTECHNICIAN Pulse 104 04/08/2012 5:48 PM GEOTECHNICIAN Temperature - - Respiratory Rate - - Oxygen Saturation - - Inhaled Oxygen Concentration - - Weight 114.5 kg (252 lb 6.4 oz) 04/08/2012 5:48 PM GEOTECHNICIAN Height - - Body Mass Index 36.22 05/15/2011 5:19 PM GEOTECHNICIAN documented in this encounter Progress Notes * Rea Hagan MA - 04/17/2012 2:11 PM CSTQuick Note: Sent lab letter to pt ECHNICIAN * Isidro Heredia MD - 04/14/2012 8:28 PM CSTQuick Note: mtx ok ECHNICIAN * Isidro Heredia MD - 04/08/2012 6:04 [...] PO) Take by mouth once daily. ??? Ebivglrzndn-Btikgkwwm-Vcz C-Mn (GLUCOSAMINE CHONDR 1500 COMPLX PO) Take [...] Follow up in office in 4 weeks ECHNICIAN * Rea Hagan MA - 04/08/2012 5:50 PM CST Chief Complaint Patient presents with ??? Rheumatoid Arthritis new sx: racey heart, sob few times since the last visit. last episode on 03/31/12 ??? Upper Extremity Problem hands,shoulder ??? Lower Extremity Problem ankles, knees, hips ??? Swelling Hand obdulia BP 110/80 Pulse 104 Wt 252 lb 6.4 oz (114.488 kg) ECHNICIAN documented in this encounter Plan of Treatment Upcoming Encounters Date Type Department Care Team (Late st Contact Info) Description 06/03/2024 1:00 PM GEOTECHNICIAN Appointment [facility] - Rheumatology [address] [place] [address] 06/03/2024 2:00 PM GEOTECHNICIAN Office Visit [facility] - Rheumatology [address] [place] [address] [phone] Gloria Smith MD [address] [place] [phone] documented as of this encounter Procedures Procedure Name Priority Date/Time Associated Diagnosis Comments C-REACTIVE PROTEIN Routine 04/08/2012 6: 32 PM GEOTECHNICIAN Rheumatoid arthritis (HCC) ERYTHROCYTE SEDIMENTATION RATE Routine 04/08/2012 6:32 PM GEOTECHNICIAN Rheumatoid arthritis (HCC) CBC W AUTO DIFFERENTIAL Routine 04/08/2012 6:32 PM GEOTECHNICIAN Rheumatoid arthritis (HCC) COMPREHENSIVE METABOLIC PANEL Routine 04/08/2012 6:32 PM GEOTECHNICIAN Rheumatoid arthritis (HCC) documented in this encounter Results * SED RATE WESTERGREN (04/08/2012 6:32 PM GEOTECHNICIAN) Erythrocyte Sedimentation Rate Westergren 12 0 - 15 mm/hr [facility] ACCOUNT BILL Blood specimen (specimen) BLOOD SPECIMEN / Unknown 04/08/2012 6:32 PM GEOTECHNICIAN 04/08/2012 9:50 PM GEOTECHNICIAN Narrative Resulting Agency Comment [facility] ??[facility] access hospital [phone] Isidro Heredia MD LAB - HEMATOLOGY OR DERABLES Performing Organization Address City/[facility] Co de Phone Number [facility] ACCOUNT BILL * (ABNORMAL) C-REACTIVE PROTEIN (04/08/2012 6:32 PM GEOTECHNICIAN) C-Reactive Protein 8.6(H) 0.0 - 4.9 mg/L [facility] ACCOUNT BILL Blood specimen (specimen) BLOOD SPECIMEN / Unknown 04/08/2012 6:32 PM GEOTECHNICIAN 04/08/2012 9:50 PM GEOTECHNICIAN Narrative Resulting Agency Comment [facility] ??Critical access hospital [phone] Isidro Heredia MD LAB - CHEMISTRY ORD ERABLES Performing Organization Address [facility] Co de Phone Number [facility] ACCOUNT BILL * (ABNORMAL) COMPREHENSIVE METABOLIC PANEL (04/08/2012 6:32 PM GEOTECHNICIAN) Glucose 106(H) 65 - 99 mg/dL [facility] [...] BLOOD SPECIMEN / Unknown 04/08/2012 6:32 PM GEOTECHNICIAN 04/08/2012 9:50 PM GEOTECHNICIAN Narrative Resulting Agency Comment [facility] [address] ??[facility] access hospital [phone] Isidro Heredia MD LAB - CHEMISTRY ORD ERABLES [facility] ACCOUNT BILL * CBC W AUTO DIFFERENTIAL (04/08/2012 6:32 PM GEOTECHNICIAN) WBC 8.1 4.0 - 10.5 x10E3/uL [facility] [...] BLOOD SPECIMEN / Unknown 04/08/2012 6:32 PM GEOTECHNICIAN 04/08/2012 9:50 PM GEOTECHNICIAN Narrative Resulting Agency Comment [facility] [address] ??Critical access hospital [phone] Isidro Heredia MD LAB - HEMATOLOGY OR DERABLES [facility] ACCOUNT BILL documented in this encounter Visit Diagnoses Diagnosis Rheumatoid arthritis(714.0) (HCC)- Primary Rheumatoid arthritis Chronic pain syndrome Palpitations documented in this encounter Care Teams Blunger Loader Relationship Specialty Start Date End Date Nolberto Nicole MD PCP - General 07/21/08 12/30/13 Isidro Heredia MD Rheumatology 02/09/11 documented as of this encounter
--- OUTSIDE RECORDS SUMMARY | 2024-05-10 10:29 | XMS_ITS | Encounter Summary ---
Author Organization [facility] Address [address] [facility] [place] [address] Care Team Providers Care Assistant Kitchen Manager Name Role Phone Nolberto Nicole MD Primary Care Provider [phone] Reason for Visit * Reason Comments Shoulder Pain left Pain Scale: 9/1 0 Pain Knee Swelling fingers. and sore General Pain Scale: 7/10 Encounter Details Date Type Department Care Team (Late st Contact Info) Description 07/25/2010 4:45 PM CDT Office Visit [facility] - Rheumatology [address] [place] [address] Isidro Heredia MD [address] [place] [address] Rheumatoid arthritis (HCC) (Primary Dx); Osteopenia; [...] Contact Info) Description 06/03/2024 1:00 PM UTILITY AIDE Appointment [facility] - Rheumatology [address] [place] [address] [phone] 06/03/2024 2:00 PM UTILITY AIDE Office Visit [facility] - Rheumatology [address] [place] [address] [phone] Gloria Smith MD [address] [place] [phone] documented as of this encounter Procedures Procedure [...] 9:35 PM CDT Narrative Resulting Agency Comment [facility] ??Critical access hospital [phone] Isidro Heredia MD LAB - HEMATOLOGY OR DERABLES Performing Organization Address City/[facility]/ZIP Co de Phone Number [facility] ACCOUNT BILL * C-REACTIVE PROTEIN (07/25/2010 5:28 PM CDT) C-Reactive Protein 2.4 0.0 - 4.9 mg/L [facility] ACCOUNT BILL BLOOD SPECIMEN / Unknown 07/25/2010 5:28 PM CDT 07/25/2010 9:35 PM CDT Narrative Resulting Agency Comment [facility] [id number] [facility] ??Critical access hospital [id number] Isidro Heredia MD LAB - CHEMISTRY ORD ERABLES Performing Organization Address City/[facility]/ZIP Co de Phone Number [facility] ACCOUNT [...] PM CDT Narrative Resulting Agency Comment [facility] [place] [address] [facility] ??Critical access hospital [phone] Isidro Heredia MD LAB - CHEMISTRY ORD [...] CDT Narrative Resulting Agency Comment [facility] [address] ??Critical access hospital [phone] Isidro Heredia MD LAB - HEMATOLOGY OR DERABLES [facility] ACCOUNT BILL documented in this encounter Visit Diagnoses Diagnosis Rheumatoid arthritis(714.0) (HCC)- Primary Rheumatoid arthritis Osteopenia Disorder of bone and cartilage, unspecified Subacromial bursitis Other specified disorders of rotator cuff syndrome of shoulder and allied disorders documented in this encounter Care Teams Assistant Kitchen Manager Relationship Specialty Start Date End Date Nolberto Nicole MD PCP - General 07/21/08 12/30/13 documented as of this encounter
--- OUTSIDE RECORDS SUMMARY | 2024-05-10 10:29 | XMS_ITS | Encounter Summary ---
Author Organization [facility] Address [address] [facility] [place] [address] Care Team Providers Care Assisted Living Nursing Director Name Role Phone Nolberto Nicole MD Primary Care Provider [phone] Isidro Heredia MD Unavailable [phone] Reason for Visit * Reason Comments Follow-up RA Pain Hand swollen with pain Pa in Scale: 12/07 Stress lost father Encounter Details Date Type Department Care Team (Late st Contact Info) Description 02/12/2012 5:30 PM CDT Office Visit [facility] Medical [facility] - Rheumatology [address] [place] [address] Isidro Heredia MD [address] [place] [address] Rheumatoid arthritis (HCC) (Primary Dx); Triceps [...] Body Mass Index 35.58 05/15/2011 5:19 PM DANCE TEACHER documented in this encounter Progress Notes * [...] PO) Take by mouth once daily. ??? Jippyazjqwr-Ngtxlysqz-Bdh C-Mn (GLUCOSAMINE CHONDR 1500 COMPLX PO) Take [...] st Contact Info) Description 06/03/2024 1:00 PM DANCE TEACHER Appointment [facility] - Rheumatology [address] [place] [address] 06/03/2024 2:00 PM DANCE TEACHER Office Visit [facility] - Rheumatology [address] [place] [address] [phone] Gloria Smith MD [address] [place] [phone] documented as of this encounter Procedures Procedure [...] PM CDT Narrative Resulting Agency Comment [facility] [place] [address] [facility] ??[facility] [phone] Isidro Heredia MD LAB - HEMATOLOGY OR DERABLES [facility] ACCOUNT BILL * (ABNORMAL) C-REACTIVE PROTEIN (02/13/2012 8:47 AM CDT) C-Reactive Protein 5.4(H) 0.0 - 4.9 mg/L [facility] ACCOUNT BILL Blood specimen (specimen) BLOOD SPECIMEN / Unknown 02/13/2012 8:47 AM CDT 02/13/2012 6:02 PM CDT Narrative Resulting Agency Comment [facility] [place] [address] [place] [address] ??[facility] [phone] Isidro Heredia MD LAB - CHEMISTRY ORD [...] PM CDT Narrative Resulting Agency Comment [facility] [address] ??[facility] [phone] Isidro Heredia MD LAB - CHEMISTRY ORD [...] PM CDT Narrative Resulting Agency Comment [facility] [address] ??[facility] [phone] Isidro Heredia MD LAB - HEMATOLOGY OR DERABLES [facility] ACCOUNT BILL documented in this encounter Visit Diagnoses Diagnosis Rheumatoid arthritis(714.0) (HCC)- Primary Rheumatoid arthritis Triceps tendonitis Other enthesopathy of elbow region Chronic pain syndrome documented in this encounter Care Teams Assisted Living Nursing Director Relationship Specialty Start Date End Date Nolberto Nicole MD PCP - General 07/21/08 12/30/13 Isidro Heredia MD Rheumatology 02/09/11 documented as of this encounter
--- OUTSIDE RECORDS SUMMARY | 2024-05-10 10:29 | XMS_ITS | Encounter Summary ---
Author Organization [facility] Address [address] [facility] [place] [address] Care Team Providers Care Guest Request Runner Name Role Phone Nolberto Nicole MD Primary Care Provider Encounter Details Date Type Department Care Team (Late Contact Info) Description 08/02/2009 Orders Only [facility] - Rheumatology [address] [place] [address] [phone] Isidro Heredia MD [address] [place] [address] [phone] Social History Tobacco Use Types Packs/Day Years [...] Contact Info) Description 06/03/2024 1:00 PM QUALITY CONTROL TECH RAW MATERIALS Appointment [facility] - Rheumatology [address] [place] [address] 06/03/2024 2:00 PM QUALITY CONTROL TECH RAW MATERIALS Office Visit [facility] - Rheumatology [address] [place] [address] [phone] Gloria Smith MD [address] [place] [phone] documented as of this encounter Procedures [...] CDT Narrative Resulting Agency Comment [facility] [address] ??[facility] [phone] Isidro Heredia MD LAB - CHEMISTRY ORD [...] CDT Narrative Resulting Agency Comment [facility] [address] ??[facility] [phone] Isidro Heredia MD LAB - CHEMISTRY ORD [...] RESULT NOT AVAILABLE Resulting Agency Comment [facility] [address] ??[facility] [phone] Isidro Heredia MD LAB - HEMATOLOGY OR DERABLES [facility] ACCOUNT BILL documented in this encounter Visit Diagnoses Not on filedocumented in this encounter Care Teams Guest Request Runner Relationship Specialty Start Date End Date Nolberto Nicole MD PCP - General 07/21/08 12/30/13 documented as of this encounter
--- OUTSIDE RECORDS SUMMARY | 2024-05-10 10:29 | XMS_ITS | Encounter Summary ---
Author Organization [facility] Address [address] [place] [address] Care Team Providers Care Concert Manager Name Role Phone Nolberto Nicole MD Primary Care Provider [phone] Reason for Visit * Reason Comments Follow-up ra General pt has cloudy vision stop plaquenil. Fatigue Pain Muscle Encounter Details Date Type Department Care Team (Late st Contact Info) Description 08/02/2009 5:15 PM CDT Office Visit [facility] - Rheumatology [address] [place] [address] [phone] Isidro Heredia MD [address] [place] [address] Rheumatoid Arthritis (HCC) (Primary Dx); Osteopenia [...] st Contact Info) Description 06/03/2024 1:00 PM CAD CAM PROGRAMMER Appointment [facility] - Rheumatology [address] [place] [address] [phone] 06/03/2024 2:00 PM CAD CAM PROGRAMMER Office Visit [facility] - Rheumatology [address] [place] [address] [phone] Gloria Smith MD [address] [place] [phone] Scheduled Orders Name Type Priority Associated Diagnoses Orde r Schedule CBC W AUTO DIFFERENTIAL Lab Routine Rheumatoid Arthritis ([facility]) Ordered: 08/02/2009 COMPREHENSIVE METABOLIC PANEL Lab Routine Rheumatoid Arthritis ([facility]) Ordered: 08/02/2009 C-REACTIVE PROTEIN Lab Routine Rheumatoid Arthritis ([facility]) Ordered: 08/02/2009 documented as of this encounter Procedures Procedure Name Priority Date/Time Associated Diagnosis Comments ERYTHROCYTE SEDIMENTATION RATE Routine 08/02/2009 5:24 PM CDT Rheumatoid Arthritis ([facility]) documented in this encounter Results * SED RATE WESTERGREN AUTO (08/02/2009 5:24 PM CDT) Erythrocyte Sedimentation Rate Westergren 11 0 - 15 mm/hr [facility] ACCOUNT BILL BLOOD SPECIMEN / Unknown 08/02/2009 5:24 PM CDT 08/02/2009 9:21 PM CDT Narrative Resulting Agency Comment [facility] [address] ??[facility] [phone] Isidro Heredia MD LAB - HEMATOLOGY OR DERABLES [facility] ACCOUNT BILL documented in this encounter Visit Diagnoses Diagnosis Rheumatoid arthritis(714.0) (HCC)- Primary Rheumatoid arthritis Osteopenia Disorder of bone and cartilage, unspecified documented in this encounter Care Teams Concert Manager Relationship Specialty Start Date End Date Nolberto Nicole MD PCP - General 07/21/08 12/30/13 documented as of this encounter
--- OUTSIDE RECORDS SUMMARY | 2024-05-10 10:29 | XMS_ITS | Encounter Summary ---
Author Organization [facility] Address [address] [place] [address] [place] [address] Care Team Providers Care Book Salesman Name Role Phone Nolberto Nicole MD Primary Care Provider [phone] Reason for Visit * Reason Comments Follow-up ra Encounter Details Date Type Department Care Team (Late st Contact Info) Description 06/07/2009 5:15 PM FOOD MIXER Office Visit [facility] - Rheumatology [address] [place] [address] [phone] Isidro Heredia MD [address] [place], [place] [phone] Rheumatoid Arthritis (HCC) (Primary Dx) Social History [...] Comments Blood Pressure 126/76 06/07/2009 5:18 PM FOOD MIXER Pulse 80 06/07/2009 5:18 PM FOOD MIXER Temperature - - Respiratory Rate - - Oxygen Saturation - - Inhaled Oxygen Concentration - - Weight 109.8 kg (242 lb) 06/07/2009 5:18 PM FOOD MIXER Height - - Body Mass Index 34.72 02/08/2009 5:43 PM CDT documented in this encounter Progress Notes * Isidro Heredia MD - 07/07/2009 9:09 PM CSTQuick Note: Mtx ok MIXER * Isidro Heredia MD - 06/07/2009 5:58 [...] in office in 4 weeks Same meds MIXER * Rea Hagan MA - 06/07/2009 5:18 PM CST Chief Complaint Patient presents with ??? Follow-up ra BP 126/76 Pulse 80 Wt 109.77 kg (242 lb) MIXER documented in this encounter Miscellaneous Notes * Letter - Isidro Heredia MD - 08/13/2009 4:50 PM CDT June 07, 2009 RE: CHALINO CASEY : 1960 Nolberto Nicole MD [address] [place] [address] Nicole: This is a 48-year-old [...] Electronically Signed 08/13/2009 16:36:42 CDT DSR/MedQ #: [id number] documented in this encounter Plan of Treatment Upcoming Encounters Date Type Department Care Team (Late st Contact Info) Description 06/03/2024 1:00 PM FOOD MIXER Appointment [facility] Medical [facility] - Rheumatology [address] [place] [address] 06/03/2024 2:00 PM FOOD MIXER Office Visit [facility] Medical [facility] - Rheumatology [address] [place] [address] Gloria Smith MD [address] [place] [phone] Scheduled Orders Name Type Priority Associated Diagnoses Orde r Schedule SED RATE WESTERGREN AUTO Lab Routine Rheumatoid Arthritis (HCC) Ordered: 06/07/2009 documented as of this encounter Procedures Procedure Name Priority Date/Time Associated Diagnosis Comments C-REACTIVE PROTEIN Routine 07/05/2009 6: 00 PM FOOD MIXER Rheumatoid Arthritis (HCC) CBC W AUTO DIFFERENTIAL Routine 07/05/2009 6:00 PM FOOD MIXER Rheumatoid Arthritis (HCC) COMPREHENSIVE METABOLIC PANEL Routine 07/05/2009 6:00 PM FOOD MIXER Rheumatoid Arthritis (HCC) documented in this encounter Results * (ABNORMAL) C-REACTIVE PROTEIN (07/05/2009 6:00 PM FOOD MIXER) C-Reactive Protein 5.7(H) 0.0 - 4.9 mg/L [facility] ACCOUNT BILL BLOOD SPECIMEN / Unknown 07/05/2009 6:00 PM FOOD MIXER 07/05/2009 10:21 PM FOOD MIXER Narrative Resulting Agency Comment [facility] [address] ??[facility] [phone] Isidro Heredia MD LAB - CHEMISTRY ORD ERABLES [facility] ACCOUNT BILL * COMPREHENSIVE METABOLIC PANEL (07/05/2009 6:00 PM FOOD MIXER) Glucose 88 65 - 99 mg/dL [facility] [...] BLOOD SPECIMEN / Unknown 07/05/2009 6:00 PM FOOD MIXER 07/05/2009 10:21 PM FOOD MIXER Narrative Resulting Agency Comment [facility] [address] ??[facility] [phone] Isidro Heredia MD LAB - CHEMISTRY ORD ERABLES [facility] ACCOUNT BILL * (ABNORMAL) CBC W AUTO DIFFERENTIAL (07/05/2009 6:00 PM FOOD MIXER) WBC 11.2(H) 4.0 - 10.5 x10E3/uL [facility] [...] BLOOD SPECIMEN / Unknown 07/05/2009 6:00 PM FOOD MIXER 07/05/2009 10:21 PM FOOD MIXER Narrative [facility] ACCOUNT BILL - 07/06/2009 7:23 AM FOOD MIXER Additional Result Information IMMATURE CELLS ([facility]): RESULT NOT AVAILABLE IMMATURE GRANULOCYTES ([facility]): RESULT NOT AVAILABLE IMMATURE GRANS (ABS) ([facility]): RESULT NOT AVAILABLE NRBC ([facility]): RESULT NOT AVAILABLE HEMATOLOGY COMMENTS: ??BLOOD,URINE ([facility]): RESULT NOT AVAILABLE Resulting Agency Comment [facility] [address] ??[facility] [phone] Isidro Heredia MD LAB - HEMATOLOGY OR DERABLES [facility] ACCOUNT BILL documented in this encounter Visit Diagnoses Diagnosis Rheumatoid arthritis(714.0) (HCC)- Primary Rheumatoid arthritis documented in this encounter Care Teams Book Salesman Relationship Specialty Start Date End Date Nolberto Nicole MD PCP - General 07/21/08 12/30/13 documented as of this encounter
--- OUTSIDE RECORDS SUMMARY | 2024-05-10 10:29 | XMS_ITS | Encounter Summary ---
Author Organization [facility] Address [address] [place] [address] Care Team Providers Care Merry Go Round Operator Name Role Phone Nolberto Nicole MD Primary Care Provider [phone] Isidro Heredia MD Unavailable [phone] Reason for Visit * Reason Comments Follow-up RA. wants to discuss Humira and Actemera Toenail fungus. rt big toe Chest Pain * Consult, Test & Treat (Routine) - Closed Specialty Diagnoses / Procedures Referred By Contac t Referred To Contact Diagnoses Rheumatoid arthritis(714.0) ([facility]) Procedures [place] OFFICE VISIT DURING HOURS Nolberto Nicole MD [address] [place] [address] Isidro Heredia MD [address] [place] [address] Referral ID Status Reason Start Date Expiration Date Visits Re quested Visits Authorized [id number] Closed 01/06/2011 07/04/2011 1 5 Encounter Details Date Type Department Care Team (Late st Contact Info) Description 05/15/2011 5:15 PM MULTI TOWNSHIP ASSESSOR Office Visit [facility] [employer] [facility] - Rheumatology [address] [place] [address] Isidro Heredia MD [address] [facility] [address] Rheumatoid arthritis (HCC) (Primary Dx); [...] 111.1 kg (245 lb) 05/15/2011 5:19 PM MULTI TOWNSHIP ASSESSOR Height 177.8 cm (5' 10 ) 05/15/2011 5:19 PM MULTI TOWNSHIP ASSESSOR Body Mass Index 35.15 05/15/2011 5:19 PM MULTI TOWNSHIP ASSESSOR documented in this encounter Progress Notes * Rea Hagan MA - 05/23/2011 12:12 PM CSTQuick Note: Sent lab letter to pt I TOWNSHIP ASSESSOR * Isidro Heredia MD - 05/19/2011 7:38 PM CSTQuick Note: All labs ok Chol 191 I TOWNSHIP ASSESSOR * Isidro Heredia MD - 05/15/2011 5:47 [...] PO) Take by mouth once daily. ??? Pgmyagbhiwl-Njcoosjzk-Xrp C-Mn (GLUCOSAMINE CHONDR 1500 COMPLX PO) Take [...] 4 weeks Check on status of actemra I TOWNSHIP ASSESSOR documented in this encounter Plan of Treatment Upcoming Encounters Date Type Department Care Team (Late st Contact Info) Description 06/03/2024 1:00 PM MULTI TOWNSHIP ASSESSOR Appointment [facility] - Rheumatology [address] [place] [address] [phone] 06/03/2024 2:00 PM MULTI TOWNSHIP ASSESSOR Office Visit [facility] - Rheumatology [address] [place] [address] Gloria Smith MD [address] [place] [phone] documented as of this encounter Procedures Procedure Name Priority Date/Time Associated Diagnosis Comments LIPID PROFILE W LDL/HDL RATIO Routine 05/15/2011 6:06 PM MULTI TOWNSHIP ASSESSOR Hyperlipidemia C-REACTIVE PROTEIN Routine 05/15/2011 6: 06 PM MULTI TOWNSHIP ASSESSOR Rheumatoid arthritis (HCC) ERYTHROCYTE SEDIMENTATION RATE Routine 05/15/2011 6:06 PM MULTI TOWNSHIP ASSESSOR Rheumatoid arthritis (HCC) CBC W AUTO DIFFERENTIAL Routine 05/15/2011 6:06 PM MULTI TOWNSHIP ASSESSOR Rheumatoid arthritis (HCC) COMPREHENSIVE METABOLIC PANEL Routine 05/15/2011 6:06 PM MULTI TOWNSHIP ASSESSOR Rheumatoid arthritis (HCC) documented in this encounter Results * C-REACTIVE PROTEIN (05/15/2011 6:06 PM MULTI TOWNSHIP ASSESSOR) C-Reactive Protein 2.1 0.0 - 4.9 mg/L [facility] ACCOUNT BILL Blood specimen (specimen) BLOOD SPECIMEN / Unknown 05/15/2011 6:06 PM MULTI TOWNSHIP ASSESSOR 05/15/2011 9:47 PM MULTI TOWNSHIP ASSESSOR Narrative Resulting Agency Comment [facility] [address] ??[facility] [phone] Isidro Heredia MD LAB - CHEMISTRY ORD ERABLES [facility] ACCOUNT BILL * (ABNORMAL) LIPID PROFILE W LDL/HDL (PO REF LAB) (05/15/2011 6:06 PM MULTI TOWNSHIP ASSESSOR) Cholesterol 191 100 - 199 mg/dL [facility] [...] BLOOD SPECIMEN / Unknown 05/15/2011 6:06 PM MULTI TOWNSHIP ASSESSOR 05/15/2011 9:47 PM MULTI TOWNSHIP ASSESSOR Narrative Resulting Agency Comment [facility] [address] ??[facility] [phone] Isidro Heredia MD LAB - CHEMISTRY ORD ERABLES Performing Organization Address City/[facility]/ZIP Co de Phone Number [facility] ACCOUNT BILL * SED RATE WESTERGREN AUTO (05/15/2011 6:06 PM MULTI TOWNSHIP ASSESSOR) Erythrocyte Sedimentation Rate Westergren 15 0 - 15 mm/hr [facility] ACCOUNT BILL Comment:Please note refere nce interval change Blood specimen (specimen) BLOOD SPECIMEN / Unknown 05/15/2011 6:06 PM MULTI TOWNSHIP ASSESSOR 05/15/2011 9:47 PM MULTI TOWNSHIP ASSESSOR Narrative Resulting Agency Comment [facility] [address] [facility] ??[facility] [id number] Isidro Heredia MD LAB - HEMATOLOGY OR DERABLES Performing Organization Address City/[facility]/ZIP Co de Phone Number [facility] ACCOUNT BILL * (ABNORMAL) COMPREHENSIVE METABOLIC PANEL (05/15/2011 6:06 PM MULTI TOWNSHIP ASSESSOR) Glucose 120(H) 65 - 99 mg/dL [facility] [...] BLOOD SPECIMEN / Unknown 05/15/2011 6:06 PM MULTI TOWNSHIP ASSESSOR 05/15/2011 9:47 PM MULTI TOWNSHIP ASSESSOR Narrative Resulting Agency Comment [facility] [address] ??[facility] [phone] Isidro Heredia MD LAB - CHEMISTRY ORD ERABLES [facility] ACCOUNT BILL * (ABNORMAL) CBC W AUTO DIFFERENTIAL (05/15/2011 6:06 PM MULTI TOWNSHIP ASSESSOR) WBC 9.2 4.0 - 10.5 x10E3/uL [facility] [...] BLOOD SPECIMEN / Unknown 05/15/2011 6:06 PM MULTI TOWNSHIP ASSESSOR 05/15/2011 9:47 PM MULTI TOWNSHIP ASSESSOR Narrative Resulting Agency Comment [facility] [address] ??[facility] [phone] Isidro Heredia MD LAB - HEMATOLOGY OR DERABLES [facility] ACCOUNT BILL documented in this encounter Visit Diagnoses Diagnosis Rheumatoid arthritis(714.0) ([facility])- Primary Rheumatoid arthritis Triceps tendonitis Other enthesopathy of elbow region Hyperlipidemia Other and unspecified hyperlipidemia documented in this encounter Care Teams Merry Go Round Operator Relationship Specialty Start Date End Date Nolberto Nicole MD PCP - General 07/21/08 12/30/13 Isidro Heredia MD Rheumatology 02/09/11 documented as of this encounter
--- OUTSIDE RECORDS SUMMARY | 2024-05-10 10:29 | XMS_ITS | Encounter Summary ---
Author Organization [facility] Address [address] [facility] [place] [address] Care Team Providers Care Stoker Mechanic Name Role Phone Nolberto Nicole MD Primary Care Provider [phone] Isidro Heredia MD Unavailable [phone] Reason for Visit * Reason Comments Follow-up RA Pain Hand obdulia with swelling. r t is worse with tingling sensation * Evaluate & Treat (Routine) - Closed Specialty Diagnoses / Procedures Referred By Lawrence shah Referred To Contact Diagnoses Rheumatoid arthritis(714.0) (HCC) Procedures [place] OFFICE VISIT DURING HOURS Nolberto Nicole MD 0 [place] [address] Isidro Heredia MD [address] [place] [address] Referral ID Status Reason Start Date Expiration Date Visits Re quested Visits Authorized [id number] Closed 08/03/2011 01/30/2012 1 12 Encounter Details Date Type Department Care Team (Late st Contact Info) Description 08/07/2011 5:15 PM CDT Office Visit [facility] - Rheumatology [address] [place] [address] Isidro Heredia MD [address] [place] [address] Rheumatoid arthritis (HCC) (Primary Dx); [...] Body Mass Index 34.29 05/15/2011 5:19 PM PRINT LINE OPERATOR documented in this encounter Progress Notes [...] PO) Take by mouth once daily. ??? Nwgwreawted-Eqymnkgkz-Vsi C-Mn (GLUCOSAMINE CHONDR 1500 COMPLX PO) Take [...] st Contact Info) Description 06/03/2024 1:00 PM PRINT LINE OPERATOR Appointment [facility] - Rheumatology [address] [place] [address] 06/03/2024 2:00 PM PRINT LINE OPERATOR Office Visit [facility] - Rheumatology [address] [place] [address] Gloria Smith MD [address] [place] [phone] documented as of this encounter Visit Diagnoses Diagnosis Rheumatoid arthritis(714.0) (HCC)- Primary Rheumatoid arthritis Triceps tendonitis Other enthesopathy of elbow region Pneumonia Pneumonia, organism unspecified documented in this encounter Care Teams Stoker Mechanic Relationship Specialty Start Date End Date Nolberto Nicole MD PCP - General 07/21/08 12/30/13 Isidro Heredia MD Rheumatology 02/09/11 documented as of this encounter
--- OUTSIDE RECORDS SUMMARY | 2024-05-10 10:29 | XMS_ITS | Encounter Summary ---
Author Organization [facility] Address [address] [facility] [place] [address] Care Team Providers Care Pharmacologist Name Role Phone Nolberto Nicole MD Primary Care Provider Isidro Heredia MD Unavailable [phone] Reason for Visit * Reason Comments Follow-up RAa Arthritis joint achey all over Swelling Hand obdulia * Consult, Test & Treat (Routine) - Closed Specialty Diagnoses / Procedures Referred By Lawrence shah Referred To Contact Diagnoses Rheumatoid arthritis(714.0) (HCC) Procedures [place] OFFICE VISIT DURING HOURS Nolberto Nicole MD 0 [place] [address] Isidro Heredia MD [address] [place] [address] Referral ID Status Reason Start Date Expiration Date Visits Re quested Visits Authorized [id number] Closed 01/06/2011 07/04/2011 1 5 Encounter Details Date Type Department Care Team (Late st Contact Info) Description 04/17/2011 5:00 PM DRUM SPRAYER Office Visit [facility] [employer] [facility] - Rheumatology [address] [place] [address] Isidro Heredia MD [address] [place] [address] Rheumatoid arthritis (HCC) (Primary Dx); [...] Comments Blood Pressure 130/80 04/17/2011 5:22 PM DRUM SPRAYER Pulse 76 04/17/2011 5:23 PM DRUM SPRAYER Temperature - - Respiratory Rate - - Oxygen Saturation - - Inhaled Oxygen Concentration - - Weight 108.4 kg (239 lb) 04/17/2011 5:23 PM DRUM SPRAYER Height - - Body Mass Index 34.29 02/08/2009 5:43 PM CDT documented in this encounter Progress Notes * Corry Santizo MA - 04/27/2011 3:41 PM CSTQuick Note: Letter mailed to patient regarding lab results. SPRAYER * Isidro Heredia MD - 04/24/2011 3:48 PM CSTQuick Note: mtx ok SPRAYER * Isidro Heredia MD - 04/17/2011 5:21 [...] PO) Take by mouth once daily. ??? Rmwsdsgoxle-Ydbgbgpbh-Zfd C-Mn (GLUCOSAMINE CHONDR 1500 COMPLX PO) Take [...] Follow up in office in 4 weeks SPRAYER * Rea Hagan MA - 04/17/2011 5:21 PM CST Chief Complaint Patient presents with ??? Follow-up RAa ??? Arthritis joint achey all over ??? Swelling Hand obdulia BP 130/80 Pulse 76 Wt 239 lb (108.41 kg) SPRAYER documented in this encounter Plan of Treatment Upcoming Encounters Date Type Department Care Team (Late st Contact Info) Description 06/03/2024 1:00 PM DRUM SPRAYER Appointment [facility] - Rheumatology [address] [place] [address] 06/03/2024 2:00 PM DRUM SPRAYER Office Visit [facility] - Rheumatology [address] [place] [address] Gloria Smith MD [address] [place] [phone] documented as of this encounter Procedures Procedure Name Priority Date/Time Associated Diagnosis Comments C-REACTIVE PROTEIN Routine 04/17/2011 5: 13 PM DRUM SPRAYER Rheumatoid arthritis (HCC) ERYTHROCYTE SEDIMENTATION RATE Routine 04/17/2011 5:13 PM DRUM SPRAYER Rheumatoid arthritis (HCC) CBC W AUTO DIFFERENTIAL Routine 04/17/2011 5:13 PM DRUM SPRAYER Rheumatoid arthritis (HCC) COMPREHENSIVE METABOLIC PANEL Routine 04/17/2011 5:13 PM DRUM SPRAYER Rheumatoid arthritis (HCC) documented in this encounter Results * SED RATE WESTERGREN AUTO (04/17/2011 5:13 PM DRUM SPRAYER) Erythrocyte Sedimentation Rate Westergren 23 0 - 23 mm/hr [facility] ACCOUNT BILL Blood specimen (specimen) BLOOD SPECIMEN / Unknown 04/17/2011 5:13 PM DRUM SPRAYER 04/17/2011 10:15 PM DRUM SPRAYER Narrative Resulting Agency Comment [facility] [employer] [address] ??[facility] [phone] Isidro Heredia MD LAB - HEMATOLOGY OR DERABLES [facility] ACCOUNT BILL * (ABNORMAL) C-REACTIVE PROTEIN (04/17/2011 5:13 PM DRUM SPRAYER) C-Reactive Protein 16.0(H) 0.0 - 4.9 mg/L [facility] ACCOUNT BILL Blood specimen (specimen) BLOOD SPECIMEN / Unknown 04/17/2011 5:13 PM DRUM SPRAYER 04/17/2011 10:15 PM DRUM SPRAYER Narrative Resulting Agency Comment [facility] [place] [address] ??[facility] [phone] Isidro Heredia MD LAB - CHEMISTRY ORD ERABLES [facility] ACCOUNT BILL * (ABNORMAL) COMPREHENSIVE METABOLIC PANEL (04/17/2011 5:13 PM DRUM SPRAYER) Glucose 106(H) 65 - 99 mg/dL [facility] [...] BLOOD SPECIMEN / Unknown 04/17/2011 5:13 PM DRUM SPRAYER 04/17/2011 10:15 PM DRUM SPRAYER Narrative Resulting Agency Comment [facility] [address] ??[facility] [phone] Isidro Heredia MD LAB - CHEMISTRY ORD ERABLES [facility] ACCOUNT BILL * (ABNORMAL) CBC W AUTO DIFFERENTIAL (04/17/2011 5:13 PM DRUM SPRAYER) WBC 10.0 4.0 - 10.5 x10E3/uL [facility] [...] BLOOD SPECIMEN / Unknown 04/17/2011 5:13 PM DRUM SPRAYER 04/17/2011 10:15 PM DRUM SPRAYER Narrative Resulting Agency Comment [facility] [place] [id number] [facility] ??[facility] [id number] Isidro Heredia MD LAB - HEMATOLOGY OR DERABLES [facility] ACCOUNT BILL documented in this encounter Visit Diagnoses Diagnosis Rheumatoid arthritis(714.0) (HCC)- Primary Rheumatoid arthritis Triceps tendonitis Other enthesopathy of elbow region documented in this encounter Care Teams Pharmacologist Relationship Specialty Start Date End Date Nolberto Nicole MD PCP - General 07/21/08 12/30/13 Isidro Heredia MD Rheumatology 02/09/11 documented as of this encounter
--- OUTSIDE RECORDS SUMMARY | 2024-05-10 10:29 | XMS_ITS | Encounter Summary ---
Author Organization [facility] Address [address] [place] [place] [address] Care Team Providers Care Escrow Officer Name Role Phone Nolberto Nicole MD Primary Care Provider [phone] Isidro Heredia MD Unavailable [phone] Reason for Visit * Reason Comments Follow-up ra Shoulder Pain left Swelling Hand obdulia Pain Knee obdulia Encounter Details Date Type Department Care Team (Late st Contact Info) Description 02/13/2011 5:30 PM CDT Office Visit [facility] - Rheumatology [address] [place] [address] Isidro Heredia MD [address] [place] [address] Rheumatoid arthritis (HCC) (Primary Dx); Triceps [...] ??? Swelling Hand obdulia ??? Pain Knee obudlia Current Outpatient Prescriptions on File Prior to [...] st Contact Info) Description 06/03/2024 1:00 PM FINANCE ASSISTANT Appointment [facility] - Rheumatology [address] [place] [address] 06/03/2024 2:00 PM FINANCE ASSISTANT Office Visit [facility] - Rheumatology [address] [place] [address] Gloria Smith MD [address] [place] [phone] documented as of this encounter Procedures Procedure [...] CDT Narrative Resulting Agency Comment [facility] [address] ??[facility] [phone] Isidro Heredia MD LAB - SEROLOGY MARII ARAUJO Performing Organization Address City/[facility] Co de Phone Number [facility] ACCOUNT BILL * RHEUMATOID FACTOR BLOOD QUANTITATIVE (02/13/2011 5:59 PM CDT) Pathologist [facility] Rheumatoid Factor 8.0 0.0 - 13.9 IU/mL [facility] ACCOUNT BILL Blood specimen (specimen) BLOOD SPECIMEN / Unknown 02/13/2011 5:59 PM CDT 02/13/2011 9:26 PM CDT Narrative Resulting Agency Comment [facility] [place] [address] [facility] ??[facility] [phone] Isidro Heredia MD LAB - CHEMISTRY CALEB FIELDS [facility] ACCOUNT BILL * (ABNORMAL) SED RATE WESTERGREN AUTO (02/13/2011 5:59 PM CDT) Erythrocyte Sedimentation Rate Westergren 24(H) 0 - 23 mm/hr [facility] ACCOUNT BILL Blood specimen (specimen) BLOOD SPECIMEN / Unknown 02/13/2011 5:59 PM CDT 02/13/2011 9:26 PM CDT Narrative Resulting Agency Comment [facility] ??[facility] [phone] Isidro Heredia MD LAB - HEMATOLOGY OR DERABLES [facility] ACCOUNT BILL * C-REACTIVE PROTEIN (02/13/2011 5:59 PM CDT) C-Reactive Protein 1.2 0.0 - 4.9 mg/L [facility] ACCOUNT BILL Blood specimen (specimen) BLOOD SPECIMEN / Unknown 02/13/2011 5:59 PM CDT 02/13/2011 9:26 PM CDT Narrative Resulting Agency Comment [facility] [address] ??[facility] [phone] Isidro Heredia MD LAB - CHEMISTRY ORD [...] PM CDT Narrative Resulting Agency Comment [facility] [address] ??[facility] [phone] Isidro Heredia MD LAB - CHEMISTRY ORD [...] PM CDT Narrative Resulting Agency Comment [facility] [address] ??[facility] [phone] Isidro Heredia MD LAB - HEMATOLOGY OR DERABLES [facility] ACCOUNT BILL documented in this encounter Visit Diagnoses Diagnosis Rheumatoid arthritis(714.0) (HCC)- Primary Rheumatoid arthritis Triceps tendonitis Other enthesopathy of elbow region Subacromial bursitis Other specified disorders of rotator cuff syndrome of shoulder and allied disorders documented in this encounter Care Teams Escrow Officer Relationship Specialty Start Date End Date Nolberto Nicole MD PCP - General 07/21/08 12/30/13 Isidro Heredia MD Rheumatology 02/09/11 documented as of this encounter
--- OUTSIDE RECORDS SUMMARY | 2024-05-10 10:29 | XMS_ITS | Encounter Summary ---
Author Organization [facility] Address [address] [facility] [place] [address] Care Team Providers Care Stage Driver Name Role Phone Nolberto Nicole MD Primary Care Provider [phone] Reason for Visit * Reason Comments Chest [...] [facility] - Rheumatology [address] [place] [address] Isidro Heredia MD [address] [place], [place] [phone] Rheumatoid Arthritis (HCC) (Primary Dx) Social History [...] (ccp) ??? Rheumatoid factor blood quantitative ??? Rauqel w reflx (positive) (po ref lab) ??? [...] Contact Info) Description 06/03/2024 1:00 PM BEAD TRIMMER Appointment [facility] - Rheumatology [address] [place] [address] [phone] 06/03/2024 2:00 PM BEAD TRIMMER Office Visit [facility] - Rheumatology [address] [place] [address] Gloria Smith MD [address] [place] [phone] Scheduled Orders Name Type Priority Associated Diagnoses Orde r Schedule CBC W AUTO DIFFERENTIAL Lab Routine Rheumatoid Arthritis ([facility]) Ordered: 08/30/2009 COMPREHENSIVE METABOLIC PANEL Lab Routine Rheumatoid Arthritis ([facility]) Ordered: 08/30/2009 RAQUEL W REFLX (POSITIVE) (PO REF LAB) Lab Routine Rheumatoid Arthritis ([facility]) Ordered: 08/30/2009 documented as of this encounter Procedures Procedure Name Priority Date/Time Associated Diagnosis Comments CYCLIC CITRUL PEPTIDE ANTIBODY IGG/IGA (CCP) Routine 08/30/2009 6:07 PM CDT Rheumatoid Arthritis ([facility]) RHEUMATOID FACTOR BLOOD QUANTITATIVE Routine 08/30/2009 6:07 PM CDT Rheumatoid Arthritis ([facility]) C-REACTIVE PROTEIN Routine 08/30/2009 6: 07 PM CDT Rheumatoid Arthritis ([facility]) ERYTHROCYTE SEDIMENTATION RATE Routine 08/30/2009 6:07 PM CDT Rheumatoid Arthritis (HCC) documented in this encounter Results * SED RATE WESTERGREN AUTO (08/30/2009 6:07 PM CDT) Erythrocyte Sedimentation Rate Westergren 14 0 - 15 mm/hr [facility] ACCOUNT BILL BLOOD SPECIMEN / Unknown 08/30/2009 6:07 PM CDT 08/30/2009 8:42 PM CDT Narrative Resulting Agency Comment [facility] [place] [address] ??[facility] [phone] Isidro Heredia MD LAB - HEMATOLOGY OR DERABLES [facility] ACCOUNT BILL * RHEUMATOID FACTOR BLOOD QUANTITATIVE (08/30/2009 6:07 PM CDT) Rheumatoid Factor 6.8 0.0 - 13.9 IU/mL [facility] ACCOUNT BILL BLOOD SPECIMEN / Unknown 08/30/2009 6:07 PM CDT 08/30/2009 8:42 PM CDT Narrative Resulting Agency Comment [facility] [place] [address] ??[facility] [phone] Isidro Heredia MD LAB - CHEMISTRY ORD ERABLES Performing Organization Address [facility] Co de Phone Number [facility] [...] CDT Narrative Resulting Agency Comment [facility] [address] ??[facility] [phone] Isidro Heredia MD LAB - SEROLOGY MARII ARAUJO [facility] ACCOUNT BILL * C-REACTIVE PROTEIN (08/30/2009 6:07 PM CDT) C-Reactive Protein 2.8 0.0 - 4.9 mg/L [facility] ACCOUNT BILL BLOOD SPECIMEN / Unknown 08/30/2009 6:07 PM CDT 08/30/2009 8:42 PM CDT Narrative Resulting Agency Comment [facility] [place] [id number] [facility] ??[facility] [phone] Isidro Heredia MD LAB - CHEMISTRY ORD DONNIE [facility] ACCOUNT BILL documented in this encounter Visit Diagnoses Diagnosis Rheumatoid arthritis(714.0) ([facility])- Primary Rheumatoid arthritis documented in this encounter Care Teams Stage Driver Relationship Specialty Start Date End Date Nolberto Nicole MD PCP - General 07/21/08 12/30/13 documented as of this encounter
--- OUTSIDE RECORDS SUMMARY | 2024-05-10 10:29 | XMS_ITS | Encounter Summary ---
Author Organization [facility] Address [address] [place] [address] Care Team Providers Care Pottery Machine Operator Name Role Phone Nolberto Nicole MD Primary Care Provider [phone] Isidro Heredia MD Unavailable Reason for Visit * Reason Onset Date Comments MEDICATION REFILL 06/09/2011 Encounter Details Date Type Department Care Team (Late st Contact Info) Description 06/09/2011 Refill [facility] Medical [facility] - Rheumatology [address] [place] [address] Isidro Heredia MD [address] [place] [address] MEDICATION REFILL Social History Tobacco Use [...] take Humira injection until pneumonia is resolved. PING SPECIALIST * Telephone Encounter - Miranda Starr - 06/09/2011 1:38 PM CST Called pt to let him know he will need new referral for 06/12/11 visit. He said he is in the hospital for pneumonia and wants refill on Humira. PING SPECIALIST documented in this encounter Plan of Treatment Upcoming Encounters Date Type Department Care Team (Late st Contact Info) Description 06/03/2024 1:00 PM SHIPPING SPECIALIST Appointment [facility] - Rheumatology [address] [place] [address] [phone] 06/03/2024 2:00 PM SHIPPING SPECIALIST Office Visit [facility] - Rheumatology [address] [place] [address] Gloria Smith MD [address] [place] [phone] documented as of this encounter Visit Diagnoses Not on filedocumented in this encounter Care Teams Pottery Machine Operator Relationship Specialty Start Date End Date Nolberto Nicole MD PCP - General 07/21/08 12/30/13 Isidro Heredia MD Rheumatology 02/09/11 documented as of this encounter
--- OUTSIDE RECORDS SUMMARY | 2024-05-10 10:29 | XMS_ITS | Encounter Summary ---
Author Organization [facility] Address [address] [place] [address] Care Team Providers Care Karate Instructor Name Role Phone Nolberto Nicole MD Primary Care Provider [phone] Reason for Visit * Reason Comments Shoulder Pain rt Pain Hand rt General went to [facility] for E coli. this is resolved, treated with antibx Encounter Details Date Type Department Care Team (Late st Contact Info) Description 04/18/2010 3:15 PM BIOFUELS PRODUCTION MANAGER Office Visit [facility] - Rheumatology [address] [place] [address] Isidro Heredia MD [address] [place] [address] Rheumatoid arthritis (HCC) (Primary Dx) Social [...] Comments Blood Pressure 124/84 04/18/2010 4:17 PM BIOFUELS PRODUCTION MANAGER Pulse 80 04/18/2010 4:17 PM BIOFUELS PRODUCTION MANAGER Temperature - - Respiratory Rate - - Oxygen Saturation - - Inhaled Oxygen Concentration - - Weight 111.6 kg (246 lb) 04/18/2010 4:17 PM BIOFUELS PRODUCTION MANAGER Height - - Body Mass Index 35.3 02/08/2009 5:43 PM CDT documented in this encounter Progress Notes * Rea Hagan MA - 04/25/2010 6:50 PM CSTQuick Note: Sent lab letter to pt UELS PRODUCTION MANAGER * Isidro Heredia MD - 04/23/2010 8:43 PM CSTQuick Note: mtx ok UELS PRODUCTION MANAGER * Isidro Heredia MD - 04/18/2010 4:52 PM CST Subjective: Chalino Deng 49 y.o. male Chief Complaint Patient presents with ??? Shoulder Pain rt ??? Pain Hand rt ??? General went to [facility] for E coli. this is resolved, [...] Follow up in office in 4 mo UELS PRODUCTION MANAGER * Rea Hagan MA - 04/18/2010 4:21 PM CST Chief Complaint Patient presents with ??? Shoulder Pain rt ??? Pain Hand rt ??? General went to [facility] for E coli. this is resolved, treated with antibx BP 124/84 Pulse 80 Wt 246 lb (111.585 kg) UELS PRODUCTION MANAGER documented in this encounter Plan of Treatment Upcoming Encounters Date Type Department Care Team (Late st Contact Info) Description 06/03/2024 1:00 PM BIOFUELS PRODUCTION MANAGER Appointment [facility] - Rheumatology [address] [place] [address] 06/03/2024 2:00 PM BIOFUELS PRODUCTION MANAGER Office Visit [facility] - Rheumatology [address] [place] [address] Gloria Smith MD [address] [place] [phone] documented as of this encounter Procedures Procedure Name Priority Date/Time Associated Diagnosis Comments C-REACTIVE PROTEIN Routine 04/18/2010 4: 46 PM BIOFUELS PRODUCTION MANAGER Rheumatoid arthritis (HCC) ERYTHROCYTE SEDIMENTATION RATE Routine 04/18/2010 4:46 PM BIOFUELS PRODUCTION MANAGER Rheumatoid arthritis (HCC) CBC W AUTO DIFFERENTIAL Routine 04/18/2010 4:46 PM BIOFUELS PRODUCTION MANAGER Rheumatoid arthritis (HCC) COMPREHENSIVE METABOLIC PANEL Routine 04/18/2010 4:46 PM BIOFUELS PRODUCTION MANAGER Rheumatoid arthritis (HCC) documented in this encounter Results * (ABNORMAL) SED RATE WESTERGREN AUTO (04/18/2010 4:46 PM BIOFUELS PRODUCTION MANAGER) Erythrocyte Sedimentation Rate Westergren 19(H) 0 - 15 mm/hr [facility] ACCOUNT BILL BLOOD SPECIMEN / Unknown 04/18/2010 4:46 PM BIOFUELS PRODUCTION MANAGER 04/18/2010 10:29 PM BIOFUELS PRODUCTION MANAGER Narrative Resulting Agency Comment [facility] [place] [address] ??[facility] [phone] Isidro Heredia MD LAB - HEMATOLOGY OR DERABLES [facility] ACCOUNT BILL * C-REACTIVE PROTEIN (04/18/2010 4:46 PM BIOFUELS PRODUCTION MANAGER) C-Reactive Protein 4.5 0.0 - 4.9 mg/L [facility] ACCOUNT BILL BLOOD SPECIMEN / Unknown 04/18/2010 4:46 PM BIOFUELS PRODUCTION MANAGER 04/18/2010 10:29 PM BIOFUELS PRODUCTION MANAGER Narrative Resulting Agency Comment [facility] [place] [address] ??[place] [phone] Isidro Heredia MD LAB - CHEMISTRY ORD ERABLES Performing Organization Address City/[facility] Co de Phone Number [facility] ACCOUNT BILL * (ABNORMAL) COMPREHENSIVE METABOLIC PANEL (04/18/2010 4:46 PM BIOFUELS PRODUCTION MANAGER) Glucose 105(H) 65 - 99 mg/dL [...] BLOOD SPECIMEN / Unknown 04/18/2010 4:46 PM BIOFUELS PRODUCTION MANAGER 04/18/2010 10:29 PM BIOFUELS PRODUCTION MANAGER Narrative Resulting Agency Comment [facility] [place] [address] [facility] ??[facility] [phone] Isidro Heredia MD LAB - CHEMISTRY ORD ERABLES [facility] ACCOUNT BILL * CBC W AUTO DIFFERENTIAL (04/18/2010 4:46 PM BIOFUELS PRODUCTION MANAGER) WBC 9.9 4.0 - 10.5 x10E3/uL [...] BLOOD SPECIMEN / Unknown 04/18/2010 4:46 PM BIOFUELS PRODUCTION MANAGER 04/18/2010 10:29 PM BIOFUELS PRODUCTION MANAGER Narrative Resulting Agency Comment [facility] [address] [facility] ??[facility] [phone] Isidro Heredia MD LAB - HEMATOLOGY OR DERABLES [facility] ACCOUNT BILL documented in this encounter Visit Diagnoses Diagnosis Rheumatoid arthritis(714.0) ([facility])- Primary Rheumatoid arthritis documented in this encounter Care Teams Karate Instructor Relationship Specialty Start Date End Date Nolberto Nicole MD PCP - General 07/21/08 12/30/13 documented as of this encounter
--- OUTSIDE RECORDS SUMMARY | 2024-05-10 10:29 | XMS_ITS | Encounter Summary ---
Author Organization [facility] Address [address] [facility] [place] [address] Care Team Providers Care Featheredge Machine Operator Name Role Phone Nolberto Nicole MD Primary Care Provider [phone] Isidro Heredia MD Unavailable [phone] Reason for Visit * Reason Onset Date Comments General 08/01/2011 Request call ugo Valiente Encounter Details Date Type Department Care Team (Late st Contact Info) Description 08/01/2011 Telephone [facility] - Rheumatology [address] [place] [address] Isidro Heredia MD [address] [place] [address] General (Request call from Dr Valiente) [...] st Contact Info) Description 06/03/2024 1:00 PM WHARF WORKER Appointment [facility] - Rheumatology [address] [place] [address] [phone] 06/03/2024 2:00 PM WHARF WORKER Office Visit [facility] - Rheumatology [address] [place] [address] [phone] Gloria Smith MD [address] [place] [phone] documented as of this encounter Visit Diagnoses Not on filedocumented in this encounter Care Teams Featheredge Machine Operator Relationship Specialty Start Date End Date Nolberto Nicole MD PCP - General 07/21/08 12/30/13 Isidro Heredia MD Rheumatology 02/09/11 documented as of this encounter
--- OUTSIDE RECORDS SUMMARY | 2024-05-10 10:29 | XMS_ITS | Encounter Summary ---
Author Organization [facility] Address [address] [place] [address] [place] [address] Care Team Providers Care Client Portfolio Manager Name Role Phone Nolberto Nicole MD Primary Care Provider [phone] Reason for Visit * Reason Comments Follow-up ra Cramps obdulia legs at Encounter Details Date Type Department Care Team (Late st Contact Info) Description 05/05/2009 2:15 PM DIRECTOR TALENT Office Visit [facility] - Rheumatology [address] [place] [address] [phone] Isidro Heredia MD [address] [place] [address] Rheumatoid Arthritis (HCC) (Primary Dx); Osteopenia [...] Comments Blood Pressure 116/90 05/05/2009 2:25 PM DIRECTOR TALENT Pulse 88 05/05/2009 2:25 PM DIRECTOR TALENT Temperature - - Respiratory Rate - - Oxygen Saturation - - Inhaled Oxygen Concentration - - Weight 109.3 kg (241 lb) 05/05/2009 2:25 PM DIRECTOR TALENT Height - - Body Mass Index 34.58 02/08/2009 5:43 PM CDT documented in this encounter Progress Notes * Rea Hagan MA - 05/10/2009 11:23 AM CSTSamantha Note: Sent lab letter of 05/05/09 to pt CTOR TALENT * Isidro Heredia MD - 05/08/2009 9:37 PM CSTQurolando Note: Mtx ok CTOR TALENT * Isidro Heredia MD - 05/05/2009 2:50 [...] Follow up in office in 4 weeks CTOR TALENT * Rea Hagan MA - 05/05/2009 2:25 PM CST Chief Complaint Patient presents with ??? Follow-up ra ??? Cramps obdulia legs at hs BP 116/90 Pulse 88 Wt 109.317 kg (241 lb) CTOR TALENT documented in this encounter Plan of Treatment Upcoming Encounters Date Type Department Care Team (Late st Contact Info) Description 06/03/2024 1:00 PM DIRECTOR TALENT Appointment [facility] - Rheumatology [address] [place] [address] [phone] 06/03/2024 2:00 PM DIRECTOR TALENT Office Visit [facility] - Rheumatology [address] [place] [address] Gloria Smith MD [address] [place] [phone] documented as of this encounter Procedures Procedure Name Priority Date/Time Associated Diagnosis Comments C-REACTIVE PROTEIN Routine 05/05/2009 2: 34 PM DIRECTOR TALENT Rheumatoid Arthritis (HCC) ERYTHROCYTE SEDIMENTATION RATE Routine 05/05/2009 2:34 PM DIRECTOR TALENT Rheumatoid Arthritis (HCC) CBC W AUTO DIFFERENTIAL Routine 05/05/2009 2:34 PM DIRECTOR TALENT Rheumatoid Arthritis (HCC) COMPREHENSIVE METABOLIC PANEL Routine 05/05/2009 2:34 PM DIRECTOR TALENT Rheumatoid Arthritis (HCC) documented in this encounter Results * SED RATE WESTERGREN AUTO (05/05/2009 2:34 PM DIRECTOR TALENT) Erythrocyte Sedimentation Rate Westergren 9 0 - 15 mm/hr [facility] ACCOUNT BILL BLOOD SPECIMEN / Unknown 05/05/2009 2:34 PM DIRECTOR TALENT 05/05/2009 9:39 PM DIRECTOR TALENT Narrative Resulting Agency Comment [facility] [address] ??[facility] [id number] Isidro Heredia MD LAB - HEMATOLOGY OR DERABLES [facility] ACCOUNT BILL * COMPREHENSIVE METABOLIC PANEL (05/05/2009 2:34 PM DIRECTOR TALENT) Glucose 86 65 - 99 mg/dL [facility] [...] BLOOD SPECIMEN / Unknown 05/05/2009 2:34 PM DIRECTOR TALENT 05/05/2009 9:39 PM DIRECTOR TALENT Narrative Resulting Agency Comment [facility] [address] ??[facility] [id number] Isidro Heredia MD LAB - CHEMISTRY ORD ERABLES [facility] ACCOUNT BILL * C-REACTIVE PROTEIN (05/05/2009 2:34 PM DIRECTOR TALENT) C-Reactive Protein 3.8 0.0 - 4.9 mg/L [facility] ACCOUNT BILL BLOOD SPECIMEN / Unknown 05/05/2009 2:34 PM DIRECTOR TALENT 05/05/2009 9:39 PM DIRECTOR TALENT Narrative Resulting Agency Comment [facility] [address] ??[facility] [id number] Isidro Heredia MD LAB - CHEMISTRY ORD ERABLES [facility] ACCOUNT BILL * (ABNORMAL) CBC W AUTO DIFFERENTIAL (05/05/2009 2:34 PM DIRECTOR TALENT) Pathologist [facility] WBC 8.2 4.0 - [...] BLOOD SPECIMEN / Unknown 05/05/2009 2:34 PM DIRECTOR TALENT 05/05/2009 9:39 PM DIRECTOR TALENT Narrative [facility] ACCOUNT BILL - 05/06/2009 7:23 AM DIRECTOR TALENT Additional Result Information IMMATURE CELLS ([facility]): RESULT NOT AVAILABLE IMMATURE GRANULOCYTES ([facility]): RESULT NOT AVAILABLE IMMATURE GRANS (ABS) ([facility]): RESULT NOT AVAILABLE NRBC ([facility]): RESULT NOT AVAILABLE HEMATOLOGY COMMENTS: ??BLOOD,URINE ([facility]): RESULT NOT AVAILABLE Resulting Agency Comment [facility] [address] ??[facility] [id number] Isidro Heredia MD LAB - HEMATOLOGY OR DERABLES [facility] ACCOUNT BILL documented in this encounter Visit Diagnoses Diagnosis Rheumatoid arthritis(714.0) ([facility])- Primary Rheumatoid arthritis Osteopenia Disorder of bone and cartilage, unspecified documented in this encounter Care Teams Client Portfolio Manager Relationship Specialty Start Date End Date Nolberto Nicole MD PCP - General 07/21/08 12/30/13 documented as of this encounter
--- OUTSIDE RECORDS SUMMARY | 2024-05-10 10:29 | XMS_ITS | Encounter Summary ---
Author Organization [facility] Address [address] [place] [address] [place] [address] Care Team Providers Care Spare Fixer Name Role Phone Nolberto Nicole MD Primary Care Provider [phone] Reason for Visit * Reason Comments Follow-up RA Fatigue Encounter Details Date Type Department Care Team (Late st Contact Info) Description 11/14/2010 5:15 PM CDT Office Visit [facility] [employer] [facility] - Rheumatology [address] [place] [address] [phone] Isidro Heredia MD [address] [place] [address] Rheumatoid arthritis (HCC) (Primary Dx); Triceps [...] Contact Info) Description 06/03/2024 1:00 PM COOK SUPERVISOR Appointment [facility] - Rheumatology [address] [place] [address] 06/03/2024 2:00 PM COOK SUPERVISOR Office Visit [facility] - Rheumatology [address] [place] [address] [place] [address] Gloria Smith MD [address] [place], [place] [address] [place] [phone] documented as of this encounter Procedures Procedure [...] CDT Narrative Resulting Agency Comment [facility] [address] [facility] [facility] ??[facility] [phone] Isidro Heredia MD LAB - HEMATOLOGY OR DERABLES [facility] ACCOUNT BILL * (ABNORMAL) C-REACTIVE PROTEIN (11/14/2010 5:52 PM CDT) C-Reactive Protein 7.9(H) 0.0 - 4.9 mg/L [facility] ACCOUNT BILL BLOOD SPECIMEN / Unknown 11/14/2010 5:52 PM CDT 11/14/2010 8:52 PM CDT Narrative Resulting Agency Comment [facility] [address] [facility] ??[facility] [id number] Isidro Heredia MD LAB - CHEMISTRY ORD [...] PM CDT Narrative Resulting Agency Comment [facility] [place] [address] [facility] ??[facility] [id number] Isidro Heredia MD LAB - CHEMISTRY ORD [...] CDT Narrative Resulting Agency Comment [facility] [address] ??[facility] [id number] Isidro Heredia MD LAB - HEMATOLOGY OR DERABLES [facility] ACCOUNT BILL documented in this encounter Visit Diagnoses Diagnosis Rheumatoid arthritis(714.0) (HCC)- Primary Rheumatoid arthritis Triceps tendonitis Other enthesopathy of elbow region documented in this encounter Care Teams Spare Fixer Relationship Specialty Start Date End Date Nolberto Nicole MD PCP - General 07/21/08 12/30/13 documented as of this encounter
--- OUTSIDE RECORDS SUMMARY | 2024-05-10 10:29 | XMS_ITS | Encounter Summary ---
Author Organization [facility] Address [address] [place] [address] Care Team Providers Care Hide Worker Name Role Phone Nolberto Nicole MD Primary Care Provider [phone] Reason for Visit * Reason Comments Follow-up Ra Pain Scale: 7/10 Am Stiffness: 1 -2 hours Sleep: 5 hours Fatigue: yes Encounter Details Date Type Department Care Team (Late st Contact Info) Description 10/03/2010 5:00 PM CDT Office Visit [facility] - Rheumatology [address] [place] [address] Isidro Heredia MD [address] [place] [address] Rheumatoid arthritis (HCC) (Primary Dx); Triceps [...] st Contact Info) Description 06/03/2024 1:00 PM CASHIER CREDIT Appointment [facility] - Rheumatology [address] [place] [address] 06/03/2024 2:00 PM CASHIER CREDIT Office Visit [facility] - Rheumatology [address] [place] [address] Gloria Smith MD [address] [place] [phone] documented as of this encounter Procedures [...] CDT Narrative Resulting Agency Comment [facility] [address] ??[facility] [phone] Isidro Heredia MD LAB - HEMATOLOGY OR DERABLES [facility] ACCOUNT BILL * C-REACTIVE PROTEIN (10/03/2010 5:56 PM CDT) C-Reactive Protein 3.7 0.0 - 4.9 mg/L [facility] ACCOUNT BILL BLOOD SPECIMEN / Unknown 10/03/2010 5:56 PM CDT 10/03/2010 9:44 PM CDT Narrative Resulting Agency Comment [facility] [address] ??[facility] [id number] Isidro Heredia MD LAB - CHEMISTRY ORD [...] PM CDT Narrative Resulting Agency Comment [facility] [place] [address] [facility] ??[facility] [phone] Isidro Heredia MD LAB - CHEMISTRY ORD [...] CDT Narrative Resulting Agency Comment [facility] [address] ??[facility] [phone] Isidro Heredia MD LAB - HEMATOLOGY OR DERABLES [facility] ACCOUNT BILL documented in this encounter Visit Diagnoses Diagnosis Rheumatoid arthritis(714.0) (HCC)- Primary Rheumatoid arthritis Triceps tendonitis Other enthesopathy of elbow region documented in this encounter Care Teams Hide Worker Relationship Specialty Start Date End Date Nolberto Nicole MD PCP - General 07/21/08 12/30/13 documented as of this encounter
--- OUTSIDE RECORDS SUMMARY | 2024-05-10 10:29 | XMS_ITS | Encounter Summary ---
Author Organization [facility] Address [address] [facility] [place] [address] Care Team Providers Care Clip On Sunglasses Assembler Name Role Phone Nolberot Nicole MD Primary Care Provider [phone] Reason for Visit * Reason Comments Follow-up ra General end of last week shafer, breathing problem due to mole in air condition at job. chest still feels heavy Swelling Joint GENERALIZED BODY ACHES Pain Extremity obdulia ankle bruised Pain Leg obdulia Encounter Details Date Type Department Care Team (Late st Contact Info) Description 11/08/2009 5:00 PM CDT Office Visit [facility] Medical [facility] - Rheumatology [address] [place] [address] Isidro Heredia MD [address] [place], [place] [phone] Rheumatoid Arthritis (HCC) (Primary Dx) Social History [...] Contact Info) Description 06/03/2024 1:00 PM MEDICAL PHYSICS RESEARCHER Appointment [facility] - Rheumatology [address] [place] [address] [phone] 06/03/2024 2:00 PM MEDICAL PHYSICS RESEARCHER Office Visit [facility] - Rheumatology [address] [place] [address] [phone] Gloria Smith MD [address] [place] [phone] documented as of this encounter Procedures Procedure [...] PM CDT Narrative Resulting Agency Comment [facility] [place] [address] [facility] ??[facility] [phone] Isidro Heredia MD LAB - HEMATOLOGY OR [...] CDT Narrative Resulting Agency Comment [facility] [address] ??[facility] [id number] Isidro Heredia MD LAB - SEROLOGY ORDAvelino ARAUJO [facility] ACCOUNT BILL * C-REACTIVE PROTEIN (11/08/2009 5:18 PM CDT) C-Reactive Protein 3.2 0.0 - 4.9 mg/L [facility] ACCOUNT BILL BLOOD SPECIMEN / Unknown 11/08/2009 5:18 PM CDT 11/08/2009 8:47 PM CDT Narrative Resulting Agency Comment [facility] [address] ??[facility] [phone] Isidro Heredia MD LAB - CHEMISTRY ORD [...] CDT Narrative Resulting Agency Comment [facility] [address] ??[facility] [id number] Isidro Heredia MD LAB - CHEMISTRY ORD ERABLES [facility] ACCOUNT BILL documented in this encounter Visit Diagnoses Diagnosis Rheumatoid arthritis(714.0) ([facility])- Primary Rheumatoid arthritis documented in this encounter Care Teams Clip On Sunglasses Assembler Relationship Specialty Start Date End Date Nolberto Nicole MD PCP - General 07/21/08 12/30/13 documented as of this encounter
--- OUTSIDE RECORDS SUMMARY | 2024-05-10 10:29 | XMS_ITS | Encounter Summary ---
Author Organization [facility] Address [address] [facility] [place] [address] Care Team Providers Care Dip Filler Name Role Phone Nolberto Nicole MD [...] t Referred To Contact Diagnoses Rheumatoid arthritis(714.0) ([facility]) Procedures [place] OFFICE VISIT DURING HOURS Nolberto Nicole MD [address] [place] [address] Isidro Heredia MD [address] [place] [address] Referral ID Status Reason Start Date Expiration Date Visits Re quested Visits Authorized [id number] Closed 08/03/2011 01/30/2012 1 12 Encounter Details Date Type Department Care Team (Late st Contact Info) Description 10/09/2011 5:30 PM CDT Office Visit [facility] Where [facility] - Rheumatology [address] [place] [address] [phone] Isidro Heredia MD [address] [facility] [place] [address] Rheumatoid arthritis (HCC) (Primary Dx); [...] Body Mass Index 34.87 05/15/2011 5:19 PM RETAIL LOSS PREVENTION SPECIALIST documented in this encounter Progress Notes [...] PO) Take by mouth once daily. ??? Xeqkrbosdtz-Lncdhmtgc-Luv C-Mn (GLUCOSAMINE CHONDR 1500 COMPLX PO) Take [...] Contact Info) Description 06/03/2024 1:00 PM RETAIL LOSS PREVENTION SPECIALIST Appointment [facility] - Rheumatology [address] [place] [address] 06/03/2024 2:00 PM RETAIL LOSS PREVENTION SPECIALIST Office Visit [facility] - Rheumatology [address] [place] [address] Gloria Smith MD [address] [place] [phone] documented as of this encounter Procedures [...] PM CDT Narrative Resulting Agency Comment [facility] [address] [facility] ??[facility] [phone] Isidro Heredia MD LAB - HEMATOLOGY OR DERABLES [facility] ACCOUNT BILL * C-REACTIVE PROTEIN (10/09/2011 5:43 PM CDT) C-Reactive Protein 2.3 0.0 - 4.9 mg/L [facility] ACCOUNT BILL Blood specimen (specimen) BLOOD SPECIMEN / Unknown 10/09/2011 5:43 PM CDT 10/09/2011 10:15 PM CDT Narrative Resulting Agency Comment [facility] [address] ??[facility] [id number] Isidro Heredia MD LAB - CHEMISTRY ORD [...] CDT Narrative Resulting Agency Comment [facility] [address] ??[facility] [id number] Isidro Heredia MD LAB - CHEMISTRY ORD [...] CDT Narrative Resulting Agency Comment [facility] [address] ??[facility] [phone] Isidro Heredia MD LAB - HEMATOLOGY OR DERABLES [facility] ACCOUNT BILL documented in this encounter Visit Diagnoses Diagnosis Rheumatoid arthritis(714.0) (HCC)- Primary Rheumatoid arthritis Triceps tendonitis Other enthesopathy of elbow region LBP (low back pain) Lumbago documented in this encounter Care Teams Dip Filler Relationship Specialty Start Date End Date Nolberto Nicole MD PCP - General 07/21/08 12/30/13 Isidro Heredia MD Rheumatology 02/09/11 documented as of this encounter
--- OUTSIDE RECORDS SUMMARY | 2024-05-10 10:29 | XMS_ITS | Encounter Summary ---
Author Organization [facility] Address [address] [facility] [place] [address] Care Team Providers Care Silverware Etcher Name Role Phone Nolberto Nicole MD Primary Care Provider [phone] Reason for Visit * Reason Comments Pain Hand with swelling. (rt) Pain Knee rt. with some swelli ng Shoulder Pain rt Encounter Details Date Type Department Care Team (Late st Contact Info) Description 12/12/2010 5:15 PM CDT Office Visit [facility] - Rheumatology [address] [place] [address] Isidro Heredia MD [address] [place] [phone] Rheumatoid arthritis (HCC) (Primary Dx); Triceps [...] Contact Info) Description 06/03/2024 1:00 PM CLINICAL LABORATORY MEDICAL DIRECTOR Appointment [facility] - Rheumatology [address] [place] [address] [phone] 06/03/2024 2:00 PM CLINICAL LABORATORY MEDICAL DIRECTOR Office Visit [facility] - Rheumatology [address] [place] [address] Gloria Smith MD [address] [place] [phone] documented as of this encounter Procedures [...] PM CDT Narrative Resulting Agency Comment [facility] [address] [facility] ??[facility] [phone] Isidro Heredia MD LAB - HEMATOLOGY OR DERABLES [facility] ACCOUNT BILL * (ABNORMAL) C-REACTIVE PROTEIN (12/12/2010 6:06 PM CDT) C-Reactive Protein 5.2(H) 0.0 - 4.9 mg/L [facility] ACCOUNT BILL BLOOD SPECIMEN / Unknown 12/12/2010 6:06 PM CDT 12/12/2010 8:59 PM CDT Narrative Resulting Agency Comment [facility] [address] ??[facility] [phone] Isidro Heredia MD LAB - CHEMISTRY ORD ERABLES [facility] ACCOUNT BILL * (ABNORMAL) CBC W AUTO DIFFERENTIAL (12/12/2010 6:06 PM CDT) Pathologist [facility] WBC 9.7 4.0 - 10.5 x10E3/uL [facility] [...] PM CDT Narrative Resulting Agency Comment [facility] [address] ??[facility] [phone] Isidro Heredia MD LAB - HEMATOLOGY OR DERABLES [facility] ACCOUNT BILL * (ABNORMAL) COMPREHENSIVE METABOLIC PANEL (12/12/2010 6:06 PM CDT) Pathologist [facility] Glucose 78 65 - 99 mg/dL [facility] [...] PM CDT Narrative Resulting Agency Comment [facility] [address] ??[facility] [phone] Isidro Heredia MD LAB - CHEMISTRY ORD ERABLES [facility] ACCOUNT BILL documented in this encounter Visit Diagnoses Diagnosis Rheumatoid arthritis(714.0) (HCC)- Primary Rheumatoid arthritis Triceps tendonitis Other enthesopathy of elbow region documented in this encounter Care Teams Silverware Etcher Relationship Specialty Start Date End Date Nolberto Nicole MD PCP - General 07/21/08 12/30/13 documented as of this encounter
--- OUTSIDE RECORDS SUMMARY | 2024-05-10 10:29 | XMS_ITS | Encounter Summary ---
Author Organization [facility] Address [address] [facility] [place] [address] Care Team Providers Care Mail Weigher Name Role Phone Nolberto Nicole MD Primary Care Provider Reason for Visit * Reason Comments Follow-up RA. am stiffness: 1 hr Pain Scale:9/10 Fatigue Pain Joint knees, hands rt shou lder General nodules rt pointer f jenn Encounter Details Date Type Department Care Team (Late st Contact Info) Description 05/26/2010 2:15 PM NUCLEAR POWERPLANT SUPERVISOR Office Visit [facility] - Rheumatology [address] [place] [address] Isidro Heredia MD [address] [place], [place] [phone] Rheumatoid arthritis (HCC) (Primary Dx) Social History [...] Comments Blood Pressure 124/76 05/26/2010 2:39 PM NUCLEAR POWERPLANT SUPERVISOR Pulse 92 05/26/2010 2:39 PM NUCLEAR POWERPLANT SUPERVISOR Temperature - - Respiratory Rate - - Oxygen Saturation - - Inhaled Oxygen Concentration - - Weight 111.6 kg (246 lb) 05/26/2010 2:39 PM NUCLEAR POWERPLANT SUPERVISOR Height - - Body Mass Index 35.3 02/08/2009 5:43 PM CDT documented in this encounter Progress Notes * Rea Hagan MA - 06/07/2010 3:55 PM CSTQuick Note: Sent lab letter to pt EAR POWERPLANT SUPERVISOR * Isidro Heredia MD - 05/28/2010 9:25 PM CSTQuick Note: Wbc sl inc mtx ok EAR POWERPLANT SUPERVISOR * Isidro Heredia MD - 05/26/2010 3:02 [...] on file he was working hard in [place] Painful knees qand hands Pain Level: 01/07 [...] Follow up in office in 4 weeks EAR POWERPLANT SUPERVISOR * Rea Hagan MA - 05/26/2010 2:43 PM CST Chief Complaint Patient presents with ??? Follow-up RA. am stiffness: 1 hr Pain Scale:9/10 ??? Fatigue ??? Pain Joint knees, hands rt shoulder ??? General nodules rt pointer finger BP 124/76 Pulse 92 Wt 246 lb (111.585 kg) EAR POWERPLANT SUPERVISOR documented in this encounter Plan of Treatment Upcoming Encounters Date Type Department Care Team (Late st Contact Info) Description 06/03/2024 1:00 PM NUCLEAR POWERPLANT SUPERVISOR Appointment [facility] - Rheumatology [address] [place] [address] [phone] 06/03/2024 2:00 PM NUCLEAR POWERPLANT SUPERVISOR Office Visit [facility] - Rheumatology [address] [place] [address] Gloria Smith MD [address] [place] [phone] documented as of this encounter Procedures Procedure Name Priority Date/Time Associated Diagnosis Comments C-REACTIVE PROTEIN Routine 05/26/2010 2: 57 PM NUCLEAR POWERPLANT SUPERVISOR Rheumatoid arthritis (HCC) ERYTHROCYTE SEDIMENTATION RATE Routine 05/26/2010 2:57 PM NUCLEAR POWERPLANT SUPERVISOR Rheumatoid arthritis (HCC) CBC W AUTO DIFFERENTIAL Routine 05/26/2010 2:57 PM NUCLEAR POWERPLANT SUPERVISOR Rheumatoid arthritis (HCC) COMPREHENSIVE METABOLIC PANEL Routine 05/26/2010 2:57 PM NUCLEAR POWERPLANT SUPERVISOR Rheumatoid arthritis (HCC) documented in this encounter Results * (ABNORMAL) SED RATE WESTERGREN AUTO (05/26/2010 2:57 PM NUCLEAR POWERPLANT SUPERVISOR) Erythrocyte Sedimentation Rate Westergren 21(H) 0 - 15 mm/hr [facility] ACCOUNT BILL BLOOD SPECIMEN / Unknown 05/26/2010 2:57 PM NUCLEAR POWERPLANT SUPERVISOR 05/26/2010 8:56 PM NUCLEAR POWERPLANT SUPERVISOR Narrative Resulting Agency Comment [facility] ??[facility] [phone] Isidro Heredia MD LAB - HEMATOLOGY OR DERABLES Performing Organization Address City/[facility]/ZIP Co de Phone Number [facility] ACCOUNT BILL * C-REACTIVE PROTEIN (05/26/2010 2:57 PM NUCLEAR POWERPLANT SUPERVISOR) C-Reactive Protein 3.9 0.0 - 4.9 mg/L [facility] ACCOUNT BILL BLOOD SPECIMEN / Unknown 05/26/2010 2:57 PM NUCLEAR POWERPLANT SUPERVISOR 05/26/2010 8:56 PM NUCLEAR POWERPLANT SUPERVISOR Narrative Resulting Agency Comment [facility] ??[facility] [phone] Isidro Heredia MD LAB - CHEMISTRY ORD ERABLES Performing Organization Address [facility] de Phone Number [facility] ACCOUNT BILL * (ABNORMAL) COMPREHENSIVE METABOLIC PANEL (05/26/2010 2:57 PM NUCLEAR POWERPLANT SUPERVISOR) Glucose 99 65 - 99 mg/dL [facility] [...] BLOOD SPECIMEN / Unknown 05/26/2010 2:57 PM NUCLEAR POWERPLANT SUPERVISOR 05/26/2010 8:56 PM NUCLEAR POWERPLANT SUPERVISOR Narrative Resulting Agency Comment [facility] [address] ??[facility] [phone] Isidro Heredia MD LAB - CHEMISTRY ORD ERABLES [facility] ACCOUNT BILL * (ABNORMAL) CBC W AUTO DIFFERENTIAL (05/26/2010 2:57 PM NUCLEAR POWERPLANT SUPERVISOR) WBC 11.9(H) 4.0 - 10.5 x10E3/uL [facility] [...] BLOOD SPECIMEN / Unknown 05/26/2010 2:57 PM NUCLEAR POWERPLANT SUPERVISOR 05/26/2010 8:56 PM NUCLEAR POWERPLANT SUPERVISOR Narrative Resulting Agency Comment [facility] [address] ??[facility] [phone] Isidro Heredia MD LAB - HEMATOLOGY OR DERABLES [facility] ACCOUNT BILL documented in this encounter Visit Diagnoses Diagnosis Rheumatoid arthritis(714.0) (HCC)- Primary Rheumatoid arthritis documented in this encounter Care Teams Mail Weigher Relationship Specialty Start Date End Date Nolberto Nicole MD PCP - General 07/21/08 12/30/13 documented as of this encounter
--- OUTSIDE RECORDS SUMMARY | 2024-05-10 10:29 | XMS_ITS | Encounter Summary ---
Author Organization [facility] Address [address] [place] [address] [place] [address] Care Team Providers Care Naval Architect Specialist Name Role Phone Nolberto Nicole MD Primary Care Provider [phone] Reason for Visit * Reason Comments Swelling Hand some swelling General Pain Scale: 7/10 Shoulder Pain rt Encounter Details Date Type Department Care Team (Late st Contact Info) Description 08/29/2010 5:00 PM CDT Office Visit [facility] - Rheumatology [address] [place] [address] [phone] Isidro Heredia MD [address] [place] [phone] Rheumatoid arthritis (HCC) (Primary Dx) Social [...] st Contact Info) Description 06/03/2024 1:00 PM DERMATOLOGY SALES REPRESENTATIVE Appointment [facility] - Rheumatology [address] [place] [address] 06/03/2024 2:00 PM DERMATOLOGY SALES REPRESENTATIVE Office Visit [facility] - Rheumatology [address] [place] [address] Gloria Smith MD [address] [place] [phone] documented as of this encounter Procedures [...] 9:07 PM CDT Narrative Resulting Agency Comment [facility] ??[facility] [phone] Isidro Heredia MD LAB - HEMATOLOGY OR DERABLES [facility] ACCOUNT BILL * C-REACTIVE PROTEIN (08/29/2010 5:44 PM CDT) C-Reactive Protein 1.9 0.0 - 4.9 mg/L [facility] ACCOUNT BILL BLOOD SPECIMEN / Unknown 08/29/2010 5:44 PM CDT 08/29/2010 9:07 PM CDT Narrative Resulting Agency Comment [facility] ??[facility] [phone] Isidro Heredia MD LAB - CHEMISTRY ORD [...] CDT Narrative Resulting Agency Comment [facility] [address] ??[facility] [phone] Isidro Heredia MD LAB - CHEMISTRY ORD [...] CDT Narrative Resulting Agency Comment [facility] [address] ??[facility] [phone] Isidro Heredia MD LAB - HEMATOLOGY OR DERABLES [facility] ACCOUNT BILL documented in this encounter Visit Diagnoses Diagnosis Rheumatoid arthritis(714.0) (HCC)- Primary Rheumatoid arthritis documented in this encounter Care Teams Naval Architect Specialist Relationship Specialty Start Date End Date Nolberto Nicole MD PCP - General 07/21/08 12/30/13 documented as of this encounter
--- OUTSIDE RECORDS SUMMARY | 2024-05-10 10:29 | XMS_ITS | Encounter Summary ---
Author Organization [facility] Address [address] [facility] [place] [address] Care Team Providers Care Chair Inspector And Leveler Name Role Phone Nolberto Nicole MD Primary Care Provider [phone] Reason for Visit * Reason Comments Swelling Hand with white spots on palm of obdulia hands Pain legs,knees, rt foot especially the big toe Pain Back low General request handicap car d Encounter Details Date Type Department Care Team (Late st Contact Info) Description 12/13/2009 5:30 PM CDT Office Visit [facility] Medical [facility] - Rheumatology [address] [place] [address] Isidro Heredia MD [address] [place] [phone] Rheumatoid Arthritis (HCC) (Primary Dx) Social [...] doing fair On vacation last week in [place] Pain Level: 7/10 Am stiffness 2 hrs [...] Contact Info) Description 06/03/2024 1:00 PM FIRE ALARM DISPATCHER Appointment [facility] - Rheumatology [address] [place] [address] 06/03/2024 2:00 PM FIRE ALARM DISPATCHER Office Visit [facility] - Rheumatology [address] [place] [address] [phone] Gloria Smith MD [address] [place] [phone] documented as of this encounter Procedures Procedure [...] PM CDT Narrative Resulting Agency Comment [facility] [address] ??[facility] [phone] Isidro Heredia MD LAB - HEMATOLOGY OR DERABLES Performing Organization Address [facility] Co de Phone Number [facility] ACCOUNT BILL * RHEUMATOID FACTOR BLOOD QUANTITATIVE (12/13/2009 7:02 PM CDT) Rheumatoid Factor 8.3 0.0 - 13.9 IU/mL [facility] ACCOUNT BILL BLOOD SPECIMEN / Unknown 12/13/2009 7:02 PM CDT 12/13/2009 10:40 PM CDT Narrative Resulting Agency Comment [facility] [address] ??[facility] [phone] Isidro Heredia MD LAB - CHEMISTRY ORD ERABLES Performing Organization Address City/[facility]/ZIP Co de Phone Number [facility] ACCOUNT [...] PM CDT Narrative Resulting Agency Comment [facility] [address] ??[facility] [phone] Isidro Heredia MD LAB - SEROLOGY MARII ARAUJO Performing Organization Address [facility] Co de Phone Number [facility] ACCOUNT BILL * C-REACTIVE PROTEIN (12/13/2009 7:02 PM CDT) C-Reactive Protein 2.3 0.0 - 4.9 mg/L [facility] ACCOUNT BILL BLOOD SPECIMEN / Unknown 12/13/2009 7:02 PM CDT 12/13/2009 10:40 PM CDT Narrative Resulting Agency Comment [facility] [address] ??[facility] [phone] Isidro Heredia MD LAB - CHEMISTRY [place] Performing Organization Address City/[facility]/ZIP Co de Phone Number [facility] ACCOUNT [...] PM CDT Narrative Resulting Agency Comment [facility] [address] ??[facility] [phone] Isidro Heredia MD LAB - CHEMISTRY ORD [...] PM CDT Narrative Resulting Agency Comment [facility] [address] ??[facility] [phone] Isidro Heredia MD LAB - HEMATOLOGY OR DERABLES [facility] ACCOUNT BILL documented in this encounter Visit Diagnoses Diagnosis Rheumatoid arthritis(714.0) (HCC)- Primary Rheumatoid arthritis documented in this encounter Care Teams Chair Inspector And Leveler Relationship Specialty Start Date End Date Nolberto Nicole MD PCP - General 07/21/08 12/30/13 documented as of this encounter
--- OUTSIDE RECORDS SUMMARY | 2024-05-10 10:29 | XMS_ITS | Encounter Summary ---
Author Organization [facility] Address [address] [facility] [place] [address] Care Team Providers Care Account Maintenance Representative Name Role Phone Nolberto Nicole MD Primary Care Provider [phone] Isidro Heredia MD Unavailable [phone] Reason for Visit * Reason Comments Follow-up ra Stiff Hand obdulia Encounter Details Date Type Department Care Team (Late st Contact Info) Description 03/20/2011 4:45 PM MARKETING COMMUNICATIONS ASSISTANT Office Visit [facility] - Rheumatology [address] [place] [address] Isidro Heredia MD [address] [place] [phone] Rheumatoid arthritis (HCC) (Primary Dx); Triceps [...] Comments Blood Pressure 120/80 03/20/2011 5:10 PM MARKETING COMMUNICATIONS ASSISTANT Pulse 76 03/20/2011 5:10 PM MARKETING COMMUNICATIONS ASSISTANT Temperature - - Respiratory Rate - - Oxygen Saturation - - Inhaled Oxygen Concentration - - Weight 108.9 kg (240 lb) 03/20/2011 5:10 PM MARKETING COMMUNICATIONS ASSISTANT Height - - Body Mass Index 34.44 02/08/2009 5:43 PM CDT documented in this encounter Progress Notes * Isidro Heredia MD - 03/26/2011 5:36 PM CSTQuick Note: mtx ok See if we requested his old records ETING COMMUNICATIONS ASSISTANT * Isidro Heredia MD - 03/20/2011 5:10 [...] PO) Take by mouth once daily. ??? Afeutfmjnqe-[id number]-Ihb C-Mn (GLUCOSAMINE CHONDR 1500 COMPLX PO) Take [...] Get old records to verify previous biologics ETING COMMUNICATIONS ASSISTANT * Bentley Rea YouJED Thibodeaux - 03/20/2011 5:10 PM CST Chief Complaint Patient presents with ??? Follow-up ra ??? Stiff Hand obdulia BP 120/80 Pulse 76 Wt 240 lb (108.863 kg) ETING COMMUNICATIONS ASSISTANT documented in this encounter Plan of Treatment Upcoming Encounters Date Type Department Care Team (Late st Contact Info) Description 06/03/2024 1:00 PM MARKETING COMMUNICATIONS ASSISTANT Appointment [facility] - Rheumatology [address] [place] [address] 06/03/2024 2:00 PM MARKETING COMMUNICATIONS ASSISTANT Office Visit [facility] - Rheumatology [address] [place] [address] Gloria Smith MD [address] [place] [phone] Scheduled Orders Name Type Priority Associated Diagnoses Orde r Schedule CBC W AUTO DIFFERENTIAL Lab Routine Rheumatoid arthritis ([facility]) Ordered: 03/20/2011 COMPREHENSIVE METABOLIC PANEL Lab Routine Rheumatoid arthritis ([facility]) Ordered: 03/20/2011 C-REACTIVE PROTEIN Lab Routine Rheumatoid arthritis ([facility]) Ordered: 03/20/2011 SED RATE WESTERGREN AUTO Lab Routine Rheumatoid arthritis (HCC) Ordered: 03/20/2011 documented as of this encounter Procedures Procedure Name Priority Date/Time Associated Diagnosis Comments C-REACTIVE PROTEIN Routine 03/20/2011 5: 07 PM MARKETING COMMUNICATIONS ASSISTANT Rheumatoid arthritis (HCC) ERYTHROCYTE SEDIMENTATION RATE Routine 03/20/2011 5:07 PM MARKETING COMMUNICATIONS ASSISTANT Rheumatoid arthritis (HCC) CBC W AUTO DIFFERENTIAL Routine 03/20/2011 5:07 PM MARKETING COMMUNICATIONS ASSISTANT Rheumatoid arthritis (HCC) COMPREHENSIVE METABOLIC PANEL Routine 03/20/2011 5:07 PM MARKETING COMMUNICATIONS ASSISTANT Rheumatoid arthritis (HCC) documented in this encounter Results * SED RATE WESTERGREN AUTO (03/20/2011 5:07 PM MARKETING COMMUNICATIONS ASSISTANT) Erythrocyte Sedimentation Rate Westergren 11 0 - 23 mm/hr [facility] ACCOUNT BILL Blood specimen (specimen) BLOOD SPECIMEN / Unknown 03/20/2011 5:07 PM MARKETING COMMUNICATIONS ASSISTANT 03/20/2011 9:58 PM MARKETING COMMUNICATIONS ASSISTANT Narrative Resulting Agency Comment [facility] ??[facility] [phone] Isidro Heredia MD LAB - HEMATOLOGY OR DERABLES [facility] ACCOUNT BILL * C-REACTIVE PROTEIN (03/20/2011 5:07 PM MARKETING COMMUNICATIONS ASSISTANT) C-Reactive Protein 1.6 0.0 - 4.9 mg/L [facility] ACCOUNT BILL Blood specimen (specimen) BLOOD SPECIMEN / Unknown 03/20/2011 5:07 PM MARKETING COMMUNICATIONS ASSISTANT 03/20/2011 9:58 PM MARKETING COMMUNICATIONS ASSISTANT Narrative Resulting Agency Comment [facility] ??[facility] [phone] Isidro Heredia MD LAB - CHEMISTRY ORD ERABLES [facility] ACCOUNT BILL * COMPREHENSIVE METABOLIC PANEL (03/20/2011 5:07 PM MARKETING COMMUNICATIONS ASSISTANT) Glucose 97 65 - 99 mg/dL [facility] [...] BLOOD SPECIMEN / Unknown 03/20/2011 5:07 PM MARKETING COMMUNICATIONS ASSISTANT 03/20/2011 9:58 PM MARKETING COMMUNICATIONS ASSISTANT Narrative Resulting Agency Comment [facility] [address] ??[facility] [phone] Isidro Heredia MD LAB - CHEMISTRY ORD ERABLES [facility] ACCOUNT BILL * (ABNORMAL) CBC W AUTO DIFFERENTIAL (03/20/2011 5:07 PM MARKETING COMMUNICATIONS ASSISTANT) WBC 8.2 4.0 - 10.5 x10E3/uL [facility] [...] BLOOD SPECIMEN / Unknown 03/20/2011 5:07 PM MARKETING COMMUNICATIONS ASSISTANT 03/20/2011 9:58 PM MARKETING COMMUNICATIONS ASSISTANT Narrative Resulting Agency Comment [facility] [address] ??[facility] [phone] Isidro Heredia MD LAB - HEMATOLOGY OR DERABLES Performing Organization Address City/State/[facility] Co de Phone Number [facility] ACCOUNT BILL documented in this encounter Visit Diagnoses Diagnosis Rheumatoid arthritis(714.0) ([facility])- Primary Rheumatoid arthritis Triceps tendonitis Other enthesopathy of elbow region documented in this encounter Care Teams Account Maintenance Representative Relationship Specialty Start Date End Date Nolberto Nicole MD PCP - General 07/21/08 12/30/13 Isidro Heredia MD Rheumatology 02/09/11 documented as of this encounter
--- OUTSIDE RECORDS SUMMARY | 2024-05-10 10:29 | XMS_ITS | Encounter Summary ---
Author Organization [facility] Address [address] [place] [address] [place] [address] Care Team Providers Care Gliding Pilot Instructor Name Role Phone Nolberto Nicole MD Primary Care Provider [phone] Reason for Visit * Reason Onset Date Comments MEDICATION REFILL 10/26/2009 Encounter Details Date Type Department Care Team (Late st Contact Info) Description 10/26/2009 Refill [facility] Medical [facility] - Rheumatology [address] [place] [address] [phone] Isidro Heredia MD [address] [place] [address] [phone] MEDICATION REFILL Social History Tobacco Use Types [...] Contact Info) Description 06/03/2024 1:00 PM FILLING MACHINE OPERATOR Appointment [facility] - Rheumatology [address] [place] [address] 06/03/2024 2:00 PM FILLING MACHINE OPERATOR Office Visit [facility] - Rheumatology [address] [place] [address] Gloria Smith MD [address] [place] [phone] documented as of this encounter Visit Diagnoses Not on filedocumented in this encounter Care Teams Gliding Pilot Instructor Relationship Specialty Start Date End Date Nolberto Nicole MD PCP - General 07/21/08 12/30/13 documented as of this encounter
--- OUTSIDE RECORDS SUMMARY | 2024-05-10 10:29 | XMS_ITS | Encounter Summary ---
Author Organization [facility] Address [address] [place] [address] Care Team Providers Care Drone Software Development Engineer Name Role Phone Nolberto Nicole MD Primary Care Provider Isidro Heredia MD Unavailable Reason for Visit * Reason Comments Follow-up ra Shoulder Pain left * Evaluate & Treat (Routine) - Closed Specialty Diagnoses / Procedures Referred By Lawrence t Referred To Contact Diagnoses Rheumatoid arthritis(714.0) (HCC) Procedures ME OFFICE VISIT DURING HOURS Nolberto Nicole MD [address] [place] [address] Isidro Heredia MD [address] [place] [address] Referral ID Status Reason Start Date Expiration Date Visits Re quested Visits Authorized [id number] Closed 08/03/2011 01/30/2012 1 12 Encounter Details Date Type Department Care Team (Late st Contact Info) Description 12/11/2011 5:30 PM CDT Office Visit [facility] - Rheumatology [address] [place] [address] Isidro Heredia MD [address] [place] [address] Rheumatoid arthritis (HCC) (Primary Dx); [...] Body Mass Index 35.13 05/15/2011 5:19 PM CREPING MACHINE OPERATOR documented in this encounter Progress [...] PO) Take by mouth once daily. ??? Dmumaoxmiqg-Kajkfjovr-Lde C-Mn (GLUCOSAMINE CHONDR 1500 COMPLX PO) Take [...] C-REACTIVE PROTEIN ??? SED RATE WESTERGREN ??? ME DRAIN/INJECT LARGE JOINT/BURSA ??? oxycodone-acetaminophen (PERCOCET) 5-325 [...] st Contact Info) Description 06/03/2024 1:00 PM CREPING MACHINE OPERATOR Appointment [facility] - Rheumatology [address] [place] [address] 06/03/2024 2:00 PM CREPING MACHINE OPERATOR Office Visit [facility] - Rheumatology [address] [place] [address] Gloria Smith MD [address] [place] [phone] documented as of this encounter Procedures Procedure Name Priority Date/Time Associated Diagnosis Comments C-REACTIVE PROTEIN Routine 12/11/2011 6: 20 PM CDT Rheumatoid arthritis (HCC) ERYTHROCYTE SEDIMENTATION RATE Routine 12/11/2011 6:20 PM CDT Rheumatoid arthritis (HCC) CBC W AUTO DIFFERENTIAL Routine 12/11/2011 6:20 PM CDT Rheumatoid arthritis ([facility]) COMPREHENSIVE METABOLIC PANEL Routine 12/11/2011 6:20 PM CDT Rheumatoid arthritis (HCC) documented in this encounter Results * (ABNORMAL) SED RATE WESTERGREN (12/11/2011 6:20 PM CDT) Erythrocyte Sedimentation Rate Westergren 27(H) 0 - 15 mm/hr [facility] ACCOUNT BILL Blood specimen (specimen) BLOOD SPECIMEN / Unknown 12/11/2011 6:20 PM CDT 12/12/2011 4:32 AM CDT Narrative Resulting Agency Comment [facility] ??[facility] [phone] Isidro Heredia MD LAB - HEMATOLOGY OR DERABLES Performing Organization Address City/[facility]/ZIP Co de Phone Number [facility] ACCOUNT BILL * C-REACTIVE PROTEIN (12/11/2011 6:20 PM CDT) C-Reactive Protein 4.4 0.0 - 4.9 mg/L [facility] ACCOUNT BILL Blood specimen (specimen) BLOOD SPECIMEN / Unknown 12/11/2011 6:20 PM CDT 12/12/2011 4:32 AM CDT Narrative Resulting Agency Comment [facility] ??[facility] [phone] Isidro Heredia MD LAB - CHEMISTRY ORD ERABLES Performing Organization Address [facility] Co de Phone Number [facility] [...] AM CDT Narrative Resulting Agency Comment [facility] [address] ??[facility] [phone] Isidro Heredia MD LAB - CHEMISTRY ORD [...] AM CDT Narrative Resulting Agency Comment [facility] [address] ??[facility] [phone] Isidro Heredia MD LAB - HEMATOLOGY OR DERABLES [facility] ACCOUNT BILL documented in this encounter Visit Diagnoses Diagnosis Rheumatoid arthritis(714.0) ([facility])- Primary Rheumatoid arthritis Triceps tendonitis Other enthesopathy of elbow region Chronic pain syndrome documented in this encounter Care Teams Drone Software Development Engineer Relationship Specialty Start Date End Date Nolberto Nicole MD PCP - General 07/21/08 12/30/13 Isidro Heredia MD Rheumatology 02/09/11 documented as of this encounter
--- OUTSIDE RECORDS SUMMARY | 2024-05-10 10:29 | XMS_ITS | Encounter Summary ---
Author Organization [facility] Address [address] [place] [address] Care Team Providers Care Teacher Music Name Role Phone Nolberto Nicole MD Primary Care Provider [phone] Encounter Details Date Type Department Care Team (Late Contact Info) Description 11/08/2009 Orders Only [facility] - Rheumatology [address] [place] [address] Isidro Heredia MD [address] [place] [address] Social History Tobacco Use Types Packs/Day [...] Contact Info) Description 06/03/2024 1:00 PM MAINTENANCE PARTS TECHNICIAN Appointment [facility] - Rheumatology [address] [place] [address] 06/03/2024 2:00 PM MAINTENANCE PARTS TECHNICIAN Office Visit [facility] - Rheumatology [address] [place] [address] Gloria Smith MD [address] [place] [phone] documented as of this encounter Procedures [...] NOT AVAILABLE Resulting Agency Comment [facility] [address] ??[facility] [phone] Isidro Heredia MD LAB - HEMATOLOGY OR DERABLES [facility] ACCOUNT BILL documented in this encounter Visit Diagnoses Not on filedocumented in this encounter Care Teams Teacher Music Relationship Specialty Start Date End Date Nolberto Nicole MD PCP - General 07/21/08 12/30/13 documented as of this encounter
--- OUTSIDE RECORDS SUMMARY | 2024-05-10 10:29 | XMS_ITS | Encounter Summary ---
Author Organization [facility] Address [address] [place] [address] [place] [address] Care Team Providers Care Vice President Business & Corporate Development Name Role Phone Nolberto Nicole MD Primary Care Provider Reason for Visit * Reason Comments Shoulder Pain rt Encounter Details Date Type Department Care Team (Late st Contact Info) Description 01/10/2010 4:15 PM CDT Office Visit [facility] - Rheumatology [address] [place] [address] Isidro Heredia MD [address] [place] [address] Rheumatoid Arthritis (HCC) (Primary Dx); Osteopenia Social [...] Contact Info) Description 06/03/2024 1:00 PM ENVIRONMENTAL SCIENCES PROFESSOR Appointment [facility] - Rheumatology [address] [place] [phone] 06/03/2024 2:00 PM ENVIRONMENTAL SCIENCES PROFESSOR Office Visit [facility] - Rheumatology [address] [place] [address] Gloria Smith MD [address] [place] [phone] documented as of this encounter Procedures Procedure [...] PM CDT Narrative Resulting Agency Comment [facility] [address] ??[facility] [phone] Isidro Heredia MD LAB - HEMATOLOGY OR DERABLES [facility] ACCOUNT BILL * C-REACTIVE PROTEIN (01/10/2010 5:14 PM CDT) C-Reactive Protein 3.4 0.0 - 4.9 mg/L [facility] ACCOUNT BILL BLOOD SPECIMEN / Unknown 01/10/2010 5:14 PM CDT 01/10/2010 8:33 PM CDT Narrative Resulting Agency Comment [facility] [address] ??[facility] [id number] Isidro Heredia MD LAB - CHEMISTRY ORD [...] PM CDT Narrative Resulting Agency Comment [facility] [address] ??[facility] [phone] Isidro Heredia MD LAB - CHEMISTRY ORD [...] PM CDT Narrative Resulting Agency Comment [facility] [address] ??[facility] [phone] Isidro Heredia MD LAB - HEMATOLOGY OR DERABLES [facility] ACCOUNT BILL documented in this encounter Visit Diagnoses Diagnosis Rheumatoid arthritis(714.0) ([facility])- Primary Rheumatoid arthritis Osteopenia Disorder of bone and cartilage, unspecified documented in this encounter Care Teams Vice President Business & Corporate Development Relationship Specialty Start Date End Date Nolberto Nicole MD PCP - General 07/21/08 12/30/13 documented as of this encounter
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
--- OUTSIDE RECORDS SUMMARY | 2024-05-10 10:29 | XMS_ITS | Encounter Summary ---
Author Organization [facility] Address [address] [address] Care Team Providers Care Paediatric Thoracic Physician Name Role Phone Nolberto Nicole MD Primary Care Provider [phone] Encounter Details Date Type Department Care Team (Late st Contact Info) Description 08/30/2009 Orders Only [facility] - Rheumatology [address] [place] [address] [phone] Isidro Heredia MD [address] [place] [address] [phone] Social History Tobacco Use Types Packs/Day Years [...] st Contact Info) Description 06/03/2024 1:00 PM HELPER TEACHER Appointment [facility] - Rheumatology [address] [place] [address] 06/03/2024 2:00 PM HELPER TEACHER Office Visit [facility] - Rheumatology [address] [place] [address] Gloria Smith MD [address] [place] [phone] documented as of this encounter Procedures [...] Narrative Resulting Agency Comment [facility] [place] [address] [facility] ??[facility] [phone] Isidro Heredia MD LAB - CHEMISTRY ORD [...] CDT Narrative Resulting Agency Comment [facility] [address] ??[facility] [phone] Isidro Heredia MD LAB - CHEMISTRY ORD [...] RESULT NOT AVAILABLE Resulting Agency Comment [facility] [address] ??[facility] [phone] Isidro Heredia MD LAB - HEMATOLOGY OR DERABLES [facility] ACCOUNT BILL documented in this encounter Visit Diagnoses Not on filedocumented in this encounter Care Teams Paediatric Thoracic Physician Relationship Specialty Start Date End Date Noblerto Nicole MD PCP - General 07/21/08 12/30/13 documented as of this encounter
--- OUTSIDE RECORDS SUMMARY | 2024-05-10 10:29 | XMS_ITS | Encounter Summary ---
Author Organization [facility] Address [address] [facility] [place] [address] Care Team Providers Care Cause Analyst Name Role Phone Nolberto Nicole MD Primary Care Provider [phone] Isidro Heredia MD Unavailable [phone] Reason for Visit * Reason Comments Rheumatoid [...] shah Referred To Contact Diagnoses Rheumatoid arthritis(714.0) ([facility]) Procedures [place] OFFICE VISIT DURING HOURS Nolberto Nicole MD [address] [place] [address] Isidro Heredia MD [address] [place] [address] Referral ID Status Reason Start Date Expiration Date Visits Re quested Visits Authorized [id number] Closed 02/20/2012 08/18/2012 1 5 Encounter Details Date Type Department Care Team (Late st Contact Info) Description 05/27/2012 5:00 PM STAPLER MACHINE Office Visit [facility] - Rheumatology [address] [place] [address] Isidro Heredia MD [address] [place] [address] Rheumatoid arthritis (HCC) (Primary Dx); Subacromial bursitis [...] Comments Blood Pressure 130/72 05/27/2012 5:38 PM STAPLER MACHINE Pulse 80 05/27/2012 5:38 PM STAPLER MACHINE Temperature 36.8 ??C (98.2 ??F) 05/27/2012 5:38 PM CS T Respiratory Rate - - Oxygen Saturation - - Inhaled Oxygen Concentration - - Weight 112.9 kg (248 lb 12.8 oz) 05/27/2012 5:38 PM STAPLER MACHINE Height - - Body Mass Index 35.7 05/15/2011 5:19 PM STAPLER MACHINE documented in this encounter Progress Notes * Isidro Heredia MD - 06/03/2012 7:00 AM CSTQuick Note: mtx ok LER MACHINE * Isidro Heredia MD - 05/27/2012 5:59 [...] PO) Take by mouth once daily. ??? Neockghzlki-Efiwmmzcq-Sgz C-Mn (GLUCOSAMINE CHONDR 1500 COMPLX PO) Take [...] C-REACTIVE PROTEIN ??? SED RATE WESTERGREN ??? [place] DRAIN/INJECT LARGE JOINT/BURSA ??? oxycodone-acetaminophen (PERCOCET) 5-325 [...] Follow up in office in 4 weeks LER MACHINE * Rea Hagan MA - 05/27/2012 5:41 [...] Wt 112.855 kg (248 lb 12.8 oz) LER MACHINE documented in this encounter Plan of Treatment Upcoming Encounters Date Type Department Care Team (Late st Contact Info) Description 06/03/2024 1:00 PM STAPLER MACHINE Appointment [facility] - Rheumatology [address] [place] [address] 06/03/2024 2:00 PM STAPLER MACHINE Office Visit [facility] - Rheumatology [address] [place] [address] Gloria Smith MD [address] [place] [phone] documented as of this encounter Procedures Procedure Name Priority Date/Time Associated Diagnosis Comments C-REACTIVE PROTEIN Routine 05/27/2012 6: 20 PM STAPLER MACHINE Rheumatoid arthritis (HCC) ERYTHROCYTE SEDIMENTATION RATE Routine 05/27/2012 6:20 PM STAPLER MACHINE Rheumatoid arthritis (HCC) CBC W AUTO DIFFERENTIAL Routine 05/27/2012 6:20 PM STAPLER MACHINE Rheumatoid arthritis (HCC) COMPREHENSIVE METABOLIC PANEL Routine 05/27/2012 6:20 PM STAPLER MACHINE Rheumatoid arthritis (HCC) documented in this encounter Results * (ABNORMAL) SED RATE WESTERGREN (05/27/2012 6:20 PM STAPLER MACHINE) Erythrocyte Sedimentation Rate Westergren 22(H) 0 - 15 mm/hr [facility] ACCOUNT BILL Blood specimen (specimen) BLOOD SPECIMEN / Unknown 05/27/2012 6:20 PM STAPLER MACHINE 05/27/2012 7:35 PM STAPLER MACHINE Narrative Resulting Agency Comment [facility] [place] [address] ??[facility] [phone] Isidro Heredia MD LAB - HEMATOLOGY OR DERABLES [facility] ACCOUNT BILL * C-REACTIVE PROTEIN (05/27/2012 6:20 PM STAPLER MACHINE) C-Reactive Protein 2.9 0.0 - 4.9 mg/L [facility] ACCOUNT BILL Blood specimen (specimen) BLOOD SPECIMEN / Unknown 05/27/2012 6:20 PM STAPLER MACHINE 05/27/2012 7:35 PM STAPLER MACHINE Narrative Resulting Agency Comment [facility] [place] [address] ??[facility] [phone] Isidro Heredia MD LAB - CHEMISTRY ORD ERABLES [facility] ACCOUNT BILL * (ABNORMAL) COMPREHENSIVE METABOLIC PANEL (05/27/2012 6:20 PM STAPLER MACHINE) Glucose 93 65 - 99 mg/dL [facility] [...] BLOOD SPECIMEN / Unknown 05/27/2012 6:20 PM STAPLER MACHINE 05/27/2012 7:35 PM STAPLER MACHINE Narrative Resulting Agency Comment [facility] [address] ??[facility] [phone] Isidro Heredia MD LAB - CHEMISTRY ORD ERABLES [facility] ACCOUNT BILL * (ABNORMAL) CBC W AUTO DIFFERENTIAL (05/27/2012 6:20 PM STAPLER MACHINE) WBC 11.1(H) 4.0 - 10.5 x10E3/uL [facility] [...] BLOOD SPECIMEN / Unknown 05/27/2012 6:20 PM STAPLER MACHINE 05/27/2012 7:35 PM STAPLER MACHINE Narrative Resulting Agency Comment [facility] [address] ??[facility] [phone] Isidro Heredia MD LAB - HEMATOLOGY OR DERABLES [facility] ACCOUNT BILL documented in this encounter Visit Diagnoses Diagnosis Rheumatoid arthritis(714.0) ([facility])- Primary Rheumatoid arthritis Subacromial bursitis Other specified disorders of rotator cuff syndrome of shoulder and allied disorders documented in this encounter Care Teams Cause Analyst Relationship Specialty Start Date End Date Nolberto Nicole MD PCP - General 07/21/08 12/30/13 Isidro Heredia MD Rheumatology 02/09/11 documented as of this encounter
--- OUTSIDE RECORDS SUMMARY | 2024-05-10 10:29 | XMS_ITS | Encounter Summary ---
Author Organization [facility] Address [address] [facility] [place] [address] Care Team Providers Care Caster Operator Name Role Phone Nolberto Nicole MD Primary Care Provider Isidro Heredia MD Unavailable [phone] Reason for Visit * Reason Onset Date Comments Follow-up 04/15/2012 Encounter Details Date Type Department Care Team (Late st Contact Info) Description 04/15/2012 Telephone [facility] - Rheumatology [address] [place] [address] Isidro Heredia MD [address] [place] [address] Follow-up Social History Tobacco Use Types [...] 4:07 PM CST Informed pharmacy of note R SURFACER * Telephone Encounter - Rea Hagan MA - 04/15/2012 3:12 PM CST Please call pharm and let them know pt to take Prednisone bid. Thanks! R SURFACER * Telephone Encounter - ParrishYasmeen - 04/15/2012 9:26 AM CST [facility] CALLED 2 DIFF INSTRUCTIONS ON HIS PREDINSONE 1 ONCE DAILY THEN IT SAYS 1 IN AM 1 PM PLEASE CALL BACK TO CONFIRM [phone] R SURFACER documented in this encounter Plan of Treatment Upcoming Encounters Date Type Department Care Team (Late st Contact Info) Description 06/03/2024 1:00 PM FLOOR SURFACER Appointment [facility] - Rheumatology [address] [place] [address] 06/03/2024 2:00 PM FLOOR SURFACER Office Visit [facility] - Rheumatology [address] [place] [address] Gloria Smith MD [address] [place] [phone] documented as of this encounter Visit Diagnoses Not on filedocumented in this encounter Care Teams Caster Operator Relationship Specialty Start Date End Date Nolberto Nicole MD PCP - General 07/21/08 12/30/13 Isidro Heredia MD Rheumatology 02/09/11 documented as of this encounter
--- OUTSIDE RECORDS SUMMARY | 2024-05-10 10:29 | XMS_ITS | Encounter Summary ---
Author Organization [facility] Address [address] [place] [address] [place] [address] Care Team Providers Care Outside Salesperson Name Role Phone Nolberto Nicole MD Primary Care Provider [phone] Reason for Visit * Reason Comments Rheumatoid Arthritis followup Encounter Details Date Type Department Care Team (Late st Contact Info) Description 07/05/2009 5:15 PM CAR EXAMINER Office Visit [facility] - Rheumatology [address] [place] [address] [phone] Isidro Heredia MD [address] [place] [address] Rheumatoid Arthritis (HCC) (Primary Dx); Osteopenia; Subacromial [...] Comments Blood Pressure 100/80 07/05/2009 5:37 PM CAR EXAMINER Pulse 60 07/05/2009 5:37 PM CAR EXAMINER Temperature - - Respiratory Rate - - Oxygen Saturation - - Inhaled Oxygen Concentration - - Weight 110.2 kg (243 lb) 07/05/2009 5:37 PM CAR EXAMINER Height - - Body Mass Index 34.87 [...] bursa. Patient tolerated procedure well without complications. EXAMINER * Emily Salinas RN - 07/05/2009 5:40 PM CST BP 100/80 Pulse 60 Wt 110.224 kg (243 lb) GH level 6/10, except pain in bilateral shoulders 8/10 worst in left shoulder unable to lift a cup EXAMINER documented in this encounter Plan of Treatment Upcoming Encounters Date Type Department Care Team (Late st Contact Info) Description 06/03/2024 1:00 PM CAR EXAMINER Appointment [facility] - Rheumatology [address] [place] [address] 06/03/2024 2:00 PM CAR EXAMINER Office Visit [facility] - Rheumatology [address] [place] [address] Gloria Smith MD [address] [place] [phone] documented as of this encounter Visit Diagnoses Diagnosis Rheumatoid arthritis(714.0) ([facility])- Primary Rheumatoid arthritis Osteopenia Disorder of bone and cartilage, unspecified Subacromial bursitis Other specified disorders of rotator cuff syndrome of shoulder and allied disorders documented in this encounter Care Teams Outside Salesperson Relationship Specialty Start Date End Date Nolberto Nicole MD PCP - General 07/21/08 12/30/13 documented as of this encounter
--- OUTSIDE RECORDS SUMMARY | 2024-05-10 10:29 | XMS_ITS | Encounter Summary ---
Author Organization [facility] Address [address] [place] [address] Care Team Providers Care Eyeglass Frame Truer Name Role Phone Nolberto Nicole MD Primary Care Provider [phone] Encounter Details Date Type Department Care Team (Late Contact Info) Description 06/07/2009 Orders Only [facility] - Rheumatology [address] [place] [address] Isidro Heredia MD [address] [place] [address] Social History Tobacco Use Types Packs/Day [...] (Late Contact Info) Description 06/03/2024 1:00 PM JEWELRY BENCH WORKER Appointment [facility] - Rheumatology [address] [place] [address] 06/03/2024 2:00 PM JEWELRY BENCH WORKER Office Visit [facility] - Rheumatology [address] [place] [address] Gloria Smith MD [address] [place] [phone] documented as of this encounter Procedures Procedure Name Priority Date/Time Associated Diagnosis Comments C-REACTIVE PROTEIN 06/07/2009 5: 41 PM JEWELRY BENCH WORKER ERYTHROCYTE SEDIMENTATION RATE 06/07/2009 5:41 PM JEWELRY BENCH WORKER documented in this encounter Results * C-REACTIVE PROTEIN (06/07/2009 5:41 PM JEWELRY BENCH WORKER) C-Reactive Protein 2.0 0.0 - 4.9 mg/L [facility] ACCOUNT BILL 06/07/2009 5:41 PM JEWELRY BENCH WORKER 06/07/2009 9:20 PM JEWELRY BENCH WORKER Narrative Resulting Agency Comment [facility] [place] [id number] ??[facility], [facility] [phone] Isidro Heredia MD LAB - CHEMISTRY ORD ERABLES Performing Organization Address City/[facility]/ZIP Co de Phone Number [facility] ACCOUNT BILL * SED RATE WESTERGREN AUTO (06/07/2009 5:41 PM JEWELRY BENCH WORKER) Erythrocyte Sedimentation Rate Westergren 10 0 - 15 mm/hr [facility] ACCOUNT BILL 06/07/2009 5:41 PM JEWELRY BENCH WORKER 06/07/2009 9:20 PM JEWELRY BENCH WORKER Narrative Resulting Agency Comment [facility] [place] [address] [facility] ??[facility], [facility] [phone] Isidro Heredia MD LAB - HEMATOLOGY OR DERABLES [facility] ACCOUNT BILL documented in this encounter Visit Diagnoses Not on filedocumented in this encounter Care Teams Eyeglass Frame Truer Relationship Specialty Start Date End Date Nolberto Nicole MD PCP - General 07/21/08 12/30/13 documented as of this encounter
--- OUTSIDE RECORDS SUMMARY | 2024-05-10 10:29 | XMS_ITS | Encounter Summary ---
Author Organization [facility] Address [address] [place] [address] [place] [address] Care Team Providers Care Sandwich Board Carrier Name Role Phone Nolberto Nicole MD Primary Care Provider [phone] Reason for Visit * Reason Comments Follow-up RA Encounter Details Date Type Department Care Team (Late st Contact Info) Description 01/16/2011 5:30 PM CDT Office Visit [facility] - Rheumatology [address] [place] [address] [phone] Isidro Heredia MD [address] [place] [address] [phone] Rheumatoid arthritis (HCC) (Primary Dx); Triceps tendonitis [...] Drug Use Not on file went to [place] for a week Pain Level: 11/06 Am [...] st Contact Info) Description 06/03/2024 1:00 PM MANAGEMENT SPECIALIST Appointment [facility] - Rheumatology [address] [place] [address] 06/03/2024 2:00 PM MANAGEMENT SPECIALIST Office Visit [facility] - Rheumatology [address] [place] [address] Gloria Smith MD [address] [place] [phone] documented as of this encounter Procedures [...] PM CDT Narrative Resulting Agency Comment [facility] [place] [address] [facility] ??[facility] [phone] Isidro Heredia MD LAB - HEMATOLOGY OR [...] PM CDT Narrative Resulting Agency Comment [facility] [address] ??[facility] [phone] Isidro Heredia MD LAB - CHEMISTRY ORD ERABLES [facility] ACCOUNT BILL * (ABNORMAL) C-REACTIVE PROTEIN (01/16/2011 6:00 PM CDT) C-Reactive Protein 5.8(H) 0.0 - 4.9 mg/L [facility] ACCOUNT BILL BLOOD SPECIMEN / Unknown 01/16/2011 6:00 PM CDT 01/16/2011 10:24 PM CDT Narrative Resulting Agency Comment [facility] [address] ??[facility] [phone] Isidro Heredia MD LAB - CHEMISTRY ORD ERABLES [facility] ACCOUNT BILL * (ABNORMAL) CBC W AUTO DIFFERENTIAL (01/16/2011 6:00 PM CDT) Pathologist [facility] WBC 9.6 4.0 - 10.5 x10E3/uL [facility] [...] PM CDT Narrative Resulting Agency Comment [facility] [address] ??[facility] [phone] Isidro Heredia MD LAB - HEMATOLOGY OR DERABLES [facility] ACCOUNT BILL documented in this encounter Visit Diagnoses Diagnosis Rheumatoid arthritis(714.0) (HCC)- Primary Rheumatoid arthritis Triceps tendonitis Other enthesopathy of elbow region documented in this encounter Care Teams Sandwich Board Carrier Relationship Specialty Start Date End Date Nolberto Nicole MD PCP - General 07/21/08 12/30/13 documented as of this encounter
--- OUTSIDE RECORDS SUMMARY | 2024-05-10 10:29 | XMS_ITS | Encounter Summary ---
Author Organization [facility] Address [address] [place] [address] Care Team Providers Care Tool Trouble Shooter Name Role Phone Nolberto Nicole MD Primary Care Provider [phone] Isidro Heredia MD Unavailable [phone] Reason for Visit * Reason Comments Follow-up RA Upper Extremity Problem rt shoulder and hands especially when he wakes up in the am. swelling in obdulia hands Medication Request wants to discuss dec rease in Prednisone * Evaluate & Treat (Routine) - Closed Specialty Diagnoses / Procedures Referred By Lawrence shah Referred To Contact Diagnoses Rheumatoid arthritis(714.0) ([facility]) Procedures [facility] OFFICE VISIT DURING HOURS Nolberto Nicole MD [address] [place] [address] Isidro Heredia MD [address] [place] [address] Referral ID Status Reason Start Date Expiration Date Visits Re quested Visits Authorized [id number] Closed 02/20/2012 08/18/2012 1 5 Encounter Details Date Type Department Care Team (Late st Contact Info) Description 03/11/2012 5:00 PM CONTAINER REPAIRER Office Visit [facility] - Rheumatology [address] [place] [address] Isidro Heredia MD [address] [place] [address] Rheumatoid arthritis (HCC) (Primary Dx); [...] Comments Blood Pressure 130/68 03/11/2012 5:02 PM CONTAINER REPAIRER Pulse 88 03/11/2012 5:02 PM CONTAINER REPAIRER Temperature - - Respiratory Rate - - Oxygen Saturation - - Inhaled Oxygen Concentration - - Weight 114.2 kg (251 lb 12.8 oz) 03/11/2012 5:02 PM CONTAINER REPAIRER Height - - Body Mass Index 36.13 05/15/2011 5:19 PM CONTAINER REPAIRER documented in this encounter Progress Notes * Rea Haagn MA - 03/15/2012 2:29 PM CSTQuick Note: Sent lab letter to pt AINER REPAIRER * Isidro Heredia MD - 03/15/2012 5:43 AM CSTQuick Note: mtx ok AINER REPAIRER * Isidro Heredia MD - 03/11/2012 5:23 [...] PO) Take by mouth once daily. ??? Drchbfxijkb-[id number]-Kpi C-Mn (GLUCOSAMINE CHONDR 1500 COMPLX PO) Take [...] Follow up in office in 4 weeks AINER REPAIRER * Rea Hagan MA - 03/11/2012 5:03 PM CST Chief Complaint Patient presents with ??? Follow-up RA ??? Upper Extremity Problem rt shoulder and hands especially when he wakes up in the am. swelling in obdulia hands ??? Medication Request wants to discuss decrease in Prednisone BP 130/68 Pulse 88 Wt 251 lb 12.8 oz (114.216 kg) AINER REPAIRER documented in this encounter Plan of Treatment Upcoming Encounters Date Type Department Care Team (Late st Contact Info) Description 06/03/2024 1:00 PM CONTAINER REPAIRER Appointment [facility] - Rheumatology [address] [place] [address] 06/03/2024 2:00 PM CONTAINER REPAIRER Office Visit [facility] - Rheumatology [address] [place] [address] Gloria Smith MD [address] [place] [phone] documented as of this encounter Procedures Procedure Name Priority Date/Time Associated Diagnosis Comments C-REACTIVE PROTEIN Routine 03/11/2012 5: 38 PM CONTAINER REPAIRER Rheumatoid arthritis (HCC) ERYTHROCYTE SEDIMENTATION RATE Routine 03/11/2012 5:38 PM CONTAINER REPAIRER Rheumatoid arthritis (HCC) CBC W AUTO DIFFERENTIAL Routine 03/11/2012 5:38 PM CONTAINER REPAIRER Rheumatoid arthritis (HCC) COMPREHENSIVE METABOLIC PANEL Routine 03/11/2012 5:38 PM CONTAINER REPAIRER Rheumatoid arthritis (HCC) documented in this encounter Results * (ABNORMAL) SED RATE WESTERGREN (03/11/2012 5:38 PM CONTAINER REPAIRER) Erythrocyte Sedimentation Rate Westergren 26(H) 0 - 15 mm/hr [facility] ACCOUNT BILL Blood specimen (specimen) BLOOD SPECIMEN / Unknown 03/11/2012 5:38 PM CONTAINER REPAIRER 03/11/2012 10:04 PM CONTAINER REPAIRER Narrative Resulting Agency Comment [facility] [address] ??[facility] [phone] Isidro Heredia MD LAB - HEMATOLOGY OR DERABLES [facility] ACCOUNT BILL * C-REACTIVE PROTEIN (03/11/2012 5:38 PM CONTAINER REPAIRER) C-Reactive Protein 3.6 0.0 - 4.9 mg/L [facility] ACCOUNT BILL Blood specimen (specimen) BLOOD SPECIMEN / Unknown 03/11/2012 5:38 PM CONTAINER REPAIRER 03/11/2012 10:04 PM CONTAINER REPAIRER Narrative Resulting Agency Comment [facility] [id number] [facility] ??[facility] [phone] Isidro Heredia MD LAB - CHEMISTRY ORD ERABLES Performing Organization Address City/[facility]/ZIP Co de Phone Number [facility] ACCOUNT BILL * (ABNORMAL) COMPREHENSIVE METABOLIC PANEL (03/11/2012 5:38 PM CONTAINER REPAIRER) Glucose 113(H) 65 - 99 mg/dL [facility] [...] BLOOD SPECIMEN / Unknown 03/11/2012 5:38 PM CONTAINER REPAIRER 03/11/2012 10:04 PM CONTAINER REPAIRER Narrative Resulting Agency Comment [facility] [address] ??[facility] [phone] Isidro Heredia MD LAB - CHEMISTRY ORD ERABLES [facility] ACCOUNT BILL * (ABNORMAL) CBC W AUTO DIFFERENTIAL (03/11/2012 5:38 PM CONTAINER REPAIRER) WBC 9.8 4.0 - 10.5 x10E3/uL [facility] [...] BLOOD SPECIMEN / Unknown 03/11/2012 5:38 PM CONTAINER REPAIRER 03/11/2012 10:04 PM CONTAINER REPAIRER Narrative Resulting Agency Comment [facility] [address] ??[facility] [phone] Isidro Heredia MD LAB - HEMATOLOGY OR DERABLES [facility] ACCOUNT BILL documented in this encounter Visit Diagnoses Diagnosis Rheumatoid arthritis(714.0) (HCC)- Primary Rheumatoid arthritis Triceps tendonitis Other enthesopathy of elbow region documented in this encounter Care Teams Tool Trouble Shooter Relationship Specialty Start Date End Date Nolberto Nicole MD PCP - General 07/21/08 12/30/13 Isidro Heredia MD Rheumatology 02/09/11 documented as of this encounter
--- OUTSIDE RECORDS SUMMARY | 2024-05-10 10:30 | XMS_ITS | Encounter Summary ---
Author Organization [facility] Address [address] [facility] [place] [address] Care Team Providers Care Dip Lube Operator Name Role Phone Nolberto Nicole MD Primary Care Provider [phone] Isidro Heredia MD Unavailable [phone] Tomas Hyman MD Primary Care Provider [phone] Tomas Hyman MD Primary Care Provider [phone] Encounter Details Date Type Department Care Team (Late st Contact Info) Description 08/18/2008 [facility] Outpatient Visit EXTERNAL NON[facility] DEPT Isidro Heredia MD [address] [place] [address] Social History Tobacco Use Types Packs/Day [...] (Late Contact Info) Description 06/03/2024 1:00 PM SISAL OPERATOR Appointment [facility] - Rheumatology [address] [place] [address] [phone] 06/03/2024 2:00 PM SISAL OPERATOR Office Visit [facility] - Rheumatology [address] [place] [address] Gloria Smith MD [facility] [place] [phone] documented as of this encounter Visit Diagnoses Not on filedocumented in this encounter Care Teams Dip Lube Operator Relationship Specialty Start Date End Date Nolberto Nicole MD PCP - General 07/21/08 12/30/13 Tomas Hyman MD [address] [place] [address] PCP - General Family Medicine 12/31/13 05/09/18 Tomas Hyman MD [address] [place] [address] PCP - General Family Medicine 09/05/18 Isidro Heredia MD Rheumatology 02/09/11 documented as of this encounter
--- OUTSIDE RECORDS SUMMARY | 2024-05-10 10:30 | XMS_ITS | Encounter Summary ---
Author Organization [facility] Address [address] [place] [address] [place] [address] Care Team Providers Care Rubber Heel And Sole Press Tender Name Role Phone Nolberto Nicole MD Primary Care Provider [phone] Reason for Visit * Reason Comments Follow-up ra Fatigue Encounter Details Date Type Department Care Team (Late st Contact Info) Description 02/08/2009 5:00 PM CDT Office Visit [facility] - Rheumatology [address] [place] [address] [phone] Isidro Heredia MD [address] [place] [address] [phone] Rheumatoid Arthritis (HCC) (Primary Dx); Bursitis, Subacromial/Subdelt [...] st Contact Info) Description 06/03/2024 1:00 PM PATIENT ADVOCATE Appointment [facility] - Rheumatology [address] [place] [address] 06/03/2024 2:00 PM PATIENT ADVOCATE Office Visit [facility] - Rheumatology [address] [place] [address] Gloria Smith MD [address] [place] [address] [place] [phone] Scheduled Orders Name Type Priority Associated Diagnoses Orde r Schedule CBC W AUTO DIFFERENTIAL Lab Routine Rheumatoid Arthritis ([facility]) Ordered: 02/08/2009 COMPREHENSIVE METABOLIC PANEL Lab Routine Rheumatoid Arthritis ([facility]) Ordered: 02/08/2009 C-REACTIVE PROTEIN Lab Routine Rheumatoid Arthritis ([facility]) Ordered: 02/08/2009 documented as of this encounter Procedures Procedure Name Priority Date/Time Associated Diagnosis Comments ERYTHROCYTE SEDIMENTATION RATE Routine 02/08/2009 6:07 PM CDT Rheumatoid Arthritis ([facility]) documented in this encounter Results * SED RATE WESTERGREN AUTO (02/08/2009 6:07 PM CDT) Erythrocyte Sedimentation Rate Westergren 7 0 - 15 mm/hr [facility] ACCOUNT BILL BLOOD SPECIMEN / Unknown 02/08/2009 6:07 PM CDT 02/08/2009 9:30 PM CDT Narrative Resulting Agency Comment [facility] [address] ??[facility] [phone] Isidro Heredia MD LAB - HEMATOLOGY OR DERABLES [facility] ACCOUNT BILL documented in this encounter Visit Diagnoses Diagnosis Rheumatoid arthritis(714.0) ([facility])- Primary Rheumatoid arthritis Bursitis, subacromial/subdeltoid Other specified disorders of rotator cuff syndrome of shoulder and allied disorders documented in this encounter Care Teams Rubber Heel And Sole Press Tender Relationship Specialty Start Date End Date Nolberto Nicole MD PCP - General 07/21/08 12/30/13 documented as of this encounter
--- OUTSIDE RECORDS SUMMARY | 2024-05-10 10:30 | XMS_ITS | Encounter Summary ---
Author Organization [facility] Address [address] [place] [address] Care Team Providers Care Distribution Lineman Name Role Phone Nolberto Nicole MD Primary Care Provider Encounter Details Date Type Department Care Team (Late Contact Info) Description 11/16/2008 Orders Only [facility] - Rheumatology [address] [place] [address] Isidro Heredia MD [address] [place] [address] Social History Tobacco Use Types Packs/Day [...] Contact Info) Description 06/03/2024 1:00 PM CONCRETE MIXER OPERATOR HELPER Appointment [facility] - Rheumatology [address] [place] [address] 06/03/2024 2:00 PM CONCRETE MIXER OPERATOR HELPER Office Visit [facility] - Rheumatology [address] [place] [address] Gloria Smith MD [address] [place] [phone] documented as of this encounter Procedures Procedure Name Priority Date/Time Associated Diagnosis Comments C-REACTIVE PROTEIN 11/16/2008 6: 09 PM CDT ERYTHROCYTE SEDIMENTATION RATE 11/16/2008 6:09 PM CDT documented in this encounter Results * C-REACTIVE PROTEIN (11/16/2008 6:09 PM CDT) C-Reactive Protein 4.8 0.0 - 4.9 mg/L [facility] ACCOUNT BILL 11/16/2008 6:09 PM CDT 11/16/2008 9:41 PM CDT Narrative Resulting Agency Comment [facility] [place] [address] ??[facility] [phone] Isidro Heredia MD LAB - CHEMISTRY ORD ERABLES Performing Organization Address City/[facility]/ZIP Co de Phone Number [facility] ACCOUNT BILL * (ABNORMAL) SED RATE WESTERGREN AUTO (11/16/2008 6:09 PM CDT) Erythrocyte Sedimentation Rate Westergren 20(H) 0 - 15 mm/hr [facility] ACCOUNT BILL 11/16/2008 6:09 PM CDT 11/16/2008 9:41 PM CDT Narrative Resulting Agency Comment [facility] [place] [address] [facility] ??[facility] [phone] Isidro Heredia MD LAB - HEMATOLOGY OR DERABLES [facility] ACCOUNT BILL documented in this encounter Visit Diagnoses Not on filedocumented in this encounter Care Teams Distribution Lineman Relationship Specialty Start Date End Date Nolberto Nicole MD PCP - General 07/21/08 12/30/13 documented as of this encounter
--- OUTSIDE RECORDS SUMMARY | 2024-05-10 10:30 | XMS_ITS | Encounter Summary ---
Author Organization [facility] Address [address] [place] [address] [place] [address] Care Team Providers Care Psychological Science Professor Name Role Phone Nolberto Nicole MD Primary Care Provider [phone] Reason for Visit * Reason Comments Rheumatoid Arthritis followup Encounter Details Date Type Department Care Team (Late st Contact Info) Description 11/16/2008 5:15 PM CDT Office Visit [facility] - Rheumatology [address] [place] [address] Isidro Heredia MD [address] [place] [address] Rheumatoid Arthritis (HCC) (Primary Dx); GERD (Gastroesophageal [...] for 10 weeks spondylosis C5C6 Xrays from [place]/08 Current outpatient prescriptions prior to encounter Medication [...] Contact Info) Description 06/03/2024 1:00 PM AUTO RADIO MECHANIC Appointment [facility] - Rheumatology [address] [place] [address] [phone] 06/03/2024 2:00 PM AUTO RADIO MECHANIC Office Visit [facility] - Rheumatology [address] [place] [address] [phone] Gloria Smith MD [address] [place] [phone] Scheduled Orders Name Type Priority Associated Diagnoses [...] CDT Narrative Resulting Agency Comment [facility] [address] ??[facility] [phone] Isidro Heredia MD LAB - CHEMISTRY ORD [...] NOT AVAILABLE Resulting Agency Comment [facility] [address] ??[facility] [phone] Isidro Heredia MD LAB - HEMATOLOGY OR DERABLES [facility] ACCOUNT BILL documented in this encounter Visit Diagnoses Diagnosis Rheumatoid arthritis(714.0) ([facility])- Primary Rheumatoid arthritis GERD (gastroesophageal reflux disease) Esophageal reflux Osteopenia Disorder of bone and cartilage, unspecified documented in this encounter Care Teams Psychological Science Professor Relationship Specialty Start Date End Date Nolberto Nicole MD PCP - General 07/21/08 12/30/13 documented as of this encounter
--- OUTSIDE RECORDS SUMMARY | 2024-05-10 10:30 | XMS_ITS | Encounter Summary ---
Author Organization [facility] Address [address] [place] [address] Care Team Providers Care Business Analytics Specialist Name Role Phone Nolberto Nicole MD Primary Care Provider [phone] Encounter Details Date Type Department Care Team (Late Contact Info) Description 10/12/2008 Orders Only [facility] - Rheumatology [address] [place] [address] Isidro Heredia MD [address] [place] [address] Social History Tobacco Use Types Packs/Day [...] (Late Contact Info) Description 06/03/2024 1:00 PM REGISTERED NURSE TEACHER Appointment [facility] - Rheumatology [address] [place] [address] 06/03/2024 2:00 PM REGISTERED NURSE TEACHER Office Visit [facility] - Rheumatology [address] [place] [address] Gloria Smith MD [address] [place] [phone] documented as of this encounter Procedures Procedure Name Priority Date/Time Associated Diagnosis Comments RHEUMATOID FACTOR BLOOD QUANTITATIVE 10/12/2008 6:16 PM CDT documented in this encounter Results * RHEUMATOID FACTOR BLOOD QUANTITATIVE (10/12/2008 6:16 PM CDT) Rheumatoid Factor 4.7 0.0 - 13.9 IU/mL [facility] ACCOUNT BILL 10/12/2008 6:16 PM CDT 10/12/2008 9:22 PM CDT Narrative Resulting Agency Comment [facility] [address] ??[facility] [phone] Isidro Heredia MD LAB - CHEMISTRY ORD ERABLES [facility] ACCOUNT BILL documented in this encounter Visit Diagnoses Not on filedocumented in this encounter Care Teams Business Analytics Specialist Relationship Specialty Start Date End Date Nolberto Nicole MD PCP - General 07/21/08 12/30/13 documented as of this encounter
--- OUTSIDE RECORDS SUMMARY | 2024-05-10 10:30 | XMS_ITS | Encounter Summary ---
Author Organization [facility] Address [address] [facility] [place] [address] Care Team Providers Care Systems Mgr Name Role Phone Nolberto Nicole MD Primary Care Provider Reason for Visit * Reason Comments General want to discuss swit fred [id number] - nausea. want to take Percocet General taking Cipro for div erticulitis Encounter Details Date Type Department Care Team (Late st Contact Info) Description 12/14/2008 5:15 PM CDT Office Visit [facility] - Rheumatology [address] [place] [address] Isidro Heredia MD [address] [place], [place] [phone] Rheumatoid Arthritis (HCC) (Primary Dx) Social History [...] with ??? General want to discuss switching [id number] - nausea. want to take Percocet 5/325 [...] with ??? General want to discuss switching [id number] - nausea. want to take Percocet 5/325 ??? General taking Cipro for diverticulitis BP 128/86 Pulse 88 Wt 109.77 kg (242 lb) documented in this encounter Plan of Treatment Upcoming Encounters Date Type Department Care Team (Late st Contact Info) Description 06/03/2024 1:00 PM GROUP INSURANCE SPECIAL AGENT Appointment [facility] - Rheumatology [address] [place] [address] 06/03/2024 2:00 PM GROUP INSURANCE SPECIAL AGENT Office Visit [facility] - Rheumatology [address] [place] [address] Gloria Smith MD [address] [place] [phone] documented as of this encounter Procedures [...] PM CDT Narrative Resulting Agency Comment [facility] [place] [address] [facility] ??[facility] [phone] Isidro Heredia MD LAB - HEMATOLOGY OR DERABLES [facility] ACCOUNT BILL * C-REACTIVE PROTEIN (12/14/2008 5:54 PM CDT) C-Reactive Protein 1.6 0.0 - 4.9 mg/L [facility] ACCOUNT BILL BLOOD SPECIMEN / Unknown 12/14/2008 5:54 PM CDT 12/14/2008 9:29 PM CDT Narrative Resulting Agency Comment [facility] [address] ??[facility] [phone] Isidro Heredia MD LAB - CHEMISTRY ORD [...] CDT Narrative Resulting Agency Comment [facility] [address] ??[facility] [phone] Isidro Heredia MD LAB - CHEMISTRY ORD [...] RESULT NOT AVAILABLE Resulting Agency Comment [facility] [address] ??[facility] [phone] Isidro Heredia MD LAB - HEMATOLOGY OR DERABLES [facility] ACCOUNT BILL documented in this encounter Visit Diagnoses Diagnosis Rheumatoid arthritis(714.0) ([facility])- Primary Rheumatoid arthritis documented in this encounter Care Teams Systems Mgr Relationship Specialty Start Date End Date Nolberto Nicole MD PCP - General 07/21/08 12/30/13 documented as of this encounter
--- OUTSIDE RECORDS SUMMARY | 2024-05-10 10:30 | XMS_ITS | Encounter Summary ---
Author Organization [facility] Address [address] [facility] [place] [address] Care Team Providers Care Director Quality Assurance Name Role Phone Nolberto Nicole MD Primary Care Provider [phone] Encounter Details Date Type Department Care Team (Late Contact Info) Description 02/08/2009 Orders Only [facility] - Rheumatology [address] [place] [address] [phone] Isidro Heredia MD [address] [place] [address] [phone] Social History Tobacco Use Types Packs/Day Years [...] (Late Contact Info) Description 06/03/2024 1:00 PM BREASTER Appointment [facility] - Rheumatology [address] [place] [address] 06/03/2024 2:00 PM BREASTER Office Visit [facility] - Rheumatology [address] [place] [phone] Gloria Smith MD [address] [place] [address] [phone] documented as of this encounter Procedures Procedure [...] CDT Narrative Resulting Agency Comment [facility] [address] ??[facility] [phone] Isidro Heredia MD LAB - CHEMISTRY ORD [...] CDT Narrative Resulting Agency Comment [facility] [address] ??[facility] [phone] Isidro Heredia MD LAB - CHEMISTRY ORD [...] RESULT NOT AVAILABLE Resulting Agency Comment [facility] [address] ??[facility] [phone] Isidro Heredia MD LAB - HEMATOLOGY OR DERABLES [facility] ACCOUNT BILL documented in this encounter Visit Diagnoses Not on filedocumented in this encounter Care Teams Director Quality Assurance Relationship Specialty Start Date End Date Nolberto Nicole MD PCP - General 07/21/08 12/30/13 documented as of this encounter
--- OUTSIDE RECORDS SUMMARY | 2024-05-10 10:30 | XMS_ITS | Encounter Summary ---
Author Organization [facility] Address [address] [place] [address] [place] [address] Care Team Providers Care Health Workers Name Role Phone Nolberto Nicole MD Primary Care Provider [phone] Reason for Visit * Reason Onset Date Comments Follow-up 01/12/2009 Encounter Details Date Type Department Care Team (Late st Contact Info) Description 01/12/2009 Telephone [facility] - Rheumatology [address] [place] [address] [phone] Isidro Heredia MD [address] [place], [place] [phone] Follow-up Social History Tobacco Use Types Packs/Day [...] - 01/12/2009 11:34 AM CDT Yamileth with [employer] called in and on 01/11/09 the patient had 4 lab test that was cancel. Heended up having them done anyway does the office want the results? Was he supposed to have them done? Please call and let her know. documented in this encounter Plan of Treatment Upcoming Encounters Date Type Department Care Team (Late st Contact Info) Description 06/03/2024 1:00 PM GRATING MACHINE OPERATOR Appointment [facility] - Rheumatology [address] [place] [address] [phone] 06/03/2024 2:00 PM GRATING MACHINE OPERATOR Office Visit [facility] - Rheumatology [address] [place] [address] Gloria Smith MD [address] [place] [address] [phone] documented as of this encounter Visit Diagnoses Not on filedocumented in this encounter Care Teams Health Workers Relationship Specialty Start Date End Date Nolberto Nicole MD PCP - General 07/21/08 12/30/13 documented as of this encounter
--- OUTSIDE RECORDS SUMMARY | 2024-05-10 10:30 | XMS_ITS | Encounter Summary ---
Author Organization [facility] Address [address] [facility] [place] [address] Care Team Providers Care Dental Laboratory Supervisor Name Role Phone Nolberto Nicole MD Primary Care Provider [phone] Encounter Details Date Type Department Care Team (Late Contact Info) Description 03/08/2009 Orders Only [facility] - Rheumatology [address] [place] [phone] Isidro Heredia MD [address] [place] [address] [phone] Social History Tobacco Use Types Packs/Day Years [...] 03/14/2009 6:31 PM CSTQuick Note: Bs 104 T HOUSE MANAGER documented in this encounter Plan of Treatment Upcoming Encounters Date Type Department Care Team (Late Contact Info) Description 06/03/2024 1:00 PM GUEST HOUSE MANAGER Appointment [facility] - Rheumatology [address] [place] [address] [phone] 06/03/2024 2:00 PM GUEST HOUSE MANAGER Office Visit [facility] - Rheumatology [address] [place] [address] [phone] Gloria Smith MD [address] [place] [phone] documented as of this encounter Procedures Procedure Name Priority Date/Time Associated Diagnosis Comments CBC W AUTO DIFFERENTIAL 03/08/2009 4:28 PM GUEST HOUSE MANAGER COMPREHENSIVE METABOLIC PANEL 03/08/2009 4:28 PM GUEST HOUSE MANAGER documented in this encounter Results * (ABNORMAL) COMPREHENSIVE METABOLIC PANEL (03/08/2009 4:28 PM GUEST HOUSE MANAGER) Glucose 104(H) 65 - 99 mg/dL [...] IU/L [facility] ACCOUNT BILL 03/08/2009 4:28 PM GUEST HOUSE MANAGER 03/08/2009 9:28 PM GUEST HOUSE MANAGER Narrative Resulting Agency Comment [facility] [address] ??[facility] [phone] Isidro Heredia MD LAB - CHEMISTRY ORD ERABLES [facility] ACCOUNT BILL * (ABNORMAL) CBC W AUTO DIFFERENTIAL (03/08/2009 4:28 PM GUEST HOUSE MANAGER) WBC 8.8 4.0 - 10.5 x10E3/uL [...] AVAIL. [facility] ACCOUNT BILL 03/08/2009 4:28 PM GUEST HOUSE MANAGER 03/08/2009 9:28 PM GUEST HOUSE MANAGER Narrative [facility] ACCOUNT BILL - 03/09/2009 6:12 AM GUEST HOUSE MANAGER Additional Result Information HEMATOLOGY COMMENTS: ??BLOOD,URINE ([facility]): RESULT NOT AVAILABLE Resulting Agency Comment [facility] [address] ??[facility] [phone] Isidro Heredia MD LAB - HEMATOLOGY OR DERABLES [facility] ACCOUNT BILL documented in this encounter Visit Diagnoses Not on filedocumented in this encounter Care Teams Dental Laboratory Supervisor Relationship Specialty Start Date End Date Nolberto Nicole MD PCP - General 07/21/08 12/30/13 documented as of this encounter
--- OUTSIDE RECORDS SUMMARY | 2024-05-10 10:30 | XMS_ITS | Encounter Summary ---
Author Organization [facility] Address [address] [place] [address] [place] [address] Care Team Providers Care Real Estate Financial Analyst Name Role Phone Nolberto Nicole MD Primary Care Provider [phone] Reason for Visit * Reason Comments Rheumatoid Arthritis followup Encounter Details Date Type Department Care Team (Late st Contact Info) Description 08/24/2008 5:45 PM CDT Office Visit [facility] - Rheumatology [address] [place] [address] [phone] Isidro Heredia MD [address] [place] [address] Rheumatoid Arthritis (HCC) (Primary Dx); Osteopenia Social [...] ,TSH,hemoglobin AIc fax results to Dr. Alonso [phone] [place] [place] [facility] [place] [employer] documented in this encounter Plan of Treatment Upcoming Encounters Date Type Department Care Team (Late st Contact Info) Description 06/03/2024 1:00 PM LEATHER PIECE INSPECTOR Appointment [facility] - Rheumatology [address] [place] [address] [phone] 06/03/2024 2:00 PM LEATHER PIECE INSPECTOR Office Visit [facility] - Rheumatology [address] [place] [address] [phone] Gloria Smith MD [address] [place] [address] [phone] Scheduled Orders Name Type Priority Associated Diagnoses [...] ?<7.0 ?Healthy Adult ?4.8 - 5.9 ?(DCCT/NGSP) ?[place] [employer]'s Summary of Glycemic ?Recommendations for Adults with Diabetes: ?Hemoglobin A1c <7.0%. More stringent glycemic goals ?(A1c <6.0%) may further reduce complications at the ?cost of increased risk of hypoglycemia. BLOOD SPECIMEN / Unknown 08/24/2008 6:37 PM CDT 08/24/2008 9:56 PM CDT Narrative Resulting Agency Comment [facility] [place] [address] ??[facility] [phone] Isidro Heredia MD LAB - CHEMISTRY ORD ERABLES [facility] INSURANCE BILL * TSH (08/24/2008 6:37 PM CDT) TSH 1.487 0.450 - 4.500 uIU/mL [facility] INSURANCE BILL BLOOD SPECIMEN / Unknown 08/24/2008 6:37 PM CDT 08/24/2008 9:56 PM CDT Narrative Resulting Agency Comment [facility] [place] [address] ??[facility] [phone] Isidro Heredia MD LAB - CHEMISTRY ORD ERABLES Performing Organization Address [facility] Co de Phone Number [facility] INSURANCE BILL * URIC ACID BLOOD (08/24/2008 6:37 PM CDT) Uric Acid 5.1 2.4 - 8.2 mg/dL [facility] INSURANCE BILL BLOOD SPECIMEN / Unknown 08/24/2008 6:37 PM CDT 08/24/2008 9:56 PM CDT Narrative Resulting Agency Comment [facility] [address] ??[facility] [phone] Isidro Heredia MD LAB - CHEMISTRY ORD ERABLES Performing Organization Address City/[facility] Co de Phone Number [facility] INSURANCE BILL * T4 TOTAL (08/24/2008 6:37 PM CDT) T4 Total 8.7 4.5 - 12.0 ug/dL [facility] INSURANCE BILL BLOOD SPECIMEN / Unknown 08/24/2008 6:37 PM CDT 08/24/2008 9:56 PM CDT Narrative Resulting Agency Comment [facility] [address] ??[facility] [phone] Isidro Heredia MD LAB - CHEMISTRY ORD ERABLES [facility] INSURANCE BILL * SED RATE WESTERGREN AUTO (08/24/2008 6:37 PM CDT) Erythrocyte Sedimentation Rate Westergren 10 0 - 15 mm/hr [facility] INSURANCE BILL BLOOD SPECIMEN / Unknown 08/24/2008 6:37 PM CDT 08/24/2008 9:56 PM CDT Narrative Resulting Agency Comment [address] ??[facility] [phone] Isidro Heredia MD LAB - HEMATOLOGY OR DERABLES Performing Organization Address [facility] Co de Phone Number [facility] INSURANCE BILL * (ABNORMAL) C-REACTIVE PROTEIN (08/24/2008 6:37 PM CDT) C-Reactive Protein 5.2(H) 0.0 - 4.9 mg/L [facility] INSURANCE BILL BLOOD SPECIMEN / Unknown 08/24/2008 6:37 PM CDT 08/24/2008 9:56 PM CDT Narrative Resulting Agency Comment [address] ??[facility] [phone] Isidro Heredia MD LAB - CHEMISTRY ORD ERABLES Performing Organization Address [facility] Co de Phone Number [facility] INSURANCE [...] CDT Narrative Resulting Agency Comment [facility] [address] ??[facility] [phone] Isidro Heredia MD LAB - CHEMISTRY ORD [...] RESULT NOT AVAILABLE Resulting Agency Comment [facility] [address] ??[facility] [phone] Isidro Heredia MD LAB - HEMATOLOGY OR DERABLES [facility] INSURANCE BILL documented in this encounter Visit Diagnoses Diagnosis Rheumatoid arthritis(714.0) ([facility])- Primary Rheumatoid arthritis Osteopenia Disorder of bone and cartilage, unspecified documented in this encounter Care Teams Real Estate Financial Analyst Relationship Specialty Start Date End Date Nolberto Nicole MD PCP - General 07/21/08 12/30/13 documented as of this encounter
--- OUTSIDE RECORDS SUMMARY | 2024-05-10 10:30 | XMS_ITS | Encounter Summary ---
Author Organization [facility] Address [address] [address] Care Team Providers Care Associate Financial Planner Name Role Phone Unavailable Primary Care Provider Unavailabl e Encounter Details Date Type Department Care Team (Late st Contact Info) Description 06/22/2008 Orders Only [facility] - Family Medicine [address] [place] [address] Isidro Heredia MD [address] [place] [address] Social History Tobacco Use Types Packs/Day Years Used Date Smoking Tobacco: Never Assessed Sex and Gender Information Value Date Recorded Sex Assigned at Not on file Gender Identity Not on file Sexual Orientation Not on file documented as of this encounter Plan of Treatment Upcoming Encounters Date Type Department Care Team (Late st Contact Info) Description 06/03/2024 1:00 PM PHOTOENGRAVING ETCHER Appointment [facility] - Rheumatology [address] [place] [address] 06/03/2024 2:00 PM PHOTOENGRAVING ETCHER Office Visit [facility] - Rheumatology [address] [place] [address] Gloria Smith MD [address] [place] [phone] documented as of this encounter Procedures Procedure Name Priority Date/Time Associated Diagnosis Comments C-REACTIVE PROTEIN 06/22/2008 5: 42 PM PHOTOENGRAVING ETCHER ERYTHROCYTE SEDIMENTATION RATE 06/22/2008 5:42 PM PHOTOENGRAVING ETCHER CBC W AUTO DIFFERENTIAL 06/22/2008 5:42 PM PHOTOENGRAVING ETCHER COMPREHENSIVE METABOLIC PANEL 06/22/2008 5:42 PM PHOTOENGRAVING ETCHER documented in this encounter Results * (ABNORMAL) C-REACTIVE PROTEIN (06/22/2008 5:42 PM PHOTOENGRAVING ETCHER) C-Reactive Protein 5.5(H) 0.0 - 4.9 mg/L [facility] ACCOUNT BILL 06/22/2008 5:42 PM PHOTOENGRAVING ETCHER 06/22/2008 9:42 PM PHOTOENGRAVING ETCHER Narrative Resulting Agency Comment [facility] [place] [address] ??[facility] [phone] Isidro Heredia MD LAB - CHEMISTRY ORD ERABLES Performing Organization Address City/[facility] Co de Phone Number [facility] ACCOUNT BILL * SED RATE WESTERGREN AUTO (06/22/2008 5:42 PM PHOTOENGRAVING ETCHER) Erythrocyte Sedimentation Rate Westergren 10 0 - 15 mm/hr [facility] ACCOUNT BILL 06/22/2008 5:42 PM PHOTOENGRAVING ETCHER 06/22/2008 9:42 PM PHOTOENGRAVING ETCHER Narrative Resulting Agency Comment [facility] [place] [address] ??[facility] [phone] Isidro Heredia MD LAB - HEMATOLOGY OR DERABLES Performing Organization Address City/[facility] Co de Phone Number [facility] ACCOUNT BILL * COMPREHENSIVE METABOLIC PANEL (06/22/2008 5:42 PM PHOTOENGRAVING ETCHER) Glucose 86 65 - 99 mg/dL [facility] [...] IU/L [facility] ACCOUNT BILL 06/22/2008 5:42 PM PHOTOENGRAVING ETCHER 06/22/2008 9:42 PM PHOTOENGRAVING ETCHER Narrative Resulting Agency Comment [facility] [address] ??[facility] [id number] Isidro Heredia MD LAB - CHEMISTRY ORD ERABLES [facility] ACCOUNT BILL * (ABNORMAL) CBC W AUTO DIFFERENTIAL (06/22/2008 5:42 PM PHOTOENGRAVING ETCHER) WBC 11.3(H) 4.0 - 10.5 x10E3/uL [facility] [...] AVAIL. [facility] ACCOUNT BILL 06/22/2008 5:42 PM PHOTOENGRAVING ETCHER 06/22/2008 9:42 PM PHOTOENGRAVING ETCHER Narrative [facility] ACCOUNT BILL - 06/23/2008 8:39 AM PHOTOENGRAVING ETCHER Additional Result Information HEMATOLOGY COMMENTS: ??BLOOD,URINE ([facility]): RESULT NOT AVAILABLE Resulting Agency Comment [facility] [address] ??[facility] [phone] Isidro Heredia MD LAB - HEMATOLOGY OR DERABLES [facility] ACCOUNT BILL documented in this encounter Visit Diagnoses Not on filedocumented in this encounter
--- OUTSIDE RECORDS SUMMARY | 2024-05-10 10:30 | XMS_ITS | Encounter Summary ---
Author Organization [facility] Address [address] [facility] [place] [address] Care Team Providers Care Road Oiler Name Role Phone Nolberto Nicole MD Primary Care Provider Reason for Visit * Reason Onset Date Comments Letter 09/14/2008 Encounter Details Date Type Department Care Team (Late st Contact Info) Description 09/14/2008 Telephone [facility] - Rheumatology [address] [place], [place] [phone] Isidro Heredia MD [address] [place] [address] Letter Social History Tobacco Use Types Packs/Day [...] Spondylitis. Faxed medical records release form to [phone] for medical records release request * Telephone Encounter - [facility] - 09/14/2008 2:00 PM CDT Patient called in a needs a letter for [facility] documented in this encounter Plan of Treatment Upcoming Encounters Date Type Department Care Team (Late st Contact Info) Description 06/03/2024 1:00 PM POWER PLANT ASSISTANT Appointment [facility] - Rheumatology [address] [place] [address] [phone] 06/03/2024 2:00 PM POWER PLANT ASSISTANT Office Visit [facility] - Rheumatology [address] [place] [address] Gloria Smith MD [address] [place] [address] [phone] documented as of this encounter Visit Diagnoses Not on filedocumented in this encounter Care Teams Road Oiler Relationship Specialty Start Date End Date Nolberto Nicole MD PCP - General 07/21/08 12/30/13 documented as of this encounter
--- OUTSIDE RECORDS SUMMARY | 2024-05-10 10:30 | XMS_ITS | Encounter Summary ---
Author Organization [facility] Address [address] [place] [address] [place] [address] Care Team Providers Care Serging Machine Operator Name Role Phone Nolberto Nicole MD Primary Care Provider [phone] Reason for Visit * Reason Comments Rheumatoid Arthritis followup Encounter Details Date Type Department Care Team (Late st Contact Info) Description 07/27/2008 3:30 PM CDT Office Visit [facility] - Rheumatology [address] [place] [address] [phone] Isidro Heredia MD [address] [place], [place] [phone] Rheumatoid Arthritis (HCC) (Primary Dx) Social History [...] st Contact Info) Description 06/03/2024 1:00 PM ACTION INSTALLER Appointment [facility] - Rheumatology [address] [place] [address] 06/03/2024 2:00 PM ACTION INSTALLER Office Visit [facility] - Rheumatology [address] [place] [address] Gloria Smith MD [address] [place] [address] [phone] documented as of this encounter Procedures Procedure [...] PM CDT Narrative Resulting Agency Comment [facility] [place] [address] ??[facility] [phone] Isidro Heredia MD LAB - HEMATOLOGY OR DERABLES [facility] ACCOUNT BILL * C-REACTIVE PROTEIN (07/27/2008 4:39 PM CDT) C-Reactive Protein 3.0 0.0 - 4.9 mg/L [facility] ACCOUNT BILL BLOOD SPECIMEN / Unknown 07/27/2008 4:39 PM CDT 07/27/2008 9:25 PM CDT Narrative Resulting Agency Comment [facility] [address] ??[facility] [id number] Isidro Heredia MD LAB - CHEMISTRY ORD [...] CDT Narrative Resulting Agency Comment [facility] [address] ??[facility] [phone] Isidro Heredia MD LAB - CHEMISTRY ORD [...] RESULT NOT AVAILABLE Resulting Agency Comment [facility] [address] ??[facility] [id number] Isidro Heredia MD LAB - HEMATOLOGY OR DERABLES [facility] ACCOUNT BILL documented in this encounter Visit Diagnoses Diagnosis Rheumatoid arthritis(714.0) (HCC)- Primary Rheumatoid arthritis documented in this encounter Care Teams Serging Machine Operator Relationship Specialty Start Date End Date Nolberto Nicole MD PCP - General 07/21/08 12/30/13 documented as of this encounter
--- OUTSIDE RECORDS SUMMARY | 2024-05-10 10:30 | XMS_ITS | Encounter Summary ---
Author Organization [facility] Address [address] [place] [address] Care Team Providers Care Aerodynamics Teacher Name Role Phone Nolberto Nicole MD Primary Care Provider [phone] Encounter Details Date Type Department Care Team (Late Contact Info) Description 01/11/2009 Orders Only [facility] - Rheumatology [address] [place] [address] [phone] Isidro Heredia MD [address] [place] [address] [phone] Social History Tobacco Use Types Packs/Day Years [...] st Contact Info) Description 06/03/2024 1:00 PM SEISMIC OBSERVER Appointment [facility] - Rheumatology [address] [place] [address] [phone] 06/03/2024 2:00 PM SEISMIC OBSERVER Office Visit [facility] - Rheumatology [address] [place] [phone] Gloria Smith MD [address] [place] [phone] documented as of this encounter Procedures [...] PM CDT Narrative Resulting Agency Comment [facility] [place] [phone] [facility] ??[facility] [phone] Isidro Heredia MD LAB - CHEMISTRY ORD ERABLES [facility] ACCOUNT BILL documented in this encounter Visit Diagnoses Not on filedocumented in this encounter Care Teams Aerodynamics Teacher Relationship Specialty Start Date End Date Nolberto Nicole MD PCP - General 07/21/08 12/30/13 documented as of this encounter
--- OUTSIDE RECORDS SUMMARY | 2024-05-10 10:30 | XMS_ITS | Encounter Summary ---
Author Organization [facility] Address [address] [place] [address] [place] [address] Care Team Providers Care Tool Analyst Name Role Phone Nolberto Nicole MD Primary Care Provider [phone] Reason for Visit * Reason Comments Follow-up ra Encounter Details Date Type Department Care Team (Late st Contact Info) Description 01/11/2009 4:15 PM CDT Office Visit [facility] - Rheumatology [address] [place] [address] [phone] Isidro Heredia MD [address] [place] [address] [phone] Rheumatoid Arthritis (HCC) (Primary Dx) Social History [...] st Contact Info) Description 06/03/2024 1:00 PM MASTER SHEET CLERK Appointment [facility] - Rheumatology [address] [place] [address] 06/03/2024 2:00 PM MASTER SHEET CLERK Office Visit [facility] - Rheumatology [address] [place] [address] Gloria Smith MD [address] [place] [phone] Scheduled Orders Name Type Priority Associated Diagnoses [...] PM CDT Narrative Resulting Agency Comment [facility] [address] ??[facility] [phone] Isidro Heredia MD LAB - HEMATOLOGY OR DERABLES [facility] ACCOUNT BILL * C-REACTIVE PROTEIN (CRP) (01/11/2009 5:23 PM CDT) C-Reactive Protein 1.6 0.0 - 4.9 mg/L [facility] ACCOUNT BILL BLOOD SPECIMEN / Unknown 01/11/2009 5:23 PM CDT 01/11/2009 9:32 PM CDT Narrative Resulting Agency Comment [facility] [address] ??[facility] [id number] Isidro Heredia MD LAB - CHEMISTRY ORD [...] RESULT NOT AVAILABLE Resulting Agency Comment [facility] [address] ??[facility] [phone] Isidro Heredia MD LAB - HEMATOLOGY OR DERABLES [facility] ACCOUNT BILL documented in this encounter Visit Diagnoses Diagnosis Rheumatoid arthritis(714.0) (HCC)- Primary Rheumatoid arthritis documented in this encounter Care Teams Tool Analyst Relationship Specialty Start Date End Date Nolberto Nicole MD PCP - General 07/21/08 12/30/13 documented as of this encounter
--- OUTSIDE RECORDS SUMMARY | 2024-05-10 10:30 | XMS_ITS | Encounter Summary ---
Author Organization [facility] Address [address] [place] [address] [place] [address] Care Team Providers Care Swimming Pool Maintenance Name Role Phone Nolberto Nicole MD Primary Care Provider [phone] Reason for Visit * Reason Comments Rheumatoid Arthritis Encounter Details Date Type Department Care Team ([facility] Contact Info) Description 09/28/2008 Office Visit [facility] - Rheumatology [address] [place] [address] [phone] Isidro Heredia MD [address] [place], [place] [phone] Rheumatoid Arthritis (HCC) (Primary Dx) Social History [...] Upcoming Encounters Date Type Department Care Team ([facility] Contact Info) Description 06/03/2024 1:00 PM ASSOCIATE PROFESSOR OF ART HISTORY Appointment [facility] - Rheumatology [address] [place] [address] 06/03/2024 2:00 PM ASSOCIATE PROFESSOR OF ART HISTORY Office Visit [facility] - Rheumatology [address] [place] [address] [phone] Gloria Smith MD [address] [place] [address] [phone] documented as of this encounter Visit Diagnoses Diagnosis Rheumatoid arthritis(714.0) ([facility])- Primary Rheumatoid arthritis documented in this encounter Care Teams Swimming Pool Maintenance Relationship Specialty Start Date End Date Nolberto Nicole MD PCP - General 07/21/08 12/30/13 documented as of this encounter
--- OUTSIDE RECORDS SUMMARY | 2024-05-10 10:30 | XMS_ITS | Encounter Summary ---
Author Organization [facility] Address [address] [address] Care Team Providers Care Fleet Sales Manager Name Role Phone Unavailable Primary Care Provider Unavailabl e Encounter Details Date Type Department Care Team (Late st Contact Info) Description 05/18/2008 Orders Only [facility] - Family Medicine [address] [place] [address] Isidro Heredia MD [address] [place] [address] Social History Tobacco Use Types Packs/Day Years Used Date Smoking Tobacco: Never Assessed Sex and Gender Information Value Date Recorded Sex Assigned at Not on file Gender Identity Not on file Sexual Orientation Not on file documented as of this encounter Plan of Treatment Upcoming Encounters Date Type Department Care Team (Late st Contact Info) Description 06/03/2024 1:00 PM COMMODITY MANAGEMENT SPECIALIST Appointment [facility] - Rheumatology [address] [place] [address] 06/03/2024 2:00 PM COMMODITY MANAGEMENT SPECIALIST Office Visit [facility] - Rheumatology [address] [place] [address] Gloria Smith MD [address] [place] [phone] documented as of this encounter Procedures Procedure Name Priority Date/Time Associated Diagnosis Comments RHEUMATOID FACTOR BLOOD QUANTITATIVE 05/18/2008 5:47 PM COMMODITY MANAGEMENT SPECIALIST C-REACTIVE PROTEIN 05/18/2008 5: 47 PM COMMODITY MANAGEMENT SPECIALIST ERYTHROCYTE SEDIMENTATION RATE 05/18/2008 5:47 PM COMMODITY MANAGEMENT SPECIALIST CBC W AUTO DIFFERENTIAL 05/18/2008 5:47 PM COMMODITY MANAGEMENT SPECIALIST COMPREHENSIVE METABOLIC PANEL 05/18/2008 5:47 PM COMMODITY MANAGEMENT SPECIALIST documented in this encounter Results * C-REACTIVE PROTEIN (05/18/2008 5:47 PM COMMODITY MANAGEMENT SPECIALIST) C-Reactive Protein 1.8 0.0 - 4.9 mg/L [facility] ACCOUNT BILL 05/18/2008 5:47 PM COMMODITY MANAGEMENT SPECIALIST 05/18/2008 10:06 PM COMMODITY MANAGEMENT SPECIALIST Narrative Resulting Agency Comment [facility] [address] ??[facility] [phone] Isidro Heredia MD LAB - CHEMISTRY ORD ERABLES [facility] ACCOUNT BILL * SED RATE WESTERGREN AUTO (05/18/2008 5:47 PM COMMODITY MANAGEMENT SPECIALIST) Erythrocyte Sedimentation Rate Westergren 7 0 - 15 mm/hr [facility] ACCOUNT BILL 05/18/2008 5:47 PM COMMODITY MANAGEMENT SPECIALIST 05/18/2008 10:06 PM COMMODITY MANAGEMENT SPECIALIST Narrative Resulting Agency Comment [facility] [address] ??[facility] [phone] Isidro Heredia MD LAB - HEMATOLOGY OR DERABLES [facility] ACCOUNT BILL * RHEUMATOID FACTOR BLOOD QUANTITATIVE (05/18/2008 5:47 PM COMMODITY MANAGEMENT SPECIALIST) Rheumatoid Factor 5.5 0.0 - 13.9 IU/mL [facility] ACCOUNT BILL 05/18/2008 5:47 PM COMMODITY MANAGEMENT SPECIALIST 05/18/2008 10:06 PM COMMODITY MANAGEMENT SPECIALIST Narrative Resulting Agency Comment [facility] [address] [facility] ??[facility] [phone] Isidro Heredia MD LAB - CHEMISTRY ORD ERABLES [facility] ACCOUNT BILL * COMPREHENSIVE METABOLIC PANEL (05/18/2008 5:47 PM COMMODITY MANAGEMENT SPECIALIST) Glucose 90 65 - 99 mg/dL [facility] [...] IU/L [facility] ACCOUNT BILL 05/18/2008 5:47 PM COMMODITY MANAGEMENT SPECIALIST 05/18/2008 10:06 PM COMMODITY MANAGEMENT SPECIALIST Narrative Resulting Agency Comment [facility] [address] [facility] ??[facility] [phone] Isidro Heredia MD LAB - CHEMISTRY ORD ERABLES [facility] ACCOUNT BILL * CBC W AUTO DIFFERENTIAL (05/18/2008 5:47 PM COMMODITY MANAGEMENT SPECIALIST) WBC 10.5 4.0 - 10.5 x10E3/uL [facility] [...] AVAIL. [facility] ACCOUNT BILL 05/18/2008 5:47 PM COMMODITY MANAGEMENT SPECIALIST 05/18/2008 10:06 PM COMMODITY MANAGEMENT SPECIALIST Narrative [facility] ACCOUNT BILL - 05/19/2008 9:28 AM COMMODITY MANAGEMENT SPECIALIST Additional Result Information HEMATOLOGY COMMENTS: ??BLOOD,URINE ([facility]): RESULT NOT AVAILABLE Resulting Agency Comment [facility] [address] ??[facility] [phone] Isidro Heredia MD LAB - HEMATOLOGY OR DERABLES [facility] ACCOUNT BILL documented in this encounter Visit Diagnoses Not on filedocumented in this encounter
--- OUTSIDE RECORDS SUMMARY | 2024-05-10 10:30 | XMS_ITS | Encounter Summary ---
Author Organization [facility] Address [address] [place] [address] Care Team Providers Care Dermatology Nurse Name Role Phone Unavailable Primary Care Provider Unavailabl e Encounter Details Date Type Department Care Team (Late st Contact Info) Description 03/30/2008 Orders Only [facility] - Family Medicine [address] [place] [address] Isidro Heredia MD [address] [place] [address] Social History Tobacco Use Types Packs/Day Years Used Date Smoking Tobacco: Never Assessed Sex and Gender Information Value Date Recorded Sex Assigned at Not on file Gender Identity Not on file Sexual Orientation Not on file documented as of this encounter Plan of Treatment Upcoming Encounters Date Type Department Care Team (Late st Contact Info) Description 06/03/2024 1:00 PM BASIN FINISH OPERATOR TIG WELDER Appointment [facility] - Rheumatology [address] [place] [address] 06/03/2024 2:00 PM BASIN FINISH OPERATOR TIG WELDER Office Visit [facility] - Rheumatology [address] [place] [address] Gloria Smith MD [address] [place] [phone] documented as of this encounter Procedures Procedure Name Priority Date/Time Associated Diagnosis Comments C-REACTIVE PROTEIN 03/30/2008 4: 45 PM BASIN FINISH OPERATOR TIG WELDER ERYTHROCYTE SEDIMENTATION RATE 03/30/2008 4:45 PM BASIN FINISH OPERATOR TIG WELDER CBC W AUTO DIFFERENTIAL 03/30/2008 4:45 PM BASIN FINISH OPERATOR TIG WELDER COMPREHENSIVE METABOLIC PANEL 03/30/2008 4:45 PM BASIN FINISH OPERATOR TIG WELDER documented in this encounter Results * C-REACTIVE PROTEIN (03/30/2008 4:45 PM BASIN FINISH OPERATOR TIG WELDER) C-Reactive Protein 3.2 0.0 - 4.9 mg/L [facility] ACCOUNT BILL 03/30/2008 4:45 PM BASIN FINISH OPERATOR TIG WELDER 03/30/2008 10:25 PM BASIN FINISH OPERATOR TIG WELDER Narrative Resulting Agency Comment [facility] [address] ??[facility] access hospital [phone] Isidro Heredia MD LAB - CHEMISTRY ORD ERABLES Performing Organization Address [facility] de Phone Number [facility] ACCOUNT BILL * SED RATE WESTERGREN AUTO (03/30/2008 4:45 PM BASIN FINISH OPERATOR TIG WELDER) Erythrocyte Sedimentation Rate Westergren 10 0 - 15 mm/hr [facility] ACCOUNT BILL 03/30/2008 4:45 PM BASIN FINISH OPERATOR TIG WELDER 03/30/2008 10:25 PM BASIN FINISH OPERATOR TIG WELDER Narrative Resulting Agency Comment [facility] [address] ??Critical access hospital [phone] Isidro Heredia MD LAB - HEMATOLOGY OR DERABLES Performing Organization Address City/[facility] Co de Phone Number [facility] ACCOUNT BILL * COMPREHENSIVE METABOLIC PANEL (03/30/2008 4:45 PM BASIN FINISH OPERATOR TIG WELDER) Glucose 94 65 - 99 mg/dL [facility] [...] IU/L [facility] ACCOUNT BILL 03/30/2008 4:45 PM BASIN FINISH OPERATOR TIG WELDER 03/30/2008 10:25 PM BASIN FINISH OPERATOR TIG WELDER Narrative Resulting Agency Comment [facility] [address] ??Critical access hospital [phone] Isidro Heredia MD LAB - CHEMISTRY ORD ERABLES [facility] ACCOUNT BILL * CBC W AUTO DIFFERENTIAL (03/30/2008 4:45 PM BASIN FINISH OPERATOR TIG WELDER) WBC 8.9 4.0 - 10.5 x10E3/uL [facility] ACCOUNT BILL Comment: Effective April 06, 2008, the pediatric reference intervals ??will be changing on all result codes that are included in ??CBC With Differential/Platelet(429782). RBC 4.57 4.10 - 5.60 x10E6/uL [facility] [...] AVAIL. [facility] ACCOUNT BILL 03/30/2008 4:45 PM BASIN FINISH OPERATOR TIG WELDER 03/30/2008 10:25 PM BASIN FINISH OPERATOR TIG WELDER Narrative [facility] ACCOUNT BILL - 03/31/2008 9:36 AM BASIN FINISH OPERATOR TIG WELDER Additional Result Information HEMATOLOGY COMMENTS: ??BLOOD,URINE ([facility]): RESULT NOT AVAILABLE Resulting Agency Comment [facility] [address] ??Critical access hospital [phone] Isidro Heredia MD LAB - HEMATOLOGY OR DERABLES [facility] ACCOUNT BILL documented in this encounter Visit Diagnoses Not on filedocumented in this encounter
--- OUTSIDE RECORDS SUMMARY | 2024-05-10 10:30 | XMS_ITS | Encounter Summary ---
Author Organization [facility] Address [address] [place] [address] Care Team Providers Care Lead Driver Name Role Phone Unavailable Primary Care Provider Unavailabl e Encounter Details Date Type Department Care Team (Late st Contact Info) Description 04/20/2008 Orders Only [facility] - Family Medicine [address] [place] [address] Isidro Heredia MD [address] [place] [address] Social History [...] Contact Info) Description 06/03/2024 1:00 PM DISTRIBUTION TECH Appointment [facility] - Rheumatology [address] [place] [address] 06/03/2024 2:00 PM DISTRIBUTION TECH Office Visit [facility] - Rheumatology [address] [place] [address] Gloria Smith MD [address] [place] [phone] documented as of this encounter Procedures Procedure Name Priority Date/Time Associated Diagnosis Comments C-REACTIVE PROTEIN 04/20/2008 5: 32 PM DISTRIBUTION TECH ERYTHROCYTE SEDIMENTATION RATE 04/20/2008 5:32 PM DISTRIBUTION TECH CBC W AUTO DIFFERENTIAL 04/20/2008 5:32 PM DISTRIBUTION TECH COMPREHENSIVE METABOLIC PANEL 04/20/2008 5:32 PM DISTRIBUTION TECH documented in this encounter Results * C-REACTIVE PROTEIN (04/20/2008 5:32 PM DISTRIBUTION TECH) C-Reactive Protein 1.9 0.0 - 4.9 mg/L [facility] ACCOUNT BILL 04/20/2008 5:32 PM DISTRIBUTION TECH 04/20/2008 9:26 PM DISTRIBUTION TECH Narrative Resulting Agency Comment [facility] [address] ??Counts include 234 beds at the [facility] [phone] Isidro Heredia MD LAB - CHEMISTRY ORD ERABLES Performing Organization Address [facility] Co de Phone Number [facility] ACCOUNT BILL * SED RATE WESTERGREN AUTO (04/20/2008 5:32 PM DISTRIBUTION TECH) Erythrocyte Sedimentation Rate Westergren 6 0 - 15 mm/hr [facility] ACCOUNT BILL 04/20/2008 5:32 PM DISTRIBUTION TECH 04/20/2008 9:26 PM DISTRIBUTION TECH Narrative Resulting Agency Comment [facility] [address] ??Counts include 234 beds at the [facility] [phone] Isidro Heredia MD LAB - HEMATOLOGY OR DERABLES Performing Organization Address City/[facility] Co de Phone Number [facility] ACCOUNT BILL * COMPREHENSIVE METABOLIC PANEL (04/20/2008 5:32 PM DISTRIBUTION TECH) Glucose 94 65 - 99 mg/dL [facility] [...] IU/L [facility] ACCOUNT BILL 04/20/2008 5:32 PM DISTRIBUTION TECH 04/20/2008 9:26 PM DISTRIBUTION TECH Narrative Resulting Agency Comment [facility] [address] ??Counts include 234 beds at the [facility] [phone] Isidro Heredia MD LAB - CHEMISTRY ORD ERABLES [facility] ACCOUNT BILL * (ABNORMAL) CBC W AUTO DIFFERENTIAL (04/20/2008 5:32 PM DISTRIBUTION TECH) WBC 9.4 4.0 - 10.5 x10E3/uL [facility] [...] AVAIL. [facility] ACCOUNT BILL 04/20/2008 5:32 PM DISTRIBUTION TECH 04/20/2008 9:26 PM DISTRIBUTION TECH Narrative [facility] ACCOUNT BILL - 04/21/2008 8:27 AM DISTRIBUTION TECH Additional Result Information HEMATOLOGY COMMENTS: ??BLOOD,URINE ([facility]): RESULT NOT AVAILABLE Resulting Agency Comment [facility] [address] ??Counts include 234 beds at the [facility] [phone] Isidro Heredia MD LAB - HEMATOLOGY OR DERABLES [facility] ACCOUNT BILL documented in this encounter Visit Diagnoses Not on filedocumented in this encounter
--- OUTSIDE RECORDS SUMMARY | 2024-05-10 10:30 | XMS_ITS | Encounter Summary ---
Author Organization [facility] Address [address] [place] [address] [place] [address] Care Team Providers Care Typesetter Perforator Operator Name Role Phone Nolberto Nicole MD Primary Care Provider Reason for Visit * Reason Comments Follow-up ra Encounter Details Date Type Department Care Team (Late st Contact Info) Description 03/08/2009 4:00 PM REGISTRATION SPECIALIST Office Visit [facility] - Rheumatology [address] [place] [phone] Isidro Heredia MD [address] [place], [place] [id number] Rheumatoid Arthritis (HCC) (Primary Dx); Osteopenia Social [...] Comments Blood Pressure 128/80 03/08/2009 4:03 PM REGISTRATION SPECIALIST Pulse 92 03/08/2009 4:03 PM REGISTRATION SPECIALIST Temperature - - Respiratory Rate - - Oxygen Saturation - - Inhaled Oxygen Concentration - - Weight 108.9 kg (240 lb) 03/08/2009 4:03 PM REGISTRATION SPECIALIST Height - - Body Mass Index 34.44 02/08/2009 5:43 PM CDT documented in this encounter Progress Notes * Rea Hagan MA - 06/17/2009 11:47 AM CSTQuick Note: Sent lab letter to pt re labs STRATION SPECIALIST * Isidro Heredia MD - 06/13/2009 7:57 AM CSTQuick Note: Mtx ok STRATION SPECIALIST * Rea Hagan MA - 03/18/2009 4:48 PM CSTQuick Note: Sent letter STRATION SPECIALIST * Isidro Heredia MD - 03/14/2009 6:32 PM CSTQuick Note: Mtx ok STRATION SPECIALIST * Isidro Heredia MD - 03/08/2009 4:43 [...] Follow up in office in 4 weeks STRATION SPECIALIST * Rea Hagan MA - 03/08/2009 4:04 PM CST Chief Complaint Patient presents with ??? Follow-up ra BP 128/80 Pulse 92 Wt 108.863 kg (240 lb) STRATION SPECIALIST documented in this encounter Plan of Treatment Upcoming Encounters Date Type Department Care Team (Late st Contact Info) Description 06/03/2024 1:00 PM REGISTRATION SPECIALIST Appointment [facility] - Rheumatology [address] [place] [address] 06/03/2024 2:00 PM REGISTRATION SPECIALIST Office Visit [facility] - Rheumatology [address] [place] [address] Gloria Smith MD [address] [place] [phone] documented as of this encounter Procedures Procedure Name Priority Date/Time Associated Diagnosis Comments CBC W AUTO DIFFERENTIAL Routine 06/07/2009 5:41 PM REGISTRATION SPECIALIST Rheumatoid Arthritis (HCC) COMPREHENSIVE METABOLIC PANEL Routine 06/07/2009 5:41 PM REGISTRATION SPECIALIST Rheumatoid Arthritis (HCC) C-REACTIVE PROTEIN Routine 03/08/2009 4: 28 PM REGISTRATION SPECIALIST Rheumatoid Arthritis (HCC) ERYTHROCYTE SEDIMENTATION RATE Routine 03/08/2009 4:28 PM REGISTRATION SPECIALIST Rheumatoid Arthritis (HCC) documented in this encounter Results * COMPREHENSIVE METABOLIC PANEL (06/07/2009 5:41 PM REGISTRATION SPECIALIST) Glucose 90 65 - 99 mg/dL [...] BLOOD SPECIMEN / Unknown 06/07/2009 5:41 PM REGISTRATION SPECIALIST 06/07/2009 9:20 PM REGISTRATION SPECIALIST Narrative Resulting Agency Comment [facility] [address] ??[facility] [phone] Isidro Heredia MD LAB - CHEMISTRY ORD ERABLES [facility] ACCOUNT BILL * CBC W AUTO DIFFERENTIAL (06/07/2009 5:41 PM REGISTRATION SPECIALIST) WBC 10.4 4.0 - 10.5 x10E3/uL [facility] [...] BLOOD SPECIMEN / Unknown 06/07/2009 5:41 PM REGISTRATION SPECIALIST 06/07/2009 9:20 PM REGISTRATION SPECIALIST Narrative [facility] ACCOUNT BILL - 06/08/2009 7:22 AM REGISTRATION SPECIALIST Additional Result Information IMMATURE CELLS ([facility]): RESULT NOT AVAILABLE IMMATURE GRANULOCYTES ([facility]): RESULT NOT AVAILABLE IMMATURE GRANS (ABS) ([facility]): RESULT NOT AVAILABLE NRBC ([facility]): RESULT NOT AVAILABLE HEMATOLOGY COMMENTS: ??BLOOD,URINE ([facility]): RESULT NOT AVAILABLE Resulting Agency Comment [facility] [place] [address] ??[facility] [phone] Isidro Heredia MD LAB - HEMATOLOGY OR DERABLES Performing Organization Address City/[facility]/ZIP Co de Phone Number [facility] ACCOUNT BILL * SED RATE WESTERGREN AUTO (03/08/2009 4:28 PM REGISTRATION SPECIALIST) Erythrocyte Sedimentation Rate Westergren 7 0 - 15 mm/hr [facility] ACCOUNT BILL BLOOD SPECIMEN / Unknown 03/08/2009 4:28 PM REGISTRATION SPECIALIST 03/08/2009 9:28 PM REGISTRATION SPECIALIST Narrative Resulting Agency Comment [facility] [place] [address] ??[facility] [phone] Isidro Heredia MD LAB - HEMATOLOGY OR DERABLES Performing Organization Address City/[facility] Co de Phone Number [facility] ACCOUNT BILL * C-REACTIVE PROTEIN (03/08/2009 4:28 PM REGISTRATION SPECIALIST) C-Reactive Protein 2.4 0.0 - 4.9 mg/L [facility] ACCOUNT BILL BLOOD SPECIMEN / Unknown 03/08/2009 4:28 PM REGISTRATION SPECIALIST 03/08/2009 9:28 PM REGISTRATION SPECIALIST Narrative Resulting Agency Comment [facility] [place] [address] ??[facility] [phone] Isidro Heredia MD LAB - CHEMISTRY ORD ERABLES Performing Organization Address City/[facility] Co de Phone Number [facility] ACCOUNT BILL documented in this encounter Visit Diagnoses Diagnosis Rheumatoid arthritis(714.0) ([facility])- Primary Rheumatoid arthritis Osteopenia Disorder of bone and cartilage, unspecified documented in this encounter Care Teams Typesetter Perforator Operator Relationship Specialty Start Date End Date Nolberto Nicole MD PCP - General 07/21/08 12/30/13 documented as of this encounter
--- OUTSIDE RECORDS SUMMARY | 2024-05-10 10:30 | XMS_ITS | Encounter Summary ---
Author Organization [facility] Address [address] [place] [address] Care Team Providers Care Film Washer Name Role Phone Nolberto Nicole MD Primary Care Provider [phone] Encounter Details Date Type Department Care Team (Late Contact Info) Description 08/24/2008 Orders Only [facility] - Rheumatology [address] [place] [address] Isidro Heredia MD [address] [place] [address] Social History Tobacco Use Types Packs/Day [...] (Late Contact Info) Description 06/03/2024 1:00 PM STAVE LOG RIPSAW OPERATOR Appointment [facility] - Rheumatology [address] [place] [address] 06/03/2024 2:00 PM STAVE LOG RIPSAW OPERATOR Office Visit [facility] - Rheumatology [address] [place] [address] Gloria Smith MD [address] [place] [phone] documented as of this encounter Procedures [...] CDT Narrative Resulting Agency Comment [facility] [address] ??[facility] [phone] Isidro Heredia MD LAB - CHEMISTRY ORD ERABLES Performing Organization Address City/[facility] Co de Phone Number [facility] INSURANCE BILL * RHEUMATOID FACTOR BLOOD QUANTITATIVE (08/24/2008 6:37 PM CDT) Pathologist [facility] Rheumatoid Factor 5.0 0.0 - 13.9 IU/mL [facility] INSURANCE BILL 08/24/2008 6:37 PM CDT 08/24/2008 9:56 PM CDT Narrative Resulting Agency Comment [facility] [place] [address] [facility] ??[facility] [phone] Isidro Heredia MD LAB - CHEMISTRY ORD ERABLES [facility] INSURANCE BILL documented in this encounter Visit Diagnoses Not on filedocumented in this encounter Care Teams Film Washer Relationship Specialty Start Date End Date Nolberto Nicole MD PCP - General 07/21/08 12/30/13 documented as of this encounter
--- OUTSIDE RECORDS SUMMARY | 2024-05-10 10:30 | XMS_ITS | Encounter Summary ---
Author Organization [facility] Address [address] [place] [address] [place] [address] Care Team Providers Care Rn Oncology Research Name Role Phone Nolberto Nicole MD Primary Care Provider [phone] Reason for Visit * Reason Comments Rheumatoid Arthritis followup Encounter Details Date Type Department Care Team (Late st Contact Info) Description 10/12/2008 5:15 PM CDT Office Visit [facility] - Rheumatology [address] [place] [phone] Isidro Heredia MD [address] [place] [address] Rheumatoid Arthritis (HCC) (Primary Dx); GERD (Gastroesophageal [...] st Contact Info) Description 06/03/2024 1:00 PM BANKING SERVICES CLERK Appointment [facility] - Rheumatology [address] [place] [address] 06/03/2024 2:00 PM BANKING SERVICES CLERK Office Visit [facility] - Rheumatology [address] [place] [phone] Gloria Smith MD [address] [place] [address] [place] [phone] Scheduled Orders Name Type Priority Associated Diagnoses [...] PM CDT Narrative Resulting Agency Comment [facility] [place] [id number] [facility] ??[facility] [phone] Isidro Heredia MD LAB - HEMATOLOGY OR DERABLES [facility] ACCOUNT BILL * (ABNORMAL) C-REACTIVE PROTEIN (10/12/2008 6:16 PM CDT) C-Reactive Protein 12.9(H) 0.0 - 4.9 mg/L [facility] ACCOUNT BILL BLOOD SPECIMEN / Unknown 10/12/2008 6:16 PM CDT 10/12/2008 9:22 PM CDT Narrative Resulting Agency Comment [facility] [place] [address] [facility] ??[facility] [phone] Isidro Heredia MD LAB - CHEMISTRY ORD [...] Narrative Resulting Agency Comment [facility] [place] [address] [facility] ??[facility] [phone] Isidro Heredia MD LAB - CHEMISTRY ORD ERABLES [facility] ACCOUNT BILL documented in this encounter Visit Diagnoses Diagnosis Rheumatoid arthritis(714.0) (HCC)- Primary Rheumatoid arthritis GERD (gastroesophageal reflux disease) Esophageal reflux Osteopenia Disorder of bone and cartilage, unspecified documented in this encounter Care Teams Rn Oncology Research Relationship Specialty Start Date End Date Nolberto Nicole MD PCP - General 07/21/08 12/30/13 documented as of this encounter
--- OUTSIDE RECORDS SUMMARY | 2024-05-10 10:32 | XMS_ITS | Continuity of Care Document ---
Author Organization [facility] Address [address] [place] [address] [place] [address] Phone Care Team Providers Care Typesetting Machine Tender Name Role Phone Lupis Pena Unavailable Unavailable Procedures Procedure Date Visual Field Examination(s) Eye Exam & Treatment Visual Field Examination(s) Office/outpatient Visit, Est Visual Field Examination(s) Eye Exam & Treatment Refraction Advance Directives Directive Yes / No Effective Date File Name No Information Encounters Encounter Description Practice Location Reason(s) For Visit Diagnoses Date Provider Providers Copied on Encounter [facility], [address] [place] [address] [address], [place], [place], [id number], tel:[phone] [facility] No Information 0 Becky Baugh. [address] [facility] , [address], [place], [address], [place]. tel:[phone] Referring Provider: Lupis Palafox, [address], [place], [place], [facility]. tel:[phone] [facility], [address] [place] [address] [address], [place], [place], [id number], tel:[phone] [facility] No Information Jun- 9-201 0 Becky Baugh. [address] [facility] [address] , [address], [place], [address], [place]. tel:[phone] [facility], [id number] [place] [address] [address], [place], [place], [id number], tel:[phone] [facility] No Information b-0 8-201 0 Becky Baugh. [address] , [address], [place], [place], [facility], . tel:[phone] Referring Provider: Lupis Palafox, [address], [place], [facility]. tel:[phone] Office/outpat ient Visit, [facility], [id number] [place] [address] [address], [place], [place], [id number], tel:[phone] [facility] No Information 9 Becky Hoff [address] [facility] , [address], [place], [place], [facility], . tel:[phone] [facility], [address] [place] [address] [address], [place], [place], [id number], tel:[phone] [facility] No Information Mar-0 2-200 8 Becky Baugh. [address] [facility] , [address], [place], [place], [facility], . tel:[phone] Referring Provider: Lupis Palafox, [address], [place], [facility]. tel:[phone] [facility], [address] [place] [address] [address], [place], [place], [id number], tel:[phone] [facility] No Information 200 8 Becky Baugh. [address] [facility] , [address], [place], [place], [facility], . tel:[phone] Family History Family Member Type Diagnosis Age At Onset No Information Payers Payer name Insurance type Covered alliance party ID Authoriza tion(s) No Information Social [...]
--- OUTSIDE RECORDS SUMMARY | 2024-05-10 10:32 | XMS_ITS | Patient Health Record ---
Author Organization [employer] [facility] Address [address] [facility] [place] [address] Care Team Providers Care It Security Consultant Name Role Phone NO PCP, NONE Primary [...] Coverage End Date [place]IC[place] [address] [place] [phone] [id number] Chalino Deng Self - patient is the insured [facility]- [address] [place] [address] [phone] [id number] Chalino Deng Self - patient is the insured MEDICAL (GENERAL) HISTORY Medical History History ICD Code History of : High blood pressure* rheumatoid arthritis Surgical History Surgery Date(Month/Year) cataract removal Hospitalization History Reason Date(Month/Year) See Surgical History
--- OUTSIDE RECORDS SUMMARY | 2024-05-10 18:42 | XMS_ITS | Referral Summary ---
Author Organization [facility] Address [address] [address] Care Team Providers Care National Coverage Specialist Name Role Phone Isidro Heredia MD Unavailable [phone] Tomas Hyman MD Primary Care Provider [phone] Source Comments [facility],non-owned Affiliates and Associated Physician Practices is amultiple site organization consisting of ambulatory clinics and hospital sitesin [place], [place], [place] and [place]. This disclosure is being madepursuant to the Care Everywhere program and may not contain all information available regarding this patient. Last updated 18.[facility] Encounters Date Type Department Care Team Description 04/04/2024 9:45 AM COMPENSATION AND BENEFITS ANALYST - 04/04/2024 11:59 PM COMPENSATION AND BENEFITS ANALYST Hospital Encounter [facility] Rheumatology [address] [place] [address] Gloria Smith MD Rheumatology Discharge Disposition: Home or Self Care 02/16/2024 Refill [facility] Rheumatology [address] [place] [address] Gloria Smith MD MEDICATION REFILL 02/08/2024 11:40 AM CDT Office Visit [facility] Rheumatology [address] [place] [address] Gloria Smith MD Rheumatoid arthritis of [...] medication agreement signed 11/06/2012 Overview (11/06/2012): In sales assistant entertainment and media dated 10/14/12 Chronic pain syndrome 12/11/2011 Subacromial bursitis 09/04/2011 Anemia 08/30/2009 Osteopenia 08/24/2008 Overview (09/14/2014): Start date 08/13/2007 CT Bone Densitometry GERD (gastroesophageal reflux disease) 9 [facility] with negative rheumatoid factor 07/21/2008 Overview (03/07/2015): Dx start date 06/2004, Remicade 10/2004-08/02/2005 inadequate response, Orencia 09/13/2005-11/22/2005 inadequate response, Rituxan 12/06/2005-05/01/2006, Humira 08/13/2006, Methotrexate 08/2004- 02/08/2013 , Xray hands 2004 - shows scattered tiny erosions in MCP joints. Immunizations Name Administration Dates Next Due [email or web address] primary monoval ent 12+ yr 0.3mL Purple [...] Comments Blood Pressure 144/83 04/04/2024 10:23 AM COMPENSATION AND BENEFITS ANALYST Pulse 82 04/04/2024 10:23 AM COMPENSATION AND BENEFITS ANALYST Temperature 36.8 ??C (98.2 ??F) 04/04/2024 1 0:23 AM COMPENSATION AND BENEFITS ANALYST Respiratory Rate 16 09/18/2023 3:34 PM CDT Oxygen Saturation 100% 01/30/2023 10: 56 AM CDT Inhaled Oxygen Concentration - - Weight 106.4 kg (234 lb 9.6 oz) 024 10:23 AM COMPENSATION AND BENEFITS ANALYST Height 177.8 cm (5' 10 ) 02/08/2024 11: 48 AM CDT Body Mass Index 33.66 02/08/2024 11:48 AM CDT Plan of Treatment Upcoming Encounters Date Type Department Care Team (Late st Contact Info) Description 06/03/2024 1:00 PM COMPENSATION AND BENEFITS ANALYST Appointment [facility] - Rheumatology [address] [place] [address] 06/03/2024 2:00 PM COMPENSATION AND BENEFITS ANALYST Office Visit [facility] - Rheumatology [address] [place] [address] Gloria Smith MD [address] [place] [phone] Procedures Procedure Name Priority Date/Time Associated [...] 01/29/2024 6:08 PM CDT Performed at: ?? [place] [address] [address] [place], [place] [id number] Prenatal Genetic Counselor: Sanchez [facility], Phone: ??[phone] Gloria Smith MD LAB - CHEMISTRY MARII ARAUJO [facility] INSURANCE BILL [address] [place] [address] * HEPATITIS SCREEN ACUTE ([facility]) (02/10/2022 9:46 [...] Comment Lab Testing performed at: [facility] [address] [address] ?? Ziyad PENNY [id number] Gloria Smith MD LAB - CHEMISTRY MARII ARAUJO [facility] INSURANCE BILL [address] [place] [address] from Last 3 Months or Most Recently Relevant to Health Maintenance Administered Medications Care Teams National Coverage Specialist Relationship Specialty Start Date End Date Tomas Hyman MD [address] [place] [address] PCP - General Family Medicine 09/05/18 Isidro Heredia MD Rheumatology 02/09/11
--- OUTSIDE RECORDS SUMMARY | 2024-05-10 18:42 | XMS_ITS | Patient Health Summary ---
Author Organization [facility] Address [address] [place] [address] Care Team Providers Care Clamp Operator Name Role Phone Isidro Heredia MD Unavailable [phone] Tomas Hyman MD Primary Care Provider [phone] Note from [facility],non-owned Affiliates and Associated Physician Practices is amultiple site organization consisting of ambulatory clinics and hospital sitesin [place], [place]. This disclosure is being madepursuant to the Care Everywhere program and may not contain all information available regarding this patient. Last updated 18.[facility] Allergies * Hydroxychloroquine(Eye Discomfort) -High Criticality * [...] 1 Tab by mouth once daily * Jmgfkqrnmcy-Vgaukvxzw-Gpc C-Mn (GLUCOSAMINE CHONDR 1500 COMPLX PO) Take [...] mg by mouth 2 times daily * kpmzldfdclc-dkth-yqueaqmv, PF, 0.5-1-0.5 % SOLN Instill 1 drop [...] (gastroesophageal reflux disease) 9 [facility] with negative rheumatoid factor 07/21/2008 Immunizations [...] Comments Blood Pressure 144/83 04/04/2024 10:23 AM CAR ELECTRONICS INSTALLER Pulse 82 04/04/2024 10:23 AM CAR ELECTRONICS INSTALLER Temperature 36.8 ??C (98.2 ??F) 04/04/2024 1 0:23 AM CAR ELECTRONICS INSTALLER Respiratory Rate 16 09/18/2023 3:34 PM CDT Oxygen Saturation 100% 01/30/2023 10: 56 AM CDT Inhaled Oxygen Concentration - - Weight 106.4 kg (234 lb 9.6 oz) 024 10:23 AM CAR ELECTRON[employer] INSTALLER Height 177.8 cm (5' 10 ) 02/08/2024 [...] of multiple sites with negative rheumatoid factor ([facility]) * ERYTHROCYTE SEDIMENTATION RATE(Performed 06/14/2015) Performed for Rheumatoid arthritis of multiple sites with negative rheumatoid factor ([facility]) * COMPREHENSIVE METABOLIC PANEL(Performed 06/14/2015) Performed for Rheumatoid arthritis of multiple sites with negative rheumatoid factor ([facility]) * CBC W AUTO DIFFERENTIAL(Performed 06/14/2015) Performed for Rheumatoid arthritis of multiple sites with negative rheumatoid factor ([facility]) * ERYTHROCYTE SEDIMENTATION RATE(Performed 04/07/2015) Performed for Rheumatoid arthritis of multiple 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 factor ([facility]) * C-REACTIVE PROTEIN(Performed 04/07/2015) Performed for Rheumatoid arthritis of multiple 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 factor ([facility]) * COMPREHENSIVE METABOLIC PANEL(Performed 04/07/2015) Performed for Rheumatoid arthritis of multiple 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 factor ([facility]) * CBC W AUTO DIFFERENTIAL(Performed 04/07/2015) Performed for Rheumatoid arthritis of multiple 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 factor ([facility]) * LIPID PROFILE W TCHOL/HDL(Performed 03/04/2015) Performed for Rheumatoid arthritis(714.0) ([facility]) * ERYTHROCYTE SEDIMENTATION RATE(Performed 03/04/2015) Performed for Rheumatoid arthritis(714.0) ([facility]) * COMPREHENSIVE METABOLIC PANEL(Performed 03/04/2015) Performed for Rheumatoid arthritis(714.0) ([facility]) * CBC W AUTO DIFFERENTIAL(Performed 03/04/2015) Performed for Rheumatoid arthritis(714.0) ([facility]) * ERYTHROCYTE SEDIMENTATION RATE(Performed 01/07/2015) Performed for Rheumatoid arthritis(714.0) ([facility]) * COMPREHENSIVE METABOLIC PANEL(Performed 01/07/2015) Performed for Rheumatoid arthritis(714.0) ([facility]) * CBC W AUTO DIFFERENTIAL(Performed 01/07/2015) Performed for Rheumatoid arthritis(714.0) ([facility]) * PAIN MANAGEMENT PROCEDURE TIME(Performed 12/29/2014) Performed for Displacement of lumbar intervertebral disc without myelopathy, Thoracic or lumbosacral neuritis or radiculitis, unspecified * PAIN MANAGEMENT PROCEDURE TIME(Performed 12/21/2014) Performed for Displacement of lumbar intervertebral disc without myelopathy, Thoracic or lumbosacral neuritis or radiculitis, unspecified * ERYTHROCYTE SEDIMENTATION RATE(Performed 11/05/2014) Performed for Rheumatoid arthritis(714.0) ([facility]) * COMPREHENSIVE METABOLIC PANEL(Performed 11/05/2014) Performed for Rheumatoid arthritis(714.0) ([facility]) * CBC W AUTO DIFFERENTIAL(Performed 11/05/2014) Performed for Rheumatoid arthritis(714.0) ([facility]) * RHEUMATOID FACTOR BLOOD QUANTITATIVE(Performed 08/12/2014) Performed for Rheumatoid arthritis(714.0) ([facility]) * ERYTHROCYTE SEDIMENTATION RATE(Performed 08/12/2014) Performed for Rheumatoid arthritis(714.0) ([facility]) * C-REACTIVE PROTEIN(Performed 08/12/2014) Performed for Rheumatoid arthritis(714.0) ([facility]) * COMPREHENSIVE METABOLIC PANEL(Performed 08/12/2014) Performed for Rheumatoid arthritis(714.0) ([facility]) * CYCLIC CITRUL PEPTIDE ANTIBODY IGG/IGA (CCP)(Performed 08/12/2014) Performed for Rheumatoid arthritis(714.0) ([facility]) * CBC W AUTO DIFFERENTIAL(Performed 08/12/2014) Performed for Rheumatoid arthritis(714.0) ([facility]) * KAMI STAINING PATTERNS REFLEXED(Performed 08/12/2014) Performed for Rheumatoid arthritis(714.0) ([facility]) * ROSA BLOOD SCREEN W/REFLEX TITER(Performed 08/12/2014) Performed for Rheumatoid arthritis(714.0) ([facility]) * CYCLIC CITRUL PEPTIDE ANTIBODY IGG/IGA (CCP)(Performed 08/12/2014) Performed for Rheumatoid arthritis(714.0) ([facility]) * C-REACTIVE PROTEIN(Performed 08/12/2014) Performed for Rheumatoid arthritis(714.0) ([facility]) * COMPREHENSIVE METABOLIC PANEL(Performed 08/12/2014) Performed for Rheumatoid arthritis(714.0) ([facility]) * CBC W AUTO DIFFERENTIAL(Performed 08/12/2014) Performed for Rheumatoid arthritis(714.0) ([facility]) * XR HAND BILAT 1VW(Performed 08/12/2014) Performed for Rheumatoid arthritis(714.0) ([facility]) * ERYTHROCYTE SEDIMENTATION RATE(Performed 06/08/2014) Performed for [...] C-REACTIVE PROTEIN(Performed 10/09/2011) Performed for Rheumatoid arthritis ([facility]) * COMPREHENSIVE METABOLIC PANEL(Performed 10/09/2011) Performed for Rheumatoid arthritis ([facility]) * CBC W AUTO DIFFERENTIAL(Performed 10/09/2011) Performed for Rheumatoid arthritis ([facility]) * ERYTHROCYTE SEDIMENTATION RATE(Performed 09/04/2011) Performed for Rheumatoid arthritis ([facility]) * C-REACTIVE PROTEIN(Performed 09/04/2011) Performed for Rheumatoid arthritis ([facility]) * COMPREHENSIVE METABOLIC PANEL(Performed 09/04/2011) Performed for Rheumatoid arthritis ([facility]) * CBC W AUTO DIFFERENTIAL(Performed 09/04/2011) Performed for Rheumatoid arthritis ([facility]) * C-REACTIVE PROTEIN(Performed 05/15/2011) Performed for Rheumatoid arthritis ([facility]) * LIPID PROFILE W LDL/HDL RATIO(Performed 05/15/2011) Performed for Hyperlipidemia * ERYTHROCYTE SEDIMENTATION RATE(Performed 05/15/2011) Performed for Rheumatoid arthritis ([facility]) * COMPREHENSIVE METABOLIC PANEL(Performed 05/15/2011) Performed for Rheumatoid arthritis ([facility]) * CBC W AUTO DIFFERENTIAL(Performed 05/15/2011) Performed for Rheumatoid arthritis ([facility]) * ERYTHROCYTE SEDIMENTATION RATE(Performed 04/17/2011) Performed for Rheumatoid arthritis ([facility]) * C-REACTIVE PROTEIN(Performed 04/17/2011) Performed for Rheumatoid arthritis ([facility]) * COMPREHENSIVE METABOLIC PANEL(Performed 04/17/2011) Performed for Rheumatoid arthritis ([facility]) * CBC W AUTO DIFFERENTIAL(Performed 04/17/2011) Performed for Rheumatoid arthritis ([facility]) * ERYTHROCYTE SEDIMENTATION RATE(Performed 03/20/2011) Performed for Rheumatoid arthritis ([facility]) * C-REACTIVE PROTEIN(Performed 03/20/2011) Performed for Rheumatoid arthritis ([facility]) * COMPREHENSIVE METABOLIC PANEL(Performed 03/20/2011) Performed for Rheumatoid arthritis ([facility]) * CBC W AUTO DIFFERENTIAL(Performed 03/20/2011) Performed for Rheumatoid arthritis ([facility]) * CYCLIC CITRUL PEPTIDE ANTIBODY IGG/IGA (CCP)(Performed 02/13/2011) Performed for Rheumatoid arthritis ([facility]) * RHEUMATOID FACTOR BLOOD QUANTITATIVE(Performed 02/13/2011) Performed for Rheumatoid arthritis ([facility]) * ERYTHROCYTE SEDIMENTATION RATE(Performed 02/13/2011) Performed for Rheumatoid arthritis ([facility]) * C-REACTIVE PROTEIN(Performed 02/13/2011) Performed for Rheumatoid arthritis ([facility]) * COMPREHENSIVE METABOLIC PANEL(Performed 02/13/2011) Performed for Rheumatoid arthritis ([facility]) * CBC W AUTO DIFFERENTIAL(Performed 02/13/2011) Performed [...] SEDIMENTATION RATE(Performed 06/27/2010) Performed for Rheumatoid arthritis ([facility]) * CBC W AUTO DIFFERENTIAL(Performed 06/27/2010) Performed for Rheumatoid arthritis ([facility]) * C-REACTIVE PROTEIN(Performed 06/27/2010) Performed for Rheumatoid arthritis ([facility]) * COMPREHENSIVE METABOLIC PANEL(Performed 06/27/2010) Performed for Rheumatoid arthritis ([facility]) * ERYTHROCYTE SEDIMENTATION RATE(Performed 05/26/2010) Performed for Rheumatoid arthritis ([facility]) * C-REACTIVE PROTEIN(Performed 05/26/2010) Performed for Rheumatoid arthritis ([facility]) * COMPREHENSIVE METABOLIC PANEL(Performed 05/26/2010) Performed for Rheumatoid arthritis ([facility]) * CBC W AUTO DIFFERENTIAL(Performed 05/26/2010) Performed for Rheumatoid arthritis ([facility]) * ERYTHROCYTE SEDIMENTATION RATE(Performed 04/18/2010) Performed for Rheumatoid arthritis ([facility]) * C-REACTIVE PROTEIN(Performed 04/18/2010) Performed for Rheumatoid arthritis ([facility]) * COMPREHENSIVE METABOLIC PANEL(Performed 04/18/2010) Performed for Rheumatoid arthritis ([facility]) * CBC W AUTO DIFFERENTIAL(Performed 04/18/2010) Performed for Rheumatoid arthritis ([facility]) * ERYTHROCYTE SEDIMENTATION RATE(Performed 01/10/2010) Performed for Rheumatoid Arthritis ([facility]) * C-REACTIVE PROTEIN(Performed 01/10/2010) Performed for Rheumatoid Arthritis ([facility]) * COMPREHENSIVE METABOLIC PANEL(Performed 01/10/2010) Performed for Rheumatoid Arthritis ([facility]) * CBC W AUTO DIFFERENTIAL(Performed 01/10/2010) Performed for Rheumatoid Arthritis ([facility]) * ERYTHROCYTE SEDIMENTATION RATE(Performed 12/13/2009) Performed for Rheumatoid Arthritis ([facility]) * RHEUMATOID FACTOR BLOOD QUANTITATIVE(Performed 12/13/2009) Performed for Rheumatoid Arthritis ([facility]) * CYCLIC CITRUL PEPTIDE ANTIBODY IGG/IGA (CCP)(Performed 12/13/2009) Performed for Rheumatoid Arthritis ([facility]) * C-REACTIVE PROTEIN(Performed 12/13/2009) Performed for Rheumatoid Arthritis ([facility]) * COMPREHENSIVE METABOLIC PANEL(Performed 12/13/2009) Performed for Rheumatoid Arthritis ([facility]) * CBC W AUTO DIFFERENTIAL(Performed 12/13/2009) Performed for Rheumatoid Arthritis ([facility]) * CBC W AUTO DIFFERENTIAL(Performed 11/08/2009) * ERYTHROCYTE SEDIMENTATION RATE(Performed 11/08/2009) Performed for Rheumatoid Arthritis ([facility]) * CYCLIC CITRUL PEPTIDE ANTIBODY IGG/IGA (CCP)(Performed 11/08/2009) Performed for Rheumatoid Arthritis ([facility]) * C-REACTIVE PROTEIN(Performed 11/08/2009) Performed for Rheumatoid Arthritis ([facility]) * COMPREHENSIVE METABOLIC PANEL(Performed 11/08/2009) Performed for Rheumatoid Arthritis ([facility]) * ERYTHROCYTE SEDIMENTATION RATE(Performed 10/04/2009) Performed for Rheumatoid Arthritis ([facility]) * COMPREHENSIVE METABOLIC PANEL(Performed 10/04/2009) Performed for Rheumatoid Arthritis ([facility]) * C-REACTIVE PROTEIN(Performed 10/04/2009) Performed for Rheumatoid Arthritis ([facility]) * CBC W AUTO DIFFERENTIAL(Performed 10/04/2009) Performed for Rheumatoid Arthritis ([facility]) * ROSA BLOOD SCREEN W/REFLEX TITER(Performed 08/30/2009) * COMPREHENSIVE METABOLIC PANEL(Performed 08/30/2009) * CBC W AUTO DIFFERENTIAL(Performed 08/30/2009) * ERYTHROCYTE SEDIMENTATION RATE(Performed 08/30/2009) Performed for Rheumatoid Arthritis ([facility]) * RHEUMATOID FACTOR BLOOD QUANTITATIVE(Performed 08/30/2009) Performed for Rheumatoid Arthritis ([facility]) * CYCLIC CITRUL PEPTIDE ANTIBODY IGG/IGA (CCP)(Performed 08/30/2009) Performed for Rheumatoid Arthritis ([facility]) * C-REACTIVE PROTEIN(Performed 08/30/2009) Performed for Rheumatoid Arthritis ([facility]) * C-REACTIVE PROTEIN(Performed 08/02/2009) * COMPREHENSIVE METABOLIC PANEL(Performed 08/02/2009) * CBC W AUTO DIFFERENTIAL(Performed 08/02/2009) * ERYTHROCYTE SEDIMENTATION RATE(Performed 08/02/2009) Performed for Rheumatoid Arthritis ([facility]) * ERYTHROCYTE SEDIMENTATION RATE(Performed 07/05/2009) * C-REACTIVE PROTEIN(Performed 07/05/2009) Performed for Rheumatoid Arthritis ([facility]) * COMPREHENSIVE METABOLIC PANEL(Performed 07/05/2009) Performed for Rheumatoid Arthritis ([facility]) * CBC W AUTO DIFFERENTIAL(Performed 07/05/2009) Performed for Rheumatoid Arthritis ([facility]) * C-REACTIVE PROTEIN(Performed 06/07/2009) * ERYTHROCYTE SEDIMENTATION RATE(Performed 06/07/2009) * COMPREHENSIVE METABOLIC PANEL(Performed 06/07/2009) Performed for Rheumatoid Arthritis ([facility]) * CBC W AUTO DIFFERENTIAL(Performed 06/07/2009) Performed for Rheumatoid Arthritis ([facility]) * ERYTHROCYTE SEDIMENTATION RATE(Performed 05/05/2009) Performed for Rheumatoid Arthritis ([facility]) * COMPREHENSIVE METABOLIC PANEL(Performed 05/05/2009) Performed for Rheumatoid Arthritis ([facility]) * C-REACTIVE PROTEIN(Performed 05/05/2009) Performed for Rheumatoid Arthritis ([facility]) * CBC W AUTO DIFFERENTIAL(Performed 05/05/2009) Performed for Rheumatoid Arthritis (HCC) * RHEUMATOID FACTOR BLOOD QUANTITATIVE(Performed 04/05/2009) Performed for Rheumatoid Arthritis ([facility]) * C-REACTIVE PROTEIN(Performed 04/05/2009) Performed for Rheumatoid Arthritis ([facility]) * COMPREHENSIVE METABOLIC PANEL(Performed 04/05/2009) Performed for Rheumatoid Arthritis ([facility]) * CBC W AUTO DIFFERENTIAL(Performed 04/05/2009) Performed for Rheumatoid Arthritis ([facility]) * COMPREHENSIVE METABOLIC PANEL(Performed 03/08/2009) * CBC W AUTO DIFFERENTIAL(Performed 03/08/2009) * ERYTHROCYTE SEDIMENTATION RATE(Performed 03/08/2009) Performed for Rheumatoid Arthritis ([facility]) * C-REACTIVE PROTEIN(Performed 03/08/2009) Performed for Rheumatoid Arthritis ([facility]) * C-REACTIVE PROTEIN(Performed 02/08/2009) * COMPREHENSIVE METABOLIC PANEL(Performed 02/08/2009) * CBC W AUTO DIFFERENTIAL(Performed 02/08/2009) * ERYTHROCYTE SEDIMENTATION RATE(Performed 02/08/2009) Performed for Rheumatoid Arthritis ([facility]) * COMPREHENSIVE METABOLIC PANEL(Performed 01/11/2009) * ERYTHROCYTE SEDIMENTATION RATE(Performed 01/11/2009) Performed for Rheumatoid Arthritis ([facility]) * C-REACTIVE PROTEIN(Performed 01/11/2009) Performed for Rheumatoid Arthritis ([facility]) * CBC W AUTO DIFFERENTIAL(Performed 01/11/2009) Performed for Rheumatoid Arthritis ([facility]) * ERYTHROCYTE SEDIMENTATION RATE(Performed 12/14/2008) Performed for Rheumatoid Arthritis ([facility]) * C-REACTIVE PROTEIN(Performed 12/14/2008) Performed for Rheumatoid Arthritis ([facility]) * COMPREHENSIVE METABOLIC PANEL(Performed 12/14/2008) Performed for Rheumatoid Arthritis ([facility]) * CBC W AUTO DIFFERENTIAL(Performed 12/14/2008) Performed for Rheumatoid Arthritis ([facility]) * C-REACTIVE PROTEIN(Performed 11/16/2008) * ERYTHROCYTE SEDIMENTATION RATE(Performed 11/16/2008) * COMPREHENSIVE METABOLIC PANEL(Performed 11/16/2008) Performed for Rheumatoid Arthritis ([facility]) * CBC W AUTO DIFFERENTIAL(Performed 11/16/2008) Performed for Rheumatoid Arthritis ([facility]) * RHEUMATOID FACTOR BLOOD QUANTITATIVE(Performed 10/12/2008) * ERYTHROCYTE SEDIMENTATION RATE(Performed 10/12/2008) Performed for Rheumatoid Arthritis ([facility]) * C-REACTIVE PROTEIN(Performed 10/12/2008) Performed for Rheumatoid Arthritis ([facility]) * COMPREHENSIVE METABOLIC PANEL(Performed 10/12/2008) Performed for Rheumatoid Arthritis ([facility]) * IMAGING/RADIOLOGY/XRAY RESULTS ORDER(Performed 08/28/2008) * CYCLIC CITRULLINATED PEPTIDE(CCP) AB IGG(Performed 08/24/2008) * RHEUMATOID FACTOR BLOOD QUANTITATIVE(Performed 08/24/2008) * HEMOGLOBIN A1C(Performed 08/24/2008) Performed for Rheumatoid Arthritis ([facility]) * TSH(Performed 08/24/2008) Performed for Rheumatoid Arthritis ([facility]) * URIC ACID BLOOD(Performed 08/24/2008) Performed for Rheumatoid Arthritis ([facility]) * T4 TOTAL(Performed 08/24/2008) Performed for Rheumatoid Arthritis ([facility]) * ERYTHROCYTE SEDIMENTATION RATE(Performed 08/24/2008) Performed for Rheumatoid Arthritis ([facility]) * C-REACTIVE PROTEIN(Performed 08/24/2008) Performed for Rheumatoid Arthritis ([facility]) * COMPREHENSIVE METABOLIC PANEL(Performed 08/24/2008) Performed for Rheumatoid Arthritis ([facility]) * CBC W AUTO DIFFERENTIAL(Performed 08/24/2008) Performed for Rheumatoid Arthritis ([facility]) * ERYTHROCYTE SEDIMENTATION RATE(Performed 07/27/2008) Performed for Rheumatoid Arthritis ([facility]) * C-REACTIVE PROTEIN(Performed 07/27/2008) Performed for Rheumatoid Arthritis ([facility]) * COMPREHENSIVE METABOLIC PANEL(Performed 07/27/2008) Performed for Rheumatoid Arthritis ([facility]) * CBC W AUTO DIFFERENTIAL(Performed 07/27/2008) Performed for Rheumatoid Arthritis ([facility]) * C-REACTIVE PROTEIN(Performed 06/22/2008) * ERYTHROCYTE SEDIMENTATION [...] 6:08 PM CDT Performed at: ??01 - [place] [id number], [place] ??[id number] Engineering Design Manager: Sanchez [facility], Phone: ??[phone] Gloria Smith MD LAB - HEMATOLOGY ORD ERABLES [facility] INSURANCE BILL [address] [place] [address] * (ABNORMAL) COMPREHENSIVE METABOLIC PANEL (01/29/2024 10:37 [...] 6:08 PM CDT Performed at: ?? - [facility] [address], [place] ??[phone] Engineering Design Manager: Sanchez Wagner [facility], Phone: ??[phone] Gloria Smith MD LAB - CHEMISTRY MARII ARAUJO Performing Organization Address City/[facility]/ZIP Co de Phone Number [facility] INSURANCE BILL [address] [place] [address] * C-REACTIVE PROTEIN (05/29/2023 2:35 PM CAR ELECTRONICS INSTALLER) Only the most recent of58 resultswithin the time period is included. C-Reactive Protein 0.49 <=0.50 mg/dL [facility] INSURANCE BILL Blood BLOOD SPECIMEN / Unknown 05/29/2023 2:35 PM CAR ELECTRONICS INSTALLER 05/29/2023 Narrative Resulting Agency Comment Lab Testing performed at: [place] [address] [address] ?? [facility] [phone] Gloria Smith MD LAB - CHEMISTRY MARII ARAUJO Performing Organization Address [facility] Co de Phone Number [facility] INSURANCE BILL [address] [place] [address] * (ABNORMAL) ERYTHROCYTE SEDIMENTATION RATE (05/29/2023 2:35 PM CAR ELECTRONICS INSTALLER) Only the most recent of87 resultswithin the time period is included. Pathologist [facility] Erythrocyte Sedimentation Rate Westergren 23(H) 0 - 20 MM/HR [facility] INSURANCE BILL Blood BLOOD SPECIMEN / Unknown 05/29/2023 2:35 PM CAR ELECTRONICS INSTALLER 05/29/2023 Narrative Resulting Agency Comment Lab Testing performed at: [place] [id number] ?? [place] [phone] Gloria mSith MD LAB - HEMATOLOGY ORD ERABLES Performing Organization Address City/[facility]/ZIP Co de Phone Number [facility] INSURANCE BILL [address] [place] [address] * HEPATITIS SCREEN ACUTE ([facility]) (02/10/2022 9:46 [...] Comment Lab Testing performed at: [facility] [address] ?? [place] [phone] Gloria Smith MD LAB - CHEMISTRY MARII ARAUJO Performing Organization Address City/[facility] Co de Phone Number [facility] INSURANCE BILL [address] [place] [address] * VITAMIN D 25-HYDROXY (02/10/2022 9:46 AM CDT) [facility] Vitamin D, 25 Hydroxy 52.1 30 - 100 ng/mL [facility] INSURANCE BILL Comment: Vitamin D Status: ?Deficiency ? <20 ? ng/mL ?Insufficiency ?? 20-30 ??ng/mL ?Sufficiency ? 30-100 ng/mL ?Toxicity ? >100 ?ng/mL Blood BLOOD SPECIMEN / Unknown 02/10/2022 9:46 AM CDT 02/10/2022 Narrative Resulting Agency Comment Lab Testing performed at: [facility] [address] [address] ?? [place] [phone] Gloria Smith MD LAB - CHEMISTRY MARII ARAUJO [facility] INSURANCE BILL [address] [place] [address] * QUANTIFERON TB-GOLD (02/10/2022 9:44 AM CDT) Only the most recent of3 resultswithin the time period is included. [facility] QuantiFERON Incubation Incubation performed. [facility] INSURANCE BILL [...] Resulting Agency Comment Lab Testing performed at: [facility] [address] [facility] ??[facility] [phone] Gloria Smith MD LAB - CHEMISTRY MARII ARAUJO [facility] INSURANCE BILL [address] [place] [address] * LAB RESULTS ORDER (12/28/2021) Only the most recent of2 resultswithin the time period is included. 12/28/2021 Narrative 12/28/2021 Ordered by an unspecified provider. Scanned Document LAB - THERAPEUTIC DR BUSH MONITORING ORDERABLES * REF LAB-ABN TEST REFUSAL (02/08/2021 4:45 PM CDT) [facility] Advance Beneficiary Notice Option 3 [facility] INSURANCE BILL Comment: One or more tests [...] Resulting Agency Comment Lab Testing performed at: [facility] [place], [place] [address] ??[facility] [phone] Gloria Smith MD LAB - CHEMISTRY ORDAvelino [facility] Group[facility] Performing Organization Address City/[facility]/ZIP Co de Phone Number [facility] INSURANCE BILL [address] [place] [address] * (ABNORMAL) VITAMIN B12 (02/08/2021 4:45 PM CDT) [facility] Vitamin B12 1,257(H) 232 - 1,245 pg/mL [facility] BILL Blood BLOOD SPECIMEN / Unknown 02/08/2021 4:45 PM CDT 02/08/2021 Narrative Resulting Agency Comment Lab Testing performed at: [facility] [address] [place], [place] [address] ??[facility] [phone] Gloria Smith MD LAB - CHEMISTRY ORDBidstalkDO Performing Organization Address City/[facility]/ZIP Co de Phone Number [facility] INSURANCE BILL [address] [place] [address] * THIOPURINE METHYLTRANSFERASE (07/27/2020 3:14 PM CDT) [facility] TPMT Activity 23.1 Units/mL RBC [facility] INSURANCE BILL Comment: Reference Range: Normal: 15.1 - 26.4 Heterozygous for low TPMT variant: 6.3 - 15.0 Homozygous for low TPMT variant: <6.3 Interpretation [facility] RP INSURANCE BILL Comment: The above results can be interpreted as Normal for red blood cell Thiopurine Methyltransferase activity. For patients having an intrinsic low level of TPMT, recent RBC transfusion can variably increase their assayed enzymatic activity depending on the amount and circulating half-life of the transfused red blood cells. This test was developed and its performance characteristics determined by [facility]. It has not been cleared or approved by the Food and Drug Administration. This case has been reviewed, approved, interpreted and electronically signed by Go Saenz, PhD, [facility]. Methodology [facility] INSURANCE BILL Comment: Enzymatic Endpoint/Liquid Chromatography - Tandem Mass Spectrometry (LC-MS/MS) Blood BLOOD SPECIMEN / Unknown 07/27/2020 3:14 PM CDT 07/27/2020 Narrative Resulting Agency Comment Lab Testing performed at: [employer] [address] [place] [address] ??[place] [phone] Gloria Smith MD LAB - CHEMISTRY MARII [facility] Organization Address City/State/ZIP Co de Phone Number [facility] INSURANCE BILL [address] [place] [address] * XR HAND RIGHT 3VW OR MORE (05/10/2020 10:37 AM CAR ELECTRONICS INSTALLER) Anatomical Region Laterality Modality Wrist / Hand Computed Radiogr aphy Narrative 05/10/2020 10:38 AM CAR ELECTRONICS INSTALLER Mora Delgado, RT(R) ? 05/10/2020 11:39 AM See chart for xray results iNni Han MD DIAGNOSTIC IMAGING ORDERABLES * XR [...] are patent and symmetric. Procedure Note Bobby Rievra MD - 02/06/2020 Sacroiliac joints 3 views [...] B27 (02/06/2020 1:32 PM CDT) HLA-B27 Negative [facility] INSURANCE BILL Comment: HLA-B*27 Negative B27 allele interpretation for all loci based on IMGT/HLA database version 3.38 This test was developed and its performance characteristics determined by [facility]. ??It has not been cleared or approved by the Food and Drug Administration. [facility] CLIA ID Number [id number] ? . This test was performed using PCR (Polymerase Chain Reaction)/SSOP (Sequence Specific Oligonucleotide Probes) technique. ??SBT (Sequence Based Typing) and/or SSP (Sequence Specific Primers) may be used as supplemental methods when necessary. ??Please contact [facility] Customer Service at if you have any questions. ? . Director of HLA Laboratory Dr Frankie Salinas, PhD Blood BLOOD SPECIMEN / Unknown 02/06/2020 1:32 PM CDT 02/06/2020 Narrative Resulting Agency Comment Lab Testing performed at: [place] [address] [facility] ??[facility] [phone] Gloria Smith MD LAB - CHEMISTRY MARII ARAUJO [facility] INSURANCE BILL [address] [place] [address] * BASIC METABOLIC PANEL (CALCIUM TOTAL) (09/26/2019 [...] Resulting Agency Comment Lab Testing performed at: [address] ?? [facility] [phone] Gloria Smith MD LAB - CHEMISTRY [facility] INSURANCE BILL [address] [place] [address] * DEXA BONE DENSITY 2 SITES (07/09/2019) Anatomical Region Laterality Modality Other 07/09/2019 Narrative 07/09/2019 Ordered by an unspecified provider. Scanned Document DEXA ORDERABLES * XR CERVICAL SPINE 2 OR 3VW (04/18/2019 1:48 PM CAR ELECTRONICS INSTALLER) Only the most recent of2 resultswithin the time period is included. Anatomical Region Laterality Modality Spine Radiographic Reena ging 04/18/2019 1:56 PM CAR ELECTRONICS INSTALLER Impressions 04/18/2019 1:59 PM CAR ELECTRONICS INSTALLER There is moderate disc space narrowing at C5-6 and C6-7 with osteophytosis at C5-6. This could be further evaluated by MRI if indicated. Reading Radiologist: Cristina Avalos MD on 04/18/2019 at 1:59 PM Narrative 04/18/2019 1:59 PM CAR ELECTRONICS INSTALLER Cervical spine AP and lateral INDICATION: Neck [...] buPROPion (WELLBUTRIN) 100 MG tablet ? ? nrkzidwmvoj-bibw-itvdcahn, PF, (REFRESH OPTIVE ADVANCED PF) 0.5-1-0.5 % SOLN ? ? carvedilol (COREG) 12.5 MG tablet ? ? ferrous sulfate 325 (65 FE) MG tablet ? ? gabapentin (NEURONTIN) 300 MG capsule ? ? Czydeicunsa-Udreybeuk-Rzh C-Mn (GLUCOSAMINE CHONDR 1500 COMPLX PO) ? [...] identified, and marked by Dr. Mirza. ??Responsible parts driver is not needed due to the [...] Agency Comment [facility] [place] [address] ??[facility] [phone] Isidro Heredia MD LAB - CHEMISTRY ORD ERABLES [facility] INSURANCE BILL [address] [place] [address] * VASCULAR LAB ORDER (05/02/2017) Anatomical Region Laterality Modality Other Isidro Heredia MD VASCULAR LAB ORDERA BLES * XR ANKLE BILAT 2 VIEWS (03/08/2017 4:07 PM CAR ELECTRONICS INSTALLER) Anatomical Region Laterality Modality Ankle / Foot, Lower Extremity Ra diographic Imaging 03/08/2017 4:14 PM CAR ELECTRONICS INSTALLER Impressions 03/08/2017 4:15 PM CAR ELECTRONICS INSTALLER No fracture. Narrative 03/08/2017 4:15 PM CAR ELECTRONICS INSTALLER Bilateral ankles 2 views INDICATION: Ankle pain AP and lateral views of the ankles are provided. There is no fracture nor malalignment nor radiopaque foreign body. Procedure Note Meenakshi Mairn MD - 03/08/2017 Bilateral ankles 2 views [...] CDT 08/24/2016 Narrative Resulting Agency Comment [facility] [address] ??[facility] [phone] Isidro Heredia MD LAB - CHEMISTRY ORD ERABLES Performing Organization Address City/State/[facility] Co de Phone Number [facility] INSURANCE BILL [address] [place] [address] * PO REF LAB-SPECIMEN STATUS REPORT (02/23/2016 1:30 AM CDT) Specimen Status Report NOT NEEDED [facility] INSURANCE BILL Comment: Test could not be performed due to degeneration of specimen. ?TEST: ??[id number] ??Sedimentation Rate-Westergren Ancillary determined the test is not needed 02/23/2016 1:30 AM CDT 02/23/2016 6:29 PM CDT Narrative Resulting Agency Comment [facility] [address] [facility] ??[facility] [phone] Isidro Heredia MD LAB - CHEMISTRY [place] Performing Organization Address [facility] Co de Phone Number [facility] INSURANCE BILL [address] [place] [address] * TSH (10/13/2015 3:30 PM CDT) Only the most recent of2 resultswithin the time period is included. TSH 1.06 0.358 - 3.740 uIU/mL [facility] INSURANCE BILL Blood specimen (specimen) BLOOD SPECIMEN / Unknown 10/13/2015 3:30 PM CDT 10/13/2015 6:21 PM CDT Narrative Resulting Agency Comment [facility] [address] [address] ??[facility] [phone] Isidro Heredia MD LAB - CHEMISTRY ORD ZazubaBLES Performing Organization Address City/[facility]/ZIP Co de Phone Number [facility] INSURANCE BILL [address] [place] [address] * T4 TOTAL (10/13/2015 3:30 PM CDT) Only the most recent of2 resultswithin the time period is included. T4 Total 4.9 4.7 - 13.3 ug/dL [facility] INSURANCE BILL Blood specimen (specimen) BLOOD SPECIMEN / Unknown 10/13/2015 3:30 PM CDT 10/13/2015 6:21 PM CDT Narrative Resulting Agency Comment [facility] [address] [facility] ??[place] [phone] Isidro Heredia MD LAB - CHEMISTRY CALEB FIELDS [facility] INSURANCE BILL [address] [place] [address] * CYCLIC CITRUL PEPTIDE ANTIBODY IGG/IGA (CCP) [...] CDT Narrative Resulting Agency Comment [facility] [address] ??[facility] [phone] Isidro Heredia MD LAB - SEROLOGY MARII ARAUJO [facility] INSURANCE BILL * RHEUMATOID FACTOR BLOOD QUANTITATIVE (08/12/2014 2:08 PM CDT) Only the most recent of9 resultswithin the time period is included. Rheumatoid Factor 10.2 0.0 - 13.9 IU/mL [facility] INSURANCE BILL Blood specimen (specimen) BLOOD SPECIMEN / Unknown 08/12/2014 2:08 PM CDT 08/12/2014 6:39 PM CDT Narrative Resulting Agency Comment [facility] [address] [facility] ??[facility] [phone] Isidro Heredia MD LAB - CHEMISTRY ORD ERABLES [facility] INSURANCE BILL * KAMI STAINING PATTERNS REFLEXED (PO REF LAB) (08/12/2014 2:03 PM CDT) Only the most recent of2 resultswithin the time period is included. Pathologist [facility] Homogeneous Pattern 1:80 [facility] INSURANCE BILL [...] (Smooth) ? Histone ? Speckled ? Sm, MANAGER COMMUNICATION, SCL-70, ??SLE,MCTD,Scleroderma,Sjogrens ? SS-A/SS-B ? Nucleolar ?SCL-70, PM-1/SCL ??High titers Scleroderma Poly- ? myositis/Scleroderma Overlap ? Centromere ?? Centromere ?PSS w/Crest syndrome variable ?? 08/12/2014 2:03 PM CDT 08/12/2014 6:39 PM CDT Narrative Resulting Agency Comment [address] ??[facility] [phone] Isidro Heredia MD LAB - PATHOLOGY/CYT OLOGY [...] Narrative Resulting Agency Comment [facility] [place] [address] [facility] ??[facility] [phone] Isidro Heredia MD LAB - CHEMISTRY ORD [...] ABDOMEN PELVIS W CONT (03/25/2013 8:59 AM CAR ELECTRONICS INSTALLER) Anatomical Region Laterality Modality Chest, Abdomen, Pelvis Computed Tomography 03/25/2013 11:5 3 AM CAR ELECTRONICS INSTALLER Narrative 03/25/2013 11:57 AM CAR ELECTRONICS INSTALLER Examination: CT chest with contrast. Indication for [...] - POINT OF CARE (03/24/2013 9:16 AM CAR ELECTRONICS INSTALLER) Clarity UA POCT Comment:creatine 100 mg/dl Color UA POCT yellow Leukocyte UA negative Negative Nitrite UA POCT negative Negative Urobilinogen UA POCT 0.1 - 1.0 EU/dL Protein UA POCT negative Negative pH UA 6.0 5.0 - 8.0 pH units Blood UA negative Negtive Specific [place] UA POCT 1.015 1.002 - 1.030 Ketone [...] CDT Narrative Resulting Agency Comment [facility] [address] ??[facility] [phone] Isidro Heredia MD LAB - CHEMISTRY ORD ERABLES [facility] ACCOUNT BILL * (ABNORMAL) LIPID PROFILE W LDL/HDL (PO REF LAB) (05/15/2011 6:06 PM CAR ELECTRONICS INSTALLER) Cholesterol 191 100 - 199 mg/dL [facility] [...] BLOOD SPECIMEN / Unknown 05/15/2011 6:06 PM CAR ELECTRONICS INSTALLER 05/15/2011 9:47 PM CAR ELECTRONICS INSTALLER Narrative Resulting Agency Comment [facility] [place] [id number] [facility] ??[facility] [phone] Isidro Heredia MD LAB - CHEMISTRY ORD ERABLES [facility] ACCOUNT BILL * URIC ACID BLOOD (08/24/2008 6:37 PM CDT) Uric Acid 5.1 2.4 - 8.2 mg/dL [facility] INSURANCE BILL BLOOD SPECIMEN / Unknown 08/24/2008 6:37 PM CDT 08/24/2008 9:56 PM CDT Narrative Resulting Agency Comment [facility] [place] [address] ??[place] [phone] Isidro Heredia MD LAB - CHEMISTRY [place] [facility] INSURANCE BILL * HEMOGLOBIN A1C (08/24/2008 6:37 PM CDT) Hemoglobin A1c 5.6 <7.0 % [facility] INSURANCE BILL Comment: ?Diabetic Adult ?<7.0 ?Healthy Adult ?4.8 - 5.9 ?(DCCT/NGSP) ?[place] [employer] Association's Summary of Glycemic ?Recommendations for Adults with Diabetes: ?Hemoglobin A1c <7.0%. More stringent glycemic goals ?(A1c <6.0%) may further reduce complications at the ?cost of increased risk of hypoglycemia. BLOOD SPECIMEN / Unknown 08/24/2008 6:37 PM CDT 08/24/2008 9:56 PM CDT Narrative Resulting Agency Comment [facility] [place] [address] ??[place] [phone] Isidro Heredia MD LAB - CHEMISTRY CALEB ZazubaMEGAN [facility] INSURANCE BILL * CYCLIC CITRUL PEPTIDE ANTIBODY IGG (CCP) (08/24/2008 6:37 PM CDT) CCP Antibody IgG 1 0 - 5 U/mL [facility] INSURANCE BILL Comment: ?Negative: ??0 - 5 ?Positive: ? >5 08/24/2008 6:37 PM CDT 08/24/2008 9:56 PM CDT Narrative Resulting Agency Comment [facility] [address] ??[facility] [phone] Isidro Heredia MD LAB - CHEMISTRY ORD ERABLES [facility] INSURANCE BILL Care Teams Clamp Operator Relationship Specialty Start Date End Date Tomas Hyman MD [address] [facility] [address] [place] [address] PCP - General Family Medicine 09/05/18 Isidro Heredia MD Rheumatology 02/09/11
--- OUTSIDE RECORDS SUMMARY | 2024-05-10 18:42 | XMS_ITS | CONTINUITY OF CARE DOCUMENT ---
Author Name maddison washburn Address Unknown Organization [facility] Address [address] [place] [address] Phone [phone] Care Team Providers Care Coach Cleaner Name Role Phone Tommy LINDER, Bladimir Unavailable BRENT WALTER MD Unavailable [phone] BRENT WALTER MD Unavailable [phone] PROBLEMS Condition Status Date Provider Notes Shortness of breath completed - Bladimir Sanders MD CAD;neg carotid duplex active Bladimir Sanders MD prefereds no x 2.5,neg pet 24 Asthma completed - Bladimir Sanders MD Exposure to SARS-associated coronavirus;neg igg and had vaccine active Bladimir Sanders MD Hypokalemia completed - Bladimir Sanders MD Mitral insufficiency, mild active Bladimir viera MD Dyspnea on exertion completed - Bladimir Sanders MD Adenomatous colonic polyp active Bladimir ojeda MD Sleep apnea active Bladimir Sanders MD Nerve pain active Bladimir Sanders MD PREDIABETES completed - Bladimir Sanders MD Screening active Bladimir Sanders MD Anemia, iron deficiency active Bladimir bowden MD r/o PVD;neg arvin completed - Bladimir Sanders MD COPD;DUE TO RA?, neg cxr, neg rhc 15 completed - Bladimir Sanders MD Mitral regurgitation, mild completed 09/10 - Bladimir Sanders MD Diastolic dysfunction active Bladimir Sanders MD Aortic root dilatation completed 4 - Bladimir Sanders MD r/o Ischemia;ABNL NUC [...] Bladimir Gomez Obesity active Clare Ventimig matilde [employer] SEWER wegoby not covered ENCOUNTERS Date Type Provider Location Encounter Diag nosis - In-person encounter Office Visit Bladimir Sanders MD [place] Obesity - In-person encounter Office Visit Bladimir Sanders MD [facility] Obesity - In-person encounter Office Visit Bladimir Sanders MD [place] Obesity - In-person encounter Office Visit Bladimir Sanders MD [place] [facility] CAD;neg carotid duplex - In-person encounter Office Visit Bladimir Sanders MD [place] [facility] HypokalemiaExposure to SARS-associated coronavirus;neg igg and had vaccine - In-person encounter Office Visit Bladimir Sanders MD [place] [facility] Exposure to SARS-associated coronavirus;neg igg and had vaccine - In-person encounter Office Visit Bladimir Sanders MD [place] [facility] HTN essential;neg duplexAortic root dilatationr/o PVD;neg abiScreeningPREDIABETESAsthmaDyspnea on exertionMitral insufficiency, mild - In-person encounter Office Visit Bladimir Sanders MD [place] COPD;DUE TO RA?, neg cxr, neg rhc 15Anemia, iron deficiencySleep apnea - In-person encounter Office Visit Bladimir Sanders MD [place] Obesityr/o Ischemia;ABNL NUC 15, 20% rca 15Aortic root dilatationDiastolic dysfunctionAnemia, iron deficiencyNerve painSleep apneaAdenomatous colonic polyp - In-person encounter Office Visit Bladimir Sanders MD [place] ObesityScreening - In-person encounter Office Visit Bladimir Sanders MD [place] [facility] ObesitySinus tachycardia;nml tsh, due to pain,Aortic root dilatationMitral regurgitation, mildAnemia, iron deficiencyCAD;neg carotid duplex - In-person encounter Office Visit Bladimir Sanders MD [place] [facility] Hyperlipidemia;NEG CRP and neg lpaBACK PAIN;sciatica sees scodary, on med rxSinus tachycardia;nml tsh, due to pain,HTN essential;neg duplexr/o Ischemia;ABNL NUC 15, 20% rca 15Shortness of breathAortic root dilatationDiastolic dysfunctionMitral regurgitation, mildCOPD;DUE TO RA?, neg cxr, neg rhc 15r/o PVD;neg arvin - In-person encounter Office Visit Bladimir Sanders MD [place] ObesityRheumatoid arthritisHyperlipidemia;NEG CRP and neg lpaHypertriglyceridemiaDiverticulosis, [...] blood pressure, systolic 132 mm[Hg] Tab moises [place] respiratory rate E&M 12 /min Jenelle León height E&M 70 [in_i] Jenelle León Body Mass Index (Ratio) 31.99 kg/m2 Esther Sanders MD oxygen saturation, oximetry 99 % Jenelle [place] blood pressure, cuff size regular Javon witt [place] blood pressure, diastolic 90 mm[Hg] Javon witt [place] blood pressure, systolic 142 mm[Hg] Tab moises [place] pulse rate 89 /min Jenelle [place] weight E&M 223 [lb_av] Jenelle [place] respiratory rate E&M 12 /min Jenelle León height E&M 70 [in_i] Jenelle [place] Body Mass Index (Ratio) 29.12 kg/m2 Esther [...] Eryn Van weight E&M 214.0 [lb_av] Eryn Curtis height E&M 70 [in_i] Eryn Van Body [...] Garcia Body Mass Index (Ratio) 36.87 kg/m2 [facility] 70 [in_i] Va Garcia [...] LinkLogic 0-149 cholesterol, serum 134 mg/dL [employer] [phone]/01/ 04 ferritin, serum 163 ng/mL [employer] 30-400 [...] iron binding capacity, unsaturated 134 ug/dL [employer] [phone]/01/ 04 iron binding capacity, total 293 ug/dL [employer] [phone]/05/ 31 pro brain natriuretic peptide 30.4 pg/mL [...] celecoxib 200 mg capsule active Clare Fallgllaura [employer] naltrexone 50 mg tablet completed Take 1/2 tablet by mouth once a day 12 tab by mouth daily, if not effective after 1 week may increase to 1/2 tab twice daily 06/10 - 01/22 Clare Caballero [employer] SEWER icosapent ethyl 1 gram capsule completed Take [...] completed 2 capsules by mouth twice daily [place] Coupon Code: [facility]# [id number], PCN# [id number], GRP# [id number], ID# [id number] 06/05 - 11/15 Paula Sadi AV-PHOS 250 [...] history of marijuana use no Clare Ventimiglia [employer] drug use no Clare Ventimig matilde [employer] alcohol use no Clare Ventimig matilde [facility] smoking status Never smoker Clare Ventim iglia [employer] alcohol use no Bladimir Gomez smoking status [...] Management Plan continue current therapy Clare Caballero [employer]LE SEW[employer] HRA, CV Assess/Plan, Angina (inactive) Management Plan [...] party ID [place] MEDICARE PART B Medicare [id number] RICARDO SCHWART[facility] [id number] ADVANCE DIRECTIVES Name Date DISCUSSED - NO DECISION MADE TREATMENT PLAN Date Name Performer [id number],S, t ried diet topamz adn adepix in past, did not want wellbuona Bladimir Sanders MD [id number],S, Bladimir bowden MD [id number],S, s evere T he patient is using CPAP on a regular basis. The patient has been benefiting from therapy and should continue use. Bladimir Sanders MD [id number],S, n eg rpr and b`12 Bladimir Sanders MD [id number],S, Bladimir bowden MD [id number],S, Bladimir bowden MD [id number],S, p ft nromal, nml uacr, ml a1 ,neg arvin V IT d OK Bladimir Sanders MD [id number],S, H is updated medication list for this problem includes: Coreg 12.5 Mg Tablet (Carvedilol) ..... Take 1 tablet by mouth twice daily Hydrochlorothiazide 25 Mg Tablet (Hydrochlorothiazide) ..... 1 tablet by mouth once a day Aspirin 81 Mg Tablet,delayed Release (dr/ec) (Aspirin) ..... 1 tablet by mouth once a day BP today: 106/69 P rior BP: 125/77 (11/17/2021) Bladimir Sanders MD [id number],S, p ro 20 Bladimir Sanders MD [id number],S, n uc 18 neg, rca 20% 2014, cor score 338 Bladimir Sanders MD [id number],B, i alireza minerced, had colon, b12 and folate ok Bladimir Sanders MD [id number],S, Bladimir Jacobs kal LINDER [id number],S, Bladimir Serot a [id number],S, t ried diet topamz adn adepix in past, did not want wellbuona Bladimir Sanders MD [id number],S, p ft nromal, nml uacr, ml a1 ,neg arvin V IT d OK Bladimir Sanders MD [id number],BEstherey Arlene bowden MD [id number],S, Bladimir Serot a [id number],S, Bladimir Serot a [id number],B, Bladimir Serot a [id number],C, H is updated medication list for this problem includes: Hydrochlorothiazide 25 Mg Oral Tablet (Hydrochlorothiazide) ..... One tab daily Aspirin Adult Low Dose 81 Mg Oral Tablet Delayed Release (Aspirin) ..... One tab by mouth daily Coreg 12.5 Mg Oral Tablet (Carvedilol) ..... One tab. twice daily BP today: 125/77 P rior BP: 114/70 (10/28/2020) Bladimir Sanders MD [id number],S, p ro 20 Bladimir Sanders MD [id number],B, i alireza correced, had colon, b12 and folate ok Bladimir Sanders MD [id number],S, n uc 18 neg, rca 20% 2014, cor score 338 Bladimir Sanders MD [id number],C,n uc 18 neg, rca 20% 2015, cor score 338 Bladimir Sanders MD [id number],S, t ried diet topamz adn adepix in past, did not want wellbuona Bladimir Sanders MD [id number],B, Bladimir bowden MD [id number],B, Bladimir bowden MD [id number],S, H is updated medication list for this problem includes: Hydrochlorothiazide 25 Mg Oral Tablet (Hydrochlorothiazide) ..... One tab daily Aspirin Adult Low Dose 81 Mg Oral Tablet Delayed Release (Aspirin) ..... One tab by mouth daily Coreg 12.5 Mg Oral Tablet (Carvedilol) ..... One tab. twice daily BP today: 114/70 P rior BP: 136/77 (10/16/2019) Bladimir Sanders MD [id number],S, p ro 20 Bladimir Sanders MD [id number],S, p ft nromal, nml uacr, ml a1 and probnp,neg arvin B 12 FOLATRE AND VIT d OK Bladimir Sanders MD [id number],S, s evere T he patient is using CPAP on a regular basis. The patient has been benefiting from therapy and should continue use. Bladimir Sanders MD [id number],SBladimir MD [id number],SBladimir MD [id number],S, n uc 18 neg, 20% rca 15 Bladimir Sanders MD [id number],SBladimir MD [id number],B, i alireza correced, had colon, b12 and folate ok Bladimir Sanders MD Cardiology:continued weight loss c ould not tolerate naltrexone d/t GI upset W ill try GLP-1 Clare Ventimiglia [employer] Cardiology:remains m ild E F of 55% [facility] Cardiology:LDL 64 on last labs c rohith statin H is updated medication list for this problem includes: Icosapent Ethyl 1 Gram Capsule (Icosapent ethyl) ..... Take 2 capsules twice a day Atorvastatin 40 Mg Tablet (Atorvastatin) ..... Take 1 tablet by mouth once a day [facility] Cardiology:trig 141 on last labs R emains on vacepa H is updated medication list for this problem includes: Icosapent Ethyl 1 Gram Capsule (Icosapent ethyl) ..... Take 2 capsules twice a day Atorvastatin 40 Mg Tablet (Atorvastatin) ..... Take 1 tablet by mouth once a day [facility] Cardiology:EF 55% on last echo n o new symptoms [facility] Cardiology:BP 132/78 today in office c rohith present meds His updated medication list for this problem includes: Hydrochlorothiazide 25 Mg Tablet (Hydrochlorothiazide) ..... 1 tablet by mouth once a day Coreg 12.5 Mg Tablet (Carvedilol) ..... Take 1 tablet by mouth twice daily Aspirin 81 Mg Tablet,delayed Release (dr/ec) (Aspirin) ..... 1 tablet by mouth once a day [facility] :pro 20 ef 54 Bladimir Sanders [...] rca 20% 2014, cor score 338 Bladimir Sanedrs MD Cardiology Bladimir Sanders MD Cardiology: t ried diet topamz adn adepix in past, did not want wellbuona Bladimir Sanders MD Cardiology Bladimir Sanedrs MD Cardiology: s anyie T he patient [...] from therapy and should continue use. Bladimir Snaders MD Cardiology Bladimir Sanders MD Cardiology Bladimir [...] mouth twice daily universal coupon code: bin# [id number], pcn# [email or web address], grp# [email or web address], id# [id number] Atorvastatin Calcium 40 Mg Oral Tablet (Atorvastatin [...] d OK Bladimir Sanders MD Cardiology Follow u p : H is updated medication list for [...] tab. twice daily Orders: I NR Strip (CPT-60532) Bladimir Sanders MD New Patient: O rders: H olter Monitor 24 Hr (CPT-86993) C omplete Echo (CPT-78008) S TR - Adenosine (93937) Bladimir Sanders MD New Patient: O rders: H olter Monitor 24 Hr (CPT-49627) C omplete Echo (CPT-00361) S TR - Adenosine (88097) F ull PFT (*) Bladimir Sanders MD [...] AND TOTAL IRON BINDING CAPACITY DLCO - 11535 FRC - 85383 FVC - 89671 Complete Echo ZIO Holter Sleep Study Home HEMOGLOBIN A1c PROBNP, N TERMINAL DLCO - 22814 FRC - 05170 FVC - 93666 RPR (MONITOR) W/REFL TITER IRON AND TOTAL [...] ower EX INR Strip DLCO Order - 85954 FRC Order - 43316 FVC Order - 34898 Full PFT STR - Adenosine Complete Echo [...] MD complete d FVC / MVV - 35804 Bladimir Sanders MD c ompleted FRC - 46813 Bladimir Sanders MD complet ed SpO2 w/o 6min walk/titration Bladimir Sanders MD completed DLCO - 36771 Bladimir Sanders MD comple loli EKG Bladimir Sanders MD complete d SNOMED-CT: 257775586 503560 Current Medications Documented Bladimir Sanders MD completed FVC / MVV with bronchodilator - 03589 Bladimir Sanders MD completed BLOOD COUNT HEMOGLOBIN Bladimir Sanders MD completed FRC - 19089 Bladimir Sanders MD complet ed SpO2 - 80387 Bladimir Sanders MD comple loli DLCO - 28102 Bladimir Sanders MD comple loli GABBY Sanders MD c ompleted SNOMED-CT: 162335445 219983 Current Medications Documented Bladimir Sanders MD completed EKG Bladimir Sanders MD complete d SNOMED-CT: 273573008 945037 Current Medications Documented Bladimir Sanders MD completed EKG Bladimir Sanders MD complete d BLOOD COUNT HEMOGLOBIN Bladimir Sanders MD completed EKG Bladimir Sanders MD complete d
--- OUTSIDE RECORDS SUMMARY | 2024-05-10 18:42 | XMS_ITS | Clinical Summary ---
Author Organization [facility] Address [address] [place] [address] Care Team Providers Care Commercial Green Retrofit Architect Name Role Phone Isidro Heredia MD Unavailable [phone] Tomas Hyman MD Primary Care Provider [phone] Source Comments [facility],non-owned Affiliates and Associated Physician Practices is amultiple site organization consisting of ambulatory clinics and hospital sitesin [place], [place], [place] and [place]. This disclosure is being madepursuant to the Care Everywhere program and may not contain all information available regarding this patient. 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 Encounters Date Type Department Care Team Description 04/04/2024 9:45 AM GOLF TEACHER - 04/04/2024 11:59 PM GOLF TEACHER Hospital Encounter [facility] - Rheumatology [address] [place] [address] Gloria Smith MD Rheumatology Discharge Disposition: Home or Self Care 02/16/2024 Refill [facility] Rheumatology [address] [place] [address] [phone] Gloria Smith MD MEDICATION REFILL 02/08/2024 11:40 AM CDT Office Visit [facility] [address] [place] [address] [phone] Gloria Smith MD Rheumatoid arthritis of multiple sites with negative rheumatoid factor (HCC) (Primary Dx) from Last 3 Months Immunizations Name Administration Dates Next Due Syniverse primary monoval ent 12+ yr 0.3mL Purple [...] Comments Blood Pressure 144/83 04/04/2024 10:23 AM GOLF TEACHER Pulse 82 04/04/2024 10:23 AM GOLF TEACHER Temperature 36.8 ??C (98.2 ??F) 04/04/2024 1 0:23 AM GOLF TEACHER Respiratory Rate 16 09/18/2023 3:34 PM CDT Oxygen Saturation 100% 01/30/2023 10: 56 AM CDT Inhaled Oxygen Concentration - - Weight 106.4 kg (234 lb 9.6 oz) 024 10:23 AM GOLF TEACHER Height 177.8 cm (5' 10 ) 02/08/2024 11: 48 AM CDT Body Mass Index 33.66 02/08/2024 11:48 AM CDT Plan of Treatment Upcoming Encounters Date Type Department Care Team (Late st Contact Info) Description 06/03/2024 1:00 PM GOLF TEACHER Appointment [facility] - Rheumatology [address] [place] [address] [phone] 06/03/2024 2:00 PM GOLF TEACHER Office Visit [facility]ology [address] [place] [address] [phone] Gloria Smith MD [address] [place] [address] [phone] Health Maintenance Due Date Last Done Comments [...] 01/29/2024 6:08 PM CDT Performed at: ?? [place] [address] [place], [place] ??[id number] Electric Organ Assembler: Sanchez Wagner [facility], Phone: ??[phone] Gloria Smith MD LAB - CHEMISTRY MARII ARAUJO [facility] INSURANCE BILL [address] [place] [address] * HEPATITIS SCREEN ACUTE ([facility]) (02/10/2022 9:46 [...] Agency Comment Lab Testing performed at: [facility] [address] [address] ?? Ziyad PENNY [id number] Gloria Smith MD LAB - CHEMISTRY MARII ARAUJO [facility] INSURANCE BILL [address] [place] [address] from Last 3 Months or Most Recently Relevant to Health Maintenance Care Teams Commercial Green Retrofit Architect Relationship Specialty Start Date End Date Tomas Hyman MD [address] [place] [address] PCP - General Family Medicine 09/05/18 Isidro Heredia MD Rheumatology 02/09/11
--- OUTSIDE RECORDS SUMMARY | 2024-05-10 18:43 | XMS_ITS | Encounter Summary ---
Author Organization [facility] Address [address] [place] [address] Care Team Providers Care Automotive Repair Technician Name Role Phone Isidro Heredia MD Unavailable [phone] Toams Hyman MD Primary Care Provider [phone] Reason for Visit * Treatment (Elective) - Closed Specialty Diagnoses / Procedures Referred By Contsarahi t Referred To Contact Diagnoses Rheumatoid arthritis of multiple sites with negative rheumatoid factor (HCC) Procedures NM GOLIMUMAB FOR IV USE 1MG Gloria Smith MD [address] [place] [address] [address] Referral ID Status Reason Start Date Expiration Date Visits Re quested Visits Authorized [id number] Closed 05/22/2022 04/29/2023 12 12 Encounter Details Date Type Department Care Team (Latest Contact Info) Description 10/04/2022 12:04 PM CDT - 10/04/2022 11:59 PM CDT Hospital Encounter [facility] [address] [address] Tomas Hyman MD [address] [place] [address] Discharge Disposition: Home or Self [...] tablet by mouth 2 times daily 09/04/2022 oufmlblevkn-txes-ys lysorb, PF, 0.5-1-0.5 % SOLN Instill 1 [...] 1960 10/04/2022 Patient completed scheduled [facility] at [facility]. Please call with any questions at [phone]. BP 128/74 Pulse 70 Temp 96.6 ??F [...] st Contact Info) Description 06/03/2024 1:00 PM BID MANAGER Appointment [facility] - Rheumatology [address] [place] [address] 06/03/2024 2:00 PM BID MANAGER Office Visit [facility] - Rheumatology [address] [place] [address] Gloria Smith MD [address] [place] [phone] documented as of this encounter Visit [...] mL/hr documented in this encounter Care Teams Automotive Repair Technician Relationship Specialty Start Date End Date Tomas Hyman MD [address] [place] [address] PCP - General Family Medicine 09/05/18 Isidro Heredia MD Rheumatology 02/09/11 documented as of this encounter
--- OUTSIDE RECORDS SUMMARY | 2024-05-10 18:43 | XMS_ITS | Encounter Summary ---
Author Organization [facility] Address [address] [place] [address] Care Team Providers Care Income Tax Manager Name Role Phone Isidro Heredia MD Unavailable [phone] Tomas Hyman MD Primary Care Provider [phone] Encounter Details Date Type Department Care Team (Late Contact Info) Description 07/11/2022 Orders Only [facility] - Rheumatology [address] [place] [address] Gloria Smith MD [address] [place] [phone] High risk medication use Social History [...] (Late Contact Info) Description 06/03/2024 1:00 PM TICKET SALES SUPERVISOR Appointment [facility] - Rheumatology [address] [place] [address] 06/03/2024 2:00 PM TICKET SALES SUPERVISOR Office Visit [facility] - Rheumatology [address] [place] [address] Gloria Smith MD [address] [...] of this report has been sent to [facility] Resulting Agency Comment Lab Testing performed at: [facility] [address] ??[facility] [phone] Gloria Smith MD LAB - CHEMISTRY MARII ARAUJO [facility] INSURANCE BILL [address] [place] [address] * (ABNORMAL) CBC WITH DIFFERENTIAL (07/27/2022 2:53 [...] Agency Comment Lab Testing performed at: [facility] [address] [facility] ??[facility] [phone] Gloria Smith MD LAB - HEMATOLOGY ORD ERABLES [facility] INSURANCE BILL [address] [place] [address] documented in this encounter Visit Diagnoses Diagnosis High risk medication use Encounter for long-term (current) use of other medications documented in this encounter Care Teams Income Tax Manager Relationship Specialty Start Date End Date Tomas Hyman MD [address] [place] [address] PCP - General Family Medicine 09/05/18 Isidro Heredia MD Rheumatology 02/09/11 documented as of this encounter
--- OUTSIDE RECORDS SUMMARY | 2024-05-10 18:43 | XMS_ITS | Encounter Summary ---
Author Organization [facility] Address [address] [facility] [place] [address] Care Team Providers Care Associate Software Application Engineer Name Role Phone Isidro Heredia MD Unavailable [phone] Tomas Hyman MD Primary Care Provider [phone] Encounter Details Date Type Department Care Team (Latest Contact Info) Description 03/03/2022 12:05 PM CDT - 03/03/2022 11:59 PM CDT Hospital Encounter [facility] [address] [place], [place] [phone] [place] [address] [facility] [address] [place] [address] Discharge Disposition: Home or Self [...] León RN - 03/03/2022 12:15 PM CDT [facility] Pain Discharge [...] headache, or any other problems, please call [phone] or after hours callDr. Caldwell at [phone] and tell them your physician's name. The exchange will alert the physician quality control scientist. If sedation is given: No sedation given. [...] 1 (one) tablet by mouth at bedtime yyxiaszxrkv-noho-nf lysorb, PF, 0.5-1-0.5 % SOLN Instill 1 [...] st Contact Info) Description 06/03/2024 1:00 PM WHITEWASHER Appointment [facility] - Rheumatology [address] [place] [address] [phone] 06/03/2024 2:00 PM WHITEWASHER Office Visit [facility] - Rheumatology [address] [place] [address] [phone] Gloria Smith MD [address] [place] [phone] Pending Results Name Type Priority Associated Diagnoses [...] mg documented in this encounter Care Teams Associate Software Application Engineer Relationship Specialty Start Date End Date Tomas Hyman MD [address] [facility] [address] [place] [address] PCP - General Family Medicine 09/05/18 Isidro Heredia MD Rheumatology 02/09/11 documented as of this encounter
--- OUTSIDE RECORDS SUMMARY | 2024-05-10 18:43 | XMS_ITS | Encounter Summary ---
Author Organization [facility] Address [address] [facility] [place] [address] Care Team Providers Care Machine Shop Worker Name Role Phone Isidro Heredia MD Unavailable [phone] Tomas Hyman MD Primary Care Provider [phone] Reason for Visit * Treatment (Elective) - Closed Specialty Diagnoses / Procedures Referred By Lawrence shah Referred To Contact Diagnoses Rheumatoid arthritis without rheumatoid factor, multiple sites (HCC) Procedures [place] GOLIMUMAB FOR IV USE 1MG Gloria Smith MD [address] [place] [address] [address] Referral ID Status Reason Start Date Expiration Date Visits Re quested Visits Authorized [id number] Closed 05/18/2023 04/29/2024 8 8 Encounter Details Date Type Department Care Team (Late st Contact Info) Description 07/30/2023 1:51 PM CDT - 07/30/2023 11:59 PM CDT Hospital Encounter [facility] Medical [facility] - Rheumatology [address] [place] [address] Gloria Smith MD [address] [place] [address] Discharge Disposition: Home or Self [...] - 07/30/2023 2:21 PM CDT Discharge Instructions [facility] Rheumatology You have received your infusion [...] Sunday through Sunday-5 call the office at [phone]. After hours or on the weekend call [...] tablet by mouth 2 times daily 09/04/2022 cgveufuolzw-gxwx-itir sorb, PF, 0.5-1-0.5 % SOLN Instill 1 [...] 07/30/2023 2:31 PM CDT JOSE Chalino Deng [id number] 07/30/2023 Diagnosis: Rheumatoid arthritis without rheumatoid factor, [...] Contact Info) Description 06/03/2024 1:00 PM ADVERTISING VICE PRESIDENT Appointment [facility] - Rheumatology [address] [place] [address] [phone] 06/03/2024 2:00 PM ADVERTISING VICE PRESIDENT Office Visit [facility] - Rheumatology [address] [place] [address] Gloria Smith MD [address] [place] [phone] documented as of this encounter Visit Diagnoses [...] documented in this encounter Care Teams Machine Shop Worker Relationship Specialty Start Date End Date Tomas Hyman MD [address] [address] [address] [place] [address] PCP - General Family Medicine 09/05/18 Isidro Heredia MD Rheumatology 02/09/11 documented as of this encounter
--- OUTSIDE RECORDS SUMMARY | 2024-05-10 18:43 | XMS_ITS | Encounter Summary ---
Author Organization [facility] Address [address] [facility] [place] [address] Care Team Providers Care Senior Electronics Design Engineer Name Role Phone Isidro Heredia MD Unavailable [phone] Tomas Hyman MD Primary Care Provider [phone] Reason for Visit * Reason Onset Date Comments MEDICATION REFILL 11/13/2021 Encounter Details Date Type Department Care Team (Late st Contact Info) Description 11/13/2021 Refill [facility] - Rheumatology [address] [place] [address] Gloria Smith MD [address] [place] [phone] MEDICATION REFILL Social History Tobacco Use [...] 0.7 0.7 0.6 No results for input(s): [id number] in the last 67662 hours. No results for input(s): URICACID in the last 51557 hours. Last ESR: Recent Labs Component Name 02/08/21 1645 06/29/20 1410 02/06/20 1332 SEDRATE 5 13 12 Last 3 CRP: Recent Labs Component Name 02/08/21 1645 06/29/20 1410 02/06/20 1332 CRP <1 <0.20 0.21 documented in this encounter Plan of Treatment Upcoming Encounters Date Type Department Care Team (Late st Contact Info) Description 06/03/2024 1:00 PM SURGICAL FIRST ASSISTANT Appointment [facility] - Rheumatology [address] [place] [address] 06/03/2024 2:00 PM SURGICAL FIRST ASSISTANT Office Visit [facility] - Rheumatology [address] [place] [address] Gloria Smith MD [address] [place] [address] [phone] documented as of this encounter Visit Diagnoses Diagnosis Rheumatoid arthritis of multiple sites with negative rheumatoid factor (HCC) documented in this encounter Care Teams Senior Electronics Design Engineer Relationship Specialty Start Date End Date Tomas Hyman MD [address] [facility] [address] [place] [address] PCP - General Family Medicine 09/05/18 Isidro Heredia MD Rheumatology 02/09/11 documented as of this encounter
--- OUTSIDE RECORDS SUMMARY | 2024-05-10 18:43 | XMS_ITS | Encounter Summary ---
Author Organization [facility] Address [address] [facility] [place] [address] Care Team Providers Care Spinner Continuous Name Role Phone Isidro Heredia MD Unavailable [phone] Tomas Hyman MD Primary Care Provider [phone] Reason for Visit * Reason Onset Date Comments MEDICATION REFILL 06/04/2022 Encounter Details Date Type Department Care Team (Late st Contact Info) Description 06/04/2022 Refill [facility] Medical [facility] - Rheumatology [address] [place] [address] Gloria Smith MD [address] [place] [phone] MEDICATION REFILL Social History Tobacco Use [...] Coronavirus/COVID-19? No / Unsure 05/19/2022 10:58 AM STRUCTURAL STEEL DETAILER documented as of this encounter Miscellaneous Notes [...] 0.7 Recent Labs Component Name 02/10/22 0946 [id number] 52.1 No results for input(s): URICACID in the last 61770 hours. Last ESR: Recent Labs Component Name 02/08/21 1645 06/29/20 1410 02/06/20 1332 SEDRATE 5 13 12 Last 3 CRP: Recent Labs Component Name 02/08/21 1645 06/29/20 1410 02/06/20 1332 CRP <1 <0.20 0.21 CTURAL STEEL DETAILER * Telephone Encounter - Mariya Nichole MA - 06/05/2022 10:26 AM STRUCTURAL STEEL DETAILER Patient chart, labs and allergies reviewed and [...] 0.7 Recent Labs Component Name 02/10/22 0946 [id number] 52.1 No results for input(s): URICACID in the last 68901 hours. Last ESR: Recent Labs Component Name 02/08/21 1645 06/29/20 1410 02/06/20 1332 SEDRATE 5 13 12 Last 3 CRP: Recent Labs Component Name 02/08/21 1645 06/29/20 1410 02/06/20 1332 CRP <1 <0.20 0.21 Last Eye exam (if refill for hydroxychloroquine): JINA 05/19/22 Last refill 11/14/21 predisone, 02/28/22 tizanidine, 03/01/22 gabapentin Upcoming visit: 09/05/22 CTURAL STEEL DETAILER documented in this encounter Plan of Treatment Upcoming Encounters Date Type Department Care Team (Late st Contact Info) Description 06/03/2024 1:00 PM STRUCTURAL STEEL DETAILER Appointment [facility] - Rheumatology [address] [place] [address] [phone] 06/03/2024 2:00 PM STRUCTURAL STEEL DETAILER Office Visit [facility] - Rheumatology [address] [place] [address] Gloria Smith MD [address] [place] [phone] documented as of this encounter Results [...] of this report has been sent to [facility] Resulting Agency Comment Lab Testing performed at: [facility] [place] [address] [facility] ??[facility] [id number] Gloria Smith MD LAB - CHEMISTRY MARII ARAUJO [facility] INSURANCE BILL [address] [place] [address] * (ABNORMAL) CBC WITH DIFFERENTIAL (07/27/2022 2:53 [...] Resulting Agency Comment Lab Testing performed at: [facility] [place] [address] [facility] ??[facility] [id number] Gloria Smith MD LAB - HEMATOLOGY ORD ERABLES [facility] INSURANCE BILL [address] [place] [address] documented in this encounter Visit Diagnoses Diagnosis [...] medications documented in this encounter Care Teams Spinner Continuous Relationship Specialty Start Date End Date Tomas Hyman MD [address] [facility] [address] [place] [address] PCP - General Family Medicine 09/05/18 Isidro Heredia MD Rheumatology 02/09/11 documented as of this encounter
--- OUTSIDE RECORDS SUMMARY | 2024-05-10 18:43 | XMS_ITS | Encounter Summary ---
Author Organization [facility] Address [address] [place] [address] Care Team Providers Care Investigator Internal Revenue Name Role Phone Isidro Heredia MD Unavailable [phone] Tomas Hyman MD Primary Care Provider [phone] Reason for Visit * Reason Onset Date Comments Results 07/28/2021 Encounter Details Date Type Department Care Team (Late st Contact Info) Description 07/28/2021 Telephone [facility] - Family Medicine [address] [place] [address] Gloria Smith MD [address] [place] [phone] Results Social History Tobacco Use Types [...] st Contact Info) Description 06/03/2024 1:00 PM SOLDERER DIPPER Appointment [facility] - Rheumatology [address] [place] [address] 06/03/2024 2:00 PM SOLDERER DIPPER Office Visit [facility] - Rheumatology [address] [place] [address] Gloria Smith MD [address] [place] [phone] documented as of this encounter Visit Diagnoses Not on filedocumented in this encounter Care Teams Investigator Internal Revenue Relationship Specialty Start Date End Date Tomas Hyman MD [address] [facility] [address] [place] [address] PCP - General Family Medicine 09/05/18 Isidro Heredia MD Rheumatology 02/09/11 documented as of this encounter
--- OUTSIDE RECORDS SUMMARY | 2024-05-10 18:43 | XMS_ITS | Encounter Summary ---
Author Organization [facility] Address [address] [facility] [place] [address] Care Team Providers Care Messaging Architect Name Role Phone Isidro Heredia MD Unavailable [phone] Tomas Hyman MD Primary Care Provider [phone] Reason for Visit * Reason Onset Date Comments Medication Prior Auth Request 02/10/2022 Encounter Details Date Type Department Care Team (Late st Contact Info) Description 02/10/2022 Telephone [facility] - Rheumatology [address] [place] [address] Gloria Smith MD [address] [place] [phone] Medication Prior Auth Request Social History [...] Coronavirus/COVID-19? No / Unsure 05/19/2022 10:58 AM VP SCIENTIFIC documented as of this encounter Miscellaneous Notes * Telephone Encounter - Arian Fernando RN - 05/19/2022 12:49 PM CST Called the [facility] and spoke with Denise who verified that the Simponi Infusion plan was received. I was informed that the PA will be verified by the PA team at [facility] and then the patient contacted to schedule. SCIENTIFIC * Telephone Encounter - Gloria Smith MD - 05/19/2022 12:41 PM CST He is okay to have infusion at [facility]. I sent a therapy plan. No need to follow up PA. SCIENTIFIC * Telephone Encounter - Gloria Smith MD - 05/18/2022 9:04 PM CST Please follow up. SCIENTIFIC * Telephone Encounter - Gloria Smith MD - 02/10/2022 1:00 PM CDT Request simponi 2 mg/kg at weeks 0, 4, and then every 8 weeks. 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 documented in this encounter Plan of Treatment Upcoming Encounters Date Type Department Care Team (Late st Contact Info) Description 06/03/2024 1:00 PM VP SCIENTIFIC Appointment [facility] - Rheumatology [address] [place] [address] [phone] 06/03/2024 2:00 PM VP SCIENTIFIC Office Visit [facility] - Rheumatology [address] [place] [address] Gloria Smith MD [address] [place] [phone] documented as of this encounter Visit Diagnoses Not on filedocumented in this encounter Care Teams Messaging Architect Relationship Specialty Start Date End Date Tomas Hyman MD [address] [place] [address] PCP - General Family Medicine 09/05/18 Isidro Heredia MD Rheumatology 02/09/11 documented as of this encounter
--- OUTSIDE RECORDS SUMMARY | 2024-05-10 18:43 | XMS_ITS | Encounter Summary ---
Author Organization [facility] Address [address] [facility] [place] [address] Care Team Providers Care Lace Sewer Name Role Phone Isidro Heredia MD Unavailable [phone] Tomas Hyman MD Primary Care Provider [phone] Encounter Details Date Type Department Care Team [...] Contact Info) Description 06/03/2024 1:00 PM PHOTOGRAPHIC PROCESSOR Appointment [facility] Medical [facility] - Rheumatology [address] [place] [address] 06/03/2024 2:00 PM PHOTOGRAPHIC PROCESSOR Office Visit [facility] - Rheumatology [address] [place] [address] Gloria Smith MD [address] [place] [phone] documented as of this encounter Visit Diagnoses Not on filedocumented in this encounter Care Teams Lace Sewer Relationship Specialty Start Date End Date Tomas Hyman MD [address] [place] [address] PCP - General Family Medicine 09/05/18 Isidro Heredia MD Rheumatology 02/09/11 documented as of this encounter
--- OUTSIDE RECORDS SUMMARY | 2024-05-10 18:43 | XMS_ITS | Encounter Summary ---
Author Organization [facility] Address [address] [facility] [place] [address] Care Team Providers Care Dental Hygienist Name Role Phone Isidro Heredia MD Unavailable [phone] Tomas Hyman MD Primary Care Provider [phone] Reason for Visit * Reason Onset Date Comments Medication Prior Auth Request 09/05/2022 Encounter Details Date Type Department Care Team (Late st Contact Info) Description 09/05/2022 Telephone [facility] Medical [facility] - Rheumatology [address] [place] [address] Gloria Smith MD [address] [place] [phone] Medication Prior Auth Request Social History [...] PM CDT Please schedule simponi infusion at [facility] 8 weeks after his next infusion (10/04). documented in this encounter Plan of Treatment Upcoming Encounters Date Type Department Care Team (Late st Contact Info) Description 06/03/2024 1:00 PM SOCK KNITTING MACHINE OPERATOR Appointment [facility] - Rheumatology [address] [place] [address] [phone] 06/03/2024 2:00 PM SOCK KNITTING MACHINE OPERATOR Office Visit [facility] - Rheumatology [address] [place] [address] [phone] Gloria Smith MD [address] [place] [phone] documented as of this encounter Visit Diagnoses Not on filedocumented in this encounter Care Teams Dental Hygienist Relationship Specialty Start Date End Date Tomas Hyman MD [address] [place] [address] PCP - General Family Medicine 09/05/18 Isidro Heredia MD Rheumatology 02/09/11 documented as of this encounter
--- OUTSIDE RECORDS SUMMARY | 2024-05-10 18:43 | XMS_ITS | Encounter Summary ---
Author Organization [facility] Address [address] [place] [address] Care Team Providers Care Manager Market Development Name Role Phone Isidro Heredia MD Unavailable [phone] Tomas Hyman MD Primary Care Provider [phone] Encounter Details Date Type Department Care Team [...] st Contact Info) Description 06/03/2024 1:00 PM BAILIFF Appointment [facility] Medical [facility] - Rheumatology [address] [place] [address] 06/03/2024 2:00 PM BAILIFF Office Visit [facility] - Rheumatology [address] [place] [address] Gloria Smith MD [address] [place] [phone] documented as of this encounter Visit Diagnoses Not on filedocumented in this encounter Care Teams Manager Market Development Relationship Specialty Start Date End Date Tomas Hyman MD [address] [place] [address] PCP - General Family Medicine 09/05/18 Isidro Heredia MD Rheumatology 02/09/11 documented as of this encounter
--- OUTSIDE RECORDS SUMMARY | 2024-05-10 18:43 | XMS_ITS | Encounter Summary ---
Author Organization [facility] Address [address] [facility] [place] [address] Care Team Providers Care Oil Pipe Inspector Name Role Phone Isidro Heredia MD Unavailable [phone] Tomas Hyman MD Primary Care Provider [phone] Reason for Visit * Treatment (Elective) - Closed Specialty Diagnoses / Procedures Referred By Contsarahi t Referred To Contact Diagnoses Rheumatoid arthritis of multiple sites with negative rheumatoid factor (HCC) Procedures [place] GOLIMUMAB FOR IV USE 1MG Gloria Smith MD [address] [place] [address] [phone] Referral ID Status Reason Start Date Expiration Date Visits Re quested Visits Authorized [id number] Closed 05/22/2022 04/29/2023 12 12 Encounter Details Date Type Department Care Team (Latest Contact Info) Description 07/05/2022 10:42 AM OCEAN TRANSPORTATION INTERMEDIARY - 07/05/2022 11:59 PM OCEAN TRANSPORTATION INTERMEDIARY Hospital Encounter [facility] [address] [place] [address] Tomas Hyman MD [address] [place] [address] Discharge Disposition: Home or Self [...] Comments Blood Pressure 121/71 07/05/2022 10:45 AM OCEAN TRANSPORTATION INTERMEDIARY Pulse 78 07/05/2022 10:45 AM OCEAN TRANSPORTATION INTERMEDIARY Temperature 36.1 ??C (97 ??F) 07/05/2022 10:45 AM OCEAN TRANSPORTATION INTERMEDIARY Respiratory Rate 18 07/05/2022 10:45 AM OCEAN TRANSPORTATION INTERMEDIARY Oxygen Saturation 100% 07/05/2022 10:45 AM OCEAN TRANSPORTATION INTERMEDIARY Inhaled Oxygen Concentration - - Weight 95.3 kg (210 lb) 07/05/2022 10:45 AM OCEAN TRANSPORTATION INTERMEDIARY Height 177.8 cm (5' 10 ) 07/05/2022 10:45 AM OCEAN TRANSPORTATION INTERMEDIARY Body Mass Index 30.13 07/05/2022 10:45 AM OCEAN TRANSPORTATION INTERMEDIARY documented in this encounter Medications at Time of Discharge Medication Sig Dispensed Refills Start Date End Date aspirin EC (ECOTRIN) 81 MG tablet Take 1 (one) tablet by mouth once daily 90 tablet 11/14/2021 atorvastatin (LIPITOR) 40 MG tablet Take 1 (one) tablet by mouth at bedtime rqmgufcsfxe-xhqe-gy lysorb, PF, 0.5-1-0.5 % SOLN Instill 1 [...] PM CST Patient completed scheduled Simponi at [facility]. Please call with any questions [phone]. BP 121/71 Pulse 78 Temp 97 ??F Resp 18 Ht 1.778 m (5' 10 ) Wt 95.3 kg (210 lb) SpO2 100% Medications 0.9% NaCl injection 1-40 mL (10 mL Intracatheter $ Given 07/05/22 1224) golimumab (Simponi Aria) 190 mg in 0.9% NaCl IV 100 mL infusion (0 mg Intravenous Stopped 07/05/22 1151) N TRANSPORTATION INTERMEDIARY documented in this encounter Plan of Treatment Upcoming Encounters Date Type Department Care Team (Late st Contact Info) Description 06/03/2024 1:00 PM OCEAN TRANSPORTATION INTERMEDIARY Appointment [facility] - Rheumatology [address] [place] [address] 06/03/2024 2:00 PM OCEAN TRANSPORTATION INTERMEDIARY Office Visit [facility] - Rheumatology [address] [place] [address] Gloria Smith MD [address] [place] [phone] documented as of this encounter Visit [...] blood draws. $ Given 07/05/2022 12:24 PM OCEAN TRANSPORTATION INTERMEDIARY 10 mL $ Given 07/05/2022 10:51 AM OCEAN TRANSPORTATION INTERMEDIARY 10 mL golimumab (Simponi Aria) 190 mg [...] filter. $ New Bag/Syringe 07/05/2022 11:20 AM OCEAN TRANSPORTATION INTERMEDIARY 190 mg 200 mL/hr documented in this encounter Care Teams Oil Pipe Inspector Relationship Specialty Start Date End Date Tomas Hyman MD [address] [facility] [address] [place] [address] PCP - General Family Medicine 09/05/18 Isidro Heredia MD Rheumatology 02/09/11 documented as of this encounter
--- OUTSIDE RECORDS SUMMARY | 2024-05-10 18:43 | XMS_ITS | Encounter Summary ---
Author Organization [facility] Address [address] [facility] [place] [address] Care Team Providers Care Product Development Intern Name Role Phone Isidro Heredia MD Unavailable [phone] Tomas Hyman MD Primary Care Provider [phone] Reason for Referral * OP/Amb RFL Auth (Routine) - Pending Review Specialty Diagnoses / Procedures Referred By Contsarahi t Referred To Contact Diagnoses Right shoulder pain, unspecified chronicity Procedures PA DRAIN/INJECT LARGE JOINT/BURSA Gloria Smith MD [address] [place] [address] Referral ID Status Reason Start Date Expiration Date V isits Requested Visits Authorized [id number] Pending Review 05/29/2023 05/28/2024 1 1 E ANALYST Reason for Visit * Reason Comments Arthritis Encounter Details Date Type Department Care Team (Late st Contact Info) Description 05/29/2023 1:40 PM PRICE ANALYST Office Visit [facility] - Rheumatology [address] [place] [address] Gloria Smith MD [facility] [place] [address] Rheumatoid arthritis of multiple sites [...] improve after steroid injection and simponi infusion. E ANALYST * Gloria Smith MD - 05/29/2023 1:42 [...] radiation therapy. Will schedule follow up with [facility] at [address] [place] [address]. Having more back pain and stiffness for [...] History: Diagnosis Date ??? RA (rheumatoid arthritis) ([facility]) Past Surgical History: Procedure Laterality Date [...] results to us. - took alendronate from [id number]. E ANALYST documented in this encounter Plan of Treatment Upcoming Encounters Date Type Department Care Team (Late st Contact Info) Description 06/03/2024 1:00 PM PRICE ANALYST Appointment [facility] - Rheumatology [address] [place] [address] 06/03/2024 2:00 PM PRICE ANALYST Office Visit [facility] - Rheumatology [address] [place] [address] Gloria Smith MD [address] [place] [address] Scheduled Orders Name Type Priority Associated [...] C-REACTIVE PROTEIN Routine 05/29/2023 2: 35 PM PRICE ANALYST Rheumatoid arthritis of multiple sites with negative rheumatoid factor (HCC) ERYTHROCYTE SEDIMENTATION RATE Routine 05/29/2023 2:35 PM PRICE ANALYST Rheumatoid arthritis of multiple sites with negative rheumatoid factor (HCC) CBC W AUTO DIFFERENTIAL Routine 05/29/2023 2:35 PM PRICE ANALYST Rheumatoid arthritis of multiple sites with negative rheumatoid factor (HCC) COMPREHENSIVE METABOLIC PANEL Routine 05/29/2023 2:35 PM PRICE ANALYST Rheumatoid arthritis of multiple sites with negative [...] 6:08 PM CDT Performed at: ?? [facility] [place] [address] , [place], [place] ??[id number] Pit Crew Support Worker: Sanchez [facility], Phone: ??[phone] Gloria Smith MD LAB - CHEMISTRY MARII ARAUJO [facility] INSURANCE BILL [address] [place] [address] * (ABNORMAL) CBC WITH DIFFERENTIAL (01/29/2024 10:37 [...] 6:08 PM CDT Performed at: ??01 - [place] [address] [place], [place] ??[id number] Pit Crew Support Worker: Sanchez Wagner [facility], Phone: ??[phone] Gloria Smith MD LAB - HEMATOLOGY ORD ERABLES [facility] INSURANCE BILL [address] [place] [address] * (ABNORMAL) COMPREHENSIVE METABOLIC PANEL (09/17/2023 2:54 [...] Resulting Agency Comment Lab [facility] performed at: [facility] [address] [facility] ??[facility] [phone] Gloria Smith MD LAB - CHEMISTRY MARII ARAUJO [facility] INSURANCE BILL [address] [place] [address] * (ABNORMAL) CBC WITH DIFFERENTIAL (09/17/2023 2:54 [...] Resulting Agency Comment Lab Testing performed at: [facility] [address] [facility] ??[facility] [phone] Gloria Smith MD LAB - HEMATOLOGY ORD ERABLES [facility] INSURANCE BILL [address] [place] [address] * COMPREHENSIVE METABOLIC PANEL (07/12/2023 3:20 PM [...] Agency Comment Lab Testing performed at: [facility] [address] ??[facility] [phone] Gloria Smith MD LAB - CHEMISTRY MARII ARAUJO [facility] INSURANCE BILL [address] [place] [address] * CBC WITH DIFFERENTIAL (07/12/2023 3:20 PM [...] Agency Comment Lab Testing performed at: [facility] [address] [facility] ??[facility] [phone] Gloria Smith MD LAB - HEMATOLOGY ORD ERABLES [facility] INSURANCE BILL [address] [place] [address] * C-REACTIVE PROTEIN (05/29/2023 2:35 PM PRICE ANALYST) C-Reactive Protein 0.49 <=0.50 mg/dL [facility] INSURANCE BILL Blood BLOOD SPECIMEN / Unknown 05/29/2023 2:35 PM PRICE ANALYST 05/29/2023 Narrative Resulting Agency Comment Lab Testing performed at: [place] [address] ?? [place] [phone] Gloria Smith MD LAB - CHEMISTRY MARII ARAUJO Performing Organization Address [facility] Co de Phone Number [facility] INSURANCE BILL [address] [place] [address] * (ABNORMAL) ERYTHROCYTE SEDIMENTATION RATE (05/29/2023 2:35 PM PRICE ANALYST) Erythrocyte Sedimentation Rate Westergren 23(H) 0 - 20 MM/HR [facility] INSURANCE BILL Blood BLOOD SPECIMEN / Unknown 05/29/2023 2:35 PM PRICE ANALYST 05/29/2023 Narrative Resulting Agency Comment Lab Testing performed at: [facility] [address] ?? [place] [id number] Gloria Smith MD LAB - HEMATOLOGY ORD ERABLES Performing Organization Address City/[facility]/ZIP Co de Phone Number [facility] INSURANCE BILL [address] [place] [address] * (ABNORMAL) COMPREHENSIVE METABOLIC PANEL (05/29/2023 2:35 PM PRICE ANALYST) Glucose 107(H) 70 - 105 mg/dL [facility] [...] BLOOD SPECIMEN / Unknown 05/29/2023 2:35 PM PRICE ANALYST 05/29/2023 Narrative Resulting Agency Comment Lab Testing performed at: [address] ?? [facility] [phone] Gloria Smith MD LAB - CHEMISTRY MARII ARAUJO [facility] INSURANCE BILL [address] [place] [address] * (ABNORMAL) CBC WITH DIFFERENTIAL (05/29/2023 2:35 PM PRICE ANALYST) Pathologist [facility] WBC 8.7 4.0 - 10.7 x10E9/L [facility] [...] BLOOD SPECIMEN / Unknown 05/29/2023 2:35 PM PRICE ANALYST 05/29/2023 Narrative Resulting Agency Comment Lab Testing performed at: [place] [address] [address] ?? [place] PENNY [phone] Gloria Smith MD LAB - HEMATOLOGY ORD ERABLES [facility] INSURANCE BILL [address] [place] [address] documented in this encounter Visit Diagnoses Diagnosis [...] at 1700 $ Given 05/29/2023 8:34 AM PRICE ANALYST Right Shoulder methylPREDNISolone acetate (DEPO-Medrol) injection 40 mg 40 mg, Intra-articular, ONCE, 1 dose, On Sun05/29/23 at 1700 $ Given 05/29/2023 8:36 AM PRICE ANALYST 40 mg Ri ght Shoulder documented in this encounter Care Teams Product Development Intern Relationship Specialty Start Date End Date Tomas Hyman MD [address] [facility] [address] [place] [address] PCP - General Family Medicine 09/05/18 Isidro Heredia MD Rheumatology 02/09/11 documented as of this encounter
--- OUTSIDE RECORDS SUMMARY | 2024-05-10 18:43 | XMS_ITS | Encounter Summary ---
Author Organization [facility] Address [address] [facility] [place] [address] Care Team Providers Care Elementary Reading Specialist Name Role Phone Isidro Heredia MD Unavailable [phone] Tomas Hyman MD Primary Care Provider [phone] Encounter Details Date Type Department Care Team [...] st Contact Info) Description 06/03/2024 1:00 PM GEOLOGY SCIENTIST Appointment [facility] - Rheumatology [address] [place] [address] 06/03/2024 2:00 PM GEOLOGY SCIENTIST Office Visit [facility] - Rheumatology [address] [place] [address] Gloria Smtih MD [address] [place] [phone] documented as of this encounter Visit Diagnoses Not on filedocumented in this encounter Care Teams Elementary Reading Specialist Relationship Specialty Start Date End Date Tomas Hyman MD [address] [place] [address] PCP - General Family Medicine 09/05/18 Isidro Heredia MD Rheumatology 02/09/11 documented as of this encounter
--- OUTSIDE RECORDS SUMMARY | 2024-05-10 18:43 | XMS_ITS | Encounter Summary ---
Author Organization [facility] Address [address] [place] [address] Care Team Providers Care Special Education Aide Name Role Phone Isidro Heredia MD Unavailable [phone] Tomas Hyman MD Primary Care Provider [phone] Encounter Details Date Type Department Care Team (Late Contact Info) Description 12/10/2023 Orders Only [facility] - Rheumatology [address] [place] [address] Gloria Smith MD [address] [place] [phone] Rheumatoid arthritis of multiple sites with [...] (Late Contact Info) Description 06/03/2024 1:00 PM SLEEVE WHEEL MAKER Appointment [facility] - Rheumatology [address] [place] [address] 06/03/2024 2:00 PM SLEEVE WHEEL MAKER Office Visit [facility] - Rheumatology [address] [place] [address] [place] [address] Gloria Smith MD [address] [place] [address] documented as of this encounter Visit Diagnoses Diagnosis Rheumatoid arthritis of multiple sites with negative rheumatoid factor (HCC) documented in this encounter Care Teams Special Education Aide Relationship Specialty Start Date End Date Tomas Hyman MD [address] [facility] [address] [place] [address] PCP - General Family Medicine 09/05/18 Isidro Heredia MD Rheumatology 02/09/11 documented as of this encounter
--- OUTSIDE RECORDS SUMMARY | 2024-05-10 18:43 | XMS_ITS | Encounter Summary ---
Author Organization [facility] Address [address] [facility] [place] [address] Care Team Providers Care Inspector Eyeglass Name Role Phone Isidro Heredia MD Unavailable [phone] Tomas Hyman MD Primary Care Provider [phone] Reason for Visit * Reason Onset Date Comments Medication Prior Auth Request 06/03/2021 Encounter Details Date Type Department Care Team (Late st Contact Info) Description 06/03/2021 Telephone [facility] Medical [facility] - Rheumatology [address] [place] [address] Gloria Dillon MD [address] [place] [address] Medication Prior Auth Request Social History [...] COVID-19? No / Unsure 06/03/2021 12:36 PM POWERHOUSE ELECTRICIAN APPRENTICE documented as of this encounter Miscellaneous Notes * Telephone Encounter - Carey Loza - 06/16/2021 12:06 PM CST Left message for patient to call RHOUSE ELECTRICIAN APPRENTICE * Addendum Note - Gloria Dillon MD - 06/10/2021 10:45 AM CSTAddended by: GLORIA DILLON on: 06/10/2021 10:45 AM Modules accepted: Orders RHOUSE ELECTRICIAN APPRENTICE * Telephone Encounter - Gloria Dillon MD - 06/10/2021 10:45 AM CST Please explain to him. RHOUSE ELECTRICIAN APPRENTICE * Telephone Encounter - Denisa Mirza - [...] Approved through [place] already on File from 07/04/[id number] Submitted via: Insurance: [facility] Case Number: not avialable Helpdesk: [phone] RHOUSE ELECTRICIAN APPRENTICE * Telephone Encounter - Gloria Dillon MD - 06/03/2021 1:12 PM CST Request humira 40mg every 14 weeks. 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 RHOUSE ELECTRICIAN APPRENTICE documented in this encounter Plan of Treatment Upcoming Encounters Date Type Department Care Team (Late st Contact Info) Description 06/03/2024 1:00 PM POWERHOUSE ELECTRICIAN APPRENTICE Appointment [facility] - Rheumatology [address] [place] [address] [phone] 06/03/2024 2:00 PM POWERHOUSE ELECTRICIAN APPRENTICE Office Visit [facility] - Rheumatology [address] [place] [address] Gloria Dillon MD [address] [place] [phone] documented as of this encounter Visit Diagnoses Not on filedocumented in this encounter Care Teams Inspector Eyeglass Relationship Specialty Start Date End Date Tomas Hyman MD [address] [place] [address] PCP - General Family Medicine 09/05/18 Isidro Heredia MD Rheumatology 02/09/11 documented as of this encounter
--- OUTSIDE RECORDS SUMMARY | 2024-05-10 18:43 | XMS_ITS | Encounter Summary ---
Author Organization [facility] Address [address] [facility] [place] [address] Care Team Providers Care Apprenticeship Representative Name Role Phone Isidro Heredia MD Unavailable [phone] Tomas Hyman MD Primary Care Provider [phone] Reason for Visit * Reason Onset Date Comments MEDICATION REFILL 11/27/2022 Encounter Details Date Type Department Care Team (Late st Contact Info) Description 11/27/2022 Refill [facility] Medical [facility] - Rheumatology [address] [place] [address] Gloria Smith MD [address] [place] [phone] MEDICATION REFILL Social History Tobacco Use [...] Contact Info) Description 06/03/2024 1:00 PM PATENT SEARCHER Appointment [facility] - Rheumatology [address] [place] [address] 06/03/2024 2:00 PM PATENT SEARCHER Office Visit [facility] - Rheumatology [address] [place] [address] Gloria Smith MD [address] [place] [phone] documented as of this encounter Visit Diagnoses Diagnosis Rheumatoid arthritis of multiple sites with negative rheumatoid factor (HCC) Neuropathy Mononeuritis of unspecified site documented in this encounter Care Teams Apprenticeship Representative Relationship Specialty Start Date End Date Tomas Hyman MD [address] [place] [address] PCP - General Family Medicine 09/05/18 Isidro Heredia MD Rheumatology 02/09/11 documented as of this encounter
--- OUTSIDE RECORDS SUMMARY | 2024-05-10 18:43 | XMS_ITS | Encounter Summary ---
Author Organization [facility] Address [address] [facility] [place] [address] Care Team Providers Care Loss Prevention Research Engineer Name Role Phone Isidro Heredia MD Unavailable [phone] Tomas Hyman MD Primary Care Provider [phone] Encounter Details Date Type Department Care Team [...] st Contact Info) Description 06/03/2024 1:00 PM FLAME CUTTING MACHINE OPERATOR HELPER Appointment [facility] Medical [facility] - Rheumatology [address] [place] [address] 06/03/2024 2:00 PM FLAME CUTTING MACHINE OPERATOR HELPER Office Visit [facility] Medical [facility] - Rheumatology [address] [place] [address] Gloria Smith MD [address] [place] [phone] documented as of this encounter Visit Diagnoses Not on filedocumented in this encounter Care Teams Loss Prevention Research Engineer Relationship Specialty Start Date End Date Tomas Hyman MD [address] [place] [address] PCP - General Family Medicine 09/05/18 Isidro Heredia MD Rheumatology 02/09/11 documented as of this encounter
--- OUTSIDE RECORDS SUMMARY | 2024-05-10 18:43 | XMS_ITS | Encounter Summary ---
Author Organization [facility] Address [address] [facility] [place] [address] Care Team Providers Care Timber Spotter Name Role Phone Isidro Heredia MD Unavailable [phone] Tomas Hyman MD Primary Care Provider [phone] Encounter Details Date Type Department Care Team [...] COVID-19? No / Unsure 06/03/2021 12:36 PM PUBLIC HEALTH DENTIST documented as of this encounter Plan of Treatment Upcoming Encounters Date Type Department Care Team (Late st Contact Info) Description 06/03/2024 1:00 PM PUBLIC HEALTH DENTIST Appointment [facility] - Rheumatology [address] [place] [address] 06/03/2024 2:00 PM PUBLIC HEALTH DENTIST Office Visit [facility] - Rheumatology [address] [place] [address] Gloria Smith MD [address] [place] [phone] documented as of this encounter Visit Diagnoses Not on filedocumented in this encounter Care Teams Timber Spotter Relationship Specialty Start Date End Date Tomas Hyman MD [address] [place] [address] PCP - General Family Medicine 09/05/18 Isidro Heredia MD Rheumatology 02/09/11 documented as of this encounter
--- OUTSIDE RECORDS SUMMARY | 2024-05-10 18:43 | XMS_ITS | Encounter Summary ---
Author Organization [facility] Address [address] [facility] [place] [address] Care Team Providers Care Medical Lab Specialist Name Role Phone Isidro Heredia MD Unavailable [phone] Tomas Hyman MD Primary Care Provider [phone] Reason for Visit * Treatment (Elective) - Closed Specialty Diagnoses / Procedures Referred By Lawrence shah Referred To Contact Diagnoses Rheumatoid arthritis of multiple sites with negative rheumatoid factor (HCC) Procedures [place] GOLIMUMAB FOR IV USE 1MG Gloria Smith MD [address] [place] [address] [address] Referral ID Status Reason Start Date Expiration Date Visits Re quested Visits Authorized [id number] Closed 05/22/2022 04/29/2023 12 12 Encounter Details Date Type Department Care Team (Late st Contact Info) Description 01/30/2023 9:31 AM CDT - 01/30/2023 11:59 PM CDT Hospital Encounter [facility] Medical [facility] - Rheumatology [address] [place] [address] Gloria Smith MD [address] [place] [address] Rheumatology Discharge Disposition: Home or [...] Body Mass Index 29.13 07/05/2022 10:45 AM MERCURY CRACKING TESTER documented in this encounter Discharge Instructions * Discharge Instructions* Shelby Higgins RN - 01/30/2023 10:17 AM CDT Discharge Instructions [facility] - [...] Sunday through 01-02 call the office at [phone]. After hours or on the weekend call [...] tablet by mouth 2 times daily 09/04/2022 fngenwqghyj-eopq-lary sorb, PF, 0.5-1-0.5 % SOLN Instill 1 [...] - 01/30/2023 10:19 AM CDT JOSE Deng [id number] 01/30/2023 Diagnosis: Rheumatoid arthritis without rheumatoid factor, [...] st Contact Info) Description 06/03/2024 1:00 PM MERCURY CRACKING TESTER Appointment [facility] - Rheumatology [address] [place] [address] [phone] 06/03/2024 2:00 PM MERCURY CRACKING TESTER Office Visit [facility] - Rheumatology [address] [place] [address] Gloria Smith MD [address] [place] [phone] documented as of this encounter Visit Diagnoses [...] documented in this encounter Care Teams Medical Lab Specialist Relationship Specialty Start Date End Date Tomas Hyman MD [address] [place] [address] [address] [place] [address] PCP - General Family Medicine 09/05/18 Isidro Heredia MD Rheumatology 02/09/11 documented as of this encounter
--- OUTSIDE RECORDS SUMMARY | 2024-05-10 18:43 | XMS_ITS | Encounter Summary ---
Author Organization [facility] Address [address] [place] [address] Care Team Providers Care Gum Remover Name Role Phone Isidro Heredia MD Unavailable [phone] Tomas Hyman MD Primary Care Provider [phone] Reason for Visit * Treatment (Elective) - Closed Specialty Diagnoses / Procedures Referred By Lawrence shah Referred To Contact Diagnoses Rheumatoid arthritis without rheumatoid factor, multiple sites (HCC) Procedures [place] GOLIMUMAB FOR IV USE 1MG Gloria Smith MD [address] [place] [address] [address] Referral ID Status Reason Start Date Expiration Date Visits Re quested Visits Authorized [id number] Closed 05/18/2023 04/29/2024 8 8 Encounter Details Date Type Department Care Team (Late st Contact Info) Description 11/23/2023 10:52 AM CDT - 11/23/2023 11:59 PM CDT Hospital Encounter [facility] Medical [facility] - Rheumatology [address] [place] [address] Gloria Smith MD [address] [place] [address] Rheumatology Discharge Disposition: Home or [...] - 11/23/2023 11:21 AM CDT Discharge Instructions [facility] Rheumatology You have received your [...] through Sunday 9-5 call the office at [phone]. After hours or on the weekend call [...] tablet by mouth 2 times daily 09/04/2022 mvjwnxqtocx-wuui-dpbx sorb, PF, 0.5-1-0.5 % SOLN Instill 1 [...] - 11/23/2023 11:21 AM CDT JOSE Deng [id number] 11/23/2023 Diagnosis: Rheumatoid arthritis without rheumatoid factor, multiple sites (HCC) [M06.09]. Pt denies symptoms of infection or antibiotic use, no open wounds, or recent surgery, or plans for surgery in the next couple of weeks. Pt is aware that we use the 0-10 pain scale to assess discomfort. 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 lead front desk agent pt signs consent for [...] Contact Info) Description 06/03/2024 1:00 PM OFFICE SUPPORT ASSOCIATE Appointment [facility] - Rheumatology [address] [place] [phone] 06/03/2024 2:00 PM OFFICE SUPPORT ASSOCIATE Office Visit [facility] - Rheumatology [address] [place] [address] [phone] Gloria Smith MD [address] [place] [phone] documented as of this encounter Visit Diagnoses [...] mL/hr documented in this encounter Care Teams Gum Remover Relationship Specialty Start Date End Date Tomas Hyman MD [address] [place] [address] PCP - General Family Medicine 09/05/18 Isidro Heredia MD Rheumatology 02/09/11 documented as of this encounter
--- OUTSIDE RECORDS SUMMARY | 2024-05-10 18:43 | XMS_ITS | Encounter Summary ---
Author Organization [facility] Address [address] [facility] [place] [address] Care Team Providers Care Visually Impaired Teacher Name Role Phone Isidro Heredia MD Unavailable [phone] Tomas Hyman MD Primary Care Provider [phone] Reason for Visit * Reason Onset Date Comments MEDICATION REFILL 08/03/2021 Encounter Details Date Type Department Care Team (Late st Contact Info) Description 08/03/2021 Refill [facility] Medical [facility] - Rheumatology [address] [place] [address] Gloria Smith MD [address] [place] [phone] MEDICATION REFILL Social History Tobacco Use [...] 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 NON-BIOLOGIC REFILL REQUEST Last OV: [...] ec,pantoprazole ec,methotrexate 06/14/2020 gabapentin,prednisone,celecoxib 10-19-2020 folic acid [id number] Upcoming visit: 09-02-2021 documented in this encounter Plan of Treatment Upcoming Encounters Date Type Department Care Team (Late st Contact Info) Description 06/03/2024 1:00 PM DEVELOPER ARCHITECT Appointment [facility] - Rheumatology [address] [place] [address] 06/03/2024 2:00 PM DEVELOPER ARCHITECT Office Visit [facility] - Rheumatology [address] [place] [address] Gloria Smith MD [facility] [place] [phone] documented as of this encounter Visit Diagnoses Diagnosis Rheumatoid arthritis of multiple sites with negative rheumatoid factor (HCC) documented in this encounter Care Teams Visually Impaired Teacher Relationship Specialty Start Date End Date Tomas Hyman MD [address] [place] [address] PCP - General Family Medicine 09/05/18 Isidro Heredia MD Rheumatology 02/09/11 documented as of this encounter
--- OUTSIDE RECORDS SUMMARY | 2024-05-10 18:43 | XMS_ITS | Encounter Summary ---
Author Organization [facility] Address [address] [facility] [place] [address] Care Team Providers Care Client Delivery Manager Name Role Phone Isidro Heredia MD Unavailable [phone] Tomas Hyman MD Primary Care Provider [phone] Reason for Visit * Reason Comments Follow-up Encounter Details Date Type Department Care Team (Late st Contact Info) Description 09/02/2021 11:00 AM CDT Office Visit [facility] - Rheumatology [address] [place] [address] Gloria Smith MD [address] [place] [phone] Rheumatoid arthritis of multiple sites with [...] ordered prednisone 60 mg taper, pending his customer service clerk's approval. Followed by 5 mg b.i.d. at baseline. - he can increase tizanidine to 4 mg b.i.d. p.r.n.. Osteoporosis - Will repeat DEXA bone density scan - took alendronate from 8537-7792. The total time spent today was 40 minutes performing chart prep, review of data and visit with the patient. documented in this encounter Plan of Treatment Upcoming Encounters Date Type Department Care Team (Late st Contact Info) Description 06/03/2024 1:00 PM PHYSICAL THERAPY PROFESSOR Appointment [facility] - Rheumatology [address] [place] [address] [phone] 06/03/2024 2:00 PM PHYSICAL THERAPY PROFESSOR Office Visit [facility] - Rheumatology [address] [place] [address] [phone] Gloria Smith MD [address] [place] [phone] documented as of this encounter Visit Diagnoses Diagnosis Rheumatoid arthritis of multiple sites with negative rheumatoid factor (HCC)- Primary documented in this encounter Care Teams Client Delivery Manager Relationship Specialty Start Date End Date Tomas Hyman MD [address] [place] [address] PCP - General Family Medicine 09/05/18 Isidro Heredia MD Rheumatology 02/09/11 documented as of this encounter
--- OUTSIDE RECORDS SUMMARY | 2024-05-10 18:43 | XMS_ITS | Encounter Summary ---
Author Organization [facility] Address [address] [facility] [place] [address] Care Team Providers Care Answerer Name Role Phone Isidro Heredia MD Unavailable [phone] Tomas Hyman MD Primary Care Provider [phone] Reason for Visit * Reason Onset Date Comments MEDICATION REFILL 02/16/2024 Encounter Details Date Type Department Care Team (Late st Contact Info) Description 02/16/2024 Refill [facility] Medical [facility] - Rheumatology [address] [place] [address] Gloria Smith MD [address] [place] [phone] MEDICATION REFILL Social History Tobacco Use [...] Contact Info) Description 06/03/2024 1:00 PM SAFETY PERSON Appointment [facility] - Rheumatology [address] [place] [address] [phone] 06/03/2024 2:00 PM SAFETY PERSON Office Visit [facility] - Rheumatology [address] [place] [address] [phone] Gloria Smith MD [address] [place] [phone] documented as of this encounter Visit Diagnoses Diagnosis High risk medication use Encounter for long-term (current) use of other medications Chronic neck pain Cervicalgia Chronic back pain, unspecified back location, unspecified back pain laterality Rheumatoid arthritis of 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
--- OUTSIDE RECORDS SUMMARY | 2024-05-10 18:43 | XMS_ITS | Encounter Summary ---
Author Organization [facility] Address [address] [facility] [place] [address] Care Team Providers Care Power Generation Turbine Room Operator Name Role Phone Isidro Heredia MD Unavailable [phone] Tomas Hyman MD Primary Care Provider [phone] Reason for Visit * Reason Onset Date Comments General 11/28/2022 Encounter Details Date Type Department Care Team (Late st Contact Info) Description 11/28/2022 Telephone [facility] Medical [facility] - Rheumatology [address] [place] [address] Gloria mSith MD [address] [place] [phone] General Social History Tobacco Use Types [...] Contact Info) Description 06/03/2024 1:00 PM NURSE ESTHETICIAN Appointment [facility] - Rheumatology [address] [place] [address] [phone] 06/03/2024 2:00 PM NURSE ESTHETICIAN Office Visit [facility] - Rheumatology [address] [place] [address] Gloria Smith MD [address] [place] [address] [phone] documented as of this encounter Procedures Procedure [...] Resulting Agency Comment Lab Testing performed at: [facility] [address] [address] ?? Ziyad PENNY [phone] Gloria Smith MD LAB - CHEMISTRY MARII ARAUJO [facility] INSURANCE BILL [address] [place] [address] * ERYTHROCYTE SEDIMENTATION RATE (11/29/2022 9:11 AM CDT) Erythrocyte Sedimentation Rate Westergren 11 0 - 20 MM/HR [facility] INSURANCE BILL Blood BLOOD SPECIMEN / Unknown 11/29/2022 9:11 AM CDT 11/29/2022 Narrative Resulting Agency Comment Lab Testing performed at: [facility] [address] [address] ?? [facility] [phone] Gloria Smith MD LAB - HEMATOLOGY ORD ERABLES [facility] INSURANCE BILL [address] [place] [address] * COMPREHENSIVE METABOLIC PANEL (11/29/2022 9:11 AM [...] Agency Comment Lab Testing performed at: [facility] [address] [facility] [phone] Gloria Smith MD LAB - CHEMISTRY MARII ARAUJO [facility] INSURANCE BILL [address] [place] [address] * (ABNORMAL) CBC WITH DIFFERENTIAL (11/29/2022 9:11 [...] x10E9/L [facility] INSURANCE BILL Comment:MPV [place] BLOOD ([facility]) 1 1.3 fl 9.4-12.9 Granulocytes % 35.2(L) [...] Agency Comment Lab Testing performed at: [facility] [address] [facility] ?? [facility] [phone] Gloria Smith MD LAB - HEMATOLOGY ORD ERABLES [facility] INSURANCE BILL [address] [place] [address] documented in this encounter Visit Diagnoses Diagnosis Rheumatoid arthritis of multiple sites with negative rheumatoid factor (HCC)- Primary documented in this encounter Care Teams Power Generation Turbine Room Operator Relationship Specialty Start Date End Date Tomas Hyman MD [address] [facility] [address] [place] [address] PCP - General Family Medicine 09/05/18 Isidro Heredia MD Rheumatology 02/09/11 documented as of this encounter
--- OUTSIDE RECORDS SUMMARY | 2024-05-10 18:43 | XMS_ITS | Encounter Summary ---
Author Organization [facility] Address [address] [facility] [place] [address] Care Team Providers Care Group Counselor Name Role Phone Isidro Heredia MD Unavailable [phone] Tomas Hyman MD Primary Care Provider [phone] Reason for Visit * Treatment (Elective) - Closed Specialty Diagnoses / Procedures Referred By Lawrence shah Referred To Contact Diagnoses Rheumatoid arthritis without rheumatoid factor, multiple sites (HCC) Procedures ME GOLIMUMAB FOR IV USE 1MG Gloria Smith MD [address] [place] [address] [phone] Referral ID Status Reason Start Date Expiration Date Visits Re quested Visits Authorized [id number] Closed 05/18/2023 04/29/2024 8 8 Encounter Details Date Type Department Care Team (Late st Contact Info) Description 04/04/2024 9:45 AM ASSIGNER - 04/04/2024 11:59 PM ASSIGNER Hospital Encounter [facility] Medical [facility] - Rheumatology [address] [place] [address] Gloria Smith MD [address] [place] [address] Rheumatology Discharge Disposition: Home or [...] Comments Blood Pressure 144/83 04/04/2024 10:23 AM ASSIGNER Pulse 82 04/04/2024 10:23 AM ASSIGNER Temperature 36.8 ??C (98.2 ??F) 04/04/2024 1 0:23 AM ASSIGNER Respiratory Rate - - Oxygen Saturation - - Inhaled Oxygen Concentration - - Weight 106.4 kg (234 lb 9.6 oz) 024 10:23 AM ASSIGNER Height - - Body Mass Index 33.66 02/08/2024 11:48 AM CDT documented in this encounter Discharge Instructions * Discharge Instructions* Shelby Higgins RN - 04/04/2024 10:29 AM ASSIGNER Discharge Instructions [facility] Rheumatology You [...] through Sunday 9-5 call the office at [phone]. After hours or on the weekend call [...] have chosen Enedina Padilla as your Provider GNER documented in this encounter Medications at Time of Discharge Medication Sig Dispensed Refills Start Date End Date aspirin EC (ECOTRIN) 81 MG tablet Take 1 (one) tablet by mouth once daily 90 tablet 11/14/2021 atorvastatin (LIPITOR) 40 MG tablet Take 1 (one) tablet by mouth at bedtime buPROPion (Wellbutrin) 100 MG tablet Take 1 (one) tablet by mouth 2 times daily 09/04/2022 afcvnwirtbz-ioew-dcj ysorb, PF, 0.5-1-0.5 % SOLN Instill 1 [...] - 04/04/2024 10:29 AM CST JOSE Deng [id number] 04/04/2024 Diagnosis: Rheumatoid arthritis without rheumatoid factor, [...] treatment? Q 8 weeks Shelby Higgins RN GNER documented in this encounter Plan of Treatment Upcoming Encounters Date Type Department Care Team (Late st Contact Info) Description 06/03/2024 1:00 PM ASSIGNER Appointment [facility] - Rheumatology [address] [place] [address] [phone] 06/03/2024 2:00 PM ASSIGNER Office Visit [facility] - Rheumatology [address] [place] [address] [phone] Gloria Smith MD [address] [place] [phone] documented as of this encounter Visit Diagnoses [...] filter. $ New Bag/Syringe 04/04/2024 10:34 AM ASSIGNER 212.5 mg 200 mL/hr documented in this encounter Care Teams Group Counselor Relationship Specialty Start Date End Date Tomas Hyman MD [address] [place] [address] PCP - General Family Medicine 09/05/18 Isidro Heredia MD Rheumatology 02/09/11 documented as of this encounter
--- OUTSIDE RECORDS SUMMARY | 2024-05-10 18:43 | XMS_ITS | Encounter Summary ---
Author Organization [facility] Address [address] [place] [address] Care Team Providers Care Site Safety Coordinator Name Role Phone Isidro Heredia MD Unavailable Tomas Hyman MD Primary Care Provider [phone] Encounter Details Date Type Department Care Team (Latest Contact Info) Description 03/03/2022 12:00 PM CDT - 03/03/2022 12:04 PM CDT Hospital Encounter [facility] [address] [place], [place] [phone] [place] [address] [facility] [address] [place] [address] Discharge Disposition: Home or Self [...] 1 (one) tablet by mouth at bedtime qqyynzfkues-wnxv-gh lysorb, PF, 0.5-1-0.5 % SOLN Instill 1 [...] , Total Score: 0 label= PHQ-9 propId= [id number] catId= [id number] encId= [id number] PHQ-9 Thoughts that you would be better [...] complaining of value= options= propid= 91 itemid= [id number] categoryid= [id number] encounterid= [id number] Patient complaining of severe pain,depressed mood related [...] changes and grimacing label= GENERAL APPEARANCE: categoryPropId= [id number] examid= [id number] GENERAL APPEARANCE: alert, oriented x 3, appears to be in pain based on postural changes and grimacing. NC/AT, Symmetrical. label= HEAD: categoryPropId= [id number] examid= [id number] HEAD: NC/AT, Symmetrical.. Hearing intact. label= EARS: categoryPropId= [id number] examid= [id number] EARS: Hearing intact. . Normal work of breathing label= RESPIRATORY: categoryPropId= [id number] examid= [id number] RESPIRATORY: Normal work of breathing. regular rate label= HEART: categoryPropId= [id number] examid= [id number] HEART: regular rate. no edema, no clubbing, no cyanosis label= EXTREMITIES: categoryPropId= [id number] examid= [id number] EXTREMITIES: no edema, no clubbing, no cyanosis. no rash or ulcers label= SKIN: categoryPropId= [id number] examid= [id number] SKIN: no rash or ulcers. Tone normal label= MUSCULOSKELETAL: categoryPropId= [id number] examid= [id number] MUSCULOSKELETAL: Tone normal. See below label= NEUROLOGIC: categoryPropId= [id number] examid= [id number] NEUROLOGIC: See below. CERVICAL SPINE EXAM: -Positive [...] UE prox and distal and symm - patrol man 4-5/5 Left UE and symm - patrol man 4-5/5 Right UE and symm - sensory [...] on how to reach the clinic or director of marketing and promotions physician at anytime for questions or complaints. documented in this encounter Plan of Treatment Upcoming Encounters Date Type Department Care Team (Late st Contact Info) Description 06/03/2024 1:00 PM ROVING CAN TENDER Appointment [facility] - Rheumatology [address] [place] [address] [phone] 06/03/2024 2:00 PM ROVING CAN TENDER Office Visit [facility] - Rheumatology [address] [place] [address] [phone] Gloria Smith MD [address] [place] [phone] documented as of this encounter Visit Diagnoses Not on filedocumented in this encounter Care Teams Site Safety Coordinator Relationship Specialty Start Date End Date Tomas Hyman MD [address] [facility] [address] [place] [address] PCP - General Family Medicine 09/05/18 Isidro Heredia MD Rheumatology 02/09/11 documented as of this encounter
--- OUTSIDE RECORDS SUMMARY | 2024-05-10 18:43 | XMS_ITS | Encounter Summary ---
Author Organization [facility] Address [address] [facility] [place] [address] Care Team Providers Care Bisque Cleaner Name Role Phone Isidro Heredia MD Unavailable [phone] Tomas Hyman MD Primary Care Provider [phone] Reason for Visit * Reason Comments Rheumatoid Arthritis Encounter Details Date Type Department Care Team (Late st Contact Info) Description 02/08/2024 11:40 AM CDT Office Visit [facility] - Rheumatology [address] [place] [address] Gloria Smith MD [address] [place] [phone] Rheumatoid arthritis of multiple sites with [...] Medical History: Diagnosis Date RA (rheumatoid arthritis) ([facility]) Past Surgical History: Procedure Laterality Date [...] results to us. - took alendronate from 9185-2476. - takes otc vit D daily. ORDERS: [...] st Contact Info) Description 06/03/2024 1:00 PM CONCAVER Appointment [facility] - Rheumatology [address] [place] [address] 06/03/2024 2:00 PM CONCAVER Office Visit [facility] - Rheumatology [address] [place] [address] Gloria Smith MD [address] [place] [phone] Scheduled Orders Name Type Priority Associated Diagnoses [...] 03/22/1987 documented in this encounter Care Teams Bisque Cleaner Relationship Specialty Start Date End Date Tomas Hyman MD [address] [facility] [address] [place] [address] PCP - General Family Medicine 09/05/18 Isidro Heredia MD Rheumatology 02/09/11 documented as of this encounter
--- OUTSIDE RECORDS SUMMARY | 2024-05-10 18:43 | XMS_ITS | Encounter Summary ---
Author Organization [facility] Address [address] [facility] [place] [address] Care Team Providers Care Timber Setter Name Role Phone Isidro Heredia MD Unavailable [phone] Tomas Hyman MD Primary Care Provider [phone] Reason for Visit * Reason Comments Follow-up Encounter Details Date Type Department Care Team (Late st Contact Info) Description 02/10/2022 8:40 AM CDT Office Visit [facility] - Rheumatology [address] [place] [address] Gloria Smith MD [address] [place] [phone] Rheumatoid arthritis of multiple sites with [...] History: Diagnosis Date ??? RA (rheumatoid arthritis) ([facility]) Past Surgical History: Procedure Laterality Date ??? [...] bone density scan - took alendronate from 9580-8204. The total time spent today was 40 minutes performing chart prep, review of data and visit with the patient. documented in this encounter Plan of Treatment Upcoming Encounters Date Type Department Care Team (Late st Contact Info) Description 06/03/2024 1:00 PM SUPERVISOR BOTTLE HOUSE CLEANERS Appointment [facility] - Rheumatology [address] [place] [address] 06/03/2024 2:00 PM SUPERVISOR BOTTLE HOUSE CLEANERS Office Visit [facility] - Rheumatology [address] [place] [address] Gloria Smith MD [address] [place] [phone] documented as of this encounter Procedures Procedure [...] Resulting Agency Comment Lab Testing performed at: [facility] [address] [address] ?? Ziyad PENNY [id number] Gloria Smith MD LAB - CHEMISTRY MARII ARAUJO [facility] INSURANCE BILL [address] [place] [address] * VITAMIN D 25-HYDROXY (02/10/2022 9:46 AM CDT) Vitamin D, 25 Hydroxy 52.1 30 - 100 ng/mL [facility] INSURANCE BILL Comment: Vitamin D Status: ?Deficiency ? <20 ? ng/mL ?Insufficiency ?? 20-30 ??ng/mL ?Sufficiency ? 30-100 ng/mL ?Toxicity ? >100 ?ng/mL Blood BLOOD SPECIMEN / Unknown 02/10/2022 9:46 AM CDT 02/10/2022 Narrative Resulting Agency Comment Lab Testing performed at: [facility] [address] [address] ?? Ziyad PENNY [phone] Gloria Smith MD LAB - CHEMISTRY MARII ARAUJO Performing Organization Address City/[facility]/ZIP Co de Phone Number [facility] INSURANCE BILL [address] [place] [address] * QUANTIFERON TB-GOLD (02/10/2022 9:44 AM CDT) [...] Resulting Agency Comment Lab Testing performed at: [facility] [address] [facility] ??[facility] [phone] Gloria Smith MD LAB - CHEMISTRY MARII ARAUJO Performing Organization Address City/[facility]/ZIP Co de Phone Number [facility] INSURANCE BILL [address] [place] [address] documented in this encounter Visit Diagnoses Diagnosis Rheumatoid arthritis of multiple sites with negative rheumatoid factor (HCC)- Primary Vitamin D deficiency Fatigue, unspecified type documented in this encounter Care Teams Timber Setter Relationship Specialty Start Date End Date Tomas Hyman MD [address] [facility] [address] [place] [address] PCP - General Family Medicine 09/05/18 Isidro Heredia MD Rheumatology 02/09/11 documented as of this encounter
--- OUTSIDE RECORDS SUMMARY | 2024-05-10 18:43 | XMS_ITS | Encounter Summary ---
Author Organization [facility] Address [address] [place] [address] Care Team Providers Care Manager Housekeeping Name Role Phone Isidro eHredia MD Unavailable [phone] Tomas Hyman MD Primary Care Provider [phone] Reason for Referral * OP/Amb RFL Auth (Routine) - Closed Specialty Diagnoses / Procedures Referred By Contsarahi t Referred To Contact Diagnoses Right shoulder pain, unspecified chronicity Procedures NH DRAIN/INJECT LARGE JOINT/BURSA Gloria Smith MD [address] [place] [address] Referral ID Status Reason Start Date Expiration Date Visits Re quested Visits Authorized [id number] Closed 05/19/2022 05/19/2023 1 1 CARRIER Reason for Visit * Reason Comments Follow-up Encounter Details Date Type Department Care Team (Late st Contact Info) Description 05/19/2022 11:20 AM MAIL CARRIER Office Visit [facility] - Rheumatology [address] [place] [address] Glroia Smith MD [facility] [place] [address] Rheumatoid arthritis of multiple sites [...] Coronavirus/COVID-19? No / Unsure 05/19/2022 10:58 AM MAIL CARRIER documented as of this encounter Last Filed Vital Signs Vital Sign Reading Time Taken Comments Blood Pressure 115/68 05/19/2022 11:04 AM MAIL CARRIER Pulse 81 05/19/2022 11:04 AM MAIL CARRIER Temperature - - Respiratory Rate 22 05/19/2022 11:04 AM MAIL CARRIER Oxygen Saturation - - Inhaled Oxygen Concentration - - Weight 101.6 kg (224 lb) 05/19/2022 11:04 AM MAIL CARRIER Height 177.8 cm (5' 10 ) 05/19/2022 11:04 AM MAIL CARRIER Body Mass Index 32.14 05/19/2022 11:04 AM MAIL CARRIER documented in this encounter Patient Instructions * Patient Instructions* Gloria Smith MD - 05/19/2022 11:59 AM MAIL CARRIER Discuss with pcp regarding repeating bone density and compare to previous results. CARRIER documented in this encounter Progress Notes * [...] History: Diagnosis Date ??? RA (rheumatoid arthritis) ([facility]) Past Surgical History: Procedure Laterality [...] in his chart. - took alendronate from 2593-3406. CARRIER documented in this encounter Plan of Treatment Upcoming Encounters Date Type Department Care Team (Late st Contact Info) Description 06/03/2024 1:00 PM MAIL CARRIER Appointment [facility] - Rheumatology [address] [place] [address] [phone] 06/03/2024 2:00 PM MAIL CARRIER Office Visit [facility] - Rheumatology [address] [place] [address] Gloria Smith MD [address] [place] [phone] documented as of this encounter Visit Diagnoses [...] at 1245 $ Given 05/19/2022 12:24 PM MAIL CARRIER 1 mL Right Shoulder methylPREDNISolone acetate (DEPO-Medrol) injection 40 mg 40 mg, Intra-articular, ONCE, 1 dose, On Sun05/19/22 at 1245 $ Given 05/19/2022 12:25 PM MAIL CARRIER 40 mg Right Shoulder documented in this encounter Care Teams Manager Housekeeping Relationship Specialty Start Date End Date Tomas Hyman MD [address] [facility] [address] [place] [address] PCP - General Family Medicine 09/05/18 Isidro Heredia MD Rheumatology 02/09/11 documented as of this encounter
--- OUTSIDE RECORDS SUMMARY | 2024-05-10 18:43 | XMS_ITS | Encounter Summary ---
Author Organization [facility] Address [address] [place] [address] Care Team Providers Care Supervisor Edging Name Role Phone Isidro Heredia MD Unavailable [phone] Tomas Hyman MD Primary Care Provider [phone] Encounter Details Date Type Department Care Team (Late Contact Info) Description 01/04/2024 Orders Only [facility] - Rheumatology [address] [place] [address] Gloria Smith MD [address] [place] [address] Rheumatoid arthritis of multiple sites with [...] (Late Contact Info) Description 06/03/2024 1:00 PM CRISIS SPECIALIST Appointment [facility] - Rheumatology [address] [place] [address] 06/03/2024 2:00 PM CRISIS SPECIALIST Office Visit [facility] - Rheumatology [address] [place] [address] [place] [phone] Gloria Smith MD [address] [place] [address] documented as of this encounter [...] 01/29/2024 6:08 PM CDT Performed at: ?? [facility] [address] [place] ??[id number] Retirement Officer: Sanchez Wagner [facility], Phone: ??[phone] Gloria Smith MD LAB - CHEMISTRY MARII ARAUJO [facility] INSURANCE BILL [address] [place] [address] * (ABNORMAL) CBC WITH DIFFERENTIAL (01/29/2024 10:37 [...] 01/29/2024 6:08 PM CDT Performed at: ?? 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
--- OUTSIDE RECORDS SUMMARY | 2024-05-10 18:43 | XMS_ITS | Encounter Summary ---
Author Organization [facility] Address [address] [facility] [address] [place] [address] Care Team Providers Care Garnishment Specialist Name Role Phone Isidro Heredia MD Unavailable [phone] Tomas Hyman MD Primary Care Provider [phone] Encounter Details Date Type Department Care Team [...] st Contact Info) Description 06/03/2024 1:00 PM CHILD DEVELOPMENT ASSISTANT Appointment [facility] Medical [facility] - Rheumatology [address] [place] [address] 06/03/2024 2:00 PM CHILD DEVELOPMENT ASSISTANT Office Visit [facility] - Rheumatology [address] [place] [address] Gloria Smith MD [address] [place] [address] documented as of this encounter Visit Diagnoses Not on filedocumented in this encounter Care Teams Garnishment Specialist Relationship Specialty Start Date End Date Tomas Hyman MD [address] [place] [address] PCP - General Family Medicine 09/05/18 Isidro Heredia MD Rheumatology 02/09/11 documented as of this encounter
--- OUTSIDE RECORDS SUMMARY | 2024-05-10 18:43 | XMS_ITS | Encounter Summary ---
Author Organization [facility] Address [address] [facility] [address] Care Team Providers Care Airborne Sensor Specialist Name Role Phone Isidro Heredia MD Unavailable [phone] Tomas Hyman MD Primary Care Provider [phone] Reason for Visit * Reason Onset Date Comments MEDICATION REFILL 07/04/2023 Encounter Details Date Type Department Care Team (Late st Contact Info) Description 07/04/2023 Refill [facility] Medical [facility] - Rheumatology [address] [place] [address] Gloria Smith MD [address] [place] [phone] MEDICATION REFILL Social History Tobacco Use [...] Dixie Beard LPN - 07/04/2023 3:12 PM FOAM DISPENSER NON-BIOLOGIC REFILL REQUEST Last OV: 05/29/2023 Next [...] 0911 02/08/21 1645 CRP 0.49 <0.20 <1 DISPENSER documented in this encounter Plan of Treatment Upcoming Encounters Date Type Department Care Team (Late st Contact Info) Description 06/03/2024 1:00 PM FOAM DISPENSER Appointment [facility] - Rheumatology [address] [place] [address] [phone] 06/03/2024 2:00 PM FOAM DISPENSER Office Visit [facility] - Rheumatology [address] [place] [address] [phone] Gloria Smith MD [address] [place] [phone] documented as of this encounter Visit Diagnoses Diagnosis Rheumatoid arthritis of multiple sites with negative rheumatoid factor (HCC) Neuropathy Mononeuritis of unspecified site documented in this encounter Care Teams Airborne Sensor Specialist Relationship Specialty Start Date End Date Tomas Hyman MD [address] [place] [address] PCP - General Family Medicine 09/05/18 Isidro Heredia MD Rheumatology 02/09/11 documented as of this encounter
--- OUTSIDE RECORDS SUMMARY | 2024-05-10 18:43 | XMS_ITS | Encounter Summary ---
Author Organization [facility] Address [address] [facility] [place] [address] Care Team Providers Care First Aid Attendant Name Role Phone Isidro Heredia MD Unavailable [phone] Tomas Hyman MD Primary Care Provider [phone] Encounter Details Date Type Department Care Team (Late Contact Info) Description 11/13/2023 Orders Only [facility] - Rheumatology [address] [facility], [address] [place] [phone] Gloria Smith MD [address] [place] [phone] Social History Tobacco Use Types Packs/Day [...] (Late Contact Info) Description 06/03/2024 1:00 PM PRESSER MACHINE Appointment [facility] - Rheumatology [address] [place] [address] 06/03/2024 2:00 PM PRESSER MACHINE Office Visit [facility] - Rheumatology [address] [place] [address] Gloria Smith MD [address] [place] [phone] documented as of this encounter Visit Diagnoses Not on filedocumented in this encounter Care Teams First Aid Attendant Relationship Specialty Start Date End Date Tomas Hyman MD [address] [facility] [address] [place] [phone] PCP - General Family Medicine 09/05/18 Isidro Heredia MD Rheumatology 02/09/11 documented as of this encounter
--- OUTSIDE RECORDS SUMMARY | 2024-05-10 18:43 | XMS_ITS | Encounter Summary ---
Author Organization [facility] Address [address] [facility] [place] [address] Care Team Providers Care Scouring Machine Operator Name Role Phone Isidro Heredia MD Unavailable [phone] Tomas Hyman MD Primary Care Provider [phone] Encounter Details Date Type Department Care Team (Late Contact Info) Description 11/18/2022 Orders Only [facility] - Rheumatology [address] [facility], [address] [place] [address] Gloria Smith MD [address] [place] [phone] Social History Tobacco Use Types Packs/Day [...] Contact Info) Description 06/03/2024 1:00 PM SERVICE DISPATCHER Appointment [facility] - Rheumatology [address] [place] [address] 06/03/2024 2:00 PM SERVICE DISPATCHER Office Visit [facility] - Rheumatology [address] [place] [address] Gloria Smith MD [address] [place] [address] documented as of this encounter Visit Diagnoses Not on filedocumented in this encounter Care Teams Scouring Machine Operator Relationship Specialty Start Date End Date Tomas Hyman MD [address] [place] [address] PCP - General Family Medicine 09/05/18 Isidro Heredia MD Rheumatology 02/09/11 documented as of this encounter
--- OUTSIDE RECORDS SUMMARY | 2024-05-10 18:43 | XMS_ITS | Encounter Summary ---
Author Organization [facility] Address [address] [facility] [place] [address] Care Team Providers Care General Duty Nurse Name Role Phone Isidro Heredia MD Unavailable [phone] Tomas Hyman MD Primary Care Provider [phone] Encounter Details Date Type Department Care Team [...] Contact Info) Description 06/03/2024 1:00 PM ICT QUALITY ASSURANCE ENGINEER Appointment [facility] Medical [facility] - Rheumatology [address] [place] [address] 06/03/2024 2:00 PM ICT QUALITY ASSURANCE ENGINEER Office Visit [facility] Medical [facility] - Rheumatology [address] [place] [address] Gloria Smith MD [address] [place] [phone] documented as of this encounter Visit Diagnoses Not on filedocumented in this encounter Care Teams General Duty Nurse Relationship Specialty Start Date End Date Tomas Hyman MD [address] [place] [address] PCP - General Family Medicine 09/05/18 Isidro Heredia MD Rheumatology 02/09/11 documented as of this encounter
--- OUTSIDE RECORDS SUMMARY | 2024-05-10 18:43 | XMS_ITS | Encounter Summary ---
Author Organization [facility] Address [address] [facility] [place] [address] Care Team Providers Care Network Developer Name Role Phone Isidro Heredia MD Unavailable Tomas Hyman MD Primary Care Provider [phone] Encounter Details Date Type Department Care Team (Late Contact Info) Description 11/09/2023 Orders Only [facility] - Rheumatology [address] [place] [address] Gloria Smith MD [address] [place] [phone] Rheumatoid arthritis of multiple sites with [...] (Late Contact Info) Description 06/03/2024 1:00 PM RECLAIMER Appointment [facility] - Rheumatology [address] [place] [address] 06/03/2024 2:00 PM RECLAIMER Office Visit [facility] - Rheumatology [address] [place] [address] [place] [address] Gloria Smith MD [address] [place] [address] documented as of this encounter Visit Diagnoses Diagnosis Rheumatoid arthritis of multiple sites with negative rheumatoid factor (HCC) documented in this encounter Care Teams Network Developer Relationship Specialty Start Date End Date Tomas Hyman MD [address] [facility] [address] [place] [address] PCP - General Family Medicine 09/05/18 Isidro Heredia MD Rheumatology 02/09/11 documented as of this encounter
--- OUTSIDE RECORDS SUMMARY | 2024-05-10 18:43 | XMS_ITS | Encounter Summary ---
Author Organization [facility] Address [address] [facility] [place] [address] Care Team Providers Care Table Maker Name Role Phone Isidro Heredia MD Unavailable [phone] Tomas Hyman MD Primary Care Provider Reason for Visit * Treatment (Elective) - Closed Specialty Diagnoses / Procedures Referred By Lawrence shah Referred To Contact Diagnoses Rheumatoid arthritis without rheumatoid factor, multiple sites (HCC) Procedures [place] GOLIMUMAB FOR IV USE 1MG Gloria Smith MD [address] [place] [address] [address] Referral ID Status Reason Start Date Expiration Date Visits Re quested Visits Authorized [id number] Closed 05/18/2023 04/29/2024 8 8 Encounter Details Date Type Department Care Team (Late st Contact Info) Description 01/29/2024 9:00 AM CDT - 01/29/2024 11:59 PM CDT Hospital Encounter [facility] - Rheumatology [address] [place] [address] Gloria Smith MD [address] [place] [address] Rheumatology Discharge Disposition: Home or [...] - 01/29/2024 9:26 AM CDT Discharge Instructions [facility] Rheumatology You have received your [...] through Sunday 9-5 call the office at [phone]. After hours or on the weekend call the exchange at . If you have had lab work done today the staff will contact you via mail, e-mail or telephone with the results. Remember to bring a copy of your labs to [facility]. It may save you an unnecessary [...] tablet by mouth 2 times daily 09/04/2022 vqwvgfgorqg-jgjh-ps lysorb, PF, 0.5-1-0.5 % SOLN Instill 1 [...] - 01/29/2024 9:26 AM CDT JOSE Deng [id number] 01/29/2024 Diagnosis: Rheumatoid arthritis without rheumatoid factor, multiple sites (HCC) [M06.09]. Pt denies symptoms of infection or antibiotic use, no open wounds, or recent surgery, or plans for surgery in the next couple of weeks. Pt is aware that we use the 0-10 pain scale to assess discomfort. 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 front desk lead pt signs consent for treatment [...] Contact Info) Description 06/03/2024 1:00 PM INSTRUCTOR PHYSICAL EDUCATION Appointment [facility] - Rheumatology [address] [place] [address] 06/03/2024 2:00 PM INSTRUCTOR PHYSICAL EDUCATION Office Visit [facility] - Rheumatology [address] [place] [address] Gloria Smith MD [address] [place] [phone] documented as of this encounter Visit [...] mL/hr documented in this encounter Care Teams Table Maker Relationship Specialty Start Date End Date Tomas Hyman MD [address] [facility] [address] [place] [address] PCP - General Family Medicine 09/05/18 Isidro Heredia MD Rheumatology 02/09/11 documented as of this encounter
--- OUTSIDE RECORDS SUMMARY | 2024-05-10 18:43 | XMS_ITS | Encounter Summary ---
Author Organization [facility] Address [address] [facility] [place] [address] Care Team Providers Care Shot Peen Operator Name Role Phone Isidro Heredia MD Unavailable [phone] Tomas Hyman MD Primary Care Provider [phone] Reason for Visit * Reason Onset Date Comments Rx Medication Issue 06/06/2023 Encounter Details Date Type Department Care Team (Late st Contact Info) Description 06/06/2023 Telephone [facility] Medical [facility] - Rheumatology [address] [place] [address] Gloria Smith MD [address] [place] [phone] Rx Medication Issue Social History Tobacco [...] AM CST Called patient and message given. TICK MOLDER * Telephone Encounter - Gloria Smith MD - 06/06/2023 5:44 PM CST Please inform pt: I spoke with Kamila. will hold mtx while he receives radiation to reduce skin sensitivity. However, if arthritis flares up then he can resume mtx. Will continue folic acid and simponi. TICK MOLDER * Telephone Encounter - Hammad Rodriguez - [...] he canre-start? She needs an answer today. TICK MOLDER documented in this encounter Plan of Treatment Upcoming Encounters Date Type Department Care Team (Late st Contact Info) Description 06/03/2024 1:00 PM LIPSTICK MOLDER Appointment [facility] - Rheumatology [address] [place] [address] 06/03/2024 2:00 PM LIPSTICK MOLDER Office Visit [facility] - Rheumatology [address] [place] [address] [phone] Gloria Smith MD [address] [place] [phone] documented as of this encounter Visit Diagnoses Not on filedocumented in this encounter Care Teams Shot Peen Operator Relationship Specialty Start Date End Date Tomas Hyman MD [address] [place], [place] [phone] PCP - General Family Medicine 09/05/18 Isidro Heredia MD Rheumatology 02/09/11 documented as of this encounter
--- OUTSIDE RECORDS SUMMARY | 2024-05-10 18:43 | XMS_ITS | Encounter Summary ---
Author Organization [facility] Address [address] [facility] [place] [address] Care Team Providers Care Clinical Analyst Name Role Phone Isidro Heredia MD Unavailable [phone] Tomas Hyman MD Primary Care Provider [phone] Reason for Visit * Treatment (Elective) - Closed Specialty Diagnoses / Procedures Referred By Lawrence shah Referred To Contact Diagnoses Rheumatoid arthritis without rheumatoid factor, multiple sites (HCC) Procedures [place] GOLIMUMAB FOR IV USE 1MG Gloria Smith MD [address] [place] [address] [address] Referral ID Status Reason Start Date Expiration Date Visits Re quested Visits Authorized [id number] Closed 05/18/2023 04/29/2024 8 8 Encounter Details Date Type Department Care Team (Late st Contact Info) Description 09/28/2023 8:45 AM CDT - 09/28/2023 11:59 PM CDT Hospital Encounter [facility] Medical [facility] - Rheumatology [address] [place] [address] Gloria Smith MD [address] [place] [address] Rheumatology Discharge Disposition: Home or [...] - 09/28/2023 9:29 AM CDT Discharge Instructions [facility] Rheumatology You have received your [...] through Sunday 9-5 call the office at [phone], or infusion room on [phone]. After hours or on the weekend call [...] tablet by mouth 2 times daily 09/04/2022 pwwdovkqmoj-xaoi-najg sorb, PF, 0.5-1-0.5 % SOLN Instill 1 [...] - 09/28/2023 9:33 AM CDT JOSE Deng [id number] 09/28/2023 Diagnosis: Rheumatoid arthritis without rheumatoid factor, [...] Contact Info) Description 06/03/2024 1:00 PM HOME AIDE Appointment [facility] - Rheumatology [address] [place] [address] 06/03/2024 2:00 PM HOME AIDE Office Visit [facility] - Rheumatology [address] [place] [address] Gloria Smith MD [address] [place] [phone] documented as of this encounter Visit [...] documented in this encounter Care Teams Clinical Analyst Relationship Specialty Start Date End Date Tomas Hyman MD [address] [place] [address] PCP - General Family Medicine 09/05/18 Isidro Heredia MD Rheumatology 02/09/11 documented as of this encounter
--- OUTSIDE RECORDS SUMMARY | 2024-05-10 18:43 | XMS_ITS | Encounter Summary ---
Author Organization [facility] Address [address] [facility] [place] [address] Care Team Providers Care Wet Pan Mixer Name Role Phone Isidro Heredia MD Unavailable [phone] Tomas Hyman MD Primary Care Provider [phone] Reason for Visit * Treatment (Elective) - Closed Specialty Diagnoses / Procedures Referred By Lawrence shah Referred To Contact Diagnoses Rheumatoid arthritis without rheumatoid factor, multiple sites (HCC) Procedures [place] GOLIMUMAB FOR IV USE 1MG Gloria Smith MD [address] [place] [address] [address] Referral ID Status Reason Start Date Expiration Date Visits Re quested Visits Authorized [id number] Closed 05/18/2023 04/29/2024 8 8 Encounter Details Date Type Department Care Team (Late st Contact Info) Description 05/29/2023 12:47 PM CIRCUIT BOARD REPAIR TECHNICIAN - 05/29/2023 11:59 PM CIRCUIT BOARD REPAIR TECHNICIAN Hospital Encounter [facility] Medical [facility] - Rheumatology [address] [place] [address] Gloria Smith MD [address] [place] [address] Rheumatology Discharge Disposition: Home or [...] Comments Blood Pressure 126/81 05/29/2023 1:27 PM CIRCUIT BOARD REPAIR TECHNICIAN Pulse 79 05/29/2023 1:27 PM CIRCUIT BOARD REPAIR TECHNICIAN Temperature 37 ??C (98.6 ??F) 05/29/2023 1:27 PM CIRCUIT BOARD REPAIR TECHNICIAN Respiratory Rate - - Oxygen Saturation - - Inhaled Oxygen Concentration - - Weight 95.9 kg (211 lb 6.4 oz) 05/29/2023 1:27 P M CIRCUIT BOARD REPAIR TECHNICIAN Height - - Body Mass Index 30.33 01/30/2023 10:56 AM CDT documented in this encounter Discharge Instructions * Discharge Instructions* Shelby Higgins RN - 05/29/2023 1:40 PM CIRCUIT BOARD REPAIR TECHNICIAN Discharge Instructions [facility] Rheumatology You [...] through Sunday 9-5 call the office at [phone]. After hours or on the weekend call [...] have chosen [facility] as your Provider UIT BOARD REPAIR TECHNICIAN documented in this encounter Medications at Time of Discharge Medication Sig Dispensed Refills Start Date End Date aspirin EC (ECOTRIN) 81 MG tablet Take 1 (one) tablet by mouth once daily 90 tablet 11/14/2021 atorvastatin (LIPITOR) 40 MG tablet Take 1 (one) tablet by mouth at bedtime buPROPion (Wellbutrin) 100 MG tablet Take 1 (one) tablet by mouth 2 times daily 09/04/2022 aemxcxliocq-zwqd-hwiv sorb, PF, 0.5-1-0.5 % SOLN Instill 1 [...] 05/29/2023 1:41 PM CST JOSE Chalino Deng [id number] 05/29/2023 Diagnosis: Rheumatoid arthritis without rheumatoid factor, multiple sites ([facility]) [M06.09]. Pt denies symptoms of [...] treatment? Q 8 weeks Shelby Higgins RN UIT BOARD REPAIR TECHNICIAN documented in this encounter Plan of Treatment Upcoming Encounters Date Type Department Care Team (Late st Contact Info) Description 06/03/2024 1:00 PM CIRCUIT BOARD REPAIR TECHNICIAN Appointment [facility] - Rheumatology [address] [place] [id number] 06/03/2024 2:00 PM CIRCUIT BOARD REPAIR TECHNICIAN Office Visit [facility] - Rheumatology [address] [place] [address] Gloria Smith MD [address] [place] [phone] documented as of this encounter Visit Diagnoses [...] filter. $ New Bag/Syringe 05/29/2023 1:30 PM CIRCUIT BOARD REPAIR TECHNICIAN 180 mg 220 mL/hr documented in this encounter Care Teams Wet Pan Mixer Relationship Specialty Start Date End Date Tomas Hyman MD [address] [facility] [address] [place] [address] PCP - General Family Medicine 09/05/18 Isidro Heredia MD Rheumatology 02/09/11 documented as of this encounter
--- OUTSIDE RECORDS SUMMARY | 2024-05-10 18:43 | XMS_ITS | Encounter Summary ---
Author Organization [facility] Address [address] [facility] [place] [address] Care Team Providers Care Notching Press Operator Name Role Phone Isidro Heredia MD Unavailable [phone] Tomas Hyman MD Primary Care Provider [phone] Encounter Details Date Type Department Care Team (Late Contact Info) Description 07/20/2023 Orders Only [facility] - Rheumatology [address] [place] [address] Gloria Smith MD [address] [place] [phone] Rheumatoid arthritis of multiple sites with [...] (Late Contact Info) Description 06/03/2024 1:00 PM FLEXO OPERATOR Appointment [facility] - Rheumatology [address] [place] [address] 06/03/2024 2:00 PM FLEXO OPERATOR Office Visit [facility] - Rheumatology [address] [place] [address] Gloria Smith MD [address] [place] [address] documented as of this encounter Visit Diagnoses Diagnosis Rheumatoid arthritis of multiple sites with negative rheumatoid factor (HCC) documented in this encounter Care Teams Notching Press Operator Relationship Specialty Start Date End Date Tomas Hyman MD [address] [place] [address] PCP - General Family Medicine 09/05/18 Isidro Heredia MD Rheumatology 02/09/11 documented as of this encounter
--- OUTSIDE RECORDS SUMMARY | 2024-05-10 18:43 | XMS_ITS | Encounter Summary ---
Author Organization [facility] Address [address] [facility] [place] [address] Care Team Providers Care Manager Equipment Name Role Phone Isidro Heredia MD Unavailable [phone] Tomas Hyman MD Primary Care Provider [phone] Reason for Visit * Reason Onset Date Comments MEDICATION REFILL 09/03/2022 Encounter Details Date Type Department Care Team (Late st Contact Info) Description 09/03/2022 Refill [facility] - Rheumatology [address] [place] [address] Gloria Smith MD [address] [place] [address] MEDICATION REFILL Social History Tobacco Use [...] 0.7 Recent Labs Component Name 02/10/22 0946 [id number] 52.1 No results for input(s): URICACID in the last 07961 hours. Last ESR: Recent Labs Component Name 02/08/21 1645 06/29/20 1410 02/06/20 1332 SEDRATE 5 13 12 Last 3 CRP: Recent Labs Component Name 02/08/21 1645 06/29/20 1410 02/06/20 1332 CRP <1 <0.20 0.21 documented in this encounter Plan of Treatment Upcoming Encounters Date Type Department Care Team (Late st Contact Info) Description 06/03/2024 1:00 PM BATH MIXER Appointment [facility] - Rheumatology [address] [place] [address] 06/03/2024 2:00 PM BATH MIXER Office Visit [facility] - Rheumatology [address] [place] [address] Gloria Smith MD [address] [place] [phone] documented as of this encounter Visit Diagnoses Diagnosis High risk medication use- Primary Encounter for long-term (current) use of other medications Rheumatoid arthritis 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
--- OUTSIDE RECORDS SUMMARY | 2024-05-10 18:43 | XMS_ITS | Encounter Summary ---
Author Organization [facility] Address [address] [facility] [place] [address] Care Team Providers Care Matcher Leather Parts Name Role Phone Isidro Heredia MD Unavailable [phone] Tomas Hyman MD Primary Care Provider [phone] Encounter Details Date Type Department Care Team (Late Contact Info) Description 09/14/2023 Orders Only [facility] - Rheumatology [address] [place] [address] Gloria Smith MD [address] [place] [phone] Rheumatoid arthritis of multiple sites with [...] Contact Info) Description 06/03/2024 1:00 PM PERSONAL DRIVER Appointment [facility] - Rheumatology [address] [place] [address] 06/03/2024 2:00 PM PERSONAL DRIVER Office Visit [facility] - Rheumatology [address] [place] [address] [phone] Gloria Smith MD [address] [place] [address] documented as of this encounter [...] Agency Comment Lab Testing performed at: [facility] [address] [facility] ??[facility] [id number] Gloria Smith MD LAB - CHEMISTRY MARII ARAUJO [facility] INSURANCE BILL [address] [place] [address] * (ABNORMAL) CBC WITH DIFFERENTIAL (09/17/2023 2:54 [...] Agency Comment Lab Testing performed at: [facility] [address] [facility] ??[facility] [id number] Gloria Smith MD LAB - HEMATOLOGY ORD ERABLES [facility] INSURANCE BILL [address] [place] [address] documented in this encounter Visit Diagnoses Diagnosis Rheumatoid arthritis of multiple sites with negative rheumatoid factor (HCC) documented in this encounter Care Teams Matcher Leather Parts Relationship Specialty Start Date End Date Tomas Hyman MD [address] [facility] [address] [place] [address] PCP - General Family Medicine 09/05/18 Isidro Heredia MD Rheumatology 02/09/11 documented as of this encounter
--- OUTSIDE RECORDS SUMMARY | 2024-05-10 18:43 | XMS_ITS | Encounter Summary ---
Author Organization [facility] Address [address] [facility] [place] [address] Care Team Providers Care Post Office Markup Clerk Name Role Phone Isidro Heredia MD Unavailable [phone] Tomas Hyman MD Primary Care Provider [phone] Reason for Visit * Reason Onset Date Comments Scheduling 06/26/2022 Pt scheduled for Simponi infusion 07/05 at [place] Encounter Details Date Type Department Care Team (Late st Contact Info) Description 06/26/2022 Telephone [facility] [address] [facility] [address] [place], [place] [phone] Alisia Silva, RN Scheduling (Pt scheduled for Simponi infusion 07/05 at [place]) Social History Tobacco Use Types Packs/Day Years [...] (Late Contact Info) Description 06/03/2024 1:00 PM TRANSITION OF CARE SPECIALIST Appointment [facility] - Rheumatology [address] [place] [address] 06/03/2024 2:00 PM TRANSITION OF CARE SPECIALIST Office Visit [facility] - Rheumatology [address] [place] [address] Gloria Smith MD [address] [place] [phone] documented as of this encounter Visit Diagnoses Not on filedocumented in this encounter Care Teams Post Office Markup Clerk Relationship Specialty Start Date End Date Tomas Hyman MD [address] [place] [address] PCP - General Family Medicine 09/05/18 Isidro Heredia MD Rheumatology 02/09/11 documented as of this encounter
--- OUTSIDE RECORDS SUMMARY | 2024-05-10 18:43 | XMS_ITS | Encounter Summary ---
Author Organization [facility] Address [address] [facility] [place] [address] Care Team Providers Care Philosophy Specialist Name Role Phone Isidro Heredia MD Unavailable [phone] Tomas Hyman MD Primary Care Provider [phone] Reason for Referral * OP/Amb RFL Auth (Routine) - Closed Specialty Diagnoses / Procedures Referred By Contsarahi t Referred To Contact Diagnoses Right shoulder pain, unspecified chronicity Procedures [place] DRAIN/INJECT LARGE JOINT/BURSA Gloria Smith MD [address] [place] [address] Referral ID Status Reason Start Date Expiration Date Visits Re quested Visits Authorized [id number] Closed 09/05/2022 09/05/2023 1 1 Encounter Details Date Type Department Care Team (Late st Contact Info) Description 09/05/2022 2:20 PM CDT Office Visit [facility] - Rheumatology [address] [place] [address] Gloria Smith MD [facility] [place] [address] Rheumatoid arthritis involving right shoulder, [...] Body Mass Index 28.47 07/05/2022 10:45 AM INVESTIGATOR CLAIMS documented in this encounter Progress Notes * [...] Diagnosis Date ??? RA (rheumatoid arthritis) ([facility]) Past Surgical History: Procedure Laterality Date [...] to take medications when he travels to [place] in August 2022. - return to clinic [...] in his chart. - took alendronate from [id number]. The total time spent today was 40 minutes performing chart prep, review of data and visit with the patient. documented in this encounter Plan of Treatment Upcoming Encounters Date Type Department Care Team (Late st Contact Info) Description 06/03/2024 1:00 PM INVESTIGATOR CLAIMS Appointment [facility] - Rheumatology [address] [place] [address] 06/03/2024 2:00 PM INVESTIGATOR CLAIMS Office Visit [facility] - Rheumatology [address] [place] [address] Gloria Smith MD [facility] [place] [phone] documented as of this encounter Visit Diagnoses [...] Shoulder documented in this encounter Care Teams Philosophy Specialist Relationship Specialty Start Date End Date Tomas Hyman MD [address] [facility] [address] [place] [address] PCP - General Family Medicine 09/05/18 Isidro Heredia MD Rheumatology 02/09/11 documented as of this encounter
--- OUTSIDE RECORDS SUMMARY | 2024-05-10 18:43 | XMS_ITS | Encounter Summary ---
Author Organization [facility] Address [address] [facility] [place] [address] Care Team Providers Care Manufacturing Mechanic Name Role Phone Isidro Heredia MD Unavailable [phone] Tomas Hyman MD Primary Care Provider [phone] Encounter Details Date Type Department Care Team [...] Coronavirus/COVID-19? No / Unsure 05/19/2022 10:58 AM FERMENTER WINE documented as of this encounter Plan of Treatment Upcoming Encounters Date Type Department Care Team (Late st Contact Info) Description 06/03/2024 1:00 PM FERMENTER WINE Appointment [facility] - Rheumatology [address] [place] [address] 06/03/2024 2:00 PM FERMENTER WINE Office Visit [facility] - Rheumatology [address] [place] [address] Gloria Smith MD [address] [place] [phone] documented as of this encounter Visit Diagnoses Not on filedocumented in this encounter Care Teams Manufacturing Mechanic Relationship Specialty Start Date End Date Tomas Hyman MD [address] [place] [address] PCP - General Family Medicine 09/05/18 Isidro Heredia MD Rheumatology 02/09/11 documented as of this encounter
--- OUTSIDE RECORDS SUMMARY | 2024-05-10 18:43 | XMS_ITS | Encounter Summary ---
Author Organization [facility] Address [address] [facility] [place] [address] Care Team Providers Care Hydroelectric Machinery Mechanic Name Role Phone Isidro Heredia MD Unavailable [phone] Tomas Hyman MD Primary Care Provider [phone] Reason for Referral * OP/Amb RFL Auth (Routine) - Pending Review Specialty Diagnoses / Procedures Referred By Contsarahi t Referred To Contact Diagnoses Right shoulder pain, unspecified chronicity Procedures [place] DRAIN/INJECT LARGE JOINT/BURSA Gloria Smith MD [address] [place] [address] Referral ID Status Reason Start Date Expiration Date V isits Requested Visits Authorized [id number] Pending Review 09/18/2023 09/17/2024 1 1 Reason for Visit * Reason Comments Follow-up Osteopenia Encounter Details Date Type Department Care Team (Late st Contact Info) Description 09/18/2023 3:40 PM CDT Office Visit [facility] - Rheumatology [address] [place] [address] Gloria Smith MD [address] [place] [address] Rheumatoid arthritis of multiple sites with [...] History: Diagnosis Date RA (rheumatoid arthritis) ([facility]) Past Surgical History: Procedure Laterality Date Tonsillectomy [...] results to us. - took alendronate from [id number]. - takes otc vit D daily. ORDERS: [...] Contact Info) Description 06/03/2024 1:00 PM CIGAR TOBACCO REHANDLER Appointment [facility] - Rheumatology [address] [place] [phone] 06/03/2024 2:00 PM CIGAR TOBACCO REHANDLER Office Visit [facility] - Rheumatology [address] [place] [address] [phone] Gloria Smith MD [address] [place] [phone] Scheduled Orders Name Type Priority Associated Diagnoses [...] Shoulder documented in this encounter Care Teams Hydroelectric Machinery Mechanic Relationship Specialty Start Date End Date Tomas Hyman MD [address] [place] [address] PCP - General Family Medicine 09/05/18 Isidro Heredia MD Rheumatology 02/09/11 documented as of this encounter
--- OUTSIDE RECORDS SUMMARY | 2024-05-10 18:43 | XMS_ITS | Encounter Summary ---
Author Organization [facility] Address [address] [facility] [place] [address] Care Team Providers Care Skiver Hand Name Role Phone Isidro Heredia MD Unavailable [phone] Tomas Hyman MD Primary Care Provider [phone] Reason for Visit * Treatment (Elective) - Closed Specialty Diagnoses / Procedures Referred By Contsarahi t Referred To Contact Diagnoses Rheumatoid arthritis of multiple sites with negative rheumatoid factor (HCC) Procedures [place] GOLIMUMAB FOR IV USE 1MG Gloria Smith MD [address] [place] [address] [address] Referral ID Status Reason Start Date Expiration Date Visits Re quested Visits Authorized [id number] Closed 05/22/2022 04/29/2023 12 12 Encounter Details Date Type Department Care Team (Latest Contact Info) Description 08/02/2022 11:20 AM CDT - 08/02/2022 11:59 PM CDT Hospital Encounter [facility] [address] [place] [address] Tomas Hyman MD [address] [place] [address] Discharge Disposition: Home or Self [...] Body Mass Index 29.18 07/05/2022 10:45 AM EMPLOYMENT LAW ATTORNEY documented in this encounter Medications at Time of Discharge Medication Sig Dispensed Refills Start Date End Date aspirin EC (ECOTRIN) 81 MG tablet Take 1 (one) tablet by mouth once daily 90 tablet 11/14/2021 atorvastatin (LIPITOR) 40 MG tablet Take 1 (one) tablet by mouth at bedtime ienhyxookyv-vjrc-bv lysorb, PF, 0.5-1-0.5 % SOLN Instill 1 [...] this encounter Progress Notes * Kae Shell, DRY END OPERATOR-MANAGEMENT PROFESSOR - 08/02/2022 1:30 PM CDT Chalino Deng 1960 Patient completed scheduled Treatment at [facility] Infusion Center. Please call with any questions [phone]. BP 109/65 Pulse 76 Temp 98.4 ??F [...] st Contact Info) Description 06/03/2024 1:00 PM EMPLOYMENT LAW ATTORNEY Appointment [facility] - Rheumatology [address] [place] [address] 06/03/2024 2:00 PM EMPLOYMENT LAW ATTORNEY Office Visit [facility] - Rheumatology [address] [place] [address] Gloria Smith MD [address] [place] [phone] documented as of this encounter Visit [...] mL/hr documented in this encounter Care Teams Skiver Hand Relationship Specialty Start Date End Date Tomas Hyman MD [address] [place] [address] PCP - General Family Medicine 09/05/18 Isidro Heredia MD Rheumatology 02/09/11 documented as of this encounter
--- OUTSIDE RECORDS SUMMARY | 2024-05-10 18:43 | XMS_ITS | Encounter Summary ---
Author Organization [facility] Address [address] [facility] [place] [address] Care Team Providers Care Mold Maker Apprentice Name Role Phone Isidro Heredia MD Unavailable [phone] Tomas Hyman MD Primary Care Provider [phone] Encounter Details Date Type Department Care Team [...] Contact Info) Description 06/03/2024 1:00 PM SUPERVISOR PIG MACHINE Appointment [facility] Medical [facility] - Rheumatology [address] [place] [address] 06/03/2024 2:00 PM SUPERVISOR PIG MACHINE Office Visit [facility] Medical [facility] - Rheumatology [address] [place] [address] Gloria Smith MD [address] [place] [phone] documented as of this encounter Visit Diagnoses Not on filedocumented in this encounter Care Teams Mold Maker Apprentice Relationship Specialty Start Date End Date Tomas Hyman MD [address] [place] [address] PCP - General Family Medicine 09/05/18 Isidro Heredia MD Rheumatology 02/09/11 documented as of this encounter
--- OUTSIDE RECORDS SUMMARY | 2024-05-10 18:43 | XMS_ITS | Encounter Summary ---
Author Organization [facility] Address [address] [facility] [place] [address] Care Team Providers Care Marina Porter Name Role Phone Isidro Heredia MD Unavailable [phone] Tomas Hyman MD Primary Care Provider Reason for Visit * Reason Onset Date Comments MEDICATION REFILL 03/23/2023 Encounter Details Date Type Department Care Team (Late st Contact Info) Description 03/23/2023 Refill [facility] Medical [facility] - Rheumatology [address] [place] [address] Gloria Smith MD [address] [place] [phone] MEDICATION REFILL Social History Tobacco Use [...] Last Eye exam (if refill for hydroxychloroquine): MECHANIC SUPERVISOR documented in this encounter Plan of Treatment Upcoming Encounters Date Type Department Care Team (Late st Contact Info) Description 06/03/2024 1:00 PM AUTO MECHANIC SUPERVISOR Appointment [facility] - Rheumatology [address] [place] [address] 06/03/2024 2:00 PM AUTO MECHANIC SUPERVISOR Office Visit [facility] - Rheumatology [address] [place] [address] Gloria Smith MD [address] [place] [phone] documented as of this encounter Visit Diagnoses Diagnosis Chronic neck pain Cervicalgia Chronic back pain, unspecified back location, unspecified back pain laterality Rheumatoid arthritis of multiple sites with negative rheumatoid factor (HCC) documented in this encounter Care Teams Marina Porter Relationship Specialty Start Date End Date Tomas Hyman MD [address] [facility] [address] [place] [address] PCP - General Family Medicine 09/05/18 Isidro Heredia MD Rheumatology 02/09/11 documented as of this encounter
--- OUTSIDE RECORDS SUMMARY | 2024-05-10 18:43 | XMS_ITS | Encounter Summary ---
Author Organization [facility] Address [address] [place] [place] [address] Care Team Providers Care Company Accountant Name Role Phone Isidro Heredia MD Unavailable [phone] Tomas Hyman MD Primary Care Provider [phone] Reason for Visit * Treatment (Elective) - Closed Specialty Diagnoses / Procedures Referred By Lawrence shah Referred To Contact Diagnoses Rheumatoid arthritis of multiple sites with negative rheumatoid factor (HCC) Procedures [place] GOLIMUMAB FOR IV USE 1MG Gloria Smith MD [address] [place] [address] [address] Referral ID Status Reason Start Date Expiration Date Visits Re quested Visits Authorized [id number] Closed 05/22/2022 04/29/2023 12 12 Encounter Details Date Type Department Care Team (Late st Contact Info) Description 03/28/2023 11:00 AM RETAIL STOCK CLERK - 03/28/2023 11:59 PM RETAIL STOCK CLERK Hospital Encounter [facility] Medical [facility] - Rheumatology [address] [place] [address] Gloria Smith MD [address] [place] [address] Rheumatology Discharge Disposition: Home or [...] Comments Blood Pressure 125/72 03/28/2023 11:34 AM RETAIL STOCK CLERK Pulse 73 03/28/2023 11:34 AM RETAIL STOCK CLERK Temperature 36.7 ??C (98 ??F) 03/28/2023 11: 34 AM RETAIL STOCK CLERK Respiratory Rate - - Oxygen Saturation - - Inhaled Oxygen Concentration - - Weight 94.7 kg (208 lb 12.8 oz) 023 11:34 AM RETAIL STOCK CLERK Height - - Body Mass Index 29.96 01/30/2023 10:56 AM CDT documented in this encounter Discharge Instructions * Discharge Instructions* Shelyb Higgins RN - 03/28/2023 11:39 AM RETAIL STOCK CLERK Discharge Instructions [facility] Rheumatology You have received your infusion [...] Sunday through Sunday5 call the office at [phone]. After hours or on the weekend call the exchange at [phone]. If you have had lab work done [...] have chosen [facility] as your Provider [place] STOCK CLERK documented in this encounter Medications at Time of Discharge Medication Sig Dispensed Refills Start Date End Date aspirin EC (ECOTRIN) 81 MG tablet Take 1 (one) tablet by mouth once daily 90 tablet 11/14/2021 atorvastatin (LIPITOR) 40 MG tablet Take 1 (one) tablet by mouth at bedtime buPROPion (Wellbutrin) 100 MG tablet Take 1 (one) tablet by mouth 2 times daily 09/04/2022 uddvvqqxwgx-wncu-kkfu sorb, PF, 0.5-1-0.5 % SOLN Instill 1 [...] 03/28/2023 11:46 AM CST JOSE Chalino Deng [id number] 03/28/2023 Diagnosis: Rheumatoid arthritis without rheumatoid factor, [...] treatment? Q 56 days Shelby Higgins RN [place] STOCK CLERK documented in this encounter Plan of Treatment Upcoming Encounters Date Type Department Care Team (Late st Contact Info) Description 06/03/2024 1:00 PM RETAIL STOCK CLERK Appointment [facility] - Rheumatology [address] [place] [address] [phone] 06/03/2024 2:00 PM RETAIL STOCK CLERK Office Visit [facility] - Rheumatology [address] [place] [address] [phone] Gloria Smith MD [address] [place] [phone] documented as of this encounter Visit Diagnoses [...] filter. $ New Bag/Syringe 03/28/2023 11:44 AM RETAIL STOCK CLERK 180 mg 200 mL/hr documented in this encounter Care Teams Company Accountant Relationship Specialty Start Date End Date Tomas Hyman MD [address] [place] [address] [address] [place] [address] PCP - General Family Medicine 09/05/18 Isidro Heredia MD Rheumatology 02/09/11 documented as of this encounter
--- OUTSIDE RECORDS SUMMARY | 2024-05-10 18:43 | XMS_ITS | Encounter Summary ---
Author Organization [facility] Address [address] [place] [address] Care Team Providers Care Industrial Paramedic Name Role Phone Isidro Heredia MD Unavailable [phone] Tomas Hyman MD Primary Care Provider [phone] Reason for Visit * Reason Onset Date Comments MEDICATION REFILL 02/27/2022 Encounter Details Date Type Department Care Team (Late st Contact Info) Description 02/27/2022 Refill [facility] Medical [facility] - Rheumatology [address] [place] [address] Gloria Smith MD [address] [place] [address] MEDICATION REFILL Social History Tobacco Use [...] AM CDT LMOR for patient and sent Cryptop[employer] message informing of Dr. Smith's below response. * Telephone Encounter - Gloria Smith MD - 02/28/2022 6:16 PM CDT Yes to renewing gabapentin. Dx: neuropathy Would defer aspirin and pantoprazole to pcp for terminal make up operator management. Those were started by dr. Heredia who is both director law enforcement and pcp. * Telephone Encounter - Arian [...] 0.6 Recent Labs Component Name 02/10/22 0946 [id number] 52.1 No results for input(s): URICACID in the last 87821 hours. Last ESR: Recent Labs Component Name [...] st Contact Info) Description 06/03/2024 1:00 PM BOWLING BALL ASSEMBLER Appointment [facility] - Rheumatology [address] [place] [address] [phone] 06/03/2024 2:00 PM BOWLING BALL ASSEMBLER Office Visit [facility] - Rheumatology [address] [place] [address] Gloria Smith MD [address] [place] [phone] documented as of this encounter Procedures Procedure Name Priority Date/Time Associated Diagnosis Comments CBC W AUTO DIFFERENTIAL Routine 04/12/2022 3:14 PM BOWLING BALL ASSEMBLER High risk medication use COMPREHENSIVE METABOLIC PANEL Routine 04/12/2022 3:14 PM BOWLING BALL ASSEMBLER High risk medication use documented in this encounter Results * (ABNORMAL) COMPREHENSIVE METABOLIC PANEL (04/12/2022 3:14 PM BOWLING BALL ASSEMBLER) Glucose 106(H) 70 - 99 mg/dL [facility] [...] BLOOD SPECIMEN / Unknown 04/12/2022 3:14 PM BOWLING BALL ASSEMBLER 04/12/2022 Narrative Resulting Agency Comment Lab Testing performed at: [facility] ??[facility] [phone] Gloria Smith MD LAB - CHEMISTRY CALEBE VAN [facility] INSURANCE BILL [address] [place] [address] * (ABNORMAL) CBC WITH DIFFERENTIAL (04/12/2022 3:14 PM BOWLING BALL ASSEMBLER) WBC 8.2 3.4 - 10.8 x10E3/uL [facility] [...] BLOOD SPECIMEN / Unknown 04/12/2022 3:14 PM BOWLING BALL ASSEMBLER 04/12/2022 Narrative Resulting Agency Comment Lab Testing performed at: [facility] [address] [facility] ??[facility] [id number] Gloria Smith MD LAB - HEMATOLOGY ORD ERABLES [facility] INSURANCE BILL [address] [place] [address] documented in this encounter Visit Diagnoses Diagnosis Chronic neck pain- Primary Cervicalgia Rheumatoid arthritis of multiple sites with negative rheumatoid factor (HCC) Chronic back pain, unspecified back location, unspecified back pain laterality High risk medication use Encounter for long-term (current) use of other medications Neuropathy Mononeuritis of unspecified site documented in this encounter Care Teams Industrial Paramedic Relationship Specialty Start Date End Date Tomas Hyman MD [address] [facility] [address] [place] [address] PCP - General Family Medicine 09/05/18 Isidro Heredia MD Rheumatology 02/09/11 documented as of this encounter
--- OUTSIDE RECORDS SUMMARY | 2024-05-10 18:43 | XMS_ITS | Encounter Summary ---
Author Organization [facility] Address [address] [place] [address] Care Team Providers Care Personal Lines Advisor Name Role Phone Isidro Heredia MD Unavailable Tomas Hyman MD Primary Care Provider [phone] Reason for Visit * Reason Comments Rheumatoid Arthritis Follow-up Encounter Details Date Type Department Care Team (Late st Contact Info) Description 01/30/2023 10:40 AM CDT Office Visit [facility] - Rheumatology [address] [place] [address] Gloria Smith MD [address] [place] [phone] Rheumatoid arthritis of multiple sites with [...] History: Diagnosis Date ??? RA (rheumatoid arthritis) ([facility]) Past Surgical History: Procedure [...] results to us. - took alendronate from [id number]. documented in this encounter Plan of Treatment Upcoming Encounters Date Type Department Care Team (Late st Contact Info) Description 06/03/2024 1:00 PM PIPE OUT WORKER Appointment [facility] - Rheumatology [address] [place] [address] 06/03/2024 2:00 PM PIPE OUT WORKER Office Visit [facility] - Rheumatology [address] [place] [address] Gloria Smith MD [address] [place] [phone] documented as of this encounter Procedures [...] Resulting Agency Comment Lab Testing performed at: [place] [address] [address] ?? [facility] [phone] Gloria Smith MD LAB - CHEMISTRY ORDE VAN [facility] INSURANCE BILL [address] [place] [address] * (ABNORMAL) CBC WITH DIFFERENTIAL (01/30/2023 11:58 [...] x10E9/L [facility] INSURANCE BILL Comment:MPV FL BLOOD ([facility]) 1 1.5 fl 9.4-12.9 Granulocytes % 51.4 [...] Resulting Agency Comment Lab Testing performed at: [address] ?? [facility] [id number] Gloria Smith MD LAB - HEMATOLOGY ORD ERABLES [facility] INSURANCE BILL [address] [place] [address] documented in this encounter Visit Diagnoses Diagnosis Rheumatoid arthritis of multiple sites with negative rheumatoid factor (HCC)- Primary documented in this encounter Care Teams Personal Lines Advisor Relationship Specialty Start Date End Date Tomas Hyman MD [address] [place] [address] PCP - General Family Medicine 09/05/18 Isidro Heredia MD Rheumatology 02/09/11 documented as of this encounter
--- OUTSIDE RECORDS SUMMARY | 2024-05-10 18:43 | XMS_ITS | Encounter Summary ---
Author Organization [facility] Address [address] [facility] [place] [address] Care Team Providers Care Assistant Professor Of Mathematics Name Role Phone Isidro Heredia MD Unavailable [phone] Tomas Hyman MD Primary Care Provider [phone] Reason for Visit * Treatment (Elective) - Closed Specialty Diagnoses / Procedures Referred By Lawrence shah Referred To Contact Diagnoses Rheumatoid arthritis of multiple sites with negative rheumatoid factor (HCC) Procedures MI GOLIMUMAB FOR IV USE 1MG Gloria Smith MD [address] [place] [address] [address] Referral ID Status Reason Start Date Expiration Date Visits Re quested Visits Authorized [id number] Closed 05/22/2022 04/29/2023 12 12 Encounter Details Date Type Department Care Team (Late st Contact Info) Description 11/29/2022 9:06 AM CDT - 11/29/2022 11:59 PM CDT Hospital Encounter [facility] Medical [facility] - Rheumatology [address] [place] [address] Gloria Smith MD [address] [place] [address] Rheumatology Discharge Disposition: Home or [...] Body Mass Index 28.44 07/05/2022 10:45 AM RESIDENT CARE AID documented in this encounter Discharge Instructions * Discharge Instructions* Shelby Higgins RN - 11/29/2022 10:10 AM CDT Discharge Instructions [facility] Rheumatology You have received your [...] Sunday through 01-02 call the office at [phone]. After hours or on the weekend call [...] tablet by mouth 2 times daily 09/04/2022 flunmwnnmnb-rcrd-pksm sorb, PF, 0.5-1-0.5 % SOLN Instill 1 [...] 11/29/2022 10:10 AM CDT JOSE Allred Deng [id number] 11/29/2022 Diagnosis: Rheumatoid arthritis without rheumatoid factor, multiple sites (CMS/HCC) [M06.09]. Pt denies symptoms of infection or antibiotic use, no open wounds, or recent surgery, or plans for surgery in the next couple of weeks. Pt is aware that we use the 0-10 pain scale to assess discomfort. 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 assistant front desk manager pt signs consent for [...] st Contact Info) Description 06/03/2024 1:00 PM RESIDENT CARE AID Appointment [facility] - Rheumatology [address] [place] [address] [phone] 06/03/2024 2:00 PM RESIDENT CARE AID Office Visit [facility] - Rheumatology [address] [place] [address] Gloria Smith MD [address] [place] [phone] documented as of this encounter Visit Diagnoses [...] mL/hr documented in this encounter Care Teams Assistant Professor Of Mathematics Relationship Specialty Start Date End Date Tomas Hyman MD [address] [place] [address] [address] [place] [address] PCP - General Family Medicine 09/05/18 Isidro Heredia MD Rheumatology 02/09/11 documented as of this encounter
--- OUTSIDE RECORDS SUMMARY | 2024-05-10 18:44 | XMS_ITS | Encounter Summary ---
Author Organization [facility] Address [address] [facility] [place] [place] [address] Care Team Providers Care Etl Database Developer Name Role Phone Isidro Heredia MD Unavailable [phone] Tomas Hyman MD Primary Care Provider [phone] Reason for Visit * Reason Onset Date Comments Medication Prior Auth Request 02/08/2021 Encounter Details Date Type Department Care Team (Late st Contact Info) Description 02/08/2021 Telephone [facility] - Rheumatology [address] [place] [address] Gloria Dillon MD [address] [place] [phone] Medication Prior Auth Request Social History [...] COVID-19? No / Unsure 06/03/2021 12:36 PM STEM MOUNTER documented as of this encounter Miscellaneous Notes * Addendum Note - Gloria Dillon MD - 06/09/2021 4:02 PM CSTAddended by: GLORIA DILLON on: 06/09/2021 04:02 PM Modules accepted: Orders MOUNTER * Telephone Encounter - DeniaCarey Darrion - 06/09/2021 9:05 AM CST I do not see a script was ever sent to his pharmacy. If you could please do that and then they willlet us know if a prior auth is needed and will follow from there. MOUNTER * Telephone Encounter - Gloria Dillon MD - 06/03/2021 1:24 PM CST Please follow up. MOUNTER * Telephone Encounter - Gloria Dillon MD - 02/08/2021 3:35 PM CDT Request for MTX pen (otrexup) 15mg every week. Dx: seronegative RA documented in this encounter Plan of Treatment Upcoming Encounters Date Type Department Care Team (Late st Contact Info) Description 06/03/2024 1:00 PM STEM MOUNTER Appointment [facility] - Rheumatology [address] [place] [address] 06/03/2024 2:00 PM STEM MOUNTER Office Visit 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
--- OUTSIDE RECORDS SUMMARY | 2024-05-10 18:44 | XMS_ITS | Encounter Summary ---
Author Organization [facility] Address [address] [facility] [place] [address] Care Team Providers Care Clinical Athletic Instructor Name Role Phone Isidro Heredia MD Unavailable [phone] Tomas Hyman MD Primary Care Provider [phone] Reason for Visit * Reason Comments Arthritis follow up Encounter Details Date Type Department Care Team (Late st Contact Info) Description 02/06/2020 11:40 AM CDT Office Visit [facility] - Rheumatology [address] [place] [address] Gloria Smith MD [address] [place] [phone] Rheumatoid arthritis of multiple sites with [...] bone density scan - took alendronate from 1700-5643. documented in this encounter Plan of Treatment Upcoming Encounters Date Type Department Care Team (Late st Contact Info) Description 06/03/2024 1:00 PM DISTRIBUTION DISPATCHER Appointment [facility] - Rheumatology [address] [place] [address] 06/03/2024 2:00 PM DISTRIBUTION DISPATCHER Office Visit [facility] - Rheumatology [address] [place] [address] [phone] Gloria Smith MD [address] [place] [phone] documented as of this encounter Procedures [...] Region Laterality Modality Pelvis, Lower Extremity Radiogra [facility] 02/06/2020 2:55 PM CDT Impressions 02/06/2020 [...] Drug Administration. HLA Lab CLIA ID Number [id number] ? . This test was performed using PCR (Polymerase Chain Reaction)/SSOP (Sequence Specific Oligonucleotide Probes) technique. ??SBT (Sequence Based Typing) and/or SSP (Sequence Specific Primers) may be used as supplemental methods when necessary. ??Please contact [facility] Customer Service at if you have any questions. ? . Director of [facility] Laboratory Dr Frankie Salinas, PhD Blood BLOOD SPECIMEN / Unknown 02/06/2020 1:32 PM CDT 02/06/2020 Narrative Resulting Agency Comment Lab Testing performed at: [place] [id number] [facility] ??[facility] [id number] Gloria Smith MD LAB - CHEMISTRY MARII ARAUJO Performing Organization Address City/[facility]/ZIP Co de Phone Number [facility] INSURANCE BILL [address] [place] [address] * C-REACTIVE PROTEIN (02/06/2020 1:32 PM CDT) C-Reactive Protein 0.21 <=0.50 mg/dL [facility] INSURANCE BILL Blood BLOOD SPECIMEN / Unknown 02/06/2020 1:32 PM CDT 02/06/2020 Narrative Resulting Agency Comment Lab Testing performed at: [facility] [place] [address] [address] ?? [facility] [id number] Gloria Smith MD LAB - CHEMISTRY MARII ARAUJO [facility] INSURANCE BILL [address] [place] [address] * ERYTHROCYTE SEDIMENTATION RATE (02/06/2020 1:32 PM CDT) Erythrocyte Sedimentation Rate Westergren 12 0 - 20 MM/HR [facility] INSURANCE BILL Blood BLOOD SPECIMEN / Unknown 02/06/2020 1:32 PM CDT 02/06/2020 Narrative Resulting Agency Comment Lab Testing performed at: [place] [address] [address] ?? [place] [id number] Gloria Smith MD LAB - HEMATOLOGY ORD ERABLES [facility] INSURANCE BILL [address] [place] [address] * (ABNORMAL) COMPREHENSIVE METABOLIC PANEL (02/06/2020 1:32 [...] performed at: [facility] [address] [address] ?? [facility] [id number] Gloria Smith MD LAB - CHEMISTRY MARII ARAUJO [facility] INSURANCE BILL [address] [place] [address] * (ABNORMAL) CBC WITH DIFFERENTIAL (02/06/2020 1:32 [...] Resulting Agency Comment Lab Testing performed at: [address] ?? [facility] [id number] Gloria Smith MD LAB - HEMATOLOGY ORD ERABLES [facility] INSURANCE BILL [address] [place] [address] documented in this encounter Visit Diagnoses Diagnosis Rheumatoid arthritis of multiple sites with negative rheumatoid factor (HCC)- Primary Rheumatoid arthritis of multiple sites with negative rheumatoid factor (HCC) documented in this encounter Care Teams Clinical Athletic Instructor Relationship Specialty Start Date End Date Tomas Hyman MD [address] [facility] [address] [place] [address] PCP - General Family Medicine 09/05/18 Isidro Heredia MD Rheumatology 02/09/11 documented as of this encounter
--- OUTSIDE RECORDS SUMMARY | 2024-05-10 18:44 | XMS_ITS | Encounter Summary ---
Author Organization [facility] Address [address] [place] [address] Care Team Providers Care Lead Manufacturing Technician Name Role Phone Isidro Heredia MD Unavailable [phone] Tomas Hyman MD Primary Care Provider [phone] Reason for Visit * Reason Comments Follow-up Encounter Details Date Type Department Care Team (Late st Contact Info) Description 02/08/2021 2:40 PM CDT Office Visit [facility] - Rheumatology [address] [place] [address] Gloria Smith MD [address] [place] [phone] Rheumatoid arthritis of multiple sites with [...] bone density scan - took alendronate from 6756-6717. The total time spent today was 40 minutes performing chart prep, review of data and visit with the patient. documented in this encounter Plan of Treatment Upcoming Encounters Date Type Department Care Team (Late st Contact Info) Description 06/03/2024 1:00 PM APARTMENT LEASING SPECIALIST Appointment [facility] - Rheumatology [address] [place] [address] 06/03/2024 2:00 PM APARTMENT LEASING SPECIALIST Office Visit [facility] - Rheumatology [address] [place] [address] Gloria Smith MD [address] [place] [phone] Scheduled Orders Name Type Priority Associated [...] PM CDT) Advance Beneficiary Notice Option 3 [facility] INSURANCE BILL Comment: One or more tests [...] Resulting Agency Comment Lab Testing performed at: [facility] [place] [address] [facility] ??[facility] [id number] Gloria Smith MD LAB - CHEMISTRY MARII ARAUJO [facility] INSURANCE BILL [address] [place] [address] * C-REACTIVE PROTEIN (02/08/2021 4:45 PM CDT) C-Reactive Protein <1 0 - 10 mg/L [facility] INSURANCE BILL Blood BLOOD SPECIMEN / Unknown 02/08/2021 4:45 PM CDT 02/08/2021 Narrative Resulting Agency Comment Lab Testing performed at: [facility] [place] [address] ??[facility] [id number] Gloria Smith MD LAB - CHEMISTRY ORDE RABLES Performing Organization Address City/[facility]/ZIP Co de Phone Number [facility] INSURANCE BILL [address] [place] [address] * ERYTHROCYTE SEDIMENTATION RATE (02/08/2021 4:45 PM CDT) Erythrocyte Sedimentation Rate Westergren 5 0 - 30 mm/hr [facility] INSURANCE BILL Blood BLOOD SPECIMEN / Unknown 02/08/2021 4:45 PM CDT 02/08/2021 Narrative Resulting Agency Comment Lab Testing performed at: [facility] [address] ??[facility] [id number] Gloria Smith MD LAB - HEMATOLOGY ORD ERABLES Performing Organization Address City/[facility]/ZIP Co de Phone Number [facility] INSURANCE BILL [address] [place] [address] * (ABNORMAL) COMPREHENSIVE METABOLIC PANEL (02/08/2021 4:45 [...] Resulting Agency Comment Lab Testing performed at: [employer] ??[facility] [id number] Gloria Smith MD LAB - CHEMISTRY MARII ARAUJO [facility] INSURANCE BILL [address] [place] [address] * (ABNORMAL) CBC WITH DIFFERENTIAL (02/08/2021 4:45 [...] Resulting Agency Comment Lab Testing performed at: [facility] [address] ??[facility] [id number] Gloria Smith MD LAB - HEMATOLOGY ORD ERABLES [facility] INSURANCE BILL [address] [place] [address] * (ABNORMAL) VITAMIN B12 (02/08/2021 4:45 PM CDT) Vitamin B12 1,257(H) 232 - 1,245 pg/mL [facility] INSURANCE BILL Blood BLOOD SPECIMEN / Unknown 02/08/2021 4:45 PM CDT 02/08/2021 Narrative Resulting Agency Comment Lab Testing performed at: [facility] [address] ??[facility] [id number] Gloria Smith MD LAB - CHEMISTRY MARII ARAUJO [facility] INSURANCE [place]ILL [address] [place] [address] documented in this encounter Visit Diagnoses Diagnosis Rheumatoid arthritis of multiple sites with negative rheumatoid factor (HCC)- Primary Fatigue, unspecified type documented in this encounter Care Teams Lead Manufacturing Technician Relationship Specialty Start Date End Date Tomas Hyman MD [address] [place] [address] PCP - General Family Medicine 09/05/18 Isidro Heredia MD Rheumatology 02/09/11 documented as of this encounter
--- OUTSIDE RECORDS SUMMARY | 2024-05-10 18:44 | XMS_ITS | Encounter Summary ---
Author Organization [facility] Address [address] [place] [address] Care Team Providers Care Pattern Ruler Name Role Phone Isidro Heredia MD Unavailable [phone] Tomas Hyman MD Primary Care Provider [phone] Reason for Visit * Treatment (Routine) - Closed Specialty Diagnoses / Procedures Referred By Lawrence shah Referred To Contact Infusion Therapy Nurse Diagnoses Rheumatoid arthritis without rheumatoid factor, multiple sites (HCC) Procedures GA GOLIMUMAB FOR IV USE 1MG Gloria Smith MD [address] [place] [address] [address] Referral ID Status Reason Start Date Expiration Date Visits Re quested Visits Authorized [id number] Closed 10/19/2020 04/29/2021 1 8 Encounter Details Date Type Department Care Team (Late st Contact Info) Description 04/05/2021 12:49 PM BALANCE ENGINEER - 04/05/2021 11:59 PM BALANCE ENGINEER Hospital Encounter [facility] Medical [facility] - Rheumatology [address] [place] [address] Gloria Smith MD [address] [place] [address] Discharge Disposition: Home or Self [...] COVID-19? No / Unsure 04/05/2021 1:49 PM BALANCE ENGINEER documented as of this encounter Last Filed Vital Signs Vital Sign Reading Time Taken Comments Blood Pressure 132/74 04/05/2021 1:07 PM BALANCE ENGINEER Pulse 61 04/05/2021 1:07 PM BALANCE ENGINEER Temperature 36.8 ??C (98.3 ??F) 04/05/2021 1:07 PM CS T Respiratory Rate 18 04/05/2021 1:07 PM BALANCE ENGINEER Oxygen Saturation - - Inhaled Oxygen Concentration - - Weight 97 kg (213 lb 12.8 oz) 04/05/2021 1:07 PM BALANCE ENGINEER Height - - Body Mass Index 30.68 02/08/2021 2:29 PM CDT documented in this encounter Discharge Instructions * Discharge Instructions* Jody Sahu RN - 04/05/2021 1:43 PM BALANCE ENGINEER ME Rheumatology Post Infusion instructions You have [...] through Sunday 9-5 call the office at [phone] After hours or on the weekend call the exchange at [phone] If you have had lab work done [...] Hospital as your provider. Jody Sahu RN NCE ENGINEER documented in this encounter Medications at Time of Discharge Medication Sig Dispensed Refills Start Date End Date atorvastatin (LIPITOR) 40 MG tablet Take 1 (one) tablet by mouth at bedtime azyowbetmkv-chjv-vu lysorb, PF, 0.5-1-0.5 % SOLN Instill 1 [...] - 04/05/2021 1:44 PM CST JOSE Deng [id number] 04/05/2021 Diagnosis: Rheumatoid arthritis without rheumatoid factor, [...] Next treatment? 8 weeks Jody Sahu RN NCE ENGINEER documented in this encounter Plan of Treatment Upcoming Encounters Date Type Department Care Team (Late st Contact Info) Description 06/03/2024 1:00 PM BALANCE ENGINEER Appointment [facility] - Rheumatology [address] [place] [address] [phone] 06/03/2024 2:00 PM BALANCE ENGINEER Office Visit [facility] - Rheumatology [address] [place] [address] Gloria Smith MD [address] [place] [phone] documented as of this encounter Visit Diagnoses [...] filter. $ New Bag/Syringe 04/05/2021 1:21 PM BALANCE ENGINEER 200 mg 200 mL/hr documented in this encounter Care Teams Pattern Ruler Relationship Specialty Start Date End Date Tomas Hyman MD [address] [place] [address] [address] [address] [place] [address] PCP - General Family Medicine 09/05/18 Isidro Heredia MD Rheumatology 02/09/11 documented as of this encounter
--- OUTSIDE RECORDS SUMMARY | 2024-05-10 18:44 | XMS_ITS | Encounter Summary ---
Author Organization [facility] Address [address] [facility] [place] [address] Care Team Providers Care Customer Services Manager Name Role Phone Isidro Heredia MD Unavailable [phone] Tomas Hyman MD Primary Care Provider [phone] Reason for Visit * Reason Onset Date Comments MEDICATION REFILL 04/13/2021 Encounter Details Date Type Department Care Team (Late st Contact Info) Description 04/13/2021 Refill [facility] Medical [facility] - Rheumatology [address] [place] [address] Gloria Smith MD [address] [place] [address] MEDICATION REFILL Social History Tobacco Use [...] COVID-19? No / Unsure 04/05/2021 1:49 PM RUG DYER HELPER documented as of this encounter Miscellaneous Notes * Telephone Encounter - Arian Fernando RN - 04/14/2021 9:00 AM CST Okay per Dr. Smith to renew all of the below medications. DYER HELPER * Telephone Encounter - Arian Fernando RN [...] 1410 02/06/20 1332 CRP <1 <0.20 0.21 DYER HELPER * Telephone Encounter - Manuela Mirza - 04/13/2021 8:52 AM CST Last refill-01/18/2021 and02/08/2021 Last OV-02/08/2021 Next OV-06/03/2021 DYER HELPER documented in this encounter Plan of Treatment Upcoming Encounters Date Type Department Care Team (Late st Contact Info) Description 06/03/2024 1:00 PM RUG DYER HELPER Appointment [facility] - Rheumatology [address] [place] [address] 06/03/2024 2:00 PM RUG DYER HELPER Office Visit [facility] - Rheumatology [address] [place] [address] Gloria Smith MD [address] [place] [phone] documented as of this encounter Visit Diagnoses Diagnosis Rheumatoid arthritis of multiple sites with negative rheumatoid factor (HCC) documented in this encounter Care Teams Customer Services Manager Relationship Specialty Start Date End Date Tomas Hyman MD [address] [facility] [address] [place] [address] PCP - General Family Medicine 09/05/18 Isidro Heredia MD Rheumatology 02/09/11 documented as of this encounter
--- OUTSIDE RECORDS SUMMARY | 2024-05-10 18:44 | XMS_ITS | Encounter Summary ---
Author Organization [facility] Address [address] [facility] [place] [address] Care Team Providers Care Banbury Operator Name Role Phone Isidro Heredia MD Unavailable Tomas Hyman MD Primary Care Provider [phone] Reason for Visit * Treatment (Routine) - Closed Specialty Diagnoses / Procedures Referred By Lawrence shah Referred To Contact Infusion Therapy Nurse Diagnoses Rheumatoid arthritis without rheumatoid factor, multiple sites (HCC) Procedures PA GOLIMUMAB FOR IV USE 1MG Gloria Smith MD [address] [place] [address] [address] Referral ID Status Reason Start Date Expiration Date Visits Re quested Visits Authorized [id number] Closed 05/12/2021 04/29/2022 1 6 Encounter Details Date Type Department Care Team (Late st Contact Info) Description 06/03/2021 11:51 AM READING INTERVENTION TEACHER - 06/03/2021 11:59 PM READING INTERVENTION TEACHER Hospital Encounter [facility] Medical [facility] - Rheumatology [address] [place] [address] Gloria Smith MD [address] [place] [address] Discharge Disposition: Home or Self [...] COVID-19? No / Unsure 06/03/2021 12:36 PM READING INTERVENTION TEACHER documented as of this encounter Last Filed Vital Signs Vital Sign Reading Time Taken Comments Blood Pressure 135/78 06/03/2021 12:16 PM READING INTERVENTION TEACHER Pulse 106 06/03/2021 12:16 PM READING INTERVENTION TEACHER Temperature 36.4 ??C (97.6 ??F) 06/03/2021 12:[address] Respiratory Rate 18 06/03/2021 12:16 PM READING INTERVENTION TEACHER Oxygen Saturation - - Inhaled Oxygen Concentration - - Weight 95.7 kg (211 lb) 06/03/2021 12:16 PM READING INTERVENTION TEACHER Height - - Body Mass Index 30.28 02/08/2021 2:29 PM CDT documented in this encounter Discharge Instructions * Discharge Instructions* Jody Sahu RN - 06/03/2021 12:23 PM READING INTERVENTION TEACHER [place] Rheumatology Post Infusion instructions You have [...] through Sunday 9-5 call the office at [phone] After hours or on the weekend call the exchange at [phone] If you have had lab work done [...] Hospital as your provider. Jody Sahu RN ING INTERVENTION TEACHER documented in this encounter Medications at Time of Discharge Medication Sig Dispensed Refills Start Date End Date atorvastatin (LIPITOR) 40 MG tablet Take 1 (one) tablet by mouth at bedtime kijvtxyhzov-ugyx-eb lysorb, PF, 0.5-1-0.5 % SOLN Instill 1 [...] - 06/03/2021 12:33 PM CST JOSE Deng [id number] 06/03/2021 Diagnosis: Rheumatoid arthritis without rheumatoid factor, [...] Next treatment? 8 weeks Jody Sahu RN ING INTERVENTION TEACHER documented in this encounter Plan of Treatment Upcoming Encounters Date Type Department Care Team (Late st Contact Info) Description 06/03/2024 1:00 PM READING INTERVENTION TEACHER Appointment [facility] - Rheumatology [address] [place] [phone] 06/03/2024 2:00 PM READING INTERVENTION TEACHER Office Visit [facility] - Rheumatology [address] [place] [address] Gloria Smith MD [address] [place] [phone] documented as of this encounter Visit Diagnoses [...] filter. $ New Bag/Syringe 06/03/2021 12:29 PM READING INTERVENTION TEACHER 200 mg 200 mL/hr documented in this encounter Care Teams Banbury Operator Relationship Specialty Start Date End Date Tomas Hyman MD [address] [place] [address] PCP - General Family Medicine 09/05/18 Isidro Heredia MD Rheumatology 02/09/11 documented as of this encounter
--- OUTSIDE RECORDS SUMMARY | 2024-05-10 18:44 | XMS_ITS | Encounter Summary ---
Author Organization [facility] Address [address] [facility] [place] [address] Care Team Providers Care Contract Officer Name Role Phone Isidro Heredia MD Unavailable [phone] Tomas Hyman MD Primary Care Provider [phone] Reason for Visit * Treatment (Routine) - Closed Specialty Diagnoses / Procedures Referred By Contact Referred To Contact Infusion Therapy Nurse / Rheumatology Diagnoses Rheumatoid arthritis without rheumatoid factor, multiple sites (HCC) Procedures [place] INFLIXIMAB INJECTION Gloria Smith MD [address] [place] [address] [facility] [address] [address] Referral ID Status Reason Start Date Expiration Date Visits Re quested Visits Authorized [id number] Closed 05/04/2020 04/29/2021 12 12 Encounter Details Date Type Department Care Team (Late st Contact Info) Description 06/29/2020 10:57 AM MANAGER MEDICAL WRITING - 06/29/2020 11:59 PM MANAGER MEDICAL WRITING Hospital Encounter [facility] Medical [facility] - Rheumatology [address] [place] [address] Gloria Smith MD [address] [place], [place] [address] [address] Discharge Disposition: Home or Self [...] COVID-19? No / Unsure 06/29/2020 11:44 AM MANAGER MEDICAL WRITING documented as of this encounter Last Filed Vital Signs Vital Sign Reading Time Taken Comments Blood Pressure 130/74 06/29/2020 11:14 AM MANAGER MEDICAL WRITING Pulse 79 06/29/2020 11:14 AM MANAGER MEDICAL WRITING Temperature 36.6 ??C (97.9 ??F) 06/29/2020 11:[address] Respiratory Rate 18 06/29/2020 11:14 AM MANAGER MEDICAL WRITING Oxygen Saturation - - Inhaled Oxygen Concentration - - Weight 105.7 kg (233 lb) 06/29/2020 11:14 AM MANAGER MEDICAL WRITING Height - - Body Mass Index 33.43 05/10/2020 10:26 AM MANAGER MEDICAL WRITING documented in this encounter Discharge Instructions * Discharge Instructions* Jody Sahu RN - 06/29/2020 11:20 AM MANAGER MEDICAL WRITING [place] Rheumatology Post Infusion instructions You have [...] through Sunday 9-5 call the office at [phone] After hours or on the weekend call the exchange at [phone] If you have had lab work done [...] [facility]. Jody Sahu, TOVA GER MEDICAL WRITING documented in this encounter Medications at Time of Discharge Medication Sig Dispensed Refills Start Date End Date atorvastatin (LIPITOR) 40 MG tablet Take 1 (one) tablet by mouth at bedtime jccpxypatvs-otjd-ytn ysorb, PF, 0.5-1-0.5 % SOLN Instill 1 [...] 06/29/2020 11:40 AM CST JOSE Allred Deng [id number] 06/29/2020 Diagnosis: Rheumatoid arthritis without rheumatoid factor, multiple sites [M06.09]. Pt denies symptoms of infection or antibiotic use, no open wounds, or recent surgery, or plans for surgery in the next couple of weeks. Pt is aware that we use the 0-10 pain scale to assess discomfort. 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 senior front end engineer pt signs consent for [...] treatment? 4 weeks Jody Sahu RN GER MEDICAL WRITING documented in this encounter Plan of Treatment Upcoming Encounters Date Type Department Care Team (Late st Contact Info) Description 06/03/2024 1:00 PM MANAGER MEDICAL WRITING Appointment [facility] - Rheumatology [address] [place] [address] 06/03/2024 2:00 PM MANAGER MEDICAL WRITING Office Visit [facility] - Rheumatology [address] [place] [address] Gloria Smith MD [address] [place] [phone] documented as of this encounter Visit [...] filter. $ New Bag/Syringe 06/29/2020 11:32 AM MANAGER MEDICAL WRITING 600 mg 135 mL/hr documented in this encounter Care Teams Contract Officer Relationship Specialty Start Date End Date Tomas Hyman MD [address] [place], [place] [id number] PCP - General Family Medicine 09/05/18 Isidro Heredia MD Rheumatology 02/09/11 documented as of this encounter
--- OUTSIDE RECORDS SUMMARY | 2024-05-10 18:44 | XMS_ITS | Encounter Summary ---
Author Organization [facility] Address [address] [facility] [place] [address] Care Team Providers Care Convict Guard Name Role Phone Isdiro Heredia MD Unavailable [phone] Tomas Hyman MD Primary Care Provider [phone] Encounter Details Date Type Department Care Team (Latest Contact Info) Description 12/19/2019 10:58 AM CDT - 12/19/2019 11:59 PM CDT Hospital Encounter [facility] Pain Care [address] [place] [address] [place] [address] [place] [address] Discharge Disposition: Home or Self [...] headache, or any other problems, please call [phone] or after hours callDr. Barnett at [phone] and tell them your physician's name. The exchange will alert the physician senior production supervisor. If sedation is given: No sedation given. For Your Next Visit: No additional instructions. Other Instructions: May remove band-aid in 12 Hours. Return in 3-[address] Lazar documented in this encounter Medications at Time of Discharge Medication Sig Dispensed Refills Start Date End Date atorvastatin (LIPITOR) 40 MG tablet Take 1 (one) tablet by mouth at bedtime ffluoxcmrqw-ocba-yc lysorb, PF, 0.5-1-0.5 % SOLN Instill 1 [...] acute distress, well developed, well nourished categoryPropId= [id number] examid= [id number] GENERALAPPEARANCE: in no acute distress, well developed, well nourished. NC/AT, Symmetrical categoryPropId= [id number] examid= [id number] HEAD: NC/AT, Symmetrical. PERRLA, EOMI, Visual keen intact categoryPropId= [id number] examid= [id number] EYES: PERRLA, EOMI, Visual keen intact. Hearing intact categoryPropId= [id number] examid= [id number] EARS: Hearing intact. Supple, non-tender, no thyroidomegaly categoryPropId= [id number] examid= [id number] NECK/THYROID: Supple, non-tender, no thyroidomegaly. Lungs clear w/o wheezes, no rales or rhonchi categoryPropId= [id number] examid= [id number] RESPIRATORY: Lungs clear w/o wheezes, no rales or rhonchi. regular rate & rhythm, no murmurs categoryPropId= [id number] examid= [id number] HEART: regular rate & rhythm, no murmurs. [...] cm Diameter Left calf: 43 cm categoryPropId= [id number] examid= [id number] MUSCULOSKELETAL: ambulates with slow antalgic gait with [...] Skin w/o lesions, moist, well perfused categoryPropId= [id number] examid= [id number] SKIN: Skin w/o lesions, moist, well perfused. Patient alert & oriented, appropriate mood & affect, speech normal, tone normal, affect appropriate, NAD. Patient denies suicidal ideation. Patient denies homicidal ideation. categoryPropId= [id number] examid= [id number] PSYCH: Patient alert & oriented, appropriate mood & affect, speech normal, tone normal, affect appropriate, NAD. Patient denies suicidal ideation. Patient denieshomicidal ideation.. Active bowel sounds, soft, no mass or organomegaly categoryPropId= [id number] examid= [id number] GASTROINTESTINAL: Active bowel sounds, soft, no mass [...] DRAINS: None. COMPLICATIONS: None. CONDITION POSTPROCEDURE: Stable. BUSINESS INTELLIGENCE CONSULTANT: None. INDICATIONS: Please refer to H/P for [...] on how to reach the clinic or senior production supervisor physician at anytime for questions or complaints. documented in this encounter Plan of Treatment Upcoming Encounters Date Type Department Care Team (Late st Contact Info) Description 06/03/2024 1:00 PM FISH EGG PACKER Appointment [facility] - Rheumatology [address] [place] [phone] 06/03/2024 2:00 PM FISH EGG PACKER Office Visit [facility] - Rheumatology [address] [place] [address] Gloria Smith MD [address] [place] [phone] Pending Results Name Type Priority Associated Diagnoses [...] Back documented in this encounter Care Teams Convict Guard Relationship Specialty Start Date End Date Tomas Hyman MD [address] [facility] [address] [place] [address] PCP - General Family Medicine 09/05/18 Isidro Heredia MD Rheumatology 02/09/11 documented as of this encounter
--- OUTSIDE RECORDS SUMMARY | 2024-05-10 18:44 | XMS_ITS | Encounter Summary ---
Author Organization [facility] Address [address] [facility] [address] Care Team Providers Care Coke Drawer Hand Name Role Phone Isidro Heredia MD Unavailable [phone] Tomas Hyman MD Primary Care Provider [phone] Reason for Visit * Reason Onset Date Comments Question 04/08/2020 Encounter Details Date Type Department Care Team (Late st Contact Info) Description 04/08/2020 Telephone [facility] Orthopedics [address] [place] [phone] Nini Han MD [address] [place] [phone] Question Social History Tobacco Use Types [...] COVID-19? No / Unsure 04/06/2020 1:43 PM ELECTRIFIER OPERATOR documented as of this encounter Miscellaneous Notes * Telephone Encounter - Eryn Matos - 04/08/2020 12:30 PM CST LEFT A MESSAGE ASKING CHALINO CASEY TO RETURN MY CALL TO SCHEDULE AN APPOINTMENT TRIFIER OPERATOR * Telephone Encounter - Eryn Matos Shahnaz - 04/08/2020 12:30 PM CST ----- Message from Gloria Smith MD sent at 04/06/2020 3:27 PM ELECTRIFIER OPERATOR ----- Regarding: referral to dr Ortega Referring him to Dr. Ortega. Dx: right palm ganglion cyst. TRIFIER OPERATOR documented in this encounter Plan of Treatment Upcoming Encounters Date Type Department Care Team (Late st Contact Info) Description 06/03/2024 1:00 PM ELECTRIFIER OPERATOR Appointment [facility] - Rheumatology [address] [place] [address] 06/03/2024 2:00 PM ELECTRIFIER OPERATOR Office Visit [facility] - Rheumatology [address] [place] [address] Gloria Smith MD [address] [place] [phone] documented as of this encounter Visit Diagnoses Not on filedocumented in this encounter Care Teams Coke Drawer Hand Relationship Specialty Start Date End Date Tomas Hyman MD [address] [facility] [address] [place] [address] PCP - General Family Medicine 09/05/18 Isidro Heredia MD Rheumatology 02/09/11 documented as of this encounter
--- OUTSIDE RECORDS SUMMARY | 2024-05-10 18:44 | XMS_ITS | Encounter Summary ---
Author Organization [facility] Address [address] [facility] [place] [address] Care Team Providers Care Bar Porter Name Role Phone Isidro Heredia MD Unavailable [phone] Tomas Hyman MD Primary Care Provider [phone] Reason for Visit * Treatment (Routine) - Closed Specialty Diagnoses / Procedures Referred By Contact Referred To Contact Infusion Therapy Nurse / Rheumatology Diagnoses Rheumatoid arthritis without rheumatoid factor, multiple sites (HCC) Procedures CT INFLIXIMAB INJECTION Gloria Smith MD [address] [place] [address] [facility] [address] [address] Referral ID Status Reason Start Date Expiration Date Visits Re quested Visits Authorized [id number] Closed 05/04/2020 04/29/2021 12 12 Encounter Details Date Type Department Care Team (Late st Contact Info) Description 06/01/2020 10:50 AM STRATEGIC PLANNING CONSULTANT - 06/01/2020 11:59 PM STRATEGIC PLANNING CONSULTANT Hospital Encounter [facility] Medical [facility] - Rheumatology [address] [place] [address] Gloria Smith MD [address] [place], [place] [address], [place] [address] Discharge Disposition: Home or Self [...] COVID-19? No / Unsure 05/04/2020 2:08 PM STRATEGIC PLANNING CONSULTANT documented as of this encounter Last Filed Vital Signs Vital Sign Reading Time Taken Comments Blood Pressure 119/72 06/01/2020 11:08 AM STRATEGIC PLANNING CONSULTANT Pulse 75 06/01/2020 11:08 AM STRATEGIC PLANNING CONSULTANT Temperature 36.3 ??C (97.3 ??F) 06/01/2020 11:[address] Respiratory Rate 18 06/01/2020 11:08 AM STRATEGIC PLANNING CONSULTANT Oxygen Saturation - - Inhaled Oxygen Concentration - - Weight 104.3 kg (230 lb) 06/01/2020 11:08 AM STRATEGIC PLANNING CONSULTANT Height - - Body Mass Index 33 05/10/2020 10:26 AM STRATEGIC PLANNING CONSULTANT documented in this encounter Discharge Instructions * Discharge Instructions* Jody Sahu RN - 06/01/2020 11:14 AM STRATEGIC PLANNING CONSULTANT [place] Rheumatology Post Infusion instructions You have [...] through Sunday 9-5 call the office at [phone] After hours or on the weekend call the exchange at [phone] If you have had lab work done [...] Hospital as your provider. Jody Sahu, RN TEGIC PLANNING CONSULTANT documented in this encounter Medications at Time of Discharge Medication Sig Dispensed Refills Start Date End Date atorvastatin (LIPITOR) 40 MG tablet Take 1 (one) tablet by mouth at bedtime dpqgtzsphoz-vqky-gxj ysorb, PF, 0.5-1-0.5 % SOLN Instill 1 [...] 06/01/2020 11:22 AM CST JOSE Allred Ish [id number] 06/01/2020 Diagnosis: Rheumatoid arthritis without rheumatoid factor, [...] Next treatment? 4 weeks Jody Sahu RN TEGIC PLANNING CONSULTANT documented in this encounter Plan of Treatment Upcoming Encounters Date Type Department Care Team (Late st Contact Info) Description 06/03/2024 1:00 PM STRATEGIC PLANNING CONSULTANT Appointment [facility] - Rheumatology [address] [place] [address] 06/03/2024 2:00 PM STRATEGIC PLANNING CONSULTANT Office Visit [facility] - Rheumatology [address] [place] [address] Gloria Smith MD [address] [place] [phone] documented as of this encounter Visit [...] filter. $ New Bag/Syringe 06/01/2020 11:24 AM STRATEGIC PLANNING CONSULTANT 600 mg 135 mL/hr documented in this encounter Care Teams Bar Porter Relationship Specialty Start Date End Date Tomas Hyman MD [address] [place] [address] PCP - General Family Medicine 09/05/18 Isidro Heredia MD Rheumatology 02/09/11 documented as of this encounter
--- OUTSIDE RECORDS SUMMARY | 2024-05-10 18:44 | XMS_ITS | Encounter Summary ---
Author Organization [facility] Address [address] [facility] [place] [address] Care Team Providers Care Brazer Induction Name Role Phone Isidro Heredia MD Unavailable [phone] Tomas Hyman MD Primary Care Provider Encounter [...] COVID-19? No / Unsure 06/29/2020 11:44 AM SERVICE CENTER REPRESENTATIVE documented as of this encounter Plan of Treatment Upcoming Encounters Date Type Department Care Team (Late st Contact Info) Description 06/03/2024 1:00 PM SERVICE CENTER REPRESENTATIVE Appointment [facility] - Rheumatology [address] [place] [address] 06/03/2024 2:00 PM SERVICE CENTER REPRESENTATIVE Office Visit [facility] - Rheumatology [address] [place] [address] Gloria Smith MD [address] [place] [phone] documented as of this encounter Visit Diagnoses Not on filedocumented in this encounter Care Teams Brazer Induction Relationship Specialty Start Date End Date Tomas Hyman MD [address] [facility] [address] [place] [address] PCP - General Family Medicine 09/05/18 Isidro Heredia MD Rheumatology 02/09/11 documented as of this encounter
--- OUTSIDE RECORDS SUMMARY | 2024-05-10 18:44 | XMS_ITS | Encounter Summary ---
Author Organization [facility] Address [address] [facility] [place] [address] Care Team Providers Care Clinical Interviewer Name Role Phone Isidro Heredia MD Unavailable [phone] Tomas Hyman MD Primary Care Provider [phone] Reason for Visit * Reason Onset Date Comments MEDICATION REFILL 01/17/2021 Encounter Details Date Type Department Care Team (Late st Contact Info) Description 01/17/2021 Refill [facility] Medical [facility] - Rheumatology [address] [place] [address] Gloria Smith MD [address] [place] [phone] MEDICATION REFILL Social History Tobacco Use [...] Contact Info) Description 06/03/2024 1:00 PM HR SHARED SERVICES CONSULTANT Appointment [facility] - Rheumatology [address] [place] [address] 06/03/2024 2:00 PM HR SHARED SERVICES CONSULTANT Office Visit [facility] - Rheumatology [address] [place] [address] Gloria Smith MD [address] [place] [phone] documented as of this encounter Visit Diagnoses Diagnosis Rheumatoid arthritis of multiple sites with negative rheumatoid factor (HCC) documented in this encounter Care Teams Clinical Interviewer Relationship Specialty Start Date End Date Tomas Hyman MD [address] [facility] [address] [place] [address] PCP - General Family Medicine 09/05/18 Isidro Heredia MD Rheumatology 02/09/11 documented as of this encounter
--- OUTSIDE RECORDS SUMMARY | 2024-05-10 18:44 | XMS_ITS | Encounter Summary ---
Author Organization [facility] Address [address] [facility] [place] [address] Care Team Providers Care Ticket Maker Name Role Phone Isidro Heredia MD Unavailable [phone] Tomas Hyman MD Primary Care Provider [phone] Encounter Details Date Type Department Care Team [...] Contact Info) Description 06/03/2024 1:00 PM SCHOOL SUPERVISOR Appointment [facility] - Rheumatology [address] [place] [address] 06/03/2024 2:00 PM SCHOOL SUPERVISOR Office Visit [facility] - Rheumatology [address] [place] [address] Gloria Smith MD [address] [place] [phone] documented as of this encounter Visit Diagnoses Not on filedocumented in this encounter Care Teams Ticket Maker Relationship Specialty Start Date End Date Tomas Hyman MD [address] [facility] [address] [place] [address] PCP - General Family Medicine 09/05/18 Isidro Heredia MD Rheumatology 02/09/11 documented as of this encounter
--- OUTSIDE RECORDS SUMMARY | 2024-05-10 18:44 | XMS_ITS | Encounter Summary ---
Author Organization [facility] Address [address] [facility] [place] [address] Care Team Providers Care Bottom Liner Name Role Phone Isidro Heredia MD Unavailable [phone] Tomas Hyman MD Primary Care Provider Reason for Visit * Reason Comments Establish Care right hand Encounter Details Date Type Department Care Team (Late st Contact Info) Description 05/10/2020 9:45 AM MD PSYCHIATRY Office Visit [facility] Orthopedics [address] [place] [phone] Nini Han MD [address] [place] [phone] Dupuytren's contracture (Primary Dx); Hand pain, [...] COVID-19? No / Unsure 05/04/2020 2:08 PM MD PSYCHIATRY documented as of this encounter Last Filed Vital Signs Vital Sign Reading Time Taken Comments Blood Pressure - - Pulse - - Temperature - - Respiratory Rate - - Oxygen Saturation - - Inhaled Oxygen Concentration - - Weight 102.1 kg (225 lb) 05/10/2020 10:26 AM MD PSYCHIATRY Height 177.8 cm (5' 10 ) 05/10/2020 10:26 AM MD PSYCHIATRY Body Mass Index 32.28 05/10/2020 10:26 AM MD PSYCHIATRY documented in this encounter Progress Notes * Eryn Matos - 05/10/2020 10:25 AM CST Right hand PSYCHIATRY documented in this encounter H&P Notes * [...] or problems. Nini Han M.D. CK/MedQ #: [id number] cc: Tomas Hyman PSYCHIATRY documented in this encounter Procedure Notes * Mora Delgado RT(R) - 05/10/2020 10:38 AM CSTAssociated Order(s): XR HAND RIGHT 3VW OR MORE See chart for xray results PSYCHIATRY documented in this encounter Plan of Treatment Upcoming Encounters Date Type Department Care Team (Late st Contact Info) Description 06/03/2024 1:00 PM MD PSYCHIATRY Appointment [facility] - Rheumatology [address] [place] [address] 06/03/2024 2:00 PM MD PSYCHIATRY Office Visit [facility] - Rheumatology [address] [place] [address] Gloria Smith MD [address] [place] [phone] documented as of this encounter Procedures Procedure Name Priority Date/Time Associated Diagnosis Comments XR HAND RIGHT 3VW OR MORE Routine 05/10/2020 10:37 AM MD PSYCHIATRY Hand pain, right documented in this encounter Results * XR HAND RIGHT 3VW OR MORE (05/10/2020 10:37 AM MD PSYCHIATRY) Anatomical Region Laterality Modality Wrist / Hand Computed Radiogr aphy Narrative 05/10/2020 10:38 AM MD PSYCHIATRY Mora Delgado, RT(R) ? 05/10/2020 11:39 AM See chart for xray results Nini Han MD DIAGNOSTIC IMAGING ORDERABLES documented in this encounter Visit Diagnoses Diagnosis Dupuytren's contracture- Primary Contracture of palmar fascia Hand pain, right Pain in limb Hand pain, right Pain in limb documented in this encounter Care Teams Bottom Liner Relationship Specialty Start Date End Date Tomas Hyman MD [address] [facility] [address] [place] [address] PCP - General Family Medicine 09/05/18 Isidro Heredia MD Rheumatology 02/09/11 documented as of this encounter
--- OUTSIDE RECORDS SUMMARY | 2024-05-10 18:44 | XMS_ITS | Encounter Summary ---
Author Organization [facility] Address [address] [facility] [place] [address] Care Team Providers Care Gasoline Power Shovel Operator Name Role Phone Isidro Heredia MD Unavailable [phone] Tomas yHman MD Primary Care Provider [phone] Reason for Visit * Reason Onset Date Comments MEDICATION REFILL 04/05/2020 Encounter Details Date Type Department Care Team (Late st Contact Info) Description 04/05/2020 Refill [facility] - Rheumatology [address] [place] [address] Gloria Smith MD [address] [place] [phone] MEDICATION REFILL Social History Tobacco Use [...] (Late Contact Info) Description 06/03/2024 1:00 PM CS ASSOCIATE Appointment [facility] - Rheumatology [address] [place] [address] 06/03/2024 2:00 PM CS ASSOCIATE Office Visit [facility] - Rheumatology [address] [place] [address] Gloria Smith MD [address] [place] [address] documented as of this encounter Visit Diagnoses Not on filedocumented in this encounter Care Teams Gasoline Power Shovel Operator Relationship Specialty Start Date End Date Tomas Hyman MD [address] [place] [address] PCP - General Family Medicine 09/05/18 Isidro Heredia MD Rheumatology 02/09/11 documented as of this encounter
--- OUTSIDE RECORDS SUMMARY | 2024-05-10 18:44 | XMS_ITS | Encounter Summary ---
Author Organization [facility] Address [address] [facility] [place] [address] Care Team Providers Care Coremaker Floor Name Role Phone Isidro Heredia MD Unavailable [phone] Tomas Hyman MD Primary Care Provider Reason for Referral * OP/Amb RFL Auth (Routine) - Closed Specialty Diagnoses / Procedures Referred By Contsarahi t Referred To Contact Diagnoses Right shoulder pain, unspecified chronicity Procedures VT DRAIN/INJECT LARGE JOINT/BURSA Gloria Smith MD [address] [place] [address] Referral ID Status Reason Start Date Expiration Date Visits Re quested Visits Authorized [id number] Closed 06/03/2021 06/03/2022 1 1 VULCANIZING OPERATOR Reason for Visit * Reason Comments Rheumatoid Arthritis Encounter Details Date Type Department Care Team (Late st Contact Info) Description 06/03/2021 1:00 PM LEAD VULCANIZING OPERATOR Office Visit [facility] - Rheumatology [address] [place] [address] Gloria Smith MD [facility] [place] [address] Rheumatoid arthritis of multiple sites [...] COVID-19? No / Unsure 06/03/2021 12:36 PM LEAD VULCANIZING OPERATOR documented as of this encounter Last Filed Vital Signs Vital Sign Reading Time Taken Comments Blood Pressure 135/78 06/03/2021 12:46 PM LEAD VULCANIZING OPERATOR Pulse 106 06/03/2021 12:46 PM LEAD VULCANIZING OPERATOR Temperature - - Respiratory Rate - - Oxygen Saturation - - Inhaled Oxygen Concentration - - Weight 95.7 kg (211 lb) 06/03/2021 12:46 PM LEAD VULCANIZING OPERATOR Height 177.8 cm (5' 10 ) 06/03/2021 12:46 PM LEAD VULCANIZING OPERATOR Body Mass Index 30.28 06/03/2021 12:46 PM LEAD VULCANIZING OPERATOR documented in this encounter Progress Notes [...] in MCP and PIP joints bilaterally. Hand bookkeeping manager is decreased bilaterally. Tenderness in right shoulder. [...] bone density scan - took alendronate from [id number]. The total time spent today was 40 minutes performing chart prep, review of data and visit with the patient. VULCANIZING OPERATOR documented in this encounter Plan of Treatment Upcoming Encounters Date Type Department Care Team (Late st Contact Info) Description 06/03/2024 1:00 PM LEAD VULCANIZING OPERATOR Appointment [facility] - Rheumatology [address] [place] [phone] 06/03/2024 2:00 PM LEAD VULCANIZING OPERATOR Office Visit [facility] - Rheumatology [address] [place] [phone] Gloria Smith MD [address] [place] [phone] Scheduled Orders Name Type Priority Associated Diagnoses [...] has been sent to [facility] Resulting Agency Comment Lab Testing performed at: [facility] [place] [id number] [facility] ??[facility] [id number] Gloria Smith MD LAB - CHEMISTRY MARII ARAUJO [facility] INSURANCE BILL [address] [place] [address] * (ABNORMAL) CBC WITH DIFFERENTIAL (07/27/2021 11:07 [...] this report has been sent to [facility] Resulting Agency Comment Lab Testing performed at: [facility] ??[facility] [phone] Gloria Smith MD LAB - HEMATOLOGY ORD ERABLES [facility] INSURANCE BILL [address] [place] [address] documented in this encounter Visit Diagnoses Diagnosis [...] at 1445 $ Given 06/03/2021 2:37 PM LEAD VULCANIZING OPERATOR Right Shoulder triamcinolone acetonide (Kenalog-40) injection 40 mg 40 mg, Intra-articular, ONCE, 1 dose, On Sun06/03/21 at 1445, Shake well before using. $ Given 06/03/2021 2:38 PM LEAD VULCANIZING OPERATOR 40 mg Righ t Shoulder documented in this encounter Care Teams Coremaker Floor Relationship Specialty Start Date End Date Tomas Hyman MD [address] [facility] [address] [place] [address] PCP - General Family Medicine 09/05/18 Isidro Heredia MD Rheumatology 02/09/11 documented as of this encounter
--- OUTSIDE RECORDS SUMMARY | 2024-05-10 18:44 | XMS_ITS | Encounter Summary ---
Author Organization [facility] Address [address] [place] [address] Care Team Providers Care Conference Organizer Name Role Phone Isidro Heredia MD Unavailable [phone] Tomas Hyman MD Primary Care Provider [phone] Reason for Visit * Reason Onset Date Comments MEDICATION REFILL 07/12/2020 MEDICATION REFILL 07/20/2020 Encounter Details Date Type Department Care Team (Late st Contact Info) Description 07/12/2020 Refill [facility] Medical [facility] - Rheumatology [address] [place] [address] Gloria Smith MD [address] [place] [phone] MEDICATION REFILL; MEDICATION REFILL Social History [...] COVID-19? No / Unsure 06/29/2020 11:44 AM REIMBURSEMENT REP documented as of this encounter Miscellaneous Notes [...] st Contact Info) Description 06/03/2024 1:00 PM REIMBURSEMENT REP Appointment [facility] - Rheumatology [address] [place], [place] [phone] 06/03/2024 2:00 PM REIMBURSEMENT REP Office Visit [facility] - Rheumatology [address] [place] [address] Gloria Smith MD [address] [place] [phone] documented as of this encounter Visit Diagnoses Not on filedocumented in this encounter Care Teams Conference Organizer Relationship Specialty Start Date End Date Tomas Hyman MD [address] [facility] [address] [place] [address] PCP - General Family Medicine 09/05/18 Isidro Heredia MD Rheumatology 02/09/11 documented as of this encounter
--- OUTSIDE RECORDS SUMMARY | 2024-05-10 18:44 | XMS_ITS | Encounter Summary ---
Author Organization [facility] Address [address] [facility] [place] [address] Care Team Providers Care Fork Repairer Name Role Phone Isidro Heredia MD Unavailable [phone] Tomas Hyman MD Primary Care Provider [phone] Encounter Details Date Type Department Care Team [...] COVID-19? No / Unsure 04/06/2020 1:43 PM ANALYTICAL SCIENCES DIRECTOR documented as of this encounter Plan of Treatment Upcoming Encounters Date Type Department Care Team (Late st Contact Info) Description 06/03/2024 1:00 PM ANALYTICAL SCIENCES DIRECTOR Appointment [facility] - Rheumatology [address] [place] [address] 06/03/2024 2:00 PM ANALYTICAL SCIENCES DIRECTOR Office Visit [facility] - Rheumatology [address] [place] [address] Gloria Smith MD [address] [place] [phone] documented as of this encounter Visit Diagnoses Not on filedocumented in this encounter Care Teams Fork Repairer Relationship Specialty Start Date End Date Tomas Hyman MD [address] [facility] [address] [place] [address] PCP - General Family Medicine 09/05/18 Isidro Heredia MD Rheumatology 02/09/11 documented as of this encounter
--- OUTSIDE RECORDS SUMMARY | 2024-05-10 18:44 | XMS_ITS | Encounter Summary ---
Author Organization [facility] Address [address] [place] [address] Care Team Providers Care Cd Reactor Operator Name Role Phone Isidro Heredia MD Unavailable [phone] Tomas Hyman MD Primary Care Provider [phone] Reason for Visit * Treatment (Routine) - Closed Specialty Diagnoses / Procedures Referred By Contact Referred To Contact Infusion Therapy Nurse / Rheumatology Diagnoses Rheumatoid arthritis without rheumatoid factor, multiple sites (HCC) Procedures IN INFLIXIMAB INJECTION Gloria Smith MD [address] [place] [address] [facility] [address] [address] Referral ID Status Reason Start Date Expiration Date Visits Re quested Visits Authorized [id number] Closed 05/04/2020 04/29/2021 12 12 Encounter Details Date Type Department Care Team (Late st Contact Info) Description 05/04/2020 11:42 AM CHILDCARE PROVIDER - 05/04/2020 11:59 PM CHILDCARE PROVIDER Hospital Encounter [facility] Medical [facility] - Rheumatology [address] [place] [address] Gloria Smith MD [address] [place] [address] [address] Discharge Disposition: Home or Self [...] COVID-19? No / Unsure 05/04/2020 2:08 PM CHILDCARE PROVIDER documented as of this encounter Last Filed Vital Signs Vital Sign Reading Time Taken Comments Blood Pressure 126/84 05/04/2020 12:14 PM CHILDCARE PROVIDER Pulse 78 05/04/2020 12:14 PM CHILDCARE PROVIDER Temperature 36.2 ??C (97.2 ??F) 05/04/2020 12:[address] Respiratory Rate 18 05/04/2020 12:14 PM CHILDCARE PROVIDER Oxygen Saturation - - Inhaled Oxygen Concentration - - Weight 103.4 kg (228 lb) 05/04/2020 12:14 PM CHILDCARE PROVIDER Height - - Body Mass Index 32.71 11/10/2019 10:34 AM CDT documented in this encounter Discharge Instructions * Discharge Instructions* Jody Sahu RN - 05/04/2020 12:41 PM CHILDCARE PROVIDER [place] Rheumatology Post Infusion instructions You have [...] through Sunday 9-5 call the office at [phone] After hours or on the weekend call the exchange at [phone] If you have had lab work done [...] [facility] as your provider. Jody Sahu, TOVA DCARE PROVIDER documented in this encounter Medications at Time of Discharge Medication Sig Dispensed Refills Start Date End Date atorvastatin (LIPITOR) 40 MG tablet Take 1 (one) tablet by mouth at bedtime dqcudbxryci-agnj-qnz ysorb, PF, 0.5-1-0.5 % SOLN Instill 1 [...] 05/04/2020 12:42 PM CST JOSE [place] Ish [id number] 05/04/2020 Diagnosis: Rheumatoid arthritis without rheumatoid factor, multiple sites [M06.09]. Pt denies symptoms of infection or antibiotic use, no open wounds, or recent surgery, or plans for surgery in the next couple of weeks. Pt is aware that we use the 0-10 pain scale to assess discomfort. 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 agent spa desk pt signs consent for treatment for [...] Next treatment? 4 weeks Jody Sahu RN DCARE PROVIDER documented in this encounter Plan of Treatment Upcoming Encounters Date Type Department Care Team (Late st Contact Info) Description 06/03/2024 1:00 PM CHILDCARE PROVIDER Appointment [facility] - Rheumatology [address] [place] [address] 06/03/2024 2:00 PM CHILDCARE PROVIDER Office Visit [facility] - Rheumatology [address] [place] [address] Gloria Smith MD [address] [place] [phone] documented as of this encounter Visit [...] filter. $ New Bag/Syringe 05/04/2020 12:28 PM CHILDCARE PROVIDER 600 mg 135 mL/hr documented in this encounter Care Teams Cd Reactor Operator Relationship Specialty Start Date End Date Tomas Hyman MD [address] [place] [address] PCP - General Family Medicine 09/05/18 Isidro Heredia MD Rheumatology 02/09/11 documented as of this encounter
--- OUTSIDE RECORDS SUMMARY | 2024-05-10 18:44 | XMS_ITS | Encounter Summary ---
Author Organization [facility] Address [address] [place] [address] Care Team Providers Care Professor Of Art History Name Role Phone Isidro Heredia MD Unavailable [phone] Tomas Hyman MD Primary Care Provider [phone] Reason for Visit * Reason Onset Date Comments MEDICATION REFILL 01/21/2020 Encounter Details Date Type Department Care Team (Late st Contact Info) Description 01/21/2020 Refill [facility] - Rheumatology [address] [place] [address] Gloria Smith MD [address] [place] [phone] MEDICATION REFILL Social History Tobacco Use [...] Contact Info) Description 06/03/2024 1:00 PM CHILD AND FAMILY COUNSELOR Appointment [facility] - Rheumatology [address] [place] [phone] 06/03/2024 2:00 PM CHILD AND FAMILY COUNSELOR Office Visit [facility] - Rheumatology [address] [place] [address] [phone] Gloria Smith MD [address] [place] [phone] documented as of this encounter Visit Diagnoses Not on filedocumented in this encounter Care Teams Professor Of Art History Relationship Specialty Start Date End Date Tomas Hyman MD [address] [facility] [address] [place] [address] PCP - General Family Medicine 09/05/18 Isidro Heredia MD Rheumatology 02/09/11 documented as of this encounter
--- OUTSIDE RECORDS SUMMARY | 2024-05-10 18:44 | XMS_ITS | Encounter Summary ---
Author Organization [facility] Address [address] [place] [address] Care Team Providers Care Boot Liner Maker Name Role Phone Isidro Heredia MD Unavailable [phone] Tomas Hyman MD Primary Care Provider [phone] Reason for Visit * Treatment (Routine) - Closed Specialty Diagnoses / Procedures Referred By Lawrence shah Referred To Contact Infusion Therapy Nurse Diagnoses Rheumatoid arthritis without rheumatoid factor, multiple sites (HCC) Procedures PA GOLIMUMAB FOR IV USE 1MG Gloria Smith MD [address] [place] [address] [address] Referral ID Status Reason Start Date Expiration Date Visits Re quested Visits Authorized [id number] Closed 10/19/2020 04/29/2021 1 8 Encounter Details Date Type Department Care Team (Late st Contact Info) Description 11/16/2020 11:50 AM CDT - 11/16/2020 11:59 PM CDT Hospital Encounter [facility] Medical [facility] - Rheumatology [address] [place] [address] Gloria Smith MD [address] [place] [address] Discharge Disposition: Home or Self [...] Sahu RN - 11/16/2020 12:31 PM CDT MD Rheumatology Post Infusion instructions You have received [...] through Sunday 9-5 call the office at [phone] After hours or on the weekend call the exchange at [phone] If you have had lab work done [...] 1 (one) tablet by mouth at bedtime jgcyvqgqmwk-yzvn-brk ysorb, PF, 0.5-1-0.5 % SOLN Instill 1 [...] - 11/16/2020 12:14 PM CDT JOSE Deng [id number] 11/16/2020 Diagnosis: Rheumatoid arthritis without rheumatoid factor, [...] st Contact Info) Description 06/03/2024 1:00 PM GANG VIBRATOR OPERATOR Appointment [facility] - Rheumatology [address] [place] [address] 06/03/2024 2:00 PM GANG VIBRATOR OPERATOR Office Visit [facility] - Rheumatology [address] [place] [address] Gloria Smith MD [address] [place] [phone] documented as of this encounter Visit [...] mL/hr documented in this encounter Care Teams Boot Liner Maker Relationship Specialty Start Date End Date Tomas Hyman MD [address] [place] [address] [address] [place] [address] PCP - General Family Medicine 09/05/18 Isidro Heredia MD Rheumatology 02/09/11 documented as of this encounter
--- OUTSIDE RECORDS SUMMARY | 2024-05-10 18:44 | XMS_ITS | Encounter Summary ---
Author Organization [facility] Address [address] [facility] [place] [address] Care Team Providers Care Medical Laboratory Specialist Name Role Phone Isidro Heredia MD Unavailable [phone] Tomas Hyman MD Primary Care Provider [phone] Encounter Details Date Type Department Care Team [...] Contact Info) Description 06/03/2024 1:00 PM MANAGER LABOR RELATIONS Appointment [facility] - Rheumatology [address] [place] [address] 06/03/2024 2:00 PM MANAGER LABOR RELATIONS Office Visit [facility] - Rheumatology [address] [place] [address] Gloria Smith MD [address] [place] [phone] documented as of this encounter Visit Diagnoses Not on filedocumented in this encounter Care Teams Medical Laboratory Specialist Relationship Specialty Start Date End Date Tomas Hyman MD [address] [facility] [address] [place] [address] PCP - General Family Medicine 09/05/18 Isidro Heredia MD Rheumatology 02/09/11 documented as of this encounter
--- OUTSIDE RECORDS SUMMARY | 2024-05-10 18:44 | XMS_ITS | Encounter Summary ---
Author Organization [facility] Address [address] [facility] [place] [address] Care Team Providers Care Environmental Conservation Officer Name Role Phone Isidro Heredia MD Unavailable [phone] Tomas Hyman MD Primary Care Provider [phone] Reason for Visit * Treatment (Routine) - Closed Specialty Diagnoses / Procedures Referred By Lawrence shah Referred To Contact Infusion Therapy Nurse Diagnoses Rheumatoid arthritis without rheumatoid factor, multiple sites (HCC) Procedures [place] INFLIXIMAB INJECTION Gloria Smith MD [address] [place] [address] [address] Referral ID Status Reason Start Date Expiration Date Visits Re quested Visits Authorized [id number] Closed 05/09/2019 04/29/2020 1 12 Encounter Details Date Type Department Care Team (Late st Contact Info) Description 04/06/2020 12:46 PM MINES SAFETY ENGINEER - 04/06/2020 11:59 PM MINES SAFETY ENGINEER Hospital Encounter [facility] Medical [facility] - Rheumatology [address] [place] [address] Gloria Smith MD [address] [place] [phone] Discharge Disposition: Home or Self Care [...] COVID-19? No / Unsure 04/06/2020 1:43 PM MINES SAFETY ENGINEER documented as of this encounter Last Filed Vital Signs Vital Sign Reading Time Taken Comments Blood Pressure 138/75 04/06/2020 1:06 PM MINES SAFETY ENGINEER Pulse 74 04/06/2020 1:06 PM MINES SAFETY ENGINEER Temperature 36.2 ??C (97.2 ??F) 04/06/2020 1:06 PM CS T Respiratory Rate 18 04/06/2020 1:06 PM MINES SAFETY ENGINEER Oxygen Saturation - - Inhaled Oxygen Concentration - - Weight 103 kg (227 lb) 04/06/2020 1:06 PM MINES SAFETY ENGINEER Height - - Body Mass Index 32.57 11/10/2019 10:34 AM CDT documented in this encounter Discharge Instructions * Discharge Instructions* Jody Sahu RN - 04/06/2020 1:12 PM MINES SAFETY ENGINEER PA Rheumatology Post Infusion instructions You have [...] through Sunday 9-5 call the office at [phone] After hours or on the weekend call the exchange at [phone] If you have had lab work done [...] Hospital as your provider. Jody Sahu, RN S SAFETY ENGINEER documented in this encounter Medications at Time of Discharge Medication Sig Dispensed Refills Start Date End Date atorvastatin (LIPITOR) 40 MG tablet Take 1 (one) tablet by mouth at bedtime cdiatrikinj-afiw-him ysorb, PF, 0.5-1-0.5 % SOLN Instill 1 [...] - 04/06/2020 1:37 PM CST JOSE Deng [id number] 04/06/2020 Diagnosis: Rheumatoid arthritis without rheumatoid factor, [...] Next treatment? 4 weeks Jody Sahu RN S SAFETY ENGINEER documented in this encounter Plan of Treatment Upcoming Encounters Date Type Department Care Team (Late st Contact Info) Description 06/03/2024 1:00 PM MINES SAFETY ENGINEER Appointment [facility] - Rheumatology [address] [place] [address] 06/03/2024 2:00 PM MINES SAFETY ENGINEER Office Visit [facility] - Rheumatology [address] [place] [address] Gloria Smith MD [address] [place] [phone] documented as of this encounter Visit [...] filter. $ New Bag/Syringe 04/06/2020 1:23 PM MINES SAFETY ENGINEER 600 mg 135 mL/hr documented in this encounter Care Teams Environmental Conservation Officer Relationship Specialty Start Date End Date Tomas Hyman MD [address] [place] [address] PCP - General Family Medicine 09/05/18 Isidro Heredia MD Rheumatology 02/09/11 documented as of this encounter
--- OUTSIDE RECORDS SUMMARY | 2024-05-10 18:44 | XMS_ITS | Encounter Summary ---
Author Organization [facility] Address [address] [place] [address] Care Team Providers Care Acute Care Physical Therapist Name Role Phone Isidro Heredia MD Unavailable [phone] Tomas Hyman MD Primary Care Provider [phone] Reason for Visit * Treatment (Routine) - Closed Specialty Diagnoses / Procedures Referred By Lawrence shah Referred To Contact Infusion Therapy Nurse Diagnoses Rheumatoid arthritis without rheumatoid factor, multiple sites (HCC) Procedures [place] INFLIXIMAB INJECTION Gloria Smith MD [address] [place] [address] [address] Referral ID Status Reason Start Date Expiration Date Visits Re quested Visits Authorized [id number] Closed 05/09/2019 04/29/2020 1 12 Encounter Details Date Type Department Care Team (Late st Contact Info) Description 03/05/2020 10:37 AM COOK NIGHT - 03/05/2020 11:59 PM COOK NIGHT Hospital Encounter [facility] Medical [facility] - Rheumatology [address] [place] [address] Gloria Smith MD [address] [place] [phone] Discharge Disposition: Home or Self Care [...] COVID-19? No / Unsure 03/05/2020 11:52 AM COOK NIGHT documented as of this encounter Last Filed Vital Signs Vital Sign Reading Time Taken Comments Blood Pressure 128/85 03/05/2020 11:20 AM COOK NIGHT Pulse 77 03/05/2020 11:20 AM COOK NIGHT Temperature 37.1 ??C (98.8 ??F) 03/05/2020 11:[address] Respiratory Rate 18 03/05/2020 11:20 AM COOK NIGHT Oxygen Saturation - - Inhaled Oxygen Concentration - - Weight 103.9 kg (229 lb) 03/05/2020 11:20 AM COOK NIGHT Height - - Body Mass Index 32.86 11/10/2019 10:34 AM CDT documented in this encounter Discharge Instructions * Discharge Instructions* Jody Sahu RN - 03/05/2020 11:45 AM COOK NIGHT [place] Rheumatology Post Infusion instructions You have [...] through Sunday 9-5 call the office at [phone] After hours or on the weekend call the exchange at [phone] If you have had lab work done [...] [facility]. Jody aShu, RN NIGHT documented in this encounter Medications at Time of Discharge Medication Sig Dispensed Refills Start Date End Date atorvastatin (LIPITOR) 40 MG tablet Take 1 (one) tablet by mouth at bedtime bggqegockgk-ejei-bza ysorb, PF, 0.5-1-0.5 % SOLN Instill 1 [...] - 03/05/2020 11:45 AM CST JOSE Deng [id number] 03/05/2020 Diagnosis: Rheumatoid arthritis without rheumatoid factor, [...] Next treatment? 4 weeks Jody Sahu, RN NIGHT documented in this encounter Plan of Treatment Upcoming Encounters Date Type Department Care Team (Late st Contact Info) Description 06/03/2024 1:00 PM COOK NIGHT Appointment [facility] - Rheumatology [address] [place] [phone] 06/03/2024 2:00 PM COOK NIGHT Office Visit [facility] - Rheumatology [address] [place] [address] Gloria Smith MD [address] [place] [phone] documented as of this encounter Visit [...] filter. $ New Bag/Syringe 03/05/2020 11:39 AM COOK NIGHT 600 mg 250 mL/hr documented in this encounter Care Teams Acute Care Physical Therapist Relationship Specialty Start Date End Date Tomas Hyman MD [address] [facility] [address] [place] [address] PCP - General Family Medicine 09/05/18 Isidro Heredia MD Rheumatology 02/09/11 documented as of this encounter
--- OUTSIDE RECORDS SUMMARY | 2024-05-10 18:44 | XMS_ITS | Encounter Summary ---
Author Organization [facility] Address [address] [facility] [place] [address] Care Team Providers Care Food Tray Assembler Name Role Phone Isidro Heredia MD Unavailable [phone] Tomas Hyman MD Primary Care Provider [phone] Encounter Details Date Type Department Care Team (Latest Contact Info) Description 12/19/2019 10:56 AM CDT - 12/19/2019 10:57 AM CDT Hospital Encounter [facility] Pain Care [address] [place] [address] [place] [address] [place] [address] Discharge Disposition: Home or Self [...] 1 (one) tablet by mouth at bedtime vfteqiesntp-vzzu-sm lysorb, PF, 0.5-1-0.5 % SOLN Instill 1 [...] Contact Info) Description 06/03/2024 1:00 PM LICENSED PSYCHOLOGIST DIRECTOR Appointment [facility] - Rheumatology [address] [place] [address] 06/03/2024 2:00 PM LICENSED PSYCHOLOGIST DIRECTOR Office Visit [facility] - Rheumatology [address] [place] [address] Gloria Smith MD [address] [place] [phone] documented as of this encounter Visit Diagnoses Not on filedocumented in this encounter Care Teams Food Tray Assembler Relationship Specialty Start Date End Date Tomas Hyman MD [address] [address] [address] [place] [address] PCP - General Family Medicine 09/05/18 Isidro Heredia MD Rheumatology 02/09/11 documented as of this encounter
--- OUTSIDE RECORDS SUMMARY | 2024-05-10 18:44 | XMS_ITS | Encounter Summary ---
Author Organization [facility] Address [address] [place] [address] Care Team Providers Care Branch Logistics Supervisor Name Role Phone Isidro Heredia MD Unavailable [phone] Tomas Hyman MD Primary Care Provider [phone] Encounter Details Date Type Department Care Team [...] COVID-19? No / Unsure 04/05/2021 1:49 PM WEAVER NARROW FABRICS documented as of this encounter Plan of Treatment Upcoming Encounters Date Type Department Care Team (Late st Contact Info) Description 06/03/2024 1:00 PM WEAVER NARROW FABRICS Appointment [facility] - Rheumatology [address] [place] [address] 06/03/2024 2:00 PM WEAVER NARROW FABRICS Office Visit [facility] - Rheumatology [address] [place] [address] Gloria Smith MD [address] [place] [phone] documented as of this encounter Visit Diagnoses Not on filedocumented in this encounter Care Teams Branch Logistics Supervisor Relationship Specialty Start Date End Date Tomas Hyman MD [address] [facility] [address] [place] [address] PCP - General Family Medicine 09/05/18 Isidro Heredia MD Rheumatology 02/09/11 documented as of this encounter
--- OUTSIDE RECORDS SUMMARY | 2024-05-10 18:44 | XMS_ITS | Encounter Summary ---
Author Organization [facility] Address [address] [place] [address] Care Team Providers Care Financial Health Counselor Name Role Phone Isidro Heredia MD Unavailable [phone] Tomas Hyman MD Primary Care Provider [phone] Encounter Details Date Type Department Care Team [...] COVID-19? No / Unsure 04/09/2020 1:56 PM RESTRICTIVE PREPARATION OPERATOR documented as of this encounter Plan of Treatment Upcoming Encounters Date Type Department Care Team (Late st Contact Info) Description 06/03/2024 1:00 PM RESTRICTIVE PREPARATION OPERATOR Appointment [facility] - Rheumatology [address] [place] [address] 06/03/2024 2:00 PM RESTRICTIVE PREPARATION OPERATOR Office Visit [facility] - Rheumatology [address] [place] [address] Gloria Smith MD [address] [place] [phone] documented as of this encounter Visit Diagnoses Not on filedocumented in this encounter Care Teams Financial Health Counselor Relationship Specialty Start Date End Date Tomas Hyman MD [address] [facility] [address] [place] [address] PCP - General Family Medicine 09/05/18 Isidro Heredia MD Rheumatology 02/09/11 documented as of this encounter
--- OUTSIDE RECORDS SUMMARY | 2024-05-10 18:44 | XMS_ITS | Encounter Summary ---
Author Organization [facility] Address [address] [place] [address] Care Team Providers Care Hand Frame Surgical Elastic Knitter Name Role Phone Isidro Heredia MD Unavailable [phone] Tomas Hyman MD Primary Care Provider [phone] Reason for Visit * Reason Onset Date Comments MEDICATION REFILL 07/27/2020 Encounter Details Date Type Department Care Team (Late st Contact Info) Description 07/27/2020 Refill [facility] Medical [facility] - Rheumatology [address] [place] [address] Gloria Smith MD [address] [place] [phone] MEDICATION REFILL Social History Tobacco Use [...] st Contact Info) Description 06/03/2024 1:00 PM PRINTER'S ASSISTANT Appointment [facility] - Rheumatology [address] [place] [address] 06/03/2024 2:00 PM PRINTER'S ASSISTANT Office Visit [facility] - Rheumatology [address] [place] [address] Gloria Smith MD [address] [place] [phone] documented as of this encounter Visit Diagnoses Not on filedocumented in this encounter Care Teams Hand Frame Surgical Elastic Knitter Relationship Specialty Start Date End Date Tomas Hyman MD [address] [place] [address] PCP - General Family Medicine 09/05/18 Isidro Heredia MD Rheumatology 02/09/11 documented as of this encounter
--- OUTSIDE RECORDS SUMMARY | 2024-05-10 18:44 | XMS_ITS | Encounter Summary ---
Author Organization [facility] Address [address] [facility] [place] [address] Care Team Providers Care Foam Gun Operator Name Role Phone Isidro Heredia MD Unavailable [phone] Tomas Hyman MD Primary Care Provider [phone] Reason for Visit * Reason Comments Arthritis follow up Encounter Details Date Type Department Care Team (Late st Contact Info) Description 04/06/2020 2:40 PM INSTRUMENTATION INSTRUCTOR Office Visit [facility] - Rheumatology [address] [place] [address] Gloria Smith MD [address] [place] [phone] Rheumatoid arthritis of multiple sites with [...] COVID-19? No / Unsure 04/06/2020 1:43 PM INSTRUMENTATION INSTRUCTOR documented as of this encounter Last Filed Vital Signs Vital Sign Reading Time Taken Comments Blood Pressure 138/75 04/06/2020 2:29 PM INSTRUMENTATION INSTRUCTOR Pulse 74 04/06/2020 2:29 PM INSTRUMENTATION INSTRUCTOR Temperature 36.2 ??C (97.2 ??F) 04/06/2020 2:29 PM CS T Respiratory Rate - - Oxygen Saturation - - Inhaled Oxygen Concentration - - Weight 103 kg (227 lb) 04/06/2020 2:29 PM INSTRUMENTATION INSTRUCTOR Height - - Body Mass Index [...] bone density scan - took alendronate from [id number]. RUMENTATION INSTRUCTOR documented in this encounter Plan of Treatment Upcoming Encounters Date Type Department Care Team (Late st Contact Info) Description 06/03/2024 1:00 PM INSTRUMENTATION INSTRUCTOR Appointment [facility] - Rheumatology [address] [place] [address] 06/03/2024 2:00 PM INSTRUMENTATION INSTRUCTOR Office Visit [facility] - Rheumatology [address] [place] [address] Gloria Smith MD [address] [place] [phone] documented as of this encounter Procedures Procedure Name Priority Date/Time Associated Diagnosis Comments CBC W AUTO DIFFERENTIAL Routine 05/04/2020 2:52 PM INSTRUMENTATION INSTRUCTOR Rheumatoid arthritis of multiple sites with negative rheumatoid factor (HCC) COMPREHENSIVE METABOLIC PANEL Routine 05/04/2020 2:52 PM INSTRUMENTATION INSTRUCTOR Rheumatoid arthritis of multiple sites with negative rheumatoid factor (HCC) documented in this encounter Results * (ABNORMAL) COMPREHENSIVE METABOLIC PANEL (05/04/2020 2:52 PM INSTRUMENTATION INSTRUCTOR) Glucose 108(H) 70 - 105 mg/dL [...] BLOOD SPECIMEN / Unknown 05/04/2020 2:52 PM INSTRUMENTATION INSTRUCTOR 05/04/2020 Narrative Resulting Agency Comment Lab Testing performed at: [facility] [address] [place] [address] ?? [place] [id number] Gloria Smith MD LAB - CHEMISTRY MARII ARAUJO [facility] INSURANCE BILL [address] [place] [address] * CBC WITH DIFFERENTIAL (05/04/2020 2:52 PM INSTRUMENTATION INSTRUCTOR) WBC 8.7 4.4 - 10.7 x10E9/L [...] BILL Comment:MPV [facility] BLOOD ([facility]) 1 0.7 fl 9.4-12.9 Granulocytes % [...] BLOOD SPECIMEN / Unknown 05/04/2020 2:52 PM INSTRUMENTATION INSTRUCTOR 05/04/2020 Narrative Resulting Agency Comment Lab Testing performed at: [address] ?? [facility] [id number] Gloria Smith MD LAB - HEMATOLOGY ORD ERABLES [facility] INSURANCE BILL [address] [place] [address] documented in this encounter Visit Diagnoses Diagnosis Rheumatoid arthritis of multiple sites with negative rheumatoid factor (HCC)- Primary documented in this encounter Care Teams Foam Gun Operator Relationship Specialty Start Date End Date Tomas Hyman MD [address] [place] [address] PCP - General Family Medicine 09/05/18 Isidro Heredia MD Rheumatology 02/09/11 documented as of this encounter
--- OUTSIDE RECORDS SUMMARY | 2024-05-10 18:44 | XMS_ITS | Encounter Summary ---
Author Organization [facility] Address [address] [facility] [address] Care Team Providers Care Veneer Patcher Name Role Phone Isidro Heredia MD Unavailable [phone] Tomas Hyman MD Primary Care Provider [phone] Encounter Details Date Type Department Care Team [...] COVID-19? No / Unsure 05/04/2020 2:08 PM PAPERHANGER AND PAINTER documented as of this encounter Plan of Treatment Upcoming Encounters Date Type Department Care Team (Late st Contact Info) Description 06/03/2024 1:00 PM PAPERHANGER AND PAINTER Appointment [facility] - Rheumatology [address] [place] [address] 06/03/2024 2:00 PM PAPERHANGER AND PAINTER Office Visit [facility] - Rheumatology [address] [place] [address] Gloria Smith MD [address] [place] [phone] documented as of this encounter Visit Diagnoses Not on filedocumented in this encounter Care Teams Veneer Patcher Relationship Specialty Start Date End Date Tomas Hyman MD [address] [facility] [address] [place] [address] PCP - General Family Medicine 09/05/18 Isidro Heredia MD Rheumatology 02/09/11 documented as of this encounter
--- OUTSIDE RECORDS SUMMARY | 2024-05-10 18:44 | XMS_ITS | Encounter Summary ---
Author Organization [facility] Address [address] [facility] [place] [address] Care Team Providers Care Appraiser Art Name Role Phone Isidro Heredia MD Unavailable [phone] Tomas Hyman MD Primary Care Provider [phone] Reason for Visit * Reason Onset Date Comments MEDICATION REFILL 10/29/2020 Encounter Details Date Type Department Care Team (Late st Contact Info) Description 10/29/2020 Refill [facility] - Rheumatology [address] [place] [address] Gloria Smith MD [address] [place] [phone] MEDICATION REFILL Social History Tobacco Use [...] Contact Info) Description 06/03/2024 1:00 PM GAS STATION MANAGER Appointment [facility] - Rheumatology [address] [place] [address] 06/03/2024 2:00 PM GAS STATION MANAGER Office Visit [facility] - Rheumatology [address] [place] [address] Gloria Smith MD [address] [place] [phone] documented as of this encounter Visit Diagnoses Not on filedocumented in this encounter Care Teams Appraiser Art Relationship Specialty Start Date End Date Tomas Hyman MD [address] [place] [address] PCP - General Family Medicine 09/05/18 Isidro Heredia MD Rheumatology 02/09/11 documented as of this encounter
--- OUTSIDE RECORDS SUMMARY | 2024-05-10 18:44 | XMS_ITS | Encounter Summary ---
Author Organization [facility] Address [address] [facility] [place] [address] Care Team Providers Care Senior Electronics Technician Name Role Phone Isidro Heredia MD Unavailable [phone] Tomas Hyman MD Primary Care Provider Encounter Details Date Type Department Care Team (Late st Contact Info) Description 02/06/2020 1:41 PM CDT - 02/06/2020 11:59 PM CDT Hospital Encounter [facility] Urgent Care - Medical Imaging [address] [place] [address] Gloria Smith MD [address] [place] [phone] Discharge Disposition: Home or Self Care Social [...] 1 (one) tablet by mouth at bedtime clddgtgmmxi-dvhn-qm lysorb, PF, 0.5-1-0.5 % SOLN Instill 1 [...] Contact Info) Description 06/03/2024 1:00 PM PATIENT OBSERVER Appointment [facility] - Rheumatology [address] [place] [address] 06/03/2024 2:00 PM PATIENT OBSERVER Office Visit [facility] - Rheumatology [address] [place] [address] Gloria Smith MD [address] [place] [phone] documented as of this encounter Procedures Procedure Name Priority Date/Time Associated Diagnosis Comments XR SI JOINTS 3VW OR MORE Routine 02/06/2020 1:46 PM CDT Rheumatoid arthritis of multiple sites with negative rheumatoid factor (HCC) documented in this encounter Results * XR SI JOINTS 3VW OR MORE (02/06/2020 1:46 PM CDT) Anatomical Region Laterality Modality Pelvis, Lower Extremity [facility] 02/06/2020 2:55 PM CDT Impressions 02/06/2020 [...] in this encounter Care Teams Senior Electronics Technician Relationship Specialty Start Date End Date Tomas Hyman MD [address] [place] [address] PCP - General Family Medicine 09/05/18 Isidro Heredia MD Rheumatology 02/09/11 documented as of this encounter
--- OUTSIDE RECORDS SUMMARY | 2024-05-10 18:44 | XMS_ITS | Encounter Summary ---
Author Organization [facility] Address [address] [facility] [place] [address] Care Team Providers Care Caustic Mixer Name Role Phone Isidro Heredia MD Unavailable [phone] Tomas Hyman MD Primary Care Provider [phone] Reason for Referral * OP/Amb RFL Auth (Routine) - Closed Specialty Diagnoses / Procedures Referred By Contsarahi t Referred To Contact Diagnoses Right shoulder pain, unspecified chronicity Procedures NV DRAIN/INJECT LARGE JOINT/BURSA Gloria Smith MD [address] [place] [address] Referral ID Status Reason Start Date Expiration Date Visits Re quested Visits Authorized [id number] Closed 08/24/2020 08/24/2021 1 1 Reason for Visit * Reason Comments Follow-up Encounter Details Date Type Department Care Team (Late st Contact Info) Description 08/24/2020 11:40 AM CDT Office Visit [facility] - Rheumatology [address] [place] [address] Gloria Smith MD [facility] [place] [address] Rheumatoid arthritis of multiple sites [...] bone density scan - took alendronate from [id number]. documented in this encounter Miscellaneous Notes * Addendum Note - Chandrakant Madrid - 08/24/2020 1:50 PM CDTAddended by: CHANDRAKANT MADRID on: 08/24/2020 01:50 PM Modules accepted: Orders documented in this encounter Plan of Treatment Upcoming Encounters Date Type Department Care Team (Late st Contact Info) Description 06/03/2024 1:00 PM MINE ENGINEERING SUPERVISOR Appointment [facility] - Rheumatology [address] [place] [address] 06/03/2024 2:00 PM MINE ENGINEERING SUPERVISOR Office Visit [facility] - Rheumatology [address] [place] [address] Gloria Smith MD [address] [place] [phone] documented as of this encounter Procedures [...] Resulting Agency Comment [facility]: [facility] [address] [facility] ??[facility] [id number] Gloria Smith MD LAB - CHEMISTRY MARII ARAUJO [facility] INSURANCE BILL [address] [place] [address] * (ABNORMAL) COMPREHENSIVE METABOLIC PANEL (08/24/2020 12:33 [...] Agency Comment Lab Testing performed at: [facility] [address] [place], [place] [address]cierra I[place]ra ?? [place] [id number] Gloria Smith MD LAB - CHEMISTRY MARII ARAUJO [facility] INSURANCE BILL [address] [place] [address] * (ABNORMAL) CBC WITH DIFFERENTIAL (08/24/2020 12:33 [...] x10E9/L [facility] INSURANCE BILL Comment:MPV FL BLOOD ([facility]) 1 1.7 fl 9.4-12.9 Granulocytes % [...] Agency Comment Lab Testing performed at: [facility] [address] [facility] ?? [place] [id number] Gloria Smith MD LAB - HEMATOLOGY ORD ERABLES [facility] INSURANCE BILL [address] [place] [address] documented in this encounter Visit Diagnoses Diagnosis [...] Shoulder documented in this encounter Care Teams Caustic Mixer Relationship Specialty Start Date End Date Tomas Hyman MD [address] [facility] [address] [place] [address] PCP - General Family Medicine 09/05/18 Isidro Heredia MD Rheumatology 02/09/11 documented as of this encounter
--- OUTSIDE RECORDS SUMMARY | 2024-05-10 18:44 | XMS_ITS | Encounter Summary ---
Author Organization [facility] Address [address] [facility] [place] [address] Care Team Providers Care Research Laboratory Specialist Name Role Phone Isidro Heredia MD Unavailable [phone] Tomas Hyman MD Primary Care Provider Reason for Visit * Reason Onset Date Comments Question 04/06/2020 Encounter Details Date Type Department Care Team (Late st Contact Info) Description 04/06/2020 Telephone [facility] Orthopedics [address] [place] [address], [address] [address] Nini Han MD [address] [place] [address] Question Social History Tobacco Use [...] COVID-19? No / Unsure 04/06/2020 1:43 PM ACCREDITED PHARMACY TECHNICIAN documented as of this encounter Miscellaneous Notes * Telephone Encounter - Eryn Matos - 04/06/2020 3:48 PM CST LEFT 2 MESSAGES ASKING CHALINO CASEY TO CALL ME BACK TO SCHEDULE AN APPOINTMENT EDITED PHARMACY TECHNICIAN * Telephone Encounter - Eryn Matos Shahnaz - 04/06/2020 3:47 PM CST ----- Message from Gloria Smith MD sent at 04/06/2020 3:27 PM ACCREDITED PHARMACY TECHNICIAN ----- Regarding: referral to dr Ortega Referring him to Dr. Ortega. Dx: right palm ganglion cyst. EDITED PHARMACY TECHNICIAN documented in this encounter Plan of Treatment Upcoming Encounters Date Type Department Care Team (Late st Contact Info) Description 06/03/2024 1:00 PM ACCREDITED PHARMACY TECHNICIAN Appointment [facility] - Rheumatology [address] [place] [address] 06/03/2024 2:00 PM ACCREDITED PHARMACY TECHNICIAN Office Visit [facility] - Rheumatology [address] [place] [address] Gloria Smith MD [address] [place] [phone] documented as of this encounter Visit Diagnoses Not on filedocumented in this encounter Care Teams Research Laboratory Specialist Relationship Specialty Start Date End Date Tomas Hyman MD [address] [facility] [address] [place] [address] PCP - General Family Medicine 09/05/18 Isidro Heredia MD Rheumatology 02/09/11 documented as of this encounter
--- OUTSIDE RECORDS SUMMARY | 2024-05-10 18:44 | XMS_ITS | Encounter Summary ---
Author Organization [facility] Address [address] [place] [address] Care Team Providers Care Director Of Strategic Initiatives Name Role Phone Isidro Heredia MD Unavailable [phone] Tomas Hyman MD Primary Care Provider [phone] Encounter Details Date Type Department Care Team [...] Info) Description 06/03/2024 1:00 PM DENITRATOR Appointment [facility] - Rheumatology [address] [place] [address] 06/03/2024 2:00 PM DENITRATOR Office Visit [facility] - Rheumatology [address] [place] [address] Gloria Smith MD [address] [place] [phone] documented as of this encounter Visit Diagnoses Not on filedocumented in this encounter Care Teams Director Of Strategic Initiatives Relationship Specialty Start Date End Date Tomas Hyman MD [address] [facility] [address] [place] [address] PCP - General Family Medicine 09/05/18 Isidro Heredia MD Rheumatology 02/09/11 documented as of this encounter
--- OUTSIDE RECORDS SUMMARY | 2024-05-10 18:44 | XMS_ITS | Encounter Summary ---
Author Organization [facility] Address [address] [place] [place] [address] Care Team Providers Care Field Artillery Crewmember Name Role Phone Isidro Heredia MD Unavailable Tomas Hyman MD Primary Care Provider [phone] Encounter Details Date Type Department Care Team [...] st Contact Info) Description 06/03/2024 1:00 PM FAST FOOD DELIVERY DRIVER Appointment [facility] - Rheumatology [address] [place] [address] 06/03/2024 2:00 PM FAST FOOD DELIVERY DRIVER Office Visit [facility] - Rheumatology [address] [place] [address] Gloria Smith MD [address] [place] [phone] documented as of this encounter Visit Diagnoses Not on filedocumented in this encounter Care Teams Field Artillery Crewmember Relationship Specialty Start Date End Date Tomas Hyman MD [address] [facility] [address] [place] [address] PCP - General Family Medicine 09/05/18 Isidro Heredia MD Rheumatology 02/09/11 documented as of this encounter
--- OUTSIDE RECORDS SUMMARY | 2024-05-10 18:44 | XMS_ITS | Encounter Summary ---
Author Organization [facility] Address [address] [place] [address] Care Team Providers Care Club Lounge Attendant Name Role Phone Isidro Heredia MD Unavailable [phone] Tomas Hyman MD Primary Care Provider [phone] Reason for Visit * Treatment (Routine) - Closed Specialty Diagnoses / Procedures Referred By Contact Referred To Contact Infusion Therapy Nurse / Rheumatology Diagnoses Rheumatoid arthritis without rheumatoid factor, multiple sites (HCC) Procedures [place] INFLIXIMAB INJECTION Gloria Smith MD [address] [place] [address] [facility] [address] [address] Referral ID Status Reason Start Date Expiration Date Visits Re quested Visits Authorized [id number] Closed 05/04/2020 04/29/2021 12 12 Encounter Details Date Type Department Care Team (Late st Contact Info) Description 09/21/2020 12:46 PM CDT - 09/21/2020 11:59 PM CDT Hospital Encounter [facility] Medical [facility] - Rheumatology [address] [place] [address] Gloria Smith MD [facility] [place] [address] Discharge Disposition: Home or Self [...] Sahu RN - 09/21/2020 1:37 PM CDT [place] Rheumatology Post Infusion instructions [...] through Sunday 9-5 call the office at [phone] After hours or on the weekend call the exchange at [phone] If you have had lab work done [...] 1 (one) tablet by mouth at bedtime bnmcvcnlsaq-urjf-wgw ysorb, PF, 0.5-1-0.5 % SOLN Instill 1 [...] - 09/21/2020 1:32 PM CDT JOSE Deng [id number] 09/21/2020 Diagnosis: Rheumatoid arthritis without rheumatoid factor, [...] st Contact Info) Description 06/03/2024 1:00 PM APPLICATION SECURITY ARCHITECT Appointment [facility] - Rheumatology [address] [place] [phone] 06/03/2024 2:00 PM APPLICATION SECURITY ARCHITECT Office Visit [facility] - Rheumatology [address] [place] [address] Gloria Smith MD [address] [place] [phone] documented as of this encounter Visit Diagnoses [...] mL/hr documented in this encounter Care Teams Club Lounge Attendant Relationship Specialty Start Date End Date Tomas Hyman MD [address] [place] [address] PCP - General Family Medicine 09/05/18 Isidro Heredia MD Rheumatology 02/09/11 documented as of this encounter
--- OUTSIDE RECORDS SUMMARY | 2024-05-10 18:44 | XMS_ITS | Encounter Summary ---
Author Organization [facility] Address [address] [facility] [place] [address] Care Team Providers Care Home Specialist Name Role Phone Isidro Heredia MD Unavailable [phone] Tomas Hyman MD Primary Care Provider [phone] Reason for Visit * Treatment (Routine) - Closed Specialty Diagnoses / Procedures Referred By Contact Referred To Contact Infusion Therapy Nurse / Rheumatology Diagnoses Rheumatoid arthritis without rheumatoid factor, multiple sites (HCC) Procedures [place] INFLIXIMAB INJECTION Gloria Smith MD [address] [place] [address] [facility] [address] [address] Referral ID Status Reason Start Date Expiration Date Visits Re quested Visits Authorized [id number] Closed 05/04/2020 04/29/2021 12 12 Encounter Details Date Type Department Care Team (Late st Contact Info) Description 10/19/2020 1:54 PM CDT - 10/19/2020 11:59 PM CDT Hospital Encounter [facility] Medical [facility] - Rheumatology [address] [place] [address] Gloria Smith MD [facility] [place] [address] Discharge Disposition: Home or Self [...] Sahu RN - 10/19/2020 2:40 PM CDT [place] Rheumatology Post Infusion instructions [...] through Sunday 9-5 call the office at [phone] After hours or on the weekend call the exchange at [phone] If you have had lab work done [...] 1 (one) tablet by mouth at bedtime cczwlpdxvhd-gqog-urp ysorb, PF, 0.5-1-0.5 % SOLN Instill 1 [...] - 10/19/2020 2:38 PM CDT JOSE Deng [id number] 10/19/2020 Diagnosis: Rheumatoid arthritis without rheumatoid factor, [...] Contact Info) Description 06/03/2024 1:00 PM FLIGHT MANAGER Appointment [facility] - Rheumatology [address] [place] [address] 06/03/2024 2:00 PM FLIGHT MANAGER Office Visit [facility] - Rheumatology [address] [place] [address] Gloria Smith MD [address] [place] [phone] documented as of this encounter Visit [...] documented in this encounter Care Teams Home Specialist Relationship Specialty Start Date End Date Tomas Hyman MD [address] [place] [address] PCP - General Family Medicine 09/05/18 Isidro Heredia MD Rheumatology 02/09/11 documented as of this encounter
--- OUTSIDE RECORDS SUMMARY | 2024-05-10 18:44 | XMS_ITS | Encounter Summary ---
Author Organization [facility] Address [address] [facility] [place] [address] Care Team Providers Care Launch Commander [employer] Police Name Role Phone Isidro Heredia MD Unavailable [phone] Tomas Hyman MD Primary Care Provider [phone] Reason for Visit * Treatment (Routine) - Closed Specialty Diagnoses / Procedures Referred By Lawrence shah Referred To Contact Infusion Therapy Nurse Diagnoses Rheumatoid arthritis without rheumatoid factor, multiple sites (HCC) Procedures ID GOLIMUMAB FOR IV USE 1MG Gloria Smith MD [address] [place] [address] [address] Referral ID Status Reason Start Date Expiration Date Visits Re quested Visits Authorized [id number] Closed 10/19/2020 04/29/2021 1 8 Encounter Details Date Type Department Care Team (Late st Contact Info) Description 12/14/2020 1:00 PM CDT - 12/14/2020 11:59 PM CDT Hospital Encounter [facility] Medical [facility] - Rheumatology [address] [place] [address] Gloria Smith MD [address] [place] [address] Discharge Disposition: Home or Self [...] Sahu RN - 12/14/2020 1:42 PM CDT [place] Rheumatology Post Infusion instructions [...] through Sunday 9-5 call the office at [phone] After hours or on the weekend call the exchange at [phone] If you have had lab work done [...] 1 (one) tablet by mouth at bedtime tcmypweonys-dsok-ivq ysorb, PF, 0.5-1-0.5 % SOLN Instill 1 [...] - 12/14/2020 1:38 PM CDT JOSE Deng [id number] 12/14/2020 Diagnosis: Rheumatoid arthritis without rheumatoid factor, [...] st Contact Info) Description 06/03/2024 1:00 PM COLLECTOR OF AQUARIUM SPECIMENS Appointment [facility] - Rheumatology [address] [place] [address] [phone] 06/03/2024 2:00 PM COLLECTOR OF AQUARIUM SPECIMENS Office Visit [facility] - Rheumatology [address] [place] [address] Gloria Smith MD [address] [place] [phone] documented as of this encounter Visit [...] mL/hr documented in this encounter Care Teams Launch Commander [employer] Relationship Specialty Start Date End Date Tomas Hyman MD [address] [facility] [address] [place] [address] PCP - General Family Medicine 09/05/18 Isidro Heredia MD Rheumatology 02/09/11 documented as of this encounter
--- OUTSIDE RECORDS SUMMARY | 2024-05-10 18:44 | XMS_ITS | Encounter Summary ---
Author Organization [facility] Address [address] [facility] [place] [address] Care Team Providers Care Revenue Investigator Name Role Phone Isidro Heredia MD Unavailable [phone] Tomas Hyman MD Primary Care Provider [phone] Reason for Visit * Reason Comments Follow-up Encounter Details Date Type Department Care Team (Late st Contact Info) Description 10/19/2020 2:40 PM CDT Office Visit [facility] - Rheumatology [address] [place] [address] Gloria Smith MD [address] [place] [phone] Rheumatoid arthritis of multiple sites with [...] bone density scan - took alendronate from [id number]. documented in this encounter Plan of Treatment Upcoming Encounters Date Type Department Care Team (Late st Contact Info) Description 06/03/2024 1:00 PM DRY MAN Appointment [facility] - Rheumatology [address] [place] [address] [phone] 06/03/2024 2:00 PM DRY MAN Office Visit [facility] - Rheumatology [address] [place] [address] Gloria Smith MD [address] [place] [phone] documented as of this encounter Procedures Procedure [...] Resulting Agency Comment Lab Testing performed at: [address] ?? [facility] [id number] Gloria Smith MD LAB - CHEMISTRY CALEBE VAN [facility] INSURANCE BILL [address] [place] [address] * CBC WITH DIFFERENTIAL (10/19/2020 3:40 PM CDT) [facility] WBC 9.5 4.4 - 10.7 x10E9/L [facility] [...] x10E9/L [facility] INSURANCE BILL Comment:MPV [place] BLOOD ([facility]) 1 1.3 fl 9.4-12.9 Granulocytes % 49.7 [...] Resulting Agency Comment Lab Testing performed at: [facility] [address] [address] ?? [facility] [id number] Gloria Smith MD LAB - HEMATOLOGY ORD ERABLES [facility] INSURANCE BILL [address] [place] [address] documented in this encounter Visit Diagnoses Diagnosis Rheumatoid arthritis of multiple sites with negative rheumatoid factor (HCC)- Primary documented in this encounter Care Teams Revenue Investigator Relationship Specialty Start Date End Date Tomas Hyman MD [address] [place] [phone] PCP - General Family Medicine 09/05/18 Isidro Heredia MD Rheumatology 02/09/11 documented as of this encounter
--- OUTSIDE RECORDS SUMMARY | 2024-05-10 18:44 | XMS_ITS | Encounter Summary ---
Author Organization [facility] Address [address] [facility] [place] [address] Care Team Providers Care Industrial Chemicals Supervisor Name Role Phone Isidro Heredia MD Unavailable [phone] Tomas Hyman MD Primary Care Provider [phone] Reason for Visit * Treatment (Routine) - Closed Specialty Diagnoses / Procedures Referred By Lawrence shah Referred To Contact Infusion Therapy Nurse Diagnoses Rheumatoid arthritis without rheumatoid factor, multiple sites (HCC) Procedures [place] GOLIMUMAB FOR IV USE 1MG Gloria Smith MD [address] [place] [address] [address] Referral ID Status Reason Start Date Expiration Date Visits Re quested Visits Authorized [id number] Closed 10/19/2020 04/29/2021 1 8 Encounter Details Date Type Department Care Team (Late st Contact Info) Description 02/08/2021 1:51 PM CDT - 02/08/2021 11:59 PM CDT Hospital Encounter [facility] Medical [facility] - Rheumatology [address] [place] [address] Gloria Smith MD [address] [place] [address] Discharge Disposition: Home or Self [...] Sahu RN - 02/08/2021 2:21 PM CDT [place] Rheumatology Post Infusion instructions [...] through Sunday 9-5 call the office at [phone] After hours or on the weekend call the exchange at [phone] If you have had lab work done [...] 1 (one) tablet by mouth at bedtime eplsnwnyntr-vpjv-vs lysorb, PF, 0.5-1-0.5 % SOLN Instill 1 [...] - 02/08/2021 2:19 PM CDT JOSE Deng [id number] 02/08/2021 Diagnosis: Rheumatoid arthritis without rheumatoid factor, [...] st Contact Info) Description 06/03/2024 1:00 PM SANDWICH MACHINE OPERATOR Appointment [facility] - Rheumatology [address] [place] [address] 06/03/2024 2:00 PM SANDWICH MACHINE OPERATOR Office Visit [facility] - Rheumatology [address] [place] [address] Gloria Smith MD [address] [place] [phone] documented as of this encounter Visit [...] mL/hr documented in this encounter Care Teams Industrial Chemicals Supervisor Relationship Specialty Start Date End Date Tomas Hyman MD [address] [facility] [address] [place] [address] PCP - General Family Medicine 09/05/18 Isidro Heredia MD Rheumatology 02/09/11 documented as of this encounter
--- OUTSIDE RECORDS SUMMARY | 2024-05-10 18:44 | XMS_ITS | Encounter Summary ---
Author Organization [facility] Address [address] [facility] [place] [address] Care Team Providers Care Advanced Practice Rn Name Role Phone Isidro Heredia MD Unavailable [phone] Tomas Hyman MD Primary Care Provider [phone] Encounter Details Date Type Department Care Team [...] COVID-19? No / Unsure 03/05/2020 11:52 AM TIE FASTENER documented as of this encounter Plan of Treatment Upcoming Encounters Date Type Department Care Team (Late st Contact Info) Description 06/03/2024 1:00 PM TIE FASTENER Appointment [facility] - Rheumatology [address] [place] [address] 06/03/2024 2:00 PM TIE FASTENER Office Visit [facility] - Rheumatology [address] [place] [address] Gloria Smith MD [address] [place] [phone] documented as of this encounter Visit Diagnoses Not on filedocumented in this encounter Care Teams Advanced Practice Rn Relationship Specialty Start Date End Date Tomas Hyman MD [address] [facility] [address] [place] [address] PCP - General Family Medicine 09/05/18 Isidro Heredia MD Rheumatology 02/09/11 documented as of this encounter
--- OUTSIDE RECORDS SUMMARY | 2024-05-10 18:44 | XMS_ITS | Encounter Summary ---
Author Organization [facility] Address [address] [facility] [place] [address] Care Team Providers Care Python Developer Name Role Phone Isidro Heredia MD Unavailable [phone] Tomas Hyman MD Primary Care Provider [phone] Encounter Details Date Type Department Care Team (Late st Contact Info) Description 06/29/2020 1:00 PM SEMICONDUCTOR PACKAGE SYMBOL STAMPER Office Visit [facility] Medical [facility] - Rheumatology [address] [place] [address] Gloria Smith MD [address] [place] [phone] Rheumatoid arthritis of multiple sites with [...] COVID-19? No / Unsure 06/29/2020 11:44 AM SEMICONDUCTOR PACKAGE SYMBOL STAMPER documented as of this encounter Last Filed Vital Signs Vital Sign Reading Time Taken Comments Blood Pressure 130/74 06/29/2020 12:56 PM SEMICONDUCTOR PACKAGE SYMBOL STAMPER Pulse 79 06/29/2020 12:56 PM SEMICONDUCTOR PACKAGE SYMBOL STAMPER Temperature 36.6 ??C (97.9 ??F) 06/29/2020 12:[address] Respiratory Rate - - Oxygen Saturation - - Inhaled Oxygen Concentration - - Weight 105.7 kg (233 lb) 06/29/2020 12:56 PM SEMICONDUCTOR PACKAGE SYMBOL STAMPER Height 177.8 cm (5' 10 ) 06/29/2020 12:56 PM SEMICONDUCTOR PACKAGE SYMBOL STAMPER Body Mass Index 33.43 06/29/2020 12:56 PM SEMICONDUCTOR PACKAGE SYMBOL STAMPER documented in this encounter Progress Notes * [...] bone density scan - took alendronate from [id number]. CONDUCTOR PACKAGE SYMBOL STAMPER documented in this encounter Plan of Treatment Upcoming Encounters Date Type Department Care Team (Late st Contact Info) Description 06/03/2024 1:00 PM SEMICONDUCTOR PACKAGE SYMBOL STAMPER Appointment [facility] - Rheumatology [address] [place] [address] [phone] 06/03/2024 2:00 PM SEMICONDUCTOR PACKAGE SYMBOL STAMPER Office Visit [facility] - Rheumatology [address] [place] [address] Gloria Smith MD [address] [place] [phone] documented as of this encounter Procedures Procedure Name Priority Date/Time Associated Diagnosis Comments C-REACTIVE PROTEIN Routine 06/29/2020 2: 10 PM SEMICONDUCTOR PACKAGE SYMBOL STAMPER Rheumatoid arthritis of multiple sites with negative rheumatoid factor (HCC) ERYTHROCYTE SEDIMENTATION RATE Routine 06/29/2020 2:10 PM SEMICONDUCTOR PACKAGE SYMBOL STAMPER Rheumatoid arthritis of multiple sites with negative rheumatoid factor (HCC) CBC W AUTO DIFFERENTIAL Routine 06/29/2020 2:10 PM SEMICONDUCTOR PACKAGE SYMBOL STAMPER Rheumatoid arthritis of multiple sites with negative rheumatoid factor (HCC) COMPREHENSIVE METABOLIC PANEL Routine 06/29/2020 2:10 PM SEMICONDUCTOR PACKAGE SYMBOL STAMPER Rheumatoid arthritis of multiple sites with negative rheumatoid factor (HCC) documented in this encounter Results * C-REACTIVE PROTEIN (06/29/2020 2:10 PM SEMICONDUCTOR PACKAGE SYMBOL STAMPER) C-Reactive Protein <0.20 <=0.50 mg/dL [facility] INSURANCE BILL Blood BLOOD SPECIMEN / Unknown 06/29/2020 2:10 PM SEMICONDUCTOR PACKAGE SYMBOL STAMPER 06/29/2020 Narrative Resulting Agency Comment Lab Testing performed at: [place] [address] ?? [facility] [id number] Gloria Smith MD LAB - CHEMISTRY ORDE RABLES Performing Organization Address City/[facility]/ZIP Co de Phone Number [facility] INSURANCE BILL [address] [place] [address] * ERYTHROCYTE SEDIMENTATION RATE (06/29/2020 2:10 PM SEMICONDUCTOR PACKAGE SYMBOL STAMPER) Erythrocyte Sedimentation Rate Westergren 13 0 - 20 MM/HR [facility] INSURANCE BILL Blood BLOOD SPECIMEN / Unknown 06/29/2020 2:10 PM SEMICONDUCTOR PACKAGE SYMBOL STAMPER 06/29/2020 Narrative Resulting Agency Comment Lab Testing performed at: [address] ?? [facility] [id number] Gloria Smith MD LAB - HEMATOLOGY ORD ERABLES Performing Organization Address City/[facility] Co de Phone Number [facility] INSURANCE BILL [address] [place] [address] * COMPREHENSIVE METABOLIC PANEL (06/29/2020 2:10 PM SEMICONDUCTOR PACKAGE SYMBOL STAMPER) Glucose 103 70 - 105 mg/dL [facility] [...] BLOOD SPECIMEN / Unknown 06/29/2020 2:10 PM SEMICONDUCTOR PACKAGE SYMBOL STAMPER 06/29/2020 Narrative Resulting Agency Comment Lab Testing performed at: [facility] [address] [facility] ?? [facility] [id number] Gloria Smith MD LAB - CHEMISTRY MARII ARAUJO [facility] INSURANCE BILL [address] [place] [address] * (ABNORMAL) CBC WITH DIFFERENTIAL (06/29/2020 2:10 PM SEMICONDUCTOR PACKAGE SYMBOL STAMPER) WBC 8.6 4.4 - 10.7 x10E9/L [facility] [...] [facility] INSURANCE BILL Comment:MPV [place] BLOOD ([facility]) 1 1.4 fl 9.4-12.9 Granulocytes % 43.6(L) [...] BLOOD SPECIMEN / Unknown 06/29/2020 2:10 PM SEMICONDUCTOR PACKAGE SYMBOL STAMPER 06/29/2020 Narrative Resulting Agency Comment Lab Testing performed at: [address] ?? [facility] [id number] Gloria Smith MD LAB - HEMATOLOGY ORD ERABLES [facility] INSURANCE BILL [address] [place] [address] documented in this encounter Visit Diagnoses Diagnosis Rheumatoid arthritis of multiple sites with negative rheumatoid factor (HCC)- Primary documented in this encounter Care Teams Python Developer Relationship Specialty Start Date End Date Tomas Hyman MD [address] [place] [address] PCP - General Family Medicine 09/05/18 Isidro Heredia MD Rheumatology 02/09/11 documented as of this encounter
--- OUTSIDE RECORDS SUMMARY | 2024-05-10 18:44 | XMS_ITS | Encounter Summary ---
Author Organization [facility] Address [address] [place] [address] Care Team Providers Care Restoration Silversmith Name Role Phone Isidro Heredia MD Unavailable [phone] Tomas Hyman MD Primary Care Provider [phone] Encounter Details Date Type Department Care Team [...] st Contact Info) Description 06/03/2024 1:00 PM EXPLOSIVE OPERATOR SUPERVISOR Appointment [facility] - Rheumatology [address] [place] [address] 06/03/2024 2:00 PM EXPLOSIVE OPERATOR SUPERVISOR Office Visit [facility] - Rheumatology [address] [place] [address] Gloria Smith MD [address] [place] [phone] documented as of this encounter Visit Diagnoses Not on filedocumented in this encounter Care Teams Restoration Silversmith Relationship Specialty Start Date End Date Tomas Hyman MD [address] [facility] [address] [place] [address] PCP - General Family Medicine 09/05/18 Isidro Heredia MD Rheumatology 02/09/11 documented as of this encounter
--- OUTSIDE RECORDS SUMMARY | 2024-05-10 18:44 | XMS_ITS | Encounter Summary ---
Author Organization [facility] Address [address] [facility] [place] [address] Care Team Providers Care Offset Plate Preparation Supervisor Name Role Phone Isidro Heredia MD Unavailable [phone] Tomas Hyman MD Primary Care Provider Reason for Visit * Treatment (Routine) - Closed Specialty Diagnoses / Procedures Referred By Lawrence shah Referred To Contact Infusion Therapy Nurse Diagnoses Rheumatoid arthritis without rheumatoid factor, multiple sites (HCC) Procedures [place] INFLIXIMAB INJECTION Gloria Smith MD [address] [place] [address] [phone] Referral ID Status Reason Start Date Expiration Date Visits Re quested Visits Authorized [id number] Closed 05/09/2019 04/29/2020 1 12 Encounter Details Date Type Department Care Team (Late st Contact Info) Description 02/06/2020 11:33 AM CDT - 02/06/2020 1:40 PM CDT Hospital Encounter [facility] - Rheumatology [address] [place] [address] Gloria Smith MD [facility] [place] [address] Discharge Disposition: Home or Self [...] Sahu RN - 02/06/2020 11:55 AM CDT [place] Rheumatology Post Infusion instructions You [...] through Sunday 9-5 call the office at [phone] After hours or on the weekend call the exchange at [phone] If you have had lab work done [...] 1 (one) tablet by mouth at bedtime irulhcrbhun-ntre-zz lysorb, PF, 0.5-1-0.5 % SOLN Instill 1 [...] - 02/06/2020 12:00 PM CDT JOSE Deng [id number] 02/06/2020 Diagnosis: Rheumatoid arthritis without rheumatoid factor, [...] Contact Info) Description 06/03/2024 1:00 PM TAKE DOWN INSPECTOR Appointment [facility] - Rheumatology [address] [place] [address] [phone] 06/03/2024 2:00 PM TAKE DOWN INSPECTOR Office Visit [facility] - Rheumatology [address] [place] [address] Gloria Smith MD [address] [place] [phone] documented as of this encounter Visit Diagnoses [...] received three standard infliximab infusions at [facility], -Patient has no history of infusion-related hypersensitivity [...] mL/hr documented in this encounter Care Teams Offset Plate Preparation Supervisor Relationship Specialty Start Date End Date Tomas Hyman MD [address] [place] [address] PCP - General Family Medicine 09/05/18 Isidro Heredia MD Rheumatology 02/09/11 documented as of this encounter
--- OUTSIDE RECORDS SUMMARY | 2024-05-10 18:44 | XMS_ITS | Encounter Summary ---
Author Organization [facility] Address [address] [place] [address] Care Team Providers Care Bricklayer Name Role Phone Isidro Heredia MD Unavailable [phone] Tomas Hyman MD Primary Care Provider [phone] Reason for Visit * Treatment (Routine) - Closed Specialty Diagnoses / Procedures Referred By Contact Referred To Contact Infusion Therapy Nurse / Rheumatology Diagnoses Rheumatoid arthritis without rheumatoid factor, multiple sites (HCC) Procedures [place] INFLIXIMAB INJECTION Gloria Smith MD [address] [place] [address] [facility] [address] [address] Referral ID Status Reason Start Date Expiration Date Visits Re quested Visits Authorized [id number] Closed 05/04/2020 04/29/2021 12 12 Encounter Details Date Type Department Care Team (Late st Contact Info) Description 08/24/2020 10:53 AM CDT - 08/24/2020 11:59 PM CDT Hospital Encounter [facility] - Rheumatology [address] [place] [address] Gloria Smith MD [facility] [place] [address] Discharge Disposition: Home or Self [...] Body Mass Index 34.52 06/29/2020 12:56 PM ART SUPERVISOR documented in this encounter Discharge Instructions * Discharge Instructions* Jody Sahu RN - 08/24/2020 11:10 AM CDT [place] Rheumatology Post Infusion instructions You [...] through Sunday 9-5 call the office at [phone] After hours or on the weekend call the exchange at [phone] If you have had lab work done [...] 1 (one) tablet by mouth at bedtime wishtheqxag-taqd-lzz ysorb, PF, 0.5-1-0.5 % SOLN Instill 1 [...] - 08/24/2020 11:34 AM CDT JOSE Deng [id number] 08/24/2020 Diagnosis: Rheumatoid arthritis without rheumatoid factor, multiple sites [M06.09]. Pt denies symptoms of infection or antibiotic use, no open wounds, or recent surgery, or plans for surgery in the next couple of weeks. Pt is aware that we use the 0-10 pain scale to assess discomfort. 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 front end drupal developer pt signs consent for treatment for [...] Contact Info) Description 06/03/2024 1:00 PM ART SUPERVISOR Appointment [facility] - Rheumatology [address] [place] [address] [phone] 06/03/2024 2:00 PM ART SUPERVISOR Office Visit [facility] - Rheumatology [address] [place] [address] Gloria Smith MD [address] [place] [phone] documented as of this encounter Visit Diagnoses [...] mL/hr documented in this encounter Care Teams Bricklayer Relationship Specialty Start Date End Date Tomas Hyman MD [address] [place] [address] PCP - General Family Medicine 09/05/18 Isidro Heredia MD Rheumatology 02/09/11 documented as of this encounter
--- OUTSIDE RECORDS SUMMARY | 2024-05-10 18:44 | XMS_ITS | Encounter Summary ---
Author Organization [facility] Address [address] [facility] [address] Care Team Providers Care Fisher Gill Net Name Role Phone Isidro Heredia MD Unavailable [phone] Tomas Hyman MD Primary Care Provider [phone] Reason for Visit * Treatment (Routine) - Closed Specialty Diagnoses / Procedures Referred By Contact Referred To Contact Infusion Therapy Nurse / Rheumatology Diagnoses Rheumatoid arthritis without rheumatoid factor, multiple sites (HCC) Procedures [place] INFLIXIMAB INJECTION Gloria Smith MD [address] [place] [address] [facility] [address] [address] Referral ID Status Reason Start Date Expiration Date Visits Re quested Visits Authorized [id number] Closed 05/04/2020 04/29/2021 12 12 Encounter Details Date Type Department Care Team (Late st Contact Info) Description 07/27/2020 11:35 AM CDT - 07/27/2020 11:59 PM CDT Hospital Encounter [facility] Medical [facility] - Rheumatology [address] [place] [address] Gloria Smith MD [facility] [place] [address] Discharge Disposition: Home or [...] Body Mass Index 33.86 06/29/2020 12:56 PM AWNING INSTALLER documented in this encounter Discharge Instructions * Discharge Instructions* Jody Sahu RN - 07/27/2020 12:48 PM CDT [place] Rheumatology Post Infusion instructions [...] through Sunday 9-5 call the office at [phone] After hours or on the weekend call the exchange at [phone] If you have had lab work done [...] 1 (one) tablet by mouth at bedtime kjeobkicrgl-faku-kkn ysorb, PF, 0.5-1-0.5 % SOLN Instill 1 [...] - 07/27/2020 12:49 PM CDT JOSE Deng [id number] 07/27/2020 Diagnosis: Rheumatoid arthritis without rheumatoid factor, [...] st Contact Info) Description 06/03/2024 1:00 PM AWNING INSTALLER Appointment [facility] - Rheumatology [address] [place] [address] 06/03/2024 2:00 PM AWNING INSTALLER Office Visit [facility] - Rheumatology [address] [place] [address] Gloria Smith MD [address] [place] [phone] documented as of this encounter Visit [...] documented in this encounter Care Teams Fisher Gill Net Relationship Specialty Start Date End Date Tomas Hyman MD [address] [address] [address] [place] [address] PCP - General Family Medicine 09/05/18 Isidro Heredia MD Rheumatology 02/09/11 documented as of this encounter
--- OUTSIDE RECORDS SUMMARY | 2024-05-10 18:44 | XMS_ITS | Encounter Summary ---
Author Organization [facility] Address [address] [facility] [place] [address] Care Team Providers Care Fence Erector Supervisor Name Role Phone Isidro Heredia MD Unavailable [phone] Tomas Hyman MD Primary Care Provider Encounter Details Date Type Department Care Team (Late Contact Info) Description 11/11/2020 Orders Only [facility] - Rheumatology [address] [facility], [address] [place] [address] Gloria Smith MD [address] [place] [address] Social History Tobacco Use Types [...] (Late Contact Info) Description 06/03/2024 1:00 PM JUVENILE PROBATION OFFICER Appointment [facility] - Rheumatology [address] [place] [address] 06/03/2024 2:00 PM JUVENILE PROBATION OFFICER Office Visit [facility] - Rheumatology [address] [place] [address] Gloria Smith MD [address] [place] [address] documented as of this encounter Visit Diagnoses Not on filedocumented in this encounter Care Teams Fence Erector Supervisor Relationship Specialty Start Date End Date Tomas Hyman MD [address] [place] [address] PCP - General Family Medicine 09/05/18 Isidro Heredia MD Rheumatology 02/09/11 documented as of this encounter
--- OUTSIDE RECORDS SUMMARY | 2024-05-10 18:44 | XMS_ITS | Encounter Summary ---
Author Organization [facility] Address [address] [place] [address] Care Team Providers Care Medical Management Specialist Name Role Phone Isidro Heredia MD Unavailable [phone] Tomas Hyman MD Primary Care Provider [phone] Reason for Visit * Reason Onset Date Comments Question 09/13/2020 Encounter Details Date Type Department Care Team (Late st Contact Info) Description 09/13/2020 Telephone [facility] Medical [facility] - Rheumatology [address] [place] [address] Gloria Smith MD [address] [place] [phone] Question Social History Tobacco Use Types [...] st Contact Info) Description 06/03/2024 1:00 PM CLOSING AGENT Appointment [facility] - Rheumatology [address] [place] [address] [phone] 06/03/2024 2:00 PM CLOSING AGENT Office Visit [facility] - Rheumatology [address] [place] [address] [phone] Gloria Smith MD [address] [place] [phone] documented as of this encounter Visit Diagnoses Not on filedocumented in this encounter Care Teams Medical Management Specialist Relationship Specialty Start Date End Date Tomas Hyman MD [address] [facility] [address] [place] [address] PCP - General Family Medicine 09/05/18 Isidro Heredia MD Rheumatology 02/09/11 documented as of this encounter
--- OUTSIDE RECORDS SUMMARY | 2024-05-10 18:44 | XMS_ITS | Encounter Summary ---
Author Organization [facility] Address [address] [facility] [place] [address] Care Team Providers Care Green End Department Supervisor Name Role Phone Isidro Heredia MD Unavailable [phone] Tomas Hyman MD Primary Care Provider [phone] Reason for Visit * Reason Onset Date Comments MEDICATION REFILL 04/05/2020 MEDICATION REFILL 04/12/2020 Encounter Details Date Type Department Care Team (Late Contact Info) Description 04/05/2020 Refill [facility] - Rheumatology [address] [place] [address] Mycsoheilat, Generic Provider MEDICATION REFILL; MEDICATION [...] COVID-19? No / Unsure 04/09/2020 1:56 PM EQUIPMENT OPERATOR/LABORER documented as of this encounter Plan of Treatment Upcoming Encounters Date Type Department Care Team (Late Contact Info) Description 06/03/2024 1:00 PM EQUIPMENT OPERATOR/LABORER Appointment [facility] Rheumatology [address] [place] [address] 06/03/2024 2:00 PM EQUIPMENT OPERATOR/LABORER Office Visit [facility] - Rheumatology [address] [place] [address] Gloria Smith MD [facility] [place] [phone] documented as of this encounter Visit Diagnoses Not on filedocumented in this encounter Care Teams Green End Department Supervisor Relationship Specialty Start Date End Date Tomas Hyman MD [address] [facility] [address] [place] [address] PCP - General Family Medicine 09/05/18 Isidro Heredia MD Rheumatology 02/09/11 documented as of this encounter
--- OUTSIDE RECORDS SUMMARY | 2024-05-10 18:44 | XMS_ITS | Encounter Summary ---
Author Organization [facility] Address [address] [facility] [place] [address] Care Team Providers Care Manager Discovery Name Role Phone Isidro Heredia MD Unavailable [phone] Tomas Hyman MD Primary Care Provider [phone] Encounter Details Date Type Department Care Team (Late Contact Info) Description 05/10/2020 10:30 AM MODULAR SET CREW MEMBER Ancillary Procedure [facility] Orthopedics [address] [place] [phone] Nini Han MD [address] [place] [phone] Hand pain, right Social History Tobacco [...] COVID-19? No / Unsure 05/04/2020 2:08 PM MODULAR SET CREW MEMBER documented as of this encounter Plan of Treatment Upcoming Encounters Date Type Department Care Team (Late Contact Info) Description 06/03/2024 1:00 PM MODULAR SET CREW MEMBER Appointment [facility] Medical [facility] - Rheumatology [address] [place] [address] 06/03/2024 2:00 PM MODULAR SET CREW MEMBER Office Visit [facility] - Rheumatology [address] [place] [address] Gloria Smith MD [address] [place] [address] [place] [phone] documented as of this encounter Procedures Procedure Name Priority Date/Time Associated Diagnosis Comments XR HAND RIGHT 3VW OR MORE Routine 05/10/2020 10:37 AM MODULAR SET CREW MEMBER Hand pain, right documented in this encounter Results * XR HAND RIGHT 3VW OR MORE (05/10/2020 10:37 AM MODULAR SET CREW MEMBER) Anatomical Region Laterality Modality Wrist / Hand Computed Radiogr aphy Narrative 05/10/2020 10:38 AM MODULAR SET CREW MEMBER Mora Delgado M, RT(R) ? 05/10/2020 11:39 AM See chart for xray results Nini Han MD DIAGNOSTIC IMAGING ORDERABLES documented in this encounter Visit Diagnoses Diagnosis Hand pain, right Pain in limb documented in this encounter Care Teams Manager Discovery Relationship Specialty Start Date End Date Tomas Hyman MD [address] [facility] [address] [place] [address] PCP - General Family Medicine 09/05/18 Isidro Heredia MD Rheumatology 02/09/11 documented as of this encounter
--- OUTSIDE RECORDS SUMMARY | 2024-05-10 18:44 | XMS_ITS | Encounter Summary ---
Author Organization [facility] Address [address] [facility] [place] [place] [address] Care Team Providers Care Hoop Driving Machine Operator Name Role Phone Isidro Heredia MD Unavailable [phone] Tomas Hyman MD Primary Care Provider [phone] Encounter Details Date Type Department Care Team [...] st Contact Info) Description 06/03/2024 1:00 PM TRAVOGRAPH OPERATOR Appointment [facility] - Rheumatology [address] [place] [address] 06/03/2024 2:00 PM TRAVOGRAPH OPERATOR Office Visit [facility] - Rheumatology [address] [place] [address] Gloria Smith MD [address] [place] [phone] documented as of this encounter Visit Diagnoses Not on filedocumented in this encounter Care Teams Hoop Driving Machine Operator Relationship Specialty Start Date End Date Tomas Hyman MD [address] [facility] [address] [place] [address] PCP - General Family Medicine 09/05/18 Isidro Heredia MD Rheumatology 02/09/11 documented as of this encounter
--- OUTSIDE RECORDS SUMMARY | 2024-05-10 18:45 | XMS_ITS | Encounter Summary ---
Author Organization [facility] Address [address] [place] [address] Care Team Providers Care Adventure Challenge Instructor Name Role Phone Isidro Heredia MD Unavailable [phone] Tomas Hyman MD Primary Care Provider [phone] Encounter Details Date Type Department Care Team (Late Contact Info) Description 08/28/2019 Orders Only [facility] - Rheumatology [address] [place] [address] Gloria Smith MD [address] [place] [phone] Social History Tobacco Use Types Packs/Day [...] (Late Contact Info) Description 06/03/2024 1:00 PM ELECTRONIC TRAIN CONTROL TECHNICIAN Appointment [facility] - Rheumatology [address] [place] [address] 06/03/2024 2:00 PM ELECTRONIC TRAIN CONTROL TECHNICIAN Office Visit [facility] - Rheumatology [address] [place] [address] Gloria Smith MD [address] [place] [phone] documented as of this encounter Visit Diagnoses Not on filedocumented in this encounter Care Teams Adventure Challenge Instructor Relationship Specialty Start Date End Date Tomas Hyman MD [address] [facility] [address] [place] [address] PCP - General Family Medicine 09/05/18 Isidro Heredia MD Rheumatology 02/09/11 documented as of this encounter
--- OUTSIDE RECORDS SUMMARY | 2024-05-10 18:45 | XMS_ITS | Encounter Summary ---
Author Organization [facility] Address [address] [facility] [place] [address] Care Team Providers Care Project Geologist Name Role Phone Isidro Heredia MD Unavailable Tomas Hyman MD Primary Care Provider [phone] Encounter Details Date Type Department Care Team [...] st Contact Info) Description 06/03/2024 1:00 PM SCIENTIST/ENGINEER Appointment [facility] - Rheumatology [address] [place] [address] 06/03/2024 2:00 PM SCIENTIST/ENGINEER Office Visit [facility] - Rheumatology [address] [place] [address] Gloria Smith MD [address] [place] [phone] documented as of this encounter Visit Diagnoses Not on filedocumented in this encounter Care Teams Project Geologist Relationship Specialty Start Date End Date Tomas Hyman MD [address] [facility] [address] [place] [address] PCP - General Family Medicine 09/05/18 Isidro Heredia MD Rheumatology 02/09/11 documented as of this encounter
--- OUTSIDE RECORDS SUMMARY | 2024-05-10 18:45 | XMS_ITS | Encounter Summary ---
Author Organization [facility] Address [address] [facility] [place] [address] Care Team Providers Care Typing Office Worker Name Role Phone Isidro Heredia MD Unavailable Tomas Hyman MD Primary Care Provider [phone] Reason for Visit * Reason Onset Date Comments MEDICATION REFILL 10/24/2018 Encounter Details Date Type Department Care Team (Late Contact Info) Description 10/24/2018 Refill [facility] - Rheumatology [address] [place] [address] Isidro Heredia MD [address] [place] [address] MEDICATION REFILL Social History Tobacco Use [...] 06/03/2024 1:00 PM HOT PLATE PLYWOOD PRESS OFFBEARER Appointment [facility] - Rheumatology [address] [place] [address] 06/03/2024 2:00 PM HOT PLATE PLYWOOD PRESS OFFBEARER Office Visit [facility] - Rheumatology [address] [place] [address] Gloria Smith MD [address] [place] [address] documented as of this encounter Visit Diagnoses Not on filedocumented in this encounter Care Teams Typing Office Worker Relationship Specialty Start Date End Date Tomas Hyman MD [address] [place] [address] PCP - General Family Medicine 09/05/18 Isidro Heredia MD Rheumatology 02/09/11 documented as of this encounter
--- OUTSIDE RECORDS SUMMARY | 2024-05-10 18:45 | XMS_ITS | Encounter Summary ---
Author Organization [facility] Address [address] [facility] [place] [address] Care Team Providers Care Fig Washer Name Role Phone Isidro Heredia MD Unavailable [phone] Tomas Hyman MD Primary Care Provider [phone] Encounter Details Date Type Department Care Team (Late Contact Info) Description 08/29/2019 Orders Only [facility] - Rheumatology [address] [place] [address] Gloria Smith MD [address] [place] [phone] Social History Tobacco Use Types Packs/Day [...] (Late Contact Info) Description 06/03/2024 1:00 PM THREADING MACHINE FEEDER AUTOMATIC Appointment [facility] - Rheumatology [address] [place] [address] 06/03/2024 2:00 PM THREADING MACHINE FEEDER AUTOMATIC Office Visit [facility] - Rheumatology [address] [place] [address] Gloria Smith MD [address] [place] [phone] documented as of this encounter Visit Diagnoses Not on filedocumented in this encounter Care Teams Fig Washer Relationship Specialty Start Date End Date Tomas Hyman MD [address] [facility] [address] [place] [address] PCP - General Family Medicine 09/05/18 Isidro Heredia MD Rheumatology 02/09/11 documented as of this encounter
--- OUTSIDE RECORDS SUMMARY | 2024-05-10 18:45 | XMS_ITS | Encounter Summary ---
Author Organization [facility] Address [address] [facility] [address] Care Team Providers Care Brush Trimming Machine Setter Name Role Phone Isidro Heredia MD Unavailable [phone] Tomas Hyman MD Primary Care Provider [phone] Encounter Details Date Type Department Care Team [...] Contact Info) Description 06/03/2024 1:00 PM FEED RESEARCH TECHNICIAN Appointment [facility] Medical [facility] - Rheumatology [address] [place] [address] 06/03/2024 2:00 PM FEED RESEARCH TECHNICIAN Office Visit [facility] Medical [facility] - Rheumatology [address] [place] [address] Gloria Smith MD [address] [place] [phone] documented as of this encounter Visit Diagnoses Not on filedocumented in this encounter Care Teams Brush Trimming Machine Setter Relationship Specialty Start Date End Date Tomas Hyman MD [address] [place] [address] PCP - General Family Medicine 09/05/18 Isidro Heredia MD Rheumatology 02/09/11 documented as of this encounter
--- OUTSIDE RECORDS SUMMARY | 2024-05-10 18:45 | XMS_ITS | Encounter Summary ---
Author Organization [facility] Health Address [address] [facility] [place] [address] Care Team Providers Care Bark Press Operator Name Role Phone Isidro Heredia MD Unavailable [phone] Tomas Hyman MD Primary Care Provider [phone] Encounter Details Date Type Department Care Team (Latest Contact Info) Description 08/05/2019 10:45 AM CDT - 08/05/2019 11:59 PM CDT Hospital Encounter [facility] Pain Care [address] [place] [address] [place] [address] [place] [address] Discharge Disposition: Home or Self [...] RN - 08/05/2019 10:45 AM CDT [facility] Procedure Center [...] headache, or any other problems, please call [phone] or after hours callDr. Barnett at [phone] and tell them your physician's name. The exchange will alert the physician fermentation scientist. If sedation is given: No sedation given. For Your Next Visit: No additional instructions. Other Instructions: May remove band-aid in 12 Hours. Return in 3-[address] Barnett documented in this encounter Medications at Time of Discharge Medication Sig Dispensed Refills Start Date End Date atorvastatin (LIPITOR) 40 MG tablet Take 1 (one) tablet by mouth at bedtime empendwizkn-aema-ga lysorb, PF, 0.5-1-0.5 % SOLN Instill 1 [...] Patient has been attending physical therapy at [place], [place] since 07/02/2019 without sustained pain releif. [...] with plain water Orally every 7 days. [place] 5-325 MG Tablet 1 tablet as needed [...] acute distress, well developed, well nourished categoryPropId= [id number] examid= [id number] GENERALAPPEARANCE: in no acute distress, well developed, well nourished. NC/AT, Symmetrical categoryPropId= [id number] examid= [id number] HEAD: NC/AT, Symmetrical. PERRLA, EOMI, Visual keen intact categoryPropId= [id number] examid= [id number] EYES: PERRLA, EOMI, Visual keen intact. Hearing intact categoryPropId= [id number] examid= [id number] EARS: Hearing intact. Supple, non-tender, no thyroidomegaly categoryPropId= [id number] examid= [id number] NECK/THYROID: Supple, non-tender, no thyroidomegaly. Lungs clear w/o wheezes, no rales or rhonchi categoryPropId= [id number] examid= [id number] RESPIRATORY: Lungs clear w/o wheezes, no rales or rhonchi. regular rate & rhythm, no murmurs categoryPropId= [id number] examid= [id number] HEART: regular rate & rhythm, no murmurs. [...] cm Diameter Left calf: 43 cm categoryPropId= [id number] examid= [id number] MUSCULOSKELETAL: ambulates with slow antalgic gait with [...] Skin w/o lesions, moist, well perfused categoryPropId= [id number] examid= [id number] SKIN: Skin w/o lesions, moist, well perfused. Patient alert & oriented, appropriate mood & affect, speech normal, tone normal, affect appropriate, NAD. Patient denies suicidal ideation. Patient denies homicidal ideation. categoryPropId= [id number] examid= [id number] PSYCH: Patient alert & oriented, appropriate mood & affect, speech normal, tone normal, affect appropriate, NAD. Patient denies suicidal ideation. Patient denieshomicidal ideation.. Active bowel sounds, soft, no mass or organomegaly categoryPropId= [id number] examid= [id number] GASTROINTESTINAL: Active bowel sounds, soft, no mass [...] telehealth vs in office follow up with NETBACKUP ADMINISTRATOR s/p DOI) documented in this encounter OR [...] DRAINS: None. COMPLICATIONS: None. CONDITION POSTPROCEDURE: Stable. KNOWLEDGE ARCHITECT: None. INDICATIONS: Please refer to H/P for [...] on how to reach the clinic or fermentation scientist physician at anytime for questions or complaints. documented in this encounter Plan of Treatment Upcoming Encounters Date Type Department Care Team (Late st Contact Info) Description 06/03/2024 1:00 PM CERTIFIED TUMOR REGISTRAR Appointment [facility] - Rheumatology [address] [place] [address] 06/03/2024 2:00 PM CERTIFIED TUMOR REGISTRAR Office Visit [facility] - Rheumatology [address] [place] [address] [phone] Gloria Smith MD [address] [place] [phone] Pending Results Name Type Priority Associated Diagnoses [...] comments documented in this encounter Care Teams Bark Press Operator Relationship Specialty Start Date End Date Tomas Hyman MD [address] [facility] [address] [place] [address] PCP - General Family Medicine 09/05/18 Isidro Heredia MD Rheumatology 02/09/11 documented as of this encounter
--- OUTSIDE RECORDS SUMMARY | 2024-05-10 18:45 | XMS_ITS | Encounter Summary ---
Author Organization [facility] Address [address] [facility] [place] [address] Care Team Providers Care Cottrell Operator Name Role Phone Isidro Heredia MD Unavailable Encounter Details Date Type Department Care Team (Late st Contact Info) Description 05/24/2018 Orders Only [facility] - Rheumatology [address] [place] [address] Isidro Heredia MD [address] [place] [address] Encounter for long-term (current) use [...] st Contact Info) Description 06/03/2024 1:00 PM STAFFING ANALYST Appointment [facility] - Rheumatology [address] [place] [address] 06/03/2024 2:00 PM STAFFING ANALYST Office Visit [facility] - Rheumatology [address] [place] [address] Gloria Smith MD [address] [place] [phone] documented as of this encounter Visit Diagnoses Diagnosis Encounter for long-term (current) use of medications Encounter for long-term (current) use of other medications documented in this encounter Care Teams Cottrell Operator Relationship Specialty Start Date End Date Isidro Heredia MD Rheumatology 02/09/11 documented as of this encounter
--- OUTSIDE RECORDS SUMMARY | 2024-05-10 18:45 | XMS_ITS | Encounter Summary ---
Author Organization [facility] Address [address] [place] [address] Care Team Providers Care Bed And Breakfast Cook Name Role Phone Isidro Heredia MD Unavailable [phone] Tomas Hyman MD Primary Care Provider [phone] Reason for Visit * Reason Comments Establish Care pre lavon Encounter Details Date Type Department Care Team (Late st Contact Info) Description 01/08/2019 1:40 PM CDT Office Visit [facility] - Rheumatology [address] [place] [address] Gloria Smith MD [address] [place] [phone] Rheumatoid arthritis of multiple sites with [...] Contact Info) Description 06/03/2024 1:00 PM HEEL COVER SPLITTER Appointment [facility] - Rheumatology [address] [place] [address] [phone] 06/03/2024 2:00 PM HEEL COVER SPLITTER Office Visit [facility] - Rheumatology [address] [place] [address] Gloria Smith MD [address] [place] [phone] documented as of this encounter Visit Diagnoses Diagnosis Rheumatoid arthritis of 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
--- OUTSIDE RECORDS SUMMARY | 2024-05-10 18:45 | XMS_ITS | Encounter Summary ---
Author Organization [facility] Address [address] [place] [address] Care Team Providers Care High Lighter Name Role Phone Isidro Heredia MD Unavailable [phone] Tomas Hyman MD Primary Care Provider [phone] Encounter Details Date Type Department Care Team [...] st Contact Info) Description 06/03/2024 1:00 PM TEMPERATURE REGULATOR PYROMETER Appointment [facility] - Rheumatology [address] [place] [address] 06/03/2024 2:00 PM TEMPERATURE REGULATOR PYROMETER Office Visit [facility] - Rheumatology [address] [place] [address] Gloria Smith MD [address] [place] [phone] documented as of this encounter Visit Diagnoses Not on filedocumented in this encounter Care Teams High Lighter Relationship Specialty Start Date End Date Tomas Hyman MD [address] [facility] [address] [place] [address] PCP - General Family Medicine 09/05/18 Isidro Heredia MD Rheumatology 02/09/11 documented as of this encounter
--- OUTSIDE RECORDS SUMMARY | 2024-05-10 18:45 | XMS_ITS | Encounter Summary ---
Author Organization [facility] Address [address] [facility] [place] [address] Care Team Providers Care Vine Pruner Name Role Phone Isidro Heredia MD Unavailable [phone] Reason for Visit * Reason Comments Arthritis follow up Encounter Details Date Type Department Care Team (Late st Contact Info) Description 07/11/2018 10:15 AM CDT Office Visit [facility] - Rheumatology [address] [place] [address] [phone] Isidro Heredia MD [address] [place] [address] Abnormal LFTs (Primary Dx); Chronic right-sided [...] 2 times daily 180 capsule 3 ??? Anztxpnalds-Bsffgucof-Sax C-Mn (GLUCOSAMINE CHONDR 1500 COMPLX PO) Take [...] st Contact Info) Description 06/03/2024 1:00 PM JETTING MACHINE OPERATOR Appointment [facility] Rheumatology [address] [place] [address] 06/03/2024 2:00 PM JETTING MACHINE OPERATOR Office Visit [facility] - Rheumatology [address] [place] [address] [phone] Gloria Smith MD [address] [place] [phone] documented as of this encounter Visit Diagnoses Diagnosis Abnormal LFTs- Primary Other abnormal blood chemistry Chronic right-sided low back pain with right-sided sciatica Rheumatoid arthritis of multiple sites with negative rheumatoid factor (HCC) Chronic pain syndrome documented in this encounter Care Teams Vine Pruner Relationship Specialty Start Date End Date Isidro Heredia MD Rheumatology 02/09/11 documented as of this encounter
--- OUTSIDE RECORDS SUMMARY | 2024-05-10 18:45 | XMS_ITS | Encounter Summary ---
Author Organization [facility] Address [address] [facility] [place] [address] Care Team Providers Care Recruiter Manager Name Role Phone Isidro Heredia MD Unavailable [phone] Tomas Hyman MD Primary Care Provider [phone] Encounter Details Date Type Department Care Team (Latest Contact Info) Description 10/28/2018 11:55 AM CDT - 10/28/2018 11:59 PM CDT Hospital Encounter [facility] Pain Care [address] [place] [address] [place] [address] [place] [address] Discharge Disposition: Home or Self Care Social [...] Pond RN - 10/28/2018 12:30 PM CDT [facility] Procedure Center Pain Discharge Instructions Selective Epidural [...] headache, or any other problems, please call [phone] or after hours callDr. Mirza at [phone] and tell them your physician's name. The exchange will alert the physician devops solutions architect. If sedation is given: No sedation given. For Your Next Visit: No additional instructions. Other Instructions: May remove band-aid in 12 Hours. Return in 2 weeks for follow up. documented in this encounter Medications at Time of Discharge Medication Sig Dispensed Refills Start Date End Date atorvastatin (LIPITOR) 40 MG tablet Take 1 (one) tablet by mouth at bedtime pkfiuxpgfhs-ulqw-gpk ysorb, PF, 0.5-1-0.5 % SOLN Instill 1 [...] ??? buPROPion (WELLBUTRIN) 100 MG tablet ??? gsaywocuekl-xbdj-ipwlqklk, PF, (REFRESH OPTIVE ADVANCED PF) 0.5-1-0.5 % SOLN ??? carvedilol (COREG) 12.5 MG tablet ??? ferrous sulfate 325 (65 FE) MG tablet ??? gabapentin (NEURONTIN) 300 MG capsule ??? Ncgnzxvuyoq-Dfrknjaax-Rpf C-Mn (GLUCOSAMINE CHONDR 1500 COMPLX PO) ??? [...] identified, and marked by Dr. Mirza. Responsible day haul or farm charter bus driver is not needed due to [...] st Contact Info) Description 06/03/2024 1:00 PM ARCHITECTURAL JOB CAPTAIN Appointment [facility] - Rheumatology [address] [place] [address] [phone] 06/03/2024 2:00 PM ARCHITECTURAL JOB CAPTAIN Office Visit [facility] - Rheumatology [address] [place] [address] [phone] Gloria Smith MD [address] [place] [phone] documented as of this encounter Procedures Procedure [...] buPROPion (WELLBUTRIN) 100 MG tablet ? ? canbpcbcihj-fqsn-gijmzyrr, PF, (REFRESH OPTIVE ADVANCED PF) 0.5-1-0.5 % SOLN ? ? carvedilol (COREG) 12.5 MG tablet ? ? ferrous sulfate 325 (65 FE) MG tablet ? ? gabapentin (NEURONTIN) 300 MG capsule ? ? Lnjssuphwvn-Rorunqqhb-Gog C-Mn (GLUCOSAMINE CHONDR 1500 COMPLX PO) ? [...] identified, and marked by Dr. Mirza. ??Responsible day haul or farm charter bus driver is not needed due to [...] mg documented in this encounter Care Teams Recruiter Manager Relationship Specialty Start Date End Date Tomas Hyman MD [address] [facility] [address] [place] [address] PCP - General Family Medicine 09/05/18 Isidro Heredia MD Rheumatology 02/09/11 documented as of this encounter
--- OUTSIDE RECORDS SUMMARY | 2024-05-10 18:45 | XMS_ITS | Encounter Summary ---
Author Organization [facility] Address [address] [facility] [place] [address] Care Team Providers Care Biology Intern Name Role Phone Isidro Heredia MD Unavailable [phone] Tomas Hyman MD Primary Care Provider [phone] Reason for Visit * Reason Onset Date Comments Infusion 09/24/2019 Encounter Details Date Type Department Care Team (Late st Contact Info) Description 09/24/2019 Telephone [facility] Medical [facility] - Rheumatology [id number] [place] [address] Gloria Smith MD [address] [place] [phone] Infusion Social History Tobacco Use Types [...] st Contact Info) Description 06/03/2024 1:00 PM BOATSWAIN'S MATE Appointment [facility] - Rheumatology [address] [place] [address] [phone] 06/03/2024 2:00 PM BOATSWAIN'S MATE Office Visit [facility] - Rheumatology [address] [place] [address] [phone] Gloria Smith MD [address] [place] [phone] documented as of this encounter Visit Diagnoses Not on filedocumented in this encounter Care Teams Biology Intern Relationship Specialty Start Date End Date Tomas Hyman MD [address] [facility] [address] [place] [address] PCP - General Family Medicine 09/05/18 Isidro Heredia MD Rheumatology 02/09/11 documented as of this encounter
--- OUTSIDE RECORDS SUMMARY | 2024-05-10 18:45 | XMS_ITS | Encounter Summary ---
Author Organization [facility] Address [address] [place] [address] Care Team Providers Care Pr Manager Name Role Phone Isidro Heredia MD Unavailable [phone] Tomas Hyman MD Primary Care Provider [phone] Encounter Details Date Type Department Care Team (Latest Contact Info) Description 10/07/2018 11:45 AM CDT - 10/07/2018 1:20 PM CDT Hospital Encounter [facility] Pain Care [address] [place] [address] [place] [address] [place] [address] Discharge Disposition: Home or Self Care Social [...] Jiang RN - 10/07/2018 12:21 PM CDT [facility] Procedure Center Pain Discharge Instructions Selective [...] headache, or any other problems, please call [phone] or after hours call Dr. Mirza at [phone] and tell them your physician's name. The exchange will alert the physician button sawyer. If sedation is given: No sedation given. For Your Next Visit: No additional instructions. Other Instructions: May remove band-aid in 12 Hours. Return 1 week or per insurance. documented in this encounter Medications at Time of Discharge Medication Sig Dispensed Refills Start Date End Date atorvastatin (LIPITOR) 40 MG tablet Take 1 (one) tablet by mouth at bedtime acuogejgyqz-plpk-eot ysorb, PF, 0.5-1-0.5 % SOLN Instill 1 [...] Contact Info) Description 06/03/2024 1:00 PM CHILD CARE TEAM LEAD Appointment [facility] - Rheumatology [address] [place] [address] 06/03/2024 2:00 PM CHILD CARE TEAM LEAD Office Visit [facility] - Rheumatology [address] [place] [address] Gloria Smith MD [address] [place] [phone] documented as of this encounter Visit [...] mL documented in this encounter Care Teams Pr Manager Relationship Specialty Start Date End Date Tomas Hyman MD [address] [facility] [address] [place] [address] PCP - General Family Medicine 09/05/18 Isidro Heredia MD Rheumatology 02/09/11 documented as of this encounter
--- OUTSIDE RECORDS SUMMARY | 2024-05-10 18:45 | XMS_ITS | Encounter Summary ---
Author Organization [facility] Address [address] [facility] [place] [address] Care Team Providers Care Run Boat Operator Name Role Phone Isidro Heredia MD Unavailable Encounter Details Date Type Department Care Team (Late st Contact Info) Description 08/16/2018 Orders Only [facility] - Rheumatology [address] [place] [address] Isidro Heredia MD [address] [place] [address] Encounter for long-term (current) use [...] Contact Info) Description 06/03/2024 1:00 PM GLASS TECHNICIAN Appointment [facility] - Rheumatology [address] [place] [address] 06/03/2024 2:00 PM GLASS TECHNICIAN Office Visit [facility] - Rheumatology [address] [place] [address] Gloria Smith MD [address] [place] [phone] documented as of this encounter Procedures [...] Resulting Agency Comment Lab Testing performed at: [facility] ??[facility] [id number] Isidro Heredia MD LAB - HEMATOLOGY OR DERABLES [facility] INSURANCE BILL [address] [place] [address] documented in this encounter Visit Diagnoses Diagnosis Encounter for long-term (current) use of medications Encounter for long-term (current) use of other medications documented in this encounter Care Teams Run Boat Operator Relationship Specialty Start Date End Date Isidro Heredia MD Rheumatology 02/09/11 documented as of this encounter
--- OUTSIDE RECORDS SUMMARY | 2024-05-10 18:45 | XMS_ITS | Encounter Summary ---
Author Organization [facility] Address [address] [place] [address] Care Team Providers Care Supervisor Ride Assembly Name Role Phone Isidro Heredia MD Unavailable [phone] Tomas Hyman MD Primary Care Provider [phone] Reason for Referral * Auth/Cert (Routine) - Incomplete Specialty Diagnoses / Procedures Referred By Contsarahi t Referred To Contact Diagnoses Rheumatoid arthritis of multiple sites with negative rheumatoid factor (HCC) Procedures AK DRAIN/INJECT LARGE JOINT/BURSA Gloria Dillon MD [address] [place] [address] Referral ID Status Reason Start Date Expiration Date V isits Requested Visits Authorized [id number] Incomplete 08/29/2019 02/25/2020 1 1 Reason for Visit * Reason Comments Arthritis follow up Encounter Details Date Type Department Care Team (Late st Contact Info) Description 08/29/2019 11:40 AM CDT Video Visit [facility] [employer] Medical [facility] - Rheumatology [address] [place] [address] Gloria Dillon MD [address] [place] [address] Rheumatoid arthritis of multiple sites [...] shoulder range of motion is limited because of pain. Hand tobacco stripper hand is decreased. LABORATORY: Recent Labs Component Name [...] st Contact Info) Description 06/03/2024 1:00 PM X RAY CONTROL EQUIPMENT REPAIRER Appointment [facility] - Rheumatology [address] [place] [address] 06/03/2024 2:00 PM X RAY CONTROL EQUIPMENT REPAIRER Office Visit [facility] - Rheumatology [address] [place] [address] [phone] Gloria Dillon MD [address] [place] [phone] documented as of this encounter Procedures Procedure [...] Testing performed at: [facility] [id number] [place] [address] ?? [facility] [id number] Gloria Dillon MD LAB - CHEMISTRY MARII ARAUJO [facility] INSURANCE BILL [address] [place] [address] * (ABNORMAL) COMPREHENSIVE METABOLIC PANEL (08/29/2019 12:45 PM CDT) [facility] Signature Glucose 94 65 - 99 mg/dL [facility] [...] Resulting Agency Comment Lab Testing performed at: [facility] ??[facility] [id number] Gloria Dillon MD LAB - CHEMISTRY MARII ARAUJO [facility] INSURANCE BILL [address] [place] [address] * (ABNORMAL) CBC WITH DIFFERENTIAL (08/29/2019 12:45 [...] Resulting Agency Comment Lab Testing performed at: [facility] [address] [facility] ??[facility] [id number] Gloria Dillon MD LAB - HEMATOLOGY ORD ERABLES [facility] INSURANCE BILL [address] [place] [address] documented in this encounter Visit Diagnoses Diagnosis [...] Shoulder documented in this encounter Care Teams Supervisor Ride Assembly Relationship Specialty Start Date End Date Tomas Hyman MD [address] [facility] [address] [place] [address] PCP - General Family Medicine 09/05/18 Isidro Heredia MD Rheumatology 02/09/11 documented as of this encounter
--- OUTSIDE RECORDS SUMMARY | 2024-05-10 18:45 | XMS_ITS | Encounter Summary ---
Author Organization [facility] Address [address] [facility] [place] [address] Care Team Providers Care Canopy Inspector Name Role Phone Isidro Heredia MD Unavailable [phone] Tomas Hyman MD Primary Care Provider Reason for Visit * Reason Comments Arthritis follow up Encounter Details Date Type Department Care Team (Late st Contact Info) Description 12/12/2018 10:45 AM CDT Office Visit [facility] - Rheumatology [address] [place] [address] Isidro Heredia MD [address] [place] [address] Abnormal LFTs (Primary Dx); Chronic pain [...] 100 mg by mouth once daily ??? ayardmmublp-hsed-gzvjqxhn, PF, (REFRESH OPTIVE ADVANCED PF) 0.5-1-0.5 % [...] 2 times daily 180 capsule 3 ??? 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 [address] [place] [address] PCP - General Family Medicine 09/05/18 Isidro Heredia MD Rheumatology 02/09/11 documented as of this encounter
--- OUTSIDE RECORDS SUMMARY | 2024-05-10 18:45 | XMS_ITS | Encounter Summary ---
Author Organization [facility] Address [address] [facility] [place] [address] Care Team Providers Care Avionics Safety Inspector Name Role Phone Isidro Heredia MD Unavailable [phone] Tomas Hyman MD Primary Care Provider [phone] Encounter Details Date Type Department Care Team (Late st Contact Info) Description 04/18/2019 1:33 PM SUPERVISOR DENTAL LABORATORY - 04/18/2019 11:59 PM [facility] Hospital Encounter [facility] Urgent Care - Medical Imaging [address] [place] [address] Gloria Smith MD [address] [place] [address] Discharge Disposition: Home or Self [...] 1 (one) tablet by mouth at bedtime adotbmmuahf-fmlr-zrc ysorb, PF, 0.5-1-0.5 % SOLN Instill 1 [...] in the neck. Continue the same medications. RVISOR DENTAL LABORATORY documented in this encounter Plan of Treatment Upcoming Encounters Date Type Department Care Team (Late st Contact Info) Description 06/03/2024 1:00 PM SUPERVISOR DENTAL LABORATORY Appointment [facility] - Rheumatology [address] [place] [address] 06/03/2024 2:00 PM SUPERVISOR DENTAL LABORATORY Office Visit [facility] - Rheumatology [address] [place] [address] Gloria Smith MD [address] [place] [phone] documented as of this encounter Procedures Procedure Name Priority Date/Time Associated Diagnosis Comments XR CERVICAL SPINE 2 OR 3VW Routine 04/18/2019 1:48 PM SUPERVISOR DENTAL LABORATORY Osteoporosis, unspecified osteoporosis type, unspecified pathological fracture presence Rheumatoid arthritis of multiple sites with negative rheumatoid factor (HCC) documented in this encounter Results * XR CERVICAL SPINE 2 OR 3VW (04/18/2019 1:48 PM SUPERVISOR DENTAL LABORATORY) Anatomical Region Laterality Modality Spine Radiographic Reena ging 04/18/2019 1:56 PM SUPERVISOR DENTAL LABORATORY Impressions 04/18/2019 1:59 PM SUPERVISOR DENTAL LABORATORY There is moderate disc space narrowing at C5-6 and C6-7 with osteophytosis at C5-6. This could be further evaluated by MRI if indicated. Reading Radiologist: Cristina Avalos MD on 04/18/2019 at 1:59 PM Narrative 04/18/2019 1:59 PM SUPERVISOR DENTAL LABORATORY Cervical spine AP and lateral INDICATION: Neck [...] (HCC) documented in this encounter Care Teams Avionics Safety Inspector Relationship Specialty Start Date End Date Tomas Hyman MD [address] [place] [address] PCP - General Family Medicine 09/05/18 Isidro Heredia MD Rheumatology 02/09/11 documented as of this encounter
--- OUTSIDE RECORDS SUMMARY | 2024-05-10 18:45 | XMS_ITS | Encounter Summary ---
Author Organization [facility] Address [address] [place] [address] Care Team Providers Care Warehouse Packaging Supervisor Name Role Phone Isidro Heredia MD Unavailable [phone] Tomas Hyman MD Primary Care Provider Reason for Visit * Treatment (Routine) - Closed Specialty Diagnoses / Procedures Referred By Lawrence shah Referred To Contact Infusion Therapy Nurse Diagnoses Rheumatoid arthritis without rheumatoid factor, multiple sites (HCC) Procedures [place] INFLIXIMAB INJECTION Isidro Heredia MD [address] [place] [address] [address] Referral ID Status Reason Start Date Expiration Date Visits Re quested Visits Authorized [id number] Closed 05/13/2018 04/29/2019 1 12 Encounter Details Date Type Department Care Team (Late st Contact Info) Description 10/24/2018 10:00 AM CDT - 10/24/2018 11:59 PM CDT Hospital Encounter [facility] Medical [facility] - Rheumatology [address] [place] [address] Isidro Heredia MD [address] [place] [address] Discharge Disposition: Home or Self [...] Christy RN - 10/24/2018 10:28 AM CDT [place] Rheumatology Post Infusion instructions [...] Sunday through 01-02 call the office at [phone] After hours or on the weekend call the exchange at [phone] If you have had lab work done [...] [facility] as your provider. Jody Christy, RN documented in this encounter Medications at Time of Discharge Medication Sig Dispensed Refills Start Date End Date atorvastatin (LIPITOR) 40 MG tablet Take 1 (one) tablet by mouth at bedtime jfbywcxmzol-gdwa-bmg ysorb, PF, 0.5-1-0.5 % SOLN Instill 1 [...] - 10/24/2018 10:21 AM CDT JOSE Deng [id number] 10/24/2018 Diagnosis: Rheumatoid arthritis without rheumatoid factor, [...] Contact Info) Description 06/03/2024 1:00 PM TECHNICAL SPEC Appointment [facility] - Rheumatology [address] [place] [address] [phone] 06/03/2024 2:00 PM TECHNICAL SPEC Office Visit [facility] - Rheumatology [address] [place] [address] Gloria Smith MD [address] [place] [phone] documented as of this encounter Visit [...] mL/hr documented in this encounter Care Teams Warehouse Packaging Supervisor Relationship Specialty Start Date End Date Tomas Hyman MD [address] [facility] [address] [place] [address] PCP - General Family Medicine 09/05/18 Isidro Heredia MD Rheumatology 02/09/11 documented as of this encounter
--- OUTSIDE RECORDS SUMMARY | 2024-05-10 18:45 | XMS_ITS | Encounter Summary ---
Author Organization [facility] Address [address] [facility] [place] [address] Care Team Providers Care Expeller Worker Name Role Phone Isidro Heredia MD Unavailable [phone] Tomas Hyman MD Primary Care Provider [phone] Encounter Details Date Type Department Care Team (Late Contact Info) Description 03/03/2019 Orders Only [facility] - Rheumatology [address] [place] [address] Gloria Smith [facility] [place] [address] Social History Tobacco Use Types [...] (Late Contact Info) Description 06/03/2024 1:00 PM EXTENSION WORK DIRECTOR Appointment [facility] - Rheumatology [address] [place] [address] 06/03/2024 2:00 PM EXTENSION WORK DIRECTOR Office Visit [facility] - Rheumatology [address] [place] [address] Gloria Smith MD [facility] [place] [address] documented as of this encounter Visit Diagnoses Not on filedocumented in this encounter Care Teams Expeller Worker Relationship Specialty Start Date End Date Tomas Hyman MD [address] [place] [address] PCP - General Family Medicine 09/05/18 Isidro Heredia MD Rheumatology 02/09/11 documented as of this encounter
--- OUTSIDE RECORDS SUMMARY | 2024-05-10 18:45 | XMS_ITS | Encounter Summary ---
Author Organization [facility] Address [address] [facility] [place] [address] Care Team Providers Care Freight Air Brake Fitter Name Role Phone Isidro Heredia MD Unavailable [phone] Reason for Visit * Treatment (Routine) - Closed Specialty Diagnoses / Procedures Referred By Contac t Referred To Contact Infusion Therapy Nurse Diagnoses Rheumatoid arthritis without rheumatoid factor, multiple sites (HCC) Procedures [place] INFLIXIMAB INJECTION Isidro Heredia MD [address] [place] [address] [address] Referral ID Status Reason Start Date Expiration Date Visits Re quested Visits Authorized [id number] Closed 05/13/2018 04/29/2019 1 12 Encounter Details Date Type Department Care Team (Late st Contact Info) Description 07/11/2018 9:17 AM CDT - 07/11/2018 11:59 PM CDT Hospital Encounter [facility] Medical [facility] - Rheumatology [address] [place] [address] Isidro Heredia MD [address] [place] [address] Discharge Disposition: Home or Self [...] Sahu RN - 07/11/2018 10:01 AM CDT [place] Rheumatology Post Infusion instructions [...] through Sunday 9-5 call the office at [phone] After hours or on the weekend call the exchange at [phone] If you have had lab work done [...] 07/11/2018 10:03 AM CDT JOSE Chalino Deng [id number] 07/11/2018 Diagnosis: Rheumatoid arthritis without rheumatoid factor, [...] st Contact Info) Description 06/03/2024 1:00 PM CLAMSHELL OPERATOR Appointment [facility] - Rheumatology [address] [place] [address] 06/03/2024 2:00 PM CLAMSHELL OPERATOR Office Visit [facility] - Rheumatology [address] [place] [address] Gloria Smith MD [address] [place] [phone] documented as of this encounter Visit [...] documented in this encounter Care Teams Freight Air Brake Fitter Relationship Specialty Start Date End Date Isidro Heredia MD Rheumatology 02/09/11 documented as of this encounter
--- OUTSIDE RECORDS SUMMARY | 2024-05-10 18:45 | XMS_ITS | Encounter Summary ---
Author Organization [facility] Address [address] [facility] [place] [address] Care Team Providers Care Microfilm Processor Name Role Phone Isidro Heredia MD Unavailable [phone] Reason for Visit * Reason Comments Follow-up Encounter Details Date Type Department Care Team (Late st Contact Info) Description 05/16/2018 3:30 PM SCHOOL ADMISSIONS REPRESENTATIVE Office Visit [facility] - Rheumatology [address] [place] [address] [phone] Isidro Heredia MD [address] [place] [address] Rheumatoid arthritis of multiple sites with [...] Comments Blood Pressure 143/75 05/16/2018 3:57 PM SCHOOL ADMISSIONS REPRESENTATIVE Pulse 68 05/16/2018 3:57 PM SCHOOL ADMISSIONS REPRESENTATIVE Temperature - - Respiratory Rate - - Oxygen Saturation - - Inhaled Oxygen Concentration - - Weight 105.7 kg (233 lb) 05/16/2018 3:57 PM SCHOOL ADMISSIONS REPRESENTATIVE Height - - Body Mass Index 33.43 [...] 2 times daily 180 capsule 1 ??? Bqlbgpwrxio-Smmqttwlh-Psh C-Mn (GLUCOSAMINE CHONDR 1500 COMPLX PO) Take [...] Follow up in office in 8 weeks OL ADMISSIONS REPRESENTATIVE documented in this encounter Plan of Treatment Upcoming Encounters Date Type Department Care Team (Late st Contact Info) Description 06/03/2024 1:00 PM SCHOOL ADMISSIONS REPRESENTATIVE Appointment [facility] - Rheumatology [address] [place] [address] [phone] 06/03/2024 2:00 PM SCHOOL ADMISSIONS REPRESENTATIVE Office Visit [facility] - Rheumatology [address] [place] [address] Gloria Smith MD [address] [place] [phone] documented as of this encounter Visit Diagnoses [...] at 1800 $ Given 05/16/2018 5:34 PM SCHOOL ADMISSIONS REPRESENTATIVE Right Shoulder triamcinolone acetonide (KENALOG-40) injection 80 mg 80 mg, Intra-articular, ONCE, 1 dose, On Gabriela 05/16/18 at 1800, Shake well before using. $ Given 05/16/2018 5:34 PM SCHOOL ADMISSIONS REPRESENTATIVE 80 mg Right Shoulder documented in this encounter Care Teams Microfilm Processor Relationship Specialty Start Date End Date Isidro Heredia MD Rheumatology 02/09/11 documented as of this encounter
--- OUTSIDE RECORDS SUMMARY | 2024-05-10 18:45 | XMS_ITS | Encounter Summary ---
Author Organization [facility] Address [address] [place] [address] Care Team Providers Care Errand Runner Name Role Phone Isidro Heredia MD Unavailable [phone] Tomas Hyman MD Primary Care Provider [phone] Reason for Visit * Treatment (Routine) - Closed Specialty Diagnoses / Procedures Referred By Lawrence shah Referred To Contact Infusion Therapy Nurse Diagnoses Rheumatoid arthritis without rheumatoid factor, multiple sites (HCC) Procedures [place] INFLIXIMAB INJECTION Isidro Heredia MD [address] [place] [address] [address] Referral ID Status Reason Start Date Expiration Date Visits Re quested Visits Authorized [id number] Closed 05/13/2018 04/29/2019 1 12 Encounter Details Date Type Department Care Team (Late st Contact Info) Description 09/05/2018 10:00 AM CDT - 09/05/2018 11:59 PM CDT Hospital Encounter [facility] Medical [facility] - Rheumatology [address] [place] [address] Isidro Heredia MD [address] [place] [address] Discharge Disposition: Home or Self [...] Christy RN - 09/05/2018 10:29 AM CDT [place] Rheumatology Post Infusion instructions You [...] Sunday through 01-02 call the office at [phone] After hours or on the weekend call the exchange at [phone] If you have had lab work done [...] [facility] as your provider. Jody Christy RN documented in this encounter Medications at Time of Discharge Medication Sig Dispensed Refills Start Date End Date atorvastatin (LIPITOR) 40 MG tablet Take 1 (one) tablet by mouth at bedtime rfpkwbatjob-hlnv-jyf ysorb, PF, 0.5-1-0.5 % SOLN Instill 1 [...] - 09/05/2018 10:27 AM CDT JOSE Deng [id number] 09/05/2018 Diagnosis: Rheumatoid arthritis without rheumatoid factor, [...] st Contact Info) Description 06/03/2024 1:00 PM COMPOSITION INSTRUCTOR Appointment [facility] - Rheumatology [address] [place] [address] [phone] 06/03/2024 2:00 PM COMPOSITION INSTRUCTOR Office Visit [facility] - Rheumatology [address] [place] [address] [phone] Gloria Smith MD [address] [place] [phone] documented as of this encounter Visit [...] mL/hr documented in this encounter Care Teams Errand Runner Relationship Specialty Start Date End Date Tomas Hyman MD [address] [facility] [address] [place] [address] PCP - General Family Medicine 09/05/18 Isidro Heredia MD Rheumatology 02/09/11 documented as of this encounter
--- OUTSIDE RECORDS SUMMARY | 2024-05-10 18:45 | XMS_ITS | Encounter Summary ---
Author Organization [facility] Address [address] [facility] [place] [address] Care Team Providers Care Feed And Farm Management Adviser Name Role Phone Isidro Heredia MD Unavailable [phone] Tomas Hyman MD Primary Care Provider [phone] Encounter Details Date Type Department Care Team (Late st Contact Info) Description 01/24/2019 Orders Only [facility] Medical [facility] - Rheumatology [address] [place] [address] Gloria Smith MD [address] [place] [phone] Rheumatoid arthritis of multiple sites with [...] know that his lab tests are normal. ONNEL RESEARCH PSYCHOLOGIST * Ella Peters - 01/24/2019 3:23 PM CDT Patient was here today and is requesting orders for labs. documented in this encounter Plan of Treatment Upcoming Encounters Date Type Department Care Team (Late st Contact Info) Description 06/03/2024 1:00 PM PERSONNEL RESEARCH PSYCHOLOGIST Appointment [facility] - Rheumatology [address] [place] [address] 06/03/2024 2:00 PM PERSONNEL RESEARCH PSYCHOLOGIST Office Visit [facility] - Rheumatology [address] [place] [address] Gloria Smith MD [address] [place] [phone] documented as of this encounter Procedures Procedure Name Priority Date/Time Associated Diagnosis Comments C-REACTIVE PROTEIN Routine 03/06/2019 11 :34 AM PERSONNEL RESEARCH PSYCHOLOGIST Rheumatoid arthritis of multiple sites with negative rheumatoid factor (HCC) ERYTHROCYTE SEDIMENTATION RATE Routine 03/06/2019 11:34 AM PERSONNEL RESEARCH PSYCHOLOGIST Rheumatoid arthritis of multiple sites with negative rheumatoid factor (HCC) CBC W AUTO DIFFERENTIAL Routine 03/06/2019 11:34 AM PERSONNEL RESEARCH PSYCHOLOGIST Rheumatoid arthritis of multiple sites with negative rheumatoid factor (HCC) COMPREHENSIVE METABOLIC PANEL Routine 03/06/2019 11:34 AM PERSONNEL RESEARCH PSYCHOLOGIST Rheumatoid arthritis of multiple sites with negative rheumatoid factor (HCC) documented in this encounter Results * C-REACTIVE PROTEIN (03/06/2019 11:34 AM PERSONNEL RESEARCH PSYCHOLOGIST) C-Reactive Protein 0.31 <=0.50 mg/dL [facility] INSURANCE BILL Blood BLOOD SPECIMEN / Unknown 03/06/2019 11:34 AM PERSONNEL RESEARCH PSYCHOLOGIST 03/06/2019 Narrative Resulting Agency Comment Lab Testing performed at: [place] [address] [address] ?? [place] [id number] Gloria Smith MD LAB - CHEMISTRY MARII ARAUJO [facility] INSURANCE BILL [address] [place] [address] * ERYTHROCYTE SEDIMENTATION RATE (03/06/2019 11:34 AM PERSONNEL RESEARCH PSYCHOLOGIST) Erythrocyte Sedimentation Rate Westergren 6 0 - 20 MM/HR [facility] INSURANCE BILL Blood BLOOD SPECIMEN / Unknown 03/06/2019 11:34 AM PERSONNEL RESEARCH PSYCHOLOGIST 03/06/2019 Narrative Resulting Agency Comment Lab Testing performed at: [facility] [address] [address] ?? [facility] [id number] Gloria Smith MD LAB - HEMATOLOGY ORD ERABLES [facility] INSURANCE BILL [address] [place] [address] * (ABNORMAL) COMPREHENSIVE METABOLIC PANEL (03/06/2019 11:34 AM PERSONNEL RESEARCH PSYCHOLOGIST) Glucose 81 70 - 105 mg/dL [facility] [...] BLOOD SPECIMEN / Unknown 03/06/2019 11:34 AM PERSONNEL RESEARCH PSYCHOLOGIST 03/06/2019 Narrative Resulting Agency Comment Lab Testing performed at: [facility] [id number] [place], [place] [address] ?? [place] [id number] Gloria Smith MD LAB - CHEMISTRY MARII ARAUJO [facility] INSURANCE BILL [address] [place] [address] * (ABNORMAL) CBC WITH DIFFERENTIAL (03/06/2019 11:34 AM PERSONNEL RESEARCH PSYCHOLOGIST) WBC 9.4 4.4 - 10.7 x10E9/L [facility] [...] INSURANCE BILL Comment:MPV [place] BLOOD ([facility]) 11.0 fl 9.4-12.9 Granulocytes % 64.9 [...] BLOOD SPECIMEN / Unknown 03/06/2019 11:34 AM PERSONNEL RESEARCH PSYCHOLOGIST 03/06/2019 Narrative Resulting Agency Comment Lab Testing performed at: [facility] [address] [facility] ?? [facility] [id number] Gloria Smith MD LAB - HEMATOLOGY ORD ERABLES [facility] INSURANCE BILL [address] [place] [address] documented in this encounter Visit Diagnoses Diagnosis Rheumatoid arthritis of multiple sites with negative rheumatoid factor (HCC)- Primary documented in this encounter Care Teams Feed And Farm Management Adviser Relationship Specialty Start Date End Date Tomas Hyman MD [address] [place] [address] PCP - General Family Medicine 09/05/18 Isidro Heredia MD Rheumatology 02/09/11 documented as of this encounter
--- OUTSIDE RECORDS SUMMARY | 2024-05-10 18:45 | XMS_ITS | Encounter Summary ---
Author Organization [facility] Address [address] [facility] [place] [address] Care Team Providers Care Centrifuge Separator Tender Name Role Phone Isidro Heredia MD Unavailable [phone] Tomas Hyman MD Primary Care Provider [phone] Reason for Visit * Reason Onset Date Comments Appointment 01/02/2019 Encounter Details Date Type Department Care Team (Late st Contact Info) Description 01/02/2019 Telephone [facility] Medical [facility] - Rheumatology [address] [place] [address] Isidro Heredia MD [address] [place] [address] Appointment Social History Tobacco Use Types [...] st Contact Info) Description 06/03/2024 1:00 PM BIOINFORMATICS TEAM MEMBER Appointment [facility] - Rheumatology [address] [place] [address] [phone] 06/03/2024 2:00 PM BIOINFORMATICS TEAM MEMBER Office Visit [facility] - Rheumatology [address] [place] [address] Gloria Smith MD [address] [place] [phone] documented as of this encounter Visit Diagnoses Not on filedocumented in this encounter Care Teams Centrifuge Separator Tender Relationship Specialty Start Date End Date Tomas Hyman MD [address] [facility] [address] [place] [address] PCP - General Family Medicine 09/05/18 Isidro Heredia MD Rheumatology 02/09/11 documented as of this encounter
--- OUTSIDE RECORDS SUMMARY | 2024-05-10 18:45 | XMS_ITS | Encounter Summary ---
Author Organization [facility] Address [address] [facility] [place] [address] Care Team Providers Care Condenser Cleaner Name Role Phone Isidro Heredia MD Unavailable [phone] Tomas Hyman MD Primary Care Provider [phone] Encounter Details Date Type Department Care Team (Latest Contact Info) Description 2018 2:03 PM CDT - 2018 11:59 PM CDT Hospital Encounter [facility] Pain Care [address] [place] [address] [place] [address] [place] [address] Discharge Disposition: Home or Self Care Social [...] 1 (one) tablet by mouth at bedtime gtltqwbxmuj-huvh-hbm ysorb, PF, 0.5-1-0.5 % SOLN Instill 1 [...] ??? buPROPion (WELLBUTRIN) 100 MG tablet ??? cjyioacquhg-rqxt-npsajync, PF, (REFRESH OPTIVE ADVANCED PF) 0.5-1-0.5 % SOLN ??? carvedilol (COREG) 12.5 MG tablet ??? ferrous sulfate 325 (65 FE) MG tablet ??? gabapentin (NEURONTIN) 300 MG capsule ??? Cgxndunurom-Kycvhwlrb-Bic C-Mn (GLUCOSAMINE CHONDR 1500 COMPLX PO) ??? [...] identified, and marked by Dr. Mirza. Responsible cross country truck driver is not needed due to [...] Contact Info) Description 06/03/2024 1:00 PM RN BURN Appointment [facility] - Rheumatology [address] [place] [address] [phone] 06/03/2024 2:00 PM RN BURN Office Visit [facility] - Rheumatology [address] [place] [address] Gloria Smith MD [address] [place] [phone] Pending Results Name Type Priority Associated Diagnoses [...] mg documented in this encounter Care Teams Condenser Cleaner Relationship Specialty Start Date End Date Tomas Hyman MD [address] [place] [address] PCP - General Family Medicine 09/05/18 Isidro Heredia MD Rheumatology 02/09/11 documented as of this encounter
--- OUTSIDE RECORDS SUMMARY | 2024-05-10 18:45 | XMS_ITS | Encounter Summary ---
Author Organization [facility] Address [address] [facility] [place] [address] Care Team Providers Care Counter Intelligence Name Role Phone Isidro Heredia MD Unavailable [phone] Tomas Hyman MD Primary Care Provider Reason for Visit * Reason Comments Arthritis follow up Encounter Details Date Type Department Care Team (Late st Contact Info) Description 11/10/2019 10:40 AM CDT Office Visit [facility] - Rheumatology [address] [place] [address] Gloria Smith MD [address] [place] [phone] Rheumatoid arthritis of multiple sites with [...] Bilateral hand swollen in all fingers. Hand shorthand reporter decreased bilaterally. Shoulder range of motion decreased [...] bone density scan - took alendronate from [id number]. Chronic neck and back pain - follows with Pain Management and received epidural injections. - Off Percocet since July,. documented in this encounter Plan of Treatment Upcoming Encounters Date Type Department Care Team (Late st Contact Info) Description 06/03/2024 1:00 PM HIDE SPREADER Appointment [facility] - Rheumatology [address] [place] [address] 06/03/2024 2:00 PM HIDE SPREADER Office Visit [facility] - Rheumatology [address] [place] [address] [phone] Gloria Smith MD [address] [place] [phone] documented as of this encounter Visit Diagnoses Diagnosis Rheumatoid arthritis of multiple sites with negative rheumatoid factor (HCC)- Primary documented in this encounter Care Teams Counter Intelligence Relationship Specialty Start Date End Date Tomas Hyman MD [address] [place] [address] PCP - General Family Medicine 09/05/18 Isidro Heredia MD Rheumatology 02/09/11 documented as of this encounter
--- OUTSIDE RECORDS SUMMARY | 2024-05-10 18:45 | XMS_ITS | Encounter Summary ---
Author Organization [facility] Address [address] [place] [address] Care Team Providers Care Lead Accountant Name Role Phone Isidro Heredia MD Unavailable [phone] Tomas Hyman MD Primary Care Provider [phone] Reason for Visit * Treatment (Routine) - Closed Specialty Diagnoses / Procedures Referred By Lawrence shah Referred To Contact Infusion Therapy Nurse Diagnoses Rheumatoid arthritis without rheumatoid factor, multiple sites (HCC) Procedures [place] INFLIXIMAB INJECTION Gloria Smith MD [address] [place] [address] [address] Referral ID Status Reason Start Date Expiration Date Visits Re quested Visits Authorized [id number] Closed 05/09/2019 04/29/2020 1 12 Encounter Details Date Type Department Care Team (Late st Contact Info) Description 07/18/2019 10:44 AM CDT - 07/18/2019 11:59 PM CDT Hospital Encounter [facility] Medical [facility] - Rheumatology [address] [place] [address] Gloria Smith MD [facility] [place] [address] Discharge Disposition: Home or Self [...] Sahu RN - 07/18/2019 11:47 AM CDT [place] Rheumatology Post Infusion instructions [...] Sunday through 01-02 call the office at [phone] After hours or on the weekend call the exchange at [phone] If you have had lab work done [...] 1 (one) tablet by mouth at bedtime yfzhlwggarz-jcsr-zn lysorb, PF, 0.5-1-0.5 % SOLN Instill 1 [...] - 07/18/2019 11:00 AM CDT JOSE Deng [id number] 07/18/2019 Diagnosis: Rheumatoid arthritis without rheumatoid factor, [...] Contact Info) Description 06/03/2024 1:00 PM CARBON FURNACE OPERATOR HELPER Appointment [facility] - Rheumatology [address] [place] [address] 06/03/2024 2:00 PM CARBON FURNACE OPERATOR HELPER Office Visit [facility] - Rheumatology [address] [place] [address] Gloria Smith MD [address] [place] [phone] documented as of this encounter Visit [...] documented in this encounter Care Teams Lead Accountant Relationship Specialty Start Date End Date Tomas Hyman MD [address] [place] [address] PCP - General Family Medicine 09/05/18 Isidro Heredia MD Rheumatology 02/09/11 documented as of this encounter
--- OUTSIDE RECORDS SUMMARY | 2024-05-10 18:45 | XMS_ITS | Encounter Summary ---
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, multiple sites (HCC) Procedures [place] INFLIXIMAB INJECTION Isidro Heredia MD [address] [place] [address] [address] Referral ID Status Reason Start Date Expiration Date Visits Re quested Visits Authorized [id number] Closed 05/13/2018 04/29/2019 1 12 Encounter Details Date Type Department Care Team (Late st Contact Info) Description 05/16/2018 1:30 PM OCCUPATIONAL HEALTH NURSE SUPERVISOR - 05/16/2018 11:59 PM OCCUPATIONAL HEALTH NURSE SUPERVISOR Hospital Encounter [facility] Medical [facility] - Rheumatology [address] [place] [address] Isidro Heredia MD [address] [place] [address] Discharge Disposition: Home or Self [...] Comments Blood Pressure 137/69 05/16/2018 2:45 PM OCCUPATIONAL HEALTH NURSE SUPERVISOR Pulse 66 05/16/2018 2:45 PM OCCUPATIONAL HEALTH NURSE SUPERVISOR Temperature 36.9 ??C (98.4 ??F) 05/16/2018 1:49 PM CS T Respiratory Rate 18 05/16/2018 2:45 PM OCCUPATIONAL HEALTH NURSE SUPERVISOR Oxygen Saturation - - Inhaled Oxygen Concentration - - Weight 105.7 kg (233 lb) 05/16/2018 1:49 PM OCCUPATIONAL HEALTH NURSE SUPERVISOR Height - - Body Mass Index 33.43 01/11/2016 3:12 PM CDT documented in this encounter Discharge Instructions * Discharge Instructions* Jody Sahu, RN - 05/16/2018 1:53 PM OCCUPATIONAL HEALTH NURSE SUPERVISOR [place] Rheumatology Post Infusion instructions You have [...] through Sunday 9-5 call the office at [phone] After hours or on the weekend call the exchange at [phone] If you have had lab work done [...] Center as your provider. Jody Sahu RN PATIONAL HEALTH NURSE SUPERVISOR documented in this encounter Medications at [...] 05/16/2018 2:02 PM CST JOSE Chalino Deng [id number] 05/16/2018 Diagnosis: Rheumatoid arthritis without rheumatoid factor, [...] at Doctor's visit today Jody Sahu RN PATIONAL HEALTH NURSE SUPERVISOR documented in this encounter Plan of Treatment Upcoming Encounters Date Type Department Care Team (Late st Contact Info) Description 06/03/2024 1:00 PM OCCUPATIONAL HEALTH NURSE SUPERVISOR Appointment [facility] - Rheumatology [address] [place] [address] [phone] 06/03/2024 2:00 PM OCCUPATIONAL HEALTH NURSE SUPERVISOR Office Visit [facility] - Rheumatology [address] [place] [address] [phone] Gloria Smith MD [address] [place] [phone] documented as of this encounter Visit [...] filter. $ New Bag/Syringe 05/16/2018 2:08 PM OCCUPATIONAL HEALTH NURSE SUPERVISOR 300 mg 40 mL/hr documented in this encounter Care Teams Croze Cutter Helper Relationship Specialty Start Date End Date Isidro Heredia MD Rheumatology 02/09/11 documented as of this encounter
--- OUTSIDE RECORDS SUMMARY | 2024-05-10 18:45 | XMS_ITS | Encounter Summary ---
Author Organization [facility] Address [address] [place] [place] [address] Care Team Providers Care Middleware Solutions Architect Name Role Phone Isidro Heredia MD Unavailable [phone] Tomas Hyman MD Primary Care Provider [phone] Reason for Visit * Reason Onset Date Comments Update 12/05/2019 Encounter Details Date Type Department Care Team (Late st Contact Info) Description 12/05/2019 Telephone [facility] Medical [facility] - Rheumatology [address] [place] [address] Gloria Smith MD [address] [place] [phone] Update Social History Tobacco Use Types [...] st Contact Info) Description 06/03/2024 1:00 PM COCOA POWDER MIXER OPERATOR Appointment [facility] - Rheumatology [address] [place] [address] [phone] 06/03/2024 2:00 PM COCOA POWDER MIXER OPERATOR Office Visit [facility] - Rheumatology [address] [place] [address] Gloria Smith MD [address] [place] [phone] documented as of this encounter Visit Diagnoses Not on filedocumented in this encounter Care Teams Middleware Solutions Architect Relationship Specialty Start Date End Date Tomas Hyman MD [address] [facility] [address] [place] [address] PCP - General Family Medicine 09/05/18 Isidro Heredia MD Rheumatology 02/09/11 documented as of this encounter
--- OUTSIDE RECORDS SUMMARY | 2024-05-10 18:45 | XMS_ITS | Encounter Summary ---
Author Organization [facility] Address [address] [facility] [place] [address] Care Team Providers Care Pipe Line Repairer Name Role Phone Isidro Heredia MD Unavailable Tomas Hyman MD Primary Care Provider [phone] Encounter Details Date Type Department Care Team (Latest Contact Info) Description 2018 12:45 PM CDT - 2018 2:02 PM CDT Hospital Encounter [facility] Pain Care [address] [place], [place] [phone] [place] [address] [place] [address] Discharge Disposition: Home or Self Care Social [...] Mckinney RN - 2018 2:02 PM CDT [facility] Procedure [...] headache, or any other problems, please call [phone] or after hours callDr. Mirza at [phone] and tell them your physician's name. The exchange will alert the physician clinical implementation specialist. If sedation is given: No sedation given. For Your Next Visit: No additional instructions. Other Instructions: May remove band-aid in 12 Hours. Return in 1 week for TFE #3. documented in this encounter Medications at Time of Discharge Medication Sig Dispensed Refills Start Date End Date atorvastatin (LIPITOR) 40 MG tablet Take 1 (one) tablet by mouth at bedtime hwsyahdcbjm-kbpb-ehk ysorb, PF, 0.5-1-0.5 % SOLN Instill 1 [...] st Contact Info) Description 06/03/2024 1:00 PM PIN FEATHER MACHINE OPERATOR Appointment [facility] - Rheumatology [address] [place] [address] [phone] 06/03/2024 2:00 PM PIN FEATHER MACHINE OPERATOR Office Visit [facility] - Rheumatology [address] [place] [address] Gloria Smith MD [address] [place] [phone] documented as of this encounter Visit Diagnoses Not on filedocumented in this encounter Care Teams Pipe Line Repairer Relationship Specialty Start Date End Date Tomas Hyman MD [address] [place] [address] PCP - General Family Medicine 09/05/18 Isidro Heredia MD Rheumatology 02/09/11 documented as of this encounter
--- OUTSIDE RECORDS SUMMARY | 2024-05-10 18:45 | XMS_ITS | Encounter Summary ---
Author Organization [facility] Address [address] [place] [address] Care Team Providers Care Sportspersons Name Role Phone Isidro Heredia MD Unavailable [phone] Tomas Hyman MD Primary Care Provider [phone] Encounter Details Date Type Department Care Team (Late Contact Info) Description 09/17/2019 Orders Only [facility] - Rheumatology [address] [place] [address] Gloria Smith MD [address] [place] [phone] Rheumatoid arthritis of multiple sites with [...] (Late Contact Info) Description 06/03/2024 1:[address] LIAISON Appointment [facility] - Rheumatology [address] [place] [address] 06/03/2024 2:[address] LIAISON Office Visit [facility] - Rheumatology [address] [place] [address] Gloria Smith MD [address] [place] [address] [phone] documented as of this encounter Procedures Procedure [...] Resulting Agency Comment Lab [facility] performed [facility]: [facility] [address] [address] ?? [place] [id number] Gloria Smith MD LAB - CHEMISTRY MARII ARAUJO [facility] INSURANCE BILL [address] [place] [address] documented in this encounter Visit Diagnoses Diagnosis Rheumatoid arthritis of multiple sites with negative rheumatoid factor (HCC) documented in this encounter Care Teams Sportspersons Relationship Specialty Start Date End Date Tomas Hyman MD [address] [place] [address] PCP - General Family Medicine 09/05/18 Isidro Heredia MD Rheumatology 02/09/11 documented as of this encounter
--- OUTSIDE RECORDS SUMMARY | 2024-05-10 18:45 | XMS_ITS | Encounter Summary ---
Author Organization [facility] Address [address] [facility] [place] [address] Care Team Providers Care Hand Finisher Name Role Phone Isidro Heredia MD Unavailable [phone] Tomas Hyman MD Primary Care Provider [phone] Reason for Visit * Treatment (Routine) - Closed Specialty Diagnoses / Procedures Referred By Lawrence shah Referred To Contact Infusion Therapy Nurse Diagnoses Rheumatoid arthritis without rheumatoid factor, multiple sites (HCC) Procedures [place] INFLIXIMAB INJECTION Isidro Heredia MD [address] [place] [address] [address] Referral ID Status Reason Start Date Expiration Date Visits Re quested Visits Authorized [id number] Closed 05/13/2018 04/29/2019 1 12 Encounter Details Date Type Department Care Team (Late st Contact Info) Description 01/24/2019 12:32 PM CDT - 01/24/2019 11:59 PM CDT Hospital Encounter [facility] Medical [facility] - Rheumatology [address] [place] [address] Gloria Smith MD [address] [place] [phone] Discharge Disposition: Home or Self Care [...] Sahu RN - 01/24/2019 1:18 PM CDT [place] Rheumatology Post Infusion instructions You have [...] Sunday through 01-02 call the office at [phone] After hours or on the weekend call the exchange at [phone] If you have had lab work done [...] 1 (one) tablet by mouth at bedtime xkvsgxsgyyr-gzwm-rri ysorb, PF, 0.5-1-0.5 % SOLN Instill 1 [...] - 01/24/2019 1:21 PM CDT JOSE Deng [id number] 01/24/2019 Diagnosis: Rheumatoid arthritis without rheumatoid factor, [...] Contact Info) Description 06/03/2024 1:00 PM CUSTOMER ACCOUNT COORDINATOR Appointment [facility] - Rheumatology [address] [place] [address] [phone] 06/03/2024 2:00 PM CUSTOMER ACCOUNT COORDINATOR Office Visit [facility] - Rheumatology [address] [place] [address] Gloria Smith MD [address] [place] [phone] documented as of this encounter Visit [...] mL/hr documented in this encounter Care Teams Hand Finisher Relationship Specialty Start Date End Date Tomas Hyman MD [address] [facility] [address] [place] [phone] PCP - General Family Medicine 09/05/18 Isidro Heredia MD Rheumatology 02/09/11 documented as of this encounter
--- OUTSIDE RECORDS SUMMARY | 2024-05-10 18:45 | XMS_ITS | Encounter Summary ---
Author Organization [facility] Address [address] [facility] [place] [address] Care Team Providers Care Cad Design Engineer Name Role Phone Isidro Heredia MD Unavailable [phone] Tomas Hyman MD Primary Care Provider [phone] Reason for Visit * Treatment (Routine) - Closed Specialty Diagnoses / Procedures Referred By Lawrence t Referred To Contact Infusion Therapy Nurse Diagnoses Rheumatoid arthritis without rheumatoid factor, multiple sites (HCC) Procedures [place] INFLIXIMAB INJECTION Isidro Heredia MD [address] [place] [address] [address] Referral ID Status Reason Start Date Expiration Date Visits Re quested Visits Authorized [id number] Closed 05/13/2018 04/29/2019 1 12 Encounter Details Date Type Department Care Team (Late st Contact Info) Description 04/18/2019 11:45 AM DIGITAL ACCOUNT DIRECTOR - 04/18/2019 1:32 PM DIGITAL ACCOUNT DIRECTOR Hospital Encounter [facility] Medical [facility] - Rheumatology [address] [place] [address] Gloria Smith MD [address] [place] [phone] Discharge Disposition: Home or Self Care [...] Comments Blood Pressure 138/80 04/18/2019 12:12 PM DIGITAL ACCOUNT DIRECTOR Pulse 71 04/18/2019 12:12 PM DIGITAL ACCOUNT DIRECTOR Temperature 37.1 ??C (98.8 ??F) 04/18/2019 12:[address] Respiratory Rate 17 04/18/2019 12:12 PM DIGITAL ACCOUNT DIRECTOR Oxygen Saturation - - Inhaled Oxygen Concentration - - Weight 107.5 kg (237 lb) 04/18/2019 12:12 PM DIGITAL ACCOUNT DIRECTOR Height - - Body Mass Index 34.01 09/05/2018 10:54 AM CDT documented in this encounter Discharge Instructions * Discharge Instructions* Jody Sahu RN - 04/18/2019 12:19 PM DIGITAL ACCOUNT DIRECTOR [place] Rheumatology Post Infusion instructions You [...] through Sunday 9-5 call the office at [phone] After hours or on the weekend call the exchange at [phone] If you have had lab work done [...] Hospital as your provider. Jody Sahu RN TAL ACCOUNT DIRECTOR documented in this encounter Medications at Time of Discharge Medication Sig Dispensed Refills Start Date End Date atorvastatin (LIPITOR) 40 MG tablet Take 1 (one) tablet by mouth at bedtime hahslndfjur-fqqf-cgf ysorb, PF, 0.5-1-0.5 % SOLN Instill 1 [...] 04/18/2019 12:26 PM CST JOSE Allred Deng [id number] 04/18/2019 Diagnosis: Rheumatoid arthritis without rheumatoid factor, [...] Next treatment? 6 weeks Jody Sahu RN TAL ACCOUNT DIRECTOR documented in this encounter Plan of Treatment Upcoming Encounters Date Type Department Care Team (Late st Contact Info) Description 06/03/2024 1:00 PM DIGITAL ACCOUNT DIRECTOR Appointment [facility] - Rheumatology [address] [place] [address] 06/03/2024 2:00 PM DIGITAL ACCOUNT DIRECTOR Office Visit [facility] - Rheumatology [address] [place] [address] Gloria Smith MD [address] [place] [phone] documented as of this encounter Visit [...] filter. $ New Bag/Syringe 04/18/2019 12:27 PM DIGITAL ACCOUNT DIRECTOR 400 mg 135 mL/hr documented in this encounter Care Teams Cad Design Engineer Relationship Specialty Start Date End Date Tomas Hyman MD [address] [facility] [address] [place] [address] PCP - General Family Medicine 09/05/18 Isidro Heredia MD Rheumatology 02/09/11 documented as of this encounter
--- OUTSIDE RECORDS SUMMARY | 2024-05-10 18:45 | XMS_ITS | Encounter Summary ---
Author Organization [facility] Address [address] [facility] [place] [place] [address] Care Team Providers Care Administration Clerk Name Role Phone Isidro Heredia MD Unavailable [phone] Tomas Hyman MD Primary Care Provider [phone] Encounter Details Date Type Department Care Team (Latest Contact Info) Description 10/07/2018 1:21 PM CDT - 10/07/2018 11:59 PM T Hospital Encounter [facility] Pain Care [address] [place], [place] [phone] [place] [address] [place] [phone] Discharge Disposition: Home or Self Care Social [...] 1 (one) tablet by mouth at bedtime dkpwfnktzde-kicy-jms ysorb, PF, 0.5-1-0.5 % SOLN Instill 1 [...] ??? buPROPion (WELLBUTRIN) 100 MG tablet ??? tkzrfkxfmgh-yuaz-fudoxkcu, PF, (REFRESH OPTIVE ADVANCED PF) 0.5-1-0.5 % SOLN ??? carvedilol (COREG) 12.5 MG tablet ??? ferrous sulfate 325 (65 FE) MG tablet ??? gabapentin (NEURONTIN) 300 MG capsule ??? Mnvckztwbuy-Cleyicidc-Jqy C-Mn (GLUCOSAMINE CHONDR 1500 COMPLX PO) ??? [...] identified, and marked by Dr. Mirza. Responsible spike driver is not needed due to the [...] st Contact Info) Description 06/03/2024 1:00 PM BARBER APPRENTICE Appointment [facility] - Rheumatology [address] [place] [address] 06/03/2024 2:00 PM BARBER APPRENTICE Office Visit [facility] - Rheumatology [address] [place] [address] Gloria Smith MD [address] [place] [phone] documented as of this encounter Procedures [...] buPROPion (WELLBUTRIN) 100 MG tablet ? ? qhcmayvknxw-fetu-vvgbhkwr, PF, (REFRESH OPTIVE ADVANCED PF) 0.5-1-0.5 % SOLN ? ? carvedilol (COREG) 12.5 MG tablet ? ? ferrous sulfate 325 (65 FE) MG tablet ? ? gabapentin (NEURONTIN) 300 MG capsule ? ? Fjwhuqydkoe-Gtigpskln-Fuw C-Mn (GLUCOSAMINE CHONDR 1500 COMPLX PO) ? [...] identified, and marked by Dr. Mirza. ??Responsible spike driver is not needed due to the [...] Levels Lumb/Sac, Fluoro. Alejandro Mirza MD Alejandro Mizra MD DIAGNOSTIC IMAGING O RDERABLES documented in this encounter Visit Diagnoses Diagnosis Radiculopathy of lumbar region Thoracic or lumbosacral neuritis or radiculitis, unspecified Radiculopathy of lumbosacral region Thoracic or lumbosacral neuritis or radiculitis, unspecified documented in this encounter Care Teams Administration Clerk Relationship Specialty Start Date End Date Tomas Hyman MD [address] [facility] [address] [place] [address] PCP - General Family Medicine 5/9/19 Isidro Heredia MD Rheumatology 02/09/11 documented as of this encounter
--- OUTSIDE RECORDS SUMMARY | 2024-05-10 18:45 | XMS_ITS | Encounter Summary ---
Author Organization [facility] Address [address] [place] [address] Care Team Providers Care Wine Steward Name Role Phone Isidro Heredia MD Unavailable [phone] Tomas Hyman MD Primary Care Provider [phone] Reason for Visit * Reason Onset Date Comments MEDICATION REFILL 07/13/2019 Encounter Details Date Type Department Care Team (Late st Contact Info) Description 07/13/2019 Refill [facility] - Rheumatology [address] [place] [address] Gloria Smith MD [address] [place] [phone] MEDICATION REFILL Social History Tobacco Use [...] (Late Contact Info) Description 06/03/2024 1:00 PM WINDOW CUTTER Appointment [facility] - Rheumatology [address] [place] [address] 06/03/2024 2:00 PM WINDOW CUTTER Office Visit [facility] - Rheumatology [address] [place] [address] Gloria Smith MD [address] [place] [phone] documented as of this encounter Visit Diagnoses Not on filedocumented in this encounter Care Teams Wine Steward Relationship Specialty Start Date End Date Tomas Hyman MD [address] [place] [address] PCP - General Family Medicine 09/05/18 Isidro Heredia MD Rheumatology 02/09/11 documented as of this encounter
--- OUTSIDE RECORDS SUMMARY | 2024-05-10 18:45 | XMS_ITS | Encounter Summary ---
Author Organization [facility] Address [address] [facility] [place] [address] Care Team Providers Care Baffle Installer Name Role Phone Isidro Heredia MD Unavailable [phone] Tomas Hyman MD Primary Care Provider [phone] Encounter Details Date Type Department Care Team (Late Contact Info) Description 10/24/2018 Orders Only [facility] - Rheumatology [address] [place] [address] Isidro Heredia MD [address] [place] [address] Social History Tobacco Use Types Packs/Day [...] (Late Contact Info) Description 06/03/2024 1:00 PM FUNERAL PLANNING COUNSELOR Appointment [facility] - Rheumatology [address] [place] [address] 06/03/2024 2:00 PM FUNERAL PLANNING COUNSELOR Office Visit [facility] - Rheumatology [address] [place] [address] Gloria Smith MD [address] [place] [phone] documented as of this encounter Procedures Procedure [...] Resulting Agency Comment Lab Testing performed at: [facility] [address] ??[facility] [id number] Isidro Heredia MD LAB - HEMATOLOGY OR DERABLES [facility] INSURANCE BILL [address] [place] [address] * COMPREHENSIVE METABOLIC PANEL (10/24/2018 10:00 AM [...] Agency Comment Lab Testing performed at: [facility] [place] [address] [facility] ??[facility] [id number] Isidro Heredia MD LAB - CHEMISTRY ORD ERABLES [facility] INSURANCE BILL [address] [place] [address] documented in this encounter Visit Diagnoses Not on filedocumented in this encounter Care Teams Baffle Installer Relationship Specialty Start Date End Date Tomas Hyman MD [address] [facility] [address] [place] [address] PCP - General Family Medicine 09/05/18 Isidro Heredia MD Rheumatology 02/09/11 documented as of this encounter
--- OUTSIDE RECORDS SUMMARY | 2024-05-10 18:45 | XMS_ITS | Encounter Summary ---
Author Organization [facility] Address [address] [place] [address] Care Team Providers Care Developmental Therapist Name Role Phone Isidro Heredia MD Unavailable [phone] Tomas Hyman MD Primary Care Provider [phone] Reason for Visit * Reason Onset Date Comments Infusion 02/28/2019 Encounter Details Date Type Department Care Team (Late st Contact Info) Description 02/28/2019 Telephone [facility] Medical [facility] - Rheumatology [address] [place] [address] Gloria Smith MD [address] [place] [phone] Infusion Social History Tobacco Use Types [...] st Contact Info) Description 06/03/2024 1:00 PM AIR CREW SUPERVISOR Appointment [facility] - Rheumatology [address] [place] [address] [phone] 06/03/2024 2:00 PM AIR CREW SUPERVISOR Office Visit [facility] - Rheumatology [address] [place] [address] [phone] Gloria Smith MD [address] [place] [phone] documented as of this encounter Visit Diagnoses Not on filedocumented in this encounter Care Teams Developmental Therapist Relationship Specialty Start Date End Date Tomas Hyman MD [address] [place] [address] PCP - General Family Medicine 09/05/18 Isidro Heredia MD Rheumatology 02/09/11 documented as of this encounter
--- OUTSIDE RECORDS SUMMARY | 2024-05-10 18:45 | XMS_ITS | Encounter Summary ---
Author Organization [facility] Address [address] [place] [address] Care Team Providers Care Hospital Nurse Name Role Phone Isidro Heredia MD Unavailable [phone] Tomas Hyman MD Primary Care Provider [phone] Reason for Visit * Treatment (Routine) - Closed Specialty Diagnoses / Procedures Referred By Lawrence t Referred To Contact Infusion Therapy Nurse Diagnoses Rheumatoid arthritis without rheumatoid factor, multiple sites (HCC) Procedures MD INFLIXIMAB INJECTION Isidro Heredia MD [address] [place] [address] [phone] Referral ID Status Reason Start Date Expiration Date Visits Re quested Visits Authorized [id number] Closed 05/13/2018 04/29/2019 1 12 Encounter Details Date Type Department Care Team (Late st Contact Info) Description 03/06/2019 8:54 AM DIRECTORY ASSISTANCE OPERATOR - 03/06/2019 11:59 PM DIRECTORY ASSISTANCE OPERATOR Hospital Encounter [facility] Medical [facility] - Rheumatology [address] [place] [address] Gloria Smith MD [address] [place] [phone] Discharge Disposition: Home or Self Care [...] Comments Blood Pressure 141/82 03/06/2019 9:14 AM DIRECTORY ASSISTANCE OPERATOR Pulse 88 03/06/2019 9:14 AM DIRECTORY ASSISTANCE OPERATOR Temperature 36.8 ??C (98.2 ??F) 03/06/2019 9:14 AM CS T Respiratory Rate 17 03/06/2019 9:14 AM DIRECTORY ASSISTANCE OPERATOR Oxygen Saturation - - Inhaled Oxygen Concentration - - Weight 112 kg (247 lb) 03/06/2019 9:14 AM DIRECTORY ASSISTANCE OPERATOR Height - - Body Mass Index 35.44 09/05/2018 10:54 AM CDT documented in this encounter Discharge Instructions * Discharge Instructions* Jody Sahu RN - 03/06/2019 9:18 AM DIRECTORY ASSISTANCE OPERATOR NE Rheumatology Post Infusion instructions You have [...] Sunday through 01-02 call the office at [phone] After hours or on the weekend call the exchange at [phone] If you have had lab work done [...] Hospital as your provider. Jody Sahu RN CTORY ASSISTANCE OPERATOR documented in this encounter Medications at Time of Discharge Medication Sig Dispensed Refills Start Date End Date atorvastatin (LIPITOR) 40 MG tablet Take 1 (one) tablet by mouth at bedtime tjdcrwyiakw-yibq-ujg ysorb, PF, 0.5-1-0.5 % SOLN Instill 1 [...] 03/06/2019 9:28 AM CST JOSE Allred Deng [id number] 03/06/2019 Diagnosis: Rheumatoid arthritis without rheumatoid factor, multiple sites [M06.09]. Pt denies symptoms of infection or antibiotic use, no open wounds, or recent surgery, or plans for surgery in the next couple of weeks. Pt is aware that we use the 0-10 pain scale to assess discomfort. 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 front office help pt signs consent for treatment for this [...] Next treatment? 6 weeks Jody Sahu RN CTORY ASSISTANCE OPERATOR documented in this encounter Plan of Treatment Upcoming Encounters Date Type Department Care Team (Late st Contact Info) Description 06/03/2024 1:00 PM DIRECTORY ASSISTANCE OPERATOR Appointment [facility] - Rheumatology [address] [place] [address] [phone] 06/03/2024 2:00 PM DIRECTORY ASSISTANCE OPERATOR Office Visit [facility] - Rheumatology [address] [place] [address] Gloria Smith MD [address] [place] [phone] documented as of this encounter Visit Diagnoses [...] filter. $ New Bag/Syringe 03/06/2019 9:23 AM DIRECTORY ASSISTANCE OPERATOR 400 mg 135 mL/hr documented in this encounter Care Teams Hospital Nurse Relationship Specialty Start Date End Date Tomas Hyman MD [address] [facility] [address] [place] [address] PCP - General Family Medicine 09/05/18 Isidro Heredia MD Rheumatology 02/09/11 documented as of this encounter
--- OUTSIDE RECORDS SUMMARY | 2024-05-10 18:45 | XMS_ITS | Encounter Summary ---
Author Organization [facility] Address [address] [facility] [place] [address] Care Team Providers Care Senior Front End Web Developer Name Role Phone Isidro Heredia MD Unavailable [phone] Tomas Hyman MD Primary Care Provider [phone] Reason for Visit * Reason Onset Date Comments MEDICATION REFILL 10/23/2019 Encounter Details Date Type Department Care Team (Late Contact Info) Description 10/23/2019 Refill [facility] - Rheumatology [address] [place], [place] [phone] Mychart, Generic Provider MEDICATION REFILL Social History [...] (Late Contact Info) Description 06/03/2024 1:00 PM BRYOLOGIST Appointment [facility] - Rheumatology [address] [place] [address] 06/03/2024 2:00 PM BRYOLOGIST Office Visit [facility] - Rheumatology [address] [place] [address] Gloria Smith MD [address] [place] [phone] documented as of this encounter Visit Diagnoses Not on filedocumented in this encounter Care Teams Senior Front End Web Developer Relationship Specialty Start Date End Date Tomas Hyman MD [address] [place] [address] PCP - General Family Medicine 09/05/18 Isidro Heredia MD Rheumatology 02/09/11 documented as of this encounter
--- OUTSIDE RECORDS SUMMARY | 2024-05-10 18:45 | XMS_ITS | Encounter Summary ---
Author Organization [facility] Address [address] [facility] [place] [address] Care Team Providers Care New Car Sales Manager Name Role Phone Isidro Heredia MD Unavailable [phone] Tomas Hyman MD Primary Care Provider [phone] Reason for Visit * Treatment (Routine) - Closed Specialty Diagnoses / Procedures Referred By Lawrence shah Referred To Contact Infusion Therapy Nurse Diagnoses Rheumatoid arthritis without rheumatoid factor, multiple sites (HCC) Procedures [place] INFLIXIMAB INJECTION Gloria Smith MD [address] [place] [address] [facility] [address] [place] [phone] Referral ID Status Reason Start Date Expiration Date Visits Re quested Visits Authorized [id number] Closed 05/09/2019 04/29/2020 1 12 Encounter Details Date Type Department Care Team (Late st Contact Info) Description 08/29/2019 10:00 AM CDT - 08/29/2019 11:59 PM CDT Hospital Encounter [facility] - Rheumatology [address] [facility] [place] [address] Gloria Smith MD [address] [place] [address] Discharge Disposition: Home or Self [...] - 08/29/2019 10:12 AM CDT Discharge Instructions [facility] Rheumatology You have received your [...] through Sunday 9-5 call the office at [phone]. After hours or on the weekend call the exchange at [phone]. If you have had lab work done [...] 1 (one) tablet by mouth at bedtime xjidgkmclly-tyhw-iz lysorb, PF, 0.5-1-0.5 % SOLN Instill 1 [...] - 08/29/2019 10:00 AM CDT JOSE Deng [id number] 08/29/2019 Diagnosis: Rheumatoid arthritis without rheumatoid factor, [...] Contact Info) Description 06/03/2024 1:00 PM CHIEF PRIVACY OFFICER Appointment [facility] - Rheumatology [address] [place] [address] 06/03/2024 2:00 PM CHIEF PRIVACY OFFICER Office Visit [facility] - Rheumatology [address] [place] [address] Gloria Smith MD [address] [place] [phone] documented as of this encounter Visit [...] previously received three standard infliximab infusions at [facility] -Patient has no history of infusion-related [...] mL/hr documented in this encounter Care Teams New Car Sales Manager Relationship Specialty Start Date End Date Tomas Hyman MD [address] [place] [address] PCP - General Family Medicine 09/05/18 Isidro Heredia MD Rheumatology 02/09/11 documented as of this encounter
--- OUTSIDE RECORDS SUMMARY | 2024-05-10 18:45 | XMS_ITS | Encounter Summary ---
Author Organization [facility] Address [address] [facility] [place] [address] Care Team Providers Care Blue Leather Setter Name Role Phone Isidro Heredia MD Unavailable [phone] Tomas Hyman MD Primary Care Provider [phone] Reason for Visit * Reason Comments Arthritis follow up Encounter Details Date Type Department Care Team (Late st Contact Info) Description 09/05/2018 11:15 AM CDT Office Visit [facility] - Rheumatology [address] [place] [address] Isidro Heredia MD [address] [place] [address] Chronic right-sided low back pain with [...] 2 times daily 180 capsule 3 ??? Pncfzpsaasp-Xgponcfad-Zbx C-Mn (GLUCOSAMINE CHONDR 1500 COMPLX PO) Take [...] st Contact Info) Description 06/03/2024 1:00 PM MONEY MARKET DEALER Appointment [facility] - Rheumatology [address] [place] [address] 06/03/2024 2:00 PM MONEY MARKET DEALER Office Visit [facility] - Rheumatology [address] [place] [address] Gloria Smith MD [address] [place] [phone] documented as of this encounter Visit Diagnoses Diagnosis Chronic right-sided low back pain with right-sided sciatica- Primary Rheumatoid arthritis of multiple sites with negative rheumatoid factor (HCC) Chronic pain syndrome documented in this encounter Care Teams Blue Leather Setter Relationship Specialty Start Date End Date Tomas Hyman MD [address] [facility] [address] [place] [address] PCP - General Family Medicine 09/05/18 Isidro Heredia MD Rheumatology 02/09/11 documented as of this encounter
--- OUTSIDE RECORDS SUMMARY | 2024-05-10 18:45 | XMS_ITS | Encounter Summary ---
Author Organization [facility] Address [address] [facility] [place] [address] Care Team Providers Care Cork Slabs Sawyer Name Role Phone Isidro Heredia MD Unavailable [phone] Tomas Hyman MD Primary Care Provider [phone] Reason for Visit * Reason Onset Date Comments MEDICATION REFILL 10/24/2019 MEDICATION REFILL 11/10/2019 Encounter Details Date Type Department Care Team (Late st Contact Info) Description 10/24/2019 Refill [facility] Medical [facility] - Rheumatology [address] [place] [address] Golria Smith MD [address] [place] [phone] MEDICATION REFILL; MEDICATION REFILL Social History [...] st Contact Info) Description 06/03/2024 1:00 PM RADIOLOGY TECH Appointment [facility] - Rheumatology [address] [place] [address] [phone] 06/03/2024 2:00 PM RADIOLOGY TECH Office Visit [facility] - Rheumatology [address] [place] [address] [phone] Gloria Smith MD [address] [place] [phone] documented as of this encounter Visit Diagnoses Not on filedocumented in this encounter Care Teams Cork Slabs Sawyer Relationship Specialty Start Date End Date Tomas Hyman MD [address] [facility] [address] [place] [address] PCP - General Family Medicine 09/05/18 Isidro Heredia MD Rheumatology 02/09/11 documented as of this encounter
--- OUTSIDE RECORDS SUMMARY | 2024-05-10 18:45 | XMS_ITS | Encounter Summary ---
Author Organization [facility] Address [address] [facility] [place] [address] Care Team Providers Care Swing Frame Grinder Operator Name Role Phone Isidro Heredia MD Unavailable [phone] Tomas Hyman MD Primary Care Provider [phone] Encounter Details Date Type Department Care Team [...] Contact Info) Description 06/03/2024 1:00 PM SHIP'S ENGINEER Appointment [facility] - Rheumatology [address] [place] [address] 06/03/2024 2:00 PM SHIP'S ENGINEER Office Visit [facility] - Rheumatology [address] [place] [address] Gloria Smith MD [address] [place] [place] [phone] documented as of this encounter Visit Diagnoses Not on filedocumented in this encounter Care Teams Swing Frame Grinder Operator Relationship Specialty Start Date End Date Tomas Hyman MD [address] [facility] [address] [place] [address] PCP - General Family Medicine 09/05/18 Isidro Heredia MD Rheumatology 02/09/11 documented as of this encounter
--- OUTSIDE RECORDS SUMMARY | 2024-05-10 18:45 | XMS_ITS | Encounter Summary ---
Author Organization [facility] Address [address] [facility] [place] [address] Care Team Providers Care Gold Blower Name Role Phone Isidro Heredia MD Unavailable [phone] Tomas Hyman MD Primary Care Provider [phone] Encounter Details Date Type Department Care Team (Late Contact Info) Description 01/19/2019 Orders Only [facility] - Rheumatology [address] [place] [address] Gloria [facility] [place] [address] Social History Tobacco Use Types [...] Contact Info) Description 06/03/2024 1:00 PM PLATING FOREMAN Appointment [facility] - Rheumatology [address] [place] [address] 06/03/2024 2:00 PM PLATING FOREMAN Office Visit [facility] - Rheumatology [address] [place] [address] Gloria Smith MD [facility] [place] [place] [address] documented as of this encounter Visit Diagnoses Not on filedocumented in this encounter Care Teams Gold Blower Relationship Specialty Start Date End Date Tomas Hyman MD [address] [place] [address] PCP - General Family Medicine 09/05/18 Isidro Heredia MD Rheumatology 02/09/11 documented as of this encounter
--- OUTSIDE RECORDS SUMMARY | 2024-05-10 18:45 | XMS_ITS | Encounter Summary ---
Author Organization [facility] Address [address] [facility] [place] [address] Care Team Providers Care Radiation Physicist Name Role Phone Isidro Heredia MD Unavailable [phone] Tomas Hyman MD Primary Care Provider [phone] Reason for Visit * Reason Comments Arthritis follow up Encounter Details Date Type Department Care Team (Late st Contact Info) Description 04/18/2019 1:00 PM EMBEDDED SOFTWARE ENGINEER Office Visit [facility] - Rheumatology [address] [place] [address] Gloria Smith MD [address] [place] [phone] Osteoporosis, unspecified osteoporosis type, unspecified pathological [...] Comments Blood Pressure 106/72 04/18/2019 12:38 PM EMBEDDED SOFTWARE ENGINEER Pulse 94 04/18/2019 12:38 PM EMBEDDED SOFTWARE ENGINEER Temperature 37.2 ??C (98.9 ??F) 04/18/2019 12:[address] Respiratory Rate - - Oxygen Saturation - - Inhaled Oxygen Concentration - - Weight - - Height - - Body Mass Index - - documented in this encounter Patient Instructions * Patient Instructions* Gloria Smith MD - 04/18/2019 1:02 PM EMBEDDED SOFTWARE ENGINEER Decreased methotrexate to 4 tablets per week. Continue folic acid 1mg daily. Decrease prednisone to 5mg (1/2 tablet) twice a day. Bone density scan. Stop Fosamax after completing the 90 day refill. Switch Flexeril to tizanidine as muscle relaxant for neck pain. DDED SOFTWARE ENGINEER documented in this encounter Progress Notes [...] pain - Weaning percocet from Dr. Heredia. DDED SOFTWARE ENGINEER documented in this encounter Plan of Treatment Upcoming Encounters Date Type Department Care Team (Late st Contact Info) Description 06/03/2024 1:00 PM EMBEDDED SOFTWARE ENGINEER Appointment [facility] - Rheumatology [address] [place] [address] 06/03/2024 2:00 PM EMBEDDED SOFTWARE ENGINEER Office Visit [facility] - Rheumatology [address] [place] [address] Gloria Smith MD [facility] [place] [address] documented as of this encounter Results * XR CERVICAL SPINE 2 OR 3VW (04/18/2019 1:48 PM EMBEDDED SOFTWARE ENGINEER) Anatomical Region Laterality Modality Spine Radiographic Reena ging 04/18/2019 1:56 PM EMBEDDED SOFTWARE ENGINEER Impressions 04/18/2019 1:59 PM EMBEDDED SOFTWARE ENGINEER There is moderate disc space narrowing at C5-6 and C6-7 with osteophytosis at C5-6. This could be further evaluated by MRI if indicated. Reading Radiologist: Cristina Avalos MD on 04/18/2019 at 1:59 PM Narrative 04/18/2019 1:59 PM EMBEDDED SOFTWARE ENGINEER Cervical spine AP and lateral INDICATION: Neck [...] (HCC) documented in this encounter Care Teams Radiation Physicist Relationship Specialty Start Date End Date Tomas Hyman MD [address] [place] [address] PCP - General Family Medicine 09/05/18 Isidro Heredia MD Rheumatology 02/09/11 documented as of this encounter
--- OUTSIDE RECORDS SUMMARY | 2024-05-10 18:45 | XMS_ITS | Encounter Summary ---
Author Organization [facility] Address [address] [facility] [place] [address] Care Team Providers Care Dehydrator Name Role Phone Isidro Heredia MD Unavailable [phone] Tomas Hyman MD Primary Care Provider [phone] Reason for Visit * Reason Onset Date Comments MEDICATION REFILL 04/14/2019 Encounter Details Date Type Department Care Team (Late st Contact Info) Description 04/14/2019 Refill [facility] - Rheumatology [address] [place] [address] Gloria Smith MD [address] [place] [phone] MEDICATION REFILL Social History Tobacco Use [...] (Late Contact Info) Description 06/03/2024 1:00 PM ADAPTED PHYSICAL EDUCATION TEACHER Appointment [facility] - Rheumatology [address] [place] [address] 06/03/2024 2:00 PM ADAPTED PHYSICAL EDUCATION TEACHER Office Visit [facility] - Rheumatology [address] [place] [address] Gloria Smith MD [address] [place] [phone] documented as of this encounter Visit Diagnoses Not on filedocumented in this encounter Care Teams Dehydrator Relationship Specialty Start Date End Date Tomas Hyman MD [address] [place] [address] PCP - General Family Medicine 09/05/18 Isidro Heredia MD Rheumatology 02/09/11 documented as of this encounter
--- OUTSIDE RECORDS SUMMARY | 2024-05-10 18:45 | XMS_ITS | Encounter Summary ---
Author Organization [facility] Address [address] [facility] [place] [address] Care Team Providers Care C Engineer Name Role Phone Isidro Heredia MD Unavailable [phone] Tomas Hyman MD Primary Care Provider [phone] Encounter Details Date Type Department Care Team [...] Contact Info) Description 06/03/2024 1:00 PM RESIDENTIAL DRIVER Appointment [facility] Medical [facility] - Rheumatology [address] [place] [address] 06/03/2024 2:00 PM RESIDENTIAL DRIVER Office Visit [facility] Medical [facility] - Rheumatology [address] [place] [address] Gloria Smith MD [address] [place] [phone] documented as of this encounter Visit Diagnoses Not on filedocumented in this encounter Care Teams C Engineer Relationship Specialty Start Date End Date Tomas Hyman MD [address] [place] [address] PCP - General Family Medicine 09/05/18 Isidro Heredia MD Rheumatology 02/09/11 documented as of this encounter
--- OUTSIDE RECORDS SUMMARY | 2024-05-10 18:45 | XMS_ITS | Encounter Summary ---
Author Organization [facility] Address [address] [place] [address] Care Team Providers Care Tool Hardener Name Role Phone Isidro Heredia MD Unavailable [phone] Tomas Hyman MD Primary Care Provider [phone] Encounter Details Date Type Department Care Team (Late Contact Info) Description 12/01/2019 Orders Only [facility] - Rheumatology [address] [place] [address] Gloria Smith MD [address] [place] [phone] Social History Tobacco Use Types Packs/Day [...] (Late Contact Info) Description 06/03/2024 1:00 PM MANAGEMENT AIDE Appointment [facility] - Rheumatology [address] [place] [address] 06/03/2024 2:00 PM MANAGEMENT AIDE Office Visit [facility] - Rheumatology [address] [place] [address] Gloria Smith MD [address] [place] [phone] documented as of this encounter Visit Diagnoses Not on filedocumented in this encounter Care Teams Tool Hardener Relationship Specialty Start Date End Date Tomas Hyman MD [address] [facility] [address] [place] [address] PCP - General Family Medicine 09/05/18 Isidro Heredia MD Rheumatology 02/09/11 documented as of this encounter
--- OUTSIDE RECORDS SUMMARY | 2024-05-10 18:45 | XMS_ITS | Encounter Summary ---
Author Organization [facility] Address [address] [place] [address] Care Team Providers Care Information Resources Manager Name Role Phone Isidro Heredia MD Unavailable [phone] Tomas Hyman MD Primary Care Provider [phone] Reason for Visit * Reason Onset Date Comments MEDICATION REFILL 07/13/2019 Encounter Details Date Type Department Care Team (Late Contact Info) Description 07/13/2019 Refill [facility] Medical [facility] - Rheumatology [address] [place] [address] [phone] Isidro Heredia MD [address] [place] [address] MEDICATION REFILL Social History Tobacco Use [...] (Late Contact Info) Description 06/03/2024 1:00 PM TRAVEL REGISTERED NURSE ICU Appointment [facility] - Rheumatology [address] [place] [address] [phone] 06/03/2024 2:00 PM TRAVEL REGISTERED NURSE ICU Office Visit [facility] - Rheumatology [address] [place] [address] [phone] Gloria Smith MD [address] [place] [phone] documented as of this encounter Visit Diagnoses Not on filedocumented in this encounter Care Teams Information Resources Manager Relationship Specialty Start Date End Date Tomas Hyman MD [address] [facility] [address] [place] [address] PCP - General Family Medicine 09/05/18 Isidro Heredia MD Rheumatology 02/09/11 documented as of this encounter
--- OUTSIDE RECORDS SUMMARY | 2024-05-10 18:45 | XMS_ITS | Encounter Summary ---
Author Organization [facility] Address [address] [facility] [place] [address] Care Team Providers Care Sales Promotion Director Name Role Phone Isidro Heredia MD Unavailable [phone] Tomas Hyman MD Primary Care Provider [phone] Reason for Visit * Reason Onset Date Comments MEDICATION REFILL 10/23/2019 Encounter Details Date Type Department Care Team (Late st Contact Info) Description 10/23/2019 Refill [facility] - Rheumatology [address] [place] [address] Gloria Smith MD [address] [place] [address] MEDICATION REFILL Social History Tobacco Use [...] st Contact Info) Description 06/03/2024 1:00 PM CHORE TENDER Appointment [facility] - Rheumatology [address] [place] [address] [id number] 06/03/2024 2:00 PM CHORE TENDER Office Visit [facility] - Rheumatology [address] [place] [address] Gloria Smith MD [address] [place] [phone] documented as of this encounter Visit Diagnoses Not on filedocumented in this encounter Care Teams Sales Promotion Director Relationship Specialty Start Date End Date Tomas Hyman MD [address] [facility] [address] [place] [address] PCP - General Family Medicine 09/05/18 Isidro Heredia MD Rheumatology 02/09/11 documented as of this encounter
--- OUTSIDE RECORDS SUMMARY | 2024-05-10 18:45 | XMS_ITS | Encounter Summary ---
Author Organization [facility] Address [address] [place] [address] Care Team Providers Care Hotel Or Motel Room Service Supervisor Name Role Phone Isidro Heredia MD Unavailable [phone] Tomas Hyman MD Primary Care Provider [phone] Encounter Details Date Type Department Care Team (Late Contact Info) Description 05/09/2019 Orders Only [facility] - Rheumatology [address] [place] [address] Gloria [facility] [place] [address] Social History Tobacco Use Types [...] (Late Contact Info) Description 06/03/2024 1:00 PM NOC TECHNICIAN Appointment [facility] - Rheumatology [address] [place] [address] 06/03/2024 2:00 PM NOC TECHNICIAN Office Visit [facility] - Rheumatology [address] [place] [address] Gloria Smith MD [facility] [place] [address] documented as of this encounter Visit Diagnoses Not on filedocumented in this encounter Care Teams Hotel Or Motel Room Service Supervisor Relationship Specialty Start Date End Date Tomas Hyman MD [address] [place] [address] PCP - General Family Medicine 09/05/18 Isidro Heredia MD Rheumatology 02/09/11 documented as of this encounter
--- OUTSIDE RECORDS SUMMARY | 2024-05-10 18:45 | XMS_ITS | Encounter Summary ---
Author Organization [facility] Address [address] [facility] [place] [address] Care Team Providers Care Catechist Name Role Phone Isidro Heredia MD Unavailable [phone] Tomas Hyman MD Primary Care Provider [phone] Reason for Visit * Treatment (Routine) - Closed Specialty Diagnoses / Procedures Referred By Lawrence shah Referred To Contact Infusion Therapy Nurse Diagnoses Rheumatoid arthritis without rheumatoid factor, multiple sites (HCC) Procedures [place] INFLIXIMAB INJECTION Gloria Smith MD [address] [place] [address] [address] Referral ID Status Reason Start Date Expiration Date Visits Re quested Visits Authorized [id number] Closed 05/09/2019 04/29/2020 1 12 Encounter Details Date Type Department Care Team (Late st Contact Info) Description 11/10/2019 9:38 AM CDT - 11/10/2019 11:59 PM CDT Hospital Encounter [facility] Medical [facility] - Rheumatology [address] [place] [address] Gloria Smith MD [facility] [place] [address] Discharge Disposition: Home or Self [...] Sahu RN - 11/10/2019 10:10 AM CDT [place] Rheumatology Post Infusion instructions [...] Sunday through 01-02 call the office at [phone] After hours or on the weekend call the exchange at [phone] If you have had lab work done [...] 1 (one) tablet by mouth at bedtime oocnffdjfmy-xzdb-os lysorb, PF, 0.5-1-0.5 % SOLN Instill 1 [...] 11/10/2019 10:00 AM CDT JOSE Chalino Deng [id number] 11/10/2019 Diagnosis: Rheumatoid arthritis without rheumatoid factor, multiple sites [M06.09]. Pt denies symptoms of infection or antibiotic use, no open wounds, or recent surgery, or plans for surgery in the next couple of weeks. Pt is aware that we use the 0-10 pain scale to assess discomfort. 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 desk manager pt signs consent for treatment [...] Contact Info) Description 06/03/2024 1:00 PM COMPOSITION MIXER Appointment [facility] - Rheumatology [address] [place] [address] 06/03/2024 2:00 PM COMPOSITION MIXER Office Visit [facility] - Rheumatology [address] [place] [address] Gloria Smith MD [address] [place] [address] documented as of this encounter Visit [...] mL/hr documented in this encounter Care Teams Catechist Relationship Specialty Start Date End Date Tomas Hyman MD [address] [facility] [address] [place] [id number] PCP - General Family Medicine 09/05/18 Isidro Heredia MD Rheumatology 02/09/11 documented as of this encounter
--- OUTSIDE RECORDS SUMMARY | 2024-05-10 18:45 | XMS_ITS | Encounter Summary ---
Author Organization [facility] Address [address] [place] [address] Care Team Providers Care Steel Fixer Name Role Phone Isidro Heredia MD Unavailable [phone] Tomas Hyman MD Primary Care Provider [phone] Encounter Details Date Type Department Care Team [...] Contact Info) Description 06/03/2024 1:00 PM CONSTRUCTION CREW MEMBER Appointment [facility] - Rheumatology [address] [place] [address] 06/03/2024 2:00 PM CONSTRUCTION CREW MEMBER Office Visit [facility] - Rheumatology [address] [place] [address] Gloria Smith MD [address] [place] [address] documented as of this encounter Visit Diagnoses Not on filedocumented in this encounter Care Teams Steel Fixer Relationship Specialty Start Date End Date Tomas Hyman MD [address] [facility] [address] [place] [address] PCP - General Family Medicine 09/05/18 Isidro Heredia MD Rheumatology 02/09/11 documented as of this encounter
--- OUTSIDE RECORDS SUMMARY | 2024-05-10 18:45 | XMS_ITS | Encounter Summary ---
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, multiple sites (HCC) Procedures [place] INFLIXIMAB INJECTION Gloria Smith MD [address] [place] [address] [facility] [address] [place] [address] Referral ID Status Reason Start Date Expiration Date Visits Re quested Visits Authorized [id number] Closed 05/09/2019 04/29/2020 1 12 Encounter Details Date Type Department Care Team (Late st Contact Info) Description 09/26/2019 9:49 AM CDT - 09/26/2019 11:59 PM CDT Hospital Encounter [facility] - Rheumatology [address] [facility] [place] [address] Gloria Smith MD [address] [place] [address] Discharge Disposition: Home or Self [...] Sahu RN - 09/26/2019 10:33 AM CDT [place] Rheumatology Post Infusion instructions [...] through Sunday 9-5 call the office at [phone] After hours or on the weekend call the exchange at [phone] If you have had lab work done [...] 1 (one) tablet by mouth at bedtime cowqagddpfm-ayti-uc lysorb, PF, 0.5-1-0.5 % SOLN Instill 1 [...] - 09/26/2019 10:00 AM CDT JOSE Deng [id number] 09/26/2019 Diagnosis: Rheumatoid arthritis without rheumatoid factor, [...] st Contact Info) Description 06/03/2024 1:00 PM BEZEL CUTTER Appointment [facility] - Rheumatology [address] [place] [address] 06/03/2024 2:00 PM BEZEL CUTTER Office Visit [facility] - Rheumatology [address] [place] [address] [phone] Gloria Smith MD [address] [place] [phone] documented as of this encounter Visit [...] previously received three standard infliximab infusions at [facility] -Patient has no history of infusion-related [...] mL/hr documented in this encounter Care Teams Color Room Attendant Relationship Specialty Start Date End Date Tomas Hyman MD [address] [facility] [address] [place] [address] PCP - General Family Medicine 09/05/18 Isidro Heredia MD Rheumatology 02/09/11 documented as of this encounter
--- OUTSIDE RECORDS SUMMARY | 2024-05-10 18:45 | XMS_ITS | Encounter Summary ---
Author Organization [facility] Address [address] [facility] [place] [address] Care Team Providers Care Cigar Making Supervisor Name Role Phone Isidro Heredia MD Unavailable [phone] Tomas Hyman MD Primary Care Provider [phone] Reason for Visit * Reason Onset Date Comments MEDICATION REFILL 04/14/2019 MEDICATION REFILL 11/12/2019 Encounter Details Date Type Department Care Team (Late st Contact Info) Description 04/14/2019 Refill [facility] Medical [facility] - Rheumatology [address] [place] [address] Isidro Heredia MD [address] [place] [address] [phone] MEDICATION REFILL; MEDICATION REFILL Social History Tobacco [...] Peters - 04/15/2019 8:33 AM CST [place]:01/08/19 GER CLINICAL RESEARCH documented in this encounter Plan of Treatment Upcoming Encounters Date Type Department Care Team (Late st Contact Info) Description 06/03/2024 1:00 PM MANAGER CLINICAL RESEARCH Appointment [facility] - Rheumatology [address] [place] [place] [address] [phone] 06/03/2024 2:00 PM MANAGER CLINICAL RESEARCH Office Visit [facility] - Rheumatology [address] [place] [address] [phone] Gloria Smith MD [address] [place] [phone] documented as of this encounter Visit Diagnoses Not on filedocumented in this encounter Care Teams Cigar Making Supervisor Relationship Specialty Start Date End Date Tomas Hyman MD [address] [facility] [address] [place] [address] PCP - General Family Medicine 09/05/18 Isidro Heredia MD Rheumatology 02/09/11 documented as of this encounter
--- OUTSIDE RECORDS SUMMARY | 2024-05-10 18:45 | XMS_ITS | Encounter Summary ---
Author Organization [facility] Address [address] [facility] [place] [address] Care Team Providers Care Edge Trimmer Name Role Phone Isidro Heredia MD Unavailable [phone] Tomas Hyman MD Primary Care Provider [phone] Encounter Details Date Type Department Care Team [...] Info) Description 06/03/2024 1:00 PM STUDENT DEVELOPMENT ADVISOR Appointment [facility] - Rheumatology [address] [place] [address] 06/03/2024 2:00 PM STUDENT DEVELOPMENT ADVISOR Office Visit [facility] - Rheumatology [address] [place] [place] [address] Gloria Smith MD [address] [place] [phone] documented as of this encounter Visit Diagnoses Not on filedocumented in this encounter Care Teams Edge Trimmer Relationship Specialty Start Date End Date Tomas Hyman MD [address] [facility] [address] [place] [address] PCP - General Family Medicine 09/05/18 Isidro Heredia MD Rheumatology 02/09/11 documented as of this encounter
--- OUTSIDE RECORDS SUMMARY | 2024-05-10 18:45 | XMS_ITS | Encounter Summary ---
Author Organization [facility] Address [address] [place] [address] Care Team Providers Care Sales And Leasing Agent Name Role Phone Isidro Heredia MD Unavailable [phone] Tomas Hyman MD Primary Care Provider [phone] Encounter Details Date Type Department Care Team (Latest Contact Info) Description 10/28/2018 11:53 AM CDT - 10/28/2018 11:54 AM T Hospital Encounter [facility] Pain Care [address] [place] [address] [place] [address] [place] [address] Discharge Disposition: Home or Self Care Social [...] 1 (one) tablet by mouth at bedtime dnsgxjpvadq-wkpl-rsa ysorb, PF, 0.5-1-0.5 % SOLN Instill 1 [...] st Contact Info) Description 06/03/2024 1:00 PM SHELL PRESS OPERATOR Appointment [facility] - Rheumatology [address] [place] [address] 06/03/2024 2:00 PM SHELL PRESS OPERATOR Office Visit [facility] - Rheumatology [address] [place] [address] Gloria Smith MD [address] [place] [phone] documented as of this encounter Visit Diagnoses Not on filedocumented in this encounter Care Teams Sales And Leasing Agent Relationship Specialty Start Date End Date Tomas Hyman MD [address] [facility] [address] [place] [address] PCP - General Family Medicine 09/05/18 Isidro Heredia MD Rheumatology 02/09/11 documented as of this encounter
--- OUTSIDE RECORDS SUMMARY | 2024-05-10 18:45 | XMS_ITS | Encounter Summary ---
Author Organization [facility] Address [address] [place] [address] Care Team Providers Care Library Helper Name Role Phone Isidro Heredia MD Unavailable [phone] Tomas Hyman MD Primary Care Provider [phone] Encounter Details Date Type Department Care Team (Late Contact Info) Description 11/08/2018 Orders Only [facility] - Rheumatology [address] [place] [address] Isidro Heredia MD [address] [place] [address] Encounter for long-term (current) use of [...] (Late Contact Info) Description 06/03/2024 1:00 PM VOCATIONAL COORDINATOR Appointment [facility] - Rheumatology [address] [place] [address] 06/03/2024 2:00 PM VOCATIONAL COORDINATOR Office Visit [facility] Rheumatology [address] [place] [address] Gloria Smith MD [address] [place], [place] [address], [place] [address] documented as of this encounter Visit Diagnoses Diagnosis Encounter for long-term (current) use of medications Encounter for long-term (current) use of other medications documented in this encounter Care Teams Library Helper Relationship Specialty Start Date End Date Tomas Hyman MD [address] [facility] [address] [place] [address] PCP - General Family Medicine 09/05/18 Isidro Heredia MD Rheumatology 02/09/11 documented as of this encounter
--- OUTSIDE RECORDS SUMMARY | 2024-05-10 18:45 | XMS_ITS | Encounter Summary ---
Author Organization [facility] Address [address] [facility] [place] [address] Care Team Providers Care Buyer Tobacco Head Name Role Phone Isidro Heredia MD Unavailable [phone] Tomas Hyman MD Primary Care Provider [phone] Encounter Details Date Type Department Care Team [...] st Contact Info) Description 06/03/2024 1:00 PM DECORATION CHECKER Appointment [facility] - Rheumatology [address] [place] [address] 06/03/2024 2:00 PM DECORATION CHECKER Office Visit [facility] - Rheumatology [address] [place] [address] Gloria Smith MD [address] [place] [phone] documented as of this encounter Visit Diagnoses Not on filedocumented in this encounter Care Teams Buyer Tobacco Head Relationship Specialty Start Date End Date Tomas Hyman MD [address] [facility] [address] [place] [address] PCP - General Family Medicine 09/05/18 Isidro Heredia MD Rheumatology 02/09/11 documented as of this encounter
--- OUTSIDE RECORDS SUMMARY | 2024-05-10 18:45 | XMS_ITS | Encounter Summary ---
Author Organization [facility] Address [address] [facility] [place] [address] Care Team Providers Care Board Handler Name Role Phone Isidro Heredia MD Unavailable [phone] Tomas Hyman MD Primary Care Provider [phone] Encounter Details Date Type Department Care Team [...] Contact Info) Description 06/03/2024 1:00 PM AGRICULTURAL COMMODITIES GRADER Appointment [facility] - Rheumatology [address] [place] [address] 06/03/2024 2:00 PM AGRICULTURAL COMMODITIES GRADER Office Visit [facility] - Rheumatology [address] [place] [address] Gloria Smith MD [address] [place] [phone] documented as of this encounter Visit Diagnoses Not on filedocumented in this encounter Care Teams Board Handler Relationship Specialty Start Date End Date Tomas Hyman MD [address] [facility] [address] [place] [address] PCP - General Family Medicine 09/05/18 Isidro Heredia MD Rheumatology 02/09/11 documented as of this encounter
--- OUTSIDE RECORDS SUMMARY | 2024-05-10 18:46 | XMS_ITS | Encounter Summary ---
Author Organization [facility] Address [address] [facility] [place] [address] Care Team Providers Care Radio Frequency Design Engineer Name Role Phone Isidro Heredia MD Unavailable [phone] Tomas Hyman MD Primary Care Provider Reason for Visit * Reason Comments Follow-up Encounter Details Date Type Department Care Team (Late st Contact Info) Description 01/04/2017 2:30 PM CDT Office Visit [facility] - Rheumatology [address] [place] [address] Isidro Heredia MD [address] [place] [address] Chronic right-sided low back pain with [...] 9:10 AM CDT Corrected E/M code from 37102 (new patient) to 50952 (established patient) per chart documentations * Isidro [...] 1 Tab by mouth once daily ??? Cwuhbbhhkoi-Cwjndwofs-Xyc C-Mn (GLUCOSAMINE CHONDR 1500 COMPLX PO) Take [...] Contact Info) Description 06/03/2024 1:00 PM THERAPEUTIC RADIOLOGIST Appointment [facility] - Rheumatology [address] [place] [address] 06/03/2024 2:00 PM THERAPEUTIC RADIOLOGIST Office Visit [facility] - Rheumatology [address] [place] [address] Gloria Smith MD [address] [place] [phone] documented as of this encounter Visit [...] Shoulder documented in this encounter Care Teams Radio Frequency Design Engineer Relationship Specialty Start Date End Date Tomas Hyman MD [address] [facility] [address] [place] [address] PCP - General Family Medicine 12/31/13 05/09/18 Isidro Heredia MD Rheumatology 02/09/11 documented as of this encounter
--- OUTSIDE RECORDS SUMMARY | 2024-05-10 18:46 | XMS_ITS | Encounter Summary ---
Author Organization [facility] Address [address] [facility] [place] [address] Care Team Providers Care Cotton Dispatcher Name Role Phone Isidro Heredia MD Unavailable [phone] Tomas Hyman MD Primary Care Provider [phone] Reason for Visit * Reason Onset Date Comments MEDICATION REFILL 11/21/2017 Encounter Details Date Type Department Care Team (Late Contact Info) Description 11/21/2017 Refill [facility] - Rheumatology [address] [place] [address] Isidro Heredia MD [address] [place] [address] MEDICATION REFILL Social History Tobacco Use [...] (Late Contact Info) Description 06/03/2024 1:00 PM MACHINIST SUPERVISOR Appointment [facility] - Rheumatology [address] [place] [address] 06/03/2024 2:00 PM MACHINIST SUPERVISOR Office Visit [facility] - Rheumatology [address] [place] [address] Gloria Smith MD [address] [place] [address] documented as of this encounter Visit Diagnoses Not on filedocumented in this encounter Care Teams Cotton Dispatcher Relationship Specialty Start Date End Date Tomas Hyman MD [address] [place] [address] PCP - General Family Medicine 12/31/13 05/09/18 Isidro Heredia MD Rheumatology 02/09/11 documented as of this encounter
--- OUTSIDE RECORDS SUMMARY | 2024-05-10 18:46 | XMS_ITS | Encounter Summary ---
Author Organization [facility] Address [address] [facility] [place] [address] Care Team Providers Care Industrial Service Technician Name Role Phone Isidro Heredia MD Unavailable [phone] Tomas Hyman MD Primary Care Provider [phone] Reason for Visit * Reason Comments Rheumatoid Arthritis General dizzy, headaches, ph legm, feels weak and run down Encounter Details Date Type Department Care Team (Late st Contact Info) Description 06/14/2017 1:30 PM NEWSPAPER EDITOR Office Visit [facility] Medical [facility] - Rheumatology [address] [place] [address] Isidro Heredia MD [address] [place] [address] Rheumatoid arthritis of multiple sites with [...] Comments Blood Pressure 148/98 06/14/2017 1:36 PM NEWSPAPER EDITOR Pulse 114 06/14/2017 1:36 PM NEWSPAPER EDITOR Temperature - - Respiratory Rate - - Oxygen Saturation - - Inhaled Oxygen Concentration - - Weight 106.1 kg (234 lb) 06/14/2017 1:36 PM NEWSPAPER EDITOR Height - - Body Mass Index 33.58 [...] 1 Tab by mouth once daily ??? Rcuwhapdnmr-Ospudctak-Tgw C-Mn (GLUCOSAMINE CHONDR 1500 COMPLX PO) Take [...] Follow up in office in 6 weeks PAPER EDITOR documented in this encounter Plan of Treatment Upcoming Encounters Date Type Department Care Team (Late st Contact Info) Description 06/03/2024 1:00 PM NEWSPAPER EDITOR Appointment [facility] - Rheumatology [address] [place] [address] 06/03/2024 2:00 PM NEWSPAPER EDITOR Office Visit [facility] - Rheumatology [address] [place] [address] Gloria Smith MD [address] [place] [phone] documented as of this encounter Visit Diagnoses Diagnosis Rheumatoid arthritis of multiple sites with negative rheumatoid factor (HCC)- Primary Chronic pain syndrome documented in this encounter Care Teams Industrial Service Technician Relationship Specialty Start Date End Date Tomas Hyman MD [address] [place] [address] PCP - General Family Medicine 12/31/13 05/09/18 Isidro Heredia MD Rheumatology 02/09/11 documented as of this encounter
--- OUTSIDE RECORDS SUMMARY | 2024-05-10 18:46 | XMS_ITS | Encounter Summary ---
Author Organization [facility] Address [address] [place] [address] Care Team Providers Care Information Assurance Officer Name Role Phone Isidro Heredia MD Unavailable [phone] Tomas Hyman MD Primary Care Provider [phone] Reason for Visit * Reason Onset Date Comments MEDICATION REFILL 11/29/2016 Encounter Details Date Type Department Care Team (Late st Contact Info) Description 11/29/2016 Refill [facility] Medical [facility] - Rheumatology [address] [place] [address] Isidro Heredia MD [address] [place] [address] MEDICATION REFILL Social History Tobacco Use [...] patient that his prescription is ready at [facility] tape sewer for case picker. I have left several messages but cannot [...] for Pain Dx: 714.0 RA patient states [facility] will not except escribe for pain med . He will have to case picker a paper form please advise documented in this encounter Plan of Treatment Upcoming Encounters Date Type Department Care Team (Late st Contact Info) Description 06/03/2024 1:00 PM CLERICAL AIDE TEACHER Appointment [facility] - Rheumatology [address] [place] [address] [phone] 06/03/2024 2:00 PM CLERICAL AIDE TEACHER Office Visit [facility] - Rheumatology [address] [place] [address] [phone] Gloria Smith MD [address] [place] [phone] documented as of this encounter Visit Diagnoses Not on filedocumented in this encounter Care Teams Information Assurance Officer Relationship Specialty Start Date End Date Tomas Hyman MD [address] [facility] [address] [place] [address] PCP - General Family Medicine 12/31/13 05/09/18 Isidro Heredia MD Rheumatology 02/09/11 documented as of this encounter
--- OUTSIDE RECORDS SUMMARY | 2024-05-10 18:46 | XMS_ITS | Encounter Summary ---
Author Organization [facility] Address [address] [facility] [place] [address] Care Team Providers Care Ground Support Equipment Assembler Name Role Phone Isidro Heredia MD Unavailable [phone] Tomas Hyman MD Primary Care Provider [phone] Encounter Details Date Type Department Care Team (Late Contact Info) Description 10/19/2017 Orders Only [facility] - Rheumatology [address] [place] [address] Isidro Heredia MD [address] [place] [address] Rheumatoid arthritis of multiple sites with [...] Contact Info) Description 06/03/2024 1:00 PM SENIOR ACCOUNTANT CPA Appointment [facility] - Rheumatology [address] [place] [address] 06/03/2024 2:00 PM SENIOR ACCOUNTANT CPA Office Visit [facility] Rheumatology [address] [place] [address] Gloria Smith MD [address] [place] [address], [place] [address] documented as of this encounter Procedures Procedure [...] PM CDT 10/24/2017 Narrative Resulting Agency Comment [facility] [address] [facility] ??[facility] [phone] Isidro Heredia MD LAB - HEMATOLOGY OR DERABLES [facility] INSURANCE BILL [address] [place] [address] * (ABNORMAL) COMPREHENSIVE METABOLIC PANEL (10/24/2017 1:30 [...] CDT 10/24/2017 Narrative Resulting Agency Comment [facility] [place] [address] [facility] ??[facility] [phone] Isidro Heredia MD LAB - CHEMISTRY ORD ERABLES [facility] INSURANCE BILL [address] [place] [address] * (ABNORMAL) CBC W AUTO DIFFERENTIAL (10/24/2017 [...] CDT 10/24/2017 Narrative Resulting Agency Comment [facility] [address] ??[facility] [phone] Isidro Heredia MD LAB - HEMATOLOGY OR DERABLES Performing Organization Address City/State/[facility] Co de Phone Number [facility] INSURANCE BILL [address] [place] [address] documented in this encounter Visit Diagnoses Diagnosis Rheumatoid arthritis 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
--- OUTSIDE RECORDS SUMMARY | 2024-05-10 18:46 | XMS_ITS | Encounter Summary ---
Author Organization [facility] Address [address] [facility] [place] [address] Care Team Providers Care Anode Machine Operator Name Role Phone Isidro Heredia MD Unavailable [phone] Tomas Hyman MD Primary Care Provider [phone] Reason for Visit * Treatment (Routine) - Closed Specialty Diagnoses / Procedures Referred By Lawrence shah Referred To Contact [place] [phone] [address] [facility] [address] [place] [address] Referral ID Status Reason Start Date Expiration Date Visits Re quested Visits Authorized [id number] Closed 12/21/2016 06/19/2017 1 3 Encounter Details Date Type Department Care Team (Latest Contact Info) Description 12/21/2016 10:12 AM CDT - 12/21/2016 10:14 AM T Hospital Encounter [facility] Health Pain Care [address] [place] [address] [place] [id number] [address] Discharge Disposition: Home or Self [...] 1 (one) tablet by mouth at bedtime Yrogcgxwbns-Frkbossaz-Y it C-Mn (GLUCOSAMINE CHONDR 1500 COMPLX PO) [...] st Contact Info) Description 06/03/2024 1:00 PM BAKELITE MOLDER Appointment [facility] - Rheumatology [address] [place] [address] [phone] 06/03/2024 2:00 PM BAKELITE MOLDER Office Visit [facility] - Rheumatology [address] [place] [address] [phone] Gloria Smith MD [address] [place] [phone] documented as of this encounter Visit Diagnoses Not on filedocumented in this encounter Care Teams Anode Machine Operator Relationship Specialty Start Date End Date Tomas Hyman MD [address] [facility] [address] [place] [address] PCP - General Family Medicine 12/31/13 05/09/18 Isidro Heredia MD Rheumatology 02/09/11 documented as of this encounter
--- OUTSIDE RECORDS SUMMARY | 2024-05-10 18:46 | XMS_ITS | Encounter Summary ---
Author Organization [facility] Address [address] [place] [address] Care Team Providers Care Jackspooler Name Role Phone Isidro Heredia MD Unavailable Tomas Hyman MD Primary Care Provider [phone] Encounter Details Date Type Department Care Team (Late st Contact Info) Description 04/03/2017 Orders Only [facility] Medical [facility] - Rheumatology [address] [place] [address] [phone] Isidro Heredia MD [address] [place] [address] Rheumatoid arthritis involving multiple sites, unspecified [...] 3:52 PM CST Sent via my chart ICE OPERATOR * Isidro Heredia MD - 04/08/2017 10:07 PM CST [place] ICE OPERATOR documented in this encounter Plan of Treatment Upcoming Encounters Date Type Department Care Team (Late st Contact Info) Description 06/03/2024 1:00 PM SERVICE OPERATOR Appointment [facility] - Rheumatology [address] [place] [address] [phone] 06/03/2024 2:00 PM SERVICE OPERATOR Office Visit [facility] - Rheumatology [address] [place] [address] Gloria Smith MD [address] [place] [phone] documented as of this encounter Procedures Procedure Name Priority Date/Time Associated Diagnosis Comments ERYTHROCYTE SEDIMENTATION RATE Routine 04/05/2017 2:30 PM SERVICE OPERATOR Rheumatoid arthritis involving multiple sites, unspecified rheumatoid factor presence CBC W AUTO DIFFERENTIAL Routine 04/05/2017 2:30 PM SERVICE OPERATOR Rheumatoid arthritis involving multiple sites, unspecified rheumatoid factor presence COMPREHENSIVE METABOLIC PANEL Routine 04/05/2017 2:30 PM SERVICE OPERATOR Rheumatoid arthritis involving multiple sites, unspecified rheumatoid factor presence documented in this encounter Results * ERYTHROCYTE SEDIMENTATION RATE (04/05/2017 2:30 PM SERVICE OPERATOR) Erythrocyte Sedimentation Rate Westergren 4 0 - 30 mm/hr [facility] INSURANCE BILL Blood BLOOD SPECIMEN / Unknown 04/05/2017 2:30 PM SERVICE OPERATOR 04/05/2017 Narrative Resulting Agency Comment [facility] [place] [address] [facility] ??[facility] [phone] Isidro Heredia MD LAB - HEMATOLOGY OR DERABLES [facility] INSURANCE BILL [address] [place] [address] * (ABNORMAL) COMPREHENSIVE METABOLIC PANEL (04/05/2017 2:30 PM SERVICE OPERATOR) Glucose 100(H) 65 - 99 mg/dL [...] BLOOD SPECIMEN / Unknown 04/05/2017 2:30 PM SERVICE OPERATOR 04/05/2017 Narrative Resulting Agency Comment [facility] ??[facility] [phone] Isidro Heredia MD LAB - CHEMISTRY ORD ERABLES [facility] INSURANCE BILL [address] [place] [address] * (ABNORMAL) CBC W AUTO DIFFERENTIAL (04/05/2017 2:30 PM SERVICE OPERATOR) WBC 6.9 3.4 - 10.8 x10E3/uL [...] BLOOD SPECIMEN / Unknown 04/05/2017 2:30 PM SERVICE OPERATOR 04/05/2017 Narrative Resulting Agency Comment [facility] [address] [place] [address] ??[facility] [phone] Isidro Heredia MD LAB - HEMATOLOGY OR DERABLES [facility] INSURANCE BILL [address] [place] [address] documented in this encounter Visit Diagnoses Diagnosis Rheumatoid arthritis involving multiple sites, unspecified rheumatoid factor presence (HCC)- Primary documented in this encounter Care Teams Jackspooler Relationship Specialty Start Date End Date Tomas Hyman MD [address] [place] [address] PCP - General Family Medicine 12/31/13 05/09/18 Isidro Heredia MD Rheumatology 02/09/11 documented as of this encounter
--- OUTSIDE RECORDS SUMMARY | 2024-05-10 18:46 | XMS_ITS | Encounter Summary ---
Author Organization [facility] Address [address] [place] [address] Care Team Providers Care Pipe Fitter Apprentice Name Role Phone Isidro Heredia MD Unavailable [phone] Tomas Hyman MD Primary Care Provider [phone] Reason for Visit * Reason Comments Rheumatoid Arthritis Encounter Details Date Type Department Care Team (Late st Contact Info) Description 10/24/2017 2:30 PM CDT Office Visit [facility] - Rheumatology [address] [place] [address] Isidro Heredia MD [address] [place] [address] Chronic right-sided low back pain with [...] Medication Side Effects none Walking trails in [place] BP Readings from Last 2 Encounters: 10/24/17 [...] 1 Tab by mouth once daily ??? Nmugzjmgjqz-Euipcdsfx-Qnu C-Mn (GLUCOSAMINE CHONDR 1500 COMPLX PO) Take [...] Contact Info) Description 06/03/2024 1:00 PM SUGAR PLANTATION MANAGER Appointment [facility] - Rheumatology [address] [place] [address] 06/03/2024 2:00 PM SUGAR PLANTATION MANAGER Office Visit [facility] - Rheumatology [address] [place] [address] Gloria Smith MD [address] [place] [phone] documented as of this encounter Visit Diagnoses Diagnosis Chronic right-sided low back pain with right-sided sciatica- Primary Rheumatoid arthritis of multiple sites with negative rheumatoid factor (HCC) Chronic pain syndrome documented in this encounter Care Teams Pipe Fitter Apprentice Relationship Specialty Start Date End Date Tomas Hyman MD [address] [facility] [address] [place] [address] PCP - General Family Medicine 12/31/13 05/09/18 Isidro Heredia MD Rheumatology 02/09/11 documented as of this encounter
--- OUTSIDE RECORDS SUMMARY | 2024-05-10 18:46 | XMS_ITS | Encounter Summary ---
Author Organization [facility] Address [address] [facility] [place] [address] Care Team Providers Care Spa Technician Name Role Phone Isidro Heredia MD Unavailable [phone] Tomas Hyman MD Primary Care Provider [phone] Reason for Visit * Treatment (Routine) - Closed Specialty Diagnoses / Procedures Referred By Lawrence shah Referred To Contact Infusion Therapy Nurse Diagnoses Rheumatoid arthritis without rheumatoid factor, multiple sites (HCC) Procedures RI INJECTION TOCILIZUMAB 1 MG Isidro Heredia MD [address] [place] [address] [address] Referral ID Status Reason Start Date Expiration Date Visits Re quested Visits Authorized [id number] Closed 08/07/2016 04/29/2017 1 12 Encounter Details Date Type Department Care Team (Late st Contact Info) Description 03/08/2017 1:30 PM SLEEP TECH - 03/08/2017 3:55 PM SLEEP TECH Hospital Encounter [facility] Medical [facility] - Rheumatology [address] [place] [address] Isidro Heredia MD [address] [place] [address] Discharge Disposition: Home or Self [...] Comments Blood Pressure 128/74 03/08/2017 1:59 PM SLEEP TECH Pulse 79 03/08/2017 1:59 PM SLEEP TECH Temperature 36.7 ??C (98.1 ??F) 03/08/2017 1:59 PM CS T Respiratory Rate 16 03/08/2017 1:59 PM SLEEP TECH Oxygen Saturation - - Inhaled Oxygen Concentration - - Weight 109.8 kg (242 lb) 03/08/2017 1:59 PM SLEEP TECH Height - - Body Mass Index 34.72 01/11/2016 3:12 PM CDT documented in this encounter Discharge Instructions * Discharge Instructions* Jody Sahu RN - 03/08/2017 2:04 PM SLEEP TECH NE Rheumatology Post Infusion instructions You have [...] Sunday through 01-02 call the office at [phone] After hours or on the weekend call the exchange at [phone] If you have had lab work done [...] Hospital as your provider. Jody Sahu RN P TECH documented in this encounter Medications at [...] - 03/08/2017 2:26 PM CST JOSE Deng [id number] 03/08/2017 Diagnosis: Rheumatoid arthritis without rheumatoid factor, [...] Next treatment? 4 weeks Jody Sahu RN P TECH documented in this encounter Plan of Treatment Upcoming Encounters Date Type Department Care Team (Late st Contact Info) Description 06/03/2024 1:00 PM SLEEP TECH Appointment [facility] - Rheumatology [address] [place] [address] 06/03/2024 2:00 PM SLEEP TECH Office Visit [facility] - Rheumatology [address] [place] [address] Gloria Smith MD [address] [place] [phone] documented as of this encounter Visit Diagnoses [...] RT $ New Bag/Syringe 03/08/2017 2:15 PM SLEEP TECH 800 mg 100 mL/hr documented in this encounter Care Teams Spa Technician Relationship Specialty Start Date End Date Tomas Hyman MD [address] [facility] [address] [place] [address] PCP - General Family Medicine 12/31/13 05/09/18 Isidro Heredia MD Rheumatology 02/09/11 documented as of this encounter
--- OUTSIDE RECORDS SUMMARY | 2024-05-10 18:46 | XMS_ITS | Encounter Summary ---
Author Organization [facility] Address [address] [facility] [place] [address] Care Team Providers Care Fisher Reef Net Name Role Phone Isidro Heredia MD Unavailable [phone] Tomas Hyman MD Primary Care Provider [phone] Reason for Visit * Treatment (Routine) - Closed Specialty Diagnoses / Procedures Referred By Lawrence shah Referred To Contact [place] [phone] [address] [facility] [address] [place] [address] Referral ID Status Reason Start Date Expiration Date Visits Re quested Visits Authorized [id number] Closed 12/21/2016 06/19/2017 1 3 Encounter Details Date Type Department Care Team (Latest Contact Info) Description 02/22/2017 10:11 AM CDT - 02/22/2017 10:12 AM CDT Hospital Encounter [facility] Health Pain Care [address] [place] [address] [place] [id number] [address] Discharge Disposition: Home or [...] Contact Info) Description 06/03/2024 1:00 PM HEEL SEAT SANDER Appointment [facility] - Rheumatology [address] [place] [address] [phone] 06/03/2024 2:00 PM HEEL SEAT SANDER Office Visit [facility] - Rheumatology [address] [place] [address] Gloria Smith MD [address] [place] [place] [phone] documented as of this encounter Visit Diagnoses Not on filedocumented in this encounter Care Teams Fisher Reef Net Relationship Specialty Start Date End Date Tomas Hyman MD [address] [facility] [address] [place] [address] PCP - General Family Medicine 12/31/13 05/09/18 Isidro Heredia MD Rheumatology 02/09/11 documented as of this encounter
--- OUTSIDE RECORDS SUMMARY | 2024-05-10 18:46 | XMS_ITS | Encounter Summary ---
Author Organization [facility] Address [address] [facility] [place] [address] Care Team Providers Care Box Bender Name Role Phone Isidro Heredia MD Unavailable [phone] Tomas Hyman MD Primary Care Provider [phone] Reason for Visit * Reason Comments Refill Request Encounter Details Date Type Department Care Team (Late Contact Info) Description 03/19/2017 Refill [facility] - Rheumatology [address] [place] [address] Isidro Heredia MD [address] [place] [address] Refill Request Social History Tobacco Use [...] Contact Info) Description 06/03/2024 1:00 PM HAND I TUBE BENDER Appointment [facility] - Rheumatology [address] [place] [address] 06/03/2024 2:00 PM HAND I TUBE BENDER Office Visit [facility] Rheumatology [address] [place] [address] Gloria Smith MD [address] [place], [place] [address] [address] documented as of this encounter Visit Diagnoses Not on filedocumented in this encounter Care Teams Box Bender Relationship Specialty Start Date End Date Tomas Hyman MD [address] [place] [address] PCP - General Family Medicine 12/31/13 05/09/18 Isidro Heredia MD Rheumatology 02/09/11 documented as of this encounter
--- OUTSIDE RECORDS SUMMARY | 2024-05-10 18:46 | XMS_ITS | Encounter Summary ---
Author Organization [facility] Address [address] [place] [address] Care Team Providers Care Bridal Gown Fitter Name Role Phone Isidro Heredia MD Unavailable [phone] Tomas Hyman MD Primary Care Provider [phone] Encounter Details Date Type Department Care Team (Late Contact Info) Description 09/03/2017 Orders Only [facility] - Rheumatology [address] [place] [address] Isidro Heredia MD [address] [place] [address] Social History Tobacco Use Types Packs/Day [...] Contact Info) Description 06/03/2024 1:00 PM CORPORATE RELATIONS MANAGER Appointment [facility] - Rheumatology [address] [place] [address] 06/03/2024 2:00 PM CORPORATE RELATIONS MANAGER Office Visit [facility] - Rheumatology [address] [place] [address] Gloria Smith MD [address] [place] [phone] documented as of this encounter Visit Diagnoses Not on filedocumented in this encounter Care Teams Bridal Gown Fitter Relationship Specialty Start Date End Date Tomas Hyman MD [address] [facility] [address] [place] [address] PCP - General Family Medicine 12/31/13 05/09/18 Isidro Heredia MD Rheumatology 02/09/11 documented as of this encounter
--- OUTSIDE RECORDS SUMMARY | 2024-05-10 18:46 | XMS_ITS | Encounter Summary ---
Author Organization [facility] Address [address] [facility] [place] [address] Care Team Providers Care Chocolate Temperer Name Role Phone Isidro Heredia MD Unavailable [phone] Encounter Details Date Type Department Care Team (Late Contact Info) Description 05/13/2018 Orders Only [facility] - Rheumatology [address] [place] [address] Isidro Heredia MD [address] [place] [address] Rheumatoid arthritis of multiple sites with [...] (Late Contact Info) Description 06/03/2024 1:00 PM CREDIT CASHIER Appointment [facility] - Rheumatology [address] [place] [address] 06/03/2024 2:00 PM CREDIT CASHIER Office Visit [facility] - Rheumatology [address] [place] [address] Gloria Smith MD [address] [place] [address] [place] [phone] documented as of this encounter Procedures Procedure [...] CDT 07/11/2018 Narrative Resulting Agency Comment [facility] [address] [facility] ??[facility] [phone] Isidro Heredia MD LAB - HEMATOLOGY OR DERABLES [facility] INSURANCE BILL [address] [place] [address] * (ABNORMAL) COMPREHENSIVE METABOLIC PANEL (07/11/2018 9:30 [...] CDT 07/11/2018 Narrative Resulting Agency Comment [facility] [address] ??[facility] [phone] Isidro Heredia MD LAB - CHEMISTRY ORD ERABLES [facility] INSURANCE BILL [address] [place] [address] * (ABNORMAL) CBC WITH DIFFERENTIAL (07/11/2018 9:30 [...] CDT 07/11/2018 Narrative Resulting Agency Comment [facility] [address] ??[facility] [phone] Isidro Heredia MD LAB - HEMATOLOGY OR DERABLES [facility] INSURANCE BILL [address] [place] [address] documented in this encounter Visit Diagnoses Diagnosis Rheumatoid arthritis of multiple sites with negative rheumatoid factor (HCC)- Primary documented in this encounter Care Teams Chocolate Temperer Relationship Specialty Start Date End Date Isidro Heredia MD Rheumatology 02/09/11 documented as of this encounter
--- OUTSIDE RECORDS SUMMARY | 2024-05-10 18:46 | XMS_ITS | Encounter Summary ---
Author Organization [facility] Address [address] [facility] [place] [address] Care Team Providers Care Algebra Tutor Name Role Phone Isidro Heredia MD Unavailable [phone] Tomas Hyman MD Primary Care Provider [phone] Reason for Visit * Reason Comments Rheumatoid Arthritis Encounter Details Date Type Department Care Team (Late st Contact Info) Description 08/01/2017 2:15 PM CDT Office Visit [facility] - Rheumatology [address] [place] [address] Isidro Heredia MD [address] [place] [address] Abnormal LFTs (Primary Dx); Chronic right-sided [...] 1 Tab by mouth once daily ??? Yamdmztmqkc-Vzqjtzrmg-Hqg C-Mn (GLUCOSAMINE CHONDR 1500 COMPLX PO) Take [...] cc's of tac with 1 cc 2% inydq7vjus were injected in the right shoulder Triceps tendon . 0 cc's of synovial fluid were aspirated. Patient tolerated procedure well without complications. Plan: Plan Orders Placed This Encounter ??? OK DRAIN/INJECT LARGE JOINT/BURSA ??? oxyCODONE-acetaminophen (PERCOCET) 5-325 [...] st Contact Info) Description 06/03/2024 1:00 PM AUTOMATIC THREAD WINDER Appointment [facility] - Rheumatology [address] [place] [address] [phone] 06/03/2024 2:00 PM AUTOMATIC THREAD WINDER Office Visit [facility] - Rheumatology [address] [place] [address] Gloria Smith MD [address] [place] [phone] documented as of this encounter Visit [...] Shoulder documented in this encounter Care Teams Algebra Tutor Relationship Specialty Start Date End Date Tomas Hyman MD [address] [place] [address] PCP - General Family Medicine 12/31/13 05/09/18 Isidro Heredia MD Rheumatology 02/09/11 documented as of this encounter
--- OUTSIDE RECORDS SUMMARY | 2024-05-10 18:46 | XMS_ITS | Encounter Summary ---
Author Organization [facility] Address [address] [place] [address] Care Team Providers Care Assembler Cards And Announcements Name Role Phone Isidro Heredia MD Unavailable [phone] Tomas Hyman MD Primary Care Provider [phone] Reason for Visit * Reason Comments Follow-up Encounter Details Date Type Department Care Team (Late st Contact Info) Description 03/08/2017 2:15 PM STRIKE PLANNING APPLICATIONS Office Visit [facility] - Rheumatology [address] [place] [address] [phone] Isidro Heredia MD [address] [place] [address] Chronic right-sided low back pain with [...] Comments Blood Pressure 128/74 03/08/2017 2:37 PM STRIKE PLANNING APPLICATIONS Pulse 79 03/08/2017 2:37 PM STRIKE PLANNING APPLICATIONS Temperature - - Respiratory Rate - - Oxygen Saturation - - Inhaled Oxygen Concentration - - Weight 109.8 kg (242 lb) 03/08/2017 2:37 PM STRIKE PLANNING APPLICATIONS Height - - Body Mass Index 34.72 [...] 1 Tab by mouth once daily ??? Kdxyosywqal-Rjdagbchm-Oiq C-Mn (GLUCOSAMINE CHONDR 1500 COMPLX PO) Take [...] Follow up in office in 4 weeks KE PLANNING APPLICATIONS documented in this encounter Plan of Treatment Upcoming Encounters Date Type Department Care Team (Late st Contact Info) Description 06/03/2024 1:00 PM STRIKE PLANNING APPLICATIONS Appointment [facility] - Rheumatology [address] [place] [address] 06/03/2024 2:00 PM STRIKE PLANNING APPLICATIONS Office Visit [facility] - Rheumatology [address] [place] [address] Gloria Smith MD [address] [place] [address] [place] [phone] documented as of this encounter Results * XR ANKLE BILAT 2 VIEWS (03/08/2017 4:07 PM STRIKE PLANNING APPLICATIONS) Anatomical Region Laterality Modality Ankle / Foot, Lower Extremity Ra diographic Imaging 03/08/2017 4:14 PM STRIKE PLANNING APPLICATIONS Impressions 03/08/2017 4:15 PM STRIKE PLANNING APPLICATIONS No fracture. Narrative 03/08/2017 4:15 PM STRIKE PLANNING APPLICATIONS Bilateral ankles 2 views INDICATION: Ankle pain [...] at 1715 $ Given 03/08/2017 4:47 PM STRIKE PLANNING APPLICATIONS 1 mL Right Shoulder triamcinolone acetonide (KENALOG-40) injection 80 mg 80 mg, Intra-articular, ONCE, 1 dose, On Gabriela 03/08/17 at 1715, Shake well before using. $ Given 03/08/2017 4:48 PM STRIKE PLANNING APPLICATIONS 80 mg Right Shoulder documented in this encounter Care Teams Assembler Cards And Announcements Relationship Specialty Start Date End Date Tomas Hyman MD [address] [place] [address] PCP - General Family Medicine 12/31/13 05/09/18 Isidro Heredia MD Rheumatology 02/09/11 documented as of this encounter
--- OUTSIDE RECORDS SUMMARY | 2024-05-10 18:46 | XMS_ITS | Encounter Summary ---
Author Organization [facility] Address [address] [facility] [place] [address] Care Team Providers Care Archaeologist Name Role Phone Isidro Heredia MD Unavailable [phone] Tomas Hyman MD Primary Care Provider [phone] Reason for Visit * Treatment (Routine) - Closed Specialty Diagnoses / Procedures Referred By Lawrence shah Referred To Contact Infusion Therapy Nurse Diagnoses Rheumatoid arthritis without rheumatoid factor, multiple sites (HCC) Procedures [place] INJECTION TOCILIZUMAB 1 MG Isidro Heredia MD [address] [facility] [place] [place] [address] [address] Referral ID Status Reason Start Date Expiration Date Visits Re quested Visits Authorized [id number] Closed 05/11/2017 04/29/2018 1 13 Encounter Details Date Type Department Care Team (Late st Contact Info) Description 09/03/2017 1:47 PM CDT - 09/03/2017 11:59 PM CDT Hospital Encounter [facility] - Rheumatology [address] [place] [address] Isidro Heredia MD [address] [facility] [place] [address] Discharge Disposition: Home or [...] Sahu RN - 09/03/2017 2:23 PM CDT [place] Rheumatology Post Infusion instructions [...] Sunday through 01-02 call the office at [phone] After hours or on the weekend call the exchange at [phone] If you have had lab work done [...] 09/03/2017 2:38 PM CDT JOSE Allred Deng [id number] 09/03/2017 Diagnosis: Rheumatoid arthritis without rheumatoid factor, [...] Contact Info) Description 06/03/2024 1:00 PM SUPERVISOR INVENTORY MERCHANDISING Appointment [facility] - Rheumatology [address] [place] [address] [phone] 06/03/2024 2:00 PM SUPERVISOR INVENTORY MERCHANDISING Office Visit [facility] - Rheumatology [address] [place] [address] Gloria Smith MD [address] [place] [phone] documented as of this encounter Visit Diagnoses [...] mL/hr documented in this encounter Care Teams Archaeologist Relationship Specialty Start Date End Date Tomas Hyman MD [address] [facility] [address] [place] [address] PCP - General Family Medicine 12/31/13 05/09/18 Isidro Heredia MD Rheumatology 02/09/11 documented as of this encounter
--- OUTSIDE RECORDS SUMMARY | 2024-05-10 18:46 | XMS_ITS | Encounter Summary ---
Author Organization [facility] Address [address] [facility] [address] Care Team Providers Care Transcription Typist Name Role Phone Isidro Heredia MD Unavailable [phone] Tomas Hyman MD Primary Care Provider [phone] Reason for Visit * Reason Comments Refill Request Encounter Details Date Type Department Care Team (Late Contact Info) Description 04/21/2017 Refill [facility] - Rheumatology [address] [place] [address] Isidro Heredia MD [address] [place] [address] Refill Request Social History Tobacco Use [...] (Late Contact Info) Description 06/03/2024 1:00 PM EPIDEMIOLOGY INTERNSHIP Appointment [facility] - Rheumatology [address] [place] [address] 06/03/2024 2:00 PM EPIDEMIOLOGY INTERNSHIP Office Visit [facility] Rheumatology [address] [place] [address] Gloria Smith MD [address] [place] [address], [place] [address] documented as of this encounter Visit Diagnoses Not on filedocumented in this encounter Care Teams Transcription Typist Relationship Specialty Start Date End Date Tomas Hyman MD [address] [place] [address] PCP - General Family Medicine 12/31/13 05/09/18 Isidro Heredia MD Rheumatology 02/09/11 documented as of this encounter
--- OUTSIDE RECORDS SUMMARY | 2024-05-10 18:46 | XMS_ITS | Encounter Summary ---
Author Organization [facility] Address [address] [place] [address] Care Team Providers Care Building Inspection Engineer Name Role Phone Isidro Heredia MD Unavailable [phone] Tomas Hyman MD Primary Care Provider [phone] Reason for Visit * Reason Onset Date Comments MEDICATION REFILL 11/24/2016 Encounter Details Date Type Department Care Team (Late Contact Info) Description 11/24/2016 Refill [facility] - Rheumatology [address] [place] [address] Isidro Heredia MD [address] [place] [address] MEDICATION REFILL Social History Tobacco Use [...] (Late Contact Info) Description 06/03/2024 1:00 PM SOLUTIONS ANALYST Appointment [facility] - Rheumatology [address] [place] [address] 06/03/2024 2:00 PM SOLUTIONS ANALYST Office Visit [facility] - Rheumatology [address] [place] [address] Gloria Smith MD [address] [place] [address] documented as of this encounter Visit Diagnoses Not on filedocumented in this encounter Care Teams Building Inspection Engineer Relationship Specialty Start Date End Date Tomas Hyman MD [address] [place] [address] PCP - General Family Medicine 12/31/13 05/09/18 Isidro Heredia MD Rheumatology 02/09/11 documented as of this encounter
--- OUTSIDE RECORDS SUMMARY | 2024-05-10 18:46 | XMS_ITS | Encounter Summary ---
Author Organization [facility] Address [address] [facility] [place] [address] Care Team Providers Care Senior Medical Transcriptionist Name Role Phone Isidro Heredia MD Unavailable [phone] Tomas Hyman MD Primary Care Provider [phone] Reason for Visit * Treatment (Routine) - Closed Specialty Diagnoses / Procedures Referred By Lawrence shah Referred To Contact Infusion Therapy Nurse Diagnoses Rheumatoid arthritis without rheumatoid factor, multiple sites (HCC) Procedures [place] INJECTION TOCILIZUMAB 1 MG Isidro Heredia MD [address] [facility] [address] [address] Referral ID Status Reason Start Date Expiration Date Visits Re quested Visits Authorized [id number] Closed 05/11/2017 04/29/2018 1 13 Encounter Details Date Type Department Care Team (Late st Contact Info) Description 11/21/2017 1:30 PM CDT - 11/21/2017 11:59 PM CDT Hospital Encounter [facility] Medical [facility] - Rheumatology [address] [place] [address] Isidro Heredia MD [address] [facility] [place] [address] Discharge Disposition: Home or [...] Sahu RN - 11/21/2017 2:11 PM CDT [place] Rheumatology Post Infusion instructions [...] Sunday through 01-02 call the office at [phone] After hours or on the weekend call the exchange at [phone] If you have had lab work done [...] - 11/21/2017 2:14 PM CDT JOSE Deng [id number] 11/21/2017 Diagnosis: Rheumatoid arthritis without rheumatoid factor, [...] Contact Info) Description 06/03/2024 1:00 PM RN WOUND Appointment [facility] - Rheumatology [address] [place] [address] 06/03/2024 2:00 PM RN WOUND Office Visit [facility] - Rheumatology [address] [place] [address] Gloria Smith MD [address] [place] [phone] documented as of this encounter Visit Diagnoses [...] documented in this encounter Care Teams Senior Medical Transcriptionist Relationship Specialty Start Date End Date Tomas Hyman MD [address] [facility] [address] [place] [address] PCP - General Family Medicine 12/31/13 05/09/18 Isidro Heredia MD Rheumatology 02/09/11 documented as of this encounter
--- OUTSIDE RECORDS SUMMARY | 2024-05-10 18:46 | XMS_ITS | Encounter Summary ---
Author Organization [facility] Address [address] [facility] [place] [address] Care Team Providers Care Station Installer Name Role Phone Isidro Heredia MD Unavailable [phone] Tomas Hyman MD Primary Care Provider [phone] Encounter Details Date Type Department Care Team (Late st Contact Info) Description 01/22/2017 Orders Only [facility] Medical [facility] - Rheumatology [address] [place] [address] [phone] Isidro Heredia MD [address] [place] [address] Encounter for long-term (current) use of [...] CDT Mild anemia same hb 11.9 meron [id number] documented in this encounter Plan of Treatment Upcoming Encounters Date Type Department Care Team (Late st Contact Info) Description 06/03/2024 1:00 PM FAST FOOD MANAGER Appointment [facility] - Rheumatology [address] [place] [address] [phone] 06/03/2024 2:00 PM FAST FOOD MANAGER Office Visit [facility] - Rheumatology [address] [place] [address] Gloria Smith MD [address] [place] [phone] documented as of this encounter Procedures [...] 02/02/2017 Narrative Resulting Agency Comment [facility] [address] ??Formerly [facility] [id number] Isidro Heredia MD LAB - CHEMISTRY ORD DONNIE [facility] INSURANCE BILL [address] [place] [address] * ERYTHROCYTE SEDIMENTATION RATE (02/02/2017 12:00 PM CDT) Erythrocyte Sedimentation Rate Westergren 6 0 - 30 mm/hr [facility] INSURANCE BILL Blood BLOOD SPECIMEN / Unknown 02/02/2017 12:00 PM CDT 02/02/2017 Narrative Resulting Agency Comment [facility] [place] [address] ??Formerly [facility] [phone] Isidro Heredia MD LAB - HEMATOLOGY OR DERABLES [facility] INSURANCE BILL [address] [place] [address] * (ABNORMAL) COMPREHENSIVE METABOLIC PANEL (02/02/2017 12:00 [...] CDT 02/02/2017 Narrative Resulting Agency Comment [facility] [address] ??Formerly [facility] [phone] Isidro Heredia MD LAB - CHEMISTRY ORD ERABLES [facility] INSURANCE BILL [address] [place] [address] * (ABNORMAL) CBC W AUTO DIFFERENTIAL (02/02/2017 [...] CDT 02/02/2017 Narrative Resulting Agency Comment [facility] [address] [facility] ??Formerly [facility] [id number] Isidro Heredia MD LAB - HEMATOLOGY OR DERABLES [facility] INSURANCE BILL [address] [place] [address] documented in this encounter Visit Diagnoses Diagnosis Encounter for long-term (current) use of medications- Primary Encounter for long-term (current) use of other medications documented in this encounter Care Teams Station Installer Relationship Specialty Start Date End Date Tomas Hyman MD [address] [facility] [address] [place] [address] PCP - General Family Medicine 12/31/13 05/09/18 Isidro Heredia MD Rheumatology 02/09/11 documented as of this encounter
--- OUTSIDE RECORDS SUMMARY | 2024-05-10 18:46 | XMS_ITS | Encounter Summary ---
Author Organization [facility] Address [address] [place] [address] Care Team Providers Care Lettuce Cutter Name Role Phone Isidro Heredia MD Unavailable [phone] Tomas Hyman MD Primary Care Provider [phone] Encounter Details Date Type Department Care Team (Latest Contact Info) Description 03/01/2017 10:05 AM CDT - 03/01/2017 11:59 PM CDT Hospital Encounter [facility] Pain Care [address] [place] [address] [place] [address] [place] [address] Discharge Disposition: Home or Self Care Social [...] Henao RN - 03/01/2017 10:10 AM CDT [facility] Procedure [...] headache, or any other problems, please call [phone] or after hours callDr. Mirza at [phone] and tell them your physician's name. The exchange will alert the physician printed circuit boards contact printer. If sedation is given: No sedation given. [...] PO) ??? Multiple Vitamin (MULTI-VITAMIN PO) ??? Bbxpnozpcty-Sisobgets-Aop C-Mn (GLUCOSAMINE CHONDR 1500 COMPLX PO) ??? [...] identified, and marked by Dr. Mirza. Responsible boat driver is not needed due to the [...] PO) ??? Multiple Vitamin (MULTI-VITAMIN PO) ??? Hhudbgugsit-Dowkhyzja-Upg C-Mn (GLUCOSAMINE CHONDR 1500 COMPLX PO) ??? [...] identified, and marked by Dr. Mirza. Responsible boat driver is not needed due to the [...] st Contact Info) Description 06/03/2024 1:00 PM SWEAT BOX ATTENDANT Appointment [facility] - Rheumatology [address] [place] [address] [phone] 06/03/2024 2:00 PM SWEAT BOX ATTENDANT Office Visit [facility] - Rheumatology [address] [place] [address] Gloria Smith MD [address] [place] [phone] documented as of this encounter Procedures Procedure [...] ? Multiple Vitamin (MULTI-VITAMIN PO) ? ? Dugermaznnx-Rrwdundeq-Woh C-Mn (GLUCOSAMINE CHONDR 1500 COMPLX PO) ? [...] identified, and marked by Dr. Mirza. ??Responsible boat driver is not needed due to the [...] mg documented in this encounter Care Teams Lettuce Cutter Relationship Specialty Start Date End Date Tomas Hyman MD [address] [place] [address] PCP - General Family Medicine 12/31/13 05/09/18 Isidro Heredia MD Rheumatology 02/09/11 documented as of this encounter
--- OUTSIDE RECORDS SUMMARY | 2024-05-10 18:46 | XMS_ITS | Encounter Summary ---
Author Organization [facility] Address [address] [facility] [place] [address] Care Team Providers Care Security And Privacy Consultant Name Role Phone Isidro Heredia MD Unavailable [phone] Tomas Hyman MD Primary Care Provider [phone] Reason for Visit * Treatment (Routine) - Closed Specialty Diagnoses / Procedures Referred By Lawrence shah Referred To Contact Infusion Therapy Nurse Diagnoses Rheumatoid arthritis without rheumatoid factor, multiple sites (HCC) Procedures [place] INJECTION TOCILIZUMAB 1 MG Isidro Heredia MD [address] [facility] [address] [address] Referral ID Status Reason Start Date Expiration Date Visits Re quested Visits Authorized [id number] Closed 08/07/2016 04/29/2017 1 12 Encounter Details Date Type Department Care Team (Late st Contact Info) Description 01/04/2017 2:00 PM CDT - 01/04/2017 11:59 PM CDT Hospital Encounter [facility] Medical [facility] - Rheumatology [address] [place] [address] Isidro Heredia MD [address] [facility] [address] Discharge Disposition: Home or Self [...] Sahu RN - 01/04/2017 2:26 PM CDT [place] Rheumatology Post Infusion instructions [...] Sunday through 01-02 call the office at [phone] After hours or on the weekend call the exchange at [phone] If you have had lab work done [...] - 01/04/2017 2:40 PM CDT JOSE Deng [id number] 01/04/2017 Diagnosis: Rheumatoid arthritis without rheumatoid factor, [...] st Contact Info) Description 06/03/2024 1:00 PM AIRCRAFT ARMORER Appointment [facility] - Rheumatology [address] [place] [address] [phone] 06/03/2024 2:00 PM AIRCRAFT ARMORER Office Visit [facility] - Rheumatology [address] [place] [address] Gloria Smith MD [address] [place] [phone] documented as of this encounter Visit [...] mg documented in this encounter Care Teams Security And Privacy Consultant Relationship Specialty Start Date End Date Tomas Hyman MD [address] [facility] [address] [place] [address] PCP - General Family Medicine 12/31/13 05/09/18 Isidro Heredia MD Rheumatology 02/09/11 documented as of this encounter
--- OUTSIDE RECORDS SUMMARY | 2024-05-10 18:46 | XMS_ITS | Encounter Summary ---
Author Organization [facility] Address [address] [facility] [place] [address] Care Team Providers Care Export Administrator Name Role Phone Isidro Heredia MD Unavailable [phone] Tomas Hyman MD Primary Care Provider [phone] Reason for Visit * Treatment (Routine) - Closed Specialty Diagnoses / Procedures Referred By Lawrence shah Referred To Contact Infusion Therapy Nurse Diagnoses Rheumatoid arthritis without rheumatoid factor, multiple sites (HCC) Procedures [place] INJECTION TOCILIZUMAB 1 MG Isidro Heredia MD [address] [facility] [place] [address] [address] Referral ID Status Reason Start Date Expiration Date Visits Re quested Visits Authorized [id number] Closed 05/11/2017 04/29/2018 1 13 Encounter Details Date Type Department Care Team (Late st Contact Info) Description 12/19/2017 1:00 PM CDT - 12/19/2017 11:59 PM CDT Hospital Encounter [facility] Medical [facility] - Rheumatology [address] [place] [address] Isidro Heredia MD [address] [facility] [place] [address] Discharge Disposition: Home or Self [...] Christy RN - 12/19/2017 1:40 PM CDT [place] Rheumatology Post Infusion instructions [...] Sunday through 01-02 call the office at [phone] After hours or on the weekend call the exchange at [phone] If you have had lab work done [...] - 12/19/2017 1:45 PM CDT JOSE Deng [id number] 12/19/2017 Diagnosis: Rheumatoid arthritis without rheumatoid factor, multiple sites [M06.09]. Pt denies symptoms of infection or antibiotic use, no open wounds, or recent surgery, or plans for surgery in the next couple of weeks. Pt is aware that we use the 0-10 pain scale to assess discomfort. 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 front end developer pt signs consent for [...] st Contact Info) Description 06/03/2024 1:00 PM RECAPPER Appointment [facility] - Rheumatology [address] [place] [address] 06/03/2024 2:00 PM RECAPPER Office Visit [facility] - Rheumatology [address] [place], [place] [address] [address] Gloria Smith MD [address] [place] [address] [place] [phone] documented as of this encounter Visit Diagnoses [...] mL/hr documented in this encounter Care Teams Export Administrator Relationship Specialty Start Date End Date Tomas Hyman MD [address] [address] [address] [place] [address] PCP - General Family Medicine 12/31/13 05/09/18 Isidro Heredia MD Rheumatology 02/09/11 documented as of this encounter
--- OUTSIDE RECORDS SUMMARY | 2024-05-10 18:46 | XMS_ITS | Encounter Summary ---
Author Organization [facility] Address [address] [facility] [place] [address] Care Team Providers Care Decorating Inspector Name Role Phone Isidro Heredia MD Unavailable [phone] Tomas Hyman MD Primary Care Provider Reason for Visit * Reason Onset Date Comments Follow-up 02/26/2018 Encounter Details Date Type Department Care Team (Late Contact Info) Description 02/26/2018 Telephone [facility] Medical [facility] - Rheumatology [address] [place] [address] Isidro Heredia MD [address] [place] [address] Follow-up Social History Tobacco Use Types [...] st Contact Info) Description 06/03/2024 1:00 PM LAW FIRM PARTNER Appointment [facility] - Rheumatology [address] [place] [address] [phone] 06/03/2024 2:00 PM LAW FIRM PARTNER Office Visit [facility] - Rheumatology [address] [place] [address] [phone] Gloria Smith MD [address] [place] [phone] documented as of this encounter Visit Diagnoses Not on filedocumented in this encounter Care Teams Decorating Inspector Relationship Specialty Start Date End Date Tomas Hyman MD [address] [facility] [address] [place] [address] PCP - General Family Medicine 12/31/13 05/09/18 Isidro Heredia MD Rheumatology 02/09/11 documented as of this encounter
--- OUTSIDE RECORDS SUMMARY | 2024-05-10 18:46 | XMS_ITS | Encounter Summary ---
Author Organization [facility] Address [address] [place] [address] Care Team Providers Care Welder Machine Operator Name Role Phone Isidro Heredia MD Unavailable [phone] Tomas Hyman MD Primary Care Provider [phone] Reason for Visit * Reason Comments Refill Request Encounter Details Date Type Department Care Team (Late Contact Info) Description 07/25/2017 Refill [facility] - Rheumatology [address] [place] [address] Isidro Heredia MD [address] [place] [address] Refill Request Social History Tobacco Use [...] (Late Contact Info) Description 06/03/2024 1:00 PM MORTICIAN INVESTIGATOR Appointment [facility] - Rheumatology [address] [place] [address] 06/03/2024 2:00 PM MORTICIAN INVESTIGATOR Office Visit [facility] Rheumatology [address] [place] [address] Gloria Smith MD [address] [place] [address] [address] documented as of this encounter Visit Diagnoses Not on filedocumented in this encounter Care Teams Welder Machine Operator Relationship Specialty Start Date End Date Tomas Hyman MD [address] [place] [address] PCP - General Family Medicine 12/31/13 05/09/18 Isidro Heredia MD Rheumatology 02/09/11 documented as of this encounter
--- OUTSIDE RECORDS SUMMARY | 2024-05-10 18:46 | XMS_ITS | Encounter Summary ---
Author Organization [facility] Address [address] [facility] [place] [address] Care Team Providers Care Applied Behavior Specialist Name Role Phone Isidro Heredia MD Unavailable Tomas Hyman MD Primary Care Provider [phone] Reason for Visit * Treatment (Routine) - Closed Specialty Diagnoses / Procedures Referred By Lawrence shah Referred To Contact Infusion Therapy Nurse Diagnoses Rheumatoid arthritis without rheumatoid factor, multiple sites (HCC) Procedures CA INJECTION TOCILIZUMAB 1 MG Isidro Heredia MD [address] [place] [address] [address] Referral ID Status Reason Start Date Expiration Date Visits Re quested Visits Authorized [id number] Closed 08/07/2016 04/29/2017 1 12 Encounter Details Date Type Department Care Team (Late st Contact Info) Description 04/05/2017 2:03 PM ANALYTICAL LEAD - 04/05/2017 11:59 PM ANALYTICAL LEAD Hospital Encounter [facility] Medical [facility] - Rheumatology [address] [place] [address] Isidro Heredia MD [address] [facility] [place] [address] Discharge Disposition: Home or [...] Comments Blood Pressure 163/90 04/05/2017 2:25 PM ANALYTICAL LEAD Pulse 70 04/05/2017 2:25 PM ANALYTICAL LEAD Temperature 37.2 ??C (99 ??F) 04/05/2017 2:25 PM ANALYTICAL LEAD Respiratory Rate 18 04/05/2017 2:25 PM ANALYTICAL LEAD Oxygen Saturation - - Inhaled Oxygen Concentration - - Weight 113.4 kg (250 lb) 04/05/2017 2:25 PM ANALYTICAL LEAD Height - - Body Mass Index 35.87 01/11/2016 3:12 PM CDT documented in this encounter Discharge Instructions * Discharge Instructions* Jody Sahu RN - 04/05/2017 2:34 PM ANALYTICAL LEAD [place] Rheumatology Post Infusion instructions You have [...] through Sunday 9-5 call the office at [phone] After hours or on the weekend call the exchange at [phone] If you have had lab work done [...] Hospital as your provider. Jody Sahu RN YTICAL LEAD documented in this encounter Medications at Time [...] - 04/05/2017 2:49 PM CST JOSE Deng [id number] 04/05/2017 Diagnosis: Rheumatoid arthritis without rheumatoid factor, [...] Next treatment? 4 weeks Jody Sahu RN YTICAL LEAD documented in this encounter Plan of Treatment Upcoming Encounters Date Type Department Care Team (Late st Contact Info) Description 06/03/2024 1:00 PM ANALYTICAL LEAD Appointment [facility] - Rheumatology [address] [place] [address] 06/03/2024 2:00 PM ANALYTICAL LEAD Office Visit [facility] - Rheumatology [address] [place] [address] Gloria Smith MD [address] [place] [phone] documented as of this encounter Visit Diagnoses [...] RT $ New Bag/Syringe 04/05/2017 2:45 PM ANALYTICAL LEAD 800 mg 100 mL/hr documented in this encounter Care Teams Applied Behavior Specialist Relationship Specialty Start Date End Date Tomas Hyman MD [address] [facility] [address] [place] [address] PCP - General Family Medicine 12/31/13 05/09/18 Isidro Heredia MD Rheumatology 02/09/11 documented as of this encounter
--- OUTSIDE RECORDS SUMMARY | 2024-05-10 18:46 | XMS_ITS | Encounter Summary ---
Author Organization [facility] Address [address] [facility] [place] [address] Care Team Providers Care Senior Product Integrity Engineer Name Role Phone Isidro Heredia MD Unavailable Tomas Hyman MD Primary Care Provider [phone] Encounter Details Date Type Department Care Team (Late Contact Info) Description 08/27/2017 Orders Only [facility] - Rheumatology [address] [place] [address] Isidro Heredia MD [address] [place] [address] Encounter for long-term (current) use of [...] (Late Contact Info) Description 06/03/2024 1:00 PM NEWSPAPER ILLUSTRATOR Appointment [facility] - Rheumatology [address] [place] [address] 06/03/2024 2:00 PM NEWSPAPER ILLUSTRATOR Office Visit [facility] Rheumatology [address] [place] [address] Song, Gloria, MD [address] [place], [place] [address], [place] [address] documented as of this encounter Procedures Procedure [...] CDT 09/03/2017 Narrative Resulting Agency Comment [facility] [address] ??[facility] [phone] Isidro Heredia MD LAB - CHEMISTRY ORD ERABLES [facility] INSURANCE BILL [address] [place] [address] documented in this encounter Visit Diagnoses Diagnosis Encounter for long-term (current) use of medications- Primary Encounter for long-term (current) use of other medications documented in this encounter Care Teams Senior Product Integrity Engineer Relationship Specialty Start Date End Date Tomas Hyman MD [address] [facility] [address] [place] [address] PCP - General Family Medicine 12/31/13 05/09/18 Isidro Heredia MD Rheumatology 02/09/11 documented as of this encounter
--- OUTSIDE RECORDS SUMMARY | 2024-05-10 18:46 | XMS_ITS | Encounter Summary ---
Author Organization [facility] Address [address] [facility] [place] [place] [address] Care Team Providers Care Nurse Behavioral Health Care Name Role Phone Isidro Heredia MD Unavailable [phone] Tomas Hyman MD Primary Care Provider [phone] Encounter Details Date Type Department Care Team (Late Contact Info) Description 03/04/2018 Orders Only [facility] - Rheumatology [address] [place] [address] Isidro Heredia MD [address] [place] [address] Encounter for long-term (current) use of [...] (Late Contact Info) Description 06/03/2024 1:00 PM THAW SHED HEATER TENDER Appointment [facility] - Rheumatology [address] [place] [address] 06/03/2024 2:00 PM THAW SHED HEATER TENDER Office Visit [facility] Rheumatology [address] [place] [address] Gloria Smith MD [address] [place], [place] [address] [phone] Scheduled Orders Name Type Priority Associated Diagnoses [...] ERYTHROCYTE SEDIMENTATION RATE Routine 03/07/2018 12:00 PM THAW SHED HEATER TENDER Encounter for long-term (current) use of medications CBC W AUTO DIFFERENTIAL Routine 03/07/2018 12:00 PM THAW SHED HEATER TENDER Encounter for long-term (current) use of medications COMPREHENSIVE METABOLIC PANEL Routine 03/07/2018 12:00 PM THAW SHED HEATER TENDER Encounter for long-term (current) use of medications [...] Resulting Agency Comment Lab Testing performed at: [facility] ??[facility] [phone] Isidro Heredia MD LAB - HEMATOLOGY OR DERABLES Performing Organization Address City/[facility] Co de Phone Number [facility] INSURANCE BILL [address] [place] [address] * ERYTHROCYTE SEDIMENTATION RATE (03/07/2018 12:00 PM THAW SHED HEATER TENDER) Erythrocyte Sedimentation Rate Westergren 23 0 - 30 mm/hr [facility] INSURANCE BILL Blood BLOOD SPECIMEN / Unknown 03/07/2018 12:00 PM THAW SHED HEATER TENDER 03/07/2018 Narrative Resulting Agency Comment [facility] ??[facility] [phone] Isidro Heredia MD LAB - HEMATOLOGY OR DERABLES Performing Organization Address City/[facility]/ZIP Co de Phone Number [facility] INSURANCE BILL [address] [place] [address] * (ABNORMAL) COMPREHENSIVE METABOLIC PANEL (03/07/2018 12:00 PM THAW SHED HEATER TENDER) Glucose 135(H) 65 - 99 mg/dL [facility] [...] BLOOD SPECIMEN / Unknown 03/07/2018 12:00 PM THAW SHED HEATER TENDER 03/07/2018 Narrative Resulting Agency Comment [facility] [address] [facility] ??[facility] [phone] Isidro Heredia MD LAB - CHEMISTRY ORD ERABLES [facility] INSURANCE BILL [address] [place] [address] * (ABNORMAL) CBC WITH DIFFERENTIAL (03/07/2018 12:00 PM THAW SHED HEATER TENDER) [facility] WBC 10.8 3.4 - 10.8 x10E3/uL [...] BLOOD SPECIMEN / Unknown 03/07/2018 12:00 PM THAW SHED HEATER TENDER 03/07/2018 Narrative Resulting Agency Comment [facility] [address] ??[facility] [phone] Isidro Heredia MD LAB - HEMATOLOGY OR DERABLES [facility] INSURANCE BILL [address] [place] [address] documented in this encounter Visit Diagnoses Diagnosis Encounter for long-term (current) use of medications- Primary Encounter for long-term (current) use of other medications documented in this encounter Care Teams Nurse Behavioral Health Care Relationship Specialty Start Date End Date Tomas Hyman MD [address] [place] [address] PCP - General Family Medicine 12/31/13 05/09/18 Isidro Heredia MD Rheumatology 02/09/11 documented as of this encounter
--- OUTSIDE RECORDS SUMMARY | 2024-05-10 18:46 | XMS_ITS | Encounter Summary ---
Author Organization [facility] Address [address] [place] [address] Care Team Providers Care Microbiological Analyst Name Role Phone Isidro Heredia MD Unavailable [phone] Tomas Hyamn MD Primary Care Provider [phone] Reason for Visit * Treatment (Routine) - Closed Specialty Diagnoses / Procedures Referred By Lawrence shah Referred To Contact [place] [id number] [address] [facility] Pain Care [address] [place] [address] Referral ID Status Reason Start Date Expiration Date Visits Re quested Visits Authorized [id number] Closed 03/01/2017 08/28/2017 1 3 Encounter Details Date Type Department Care Team (Latest Contact Info) Description 03/01/2017 10:03 AM CDT - 03/01/2017 10:04 AM CDT Hospital Encounter [facility] Health Pain Care [id number] [place] [address] [place] [address] [address] Discharge Disposition: Home or [...] Contact Info) Description 06/03/2024 1:00 PM MASTER PLUMBER Appointment [facility] - Rheumatology [address] [place] [phone] 06/03/2024 2:00 PM MASTER PLUMBER Office Visit [facility] - Rheumatology [address] [place] [address] Gloria Smith MD [address] [place] [phone] documented as of this encounter Visit Diagnoses Not on filedocumented in this encounter Care Teams Microbiological Analyst Relationship Specialty Start Date End Date Tomas Hyman MD [address] [facility] [address] [place] [address] PCP - General Family Medicine 12/31/13 05/09/18 Isidro Heredia MD Rheumatology 02/09/11 documented as of this encounter
--- OUTSIDE RECORDS SUMMARY | 2024-05-10 18:46 | XMS_ITS | Encounter Summary ---
Author Organization [facility] Address [address] [facility] [place] [address] Care Team Providers Care Prescriptionist Name Role Phone Isidro Heredia MD Unavailable [phone] Tomas Hyman MD Primary Care Provider [phone] Reason for Visit * Reason Comments Refill Request Encounter Details Date Type Department Care Team (Late Contact Info) Description 06/19/2017 Refill [facility] - Rheumatology [address] [place] [address] Isidro Heredia MD [address] [place] [address] Refill Request Social History Tobacco Use [...] (Late Contact Info) Description 06/03/2024 1:00 PM FAST FOOD CREW LEAD Appointment [facility] - Rheumatology [address] [place] [address] 06/03/2024 2:00 PM FAST FOOD CREW LEAD Office Visit [facility] Rheumatology [address] [place] [address] Gloria Smith MD [address] [place] [address], [place] [address] documented as of this encounter Visit Diagnoses Not on filedocumented in this encounter Care Teams Prescriptionist Relationship Specialty Start Date End Date Tomas Hyman MD [address] [place] [address] PCP - General Family Medicine 12/31/13 05/09/18 Isidro Hereida MD Rheumatology 02/09/11 documented as of this encounter
--- OUTSIDE RECORDS SUMMARY | 2024-05-10 18:46 | XMS_ITS | Encounter Summary ---
Author Organization [facility] Address [address] [facility] [place] [address] Care Team Providers Care Monitoring Engineer Name Role Phone Isidro Heredia MD Unavailable [phone] Tomas Hyman MD Primary Care Provider Reason for Visit * Reason Onset Date Comments Appointment 01/14/2018 Encounter Details Date Type Department Care Team (Late st Contact Info) Description 01/14/2018 Telephone [facility] - Rheumatology [address] [place] [address] Isidro Heredia MD [address] [place] [address] Appointment Social History Tobacco Use Types [...] Contact Info) Description 06/03/2024 1:00 PM BUS TROLLEY AND TAXI INSTRUCTOR Appointment [facility] - Rheumatology [address] [place] [address] 06/03/2024 2:00 PM BUS TROLLEY AND TAXI INSTRUCTOR Office Visit [facility] - Rheumatology [address] [place] [address] Gloria Smith MD [address] [place] [phone] documented as of this encounter Visit Diagnoses Not on filedocumented in this encounter Care Teams Monitoring Engineer Relationship Specialty Start Date End Date Tomas Hyman MD [address] [facility] [address] [place] [address] PCP - General Family Medicine 12/31/13 05/09/18 Isidro Heredia MD Rheumatology 02/09/11 documented as of this encounter
--- OUTSIDE RECORDS SUMMARY | 2024-05-10 18:46 | XMS_ITS | Encounter Summary ---
Author Organization [facility] Address [address] [facility] [place] [address] Care Team Providers Care Veterans Employment Representative Name Role Phone Isidro Heredia MD Unavailable [phone] Tomas Hyman MD Primary Care Provider [phone] Encounter Details Date Type Department Care Team (Latest Contact Info) Description 12/21/2016 10:15 AM CDT - 12/21/2016 11:59 PM CDT Hospital Encounter [facility] Pain Care [address] [place] [address] [place] [address] [place] [address] Discharge Disposition: Home or Self Care Social [...] Henao RN - 12/21/2016 10:46 AM CDT [facility] Procedure Center [...] headache, or any other problems, please call [phone] or after hours callDr. Mirza at [phone] and tell them your physician's name. The exchange will alert the physician neon sign erector. If sedation is given: No sedation given. For Your Next Visit: No additional instructions. Other Instructions: May remove band-aid in 12 Hours. Return KIMBERLEY 2 in 1 week. documented in this encounter Medications at Time of Discharge Medication Sig Dispensed Refills Start Date End Date atorvastatin (LIPITOR) 40 MG tablet Take 1 (one) tablet by mouth at bedtime Agksuetkddj-Ifutsohcy-Y it C-Mn (GLUCOSAMINE CHONDR 1500 COMPLX PO) [...] Coumadin, Plavix or other blood thinners. Responsible electric pile driver operator is not needed due [...] st Contact Info) Description 06/03/2024 1:00 PM CHANNEL OPENER OUTSOLES Appointment [facility] - Rheumatology [address] [place] [address] 06/03/2024 2:00 PM CHANNEL OPENER OUTSOLES Office Visit [facility] - Rheumatology [address] [place] [address] Gloria Smith MD [address] [place] [phone] documented as of this encounter Procedures [...] Coumadin, Plavix or other blood thinners. ??Responsible electric pile driver operator is not needed due [...] mg documented in this encounter Care Teams Veterans Employment Representative Relationship Specialty Start Date End Date Tomas Hyman MD [address] [place] [address] PCP - General Family Medicine 12/31/13 05/09/18 Isidro Heredia MD Rheumatology 02/09/11 documented as of this encounter
--- OUTSIDE RECORDS SUMMARY | 2024-05-10 18:46 | XMS_ITS | Encounter Summary ---
Author Organization [facility] Address [address] [facility] [place] [address] Care Team Providers Care Bottle Filler Name Role Phone Isidro Heredia MD Unavailable [phone] Tomas Hyman MD Primary Care Provider [phone] Reason for Visit * Treatment (Routine) - Closed Specialty Diagnoses / Procedures Referred By Lawrence shah Referred To Contact Infusion Therapy Nurse Diagnoses Rheumatoid arthritis without rheumatoid factor, multiple sites (HCC) Procedures HI INJECTION TOCILIZUMAB 1 MG Isidro Heredia MD [address] [facility] [place] [address] [address] Referral ID Status Reason Start Date Expiration Date Visits Re quested Visits Authorized [id number] Closed 05/11/2017 04/29/2018 1 13 Encounter Details Date Type Department Care Team (Late st Contact Info) Description 08/01/2017 12:53 PM CDT - 08/01/2017 11:59 PM CDT Hospital Encounter [facility] - Rheumatology [address] [place] [address] Isidro Heredia MD [address] [facility] [place] [address] Discharge Disposition: Home or Self [...] Sahu RN - 08/01/2017 1:21 PM CDT [place] Rheumatology Post Infusion instructions [...] Sunday through 01-02 call the office at [phone] After hours or on the weekend call the exchange at [phone] If you have had lab work done [...] 08/01/2017 1:39 PM CDT JOSE Chalino Deng [id number] 08/01/2017 Diagnosis: Rheumatoid arthritis without rheumatoid factor, multiple sites [M06.09]. Pt denies symptoms of infection or antibiotic use, no open wounds, or recent surgery, or plans for surgery in the next couple of weeks. Pt is aware that we use the 0-10 pain scale to assess discomfort. 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 front sight attacher pt signs consent for treatment for this [...] 06/03/2024 1:00 PM STAFF ANTISUBMARINE OFFICER Appointment [facility] - Rheumatology [address] [place] [phone] 06/03/2024 2:00 PM STAFF ANTISUBMARINE OFFICER Office Visit [facility] - Rheumatology [address] [place] [address] Gloria Simth MD [address] [place] [phone] documented as of this encounter Visit [...] mg documented in this encounter Care Teams Bottle Filler Relationship Specialty Start Date End Date Tomas Hyman MD [address] [facility] [address] [place] [address] PCP - General Family Medicine 12/31/13 05/09/18 Isidro Heredia MD Rheumatology 02/09/11 documented as of this encounter
--- OUTSIDE RECORDS SUMMARY | 2024-05-10 18:46 | XMS_ITS | Encounter Summary ---
Author Organization [facility] Address [address] [facility] [place] [address] Care Team Providers Care Egg Caser Name Role Phone Isidro Heredia MD Unavailable [phone] Tomas Hyman MD Primary Care Provider [phone] Reason for Visit * Treatment (Routine) - Closed Specialty Diagnoses / Procedures Referred By Lawrence shah Referred To Contact Infusion Therapy Nurse Diagnoses Rheumatoid arthritis without rheumatoid factor, multiple sites (HCC) Procedures SD INJECTION TOCILIZUMAB 1 MG Isidro Heredia MD [address] [facility] [place] [address] [address] Referral ID Status Reason Start Date Expiration Date Visits Re quested Visits Authorized [id number] Closed 08/07/2016 04/29/2017 1 12 Encounter Details Date Type Department Care Team (Late st Contact Info) Description 11/23/2016 12:13 PM CDT - 11/23/2016 11:59 PM CDT Hospital Encounter [facility] Medical [facility] - Rheumatology [address] [place] [address] Isidro Heredia MD [address] [facility] [place] [address] Discharge Disposition: Home or Self [...] - 11/23/2016 1:49 PM CDT Discharge Instructions [facility] Rheumatology You have received your [...] through Sunday 9-5 call the office at [phone]. After hours or on the weekend call [...] 1 (one) tablet by mouth at bedtime Xkbkobpdaqx-Ejrghrmzw-E it C-Mn (GLUCOSAMINE CHONDR 1500 COMPLX PO) [...] 11/23/2016 12:43 PM CDT JOSE Chalino Deng [id number] 11/23/2016 Diagnosis: Rheumatoid arthritis without rheumatoid factor, [...] st Contact Info) Description 06/03/2024 1:00 PM TYING MACHINE OPERATOR LUMBER Appointment [facility] - Rheumatology [address] [place], [place] [phone] 06/03/2024 2:00 PM TYING MACHINE OPERATOR LUMBER Office Visit [facility] - Rheumatology [address] [place] [address] Gloria Smith MD [address] [place] [phone] documented as of this encounter Visit Diagnoses [...] mg documented in this encounter Care Teams Egg Caser Relationship Specialty Start Date End Date Tomas Hyman MD [address] [facility] [address] [place] [address] PCP - General Family Medicine 12/31/13 05/09/18 Isidro Heredia MD Rheumatology 02/09/11 documented as of this encounter
--- OUTSIDE RECORDS SUMMARY | 2024-05-10 18:46 | XMS_ITS | Encounter Summary ---
Author Organization [facility] Address [address] [place] [address] Care Team Providers Care Hematology Nurse Name Role Phone Isidro Heredia MD Unavailable [phone] Tomas Hyman MD Primary Care Provider [phone] Reason for Visit * Reason Onset Date Comments MEDICATION REFILL 04/05/2017 Encounter Details Date Type Department Care Team (Late Contact Info) Description 04/05/2017 Refill [facility] - Rheumatology [address] [place] [address] Isidro Heredia MD [address] [place] [address] MEDICATION REFILL Social History Tobacco Use [...] (Late Contact Info) Description 06/03/2024 1:00 PM CHAIN SALES REPRESENTATIVE Appointment [facility] - Rheumatology [address] [place] [address] 06/03/2024 2:00 PM CHAIN SALES REPRESENTATIVE Office Visit [facility] - Rheumatology [address] [place] [address] Gloria Smith MD [address] [place] [phone] documented as of this encounter Visit Diagnoses Not on filedocumented in this encounter Care Teams Hematology Nurse Relationship Specialty Start Date End Date Tomas Hyman MD [address] [place] [address] PCP - General Family Medicine 12/31/13 05/09/18 Isidro Heredia MD Rheumatology 02/09/11 documented as of this encounter
--- OUTSIDE RECORDS SUMMARY | 2024-05-10 18:46 | XMS_ITS | Encounter Summary ---
Author Organization [facility] Address [address] [place] [address] Care Team Providers Care Operations Examiner Name Role Phone Isidro Heredia MD Unavailable [phone] Tomas Hyman MD Primary Care Provider [phone] Reason for Visit * Reason Comments Refill Request Encounter Details Date Type Department Care Team (Late Contact Info) Description 12/23/2016 Refill [facility] - Rheumatology [address] [place] [address] Isidro Heredia MD [address] [place] [address] Refill Request Social History Tobacco Use [...] (Late Contact Info) Description 06/03/2024 1:00 PM SEW ON OPERATOR Appointment [facility] - Rheumatology [address] [place] [address] 06/03/2024 2:00 PM SEW ON OPERATOR Office Visit [facility] Rheumatology [address] [place] [address] Gloria Smith MD [address] [place], [place] [address], [place] [address] documented as of this encounter Visit Diagnoses Not on filedocumented in this encounter Care Teams Operations Examiner Relationship Specialty Start Date End Date Tomas Hyman MD [address] [place] [address] PCP - General Family Medicine 12/31/13 05/09/18 Isidro Heredia MD Rheumatology 02/09/11 documented as of this encounter
--- OUTSIDE RECORDS SUMMARY | 2024-05-10 18:46 | XMS_ITS | Encounter Summary ---
Author Organization [facility] Address [address] [facility] [place] [address] Care Team Providers Care Cashier Ticket Selling Name Role Phone Isidro Heredia MD Unavailable [phone] Tomas Hyman MD Primary Care Provider [phone] Reason for Visit * Treatment (Routine) - Closed Specialty Diagnoses / Procedures Referred By Lawrence shah Referred To Contact Infusion Therapy Nurse Diagnoses Rheumatoid arthritis without rheumatoid factor, multiple sites (HCC) Procedures [place] INFLIXIMAB INJECTION Isidro Heredia MD [address] [place] [address] [address] Referral ID Status Reason Start Date Expiration Date Visits Re quested Visits Authorized [id number] Closed 02/28/2018 04/29/2018 1 6 Encounter Details Date Type Department Care Team (Late st Contact Info) Description 03/27/2018 9:53 AM COUNCILMAN - 03/27/2018 11:59 PM COUNCILMAN Hospital Encounter [facility] - Rheumatology [address] [place] [address] Isidro Heredia MD [address] [place] [address] Discharge Disposition: Home or Self [...] Comments Blood Pressure 152/68 03/27/2018 1:00 PM COUNCILMAN Pulse 76 03/27/2018 1:00 PM COUNCILMAN Temperature 36.6 ??C (97.9 ??F) 03/27/2018 10:[address] Respiratory Rate 18 03/27/2018 1:00 PM COUNCILMAN Oxygen Saturation - - Inhaled Oxygen Concentration - - Weight 104.3 kg (230 lb) 03/27/2018 10:11 AM COUNCILMAN Height - - Body Mass Index 33 01/11/2016 3:12 PM CDT documented in this encounter Discharge Instructions * Discharge Instructions* Jody Sahu RN - 03/27/2018 10:25 AM COUNCILMAN [place] Rheumatology Post Infusion instructions You have [...] through Sunday 9-5 call the office at [phone] After hours or on the weekend call the exchange at [phone] If you have had lab work done [...] Hospital as your provider. Jody Sahu RN CILMAN documented in this encounter Medications at Time [...] 03/27/2018 10:27 AM CST INFUSIONS Chalino Deng [id number] 03/27/2018 Diagnosis: Rheumatoid arthritis without rheumatoid factor, multiple sites [M06.09]. Pt denies symptoms of infection or antibiotic use, no open wounds, or recent surgery, or plans for surgery in the next couple of weeks. Pt is aware that we use the 0-10 pain scale to assess discomfort. 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 front end loader operator pt signs consent for treatment for [...] other signs of hypersensitivity. Jody Sahu RN CILMAN documented in this encounter Plan of Treatment Upcoming Encounters Date Type Department Care Team (Late st Contact Info) Description 06/03/2024 1:00 PM COUNCILMAN Appointment [facility] - Rheumatology [address] [place] [address] 06/03/2024 2:00 PM COUNCILMAN Office Visit [facility] - Rheumatology [address] [place] [address] Gloria Smith MD [address] [place] [phone] documented as of this encounter Visit Diagnoses [...] filter. $ New Bag/Syringe 03/27/2018 10:20 AM COUNCILMAN 300 mg 135 mL/hr documented in this encounter Care Teams Cashier Ticket Selling Relationship Specialty Start Date End Date Tomas Hyman MD [address] [place] [address] PCP - General Family Medicine 12/31/13 05/09/18 Isidro Heredia MD Rheumatology 02/09/11 documented as of this encounter
--- OUTSIDE RECORDS SUMMARY | 2024-05-10 18:46 | XMS_ITS | Encounter Summary ---
Author Organization [facility] Address [address] [facility] [place] [address] Care Team Providers Care Plastic Mixer Name Role Phone Isidro Heredia MD Unavailable [phone] Tomas Hyman MD Primary Care Provider [phone] Encounter Details Date Type Department Care Team (Late Contact Info) Description 06/12/2017 Orders Only [facility] - Rheumatology [address] [place] [address] Isidro Heredia MD [address] [place] [address] Rheumatoid arthritis involving multiple sites, unspecified [...] (Late Contact Info) Description 06/03/2024 1:00 PM TRAIN OPERATIONS MANAGER Appointment [facility] - Rheumatology [address] [place] [address] 06/03/2024 2:00 PM TRAIN OPERATIONS MANAGER Office Visit [facility] Rheumatology [address] [place] [address] Gloria Smith MD [address] [place], [place] [address], [place] [address] documented as of this encounter Procedures Procedure [...] CDT 08/01/2017 Narrative Resulting Agency Comment [facility] [address] [facility] [id number] Isidro Heredia MD LAB - HEMATOLOGY OR DERABLES [facility] INSURANCE BILL [address] [place] [address] * (ABNORMAL) COMPREHENSIVE METABOLIC PANEL (08/01/2017 1:00 [...] CDT 08/01/2017 Narrative Resulting Agency Comment [facility] [address] [facility] [id number] Isidro Heredia MD LAB - CHEMISTRY ORD ERABLES [facility] INSURANCE BILL [address] [place] [address] * (ABNORMAL) CBC W AUTO DIFFERENTIAL (08/01/2017 [...] CDT 08/01/2017 Narrative Resulting Agency Comment [facility] [address] [facility] [id number] Isidro Heredia MD LAB - HEMATOLOGY OR DERABLES [facility] INSURANCE BILL [address] [place] [address] documented in this encounter Visit Diagnoses Diagnosis Rheumatoid arthritis involving multiple sites, unspecified rheumatoid factor presence (HCC)- Primary documented in this encounter Care Teams Plastic Mixer Relationship Specialty Start Date End Date Tomas Hyman MD [address] [facility] [address] [place] [address] PCP - General Family Medicine 12/31/13 05/09/18 Isidro Heredia MD Rheumatology 02/09/11 documented as of this encounter
--- OUTSIDE RECORDS SUMMARY | 2024-05-10 18:46 | XMS_ITS | Encounter Summary ---
Author Organization [facility] Address [address] [facility] [place] [address] Care Team Providers Care Site Operations Manager Name Role Phone Isidro Heredia MD Unavailable [phone] Tomas Hyman MD Primary Care Provider [phone] Reason for Visit * Treatment (Routine) - Closed Specialty Diagnoses / Procedures Referred By Lawrence shah Referred To Contact Infusion Therapy Nurse Diagnoses Rheumatoid arthritis without rheumatoid factor, multiple sites (HCC) Procedures [place] INJECTION TOCILIZUMAB 1 MG Isidro Heredia MD [address] [facility] [place] [address] [address] Referral ID Status Reason Start Date Expiration Date Visits Re quested Visits Authorized [id number] Closed 08/07/2016 04/29/2017 1 12 Encounter Details Date Type Department Care Team (Late st Contact Info) Description 02/02/2017 11:40 AM CDT - 02/02/2017 11:59 PM CDT Hospital Encounter [facility] - Rheumatology [address] [place] [address] Isidro Heredia MD [address] [facility] [place] [address] Discharge Disposition: Home or Self [...] Sahu RN - 02/02/2017 12:16 PM CDT [place] Rheumatology Post Infusion instructions [...] through Sunday 9-5 call the office at [phone] After hours or on the weekend call the exchange at [phone] If you have had lab work done [...] - 02/02/2017 12:40 PM CDT JOSE Deng [id number] 02/02/2017 Diagnosis: Rheumatoid arthritis without rheumatoid factor, [...] Contact Info) Description 06/03/2024 1:00 PM FOOD AND BEVERAGE COORDINATOR Appointment [facility] - Rheumatology [address] [place] [address] 06/03/2024 2:00 PM FOOD AND BEVERAGE COORDINATOR Office Visit [facility] - Rheumatology [address] [place] [address] Gloria Smith MD [address] [place] [address] [address] documented as of this encounter Visit Diagnoses [...] mL/hr documented in this encounter Care Teams Site Operations Manager Relationship Specialty Start Date End Date Tomas Hyman MD [address] [facility] [address] [place] [address] PCP - General Family Medicine 12/31/13 05/09/18 Isidro Heredia MD Rheumatology 02/09/11 documented as of this encounter
--- OUTSIDE RECORDS SUMMARY | 2024-05-10 18:46 | XMS_ITS | Encounter Summary ---
Author Organization [facility] Address [address] [facility] [place] [address] Care Team Providers Care [employer] Name Role Phone Isidro Heredia MD Unavailable [phone] Tomas Hyman MD Primary Care Provider [phone] Reason for Visit * Reason Comments Refill Request Encounter Details Date Type Department Care Team (Late Contact Info) Description 06/17/2017 Refill [facility] - Rheumatology [address] [place] [address] Isidro Heredia MD [address] [place] [address] Refill Request Social History Tobacco Use [...] (Late Contact Info) Description 06/03/2024 1:00 PM ROOM SERVICE FOOD SERVER Appointment [facility] - Rheumatology [address] [place] [address] 06/03/2024 2:00 PM ROOM SERVICE FOOD SERVER Office Visit [facility] Rheumatology [address] [place] [address] Gloria Smith MD [address] [place] [address] [address] documented as of this encounter Visit Diagnoses Not on filedocumented in this encounter Care Teams [employer] [place] [employer] Relationship Specialty Start Date End Date Tomas Hyman MD [address] [place] [address] PCP - General Family Medicine 12/31/13 05/09/18 Isidro Heredia MD Rheumatology 02/09/11 documented as of this encounter
--- OUTSIDE RECORDS SUMMARY | 2024-05-10 18:46 | XMS_ITS | Encounter Summary ---
Author Organization [facility] Address [address] [place] [address] Care Team Providers Care Talent Consultant Name Role Phone Isidro Heredia MD Unavailable [phone] Tomas Hyman MD Primary Care Provider [phone] Encounter Details Date Type Department Care Team (Late st Contact Info) Description 03/07/2018 11:15 AM PATCHING MACHINE OPERATOR Office Visit [facility] Medical [facility] - Rheumatology [address] [place] [address] Isidro Heredia MD [address] [place] [address] Subacromial bursitis (Primary Dx); Rheumatoid arthritis [...] Comments Blood Pressure 133/81 03/07/2018 11:38 AM PATCHING MACHINE OPERATOR Pulse 85 03/07/2018 11:38 AM PATCHING MACHINE OPERATOR Temperature - - Respiratory Rate - - Oxygen Saturation - - Inhaled Oxygen Concentration - - Weight 103 kg (227 lb) 03/07/2018 11:38 AM PATCHING MACHINE OPERATOR Height - - Body Mass [...] 1 Tab by mouth once daily ??? Rmfthjtylle-Kcceiusdz-Obx C-Mn (GLUCOSAMINE CHONDR 1500 COMPLX PO) Take [...] Plan: Plan Orders Placed This Encounter ??? [place] DRAIN/INJECT LARGE JOINT/BURSA ??? DISCONTD: oxyCODONE-acetaminophen (PERCOCET) [...] Follow up in office in 8 weeks HING MACHINE OPERATOR documented in this encounter Plan of Treatment Upcoming Encounters Date Type Department Care Team (Late st Contact Info) Description 06/03/2024 1:00 PM PATCHING MACHINE OPERATOR Appointment [facility] - Rheumatology [address] [place] [address] [phone] 06/03/2024 2:00 PM PATCHING MACHINE OPERATOR Office Visit [facility] - Rheumatology [address] [place] [address] Gloria Smith MD [address] [place] [phone] documented as of this encounter Visit [...] at 1615 $ Given 03/07/2018 3:50 PM PATCHING MACHINE OPERATOR Left Shoulder triamcinolone acetonide (KENALOG-40) injection 80 mg 80 mg, Intra-articular, ONCE, 1 dose, On Gabriela 03/07/18 at 1615, Shake well before using. $ Given 03/07/2018 3:51 PM PATCHING MACHINE OPERATOR 80 mg Left Shoulder documented in this encounter Care Teams Talent Consultant Relationship Specialty Start Date End Date Tomas Hyman MD [address] [facility] [address] [place] [address] PCP - General Family Medicine 12/31/13 05/09/18 Isidro Heredia MD Rheumatology 02/09/11 documented as of this encounter
--- OUTSIDE RECORDS SUMMARY | 2024-05-10 18:46 | XMS_ITS | Encounter Summary ---
Author Organization [facility] Address [address] [facility] [place] [address] Care Team Providers Care Registered Dietetic Technician Name Role Phone Isidro Heredia MD Unavailable Tomas Hyman MD Primary Care Provider [phone] Encounter Details Date Type Department Care Team (Late Contact Info) Description 08/01/2017 Orders Only [facility] - Rheumatology [address] [place] [address] Isidro Heredia MD [address] [place] [address] Social History Tobacco Use Types Packs/Day [...] (Late Contact Info) Description 06/03/2024 1:00 PM RIBBON INKER Appointment [facility] - Rheumatology [address] [place] [address] 06/03/2024 2:00 PM RIBBON INKER Office Visit [facility] - Rheumatology [address] [place] [address] Gloria Smith MD [address] [place] [phone] documented as of this encounter Procedures Procedure [...] CDT 08/01/2017 Narrative Resulting Agency Comment [facility] [address] ??[facility] [phone] Isidro Heredia MD LAB - HEMATOLOGY OR DERABLES [facility] INSURANCE BILL [address] [place] [address] * (ABNORMAL) COMPREHENSIVE METABOLIC PANEL (08/01/2017 1:00 [...] CDT 08/01/2017 Narrative Resulting Agency Comment [facility] [address] ??[facility] [phone] Isidro Heredia MD LAB - CHEMISTRY ORD ERABLES [facility] INSURANCE BILL [address] [place] [address] * (ABNORMAL) CBC W AUTO DIFFERENTIAL (08/01/2017 [...] CDT 08/01/2017 Narrative Resulting Agency Comment [facility] [address] [facility] ??[facility] [phone] Isidro Heredia MD LAB - HEMATOLOGY OR DERABLES [facility] INSURANCE BILL [address] [place] [address] documented in this encounter Visit Diagnoses Not on filedocumented in this encounter Care Teams Registered Dietetic Technician Relationship Specialty Start Date End Date Tomas Hyman MD [address] [place] [address] PCP - General Family Medicine 12/31/13 05/09/18 Isidro Heredia MD Rheumatology 02/09/11 documented as of this encounter
--- OUTSIDE RECORDS SUMMARY | 2024-05-10 18:46 | XMS_ITS | Encounter Summary ---
Author Organization [facility] Address [address] [facility] [place] [address] Care Team Providers Care Architecture Analyst Name Role Phone Isidro Heredia MD Unavailable [phone] Tomas Hyman MD Primary Care Provider [phone] Reason for Visit * Treatment (Routine) - Closed Specialty Diagnoses / Procedures Referred By Lawrence shah Referred To Contact Infusion Therapy Nurse Diagnoses Rheumatoid arthritis without rheumatoid factor, multiple sites (HCC) Procedures [place] INFLIXIMAB INJECTION Isidro Heredia MD 17 [place] [address] [address] Referral ID Status Reason Start Date Expiration Date Visits Re quested Visits Authorized [id number] Closed 02/28/2018 04/29/2018 1 6 Encounter Details Date Type Department Care Team (Late st Contact Info) Description 03/07/2018 10:54 AM RESEARCH ASSOCIATE MOLECULAR BIOLOGY - 03/07/2018 11:59 PM RESEARCH ASSOCIATE MOLECULAR BIOLOGY Hospital Encounter [facility] Medical [facility] - Rheumatology [address] [place] [address] Isidro Heredia MD 58 [place] [address] Discharge Disposition: Home or Self [...] Comments Blood Pressure 133/81 03/07/2018 11:21 AM RESEARCH ASSOCIATE MOLECULAR BIOLOGY Pulse 85 03/07/2018 11:21 AM RESEARCH ASSOCIATE MOLECULAR BIOLOGY Temperature 36.8 ??C (98.3 ??F) 03/07/2018 11:[address] Respiratory Rate 18 03/07/2018 11:21 AM RESEARCH ASSOCIATE MOLECULAR BIOLOGY Oxygen Saturation - - Inhaled Oxygen Concentration - - Weight 103 kg (227 lb) 03/07/2018 11:21 AM RESEARCH ASSOCIATE MOLECULAR BIOLOGY Height - - Body Mass Index 32.57 01/11/2016 3:12 PM CDT documented in this encounter Discharge Instructions * Discharge Instructions* Jody Sahu RN - 03/07/2018 12:07 PM RESEARCH ASSOCIATE MOLECULAR BIOLOGY [place] Rheumatology Post Infusion instructions You have [...] through Sunday 9-5 call the office at [phone] After hours or on the weekend call the exchange at [phone] If you have had lab work done [...] as your provider. Jody Sahu RN ARCH ASSOCIATE MOLECULAR BIOLOGY documented in this encounter Medications at Time [...] - 03/07/2018 11:46 AM CST JOSE Deng [id number] 03/07/2018 Diagnosis: Rheumatoid arthritis without rheumatoid factor, multiple sites [M06.09]. Pt denies symptoms of infection or antibiotic use, no open wounds, or recent surgery, or plans for surgery in the next couple of weeks. Pt is aware that we use the 0-10 pain scale to assess discomfort. 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 front end application developer pt signs consent for treatment for [...] without any symptoms hypersensitivity. Jody Sahu RN ARCH ASSOCIATE MOLECULAR BIOLOGY documented in this encounter Plan of Treatment Upcoming Encounters Date Type Department Care Team (Late st Contact Info) Description 06/03/2024 1:00 PM RESEARCH ASSOCIATE MOLECULAR BIOLOGY Appointment [facility] - Rheumatology [address] [place] [address] [phone] 06/03/2024 2:00 PM RESEARCH ASSOCIATE MOLECULAR BIOLOGY Office Visit [facility] - Rheumatology [address] [place] [address] [phone] Gloria Smith MD [address] [place] [phone] documented as of this encounter Visit [...] filter. $ New Bag/Syringe 03/07/2018 11:35 AM RESEARCH ASSOCIATE MOLECULAR BIOLOGY 300 mg 10 mL/hr documented in this encounter Care Teams Architecture Analyst Relationship Specialty Start Date End Date Tomas Hyman MD [address] [facility] [address] [place] [address] PCP - General Family Medicine 12/31/13 05/09/18 Isidro Heredia MD Rheumatology 02/09/11 documented as of this encounter
--- OUTSIDE RECORDS SUMMARY | 2024-05-10 18:46 | XMS_ITS | Encounter Summary ---
Author Organization [facility] Address [address] [facility] [address] Care Team Providers Care Die Cast Technician Name Role Phone Isidro Heredia MD Unavailable [phone] Tomas Hyman MD Primary Care Provider [phone] Encounter Details Date Type Department Care Team (Late st Contact Info) Description 03/08/2017 3:56 PM PROPERTY MANAGER - 03/08/2017 11:59 PM [facility] Hospital Encounter [facility] - Medical Imaging [address] [place] [address] Isidro Heredia MD [address] [place] [address] Discharge Disposition: Home or Self Care [...] Contact Info) Description 06/03/2024 1:00 PM PROPERTY MANAGER Appointment [facility] - Rheumatology [address] [place] [address] [phone] 06/03/2024 2:00 PM PROPERTY MANAGER Office Visit [facility] - Rheumatology [address] [place] [address] [phone] Gloria Smith MD [address] [place] [phone] documented as of this encounter Procedures Procedure Name Priority Date/Time Associated Diagnosis Comments XR ANKLE BILAT 2VW Routine 03/08/2017 4: 07 PM PROPERTY MANAGER Chronic pain syndrome documented in this encounter Results * XR ANKLE BILAT 2 VIEWS (03/08/2017 4:07 PM PROPERTY MANAGER) Anatomical Region Laterality Modality Ankle / Foot, Lower Extremity Ra diographic Imaging 03/08/2017 4:14 PM PROPERTY MANAGER Impressions 03/08/2017 4:15 PM PROPERTY MANAGER No fracture. Narrative 03/08/2017 4:15 PM PROPERTY MANAGER Bilateral ankles 2 views INDICATION: Ankle pain [...] syndrome documented in this encounter Care Teams Die Cast Technician Relationship Specialty Start Date End Date Tomas Hyman MD [address] [place] [address] PCP - General Family Medicine 12/31/13 05/09/18 Isidro Heredia MD Rheumatology 02/09/11 documented as of this encounter
--- OUTSIDE RECORDS SUMMARY | 2024-05-10 18:46 | XMS_ITS | Encounter Summary ---
Author Organization [facility] Address [address] [facility] [place] [address] Care Team Providers Care Automobile Mechanic Name Role Phone Isidro Heredia MD Unavailable [phone] Tomas Hyman MD Primary Care Provider [phone] Reason for Visit * Treatment (Routine) - Closed Specialty Diagnoses / Procedures Referred By Lawrence shah Referred To Contact Infusion Therapy Nurse Diagnoses Rheumatoid arthritis without rheumatoid factor, multiple sites (HCC) Procedures [place] INJECTION TOCILIZUMAB 1 MG Isidro Heredia MD [address] [facility] [place] [address] [address] Referral ID Status Reason Start Date Expiration Date Visits Re quested Visits Authorized [id number] Closed 05/11/2017 04/29/2018 1 13 Encounter Details Date Type Department Care Team (Late st Contact Info) Description 10/24/2017 1:17 PM CDT - 10/24/2017 11:59 PM CDT Hospital Encounter [facility] - Rheumatology [address] [place] [address] Isidro Heredia MD [address] [place] [address] Discharge Disposition: Home or Self [...] Sahu RN - 10/24/2017 1:51 PM CDT [place] Rheumatology Post Infusion instructions [...] Sunday through 01-02 call the office at [phone] After hours or on the weekend call the exchange at [phone] If you have had lab work done [...] 10/24/2017 2:10 PM CDT JOSE Allred Deng [id number] 10/24/2017 Diagnosis: Rheumatoid arthritis without rheumatoid factor, multiple sites [M06.09]. Pt denies symptoms of infection or antibiotic use, no open wounds, or recent surgery, or plans for surgery in the next couple of weeks. Pt is aware that we use the 0-10 pain scale to assess discomfort. 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 front man pt signs consent for treatment for this [...] st Contact Info) Description 06/03/2024 1:00 PM SEA AIR LAND OFFICER Appointment [facility] - Rheumatology [address] [place] [address] [phone] 06/03/2024 2:00 PM SEA AIR LAND OFFICER Office Visit [facility] - Rheumatology [address] [place] [address] [phone] Gloria Smith MD [address] [place] [phone] documented as of this encounter Visit Diagnoses [...] documented in this encounter Care Teams Automobile Mechanic Relationship Specialty Start Date End Date Tomas Hyman MD [address] [facility] [address] [place] [address] PCP - General Family Medicine 12/31/13 05/09/18 Isidro Heredia MD Rheumatology 02/09/11 documented as of this encounter
--- OUTSIDE RECORDS SUMMARY | 2024-05-10 18:46 | XMS_ITS | Encounter Summary ---
Author Organization [facility] Address [address] [place] [address] Care Team Providers Care Group Fitness Department Head Name Role Phone Isidro Heredia MD Unavailable [phone] Tomas Hyman MD Primary Care Provider [phone] Reason for Visit * Reason Comments Refill Request Encounter Details Date Type Department Care Team (Late Contact Info) Description 12/16/2016 Refill [facility] - Rheumatology [address] [place] [address] Isidro Heredia MD [address] [place] [address] Refill Request Social History Tobacco Use [...] Info) Description 06/03/2024 1:00 PM DIRECTOR OF MATH Appointment [facility] - Rheumatology [address] [place] [address] 06/03/2024 2:00 PM DIRECTOR OF MATH Office Visit [facility] Rheumatology [address] [place] [address] Gloria Smith MD [address] [place], [place] [address] [address] documented as of this encounter Visit Diagnoses Not on filedocumented in this encounter Care Teams Group Fitness Department Head Relationship Specialty Start Date End Date Tomas Hyman MD [address] [place] [address] PCP - General Family Medicine 12/31/13 05/09/18 Isidro Heredia MD Rheumatology 02/09/11 documented as of this encounter
--- OUTSIDE RECORDS SUMMARY | 2024-05-10 18:46 | XMS_ITS | Encounter Summary ---
Author Organization [facility] Address [address] [facility] [place] [address] Care Team Providers Care Digital Designer Name Role Phone Isidro Heredia MD Unavailable [phone] Tomas Hyman MD Primary Care Provider [phone] Encounter Details Date Type Department Care Team (Late Contact Info) Description 12/18/2017 Orders Only [facility] - Rheumatology [address] [place] [address] Isidro Heredia MD [address] [place] [address] Encounter for long-term (current) use of [...] Contact Info) Description 06/03/2024 1:00 PM CREDIT CHARGE AUTHORIZER Appointment [facility] - Rheumatology [address] [place] [address] 06/03/2024 2:00 PM CREDIT CHARGE AUTHORIZER Office Visit [facility] Rheumatology [address] [place] [address] Song, Gloria, MD [address] [place], [place] [address], [place] [address] documented as of this encounter Procedures Procedure [...] CDT 12/19/2017 Narrative Resulting Agency Comment [facility] [place] [address] ??[place] [id number] Isidro Heredia MD LAB - CHEMISTRY ORD ERABLES Performing Organization Address [facility] Co de Phone Number [email or web address] INSURANCE BILL [address] [place] [address] * ERYTHROCYTE SEDIMENTATION RATE (12/19/2017 1:00 PM CDT) Erythrocyte Sedimentation Rate Westergren 3 0 - 30 mm/hr [facility] INSURANCE BILL Blood BLOOD SPECIMEN / Unknown 12/19/2017 1:00 PM CDT 12/19/2017 Narrative Resulting Agency [facility] [address] ??[place] [id number] Isidro Heredia MD LAB - HEMATOLOGY OR DERABLES Performing Organization Address [facility] Co de Phone Number [facility] INSURANCE BILL [address] [place] [address] * (ABNORMAL) COMPREHENSIVE METABOLIC PANEL (12/19/2017 1:00 [...] CDT 12/19/2017 Narrative Resulting Agency Comment [facility] [address] [facility] ??[facility] [phone] Isidro Heredia MD LAB - CHEMISTRY ORD ERABLES [facility] INSURANCE BILL [address] [place] [address] * (ABNORMAL) CBC WITH DIFFERENTIAL (12/19/2017 1:00 [...] CDT 12/19/2017 Narrative Resulting Agency Comment [facility] [place] [address] [facility] ??[facility] [phone] Isidro Heredia MD LAB - HEMATOLOGY OR DERABLES [facility] INSURANCE BILL [address] [place] [address] documented in this encounter Visit Diagnoses Diagnosis Encounter for long-term (current) use of medications- Primary Encounter for long-term (current) use of other medications documented in this encounter Care Teams Digital Designer Relationship Specialty Start Date End Date Tomas Hyman MD [address] [facility] [address] [place] [address] PCP - General Family Medicine 12/31/13 05/09/18 Isidro Heredia MD Rheumatology 02/09/11 documented as of this encounter
--- OUTSIDE RECORDS SUMMARY | 2024-05-10 18:46 | XMS_ITS | Encounter Summary ---
Author Organization [facility] Address [address] [facility] [place] [address] Care Team Providers Care Liquefaction Supervisor Name Role Phone Isidro Heredia MD Unavailable [phone] Tomas Hyman MD Primary Care Provider [phone] Reason for Visit * Reason Onset Date Comments MEDICATION REFILL 12/19/2017 Encounter Details Date Type Department Care Team (Late Contact Info) Description 12/19/2017 Refill [facility] Medical [facility] - Rheumatology [address] [place] [address] [phone] Isidro Heredia MD [address] [place] [address] MEDICATION REFILL Social History Tobacco Use [...] Contact Info) Description 06/03/2024 1:00 PM HEAD TELLER Appointment [facility] - Rheumatology [address] [place] [address] 06/03/2024 2:00 PM HEAD TELLER Office Visit [facility] - Rheumatology [address] [place] [address] Gloria Smith MD [address] [place] [address] documented as of this encounter Visit Diagnoses Not on filedocumented in this encounter Care Teams Liquefaction Supervisor Relationship Specialty Start Date End Date Tomas Hyman MD [address] [place] [address] PCP - General Family Medicine 12/31/13 05/09/18 Isidro Heredia MD Rheumatology 02/09/11 documented as of this encounter
--- OUTSIDE RECORDS SUMMARY | 2024-05-10 18:46 | XMS_ITS | Encounter Summary ---
Author Organization [facility] Address [address] [facility] [place] [address] Care Team Providers Care Clinical Haematologist Name Role Phone Isidro Heredia MD Unavailable [phone] Tomas Hyman MD Primary Care Provider [phone] Reason for Visit * Reason Comments Refill Request Encounter Details Date Type Department Care Team (Late Contact Info) Description 05/13/2017 Refill [facility] - Rheumatology [address] [place] [address] Isidro Heredia MD [address] [place] [address] Refill Request Social History Tobacco Use [...] (Late Contact Info) Description 06/03/2024 1:00 PM ADMINISTRATIVE UNDERWRITER Appointment [facility] - Rheumatology [address] [place] [address] 06/03/2024 2:00 PM ADMINISTRATIVE UNDERWRITER Office Visit [facility] Rheumatology [address] [place] [address] Gloria Smith MD [address] [place], [place] [address] [address] documented as of this encounter Visit Diagnoses Not on filedocumented in this encounter Care Teams Clinical Haematologist Relationship Specialty Start Date End Date Tomas Hyman MD [address] [place] [address] PCP - General Family Medicine 12/31/13 05/09/18 Isidro Heredia MD Rheumatology 02/09/11 documented as of this encounter
--- OUTSIDE RECORDS SUMMARY | 2024-05-10 18:46 | XMS_ITS | Encounter Summary ---
Author Organization [facility] Address [address] [facility] [place] [address] Care Team Providers Care Registered Representative Name Role Phone Isidro Heredia MD Unavailable Tomas Hyman MD Primary Care Provider Encounter Details Date Type Department Care Team (Latest Contact Info) Description 02/22/2017 10:13 AM CDT - 02/22/2017 11:59 PM CDT Hospital Encounter [facility] Pain Care [address] [place] [address] [place] [address] [place] [address] Discharge Disposition: Home or Self Care Social [...] Sierra RN - 02/22/2017 10:22 AM CDT [facility] Pain Discharge Instructions Selective [...] headache, or any other problems, please call [phone] or after hours callDr. Mirza at [phone] and tell them your physician's name. The exchange will alert the physician specifications writer. If sedation is given: No sedation given. [...] st Contact Info) Description 06/03/2024 1:00 PM BORING MACHINE OPERATOR HELPER Appointment [facility] - Rheumatology [address] [place] [address] 06/03/2024 2:00 PM BORING MACHINE OPERATOR HELPER Office Visit [facility] - Rheumatology [address] [place] [address] Gloria Smith MD [address] [place] [address] documented as of this encounter Procedures [...] ? Multiple Vitamin (MULTI-VITAMIN PO) ? ? Vitbzemustr-Upznzqcdu-Xvq C-Mn (GLUCOSAMINE CHONDR 1500 COMPLX PO) ? [...] identified, and marked by Dr. Mirza. ??Responsible piledriver carpenter is not needed due to the patient [...] mg documented in this encounter Care Teams Registered Representative Relationship Specialty Start Date End Date Tomas Hyman MD [address] [facility] [address] [place] [address] PCP - General Family Medicine 12/31/13 05/09/18 Isidro Heredia MD Rheumatology 02/09/11 documented as of this encounter
--- OUTSIDE RECORDS SUMMARY | 2024-05-10 18:46 | XMS_ITS | Encounter Summary ---
Author Organization [facility] Address [address] [facility] [place] [address] Care Team Providers Care Final Inspector Motorcyles Name Role Phone Isidro Heredia MD Unavailable Tomas Hyman MD Primary Care Provider [phone] Encounter Details Date Type Department Care Team (Latest Contact Info) Description 12/28/2016 11:22 AM CDT - 12/28/2016 11:59 PM CDT Hospital Encounter [facility] Pain Care [address] [place] [address] [place] [address] [place] [address] Discharge Disposition: Home or Self Care Social [...] - 12/28/2016 11:41 AM CDT [facility] [...] headache, or any other problems, please call [phone] or after hours callDr. Mirza at [phone] and tell them your physician's name. The exchange will alert the physician medical collections specialist. If sedation is given: No sedation given. For Your Next Visit: No additional instructions. Other Instructions: May remove band-aid in 12 Hours. Return in 2 weeks for KIMBERLEY #3. documented in this encounter Medications at Time of Discharge Medication Sig Dispensed Refills Start Date End Date atorvastatin (LIPITOR) 40 MG tablet Take 1 (one) tablet by mouth at bedtime Xcwlcajgfso-Gnmlpzfqz-A it C-Mn (GLUCOSAMINE CHONDR 1500 COMPLX PO) [...] Coumadin, Plavix or other blood thinners. Responsible wrecking car driver is not needed due to [...] Description 06/03/2024 1:00 PM MDS MANAGER Appointment [facility] - Rheumatology [address] [place] [address] [phone] 06/03/2024 2:00 PM MDS MANAGER Office Visit [facility] - Rheumatology [address] [place] [address] [phone] Gloria Smith MD [address] [place] [phone] documented as of this encounter Procedures Procedure [...] Coumadin, Plavix or other blood thinners. ??Responsible wrecking car driver is not needed due to [...] Back documented in this encounter Care Teams Final Inspector Motorcyles Relationship Specialty Start Date End Date Tomas Hyman MD [address] [facility] [address] [place] [address] PCP - General Family Medicine 12/31/13 05/09/18 Isidro Heredia MD Rheumatology 02/09/11 documented as of this encounter
--- OUTSIDE RECORDS SUMMARY | 2024-05-10 18:46 | XMS_ITS | Encounter Summary ---
Author Organization [facility] Address [address] [facility] [place] [address] Care Team Providers Care Bottom Sprayer Name Role Phone Isidro Heredia MD Unavailable [phone] Tomas Hyman MD Primary Care Provider [phone] Reason for Visit * Treatment (Routine) - Closed Specialty Diagnoses / Procedures Referred By Lawrence shah Referred To Contact [place] [address] [address] [facility] [address] [place] [address] Referral ID Status Reason Start Date Expiration Date Visits Re quested Visits Authorized [id number] Closed 12/21/2016 06/19/2017 1 3 Encounter Details Date Type Department Care Team (Latest Contact Info) Description 12/28/2016 11:15 AM CDT - 12/28/2016 11:21 AM T Hospital Encounter [facility] Pain Care [address] [place] [address] [place] [address] [address] Discharge Disposition: Home or Self [...] 1 (one) tablet by mouth at bedtime Jtiwqewmqho-Enxsdwful-K it C-Mn (GLUCOSAMINE CHONDR 1500 COMPLX PO) [...] Info) Description 06/03/2024 1:00 PM SEWING MACHINE OPERATOR FLOORPERSON Appointment [facility] - Rheumatology [address] [place] [address] [phone] 06/03/2024 2:00 PM SEWING MACHINE OPERATOR FLOORPERSON Office Visit [facility] - Rheumatology [address] [place] [address] [phone] Gloria Smith MD [address] [place] [phone] documented as of this encounter Visit Diagnoses Not on filedocumented in this encounter Care Teams Bottom Sprayer Relationship Specialty Start Date End Date Tomas Hyman MD [address] [facility] [address] [place] [address] PCP - General Family Medicine 12/31/13 05/09/18 Isidro Heredia MD Rheumatology 02/09/11 documented as of this encounter
--- OUTSIDE RECORDS SUMMARY | 2024-05-10 18:47 | XMS_ITS | Encounter Summary ---
Author Organization [facility] Address [address] [place] [address] Care Team Providers Care Human Resources Professional Name Role Phone Isidro Heredia MD Unavailable [phone] Tomas Hyman MD Primary Care Provider [phone] Reason for Visit * Reason Comments Refill Request Encounter Details Date Type Department Care Team (Late Contact Info) Description 05/23/2016 Refill [facility] - Rheumatology [address] [place] [address] Isidro Heredia MD [address] [place] [address] Refill Request Social History Tobacco Use [...] (Late Contact Info) Description 06/03/2024 1:00 PM ABSORPTION PLANT OPERATOR HELPER Appointment [facility] - Rheumatology [address] [place] [address] 06/03/2024 2:00 PM ABSORPTION PLANT OPERATOR HELPER Office Visit [facility] Rheumatology [address] [place] [address] Gloria Smith MD [address] [place], [place] [address] [address] documented as of this encounter Visit Diagnoses Not on filedocumented in this encounter Care Teams Human Resources Professional Relationship Specialty Start Date End Date Tomas Hyman MD [address] [place] [address] PCP - General Family Medicine 12/31/13 05/09/18 Isidro Heredia MD Rheumatology 02/09/11 documented as of this encounter
--- OUTSIDE RECORDS SUMMARY | 2024-05-10 18:47 | XMS_ITS | Encounter Summary ---
Author Organization [facility] Address [address] [facility] [place] [address] Care Team Providers Care Keeler Polygraph Operator Name Role Phone Isidro Heredia MD Unavailable [phone] Tomas Hyman MD Primary Care Provider [phone] Reason for Visit * Treatment (Routine) - Closed Specialty Diagnoses / Procedures Referred By Lawrence shah Referred To Contact Infusion Therapy Nurse Diagnoses Rheumatoid arthritis without rheumatoid factor, multiple sites (HCC) Procedures [place] INJECTION TOCILIZUMAB 1 MG Isidro Heredia MD [address] [place] [address] [address] Referral ID Status Reason Start Date Expiration Date Visits Re quested Visits Authorized [id number] Closed 12/16/2015 06/07/2016 1 6 Encounter Details Date Type Department Care Team (Late st Contact Info) Description 06/01/2016 1:13 PM REHANGER - 06/01/2016 11:59 PM REHANGER Hospital Encounter [facility] Medical [facility] - Rheumatology [address] [place] [address] Isidro Heredia MD [address] [place] [address] Discharge Disposition: Home or Self [...] Comments Blood Pressure 120/76 06/01/2016 1:42 PM REHANGER Pulse 85 06/01/2016 1:42 PM REHANGER Temperature 36.9 ??C (98.4 ??F) 06/01/2016 1:42 PM CS T Respiratory Rate 16 06/01/2016 1:42 PM REHANGER Oxygen Saturation - - Inhaled Oxygen Concentration - - Weight 119.3 kg (263 lb) 06/01/2016 1:42 PM REHANGER Height - - Body Mass Index 37.74 01/11/2016 3:12 PM CDT documented in this encounter Discharge Instructions * Discharge Instructions* Jody Sahu RN - 06/01/2016 1:46 PM REHANGER [place] Rheumatology Post Infusion instructions You have [...] Sunday through 01-02 call the office at [phone] After hours or on the weekend call the exchange at [phone] If you have had lab work done [...] Hospital as your provider. Jody Sahu RN NGER documented in this encounter Medications at Time of Discharge Medication Sig Dispensed Refills Start Date End Date atorvastatin (LIPITOR) 40 MG tablet Take 1 (one) tablet by mouth at bedtime Yiuieylkrgk-Vczpjefim-E it C-Mn (GLUCOSAMINE CHONDR 1500 COMPLX PO) [...] - 06/01/2016 1:59 PM CST JOSE Deng [id number] 06/01/2016 Diagnosis: Rheumatoid arthritis without rheumatoid factor, multiple sites [M06.09]. Pt denies symptoms of infection or antibiotic use, no open wounds, or recent surgery, or plans for surgery in the next couple of weeks. Pt is aware that we use the 0-10 pain scale to assess discomfort. 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 4 weeks Jody Sahu RN NGER documented in this encounter Plan of Treatment Upcoming Encounters Date Type Department Care Team (Late st Contact Info) Description 06/03/2024 1:00 PM REHANGER Appointment [facility] - Rheumatology [address] [place] [address] 06/03/2024 2:00 PM REHANGER Office Visit [facility] - Rheumatology [address] [place] [address] Gloria Smith MD [address] [place] [phone] documented as of this encounter Visit Diagnoses [...] 24hrs RT $ Given 06/01/2016 1:55 PM REHANGER 800 mg documented in this encounter Care Teams Keeler Polygraph Operator Relationship Specialty Start Date End Date Tomas Hyman MD [address] [facility] [address] [place] [address] PCP - General Family Medicine 12/31/13 05/09/18 Isidro Heredia MD Rheumatology 02/09/11 documented as of this encounter
--- OUTSIDE RECORDS SUMMARY | 2024-05-10 18:47 | XMS_ITS | Encounter Summary ---
Author Organization [facility] Address [address] [facility] [place] [address] Care Team Providers Care Die Designer Name Role Phone Isidro Heredia MD Unavailable [phone] Tomas Hyman MD Primary Care Provider [phone] Reason for Visit * Treatment (Routine) - Closed Specialty Diagnoses / Procedures Referred By Lawrence shah Referred To Contact Infusion Therapy Nurse Diagnoses Rheumatoid arthritis without rheumatoid factor, multiple sites (HCC) Procedures [place] INJECTION TOCILIZUMAB 1 MG Isidro Heredia MD [address] [facility] [place] [place] [address] [address] Referral ID Status Reason Start Date Expiration Date Visits Re quested Visits Authorized [id number] Closed 06/26/2016 07/28/2016 1 6 Encounter Details Date Type Department Care Team (Late st Contact Info) Description 07/27/2016 1:00 PM CDT - 07/27/2016 11:59 PM CDT Hospital Encounter [facility] Medical [facility] - Rheumatology [address] [place] [address] Isidro Heredia MD [address] [place] [address] Discharge Disposition: Home or Self [...] Sahu RN - 07/27/2016 1:21 PM CDT [place] Rheumatology Post Infusion instructions [...] Sunday through 01-02 call the office at [phone] After hours or on the weekend call the exchange at [phone] If you have had lab work done [...] 1 (one) tablet by mouth at bedtime Oqxkuysszpn-Abzusxvei-M it C-Mn (GLUCOSAMINE CHONDR 1500 COMPLX PO) [...] - 07/27/2016 1:36 PM CDT JOSE Deng [id number] 07/27/2016 Diagnosis: Rheumatoid arthritis without rheumatoid factor, [...] st Contact Info) Description 06/03/2024 1:00 PM SUCTION DREDGE DUMPING SUPERVISOR Appointment [facility] - Rheumatology [address] [place] [address] 06/03/2024 2:00 PM SUCTION DREDGE DUMPING SUPERVISOR Office Visit [facility] - Rheumatology [address] [place] [address] Gloria Smith MD [address] [place] [phone] documented as of this encounter Visit [...] mg documented in this encounter Care Teams Die Designer Relationship Specialty Start Date End Date Tomas Hyman MD [address] [place] [address] PCP - General Family Medicine 12/31/13 05/09/18 Isidro Heredia MD Rheumatology 02/09/11 documented as of this encounter
--- OUTSIDE RECORDS SUMMARY | 2024-05-10 18:47 | XMS_ITS | Encounter Summary ---
Author Organization [facility] Address [address] [facility] [place] [address] Care Team Providers Care Finish Opener Name Role Phone Isidro Heredia MD Unavailable [phone] Tomas Hyman MD Primary Care Provider [phone] Reason for Visit * Reason Comments Refill Request Encounter Details Date Type Department Care Team (Late Contact Info) Description 09/24/2015 Refill [facility] - Rheumatology [address] [place] [address] Isidro Heredia MD [address] [place] [address] Refill Request Social History Tobacco Use [...] (Late Contact Info) Description 06/03/2024 1:00 PM CISCO ENGINEER Appointment [facility] - Rheumatology [address] [place] [address] 06/03/2024 2:00 PM CISCO ENGINEER Office Visit [facility] Rheumatology [address] [place] [address] Gloria Smith MD [address] [place], [place] [address] [address] documented as of this encounter Visit Diagnoses Not on filedocumented in this encounter Care Teams Finish Opener Relationship Specialty Start Date End Date Tomas Hyman MD [address] [place] [address] PCP - General Family Medicine 12/31/13 05/09/18 Isidro Heredia MD Rheumatology 02/09/11 documented as of this encounter
--- OUTSIDE RECORDS SUMMARY | 2024-05-10 18:47 | XMS_ITS | Encounter Summary ---
Author Organization [facility] Address [address] [place] [address] Care Team Providers Care Biology Lecturer Name Role Phone Isidro Heredia MD Unavailable Tomas Hyman MD Primary Care Provider [phone] Reason for Visit * Treatment (Routine) - Closed Specialty Diagnoses / Procedures Referred By Lawrence shah Referred To Contact Infusion Therapy Nurse Diagnoses Rheumatoid arthritis without rheumatoid factor, multiple sites (HCC) Procedures [place] INJECTION TOCILIZUMAB 1 MG Isidro Heredia MD [address] [place] [address] [phone] Referral ID Status Reason Start Date Expiration Date Visits Re quested Visits Authorized [id number] Closed 12/16/2015 06/07/2016 1 6 Encounter Details Date Type Department Care Team (Late st Contact Info) Description 02/23/2016 1:23 PM CDT - 02/23/2016 11:59 PM CDT Hospital Encounter [facility] Medical [facility] - Rheumatology [address] [place] [address] Isidro Heredia MD [address] [facility] [place] [address] Discharge Disposition: Home or Self [...] Sahu RN - 02/23/2016 2:03 PM CDT [place] Rheumatology Post Infusion instructions [...] Sunday through Sunday-5 call the office at [phone] After hours or on the weekend call the exchange at [phone] If you have had lab work done [...] 1 (one) tablet by mouth at bedtime Hyctgkjdehn-Ulthqjxll-I it C-Mn (GLUCOSAMINE CHONDR 1500 COMPLX PO) [...] 02/23/2016 1:58 PM CDT JOSE Chalino Deng [id number] 02/23/2016 Diagnosis: Rheumatoid arthritis without rheumatoid factor, [...] st Contact Info) Description 06/03/2024 1:00 PM BILLER Appointment [facility] - Rheumatology [address] [place] [address] 06/03/2024 2:00 PM BILLER Office Visit [facility] - Rheumatology [address] [place] [address] Gloria Smith MD [address] [place] [phone] documented as of this encounter Visit Diagnoses [...] mg documented in this encounter Care Teams Biology Lecturer Relationship Specialty Start Date End Date Tomas Hyman MD [address] [facility] [address] [place] [address] PCP - General Family Medicine 12/31/13 05/09/18 Isidro Heredia MD Rheumatology 02/09/11 documented as of this encounter
--- OUTSIDE RECORDS SUMMARY | 2024-05-10 18:47 | XMS_ITS | Encounter Summary ---
Author Organization [facility] Address [address] [facility] [place] [address] Care Team Providers Care Route Service Manager Name Role Phone Isidro Heredia MD Unavailable [phone] Tomas Hyman MD Primary Care Provider [phone] Reason for Visit * Treatment (Routine) - Closed Specialty Diagnoses / Procedures Referred By Lawrence shah Referred To Contact Infusion Therapy Nurse Diagnoses Rheumatoid arthritis without rheumatoid factor, multiple sites (HCC) Procedures [place] INJECTION TOCILIZUMAB 1 MG Isidro Heredia MD 14 [place] [address] [address] Referral ID Status Reason Start Date Expiration Date Visits Re quested Visits Authorized [id number] Closed 12/16/2015 06/07/2016 1 6 Encounter Details Date Type Department Care Team (Late st Contact Info) Description 04/06/2016 1:57 PM EXTRACTOR OPERATOR SOLVENT PROCESS - 04/06/2016 11:59 PM EXTRACTOR OPERATOR SOLVENT PROCESS Hospital Encounter [facility] Medical [facility] - Rheumatology [address] [place] [address] Isidro Heredia MD [address] [place] [address] Discharge Disposition: Home or Self [...] Comments Blood Pressure 145/74 04/06/2016 3:05 PM EXTRACTOR OPERATOR SOLVENT PROCESS Pulse 92 04/06/2016 3:05 PM EXTRACTOR OPERATOR SOLVENT PROCESS Temperature 37 ??C (98.6 ??F) 04/06/2016 2:24 PM EXTRACTOR OPERATOR SOLVENT PROCESS Respiratory Rate 16 04/06/2016 2:24 PM EXTRACTOR OPERATOR SOLVENT PROCESS Oxygen Saturation - - Inhaled Oxygen Concentration - - Weight - - Height - - Body Mass Index - - documented in this encounter Discharge Instructions * Discharge Instructions* Jody Sahu RN - 04/06/2016 2:39 PM EXTRACTOR OPERATOR SOLVENT PROCESS [place] Rheumatology Post Infusion instructions You have [...] through Sunday 9-5 call the office at [phone] After hours or on the weekend call the exchange at [phone] If you have had lab work done [...] Hospital as your provider. Jody Sahu RN ACTOR OPERATOR SOLVENT PROCESS documented in this encounter Medications at Time of Discharge Medication Sig Dispensed Refills Start Date End Date atorvastatin (LIPITOR) 40 MG tablet Take 1 (one) tablet by mouth at bedtime Wpefuqlivtc-Ofwyiayti-M it C-Mn (GLUCOSAMINE CHONDR 1500 COMPLX PO) [...] - 04/06/2016 3:04 PM CST JOSE Deng [id number] 04/06/2016 Diagnosis: Rheumatoid arthritis without rheumatoid factor, [...] Next treatment? 4 weeks Jody Sahu RN ACTOR OPERATOR SOLVENT PROCESS documented in this encounter Plan of Treatment Upcoming Encounters Date Type Department Care Team (Late st Contact Info) Description 06/03/2024 1:00 PM EXTRACTOR OPERATOR SOLVENT PROCESS Appointment [facility] - Rheumatology [address] [place] [address] 06/03/2024 2:00 PM EXTRACTOR OPERATOR SOLVENT PROCESS Office Visit [facility] - Rheumatology [address] [place] [address] Gloria Smith MD [address] [place] [phone] documented as of this encounter Visit [...] 24hrs RT $ Given 04/06/2016 2:50 PM EXTRACTOR OPERATOR SOLVENT PROCESS 800 mg documented in this encounter Care Teams Route Service Manager Relationship Specialty Start Date End Date Tomas Hyman MD [address] [place] [address] PCP - General Family Medicine 12/31/13 05/09/18 Isidro Heredia MD Rheumatology 02/09/11 documented as of this encounter
--- OUTSIDE RECORDS SUMMARY | 2024-05-10 18:47 | XMS_ITS | Encounter Summary ---
Author Organization [facility] Address [address] [facility] [place] [address] Care Team Providers Care Fire Dispatcher Name Role Phone Isidro Heredia MD Unavailable [phone] Tomas Hyman MD Primary Care Provider [phone] Reason for Visit * Reason Comments Refill Request Encounter Details Date Type Department Care Team (Late Contact Info) Description 07/07/2016 Refill [facility] - Rheumatology [address] [place] [address] Isidro Heredia MD [address] [place] [address] Refill Request Social History Tobacco Use [...] (Late Contact Info) Description 06/03/2024 1:00 PM FLIGHT READINESS TECHNICIAN Appointment [facility] - Rheumatology [address] [place] [address] 06/03/2024 2:00 PM FLIGHT READINESS TECHNICIAN Office Visit [facility] Rheumatology [address] [place] [address] Gloria Smith MD [address] [place] [address] [address] documented as of this encounter Visit Diagnoses Not on filedocumented in this encounter Care Teams Fire Dispatcher Relationship Specialty Start Date End Date Tomas Hyman MD [address] [place] [address] PCP - General Family Medicine 12/31/13 05/09/18 Isidro Heredia MD Rheumatology 02/09/11 documented as of this encounter
--- OUTSIDE RECORDS SUMMARY | 2024-05-10 18:47 | XMS_ITS | Encounter Summary ---
Author Organization [facility] Address [address] [facility] [place] [address] Care Team Providers Care Electric Refrigerator Preparer Name Role Phone Isidro Heredia MD Unavailable [phone] Tomas Hyman MD Primary Care Provider [phone] Reason for Visit * Reason Onset Date Comments MEDICATION REFILL 04/05/2016 Encounter Details Date Type Department Care Team (Late Contact Info) Description 04/05/2016 Refill [facility] - Rheumatology [address] [place] [address] Isidro Heredia MD [address] [place] [address] MEDICATION REFILL Social History Tobacco Use [...] (Late Contact Info) Description 06/03/2024 1:00 PM COPY MACHINE OPERATOR Appointment [facility] - Rheumatology [address] [place] [address] 06/03/2024 2:00 PM COPY MACHINE OPERATOR Office Visit [facility] - Rheumatology [address] [place] [address] Gloria Smith MD [address] [place] [address] documented as of this encounter Visit Diagnoses Diagnosis Rheumatoid arthritis of multiple 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 factor (HCC) Rheumatoid arthritis documented in this encounter Care Teams Electric Refrigerator Preparer Relationship Specialty Start Date End Date Tomas Hyman MD [address] [place] [address] PCP - General Family Medicine 12/31/13 05/09/18 Isidro Heredia MD Rheumatology 02/09/11 documented as of this encounter
--- OUTSIDE RECORDS SUMMARY | 2024-05-10 18:47 | XMS_ITS | Encounter Summary ---
Author Organization [facility] Address [address] [facility] [place] [address] Care Team Providers Care Second Baker Name Role Phone Isidro Heredia MD Unavailable [phone] Tomas Hyman MD Primary Care Provider Encounter Details Date Type Department Care Team (Late st Contact Info) Description 08/24/2016 Orders Only [facility] Medical [facility] - Rheumatology [address] [place] [address] [phone] Isidro Heredia MD [address] [place] [address] Rheumatoid arthritis involving right shoulder with [...] Contact Info) Description 06/03/2024 1:00 PM TRAFFIC ATTENDANT Appointment [facility] - Rheumatology [address] [place] [address] 06/03/2024 2:00 PM TRAFFIC ATTENDANT Office Visit [facility] - Rheumatology [address] [place] [address] Gloria Smith MD [address] [place] [phone] documented as of this encounter Procedures [...] CDT 08/24/2016 Narrative Resulting Agency Comment [facility] [address] ??[facility] [id number] Isidro Heredia MD LAB - CHEMISTRY ORD ERABLES [facility] INSURANCE BILL [address] [place] [address] * SED RATE AUTO (ESR) (08/24/2016 1:00 PM CDT) Erythrocyte Sedimentation Rate Westergren 6 0 - 30 mm/hr [facility] INSURANCE BILL Blood BLOOD SPECIMEN / Unknown 08/24/2016 1:00 PM CDT 08/24/2016 Narrative Resulting Agency Comment [facility] [id number] [facility] ??[facility] [id number] Isidro Heredia MD LAB - HEMATOLOGY OR DERABLES Performing Organization Address City/[facility]/ZIP Co de Phone Number [facility] INSURANCE BILL [address] [place] [address] * (ABNORMAL) COMPREHENSIVE METABOLIC PANEL (08/24/2016 1:00 [...] CDT 08/24/2016 Narrative Resulting Agency Comment [facility] [address] [facility] ??[facility] [id number] Isidro Heredia MD LAB - CHEMISTRY ORD ERABLES [facility] INSURANCE BILL [address] [place] [address] * CBC W AUTO DIFFERENTIAL (08/24/2016 1:00 [...] CDT 08/24/2016 Narrative Resulting Agency Comment [facility] [address] [facility] ??[facility] [id number] Isidro Heredia MD LAB - HEMATOLOGY OR DERABLES [facility] INSURANCE BILL [address] [place] [address] documented in this encounter Visit Diagnoses Diagnosis 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
--- OUTSIDE RECORDS SUMMARY | 2024-05-10 18:47 | XMS_ITS | Encounter Summary ---
Author Organization [facility] Address [address] [facility] [place] [address] Care Team Providers Care Master Control Technician Name Role Phone Isidro Heredia MD Unavailable [phone] Tomas Hyman MD Primary Care Provider [phone] Reason for Visit * Reason Onset Date Comments MEDICATION REFILL 08/09/2016 Encounter Details Date Type Department Care Team (Late Contact Info) Description 08/09/2016 Refill [facility] - Rheumatology [address] [place] [address] Isidro Heredia MD [address] [place] [address] MEDICATION REFILL Social History Tobacco Use [...] (Late Contact Info) Description 06/03/2024 1:00 PM RPG PROGRAMMER ANALYST Appointment [facility] - Rheumatology [address] [place] [address] 06/03/2024 2:00 PM RPG PROGRAMMER ANALYST Office Visit [facility] - Rheumatology [address] [place] [address] Gloria Smith MD [address] [place] [address] documented as of this encounter Visit Diagnoses Not on filedocumented in this encounter Care Teams Master Control Technician Relationship Specialty Start Date End Date Tomas Hyman MD [address] [place] [address] PCP - General Family Medicine 12/31/13 05/09/18 Isidro Heredia MD Rheumatology 02/09/11 documented as of this encounter
--- OUTSIDE RECORDS SUMMARY | 2024-05-10 18:47 | XMS_ITS | Encounter Summary ---
Author Organization [facility] Address [address] [facility] [place] [address] Care Team Providers Care Sales Intern Name Role Phone Isidro Heredia MD Unavailable [phone] Tmoas Hyman MD Primary Care Provider [phone] Reason for Visit * Reason Comments Refill Request Encounter Details Date Type Department Care Team (Late Contact Info) Description 09/19/2016 Refill [facility] - Rheumatology [address] [place] [address] Isidro Heredia MD [address] [place] [address] Refill Request Social History Tobacco Use [...] Contact Info) Description 06/03/2024 1:00 PM CHIEF LIBRARIAN BRANCH OR DEPARTMENT Appointment [facility] - Rheumatology [address] [place] [address] 06/03/2024 2:00 PM CHIEF LIBRARIAN BRANCH OR DEPARTMENT Office Visit [facility] Rheumatology [address] [place] [address] Gloria Smith MD [address] [place], [place] [address], [place] [address] documented as of this encounter Visit Diagnoses Not on filedocumented in this encounter Care Teams Sales Intern Relationship Specialty Start Date End Date Tomas Hyman MD [address] [place] [address] PCP - General Family Medicine 12/31/13 05/09/18 Isidro Heredia MD Rheumatology 02/09/11 documented as of this encounter
--- OUTSIDE RECORDS SUMMARY | 2024-05-10 18:47 | XMS_ITS | Encounter Summary ---
Author Organization [facility] Address [address] [facility] [place] [address] Care Team Providers Care Nurseryman Assistant Name Role Phone Isidro Heredia MD Unavailable [phone] Tomas Hyman MD Primary Care Provider [phone] Reason for Visit * Reason Comments Refill Request Encounter Details Date Type Department Care Team (Late Contact Info) Description 01/01/2016 Refill [facility] - Rheumatology [address] [place] [address] Ashwini Silverio, PREPARING BOX TENDER-[address] [address] Refill Request Social History Tobacco [...] Contact Info) Description 06/03/2024 1:00 PM EXECUTIVE SEARCH CONSULTANT Appointment [facility] - Rheumatology [address] [place] [address] 06/03/2024 2:00 PM EXECUTIVE SEARCH CONSULTANT Office Visit [facility] Rheumatology [address] [place] [address] Gloria Smith MD [address] [place] [address] documented as of this encounter Visit Diagnoses Not on filedocumented in this encounter Care Teams Nurseryman Assistant Relationship Specialty Start Date End Date Tomas Hyman MD [address] [place] [address] PCP - General Family Medicine 12/31/13 05/09/18 Isidro Heredia MD Rheumatology 02/09/11 documented as of this encounter
--- OUTSIDE RECORDS SUMMARY | 2024-05-10 18:47 | XMS_ITS | Encounter Summary ---
Author Organization [facility] Address [address] [facility] [place] [address] Care Team Providers Care Dehydrogenation Operator Head Name Role Phone Isidro Heredia MD Unavailable [phone] Tomas Hyman MD Primary Care Provider [phone] Reason for Visit * Reason Comments Refill Request Encounter Details Date Type Department Care Team (Late Contact Info) Description 11/18/2016 Refill [facility] - Rheumatology [address] [place] [address] Isidro Heredia MD [address] [place] [address] Refill Request Social History Tobacco Use [...] (Late Contact Info) Description 06/03/2024 1:00 PM ACCOUNTING LECTURER Appointment [facility] - Rheumatology [address] [place] [address] 06/03/2024 2:00 PM ACCOUNTING LECTURER Office Visit [facility] Rheumatology [address] [place] [address] Gloria Smith MD [address] [place], [place] [address] [address] documented as of this encounter Visit Diagnoses Not on filedocumented in this encounter Care Teams Dehydrogenation Operator Head Relationship Specialty Start Date End Date Tomas Hyman MD [address] [place] [address] PCP - General Family Medicine 12/31/13 05/09/18 Isidro Heredia MD Rheumatology 02/09/11 documented as of this encounter
--- OUTSIDE RECORDS SUMMARY | 2024-05-10 18:47 | XMS_ITS | Encounter Summary ---
Author Organization [facility] Address [address] [facility] [place] [address] Care Team Providers Care Felt Washing Machine Tender Name Role Phone Isidro Heredia MD Unavailable [phone] Tomas Hyman MD Primary Care Provider [phone] Reason for Visit * Treatment (Routine) - Closed Specialty Diagnoses / Procedures Referred By Lawrence shah Referred To Contact Infusion Therapy Nurse Diagnoses Rheumatoid arthritis without rheumatoid factor, multiple sites (HCC) Procedures [place] INJECTION TOCILIZUMAB 1 MG Isidro Heredia MD [address] [place] [address] [address] Referral ID Status Reason Start Date Expiration Date Visits Re quested Visits Authorized [id number] Closed 06/26/2016 07/28/2016 1 6 Encounter Details Date Type Department Care Team (Late st Contact Info) Description 06/29/2016 1:30 PM LOG SCALER - 06/29/2016 11:59 PM LOG SCALER Hospital Encounter [facility] Medical [facility] - Rheumatology [address] [place] [address] Isidro Heredia MD [address] [facility] [place] [address] Discharge Disposition: Home or Self [...] Comments Blood Pressure 125/84 06/29/2016 2:00 PM LOG SCALER Pulse 80 06/29/2016 2:00 PM LOG SCALER Temperature 36.8 ??C (98.2 ??F) 06/29/2016 2:00 PM CS T Respiratory Rate 16 06/29/2016 2:00 PM LOG SCALER Oxygen Saturation - - Inhaled Oxygen Concentration - - Weight 116.6 kg (257 lb) 06/29/2016 2:00 PM LOG SCALER Height - - Body Mass Index 36.88 01/11/2016 3:12 PM CDT documented in this encounter Discharge Instructions * Discharge Instructions* Carlos Foreman RN - 06/29/2016 2:22 PM LOG SCALER [place] Rheumatology Post Infusion instructions You have [...] Sunday through 01-02 call the office at [phone] After hours or on the weekend call the exchange at [phone] If you have had lab work done [...] chosen [facility] as your provider. Carlos Foreman RN SCALER documented in this encounter Medications at Time of Discharge Medication Sig Dispensed Refills Start Date End Date atorvastatin (LIPITOR) 40 MG tablet Take 1 (one) tablet by mouth at bedtime Plxbyurjpha-Qpoyjuqll-Q it C-Mn (GLUCOSAMINE CHONDR 1500 COMPLX PO) [...] 06/29/2016 2:17 PM CST JOSE Chalino Deng [id number] 06/29/2016 Diagnosis: Rheumatoid arthritis without rheumatoid factor, [...] Yes Next treatment? 4wk Carlos Foreman RN SCALER documented in this encounter Plan of Treatment Upcoming Encounters Date Type Department Care Team (Late st Contact Info) Description 06/03/2024 1:00 PM LOG SCALER Appointment [facility] - Rheumatology [address] [place] [phone] 06/03/2024 2:00 PM LOG SCALER Office Visit [facility] - Rheumatology [address] [place] [address] [phone] Gloria Smith MD [address] [place] [phone] documented as of this encounter Visit Diagnoses [...] 24hrs RT $ Given 06/29/2016 2:10 PM LOG SCALER 800 mg 100 mL/hr documented in this encounter Care Teams Felt Washing Machine Tender Relationship Specialty Start Date End Date Tomsa Hyman MD [address] [place] [address] PCP - General Family Medicine 12/31/13 05/09/18 Isidro Heredia MD Rheumatology 02/09/11 documented as of this encounter
--- OUTSIDE RECORDS SUMMARY | 2024-05-10 18:47 | XMS_ITS | Encounter Summary ---
Author Organization [facility] Address [address] [place] [address] Care Team Providers Care Door Fitter Name Role Phone Isidro Heredia MD Unavailable [phone] Tomas Hyman MD Primary Care Provider [phone] Reason for Visit * Reason Onset Date Comments Infusion 10/23/2016 Encounter Details Date Type Department Care Team (Late st Contact Info) Description 10/23/2016 Telephone [facility] Medical [facility] - Rheumatology [address] [place] [address] Isidro Heredia MD [address] [place] [address] Infusion Social History Tobacco Use Types [...] Contact Info) Description 06/03/2024 1:00 PM DIGITAL PRINTER OPERATOR Appointment [facility] - Rheumatology [address] [place] [address] 06/03/2024 2:00 PM DIGITAL PRINTER OPERATOR Office Visit [facility] - Rheumatology [address] [place] [address] Gloria Smith MD [address] [place] [phone] documented as of this encounter Visit Diagnoses Not on filedocumented in this encounter Care Teams Door Fitter Relationship Specialty Start Date End Date Tomas Hyman MD [address] [facility] [address] [place] [address] PCP - General Family Medicine 12/31/13 05/09/18 Isidro Heredia MD Rheumatology 02/09/11 documented as of this encounter
--- OUTSIDE RECORDS SUMMARY | 2024-05-10 18:47 | XMS_ITS | Encounter Summary ---
Author Organization [facility] Address [address] [facility] [place] [address] Care Team Providers Care Interactive Project Manager Name Role Phone Isidro Heredia MD Unavailable [phone] Tomas Hyman MD Primary Care Provider [phone] Encounter Details Date Type Department Care Team (Late st Contact Info) Description 01/11/2016 Orders Only [facility] Medical [facility] - Rheumatology [address] [place] [address] [phone] Isidro Heredia MD [address] [place] [address] Rheumatoid arthritis of multiple sites with [...] Contact Info) Description 06/03/2024 1:00 PM LICENSED SOCIAL WORKER Appointment [facility] - Rheumatology [address] [place] [phone] 06/03/2024 2:00 PM LICENSED SOCIAL WORKER Office Visit [facility] - Rheumatology [address] [place] [address] Gloria Smith MD [address] [place] [phone] documented as of this encounter Procedures [...] PM CDT Narrative Resulting Agency Comment [facility] [address] ??[facility] [id number] Isidro Heredia MD LAB - CHEMISTRY ORD [facility] Performing Organization Address City/State/[facility] Co de Phone Number [facility] INSURANCE BILL [address] [place] [address] documented in this encounter Visit Diagnoses Diagnosis Rheumatoid arthritis of multiple sites with negative rheumatoid factor (HCC)- Primary documented in this encounter Care Teams Interactive Project Manager Relationship Specialty Start Date End Date Tomas Hyman MD [address] [place] [address] PCP - General Family Medicine 12/31/13 05/09/18 Isidro Heredia MD Rheumatology 02/09/11 documented as of this encounter
--- OUTSIDE RECORDS SUMMARY | 2024-05-10 18:47 | XMS_ITS | Encounter Summary ---
Author Organization [facility] Address [address] [facility] [place] [address] Care Team Providers Care Torque Tester Name Role Phone Isidro Heredia MD Unavailable [phone] Tomas Hyman MD Primary Care Provider [phone] Reason for Visit * Reason Comments Follow-up Medication Check tocilizumba Medication Problem NExium no longer cov ered ( omeprazole perfered ) Refill Request naproxen Narcotic Refill Percocet Encounter Details Date Type Department Care Team (Late st Contact Info) Description 09/21/2016 2:00 PM CDT Office Visit [facility] - Rheumatology [address] [place] [address] Isidro Heredia MD [address] [place] [address] Chronic right-sided low back pain with [...] 1 Tab by mouth once daily ??? Xjpadcegyrz-Paimmexve-Cdb C-Mn (GLUCOSAMINE CHONDR 1500 COMPLX PO) Take [...] st Contact Info) Description 06/03/2024 1:00 PM FISHING FLOATS ASSEMBLER Appointment [facility] - Rheumatology [address] [place] [address] 06/03/2024 2:00 PM FISHING FLOATS ASSEMBLER Office Visit [facility] - Rheumatology [address] [place] [address] Gloria Smith MD [address] [place] [phone] documented as of this encounter Results * [...] breath documented in this encounter Care Teams Torque Tester Relationship Specialty Start Date End Date Tomas Hyman MD [address] [facility] [address] [place] [address] PCP - General Family Medicine 12/31/13 05/09/18 Isidro Heredia MD Rheumatology 02/09/11 documented as of this encounter
--- OUTSIDE RECORDS SUMMARY | 2024-05-10 18:47 | XMS_ITS | Encounter Summary ---
Author Organization [facility] Address [address] [facility] [place] [address] Care Team Providers Care Fence Maker Name Role Phone Isidro Heredia MD Unavailable [phone] Tomas Hyman MD Primary Care Provider [phone] Reason for Visit * Reason Comments Refill Request Encounter Details Date Type Department Care Team (Late Contact Info) Description 07/20/2016 Refill [facility] - Rheumatology [address] [place] [address] Isidro Heredia MD [address] [place] [address] Refill Request Social History Tobacco Use [...] Info) Description 06/03/2024 1:00 PM PRODUCTION LINE SOLDERER Appointment [facility] - Rheumatology [address] [place] [address] 06/03/2024 2:00 PM PRODUCTION LINE SOLDERER Office Visit [facility] Rheumatology [address] [place] [address] Gloria Smith MD [address] [place], [place] [address], [place] [address] documented as of this encounter Visit Diagnoses Not on filedocumented in this encounter Care Teams Fence Maker Relationship Specialty Start Date End Date Tomas Hyman MD [address] [place] [address] PCP - General Family Medicine 12/31/13 05/09/18 Isidro Heredia MD Rheumatology 02/09/11 documented as of this encounter
--- OUTSIDE RECORDS SUMMARY | 2024-05-10 18:47 | XMS_ITS | Encounter Summary ---
Author Organization [facility] Address [address] [facility] [place] [address] Care Team Providers Care Hospice Clinical Supervisor Name Role Phone Isidro Heredia MD Unavailable [phone] Tomas Hyman MD Primary Care Provider [phone] Encounter Details Date Type Department Care Team (Late Contact Info) Description 11/22/2016 Orders Only [facility] - Rheumatology [address] [place] [address] Isidro Heredia MD [address] [place] [address] Rheumatoid arthritis involving multiple sites, unspecified [...] (Late Contact Info) Description 06/03/2024 1:00 PM CLAM SHOVEL OPERATOR Appointment [facility] - Rheumatology [address] [place] [address] 06/03/2024 2:00 PM CLAM SHOVEL OPERATOR Office Visit [facility] - Rheumatology [address] [place] [address] Gloria Smith MD [address] [place] [phone] documented as of this encounter Procedures Procedure [...] PM CDT 11/23/2016 Narrative Resulting Agency Comment [facility] [address] ??[place] [id number] Isidro Heredia MD LAB - CHEMISTRY ORD ERABLES Performing Organization Address City/[facility]/ZIP Co de Phone Number [facility] INSURANCE BILL [address] [place] [address] * [facility] (11/23/2016 12:30 PM CDT) Erythrocyte Sedimentation Rate Westergren 12 0 - 30 mm/hr [facility] INSURANCE BILL Blood BLOOD SPECIMEN / Unknown 11/23/2016 12:30 PM CDT 11/23/2016 Narrative Resulting Agency Comment [facility] [address] ??[place] [id number] Isidor Heredia MD LAB - HEMATOLOGY OR DERABLES Performing Organization Address City/[facility] Co de Phone Number [facility] INSURANCE BILL [address] [place] [address] * (ABNORMAL) COMPREHENSIVE METABOLIC PANEL (11/23/2016 12:30 [...] CDT 11/23/2016 Narrative Resulting Agency Comment [facility] [address] [facility] ??[facility] [id number] Isidro Heredia MD LAB - CHEMISTRY ORD ERABLES [facility] INSURANCE BILL [address] [place] [address] * (ABNORMAL) CBC W AUTO DIFFERENTIAL (11/23/2016 [...] CDT 11/23/2016 Narrative Resulting Agency Comment [facility] [address] [facility] ??[facility] [id number] Isidro Heredia MD LAB - HEMATOLOGY OR DERABLES [facility] INSURANCE BILL [address] [place] [address] documented in this encounter Visit Diagnoses Diagnosis Rheumatoid arthritis involving multiple sites, unspecified rheumatoid factor presence (HCC)- Primary Hyperlipidemia, unspecified hyperlipidemia type documented in this encounter Care Teams Hospice Clinical Supervisor Relationship Specialty Start Date End Date Tomas Hyman MD [address] [facility] [address] [place] [address] PCP - General Family Medicine 12/31/13 05/09/18 Isidro Heredia MD Rheumatology 02/09/11 documented as of this encounter
--- OUTSIDE RECORDS SUMMARY | 2024-05-10 18:47 | XMS_ITS | Encounter Summary ---
Author Organization [facility] Address [address] [place] [address] Care Team Providers Care Physician Assistant Surgery Name Role Phone Isidro Heredia MD Unavailable [phone] Tomas Hyman MD Primary Care Provider [phone] Encounter Details Date Type Department Care Team (Late Contact Info) Description 06/29/2016 Orders Only [facility] - Rheumatology [address] [place] [address] Isidro Heredia MD [address] [place] [address] Social History Tobacco Use Types Packs/Day [...] (Late Contact Info) Description 06/03/2024 1:00 PM FILM CRITIC Appointment [facility] - Rheumatology [address] [place] [address] 06/03/2024 2:00 PM FILM CRITIC Office Visit [facility] - Rheumatology [address] [place] [address] Gloria Smith MD [address] [place] [phone] documented as of this encounter Visit Diagnoses Not on filedocumented in this encounter Care Teams Physician Assistant Surgery Relationship Specialty Start Date End Date Tomas Hyman MD [address] [facility] [address] [place] [address] PCP - General Family Medicine 12/31/13 05/09/18 Isidro Heredia MD Rheumatology 02/09/11 documented as of this encounter
--- OUTSIDE RECORDS SUMMARY | 2024-05-10 18:47 | XMS_ITS | Encounter Summary ---
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, multiple sites (HCC) Procedures SD INFLIXIMAB INJECTION SD INJECTION TOCILIZUMAB 1 MG Isidro Heredia MD [address] [place] [address] [address] Referral ID Status Reason Start Date Expiration Date Visits Re quested Visits Authorized [id number] Closed 01/07/2015 01/08/2016 1 12 Encounter Details Date Type Department Care Team (Late st Contact Info) Description 09/13/2015 3:13 PM CDT - 09/13/2015 11:59 PM CDT Hospital Encounter [facility] Medical [facility] - Rheumatology [address] [place] [address] Isidro Heredia MD [address] [place] [address] Discharge Disposition: Home or [...] Sahu RN - 09/13/2015 3:44 PM CDT MA Rheumatology Post Infusion instructions [...] through Sunday 9-5 call the office at [phone] After hours or on the weekend call the exchange at [phone] If you have had lab work done [...] Sig Dispensed Refills Start Date End Date Znapllxrdky-Ymcbyycce-Y it C-Mn (GLUCOSAMINE CHONDR 1500 COMPLX PO) [...] - 09/13/2015 4:01 PM CDT JOSE Deng [id number] 09/13/2015 Diagnosis: Rheumatoid arthritis without rheumatoid factor, multiple sites [M06.09]. Pt denies symptoms of infection or antibiotic use, no open wounds, or recent surgery, or plans for surgery in the next couple of weeks. Pt is aware that we use the 0-10 pain scale to assess discomfort. 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 help desk agent pt signs consent for treatment [...] Contact Info) Description 06/03/2024 1:00 PM FIELD LOGISTICS COORDINATOR Appointment [facility] - Rheumatology [address] [place] [address] 06/03/2024 2:00 PM FIELD LOGISTICS COORDINATOR Office Visit [facility] - Rheumatology [address] [place] [address] Gloria Smith MD [address] [place] [phone] documented as of this encounter Visit Diagnoses [...] mL/hr documented in this encounter Care Teams Youth Agent Relationship Specialty Start Date End Date Tomas Hyman MD [address] [facility] [address] [place] [address] PCP - General Family Medicine 12/31/13 05/09/18 Isidro Heredia MD Rheumatology 02/09/11 documented as of this encounter
--- OUTSIDE RECORDS SUMMARY | 2024-05-10 18:47 | XMS_ITS | Encounter Summary ---
Author Organization [facility] Address [address] [facility] [place] [address] Care Team Providers Care Poultry Helper Name Role Phone Isidro Heredia MD Unavailable Tomas Hyman MD Primary Care Provider Reason for Visit * Reason Comments Pain Back chronic * Evaluate & Treat (Routine) - Closed Specialty Diagnoses / Procedures Referred By Lawrence shah Referred To Contact Diagnoses Rheumatoid arthritis, unspecified (HCC) Procedures OK OFFICE VISIT DURING HOURS Tomas Hyman MD [address] [place] [address] Isidro Heredia MD [address] [place] [address] Referral ID Status Reason Start Date Expiration Date Visits Re quested Visits Authorized [id number] Closed 06/08/2015 06/07/2016 6 6 Encounter Details Date Type Department Care Team (Late st Contact Info) Description 01/11/2016 3:15 PM CDT Office Visit [facility] - Rheumatology [address] [place] [address] Isidro Heredia MD [address] [place] [address] Rheumatoid arthritis of multiple sites with [...] 1 Tab by mouth once daily ??? Nrmwywfirma-Xcuucnnlw-Wea C-Mn (GLUCOSAMINE CHONDR 1500 COMPLX PO) Take [...] Contact Info) Description 06/03/2024 1:00 PM CORPORATE TRAVEL AGENT Appointment [facility] - Rheumatology [address] [place] [address] 06/03/2024 2:00 PM CORPORATE TRAVEL AGENT Office Visit [facility] - Rheumatology [address] [place] [address] Gloria Smith MD [address] [place] [phone] documented as of this encounter Visit Diagnoses Diagnosis Rheumatoid arthritis of multiple sites with negative rheumatoid factor (HCC)- Primary Abnormal LFTs Other abnormal blood chemistry Chronic right-sided low back pain with right-sided sciatica Chronic pain syndrome Rheumatoid arthritis of multiple 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 factor (HCC) Rheumatoid arthritis documented in this encounter Care Teams Poultry Helper Relationship Specialty Start Date End Date Tomas Hyman MD [address] [facility] [address] [place] [address] PCP - General Family Medicine 12/31/13 05/09/18 Isidro Heredia MD Rheumatology 02/09/11 documented as of this encounter
--- OUTSIDE RECORDS SUMMARY | 2024-05-10 18:47 | XMS_ITS | Encounter Summary ---
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, multiple sites (HCC) Procedures CT INJECTION TOCILIZUMAB 1 MG Isidro Heredia MD 16 [place] [address] [address] Referral ID Status Reason Start Date Expiration Date Visits Re quested Visits Authorized [id number] Closed 08/07/2016 04/29/2017 1 12 Encounter Details Date Type Department Care Team (Late st Contact Info) Description 09/21/2016 1:30 PM CDT - 09/21/2016 3:45 PM CDT Hospital Encounter [facility] Medical [facility] - Rheumatology [address] [place] [address] Isidro Heredia MD [address] [facility] [place] [address] Discharge Disposition: Home or Self [...] - 09/21/2016 3:04 PM CDT Discharge Instructions [facility] Rheumatology You have received your [...] through Sunday 9-5 call the office at [phone]. After hours or on the weekend call [...] 1 (one) tablet by mouth at bedtime Oitetnqksnx-Mlhmtolcr-Z it C-Mn (GLUCOSAMINE CHONDR 1500 COMPLX PO) [...] Info) Description 06/03/2024 1:00 PM SENIOR WEB ENGINEER Appointment [facility] - Rheumatology [address] [place] [address] 06/03/2024 2:00 PM SENIOR WEB ENGINEER Office Visit [facility] - Rheumatology [address] [place] [address] Gloria Smith MD [address] [place] [phone] documented as of this encounter Visit [...] mg documented in this encounter Care Teams Bioassayist Relationship Specialty Start Date End Date Tomas Hyman MD [address] [place] [address] PCP - General Family Medicine 12/31/13 05/09/18 Isidro Heredia MD Rheumatology 02/09/11 documented as of this encounter
--- OUTSIDE RECORDS SUMMARY | 2024-05-10 18:47 | XMS_ITS | Encounter Summary ---
Author Organization [facility] Address [address] [facility] [address] Care Team Providers Care Header Setup Operator Name Role Phone Isidro Heredia MD Unavailable [phone] Tomas Hyman MD Primary Care Provider [phone] Reason for Visit * Reason Comments Follow-up Encounter Details Date Type Department Care Team (Late st Contact Info) Description 11/23/2016 1:30 PM CDT Office Visit [facility] - Rheumatology [address] [place] [address] Isidro Heredia MD [address] [place] [address] Rheumatoid arthritis of multiple sites with [...] 1 Tab by mouth once daily ??? Gspncuczxen-Dsfgdsraj-Vkq C-Mn (GLUCOSAMINE CHONDR 1500 COMPLX PO) Take [...] st Contact Info) Description 06/03/2024 1:00 PM HEAVY CLEANER Appointment [facility] - Rheumatology [address] [place] [phone] 06/03/2024 2:00 PM HEAVY CLEANER Office Visit [facility] - Rheumatology [address] [place] [address] [phone] Gloria Smith MD [address] [place] [phone] documented as of this encounter Visit Diagnoses Diagnosis Rheumatoid arthritis of multiple sites with negative rheumatoid factor (HCC)- Primary Chronic pain syndrome Chronic right-sided low back pain with right-sided sciatica documented in this encounter Care Teams Header Setup Operator Relationship Specialty Start Date End Date Tomas Hyman MD [address] [facility] [address] [place], [place] [phone] PCP - General Family Medicine 12/31/13 05/09/18 Isidro Hreedia MD Rheumatology 02/09/11 documented as of this encounter
--- OUTSIDE RECORDS SUMMARY | 2024-05-10 18:47 | XMS_ITS | Encounter Summary ---
Author Organization [facility] Address [address] [facility] [place] [address] Care Team Providers Care Gis Application Developer Name Role Phone Isidro Heredia MD Unavailable Tomas Hyman MD Primary Care Provider Reason for Visit * Reason Comments Narcotic Refill percocet * Evaluate & Treat (Routine) - Closed Specialty Diagnoses / Procedures Referred By Contsarahi t Referred To Contact Diagnoses Rheumatoid arthritis, unspecified (HCC) Procedures MD OFFICE VISIT DURING HOURS Tomas Hyman MD [address] [place] [address] Isidro Heredia MD [address] [place] [address] Referral ID Status Reason Start Date Expiration Date Visits Re quested Visits Authorized [id number] Closed 06/15/2016 06/15/2017 6 6 Encounter Details Date Type Department Care Team (Late st Contact Info) Description 07/27/2016 1:30 PM CDT Office Visit [facility] - Rheumatology [address] [place] [address] Isidro Heredia MD [address] [place] [address] Chronic right-sided low back pain with [...] on actemra mtx for ra a and mueu9mwc neuontin skelaxin Pain Level 7/10 right shoulder [...] 1 Tab by mouth once daily ??? Wlepifipogr-Ztjsqxvmc-Pgw C-Mn (GLUCOSAMINE CHONDR 1500 COMPLX PO) Take [...] st Contact Info) Description 06/03/2024 1:00 PM FARM EQUIPMENT TECHNICIAN Appointment [facility] - Rheumatology [address] [place] [address] 06/03/2024 2:00 PM FARM EQUIPMENT TECHNICIAN Office Visit [facility] - Rheumatology [address] [place] [address] [phone] Gloria Smith MD [address] [place] [phone] documented as of this encounter Visit [...] deltoid documented in this encounter Care Teams Gis Application Developer Relationship Specialty Start Date End Date Tomas Hyman MD [address] [facility] [address] [place] [address] PCP - General Family Medicine 12/31/13 05/09/18 Isidro Heredia MD Rheumatology 02/09/11 documented as of this encounter
--- OUTSIDE RECORDS SUMMARY | 2024-05-10 18:47 | XMS_ITS | Encounter Summary ---
Author Organization [facility] Address [address] [place] [address] Care Team Providers Care Line Service Supervisor Name Role Phone Isidro Heredia MD Unavailable [phone] Tomas Hyman MD Primary Care Provider [phone] Encounter Details Date Type Department Care Team (Latest Contact Info) Description 05/16/2016 11:01 AM VOUCHER CLERK - 05/16/2016 11:59 PM VOUCHER CLERK Hospital Encounter [facility] Pain Care [address] [place] [address] [place] [address] [place] [phone] Discharge Disposition: Home or Self Care Social [...] Comments Blood Pressure 143/87 05/16/2016 11:34 AM VOUCHER CLERK Pulse 98 05/16/2016 11:34 AM VOUCHER CLERK Temperature - - Respiratory Rate 16 05/16/2016 11:34 AM VOUCHER CLERK Oxygen Saturation 98% 05/16/2016 11:34 AM VOUCHER CLERK Inhaled Oxygen Concentration - - Weight - - Height - - Body Mass Index - - documented in this encounter Discharge Instructions * Patient Instructions* Nena Pond RN - 05/16/2016 11:13 AM VOUCHER CLERK [facility] Pain Discharge Instructions [...] headache, or any other problems, please call [phone] or after hours callDr. Mirza at [phone] and tell them your physician's name. The exchange will alert the physician unit controller. If sedation is given: No sedation given. For Your Next Visit: No additional instructions. Other Instructions: May remove band-aid in 12 Hours. Return in one week for [place]IM[place] #2 HER CLERK documented in this encounter Medications at Time of Discharge Medication Sig Dispensed Refills Start Date End Date atorvastatin (LIPITOR) 40 MG tablet Take 1 (one) tablet by mouth at bedtime Kdqjhkfcjls-Pcbxxwher-K it C-Mn (GLUCOSAMINE CHONDR 1500 COMPLX PO) [...] Was reviewed today and no changes noted. HER CLERK documented in this encounter Procedure Notes * [...] Plavix or other blood thinners. Responsible driver manager is not needed due to the patient [...] Follow Up: 1 week Alejandro Mirza MD HER CLERK documented in this encounter Plan of Treatment Upcoming Encounters Date Type Department Care Team (Late st Contact Info) Description 06/03/2024 1:00 PM VOUCHER CLERK Appointment [facility] - Rheumatology [address] [place] [address] 06/03/2024 2:00 PM VOUCHER CLERK Office Visit [facility] - Rheumatology [address] [place] [address] Gloria Smith MD [address] [place] [phone] documented as of this encounter Procedures Procedure Name Priority Date/Time Associated Diagnosis Comments PAIN MANAGEMENT PROCEDURE TIME Routine 05/16/2016 11:33 AM VOUCHER CLERK Radiculopathy of lumbosacral region Low back pain with sciatica, sciatica laterality unspecified, unspecified back pain laterality, unspecified chronicity documented in this encounter Results * PAIN MANAGEMENT PROCEDURE TIME (05/16/2016 11:33 AM VOUCHER CLERK) Anatomical Region Laterality Modality X-Ray Angiograph y Narrative 05/16/2016 11:39 AM VOUCHER CLERK Alejandro Mirza MD ? 05/16/2016 11:39 AM [...] Plavix or other blood thinners. ??Responsible driver manager is not needed due to the patient [...] Follow Up: ??1 week Alejandro Mirza MD Aleajndro Mirza MD DIAGNOSTIC IMAGING O RDERABLES documented [...] Admin. by Other Provider 05/16/2016 11:30 AM VOUCHER CLERK 80 mg Back documented in this encounter Care Teams Line Service Supervisor Relationship Specialty Start Date End Date Tomas Hyman MD [address] [facility] [address] [place] [address] PCP - General Family Medicine 12/31/13 05/09/18 Isidro Heredia MD Rheumatology 02/09/11 documented as of this encounter
--- OUTSIDE RECORDS SUMMARY | 2024-05-10 18:47 | XMS_ITS | Encounter Summary ---
Author Organization [facility] Address [address] [place] [address] Care Team Providers Care Reading Interventionist Name Role Phone Isidro Heredia MD Unavailable [phone] Tomas Hyman MD Primary Care Provider [phone] Reason for Visit * Treatment (Routine) - Closed Specialty Diagnoses / Procedures Referred By Lawrence shah Referred To Contact Infusion Therapy Nurse Diagnoses Rheumatoid arthritis(714.0) (HCC) Rheumatoid arthritis without rheumatoid factor, multiple sites (HCC) Procedures HI INFLIXIMAB INJECTION HI INJECTION TOCILIZUMAB 1 MG Isidro Heredia MD [address] [place] [address] [address] Referral ID Status Reason Start Date Expiration Date Visits Re quested Visits Authorized [id number] Closed 01/07/2015 01/08/2016 1 12 Encounter Details Date Type Department Care Team (Late st Contact Info) Description 11/16/2015 1:50 PM CDT - 11/16/2015 11:59 PM CDT Hospital Encounter [facility] Medical [facility] - Rheumatology [address] [place] [address] Isidro Heredia MD [address] [place] [address] Discharge Disposition: Home or Self [...] Sahu RN - 11/16/2015 2:13 PM CDT [place] Rheumatology Post Infusion instructions [...] Sunday through Sunday- call the office at [phone] After hours or on the weekend call the exchange at [phone] If you have had lab work done [...] 1 (one) tablet by mouth at bedtime Fpwmdjyxyak-Rajbukfpm-V it C-Mn (GLUCOSAMINE CHONDR 1500 COMPLX PO) [...] - 11/16/2015 2:32 PM CDT JOSE Deng [id number] 11/16/2015 Diagnosis: Rheumatoid arthritis without rheumatoid factor, multiple sites [M06.09]. Pt denies symptoms of infection or antibiotic use, no open wounds, or recent surgery, or plans for surgery in the next couple of weeks. Pt is aware that we use the 0-10 pain scale to assess discomfort. 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 for treatment for [...] st Contact Info) Description 06/03/2024 1:00 PM WILDERNESS GUIDE Appointment [facility] - Rheumatology [address] [place] [address] 06/03/2024 2:00 PM WILDERNESS GUIDE Office Visit [facility] - Rheumatology [address] [place] [address] Gloria Smith MD [address] [place] [phone] documented as of this encounter Visit [...] mL/hr documented in this encounter Care Teams Reading Interventionist Relationship Specialty Start Date End Date Tomas Hyman MD [address] [facility] [address] [place] [address] PCP - General Family Medicine 12/31/13 05/09/18 Isidro Heredia MD Rheumatology 02/09/11 documented as of this encounter
--- OUTSIDE RECORDS SUMMARY | 2024-05-10 18:47 | XMS_ITS | Encounter Summary ---
Author Organization [facility] Address [address] [facility] [place] [address] Care Team Providers Care Fish Tender Name Role Phone Isidro Heredia MD Unavailable Tomas Hyman MD Primary Care Provider [phone] Reason for Visit * Reason Comments Refill Request Encounter Details Date Type Department Care Team (Late Contact Info) Description 06/08/2016 Refill [facility] - Rheumatology [address] [place] [address] Isidro Heredia MD [address] [place] [address] Refill Request Social History Tobacco Use [...] (Late Contact Info) Description 06/03/2024 1:00 PM AIRLINE PILOT Appointment [facility] - Rheumatology [address] [place] [address] 06/03/2024 2:00 PM AIRLINE PILOT Office Visit [facility] Rheumatology [address] [place] [address] Gloria Smith MD [address] [place] [address] [address] documented as of this encounter Visit Diagnoses Not on filedocumented in this encounter Care Teams Fish Tender Relationship Specialty Start Date End Date Tomas Hyman MD [address] [place] [address] PCP - General Family Medicine 12/31/13 05/09/18 Isidro Heredia MD Rheumatology 02/09/11 documented as of this encounter
--- OUTSIDE RECORDS SUMMARY | 2024-05-10 18:47 | XMS_ITS | Encounter Summary ---
Author Organization [facility] Address [address] [facility] [place] [address] Care Team Providers Care Dimethylaniline Sulfator Operator Name Role Phone Isidro Heredia MD Unavailable [phone] Tomas Hyman MD Primary Care Provider [phone] Reason for Visit * Reason Comments Narcotic Refill percocet MEDICATION REFILL skelaxin * Evaluate & Treat (Routine) - Closed Specialty Diagnoses / Procedures Referred By Contac t Referred To Contact Diagnoses Rheumatoid arthritis, unspecified (HCC) Procedures [place] OFFICE VISIT DURING HOURS Tomas Hyman MD [address] [place] [address] Isidro Heredia MD [address] [place] [address] Referral ID Status Reason Start Date Expiration Date Visits Re quested Visits Authorized [id number] Closed 06/15/2016 06/15/2017 6 6 Encounter Details Date Type Department Care Team (Late st Contact Info) Description 06/29/2016 2:00 PM DIRECTOR CH[place] Office Visit [facility] - Rheumatology [address] [place] [address] Isidro Heredia MD [address] [place] [address] Abnormal LFTs (Primary Dx); Chronic right-sided [...] Comments Blood Pressure 125/84 06/29/2016 2:20 PM DIRECTOR [place] Pulse 80 06/29/2016 2:20 PM DIRECTOR [place]INA Temperature - - Respiratory Rate - - [...] 1 Tab by mouth once daily ??? Vlfchlcwhmk-Nnavlopgk-Fze C-Mn (GLUCOSAMINE CHONDR 1500 COMPLX PO) Take [...] up in office in 4 weeks CTOR [place] documented in this encounter Plan of Treatment Upcoming Encounters Date Type Department Care Team (Late st Contact Info) Description 06/03/2024 1:00 PM DIRECTOR CHINA Appointment [facility] - Rheumatology [address] [place] [address] 06/03/2024 2:00 PM DIRECTOR CHINA Office Visit [facility] - Rheumatology [address] [place] [address] Gloria Smith MD [address] [place] [phone] documented as of this encounter Visit Diagnoses Diagnosis Abnormal LFTs- Primary Other abnormal blood chemistry Chronic right-sided low back pain with right-sided sciatica Rheumatoid arthritis of multiple sites with negative rheumatoid factor (HCC) Chronic pain syndrome Rheumatoid arthritis of multiple 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 factor (HCC) Rheumatoid arthritis documented in this encounter Care Teams Dimethylaniline Sulfator Operator Relationship Specialty Start Date End Date Tomas Hyman MD [address] [facility] [address] [place] [address] PCP - General Family Medicine 12/31/13 05/09/18 Isidro Heredia MD Rheumatology 02/09/11 documented as of this encounter
--- OUTSIDE RECORDS SUMMARY | 2024-05-10 18:47 | XMS_ITS | Encounter Summary ---
Author Organization [facility] Address [address] [facility] [place] [address] Care Team Providers Care District Home Economics Agent Name Role Phone Isidro Heredia MD Unavailable [phone] Tomas Hyman MD Primary Care Provider [phone] Reason for Visit * Reason Onset Date Comments MEDICATION REFILL 03/02/2016 Encounter Details Date Type Department Care Team (Late Contact Info) Description 03/02/2016 Refill [facility] - Rheumatology [address] [place] [address] Isidro Heredia MD [address] [place] [address] MEDICATION REFILL Social History Tobacco Use [...] (Late Contact Info) Description 06/03/2024 1:00 PM SYSTEMS INTEGRATION ENGINEER Appointment [facility] - Rheumatology [address] [place] [address] 06/03/2024 2:00 PM SYSTEMS INTEGRATION ENGINEER Office Visit [facility] - Rheumatology [address] [place] [address] Gloria Smith MD [address] [place] [phone] documented as of this encounter Visit Diagnoses Not on filedocumented in this encounter Care Teams District Home Economics Agent Relationship Specialty Start Date End Date Tomas Hyman MD [address] [place] [address] PCP - General Family Medicine 12/31/13 05/09/18 Isidro Heredia MD Rheumatology 02/09/11 documented as of this encounter
--- OUTSIDE RECORDS SUMMARY | 2024-05-10 18:47 | XMS_ITS | Encounter Summary ---
Author Organization [facility] Address [address] [facility] [place] [address] Care Team Providers Care Entry Rep Name Role Phone Isidro Heredia MD Unavailable [phone] Tomas Hyman MD Primary Care Provider Encounter Details Date Type Department Care Team (Late st Contact Info) Description 09/21/2016 Orders Only [facility] Medical [facility] - Rheumatology [address] [place] [address] [phone] Isidro Heredia MD [address] [place] [address] Rheumatoid arthritis involving multiple sites, unspecified [...] st Contact Info) Description 06/03/2024 1:00 PM MOOSE HUNTER Appointment [facility] - Rheumatology [address] [place] [address] [phone] 06/03/2024 2:00 PM MOOSE HUNTER Office Visit [facility] - Rheumatology [address] [place] [address] Gloria Smith MD [address] [place] [phone] documented as of this encounter Procedures Procedure [...] PM CDT 09/21/2016 Narrative Resulting Agency Comment [facility] [address] [address] ??Ziy[place] [id number] Isidro Heredia MD LAB - HEMATOLOGY OR DERABLES [facility] INSURANCE BILL [address] [place] [address] * (ABNORMAL) CBC W AUTO DIFFERENTIAL (09/21/2016 [...] PM CDT 09/21/2016 Narrative Resulting Agency Comment [facility] [place] [address] [address] ??Ziy[place] [id number] Isidro Heredia MD LAB - HEMATOLOGY OR DERABLES [facility] INSURANCE BILL [address] [place] [address] * COMPREHENSIVE METABOLIC PANEL (09/21/2016 3:59 PM [...] PM CDT 09/21/2016 Narrative Resulting Agency Comment [facility] [address] [address] ??Ziy[place] [phone] Isidro Heredia MD LAB - CHEMISTRY ORD ERABLES [facility] INSURANCE BILL [address] [place] [address] documented in this encounter Visit Diagnoses Diagnosis Rheumatoid arthritis involving multiple sites, unspecified rheumatoid factor presence (HCC)- Primary documented in this encounter Care Teams Entry Rep Relationship Specialty Start Date End Date Tomas Hyman MD [address] [place] [address] PCP - General Family Medicine 12/31/13 05/09/18 Isidro Heredia MD Rheumatology 02/09/11 documented as of this encounter
--- OUTSIDE RECORDS SUMMARY | 2024-05-10 18:47 | XMS_ITS | Encounter Summary ---
Author Organization [facility] Address [address] [facility] [place] [address] Care Team Providers Care Senior Pricing Analyst Name Role Phone Isidro Heredia MD Unavailable [phone] Tomas Hyman MD Primary Care Provider [phone] Reason for Visit * Treatment (Routine) - Closed Specialty Diagnoses / Procedures Referred By Lawrence shah Referred To Contact Infusion Therapy Nurse Diagnoses Rheumatoid arthritis without rheumatoid factor, multiple sites (HCC) Procedures [place] INJECTION TOCILIZUMAB 1 MG Isidro Heredia MD [address] [place] [address] [address] Referral ID Status Reason Start Date Expiration Date Visits Re quested Visits Authorized [id number] Closed 12/16/2015 06/07/2016 1 6 Encounter Details Date Type Department Care Team (Late st Contact Info) Description 01/11/2016 1:59 PM CDT - 01/11/2016 11:59 PM CDT Hospital Encounter [facility] Medical [facility] - Rheumatology [address] [place] [address] Isidro Heredia MD [address] [place] [address] Discharge Disposition: Home or Self [...] Sahu RN - 01/11/2016 2:16 PM CDT [place] Rheumatology Post Infusion instructions [...] Sunday through 01-02 call the office at [phone] After hours or on the weekend call the exchange at [phone] If you have had lab work done [...] chosen [facility] as your provider. Jdoy Sahu RN documented in this encounter Medications at Time of Discharge Medication Sig Dispensed Refills Start Date End Date atorvastatin (LIPITOR) 40 MG tablet Take 1 (one) tablet by mouth at bedtime Gxryjluufow-Sashaqjgp-K it C-Mn (GLUCOSAMINE CHONDR 1500 COMPLX PO) [...] - 01/11/2016 2:20 PM CDT JOSE Deng [id number] 01/11/2016 Diagnosis: Rheumatoid arthritis without rheumatoid factor, [...] st Contact Info) Description 06/03/2024 1:00 PM RADIATION TECHNICIAN Appointment [facility] - Rheumatology [address] [place] [address] 06/03/2024 2:00 PM RADIATION TECHNICIAN Office Visit [facility] - Rheumatology [address] [place] [address] Gloria Smith MD [address] [place] [phone] documented as of this encounter Visit Diagnoses [...] documented in this encounter Care Teams Senior Pricing Analyst Relationship Specialty Start Date End Date Tomas Hyman MD [address] [facility] [address] [place] [address] PCP - General Family Medicine 12/31/13 05/09/18 Isidro Heredia MD Rheumatology 02/09/11 documented as of this encounter
--- OUTSIDE RECORDS SUMMARY | 2024-05-10 18:47 | XMS_ITS | Encounter Summary ---
Author Organization [facility] Address [address] [place] [address] Care Team Providers Care Manager Operations And Procurement Name Role Phone Isidro Heredia MD Unavailable [phone] Tomas Hyman MD Primary Care Provider [phone] Encounter Details Date Type Department Care Team (Late st Contact Info) Description 05/04/2016 Orders Only [facility] Medical [facility] - Rheumatology [address] [place] [address] [phone] Isidro Heredia MD [address] [place] [address] Rheumatoid arthritis of multiple sites with [...] sent via my chart regarding lab results TENANCE CRAFTSMAN * Isidro Heredia MD - 05/12/2016 6:12 PM CST Wbc 12.4 sl high mtx ok Chol very Good [address] TENANCE CRAFTSMAN documented in this encounter Plan of Treatment Upcoming Encounters Date Type Department Care Team (Late st Contact Info) Description 06/03/2024 1:00 PM MAINTENANCE CRAFTSMAN Appointment [facility] - Rheumatology [address] [place] [address] 06/03/2024 2:00 PM MAINTENANCE CRAFTSMAN Office Visit [facility] - Rheumatology [address] [place] [address] Gloria Smith MD [address] [place] [phone] documented as of this encounter Procedures Procedure Name Priority Date/Time Associated Diagnosis Comments LIPID PROFILE W TCHOL/HDL Routine 05/04/2016 1:30 AM MAINTENANCE CRAFTSMAN Rheumatoid arthritis 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 rheumatoid factor (HCC) ERYTHROCYTE SEDIMENTATION RATE Routine 05/04/2016 1:30 AM MAINTENANCE CRAFTSMAN Rheumatoid arthritis of multiple sites with negative rheumatoid factor (HCC) CBC W AUTO DIFFERENTIAL Routine 05/04/2016 1:30 AM MAINTENANCE CRAFTSMAN Rheumatoid arthritis of multiple sites with negative rheumatoid factor (HCC) COMPREHENSIVE METABOLIC PANEL Routine 05/04/2016 1:30 AM MAINTENANCE CRAFTSMAN Rheumatoid arthritis of multiple sites with negative rheumatoid factor (HCC) documented in this encounter Results * SED RATE WESTERGREN (05/04/2016 1:30 AM MAINTENANCE CRAFTSMAN) Erythrocyte Sedimentation Rate Westergren 3 0 - 30 mm/hr [facility] INSURANCE BILL Blood BLOOD SPECIMEN / Unknown 05/04/2016 1:30 AM MAINTENANCE CRAFTSMAN 05/04/2016 Narrative Resulting Agency Comment [facility] [address] ??[facility] [phone] Isidro Heredia MD LAB - HEMATOLOGY OR DERABLES [facility] INSURANCE BILL [address] [place] [address] * (ABNORMAL) LIPID PROFILE W TCHOL/HDL (PO REF LAB) (05/04/2016 1:30 AM MAINTENANCE CRAFTSMAN) Cholesterol 129 100 - 199 mg/dL [facility] [...] BLOOD SPECIMEN / Unknown 05/04/2016 1:30 AM MAINTENANCE CRAFTSMAN 05/04/2016 Narrative Resulting Agency Comment [facility] [address] ??[facility] [phone] Isidro Heredia MD LAB - CHEMISTRY ORD ERABLES [facility] INSURANCE BILL [address] [place] [address] * (ABNORMAL) COMPREHENSIVE METABOLIC PANEL (05/04/2016 1:30 AM MAINTENANCE CRAFTSMAN) Glucose 97 65 - 99 mg/dL [facility] [...] BLOOD SPECIMEN / Unknown 05/04/2016 1:30 AM MAINTENANCE CRAFTSMAN 05/04/2016 Narrative Resulting Agency Comment [facility] [address] ??[facility] [phone] Isidro Heredia MD LAB - CHEMISTRY ORD ERABLES [facility] INSURANCE BILL [address] [place] [address] * (ABNORMAL) CBC W AUTO DIFFERENTIAL (05/04/2016 1:30 AM MAINTENANCE CRAFTSMAN) WBC 12.4(H) 3.4 - 10.8 x10E3/uL [facility] [...] BLOOD SPECIMEN / Unknown 05/04/2016 1:30 AM MAINTENANCE CRAFTSMAN 05/04/2016 Narrative Resulting Agency Comment [facility] [address] ??[facility] [phone] Isidro Heredia MD LAB - HEMATOLOGY OR DERABLES [facility] INSURANCE BILL [address] [place] [address] documented in this encounter Visit Diagnoses Diagnosis Rheumatoid arthritis of multiple sites with negative rheumatoid factor (HCC)- Primary documented in this encounter Care Teams Manager Operations And Procurement Relationship Specialty Start Date End Date Tomas Hyman MD [address] [facility] [address] [place] [address] PCP - General Family Medicine 12/31/13 05/09/18 Isidro Heredia MD Rheumatology 02/09/11 documented as of this encounter
--- OUTSIDE RECORDS SUMMARY | 2024-05-10 18:47 | XMS_ITS | Encounter Summary ---
Author Organization [facility] Address [address] [facility] [place] [address] Care Team Providers Care Station Attendant Name Role Phone Isidro Heredia MD Unavailable [phone] Tomas Hyman MD Primary Care Provider [phone] Reason for Visit * Reason Comments Rheumatoid Arthritis Encounter Details Date Type Department Care Team (Late st Contact Info) Description 06/01/2016 2:00 PM NEWS CONTENT SPECIALIST Office Visit [facility] - Rheumatology [address] [place] [address] Isidro Heredia MD [address] [place] [address] Chronic right-sided low back pain with [...] Comments Blood Pressure 120/76 06/01/2016 2:09 PM NEWS CONTENT SPECIALIST Pulse 85 06/01/2016 2:09 PM NEWS CONTENT SPECIALIST Temperature - - Respiratory Rate - - Oxygen Saturation - - Inhaled Oxygen Concentration - - Weight 119.3 kg (263 lb) 06/01/2016 2:09 PM NEWS CONTENT SPECIALIST Height - - Body Mass Index 37.74 [...] 1 Tab by mouth once daily ??? Qtkknuieryi-Qlqzriwvv-Rah C-Mn (GLUCOSAMINE CHONDR 1500 COMPLX PO) Take [...] Follow up in office in 4 weeks CONTENT SPECIALIST documented in this encounter Plan of Treatment Upcoming Encounters Date Type Department Care Team (Late st Contact Info) Description 06/03/2024 1:00 PM NEWS CONTENT SPECIALIST Appointment [facility] - Rheumatology [address] [place] [address] [phone] 06/03/2024 2:00 PM NEWS CONTENT SPECIALIST Office Visit [facility] - Rheumatology [address] [place] [address] [phone] Gloria Smith MD [address] [place] [phone] documented as of this encounter Visit Diagnoses Diagnosis Chronic right-sided low back pain with right-sided sciatica- Primary Rheumatoid arthritis of multiple 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 factor (HCC) Rheumatoid arthritis Rheumatoid arthritis of multiple sites with negative rheumatoid factor (HCC) Chronic pain syndrome documented in this encounter Care Teams Station Attendant Relationship Specialty Start Date End Date Tomas Hyman MD [address] [facility] [address] [place] [address] PCP - General Family Medicine 12/31/13 05/09/18 Isidro Heredia MD Rheumatology 02/09/11 documented as of this encounter
--- OUTSIDE RECORDS SUMMARY | 2024-05-10 18:47 | XMS_ITS | Encounter Summary ---
Author Organization [facility] Address [address] [place] [address] Care Team Providers Care Customer Experience Strategist Name Role Phone Isidro Heredia MD Unavailable [phone] Tomas Hyman MD Primary Care Provider [phone] Reason for Visit * Reason Comments Refill Request Encounter Details Date Type Department Care Team (Late Contact Info) Description 11/15/2016 Refill [facility] - Rheumatology [address] [place] [address] Isidro Heredia MD [address] [place] [address] Refill Request Social History Tobacco Use [...] (Late Contact Info) Description 06/03/2024 1:00 PM BUTTON RECLAIMER Appointment [facility] - Rheumatology [address] [place] [address] 06/03/2024 2:00 PM BUTTON RECLAIMER Office Visit [facility] Rheumatology [address] [place] [address] Gloria Smith MD [address] [place] [address] [address] documented as of this encounter Visit Diagnoses Not on filedocumented in this encounter Care Teams Customer Experience Strategist Relationship Specialty Start Date End Date Tomas Hyman MD [address] [place] [address] PCP - General Family Medicine 12/31/13 05/09/18 Isidro Heredia MD Rheumatology 02/09/11 documented as of this encounter
--- OUTSIDE RECORDS SUMMARY | 2024-05-10 18:47 | XMS_ITS | Encounter Summary ---
Author Organization [facility] Address [address] [facility] [place] [address] Care Team Providers Care Malt House Kiln Operator Name Role Phone Isidro Heredia MD Unavailable [phone] Tomas Hyman MD Primary Care Provider [phone] Encounter Details Date Type Department Care Team (Late st Contact Info) Description 12/14/2015 Orders Only [facility] Medical [facility] - Rheumatology [address] [place] [address] [phone] Isidro Heredia MD [address] [place] [address] Rheumatoid arthritis of multiple sites with [...] Contact Info) Description 06/03/2024 1:00 PM STRATEGIC PROCUREMENT MANAGER Appointment [facility] - Rheumatology [address] [place] [address] [phone] 06/03/2024 2:00 PM STRATEGIC PROCUREMENT MANAGER Office Visit [facility] - Rheumatology [address] [place] [address] Gloria Smith MD [address] [place] [address] [phone] documented as of this encounter Procedures Procedure [...] PM CDT Narrative Resulting Agency Comment [facility] [address] [facility] ??[facility] [id number] Isidro Heredia MD LAB - HEMATOLOGY OR DERABLES [facility] INSURANCE BILL [address] [place] [address] * (ABNORMAL) COMPREHENSIVE METABOLIC PANEL (12/14/2015 2:44 [...] PM CDT Narrative Resulting Agency Comment [facility] [address] [facility] ??[facility] [id number] Isidro Heredia MD LAB - CHEMISTRY ORD ERABLES [facility] INSURANCE BILL [address] [place] [address] * (ABNORMAL) CBC W AUTO DIFFERENTIAL (12/14/2015 [...] PM CDT Narrative Resulting Agency Comment [facility] [address] [facility] ??[facility] [phone] Isidro Heredia MD LAB - HEMATOLOGY OR DERABLES [facility] INSURANCE BILL [address] [place] [address] documented in this encounter Visit Diagnoses Diagnosis Rheumatoid arthritis of multiple sites with negative rheumatoid factor (HCC)- Primary documented in this encounter Care Teams Malt House Kiln Operator Relationship Specialty Start Date End Date Tomas Hyman MD [address] [facility] [address] [place] [address] PCP - General Family Medicine 12/31/13 05/09/18 Isidro Heredia MD Rheumatology 02/09/11 documented as of this encounter
--- OUTSIDE RECORDS SUMMARY | 2024-05-10 18:47 | XMS_ITS | Encounter Summary ---
Author Organization [facility] Address [address] [place] [address] Care Team Providers Care Master Carpenter Name Role Phone Isidro Heredia MD Unavailable [phone] Tomas Hyman MD Primary Care Provider [phone] Encounter Details Date Type Department Care Team (Late Contact Info) Description 09/21/2016 Orders Only [facility] - Rheumatology [address] [place] [address] Isidro Heredia MD [address] [place] [address] Social History Tobacco Use Types Packs/Day [...] (Late Contact Info) Description 06/03/2024 1:00 PM COMMERCIAL SOLAR SALES CONSULTANT Appointment [facility] - Rheumatology [address] [place] [address] 06/03/2024 2:00 PM COMMERCIAL SOLAR SALES CONSULTANT Office Visit [facility] - Rheumatology [address] [place] [address] Gloria Smith MD [address] [place] [phone] documented as of this encounter Visit Diagnoses Not on filedocumented in this encounter Care Teams Master Carpenter Relationship Specialty Start Date End Date Tomas Hyman MD [address] [facility] [address] [place] [address] PCP - General Family Medicine 12/31/13 05/09/18 Isidro Heredia MD Rheumatology 02/09/11 documented as of this encounter
--- OUTSIDE RECORDS SUMMARY | 2024-05-10 18:47 | XMS_ITS | Encounter Summary ---
Author Organization [facility] Address [address] [facility] [place] [address] Care Team Providers Care Curb Setter Helper Name Role Phone Isidro Heredia MD Unavailable Tomas Hyman MD Primary Care Provider Reason for Visit * Reason Comments Narcotic Refill percocet * Evaluate & Treat (Routine) - Closed Specialty Diagnoses / Procedures Referred By Contsarahi t Referred To Contact Diagnoses Rheumatoid arthritis, unspecified (HCC) Procedures [place] OFFICE VISIT DURING HOURS Tomas Hyman MD [address] [place] [address] Isidro Heredia MD [address] [place] [address] Referral ID Status Reason Start Date Expiration Date Visits Re quested Visits Authorized [id number] Closed 06/15/2016 06/15/2017 6 6 Encounter Details Date Type Department Care Team (Late st Contact Info) Description 08/24/2016 2:00 PM CDT Office Visit [facility] - Rheumatology [address] [place] [address] Isidro Heredia MD [address] [place] [address] Abnormal LFTs (Primary Dx); Chronic right-sided [...] 1 Tab by mouth once daily ??? Taetzrwoglr-Bvqzlbxdq-Jvu C-Mn (GLUCOSAMINE CHONDR 1500 COMPLX PO) Take [...] Contact Info) Description 06/03/2024 1:00 PM ENVIRONMENTAL DESIGNER Appointment [facility] - Rheumatology [address] [place] [address] 06/03/2024 2:00 PM ENVIRONMENTAL DESIGNER Office Visit [facility] - Rheumatology [address] [place] [address] Gloria Smith MD [address] [place] [phone] documented as of this encounter Visit Diagnoses Diagnosis Abnormal LFTs- Primary Other abnormal blood chemistry Chronic right-sided low back pain with right-sided sciatica Rheumatoid arthritis of 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
--- OUTSIDE RECORDS SUMMARY | 2024-05-10 18:47 | XMS_ITS | Encounter Summary ---
Author Organization [facility] Address [address] [facility] [place] [address] Care Team Providers Care Restaurant Assistant Manager Name Role Phone Isidro Heredia MD Unavailable [phone] Tomas Hyman MD Primary Care Provider [phone] Reason for Visit * Treatment (Routine) - Closed Specialty Diagnoses / Procedures Referred By Lawrence shah Referred To Contact [place] [address] [address] [facility] [address] [place] [address] Referral ID Status Reason Start Date Expiration Date Visits Re quested Visits Authorized [id number] Closed 05/16/2016 11/12/2016 1 3 Encounter Details Date Type Department Care Team (Latest Contact Info) Description 05/16/2016 10:30 AM AUTOMATIC PILOT MECHANIC - 05/16/2016 11:00 AM [facility] Hospital Encounter [facility] [id number] [place] [address] [place] [address] [address] Discharge Disposition: Home or Self [...] 1 (one) tablet by mouth at bedtime Vodfpoibfio-Xjlwcchcd-O it C-Mn (GLUCOSAMINE CHONDR 1500 COMPLX PO) [...] Contact Info) Description 06/03/2024 1:00 PM AUTOMATIC PILOT MECHANIC Appointment [facility] - Rheumatology [address] [place] [address] [phone] 06/03/2024 2:00 PM AUTOMATIC PILOT MECHANIC Office Visit [facility] - Rheumatology [address] [place] [address] [phone] Gloria Smith MD [address] [place] [phone] documented as of this encounter Visit Diagnoses Not on filedocumented in this encounter Care Teams Restaurant Assistant Manager Relationship Specialty Start Date End Date Tomas Hyman MD [address] [facility] [address] [place] [address] PCP - General Family Medicine 12/31/13 05/09/18 Isidro Heredia MD Rheumatology 02/09/11 documented as of this encounter
--- OUTSIDE RECORDS SUMMARY | 2024-05-10 18:47 | XMS_ITS | Encounter Summary ---
Author Organization [facility] Address [address] [place] [address] Care Team Providers Care Sheet Metal Pattern Cutter Name Role Phone Isidro Heredia MD Unavailable [phone] Tomas Hyman MD Primary Care Provider [phone] Reason for Visit * Treatment (Routine) - Closed Specialty Diagnoses / Procedures Referred By Lawrence shah Referred To Contact Infusion Therapy Nurse Diagnoses Rheumatoid arthritis(714.0) (HCC) Rheumatoid arthritis without rheumatoid factor, multiple sites (HCC) Procedures [place] INFLIXIMAB INJECTION [place] INJECTION TOCILIZUMAB 1 MG Isidro Heredia MD [address] [place] [address] [address] Referral ID Status Reason Start Date Expiration Date Visits Re quested Visits Authorized [id number] Closed 01/07/2015 01/08/2016 1 12 Encounter Details Date Type Department Care Team (Late st Contact Info) Description 10/13/2015 3:20 PM CDT - 10/13/2015 11:59 PM CDT Hospital Encounter [facility] - Rheumatology [address] [place] [address] Isidro Heredia MD [address] [place] [address] Discharge Disposition: Home or Self [...] Sahu RN - 10/13/2015 4:06 PM CDT [place] Rheumatology Post Infusion instructions [...] through Sunday 9-5 call the office at [phone] After hours or on the weekend call the exchange at [phone] If you have had lab work done [...] Sig Dispensed Refills Start Date End Date Mwfsuelirws-Wtzucuott-M it C-Mn (GLUCOSAMINE CHONDR 1500 COMPLX PO) [...] - 10/13/2015 4:34 PM CDT JOSE Deng [id number] 10/13/2015 Diagnosis: Rheumatoid arthritis without rheumatoid factor, [...] Contact Info) Description 06/03/2024 1:00 PM TRAIN OPERATOR Appointment [facility] - Rheumatology [address] [place] [address] 06/03/2024 2:00 PM TRAIN OPERATOR Office Visit [facility] - Rheumatology [address] [place] [address] Gloria Smith MD [address] [place] [phone] documented as of this encounter Visit Diagnoses [...] mL/hr documented in this encounter Care Teams Sheet Metal Pattern Cutter Relationship Specialty Start Date End Date Tomas Hyman MD [address] [facility] [address] [place] [address] PCP - General Family Medicine 12/31/13 05/09/18 Isidro Heredia MD Rheumatology 02/09/11 documented as of this encounter
--- OUTSIDE RECORDS SUMMARY | 2024-05-10 18:47 | XMS_ITS | Encounter Summary ---
Author Organization [facility] Address [address] [place] [address] Care Team Providers Care Floatlight Powder Mixer Name Role Phone Isidro Heredia MD Unavailable [phone] Tomas Hyman MD Primary Care Provider [phone] Reason for Visit * Reason Comments Refill Request Encounter Details Date Type Department Care Team (Late Contact Info) Description 09/13/2015 Refill [facility] - Rheumatology [address] [place] [address] Isidro Heredia MD [address] [place] [address] Refill Request Social History Tobacco Use [...] Contact Info) Description 06/03/2024 1:00 PM TECHNOLOGY INSTRUCTOR Appointment [facility] - Rheumatology [address] [place] [address] 06/03/2024 2:00 PM TECHNOLOGY INSTRUCTOR Office Visit [facility] Rheumatology [address] [place] [address] Gloria Smith MD [address] [place], [place] [address] [address] documented as of this encounter Visit Diagnoses Not on filedocumented in this encounter Care Teams Floatlight Powder Mixer Relationship Specialty Start Date End Date Tomas Hyman MD [address] [place] [address] PCP - General Family Medicine 12/31/13 05/09/18 Isidro Heredia MD Rheumatology 02/09/11 documented as of this encounter
--- OUTSIDE RECORDS SUMMARY | 2024-05-10 18:47 | XMS_ITS | Encounter Summary ---
Author Organization [facility] Address [address] [facility] [place] [address] Care Team Providers Care Control Panel Tester Name Role Phone Isidro Heredia MD Unavailable [phone] Tomas Hyman MD Primary Care Provider [phone] Reason for Visit * Reason Comments Refill Request Encounter Details Date Type Department Care Team (Late Contact Info) Description 11/12/2015 Refill [facility] - Rheumatology [address] [place] [address] Isidro Heredia MD [address] [place] [address] Refill Request Social History Tobacco Use [...] (Late Contact Info) Description 06/03/2024 1:00 PM TREASURY ASSISTANT Appointment [facility] - Rheumatology [address] [place] [address] 06/03/2024 2:00 PM TREASURY ASSISTANT Office Visit [facility] Rheumatology [address] [place] [address] Gloria Smith MD [address] [place] [address] [address] documented as of this encounter Visit Diagnoses Not on filedocumented in this encounter Care Teams Control Panel Tester Relationship Specialty Start Date End Date Tomas Hyman MD [address] [place] [address] PCP - General Family Medicine 12/31/13 05/09/18 Isidro Heredia MD Rheumatology 02/09/11 documented as of this encounter
--- OUTSIDE RECORDS SUMMARY | 2024-05-10 18:47 | XMS_ITS | Encounter Summary ---
Author Organization [facility] Address [address] [facility] [place] [address] Care Team Providers Care Agricultural Equipment Mechanic Name Role Phone Isidro Heredia MD Unavailable [phone] Tomas Hyman MD Primary Care Provider Encounter Details Date Type Department Care Team (Late st Contact Info) Description 09/21/2016 3:46 PM CDT - 09/21/2016 11:59 PM T Hospital Encounter [facility] - Medical Imaging [address] [place] [address] Isidro Heredia MD [address] [place] [address] Discharge Disposition: Home or Self Care [...] 1 (one) tablet by mouth at bedtime Jxxtmdekdgr-Bgmxrpcmr-Q it C-Mn (GLUCOSAMINE CHONDR 1500 COMPLX PO) [...] Contact Info) Description 06/03/2024 1:00 PM CALIBRATION TESTER Appointment [facility] - Rheumatology [address] [place] [address] 06/03/2024 2:00 PM CALIBRATION TESTER Office Visit [facility] - Rheumatology [address] [place] [address] Gloria Smith MD [facility] [place] [phone] documented as of this encounter Procedures Procedure [...] breath documented in this encounter Care Teams Agricultural Equipment Mechanic Relationship Specialty Start Date End Date Tomas Hyman MD [address] [place] [address] PCP - General Family Medicine 12/31/13 05/09/18 Isidro Heredia MD Rheumatology 02/09/11 documented as of this encounter
--- OUTSIDE RECORDS SUMMARY | 2024-05-10 18:47 | XMS_ITS | Encounter Summary ---
Author Organization [facility] Address [address] [facility] [place] [address] Care Team Providers Care Route Delivery Supervisor Name Role Phone Isidro Heredia MD Unavailable Tomas Hyman MD Primary Care Provider Reason for Visit * Reason Comments Rheumatoid Arthritis * Evaluate & Treat (Routine) - Closed Specialty Diagnoses / Procedures Referred By Lawrence t Referred To Contact Diagnoses Rheumatoid arthritis with rheumatoid factor, unspecified (HCC) Procedures [place] OFFICE VISIT DURING HOURS Tomas Hyman MD [address] [place] [address] Isidro Heredia MD [address] [place] [address] Referral ID Status Reason Start Date Expiration Date Visits Re quested Visits Authorized [id number] Closed 02/24/2015 02/24/2016 6 6 Encounter Details Date Type Department Care Team (Late st Contact Info) Description 10/13/2015 3:45 PM CDT Office Visit [facility] Medical [facility] - Rheumatology [address] [place] [address] Isidro Heredia MD [address] [place] [address] Encounter for long-term (current) use of [...] 1 Tab by mouth once daily ??? Fgqiskzglex-Pvaysfxqt-Mdb C-Mn (GLUCOSAMINE CHONDR 1500 COMPLX PO) Take [...] Contact Info) Description 06/03/2024 1:00 PM DIRECTOR EDUCATIONAL RADIO Appointment [facility] - Rheumatology [address] [place] [address] [phone] 06/03/2024 2:00 PM DIRECTOR EDUCATIONAL RADIO Office Visit [facility] - Rheumatology [address] [place] [address] Gloria Smith MD [address] [place] [phone] documented as of this encounter Procedures Procedure [...] 6:21 PM CDT Narrative Resulting Agency Comment [facility] [address] ??Ziyad PENNY [phone] Isidro Heredia MD LAB - CHEMISTRY ORD ERABLES Performing Organization Address [facility] Co de Phone Number [facility] INSURANCE BILL [address] [place] [address] * SED RATE AUTO (ESR) (10/13/2015 3:30 PM CDT) Erythrocyte Sedimentation Rate Westergren 6 0 - 20 mm/hr [facility] INSURANCE BILL Blood specimen (specimen) BLOOD SPECIMEN / Unknown 10/13/2015 3:30 PM CDT 10/13/2015 6:21 PM CDT Narrative Resulting Agency Comment [facility] [address] ??Ziyad PENNY [phone] Isidro Heredia MD LAB - HEMATOLOGY OR DERABLES Performing Organization Address [facility] de Phone Number [facility] INSURANCE BILL [address] [place] [address] * TSH (10/13/2015 3:30 PM CDT) TSH 1.06 0.358 - 3.740 uIU/mL [facility] INSURANCE BILL Blood specimen (specimen) BLOOD SPECIMEN / Unknown 10/13/2015 3:30 PM CDT 10/13/2015 6:21 PM CDT Narrative Resulting Agency Comment [facility] [address] ??Ziyad PENNY [phone] Isidro Heredia MD LAB - CHEMISTRY ORD ERABLES Performing Organization Address [facility]/ZIP Co de Phone Number [facility] INSURANCE BILL [address] [place] [address] * (ABNORMAL) LIPID PROFILE W TCHOL/HDL (PO [...] 6:21 PM CDT Narrative Resulting Agency Comment [facility] [address] [facility] ??[place] [phone] Isidro Heredia MD LAB - CHEMISTRY ORD ERABLES [facility] INSURANCE BILL [address] [place] [address] * (ABNORMAL) COMPREHENSIVE METABOLIC PANEL (10/13/2015 3:30 [...] 6:21 PM CDT Narrative Resulting Agency Comment [facility] [address] ??[place] [phone] Isidro Heredia MD LAB - CHEMISTRY ORD ERABLES [facility] INSURANCE BILL [address] [place] [address] * (ABNORMAL) CBC W AUTO DIFFERENTIAL (10/13/2015 [...] 6:21 PM CDT Narrative Resulting Agency Comment [facility] [address] [facility] ??[facility] [phone] Isidro Heredia MD LAB - HEMATOLOGY OR DERABLES [facility] INSURANCE BILL [address] [place] [address] documented in this encounter Visit Diagnoses Diagnosis [...] thyroid documented in this encounter Care Teams Route Delivery Supervisor Relationship Specialty Start Date End Date Tomas Hyman MD [address] [facility] [address] [place] [address] PCP - General Family Medicine 12/31/13 05/09/18 Isidro Heredia MD Rheumatology 02/09/11 documented as of this encounter
--- OUTSIDE RECORDS SUMMARY | 2024-05-10 18:47 | XMS_ITS | Encounter Summary ---
Author Organization [facility] Address [address] [facility] [place] [address] Care Team Providers Care Rubber Tubing Backer Name Role Phone Isidro Heredia MD Unavailable [phone] Tomas Hyman MD Primary Care Provider [phone] Reason for Visit * Reason Comments Refill Request Encounter Details Date Type Department Care Team (Late Contact Info) Description 06/19/2016 Refill [facility] - Rheumatology [address] [place] [address] Isidro Heredia MD [address] [place] [address] Refill Request Social History Tobacco Use [...] (Late Contact Info) Description 06/03/2024 1:00 PM WATER INSPECTOR Appointment [facility] - Rheumatology [address] [place] [address] 06/03/2024 2:00 PM WATER INSPECTOR Office Visit [facility] Rheumatology [address] [place] [address] Gloria Smith MD [address] [place], [place] [address], [place] [address] documented as of this encounter Visit Diagnoses Not on filedocumented in this encounter Care Teams Rubber Tubing Backer Relationship Specialty Start Date End Date Tomas Hyman MD [address] [place] [address] PCP - General Family Medicine 12/31/13 05/09/18 Isidro Heredia MD Rheumatology 02/09/11 documented as of this encounter
--- OUTSIDE RECORDS SUMMARY | 2024-05-10 18:47 | XMS_ITS | Encounter Summary ---
Author Organization [facility] Address [address] [facility] [place] [place] [address] Care Team Providers Care Study Hall Supervisor Name Role Phone Isidro Heredia MD Unavailable [phone] Tomas Hyman MD Primary Care Provider Reason for Visit * Reason Onset Date Comments MEDICATION REFILL 12/13/2015 Encounter Details Date Type Department Care Team (Late Contact Info) Description 12/13/2015 Refill [facility] - Rheumatology [address] [place] [address] Isidro Heredia MD [address] [place] [address] MEDICATION REFILL Social History Tobacco Use [...] (Late Contact Info) Description 06/03/2024 1:00 PM PARLIAMENTARY LIBRARIAN Appointment [facility] - Rheumatology [address] [place] [address] 06/03/2024 2:00 PM PARLIAMENTARY LIBRARIAN Office Visit [facility] - Rheumatology [address] [place] [address] Gloria Smith MD [address] [place] [address] documented as of this encounter Visit Diagnoses Diagnosis Rheumatoid arthritis of multiple 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 factor (HCC)- Primary Rheumatoid arthritis documented in this encounter Care Teams Study Hall Supervisor Relationship Specialty Start Date End Date Tomas Hyman MD [address] [facility] [address] [place] [address] PCP - General Family Medicine 12/31/13 05/09/18 Isidro Heredia MD Rheumatology 02/09/11 documented as of this encounter
--- OUTSIDE RECORDS SUMMARY | 2024-05-10 18:47 | XMS_ITS | Encounter Summary ---
Author Organization [facility] Address [address] [facility] [place] [address] Care Team Providers Care Cruise Director Name Role Phone Isidro Heredia MD Unavailable [phone] Tomas Hyman MD Primary Care Provider [phone] Reason for Visit * Treatment (Routine) - Closed Specialty Diagnoses / Procedures Referred By Lawrence shah Referred To Contact Infusion Therapy Nurse Diagnoses Rheumatoid arthritis without rheumatoid factor, multiple sites (HCC) Procedures [place] INJECTION TOCILIZUMAB 1 MG Isidro Heredia MD [address] [place] [address] [address] Referral ID Status Reason Start Date Expiration Date Visits Re quested Visits Authorized [id number] Closed 12/16/2015 06/07/2016 1 6 Encounter Details Date Type Department Care Team (Late st Contact Info) Description 05/04/2016 1:11 PM RECORDS ANALYST - 05/04/2016 11:59 PM RECORDS ANALYST Hospital Encounter [facility] Medical [facility] - Rheumatology [address] [place] [address] Isidro Heredia MD [address] [place] [address] Discharge Disposition: Home or Self [...] Comments Blood Pressure 154/92 05/04/2016 1:27 PM RECORDS ANALYST Pulse 96 05/04/2016 1:27 PM RECORDS ANALYST Temperature 36.7 ??C (98 ??F) 05/04/2016 1:27 PM RECORDS ANALYST Respiratory Rate 18 05/04/2016 1:27 PM RECORDS ANALYST Oxygen Saturation - - Inhaled Oxygen Concentration - - Weight 117.9 kg (260 lb) 05/04/2016 1:27 PM RECORDS ANALYST Height - - Body Mass Index 37.31 01/11/2016 3:12 PM CDT documented in this encounter Discharge Instructions * Discharge Instructions* Jody Sahu RN - 05/04/2016 1:40 PM RECORDS ANALYST ID Rheumatology Post Infusion instructions You have [...] through Sunday 9-5 call the office at [phone] After hours or on the weekend call the exchange at [phone] If you have had lab work done [...] Center as your provider. Jody Sahu RN RDS ANALYST documented in this encounter Medications at Time of Discharge Medication Sig Dispensed Refills Start Date End Date atorvastatin (LIPITOR) 40 MG tablet Take 1 (one) tablet by mouth at bedtime Mqvywzkfkds-Tjvorrdjg-F it C-Mn (GLUCOSAMINE CHONDR 1500 COMPLX PO) [...] - 05/04/2016 1:58 PM CST JOSE Deng [id number] 05/04/2016 Diagnosis: Rheumatoid arthritis without rheumatoid factor, [...] Next treatment? 4 weeks Jody Sahu RN RDS ANALYST documented in this encounter Plan of Treatment Upcoming Encounters Date Type Department Care Team (Late st Contact Info) Description 06/03/2024 1:00 PM RECORDS ANALYST Appointment [facility] - Rheumatology [address] [place] [address] 06/03/2024 2:00 PM RECORDS ANALYST Office Visit [facility] - Rheumatology [address] [place] [address] Gloria Smith MD [address] [place] [phone] documented as of this encounter Visit Diagnoses [...] 24hrs RT $ Given 05/04/2016 1:45 PM RECORDS ANALYST 800 mg documented in this encounter Care Teams Cruise Director Relationship Specialty Start Date End Date Tomas Hyman MD [address] [facility] [address] [place] [address] PCP - General Family Medicine 12/31/13 05/09/18 Isidro Heredia MD Rheumatology 02/09/11 documented as of this encounter
--- OUTSIDE RECORDS SUMMARY | 2024-05-10 18:47 | XMS_ITS | Encounter Summary ---
Author Organization [facility] Address [address] [facility] [place] [address] Care Team Providers Care Poster Name Role Phone Isidro Heredia MD Unavailable [phone] Tomas Hyman MD Primary Care Provider [phone] Reason for Visit * Treatment (Routine) - Closed Specialty Diagnoses / Procedures Referred By Lawrence shah Referred To Contact Infusion Therapy Nurse Diagnoses Rheumatoid arthritis without rheumatoid factor, multiple sites (HCC) Procedures [place] INJECTION TOCILIZUMAB 1 MG Isidro Heredia MD [address] [facility] [place] [place] [address] [address] Referral ID Status Reason Start Date Expiration Date Visits Re quested Visits Authorized [id number] Closed 08/07/2016 04/29/2017 1 12 Encounter Details Date Type Department Care Team (Late st Contact Info) Description 08/24/2016 1:00 PM CDT - 08/24/2016 11:59 PM CDT Hospital Encounter [facility] Medical [facility] - Rheumatology [address] [place] [address] Isidro Heredia MD [address] [facility] [place] [address] Discharge Disposition: Home or Self [...] Foreman RN - 08/24/2016 2:09 PM CDT [place] Rheumatology Post Infusion instructions [...] Sunday through 01-02 call the office at [phone] After hours or on the weekend call the exchange at [phone] If you have had lab work done [...] 1 (one) tablet by mouth at bedtime Qnyjxyvofam-Fenvoivoa-K it C-Mn (GLUCOSAMINE CHONDR 1500 COMPLX PO) [...] RN - 08/24/2016 2:05 PM CDT JOSE Dneg [id number] 08/24/2016 Diagnosis: Rheumatoid arthritis without rheumatoid factor, [...] st Contact Info) Description 06/03/2024 1:00 PM OFFENSIVE COORDINATOR Appointment [facility] - Rheumatology [address] [place] [address] 06/03/2024 2:00 PM OFFENSIVE COORDINATOR Office Visit [facility] - Rheumatology [address] [place] [address] Gloria Smith MD [address] [place] [address] documented as of this encounter Visit [...] mg documented in this encounter Care Teams Poster Relationship Specialty Start Date End Date Tomas Hyman MD [address] [place] [address] PCP - General Family Medicine 12/31/13 05/09/18 Isidro Heredia MD Rheumatology 02/09/11 documented as of this encounter
--- OUTSIDE RECORDS SUMMARY | 2024-05-10 18:47 | XMS_ITS | Encounter Summary ---
Author Organization [facility] Address [address] [facility] [place] [address] Care Team Providers Care Belt Press Operator Name Role Phone Isidro Heredia MD Unavailable [phone] Tomas Hyman MD Primary Care Provider Encounter Details Date Type Department Care Team (Late st Contact Info) Description 06/29/2016 Orders Only [facility] Medical [facility] - Rheumatology [address] [place] [address] [phone] Isidro Heredia MD [address] [place] [address] Rheumatoid arthritis of multiple sites with [...] sent via my chart regarding lab results RNER * Isidro Heredia MD - 07/02/2016 12:51 PM CST mtx ok meron RNER documented in this encounter Plan of Treatment Upcoming Encounters Date Type Department Care Team (Late st Contact Info) Description 06/03/2024 1:00 PM DEHORNER Appointment [facility] - Rheumatology [address] [place] [address] [phone] 06/03/2024 2:00 PM DEHORNER Office Visit [facility] - Rheumatology [address] [place] [address] Gloria Smith MD [address] [place] [phone] documented as of this encounter Procedures Procedure Name Priority Date/Time Associated Diagnosis Comments ERYTHROCYTE SEDIMENTATION RATE Routine 06/29/2016 1:30 AM DEHORNER Rheumatoid arthritis of multiple sites with negative rheumatoid factor (HCC) CBC W AUTO DIFFERENTIAL Routine 06/29/2016 1:30 AM DEHORNER Rheumatoid arthritis of multiple sites with negative rheumatoid factor (HCC) COMPREHENSIVE METABOLIC PANEL Routine 06/29/2016 1:30 AM DEHORNER Rheumatoid arthritis of multiple sites with negative rheumatoid factor (HCC) documented in this encounter Results * SED RATE WESTERGREN (06/29/2016 1:30 AM DEHORNER) Erythrocyte Sedimentation Rate Westergren 10 0 - 30 mm/hr [facility] INSURANCE BILL Blood BLOOD SPECIMEN / Unknown 06/29/2016 1:30 AM DEHORNER 06/29/2016 Narrative Resulting Agency Comment [facility] [address] ??[facility] [phone] Isidro Heredia MD LAB - HEMATOLOGY OR DERABLES [facility] INSURANCE BILL [address] [place] [address] * (ABNORMAL) COMPREHENSIVE METABOLIC PANEL (06/29/2016 1:30 AM DEHORNER) Glucose 101(H) 65 - 99 mg/dL [facility] [...] BLOOD SPECIMEN / Unknown 06/29/2016 1:30 AM DEHORNER 06/29/2016 Narrative Resulting Agency Comment [facility] [address] ??[facility] [phone] Isidro Heredia MD LAB - CHEMISTRY ORD ERABLES [facility] INSURANCE BILL [address] [place] [address] * CBC W AUTO DIFFERENTIAL (06/29/2016 1:30 AM DEHORNER) Pathologist [facility] WBC 8.7 3.4 - 10.8 x10E3/uL [facility] [...] BLOOD SPECIMEN / Unknown 06/29/2016 1:30 AM DEHORNER 06/29/2016 Narrative Resulting Agency Comment [facility] [address] ??[facility] [id number] Isidro eHredia MD LAB - HEMATOLOGY OR DERABLES [facility] INSURANCE BILL [address] [place] [address] documented in this encounter Visit Diagnoses Diagnosis Rheumatoid arthritis of multiple sites with negative rheumatoid factor (HCC)- Primary documented in this encounter Care Teams Belt Press Operator Relationship Specialty Start Date End Date Tomas Hyman MD [address] [place] [address] PCP - General Family Medicine 12/31/13 05/09/18 Isidro Heredia MD Rheumatology 02/09/11 documented as of this encounter
--- OUTSIDE RECORDS SUMMARY | 2024-05-10 18:47 | XMS_ITS | Encounter Summary ---
Author Organization [facility] Address [address] [facility] [place] [address] Care Team Providers Care Dry Drug Worker Name Role Phone Isidro Heredia MD Unavailable [phone] Tomas Hyman MD Primary Care Provider [phone] Reason for Visit * Reason Comments Refill Request Encounter Details Date Type Department Care Team (Late Contact Info) Description 12/14/2015 Refill [facility] - Rheumatology [address] [place] [address] Isidro Heredia MD [address] [place] [address] Refill Request Social History Tobacco Use [...] (Late Contact Info) Description 06/03/2024 1:00 PM WEB SEARCH EVALUATOR Appointment [facility] - Rheumatology [address] [place] [address] 06/03/2024 2:00 PM WEB SEARCH EVALUATOR Office Visit [facility] Rheumatology [address] [place] [address] Gloria Smith MD [address] [place], [place] [address] [address] documented as of this encounter Visit Diagnoses Not on filedocumented in this encounter Care Teams Dry Drug Worker Relationship Specialty Start Date End Date Tomas Hyman MD [address] [place] [address] PCP - General Family Medicine 12/31/13 05/09/18 Isidro Heredia MD Rheumatology 02/09/11 documented as of this encounter
--- OUTSIDE RECORDS SUMMARY | 2024-05-10 18:47 | XMS_ITS | Encounter Summary ---
Author Organization [facility] Address [address] [facility] [place] [address] Care Team Providers Care Welfare Manager Name Role Phone Isidro Heredia MD Unavailable [phone] Tomas Hyman MD Primary Care Provider [phone] Reason for Visit * Reason Onset Date Comments MEDICATION REFILL 11/15/2015 Encounter Details Date Type Department Care Team (Late Contact Info) Description 11/15/2015 Refill [facility] - Rheumatology [address] [place] [address] Isidro Heredia MD [address] [place] [address] MEDICATION REFILL Social History Tobacco Use [...] (Late Contact Info) Description 06/03/2024 1:00 PM CLOTH BLEACHING RANGE TENDER Appointment [facility] - Rheumatology [address] [place] [address] 06/03/2024 2:00 PM CLOTH BLEACHING RANGE TENDER Office Visit [facility] - Rheumatology [address] [place] [address] Gloria Smith MD [address] [place] [address] documented as of this encounter Visit Diagnoses Not on filedocumented in this encounter Care Teams Welfare Manager Relationship Specialty Start Date End Date Tomas Hyman MD [address] [place] [address] PCP - General Family Medicine 12/31/13 05/09/18 Isidro Heredia MD Rheumatology 02/09/11 documented as of this encounter
--- OUTSIDE RECORDS SUMMARY | 2024-05-10 18:47 | XMS_ITS | Encounter Summary ---
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, multiple sites (HCC) Procedures AK INFLIXIMAB INJECTION AK INJECTION TOCILIZUMAB 1 MG Isidro Heredia MD 08 [place] [address] [address] Referral ID Status Reason Start Date Expiration Date Visits Re quested Visits Authorized [id number] Closed 01/07/2015 01/08/2016 1 12 Encounter Details Date Type Department Care Team (Late st Contact Info) Description 12/14/2015 2:00 PM CDT - 12/14/2015 11:59 PM CDT Hospital Encounter [facility] Medical [facility] - Rheumatology [address] [place] [address] Isidro Heredia MD 58 [place] [...] Foreman RN - 12/14/2015 2:43 PM CDT [place] Rheumatology Post Infusion instructions [...] through Sunday 9-5 call the office at [phone] After hours or on the weekend call the exchange at [phone] If you have had lab work done [...] 1 (one) tablet by mouth at bedtime Ppvkezdexua-Khshbypbh-E it C-Mn (GLUCOSAMINE CHONDR 1500 COMPLX PO) [...] - 12/14/2015 2:42 PM CDT JOSE Deng [id number] 12/14/2015 Diagnosis: Rheumatoid arthritis without rheumatoid factor, [...] st Contact Info) Description 06/03/2024 1:00 PM SALVAGE INSPECTOR Appointment [facility] - Rheumatology [address] [place] [address] [phone] 06/03/2024 2:00 PM SALVAGE INSPECTOR Office Visit [facility] - Rheumatology [address] [place] [address] [phone] Gloria Smith MD [address] [place] [phone] documented as of this encounter Visit Diagnoses [...] mL/hr documented in this encounter Care Teams Microstrategy Architect Developer Relationship Specialty Start Date End Date Tomas Hyman MD [address] [facility] [address] [place] [address] PCP - General Family Medicine 12/31/13 05/09/18 Isidro Heredia MD Rheumatology 02/09/11 documented as of this encounter
--- OUTSIDE RECORDS SUMMARY | 2024-05-10 18:47 | XMS_ITS | Encounter Summary ---
Author Organization [facility] Address [address] [facility] [place] [address] Care Team Providers Care Principal Librarian Name Role Phone Isidro Heredia MD Unavailable Tomas Hyman MD Primary Care Provider [phone] Reason for Visit * Reason Comments Rheumatoid Arthritis Headache right side of head Shoulder Pain right woul like a[place]and[place] isone injection * Evaluate & Treat (Routine) - Closed Specialty Diagnoses / Procedures Referred By Lawrence t Referred To Contact Diagnoses Rheumatoid arthritis, unspecified (HCC) Procedures OR OFFICE VISIT DURING HOURS Tomas Hyman MD [address] [place] [address] Isidro Heredia MD [address] [place] [address] Referral ID Status Reason Start Date Expiration Date Visits Re quested Visits Authorized [id number] Closed 06/08/2015 06/07/2016 6 6 Encounter Details Date Type Department Care Team (Late st Contact Info) Description 11/16/2015 2:45 PM CDT Office Visit [facility] [employer] [facility] - Rheumatology [address] [place] [address] Isidro Heredia MD [address] [place] [address] Chronic right-sided low back pain [...] 1 Tab by mouth once daily ??? Othdykkaroe-Lobcbxwwp-Sra C-Mn (GLUCOSAMINE CHONDR 1500 COMPLX PO) Take [...] st Contact Info) Description 06/03/2024 1:00 PM SHREDDING MACHINE KNIFE CHANGER Appointment [facility] - Rheumatology [address] [place], [place] [phone] 06/03/2024 2:00 PM SHREDDING MACHINE KNIFE CHANGER Office Visit [facility] - Rheumatology [address] [place] [address] Gloria Smith MD [address] [place] [phone] documented as of this encounter Visit [...] r documented in this encounter Care Teams Principal Librarian Relationship Specialty Start Date End Date Tomas Hyman MD [address] [facility] [address] [place] [address] PCP - General Family Medicine 12/31/13 05/09/18 Isidro Heredia MD Rheumatology 02/09/11 documented as of this encounter
--- OUTSIDE RECORDS SUMMARY | 2024-05-10 18:47 | XMS_ITS | Encounter Summary ---
Author Organization [facility] Address [address] [facility] [place] [address] Care Team Providers Care Neonatal Surgeon Name Role Phone Isidro Heredia MD Unavailable [phone] Tomas Hyman MD Primary Care Provider [phone] Reason for Visit * Reason Comments Refill Request Encounter Details Date Type Department Care Team (Late Contact Info) Description 07/14/2016 Refill [facility] - Rheumatology [address] [place] [address] Isidro Heredia MD [address] [place] [address] Refill Request Social History Tobacco Use [...] (Late Contact Info) Description 06/03/2024 1:00 PM ELECTROFORMER Appointment [facility] - Rheumatology [address] [place] [address] 06/03/2024 2:00 PM ELECTROFORMER Office Visit [facility] Rheumatology [address] [place] [address] Gloria Smith MD [address] [place] [address] [address] documented as of this encounter Visit Diagnoses Not on filedocumented in this encounter Care Teams Neonatal Surgeon Relationship Specialty Start Date End Date Tomas Hyman MD [address] [place] [address] PCP - General Family Medicine 12/31/13 05/09/18 Isidro Heredia MD Rheumatology 02/09/11 documented as of this encounter
--- OUTSIDE RECORDS SUMMARY | 2024-05-10 18:47 | XMS_ITS | Encounter Summary ---
Author Organization [facility] Address [address] [facility] [place] [address] Care Team Providers Care Systems Support Officer Name Role Phone Isidro Heredia MD Unavailable [phone] Tomas Hyman MD Primary Care Provider [phone] Encounter Details Date Type Department Care Team (Late st Contact Info) Description 02/23/2016 Orders Only [facility] Medical [facility] - Rheumatology [address] [place] [address] [phone] Isidro Heredia MD [address] [place] [address] Rheumatoid arthritis of multiple sites with [...] - 03/01/2016 11:05 AM CDTPatient notified via [employer]. * Isidro Heredia MD - 03/01/2016 9:15 AM CDTSl anemia Hb 11.8 plts ok 164 mtx ok meron documented in this encounter Plan of Treatment Upcoming Encounters Date Type Department Care Team (Late st Contact Info) Description 06/03/2024 1:00 PM MEDTRONICS TECHNICIAN Appointment [facility] - Rheumatology [address] [place] [address] 06/03/2024 2:00 PM MEDTRONICS TECHNICIAN Office Visit [facility] - Rheumatology [address] [place] [address] Gloria Smith MD [address] [place] [phone] documented as of this encounter Procedures Procedure [...] performed due to degeneration of specimen. ?TEST: ??[id number] ??Sedimentation Rate-Westergren Ancillary determined the test is not needed 02/23/2016 1:30 AM CDT 02/23/2016 6:29 PM CDT Narrative Resulting Agency Comment [facility] [address] [facility] ??[facility] [phone] Isidro Heredia MD LAB - CHEMISTRY ORD ERABLES [facility] INSURANCE BILL [address] [place] [address] * SED RATE WESTERGREN (02/23/2016 1:30 AM CDT) Erythrocyte Sedimentation Rate Westergren NOT NEEDED mm/hr [facility] INSURANCE BILL Comment: Test could not be performed due to degeneration of specimen. Ancillary determined the test is not needed Blood BLOOD SPECIMEN / Unknown 02/23/2016 1:30 AM CDT 02/23/2016 6:29 PM CDT Narrative Resulting Agency Comment [facility] [address] [facility] ??[facility] [phone] Isidro Heredia MD LAB - HEMATOLOGY OR DERABLES [facility] INSURANCE BILL [address] [place] [address] * (ABNORMAL) COMPREHENSIVE METABOLIC PANEL (02/23/2016 1:30 [...] PM CDT Narrative Resulting Agency Comment [facility] [address] [facility] ??[facility] [id number] Isidro Heredia MD LAB - CHEMISTRY ORD ERABLES [facility] INSURANCE BILL [address] [place] [address] * (ABNORMAL) CBC W AUTO DIFFERENTIAL (02/23/2016 [...] CDT Narrative Resulting Agency Comment [facility] [address] ??[facility] [phone] Isidro Heredia MD LAB - HEMATOLOGY OR DERABLES [facility] INSURANCE BILL [address] [place] [address] documented in this encounter Visit Diagnoses Diagnosis Rheumatoid arthritis of multiple 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
--- OUTSIDE RECORDS SUMMARY | 2024-05-10 18:48 | XMS_ITS | Encounter Summary ---
Author Organization [facility] Address [address] [facility] [place] [address] Care Team Providers Care Supervisor Dried Yeast Name Role Phone Isidro Heredia MD Unavailable [phone] Tomas Hyman MD Primary Care Provider [phone] Reason for Visit * Reason Comments Low Back Pain * Evaluate & Treat (Routine) - Closed Specialty Diagnoses / Procedures Referred By Contsarahi t Referred To Contact Neurological Surgery Diagnoses LBP (low back pain) Procedures [place] OFFICE/OUTPT VISIT,JULITO LOPEZ II, Jason E, MD [address] [place] [address] Shade Yao MD [address] [place] [address] Referral ID Status Reason Start Date Expiration Date Visits Re quested Visits Authorized [id number] Closed 06/08/2014 06/08/2015 5 5 Encounter Details Date Type Department Care Team (Latest Contact Info) Description 07/13/2014 11:45 AM CDT Office Visit [facility] [employer] [address] [place] [address] [place] [address] Shade Yao MD [address] [place] [phone] Lumbago (Primary Dx); Degeneration of lumbar [...] Pinky Aleman - 07/14/2014 8:21 AM CDT [phone] - [facility] doesn't accept consults * Shade Yao MD [...] st Contact Info) Description 06/03/2024 1:00 PM BEHAVIOR SUPPORT SPECIALIST Appointment [facility] - Rheumatology [address] [place] [address] 06/03/2024 2:00 PM BEHAVIOR SUPPORT SPECIALIST Office Visit [facility] - Rheumatology [address] [place] [address] Gloria Smith MD [address] [place] [phone] documented as of this encounter Visit Diagnoses Diagnosis Lumbago- Primary Degeneration of lumbar or lumbosacral intervertebral disc documented in this encounter Care Teams Supervisor Dried Yeast Relationship Specialty Start Date End Date Tomas Hyman MD [address] [place] [address] PCP - General Family Medicine 12/31/13 05/09/18 Isidro Heredia MD Rheumatology 02/09/11 documented as of this encounter
--- OUTSIDE RECORDS SUMMARY | 2024-05-10 18:48 | XMS_ITS | Encounter Summary ---
Author Organization [facility] Address [address] [facility] [place] [address] Care Team Providers Care Veneer Jointer Offbearer Name Role Phone Isidro Heredia MD Unavailable Tomas Hyman MD Primary Care Provider [phone] Reason for Visit * Reason Comments Pain Back lower back; aching Pain Knee bilat knee pain;achi ng;swelling * Evaluate & Treat (Routine) - Closed Specialty Diagnoses / Procedures Referred By Lawrence t Referred To Contact Diagnoses Rheumatoid arthritis(714.0) (HCC) Procedures [place] OFFICE VISIT DURING HOURS Tomas Hyman MD [address] [place] [address] Isidro Heredia MD [address] [place] [address] Referral ID Status Reason Start Date Expiration Date Visits Re quested Visits Authorized [id number] Closed 08/12/2014 02/08/2015 3 3 Encounter Details Date Type Department Care Team (Late st Contact Info) Description 10/07/2014 2:15 PM CDT Office Visit [facility] [employer] [facility] - Rheumatology [address] [place] [address] Isidro Heredia MD [address] [facility] [facility] [address] Rheumatoid arthritis(714.0) (HCC) (Primary Dx); [...] PO) Take by mouth once daily. ??? Pzoabmeumgq-Licrxumyx-Xro C-Mn (GLUCOSAMINE CHONDR 1500 COMPLX PO) Take [...] st Contact Info) Description 06/03/2024 1:00 PM SERVICES MGR Appointment [facility] - Rheumatology [address] [place] [address] [phone] 06/03/2024 2:00 PM SERVICES MGR Office Visit [facility] - Rheumatology [address] [place] [address] Gloria Smith MD [address] [place] [phone] documented as of this encounter Visit Diagnoses Diagnosis Rheumatoid arthritis(714.0) ([facility])- Primary Rheumatoid arthritis Chronic pain syndrome documented in this encounter Care Teams Veneer Jointer Offbearer Relationship Specialty Start Date End Date Tomas Hyman MD [address] [facility] [address] [place] [address] PCP - General Family Medicine 12/31/13 05/09/18 Isidro Heredia MD Rheumatology 02/09/11 documented as of this encounter
--- OUTSIDE RECORDS SUMMARY | 2024-05-10 18:48 | XMS_ITS | Encounter Summary ---
Author Organization [facility] Address [address] [facility] [place] [address] Care Team Providers Care Private Client Advisor Name Role Phone Isidro Heredia MD Unavailable [phone] Tomas Hyman MD Primary Care Provider [phone] Encounter Details Date Type Department Care Team (Late st Contact Info) Description 08/16/2015 Orders Only [facility] Medical [facility] - Rheumatology [address] [place] [address] [phone] Isidro Heredia MD [address] [place] [address] Rheumatoid arthritis of multiple sites with [...] Contact Info) Description 06/03/2024 1:00 PM MECHANICAL PIPING DESIGNER Appointment [facility] - Rheumatology [address] [place] [address] [phone] 06/03/2024 2:00 PM MECHANICAL PIPING DESIGNER Office Visit [facility] - Rheumatology [address] [place] [address] Gloria Smith MD [address] [place] [phone] documented as of this encounter Procedures [...] 7:43 PM CDT Narrative Resulting Agency Comment [facility] [address] [facility] ??Ziyad PENNY [phone] Isidro Heredia MD LAB - HEMATOLOGY OR [...] 7:43 PM CDT Narrative Resulting Agency Comment [facility] [address] [facility] ??Ziyad PENNY [id number] Isidro Heredia MD LAB - CHEMISTRY ORD [...] 7:43 PM CDT Narrative Resulting Agency Comment [facility] [address] [facility] ??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
--- OUTSIDE RECORDS SUMMARY | 2024-05-10 18:48 | XMS_ITS | Encounter Summary ---
Author Organization [facility] Address [address] [facility] [place] [address] Care Team Providers Care System Sales Consultant Name Role Phone Isidro Heredia MD Unavailable [phone] Tomas Hyman MD Primary Care Provider [phone] Reason for Visit * Treatment (Routine) - Closed Specialty Diagnoses / Procedures Referred By Lawrnece shah Referred To Contact Infusion Therapy Nurse Diagnoses Rheumatoid arthritis(714.0) ([facility]) Procedures [place] INJECTION TOCILIZUMAB 1 MG Isidro Heredia MD 58 [place] [address] [address] Referral ID Status Reason Start Date Expiration Date Visits Re quested Visits Authorized [id number] Closed 09/29/2014 04/29/2015 1 6 Encounter Details Date Type Department Care Team (Late st Contact Info) Description 11/05/2014 2:34 PM CDT - 11/05/2014 11:59 PM CDT Hospital Encounter [facility] Medical [facility] - Rheumatology [address] [place] [address] Isidro Heredia MD [address] [place] [address] Discharge Disposition: Home or Self [...] Foreman RN - 11/05/2014 3:58 PM CDT [place] Rheumatology Post Infusion instructions [...] Sunday through 01-02 call the office at [phone] After hours or on the weekend call the exchange at [phone] If you have had lab work done [...] Sig Dispensed Refills Start Date End Date Ygurrmphbta-Ullkggjmj-Z it C-Mn (GLUCOSAMINE CHONDR 1500 COMPLX PO) [...] 11/05/2014 3:56 PM CDT JOSE Chalino Deng [id number] 11/05/2014 Diagnosis: Rheumatoid arthritis(714.0) [714.0]. Patient questionnaire [...] Contact Info) Description 06/03/2024 1:00 PM MECHANICAL APPLICATIONS ENGINEER Appointment [facility] - Rheumatology [address] [place] [address] [phone] 06/03/2024 2:00 PM MECHANICAL APPLICATIONS ENGINEER Office Visit [facility] - Rheumatology [address] [place] [address] Gloria Smith MD [address] [place] [phone] documented as of this encounter Visit Diagnoses [...] r documented in this encounter Care Teams System Sales Consultant Relationship Specialty Start Date End Date Tomas Hyman MD [address] [place] [address] PCP - General Family Medicine 12/31/13 05/09/18 Isidro Heredia MD Rheumatology 02/09/11 documented as of this encounter
--- OUTSIDE RECORDS SUMMARY | 2024-05-10 18:48 | XMS_ITS | Encounter Summary ---
Author Organization [facility] Address [address] [facility] [place] [address] Care Team Providers Care Sand Technologist Name Role Phone Isidro Heredia MD Unavailable Tomas Hyman MD Primary Care Provider [phone] Encounter Details Date Type Department Care Team (Latest Contact Info) Description 04/06/2015 1:43 PM [place] - 04/06/2015 11:59 PM [place] [place] Hospital Encounter [facility] [address] [place] [address] [place] [address] [place] [phone] Discharge Disposition: Home or Self Care Social [...] Comments Blood Pressure 132/87 04/06/2015 2:17 PM [place] [place] Pulse 89 04/06/2015 2:17 PM [place] [place] Temperature - - Respiratory Rate 16 04/06/2015 2:17 PM [place] [place] Oxygen Saturation 98% 04/06/2015 2:17 PM [facility] [place] Inhaled Oxygen Concentration - - Weight - - Height - - Body Mass Index - - documented in this encounter Medications at Time of Discharge Medication Sig Dispensed Refills Start Date End Date Xldseilgdgr-Qujrkjbrb-I it C-Mn (GLUCOSAMINE CHONDR 1500 COMPLX PO) [...] st Contact Info) Description 06/03/2024 1:00 PM [place] Appointment [facility] - Rheumatology [address] [place] [address] [phone] 06/03/2024 2:00 PM [place] Office Visit [facility] - Rheumatology [address] [place] [address] [phone] Gloria Smith MD [address] [place] [phone] Pending Results Name Type Priority Associated Diagnoses Date /Time PAIN MANAGEMENT PROCEDURE TIME Imaging Routine Displacement of lumbar intervertebral disc without myelopathy Thoracic or lumbosacral neuritis or radiculitis, unspecified 04/06/2015 2:12 PM [facility] [place] documented as of this encounter Visit Diagnoses Diagnosis Displacement of lumbar intervertebral disc without myelopathy- Primary documented in this encounter Care Teams Sand Technologist Relationship Specialty Start Date End Date Tomas Hyman MD [address] [facility] [address] [place] [address] PCP - General Family Medicine 12/31/13 05/09/18 Isidro Heredia MD Rheumatology 02/09/11 documented as of this encounter
--- OUTSIDE RECORDS SUMMARY | 2024-05-10 18:48 | XMS_ITS | Encounter Summary ---
Author Organization [facility] Address [address] [facility] [place] [address] Care Team Providers Care Pharmacovigilance Safety Expert Name Role Phone Isidro Heredia MD Unavailable [phone] Tomas Hyman MD Primary Care Provider [phone] Reason for Visit * Treatment (Routine) - Closed Specialty Diagnoses / Procedures Referred By Lawrence shah Referred To Contact Infusion Therapy Nurse Diagnoses Rheumatoid arthritis(714.0) ([facility]) Procedures [place] INJECTION TOCILIZUMAB 1 MG Isidro Heredia MD 61 [place] [address] [phone] Referral ID Status Reason Start Date Expiration Date Visits Re quested Visits Authorized [id number] Closed 09/29/2014 04/29/2015 1 6 Encounter Details Date Type Department Care Team (Late st Contact Info) Description 03/04/2015 1:40 PM DESIGN QUALITY ENGINEER - 03/04/2015 11:59 PM DESIGN QUALITY ENGINEER Hospital Encounter [facility] Medical [facility] - Rheumatology [address] [place] [address] Isidro Heredia MD 58 [place] [address] Discharge Disposition: Home or Self [...] Comments Blood Pressure 133/88 03/04/2015 2:01 PM DESIGN QUALITY ENGINEER Pulse 103 03/04/2015 2:01 PM DESIGN QUALITY ENGINEER Temperature 37 ??C (98.6 ??F) 03/04/2015 2:01 PM DESIGN QUALITY ENGINEER Respiratory Rate 16 03/04/2015 2:01 PM DESIGN QUALITY ENGINEER Oxygen Saturation - - Inhaled Oxygen Concentration - - Weight 116.1 kg (256 lb) 03/04/2015 2:01 PM DESIGN QUALITY ENGINEER Height - - Body Mass Index 36.73 02/04/2015 2:14 PM CDT documented in this encounter Discharge Instructions * Discharge Instructions* Carlos Foreman RN - 03/04/2015 2:54 PM DESIGN QUALITY ENGINEER [place] Rheumatology Post Infusion instructions You have [...] Sunday through Sunday-5 call the office at [phone] After hours or on the weekend call the exchange at [phone] If you have had lab work done [...] Hospital as your provider. Carlos Foreman RN GN QUALITY ENGINEER documented in this encounter Medications at Time of Discharge Medication Sig Dispensed Refills Start Date End Date Eusosvdiapz-Ssdfmfboa-F it C-Mn (GLUCOSAMINE CHONDR 1500 COMPLX PO) [...] oxyCODONE-acetaminophen (PERCOCET) 5-325 MG tabletIndications:Rheum atoid arthritis(714.0) ([facility]) Take 1 Tab by mouth [...] - 03/04/2015 2:34 PM CST JOSE Deng [id number] 03/04/2015 Diagnosis: Rheumatoid arthritis, unspecified [M06.9]. Patient [...] Yes Next treatment? 4wk Carlos Foreman RN GN QUALITY ENGINEER documented in this encounter Plan of Treatment Upcoming Encounters Date Type Department Care Team (Late st Contact Info) Description 06/03/2024 1:00 PM DESIGN QUALITY ENGINEER Appointment [facility] - Rheumatology [address] [place] [address] [phone] 06/03/2024 2:00 PM DESIGN QUALITY ENGINEER Office Visit [facility] - Rheumatology [address] [place] [address] [phone] Gloria Smith MD [address] [place] [phone] documented as of this encounter Visit Diagnoses Diagnosis Rheumatoid arthritis(714.0) ([facility]) Rheumatoid arthritis documented in this [...] 24hrs RT $ Given 03/04/2015 2:16 PM DESIGN QUALITY ENGINEER 800 mg 118 mL/hr documented in this encounter Care Teams Pharmacovigilance Safety Expert Relationship Specialty Start Date End Date Tomas Hyman MD [address] [facility] [address] [place] [address] PCP - General Family Medicine 12/31/13 05/09/18 Isidro Heredia MD Rheumatology 02/09/11 documented as of this encounter
--- OUTSIDE RECORDS SUMMARY | 2024-05-10 18:48 | XMS_ITS | Encounter Summary ---
Author Organization [facility] Address [address] [place] [address] Care Team Providers Care Circular Sawyer Stone Name Role Phone Isidro Heredia MD Unavailable [phone] Tomas Hyman MD Primary Care Provider [phone] Reason for Visit * Treatment (Routine) - Closed Specialty Diagnoses / Procedures Referred By Lawrence shah Referred To Contact [place] [address] [address] [facility] Pain Care [address] [place] [address] Referral ID Status Reason Start Date Expiration Date Visits Re quested Visits Authorized [id number] Closed 12/21/2014 06/19/2015 1 6 Encounter Details Date Type Department Care Team (Latest Contact Info) Description 12/29/2014 9:03 AM CDT - 12/29/2014 9:04 AM CDT Hospital Encounter [facility] Health Pain Care [address] [place] [address] [place] [address] [address] Discharge Disposition: Home or Self [...] Sig Dispensed Refills Start Date End Date Omurebvatee-Drevljwji-X it C-Mn (GLUCOSAMINE CHONDR 1500 COMPLX PO) [...] st Contact Info) Description 06/03/2024 1:00 PM SETTER COLD ROLLING MACHINE Appointment [facility] - Rheumatology [address] [place] [address] [phone] 06/03/2024 2:00 PM SETTER COLD ROLLING MACHINE Office Visit [facility] - Rheumatology [address] [place] [address] [phone] Gloria Smith MD [address] [place] [phone] documented as of this encounter Visit Diagnoses Not on filedocumented in this encounter Care Teams Circular Sawyer Stone Relationship Specialty Start Date End Date Tomas Hyman MD [address] [facility] [address] [place] [address] PCP - General Family Medicine 12/31/13 05/09/18 Isidro Heredia MD Rheumatology 02/09/11 documented as of this encounter
--- OUTSIDE RECORDS SUMMARY | 2024-05-10 18:48 | XMS_ITS | Encounter Summary ---
Author Organization [facility] Address [address] [facility] [place] [address] Care Team Providers Care Cellophane Tester Name Role Phone Isidro Heredia MD Unavailable [phone] Tomas Hyman MD Primary Care Provider [phone] Reason for Visit * Treatment (Routine) - Closed Specialty Diagnoses / Procedures Referred By Lawrence shah Referred To Contact Infusion Therapy Nurse Diagnoses Rheumatoid arthritis(714.0) ([facility]) Procedures [place] INJECTION TOCILIZUMAB 1 MG Isidro Heredia MD [address] [place] [address] [address] Referral ID Status Reason Start Date Expiration Date Visits Re quested Visits Authorized [id number] Closed 09/29/2014 04/29/2015 1 6 Encounter Details Date Type Department Care Team (Late st Contact Info) Description 10/07/2014 1:54 PM CDT - 10/07/2014 11:59 PM CDT Hospital Encounter [facility] Medical [facility] - Rheumatology [address] [place] [address] Isidro Heredia MD 58 [place] [address] Discharge Disposition: Home or Self [...] Foreman RN - 10/07/2014 2:20 PM CDT [place] Rheumatology Post Infusion instructions [...] Sunday through 01-02 call the office at [phone] After hours or on the weekend call the exchange at [phone] If you have had lab work done [...] Sig Dispensed Refills Start Date End Date Axybsenvwfc-Qfphsjaab-Bs t C-Mn (GLUCOSAMINE CHONDR 1500 COMPLX PO) [...] 10/07/2014 2:29 PM CDT JOSE Chalino Deng [id number] 10/07/2014 Diagnosis: Rheumatoid arthritis(714.0) [714.0]. Patient questionnaire [...] st Contact Info) Description 06/03/2024 1:00 PM COLLISION MECHANIC Appointment [facility] - Rheumatology [address] [place] [address] [phone] 06/03/2024 2:00 PM COLLISION MECHANIC Office Visit [facility] - Rheumatology [address] [place] [phone] Gloria Smith MD [address] [place] [phone] documented as of this encounter Visit Diagnoses Diagnosis Rheumatoid arthritis(714.0) ([facility]) Rheumatoid arthritis documented in this encounter Administered [...] r documented in this encounter Care Teams Cellophane Tester Relationship Specialty Start Date End Date Tomas Hyman MD [address] [facility] [address] [place] [address] PCP - General Family Medicine 12/31/13 05/09/18 sIidro Heredia MD Rheumatology 02/09/11 documented as of this encounter
--- OUTSIDE RECORDS SUMMARY | 2024-05-10 18:48 | XMS_ITS | Encounter Summary ---
Author Organization [facility] Address [address] [facility] [place] [address] Care Team Providers Care Soliciting Freight Agent Name Role Phone Isidro Heredia MD Unavailable [phone] Tomas Hyman MD Primary Care Provider [phone] Reason for Visit * Treatment (Routine) - Closed Specialty Diagnoses / Procedures Referred By Lawrence shah Referred To Contact Infusion Therapy Nurse Diagnoses Rheumatoid arthritis(714.0) ([facility]) Procedures [place] INJECTION TOCILIZUMAB 1 MG Isidro Heredia MD [address] [place] [address] [address] Referral ID Status Reason Start Date Expiration Date Visits Re quested Visits Authorized [id number] Closed 09/29/2014 04/29/2015 1 6 Encounter Details Date Type Department Care Team (Late st Contact Info) Description 01/07/2015 1:55 PM CDT - 01/07/2015 11:59 PM CDT Hospital Encounter [facility] Medical [facility] - Rheumatology [address] [place] [address] Isidro Heredia MD 58 [facility] [address] Discharge Disposition: Home or Self [...] Foreman RN - 01/07/2015 2:30 PM CDT [place] Rheumatology Post Infusion instructions [...] Sunday through 01-02 call the office at [phone] After hours or on the weekend call the exchange at [phone] If you have had lab work done [...] have chosen [facility] as your provider. Carlos Foreman RN documented in this encounter Medications at Time of Discharge Medication Sig Dispensed Refills Start Date End Date Xgazdfunsdx-Gplpkdrqz-I it C-Mn (GLUCOSAMINE CHONDR 1500 COMPLX PO) [...] 01/07/2015 2:26 PM CDT JOSE Chalino Deng [id number] 01/07/2015 Diagnosis: Rheumatoid arthritis(714.0) [714.0]. Patient questionnaire [...] st Contact Info) Description 06/03/2024 1:00 PM BAROMETERS CALIBRATOR Appointment [facility] - Rheumatology [address] [place] [address] 06/03/2024 2:00 PM BAROMETERS CALIBRATOR Office Visit [facility] - Rheumatology [address] [place] [address] Gloria Smith MD [address] [place] [phone] documented as of this encounter Visit [...] mL/hr documented in this encounter Care Teams Soliciting Freight Agent Relationship Specialty Start Date End Date Tomas Hyman MD [address] [facility] [address] [place] [address] PCP - General Family Medicine 12/31/13 05/09/18 Isidro Heredia MD Rheumatology 02/09/11 documented as of this encounter
--- OUTSIDE RECORDS SUMMARY | 2024-05-10 18:48 | XMS_ITS | Encounter Summary ---
Author Organization [facility] Address [address] [facility] [place] [address] Care Team Providers Care Relations Coordinator Name Role Phone Isidro Heredia MD Unavailable [phone] Tomas Hyman MD Primary Care Provider [phone] Reason for Visit * Treatment (Routine) - Closed Specialty Diagnoses / Procedures Referred By Lawrence shah Referred To Contact Infusion Therapy Nurse Diagnoses Rheumatoid arthritis(714.0) (HCC) Rheumatoid arthritis without rheumatoid factor, multiple sites (HCC) Procedures [place] INFLIXIMAB INJECTION [place] INJECTION TOCILIZUMAB 1 MG Isidro Heredia MD [address] [place] [address] [address] Referral ID Status Reason Start Date Expiration Date Visits Re quested Visits Authorized [id number] Closed 01/07/2015 01/08/2016 1 12 Encounter Details Date Type Department Care Team (Late st Contact Info) Description 07/19/2015 4:20 PM CDT - 07/19/2015 11:59 PM CDT Hospital Encounter [facility] Medical [facility] - Rheumatology [address] [place] [address] Isidro Heredia MD 58 [place] [address] Discharge Disposition: Home or Self [...] Sahu RN - 07/19/2015 4:51 PM CDT [place] Rheumatology Post Infusion instructions [...] through Sunday 9-5 call the office at [phone] After hours or on the weekend call the exchange at [phone] If you have had lab work done [...] Sig Dispensed Refills Start Date End Date Zlchwtfpuxz-Dsgdtdwpo-T it C-Mn (GLUCOSAMINE CHONDR 1500 COMPLX PO) [...] - 07/19/2015 4:53 PM CDT JOSE Deng [id number] 07/19/2015 Diagnosis: Rheumatoid arthritis without rheumatoid factor, [...] Contact Info) Description 06/03/2024 1:00 PM ROLL FORM OPERATOR Appointment [facility] - Rheumatology [address] [place] [address] [phone] 06/03/2024 2:00 PM ROLL FORM OPERATOR Office Visit [facility] - Rheumatology [address] [place] [address] [phone] Gloria Smith MD [address] [place] [phone] documented as of this encounter Visit Diagnoses [...] mL/hr documented in this encounter Care Teams Relations Coordinator Relationship Specialty Start Date End Date Tomas Hyman MD [address] [facility] [address] [place] [address] PCP - General Family Medicine 12/31/13 05/09/18 Isidro Heredia MD Rheumatology 02/09/11 documented as of this encounter
--- OUTSIDE RECORDS SUMMARY | 2024-05-10 18:48 | XMS_ITS | Encounter Summary ---
Author Organization [facility] Address [address] [place] [address] Care Team Providers Care Campaign Assistant Name Role Phone Isidro Heredia MD Unavailable [phone] Tomas Hyman MD Primary Care Provider [phone] Reason for Visit * Treatment (Routine) - Closed Specialty Diagnoses / Procedures Referred By Lawrence shah Referred To Contact [place] [address] [address] [facility] Pain Care [address] [place] [address] Referral ID Status Reason Start Date Expiration Date Visits Re quested Visits Authorized [id number] Closed 12/21/2014 06/19/2015 1 6 Encounter Details Date Type Department Care Team (Latest Contact Info) Description 04/06/2015 1:30 PM EVENT EXECUTIVE - 04/06/2015 1:42 PM [facility] Hospital Encounter [facility] Pain Care [phone] [place] [address] [place] [address] [address] Discharge Disposition: Home or Self [...] Beatris Gallegos RN - 04/06/2015 1:56 PM EVENT EXECUTIVE [facility] Pain Discharge Instructions [...] headache, or any other problems, please call [phone] or after hours callDr. Mirza at [phone] and tell them your physician's name. The exchange will alert the physician division chair. If sedation is given: No sedation given. For Your Next Visit: No additional instructions. Other Instructions: May remove band-aid in 12 Hours. Return next week follow up in 2 weeks. T EXECUTIVE documented in this encounter Medications at Time of Discharge Medication Sig Dispensed Refills Start Date End Date Gqhvzutijzq-Tttinsdnx-Q it C-Mn (GLUCOSAMINE CHONDR 1500 COMPLX PO) [...] Coumidin, Plavix or other blood thinners. Responsible tow car driver is not needed due to [...] Follow Up: 1 week Alejandro Mirza MD T EXECUTIVE documented in this encounter Plan of Treatment Upcoming Encounters Date Type Department Care Team (Late st Contact Info) Description 06/03/2024 1:00 PM EVENT EXECUTIVE Appointment [facility] - Rheumatology [address] [place] [address] [phone] 06/03/2024 2:00 PM EVENT EXECUTIVE Office Visit [facility] - Rheumatology [address] [place] [address] [phone] Gloria Smith MD [address] [place] [phone] documented as of this encounter Visit Diagnoses Not on filedocumented in this encounter Administered Medications Inactive Administered Medications - up to 3 most recent administrations Medication Order MAR Action Action Date Dose Rate Site methylPREDNISolone acetate (DEPO-MEDROL) injection 80 mg 80 mg, Intramuscular, INTRA-PROCEDURE ONCE, 1 dose, On Sun04/06/15 at 1356 $ Admin. by Other Provider 04/06/2015 2:03 PM EVENT EXECUTIVE 80 mg Back documented in this encounter Care Teams Campaign Assistant Relationship Specialty Start Date End Date Tomas Hyman MD [address] [facility] [address] [place] [address] PCP - General Family Medicine 12/31/13 05/09/18 Isidro Heredia MD Rheumatology 02/09/11 documented as of this encounter
--- OUTSIDE RECORDS SUMMARY | 2024-05-10 18:48 | XMS_ITS | Encounter Summary ---
Author Organization [facility] Address [address] [place] [address] Care Team Providers Care Zipper Trimmer Hand Name Role Phone Isidro Heredia MD Unavailable [phone] Tomas Hyman MD Primary Care Provider [phone] Reason for Visit * Reason Onset Date Comments MEDICATION REFILL 07/19/2015 Encounter Details Date Type Department Care Team (Late Contact Info) Description 07/19/2015 Refill [facility] - Rheumatology [address] [place] [address] Isidro Heredia MD [address] [place] [address] MEDICATION REFILL Social History Tobacco Use [...] (Late Contact Info) Description 06/03/2024 1:00 PM AT HOME INDEPENDENT CALL CENTER AGENT Appointment [facility] - Rheumatology [address] [place] [address] 06/03/2024 2:00 PM AT HOME INDEPENDENT CALL CENTER AGENT Office Visit [facility] - Rheumatology [address] [place] [address] Gloria Smith MD [address] [place] [id number] documented as of this encounter Visit Diagnoses Diagnosis Rheumatoid arthritis of multiple 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 factor (HCC)- Primary Rheumatoid arthritis documented in this encounter Care Teams Zipper Trimmer Hand Relationship Specialty Start Date End Date Tomas Hyman MD [address] [facility] [address] [place] [address] PCP - General Family Medicine 12/31/13 05/09/18 Isidro Heredia MD Rheumatology 02/09/11 documented as of this encounter
--- OUTSIDE RECORDS SUMMARY | 2024-05-10 18:48 | XMS_ITS | Encounter Summary ---
Author Organization [facility] Address [address] [facility] [place] [address] Care Team Providers Care Ferry Engineer Name Role Phone Isidro Heredia MD Unavailable [phone] Tomas Hyman MD Primary Care Provider [phone] Reason for Visit * Reason Onset Date Comments Forms 06/24/2014 Encounter Details Date Type Department Care Team (Late st Contact Info) Description 06/24/2014 Telephone [facility] Medical [facility] - Rheumatology [address] [place] [address] [phone] Isidro Heredia MD [address] [place] [address] Forms Social History Tobacco Use Types [...] well. I will call him once completed. S ACCOUNT LEADER * Telephone Encounter - Erika Julien - 06/24/2014 11:59 AM CST Pt wants to know what the statis is on his forms for work S ACCOUNT LEADER documented in this encounter Plan of Treatment Upcoming Encounters Date Type Department Care Team (Late st Contact Info) Description 06/03/2024 1:00 PM SALES ACCOUNT LEADER Appointment [facility] - Rheumatology [address] [place] [address] [phone] 06/03/2024 2:00 PM SALES ACCOUNT LEADER Office Visit [facility] - Rheumatology [address] [place] [address] Gloria Smith MD [address] [place] [phone] documented as of this encounter Visit Diagnoses Not on filedocumented in this encounter Care Teams Ferry Engineer Relationship Specialty Start Date End Date Tomas Hyman MD [address] [place] [address] PCP - General Family Medicine 12/31/13 05/09/18 Isidro Heredia MD Rheumatology 02/09/11 documented as of this encounter
--- OUTSIDE RECORDS SUMMARY | 2024-05-10 18:48 | XMS_ITS | Encounter Summary ---
Author Organization [facility] Address [address] [facility] [place] [address] Care Team Providers Care Signal Maintainer Name Role Phone Hitesh Solis MD Unavailable [phone] Tomas Hyman MD Primary Care Provider [phone] Reason for Visit * Reason Comments Rheumatoid Arthritis Encounter Details Date Type Department Care Team (Late st Contact Info) Description 06/14/2015 3:30 PM RADIO TALK SHOW HOST Office Visit [facility] - Rheumatology [address] [place] [address] Hitesh Solis MD [address] [place] [address] Rheumatoid arthritis of multiple sites with [...] Comments Blood Pressure 137/84 06/14/2015 3:34 PM RADIO TALK SHOW HOST Pulse 98 06/14/2015 3:34 PM RADIO TALK SHOW HOST Temperature - - Respiratory Rate - - [...] PO) Take by mouth once daily. ??? Izueyhznkkd-Cpluxwgrj-Eym C-Mn (GLUCOSAMINE CHONDR 1500 COMPLX PO) Take [...] on: 06/14/2015 04:16 PM Modules accepted: Orders O TALK SHOW HOST documented in this encounter Plan of Treatment Upcoming Encounters Date Type Department Care Team (Late st Contact Info) Description 06/03/2024 1:00 PM RADIO TALK SHOW HOST Appointment [facility] - Rheumatology [address] [place] [address] 06/03/2024 2:00 PM RADIO TALK SHOW HOST Office Visit [facility] - Rheumatology [address] [place] [address] Gloria Smith MD [address] [place] [phone] documented as of this encounter Visit Diagnoses Diagnosis Rheumatoid arthritis of multiple sites with negative rheumatoid factor (HCC)- Primary Chronic pain syndrome Right lumbar radiculopathy Thoracic or lumbosacral neuritis or radiculitis, unspecified Rheumatoid arthritis of 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
--- OUTSIDE RECORDS SUMMARY | 2024-05-10 18:48 | XMS_ITS | Encounter Summary ---
Author Organization [facility] Address [address] [facility] [place] [address] Care Team Providers Care Job Development Specialist Name Role Phone Isidro Heredia MD Unavailable [phone] Tomas Hyman MD Primary Care Provider [phone] Reason for Visit * Reason Onset Date Comments MEDICATION REFILL 05/17/2015 Encounter Details Date Type Department Care Team (Late Contact Info) Description 05/17/2015 Refill [facility] - Rheumatology [address] [place] [address] Isidro Heredia MD [address] [place] [address] MEDICATION REFILL Social History Tobacco Use [...] Contact Info) Description 06/03/2024 1:00 PM CENTRAL SERVICE SUPPLY DISTRIBUTOR Appointment [facility] - Rheumatology [address] [place] [address] 06/03/2024 2:00 PM CENTRAL SERVICE SUPPLY DISTRIBUTOR Office Visit [facility] - Rheumatology [address] [place] [address] Gloria Smith MD [address] [place] [phone] documented as of this encounter Visit Diagnoses Diagnosis Rheumatoid arthritis of multiple 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 factor (HCC)- Primary Rheumatoid arthritis documented in this encounter Care Teams Job Development Specialist Relationship Specialty Start Date End Date Tomas Hyman MD [address] [facility] [address] [place] [address] PCP - General Family Medicine 12/31/13 05/09/18 Isidro Heredia MD Rheumatology 02/09/11 documented as of this encounter
--- OUTSIDE RECORDS SUMMARY | 2024-05-10 18:48 | XMS_ITS | Encounter Summary ---
Author Organization [facility] Address [address] [facility] [place] [address] Care Team Providers Care Top Hat Body Maker Name Role Phone Isidro Heredia MD Unavailable [phone] Tomas Hyman MD Primary Care Provider [phone] Reason for Visit * Treatment (Routine) - Closed Specialty Diagnoses / Procedures Referred By Lawrence shah Referred To Contact Infusion Therapy Nurse Diagnoses Rheumatoid arthritis(714.0) (HCC) Rheumatoid arthritis without rheumatoid factor, multiple sites (HCC) Procedures WA INFLIXIMAB INJECTION WA INJECTION TOCILIZUMAB 1 MG Isidro Heredia MD [address] [place] [address] [address] Referral ID Status Reason Start Date Expiration Date Visits Re quested Visits Authorized [id number] Closed 01/07/2015 01/08/2016 1 12 Encounter Details Date Type Department Care Team (Late st Contact Info) Description 02/04/2015 2:00 PM CDT - 02/04/2015 11:59 PM CDT Hospital Encounter [facility] Medical [facility] - Rheumatology [address] [place] [address] [phone] Isidro Heredia MD [address] [place] [address] Discharge Disposition: Home or Self [...] Sahu RN - 02/04/2015 2:37 PM CDT [place] Rheumatology Post Infusion instructions [...] through Sunday 9-5 call the office at [phone] After hours or on the weekend call the exchange at [phone] If you have had lab work done [...] Sig Dispensed Refills Start Date End Date Qkfotidnmcy-Ycrikwtdu-V it C-Mn (GLUCOSAMINE CHONDR 1500 COMPLX PO) [...] - 02/04/2015 2:38 PM CDT JOSE Deng [id number] 02/04/2015 Diagnosis: There are no admission diagnoses [...] Contact Info) Description 06/03/2024 1:00 PM ASSEMBLER BICYCLE Appointment [facility] - Rheumatology [address] [place] [address] 06/03/2024 2:00 PM ASSEMBLER BICYCLE Office Visit [facility] - Rheumatology [address] [place] [address] Gloria Smith MD [address] [place] [phone] documented as of this encounter Visit Diagnoses [...] mL/hr documented in this encounter Care Teams Top Hat Body Maker Relationship Specialty Start Date End Date Tomas Hyman MD [address] [facility] [address] [place] [address] PCP - General Family Medicine 12/31/13 05/09/18 Isidro Heredia MD Rheumatology 02/09/11 documented as of this encounter
--- OUTSIDE RECORDS SUMMARY | 2024-05-10 18:48 | XMS_ITS | Encounter Summary ---
Author Organization [facility] Address [address] [facility] [place] [address] Care Team Providers Care Carpet Cutter Name Role Phone Isidro Heredia MD Unavailable [phone] Tomas Hyman MD Primary Care Provider [phone] Reason for Visit * Reason Comments Pain Knee right Pain Back lower back Pain Hand obdulia hands, swollen a nd hot feeling Pain Muscle upper and lower extr emeties * Evaluate & Treat (Routine) - Closed Specialty Diagnoses / Procedures Referred By Contsarahi t Referred To Contact Diagnoses Rheumatoid arthritis(714.0) ([facility]) Procedures CT OFFICE VISIT DURING HOURS Tomas Hyman MD [address] [place] [address] Isidro Heredia MD [address] [place] [address] Referral ID Status Reason Start Date Expiration Date Visits Re quested Visits Authorized [id number] Closed 08/12/2014 02/08/2015 3 3 Encounter Details Date Type Department Care Team (Late st Contact Info) Description 08/12/2014 11:15 AM CDT Office Visit [facility] - Rheumatology [address] [place] [address] Isidro Heredia MD [address] [place] [address] Rheumatoid arthritis(714.0) (HCC) (Primary Dx) [...] PO) Take by mouth once daily. ??? Bmlykdeywqk-Fsqlowumx-Bbl C-Mn (GLUCOSAMINE CHONDR 1500 COMPLX PO) Take [...] Contact Info) Description 06/03/2024 1:00 PM SPRING REPAIRER HELPER HAND Appointment [facility] - Rheumatology [address] [place] [address] 06/03/2024 2:00 PM SPRING REPAIRER HELPER HAND Office Visit [facility] - Rheumatology [address] [place] [address] Gloria Smith MD [address] [place] [phone] documented as of this encounter Procedures Procedure [...] 6:39 PM CDT Narrative Resulting Agency Comment [facility] [employer] [address] ??[facility] [phone] Isidro Heredia MD LAB - CHEMISTRY ORD ERABLES Performing Organization Address City/[facility]/ZIP Co de Phone Number [facility] INSURANCE BILL * SED RATE WESTERGREN (08/12/2014 2:08 PM CDT) Erythrocyte Sedimentation Rate Westergren 13 0 - 30 mm/hr [facility] INSURANCE BILL Blood specimen (specimen) BLOOD SPECIMEN / Unknown 08/12/2014 2:08 PM CDT 08/12/2014 6:39 PM CDT Narrative Resulting Agency Comment [facility] [employer] ??[facility] [phone] Isidro Heredia MD LAB - HEMATOLOGY OR DERABLES [facility] INSURANCE BILL * C-REACTIVE PROTEIN (08/12/2014 2:08 PM CDT) C-Reactive Protein 1.6 0.0 - 4.9 mg/L [facility] INSURANCE BILL Blood specimen (specimen) BLOOD SPECIMEN / Unknown 08/12/2014 2:08 PM CDT 08/12/2014 6:39 PM CDT Narrative Resulting Agency Comment [facility] [address] ??[facility] [phone] Isidro Heredia MD LAB - CHEMISTRY ORD [...] CDT Narrative Resulting Agency Comment [facility] [address] ??[facility] [phone] Isidro Heredia MD LAB - CHEMISTRY ORD [...] CDT Narrative Resulting Agency Comment [facility] [address] ??[facility] [phone] Isidro Heredia MD LAB - SEROLOGY MARII [...] 6:39 PM CDT Narrative Resulting Agency Comment [address] ??[facility] [phone] Isidro Heredia MD LAB - HEMATOLOGY OR [...] (Smooth) ? Histone ? Speckled ? Sm, SERVICE ADMINISTRATOR, SCL-70, ??SLE,MCTD,Scleroderma,Sjogrens ? SS-A/SS-B ? Nucleolar ?SCL-70, PM-1/SCL ??High titers Scleroderma Poly- ? myositis/Scleroderma Overlap ? Centromere ?? Centromere ?PSS w/Crest syndrome variable ?? 08/12/2014 2:03 PM CDT 08/12/2014 6:39 PM CDT Narrative Resulting Agency Comment [facility] [place] [address] ??[place] [phone] Isidro Heredia MD LAB - PATHOLOGY/CYT OLOGY ORDERABLES Performing Organization Address [facility] Co de Phone Number [facility] INSURANCE BILL * ROSA BLOOD SCREEN W/REFLEX TITER (08/12/2014 2:03 PM CDT) ROSA See patterns [facility] INSURANCE BILL Comment: ?Negative ?? <1:80 ?Borderline ??1:80 ?Positive ?? >1:80 Blood specimen (specimen) BLOOD SPECIMEN / Unknown 08/12/2014 2:03 PM CDT 08/12/2014 6:39 PM CDT Narrative Resulting Agency Comment [facility] [address] ??[place] [phone] Isidro Heredia MD LAB - CHEMISTRY ORD ERABLES Performing Organization Address [facility]/ZIP Co de Phone Number [facility] INSURANCE [...] CDT Narrative Resulting Agency Comment [facility] [address] ??[facility] [phone] Isidro Heredia MD LAB - SEROLOGY MARII ARAUJO Performing Organization Address [facility] Co de Phone Number [facility] INSURANCE BILL * C-REACTIVE PROTEIN (08/12/2014 2:03 PM CDT) C-Reactive Protein 1.5 0.0 - 4.9 mg/L [facility] INSURANCE BILL Blood specimen (specimen) BLOOD SPECIMEN / Unknown 08/12/2014 2:03 PM CDT 08/12/2014 6:39 PM CDT Narrative Resulting Agency Comment [facility] [place] [address] [facility] ??[place] [phone] Isidro Heredia MD LAB - CHEMISTRY CALEB [...] CDT Narrative Resulting Agency Comment [facility] [address] ??[facility] [phone] Isidro Heredia MD LAB - CHEMISTRY ORD [...] CDT Narrative Resulting Agency Comment [facility] [address] ??[facility] [phone] Isidro Heredia MD LAB - HEMATOLOGY OR [...] arthritis documented in this encounter Care Teams Carpet Cutter Relationship Specialty Start Date End Date Tomas Hyman MD [address] [place] [address] PCP - General Family Medicine 12/31/13 05/09/18 Isidro Heredia MD Rheumatology 02/09/11 documented as of this encounter
--- OUTSIDE RECORDS SUMMARY | 2024-05-10 18:48 | XMS_ITS | Encounter Summary ---
Author Organization [facility] Address [address] [facility] [place] [address] Care Team Providers Care Fitness Worker Name Role Phone Isidro Heredia MD Unavailable [phone] Tomas Hyman MD Primary Care Provider [phone] Encounter Details Date Type Department Care Team (Late st Contact Info) Description 11/05/2014 Orders Only [facility] Medical [facility] - Rheumatology [address] [place] [address] [phone] Isidro Heredia MD [address] [place] [address] Rheumatoid arthritis(714.0) ([facility]) Social History Tobacco Use Types Packs/Day Years [...] Contact Info) Description 06/03/2024 1:00 PM GENERAL MANAGER FOOD Appointment [facility] - Rheumatology [address] [place] [address] 06/03/2024 2:00 PM GENERAL MANAGER FOOD Office Visit [facility] - Rheumatology [address] [place] [address] Gloria Smith MD [address] [place] [phone] documented as of this encounter Procedures Procedure Name Priority Date/Time Associated Diagnosis Comments ERYTHROCYTE SEDIMENTATION RATE Routine 11/05/2014 12:00 AM CDT Rheumatoid arthritis(714.0) ([facility]) CBC W AUTO DIFFERENTIAL Routine 11/05/2014 12:00 AM CDT Rheumatoid arthritis(714.0) ([facility]) COMPREHENSIVE METABOLIC PANEL Routine 11/05/2014 12:00 AM CDT Rheumatoid arthritis(714.0) ([facility]) documented in this encounter Results * SED RATE WESTERGREN (11/05/2014 12:00 AM CDT) Erythrocyte Sedimentation Rate Westergren 5 0 - 30 mm/hr [facility] INSURANCE BILL Blood specimen (specimen) BLOOD SPECIMEN / Unknown 11/05/2014 11/05/2014 10:20 PM CDT Narrative Resulting Agency Comment [facility] [address] ??[facility]placed by [facility] [phone] Isidro Heredia MD LAB - HEMATOLOGY OR [...] CDT Narrative Resulting Agency Comment [facility] [address] ??Replaced by [facility] [phone] Isidro Heredia MD LAB - CHEMISTRY ORD [...] CDT Narrative Resulting Agency Comment [facility] [address] ??Replaced by [facility] [phone] Isidro Heredia MD LAB - HEMATOLOGY OR DERABLES [facility] INSURANCE BILL documented in this encounter Visit Diagnoses Diagnosis Rheumatoid arthritis(714.0) ([facility])- Primary Rheumatoid arthritis documented in this encounter Care Teams Fitness Worker Relationship Specialty Start Date End Date Tomas Hyman MD [address] [facility] [address] [place] [address] PCP - General Family Medicine 12/31/13 05/09/18 Isidro Heredia MD Rheumatology 02/09/11 documented as of this encounter
--- OUTSIDE RECORDS SUMMARY | 2024-05-10 18:48 | XMS_ITS | Encounter Summary ---
Author Organization [facility] Address [address] [facility] [place] [address] Care Team Providers Care Plating Machine Operator Name Role Phone Isidro Heredia MD Unavailable [phone] Tomas Hyman MD Primary Care Provider [phone] Reason for Visit * Treatment (Routine) - Closed Specialty Diagnoses / Procedures Referred By Lawrence shah Referred To Contact Infusion Therapy Nurse Diagnoses Rheumatoid arthritis(714.0) ([facility]) Procedures SC INJECTION TOCILIZUMAB 1 MG Isidro Heredia MD [address] [place] [address] [address] Referral ID Status Reason Start Date Expiration Date Visits Re quested Visits Authorized [id number] Closed 05/08/2014 10/05/2014 1 6 Encounter Details Date Type Department Care Team (Late st Contact Info) Description 09/09/2014 2:30 PM CDT - 09/09/2014 11:59 PM CDT Hospital Encounter [facility] Medical [facility] - Rheumatology [address] [place] [address] Isidro Heredia MD [address] [place] [address] Discharge Disposition: Home or Self [...] Foreman, RN - 09/09/2014 3:07 PM CDT [place] Rheumatology Post Infusion instructions [...] through Sunday 9-5 call the office at [phone] After hours or on the weekend call the exchange at [phone] If you have had lab work done [...] Sig Dispensed Refills Start Date End Date Xyufbfbdyvz-Xbqazjbes-Cm t C-Mn (GLUCOSAMINE CHONDR 1500 COMPLX PO) [...] - 09/09/2014 2:51 PM CDT JOSE Deng [id number] 09/09/2014 Diagnosis: Rheumatoid arthritis [714.0]. Patient questionnaire [...] Contact Info) Description 06/03/2024 1:00 PM AUTOMOTIVE GENERAL SALES MANAGER Appointment [facility] - Rheumatology [address] [place] [address] [phone] 06/03/2024 2:00 PM AUTOMOTIVE GENERAL SALES MANAGER Office Visit [facility] - Rheumatology [address] [place] [address] Gloria Smith MD [address] [place] [phone] documented as of this encounter Visit Diagnoses [...] Hand documented in this encounter Care Teams Plating Machine Operator Relationship Specialty Start Date End Date Tomas Hyman MD [address] [facility] [address] [place] [address] PCP - General Family Medicine 12/31/13 05/09/18 Isidro Heredia MD Rheumatology 02/09/11 documented as of this encounter
--- OUTSIDE RECORDS SUMMARY | 2024-05-10 18:48 | XMS_ITS | Encounter Summary ---
Author Organization [facility] Address [address] [facility] [place] [address] Care Team Providers Care Mergers And Acquisitions Consultant Name Role Phone Isidro Heredia MD Unavailable [phone] Tomas Hyman MD Primary Care Provider [phone] Reason for Visit * Treatment (Routine) - Closed Specialty Diagnoses / Procedures Referred By Lawrence shah Referred To Contact Infusion Therapy Nurse Diagnoses Rheumatoid arthritis(714.0) (HCC) Rheumatoid arthritis without rheumatoid factor, multiple sites (HCC) Procedures WA INFLIXIMAB INJECTION WA INJECTION TOCILIZUMAB 1 MG Isidro Heredia MD [address] [place] [address] [address] Referral ID Status Reason Start Date Expiration Date Visits Re quested Visits Authorized [id number] Closed 01/07/2015 01/08/2016 1 12 Encounter Details Date Type Department Care Team (Late st Contact Info) Description 06/14/2015 3:00 PM SCALE TANK OPERATOR - 06/14/2015 11:59 PM SCALE TANK OPERATOR Hospital Encounter [facility] Medical [facility] - Rheumatology [address] [place] [address] Isidro Heredia MD [address] [place] [address] Discharge Disposition: Home or Self [...] Comments Blood Pressure 137/84 06/14/2015 3:17 PM SCALE TANK OPERATOR Pulse 98 06/14/2015 3:17 PM SCALE TANK OPERATOR Temperature 36.9 ??C (98.4 ??F) 06/14/2015 3:17 PM CS T Respiratory Rate 16 06/14/2015 3:17 PM SCALE TANK OPERATOR Oxygen Saturation - - Inhaled Oxygen Concentration - - Weight - - Height - - Body Mass Index - - documented in this encounter Discharge Instructions * Discharge Instructions* Carlos Foreman RN - 06/14/2015 3:18 PM SCALE TANK OPERATOR [place] Rheumatology Post Infusion instructions You have [...] through Sunday 9-5 call the office at [phone] After hours or on the weekend call the exchange at [phone] If you have had lab work done [...] as your provider. Carlos Foreman RN E TANK OPERATOR documented in this encounter Medications at Time of Discharge Medication Sig Dispensed Refills Start Date End Date Tiptefmgtpz-Shszcqtao-F it C-Mn (GLUCOSAMINE CHONDR 1500 COMPLX PO) [...] - 06/14/2015 3:32 PM CST JOSE Deng [id number] 06/14/2015 Diagnosis: Rheumatoid arthritis without rheumatoid factor, [...] Next treatment? 4wk Carlos Foreman RN E TANK OPERATOR documented in this encounter Plan of Treatment Upcoming Encounters Date Type Department Care Team (Late st Contact Info) Description 06/03/2024 1:00 PM SCALE TANK OPERATOR Appointment [facility] - Rheumatology [address] [place] [address] 06/03/2024 2:00 PM SCALE TANK OPERATOR Office Visit [facility] - Rheumatology [address] [place] [address] Gloria Smith MD [address] [place] [phone] documented as of this encounter Visit [...] 24hrs RT $ Given 06/14/2015 3:25 PM SCALE TANK OPERATOR 800 mg 140 mL/hr documented in this encounter Care Teams Mergers And Acquisitions Consultant Relationship Specialty Start Date End Date Tomas Hyman MD [address] [facility] [address] [place] [address] PCP - General Family Medicine 12/31/13 05/09/18 Isidro Heredia MD Rheumatology 02/09/11 documented as of this encounter
--- OUTSIDE RECORDS SUMMARY | 2024-05-10 18:48 | XMS_ITS | Encounter Summary ---
Author Organization [facility] Address [address] [place] [address] Care Team Providers Care Jail Manager Name Role Phone Isidro Heredia MD Unavailable [phone] Tomas Hyman MD Primary Care Provider [phone] Reason for Visit * Reason Comments Follow-up RA * Evaluate & Treat (Routine) - Closed Specialty Diagnoses / Procedures Referred By Lawrence t Referred To Contact Diagnoses Rheumatoid arthritis(714.0) (HCC) Procedures SC OFFICE/OUTPT VISIT,EST,JULITO I Tomas Hyman MD [address] [place] [address] Isidro Heredia MD [address] [place] [address] Referral ID Status Reason Start Date Expiration Date Visits Re quested Visits Authorized [id number] Closed 09/09/2014 03/08/2015 5 5 Encounter Details Date Type Department Care Team (Late st Contact Info) Description 12/03/2014 2:00 PM CDT Office Visit [facility] Medical [facility] - Rheumatology [address] [place] [address] Isidro Heredia MD [address] [place] [address] Rheumatoid arthritis(714.0) (HCC) (Primary Dx); Chronic [...] PO) Take by mouth once daily. ??? Pmsqgzvkjja-Tczspuawh-Hkg C-Mn (GLUCOSAMINE CHONDR 1500 COMPLX PO) Take [...] st Contact Info) Description 06/03/2024 1:00 PM RESOURCING CONSULTANT Appointment [facility] - Rheumatology [address] [place] [address] 06/03/2024 2:00 PM RESOURCING CONSULTANT Office Visit [facility] - Rheumatology [address] [place] [address] Gloria Smith MD [address] [place] [address] [phone] documented as of this encounter Visit Diagnoses Diagnosis Rheumatoid arthritis(714.0) ([facility])- Primary Rheumatoid arthritis Chronic pain syndrome documented in this encounter Care Teams Jail Manager Relationship Specialty Start Date End Date Tomas Hyman MD [address] [place] [address] PCP - General Family Medicine 12/31/13 05/09/18 Isidro Heredia MD Rheumatology 02/09/11 documented as of this encounter
--- OUTSIDE RECORDS SUMMARY | 2024-05-10 18:48 | XMS_ITS | Encounter Summary ---
Author Organization [facility] Address [address] [place] [address] Care Team Providers Care Geomagnetist Name Role Phone Isidro Heredia MD Unavailable [phone] Tomas Hyman MD Primary Care Provider [phone] Reason for Visit * Reason Comments Rheumatoid Arthritis * Evaluate & Treat (Routine) - Closed Specialty Diagnoses / Procedures Referred By Lawrence t Referred To Contact Diagnoses Rheumatoid arthritis(714.0) ([facility]) Procedures NM OFFICE/OUTPT VISIT,EST,JULITO I Tomas Hyman MD [address] [place] [address] Isidro Heredia MD [address] [place] [address] Referral ID Status Reason Start Date Expiration Date Visits Re quested Visits Authorized [id number] Closed 09/09/2014 03/08/2015 5 5 Encounter Details Date Type Department Care Team (Late st Contact Info) Description 03/04/2015 2:45 PM ELECTRONICS ENGINEER Office Visit [facility] Medical [facility] - Rheumatology [address] [place] [address] Isidro Heredia MD [address] [place] [address] Rheumatoid arthritis(714.0) (HCC) (Primary Dx); Chronic [...] Comments Blood Pressure 133/88 03/04/2015 2:05 PM ELECTRONICS ENGINEER Pulse 103 03/04/2015 2:05 PM ELECTRONICS ENGINEER Temperature - - Respiratory Rate - - Oxygen Saturation - - Inhaled Oxygen Concentration - - Weight 116.1 kg (256 lb) 03/04/2015 2:05 PM ELECTRONICS ENGINEER Height - - Body Mass Index 36.73 02/04/2015 2:14 PM CDT documented in this encounter Progress Notes * Yamileth Rodríguez MA - 03/08/2015 12:08 PM CSTQuick Note: Message sent via my chart regarding lab results TRONICS ENGINEER * Isidro Heredia MD - 03/08/2015 7:26 AM CSTQuick Note: lfts inc sgot and sgpt hold mtx Chol high 262 Trig high 461 meron TRONICS ENGINEER * Isidro Heredia MD - 03/04/2015 3:48 [...] PO) Take by mouth once daily. ??? Jvbinsvruct-Gljtdmurd-Moo C-Mn (GLUCOSAMINE CHONDR 1500 COMPLX PO) Take [...] Follow up in office in 4 weeks TRONICS ENGINEER documented in this encounter Plan of Treatment Upcoming Encounters Date Type Department Care Team (Late st Contact Info) Description 06/03/2024 1:00 PM ELECTRONICS ENGINEER Appointment [facility] - Rheumatology [address] [place] [address] 06/03/2024 2:00 PM ELECTRONICS ENGINEER Office Visit [facility] - Rheumatology [address] [place] [address] Gloria Smith MD [address] [place] [address] [phone] documented as of this encounter Procedures Procedure Name Priority Date/Time Associated Diagnosis Comments LIPID PROFILE W TCHOL/HDL Routine 03/04/2015 2:00 PM ELECTRONICS ENGINEER Rheumatoid arthritis(714.0) ([facility]) ERYTHROCYTE SEDIMENTATION RATE Routine 03/04/2015 2:00 PM ELECTRONICS ENGINEER Rheumatoid arthritis(714.0) ([facility]) CBC W AUTO DIFFERENTIAL Routine 03/04/2015 2:00 PM ELECTRONICS ENGINEER Rheumatoid arthritis(714.0) ([facility]) COMPREHENSIVE METABOLIC PANEL Routine 03/04/2015 2:00 PM ELECTRONICS ENGINEER Rheumatoid arthritis(714.0) ([facility]) documented in this encounter Results * (ABNORMAL) LIPID PROFILE W TCHOL/HDL (PO REF LAB) (03/04/2015 2:00 PM ELECTRONICS ENGINEER) Cholesterol 262(H) <200 mg/dL [facility] INSURANCE BILL [...] ordering a Direct LDL. LDL/HDL RATIO BLOOD ([facility]) ?<5.0 Unable to calculate LDL due to elevated Triglycerides, please consider ordering a Direct LDL. Cholesterol/HDL Ratio 5.3(H) <4.5 [facility] INSURANCE BILL Blood specimen (specimen) BLOOD SPECIMEN / Unknown 03/04/2015 2:00 PM ELECTRONICS ENGINEER 03/04/2015 6:11 PM ELECTRONICS ENGINEER Narrative Resulting Agency Comment [facility] [address] ??[place] [phone] Isidro Heredia MD LAB - CHEMISTRY ORD ERABLES [facility] INSURANCE BILL * SED RATE WESTERGREN (03/04/2015 2:00 PM ELECTRONICS ENGINEER) Erythrocyte Sedimentation Rate Westergren 7 0 - 20 mm/hr [facility] INSURANCE BILL Blood specimen (specimen) BLOOD SPECIMEN / Unknown 03/04/2015 2:00 PM ELECTRONICS ENGINEER 03/04/2015 6:11 PM ELECTRONICS ENGINEER Narrative Resulting Agency Comment [facility] [address] ??[place] [phone] Isidro Heredia MD LAB - HEMATOLOGY OR DERABLES [facility] INSURANCE BILL * (ABNORMAL) COMPREHENSIVE METABOLIC PANEL (03/04/2015 2:00 PM ELECTRONICS ENGINEER) Glucose 106 74 - 106 mg/dL [facility] [...] BLOOD SPECIMEN / Unknown 03/04/2015 2:00 PM ELECTRONICS ENGINEER 03/04/2015 6:11 PM ELECTRONICS ENGINEER Narrative Resulting Agency Comment [facility] [address] [facility] ??[place] [phone] Isidro Heredia MD LAB - CHEMISTRY ORD ERABLES [facility] INSURANCE BILL * CBC W AUTO DIFFERENTIAL (03/04/2015 2:00 PM ELECTRONICS ENGINEER) WBC 9.2 4.4 - 10.7 x10E9/L [facility] [...] BLOOD SPECIMEN / Unknown 03/04/2015 2:00 PM ELECTRONICS ENGINEER 03/04/2015 6:11 PM ELECTRONICS ENGINEER Narrative Resulting Agency Comment [facility] [address] [facility] ??[facility] [phone] Isidro Heredia MD LAB - HEMATOLOGY OR DERABLES [facility] INSURANCE BILL documented in this encounter Visit Diagnoses Diagnosis Rheumatoid arthritis(714.0) (HCC)- Primary Rheumatoid arthritis Chronic pain syndrome Right lumbar radiculopathy Thoracic or lumbosacral neuritis or radiculitis, unspecified documented in this encounter Care Teams Geomagnetist Relationship Specialty Start Date End Date Tomas Hyman MD [address] [facility] [address] [place] [address] PCP - General Family Medicine 12/31/13 05/09/18 Isidro Heredia MD Rheumatology 02/09/11 documented as of this encounter
--- OUTSIDE RECORDS SUMMARY | 2024-05-10 18:48 | XMS_ITS | Encounter Summary ---
Author Organization [facility] Address [address] [place] [address] Care Team Providers Care Enrollment Management Coordinator Name Role Phone Isidro Heredia MD Unavailable Tomas Hyman MD Primary Care Provider [phone] Reason for Visit * Reason Onset Date Comments Forms 07/27/2014 Encounter Details Date Type Department Care Team (Late st Contact Info) Description 07/27/2014 Telephone [facility] - Family Medicine [address] [place] [address] [phone] Isidro Heredia MD [address] [place] [address] Forms Social History Tobacco Use Types [...] for me Thanks! 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 and his work is asking him about it documented in this encounter Plan of Treatment Upcoming Encounters Date Type Department Care Team (Late st Contact Info) Description 06/03/2024 1:00 PM OUTPATIENT PHYSICAL THERAPIST ASSISTANT Appointment [facility] - Rheumatology [address] [place] [address] 06/03/2024 2:00 PM OUTPATIENT PHYSICAL THERAPIST ASSISTANT Office Visit [facility] - Rheumatology [address] [place] [address] Gloria Smith MD [address] [place] [address] [phone] documented as of this encounter Visit Diagnoses Not on filedocumented in this encounter Care Teams Enrollment Management Coordinator Relationship Specialty Start Date End Date Tomas Hyman MD [address] [facility] [address] [place] [address] PCP - General Family Medicine 12/31/13 05/09/18 Isidro Heredia MD Rheumatology 02/09/11 documented as of this encounter
--- OUTSIDE RECORDS SUMMARY | 2024-05-10 18:48 | XMS_ITS | Encounter Summary ---
Author Organization [facility] Address [address] [place] [address] Care Team Providers Care Train Examiner Name Role Phone Hitesh Solis MD Unavailable [phone] Tomas Hyman MD Primary Care Provider [phone] Reason for Visit * Reason Comments Rheumatoid Arthritis Shoulder Pain right, would liek co rtisone injection * Evaluate & Treat (Routine) - Closed Specialty Diagnoses / Procedures Referred By Contac t Referred To Contact Diagnoses Rheumatoid arthritis(714.0) (HCC) Procedures MD OFFICE/OUTPT VISIT,EST,Tomas Gupta MD [address] [place] [address] Hitesh Solis MD [address] [place] [address] Referral ID Status Reason Start Date Expiration Date Visits Re quested Visits Authorized [id number] Closed 09/09/2014 03/08/2015 5 5 Encounter Details Date Type Department Care Team (Late st Contact Info) Description 01/07/2015 3:00 PM CDT Office Visit [facility] [employer] [facility] - Rheumatology [address] [place] [address] Hitesh Solis MD [address] [place] [address] Rheumatoid arthritis(714.0) (HCC) (Primary Dx); [...] PO) Take by mouth once daily. ??? Zsbixunfrkm-Tllfqihfh-Rev C-Mn (GLUCOSAMINE CHONDR 1500 COMPLX PO) Take [...] METABOLIC PANEL ??? SED RATE WESTERGREN ??? MD DRAIN/INJECT LARGE JOINT/BURSA ??? oxyCODONE-acetaminophen (PERCOCET) 5-325 [...] st Contact Info) Description 06/03/2024 1:00 PM INTELLIGENCE GROUP SUPERVISOR Appointment [facility] - Rheumatology [address] [place] [address] [phone] 06/03/2024 2:00 PM INTELLIGENCE GROUP SUPERVISOR Office Visit [facility] - Rheumatology [address] [place] [address] Gloria Smith MD [address] [place] [address] [phone] documented as of this encounter Procedures Procedure Name Priority Date/Time Associated Diagnosis Comments ERYTHROCYTE SEDIMENTATION RATE Routine 01/07/2015 3:40 PM CDT Rheumatoid arthritis(714.0) ([facility]) CBC W AUTO DIFFERENTIAL Routine 01/07/2015 3:40 PM CDT Rheumatoid arthritis(714.0) ([facility]) COMPREHENSIVE METABOLIC PANEL Routine 01/07/2015 3:40 PM CDT Rheumatoid arthritis(714.0) ([facility]) documented in this encounter Results * SED RATE WESTERGREN (01/07/2015 3:40 PM CDT) Erythrocyte Sedimentation Rate Westergren 4 0 - 20 mm/hr [facility] INSURANCE BILL Blood specimen (specimen) BLOOD SPECIMEN / Unknown 01/07/2015 3:40 PM CDT 01/07/2015 6:19 PM CDT Narrative Resulting Agency Comment [facility] [address] [facility] ??[place] [id number] Hitesh Solis MD LAB - HEMATOLOGY OR [...] 6:19 PM CDT Narrative Resulting Agency Comment [facility] [address] [facility] ??[facility] [phone] Hitesh Solis MD LAB - CHEMISTRY ORD [...] 6:19 PM CDT Narrative Resulting Agency Comment [facility] [address] [facility] ??[place]EN[place] [phone] Hitesh Solis MD LAB - HEMATOLOGY OR DERABLES [facility] INSURANCE BILL documented in this encounter Visit Diagnoses Diagnosis Rheumatoid arthritis(714.0) ([facility])- Primary Rheumatoid arthritis Chronic pain syndrome Right lumbar radiculopathy Thoracic or lumbosacral neuritis or radiculitis, unspecified Triceps tendonitis Other enthesopathy of elbow region documented in this encounter Administered Medications Administered Medications Medication Order MAR Action Action Date Dose Rate Site Triamcinolone Acetonide Intraarticular Given 01/07/2015 2 mL See comments documented in this encounter Care Teams Train Examiner Relationship Specialty Start Date End Date Tomas Hyman MD [address] [facility] [address] [place] [address] PCP - General Family Medicine 12/31/13 05/09/18 Hitesh Solis MD Rheumatology 02/09/11 documented as of this encounter
--- OUTSIDE RECORDS SUMMARY | 2024-05-10 18:48 | XMS_ITS | Encounter Summary ---
Author Organization [facility] Address [address] [facility] [place] [address] Care Team Providers Care Straight Edger Name Role Phone Isidro Heredia MD Unavailable [phone] Tomas Hyman MD Primary Care Provider [phone] Reason for Visit * Reason Comments Refill Request Encounter Details Date Type Department Care Team (Late Contact Info) Description 09/12/2014 Refill [facility] - Rheumatology [address] [place] [address] Isidro Heredia MD [address] [place] [address] Refill Request Social History Tobacco Use [...] (Late Contact Info) Description 06/03/2024 1:00 PM FIRER TUNNEL KILN Appointment [facility] - Rheumatology [address] [place] [address] 06/03/2024 2:00 PM FIRER TUNNEL KILN Office Visit [facility] Rheumatology [address] [place] [address] Gloria Smith MD [address] [place], [place] [address] [phone] documented as of this encounter Visit Diagnoses Not on filedocumented in this encounter Care Teams Straight Edger Relationship Specialty Start Date End Date Tomas Hyman MD [address] [place] [address] PCP - General Family Medicine 12/31/13 05/09/18 Isidro Heredia MD Rheumatology 02/09/11 documented as of this encounter
--- OUTSIDE RECORDS SUMMARY | 2024-05-10 18:48 | XMS_ITS | Encounter Summary ---
Author Organization [facility] Address [address] [facility] [place] [address] Care Team Providers Care Kiln Feeder Name Role Phone Isidro Heredia MD Unavailable Tomas Hyman MD Primary Care Provider Reason for Visit * Reason Comments Rheumatoid Arthritis * Evaluate & Treat (Routine) - Closed Specialty Diagnoses / Procedures Referred By Lawrence shah Referred To Contact Diagnoses Rheumatoid arthritis with rheumatoid factor, unspecified (HCC) Procedures OR OFFICE VISIT DURING HOURS Tomas Hyman MD [address] [place] [address] Isidro Heredia MD [address] [place] [address] Referral ID Status Reason Start Date Expiration Date Visits Re quested Visits Authorized [id number] Closed 02/24/2015 02/24/2016 6 6 Encounter Details Date Type Department Care Team (Late st Contact Info) Description 09/13/2015 4:45 PM CDT Office Visit [facility] - Rheumatology [address] [place] [address] Isidro Heredia MD [address] [place] [address] Abnormal LFTs (Primary Dx); Rheumatoid arthritis [...] 1 Tab by mouth once daily ??? Buwodssinvj-Zzrnfectt-Blw C-Mn (GLUCOSAMINE CHONDR 1500 COMPLX PO) Take [...] st Contact Info) Description 06/03/2024 1:00 PM TAMPING MACHINE OPERATOR Appointment [facility] - Rheumatology [address] [place] [address] 06/03/2024 2:00 PM TAMPING MACHINE OPERATOR Office Visit [facility] Medical [facility] - Rheumatology [address] [place] [address] Gloria Smith MD [address] [place] [phone] documented as of this encounter Visit Diagnoses [...] documented in this encounter Care Teams Kiln Feeder Relationship Specialty Start Date End Date Tomas Hyman MD [address] [facility] [address] [place] [address] PCP - General Family Medicine 12/31/13 05/09/18 Isidro Heredia MD Rheumatology 02/09/11 documented as of this encounter
--- OUTSIDE RECORDS SUMMARY | 2024-05-10 18:48 | XMS_ITS | Encounter Summary ---
Author Organization [facility] Address [address] [facility] [place] [address] Care Team Providers Care Unemployment Inspector Name Role Phone Isidro Heredia MD Unavailable [phone] Tomas Hyman MD Primary Care Provider [phone] Encounter Details Date Type Department Care Team (Late st Contact Info) Description 06/14/2015 Orders Only [facility] Medical [facility] - Rheumatology [address] [place] [address] [phone] Isidro Heredia MD [address] [place] [address] Rheumatoid arthritis of multiple sites with [...] AM CSTQuick Note: Patient notified via mychart. MAN * Isidro Heredia MD - 06/20/2015 9:14 PM CSTQuick Note: Chol sl inc 202 mtx [place] meron MAN documented in this encounter Plan of Treatment Upcoming Encounters Date Type Department Care Team (Late st Contact Info) Description 06/03/2024 1:00 PM COKEMAN Appointment [facility] - Rheumatology [address] [place] [address] [phone] 06/03/2024 2:00 PM COKEMAN Office Visit [facility] - Rheumatology [address] [place] [address] Gloria Smith MD [address] [place] [phone] documented as of this encounter Procedures Procedure Name Priority Date/Time Associated Diagnosis Comments LIPID PROFILE W TCHOL/HDL Routine 06/14/2015 3:00 PM COKEMAN Rheumatoid arthritis of multiple sites with negative rheumatoid factor (HCC) ERYTHROCYTE SEDIMENTATION RATE Routine 06/14/2015 3:00 PM COKEMAN Rheumatoid arthritis of multiple sites with negative rheumatoid factor (HCC) CBC W AUTO DIFFERENTIAL Routine 06/14/2015 3:00 PM COKEMAN Rheumatoid arthritis of multiple sites with negative rheumatoid factor (HCC) COMPREHENSIVE METABOLIC PANEL Routine 06/14/2015 3:00 PM COKEMAN Rheumatoid arthritis of multiple sites with negative rheumatoid factor (HCC) documented in this encounter Results * (ABNORMAL) LIPID PROFILE W TCHOL/HDL (PO REF LAB) (06/14/2015 3:00 PM COKEMAN) Cholesterol 202(H) <200 mg/dL [facility] INSURANCE BILL Triglycerides 321(H) <150 mg/dL [facility] INSURANCE BILL HDL Cholesterol 52 >40 mg/dL [facility] INSURANCE BILL VLDL Calculated 64(H) <=30 mg/dL [facility] INSURANCE BILL LDL Calculated 86 <130 mg/dL [facility] INSURANCE BILL Comment:LDL/HDL RATIO BLOOD ([facility]) 1.7 <5.0 Cholesterol/HDL Ratio 3.9 <4.5 [facility] INSURANCE BILL Blood specimen (specimen) BLOOD SPECIMEN / Unknown 06/14/2015 3:00 PM COKEMAN 06/14/2015 7:27 PM COKEMAN Narrative Resulting Agency Comment [facility] [address] ??[place] [phone] Isidro Heredia MD LAB - CHEMISTRY ORD ERABLES [facility] INSURANCE BILL * SED RATE WESTERGREN (06/14/2015 3:00 PM COKEMAN) Erythrocyte Sedimentation Rate Westergren 4 0 - 20 mm/hr [facility] INSURANCE BILL Blood specimen (specimen) BLOOD SPECIMEN / Unknown 06/14/2015 3:00 PM COKEMAN 06/14/2015 7:27 PM COKEMAN Narrative Resulting Agency Comment [facility] [address] ??[place]iy[place] P[place] [phone] Isidro Heredia MD LAB - HEMATOLOGY OR DERABLES [facility] INSURANCE BILL * (ABNORMAL) COMPREHENSIVE METABOLIC PANEL (06/14/2015 3:00 PM COKEMAN) Glucose 110(H) 74 - 106 mg/dL [facility] [...] BLOOD SPECIMEN / Unknown 06/14/2015 3:00 PM COKEMAN 06/14/2015 7:27 PM COKEMAN Narrative Resulting Agency Comment [facility] [address] [facility] ??[facility] [id number] Isidro Heredia MD LAB - CHEMISTRY ORD ERABLES [facility] INSURANCE BILL * (ABNORMAL) CBC W AUTO DIFFERENTIAL (06/14/2015 3:00 PM COKEMAN) WBC 7.5 4.4 - 10.7 x10E9/L [facility] [...] BLOOD SPECIMEN / Unknown 06/14/2015 3:00 PM COKEMAN 06/14/2015 7:27 PM COKEMAN Narrative Resulting Agency Comment [facility] [address] [facility] ??[place] [phone] Isidro Heredia MD LAB - HEMATOLOGY OR DERABLES [facility] INSURANCE BILL documented in this encounter Visit Diagnoses Diagnosis Rheumatoid arthritis of multiple sites with negative rheumatoid factor (HCC)- Primary documented in this encounter Care Teams Unemployment Inspector Relationship Specialty Start Date End Date Tomas Hyman MD [address] [place] [address] PCP - General Family Medicine 12/31/13 05/09/18 Isidro Heredia MD Rheumatology 02/09/11 documented as of this encounter
--- OUTSIDE RECORDS SUMMARY | 2024-05-10 18:48 | XMS_ITS | Encounter Summary ---
Author Organization [facility] Address [address] [facility] [place] [address] Care Team Providers Care Aquatic Director Name Role Phone Isidro Heredia MD Unavailable [phone] Tomas Hyman MD Primary Care Provider [phone] Reason for Visit * Reason Onset Date Comments Appointment 04/20/2015 Encounter Details Date Type Department Care Team (Late st Contact Info) Description 04/20/2015 Telephone [facility] Medical [facility] - Rheumatology [address] [place] [address] Isidro Heredia MD [address] [place] [address] Appointment Social History Tobacco Use Types [...] - 05/21/2015 7:47 AM CST Infusion scheduled. OPHANE WORKER * Telephone Encounter - Erika Julien - 05/07/2015 1:12 PM CST Pt is calling back for appt OPHANE WORKER * Telephone Encounter - Patricia Bonds - 04/20/2015 2:28 PM CST Pt calling to make an appointment for an infusion. The pt states that he would like to see Dr. Heredia at the same time. Please call. OPHANE WORKER documented in this encounter Plan of Treatment Upcoming Encounters Date Type Department Care Team (Late st Contact Info) Description 06/03/2024 1:00 PM CELLOPHANE WORKER Appointment [facility] - Rheumatology [address] [place] [address] 06/03/2024 2:00 PM CELLOPHANE WORKER Office Visit [facility] - Rheumatology [address] [place] [address] Gloria Smith MD [address] [place] [phone] documented as of this encounter Visit Diagnoses Not on filedocumented in this encounter Care Teams Aquatic Director Relationship Specialty Start Date End Date Tomas Hyman MD [address] [place] [address] PCP - General Family Medicine 12/31/13 05/09/18 Isidro Heredia MD Rheumatology 02/09/11 documented as of this encounter
--- OUTSIDE RECORDS SUMMARY | 2024-05-10 18:48 | XMS_ITS | Encounter Summary ---
Author Organization [facility] Address [address] [facility] [place] [address] Care Team Providers Care Ticket Clerk Name Role Phone Isidro Heredia MD Unavailable [phone] Tomas Hyman MD Primary Care Provider [phone] Reason for Visit * Reason Comments Refill Request Encounter Details Date Type Department Care Team (Late Contact Info) Description 07/01/2015 Refill [facility] - Rheumatology [address] [place] [address] Isidro Heredia MD [address] [place] [address] Refill Request Social History Tobacco Use [...] (Late Contact Info) Description 06/03/2024 1:00 PM LIP CUTTER AND SCORER Appointment [facility] - Rheumatology [address] [place] [address] 06/03/2024 2:00 PM LIP CUTTER AND SCORER Office Visit [facility] Rheumatology [address] [place] [address] Gloria Smith MD [address] [place], [place] [address] [address] documented as of this encounter Visit Diagnoses Not on filedocumented in this encounter Care Teams Ticket Clerk Relationship Specialty Start Date End Date Tomas Hyman MD [address] [place] [address] PCP - General Family Medicine 12/31/13 05/09/18 Isidro Heredia MD Rheumatology 02/09/11 documented as of this encounter
--- OUTSIDE RECORDS SUMMARY | 2024-05-10 18:48 | XMS_ITS | Encounter Summary ---
Author Organization [facility] Address [address] [facility] [place] [address] Care Team Providers Care Fish Salter Name Role Phone Isidro Heredia MD Unavailable Tomas Hyman MD Primary Care Provider [phone] Reason for Visit * Reason Comments Rheumatoid Arthritis * Evaluate & Treat (Routine) - Closed Specialty Diagnoses / Procedures Referred By Lawrence t Referred To Contact Diagnoses Rheumatoid arthritis(714.0) ([facility]) Procedures [place] OFFICE/OUTPT VISIT,EST,JULITO I Tomas Hyman MD [address] [place] [address] Isidro Heredia MD [address] [place] [address] Referral ID Status Reason Start Date Expiration Date Visits Re quested Visits Authorized [id number] Closed 09/09/2014 03/08/2015 5 5 Encounter Details Date Type Department Care Team (Late st Contact Info) Description 02/04/2015 2:15 PM CDT Office Visit [facility] Medical [facility] - Rheumatology [address] [place] [address] Isidro Heredia MD [address] [place] [address] Rheumatoid arthritis(714.0) (HCC) (Primary Dx); Chronic [...] in this encounter Progress Notes * Isidro Hreedia MD - 02/04/2015 3:07 PM CDT Subjective: [...] PO) Take by mouth once daily. ??? Nrkeugobuah-Qjnkckegc-Hgb C-Mn (GLUCOSAMINE CHONDR 1500 COMPLX PO) Take [...] Contact Info) Description 06/03/2024 1:00 PM FISHERIES MANAGEMENT BIOLOGIST Appointment [facility] - Rheumatology [address] [place] [address] [phone] 06/03/2024 2:00 PM FISHERIES MANAGEMENT BIOLOGIST Office Visit [facility] - Rheumatology [address] [place] [address] [phone] Gloria Smith MD [address] [place] [address] [phone] documented as of this encounter Visit Diagnoses Diagnosis Rheumatoid arthritis(714.0) ([facility])- Primary Rheumatoid arthritis Chronic pain syndrome documented in this encounter Care Teams Fish Salter Relationship Specialty Start Date End Date Tomas Hyman MD [address] [facility] [address] [place] [address] PCP - General Family Medicine 12/31/13 05/09/18 Isidro Heredia MD Rheumatology 02/09/11 documented as of this encounter
--- OUTSIDE RECORDS SUMMARY | 2024-05-10 18:48 | XMS_ITS | Encounter Summary ---
Author Organization [facility] Address [address] [facility] [place] [address] Care Team Providers Care Scow Derrick Operator Name Role Phone Isidro Heredia MD Unavailable [phone] Tomas Hyman MD Primary Care Provider [phone] Reason for Visit * Reason Comments Refill Request Encounter Details Date Type Department Care Team (Late Contact Info) Description 04/26/2015 Refill [facility] - Rheumatology [address] [place] [address] Isidro Heredia MD [address] [place] [address] Refill Request Social History Tobacco Use [...] Contact Info) Description 06/03/2024 1:00 PM EQUIPMENT SERVICE TECHNICIAN Appointment [facility] - Rheumatology [address] [place] [address] 06/03/2024 2:00 PM EQUIPMENT SERVICE TECHNICIAN Office Visit [facility] Rheumatology [address] [place] [address] Gloria Smith MD [address] [place], [place] [address], [place] [address] documented as of this encounter Visit Diagnoses Not on filedocumented in this encounter Care Teams Scow Derrick Operator Relationship Specialty Start Date End Date Tomas Hyman MD [address] [place] [address] PCP - General Family Medicine 12/31/13 05/09/18 Isidro Heredia MD Rheumatology 02/09/11 documented as of this encounter
--- OUTSIDE RECORDS SUMMARY | 2024-05-10 18:48 | XMS_ITS | Encounter Summary ---
Author Organization [facility] Address [address] [facility] [place] [address] Care Team Providers Care Rn Training Name Role Phone Isidro Heredia MD Unavailable Tomas Hyman MD Primary Care Provider [phone] Reason for Visit * Treatment (Routine) - Closed Specialty Diagnoses / Procedures Referred By Lawrence shah Referred To Contact Infusion Therapy Nurse Diagnoses Rheumatoid arthritis(714.0) ([facility]) Procedures [place] INJECTION TOCILIZUMAB 1 MG Isidro Heredia MD [address] [place] [address] [address] Referral ID Status Reason Start Date Expiration Date Visits Re quested Visits Authorized [id number] Closed 09/29/2014 04/29/2015 1 6 Encounter Details Date Type Department Care Team (Late st Contact Info) Description 04/07/2015 2:51 PM PLATFORM SOFTWARE ENGINEER - 04/07/2015 11:59 PM PLATFORM SOFTWARE ENGINEER Hospital Encounter [facility] Medical [facility] - Rheumatology [address] [place] [address] Isidro Heredia MD [address] [place] [address] Discharge Disposition: Home or Self [...] Comments Blood Pressure 120/88 04/07/2015 3:10 PM PLATFORM SOFTWARE ENGINEER Pulse 108 04/07/2015 3:10 PM PLATFORM SOFTWARE ENGINEER Temperature 37 ??C (98.6 ??F) 04/07/2015 3:10 PM PLATFORM SOFTWARE ENGINEER Respiratory Rate 16 04/07/2015 3:10 PM PLATFORM SOFTWARE ENGINEER Oxygen Saturation - - Inhaled Oxygen Concentration - - Weight 117 kg (258 lb) 04/07/2015 3:10 PM PLATFORM SOFTWARE ENGINEER Height 177.8 cm (5' 10 ) 04/07/2015 3:10 PM PLATFORM SOFTWARE ENGINEER Body Mass Index 37.02 04/07/2015 3:10 PM PLATFORM SOFTWARE ENGINEER documented in this encounter Discharge Instructions * Discharge Instructions* Jody Sahu RN - 04/07/2015 3:40 PM PLATFORM SOFTWARE ENGINEER [place] Rheumatology Post Infusion instructions You have [...] Sunday through 01-02 call the office at [phone] After hours or on the weekend call the exchange at [phone] If you have had lab work done [...] Center as your provider. Jody Sahu RN FORM SOFTWARE ENGINEER documented in this encounter Medications at Time of Discharge Medication Sig Dispensed Refills Start Date End Date Pkqhucdrqhk-Ytzumhlvw-G it C-Mn (GLUCOSAMINE CHONDR 1500 COMPLX PO) [...] 04/07/2015 3:42 PM CST JOSE Chalino Deng [id number] 04/07/2015 Diagnosis: Rheumatoid arthritis, unspecified [M06.9]. Pt denies symptoms of infection or antibiotic use, no open wounds, or recent surgery, or plans for surgery in the next couple of weeks. Pt is aware that we use the 0-10 pain scale to assess discomfort. 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 manager helpdesk pt signs consent for treatment for this [...] Next treatment? 4 weeks Jody Sahu RN FORM SOFTWARE ENGINEER documented in this encounter Plan of Treatment Upcoming Encounters Date Type Department Care Team (Late st Contact Info) Description 06/03/2024 1:00 PM PLATFORM SOFTWARE ENGINEER Appointment [facility] - Rheumatology [address] [place] [address] 06/03/2024 2:00 PM PLATFORM SOFTWARE ENGINEER Office Visit [facility] - Rheumatology [address] [place] [address] Gloria Smith MD [address] [place] [address] [phone] documented as of this encounter Visit Diagnoses [...] 24hrs RT $ Given 04/07/2015 3:30 PM PLATFORM SOFTWARE ENGINEER 800 mg 140 mL/hr documented in this encounter Care Teams Rn Training Relationship Specialty Start Date End Date Tomas Hyman MD [address] [facility] [address] [place] [address] PCP - General Family Medicine 12/31/13 05/09/18 Isidro Heredia MD Rheumatology 02/09/11 documented as of this encounter
--- OUTSIDE RECORDS SUMMARY | 2024-05-10 18:48 | XMS_ITS | Encounter Summary ---
Author Organization [facility] Address [address] [facility] [place] [address] Care Team Providers Care Industrial Boilermaker Name Role Phone Isidro Heredia MD Unavailable [phone] Tomas Hyman MD Primary Care Provider [phone] Reason for Visit * Treatment (Routine) - Closed Specialty Diagnoses / Procedures Referred By Lawrence shah Referred To Contact Infusion Therapy Nurse Diagnoses Rheumatoid arthritis(714.0) ([facility]) Procedures [place] INJECTION TOCILIZUMAB 1 MG Isidro Heredia MD 58 [place] [address] [address] Referral ID Status Reason Start Date Expiration Date Visits Re quested Visits Authorized [id number] Closed 05/08/2014 10/05/2014 1 6 Encounter Details Date Type Department Care Team (Late st Contact Info) Description 08/12/2014 10:23 AM CDT - 08/12/2014 11:59 PM CDT Hospital Encounter [facility] Medical [facility] - Rheumatology [address] [place] [address] Isidro Heredia MD [address] [place] [address] Discharge Disposition: Home or Self [...] Sierra RN - 08/12/2014 10:44 AM CDT [place] Rheumatology Post Infusion instructions You [...] Sunday through 01-02 call the office at [phone] After hours or on the weekend call the exchange at [phone] If you have had lab work done [...] chosen [facility] as your provider. Manisha Sierra RN documented in this encounter Medications at Time of Discharge Medication Sig Dispensed Refills Start Date End Date Qmiskvncgwl-Gfoakjixb-Zp t C-Mn (GLUCOSAMINE CHONDR 1500 COMPLX PO) [...] - 08/12/2014 10:48 AM CDT JOSE Deng [id number] 08/12/2014 Diagnosis: Rheumatoid arthritis [714.0]. Patient questionnaire [...] Tolerated well? Yes Next treatment? 4 weeks Manihsa D Rigo, RN documented in this encounter Plan of Treatment Upcoming Encounters Date Type Department Care Team (Late st Contact Info) Description 06/03/2024 1:00 PM INTERPRETER FOR THE DEAF Appointment [facility] - Rheumatology [address] [place] [address] [phone] 06/03/2024 2:00 PM INTERPRETER FOR THE DEAF Office Visit [facility] - Rheumatology [address] [place] [address] Gloria Smith MD [address] [place] [address] [phone] documented as of this encounter Visit Diagnoses Diagnosis Rheumatoid arthritis(714.0) ([facility]) Rheumatoid arthritis documented in this encounter Administered Medications Inactive Administered Medications - up to 3 most recent administrations Medication Order MAR Action Action Date Dose Rate Site Tocilizumab 800 mg in 0.9% NaCl IVPB 800 mg, at 140 mL/hr, Intravenous, ONCE, 1 dose, On Sun08/12/14 at 1030, 2 vials used of Actemra 400MG [facility] 16427-711-94 with 0 WASTE $ Given 08/12/2014 10:47 AM CDT 800 mg 140 mL/hr documented in this encounter Care Teams Industrial Boilermaker Relationship Specialty Start Date End Date Tomas Hyman MD [address] [facility] [address] [place] [address] PCP - General Family Medicine 12/31/13 05/09/18 Isidro Heredia MD Rheumatology 02/09/11 documented as of this encounter
--- OUTSIDE RECORDS SUMMARY | 2024-05-10 18:48 | XMS_ITS | Encounter Summary ---
Author Organization [facility] Address [address] [facility] [place] [address] Care Team Providers Care Numerical Control Machine Machinist Name Role Phone Isidro Heredia MD Unavailable Tomas Hyman MD Primary Care Provider [phone] Reason for Visit * Treatment (Routine) - Closed Specialty Diagnoses / Procedures Referred By Lawrence shah Referred To Contact Infusion Therapy Nurse Diagnoses Rheumatoid arthritis(714.0) ([facility]) Procedures [place] INJECTION TOCILIZUMAB 1 MG Isidro Heredia MD [address] [place] [address] [address] Referral ID Status Reason Start Date Expiration Date Visits Re quested Visits Authorized [id number] Closed 09/29/2014 04/29/2015 1 6 Encounter Details Date Type Department Care Team (Late st Contact Info) Description 12/03/2014 1:21 PM CDT - 12/03/2014 11:59 PM CDT Hospital Encounter [facility] Medical [facility] - Rheumatology [address] [place] [address] Isidro Heredia MD [address] [facility] [place] [address] Discharge Disposition: Home or Self [...] Foreman RN - 12/03/2014 2:03 PM CDT [place] Rheumatology Post Infusion instructions [...] through Sunday 9-5 call the office at [phone] After hours or on the weekend call the exchange at [phone] If you have had lab work done [...] Sig Dispensed Refills Start Date End Date Secghpwlctg-Oznqwadgo-H it C-Mn (GLUCOSAMINE CHONDR 1500 COMPLX PO) [...] 12/03/2014 1:59 PM CDT JOSE Chalino Deng [id number] 12/03/2014 Diagnosis: Rheumatoid arthritis(714.0) [714.0]. Patient questionnaire [...] st Contact Info) Description 06/03/2024 1:00 PM EXTERMINATION SUPERVISOR Appointment [facility] - Rheumatology [address] [place] [address] [phone] 06/03/2024 2:00 PM EXTERMINATION SUPERVISOR Office Visit [facility] - Rheumatology [address] [place] [address] Gloria Smith MD [address] [place] [place] [phone] documented as of this encounter Visit Diagnoses [...] r documented in this encounter Care Teams Numerical Control Machine Machinist Relationship Specialty Start Date End Date Tomas Hyman MD [address] [facility] [address] [place] [address] PCP - General Family Medicine 12/31/13 05/09/18 Isidro Heredia MD Rheumatology 02/09/11 documented as of this encounter
--- OUTSIDE RECORDS SUMMARY | 2024-05-10 18:48 | XMS_ITS | Encounter Summary ---
Author Organization [facility] Address [address] [facility] [place] [address] Care Team Providers Care Rivet Hole Machine Operator Name Role Phone Isidro Heredia MD Unavailable [phone] Tomas Hyman MD Primary Care Provider [phone] Reason for Visit * Reason Comments Refill Request Encounter Details Date Type Department Care Team (Late Contact Info) Description 11/25/2014 Refill [facility] - Rheumatology [address] [place] [address] Isidro Heredia MD [address] [place] [address] Refill Request Social History Tobacco Use [...] (Late Contact Info) Description 06/03/2024 1:00 PM GRAZING AIDE Appointment [facility] - Rheumatology [address] [place] [address] 06/03/2024 2:00 PM GRAZING AIDE Office Visit [facility] Rheumatology [address] [place] [address] Gloria Smith MD [address] [place], [place] [address], [place] [address] documented as of this encounter Visit Diagnoses Not on filedocumented in this encounter Care Teams Rivet Hole Machine Operator Relationship Specialty Start Date End Date Tomas Hyman MD [address] [place] [address] PCP - General Family Medicine 12/31/13 05/09/18 Isidro Heredia MD Rheumatology 02/09/11 documented as of this encounter
--- OUTSIDE RECORDS SUMMARY | 2024-05-10 18:48 | XMS_ITS | Encounter Summary ---
Author Organization [facility] Address [address] [facility] [place] [address] Care Team Providers Care Fitness And Wellness Instructor Name Role Phone Isidro Heredia MD Unavailable [phone] Tomas Hyman MD Primary Care Provider [phone] Reason for Visit * Treatment (Routine) - Closed Specialty Diagnoses / Procedures Referred By Lawrence shah Referred To Contact [place] [id number] [address] [facility] Pain Care [address] [place] [address] Referral ID Status Reason Start Date Expiration Date Visits Re quested Visits Authorized [id number] Closed 12/21/2014 06/19/2015 1 6 Encounter Details Date Type Department Care Team (Latest Contact Info) Description 12/21/2014 9:19 AM CDT Hospital Encounter [facility] Health Pain Care [address] [place] [address] [place] [address] [address] Discharge Disposition: Home or Self [...] Sig Dispensed Refills Start Date End Date Uikiwaghnad-Obxvzrbrw-S it C-Mn (GLUCOSAMINE CHONDR 1500 COMPLX PO) [...] Contact Info) Description 06/03/2024 1:00 PM NURSING PROGRAM DIRECTOR Appointment [facility] - Rheumatology [address] [place] [address] [phone] 06/03/2024 2:00 PM NURSING PROGRAM DIRECTOR Office Visit [facility] - Rheumatology [address] [place] [address] [phone] Gloria Smith MD [address] [place] [phone] documented as of this encounter Visit Diagnoses Not on filedocumented in this encounter Care Teams Fitness And Wellness Instructor Relationship Specialty Start Date End Date Tomas Hyman MD [address] [place] [address] [place] [address] PCP - General Family Medicine 12/31/13 05/09/18 Isidro Heredia MD Rheumatology 02/09/11 documented as of this encounter
--- OUTSIDE RECORDS SUMMARY | 2024-05-10 18:48 | XMS_ITS | Encounter Summary ---
Author Organization [facility] Address [address] [place] [place] [address] Care Team Providers Care Trim Machine Adjuster Name Role Phone Isidro Heredia MD Unavailable [phone] Tomas Hyman MD Primary Care Provider [phone] Reason for Visit * Treatment (Routine) - Closed Specialty Diagnoses / Procedures Referred By Lawrence shah Referred To Contact Infusion Therapy Nurse Diagnoses Rheumatoid arthritis(714.0) (HCC) Rheumatoid arthritis without rheumatoid factor, multiple sites (HCC) Procedures CO INFLIXIMAB INJECTION [place] INJECTION TOCILIZUMAB 1 MG Isidro Heredia MD [address] [place] [address] [address] Referral ID Status Reason Start Date Expiration Date Visits Re quested Visits Authorized [id number] Closed 01/07/2015 01/08/2016 1 12 Encounter Details Date Type Department Care Team (Late st Contact Info) Description 05/17/2015 2:40 PM SOLVENT PROCESS EXTRACTOR OPERATOR - 05/17/2015 11:59 PM SOLVENT PROCESS EXTRACTOR OPERATOR Hospital Encounter [facility] Medical [facility] - Rheumatology [address] [place] [address] Isidro Heredia MD [address] [place] [address] Discharge Disposition: Home or Self [...] Comments Blood Pressure 177/83 05/17/2015 3:35 PM SOLVENT PROCESS EXTRACTOR OPERATOR Pulse 85 05/17/2015 3:35 PM SOLVENT PROCESS EXTRACTOR OPERATOR Temperature 36.8 ??C (98.2 ??F) 05/17/2015 3:12 PM CS T Respiratory Rate 16 05/17/2015 3:12 PM SOLVENT PROCESS EXTRACTOR OPERATOR Oxygen Saturation - - Inhaled Oxygen Concentration - - Weight 115.8 kg (255 lb 6.4 oz) 05/17/2015 3:12 PM SOLVENT PROCESS EXTRACTOR OPERATOR Height - - Body Mass Index 36.65 04/07/2015 3:10 PM SOLVENT PROCESS EXTRACTOR OPERATOR documented in this encounter Discharge Instructions * Discharge Instructions* Jody Sahu RN - 05/17/2015 3:17 PM SOLVENT PROCESS EXTRACTOR OPERATOR ID Rheumatology Post Infusion instructions You [...] through Sunday 9-5 call the office at [phone] After hours or on the weekend call the exchange at [phone] If you have had lab work done [...] Hospital as your provider. Jody Sahu RN ENT PROCESS EXTRACTOR OPERATOR documented in this encounter Medications at Time of Discharge Medication Sig Dispensed Refills Start Date End Date Rbysdsiiazp-Uvlrtqvch-Y it C-Mn (GLUCOSAMINE CHONDR 1500 COMPLX PO) [...] 05/17/2015 3:33 PM CST JOSE Chalino Deng [id number] 05/17/2015 Diagnosis: Rheumatoid arthritis without rheumatoid factor, [...] Next treatment? 4 weeks Jody Sahu RN ENT PROCESS EXTRACTOR OPERATOR documented in this encounter Plan of Treatment Upcoming Encounters Date Type Department Care Team (Late st Contact Info) Description 06/03/2024 1:00 PM SOLVENT PROCESS EXTRACTOR OPERATOR Appointment [facility] - Rheumatology [address] [place] [address] 06/03/2024 2:00 PM SOLVENT PROCESS EXTRACTOR OPERATOR Office Visit [facility] - Rheumatology [address] [place] [address] Gloria Smith MD [address] [place] [phone] documented as of this encounter Visit Diagnoses [...] 24hrs RT $ Given 05/17/2015 3:20 PM SOLVENT PROCESS EXTRACTOR OPERATOR 800 mg 140 mL/hr documented in this encounter Care Teams Trim Machine Adjuster Relationship Specialty Start Date End Date Tomas Hyman MD [address] [facility] [address] [place] [address] PCP - General Family Medicine 12/31/13 05/09/18 Isidro Heredia MD Rheumatology 02/09/11 documented as of this encounter
--- OUTSIDE RECORDS SUMMARY | 2024-05-10 18:48 | XMS_ITS | Encounter Summary ---
Author Organization [facility] Address [address] [facility] [place] [address] Care Team Providers Care Television Specialist Name Role Phone Isidro Heredia MD Unavailable [phone] Tomas Hyman MD Primary Care Provider [phone] Encounter Details Date Type Department Care Team (Late st Contact Info) Description 07/19/2015 Orders Only [facility] Medical [facility] - Rheumatology [address] [place] [address] [phone] Isidro Heredia MD [address] [place] [address] Rheumatoid arthritis of multiple sites with [...] st Contact Info) Description 06/03/2024 1:00 PM RETREAD SUPERVISOR Appointment [facility] - Rheumatology [address] [place] [address] [phone] 06/03/2024 2:00 PM RETREAD SUPERVISOR Office Visit [facility] - Rheumatology [address] [place] [address] Gloria Smith MD [address] [place] [phone] documented as of this encounter Procedures [...] [facility] INSURANCE BILL Comment:LDL/HDL RATIO BLOOD ([facility]) 1.8 <5.0 Cholesterol/HDL Ratio 4.2 <4.5 [facility] INSURANCE BILL Blood specimen (specimen) BLOOD SPECIMEN / Unknown 07/19/2015 4:30 PM CDT 07/19/2015 7:11 PM CDT Narrative Resulting Agency Comment [facility] [address] [facility] [place] [id number] Isidro Heredia MD LAB - CHEMISTRY ORD ERABLES [facility] INSURANCE BILL documented in this encounter Visit Diagnoses Diagnosis Rheumatoid arthritis of multiple sites with negative rheumatoid factor (HCC)- Primary documented in this encounter Care Teams Television Specialist Relationship Specialty Start Date End Date Tomas Hyman MD [address] [place] [address] PCP - General Family Medicine 12/31/13 05/09/18 Isidro Heredia MD Rheumatology 02/09/11 documented as of this encounter
--- OUTSIDE RECORDS SUMMARY | 2024-05-10 18:48 | XMS_ITS | Encounter Summary ---
Author Organization [facility] Address [address] [facility] [place] [address] Care Team Providers Care Geek Squad Agent Name Role Phone Isidro Heredia MD Unavailable Tomas Hyman MD Primary Care Provider [phone] Reason for Visit * Reason Comments Rheumatoid Arthritis * Evaluate & Treat (Routine) - Closed Specialty Diagnoses / Procedures Referred By Lawrence t Referred To Contact Diagnoses Rheumatoid arthritis(714.0) (HCC) Procedures [place] OFFICE VISIT DURING HOURS Tomas Hyman MD [address] [facility] [address] [place] [address] Isidro Heredia MD [address] [place] [address] Referral ID Status Reason Start Date Expiration Date Visits Re quested Visits Authorized [id number] Closed 02/10/2014 02/10/2015 6 6 Encounter Details Date Type Department Care Team (Late st Contact Info) Description 07/13/2014 4:15 PM CDT Office Visit [facility] Medical [facility] - Rheumatology [address] [place] [address] Isidro Heredia MD [address] [place] [address] Rheumatoid arthritis(714.0) (HCC) (Primary Dx) Social [...] PO) Take by mouth once daily. ??? Ltsgeblyotd-Swslzvkjd-Apu C-Mn (GLUCOSAMINE CHONDR 1500 COMPLX PO) Take [...] Contact Info) Description 06/03/2024 1:00 PM SUPERVISOR IRRIGATION Appointment [facility] - Rheumatology [address] [place] [address] [phone] 06/03/2024 2:00 PM SUPERVISOR IRRIGATION Office Visit [facility] - Rheumatology [address] [place] [address] Gloria Smith MD [address] [place] [phone] documented as of this encounter Visit Diagnoses Diagnosis Rheumatoid arthritis(714.0) ([facility])- Primary Rheumatoid arthritis documented in this encounter Care Teams Geek Squad Agent Relationship Specialty Start Date End Date Tomas Hyman MD [address] [facility] [address] [place] [address] PCP - General Family Medicine 12/31/13 05/09/18 Isidro Heredia MD Rheumatology 02/09/11 documented as of this encounter
--- OUTSIDE RECORDS SUMMARY | 2024-05-10 18:48 | XMS_ITS | Encounter Summary ---
Author Organization [facility] Address [address] [place] [address] Care Team Providers Care Braider Setter Name Role Phone Isidro Heredia MD Unavailable [phone] Tomas Hyman MD Primary Care Provider [phone] Reason for Visit * Reason Comments Refill Request Encounter Details Date Type Department Care Team (Late Contact Info) Description 06/17/2015 Refill [facility] - Rheumatology [address] [place] [address] Isidro Heredia MD [address] [place] [address] Refill Request Social History Tobacco Use [...] Contact Info) Description 06/03/2024 1:00 PM PROGRAM SUPERVISOR Appointment [facility] - Rheumatology [address] [place] [address] 06/03/2024 2:00 PM PROGRAM SUPERVISOR Office Visit [facility] Rheumatology [address] [place] [address] Gloria Smith MD [address] [place] [address], [place] [address] documented as of this encounter Visit Diagnoses Not on filedocumented in this encounter Care Teams Braider Setter Relationship Specialty Start Date End Date Tomas Hyman MD [address] [place] [address] PCP - General Family Medicine 12/31/13 05/09/18 Isidro Heredia MD Rheumatology 02/09/11 documented as of this encounter
--- OUTSIDE RECORDS SUMMARY | 2024-05-10 18:48 | XMS_ITS | Encounter Summary ---
Author Organization [facility] Address [address] [facility] [place] [address] Care Team Providers Care Mdm Developer Name Role Phone Isidro Heredia MD Unavailable [phone] Tomas Hyman MD Primary Care Provider [phone] Reason for Referral * Procedure - Closed Specialty Diagnoses / Procedures Referred By Contac t Referred To Contact Cardiology Diagnoses Tachycardia Procedures EKG 12-LEAD Isidro Heredia MD [address] [place] [address] Referral ID Status Reason Start Date Expiration Date Visits Re quested Visits Authorized [id number] Closed 05/26/2014 11/22/2014 1 1 Reason for Visit * Treatment (Routine) - Closed Specialty Diagnoses / Procedures Referred By Contac t Referred To Contact Infusion Therapy Nurse Diagnoses Rheumatoid arthritis(714.0) ([facility]) Procedures AR INJECTION TOCILIZUMAB 1 MG Isidro Heredia MD [address] [place] [address] [address] Referral ID Status Reason Start Date Expiration Date Visits Re quested Visits Authorized [id number] Closed 05/08/2014 10/05/2014 1 6 Encounter Details Date Type Department Care Team (Late st Contact Info) Description 07/13/2014 2:25 PM CDT - 07/13/2014 11:59 PM CDT Hospital Encounter [facility] - Rheumatology [address] [place] [address] Isidro Heredia MD [address] [facility] [place] [address] Discharge Disposition: Home or Self Care Social [...] Foreman RN - 07/13/2014 3:07 PM CDT [place] [facility] Post Infusion instructions [...] through Sunday 9-5 call the office at [phone] After hours or on the weekend call the exchange at [phone] If you have had lab work done [...] Sig Dispensed Refills Start Date End Date Lorteajtvze-Imcjdicwn-Xu t C-Mn (GLUCOSAMINE CHONDR 1500 COMPLX PO) [...] 5-325 MG tabletIndications:Rheuma toid arthritis(714.0) ([facility]) Take 1 Tab by mouth every [...] 0.9 % 100 mLIndications:Rheumatoid arthritis(714.0) ([facility]) Pt to receive IV infusion 800mg Actemra/100cc0.9%norm al saline, per nasir Avila's office practice of Actemra 8mg/kg over 60 minutes and the Actemra schedule; first dose, then every 4 weeks thereafter, unless further orders received from . Exp 09/04/2014 09/04/2013 09/04/2014 documented as of this encounter Progress Notes * Carlos Foreman, RN - 07/13/2014 3:13 PM CDT JOSE Deng [id number] 07/13/2014 Diagnosis: Tachycardia [785.0]. Patient questionnaire results [...] st Contact Info) Description 06/03/2024 1:00 PM ACCOUNT EXECUTIVE SOFTWARE SALES Appointment [facility] - Rheumatology [address] [place] [address] 06/03/2024 2:00 PM ACCOUNT EXECUTIVE SOFTWARE SALES Office Visit [facility] - Rheumatology [address] [place] [address] Gloria Smith MD [address] [place] [address] Scheduled Orders Name Type Priority Associated [...] 1245, 2 vials used of Actemra 400MG [facility] [place] 46798-848-50 with 0 WASTE $ Given 07/13/2014 2:50 PM CDT 800 mg 140 m L/hr documented in this encounter Care Teams Mdm Developer Relationship Specialty Start Date End Date Tomas Hyman MD [address] [facility] [address] [place] [address] PCP - General Family Medicine 12/31/13 05/09/18 Isidro Heredia MD Rheumatology 02/09/11 documented as of this encounter
--- OUTSIDE RECORDS SUMMARY | 2024-05-10 18:48 | XMS_ITS | Encounter Summary ---
Author Organization [facility] Address [address] [facility] [place] [address] Care Team Providers Care Linen Tech Name Role Phone Isidro Heredia MD Unavailable [phone] Tomas Hyman MD Primary Care Provider [phone] Encounter Details Date Type Department Care Team (Latest Contact Info) Description 12/29/2014 9:05 AM CDT - 12/29/2014 11:59 PM CDT Hospital Encounter [facility] Pain Care [address] [place] [address] [place] [address] [place] [address] Discharge Disposition: Home or Self Care Social [...] Mckinney RN - 12/29/2014 9:11 AM CDT [facility] Procedure Center [...] headache, or any other problems, please call [phone] or after hours callDr. Mirza at [phone] and tell them your physician's name. The exchange will alert the physician contract technical writer. If sedation is given: No sedation given. For Your Next Visit: No additional instructions. Other Instructions: May remove band-aid in 12 Hours. Return in 1 week KIMBERLEY#3. RN Signature: Date: documented in this encounter Medications at Time of Discharge Medication Sig Dispensed Refills Start Date End Date Wwhknivexyo-Bzotijvqr-K it C-Mn (GLUCOSAMINE CHONDR 1500 COMPLX PO) [...] Coumidin, Plavix or other blood thinners. Responsible road driver is not needed due [...] Contact Info) Description 06/03/2024 1:00 PM HOME HEALTH SPECIALIST Appointment [facility] - Rheumatology [address] [place] [address] 06/03/2024 2:00 PM HOME HEALTH SPECIALIST Office Visit [facility] - Rheumatology [address] [place] [address] Gloria Smith MD [address] [place] [phone] documented as of this encounter Procedures [...] Coumidin, Plavix or other blood thinners. ??Responsible road driver is not needed due [...] Back documented in this encounter Care Teams Linen Tech Relationship Specialty Start Date End Date Tomas Hyman MD [address] [facility] [address] [place] [address] PCP - General Family Medicine 12/31/13 05/09/18 Isidro Heredia MD Rheumatology 02/09/11 documented as of this encounter
--- OUTSIDE RECORDS SUMMARY | 2024-05-10 18:48 | XMS_ITS | Encounter Summary ---
Author Organization [facility] Address [address] [facility] [place] [address] Care Team Providers Care Telemetry Nurse Name Role Phone Isidro Heredia MD Unavailable Tomas Hyman MD Primary Care Provider Reason for Visit * Reason Comments Rheumatoid Arthritis * Evaluate & Treat (Routine) - Closed Specialty Diagnoses / Procedures Referred By Lawrence shah Referred To Contact Diagnoses Rheumatoid arthritis(714.0) (HCC) Procedures [place] OFFICE VISIT DURING HOURS Tomas Hyman MD [address] [place] [address] Isidro Heredia MD [address] [place] [address] Referral ID Status Reason Start Date Expiration Date Visits Re quested Visits Authorized [id number] Closed 08/12/2014 02/08/2015 3 3 Encounter Details Date Type Department Care Team (Late st Contact Info) Description 09/09/2014 3:00 PM CDT Office Visit [facility] Medical [facility] - Rheumatology [address] [place] [address] Isidro Heredia MD [address] [place] [address] Rheumatoid arthritis(714.0) (HCC) (Primary Dx); Chronic [...] PO) Take by mouth once daily. ??? Fbshxfkcexn-Nrtousfga-Hwc C-Mn (GLUCOSAMINE CHONDR 1500 COMPLX PO) Take [...] st Contact Info) Description 06/03/2024 1:00 PM GUNCOTTON PACKER Appointment [facility] - Rheumatology [address] [place] [address] 06/03/2024 2:00 PM GUNCOTTON PACKER Office Visit [facility] Medical [facility] - Rheumatology [address] [place] [address] [phone] Gloria Smith MD [address] [place] [phone] documented as of this encounter Visit Diagnoses Diagnosis Rheumatoid arthritis(714.0) ([facility])- Primary Rheumatoid arthritis Chronic pain syndrome Lumbar radiculopathy Thoracic or lumbosacral neuritis or radiculitis, unspecified documented in this encounter Care Teams Telemetry Nurse Relationship Specialty Start Date End Date Tomas Hyman MD [address] [facility] [address] [place] [address] PCP - General Family Medicine 12/31/13 05/09/18 Isidro Heredia MD Rheumatology 02/09/11 documented as of this encounter
--- OUTSIDE RECORDS SUMMARY | 2024-05-10 18:48 | XMS_ITS | Encounter Summary ---
Author Organization [facility] Address [address] [place] [address] Care Team Providers Care Commodities Clerk Name Role Phone Isidro Heredia MD Unavailable [phone] Tomas Hyman MD Primary Care Provider Reason for Visit * Reason Onset Date Comments Follow-up 07/07/2014 Encounter Details Date Type Department Care Team (Late st Contact Info) Description 07/07/2014 Telephone [facility] - Rheumatology [address] [place] [address] Isidro Heredia MD [address] [place] [address] Follow-up Social History Tobacco Use Types [...] Contact Info) Description 06/03/2024 1:00 PM SUPERVISOR COLOR MAKING Appointment [facility] - Rheumatology [address] [place] [address] 06/03/2024 2:00 PM SUPERVISOR COLOR MAKING Office Visit [facility] - Rheumatology [address] [place] [address] Gloria Smith MD [address] [place] [phone] documented as of this encounter Visit Diagnoses Not on filedocumented in this encounter Care Teams Commodities Clerk Relationship Specialty Start Date End Date Tomas Hyman MD [address] [place] [address] PCP - General Family Medicine 12/31/13 05/09/18 Isidro Hereida MD Rheumatology 02/09/11 documented as of this encounter
--- OUTSIDE RECORDS SUMMARY | 2024-05-10 18:48 | XMS_ITS | Encounter Summary ---
Author Organization [facility] Address [address] [place] [address] Care Team Providers Care Marketing Intern Name Role Phone Isidro Heredia MD Unavailable [phone] Tomas Hyman MD Primary Care Provider [phone] Encounter Details Date Type Department Care Team (Latest Contact Info) Description 12/21/2014 9:20 AM CDT - 12/21/2014 11:59 PM CDT Hospital Encounter [facility] Pain Care [address] [place] [address] [place] [address] [place] [address] Discharge Disposition: Home or Self Care Social [...] RN - 12/21/2014 9:31 AM CDT [facility] Procedure Center Pain Discharge Instructions Selective [...] headache, or any other problems, please call [phone] or after hours callDr. Mirza at [phone] and tell them your physician's name. The exchange will alert the physician liaison inspection laboratory assistant. If sedation is given: No sedation given. For Your Next Visit: No additional instructions. Other Instructions: May remove band-aid in 12 Hours. Return in one week for KIMBERLEY #2. Patient Signature: Date: RN Signature: Date: documented in this encounter Medications at Time of Discharge Medication Sig Dispensed Refills Start Date End Date Zpqtbyacmqt-Avzzmnqvx-H it C-Mn (GLUCOSAMINE CHONDR 1500 COMPLX PO) [...] Coumidin, Plavix or other blood thinners. Responsible xm1 tank driver is not needed due to the [...] st Contact Info) Description 06/03/2024 1:00 PM MISSION ASSESSMENT SPECIALIST Appointment [facility] - Rheumatology [address] [place] [address] 06/03/2024 2:00 PM MISSION ASSESSMENT SPECIALIST Office Visit [facility] - Rheumatology [address] [place] [address] Gloria Smith MD [address] [place] [phone] documented as of this encounter Procedures [...] Coumidin, Plavix or other blood thinners. ??Responsible xm1 tank driver is not needed due to the [...] Back documented in this encounter Care Teams Marketing Intern Relationship Specialty Start Date End Date Tomas Hyman MD [address] [facility] [address] [place] [address] PCP - General Family Medicine 12/31/13 05/09/18 Isidro Heredia MD Rheumatology 02/09/11 documented as of this encounter
--- OUTSIDE RECORDS SUMMARY | 2024-05-10 18:48 | XMS_ITS | Encounter Summary ---
Author Organization [facility] Address [address] [facility] [place] [address] Care Team Providers Care River Expedition Guide Name Role Phone Isidro Heredia MD Unavailable [phone] Tomas Hyman MD Primary Care Provider Reason for Visit * Reason Comments Follow-up RA; lower joint extr emity pain Pain Back lower back pain * Evaluate & Treat (Routine) - Closed Specialty Diagnoses / Procedures Referred By Contac t Referred To Contact Diagnoses Rheumatoid arthritis(714.0) (HCC) Procedures [place] OFFICE/OUTPT VISIT,JULITO RODRIGUEZ Jason E, MD [address] [place] [address] Isidro Heredia MD [address] [place] [address] Referral ID Status Reason Start Date Expiration Date Visits Re quested Visits Authorized [id number] Closed 09/09/2014 03/08/2015 5 5 Encounter Details Date Type Department Care Team (Late st Contact Info) Description 11/05/2014 2:30 PM CDT Office Visit [facility] - Rheumatology [address] [place] [address] Isidro Heredia MD [address] [place] [address] Rheumatoid arthritis(714.0) (HCC) (Primary Dx); [...] PO) Take by mouth once daily. ??? Acxbohaebbb-Bsdjspbzy-Neg C-Mn (GLUCOSAMINE CHONDR 1500 COMPLX PO) Take [...] Contact Info) Description 06/03/2024 1:00 PM SAFETY INVESTIGATOR/CAUSE ANALYST Appointment [facility] - Rheumatology [address] [place] [address] 06/03/2024 2:00 PM SAFETY INVESTIGATOR/CAUSE ANALYST Office Visit [facility] - Rheumatology [address] [place] [address] Gloria Smith MD [address] [place] [phone] documented as of this encounter Visit Diagnoses Diagnosis Rheumatoid arthritis(714.0) (HCC)- Primary Rheumatoid arthritis Chronic pain syndrome documented in this encounter Care Teams River Expedition Guide Relationship Specialty Start Date End Date Tomas Hyman MD [address] [facility] [address] [place] [address] PCP - General Family Medicine 12/31/13 05/09/18 Isidro Heredia MD Rheumatology 02/09/11 documented as of this encounter
--- OUTSIDE RECORDS SUMMARY | 2024-05-10 18:48 | XMS_ITS | Encounter Summary ---
Author Organization [facility] Address [address] [facility] [place] [address] Care Team Providers Care Medical Equipment Technician Name Role Phone Isidro Heredia MD Unavailable [phone] Tomas Hyman MD Primary Care Provider [phone] Reason for Visit * Treatment (Routine) - Closed Specialty Diagnoses / Procedures Referred By Lawrence shah Referred To Contact [place] [address] [address] [facility] Pain Care [address] [place] [address] Referral ID Status Reason Start Date Expiration Date Visits Re quested Visits Authorized [id number] Closed 09/07/2015 03/05/2016 1 1 Encounter Details Date Type Department Care Team (Latest Contact Info) Description 09/07/2015 9:51 AM CDT - 09/07/2015 9:53 AM CDT Hospital Encounter [facility] Pain Care [address] [place] [address] [place] [address] [address] Discharge Disposition: Home or Self [...] Sig Dispensed Refills Start Date End Date Utorbmewdqb-Ltyzlgaho-D it C-Mn (GLUCOSAMINE CHONDR 1500 COMPLX PO) [...] st Contact Info) Description 06/03/2024 1:00 PM LABEL SEWER Appointment [facility] - Rheumatology [address] [place] [address] [phone] 06/03/2024 2:00 PM LABEL SEWER Office Visit [facility] - Rheumatology [address] [place] [address] [phone] Gloria Smith MD [address] [place] [phone] documented as of this encounter Visit Diagnoses Not on filedocumented in this encounter Care Teams Medical Equipment Technician Relationship Specialty Start Date End Date Tomas Hyman MD [address] [facility] [address] [place] [address] PCP - General Family Medicine 12/31/13 05/09/18 Isidro Heredia MD Rheumatology 02/09/11 documented as of this encounter
--- OUTSIDE RECORDS SUMMARY | 2024-05-10 18:48 | XMS_ITS | Encounter Summary ---
Author Organization [facility] Address [address] [place] [address] Care Team Providers Care Riveter Automobile Brakes Name Role Phone Isidro Heredia MD Unavailable [phone] Tomas Hyman MD Primary Care Provider [phone] Encounter Details Date Type Department Care Team (Latest Contact Info) Description 09/07/2015 9:54 AM CDT - 09/07/2015 11:59 PM CDT Hospital Encounter [facility] Pain Care [address] [place] [address] [place] [address] [place] [address] Discharge Disposition: Home or Self Care Social [...] Pond RN - 09/07/2015 10:19 AM CDT [facility] Procedure Center Pain Discharge Instructions Selective [...] headache, or any other problems, please call [phone] or after hours callDr. Mirza at [phone] and tell them your physician's name. The exchange will alert the physician clinical applications specialist. If sedation is given: No sedation given. For Your Next Visit: No additional instructions. Other Instructions: May remove band-aid in 12 Hours. Return in one week for KIMBERLEY #2 documented in this encounter Medications at Time of Discharge Medication Sig Dispensed Refills Start Date End Date Ppvnqgszoib-Ruuqgxbde-Y it C-Mn (GLUCOSAMINE CHONDR 1500 COMPLX PO) [...] Coumadin, Plavix or other blood thinners. Responsible sales driver is not needed due to the [...] Description 06/03/2024 1:00 PM WRAPPER SHEETER Appointment [facility] - Rheumatology [address] [place] [address] [phone] 06/03/2024 2:00 PM WRAPPER SHEETER Office Visit [facility] - Rheumatology [address] [place] [address] [phone] Gloria Smith MD [address] [place] [phone] documented as of this encounter Procedures Procedure [...] Coumadin, Plavix or other blood thinners. ??Responsible sales driver is not needed due to the [...] Back documented in this encounter Care Teams Riveter Automobile Brakes Relationship Specialty Start Date End Date Tomas Hyman MD [address] [facility] [address] [place] [address] PCP - General Family Medicine 12/31/13 05/09/18 Isidro Heredia MD Rheumatology 02/09/11 documented as of this encounter
--- OUTSIDE RECORDS SUMMARY | 2024-05-10 18:48 | XMS_ITS | Encounter Summary ---
Author Organization [facility] Address [address] [facility] [place] [address] Care Team Providers Care Account Services Associate Name Role Phone Isidro Heredia MD Unavailable [phone] Tomas Hyman MD Primary Care Provider [phone] Reason for Visit * Reason Comments Rheumatoid Arthritis Encounter Details Date Type Department Care Team (Late st Contact Info) Description 08/16/2015 5:15 PM CDT Office Visit [facility] - Rheumatology [address] [place] [address] Isidro Heredia MD [address] [place] [address] Rheumatoid arthritis of multiple sites with [...] 1 Tab by mouth once daily ??? Rcgjyihgfvj-Wowqxfxrs-Jdt C-Mn (GLUCOSAMINE CHONDR 1500 COMPLX PO) Take [...] TRIAMCINOLON ACETONID NOS 10 MG INJ ??? CT DRAIN/INJECT LARGE JOINT/BURSA ??? oxyCODONE-acetaminophen [...] st Contact Info) Description 06/03/2024 1:00 PM CORRECTIONAL PROGRAM SPECIALIST Appointment [facility] - Rheumatology [address] [place] [address] [phone] 06/03/2024 2:00 PM CORRECTIONAL PROGRAM SPECIALIST Office Visit [facility] - Rheumatology [address] [place] [address] [phone] Gloria Smith MD [address] [place] [phone] documented as of this encounter Visit Diagnoses [...] Shoulder documented in this encounter Care Teams Account Services Associate Relationship Specialty Start Date End Date Tomas Hyman MD [address] [facility] [address] [place] [address] PCP - General Family Medicine 12/31/13 05/09/18 Isidro Heredia MD Rheumatology 02/09/11 documented as of this encounter
--- OUTSIDE RECORDS SUMMARY | 2024-05-10 18:48 | XMS_ITS | Encounter Summary ---
Author Organization [facility] Address [address] [facility] [place] [address] Care Team Providers Care Wet And Dry Sugar Bin Operator Name Role Phone Hitesh Solis MD Unavailable Tomas Hyman MD Primary Care Provider [phone] Reason for Visit * Reason Comments Rheumatoid Arthritis * Evaluate & Treat (Routine) - Closed Specialty Diagnoses / Procedures Referred By Lawrence t Referred To Contact Diagnoses Rheumatoid arthritis with rheumatoid factor, unspecified (HCC) Procedures [place] OFFICE VISIT DURING HOURS Tomas Hyman MD [address] [place] [address] Hitesh Solis MD [address] [place] [address] Referral ID Status Reason Start Date Expiration Date Visits Re quested Visits Authorized [id number] Closed 02/24/2015 02/24/2016 6 6 Encounter Details Date Type Department Care Team (Late st Contact Info) Description 04/07/2015 3:30 PM ROOM SERVICE FOOD SERVICE ATTENDANT Office Visit [facility] - Rheumatology [address] [place] [address] Hitesh Solis MD [address] [place] [address] Rheumatoid arthritis of multiple sites without [...] Comments Blood Pressure 120/88 04/07/2015 3:41 PM ROOM SERVICE FOOD SERVICE ATTENDANT Pulse 108 04/07/2015 3:41 PM ROOM SERVICE FOOD SERVICE ATTENDANT Temperature - - Respiratory Rate - - Oxygen Saturation - - Inhaled Oxygen Concentration - - Weight 117 kg (258 lb) 04/07/2015 3:41 PM ROOM SERVICE FOOD SERVICE ATTENDANT Height - - Body Mass Index 37.02 04/07/2015 3:10 PM ROOM SERVICE FOOD SERVICE ATTENDANT documented in this encounter Progress Notes * Yamileth Rodríguez MA - 04/12/2015 11:22 AM CSTQuick Note: Patient was given results through my chart message SERVICE FOOD SERVICE ATTENDANT * Hitesh Solis MD - 04/11/2015 10:26 PM CSTQuick Note: [place] [address] bs 125 sl inc lfts [place] Resume mtx meron SERVICE FOOD SERVICE ATTENDANT * Hitesh Solis MD - 04/07/2015 4:16 [...] PO) Take by mouth once daily. ??? Dhmidbhmppf-Nzjypzgiv-Fsx C-Mn (GLUCOSAMINE CHONDR 1500 COMPLX PO) Take [...] C-REACTIVE PROTEIN ??? SED RATE WESTERGREN ??? OH DRAIN/INJECT LARGE JOINT/BURSA ??? oxyCODONE-acetaminophen (PERCOCET) 5-325 [...] Follow up in office in 4 weeks SERVICE FOOD SERVICE ATTENDANT documented in this encounter Miscellaneous Notes * Addendum Note - Hitesh Solis MD - 04/13/2015 6:19 PM CSTAddended by: HITESH SOLIS on: 04/13/2015 06:19 PM Modules accepted: Orders SERVICE FOOD SERVICE ATTENDANT documented in this encounter Plan of Treatment Upcoming Encounters Date Type Department Care Team (Late st Contact Info) Description 06/03/2024 1:00 PM ROOM SERVICE FOOD SERVICE ATTENDANT Appointment [facility] - Rheumatology [address] [place] [address] 06/03/2024 2:00 PM ROOM SERVICE FOOD SERVICE ATTENDANT Office Visit [facility] - Rheumatology [address] [place] [address] Gloria Smith MD [address] [place] [phone] documented as of this encounter Procedures Procedure Name Priority Date/Time Associated Diagnosis Comments C-REACTIVE PROTEIN Routine 04/07/2015 4: 30 PM ROOM SERVICE FOOD SERVICE ATTENDANT Rheumatoid arthritis of multiple 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 factor (HCC) ERYTHROCYTE SEDIMENTATION RATE Routine 04/07/2015 4:30 PM ROOM SERVICE FOOD SERVICE ATTENDANT Rheumatoid arthritis of multiple 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 factor (HCC) CBC W AUTO DIFFERENTIAL Routine 04/07/2015 4:30 PM ROOM SERVICE FOOD SERVICE ATTENDANT Rheumatoid arthritis of multiple 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 factor (HCC) COMPREHENSIVE METABOLIC PANEL Routine 04/07/2015 4:30 PM ROOM SERVICE FOOD SERVICE ATTENDANT Rheumatoid arthritis of multiple 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 factor (HCC) documented in this encounter Results * SED RATE WESTERGREN (04/07/2015 4:30 PM ROOM SERVICE FOOD SERVICE ATTENDANT) Erythrocyte Sedimentation Rate Westergren 6 0 - 20 mm/hr [facility] INSURANCE BILL Blood specimen (specimen) BLOOD SPECIMEN / Unknown 04/07/2015 4:30 PM ROOM SERVICE FOOD SERVICE ATTENDANT 04/07/2015 7:24 PM ROOM SERVICE FOOD SERVICE ATTENDANT Narrative Resulting Agency Comment [facility] [address] ??Ziyad PENNY [id number] Hitesh Solis MD LAB - HEMATOLOGY OR DERABLES [facility] INSURANCE BILL * C-REACTIVE PROTEIN (04/07/2015 4:30 PM ROOM SERVICE FOOD SERVICE ATTENDANT) C-Reactive Protein <0.29 <0.30 mg/dL [facility] INSURANCE BILL Blood specimen (specimen) BLOOD SPECIMEN / Unknown 04/07/2015 4:30 PM ROOM SERVICE FOOD SERVICE ATTENDANT 04/07/2015 7:24 PM ROOM SERVICE FOOD SERVICE ATTENDANT Narrative Resulting Agency Comment [facility] [address] ??Ziyad PENNY [id number] Hitesh Solis MD LAB - CHEMISTRY ORD ERABLES [facility] INSURANCE BILL * (ABNORMAL) COMPREHENSIVE METABOLIC PANEL (04/07/2015 4:30 PM ROOM SERVICE FOOD SERVICE ATTENDANT) Glucose 125(H) 74 - 106 mg/dL [facility] [...] BLOOD SPECIMEN / Unknown 04/07/2015 4:30 PM ROOM SERVICE FOOD SERVICE ATTENDANT 04/07/2015 7:24 PM ROOM SERVICE FOOD SERVICE ATTENDANT Narrative Resulting Agency Comment [facility] [address] [facility] ??Ziyad PENNY [id number] Hitesh Solis MD LAB - CHEMISTRY ORD ERABLES [facility] INSURANCE BILL * (ABNORMAL) CBC W AUTO DIFFERENTIAL (04/07/2015 4:30 PM ROOM SERVICE FOOD SERVICE ATTENDANT) WBC 11.6(H) 4.4 - 10.7 x10E9/L [facility] [...] BLOOD SPECIMEN / Unknown 04/07/2015 4:30 PM ROOM SERVICE FOOD SERVICE ATTENDANT 04/07/2015 7:24 PM ROOM SERVICE FOOD SERVICE ATTENDANT Narrative Resulting Agency Comment [facility] [address] [facility] ??[facility] [phone] Hitesh Solis MD LAB - HEMATOLOGY OR [...] r documented in this encounter Care Teams Wet And Dry Sugar Bin Operator Relationship Specialty Start Date End Date Tomas Hyman MD [address] [facility] [address] [place] [address] PCP - General Family Medicine 12/31/13 05/09/18 Hitesh Solis MD Rheumatology 02/09/11 documented as of this encounter
--- OUTSIDE RECORDS SUMMARY | 2024-05-10 18:48 | XMS_ITS | Encounter Summary ---
Author Organization [facility] Address [address] [place] [address] Care Team Providers Care School Traffic Supervisor Name Role Phone Isidro Heredia MD Unavailable [phone] Tomas Hyman MD Primary Care Provider [phone] Reason for Visit * Treatment (Routine) - Closed Specialty Diagnoses / Procedures Referred By Lawrence shah Referred To Contact Infusion Therapy Nurse Diagnoses Rheumatoid arthritis(714.0) (HCC) Rheumatoid arthritis without rheumatoid factor, multiple sites (HCC) Procedures HI INFLIXIMAB INJECTION HI INJECTION TOCILIZUMAB 1 MG Isidro Heredia MD [address] [place] [address] [phone] Referral ID Status Reason Start Date Expiration Date Visits Re quested Visits Authorized [id number] Closed 01/07/2015 01/08/2016 1 12 Encounter Details Date Type Department Care Team (Late st Contact Info) Description 08/16/2015 3:37 PM CDT - 08/16/2015 11:59 PM CDT Hospital Encounter [facility] Medical [facility] - Rheumatology [address] [place] [address] Isidro Heredia MD [address] [place] [address] Discharge Disposition: Home or Self [...] Sahu RN - 08/16/2015 3:58 PM CDT [place] Rheumatology Post Infusion instructions You [...] through Sunday 9-5 call the office at [phone] After hours or on the weekend call the exchange at [phone] If you have had lab work done [...] Sig Dispensed Refills Start Date End Date Mvxmxzqcjkl-Tcyfnggqh-I it C-Mn (GLUCOSAMINE CHONDR 1500 COMPLX PO) [...] - 08/16/2015 4:13 PM CDT JOSE Deng [id number] 08/16/2015 Diagnosis: Rheumatoid arthritis without rheumatoid factor, [...] Contact Info) Description 06/03/2024 1:00 PM TOOL REPAIRER Appointment [facility] - Rheumatology [address] [place] [address] 06/03/2024 2:00 PM TOOL REPAIRER Office Visit [facility] - Rheumatology [address] [place] [address] Gloria Smith MD [address] [place] [phone] documented as of this encounter Visit Diagnoses [...] mL/hr documented in this encounter Care Teams School Traffic Supervisor Relationship Specialty Start Date End Date Tomas Hyman MD [address] [facility] [address] [place] [address] PCP - General Family Medicine 12/31/13 05/09/18 Isidro Heredia MD Rheumatology 02/09/11 documented as of this encounter
--- OUTSIDE RECORDS SUMMARY | 2024-05-10 18:49 | XMS_ITS | Encounter Summary ---
Author Organization [facility] Address [address] [facility] [place] [address] Care Team Providers Care Plaster Mixer Name Role Phone Isidro Heredia MD Unavailable [phone] Tomas Hyman MD Primary Care Provider [phone] Encounter Details Date Type Department Care Team (Latest Contact Info) Description 04/28/2014 9:58 AM HEDIS ANALYST - 04/28/2014 11:59 PM HEDIS ANALYST Hospital Encounter [facility] Pain Care [address] [place] [address] [place] [address] [place] [phone] Discharge Disposition: Home or Self Care Social [...] Comments Blood Pressure 156/97 04/28/2014 10:26 AM HEDIS ANALYST Pulse 97 04/28/2014 10:26 AM HEDIS ANALYST Temperature - - Respiratory Rate 16 04/28/2014 10:26 AM HEDIS ANALYST Oxygen Saturation 97% 04/28/2014 10:26 AM HEDIS ANALYST Inhaled Oxygen Concentration - - Weight - - Height - - Body Mass Index - - documented in this encounter Discharge Instructions * Patient Instructions* Naomi Cain RN - 04/28/2014 10:10 AM HEDIS ANALYST [facility] Procedure Center Pain Discharge Instructions [...] headache, or any other problems, please call [phone] or after hours callDr. Mirza at [phone] and tell them your physician's name. The exchange will alert the physician line installation supervisor. If sedation is given: No sedation given. For Your Next Visit: No additional instructions. Other Instructions: May remove band-aid in 12 Hours. Return 2 week follow up. Patient Signature: Date: RN Signature: Date: S ANALYST documented in this encounter Medications at Time of Discharge Medication Sig Dispensed Refills Start Date End Date Dugzxstrxth-Akkfbyyxu-Fg t C-Mn (GLUCOSAMINE CHONDR 1500 COMPLX PO) [...] 5-325 MG tabletIndications:Rheuma toid arthritis(714.0) ([facility]) Take 1 Tab by mouth every 6 [...] 0.9 % 100 mLIndications:Rheumatoid arthritis(714.0) ([facility]) Pt to receive IV infusion 800mg Actemra/100cc0.9%norm [...] Coumidin, Plavix or other blood thinners. Responsible drop hammer pile driver operator is not needed due [...] Follow Up: 1 week Alejandro Mirza MD S ANALYST documented in this encounter Plan of Treatment Upcoming Encounters Date Type Department Care Team (Late st Contact Info) Description 06/03/2024 1:00 PM HEDIS ANALYST Appointment [facility] - Rheumatology [address] [place] [address] 06/03/2024 2:00 PM HEDIS ANALYST Office Visit [facility] - Rheumatology [address] [place] [address] Gloria Smith MD [address] [place] [phone] documented as of this encounter Procedures Procedure Name Priority Date/Time Associated Diagnosis Comments PAIN MANAGEMENT PROCEDURE TIME Routine 04/28/2014 10:24 AM HEDIS ANALYST Displacement Of Lumbar Intervertebral Disc Without Myelopathy Thoracic or lumbosacral neuritis or radiculitis, unspecified documented in this encounter Results * PAIN MANAGEMENT PROCEDURE TIME (04/28/2014 10:24 AM HEDIS ANALYST) Anatomical Region Laterality Modality X-Ray Angiograph y Narrative 04/28/2014 10:31 AM HEDIS ANALYST Alejandro Mirza MD ? 04/28/2014 10:31 AM [...] Coumidin, Plavix or other blood thinners. ??Responsible drop hammer pile driver operator is not needed due [...] Admin. by Other Provider 04/28/2014 10:19 AM HEDIS ANALYST 80 mg documented in this encounter Care Teams Plaster Mixer Relationship Specialty Start Date End Date Tomas Hyman MD [address] [facility] [address] [place] [address] PCP - General Family Medicine 12/31/13 05/09/18 Isidro Heredia MD Rheumatology 02/09/11 documented as of this encounter
--- OUTSIDE RECORDS SUMMARY | 2024-05-10 18:49 | XMS_ITS | Encounter Summary ---
Author Organization [facility] Address [address] [facility] [place] [address] Care Team Providers Care Peoplesoft Hcm Consultant Name Role Phone Isidro Heredia MD Unavailable [phone] Tomas Hyman MD Primary Care Provider [phone] Reason for Visit * Treatment (Routine) - Closed Specialty Diagnoses / Procedures Referred By Lawrence shah Referred To Contact Infusion Therapy Nurse Diagnoses Rheumatoid arthritis(714.0) ([facility]) Procedures [place] INJECTION TOCILIZUMAB 1 MG Isidro Heredia MD [address] [place] [address] Referral ID Status Reason Start Date Expiration Date Visits Re quested Visits Authorized [id number] Closed 05/01/2013 04/29/2014 1 12 Encounter Details Date Type Department Care Team (Late st Contact Info) Description 01/14/2014 2:00 PM CDT - 01/14/2014 11:59 PM CDT Hospital Encounter [facility] - Rheumatology [address] [place] [address] Isidro Heredia MD [address] [place] [address] Discharge Disposition: Home or Self [...] Foreman, RN - 01/14/2014 2:34 PM CDT [place] Rheumatology Post Infusion instructions [...] through Sunday 9-5 call the office at [phone] After hours or on the weekend call the exchange at [phone] If you have had lab work done [...] Sig Dispensed Refills Start Date End Date Kqrghesrbnf-Dguaekxox-Ig t C-Mn (GLUCOSAMINE CHONDR 1500 COMPLX PO) [...] 01/14/2014 2:42 PM CDT JOSE Chalino Deng [id number] 01/14/2014 Diagnosis: Rheumatoid arthritis [714.0]. Patient questionnaire [...] Info) Description 06/03/2024 1:00 PM CORPORATE TRAVEL COORDINATOR Appointment [facility] - Rheumatology [address] [place] [address] 06/03/2024 2:00 PM CORPORATE TRAVEL COORDINATOR Office Visit [facility] - Rheumatology [address] [place] [address] Gloria Smith MD [address] [place] [address] [facility] [place] [phone] documented as of this encounter Visit Diagnoses Diagnosis Rheumatoid arthritis(714.0) ([facility])- Primary Rheumatoid arthritis documented in this encounter Administered Medications Inactive Administered Medications - up to 3 most recent administrations Medication Order MAR Action Action Date Dose Rate Site Tocilizumab 800 mg in 0.9% NaCl IVPB 800 mg, at 100 mL/hr, Intravenous, ONCE, 1 dose, On Sun01/14/14 at 0800, 2 vials used of Actemra 400MG [facility] 69495-442-66 with 0 WASTE $ Given 01/14/2014 2:39 PM CDT 800 mg 100 m L/hr documented in this encounter Care Teams Peoplesoft Hcm Consultant Relationship Specialty Start Date End Date Tomas Hyman MD [address] [facility] [address] [place] [address] PCP - General Family Medicine 12/31/13 05/09/18 Isidro Heredia MD Rheumatology 02/09/11 documented as of this encounter
--- OUTSIDE RECORDS SUMMARY | 2024-05-10 18:49 | XMS_ITS | Encounter Summary ---
Author Organization [facility] Address [address] [facility] [place] [address] Care Team Providers Care Burrer Marker Axle Name Role Phone Nolberto Nicole MD Primary Care Provider [phone] Isidro Heredia MD Unavailable [phone] Reason for Visit * Treatment (Routine) - Closed Specialty Diagnoses / Procedures Referred By Lawrence shah Referred To Contact Infusion Therapy Nurse Diagnoses Rheumatoid arthritis(714.0) ([facility]) Procedures [place] INJECTION TOCILIZUMAB 1 MG Isidro Heredia MD [address] [place] [address] Referral ID Status Reason Start Date Expiration Date Visits Re quested Visits Authorized [id number] Closed 05/01/2013 04/29/2014 1 12 Encounter Details Date Type Department Care Team (Late st Contact Info) Description 09/04/2013 2:30 PM CDT - 09/04/2013 11:59 PM CDT Hospital Encounter [facility] - Rheumatology [address] [place] [address] Isidro Heredia MD [address] [place] [address] Discharge Disposition: Home or Self [...] Foreman RN - 09/04/2013 3:08 PM CDT [place] Rheumatology Post Infusion instructions [...] through Sunday 9-5 call the office at [phone] After hours or on the weekend call the exchange at [phone] If you have had lab work done [...] Sig Dispensed Refills Start Date End Date Mcglgorwxlz-Musuoipbi-Bt t C-Mn (GLUCOSAMINE CHONDR 1500 COMPLX PO) [...] - 09/04/2013 3:05 PM CDT JOSE Deng [id number] 09/04/2013 Diagnosis: Rheumatoid arthritis [714.0]. Patient questionnaire [...] Contact Info) Description 06/03/2024 1:00 PM AIR MOVING TECHNICIAN Appointment [facility] - Rheumatology [address] [place] [address] 06/03/2024 2:00 PM AIR MOVING TECHNICIAN Office Visit [facility] - Rheumatology [address] [place] [address] Gloria Smith MD [address] [place] [phone] documented as of this encounter Visit Diagnoses Diagnosis Rheumatoid arthritis(714.0) ([facility])- Primary Rheumatoid arthritis documented in [...] mL/hr documented in this encounter Care Teams Burrer Marker Axle Relationship Specialty Start Date End Date Nolberto Nicole MD PCP - General 07/21/08 12/30/13 Isidro Heredia MD Rheumatology 02/09/11 documented as of this encounter
--- OUTSIDE RECORDS SUMMARY | 2024-05-10 18:49 | XMS_ITS | Encounter Summary ---
Author Organization [facility] Address [address] [facility] [place] [address] Care Team Providers Care Drain Tile Machine Operator Name Role Phone Isidro Heredia MD Unavailable [phone] Tomas Hyman MD Primary Care Provider [phone] Encounter Details Date Type Department Care Team (Late Contact Info) Description 03/12/2014 Orders Only [facility] - Rheumatology [address] [place] [address] Isidro Heredia MD [address] [place] [address] Rheumatoid arthritis (HCC) Social History Tobacco [...] 10:02 PM CSTQuick Note: All labs ok NCED MANUFACTURING ASSOCIATE documented in this encounter Plan of Treatment Upcoming Encounters Date Type Department Care Team (Late Contact Info) Description 06/03/2024 1:00 PM ADVANCED MANUFACTURING ASSOCIATE Appointment [facility] - Rheumatology [address] [place] [address] 06/03/2024 2:00 PM ADVANCED MANUFACTURING ASSOCIATE Office Visit [facility] - Rheumatology [address] [place] [address] Gloria Smith MD [address] [place], [place] [address] [phone] documented as of this encounter Procedures Procedure Name Priority Date/Time Associated Diagnosis Comments ERYTHROCYTE SEDIMENTATION RATE Routine 03/12/2014 3:00 PM ADVANCED MANUFACTURING ASSOCIATE Rheumatoid Arthritis (Hcc) CBC W AUTO DIFFERENTIAL Routine 03/12/2014 3:00 PM ADVANCED MANUFACTURING ASSOCIATE Rheumatoid Arthritis (Hcc) COMPREHENSIVE METABOLIC PANEL Routine 03/12/2014 3:00 PM ADVANCED MANUFACTURING ASSOCIATE Rheumatoid Arthritis (Hcc) documented in this encounter Results * SED RATE WESTERGREN (03/12/2014 3:00 PM ADVANCED MANUFACTURING ASSOCIATE) Erythrocyte Sedimentation Rate Westergren 3 0 - 30 mm/hr [facility] INSURANCE BILL Blood specimen (specimen) BLOOD SPECIMEN / Unknown 03/12/2014 3:00 PM ADVANCED MANUFACTURING ASSOCIATE 03/12/2014 6:44 PM ADVANCED MANUFACTURING ASSOCIATE Narrative Resulting Agency Comment [facility] [address] ??[facility] access hospital [id number] Isidro Heredia MD LAB - HEMATOLOGY OR DERABLES [facility] INSURANCE BILL * (ABNORMAL) COMPREHENSIVE METABOLIC PANEL (03/12/2014 3:00 PM ADVANCED MANUFACTURING ASSOCIATE) Glucose 101(H) 65 - 99 mg/dL [facility] [...] BLOOD SPECIMEN / Unknown 03/12/2014 3:00 PM ADVANCED MANUFACTURING ASSOCIATE 03/12/2014 6:44 PM ADVANCED MANUFACTURING ASSOCIATE Narrative Resulting Agency Comment [facility] [address] ??Critical access hospital [id number] Isidro Heredia MD LAB - CHEMISTRY ORD ERABLES [facility] INSURANCE BILL * CBC W AUTO DIFFERENTIAL (03/12/2014 3:00 PM ADVANCED MANUFACTURING ASSOCIATE) WBC 9.8 3.4 - 10.8 x10E3/uL [facility] [...] BLOOD SPECIMEN / Unknown 03/12/2014 3:00 PM ADVANCED MANUFACTURING ASSOCIATE 03/12/2014 6:44 PM ADVANCED MANUFACTURING ASSOCIATE Narrative Resulting Agency Comment [facility] [address] ??Critical access hospital [phone] Isidro Heredia MD LAB - HEMATOLOGY OR DERABLES [facility] INSURANCE BILL documented in this encounter Visit Diagnoses Diagnosis Rheumatoid arthritis(714.0) ([facility])- Primary Rheumatoid arthritis documented in this encounter Care Teams Drain Tile Machine Operator Relationship Specialty Start Date End Date Tomas Hyman MD [address] [place] [address] PCP - General Family Medicine 12/31/13 05/09/18 Isidro Heredia MD Rheumatology 02/09/11 documented as of this encounter
--- OUTSIDE RECORDS SUMMARY | 2024-05-10 18:49 | XMS_ITS | Encounter Summary ---
Author Organization [facility] Address [address] [facility] [place] [address] Care Team Providers Care Science Editor Name Role Phone Isidro Doll MD Unavailable [phone] Tomas Hyman MD Primary Care Provider [phone] Reason for Visit * Reason Onset Date Comments Referral Request 02/17/2014 Encounter Details Date Type Department Care Team (Late st Contact Info) Description 02/17/2014 Telephone [facility] - Rheumatology [address] [place] [address] Isidro Doll MD [address] [place] [address] Referral Request Social History Tobacco Use [...] & will reschedule for 02/24/14. [facility] to get referral addressed for next weeks visit. * Telephone Encounter - Camille Torrez MA - 02/19/2014 10:09 AM CDT He will have to reschedule his appointment if his PCP will not do the referral. Since we are the specialists, we will have to call [facility]. * Telephone Encounter - Hammad Rodriguez - [...] CDT SPECIALIST: dr christian phillips NPI(OPTIONAL): PHONE: [id number] FAX: [id number] DIAGNOSIS/CODE: eval for back and leg pain APPT DATE: 02/19/14 INSURANCE: [employer] ID #: [id number] documented in this encounter Plan of Treatment Upcoming Encounters Date Type Department Care Team (Late st Contact Info) Description 06/03/2024 1:00 PM NUCLEAR MEDICINE PET CT TECHNOLOGIST Appointment [facility] - Rheumatology [address] [place] [phone] 06/03/2024 2:00 [address]UCLEAR MEDICINE PET CT TECHNOLOGIST Office Visit [facility] - Rheumatology [address] [place] [address] [phone] Gloria Smith MD [address] [place] [phone] documented as of this encounter Visit Diagnoses Not on filedocumented in this encounter Care Teams Science Editor Relationship Specialty Start Date End Date Tomas Hyman MD [address] [facility] [address] [place] [address] PCP - General Family Medicine 12/31/13 05/09/18 Isidro Doll MD Rheumatology 02/09/11 documented as of this encounter
--- OUTSIDE RECORDS SUMMARY | 2024-05-10 18:49 | XMS_ITS | Encounter Summary ---
Author Organization [facility] Address [address] [place] [address] Care Team Providers Care Implement Mechanic Name Role Phone Isidro Heredia MD Unavailable Tomas Hyman MD Primary Care Provider [phone] Reason for Visit * Oncology Prior Authorization - Closed Specialty Diagnoses / Procedures Referred By Contsarahi t Referred To Contact Infusion Therapy Nurse Diagnoses Rheumatoid arthritis(714.0) ([facility]) Procedures [place] INJECTION TOCILIZUMAB 1 MG Isidro Heredia MD [address] [place] [address] [address] Referral ID Status Reason Start Date Expiration Date Visits Re quested Visits Authorized [id number] Closed 05/01/2013 04/29/2014 1 12 Encounter Details Date Type Department Care Team (Late st Contact Info) Description 04/10/2014 12:17 PM POLYMERIZATION ENGINEER - 04/10/2014 11:59 PM POLYMERIZATION ENGINEER Hospital Encounter [facility] Medical [facility] - Rheumatology [address] [place] [address] Isidro Heredia MD [address] [place] [address] Discharge Disposition: Home or Self [...] Comments Blood Pressure 149/87 04/10/2014 1:42 PM POLYMERIZATION ENGINEER Pulse 112 04/10/2014 1:42 PM POLYMERIZATION ENGINEER Temperature 37.2 ??C (98.9 ??F) 04/10/2014 1:42 PM CS T Respiratory Rate 18 04/10/2014 1:42 PM POLYMERIZATION ENGINEER Oxygen Saturation - - Inhaled Oxygen Concentration - - Weight - - Height - - Body Mass Index - - documented in this encounter Discharge Instructions * Discharge Instructions* Magnolia Pruett RN - 04/10/2014 1:52 PM POLYMERIZATION ENGINEER OR Rheumatology Post Infusion instructions You have [...] through Sunday 9-5 call the office at [phone] After hours or on the weekend call the exchange at [phone] If you have had lab work done [...] chosen [facility] as your provider. Magnolia Pruett, RN MERIZATION ENGINEER documented in this encounter Medications at Time of Discharge Medication Sig Dispensed Refills Start Date End Date Kartiwrusrx-Vcjpxujhs-Rs t C-Mn (GLUCOSAMINE CHONDR 1500 COMPLX PO) [...] 04/10/2014 1:53 PM CST JOSE Chalino Deng [id number] 04/10/2014 Diagnosis: Rheumatoid arthritis [714.0]. Pt denies symptoms of infection or antibiotic use, no open wounds, or recent surgery, or plans for surgery in the next couple of weeks. Pt is aware that we use the 0-10 pain scale to assess discomfort. 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 front desk agent pt signs consent for [...] Next treatment? 4 wks Magnolia Pruett RN MERIZATION ENGINEER documented in this encounter Plan of Treatment Upcoming Encounters Date Type Department Care Team (Late st Contact Info) Description 06/03/2024 1:00 PM POLYMERIZATION ENGINEER Appointment [facility] - Rheumatology [address] [place] [address] 06/03/2024 2:00 PM POLYMERIZATION ENGINEER Office Visit [facility] - Rheumatology [address] [place] [address] Gloria Smith MD [address] [place] [id number] documented as of this encounter Visit Diagnoses [...] 400MG [facility] [id number] with 0 WASTE $ Given 04/10/2014 1:51 PM POLYMERIZATION ENGINEER 800 mg 140 m L/hr documented in this encounter Care Teams Implement Mechanic Relationship Specialty Start Date End Date Tomas Hyman MD [address] [place] [address] PCP - General Family Medicine 12/31/13 05/09/18 Isidro Heredia MD Rheumatology 02/09/11 documented as of this encounter
--- OUTSIDE RECORDS SUMMARY | 2024-05-10 18:49 | XMS_ITS | Encounter Summary ---
Author Organization [facility] Address [address] [facility] [place] [address] Care Team Providers Care Pulp Screen Operator Name Role Phone Isidro Heredia MD Unavailable [phone] Tomas Hyman MD Primary Care Provider [phone] Reason for Visit * Treatment (Routine) - Closed Specialty Diagnoses / Procedures Referred By Contsarahi t Referred To Contact Pain Management Diagnoses Displacement of lumbar intervertebral disc without myelopathy Thoracic or lumbosacral neuritis or radiculitis, unspecified Procedures WI INJ,FORAMEN,L/S,1 LEVEL WI INJ,FORAMEN,L/S,[place] [address] [address] [facility] Care [address] [place] [address] Referral ID Status Reason Start Date Expiration Date Visits Re quested Visits Authorized [id number] Closed 03/10/2014 09/06/2014 6 6 Encounter Details Date Type Department Care Team (Latest Contact Info) Description 04/14/2014 9:45 AM ENROLLMENT PROCESSOR - 04/14/2014 9:48 AM ENROLLMENT PROCESSOR Hospital Encounter [facility] Pain Care [address] [place] [address] [place] [address] [place] [phone] Discharge Disposition: Home or Self Care Social [...] Sig Dispensed Refills Start Date End Date Fafeesydmpp-Xmvrwajuu-Cv t C-Mn (GLUCOSAMINE CHONDR 1500 COMPLX PO) [...] st Contact Info) Description 06/03/2024 1:00 PM ENROLLMENT PROCESSOR Appointment [facility] - Rheumatology [address] [place] [address] [phone] 06/03/2024 2:00 PM ENROLLMENT PROCESSOR Office Visit [facility] - Rheumatology [address] [place] [address] [phone] Gloria Smith MD [address] [place] [phone] documented as of this encounter Visit Diagnoses Not on filedocumented in this encounter Care Teams Pulp Screen Operator Relationship Specialty Start Date End Date Tomas Hymna MD [address] [facility] [address] [place] [address] PCP - General Family Medicine 12/31/13 05/09/18 Isidro Heredia MD Rheumatology 02/09/11 documented as of this encounter
--- OUTSIDE RECORDS SUMMARY | 2024-05-10 18:49 | XMS_ITS | Encounter Summary ---
Author Organization [facility] Address [address] [place] [address] Care Team Providers Care Motorcoach Driver Name Role Phone Isidro Heredia MD Unavailable [phone] Tomas Hyman MD Primary Care Provider [phone] Encounter Details Date Type Department Care Team (Late st Contact Info) Description 06/08/2014 Orders Only [facility] - Family Medicine [address] [place] [address] Isidro Heredia MD [address] [place] [address] Rheumatoid arthritis (HCC) Social History Tobacco [...] of this encounter Progress Notes * Isidro Hereida MD - 06/13/2014 3:18 PM CSTQuick Note: mtx ok meron L BLOCKER AND SAWYER * Rea Hagan MA - 06/08/2014 4:31 PM CST Pt here for infusion, Test ordered: cbc, cmp, sed rate L BLOCKER AND SAWYER documented in this encounter Plan of Treatment Upcoming Encounters Date Type Department Care Team (Late st Contact Info) Description 06/03/2024 1:00 PM JEWEL BLOCKER AND SAWYER Appointment [facility] - Rheumatology [address] [place] [address] [phone] 06/03/2024 2:00 PM JEWEL BLOCKER AND SAWYER Office Visit [facility] - Rheumatology [address] [place] [address] Gloria Smith MD [address] [place] [phone] documented as of this encounter Procedures Procedure Name Priority Date/Time Associated Diagnosis Comments ERYTHROCYTE SEDIMENTATION RATE Routine 06/08/2014 4:55 PM JEWEL BLOCKER AND SAWYER Rheumatoid Arthritis (Hcc) CBC W AUTO DIFFERENTIAL Routine 06/08/2014 4:55 PM JEWEL BLOCKER AND SAWYER Rheumatoid Arthritis (Hcc) COMPREHENSIVE METABOLIC PANEL Routine 06/08/2014 4:55 PM JEWEL BLOCKER AND SAWYER Rheumatoid Arthritis (Hcc) documented in this encounter Results * SED RATE WESTERGREN (06/08/2014 4:55 PM JEWEL BLOCKER AND SAWYER) Erythrocyte Sedimentation Rate Westergren 10 0 - 30 mm/hr [facility] INSURANCE BILL Blood specimen (specimen) BLOOD SPECIMEN / Unknown 06/08/2014 4:55 PM JEWEL BLOCKER AND SAWYER 06/08/2014 7:25 PM JEWEL BLOCKER AND SAWYER Narrative Resulting Agency Comment [facility] [address] [facility] ??[facility] [phone] Isidro Heredia MD LAB - HEMATOLOGY OR DERABLES [facility] INSURANCE BILL * (ABNORMAL) COMPREHENSIVE METABOLIC PANEL (06/08/2014 4:55 PM JEWEL BLOCKER AND SAWYER) Glucose 111(H) 65 - 99 mg/dL [facility] [...] BLOOD SPECIMEN / Unknown 06/08/2014 4:55 PM JEWEL BLOCKER AND SAWYER 06/08/2014 7:25 PM JEWEL BLOCKER AND SAWYER Narrative Resulting Agency Comment [facility] [address] ??[facility] [id number] Isidro Heredia MD LAB - CHEMISTRY ORD ERABLES [facility] INSURANCE BILL * (ABNORMAL) CBC W AUTO DIFFERENTIAL (06/08/2014 4:55 PM JEWEL BLOCKER AND SAWYER) WBC 9.3 3.4 - 10.8 x10E3/uL [facility] [...] BLOOD SPECIMEN / Unknown 06/08/2014 4:55 PM JEWEL BLOCKER AND SAWYER 06/08/2014 7:25 PM JEWEL BLOCKER AND SAWYER Narrative Resulting Agency Comment [facility] [address] ??[facility] [phone] Isidro Heredia MD LAB - HEMATOLOGY OR DERABLES [facility] INSURANCE BILL documented in this encounter Visit Diagnoses Diagnosis Rheumatoid arthritis(714.0) (HCC)- Primary Rheumatoid arthritis documented in this encounter Care Teams Motorcoach Driver Relationship Specialty Start Date End Date Tomas Hyman MD [address] [facility] [address] [place] [address] PCP - General Family Medicine 12/31/13 05/09/18 Isidro Heredia MD Rheumatology 02/09/11 documented as of this encounter
--- OUTSIDE RECORDS SUMMARY | 2024-05-10 18:49 | XMS_ITS | Encounter Summary ---
Author Organization [facility] Address [address] [place] [address] Care Team Providers Care Dermatopathologist Name Role Phone Isidro Heredia MD Unavailable [phone] Tomas Hyman MD Primary Care Provider [phone] Reason for Visit * Oncology Prior Authorization - Closed Specialty Diagnoses / Procedures Referred By Contsarahi t Referred To Contact Infusion Therapy Nurse Diagnoses Rheumatoid arthritis(714.0) ([facility]) Procedures [place] INJECTION TOCILIZUMAB 1 MG Isidro Heredia MD [address] [place] [address] [address] Referral ID Status Reason Start Date Expiration Date Visits Re quested Visits Authorized [id number] Closed 05/01/2013 04/29/2014 1 12 Encounter Details Date Type Department Care Team (Late st Contact Info) Description 02/12/2014 1:44 PM CDT - 02/12/2014 11:59 PM CDT Hospital Encounter [facility] Medical [facility] - Rheumatology [address] [place] [address] Isidro Heredia MD [address] [place] [address] Discharge Disposition: Home or Self [...] Foreman RN - 02/12/2014 4:03 PM CDT [place] Rheumatology Post Infusion instructions [...] Sunday through 01-02 call the office at [phone] After hours or on the weekend call the exchange at [phone] If you have had lab work done [...] Sig Dispensed Refills Start Date End Date Gtyvobthqmt-Rcnyqljun-Ws t C-Mn (GLUCOSAMINE CHONDR 1500 COMPLX PO) [...] NaCl 0.9 % 100 mLIndications:Rheumatoid arthritis(714.0) ([facility]) Pt to receive IV infusion 800mg Actemra/100cc0.9%norm al saline, per nasir Avila's office practice of Actemra 8mg/kg over 60 minutes and the Actemra schedule; first dose, then every 4 weeks thereafter, unless further orders received from . Exp 09/04/2014 09/04/2013 09/04/2014 documented as of this encounter Progress Notes * Carlos Foreman RN - 02/12/2014 3:15 PM CDT JOSE Deng [id number] 02/12/2014 Diagnosis: Rheumatoid arthritis [714.0]. Patient questionnaire [...] st Contact Info) Description 06/03/2024 1:00 PM FRAMING MILL OPERATOR Appointment [facility] - Rheumatology [address] [place] [address] 06/03/2024 2:00 PM FRAMING MILL OPERATOR Office Visit [facility] - Rheumatology [address] [place] [address], [place] [address] Gloria Smith MD [address] [place] [phone] documented as of this encounter Visit Diagnoses [...] 0945, 2 vials used of Actemra 400MG [facility] 67[address]-918-23 with 0 WASTE $ Given 02/12/2014 3:10 PM CDT 800 mg 100 m L/hr documented in this encounter Care Teams Dermatopathologist Relationship Specialty Start Date End Date Tomas Hyman MD [address] [facility] [address] [place] [address] PCP - General Family Medicine 12/31/13 05/09/18 Isidro Heredia MD Rheumatology 02/09/11 documented as of this encounter
--- OUTSIDE RECORDS SUMMARY | 2024-05-10 18:49 | XMS_ITS | Encounter Summary ---
Author Organization [facility] Address [address] [facility] [place] [address] Care Team Providers Care Ore Smelter Name Role Phone Isidro Heredia MD Unavailable [phone] Tomas Hyman MD Primary Care Provider [phone] Encounter Details Date Type Department Care Team (Latest Contact Info) Description 04/14/2014 9:49 AM TOBACCO GRADER - 04/14/2014 11:59 PM TOBACCO GRADER Hospital Encounter [facility] Pain Care [address] [place] [address] [place] [address] [place] [phone] Discharge Disposition: Home or Self Care Social [...] Comments Blood Pressure 146/96 04/14/2014 10:33 AM TOBACCO GRADER Pulse 93 04/14/2014 10:33 AM TOBACCO GRADER Temperature - - Respiratory Rate 16 04/14/2014 10:33 AM TOBACCO GRADER Oxygen Saturation 98% 04/14/2014 10:33 AM TOBACCO GRADER Inhaled Oxygen Concentration - - Weight - - Height - - Body Mass Index - - documented in this encounter Discharge Instructions * Patient Instructions* Ashlie Henao RN - 04/14/2014 10:06 AM TOBACCO GRADER [facility] Procedure Center Pain Discharge Instructions [...] headache, or any other problems, please call [phone] or after hours callDr. Mirza at [phone] and tell them your physician's name. The exchange will alert the physician location worker. If sedation is given: No sedation given. For Your Next Visit: No additional instructions. Other Instructions: May remove band-aid in 12 Hours. Return [place] 2 in 1 week. Patient Signature: Date: RN Signature: Date: CCO GRADER documented in this encounter Medications at Time of Discharge Medication Sig Dispensed Refills Start Date End Date Nyevcixzgbo-Rpyqnunka-Pe t C-Mn (GLUCOSAMINE CHONDR 1500 COMPLX PO) [...] Coumidin, Plavix or other blood thinners. Responsible class c truck driver is not needed due to [...] Follow Up: 1 week Alejandro Mirza MD CCO GRADER documented in this encounter Plan of Treatment Upcoming Encounters Date Type Department Care Team (Late st Contact Info) Description 06/03/2024 1:00 PM TOBACCO GRADER Appointment [facility] - Rheumatology [address] [place] [address] 06/03/2024 2:00 PM TOBACCO GRADER Office Visit [facility] - Rheumatology [address] [place] [address] Gloria Smith MD [address] [place] [phone] documented as of this encounter Procedures Procedure Name Priority Date/Time Associated Diagnosis Comments PAIN MANAGEMENT PROCEDURE TIME Routine 04/14/2014 10:24 AM TOBACCO GRADER Displacement Of Lumbar Intervertebral Disc Without Myelopathy Thoracic or lumbosacral neuritis or radiculitis, unspecified documented in this encounter Results * PAIN MANAGEMENT PROCEDURE TIME (04/14/2014 10:24 AM TOBACCO GRADER) Anatomical Region Laterality Modality X-Ray Angiograph y Narrative 04/14/2014 10:32 AM TOBACCO GRADER Alejandro Mirza MD ? 04/14/2014 10:32 AM [...] Coumidin, Plavix or other blood thinners. ??Responsible class c truck driver is not needed due to [...] on Coumidin, Plavix or other bloodthinners. Responsible class c truck driver is not needed due to the patient not havingsedation. The patient was placed in a prone position and was prepped withChloraprep. Procedure: Lidocaine 1% was injected with a 25 gauge needle at Y7aprbzrpof placement with the guided fluoroscopy. An 18 [...] Admin. by Other Provider 04/14/2014 10:16 AM TOBACCO GRADER 80 mg documented in this encounter Care Teams Ore Smelter Relationship Specialty Start Date End Date Tomas Hyman MD [address] [place] [address] PCP - General Family Medicine 12/31/13 05/09/18 Isidro Heredia MD Rheumatology 02/09/11 documented as of this encounter
--- OUTSIDE RECORDS SUMMARY | 2024-05-10 18:49 | XMS_ITS | Encounter Summary ---
Author Organization [facility] Address [address] [facility] [place] [address] Care Team Providers Care Gas And Oil Servicer Name Role Phone Nolberto Nicole MD Primary Care Provider [phone] Isidro Heredia MD Unavailable [phone] Encounter Details Date Type Department Care Team (Late st Contact Info) Description 11/12/2013 Orders Only [facility] - Rheumatology [address] [place] [address] [phone] Isidro Heredia MD [address] [place] [address] Rheumatoid arthritis (HCC) Social History Tobacco [...] Contact Info) Description 06/03/2024 1:00 PM UMBRELLA FINISHER Appointment [facility] - Rheumatology [address] [place] [address] 06/03/2024 2:00 PM UMBRELLA FINISHER Office Visit [facility] - Rheumatology [address] [place] [address] Gloria Smith MD [address] [place] [phone] documented as of this encounter Procedures [...] 6:13 PM CDT Narrative Resulting Agency Comment [facility] ??[facility] [phone] Isidro Heredia MD LAB - CHEMISTRY ORD ERABLES Performing Organization Address City/[facility] Co de Phone Number [facility] INSURANCE BILL * SED RATE WESTERGREN (11/12/2013 4:15 PM CDT) Erythrocyte Sedimentation Rate Westergren 7 0 - 30 mm/hr [facility] INSURANCE BILL Blood specimen (specimen) BLOOD SPECIMEN / Unknown 11/12/2013 4:15 PM CDT 11/12/2013 6:13 PM CDT Narrative Resulting Agency Comment [facility] ??[facility] [phone] Isidro Heredia MD LAB - HEMATOLOGY OR DERABLES Performing Organization Address City/State/[facility] Co de Phone Number [facility] INSURANCE [...] PM CDT Narrative Resulting Agency Comment [facility] [address] ??[facility] [phone] Isidro Heredia MD LAB - HEMATOLOGY OR DERABLES [facility] INSURANCE BILL documented in this encounter Visit Diagnoses Diagnosis Rheumatoid arthritis(714.0) (HCC)- Primary Rheumatoid arthritis documented in this encounter Care Teams Gas And Oil Servicer Relationship Specialty Start Date End Date Nolberto Nicole MD PCP - General 07/21/08 12/30/13 Isidro Heredia MD Rheumatology 02/09/11 documented as of this encounter
--- OUTSIDE RECORDS SUMMARY | 2024-05-10 18:49 | XMS_ITS | Encounter Summary ---
Author Organization [facility] Address [address] [place] [address] Care Team Providers Care Credit Control Manager Name Role Phone Nolberto Nicole MD Primary Care Provider Isidro Heredia MD Unavailable [phone] Reason for Visit * Reason Comments Rheumatoid Arthritis * Consult, Test & Treat (Routine) - Closed Specialty Diagnoses / Procedures Referred By Contsarahi t Referred To Contact Diagnoses Rheumatoid arthritis(714.0) (HCC) Procedures SC OFFICE VISIT DURING HOURS Nolberto Nicole MD [address] [place] [address] Isidro Heredia MD [address] [place] [address] Referral ID Status Reason Start Date Expiration Date Visits Re quested Visits Authorized [id number] Closed 03/14/2013 09/11/2013 1 6 Encounter Details Date Type Department Care Team (Late st Contact Info) Description 08/07/2013 2:30 PM CDT Office Visit [facility] Medical [facility] - Rheumatology [address] [place] [address] Isidro Heredia MD [address] [place] [address] Rheumatoid arthritis (HCC) (Primary Dx); [...] PO) Take by mouth once daily. ??? Aothnylxoxi-Qwfwhqapi-Kuq C-Mn (GLUCOSAMINE CHONDR 1500 COMPLX PO) Take [...] st Contact Info) Description 06/03/2024 1:00 PM AGRICULTURE MANAGER Appointment [facility] - Rheumatology [address] [place] [address] 06/03/2024 2:00 PM AGRICULTURE MANAGER Office Visit [facility] - Rheumatology [address] [place] [address] [phone] Gloria Smith MD [address] [place] [phone] documented as of this encounter Visit Diagnoses Diagnosis Rheumatoid arthritis(714.0) (HCC)- Primary Rheumatoid arthritis Chronic pain syndrome documented in this encounter Care Teams Credit Control Manager Relationship Specialty Start Date End Date Nolberto Nicole MD PCP - General 07/21/08 12/30/13 Isidro Heredia MD Rheumatology 02/09/11 documented as of this encounter
--- OUTSIDE RECORDS SUMMARY | 2024-05-10 18:49 | XMS_ITS | Encounter Summary ---
Author Organization [facility] Address [address] [facility] [place] [address] Care Team Providers Care Grain I Farmworker Name Role Phone Nolberto Nicole MD Primary Care Provider [phone] Isidro Heredia MD Unavailable [phone] Reason for Visit * Reason Onset Date Comments Rheumatoid Arthritis 12/30/2013 Pain Back 12/30/2013 Lower Extremity Problem 12/30/2013 Encounter Details Date Type Department Care Team (Late st Contact Info) Description 12/30/2013 Telephone [facility] - Rheumatology [address] [place] [address] Isidro Heredia MD [address] [place] [address] Rheumatoid Arthritis; Pain Back; Lower Extremity [...] Contact Info) Description 06/03/2024 1:00 PM MANAGER HOUSE Appointment [facility] - Rheumatology [address] [place] [address] 06/03/2024 2:00 PM MANAGER HOUSE Office Visit [facility] - Rheumatology [address] [place] [address] Gloria Smith MD [address] [place] [phone] documented as of this encounter Visit Diagnoses Not on filedocumented in this encounter Care Teams Grain I Farmworker Relationship Specialty Start Date End Date Nolberto Nicole MD PCP - General 07/21/08 12/30/13 Isidro Heredia MD Rheumatology 02/09/11 documented as of this encounter
--- OUTSIDE RECORDS SUMMARY | 2024-05-10 18:49 | XMS_ITS | Encounter Summary ---
Author Organization [facility] Address [address] [facility] [place] [address] Care Team Providers Care Photographic Hand Developer Name Role Phone Nolberto Nicole MD Primary Care Provider [phone] Isidro Heredia MD Unavailable [phone] Reason for Visit * Reason Comments Refill Request Encounter Details Date Type Department Care Team (Late Contact Info) Description 07/17/2013 Refill [facility] - Rheumatology [address] [place] [address] Isidro Heredia MD [address] [place] [address] Refill Request [...] (Late Contact Info) Description 06/03/2024 1:00 PM HUMAN RESOURCES BENEFITS MANAGER Appointment [facility] - Rheumatology [address] [place] [address] 06/03/2024 2:00 PM HUMAN RESOURCES BENEFITS MANAGER Office Visit [facility] - Rheumatology [address] [place] [address] Gloria Smith MD [address] [place] [address] [place] [phone] documented as of this encounter Visit Diagnoses Not on filedocumented in this encounter Care Teams Photographic Hand Developer Relationship Specialty Start Date End Date Nolberto Nicole MD PCP - General 07/21/08 12/30/13 Isidro Heredia MD Rheumatology 02/09/11 documented as of this encounter
--- OUTSIDE RECORDS SUMMARY | 2024-05-10 18:49 | XMS_ITS | Encounter Summary ---
Author Organization [facility] Address [address] [place] [address] Care Team Providers Care Medical Aides Teacher Name Role Phone Nolberto Nicole MD Primary Care Provider [phone] Isidro Heredia MD Unavailable [phone] Reason for Visit * Treatment (Routine) - Closed Specialty Diagnoses / Procedures Referred By Lawrence shah Referred To Contact Infusion Therapy Nurse Diagnoses Rheumatoid arthritis(714.0) ([facility]) Procedures IA INJECTION TOCILIZUMAB 1 MG Isidro Heredia MD [address] [place] [address] Referral ID Status Reason Start Date Expiration Date Visits Re quested Visits Authorized [id number] Closed 05/01/2013 04/29/2014 1 12 Encounter Details Date Type Department Care Team (Late st Contact Info) Description 11/12/2013 3:33 PM CDT - 11/12/2013 11:59 PM CDT Hospital Encounter [facility] - Rheumatology [address] [place] [address] Isidro Heredia MD [address] [place] [address] Discharge Disposition: Home or Self [...] Sunday through Sunday- call the office at [phone] After hours or on the weekend call the exchange at [phone] If you have had lab work done [...] Sig Dispensed Refills Start Date End Date Balkunvaeky-Zuqztzfod-Df t C-Mn (GLUCOSAMINE CHONDR 1500 COMPLX PO) [...] oxyCODONE-acetaminophen (PERCOCET) 5-325 MG tabletIndications:Rheuma toid arthritis(714.0) ([facility]) Take 1 Tab by mouth [...] st Contact Info) Description 06/03/2024 1:00 PM CNC SERVICE ENGINEER Appointment [facility] - Rheumatology [address] [place] [address] [phone] 06/03/2024 2:00 PM CNC SERVICE ENGINEER Office Visit [facility] - Rheumatology [address] [place] [address] Gloria Smith MD [address] [place] [phone] documented as of this encounter Visit Diagnoses Diagnosis Rheumatoid arthritis(714.0) ([facility])- Primary Rheumatoid arthritis documented in [...] documented in this encounter Care Teams Medical Aides Teacher Relationship Specialty Start Date End Date Nolberto Nicole MD PCP - General 07/21/08 12/30/13 Isidro Heredia MD Rheumatology 02/09/11 documented as of this encounter
--- OUTSIDE RECORDS SUMMARY | 2024-05-10 18:49 | XMS_ITS | Encounter Summary ---
Author Organization [facility] Address [address] [facility] [place] [address] Care Team Providers Care Light Armored Reconnaissance Officer Name Role Phone Isidro Heredia MD Unavailable Tomas Hyman MD Primary Care Provider Reason for Visit * Reason Comments Rheumatoid Arthritis * Evaluate & Treat (Routine) - Closed Specialty Diagnoses / Procedures Referred By Lawrence shah Referred To Contact Diagnoses Rheumatoid arthritis(714.0) (HCC) Procedures [place] OFFICE VISIT DURING HOURS Tomas Hyman MD [address] [facility] [address] [place] [address] Isidro Heredia MD [address] [place] [address] Referral ID Status Reason Start Date Expiration Date Visits Re quested Visits Authorized [id number] Closed 02/10/2014 02/10/2015 6 6 Encounter Details Date Type Department Care Team (Late st Contact Info) Description 06/08/2014 4:45 PM INFORMATION SYSTEMS OPERATOR Office Visit [facility] Medical [facility] - Rheumatology [address] [place] [address] Isidro Heredia MD [address] [place] [address] Rheumatoid arthritis (HCC) (Primary Dx); Chronic [...] Comments Blood Pressure 141/94 06/08/2014 5:26 PM INFORMATION SYSTEMS OPERATOR Pulse 107 06/08/2014 5:26 PM INFORMATION SYSTEMS OPERATOR Temperature - - Respiratory Rate - - Oxygen Saturation - - Inhaled Oxygen Concentration - - Weight 115.7 kg (255 lb) 06/08/2014 5:26 PM INFORMATION SYSTEMS OPERATOR Height - - Body Mass Index 36.59 05/11/2014 9:22 AM INFORMATION SYSTEMS OPERATOR documented in this encounter Progress Notes [...] PO) Take by mouth once daily. ??? Qwfvoselodv-Etswyftvg-Cxs C-Mn (GLUCOSAMINE CHONDR 1500 COMPLX PO) Take [...] Follow up in office in 4 weeks RMATION SYSTEMS OPERATOR documented in this encounter Plan of Treatment Upcoming Encounters Date Type Department Care Team (Late st Contact Info) Description 06/03/2024 1:00 PM INFORMATION SYSTEMS OPERATOR Appointment [facility] - Rheumatology [address] [place] [address] 06/03/2024 2:00 PM INFORMATION SYSTEMS OPERATOR Office Visit [facility] - Rheumatology [address] [place] [address] Gloria Smith MD [address] [place] [phone] documented as of this encounter Visit Diagnoses Diagnosis Rheumatoid arthritis(714.0) ([facility])- Primary Rheumatoid arthritis Chronic pain syndrome Lumbar radiculopathy Thoracic or lumbosacral neuritis or radiculitis, unspecified documented in this encounter Care Teams Light Armored Reconnaissance Officer Relationship Specialty Start Date End Date Tomas Hyman MD [address] [facility] [address] [place] [address] PCP - General Family Medicine 12/31/13 05/09/18 Isidro Heredia MD Rheumatology 02/09/11 documented as of this encounter
--- OUTSIDE RECORDS SUMMARY | 2024-05-10 18:49 | XMS_ITS | Encounter Summary ---
Author Organization [facility] Address [address] [place] [address] Care Team Providers Care Agricultural Mechanic Name Role Phone Nolberto Nicole MD Primary Care Provider [phone] Isidro Heredia MD Unavailable [phone] Reason for Visit * Reason Onset Date Comments Encounter Opened In Error 09/04/2013 Encounter Details Date Type Department Care Team (Late st Contact Info) Description 09/04/2013 Orders Only [facility] Medical [facility] - Rheumatology [address] [place] [address] Isidro Heredia MD [address] [place] [address] ERRONEOUS ENCOUNTER--DISREGARD Social History Tobacco Use [...] st Contact Info) Description 06/03/2024 1:00 PM HACK DRIVER Appointment [facility] - Rheumatology [address] [place] [address] 06/03/2024 2:00 PM HACK DRIVER Office Visit [facility] - Rheumatology [address] [place] [address] Gloria Smith MD [address] [place] [phone] documented as of this encounter Visit Diagnoses Diagnosis ERRONEOUS ENCOUNTER--DISREGARD- Primary documented in this encounter Care Teams Agricultural Mechanic Relationship Specialty Start Date End Date Nolberto Nicole MD PCP - General 07/21/08 12/30/13 Isidro Heredia MD Rheumatology 02/09/11 documented as of this encounter
--- OUTSIDE RECORDS SUMMARY | 2024-05-10 18:49 | XMS_ITS | Encounter Summary ---
Author Organization [facility] Address [address] [place] [address] Care Team Providers Care Furniture Removalist'S Assistant Name Role Phone Nolberto Nicole MD [...] Referred To Contact Diagnoses Rheumatoid arthritis(714.0) ([facility]) Procedures [place] OFFICE VISIT DURING HOURS Nolberto Nicole MD [address] [place] [address] Isidro Heredia MD [address] [place] [address] Referral ID Status Reason Start Date Expiration Date Visits Re quested Visits Authorized [id number] Closed 03/14/2013 09/11/2013 1 6 Encounter Details Date Type Department Care Team (Late st Contact Info) Description 09/04/2013 3:15 PM CDT Office Visit [facility] [employer] - A New Musical [facility] - Rheumatology [address] [place] [address] Isidro Heredia MD [address] [place] [address] Rheumatoid arthritis (HCC) (Primary Dx); [...] PO) Take by mouth once daily. ??? Ahnmmnzwpuo-Hiyifonep-Ufr C-Mn (GLUCOSAMINE CHONDR 1500 COMPLX PO) Take [...] st Contact Info) Description 06/03/2024 1:00 PM ACCREDITATION MANAGER Appointment [facility] - Rheumatology [address] [place] [address] [phone] 06/03/2024 2:00 PM ACCREDITATION MANAGER Office Visit [facility] - Rheumatology [address] [place] [address] Gloria Smith MD [address] [place] [phone] Scheduled Orders Name Type Priority Associated Diagnoses Orde r Schedule TSH Lab Routine Fatigue Ordered: 09/04/2013 T4 TOTAL Lab Routine Fatigue Ordered: 09/04/2013 documented as of this encounter Visit Diagnoses Diagnosis Rheumatoid arthritis(714.0) ([facility])- Primary Rheumatoid arthritis Fatigue Other malaise and fatigue Chronic pain syndrome Subacromial bursitis Other specified disorders of rotator cuff syndrome of shoulder and allied disorders documented in this encounter Care Teams Furniture Removalist'S Assistant Relationship Specialty Start Date End Date Nolberto Nicole MD PCP - General 07/21/08 12/30/13 Isidro Heredia MD Rheumatology 02/09/11 documented as of this encounter
--- OUTSIDE RECORDS SUMMARY | 2024-05-10 18:49 | XMS_ITS | Encounter Summary ---
Author Organization [facility] Address [address] [facility] [place] [address] Care Team Providers Care Outreach Consultant Name Role Phone Isidro Heredia MD Unavailable [phone] Tomas Hyman MD Primary Care Provider Encounter Details Date Type Department Care Team (Latest Contact Info) Description 03/24/2014 10:24 AM LABORER BROODER FARM - 03/24/2014 11:59 PM LABORER BROODER FARM Hospital Encounter [facility] Pain Care [address] [place] [address] [place] [address] [place] [phone] Discharge Disposition: Home or Self Care Social [...] Comments Blood Pressure 150/88 03/24/2014 11:20 AM LABORER BROODER FARM Pulse 97 03/24/2014 11:20 AM LABORER BROODER FARM Temperature - - Respiratory Rate 16 03/24/2014 11:20 AM LABORER BROODER FARM Oxygen Saturation 97% 03/24/2014 11:20 AM LABORER BROODER FARM Inhaled Oxygen Concentration - - Weight - - Height - - Body Mass Index - - documented in this encounter Discharge Instructions * Patient Instructions* Nena Pond RN - 03/24/2014 10:39 AM LABORER BROODER [employer]ARM [facility] Procedure [...] headache, or any other problems, please call [phone] or after hours callDr. Mirza at [phone] and tell them your physician's name. The exchange will alert the physician mason tender. If sedation is given: No sedation given. For Your Next Visit: No additional instructions. Other Instructions: May remove band-aid in 12 Hours. Return in two weeks for follow up. Patient Signature: Date: RN Signature: Date: RER BROODER FARM documented in this encounter Medications at Time of Discharge Medication Sig Dispensed Refills Start Date End Date Gyehxzqfxrl-Kunfqcwwn-Pq t C-Mn (GLUCOSAMINE CHONDR 1500 COMPLX PO) [...] identified, and marked by Dr. Mirza. Responsible rickshaw driver is not needed due [...] Add Levels Lumb/Sac, Fluoro. Alejandro Mirza MD RER BRO[employer]ER FARM documented in this encounter Plan of Treatment Upcoming Encounters Date Type Department Care Team (Late st Contact Info) Description 06/03/2024 1:00 PM LABORER BROODER FARM Appointment [facility] - Rheumatology [address] [place] [address] [phone] 06/03/2024 2:00 PM LABORER BROODER FARM Office Visit [facility] - Rheumatology [address] [place] [address] Gloria Smith MD [address] [place] [phone] documented as of this encounter Procedures Procedure Name Priority Date/Time Associated Diagnosis Comments PAIN MANAGEMENT PROCEDURE TIME Routine 03/24/2014 11:17 AM LABORER BROODER FARM Displacement Of Lumbar Intervertebral Disc Without Myelopathy Thoracic or lumbosacral neuritis or radiculitis, unspecified documented in this encounter Results * PAIN MANAGEMENT PROCEDURE TIME (03/24/2014 11:17 AM LABORER BRO[employer]ARM) Anatomical Region Laterality Modality X-Ray Angiograph y Narrative 03/24/2014 11:38 AM LABORER BRO[employer]ARM Alejandro Mirza MD ? 03/24/2014 11:38 AM [...] identified, and marked by Dr. Mirza. ??Responsible rickshaw driver is not needed due [...] Admin. by Other Provider 03/24/2014 11:03 AM LABORER BROODER FARM 10 mg documented in this encounter Care Teams Outreach Consultant Relationship Specialty Start Date End Date Tomas Hyman MD [address] [facility] [address] [place] [address] PCP - General Family Medicine 12/31/13 05/09/18 Isidro Heredia MD Rheumatology 02/09/11 documented as of this encounter
--- OUTSIDE RECORDS SUMMARY | 2024-05-10 18:49 | XMS_ITS | Encounter Summary ---
Author Organization [facility] Address [address] [facility] [place] [address] Care Team Providers Care Retail Account Manager Name Role Phone Isidro Heredia MD Unavailable [phone] Tomas Hyman MD Primary Care Provider [phone] Reason for Visit * Reason Onset Date Comments Letter for School or Work 03/13/2014 Encounter Details Date Type Department Care Team (Late st Contact Info) Description 03/13/2014 Telephone [facility] - Rheumatology [address] [place] [address] Isidro Heredia MD [address] [place] [address] Letter for School or Work Social [...] 3:26 PM CST Informed pt of message YMASTER * Telephone Encounter - Rea Hagan MA - 03/13/2014 3:18 PM CST Please let pt know his letter will be at the front line leader for burr picker. YMASTER * Telephone Encounter - Hai Rodriguezdoreen - 03/13/2014 2:32 PM CST wrote letter for pt's employer, but it didn't state that it was related to RA. Pt needs a revised letter that states pt's condition is related to his RA. Pt notes he wants to burr picker revised letter on 03/17/14. Please call with any questions at work number if calling within next couple of hours; otherwise call pt on mobile number. YMASTER documented in this encounter Plan of Treatment Upcoming Encounters Date Type Department Care Team (Late st Contact Info) Description 06/03/2024 1:00 PM CADDYMASTER Appointment [facility] - Rheumatology [address] [place] [address] 06/03/2024 2:00 PM CADDYMASTER Office Visit [facility] - Rheumatology [address] [place] [address] Gloria Smith MD [address] [place] [phone] documented as of this encounter Visit Diagnoses Not on filedocumented in this encounter Care Teams Retail Account Manager Relationship Specialty Start Date End Date Tomas Hyman MD [address] [facility] [address] [place] [address] PCP - General Family Medicine 12/31/13 05/09/18 Isidro Heredia MD Rheumatology 02/09/11 documented as of this encounter
--- OUTSIDE RECORDS SUMMARY | 2024-05-10 18:49 | XMS_ITS | Encounter Summary ---
Author Organization [facility] Address [address] [place] [address] Care Team Providers Care Thermal Cutting Machine Operator Name Role Phone Nolberto Nicole MD Primary Care Provider [phone] Isidro Heredia MD Unavailable [phone] Reason for Visit * Treatment (Routine) - Closed Specialty Diagnoses / Procedures Referred By Lawrence shah Referred To Contact Infusion Therapy Nurse Diagnoses Rheumatoid arthritis(714.0) ([facility]) Procedures SD INJECTION TOCILIZUMAB 1 MG Isidro Heredia MD [address] [place] [address] Referral ID Status Reason Start Date Expiration Date Visits Re quested Visits Authorized [id number] Closed 05/01/2013 04/29/2014 1 12 Encounter Details Date Type Department Care Team (Late st Contact Info) Description 08/07/2013 1:28 PM CDT - 08/07/2013 11:59 PM CDT Hospital Encounter [facility] - Rheumatology [address] [place] [address] Isidro Heredia MD [address] [place] [address] Discharge Disposition: Home or Self [...] Marx RN - 08/07/2013 2:06 PM CDT [place] Rheumatology Post Infusion instructions [...] through Sunday 9-5 call the office at [phone] After hours or on the weekend call the exchange at [phone] If you have had lab work done [...] [facility] as your provider. Camryn Marx RN * Discharge Instructions* Document, Scanned - 08/20/2013 10:42 PM CDT documented in this encounter Medications at Time of Discharge Medication Sig Dispensed Refills Start Date End Date Ejsaxryhpyv-Oqxjxaxsy-Wm t C-Mn (GLUCOSAMINE CHONDR 1500 COMPLX PO) [...] - 08/07/2013 2:09 PM CDT JOSE Deng [id number] 08/07/2013 Diagnosis: Rheumatoid arthritis [714.0]. BP 130/80 [...] st Contact Info) Description 06/03/2024 1:00 PM PORTFOLIO ANALYST Appointment [facility] - Rheumatology [address] [place] [address] [phone] 06/03/2024 2:00 PM PORTFOLIO ANALYST Office Visit [facility] - Rheumatology [address] [place] [address] Gloria Smith MD [address] [place] [phone] documented as of this encounter Visit [...] mL/hr documented in this encounter Care Teams Thermal Cutting Machine Operator Relationship Specialty Start Date End Date Nolberto Nicole MD PCP - General 07/21/08 12/30/13 Isidro Heredia MD Rheumatology 02/09/11 documented as of this encounter
--- OUTSIDE RECORDS SUMMARY | 2024-05-10 18:49 | XMS_ITS | Encounter Summary ---
Author Organization [facility] Address [address] [facility] [place] [address] Care Team Providers Care Propulsion Systems Engineer Name Role Phone Isidro Heredia MD Unavailable [phone] Tomas Hyman MD Primary Care Provider [phone] Reason for Visit * Reason Comments Refill Request Encounter Details Date Type Department Care Team (Late Contact Info) Description 01/25/2014 Refill [facility] - Rheumatology [address] [place] [address] Isidro Heredia MD [address] [place] [address] Refill Request Social History Tobacco Use [...] (Late Contact Info) Description 06/03/2024 1:00 PM COMPLIANCE INTERN Appointment [facility] - Rheumatology [address] [place] [address] 06/03/2024 2:00 PM COMPLIANCE INTERN Office Visit [facility] Rheumatology [address] [place] [address] Gloria Smith MD [address] [place] [address] [address] documented as of this encounter Visit Diagnoses Not on filedocumented in this encounter Care Teams Propulsion Systems Engineer Relationship Specialty Start Date End Date Tomas Hyman MD [address] [place] [address] PCP - General Family Medicine 12/31/13 05/09/18 Isidro Heredia MD Rheumatology 02/09/11 documented as of this encounter
--- OUTSIDE RECORDS SUMMARY | 2024-05-10 18:49 | XMS_ITS | Encounter Summary ---
Author Organization [facility] Address [address] [facility] [place] [address] Care Team Providers Care Distribution Tech Name Role Phone Isidro Heredia MD Unavailable [phone] Tomas Hyman MD Primary Care Provider [phone] Reason for Visit * Reason Comments Arthritis Encounter Details Date Type Department Care Team (Latest Contact Info) Description 02/12/2014 2:00 PM CDT Procedure visit [facility] Family Medicine [address] [place] [address] Rheumatoid arthritis (HCC) Social History Tobacco Use [...] Contact Info) Description 06/03/2024 1:00 PM TANK PUMPER PANELBOARD Appointment [facility] - Rheumatology [address] [place] [address] 06/03/2024 2:00 PM TANK PUMPER PANELBOARD Office Visit [facility] - Rheumatology [address] [place], [place] [phone] Gloria Smith MD [address] [place] [phone] documented as of this encounter Procedures Procedure [...] arthritis documented in this encounter Care Teams Distribution Tech Relationship Specialty Start Date End Date Tomas Hyman MD [address] [facility] [address] [place] [address] PCP - General Family Medicine 12/31/13 05/09/18 Isidro Heredia MD Rheumatology 02/09/11 documented as of this encounter
--- OUTSIDE RECORDS SUMMARY | 2024-05-10 18:49 | XMS_ITS | Encounter Summary ---
Author Organization [facility] Address [address] [facility] [place] [address] Care Team Providers Care Cna Pct Name Role Phone Nolberto Nicole MD Primary Care Provider [phone] Isidro Heredia MD Unavailable Reason for Visit * Treatment (Routine) - Closed Specialty Diagnoses / Procedures Referred By Lawrence shah Referred To Contact Infusion Therapy Nurse Diagnoses Rheumatoid arthritis(714.0) ([facility]) Procedures [place] INJECTION TOCILIZUMAB 1 MG Isidro Heredia MD [address] [place] [address] Referral ID Status Reason Start Date Expiration Date Visits Re quested Visits Authorized [id number] Closed 05/01/2013 04/29/2014 1 12 Encounter Details Date Type Department Care Team (Late st Contact Info) Description 12/12/2013 8:50 AM CDT - 12/12/2013 11:59 PM CDT Hospital Encounter [facility] - Rheumatology [address] [place] [address] Isidro Heredia MD [address] [place] [address] Discharge Disposition: Home or Self [...] Sierra RN - 12/12/2013 9:29 AM CDT [place] Rheumatology Post Infusion instructions You [...] Sunday through Sunday-5 call the office at [phone] After hours or on the weekend call the exchange at [phone] If you have had lab work done [...] chosen [facility] as your provider. Manisha Sierra RN documented in this encounter Medications at Time of Discharge Medication Sig Dispensed Refills Start Date End Date Hvttqhomcru-Cehczmmzr-Xz t C-Mn (GLUCOSAMINE CHONDR 1500 COMPLX PO) [...] 5-325 MG tabletIndications:Rheuma toid arthritis(714.0) ([facility]) Take 1 Tab by mouth [...] - 12/12/2013 10:57 AM CDT JOSE Deng [id number] 12/12/2013 Diagnosis: Rheumatoid arthritis [714.0]. Patient questionnaire [...] st Contact Info) Description 06/03/2024 1:00 PM BENZENE OPERATOR Appointment [facility] - Rheumatology [address] [place] [address] 06/03/2024 2:00 PM BENZENE OPERATOR Office Visit [facility] - Rheumatology [address] [place] [address] Gloria Smith MD [address] [place] [phone] documented as of this encounter Visit Diagnoses Diagnosis Rheumatoid arthritis(714.0) ([facility])- Primary Rheumatoid arthritis documented in [...] mL/hr documented in this encounter Care Teams Cna Pct Relationship Specialty Start Date End Date Nolberto Nicole MD PCP - General 07/21/08 12/30/13 Isidro Heredia MD Rheumatology 02/09/11 documented as of this encounter
--- OUTSIDE RECORDS SUMMARY | 2024-05-10 18:49 | XMS_ITS | Encounter Summary ---
Author Organization [facility] Address [address] [place] [address] Care Team Providers Care Lead Scientist Name Role Phone Isidro Heredia MD Unavailable [phone] Tomas Hymna MD Primary Care Provider [phone] Encounter Details Date Type Department Care Team (Latest Contact Info) Description 03/10/2014 10:19 AM DOCUMENT MANAGEMENT CONSULTANT - 03/10/2014 11:59 PM DOCUMENT MANAGEMENT CONSULTANT Hospital Encounter [facility] Pain Care [address] [place] [address] [place] [address] [place] [phone] Discharge Disposition: Home or Self Care Social [...] Comments Blood Pressure 153/106 03/10/2014 11:12 AM DOCUMENT MANAGEMENT CONSULTANT Pulse 110 03/10/2014 11:12 AM DOCUMENT MANAGEMENT CONSULTANT Temperature - - Respiratory Rate 16 03/10/2014 11:12 AM DOCUMENT MANAGEMENT CONSULTANT Oxygen Saturation 98% 03/10/2014 11:12 AM DOCUMENT MANAGEMENT CONSULTANT Inhaled Oxygen Concentration - - Weight - - Height - - Body Mass Index - - documented in this encounter Discharge Instructions * Patient Instructions* Nena Pond RN - 03/10/2014 10:32 AM DOCUMENT MANAGEMENT CONSULTANT [facility] Pain [...] headache, or any other problems, please call [phone] or after hours call Dr. Mirza at [phone] and tell them your physician's name. The exchange will alert the physician integration aide. If sedation is given: No sedation given. For Your Next Visit: No additional instructions. Other Instructions: May remove band-aid in 12 Hours. Return in one week for TFE #2. Patient Signature: Date: RN Signature: Date: MENT MANAGEMENT CONSULTANT documented in this encounter Medications at Time of Discharge Medication Sig Dispensed Refills Start Date End Date Uftvhuxyvge-Okgkzxayq-To t C-Mn (GLUCOSAMINE CHONDR 1500 COMPLX PO) [...] identified, and marked by Dr. Mirza. Responsible industrial truck driver is not needed due to [...] Add Levels Lumb/Sac, Fluoro. Alejandro Mirza MD MENT MANAGEMENT CONSULTANT documented in this encounter Plan of Treatment Upcoming Encounters Date Type Department Care Team (Late st Contact Info) Description 06/03/2024 1:00 PM DOCUMENT MANAGEMENT CONSULTANT Appointment [facility] - Rheumatology [address] [place] [address] [phone] 06/03/2024 2:00 PM DOCUMENT MANAGEMENT CONSULTANT Office Visit [facility] - Rheumatology [address] [place] [address] [phone] Gloria Smith MD [address] [place] [phone] documented as of this encounter Procedures Procedure Name Priority Date/Time Associated Diagnosis Comments PAIN MANAGEMENT PROCEDURE TIME Routine 03/10/2014 11:10 AM DOCUMENT MANAGEMENT CONSULTANT Displacement Of Lumbar Intervertebral Disc Without Myelopathy Thoracic or lumbosacral neuritis or radiculitis, unspecified documented in this encounter Results * PAIN MANAGEMENT PROCEDURE TIME (03/10/2014 11:10 AM DOCUMENT MANAGEMENT CONSULTANT) Anatomical Region Laterality Modality X-Ray Angiograph y Narrative 03/10/2014 11:16 AM DOCUMENT MANAGEMENT CONSULTANT Alejandro Mirza MD ? 03/10/2014 11:16 AM [...] identified, and marked by Dr. Mirza. ??Responsible industrial truck driver is not needed due to [...] L5 & S1 Transforaminal Epidural Injection Chalino Degn Provider: Alejandro Mirza MD 1960 Date: 03/10/2014 [...] site identified, andmarked by Dr. Mirza. Responsible industrial truck driver is not needed due to [...] Admin. by Other Provider 03/10/2014 10:45 AM DOCUMENT MANAGEMENT CONSULTANT 10 mg lidocaine (XYLOCAINE MPF) 1 % injection Infiltration, ONCE, 1 dose, On Sun03/10/14 at 1100 $ Admin. by Other Provider 03/10/2014 10:45 AM DOCUMENT MANAGEMENT CONSULTANT 5 mL documented in this encounter Care Teams Lead Scientist Relationship Specialty Start Date End Date Tomas Hyman MD [address] [facility] [address] [place] [address] PCP - General Family Medicine 12/31/13 05/09/18 Isidro Heredia MD Rheumatology 02/09/11 documented as of this encounter
--- OUTSIDE RECORDS SUMMARY | 2024-05-10 18:49 | XMS_ITS | Encounter Summary ---
Author Organization [facility] Address [address] [facility] [address] Care Team Providers Care Copywriter Name Role Phone Isidro Heredia MD Unavailable [phone] Tomas Hyman MD Primary Care Provider [phone] Reason for Visit * Treatment (Routine) - Closed Specialty Diagnoses / Procedures Referred By Contsarahi t Referred To Contact Pain Management Diagnoses Displacement of lumbar intervertebral disc without myelopathy Thoracic or lumbosacral neuritis or radiculitis, unspecified Procedures OR INJ,FORAMEN,L/S,1 LEVEL OR INJ,FORAMEN,L/S,[place] [address] [address] [facility] Pain [facility] [address] [place] [address] Referral ID Status Reason Start Date Expiration Date Visits Re quested Visits Authorized [id number] Closed 03/10/2014 09/06/2014 6 6 Encounter Details Date Type Department Care Team (Latest Contact Info) Description 03/24/2014 10:15 AM INSTRUCTIONAL COACH - 03/24/2014 10:[address] [facility] Hospital Encounter [facility] Pain Care [address] [place] [address] [place] [address] [place] [phone] Discharge Disposition: Home or Self Care Social [...] Sig Dispensed Refills Start Date End Date Xstgzpmarmv-Smultxrnp-Ev t C-Mn (GLUCOSAMINE CHONDR 1500 COMPLX PO) [...] Contact Info) Description 06/03/2024 1:00 PM INSTRUCTIONAL COACH Appointment [facility] - Rheumatology [address] [place] [address] [phone] 06/03/2024 2:00 PM INSTRUCTIONAL COACH Office Visit [facility] - Rheumatology [address] [place] [address] [phone] Gloria Smith MD [address] [place] [phone] documented as of this encounter Visit Diagnoses Not on filedocumented in this encounter Care Teams Copywriter Relationship Specialty Start Date End Date Tomas Hyman MD [address] [facility] [address] [place] [address] PCP - General Family Medicine 12/31/13 05/09/18 Isidro Heredia MD Rheumatology 02/09/11 documented as of this encounter
--- OUTSIDE RECORDS SUMMARY | 2024-05-10 18:49 | XMS_ITS | Encounter Summary ---
Author Organization [facility] Address [address] [facility] [place] [address] Care Team Providers Care Ultrasound Technician Name Role Phone Isidro Heredia MD Unavailable Tomas Hyman MD Primary Care Provider [phone] Reason for Visit * Reason Onset Date Comments Follow-up 01/05/2014 Encounter Details Date Type Department Care Team (Late st Contact Info) Description 01/05/2014 Telephone [facility] - Rheumatology [address] [place] [address] Isidro Heredia MD [address] [place] [address] Follow-up Social History Tobacco Use Types [...] Contact Info) Description 06/03/2024 1:00 PM CLINICAL STAFF ANESTHESIOLOGIST Appointment [facility] - Rheumatology [address] [place] [address] 06/03/2024 2:00 PM CLINICAL STAFF ANESTHESIOLOGIST Office Visit [facility] - Rheumatology [address] [place] [address] Gloria Smith MD [address] [place] [phone] documented as of this encounter Visit Diagnoses Not on filedocumented in this encounter Care Teams Ultrasound Technician Relationship Specialty Start Date End Date Tomas Hyman MD [address] [facility] [address] [place] [address] PCP - General Family Medicine 12/31/13 05/09/18 Isidro Heredia MD Rheumatology 02/09/11 documented as of this encounter
--- OUTSIDE RECORDS SUMMARY | 2024-05-10 18:49 | XMS_ITS | Encounter Summary ---
Author Organization [facility] Address [address] [facility] [place] [address] Care Team Providers Care Remote Encoding Center Manager Name Role Phone Isidro Heredia MD Unavailable [phone] Tomas Hyman MD Primary Care Provider [phone] Reason for Visit * Reason Comments Pain Back Encounter Details Date Type Department Care Team (Latest Contact Info) Description 12/31/2013 11:00 AM CDT Procedure visit [facility] - Family Medicine [address] [place] [address] Lumbar radiculopathy Social History Tobacco Use [...] Contact Info) Description 06/03/2024 1:00 PM HOT METAL CAR OPERATOR Appointment [facility] - Rheumatology [address] [place] [address] 06/03/2024 2:00 PM HOT METAL CAR OPERATOR Office Visit [facility] Medical [facility] - Rheumatology [address] [place] [address] Gloria Smith MD [address] [facility] [place] [address] documented as of this encounter Procedures Procedure [...] unspecified documented in this encounter Care Teams Remote Encoding Center Manager Relationship Specialty Start Date End Date Tomas Hyman MD [address] [facility] [address] [place] [address] PCP - General Family Medicine 12/31/13 05/09/18 Isidro Heredia MD Rheumatology 02/09/11 documented as of this encounter
--- OUTSIDE RECORDS SUMMARY | 2024-05-10 18:49 | XMS_ITS | Encounter Summary ---
Author Organization [facility] Address [address] [facility] [address] Care Team Providers Care Scheduler Name Role Phone Nolberto Nicole MD Primary Care Provider [phone] Isidro Heredia MD Unavailable [phone] Encounter Details Date Type Department Care Team (Late st Contact Info) Description 09/04/2013 Orders Only [facility] - Rheumatology [address] [place] [address] [phone] Isidro Heredia MD [address] [place] [address] Rheumatoid arthritis (HCC) Social History Tobacco [...] st Contact Info) Description 06/03/2024 1:00 PM BLAST FURNACE BLOWER Appointment [facility] - Rheumatology [address] [place] [address] [phone] 06/03/2024 2:00 PM BLAST FURNACE BLOWER Office Visit [facility] - Rheumatology [address] [place] [address] Gloria Smith MD [address] [place] [address] [phone] documented as of this encounter Procedures Procedure [...] Narrative Resulting Agency Comment [facility] [place] [id number] [facility] ??[facility] [id number] Isidro Heredia MD LAB - HEMATOLOGY OR [...] PM CDT Narrative Resulting Agency Comment [facility] [address] ??[facility] [phone] Isidro Heredia MD LAB - CHEMISTRY ORD [...] PM CDT Narrative Resulting Agency Comment [facility] [address] ??[facility] [phone] Isidro Heredia MD LAB - HEMATOLOGY OR DERABLES [facility] INSURANCE BILL documented in this encounter Visit Diagnoses Diagnosis Rheumatoid arthritis(714.0) (HCC)- Primary Rheumatoid arthritis documented in this encounter Care Teams Scheduler Relationship Specialty Start Date End Date Nolberto Nciole MD PCP - General 07/21/08 12/30/13 Isidro Heredia MD Rheumatology 02/09/11 documented as of this encounter
--- OUTSIDE RECORDS SUMMARY | 2024-05-10 18:49 | XMS_ITS | Encounter Summary ---
Author Organization [facility] Address [address] [place] [address] Care Team Providers Care Community Reinvestment Act Officer Name Role Phone Isidro Heredia MD Unavailable [phone] Tomas Hyman MD Primary Care Provider [phone] Reason for Visit * Treatment (Routine) - Closed Specialty Diagnoses / Procedures Referred By Lawrence shha Referred To Contact Infusion Therapy Nurse Diagnoses Rheumatoid arthritis(714.0) ([facility]) Procedures KS INJECTION TOCILIZUMAB 1 MG Isidro Heredia MD [address] [place] [address] [phone] Referral ID Status Reason Start Date Expiration Date Visits Re quested Visits Authorized [id number] Closed 05/08/2014 10/05/2014 1 6 Encounter Details Date Type Department Care Team (Late st Contact Info) Description 05/11/2014 8:58 AM PROPOSAL ENGINEER - 05/11/2014 11:59 PM PROPOSAL ENGINEER Hospital Encounter [facility] Medical [facility] - Rheumatology [address] [place] [address] Isidro Heredia MD [address] [place] [address] Discharge Disposition: Home or [...] Comments Blood Pressure 165/100 05/11/2014 9:22 AM PROPOSAL ENGINEER Pulse 84 05/11/2014 9:22 AM PROPOSAL ENGINEER Temperature 36.9 ??C (98.5 ??F) 05/11/2014 9:22 AM CS T Respiratory Rate 16 05/11/2014 9:22 AM PROPOSAL ENGINEER Oxygen Saturation - - Inhaled Oxygen Concentration - - Weight 117.9 kg (260 lb) 05/11/2014 9:22 AM PROPOSAL ENGINEER Height 177.8 cm (5' 10 ) 05/11/2014 9:22 AM PROPOSAL ENGINEER Body Mass Index 37.31 05/11/2014 9:22 AM PROPOSAL ENGINEER documented in this encounter Discharge Instructions * Discharge Instructions* Mirela Rodrigez RN - 05/11/2014 9:38 AM PROPOSAL ENGINEER PR Rheumatology Post Infusion instructions You have [...] Sunday through 01-02 call the office at [phone] After hours or on the weekend call the exchange at [phone] If you have had lab work done [...] have chosen [facility] as your provider. Mirela Rodrigez RN OSAL ENGINEER documented in this encounter Medications at Time of Discharge Medication Sig Dispensed Refills Start Date End Date Aujdlzbhelm-Ohybwhjyt-Cr t C-Mn (GLUCOSAMINE CHONDR 1500 COMPLX PO) [...] toid arthritis(714.0) ([facility]) Take 1 Tab by mouth every 6 [...] the plan and thankedme for my concern. OSAL ENGINEER * Mirela Rodrigez RN - 05/11/2014 9:34 AM CST JOSE Deng [id number] 05/11/2014 Pt denies symptoms of infection or [...] Next treatment? 4 weeks Mirela Rodrigez RN OSAL ENGINEER documented in this encounter Plan of Treatment Upcoming Encounters Date Type Department Care Team (Late st Contact Info) Description 06/03/2024 1:00 PM PROPOSAL ENGINEER Appointment [facility] - Rheumatology [address] [place] [address] 06/03/2024 2:00 PM PROPOSAL ENGINEER Office Visit [facility] - Rheumatology [address] [place] [address] Gloria Smith MD [address] [place] [phone] documented as of this encounter Visit [...] 0830, 2 vials used of Actemra 400MG [facility] 86365-775-04 with 0 WASTE $ Given 05/11/2014 9:32 AM PROPOSAL ENGINEER 800 mg 140 m L/hr documented in this encounter Care Teams Community Reinvestment Act Officer Relationship Specialty Start Date End Date Tomas Hyman MD [address] [facility] [address] [place] [address] PCP - General Family Medicine 12/31/13 05/09/18 Isidro Heredia MD Rheumatology 02/09/11 documented as of this encounter
--- OUTSIDE RECORDS SUMMARY | 2024-05-10 18:49 | XMS_ITS | Encounter Summary ---
Author Organization [facility] Address [address] [place] [address] Care Team Providers Care Ems Driver Name Role Phone Isidro Heredia MD Unavailable [phone] Tomas Hyman MD Primary Care Provider [phone] Encounter Details Date Type Department Care Team (Late st Contact Info) Description 01/14/2014 Orders Only [facility] Medical [facility] - Rheumatology [address] [place] [address] [phone] Isidro Heredia MD [address] [place] [address] Rheumatoid arthritis (HCC) Social History Tobacco [...] Contact Info) Description 06/03/2024 1:00 PM CONCRETE INSPECTOR Appointment [facility] - Rheumatology [address] [place] [address] 06/03/2024 2:00 PM CONCRETE INSPECTOR Office Visit [facility] - Rheumatology [address] [place] [address] Gloria Smith MD [address] [place] [phone] documented as of this encounter Procedures [...] 6:09 PM CDT Narrative Resulting Agency Comment [facility] ??[facility] [phone] Isidro Heredia MD LAB - CHEMISTRY ORD ERABLES [facility] INSURANCE BILL * SED RATE WESTERGREN (01/14/2014 4:00 PM CDT) Erythrocyte Sedimentation Rate Westergren 7 0 - 30 mm/hr [facility] INSURANCE BILL Blood specimen (specimen) BLOOD SPECIMEN / Unknown 01/14/2014 4:00 PM CDT 01/14/2014 6:09 PM CDT Narrative Resulting Agency Comment [facility] ??[facility] [phone] Isidro Heredia MD LAB - HEMATOLOGY OR [...] PM CDT Narrative Resulting Agency Comment [facility] [address] ??[facility] [phone] Isidro Heredia MD LAB - HEMATOLOGY OR DERABLES [facility] INSURANCE BILL documented in this encounter Visit Diagnoses Diagnosis Rheumatoid arthritis(714.0) (HCC)- Primary Rheumatoid arthritis documented in this encounter Care Teams Ems Driver Relationship Specialty Start Date End Date Tomas Hyman MD [address] [place] [address] PCP - General Family Medicine 12/31/13 05/09/18 Isidro Heredia MD Rheumatology 02/09/11 documented as of this encounter
--- OUTSIDE RECORDS SUMMARY | 2024-05-10 18:49 | XMS_ITS | Encounter Summary ---
Author Organization [facility] Address [address] [place] [address] Care Team Providers Care Clinic Office Manager Name Role Phone Isidro Heredia MD Unavailable [phone] Tomas Hyman MD Primary Care Provider [phone] Reason for Visit * Reason Comments Rheumatoid Arthritis Lower Extremity Problem right hip pain r adiates down right leg into foot * Consult, Test & Treat (Routine) - Closed Specialty Diagnoses / Procedures Referred By Contac t Referred To Contact Diagnoses Rheumatoid arthritis(714.0) ([facility]) Procedures MD OFFICE VISIT DURING HOURS Nolberto Nicole MD [address] [place] [address] Isidro Heredia MD [address] [place] [address] Referral ID Status Reason Start Date Expiration Date Visits Re quested Visits Authorized [id number] Closed 09/30/2013 03/28/2014 1 6 Encounter Details Date Type Department Care Team (Late st Contact Info) Description 12/31/2013 11:00 AM CDT Office Visit [facility] - Rheumatology [address] [place] [address] Isidro Heredia MD [address] [place] [address] Chronic pain syndrome (Primary Dx); [...] PO) Take by mouth once daily. ??? Ixwylhsqplo-Pfgdjrxam-Mhe C-Mn (GLUCOSAMINE CHONDR 1500 COMPLX PO) Take [...] st Contact Info) Description 06/03/2024 1:00 PM CONSERVATION SCIENCE TEACHER Appointment [facility] - Rheumatology [address] [place] [address] [phone] 06/03/2024 2:00 PM CONSERVATION SCIENCE TEACHER Office Visit [facility] - Rheumatology [address] [place] [address] [phone] Gloria Smith MD [address] [place] [phone] documented as of this encounter Results * [...] Diagnosis Chronic pain syndrome- Primary Rheumatoid arthritis(714.0) ([facility]) Rheumatoid arthritis Lumbar radiculopathy Thoracic or lumbosacral neuritis or radiculitis, unspecified Lumbar radiculopathy- Primary Thoracic or lumbosacral neuritis or radiculitis, unspecified documented in this encounter Care Teams Clinic Office Manager Relationship Specialty Start Date End Date Tomas Hyman MD [address] [facility] [address] [place] [address] PCP - General Family Medicine 12/31/13 05/09/18 Isidro Heredia MD Rheumatology 02/09/11 documented as of this encounter
--- OUTSIDE RECORDS SUMMARY | 2024-05-10 18:49 | XMS_ITS | Encounter Summary ---
Author Organization [facility] Address [address] [facility] [place] [address] Care Team Providers Care Java Developer With Security Clearance Name Role Phone Nolberto Nicole MD Primary Care Provider [phone] Isidro Heredia MD Unavailable [phone] Encounter Details Date Type Department Care Team (Late st Contact Info) Description 12/12/2013 Orders Only [facility] Medical [facility] - Rheumatology [address] [place] [address] Isidro Heredia MD [address] [place] [address] Other and unspecified hyperlipidemia Social History [...] st Contact Info) Description 06/03/2024 1:00 PM CANNON PINION ADJUSTER Appointment [facility] - Rheumatology [address] [place] [address] [phone] 06/03/2024 2:00 PM CANNON PINION ADJUSTER Office Visit [facility] - Rheumatology [address] [place] [address] Gloria Smith MD [address] [place] [phone] documented as of this encounter Procedures [...] PM CDT Narrative Resulting Agency Comment [facility] [place] [address] [facility] ??[facility] [phone] Isidro Heredia MD LAB - CHEMISTRY ORD ERABLES [facility] INSURANCE BILL documented in this encounter Visit Diagnoses Diagnosis Other and unspecified hyperlipidemia- Primary documented in this encounter Care Teams Java Developer With Security Clearance Relationship Specialty Start Date End Date Nolberto Nicole MD PCP - General 07/21/08 12/30/13 Isidro Heredia MD Rheumatology 02/09/11 documented as of this encounter
--- OUTSIDE RECORDS SUMMARY | 2024-05-10 18:49 | XMS_ITS | Encounter Summary ---
Author Organization [facility] Health Address [address] [facility] [place] [address] Care Team Providers Care Tattoo Identifier Name Role Phone Isidro Heredia MD Unavailable [phone] oTmas Hyman MD Primary Care Provider [phone] Reason for Visit * Treatment (Routine) - Closed Specialty Diagnoses / Procedures Referred By Contsarahi t Referred To Contact Pain Management Diagnoses Displacement of lumbar intervertebral disc without myelopathy Thoracic or lumbosacral neuritis or radiculitis, unspecified Procedures MS INJ,FORAMEN,L/S,1 LEVEL MS INJ,FORAMEN,L/S,[place] [address] [address] [facility] Pain Care [address] [place] [address] Referral ID Status Reason Start Date Expiration Date Visits Re quested Visits Authorized [id number] Closed 03/10/2014 09/06/2014 6 6 Encounter Details Date Type Department Care Team (Latest Contact Info) Description 04/28/2014 9:57 AM LOADING UNIT OPERATOR SEATING Hospital Encounter [facility] Pain Care [address] [place] [address] [place] [address] [address] Discharge Disposition: Home or Self [...] Sig Dispensed Refills Start Date End Date Xicsjxhdzew-Qlxyqxmhe-Xi t C-Mn (GLUCOSAMINE CHONDR 1500 COMPLX PO) [...] st Contact Info) Description 06/03/2024 1:00 PM LOADING UNIT OPERATOR SEATING Appointment [facility] - Rheumatology [address] [place] [address] [phone] 06/03/2024 2:00 PM LOADING UNIT OPERATOR SEATING Office Visit [facility] - Rheumatology [address] [place] [address] [phone] Gloria Smith MD [address] [place] [phone] documented as of this encounter Visit Diagnoses Not on filedocumented in this encounter Care Teams Tattoo Identifier Relationship Specialty Start Date End Date Tomas Hyman MD [address] [facility] [address] [place] [address] PCP - General Family Medicine 12/31/13 05/09/18 Isidro Heredia MD Rheumatology 02/09/11 documented as of this encounter
--- OUTSIDE RECORDS SUMMARY | 2024-05-10 18:49 | XMS_ITS | Encounter Summary ---
Author Organization [facility] Address [address] [place] [address] Care Team Providers Care Supervisor Keymodule Assembly Name Role Phone Nolberto Nicole MD Primary Care Provider [phone] Isidro Heredia MD Unavailable [phone] Encounter Details Date Type Department Care Team (Late Contact Info) Description 09/04/2013 Orders Only [facility] - Rheumatology [address] [place] [address] Carlos Foreman RN Rheumatoid arthritis (HCC) [...] (Late Contact Info) Description 06/03/2024 1:00 PM INSTRUMENT REPAIRER HELPER Appointment [facility] - Rheumatology [address] [place] [address] 06/03/2024 2:00 PM INSTRUMENT REPAIRER HELPER Office Visit [facility] - Rheumatology [address] [place] [address] Gloria Smith MD [address] [place] [address] documented as of this encounter Visit Diagnoses Diagnosis Rheumatoid arthritis(714.0) (HCC)- Primary Rheumatoid arthritis documented in this encounter Care Teams Supervisor Keymodule Assembly Relationship Specialty Start Date End Date Nolberto Nicole MD PCP - General 07/21/08 12/30/13 Isidro Heredia MD Rheumatology 02/09/11 documented as of this encounter
--- OUTSIDE RECORDS SUMMARY | 2024-05-10 18:49 | XMS_ITS | Encounter Summary ---
Author Organization [facility] Address [address] [place] [address] Care Team Providers Care Paste Mixer Name Role Phone Isidro Heredia MD Unavailable [phone] Tomas Hyman MD Primary Care Provider [phone] Reason for Visit * Treatment (Routine) - Closed Specialty Diagnoses / Procedures Referred By Lawrence shah Referred To Contact Infusion Therapy Nurse Diagnoses Rheumatoid arthritis(714.0) ([facility]) Procedures [place] INJECTION TOCILIZUMAB 1 MG Isidro Heredia MD [address] [place] [address] [address] Referral ID Status Reason Start Date Expiration Date Visits Re quested Visits Authorized [id number] Closed 05/08/2014 10/05/2014 1 6 Encounter Details Date Type Department Care Team (Late st Contact Info) Description 06/08/2014 3:53 PM RUBBER TUBING SPLICER - 06/08/2014 11:59 PM RUBBER TUBING SPLICER Hospital Encounter [facility] - Rheumatology [address] [place] [address] Isidro Heredia MD [address] [place] [address] Discharge Disposition: Home or Self [...] Comments Blood Pressure 141/94 06/08/2014 4:15 PM RUBBER TUBING SPLICER Pulse 107 06/08/2014 4:15 PM RUBBER TUBING SPLICER Temperature 36.8 ??C (98.2 ??F) 06/08/2014 4:15 PM CS T Respiratory Rate 16 06/08/2014 4:15 PM RUBBER TUBING SPLICER Oxygen Saturation - - Inhaled Oxygen Concentration - - Weight - - Height - - Body Mass Index - - documented in this encounter Discharge Instructions * Discharge Instructions* Carlos Foreman RN - 06/08/2014 4:59 PM RUBBER TUBING SPLICER [facility] Rheumatology Post Infusion instructions You have [...] through Sunday 9-5 call the office at [phone] After hours or on the weekend call the exchange at [phone] If you have had lab work done [...] as your provider. Carlos Foreman RN ER TUBING SPLICER documented in this encounter Medications at Time of Discharge Medication Sig Dispensed Refills Start Date End Date Bkxglohlyjd-Oswdoqokm-Xl t C-Mn (GLUCOSAMINE CHONDR 1500 COMPLX PO) [...] - 06/08/2014 5:11 PM CST JOSE Deng [id number] 06/08/2014 Diagnosis: Rheumatoid arthritis [714.0]. Patient questionnaire [...] Next treatment? 4wk Carlos Foreman RN ER TUBING SPLICER documented in this encounter Plan of Treatment Upcoming Encounters Date Type Department Care Team (Late st Contact Info) Description 06/03/2024 1:00 PM RUBBER TUBING SPLICER Appointment [facility] - Rheumatology [address] [place] [address] 06/03/2024 2:00 PM RUBBER TUBING SPLICER Office Visit [facility] - Rheumatology [address] [place] [address] Gloria Smith MD [address] [place] [phone] documented as of this encounter Visit Diagnoses [...] 1345, 2 vials used of Actemra 400MG [facility] 89769-759-98 with 0 WASTE $ Given 06/08/2014 4:10 PM RUBBER TUBING SPLICER 800 mg 140 m L/hr documented in this encounter Care Teams Paste Mixer Relationship Specialty Start Date End Date Tomas Hyman MD [address] [place] [address] PCP - General Family Medicine 12/31/13 05/09/18 Isidro Heredia MD Rheumatology 02/09/11 documented as of this encounter
--- OUTSIDE RECORDS SUMMARY | 2024-05-10 18:49 | XMS_ITS | Encounter Summary ---
Author Organization [facility] Address [address] [facility] [address] Care Team Providers Care Higher Level Teaching Assistant Name Role Phone Isidro Heredia MD Unavailable [phone] Tomas Hyman MD Primary Care Provider [phone] Reason for Visit * Oncology Prior Authorization - Closed Specialty Diagnoses / Procedures Referred By Contsarahi t Referred To Contact Infusion Therapy Nurse Diagnoses Rheumatoid arthritis(714.0) ([facility]) Procedures [place] INJECTION TOCILIZUMAB 1 MG Isidro Heredia MD [address] [place] [address] [address] Referral ID Status Reason Start Date Expiration Date Visits Re quested Visits Authorized [id number] Closed 05/01/2013 04/29/2014 1 12 Encounter Details Date Type Department Care Team (Late st Contact Info) Description 03/12/2014 12:57 PM CUSTOMER SERVICE ADVOCATE - 03/12/2014 11:59 PM CUSTOMER SERVICE ADVOCATE Hospital Encounter [facility] - Rheumatology [address] [place] [address] Isidro Heredia MD [address] [place] [address] Discharge Disposition: Home or Self [...] Comments Blood Pressure 149/96 03/12/2014 1:44 PM CUSTOMER SERVICE ADVOCATE Pulse 99 03/12/2014 1:44 PM CUSTOMER SERVICE ADVOCATE Temperature 37.1 ??C (98.8 ??F) 03/12/2014 1:44 PM CS T Respiratory Rate 16 03/12/2014 1:44 PM CUSTOMER SERVICE ADVOCATE Oxygen Saturation - - Inhaled Oxygen Concentration - - Weight - - Height 177.8 cm (5' 10 ) 03/12/2014 1:44 PM CUSTOMER SERVICE ADVOCATE Body Mass Index - - documented in this encounter Discharge Instructions * Discharge Instructions* Carlos Foreman RN - 03/12/2014 1:42 PM CUSTOMER SERVICE ADVOCATE [place] Rheumatology Post Infusion instructions You have [...] through Sunday 9-5 call the office at [phone] After hours or on the weekend call the exchange at [phone] If you have had lab work done [...] Center as your provider. Carlos Foreman RN OMER SERVICE ADVOCATE documented in this encounter Medications at Time of Discharge Medication Sig Dispensed Refills Start Date End Date Djfiuyposjh-Riopbcddy-Bp t C-Mn (GLUCOSAMINE CHONDR 1500 COMPLX PO) [...] oxyCODONE-acetaminophen (PERCOCET) 5-325 MG tabletIndications:Rheuma toid arthritis(714.0) ([facility]) Take 1 Tab by mouth every [...] - 03/12/2014 1:39 PM CST JOSE Deng [id number] 03/12/2014 Diagnosis: Rheumatoid arthritis [714.0]. Patient questionnaire [...] Yes Next treatment? 4wk Carlos Foreman RN OMER SERVICE ADVOCATE documented in this encounter Plan of Treatment Upcoming Encounters Date Type Department Care Team (Late st Contact Info) Description 06/03/2024 1:00 PM CUSTOMER SERVICE ADVOCATE Appointment [facility] - Rheumatology [address] [place] [address] 06/03/2024 2:00 PM CUSTOMER SERVICE ADVOCATE Office Visit [facility] - Rheumatology [address] [place] [address] Gloria Smith MD [address] [place] [phone] documented as of this encounter Visit [...] 0900, 2 vials used of Actemra 400MG [facility] 23096-304-41 with 0 WASTE $ Given 03/12/2014 1:39 PM CUSTOMER SERVICE ADVOCATE 800 mg 140 m L/hr documented in this encounter Care Teams Higher Level Teaching Assistant Relationship Specialty Start Date End Date Tomas Hyman MD [address] [facility] [address] [place] [address] PCP - General Family Medicine 12/31/13 05/09/18 Isidro Heredia MD Rheumatology 02/09/11 documented as of this encounter
--- OUTSIDE RECORDS SUMMARY | 2024-05-10 18:49 | XMS_ITS | Encounter Summary ---
Author Organization [facility] Address [address] [place] [address] Care Team Providers Care Desulphuring Operator Name Role Phone Nolberto Nicole MD Primary Care Provider [phone] Isidro Heredia MD Unavailable [phone] Reason for Visit * Treatment (Routine) - Closed Specialty Diagnoses / Procedures Referred By Lawrence shah Referred To Contact Infusion Therapy Nurse Diagnoses Rheumatoid arthritis(714.0) ([facility]) Procedures [place] INJECTION TOCILIZUMAB 1 MG Isidro Heredia MD [address] [place] [address] Referral ID Status Reason Start Date Expiration Date Visits Re quested Visits Authorized [id number] Closed 05/01/2013 04/29/2014 1 12 Encounter Details Date Type Department Care Team (Late st Contact Info) Description 07/09/2013 1:30 PM CDT - 07/09/2013 11:59 PM CDT Hospital Encounter [facility] - Rheumatology [address] [place] [address] Isidro Heredia MD [address] [place] [address] Discharge Disposition: Home or Self [...] Foreman RN - 07/09/2013 2:04 PM CDT MA Rheumatology Post Infusion instructions [...] through Sunday 9-5 call the office at [phone] After hours or on the weekend call the exchange at [phone] If you have had lab work done [...] Sig Dispensed Refills Start Date End Date Tjqqraizsji-Yjlmijtxo-Qf t C-Mn (GLUCOSAMINE CHONDR 1500 COMPLX PO) [...] - 07/09/2013 2:03 PM CDT JOSE Deng [id number] 07/09/2013 Diagnosis: Rheumatoid arthritis [714.0]. Patient questionnaire [...] Contact Info) Description 06/03/2024 1:00 PM FLEET OPERATIONS MANAGER Appointment [facility] - Rheumatology [address] [place] [address] 06/03/2024 2:00 PM FLEET OPERATIONS MANAGER Office Visit [facility] - Rheumatology [address] [place], [place] [phone] Gloria Smith MD [address] [place] [phone] documented as of this encounter Visit Diagnoses Diagnosis Rheumatoid arthritis(714.0) ([facility])- Primary Rheumatoid arthritis documented in this [...] mL/hr documented in this encounter Care Teams Desulphuring Operator Relationship Specialty Start Date End Date Nolberto Nicole MD PCP - General 07/21/08 12/30/13 Isidro Heredia MD Rheumatology 02/09/11 documented as of this encounter
--- OUTSIDE RECORDS SUMMARY | 2024-05-10 18:49 | XMS_ITS | Encounter Summary ---
Author Organization [facility] Address [address] [facility] [place] [address] Care Team Providers Care Sound Recordist Name Role Phone Nolberto Nicole MD Primary Care Provider Isidro Heredia MD Unavailable [phone] Reason for Visit * Reason Comments Rheumatoid Arthritis * Consult, Test & Treat (Routine) - Closed Specialty Diagnoses / Procedures Referred By Contsarahi t Referred To Contact Diagnoses Rheumatoid arthritis(714.0) (HCC) Procedures [place] OFFICE VISIT DURING HOURS Nolberto Nicole MD [address] [place] [address] Isidro Heredia MD [address] [place] [address] Referral ID Status Reason Start Date Expiration Date Visits Re quested Visits Authorized [id number] Closed 03/14/2013 09/11/2013 1 6 Encounter Details Date Type Department Care Team (Late st Contact Info) Description 07/09/2013 2:00 PM CDT Office Visit [facility] - Rheumatology [address] [place] [address] Isidro Heredia MD [address] [place] [address] Rheumatoid arthritis (HCC) (Primary Dx); Chronic [...] Body Mass Index 20.66 06/10/2013 2:00 PM PASTRY WRAPPER documented in this encounter Progress Notes * [...] PO) Take by mouth once daily. ??? Ifaxhuzwhny-Cwsprzuub-Kus C-Mn (GLUCOSAMINE CHONDR 1500 COMPLX PO) Take [...] st Contact Info) Description 06/03/2024 1:00 PM PASTRY WRAPPER Appointment [facility] - Rheumatology [address] [place] [address] 06/03/2024 2:00 PM PASTRY WRAPPER Office Visit [facility] - Rheumatology [address] [place] [address] Gloria Smith MD [address] [place] [phone] documented as of this encounter Visit Diagnoses Diagnosis Rheumatoid arthritis(714.0) (HCC)- Primary Rheumatoid arthritis Chronic pain syndrome documented in this encounter Care Teams Sound Recordist Relationship Specialty Start Date End Date Nolberto Nicole MD PCP - General 07/21/08 12/30/13 Isidro Heredia MD Rheumatology 02/09/11 documented as of this encounter
--- OUTSIDE RECORDS SUMMARY | 2024-05-10 18:49 | XMS_ITS | Encounter Summary ---
Author Organization [facility] Address [address] [place] [address] [place] [address] Care Team Providers Care Web Analyst Name Role Phone Nolberto Nicole MD Primary Care Provider [phone] Isidro Heredia MD Unavailable [phone] Reason for Visit * Reason Onset Date Comments MEDICATION REFILL 06/25/2013 Encounter Details Date Type Department Care Team (Late st Contact Info) Description 06/25/2013 Refill [facility] - Rheumatology [address] [place] [address] Isidro Heredia MD [address] [place] [address] MEDICATION REFILL Social History Tobacco Use [...] 9:23 AM CST Received a fax from [employer] requesting alternate cholesterol medication for Crestor. Crestor is not on formulary. Change to Zocor 20 mg daily. Faxed over to [phone] and received confirmation. OF HISTORY documented in this encounter Plan of Treatment Upcoming Encounters Date Type Department Care Team (Late st Contact Info) Description 06/03/2024 1:00 PM HEAD OF HISTORY Appointment [facility] - Rheumatology [address] [place] [phone] 06/03/2024 2:00 PM HEAD OF HISTORY Office Visit [facility] - Rheumatology [address] [place] [phone] Gloria Smith MD [address] [place] [phone] documented as of this encounter Visit Diagnoses Not on filedocumented in this encounter Care Teams Web Analyst Relationship Specialty Start Date End Date Nolberto Nicole MD PCP - General 07/21/08 12/30/13 Isidro Heredia MD Rheumatology 02/09/11 documented as of this encounter
--- OUTSIDE RECORDS SUMMARY | 2024-05-10 18:49 | XMS_ITS | Encounter Summary ---
Author Organization [facility] Address [address] [facility] [place] [address] Care Team Providers Care Mineral Industry Teacher Name Role Phone Isidro Heredia MD Unavailable [phone] Tomas Hyman MD Primary Care Provider [phone] Reason for Visit * Radiology Services - Closed Specialty Diagnoses / Procedures Referred By Lawrence shah Referred To Contact Diagnoses Lumbar radiculopathy Procedures MRI SPINE LUMBAR NON CONTRAST MRI SPINE LUMBAR WITH AND WITHOUT CONTRAST Isidro Heredia MD [address] [facility] [address] Referral ID Status Reason Start Date Expiration Date Visits Re quested Visits Authorized [id number] Closed 01/02/2014 07/01/2014 1 1 Encounter Details Date Type Department Care Team (Late st Contact Info) Description 01/02/2014 7:32 AM CDT - 01/02/2014 11:59 PM T Hospital Encounter [facility] Health Imaging Services - MRI [address] [place] [address] Isidro Heredia MD [address] [place], [place] [id number] Discharge Disposition: Home or Self Care Social [...] Sig Dispensed Refills Start Date End Date Jidwmqahhvy-Bzxpfpjsx-Uw t C-Mn (GLUCOSAMINE CHONDR 1500 COMPLX PO) [...] st Contact Info) Description 06/03/2024 1:00 PM BUCKET WASH OPERATOR Appointment [facility] - Rheumatology [address] [place] [address] 06/03/2024 2:00 PM BUCKET WASH OPERATOR Office Visit [facility] - Rheumatology [address] [place] [address] Gloria Smith MD [address] [place] [phone] documented as of this encounter Procedures Procedure [...] unspecified documented in this encounter Care Teams Mineral Industry Teacher Relationship Specialty Start Date End Date Tomas Hyman MD [address] [facility] [address] [place] [address] PCP - General Family Medicine 12/31/13 05/09/18 Isidro Heredia MD Rheumatology 02/09/11 documented as of this encounter
--- OUTSIDE RECORDS SUMMARY | 2024-05-10 18:49 | XMS_ITS | Encounter Summary ---
Author Organization [facility] Address [address] [facility] [place] [address] Care Team Providers Care Is Support Analyst Name Role Phone Isidro Heredia MD Unavailable [phone] Tomas Hyman MD Primary Care Provider [phone] Encounter Details Date Type Department Care Team (Latest Contact Info) Description 03/17/2014 9:10 AM FLOAT OPERATOR - 03/17/2014 11:59 PM FLOAT OPERATOR Hospital Encounter [facility] Pain Care [address] [place] [address] [place] [address] [place] [phone] Discharge Disposition: Home or Self Care Social [...] Comments Blood Pressure 148/91 03/17/2014 9:46 AM FLOAT OPERATOR Pulse 87 03/17/2014 9:46 AM FLOAT OPERATOR Temperature - - Respiratory Rate 16 03/17/2014 9:46 AM FLOAT OPERATOR Oxygen Saturation 96% 03/17/2014 9:46 AM FLOAT OPERATOR Inhaled Oxygen Concentration - - Weight - - Height - - Body Mass Index - - documented in this encounter Discharge Instructions * Patient Instructions* Nena Pond RN - 03/17/2014 9:20 AM FLOAT OPERATOR [facility] Procedure Center Pain Discharge Instructions [...] headache, or any other problems, please call [phone] or after hours callDr. Mirza at [phone] and tell them your physician's name. The exchange will alert the physician construction contractor. If sedation is given: No sedation given. For Your Next Visit: No additional instructions. Other Instructions: May remove band-aid in 12 Hours. Return in one week for TFE #3. Patient Signature: Date: RN Signature: Date: T OPERATOR documented in this encounter Medications at Time of Discharge Medication Sig Dispensed Refills Start Date End Date Imnohliepen-Tzkjebsgp-Tl t C-Mn (GLUCOSAMINE CHONDR 1500 COMPLX PO) [...] identified, and marked by Dr. Mirza. Responsible taxi driver supervisor is not needed due to [...] Levels Lumb/Sac, Fluoro. Alejandro Mirza MD T OPERATOR documented in this encounter Plan of Treatment Upcoming Encounters Date Type Department Care Team (Late st Contact Info) Description 06/03/2024 1:00 PM FLOAT OPERATOR Appointment [facility] - Rheumatology [address] [place] [phone] 06/03/2024 2:00 PM FLOAT OPERATOR Office Visit [facility] - Rheumatology [address] [place] [address] Gloria Smith MD [address] [place] [phone] documented as of this encounter Procedures Procedure Name Priority Date/Time Associated Diagnosis Comments PAIN MANAGEMENT PROCEDURE TIME Routine 03/17/2014 9:43 AM FLOAT OPERATOR Displacement Of Lumbar Intervertebral Disc Without Myelopathy Thoracic or lumbosacral neuritis or radiculitis, unspecified documented in this encounter Results * PAIN MANAGEMENT PROCEDURE TIME (03/17/2014 9:43 AM FLOAT OPERATOR) Anatomical Region Laterality Modality X-Ray Angiograph y Narrative 03/17/2014 10:14 AM FLOAT OPERATOR Alejandro Mirza MD ? 03/17/2014 10:14 AM [...] identified, and marked by Dr. Mirza. ??Responsible taxi driver supervisor is not needed due to [...] Admin. by Other Provider 03/17/2014 9:34 AM FLOAT OPERATOR 10 mg lidocaine (XYLOCAINE MPF) 1 % injection Infiltration, ONCE, 1 dose, On Sun03/17/14 at 0945 $ Admin. by Other Provider 03/17/2014 9:34 AM FLOAT OPERATOR 5 mL documented in this encounter Care Teams Is Support Analyst Relationship Specialty Start Date End Date Tomas Hyman MD [address] [facility] [address] [place] [address] PCP - General Family Medicine 12/31/13 05/09/18 Isidro Heredia MD Rheumatology 02/09/11 documented as of this encounter
--- OUTSIDE RECORDS SUMMARY | 2024-05-10 18:49 | XMS_ITS | Encounter Summary ---
Author Organization [facility] Address [address] [facility] [place] [address] Care Team Providers Care Steam Shovel Engineer Name Role Phone Nolberto Nicole MD Primary Care Provider [phone] Isidro Heredia MD Unavailable [phone] Encounter Details Date Type Department Care Team (Late st Contact Info) Description 07/09/2013 Orders Only [facility] - Rheumatology [address] [place] [address] Isidro Heredia MD [address] [place] [address] Rheumatoid arthritis (HCC) ; Other and [...] Contact Info) Description 06/03/2024 1:00 PM AIR FILLER Appointment [facility] - Rheumatology [address] [place] [phone] 06/03/2024 2:00 PM AIR FILLER Office Visit [facility] - Rheumatology [address] [place] [address] Gloria Smith MD [address] [place] [phone] documented as of this encounter Procedures [...] CDT Narrative Resulting Agency Comment [facility] [address] ??[facility] [phone] Isidro Heredia MD LAB - HEMATOLOGY OR [...] CDT Narrative Resulting Agency Comment [facility] [address] ??[facility] [phone] Isidro Heredia MD LAB - CHEMISTRY ORD [...] CDT Narrative Resulting Agency Comment [facility] [address] ??[facility] [phone] Isidro Heredia MD LAB - HEMATOLOGY OR [...] CDT Narrative Resulting Agency Comment [facility] [address] ??[facility] [phone] Isidro Heredia MD LAB - CHEMISTRY ORD ERABLES [facility] INSURANCE BILL documented in this encounter Visit Diagnoses Diagnosis Rheumatoid arthritis(714.0) ([facility])- Primary Rheumatoid arthritis Other and unspecified hyperlipidemia documented in this encounter Care Teams Steam Shovel Engineer Relationship Specialty Start Date End Date Nolberto Nicole MD PCP - General 07/21/08 12/30/13 Isidro Heredia MD Rheumatology 02/09/11 documented as of this encounter
--- OUTSIDE RECORDS SUMMARY | 2024-05-10 18:49 | XMS_ITS | Encounter Summary ---
Author Organization [facility] Address [address] [place] [address] Care Team Providers Care Stone Processing Machine Operator Name Role Phone Hitesh Solis MD Unavailable Tomas Hyman MD Primary Care Provider Reason for Referral * Evaluate & Treat - Closed Specialty Diagnoses / Procedures Referred By Lawrence shah Referred To Contact Diagnoses Lumbar radiculopathy Hitesh Solis MD [address] [place] [address] [place] [address] [address] Referral ID Status Reason Start Date Expiration Date V isits Requested Visits Authorized [id number] Closed Specialty Services Required 02/25/2014 02/25/2015 6 6 Reason for Visit * Reason Comments Rheumatoid Arthritis Pain Joint upper and lower extr emities * Evaluate & Treat (Routine) - Closed Specialty Diagnoses / Procedures Referred By Lawrence shah Referred To Contact Diagnoses Rheumatoid arthritis(714.0) ([facility]) Procedures DC OFFICE VISIT DURING HOURS Tomas Hyman MD [address] [facility] [address] [place] [address] Hitesh Solis MD [address] [place] [address] Referral ID Status Reason Start Date Expiration Date Visits Re quested Visits Authorized [id number] Closed 02/10/2014 02/10/2015 6 6 Encounter Details Date Type Department Care Team (Late st Contact Info) Description 02/12/2014 2:00 PM CDT Office Visit [facility] - Rheumatology [address] [place] [address] Hitesh Solis MD [address] [place] [address] ZOHAIB ESPINO [address] Rheumatoid arthritis (HCC) (Primary Dx); Chronic pain [...] PO) Take by mouth once daily. ??? Npidiqrgksl-Zlqjtwszk-Ikb C-Mn (GLUCOSAMINE CHONDR 1500 COMPLX PO) Take [...] st Contact Info) Description 06/03/2024 1:00 PM DOORS PREFITTER Appointment [facility] - Rheumatology [address] [place] [address] 06/03/2024 2:00 PM DOORS PREFITTER Office Visit [facility] - Rheumatology [address] [place] [address] Gloria Smith MD [address] [place] [phone] Scheduled Referrals Name Type Priority Associated [...] this encounter Visit Diagnoses Diagnosis Rheumatoid arthritis(714.0) ([facility])- Primary Rheumatoid arthritis Chronic pain syndrome Lumbar radiculopathy Thoracic or lumbosacral neuritis or radiculitis, unspecified Rheumatoid arthritis(714.0) ([facility])- Primary Rheumatoid arthritis documented in this encounter Care Teams Stone Processing Machine Operator Relationship Specialty Start Date End Date Tomas Hyman MD [address] [facility] [address] [place] [address] PCP - General Family Medicine 12/31/13 05/09/18 Hitesh Solis MD Rheumatology 02/09/11 documented as of this encounter
--- OUTSIDE RECORDS SUMMARY | 2024-05-10 18:49 | XMS_ITS | Encounter Summary ---
Author Organization [facility] Address [address] [place] [address] Care Team Providers Care Radiation Control Technician Name Role Phone Isidro Heredia MD Unavailable [phone] Tomas Hyman MD Primary Care Provider [phone] Reason for Visit * Reason Comments Rheumatoid Arthritis * Consult, Test & Treat (Routine) - Closed Specialty Diagnoses / Procedures Referred By Lawrence t Referred To Contact Diagnoses Rheumatoid arthritis(714.0) (HCC) Procedures [place] OFFICE VISIT DURING HOURS Nolberto Nicole MD 0 [place] [address] Isidro Heredia MD [address] [place] [address] Referral ID Status Reason Start Date Expiration Date Visits Re quested Visits Authorized [id number] Closed 09/30/2013 03/28/2014 1 6 Encounter Details Date Type Department Care Team (Late st Contact Info) Description 01/14/2014 2:30 PM CDT Office Visit [facility] Medical [facility] - Rheumatology [address] [place] [address] Isidro Heredia MD [address] [place] [address] Rheumatoid arthritis (HCC) (Primary Dx); [...] PO) Take by mouth once daily. ??? Kmnfbbnvuiu-Gwzmdlwht-Mks C-Mn (GLUCOSAMINE CHONDR 1500 COMPLX PO) Take [...] Contact Info) Description 06/03/2024 1:00 PM SPECIAL DELIVERY WORKER Appointment [facility] - Rheumatology [address] [place] [address] 06/03/2024 2:00 PM SPECIAL DELIVERY WORKER Office Visit [facility] Medical [facility] - Rheumatology [address] [place] [address] Gloria Smith MD [address] [place] [phone] documented as of this encounter Visit Diagnoses Diagnosis Rheumatoid arthritis(714.0) (HCC)- Primary Rheumatoid arthritis Chronic pain syndrome documented in this encounter Care Teams Radiation Control Technician Relationship Specialty Start Date End Date Tomas Hyman MD [address] [place] [address] PCP - General Family Medicine 12/31/13 05/09/18 Isidro Heredia MD Rheumatology 02/09/11 documented as of this encounter
--- OUTSIDE RECORDS SUMMARY | 2024-05-10 18:49 | XMS_ITS | Encounter Summary ---
Author Organization [facility] Address [address] [place] [address] Care Team Providers Care Hat Forming Machine Feeder Name Role Phone Nolberto Nicole MD Primary Care Provider [phone] Isidro Heredia MD Unavailable [phone] Reason for Visit * Treatment (Routine) - Closed Specialty Diagnoses / Procedures Referred By Lawrence shah Referred To Contact Infusion Therapy Nurse Diagnoses Rheumatoid arthritis(714.0) ([facility]) Procedures DC INJECTION TOCILIZUMAB 1 MG Isidro Heredia MD [address] [place] [address] Referral ID Status Reason Start Date Expiration Date Visits Re quested Visits Authorized [id number] Closed 05/01/2013 04/29/2014 1 12 Encounter Details Date Type Department Care Team (Late st Contact Info) Description 10/15/2013 11:00 AM CDT - 10/15/2013 11:59 PM T Hospital Encounter [facility] - Rheumatology [address] [place] [address] Isidro Heredia MD [address] [place] [address] Discharge Disposition: Home or Self [...] Sierra RN - 10/15/2013 11:17 AM CDT [place] Rheumatology Post Infusion instructions [...] through Sunday 9-5 call the office at [phone] After hours or on the weekend call the exchange at [phone] If you have had lab work done [...] [facility] as your provider. Manisha Sierra RN documented in this encounter Medications at Time of Discharge Medication Sig Dispensed Refills Start Date End Date Vnxhfgmaotj-Ikcjargdc-Ze t C-Mn (GLUCOSAMINE CHONDR 1500 COMPLX PO) [...] - 10/15/2013 12:12 PM CDT JOSE Deng [id number] 10/15/2013 Diagnosis: Rheumatoid arthritis [714.0]. Patient questionnaire [...] st Contact Info) Description 06/03/2024 1:00 PM SOFT HAT BINDER Appointment [facility] - Rheumatology [address] [place] [address] 06/03/2024 2:00 PM SOFT HAT BINDER Office Visit [facility] - Rheumatology [address] [place] [address] Gloria Smith MD [address] [place] [phone] documented as of this encounter Visit Diagnoses [...] hr documented in this encounter Care Teams Hat Forming Machine Feeder Relationship Specialty Start Date End Date Nolberto Nicole MD PCP - General 07/21/08 12/30/13 Isidro Heredia MD Rheumatology 02/09/11 documented as of this encounter
--- OUTSIDE RECORDS SUMMARY | 2024-05-10 18:49 | XMS_ITS | Encounter Summary ---
Author Organization [facility] Address [address] [facility] [place] [address] Care Team Providers Care It Infrastructure Engineer Name Role Phone Isidro Heredia MD Unavailable Tomas Hyman MD Primary Care Provider Reason for Visit * Reason Comments Rheumatoid Arthritis * Evaluate & Treat (Routine) - Closed Specialty Diagnoses / Procedures Referred By Lawrence shah Referred To Contact Diagnoses Rheumatoid arthritis(714.0) (HCC) Procedures NM OFFICE VISIT DURING HOURS Tomas Hyman MD [address] [facility] [address] [place] [address] Isidro Heredia MD 07 [place] [address] Referral ID Status Reason Start Date Expiration Date Visits Re quested Visits Authorized [id number] Closed 02/10/2014 02/10/2015 6 6 Encounter Details Date Type Department Care Team (Late st Contact Info) Description 04/10/2014 12:15 PM FLAT SPRING ASSEMBLER Office Visit [facility] Medical [facility] - Rheumatology [address] [place] [address] Isidro Heredia MD [address] [place] [address] Rheumatoid arthritis (HCC) (Primary Dx); Chronic [...] Comments Blood Pressure 149/87 04/10/2014 1:53 PM FLAT SPRING ASSEMBLER Pulse 112 04/10/2014 1:53 PM FLAT SPRING ASSEMBLER Temperature - - Respiratory Rate - - Oxygen Saturation - - Inhaled Oxygen Concentration - - Weight 117.9 kg (260 lb) 04/10/2014 1:53 PM FLAT SPRING ASSEMBLER Height - - Body Mass Index 37.31 03/23/2014 9:18 AM FLAT SPRING ASSEMBLER documented in this encounter Progress Notes [...] PO) Take by mouth once daily. ??? Vublmkwksam-Hwudyletu-Wxw C-Mn (GLUCOSAMINE CHONDR 1500 COMPLX PO) Take [...] up in office in 4 weeks SPRING ASSEMBLER documented in this encounter Plan of Treatment Upcoming Encounters Date Type Department Care Team (Late st Contact Info) Description 06/03/2024 1:00 PM FLAT SPRING ASSEMBLER Appointment [facility] - Rheumatology [address] [place] [address] [phone] 06/03/2024 2:00 PM FLAT SPRING ASSEMBLER Office Visit [facility] - Rheumatology [address] [place] [address] Gloria Smith MD [address] [place] [phone] documented as of this encounter Visit Diagnoses Diagnosis Rheumatoid arthritis(714.0) ([facility])- Primary Rheumatoid arthritis Chronic pain syndrome documented in this encounter Care Teams It Infrastructure Engineer Relationship Specialty Start Date End Date Tomas Hyman MD [address] [place] [address] PCP - General Family Medicine 12/31/13 05/09/18 Isidro Heredia MD Rheumatology 02/09/11 documented as of this encounter
--- OUTSIDE RECORDS SUMMARY | 2024-05-10 18:49 | XMS_ITS | Encounter Summary ---
Author Organization [facility] Address [address] [place] [address] Care Team Providers Care Charge Account Clerk Name Role Phone Isidro Heredia MD Unavailable [phone] Tomas Hyman MD Primary Care Provider [phone] Reason for Visit * Treatment (Routine) - Closed Specialty Diagnoses / Procedures Referred By Contsarahi t Referred To Contact Pain Management Diagnoses Displacement of lumbar intervertebral disc without myelopathy Thoracic or lumbosacral neuritis or radiculitis, unspecified Procedures VT INJ,FORAMEN,L/S,1 LEVEL VT INJ,FORAMEN,L/S,[place] [address] [address] [facility] Pain Care [address] [place] [address] Referral ID Status Reason Start Date Expiration Date Visits Re quested Visits Authorized [id number] Closed 03/10/2014 09/06/2014 6 6 Encounter Details Date Type Department Care Team (Latest Contact Info) Description 03/17/2014 9:09 AM SINGLE NEEDLE OPERATOR Hospital Encounter [facility] Pain Care [address] [place] [address] [place] [address] [address] Discharge Disposition: Home or Self [...] Sig Dispensed Refills Start Date End Date Vkbngkhszes-Obnccqefv-Uq t C-Mn (GLUCOSAMINE CHONDR 1500 COMPLX PO) [...] (PERCOCET) 5-325 MG tabletIndications:Rheuma toid arthritis(714.0) ([facility]) Take 1 Tab by mouth every [...] st Contact Info) Description 06/03/2024 1:00 PM SINGLE NEEDLE OPERATOR Appointment [facility] - Rheumatology [address] [place] [address] [phone] 06/03/2024 2:00 PM SINGLE NEEDLE OPERATOR Office Visit [facility] - Rheumatology [address] [place] [address] [phone] Gloria Smith MD [address] [place] [phone] documented as of this encounter Visit Diagnoses Not on filedocumented in this encounter Care Teams Charge Account Clerk Relationship Specialty Start Date End Date Tomas Hyman MD [address] [facility] [address] [place] [address] PCP - General Family Medicine 12/31/13 05/09/18 Isidro Heredia MD Rheumatology 02/09/11 documented as of this encounter
--- OUTSIDE RECORDS SUMMARY | 2024-05-10 18:49 | XMS_ITS | Encounter Summary ---
Author Organization [facility] Address [address] [place] [address] Care Team Providers Care Restoration Ecologist Name Role Phone Isidro Heredia MD Unavailable [phone] Tomas Hyman MD Primary Care Provider Reason for Visit * Treatment (Routine) - Closed Specialty Diagnoses / Procedures Referred By Contsarahi t Referred To Contact Pain Management Diagnoses Displacement of lumbar intervertebral disc without myelopathy Thoracic or lumbosacral neuritis or radiculitis, unspecified Procedures OK INJ,FORAMEN,L/S,1 LEVEL OK INJ,FORAMEN,L/S,[place] [address] [address] [facility] Pain Care [address] [place] [address] Referral ID Status Reason Start Date Expiration Date Visits Re quested Visits Authorized [id number] Closed 03/10/2014 09/06/2014 6 6 Encounter Details Date Type Department Care Team (Latest Contact Info) Description 03/10/2014 10:18 AM CASTING HOUSE WORKER Hospital Encounter [facility] Pain Care [address] [place] [address] [place] [address] [address] Discharge Disposition: Home or [...] Sig Dispensed Refills Start Date End Date Vanphbdostl-Afxgcsnej-Ok t C-Mn (GLUCOSAMINE CHONDR 1500 COMPLX PO) [...] 5-325 MG tabletIndications:Rheuma toid arthritis(714.0) ([facility]) Take 1 Tab by mouth every [...] st Contact Info) Description 06/03/2024 1:00 PM CASTING HOUSE WORKER Appointment [facility] - Rheumatology [address] [place] [address] [phone] 06/03/2024 2:00 PM CASTING HOUSE WORKER Office Visit [facility] - Rheumatology [address] [place] [address] Gloria Smith MD [address] [place] [phone] documented as of this encounter Visit Diagnoses Not on filedocumented in this encounter Care Teams Restoration Ecologist Relationship Specialty Start Date End Date Tomas Hyman MD [address] [facility] [address] [place] [address] PCP - General Family Medicine 12/31/13 05/09/18 Isidro Heredia MD Rheumatology 02/09/11 documented as of this encounter
--- OUTSIDE RECORDS SUMMARY | 2024-05-10 18:49 | XMS_ITS | Encounter Summary ---
Author Organization [facility] Address [address] [facility] [place] [address] Care Team Providers Care Aitchbone Breaker Name Role Phone Nolberto Nicole MD Primary Care Provider Isidro Heredia MD Unavailable [phone] Reason for Visit * Reason Comments Rheumatoid Arthritis Pain Back lower rt side down l eg. off work for 2 weeks Swelling hands, knees, should ers Pain Joint all over * Consult, Test & Treat (Routine) - Closed Specialty Diagnoses / Procedures Referred By Contac t Referred To Contact Diagnoses Rheumatoid arthritis(714.0) ([facility]) Procedures [place] OFFICE VISIT DURING HOURS Nolberto Nicole MD [address] [place] [address] Isidro Heredia MD 24 [place] [address] Referral ID Status Reason Start Date Expiration Date Visits Re quested Visits Authorized [id number] Closed 09/30/2013 03/28/2014 1 6 Encounter Details Date Type Department Care Team (Late st Contact Info) Description 11/12/2013 3:30 PM CDT Office Visit [facility] - Rheumatology [address] [place] [address] Isidro Heredia MD [address] [facility] [place] [address] Rheumatoid arthritis (HCC) (Primary Dx); [...] PO) Take by mouth once daily. ??? Qorctfmoepy-Oiucttlmg-Gan C-Mn (GLUCOSAMINE CHONDR 1500 COMPLX PO) Take by mouth once daily. ??? ZYRTEC 10 MG TABS Take 10 mg by mouth once daily. Seasonal (nov. Current Facility-Administered Medications on File Prior to Visit Medication Dose Route Frequency Provider Last Rate Last Dose ??? tocilizumab (ACTEMRA) 800 mg in 0.9% NaCl IVPB 800 mg Intravenous Once Isidro Heredia MD 800 mg at 11/12/13 1652 Patient Active Problem List Diagnosis ??? Rheumatoid [...] st Contact Info) Description 06/03/2024 1:00 PM LIBRARY SERVICES COORDINATOR Appointment [facility] - Rheumatology [address] [place] [address] [phone] 06/03/2024 2:00 PM LIBRARY SERVICES COORDINATOR Office Visit [facility] - Rheumatology [address] [place] [address] [phone] Gloria Smith MD [address] [place] [phone] documented as of this encounter Visit Diagnoses Diagnosis Rheumatoid arthritis(714.0) ([facility])- Primary Rheumatoid arthritis Chronic pain syndrome Lumbar radiculopathy Thoracic or lumbosacral neuritis or radiculitis, unspecified documented in this encounter Care Teams Aitchbone Breaker Relationship Specialty Start Date End Date Nolberto Nicole MD PCP - General 07/21/08 12/30/13 Isidro Heredia MD Rheumatology 02/09/11 documented as of this encounter
--- OUTSIDE RECORDS SUMMARY | 2024-05-10 18:49 | XMS_ITS | Encounter Summary ---
Author Organization [facility] Address [address] [facility] [place] [address] Care Team Providers Care Neurology Director Name Role Phone Isidro Heredia MD Unavailable Tomas Hyman MD Primary Care Provider [phone] Reason for Referral * Procedure - Closed Specialty Diagnoses / Procedures Referred By Contac t Referred To Contact Cardiology Diagnoses Tachycardia Procedures EKG 12-LEAD Isidro Heredia MD [address] [place] [address] Referral ID Status Reason Start Date Expiration Date Visits Re quested Visits Authorized [id number] Closed 05/26/2014 11/22/2014 1 1 WIRE OPERATOR Reason for Visit * Reason Comments Rheumatoid Arthritis Pain Joint rt shoulder pain- wa nts cortisone injection, hand, wist, ankle pain * Evaluate & Treat (Routine) - Closed Specialty Diagnoses / Procedures Referred By Contsarahi t Referred To Contact Diagnoses Rheumatoid arthritis(714.0) ([facility]) Procedures NM OFFICE VISIT DURING HOURS Tomas Hyman MD [address] [place] [address] Isidro Heredia MD [address] [place] [address] Referral ID Status Reason Start Date Expiration Date Visits Re quested Visits Authorized [id number] Closed 02/10/2014 02/10/2015 6 6 Encounter Details Date Type Department Care Team (Late st Contact Info) Description 05/22/2014 12:00 PM DROP WIRE OPERATOR Office Visit [facility] - Rheumatology [address] [place] [address] Isidro Heredia MD [address] [facility] [address] Rheumatoid arthritis (HCC) (Primary Dx); Chronic pain [...] Comments Blood Pressure 102/94 05/22/2014 12:35 PM DROP WIRE OPERATOR Pulse - - Temperature - - Respiratory Rate - - Oxygen Saturation - - Inhaled Oxygen Concentration - - Weight 115.7 kg (255 lb) 05/22/2014 12:35 PM DROP WIRE OPERATOR Height - - Body Mass Index 36.59 05/11/2014 9:22 AM DROP WIRE OPERATOR documented in this encounter Progress Notes [...] PO) Take by mouth once daily. ??? Glmdvfgrxff-Hbxjerubv-Vil C-Mn (GLUCOSAMINE CHONDR 1500 COMPLX PO) Take [...] TRIAMCINOLON ACETONID NOS 10 MG INJ ??? NM DRAIN/INJECT LARGE JOINT/BURSA ??? oxyCODONE-acetaminophen (PERCOCET) 5-325 [...] Follow up in office in 4 weeks WIRE OPERATOR documented in this encounter Plan of Treatment Upcoming Encounters Date Type Department Care Team (Late st Contact Info) Description 06/03/2024 1:00 PM DROP WIRE OPERATOR Appointment [facility] - Rheumatology [address] [place] [address] [phone] 06/03/2024 2:00 PM DROP WIRE OPERATOR Office Visit [facility] - Rheumatology [address] [place] [address] [phone] Gloria Smith MD [address] [place] [phone] Scheduled Orders Name Type Priority Associated Diagnoses Orde r Schedule EKG 12-LEAD ECG Routine Tachycardia 1 Occurrences starting 05/26/2014 until 05/26/2015 documented as of this encounter Visit Diagnoses Diagnosis Rheumatoid arthritis(714.0) ([facility])- Primary Rheumatoid arthritis Chronic pain syndrome Lumbar radiculopathy Thoracic or lumbosacral neuritis or radiculitis, unspecified Triceps tendonitis Other enthesopathy of elbow region Tachycardia Tachycardia, unspecified documented in this encounter Administered Medications Administered Medications Medication Order MAR Action Action Date Dose Rate Site Triamcinolone Acetonide Intraarticular Given 05/22/2014 80 mL See comments documented in this encounter Care Teams Neurology Director Relationship Specialty Start Date End Date Tomas Hyman MD [address] [facility] [address] [place] [address] PCP - General Family Medicine 12/31/13 05/09/18 Isidro Heredia MD Rheumatology 02/09/11 documented as of this encounter
--- OUTSIDE RECORDS SUMMARY | 2024-05-10 18:49 | XMS_ITS | Encounter Summary ---
Author Organization [facility] Address [address] [facility] [place] [address] Care Team Providers Care Bag Patcher Name Role Phone Isidro Heredia MD Unavailable Tomas Hyman MD Primary Care Provider [phone] Reason for Visit * Reason Comments Rheumatoid Arthritis * Evaluate & Treat (Routine) - Closed Specialty Diagnoses / Procedures Referred By Lawrence shah Referred To Contact Diagnoses Rheumatoid arthritis(714.0) (HCC) Procedures ID OFFICE VISIT DURING HOURS Tomas Hyman MD [address] [facility] [address] [place] [address] Isidro Heredia MD [address] [place] [address] Referral ID Status Reason Start Date Expiration Date Visits Re quested Visits Authorized [id number] Closed 02/10/2014 02/10/2015 6 6 Encounter Details Date Type Department Care Team (Late st Contact Info) Description 03/12/2014 1:45 PM DELI/BAKERY ASSOCIATE Office Visit [facility] - Rheumatology [address] [place] [address] Isidro Heredia MD [address] [place] [address] Chronic pain syndrome (Primary Dx); Rheumatoid [...] Referral given to eye doctor Dr Pena /BAKERY ASSOCIATE * Isidro Heredia MD - 03/12/2014 2:38 [...] PO) Take by mouth once daily. ??? Opatqfqrtjf-Jcvmdxrcy-Ipy C-Mn (GLUCOSAMINE CHONDR 1500 COMPLX PO) Take [...] Follow up in office in 4 weeks /BAKERY ASSOCIATE documented in this encounter Plan of Treatment Upcoming Encounters Date Type Department Care Team (Late st Contact Info) Description 06/03/2024 1:00 PM DELI/BAKERY ASSOCIATE Appointment [facility] - Rheumatology [address] [place] [address] 06/03/2024 2:00 PM DELI/BAKERY ASSOCIATE Office Visit [facility] - Rheumatology [address] [place] [address] Gloria Smith MD [address] [place] [phone] documented as of this encounter Visit Diagnoses Diagnosis Chronic pain syndrome- Primary Rheumatoid arthritis(714.0) (HCC) Rheumatoid arthritis Chronic LBP Lumbago documented in this encounter Care Teams Bag Patcher Relationship Specialty Start Date End Date Tomas Hyman MD [address] [facility] [address] [place] [address] PCP - General Family Medicine 12/31/13 05/09/18 Isidro Heredia MD Rheumatology 02/09/11 documented as of this encounter
--- OUTSIDE RECORDS SUMMARY | 2024-05-10 18:49 | XMS_ITS | Encounter Summary ---
Author Organization [facility] Address [address] [facility] [place] [address] Care Team Providers Care Pictures Editor Name Role Phone Isidro Heredia MD Unavailable [phone] Tomas Hyman MD Primary Care Provider [phone] Reason for Visit * Reason Comments Lower Extremity Problem right * Evaluate & Treat (Routine) - Closed Specialty Diagnoses / Procedures Referred By Lawrence shah Referred To Contact Diagnoses Lumbago Rheumatoid arthritis(714.0) ([facility]) Procedures AMB CONSULT TO ORTHOPEDIC SURGERY CO OFFICE/OUTPT VISIT,EST,Tomas Murguia MD [address] [place] [address] [place] [address] [address] Referral ID Status Reason Start Date Expiration Date Visits Re quested Visits Authorized [id number] Closed 03/11/2014 03/11/2015 6 6 Encounter Details Date Type Department Care Team (Late st Contact Info) Description 03/23/2014 9:00 AM OIL FIELD TESTER Office Visit [facility] Pain Care [id number] [place] [address]. [place] [address] [place] [address] [facility] [address] [place] [address] Thoracic or lumbosacral neuritis or [...] 117.9 kg (260 lb) 03/23/2014 9:18 AM OIL FIELD TESTER Height 177.8 cm (5' 10 ) 03/23/2014 9:18 AM OIL FIELD TESTER Body Mass Index 37.31 03/23/2014 9:18 AM OIL FIELD TESTER documented in this encounter Patient Instructions * Patient Instructions* Selvin Stern MD - 03/23/2014 10:12 AM OIL FIELD TESTER F/U with . FIELD TESTER documented in this encounter Progress Notes * Selvin Stern MD - 03/23/2014 10:12 AM CST Please see dictated clinic note. FIELD TESTER * Hali Figueroa - 03/23/2014 9:18 AM CST EMG RLE Pain scale 7/10 FIELD TESTER documented in this encounter H&P Notes * Selvin Stern MD - 03/25/2014 12:11 AM CST DATE OF SERVICE: 03/23/2014 LOCATION: [facility] [address] HISTORY: Mr. Deng is [...] exhaustion. 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 He lives with his family. He denies [...] Selvin Boateng M.D. Electronically Signed 03/25/2014 08:17:12 [facility]/MedQ #: [id number] cc: Catina Rosa M.D. FIELD TESTER * Selvin Stern MD - 03/24/2014 11:41 PM CST DATE OF SERVICE: 03/23/2014 LOCATION: [facility] 120 EMG STUDY: EXAMINING PHYSICIAN: Selvin Boateng [...] M.D. Electronically Signed 03/25/2014 08:17:17 [facility]/MedQ #: [id number] FIELD TESTER documented in this encounter Plan of Treatment Upcoming Encounters Date Type Department Care Team (Late st Contact Info) Description 06/03/2024 1:00 PM OIL FIELD TESTER Appointment [facility] - Rheumatology [address] [place] [address] [phone] 06/03/2024 2:00 PM OIL FIELD TESTER Office Visit [facility] - Rheumatology [address] [place] [address] [phone] Gloria Smith MD [address] [place] [phone] documented as of this encounter Visit Diagnoses Diagnosis Thoracic or lumbosacral neuritis or radiculitis, unspecified- Primary documented in this encounter Care Teams Pictures Editor Relationship Specialty Start Date End Date Tomas Hyman MD [address] [facility] [address] [place] [address] PCP - General Family Medicine 12/31/13 05/09/18 Isidro Heredia MD Rheumatology 02/09/11 documented as of this encounter
--- OUTSIDE RECORDS SUMMARY | 2024-05-10 18:50 | XMS_ITS | Encounter Summary ---
Author Organization [facility] Address [address] [facility] [place] [address] Care Team Providers Care Green Pipefitter Name Role Phone Nolberto Nicole MD Primary Care Provider Isidro Heredia MD Unavailable [phone] Reason for Visit * Reason Comments Follow-up RA Pain Hand obdulia with swelling. r t is worse with tingling sensation * Evaluate & Treat (Routine) - Closed Specialty Diagnoses / Procedures Referred By Lawrence shah Referred To Contact Diagnoses Rheumatoid arthritis(714.0) (HCC) Procedures PA OFFICE VISIT DURING HOURS Nolberto Nicole MD 0 [place] [address] Isidro Heredia MD [address] [place] [address] Referral ID Status Reason Start Date Expiration Date Visits Re quested Visits Authorized [id number] Closed 08/03/2011 01/30/2012 1 12 Encounter Details Date Type Department Care Team (Late st Contact Info) Description 08/07/2011 5:15 PM CDT Office Visit [facility] - Rheumatology [address] [place] [address] Isidro Heredia MD [address] [place] [address] Rheumatoid arthritis (HCC) (Primary Dx); [...] Body Mass Index 34.29 05/15/2011 5:19 PM POWER WHEELCHAIR MECHANIC documented in this encounter Progress Notes [...] PO) Take by mouth once daily. ??? Btncjfhnaua-Pwvznrxdk-Vly C-Mn (GLUCOSAMINE CHONDR 1500 COMPLX PO) Take [...] Contact Info) Description 06/03/2024 1:00 PM POWER WHEELCHAIR MECHANIC Appointment [facility] - Rheumatology [address] [place] [address] 06/03/2024 2:00 PM POWER WHEELCHAIR MECHANIC Office Visit [facility] - Rheumatology [address] [place] [address] Gloria Smith MD [address] [place] [phone] documented as of this encounter Visit Diagnoses Diagnosis Rheumatoid arthritis(714.0) (HCC)- Primary Rheumatoid arthritis Triceps tendonitis Other enthesopathy of elbow region Pneumonia Pneumonia, organism unspecified documented in this encounter Care Teams Green Pipefitter Relationship Specialty Start Date End Date Nolberto Nicole MD PCP - General 07/21/08 12/30/13 Isidro Heredia MD Rheumatology 02/09/11 documented as of this encounter
--- OUTSIDE RECORDS SUMMARY | 2024-05-10 18:50 | XMS_ITS | Encounter Summary ---
Author Organization [facility] Address [address] [place] [address] Care Team Providers Care Staff Nuclear Medicine Technologist Name Role Phone Nolberto Nicole MD Primary Care Provider Isidro Heredia MD Unavailable [phone] Reason for Visit * Treatment (Routine) - Closed Specialty Diagnoses / Procedures Referred By Lawrence shah Referred To Contact Infusion Therapy Nurse Diagnoses Rheumatoid arthritis(714.0) ([facility]) Procedures WA INJECTION RITUXIMAB 100 MG Nolberto Nicole MD [address] [place] [address] Referral ID Status Reason Start Date Expiration Date Visits Re quested Visits Authorized [id number] Closed 04/30/2012 04/29/2013 1 4 Encounter Details Date Type Department Care Team (Late st Contact Info) Description 01/09/2013 11:30 AM CDT - 01/09/2013 11:59 PM CDT Hospital Encounter [facility] [employer] Medical [facility] - Rheumatology [address] [place] [address] Isidro Heredia MD [address] [place] [address] Discharge Disposition: Home or Self Care [...] through Sunday 9-5 call the office at [phone] After hours or on the weekend call the exchange at [phone] If you have had lab work done [...] Sig Dispensed Refills Start Date End Date Alxqnrfozht-Msysoeqfh-C it C-Mn (GLUCOSAMINE CHONDR 1500 COMPLX PO) [...] - 01/09/2013 12:38 PM CDT JOSE Deng [id number] 01/09/2013 Diagnosis: Rheumatoid arthritis [714.0]. Patient questionnaire [...] Contact Info) Description 06/03/2024 1:00 PM BRICK TENDER Appointment [facility] - Rheumatology [address] [place] [address] [phone] 06/03/2024 2:00 PM BRICK TENDER Office Visit [facility] - Rheumatology [address] [place] [address] Gloria Smith MD [address] [place] [phone] documented as of this encounter Visit Diagnoses Not on filedocumented in this encounter Administered Medications Inactive Administered Medications - up to 3 most recent administrations Medication Order MAR Action Action Date Dose Rate Site diphenhydrAMINE (BENADRYL) injection 50 mg 50 mg, Intravenous, ONCE, 1 dose, On [facility] [place] 01/09/13 at 1200, Max intravenous rate = 25 mg/min $ Given 01/09/2013 12:00 PM CDT 50 mg methylPREDNISolone sod succ (Solu-MEDROL) injection 125 mg 125 mg, Intravenous, ONCE, 1 dose, On [facility] [place] 01/09/13 at 1215 $ Given 01/09/2013 12:05 PM CDT 125 mg rituximab (RITUXAN) 1,000 mg in NaCl 0.9 % infusion 1,000 mg, Intravenous, ONCE, 1 dose, On [facility] [place] 01/09/13 at 1145, Stable for 24 hours refrigerate; 48 hours at room temperature . WASTE DISPOSAL INSTRUCTIONS: Chemo Bin Disposal required. . $ Given 01/09/2013 12:35 PM CDT 1,000 mg documented in this encounter Care Teams Staff Nuclear Medicine Technologist Relationship Specialty Start Date End Date Nolberto Nicole MD PCP - General 07/21/08 12/30/13 Isidro Heredia MD Rheumatology 02/09/11 documented as of this encounter
--- OUTSIDE RECORDS SUMMARY | 2024-05-10 18:50 | XMS_ITS | Encounter Summary ---
Author Organization [facility] Address [address] [facility] [place] [address] Care Team Providers Care Fabric Machine Operator Name Role Phone Nolberto Nicole MD Primary Care Provider [phone] Isidro Heredia MD Unavailable [phone] Encounter Details Date Type Department Care Team (Late st Contact Info) Description 09/02/2012 8:57 AM CDT - 09/02/2012 11:59 PM CDT Hospital Encounter [facility] Medical [facility] - Rheumatology [address] [place] [address] Isidro Heredia MD [address] [place] [address] Discharge Disposition: Home or Self Care [...] Rodrigez RN - 09/02/2012 9:23 AM CDT [place] Rheumatology Post Infusion instructions [...] Sunday through 01-02 call the office at [phone] After hours or on the weekend call the exchange at [phone] If you have had lab work done [...] [facility] as your provider. Mirela Rodrigez RN * Discharge Instructions* Document, Scanned - 09/08/2012 2:12 PM CDT documented in this encounter Medications at Time of Discharge Medication Sig Dispensed Refills Start Date End Date Aruqxuqmuar-Czxmcrpza-At t C-Mn (GLUCOSAMINE CHONDR 1500 COMPLX PO) [...] - 09/02/2012 9:29 AM CDT JOSE Deng [id number] 09/02/2012 BP 143/95 Pulse 89 Temp 98.6 [...] well? Yes Next treatment? 6 months Mirela Rodrgiez RN documented in this encounter Miscellaneous Notes * Miscellaneous Scans - Document, Scanned - 09/08/2012 5:30 PM CDT documented in this encounter Plan of Treatment Upcoming Encounters Date Type Department Care Team (Late st Contact Info) Description 06/03/2024 1:00 PM FLUTE GRINDER Appointment [facility] - Rheumatology [address] [place] [address] 06/03/2024 2:00 PM FLUTE GRINDER Office Visit [facility] - Rheumatology [address] [place] [address] Golria Smith MD [address] [place] [phone] documented as of this encounter Visit [...] mg documented in this encounter Care Teams Fabric Machine Operator Relationship Specialty Start Date End Date Nolberto Nicole MD PCP - General 07/21/08 12/30/13 Isidro Heredia MD Rheumatology 02/09/11 documented as of this encounter
--- OUTSIDE RECORDS SUMMARY | 2024-05-10 18:50 | XMS_ITS | Encounter Summary ---
Author Organization [facility] Address [address] [place] [address] Care Team Providers Care Computer Aided Design Technician Name Role Phone Nolberto Nicole MD Primary Care Provider [phone] Isidro Heredia MD Unavailable Reason for Visit * Reason Onset Date Comments General 08/01/2011 Request call ugo Valiente Encounter Details Date Type Department Care Team (Late st Contact Info) Description 08/01/2011 Telephone [facility] - Rheumatology [address] [place] [address] Isidro Heredia MD [address] [place] [address] General (Request call from Dr Valiente) [...] st Contact Info) Description 06/03/2024 1:00 PM EAR NOSE THROAT PHYSICIAN Appointment [facility] - Rheumatology [address] [place] [address] [phone] 06/03/2024 2:00 PM EAR NOSE THROAT PHYSICIAN Office Visit [facility] - Rheumatology [address] [place] [address] [phone] Gloria Smith MD [address] [place] [phone] documented as of this encounter Visit Diagnoses Not on filedocumented in this encounter Care Teams Computer Aided Design Technician Relationship Specialty Start Date End Date Nolberto Nicole MD PCP - General 07/21/08 12/30/13 Isidor Heredia MD Rheumatology 02/09/11 documented as of this encounter
--- OUTSIDE RECORDS SUMMARY | 2024-05-10 18:50 | XMS_ITS | Encounter Summary ---
Author Organization [facility] Address [address] [facility] [place] [address] Care Team Providers Care Greaser And Oiler Name Role Phone Nolberto Nicole MD Primary Care Provider [phone] Isidro Heredia MD Unavailable [phone] Reason for Visit * Reason Comments Chest Pain Encounter Details Date Type Department Care Team (Late Contact Info) Description 03/21/2013 1:15 PM LEAD BI DEVELOPER Procedure visit [facility] - Family Medicine [address] [place] [address] Pleurisy Social History Tobacco Use Types [...] XR CHEST PA AND LATERAL CXR: NAD BI DEVELOPER documented in this encounter Plan of Treatment Upcoming Encounters Date Type Department Care Team (Late Contact Info) Description 06/03/2024 1:00 PM LEAD BI DEVELOPER Appointment [facility] - Rheumatology [address] [place] [address] 06/03/2024 2:00 PM LEAD BI DEVELOPER Office Visit [facility] - Rheumatology [address] [place] [address] Gloria Smith MD [address] [place] [phone] documented as of this encounter Procedures Procedure Name Priority Date/Time Associated Diagnosis Comments XR CHEST 2VW Routine 03/24/2013 6:23 PM LEAD BI DEVELOPER Pleurisy documented in this encounter Results * XR CHEST PA AND LATERAL (03/24/2013 6:23 PM LEAD BI DEVELOPER) Anatomical Region Laterality Modality Chest Other Narrative 03/24/2013 6:23 PM LEAD BI DEVELOPER Isidro Heredia MD ? 03/24/2013 ??6:23 PM CXR: ??NAD Procedure Note Isidro Heredia MD - 03/24/2013 6:22 PM CST CXR: NAD Isidro Heredia MD DIAGNOSTIC IMAGING ORDERABLES documented in this encounter Visit Diagnoses Diagnosis Pleurisy- Primary documented in this encounter Care Teams Greaser And Oiler Relationship Specialty Start Date End Date Nolberto Nicole MD PCP - General 07/21/08 12/30/13 Isidro Heredia MD Rheumatology 02/09/11 documented as of this encounter
--- OUTSIDE RECORDS SUMMARY | 2024-05-10 18:50 | XMS_ITS | Encounter Summary ---
Author Organization [facility] Address [address] [facility] [place] [address] Care Team Providers Care Benefits Administrator Name Role Phone Nolberto Nicole MD Primary Care Provider [phone] Isidro Heredia MD Unavailable [phone] Encounter Details Date Type Department Care Team (Late Contact Info) Description 12/24/2012 Orders Only [facility] - Rheumatology [address] [place] [address] Mirela Rodrigez RN Rheumatoid arthritis (HCC) [...] (Late Contact Info) Description 06/03/2024 1:00 PM NET WEB DEVELOPER Appointment [facility] - Rheumatology [address] [place] [address] 06/03/2024 2:00 PM NET WEB DEVELOPER Office Visit [facility] - Rheumatology [address] [place] [address] Gloria Smith MD [address] [place] [phone] documented as of this encounter Visit Diagnoses Diagnosis Rheumatoid arthritis(714.0) ([facility])- Primary Rheumatoid arthritis documented in this encounter Care Teams Benefits Administrator Relationship Specialty Start Date End Date Nolberto Nicole MD PCP - General 07/21/08 12/30/13 Isidro Heredia MD Rheumatology 02/09/11 documented as of this encounter
--- OUTSIDE RECORDS SUMMARY | 2024-05-10 18:50 | XMS_ITS | Encounter Summary ---
Author Organization [facility] Address [address] [facility] [place] [address] Care Team Providers Care Physical Therapy Aides Teacher Name Role Phone Nolberto Nicole MD Primary Care Provider [phone] Isidro Heredia MD Unavailable [phone] Reason for Visit * Reason Comments Follow-up RA. wants to discuss Humira and Actemera Toenail fungus. rt big toe Chest Pain * Consult, Test & Treat (Routine) - Closed Specialty Diagnoses / Procedures Referred By Contac t Referred To Contact Diagnoses Rheumatoid arthritis(714.0) ([facility]) Procedures OK OFFICE VISIT DURING HOURS Nolberto Nicole MD [address] [place] [address] Isidro Heredia MD [address] [place] [address] Referral ID Status Reason Start Date Expiration Date Visits Re quested Visits Authorized [id number] Closed 01/06/2011 07/04/2011 1 5 Encounter Details Date Type Department Care Team (Late st Contact Info) Description 05/15/2011 5:15 PM COUNTER TOP ASSEMBLER Office Visit [facility] Natural Dentist [facility] - Rheumatology [address] [place] [address] Isidro Heredia MD [address] [facility] [place] [address] Rheumatoid arthritis (HCC) (Primary Dx); [...] 111.1 kg (245 lb) 05/15/2011 5:19 PM COUNTER TOP ASSEMBLER Height 177.8 cm (5' 10 ) 05/15/2011 5:19 PM COUNTER TOP ASSEMBLER Body Mass Index 35.15 05/15/2011 5:19 PM COUNTER TOP ASSEMBLER documented in this encounter Progress Notes * Rea Hagan MA - 05/23/2011 12:12 PM CSTQuick Note: Sent lab letter to pt TER TOP ASSEMBLER * Isidro Heredia MD - 05/19/2011 7:38 PM CSTQuick Note: All labs ok Chol 191 TER TOP ASSEMBLER * Isidro Heredia MD - 05/15/2011 5:47 [...] PO) Take by mouth once daily. ??? Bjshriqwrsq-Nvrqlokju-Uax C-Mn (GLUCOSAMINE CHONDR 1500 COMPLX PO) Take [...] 4 weeks Check on status of actemra TER TOP ASSEMBLER documented in this encounter Plan of Treatment Upcoming Encounters Date Type Department Care Team (Late st Contact Info) Description 06/03/2024 1:00 PM COUNTER TOP ASSEMBLER Appointment [facility] - Rheumatology [address] [place] [address] [phone] 06/03/2024 2:00 PM COUNTER TOP ASSEMBLER Office Visit [facility] - Rheumatology [address] [place] [address] Gloria Smith MD [address] [place] [phone] documented as of this encounter Procedures Procedure Name Priority Date/Time Associated Diagnosis Comments LIPID PROFILE W LDL/HDL RATIO Routine 05/15/2011 6:06 PM COUNTER TOP ASSEMBLER Hyperlipidemia C-REACTIVE PROTEIN Routine 05/15/2011 6: 06 PM COUNTER TOP ASSEMBLER Rheumatoid arthritis (HCC) ERYTHROCYTE SEDIMENTATION RATE Routine 05/15/2011 6:06 PM COUNTER TOP ASSEMBLER Rheumatoid arthritis (HCC) CBC W AUTO DIFFERENTIAL Routine 05/15/2011 6:06 PM COUNTER TOP ASSEMBLER Rheumatoid arthritis (HCC) COMPREHENSIVE METABOLIC PANEL Routine 05/15/2011 6:06 PM COUNTER TOP ASSEMBLER Rheumatoid arthritis (HCC) documented in this encounter Results * C-REACTIVE PROTEIN (05/15/2011 6:06 PM COUNTER TOP ASSEMBLER) C-Reactive Protein 2.1 0.0 - 4.9 mg/L [facility] ACCOUNT BILL Blood specimen (specimen) BLOOD SPECIMEN / Unknown 05/15/2011 6:06 PM COUNTER TOP ASSEMBLER 05/15/2011 9:47 PM COUNTER TOP ASSEMBLER Narrative Resulting Agency Comment [facility] [address] ??[facility] [phone] Isidro Heredia MD LAB - CHEMISTRY ORD ERABLES [facility] ACCOUNT BILL * (ABNORMAL) LIPID PROFILE W LDL/HDL (PO REF LAB) (05/15/2011 6:06 PM COUNTER TOP ASSEMBLER) Cholesterol 191 100 - 199 mg/dL [facility] [...] BLOOD SPECIMEN / Unknown 05/15/2011 6:06 PM COUNTER TOP ASSEMBLER 05/15/2011 9:47 PM COUNTER TOP ASSEMBLER Narrative Resulting Agency Comment [facility] [address] ??[facility] [phone] Isidro Heredia MD LAB - CHEMISTRY ORD ERABLES Performing Organization Address City/[facility]/ZIP Co de Phone Number [facility] ACCOUNT BILL * SED RATE WESTERGREN AUTO (05/15/2011 6:06 PM COUNTER TOP ASSEMBLER) Erythrocyte Sedimentation Rate Westergren 15 0 - 15 mm/hr [facility] ACCOUNT BILL Comment:Please note refere nce interval change Blood specimen (specimen) BLOOD SPECIMEN / Unknown 05/15/2011 6:06 PM COUNTER TOP ASSEMBLER 05/15/2011 9:47 PM COUNTER TOP ASSEMBLER Narrative Resulting Agency Comment [facility] [address] [facility] ??[facility] [phone] Isidro Heredia MD LAB - HEMATOLOGY OR DERABLES Performing Organization Address City/[facility]/ZIP Co de Phone Number [facility] ACCOUNT BILL * (ABNORMAL) COMPREHENSIVE METABOLIC PANEL (05/15/2011 6:06 PM COUNTER TOP ASSEMBLER) Glucose 120(H) 65 - 99 mg/dL [facility] [...] BLOOD SPECIMEN / Unknown 05/15/2011 6:06 PM COUNTER TOP ASSEMBLER 05/15/2011 9:47 PM COUNTER TOP ASSEMBLER Narrative Resulting Agency Comment [facility] [address] ??[facility] [phone] Isidro Heredia MD LAB - CHEMISTRY ORD ERABLES [facility] ACCOUNT BILL * (ABNORMAL) CBC W AUTO DIFFERENTIAL (05/15/2011 6:06 PM COUNTER TOP ASSEMBLER) WBC 9.2 4.0 - 10.5 x10E3/uL [facility] [...] BLOOD SPECIMEN / Unknown 05/15/2011 6:06 PM COUNTER TOP ASSEMBLER 05/15/2011 9:47 PM COUNTER TOP ASSEMBLER Narrative Resulting Agency Comment [facility] [address] ??[facility] [phone] Isidro Heredia MD LAB - HEMATOLOGY OR DERABLES [facility] ACCOUNT BILL documented in this encounter Visit Diagnoses Diagnosis Rheumatoid arthritis(714.0) ([facility])- Primary Rheumatoid arthritis Triceps tendonitis Other enthesopathy of elbow region Hyperlipidemia Other and unspecified hyperlipidemia documented in this encounter Care Teams Physical Therapy Aides Teacher Relationship Specialty Start Date End Date Nolberto Nicole MD PCP - General 07/21/08 12/30/13 Isidro Heredia MD Rheumatology 02/09/11 documented as of this encounter
--- OUTSIDE RECORDS SUMMARY | 2024-05-10 18:50 | XMS_ITS | Encounter Summary ---
Author Organization [facility] Address [address] [facility] [place] [address] Care Team Providers Care Background Check Coordinator Name Role Phone Nolberto Nicole MD Primary Care Provider [phone] Isidro Heredia MD Unavailable [phone] Reason for Visit * Treatment (Routine) - Closed Specialty Diagnoses / Procedures Referred By Lawrence shah Referred To Contact Infusion Therapy Nurse Diagnoses Rheumatoid arthritis(714.0) ([facility]) Procedures GA INJECTION RITUXIMAB 100 MG Nolberto Nicole MD [address] [place] [address] Referral ID Status Reason Start Date Expiration Date Visits Re quested Visits Authorized [id number] Closed 04/30/2012 04/29/2013 1 4 Encounter Details Date Type Department Care Team (Late st Contact Info) Description 12/26/2012 10:18 AM CDT - 12/26/2012 11:59 PM CDT Hospital Encounter [facility] - Rheumatology [address] [place] [address] Isidro Heredia MD [address] [place] [address] Discharge Disposition: Home or Self Care [...] Rodrigez, TOVA - 12/26/2012 11:17 AM CDT [place] Rheumatology Post Infusion instructions You [...] through Sunday 9-5 call the office at [phone] After hours or on the weekend call the exchange at [phone] If you have had lab work done [...] Sig Dispensed Refills Start Date End Date Rvjezxhbatp-Mokoptekw-I it C-Mn (GLUCOSAMINE CHONDR 1500 COMPLX PO) [...] 12/26/2012 11:12 AM CDT JOSE Chalino Deng [id number] 12/26/2012 BP 129/75 Pulse 81 Temp 98.4 [...] st Contact Info) Description 06/03/2024 1:00 PM SILK SCREEN PRINTER HELPER Appointment [facility] - Rheumatology [address] [place] [address] 06/03/2024 2:00 PM SILK SCREEN PRINTER HELPER Office Visit [facility] - Rheumatology [address] [place] [address] Gloria Smith MD [address] [place] [phone] documented as of this encounter Visit [...] mg documented in this encounter Care Teams Background Check Coordinator Relationship Specialty Start Date End Date Nolberto Nicole MD PCP - General 07/21/08 12/30/13 Isidro Heredia MD Rheumatology 02/09/11 documented as of this encounter
--- OUTSIDE RECORDS SUMMARY | 2024-05-10 18:50 | XMS_ITS | Encounter Summary ---
Author Organization [facility] Address [address] [facility] [place] [address] Care Team Providers Care Balance Engineer Name Role Phone Nolberto Nicole MD Primary Care Provider [phone] Isidro Heredia MD Unavailable Reason for Visit * Reason Comments Rheumatoid Arthritis pain scale: 5/10 am stiffness: yes tolerating meds well no fever no abdominal pain Upper Extremity Problem fingers and hand s are stiff * Consult, Test & Treat (Routine) - Closed Specialty Diagnoses / Procedures Referred By Contsarahi t Referred To Contact Diagnoses Rheumatoid arthritis(714.0) ([facility]) Procedures [place] OFFICE VISIT DURING HOURS Nolberto Nicole MD [address] [place] [address] Isidro Heredia MD [address] [place] [address] Referral ID Status Reason Start Date Expiration Date Visits Re quested Visits Authorized [id number] Closed 07/02/2012 12/29/2012 1 6 Encounter Details Date Type Department Care Team (Late st Contact Info) Description 08/19/2012 4:45 PM CDT Office Visit [facility] [employer] [facility] - Rheumatology [address] [place] [address] [phone] Isidro Heredia MD [address] [place] [address] Rheumatoid arthritis (HCC) (Primary Dx); [...] PO) Take by mouth once daily. ??? Hsykuxvmmrb-Neerbjsig-Plc C-Mn (GLUCOSAMINE CHONDR 1500 COMPLX PO) Take [...] st Contact Info) Description 06/03/2024 1:00 PM SLOPE TENDER Appointment [facility] - Rheumatology [address] [place] [address] 06/03/2024 2:00 PM SLOPE TENDER Office Visit [facility] - Rheumatology [address] [place] [address] Gloria Smith MD [address] [place] [phone] documented as of this encounter Visit Diagnoses Diagnosis Rheumatoid arthritis(714.0) (HCC)- Primary Rheumatoid arthritis Chronic pain syndrome documented in this encounter Care Teams Balance Engineer Relationship Specialty Start Date End Date Nolberto Nicole MD PCP - General 07/21/08 12/30/13 Isidro Heredia MD Rheumatology 02/09/11 documented as of this encounter
--- OUTSIDE RECORDS SUMMARY | 2024-05-10 18:50 | XMS_ITS | Encounter Summary ---
Author Organization [facility] Address [address] [facility] [place] [address] Care Team Providers Care Toy Trains And Accessories Salesperson Name Role Phone Nolberto Nicole MD Primary Care Provider [phone] Isidro Heredia MD Unavailable [phone] Reason for Visit * Reason Comments Follow-up ra Pain Arm difficult to lift le ft arm. very sore. Swelling Hand obdulia Pain Knee obdulia Fatigue Pain Wrist obdulia Encounter Details Date Type Department Care Team (Late st Contact Info) Description 09/04/2011 4:30 PM CDT Office Visit [facility] - Rheumatology [address] [place] [address] Isidro Heredia MD [address] [place] [address] Rheumatoid arthritis (HCC) (Primary Dx); Triceps [...] Body Mass Index 34.72 05/15/2011 5:19 PM SAND TEMPERER documented in this encounter Progress Notes * [...] PO) Take by mouth once daily. ??? Qgqyossllwj-Lqdrwpsog-Iip C-Mn (GLUCOSAMINE CHONDR 1500 COMPLX PO) Take [...] st Contact Info) Description 06/03/2024 1:00 PM SAND TEMPERER Appointment [facility] - Rheumatology [address] [place] [address] 06/03/2024 2:00 PM SAND TEMPERER Office Visit [facility] - Rheumatology [address] [place] [address] Gloria Smith MD [address] [place] [phone] documented as of this encounter Procedures [...] PM CDT Narrative Resulting Agency Comment [facility] [address] [facility] ??[facility] [phone] Isidro Heredia MD LAB - HEMATOLOGY OR DERABLES [facility] ACCOUNT BILL * (ABNORMAL) C-REACTIVE PROTEIN (09/04/2011 5:14 PM CDT) C-Reactive Protein 5.2(H) 0.0 - 4.9 mg/L [facility] ACCOUNT BILL Blood specimen (specimen) BLOOD SPECIMEN / Unknown 09/04/2011 5:14 PM CDT 09/04/2011 9:51 PM CDT Narrative Resulting Agency Comment [facility] [address] [facility] ??[facility] [phone] Isidro Heredia MD LAB - CHEMISTRY ORD [...] PM CDT Narrative Resulting Agency Comment [facility] [address] [facility] ??[facility] [phone] Isidro Heredia MD LAB - CHEMISTRY ORD [...] PM CDT Narrative Resulting Agency Comment [facility] [address] [facility] ??[facility] [phone] Isidro Heredia MD LAB - HEMATOLOGY OR DERABLES [facility] ACCOUNT BILL documented in this encounter Visit Diagnoses Diagnosis Rheumatoid arthritis(714.0) ([facility])- Primary Rheumatoid arthritis Triceps tendonitis Other enthesopathy of elbow region Subacromial bursitis Other specified disorders of rotator cuff syndrome of shoulder and allied disorders documented in this encounter Care Teams Toy Trains And Accessories Salesperson Relationship Specialty Start Date End Date Nolberto Nicole MD PCP - General 07/21/08 12/30/13 Isidro Heredia MD Rheumatology 02/09/11 documented as of this encounter
--- OUTSIDE RECORDS SUMMARY | 2024-05-10 18:50 | XMS_ITS | Encounter Summary ---
Author Organization [facility] Address [address] [facility] [place] [address] Care Team Providers Care Hall Supervisor Name Role Phone Nolberto Nicole MD Primary Care Provider [phone] Isidro Heredia MD Unavailable [phone] Reason for Visit * Reason Comments Follow-up ra Encounter Details Date Type Department Care Team (Late st Contact Info) Description 11/06/2011 5:30 PM CDT Office Visit [facility] - Rheumatology [address] [place] [address] Isidro Heredia MD [address] [place] [address] Rheumatoid arthritis (HCC) (Primary Dx); Triceps [...] Body Mass Index 35.33 05/15/2011 5:19 PM LAST DIPPER documented in this encounter Progress Notes * [...] PO) Take by mouth once daily. ??? Ohueqbjbvpn-Fvbeolkjf-Ime C-Mn (GLUCOSAMINE CHONDR 1500 COMPLX PO) Take [...] Description 06/03/2024 1:00 PM LAST DIPPER Appointment [facility] - Rheumatology [address] [place] [address] 06/03/2024 2:00 PM LAST DIPPER Office Visit [facility] - Rheumatology [address] [place] [address] Gloria Smith MD [address] [place] [phone] documented as of this encounter Procedures Procedure Name Priority Date/Time Associated Diagnosis Comments C-REACTIVE PROTEIN Routine 11/06/2011 6: 21 PM CDT Rheumatoid arthritis (HCC) ERYTHROCYTE SEDIMENTATION RATE Routine 11/06/2011 6:21 PM CDT Rheumatoid arthritis (HCC) CBC W AUTO DIFFERENTIAL Routine 11/06/2011 6:21 PM CDT Rheumatoid arthritis ([facility]) COMPREHENSIVE METABOLIC PANEL Routine 11/06/2011 6:21 [...] CDT Narrative Resulting Agency Comment [facility] [address] ??[facility] [phone] Isidro Heredia MD LAB - HEMATOLOGY OR DERABLES Performing Organization Address [facility] de Phone Number [facility] ACCOUNT BILL * C-REACTIVE PROTEIN (11/06/2011 6:21 PM CDT) Pathologist [facility] C-Reactive Protein 2.0 0.0 - 4.9 mg/L [facility] ACCOUNT BILL Blood specimen (specimen) BLOOD SPECIMEN / Unknown 11/06/2011 6:21 PM CDT 11/06/2011 9:53 PM CDT Narrative Resulting Agency Comment [facility] [place] [address] [facility] ??[facility] [phone] Isidro Heredia MD LAB - CHEMISTRY ORD ERABLES Performing Organization Address City/[facility]/ZIP Co de Phone Number [facility] ACCOUNT [...] CDT Narrative Resulting Agency Comment [facility] [address] ??[facility] [phone] Isidro Heredia MD LAB - CHEMISTRY ORD ERABLES [facility] ACCOUNT BILL * (ABNORMAL) SED RATE WESTERGREN (11/06/2011 6:21 PM CDT) Erythrocyte Sedimentation Rate Westergren 24(H) 0 - 15 mm/hr [facility] ACCOUNT BILL Blood specimen (specimen) BLOOD SPECIMEN / Unknown 11/06/2011 6:21 PM CDT 11/06/2011 9:53 PM CDT Narrative Resulting Agency Comment [facility] [address] [facility] ??[facility] [phone] Isidro Heredia MD LAB - HEMATOLOGY OR DERABLES [facility] ACCOUNT BILL documented in this encounter Visit Diagnoses Diagnosis Rheumatoid arthritis(714.0) ([facility])- Primary Rheumatoid arthritis Triceps tendonitis Other enthesopathy of elbow region documented in this encounter Care Teams Hall Supervisor Relationship Specialty Start Date End Date Nolberto Nicole MD PCP - General 07/21/08 12/30/13 Isidro Heredia MD Rheumatology 02/09/11 documented as of this encounter
--- OUTSIDE RECORDS SUMMARY | 2024-05-10 18:50 | XMS_ITS | Encounter Summary ---
Author Organization [facility] Address [address] [facility] [place] [address] Care Team Providers Care Party Supply Specialist Name Role Phone Nolberto Nicole MD Primary Care Provider [phone] Isidro Heredia MD Unavailable [phone] Reason for Visit * Reason Comments Rheumatoid [...] To Contact Diagnoses Rheumatoid arthritis(714.0) ([facility]) Procedures [place] OFFICE VISIT DURING HOURS Nolberto Nicole MD [address] [place] [address] Isidro Heredia MD [address] [place] [address] Referral ID Status Reason Start Date Expiration Date Visits Re quested Visits Authorized [id number] Closed 08/15/2012 02/11/2013 1 5 Encounter Details Date Type Department Care Team (Late st Contact Info) Description 10/14/2012 5:00 PM CDT Office Visit [facility] - Rheumatology [address] [place] [address] Isidro Heredia MD [facility] [place] [address] Rheumatoid arthritis (HCC) (Primary Dx); Chronic pain [...] PO) Take by mouth once daily. ??? Eoutltoeqnb-Ttbltgviv-Nns C-Mn (GLUCOSAMINE CHONDR 1500 COMPLX PO) Take [...] st Contact Info) Description 06/03/2024 1:00 PM NANOSYSTEMS ENGINEER Appointment [facility] - Rheumatology [address] [place] [address] 06/03/2024 2:00 PM NANOSYSTEMS ENGINEER Office Visit [facility] - Rheumatology [address] [place] [address] Gloria Smith MD [address] [place] [phone] documented as of this encounter Procedures [...] CDT Narrative Resulting Agency Comment [facility] [address] [facility] ??[facility] [phone] Isidro Heredia MD LAB - HEMATOLOGY OR DERABLES [facility] ACCOUNT BILL * (ABNORMAL) C-REACTIVE PROTEIN (10/14/2012 5:46 PM CDT) C-Reactive Protein 8.4(H) 0.0 - 4.9 mg/L [facility] ACCOUNT BILL Blood specimen (specimen) BLOOD SPECIMEN / Unknown 10/14/2012 5:46 PM CDT 10/14/2012 7:28 PM CDT Narrative Resulting Agency Comment [facility] ??[facility] [phone] Isidro Heredia MD LAB - CHEMISTRY ORD ERABLES Performing Organization Address City/[facility]/ZIP Co de Phone Number [facility] ACCOUNT [...] CDT Narrative Resulting Agency Comment [facility] [address] ??[facility] [phone] Isidro Heredia MD LAB - CHEMISTRY ORD [...] CDT Narrative Resulting Agency Comment [facility] [address] ??[facility] [phone] Isidro Heredia MD LAB - HEMATOLOGY OR DERABLES [facility] ACCOUNT BILL documented in this encounter Visit Diagnoses Diagnosis Rheumatoid arthritis(714.0) (HCC)- Primary Rheumatoid arthritis Chronic pain syndrome documented in this encounter Care Teams Party Supply Specialist Relationship Specialty Start Date End Date Nolberto Nicole MD PCP - General 07/21/08 12/30/13 Isidro Heredia MD Rheumatology 02/09/11 documented as of this encounter
--- OUTSIDE RECORDS SUMMARY | 2024-05-10 18:50 | XMS_ITS | Encounter Summary ---
Author Organization [facility] Address [address] [facility] [place] [address] Care Team Providers Care Stone Sawyer Name Role Phone Nolberto Nicole MD Primary Care Provider [phone] Isidro Heredia MD Unavailable [phone] Reason for Visit * Treatment (Routine) - Closed Specialty Diagnoses / Procedures Referred By Lawrence shah Referred To Contact Infusion Therapy Nurse Diagnoses Rheumatoid arthritis(714.0) ([facility]) Procedures NE INJECTION TOCILIZUMAB 1 MG Isidro Heredia MD [address] [facility] [place] [address] Referral ID Status Reason Start Date Expiration Date Visits Re quested Visits Authorized [id number] Closed 03/07/2013 06/05/2013 1 5 Encounter Details Date Type Department Care Team (Late st Contact Info) Description 04/11/2013 9:14 AM WEB PRESSMAN - 04/11/2013 11:59 PM WEB PRESSMAN Hospital Encounter [facility] - Rheumatology [address] [place] [address] Isidro Heredia MD [address] [place] [address] Discharge Disposition: Home or Self [...] Comments Blood Pressure 133/86 04/11/2013 9:34 AM WEB PRESSMAN Pulse 103 04/11/2013 9:34 AM WEB PRESSMAN Temperature 36.7 ??C (98.1 ??F) 04/11/2013 9:34 AM CS T Respiratory Rate 16 04/11/2013 9:34 AM WEB PRESSMAN Oxygen Saturation - - Inhaled Oxygen Concentration - - Weight 113.4 kg (250 lb) 04/11/2013 9:34 AM WEB PRESSMAN Height 177.8 cm (5' 10 ) 04/11/2013 9:34 AM WEB PRESSMAN Body Mass Index 35.87 04/11/2013 9:34 AM WEB PRESSMAN documented in this encounter Discharge Instructions * Discharge Instructions* Mirela Rodrigez, RN - 04/11/2013 9:51 AM WEB PRESSMAN [place] Rheumatology Post Infusion instructions You have [...] through Sunday 9-5 call the office at [phone] After hours or on the weekend call the exchange at [phone] If you have had lab work done [...] Hospital as your provider. Mirela Rodrigez RN PRESSMAN * Discharge Instructions* Document, Scanned - 04/21/2013 8:34 PM WEB PRESSMAN PRESSMAN documented in this encounter Medications at Time of Discharge Medication Sig Dispensed Refills Start Date End Date Huvgdvblgfy-Bdrnvexmg-Ro t C-Mn (GLUCOSAMINE CHONDR 1500 COMPLX PO) [...] - 04/11/2013 9:48 AM CST JOSE Deng [id number] 04/11/2013 BP 133/86 Pulse 103 Temp 98.1 [...] Next treatment? 4 weeks Mirela Rodrigez RN PRESSMAN documented in this encounter Miscellaneous Notes * Miscellaneous Scans - Document, Scanned - 04/21/2013 8:33 PM CST PRESSMAN documented in this encounter Plan of Treatment Upcoming Encounters Date Type Department Care Team (Late st Contact Info) Description 06/03/2024 1:00 PM WEB PRESSMAN Appointment [facility] - Rheumatology [address] [place] [address] 06/03/2024 2:00 PM WEB PRESSMAN Office Visit [facility] - Rheumatology [address] [place] [address] Gloria Smith MD [address] [place] [phone] documented as of this encounter Visit Diagnoses Not on filedocumented in this encounter Administered Medications Inactive Administered Medications - up to 3 most recent administrations Medication Order MAR Action Action Date Dose Rate Site tocilizumab (ACTEMRA) 460 mg in NaCl 0.9 % IVPB 460 mg, at 100 mL/hr, Intravenous, ONCE, 1 dose, On Sun04/11/13 at 0945 $ Given 04/11/2013 9:48 AM WEB PRESSMAN 460 mg 100 mL/hr documented in this encounter Care Teams Stone Sawyer Relationship Specialty Start Date End Date Nolberto Nicole MD PCP - General 07/21/08 12/30/13 Isidro Heredia MD Rheumatology 02/09/11 documented as of this encounter
--- OUTSIDE RECORDS SUMMARY | 2024-05-10 18:50 | XMS_ITS | Encounter Summary ---
Author Organization [facility] Address [address] [place] [address] Care Team Providers Care Newspaper Deliverer Name Role Phone Nolberto Nicole MD Primary Care Provider Isidro Heredia MD Unavailable [phone] Reason for Referral * - Closed Specialty Diagnoses / Procedures Referred By Contac t Referred To Contact Diagnoses Pleurisy Abdominal pain Procedures CT THORAX ABDOMEN PELVIS W CONT Isidro Heredia MD [address] [place] [address] Referral ID Status Reason Start Date Expiration Date Visits Re quested Visits Authorized [id number] Closed 03/25/2013 09/21/2013 1 1 KING AND SAWING MACHINE OPERATOR Reason for Visit * - Closed Specialty Diagnoses / Procedures Referred By Contac t Referred To Contact Diagnoses Pleurisy Abdominal pain Procedures CT THORAX ABDOMEN PELVIS W CONT Isidro Heredia MD [address] [place] [address] Referral ID Status Reason Start Date Expiration Date Visits Re quested Visits Authorized [id number] Closed 03/25/2013 09/21/2013 1 1 Encounter Details Date Type Department Care Team (Late st Contact Info) Description 03/25/2013 8:41 AM CHUCKING AND SAWING MACHINE OPERATOR - 03/25/2013 11:59 PM CHUCKING AND SAWING MACHINE OPERATOR Hospital Encounter [facility] Health Imaging Services - CT Scan [address] [place] [address] Isidro Heredia MD [address] [facility] [place] [address] Discharge Disposition: Home or Self Care Social [...] Sig Dispensed Refills Start Date End Date Jihyiwjdcgq-Tyojwrqzi-C it C-Mn (GLUCOSAMINE CHONDR 1500 COMPLX PO) [...] oxycodone-acetaminophen (PERCOCET) 5-325 MG tabletIndications:Rheum atoid arthritis(714.0) ([facility]) Take 1 Tab by mouth every 6 [...] Ct chest nl Ct abd benign diverticulosis KING AND SAWING MACHINE OPERATOR documented in this encounter Plan of Treatment Upcoming Encounters Date Type Department Care Team (Late st Contact Info) Description 06/03/2024 1:00 PM CHUCKING AND SAWING MACHINE OPERATOR Appointment [facility] - Rheumatology [address] [place] [address] 06/03/2024 2:00 PM CHUCKING AND SAWING MACHINE OPERATOR Office Visit [facility] - Rheumatology [address] [place] [address] Gloria Smith MD [address] [place] [phone] documented as of this encounter Procedures Procedure Name Priority Date/Time Associated Diagnosis Comments CT CHEST ABDOMEN PELVIS W CONT Routine 03/25/2013 8:59 AM CHUCKING AND SAWING MACHINE OPERATOR Pleurisy Abdominal pain documented in this encounter Results * CT THORAX ABDOMEN PELVIS W CONT (03/25/2013 8:59 AM CHUCKING AND SAWING MACHINE OPERATOR) Anatomical Region Laterality Modality Chest, Abdomen, Pelvis Computed Tomography 03/25/2013 11:5 3 AM CHUCKING AND SAWING MACHINE OPERATOR Narrative 03/25/2013 11:57 AM CHUCKING AND SAWING MACHINE OPERATOR Examination: CT chest with contrast. Indication [...] at 0117 $ Given 03/25/2013 8:59 AM CHUCKING AND SAWING MACHINE OPERATOR 80 mL Right Arm documented in this encounter Care Teams Newspaper Deliverer Relationship Specialty Start Date End Date Nolberto Nicole MD PCP - General 07/21/08 12/30/13 Isidro Heredia MD Rheumatology 02/09/11 documented as of this encounter
--- OUTSIDE RECORDS SUMMARY | 2024-05-10 18:50 | XMS_ITS | Encounter Summary ---
Author Organization [facility] Address [address] [facility] [place] [address] Care Team Providers Care Embedded Systems Software Engineer Name Role Phone Nolberto Nicole MD Primary Care Provider [phone] Isidro Heredia MD Unavailable [phone] Encounter Details Date Type Department Care Team (Late st Contact Info) Description 09/02/2012 Orders Only [facility] - Rheumatology [address] [place] [address] [phone] Isidro Heredia MD [address] [place] [address] Rheumatoid arthritis (HCC) Social History Tobacco [...] st Contact Info) Description 06/03/2024 1:00 PM WHITE SIDEWALL TIRE BUFFER Appointment [facility] - Rheumatology [address] [place] [address] [phone] 06/03/2024 2:00 PM WHITE SIDEWALL TIRE BUFFER Office Visit [facility] - Rheumatology [address] [place] [address] Gloria Smith MD [address] [place] [phone] documented as of this encounter Procedures Procedure [...] PM CDT Narrative Resulting Agency Comment [facility] [address] [facility] ??[facility] [phone] Isidro Heredia MD LAB - HEMATOLOGY OR [...] CDT Narrative Resulting Agency Comment [facility] [address] ??[facility] [phone] Isidro Heredia MD LAB - CHEMISTRY ORD [...] CDT Narrative Resulting Agency Comment [facility] [address] ??[facility] [phone] Isidro Heredia MD LAB - HEMATOLOGY OR DERABLES [facility] ACCOUNT BILL documented in this encounter Visit Diagnoses Diagnosis Rheumatoid arthritis(714.0) (HCC)- Primary Rheumatoid arthritis documented in this encounter Care Teams Embedded Systems Software Engineer Relationship Specialty Start Date End Date Nolberto Nicole MD PCP - General 07/21/08 12/30/13 Isidro Heredia MD Rheumatology 02/09/11 documented as of this encounter
--- OUTSIDE RECORDS SUMMARY | 2024-05-10 18:50 | XMS_ITS | Encounter Summary ---
Author Organization [facility] Address [address] [place] [address] Care Team Providers Care Teletypewriter Operator Name Role Phone Nolberto Nicole MD Primary Care Provider [phone] Isidro Heredia MD Unavailable [phone] Encounter Details Date Type Department Care Team (Late st Contact Info) Description 06/10/2013 Orders Only [facility] - Rheumatology [address] [place] [address] [phone] Isidro Heredia MD [address] [place] [phone] Rheumatoid arthritis (HCC) Social History Tobacco [...] Letter mailed to patient regarding lab results. SERVICE TECHNICIAN * Isidro Heredia MD - 06/18/2013 6:54 AM CSTQuick Note: bs 155 mtx ok SERVICE TECHNICIAN documented in this encounter Plan of Treatment Upcoming Encounters Date Type Department Care Team (Late st Contact Info) Description 06/03/2024 1:00 PM HOME SERVICE TECHNICIAN Appointment [facility] - Rheumatology [address] [place] [address] [phone] 06/03/2024 2:00 PM HOME SERVICE TECHNICIAN Office Visit [facility] - Rheumatology [address] [place] [address] Gloria Smith MD [address] [place] [phone] documented as of this encounter Procedures Procedure Name Priority Date/Time Associated Diagnosis Comments ERYTHROCYTE SEDIMENTATION RATE Routine 06/10/2013 3:30 PM HOME SERVICE TECHNICIAN Rheumatoid Arthritis (Hcc) CBC W AUTO DIFFERENTIAL Routine 06/10/2013 3:30 PM HOME SERVICE TECHNICIAN Rheumatoid Arthritis (Hcc) COMPREHENSIVE METABOLIC PANEL Routine 06/10/2013 3:30 PM HOME SERVICE TECHNICIAN Rheumatoid Arthritis (Hcc) documented in this encounter Results * SED RATE WESTERGREN (06/10/2013 3:30 PM HOME SERVICE TECHNICIAN) Erythrocyte Sedimentation Rate Westergren 29 0 - 30 mm/hr [facility] ACCOUNT BILL Blood specimen (specimen) BLOOD SPECIMEN / Unknown 06/10/2013 3:30 PM HOME SERVICE TECHNICIAN 06/10/2013 5:37 PM HOME SERVICE TECHNICIAN Narrative Resulting Agency Comment [facility] [place] [address] [facility] ??[facility] [phone] Isidro Heredia MD LAB - HEMATOLOGY OR DERABLES [facility] ACCOUNT BILL * (ABNORMAL) COMPREHENSIVE METABOLIC PANEL (06/10/2013 3:30 PM HOME SERVICE TECHNICIAN) Glucose 155(H) 65 - 99 mg/dL [facility] [...] BLOOD SPECIMEN / Unknown 06/10/2013 3:30 PM HOME SERVICE TECHNICIAN 06/10/2013 5:37 PM HOME SERVICE TECHNICIAN Narrative Resulting Agency Comment [facility] [address] ??[facility] [phone] Isidro Heredia MD LAB - CHEMISTRY ORD ERABLES [facility] ACCOUNT BILL * (ABNORMAL) CBC W AUTO DIFFERENTIAL (06/10/2013 3:30 PM HOME SERVICE TECHNICIAN) WBC 9.9 3.4 - 10.8 x10E3/uL [facility] [...] BLOOD SPECIMEN / Unknown 06/10/2013 3:30 PM HOME SERVICE TECHNICIAN 06/10/2013 5:37 PM HOME SERVICE TECHNICIAN Narrative Resulting Agency Comment [facility] [address] ??[facility] [phone] Isidro Heredia MD LAB - HEMATOLOGY OR DERABLES [facility] ACCOUNT BILL documented in this encounter Visit Diagnoses Diagnosis Rheumatoid arthritis(714.0) (HCC)- Primary Rheumatoid arthritis documented in this encounter Care Teams Teletypewriter Operator Relationship Specialty Start Date End Date Nolberto Nicole MD PCP - General 07/21/08 12/30/13 Isidro Heredia MD Rheumatology 02/09/11 documented as of this encounter
--- OUTSIDE RECORDS SUMMARY | 2024-05-10 18:50 | XMS_ITS | Encounter Summary ---
Author Organization [facility] Address [address] [facility] [place] [address] Care Team Providers Care Pit Inspector Name Role Phone Nolberto Nicole MD Primary Care Provider [phone] Isidro Heredia MD Unavailable [phone] Reason for Visit * Reason Comments Rheumatoid [...] shah Referred To Contact Diagnoses Rheumatoid arthritis(714.0) ([facility]) Procedures [place] OFFICE VISIT DURING HOURS Nolberto Nicole MD [address] [place] [address] Isidro Heredia MD [address] [place] [address] Referral ID Status Reason Start Date Expiration Date Visits Re quested Visits Authorized [id number] Closed 03/14/2013 09/11/2013 1 6 Encounter Details Date Type Department Care Team (Late st Contact Info) Description 06/10/2013 2:15 PM SERVICES EXECUTIVE Office Visit [facility] - Rheumatology [address] [place] [address] Isidro Heredia MD [address] [place] [address] Rheumatoid arthritis (HCC) (Primary Dx); Chronic pain [...] Comments Blood Pressure 130/80 06/10/2013 2:17 PM SERVICES EXECUTIVE Pulse 88 06/10/2013 2:17 PM SERVICES EXECUTIVE Temperature - - Respiratory Rate - - Oxygen Saturation - - Inhaled Oxygen Concentration - - Weight 113.4 kg (250 lb) 06/10/2013 2:17 PM SERVICES EXECUTIVE Height - - Body Mass Index 35.87 06/10/2013 2:00 PM SERVICES EXECUTIVE documented in this encounter Progress Notes * [...] Active Take by mouth once daily. ??? Ndsvtjiisnv-Kxhdnchtc-Lty C-Mn (GLUCOSAMINE CHONDR 1500 COMPLX PO) Active [...] Follow up in office in 4 weeks ICES EXECUTIVE documented in this encounter Plan of Treatment Upcoming Encounters Date Type Department Care Team (Late st Contact Info) Description 06/03/2024 1:00 PM SERVICES EXECUTIVE Appointment [facility] - Rheumatology [address] [place] [address] [phone] 06/03/2024 2:00 PM SERVICES EXECUTIVE Office Visit [facility] - Rheumatology [address] [place] [address] [phone] Gloria Smith MD [address] [place] [phone] documented as of this encounter Visit Diagnoses Diagnosis Rheumatoid arthritis(714.0) (HCC)- Primary Rheumatoid arthritis Chronic pain syndrome Hyperlipidemia Other and unspecified hyperlipidemia documented in this encounter Care Teams Pit Inspector Relationship Specialty Start Date End Date Nolberto Nicole MD PCP - General 07/21/08 12/30/13 Isidro Heredia MD Rheumatology 02/09/11 documented as of this encounter
--- OUTSIDE RECORDS SUMMARY | 2024-05-10 18:50 | XMS_ITS | Encounter Summary ---
Author Organization [facility] Address [address] [address] Care Team Providers Care Extrusion Line Operator Name Role Phone Nolberto Nicole MD Primary Care Provider [phone] Isidro Heredia MD Unavailable [phone] Reason for Visit * Reason Comments Cough Encounter Details Date Type Department Care Team (Latest Contact Info) Description 07/22/2012 4:15 PM CDT Procedure visit [facility] Family Medicine [address] [place] [address] Rheumatoid arthritis (HCC) Social History Tobacco [...] Contact Info) Description 06/03/2024 1:00 PM SUPERVISOR SPECIAL SERVICES Appointment [facility] - Rheumatology [address] [place] [address] 06/03/2024 2:00 PM SUPERVISOR SPECIAL SERVICES Office Visit [facility] - Rheumatology [address] [place] [phone] Gloria Smith MD [address] [place] [phone] documented as of this encounter Procedures Procedure Name Priority Date/Time Associated Diagnosis Comments XR CHEST 2VW Routine 09/10/2012 4:17 PM CDT Rheumatoid arthritis (HCC) documented in this encounter Visit Diagnoses Diagnosis Rheumatoid arthritis(714.0) (HCC) Rheumatoid arthritis documented in this encounter Care Teams Extrusion Line Operator Relationship Specialty Start Date End Date Nolberto Nicole MD PCP - General 07/21/08 12/30/13 Isidro Heredia MD Rheumatology 02/09/11 documented as of this encounter
--- OUTSIDE RECORDS SUMMARY | 2024-05-10 18:50 | XMS_ITS | Encounter Summary ---
Author Organization [facility] Address [address] [place] [address] Care Team Providers Care Service Engine Repairer Name Role Phone Nolberto Nicole MD Primary Care Provider [phone] Isidro Heredia MD Unavailable [phone] Reason for Visit * Reason Onset Date Comments Follow-up 04/15/2012 Encounter Details Date Type Department Care Team (Late st Contact Info) Description 04/15/2012 Telephone [facility] - Rheumatology [address] [place] [address] Isidro Heredia MD [address] [place] [phone] Follow-up Social History Tobacco Use Types [...] 4:07 PM CST Informed pharmacy of note [employer] * Telephone Encounter - Rea Hagan MA - 04/15/2012 3:12 PM CST Please call pharm and let them know pt to take Prednisone bid. Thanks! [employer] * Telephone Encounter - ParrishYasmeen - 04/15/2012 9:26 AM CST [facility] CALLED 2 DIFF INSTRUCTIONS ON HIS PREDINSONE 1 ONCE DAILY THEN IT SAYS 1 IN AM 1 PM PLEASE CALL BACK TO CONFIRM [phone] [employer] documented in this encounter Plan of Treatment Upcoming Encounters Date Type Department Care Team (Late st Contact Info) Description 06/03/2024 1:00 PM DIRECTOR BIOLOGICS Appointment [facility] - Rheumatology [address] [place] [address] 06/03/2024 2:00 PM DIRECTOR BIOLOGICS Office Visit [facility] - Rheumatology [address] [place] [address] Gloria Smith MD [address] [place] [phone] documented as of this encounter Visit Diagnoses Not on filedocumented in this encounter Care Teams Service Engine Repairer Relationship Specialty Start Date End Date Nolberto Nicole MD PCP - General 07/21/08 12/30/13 Isidro Heredia MD Rheumatology 02/09/11 documented as of this encounter
--- OUTSIDE RECORDS SUMMARY | 2024-05-10 18:50 | XMS_ITS | Encounter Summary ---
Author Organization [facility] Address [address] [place] [address] [place] [address] Care Team Providers Care Diving Board Assembler Name Role Phone Nolberto Nicole MD Primary Care Provider [phone] Isidro Heredia MD Unavailable Reason for Visit * Reason Onset Date Comments Results 04/02/2013 Encounter Details Date Type Department Care Team (Late st Contact Info) Description 04/02/2013 Telephone [facility] Medical [facility] - Family Medicine [address] [place] [address] Isidro Heredia MD [address] [place] [phone] Results Social History Tobacco Use Types [...] call on 04/04/13. Informed him per [employer], they due not allow phone in or fax scripts. Pt must bring in scripts. He given me [facility] number to send his rx over. Laterin the conversation, pt said to disregard calling in the prescriptions. He is feeling a lot better than before. He will call the office back if sx persist. OTIC FINISH GRINDING TECHNICIAN * Telephone Encounter - Rea Hagan MA - 04/04/2013 9:55 AM CST Lmr to call office with new pharm number [employer] FINISH GRINDING TECHNICIAN * Telephone Encounter - Rea Hagan MA - 04/03/2013 5:09 PM CST Informed pt per Dr Valiente results shows diverticulosis and its ok to restart infusion. Also he c/o side pain. Instruct to take Neurontin [address] Valiente. Pharm closed. He will call tomorrow with a local pharm number instead OTIC FINISH GRINDING TECHNICIAN * Telephone Encounter - Rea Hagan MA - 04/02/2013 4:22 PM CST This is noted. Results on Dr Valiente desk for review OTIC FINISH GRINDING TECHNICIAN * Telephone Encounter - Erika Julien - 04/02/2013 2:45 PM CST Pt wants his ct results , dr is holding his infusion till he finds out what is causing the pain OTIC FINISH GRINDING TECHNICIAN documented in this encounter Plan of Treatment Upcoming Encounters Date Type Department Care Team (Late st Contact Info) Description 06/03/2024 1:00 PM ORTHOTIC FINISH GRINDING TECHNICIAN Appointment [facility] - Rheumatology [address] [place] [address] 06/03/2024 2:00 PM ORTHOTIC FINISH GRINDING TECHNICIAN Office Visit [facility] - Rheumatology [address] [place] [address] [phone] Gloria Smith MD [address] [place] [address] [phone] documented as of this encounter Visit Diagnoses Not on filedocumented in this encounter Care Teams Diving Board Assembler Relationship Specialty Start Date End Date Nolberto Nicole MD PCP - General 07/21/08 12/30/13 Isidro Heredia MD Rheumatology 02/09/11 documented as of this encounter
--- OUTSIDE RECORDS SUMMARY | 2024-05-10 18:50 | XMS_ITS | Encounter Summary ---
Author Organization [facility] Address [address] [facility] [place] [address] Care Team Providers Care Legislative Advocate Name Role Phone Nolberto Nicole MD Primary Care Provider [phone] Isidro Heredia MD Unavailable [phone] Reason for Visit * Reason Comments Rheumatoid Arthritis pain scale: 7/10 am stiffness: all day tolerating meds well diarrhea:yes General since on the Rituxan her feels very complaint investigator the inside, no temp, off and on chills, joint soreness including whole spine, not sleeoing well get up 3-4 times a night Fatigue * Consult, Test & Treat (Routine) - Closed Specialty Diagnoses / Procedures Referred By Contsarahi t Referred To Contact Diagnoses Rheumatoid arthritis(714.0) ([facility]) Procedures [place] OFFICE VISIT DURING HOURS Nolberto Nicole MD [address] [place] [address] Isidro Heredia MD [address] [place] [address] Referral ID Status Reason Start Date Expiration Date Visits Re quested Visits Authorized [id number] Closed 07/02/2012 12/29/2012 1 6 Encounter Details Date Type Department Care Team (Late st Contact Info) Description 09/16/2012 5:00 PM CDT Office Visit [facility] - Rheumatology [address] [place] [address] Isidro Heredia MD [address] [facility] [place] [address] Rheumatoid arthritis (HCC) (Primary Dx); Chronic pain [...] since on the Rituxan her feels very complaint investigator the inside, no temp, off and on [...] PO) Take by mouth once daily. ??? Gzcbvmegxll-Pufeygdqw-Zgz C-Mn (GLUCOSAMINE CHONDR 1500 COMPLX PO) Take [...] since on the Rituxan her feels very complaint investigator the inside, no temp, off and on chills, joint soreness including whole spine, not sleeoing well get up 3-4 times a night ??? Fatigue BP 110/84 Pulse 80 Wt 250 lb 6.4 oz (113.581 kg) documented in this encounter Plan of Treatment Upcoming Encounters Date Type Department Care Team (Late st Contact Info) Description 06/03/2024 1:00 PM LOAN REVIEW ANALYST Appointment [facility] - Rheumatology [address] [place] [address] 06/03/2024 2:00 PM LOAN REVIEW ANALYST Office Visit [facility] - Rheumatology [address] [place] [address] Gloria Smith MD [address] [place] [phone] documented as of this encounter Visit Diagnoses Diagnosis Rheumatoid arthritis(714.0) (HCC)- Primary Rheumatoid arthritis Chronic pain syndrome documented in this encounter Care Teams Legislative Advocate Relationship Specialty Start Date End Date Nolberto Nicole MD PCP - General 07/21/08 12/30/13 Isidro Heredia MD Rheumatology 02/09/11 documented as of this encounter
--- OUTSIDE RECORDS SUMMARY | 2024-05-10 18:50 | XMS_ITS | Encounter Summary ---
Author Organization [facility] Address [address] [place] [address] Care Team Providers Care Botany Laboratory Assistant Name Role Phone Nolberto Nicole MD Primary Care Provider Isidro Heredia MD Unavailable Reason for Referral * - Closed Specialty Diagnoses / Procedures Referred By Contac t Referred To Contact Diagnoses Pleurisy Abdominal pain Procedures CT THORAX ABDOMEN PELVIS W CONT Isidro Heredia MD [address] [place] [address] Referral ID Status Reason Start Date Expiration Date Visits Re quested Visits Authorized [id number] Closed 03/25/2013 09/21/2013 1 1 NING ADMINISTRATOR Reason for Visit * Reason Comments Rheumatoid Arthritis Pain Side rt upper side. burni ng sensations. he wants liver checked Rash upper back * Consult, Test & Treat (Routine) - Closed Specialty Diagnoses / Procedures Referred By Contsarahi t Referred To Contact Diagnoses Rheumatoid arthritis(714.0) ([facility]) Procedures [place] OFFICE VISIT DURING HOURS Nolberto Nicole MD [address] [place] [address] Isidro Heredia MD [address] [place] [address] Referral ID Status Reason Start Date Expiration Date Visits Re quested Visits Authorized [id number] Closed 03/14/2013 09/11/2013 1 6 Encounter Details Date Type Department Care Team (Late st Contact Info) Description 03/21/2013 1:00 PM TRAINING ADMINISTRATOR Office Visit [facility] - Rheumatology [address] [place] [phone] Isidro Heredia MD [address] [place] [address] Rheumatoid arthritis (HCC) (Primary Dx); Pleurisy; Abdominal [...] Comments Blood Pressure 136/84 03/21/2013 1:02 PM TRAINING ADMINISTRATOR Pulse 80 03/21/2013 1:02 PM TRAINING ADMINISTRATOR Temperature - - Respiratory Rate - - Oxygen Saturation - - Inhaled Oxygen Concentration - - Weight 114.3 kg (252 lb) 03/21/2013 1:02 PM TRAINING ADMINISTRATOR Height - - Body Mass Index 36.16 01/09/2013 11:48 AM CDT documented in this encounter Progress Notes * Rea Hagan MA - 04/07/2013 12:23 PM CSTQuick Note: Pt informed his lab results on 04/04/13 NING ADMINISTRATOR * Isidro Heredia MD - 03/28/2013 9:55 PM CSTQuick Note: All labs ok Ct chest nl Ct abd Diverticulosis in colon benign Rest of ct neg NING ADMINISTRATOR * Rea Hagan MA - 03/24/2013 9:16 AM CST Resulted the urine test NING ADMINISTRATOR * Isidro Heredia MD - 03/21/2013 1:38 [...] Active Take by mouth once daily. ??? Jnthphmzryy-Bbgsuzisc-Ggc C-Mn (GLUCOSAMINE CHONDR 1500 COMPLX PO) Active [...] Follow up in office in 4 weeks NING ADMINISTRATOR documented in this encounter Plan of Treatment Upcoming Encounters Date Type Department Care Team (Late st Contact Info) Description 06/03/2024 1:00 PM TRAINING ADMINISTRATOR Appointment [facility] - Rheumatology [address] [place] [address] 06/03/2024 2:00 PM TRAINING ADMINISTRATOR Office Visit [facility] - Rheumatology [address] [place] [address] Gloria Smith MD [address] [place] [phone] documented as of this encounter Procedures Procedure Name Priority Date/Time Associated Diagnosis Comments URINALYSIS AUTO - POINT OF CARE Routine 03/24/2013 9:16 AM TRAINING ADMINISTRATOR Rheumatoid Arthritis (Hcc) C-REACTIVE PROTEIN Routine 03/21/2013 2: 22 PM TRAINING ADMINISTRATOR Rheumatoid Arthritis (Hcc) ERYTHROCYTE SEDIMENTATION RATE Routine 03/21/2013 2:22 PM TRAINING ADMINISTRATOR Rheumatoid Arthritis (Hcc) CBC W AUTO DIFFERENTIAL Routine 03/21/2013 2:22 PM TRAINING ADMINISTRATOR Rheumatoid Arthritis (Hcc) COMPREHENSIVE METABOLIC PANEL Routine 03/21/2013 2:22 PM TRAINING ADMINISTRATOR Rheumatoid Arthritis (Hcc) documented in this encounter Results * CT THORAX ABDOMEN PELVIS W CONT (03/25/2013 8:59 AM TRAINING ADMINISTRATOR) Anatomical Region Laterality Modality Chest, Abdomen, Pelvis Computed Tomography 03/25/2013 11:5 3 AM TRAINING ADMINISTRATOR Narrative 03/25/2013 11:57 AM TRAINING ADMINISTRATOR Examination: CT chest with contrast. Indication for [...] CHEST PA AND LATERAL (03/24/2013 6:23 PM TRAINING ADMINISTRATOR) Anatomical Region Laterality Modality Chest Other Narrative 03/24/2013 6:23 PM TRAINING ADMINISTRATOR Isidro Heredia MD ? 03/24/2013 ??6:23 PM CXR: ??NAD Procedure Note Isidro Heredia MD - 03/24/2013 6:22 PM CST CXR: NAD Isidro Heredia MD DIAGNOSTIC IMAGING ORDERABLES * URINALYSIS AUTO - POINT OF CARE (03/24/2013 9:16 AM TRAINING ADMINISTRATOR) Pathologist [facility] Clarity UA POCT Comment:creatine 100 mg/dl Color UA POCT yellow Leukocyte UA negative Negative Nitrite UA POCT negative Negative Urobilinogen UA POCT 0.1 - 1.0 EU/dL Protein UA POCT negative Negative pH UA 6.0 5.0 - 8.0 pH units Blood UA negative Negtive Specific [place] UA POCT 1.015 1.002 - 1.030 Ketone UA negative Negative Bilirubin UA POCT Negative Glucose UA negative Negative Urine specimen (specimen) URINE / Unknown Isidro Heredia MD LAB - POINT OF CARE ORDERABLES * SED RATE WESTERGREN (03/21/2013 2:22 PM TRAINING ADMINISTRATOR) Pathologist [facility] Erythrocyte Sedimentation Rate Westergren 10 0 - 30 mm/hr [facility] ACCOUNT BILL Blood specimen (specimen) BLOOD SPECIMEN / Unknown 03/21/2013 2:22 PM TRAINING ADMINISTRATOR 03/21/2013 4:07 PM TRAINING ADMINISTRATOR Narrative Resulting Agency Comment [facility] [address] ??[facility] [phone] Isidro Heredia MD LAB - HEMATOLOGY OR DERABLES [facility] ACCOUNT BILL * (ABNORMAL) C-REACTIVE PROTEIN (03/21/2013 2:22 PM TRAINING ADMINISTRATOR) C-Reactive Protein 6.7(H) 0.0 - 4.9 mg/L [facility] ACCOUNT BILL Blood specimen (specimen) BLOOD SPECIMEN / Unknown 03/21/2013 2:22 PM TRAINING ADMINISTRATOR 03/21/2013 4:07 PM TRAINING ADMINISTRATOR Narrative Resulting Agency Comment [facility] [address] ??[facility] [phone] Isidro Heredia MD LAB - CHEMISTRY ORD ERABLES [facility] ACCOUNT BILL * (ABNORMAL) COMPREHENSIVE METABOLIC PANEL (03/21/2013 2:22 PM TRAINING ADMINISTRATOR) Glucose 112(H) 65 - 99 mg/dL [facility] [...] BLOOD SPECIMEN / Unknown 03/21/2013 2:22 PM TRAINING ADMINISTRATOR 03/21/2013 4:07 PM TRAINING ADMINISTRATOR Narrative Resulting Agency Comment [facility] [address] ??[facility] [phone] Isidro Heredia MD LAB - CHEMISTRY ORD ERABLES [facility] ACCOUNT BILL * (ABNORMAL) CBC W AUTO DIFFERENTIAL (03/21/2013 2:22 PM TRAINING ADMINISTRATOR) WBC 10.6 3.4 - 10.8 x10E3/uL [facility] [...] BLOOD SPECIMEN / Unknown 03/21/2013 2:22 PM TRAINING ADMINISTRATOR 03/21/2013 4:07 PM TRAINING ADMINISTRATOR Narrative Resulting Agency Comment [facility] [address] ??[facility] [phone] Isidro Heredia MD LAB - HEMATOLOGY OR DERABLES [facility] ACCOUNT BILL documented in this encounter Visit Diagnoses Diagnosis Rheumatoid arthritis(714.0) (HCC)- Primary Rheumatoid arthritis Pleurisy Abdominal pain Pleurisy- Primary Pleurisy Abdominal pain documented in this encounter Care Teams Botany Laboratory Assistant Relationship Specialty Start Date End Date Nolberto Nicole MD PCP - General 07/21/08 12/30/13 Isidro Heredia MD Rheumatology 02/09/11 documented as of this encounter
--- OUTSIDE RECORDS SUMMARY | 2024-05-10 18:50 | XMS_ITS | Encounter Summary ---
Author Organization [facility] Address [address] [place] [address] Care Team Providers Care Ethologist Name Role Phone Nolberto Nicole MD Primary Care Provider [phone] Isidro Heredia MD Unavailable [phone] Reason for Visit * Reason Comments Follow-up RA Pain Hand swollen with pain Pa in Scale: 12/07 Stress lost father Encounter Details Date Type Department Care Team (Late st Contact Info) Description 02/12/2012 5:30 PM CDT Office Visit [facility] Medical [facility] - Rheumatology [address] [place] [address] Isidro Heredia MD [address] [place] [address] Rheumatoid arthritis (HCC) (Primary Dx); Triceps [...] Body Mass Index 35.58 05/15/2011 5:19 PM ONCOLOGY NURSE NAVIGATOR documented in this encounter Progress Notes * [...] PO) Take by mouth once daily. ??? Iustjhaknjo-Xdhtpntps-Mgs C-Mn (GLUCOSAMINE CHONDR 1500 COMPLX PO) Take [...] st Contact Info) Description 06/03/2024 1:00 PM ONCOLOGY NURSE NAVIGATOR Appointment [facility] - Rheumatology [address] [place] [address] 06/03/2024 2:00 PM ONCOLOGY NURSE NAVIGATOR Office Visit [facility] - Rheumatology [address] [place] [address] [phone] Gloria Smith MD [address] [place] [phone] documented as of this encounter Procedures Procedure [...] PM CDT Narrative Resulting Agency Comment [facility] [address] ??[facility] [phone] Isidro Heredia MD LAB - HEMATOLOGY OR DERABLES [facility] ACCOUNT BILL * (ABNORMAL) C-REACTIVE PROTEIN (02/13/2012 8:47 AM CDT) C-Reactive Protein 5.4(H) 0.0 - 4.9 mg/L [facility] ACCOUNT BILL Blood specimen (specimen) BLOOD SPECIMEN / Unknown 02/13/2012 8:47 AM CDT 02/13/2012 6:02 PM CDT Narrative Resulting Agency Comment [facility] [place] [address] [place] [address] ??[facility] [phone] Isidro Heredia MD LAB - CHEMISTRY ORD [...] PM CDT Narrative Resulting Agency Comment [facility] [address] ??[facility] [phone] Isidro Heredia MD LAB - CHEMISTRY ORD [...] PM CDT Narrative Resulting Agency Comment [facility] [address] ??[facility] [phone] Isidro Heredia MD LAB - HEMATOLOGY OR DERABLES [facility] ACCOUNT BILL documented in this encounter Visit Diagnoses Diagnosis Rheumatoid arthritis(714.0) (HCC)- Primary Rheumatoid arthritis Triceps tendonitis Other enthesopathy of elbow region Chronic pain syndrome documented in this encounter Care Teams Ethologist Relationship Specialty Start Date End Date Nolberto Nicole MD PCP - General 07/21/08 12/30/13 Isidro Heredia MD Rheumatology 02/09/11 documented as of this encounter
--- OUTSIDE RECORDS SUMMARY | 2024-05-10 18:50 | XMS_ITS | Encounter Summary ---
Author Organization [facility] Address [address] [facility] [place] [address] Care Team Providers Care Mexican Food Maker Name Role Phone Nolberto Nicole MD [...] Diagnoses Rheumatoid arthritis(714.0) ([facility]) Procedures [place] OFFICE VISIT DURING HOURS Nolberto Nicole MD [address] [place] [address] Isidro Heredia MD [address] [place] [address] Referral ID Status Reason Start Date Expiration Date Visits Re quested Visits Authorized [id number] Closed 02/20/2012 08/18/2012 1 5 Encounter Details Date Type Department Care Team (Late st Contact Info) Description 04/08/2012 5:00 PM MACHINE BINDING FOLDER Office Visit [facility] - Rheumatology [address] [place] [address] Isidro Heredia MD [address] [place] [address] Rheumatoid arthritis (HCC) (Primary Dx); Chronic pain [...] Comments Blood Pressure 110/80 04/08/2012 5:48 PM MACHINE BINDING FOLDER Pulse 104 04/08/2012 5:48 PM MACHINE BINDING FOLDER Temperature - - Respiratory Rate - - Oxygen Saturation - - Inhaled Oxygen Concentration - - Weight 114.5 kg (252 lb 6.4 oz) 04/08/2012 5:48 PM MACHINE BINDING FOLDER Height - - Body Mass Index 36.22 05/15/2011 5:19 PM MACHINE BINDING FOLDER documented in this encounter Progress Notes * Rea Hagan MA - 04/17/2012 2:11 PM CSTQuick Note: Sent lab letter to pt INE BINDING FOLDER * Isidro Heredia MD - 04/14/2012 8:28 PM CSTQuick Note: mtx ok INE BINDING FOLDER * Isidro Heredia MD - 04/08/2012 6:04 [...] PO) Take by mouth once daily. ??? Yzlfgrnwwtb-Rckfdibrx-Vwk C-Mn (GLUCOSAMINE CHONDR 1500 COMPLX PO) Take [...] up in office in 4 weeks INE BINDING FOLDER * Rea Hagan MA - 04/08/2012 5:50 PM CST Chief Complaint Patient presents with ??? Rheumatoid Arthritis new sx: racey heart, sob few times since the last visit. last episode on 03/31/12 ??? Upper Extremity Problem hands,shoulder ??? Lower Extremity Problem ankles, knees, hips ??? Swelling Hand obdulia BP 110/80 Pulse 104 Wt 252 lb 6.4 oz (114.488 kg) INE BINDING FOLDER documented in this encounter Plan of Treatment Upcoming Encounters Date Type Department Care Team (Late st Contact Info) Description 06/03/2024 1:00 PM MACHINE BINDING FOLDER Appointment [facility] - Rheumatology [address] [place] [address] 06/03/2024 2:00 PM MACHINE BINDING FOLDER Office Visit [facility] - Rheumatology [address] [place] [address] [phone] Gloria Smith MD [address] [place] [phone] documented as of this encounter Procedures Procedure Name Priority Date/Time Associated Diagnosis Comments C-REACTIVE PROTEIN Routine 04/08/2012 6: 32 PM MACHINE BINDING FOLDER Rheumatoid arthritis (HCC) ERYTHROCYTE SEDIMENTATION RATE Routine 04/08/2012 6:32 PM MACHINE BINDING FOLDER Rheumatoid arthritis (HCC) CBC W AUTO DIFFERENTIAL Routine 04/08/2012 6:32 PM MACHINE BINDING FOLDER Rheumatoid arthritis (HCC) COMPREHENSIVE METABOLIC PANEL Routine 04/08/2012 6:32 PM MACHINE BINDING FOLDER Rheumatoid arthritis (HCC) documented in this encounter Results * SED RATE WESTERGREN (04/08/2012 6:32 PM MACHINE BINDING FOLDER) Erythrocyte Sedimentation Rate Westergren 12 0 - 15 mm/hr [facility] ACCOUNT BILL Blood specimen (specimen) BLOOD SPECIMEN / Unknown 04/08/2012 6:32 PM MACHINE BINDING FOLDER 04/08/2012 9:50 PM MACHINE BINDING FOLDER Narrative Resulting Agency Comment [facility] ??[facility] [phone] Isidro Heredia MD LAB - HEMATOLOGY OR DERABLES Performing Organization Address City/[facility] Co de Phone Number [facility] ACCOUNT BILL * (ABNORMAL) C-REACTIVE PROTEIN (04/08/2012 6:32 PM MACHINE BINDING FOLDER) C-Reactive Protein 8.6(H) 0.0 - 4.9 mg/L [facility] ACCOUNT BILL Blood specimen (specimen) BLOOD SPECIMEN / Unknown 04/08/2012 6:32 PM MACHINE BINDING FOLDER 04/08/2012 9:50 PM MACHINE BINDING FOLDER Narrative Resulting Agency Comment [facility] ??[facility] [id number] Isidro Heredia MD LAB - CHEMISTRY ORD ERABLES Performing Organization Address [facility] Co de Phone Number [facility] ACCOUNT BILL * (ABNORMAL) COMPREHENSIVE METABOLIC PANEL (04/08/2012 6:32 PM MACHINE BINDING FOLDER) Glucose 106(H) 65 - 99 mg/dL [facility] [...] BLOOD SPECIMEN / Unknown 04/08/2012 6:32 PM MACHINE BINDING FOLDER 04/08/2012 9:50 PM MACHINE BINDING FOLDER Narrative Resulting Agency Comment [facility] [address] ??[facility] [id number] Isidro Heredia MD LAB - CHEMISTRY ORD ERABLES [facility] ACCOUNT BILL * CBC W AUTO DIFFERENTIAL (04/08/2012 6:32 PM MACHINE BINDING FOLDER) WBC 8.1 4.0 - 10.5 x10E3/uL [facility] [...] BLOOD SPECIMEN / Unknown 04/08/2012 6:32 PM MACHINE BINDING FOLDER 04/08/2012 9:50 PM MACHINE BINDING FOLDER Narrative Resulting Agency Comment [facility] [address] ??[facility] [phone] Isidro Heredia MD LAB - HEMATOLOGY OR DERABLES [facility] ACCOUNT BILL documented in this encounter Visit Diagnoses Diagnosis Rheumatoid arthritis(714.0) (HCC)- Primary Rheumatoid arthritis Chronic pain syndrome Palpitations documented in this encounter Care Teams Mexican Food Maker Relationship Specialty Start Date End Date Nolberto Nicole MD PCP - General 07/21/08 12/30/13 Isidro Heredia MD Rheumatology 02/09/11 documented as of this encounter
--- OUTSIDE RECORDS SUMMARY | 2024-05-10 18:50 | XMS_ITS | Encounter Summary ---
Author Organization [facility] Address [address] [facility] [place] [address] Care Team Providers Care Career Developer Name Role Phone Nolberto Nicole MD Primary Care Provider Isidro Hreedia MD Unavailable Reason for Visit * Reason [...] Diagnoses Rheumatoid arthritis(714.0) ([facility]) Procedures [place] OFFICE VISIT DURING HOURS Nolberto Nicole MD [address] [place] [address] Isidro Heredia MD [address] [place] [address] Referral ID Status Reason Start Date Expiration Date Visits Re quested Visits Authorized [id number] Closed 02/20/2012 08/18/2012 1 5 Encounter Details Date Type Department Care Team (Late st Contact Info) Description 06/24/2012 5:00 PM MANUFACTURING PROCESS ENGINEER Office Visit [facility] - Rheumatology [address] [place] [address] Isidro Heredia MD [address] [place] [address] [place] [address] Rheumatoid arthritis (HCC) (Primary Dx); Headache Social [...] Comments Blood Pressure 110/86 06/24/2012 5:31 PM MANUFACTURING PROCESS ENGINEER Pulse 80 06/24/2012 5:31 PM MANUFACTURING PROCESS ENGINEER Temperature 36.8 ??C (98.2 ??F) 06/24/2012 5:31 PM CS T Respiratory Rate - - Oxygen Saturation - - Inhaled Oxygen Concentration - - Weight 111.6 kg (246 lb) 06/24/2012 5:31 PM MANUFACTURING PROCESS ENGINEER Height - - Body Mass Index 35.3 05/15/2011 5:19 PM MANUFACTURING PROCESS ENGINEER documented in this encounter Progress Notes * Yamileth Rodríguez MA - 07/01/2012 11:45 AM CSTQuick Note: Letter mailed to patient regarding alb results. FACTURING PROCESS ENGINEER * Isidro Heredia MD - 06/30/2012 5:16 PM CSTQuick Note: mtx ok FACTURING PROCESS ENGINEER * Isidro Heredia MD - 06/30/2012 5:15 PM CSTQuick Note: mtx ok FACTURING PROCESS ENGINEER * Isidro Heredia MD - 06/24/2012 5:55 [...] PO) Take by mouth once daily. ??? Ugtzqlhhwvz-Mrvybnsls-Odr C-Mn (GLUCOSAMINE CHONDR 1500 COMPLX PO) Take [...] Follow up in office in 4 weeks FACTURING PROCESS ENGINEER * Rea Hagan MA - 06/24/2012 5:33 [...] 98.2 ??F Wt 246 lb (111.585 kg) FACTURING PROCESS ENGINEER documented in this encounter Plan of Treatment Upcoming Encounters Date Type Department Care Team (Late st Contact Info) Description 06/03/2024 1:00 PM MANUFACTURING PROCESS ENGINEER Appointment [facility] - Rheumatology [address] [place] [address] 06/03/2024 2:00 PM MANUFACTURING PROCESS ENGINEER Office Visit [facility] - Rheumatology [address] [place] [address] Gloria Smith MD [address] [place] [phone] documented as of this encounter Procedures Procedure Name Priority Date/Time Associated Diagnosis Comments C-REACTIVE PROTEIN Routine 06/24/2012 6: 12 PM MANUFACTURING PROCESS ENGINEER Rheumatoid arthritis (HCC) ERYTHROCYTE SEDIMENTATION RATE Routine 06/24/2012 6:12 PM MANUFACTURING PROCESS ENGINEER Rheumatoid arthritis (HCC) CBC W AUTO DIFFERENTIAL Routine 06/24/2012 6:12 PM MANUFACTURING PROCESS ENGINEER Rheumatoid arthritis (HCC) COMPREHENSIVE METABOLIC PANEL Routine 06/24/2012 6:12 PM MANUFACTURING PROCESS ENGINEER Rheumatoid arthritis (HCC) documented in this encounter Results * (ABNORMAL) SED RATE WESTERGREN (06/24/2012 6:12 PM MANUFACTURING PROCESS ENGINEER) Erythrocyte Sedimentation Rate Westergren 37(H) 0 - 15 mm/hr [facility] ACCOUNT BILL Blood specimen (specimen) BLOOD SPECIMEN / Unknown 06/24/2012 6:12 PM MANUFACTURING PROCESS ENGINEER 06/24/2012 7:33 PM MANUFACTURING PROCESS ENGINEER Narrative Resulting Agency [facility] [employer] ??[facility] [phone] Isidro Heredia MD LAB - HEMATOLOGY OR DERABLES [facility] ACCOUNT BILL * C-REACTIVE PROTEIN (06/24/2012 6:12 PM MANUFACTURING PROCESS ENGINEER) C-Reactive Protein 4.2 0.0 - 4.9 mg/L [facility] ACCOUNT BILL Blood specimen (specimen) BLOOD SPECIMEN / Unknown 06/24/2012 6:12 PM MANUFACTURING PROCESS ENGINEER 06/24/2012 7:33 PM MANUFACTURING PROCESS ENGINEER Narrative Resulting Agency Comment [facility] [address] [facility] ??[facility] [phone] Isidro Heredia MD LAB - CHEMISTRY ORD ERABLES [facility] ACCOUNT BILL * (ABNORMAL) COMPREHENSIVE METABOLIC PANEL (06/24/2012 6:12 PM MANUFACTURING PROCESS ENGINEER) Glucose 101(H) 65 - 99 mg/dL [...] BLOOD SPECIMEN / Unknown 06/24/2012 6:12 PM MANUFACTURING PROCESS ENGINEER 06/24/2012 7:33 PM MANUFACTURING PROCESS ENGINEER Narrative Resulting Agency Comment [facility] [address] ??[facility] [phone] Isidro Heredia MD LAB - CHEMISTRY ORD ERABLES [facility] ACCOUNT BILL * (ABNORMAL) CBC W AUTO DIFFERENTIAL (06/24/2012 6:12 PM MANUFACTURING PROCESS ENGINEER) WBC 10.9(H) 4.0 - 10.5 x10E3/uL [facility] [...] BLOOD SPECIMEN / Unknown 06/24/2012 6:12 PM MANUFACTURING PROCESS ENGINEER 06/24/2012 7:33 PM MANUFACTURING PROCESS ENGINEER Narrative Resulting Agency Comment [facility] [address] ??[facility] [phone] Isidro Heredia MD LAB - HEMATOLOGY OR DERABLES [facility] ACCOUNT BILL documented in this encounter Visit Diagnoses Diagnosis Rheumatoid arthritis(714.0) (HCC)- Primary Rheumatoid arthritis Headache(784.0) Headache documented in this encounter Care Teams Career Developer Relationship Specialty Start Date End Date Nolberto Nicole MD PCP - General 3/24/09 9/2/14 Isidro Heredia MD Rheumatology 02/09/11 documented as of this encounter
--- OUTSIDE RECORDS SUMMARY | 2024-05-10 18:50 | XMS_ITS | Encounter Summary ---
Author Organization [facility] Address [address] [facility] [place] [address] Care Team Providers Care Looping Inspector Name Role Phone Nolberto Nicole MD Primary Care Provider [phone] Isidro Heredia MD Unavailable Reason for Visit [...] Contact Diagnoses Rheumatoid arthritis(714.0) ([facility]) Procedures [place] OFFICE VISIT DURING HOURS Nolberto Nicole MD [address] [place] [address] Isidro Heredia MD [address] [place] [address] Referral ID Status Reason Start Date Expiration Date Visits Re quested Visits Authorized [id number] Closed 02/20/2012 08/18/2012 1 5 Encounter Details Date Type Department Care Team (Late st Contact Info) Description 07/22/2012 3:30 PM CDT Office Visit [facility] - Rheumatology [address] [place] [address] Isidro Heredia MD [address] [facility] [place] [address] Rheumatoid arthritis (HCC) (Primary Dx); Screening examination [...] Body Mass Index 35.7 05/15/2011 5:19 PM CLINICAL SUPPORT SPECIALIST documented in this encounter Progress Notes [...] PO) Take by mouth once daily. ??? Ymutvffxwry-Hlmmrcsto-Sgb C-Mn (GLUCOSAMINE CHONDR 1500 COMPLX PO) Take [...] Contact Info) Description 06/03/2024 1:00 PM CLINICAL SUPPORT SPECIALIST Appointment [facility] - Rheumatology [address] [place] [address] 06/03/2024 2:00 PM CLINICAL SUPPORT SPECIALIST Office Visit [facility] - Rheumatology [address] [place] [address] Gloria Smith MD [address] [place] [phone] documented as of this encounter Procedures Procedure [...] 6:18 PM CDT Narrative Resulting Agency Comment [facility] ??[facility] [phone] Isidro Heredia MD LAB - CHEMISTRY ORD Harlyn MedicalBLES [facility] ACCOUNT BILL * QUANTIFERON TB-GOLD (07/22/2012 4:43 PM CDT) Pathologist [facility] QuantiFERON Incubation [facility] ACCOUNT BILL Comment: Incubated, specimen forwarded to [facility], [place], [place] for completion of the assay. This specimen has been tested 3 times with 2 out of 3 values positive. ??A repeat specimen performed in 2-3 weeks time may give a consistent negative result. Blood specimen (specimen) BLOOD SPECIMEN / Unknown 07/22/2012 4:43 PM CDT 07/22/2012 6:18 PM CDT Narrative Resulting Agency Comment [facility] [address] [place] [address] ??[facility] [phone] Isidro Heredia MD LAB - CHEMISTRY ORD [employer]BL[employer] [facility] ACCOUNT BILL * (ABNORMAL) SED RATE WESTERGREN (07/22/2012 4:42 PM CDT) Erythrocyte Sedimentation Rate Westergren 39(H) 0 - 15 mm/hr [facility] ACCOUNT BILL Blood specimen (specimen) BLOOD SPECIMEN / Unknown 07/22/2012 4:42 PM CDT 07/22/2012 6:18 PM CDT Narrative Resulting Agency Comment [facility] [address] ??[facility] [phone] Isidro Heredia MD LAB - HEMATOLOGY OR DERABLES Performing Organization Address City/[facility]/ZIP Co de Phone Number [facility] ACCOUNT BILL * (ABNORMAL) C-REACTIVE PROTEIN (07/22/2012 4:42 PM CDT) C-Reactive Protein 5.7(H) 0.0 - 4.9 mg/L [facility] ACCOUNT BILL Blood specimen (specimen) BLOOD SPECIMEN / Unknown 07/22/2012 4:42 PM CDT 07/22/2012 6:18 PM CDT Narrative Resulting Agency Comment [facility] ??[facility] [phone] Isidro Heredia MD LAB - CHEMISTRY ORD [...] CDT Narrative Resulting Agency Comment [facility] [address] ??[facility] [phone] Isidro Heredia MD LAB - CHEMISTRY ORD [...] CDT Narrative Resulting Agency Comment [facility] [address] ??[facility] [phone] Isidro Heredia MD LAB - HEMATOLOGY OR DERABLES [facility] ACCOUNT BILL documented in this encounter Visit Diagnoses Diagnosis Rheumatoid arthritis(714.0) (HCC)- Primary Rheumatoid arthritis Screening examination for pulmonary tuberculosis Sinusitis chronic, ethmoidal Chronic ethmoidal sinusitis Rheumatoid arthritis(714.0) (HCC) Rheumatoid arthritis documented in this encounter Care Teams Looping Inspector Relationship Specialty Start Date End Date Nolberto Nicole MD PCP - General 07/21/08 12/30/13 Isidro Heredia MD Rheumatology 02/09/11 documented as of this encounter
--- OUTSIDE RECORDS SUMMARY | 2024-05-10 18:50 | XMS_ITS | Encounter Summary ---
Author Organization [facility] Address [address] [place] [address] Care Team Providers Care Rn Bariatric Name Role Phone Nolberto Nicole MD Primary Care Provider [phone] Isidro Heredia MD Unavailable Reason for Visit * Treatment (Routine) - Closed Specialty Diagnoses / Procedures Referred By Lawrence shah Referred To Contact Infusion Therapy Nurse Diagnoses Rheumatoid arthritis(714.0) ([facility]) Procedures [place] INJECTION TOCILIZUMAB 1 MG Isidro Heredia MD [address] [place] [address] Referral ID Status Reason Start Date Expiration Date Visits Re quested Visits Authorized [id number] Closed 03/07/2013 06/05/2013 1 5 Encounter Details Date Type Department Care Team (Late st Contact Info) Description 03/21/2013 12:50 PM MATERIAL DISPATCHER - 03/21/2013 11:59 PM MATERIAL DISPATCHER Hospital Encounter [facility] - Rheumatology [address] [place] [address] Isidro Heredia MD [address] [place] [address] Discharge Disposition: Home or Self [...] Sig Dispensed Refills Start Date End Date Soegchzdkpx-Ovtiucboy-O it C-Mn (GLUCOSAMINE CHONDR 1500 COMPLX PO) [...] Document, Scanned - 04/01/2013 10:03 PM CST RIAL DISPATCHER documented in this encounter Plan of Treatment Upcoming Encounters Date Type Department Care Team (Late st Contact Info) Description 06/03/2024 1:00 PM MATERIAL DISPATCHER Appointment [facility] - Rheumatology [address] [place] [address] 06/03/2024 2:00 PM MATERIAL DISPATCHER Office Visit [facility] - Rheumatology [address] [place] [address] Gloria Smith MD [address] [place] [phone] documented as of this encounter Visit Diagnoses Not on filedocumented in this encounter Care Teams Rn Bariatric Relationship Specialty Start Date End Date Nolberto Nicole MD PCP - General 07/21/08 12/30/13 Isidro Heredia MD Rheumatology 02/09/11 documented as of this encounter
--- OUTSIDE RECORDS SUMMARY | 2024-05-10 18:50 | XMS_ITS | Encounter Summary ---
Author Organization [facility] Address [address] [place] [address] Care Team Providers Care Cooler Man Name Role Phone Nolberto Nicole MD Primary Care Provider [phone] Isidro Heredia MD Unavailable [phone] Reason for Visit * Reason Comments Follow-up RA Upper Extremity Problem rt shoulder and hands especially when he wakes up in the am. swelling in obdulia hands Medication Request wants to discuss dec rease in Prednisone * Evaluate & Treat (Routine) - Closed Specialty Diagnoses / Procedures Referred By Lawrence shah Referred To Contact Diagnoses Rheumatoid arthritis(714.0) ([facility]) Procedures [place] OFFICE VISIT DURING HOURS Nolberto Nicole MD 0 [place] [address] Isidro Heredia MD [address] [place] [address] Referral ID Status Reason Start Date Expiration Date Visits Re quested Visits Authorized [id number] Closed 02/20/2012 08/18/2012 1 5 Encounter Details Date Type Department Care Team (Late st Contact Info) Description 03/11/2012 5:00 PM NURSE CLINICAL Office Visit [facility] Time Warden Medical [facility] - Rheumatology [address] [place] [address] Isidro Heredia MD [address] [place] [address] Rheumatoid arthritis (HCC) (Primary Dx); [...] Comments Blood Pressure 130/68 03/11/2012 5:02 PM NURSE CLINICAL Pulse 88 03/11/2012 5:02 PM NURSE CLINICAL Temperature - - Respiratory Rate - - Oxygen Saturation - - Inhaled Oxygen Concentration - - Weight 114.2 kg (251 lb 12.8 oz) 03/11/2012 5:02 PM NURSE CLINICAL Height - - Body Mass Index 36.13 05/15/2011 5:19 PM NURSE CLINICAL documented in this encounter Progress Notes * Rea Hagan MA - 03/15/2012 2:29 PM CSTQuick Note: Sent lab letter to pt E CLINICAL * Isidro Heredia MD - 03/15/2012 5:43 AM CSTQuick Note: mtx ok E CLINICAL * Isidro Heredia MD - 03/11/2012 5:23 [...] PO) Take by mouth once daily. ??? Gvkdovnciwp-Lbftcjemn-Foa C-Mn (GLUCOSAMINE CHONDR 1500 COMPLX PO) Take [...] up in office in 4 weeks E CLINICAL * Rea Hagan MA - 03/11/2012 5:03 PM CST Chief Complaint Patient presents with ??? Follow-up RA ??? Upper Extremity Problem rt shoulder and hands especially when he wakes up in the am. swelling in obdulia hands ??? Medication Request wants to discuss decrease in Prednisone BP 130/68 Pulse 88 Wt 251 lb 12.8 oz (114.216 kg) E CLINICAL documented in this encounter Plan of Treatment Upcoming Encounters Date Type Department Care Team (Late st Contact Info) Description 06/03/2024 1:00 PM NURSE CLINICAL Appointment [facility] - Rheumatology [address] [place] [address] 06/03/2024 2:00 PM NURSE CLINICAL Office Visit [facility] - Rheumatology [address] [place] [address] Gloria Smith MD [address] [place] [phone] documented as of this encounter Procedures Procedure Name Priority Date/Time Associated Diagnosis Comments C-REACTIVE PROTEIN Routine 03/11/2012 5: 38 PM NURSE CLINICAL Rheumatoid arthritis (HCC) ERYTHROCYTE SEDIMENTATION RATE Routine 03/11/2012 5:38 PM NURSE CLINICAL Rheumatoid arthritis (HCC) CBC W AUTO DIFFERENTIAL Routine 03/11/2012 5:38 PM NURSE CLINICAL Rheumatoid arthritis (HCC) COMPREHENSIVE METABOLIC PANEL Routine 03/11/2012 5:38 PM NURSE CLINICAL Rheumatoid arthritis (HCC) documented in this encounter Results * (ABNORMAL) SED RATE WESTERGREN (03/11/2012 5:38 PM NURSE CLINICAL) Erythrocyte Sedimentation Rate Westergren 26(H) 0 - 15 mm/hr [facility] ACCOUNT BILL Blood specimen (specimen) BLOOD SPECIMEN / Unknown 03/11/2012 5:38 PM NURSE CLINICAL 03/11/2012 10:04 PM NURSE CLINICAL Narrative Resulting Agency Comment [facility] [address] ??[facility] [id number] Isidro Heredia MD LAB - HEMATOLOGY OR DERABLES [facility] ACCOUNT BILL * C-REACTIVE PROTEIN (03/11/2012 5:38 PM NURSE CLINICAL) C-Reactive Protein 3.6 0.0 - 4.9 mg/L [facility] ACCOUNT BILL Blood specimen (specimen) BLOOD SPECIMEN / Unknown 03/11/2012 5:38 PM NURSE CLINICAL 03/11/2012 10:04 PM NURSE CLINICAL Narrative Resulting Agency Comment [facility] [id number] ??[facility] [id number] Isidro Heredia MD LAB - CHEMISTRY ORD ERABLES Performing Organization Address City/[facility]/ZIP Co de Phone Number [facility] ACCOUNT BILL * (ABNORMAL) COMPREHENSIVE METABOLIC PANEL (03/11/2012 5:38 PM NURSE CLINICAL) Glucose 113(H) 65 - 99 mg/dL [facility] [...] BLOOD SPECIMEN / Unknown 03/11/2012 5:38 PM NURSE CLINICAL 03/11/2012 10:04 PM NURSE CLINICAL Narrative Resulting Agency Comment [facility] [address] ??[facility] [phone] Isidro Heredia MD LAB - CHEMISTRY ORD ERABLES [facility] ACCOUNT BILL * (ABNORMAL) CBC W AUTO DIFFERENTIAL (03/11/2012 5:38 PM NURSE CLINICAL) WBC 9.8 4.0 - 10.5 x10E3/uL [facility] [...] BLOOD SPECIMEN / Unknown 03/11/2012 5:38 PM NURSE CLINICAL 03/11/2012 10:04 PM NURSE CLINICAL Narrative Resulting Agency Comment [facility] [address] ??[facility] [id number] Isidro Heredia MD LAB - HEMATOLOGY OR DERABLES [facility] ACCOUNT BILL documented in this encounter Visit Diagnoses Diagnosis Rheumatoid arthritis(714.0) (HCC)- Primary Rheumatoid arthritis Triceps tendonitis Other enthesopathy of elbow region documented in this encounter Care Teams Cooler Man Relationship Specialty Start Date End Date Nolberto Nicole MD PCP - General 07/21/08 12/30/13 Isidro Heredia MD Rheumatology 02/09/11 documented as of this encounter
--- OUTSIDE RECORDS SUMMARY | 2024-05-10 18:50 | XMS_ITS | Encounter Summary ---
Author Organization [facility] Address [address] [facility] [place] [address] Care Team Providers Care Wet Trimmer Name Role Phone Nolberto Nicole MD Primary Care Provider [phone] Isidro Heredia MD Unavailable [phone] Reason for Visit * Reason Comments Rheumatoid Arthritis pain scale: [address] iffness: Chest Pain left side. sob whem doing yard work Hospital Follow-up [facility] ([facility]) october 25 2012 regarding bladder infection. taking Cipro and Flomax * Evaluate & Treat (Routine) - Closed Specialty Diagnoses / Procedures Referred By Lawrence shah Referred To Contact Diagnoses Rheumatoid arthritis(714.0) ([facility]) Procedures [place] OFFICE VISIT DURING HOURS Nolberto Nicole MD [address] [place] [address] Isidro Heredia MD [address] [place] [address] Referral ID Status Reason Start Date Expiration Date Visits Re quested Visits Authorized [id number] Closed 08/15/2012 02/11/2013 1 5 Encounter Details Date Type Department Care Team (Late st Contact Info) Description 11/11/2012 5:15 PM CDT Office Visit [facility] - Rheumatology [address] [place] [address] Isidro Heredia MD [address] [place] [address] Rheumatoid arthritis (HCC) (Primary Dx); Chronic pain [...] whem doing yard work ??? Hospital Follow-up [facility] (ER) october 25 2012 regarding bladder [...] PO) Take by mouth once daily. ??? Gpseoonutzq-Ucuijliyp-Vrj C-Mn (GLUCOSAMINE CHONDR 1500 COMPLX PO) Take [...] whem doing yard work ??? Hospital Follow-up [facility] (ER) october 25 2012 regarding bladder infection. taking Cipro and Flomax BP 124/90 Pulse 84 Wt 111.041 kg (244 lb 12.8 oz) documented in this encounter Plan of Treatment Upcoming Encounters Date Type Department Care Team (Late st Contact Info) Description 06/03/2024 1:00 PM UTILITY BILL COMPLAINTS INVESTIGATOR Appointment [facility] - Rheumatology [address] [place] [address] [phone] 06/03/2024 2:00 PM UTILITY BILL COMPLAINTS INVESTIGATOR Office Visit [facility] - Rheumatology [address] [place] [address] [phone] Gloria Smith MD [address] [place] [phone] documented as of this encounter Visit Diagnoses Diagnosis Rheumatoid arthritis(714.0) ([facility])- Primary Rheumatoid arthritis Chronic pain syndrome Acute UTI Urinary tract infection, site not specified documented in this encounter Care Teams Wet Trimmer Relationship Specialty Start Date End Date Nolberto Nicole MD PCP - General 07/21/08 12/30/13 Isidro Heredia MD Rheumatology 02/09/11 documented as of this encounter
--- OUTSIDE RECORDS SUMMARY | 2024-05-10 18:50 | XMS_ITS | Encounter Summary ---
Author Organization [facility] Address [address] [facility] [place] [address] Care Team Providers Care Systems Management Consultant Name Role Phone Nolberto Nicole MD Primary Care Provider Isidro Heredia MD Unavailable [phone] Reason for Visit * Reason Comments Rheumatoid Arthritis pain scle:8/10 am s tiffness: no tolerating meds well no fever/chill Shoulder Pain pain scle:9/10 Swelling Hand with shooting pain Pain Knee obdulia with shooting pa in * Evaluate & Treat (Routine) - Closed Specialty Diagnoses / Procedures Referred By Lawrence shah Referred To Contact Diagnoses Rheumatoid arthritis(714.0) ([facility]) Procedures [place] OFFICE VISIT DURING HOURS Nolberto Nicole MD [address] [place] [address] Isidro Heredia MD [address] [place] [address] Referral ID Status Reason Start Date Expiration Date Visits Re quested Visits Authorized [id number] Closed 08/15/2012 02/11/2013 1 5 Encounter Details Date Type Department Care Team (Late st Contact Info) Description 12/09/2012 5:00 PM CDT Office Visit [facility] - Rheumatology [address] [place] [address] Isidro Heredia MD [facility] [place] [address] Rheumatoid arthritis (HCC) (Primary Dx); Chronic pain [...] PO) Take by mouth once daily. ??? Rnzhqmyoapy-Ikaystoji-Ujp C-Mn (GLUCOSAMINE CHONDR 1500 COMPLX PO) Take [...] st Contact Info) Description 06/03/2024 1:00 PM PLYWOOD SCARFER TENDER Appointment [facility] - Rheumatology [address] [place] [address] [phone] 06/03/2024 2:00 PM PLYWOOD SCARFER TENDER Office Visit [facility] - Rheumatology [address] [place] [address] [phone] Gloria Smith MD [address] [place] [phone] documented as of this encounter Procedures Procedure [...] PM CDT Narrative Resulting Agency Comment [facility] [place] [address] [facility] [id number] Isidro Heredia MD LAB - HEMATOLOGY OR DERABLES [facility] ACCOUNT BILL * C-REACTIVE PROTEIN (12/09/2012 5:49 PM CDT) C-Reactive Protein 2.9 0.0 - 4.9 mg/L [facility] ACCOUNT BILL Blood specimen (specimen) BLOOD SPECIMEN / Unknown 12/09/2012 5:49 PM CDT 12/09/2012 7:39 PM CDT Narrative Resulting Agency Comment [facility] [place] [address] [facility] [id number] Isidro Heredia MD LAB - CHEMISTRY ORD [...] PM CDT Narrative Resulting Agency Comment [facility] [place] [id number] [facility] ??[facility] [phone] Isidro Heredia MD LAB - CHEMISTRY ORD [...] CDT Narrative Resulting Agency Comment [facility] [address] ??[facility] [phone] Isidro Heredia MD LAB - HEMATOLOGY OR DERABLES [facility] ACCOUNT BILL documented in this encounter Visit Diagnoses Diagnosis Rheumatoid arthritis(714.0) (HCC)- Primary Rheumatoid arthritis Chronic pain syndrome documented in this encounter Care Teams Systems Management Consultant Relationship Specialty Start Date End Date Nolberto Nicole MD PCP - General 07/21/08 12/30/13 Isidro Heredia MD Rheumatology 02/09/11 documented as of this encounter
--- OUTSIDE RECORDS SUMMARY | 2024-05-10 18:50 | XMS_ITS | Encounter Summary ---
Author Organization [facility] Address [address] [place] [address] Care Team Providers Care Tray Delivery Aide Name Role Phone Nolberto Nicole MD Primary Care Provider Isidro Heredia MD Unavailable Reason for Visit * Reason Comments Rheumatoid Arthritis Pain Knee left Pain Hand rt with some swellin g * Evaluate & Treat (Routine) - Closed Specialty Diagnoses / Procedures Referred By Lawrence shah Referred To Contact Diagnoses Rheumatoid arthritis(714.0) (HCC) Procedures [place] OFFICE VISIT DURING HOURS Nolberto Nicole MD [address] [place] [address] Isidro Heredia MD [address] [place] [address] Referral ID Status Reason Start Date Expiration Date Visits Re quested Visits Authorized [id number] Closed 08/15/2012 02/11/2013 1 5 Encounter Details Date Type Department Care Team (Late st Contact Info) Description 01/09/2013 3:00 PM CDT Office Visit [facility] - Rheumatology [address] [place] [address] Isidro Heredia MD [address] [place] [address] Rheumatoid arthritis (HCC) (Primary Dx); [...] Active Take by mouth once daily. ??? Ctcgflbudrp-Lcqndichw-Qdl C-Mn (GLUCOSAMINE CHONDR 1500 COMPLX PO) Active [...] Info) Description 06/03/2024 1:00 PM PHYSICAL THERAPY NURSE Appointment [facility] - Rheumatology [address] [place] [address] 06/03/2024 2:00 PM PHYSICAL THERAPY NURSE Office Visit [facility] - Rheumatology [address] [place] [address] Gloria Smith MD [address] [place] [phone] documented as of this encounter Visit Diagnoses Diagnosis Rheumatoid arthritis(714.0) (HCC)- Primary Rheumatoid arthritis Chronic pain syndrome documented in this encounter Care Teams Tray Delivery Aide Relationship Specialty Start Date End Date Nolberto Nicole MD PCP - General 07/21/08 12/30/13 Isidro Heredia MD Rheumatology 02/09/11 documented as of this encounter
--- OUTSIDE RECORDS SUMMARY | 2024-05-10 18:50 | XMS_ITS | Encounter Summary ---
Author Organization [facility] Address [address] [facility] [place] [address] Care Team Providers Care Advertising Sales Associate Name Role Phone Nolberto Nicole MD Primary Care Provider [phone] Isidro Heredia MD Unavailable [phone] Reason for Visit * Reason Comments Rheumatoid Arthritis * Consult, Test & Treat (Routine) - Closed Specialty Diagnoses / Procedures Referred By Contsarahi t Referred To Contact Diagnoses Rheumatoid arthritis(714.0) (HCC) Procedures [place] OFFICE VISIT DURING HOURS Nolberto Nicole MD [address] [place] [address] Isidro Heredia MD [address] [place] [address] Referral ID Status Reason Start Date Expiration Date Visits Re quested Visits Authorized [id number] Closed 03/14/2013 09/11/2013 1 6 Encounter Details Date Type Department Care Team (Late st Contact Info) Description 05/12/2013 1:00 PM ANESTHESIA DIRECTOR Office Visit [facility] Medical [facility] - Rheumatology [address] [place] [address] Isidro Heredia MD [address] [place] [address] Rheumatoid arthritis (HCC) (Primary Dx); Chronic [...] Comments Blood Pressure 138/89 05/12/2013 12:57 PM ANESTHESIA DIRECTOR Pulse 81 05/12/2013 12:57 PM ANESTHESIA DIRECTOR Temperature - - Respiratory Rate - - Oxygen Saturation - - Inhaled Oxygen Concentration - - Weight 113.4 kg (250 lb) 05/12/2013 12:57 PM ANESTHESIA DIRECTOR Height - - Body Mass Index 35.87 05/12/2013 12:03 PM ANESTHESIA DIRECTOR documented in this encounter Progress Notes [...] Active Take by mouth once daily. ??? Opezrhprxjp-Tyjtuppeq-Tya C-Mn (GLUCOSAMINE CHONDR 1500 COMPLX PO) Active [...] bursa.. Patient tolerated procedure well without complications. THESIA DIRECTOR documented in this encounter Plan of Treatment Upcoming Encounters Date Type Department Care Team (Late st Contact Info) Description 06/03/2024 1:00 PM ANESTHESIA DIRECTOR Appointment [facility] - Rheumatology [address] [place] [address] [phone] 06/03/2024 2:00 PM ANESTHESIA DIRECTOR Office Visit [facility] - Rheumatology [address] [place] [address] [phone] Gloira Smith MD [address] [place] [phone] documented as of this encounter Visit Diagnoses Diagnosis Rheumatoid arthritis(714.0) ([facility])- Primary Rheumatoid arthritis Chronic pain syndrome Subacromial bursitis Other specified disorders of rotator cuff syndrome of shoulder and allied disorders documented in this encounter Care Teams Advertising Sales Associate Relationship Specialty Start Date End Date Nolberto Nicole MD PCP - General 07/21/08 12/30/13 Isidro Heredia MD Rheumatology 02/09/11 documented as of this encounter
--- OUTSIDE RECORDS SUMMARY | 2024-05-10 18:50 | XMS_ITS | Encounter Summary ---
Author Organization [facility] Address [address] [place] [address] Care Team Providers Care Supervisor Wet Room Name Role Phone Nolberto Nicole MD Primary Care Provider [phone] Isidro Heredia MD Unavailable Reason for Visit * Treatment (Routine) - Closed Specialty Diagnoses / Procedures Referred By Lawrence shah Referred To Contact Infusion Therapy Nurse Diagnoses Rheumatoid arthritis(714.0) ([facility]) Procedures [place] INJECTION TOCILIZUMAB 1 MG Isidro Heredia MD [address] [facility] [address] Referral ID Status Reason Start Date Expiration Date Visits Re quested Visits Authorized [id number] Closed 03/07/2013 06/05/2013 1 5 Encounter Details Date Type Department Care Team (Late st Contact Info) Description 05/12/2013 11:30 AM LIP CUTTER - 05/12/2013 11:59 PM [facility] Hospital Encounter [facility] - Rheumatology [address] [place] [address] Isidro Heredia MD [address] [place] [address] Discharge Disposition: Home or Self [...] Comments Blood Pressure 138/89 05/12/2013 12:03 PM LIP CUTTER Pulse 81 05/12/2013 12:03 PM LIP CUTTER Temperature 36.3 ??C (97.4 ??F) 05/12/2013 12:[address] Respiratory Rate 16 05/12/2013 12:03 PM LIP CUTTER Oxygen Saturation - - Inhaled Oxygen Concentration - - Weight 113.4 kg (250 lb) 05/12/2013 12:03 PM LIP CUTTER Height 177.8 cm (5' 10 ) 05/12/2013 12:03 PM LIP CUTTER Body Mass Index 35.87 05/12/2013 12:03 PM LIP CUTTER documented in this encounter Discharge Instructions * Discharge Instructions* Mirela Rodrigez, RN - 05/12/2013 12:07 PM LIP CUTTER [place] Rheumatology Post Infusion instructions You have [...] through Sunday 9-5 call the office at [phone] After hours or on the weekend call the exchange at [phone] If you have had lab work done [...] chosen [facility] as your provider. Mirela Rodrigez RN CUTTER * Discharge Instructions* Document, Scanned - 05/16/2013 7:01 PM LIP CUTTER CUTTER documented in this encounter Medications at Time of Discharge Medication Sig Dispensed Refills Start Date End Date Blfpjfrsgdy-Fbmoxzfzk-Kf t C-Mn (GLUCOSAMINE CHONDR 1500 COMPLX PO) [...] - 05/12/2013 12:25 PM CST JOSE Deng [id number] 05/12/2013 BP 138/89 Pulse 81 Temp 97.4 [...] Next treatment? 4 weeks Mirela Rodrigez RN CUTTER documented in this encounter Miscellaneous Notes * Miscellaneous Scans - Document, Scanned - 05/15/2013 5:41 PM CST CUTTER documented in this encounter Plan of Treatment Upcoming Encounters Date Type Department Care Team (Late st Contact Info) Description 06/03/2024 1:00 PM LIP CUTTER Appointment [facility] - Rheumatology [address] [place] [address] 06/03/2024 2:00 PM LIP CUTTER Office Visit [facility] - Rheumatology [address] [place] [address] Gloria Smith MD [address] [place] [phone] documented as of this encounter Visit Diagnoses Not on filedocumented in this encounter Administered Medications Inactive Administered Medications - up to 3 most recent administrations Medication Order MAR Action Action Date Dose Rate Site tocilizumab (ACTEMRA) 460 mg in NaCl 0.9 % IVPB 460 mg, at 100 mL/hr, Intravenous, ONCE, 1 dose, On Sun05/12/13 at 1215 $ Given 05/12/2013 12:19 PM LIP CUTTER 460 mg 100 mL/ hr documented in this encounter Care Teams Supervisor Wet Room Relationship Specialty Start Date End Date Nolberto Nicole MD PCP - General 07/21/08 12/30/13 Isidro Heredia MD Rheumatology 02/09/11 documented as of this encounter
--- OUTSIDE RECORDS SUMMARY | 2024-05-10 18:50 | XMS_ITS | Encounter Summary ---
Author Organization [facility] Address [address] [facility] [address] Care Team Providers Care Printed Circuit Boards Router Name Role Phone Nolberto Nicole MD Primary Care Provider [phone] Isidro Heredia MD Unavailable [phone] Reason for Visit * Reason Onset Date Comments MEDICATION REFILL 03/17/2013 Encounter Details Date Type Department Care Team (Late st Contact Info) Description 03/17/2013 Refill [facility] - Rheumatology [address] [place] [address] Isidro Heredia MD [address] [place] [address] MEDICATION REFILL Social History Tobacco Use [...] CST Informed pt of message for refill OR NET C DEVELOPER * Telephone Encounter - Rea Hagan MA - 03/17/2013 2:54 PM CST This is ok. Mtx was sent to pharm. Can someone put in the reason for visit OR NET C DEVELOPER * Telephone Encounter - Carey Loza - 03/17/2013 10:42 AM CST Patient is having issues with his referral to see the Doctor but needs a script called [facility] for his methotrexate. OR NET C DEVELOPER documented in this encounter Plan of Treatment Upcoming Encounters Date Type Department Care Team (Late st Contact Info) Description 06/03/2024 1:00 PM SENIOR NET C DEVELOPER Appointment [facility] - Rheumatology [address] [place] [address] 06/03/2024 2:00 PM SENIOR NET C DEVELOPER Office Visit [facility] - Rheumatology [address] [place] [address] Gloria Smith MD [address] [place] [phone] documented as of this encounter Visit Diagnoses Not on filedocumented in this encounter Care Teams Printed Circuit Boards Router Relationship Specialty Start Date End Date Nolberto Nicole MD PCP - General 07/21/08 12/30/13 Isidro Heredia MD Rheumatology 02/09/11 documented as of this encounter
--- OUTSIDE RECORDS SUMMARY | 2024-05-10 18:50 | XMS_ITS | Encounter Summary ---
Author Organization [facility] Address [address] [place] [address] Care Team Providers Care Pulverizer Name Role Phone Nolberto Nicole MD Primary Care Provider [phone] Isidro Heredia MD Unavailable [phone] Encounter Details Date Type Department Care Team (Late st Contact Info) Description 04/11/2013 Orders Only [facility] - Rheumatology [address] [place] [address] [phone] Isidro eHredia MD [address] [place] [address] Rheumatoid arthritis (HCC) Social History Tobacco [...] CSTQuick Note: Sent lab letter to pt RINTENDENT TERMINAL * Isidro Heredia MD - 04/16/2013 6:50 AM CSTQuick Note: mtx ok RINTENDENT TERMINAL documented in this encounter Plan of Treatment Upcoming Encounters Date Type Department Care Team (Late st Contact Info) Description 06/03/2024 1:00 PM SUPERINTENDENT TERMINAL Appointment [facility] - Rheumatology [address] [place] [address] 06/03/2024 2:00 PM SUPERINTENDENT TERMINAL Office Visit [facility] - Rheumatology [address] [place] [address] Gloria Smith MD [address] [place] [phone] documented as of this encounter Procedures Procedure Name Priority Date/Time Associated Diagnosis Comments ERYTHROCYTE SEDIMENTATION RATE Routine 04/11/2013 9:30 AM SUPERINTENDENT TERMINAL Rheumatoid Arthritis (Hcc) CBC W AUTO DIFFERENTIAL Routine 04/11/2013 9:30 AM SUPERINTENDENT TERMINAL Rheumatoid Arthritis (Hcc) COMPREHENSIVE METABOLIC PANEL Routine 04/11/2013 9:30 AM SUPERINTENDENT TERMINAL Rheumatoid Arthritis (Hcc) documented in this encounter Results * SED RATE WESTERGREN (04/11/2013 9:30 AM SUPERINTENDENT TERMINAL) Erythrocyte Sedimentation Rate Westergren 20 0 - 30 mm/hr [facility] ACCOUNT BILL Blood specimen (specimen) BLOOD SPECIMEN / Unknown 04/11/2013 9:30 AM SUPERINTENDENT TERMINAL 04/11/2013 6:53 PM SUPERINTENDENT TERMINAL Narrative Resulting Agency Comment [facility] [place] [id number] [facility] ??[facility] [phone] Isidro Heredia MD LAB - HEMATOLOGY OR DERABLES [facility] ACCOUNT BILL * (ABNORMAL) COMPREHENSIVE METABOLIC PANEL (04/11/2013 9:30 AM SUPERINTENDENT TERMINAL) Glucose 92 65 - 99 mg/dL [facility] [...] BLOOD SPECIMEN / Unknown 04/11/2013 9:30 AM SUPERINTENDENT TERMINAL 04/11/2013 6:53 PM SUPERINTENDENT TERMINAL Narrative Resulting Agency Comment [facility] [address] ??[facility] [phone] Isidro Heredia MD LAB - CHEMISTRY ORD ERABLES [facility] ACCOUNT BILL * (ABNORMAL) CBC W AUTO DIFFERENTIAL (04/11/2013 9:30 AM SUPERINTENDENT TERMINAL) WBC 8.0 3.4 - 10.8 x10E3/uL [facility] [...] BLOOD SPECIMEN / Unknown 04/11/2013 9:30 AM SUPERINTENDENT TERMINAL 04/11/2013 6:53 PM SUPERINTENDENT TERMINAL Narrative Resulting Agency Comment [facility] [address] ??[facility] [phone] Isidro Heredia MD LAB - HEMATOLOGY OR DERABLES [facility] ACCOUNT BILL documented in this encounter Visit Diagnoses Diagnosis Rheumatoid arthritis(714.0) (HCC)- Primary Rheumatoid arthritis documented in this encounter Care Teams Pulverizer Relationship Specialty Start Date End Date Nolberto Nicole MD PCP - General 07/21/08 12/30/13 Isidro Heredia MD Rheumatology 02/09/11 documented as of this encounter
--- OUTSIDE RECORDS SUMMARY | 2024-05-10 18:50 | XMS_ITS | Encounter Summary ---
Author Organization [facility] Address [address] [facility] [place] [address] Care Team Providers Care Wire Spooler Name Role Phone Nolberto Nicole MD Primary Care Provider [phone] Isidro Heredia MD Unavailable Reason for Visit * Reason Comments Follow-up ra Shoulder Pain left * Evaluate & Treat (Routine) - Closed Specialty Diagnoses / Procedures Referred By Lawrence t Referred To Contact Diagnoses Rheumatoid arthritis(714.0) (HCC) Procedures [place] OFFICE VISIT DURING HOURS Nolberto Nicole MD [address] [place] [address] Isidro Heredia MD [address] [place] [address] Referral ID Status Reason Start Date Expiration Date Visits Re quested Visits Authorized [id number] Closed 08/03/2011 01/30/2012 1 12 Encounter Details Date Type Department Care Team (Late st Contact Info) Description 12/11/2011 5:30 PM CDT Office Visit [facility] - Rheumatology [address] [place] [address] Isidro Heredia MD [address] [place] [address] Rheumatoid arthritis (HCC) (Primary Dx); [...] Body Mass Index 35.13 05/15/2011 5:19 PM ELECTRICIAN LOCOMOTIVE documented in this encounter Progress Notes * [...] PO) Take by mouth once daily. ??? Rdmdddohkqi-Ppzuuggpq-Vnx C-Mn (GLUCOSAMINE CHONDR 1500 COMPLX PO) Take [...] C-REACTIVE PROTEIN ??? SED RATE WESTERGREN ??? [place] DRAIN/INJECT LARGE JOINT/BURSA ??? oxycodone-acetaminophen (PERCOCET) 5-325 [...] st Contact Info) Description 06/03/2024 1:00 PM ELECTRICIAN LOCOMOTIVE Appointment [facility] - Rheumatology [address] [place] [address] 06/03/2024 2:00 PM ELECTRICIAN LOCOMOTIVE Office Visit [facility] - Rheumatology [address] [place] [address] Gloria Smith MD [address] [place] [phone] documented as of this encounter Procedures Procedure Name Priority Date/Time Associated Diagnosis Comments C-REACTIVE PROTEIN Routine 12/11/2011 6: 20 PM CDT Rheumatoid arthritis (HCC) ERYTHROCYTE SEDIMENTATION RATE Routine 12/11/2011 6:20 PM CDT Rheumatoid arthritis (HCC) CBC W AUTO DIFFERENTIAL Routine 12/11/2011 6:20 PM CDT Rheumatoid arthritis ([facility]) COMPREHENSIVE METABOLIC PANEL Routine 12/11/2011 6:20 PM CDT Rheumatoid arthritis (HCC) documented in this encounter Results * (ABNORMAL) SED RATE WESTERGREN (12/11/2011 6:20 PM CDT) Erythrocyte Sedimentation Rate Westergren 27(H) 0 - 15 mm/hr [facility] ACCOUNT BILL Blood specimen (specimen) BLOOD SPECIMEN / Unknown 12/11/2011 6:20 PM CDT 12/12/2011 4:32 AM CDT Narrative Resulting Agency Comment [facility] ??[facility] [phone] Isidro Heredia MD LAB - HEMATOLOGY OR DERABLES Performing Organization Address City/[facility]/ZIP Co de Phone Number [facility] ACCOUNT BILL * C-REACTIVE PROTEIN (12/11/2011 6:20 PM CDT) C-Reactive Protein 4.4 0.0 - 4.9 mg/L [facility] ACCOUNT BILL Blood specimen (specimen) BLOOD SPECIMEN / Unknown 12/11/2011 6:20 PM CDT 12/12/2011 4:32 AM CDT Narrative Resulting Agency Comment [facility] ??[facility] [phone] Isidro Heredia MD LAB - CHEMISTRY ORD ERABLES Performing Organization Address [facility] Co de [...] AM CDT Narrative Resulting Agency Comment [facility] [address] ??[facility] [phone] Isidro Heredia MD LAB - CHEMISTRY ORD [...] AM CDT Narrative Resulting Agency Comment [facility] [address] ??[facility] [phone] Isidro Heredia MD LAB - HEMATOLOGY OR DERABLES [facility] ACCOUNT BILL documented in this encounter Visit Diagnoses Diagnosis Rheumatoid arthritis(714.0) ([facility])- Primary Rheumatoid arthritis Triceps tendonitis Other enthesopathy of elbow region Chronic pain syndrome documented in this encounter Care Teams Wire Spooler Relationship Specialty Start Date End Date Nolberto Nicole MD PCP - General 07/21/08 12/30/13 Isidro Heredia MD Rheumatology 02/09/11 documented as of this encounter
--- OUTSIDE RECORDS SUMMARY | 2024-05-10 18:50 | XMS_ITS | Encounter Summary ---
Author Organization [facility] Address [address] [facility] [place] [place] [address] Care Team Providers Care Bracelet And Brooch Maker Name Role Phone Nolberto Nicole MD Primary Care Provider [phone] Isidro Heredia MD Unavailable [phone] Encounter Details Date Type Department Care Team (Late st Contact Info) Description 08/19/2012 12:39 PM CDT - 08/19/2012 11:59 PM CDT Hospital Encounter [facility] Medical [facility] - Rheumatology [address] [place] [address] Isidro Heredia MD [address] [place] [address] Discharge Disposition: Home or Self Care [...] Foreman RN - 08/19/2012 1:01 PM CDT [place] Rheumatology Post Infusion instructions [...] through Sunday 9-5 call the office at [phone] After hours or on the weekend call the exchange at [phone] If you have had lab work done [...] Sig Dispensed Refills Start Date End Date Quyqqkfoqyo-Hjqseuefo-Pf t C-Mn (GLUCOSAMINE CHONDR 1500 COMPLX PO) [...] 08/19/2012 1:02 PM CDT JOSE Chalino Deng [id number] 08/19/2012 Patient questionnaire results Health Assessment Questionnaire [...] Contact Info) Description 06/03/2024 1:00 PM PRINTING AGENT Appointment [facility] - Rheumatology [address] [place] [address] 06/03/2024 2:00 PM PRINTING AGENT Office Visit [facility] - Rheumatology [address] [place] [address] Gloria Smith MD [address] [place] [phone] documented as of this encounter Visit [...] mg documented in this encounter Care Teams Bracelet And Brooch Maker Relationship Specialty Start Date End Date Nolberto Nicole MD PCP - General 07/21/08 12/30/13 Isidro Heredia MD Rheumatology 02/09/11 documented as of this encounter
--- OUTSIDE RECORDS SUMMARY | 2024-05-10 18:50 | XMS_ITS | Encounter Summary ---
Author Organization [facility] Address [address] [place] [address] Care Team Providers Care Manager Commercial Name Role Phone Nolberto Nicole MD Primary [...] Rheumatoid arthritis(714.0) ([facility]) Procedures [place] OFFICE VISIT DURING HOURS Nolberto Nicole MD [address] [place] [address] Isidro Heredia MD [address] [place] [address] Referral ID Status Reason Start Date Expiration Date Visits Re quested Visits Authorized [id number] Closed 02/20/2012 08/18/2012 1 5 Encounter Details Date Type Department Care Team (Late st Contact Info) Description 05/27/2012 5:00 PM BELT OPERATOR Office Visit [facility] - Rheumatology [address] [place] [address] Isidro Heredia MD [address] [place] [address] Rheumatoid arthritis (HCC) (Primary Dx); Subacromial bursitis [...] Comments Blood Pressure 130/72 05/27/2012 5:38 PM BELT OPERATOR Pulse 80 05/27/2012 5:38 PM BELT OPERATOR Temperature 36.8 ??C (98.2 ??F) 05/27/2012 5:38 PM CS T Respiratory Rate - - Oxygen Saturation - - Inhaled Oxygen Concentration - - Weight 112.9 kg (248 lb 12.8 oz) 05/27/2012 5:38 PM BELT OPERATOR Height - - Body Mass Index 35.7 05/15/2011 5:19 PM BELT OPERATOR documented in this encounter Progress Notes * Isidro Heredia MD - 06/03/2012 7:00 AM CSTQuick Note: mtx ok OPERATOR * Isidro Heredia MD - 05/27/2012 5:59 [...] PO) Take by mouth once daily. ??? Kubcgxfnfvr-Qzidjgfll-Xqn C-Mn (GLUCOSAMINE CHONDR 1500 COMPLX PO) Take [...] Follow up in office in 4 weeks OPERATOR * Rea Hagan MA - 05/27/2012 5:41 [...] Wt 112.855 kg (248 lb 12.8 oz) OPERATOR documented in this encounter Plan of Treatment Upcoming Encounters Date Type Department Care Team (Late st Contact Info) Description 06/03/2024 1:00 PM BELT OPERATOR Appointment [facility] - Rheumatology [address] [place] [address] 06/03/2024 2:00 PM BELT OPERATOR Office Visit [facility] - Rheumatology [address] [place] [address] Gloria Smith MD [address] [place] [phone] documented as of this encounter Procedures Procedure Name Priority Date/Time Associated Diagnosis Comments C-REACTIVE PROTEIN Routine 05/27/2012 6: 20 PM BELT OPERATOR Rheumatoid arthritis (HCC) ERYTHROCYTE SEDIMENTATION RATE Routine 05/27/2012 6:20 PM BELT OPERATOR Rheumatoid arthritis (HCC) CBC W AUTO DIFFERENTIAL Routine 05/27/2012 6:20 PM BELT OPERATOR Rheumatoid arthritis (HCC) COMPREHENSIVE METABOLIC PANEL Routine 05/27/2012 6:20 PM BELT OPERATOR Rheumatoid arthritis (HCC) documented in this encounter Results * (ABNORMAL) SED RATE WESTERGREN (05/27/2012 6:20 PM BELT OPERATOR) Erythrocyte Sedimentation Rate Westergren 22(H) 0 - 15 mm/hr [facility] ACCOUNT BILL Blood specimen (specimen) BLOOD SPECIMEN / Unknown 05/27/2012 6:20 PM BELT OPERATOR 05/27/2012 7:35 PM BELT OPERATOR Narrative Resulting Agency Comment [facility] [place] [id number] ??[facility] [phone] Isidro Heredia MD LAB - HEMATOLOGY OR DERABLES [facility] ACCOUNT BILL * C-REACTIVE PROTEIN (05/27/2012 6:20 PM BELT OPERATOR) C-Reactive Protein 2.9 0.0 - 4.9 mg/L [facility] ACCOUNT BILL Blood specimen (specimen) BLOOD SPECIMEN / Unknown 05/27/2012 6:20 PM BELT OPERATOR 05/27/2012 7:35 PM BELT OPERATOR Narrative Resulting Agency Comment [facility] [place] [address] ??[facility] [phone] Isidro Heredia MD LAB - CHEMISTRY ORD ERABLES [facility] ACCOUNT BILL * (ABNORMAL) COMPREHENSIVE METABOLIC PANEL (05/27/2012 6:20 PM BELT OPERATOR) Glucose 93 65 - 99 mg/dL [facility] [...] BLOOD SPECIMEN / Unknown 05/27/2012 6:20 PM BELT OPERATOR 05/27/2012 7:35 PM BELT OPERATOR Narrative Resulting Agency Comment [facility] [address] ??[facility] [phone] Isidro Heredia MD LAB - CHEMISTRY ORD ERABLES [facility] ACCOUNT BILL * (ABNORMAL) CBC W AUTO DIFFERENTIAL (05/27/2012 6:20 PM BELT OPERATOR) WBC 11.1(H) 4.0 - 10.5 x10E3/uL [facility] [...] BLOOD SPECIMEN / Unknown 05/27/2012 6:20 PM BELT OPERATOR 05/27/2012 7:35 PM BELT OPERATOR Narrative Resulting Agency Comment [facility] [address] ??[facility] [phone] Isidro Heredia MD LAB - HEMATOLOGY OR DERABLES [facility] ACCOUNT BILL documented in this encounter Visit Diagnoses Diagnosis Rheumatoid arthritis(714.0) ([facility])- Primary Rheumatoid arthritis Subacromial bursitis Other specified disorders of rotator cuff syndrome of shoulder and allied disorders documented in this encounter Care Teams Manager Commercial Relationship Specialty Start Date End Date Nolberto Nicole MD PCP - General 07/21/08 12/30/13 Isidro Heredia MD Rheumatology 02/09/11 documented as of this encounter
--- OUTSIDE RECORDS SUMMARY | 2024-05-10 18:50 | XMS_ITS | Encounter Summary ---
Author Organization [facility] Address [address] [place] [address] Care Team Providers Care Primary Counselor Name Role Phone Nolberto Nicole MD Primary Care Provider Isidro Heredia MD Unavailable [phone] Reason for Visit * Treatment (Routine) - Closed Specialty Diagnoses / Procedures Referred By Lawrence shah Referred To Contact Infusion Therapy Nurse Diagnoses Rheumatoid arthritis(714.0) ([facility]) Procedures [place] INJECTION TOCILIZUMAB 1 MG Isidro Heredia MD [address] [facility] [place] [address] Referral ID Status Reason Start Date Expiration Date Visits Re quested Visits Authorized [id number] Closed 05/01/2013 04/29/2014 1 12 Encounter Details Date Type Department Care Team (Late st Contact Info) Description 06/10/2013 1:30 PM AIRPORT PLANNER - 06/10/2013 11:59 PM AIRPORT PLANNER Hospital Encounter [facility] - Rheumatology [address] [place] [address] Isidro Heredia MD [address] [place] [address] Discharge Disposition: Home or Self [...] Comments Blood Pressure 130/80 06/10/2013 2:00 PM AIRPORT PLANNER Pulse 88 06/10/2013 2:00 PM AIRPORT PLANNER Temperature 36.8 ??C (98.2 ??F) 06/10/2013 2:00 PM CS T Respiratory Rate 16 06/10/2013 2:00 PM AIRPORT PLANNER Oxygen Saturation - - Inhaled Oxygen Concentration - - Weight 113.4 kg (250 lb) 06/10/2013 2:00 PM AIRPORT PLANNER Height 177.8 cm (5' 10 ) 06/10/2013 2:00 PM AIRPORT PLANNER Body Mass Index 35.87 06/10/2013 2:00 PM AIRPORT PLANNER documented in this encounter Discharge Instructions * Discharge Instructions* Carlos Foreman, RN - 06/10/2013 2:05 PM AIRPORT PLANNER NE Rheumatology Post Infusion instructions You have [...] through Sunday 9-5 call the office at [phone] After hours or on the weekend call the exchange at [phone] If you have had lab work done [...] Hospital as your provider. Carlos Foreman RN ORT PLANNER * Discharge Instructions* Document, Scanned - 06/19/2013 8:21 PM AIRPORT PLANNER ORT PLANNER documented in this encounter Medications at Time of Discharge Medication Sig Dispensed Refills Start Date End Date Nubpvqhrbvj-Eayqaycvj-Uj t C-Mn (GLUCOSAMINE CHONDR 1500 COMPLX PO) [...] oxycodone-acetaminophen (PERCOCET) 5-325 MG tabletIndications:Rheuma toid arthritis(714.0) ([facility] [...] - 06/10/2013 2:04 PM CST JOSE Deng [id number] 06/10/2013 Diagnosis: Rheumatoid arthritis [714.0]. Patient questionnaire [...] Yes Next treatment? 4wk Carlos Foreman RN ORT PLANNER documented in this encounter Miscellaneous Notes * Miscellaneous Scans - Document, Scanned - 06/18/2013 10:14 PM CST ORT PLANNER documented in this encounter Plan of Treatment Upcoming Encounters Date Type Department Care Team (Late st Contact Info) Description 06/03/2024 1:00 PM AIRPORT PLANNER Appointment [facility] - Rheumatology [address] [place] [address] [phone] 06/03/2024 2:00 PM AIRPORT PLANNER Office Visit [facility] - Rheumatology [address] [place] [address] [phone] Gloria Smith MD [address] [place] [phone] documented as of this encounter Visit Diagnoses Diagnosis Rheumatoid arthritis(714.0) ([facility])- Primary Rheumatoid arthritis documented in this encounter Administered Medications Inactive Administered Medications - up to 3 most recent administrations Medication Order MAR Action Action Date Dose Rate Site tocilizumab (ACTEMRA) 460 mg in NaCl 0.9 % IVPB 460 mg, at 100 mL/hr, Intravenous, ONCE, 1 dose, On Sun06/10/13 at 1345 $ Given 06/10/2013 2:03 PM AIRPORT PLANNER 460 mg 100 mL/hr documented in this encounter Care Teams Primary Counselor Relationship Specialty Start Date End Date Nolberto Nicole MD PCP - General 07/21/08 12/30/13 Isidro Heredia MD Rheumatology 02/09/11 documented as of this encounter
--- OUTSIDE RECORDS SUMMARY | 2024-05-10 18:50 | XMS_ITS | Encounter Summary ---
Author Organization [facility] Address [address] [place] [address] Care Team Providers Care Ese Teacher Name Role Phone Nolberto Nicole MD Primary Care Provider [phone] Isidro Heredia MD Unavailable [phone] Encounter Details Date Type Department Care Team (Late Contact Info) Description 04/07/2013 Orders Only [facility] - Rheumatology [address] [place] [address] Mirela Rodrigez RN Rheumatoid arthritis (HCC) [...] (Late Contact Info) Description 06/03/2024 1:00 PM HOME HEALTH RN Appointment [facility] - Rheumatology [address] [place] [address] 06/03/2024 2:00 PM HOME HEALTH RN Office Visit [facility] - Rheumatology [address] [place] [address] Gloria Smith MD [address] [place] [phone] documented as of this encounter Visit Diagnoses Diagnosis Rheumatoid arthritis(714.0) ([facility])- Primary Rheumatoid arthritis documented in this encounter Care Teams Ese Teacher Relationship Specialty Start Date End Date Nolberto Nicole MD PCP - General 07/21/08 12/30/13 Isidro Heredia MD Rheumatology 02/09/11 documented as of this encounter
--- OUTSIDE RECORDS SUMMARY | 2024-05-10 18:50 | XMS_ITS | Encounter Summary ---
Author Organization [facility] Address [address] [facility] [place] [address] Care Team Providers Care Embroidery Operator Name Role Phone Nolberto Nicole MD Primary Care Provider [phone] Isidro Heredia MD Unavailable [phone] Reason for Visit * Reason Onset Date Comments MEDICATION REFILL 06/09/2011 Encounter Details Date Type Department Care Team (Late st Contact Info) Description 06/09/2011 Refill [facility] - Rheumatology [address] [place] [address] Isidro Heredia MD [address] [place] [address] MEDICATION REFILL Social History Tobacco Use [...] take Humira injection until pneumonia is resolved. ING COORDINATOR * Telephone Encounter - Miranda Starr - 06/09/2011 1:38 PM CST Called pt to let him know he will need new referral for 06/12/11 visit. He said he is in the hospital for pneumonia and wants refill on Humira. ING COORDINATOR documented in this encounter Plan of Treatment Upcoming Encounters Date Type Department Care Team (Late st Contact Info) Description 06/03/2024 1:00 PM NURSING COORDINATOR Appointment [facility] - Rheumatology [address] [place] [address] [phone] 06/03/2024 2:00 PM NURSING COORDINATOR Office Visit [facility] - Rheumatology [address] [place] [address] Gloria Smith MD [address] [place] [phone] documented as of this encounter Visit Diagnoses Not on filedocumented in this encounter Care Teams Embroidery Operator Relationship Specialty Start Date End Date Nolberto Nicole MD PCP - General 07/21/08 12/30/13 Isidro Heredia MD Rheumatology 02/09/11 documented as of this encounter
--- OUTSIDE RECORDS SUMMARY | 2024-05-10 18:50 | XMS_ITS | Encounter Summary ---
Author Organization [facility] Address [address] [facility] [place] [address] Care Team Providers Care Patient Case Manager Name Role Phone Nolberto Nicole MD Primary Care Provider Isidro Heredia MD Unavailable [phone] Reason for Visit * Reason Comments Rheumatoid Arthritis Pain Joint upper and lower extr emities all over especially the rt hand and knees * Evaluate & Treat (Routine) - Closed Specialty Diagnoses / Procedures Referred By Lawrence t Referred To Contact Diagnoses Rheumatoid arthritis(714.0) (HCC) Procedures [place] OFFICE VISIT DURING HOURS Nolberto Nicole MD 0 [place] [address] Isidro Heredia MD [address] [place] [address] Referral ID Status Reason Start Date Expiration Date Visits Re quested Visits Authorized [id number] Closed 08/15/2012 02/11/2013 1 5 Encounter Details Date Type Department Care Team (Late st Contact Info) Description 02/10/2013 5:00 PM CDT Office Visit [facility] [employer] [facility] - Rheumatology [address] [place] [address] Isidro Heredia MD [address] [place] [address] Rheumatoid arthritis (HCC) (Primary Dx); [...] Active Take by mouth once daily. ??? Yneuvowkxcw-Dhdhlhjau-Jsj C-Mn (GLUCOSAMINE CHONDR 1500 COMPLX PO) Active [...] st Contact Info) Description 06/03/2024 1:00 PM MALE IMPERSONATOR Appointment [facility] - Rheumatology [address] [place] [address] [phone] 06/03/2024 2:00 PM MALE IMPERSONATOR Office Visit [facility] - Rheumatology [address] [place] [address] [phone] Gloria Smith MD [address] [place] [phone] documented as of this encounter Procedures Procedure [...] (Smooth) ? Histone ? Speckled ? Sm, GROUP EXERCISE INSTRUCTOR, SCL-70, ??SLE,MCTD,Scleroderma,Sjogrens ? SS-A/SS-B ? Nucleolar ?SCL-70, PM-1/SCL ??High titers Scleroderma Poly- ? myositis/Scleroderma Overlap ? Centromere ?? Centromere ?PSS w/Crest syndrome variable ?? 02/10/2013 5:37 PM CDT 02/10/2013 7:03 PM CDT Narrative Resulting Agency Comment [facility] [address] [place] [address] ??Formerly [facility] [phone] Isidro Heredia MD LAB - PATHOLOGY/CYT OLOGY [...] CDT Narrative Resulting Agency Comment [facility] [address] ??[facility] [phone] Isidro Heredia MD LAB - SEROLOGY ORDE RABDO Performing Organization Address [facility]/ZIP Co de Phone Number [facility] ACCOUNT BILL * RHEUMATOID FACTOR BLOOD QUANTITATIVE (02/10/2013 5:37 PM CDT) Rheumatoid Factor 9.6 0.0 - 13.9 IU/mL [facility] ACCOUNT BILL Blood specimen (specimen) BLOOD SPECIMEN / Unknown 02/10/2013 5:37 PM CDT 02/10/2013 7:03 PM CDT Narrative Resulting Agency Comment [facility] [address] [place] [address] ??Formerly [facility] [phone] Isidro Heredia MD LAB - CHEMISTRY ORD ERABLES Performing Organization Address [facility] de Phone Number [facility] ACCOUNT BILL * ROSA BLOOD SCREEN W/REFLEX TITER (02/10/2013 5:37 PM CDT) ROSA See patterns [facility] ACCOUNT BILL Comment: ?Negative ?? <1:80 ?Borderline ??1:80 ?Positive ?? >1:80 Blood specimen (specimen) BLOOD SPECIMEN / Unknown 02/10/2013 5:37 PM CDT 02/10/2013 7:03 PM CDT Narrative Resulting Agency Comment [facility] [id number] ??[facility]ly [facility] [phone] Isidro Heredia MD LAB - CHEMISTRY ORD ERABLES Performing Organization Address [facility] Co de Phone Number [facility] ACCOUNT BILL * SED RATE WESTERGREN (02/10/2013 5:33 PM CDT) Erythrocyte Sedimentation Rate Westergren 26 0 - 30 mm/hr [facility] ACCOUNT BILL Blood specimen (specimen) BLOOD SPECIMEN / Unknown 02/10/2013 5:33 PM CDT 02/10/2013 7:03 PM CDT Narrative Resulting Agency Comment [facility] [id number] ??[facility]ly [facility] [phone] Isidro Heredia MD LAB - HEMATOLOGY OR DERABLES Performing Organization Address [facility] de Phone Number [facility] ACCOUNT BILL * C-REACTIVE PROTEIN (02/10/2013 5:33 PM CDT) C-Reactive Protein 4.9 0.0 - 4.9 mg/L [facility] ACCOUNT BILL Blood specimen (specimen) BLOOD SPECIMEN / Unknown 02/10/2013 5:33 PM CDT 02/10/2013 7:03 PM CDT Narrative Resulting Agency Comment [facility] [id number] ??[facility]ly [facility] [phone] Isidro Heredia MD LAB - CHEMISTRY ORD ERABLES Performing Organization Address [facility] Co de Phone Number [facility] [...] CDT Narrative Resulting Agency Comment [facility] [address] ??[facility]ly [facility] [phone] Isidro Heredia MD LAB - CHEMISTRY ORD [...] PM CDT Narrative Resulting Agency Comment [facility] [place] [phone] [facility] ??[facility]ly [facility] [phone] sIidro Heredia MD LAB - HEMATOLOGY OR DERABLES [facility] ACCOUNT BILL documented in this encounter Visit Diagnoses Diagnosis Rheumatoid arthritis(714.0) (HCC)- Primary Rheumatoid arthritis Osteopenia Disorder of bone and cartilage, unspecified Chronic pain syndrome documented in this encounter Care Teams Patient Case Manager Relationship Specialty Start Date End Date Nolberto Nicole MD PCP - General 07/21/08 12/30/13 Isidro Heredia MD Rheumatology 02/09/11 documented as of this encounter
--- OUTSIDE RECORDS SUMMARY | 2024-05-10 18:50 | XMS_ITS | Encounter Summary ---
Author Organization [facility] Address [address] [facility] [place] [address] Care Team Providers Care Sliver Former Name Role Phone Nolberto Nicole MD Primary Care Provider [phone] Isidro Heredia MD Unavailable [phone] Reason for Visit * Reason Comments Follow-up ra Pain Back lower. sharp pain mo re on the left. stabbing pain Swelling Hand obdulia Pain Lower Extremity ankles ans knees Fatigue * Evaluate & Treat (Routine) - Closed Specialty Diagnoses / Procedures Referred By Contac t Referred To Contact Diagnoses Rheumatoid arthritis(714.0) ([facility]) Procedures [place] OFFICE VISIT DURING HOURS Nolberto Nicole MD 0 [place] [address] Isidro Heredia MD [address] [place] [address] Referral ID Status Reason Start Date Expiration Date Visits Re quested Visits Authorized [id number] Closed 08/03/2011 01/30/2012 1 12 Encounter Details Date Type Department Care Team (Late st Contact Info) Description 10/09/2011 5:30 PM CDT Office Visit [facility] [employer] [facility] - Rheumatology [address] [place] [address] [phone] Isidro Heredia MD [address] [facility] [place] [address] Rheumatoid arthritis (HCC) (Primary Dx); [...] Body Mass Index 34.87 05/15/2011 5:19 PM KNOTTING MACHINE OPERATOR PORTABLE documented in this encounter Progress Notes * [...] PO) Take by mouth once daily. ??? Advcowducbv-Pmtcczsha-Rjq C-Mn (GLUCOSAMINE CHONDR 1500 COMPLX PO) Take [...] st Contact Info) Description 06/03/2024 1:00 PM KNOTTING MACHINE OPERATOR PORTABLE Appointment [facility] - Rheumatology [address] [place] [address] 06/03/2024 2:00 PM KNOTTING MACHINE OPERATOR PORTABLE Office Visit [facility] - Rheumatology [address] [place] [address] Gloria Smith MD [address] [place] [phone] documented as of this encounter Procedures [...] PM CDT Narrative Resulting Agency Comment [facility] [address] [facility] ??[facility] [phone] Isidro Heredia MD LAB - HEMATOLOGY OR DERABLES [facility] ACCOUNT BILL * C-REACTIVE PROTEIN (10/09/2011 5:43 PM CDT) C-Reactive Protein 2.3 0.0 - 4.9 mg/L [facility] ACCOUNT BILL Blood specimen (specimen) BLOOD SPECIMEN / Unknown 10/09/2011 5:43 PM CDT 10/09/2011 10:15 PM CDT Narrative Resulting Agency Comment [facility] [address] ??[facility] [phone] Isidro Heredia MD LAB - CHEMISTRY ORD [...] PM CDT Narrative Resulting Agency Comment [facility] [address] ??[facility] [phone] Isidro Heredia MD LAB - CHEMISTRY ORD [...] PM CDT Narrative Resulting Agency Comment [facility] [address] ??[facility] [phone] Isidro Heredia MD LAB - HEMATOLOGY OR DERABLES [facility] ACCOUNT BILL documented in this encounter Visit Diagnoses Diagnosis Rheumatoid arthritis(714.0) (HCC)- Primary Rheumatoid arthritis Triceps tendonitis Other enthesopathy of elbow region LBP (low back pain) Lumbago documented in this encounter Care Teams Sliver Former Relationship Specialty Start Date End Date Nolberto Nicole MD PCP - General 07/21/08 12/30/13 Isidro Heredia MD Rheumatology 02/09/11 documented as of this encounter
--- OUTSIDE RECORDS SUMMARY | 2024-05-10 18:50 | XMS_ITS | Encounter Summary ---
Author Organization [facility] Address [address] [facility] [place] [address] Care Team Providers Care Medical Office Assistant Name Role Phone Nolberto Nicole MD Primary Care Provider [phone] Isidro Heredia MD Unavailable [phone] Tomas Hyman MD Primary Care Provider [phone] Encounter Details Date Type Department Care Team (Late st Contact Info) Description 01/09/2013 Orders Only [facility] - Rheumatology [address] [place] [address] Carlos Foreman RN Social History Tobacco [...] (Late Contact Info) Description 06/03/2024 1:00 PM EXPRESSIVE THERAPIST Appointment [facility] - Rheumatology [address] [place] [address] 06/03/2024 2:00 PM EXPRESSIVE THERAPIST Office Visit [facility] - Rheumatology [address] [place] [address] Gloria Smith MD [address] [place] [phone] documented as of this encounter Visit Diagnoses Not on filedocumented in this encounter Care Teams Medical Office Assistant Relationship Specialty Start Date End Date Nolberto Nicole MD PCP - General 07/21/08 12/30/13 Tomas Hyman MD [address] [facility] [address] [place] [address] PCP - General Family Medicine 12/31/13 05/09/18 Isidro Heredia MD Rheumatology 02/09/11 documented as of this encounter
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
--- OUTSIDE RECORDS SUMMARY | 2024-05-10 18:51 | XMS_ITS | Encounter Summary ---
Author Organization [facility] Address [address] [place] [address] [place] [address] Care Team Providers Care Tree Trimmer Name Role Phone Nolberto Nicole MD Primary Care Provider [phone] Reason for Visit * Reason Comments Rheumatoid Arthritis followup Encounter Details Date Type Department Care Team (Late st Contact Info) Description 10/12/2008 5:15 PM CDT Office Visit [facility] - Rheumatology [address] [place] [address] Isidro Heredia MD [address] [place] [address] Rheumatoid Arthritis (HCC) (Primary Dx); GERD (Gastroesophageal [...] Contact Info) Description 06/03/2024 1:00 PM CAMP PROGRAM DIRECTOR Appointment [facility] - Rheumatology [address] [place] [address] 06/03/2024 2:00 PM CAMP PROGRAM DIRECTOR Office Visit [facility] - Rheumatology [address] [place] [address] Gloria Smith MD [address] [place] [address] [place] [phone] Scheduled Orders Name Type Priority Associated Diagnoses [...] PM CDT Narrative Resulting Agency Comment [facility] [place] [id number] [facility] ??[facility] [phone] Isidro Heredia MD LAB - HEMATOLOGY OR DERABLES [facility] ACCOUNT BILL * (ABNORMAL) C-REACTIVE PROTEIN (10/12/2008 6:16 PM CDT) C-Reactive Protein 12.9(H) 0.0 - 4.9 mg/L [facility] ACCOUNT BILL BLOOD SPECIMEN / Unknown 10/12/2008 6:16 PM CDT 10/12/2008 9:22 PM CDT Narrative Resulting Agency Comment [facility] [address] [facility] ??[facility] [phone] Isidro Heredia MD LAB - CHEMISTRY ORD [...] Narrative Resulting Agency Comment [facility] [address] [facility] ??[facility] [phone] Isidro Heredia MD LAB - CHEMISTRY ORD ERABLES [facility] ACCOUNT BILL documented in this encounter Visit Diagnoses Diagnosis Rheumatoid arthritis(714.0) (HCC)- Primary Rheumatoid arthritis GERD (gastroesophageal reflux disease) Esophageal reflux Osteopenia Disorder of bone and cartilage, unspecified documented in this encounter Care Teams Tree Trimmer Relationship Specialty Start Date End Date Nolberto Nicole MD PCP - General 07/21/08 12/30/13 documented as of this encounter
--- OUTSIDE RECORDS SUMMARY | 2024-05-10 18:51 | XMS_ITS | Encounter Summary ---
Author Organization [facility] Address [address] [place] [address] [place] [address] Care Team Providers Care Decorative Cutting Machine Tender Name Role Phone Nolberto Nicole MD Primary Care Provider [phone] Reason for Visit * Reason Comments Shoulder Pain rt Encounter Details Date Type Department Care Team (Late st Contact Info) Description 01/10/2010 4:15 PM CDT Office Visit [facility] - Rheumatology [address] [place] [address] Isidro Heredia MD [address] [place] [address] Rheumatoid Arthritis (HCC) (Primary Dx); Osteopenia Social [...] Contact Info) Description 06/03/2024 1:[address] BAILIFF Appointment [facility] - Rheumatology [address] [place] [address] [phone] 06/03/2024 2:[address] BAILIFF Office Visit [facility] - Rheumatology [address] [place] [address] Gloria Smith MD [address] [place] [phone] documented as of this encounter Procedures Procedure [...] CDT Narrative Resulting Agency Comment [facility] [address] ??[facility] [phone] Isidro Heredia MD LAB - HEMATOLOGY OR DERABLES [facility] ACCOUNT BILL * C-REACTIVE PROTEIN (01/10/2010 5:14 PM CDT) C-Reactive Protein 3.4 0.0 - 4.9 mg/L [facility] ACCOUNT BILL BLOOD SPECIMEN / Unknown 01/10/2010 5:14 PM CDT 01/10/2010 8:33 PM CDT Narrative Resulting Agency Comment [facility] [address] ??[facility] [phone] Isidro Heredia MD LAB - CHEMISTRY ORD [...] CDT Narrative Resulting Agency Comment [facility] [address] ??[facility]ly [facility] [phone] Isidro Heredia MD LAB - CHEMISTRY ORD [...] CDT Narrative Resulting Agency Comment [facility] [address] ??[facility] [phone] Isidro Heredia MD LAB - HEMATOLOGY OR DERABLES [facility] ACCOUNT BILL documented in this encounter Visit Diagnoses Diagnosis Rheumatoid arthritis(714.0) ([facility])- Primary Rheumatoid arthritis Osteopenia Disorder of bone and cartilage, unspecified documented in this encounter Care Teams Decorative Cutting Machine Tender Relationship Specialty Start Date End Date Nolberto Nicole MD PCP - General 07/21/08 12/30/13 documented as of this encounter
--- OUTSIDE RECORDS SUMMARY | 2024-05-10 18:51 | XMS_ITS | Encounter Summary ---
Author Organization [facility] Address [address] [facility] [address] Care Team Providers Care Emr Trainer Name Role Phone Nolberto Nicole MD Primary Care Provider [phone] Reason for Visit * Reason Comments Pain Hand with swelling. (rt) Pain Knee rt. with some swelli ng Shoulder Pain rt Encounter Details Date Type Department Care Team (Late st Contact Info) Description 12/12/2010 5:15 PM CDT Office Visit [facility] - Rheumatology [address] [place] [address] Isidro Heredia MD [address] [place] [address] Rheumatoid arthritis (HCC) (Primary Dx); Triceps [...] st Contact Info) Description 06/03/2024 1:00 PM BLEACHER SULFITE PULP Appointment [facility] - Rheumatology [address] [place] [address] [phone] 06/03/2024 2:00 PM BLEACHER SULFITE PULP Office Visit [facility] - Rheumatology [address] [place] [address] Gloria Smith MD [address] [place] [phone] documented as of this encounter Procedures [...] PM CDT Narrative Resulting Agency Comment [facility] [place] [address] [facility] ??[facility] [phone] Isidro Heredia MD LAB - HEMATOLOGY OR DERABLES [facility] ACCOUNT BILL * (ABNORMAL) C-REACTIVE PROTEIN (12/12/2010 6:06 PM CDT) C-Reactive Protein 5.2(H) 0.0 - 4.9 mg/L [facility] ACCOUNT BILL BLOOD SPECIMEN / Unknown 12/12/2010 6:06 PM CDT 12/12/2010 8:59 PM CDT Narrative Resulting Agency Comment [facility] [address] ??[facility] [phone] Isidro Heredia MD LAB - CHEMISTRY ORD [...] CDT Narrative Resulting Agency Comment [facility] [address] ??[facility] [phone] Isidro Heredia MD LAB - HEMATOLOGY OR [...] CDT Narrative Resulting Agency Comment [facility] [address] ??[facility] [phone] Isidro Heredia MD LAB - CHEMISTRY ORD ERABLES [facility] ACCOUNT BILL documented in this encounter Visit Diagnoses Diagnosis Rheumatoid arthritis(714.0) (HCC)- Primary Rheumatoid arthritis Triceps tendonitis Other enthesopathy of elbow region documented in this encounter Care Teams Emr Trainer Relationship Specialty Start Date End Date Nolberto Nicole MD PCP - General 07/21/08 12/30/13 documented as of this encounter
--- OUTSIDE RECORDS SUMMARY | 2024-05-10 18:51 | XMS_ITS | Encounter Summary ---
Author Organization [facility] Address [address] [place] [address] [place] [address] Care Team Providers Care Swimmer Name Role Phone Nolberto Nicole MD Primary Care Provider [phone] Reason for Visit * Reason Comments Swelling Hand some swelling General Pain Scale: 7/10 Shoulder Pain rt Encounter Details Date Type Department Care Team (Late st Contact Info) Description 08/29/2010 5:00 PM CDT Office Visit [facility] - Rheumatology [address] [place] [address] [phone] Isidro Heredia MD [address] [place] [address] Rheumatoid arthritis (HCC) (Primary Dx) Social [...] st Contact Info) Description 06/03/2024 1:00 PM LABOR RELATIONS DIRECTOR Appointment [facility] - Rheumatology [address] [place] [address] 06/03/2024 2:00 PM LABOR RELATIONS DIRECTOR Office Visit [facility] - Rheumatology [address] [place] [address] Gloria Smith MD [address] [place] [phone] documented as of this encounter Procedures [...] 9:07 PM CDT Narrative Resulting Agency Comment [facility] ??Counts include 234 beds at the [facility] [phone] Isidro Heredia MD LAB - HEMATOLOGY OR DERABLES [facility] ACCOUNT BILL * C-REACTIVE PROTEIN (08/29/2010 5:44 PM CDT) C-Reactive Protein 1.9 0.0 - 4.9 mg/L [facility] ACCOUNT BILL BLOOD SPECIMEN / Unknown 08/29/2010 5:44 PM CDT 08/29/2010 9:07 PM CDT Narrative Resulting Agency Comment [facility] ??Counts include 234 beds at the [facility] [phone] Isidro Heredia MD LAB - CHEMISTRY ORD [...] CDT Narrative Resulting Agency Comment [facility] [address] ??Counts include 234 beds at the [facility] [phone] Isidro Heredia MD LAB - CHEMISTRY ORD [...] CDT Narrative Resulting Agency Comment [facility] [address] ??Counts include 234 beds at the [facility] [phone] Isidro Heredia MD LAB - HEMATOLOGY OR DERABLES [facility] ACCOUNT BILL documented in this encounter Visit Diagnoses Diagnosis Rheumatoid arthritis(714.0) (HCC)- Primary Rheumatoid arthritis documented in this encounter Care Teams Swimmer Relationship Specialty Start Date End Date Nolberto Nicole MD PCP - General 07/21/08 12/30/13 documented as of this encounter
--- OUTSIDE RECORDS SUMMARY | 2024-05-10 18:51 | XMS_ITS | Encounter Summary ---
Author Organization [facility] Address [address] [place] [address] Care Team Providers Care Chemical Milling Processor Name Role Phone Nolberto Nicole MD Primary Care Provider [phone] Reason for Visit * Reason Comments Shoulder Pain left. rt hurt little General pt has stopped the h umira injection due to fungal infection x 4 months. Pain Joint Pain Side rt. very tender to t ouch Encounter Details Date Type Department Care Team (Late st Contact Info) Description 06/27/2010 4:00 PM KNIFER UP Office Visit [facility] - Rheumatology [address] [place] [address] Isidro Heredia MD [address] [place] [address] [phone] Rheumatoid arthritis (HCC) (Primary Dx); Fungus infection [...] Comments Blood Pressure 140/86 06/27/2010 4:21 PM KNIFER UP Pulse 96 06/27/2010 4:21 PM KNIFER UP Temperature - - Respiratory Rate - - Oxygen Saturation - - Inhaled Oxygen Concentration - - Weight 112 kg (247 lb) 06/27/2010 4:21 PM KNIFER UP Height - - Body Mass Index 35.44 02/08/2009 5:43 PM CDT documented in this encounter Progress Notes * Yamileth Rodríguez MA - 07/02/2010 3:42 PM CSTQuick Note: Letter mailed to patient regarding lab results. ER UP * Isidro Heredia MD - 07/02/2010 7:09 AM CSTQuick Note: mtx ok Wbc Sl inc due to recent infection ER UP * Isidro Heredia MD - 06/27/2010 5:00 [...] up in office in 4 weeks ER UP * Rea Hagan MA - 06/27/2010 4:21 PM CST Chief Complaint Patient presents with ??? Shoulder Pain left. rt hurt little ??? General pt has stopped the humira injection due to fungal infection x 4 months. ??? Pain Joint ??? Pain Side rt. very tender to touch BP 140/86 Pulse 96 Wt 247 lb (112.038 kg) ER UP documented in this encounter Plan of Treatment Upcoming Encounters Date Type Department Care Team (Late st Contact Info) Description 06/03/2024 1:00 PM KNIFER UP Appointment [facility] - Rheumatology [address] [place] [address] 06/03/2024 2:00 PM KNIFER UP Office Visit [facility] - Rheumatology [address] [place] [address] Gloria Smith MD [address] [place] [phone] documented as of this encounter Procedures Procedure Name Priority Date/Time Associated Diagnosis Comments ERYTHROCYTE SEDIMENTATION RATE Routine 06/27/2010 4:46 PM KNIFER UP Rheumatoid arthritis (HCC) CBC W AUTO DIFFERENTIAL Routine 06/27/2010 4:46 PM KNIFER UP Rheumatoid arthritis (HCC) C-REACTIVE PROTEIN Routine 06/27/2010 4: 45 PM KNIFER UP Rheumatoid arthritis (HCC) COMPREHENSIVE METABOLIC PANEL Routine 06/27/2010 4:45 PM KNIFER UP Rheumatoid arthritis (HCC) documented in this encounter Results * (ABNORMAL) SED RATE WESTERGREN AUTO (06/27/2010 4:46 PM KNIFER UP) Erythrocyte Sedimentation Rate Westergren 22(H) 0 - 15 mm/hr [facility] ACCOUNT BILL BLOOD SPECIMEN / Unknown 06/27/2010 4:46 PM KNIFER UP 06/27/2010 10:21 PM KNIFER UP Narrative Resulting Agency Comment [facility] [address] ??[facility] [phone] Isidro Heredia MD LAB - HEMATOLOGY OR DERABLES [facility] ACCOUNT BILL * (ABNORMAL) CBC W AUTO DIFFERENTIAL (06/27/2010 4:46 PM KNIFER UP) WBC 13.3(H) 4.0 - 10.5 x10E3/uL [facility] [...] BLOOD SPECIMEN / Unknown 06/27/2010 4:46 PM KNIFER UP 06/27/2010 10:21 PM KNIFER UP Narrative Resulting Agency Comment [facility] [address] ??[facility] [phone] Isidro Heredia MD LAB - HEMATOLOGY OR DERABLES Performing Organization Address [facility] de Phone Number [facility] ACCOUNT BILL * (ABNORMAL) C-REACTIVE PROTEIN (06/27/2010 4:45 PM KNIFER UP) C-Reactive Protein 5.8(H) 0.0 - 4.9 mg/L [facility] ACCOUNT BILL BLOOD SPECIMEN / Unknown 06/27/2010 4:45 PM KNIFER UP 06/27/2010 9:16 PM KNIFER UP Narrative Resulting Agency Comment [facility] [address] ??[facility] [phone] Isidro Heredia MD LAB - CHEMISTRY ORD ERABLES Performing Organization Address City/[facility]/ZIP Co de Phone Number [facility] ACCOUNT BILL * (ABNORMAL) COMPREHENSIVE METABOLIC PANEL (06/27/2010 4:45 PM KNIFER UP) Glucose 85 65 - 99 mg/dL [facility] [...] BLOOD SPECIMEN / Unknown 06/27/2010 4:45 PM KNIFER UP 06/27/2010 9:16 PM KNIFER UP Narrative Resulting Agency Comment [facility] [address] ??[facility] [phone] Isidro Heredia MD LAB - CHEMISTRY ORD ERABLES [facility] ACCOUNT BILL documented in this encounter Visit Diagnoses Diagnosis Rheumatoid arthritis(714.0) (HCC)- Primary Rheumatoid arthritis Fungus infection Other and unspecified mycoses documented in this encounter Care Teams Chemical Milling Processor Relationship Specialty Start Date End Date Nolberto Nicole MD PCP - General 07/21/08 12/30/13 documented as of this encounter
--- OUTSIDE RECORDS SUMMARY | 2024-05-10 18:51 | XMS_ITS | Encounter Summary ---
Author Organization [facility] Address [address] [place] [address] [place] [address] Care Team Providers Care Data Center Engineer Name Role Phone Nolberto Nicole MD Primary Care Provider [phone] Reason for Visit * Reason Comments Rheumatoid Arthritis followup Encounter Details Date Type Department Care Team (Late st Contact Info) Description 11/16/2008 5:15 PM CDT Office Visit [facility] - Rheumatology [address] [place] [address] Isidro Heredia MD [address] [place] [address] Rheumatoid Arthritis (HCC) (Primary Dx); GERD (Gastroesophageal [...] for 10 weeks spondylosis C5C6 [place] Current outpatient prescriptions prior to encounter Medication [...] st Contact Info) Description 06/03/2024 1:00 PM CLEAN OUT DRILLER Appointment [facility] - Rheumatology [address] [place] [address] [phone] 06/03/2024 2:00 PM CLEAN OUT DRILLER Office Visit [facility] - Rheumatology [address] [place] [address] [phone] Gloria Smith MD [address] [place] [address] [phone] Scheduled Orders Name Type Priority Associated Diagnoses [...] CDT Narrative Resulting Agency Comment [facility] [address] ??[facility] [phone] Isidro Heredia MD LAB - CHEMISTRY ORD [...] NOT AVAILABLE Resulting Agency Comment [facility] [address] ??[facility] [phone] Isidro Heredia MD LAB - HEMATOLOGY OR DERABLES [facility] ACCOUNT BILL documented in this encounter Visit Diagnoses Diagnosis Rheumatoid arthritis(714.0) ([facility])- Primary Rheumatoid arthritis GERD (gastroesophageal reflux disease) Esophageal reflux Osteopenia Disorder of bone and cartilage, unspecified documented in this encounter Care Teams Data Center Engineer Relationship Specialty Start Date End Date Nolberto Nicole MD PCP - General 07/21/08 12/30/13 documented as of this encounter
--- OUTSIDE RECORDS SUMMARY | 2024-05-10 18:51 | XMS_ITS | Encounter Summary ---
Author Organization [facility] Address [address] [facility] [address] [place] [address] Care Team Providers Care Pyrometallurgical Engineer Name Role Phone Nolberto Nicole MD Primary Care Provider Encounter Details Date Type Department Care Team (Late Contact Info) Description 08/24/2008 Orders Only [facility] - Rheumatology [address] [place] [address] Isidro Heredia MD [address] [place] [address] Social History Tobacco Use Types Packs/Day [...] Contact Info) Description 06/03/2024 1:00 PM MANAGER PRESENTATION Appointment [facility] - Rheumatology [address] [place] [address] 06/03/2024 2:00 PM MANAGER PRESENTATION Office Visit [facility] - Rheumatology [address] [place] [address] Gloria Smith MD [address] [place] [phone] documented as of this encounter Procedures [...] CDT Narrative Resulting Agency Comment [facility] [address] ??[facility] [phone] Isidro Heredia MD LAB - CHEMISTRY ORD ERABLES Performing Organization Address City/[facility] Co de Phone Number [facility] INSURANCE BILL * RHEUMATOID FACTOR BLOOD QUANTITATIVE (08/24/2008 6:37 PM CDT) Pathologist [facility] Rheumatoid Factor 5.0 0.0 - 13.9 IU/mL [facility] INSURANCE BILL 08/24/2008 6:37 PM CDT 08/24/2008 9:56 PM CDT Narrative Resulting Agency Comment [facility] [place] [address] [facility] ??[facility] [phone] Isidro Heredia MD LAB - CHEMISTRY ORD ERABLES [facility] INSURANCE BILL documented in this encounter Visit Diagnoses Not on filedocumented in this encounter Care Teams Pyrometallurgical Engineer Relationship Specialty Start Date End Date Nolberto Nicole MD PCP - General 07/21/08 12/30/13 documented as of this encounter
--- OUTSIDE RECORDS SUMMARY | 2024-05-10 18:51 | XMS_ITS | Encounter Summary ---
Author Organization [facility] Address [address] [facility] [place] [address] Care Team Providers Care Residential Field Manager Name Role Phone Nolberto Nicole MD Primary Care Provider [phone] Reason for Visit * Reason Onset Date Comments Letter 09/14/2008 Encounter Details Date Type Department Care Team (Late st Contact Info) Description 09/14/2008 Telephone [facility] - Rheumatology [address] [place], [place] [phone] Isidro Heredia MD [address] [place] [address] Letter Social History Tobacco Use Types Packs/Day [...] Spondylitis. Faxed medical records release form to [phone] for medical records release request * Telephone Encounter - Evert Pisanomy - 09/14/2008 2:00 PM CDT Patient called in a needs a letter for [facility] documented in this encounter Plan of Treatment Upcoming Encounters Date Type Department Care Team (Late st Contact Info) Description 06/03/2024 1:00 PM LEAD SYSTEMS ANALYST Appointment [facility] - Rheumatology [address] [place] [address] [phone] 06/03/2024 2:00 PM LEAD SYSTEMS ANALYST Office Visit [facility] - Rheumatology [address] [place] [address] Gloria Smith MD [address] [place] [address] [phone] documented as of this encounter Visit Diagnoses Not on filedocumented in this encounter Care Teams Residential Field Manager Relationship Specialty Start Date End Date Nolberto Nicole MD PCP - General 07/21/08 12/30/13 documented as of this encounter
--- OUTSIDE RECORDS SUMMARY | 2024-05-10 18:51 | XMS_ITS | Encounter Summary ---
Author Organization [facility] Address [address] [place] [address] Care Team Providers Care Varnish Melter Name Role Phone Nolberto Nicole MD Primary Care Provider [phone] Reason for Visit * Reason Comments Follow-up ra General end of last week shafer, breathing problem due to mole in air condition at job. chest still feels heavy Swelling Joint GENERALIZED BODY ACHES Pain Extremity obdulia ankle bruised Pain Leg obdulia Encounter Details Date Type Department Care Team (Late st Contact Info) Description 11/08/2009 5:00 PM CDT Office Visit [facility] Medical [facility] - Rheumatology [address] [place] [address] Isidro Heredia MD [address] [place], [place] [phone] Rheumatoid Arthritis (HCC) (Primary Dx) Social History [...] st Contact Info) Description 06/03/2024 1:00 PM AVIONICS SYSTEMS INTEGRATION SPECIALIST Appointment [facility] - Rheumatology [address] [place] [address] [phone] 06/03/2024 2:00 PM AVIONICS SYSTEMS INTEGRATION SPECIALIST Office Visit [facility] - Rheumatology [address] [place] [address] [phone] Gloria Smith MD [address] [place] [phone] documented as of this encounter Procedures Procedure [...] PM CDT Narrative Resulting Agency Comment [facility] [place] [address] [facility] ??[facility] [id number] Isidro Heredia MD LAB - HEMATOLOGY OR [...] PM CDT Narrative Resulting Agency Comment [facility] [address] ??[facility] [phone] Isidro Heredia MD LAB - SEROLOGY ORDAvelino ARAUJO [facility] ACCOUNT BILL * C-REACTIVE PROTEIN (11/08/2009 5:18 PM CDT) C-Reactive Protein 3.2 0.0 - 4.9 mg/L [facility] ACCOUNT BILL BLOOD SPECIMEN / Unknown 11/08/2009 5:18 PM CDT 11/08/2009 8:47 PM CDT Narrative Resulting Agency Comment [facility] [address] ??[facility] [phone] Isidro Heredia MD LAB - CHEMISTRY ORD [...] CDT Narrative Resulting Agency Comment [facility] [address] ??[facility] [id number] Isidro Heredia MD LAB - CHEMISTRY ORD ERABLES [facility] ACCOUNT BILL documented in this encounter Visit Diagnoses Diagnosis Rheumatoid arthritis(714.0) ([facility])- Primary Rheumatoid arthritis documented in this encounter Care Teams Varnish Melter Relationship Specialty Start Date End Date Nolberto Nicole MD PCP - General 07/21/08 12/30/13 documented as of this encounter
--- OUTSIDE RECORDS SUMMARY | 2024-05-10 18:51 | XMS_ITS | Encounter Summary ---
Author Organization [facility] Address [address] [facility] [place] [address] Care Team Providers Care Knitting Machine Fixer Head Name Role Phone Nolberto Nicole MD Primary Care Provider [phone] Encounter Details Date Type Department Care Team (Late st Contact Info) Description 08/30/2009 Orders Only [facility] - Rheumatology [address] [place] [address] [phone] Isidro Heredia MD [address] [place] [address] [phone] Social History Tobacco Use Types Packs/Day Years [...] st Contact Info) Description 06/03/2024 1:00 PM TUMBLERS SUPERVISOR Appointment [facility] - Rheumatology [address] [place] [address] 06/03/2024 2:00 PM TUMBLERS SUPERVISOR Office Visit [facility] - Rheumatology [address] [place] [address] Gloria Smith MD [address] [place] [phone] documented as of this encounter Procedures [...] Narrative Resulting Agency Comment [facility] [place] [address] [facility] ??[facility] [phone] Isidro Heredia MD LAB - CHEMISTRY ORD [...] CDT Narrative Resulting Agency Comment [facility] [address] ??[facility] [phone] Isidro Heredia MD LAB - CHEMISTRY ORD [...] RESULT NOT AVAILABLE Resulting Agency Comment [facility] [address] ??[facility] [phone] Isidro Heredia MD LAB - HEMATOLOGY OR DERABLES [facility] ACCOUNT BILL documented in this encounter Visit Diagnoses Not on filedocumented in this encounter Care Teams Knitting Machine Fixer Head Relationship Specialty Start Date End Date Nolberto Nicole MD PCP - General 07/21/08 12/30/13 documented as of this encounter
--- OUTSIDE RECORDS SUMMARY | 2024-05-10 18:51 | XMS_ITS | Encounter Summary ---
Author Organization [facility] Address [address] [place] [address] [place] [address] Care Team Providers Care Timber Management Professor Name Role Phone Nolberto Nicole MD Primary Care Provider [phone] Reason for Visit * Reason Comments Rheumatoid Arthritis followup Encounter Details Date Type Department Care Team (Late st Contact Info) Description 07/05/2009 5:15 PM AGILE SCRUM MASTER Office Visit [facility] - Rheumatology [address] [place] [address] [phone] Isidro Heredia MD [address] [place] [address] Rheumatoid Arthritis (HCC) (Primary Dx); Osteopenia; Subacromial [...] Comments Blood Pressure 100/80 07/05/2009 5:37 PM AGILE SCRUM MASTER Pulse 60 07/05/2009 5:37 PM AGILE SCRUM MASTER Temperature - - Respiratory Rate - - Oxygen Saturation - - Inhaled Oxygen Concentration - - Weight 110.2 kg (243 lb) 07/05/2009 5:37 PM AGILE SCRUM MASTER Height - - Body Mass Index 34.87 [...] bursa. Patient tolerated procedure well without complications. E SCRUM MASTER * Emily Salinas RN - 07/05/2009 5:40 PM CST BP 100/80 Pulse 60 Wt 110.224 kg (243 lb) GH level 6/10, except pain in bilateral shoulders 8/10 worst in left shoulder unable to lift a cup E SCRUM MASTER documented in this encounter Plan of Treatment Upcoming Encounters Date Type Department Care Team (Late st Contact Info) Description 06/03/2024 1:00 PM AGILE SCRUM MASTER Appointment [facility] - Rheumatology [address] [place] [address] 06/03/2024 2:00 PM AGILE SCRUM MASTER Office Visit [facility] - Rheumatology [address] [place] [address] Gloria Smith MD [address] [place] [phone] documented as of this encounter Visit Diagnoses Diagnosis Rheumatoid arthritis(714.0) ([facility])- Primary Rheumatoid arthritis Osteopenia Disorder of bone and cartilage, unspecified Subacromial bursitis Other specified disorders of rotator cuff syndrome of shoulder and allied disorders documented in this encounter Care Teams Timber Management Professor Relationship Specialty Start Date End Date Nolberto Nicole MD PCP - General 07/21/08 12/30/13 documented as of this encounter
--- OUTSIDE RECORDS SUMMARY | 2024-05-10 18:51 | XMS_ITS | Encounter Summary ---
Author Organization [facility] Address [address] [facility] [place] [address] Care Team Providers Care Cut Out Press Operator Name Role Phone Nolberto Nicole MD Primary Care Provider [phone] Reason for Visit * Reason Comments General want to discuss swit fred [id number] - nausea. want to take Percocet General taking Cipro for div erticulitis Encounter Details Date Type Department Care Team (Late st Contact Info) Description 12/14/2008 5:15 PM CDT Office Visit [facility] Medical [facility] - Rheumatology [address] [place] [address] Isidro Heredia MD [address] [place], [place] [phone] Rheumatoid Arthritis (HCC) (Primary Dx) Social History [...] with ??? General want to discuss switching [id number] - nausea. want to take Percocet 5/325 [...] with ??? General want to discuss switching [id number] - nausea. want to take Percocet 5/325 ??? General taking Cipro for diverticulitis BP 128/86 Pulse 88 Wt 109.77 kg (242 lb) documented in this encounter Plan of Treatment Upcoming Encounters Date Type Department Care Team (Late st Contact Info) Description 06/03/2024 1:00 PM ANESTHESIOLOGY PHYSICIAN Appointment [facility] - Rheumatology [address] [place] [address] 06/03/2024 2:00 PM ANESTHESIOLOGY PHYSICIAN Office Visit [facility] - Rheumatology [address] [place] [address] Gloria Smith MD [address] [place] [phone] documented as of this encounter Procedures [...] PM CDT Narrative Resulting Agency Comment [facility] [place] [address] [facility] ??[facility] [phone] Isidro Heredia MD LAB - HEMATOLOGY OR DERABLES [facility] ACCOUNT BILL * C-REACTIVE PROTEIN (12/14/2008 5:54 PM CDT) C-Reactive Protein 1.6 0.0 - 4.9 mg/L [facility] ACCOUNT BILL BLOOD SPECIMEN / Unknown 12/14/2008 5:54 PM CDT 12/14/2008 9:29 PM CDT Narrative Resulting Agency Comment [facility] [address] ??[facility] [phone] Isidro Heredia MD LAB - CHEMISTRY ORD [...] CDT Narrative Resulting Agency Comment [facility] [address] ??[facility] [phone] Isidro Heredia MD LAB - CHEMISTRY ORD [...] RESULT NOT AVAILABLE Resulting Agency Comment [facility] [address] ??[facility] [phone] Isidro Heredia MD LAB - HEMATOLOGY OR DERABLES [facility] ACCOUNT BILL documented in this encounter Visit Diagnoses Diagnosis Rheumatoid arthritis(714.0) ([facility])- Primary Rheumatoid arthritis documented in this encounter Care Teams Cut Out Press Operator Relationship Specialty Start Date End Date Nolberto Nicole MD PCP - General 07/21/08 12/30/13 documented as of this encounter
--- OUTSIDE RECORDS SUMMARY | 2024-05-10 18:51 | XMS_ITS | Encounter Summary ---
Author Organization [facility] Address [address] [place] [address] [place] [address] Care Team Providers Care Manager Rental Name Role Phone Nolberto Nicole MD Primary Care Provider [phone] Reason for Visit * Reason Comments Follow-up RA Fatigue Encounter Details Date Type Department Care Team (Late st Contact Info) Description 11/14/2010 5:15 PM CDT Office Visit [facility] - Rheumatology [address] [place] [address] [phone] Isidro Heredia MD [address] [place] [address] Rheumatoid arthritis (HCC) (Primary Dx); Triceps [...] Contact Info) Description 06/03/2024 1:00 PM MILLWRIGHT APPRENTICE Appointment [facility] - Rheumatology [address] [place] [address] 06/03/2024 2:00 PM MILLWRIGHT APPRENTICE Office Visit [facility] - Rheumatology [address] [place] [address] [place] [address] Gloria Smith MD [address] [place] [address] [phone] documented as of this encounter Procedures Procedure [...] CDT Narrative Resulting Agency Comment [facility] [place] [employer] [facility] ??[facility] [phone] Isidro Heredia MD LAB - HEMATOLOGY OR DERABLES [facility] ACCOUNT BILL * (ABNORMAL) C-REACTIVE PROTEIN (11/14/2010 5:52 PM CDT) C-Reactive Protein 7.9(H) 0.0 - 4.9 mg/L [facility] ACCOUNT BILL BLOOD SPECIMEN / Unknown 11/14/2010 5:52 PM CDT 11/14/2010 8:52 PM CDT Narrative Resulting Agency Comment [facility] [place] [facility] [facility] ??[facility] [phone] Isidro Heredia MD LAB - CHEMISTRY ORD [...] PM CDT Narrative Resulting Agency Comment [facility] [place] [address] [facility] ??[facility] [phone] Isidro Heredia MD LAB - CHEMISTRY ORD [...] CDT Narrative Resulting Agency Comment [facility] [address] ??[facility] [phone] Isidro Heredia MD LAB - HEMATOLOGY OR DERABLES [facility] ACCOUNT BILL documented in this encounter Visit Diagnoses Diagnosis Rheumatoid arthritis(714.0) (HCC)- Primary Rheumatoid arthritis Triceps tendonitis Other enthesopathy of elbow region documented in this encounter Care Teams Manager Rental Relationship Specialty Start Date End Date Nolberto Nicole MD PCP - General 07/21/08 12/30/13 documented as of this encounter
--- OUTSIDE RECORDS SUMMARY | 2024-05-10 18:51 | XMS_ITS | Encounter Summary ---
Author Organization [facility] Address [address] [place] [address] Care Team Providers Care Certified Dental Assistant Name Role Phone Nolberto Nicole MD Primary Care Provider [phone] Encounter Details Date Type Department Care Team (Late Contact Info) Description 06/07/2009 Orders Only [facility] - Rheumatology [address] [place] [address] Isidro Heredia MD [address] [place] [address] Social History Tobacco Use Types Packs/Day [...] Contact Info) Description 06/03/2024 1:00 PM LOGISTICS ANALYST Appointment [facility] - Rheumatology [address] [place] [address] 06/03/2024 2:00 PM LOGISTICS ANALYST Office Visit [facility] - Rheumatology [address] [place] [address] Gloria Smith MD [address] [place] [phone] documented as of this encounter Procedures Procedure Name Priority Date/Time Associated Diagnosis Comments C-REACTIVE PROTEIN 06/07/2009 5: 41 PM LOGISTICS ANALYST ERYTHROCYTE SEDIMENTATION RATE 06/07/2009 5:41 PM LOGISTICS ANALYST documented in this encounter Results * C-REACTIVE PROTEIN (06/07/2009 5:41 PM LOGISTICS ANALYST) C-Reactive Protein 2.0 0.0 - 4.9 mg/L [facility] ACCOUNT BILL 06/07/2009 5:41 PM LOGISTICS ANALYST 06/07/2009 9:20 PM LOGISTICS ANALYST Narrative Resulting Agency Comment [facility] [place] [id number] ??[facility] access hospital [phone] Isidro Heredia MD LAB - CHEMISTRY ORD ERABLES Performing Organization Address City/[facility]/ZIP Co de Phone Number [facility] ACCOUNT BILL * SED RATE WESTERGREN AUTO (06/07/2009 5:41 PM LOGISTICS ANALYST) Erythrocyte Sedimentation Rate Westergren 10 0 - 15 mm/hr [facility] ACCOUNT BILL 06/07/2009 5:41 PM LOGISTICS ANALYST 06/07/2009 9:20 PM LOGISTICS ANALYST Narrative Resulting Agency Comment [facility] [place] [address] [facility] ??Critical access hospital [phone] Isidro Heredia MD LAB - HEMATOLOGY OR DERABLES [facility] ACCOUNT BILL documented in this encounter Visit Diagnoses Not on filedocumented in this encounter Care Teams Certified Dental Assistant Relationship Specialty Start Date End Date Nolberto Nicole MD PCP - General 07/21/08 12/30/13 documented as of this encounter
--- OUTSIDE RECORDS SUMMARY | 2024-05-10 18:51 | XMS_ITS | Encounter Summary ---
Author Organization [facility] Address [address] [facility] [place] [address] Care Team Providers Care Leather Belt Shaper Name Role Phone Nolberto Nicole MD Primary Care Provider Reason for Visit * Reason Comments Swelling Hand with white spots on palm of obdulia hands Pain legs,knees, rt foot especially the big toe Pain Back low General request handicap car d Encounter Details Date Type Department Care Team (Late st Contact Info) Description 12/13/2009 5:30 PM CDT Office Visit [facility] - Rheumatology [address] [place] [address] Isidro Heredia MD [address] [place] [address] Rheumatoid Arthritis (HCC) (Primary Dx) Social [...] Progress Notes * Rea Haagn MA - 12/22/2009 10:58 AM CDTQuick Note: [...] doing fair On vacation last week in [place] Pain Level: 7/10 Am stiffness 2 hrs [...] st Contact Info) Description 06/03/2024 1:00 PM GRID MAKER Appointment [facility] - Rheumatology [address] [place] [address] 06/03/2024 2:00 PM GRID MAKER Office Visit [facility] - Rheumatology [address] [place] [address] [phone] Gloria Smith MD [address] [place] [phone] documented as of this encounter Procedures Procedure [...] PM CDT Narrative Resulting Agency Comment [facility] [place] [address] ??[facility]ly [facility] [phone] Isidro Heredia MD LAB - HEMATOLOGY OR DERABLES Performing Organization Address [facility] Co de Phone Number [facility] ACCOUNT BILL * RHEUMATOID FACTOR BLOOD QUANTITATIVE (12/13/2009 7:02 PM CDT) Rheumatoid Factor 8.3 0.0 - 13.9 IU/mL [facility] ACCOUNT BILL BLOOD SPECIMEN / Unknown 12/13/2009 7:02 PM CDT 12/13/2009 10:40 PM CDT Narrative Resulting Agency Comment [facility] [address] ??[facility] [phone] Isidro Heredia MD LAB - CHEMISTRY ORD ERABLES Performing Organization Address City/[facility]/ZIP [...] CDT Narrative Resulting Agency Comment [facility] [address] ??[facility] [phone] Isidro Heredia MD LAB - SEROLOGY MARII ARAUJO Performing Organization Address [facility] Co de Phone Number [facility] ACCOUNT BILL * C-REACTIVE PROTEIN (12/13/2009 7:02 PM CDT) C-Reactive Protein 2.3 0.0 - 4.9 mg/L [facility] ACCOUNT BILL BLOOD SPECIMEN / Unknown 12/13/2009 7:02 PM CDT 12/13/2009 10:40 PM CDT Narrative Resulting Agency Comment [facility] [address] ??[facility]ly [facility] [phone] Isidro Heredia MD LAB - CHEMISTRY CALEB FIELDS Performing Organization Address City/[facility]/ZIP [...] PM CDT Narrative Resulting Agency Comment [facility] [address] ??[facility]ly [facility] [phone] Isidro Heredia MD LAB - CHEMISTRY ORD [...] PM CDT Narrative Resulting Agency Comment [facility] [address] ??[facility]ly [facility] [phone] Isidro Heredia MD LAB - HEMATOLOGY OR DERABLES [facility] ACCOUNT BILL documented in this encounter Visit Diagnoses Diagnosis Rheumatoid arthritis(714.0) (HCC)- Primary Rheumatoid arthritis documented in this encounter Care Teams Leather Belt Shaper Relationship Specialty Start Date End Date Nolberto Nicole MD PCP - General 07/21/08 12/30/13 documented as of this encounter
--- OUTSIDE RECORDS SUMMARY | 2024-05-10 18:51 | XMS_ITS | Encounter Summary ---
Author Organization [facility] Address [address] [place] [address] Care Team Providers Care Admitting Counselor Name Role Phone Nolberto Nicole MD Primary Care Provider [phone] Encounter Details Date Type Department Care Team (Late Contact Info) Description 03/08/2009 Orders Only [facility] - Rheumatology [address] [place] [address] Isidro Heredia MD [address] [place] [address] [phone] Social History Tobacco Use Types Packs/Day Years [...] 03/14/2009 6:31 PM CSTQuick Note: Bs 104 UNT INSTALLATION SPECIALIST documented in this encounter Plan of Treatment Upcoming Encounters Date Type Department Care Team (Late Contact Info) Description 06/03/2024 1:00 PM ACCOUNT INSTALLATION SPECIALIST Appointment [facility] - Rheumatology [address] [place] [address] [phone] 06/03/2024 2:00 PM ACCOUNT INSTALLATION SPECIALIST Office Visit [facility] - Rheumatology [address] [place] [address] [phone] Gloria Smith MD [address] [place] [phone] documented as of this encounter Procedures Procedure Name Priority Date/Time Associated Diagnosis Comments CBC W AUTO DIFFERENTIAL 03/08/2009 4:28 PM ACCOUNT INSTALLATION SPECIALIST COMPREHENSIVE METABOLIC PANEL 03/08/2009 4:28 PM ACCOUNT INSTALLATION SPECIALIST documented in this encounter Results * (ABNORMAL) COMPREHENSIVE METABOLIC PANEL (03/08/2009 4:28 PM ACCOUNT INSTALLATION SPECIALIST) Glucose 104(H) 65 - 99 mg/dL [facility] [...] IU/L [facility] ACCOUNT BILL 03/08/2009 4:28 PM ACCOUNT INSTALLATION SPECIALIST 03/08/2009 9:28 PM ACCOUNT INSTALLATION SPECIALIST Narrative Resulting Agency Comment [facility] [address] ??[facility] [phone] Isidro Heredia MD LAB - CHEMISTRY ORD ERABLES [facility] ACCOUNT BILL * (ABNORMAL) CBC W AUTO DIFFERENTIAL (03/08/2009 4:28 PM ACCOUNT INSTALLATION SPECIALIST) WBC 8.8 4.0 - 10.5 x10E3/uL [facility] [...] AVAIL. [facility] ACCOUNT BILL 03/08/2009 4:28 PM ACCOUNT INSTALLATION SPECIALIST 03/08/2009 9:28 PM ACCOUNT INSTALLATION SPECIALIST Narrative [facility] ACCOUNT BILL - 03/09/2009 6:12 AM ACCOUNT INSTALLATION SPECIALIST Additional Result Information HEMATOLOGY COMMENTS: ??BLOOD,URINE ([facility]): RESULT NOT AVAILABLE Resulting Agency Comment [facility] [address] ??[facility] [phone] Isidro Heredia MD LAB - HEMATOLOGY OR DERABLES [facility] ACCOUNT BILL documented in this encounter Visit Diagnoses Not on filedocumented in this encounter Care Teams Admitting Counselor Relationship Specialty Start Date End Date Nolberto Nicole MD PCP - General 07/21/08 12/30/13 documented as of this encounter
--- OUTSIDE RECORDS SUMMARY | 2024-05-10 18:51 | XMS_ITS | Encounter Summary ---
Author Organization [facility] Address [address] [place] [address] [place] [address] Care Team Providers Care Ocean Transportation Intermediary Name Role Phone Nolberto Nicole MD Primary Care Provider [phone] Reason for Visit * Reason Comments Follow-up ra Cramps obdulia legs at Encounter Details Date Type Department Care Team (Late st Contact Info) Description 05/05/2009 2:15 PM JEWELRY COATER Office Visit [facility] - Rheumatology [address] [place] [address] [phone] Isidro Heredia MD [address] [place] [address] Rheumatoid Arthritis (HCC) (Primary Dx); Osteopenia [...] Comments Blood Pressure 116/90 05/05/2009 2:25 PM JEWELRY COATER Pulse 88 05/05/2009 2:25 PM JEWELRY COATER Temperature - - Respiratory Rate - - Oxygen Saturation - - Inhaled Oxygen Concentration - - Weight 109.3 kg (241 lb) 05/05/2009 2:25 PM JEWELRY COATER Height - - Body Mass Index 34.58 02/08/2009 5:43 PM CDT documented in this encounter Progress Notes * Rea Hagan MA - 05/10/2009 11:23 AM CSTSamantha Note: Sent lab letter of 05/05/09 to pt LRY COATER * Isidro Heredia MD - 05/08/2009 9:37 PM CSTQurolando Note: Mtx ok LRY COATER * Isidro Heredia MD - 05/05/2009 2:50 [...] Follow up in office in 4 weeks LRY COATER * Rea Hagan MA - 05/05/2009 2:25 PM CST Chief Complaint Patient presents with ??? Follow-up ra ??? Cramps obdulia legs at hs BP 116/90 Pulse 88 Wt 109.317 kg (241 lb) LRY COATER documented in this encounter Plan of Treatment Upcoming Encounters Date Type Department Care Team (Late st Contact Info) Description 06/03/2024 1:00 PM JEWELRY COATER Appointment [facility] - Rheumatology [address] [place] [address] [phone] 06/03/2024 2:00 PM JEWELRY COATER Office Visit [facility] - Rheumatology [address] [place] [address] Gloria Smith MD [address] [place] [phone] documented as of this encounter Procedures Procedure Name Priority Date/Time Associated Diagnosis Comments C-REACTIVE PROTEIN Routine 05/05/2009 2: 34 PM JEWELRY COATER Rheumatoid Arthritis (HCC) ERYTHROCYTE SEDIMENTATION RATE Routine 05/05/2009 2:34 PM JEWELRY COATER Rheumatoid Arthritis (HCC) CBC W AUTO DIFFERENTIAL Routine 05/05/2009 2:34 PM JEWELRY COATER Rheumatoid Arthritis (HCC) COMPREHENSIVE METABOLIC PANEL Routine 05/05/2009 2:34 PM JEWELRY COATER Rheumatoid Arthritis (HCC) documented in this encounter Results * SED RATE WESTERGREN AUTO (05/05/2009 2:34 PM JEWELRY COATER) Erythrocyte Sedimentation Rate Westergren 9 0 - 15 mm/hr [facility] ACCOUNT BILL BLOOD SPECIMEN / Unknown 05/05/2009 2:34 PM JEWELRY COATER 05/05/2009 9:39 PM JEWELRY COATER Narrative Resulting Agency Comment [facility] [address] ??[facility]ly [facility] [phone] Isidro Heredia MD LAB - HEMATOLOGY OR DERABLES [facility] ACCOUNT BILL * COMPREHENSIVE METABOLIC PANEL (05/05/2009 2:34 PM JEWELRY COATER) Glucose 86 65 - 99 mg/dL [facility] [...] BLOOD SPECIMEN / Unknown 05/05/2009 2:34 PM JEWELRY COATER 05/05/2009 9:39 PM JEWELRY COATER Narrative Resulting Agency Comment [facility] [address] ??[facility]ly [facility] [phone] Isidro Heredia MD LAB - CHEMISTRY ORD ERABLES [facility] ACCOUNT BILL * C-REACTIVE PROTEIN (05/05/2009 2:34 PM JEWELRY COATER) C-Reactive Protein 3.8 0.0 - 4.9 mg/L [facility] ACCOUNT BILL BLOOD SPECIMEN / Unknown 05/05/2009 2:34 PM JEWELRY COATER 05/05/2009 9:39 PM JEWELRY COATER Narrative Resulting Agency Comment [facility] [address] ??[facility]ly [facility] [phone] Isidro Heredia MD LAB - CHEMISTRY ORD ERABLES [facility] ACCOUNT BILL * (ABNORMAL) CBC W AUTO DIFFERENTIAL (05/05/2009 2:34 PM JEWELRY COATER) Pathologist [facility] WBC 8.2 4.0 - 10.5 x10E3/uL [facility] [...] BLOOD SPECIMEN / Unknown 05/05/2009 2:34 PM JEWELRY COATER 05/05/2009 9:39 PM JEWELRY COATER Narrative [facility] ACCOUNT BILL - 05/06/2009 7:23 AM JEWELRY COATER Additional Result Information IMMATURE CELLS ([facility]): RESULT NOT AVAILABLE IMMATURE GRANULOCYTES ([facility]): RESULT NOT AVAILABLE IMMATURE GRANS (ABS) ([facility]): RESULT NOT AVAILABLE NRBC ([facility]): RESULT NOT AVAILABLE HEMATOLOGY COMMENTS: ??BLOOD,URINE ([facility]): RESULT NOT AVAILABLE Resulting Agency Comment [facility] [address] ??[facility]ly [facility] [phone] Isidro Heredia MD LAB - HEMATOLOGY OR DERABLES [facility] ACCOUNT BILL documented in this encounter Visit Diagnoses Diagnosis Rheumatoid arthritis(714.0) ([facility])- Primary Rheumatoid arthritis Osteopenia Disorder of bone and cartilage, unspecified documented in this encounter Care Teams Ocean Transportation Intermediary Relationship Specialty Start Date End Date Nolberto Nicole MD PCP - General 07/21/08 12/30/13 documented as of this encounter
--- OUTSIDE RECORDS SUMMARY | 2024-05-10 18:51 | XMS_ITS | Encounter Summary ---
Author Organization [facility] Address [address] [place] [address] [place] [address] Care Team Providers Care Infant Nanny Name Role Phone Nolberto Nicole MD Primary Care Provider [phone] Reason for Visit * Reason Comments Rheumatoid Arthritis Encounter Details Date Type Department Care Team ([facility] Contact Info) Description 09/28/2008 Office Visit [facility] - Rheumatology [address] [place] [address] [phone] Isidro Heredia MD [address] [place], [place] [phone] Rheumatoid Arthritis (HCC) (Primary Dx) Social History [...] Upcoming Encounters Date Type Department Care Team ([facility] Contact Info) Description 06/03/2024 1:00 PM LEAD SPRINKLER Appointment [facility] - Rheumatology [address] [place] [phone] 06/03/2024 2:00 PM LEAD SPRINKLER Office Visit [facility] - Rheumatology [address] [place] [address] [phone] Gloria Smith MD [address] [place] [phone] documented as of this encounter Visit Diagnoses Diagnosis Rheumatoid arthritis(714.0) ([facility])- Primary Rheumatoid arthritis documented in this encounter Care Teams Infant Nanny Relationship Specialty Start Date End Date Nolberto Nicole MD PCP - General 07/21/08 12/30/13 documented as of this encounter
--- OUTSIDE RECORDS SUMMARY | 2024-05-10 18:51 | XMS_ITS | Encounter Summary ---
Author Organization [facility] Address [address] [facility] [place] [address] Care Team Providers Care Farm Technician Name Role Phone Nolberto Nicole MD Primary Care Provider [phone] Encounter Details Date Type Department Care Team (Late Contact Info) Description 08/02/2009 Orders Only [facility] - Rheumatology [address] [place] [address] [phone] Isidro Heredia MD [address] [place] [address] [phone] Social History Tobacco Use Types Packs/Day Years [...] st Contact Info) Description 06/03/2024 1:00 PM UNIVERSAL GRINDER SET UP OPERATOR Appointment [facility] - Rheumatology [address] [place] [phone] 06/03/2024 2:00 PM UNIVERSAL GRINDER SET UP OPERATOR Office Visit [facility] - Rheumatology [address] [place] [address] [phone] Gloria Smith MD [address] [place] [phone] documented as of this encounter Procedures [...] CDT Narrative Resulting Agency Comment [facility] [address] ??[facility] [id number] Isidro Heredia MD LAB - CHEMISTRY ORD [...] CDT Narrative Resulting Agency Comment [facility] [address] ??[facility] [phone] Isidro Heredia MD LAB - CHEMISTRY ORD [...] NOT AVAILABLE Resulting Agency Comment [facility] [address] ??[facility] [phone] Isidro Heredia MD LAB - HEMATOLOGY OR DERABLES [facility] ACCOUNT BILL documented in this encounter Visit Diagnoses Not on filedocumented in this encounter Care Teams Farm Technician Relationship Specialty Start Date End Date Nolberto Nicole MD PCP - General 07/21/08 12/30/13 documented as of this encounter
--- OUTSIDE RECORDS SUMMARY | 2024-05-10 18:51 | XMS_ITS | Encounter Summary ---
Author Organization [facility] Address [address] [facility] [address] Care Team Providers Care Archives Technician Name Role Phone Nolberto Nicole MD Primary Care Provider [phone] Reason for Visit * Reason Comments Shoulder Pain rt Pain Hand rt General went to [facility] for E coli. this is resolved, treated with antibx Encounter Details Date Type Department Care Team (Late st Contact Info) Description 04/18/2010 3:15 PM PLATE GLASS GRINDER Office Visit [facility] - Rheumatology [address] [place] [address] Isidro Heredia MD [address] [place] [phone] Rheumatoid arthritis (HCC) (Primary Dx) Social [...] Comments Blood Pressure 124/84 04/18/2010 4:17 PM PLATE GLASS GRINDER Pulse 80 04/18/2010 4:17 PM PLATE GLASS GRINDER Temperature - - Respiratory Rate - - Oxygen Saturation - - Inhaled Oxygen Concentration - - Weight 111.6 kg (246 lb) 04/18/2010 4:17 PM PLATE GLASS GRINDER Height - - Body Mass Index 35.3 02/08/2009 5:43 PM CDT documented in this encounter Progress Notes * Rea Hagan MA - 04/25/2010 6:50 PM CSTQuick Note: Sent lab letter to pt E GLASS GRINDER * Isidro Heredia MD - 04/23/2010 8:43 PM CSTQuick Note: mtx ok E GLASS GRINDER * Isidro Heredia MD - 04/18/2010 4:52 PM CST Subjective: Chalino Deng 49 y.o. male Chief Complaint Patient presents with ??? Shoulder Pain rt ??? Pain Hand rt ??? General went to [facility] for E coli. this is resolved, treated [...] Follow up in office in 4 mo E GLASS GRINDER * Rea Hagan MA - 04/18/2010 4:21 PM CST Chief Complaint Patient presents with ??? Shoulder Pain rt ??? Pain Hand rt ??? General went to [facility] for E coli. this is resolved, treated with antibx BP 124/84 Pulse 80 Wt 246 lb (111.585 kg) E GLASS GRINDER documented in this encounter Plan of Treatment Upcoming Encounters Date Type Department Care Team (Late st Contact Info) Description 06/03/2024 1:00 PM PLATE GLASS GRINDER Appointment [facility] - Rheumatology [address] [place] [phone] 06/03/2024 2:00 PM PLATE GLASS GRINDER Office Visit [facility] - Rheumatology [address] [place] [address] Gloria Smith MD [address] [place] [phone] documented as of this encounter Procedures Procedure Name Priority Date/Time Associated Diagnosis Comments C-REACTIVE PROTEIN Routine 04/18/2010 4: 46 PM PLATE GLASS GRINDER Rheumatoid arthritis (HCC) ERYTHROCYTE SEDIMENTATION RATE Routine 04/18/2010 4:46 PM PLATE GLASS GRINDER Rheumatoid arthritis (HCC) CBC W AUTO DIFFERENTIAL Routine 04/18/2010 4:46 PM PLATE GLASS GRINDER Rheumatoid arthritis (HCC) COMPREHENSIVE METABOLIC PANEL Routine 04/18/2010 4:46 PM PLATE GLASS GRINDER Rheumatoid arthritis (HCC) documented in this encounter Results * (ABNORMAL) SED RATE WESTERGREN AUTO (04/18/2010 4:46 PM PLATE GLASS GRINDER) Erythrocyte Sedimentation Rate Westergren 19(H) 0 - 15 mm/hr [facility] ACCOUNT BILL BLOOD SPECIMEN / Unknown 04/18/2010 4:46 PM PLATE GLASS GRINDER 04/18/2010 10:29 PM PLATE GLASS GRINDER Narrative Resulting Agency Comment [facility] [place] [address] ??[facility] [phone] Isidro Heredia MD LAB - HEMATOLOGY OR DERABLES [facility] ACCOUNT BILL * C-REACTIVE PROTEIN (04/18/2010 4:46 PM PLATE GLASS GRINDER) C-Reactive Protein 4.5 0.0 - 4.9 mg/L [facility] ACCOUNT BILL BLOOD SPECIMEN / Unknown 04/18/2010 4:46 PM PLATE GLASS GRINDER 04/18/2010 10:29 PM PLATE GLASS GRINDER Narrative Resulting Agency Comment [facility] [place] [address] ??[place] [phone] Isidro Heredia MD LAB - CHEMISTRY ORD ERABLES Performing Organization Address City/[facility] Co de Phone Number [facility] ACCOUNT BILL * (ABNORMAL) COMPREHENSIVE METABOLIC PANEL (04/18/2010 4:46 PM PLATE GLASS GRINDER) Glucose 105(H) 65 - 99 mg/dL [facility] [...] BLOOD SPECIMEN / Unknown 04/18/2010 4:46 PM PLATE GLASS GRINDER 04/18/2010 10:29 PM PLATE GLASS GRINDER Narrative Resulting Agency Comment [facility] [place] [address] [facility] ??[facility] [phone] Isidro Heredia MD LAB - CHEMISTRY ORD ERABLES [facility] ACCOUNT BILL * CBC W AUTO DIFFERENTIAL (04/18/2010 4:46 PM PLATE GLASS GRINDER) WBC 9.9 4.0 - 10.5 x10E3/uL [facility] [...] BLOOD SPECIMEN / Unknown 04/18/2010 4:46 PM PLATE GLASS GRINDER 04/18/2010 10:29 PM PLATE GLASS GRINDER Narrative Resulting Agency Comment [facility] [place] [address] [facility] ??[facility] [phone] Isidro Heredia MD LAB - HEMATOLOGY OR DERABLES [facility] ACCOUNT BILL documented in this encounter Visit Diagnoses Diagnosis Rheumatoid arthritis(714.0) ([facility])- Primary Rheumatoid arthritis documented in this encounter Care Teams Archives Technician Relationship Specialty Start Date End Date Nolberto Nicole MD PCP - General 07/21/08 12/30/13 documented as of this encounter
--- OUTSIDE RECORDS SUMMARY | 2024-05-10 18:51 | XMS_ITS | Encounter Summary ---
Author Organization [facility] Address [address] [place] [address] [place] [address] Care Team Providers Care Manager Med Surg Name Role Phone Nolberto Nicole MD Primary Care Provider [phone] Reason for Visit * Reason Comments Follow-up ra Fatigue Encounter Details Date Type Department Care Team (Late st Contact Info) Description 02/08/2009 5:00 PM CDT Office Visit [facility] - Rheumatology [address] [place] [address] [phone] Isidro Heredia MD [address] [place] [address] [phone] Rheumatoid Arthritis (HCC) (Primary Dx); Bursitis, Subacromial/Subdelt [...] Contact Info) Description 06/03/2024 1:00 PM PERSONNEL SECURITY ASSISTANT Appointment [facility] - Rheumatology [address] [place] [phone] 06/03/2024 2:00 PM PERSONNEL SECURITY ASSISTANT Office Visit [facility] - Rheumatology [address] [place] [address] Gloria Smith MD [address] [place] [address] [place] [phone] Scheduled Orders Name Type Priority Associated Diagnoses Orde r Schedule CBC W AUTO DIFFERENTIAL Lab Routine Rheumatoid Arthritis ([facility]) Ordered: 02/08/2009 COMPREHENSIVE METABOLIC PANEL Lab Routine Rheumatoid Arthritis ([facility]) Ordered: 02/08/2009 C-REACTIVE PROTEIN Lab Routine Rheumatoid Arthritis ([facility]) Ordered: 02/08/2009 documented as of this encounter Procedures Procedure Name Priority Date/Time Associated Diagnosis Comments ERYTHROCYTE SEDIMENTATION RATE Routine 02/08/2009 6:07 PM CDT Rheumatoid Arthritis ([facility]) documented in this encounter Results * SED RATE WESTERGREN AUTO (02/08/2009 6:07 PM CDT) Erythrocyte Sedimentation Rate Westergren 7 0 - 15 mm/hr [facility] ACCOUNT BILL BLOOD SPECIMEN / Unknown 02/08/2009 6:07 PM CDT 02/08/2009 9:30 PM CDT Narrative Resulting Agency Comment [facility] [address] ??[facility]ly [facility] [phone] Isidro Heredia MD LAB - HEMATOLOGY OR DERABLES [facility] ACCOUNT BILL documented in this encounter Visit Diagnoses Diagnosis Rheumatoid arthritis(714.0) ([facility])- Primary Rheumatoid arthritis Bursitis, subacromial/subdeltoid Other specified disorders of rotator cuff syndrome of shoulder and allied disorders documented in this encounter Care Teams Manager Med Surg Relationship Specialty Start Date End Date Nolberto Nicole MD PCP - General 07/21/08 12/30/13 documented as of this encounter
--- OUTSIDE RECORDS SUMMARY | 2024-05-10 18:51 | XMS_ITS | Encounter Summary ---
Author Organization [facility] Address [address] [place] [address] [place] [address] Care Team Providers Care Orchid Superintendent Name Role Phone Nolberto Nicole MD Primary Care Provider [phone] Reason for Visit * Reason Onset Date Comments MEDICATION REFILL 10/26/2009 Encounter Details Date Type Department Care Team (Late st Contact Info) Description 10/26/2009 Refill [facility] Medical [facility] - Rheumatology [address] [place] [address] [phone] Isidro Heredia MD [address] [place] [address] [phone] MEDICATION REFILL Social History Tobacco Use Types [...] Contact Info) Description 06/03/2024 1:00 PM PROTOTYPE MACHINE OPERATOR Appointment [facility] - Rheumatology [address] [place] [address] 06/03/2024 2:00 PM PROTOTYPE MACHINE OPERATOR Office Visit [facility] - Rheumatology [address] [place] [address] Gloria Smith MD [address] [place] [phone] documented as of this encounter Visit Diagnoses Not on filedocumented in this encounter Care Teams Orchid Superintendent Relationship Specialty Start Date End Date Nolberto Nicole MD PCP - General 07/21/08 12/30/13 documented as of this encounter
--- OUTSIDE RECORDS SUMMARY | 2024-05-10 18:51 | XMS_ITS | Encounter Summary ---
Author Organization [facility] Address [address] [facility] [place] [address] Care Team Providers Care Drum Cleaner Name Role Phone Nolberto Nicole MD Primary Care Provider [phone] Reason for Visit * Reason Comments Follow-up ra General pt has cloudy vision stop plaquenil. Fatigue Pain Muscle Encounter Details Date Type Department Care Team (Late st Contact Info) Description 08/02/2009 5:15 PM CDT Office Visit [facility] - Rheumatology [address] [place] [address] [phone] Isidro Heredia MD [address] [place] [phone] Rheumatoid Arthritis (HCC) (Primary Dx); Osteopenia [...] Contact Info) Description 06/03/2024 1:00 PM WEB CONTENT WRITER Appointment [facility] - Rheumatology [address] [place] [address] [phone] 06/03/2024 2:00 PM WEB CONTENT WRITER Office Visit [facility] - Rheumatology [address] [place] [address] [phone] Gloria Smith MD [address] [place] [phone] Scheduled Orders Name Type Priority Associated Diagnoses Orde r Schedule CBC W AUTO DIFFERENTIAL Lab Routine Rheumatoid Arthritis ([facility]) Ordered: 08/02/2009 COMPREHENSIVE METABOLIC PANEL Lab Routine Rheumatoid Arthritis ([facility]) Ordered: 08/02/2009 C-REACTIVE PROTEIN Lab Routine Rheumatoid Arthritis ([facility]) Ordered: 08/02/2009 documented as of this encounter Procedures Procedure Name Priority Date/Time Associated Diagnosis Comments ERYTHROCYTE SEDIMENTATION RATE Routine 08/02/2009 5:24 PM CDT Rheumatoid Arthritis ([facility]) documented in this encounter Results * SED RATE WESTERGREN AUTO (08/02/2009 5:24 PM CDT) Erythrocyte Sedimentation Rate Westergren 11 0 - 15 mm/hr [facility] ACCOUNT BILL BLOOD SPECIMEN / Unknown 08/02/2009 5:24 PM CDT 08/02/2009 9:21 PM CDT Narrative Resulting Agency Comment [facility] [address] ??[facility] [phone] Isidro Heredia MD LAB - HEMATOLOGY OR DERABLES [facility] ACCOUNT BILL documented in this encounter Visit Diagnoses Diagnosis Rheumatoid arthritis(714.0) (HCC)- Primary Rheumatoid arthritis Osteopenia Disorder of bone and cartilage, unspecified documented in this encounter Care Teams Drum Cleaner Relationship Specialty Start Date End Date Nolberto Nicole MD PCP - General 07/21/08 12/30/13 documented as of this encounter
--- OUTSIDE RECORDS SUMMARY | 2024-05-10 18:51 | XMS_ITS | Encounter Summary ---
Author Organization [facility] Address [address] [facility] [place] [address] Care Team Providers Care Nutrition Aide Name Role Phone Nolberto Nicole MD Primary Care Provider Isidro Heredia MD Unavailable [phone] Reason for Visit * Reason Comments Follow-up ra Stiff Hand obdulia Encounter Details Date Type Department Care Team (Late st Contact Info) Description 03/20/2011 4:45 PM TRACTOR SWEEPER DRIVER Office Visit [facility] - Rheumatology [address] [place] [address] Isidro Heredia MD [address] [place] [phone] Rheumatoid arthritis (HCC) (Primary Dx); Triceps [...] Comments Blood Pressure 120/80 03/20/2011 5:10 PM TRACTOR SWEEPER DRIVER Pulse 76 03/20/2011 5:10 PM TRACTOR SWEEPER DRIVER Temperature - - Respiratory Rate - - Oxygen Saturation - - Inhaled Oxygen Concentration - - Weight 108.9 kg (240 lb) 03/20/2011 5:10 PM TRACTOR SWEEPER DRIVER Height - - Body Mass Index 34.44 02/08/2009 5:43 PM CDT documented in this encounter Progress Notes * Isidro Heredia MD - 03/26/2011 5:36 PM CSTQuick Note: mtx ok See if we requested his old records TOR SWEEPER DRIVER * Isidro Heredia MD - 03/20/2011 5:10 [...] PO) Take by mouth once daily. ??? Vdpxeskeksv-Gnhiakgno-Ihs C-Mn (GLUCOSAMINE CHONDR 1500 COMPLX PO) Take [...] Get old records to verify previous biologics TOR SWEEPER DRIVER * Bentley Rea YouJED Thibodeaux - 03/20/2011 5:10 PM CST Chief Complaint Patient presents with ??? Follow-up ra ??? Stiff Hand obdulia BP 120/80 Pulse 76 Wt 240 lb (108.863 kg) TOR SWEEPER DRIVER documented in this encounter Plan of Treatment Upcoming Encounters Date Type Department Care Team (Late st Contact Info) Description 06/03/2024 1:00 PM TRACTOR SWEEPER DRIVER Appointment [facility] - Rheumatology [address] [place] [address] 06/03/2024 2:00 PM TRACTOR SWEEPER DRIVER Office Visit [facility] - Rheumatology [address] [place] [address] Gloria Smith MD [address] [place] [phone] Scheduled Orders Name Type Priority Associated Diagnoses Orde r Schedule CBC W AUTO DIFFERENTIAL Lab Routine Rheumatoid arthritis ([facility]) Ordered: 03/20/2011 COMPREHENSIVE METABOLIC PANEL Lab Routine Rheumatoid arthritis ([facility]) Ordered: 03/20/2011 C-REACTIVE PROTEIN Lab Routine Rheumatoid arthritis ([facility]) Ordered: 03/20/2011 SED RATE WESTERGREN AUTO Lab Routine Rheumatoid arthritis (HCC) Ordered: 03/20/2011 documented as of this encounter Procedures Procedure Name Priority Date/Time Associated Diagnosis Comments C-REACTIVE PROTEIN Routine 03/20/2011 5: 07 PM TRACTOR SWEEPER DRIVER Rheumatoid arthritis (HCC) ERYTHROCYTE SEDIMENTATION RATE Routine 03/20/2011 5:07 PM TRACTOR SWEEPER DRIVER Rheumatoid arthritis (HCC) CBC W AUTO DIFFERENTIAL Routine 03/20/2011 5:07 PM TRACTOR SWEEPER DRIVER Rheumatoid arthritis (HCC) COMPREHENSIVE METABOLIC PANEL Routine 03/20/2011 5:07 PM TRACTOR SWEEPER DRIVER Rheumatoid arthritis (HCC) documented in this encounter Results * SED RATE WESTERGREN AUTO (03/20/2011 5:07 PM TRACTOR SWEEPER DRIVER) Erythrocyte Sedimentation Rate Westergren 11 0 - 23 mm/hr [facility] ACCOUNT BILL Blood specimen (specimen) BLOOD SPECIMEN / Unknown 03/20/2011 5:07 PM TRACTOR SWEEPER DRIVER 03/20/2011 9:58 PM TRACTOR SWEEPER DRIVER Narrative Resulting Agency Comment [facility] ??[facility] [phone] Isidro Heredia MD LAB - HEMATOLOGY OR DERABLES [facility] ACCOUNT BILL * C-REACTIVE PROTEIN (03/20/2011 5:07 PM TRACTOR SWEEPER DRIVER) C-Reactive Protein 1.6 0.0 - 4.9 mg/L [facility] ACCOUNT BILL Blood specimen (specimen) BLOOD SPECIMEN / Unknown 03/20/2011 5:07 PM TRACTOR SWEEPER DRIVER 03/20/2011 9:58 PM TRACTOR SWEEPER DRIVER Narrative Resulting Agency Comment [facility] ??[facility] [phone] Isidro Heredia MD LAB - CHEMISTRY ORD ERABLES [facility] ACCOUNT BILL * COMPREHENSIVE METABOLIC PANEL (03/20/2011 5:07 PM TRACTOR SWEEPER DRIVER) Glucose 97 65 - 99 mg/dL [facility] [...] BLOOD SPECIMEN / Unknown 03/20/2011 5:07 PM TRACTOR SWEEPER DRIVER 03/20/2011 9:58 PM TRACTOR SWEEPER DRIVER Narrative Resulting Agency Comment [facility] [address] ??[facility] [phone] Isidro Heredia MD LAB - CHEMISTRY ORD ERABLES [facility] ACCOUNT BILL * (ABNORMAL) CBC W AUTO DIFFERENTIAL (03/20/2011 5:07 PM TRACTOR SWEEPER DRIVER) WBC 8.2 4.0 - 10.5 x10E3/uL [facility] [...] BLOOD SPECIMEN / Unknown 03/20/2011 5:07 PM TRACTOR SWEEPER DRIVER 03/20/2011 9:58 PM TRACTOR SWEEPER DRIVER Narrative Resulting Agency Comment [facility] [address] ??[facility] [phone] Isidro Heredia MD LAB - HEMATOLOGY OR DERABLES Performing Organization Address City/State/[facility] Co de Phone Number [facility] ACCOUNT BILL documented in this encounter Visit Diagnoses Diagnosis Rheumatoid arthritis(714.0) ([facility])- Primary Rheumatoid arthritis Triceps tendonitis Other enthesopathy of elbow region documented in this encounter Care Teams Nutrition Aide Relationship Specialty Start Date End Date Nolberto Nicole MD PCP - General 07/21/08 12/30/13 Isidro Heredia MD Rheumatology 02/09/11 documented as of this encounter
--- OUTSIDE RECORDS SUMMARY | 2024-05-10 18:51 | XMS_ITS | Encounter Summary ---
Author Organization [facility] Address [address] [facility] [place] [address] Care Team Providers Care Paper Core Machine Operator Name Role Phone Nolberto Nicole MD Primary Care Provider [phone] Encounter Details Date Type Department Care Team (Late Contact Info) Description 01/11/2009 Orders Only [facility] - Rheumatology [address] [place] [address] [phone] Isidro Heredia MD [address] [place] [address] [phone] Social History Tobacco Use Types Packs/Day Years [...] Contact Info) Description 06/03/2024 1:00 PM COOK MANAGER Appointment [facility] - Rheumatology [address] [place] [address] [phone] 06/03/2024 2:00 PM COOK MANAGER Office Visit [facility] - Rheumatology [address] [place] [phone] Gloria Smith MD [address] [place] [phone] documented as of this encounter Procedures [...] Narrative Resulting Agency Comment [facility] [place] [phone] [facility] ??[facility] [phone] Isidro Heredia MD LAB - CHEMISTRY ORD ERABLES [facility] ACCOUNT BILL documented in this encounter Visit Diagnoses Not on filedocumented in this encounter Care Teams Paper Core Machine Operator Relationship Specialty Start Date End Date Nolberto Nicole MD PCP - General 07/21/08 12/30/13 documented as of this encounter
--- OUTSIDE RECORDS SUMMARY | 2024-05-10 18:51 | XMS_ITS | Encounter Summary ---
Author Organization [facility] Address [address] [place] [address] [place] [address] Care Team Providers Care Bow Rehairer Name Role Phone Nolberto Nicole MD Primary Care Provider [phone] Reason for Visit * Reason Comments Follow-up ra Encounter Details Date Type Department Care Team (Late st Contact Info) Description 06/07/2009 5:15 PM CMM OPERATOR Office Visit [facility] - Rheumatology [address] [place] [address] [phone] Isidro Heredia MD [address] [place], [place] [phone] Rheumatoid Arthritis (HCC) (Primary Dx) Social History [...] Comments Blood Pressure 126/76 06/07/2009 5:18 PM CMM OPERATOR Pulse 80 06/07/2009 5:18 PM CMM OPERATOR Temperature - - Respiratory Rate - - Oxygen Saturation - - Inhaled Oxygen Concentration - - Weight 109.8 kg (242 lb) 06/07/2009 5:18 PM CMM OPERATOR Height - - Body Mass Index 34.72 02/08/2009 5:43 PM CDT documented in this encounter Progress Notes * Isidro Heredia MD - 07/07/2009 9:09 PM CSTQuick Note: Mtx ok OPERATOR * Isidro Heredia MD - 06/07/2009 5:58 [...] in office in 4 weeks Same meds OPERATOR * Rea Hagan MA - 06/07/2009 5:18 PM CST Chief Complaint Patient presents with ??? Follow-up ra BP 126/76 Pulse 80 Wt 109.77 kg (242 lb) OPERATOR documented in this encounter Miscellaneous Notes * Letter - Isidro Heredia MD - 08/13/2009 4:50 PM CDT June 07, 2009 RE: CHALINO CASEY : 1960 Nolberto Nicole MD [address] [place] [address] Nicole: This is a 48-year-old [...] Electronically Signed 08/13/2009 16:36:42 CDT DSR/MedQ #: [id number] documented in this encounter Plan of Treatment Upcoming Encounters Date Type Department Care Team (Late st Contact Info) Description 06/03/2024 1:00 PM CMM OPERATOR Appointment [facility] Medical [facility] - Rheumatology [address] [place] [address] 06/03/2024 2:00 PM CMM OPERATOR Office Visit [facility] Medical [facility] - Rheumatology [address] [place] [address] Gloria Smith MD [address] [place] [phone] Scheduled Orders Name Type Priority Associated Diagnoses Orde r Schedule SED RATE WESTERGREN AUTO Lab Routine Rheumatoid Arthritis (HCC) Ordered: 06/07/2009 documented as of this encounter Procedures Procedure Name Priority Date/Time Associated Diagnosis Comments C-REACTIVE PROTEIN Routine 07/05/2009 6: 00 PM CMM OPERATOR Rheumatoid Arthritis (HCC) CBC W AUTO DIFFERENTIAL Routine 07/05/2009 6:00 PM CMM OPERATOR Rheumatoid Arthritis (HCC) COMPREHENSIVE METABOLIC PANEL Routine 07/05/2009 6:00 PM CMM OPERATOR Rheumatoid Arthritis (HCC) documented in this encounter Results * (ABNORMAL) C-REACTIVE PROTEIN (07/05/2009 6:00 PM CMM OPERATOR) C-Reactive Protein 5.7(H) 0.0 - 4.9 mg/L [facility] ACCOUNT BILL BLOOD SPECIMEN / Unknown 07/05/2009 6:00 PM CMM OPERATOR 07/05/2009 10:21 PM CMM OPERATOR Narrative Resulting Agency Comment [facility] [address] ??[facility] [phone] Isidro Heredia MD LAB - CHEMISTRY ORD ERABLES [facility] ACCOUNT BILL * COMPREHENSIVE METABOLIC PANEL (07/05/2009 6:00 PM CMM OPERATOR) Glucose 88 65 - 99 mg/dL [facility] [...] BLOOD SPECIMEN / Unknown 07/05/2009 6:00 PM CMM OPERATOR 07/05/2009 10:21 PM CMM OPERATOR Narrative Resulting Agency Comment [facility] [address] ??[facility] [phone] Isidro Heredia MD LAB - CHEMISTRY ORD ERABLES [facility] ACCOUNT BILL * (ABNORMAL) CBC W AUTO DIFFERENTIAL (07/05/2009 6:00 PM CMM OPERATOR) WBC 11.2(H) 4.0 - 10.5 x10E3/uL [facility] [...] BLOOD SPECIMEN / Unknown 07/05/2009 6:00 PM CMM OPERATOR 07/05/2009 10:21 PM CMM OPERATOR Narrative [facility] ACCOUNT BILL - 07/06/2009 7:23 AM CMM OPERATOR Additional Result Information IMMATURE CELLS ([facility]): RESULT NOT AVAILABLE IMMATURE GRANULOCYTES ([facility]): RESULT NOT AVAILABLE IMMATURE GRANS (ABS) ([facility]): RESULT NOT AVAILABLE NRBC ([facility]): RESULT NOT AVAILABLE HEMATOLOGY COMMENTS: ??BLOOD,URINE ([facility]): RESULT NOT AVAILABLE Resulting Agency Comment [facility] [address] ??[facility] [phone] Isidro Heredia MD LAB - HEMATOLOGY OR DERABLES [facility] ACCOUNT BILL documented in this encounter Visit Diagnoses Diagnosis Rheumatoid arthritis(714.0) (HCC)- Primary Rheumatoid arthritis documented in this encounter Care Teams Bow Rehairer Relationship Specialty Start Date End Date Nolberto Nicole MD PCP - General 07/21/08 12/30/13 documented as of this encounter
--- OUTSIDE RECORDS SUMMARY | 2024-05-10 18:51 | XMS_ITS | Encounter Summary ---
Author Organization [facility] Address [address] [place] [address] [place] [address] Care Team Providers Care Keg Inspector Name Role Phone Nolberto Nicole MD Primary Care Provider [phone] Reason for Visit * Reason Onset Date Comments Follow-up 01/12/2009 Encounter Details Date Type Department Care Team (Late st Contact Info) Description 01/12/2009 Telephone [facility] Medical [facility] - Rheumatology [address] [place] [address] [phone] Isidro Heredia MD [address] [place], [place] [phone] Follow-up Social History Tobacco Use Types Packs/Day [...] - 01/12/2009 11:34 AM CDT Yamileth with [employer] called in and on 01/11/09 the patient had 4 lab test that was cancel. Heended up having them done anyway does the office want the results? Was he supposed to have them done? Please call and let her know. documented in this encounter Plan of Treatment Upcoming Encounters Date Type Department Care Team (Late st Contact Info) Description 06/03/2024 1:00 PM AUTOMOTIVE REFINISHER Appointment [facility] - Rheumatology [address] [place] [address] [phone] 06/03/2024 2:00 PM AUTOMOTIVE REFINISHER Office Visit [facility] - Rheumatology [address] [place] [address] Glorai Smith MD [address] [place] [phone] documented as of this encounter Visit Diagnoses Not on filedocumented in this encounter Care Teams Keg Inspector Relationship Specialty Start Date End Date Nolberto Nicole MD PCP - General 07/21/08 12/30/13 documented as of this encounter
--- OUTSIDE RECORDS SUMMARY | 2024-05-10 18:51 | XMS_ITS | Encounter Summary ---
Author Organization [facility] Address [address] [facility] [place] [address] Care Team Providers Care Boat Officer Name Role Phone Nolberto Nicole MD Primary Care Provider [phone] Reason for Visit * Reason Comments Follow-up RA. am stiffness: 1 hr Pain Scale:9/10 Fatigue Pain Joint knees, hands rt shou lder General nodules rt pointer f jenn Encounter Details Date Type Department Care Team (Late st Contact Info) Description 05/26/2010 2:15 PM STEERER Office Visit [facility] - Rheumatology [address] [place] [address] Isidro Heredia MD [address] [place], [place] [phone] Rheumatoid arthritis (HCC) (Primary Dx) Social History [...] Comments Blood Pressure 124/76 05/26/2010 2:39 PM STEERER Pulse 92 05/26/2010 2:39 PM STEERER Temperature - - Respiratory Rate - - Oxygen Saturation - - Inhaled Oxygen Concentration - - Weight 111.6 kg (246 lb) 05/26/2010 2:39 PM STEERER Height - - Body Mass Index 35.3 02/08/2009 5:43 PM CDT documented in this encounter Progress Notes * Rea Hagan MA - 06/07/2010 3:55 PM CSTQuick Note: Sent lab letter to pt RER * Isidro Heredia MD - 05/28/2010 9:25 PM CSTQuick Note: [facility] sl inc mtx ok RER * Isidro Heredia MD - 05/26/2010 3:02 [...] Follow up in office in 4 weeks RER * Rea Hagan MA - 05/26/2010 2:43 PM CST Chief Complaint Patient presents with ??? Follow-up RA. am stiffness: 1 hr Pain Scale:9/10 ??? Fatigue ??? Pain Joint knees, hands rt shoulder ??? General nodules rt pointer finger BP 124/76 Pulse 92 Wt 246 lb (111.585 kg) RER documented in this encounter Plan of Treatment Upcoming Encounters Date Type Department Care Team (Late st Contact Info) Description 06/03/2024 1:00 PM STEERER Appointment [facility] - Rheumatology [address] [place] [address] [phone] 06/03/2024 2:00 PM STEERER Office Visit [facility] - Rheumatology [address] [place] [address] Gloria Smith MD [address] [place] [address] [phone] documented as of this encounter Procedures Procedure Name Priority Date/Time Associated Diagnosis Comments C-REACTIVE PROTEIN Routine 05/26/2010 2: 57 PM STEERER Rheumatoid arthritis (HCC) ERYTHROCYTE SEDIMENTATION RATE Routine 05/26/2010 2:57 PM STEERER Rheumatoid arthritis (HCC) CBC W AUTO DIFFERENTIAL Routine 05/26/2010 2:57 PM STEERER Rheumatoid arthritis (HCC) COMPREHENSIVE METABOLIC PANEL Routine 05/26/2010 2:57 PM STEERER Rheumatoid arthritis (HCC) documented in this encounter Results * (ABNORMAL) SED RATE WESTERGREN AUTO (05/26/2010 2:57 PM STEERER) Erythrocyte Sedimentation Rate Westergren 21(H) 0 - 15 mm/hr [facility] ACCOUNT BILL BLOOD SPECIMEN / Unknown 05/26/2010 2:57 PM STEERER 05/26/2010 8:56 PM STEERER Narrative Resulting Agency Comment [facility] ??[facility] [phone] Isidro Heredia MD LAB - HEMATOLOGY OR DERABLES Performing Organization Address City/[facility]/ZIP Co de Phone Number [facility] ACCOUNT BILL * C-REACTIVE PROTEIN (05/26/2010 2:57 PM STEERER) C-Reactive Protein 3.9 0.0 - 4.9 mg/L [facility] ACCOUNT BILL BLOOD SPECIMEN / Unknown 05/26/2010 2:57 PM STEERER 05/26/2010 8:56 PM STEERER Narrative Resulting Agency Comment [facility] ??[facility] [phone] Isidro Heredia MD LAB - CHEMISTRY ORD ERABLES Performing Organization Address [facility] de Phone Number [facility] ACCOUNT BILL * (ABNORMAL) COMPREHENSIVE METABOLIC PANEL (05/26/2010 2:57 PM STEERER) Glucose 99 65 - 99 mg/dL [facility] [...] BLOOD SPECIMEN / Unknown 05/26/2010 2:57 PM STEERER 05/26/2010 8:56 PM STEERER Narrative Resulting Agency Comment [facility] [address] ??[facility] [phone] Isidro Heredia MD LAB - CHEMISTRY ORD ERABLES [facility] ACCOUNT BILL * (ABNORMAL) CBC W AUTO DIFFERENTIAL (05/26/2010 2:57 PM STEERER) WBC 11.9(H) 4.0 - 10.5 x10E3/uL [facility] [...] BLOOD SPECIMEN / Unknown 05/26/2010 2:57 PM STEERER 05/26/2010 8:56 PM STEERER Narrative Resulting Agency Comment [facility] [address] ??[facility] [phone] Isidro Heredia MD LAB - HEMATOLOGY OR DERABLES [facility] ACCOUNT BILL documented in this encounter Visit Diagnoses Diagnosis Rheumatoid arthritis(714.0) (HCC)- Primary Rheumatoid arthritis documented in this encounter Care Teams Boat Officer Relationship Specialty Start Date End Date Nolberto Nicole MD PCP - General 07/21/08 12/30/13 documented as of this encounter
--- OUTSIDE RECORDS SUMMARY | 2024-05-10 18:51 | XMS_ITS | Encounter Summary ---
Author Organization [facility] Address [address] [place] [address] Care Team Providers Care Pile Driving Superintendent Name Role Phone Nolberto Nicole MD Primary Care Provider [phone] Encounter Details Date Type Department Care Team (Late Contact Info) Description 10/12/2008 Orders Only [facility] - Rheumatology [address] [place] [address] Isidro Heredia MD [address] [place] [phone] Social History Tobacco Use Types Packs/Day [...] (Late Contact Info) Description 06/03/2024 1:00 PM ACADEMIC SUCCESS COORDINATOR Appointment [facility] - Rheumatology [address] [place] [address] 06/03/2024 2:00 PM ACADEMIC SUCCESS COORDINATOR Office Visit [facility] - Rheumatology [address] [place] [address] Gloria Smith MD [address] [place] [phone] documented as of this encounter Procedures Procedure Name Priority Date/Time Associated Diagnosis Comments RHEUMATOID FACTOR BLOOD QUANTITATIVE 10/12/2008 6:16 PM CDT documented in this encounter Results * RHEUMATOID FACTOR BLOOD QUANTITATIVE (10/12/2008 6:16 PM CDT) Rheumatoid Factor 4.7 0.0 - 13.9 IU/mL [facility] ACCOUNT BILL 10/12/2008 6:16 PM CDT 10/12/2008 9:22 PM CDT Narrative Resulting Agency Comment [facility] [address] ??[facility] [phone] Isidro Heredia MD LAB - CHEMISTRY ORD ERABLES [facility] ACCOUNT BILL documented in this encounter Visit Diagnoses Not on filedocumented in this encounter Care Teams Pile Driving Superintendent Relationship Specialty Start Date End Date Nolberto Nicole MD PCP - General 07/21/08 12/30/13 documented as of this encounter
--- OUTSIDE RECORDS SUMMARY | 2024-05-10 18:51 | XMS_ITS | Encounter Summary ---
Author Organization [facility] Address [address] [place] [address] Care Team Providers Care Test Worker Name Role Phone Nolberto Nicole MD Primary Care Provider [phone] Reason for Visit * Reason Comments Follow-up Ra Pain Scale: 7/10 Am Stiffness: 1 -2 hours Sleep: 5 hours Fatigue: yes Encounter Details Date Type Department Care Team (Late st Contact Info) Description 10/03/2010 5:00 PM CDT Office Visit [facility] - Rheumatology [address] [place] [address] Isidro Heredia MD [address] [place] [phone] Rheumatoid arthritis (HCC) (Primary Dx); Triceps [...] st Contact Info) Description 06/03/2024 1:00 PM POLE PEELING MACHINE OPERATOR Appointment [facility] - Rheumatology [address] [place] [address] 06/03/2024 2:00 PM POLE PEELING MACHINE OPERATOR Office Visit [facility] - Rheumatology [address] [place] [address] Gloria Smith MD [address] [place] [phone] documented as of this encounter Procedures [...] CDT Narrative Resulting Agency Comment [facility] [address] ??[facility] [phone] Isidro Heredia MD LAB - HEMATOLOGY OR DERABLES [facility] ACCOUNT BILL * C-REACTIVE PROTEIN (10/03/2010 5:56 PM CDT) C-Reactive Protein 3.7 0.0 - 4.9 mg/L [facility] ACCOUNT BILL BLOOD SPECIMEN / Unknown 10/03/2010 5:56 PM CDT 10/03/2010 9:44 PM CDT Narrative Resulting Agency Comment [facility] [address] ??[facility] [phone] Isidro Heredia MD LAB - CHEMISTRY ORD [...] PM CDT Narrative Resulting Agency Comment [facility] [place] [address] [facility] ??[facility] [phone] Isidro Heredia MD LAB - CHEMISTRY ORD [...] CDT Narrative Resulting Agency Comment [facility] [address] ??[facility] [phone] Isidro Heredia MD LAB - HEMATOLOGY OR DERABLES [facility] ACCOUNT BILL documented in this encounter Visit Diagnoses Diagnosis Rheumatoid arthritis(714.0) (HCC)- Primary Rheumatoid arthritis Triceps tendonitis Other enthesopathy of elbow region documented in this encounter Care Teams Test Worker Relationship Specialty Start Date End Date Nolberto Nicole MD PCP - General 07/21/08 12/30/13 documented as of this encounter
--- OUTSIDE RECORDS SUMMARY | 2024-05-10 18:51 | XMS_ITS | Encounter Summary ---
Author Organization [facility] Address [address] [place] [address] Care Team Providers Care Side Laster Name Role Phone Nolberto Nicole MD Primary Care Provider [phone] Encounter Details Date Type Department Care Team (Late Contact Info) Description 11/08/2009 Orders Only [facility] - Rheumatology [address] [place] [address] Isidro Heredia MD [address] [place] [address] Social History Tobacco Use Types Packs/Day [...] (Late Contact Info) Description 06/03/2024 1:00 PM MARIONETTE PERFORMER Appointment [facility] - Rheumatology [address] [place] [address] 06/03/2024 2:00 PM MARIONETTE PERFORMER Office Visit [facility] - Rheumatology [address] [place] [address] Gloria Smith MD [address] [place] [phone] documented as of this encounter Procedures [...] NOT AVAILABLE Resulting Agency Comment [facility] [address] ??[facility] [phone] Isidro Heredia MD LAB - HEMATOLOGY OR DERABLES [facility] ACCOUNT BILL documented in this encounter Visit Diagnoses Not on filedocumented in this encounter Care Teams Side Laster Relationship Specialty Start Date End Date Nolberto Nicole MD PCP - General 07/21/08 12/30/13 documented as of this encounter
--- OUTSIDE RECORDS SUMMARY | 2024-05-10 18:51 | XMS_ITS | Encounter Summary ---
Author Organization [facility] Address [address] [place] [address] [place] [address] Care Team Providers Care Livestock Farmer Name Role Phone Nolberto Nicole MD Primary Care Provider [phone] Reason for Visit * Reason Comments Follow-up RA Encounter Details Date Type Department Care Team (Late st Contact Info) Description 01/16/2011 5:30 PM CDT Office Visit [facility] Medical [facility] - Rheumatology [address] [place] [address] [phone] Isidro Heredia MD [address] [place] [address] [phone] Rheumatoid arthritis (HCC) (Primary Dx); Triceps tendonitis [...] Drug Use Not on file went to [facility] for a week Pain Level: 11/06 Am [...] Contact Info) Description 06/03/2024 1:00 PM DIRECTOR TRANSITION Appointment [facility] - Rheumatology [address] [place] [address] 06/03/2024 2:00 PM DIRECTOR TRANSITION Office Visit [facility] - Rheumatology [address] [place] [address] Gloria Smith MD [address] [place] [phone] documented as of this encounter Procedures [...] PM CDT Narrative Resulting Agency Comment [facility] [place] [address] [facility] ??[facility] [phone] Isidro Heredia MD LAB - HEMATOLOGY OR [...] CDT Narrative Resulting Agency Comment [facility] [address] ??[facility] [phone] Isidro Heredia MD LAB - CHEMISTRY ORD ERABLES [facility] ACCOUNT BILL * (ABNORMAL) C-REACTIVE PROTEIN (01/16/2011 6:00 PM CDT) C-Reactive Protein 5.8(H) 0.0 - 4.9 mg/L [facility] ACCOUNT BILL BLOOD SPECIMEN / Unknown 01/16/2011 6:00 PM CDT 01/16/2011 10:24 PM CDT Narrative Resulting Agency Comment [facility] [address] ??[facility] [phone] Isidro Heredia MD LAB - CHEMISTRY ORD [...] CDT Narrative Resulting Agency Comment [facility] [address] ??[facility] [phone] Isidro Heredia MD LAB - HEMATOLOGY OR DERABLES [facility] ACCOUNT BILL documented in this encounter Visit Diagnoses Diagnosis Rheumatoid arthritis(714.0) (HCC)- Primary Rheumatoid arthritis Triceps tendonitis Other enthesopathy of elbow region documented in this encounter Care Teams Livestock Farmer Relationship Specialty Start Date End Date Nolberto Nicole MD PCP - General 07/21/08 12/30/13 documented as of this encounter
--- OUTSIDE RECORDS SUMMARY | 2024-05-10 18:51 | XMS_ITS | Encounter Summary ---
Author Organization [facility] Address [address] [place] [address] Care Team Providers Care Loan Operations Specialist Name Role Phone Nolberto Nicole MD Primary Care Provider [phone] Encounter Details Date Type Department Care Team (Late Contact Info) Description 07/05/2009 Orders Only [facility] - Rheumatology [address] [place] [address] Isidro Heredia MD [address] [place] [phone] Social History Tobacco Use Types Packs/Day [...] st Contact Info) Description 06/03/2024 1:00 PM LVN HOME HEALTH Appointment [facility] - Rheumatology [address] [place] [address] 06/03/2024 2:00 PM LVN HOME HEALTH Office Visit [facility] - Rheumatology [address] [place] [address] Gloria Smith MD [address] [place] [phone] documented as of this encounter Procedures Procedure Name Priority Date/Time Associated Diagnosis Comments ERYTHROCYTE SEDIMENTATION RATE 07/05/2009 6:00 PM LVN HOME HEALTH documented in this encounter Results * SED RATE WESTERGREN AUTO (07/05/2009 6:00 PM LVN HOME HEALTH) Erythrocyte Sedimentation Rate Westergren 15 0 - 15 mm/hr [facility] ACCOUNT BILL 07/05/2009 6:00 PM LVN HOME HEALTH 07/05/2009 10:21 PM LVN HOME HEALTH Narrative Resulting Agency Comment [facility] [place] [phone] [facility] ??[facility] [phone] Isidro Heredia MD LAB - HEMATOLOGY OR DERABLES [facility] ACCOUNT BILL documented in this encounter Visit Diagnoses Not on filedocumented in this encounter Care Teams Loan Operations Specialist Relationship Specialty Start Date End Date Nolberto Nicole MD PCP - General 07/21/08 12/30/13 documented as of this encounter
--- OUTSIDE RECORDS SUMMARY | 2024-05-10 18:51 | XMS_ITS | Encounter Summary ---
Author Organization [facility] Address [address] [facility] [place] [address] Care Team Providers Care Edging Machine Feeder Name Role Phone Nolberto Nicole MD Primary Care Provider [phone] Reason for Visit * Reason Comments Shoulder Pain left Pain Scale: 9/1 0 Pain Knee Swelling fingers. and sore General Pain Scale: 7/10 Encounter Details Date Type Department Care Team (Late st Contact Info) Description 07/25/2010 4:45 PM CDT Office Visit [facility] - Rheumatology [address] [place] [address] Isidro Heredia MD [address] [place] [address] Rheumatoid arthritis (HCC) (Primary Dx); Osteopenia; [...] st Contact Info) Description 06/03/2024 1:00 PM CONTINUING EDUCATION DIRECTOR Appointment [facility] - Rheumatology [address] [place] [address] [phone] 06/03/2024 2:00 PM CONTINUING EDUCATION DIRECTOR Office Visit [facility] - Rheumatology [address] [place] [address] [phone] Gloria Smith MD [address] [place] [address] [phone] documented as of this encounter Procedures Procedure [...] 9:35 PM CDT Narrative Resulting Agency Comment [facility] ??[facility] [phone] Isidro Heredia MD LAB - HEMATOLOGY OR DERABLES Performing Organization Address City/[facility]/ZIP Co de Phone Number [facility] ACCOUNT BILL * C-REACTIVE PROTEIN (07/25/2010 5:28 PM CDT) C-Reactive Protein 2.4 0.0 - 4.9 mg/L [facility] ACCOUNT BILL BLOOD SPECIMEN / Unknown 07/25/2010 5:28 PM CDT 07/25/2010 9:35 PM CDT Narrative Resulting Agency Comment [facility] [id number] [facility] ??[facility] [phone] Isidro Heredia MD LAB - CHEMISTRY ORD ERABLES Performing Organization Address City/[facility]/ZIP Co de Phone Number [facility] [...] PM CDT Narrative Resulting Agency Comment [facility] [place] [address] [facility] ??[facility] [phone] Isidro Heredia MD LAB - CHEMISTRY ORD [...] CDT Narrative Resulting Agency Comment [facility] [address] ??[facility] [id number] Isidro Heredia MD LAB - HEMATOLOGY OR DERABLES [facility] ACCOUNT BILL documented in this encounter Visit Diagnoses Diagnosis Rheumatoid arthritis(714.0) (HCC)- Primary Rheumatoid arthritis Osteopenia Disorder of bone and cartilage, unspecified Subacromial bursitis Other specified disorders of rotator cuff syndrome of shoulder and allied disorders documented in this encounter Care Teams Edging Machine Feeder Relationship Specialty Start Date End Date Nolberto Nicole MD PCP - General 07/21/08 12/30/13 documented as of this encounter
--- OUTSIDE RECORDS SUMMARY | 2024-05-10 18:51 | XMS_ITS | Encounter Summary ---
Author Organization [facility] Address [address] [facility] [place] [address] Care Team Providers Care Category Consultant Name Role Phone Nolberto Nicole MD Primary Care Provider [phone] Encounter Details Date Type Department Care Team (Late Contact Info) Description 02/08/2009 Orders Only [facility] - Rheumatology [address] [place] [address] [phone] Isidro Heredia MD [address] [place] [address] [phone] Social History Tobacco Use Types Packs/Day Years [...] (Late Contact Info) Description 06/03/2024 1:00 PM BANDOLEER PACKER Appointment [facility] - Rheumatology [address] [place] [address] 06/03/2024 2:00 PM BANDOLEER PACKER Office Visit [facility] - Rheumatology [address] [place] [address] Gloria Smith MD [address] [place] [address] [phone] documented as of this encounter Procedures Procedure [...] CDT Narrative Resulting Agency Comment [facility] [address] ??[facility] [phone] Isidro Heredia MD LAB - CHEMISTRY ORD [...] CDT Narrative Resulting Agency Comment [facility] [address] ??[facility] [phone] Isidro Heredia MD LAB - CHEMISTRY ORD [...] RESULT NOT AVAILABLE Resulting Agency Comment [facility] [address] ??[facility] [phone] Isidro Heredia MD LAB - HEMATOLOGY OR DERABLES [facility] ACCOUNT BILL documented in this encounter Visit Diagnoses Not on filedocumented in this encounter Care Teams Category Consultant Relationship Specialty Start Date End Date Nolberto Nicole MD PCP - General 07/21/08 12/30/13 documented as of this encounter
--- OUTSIDE RECORDS SUMMARY | 2024-05-10 18:51 | XMS_ITS | Encounter Summary ---
Author Organization [facility] Address [address] [place] [address] [place] [address] Care Team Providers Care Cook Roast Name Role Phone Nolberto Nicole MD Primary Care Provider [phone] Reason for Visit * Reason Comments Follow-up ra Encounter Details Date Type Department Care Team (Late st Contact Info) Description 01/11/2009 4:15 PM CDT Office Visit [facility] Medical [facility] - Rheumatology [address] [place] [address] [phone] Isidro Heredia MD [address] [place] [address] [phone] Rheumatoid Arthritis (HCC) (Primary Dx) Social History [...] st Contact Info) Description 06/03/2024 1:00 PM PATHOLOGY LABORATORY AIDES TEACHER Appointment [facility] - Rheumatology [address] [place] [address] 06/03/2024 2:00 PM PATHOLOGY LABORATORY AIDES TEACHER Office Visit [facility] - Rheumatology [address] [place] [address] Gloria Smith MD [address] [place] [phone] Scheduled Orders Name Type Priority Associated Diagnoses [...] CDT Narrative Resulting Agency Comment [facility] [address] ??[facility] [phone] Isidro Heredia MD LAB - HEMATOLOGY OR DERABLES [facility] ACCOUNT BILL * C-REACTIVE PROTEIN (CRP) (01/11/2009 5:23 PM CDT) C-Reactive Protein 1.6 0.0 - 4.9 mg/L [facility] ACCOUNT BILL BLOOD SPECIMEN / Unknown 01/11/2009 5:23 PM CDT 01/11/2009 9:32 PM CDT Narrative Resulting Agency Comment [facility] [address] ??[facility] [phone] Isidro Heredia MD LAB - CHEMISTRY ORD [...] RESULT NOT AVAILABLE Resulting Agency Comment [facility] [address] ??[facility] [phone] Isidro Heredia MD LAB - HEMATOLOGY OR DERABLES [facility] ACCOUNT BILL documented in this encounter Visit Diagnoses Diagnosis Rheumatoid arthritis(714.0) (HCC)- Primary Rheumatoid arthritis documented in this encounter Care Teams Cook Roast Relationship Specialty Start Date End Date Nolberto Nicole MD PCP - General 07/21/08 12/30/13 documented as of this encounter
--- OUTSIDE RECORDS SUMMARY | 2024-05-10 18:51 | XMS_ITS | Encounter Summary ---
Author Organization [facility] Address [address] [place] [address] [place] [address] Care Team Providers Care Dethistler Operator Name Role Phone Nolberto Nicole MD Primary Care Provider [phone] Reason for Visit * Reason Comments Follow-up ra Encounter Details Date Type Department Care Team (Late st Contact Info) Description 04/05/2009 3:00 PM CLIN ASST Office Visit [facility] - Rheumatology [address] [place] [address] [phone] Isidro Heredia MD [address] [place] [address] Rheumatoid Arthritis (HCC) (Primary Dx) Social History [...] Comments Blood Pressure 130/74 04/05/2009 3:07 PM CLIN ASST Pulse 84 04/05/2009 3:07 PM CLIN ASST Temperature - - Respiratory Rate - - Oxygen Saturation - - Inhaled Oxygen Concentration - - Weight 107.5 kg (237 lb) 04/05/2009 3:07 PM CLIN ASST Height - - Body Mass Index 34.01 02/08/2009 5:43 PM CDT documented in this encounter Progress Notes * Rea Hagan MA - 04/13/2009 1:04 PM CSTQuick Note: Sent letter ASST * Isidro Heredia MD - 04/11/2009 6:52 PM CSTQurolando Note: Mtx ok ASST * Isidro Heredia MD - 04/05/2009 3:37 [...] Follow up in office in 4 weeks ASST * Rea Hagan MA - 04/05/2009 3:09 PM CST Chief Complaint Patient presents with ??? Follow-up ra BP 130/74 Pulse 84 Wt 107.502 kg (237 lb) ASST documented in this encounter Plan of Treatment Upcoming Encounters Date Type Department Care Team (Late st Contact Info) Description 06/03/2024 1:00 PM CLIN ASST Appointment [facility] - Rheumatology [address] [place] [phone] 06/03/2024 2:00 PM CLIN ASST Office Visit [facility] - Rheumatology [address] [place] [address] [phone] Gloria Smith MD [address] [place] [phone] documented as of this encounter Procedures Procedure Name Priority Date/Time Associated Diagnosis Comments RHEUMATOID FACTOR BLOOD QUANTITATIVE Routine 04/05/2009 3:13 PM CLIN ASST Rheumatoid Arthritis (HCC) C-REACTIVE PROTEIN Routine 04/05/2009 3: 13 PM CLIN ASST Rheumatoid Arthritis (HCC) CBC W AUTO DIFFERENTIAL Routine 04/05/2009 3:13 PM CLIN ASST Rheumatoid Arthritis (HCC) COMPREHENSIVE METABOLIC PANEL Routine 04/05/2009 3:13 PM CLIN ASST Rheumatoid Arthritis (HCC) documented in this encounter Results * RHEUMATOID FACTOR BLOOD QUANTITATIVE (04/05/2009 3:13 PM CLIN ASST) Rheumatoid Factor 8.0 0.0 - 13.9 IU/mL [facility] ACCOUNT BILL BLOOD SPECIMEN / Unknown 04/05/2009 3:13 PM CLIN ASST 04/05/2009 10:32 PM CLIN ASST Narrative Resulting Agency Comment [facility] [address] [facility] ??[facility] [phone] Isidro Heredia MD LAB - CHEMISTRY ORD ERABLES [facility] ACCOUNT BILL * C-REACTIVE PROTEIN (04/05/2009 3:13 PM CLIN ASST) C-Reactive Protein 3.6 0.0 - 4.9 mg/L [facility] ACCOUNT BILL BLOOD SPECIMEN / Unknown 04/05/2009 3:13 PM CLIN ASST 04/05/2009 10:32 PM CLIN ASST Narrative Resulting Agency Comment [facility] [phone] [facility] ??[facility] [phone] Isidro Heredia MD LAB - CHEMISTRY ORD ERABLES [facility] ACCOUNT BILL * COMPREHENSIVE METABOLIC PANEL (04/05/2009 3:13 PM CLIN ASST) Glucose 93 65 - 99 mg/dL [facility] [...] BLOOD SPECIMEN / Unknown 04/05/2009 3:13 PM CLIN ASST 04/05/2009 10:32 PM CLIN ASST Narrative Resulting Agency Comment [facility] [place] [phone] [facility] ??[facility] [phone] Isidro Heredia MD LAB - CHEMISTRY ORD ERABLES [facility] ACCOUNT BILL * CBC W AUTO DIFFERENTIAL (04/05/2009 3:13 PM CLIN ASST) WBC 8.6 4.0 - 10.5 x10E3/uL [facility] [...] BLOOD SPECIMEN / Unknown 04/05/2009 3:13 PM CLIN ASST 04/05/2009 10:32 PM CLIN ASST Narrative [facility] ACCOUNT BILL - 04/06/2009 8:31 AM CLIN ASST Additional Result Information HEMATOLOGY COMMENTS: ??BLOOD,URINE ([facility]): RESULT NOT AVAILABLE Resulting Agency Comment [facility] [address] ??[facility] [phone] Isidro Heredia MD LAB - HEMATOLOGY OR DERABLES Performing Organization Address City/State/[facility] Co de Phone Number [facility] ACCOUNT BILL documented in this encounter Visit Diagnoses Diagnosis Rheumatoid arthritis(714.0) ([facility])- Primary Rheumatoid arthritis documented in this encounter Care Teams Dethistler Operator Relationship Specialty Start Date End Date Nolberto Nicole MD PCP - General 07/21/08 12/30/13 documented as of this encounter
--- OUTSIDE RECORDS SUMMARY | 2024-05-10 18:51 | XMS_ITS | Encounter Summary ---
Author Organization [facility] Address [address] [place] [address] Care Team Providers Care Production Coordinator Name Role Phone Nolberto Nicole MD Primary Care Provider Reason for Visit * Reason Comments Chest [...] Description 08/30/2009 5:30 PM CDT Office Visit [facility] - Rheumatology [address] [place] [address] Isidro Heredia MD [address] [place], [place] [phone] Rheumatoid Arthritis (HCC) (Primary Dx) Social History [...] Contact Info) Description 06/03/2024 1:00 PM FINISH MENDER Appointment [facility] - Rheumatology [address] [place] [address] [phone] 06/03/2024 2:00 PM FINISH MENDER Office Visit [facility] - Rheumatology [address] [place] [address] Gloria Smith MD [address] [place] [phone] Scheduled Orders Name Type Priority Associated Diagnoses Orde r Schedule CBC W AUTO DIFFERENTIAL Lab Routine Rheumatoid Arthritis ([facility]) Ordered: 08/30/2009 COMPREHENSIVE METABOLIC PANEL Lab Routine Rheumatoid Arthritis ([facility]) Ordered: 08/30/2009 RAQUEL W REFLX (POSITIVE) (PO REF LAB) Lab Routine Rheumatoid Arthritis ([facility]) Ordered: 08/30/2009 documented as of this encounter Procedures Procedure Name Priority Date/Time Associated Diagnosis Comments CYCLIC CITRUL PEPTIDE ANTIBODY IGG/IGA (CCP) Routine 08/30/2009 6:07 PM CDT Rheumatoid Arthritis ([facility]) RHEUMATOID FACTOR BLOOD QUANTITATIVE Routine 08/30/2009 6:07 PM CDT Rheumatoid Arthritis ([facility]) C-REACTIVE PROTEIN Routine 08/30/2009 6: 07 PM CDT Rheumatoid Arthritis ([facility]) ERYTHROCYTE SEDIMENTATION RATE Routine 08/30/2009 6:07 PM CDT Rheumatoid Arthritis (HCC) documented in this encounter Results * SED RATE WESTERGREN AUTO (08/30/2009 6:07 PM CDT) Erythrocyte Sedimentation Rate Westergren 14 0 - 15 mm/hr [facility] ACCOUNT BILL BLOOD SPECIMEN / Unknown 08/30/2009 6:07 PM CDT 08/30/2009 8:42 PM CDT Narrative Resulting Agency Comment [facility] [place] [address] ??[facility] [phone] Isidro Heredia MD LAB - HEMATOLOGY OR DERABLES [facility] ACCOUNT BILL * RHEUMATOID FACTOR BLOOD QUANTITATIVE (08/30/2009 6:07 PM CDT) Rheumatoid Factor 6.8 0.0 - 13.9 IU/mL [facility] ACCOUNT BILL BLOOD SPECIMEN / Unknown 08/30/2009 6:07 PM CDT 08/30/2009 8:42 PM CDT Narrative Resulting Agency Comment [facility] [address] ??[facility] [phone] Isidro Heredia MD LAB - CHEMISTRY ORD ERABLES Performing Organization Address [facility] Co de Phone Number [facility] [...] PM CDT Narrative Resulting Agency Comment [facility] [address] ??[facility] [phone] Isidro Heredia MD LAB - SEROLOGY MARII ARAUJO [facility] ACCOUNT BILL * C-REACTIVE PROTEIN (08/30/2009 6:07 PM CDT) C-Reactive Protein 2.8 0.0 - 4.9 mg/L [facility] ACCOUNT BILL BLOOD SPECIMEN / Unknown 08/30/2009 6:07 PM CDT 08/30/2009 8:42 PM CDT Narrative Resulting Agency Comment [facility] [place] [phone] [facility] ??[facility] [phone] Isidro Heredia MD LAB - CHEMISTRY ORD DONNIE [facility] ACCOUNT BILL documented in this encounter Visit Diagnoses Diagnosis Rheumatoid arthritis(714.0) ([facility])- Primary Rheumatoid arthritis documented in this encounter Care Teams Production Coordinator Relationship Specialty Start Date End Date Nolberto Nicole MD PCP - General 07/21/08 12/30/13 documented as of this encounter
--- OUTSIDE RECORDS SUMMARY | 2024-05-10 18:51 | XMS_ITS | Encounter Summary ---
Author Organization [facility] Address [address] [facility] [place] [address] Care Team Providers Care Crimping Machine Operator Name Role Phone Nolberto Nicole MD Primary Care Provider Isidro Heredia MD Unavailable [phone] Reason for Visit * Reason Comments Follow-up RAa Arthritis joint achey all over Swelling Hand obdulia * Consult, Test & Treat (Routine) - Closed Specialty Diagnoses / Procedures Referred By Lawrence shah Referred To Contact Diagnoses Rheumatoid arthritis(714.0) (HCC) Procedures IA OFFICE VISIT DURING HOURS Nolberto Nicole MD [address] [place] [phone] Isidro Heredia MD [address] [place] [address] Referral ID Status Reason Start Date Expiration Date Visits Re quested Visits Authorized [id number] Closed 01/06/2011 07/04/2011 1 5 Encounter Details Date Type Department Care Team (Late st Contact Info) Description 04/17/2011 5:00 PM PREMIUM SERVICE REPRESENTATIVE Office Visit [facility] - Rheumatology [address] [place] [address] Isidro Heredia MD [address] [place] [address] Rheumatoid arthritis (HCC) (Primary Dx); [...] Comments Blood Pressure 130/80 04/17/2011 5:22 PM PREMIUM SERVICE REPRESENTATIVE Pulse 76 04/17/2011 5:23 PM PREMIUM SERVICE REPRESENTATIVE Temperature - - Respiratory Rate - - Oxygen Saturation - - Inhaled Oxygen Concentration - - Weight 108.4 kg (239 lb) 04/17/2011 5:23 PM PREMIUM SERVICE REPRESENTATIVE Height - - Body Mass Index 34.29 02/08/2009 5:43 PM CDT documented in this encounter Progress Notes * Corry Santizo MA - 04/27/2011 3:41 PM CSTQuick Note: Letter mailed to patient regarding lab results. IUM SERVICE REPRESENTATIVE * Isidro Heredia MD - 04/24/2011 3:48 PM CSTQuick Note: mtx ok IUM SERVICE REPRESENTATIVE * Isidro Heredia MD - 04/17/2011 5:21 [...] PO) Take by mouth once daily. ??? Apqjfvpgfwd-Hsjbjuaqo-Aql C-Mn (GLUCOSAMINE CHONDR 1500 COMPLX PO) Take [...] Follow up in office in 4 weeks IUM SERVICE REPRESENTATIVE * Rea Hagan MA - 04/17/2011 5:21 PM CST Chief Complaint Patient presents with ??? Follow-up RAa ??? Arthritis joint achey all over ??? Swelling Hand obdulia BP 130/80 Pulse 76 Wt 239 lb (108.41 kg) IUM SERVICE REPRESENTATIVE documented in this encounter Plan of Treatment Upcoming Encounters Date Type Department Care Team (Late st Contact Info) Description 06/03/2024 1:00 PM PREMIUM SERVICE REPRESENTATIVE Appointment [facility] - Rheumatology [address] [place] [phone] 06/03/2024 2:00 PM PREMIUM SERVICE REPRESENTATIVE Office Visit [facility] - Rheumatology [address] [place] [address] Gloria Smith MD [address] [place] [phone] documented as of this encounter Procedures Procedure Name Priority Date/Time Associated Diagnosis Comments C-REACTIVE PROTEIN Routine 04/17/2011 5: 13 PM PREMIUM SERVICE REPRESENTATIVE Rheumatoid arthritis (HCC) ERYTHROCYTE SEDIMENTATION RATE Routine 04/17/2011 5:13 PM PREMIUM SERVICE REPRESENTATIVE Rheumatoid arthritis (HCC) CBC W AUTO DIFFERENTIAL Routine 04/17/2011 5:13 PM PREMIUM SERVICE REPRESENTATIVE Rheumatoid arthritis (HCC) COMPREHENSIVE METABOLIC PANEL Routine 04/17/2011 5:13 PM PREMIUM SERVICE REPRESENTATIVE Rheumatoid arthritis (HCC) documented in this encounter Results * SED RATE WESTERGREN AUTO (04/17/2011 5:13 PM PREMIUM SERVICE REPRESENTATIVE) Erythrocyte Sedimentation Rate Westergren 23 0 - 23 mm/hr [facility] ACCOUNT BILL Blood specimen (specimen) BLOOD SPECIMEN / Unknown 04/17/2011 5:13 PM PREMIUM SERVICE REPRESENTATIVE 04/17/2011 10:15 PM PREMIUM SERVICE REPRESENTATIVE Narrative Resulting Agency Comment [facility] [place] [address] ??Counts include 234 beds at the [facility] [phone] Isidro Heredia MD LAB - HEMATOLOGY OR DERABLES [facility] ACCOUNT BILL * (ABNORMAL) C-REACTIVE PROTEIN (04/17/2011 5:13 PM PREMIUM SERVICE REPRESENTATIVE) C-Reactive Protein 16.0(H) 0.0 - 4.9 mg/L [facility] ACCOUNT BILL Blood specimen (specimen) BLOOD SPECIMEN / Unknown 04/17/2011 5:13 PM PREMIUM SERVICE REPRESENTATIVE 04/17/2011 10:15 PM PREMIUM SERVICE REPRESENTATIVE Narrative Resulting Agency Comment [facility] [place] [address] ??Counts include 234 beds at the [facility] [phone] Isidro Heredia MD LAB - CHEMISTRY ORD ERABLES [facility] ACCOUNT BILL * (ABNORMAL) COMPREHENSIVE METABOLIC PANEL (04/17/2011 5:13 PM PREMIUM SERVICE REPRESENTATIVE) Glucose 106(H) 65 - 99 mg/dL [facility] [...] BLOOD SPECIMEN / Unknown 04/17/2011 5:13 PM PREMIUM SERVICE REPRESENTATIVE 04/17/2011 10:15 PM PREMIUM SERVICE REPRESENTATIVE Narrative Resulting Agency Comment [facility] [address] ??Counts include 234 beds at the [facility] [phone] Isidro Heredia MD LAB - CHEMISTRY ORD ERABLES [facility] ACCOUNT BILL * (ABNORMAL) CBC W AUTO DIFFERENTIAL (04/17/2011 5:13 PM PREMIUM SERVICE REPRESENTATIVE) WBC 10.0 4.0 - 10.5 x10E3/uL [facility] [...] BLOOD SPECIMEN / Unknown 04/17/2011 5:13 PM PREMIUM SERVICE REPRESENTATIVE 04/17/2011 10:15 PM PREMIUM SERVICE REPRESENTATIVE Narrative Resulting Agency Comment [facility] [place] [phone] [facility] ??Counts include 234 beds at the [facility] [phone] Isidro Heredia MD LAB - HEMATOLOGY OR DERABLES [facility] ACCOUNT BILL documented in this encounter Visit Diagnoses Diagnosis Rheumatoid arthritis(714.0) (HCC)- Primary Rheumatoid arthritis Triceps tendonitis Other enthesopathy of elbow region documented in this encounter Care Teams Crimping Machine Operator Relationship Specialty Start Date End Date Nolberto Nicole MD PCP - General 07/21/08 12/30/13 Isidro Heredia MD Rheumatology 02/09/11 documented as of this encounter
--- OUTSIDE RECORDS SUMMARY | 2024-05-10 18:51 | XMS_ITS | Encounter Summary ---
Author Organization [facility] Address [address] [facility] [place] [address] Care Team Providers Care Automobiles Salesperson Name Role Phone Nolberto Nicole MD Primary Care Provider [phone] Isidro Heredia MD Unavailable Reason for Visit * Reason Comments Follow-up ra Shoulder Pain left Swelling Hand obdulia Pain Knee obdulia Encounter Details Date Type Department Care Team (Late st Contact Info) Description 02/13/2011 5:30 PM CDT Office Visit [facility] - Rheumatology [address] [place] [address] Isidro Heredia MD [address] [place] [address] Rheumatoid arthritis (HCC) (Primary Dx); Triceps [...] st Contact Info) Description 06/03/2024 1:00 PM BACKBREAKER Appointment [facility] - Rheumatology [address] [place] [address] 06/03/2024 2:00 PM BACKBREAKER Office Visit [facility] - Rheumatology [address] [place] [address] Gloria Smith MD [address] [place] [phone] documented as of this encounter Procedures Procedure [...] CDT Narrative Resulting Agency Comment [facility] [address] ??[facility] [phone] Isidro Heredia MD LAB - SEROLOGY MARII ARAUJO Performing Organization Address City/[facility] Co de Phone Number [facility] ACCOUNT BILL * RHEUMATOID FACTOR BLOOD QUANTITATIVE (02/13/2011 5:59 PM CDT) Pathologist [facility] Rheumatoid Factor 8.0 0.0 - 13.9 IU/mL [facility] ACCOUNT BILL Blood specimen (specimen) BLOOD SPECIMEN / Unknown 02/13/2011 5:59 PM CDT 02/13/2011 9:26 PM CDT Narrative Resulting Agency Comment [facility] [address] [facility] ??[facility] [phone] Isidro Heredia MD LAB - CHEMISTRY CALEB FIELDS [facility] ACCOUNT BILL * (ABNORMAL) SED RATE WESTERGREN AUTO (02/13/2011 5:59 PM CDT) Erythrocyte Sedimentation Rate Westergren 24(H) 0 - 23 mm/hr [facility] ACCOUNT BILL Blood specimen (specimen) BLOOD SPECIMEN / Unknown 02/13/2011 5:59 PM CDT 02/13/2011 9:26 PM CDT Narrative Resulting Agency Comment [facility] ??[facility] [phone] Isidro Heredia MD LAB - HEMATOLOGY OR DERABLES [facility] ACCOUNT BILL * C-REACTIVE PROTEIN (02/13/2011 5:59 PM CDT) C-Reactive Protein 1.2 0.0 - 4.9 mg/L [facility] ACCOUNT BILL Blood specimen (specimen) BLOOD SPECIMEN / Unknown 02/13/2011 5:59 PM CDT 02/13/2011 9:26 PM CDT Narrative Resulting Agency Comment [facility] [address] ??[facility] [phone] Isidro Heredia MD LAB - CHEMISTRY ORD ERABLES Performing Organization Address City/[facility]/ZIP Co de Phone Number [facility] ACCOUNT [...] CDT Narrative Resulting Agency Comment [facility] [address] ??[facility] [phone] Isidro Heredia MD LAB - CHEMISTRY ORD [...] CDT Narrative Resulting Agency Comment [facility] [address] ??[facility] [phone] Isidro Heredia MD LAB - HEMATOLOGY OR DERABLES [facility] ACCOUNT BILL documented in this encounter Visit Diagnoses Diagnosis Rheumatoid arthritis(714.0) (HCC)- Primary Rheumatoid arthritis Triceps tendonitis Other enthesopathy of elbow region Subacromial bursitis Other specified disorders of rotator cuff syndrome of shoulder and allied disorders documented in this encounter Care Teams Automobiles Salesperson Relationship Specialty Start Date End Date Nolberto Nicole MD PCP - General 07/21/08 12/30/13 Isidro Heredia MD Rheumatology 02/09/11 documented as of this encounter
--- OUTSIDE RECORDS SUMMARY | 2024-05-10 18:51 | XMS_ITS | Encounter Summary ---
Author Organization [facility] Address [address] [facility] [place] [address] Care Team Providers Care Aircraft Navigator Name Role Phone Nolberto Nicole MD Primary Care Provider [phone] Encounter Details Date Type Department Care Team (Late Contact Info) Description 11/16/2008 Orders Only [facility] - Rheumatology [address] [place] [address] Isidro Heredia MD [address] [place] [address] Social History Tobacco Use Types Packs/Day [...] (Late Contact Info) Description 06/03/2024 1:00 PM CAGE SHIFT MANAGER Appointment [facility] - Rheumatology [address] [place] [address] 06/03/2024 2:00 PM CAGE SHIFT MANAGER Office Visit [facility] - Rheumatology [address] [place] [address] Gloria Smith MD [address] [place] [phone] documented as of this encounter Procedures Procedure Name Priority Date/Time Associated Diagnosis Comments C-REACTIVE PROTEIN 11/16/2008 6: 09 PM CDT ERYTHROCYTE SEDIMENTATION RATE 11/16/2008 6:09 PM CDT documented in this encounter Results * C-REACTIVE PROTEIN (11/16/2008 6:09 PM CDT) C-Reactive Protein 4.8 0.0 - 4.9 mg/L [facility] ACCOUNT BILL 11/16/2008 6:09 PM CDT 11/16/2008 9:41 PM CDT Narrative Resulting Agency Comment [facility] [address] ??[facility] [phone] Isidro Heredia MD LAB - CHEMISTRY ORD ERABLES Performing Organization Address City/[facility]/ZIP Co de Phone Number [facility] ACCOUNT BILL * (ABNORMAL) SED RATE WESTERGREN AUTO (11/16/2008 6:09 PM CDT) Erythrocyte Sedimentation Rate Westergren 20(H) 0 - 15 mm/hr [facility] ACCOUNT BILL 11/16/2008 6:09 PM CDT 11/16/2008 9:41 PM CDT Narrative Resulting Agency Comment [facility] [address] [facility] ??[facility] [phone] Isidro Heredia MD LAB - HEMATOLOGY OR DERABLES [facility] ACCOUNT BILL documented in this encounter Visit Diagnoses Not on filedocumented in this encounter Care Teams Aircraft Navigator Relationship Specialty Start Date End Date Nolberto Nicole MD PCP - General 07/21/08 12/30/13 documented as of this encounter
--- OUTSIDE RECORDS SUMMARY | 2024-05-10 18:51 | XMS_ITS | Encounter Summary ---
Author Organization [facility] Address [address] [place] [address] [place] [address] Care Team Providers Care Application Designer Name Role Phone Nolberto Nicole MD Primary Care Provider [phone] Reason for Visit * Reason Comments Follow-up ra Encounter Details Date Type Department Care Team (Late st Contact Info) Description 03/08/2009 4:00 PM AUTOMOTIVE TECHNICIAN Office Visit [facility] - Rheumatology [address] [place] [address] [phone] Isidro Heredia MD [address] [place], [place] [phone] Rheumatoid Arthritis (HCC) (Primary Dx); Osteopenia Social [...] Comments Blood Pressure 128/80 03/08/2009 4:03 PM AUTOMOTIVE TECHNICIAN Pulse 92 03/08/2009 4:03 PM AUTOMOTIVE TECHNICIAN Temperature - - Respiratory Rate - - Oxygen Saturation - - Inhaled Oxygen Concentration - - Weight 108.9 kg (240 lb) 03/08/2009 4:03 PM AUTOMOTIVE TECHNICIAN Height - - Body Mass Index 34.44 02/08/2009 5:43 PM CDT documented in this encounter Progress Notes * Rea Hagan MA - 06/17/2009 11:47 AM CSTQuick Note: Sent lab letter to pt re labs MOTIVE TECHNICIAN * Isidro Heredia MD - 06/13/2009 7:57 AM CSTQuick Note: Mtx ok MOTIVE TECHNICIAN * Rea Hagan MA - 03/18/2009 4:48 PM CSTQuick Note: Sent letter MOTIVE TECHNICIAN * Isidro Heredia MD - 03/14/2009 6:32 PM CSTQuick Note: Mtx ok MOTIVE TECHNICIAN * Isidro Heredia MD - 03/08/2009 4:43 [...] Follow up in office in 4 weeks MOTIVE TECHNICIAN * Rea Hagan MA - 03/08/2009 4:04 PM CST Chief Complaint Patient presents with ??? Follow-up ra BP 128/80 Pulse 92 Wt 108.863 kg (240 lb) MOTIVE TECHNICIAN documented in this encounter Plan of Treatment Upcoming Encounters Date Type Department Care Team (Late st Contact Info) Description 06/03/2024 1:00 PM AUTOMOTIVE TECHNICIAN Appointment [facility] - Rheumatology [address] [place] [address] 06/03/2024 2:00 PM AUTOMOTIVE TECHNICIAN Office Visit [facility] - Rheumatology [address] [place] [address] Gloria Smith MD [address] [place] [phone] documented as of this encounter Procedures Procedure Name Priority Date/Time Associated Diagnosis Comments CBC W AUTO DIFFERENTIAL Routine 06/07/2009 5:41 PM AUTOMOTIVE TECHNICIAN Rheumatoid Arthritis (HCC) COMPREHENSIVE METABOLIC PANEL Routine 06/07/2009 5:41 PM AUTOMOTIVE TECHNICIAN Rheumatoid Arthritis (HCC) C-REACTIVE PROTEIN Routine 03/08/2009 4: 28 PM AUTOMOTIVE TECHNICIAN Rheumatoid Arthritis (HCC) ERYTHROCYTE SEDIMENTATION RATE Routine 03/08/2009 4:28 PM AUTOMOTIVE TECHNICIAN Rheumatoid Arthritis (HCC) documented in this encounter Results * COMPREHENSIVE METABOLIC PANEL (06/07/2009 5:41 PM AUTOMOTIVE TECHNICIAN) Glucose 90 65 - 99 mg/dL [facility] [...] BLOOD SPECIMEN / Unknown 06/07/2009 5:41 PM AUTOMOTIVE TECHNICIAN 06/07/2009 9:20 PM AUTOMOTIVE TECHNICIAN Narrative Resulting Agency Comment [facility] [address] ??[facility] [phone] Isidro Heredia MD LAB - CHEMISTRY ORD ERABLES [facility] ACCOUNT BILL * CBC W AUTO DIFFERENTIAL (06/07/2009 5:41 PM AUTOMOTIVE TECHNICIAN) WBC 10.4 4.0 - 10.5 x10E3/uL [facility] [...] BLOOD SPECIMEN / Unknown 06/07/2009 5:41 PM AUTOMOTIVE TECHNICIAN 06/07/2009 9:20 PM AUTOMOTIVE TECHNICIAN Narrative [facility] ACCOUNT BILL - 06/08/2009 7:22 AM AUTOMOTIVE TECHNICIAN Additional Result Information IMMATURE CELLS ([facility]): RESULT NOT AVAILABLE IMMATURE GRANULOCYTES ([facility]): RESULT NOT AVAILABLE IMMATURE GRANS (ABS) ([facility]): RESULT NOT AVAILABLE NRBC ([facility]): RESULT NOT AVAILABLE HEMATOLOGY COMMENTS: ??BLOOD,URINE ([facility]): RESULT NOT AVAILABLE Resulting Agency Comment [facility] [place] [address] ??[facility] [phone] Isidro Heredia MD LAB - HEMATOLOGY OR DERABLES Performing Organization Address City/[facility]/ZIP Co de Phone Number [facility] ACCOUNT BILL * SED RATE WESTERGREN AUTO (03/08/2009 4:28 PM AUTOMOTIVE TECHNICIAN) Erythrocyte Sedimentation Rate Westergren 7 0 - 15 mm/hr [facility] ACCOUNT BILL BLOOD SPECIMEN / Unknown 03/08/2009 4:28 PM AUTOMOTIVE TECHNICIAN 03/08/2009 9:28 PM AUTOMOTIVE TECHNICIAN Narrative Resulting Agency Comment [facility] [place] [address] ??[facility] [phone] Isidro Heredia MD LAB - HEMATOLOGY OR DERABLES Performing Organization Address City/[facility] Co de Phone Number [facility] ACCOUNT BILL * C-REACTIVE PROTEIN (03/08/2009 4:28 PM AUTOMOTIVE TECHNICIAN) C-Reactive Protein 2.4 0.0 - 4.9 mg/L [facility] ACCOUNT BILL BLOOD SPECIMEN / Unknown 03/08/2009 4:28 PM AUTOMOTIVE TECHNICIAN 03/08/2009 9:28 PM AUTOMOTIVE TECHNICIAN Narrative Resulting Agency Comment [facility] [place] [address] ??[facility] [phone] Isidro Heredia MD LAB - CHEMISTRY ORD ERABLES Performing Organization Address City/[facility] Co de Phone Number [facility] ACCOUNT BILL documented in this encounter Visit Diagnoses Diagnosis Rheumatoid arthritis(714.0) ([facility])- Primary Rheumatoid arthritis Osteopenia Disorder of bone and cartilage, unspecified documented in this encounter Care Teams Application Designer Relationship Specialty Start Date End Date Nolberto Nicole MD PCP - General 07/21/08 12/30/13 documented as of this encounter
--- OUTSIDE RECORDS SUMMARY | 2024-05-10 18:52 | XMS_ITS | Encounter Summary ---
Author Organization [facility] Address [address] [place] [address] [place] [address] Care Team Providers Care Civil Engineering Design Draftsperson Name Role Phone Nolberto Nicole MD Primary Care Provider [phone] Reason for Visit * Reason Comments Rheumatoid Arthritis followup Encounter Details Date Type Department Care Team (Late st Contact Info) Description 07/27/2008 3:30 PM CDT Office Visit [facility] - Rheumatology [address] [place] [address] [phone] Isidro Heredia MD [address] [place], [place] [phone] Rheumatoid Arthritis (HCC) (Primary Dx) Social History [...] st Contact Info) Description 06/03/2024 1:00 PM COAT FINISHER Appointment [facility] - Rheumatology [address] [place] [address] 06/03/2024 2:00 PM COAT FINISHER Office Visit [facility] - Rheumatology [address] [place] [address] Gloria Smith MD [address] [place] [phone] documented as of this encounter Procedures Procedure [...] PM CDT Narrative Resulting Agency Comment [facility] [place] [address] ??[facility] [phone] Isidro Heredia MD LAB - HEMATOLOGY OR DERABLES [facility] ACCOUNT BILL * C-REACTIVE PROTEIN (07/27/2008 4:39 PM CDT) C-Reactive Protein 3.0 0.0 - 4.9 mg/L [facility] ACCOUNT BILL BLOOD SPECIMEN / Unknown 07/27/2008 4:39 PM CDT 07/27/2008 9:25 PM CDT Narrative Resulting Agency Comment [facility] [place] [address] ??[facility] [phone] Isidro Heredia MD LAB - CHEMISTRY ORD [...] CDT Narrative Resulting Agency Comment [facility] [address] ??[facility] [phone] Isidro Heredia MD LAB - CHEMISTRY ORD [...] RESULT NOT AVAILABLE Resulting Agency Comment [facility] [address] ??[facility] [phone] Isidro Heredia MD LAB - HEMATOLOGY OR DERABLES [facility] ACCOUNT BILL documented in this encounter Visit Diagnoses Diagnosis Rheumatoid arthritis(714.0) (HCC)- Primary Rheumatoid arthritis documented in this encounter Care Teams Civil Engineering Design Draftsperson Relationship Specialty Start Date End Date Nolberto Nicole MD PCP - General 07/21/08 12/30/13 documented as of this encounter
--- OUTSIDE RECORDS SUMMARY | 2024-05-10 18:52 | XMS_ITS | Continuity of Care Document ---
Author Organization [facility] Address [address] [place] [address] [place] [address] Phone Care Team Providers Care Sergeant Of Corrections Name Role Phone Lupis Pena Unavailable Unavailable Procedures Procedure Date Visual Field Examination(s) Eye Exam & Treatment Visual Field Examination(s) Office/outpatient Visit, Est Visual Field Examination(s) Eye Exam & Treatment Refraction Advance Directives Directive Yes / No Effective Date File Name No Information Encounters Encounter Description Practice Location Reason(s) For Visit Diagnoses Date Provider Providers Copied on Encounter [facility], [address] [place] [address] [address], [place], [place], [id number], tel:[phone] [facility] No Information 0 Becky Baugh. [address] , [address], [place], [address], [place]. tel:[phone] Referring Provider: Lupis Palafox, [address], [place], [place], [facility][note 2]. tel:[phone] [facility], [address] [place] [address] [address], [place], [place], [id number], tel:[phone] [facility] No Information Jun- 9-201 0 Becky Baugh. [address] , [address], [place], [address], [place]. tel:[phone] [facility], [address] [place] [address] [address], [place], [place], [id number], tel:[phone] [facility] No Information b-0 8-201 0 Becky Baugh. [address] , [address], [place], [place], [facility][note 2], . tel:[phone] Referring Provider: Lupis Palafox, [address], [place], [place], [facility][note 2]. tel:[phone] Office/outpat ient Visit, [facility] [id number] [place] [address] [address], [place], [place], [id number], tel:[phone] [facility] No Information 9 Becky Hoff [address] , [address], [place], [facility][note 2], . tel:[phone] [facility], [address] [place] [address] [address], [place], [place], [id number], tel:[phone] [facility] No Information Mar-0 2-200 8 Becky Baugh. [address] [facility] [address] , [address], [place], [place], [facility][note 2], . tel:[phone] Referring Provider: Lupis Palafox, [address], [place], [facility][note 2]. tel:[phone] [facility], [address] [place] [address] [address], [place], [place], [id number], tel:[phone] [facility] No Information 200 8 Bekcy Baugh. [address] [facility] [address] [address] , [address], [place], [place], [facility][note 2], . tel:[phone] Family History Family Member Type Diagnosis Age At Onset No Information Payers Payer name Insurance type Covered green party ID Authoriza tion(s) No Information Social [...]
--- OUTSIDE RECORDS SUMMARY | 2024-05-10 18:52 | XMS_ITS | Encounter Summary ---
Author Organization [facility] Address [address] [place] [address] Care Team Providers Care Hollow Core Door Frame Assembler Name Role Phone Unavailable Primary Care Provider Unavailabl e Encounter Details Date Type Department Care Team (Late st Contact Info) Description 05/18/2008 Orders Only [facility] - Family Medicine [address] [place] [address] Isidro Heredia MD [address] [place] [address] Social History Tobacco Use Types Packs/Day Years Used Date Smoking Tobacco: Never Assessed Sex and Gender Information Value Date Recorded Sex Assigned at Not on file Gender Identity Not on file Sexual Orientation Not on file documented as of this encounter Plan of Treatment Upcoming Encounters Date Type Department Care Team (Late st Contact Info) Description 06/03/2024 1:00 PM PIPE OR STEAM FITTER FURNACE INSTALLER Appointment [facility] - Rheumatology [address] [place] [address] 06/03/2024 2:00 PM PIPE OR STEAM FITTER FURNACE INSTALLER Office Visit [facility] - Rheumatology [address] [place] [address] Gloria Smith MD [address] [place] [phone] documented as of this encounter Procedures Procedure Name Priority Date/Time Associated Diagnosis Comments RHEUMATOID FACTOR BLOOD QUANTITATIVE 05/18/2008 5:47 PM PIPE OR STEAM FITTER FURNACE INSTALLER C-REACTIVE PROTEIN 05/18/2008 5: 47 PM PIPE OR STEAM FITTER FURNACE INSTALLER ERYTHROCYTE SEDIMENTATION RATE 05/18/2008 5:47 PM PIPE OR STEAM FITTER FURNACE INSTALLER CBC W AUTO DIFFERENTIAL 05/18/2008 5:47 PM PIPE OR STEAM FITTER FURNACE INSTALLER COMPREHENSIVE METABOLIC PANEL 05/18/2008 5:47 PM PIPE OR STEAM FITTER FURNACE INSTALLER documented in this encounter Results * C-REACTIVE PROTEIN (05/18/2008 5:47 PM PIPE OR STEAM FITTER FURNACE INSTALLER) C-Reactive Protein 1.8 0.0 - 4.9 mg/L [facility] ACCOUNT BILL 05/18/2008 5:47 PM PIPE OR STEAM FITTER FURNACE INSTALLER 05/18/2008 10:06 PM PIPE OR STEAM FITTER FURNACE INSTALLER Narrative Resulting Agency Comment [facility] [place] [address] ??[facility] [phone] Isidro Heredia MD LAB - CHEMISTRY ORD ERABLES [facility] ACCOUNT BILL * SED RATE WESTERGREN AUTO (05/18/2008 5:47 PM PIPE OR STEAM FITTER FURNACE INSTALLER) Erythrocyte Sedimentation Rate Westergren 7 0 - 15 mm/hr [facility] ACCOUNT BILL 05/18/2008 5:47 PM PIPE OR STEAM FITTER FURNACE INSTALLER 05/18/2008 10:06 PM PIPE OR STEAM FITTER FURNACE INSTALLER Narrative Resulting Agency Comment [facility] [place] [address] ??[facility] [phone] Isidro Heredia MD LAB - HEMATOLOGY OR DERABLES [facility] ACCOUNT BILL * RHEUMATOID FACTOR BLOOD QUANTITATIVE (05/18/2008 5:47 PM PIPE OR STEAM FITTER FURNACE INSTALLER) Rheumatoid Factor 5.5 0.0 - 13.9 IU/mL [facility] ACCOUNT BILL 05/18/2008 5:47 PM PIPE OR STEAM FITTER FURNACE INSTALLER 05/18/2008 10:06 PM PIPE OR STEAM FITTER FURNACE INSTALLER Narrative Resulting Agency Comment [facility] [place] [address] [facility] ??[facility] [phone] Isidro Heredia MD LAB - CHEMISTRY ORD ERABLES [facility] ACCOUNT BILL * COMPREHENSIVE METABOLIC PANEL (05/18/2008 5:47 PM PIPE OR STEAM FITTER FURNACE INSTALLER) Glucose 90 65 - 99 mg/dL [facility] [...] IU/L [facility] ACCOUNT BILL 05/18/2008 5:47 PM PIPE OR STEAM FITTER FURNACE INSTALLER 05/18/2008 10:06 PM PIPE OR STEAM FITTER FURNACE INSTALLER Narrative Resulting Agency Comment [facility] [place] [address] [facility] ??[facility] [phone] Isidro Heredia MD LAB - CHEMISTRY ORD ERABLES [facility] ACCOUNT BILL * CBC W AUTO DIFFERENTIAL (05/18/2008 5:47 PM PIPE OR STEAM FITTER FURNACE INSTALLER) WBC 10.5 4.0 - 10.5 x10E3/uL [facility] [...] AVAIL. [facility] ACCOUNT BILL 05/18/2008 5:47 PM PIPE OR STEAM FITTER FURNACE INSTALLER 05/18/2008 10:06 PM PIPE OR STEAM FITTER FURNACE INSTALLER Narrative [facility] ACCOUNT BILL - 05/19/2008 9:28 AM PIPE OR STEAM FITTER FURNACE INSTALLER Additional Result Information HEMATOLOGY COMMENTS: ??BLOOD,URINE ([facility]): RESULT NOT AVAILABLE Resulting Agency Comment [facility] [address] ??[facility] [phone] Isidro Heredia MD LAB - HEMATOLOGY OR DERABLES [facility] ACCOUNT BILL documented in this encounter Visit Diagnoses Not on filedocumented in this encounter
--- OUTSIDE RECORDS SUMMARY | 2024-05-10 18:52 | XMS_ITS | Encounter Summary ---
Author Organization [facility] Address [address] [place] [address] [place] [address] Care Team Providers Care Sheet Metal Former Name Role Phone Nolberto Nicole MD Primary Care Provider [phone] Reason for Visit * Reason Comments Rheumatoid Arthritis followup Encounter Details Date Type Department Care Team (Late st Contact Info) Description 08/24/2008 5:45 PM CDT Office Visit [facility] - Rheumatology [address] [place] [address] [phone] Isidro Heredia MD [address] [place] [address] Rheumatoid Arthritis (HCC) (Primary Dx); Osteopenia Social [...] ,TSH,hemoglobin AIc fax results to Dr. Alonso [phone] [facility] [employer] documented in this encounter Plan of Treatment Upcoming Encounters Date Type Department Care Team (Late st Contact Info) Description 06/03/2024 1:00 PM SILO FILLER Appointment [facility] - Rheumatology [address] [place] [address] [phone] 06/03/2024 2:00 PM SILO FILLER Office Visit [facility] - Rheumatology [address] [place] [address] [phone] Gloria Smith MD [address] [place] [phone] Scheduled Orders Name Type Priority Associated Diagnoses [...] ?<7.0 ?Healthy Adult ?4.8 - 5.9 ?(DCCT/NGSP) ?[place] [employer]'s Summary of Glycemic ?Recommendations for Adults with Diabetes: ?Hemoglobin A1c <7.0%. More stringent glycemic goals ?(A1c <6.0%) may further reduce complications at the ?cost of increased risk of hypoglycemia. BLOOD SPECIMEN / Unknown 08/24/2008 6:37 PM CDT 08/24/2008 9:56 PM CDT Narrative Resulting Agency Comment [facility] [place] [address] ??[facility] [phone] Isidro Heredia MD LAB - CHEMISTRY ORD ERABLES [facility] INSURANCE BILL * TSH (08/24/2008 6:37 PM CDT) TSH 1.487 0.450 - 4.500 uIU/mL [facility] INSURANCE BILL BLOOD SPECIMEN / Unknown 08/24/2008 6:37 PM CDT 08/24/2008 9:56 PM CDT Narrative Resulting Agency Comment [facility] [place] [address] ??[facility] [phone] Isidro Heredia MD LAB - CHEMISTRY ORD ERABLES Performing Organization Address [facility] Co de Phone Number [facility] INSURANCE BILL * URIC ACID BLOOD (08/24/2008 6:37 PM CDT) Uric Acid 5.1 2.4 - 8.2 mg/dL [facility] INSURANCE BILL BLOOD SPECIMEN / Unknown 08/24/2008 6:37 PM CDT 08/24/2008 9:56 PM CDT Narrative Resulting Agency Comment [facility] [place] [address] ??[facility] [phone] Isidro Heredia MD LAB - CHEMISTRY ORD ERABLES Performing Organization Address City/[facility] Co de Phone Number [facility] INSURANCE BILL * T4 TOTAL (08/24/2008 6:37 PM CDT) T4 Total 8.7 4.5 - 12.0 ug/dL [facility] INSURANCE BILL BLOOD SPECIMEN / Unknown 08/24/2008 6:37 PM CDT 08/24/2008 9:56 PM CDT Narrative Resulting Agency [facility] [address] ??[facility] [phone] Isidro Heredia MD LAB - CHEMISTRY ORD ERABLES [facility] INSURANCE BILL * SED RATE WESTERGREN AUTO (08/24/2008 6:37 PM CDT) Erythrocyte Sedimentation Rate Westergren 10 0 - 15 mm/hr [facility] INSURANCE BILL BLOOD SPECIMEN / Unknown 08/24/2008 6:37 PM CDT 08/24/2008 9:56 PM CDT Narrative Resulting Agency Comment [facility] ??[facility] [phone] Isidro Heredia MD LAB - HEMATOLOGY OR DERABLES Performing Organization Address [facility] Co de Phone Number [facility] INSURANCE BILL * (ABNORMAL) C-REACTIVE PROTEIN (08/24/2008 6:37 PM CDT) C-Reactive Protein 5.2(H) 0.0 - 4.9 mg/L [facility] INSURANCE BILL BLOOD SPECIMEN / Unknown 08/24/2008 6:37 PM CDT 08/24/2008 9:56 PM CDT Narrative Resulting Agency Comment [address] ??[facility] [phone] Isidro Heredia MD LAB - CHEMISTRY ORD ERABLES Performing Organization Address [facility] Co de Phone Number [...] CDT Narrative Resulting Agency Comment [facility] [address] ??[facility] [phone] Isidro Heredia MD LAB - CHEMISTRY ORD [...] RESULT NOT AVAILABLE Resulting Agency Comment [facility] [address] ??[facility] [phone] Isidro Heredia MD LAB - HEMATOLOGY OR DERABLES [facility] INSURANCE BILL documented in this encounter Visit Diagnoses Diagnosis Rheumatoid arthritis(714.0) ([facility])- Primary Rheumatoid arthritis Osteopenia Disorder of bone and cartilage, unspecified documented in this encounter Care Teams Sheet Metal Former Relationship Specialty Start Date End Date Nolberto Nicole MD PCP - General 07/21/08 12/30/13 documented as of this encounter
--- OUTSIDE RECORDS SUMMARY | 2024-05-10 18:52 | XMS_ITS | Encounter Summary ---
Author Organization [facility] Address [address] [place] [address] Care Team Providers Care Chief Gauger Name Role Phone Nolberto Nicole MD Primary Care Provider [phone] Isidro Heredia MD Unavailable [phone] Tomas Hyman MD Primary Care Provider [phone] Tomas Hyman MD Primary Care Provider [phone] Encounter Details Date Type Department Care Team (Late st Contact Info) Description 08/18/2008 [facility] Outpatient Visit [facility] DEPT Isidro Heredia MD [address] [place] [address] Social History Tobacco Use Types Packs/Day [...] (Late Contact Info) Description 06/03/2024 1:00 PM GATE KEEPER Appointment [facility] - Rheumatology [address] [place] [address] [phone] 06/03/2024 2:00 PM GATE KEEPER Office Visit [facility] - Rheumatology [address] [place] [address] Gloria Smith MD [facility] [place] [phone] documented as of this encounter Visit Diagnoses Not on filedocumented in this encounter Care Teams Chief Gauger Relationship Specialty Start Date End Date Nolberto Nicole MD PCP - General 07/21/08 12/30/13 Tomas Hyman MD [address] [place] [address] PCP - General Family Medicine 12/31/13 05/09/18 Tomas Hyman MD [address] [place] [address] PCP - General Family Medicine 09/05/18 Isidro Heredia MD Rheumatology 02/09/11 documented as of this encounter
--- OUTSIDE RECORDS SUMMARY | 2024-05-10 18:52 | XMS_ITS | Encounter Summary ---
Author Organization [facility] Address [address] [place] [address] Care Team Providers Care Weigher Operator Name Role Phone Unavailable Primary Care Provider Unavailabl e Encounter Details Date Type Department Care Team (Late st Contact Info) Description 03/30/2008 Orders Only [facility] - Family Medicine [address] [place] [address] Isidro Heredia MD [address] [place] [id number] Social History Tobacco Use Types Packs/Day Years Used Date Smoking Tobacco: Never Assessed Sex and Gender Information Value Date Recorded Sex Assigned at Not on file Gender Identity Not on file Sexual Orientation Not on file documented as of this encounter Plan of Treatment Upcoming Encounters Date Type Department Care Team (Late st Contact Info) Description 06/03/2024 1:00 PM PREPARED FOODS TEAM LEADER Appointment [facility] - Rheumatology [address] [place] [address] 06/03/2024 2:00 PM PREPARED FOODS TEAM LEADER Office Visit [facility] - Rheumatology [address] [place] [address] Gloria Smith MD [address] [place] [phone] documented as of this encounter Procedures Procedure Name Priority Date/Time Associated Diagnosis Comments C-REACTIVE PROTEIN 03/30/2008 4: 45 PM PREPARED FOODS TEAM LEADER ERYTHROCYTE SEDIMENTATION RATE 03/30/2008 4:45 PM PREPARED FOODS TEAM LEADER CBC W AUTO DIFFERENTIAL 03/30/2008 4:45 PM PREPARED FOODS TEAM LEADER COMPREHENSIVE METABOLIC PANEL 03/30/2008 4:45 PM PREPARED FOODS TEAM LEADER documented in this encounter Results * C-REACTIVE PROTEIN (03/30/2008 4:45 PM PREPARED FOODS TEAM LEADER) C-Reactive Protein 3.2 0.0 - 4.9 mg/L [facility] ACCOUNT BILL 03/30/2008 4:45 PM PREPARED FOODS TEAM LEADER 03/30/2008 10:25 PM PREPARED FOODS TEAM LEADER Narrative Resulting Agency Comment [facility] [address] ??[facility] [phone] Isidro Heredia MD LAB - CHEMISTRY ORD ERABLES Performing Organization Address [facility] de Phone Number [facility] ACCOUNT BILL * SED RATE WESTERGREN AUTO (03/30/2008 4:45 PM PREPARED FOODS TEAM LEADER) Erythrocyte Sedimentation Rate Westergren 10 0 - 15 mm/hr [facility] ACCOUNT BILL 03/30/2008 4:45 PM PREPARED FOODS TEAM LEADER 03/30/2008 10:25 PM PREPARED FOODS TEAM LEADER Narrative Resulting Agency Comment [facility] [address] ??[facility] [phone] Isidro Heredia MD LAB - HEMATOLOGY OR DERABLES Performing Organization Address City/[facility] Co de Phone Number [facility] ACCOUNT BILL * COMPREHENSIVE METABOLIC PANEL (03/30/2008 4:45 PM PREPARED FOODS TEAM LEADER) Glucose 94 65 - 99 mg/dL [facility] [...] IU/L [facility] ACCOUNT BILL 03/30/2008 4:45 PM PREPARED FOODS TEAM LEADER 03/30/2008 10:25 PM PREPARED FOODS TEAM LEADER Narrative Resulting Agency Comment [facility] [address] ??[facility] [phone] Isidro Heredia MD LAB - CHEMISTRY ORD ERABLES [facility] ACCOUNT BILL * CBC W AUTO DIFFERENTIAL (03/30/2008 4:45 PM PREPARED FOODS TEAM LEADER) WBC 8.9 4.0 - 10.5 x10E3/uL [facility] ACCOUNT BILL Comment: Effective April 06, 2008, the pediatric reference intervals ??will be changing on all result codes that are included in ??CBC With Differential/Platelet(357171). RBC 4.57 4.10 - 5.60 x10E6/uL [facility] [...] AVAIL. [facility] ACCOUNT BILL 03/30/2008 4:45 PM PREPARED FOODS TEAM LEADER 03/30/2008 10:25 PM PREPARED FOODS TEAM LEADER Narrative [facility] ACCOUNT BILL - 03/31/2008 9:36 AM PREPARED FOODS TEAM LEADER Additional Result Information HEMATOLOGY COMMENTS: ??BLOOD,URINE ([facility]): RESULT NOT AVAILABLE Resulting Agency Comment [facility] [address] ??[facility] [phone] Isidro Heredia MD LAB - HEMATOLOGY OR DERABLES [facility] ACCOUNT BILL documented in this encounter Visit Diagnoses Not on filedocumented in this encounter
--- OUTSIDE RECORDS SUMMARY | 2024-05-10 18:52 | XMS_ITS | Encounter Summary ---
Author Organization [facility] Address [address] [place] [address] Care Team Providers Care Care Management Coordinator Name Role Phone Unavailable Primary Care Provider Unavailabl e Encounter Details Date Type Department Care Team (Late st Contact Info) Description 06/22/2008 Orders Only [facility] - Family Medicine [address] [place] [address] Isidro Heredia MD [address] [place] [address] Social History Tobacco Use Types Packs/Day Years Used Date Smoking Tobacco: Never Assessed Sex and Gender Information Value Date Recorded Sex Assigned at Not on file Gender Identity Not on file Sexual Orientation Not on file documented as of this encounter Plan of Treatment Upcoming Encounters Date Type Department Care Team (Late st Contact Info) Description 06/03/2024 1:00 PM OR RN Appointment [facility] - Rheumatology [address] [place] [address] 06/03/2024 2:00 PM OR RN Office Visit [facility] - Rheumatology [address] [place] [address] Gloria Smith MD [address] [place] [phone] documented as of this encounter Procedures Procedure Name Priority Date/Time Associated Diagnosis Comments C-REACTIVE PROTEIN 06/22/2008 5: 42 PM OR RN ERYTHROCYTE SEDIMENTATION RATE 06/22/2008 5:42 PM OR RN CBC W AUTO DIFFERENTIAL 06/22/2008 5:42 PM OR RN COMPREHENSIVE METABOLIC PANEL 06/22/2008 5:42 PM OR RN documented in this encounter Results * (ABNORMAL) C-REACTIVE PROTEIN (06/22/2008 5:42 PM OR RN) C-Reactive Protein 5.5(H) 0.0 - 4.9 mg/L [facility] ACCOUNT BILL 06/22/2008 5:42 PM OR RN 06/22/2008 9:42 PM OR RN Narrative Resulting Agency Comment [facility] [place] [id number] ??[facility] [phone] Isidro Heredia MD LAB - CHEMISTRY ORD ERABLES Performing Organization Address City/[facility] Co de Phone Number [facility] ACCOUNT BILL * SED RATE WESTERGREN AUTO (06/22/2008 5:42 PM OR RN) Erythrocyte Sedimentation Rate Westergren 10 0 - 15 mm/hr [facility] ACCOUNT BILL 06/22/2008 5:42 PM OR RN 06/22/2008 9:42 PM OR RN Narrative Resulting Agency Comment [facility] [place] [address] ??[facility] [phone] Isidro Heredia MD LAB - HEMATOLOGY OR DERABLES Performing Organization Address City/[facility] Co de Phone Number [facility] ACCOUNT BILL * COMPREHENSIVE METABOLIC PANEL (06/22/2008 5:42 PM OR RN) Glucose 86 65 - 99 mg/dL [facility] [...] IU/L [facility] ACCOUNT BILL 06/22/2008 5:42 PM OR RN 06/22/2008 9:42 PM OR RN Narrative Resulting Agency Comment [facility] [address] ??[facility] [phone] Isidro Heredia MD LAB - CHEMISTRY ORD ERABLES [facility] ACCOUNT BILL * (ABNORMAL) CBC W AUTO DIFFERENTIAL (06/22/2008 5:42 PM OR RN) WBC 11.3(H) 4.0 - 10.5 x10E3/uL [facility] [...] AVAIL. [facility] ACCOUNT BILL 06/22/2008 5:42 PM OR RN 06/22/2008 9:42 PM OR RN Narrative [facility] ACCOUNT BILL - 06/23/2008 8:39 AM OR RN Additional Result Information HEMATOLOGY COMMENTS: ??BLOOD,URINE ([facility]): RESULT NOT AVAILABLE Resulting Agency Comment [facility] [address] ??[facility] [phone] Isidro Heredia MD LAB - HEMATOLOGY OR DERABLES [facility] ACCOUNT BILL documented in this encounter Visit Diagnoses Not on filedocumented in this encounter
--- OUTSIDE RECORDS SUMMARY | 2024-05-10 18:52 | XMS_ITS | Encounter Summary ---
Author Organization [facility] Address [address] [place] [address] Care Team Providers Care Manager Of Pmo Name Role Phone Unavailable Primary Care Provider Unavailabl e Encounter Details Date Type Department Care Team (Late st Contact Info) Description 04/20/2008 Orders Only [facility] - Family Medicine [address] [place] [address] Isidro Heredia MD [address] [place] [address] Social History Tobacco Use Types Packs/Day Years Used Date Smoking Tobacco: Never Assessed Sex and Gender Information Value Date Recorded Sex Assigned at Not on file Gender Identity Not on file Sexual Orientation Not on file documented as of this encounter Plan of Treatment Upcoming Encounters Date Type Department Care Team (Late st Contact Info) Description 06/03/2024 1:00 PM SYSTEMS CHECKOUT MECHANIC Appointment [facility] - Rheumatology [address] [place] [address] 06/03/2024 2:00 PM SYSTEMS CHECKOUT MECHANIC Office Visit [facility] - Rheumatology [address] [place] [address] Gloria Smith MD [address] [place] [phone] documented as of this encounter Procedures Procedure Name Priority Date/Time Associated Diagnosis Comments C-REACTIVE PROTEIN 04/20/2008 5: 32 PM SYSTEMS CHECKOUT MECHANIC ERYTHROCYTE SEDIMENTATION RATE 04/20/2008 5:32 PM SYSTEMS CHECKOUT MECHANIC CBC W AUTO DIFFERENTIAL 04/20/2008 5:32 PM SYSTEMS CHECKOUT MECHANIC COMPREHENSIVE METABOLIC PANEL 04/20/2008 5:32 PM SYSTEMS CHECKOUT MECHANIC documented in this encounter Results * C-REACTIVE PROTEIN (04/20/2008 5:32 PM SYSTEMS CHECKOUT MECHANIC) C-Reactive Protein 1.9 0.0 - 4.9 mg/L [facility] ACCOUNT BILL 04/20/2008 5:32 PM SYSTEMS CHECKOUT MECHANIC 04/20/2008 9:26 PM SYSTEMS CHECKOUT MECHANIC Narrative Resulting Agency Comment [facility] [address] ??[facility] [phone] Isidro Heredia MD LAB - CHEMISTRY ORD ERABLES Performing Organization Address [facility] Co de Phone Number [facility] ACCOUNT BILL * SED RATE WESTERGREN AUTO (04/20/2008 5:32 PM SYSTEMS CHECKOUT MECHANIC) Erythrocyte Sedimentation Rate Westergren 6 0 - 15 mm/hr [facility] ACCOUNT BILL 04/20/2008 5:32 PM SYSTEMS CHECKOUT MECHANIC 04/20/2008 9:26 PM SYSTEMS CHECKOUT MECHANIC Narrative Resulting Agency Comment [facility] [address] ??[facility] [phone] Isidro Heredia MD LAB - HEMATOLOGY OR DERABLES Performing Organization Address City/[facility] Co de Phone Number [facility] ACCOUNT BILL * COMPREHENSIVE METABOLIC PANEL (04/20/2008 5:32 PM SYSTEMS CHECKOUT MECHANIC) Glucose 94 65 - 99 mg/dL [facility] [...] IU/L [facility] ACCOUNT BILL 04/20/2008 5:32 PM SYSTEMS CHECKOUT MECHANIC 04/20/2008 9:26 PM SYSTEMS CHECKOUT MECHANIC Narrative Resulting Agency Comment [facility] [address] ??[facility] [phone] Isidro Heredia MD LAB - CHEMISTRY ORD ERABLES [facility] ACCOUNT BILL * (ABNORMAL) CBC W AUTO DIFFERENTIAL (04/20/2008 5:32 PM SYSTEMS CHECKOUT MECHANIC) WBC 9.4 4.0 - 10.5 x10E3/uL [facility] [...] AVAIL. [facility] ACCOUNT BILL 04/20/2008 5:32 PM SYSTEMS CHECKOUT MECHANIC 04/20/2008 9:26 PM SYSTEMS CHECKOUT MECHANIC Narrative [facility] ACCOUNT BILL - 04/21/2008 8:27 AM SYSTEMS CHECKOUT MECHANIC Additional Result Information HEMATOLOGY COMMENTS: ??BLOOD,URINE ([facility]): RESULT NOT AVAILABLE Resulting Agency Comment [facility] [address] ??[facility] [phone] Isidro Heredia MD LAB - HEMATOLOGY OR DERABLES [facility] ACCOUNT BILL documented in this encounter Visit Diagnoses Not on filedocumented in this encounter
== END 2024-05-03 17:22 | disposition home or self-care (01) ==
PROVIDERS: Emergency Provider Student in an Organized Health Care Education/Training Program; PCP Family Medicine
DX: N41.0 Acute prostatitis (principal); R33.9 Retention of urine, unspecified; I10 Essential (primary) hypertension; E78.5 Hyperlipidemia, unspecified; M06.9 Rheumatoid arthritis, unspecified; M85.80 Other specified disorders of bone density and structure, unspecified site; K21.9 Gastro-esophageal reflux disease without esophagitis; Z87.440 Personal history of urinary (tract) infections; Z79.82 Long term (current) use of aspirin; Z79.899 Other long term (current) drug therapy
CPT/HCPCS: 36415; 51702; 74177; 80053; 81003; 83690; 85025; 87040; 96361; 96365; 96375; 96376; 99284; A9270; J1171; J1956; J2405; J7120; Q9967

== ENCOUNTER 2024-09-24 14:19 | Outpatient (CLI) | payer MEDICARE, OTHER, SELFPAY ==
--- NOTE | ~2024-09-24 | XR_ITS ---
EXAMINATION: XR chest 2V DATE: 09/24/2024 14:42 INDICATION: Cough TECHNIQUE: PA and lateral views of the chest were obtained. COMPARISON: Chest radiograph dated 04/26/2024 FINDINGS: The lungs are clear with no focal airspace opacities, pulmonary edema, pleural effusion or pneumothor ax. The cardiomediastinal silhouette is normal. Mild thoracic spondylosis. IMPRESSION: 1. No acute cardiopulmonary disease. Reviewed, dictated and finalized at location A.
--- OUTSIDE RECORDS SUMMARY | 2024-09-24 14:23 | XMS_ITS | Clinical Summary ---
Author Organization [facility] Address [address] [place] [address] Care Team Providers Care Crusher Operator Name Role Phone Isidro Heredia MD Unavailable [phone] Tomas Hyman MD Primary Care Provider [phone] Source Comments [facility],non-owned Affiliates and Associated Physician Practices is amultiple site organization consisting of ambulatory clinics and hospital sitesin [place], [place], [place] and [place]. This disclosure is being madepursuant to the Care Everywhere program and may not contain all information available regarding this patient. 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 Alwaysverify current medications with the patient. ZYRTEC 10 MG TABS Take 1 (one) tablet by mouth once daily Seasonal (nov Sept Active Multiple Vitamin (MULTI-VITAMIN PO) Take 1 Tab by mouth once daily Active Glucosamine-Eren droit-Vit C-Mn (GLUCOSAMINE CHONDR 1500 COMPLX PO) Take 1 Tab by mouth once daily Active Magnesium Citrate 100 MG TABS Take 1 (one) tablet by mouth every other day Active atorvastatin (LIPITOR) 40 MG tablet Take 1 (one) tablet by mouth at bedtime Active ferrous sulfate 325 (65 FE) MG tablet Take 1 (one) tablet by mouth once daily Active hydroCHLOROthiaz john (HYDRODIURIL) 25 MG tablet Take 1 (one) tablet by mouth once daily Active Multiple Vitamins-Mineral s (OCUVITE ADULT 50+ PO) Take 1 tablet by mouth every other day Active icosapent ethyl (VASCEPA) 1 g capsule Take 2 (two) capsules by mouth 2 times daily with morning and evening meal Active Potassium 99 MG tablet Take 49.5 mg by mouth 2 times daily Active carboxymeth-glyc -polysorb, PF, 0.5-1-0.5 % SOLN Instill 1 drop into both eyes 2 times daily Active TURMERIC CURCUMIN PO Take 1,000 mg by mouth once daily Active carvedilol (COREG) 12.5 MG tablet Take 1 (one) tablet by mouth 2 times daily 1 Active Golimumab (SIMPONI ARIA IV) 2 mg/kg by Intravenous route as directed Every 8 weeks Active aspirin EC (ECOTRIN) 81 MG tablet Take 1 (one) tablet by mouth once daily 90 tablet 2 Active pantoprazole EC (PROTONIX) 40 MG tablet Take 1 (one) tablet by mouth once daily 90 tablet 2 Active Additional Information Patient taking differently:40 mg Oral2 TIMES DAILY, Reported on 11/23/2023 buPROPion (Wellbutrin) 100 MG tablet Take 1 (one) tablet by mouth 2 times daily 3 Active CRANBERRY CONCENTRATE PO Take 1 capsule by mouth once daily 500 mg Active Menaquinone-7 (K2-45) 45 MCG CAPS Take 1 capsule by mouth once daily 4 Active vitamin D3 (Cholecalciferol ) 10 MCG (400 UNIT) tablet Take 1 (one) tablet by mouth once daily Active folic acid (Folvite) 1 MG tabletIndication s:High risk medication use Take 1 (one) tablet by mouth once daily 90 tablet 3 4 Active predniSONE (Deltasone) 5 MG tabletIndication s:Rheumatoid arthritis of multiple sites with negative rheumatoid factor (HCC) Take 1 (one) tablet by mouth 2 times daily 180 tablet 1 4 Active tamsulosin (Flomax) 0.4 MG capsule Take 1 (one) capsule by mouth once daily At the same time every day after a meal. Active finasteride (Proscar) 5 MG tablet Take 1 (one) tablet by mouth once daily Active zinc sulfate (Zincate) 220 (50 ZN) MG capsule Take 1 (one) capsule by mouth once daily Active tiZANidine (Zanaflex) 4 MG tabletIndication s:Chronic neck pain,Chronic back pain, unspecified back location, unspecified back pain laterality Take 1 (one) tablet by mouth 2 times daily as needed for Muscle Spasms 60 tablet 1 5 Active celecoxib (CeleBREX) 200 MG capsuleIndicatio ns:Rheumatoid arthritis of multiple sites with negative rheumatoid factor (HCC) Take 1 (one) capsule by mouth 2 times daily 180 capsule 1 5 Active gabapentin (Neurontin) 300 MG capsuleIndicatio ns:Neuropathy Take 1 (one) capsule by mouth 3 times daily 270 capsule 1 5 Active methotrexate 2.5 MG tabletIndication s:Rheumatoid arthritis of multiple sites with negative rheumatoid factor (HCC) Take 6 (six) tablets by mouth every 7 days (once a week) 72 tablet 5 Active Active Problems Problem Noted Date Diagnosed Date Triceps tendonitis 08/01/2017 Triceps tendonitis 01/04/2017 Chronic right-sided low back pain with right-wang ed sciatica 09/13/2015 Abnormal LFTs 04/07/2015 Lumbar radiculopathy 05/22/2014 Other and unspecified hyperlipidemia 07/09/2013 Pain medication agreement signed 11/06/2012 Overview (11/06/2012): 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 dated 10/14/12 Chronic pain syndrome 12/11/2011 Subacromial bursitis 09/04/2011 Anemia 08/30/2009 Osteopenia 08/24/2008 Overview (09/14/2014): Start date 08/13/2007 CT Bone Densitometry GERD (gastroesophageal reflux disease) 9 Rheumatoid arthritis of mult iple sites with negative rheumatoid factor 07/21/2008 Overview (03/07/2015): Dx start date 06/2004, Remicade 10/2004-08/02/2005 inadequate response, Orencia 09/13/2005-11/22/2005 inadequate response, Rituxan 12/06/2005-05/01/2006, Humira 08/13/2006, Methotrexate 08/2004- 02/08/2013 , Xray hands 2004 - shows scattered tiny erosions in MCP joints. Encounters Date Type Department Care Team Description 08/18/2024 Refill [facility] - Rheumatology [address] [place] [phone] Gloria Smith MD MEDICATION REFILL 07/29/2024 1:48 PM CDT - 07/29/2024 11:59 PM CDT Hospital Encounter [facility] - Rheumatology [address] [place] [address] Gloria Smith MD Rheumatology Discharge Disposition: Home or Self Care 07/23/2024 2:00 PM CDT Office Visit [facility] - Allergy [address] [place] [phone] Byron Lobo MD Recurrent infections (Primary Dx); Rheumatoid arthritis with positive rheumatoid factor, involving unspecified site; Encounter for immunization; Immunosuppression; Immunosuppression due to drug therapy; Immunodeficiency 07/23/2024 Travel 07/04/2024 Travel from Last 3 Months Immunizations Immunization Administration Dates Next Due TalkPlus primary monoval ent 12+ yr 0.3mL Purple cap 03/22/2021,07/19/2020,06/28/2020 HEP A VACCINE, ADULT 04/08/1997 INFLUENZA VACCINE 02/18/2020,03/04/2019,01/31/20 11 INFLUENZA VACCINE, CELL CULT URE, QUADR. (FLUCELVAX QUADRIVALENT; 6MO+) (CCIIV4) 02/18/2020,03/04/2019 INFLUENZA VACCINE, QUADR. 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 on file Not on file Not on file Last Filed Vital Signs Vital Sign Reading Time Taken Comments Blood Pressure 121/85 07/29/2024 2:42 PM CDT Pulse 100 07/29/2024 2:42 PM CDT Temperature 36.3 C (97.4 F) 07/29/2024 2:42 PM CDT Respiratory Rate 20 07/23/2024 2:09 PM CDT Oxygen Saturation 98% 07/23/2024 2:09 PM CDT Inhaled Oxygen Concentration - - Weight 104.8 kg (231 lb) 07/29/2024 2:42 PM CDT Height 177.8 cm (5' 10) 07/23/2024 2:09 PM CDT Body Mass Index 33.15 07/23/2024 2:09 PM CDT Plan of Treatment Upcoming Encounters Date Type Department Care Team (Late st Contact Info) Description 10/15/2024 3:00 PM CDT Office Visit [facility] - Allergy [address] [facility] [place] [phone] Byron Lobo MD [address] [place] [address] 11/18/2024 11:00 AM CDT Appointment [facility] - Rheumatology [address] [place] [address] 11/18/2024 11:40 AM CDT Office Visit [facility] - Rheumatology [address] [place] [address] Gloria Smith MD [address] [place] [address] [place] [phone] Health Maintenance Due Date Last Done Comments COLOGUARD (AGES 45-75) - COLON CA SCREENING 1962 COLON MONITORING 1962 COLONOSCOPY - COLON CA SCREENING 1962 CT COLONOGRAPHY - COLON CA SCREENING 1962 Colorectal Cancer Screening 1962 FIT - COLON CA SCREENING 1962 FLEX SIG - COLON CA SCREENING 1962 MEDICARE AWV 12 MONTHS 1962 Opioid Medication Urine Drug Screening 1962 HIV SCREENING 1977 DTAP/TDAP/TD VACCINES (1 - Tdap) 01/20/2003 01/19/2003, 01/11/1993 ZOSTER VACCINE (2 of 2) 04/14/2020 02/18/2020 Respiratory Syncytial Virus (RSV) Vaccine Pt: or over 60 yrs (1 - Risk 60-74 years 1-dose series) 2022 DEPRESSION SCREENING 04/30/2024 02/08/2024, 05/19/2022, 06/03/2021 COVID-19 VACCINE (7 - Pfizer risk 2023- season) 2024 02/18/2024, 03/12/2023, 04/04/2022, Additional history exists PNEUMOCOCCAL VACCINE 50+ (2 of 2 - PCV) 07/23/2025 07/23/2024 SCREENING FOR DIABETES 07/29/2027 , 06/03/2024, 01/29/2024, Additional history exists HEPATITIS C SCREENING Completed 02/10/2022 INFLUENZA VACCINE Completed 02/18/2024, , 04/04/2022, Additional history exists HEPATITIS B VACCINE Aged Out No longe r eligible based on patient's age to complete this topic HIB VACCINE Aged Out No longer eligi ble based on patient's age to complete this topic HPV VACCINE Aged Out No longer eligi ble based on patient's age to complete this topic MENINGOCOCCAL (Group B) VACCINE SHARED DECISION-MAKING Aged Out No longer eligible based on patient's age to complete this topic MENINGOCOCCAL GROUPS A/C/Y/W VACCINE Aged Out No longer eligible based on patient's age to complete this topic Procedures Procedure Name Priority Date/Time Associated Diagnosis Comments REF LAB-SPECIMEN STATUS REPORT Routine 07/28/2024 3:58 PM CDT Recurrent infections Immunosuppression due to drug therapy (HCC) Immunodeficiency (HCC) STREP PNEUMO AB IGG 23 SEROTYPES PANEL Routine 07/28/2024 3:58 PM CDT Recurrent infections Immunosuppression (HCC) Immunosuppression due to drug therapy (HCC) Immunodeficiency (HCC) IGE BLOOD Routine 07/28/2024 3:58 PM CDT Recurrent infections Immunosuppression (HCC) Immunosuppression due to drug therapy (HCC) Immunodeficiency (HCC) IMMUNOGLOBULINS IGG/IGM/IGA PANEL Routine 07/28/2024 3:58 PM CDT Recurrent infections Immunosuppression (HCC) Immunosuppression due to drug therapy (HCC) Immunodeficiency (HCC) CBC W AUTO DIFFERENTIAL Routine 07/29/19 3:58 PM CDT Recurrent infections Rheumatoid arthritis with positive rheumatoid factor, involving unspecified site (HCC) Immunosuppression (HCC) Immunosuppression due to drug therapy (HCC) Immunodeficiency (HCC) T+B+NATURAL KILLER CELLS PROFILE Routine 07/28/2024 2:24 PM CDT Recurrent infections Immunosuppression (HCC) Immunosuppression due to drug therapy (HCC) Immunodeficiency (HCC) C-REACTIVE PROTEIN Routine 07/28/2024 1: 55 PM CDT Rheumatoid arthritis of multiple sites with negative rheumatoid factor (HCC) ERYTHROCYTE SEDIMENTATION RATE Routine 07/28/2024 1:55 PM CDT Rheumatoid arthritis of multiple sites with negative rheumatoid factor (HCC) COMPREHENSIVE METABOLIC PANEL Routine 07/28/2024 1:55 PM CDT Rheumatoid arthritis of multiple sites with negative rheumatoid factor (HCC) CBC W AUTO DIFFERENTIAL Routine 07/29/19 25 1:55 PM CDT Rheumatoid arthritis of multiple sites with negative rheumatoid factor (HCC) HEPATITIS SCREEN ACUTE ([facility]) Routine 02/10/2022 9:46 AM CDT Rheumatoid arthritis of multiple sites with negative rheumatoid factor Fatigue, unspecified type from Last 3 Months or Most Recently Relevant to Health Maintenance Results * (ABNORMAL) STREP PNEUMO AB IGG 23 SEROTYPES PANEL (07/28/2024 3:58 PM CDT) Pneumococcal Serotype 1 Antibody IgG 1.5 >1.3 ug/mL [facility] INSURANCE BILL Pneumococcal Serotype 3 Antibody IgG <0.1(L) >1.3 ug/mL [facility] INSURANCE BILL Pneumococcal Serotype 4 Antibody IgG 0.4(L) >1.3 ug/mL [facility] INSURANCE BILL Pneumococcal Serotype 8 Antibody IgG <0.3(L) >1.3 ug/mL [facility] INSURANCE BILL Pneumococcal Serotype 9N Antibody IgG 0.8(L) >1.3 ug/mL [facility] INSURANCE BILL Pneumococcal Serotype 12F Antibody IgG <0.1(L) >1.3 ug/mL [facility] INSURANCE BILL Pneumococcal Serotype 14 Antibody IgG 2.0 >1.3 ug/mL [facility] INSURANCE BILL Pneumococcal Serotype 17 Antibody IgG 0.4(L) >1.3 ug/mL [facility] INSURANCE BILL Pneumococcal Serotype 19F Antibody IgG 0.7(L) >1.3 ug/mL [facility] INSURANCE BILL Pneumococcal Serotype 2 Antibody IgG 1.1(L) >1.3 ug/mL [facility] INSURANCE BILL Pneumococcal Serotype 20 Antibody IgG 1.1(L) >1.3 ug/mL [facility] INSURANCE BILL Pneumococcal Serotype 22 Antibody IgG 1.0(L) >1.3 ug/mL [facility] INSURANCE BILL Pneumococcal Serotype 23F Antibody IgG 1.9 >1.3 ug/mL [facility] INSURANCE BILL Pneumococcal Serotype 6B Antibody IgG 0.6(L) >1.3 ug/mL [facility] INSURANCE BILL Pneumococcal Serotype 34 Antibody IgG 0.9(L) >1.3 ug/mL [facility] INSURANCE BILL Pneumococcal Serotype 43 Antibody IgG 1.2(L) >1.3 ug/mL [facility] INSURANCE BILL Pneumococcal Serotype 5 Antibody IgG <0.1(L) >1.3 ug/mL [facility] INSURANCE BILL Pneumococcal Serotype 51 Antibody IgG 0.2(L) >1.3 ug/mL [facility] INSURANCE BILL Pneumococcal Serotype 54 Antibody IgG 1.5 >1.3 ug/mL [facility] INSURANCE BILL Pneumococcal Serotype 18C Antibody IgG 0.8(L) >1.3 ug/mL [facility] INSURANCE BILL Pneumococcal Serotype 19a Antibody IgG 0.9(L) >1.3 ug/mL [facility] INSURANCE BILL Pneumococcal Serotype 9V Antibody IgG 0.4(L) >1.3 ug/mL [facility] INSURANCE BILL Pneumococcal Serotype 70 Antibody IgG 0.5(L) >1.3 ug/mL [facility] INSURANCE BILL Comment: *This test was developed and its performance characteristics determined by [employer]. It has not been cleared or approved by the U.S. Food and Drug Administration. FLAG Interpretation: A = Abnormal, H = High, L = Low Blood BLOOD SPECIMEN / Unknown 07/28/2024 3:58 PM CDT 07/28/2024 Narrative [facility] INSURANCE BILL - 08/01/2024 7:09 AM CDT Performed at: 01 - [facility] [address] [place] [address], [facility] [address], [place] [id number] Auxiliary Operator: ITZEL Mckinney PhD, Phone: [phone] Byron Lobo MD LAB - CHEMISTRY ORDERABLES Carmel l Result Performing Organization Address City/State/[facility] Co de Phone Number [facility] INSURANCE BILL [address] [place] [address] * REF LAB-SPECIMEN STATUS REPORT (07/28/2024 3:58 PM CDT) Specimen Status Report Comment [facility] INSURANCE BILL Comment: ABN Option 3 ABN Option 3 One or more tests were removed at the request of the patient and may not be represented on this report. As a result, some or all of the tests originally requested may not have been performed or may be reported separately. Please contact your patient regarding any necessary follow-up. 07/28/2024 3:58 PM CDT 07/28/2024 Narrative [facility] INSURANCE BILL - 07/29/2024 7:09 AM CDT Performed at: 01 - [facility] [address] [facility], [place], [place] [id number] Auxiliary Operator: Camilo Latif PhD, Phone: [phone] Byron Lobo MD LAB - CHEMISTRY ORDERABLES Carmel cierra Result [facility] INSURANCE BILL [address] [place] [address] * CBC WITH DIFFERENTIAL (07/28/2024 3:58 PM CDT) Only the most recent of2 resultswithin the time period is included. WBC 8.2 3.4 - 10.8 x10E3/uL [facility] INSURANCE BILL RBC 4.45 4.14 - 5.80 x10E6/uL [facility] INSURANCE BILL Hemoglobin 13.7 13.0 - 17.7 g/dL [facility] INSURANCE BILL Hematocrit 40.9 37.5 - 51.0 % [facility] INSURANCE BILL MCV 92 79 - 97 fL [facility] INSURANCE BILL MCH 30.8 26.6 - 33.0 pg [facility] INSURANCE BILL MCHC 33.5 31.5 - 35.7 g/dL [facility] INSURANCE BILL RDW 14.0 11.6 - 15.4 % [facility] INSURANCE BILL Platelet Count 190 150 - 450 x10E3/uL [facility] INSURANCE BILL Granulocytes % 55 Not Estab. % [facility] INSURANCE BILL Lymphocytes % 36 Not Estab. % [facility] INSURANCE BILL Monocytes % 6 Not Estab. % [facility] INSURANCE BILL Eosinophils % 2 Not Estab. % [facility] INSURANCE BILL Basophils % 1 Not Estab. % [facility] INSURANCE BILL Granulocytes Absolute 4.5 1.4 - 7.0 x10E3/uL [...] 0.0 - 0.1 x10E3/uL [facility] INSURANCE BILL Blood BLOOD SPECIMEN / Unknown 07/28/2024 3:58 PM CDT 07/28/2024 Narrative [facility] INSURANCE BILL - 07/29/2024 7:09 AM CDT Performed at: [address] [place] [id number] Auxiliary Operator: Camilo Latif PhD, Phone: [phone] Byron Lobo MD LAB - HEMATOLOGY ORDERABLES Fin al Result Performing Organization Address [facility] de Phone Number [facility] INSURANCE BILL [address] [place] [address] * IMMUNOGLOBULINS IGG/IGM/IGA PANEL (07/28/2024 3:58 PM CDT) IgG Quantitative 1,217 603 - 1,613 mg/dL [facility] INSURANCE BILL IgA Quantitative 427 61 - 437 mg/dL [facility] INSURANCE BILL IgM Quantitative 65 20 - 172 mg/dL [facility] INSURANCE BILL Blood BLOOD SPECIMEN / Unknown 07/28/2024 3:58 PM CDT 07/28/2024 Narrative [facility] INSURANCE BILL - 07/29/2024 7:09 AM CDT Performed at: [address] [place] [id number] Auxiliary Operator: Camilo Latif PhD, Phone: [phone] Byron Lobo MD LAB - CHEMISTRY ORDERABLES Carmel l Result Performing Organization Address [facility] Co de Phone Number [facility] INSURANCE BILL [address] [place] [address] * IGE BLOOD (07/28/2024 3:58 PM CDT) IgE 37 6 - 495 IU/mL [facility] INSURANCE BILL Blood BLOOD SPECIMEN / Unknown 07/28/2024 3:58 PM CDT 07/28/2024 Narrative [facility] INSURANCE BILL - 08/07/2024 7:09 AM CDT Performed at: [address] [place] [address] [id number] Auxiliary Operator: Monica Box MD, Phone: [phone] Byron Lobo MD LAB - CHEMISTRY ORDERABLES Carmel norton Result [facility] INSURANCE BILL [address] [place] [address] * (ABNORMAL) T+B+NATURAL KILLER CELLS PROFILE (07/28/2024 2:24 PM CDT) Abs.CD19+ Lymphs 226 12 - 645 /uL [facility] INSURANCE BILL % CD 19 Positive Lymphocyte 7.3 3.3 - 25.4 % [facility] INSURANCE BILL Absolute CD 3 2,514(H) 622 - 2,402 /uL [facility] INSURANCE BILL % CD3 Positive Lymphocyte 81.1 57.5 - 86.2 % [facility] INSURANCE BILL Absolute CD 4 Buna 1,172 359 - 1,519 /uL [facility] INSURANCE BILL % CD 4 Positive Lymphocyte 37.8 30.8 - 58.5 % [facility] INSURANCE BILL Absolute CD 8 Suppressor 1,544(H) 109 - 897 /uL [facility] INSURANCE BILL % CD8 Positive Lymphocyte 49.8(H) 12.0 - 35.5 % [facility] INSURANCE BILL CD4/CD8 Ratio 0.76(L) 0.92 - 3.72 [facility] INSURANCE BILL AB NK CD 56/16 338 24 - 406 /uL [facility] INSURANCE BILL % NK CD56/16 10.9 1.4 - 19.4 % [facility] INSURANCE BILL WBC 8.6 3.4 - 10.8 x10E3/uL [facility] INSURANCE BILL RBC 4.42 4.14 - 5.80 x10E6/uL [facility] INSURANCE BILL Hemoglobin 13.7 13.0 - 17.7 g/dL [facility] INSURANCE BILL Hematocrit 40.3 37.5 - 51.0 % [facility] INSURANCE BILL MCV 91 79 - 97 fL [facility] INSURANCE BILL MCH 31.0 26.6 - 33.0 pg [facility] INSURANCE BILL MCHC 34.0 31.5 - 35.7 g/dL [facility] INSURANCE BILL RDW 14.1 11.6 - 15.4 % [facility] INSURANCE BILL Platelet Count 187 150 - 450 x10E3/uL [facility] INSURANCE BILL Granulocytes % 55 Not Estab. % [facility] INSURANCE BILL Lymphocytes % 36 Not Estab. % [facility] INSURANCE BILL Monocytes % 6 Not Estab. % [facility] INSURANCE BILL Eosinophils % 2 Not Estab. % [facility] INSURANCE BILL Basophils % 1 Not Estab. % [facility] INSURANCE BILL Granulocytes Absolute 4.8 1.4 - 7.0 x10E3/uL [facility] INSURANCE BILL Lymphocytes Absolute 3.1 0.7 - 3.1 x10E3/uL [facility] INSURANCE BILL Monocytes Absolute 0.5 0.1 - 0.9 x10E3/uL [facility] INSURANCE BILL Eosinophils Absolute 0.2 0.0 - 0.4 x10E3/uL [facility] INSURANCE BILL Basophils Absolute 0.0 0.0 - 0.2 x10E3/uL [facility] INSURANCE BILL Immature Granulocytes 0 Not Estab. % [facility] INSURANCE BILL Immature Granulocytes Absolute 0.0 0.0 - 0.1 x10E3/uL [facility] INSURANCE BILL Blood BLOOD SPECIMEN / Unknown 07/28/2024 2:24 PM CDT 07/28/2024 Narrative [facility] INSURANCE BILL - 07/29/2024 3:09 PM CDT Performed at: [facility] [id number] Auxiliary Operator: Camilo Latif PhD, Phone: [phone] Byron Lobo MD LAB - HEMATOLOGY ORDERABLES Fin al Result [facility] INSURANCE BILL [address] [place] [address] * C-REACTIVE PROTEIN (07/28/2024 1:55 PM CDT) [facility] C-Reactive Protein <1 0 - 10 mg/L [facility] INSURANCE BILL Blood BLOOD SPECIMEN / Unknown 07/28/2024 1:55 PM CDT 07/28/2024 Narrative [facility] INSURANCE BILL - 07/29/2024 7:09 AM CDT Performed at: [facility] [id number] Auxiliary Operator: Camilo Latif PhD, Phone: [phone] Gloria Smith MD LAB - CHEMISTRY ORDERABLES Final Result Performing Organization Address [facility] Co de Phone Number [facility] INSURANCE BILL [address] [place] [address] * ERYTHROCYTE SEDIMENTATION RATE (07/28/2024 1:55 PM CDT) [facility] Erythrocyte Sedimentation Rate Westergren 15 0 - 30 mm/hr [facility] INSURANCE BILL Blood BLOOD SPECIMEN / Unknown 07/28/2024 1:55 PM CDT 07/28/2024 Narrative [facility] INSURANCE BILL - 07/29/2024 8:12 AM CDT Performed at: [address] [id number] Auxiliary Operator: Camilo Latif PhD, Phone: [phone] Gloria Smith MD LAB - HEMATOLOGY ORDERABLES Carmel l Result Performing Organization Address [facility] de Phone Number [facility] INSURANCE BILL [address] [place] [address] * (ABNORMAL) COMPREHENSIVE METABOLIC PANEL (07/28/2024 1:55 PM CDT) [facility] Glucose 100(H) 70 - 99 mg/dL [facility] INSURANCE BILL BUN 19 8 - 27 mg/dL [facility] INSURANCE BILL Creatinine 1.16 0.76 - 1.27 mg/dL [facility] INSURANCE BILL eGFR by CKD-EPI 72 >59 mL/min/1.7 3 [facility] INSURANCE BILL BUN/Creatinine Ratio 16 10 - 24 [facility] INSURANCE BILL Sodium 137 134 - 144 mmol/L [facility] INSURANCE BILL Potassium 4.4 3.5 - 5.2 mmol/L [facility] INSURANCE BILL Chloride 100 96 - 106 mmol/L [facility] INSURANCE BILL CO2 20 20 - 29 mmol/L [facility] INSURANCE BILL Calcium 9.6 8.6 - 10.2 mg/dL [facility] INSURANCE BILL Protein Total 7.2 6.0 - 8.5 g/dL [facility] INSURANCE BILL Albumin 4.5 3.9 - 4.9 g/dL [facility] INSURANCE BILL Globulin Total 2.7 1.5 - 4.5 g/dL [facility] INSURANCE BILL Bilirubin Total 0.7 0.0 - 1.2 mg/dL [facility] INSURANCE BILL Alkaline Phosphatase 69 44 - 121 IU/L [facility] INSURANCE BILL AST 24 0 - 40 IU/L [facility] INSURANCE BILL ALT 15 0 - 44 IU/L [facility] INSURANCE BILL Blood BLOOD SPECIMEN / Unknown 07/28/2024 1:55 PM CDT 07/28/2024 Narrative [facility] INSURANCE BILL - 07/29/2024 7:09 AM CDT Performed at: - [address] [id number] Auxiliary Operator: Camilo Latif PhD, Phone: [phone] Gloria Smith MD LAB - CHEMISTRY ORDERABLES Final Result Performing Organization Address [facility] Co de Phone Number [facility] INSURANCE BILL [address] [place] [address] * HEPATITIS SCREEN ACUTE ([facility]) (02/10/2022 9:46 [...] Resulting Agency Comment Lab Testing performed at: [place] [address]iy[address] [place] [id number] Gloria Smith MD LAB - CHEMISTRY ORDERABLES Final Result Performing Organization Address City/[facility] Co de Phone Number [facility] INSURANCE BILL [address] [place] [address] from Last 3 Months or Most Recently Relevant to Health Maintenance Insurance MEDICARE Member Subscriber Plan / Payer ( fective 2024-Present) Name:Chalino Casey Relation to Subscriber:Self Name:Chalino Casey Payer ID:[id number] (NAIC) Group ID:Not on file Type:/ Address: [place] [id number] [facility] * Guarantor: CHALINO CASEY Account Type Relation to Patient Date of Phone Billing Address Personal/Family [address] [place] [address] [place] [address] [place] [address] Care Teams Crusher Operator Relationship Specialty Start Date End Date Tomas Hyman MD [address] [place] [address] PCP - General Family Medicine 09/05/18 Isidro Heredia MD Rheumatology 02/09/11
--- OUTSIDE RECORDS SUMMARY | 2024-09-24 14:23 | XMS_ITS | Continuity of Care Document ---
Author Organization [facility] Address [address] [place] [address] [place] [address] Phone Care Team Providers Care Manager Pe Name Role Phone Lupis Pena Unavailable Unavailable Procedures Procedure Date Visual Field Examination(s) Eye Exam & Treatment Visual Field Examination(s) Office/outpatient Visit, Est Visual Field Examination(s) Eye Exam & Treatment Refraction Advance Directives Directive Yes / No Effective Date File Name No Information Encounters Encounter Description Practice Location Reason(s) For Visit Diagnoses Date Provider Providers Copied on Encounter [facility], [address] [place] [address] [address], [place], [place], [id number], tel:[phone] [facility] No Information Jun- 0 Becky Baugh. [address] , [address], [place], [address], [place]. tel:[phone] Referring Provider: Lupis Palafox, [address], [place], [place], [facility]. tel:[phone] [facility], [address] [place] [address] [address], [place], [place], [id number], tel:[phone] [facility] No Information Jun- 9-201 0 Becky Baugh. [address] [facility] , [address], [place], [address], [place]. tel:[phone] [facility], [address] [place] [address] [address], [place], [place], [id number], tel:[phone] [facility] No Information b-0 8-201 0 Becky Baugh. [address] , [address], [place], [place], [facility], . tel:[phone] Referring Provider: Lupis Palafox, [address], [place], [place], [facility]. tel:[phone] Office/outpat ient Visit, [facility], [address] [place] [address] [address], [place], [place], [id number], tel:[phone] [facility] No Information 9 Becky Hoff [address] [facility] [facility] , [address], [place], [place], [facility], . tel:[phone] [facility], [address] [place] [address] [address], [place], [place], [address], tel:[phone] [facility] No Information Mar-0 2-200 8 Becky Baugh. [address] [facility] , [address], [place], [place], [facility], . tel:[phone] Referring Provider: Luips Palafox, [address], [place], [facility]. tel:[phone] [facility], [address] [place] [address] [address], [place], [place], [address], tel:[phone] [facility] No Information 200 8 Becky Baugh. [address] [facility] , [address], [place], [place], [facility], . tel:[phone] Family History Family Member Type Diagnosis Age [...]
--- OUTSIDE RECORDS SUMMARY | 2024-09-24 14:23 | XMS_ITS | Encounter Summary ---
Author Organization [facility] Address [address] [facility] [place] [address] Care Team Providers Care Commutator Presser Name Role Phone Nolberto Nicole MD Primary Care Provider [phone] Isidro Heredia MD Unavailable [phone] Tomas Hyman MD Primary Care Provider [phone] Tomas Hyman MD Primary Care Provider [phone] Encounter Details Date Type Department Care Team (Late st Contact Info) Description 08/18/2008 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 Gender Identity Not on file Sexual Orientation Not on file documented as of this encounter Plan of Treatment Upcoming Encounters Date Type Department Care Team (Late Contact Info) Description 10/15/2024 3:00 PM CDT Office Visit [facility] - Allergy [address] [facility] [place] [phone] Byron Lobo MD [address] [place] [phone] 11/18/2024 11:00 AM CDT Appointment [facility] - Rheumatology [address] [place] [phone] 11/18/2024 11:40 AM CDT Office Visit [facility] - Rheumatology [address] [place] [address] Gloria Smith MD [address] [place] [phone] documented as of this encounter Visit Diagnoses Not on filedocumented in this encounter Care Teams Commutator Presser Relationship Specialty Start Date End Date Nolberto Nicole MD PCP - General 07/21/08 12/30/13 Tomas Hyman MD [address] [facility] [address] [place] [address] PCP - General Family Medicine 12/31/13 05/09/18 Tomas Hyman MD [address] [facility] [address] [place] [address] PCP - General Family Medicine 09/05/18 Isidro Heredia MD Rheumatology 02/09/11 documented as of this encounter
--- OUTSIDE RECORDS SUMMARY | 2024-09-24 14:24 | XMS_ITS | CONTINUITY OF CARE DOCUMENT ---
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 DRAWER wegoby not covered Rheumatoid arthritis active Bladimir [...] cxr, neg rhc 15 completed - Bladimir Snaders MD r/o PVD;neg arvin completed - Bladimir Sanders MD Anemia, iron deficiency active Bladimir bowden MD CAD;neg carotid duplex active Bladimir Sanders [...] and had vaccine active Bladimir Sanders MD ENCOUNTERS Date Type Provider Location Encounter Diag nosis - In-person encounter Office Visit Bladimir Sanders MD [facility] Obesity - In-person encounter Office Visit Bladimir Sanders MD [facility] Obesity - In-person encounter Office Visit Bladimir Sanders MD [facility] Obesity - In-person encounter Office Visit Bladimir Sanders MD [facility] CAD;neg carotid duplex - In-person encounter Office Visit Bladimir Sanders MD [facility] HypokalemiaExposure to SARS-associated coronavirus;neg igg and had vaccine - In-person encounter Office Visit Bladiimr Sanders MD [facility] Exposure to SARS-associated coronavirus;neg igg and had vaccine - In-person encounter Office Visit Bladimir Sanders MD [facility] HTN essential;neg duplexAortic root dilatationr/o PVD;neg abiScreeningPREDIABETESAsthmaDyspnea on exertionMitral insufficiency, mild - In-person encounter Office Visit Bladimir Sanders MD [facility] COPD;DUE TO RA?, neg cxr, neg rhc 15Anemia, iron deficiencySleep apnea - In-person encounter Office Visit Bladimir Sanders MD [facility] Obesityr/o Ischemia;ABNL NUC 15, 20% rca 15Aortic root dilatationDiastolic dysfunctionAnemia, iron deficiencyNerve painSleep apneaAdenomatous colonic polyp - In-person encounter Office Visit Bladimir Sanders MD [facility] ObesityScreening - In-person encounter Office Visit Bladimir Sanders MD [facility] ObesitySinus tachycardia;nml tsh, due to pain,Aortic root dilatationMitral regurgitation, mildAnemia, iron deficiencyCAD;neg carotid duplex - In-person encounter Office Visit Bladimir Sanders MD [facility] Hyperlipidemia;NEG CRP and neg lpaBACK PAIN;sciatica sees scodary, on med rxSinus tachycardia;nml tsh, due to pain,HTN essential;neg duplexr/o Ischemia;ABNL NUC 15, 20% rca 15Shortness of breathAortic root dilatationDiastolic dysfunctionMitral regurgitation, mildCOPD;DUE TO RA?, neg cxr, neg rhc 15r/o PVD;neg arvin - In-person encounter Office Visit Bladimir Sanders MD [facility] ObesityRheumatoid arthritisHyperlipidemia;NEG CRP and neg lpaHypertriglyceridemiaDiverticulosis, [...] blood pressure, systolic 132 mm[Hg] Tab moises Kasson respiratory rate E&M 12 /min Jenelle León height E&M 70 [in_i] Jenelle León Body Mass Index (Ratio) 31.99 kg/m2 Esther Sanders MD oxygen saturation, oximetry 99 % Jenelle Kasson blood pressure, cuff size regular Javon witt Kasson blood pressure, diastolic 90 mm[Hg] Javon witt Kasson blood pressure, systolic 142 mm[Hg] Tab moises Kasson pulse rate 89 /min Jenelle Kasson weight E&M 223 [lb_av] Jenelle Kasson respiratory rate E&M 12 /min Jenelle León height E&M 70 [in_i] Jenelle Kasson Body Mass Index (Ratio) 29.12 kg/m2 Esther [...] Eryn Van weight E&M 214.0 [lb_av] Eryn Walton height E&M 70 [in_i] Eryn Van Body [...] Garcia Body Mass Index (Ratio) 36.87 kg/m2 [facility] E&M 70 [in_i] Va [...] LinkLogic 0-149 cholesterol, serum 134 mg/dL [employer] 181-060 2975/01/ 04 ferritin, serum 163 ng/mL [employer] 30-400 [...] iron binding capacity, unsaturated 134 ug/dL [employer] 151-071 5359/01/ 04 iron binding capacity, total 293 ug/dL [employer] 459-686 6067/05/ 31 pro brain natriuretic peptide 30.4 pg/mL [...] LinkLogic 4.0 - 6.0 coagulation managed by Eile Vega RN international normalized ratio (INR) 0.9 [...] celecoxib 200 mg capsule active Clare Fallgllaura THREAD DRAWER naltrexone 50 mg tablet completed Take 1/2 tablet by mouth once a day 12 tab by mouth daily, if not effective after 1 week may increase to 1/2 tab twice daily 06/10 - 01/22 Clare Caballero THREAD DRAWER icosapent ethyl 1 gram capsule completed Take [...] completed 2 capsules by mouth twice daily [place] Coupon Code: [facility]# [id number], PCN# CN, GRP# [id number], ID# [id number] 06/05 - 11/15 Paula Sadi AV-PHOS 250 [...] history of marijuana use no Clare Ventimiglia THREAD DRAWER drug use no Clare Ventimig matilde THREAD DRAWER alcohol use no Clare Ventimig matilde [facility] smoking status Never smoker Clare Ventim iglia THREAD DRAWER alcohol use no Bladimir Gomez smoking status [...] Management Plan continue current therapy Clare Caballero THREAD DRAWER HRA, CV Assess/Plan, Angina (inactive) Management Plan [...] party ID [place] Medicare [id number] RICARDO [facility] [place] [id number] ADVANCE DIRECTIVES Name Date DISCUSSED - NO DECISION MADE TREATMENT PLAN Date Name Performer [id number],S, t ried diet topamz adn adepix in past, did not want wellbuona Bladimir Sandres MD [id number],S, Bladimir bowden MD [id number],S, s evere T he patient is using CPAP on a regular basis. The patient has been benefiting from therapy and should continue use. Bladimir Sanders MD [id number],S, n eg rpr and b`12 Bladimir Sanders MD [id number],S, Bladimir bowden MD [id number],S, Bladimir bowden MD [id number],S, p ft nromal, nml uacr, ml a1 ,neg arvin V IT d OK Bladimir Sanders MD [id number],S, H is updated medication list for this problem includes: Coreg 12.5 Mg Tablet (Carvedilol) ..... Take 1 tablet by mouth twice daily Hydrochlorothiazide 25 Mg Tablet (Hydrochlorothiazide) ..... 1 tablet by mouth once a day Aspirin 81 Mg Tablet,delayed Release (dr/ec) (Aspirin) ..... 1 tablet by mouth once a day BP today: 106/69 P rior BP: 125/77 (11/17/2021) Bladimir Sanders MD [id number],S, p ro 20 Bladimir Sanders MD [id number],S, n uc 18 neg, rca 20% 2014, cor score 338 Bladimir Tommy LINDER [id number],B, i alireza correced, had colon, b12 and folate ok Bladimir Sanders MD [id number],S, Bladimir Jacobs kal LINDER [id number],S, Bladimirhemal Jacobs a [id number],S, t ried diet topamz adn adepix in past, did not want wellbuona Bladimir Sanders MD [id number],S, p ft nromal, nml uacr, ml a1 ,neg arvin V IT d OK Bladimir Sanders MD [id number],BEstherey Arlene bowden MD [id number],S, Bladimir Serot a [id number],S, Bladimir Serot a [id number],B, Bladimir Serot a [id number],C, H is updated medication list for this problem includes: Hydrochlorothiazide 25 Mg Oral Tablet (Hydrochlorothiazide) ..... One tab daily Aspirin Adult Low Dose 81 Mg Oral Tablet Delayed Release (Aspirin) ..... One tab by mouth daily Coreg 12.5 Mg Oral Tablet (Carvedilol) ..... One tab. twice daily BP today: 125/77 P rior BP: 114/70 (10/28/2020) Bladimir Sanders MD [id number],S, p ro 20 Bladimir Sanders MD [id number],B, i alireza correced, had colon, b12 and folate ok Bladimir Sanders MD [id number],S, n uc 18 neg, rca 20% 2014, cor score 338 Bladimir Sanders MD [id number],C,n uc 18 neg, rca 20% 2015, cor score 338 Bladimir Sanders MD [id number],S, t ried diet topamz adn adepix in past, did not want wellbuona Bladimir Sanders MD [id number],B, Bladimir bowden MD [id number],B, Bladimir bowden MD [id number],S, H is updated medication list for this problem includes: Hydrochlorothiazide 25 Mg Oral Tablet (Hydrochlorothiazide) ..... One tab daily Aspirin Adult Low Dose 81 Mg Oral Tablet Delayed Release (Aspirin) ..... One tab by mouth daily Coreg 12.5 Mg Oral Tablet (Carvedilol) ..... One tab. twice daily BP today: 114/70 P rior BP: 136/77 (10/16/2019) Bladimir Sanders MD [id number],S, p ro 20 Bladimir Sanders MD [id number],S, p ft nromal, nml uacr, ml a1 and probnp,neg arvin B 12 FOLATRE AND VIT d OK Bladimir Sanders MD [id number],S, s evere T he patient is using CPAP on a regular basis. The patient has been benefiting from therapy and should continue use. Bladimir Sanders MD [id number],SBladimir MD [id number],SBladimir MD [id number],S, n uc 18 neg, 20% rca 15 Bladimir Sanders MD [id number],SBladimir MD [id number],B, i alireza correced, had colon, b12 and folate ok Bladimir Sanders MD Cardiology:continued weight loss c ould not tolerate naltrexone d/t GI upset W ill try GLP-1 Clare Ventimiglia THREAD DRAWER Cardiology:remains m ild E F of 55% [facility] Cardiology:LDL 64 on last labs c rohith statin H is updated medication list for this problem includes: Icosapent Ethyl 1 Gram Capsule (Icosapent ethyl) ..... Take 2 capsules twice a day Atorvastatin 40 Mg Tablet (Atorvastatin) ..... Take 1 tablet by mouth once a day [facility] Cardiology:trig 141 on last labs R emains on vacepa H is updated medication list for this problem includes: Icosapent Ethyl 1 Gram Capsule (Icosapent ethyl) ..... Take 2 capsules twice a day Atorvastatin 40 Mg Tablet (Atorvastatin) ..... Take 1 tablet by mouth once a day [facility] Cardiology:EF 55% on last echo n o new symptoms [facility] Cardiology:BP 132/78 today in office c rohith present meds His updated medication list for this problem includes: Hydrochlorothiazide 25 Mg Tablet (Hydrochlorothiazide) ..... 1 tablet by mouth once a day Coreg 12.5 Mg Tablet (Carvedilol) ..... Take 1 tablet by mouth twice daily Aspirin 81 Mg Tablet,delayed Release (dr/ec) (Aspirin) ..... 1 tablet by mouth once a day [facility] :pro 20 ef 54 Bladimir [...] MD Cardiology Bladimir Sanders MD Cardiology: t rironny ingram topamz adn adepix in past, did not want wellbuona Bladimir Sanders MD Cardiology Bladimir Sanders MD Cardiology: s evere T he patient is using [...] 338 Bladimir Sanders MD Cardiology: tae lay isidraced, had colon, b12 and folate ok Bladimir Sanders MD Cardiology Bladimir Sanders MD Cardiology Bladimir Sanders MD Cardiology: t ried diet yvonnejorinayan adn adepix in past, did not want [...] Sanders MD Cardiology: t ried diet cedric seamann adepix in past, did not want welltriston [...] mouth twice daily universal coupon code: bin# [id number], pcn# cn, grp# ecvascepa, id# [id number] Atorvastatin Calcium 40 Mg Oral Tablet (Atorvastatin [...] twice daily Josefa Nolasco NP Cardiology:Repeat echo Josefasheila claros NP Cardiology:Repeat echo Josefa claros NP [...] MD Cardiology Follow up : i alireza minerced, had colon, b12 and [...] tab. twice daily Orders: I NR Strip (CPT-20570) Bladimir Sanders MD New Patient: O rders: H olter Monitor 24 Hr (CPT-35521) C omplete Echo (CPT-72041) S TR - Adenosine (89262) Bladimir Sanders MD New Patient: O rders: H olter Monitor 24 Hr (CPT-93342) C omplete Echo (CPT-09947) S TR - Adenosine (41225) F ull PFT (*) Bladimir Sanders MD [...] AND TOTAL IRON BINDING CAPACITY DLCO - 08763 FRC - 73413 FVC - 87111 Complete Echo ZIO Holter Sleep Study Home HEMOGLOBIN A1c PROBNP, N TERMINAL DLCO - 44992 FRC - 36229 FVC - 44637 RPR (MONITOR) W/REFL TITER IRON AND TOTAL [...] ower EX INR Strip DLCO Order - 51019 FRC Order - 03679 FVC Order - 91320 Full PFT STR - Adenosine Complete Echo [...] MD complete d FVC / MVV - 55392 Bladimir Sanders MD c ompleted FRC - 98089 Bladimir Sanders MD complet ed SpO2 w/o 6min walk/titration Bladimir Sanders MD completed DLCO - 50224 Bladimir Sanders MD comple loli EKG Bladimir Sanders MD complete d SNOMED-CT: 204355781 744868 Current Medications Documented Bladimir Sanders MD completed FVC / MVV with bronchodilator - 40553 Bladimir Sanders MD completed BLOOD COUNT HEMOGLOBIN Bladimir Sanders MD completed FRC - 17748 Bladimir Sanders MD complet ed SpO2 - 04396 Bladimir Sanders MD comple loli DLCO - 14515 Bladimir Sanders MD comple loli GABBY Sanders MD c ompleted SNOMED-CT: 075855256 713802 Current Medications Documented Bladimir Sanders MD completed EKG Bladimir Sanders MD complete d SNOMED-CT: 848667091 832325 Current Medications Documented Bladimir Sanders MD completed EKG Bladimir Sanders MD complete d BLOOD COUNT HEMOGLOBIN Bladimir Sanders MD completed EKG Bladimir Sanders MD complete d
== END 2024-09-24 14:20 | disposition home or self-care (01) ==
PROVIDERS: PCP Family Medicine; Visit Provider Family Medicine
DX: R05.9 Cough, unspecified (principal)
CPT/HCPCS: 71046

== ENCOUNTER 2025-01-26 01:32 | Day surgery (SDC) | payer MEDICARE, OTHER, SELFPAY ==
--- OUTSIDE RECORDS SUMMARY | 2009-07-26 09:45 | XMS_ITS | Continuity of Care Document ---
Author Organization [facility] Address [address] [place] [address] [place] [address] Phone Care Team Providers Care Marine Extension Agent Name Role Phone Lupis Pena Unavailable Unavailable Procedures Procedure Date Visual Field Examination(s) Eye Exam & Treatment Visual Field Examination(s) Office/outpatient Visit, Est Visual Field Examination(s) Eye Exam & Treatment Refraction Advance Directives Directive Yes / No Effective Date File Name No Information Encounters Encounter Description Practice Location Reason(s) For Visit Diagnoses Date Provider Providers Copied on Encounter [facility], [address] [place] [address] [address], [place], [place], [id number], tel:[phone] [facility] No Information Jun- 0 Becky Baugh. [address] , [address], [place], [address], [place]. tel:[phone] Referring Provider: Lupis Palafox, [address], [place], [place], [facility]. tel:[phone] [facility], [address] [place] [address] [address], [place], [place], [id number], tel:[phone] [facility] No Information Jun- 9-201 0 Becky Baugh. [address] , [address], [place], [address], [place]. tel:[phone] [facility], [id number] [place] [address] [address], [place], [place], [id number], tel:[phone] [facility] No Information b-0 8-201 0 Becky Baugh. [address] , [address], [place], [facility], . tel:[phone] Referring Provider: Lupis Palafox, [address], [place], [facility]. tel:[phone] Office/outpat ient Visit, [facility] [id number] [place] [address] [address], [place], [place], [id number], tel:[phone] [facility] No Information 9 Becky Hoff [address] , [address], [place], [facility], . tel:[phone] [facility], [address] [place] [address] [address], [place], [place], [id number], tel:[phone] [facility] No Information Mar-0 2-200 8 Becky Baugh. [address] , [address], [place], [facility], . tel:[phone] Referring Provider: Lupis Palafox, [address], [place], [facility]. tel:[phone] [facility], [address] [place] [address] [address], [place], [place], [id number], tel:[phone] [facility] No Information 200 8 Becky Baugh. [address] , [address], [place], [facility], . tel:[phone] Family History Family Member Type Diagnosis Age At Onset No Information Payers Payer name Insurance type Covered republican ID Authoriza tion(s) No Information Social History Type Description Quantity Date Captured Comments Sex Male Smoking Status No Information Chief Complaint And Reason For Visit No Information Reason For Referral Reason For Referral No Information History Of Present Illness Encounter Date Complaint History Of Prese nt Illness No Information Functional Status Date Functional Assessmen t No Information Instructions Date Instruction Additional Infor mation No Information Assessments Type Assessment Date No Information Patient Care Teams Name Effective Dates (start - stop) Status Members No Information
[2025-01-22 13:58] VITALS: BMI 33.0
--- OUTSIDE RECORDS SUMMARY | 2025-01-26 01:36 | XMS_ITS | Encounter Summary ---
Author Organization [facility] Address [address] [place] [address] Care Team Providers Care Ore Smelter Name Role Phone Isidro Heredia MD Unavailable [phone] Tomas Hyman MD Primary Care Provider [phone] Encounter Details Date Type Department Care Team (Late Contact Info) Description 12/07/2024 Results Follow-Up [facility] - Rheumatology [address] [place] [address] Gloria Smith MD [address] [place] [phone] Social History Tobacco Use Types Packs/Day Years Used Date Smoking Tobacco: Never Passive Smoke Exposure: Never Smokeless Tobacco: Never Alcohol Use Standard Drinks/Week Comments No 0 (1 standard drink = 0.6 oz pur e alcohol) PHQ-2 Answer Date Recorded Patient Health Questionnaire-2 Score 0 11/18/2024 Sex and Gender Information Value Date Recorded Sex Assigned at Not on file Legal Sex Male 4:23 AM PHOTO TECH Gender Identity Not on file Sexual Orientation Not on file 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 Not on file Not on file documented as of this encounter Plan of Treatment Upcoming Encounters Date Type Department Care Team (Late Contact Info) Description 03/04/2025 1:00 PM PHOTO TECH Appointment [facility] - Rheumatology [address] [place] [address] 04/03/2025 10:00 AM PHOTO TECH Office Visit [facility] - Rheumatology [address] [place] [address] Gloria Smith MD [address] [place] [phone] 05/06/2025 11:00 AM PHOTO TECH Appointment [facility] - Rheumatology [address] [place] [address] [phone] documented as of this encounter Visit Diagnoses Not on filedocumented in this encounter Care Teams Ore Smelter Relationship Specialty Start Date End Date Tomas Hyman MD [address] [facility] [address] [place] [address] PCP - General Family Medicine 09/05/18 Isidro Heredia MD Rheumatology 02/09/11 documented as of this encounter
--- OUTSIDE RECORDS SUMMARY | 2025-01-26 01:36 | XMS_ITS | Patient Health Record ---
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
--- OUTSIDE RECORDS SUMMARY | 2025-01-26 01:36 | XMS_ITS | Clinical Summary ---
Author Organization [facility] Address [address] [place] [address] Care Team Providers Care Vinyl Top Installer Name Role Phone Isidro Heredia MD Unavailable Tomas Hyman MD Primary Care Provider [phone] Source Comments [facility],non-owned Affiliates and Associated Physician Practices is amultiple site organization consisting of ambulatory clinics and hospital sitesin [place], [place], [place] and [place]. This disclosure is being madepursuant to the Care Everywhere program and may not contain all information available regarding this patient. Last updated 18.[facility] [employer] Allergies Active Allergy Reactions Criticality Noted Date [...] (one) tablet by mouth 2 times daily with morning and evening meal Active hydroCHLOROthiaz john (HYDRODIURIL) 25 MG tablet [...] differently:40 mg Oral2 TIMES DAILY, Reported on 01/07/2025 buPROPion (Wellbutrin) 100 MG tablet Take 1 [...] times daily 180 capsule 1 5 Active methotrexate 2.5 MG tabletIndication s:Rheumatoid arthritis of multiple sites with negative rheumatoid factor (HCC) Take 6 (six) tablets by mouth every 7 days (once a week) 72 tablet 5 Active gabapentin (Neurontin) 300 MG capsuleIndicatio ns:Neuropathy Take 1 (one) capsule by mouth 3 times daily 270 capsule 1 5 Active Active Problems Problem Noted Date Diagnosed Date Triceps tendonitis 08/01/2017 Triceps tendonitis 01/04/2017 Chronic right-sided low back pain with right-wang ed sciatica 09/13/2015 Abnormal LFTs 04/07/2015 Lumbar radiculopathy 05/22/2014 Other and unspecified hyperlipidemia 07/09/2013 Pain medication agreement signed 11/06/2012 Overview (11/06/2012): In multimedia authoring specialist dated 10/14/12 Chronic pain syndrome 12/11/2011 Subacromial bursitis 09/04/2011 Anemia 08/30/2009 Osteopenia 08/24/2008 Overview (09/14/2014): Start date 08/13/2007 CT Bone Densitometry GERD (gastroesophageal reflux disease) 9 Rheumatoid arthritis of [facility] with negative rheumatoid factor 07/21/2008 Overview (03/07/2015): Dx start date 06/2004, Remicade 10/2004-08/02/2005 inadequate response, Orencia 09/13/2005-11/22/2005 inadequate response, Rituxan 12/06/2005-05/01/2006, Humira 08/13/2006, Methotrexate 08/2004- 02/08/2013 , Xray hands 2005 - shows scattered tiny erosions in MCP joints. Encounters Date Type Department Care Team Description 01/07/2025 10:49 AM CDT - 01/07/2025 11:59 PM CDT Hospital Encounter [facility] - Rheumatology [address] [place] [address] Gloria Smith MD Rheumatology Discharge Disposition: Home or Self Care 12/30/2024 Orders Only [address] [address] Gloria Smith MD 12/07/2024 Results Follow-Up [address] [address] Gloria Smith MD 11/25/[address] [address] Gloria Smith MD MEDICATION REFILL 11/18/2024 11:40 AM CDT Office Visit [address] [address] Gloria Smith MD Rheumatoid arthritis of multiple sites with negative rheumatoid factor (HCC) (Primary Dx); Encounter for other specified special examinations 11/18/2024 Travel 10/29/2024 9:44 AM CDT - 10/29/2024 11:59 PM CDT Hospital Encounter [address] [address] Gloria Smith MD Rheumatology Discharge Disposition: Home or Self Care 10/29/2024 Travel from Last 3 Months Immunizations Immunization Administration Dates Next Due Mailjet primary monoval ent 12+ yr 0.3mL Purple [...] on file Legal Sex Male 4:23 AM [employer]HOLE [employer]ER J[employer]STING Gender Identity Not on file Sexual Orientation Not on file Occupation Industry Job Start Date Job End Date [employer] Not on file Not on file Not on file Last Filed Vital Signs Vital Sign Reading Time Taken Comments Blood Pressure 114/78 01/07/2025 11:06 AM CDT Pulse 113 01/07/2025 11:06 AM CDT Temperature 36.3 C (97.4 F) 01/07/2025 11:06 AM CDT Respiratory Rate 16 11/18/2024 11:0 9 AM CDT Oxygen Saturation 97% 10/15/2024 2:46 PM CDT Inhaled Oxygen Concentration - - Weight 104.9 kg (231 lb 3.2 oz) 025 11:06 AM CDT Height 177.8 cm (5' 10) 10/15/2024 2:46 PM CDT Body Mass Index 33.17 10/15/2024 2:46 PM CDT Plan of Treatment Upcoming Encounters Date Type Department Care Team (Late st Contact Info) Description 03/04/2025 1:00 PM [employer] Appointment [facility] - Rheumatology [address] [place] [address] [phone] 04/03/2025 10:00 AM [employer]ING Office Visit [facility] - Rheumatology [address] [place] [address] [phone] Gloria Smith MD [address] [place] [address] [phone] 05/06/2025 11:00 AM [employer] Appointment [facility] Rheumatology [address] [place] [id number] Health Maintenance Due Date Last Done Comments [...] - Risk 60-74 years 1-dose series) 2022 COVID-19 VACCINE (7 - Pfizer risk 2023- season) 2024 02/18/2024, 03/12/2023, 04/04/2022, Additional history exists INFLUENZA VACCINE (#1) 2024 4, 03/12/2023, 04/04/2022, Additional history exists PNEUMOCOCCAL VACCINE 50+ (2 of 2 - PCV) 07/23/2025 07/23/2024 SCREENING FOR DIABETES 12/02/2027 5, 10/02/2024, 07/28/2024, Additional history exists DEPRESSION SCREENING Completed 10/15/2024, 02/08/2024, 05/19/2022, Additional history exists HEPATITIS C SCREENING Completed 12/01/2024, 022 HEPATITIS B VACCINE Aged Out No longe [...] Diagnosis Comments HEPATITIS SCREEN ACUTE ([facility]) Routine 12/01/2024 11:21 AM CDT Rheumatoid arthritis of multiple sites with negative rheumatoid factor (HCC) Encounter for other specified special examinations QUANTIFERON TB-GOLD Routine 12/01/2024 1 1:20 AM CDT Rheumatoid arthritis of multiple sites with negative rheumatoid factor (HCC) C-REACTIVE PROTEIN Routine 12/01/2024 11 :20 AM CDT Rheumatoid arthritis of multiple sites with negative rheumatoid factor (HCC) ERYTHROCYTE SEDIMENTATION RATE Routine 12/01/2024 11:20 AM CDT Rheumatoid arthritis of multiple sites with negative rheumatoid factor (HCC) COMPREHENSIVE METABOLIC PANEL Routine 12/01/2024 11:20 AM CDT Rheumatoid arthritis of multiple sites with negative rheumatoid factor (HCC) CBC W AUTO DIFFERENTIAL Routine 12/01/2024 11:20 AM CDT Rheumatoid arthritis of multiple sites with negative rheumatoid factor (HCC) from Last 3 Months Results * HEPATITIS SCREEN ACUTE ([facility]) (12/01/2024 11:21 AM CDT) Hepatitis A Virus Antibody IgM Negative Negative [facility] INSURANCE BILL Comment: A negative anti-HAV IgM result suggests no recent or current HAV infection. Hepatitis B Virus Surface Antigen Negative Negative [facility] INSURANCE BILL Hepatitis B Core Virus Antibody IgM Negative Negative [facility] INSURANCE BILL Hepatitis C Antibody Non Reactive Non Reactive [facility] INSURANCE BILL Comment: Performed at: [address] [id number] Electrician Second: Camilo aLtif PhD, Phone: [phone] Interpretation Comment [facility] INSURANCE BILL Comment: Not infected with HCV unless early or acute infection is suspected (which may be delayed in an immunocompromised individual), or other evidence exists to indicate HCV infection. Blood BLOOD SPECIMEN / Unknown 12/01/2024 11:21 AM CDT 12/01/2024 Narrative [facility] INSURANCE BILL - 12/02/2024 6:09 AM CDT Performed at: [address] [place] [id number] Electrician Second: Camilo Latif PhD, Phone: [phone] Gloria Smith MD LAB - CHEMISTRY ORDERABLES Final Result Performing Organization Address City/[facility] Co de Phone Number [facility] INSURANCE BILL [address] [place] [address] * C-REACTIVE PROTEIN (12/01/2024 11:20 AM CDT) [facility] C-Reactive Protein <1 0 - 10 mg/L [facility] INSURANCE BILL Blood BLOOD SPECIMEN / Unknown 12/01/2024 11:20 AM CDT 12/01/2024 Narrative [facility] INSURANCE BILL - 12/02/2024 7:09 AM CDT Performed at: [address] [place] [address] [id number] Electrician Second: Camilo Latif PhD, Phone: [phone] Gloria Smith MD LAB - CHEMISTRY ORDERABLES Final Result Performing Organization Address City/[facility] Co de Phone Number [facility] INSURANCE BILL [address] [place] [address] * QUANTIFERON TB-GOLD (12/01/2024 11:20 AM CDT) [facility] QuantiFERON Incubation Incubation performed. [facility] INSURANCE BILL QuantiFERON-TB Gold Plus Negative Negative [facility] INSURANCE BILL Comment: No response to M tuberculosis antigens detected. Infection with M tuberculosis is unlikely, but high risk individuals should be considered for additional testing (ATS/IDSA/CDC Clinical Practice Guidelines, 2017). The reference range is an Antigen minus Nil result of <0.35 IU/mL. Chemiluminescence immunoassay methodology Performed at: [address] [place] [id number] Electrician Second: Camilo Latif PhD, Phone: [phone] QuantiFERON Criteria Comment [facility] INSURANCE BILL Comment: QuantiFERON-TB Gold Plus [...] for the test. QuantiFERON TB1 Ag Value 0.05 IU/mL [facility] INSURANCE BILL QuantiFERON TB2 Ag Value 0.05 IU/mL [facility] INSURANCE BILL QuantiFERON Nil Value 0.06 IU/mL [facility] INSURANCE BILL QuantiFERON Mitogen Value >10.00 IU/mL [facility] INSURANCE BILL Blood BLOOD SPECIMEN / Unknown 12/01/2024 11:20 AM CDT 12/01/2024 Narrative [facility] INSURANCE BILL - 12/04/2024 6:09 AM CDT Performed at: [address] [place] [id number] Electrician Second: Camilo Latif PhD, Phone: [phone] Gloria Smith MD LAB - CHEMISTRY ORDERABLES Final Result [facility] INSURANCE BILL [address] [place] [address] * ERYTHROCYTE SEDIMENTATION RATE (12/01/2024 11:20 AM CDT) [facility] Erythrocyte Sedimentation Rate Westergren 11 0 - 30 mm/hr [facility] INSURANCE BILL Blood BLOOD SPECIMEN / Unknown 12/01/2024 11:20 AM CDT 12/01/2024 Narrative [facility] INSURANCE BILL - 12/02/2024 7:09 AM CDT Performed at: 01 - [id number] [place], [place] [id number] Electrician Second: Camilo Latif PhD, Phone: [phone] us Gloria Smith MD LAB - HEMATOLOGY ORDERABLES Carmel l Result [facility] INSURANCE BILL [address] [place] [address] * (ABNORMAL) CBC WITH DIFFERENTIAL (12/01/2024 11:20 AM CDT) WBC 10.4 3.4 - 10.8 x10E3/uL [facility] INSURANCE BILL RBC 4.04(L) 4.14 - 5.80 x10E6/uL [facility] INSURANCE BILL Hemoglobin 12.2(L) 13.0 - 17.7 g/dL [facility] INSURANCE BILL Hematocrit 38.4 37.5 - 51.0 % [facility] INSURANCE BILL MCV 95 79 - 97 fL [facility] INSURANCE BILL MCH 30.2 26.6 - 33.0 pg [facility] INSURANCE BILL MCHC 31.8 31.5 - 35.7 g/dL [facility] INSURANCE BILL RDW 13.1 11.6 - 15.4 % [facility] INSURANCE BILL Platelet Count 175 150 - 450 x10E3/uL [facility] INSURANCE BILL Granulocytes % 46 Not Estab. % [facility] INSURANCE BILL Lymphocytes % 43 Not Estab. % [facility] INSURANCE BILL Monocytes % 7 Not Estab. % [facility] INSURANCE BILL Eosinophils % 3 Not Estab. % [facility] INSURANCE BILL Basophils % 1 Not Estab. % [facility] INSURANCE BILL Granulocytes Absolute 4.7 1.4 - 7.0 x10E3/uL [facility] INSURANCE BILL Lymphocytes Absolute 4.5(H) 0.7 - 3.1 x10E3/uL [facility] INSURANCE BILL Monocytes Absolute 0.7 0.1 - 0.9 x10E3/uL [facility] INSURANCE BILL Eosinophils Absolute 0.3 0.0 - 0.4 x10E3/uL [facility] INSURANCE BILL Basophils Absolute 0.1 0.0 - 0.2 x10E3/uL [facility] INSURANCE BILL Immature Granulocytes 0 Not Estab. % [facility] INSURANCE BILL Immature Granulocytes Absolute 0.0 0.0 - 0.1 x10E3/uL [facility] INSURANCE BILL Blood BLOOD SPECIMEN / Unknown 12/01/2024 11:20 AM CDT 12/01/2024 Narrative [facility] INSURANCE BILL - 12/01/2024 11:07 PM CDT Performed at: 01 - [facility] [address] [place], [place] [id number] Electrician Second: Camilo Latif PhD, Phone: [phone] us Gloria Smith MD LAB - HEMATOLOGY ORDERABLES Carmel norton Result [facility] INSURANCE BILL [address] [place] [address] * COMPREHENSIVE METABOLIC PANEL (12/01/2024 11:20 AM CDT) Glucose 89 70 - 99 mg/dL [facility] INSURANCE BILL BUN 22 8 - 27 mg/dL [facility] INSURANCE BILL Creatinine 1.07 0.76 - 1.27 mg/dL [facility] INSURANCE BILL eGFR by CKD-EPI 78 >59 mL/min/1.7 3 [facility] INSURANCE BILL BUN/Creatinine Ratio 21 10 - 24 [facility] INSURANCE BILL Sodium 140 134 - 144 mmol/L [facility] INSURANCE BILL Potassium 4.4 3.5 - 5.2 mmol/L [facility] INSURANCE BILL Chloride 103 96 - 106 mmol/L [facility] INSURANCE BILL CO2 20 20 - 29 mmol/L [facility] INSURANCE BILL Calcium 8.9 8.6 - 10.2 mg/dL [facility] INSURANCE BILL Protein Total 6.4 6.0 - 8.5 g/dL [facility] INSURANCE BILL Albumin 4.0 3.9 - 4.9 g/dL [facility] INSURANCE BILL Globulin Total 2.4 1.5 - 4.5 g/dL [facility] INSURANCE BILL Bilirubin Total 0.3 0.0 - 1.2 mg/dL [facility] INSURANCE BILL Alkaline Phosphatase 69 44 - 121 IU/L [facility] INSURANCE BILL AST 19 0 - 40 IU/L [facility] INSURANCE BILL ALT 24 0 - 44 IU/L [facility] INSURANCE BILL Blood BLOOD SPECIMEN / Unknown 12/01/2024 11:20 AM CDT 12/01/2024 Narrative [facility] INSURANCE BILL - 12/03/2024 7:09 AM CDT Performed at: [facility] - [facility] [address] [place], [place] [id number] Electrician Second: Camilo Latif PhD, Phone: [phone] Gloria Smith MD LAB - CHEMISTRY ORDERABLES Final Result [facility] INSURANCE BILL [address] [place] [address] from Last 3 Months Insurance MEDICARE * Guarantor: CHALINO CASEY Account Type Relation to Patient Date of Phone Billing Address Personal/Family 1960 [address] [place], [address] * Guarantor: CHALINO CASEY Account Type Relation to Patient Date of Phone Billing Address Personal/Family [address] [place], [address] * Guarantor: CHALINO CASEY Account Type Relation to Patient Date of Phone Billing Address Personal/Family [address] [place], [address] Care Teams Vinyl Top Installer Relationship Specialty Start Date End Date Tomas Hyman MD [address] [facility] [place] [address] PCP - General Family Medicine 09/05/18 Isidro Heredia MD Rheumatology 02/09/11
--- OUTSIDE RECORDS SUMMARY | 2025-01-26 01:36 | XMS_ITS | Encounter Summary ---
Author Organization [facility] Address [address] [place] [address] Care Team Providers Care Electrical Manager Name Role Phone Nolberto Nicole MD Primary Care Provider [phone] Isidro Heredia MD Unavailable [phone] Tomas Hyman MD Primary Care Provider [phone] Tomas Hyman MD Primary Care Provider [phone] Encounter Details Date Type Department Care Team (Late st Contact Info) Description 08/18/2008 [facility] Outpatient Visit EXTERNAL NON-[facility] DEPT Isidro Heredia MD [address] [place] [address] Social History Tobacco Use Types Packs/Day Years Used Date Smoking Tobacco: Never Alcohol Use Standard Drinks/Week Comments No 0 (1 standard drink = 0.6 oz pur e alcohol) Sex and Gender Information Value Date Recorded Sex Assigned at Not on file Legal Sex Male 4:23 AM [employer] HE[employer] CO[employer] Gender Identity Not on file Sexual Orientation Not on file documented as of this encounter Plan of Treatment Upcoming Encounters Date Type Department Care Team (Late Contact Info) Description 03/04/2025 1:00 PM [employer] Appointment [facility] - Rheumatology [address] [place] [phone] 04/03/2025 10:00 AM [employer] Office Visit [facility] - Rheumatology [address] [place] [address] Gloria Smith MD [address] [place], [place] [address] [phone] 05/06/2025 11:00 AM [employer] Appointment [facility] - Rheumatology [address] [place] [address] documented as of this encounter Visit Diagnoses Not on filedocumented in this encounter Care Teams Electrical Manager Relationship Specialty Start Date End Date Nolberto Nicole MD PCP - General 07/21/08 12/30/13 Tomas Hyman MD [address] [place] [address] PCP - General Family Medicine 12/31/13 05/09/18 Tomas Hyman MD [address] [place] [address] PCP - General Family Medicine 09/05/18 Isidro Heredia MD Rheumatology 02/09/11 documented as of this encounter
[2025-01-26 11:44] VITALS: BP 112/73; PULSE 103; RESP 16; TEMP 36.4; O2SAT 99; BMI 32.5
[2025-01-26] MEDS: LACTATED RINGERS 1,000 ML 150 ML IV CONT (11:53)
--- NOTE | 2025-01-26 11:57 | WPDANESEPPF ---
Anes - Initial Pre Proc Eval Procedure: Operation Date: 01/26/25 12:45 Proposed Procedures p Esophagogastroduodenoscopy - Cesar Donaldson MD Date/Time: 01/26/25 11:57 Surgeon: Cesar Donaldson MD Pre Op Diagnosis: Gastro-esophageal reflux disease without esophagit Patient Data Age: 64 Gender: M Height: 1.78 m Weight: 102.8 kg Last Vital Signs Temp 97.6 F 01/26/25 11:44 Pulse 103 H 01/26/25 11:44 Resp 16 01/26/25 11:44 BP 112/73 01/26/25 11:44 Pulse Ox 99 01/26/25 11:44 O2 Del Method Room Air 01/26/25 11:44 Allergies Allergy/AdvReac Type Severity Reaction Status Date / Time tuberculin, purified protein Allergy Mild Unknown Verified 01/26/25 11:42 deriva hydroxychloroquine Allergy Unknown vision Verified 01/26/25 11:42 changes Home Medications ?Medication ?Instructions ?Recorded ?Confirmed ?Type atorvastatin 40 mg tablet 40 mg PO HS 05/12/19 01/26/25 History bupropion HCl 100 mg tablet 100 mg PO .q12 05/12/19 01/26/25 History carvedilol 12.5 mg tablet (Coreg) 12.5 mg PO Q12H 05/12/19 01/26/25 History ferrous sulfate 324 mg (65 mg 324 mg PO DAILY 05/12/19 01/26/25 History iron) tablet,delayed release folic acid 1 mg tablet 1 mg PO DAILY 05/12/19 01/26/25 History gabapentin 300 mg capsule 300 mg PO TID 05/12/19 01/26/25 History hydrochlorothiazide 25 mg tablet 25 mg PO DAILY 05/12/19 01/26/25 History methotrexate sodium 2.5 mg tablet 2.5 mg PO WEEKLY 05/12/19 01/22/25 History multivitamin 1 tablet PO DAILY 05/12/19 01/26/25 History prednisone 5 mg tablet 10 mg PO BID 05/12/19 01/26/25 History carboxymethylcellulose 0.5 1 drp ophthalmic (eye) BID 06/01/19 01/26/25 History %-glycerin 0.9 % eye drops (Refresh Optive) glucosamine sulfate 500 mg tablet 500 mg PO DAILY 06/01/19 01/26/25 History (Glucosamine) icosapent ethyl 1 gram capsule 2 g PO BID 06/01/19 01/26/25 History (Vascepa) magnesium citrate 100 mg tablet 100 mg PO EVERY OTHER DAY 06/01/19 01/22/25 History vit C,E,copper,zinc-ebzil6j 250 1 cap PO EVERY OTHER DAY 06/01/19 01/26/25 History mg-lutein 5 mg-zeaxanthin 1 mg capsule (Ocuvite Adult 50 Plus) tizanidine 4 mg tablet 4 mg PO .qhs . #90 tabs 11/24/19 01/26/25 Rx celecoxib 200 mg capsule (Celebrex) 200 mg PO BID 12/22/20 01/26/25 History cholecalciferol (vitamin D3) 10 10 mcg PO DAILY 11/07/23 01/26/25 History mcg (400 unit) capsule (Vitamin D3) golimumab 12.5 mg/mL intravenous See Rx Instructions .Route .COMPLEX 11/07/23 01/26/25 History solution (Simponi ARIA) turmeric 1,000 mg PO DAILY 11/07/23 01/26/25 History potassium 99 mg tablet 49.5 mg PO BID 04/27/24 01/26/25 History finasteride 5 mg tablet 5 mg PO DAILY #90 tabs 05/01/24 01/26/25 Rx tamsulosin 0.4 mg capsule (Flomax) 0.4 mg PO DAILY #20 caps 05/03/24 01/26/25 Rx aspirin 81 mg tablet,delayed 81 mg PO DAILY #90 tabs 08/18/24 01/26/25 Rx release cetirizine 10 mg tablet (Zyrtec) 10 mg PO DAILY #90 tabs 08/18/24 01/26/25 Rx pantoprazole 40 mg tablet,delayed 40 mg PO BID #180 tabs 11/26/24 01/26/25 Rx release Patient hx anesthesia problems: none Family hx anesthesia problems: none Results Review: All pre-operative results and documents have been reviewed as part of the pre-operative evaluation. [facility] Past Medical History Medical History Erosive esophagitis Dysphagia GERD (gastroesophageal reflux disease) Dilated aortic root Osteopenia History of retinal detachment right eye Impaired fasting glucose Leukocytosis Enterococcus UTI History of gastroesophageal reflux (GERD) Chronic prostatitis Essential (primary) hypertension Left retinal detachment Mixed hyperlipidemia Rheumatoid arthritis, unspecified Surgical History Surgical History History of detached retina repair right eye History of tonsillectomy Family History Family History Mother Hypertension Cerebrovascular accident Father Patient's father is in good health Acute myocardial infarction Sibling No problems noted. Social History Social History Smoking status: Never smoker Second hand tobacco smoke exposure: No Alcohol intake: never Substance use: never Substance use type: does not use Do You Feel Safe in your Home?: Yes Lack of Transportation: No Lack of Food: Never True Current Housing: I Have Housing Concerned About Future Housing: No Difficulty Paying Gas/Electric Bills: No Difficulty Paying for Meds: No Currently Unemployed: No Education: Master's Degree or Higher Difficulty w/ Childcare or Family Care: No Living arrangements: with family Occupation/Education: retired Gender identity (if verbalized by the patient): Male Spiritual care concerns: No Agree to blood products: Yes Anes - Eval Final PreProcedure Day of Procedure 01/26/25 11:57 Patient weight: obese Lungs: normal air movement Airway: Mallampati scale class II Neurological: alert and oriented Last oral intake: >/= 8 hours ASA classification: III Emergent: no Anesthetic plan: proceed Anesthesia type and monitoring: general GIVS and standard monitoring Results Review: All pre-operative results and documents have been reviewed as part of the pre-operative evaluation. HTN, hyperlipidemia, PRASHANTH on CPAP, hx of dysphagia. Active, limited by back pain/disc pain, walks w cane, no cp or sob w short distance walking. Informed Consent: The patient's anesthetic plan and its attendant risks and benefits were discussed with the patient/family/POA. Questions were solicited and answers provided to the satisfaction of the patient/family/POA.
--- NOTE | 2025-01-26 12:38 | WPDHPUPDATE1 ---
History and Physical Update Update Date/Time: 01/26/25 12:38 History and Physical has been reviewed, including an updated exam of the patient. There are NO changes in the patient's condition. Risks, benefits, and alternatives have been discussed and questions answered. Patient agrees to proceed with procedure.
[2025-01-26 12:42] VITALS: BP 102/68; PULSE 81; RESP 13; O2SAT 94
--- NOTE | 2025-01-26 12:42 | S_PTH ---
PATIENT: Chalino Deng LOC: [facility] Andrade#:[id number] AGE/SX: 64/M ROOM: RE01/26/[address]: Cesar Donaldson MD : 1960 BED: DIS: 01/26/2025 SPEC #: [id number] RECD: 01/26/25 13:14 STATUS: TONA RE #: [id number] DREAD: 01/26/25 12:[address]: Cesar Donaldson DEPT: [facility] Surgical RECD BY: Yesenia Nava ENTERED: 01/26/25 13:15 SP TYPE: Surgical OTHR DR: Tomas Hyman MD Tissues: A - Gastric Biopsy B - Esophageal Biopsy Procedures: Hematoxylin and Eosin Stain Gross and Microscopic Level 4
[2025-01-26 12:52] VITALS: BP 100/71; PULSE 74; RESP 12; O2SAT 95
[2025-01-26 13:02] VITALS: BP 115/68; PULSE 71; RESP 18; O2SAT 96
== END 2025-01-26 13:07 | disposition home or self-care (01) ==
PROVIDERS: PCP Family Medicine; Referring Provider Internal Medicine Gastroenterology; Visit Provider Internal Medicine Gastroenterology
PROC: 0DJ08ZZ Inspection of Upper Intestinal Tract, Via Natural or Artificial Opening Endoscopic (ICD-10-PCS; CPT 43239; principal; 2025-01-26 12:45)
DX: K21.00 Gastro-esophageal reflux disease with esophagitis, without bleeding (principal); K44.9 Diaphragmatic hernia without obstruction or gangrene; K29.50 Unspecified chronic gastritis without bleeding; K31.89 Other diseases of stomach and duodenum; I10 Essential (primary) hypertension; E78.2 Mixed hyperlipidemia; G47.33 Obstructive sleep apnea (adult) (pediatric); N41.1 Chronic prostatitis; M85.88 Other specified disorders of bone density and structure, other site; D72.829 Elevated white blood cell count, unspecified; M06.9 Rheumatoid arthritis, unspecified; E66.9 Obesity, unspecified; Z68.32 Body mass index [BMI] 32.0-32.9, adult; Z79.52 Long term (current) use of systemic steroids; Z79.1 Long term (current) use of non-steroidal anti-inflammatories (NSAID); Z79.620 Long term (current) use of immunosuppressive biologic; Z79.891 Long term (current) use of opiate analgesic; Z79.82 Long term (current) use of aspirin; Z99.89 Dependence on other enabling machines and devices; Z98.890 Other specified postprocedural states; Z87.19 Personal history of other diseases of the digestive system; Z82.49 Family history of ischemic heart disease and other diseases of the circulatory system
CPT/HCPCS: 43239; 88305; J2704; J7120